=== PATIENT | female | born 1945 | race Caucasian/White ===

== ENCOUNTER → 2020-05-06 08:53 | Outpatient (BNVA) | payer MEDICARE, SELFPAY | PROVIDERS: PCP Hospitalist; Referring Provider Hospitalist; Visit Provider Hospitalist | DX: J44.9 Chronic obstructive pulmonary disease, unspecified (principal); G47.33 Obstructive sleep apnea (adult) (pediatric); R91.8 Other nonspecific abnormal finding of lung field; J70.1 Chronic and other pulmonary manifestations due to radiation; Z99.89 Dependence on other enabling machines and devices; Z79.51 Long term (current) use of inhaled steroids | CPT/HCPCS: 99212 ==

== ENCOUNTER → 2020-07-28 10:46 | Outpatient (BNVA) | payer MEDICARE, SELFPAY | PROVIDERS: PCP Hospitalist; Visit Provider Hospitalist | DX: R91.8 Other nonspecific abnormal finding of lung field (principal); J70.1 Chronic and other pulmonary manifestations due to radiation; G47.33 Obstructive sleep apnea (adult) (pediatric); J44.9 Chronic obstructive pulmonary disease, unspecified; D68.61 Antiphospholipid syndrome | CPT/HCPCS: 99212 ==

== ENCOUNTER → 2020-08-13 14:44 | Outpatient (BNVA) | payer MEDICARE, SELFPAY | PROVIDERS: PCP Hospitalist; Visit Provider Internal Medicine | DX: R07.89 Other chest pain (principal); J70.1 Chronic and other pulmonary manifestations due to radiation; J44.9 Chronic obstructive pulmonary disease, unspecified; R91.8 Other nonspecific abnormal finding of lung field; D68.61 Antiphospholipid syndrome; G47.33 Obstructive sleep apnea (adult) (pediatric); Z79.01 Long term (current) use of anticoagulants; Z79.899 Other long term (current) drug therapy; Z99.89 Dependence on other enabling machines and devices | CPT/HCPCS: 99212 ==

== ENCOUNTER → 2020-08-20 15:04 | Outpatient (BNVA) | payer MEDICARE, SELFPAY | PROVIDERS: PCP Hospitalist; Visit Provider Hospitalist | DX: R07.82 Intercostal pain (principal); J70.1 Chronic and other pulmonary manifestations due to radiation; R91.8 Other nonspecific abnormal finding of lung field; G47.33 Obstructive sleep apnea (adult) (pediatric); G44.1 Vascular headache, not elsewhere classified | CPT/HCPCS: Q3014 ==

== ENCOUNTER → 2020-08-31 09:50 | Outpatient (BNVA) | payer MEDICARE, SELFPAY | PROVIDERS: PCP Hospitalist; Visit Provider Hospitalist | DX: R07.82 Intercostal pain (principal); D68.61 Antiphospholipid syndrome; R91.8 Other nonspecific abnormal finding of lung field; G47.33 Obstructive sleep apnea (adult) (pediatric); J70.1 Chronic and other pulmonary manifestations due to radiation; J44.1 Chronic obstructive pulmonary disease with (acute) exacerbation; I31.3 Pericardial effusion (noninflammatory) | CPT/HCPCS: 99212 ==

== ENCOUNTER → 2020-09-09 09:20 | Outpatient (BNVA) | payer MEDICARE, SELFPAY | PROVIDERS: PCP Hospitalist; Visit Provider Hospitalist | DX: Z13.89 Encounter for screening for other disorder (principal) | CPT/HCPCS: 99212 ==

== ENCOUNTER 2020-09-09 10:28 | Outpatient (REF) | payer MEDICARE, SELFPAY ==
--- NOTE | 2020-09-09 11:00 | PFT_ITS ---
INDICATION: Dyspnea. SPIROMETRY: The FEV1 to FVC of 76% with an FEV1 of 1.63 L, which is 84% predicted, and an FVC of 2.13 L, which is 82% predicted. No significant response to bronchodilators noted. Maximum voluntary ventilation 82% predicted. LUNG VOLUMES: Total lung capacity 76% predicted with an expiratory reserve volume of 59% predicted. DIFFUSION CAPACITY: DLCO of 41% predicted. COMPARISONS: None available at this time. INTERPRETATION: No obstructive ventilatory defect. No significant response to bronchodilators noted and normal maximum voluntary ventilation. The patient does have a mild restrictive ventilatory defect likely secondary to underlying radiation fibrosis and lung resection. In addition to that, the patient does have a severe decrease in the diffusion capacity secondary to her underlying COPD, emphysema, pulmonary fibrosis and lung resection. Clinical correlation warranted. We will compare to previous PFT when available. MD ASHLEY Martino/MODGabriella / [id number]
== END 2020-09-09 10:29 | disposition home or self-care (01) ==
LOC: HO.RESP 10:28
PROVIDERS: PCP Hospitalist; Visit Provider Hospitalist
DX: J44.1 Chronic obstructive pulmonary disease with (acute) exacerbation (principal)
CPT/HCPCS: 94010; 94727; 94729; 99212

== ENCOUNTER → 2020-09-25 11:06 | Outpatient (BNVA) | payer MEDICARE, SELFPAY | PROVIDERS: Visit Provider Hospitalist | DX: R07.82 Intercostal pain (principal); J44.1 Chronic obstructive pulmonary disease with (acute) exacerbation; I31.3 Pericardial effusion (noninflammatory); A31.9 Mycobacterial infection, unspecified; J70.1 Chronic and other pulmonary manifestations due to radiation; D68.61 Antiphospholipid syndrome; R91.8 Other nonspecific abnormal finding of lung field; G47.33 Obstructive sleep apnea (adult) (pediatric); Z79.899 Other long term (current) drug therapy | CPT/HCPCS: 99212 ==

== ENCOUNTER → 2020-10-05 13:21 | Outpatient (BNVA) | payer MEDICARE, SELFPAY | PROVIDERS: Visit Provider Internal Medicine Cardiovascular Disease | DX: R07.82 Intercostal pain (principal); R06.00 Dyspnea, unspecified | CPT/HCPCS: 93005; 99202 ==

== ENCOUNTER → 2020-11-09 12:57 | Outpatient (BNVA) | payer MEDICARE, SELFPAY | PROVIDERS: PCP Hospitalist; Visit Provider Hospitalist | DX: J44.1 Chronic obstructive pulmonary disease with (acute) exacerbation (principal); G47.33 Obstructive sleep apnea (adult) (pediatric); R91.8 Other nonspecific abnormal finding of lung field; J70.1 Chronic and other pulmonary manifestations due to radiation; D68.61 Antiphospholipid syndrome | CPT/HCPCS: 99212 ==

== ENCOUNTER → 2020-11-26 13:15 | Outpatient (BNVA) | payer MEDICARE, SELFPAY | PROVIDERS: PCP Hospitalist; Visit Provider Internal Medicine Cardiovascular Disease | DX: R06.00 Dyspnea, unspecified (principal); I27.20 Pulmonary hypertension, unspecified; R94.39 Abnormal result of other cardiovascular function study; D68.61 Antiphospholipid syndrome | CPT/HCPCS: 99212 ==

== ENCOUNTER 2020-11-27 09:01 | Outpatient (REF) | payer MEDICARE, SELFPAY ==
--- NOTE | ~2020-11-27 | XR_ITS ---
EXAMINATION: XR CHEST CLINICAL INFORMATION: Intercostal pain COMPARISON: Previous chest x-ray most recent April [address] scans most recent June 2020 TECHNIQUE: 2 views of the chest were obtained. FINDINGS: The cardiac and mediastinal contours are stable. There are postoperative changes to the left hemithorax with shift of the central mediastinal structures to the left. There is linear scarring or subsegmental atelectasis in the left mid and lower chest. The right lung is clear. There is a a small left pleural effusion or pleural thickening that is stable. There is no right pleural effusion. There are degenerative changes of the spine. There is an old healed 10 rib fracture is seen on the lateral view that is unchanged from previous chest x-rays. No acute fracture or bone lesion is seen. XR/XR chest 2V IMPRESSION: Stable postsurgical changes to the left hemithorax. Small left pleural effusion or pleural thickening and minimal scarring or chronic subsegmental atelectasis in the left lower lung similar to previous exams.
== END 2020-11-27 09:02 | disposition home or self-care (01) ==
LOC: HO.XRAY 09:01
PROVIDERS: PCP Hospitalist; Visit Provider Hospitalist
DX: R07.82 Intercostal pain (principal); B02.29 Other postherpetic nervous system involvement; R06.00 Dyspnea, unspecified; I27.20 Pulmonary hypertension, unspecified; A31.9 Mycobacterial infection, unspecified; J70.1 Chronic and other pulmonary manifestations due to radiation; D68.61 Antiphospholipid syndrome; R91.8 Other nonspecific abnormal finding of lung field; G47.33 Obstructive sleep apnea (adult) (pediatric); J44.1 Chronic obstructive pulmonary disease with (acute) exacerbation; Z99.89 Dependence on other enabling machines and devices; Z79.899 Other long term (current) drug therapy
CPT/HCPCS: 71046; 99212

== ENCOUNTER → 2020-12-21 11:05 | Outpatient (BNVA) | payer MEDICARE, SELFPAY | PROVIDERS: PCP Hospitalist; Visit Provider Nurse Practitioner Family | DX: I27.20 Pulmonary hypertension, unspecified (principal); A31.9 Mycobacterial infection, unspecified; R07.82 Intercostal pain; D68.61 Antiphospholipid syndrome; R91.8 Other nonspecific abnormal finding of lung field; G47.33 Obstructive sleep apnea (adult) (pediatric); J44.1 Chronic obstructive pulmonary disease with (acute) exacerbation | CPT/HCPCS: 99202; 99212 ==

== ENCOUNTER → 2020-12-30 12:43 | Outpatient (BNVA) | payer MEDICARE, SELFPAY | PROVIDERS: Visit Provider Nurse Practitioner Family | DX: M79.602 Pain in left arm (principal); M79.601 Pain in right arm; R07.82 Intercostal pain; I31.3 Pericardial effusion (noninflammatory); I25.10 Atherosclerotic heart disease of native coronary artery without angina pectoris; I73.9 Peripheral vascular disease, unspecified; G47.33 Obstructive sleep apnea (adult) (pediatric); J44.9 Chronic obstructive pulmonary disease, unspecified; G90.521 Complex regional pain syndrome I of right lower limb; I27.20 Pulmonary hypertension, unspecified; I26.99 Other pulmonary embolism without acute cor pulmonale; J90 Pleural effusion, not elsewhere classified; R94.39 Abnormal result of other cardiovascular function study; Z90.2 Acquired absence of lung [part of]; Z85.118 Personal history of other malignant neoplasm of bronchus and lung; Z90.710 Acquired absence of both cervix and uterus; Z88.2 Allergy status to sulfonamides; Z91.041 Radiographic dye allergy status; Z99.89 Dependence on other enabling machines and devices; Z79.51 Long term (current) use of inhaled steroids; Z79.899 Other long term (current) drug therapy | CPT/HCPCS: 93005; 99212 ==

== ENCOUNTER → 2021-01-25 11:08 | Outpatient (BNVA) | payer MEDICARE, SELFPAY | PROVIDERS: PCP Hospitalist; Visit Provider Hospitalist | DX: I20.8 Other forms of angina pectoris (principal); J44.1 Chronic obstructive pulmonary disease with (acute) exacerbation; R06.00 Dyspnea, unspecified; I27.20 Pulmonary hypertension, unspecified; R07.89 Other chest pain; D68.61 Antiphospholipid syndrome; J70.1 Chronic and other pulmonary manifestations due to radiation; R91.8 Other nonspecific abnormal finding of lung field; G47.33 Obstructive sleep apnea (adult) (pediatric); A31.9 Mycobacterial infection, unspecified | CPT/HCPCS: 99212 ==

== ENCOUNTER → 2021-02-01 14:27 | Outpatient (BNVA) | payer MEDICARE, SELFPAY | PROVIDERS: PCP Hospitalist; Visit Provider Hospitalist | DX: J05.0 Acute obstructive laryngitis [croup] (principal); J40 Bronchitis, not specified as acute or chronic; G47.33 Obstructive sleep apnea (adult) (pediatric); J44.1 Chronic obstructive pulmonary disease with (acute) exacerbation; R91.8 Other nonspecific abnormal finding of lung field; J70.1 Chronic and other pulmonary manifestations due to radiation | CPT/HCPCS: 99212 ==

== ENCOUNTER → 2021-02-18 09:23 | Outpatient (BNVA) | payer MEDICARE, SELFPAY | PROVIDERS: Visit Provider Hospitalist | CPT/HCPCS: Q3014 ==

== ENCOUNTER → 2021-03-02 09:03 | Outpatient (BNVA) | payer MEDICARE, SELFPAY | PROVIDERS: PCP Internal Medicine; Visit Provider Hospitalist | DX: G47.33 Obstructive sleep apnea (adult) (pediatric) (principal); J44.1 Chronic obstructive pulmonary disease with (acute) exacerbation; J70.1 Chronic and other pulmonary manifestations due to radiation; J96.10 Chronic respiratory failure, unspecified whether with hypoxia or hypercapnia; R91.8 Other nonspecific abnormal finding of lung field | CPT/HCPCS: 99212 ==

== ENCOUNTER 2021-03-17 09:10 | Outpatient (REF) | payer MEDICARE, SELFPAY ==
--- NOTE | ~2021-03-17 | CT_ITS ---
EXAMINATION: CT CHEST WITHOUT CONTRAST CLINICAL INFORMATION: Lung cancer. COPD. Follow up pulmonary nodules. COMPARISON: Previous chest CT scans, most recent June 2020 and chest x-ray, most recent November 2020. TECHNIQUE: Multidetector volumetric CT imaging of the chest was done. Axial MIP volume rendering provided. Sagittal and coronal reformatted images were obtained. This CT examination was performed using dose optimization techniques as appropriate, variously including the following: *Automated exposure control *Adjustment of mA and/or kV according to patient size (this includes techniques or standardized protocols for targeted exams where dose is matched to indication/reason for exam; i.e. extremities or head) *Use of iterative reconstruction technique DLP: 106 mGy-cm FINDINGS: LUNGS: Left: There are postsurgical changes to the left hemithorax with volume loss, shift of the central mediastinal structures to the left and surgical clips in the left pulmonary hilum. There is scarring or atelectasis seen in the left pulmonary hilum and mild traction bronchiectasis. There is linear scarring or chronic subsegmental atelectasis at the left lung base that is stable. Right: There are new ground-glass attenuation peribronchial opacities in the right upper lobe, largest measuring 7 mm (axial image 86, series 7). The 3 mm right upper lobe nodule (axial image 86, series 7) is stable. The 4 mm ground-glass attenuation nodule in the right upper lobe (axial image 139, series 7) is stable. The 2 x 5 mm ground-glass attenuation right upper lobe nodule (axial image 223, series 7) is stable. The 2 mm peripheral right lower lobe nodule (axial image 340, series 7) is stable. The 3 mm peripheral semisolid right lower lobe nodule (axial image 352, series 7) is stable. The previously identified 3 mm right lower lobe nodule at the posterior lung base that was new on the June 2020 exam is no longer seen. There are clustered new peribronchial nodules seen in the right lower lobe (for example axial image 402, series 7). This probably represents airways disease. MEDIASTINUM: The heart is upper normal in size. There is a trace pericardial effusion or thickening that is stable. There is coronary artery calcification. There are small mediastinal lymph nodes that are stable. No enlarged lymph nodes are seen. PLEURA: There is left pleural thickening. There is a small left pleural effusion. This is increased in size from the most recent exam June 2020. There is no right pleural effusion. AXILLAE: No lymphadenopathy. UPPER ABDOMEN: There is a 1 cm low-attenuation lesion in the upper pole of the left kidney that probably represents a cyst and is stable. OSSEOUS STRUCTURES: There are mild degenerative changes of the spine and scoliosis. CT/CT chest wo con IMPRESSION: Stable postsurgical changes to the left lung. The 3 mm posterior basal right lower lobe nodule that was new on the most recent exam June 2020 is no longer seen. There are new peribronchial ground-glass opacities in the right upper lobe and peribronchial nodules and increased peribronchial attenuation in the right lower lobe probably related to airways disease. Otherwise right pulmonary nodules are stable. Increasing small left pleural effusion compared to June 2020 exam.
== END 2021-03-17 09:11 | disposition home or self-care (01) ==
LOC: HO.CT 09:10
PROVIDERS: PCP Internal Medicine; Visit Provider Hospitalist
DX: R91.8 Other nonspecific abnormal finding of lung field (principal)
CPT/HCPCS: 71250

== ENCOUNTER 2021-03-25 11:10 | Outpatient (REF) | payer MEDICARE, SELFPAY ==
[2021-03-25 14:18] LABS: Appearance Urine HAZY; Color Urine YELLOW; Glucose Urine UA NEG (NEG); Leukocyte Esterase Urine NEG (NEG); Nitrite Urine NEG (NEG); Specific Gravity - Urine 1.025 (1.005-1.025); Urine Blood NEG (NEG); Urine Ketones 5 MG/DL (NEG); Urine Protein NEG (NEG-TRACE)
[2021-03-25 16:03] LABS: Erythrocyte Sedimentation Rate 38 MM/HR (0-20)
[2021-03-30 01:41] LABS: IgA 110 mg/dL (70-320); IgG 759 mg/dL (600-1540); IgM 608 mg/dL (50-300)
[2021-03-30 08:11] LABS: Immunoglobulin E 2 kU/L (<OR=114)
[2021-03-30 19:36] LABS: Immunoglobulin G Subclass 1 359 mg/dL (382-929); Immunoglobulin G Subclass 2 222 mg/dL (241-700); Immunoglobulin G Subclass 3 28 mg/dL (22-178); Immunoglobulin G Subclass 4 41.7 mg/dL (4-86); Immunoglobulin G Total 732 mg/dL (600-1540)
== END 2021-03-25 11:11 | disposition home or self-care (01) ==
LOC: HO.LAB 11:10
PROVIDERS: PCP Internal Medicine; Visit Provider Hospitalist
DX: J44.1 Chronic obstructive pulmonary disease with (acute) exacerbation (principal); J96.10 Chronic respiratory failure, unspecified whether with hypoxia or hypercapnia; J70.1 Chronic and other pulmonary manifestations due to radiation; G47.33 Obstructive sleep apnea (adult) (pediatric); R91.8 Other nonspecific abnormal finding of lung field; R30.0 Dysuria; D80.1 Nonfamilial hypogammaglobulinemia; Z99.89 Dependence on other enabling machines and devices; Z01.84 Encounter for antibody response examination
CPT/HCPCS: 36415; 81003; 82784; 82785; 85652; 86769; 99212

== ENCOUNTER → 2021-04-22 10:12 | Outpatient (BNVA) | payer MEDICARE, SELFPAY | PROVIDERS: Visit Provider Internal Medicine Cardiovascular Disease | DX: I21.4 Non-ST elevation (NSTEMI) myocardial infarction (principal); R07.82 Intercostal pain; D68.61 Antiphospholipid syndrome | CPT/HCPCS: 99212 ==

== ENCOUNTER → 2021-05-07 14:34 | Outpatient (BNVA) | payer MEDICARE, SELFPAY | PROVIDERS: PCP Internal Medicine; Visit Provider Hospitalist | DX: J96.10 Chronic respiratory failure, unspecified whether with hypoxia or hypercapnia (principal); J44.1 Chronic obstructive pulmonary disease with (acute) exacerbation; G47.33 Obstructive sleep apnea (adult) (pediatric); R91.8 Other nonspecific abnormal finding of lung field; J70.1 Chronic and other pulmonary manifestations due to radiation; D80.1 Nonfamilial hypogammaglobulinemia; D68.61 Antiphospholipid syndrome | CPT/HCPCS: 99212 ==

== ENCOUNTER → 2021-05-17 09:31 | Outpatient (BNVA) | payer MEDICARE, SELFPAY | PROVIDERS: PCP Internal Medicine; Referring Provider Internal Medicine; Visit Provider Internal Medicine Cardiovascular Disease | DX: R07.82 Intercostal pain (principal); R06.00 Dyspnea, unspecified | CPT/HCPCS: 99212 ==

== ENCOUNTER → 2021-05-25 13:23 | Outpatient (BNVA) | payer MEDICARE, SELFPAY | PROVIDERS: PCP Internal Medicine; Visit Provider Hospitalist | DX: J96.11 Chronic respiratory failure with hypoxia (principal); G47.33 Obstructive sleep apnea (adult) (pediatric); J44.1 Chronic obstructive pulmonary disease with (acute) exacerbation; R91.8 Other nonspecific abnormal finding of lung field; J70.1 Chronic and other pulmonary manifestations due to radiation; D80.1 Nonfamilial hypogammaglobulinemia; D68.61 Antiphospholipid syndrome; G47.00 Insomnia, unspecified; I27.20 Pulmonary hypertension, unspecified; I26.99 Other pulmonary embolism without acute cor pulmonale; Z88.2 Allergy status to sulfonamides; Z88.8 Allergy status to other drugs, medicaments and biological substances; Z99.81 Dependence on supplemental oxygen; Z91.041 Radiographic dye allergy status; Z91.010 Allergy to peanuts; Z91.013 Allergy to seafood; Z79.01 Long term (current) use of anticoagulants | CPT/HCPCS: 99212 ==

== ENCOUNTER → 2021-06-11 13:53 | Outpatient (BNVA) | payer MEDICARE, SELFPAY | PROVIDERS: PCP Internal Medicine; Referring Provider Internal Medicine; Visit Provider Nurse Practitioner Family | DX: R00.0 Tachycardia, unspecified (principal) | CPT/HCPCS: 93005 ==

== ENCOUNTER → 2021-08-04 13:59 | Outpatient (BNVA) | payer MEDICARE, SELFPAY | PROVIDERS: PCP Internal Medicine; Referring Provider Internal Medicine; Visit Provider Internal Medicine Cardiovascular Disease | DX: R00.2 Palpitations (principal); D68.61 Antiphospholipid syndrome; I60.9 Nontraumatic subarachnoid hemorrhage, unspecified | CPT/HCPCS: 99212 ==

== ENCOUNTER → 2021-08-16 12:27 | Outpatient (REF) | payer MEDICARE, SELFPAY ==
--- NOTE | ~2021-08-16 | XR_ITS ---
EXAMINATION: XR chest 2V CLINICAL INFORMATION: Reason for Exam R07.9 - Chest pain, unspecified COMPARISON: Chest radiograph 11/27/2020, CT chest 03/17/2021 TECHNIQUE: 2 views of the chest XR/XR chest 2V FINDINGS/IMPRESSION: Post surgical changes of left lower lobectomy and volume loss. No pneumothorax. Stable small left pleural effusion and left basilar opacities. Unchanged cardiomediastinal silhouette. Asymmetric lucency of the left hemithorax may be related to patient positioning, given the appearance of the breast shadows.
== END ==
LOC: HO.CARD 12:27
PROVIDERS: Absent Provider Hospitalist; PCP Internal Medicine; Visit Provider Internal Medicine Cardiovascular Disease
DX: R07.9 Chest pain, unspecified (principal); R00.2 Palpitations
CPT/HCPCS: 71046; 93242; 99212

== ENCOUNTER 2021-08-16 13:58 | Outpatient (REF) | payer MEDICARE, SELFPAY ==
[2021-08-16 14:37] LABS: MANUAL DIFF FLAG NO
[2021-08-16 14:42] LABS: Basophils Absolute Auto 0.1 X10*3/uL (0.0-0.2); Basophils Percent Auto 0.5 % (0-2); Eosinophils Absolute Auto 0.1 X10*3/uL (0.0-0.4); Eosinophils Percent Auto 0.7 % (0-4); Hemoglobin 12.1 g/dl (12.0-16.0); Imm Gran Abs Auto 0.09 X10*3/uL (0.00-0.03); Imm Gran Pct Auto 0.9 % (0.0-0.4); Lymphocytes Absolute Auto 1.2 X10*3/uL (1.2-4.9); Lymphocytes Percent Auto 12.3 % (20-40); Mean Corpuscular HGB Conc 31.8 g/dl (31.0-35.0); Mean Corpuscular Hemoglobin 31.4 pg (27.0-33.0); Mean Corpuscular Volume 98.7 fL (80.0-98.0); Monocytes Absolute Auto 1.1 X10*3/uL (0.1-1.2); Monocytes Percent Auto 11.2 % (2-11); Neutrophils Absolute Auto 7.4 x10*3/uL (2.0-8.3); Neutrophils Percent Auto 74.4 % (45-73); Platelet Count 250 X10*3/uL (160-400); Red Blood Count 3.85 X10*6/uL (4.20-5.50); Red Cell Distribution Width 14.1 % (11.0-16.0)
[2021-08-16 14:48] LABS: D Dimer High Sensitivity 285 NG/ML
[2021-08-16 15:06] LABS: Anion Gap 11 (12-20); Blood Urea Nitrogen 16 mg/dL (9-16); Calcium 10.3 mg/dL (8.4-10.2); Carbon Dioxide 32 mmol/L (22-29); Chloride 98 mmol/L (96-108); Estimated Glomerular Filt Rate 59; Glucose Random 95 mg/dL (60-115); Potassium 4.5 mmol/L (3.3-5.1); Sodium 136 mmol/L (135-145)
[2021-08-16 15:09] LABS: Troponin-I High Sensitivity 13.9 ng/L (<3.5-17.0)
[2021-08-16 15:30] LABS: Erythrocyte Sedimentation Rate 30 MM/HR (0-20)
== END 2021-08-16 13:59 | disposition home or self-care (01) ==
LOC: HO.LAB 13:58
PROVIDERS: PCP Internal Medicine; Visit Provider Hospitalist
DX: R07.9 Chest pain, unspecified (principal)
CPT/HCPCS: 36415; 71046; 80048; 84484; 85025; 85379; 85652; 99212

== ENCOUNTER → 2021-08-18 12:49 | Outpatient (REF) | payer MEDICARE, SELFPAY ==
--- NOTE | ~2021-08-18 | NM_ITS ---
EXAMINATION: PULMONARY PERFUSION STUDY CLINICAL INFORMATION: Pain. COMPARISON: The previous lung scan dated 12/30/2019 is available for comparison. Radiographs the chest dated 08/16/2021 are also available for comparison. TECHNIQUE: Following the intravenous administration of 4.0 mCi Tc-99m MAA an 8-view perfusion study was performed using a dual detector gamma scintillation camera. No ventilation images were obtained. FINDINGS: Perfusion images: There is diffusely decreased activity in the left lung. On the 08/16/2021 chest radiographs there is evidence of volume loss and postsurgical changes in the left lung on the perfusion images are well matched to these radiographic findings. Perfusion to the right lung appears normal with no segmental or focal anatomic perfusion defects. Compared to the previous lung scan dated 12/30/2019, there is no significant change in the appearance of either lung. NM/NM pul perfusion IMPRESSION: Very low probability of pulmonary embolism. Chronic left lung the malleus are noted consistent with the chest radiograph appearance and history of prior surgery.
== END ==
LOC: HO.NUCMED 12:49
PROVIDERS: PCP Internal Medicine; Referring Provider Internal Medicine; Visit Provider Hospitalist
DX: R07.9 Chest pain, unspecified (principal)
CPT/HCPCS: 78580; A9540

== ENCOUNTER → 2021-08-31 10:49 | Outpatient (BNVA) | payer MEDICARE, SELFPAY | PROVIDERS: PCP Internal Medicine; Visit Provider Hospitalist | DX: J96.10 Chronic respiratory failure, unspecified whether with hypoxia or hypercapnia (principal); R91.8 Other nonspecific abnormal finding of lung field; J44.1 Chronic obstructive pulmonary disease with (acute) exacerbation; J70.1 Chronic and other pulmonary manifestations due to radiation; G47.33 Obstructive sleep apnea (adult) (pediatric); G47.00 Insomnia, unspecified; D80.1 Nonfamilial hypogammaglobulinemia; D68.61 Antiphospholipid syndrome; R10.9 Unspecified abdominal pain; R07.9 Chest pain, unspecified; Z23 Encounter for immunization | CPT/HCPCS: 90471; 90732; 99212 ==

== ENCOUNTER 2021-09-14 09:39 | Outpatient (REF) | payer MEDICARE, SELFPAY | END 2021-09-14 09:40 | disposition home or self-care (01) | LOC: CF 09:39 | PROVIDERS: PCP Internal Medicine; Visit Provider Hospitalist | DX: J96.10 Chronic respiratory failure, unspecified whether with hypoxia or hypercapnia (principal); G47.33 Obstructive sleep apnea (adult) (pediatric); J44.1 Chronic obstructive pulmonary disease with (acute) exacerbation; J70.1 Chronic and other pulmonary manifestations due to radiation; D80.1 Nonfamilial hypogammaglobulinemia; D68.61 Antiphospholipid syndrome; G47.00 Insomnia, unspecified; I60.9 Nontraumatic subarachnoid hemorrhage, unspecified | CPT/HCPCS: 99212 ==

== ENCOUNTER 2021-09-27 09:49 | Outpatient (REF) | payer MEDICARE, SELFPAY ==
--- NOTE | ~2021-09-27 | CT_ITS ---
EXAMINATION: CT CHEST WITHOUT CONTRAST CLINICAL INFORMATION: Chest pain COMPARISON: Previous chest x-ray March 2021 TECHNIQUE: Multidetector volumetric CT imaging of the chest was done. Axial MIP volume rendering provided. Sagittal and coronal reformatted images were obtained. This CT examination was performed using dose optimization techniques as appropriate, variously including the following: *Automated exposure control *Adjustment of mA and/or kV according to patient size (this includes techniques or standardized protocols for targeted exams where dose is matched to indication/reason for exam; i.e. extremities or head) *Use of iterative reconstruction technique DLP: 176 mGy-cm FINDINGS: LUNGS: There are stable postsurgical changes to the left hemithorax with volume loss, shift of the central mediastinal structures to the left and surgical clips in the left pulmonary hilum. There is atelectasis and focal bronchiectasis seen in the central left lung adjacent to the fissure that appears unchanged. The previously identified clustered peribronchial ground-glass attenuation nodules in the right upper lobe are no longer seen. The previously identified area of ground-glass attenuation and clustered peribronchial nodules in the right lower lobe on March 2021 exam, is no longer seen. The small pulmonary nodules are stable. Largest pulmonary nodule is a 4 mm right upper lobe nodule, axial image 99 series 5, and superior segment right lower lobe nodule, axial image 130 series 5. MEDIASTINUM: There is coronary artery calcification. The mediastinum is otherwise normal. PLEURA: There is a small left pleural effusion. This appears decreased from previous exam. There is no right pleural effusion. AXILLA: No lymphadenopathy. UPPER ABDOMEN: There are small low-attenuation lesions in the upper pole of the left kidney probably representing cysts. OSSEOUS STRUCTURES: Unremarkable. CT/CT chest wo con IMPRESSION: Stable postsurgical changes to the left hemithorax. Resolved ground-glass attenuation in the right upper and right lower lobes and clustered right lower lobe peribronchial nodules from March 2021. Small pulmonary nodules are otherwise stable. Small left pleural effusion slightly decreased from previous exam. Coronary artery calcification. Fleischner guidelines were followed.
== END 2021-09-27 09:50 | disposition home or self-care (01) ==
LOC: HO.CT 09:49
PROVIDERS: Visit Provider Hospitalist
DX: R07.9 Chest pain, unspecified (principal); R91.8 Other nonspecific abnormal finding of lung field
CPT/HCPCS: 71250

== ENCOUNTER → 2021-09-29 10:55 | Outpatient (BNVA) | payer MEDICARE, SELFPAY | PROVIDERS: PCP Internal Medicine; Visit Provider Hospitalist | DX: J44.1 Chronic obstructive pulmonary disease with (acute) exacerbation (principal); J70.1 Chronic and other pulmonary manifestations due to radiation; J96.10 Chronic respiratory failure, unspecified whether with hypoxia or hypercapnia; R91.8 Other nonspecific abnormal finding of lung field; G47.33 Obstructive sleep apnea (adult) (pediatric); G47.00 Insomnia, unspecified; D80.1 Nonfamilial hypogammaglobulinemia; D68.61 Antiphospholipid syndrome; I50.30 Unspecified diastolic (congestive) heart failure | CPT/HCPCS: 99212 ==

== ENCOUNTER → 2021-10-13 14:49 | Outpatient (BNVA) | payer MEDICARE, SELFPAY | PROVIDERS: PCP Internal Medicine; Referring Provider Internal Medicine; Visit Provider Nurse Practitioner Family | DX: R00.2 Palpitations (principal); R06.00 Dyspnea, unspecified; I25.10 Atherosclerotic heart disease of native coronary artery without angina pectoris; D68.61 Antiphospholipid syndrome | CPT/HCPCS: 93005; 99212; Q3014 ==

== ENCOUNTER → 2021-10-27 13:50 | Outpatient (BNVA) | payer MEDICARE, SELFPAY | PROVIDERS: PCP Internal Medicine; Visit Provider Internal Medicine Pulmonary Disease | DX: J45.909 Unspecified asthma, uncomplicated (principal) | CPT/HCPCS: 99212 ==

== ENCOUNTER 2021-11-17 13:02 | Outpatient (REF) | payer MEDICARE, SELFPAY ==
[2021-11-17 14:57] LABS: ABG Refer to POC result
[2021-11-17 15:01] LABS: ABG pCO2 31 mmHg (32-45); ABG pH 7.59 (7.35-7.45)
[2021-11-17 15:02] LABS: ABG Base Excess 9.3 mmol/L; ABG HCO3 30 mmol/L (22-26); ABG pO2 119 mmHg (83-108)
== END 2021-11-17 13:03 | disposition home or self-care (01) ==
LOC: HO.LAB 13:02
PROVIDERS: Absent Provider Hospitalist; PCP Internal Medicine; Referring Provider Internal Medicine; Visit Provider Internal Medicine Cardiovascular Disease
DX: J44.1 Chronic obstructive pulmonary disease with (acute) exacerbation (principal); J96.10 Chronic respiratory failure, unspecified whether with hypoxia or hypercapnia; I50.30 Unspecified diastolic (congestive) heart failure
CPT/HCPCS: 82803; 93005; 99212; Q3014

== ENCOUNTER → 2021-11-24 09:52 | Outpatient (BNVA) | payer MEDICARE, SELFPAY | PROVIDERS: PCP Internal Medicine; Visit Provider Hospitalist | DX: J96.10 Chronic respiratory failure, unspecified whether with hypoxia or hypercapnia (principal); R91.8 Other nonspecific abnormal finding of lung field; G47.33 Obstructive sleep apnea (adult) (pediatric); J44.1 Chronic obstructive pulmonary disease with (acute) exacerbation; J70.1 Chronic and other pulmonary manifestations due to radiation; D80.1 Nonfamilial hypogammaglobulinemia; D68.61 Antiphospholipid syndrome; G47.00 Insomnia, unspecified; K57.92 Diverticulitis of intestine, part unspecified, without perforation or abscess without bleeding | CPT/HCPCS: 99212 ==

== ENCOUNTER → 2021-12-22 09:59 | Outpatient (BNVA) | payer MEDICARE, SELFPAY | PROVIDERS: PCP Internal Medicine; Visit Provider Hospitalist | DX: J44.1 Chronic obstructive pulmonary disease with (acute) exacerbation (principal); R91.8 Other nonspecific abnormal finding of lung field; J96.10 Chronic respiratory failure, unspecified whether with hypoxia or hypercapnia; J70.1 Chronic and other pulmonary manifestations due to radiation; G47.33 Obstructive sleep apnea (adult) (pediatric); I50.30 Unspecified diastolic (congestive) heart failure; D80.1 Nonfamilial hypogammaglobulinemia; D68.61 Antiphospholipid syndrome; G47.00 Insomnia, unspecified; Z86.711 Personal history of pulmonary embolism; Z79.52 Long term (current) use of systemic steroids; Z79.899 Other long term (current) drug therapy; Z99.81 Dependence on supplemental oxygen | CPT/HCPCS: 99212 ==

== ENCOUNTER 2022-01-03 11:10 | Emergency (ER) | payer MEDICARE, SELFPAY ==
--- NOTE | 2022-01-03 | ECG_ITS ---
Test Reason : cp Blood Pressure : / mmHG Vent. Rate : 150 BPM Atrial Rate : 127 BPM P-R Int : 174 ms QRS Dur : 106 ms QT Int : 378 ms P-R-T Axes : -83 -02 146 degrees QTc Int : 597 ms Artifact in tracing Undetermined rhythm Due to poor quality, not suitable for interpretation No previous ECGs available Referred By: Generic ED Physician Electronically Signed By:CAROL ANN PAK
--- NOTE | ~2022-01-03 | XR_ITS ---
EXAMINATION: XR CHEST CLINICAL INFORMATION: Hemoptysis COMPARISON: 08/16/[address] chest 09/27/2021 TECHNIQUE: 2 views of the chest were obtained. FINDINGS: Since the prior chest radiograph, there has been some continued mild decrease in size of the left pleural effusion/pleural thickening. Changes of left lower lobectomy with volume loss persist. Some basilar scarring/atelectasis is seen. The right lung is clear without effusion. Heart size normal. No evidence of CHF. XR/XR chest 2V IMPRESSION: No acute intrathoracic disease. Postoperative changes as described above.
[2022-01-03 11:27] VITALS: BP 156/79; PULSE 85; RESP 18; TEMP 37.1; O2SAT 95; BMI 22.6
--- NOTE | 2022-01-03 11:36 | ECG_ITS ---
Test Reason : cp Blood Pressure : / mmHG Vent. Rate : 080 BPM Atrial Rate : 080 BPM P-R Int : 148 ms QRS Dur : 110 ms QT Int : 390 ms P-R-T Axes : 068 -50 066 degrees QTc Int : 449 ms Normal sinus rhythm Possible Left atrial enlargement Left anterior fascicular block Left ventricular hypertrophy with repolarization abnormality ( R in aVL , [place] product ) Abnormal ECG When compared with ECG of 03-JAN-2022 11:34, due to poor quality of prior EKG, cannot compare. Referred By: Orlin Gruber Electronically Signed By:CAROL ANN PAK
[2022-01-03 11:54] LABS: MANUAL DIFF FLAG NO
[2022-01-03 11:56] LABS: Basophils Absolute Auto 0.1 X10*3/uL (0.0-0.2); Basophils Percent Auto 0.5 % (0-2); Eosinophils Absolute Auto 0.2 X10*3/uL (0.0-0.4); Eosinophils Percent Auto 0.9 % (0-4); Hematocrit 38.8 % (37.0-47.0); Hemoglobin 12.7 g/dl (12.0-16.0); Imm Gran Pct Auto 1.2 % (0.0-0.4); Lymphocytes Absolute Auto 0.7 X10*3/uL (1.2-4.9); Lymphocytes Percent Auto 4.3 % (20-40); Mean Corpuscular HGB Conc 32.7 g/dl (31.0-35.0); Mean Corpuscular Hemoglobin 32.1 pg (27.0-33.0); Mean Platelet Volume 10.5 fL (9.4-12.3); Monocytes Absolute Auto 1.1 X10*3/uL (0.1-1.2); Monocytes Percent Auto 6.2 % (2-11); Neutrophils Absolute Auto 14.8 x10*3/uL (2.0-8.3); Neutrophils Percent Auto 86.9 % (45-73); Platelet Count 266 X10*3/uL (160-400); Red Blood Count 3.96 X10*6/uL (4.20-5.50); White Blood Count 17.1 X10*3/uL (4.8-10.8)
[2022-01-03 12:04] LABS: INTERNATIONAL NORM RATIO 2.4 (0.9-1.1); Prothrombin Time 28.3 SEC (9.9-13.0)
[2022-01-03 12:15] LABS: Anion Gap 15 (12-20); Blood Urea Nitrogen 18 mg/dL (9-16); Carbon Dioxide 27 mmol/L (22-29); Chloride 102 mmol/L (96-108); Creatinine Clr Calc Pharmacy 46.2; Estimated Glomerular Filt Rate > 60; Glucose Random 109 mg/dL (60-115); Potassium 4.6 mmol/L (3.3-5.1); Sodium 139 mmol/L (135-145)
== END 2022-01-03 19:12 | disposition left against medical advice (07) ==
PROVIDERS: Emergency Provider Emergency Medicine; PCP Internal Medicine
DX: R04.2 Hemoptysis (principal); R07.89 Other chest pain; Z79.01 Long term (current) use of anticoagulants; Z79.899 Other long term (current) drug therapy
CPT/HCPCS: 36415; 71046; 80048; 85025; 85610; 93005; 99281; 99283

== ENCOUNTER 2022-01-20 14:59 | Outpatient (REF) | payer MEDICARE, SELFPAY ==
[2022-01-20 15:35] LABS: MANUAL DIFF FLAG NO
[2022-01-20 16:03] LABS: D Dimer High Sensitivity 228 NG/ML
[2022-01-20 16:05] LABS: Basophils Absolute Auto 0.1 X10*3/uL (0.0-0.2); Basophils Percent Auto 0.9 % (0-2); Eosinophils Absolute Auto 0.3 X10*3/uL (0.0-0.4); Eosinophils Percent Auto 2.9 % (0-4); Hematocrit 39.7 % (37.0-47.0); Hemoglobin 12.8 g/dl (12.0-16.0); Imm Gran Abs Auto 0.11 X10*3/uL (0.00-0.03); Imm Gran Pct Auto 1.1 % (0.0-0.4); Lymphocytes Percent Auto 9.8 % (20-40); Mean Corpuscular HGB Conc 32.2 g/dl (31.0-35.0); Mean Corpuscular Hemoglobin 31.7 pg (27.0-33.0); Mean Corpuscular Volume 98.3 fL (80.0-98.0); Mean Platelet Volume 10.9 fL (9.4-12.3); Monocytes Absolute Auto 1.1 X10*3/uL (0.1-1.2); Monocytes Percent Auto 10.8 % (2-11); Neutrophils Absolute Auto 7.8 x10*3/uL (2.0-8.3); Neutrophils Percent Auto 74.5 % (45-73); Platelet Count 259 X10*3/uL (160-400); Red Blood Count 4.04 X10*6/uL (4.20-5.50); Red Cell Distribution Width 13.1 % (11.0-16.0); White Blood Count 10.4 X10*3/uL (4.8-10.8)
[2022-01-20 17:09] LABS: Erythrocyte Sedimentation Rate 32 MM/HR (0-20)
[2022-01-22 14:31] LABS: CRP High Sensitivity 4.6 mg/L
[2022-01-24 14:56] LABS: Immunoglobulin G Subclass 1 319 mg/dL (382-929); Immunoglobulin G Subclass 2 293 mg/dL (241-700); Immunoglobulin G Subclass 3 39 mg/dL (22-178); Immunoglobulin G Subclass 4 43.8 mg/dL (4-86); Immunoglobulin G Total 705 mg/dL (600-1540)
[2022-01-25 09:35] LABS: Myeloperoxidase Antibody <1.0 AI; Proteinase 3 PR3 Antibodies <1.0 AI
[2022-01-26 16:07] LABS: Anti Nuclear Antibody Pattern Nuclear, Nucleolar; Anti Nuclear Antibody Screen POSITIVE (NEGATIVE)
== END 2022-01-20 15:00 | disposition home or self-care (01) ==
LOC: HO.LAB 14:59
PROVIDERS: PCP Internal Medicine; Visit Provider Hospitalist
DX: J96.10 Chronic respiratory failure, unspecified whether with hypoxia or hypercapnia (principal); J44.1 Chronic obstructive pulmonary disease with (acute) exacerbation; J70.1 Chronic and other pulmonary manifestations due to radiation; R07.9 Chest pain, unspecified; R91.8 Other nonspecific abnormal finding of lung field; G47.33 Obstructive sleep apnea (adult) (pediatric); D80.1 Nonfamilial hypogammaglobulinemia; D68.61 Antiphospholipid syndrome; G47.00 Insomnia, unspecified; I50.30 Unspecified diastolic (congestive) heart failure; Z20.822 Contact with and (suspected) exposure to COVID-19
CPT/HCPCS: 82784; 85025; 85379; 85652; 86021; 86038; 86039; 86141; 99212; U0003; U0005

== ENCOUNTER 2022-02-02 11:02 | Outpatient (REF) | payer MEDICARE, SELFPAY ==
[2022-02-03 14:02] LABS: Complement C3 114 mg/dL (83-193)
[2022-02-04 14:31] LABS: Anti DNA DS Antibody <1 IU/mL; Antibody to SS-A Antigen <1.0 NEG AI (<1.0 NEG); Antibody to SS-B Antigen <1.0 NEG AI (<1.0 NEG); Scleroderma 70 Antibody <1.0 NEG AI (<1.0 NEG)
[2022-02-10 17:42] LABS: EJ Autoantibodies NOT DETECTED (NOT DETECTED); JO-1 Antibody <1.0 NEG AI (<1.0 NEGATIVE); MI 2 Autoantibodies NOT DETECTED (NOT DETECTED); OJ Autoantibodies NOT DETECTED (NOT DETECTED); PL 12 Autoantibodies NOT DETECTED (NOT DETECTED); PL 7 Autoantibodies NOT DETECTED (NOT DETECTED)
== END 2022-02-02 11:03 | disposition home or self-care (01) ==
LOC: HO.LAB 11:02
PROVIDERS: PCP Internal Medicine; Visit Provider Hospitalist
DX: R91.8 Other nonspecific abnormal finding of lung field (principal); J96.10 Chronic respiratory failure, unspecified whether with hypoxia or hypercapnia; G47.33 Obstructive sleep apnea (adult) (pediatric); J44.1 Chronic obstructive pulmonary disease with (acute) exacerbation; J70.1 Chronic and other pulmonary manifestations due to radiation; R80.1 Persistent proteinuria, unspecified; D68.61 Antiphospholipid syndrome; G47.00 Insomnia, unspecified; I50.30 Unspecified diastolic (congestive) heart failure; R76.8 Other specified abnormal immunological findings in serum
CPT/HCPCS: 36415; 86160; 86225; 86235; 99212

== ENCOUNTER 2022-03-16 10:22 | Outpatient (REF) | payer MEDICARE, SELFPAY ==
--- NOTE | ~2022-03-16 | XR_ITS ---
EXAMINATION: XR CHEST CLINICAL INFORMATION: Covid 19 COMPARISON: Chest x-ray 01/03/2022 TECHNIQUE: 2 views of the chest were obtained. FINDINGS: Cardiac silhouette is normal in size. Atherosclerotic disease of the aortic arch. Similar hypoinflation of the left hemithorax consistent with prior surgical changes. Unchanged pleural thickening/scarring of the left lung base with likely some mild underlying pleural fluid. There is no gross lobar consolidation identified. Mild degenerative changes of the spine. XR/XR chest 2V IMPRESSION: Stable postsurgical changes of the left hemithorax.
== END 2022-03-16 10:23 | disposition home or self-care (01) ==
LOC: HO.XRAY 10:22
PROVIDERS: PCP Internal Medicine; Visit Provider Hospitalist
DX: U07.1 COVID-19 (principal)
CPT/HCPCS: 71046; 87070; 87205

== ENCOUNTER → 2022-03-30 10:00 | Outpatient (BNVA) | payer MEDICARE, MEDICAID, SELFPAY | PROVIDERS: PCP Internal Medicine; Referring Provider Internal Medicine; Visit Provider Internal Medicine Cardiovascular Disease | DX: I50.30 Unspecified diastolic (congestive) heart failure (principal); R07.9 Chest pain, unspecified; I25.10 Atherosclerotic heart disease of native coronary artery without angina pectoris | CPT/HCPCS: 99212 ==

== ENCOUNTER 2022-04-06 09:20 | Outpatient (REF) | payer MEDICARE, MEDICAID, SELFPAY ==
--- NOTE | ~2022-04-06 | XR_ITS ---
EXAMINATION: XR CHEST CLINICAL INFORMATION: Dyspnea COMPARISON: Previous chest x-ray most recent March [address] September 2021 TECHNIQUE: 2 views of the chest were obtained. FINDINGS: There is stable postsurgical change with volume loss to the left hemithorax with shift of the central mediastinal structures to the left. The cardiac and mediastinal contours are stable. There is a small left pleural effusion and atelectasis or consolidation in the left lung adjacent to the left hilar region and at the left lung base. This appears similar to previous exams. The right lung is clear. There is no right pleural effusion. There is no pneumothorax. There are degenerative changes of the spine. There is a mild thoracolumbar scoliosis. XR/XR chest 2V IMPRESSION: Stable postsurgical change with volume loss to the left hemithorax and left pleural and parenchymal changes.
== END 2022-04-06 09:21 | disposition home or self-care (01) ==
LOC: HO.XRAY 09:20
PROVIDERS: PCP Internal Medicine; Visit Provider Hospitalist
DX: R91.8 Other nonspecific abnormal finding of lung field (principal); J96.10 Chronic respiratory failure, unspecified whether with hypoxia or hypercapnia; J70.1 Chronic and other pulmonary manifestations due to radiation; J44.1 Chronic obstructive pulmonary disease with (acute) exacerbation; G47.33 Obstructive sleep apnea (adult) (pediatric)
CPT/HCPCS: 71046; 94618; 99212

== ENCOUNTER → 2022-04-25 10:47 | Outpatient (BNVA) | payer MEDICARE, SELFPAY | PROVIDERS: PCP Internal Medicine; Visit Provider Hospitalist | DX: J44.9 Chronic obstructive pulmonary disease, unspecified (principal); R91.8 Other nonspecific abnormal finding of lung field; J96.10 Chronic respiratory failure, unspecified whether with hypoxia or hypercapnia | CPT/HCPCS: 94640; 99212 ==

== ENCOUNTER 2022-04-26 14:01 | Outpatient (REF) | payer MEDICARE, SELFPAY | END 2022-04-26 14:02 | disposition home or self-care (01) | LOC: HO.LNP 14:01 | PROVIDERS: Visit Provider Hospitalist | DX: R07.9 Chest pain, unspecified (principal) | CPT/HCPCS: 87070; 87205 ==

== ENCOUNTER → 2022-05-04 10:20 | Outpatient (BNVA) | payer MEDICARE, SELFPAY | PROVIDERS: PCP Internal Medicine; Visit Provider Hospitalist | DX: J44.1 Chronic obstructive pulmonary disease with (acute) exacerbation (principal); R91.8 Other nonspecific abnormal finding of lung field; J70.1 Chronic and other pulmonary manifestations due to radiation; J96.10 Chronic respiratory failure, unspecified whether with hypoxia or hypercapnia; D68.61 Antiphospholipid syndrome; G47.00 Insomnia, unspecified; I50.30 Unspecified diastolic (congestive) heart failure; R76.8 Other specified abnormal immunological findings in serum; J40 Bronchitis, not specified as acute or chronic | CPT/HCPCS: 99212 ==

== ENCOUNTER 2022-05-25 10:37 | Inpatient (IN) | payer MEDICARE, SELFPAY ==
[2022-05-25] VITALS (8 sets, daily range): BP systolic 95–131; BP diastolic 40–59; PULSE 65–91; RESP 16–30; TEMP 36.4–37.7; O2SAT 95–98; BMI 23.0
--- NOTE | ~2022-05-25 | CT_ITS ---
EXAMINATION: CT CHEST WITHOUT CONTRAST CLINICAL INFORMATION: Shortness of breath COMPARISON: CT of September 27, 2021 and chest x-ray of May 25, 2022 and April 06, 2022 TECHNIQUE: Multidetector volumetric CT imaging of the chest was done. Axial MIP volume rendering provided. Sagittal and coronal reformatted images were obtained. This CT examination was performed using dose optimization techniques as appropriate, variously including the following: *Automated exposure control *Adjustment of mA and/or kV according to patient size (this includes techniques or standardized protocols for targeted exams where dose is matched to indication/reason for exam; i.e. extremities or head) *Use of iterative reconstruction technique DLP: 198 mGy-cm FINDINGS: LUNGS: Central airways are patent. There is postsurgical change within the left lung loss of volume. Pleural parenchymal disease is present as well as a small partially loculated left pleural effusion. Within the right lower lobe there is a new oval density measuring approximately 2.0 x 1.6 cm in size and may represent a focus of pneumonia however mass lesion cannot be excluded. There are also multiple regions of ill-defined airspace disease in the right lower lobe inferior to this with the appearance of infectious/inflammatory process. MEDIASTINUM: Visualized thyroid gland appears unremarkable. Heart normal size. Aortic valve calcification present. Nonocclusive aortic arch calcification seen. No thoracic aortic aneurysm. Trace pericardial fluid. No mediastinal or hilar lymphadenopathy appreciated. CORONARY ARTERY CALCIFICATION: Coronary artery calcification is present. PLEURA: Postsurgical pleural-parenchymal changes seen within the left hemithorax along with a loculated small left effusion. AXILLA: No lymphadenopathy. UPPER ABDOMEN: Unremarkable. OSSEOUS STRUCTURES: No suspicious destructive bony lesions identified. Mild scoliosis convex right CT/CT chest wo IV con IMPRESSION: Stable left postsurgical change. New oval density within the right lower lobe with other regions of ill-defined airspace disease likely inflammatory in nature. Follow-up study to ensure resolution is recommended. Fleischner guidelines were followed.
--- NOTE | ~2022-05-25 | XR_ITS ---
EXAMINATION: XR CHEST CLINICAL INFORMATION: Shortness of breath. COMPARISON: 03/29/2022 chest radiographs. TECHNIQUE: Frontal view of the chest was obtained. FINDINGS: There is a persistent small left pleural effusion with superjacent hazy opacification and linear markings without significant change. Increased right basilar linear markings are seen. The upper lung moreno are clear. The heart and mediastinal structures are unremarkable. XR/XR chest 1V IMPRESSION: Small left pleural effusion with layering and probable atelectasis/infiltrates with similar appearance. Increased right basilar atelectasis/infiltrates.
[2022-05-25 11:07] LABS: MANUAL DIFF FLAG NO
[2022-05-25 11:08] LABS: Basophils Absolute Auto 0.1 X10*3/uL (0.0-0.2); Basophils Percent Auto 0.2 % (0-2); Eosinophils Percent Auto 0.1 % (0-4); Hematocrit 36.8 % (37.0-47.0); Imm Gran Abs Auto 0.37 X10*3/uL (0.00-0.03); Imm Gran Pct Auto 1.7 % (0.0-0.4); Lymphocytes Absolute Auto 0.7 X10*3/uL (1.2-4.9); Lymphocytes Percent Auto 3.2 % (20-40); Mean Corpuscular HGB Conc 32.6 g/dl (31.0-35.0); Mean Corpuscular Hemoglobin 31.9 pg (27.0-33.0); Mean Corpuscular Volume 97.9 fL (80.0-98.0); Mean Platelet Volume 10.3 fL (9.4-12.3); Monocytes Absolute Auto 1.4 X10*3/uL (0.1-1.2); Monocytes Percent Auto 6.5 % (2-11); Neutrophils Absolute Auto 19.5 x10*3/uL (2.0-8.3); Neutrophils Percent Auto 88.3 % (45-73); Platelet Count 241 X10*3/uL (160-400); Red Blood Count 3.76 X10*6/uL (4.20-5.50); Red Cell Distribution Width 13.4 % (11.0-16.0); White Blood Count 22.1 X10*3/uL (4.8-10.8)
[2022-05-25 11:23] LABS: COVID-19 Test Negative (Negative); IDNOW Serial# 16C4AD1C
[2022-05-25 11:24] LABS: IDNOW Serial# BCCEAD1C; Influenza A Negative (Negative); Influenza B2 Negative (Negative)
[2022-05-25 11:33] LABS: Anion Gap 14 (12-20); Blood Urea Nitrogen 16 mg/dL (9-16); Calcium 9.6 mg/dL (8.4-10.2); Carbon Dioxide 29 mmol/L (22-29); Chloride 93 mmol/L (96-108); Creatinine Clr Calc Pharmacy 32.5; Estimated Glomerular Filt Rate 45; Glucose Random 113 mg/dL (60-115); Sodium 132 mmol/L (135-145)
--- NOTE | 2022-05-25 11:47 | PC.NURSE ---
pt is a/o x 4 c/o sob with cough. lungs - slight exp wheezing to left lower lobe. pt is on 2l/mvia n/c at this time. heart sound regular. abd soft and non-tender, bx s + x 4 quads. pt aware of plan of care.
--- NOTE | 2022-05-25 12:06 | ED.URI ---
HPI - URI/Sore Throat General Chief Complaint: Upper Respiratory Symptoms <Marleen Loya NP - Last Filed: 05/25/22 17:23> Stated Complaint: sent from . diff breathing, coughing <Marleen Loya NP - Last Filed: 05/25/22 17:23> Time Seen by Provider: 05/25/22 11:26 <Marleen Loya NP - Last Filed: 05/25/22 17:23> Source: patient <Marleen Loya NP - Last Filed: 05/25/22 17:23> Mode of arrival: ambulatory <Marleen Loya NP - Last Filed: 05/25/22 17:23> Limitations: no limitations <Marleen Loya NP - Last Filed: 05/25/22 17:23> History of Present Illness HPI Narrative: 77 yo F with a complex PMH including CAD, COPD, KANDY with Bipap, PE on coumadin, hypogammaglobulinemia, pulmonary HTN, heart failure with preserved EF, s/p covid infection diagnosed 03/06/22, and chronic cough since covid diagnosis presents to the ED on recommendation from her Dr due to worsening cough, SOB with exertion, and weakness. She states that she has an oxygen tank at home for intermittent shortness of breath and that she has had worsening SOB x 4 days requiring increased use of home O2. She endorses a congested cough with yellow to brown sputum production. Pt reports pain on inspiration and cough at 5-6 ICS. Initially afebrile on arriving in ED, however; low grade temp of 99.8 noted on repeat. She denies any chest pain, fevers at home, chills, abdominal pain, nausea or vomiting. <Marleen Loya NP - Last Filed: 05/25/22 17:23> 77 yo F with a complex PMH including CAD, COPD, KANDY with Bipap, PE on coumadin, hypogammaglobulinemia, pulmonary HTN, heart failure with preserved EF, s/p covid infection diagnosed 03/06/22, and chronic cough since covid diagnosis presents to the ED on recommendation from her Dr due to worsening cough, SOB with exertion, and weakness. She states that she has an oxygen tank at home for intermittent shortness of breath and that she has had worsening SOB x 4 days requiring increased use of home O2. She endorses a congested cough with yellow to brown sputum production. Pt reports pain on inspiration and cough at 5-6 ICS. Initially afebrile on arriving in ED, however; low grade temp of 99.8 noted on repeat. She denies any chest pain, fevers at home, chills, abdominal pain, nausea or vomiting. <EMELIA Bai - Last Filed: 05/25/22 17:15> MD elicited complaint: cough <Marleen Loya NP - Last Filed: 05/25/22 17:23> Pertinent past history: COPD and asthma <Marleen Loya NP - Last Filed: 05/25/22 17:23> Onset (ago): day(s) <Marleen Loya NP - Last Filed: 05/25/22 17:23> Consistency: constant <Marleen Loya NP - Last Filed: 05/25/22 17:23> Severity: moderate <Marleen Loya NP - Last Filed: 05/25/22 17:23> Description of mucous: yellow and other (brown) <Marleen Loya NP - Last Filed: 05/25/22 17:23> Able to tolerate fluids by mouth: Yes <Marleen Loya NP - Last Filed: 05/25/22 17:23> Exacerbating factors: exertion, speaking and deep breaths <Marleen Loya NP - Last Filed: 05/25/22 17:23> Relieving factors: nothing <Marleen Loya NP - Last Filed: 05/25/22 17:23> Context: recent hospitalization <Marleen Loya NP - Last Filed: 05/25/22 17:23> Associated symptoms: denies other symptoms <Marleen Loya NP - Last Filed: 05/25/22 17:23> Treatments prior to arrival: antibiotics <Marleen Loya NP - Last Filed: 05/25/22 17:23> Related Data Home Medications: Home Medications Medication Instructions Recorded Confirmed warfarin 1 mg tablet 1.5 mg PO DAILY 10/28/20 11/16/22 diazepam 5 mg tablet 5 mg PO BID PRN Anxiety and Sleep 11/26/20 05/25/22 meclizine 25 mg tablet 25 mg PO DAILY PRN Dizziness 11/26/20 05/25/22 metoprolol succinate 25 mg 25 mg PO BID 09/29/21 05/25/22 tablet,extended release 24 hr levothyroxine 25 mcg tablet 25 mcg PO MOTUWETHFR@0600 11/17/21 05/25/22 furosemide 20 mg tablet 20 mg PO DAILY swelling 03/30/22 05/25/22 levocetirizine 5 mg tablet 5 mg PO BEDTIME allergies 04/25/22 05/25/22 ferrous gluconate 324 mg (38 mg 1 tab PO QAM 05/25/22 05/25/22 iron) tablet levothyroxine 25 mcg tablet 50 mcg PO SUSA@0600 05/25/22 05/25/22 (Synthroid) prednisone 10 mg tablet 10 mg PO DAILY 05/25/22 05/25/22 rosuvastatin 10 mg tablet 10 mg PO MOWEFR@2100 05/25/22 05/25/22 Previous Rx's Medication Instructions Recorded albuterol sulfate 2.5 mg/3 mL 2.5 mg (3 mL) inhalation QID 30 08/10/20 (0.083 %) solution for nebulization days #360 mL albuterol sulfate 90 mcg/actuation 2 puff PO Q6H PRN shortness of 06/14/21 aerosol inhaler breath or wheezing 90 days #3 ea montelukast 10 mg tablet 10 mg PO DAILY #90 tabs 06/24/21 trazodone 50 mg tablet 100 mg PO BEDTIME #180 tabs 06/24/21 Advair HFA 230 mcg-21 2 puff inhalation BID #36 grams 12/23/21 mcg/actuation aerosol inhaler (fluticasone propion-salmeterol) doxycycline monohydrate 100 mg 100 mg PO BID 10 days #20 tabs 05/23/22 tablet <Marleen Loya NP - Last Filed: 05/25/22 17:23> Allergies/Adverse Reactions: Allergies Allergy/AdvReac Type Severity Reaction Status Date / Time avocado [AVOCADO] Allergy Mild ITCHY Verified 05/04/22 10:38 THROAT, RASH azithromycin [AZITHROMYCIN] Allergy Mild ITCHY Verified 05/04/22 10:38 THROAT, RASH barium iodide [BARIUM IODIDE] Allergy Mild ITCHY Verified 05/04/22 10:38 THROAT, RASH barium sulfate Allergy Mild Itch Verified 05/04/22 10:38 bee pollen [BEE STINGS] Allergy Mild ITCHY Verified 05/04/22 10:38 THROAT, RASH ciprofloxacin [From CIPRO] Allergy Mild ITCHY Verified 05/04/22 10:38 THROAT, RASH clarithromycin [From BIAXIN] Allergy Mild ITCHY Verified 05/04/22 10:38 THROAT, RASH diatrizoate meglumine Allergy Mild ITCHY Verified 05/04/22 10:38 [From GASTROGRAFIN] THROAT, RASH diatrizoate sodium Allergy Mild ITCHY Verified 05/04/22 10:38 [From GASTROGRAFIN] THROAT, RASH diclofenac [From VOLTAREN] Allergy Mild ITCHY Verified 05/04/22 10:38 THROAT, RASH erythromycin base Allergy Mild ITCHY Verified 05/04/22 10:38 [ERYTHROMYCIN BASE] THROAT, RASH gentamicin [GENTAMICIN] Allergy Mild ITCHY Verified 05/04/22 10:38 THROAT, RASH Iodinated Contrast Media Allergy Mild ITCHY Verified 05/04/22 10:38 [IVP DYE] THROAT, RASH levofloxacin [From LEVAQUIN] Allergy Mild ITCHY Verified 05/04/22 10:38 THROAT, RASH metronidazole [From FLAGYL] Allergy Mild ITCHY Verified 05/04/22 10:38 THROAT, RASH moxifloxacin [From AVELOX] Allergy Mild ITCHY Verified 05/04/22 10:38 THROAT, RASH Penicillins [PENICILLINS] Allergy Mild ITCHY Verified 05/04/22 10:38 THROAT, RASH shrimp [SHRIMP] Allergy Mild ITCHY Verified 05/04/22 10:38 THROAT, RASH Sulfa (Sulfonamide Allergy Mild ITCHY Verified 05/04/22 10:38 Antibiotics) THROAT, [SULFA (SULFONAMIDE RASH ANTIBIOTICS)] vancomycin [VANCOMYCIN] Allergy Mild ITCHY Verified 05/04/22 10:38 THROAT, RASH <Marleen Loya NP - Last Filed: 05/25/22 17:23> Review of Systems Review of Systems: Yes all other systems are reviewed and are negative <Marleen Loya NP - Last Filed: 05/25/22 17:23> Constitutional: Constitutional: Reports fatigue and Reports lethargy <Marleen Loya, ACCOUNT DEVELOPMENT REPRESENTATIVE - Last Filed: 05/25/22 17:23> Eyes: Eyes: Reports no additional eye complaints and Denies change in vision <Marleenbola Loya, ACCOUNT DEVELOPMENT REPRESENTATIVE - Last Filed: 05/25/22 17:23> ENT: Reports system reviewed and no additional complaints, except as documented, Reports Normal hearing present and Reports dry mouth <Marleenbola Loya, ACCOUNT DEVELOPMENT REPRESENTATIVE - Last Filed: 05/25/22 17:23> Cardiovascular: Cardiovascular: Reports no additional cardiovascular complaints, Denies chest pain, Reports dyspnea and Reports dyspnea on exertion <Marleenbola Loya, ACCOUNT DEVELOPMENT REPRESENTATIVE - Last Filed: 05/25/22 17:23> Respiratory: Respiratory: Reports no additional respiratory complaints, Reports dyspnea and Reports dyspnea on exertion <Marleenirene Loya, ACCOUNT DEVELOPMENT REPRESENTATIVE - Last Filed: 05/25/22 17:23> Neurologic: Reports Normal hearing present <Marleenirene Loya, ACCOUNT DEVELOPMENT REPRESENTATIVE - Last Filed: 05/25/22 17:23> Endocrine: Endocrine: Reports fatigue <Marleen Loya, ACCOUNT DEVELOPMENT REPRESENTATIVE - Last Filed: 05/25/22 17:23> [facility] Past Medical History Medical History: Medical History (HFpEF) heart failure with preserved ejection fraction CLARA positive Anti-phospholipid antibody syndrome Antiphospholipid antibody syndrome Arterial insufficiency of lower extremity Blood D-dimer assay positive Chest pain Chronic respiratory failure Complex regional pain syndrome i of right lower limb COPD (chronic obstructive pulmonary disease) COVID-19 Diverticulitis Dysuria Hypogammaglobulinemia Insomnia Lung cancer Mid sternal chest pain Mycobacterial disease NSTEMI (non-ST elevated myocardial infarction) KANDY treated with BiPAP Pericardial effusion Pleural effusion Pneumonitis Post herpetic neuralgia Pulmonary emboli Pulmonary hypertension Pulmonary nodules Radiation fibrosis of lung Subarachnoid bleed Tracheobronchitis URI (upper respiratory infection) <Marleen Loya, ACCOUNT DEVELOPMENT REPRESENTATIVE - Last Filed: 05/25/22 17:23> Surgical History: Surgical History H/O: hysterectomy History of cardiac cath Hx of tonsillectomy <Marleen Loya NP - Last Filed: 05/25/22 17:23> Family History Family History: Family History Sister No problems noted. Mother Cardiovascular disease Daughter Tachycardia Other KANDY (obstructive sleep apnea) <Marleen Loya NP - Last Filed: 05/25/22 17:23> Social History Social History: Social History Household Members: None Alcohol intake: never Patient Tobacco Use Status: Never used Tobacco Smoked in Last 30 Days: No Second Hand Smoke Exposure: No Use of substances other than those prescribed or required for medical reasons: No Advance Directives: No <Marleen Loya NP - Last Filed: 05/25/22 17:23> Physical Exam Vital Signs: Vital Signs: Last Vital Signs Temp 98.6 F 05/25/22 15:53 Pulse 88 05/25/22 15:53 Resp 20 05/25/22 15:53 BP 118/49 L 05/25/22 15:53 Pulse Ox 98 05/25/22 15:53 O2 Del Method 05/25/22 15:53 O2 Flow Rate 2 05/25/22 12:12 BMI result Body Mass Index 23.0 <Marleen Loya NP - Last Filed: 05/25/22 17:23> Vital Signs: Last Vital Signs Temp 98.6 F 05/25/22 15:53 Pulse 88 05/25/22 15:53 Resp 20 05/25/22 15:53 BP 118/49 L 05/25/22 15:53 Pulse Ox 98 05/25/22 15:53 O2 Del Method 05/25/22 15:53 O2 Flow Rate 2 05/25/22 12:12 BMI result Body Mass Index 23.0 <EMELIA Bai - Last Filed: 05/25/22 17:15> Neuro: Cranial nerves: Yes Normal hearing present <Marleen Loya NP - Last Filed: 05/25/22 17:23> Medications Administered Generic Name Dose Route Start Last Admin Trade Name Freq PRN Reason Stop Dose Admin Albuterol/Ipratropium 3 ml 05/25/22 16:00 05/25/22 16:24 Albuterol/Iprat 2.5/0.5mg 3 Ml Ampul.Neb INHALE Not Given RQ4H WHILE AWAKE MATHEW Discontinued Medications Generic Name Dose Route Start Last Admin Trade Name Freq PRN Reason Stop Dose Admin Ceftriaxone Sodium 1 gm/ 50 mls @ 100 mls/hr 05/25/22 14:12 05/25/22 16:30 Sodium Chloride IV 05/25/22 14:41 100 mls/hr ONCE ONE Infusion Methylprednisolone Sodium Succinate 60 mg 05/25/22 14:12 05/25/22 16:03 Methylprednisolone Sod Succ 125 Mg/2 Ml Vial IVPUSH 05/25/22 14:13 60 mg ONCE ONE Administration <Marleen Loya NP - Last Filed: 05/25/22 17:23> Medications Administered Generic Name Dose Route Start Last Admin Trade Name Freq PRN Reason Stop Dose Admin Albuterol/Ipratropium 3 ml 05/25/22 16:00 05/25/22 16:24 Albuterol/Iprat 2.5/0.5mg 3 Ml Ampul.Neb INHALE Not Given RQ4H WHILE AWAKE MATHEW Discontinued Medications Generic Name Dose Route Start Last Admin Trade Name Freq PRN Reason Stop Dose Admin Ceftriaxone Sodium 1 gm/ 50 mls @ 100 mls/hr 05/25/22 14:12 05/25/22 16:30 Sodium Chloride IV 05/25/22 14:41 100 mls/hr ONCE ONE Infusion Methylprednisolone Sodium Succinate 60 mg 05/25/22 14:12 05/25/22 16:03 Methylprednisolone Sod Succ 125 Mg/2 Ml Vial IVPUSH 05/25/22 14:13 60 mg ONCE ONE Administration <EMELIA Bai - Last Filed: 05/25/22 17:15> MDM - URI/Sore Throat MDM Narrative Medical decision making narrative: 77 yo F with a complex PMH presents to the ED on recommendation from her PCP due to worsening congested cough with yellow/brown sputum, SOB with exertion x last 4 days, weakness, and pain on inspiration and cough. Pt initially afebrile on arriving in ED, however; low grade temp of 99.8 noted on repeat. Blood cultures and lactic acid ordered. Pt's blood work showed NA 132, BNP 232, WBC 22, and subtherapeutic INR of 1.5. Pt's chest xray showed bilateral infiltrates and left sided pleural effusion. Diagnostics consistent with bilateral pneumonia. Clinical presentation not consistent with sepsis. Spoke with hospitalist team, who agreed to admission for further evaluation and treatment. I explained my physical exam findings as well as all test results to the patient with no unanswered question. Pt verbalized understanding and agreement with admission. <Marleen Loya NP - Last Filed: 05/25/22 17:23> 77 yo F with a complex PMH presents to the ED on recommendation from her PCP due to worsening congested cough with yellow/brown sputum, SOB with exertion x last 4 days, weakness, and pain on inspiration and cough. Pt initially afebrile on arriving in ED, however; low grade temp of 99.8 noted on repeat. Blood cultures and lactic acid ordered. I explained my physical exam findings as well as all test results to the patient with no unanswered question. Diagnostics consistent with bilateral pneumonia. Clinical presentation not consistent with sepsis. Pt with bilateral pneumonia. Spoke with childcare center administrator and plan to admit pt for further evaluation and treatment. <EMELIA Bai - Last Filed: 05/25/22 17:15> Medical Records Attestation: I reviewed the patient's medical records. <Marleen Loya NP - Last Filed: 05/25/22 17:23> Lab Data Attestation: I reviewed the patient's lab results. <Marleen Loya NP - Last Filed: 05/25/22 17:23> Result diagrams: : 05/25/22 10:56 05/25/22 10:56 <Marleen Loya NP - Last Filed: 05/25/22 17:23> Labs: Lab Results 05/25/22 05/25/22 05/25/22 Range/Units 10:56 10:56 10:56 WBC 22.1 H (4.8-10.8) X10*3/uL RBC 3.76 L (4.20-5.50) X10*6/uL Hgb 12.0 (12.0-16.0) g/dl Hct 36.8 L (37.0-47.0) % MCV 97.9 (80.0-98.0) fL MCH 31.9 (27.0-33.0) pg MCHC 32.6 (31.0-35.0) g/dl RDW 13.4 (11.0-16.0) % Plt Count 241 (160-400) X10*3/uL MPV 10.3 (9.4-12.3) fL Immature Gran % (Auto) 1.7 H (0.0-0.4) % Neut % (Auto) 88.3 H (45-73) % Lymph % (Auto) 3.2 L (20-40) % [place] % (Auto) 6.5 (2-11) % Eos % (Auto) 0.1 (0-4) % Baso % (Auto) 0.2 (0-2) % Lymph # (Auto) 0.7 L (1.2-4.9) X10*3/uL [place] # (Auto) 1.4 H (0.1-1.2) X10*3/uL Eos # (Auto) 0.0 (0.0-0.4) X10*3/uL Baso # (Auto) 0.1 (0.0-0.2) X10*3/uL Abs Immat Gran (auto) 0.37 H (0.00-0.03) X10*3/uL Absolute Neuts (auto) 19.5 H (2.0-8.3) x10*3/uL Absolute Nucleated RBC 0.000 (0.0-0.012) X10*3/uL Nucleated RBC % (auto) 0.0 (0.0-0.2) /100WBC PT (10.0-13.1) SEC INR (0.9-1.1) Sodium 132 L (135-145) mmol/L Potassium 4.0 (3.3-5.1) mmol/L Chloride 93 L (96-108) mmol/L Carbon Dioxide 29 (22-29) mmol/L Anion Gap 14 (12-20) BUN 16 (9-16) mg/dL Creatinine 1.16 (0.5-1.4) mg/dL Estim Creat Clear Calc 32.5 Estimated GFR 45 Random Glucose 113 (60-115) mg/dL Lactic Acid (0.5-2.0) mmol/L Calcium 9.6 (8.4-10.2) mg/dL Total Bilirubin 1.1 H (0.0-1.0) mg/dL Direct Bilirubin 0.4 (0.0-0.5) mg/dL AST 17 (5-31) U/L ALT 16 (0-31) U/L Alkaline Phosphatase 62 (39-117) U/L Troponin I High Sens (<3.5-17.0) ng/L B-Natriuretic Peptide (<100) pg/mL Total Protein 6.2 L (6.5-8.0) g/dL Albumin 3.4 L (3.5-5.0) g/dL Respiratory Panel [place] Adenovirus (Rapid PCR) (Not Detect.) B.pert (TEM-PCR) (Not Detect.) B.parapertussis DNA PCR (Not Detect.) C. pneumoniae DNA (PCR) (Not Detect.) Coronavirus OC43 (PCR) (Not Detect.) Coronavirus HKU1 (PCR) (Not Detect.) Coronavirus 229E (PCR) (Not Detect.) COVID-19 (ELIZABETH) (Negative) COVID-19 Clin Com Coronavirus NL63 (PCR) (Not Detect.) Human Metapneumovir PCR (Not Detect.) Influenza Type A (GAYLE) Negative (Negative) Influenza A (RT-PCR) (Not Detect.) Influenza Type B (GAYLE) Negative (Negative) Influenza B (RT-PCR) (Not Detect.) Influenza A & B Note See Note M. pneumoniae (PCR) (Not Detect.) Parainfluenza 1 (PCR) (Not Detect.) Parainfluenza 2 (PCR) (Not Detect.) Parainfluenza 3 (PCR) (Not Detect.) Parainfluenza 4 (PCR) (Not Detect.) RSV (PCR) (Not Detect.) Entero/Rhino (PCR) (Not Detect.) SARS-CoV-2 RNA (RT-PCR) (Not Detect.) 05/25/22 05/25/22 05/25/22 Range/Units 10:56 10:56 10:56 WBC (4.8-10.8) X10*3/uL RBC (4.20-5.50) X10*6/uL Hgb (12.0-16.0) g/dl Hct (37.0-47.0) % MCV (80.0-98.0) fL MCH (27.0-33.0) pg MCHC (31.0-35.0) g/dl RDW (11.0-16.0) % Plt Count (160-400) X10*3/uL MPV (9.4-12.3) fL Immature Gran % (Auto) (0.0-0.4) % Neut % (Auto) (45-73) % Lymph % (Auto) (20-40) % [place] % (Auto) (2-11) % Eos % (Auto) (0-4) % Baso % (Auto) (0-2) % Lymph # (Auto) (1.2-4.9) X10*3/uL [place] # (Auto) (0.1-1.2) X10*3/uL Eos # (Auto) (0.0-0.4) X10*3/uL Baso # (Auto) (0.0-0.2) X10*3/uL Abs Immat Gran (auto) (0.00-0.03) X10*3/uL Absolute Neuts (auto) (2.0-8.3) x10*3/uL Absolute Nucleated RBC (0.0-0.012) X10*3/uL Nucleated RBC % (auto) (0.0-0.2) /100WBC PT (10.0-13.1) SEC INR (0.9-1.1) Sodium (135-145) mmol/L Potassium (3.3-5.1) mmol/L Chloride (96-108) mmol/L Carbon Dioxide (22-29) mmol/L Anion Gap (12-20) BUN (9-16) mg/dL Creatinine (0.5-1.4) mg/dL Estim Creat Clear Calc Estimated GFR Random Glucose (60-115) mg/dL Lactic Acid (0.5-2.0) mmol/L Calcium (8.4-10.2) mg/dL Total Bilirubin (0.0-1.0) mg/dL Direct Bilirubin (0.0-0.5) mg/dL AST (5-31) U/L ALT (0-31) U/L Alkaline Phosphatase (39-117) U/L Troponin I High Sens 16.6 (<3.5-17.0) ng/L B-Natriuretic Peptide 232 H (<100) pg/mL Total Protein (6.5-8.0) g/dL Albumin (3.5-5.0) g/dL Respiratory Panel [place] Adenovirus (Rapid PCR) (Not Detect.) B.pert (TEM-PCR) (Not Detect.) B.parapertussis DNA PCR (Not Detect.) C. pneumoniae DNA (PCR) (Not Detect.) Coronavirus OC43 (PCR) (Not Detect.) Coronavirus HKU1 (PCR) (Not Detect.) Coronavirus 229E (PCR) (Not Detect.) COVID-19 (ELIZABETH) Negative (Negative) COVID-19 Clin Com See Note Coronavirus NL63 (PCR) (Not Detect.) Human Metapneumovir PCR (Not Detect.) Influenza Type A (GAYLE) (Negative) Influenza A (RT-PCR) (Not Detect.) Influenza Type B (GAYLE) (Negative) Influenza B (RT-PCR) (Not Detect.) Influenza A & B Note M. pneumoniae (PCR) (Not Detect.) Parainfluenza 1 (PCR) (Not Detect.) Parainfluenza 2 (PCR) (Not Detect.) Parainfluenza 3 (PCR) (Not Detect.) Parainfluenza 4 (PCR) (Not Detect.) RSV (PCR) (Not Detect.) Entero/Rhino (PCR) (Not Detect.) SARS-CoV-2 RNA (RT-PCR) (Not Detect.) 05/25/22 05/25/22 05/25/22 Range/Units 14:30 14:30 14:31 WBC (4.8-10.8) X10*3/uL RBC (4.20-5.50) X10*6/uL Hgb (12.0-16.0) g/dl Hct (37.0-47.0) % MCV (80.0-98.0) fL MCH (27.0-33.0) pg MCHC (31.0-35.0) g/dl RDW (11.0-16.0) % Plt Count (160-400) X10*3/uL MPV (9.4-12.3) fL Immature Gran % (Auto) (0.0-0.4) % Neut % (Auto) (45-73) % Lymph % (Auto) (20-40) % [place] % (Auto) (2-11) % Eos % (Auto) (0-4) % Baso % (Auto) (0-2) % Lymph # (Auto) (1.2-4.9) X10*3/uL [place] # (Auto) (0.1-1.2) X10*3/uL Eos # (Auto) (0.0-0.4) X10*3/uL Baso # (Auto) (0.0-0.2) X10*3/uL Abs Immat Gran (auto) (0.00-0.03) X10*3/uL Absolute Neuts (auto) (2.0-8.3) x10*3/uL Absolute Nucleated RBC (0.0-0.012) X10*3/uL Nucleated RBC % (auto) (0.0-0.2) /100WBC PT 17.1 H (10.0-13.1) SEC INR 1.5 H (0.9-1.1) Sodium (135-145) mmol/L Potassium (3.3-5.1) mmol/L Chloride (96-108) mmol/L Carbon Dioxide (22-29) mmol/L Anion Gap (12-20) BUN (9-16) mg/dL Creatinine (0.5-1.4) mg/dL Estim Creat Clear Calc Estimated GFR Random Glucose (60-115) mg/dL Lactic Acid 1.1 (0.5-2.0) mmol/L Calcium (8.4-10.2) mg/dL Total Bilirubin (0.0-1.0) mg/dL Direct Bilirubin (0.0-0.5) mg/dL AST (5-31) U/L ALT (0-31) U/L Alkaline Phosphatase (39-117) U/L Troponin I High Sens (<3.5-17.0) ng/L B-Natriuretic Peptide (<100) pg/mL Total Protein (6.5-8.0) g/dL Albumin (3.5-5.0) g/dL Respiratory Panel [place] See Note Adenovirus (Rapid PCR) Not Detected (Not Detect.) B.pert (TEM-PCR) Not Detected (Not Detect.) B.parapertussis DNA PCR Not Detected (Not Detect.) C. pneumoniae DNA (PCR) Not Detected (Not Detect.) Coronavirus OC43 (PCR) Not Detected (Not Detect.) Coronavirus HKU1 (PCR) Not Detected (Not Detect.) Coronavirus 229E (PCR) Not Detected (Not Detect.) COVID-19 (EL[facility]ABETH) (Negative) COVID-19 Clin Com Coronavirus NL63 (PCR) Not Detected (Not Detect.) Human Metapneumovir PCR Not Detected (Not Detect.) Influenza Type A (GAYLE) (Negative) Influenza A (RT-PCR) Detected A (Not Detect.) Influenza Type B (GAYLE) (Negative) Influenza B (RT-PCR) Not Detected (Not Detect.) Influenza A & B Note M. pneumoniae (PCR) Not Detected (Not Detect.) Parainfluenza 1 (PCR) Not Detected (Not Detect.) Parainfluenza 2 (PCR) Not Detected (Not Detect.) Parainfluenza 3 (PCR) Not Detected (Not Detect.) Parainfluenza 4 (PCR) Not Detected (Not Detect.) RSV (PCR) Not Detected (Not Detect.) Entero/Rhino (PCR) Not Detected (Not Detect.) SARS-CoV-2 RNA (RT-PCR) Not Detected (Not Detect.) <Marleen Loya NP - Last Filed: 05/25/22 17:23> Lab Results 05/25/22 05/25/22 05/25/22 Range/Units 10:56 10:56 10:56 WBC 22.1 H (4.8-10.8) X10*3/uL RBC 3.76 L (4.20-5.50) X10*6/uL Hgb 12.0 (12.0-16.0) g/dl Hct 36.8 L (37.0-47.0) % MCV 97.9 (80.0-98.0) fL MCH 31.9 (27.0-33.0) pg MCHC 32.6 (31.0-35.0) g/dl RDW 13.4 (11.0-16.0) % Plt Count 241 (160-400) X10*3/uL MPV 10.3 (9.4-12.3) fL Immature Gran % (Auto) 1.7 H (0.0-0.4) % Neut % (Auto) 88.3 H (45-73) % Lymph % (Auto) 3.2 L (20-40) % [place] % (Auto) 6.5 (2-11) % Eos % (Auto) 0.1 (0-4) % Baso % (Auto) 0.2 (0-2) % Lymph # (Auto) 0.7 L (1.2-4.9) X10*3/uL [place] # (Auto) 1.4 H (0.1-1.2) X10*3/uL Eos # (Auto) 0.0 (0.0-0.4) X10*3/uL Baso # (Auto) 0.1 (0.0-0.2) X10*3/uL Abs Immat Gran (auto) 0.37 H (0.00-0.03) X10*3/uL Absolute Neuts (auto) 19.5 H (2.0-8.3) x10*3/uL Absolute Nucleated RBC 0.000 (0.0-0.012) X10*3/uL Nucleated RBC % (auto) 0.0 (0.0-0.2) /100WBC PT (10.0-13.1) SEC INR (0.9-1.1) Sodium 132 L (135-145) mmol/L Potassium 4.0 (3.3-5.1) mmol/L Chloride 93 L (96-108) mmol/L Carbon Dioxide 29 (22-29) mmol/L Anion Gap 14 (12-20) BUN 16 (9-16) mg/dL Creatinine 1.16 (0.5-1.4) mg/dL Estim Creat Clear Calc 32.5 Estimated GFR 45 Random Glucose 113 (60-115) mg/dL Lactic Acid (0.5-2.0) mmol/L Calcium 9.6 (8.4-10.2) mg/dL Total Bilirubin 1.1 H (0.0-1.0) mg/dL Direct Bilirubin 0.4 (0.0-0.5) mg/dL AST 17 (5-31) U/L ALT 16 (0-31) U/L Alkaline Phosphatase 62 (39-117) U/L Troponin I High Sens (<3.5-17.0) ng/L B-Natriuretic Peptide (<100) pg/mL Total Protein 6.2 L (6.5-8.0) g/dL Albumin 3.4 L (3.5-5.0) g/dL Respiratory Panel [place] Adenovirus (Rapid PCR) (Not Detect.) B.pert (TEM-PCR) (Not Detect.) B.parapertussis DNA PCR (Not Detect.) C. pneumoniae DNA (PCR) (Not Detect.) Coronavirus OC43 (PCR) (Not Detect.) Coronavirus HKU1 (PCR) (Not Detect.) Coronavirus 229E (PCR) (Not Detect.) COVID-19 (ELIZABETH) (Negative) COVID-19 Clin Com Coronavirus NL63 (PCR) (Not Detect.) Human Metapneumovir PCR (Not Detect.) Influenza Type A (GAYLE) Negative (Negative) Influenza A (RT-PCR) (Not Detect.) Influenza Type B (GAYLE) Negative (Negative) Influenza B (RT-PCR) (Not Detect.) Influenza A & B Note See Note M. pneumoniae (PCR) (Not Detect.) Parainfluenza 1 (PCR) (Not Detect.) Parainfluenza 2 (PCR) (Not Detect.) Parainfluenza 3 (PCR) (Not Detect.) Parainfluenza 4 (PCR) (Not Detect.) RSV (PCR) (Not Detect.) Entero/Rhino (PCR) (Not Detect.) SARS-CoV-2 RNA (RT-PCR) (Not Detect.) 05/25/22 05/25/22 05/25/22 Range/Units 10:56 10:56 10:56 WBC (4.8-10.8) X10*3/uL RBC (4.20-5.50) X10*6/uL Hgb (12.0-16.0) g/dl Hct (37.0-47.0) % MCV (80.0-98.0) fL MCH (27.0-33.0) pg MCHC (31.0-35.0) g/dl RDW (11.0-16.0) % Plt Count (160-400) X10*3/uL MPV (9.4-12.3) fL Immature Gran % (Auto) (0.0-0.4) % Neut % (Auto) (45-73) % Lymph % (Auto) (20-40) % [place] % (Auto) (2-11) % Eos % (Auto) (0-4) % Baso % (Auto) (0-2) % Lymph # (Auto) (1.2-4.9) X10*3/uL [place] # (Auto) (0.1-1.2) X10*3/uL Eos # (Auto) (0.0-0.4) X10*3/uL Baso # (Auto) (0.0-0.2) X10*3/uL Abs Immat Gran (auto) (0.00-0.03) X10*3/uL Absolute Neuts (auto) (2.0-8.3) x10*3/uL Absolute Nucleated RBC (0.0-0.012) X10*3/uL Nucleated RBC % (auto) (0.0-0.2) /100WBC PT (10.0-13.1) SEC INR (0.9-1.1) Sodium (135-145) mmol/L Potassium (3.3-5.1) mmol/L Chloride (96-108) mmol/L Carbon Dioxide (22-29) mmol/L Anion Gap (12-20) BUN (9-16) mg/dL Creatinine (0.5-1.4) mg/dL Estim Creat Clear Calc Estimated GFR Random Glucose (60-115) mg/dL Lactic Acid (0.5-2.0) mmol/L Calcium (8.4-10.2) mg/dL Total Bilirubin (0.0-1.0) mg/dL Direct Bilirubin (0.0-0.5) mg/dL AST (5-31) U/L ALT (0-31) U/L Alkaline Phosphatase (39-117) U/L Troponin I High Sens 16.6 (<3.5-17.0) ng/L B-Natriuretic Peptide 232 H (<100) pg/mL Total Protein (6.5-8.0) g/dL Albumin (3.5-5.0) g/dL Respiratory Panel [place] Adenovirus (Rapid PCR) (Not Detect.) B.pert (TEM-PCR) (Not Detect.) B.parapertussis DNA PCR (Not Detect.) C. pneumoniae DNA (PCR) (Not Detect.) Coronavirus OC43 (PCR) (Not Detect.) Coronavirus HKU1 (PCR) (Not Detect.) Coronavirus 229E (PCR) (Not Detect.) COVID-19 (ELIZABETH) Negative (Negative) COVID-19 Clin Com See Note Coronavirus NL63 (PCR) (Not Detect.) Human Metapneumovir PCR (Not Detect.) Influenza Type A (GAYLE) (Negative) Influenza A (RT-PCR) (Not Detect.) Influenza Type B (GAYLE) (Negative) Influenza B (RT-PCR) (Not Detect.) Influenza A & B Note M. pneumoniae (PCR) (Not Detect.) Parainfluenza 1 (PCR) (Not Detect.) Parainfluenza 2 (PCR) (Not Detect.) Parainfluenza 3 (PCR) (Not Detect.) Parainfluenza 4 (PCR) (Not Detect.) RSV (PCR) (Not Detect.) Entero/Rhino (PCR) (Not Detect.) SARS-CoV-2 RNA (RT-PCR) (Not Detect.) 05/25/22 05/25/22 05/25/22 Range/Units 14:30 14:30 14:31 WBC (4.8-10.8) X10*3/uL RBC (4.20-5.50) X10*6/uL Hgb (12.0-16.0) g/dl Hct (37.0-47.0) % MCV (80.0-98.0) fL MCH (27.0-33.0) pg MCHC (31.0-35.0) g/dl RDW (11.0-16.0) % Plt Count (160-400) X10*3/uL MPV (9.4-12.3) fL Immature Gran % (Auto) (0.0-0.4) % Neut % (Auto) (45-73) % Lymph % (Auto) (20-40) % [place] % (Auto) (2-11) % Eos % (Auto) (0-4) % Baso % (Auto) (0-2) % Lymph # (Auto) (1.2-4.9) X10*3/uL [place] # (Auto) (0.1-1.2) X10*3/uL Eos # (Auto) (0.0-0.4) X10*3/uL Baso # (Auto) (0.0-0.2) X10*3/uL Abs Immat Gran (auto) (0.00-0.03) X10*3/uL Absolute Neuts (auto) (2.0-8.3) x10*3/uL Absolute Nucleated RBC (0.0-0.012) X10*3/uL Nucleated RBC % (auto) (0.0-0.2) /100WBC PT 17.1 H (10.0-13.1) SEC INR 1.5 H (0.9-1.1) Sodium (135-145) mmol/L Potassium (3.3-5.1) mmol/L Chloride (96-108) mmol/L Carbon Dioxide (22-29) mmol/L Anion Gap (12-20) BUN (9-16) mg/dL Creatinine (0.5-1.4) mg/dL Estim Creat Clear Calc Estimated GFR Random Glucose (60-115) mg/dL Lactic Acid 1.1 (0.5-2.0) mmol/L Calcium (8.4-10.2) mg/dL Total Bilirubin (0.0-1.0) mg/dL Direct Bilirubin (0.0-0.5) mg/dL AST (5-31) U/L ALT (0-31) U/L Alkaline Phosphatase (39-117) U/L Troponin I High Sens (<3.5-17.0) ng/L B-Natriuretic Peptide (<100) pg/mL Total Protein (6.5-8.0) g/dL Albumin (3.5-5.0) g/dL Respiratory Panel [place] See Note Adenovirus (Rapid PCR) Not Detected (Not Detect.) B.pert (TEM-PCR) Not Detected (Not Detect.) B.parapertussis DNA PCR Not Detected (Not Detect.) C. pneumoniae DNA (PCR) Not Detected (Not Detect.) Coronavirus OC43 (PCR) Not Detected (Not Detect.) Coronavirus HKU1 (PCR) Not Detected (Not Detect.) Coronavirus 229E (PCR) Not Detected (Not Detect.) COVID-19 (ELIZABETH) (Negative) COVID-19 Clin Com Coronavirus NL63 (PCR) Not Detected (Not Detect.) Human Metapneumovir PCR Not Detected (Not Detect.) Influenza Type A (GAYLE) (Negative) Influenza A (RT-PCR) Detected A (Not Detect.) Influenza Type B (GAYLE) (Negative) Influenza B (RT-PCR) Not Detected (Not Detect.) Influenza A & B Note M. pneumoniae (PCR) Not Detected (Not Detect.) Parainfluenza 1 (PCR) Not Detected (Not Detect.) Parainfluenza 2 (PCR) Not Detected (Not Detect.) Parainfluenza 3 (PCR) Not Detected (Not Detect.) Parainfluenza 4 (PCR) Not Detected (Not Detect.) RSV (PCR) Not Detected (Not Detect.) Entero/Rhino (PCR) Not Detected (Not Detect.) SARS-CoV-2 RNA (RT-PCR) Not Detected (Not Detect.) <EMELIA Bai - Last Filed: 05/25/22 17:15> Imaging Data CT scan - chest: Attestation: I personally reviewed and interpreted this imaging study as follows: <Marleen Loya NP - Last Filed: 05/25/22 17:23> I personally reviewed and interpreted this imaging study as follows: <EMELIA Bai - Last Filed: 05/25/22 17:15> My impression: Bilateral infiltrates <Marleen Loya NP - Last Filed: 05/25/22 17:23> Radiologist's impression: EXAMINATION: XR CHEST CLINICAL INFORMATION: Dyspnea COMPARISON: Previous chest x-ray most recent March [address] September 2021 TECHNIQUE: 2 views of the chest were obtained. FINDINGS: There is stable postsurgical change with volume loss to the left hemithorax with shift of the central mediastinal structures to the left. The cardiac and mediastinal contours are stable. There is a small left pleural effusion and atelectasis or consolidation in the left lung adjacent to the left hilar region and at the left lung base. This appears similar to previous exams. The right lung is clear. There is no right pleural effusion. There is no pneumothorax. There are degenerative changes of the spine. There is a mild thoracolumbar scoliosis. XR/XR chest 2V IMPRESSION: Stable postsurgical change with volume loss to the left hemithorax and left pleural and parenchymal changes. Dictated By: Renee Medel MD Signed By: <Electronically signed by Renee Medel MD in [place]> 04/06/22 1020 DD/ 0951 TD/TT:? Technical Sme: CHUY <Marleen Loya NP - Last Filed: 05/25/22 17:23> Critical Care Time Critical Care Time Critical Care Time: Yes <Marleen Loya NP - Last Filed: 05/25/22 17:23> Total Critical Care Time: 30 <Marleen Loya NP - Last Filed: 05/25/22 17:23> Attestation: I performed 30 minutes of critical care time for this patient, outside of other billable procedures <Marleen Loya NP - Last Filed: 05/25/22 17:23> Discharge Plan Discharge Clinical Impression: COPD (chronic obstructive pulmonary disease), Pneumonia <Marleen Loya NP - Last Filed: 05/25/22 17:23> Patient Disposition: Admitted As Inpatient <Marleen Loya NP - Last Filed: 05/25/22 17:23>
[2022-05-25 13:04] LABS: Alanine Aminotransferase 16 U/L (0-31); Albumin Level 3.4 g/dL (3.5-5.0); Alkaline Phosphatase 62 U/L (39-117); Aspartate Amino Transferase 17 U/L (5-31); Bilirubin Direct 0.4 mg/dL (0.0-0.5); Bilirubin Total 1.1 mg/dL (0.0-1.0); Total Protein 6.2 g/dL (6.5-8.0)
[2022-05-25 13:16] LABS: B Type Natriuretic Peptide 232 pg/mL (<100)
[2022-05-25 13:54] LABS: Troponin-I High Sensitivity 16.6 ng/L (<3.5-17.0)
--- NOTE | 2022-05-25 14:18 | PHA.MEDREC ---
Pharmacy Consult ? Medication Reconciliation Pharmacy has completed the medication reconciliation. Patient confirmed all medicaitons. Patient has letter from Dr. Ronald Mills at [facility], that warfarin INR range is to stay between 1.5-2 due to antiphospholipid syndrome and increase risk of bleeding. Ingrid Gordon, PharmD
--- NOTE | 2022-05-25 14:37 | PC.NURSE ---
pt off to ct scan via stretcher.
[2022-05-25 14:48] LABS: Lactic Acid 1.1 mmol/L (0.5-2.0)
[2022-05-25 14:58] LABS: INTERNATIONAL NORM RATIO 1.5 (0.9-1.1); Prothrombin Time 17.1 SEC (10.0-13.1)
[2022-05-25] MEDS: methylPREDNISolone Sod Succ 125 MG/2 ML VIAL 60 MG IVPUSH (16:03)
--- NOTE | 2022-05-25 16:03 | P.HPHOSP_ITS ---
History of Present Illness Date of Service: 05/25/22 Attending physician on admission: Greg Ya Chief Complaint: sob, productive cough 77-year-old female with history of coronary artery disease s/p NSTEMI, HRpEF, history subarachnoid hemorrhage, insomnia, antiphospholipid antibody syndrome, hypogammaglobulinemia, COPD/overlap syndrome compliant with BiPAP and chronic hypoxic respiratory failure using 2 L supplemental O2 as needed for dyspnea, pulmonary hypertension, complex regional pain syndrome of the bilateral lower extremities, PAD, and history of non-small cell lung cancer S/p chemo radiation and left upper lobe lobectomy, and history of PE anticoagulated with Coumadin presented to the ED 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 States symptoms have been ongoing for several weeks but worsening over the last 4 days. She has been noticing increased need for supplemental O2 given oximetry ranging 88-90% on room air. She tells me she was recently admitted to [facility] on 05/15 for COPD exacerbation and H flu pneumonia was not discharged on any antibiotics. She has also noted a small amount of diarrhea, about 5 episodes that started yesterday and today. She has also had fevers up to 102.7 without rigors. No sore throat, sinus pressure, nasal congestion, nausea, vomiting, abdominal pain, urinary symptoms, palpitations, lightheadedness, or chest pressure. There is pleuritic chest pain. She has been completing prednisone taper and took 10 mg this morning. There is a leukocytosis of 22.1 without left shift. Lactic acid 1.1. Renal function baseline with creatinine 1.16, BUN 16, creatinine clearance 32.5. Sodium 132, potassium 4.0, chloride 93, CO2 29. BNP 232, baseline unclear. CXR shows small left pleural effusion with layering and probable atelectasis versus infiltrates. CT chest shows a new oval density within the right lower lobe with other regions of ill-defined airspace disease likely inflammatory in nature. Fo llow-up imaging recommended. Discharge summary from [facility] has been recommended. Patient to be admitted for acute COPD exacerbation with acute on chronic hypoxemic respiratory failure and probable right middle lobe pneumonia. Review of Systems Review of Systems: General: No fevers, malaise, unintentional weight loss. +generalized weakness HEENT: No blurred vision, diplopia. No sore throat, nasal congestion, rhinorrhea, sinus pain, ear pain Cardiovascular: +pleuritic chest pain. No chest pressure, palpitations, or leg edema Respiratory: +dyspnea on exertion, +wheezing, +productive cough GI: +diarrhea. No abdominal pain, nausea, vomiting, constipation, melena, hematochezia : No dysuria, hematuria, increased urinary frequency, decreased urinary output MSK: No myalgia, back pain Neuro: No headaches, weakness, paresthesias Skin: No rashes or lesions [facility] Medical History (HFpEF) heart failure with preserved ejection fraction CLARA positive Anti-phospholipid antibody syndrome Antiphospholipid antibody syndrome Arterial insufficiency of lower extremity Blood D-dimer assay positive Chest pain Chronic respiratory failure Complex regional pain syndrome i of right lower limb COPD (chronic obstructive pulmonary disease) COVID-19 Diverticulitis Dysuria Hypogammaglobulinemia Insomnia Lung cancer Mid sternal chest pain Mycobacterial disease NSTEMI (non-ST elevated myocardial infarction) KANDY treated with BiPAP Pericardial effusion Pleural effusion Pneumonitis Post herpetic neuralgia Pulmonary emboli Pulmonary hypertension Pulmonary nodules Radiation fibrosis of lung Subarachnoid bleed Tracheobronchitis URI (upper respiratory infection) Family History Sister No problems noted. Mother Cardiovascular disease Daughter Tachycardia Other KANDY (obstructive sleep apnea) Surgical History H/O: hysterectomy History of cardiac cath Hx of tonsillectomy Social History Household Members: None Alcohol intake: never Patient Tobacco Use Status: Never used Tobacco Smoked in Last 30 Days: No Second Hand Smoke Exposure: No Use of substances other than those prescribed or required for medical reasons: No Advance Directives: No Meds Allergies Allergy/AdvReac Type Severity Reaction Status Date / Time avocado [AVOCADO] Allergy Mild ITCHY Verified 05/04/22 10:38 THROAT, RASH azithromycin [AZITHROMYCIN] Allergy Mild ITCHY Verified 05/04/22 10:38 THROAT, RASH barium iodide [BARIUM IODIDE] Allergy Mild ITCHY Verified 05/04/22 10:38 THROAT, RASH barium sulfate Allergy Mild Itch Verified 05/04/22 10:38 bee pollen [BEE STINGS] Allergy Mild ITCHY Verified 05/04/22 10:38 THROAT, RASH ciprofloxacin [From CIPRO] Allergy Mild ITCHY Verified 05/04/22 10:38 THROAT, RASH clarithromycin [From BIAXIN] Allergy Mild ITCHY Verified 05/04/22 10:38 THROAT, RASH diatrizoate meglumine Allergy Mild ITCHY Verified 05/04/22 10:38 [From GASTROGRAFIN] THROAT, RASH diatrizoate sodium Allergy Mild ITCHY Verified 05/04/22 10:38 [From GASTROGRAFIN] THROAT, RASH diclofenac [From VOLTAREN] Allergy Mild ITCHY Verified 05/04/22 10:38 THROAT, RASH erythromycin base Allergy Mild ITCHY Verified 05/04/22 10:38 [ERYTHROMYCIN BASE] THROAT, RASH gentamicin [GENTAMICIN] Allergy Mild ITCHY Verified 05/04/22 10:38 THROAT, RASH Iodinated Contrast Media Allergy Mild ITCHY Verified 05/04/22 10:38 [IVP DYE] THROAT, RASH levofloxacin [From LEVAQUIN] Allergy Mild ITCHY Verified 05/04/22 10:38 THROAT, RASH metronidazole [From FLAGYL] Allergy Mild ITCHY Verified 05/04/22 10:38 THROAT, RASH moxifloxacin [From AVELOX] Allergy Mild ITCHY Verified 05/04/22 10:38 THROAT, RASH Penicillins [PENICILLINS] Allergy Mild ITCHY Verified 05/04/22 10:38 THROAT, RASH shrimp [SHRIMP] Allergy Mild ITCHY Verified 05/04/22 10:38 THROAT, RASH Sulfa (Sulfonamide Allergy Mild ITCHY Verified 05/04/22 10:38 Antibiotics) THROAT, [SULFA (SULFONAMIDE RASH ANTIBIOTICS)] vancomycin [VANCOMYCIN] Allergy Mild ITCHY Verified 05/04/22 10:38 THROAT, RASH Active Medications: Current Medications Acetaminophen (Acetaminophen 325 Mg Tablet) 650 mg PO Q6H PRN PRN Reason: Pain, Mild (Pain Scale 1-3) Albuterol Sulfate (Albuterol Sulfate (0.083%) 2.5 Mg/3 Ml Vial.Neb) 2.5 mg INHALE Q2H PRN PRN Reason: Shortness of Breath/Wheezing Albuterol/Ipratropium (Albuterol/Iprat 2.5/0.5mg 3 Ml Ampul.Neb) 3 ml INHALE RQ4H WHILE AWAKE [facility] Ceftriaxone Sodium 1 gm/ (Sodium Chloride) 50 mls @ 100 mls/hr IV Q24H [facility] Doxycycline Hyclate 100 mg/ (Sodium Chloride) 250 mls @ 166.67 mls/hr IV Q12H [facility] Methylprednisolone Sodium Succinate (Methylprednisolone Sod Succ 40 Mg/Ml Vial) 40 mg IVPUSH Q12H [facility] Ondansetron HCl (Ondansetron Hcl 4 Mg/2 Ml Vial) 4 mg IVPUSH Q8H PRN PRN Reason: Nausea and Vomiting Pharmacy Consult (Consult Rx Perform Med Rec) 1 each MISCELLANE ONCE PRN PRN Reason: Consult order Sodium Chloride (0.9 % Sodium Chloride Flush 3 Ml Syringe) 3 ml IVFLUSH QSHIFT [facility] Home Medications Medication Instructions Recorded Confirmed Last Taken Type warfarin 1 mg tablet 1.5 mg PO DAILY 05/06/20 05/25/22 05/24/22 History diazepam 5 mg tablet 5 mg PO BID PRN Anxiety and Sleep 11/26/20 05/25/22 Unknown History meclizine 25 mg tablet 25 mg PO DAILY PRN Dizziness 11/26/20 05/25/22 Unknown History metoprolol succinate 25 mg 25 mg PO BID 09/29/21 05/25/22 05/25/22 History tablet,extended release 24 hr levothyroxine 25 mcg tablet 25 mcg PO MOTUWETHFR@0600 11/17/21 05/25/22 05/25/22 History furosemide 20 mg tablet 20 mg PO DAILY swelling 03/30/22 05/25/22 05/25/22 History levocetirizine 5 mg tablet 5 mg PO BEDTIME allergies 04/25/22 05/25/22 05/24/22 History ferrous gluconate 324 mg (38 mg 1 tab PO QAM 05/25/22 05/25/22 05/25/22 History iron) tablet levothyroxine 25 mcg tablet 50 mcg PO SUSA@0600 05/25/22 05/25/22 05/22/22 Hi story (Synthroid) prednisone 10 mg tablet 10 mg PO DAILY 05/25/22 05/25/22 05/25/22 History rosuvastatin 10 mg tablet 10 mg PO MOWEFR@2100 05/25/22 05/25/22 05/23/22 History Physical Exam Vital Signs and Narrative: Vital Signs: Last Vital Signs Temp 98.6 F 05/25/22 15:53 Pulse 88 05/25/22 15:53 Resp 20 05/25/22 15:53 BP 118/49 L 05/25/22 15:53 Pulse Ox 98 05/25/22 15:53 O2 Del Method 05/25/22 15:53 O2 Flow Rate 2 05/25/22 12:12 BMI result Body Mass Index 23.0 Constitutional - Awake and Alert, No apparent distress Eyes - PERRLA, EOMI Cardiovascular - S1S2, RRR, No edema Respiratory - Normal lung expansion, Normal respiratory effort, No respiratory distress on 2 L supplemental O2 via nasal cannula. Bilateral coarse lung sounds with wheezing and rhonchi, diminished in the right lower lobe Gastrointestinal - NT / ND; +BS; No rebound or guarding - No CVA tenderness Extremities - no calf tenderness bilaterally, no swelling Musculoskeletal - Normal inspection, normal ROM Skin - Warm/Dry Neurological - Alert & oriented x3, CN II-XII in tact, 5/5 strength BUE and BLE Psychological - Appropriate affect Results Labs CBC and Chem 7: 05/25/22 10:56 05/25/22 10:56 Labs: Laboratory Results - last 24 hr 05/25/22 05/25/22 05/25/22 10:56 10:56 10:56 MCV 97.9 MCH 31.9 MCHC 32.6 RDW 13.4 Plt Count 241 MPV 10.3 Immature Gran % (Auto) 1.7 H Neut % (Auto) 88.3 H Lymph % (Auto) 3.2 L [place] % (Auto) 6.5 Eos % (Auto) 0.1 Baso % (Auto) 0.2 Lymph # (Auto) 0.7 L [place] # (Auto) 1.4 H Eos # (Auto) 0.0 Baso # (Auto) 0.1 Abs Immat Gran (auto) 0.37 H Absolute Neuts (auto) 19.5 H Absolute Nucleated RBC 0.000 Nucleated RBC % (auto) 0.0 PT INR Anion Gap 14 Estim Creat Clear Calc 32.5 Estimated GFR 45 Random Glucose 113 Lactic Acid Calcium 9.6 Total Bilirubin 1.1 H Direct Bilirubin 0.4 AST 17 ALT 16 Alkaline Phosphatase 62 Troponin I High Sens B-Natriuretic Peptide Total Protein 6.2 L Albumin 3.4 L COVID-19 (ELIZABETH) COVID-19 Clin Com Influenza Type A (GAYLE) Negative Influenza Type B (GAYEL) Negative Influenza A & B Note See Note 05/25/22 05/25/22 05/25/22 10:56 10:56 10:56 MCV MCH MCHC RDW Plt Count MPV Immature Gran % (Auto) Neut % (Auto) Lymph % (Auto) [place] % (Auto) Eos % (Auto) Baso % (Auto) Lymph # (Auto) [place] # (Auto) Eos # (Auto) Baso # (Auto) Abs Immat Gran (auto) Absolute Neuts (auto) Absolute Nucleated RBC Nucleated RBC % (auto) PT INR Anion Gap Estim Creat Clear Calc Estimated GFR Random Glucose Lactic Acid Calcium Total Bilirubin Direct Bilirubin AST ALT Alkaline Phosphatase Troponin I High Sens 16.6 B-Natriuretic Peptide 232 H Total Protein Albumin COVID-19 (ELIZABETH) Negative COVID-19 Clin Com See Note Influenza Type A (GAYLE) Influenza Type B (GAYLE) Influenza A & B Note 05/25/22 05/25/22 14:30 14:30 MCV MCH MCHC RDW Plt Count MPV Immature Gran % (Auto) Neut % (Auto) Lymph % (Auto) [place] % (Auto) Eos % (Auto) Baso % (Auto) Lymph # (Auto) [place] # (Auto) Eos # (Auto) Baso # (Auto) Abs Immat Gran (auto) Absolute Neuts (auto) Absolute Nucleated RBC Nucleated RBC % (auto) PT 17.1 H INR 1.5 H Anion Gap Estim Creat Clear Calc Estimated GFR Random Glucose Lactic Acid 1.1 Calcium Total Bilirubin Direct Bilirubin AST ALT Alkaline Phosphatase Troponin I High Sens B-Natriuretic Peptide Total Protein Albumin COVID-19 (ELIZABETH) COVID-19 Clin Com Influenza Type A (GAYLE) Influenza Type B (GAYLE) Influenza A & B Note Imaging Radiologist's Impressions: Impressions Chest X-Ray 05/25/22 11:23 IMPRESSION: Small left pleural effusion with layering and probable atelectasis/infiltrates with similar appearance. Increased right basilar atelectasis/infiltrates. Chest CT 05/25/22 14:49 IMPRESSION: Stable left postsurgical change. New oval density within the right lower lobe with other regions of ill-defined airspace disease likely inflammatory in nature. Follow-up study to ensure resolution is recommended. Fleischner guidelines were followed. Assessment and Plan (1) CHF exacerbation: Status: Acute (2) Right lower lobe pneumonia: Status: Acute (3) COPD exacerbation: Status: Acute (4) Acute and chronic respiratory failure with hypoxia: Status: Acute Plan 77-year-old female with history of coronary artery disease s/p NSTEMI, HRpEF, history subarachnoid hemorrhage, insomnia, antiphospholipid antibody syndrome, hypogammaglobulinemia, COPD/overlap syndrome compliant with BiPAP and chronic hypoxic respiratory failure using 2 L supplemental O2 as needed for dyspnea, pulmonary hypertension, complex regional pain syndrome of the bilateral lower extremities, PAD, and history of non-small cell lung cancer S/p chemo radiation and left upper lobe lobectomy, and history of PE anticoagulated with Coumadin admitted for acute COPD exacerbation with acute on chronic hypoxemic respiratory failure and CHF exacerbation with possible right lower lobe pneumonia. # acute on chronic hypoxemic respiratory failure-secondary to COPD exacerbation and possible right lower lobe pneumonia -continue supplemental O2 to maintain oximetry around 92-95% # right lower lobe pneumonia -CT chest with new right middle and lower lobe density -procalcitonin pending -leukocytosis likely secondary to oral steroid use rather than sepsis but infection may be contributory -IV ceftriaxone and doxycycline -continue supplemental O2 as above -respiratory panel pending # acute COPD exacerbation with chronic hypoxic respiratory failure- secondary to pneumonia versus viral URI vs CHF exacerbation -DuoNebs q.4h while awake -albuterol q.2h p.r.n. -IV Solu-Medrol -supplemental O2 as above -treat pneumonia as above # acute CHF exacerbation with baseline chronic heart failure with preserved ejection fraction -small left-sided pleural effusion on CXR -IV Lasix 20 mg b.i.d. -follow BNP -cardiac diet -strict I&O -admit to telemetry # CAD/HLD s/p NSTEMI-no anginal chest pain -continue beta-karine, statin # history pulmonary embolism -continue Coumadin -follow INR. Currently subtherapeutic at 1.5 # hypothyroidism -continue levothyroxine # non-small cell lung cancer -s/p chemo radiation in left upper lobe lobectomy -outpatient follow-up #Diarrhea -GI panel and cdiff ordered -Immodium if non infectious DVT prophylaxis-on Coumadin full code Patient requires inpatient stay of at least 2 midnights for management of COPD exacerbation with acute on chronic hypoxemic respiratory failure requiring supplemental O2 as well as IV steroids and nebulizer treatments in addition to IV diuresis for acute CHF exacerbation. Quality Stroke Does the patient have a stroke diagnosis?: No VTE Prior VTE?: No VTE Risk Level:: Medical - moderate - high VTE Device Contraindication: Treatment Not Indicated VTE Drug Contraindication: N/A - Med Ordered
[2022-05-25] MEDS: cefTRIAXone sodium 1 GM in 0.9 % Sodium Chloride 50 ML IV (16:04)
[2022-05-25 16:54] LABS: Adenovirus PCR Not Detected (Not Detect.); Bordetella parapertussis PCR Not Detected (Not Detect.); Bordetella pertussis PCR Not Detected (Not Detect.); Chlamydia pneumoniae PCR Not Detected (Not Detect.); Coronavirus 229E PCR Not Detected (Not Detect.); Coronavirus HKU1 PCR Not Detected (Not Detect.); Coronavirus NL63 PCR Not Detected (Not Detect.); Coronavirus OC43 PCR Not Detected (Not Detect.); Human metapneumovirus PCR Not Detected (Not Detect.); Influenza A PCR Detected (Not Detect.); Influenza B PCR Not Detected (Not Detect.); Mycoplasma pneumoniae PCR Not Detected (Not Detect.); Parainfluenza 1 PCR Not Detected (Not Detect.); Parainfluenza 2 PCR Not Detected (Not Detect.); Parainfluenza 3 PCR Not Detected (Not Detect.); Parainfluenza 4 PCR Not Detected (Not Detect.); RSV PCR Not Detected (Not Detect.); Rhino/Enterovirus PCR Not Detected (Not Detect.); SARS-CoV-2 PCR Not Detected (Not Detect.)
[2022-05-25] MEDS: Doxycycline Hyclate 100 MG in 0.9 % Sodium Chloride 250 ML 166.67 MG IV ×2 (18:02→19:58)
[2022-05-25] MEDS: Furosemide 20 MG/2 ML VIAL IVPUSH (18:02)
[2022-05-25] MEDS: 0.9 % Sodium Chloride Flush 3 ML SYRINGE IVFLUSH ×2 (18:03→21:25)
[2022-05-25] MEDS: Ferrous Sulfate 324 MG TABLET.DR PO (18:03)
[2022-05-25] MEDS: Albuterol/Iprat 2.5/0.5MG 3 ML AMPUL.NEB INHALE (19:02)
--- NOTE | 2022-05-25 19:54 | PC.NURSE ---
Previous paused doxycycline infusion because pt was complaining about pain at IV site. Infusion was not restarted because previous RN was unable to place new IV. Pharmacy changed the time for the antibiotic that was
[2022-05-25] MEDS: Warfarin Sodium 0.5 MG HALFTAB 1.5 MG PO (20:03)
[2022-05-25 21:09] LABS: CDiff Gene PCR NEGATIVE (Negative)
[2022-05-25] MEDS: traZODone HCL 100 MG TABLET PO (21:25)
[2022-05-25] MEDS: Metoprolol Succinate ER 25 MG TAB.ER.24H PO (21:25)
[2022-05-25] MEDS: Atorvastatin Calcium 40 MG TABLET PO (21:25)
[2022-05-25] MEDS: Montelukast Sodium 10 MG TABLET PO (22:04)
[2022-05-26] VITALS (11 sets, daily range): BP systolic 99–123; BP diastolic 50–60; PULSE 65–95; RESP 16–18; TEMP 36.2–37.1; O2SAT 94–99
[2022-05-26] MEDS: methylPREDNISolone Sod Succ 40 MG/ML VIAL IVPUSH ×2 (03:23→16:42)
[2022-05-26] MEDS: Levothyroxine Sodium 25 MCG TABLET PO (06:09)
[2022-05-26] MEDS: Doxycycline Hyclate 100 MG in 0.9 % Sodium Chloride 250 ML 166.67 MG IV ×2 (06:10→19:01)
[2022-05-26 07:14] LABS: Basophils Percent Auto 0.2 % (0-2); Hematocrit 35.6 % (37.0-47.0); Hemoglobin 11.7 g/dl (12.0-16.0); Imm Gran Abs Auto 0.22 X10*3/uL (0.00-0.03); Imm Gran Pct Auto 1.6 % (0.0-0.4); Lymphocytes Absolute Auto 0.3 X10*3/uL (1.2-4.9); Lymphocytes Percent Auto 2.4 % (20-40); MANUAL DIFF FLAG SCAN; Mean Corpuscular HGB Conc 32.9 g/dl (31.0-35.0); Mean Corpuscular Hemoglobin 31.6 pg (27.0-33.0); Mean Corpuscular Volume 96.2 fL (80.0-98.0); Monocytes Absolute Auto 0.4 X10*3/uL (0.1-1.2); Monocytes Percent Auto 3.1 % (2-11); Neutrophils Percent Auto 92.7 % (45-73); Platelet Count 241 X10*3/uL (160-400); Red Cell Distribution Width 13.2 % (11.0-16.0); SCAN SMEAR FLAG 1
[2022-05-26 07:18] LABS: INTERNATIONAL NORM RATIO 1.4 (0.9-1.1); Prothrombin Time 16.2 SEC (10.0-13.1)
[2022-05-26 07:28] LABS: Anion Gap 15 (12-20); Blood Urea Nitrogen 17 mg/dL (9-16); Calcium 9.9 mg/dL (8.4-10.2); Carbon Dioxide 28 mmol/L (22-29); Chloride 100 mmol/L (96-108); Creatinine Clr Calc Pharmacy 43.4; Estimated Glomerular Filt Rate > 60; Glucose Random 163 mg/dL (60-115); Potassium 4.3 mmol/L (3.3-5.1); Sodium 139 mmol/L (135-145)
--- NOTE | 2022-05-26 07:29 | HO.PM.IMPN ---
Subjective Subjective Date of Service: 05/26/22 Interval History: Seen in follow-up for acute on chronic respiratory failure with hypoxia, COPD exacerbation, pneumonia, CHF exacerbation Interval history: Patient resting comfortably on room air. Still has productive cough and wheezing. Reports weakness. Has tested positive for influenza A, reports vaccinated against influenza. Still having diarrhea. C diff and GI panel negative Review of Systems General: No fevers, malaise, unintentional weight loss HEENT: No blurred vision, diplopia. No sore throat, nasal congestion, rhinorrhea, sinus pain, ear pain Cardiovascular: No chest pain, palpitations, or leg edema Respiratory: + shortness of breath, +wheezing, +cough GI: +diarrhea. No abdominal pain, nausea, vomiting, constipation, melena, hematochezia MSK: No myalgia, back pain Neuro: No headaches, weakness, paresthesias Skin: No rashes or lesions Physical Exam Vital Signs: Vital Signs: Last Vital Signs Temp 97.8 F 05/26/22 03:28 Pulse 95 05/26/22 03:28 Resp 18 05/26/22 03:28 BP 99/51 L 05/26/22 03:28 Pulse Ox 94 05/26/22 03:28 O2 Del Method 05/26/22 03:28 O2 Flow Rate 2 05/25/22 12:12 BMI result Body Mass Index 23.0 Constitutional - Awake and Alert, No apparent distress Eyes - PERRLA, EOMI Cardiovascular - S1S2, RRR, No edema Respiratory - Normal lung expansion, Normal respiratory effort, No respiratory distress, Coarse lung sound bilaterally with scattered wheezes and rhonchi RML and RLL Gastrointestinal - NT / ND; +BS; No rebound or guarding Extremities - no calf tenderness bilaterally, no swelling Skin - Warm/Dry Neurological - Alert & oriented x3 Psychological - Appropriate affect Objective Data Active Medications Acetaminophen (Acetaminophen 325 Mg Tablet) 650 mg PO Q6H PRN PRN Reason: Pain, Mild (Pain Scale 1-3) Albuterol Sulfate (Albuterol Sulfate (0.083%) 2.5 Mg/3 Ml Vial.Neb) 2.5 mg INHALE Q2H PRN PRN Reason: Shortness of Breath/Wheezing Albuterol/Ipratropium (Albuterol/Iprat 2.5/0.5mg 3 Ml Ampul.Neb) 3 ml INHALE RQ4H WHILE AWAKE [facility] Last Admin: 05/25/22 19:02 Dose: 3 ml Documented By: MONA Atorvastatin Calcium (Atorvastatin Calcium 40 Mg Tablet) 40 mg PO MOWEFR@2100 [facility] Last Admin: 05/25/22 21:25 Dose: 40 mg Documented By: IFTIKHAR Diazepam (Diazepam 5 Mg Tablet) 5 mg PO BID PRN PRN Reason: Anxiety and Sleep Ferrous Sulfate (Ferrous Sulfate 324 Mg Tablet.Dr) 1 mg PO DAILY [facility] Last Admin: 05/25/22 18:03 Dose: 1 mg Documented By: ROSA MARIA Fluticasone/Vilanterol (Fluticasone/Vilanterol 200/25 Blst.W.Dev) 1 puff INHALE RDAILY [facility] Furosemide (Furosemide 20 Mg/2 Ml Vial) 20 mg IVPUSH BID@0900,1800 [facility]; Protocol Last Admin: 05/25/22 18:02 Dose: 20 mg Documented By: ROSA MARIA Ceftriaxone Sodium 1 gm/ (Sodium Chloride) 50 mls @ 100 mls/hr IV Q24H [facility] Doxycycline Hyclate 100 mg/ (Sodium Chloride) 250 mls @ 166.67 mls/hr IV Q12H [facility] Last Admin: 05/26/22 06:10 Dose: 166.67 mls/hr Documented By: IFTIKHAR Levothyroxine Sodium (Levothyroxine Sodium 25 Mcg Tablet) 25 mcg PO MOTUWETHFR@0600 [facility] Last Admin: 05/26/22 06:09 Dose: 25 mcg Documented By: IFTIKHAR Levothyroxine Sodium (Levothyroxine Sodium 50 Mcg Tablet) 50 mcg PO SUSA@0600 [facility] Loratadine (Loratadine 10 Mg Tablet) 10 mg PO BEDTIME [facility] Last Admin: 05/25/22 21:32 Dose: Not Given Documented By: IFTIKHAR Non-Admin Reason: Patient Refused Meclizine HCl (Meclizine Hcl 25 Mg Tablet) 25 mg PO DAILY PRN PRN Reason: Dizziness Methylprednisolone Sodium Succinate (Methylprednisolone Sod Succ 40 Mg/Ml Vial) 40 mg IVPUSH Q12H [facility] Last Admin: 05/26/22 03:23 Dose: 40 mg Documented By: IFTIKHAR Metoprolol Succinate (Metoprolol Succinate Er 25 Mg Tab.Er.24h) 25 mg PO BID [facility]; Protocol Last Admin: 05/25/22 21:25 Dose: 25 mg Documented By: IFTIKHAR Montelukast Sodium (Montelukast Sodium 10 Mg Tablet) 10 mg PO BEDTIME [facility] Last Admin: 05/25/22 22:04 Dose: 10 mg Documented By: IFTIKHAR Ondansetron HCl (Ondansetron Hcl 4 Mg/2 Ml Vial) 4 mg IVPUSH Q8H PRN PRN Reason: Nausea and Vomiting Pharmacy Consult (Consult Rx Perform Med Rec) 1 each MISCELLANE ONCE PRN PRN Reason: Consult order Sodium Chloride (0.9 % Sodium Chloride Flush 3 Ml Syringe) 3 ml IVFLUSH QSHIFT [facility] Last Admin: 05/25/22 21:25 Dose: 3 ml Documented By: IFTIKHAR Trazodone HCl (Trazodone Hcl 100 Mg Tablet) 100 mg PO BEDTIME [facility] Last Admin: 05/25/22 21:25 Dose: 100 mg Documented By: IFTIKHAR Warfarin Sodium (Warfarin Sodium 0.5 Mg Halftab) 1.5 mg PO DAILY@1800 [facility] Last Admin: 05/25/22 20:03 Dose: 1.5 mg Documented By: SERL Labs CBC & Chem 7: 05/26/22 06:25 05/26/22 06:25 Labs: Laboratory Results - last 24 hr 05/25/22 05/25/22 05/25/22 10:56 10:56 10:56 MCV 97.9 MCH 31.9 MCHC 32.6 RDW 13.4 Plt Count 241 MPV 10.3 Immature Gran % (Auto) 1.7 H Neut % (Auto) 88.3 H Lymph % (Auto) 3.2 L Bureau % (Auto) 6.5 Eos % (Auto) 0.1 Baso % (Auto) 0.2 Lymph # (Auto) 0.7 L Bureau # (Auto) 1.4 H Eos # (Auto) 0.0 Baso # (Auto) 0.1 Abs Immat Gran (auto) 0.37 H Absolute Neuts (auto) 19.5 H Absolute Nucleated RBC 0.000 Nucleated RBC % (auto) 0.0 PT INR Anion Gap 14 Estim Creat Clear Calc 32.5 Estimated GFR 45 Random Glucose 113 Lactic Acid Calcium 9.6 Total Bilirubin 1.1 H Direct Bilirubin 0.4 AST 17 ALT 16 Alkaline Phosphatase 62 Troponin I High Sens B-Natriuretic Peptide Total Protein 6.2 L Albumin 3.4 L Respiratory Panel [place] Adenovirus (Rapid PCR) B.pert (TEM-PCR) B.parapertussis DNA PCR C. pneumoniae DNA (PCR) C. difficile Tox B Gene Coronavirus OC43 (PCR) Coronavirus HKU1 (PCR) Coronavirus 229E (PCR) COVID-19 ([facility]) COVID-19 Clin Com Coronavirus NL63 (PCR) Human Metapneumovir PCR Influenza Type A ([facility]) Negative Influenza A (RT-PCR) Influenza Type B ([facility]YLE) Negative Influenza B (RT-PCR) Influenza A & B Note See Note M. pneumoniae (PCR) Parainfluenza 1 (PCR) Parainfluenza 2 (PCR) Parainfluenza 3 (PCR) Parainfluenza 4 (PCR) RSV (PCR) Entero/Rhino (PCR) SARS-CoV-2 RNA (RT-PCR) 05/25/22 05/25/22 05/25/22 10:56 10:56 10:56 MCV MCH MCHC RDW Plt Count MPV Immature Gran % (Auto) Neut % (Auto) Lymph % (Auto) Bureau % (Auto) Eos % (Auto) Baso % (Auto) Lymph # (Auto) Bureau # (Auto) Eos # (Auto) Baso # (Auto) Abs Immat Gran (auto) Absolute Neuts (auto) Absolute Nucleated RBC Nucleated RBC % (auto) PT INR Anion Gap Estim Creat Clear Calc Estimated GFR Random Glucose Lactic Acid Calcium Total Bilirubin Direct Bilirubin AST ALT Alkaline Phosphatase Troponin I High Sens 16.6 B-Natriuretic Peptide 232 H Total Protein Albumin Respiratory Panel [place] Adenovirus (Rapid PCR) B.pert (TEM-PCR) B.parapertussis DNA PCR C. pneumoniae DNA (PCR) C. difficile Tox B Gene Coronavirus OC43 (PCR) Coronavirus HKU1 (PCR) Coronavirus 229E (PCR) COVID-19 ([facility]) Negative COVID-19 Clin Com See Note Coronavirus NL63 (PCR) Human Metapneumovir PCR Influenza Type A ([facility]YLE) Influenza A (RT-PCR) Influenza Type B ([facility]YLE) Influenza B (RT-PCR) Influenza A & B Note M. pneumoniae (PCR) Parainfluenza 1 (PCR) Parainfluenza 2 (PCR) Parainfluenza 3 (PCR) Parainfluenza 4 (PCR) RSV (PCR) Entero/Rhino (PCR) SARS-CoV-2 RNA (RT-PCR) 05/25/22 05/25/22 05/25/22 14:30 14:30 14:31 MCV MCH MCHC RDW Plt Count MPV Immature Gran % (Auto) Neut % (Auto) Lymph % (Auto) Bureau % (Auto) Eos % (Auto) Baso % (Auto) Lymph # (Auto) Bureau # (Auto) Eos # (Auto) Baso # (Auto) Abs Immat Gran (auto) Absolute Neuts (auto) Absolute Nucleated RBC Nucleated RBC % (auto) PT 17.1 H INR 1.5 H Anion Gap Estim Creat Clear Calc Estimated GFR Random Glucose Lactic Acid 1.1 Calcium Total Bilirubin Direct Bilirubin AST ALT Alkaline Phosphatase Troponin I High Sens B-Natriuretic Peptide Total Protein Albumin Respiratory Panel [place] See Note Adenovirus (Rapid PCR) Not Detected B.pert (TEM-PCR) Not Detected B.parapertussis DNA PCR Not Detected C. pneumoniae DNA (PCR) Not Detected C. difficile Tox B Gene Coronavirus OC43 (PCR) Not Detected Coronavirus HKU1 (PCR) Not Detected Coronavirus 229E (PCR) Not Detected COVID-19 ([facility]) COVID-19 Clin Com Coronavirus NL63 (PCR) Not Detected Human Metapneumovir PCR Not Detected Influenza Type A ([facility]) Influenza A (RT-PCR) Detected A Influenza Type B ([facility]) Influenza B (RT-PCR) Not Detected Influenza A & B Note M. pneumoniae (PCR) Not Detected Parainfluenza 1 (PCR) Not Detected Parainfluenza 2 (PCR) Not Detected Parainfluenza 3 (PCR) Not Detected Parainfluenza 4 (PCR) Not Detected RSV (PCR) Not Detected Entero/Rhino (PCR) Not Detected SARS-CoV-2 RNA (RT-PCR) Not Detected 05/25/22 05/26/22 05/26/22 19:51 06:25 06:25 MCV 96.2 MCH 31.6 MCHC 32.9 RDW 13.2 Plt Count 241 MPV 11.0 Immature Gran % (Auto) Neut % (Auto) Lymph % (Auto) Bureau % (Auto) Eos % (Auto) Baso % (Auto) Lymph # (Auto) Bureau # (Auto) Eos # (Auto) Baso # (Auto) Abs Immat Gran (auto) Absolute Neuts (auto) Absolute Nucleated RBC Nucleated RBC % (auto) PT 16.2 H INR 1.4 H Anion Gap Estim Creat Clear Calc Estimated GFR Random Glucose Lactic Acid Calcium Total Bilirubin Direct Bilirubin AST ALT Alkaline Phosphatase Troponin I High Sens B-Natriuretic Peptide Total Protein Albumin Respiratory Panel [place] Adenovirus (Rapid PCR) B.pert (TEM-PCR) B.parapertussis DNA PCR C. pneumoniae DNA (PCR) C. difficile Tox B Gene NEGATIVE Coronavirus OC43 (PCR) Coronavirus HKU1 (PCR) Coronavirus 229E (PCR) COVID-19 ([facility]) COVID-19 Clin Com Coronavirus NL63 (PCR) Human Metapneumovir PCR Influenza Type A ([facility]) Influenza A (RT-PCR) Influenza Type B ([facility]YLE) Influenza B (RT-PCR) Influenza A & B Note M. pneumoniae (PCR) Parainfluenza 1 (PCR) Parainfluenza 2 (PCR) Parainfluenza 3 (PCR) Parainfluenza 4 (PCR) RSV (PCR) Entero/Rhino (PCR) SARS-CoV-2 RNA (RT-PCR) 05/26/22 06:25 MCV MCH MCHC RDW Plt Count MPV Immature Gran % (Auto) Neut % (Auto) Lymph % (Auto) Bureau % (Auto) Eos % (Auto) Baso % (Auto) Lymph # (Auto) Bureau # (Auto) Eos # (Auto) Baso # (Auto) Abs Immat Gran (auto) Absolute Neuts (auto) Absolute Nucleated RBC Nucleated RBC % (auto) PT INR Anion Gap 15 Estim Creat Clear Calc 43.4 Estimated GFR > 60 Random Glucose 163 H Lactic Acid Calcium 9.9 Total Bilirubin Direct Bilirubin AST ALT Alkaline Phosphatase Troponin I High Sens B-Natriuretic Peptide Total Protein Albumin Respiratory Panel [place] Adenovirus (Rapid PCR) B.pert (TEM-PCR) B.parapertussis DNA PCR C. pneumoniae DNA (PCR) C. difficile Tox B Gene Coronavirus OC43 (PCR) Coronavirus HKU1 (PCR) Coronavirus 229E (PCR) COVID-19 ([facility]) COVID-19 Clin Com Coronavirus NL63 (PCR) Human Metapneumovir PCR Influenza Type A ([facility]YLE) Influenza A (RT-PCR) Influenza Type B ([facility]) Influenza B (RT-PCR) Influenza A & B Note M. pneumoniae (PCR) Parainfluenza 1 (PCR) Parainfluenza 2 (PCR) Parainfluenza 3 (PCR) Parainfluenza 4 (PCR) RSV (PCR) Entero/Rhino (PCR) SARS-CoV-2 RNA (RT-PCR) Assessment and Plan (1) Pneumonia: Status: Acute (2) Acute and chronic respiratory failure with hypoxia: Status: Acute (3) COPD exacerbation: Status: Acute (4) Right lower lobe pneumonia: Status: Acute (5) CHF exacerbation: Status: Acute Plan 77-year-old female with history of coronary artery disease s/p NSTEMI, HRpEF, history subarachnoid hemorrhage, insomnia, antiphospholipid antibody syndrome, hypogammaglobulinemia, COPD/overlap syndrome compliant with BiPAP and chronic hypoxic respiratory failure using 2 L supplemental O2 as needed for dyspnea, pulmonary hypertension, complex regional pain syndrome of the bilateral lower extremities, PAD, and history of non-small cell lung cancer S/p chemo radiation and left upper lobe lobectomy, and history of PE anticoagulated with Coumadin admitted for acute COPD exacerbation with acute on chronic hypoxemic respiratory failure and CHF exacerbation with possible right lower lobe pneumonia. # acute on chronic hypoxemic respiratory failure-secondary to COPD exacerbation and possible right lower lobe pneumonia- resolved -continue supplemental O2 to maintain oximetry around 92-95% # right lower lobe pneumonia- likely strep pneumo following influenza diagnosis -CT chest with new right middle and lower lobe density -STrep pneumo and legionella pcr pending -WBC trending down -IV ceftriaxone and doxycycline -continue supplemental O2 as above -respiratory panel positive for influenza A #influenza A -droplet precautions -initiate tamiflu # acute COPD exacerbation with chronic hypoxic respiratory failure- secondary to pneumonia versus influenza -Recent admission to [facility] 05/15-02/28 for COPD exacerbation. Discharge summary reviewed -patient states she does not tolerate ipratropium. Albuterol q.4h while awake -Lungs still coarse, rhonchorous with wheezing -albuterol q.2h p.r.n. -IV Solu-Medrol -supplemental O2 as above -treat pneumonia as above # acute CHF exacerbation with baseline chronic heart failure with preserved ejection fraction -small left-sided pleural effusion on CXR -Transition to PO Lasix 20 mg daily am, which is home dose -follow BNP -cardiac diet -strict I&O -admit to telemetry # CAD/HLD s/p NSTEMI-no anginal chest pain -continue beta-karine, statin # history pulmonary embolism -continue Coumadin -follow INR.? 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[employer] d/t antiphospholipid syndrome # hypothyroidism -continue levothyroxine # non-small cell lung cancer -s/p chemo radiation in left upper lobe lobectomy -outpatient follow-up #Diarrhea -GI panel and cdiff negative -Immodium prn DVT prophylaxis-on Coumadin- goal INR 1.5-2.0 per her associate professor of biology full code Ongoing inpt stay due to COPD exacerbation and CHF exacerbation requiring IV steroids and IV diuresis titrating off supplemental O2 requiring close monitoring for cardiopulmonary decline/hypoxia Quality Stroke Does the patient have a stroke diagnosis?: No VTE Prior VTE?: No VTE Risk Level:: Medical - moderate - high VTE Device Contraindication: Treatment Not Indicated VTE Drug Contraindication: N/A - Med Ordered
[2022-05-26 07:44] LABS: SLIDE REVIEW VERIFIED
[2022-05-26] MEDS: Albuterol/Iprat 2.5/0.5MG 3 ML AMPUL.NEB INHALE (08:17)
[2022-05-26 08:50] LABS: Campylobacter Not Detected (Not Detect.); Cryptosporidium Not Detected (Not Detect.); E. coli EAEC Not Detected (Not Detect.); E. coli EPEC Not Detected (Not Detect.); E. coli ETEC Not Detected (Not Detect.); E. coli STEC Not Detected (Not Detect.); Plesiomonas shigelloides Not Detected (Not Detect.); Salmonella Not Detected (Not Detect.); Shigella sp./EIEC Not Detected (Not Detect.); Vibrio Not Detected (Not Detect.); Vibrio Cholerae Not Detected (Not Detect.); Yersinia enterocolitica Not Detected (Not Detect.)
[2022-05-26 08:51] LABS: Adenovirus F 40/41 Not Detected (Not Detect.); Astrovirus Not Detected (Not Detect.); Cyclospora cayetanensis Not Detected (Not Detect.); Entamoeba histolytica Not Detected (Not Detect.); Giardia lamblia Not Detected (Not Detect.); Norovirus GI/GII Not Detected (Not Detect.); Rotavirus A Not Detected (Not Detect.); Sapovirus Not Detected (Not Detect.)
[2022-05-26] MEDS: Furosemide 20 MG/2 ML VIAL IVPUSH ×2 (08:53→19:01)
[2022-05-26] MEDS: 0.9 % Sodium Chloride Flush 3 ML SYRINGE IVFLUSH ×3 (08:53→20:38)
[2022-05-26] MEDS: Metoprolol Succinate ER 25 MG TAB.ER.24H PO ×2 (08:54→20:36)
[2022-05-26] MEDS: Ferrous Sulfate 324 MG TABLET.DR PO (08:56)
[2022-05-26 09:33] LABS: B Type Natriuretic Peptide 220 pg/mL (<100)
--- NOTE | 2022-05-26 10:06 | MHC.CM.PN ---
PATIENT LIVES ALONE. SHE IS INDEPENDENT WITH ADLS. HAS HOME O2 WHEN NEEDED AND A BIPAP. SHE HAS A HCP AND COPY IS REQUESTED. NO VNA IN THE HOME. PATIENT FEELS SHE WILL NEED HELP WITH TRANSPORTATION. SHE HAS BEEN COVID VAX X 2 AND REPORTS BEING HOSPITALIZED X2 POST IMMUNIZATION IMM 05/26 IN CHART
[2022-05-26] MEDS: Fluticasone/Vilanterol 200/25 BLST.W.DEV 1 PUFF INHALE (11:39)
[2022-05-26] MEDS: Albuterol Sulfate (0.083%) 2.5 MG/3 ML VIAL.NEB INHALE ×3 (11:39→20:06)
--- NOTE | 2022-05-26 12:48 | PC.NURSE ---
pt refused Tamiflu. Leonor Gaytan made aware.
[2022-05-26] MEDS: cefTRIAXone sodium 1 GM in 0.9 % Sodium Chloride 50 ML IV (16:42)
[2022-05-26] MEDS: Warfarin Sodium 0.5 MG HALFTAB 1.5 MG PO (17:41)
[2022-05-26] MEDS: traZODone HCL 100 MG TABLET PO (20:36)
[2022-05-26] MEDS: Montelukast Sodium 10 MG TABLET PO (20:36)
[2022-05-26] MEDS: diazePAM 5 MG TABLET PO (21:55)
[2022-05-26] MEDS: Sodium Chloride 0.65 % Nasal 44 ML SPRBTL 1 SPRAY NOSTRIL-B (21:58)
[2022-05-27] VITALS (11 sets, daily range): BP systolic 112–135; BP diastolic 56–63; PULSE 75–96; RESP 15–20; TEMP 36–36.5; O2SAT 94–98
[2022-05-27] MEDS: methylPREDNISolone Sod Succ 40 MG/ML VIAL IVPUSH ×2 (03:27→15:47)
[2022-05-27] MEDS: Levothyroxine Sodium 25 MCG TABLET PO (06:15)
[2022-05-27] MEDS: Doxycycline Hyclate 100 MG in 0.9 % Sodium Chloride 250 ML 166.67 MG IV ×2 (06:15→18:06)
[2022-05-27] MEDS: Albuterol Sulfate (0.083%) 2.5 MG/3 ML VIAL.NEB INHALE ×4 (06:37→20:13)
[2022-05-27 06:40] LABS: Prothrombin Time 23.5 SEC (10.0-13.1)
[2022-05-27 06:50] LABS: Basophils Absolute Auto 0.1 X10*3/uL (0.0-0.2); Basophils Percent Auto 0.2 % (0-2); Hematocrit 34.5 % (37.0-47.0); Hemoglobin 11.3 g/dl (12.0-16.0); Imm Gran Abs Auto 0.33 X10*3/uL (0.00-0.03); Imm Gran Pct Auto 1.5 % (0.0-0.4); Lymphocytes Absolute Auto 0.5 X10*3/uL (1.2-4.9); Lymphocytes Percent Auto 2.3 % (20-40); MANUAL DIFF FLAG SCAN; Mean Corpuscular HGB Conc 32.8 g/dl (31.0-35.0); Mean Corpuscular Hemoglobin 31.8 pg (27.0-33.0); Mean Corpuscular Volume 97.2 fL (80.0-98.0); Mean Platelet Volume 11.4 fL (9.4-12.3); Monocytes Absolute Auto 0.8 X10*3/uL (0.1-1.2); Monocytes Percent Auto 3.7 % (2-11); Neutrophils Percent Auto 92.3 % (45-73); Platelet Count 281 X10*3/uL (160-400); Red Blood Count 3.55 X10*6/uL (4.20-5.50); Red Cell Distribution Width 13.1 % (11.0-16.0); SCAN SMEAR FLAG 1; White Blood Count 21.7 X10*3/uL (4.8-10.8)
[2022-05-27 06:58] LABS: Anion Gap 16 (12-20); Blood Urea Nitrogen 20 mg/dL (9-16); Calcium 9.5 mg/dL (8.4-10.2); Carbon Dioxide 27 mmol/L (22-29); Chloride 99 mmol/L (96-108); Creatinine Clr Calc Pharmacy 48.4; Estimated Glomerular Filt Rate > 60; Glucose Random 149 mg/dL (60-115); Potassium 3.8 mmol/L (3.3-5.1); Sodium 138 mmol/L (135-145)
[2022-05-27 07:44] LABS: SLIDE REVIEW VERIFIED
[2022-05-27] MEDS: Ferrous Sulfate 324 MG TABLET.DR PO (08:29)
[2022-05-27] MEDS: Metoprolol Succinate ER 25 MG TAB.ER.24H PO ×2 (08:29→20:27)
[2022-05-27] MEDS: Furosemide 20 MG TABLET PO ×2 (08:29→18:05)
[2022-05-27] MEDS: 0.9 % Sodium Chloride Flush 3 ML SYRINGE IVFLUSH ×3 (08:33→20:27)
[2022-05-27] MEDS: Omeprazole 40 MG CAPSULE.DR PO (11:19)
--- NOTE | 2022-05-27 11:50 | HO.PM.IMPN ---
Subjective Subjective Date of Service: 05/27/22 Interval History: cc: sob interval history:still very sob especially on ambulation Cardiovascular Cardiovascular: Reports no additional cardiovascular complaints Respiratory Respiratory: Reports no additional respiratory complaints Physical Exam Vital Signs: Vital Signs: Last Vital Signs Temp 97.2 F 05/27/22 11:47 Pulse 93 05/27/22 11:47 Resp 18 05/27/22 11:47 BP 135/63 05/27/22 11:47 Pulse Ox 97 05/27/22 11:47 O2 Del Method 05/27/22 11:47 O2 Flow Rate 2 05/25/22 12:12 BMI result Body Mass Index 23.0 General: AO X 3, no acute distress Resp: wheezing bilateral, no accessory muscles used CVS: S1,S2,RRR GI: soft, non tender, non distended Neuro: motor grossly intact, alert Psych: appropriate affect, appropriate insight Objective Data Active Medications Acetaminophen (Acetaminophen 325 Mg Tablet) 650 mg PO Q6H PRN PRN Reason: Pain, Mild (Pain Scale 1-3) Albuterol Sulfate (Albuterol Sulfate (0.083%) 2.5 Mg/3 Ml Vial.Neb) 2.5 mg INHALE Q4H [facility] Last Admin: 05/27/22 11:34 Dose: 2.5 mg Documented By: RODRIGUEZ Albuterol Sulfate (Albuterol Sulfate (0.083%) 2.5 Mg/3 Ml Vial.Neb) 2.5 mg INHALE Q2H PRN PRN Reason: Wheezing Atorvastatin Calcium (Atorvastatin Calcium 40 Mg Tablet) 40 mg PO MOWEFR@2100 [facility] Last Admin: 05/25/22 21:25 Dose: 40 mg Documented By: IFTIKHAR Diazepam (Diazepam 5 Mg Tablet) 5 mg PO BID PRN PRN Reason: Anxiety and Sleep Last Admin: 05/26/22 21:55 Dose: 5 mg Documented By: IFTIKHAR Ferrous Sulfate (Ferrous Sulfate 324 Mg Tablet.) 324 mg PO DAILY [facility] Last Admin: 05/27/22 08:29 Dose: 324 mg Documented By: ABE Furosemide (Furosemide 20 Mg Tablet) 20 mg PO BID@0900,1800 [facility]; Protocol Last Admin: 05/27/22 08:29 Dose: 20 mg Documented By: ABE Ceftriaxone Sodium 1 gm/ (Sodium Chloride) 50 mls @ 100 mls/hr IV Q24H [facility] Last Infusion: 05/26/22 17:40 Dose: 0 mls/hr Documented By: BAE Doxycycline Hyclate 100 mg/ (Sodium Chloride) 250 mls @ 166.67 mls/hr IV Q12H [facility] Last Infusion: 05/27/22 08:36 Dose: 0 mls/hr Documented By: ABE Levothyroxine Sodium (Levothyroxine Sodium 25 Mcg Tablet) 25 mcg PO MOTUWETHFR@0600 [facility] Last Admin: 05/27/22 06:15 Dose: 25 mcg Documented By: IFTIKHAR Levothyroxine Sodium (Levothyroxine Sodium 50 Mcg Tablet) 50 mcg PO SUSA@0600 [facility] Loperamide HCl (Loperamide Hcl 2 Mg Capsule) 2 mg PO Q6H PRN PRN Reason: Diarrhea Loratadine (Loratadine 10 Mg Tablet) 10 mg PO BEDTIME [facility] Last Admin: 05/26/22 21:04 Dose: Not Given Documented By: IFTIKHAR Non-Admin Reason: Patient Refused Magnesium Hydroxide (Milk Of Magnesia 30 Ml Oral.Susp) 30 ml PO DAILY PRN PRN Reason: constipation Meclizine HCl (Meclizine Hcl 25 Mg Tablet) 25 mg PO DAILY PRN PRN Reason: Dizziness Methylprednisolone Sodium Succinate (Methylprednisolone Sod Succ 40 Mg/Ml Vial) 40 mg IVPUSH Q12H [facility] Last Admin: 05/27/22 03:27 Dose: 40 mg Documented By: IFTIKHAR Metoprolol Succinate (Metoprolol Succinate Er 25 Mg Tab.Er.24h) 25 mg PO BID [facility]; Protocol Last Admin: 05/27/22 08:29 Dose: 25 mg Documented By: ABE Montelukast Sodium (Montelukast Sodium 10 Mg Tablet) 10 mg PO BEDTIME [facility] Last Admin: 05/26/22 20:36 Dose: 10 mg Documented By: IFTIKHAR Pt Own (Fluticasone/Salmeterol 230 Mcg/21mcg (Advair Hfa) 2 Puff) 2 puff INHALE RBID [facility] Last Admin: 05/27/22 11:41 Dose: 2 puff Documented By: RODRIGUEZ Omeprazole (Omeprazole 40 Mg Capsule.Dr) 40 mg PO DAILY@0630 [facility] Last Admin: 05/27/22 11:19 Dose: 40 mg Documented By: ABE Ondansetron HCl (Ondansetron Hcl 4 Mg/2 Ml Vial) 4 mg IVPUSH Q8H PRN PRN Reason: Nausea and Vomiting Oseltamivir Phosphate (Oseltamivir Phosphate 30 Mg Capsule) 30 mg PO BID [facility] Stop: 05/30/22 21:01 Last Admin: 05/27/22 08:31 Dose: Not Given Documented By: ABE Non-Admin Reason: Patient Refused Pharmacy Consult (Consult Rx Perform Med Rec) 1 each MISCELLANE ONCE PRN PRN Reason: Consult order Sodium Chloride (0.9 % Sodium Chloride Flush 3 Ml Syringe) 3 ml IVFLUSH QSHIFT [facility] Last Admin: 05/27/22 08:33 Dose: 3 ml Documented By: ABE Sodium Chloride (Sodium Chloride 0.65 % Nasal 44 Ml Sprbtl) 1 spray NOSTRIL-B Q1H PRN PRN Reason: Dry Nasal Passages Last Admin: 05/26/22 21:58 Dose: 1 spray Documented By: IFTIKHAR Trazodone HCl (Trazodone Hcl 100 Mg Tablet) 100 mg PO BEDTIME [facility] Last Admin: 05/26/22 20:36 Dose: 100 mg Documented By: IFTIKHAR Warfarin Sodium (Warfarin Sodium 0.5 Mg Halftab) 1.5 mg PO DAILY@1800 [facility] Last Admin: 05/26/22 17:41 Dose: 1.5 mg Documented By: ABE Labs CBC & Chem 7: 05/27/22 05:25 05/27/22 05:25 Labs: Laboratory Results - last 24 hr 05/27/22 05/27/22 05/27/22 05:25 05:25 05:25 MCV 97.2 MCH 31.8 MCHC 32.8 RDW 13.1 Plt Count 281 MPV 11.4 Immature Gran % (Auto) 1.5 H Neut % (Auto) 92.3 H Lymph % (Auto) 2.3 L [place] % (Auto) 3.7 Eos % (Auto) 0.0 Baso % (Auto) 0.2 Lymph # (Auto) 0.5 L [place] # (Auto) 0.8 Eos # (Auto) 0.0 Baso # (Auto) 0.1 Abs Immat Gran (auto) 0.33 H Absolute Neuts (auto) 20.0 H Absolute Nucleated RBC 0.000 Nucleated RBC % (auto) 0.0 Smear Tech's Comments VERIFIED PT 23.5 H INR 2.0 H Anion Gap 16 Estim Creat Clear Calc 48.4 Estimated GFR > 60 Random Glucose 149 H Calcium 9.5 Microbiology Microbiology Results: Microbiology 05/25/22 15:45 Blood Culture - Preliminary Blood - Venous No growth after 24 hours. 05/25/22 14:30 Blood Culture - Preliminary Blood - Venous No growth after 24 hours. Assessment and Plan (1) Pneumonia: Status: Acute (2) Acute and chronic respiratory failure with hypoxia: Status: Acute (3) COPD exacerbation: Status: Acute (4) Right lower lobe pneumonia: Status: Acute (5) CHF exacerbation: Status: Acute Plan 77-year-old female with history of coronary artery disease s/p NSTEMI, HFpEF, history subarachnoid hemorrhage, insomnia, antiphospholipid antibody syndrome, hypogammaglobulinemia, COPD/overlap syndrome compliant with BiPAP and chronic hypoxic respiratory failure using 2 L supplemental O2 as needed for dyspnea, pulmonary hypertension, complex regional pain syndrome of the bilateral lower extremities, PAD, and history of non-small cell lung cancer S/p chemo radiation and left upper lobe lobectomy, and history of PE anticoagulated with Coumadin presented with sob, found to have hypoxia, opacity on CXR and positive flu acute on chronic hypoxemic respiratory failure-secondary to COPD with acute decompensation, and flu A, and possible right lower lobe pneumonia now on room air continue steroids, bronchodilators, rocephin, doxy, not interested in tamiflu acute on chronic diastolic chf now back on po lasix CAD warfarin, statin history pulmonary embolism continue Coumadin follow INR.? 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
--- NOTE | 2022-05-27 14:21 | MHC.CM.PN ---
STILL ACUTE. NO PLAN FOR DC TODAY
[2022-05-27] MEDS: cefTRIAXone sodium 1 GM in 0.9 % Sodium Chloride 50 ML IV (15:47)
--- NOTE | 2022-05-27 17:09 | PC.NURSE ---
pt refusing to take coumadin. Dr Singh made aware.
[2022-05-27] MEDS: Montelukast Sodium 10 MG TABLET PO (20:27)
[2022-05-27] MEDS: Loratadine 10 MG TABLET PO (20:27)
[2022-05-27] MEDS: traZODone HCL 100 MG TABLET PO (20:27)
[2022-05-27] MEDS: Atorvastatin Calcium 40 MG TABLET PO (20:27)
[2022-05-27] MEDS: diazePAM 5 MG TABLET PO (23:34)
[2022-05-28] VITALS (9 sets, daily range): BP systolic 114–135; BP diastolic 57–67; PULSE 78–92; RESP 14–18; TEMP 36–36.5; O2SAT 93–98
[2022-05-28] MEDS: guaiFEN/Codeine SF 200/20/10ML 10 ML LIQUID 5 ML PO ×3 (01:56→22:38)
[2022-05-28] MEDS: methylPREDNISolone Sod Succ 40 MG/ML VIAL IVPUSH ×2 (03:22→16:50)
[2022-05-28] MEDS: Albuterol Sulfate (0.083%) 2.5 MG/3 ML VIAL.NEB INHALE ×5 (03:44→21:52)
[2022-05-28] MEDS: Levothyroxine Sodium 50 MCG TABLET PO (05:41)
[2022-05-28] MEDS: Omeprazole 40 MG CAPSULE.DR PO (05:41)
[2022-05-28] MEDS: Doxycycline Hyclate 100 MG in 0.9 % Sodium Chloride 250 ML 166.67 MG IV (05:41)
[2022-05-28 06:33] LABS: MANUAL DIFF FLAG NO
[2022-05-28 06:43] LABS: Basophils Percent Auto 0.2 % (0-2); Eosinophils Percent Auto 0.1 % (0-4); Hematocrit 32.8 % (37.0-47.0); Hemoglobin 10.9 g/dl (12.0-16.0); Imm Gran Abs Auto 0.47 X10*3/uL (0.00-0.03); Imm Gran Pct Auto 2.5 % (0.0-0.4); Lymphocytes Absolute Auto 0.3 X10*3/uL (1.2-4.9); Lymphocytes Percent Auto 1.7 % (20-40); Mean Corpuscular HGB Conc 33.2 g/dl (31.0-35.0); Mean Corpuscular Hemoglobin 32.1 pg (27.0-33.0); Mean Corpuscular Volume 96.5 fL (80.0-98.0); Mean Platelet Volume 10.9 fL (9.4-12.3); Monocytes Absolute Auto 1.1 X10*3/uL (0.1-1.2); Monocytes Percent Auto 5.6 % (2-11); Neutrophils Absolute Auto 17.1 x10*3/uL (2.0-8.3); Neutrophils Percent Auto 89.9 % (45-73); Platelet Count 290 X10*3/uL (160-400); Red Cell Distribution Width 13.2 % (11.0-16.0); White Blood Count 19.1 X10*3/uL (4.8-10.8)
[2022-05-28 06:50] LABS: Hematocrit 33.6 % (37.0-47.0); Mean Corpuscular HGB Conc 32.7 g/dl (31.0-35.0); Mean Corpuscular Hemoglobin 31.6 pg (27.0-33.0); Mean Corpuscular Volume 96.6 fL (80.0-98.0); Mean Platelet Volume 10.9 fL (9.4-12.3); Platelet Count 297 X10*3/uL (160-400); Red Blood Count 3.48 X10*6/uL (4.20-5.50); Red Cell Distribution Width 13.1 % (11.0-16.0); White Blood Count 19.1 X10*3/uL (4.8-10.8)
[2022-05-28 06:55] LABS: INTERNATIONAL NORM RATIO 2.4 (0.9-1.1); Prothrombin Time 28.2 SEC (10.0-13.1)
[2022-05-28 07:02] LABS: Anion Gap 14 (12-20); Blood Urea Nitrogen 17 mg/dL (9-16); Calcium 9.6 mg/dL (8.4-10.2); Carbon Dioxide 28 mmol/L (22-29); Chloride 99 mmol/L (96-108); Creatinine Clr Calc Pharmacy 47.1; Estimated Glomerular Filt Rate > 60; Glucose Fasting 154 mg/dL (60-99); Glucose Random 155 mg/dL (60-115); Potassium 3.7 mmol/L (3.3-5.1); Sodium 137 mmol/L (135-145)
[2022-05-28] MEDS: Metoprolol Succinate ER 25 MG TAB.ER.24H PO ×2 (08:28→20:04)
[2022-05-28] MEDS: Furosemide 20 MG TABLET PO ×2 (08:28→16:50)
[2022-05-28] MEDS: Ferrous Sulfate 324 MG TABLET.DR PO (08:28)
[2022-05-28] MEDS: 0.9 % Sodium Chloride Flush 3 ML SYRINGE IVFLUSH ×3 (08:29→20:04)
--- NOTE | 2022-05-28 08:57 | HO.PM.IMPN ---
Subjective Subjective Date of Service: 05/28/22 Physical Exam Vital Signs: Vital Signs: Last Vital Signs Temp 97.7 F 05/28/22 08:00 Pulse 90 05/28/22 08:00 Resp 18 05/28/22 08:00 BP 134/67 05/28/22 08:00 Pulse Ox 18 L 05/28/22 08:00 O2 Del Method 05/28/22 08:00 O2 Flow Rate 2 05/28/22 04:00 BMI result Body Mass Index 23.0 Objective Data Active Medications Acetaminophen (Acetaminophen 325 Mg Tablet) 650 mg PO Q6H PRN PRN Reason: Pain, Mild (Pain Scale 1-3) Albuterol Sulfate (Albuterol Sulfate (0.083%) 2.5 Mg/3 Ml Vial.Neb) 2.5 mg INHALE Q4H [facility], [facility] Last Admin: 05/28/22 07:56 Dose: 2.5 mg Documented By: ARMINDA Albuterol Sulfate (Albuterol Sulfate (0.083%) 2.5 Mg/3 Ml Vial.Neb) 2.5 mg INHALE Q2H PRN PRN Reason: Wheezing Atorvastatin Calcium (Atorvastatin Calcium 40 Mg Tablet) 40 mg PO MOWEFR@2100 [facility], [facility]1983 Last Admin: 05/27/22 20:27 Dose: 40 mg Documented By: NIXON Diazepam (Diazepam 5 Mg Tablet) 5 mg PO BID PRN PRN Reason: Anxiety and Sleep Last Admin: 05/27/22 23:34 Dose: 5 mg Documented By: NIXON Diazepam (Diazepam 5 Mg Tablet) 5 mg PO BID PRN PRN Reason: Anxiety Ferrous Sulfate (Ferrous Sulfate 324 Mg Tablet.) 324 mg PO DAILY [facility], [facility] Last Admin: 05/28/22 08:28 Dose: 324 mg Documented By: CORINNA Furosemide (Furosemide 20 Mg Tablet) 20 mg PO BID@0900,1800 [facility], [facility]; Protocol Last Admin: 05/28/22 08:28 Dose: 20 mg Documented By: CORINNA Guaifenesin/Codeine Phosphate (Guaifen/Codeine Sf 200/20/10ml 10 Ml Liquid) 5 ml PO Q6H PRN PRN Reason: cough Last Admin: 05/28/22 01:56 Dose: 5 ml Documented By: NIXON Ceftriaxone Sodium 1 gm/ (Sodium Chloride) 50 mls @ 100 mls/hr IV Q24H [facility], [facility] Last Infusion: 05/27/22 16:39 Dose: 0 mls/hr Documented By: ABE Doxycycline Hyclate 100 mg/ (Sodium Chloride) 250 mls @ 166.67 mls/hr IV Q12H [facility], [facility] Last Infusion: 05/28/22 08:16 Dose: 0 mls/hr Documented By: CORINNA Levothyroxine Sodium (Levothyroxine Sodium 25 Mcg Tablet) 25 mcg PO MOTUWETHFR@0600 [facility], [facility] Last Admin: 05/27/22 06:15 Dose: 25 mcg Documented By: AMIRARISAnita Levothyroxine Sodium (Levothyroxine Sodium 50 Mcg Tablet) 50 mcg PO SUSA@0600 [facility], [facility]1983 Last Admin: 05/28/22 05:41 Dose: 50 mcg Documented By: NIXON Loperamide HCl (Loperamide Hcl 2 Mg Capsule) 2 mg PO Q6H PRN PRN Reason: Diarrhea Loratadine (Loratadine 10 Mg Tablet) 10 mg PO BEDTIME [facility], [facility] Last Admin: 05/27/22 20:27 Dose: 10 mg Documented By: NIXON Magnesium Hydroxide (Milk Of Magnesia 30 Ml Oral.Susp) 30 ml PO DAILY PRN PRN Reason: constipation Meclizine HCl (Meclizine Hcl 25 Mg Tablet) 25 mg PO DAILY PRN PRN Reason: Dizziness Methylprednisolone Sodium Succinate (Methylprednisolone Sod Succ 40 Mg/Ml Vial) 40 mg IVPUSH Q12H [facility], [facility] Last Admin: 05/28/22 03:22 Dose: 40 mg Documented By: NIXON Metoprolol Succinate (Metoprolol Succinate Er 25 Mg Tab.Er.24h) 25 mg PO BID [facility], [facility]; Protocol Last Admin: 05/28/22 08:28 Dose: 25 mg Documented By: CORINNA Montelukast Sodium (Montelukast Sodium 10 Mg Tablet) 10 mg PO BEDTIME [facility] Last Admin: 05/27/22 20:27 Dose: 10 mg Documented By: NIXON Pt Own (Fluticasone/Salmeterol 230 Mcg/21mcg (Advair Hfa) 2 Puff) 2 puff INHALE RBID [facility], [facility]1983 Last Admin: 05/28/22 07:57 Dose: 2 puff Documented By: ARMINDA Omeprazole (Omeprazole 40 Mg Capsule.) 40 mg PO DAILY@0630 [facility], [facility] Last Admin: 05/28/22 05:41 Dose: 40 mg Documented By: NIXON Ondansetron HCl (Ondansetron Hcl 4 Mg/2 Ml Vial) 4 mg IVPUSH Q8H PRN PRN Reason: Nausea and Vomiting Oseltamivir Phosphate (Oseltamivir Phosphate 30 Mg Capsule) 30 mg PO BID [facility] Stop: 05/30/22 21:01 Last Admin: 05/28/22 08:29 Dose: Not Given Documented By: CORINNA Non-Admin Reason: Patient Refused Pharmacy Consult (Consult Rx Perform Med Rec) 1 each MISCELLANE ONCE PRN PRN Reason: Consult order Sodium Chloride (0.9 % Sodium Chloride Flush 3 Ml Syringe) 3 ml IVFLUSH QSHIFT [facility] Last Admin: 05/28/22 08:29 Dose: 3 ml Documented By: CORINNA Sodium Chloride (Sodium Chloride 0.65 % Nasal 44 Ml Sprbtl) 1 spray NOSTRIL-B Q1H PRN PRN Reason: Dry Nasal Passages Last Admin: 05/26/22 21:58 Dose: 1 spray Documented By: IFTIKHAR Trazodone HCl (Trazodone Hcl 100 Mg Tablet) 100 mg PO BEDTIME [facility] Last Admin: 05/27/22 20:27 Dose: 100 mg Documented By: NIXON Warfarin Sodium (Warfarin Sodium 0.5 Mg Halftab) 1.5 mg PO DAILY@1800 [facility] Last Admin: 05/27/22 18:09 Dose: Not Given Documented By: ABE Non-Admin Reason: Patient Refused Labs CBC & Chem 7: 05/28/22 06:13 05/28/22 06:13 Labs: Laboratory Results - last 24 hr 05/28/22 05/28/22 05/28/22 06:13 06:13 06:13 MCV 96.6 96.5 MCH 31.6 32.1 MCHC 32.7 33.2 RDW 13.1 13.2 Plt Count 297 290 MPV 10.9 10.9 Immature Gran % (Auto) 2.5 H Neut % (Auto) 89.9 H Lymph % (Auto) 1.7 L [place] % (Auto) 5.6 Eos % (Auto) 0.1 Baso % (Auto) 0.2 Lymph # (Auto) 0.3 L [place] # (Auto) 1.1 Eos # (Auto) 0.0 Baso # (Auto) 0.0 Abs Immat Gran (auto) 0.47 H Absolute Neuts (auto) 17.1 H Absolute Nucleated RBC 0.000 0.000 Nucleated RBC % (auto) 0.0 0.0 PT INR Anion Gap 14 Estim Creat Clear Calc 47.1 Estimated GFR > 60 Random Glucose 155 H Fasting Glucose 154 H Calcium 9.6 05/28/22 06:13 MCV MCH MCHC RDW Plt Count MPV Immature Gran % (Auto) Neut % (Auto) Lymph % (Auto) [place] % (Auto) Eos % (Auto) Baso % (Auto) Lymph # (Auto) [place] # (Auto) Eos # (Auto) Baso # (Auto) Abs Immat Gran (auto) Absolute Neuts (auto) Absolute Nucleated RBC Nucleated RBC % (auto) PT 28.2 H INR 2.4 H Anion Gap Estim Creat Clear Calc Estimated GFR Random Glucose Fasting Glucose Calcium Microbiology Microbiology Results: Microbiology 05/25/22 15:45 Blood Culture - Preliminary Blood - Venous No growth after 48 hours. 05/25/22 14:30 Blood Culture - Preliminary Blood - Venous No growth after 48 hours. Assessment and Plan (1) Pneumonia: Status: Acute (2) Acute and chronic respiratory failure with hypoxia: Status: Acute (3) COPD exacerbation: Status: Acute (4) Right lower lobe pneumonia: Status: Acute (5) CHF exacerbation: Status: Acute Plan 77-year-old female with history of coronary artery disease s/p NSTEMI, HFpEF, history subarachnoid hemorrhage, insomnia, antiphospholipid antibody syndrome, hypogammaglobulinemia, COPD/overlap syndrome compliant with BiPAP and chronic hypoxic respiratory failure using 2 L supplemental O2 as needed for dyspnea, pulmonary hypertension, complex regional pain syndrome of the bilateral lower extremities, PAD, and history of non-small cell lung cancer S/p chemo radiation and left upper lobe lobectomy, and history of PE anticoagulated with Coumadin presented with sob, found to have hypoxia, opacity on CXR and positive flu acute on chronic hypoxemic respiratory failure-secondary to COPD with acute decompensation, and flu A, and possible right lower lobe pneumonia now on room air continue steroids, bronchodilators, , not interested in tamiflu change Rocephin to Ceftin abd DC Doxy acute on chronic diastolic chf--compensated now back on po lasix CAD statin history pulmonary embolism, continue Coumadin follow INR.? Goal 1.4-2.0 per her wire coiner at [facility] d/t antiphospholipid syndrome hypothyroidism continue levothyroxine non-small cell lung cancer s/p chemo radiation in left upper lobe lobectomy outpatient follow-up Diarrhea GI panel and cdiff negative Immodium prn DVT prophylaxis-on Coumadin- goal INR 1.5-2.0 per her wire coiner full code reason for continued hospitalization:Persistent sob Quality Stroke Does the patient have a stroke diagnosis?: No VTE Prior VTE?: No VTE Risk Level:: Medical - moderate - high VTE Device Contraindication: Treatment Not Indicated VTE Drug Contraindication: N/A - Med Ordered
[2022-05-28] MEDS: diazePAM 5 MG TABLET PO (14:55)
[2022-05-28] MEDS: cefTRIAXone sodium 1 GM in 0.9 % Sodium Chloride 50 ML IV (16:50)
[2022-05-28] MEDS: Doxycycline Hyclate 100 MG in 0.9 % Sodium Chloride 250 ML 166.6 MG IV (17:45)
[2022-05-28] MEDS: Montelukast Sodium 10 MG TABLET PO (20:04)
[2022-05-28] MEDS: traZODone HCL 100 MG TABLET PO (20:04)
[2022-05-28] MEDS: Loratadine 10 MG TABLET PO (20:04)
[2022-05-29] VITALS (7 sets, daily range): BP systolic 117–141; BP diastolic 57–64; PULSE 79–87; RESP 12–18; TEMP 36–37.1; O2SAT 93–97
[2022-05-29] MEDS: methylPREDNISolone Sod Succ 40 MG/ML VIAL IVPUSH (03:57)
[2022-05-29] MEDS: Levothyroxine Sodium 50 MCG TABLET PO (05:42)
[2022-05-29] MEDS: Omeprazole 40 MG CAPSULE.DR PO (05:42)
[2022-05-29] MEDS: Doxycycline Hyclate 100 MG in 0.9 % Sodium Chloride 250 ML 166.67 MG IV (05:42)
[2022-05-29] MEDS: Albuterol Sulfate (0.083%) 2.5 MG/3 ML VIAL.NEB INHALE ×2 (08:13→12:14)
--- NOTE | 2022-05-29 08:25 | P.DS_ITS ---
DS: Providers Provider Date of Service: 05/29/22 Date of admission: 05/25/22 15:41 Primary care physician: Caitlyn Bowie MD DS: Diagnosis Discharge Diagnosis (1) Pneumonia: Status: Acute (2) Acute and chronic respiratory failure with hypoxia: Status: Acute (3) COPD exacerbation: Status: Acute (4) Right lower lobe pneumonia: Status: Acute (5) CHF exacerbation: Status: Acute DS: Summary Hospital Course Hospital Course: Chief Complaint: sob, productive cough 77-year-old female with history of coronary artery disease s/p NSTEMI, HRpEF, history subarachnoid hemorrhage, insomnia, antiphospholipid antibody syndrome, hypogammaglobulinemia, COPD/overlap syndrome compliant with BiPAP and chronic hypoxic respiratory failure using 2 L supplemental O2 as needed for dyspnea, pulmonary hypertension, complex regional pain syndrome of the bilateral lower extremities, PAD, and history of non-small cell lung cancer S/p chemo radiation and left upper lobe lobectomy, and history of PE anticoagulated with Coumadin presented to the ED at the recommendation of her diamond expert, 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? States symptoms have been ongoing for several weeks but worsening over the last 4 days.? She has been noticing increased need for supplemental O2 given oximetry ranging 88-90% on room air.? She tells me she was recently admitted to [facility] on 05/15 for COPD exacerbation and H flu pneumonia was not discharged on any antibiotics.? She has also noted a small amount of diarrhea, about 5 episodes that started yesterday and today.? She has also had fevers up to 102.7 without rigors.? No sore throat, sinus pressure, nasal congestion, nausea, vomiting, abdominal pain, urinary symptoms, palpitations, lightheadedness, or chest pressure.? There is pleuritic chest pain.? She has been completing prednisone taper and took 10 mg this morning.? There is a leukocytosis of 22.1 without left shift.? Lactic acid 1.1.? Renal function baseline with creatinine 1.16, BUN 16, creatinine clearance 32.5.? S odium 132, potassium 4.0, chloride 93, CO2 29.? BNP 232, baseline unclear.? CXR shows small left pleural effusion with layering and probable atelectasis versus infiltrates.? CT chest shows a new oval density within the right lower lobe with other regions of ill-defined airspace disease likely inflammatory in nature.? Follow-up imaging recommended.? Discharge summary from [facility] has been recommended.? Patient to be admitted for acute COPD exacerbation with acute on chronic hypoxemic respiratory failure and probable right middle lobe pneumonia. Hospital course: Patient was admitted and treated for acute on chronic hypoxemic respiratory failure-secondary to COPD with acute decompensation, and flu A, and possible right lower lobe pneumonia. Pneumonia was treated with IV Doxy and Ceftriaxone, WBC have been high due to steroid, she has no fever, she has some residual viral cough which will be treated with robitussin and tessalon. COPD was treated with IV steroid and bronchodilators by Neb, lungs are now clear, she has no respiratory distress. To continue use of Oxygen and inhalers at home. Influenza treated conservatively.. she declined Tamiflu. Chronic diastolic chf--compensated, continue Lasix CAD ?statin history pulmonary embolism, continue coumadin and target INR as recommended hypothyroidism continue levothyroxine non-small cell lung cancer s/p chemo radiation in left upper lobe lobectomy outpatient follow-up Diarrhea GI panel and cdiff? negative resolved. Time Spent with Patient Time attestation: Total time spent providing and/or coordinating discharge services: Discharge coordination time: Greater than 30 minutes Quality: Safe Use of Opioids Does Pt have an Active Cancer Diagnosis on the Problem List?: Yes Opioid Measure Date for [facility] Report: 04/29/22 Opioid Measure Time for [facility] Report: 08:51 Quality: Stroke Does the patient have a stroke diagnosis?: No Physical Exam Vital Signs: Vital Signs: Last Vital Signs Temp 96.8 F 05/29/22 03:35 Pulse 85 05/29/22 08:16 Resp 18 05/29/22 08:16 BP 141/61 H 05/29/22 03:35 Pulse Ox 97 05/29/22 03:35 O2 Del Method 05/29/22 03:35 O2 Flow Rate 2 05/29/22 03:35 Oxygen Flow Rate 2 05/29/22 04:00 BMI result Body Mass Index 23.0 DS: Data Data Completed and Pending Labs on day of discharge: Preliminary micro results at discharge 05/25/22 15:45 Blood Culture - Preliminary Blood - Venous No growth after 48 hours. 05/25/22 14:30 Blood Culture - Preliminary Blood - Venous No growth after 48 hours. Discharge Plan Discharge Anticipated Discharge Date/Time: 05/29/22 08:18 Patient Disposition: Home Health Service Discharge Diagnosis: Acute hypoxic respiratory failure d/t copd, and influenza Referrals: Caitlyn Bowie MD [Primary Care Provider] - 1 Week Discharge Medications: New benzonatate 100 mg capsule 100 mg PO BID PRN (Reason: cough) Qty: 14 0RF cefuroxime axetil 500 mg tablet 500 mg PO BID 2 Days Qty: 4 0RF prednisone 20 mg tablet 20 mg PO DAILY Qty: 2 0RF guaifenesin 100 mg/5 mL liquid 200 mg PO Q6H PRN (Reason: cough) Qty: 500 0RF Continued albuterol sulfate 2.5 mg /3 mL (0.083 %) solution for nebulization 2.5 mg inhalation QID 30 Days Qty: 360 11RF albuterol sulfate 90 mcg/actuation HFA aerosol inhaler 2 puff PO Q6H PRN (Reason: shortness of breath or wheezing) 90 Days Qty: 3 0RF montelukast 10 mg tablet 10 mg PO DAILY Qty: 90 3RF trazodone 50 mg tablet 100 mg PO BEDTIME Qty: 180 3RF Advair HFA 230-21 mcg/actuation HFA aerosol inhaler 2 puff inhalation BID Qty: 36 1RF doxycycline monohydrate 100 mg tablet 100 mg PO BID 10 Days Qty: 20 0RF levothyroxine [Synthroid] 25 mcg tablet 50 mcg PO SUSA@0600 ferrous gluconate 324 mg (38 mg iron) tablet 1 tab PO QAM prednisone 10 mg tablet 10 mg PO DAILY rosuvastatin 10 mg tablet 10 mg PO MOWEFR@2100 warfarin 1 mg tablet 1.5 mg PO DAILY Rx Instructions: INR RANGE 1.5-2 DUE TO ANTIPHOSPHLIPID SYNDROME diazepam 5 mg tablet 5 mg PO BID PRN (Reason: Anxiety and Sleep) meclizine 25 mg tablet 25 mg PO DAILY PRN (Reason: Dizziness) levothyroxine 25 mcg tablet 25 mcg PO MOTUWETHFR@0600 Rx Instructions: Mon-Monday 25mcg Monday and Monday 50mcg furosemide 20 mg tablet 20 mg PO DAILY metoprolol succinate 25 mg tablet extended release 24 hr 25 mg PO BID levocetirizine 5 mg tablet 5 mg PO BEDTIME Discharge Orders: Discharge Order (Routine); Ordered 05/29/22 Ordered By: River Naik Diet: Advance to usual diet Activity on Discharge: As tolerated Stand Alone Forms: Patient Portal Discharge page Care Plan Goals: Full recovery from flu and copd Health Concerns: Influenza (Flu) COPD Cough Pneumonia Plan of Treatment: Take Cefuroxime (Ceftin) antibiotic for pneumonia take prednisone 20 for 2 days Take Robitussin and Tessalon for cough Use inhalers as before Follow up with your doctor in a week Assessment: As above
--- NOTE | 2022-05-29 08:34 | P.F2F_ITS ---
Service Date Service Date: 05/29/22 Encounter Date of encounter: 05/29/22 Reasons for Services Signs and symptoms assessed: Shortness of with minimal efffor Reason for care home: medication treatment and teach disease management Homebound: Leaving the home is medically contraindicated at this time without the asist of a device and/or another person due th the listed conditions above and below. Reason homebound: weakness related to hospital stay Homebound supporting statement: Homebound due to weakness related to hospitalization, shortness of breath with minimal effort and therefore needs the assistance of another person Certification: Based on the above findings, I certify that this patient is confined to the home and needs intermittent care home care, physical therapy and/or speech therapy, or continues to need occupational therapy. The patient is under my care, and I have initiated the establishment of the plan of care. The patient will be followed by a physician who will periodically review the plan of care.
[2022-05-29] MEDS: Furosemide 20 MG TABLET PO (09:41)
[2022-05-29] MEDS: Ferrous Sulfate 324 MG TABLET.DR PO (09:42)
[2022-05-29] MEDS: Metoprolol Succinate ER 25 MG TAB.ER.24H PO (09:42)
[2022-05-29] MEDS: guaiFEN/Codeine SF 200/20/10ML 10 ML LIQUID 5 ML PO (09:42)
[2022-05-29] MEDS: 0.9 % Sodium Chloride Flush 3 ML SYRINGE IVFLUSH (09:42)
[2022-05-29 10:13] LABS: INTERNATIONAL NORM RATIO 2.3 (0.9-1.1); Prothrombin Time 27.6 SEC (10.0-13.1)
== END 2022-05-29 14:46 | disposition home health service (06) | DRG 193 ==
LOC: HO.ED 12:55 → HO.EDOVER 16:13 → HO.S3 19:33
PROVIDERS: Internal Medicine; Nurse Practitioner Family; Physician Assistant Medical; Admitting Provider Physician Assistant; Emergency Provider Emergency Medicine Emergency Medical Services; PCP Internal Medicine; Visit Provider Internal Medicine
DX: J10.08 Influenza due to other identified influenza virus with other specified pneumonia (principal); I21.9 Acute myocardial infarction, unspecified; I50.33 Acute on chronic diastolic (congestive) heart failure; D68.61 Antiphospholipid syndrome; D80.1 Nonfamilial hypogammaglobulinemia; J13 Pneumonia due to Streptococcus pneumoniae; J44.0 Chronic obstructive pulmonary disease with (acute) lower respiratory infection; J44.1 Chronic obstructive pulmonary disease with (acute) exacerbation; I11.0 Hypertensive heart disease with heart failure; E03.9 Hypothyroidism, unspecified; I25.10 Atherosclerotic heart disease of native coronary artery without angina pectoris; E78.5 Hyperlipidemia, unspecified; G47.33 Obstructive sleep apnea (adult) (pediatric); I27.20 Pulmonary hypertension, unspecified; Z92.21 Personal history of antineoplastic chemotherapy; Z92.3 Personal history of irradiation; Z86.711 Personal history of pulmonary embolism; Z85.118 Personal history of other malignant neoplasm of bronchus and lung; Z91.041 Radiographic dye allergy status; Z91.013 Allergy to seafood; Z88.0 Allergy status to penicillin; Z79.01 Long term (current) use of anticoagulants; Z79.899 Other long term (current) drug therapy
CPT/HCPCS: 36415; 71045; 71250; 80048; 80076; 83605; 83880; 84484; 85025; 85027; 85610; 87040; 87493; 87502; 87507; 87633; 87635; 94640; 94660; 99285; J0696; J1940; J2920; J2930

== ENCOUNTER 2022-06-08 11:15 | Outpatient (REF) | payer MEDICARE, SELFPAY ==
[2022-06-08 11:48] LABS: MANUAL DIFF FLAG NO
[2022-06-08 12:16] LABS: Basophils Absolute Auto 0.1 X10*3/uL (0.0-0.2); Basophils Percent Auto 0.4 % (0-2); Eosinophils Percent Auto 0.2 % (0-4); Hematocrit 35.2 % (37.0-47.0); Hemoglobin 11.3 g/dl (12.0-16.0); Imm Gran Abs Auto 0.59 X10*3/uL (0.00-0.03); Imm Gran Pct Auto 3.1 % (0.0-0.4); Lymphocytes Absolute Auto 0.7 X10*3/uL (1.2-4.9); Lymphocytes Percent Auto 3.5 % (20-40); Mean Corpuscular HGB Conc 32.1 g/dl (31.0-35.0); Mean Corpuscular Hemoglobin 31.7 pg (27.0-33.0); Mean Corpuscular Volume 98.9 fL (80.0-98.0); Mean Platelet Volume 10.8 fL (9.4-12.3); Monocytes Percent Auto 5.2 % (2-11); Neutrophils Absolute Auto 16.7 x10*3/uL (2.0-8.3); Neutrophils Percent Auto 87.6 % (45-73); Platelet Count 231 X10*3/uL (160-400); Red Blood Count 3.56 X10*6/uL (4.20-5.50); Red Cell Distribution Width 14.1 % (11.0-16.0); White Blood Count 19.1 X10*3/uL (4.8-10.8)
[2022-06-08 12:44] LABS: Anion Gap 13 (12-20); Blood Urea Nitrogen 13 mg/dL (9-16); Calcium 9.5 mg/dL (8.4-10.2); Carbon Dioxide 27 mmol/L (22-29); Chloride 99 mmol/L (96-108); Estimated Glomerular Filt Rate > 60; Glucose Random 102 mg/dL (60-115); Magnesium 2.5 mg/dL (1.6-2.6); Sodium 135 mmol/L (135-145)
== END 2022-06-08 11:16 | disposition home or self-care (01) ==
LOC: HO.LAB 11:15
PROVIDERS: PCP Internal Medicine; Visit Provider Hospitalist
DX: R91.8 Other nonspecific abnormal finding of lung field (principal); J96.10 Chronic respiratory failure, unspecified whether with hypoxia or hypercapnia; G47.33 Obstructive sleep apnea (adult) (pediatric); J70.1 Chronic and other pulmonary manifestations due to radiation; D68.61 Antiphospholipid syndrome; G47.00 Insomnia, unspecified; I50.30 Unspecified diastolic (congestive) heart failure; R76.8 Other specified abnormal immunological findings in serum; J40 Bronchitis, not specified as acute or chronic
CPT/HCPCS: 36415; 80048; 83735; 85025; 99212

== ENCOUNTER 2022-06-14 05:41 | Inpatient (IN) | payer MEDICARE, SELFPAY ==
[2022-06-14] VITALS (14 sets, daily range): BP systolic 97–184; BP diastolic 57–100; PULSE 85–116; RESP 15–28; TEMP 36.2–36.8; O2SAT 73–99; BMI 23.0
--- NOTE | ~2022-06-14 | XR_ITS ---
EXAMINATION: XR CHEST CLINICAL INFORMATION: Shortness of breath COMPARISON: CT chest 05/25/2022. Chest radiograph 05/25/2022. TECHNIQUE: Frontal view of the chest was obtained. FINDINGS: Moderate blunting of the left costophrenic sulcus is noted. Diffuse fine pulmonary reticular opacities are present along with right lung Elmer B-lines. No pneumothoraces are identified. Left base airspace opacification is present. The cardiac silhouette is normal in size. Moderate aortic calcific atherosclerosis noted. XR/XR chest 1V IMPRESSION: *Findings suspicious for moderate interstitial pulmonary edema asymmetrically prominent within the right lung. *Small left pleural effusion. *Left base atelectasis and/or consolidation.
[2022-06-14] MEDS: methylPREDNISolone Sod Succ 125 MG/2 ML VIAL IVPUSH (06:06)
[2022-06-14] MEDS: Magnesium Sulfate/H2O 2 GM/50 ML PIGGYBACK IV (06:07)
[2022-06-14 06:11] LABS: MANUAL DIFF FLAG NO
[2022-06-14] MEDS: Albuterol/Iprat 2.5/0.5MG 3 ML AMPUL.NEB INHALE ×3 (06:11→19:38)
[2022-06-14 06:21] LABS: Basophils Absolute Auto 0.1 X10*3/uL (0.0-0.2); Basophils Percent Auto 0.6 % (0-2); Eosinophils Absolute Auto 0.2 X10*3/uL (0.0-0.4); Eosinophils Percent Auto 1.4 % (0-4); Hematocrit 43.5 % (37.0-47.0); Hemoglobin 14.2 g/dl (12.0-16.0); Imm Gran Abs Auto 0.28 X10*3/uL (0.00-0.03); Imm Gran Pct Auto 2.1 % (0.0-0.4); Lymphocytes Absolute Auto 2.8 X10*3/uL (1.2-4.9); Lymphocytes Percent Auto 21.1 % (20-40); Mean Corpuscular HGB Conc 32.6 g/dl (31.0-35.0); Mean Platelet Volume 10.5 fL (9.4-12.3); Monocytes Absolute Auto 1.1 X10*3/uL (0.1-1.2); Monocytes Percent Auto 8.3 % (2-11); NRBC Pct Auto 0.2 /100WBC (0.0-0.2); Neutrophils Absolute Auto 8.9 x10*3/uL (2.0-8.3); Neutrophils Percent Auto 66.5 % (45-73); Platelet Count 265 X10*3/uL (160-400); Red Blood Count 4.44 X10*6/uL (4.20-5.50); Red Cell Distribution Width 14.6 % (11.0-16.0); White Blood Count 13.3 X10*3/uL (4.8-10.8)
[2022-06-14 06:24] LABS: Lactic Acid 2.8 mmol/L (0.5-2.0)
[2022-06-14 06:26] LABS: Alanine Aminotransferase 21 U/L (0-31); Albumin Level 3.9 g/dL (3.5-5.0); Alkaline Phosphatase 65 U/L (39-117); Anion Gap 14 (12-20); Aspartate Amino Transferase 22 U/L (5-31); Bilirubin Total 0.6 mg/dL (0.0-1.0); Blood Urea Nitrogen 25 mg/dL (9-16); Calcium 10.7 mg/dL (8.4-10.2); Carbon Dioxide 28 mmol/L (22-29); Chloride 100 mmol/L (96-108); Creatinine Clr Calc Pharmacy 42.3; Estimated Glomerular Filt Rate > 60; Glucose Random 167 mg/dL (60-115); Potassium 4.7 mmol/L (3.3-5.1); Sodium 137 mmol/L (135-145)
[2022-06-14 06:34] LABS: Troponin-I High Sensitivity 17.7 ng/L (<3.5-17.0)
[2022-06-14 06:49] LABS: Influenza A PCR NEGATIVE (Negative); Influenza B PCR NEGATIVE (Negative); Resp Syncy Virus RNA Qual PCR NEGATIVE (Negative); SARS COV2 PCR INHOUSE NEGATIVE (Negative)
--- NOTE | 2022-06-14 07:07 | ED_ITS ---
HPI - General Adult General Chief complaint: Upper Respiratory Symptoms Stated complaint: sob hx copd Time Seen by Provider: 06/14/22 05:52 Source: patient, EMS and old records reviewed Mode of arrival: EMS Limitations: no limitations History of Present Illness HPI narrative: 77-year-old female with history of CAD, CHF with preserved ejection fracture, recently was admitted to the hospital for pneumonia and acute on chronic respiratory failure with hypoxia patient also is known to have COPD use 3 L of supplemental oxygen at home, patient was sent home on doxycycline patient is allergic to most of antibiotic otherwise, patient started to have shortness of breath since last night, on 91 arrival patient was hypoxic 83% with 3 L of oxygen that was improved by non-rebreather during transportation, on arrival patient was in acute respiratory distress patient was placed on BiPAP while she is in the emergency department physical exam was consistent with CHF and COPD exacerbation with possible pneumonia. Related Data Home Medications Medication Instructions Recorded Confirmed warfarin 1 mg tablet 1.5 mg PO DAILY 05/06/20 05/25/22 diazepam 5 mg tablet 5 mg PO BID PRN Anxiety and Sleep 11/26/20 05/25/22 meclizine 25 mg tablet 25 mg PO DAILY PRN Dizziness 11/26/20 05/25/22 metoprolol succinate 25 mg 25 mg PO BID 09/29/21 05/25/22 tablet,extended release 24 hr furosemide 20 mg tablet 20 mg PO DAILY swelling 03/30/22 05/25/22 ferrous gluconate 324 mg (38 mg 1 tab PO QAM 05/25/22 05/25/22 iron) tablet levothyroxine 25 mcg tablet 50 mcg PO SUSA@0600 05/25/22 05/25/22 (Synthroid) prednisone 10 mg tablet 10 mg PO DAILY 05/25/22 05/25/22 rosuvastatin 10 mg tablet 10 mg PO MOWEFR@2100 05/25/22 05/25/22 Previous Rx's Medication Instructions Recorded albuterol sulfate 2.5 mg/3 mL 2.5 mg (3 mL) inhalation QID 30 08/10/20 (0.083 %) solution for nebulization days #360 mL albuterol sulfate 90 mcg/actuation 2 puff PO Q6H PRN shortness of 06/14/21 aerosol inhaler breath or wheezing 90 days #3 ea montelukast 10 mg tablet 10 mg PO DAILY #90 tabs 06/24/21 trazodone 50 mg tablet 100 mg PO BEDTIME #180 tabs 06/24/21 Advair HFA 230 mcg-21 2 puff inhalation BID #36 grams 12/23/21 mcg/actuation aerosol inhaler (fluticasone propion-salmeterol) doxycycline monohydrate 100 mg 100 mg PO BID 10 days #20 tabs 05/23/22 tablet benzonatate 100 mg capsule 100 mg PO BID PRN cough #14 caps 05/29/22 guaifenesin 100 mg/5 mL oral liquid 200 mg (10 mL) PO Q6H PRN cough 05/29/22 #500 mL prednisone 20 mg tablet 20 mg PO DAILY #2 tabs 05/29/22 gabapentin 100 mg capsule 100 mg PO BEDTIME 30 days #30 caps 06/08/22 levocetirizine 5 mg tablet 5 mg PO BEDTIME allergies 30 days 06/08/22 #30 tabs Allergies Allergy/AdvReac Type Severity Reaction Status Date / Time avocado [AVOCADO] Allergy Mild ITCHY Verified 06/08/22 10:22 THROAT, RASH azithromycin [AZITHROMYCIN] Allergy Mild ITCHY Verified 06/08/22 10:22 THROAT, RASH barium iodide [BARIUM IODIDE] Allergy Mild ITCHY Verified 06/08/22 10:22 THROAT, RASH barium sulfate Allergy Mild Itch Verified 06/08/22 10:22 bee pollen [BEE STINGS] Allergy Mild ITCHY Verified 06/08/22 10:22 THROAT, RASH ciprofloxacin [From CIPRO] Allergy Mild ITCHY Verified 06/08/22 10:22 THROAT, RASH clarithromycin [From BIAXIN] Allergy Mild ITCHY Verified 06/08/22 10:22 THROAT, RASH diatrizoate meglumine Allergy Mild ITCHY Verified 06/08/22 10:22 [From GASTROGRAFIN] THROAT, RASH diatrizoate sodium Allergy Mild ITCHY Verified 06/08/22 10:22 [From GASTROGRAFIN] THROAT, RASH diclofenac [From VOLTAREN] Allergy Mild ITCHY Verified 06/08/22 10:22 THROAT, RASH erythromycin base Allergy Mild ITCHY Verified 06/08/22 10:22 [ERYTHROMYCIN BASE] THROAT, RASH gentamicin [GENTAMICIN] Allergy Mild ITCHY Verified 06/08/22 10:22 THROAT, RASH Iodinated Contrast Media Allergy Mild ITCHY Verified 06/08/22 10:22 [IVP DYE] THROAT, RASH levofloxacin [From LEVAQUIN] Allergy Mild ITCHY Verified 06/08/22 10:22 THROAT, RASH metronidazole [From FLAGYL] Allergy Mild ITCHY Verified 06/08/22 10:22 THROAT, RASH moxifloxacin [From AVELOX] Allergy Mild ITCHY Verified 06/08/22 10:22 THROAT, RASH Penicillins [PENICILLINS] Allergy Mild ITCHY Verified 06/08/22 10:22 THROAT, RASH shrimp [SHRIMP] Allergy Mild ITCHY Verified 06/08/22 10:22 THROAT, RASH Sulfa (Sulfonamide Allergy Mild ITCHY Verified 06/08/22 10:22 Antibiotics) THROAT, [SULFA (SULFONAMIDE RASH ANTIBIOTICS)] vancomycin [VANCOMYCIN] Allergy Mild ITCHY Verified 06/08/22 10:22 THROAT, RASH Review of Systems Review of Systems: All other systems are reviewed and are negative Constitutional: Reports as per HPI and Reports no additional constitutional complaints Eyes: Reports as per HPI and Reports no additional eye complaints Reports system reviewed and no additional complaints, except as documented Cardiovascular: Reports as per HPI and Reports no additional cardiovascular complaints Respiratory: Reports as per HPI and Reports no additional respiratory complaints Gastrointestinal: Reports as per HPI and Reports no additional gastrointestinal complaints Genitourinary: Reports no additional female genitourinary complaints Musculoskeletal: Reports no additional musculoskeletal complaints Skin/Breast: Reports system reviewed and no additional complaints, except as docu Psychiatric: Reports no additional psychiatric complaints Endocrine: Reports no additional endocrine complaints Hematologic/Lymphatic: Reports no additional hematologic/lymphatic complaints Allergic/Immunologic: Reports no additional allergic/immunologic complaints Reports system reviewed and no additional complaints, except as documented and Reports Abnormal speech present [facility] Past Medical History Medical History (HFpEF) heart failure with preserved ejection fraction CLARA positive Anti-phospholipid antibody syndrome Antiphospholipid antibody syndrome Arterial insufficiency of lower extremity Blood D-dimer assay positive Chest pain Chronic respiratory failure Complex regional pain syndrome i of right lower limb COPD (chronic obstructive pulmonary disease) COVID-19 Diverticulitis Dyspnea Dysuria Hypogammaglobulinemia Insomnia Lung cancer Mid sternal chest pain Mycobacterial disease NSTEMI (non-ST elevated myocardial infarction) KANDY treated with BiPAP Pericardial effusion Pleural effusion Pneumonitis Post herpetic neuralgia Pulmonary emboli Pulmonary hypertension Pulmonary nodules Radiation fibrosis of lung Subarachnoid bleed Tracheobronchitis URI (upper respiratory infection) Surgical History H/O: hysterectomy History of cardiac cath Hx of tonsillectomy Family History Family History Sister No problems noted. Mother Cardiovascular disease Daughter Tachycardia Other KANDY (obstructive sleep apnea) Social History Social History Household Members: None Housing: House Do you presently have visiting nurse or other home services: No Alcohol intake: never Patient Tobacco Use Status: Never used Tobacco Smoked in Last 30 Days: No Second Hand Smoke Exposure: No Advance Directives: No service: No Current occupational status: retired Physical Exam ED Vital Signs: Vital Signs - 24 hr 06/14/22 05:44 06/14/22 06:12 06/14/22 06:13 Temperature 97.7 F Pulse Rate 116 H 104 H Respiratory Rate 20 26 H 22 H Blood Pressure 184/95 H Pulse Oximetry 73 L Oxygen Delivery Method Room Air Oxygen Flow Rate 06/14/22 06:56 06/14/22 07:29 Temperature Pulse Rate 101 H Respiratory Rate 23 H Blood Pressure 132/80 Pulse Oximetry 97 99 Oxygen Delivery Method CPAP BiPAP Oxygen Flow Rate 45 BMI result Body Mass Index 23.0 Vital signs have been reviewed as appeared to be correct. Blood pressure normal. Heart rate elevated, Respiration rate elevated. Temperature normal. Oxygen saturation normal. Appearance: Alert. Oriented X3. acute moderate respiratory distress. Head: Normal external exam. Normocephalic. Atraumatic. No Kim signs noted. No raccoon eyes noted Eyes: PERRLA. EOMI. Conjunctiva and sclera normal. Eyelids normal. ENT: TM's Normal. Pharynx normal. Uvula midline. Moist mucous membranes. No trismus noted. No drooling noted. No muffled voice noted. Neck: Normal inspection. Neck supple. FROM. No adenopathy. Thyroid Normal. No meningeal signs. No neck mass noted. CVS: Normal heart rate and rhythm. Heart sound normal. No murmurs noted. Pulses normal throughout. Respiratory: Acute moderate respiratory distress. Painless inspiration. Breath sounds normal. Expiratory wheezing with prolonged expiration, bilateral rales bilaterally up to 1/3 lung field.. Chest nontender. No accessory muscle usage noted or decreased air movement noted. Abdomen: Soft and nontender. Bowel sounds normal in all 4 quadrants. No distention noted. No organomegaly noted. No visible injury noted. Back: No CVA tenderness. Full range of motion noted. Skin: Skin warm and dry. Normal skin color. Normal skin turgor. No christy hes/lesions/lacerations noted. Extremities: No lower extremity edema. Extremities exhibit normal range of motion. Extremities nontender. Neuro: Oriented X 3. Cranial nerve exam: II-XII are grossly intact No motor deficit. No sensory deficit. Reflexes normal. Course Course Course Narrative: 77-year-old female with COPD exacerbation/pneumonia/congestive heart failure meeting criteria for severe sepsis patient require BiPAP machine in the ED, because congestive heart failure will not give the patient fluid please refer to sepsis sheet. Reevaluation(s) Reevaluation #1: Patient signed out to Dr. Penaloza at 07:00, plan as attempt to wean off BiPAP and admit. Time: 07:34 Medications Administered Generic Name Dose Route Start Last Admin Trade Name Freq PRN Reason Stop Dose Admin Magnesium Sulfate 2 gm in 50 mls @ 25 mls/hr 06/14/22 05:53 06/14/22 06:07 Magnesium Sulfate/H2o IV 06/14/22 07:52 25 mls/hr ONCE ONE Administration Discontinued Medications Generic Name Dose Route Start Last Admin Trade Name Freq PRN Reason Stop Dose Admin Albuterol/Ipratropium 3 ml 06/14/22 05:54 06/14/22 06:11 Albuterol/Iprat 2.5/0.5mg 3 Ml Ampul.Neb INHALE 06/14/22 05:55 3 ml ONCE ONE Administration Methylprednisolone Sodium Succinate 125 mg 06/14/22 05:53 06/14/22 06:06 Methylprednisolone Sod Succ 125 Mg/2 Ml Vial IVPUSH 06/14/22 05:54 125 mg ONCE ONE Administration Medical Decision Making Medical Decision Making Differential Diagnoses: Differential diagnosis Differential Diagnosis: The differential diagnosis associated with the patient?s presentation includes: CHF/COPD/pneumonia/acute on chronic respiratory failure. Consideration of admission/observation: Consideration of Admission/Observation (Hospitalist) Escalation of care admission/observation considered: Escalation of care including admission/observation considered Independent interpretation of EKG, rhythm strip, radiology study: Independent interp EKG,rhythm strip, radiology study I performed an independent interpretation of the: Plain X-Ray (Chest) My interpretation is *Findings suspicious for moderate interstitial pulmonary edema asymmetrically prominent within the right lung. *Small left pleural effusion. *Left base atelectasis and/or consolidation. ? Critical Care Time Critical Care Time Critical Care Time: Yes Total Critical Care Time: 60 Attestation: I spent 60 minutes providing critical care service to the patient, this including time spent at the bedside to evaluate the patient, reassess the patient, monitoring vital signs, review labs, and radiographic studies, counseling the patient/family, discussing the case with consultants, disposition the patient. Discharge Plan Discharge Clinical Impression: COPD (chronic obstructive pulmonary disease), CHF (congestive heart failure), Acute and chronic respiratory failure Patient Disposition: Admitted As Inpatient
--- NOTE | 2022-06-14 07:26 | PC.NURSE ---
pt is a/o x 4 no sob/vahid noted pt is speaking in full sentences. pt is on bipap at 12/6 at 45%. lungs - coarse exp wheezing all lobes. heart sounds regular. abd soft and non-tender. bs + x 4 quads. no edema noted. c/o r shoulder pain 5/10. pt is aware of plan of care. md aware.
--- NOTE | 2022-06-14 07:27 | ECG_ITS ---
Test Reason : SOB Blood Pressure : / mmHG Vent. Rate : 108 BPM Atrial Rate : 108 BPM P-R Int : 154 ms QRS Dur : 100 ms QT Int : 336 ms P-R-T Axes : 074 -60 084 degrees QTc Int : 450 ms Sinus tachycardia Left axis deviation Minimal voltage criteria for LVH, may be normal variant ( Zeke product ) Left anterior fascicular block Anterior infarct (cited on or before 14-JUN-2022) Abnormal ECG When compared to the previous EKG of Vent. rate has increased Referred By: Alfonzo López Electronically Signed By:INGRID TILLMAN MD
[2022-06-14 07:43] LABS: B Type Natriuretic Peptide 614 pg/mL (<100)
[2022-06-14] MEDS: cefTRIAXone sodium 1 GM in 0.9 % Sodium Chloride 50 ML IV ×2 (07:43→15:00)
[2022-06-14 08:10] LABS: Reflex Lactate? Lactic Acid Added
[2022-06-14] MEDS: Furosemide 20 MG/2 ML VIAL IVPUSH (08:40)
[2022-06-14 10:09] LABS: ~Lactic Acid-LAB USE ONLY 2.7 mmol/L (0.5-2.0)
[2022-06-14] MEDS: LORazepam 1 MG TABLET 2 MG PO (10:47)
[2022-06-14 11:35] LABS: Reflex Lactate? 2 Y
--- NOTE | 2022-06-14 11:39 | PHA.MEDREC ---
Pharmacy Consult ? Medication Reconciliation Pharmacy has completed the medication reconciliation. Patient had a medication list with her which matched her claim history and previous medication lists. She states her last dose of warfarin was last night (06/13/22) and she took 2 tablets.
[2022-06-14 12:06] LABS: Venous Blood Gas Refer to POC result
[2022-06-14 12:07] LABS: VBG Base Excess 4.3 mmol/L; VBG HCO3 26 mmol/L (22-26); VBG pCO2 32 mmHg; VBG pH 7.51 (7.32-7.43); VBG pO2 118 mmHg
--- NOTE | 2022-06-14 14:52 | PM.IMHP ---
History of Present Illness Date of Service: 06/14/22 Chief Complaint: dyspnea and hypoxia 77 yo F with COPD + KANDY on biPAP and home O2 [2L as needed], pulmonary HTN, antiphospholipid antibody syndrome with hx of PE/DVT on chronic warfarin [goal INR 1.5-2 rather than 2.5-3 due to platelet dysfunction per her pelt shearer at [facility]], stage IIIA lung CA s/p LULobectomy and neoadjunvant chemoradiation, radiation pulmonary fibrosis, nonobstructive CAD s/p NSTEMI, HFpEF, hypogammoglobulinemia, hypothyroidism, and recent admission here for influenza A with COPD exacerbation. She is on prednisone 5 mg/daily chronically and recently completed a course of doxycycline. She was recently seen by her employment law specialist, Dr Henry Kelly, on 06/08/22. She presented to the ED today with 1 day of shortness of breath and cough with yellow sputum. No hemoptysis. No fever. She was found to be markedly hypoxic with SaO2 of 73%. and was placed on biPAP . She recovered and is currently saturating 97% on 3L via nasal cannula. WBC count was 13.3. Initial lactate was 2.8 and is now 20. Troponin-I was 17.7. BNP was 614. CXR showed interstitial pulmonary edema, R>L, as well as L basilar consolidation. In the interim, she was given IV ceftriaxone and doxycycline, IV methylprednisolone, and an Duoneb treatment. Review of Systems Review of Systems: Yes all other systems are reviewed and are negative [facility] Medical History (HFpEF) heart failure with preserved ejection fraction CLARA positive Anti-phospholipid antibody syndrome Antiphospholipid antibody syndrome Arterial insufficiency of lower extremity Blood D-dimer assay positive Chest pain Chronic respiratory failure Complex regional pain syndrome i of right lower limb COPD (chronic obstructive pulmonary disease) COVID-19 Diverticulitis Dyspnea Dysuria Hypogammaglobulinemia Insomnia Lung cancer Mid sternal chest pain Mycobacterial disease NSTEMI (non-ST elevated myocardial infarction) KANDY treated with BiPAP Pericardial effusion Pleural effusion Pneumonitis Post herpetic neuralgia Pulmonary emboli Pulmonary hypertension Pulmonary nodules Radiation fibrosis of lung Subarachnoid bleed Tracheobronchitis URI (upper respiratory infection) Family History Sister No problems noted. Mother Cardiovascular disease Daughter Tachycardia Other KANDY (obstructive sleep apnea) Surgical History H/O: hysterectomy History of cardiac cath Hx of tonsillectomy Social History Household Members: None Housing: House Do you presently have visiting nurse or other home services: No Alcohol intake: never Patient Tobacco Use Status: Never used Tobacco Smoked in Last 30 Days: No Second Hand Smoke Exposure: No Advance Directives: No service: No Current occupational status: retired Meds Allergies Allergy/AdvReac Type Severity Reaction Status Date / Time avocado [AVOCADO] Allergy Mild ITCHY Verified 06/08/22 10:22 THROAT, RASH azithromycin [AZITHROMYCIN] Allergy Mild ITCHY Verified 06/08/22 10:22 THROAT, RASH barium iodide [BARIUM IODIDE] Allergy Mild ITCHY Verified 06/08/22 10:22 THROAT, RASH barium sulfate Allergy Mild Itch Verified 06/08/22 10:22 bee pollen [BEE STINGS] Allergy Mild ITCHY Verified 06/08/22 10:22 THROAT, RASH ciprofloxacin [From CIPRO] Allergy Mild ITCHY Verified 06/08/22 10:22 THROAT, RASH clarithromycin [From BIAXIN] Allergy Mild ITCHY Verified 06/08/22 10:22 THROAT, RASH diatrizoate meglumine Allergy Mild ITCHY Verified 06/08/22 10:22 [From GASTROGRAFIN] THROAT, RASH diatrizoate sodium Allergy Mild ITCHY Verified 06/08/22 10:22 [From GASTROGRAFIN] THROAT, RASH diclofenac [From VOLTAREN] Allergy Mild ITCHY Verified 06/08/22 10:22 THROAT, RASH erythromycin base Allergy Mild ITCHY Verified 06/08/22 10:22 [ERYTHROMYCIN BASE] THROAT, RASH gentamicin [GENTAMICIN] Allergy Mild ITCHY Verified 06/08/22 10:22 THROAT, RASH Iodinated Contrast Media Allergy Mild ITCHY Verified 06/08/22 10:22 [IVP DYE] THROAT, RASH levofloxacin [From LEVAQUIN] Allergy Mild ITCHY Verified 06/08/22 10:22 THROAT, RASH metronidazole [From FLAGYL] Allergy Mild ITCHY Verified 06/08/22 10:22 THROAT, RASH moxifloxacin [From AVELOX] Allergy Mild ITCHY Verified 06/08/22 10:22 THROAT, RASH Penicillins [PENICILLINS] Allergy Mild ITCHY Verified 06/08/22 10:22 THROAT, RASH shrimp [SHRIMP] Allergy Mild ITCHY Verified 06/08/22 10:22 THROAT, RASH Sulfa (Sulfonamide Allergy Mild ITCHY Verified 06/08/22 10:22 Antibiotics) THROAT, [SULFA (SULFONAMIDE RASH ANTIBIOTICS)] vancomycin [VANCOMYCIN] Allergy Mild ITCHY Verified 06/08/22 10:22 THROAT, RASH Active Medications: Current Medications Acetaminophen (Acetaminophen 325 Mg Tablet) 650 mg PO Q6H PRN PRN Reason: Pain, Mild (Pain Scale 1-3) Albuterol Sulfate (Albuterol Sulfate (0.083%) 2.5 Mg/3 Ml Vial.Neb) 2.5 mg INHALE Q2H PRN PRN Reason: Shortness of Breath/Wheezing Albuterol/Ipratropium (Albuterol/Iprat 2.5/0.5mg 3 Ml Ampul.Neb) 3 ml INHALE RQ4H WHILE AWAKE [facility] Atorvastatin Calcium (Atorvastatin Calcium 40 Mg Tablet) 40 mg PO MOWEFR@2100 [facility] Ferrous Sulfate (Ferrous Sulfate 324 Mg Tablet.Dr) 324 mg PO DAILY [facility] Fluticasone/Vilanterol (Fluticasone/Vilanterol 200/25 Blst.W.Dev) 1 puff INHALE DAILY [facility] Furosemide (Furosemide 20 Mg/2 Ml Vial) 20 mg IVPUSH DAILY MATHEW; Protocol Doxycycline Hyclate 100 mg/ (Sodium Chloride) 250 mls @ 166.67 mls/hr IV Q12H [facility] Ceftriaxone Sodium 1 gm/ (Sodium Chloride) 50 mls @ 100 mls/hr IV Q24H [facility] Levothyroxine Sodium (Levothyroxine Sodium 25 Mcg Tablet) 25 mcg PO MOTUWETHFR@0600 [facility] Levothyroxine Sodium (Levothyroxine Sodium 50 Mcg Tablet) 50 mcg PO SUSA@0600 [facility] Methylprednisolone Sodium Succinate (Methylprednisolone Sod Succ 40 Mg/Ml Vial) 40 mg IVPUSH Q12H [facility] Metoprolol Succinate (Metoprolol Succinate Er 25 Mg Tab.Er.24h) 25 mg PO BID MATHEW; Protocol Montelukast Sodium (Montelukast Sodium 10 Mg Tablet) 10 mg PO DAILY [facility] Ondansetron HCl (Ondansetron Hcl 4 Mg/2 Ml Vial) 4 mg IVPUSH Q8H PRN PRN Reason: Nausea and Vomiting Pharmacy Consult (Consult Rx Perform Med Rec) 1 each MISCELLANE ONCE PRN PRN Reason: Consult order Sodium Chloride (0.9 % Sodium Chloride Flush 3 Ml Syringe) 3 ml IVFLUSH QSHIFT [facility] Trazodone HCl (Trazodone Hcl 100 Mg Tablet) 100 mg PO BEDTIME [facility] Warfarin Sodium (Warfarin Sodium 1 Mg Tablet) 1 - 4 mg PO DAILY [facility] Home Medications Medication Instructions Recorded Confirmed Last Taken Type diazepam 5 mg tablet 5 mg PO BID PRN Anxiety and Sleep 11/26/20 06/14/22 06/14/22 03:00 History metoprolol succinate 25 mg 25 mg PO BID 09/29/21 06/14/22 06/13/22 History tablet,extended release 24 hr furosemide 20 mg tablet 20 mg PO DAILY swelling 03/30/22 06/14/22 06/13/22 History ferrous gluconate 324 mg (38 mg 324 mg PO QAM 05/25/22 06/14/22 06/13/22 History iron) tablet levothyroxine 25 mcg tablet 50 mcg PO SUSA@0600 05/25/22 06/14/22 06/12/22 History (Synthroid) rosuvastatin 10 mg tablet 10 mg PO MOWEFR@2100 05/25/22 06/14/22 06/13/22 History guaifenesin 100 mg/5 mL oral 200 mg PO Q4H PRN Cough 06/14/22 06/14/22 06/13/22 History liquid (Tussin) levocetirizine 5 mg tablet 5 mg PO DAILY allergies 06/14/22 06/14/22 06/13/22 History levothyroxine 25 mcg tablet 25 mcg PO MOTUWETHFR@0600 06/14/22 06/14/22 06/13/22 History (Synthroid) prednisone 5 mg tablet 5 mg PO DAILY 06/14/22 06/14/22 06/13/22 History warfarin 1 mg tablet (Jantoven) 1 - 4 tab PO DAILY 06/14/22 06/14/22 06/13/22 History Physical Exam Vital Signs and Narrative: Vital Signs: Last Vital Signs Temp 98.2 F 06/14/22 14:47 Pulse 98 06/14/22 14:47 Resp 28 H 06/14/22 14:47 BP 122/76 06/14/22 14:47 Pulse Ox 98 06/14/22 14:47 O2 Del Method 06/14/22 14:47 O2 Flow Rate 2 06/14/22 14:47 FiO2 45 06/14/22 11:07 BMI result Body Mass Index 23.0 Gen: mild respiratory distress HEENT: sclera anicteric, moist mucus membranes Neck: supple Lungs: decreased air entry L base, wet mid-field crackles R>L, tachypneic Heart: regular rate and rhythm, no murmurs, chest wall tenderness Abd: soft, non-tender, non-distended Ext: no edema Skin: warm/well-perfused Neuro: alert and oriented x3, no focal findings Psych: appropriate affect Results Labs CBC and Chem 7: 06/14/22 06:00 06/14/22 05:59 Labs: Laboratory Results - last 24 hr 06/14/22 06/14/22 06/14/22 05:59 05:59 06:00 MCV 98.0 MCH 32.0 MCHC 32.6 RDW 14.6 Plt Count 265 MPV 10.5 Immature Gran % (Auto) 2.1 H Neut % (Auto) 66.5 Lymph % (Auto) 21.1 [place] % (Auto) 8.3 Eos % (Auto) 1.4 Baso % (Auto) 0.6 Lymph # (Auto) 2.8 [place] # (Auto) 1.1 Eos # (Auto) 0.2 Baso # (Auto) 0.1 Abs Immat Gran (auto) 0.28 H Absolute Neuts (auto) 8.9 H Absolute Nucleated RBC 0.030 H Nucleated RBC % (auto) 0.2 VBG pH VBG pCO2 VBG pO2 VBG HCO3 VBG O2 Saturation VBG Base Excess Anion Gap 14 Estim Creat Clear Calc 42.3 Estimated GFR > 60 Random Glucose 167 H Lactic Acid Lactic Acid F/U @ 2Hr Lactic Acid F/U @ 4Hr Calcium 10.7 H D Total Bilirubin 0.6 AST 22 ALT 21 Alkaline Phosphatase 65 Troponin I High Sens 17.7 H B-Natriuretic Peptide Total Protein 7.0 Albumin 3.9 Influenza Type A (PCR) Influenza Type B (PCR) RSV RNA Qual (PCR) SARS-CoV-2 RNA (RT-PCR) 06/14/22 06/14/22 06/14/22 06:00 06:00 06:00 MCV MCH MCHC RDW Plt Count MPV Immature Gran % (Auto) Neut % (Auto) Lymph % (Auto) [place] % (Auto) Eos % (Auto) Baso % (Auto) Lymph # (Auto) [place] # (Auto) Eos # (Auto) Baso # (Auto) Abs Immat Gran (auto) Absolute Neuts (auto) Absolute Nucleated RBC Nucleated RBC % (auto) VBG pH VBG pCO2 VBG pO2 VBG HCO3 VBG O2 Saturation VBG Base Excess Anion Gap Estim Creat Clear Calc Estimated GFR Random Glucose Lactic Acid 2.8 H* Lactic Acid F/U @ 2Hr Lactic Acid F/U @ 4Hr Calcium Total Bilirubin AST ALT Alkaline Phosphatase Troponin I High Sens B-Natriuretic Peptide 614 H Total Protein Albumin Influenza Type A (PCR) NEGATIVE Influenza Type B (PCR) NEGATIVE RSV RNA Qual (PCR) NEGATIVE SARS-CoV-2 RNA (RT-PCR) NEGATIVE 06/14/22 06/14/22 06/14/22 09:31 11:57 12:02 MCV MCH MCHC RDW Plt Count MPV Immature Gran % (Auto) Neut % (Auto) Lymph % (Auto) [place] % (Auto) Eos % (Auto) Baso % (Auto) Lymph # (Auto) [place] # (Auto) Eos # (Auto) Baso # (Auto) Abs Immat Gran (auto) Absolute Neuts (auto) Absolute Nucleated RBC Nucleated RBC % (auto) VBG pH 7.51 H VBG pCO2 32 VBG pO2 118 VBG HCO3 26 VBG O2 Saturation 100.0 VBG Base Excess 4.3 Anion Gap Estim Creat Clear Calc Estimated GFR Random Glucose Lactic Acid Lactic Acid F/U @ 2Hr 2.7 H* Lactic Acid F/U @ 4Hr 2.0 Calcium Total Bilirubin AST ALT Alkaline Phosphatase Troponin I High Sens B-Natriuretic Peptide Total Protein Albumin Influenza Type A (PCR) Influenza Type B (PCR) RSV RNA Qual (PCR) SARS-CoV-2 RNA (RT-PCR) Imaging Radiologist's Impressions: Impressions Chest X-Ray 06/14/22 05:53 IMPRESSION: *Findings suspicious for moderate interstitial pulmonary edema asymmetrically prominent within the right lung. *Small left pleural effusion. *Left base atelectasis and/or consolidation. Assessment and Plan (1) COPD (chronic obstructive pulmonary disease): Status: Acute (2) CHF (congestive heart failure): Status: Acute (3) Acute and chronic respiratory failure: Status: Acute Plan 77 yo F with COPD + KANDY on biPAP and home O2 [2L as needed], pulmonary HTN, antiphospholipid antibody syndrome with hx of PE/DVT on chronic warfarin [goal INR 1.5-2 rather than 2.5-3 due to platelet dysfunction per her pelt shearer at [facility]], stage IIIA lung CA s/p LULobectomy and neoadjunvant chemoradiation, radiation pulmonary fibrosis, nonobstructive CAD s/p NSTEMI, HFpEF, hypogammoglobulinemia, hypothyroidism, and recent admission here for influenza A with COPD exacerbation, presenting here with dyspnea and found to have hypoxia with pulmonary interstitial edema and L basilar infiltrate. # severe sepsis due to PNA - admit to IMC, give ceftriaxone/doxycycline, trend PCT, follow BCx, check urinary antigens for pneumococcus and Legionella, MRSA swab - lactica cidosis resolved # COPD exacerbation - IV steroids, nebulized bronchodilators; continue ICS/LABA # HFpEF exacerbation - echocardiogram, IV furosemide, monitor electrolytes/I+O/BNP. continue metoprolol # [id number] hypoxic respiratory failure - supplemental O2, wean as tolerated # Tn-I indeterminate - repeat, suspect due to CHF rather than ACS # KANDY - biPAP at night # antiphospholipid antibody syndrome - warfarin, goal INR 1.5-2 as above # hypothyroidism - levothyroxine # CAD - rosuvastatin, metoprolol # VTE ppx: warfarin # code status: full I anticipate that the patient will stay at least 2 midnights as an inpatient in the hospital due to the above reasons. It is neither reasonable nor safe to care for them in a less acute setting. Quality Stroke Does the patient have a stroke diagnosis?: No VTE Prior VTE?: No VTE Risk Level:: Medical - moderate - high VTE Device Contraindication: N/A - Device Ordered VTE Drug Contraindication: N/A - Med Ordered
[2022-06-14] MEDS: methylPREDNISolone Sod Succ 40 MG/ML VIAL IVPUSH (15:00)
[2022-06-14] MEDS: Doxycycline Hyclate 100 MG in 0.9 % Sodium Chloride 250 ML 166.67 MG IV (15:01)
[2022-06-14 17:06] LABS: INTERNATIONAL NORM RATIO 1.4 (0.9-1.1); Prothrombin Time 16.7 SEC (10.0-13.1)
[2022-06-14 17:22] LABS: Troponin-I High Sensitivity 302.9 ng/L (<3.5-17.0)
[2022-06-14 17:31] LABS: Procalcitonin 0.04 ng/mL
--- NOTE | 2022-06-14 18:24 | MHC.CM.PN ---
IM[place] [facility] [place] Flu and COPD exacerbation. Lives alone. Has Bipap and nebulizer. Has O2@2L prn. Has services with [facility] for SN,PT and OT. Moderna x2. No booster. No HCP on file. HCP/daughter Loly Paul ([phone]). D/C plan: Home with existing services. Referral placed with [facility] to follow. Pt will need transport home. CM to follow for discharge planning.
--- NOTE | 2022-06-14 19:00 | P.EN_ITS ---
Event Note Date of Service: 06/14/22 Event Note: elevated troponin c/w with acute NC, starting IV heparin, ASA
--- NOTE | 2022-06-14 19:00 | PM.EVENT ---
Event Note Date of Service: 06/14/22 Event Note: elevated troponin c/w with acute [place], starting IV heparin, ASA
--- NOTE | 2022-06-14 19:07 | PC.NURSE ---
Patient being transferred to [facility] report called to [place] YOU. Patient alert and oriented x 3. Patient is on 3l nc home oxygen. Patient has 2 iv's one in each arm. Doxycycline just discontinued. MD ordered Heparin drip awaiting PTT to start heparin drip. Patient denies any pain. resting quietly.
--- NOTE | 2022-06-14 19:41 | PC.NURSE ---
this pct assumed care of pt at 1945 ,patient got moved from stretcher to bed ,vitals sign taken ,fresh pincher water given ,tissue and small trash bag and bedside commode in place ,pt call ma in reach .
--- NOTE | 2022-06-14 19:42 | PC.NURSE ---
PT refusing to start heparin until MD speaks with them. MD Denis notified.
--- NOTE | 2022-06-14 19:43 | PC.NURSE ---
Pt moved into room, hooked to tele monitor.
[2022-06-14 19:58] LABS: INTERNATIONAL NORM RATIO 1.4 (0.9-1.1); Prothrombin Time 16.4 SEC (10.0-13.1)
[2022-06-14 20:00] LABS: PTT Heparin Drip 35.5 SEC (53-77.9)
--- NOTE | 2022-06-14 20:26 | PC.NURSE ---
Pt refusing ASA, aware.
[2022-06-14] MEDS: Metoprolol Succinate ER 25 MG TAB.ER.24H PO (21:59)
[2022-06-14] MEDS: traZODone HCL 100 MG TABLET PO (21:59)
[2022-06-14] MEDS: Montelukast Sodium 10 MG TABLET PO (21:59)
[2022-06-14] MEDS: Heparin Sodium,Porcine 5,000 UNIT/ML VIAL 4700 UNIT IVPUSH (22:12)
[2022-06-14] MEDS: Heparin Sodium,Porcine/1/2NS 25,000 UNIT/250 ML IV.SOLN 8.26 UNIT IVCONT (22:14)
--- NOTE | 2022-06-14 22:29 | PC.NURSE ---
RT at bedside.
[2022-06-15] VITALS (10 sets, daily range): BP systolic 102–115; BP diastolic 53–73; PULSE 82–110; RESP 16–29; TEMP 36.1–37.1; O2SAT 95–100; BMI 23.0
--- NOTE | 2022-06-15 | ECG_ITS ---
Test Reason : nstemi Blood Pressure : / mmHG Vent. Rate : 107 BPM Atrial Rate : 107 BPM P-R Int : 164 ms QRS Dur : 094 ms QT Int : 368 ms P-R-T Axes : 064 -57 039 degrees QTc Int : 491 ms Sinus tachycardia Left axis deviation Moderate voltage criteria for LVH, may be normal variant ( R in aVL , Zeke product ) Inferior infarct (cited on or before 14-JUN-2022) Anterior infarct (cited on or before 14-JUN-2022) Abnormal ECG When compared with ECG of 14-JUN-2022 06:06, Serial changes of Anterior infarct Present Referred By: Hector Shah Electronically Signed By:INGRID TILLMAN MD
--- NOTE | 2022-06-15 00:37 | PC.NURSE ---
PT sleeping, respiration regular.
[2022-06-15] MEDS: Doxycycline Hyclate 100 MG in 0.9 % Sodium Chloride 250 ML 166.67 MG IV ×2 (01:54→14:39)
[2022-06-15] MEDS: methylPREDNISolone Sod Succ 40 MG/ML VIAL IVPUSH ×2 (01:54→14:39)
--- NOTE | 2022-06-15 02:42 | PC.NURSE ---
PT sleeping, respiration regular.
[2022-06-15 04:16] LABS: Hemoglobin 11.4 g/dl (12.0-16.0); Mean Corpuscular HGB Conc 33.5 g/dl (31.0-35.0); Mean Corpuscular Hemoglobin 32.3 pg (27.0-33.0); Mean Corpuscular Volume 96.3 fL (80.0-98.0); Mean Platelet Volume 10.4 fL (9.4-12.3); Platelet Count 197 X10*3/uL (160-400); Red Blood Count 3.53 X10*6/uL (4.20-5.50); Red Cell Distribution Width 14.8 % (11.0-16.0); White Blood Count 17.1 X10*3/uL (4.8-10.8)
[2022-06-15 04:23] LABS: INTERNATIONAL NORM RATIO 1.6 (0.9-1.1)
[2022-06-15 04:42] LABS: PTT Heparin Drip > 200.0 SEC (53-77.9)
[2022-06-15 04:43] LABS: B Type Natriuretic Peptide 1140 pg/mL (<100)
--- NOTE | 2022-06-15 04:55 | PC.NURSE ---
Lab reported critical pTT MD voss notified.
[2022-06-15 04:59] LABS: Anion Gap 14 (12-20); Blood Urea Nitrogen 18 mg/dL (9-16); Calcium 9.3 mg/dL (8.4-10.2); Carbon Dioxide 27 mmol/L (22-29); Chloride 101 mmol/L (96-108); Creatinine Clr Calc Pharmacy 51.7; Estimated Glomerular Filt Rate > 60; Glucose Random 137 mg/dL (60-115); Magnesium 2.4 mg/dL (1.6-2.6); Potassium 4.6 mmol/L (3.3-5.1); Sodium 137 mmol/L (135-145)
[2022-06-15] MEDS: Levothyroxine Sodium 25 MCG TABLET PO (05:51)
--- NOTE | 2022-06-15 05:57 | PC.NURSE ---
Pt resting no needs expressed at this time.
[2022-06-15 06:00] LABS: PTT Heparin Drip 84.3 SEC (53-77.9)
--- NOTE | 2022-06-15 06:33 | PC.NURSE ---
Pt is refusing to let this RN restart heparin drip, MD Denis notified.
--- NOTE | 2022-06-15 07:00 | CA_ITS ---
Transthoracic Echocardiogram Patient (Last, First, Middle): Jovana Malik J Gender: Female Date of : 1945 Age: 77 Procedure Date: 06/14/2022 Procedure Type: Transthoracic Echocardi[place] [facility] [place]: 160.02 cm Weight: 58.97 kg BSA: 1.61 m2 Heart Rate: bpm BP: 97 / 57 mmHg Hearing Aid Technician: CONRAD Referring MD: Hector Shah MD Symptoms: HF, BUBBLE PLEASE Study Quality: Fair ECG Rhythm: Sinus Conclusions: - Normal left ventricular cavity size. There is mildly increased left ventricular wall thickness. The left ventricular systolic function is normal. The visually estimated ejection fraction is between 55-60%. - Spectral Doppler is indicative of an impaired relaxation filling pattern. Elevated filling pressures. - The apical lateral segment is hypokinetic. - The apex and apical septum segments are akinetic. - Normal right ventricular cavity size and systolic function. - There is no evidence of interatrial shunt by color Doppler and contrast. - There is moderate tricuspid valve regurgitation. Normal right atrial pressure. Mild pulmonary hypertension is present. Findings Procedure Information Contrast agent, definity, is being given per protocol without apparent complications. Left Ventricle Normal left ventricular cavity size. There is mildly increased left ventricular wall thickness. The left ventricular systolic function is normal. The visually estimated ejection fraction is between 55-60%. There is evidence of regional wall motion abnormalities. Abnormal diastolic function is noted. Spectral Doppler is indicative of an impaired relaxation filling pattern. Elevated filling pressures. Wall Motion Rest Echo Findings The apical lateral segment is hypokinetic. The apex and apical septum segments are akinetic. Right Ventricle Normal right ventricular cavity size and systolic function. Atria The left atrium is normal in size. There is no evidence of interatrial shunt by color Doppler and contrast. The right atrium is normal in size. Aortic Valve There is a normal trileaflet aortic valve. There is mild calcification of the aortic valve. There is no aortic valve stenosis. There is no aortic valve regurgitation. Mitral Valve There is mild mitral annular calcification. There is mild mitral valve regurgitation. There is no mitral valve stenosis. Pulmonic Valve The pulmonic valve is likely normal. There is trace pulmonic valve regurgitation. Tricuspid Valve Normal tricuspid valve structure. There is moderate tricuspid valve regurgitation. Normal right atrial pressure. Mild pulmonary hypertension is present. Great Vessels All visible segments of the aorta are normal in size. The visualized portions of the pulmonary artery and branches are normal. Venous The inferior vena cava is normal in size and collapses greater than 50% with inspiration. Pericardium/Pleural There is no evidence of pericardial effusion. Prior Study Comparison No prior study available for comparison. Measurements 2D Linear Measurements IVSd: 0.96 0.6-0.9/0.6-1.0 cm LVIDd: 4.17 3.9-5.3/4.2-5.9 cm LVIDd Index: 2.59 2.4-3.2/2.2-3.1 cm/m2 LVIDs: 2.21 2.0-3.6 cm LVPWd: 0.92 0.7-1.1 cm LA Diam: 3.50 2.7-3.8/3.0-4.0 cm LAIDs Index: 2.17 1.5-2.3 cm/m2 LV Mass: 154.89 67-162/88-224 g LV Mass Index: 96.21 43-95/49-115 g/m2 LVOT Diam: 1.90 3.0+(-)1.3 cm Mitral Valve MV Pk E: 0.93 MV PK A: 0.88 MV Decel Time: 182.00 E/A: 1.00 E'Lateral: 8.38 E'Medial: 4.79 E/E' Med: 19.30 E/E' Lat: 11.00 PHT: 53.00 MVA PHT: 4.15 Decel Bre[place]itt: 5.08 Aortic Valve AoV Pk Memo: 1.12 AoV Mn Memo: 0.84 AoV VTI: 0.22 AoV Pk Grad: 5.00 Aov Mn Grad: 3.00 HARLEY Cont.VTI: 2.26 LVOT LVOT Pk Memo: 0.91 LVOT Mn Memo: 0.65 LVOT VTI: 0.18 LVOT Pk Grad: 3.00 LVOT Mn Grad: 2.00 LVOT Diam: 1.90 LVOT Area: 2.84 Diastolic Function MV Pk E: 0.93 MV Pk A: 0.88 E/A: 1.00 E'Medial: 4.79 E/E' Med: 19.30 E' Laterial: 8.38 E/E' Lat: 11.00 Right Ventricle TAPSE (mm): 23.00 TVS' Memo: 13.00 Tricuspid Valve TR Pk Memo: 3.17 TR Pk Grad: 40.00 RA Press: 3.00 RVSP: 42.00 Great Vessels Aorta Ao Asc: 2.70 2.1-3.4 cm Updated in Other Vendor System with Status of Final Luis Eduardo Cadet MD electronically signed on 06/16/2022 9:44:32 AM with status of Final
[2022-06-15 07:01] LABS: PTT Heparin Drip 33.3 SEC (53-77.9)
[2022-06-15] MEDS: Albuterol/Iprat 2.5/0.5MG 3 ML AMPUL.NEB INHALE ×2 (07:32→11:24)
--- NOTE | 2022-06-15 07:43 | PC.NURSE ---
Patient currently getting duo neb getting duoneb (scheduled). REsp even and non labored. Skin P/W/D. conversing easily. Denies CP at this time. Tele currently on--NSR. Will continue to monitor. Refusing Heparin at this time. Night MD notified and will be down to speak with patient (per night RN report)
[2022-06-15] MEDS: Ferrous Sulfate 324 MG TABLET.DR PO (07:56)
[2022-06-15] MEDS: Montelukast Sodium 10 MG TABLET PO ×2 (07:57→20:36)
[2022-06-15] MEDS: Furosemide 20 MG/2 ML VIAL IVPUSH (07:57)
[2022-06-15] MEDS: Metoprolol Succinate ER 25 MG TAB.ER.24H PO (07:57)
--- NOTE | 2022-06-15 08:01 | PC.NURSE ---
ECG done and troponin drawn/sent
[2022-06-15 08:44] LABS: Troponin-I High Sensitivity 137.6 ng/L (<3.5-17.0)
--- NOTE | 2022-06-15 10:40 | P.PNIM_ITS ---
Subjective Subjective Date of Service: 06/15/22 Interval History: started on heparin drip overnight for hs-Tn-I 18->303 has chronic chest pain that is non-exertional breathing improved; currently on 2L O2 via NC and SaO2 is 98% Review of Systems Review of Systems: Yes all other systems are reviewed and are negative Physical Exam Vital Signs: Vital Signs: Last Vital Signs Temp 98 F 06/15/22 08:00 Pulse 92 06/15/22 08:00 Resp 18 06/15/22 08:00 BP 109/73 06/15/22 08:00 Pulse Ox 100 06/15/22 08:00 O2 Del Method 06/15/22 08:00 O2 Flow Rate 2 06/15/22 06:03 FiO2 45 06/14/22 11:07 BMI result Body Mass Index 23.0 Gen: NAD HEENT: sclera anicteric, moist mucus membranes Neck: supple Lungs: decreased air entry L base Heart: regular rate and rhythm, no murmurs, chest wall tenderness Abd: soft, non-tender, non-distended Ext: no edema Skin: warm/well-perfused Neuro: alert and oriented x3, no focal findings Psych: appropriate affect Objective Data Active Medications Acetaminophen (Acetaminophen 325 Mg Tablet) 650 mg PO Q6H PRN PRN Reason: Pain, Mild (Pain Scale 1-3) Albuterol Sulfate (Albuterol Sulfate (0.083%) 2.5 Mg/3 Ml Vial.Neb) 2.5 mg INHALE Q2H PRN PRN Reason: Shortness of Breath/Wheezing Albuterol/Ipratropium (Albuterol/Iprat 2.5/0.5mg 3 Ml Ampul.Neb) 3 ml INHALE RQ4H WHILE AWAKE [facility] Last Admin: 06/15/22 07:32 Dose: 3 ml Documented By: ROLO Aspirin (Aspirin Enteric Coated 81 Mg Tablet.) 81 mg PO DAILY [facility] Last Admin: 06/15/22 07:55 Dose: Not Given Documented By: ISADORA Non-Admin Reason: Patient Refused Atorvastatin Calcium (Atorvastatin Calcium 40 Mg Tablet) 40 mg PO MOWEFR [facility] Last Admin: 06/15/22 07:56 Dose: Not Given Documented By: ISADORA Non-Admin Reason: Patient Refused Diazepam (Diazepam 5 Mg Tablet) 5 mg PO BID PRN PRN Reason: Anxiety and Sleep Ferrous Sulfate (Ferrous Sulfate 324 Mg Tablet.) 324 mg PO DAILY [facility] Last Admin: 06/15/22 07:56 Dose: 324 mg Documented By: ISADORA Fluticasone/Vilanterol (Fluticasone/Vilanterol 200/25 Blst.W.Dev) 1 puff INHALE DAILY [facility] Furosemide (Furosemide 20 Mg/2 Ml Vial) 20 mg IVPUSH DAILY [facility]; Protocol Last Admin: 06/15/22 07:57 Dose: 20 mg Documented By: ISADORA Doxycycline Hyclate 100 mg/ (Sodium Chloride) 250 mls @ 166.67 mls/hr IV Q12H [facility] Last Infusion: 06/15/22 04:29 Dose: 0 mls/hr Documented By: AWILDA Ceftriaxone Sodium 1 gm/ (Sodium Chloride) 50 mls @ 100 mls/hr IV Q24H [facility] Last Infusion: 06/14/22 20:41 Dose: 0 mls/hr Documented By: AWILDA Levothyroxine Sodium (Levothyroxine Sodium 25 Mcg Tablet) 25 mcg PO MOTUWETHFR@0600 [facility] Last Admin: 06/15/22 05:51 Dose: 25 mcg Documented By: AWILDA Levothyroxine Sodium (Levothyroxine Sodium 50 Mcg Tablet) 50 mcg PO SUSA@0600 [facility] Methylprednisolone Sodium Succinate (Methylprednisolone Sod Succ 40 Mg/Ml Vial) 40 mg IVPUSH Q12H [facility] Last Admin: 06/15/22 01:54 Dose: 40 mg Documented By: AWILDA Metoprolol Succinate (Metoprolol Succinate Er 25 Mg Tab.Er.24h) 25 mg PO BID [facility]; Protocol Last Admin: 06/15/22 07:57 Dose: 25 mg Documented By: ISADORA Montelukast Sodium (Montelukast Sodium 10 Mg Tablet) 10 mg PO DAILY [facility] Last Admin: 06/15/22 07:57 Dose: 10 mg Documented By: ISADORA Montelukast Sodium (Montelukast Sodium 10 Mg Tablet) 10 mg PO BEDTIME [facility] Last Admin: 06/14/22 21:59 Dose: 10 mg Documented By: AWILDA Ondansetron HCl (Ondansetron Hcl 4 Mg/2 Ml Vial) 4 mg IVPUSH Q8H PRN PRN Reason: Nausea and Vomiting Pharmacy Consult (Consult Rx Perform Med Rec) 1 each MISCELLANE ONCE PRN PRN Reason: Consult order Sodium Chloride (0.9 % Sodium Chloride Flush 3 Ml Syringe) 3 ml IVFLUSH QSHIFT [facility] Last Admin: 06/15/22 07:11 Dose: Not Given Documented By: RASHIDA Non-Admin Reason: See Note Trazodone HCl (Trazodone Hcl 100 Mg Tablet) 100 mg PO BEDTIME [facility] Last Admin: 06/14/22 21:59 Dose: 100 mg Documented By: ARGENTINALITJAYNA Warfarin Sodium (Warfarin Sodium 1 Mg Tablet) 1 mg PO DAILY@1800 [facility] Labs CBC & Chem 7: 06/15/22 04:11 06/15/22 04:11 Labs: Laboratory Results - last 24 hr 06/14/22 06/14/22 06/14/22 11:57 12:02 16:27 MCV MCH MCHC RDW Plt Count MPV Absolute Nucleated RBC Nucleated RBC % (auto) PT 16.7 H INR 1.4 H aPTT Heparin Protocol VBG pH 7.51 H VBG pCO2 32 VBG pO2 118 VBG HCO3 26 VBG O2 Saturation 100.0 VBG Base Excess 4.3 Anion Gap Estim Creat Clear Calc Estimated GFR Random Glucose Lactic Acid F/U @ 4Hr 2.0 Calcium Magnesium Troponin I High Sens B-Natriuretic Peptide Procalcitonin 06/14/22 06/14/22 06/14/22 16:27 16:27 19:21 MCV MCH MCHC RDW Plt Count MPV Absolute Nucleated RBC Nucleated RBC % (auto) PT 16.4 H INR 1.4 H aPTT Heparin Protocol 35.5 L VBG pH VBG pCO2 VBG pO2 VBG HCO3 VBG O2 Saturation VBG Base Excess Anion Gap Estim Creat Clear Calc Estimated GFR Random Glucose Lactic Acid F/U @ 4Hr Calcium Magnesium Troponin I High Sens 302.9 H* D B-Natriuretic Peptide Procalcitonin 0.04 06/15/22 06/15/22 06/15/22 04:10 04:11 04:11 MCV MCH MCHC RDW Plt Count MPV Absolute Nucleated RBC Nucleated RBC % (auto) PT 19.0 H INR 1.6 H aPTT Heparin Protocol > 200.0 H* D VBG pH VBG pCO2 VBG pO2 VBG HCO3 VBG O2 Saturation VBG Base Excess Anion Gap Estim Creat Clear Calc Estimated GFR Random Glucose Lactic Acid F/U @ 4Hr Calcium Magnesium Troponin I High Sens B-Natriuretic Peptide 1140 H Procalcitonin 06/15/22 06/15/22 06/15/22 04:11 04:11 05:47 MCV 96.3 MCH 32.3 MCHC 33.5 RDW 14.8 Plt Count 197 D MPV 10.4 Absolute Nucleated RBC 0.000 Nucleated RBC % (auto) 0.0 PT INR aPTT Heparin Protocol 84.3 H D VBG pH VBG pCO2 VBG pO2 VBG HCO3 VBG O2 Saturation VBG Base Excess Anion Gap 14 Estim Creat Clear Calc 51.7 Estimated GFR > 60 Random Glucose 137 H Lactic Acid F/U @ 4Hr Calcium 9.3 D Magnesium 2.4 Troponin I High Sens B-Natriuretic Peptide Procalcitonin 06/15/22 06/15/22 06:41 07:58 MCV MCH MCHC RDW Plt Count MPV Absolute Nucleated RBC Nucleated RBC % (auto) PT INR aPTT Heparin Protocol 33.3 L D VBG pH VBG pCO2 VBG pO2 VBG HCO3 VBG O2 Saturation VBG Base Excess Anion Gap Estim Creat Clear Calc Estimated GFR Random Glucose Lactic Acid F/U @ 4Hr Calcium Magnesium Troponin I High Sens 137.6 H* D B-Natriuretic Peptide Procalcitonin Microbiology Microbiology Results: Microbiology 06/14/22 06:19 Blood Culture - Preliminary Blood - Venous No growth after 24 hours. 06/14/22 06:02 Blood Culture - Preliminary Blood - Venous No growth after 24 hours. Assessment and Plan (1) COPD (chronic obstructive pulmonary disease): Status: Acute Plan hospital d#2 77 yo F with COPD + KANDY on biPAP and home O2 [2L as needed], pulmonary HTN, antiphospholipid antibody syndrome with hx of PE/DVT on chronic warfarin [goal INR 1.5-2 rather than 2.5-3 due to platelet dysfunction per her park guide [place] at [facility]], stage IIIA lung CA s/p LULobectomy and neoadjunvant chemoradiation, radiation pulmonary fibrosis, nonobstructive CAD s/p NSTEMI, HFpEF, hypogammoglobulinemia, hypothyroidism, and recent admission here for influenza A with COPD exacerbation, presenting here with dyspnea and found to have hypoxia with pulmonary interstitial edema and L basilar infiltrate. # NSTEMI # hx nonocculsive CAD - suspect demand due to hypoxia rather than ACS. pt had cardiac cath 1 yr ago showing 40-50% occlusion in mid-LAD. Cardiology consulted, heparin d/c'ed. TTE pending. continue rosuvastatin, metoprolol # severe sepsis due to PNA - ceftriaxone/doxycycline d#2, trend PCT, follow BCx, check urinary antigens for pneumococcus and Legionella, MRSA swab - lactic acidosis resolved # COPD exacerbation - IV steroids, nebulized bronchodilators; continue ICS/LABA # HFpEF exacerbation - echocardiogram, IV furosemide, monitor electrolytes/I+O/BNP.? continue metoprolol # [id number] hypoxic respiratory failure - supplemental O2, wean as tolerated # KANDY - biPAP at night # antiphospholipid antibody syndrome - warfarin, goal INR 1.5-2 as above # hypothyroidism - levothyroxine # VTE ppx: warfarin In my clinical judgment, the patient requires continued inpatient hospitalization for the following reasons: IV ABX, hyphoxia Quality Stroke Does the patient have a stroke diagnosis?: No VTE Prior VTE?: No VTE Risk Level:: Medical - moderate - high VTE Device Contraindication: N/A - Device Ordered VTE Drug Contraindication: N/A - Med Ordered
--- NOTE | 2022-06-15 11:55 | P.CONCA_ITS ---
History of Present Illness History of Present Illness Date of Service: 06/15/22 Requesting physician: Hector Shah Consult reason: troponin elevation Chief complaint: AHRF PNA CHF Narrative: I was consulted to see Jovana in cardiology consultation today for elevated cardiac biomarkers. But he is of 77-year-old female complicated past medical history with fragmented care at multiple different institutions. Patient has seen Dr. Cadet in the past and has nonobstructive coronary artery disease and diastolic heart failure. She also has significant COPD and uses oxygen when she is in distress but not on a regular basis. She sees Dr. Kelly and has been advised to use oxygen when she does over exertion. She also sees physicians at [facility] and also at [facility]. She came to the hospital because she was not able to breathe for 3 days. She says she had multiple recent hospitalizations including in early May and then mid May, early May was [facility] where she was there for 2 days and subsequently in may when she was here for 4 days treated for COPD exacerbation and then released home. She came here because she continued to have increasing shortness of breath along with chest tightness and came to the emergency room. In the emergency room she was noted to have COPD exacerbation and was noted to have elevated BNP and had rise and fall in troponins consistent with myocardial necrosis. No acute ischemic EKG changes noted. She is feeling a lot better but is very worried about overall health and need for taking medications. She has notice that her heart rate is elevated at rest when she is getting her nebulizer treatment. She denies any palpitations. Review of Systems Constitutional: Constitutional: Reports lethargy Eyes: Eyes: Reports no additional eye complaints Cardiovascular: Cardiovascular: Reports rapid heart rate, Denies leg edema, Denies lightheadedness, Denies palpitations, Reports dyspnea and Reports other (Chest tightness on presentation) Respiratory: Respiratory: Reports chest congestion, Reports cough, Reports excessive phlegm production and Reports dyspnea Gastrointestinal: Gastrointestinal: Reports no additional gastrointestinal com plaints Genitourinary: Genitourinary: Reports no additional female genitourinary complaints Musculoskeletal: Musculoskeletal: Reports no additional musculoskeletal complaints Integumentary/Breasts: Skin/Breast: Reports system reviewed and no additional complaints, except as docu Neurologic: Reports system reviewed and no additional complaints, except as documented Psychiatric: Psychiatric: Reports no additional psychiatric complaints Endocrine: Endocrine: Reports no additional endocrine complaints and Denies palpitations Hematologic/Lymphatic: Hematologic/Lymphatic: Reports no additional hematologic/lymphatic complaints [facility] Past Medical History Medical History (HFpEF) heart failure with preserved ejection fraction CLARA positive Anti-phospholipid antibody syndrome Antiphospholipid antibody syndrome Arterial insufficiency of lower extremity Blood D-dimer assay positive Chest pain Chronic respiratory failure Complex regional pain syndrome i of right lower limb COPD (chronic obstructive pulmonary disease) COVID-19 Diverticulitis Dyspnea Dysuria Hypogammaglobulinemia Insomnia Lung cancer Mid sternal chest pain Mycobacterial disease NSTEMI (non-ST elevated myocardial infarction) KANDY treated with BiPAP Pericardial effusion Pleural effusion Pneumonitis Post herpetic neuralgia Pulmonary emboli Pulmonary hypertension Pulmonary nodules Radiation fibrosis of lung Subarachnoid bleed Tracheobronchitis URI (upper respiratory infection) Family History Family History Sister No problems noted. Mother Cardiovascular disease Daughter Tachycardia Other KANDY (obstructive sleep apnea) Surgical History Surgical History H/O: hysterectomy History of cardiac cath Hx of tonsillectomy Social History Social History Household Members: None Housing: House Do you presently have visiting nurse or other home services: No Alcohol intake: never Patient Tobacco Use Status: Never used Tobacco Smoked in Last 30 Days: No Second Hand Smoke Exposure: No Advance Directives: Yes Advance Directives on File: Yes Advance Directives Date on File: 06/15/22 service: No Current occupational status: retired Meds Allergies Allergy/AdvReac Type Severity Reaction Status Date / Time avocado [AVOCADO] Allergy Mild ITCHY Verified 06/08/22 10:22 THROAT, RASH azithromycin [AZITHROMYCIN] Allergy Mild ITCHY Verified 06/08/22 10:22 THROAT, RASH barium iodide [BARIUM IODIDE] Allergy Mild ITCHY Verified 06/08/22 10:22 THROAT, RASH barium sulfate Allergy Mild Itch Verified 06/08/22 10:22 bee pollen [BEE STINGS] Allergy Mild ITCHY Verified 06/08/22 10:22 THROAT, RASH ciprofloxacin [From CIPRO] Allergy Mild ITCHY Verified 06/08/22 10:22 THROAT, RASH clarithromycin [From BIAXIN] Allergy Mild ITCHY Verified 06/08/22 10:22 THROAT, RASH diatrizoate meglumine Allergy Mild ITCHY Verified 06/08/22 10:22 [From GASTROGRAFIN] THROAT, RASH diatrizoate sodium Allergy Mild ITCHY Verified 06/08/22 10:22 [From GASTROGRAFIN] THROAT, RASH diclofenac [From VOLTAREN] Allergy Mild ITCHY Verified 06/08/22 10:22 THROAT, RASH erythromycin base Allergy Mild ITCHY Verified 06/08/22 10:22 [ERYTHROMYCIN BASE] THROAT, RASH gentamicin [GENTAMICIN] Allergy Mild ITCHY Verified 06/08/22 10:22 THROAT, RASH Iodinated Contrast Media Allergy Mild ITCHY Verified 06/08/22 10:22 [IVP DYE] THROAT, RASH levofloxacin [From LEVAQUIN] Allergy Mild ITCHY Verified 06/08/22 10:22 THROAT, RASH metronidazole [From FLAGYL] Allergy Mild ITCHY Verified 06/08/22 10:22 THROAT, RASH moxifloxacin [From AVELOX] Allergy Mild ITCHY Verified 06/08/22 10:22 THROAT, RASH Penicillins [PENICILLINS] Allergy Mild ITCHY Verified 06/08/22 10:22 THROAT, RASH shrimp [SHRIMP] Allergy Mild ITCHY Verified 06/08/22 10:22 THROAT, RASH Sulfa (Sulfonamide Allergy Mild ITCHY Verified 06/08/22 10:22 Antibiotics) THROAT, [SULFA (SULFONAMIDE RASH ANTIBIOTICS)] vancomycin [VANCOMYCIN] Allergy Mild ITCHY Verified 06/08/22 10:22 THROAT, RASH Active Medications: Current Medications Acetaminophen (Acetaminophen 325 Mg Tablet) 650 mg PO Q6H PRN PRN Reason: Pain, Mild (Pain Scale 1-3) Albuterol Sulfate (Albuterol Sulfate (0.083%) 2.5 Mg/3 Ml Vial.Neb) 2.5 mg INHALE Q2H PRN PRN Reason: Shortness of Breath/Wheezing Albuterol/Ipratropium (Albuterol/Iprat 2.5/0.5mg 3 Ml Ampul.Neb) 3 ml INHALE RQ4H WHILE AWAKE [facility] Last Admin: 06/15/22 11:24 Dose: 3 ml Aspirin (Aspirin Enteric Coated 81 Mg Tablet.) 81 mg PO DAILY [facility] Last Admin: 06/15/22 07:55 Dose: Not Given Atorvastatin Calcium (Atorvastatin Calcium 40 Mg Tablet) 40 mg PO MOWEFR [facility] Last Admin: 06/15/22 07:56 Dose: Not Given Diazepam (Diazepam 5 Mg Tablet) 5 mg PO BID PRN PRN Reason: Anxiety and Sleep Ferrous Sulfate (Ferrous Sulfate 324 Mg Tablet.Dr) 324 mg PO DAILY [facility] Last Admin: 06/15/22 07:56 Dose: 324 mg Fluticasone/Vilanterol (Fluticasone/Vilanterol 200/25 Blst.W.Dev) 1 puff INHALE DAILY [facility] Last Admin: 06/15/22 11:24 Dose: Not Given Furosemide (Furosemide 20 Mg/2 Ml Vial) 20 mg IVPUSH DAILY [facility]; Protocol Last Admin: 06/15/22 07:57 Dose: 20 mg Doxycycline Hyclate 100 mg/ (Sodium Chloride) 250 mls @ 166.67 mls/hr IV Q12H [facility] Last Infusion: 06/15/22 04:29 Dose: Infused Ceftriaxone Sodium 1 gm/ (Sodium Chloride) 50 mls @ 100 mls/hr IV Q24H [facility] Last Infusion: 06/14/22 20:41 Dose: Infused Levothyroxine Sodium (Levothyroxine Sodium 25 Mcg Tablet) 25 mcg PO MOTUWETHFR@0600 [facility] Last Admin: 06/15/22 05:51 Dose: 25 mcg Levothyroxine Sodium (Levothyroxine Sodium 50 Mcg Tablet) 50 mcg PO SUSA@0600 [facility] Methylprednisolone Sodium Succinate (Methylprednisolone Sod Succ 40 Mg/Ml Vial) 40 mg IVPUSH Q12H [facility] Last Admin: 06/15/22 01:54 Dose: 40 mg Metoprolol Succinate (Metoprolol Succinate Er 25 Mg Tab.Er.24h) 25 mg PO BID [facility]; Protocol Last Admin: 06/15/22 07:57 Dose: 25 mg Montelukast Sodium (Montelukast Sodium 10 Mg Tablet) 10 mg PO DAILY [facility] Last Admin: 06/15/22 07:57 Dose: 10 mg Montelukast Sodium (Montelukast Sodium 10 Mg Tablet) 10 mg PO BEDTIME [facility] Last Admin: 06/14/22 21:59 Dose: 10 mg Ondansetron HCl (Ondansetron Hcl 4 Mg/2 Ml Vial) 4 mg IVPUSH Q8H PRN PRN Reason: Nausea and Vomiting Pharmacy Consult (Consult Rx Perform Med Rec) 1 each MISCELLANE ONCE PRN PRN Reason: Consult order Sodium Chloride (0.9 % Sodium Chloride Flush 3 Ml Syringe) 3 ml IVFLUSH QSHIFT [facility] Last Admin: 06/15/22 07:11 Dose: Not Given Trazodone HCl (Trazodone Hcl 100 Mg Tablet) 100 mg PO BEDTIME [facility] Last Admin: 06/14/22 21:59 Dose: 100 mg Warfarin Sodium (Warfarin Sodium 2 Mg Tablet) 2 mg PO DAILY@1800 [facility] Home Medications Medication Instructions Recorded Confirmed Last Taken Type diazepam 5 mg tablet 5 mg PO BID PRN Anxiety and Sleep 11/26/20 06/14/22 06/14/22 03:00 History metoprolol succinate 25 mg 25 mg PO BID 09/29/21 06/14/22 06/13/22 History tablet,extended release 24 hr furosemide 20 mg tablet 20 mg PO DAILY swelling 03/30/22 06/14/22 06/13/22 History ferrous gluconate 324 mg (38 mg 324 mg PO QAM 05/25/22 06/14/22 06/13/22 History iron) tablet levothyroxine 25 mcg tablet 50 mcg PO SUSA@0600 05/25/22 06/14/22 06/12/22 History (Synthroid) rosuvastatin 10 mg tablet 10 mg PO MOWEFR@2100 05/25/22 06/14/22 06/13/22 History guaifenesin 100 mg/5 mL oral 200 mg PO Q4H PRN Cough 06/14/22 06/14/22 06/13/22 History liquid (Tussin) levocetirizine 5 mg tablet 5 mg PO DAILY allergies 06/14/22 06/14/22 06/13/22 History levothyroxine 25 mcg tablet 25 mcg PO MOTUWETHFR@0600 06/14/22 06/14/22 06/13/22 History (Synthroid) prednisone 5 mg tablet 5 mg PO DAILY 06/14/22 06/14/22 06/13/22 History warfarin 1 mg tablet (Jantoven) 1 - 4 tab PO DAILY 06/14/22 06/14/22 06/13/22 History Physical Exam 2 Vital Signs: Vital Signs: Last Vital Signs Temp 98.8 F 06/15/22 11:52 Pulse 94 06/15/22 11:52 Resp 20 06/15/22 11:52 BP 115/64 06/15/22 11:52 Pulse Ox 96 06/15/22 11:52 O2 Del Method 06/15/22 11:52 O2 Flow Rate 2 06/15/22 11:52 FiO2 45 06/14/22 11:07 BMI result Body Mass Index 23.0 Const: General: cooperative, comfortable, no acute distress, alert and awake Nutritional Appearance: average body habitus Orientation/consciousness: patient oriented x3 HEENT: Head: Yes normocephalic and Yes atraumatic Neck: Neck: Yes trachea midline, Yes supple and Yes no JVD Resp: Effort & Inspection: normal respiratory effort Auscultation: clear to auscultation bilaterally, no rales and no wheezes Cardio: Jugular venous distension: no JVD Palpation: normal PMI Rate: regular rate Rhythm: regular rhythm Heart sounds: S1 normal heart sound present, S2 normal heart sound present, no click, no gallops, no murmurs and no rubs GI: Auscultation: normal bowel sounds Skin: General skin exam: no rashes or lesions noted and ecchymosis Neuro: General: patient oriented x3 and no focal motor deficits Extrem: General: Yes no clubbing, cyanosis or edema Objective Labs and Meds Result diagrams: 06/15/22 04:11 06/15/22 04:11 Lab results: Laboratory Results - last 24 hr 06/14/22 06/14/22 06/14/22 11:57 12:02 16:27 WBC RBC Hgb Hct MCV MCH MCHC RDW Plt Count MPV Absolute Nucleated RBC Nucleated RBC % (auto) PT 16.7 H INR 1.4 H aPTT Heparin Protocol VBG pH 7.51 H VBG pCO2 32 VBG pO2 118 VBG HCO3 26 VBG O2 Saturation 100.0 VBG Base Excess 4.3 Sodium Potassium Chloride Carbon Dioxide Anion Gap BUN Creatinine Estim Creat Clear Calc Estimated GFR Random Glucose Lactic Acid F/U @ 4Hr 2.0 Calcium Magnesium Troponin I High Sens B-Natriuretic Peptide Procalcitonin 06/14/22 06/14/22 06/14/22 16:27 16:27 19:21 WBC RBC Hgb Hct MCV MCH MCHC RDW Plt Count MPV Absolute Nucleated RBC Nucleated RBC % (auto) PT 16.4 H INR 1.4 H aPTT Heparin Protocol 35.5 L VBG pH VBG pCO2 VBG pO2 VBG HCO3 VBG O2 Saturation VBG Base Excess Sodium Potassium Chloride Carbon Dioxide Anion Gap BUN Creatinine Estim Creat Clear Calc Estimated GFR Random Glucose Lactic Acid F/U @ 4Hr Calcium Magnesium Troponin I High Sens 302.9 H* D B-Natriuretic Peptide Procalcitonin 0.04 06/15/22 06/15/22 06/15/22 04:10 04:11 04:11 WBC RBC Hgb Hct MCV MCH MCHC RDW Plt Count MPV Absolute Nucleated RBC Nucleated RBC % (auto) PT 19.0 H INR 1.6 H aPTT Heparin Protocol > 200.0 H* D VBG pH VBG pCO2 VBG pO2 VBG HCO3 VBG O2 Saturation VBG Base Excess Sodium Potassium Chloride Carbon Dioxide Anion Gap BUN Creatinine Estim Creat Clear Calc Estimated GFR Random Glucose Lactic Acid F/U @ 4Hr Calcium Magnesium Troponin I High Sens B-Natriuretic Peptide 1140 H Procalcitonin 06/15/22 06/15/22 06/15/22 04:11 04:11 05:47 WBC 17.1 H RBC 3.53 L D Hgb 11.4 L Hct 34.0 L D MCV 96.3 MCH 32.3 MCHC 33.5 RDW 14.8 Plt Count 197 D MPV 10.4 Absolute Nucleated RBC 0.000 Nucleated RBC % (auto) 0.0 PT INR aPTT Heparin Protocol 84.3 H D VBG pH VBG pCO2 VBG pO2 VBG HCO3 VBG O2 Saturation VBG Base Excess Sodium 137 Potassium 4.6 Chloride 101 Carbon Dioxide 27 Anion Gap 14 BUN 18 H Creatinine 0.73 Estim Creat Clear Calc 51.7 Estimated GFR > 60 Random Glucose 137 H Lactic Acid F/U @ 4Hr Calcium 9.3 D Magnesium 2.4 Troponin I High Sens B-Natriuretic Peptide Procalcitonin 06/15/22 06/15/22 06:41 07:58 WBC RBC Hgb Hct MCV MCH MCHC RDW Plt Count MPV Absolute Nucleated RBC Nucleated RBC % (auto) PT INR aPTT Heparin Protocol 33.3 L D VBG pH VBG pCO2 VBG pO2 VBG HCO3 VBG O2 Saturation VBG Base Excess Sodium Potassium Chloride Carbon Dioxide Anion Gap BUN Creatinine Estim Creat Clear Calc Estimated GFR Random Glucose Lactic Acid F/U @ 4Hr Calcium Magnesium Troponin I High Sens 137.6 H* D B-Natriuretic Peptide Procalcitonin Assessment and Plan (1) Acute respiratory failure: Status: Acute Patient present with acute respiratory failure related to COPD exacerbation with secondary elevation of BNP most likely either due to RV strain due to acute cor pulmonale and/or mild decompensation of her diastolic heart failure. Her bronchospastic airway disease seems to have improved. At this point time would continue treatment for the same. Please switch to pulmonary specific bronchodilators such as Xopenex. Also switch metoprolol to verapamil 40 mg b.i.d. for heart rate control. Continue manage her COPD exacerbation. Pulmonary consult. Consider mucolytic therapy to prevent mucus plugging. Clinically does not appear to be in overt heart failure at this point time. Can switch to p.o. Lasix. Can trend a BNP to see if this has reached baseline. (2) Elevated troponin: Status: Acute Elevated troponin with rise and fall consistent with myocardial necrosis related to acute medical illness related to acute respiratory failure related to COPD exacerbation with hypoxemia and acidosis. Unlikely to be primary acute coronary syndrome. No need for IV heparin this can be discontinued. Continue usual treatment for nonobstructive CAD with aspirin high-intensity statin therapy. Continue aggressive blood pressure control. Will sign of the case at this point time. Thank you for allowing me to partake in her care Procedures Date of Service Date of Service: 06/15/22
[2022-06-15 14:04] LABS: MRSA Nasal PCR NEGATIVE (Negative); SA Nasal PCR NEGATIVE (Negative)
[2022-06-15] MEDS: guaiFENesin 200 MG/10 ML 10 ML LIQUID PO ×2 (14:39→20:18)
[2022-06-15] MEDS: cefTRIAXone sodium 1 GM in 0.9 % Sodium Chloride 50 ML IV (14:40)
[2022-06-15] MEDS: Acetylcysteine 10 % 400 MG/4 ML VIAL INHALE ×2 (14:40→19:37)
[2022-06-15] MEDS: VerapamiL HCL 40 MG TABLET PO (14:51)
[2022-06-15] MEDS: diazePAM 5 MG TABLET PO (14:51)
--- NOTE | 2022-06-15 17:08 | PM.CNPUL ---
History of Present Illness History of Present Illness Consult date: 06/15/22 Reason for consult: dyspnea, cough and hypoxemia Chief complaint: AHRF PNA CHF Narrative: This 77 years old female, is a well known patient, with multiple medical issues. For pulmonary problems she is being followed by Dr. Henry Kelly. She is a case of long-time chronic obstructive pulmonary disease, and has history of very frequent acute exacerbations, being treated with antibiotics as well as steroids. This patient has multiple comorbidities including : KANDY AND CHRONIC RESPIRATORY FAILURE WHICH IS BEING TREATED WITH BIPAP AND O2 SUPPLEMENTATION Chronic pulmonary hypertension, and T phospholipid antibody syndrome, with previous history of pulmonary embolism/DVT and is chronically on warfarin. Patient has had stage III A lung carcinoma treated with left upper lobectomy and adjuvant chemo radiation. She also has developed post radiation pulmonary fibrosis. Patient has coronary artery disease status post NSTEMI, HFpEF , HYPO GAMMA GLOBULINEMIA, HYPOTHYROIDISM, AND GENERAL EARLY CONDITION. She was seen by Dr. Kelly, and felt to be stable and was advised to continue her usual medications. She presented to the emergency room yesterday with increased shortness of breath and cough for about 1 day, but did not have any fever chills. She does have nonspecific chest discomfort , at rest . She does remain anxious and frail. Review of Systems Review of Systems: Yes all other systems are reviewed and are negative (PMFSH IS REVIEWED.) Constitutional: Constitutional: Reports body ache(s) and Reports fatigue Eyes: Eyes: Reports no additional eye complaints ENT: Reports system reviewed and no additional complaints, except as documented Cardiovascular: Cardiovascular: Reports chest pain and Reports dyspnea Respiratory: Respiratory: Reports dyspnea Endocrine: Endocrine: Reports fatigue PMFSH Past Medical History Medical History (HFpEF) heart failure with preserved ejection fraction CLARA positive Anti-phospholipid antibody syndrome Antiphospholipid antibody syndrome Arterial insufficiency of lower extremity Blood D-dimer assay positive Chest pain Chronic respiratory failure Complex regional pain syndrome i of right lower limb COPD (chronic obstructive pulmonary disease) COVID-19 Diverticulitis Dyspnea Dysuria Hypogammaglobulinemia Insomnia Lung cancer Mid sternal chest pain Mycobacterial disease NSTEMI (non-ST elevated myocardial infarction) KANDY treated with BiPAP Pericardial effusion Pleural effusion Pneumonitis Post herpetic neuralgia Pulmonary emboli Pulmonary hypertension Pulmonary nodules Radiation fibrosis of lung Subarachnoid bleed Tracheobronchitis URI (upper respiratory infection) Family History Family History Sister No problems noted. Mother Cardiovascular disease Daughter Tachycardia Other KANDY (obstructive sleep apnea) Surgical History Surgical History H/O: hysterectomy History of cardiac cath Hx of tonsillectomy Social History Social History Household Members: None Housing: House Do you presently have visiting nurse or other home services: Yes Alcohol intake: never Patient Tobacco Use Status: Never used Tobacco Second Hand Smoke Exposure: No Advance Directives Date on File: 06/15/22 service: No Current occupational status: retired Meds Allergies Allergy/AdvReac Type Severity Reaction Status Date / Time avocado [AVOCADO] Allergy Mild ITCHY Verified 06/08/22 10:22 THROAT, RASH azithromycin [AZITHROMYCIN] Allergy Mild ITCHY Verified 06/08/22 10:22 THROAT, RASH barium iodide [BARIUM IODIDE] Allergy Mild ITCHY Verified 06/08/22 10:22 THROAT, RASH barium sulfate Allergy Mild Itch Verified 06/08/22 10:22 bee pollen [BEE STINGS] Allergy Mild ITCHY Verified 06/08/22 10:22 THROAT, RASH ciprofloxacin [From CIPRO] Allergy Mild ITCHY Verified 06/08/22 10:22 THROAT, RASH clarithromycin [From BIAXIN] Allergy Mild ITCHY Verified 06/08/22 10:22 THROAT, RASH diatrizoate meglumine Allergy Mild ITCHY Verified 06/08/22 10:22 [From GASTROGRAFIN] THROAT, RASH diatrizoate sodium Allergy Mild ITCHY Verified 06/08/22 10:22 [From GASTROGRAFIN] THROAT, RASH diclofenac [From VOLTAREN] Allergy Mild ITCHY Verified 06/08/22 10:22 THROAT, RASH erythromycin base Allergy Mild ITCHY Verified 06/08/22 10:22 [ERYTHROMYCIN BASE] THROAT, RASH gentamicin [GENTAMICIN] Allergy Mild ITCHY Verified 06/08/22 10:22 THROAT, RASH Iodinated Contrast Media Allergy Mild ITCHY Verified 06/08/22 10:22 [IVP DYE] THROAT, RASH levofloxacin [From LEVAQUIN] Allergy Mild ITCHY Verified 06/08/22 10:22 THROAT, RASH metronidazole [From FLAGYL] Allergy Mild ITCHY Verified 06/08/22 10:22 THROAT, RASH moxifloxacin [From AVELOX] Allergy Mild ITCHY Verified 06/08/22 10:22 THROAT, RASH Penicillins [PENICILLINS] Allergy Mild ITCHY Verified 06/08/22 10:22 THROAT, RASH shrimp [SHRIMP] Allergy Mild ITCHY Verified 06/08/22 10:22 THROAT, RASH Sulfa (Sulfonamide Allergy Mild ITCHY Verified 06/08/22 10:22 Antibiotics) THROAT, [SULFA (SULFONAMIDE RASH ANTIBIOTICS)] vancomycin [VANCOMYCIN] Allergy Mild ITCHY Verified 06/08/22 10:22 THROAT, RASH Active Medications: Current Medications Acetaminophen (Acetaminophen 325 Mg Tablet) 650 mg PO Q6H PRN PRN Reason: Pain, Mild (Pain Scale 1-3) Acetylcysteine (Acetylcysteine 10 % 400 Mg/4 Ml Vial) 400 mg INHALE RQ6H WHILE AWAKE [facility] Last Admin: 06/15/22 14:40 Dose: 400 mg Aspirin (Aspirin Enteric Coated 81 Mg Tablet.) 81 mg PO DAILY [facility] Last Admin: 06/15/22 07:55 Dose: Not Given Atorvastatin Calcium (Atorvastatin Calcium 40 Mg Tablet) 40 mg PO MOWEFR [facility] Last Admin: 06/15/22 07:56 Dose: Not Given Diazepam (Diazepam 5 Mg Tablet) 5 mg PO BID PRN PRN Reason: Anxiety and Sleep Last Admin: 06/15/22 14:51 Dose: 5 mg Ferrous Sulfate (Ferrous Sulfate 324 Mg Tablet.) 324 mg PO DAILY [facility] Last Admin: 06/15/22 07:56 Dose: 324 mg Fluticasone/Vilanterol (Fluticasone/Vilanterol 200/25 Blst.W.Dev) 1 puff INHALE DAILY [facility] Last Admin: 06/15/22 11:24 Dose: Not Given Furosemide (Furosemide 20 Mg/2 Ml Vial) 20 mg IVPUSH DAILY [facility]; Protocol Last Admin: 06/15/22 07:57 Dose: 20 mg Guaifenesin (Guaifenesin 200 Mg/10 Ml 10 Ml Liquid) 10 ml PO Q6H [facility] Last Admin: 06/15/22 14:39 Dose: 10 ml Doxycycline Hyclate 100 mg/ (Sodium Chloride) 250 mls @ 166.67 mls/hr IV Q12H [facility] Last Infusion: 06/15/22 16:12 Dose: Infused Ceftriaxone Sodium 1 gm/ (Sodium Chloride) 50 mls @ 100 mls/hr IV Q24H [facility] Last Infusion: 06/15/22 15:18 Dose: Infused Levalbuterol HCl (Levalbuterol Hcl 1.25 Mg/0.5 Ml Vial.Neb) 1.25 mg INHALE Q2H PRN PRN Reason: shortness of breath/wheeze Levalbuterol HCl (Levalbuterol Hcl 1.25 Mg/0.5 Ml Vial.Neb) 1.25 mg INHALE RQ6H WHILE AWAKE [facility] Last Admin: 06/15/22 14:39 Dose: 1.25 mg Levothyroxine Sodium (Levothyroxine Sodium 25 Mcg Tablet) 25 mcg PO MOTUWETHFR@0600 [facility] Last Admin: 06/15/22 05:51 Dose: 25 mcg Levothyroxine Sodium (Levothyroxine Sodium 50 Mcg Tablet) 50 mcg PO SUSA@0600 [facility] Methylprednisolone Sodium Succinate (Methylprednisolone Sod Succ 40 Mg/Ml Vial) 40 mg IVPUSH Q12H [facility] Last Admin: 06/15/22 14:39 Dose: 40 mg Montelukast Sodium (Montelukast Sodium 10 Mg Tablet) 10 mg PO DAILY [facility] Last Admin: 06/15/22 07:57 Dose: 10 mg Montelukast Sodium (Montelukast Sodium 10 Mg Tablet) 10 mg PO BEDTIME [facility] Last Admin: 06/14/22 21:59 Dose: 10 mg Ondansetron HCl (Ondansetron Hcl 4 Mg/2 Ml Vial) 4 mg IVPUSH Q8H PRN PRN Reason: Nausea and Vomiting Pharmacy Consult (Consult Rx Perform Med Rec) 1 each MISCELLANE ONCE PRN PRN Reason: Consult order Sodium Chloride (0.9 % Sodium Chloride Flush 3 Ml Syringe) 3 ml IVFLUSH QSHIFT [facility] Last Admin: 06/15/22 07:11 Dose: Not Given Trazodone HCl (Trazodone Hcl 100 Mg Tablet) 100 mg PO BEDTIME [facility] Last Admin: 06/14/22 21:59 Dose: 100 mg Verapamil HCl (Verapamil Hcl 40 Mg Tablet) 40 mg PO TID [facility]; Protocol Last Admin: 06/15/22 14:51 Dose: 40 mg Warfarin Sodium (Warfarin Sodium 2 Mg Tablet) 2 mg PO DAILY@1800 [facility] Home Medications Medication Instructions Recorded Confirmed Last Taken Type diazepam 5 mg tablet 5 mg PO BID PRN Anxiety and Sleep 11/26/20 06/14/22 06/14/22 03:00 History metoprolol succinate 25 mg 25 mg PO BID 09/29/21 06/14/22 06/13/22 History tablet,extended release 24 hr furosemide 20 mg tablet 20 mg PO DAILY swelling 03/30/22 06/14/22 06/13/22 History ferrous gluconate 324 mg (38 mg 324 mg PO QAM 05/25/22 06/14/22 06/13/22 History iron) tablet levothyroxine 25 mcg tablet 50 mcg PO SUSA@0600 05/25/22 06/14/22 06/12/22 History (Synthroid) rosuvastatin 10 mg tablet 10 mg PO MOWEFR@2100 05/25/22 06/14/22 06/13/22 History guaifenesin 100 mg/5 mL oral 200 mg PO Q4H PRN Cough 06/14/22 06/14/22 06/13/22 History liquid (Tussin) levocetirizine 5 mg tablet 5 mg PO DAILY allergies 06/14/22 06/14/22 06/13/22 History levothyroxine 25 mcg tablet 25 mcg PO MOTUWETHFR@0600 06/14/22 06/14/22 06/13/22 History (Synthroid) prednisone 5 mg tablet 5 mg PO DAILY 06/14/22 06/14/22 06/13/22 History warfarin 1 mg tablet (Jantoven) 1 - 4 tab PO DAILY 06/14/22 06/14/22 06/13/22 History Physical Exam Vital Signs: Vital Signs: Last Vital Signs Temp 97 F 06/15/22 15:08 Pulse 110 H 06/15/22 15:08 Resp 16 06/15/22 15:08 BP 103/53 L 06/15/22 15:08 Pulse Ox 96 06/15/22 15:08 O2 Del Method 06/15/22 15:08 O2 Flow Rate 2 06/15/22 15:08 FiO2 45 06/14/22 11:07 BMI result Body Mass Index 23.0 Const: General: comfortable (But very weak ), no acute distress, alert, awake and tired appearing Orientation/consciousness: patient oriented x3 HEENT: Head: Yes normal to inspection General nose exam: No nasal polyps present and No nasal discharge present Face and sinus: Yes sinuses nontender Mouth: oropharynx normal Throat: Yes posterior oropharynx normal Eyes: General: appearance normal, both eyes and all related structures Neck: Neck: Yes normal visual inspection, Yes no lymphadenopathy, Yes trachea midline and Yes no JVD Thyroid: Thyroid normal Chest: Chest palpation & inspection: normal inspection of the chest, normal palpation of entire chest wall and no tenderness Resp: Other: Percussion note resonant, breath sounds are slightly distant the on both sides, No wheezes or rhonchi are heard at this time. Cardio: Palpation: normal PMI Rate: regular rate Rhythm: regular rhythm Heart sounds: no gallops and no murmurs GI: Palpation (GI): Soft to palpation, nontender, No hepatosplenomegaly present and no masses Auscultation: normal bowel sounds Back/Spine/Pelvis: Thoracic/Lumbar Spine: thoracic and lumbar spine normal to inspection and thoraco-lumbar ROM limited Skin: General skin exam: no rashes or lesions noted Neuro: General: patient oriented x3, No gait normal (Patient is confined to bed at this time) and no focal motor deficits Cranial nerves: Yes CN's II-XII intact bilaterally Extrem: General: Yes normal to inspection, Yes no clubbing, cyanosis or edema and Yes no calf tenderness Psych: Speech and movement: Normal speech and movement present Affect: Anxious affect present Results Laboratory Findings CBC and BMP: 06/15/22 04:11 06/15/22 04:11 ABG, PT/INR, D-dimer: PT/INR, D-dimer PT 19.0 SEC (10.0-13.1) H 06/15/22 04:11 INR 1.6 (0.9-1.1) H 06/15/22 04:11 Abnormal lab findings: Abnormal Labs 06/14/22 06/14/22 06/14/22 05:59 05:59 06:00 WBC 13.3 H RBC Hgb Hct Immature Gran % (Auto) 2.1 H Abs Immat Gran (auto) 0.28 H Absolute Neuts (auto) 8.9 H Absolute Nucleated RBC 0.030 H PT INR aPTT Heparin Protocol VBG pH BUN 25 H Random Glucose 167 H Lactic Acid Lactic Acid F/U @ 2Hr Calcium 10.7 H D Troponin I High Sens 17.7 H B-Natriuretic Peptide 06/14/22 06/14/22 06/14/22 06:00 06:00 09:31 WBC RBC Hgb Hct Immature Gran % (Auto) Abs Immat Gran (auto) Absolute Neuts (auto) Absolute Nucleated RBC PT INR aPTT Heparin Protocol VBG pH BUN Random Glucose Lactic Acid 2.8 H* Lactic Acid F/U @ 2Hr 2.7 H* Calcium Troponin I High Sens B-Natriuretic Peptide 614 H 06/14/22 06/14/22 06/14/22 12:02 16:27 16:27 WBC RBC Hgb Hct Immature Gran % (Auto) Abs Immat Gran (auto) Absolute Neuts (auto) Absolute Nucleated RBC PT 16.7 H INR 1.4 H aPTT Heparin Protocol VBG pH 7.51 H BUN Random Glucose Lactic Acid Lactic Acid F/U @ 2Hr Calcium Troponin I High Sens 302.9 H* D B-Natriuretic Peptide 06/14/22 06/15/22 06/15/22 19:21 04:10 04:11 WBC RBC Hgb Hct Immature Gran % (Auto) Abs Immat Gran (auto) Absolute Neuts (auto) Absolute Nucleated RBC PT 16.4 H 19.0 H INR 1.4 H 1.6 H aPTT Heparin Protocol 35.5 L VBG pH BUN Random Glucose Lactic Acid Lactic Acid F/U @ 2Hr Calcium Troponin I High Sens B-Natriuretic Peptide 1140 H 06/15/22 06/15/22 06/15/22 04:11 04:11 04:11 WBC 17.1 H RBC 3.53 L D Hgb 11.4 L Hct 34.0 L D Immature Gran % (Auto) Abs Immat Gran (auto) Absolute Neuts (auto) Absolute Nucleated RBC PT INR aPTT Heparin Protocol > 200.0 H* D VBG pH BUN 18 H Random Glucose 137 H Lactic Acid Lactic Acid F/U @ 2Hr Calcium Troponin I High Sens B-Natriuretic Peptide 06/15/22 06/15/22 06/15/22 05:47 06:41 07:58 WBC RBC Hgb Hct Immature Gran % (Auto) Abs Immat Gran (auto) Absolute Neuts (auto) Absolute Nucleated RBC PT INR aPTT Heparin Protocol 84.3 H D 33.3 L D VBG pH BUN Random Glucose Lactic Acid Lactic Acid F/U @ 2Hr Calcium Troponin I High Sens 137.6 H* D B-Natriuretic Peptide Microbiology: Microbiology 06/14/22 06:19 Blood - Venous Blood Culture - Preliminary No growth after 24 hours. 06/14/22 06:02 Blood - Venous Blood Culture - Preliminary No growth after 24 hours. Diagnostic Findings Chest x-ray: report reviewed and image reviewed Assessment and Plan (1) COPD (chronic obstructive pulmonary disease): Status: Acute (2) Acute respiratory failure: Status: Acute (3) CHF (congestive heart failure): Status: Acute (4) Pulmonary hypertension: Status: Acute (5) Antiphospholipid antibody syndrome: Status: Acute (6) Radiation fibrosis of lung: Status: Acute (7) KANDY treated with BiPAP: Status: Acute Plan This patient with multiple comorbidities including advanced chronic obstructive pulmonary disease/pulmonary hypertension, past history of pulmonary embolism/DVT, Past history of left upper lobectomy for stage IIIC at the lung, treated with chemoradiation, has some residual pulmonary fibrosis from the radiation, Currently she may have pneumonia in the right lower lobe, though these findings are also secondary to interstitial edema and post radiation fibrosis. Patient also has markedly elevated troponin -1 level, and is being treated for acute coronary syndrome probably due to cardiac stress resulting from hypoxemia. She is relatively stable at this time. Recc. Empirically treat with the antibiotics, combination of ceftriaxone and doxycycline is fine. O2 supplementation to keep O2 sat above 90% Patient should use BiPAP at night, Continue prednisone 5 mg daily, and montelukast [address]. [address] of Advair she can be treated with Breo 200-25 1 inhalation daily May use DuoNeb updraft Q 4-6 hours p.r.n. for acute distress. Thank you for asking me to see this pain. Procedures Date of Service Date of Service: 06/15/22
[2022-06-15] MEDS: Warfarin Sodium 1 MG TABLET PO (18:17)
[2022-06-15] MEDS: Warfarin Sodium 0.5 MG HALFTAB PO (18:18)
[2022-06-15] MEDS: Magnesium Hydrox/Alum Hydrox 30 ML ORAL.SUSP PO (20:37)
[2022-06-15] MEDS: traZODone HCL 100 MG TABLET PO (22:15)
[2022-06-16] VITALS (8 sets, daily range): BP systolic 102–143; BP diastolic 53–75; PULSE 87–110; RESP 16–20; TEMP 36–37; O2SAT 93–98
[2022-06-16] MEDS: Doxycycline Hyclate 100 MG in 0.9 % Sodium Chloride 250 ML 166.67 MG IV ×2 (02:24→14:56)
[2022-06-16] MEDS: methylPREDNISolone Sod Succ 40 MG/ML VIAL IVPUSH ×2 (02:26→11:51)
[2022-06-16] MEDS: 0.9 % Sodium Chloride Flush 3 ML SYRINGE IVFLUSH ×3 (02:27→22:50)
[2022-06-16] MEDS: diazePAM 5 MG TABLET PO (03:25)
[2022-06-16] MEDS: Levothyroxine Sodium 25 MCG TABLET PO (05:43)
[2022-06-16 06:22] LABS: Hematocrit 32.3 % (37.0-47.0); Hemoglobin 10.6 g/dl (12.0-16.0); Mean Corpuscular HGB Conc 32.8 g/dl (31.0-35.0); Mean Corpuscular Volume 97.6 fL (80.0-98.0); Platelet Count 203 X10*3/uL (160-400); Red Blood Count 3.31 X10*6/uL (4.20-5.50); Red Cell Distribution Width 14.9 % (11.0-16.0); White Blood Count 17.7 X10*3/uL (4.8-10.8)
[2022-06-16 06:37] LABS: Anion Gap 13 (12-20); Blood Urea Nitrogen 21 mg/dL (9-16); Calcium 9.2 mg/dL (8.4-10.2); Carbon Dioxide 26 mmol/L (22-29); Chloride 102 mmol/L (96-108); Creatinine Clr Calc Pharmacy 49.6; Estimated Glomerular Filt Rate > 60; Glucose Random 105 mg/dL (60-115); Potassium 4.4 mmol/L (3.3-5.1); Sodium 137 mmol/L (135-145)
[2022-06-16 06:40] LABS: INTERNATIONAL NORM RATIO 1.4 (0.9-1.1); Prothrombin Time 16.4 SEC (10.0-13.1)
--- NOTE | 2022-06-16 09:19 | PM.PNPUL ---
Subjective Subjective Date of Service: 06/16/22 Principal diagnosis: copd excaRBATION , ? OF pNEUMONIA Interval history: 77 YEARS OLD FEMALE SEEN THIS MORNING FOR PULMONARY FOLLOW-UP. Breathing herrera she is definitely better than yesterday, has no distress and is oxygenating well at 2 L/minute. She has no fever or chills. Main issue today is hemoptysis, she is coughing up fresh blood, but in scanty amount. Heparin drip has been stopped since yesterday. IN of or is 1.4. Objective Data Labs CBC & Chem 7: 06/16/22 05:43 06/16/22 05:43 Labs: Laboratory Results - last 24 hr 06/15/22 06/16/22 06/16/22 12:15 05:43 05:43 WBC 17.7 H RBC 3.31 L Hgb 10.6 L Hct 32.3 L MCV 97.6 MCH 32.0 MCHC 32.8 RDW 14.9 Plt Count 203 MPV 11.0 Absolute Nucleated RBC 0.000 Nucleated RBC % (auto) 0.0 PT 16.4 H INR 1.4 H Sodium Potassium Chloride Carbon Dioxide Anion Gap BUN Creatinine Estim Creat Clear Calc Estimated GFR Random Glucose Calcium Nasal Screen MRSA (PCR) NEGATIVE Nasal S. aureus Screen NEGATIVE Nasal MRSA/S.aureus Interp SEE NOTE 06/16/22 05:43 WBC RBC Hgb Hct MCV MCH MCHC RDW Plt Count MPV Absolute Nucleated RBC Nucleated RBC % (auto) PT INR Sodium 137 Potassium 4.4 Chloride 102 Carbon Dioxide 26 Anion Gap 13 BUN 21 H Creatinine 0.76 Estim Creat Clear Calc 49.6 Estimated GFR > 60 Random Glucose 105 Calcium 9.2 Nasal Screen MRSA (PCR) Nasal S. aureus Screen Nasal MRSA/S.aureus Interp Microbiology Microbiology Results: Microbiology 06/14/22 06:19 Blood - Venous Blood Culture - Preliminary No growth after 48 hours. 06/14/22 06:02 Blood - Venous Blood Culture - Preliminary No growth after 48 hours. Physical Exam Vital Signs: Vital Signs: Last Vital Signs Temp 97.2 F 06/16/22 07:48 Pulse 108 H 06/16/22 07:51 Resp 18 06/16/22 07:51 BP 143/75 H 06/16/22 07:48 Pulse Ox 93 06/16/22 07:48 O2 Del Method 12/08/22 07:48 O2 Flow Rate 2 06/16/22 07:48 FiO2 45 06/14/22 11:07 BMI result Body Mass Index 23.0 Const: General: comfortable (But very weak ), no acute distress, alert, awake and tired appearing Orientation/consciousness: patient oriented x3 HEENT: Head: Yes normal to inspection General nose exam: No nasal polyps present and No nasal discharge present Face and sinus: Yes sinuses nontender Mouth: oropharynx normal Throat: Yes posterior oropharynx normal Eyes: General: appearance normal, both eyes and all related structures Neck: Neck: Yes normal visual inspection, Yes no lymphadenopathy, Yes trachea midline and Yes no JVD Thyroid: Thyroid normal Chest: Chest palpation & inspection: normal inspection of the chest, normal palpation of entire chest wall and no tenderness Resp: Other: Percussion note resonant, breath sounds are slightly distant the on both sides, No wheezes or rhonchi are heard at this time. There are a few Creps over the right base. Cardio: Palpation: normal PMI Rate: regular rate Rhythm: regular rhythm Heart sounds: no gallops and no murmurs GI: Palpation (GI): Soft to palpation, nontender, No hepatosplenomegaly present and no masses Auscultation: normal bowel sounds Back/Spine/Pelvis: Thoracic/Lumbar Spine: thoracic and lumbar spine normal to inspection and thoraco-lumbar ROM limited Skin: General skin exam: no rashes or lesions noted Neuro: General: patient oriented x3, No gait normal (Patient is confined to bed at this time) and no focal motor deficits Cranial nerves: Yes CN's II-XII intact bilaterally Extrem: General: Yes normal to inspection, Yes no clubbing, cyanosis or edema and Yes no calf tenderness Psych: Speech and movement: Normal speech and movement present Affect: Anxious affect present Procedures Date of Service Date of Service: 06/16/22 Assessment and Plan Assessment and plan (1) COPD (chronic obstructive pulmonary disease): Status: Acute (2) (HFpEF) heart failure with preserved ejection fraction: Status: Acute (3) Anti-phospholipid antibody syndrome: Status: Acute (4) Chronic respiratory failure: Status: Acute (5) Pulmonary hypertension: Status: Acute (6) Antiphospholipid antibody syndrome: Status: Acute (7) Radiation fibrosis of lung: Problem details: C/B traction bronchiectasis and airway obstructions . Status: Acute (8) KANDY treated with BiPAP: Status: Acute (9) Hemoptysis: Status: Acute Plan Overall the patient is improved. I would recommend to continue present treatment, reduce IV Solu-Medrol to 20 mg q.12 hours. Okay to add Mucomyst, in the updraft treatments. Keep her anticoagulation on the low side.( patient does not feel comfortable in stopping the anticoagulation for a few days) hopefully her hemoptysis will subside over the next 1 or 2 days. If it continues over the weekend then she should have a bronchoscopic exam , early next week. I have discussed with Dr. Henry Kelly who is well aware of her case. Continue the current antibiotic regimen, and rest of the treatment as before. Time Spent With Patient Time: Total time spent is greater than 50% in coordination of care (as documented) at patient's floor/unit and/or counseling patient: Progress Note: Quality Stroke Does the patient have a stroke diagnosis?: No
[2022-06-16] MEDS: Ferrous Sulfate 324 MG TABLET.DR PO (09:33)
[2022-06-16] MEDS: guaiFENesin 200 MG/10 ML 10 ML LIQUID PO ×3 (09:34→20:02)
[2022-06-16] MEDS: Furosemide 20 MG/2 ML VIAL IVPUSH (09:37)
[2022-06-16] MEDS: Metoprolol Succinate ER 25 MG TAB.ER.24H PO ×2 (11:51→20:02)
[2022-06-16] MEDS: Loratadine 10 MG TABLET PO (11:51)
--- NOTE | 2022-06-16 13:27 | HO.PM.IMPN ---
Subjective Subjective Date of Service: 06/16/22 Interval History: continuing to have small amounts hemoptysis chronic chest pain no fever very anxious refuses NAC + verapamil Review of Systems Review of Systems: Yes all other systems are reviewed and are negative Physical Exam Vital Signs: Vital Signs: Last Vital Signs Temp 96.8 F 06/16/22 10:58 Pulse 101 H 06/16/22 10:58 Resp 20 06/16/22 10:58 BP 123/59 L 06/16/22 10:58 Pulse Ox 96 06/16/22 10:58 O2 Del Method 06/16/22 10:58 O2 Flow Rate 2 06/16/22 10:58 FiO2 45 06/14/22 11:07 BMI result Body Mass Index 23.0 Gen: NAD HEENT: sclera anicteric, moist mucus membranes Neck: supple Lungs: decreased air entry L base Heart: regular rate and rhythm, no murmurs, chest wall tenderness Abd: soft, non-tender, non-distended Ext: no edema Skin: warm/well-perfused Neuro: alert and oriented x3, no focal findings Psych: appropriate affect Objective Data Active Medications Acetaminophen (Acetaminophen 325 Mg Tablet) 650 mg PO Q6H PRN PRN Reason: Pain, Mild (Pain Scale 1-3) Albuterol/Ipratropium (Albuterol/Iprat 2.5/0.5mg 3 Ml Ampul.Neb) 3 ml INHALE RQ4H PRN PRN Reason: whezing Atorvastatin Calcium (Atorvastatin Calcium 40 Mg Tablet) 40 mg PO MOWEFR [facility] Last Admin: 06/15/22 07:56 Dose: Not Given Documented By: ISADORA Non-Admin Reason: Patient Refused Diazepam (Diazepam 5 Mg Tablet) 5 mg PO BID PRN PRN Reason: Anxiety and Sleep Last Admin: 06/16/22 03:25 Dose: 5 mg Documented By: ALIX Ferrous Sulfate (Ferrous Sulfate 324 Mg Tablet.) 324 mg PO DAILY [facility] Last Admin: 06/16/22 09:33 Dose: 324 mg Documented By: AUSTYN Fluticasone/Vilanterol (Fluticasone/Vilanterol 200/25 Blst.W.Dev) 1 puff INHALE DAILY [facility] Last Admin: 06/16/22 07:48 Dose: Not Given Documented By: ARMINDA Non-Admin Reason: Med Not Available Furosemide (Furosemide 20 Mg Tablet) 20 mg PO DAILY [facility]; Protocol Guaifenesin (Guaifenesin 200 Mg/10 Ml 10 Ml Liquid) 10 ml PO Q6H [facility] Last Admin: 06/16/22 09:34 Dose: 10 ml Documented By: AUSTYN Doxycycline Hyclate 100 mg/ (Sodium Chloride) 250 mls @ 166.67 mls/hr IV Q12H [facility] Last Infusion: 06/16/22 05:02 Dose: 0 mls/hr Documented By: ALIX Ceftriaxone Sodium 1 gm/ (Sodium Chloride) 50 mls @ 100 mls/hr IV Q24H [facility] Last Infusion: 06/15/22 15:18 Dose: 0 mls/hr Documented By: AUSTYN Levalbuterol HCl (Levalbuterol Hcl 1.25 Mg/0.5 Ml Vial.Neb) 1.25 mg INHALE Q2H PRN PRN Reason: shortness of breath/wheeze Levalbuterol HCl (Levalbuterol Hcl 1.25 Mg/0.5 Ml Vial.Neb) 1.25 mg INHALE RQ6H WHILE AWAKE [facility] Last Admin: 06/16/22 13:27 Dose: Not Given Documented By: ARMINDA Non-Admin Reason: pt unavail at this time Levothyroxine Sodium (Levothyroxine Sodium 25 Mcg Tablet) 25 mcg PO MOTUWETHFR@0600 [facility] Last Admin: 06/16/22 05:43 Dose: 25 mcg Documented By: ALIX Levothyroxine Sodium (Levothyroxine Sodium 50 Mcg Tablet) 50 mcg PO SUSA@0600 [facility] Loratadine (Loratadine 10 Mg Tablet) 10 mg PO DAILY [facility] Last Admin: 06/16/22 11:51 Dose: 10 mg Documented By: AUSTYN Methylprednisolone Sodium Succinate (Methylprednisolone Sod Succ 40 Mg/Ml Vial) 40 mg IVPUSH Q24H [facility] Last Admin: 06/16/22 11:51 Dose: 40 mg Documented By: AUSTYN Metoprolol Succinate (Metoprolol Succinate Er 25 Mg Tab.Er.24h) 25 mg PO BID [facility]; Protocol Last Admin: 06/16/22 11:51 Dose: 25 mg Documented By: AUSTYN Montelukast Sodium (Montelukast Sodium 10 Mg Tablet) 10 mg PO BEDTIME [facility] Last Admin: 06/15/22 20:36 Dose: 10 mg Documented By: ALIX Omeprazole (Omeprazole 20 Mg Capsule.Dr) 20 mg PO DAILY PRN PRN Reason: GERD Ondansetron HCl (Ondansetron Hcl 4 Mg/2 Ml Vial) 4 mg IVPUSH Q8H PRN PRN Reason: Nausea and Vomiting Pharmacy Consult (Consult Rx Perform Med Rec) 1 each MISCELLANE ONCE PRN PRN Reason: Consult order Sodium Chloride (0.9 % Sodium Chloride Flush 3 Ml Syringe) 3 ml IVFLUSH QSHIFT [facility] Last Admin: 06/16/22 09:34 Dose: 3 ml Documented By: AUSTYN Trazodone HCl (Trazodone Hcl 100 Mg Tablet) 100 mg PO BEDTIME [facility] Last Admin: 06/15/22 22:15 Dose: 100 mg Documented By: ALIX Warfarin Sodium (Warfarin Sodium 1 Mg Tablet) 1 mg PO DAILY@1800 [facility] Last Admin: 06/15/22 18:17 Dose: 1 mg Documented By: AUSTYN Warfarin Sodium (Warfarin Sodium 0.5 Mg Halftab) 0.5 mg PO DAILY@1800 [facility] Last Admin: 06/15/22 18:18 Dose: 0.5 mg Documented By: AUSTYN Labs CBC & Chem 7: 06/16/22 05:43 06/16/22 05:43 Labs: Laboratory Results - last 24 hr 06/15/22 06/16/22 06/16/22 12:15 05:43 05:43 MCV 97.6 MCH 32.0 MCHC 32.8 RDW 14.9 Plt Count 203 MPV 11.0 Absolute Nucleated RBC 0.000 Nucleated RBC % (auto) 0.0 PT 16.4 H INR 1.4 H Anion Gap Estim Creat Clear Calc Estimated GFR Random Glucose Calcium Nasal Screen MRSA (PCR) NEGATIVE Nasal S. aureus Screen NEGATIVE Nasal MRSA/S.aureus Interp SEE NOTE 06/16/22 05:43 MCV MCH MCHC RDW Plt Count MPV Absolute Nucleated RBC Nucleated RBC % (auto) PT INR Anion Gap 13 Estim Creat Clear Calc 49.6 Estimated GFR > 60 Random Glucose 105 Calcium 9.2 Nasal Screen MRSA (PCR) Nasal S. aureus Screen Nasal MRSA/S.aureus Interp TTE 06/15/22 - Normal left ventricular cavity size.? There is mildly increased left ventricular wall thickness.? The left ventricular systolic? function is normal.? The visually estimated ejection fraction is between 55-60%.? - Spectral Doppler is indicative of an impaired relaxation ? ? ? filling pattern.? Elevated filling pressures.? - The apical lateral segment is hypokinetic. ? - The apex and apical septum segments are akinetic.? - Normal right ventricular cavity size and systolic function.? ? - There is no evidence of interatrial shunt by color Doppler and contrast.? - There is moderate tricuspid valve regurgitation.? Normal right atrial pressure.? Mild pulmonary hypertension is present.? Microbiology Microbiology Results: Microbiology 06/14/22 06:19 Blood Culture - Preliminary Blood - Venous No growth after 48 hours. 06/14/22 06:02 Blood Culture - Preliminary Blood - Venous No growth after 48 hours. Assessment and Plan (1) COPD (chronic obstructive pulmonary disease): Status: Acute Plan hospital d#3 77 yo F with COPD + KANDY on biPAP and home O2 [2L as needed], pulmonary HTN, antiphospholipid antibody syndrome with hx of PE/DVT on chronic warfarin [goal INR 1.5-2 rather than 2.5-3 due to platelet dysfunction per her paralegal Ronald Mills at [facility]], stage IIIA lung CA s/p LULobectomy and neoadjunvant chemoradiation, radiation pulmonary fibrosis, nonobstructive CAD s/p NSTEMI, HFpEF, hypogammoglobulinemia, hypothyroidism, and recent admission here for influenza A with COPD exacerbation, presenting here with dyspnea and found to have hypoxia with pulmonary interstitial edema and L basilar infiltrate. # NSTEMI # hx nonocculsive CAD - suspect demand due to hypoxia rather than ACS but has WMAs on TTE. pt had cardiac cath 1 yr ago showing 40-50% occlusion in mid-LAD. pt at risk of rapidly progressive CAD due to APA, though. however, cannot anticoagulate given hemoptysis- discuss with Pulm + Cardiology and continue rosuvastatin, metoprolol # hemoptysis - per her stand up comedian Dr Kelly she gets bland DAH after flash pulmonary edema. monitor for now; if worsens, may need to d/c warfarin # severe sepsis due to PNA - ceftriaxone/doxycycline d#3, trend PCT, follow BCx, urinary antigens for pneumococcus and Legionella pending,MRSA swab negative - lactic acidosis resolved # COPD exacerbation - IV steroids- taper; nebulized bronchodilators; continue ICS/LABA # HFpEF exacerbation, resolved - V->PO furosemide, monitor electrolytes/I+O/BNP.? continue metoprolol # [id number] hypoxic respiratory failure - supplemental O2, wean as tolerated # KANDY - biPAP at night # antiphospholipid antibody syndrome - warfarin, goal INR 1.5-2 as above due to delicate balance between bleeding on clotting # hypothyroidism - levothyroxine # VTE ppx: warfarin In my clinical judgment, the patient requires continued inpatient hospitalization for the following reasons: IV ABX, hypoxia,NSTEMI Quality Stroke Does the patient have a stroke diagnosis?: No VTE Prior VTE?: No VTE Risk Level:: Medical - moderate - high VTE Device Contraindication: N/A - Device Ordered VTE Drug Contraindication: N/A - Med Ordered
[2022-06-16] MEDS: cefTRIAXone sodium 1 GM in 0.9 % Sodium Chloride 50 ML IV (15:00)
[2022-06-16] MEDS: Warfarin Sodium 0.5 MG HALFTAB PO (17:32)
[2022-06-16] MEDS: Warfarin Sodium 1 MG TABLET PO (17:33)
[2022-06-16] MEDS: Fluticasone/Vilanterol 200/25 BLST.W.DEV 1 PUFF INHALE (19:46)
[2022-06-16] MEDS: Montelukast Sodium 10 MG TABLET PO (20:05)
[2022-06-16] MEDS: traZODone HCL 100 MG TABLET PO (22:48)
[2022-06-17] VITALS (11 sets, daily range): BP systolic 99–118; BP diastolic 53–76; PULSE 78–108; RESP 14–18; TEMP 36.1–37.1; O2SAT 93–98
[2022-06-17] MEDS: Doxycycline Hyclate 100 MG in 0.9 % Sodium Chloride 250 ML 166.67 MG IV ×2 (02:51→13:31)
[2022-06-17] MEDS: Levothyroxine Sodium 25 MCG TABLET PO (04:25)
[2022-06-17] MEDS: guaiFENesin 200 MG/10 ML 10 ML LIQUID PO ×4 (04:25→20:13)
[2022-06-17] MEDS: diazePAM 5 MG TABLET PO (04:25)
[2022-06-17 06:40] LABS: Hematocrit 35.4 % (37.0-47.0); Hemoglobin 11.2 g/dl (12.0-16.0); Mean Corpuscular HGB Conc 31.6 g/dl (31.0-35.0); Mean Corpuscular Hemoglobin 31.9 pg (27.0-33.0); Mean Corpuscular Volume 100.9 fL (80.0-98.0); Mean Platelet Volume 10.8 fL (9.4-12.3); Platelet Count 207 X10*3/uL (160-400); Red Blood Count 3.51 X10*6/uL (4.20-5.50)
[2022-06-17 07:04] LABS: B Type Natriuretic Peptide 1053 pg/mL (<100)
[2022-06-17 07:11] LABS: INTERNATIONAL NORM RATIO 1.6 (0.9-1.1); Prothrombin Time 18.4 SEC (10.0-13.1)
[2022-06-17 07:23] LABS: Anion Gap 12 (12-20); Blood Urea Nitrogen 21 mg/dL (9-16); Calcium 9.5 mg/dL (8.4-10.2); Carbon Dioxide 30 mmol/L (22-29); Chloride 99 mmol/L (96-108); Creatinine Clr Calc Pharmacy 46.6; Estimated Glomerular Filt Rate > 60; Glucose Random 102 mg/dL (60-115); Potassium 4.3 mmol/L (3.3-5.1); Sodium 137 mmol/L (135-145)
[2022-06-17 07:38] LABS: Procalcitonin 0.03 ng/mL
[2022-06-17] MEDS: Loratadine 10 MG TABLET PO (10:09)
[2022-06-17] MEDS: Ferrous Sulfate 324 MG TABLET.DR PO (10:09)
[2022-06-17] MEDS: Furosemide 20 MG TABLET PO (10:09)
[2022-06-17] MEDS: Metoprolol Succinate ER 25 MG TAB.ER.24H PO ×2 (10:10→20:12)
[2022-06-17] MEDS: methylPREDNISolone Sod Succ 40 MG/ML VIAL IVPUSH (10:10)
[2022-06-17] MEDS: 0.9 % Sodium Chloride Flush 3 ML SYRINGE IVFLUSH ×2 (10:10→21:54)
--- NOTE | 2022-06-17 12:59 | PM.PNCARD ---
Subjective Subjective Date of Service: 06/17/22 <MAGDA Longo - Last Filed: 06/17/22 13:21> 06/17/22 <Giovanny Reynaga MD - Last Filed: 06/17/22 14:20> Principal diagnosis: COPD, NSTEMI <MAGDA Longo - Last Filed: 06/17/22 13:21> Interval history: Seen at 1030. Today she reports breathing good at times and not at other times. Still having hemoptysis and shows me pictures that she has taken. Reports chest discomfort all the time which is not new. She can feel heart palpitations when she has SVT. No dizziness, presyncope, edema. Did not sleep well last night. Sitting up in chair at present. Tells me she does not want to take Verapamil but will take her usual Metoprolol. Tele shows SR, runs of elevated rate consistent with SVT, rate average 90-100 and bursts to 140s. <MAGDA Longo - Last Filed: 06/17/22 13:21> Review of Systems Review of Systems as above <MAGDA Longo - Last Filed: 06/17/22 13:21> Yes all other systems are reviewed and are negative <MAGDA Longo - Last Filed: 06/17/22 13:21> Physical Exam Vital Signs: Last Vital Signs Temp 98.3 F 06/17/22 12:00 Pulse 89 06/17/22 12:00 Resp 16 06/17/22 12:00 BP 99/54 L 06/17/22 12:00 Pulse Ox 97 06/17/22 08:00 O2 Del Method 06/17/22 12:00 O2 Flow Rate 2 06/17/22 12:00 FiO2 45 06/14/22 11:07 BMI result Body Mass Index 23.0 <MAGDA Longo - Last Filed: 06/17/22 13:21> Const General: cooperative, healthy appearing, comfortable and no acute distress <MAGDA Longo - Last Filed: 06/17/22 13:21> Neck Neck: Yes normal visual inspection <MAGDA Longo - Last Filed: 06/17/22 13:21> Resp Other: Lung sounds diminished left base and few rales right base <Kristel Ferrer NP-C - Last Filed: 06/17/22 13:21> Effort & Inspection: normal respiratory effort <Kristel Ferrer NPC - Last Filed: 06/17/22 13:21> Auscultation: clear to auscultation bilaterally and no wheezes <Kristel Ferrer NPC - Last Filed: 06/17/22 13:21> Cardio Jugular venous distension: no JVD <[facility] Ferrer [facility] - Last Filed: 06/17/22 13:21> Rate: regular rate <Kristel Ferrer NPC - Last Filed: 06/17/22 13:21> Rhythm: regular rhythm <Kristel Ferrer [facility] - Last Filed: 06/17/22 13:21> Heart sounds: S1 normal heart sound present, S2 normal heart sound present, no gallops, no murmurs and no rubs <Kristel Ferrer NP-C - Last Filed: 06/17/22 13:21> Peripheral pulses: Peripheral pulses 2+ throughout <Kristel Ferrer [facility]-C - Last Filed: 06/17/22 13:21> GI Inspection: Yes normal to inspection <Kristel Ferrer NP-C - Last Filed: 06/17/22 13:21> Extrem General: Yes normal to inspection <Kristel Ferrer NP-C - Last Filed: 06/17/22 13:21> Psych Appearance: grossly normal <Kristel Ferrer NPC - Last Filed: 06/17/22 13:21> Mental Status: mental status grossly normal <Kristel Ferrer NP-C - Last Filed: 06/17/22 13:21> Speech and movement: Normal speech and movement present <Kristel Ferrer NPC - Last Filed: 06/17/22 13:21> Objective Labs and Meds Result diagrams: : 06/17/22 06:20 06/17/22 06:20 <Kristel Ferrer NP-C - Last Filed: 06/17/22 13:21> Lab results: Laboratory Results - last 24 hr 12/03/3106/17/22 06/17/22 06:20 06:20 06:20 WBC 16.0 H RBC 3.51 L Hgb 11.2 L Hct 35.4 L MCV 100.9 H MCH 31.9 MCHC 31.6 RDW 15.0 Plt Count 207 MPV 10.8 Absolute Nucleated RBC 0.000 Nucleated RBC % (auto) 0.0 PT 18.4 H INR 1.6 H Sodium 137 Potassium 4.3 Chloride 99 Carbon Dioxide 30 H Anion Gap 12 BUN 21 H Creatinine 0.81 Estim Creat Clear Calc 46.6 Estimated GFR > 60 Random Glucose 102 Calcium 9.5 B-Natriuretic Peptide Procalcitonin 06/17/22 06/17/22 06:20 06:20 WBC RBC Hgb Hct MCV MCH MCHC RDW Plt Count MPV Absolute Nucleated RBC Nucleated RBC % (auto) PT INR Sodium Potassium Chloride Carbon Dioxide Anion Gap BUN Creatinine Estim Creat Clear Calc Estimated GFR Random Glucose Calcium B-Natriuretic Peptide 1053 H Procalcitonin 0.03 <MAGDA Longo - Last Filed: 06/17/22 13:21> Progress Note: A&P Assessment and plan (1) COPD exacerbation: Status: Resolved <MAGDA Longo - Last Filed: 06/17/22 13:21> Assessment and Plan: Hx COPD and follows with pulmonlogy. Admit with increased sob, most consistent with COPD exacerbation. BNP is elevated at 1053 today ( 1040 yesterday) however she does not appear to have fluid overload on exam. She is wearing O2 1 liter, recieving her usual Lasix 20mg po daily and treatment for COPD as directed by pulmonogy. Breathing is comfortable at rest. She reports sob with activity. She does have hemoptysis which she says she has had in the past, but not to this degree. For possible mild CHF, along with COPD, will continue on daily Lasix. Will recheck BNP in am. If increasing then may need to diurese some. We will follow. <MAGDA Longo - Last Filed: 06/17/22 13:21> (2) NSTEMI (non-ST elevated myocardial infarction): Status: Acute <MAGDA Longo - Last Filed: 06/17/22 13:21> Assessment and Plan: Hx nonobstructive CAD. Echo showed EF 55-60%, apical lateral hypokinetic, apex and apical septum akinetic, moderate TR, mild pulmonary hypertension. Troponin elevated this admit. Could be secondary NSTEMI related to heart strain from COPD exacerbation however ischemia not entirely ruled out. She is currently on Coumadin for her anti phospholipid antibody syndrome. INR 1.6 today. She is having hemoptysis. Recommend holding Coumadin. If hemoptysis stops and INR less than 1.5 would start on heparin drip for anticoagulation. She will need a cardiac catheterization for further evaluation, once medically appropriate. Discuss this plan with her. Continue statin and metoprolol. <Kristel Ferrer, ALON-C - Last Filed: 06/17/22 13:21> Hx nonobstructive CAD. Echo showed EF 55-60%, apical lateral hypokinetic, apex and apical septum akinetic, moderate TR, mild pulmonary hypertension. Troponin elevated this admit. Could be secondary NSTEMI related to heart strain from COPD exacerbation however ischemia not entirely ruled out. She is currently on Coumadin for her anti phospholipid antibody syndrome. INR 1.6 today. She is having hemoptysis. Recommend holding Coumadin. If hemoptysis stops and INR less than 1.5 would start on heparin drip for anticoagulation. She will need a cardiac catheterization for further evaluation, once medically appropriate. Discuss this plan with her. Continue statin and metoprolol. Patient seen and examined. Case discussed with Krsitel Ferrer Patient present with acute respiratory failure with hypoxemia with elevated troponins. Echocardiogram showing wall motion abnormality in the distal LAD territory. Question progressive coronary artery disease causing her recurrent respiratory failure with pulmonary edema worse is stress-induced cardiomyopathy versus thrombotic/embolic occlusion of LAD given her clotting abnormality. Although she requires cardiac catheterization to further evaluate this. Given her hemoptysis, this needs to be postponed till hemoptysis resolves. Would consider stopping her oral anticoagulant therapy till hemoptysis stops and then restart on IV heparin to see if this she would be tolerated. Patient is very nervous about this, however discuss that heparin is readily reversible with her shorter half life than warfarin therapy. If she require stenting, this will also complicate her issue given her platelet dysfunction. Need to discuss with Hematology at [facility] regarding use of antiplatelet agent in addition to warfarin therapy if the need arises. Patient says she is very nervous and anxious and is asking for further therapy related to it. Psychiatric consult has been requested. Continue metoprolol and statin therapy. <Giovanny Reynaga MD - Last Filed: 06/17/22 14:20> (3) SVT (supraventricular tachycardia): Status: Acute <MAGDA Longo - Last Filed: 06/17/22 13:21> Assessment and Plan: Episodes of SVT seen on tele monitoring. Patient does report feeling heart palpitations at times. She is normally on metoprolol XL 25 mg b.i.d.. At present she is only receiving it once daily. Will increase her dose to b.i.d. ongoing tele monitoring. <MAGDA Longo - Last Filed: 06/17/22 13:21> Episodes of SVT seen on tele monitoring. Patient does report feeling heart palpitations at times. She is normally on metoprolol XL 25 mg b.i.d.. At present she is only receiving it once daily. Will increase her dose to b.i.d. ongoing tele monitoring. Noted SVT in the morning. Increase metoprolol to 25 mg b.i.d. and will further titrate. <Giovanny Reynaga MD - Last Filed: 06/17/22 14:20> (4) (HFpEF) heart failure with preserved ejection fraction: Status: Acute <MAGDA Longo - Last Filed: 06/17/22 13:21> (5) Hemoptysis: Status: Acute <MAGDA Longo - Last Filed: 06/17/22 13:21> (6) Elevated troponin: Status: Acute <MAGDA Longo - Last Filed: 06/17/22 13:21> Time Spent With Patient Time: Total time spent is greater than 50% in coordination of care (as documented) at patient's floor/unit and/or counseling patient: 22 <MAGDA Longo - Last Filed: 06/17/22 13:21> Progress Note: Quality Stroke Does the patient have a stroke diagnosis?: No <MAGDA Longo - Last Filed: 06/17/22 13:21> Procedures Date of Service Date of Service: 06/17/22 <MAGDA Longo - Last Filed: 06/17/22 13:21>
--- NOTE | 2022-06-17 13:06 | HO.PM.IMPN ---
Subjective Subjective Date of Service: 06/18/22 Interval History: anxious continuing to have minor hemoptysis chronic chest pain Review of Systems Review of Systems: Yes all other systems are reviewed and are negative Physical Exam Vital Signs: Vital Signs: Last Vital Signs Temp 98.3 F 06/17/22 12:00 Pulse 89 06/17/22 12:00 Resp 16 06/17/22 12:00 BP 99/54 L 06/17/22 12:00 Pulse Ox 97 06/17/22 08:00 O2 Del Method 06/17/22 12:00 O2 Flow Rate 2 06/17/22 12:00 FiO2 45 06/14/22 11:07 BMI result Body Mass Index 23.0 Gen: NAD HEENT: sclera anicteric, moist mucus membranes Neck: supple Lungs: decreased air entry L base Heart: regular rate and rhythm, no murmurs, chest wall tenderness Abd: soft, non-tender, non-distended Ext: no edema Skin: warm/well-perfused Neuro: alert and oriented x3, no focal findings Psych: appropriate affect Objective Data Active Medications Acetaminophen (Acetaminophen 325 Mg Tablet) 650 mg PO Q6H PRN PRN Reason: Pain, Mild (Pain Scale 1-3) Albuterol/Ipratropium (Albuterol/Iprat 2.5/0.5mg 3 Ml Ampul.Neb) 3 ml INHALE RQ4H PRN PRN Reason: whezing Atorvastatin Calcium (Atorvastatin Calcium 40 Mg Tablet) 40 mg PO MOWEFR MATHEW Last Admin: 06/17/22 10:14 Dose: Not Given Documented By: AUSTYN Non-Admin Reason: Patient Refused Diazepam (Diazepam 5 Mg Tablet) 5 mg PO BID PRN PRN Reason: Anxiety and Sleep Last Admin: 06/17/22 04:25 Dose: 5 mg Documented By: NYLA Ferrous Sulfate (Ferrous Sulfate 324 Mg Tablet.Dr) 324 mg PO DAILY [facility] Last Admin: 06/17/22 10:09 Dose: 324 mg Documented By: AUSTYN Fluticasone/Vilanterol (Fluticasone/Vilanterol 200/25 Blst.W.Dev) 1 puff INHALE RDAILY@1999 [facility] Furosemide (Furosemide 20 Mg Tablet) 20 mg PO DAILY [facility]; Protocol Last Admin: 06/17/22 10:09 Dose: 20 mg Documented By: AUSTYN Guaifenesin (Guaifenesin 200 Mg/10 Ml 10 Ml Liquid) 10 ml PO Q6H [facility] Last Admin: 06/17/22 10:09 Dose: 10 ml Documented By: AUSTYN Doxycycline Hyclate 100 mg/ (Sodium Chloride) 250 mls @ 166.67 mls/hr IV Q12H [facility] Last Infusion: 06/17/22 04:46 Dose: 0 mls/hr Documented By: NYLA Ceftriaxone Sodium 1 gm/ (Sodium Chloride) 50 mls @ 100 mls/hr IV Q24H [facility] Last Infusion: 06/16/22 16:06 Dose: 0 mls/hr Documented By: AUSTYN Levalbuterol HCl (Levalbuterol Hcl 1.25 Mg/0.5 Ml Vial.Neb) 1.25 mg INHALE Q2H PRN PRN Reason: shortness of breath/wheeze Last Admin: 06/16/22 16:33 Dose: 1.25 mg Documented By: ARMINDA Levalbuterol HCl (Levalbuterol Hcl 1.25 Mg/0.5 Ml Vial.Neb) 1.25 mg INHALE RQ6H WHILE AWAKE [facility] Last Admin: 06/17/22 08:09 Dose: 1.25 mg Documented By: SANTOS Levothyroxine Sodium (Levothyroxine Sodium 25 Mcg Tablet) 25 mcg PO MOTUWETHFR@0600 [facility] Last Admin: 06/17/22 04:25 Dose: 25 mcg Documented By: NYLA Levothyroxine Sodium (Levothyroxine Sodium 50 Mcg Tablet) 50 mcg PO SUSA@0600 [facility] Loratadine (Loratadine 10 Mg Tablet) 10 mg PO DAILY [facility] Last Admin: 06/17/22 10:09 Dose: 10 mg Documented By: AUSTYN Methylprednisolone Sodium Succinate (Methylprednisolone Sod Succ 40 Mg/Ml Vial) 40 mg IVPUSH Q24H [facility] Last Admin: 06/17/22 10:10 Dose: 40 mg Documented By: AUSTYN Metoprolol Succinate (Metoprolol Succinate Er 25 Mg Tab.Er.24h) 25 mg PO BID [facility]; Protocol Last Admin: 06/17/22 10:10 Dose: 25 mg Documented By: AUSTYN Montelukast Sodium (Montelukast Sodium 10 Mg Tablet) 10 mg PO BEDTIME [facility] Last Admin: 06/16/22 20:05 Dose: 10 mg Documented By: GORDO Omeprazole (Omeprazole 20 Mg Capsule.Dr) 20 mg PO DAILY PRN PRN Reason: GERD Ondansetron HCl (Ondansetron Hcl 4 Mg/2 Ml Vial) 4 mg IVPUSH Q8H PRN PRN Reason: Nausea and Vomiting Pharmacy Consult (Consult Rx Perform Med Rec) 1 each MISCELLANE ONCE PRN PRN Reason: Consult order Sodium Chloride (0.9 % Sodium Chloride Flush 3 Ml Syringe) 3 ml IVFLUSH QSHIFT [facility] Last Admin: 06/17/22 10:10 Dose: 3 ml Documented By: AUSTYN Trazodone HCl (Trazodone Hcl 100 Mg Tablet) 100 mg PO BEDTIME [facility] Last Admin: 06/16/22 22:48 Dose: 100 mg Documented By: GORDO Warfarin Sodium (Warfarin Sodium 1 Mg Tablet) 1 mg PO DAILY@1800 [facility] Last Admin: 06/16/22 17:33 Dose: 1 mg Documented By: AUSTYN Warfarin Sodium (Warfarin Sodium 0.5 Mg Halftab) 0.5 mg PO DAILY@1800 [facility] Last Admin: 06/16/22 17:32 Dose: 0.5 mg Documented By: AUSTYN Labs CBC & Chem 7: 06/18/22 06:15 06/17/22 06:20 Labs: Laboratory Results - last 24 hr 06/17/22 06/17/22 06/17/22 06:20 06:20 06:20 MCV 100.9 H MCH 31.9 MCHC 31.6 RDW 15.0 Plt Count 207 MPV 10.8 Absolute Nucleated RBC 0.000 Nucleated RBC % (auto) 0.0 PT 18.4 H INR 1.6 H Anion Gap 12 Estim Creat Clear Calc 46.6 Estimated GFR > 60 Random Glucose 102 Calcium 9.5 B-Natriuretic Peptide Procalcitonin 06/17/22 06/17/22 06:20 06:20 MCV MCH MCHC RDW Plt Count MPV Absolute Nucleated RBC Nucleated RBC % (auto) PT INR Anion Gap Estim Creat Clear Calc Estimated GFR Random Glucose Calcium B-Natriuretic Peptide 1053 H Procalcitonin 0.03 Microbiology Microbiology Results: Microbiology 06/14/22 06:19 Blood Culture - Preliminary Blood - Venous No growth after 48 hours. 06/14/22 06:02 Blood Culture - Preliminary Blood - Venous No growth after 48 hours. Assessment and Plan (1) Hemoptysis: Status: Acute Plan hospital d#4 77 yo F with COPD + KANDY on biPAP and home O2 [2L as needed], pulmonary HTN, antiphospholipid antibody syndrome with hx of PE/DVT on chronic warfarin [goal INR 1.5-2 rather than 2.5-3 due to platelet dysfunction per her gas main and line fitter Ronald Mills at [facility]], stage IIIA lung CA s/p LULobectomy and neoadjunvant chemoradiation, radiation pulmonary fibrosis, nonobstructive CAD s/p NSTEMI, HFpEF, hypogammoglobulinemia, hypothyroidism, and recent admission here for influenza A with COPD exacerbation, presenting here with dyspnea and found to have hypoxia with pulmonary interstitial edema and L basilar infiltrate. # NSTEMI # hx nonocculsive CAD - has WMAs on TTE. pt had cardiac cath 1 yr ago showing 40-50% occlusion in mid-LAD but is at risk of rapidly progressive CAD due to APA. ideally would undergo cardiac catheterization; however, cannot anticoagulate given hemoptysis- per Pulm, wait for hemoptysis to resolve over next few days # hemoptysis - per her credit control administrator Dr Kelly she gets bland DAH after flash pulmonary edema. monitor for now; if worsens, may need to d/c warfarin + get bronchoscopy # severe sepsis due to PNA - ceftriaxone/doxycycline d#10/12, BCx negative, PCT low, urinary antigens for pneumococcus and Legionella pending, MRSA swab negative - lactic acidosis resolved # COPD exacerbation - IV steroids- taper; nebulized bronchodilators; continue ICS/LABA # HFpEF exacerbation, resolved - IV->PO furosemide, monitor electrolytes/I+O/BNP.? continue metoprolol # [id number] hypoxic respiratory failure - on baseline 2L O2 via NC # KANDY - biPAP at night # antiphospholipid antibody syndrome - warfarin, goal INR 1.5-2 as above due to delicate balance between bleeding and clotting; INR 1.6 today # hypothyroidism - levothyroxine # VTE ppx: warfarin In my clinical judgment, the patient requires continued inpatient hospitalization for the following reasons: IV ABX, hypoxia, NSTEMI Quality Stroke Does the patient have a stroke diagnosis?: No VTE Prior VTE?: No VTE Risk Level:: Medical - moderate - high VTE Device Contraindication: N/A - Device Ordered VTE Drug Contraindication: N/A - Med Ordered
[2022-06-17] MEDS: cefTRIAXone sodium 1 GM in 0.9 % Sodium Chloride 50 ML IV (13:32)
--- NOTE | 2022-06-17 13:47 | MHC.CM.PN ---
Per ROUNDS discussion, Patient is spitting up blood and not yet medically cleared for dc. Home/resume services is the goal and CM will continue to follow.
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
[2022-06-17] MEDS: Warfarin Sodium 1 MG TABLET PO (18:03)
[2022-06-17] MEDS: Fluticasone/Vilanterol 200/25 BLST.W.DEV 1 PUFF INHALE (18:58)
[2022-06-17] MEDS: Montelukast Sodium 10 MG TABLET PO (20:12)
[2022-06-17] MEDS: Meclizine HCl 25 MG TABLET PO (20:13)
[2022-06-17] MEDS: traZODone HCL 100 MG TABLET PO (21:52)
[2022-06-18] VITALS (11 sets, daily range): BP systolic 97–132; BP diastolic 55–87; PULSE 78–88; RESP 16–20; TEMP 36.4–37.1; O2SAT 94–100
[2022-06-18] MEDS: Doxycycline Monohydrate 100 MG CAPSULE PO ×2 (01:02→14:06)
[2022-06-18] MEDS: guaiFENesin 200 MG/10 ML 10 ML LIQUID PO ×4 (01:02→20:10)
[2022-06-18] MEDS: Levothyroxine Sodium 50 MCG TABLET PO (04:14)
[2022-06-18] MEDS: diazePAM 5 MG TABLET PO (04:14)
[2022-06-18 06:39] LABS: Hematocrit 31.7 % (37.0-47.0); Hemoglobin 10.3 g/dl (12.0-16.0); Mean Corpuscular HGB Conc 32.5 g/dl (31.0-35.0); Mean Corpuscular Volume 98.4 fL (80.0-98.0); Mean Platelet Volume 11.1 fL (9.4-12.3); NRBC Pct Auto 0.2 /100WBC (0.0-0.2); Platelet Count 193 X10*3/uL (160-400); Red Blood Count 3.22 X10*6/uL (4.20-5.50); Red Cell Distribution Width 14.7 % (11.0-16.0); White Blood Count 12.7 X10*3/uL (4.8-10.8)
[2022-06-18 06:45] LABS: INTERNATIONAL NORM RATIO 1.7 (0.9-1.1); Prothrombin Time 19.4 SEC (10.0-13.1)
[2022-06-18] MEDS: Omeprazole 20 MG CAPSULE.DR PO (09:18)
[2022-06-18] MEDS: Furosemide 20 MG TABLET PO (09:18)
[2022-06-18] MEDS: Loratadine 10 MG TABLET PO (09:18)
[2022-06-18] MEDS: Ferrous Sulfate 324 MG TABLET.DR PO (09:18)
[2022-06-18] MEDS: Metoprolol Succinate ER 25 MG TAB.ER.24H PO (09:18)
[2022-06-18] MEDS: 0.9 % Sodium Chloride Flush 3 ML SYRINGE IVFLUSH (09:19)
--- NOTE | 2022-06-18 12:52 | PM.PNCARD ---
Subjective Subjective Date of Service: 06/18/22 Principal diagnosis: COPD, NSTEMI Interval history: Hemoptysis is improving with no radha blood as per the patient being coughed up. She does not have any chest pain or shortness of breath. She denies any palpitations. No arrhythmias noted overnight. Remains highly anxious about all her issues. She is very hesitant about cardiac catheterization Review of Systems Constitutional: Reports no additional constitutional complaints Cardiovascular: Reports no additional cardiovascular complaints Respiratory: Reports hemoptysis Gastrointestinal: Reports no additional gastrointestinal complaints Reports system reviewed and no additional complaints, except as documented Physical Exam Vital Signs: Last Vital Signs Temp 97.8 F 06/18/22 12:00 Pulse 87 06/18/22 12:00 Resp 17 06/18/22 12:00 BP 109/63 06/18/22 12:00 Pulse Ox 96 06/18/22 12:00 O2 Del Method 06/18/22 12:00 O2 Flow Rate 1 06/18/22 12:00 FiO2 45 06/14/22 11:07 BMI result Body Mass Index 23.0 Const General: cooperative, comfortable, no acute distress, alert and awake Nutritional Appearance: average body habitus Orientation/consciousness: patient oriented x3 Neck Neck: Yes trachea midline, Yes supple and Yes no JVD Resp Effort & Inspection: normal respiratory effort Auscultation: clear to auscultation bilaterally Cardio Jugular venous distension: no JVD Palpation: normal PMI Rate: regular rate Rhythm: regular rhythm Heart sounds: S1 normal heart sound present, S2 normal heart sound present, no click, no gallops, no murmurs and no rubs Neuro General: patient oriented x3 and no focal motor deficits Extrem General: Yes no clubbing, cyanosis or edema Objective Labs and Meds Result diagrams: 06/18/22 06:15 06/17/22 06:20 Lab results: Laboratory Results - last 24 hr 06/18/22 06/18/22 06:15 06:15 WBC 12.7 H RBC 3.22 L Hgb 10.3 L Hct 31.7 L MCV 98.4 H MCH 32.0 MCHC 32.5 RDW 14.7 Plt Count 193 MPV 11.1 Absolute Nucleated RBC 0.020 H Nucleated RBC % (auto) 0.2 PT 19.4 H INR 1.7 H Progress Note: A&P Assessment and plan (1) Acute respiratory failure: Status: Acute Assessment and Plan: Patient admitted with acute respiratory failure to ca which appears to be more COPD exacerbation. However the suspicion for flash pulmonary edema. Echocardiogram finding suggesting distal wall motion abnormality in LAD territory. There is likelihood of progressive coronary artery disease acute plaque rupture. However patient is extremely anxious about proceeding with undergoing cardiac catheterization due to her hematologic abnormality which is reasonable. At this point time does other differential diagnoses also which is stress-induced cardiomyopathy which could potentially give similar wall motion abnormalities. Also suggest her to undergo myocardial perfusion imaging as a middle ground to assess for myocardial ischemia and if this is abnormal will require cardiac catheterization. She wants to reach out to information management specialist at [facility] if she needs invasive procedure. Repeat limited echocardiogram Monday as stress-induced cardiomyopathy 10 to resolved with time. Continue metoprolol therapy. Continue high-intensity statin therapy. Currently on warfarin therapy. If required invasive procedure will need discontinuation warfarin therapy and switch to IV heparin. l (2) SVT (supraventricular tachycardia): Status: Acute Assessment and Plan: SVT with no recurrence on higher dose of metoprolol. Continue the same. Stress mitigation strategies to be pursued. (3) Elevated troponin: Status: Acute Assessment and Plan: Elevated troponin unclear whether this is primary or secondary at this point time. Will need further evaluation and ischemic workup. Will continue to follow with you. This new plan was discussed with patient's son in detail is as well as the hospitalist team. Time Spent With Patient Time: Total time managing care of this patient today ____ minutes. Progress Note: Quality Stroke Does the patient have a stroke diagnosis?: No Procedures Date of Service Date of Service: 06/18/22
--- NOTE | 2022-06-18 13:26 | HO.PM.IMPN ---
Subjective Subjective Date of Service: 06/18/22 Interval History: hemoptysis improving- about nickel sized, dark dyspnea improving hypoxia improving- down to 1L O2 via NC ongoing chest pain, which is chronic no leg swelling Review of Systems Review of Systems: Yes all other systems are reviewed and are negative Physical Exam Vital Signs: Vital Signs: Last Vital Signs Temp 97.8 F 06/18/22 12:00 Pulse 87 06/18/22 12:00 Resp 17 06/18/22 12:00 BP 109/63 06/18/22 12:00 Pulse Ox 96 06/18/22 12:00 O2 Del Method 06/18/22 12:00 O2 Flow Rate 1 06/18/22 12:00 FiO2 45 06/14/22 11:07 BMI result Body Mass Index 23.0 Gen: NAD HEENT: sclera anicteric, moist mucus membranes Neck: supple Lungs: decreased air entry L base Heart: regular rate and rhythm, no murmurs, chest wall tenderness Abd: soft, non-tender, non-distended Ext: no edema Skin: warm/well-perfused Neuro: alert and oriented x3, no focal findings Psych: appropriate affect Objective Data Active Medications Acetaminophen (Acetaminophen 325 Mg Tablet) 650 mg PO Q6H PRN PRN Reason: Pain, Mild (Pain Scale 1-3) Al Hydroxide/Mg Hydroxide (Magnesium Hydrox/Alum Hydrox 30 Ml Oral.Susp) 30 ml PO Q4H PRN PRN Reason: dyspepsia/heartburn Albuterol/Ipratropium (Albuterol/Iprat 2.5/0.5mg 3 Ml Ampul.Neb) 3 ml INHALE RQ4H PRN PRN Reason: whezing Atorvastatin Calcium (Atorvastatin Calcium 40 Mg Tablet) 40 mg PO MOWEFR [facility] Last Admin: 06/17/22 10:14 Dose: Not Given Documented By: AUSTYN Non-Admin Reason: Patient Refused Diazepam (Diazepam 5 Mg Tablet) 5 mg PO BID PRN PRN Reason: Anxiety and Sleep Last Admin: 06/18/22 04:14 Dose: 5 mg Documented By: SERA Doxycycline Monohydrate (Doxycycline Monohydrate 100 Mg Capsule) 100 mg PO Q12H [facility] Last Admin: 06/18/22 01:02 Dose: 100 mg Documented By: SERA Ferrous Sulfate (Ferrous Sulfate 324 Mg Tablet.) 324 mg PO DAILY [facility] Last Admin: 06/18/22 09:18 Dose: 324 mg Documented By: LEON Fluticasone/Vilanterol (Fluticasone/Vilanterol 200/25 Blst.W.Dev) 1 puff INHALE RDAILY@1999 [facility] Last Admin: 06/17/22 18:58 Dose: 1 puff Documented By: MONA Furosemide (Furosemide 20 Mg Tablet) 20 mg PO DAILY [facility]; Protocol Last Admin: 06/18/22 09:18 Dose: 20 mg Documented By: LEON Guaifenesin (Guaifenesin 200 Mg/10 Ml 10 Ml Liquid) 10 ml PO Q6H [facility] Last Admin: 06/18/22 09:18 Dose: 10 ml Documented By: LEON Ceftriaxone Sodium 1 gm/ (Sodium Chloride) 50 mls @ 100 mls/hr IV Q24H [facility] Last Infusion: 06/17/22 14:07 Dose: 0 mls/hr Documented By: AUSTYN Levalbuterol HCl (Levalbuterol Hcl 1.25 Mg/0.5 Ml Vial.Neb) 1.25 mg INHALE Q2H PRN PRN Reason: shortness of breath/wheeze Last Admin: 06/16/22 16:33 Dose: 1.25 mg Documented By: ARMINDA Levalbuterol HCl (Levalbuterol Hcl 1.25 Mg/0.5 Ml Vial.Neb) 1.25 mg INHALE RQ6H WHILE AWAKE [facility] Last Admin: 06/18/22 08:10 Dose: 1.25 mg Documented By: ROLO Levothyroxine Sodium (Levothyroxine Sodium 25 Mcg Tablet) 25 mcg PO MOTUWETHFR@0600 [facility] Last Admin: 06/17/22 04:25 Dose: 25 mcg Documented By: NYLA Levothyroxine Sodium (Levothyroxine Sodium 50 Mcg Tablet) 50 mcg PO SUSA@0600 [facility] Last Admin: 06/18/22 04:14 Dose: 50 mcg Documented By: SERA Loratadine (Loratadine 10 Mg Tablet) 10 mg PO DAILY [facility] Last Admin: 06/18/22 09:18 Dose: 10 mg Documented By: LEON Meclizine HCl (Meclizine Hcl 25 Mg Tablet) 25 mg PO Q8H PRN PRN Reason: vertigo Last Admin: 06/17/22 20:13 Dose: 25 mg Documented By: SERA Methylprednisolone Sodium Succinate (Methylprednisolone Sod Succ 40 Mg/Ml Vial) 40 mg IVPUSH Q24H [facility] Last Admin: 06/18/22 12:10 Dose: Not Given Documented By: LEON Non-Admin Reason: No Access Metoprolol Succinate (Metoprolol Succinate Er 25 Mg Tab.Er.24h) 25 mg PO BID [facility]; Protocol Last Admin: 06/18/22 09:18 Dose: 25 mg Documented By: LEON Montelukast Sodium (Montelukast Sodium 10 Mg Tablet) 10 mg PO BEDTIME [facility] Last Admin: 06/17/22 20:12 Dose: 10 mg Documented By: SERA Omeprazole (Omeprazole 20 Mg Capsule.Dr) 20 mg PO DAILY PRN PRN Reason: GERD Last Admin: 06/18/22 09:18 Dose: 20 mg Documented By: LEON Ondansetron HCl (Ondansetron Hcl 4 Mg/2 Ml Vial) 4 mg IVPUSH Q8H PRN PRN Reason: Nausea and Vomiting Pharmacy Consult (Consult Rx Perform Med Rec) 1 each MISCELLANE ONCE PRN PRN Reason: Consult order Sodium Chloride (0.9 % Sodium Chloride Flush 3 Ml Syringe) 3 ml IVFLUSH QSHIFT [facility] Last Admin: 06/18/22 09:19 Dose: 3 ml Documented By: LEON Trazodone HCl (Trazodone Hcl 100 Mg Tablet) 100 mg PO BEDTIME [facility] Last Admin: 06/17/22 21:52 Dose: 100 mg Documented By: SERA Warfarin Sodium (Warfarin Sodium 1 Mg Tablet) 1 mg PO DAILY@1800 [facility] Last Admin: 06/17/22 18:03 Dose: 1 mg Documented By: AUSTYN Warfarin Sodium (Warfarin Sodium 0.5 Mg Halftab) 0.5 mg PO DAILY@1800 [facility] Last Admin: 06/17/22 18:04 Dose: Not Given Documented By: AUSTYN Non-Admin Reason: Patient Refused Labs CBC & Chem 7: 06/18/22 06:15 06/17/22 06:20 Labs: Laboratory Results - last 24 hr 06/18/22 06/18/22 06:15 06:15 MCV 98.4 H MCH 32.0 MCHC 32.5 RDW 14.7 Plt Count 193 MPV 11.1 Absolute Nucleated RBC 0.020 H Nucleated RBC % (auto) 0.2 PT 19.4 H INR 1.7 H Assessment and Plan (1) Hemoptysis: Status: Acute Plan hospital d#5 77 yo F with COPD + KANDY on biPAP and home O2 [2L as needed], pulmonary HTN, antiphospholipid antibody syndrome with hx of PE/DVT on chronic warfarin [goal INR 1.5-2 rather than 2.5-3 due to platelet dysfunction per her concrete buster operator Ronald Mills at [facility]], stage IIIA lung CA s/p LULobectomy and neoadjunvant chemoradiation, radiation pulmonary fibrosis, nonobstructive CAD s/p NSTEMI, HFpEF, hypogammoglobulinemia, hypothyroidism, and recent admission here for influenza A with COPD exacerbation, presenting here with dyspnea and found to have hypoxia with pulmonary interstitial edema and L basilar infiltrate. # NSTEMI # hx nonocculsive CAD - has WMAs on TTE. pt had cardiac cath 1 yr ago showing 40-50% occlusion in mid-LAD; however, pt is at risk of rapidly progressive CAD due to APA. ideally would undergo cardiac catheterization; however, cannot anticoagulate given hemoptysis- per Pulm, wait for hemoptysis to resolve over next few days. per Cardiology, will perform inpatient stress test and also repeat limited TTE on 06/20 to see if WMAs resolve, which would suggest stress-induced cardiomyopathy rather than occlusive CAD. - if she ends up needing cardiac catheterization, will need to d/c warfarin and wait until INR <1.[address] heparin gtt. will also need guidance from her concrete buster operator re: antiplatelet therapy for stent. I have placed a call to Dr Mills [[phone]] and am awaiting a call back # hemoptysis - per her senior php software developer Dr Kelly she gets bland DAH after flash pulmonary edema. monitor for now; if worsens, may need to d/c warfarin + get bronchoscopy but seems to be improving at this time # severe sepsis due to PNA - ceftriaxone/doxycycline d#11/11, BCx negative, PCT low, urinary antigens for pneumococcus and Legionella pending, MRSA swab negative - lactic acidosis resolved # COPD exacerbation - change IV to PO prednisone and taper to 20 mg/d today; nebulized bronchodilators; continue ICS/LABA controller inhaler # HFpEF exacerbation, resolved - IV->PO furosemide, monitor electrolytes/I+O/BNP.? continue metoprolol # [id number] hypoxic respiratory failure - acute component resolved # KANDY - biPAP at night # antiphospholipid antibody syndrome - warfarin, goal INR 1.5-2 as above due to delicate balance between bleeding and clotting; INR 1.7 today # hypothyroidism - levothyroxine # VTE ppx: warfarin In my clinical judgment, the patient requires continued inpatient hospitalization for the following reasons: IV ABX, hypoxia, NSTEMI Time Spent With Patient Time: Total time managing care of this patient today ____ minutes. Quality Stroke Does the patient have a stroke diagnosis?: No VTE Prior VTE?: No VTE Risk Level:: Medical - moderate - high VTE Device Contraindication: N/A - Device Ordered VTE Drug Contraindication: N/A - Med Ordered
[2022-06-18] MEDS: bisacodyL 10 MG SUPP.RECT PR (14:06)
--- NOTE | 2022-06-18 17:34 | PC.NURSE ---
pt was wean off the O2 and O sat was 94% RA. at 1630, pt was ambulating and O2 sat drooped to 88%. put pt back on 1L and O2 sat 95%. notified
[2022-06-18] MEDS: Artificial Tears 15 ML DROPS 2 DROP EYE-BOTH ×2 (18:01→20:09)
--- NOTE | 2022-06-18 18:17 | PC.NURSE ---
pt has INR 1.7 on 06/18 (today). Pt spoke with her Coagulation clinic and was told if INR 1.7 or greater take Coumadin 0.5 mg, or INR 1.6 or lower take Coumadin 1 mg. MD notified. Called Pharmacist, changed the order to 0.5 mg today. Per pharmacist order has to be adjusted daily depending on INR.
[2022-06-18] MEDS: Warfarin Sodium 0.5 MG HALFTAB PO (18:24)
[2022-06-18] MEDS: Fluticasone/Vilanterol 200/25 BLST.W.DEV 1 PUFF INHALE ×3 (20:01→20:20)
[2022-06-18] MEDS: Montelukast Sodium 10 MG TABLET PO (20:11)
[2022-06-18] MEDS: Magnesium Hydrox/Alum Hydrox 30 ML ORAL.SUSP PO (20:26)
[2022-06-18] MEDS: traZODone HCL 100 MG TABLET PO (22:07)
[2022-06-19] VITALS (11 sets, daily range): BP systolic 96–125; BP diastolic 50–65; PULSE 70–100; RESP 16–19; TEMP 36.1–36.8; O2SAT 95–99
[2022-06-19] MEDS: guaiFENesin 200 MG/10 ML 10 ML LIQUID PO ×4 (02:20→19:53)
[2022-06-19] MEDS: Doxycycline Monohydrate 100 MG CAPSULE PO ×2 (02:20→13:50)
[2022-06-19 02:48] LABS: Legionella Ag Urine Not Detected (Not Detected)
[2022-06-19] MEDS: diazePAM 5 MG TABLET PO (03:04)
[2022-06-19] MEDS: Levothyroxine Sodium 50 MCG TABLET PO (06:15)
[2022-06-19 07:12] LABS: Hematocrit 33.2 % (37.0-47.0); Hemoglobin 10.7 g/dl (12.0-16.0); Mean Corpuscular HGB Conc 32.2 g/dl (31.0-35.0); Mean Corpuscular Hemoglobin 32.4 pg (27.0-33.0); Mean Corpuscular Volume 100.6 fL (80.0-98.0); Mean Platelet Volume 11.1 fL (9.4-12.3); Platelet Count 226 X10*3/uL (160-400); Red Cell Distribution Width 14.6 % (11.0-16.0); White Blood Count 10.2 X10*3/uL (4.8-10.8)
[2022-06-19 07:22] LABS: INTERNATIONAL NORM RATIO 1.5 (0.9-1.1); Prothrombin Time 17.9 SEC (10.0-13.1)
[2022-06-19 07:33] LABS: Anion Gap 14 (12-20); Blood Urea Nitrogen 23 mg/dL (9-16); Calcium 9.4 mg/dL (8.4-10.2); Carbon Dioxide 29 mmol/L (22-29); Chloride 98 mmol/L (96-108); Creatinine Clr Calc Pharmacy 47.1; Estimated Glomerular Filt Rate > 60; Glucose Random 82 mg/dL (60-115); Magnesium 2.4 mg/dL (1.6-2.6); Potassium 3.9 mmol/L (3.3-5.1); Sodium 137 mmol/L (135-145)
[2022-06-19 07:40] LABS: B Type Natriuretic Peptide 665 pg/mL (<100)
[2022-06-19] MEDS: Furosemide 20 MG TABLET PO (08:38)
[2022-06-19] MEDS: Loratadine 10 MG TABLET PO (08:39)
[2022-06-19] MEDS: Metoprolol Succinate ER 25 MG TAB.ER.24H PO ×2 (08:39→19:53)
[2022-06-19] MEDS: predniSONE 20 MG TABLET PO (08:40)
[2022-06-19] MEDS: Ferrous Sulfate 324 MG TABLET.DR PO (08:40)
[2022-06-19] MEDS: Artificial Tears 15 ML DROPS 2 DROP EYE-BOTH (08:42)
--- NOTE | 2022-06-19 10:28 | P.PNCA_ITS ---
Subjective Subjective Date of Service: 06/19/22 Principal diagnosis: COPD, NSTEMI Interval history: Patient is feeling better. Hemoptysis is improving. Some dark brown expectorant. Denies any chest pain or shortness of breath. Review of Systems Review of Systems Yes all other systems are reviewed and are negative Physical Exam Vital Signs: Last Vital Signs Temp 97.6 F 06/19/22 07:56 Pulse 86 06/19/22 08:07 Resp 18 06/19/22 08:07 BP 105/56 L 06/19/22 07:56 Pulse Ox 95 06/19/22 07:56 O2 Del Method 06/19/22 07:56 O2 Flow Rate 1 06/19/22 07:56 FiO2 45 06/14/22 11:07 BMI result Body Mass Index 23.0 Const General: cooperative, comfortable, no acute distress, alert and awake Nutritional Appearance: average body habitus Orientation/consciousness: patient oriented x3 Neck Neck: Yes trachea midline, Yes supple and Yes no JVD Resp Effort & Inspection: normal respiratory effort Auscultation: clear to auscultation bilaterally Cardio Jugular venous distension: no JVD Palpation: normal PMI Rate: regular rate Rhythm: regular rhythm Heart sounds: S1 normal heart sound present, S2 normal heart sound present, no click, no gallops, no murmurs and no rubs Neuro General: patient oriented x3 and no focal motor deficits Extrem General: Yes no clubbing, cyanosis or edema Objective Labs and Meds Result diagrams: 06/19/22 06:46 06/19/22 06:46 Lab results: Laboratory Results - last 24 hr 06/15/22 06/19/22 06/19/22 12:15 06:46 06:46 WBC 10.2 RBC 3.30 L Hgb 10.7 L Hct 33.2 L MCV 100.6 H MCH 32.4 MCHC 32.2 RDW 14.6 Plt Count 226 MPV 11.1 Absolute Nucleated RBC 0.000 Nucleated RBC % (auto) 0.0 PT 17.9 H INR 1.5 H Sodium Potassium Chloride Carbon Dioxide Anion Gap BUN Creatinine Estim Creat Clear Calc Estimated GFR Random Glucose Calcium Magnesium B-Natriuretic Peptide Ur L.pneumophila Ag Not Detected 06/19/22 06/19/22 06:46 06:46 WBC RBC Hgb Hct MCV MCH MCHC RDW Plt Count MPV Absolute Nucleated RBC Nucleated RBC % (auto) PT INR Sodium 137 Potassium 3.9 Chloride 98 Carbon Dioxide 29 Anion Gap 14 BUN 23 H Creatinine 0.80 Estim Creat Clear Calc 47.1 Estimated GFR > 60 Random Glucose 82 Calcium 9.4 Magnesium 2.4 B-Natriuretic Peptide 665 H Ur L.pneumophila Ag Progress Note: A&P Assessment and plan (1) Acute respiratory failure: Status: Acute Assessment and Plan: Acute respiratory failure which appear to be bronchospastic on admission but also evidence of heart failure. Elevated troponin. Unclear with this is primary or secondary NSTEMI and or stress-induced cardiomyopathy. Needs further evaluation with ischemic workup. Will schedule for vasodilating myocardial perfusion imaging tomorrow. Resting limited echo on Monday to assess for improvement in wall motion. If stress test is abnormal require cardiac cat heterization otherwise will continue with medical therapy. Continue warfarin therapy and high-intensity statin therapy. Continue metoprolol therapy. (2) SVT (supraventricular tachycardia): Status: Acute Assessment and Plan: SVT suppressed without any obvious recurrence. Continue metoprolol therapy. Will continue to follow with you Time Spent With Patient Time: Total time managing care of this patient today ____ minutes. Progress Note: Quality Stroke Does the patient have a stroke diagnosis?: No Procedures Date of Service Date of Service: 06/19/22
--- NOTE | 2022-06-19 12:38 | HO.PM.IMPN ---
Subjective Subjective Date of Service: 06/19/22 Interval History: Offers no acute complained of chest pain or shortness of breath, no significant hemoptysis coughed up twice with pinkish tinge sputum no fresh or old blood, no fevers no chills, no other acute issues. Finger oximetry 96% on 1 L. Review of Systems Review of Systems: Yes all other systems are reviewed and are negative Physical Exam Vital Signs: Vital Signs: Last Vital Signs Temp 98.2 F 06/19/22 11:29 Pulse 83 06/19/22 11:29 Resp 16 06/19/22 11:29 BP 109/55 L 06/19/22 11:29 Pulse Ox 97 06/19/22 11:29 O2 Del Method 06/19/22 11:29 O2 Flow Rate 1 06/19/22 11:29 FiO2 45 06/14/22 11:07 BMI result Body Mass Index 23.0 Const: Other: Gen: Awake alert x3 sitting comfortably no distress HEENT: sclera anicteric, moist mucus membranes Neck: supple Lungs: Clear to auscultation bilaterally no wheeze, no rhonchi Heart: regular rate and rhythm, no murmurs,no chest wall tenderness Abd: soft, non-tender, non-distended Ext: no edema Skin: warm/well-perfused Neuro: alert and oriented x3, no focal findings Psych: appropriate affect ? Objective Data Active Medications Acetaminophen (Acetaminophen 325 Mg Tablet) 650 mg PO Q6H PRN PRN Reason: Pain, Mild (Pain Scale 1-3) Al Hydroxide/Mg Hydroxide (Magnesium Hydrox/Alum Hydrox 30 Ml Oral.Susp) 30 ml PO Q4H PRN PRN Reason: dyspepsia/heartburn Last Admin: 06/18/22 20:26 Dose: 30 ml Documented By: ANDANT Albuterol/Ipratropium (Albuterol/Iprat 2.5/0.5mg 3 Ml Ampul.Neb) 3 ml INHALE RQ4H PRN PRN Reason: whezing Artificial Tears (Artificial Tears 15 Ml Drops) 2 drop EYE-BOTH Q4H PRN PRN Reason: dry eyes Last Admin: 06/19/22 08:42 Dose: 2 drop Documented By: DOBROB Atorvastatin Calcium (Atorvastatin Calcium 40 Mg Tablet) 40 mg PO MOWEFR [facility] Last Admin: 06/17/22 10:14 Dose: Not Given Documented By: AUSTYN Non-Admin Reason: Patient Refused Bisacodyl (Bisacodyl 10 Mg Supp.Rect) 10 mg NV DAILY [facility] Last Admin: 06/19/22 08:56 Dose: Not Given Documented By: LULI Non-Admin Reason: Patient Refused Diazepam (Diazepam 5 Mg Tablet) 5 mg PO BID PRN PRN Reason: Anxiety and Sleep Last Admin: 06/19/22 03:04 Dose: 5 mg Documented By: VINCENT Doxycycline Monohydrate (Doxycycline Monohydrate 100 Mg Capsule) 100 mg PO Q12H [facility] Stop: 06/19/22 13:00 Last Admin: 06/19/22 02:20 Dose: 100 mg Documented By: VINCENT Ferrous Sulfate (Ferrous Sulfate 324 Mg Tablet.Dr) 324 mg PO DAILY [facility] Last Admin: 06/19/22 08:40 Dose: 324 mg Documented By: LULI Fluticasone/Vilanterol (Fluticasone/Vilanterol 200/25 Blst.W.Dev) 1 puff INHALE RDAILY@1999 [facility] Last Admin: 06/18/22 20:20 Dose: 1 puff Documented By: VINCENT Furosemide (Furosemide 20 Mg Tablet) 20 mg PO DAILY [facility]; Protocol Last Admin: 06/19/22 08:38 Dose: 20 mg Documented By: LULI Guaifenesin (Guaifenesin 200 Mg/10 Ml 10 Ml Liquid) 10 ml PO Q6H [facility] Last Admin: 06/19/22 08:38 Dose: 10 ml Documented By: LULI Levalbuterol HCl (Levalbuterol Hcl 1.25 Mg/0.5 Ml Vial.Neb) 1.25 mg INHALE Q2H PRN PRN Reason: shortness of breath/wheeze Last Admin: 06/16/22 16:33 Dose: 1.25 mg Documented By: YADYL Levalbuterol HCl (Levalbuterol Hcl 1.25 Mg/0.5 Ml Vial.Neb) 1.25 mg INHALE RQ6H WHILE AWAKE [facility] Last Admin: 06/19/22 08:02 Dose: 1.25 mg Documented By: ROLO Levothyroxine Sodium (Levothyroxine Sodium 25 Mcg Tablet) 25 mcg PO MOTUWETHFR@0600 [facility] Last Admin: 06/17/22 04:25 Dose: 25 mcg Documented By: NYLA Levothyroxine Sodium (Levothyroxine Sodium 50 Mcg Tablet) 50 mcg PO SUSA@0600 [facility] Last Admin: 06/19/22 06:15 Dose: 50 mcg Documented By: VINCENT Loratadine (Loratadine 10 Mg Tablet) 10 mg PO DAILY [facility] Last Admin: 06/19/22 08:39 Dose: 10 mg Documented By: LULI Meclizine HCl (Meclizine Hcl 25 Mg Tablet) 25 mg PO Q8H PRN PRN Reason: vertigo Last Admin: 06/17/22 20:13 Dose: 25 mg Documented By: KYLIE-MARIBEL Metoprolol Succinate (Metoprolol Succinate Er 25 Mg Tab.Er.24h) 25 mg PO BID [facility]; Protocol Last Admin: 06/19/22 08:39 Dose: 25 mg Documented By: LULI Montelukast Sodium (Montelukast Sodium 10 Mg Tablet) 10 mg PO BEDTIME [facility] Last Admin: 06/18/22 20:11 Dose: 10 mg Documented By: VINCENT Omeprazole (Omeprazole 20 Mg Capsule.Dr) 20 mg PO DAILY PRN PRN Reason: GERD Last Admin: 06/18/22 09:18 Dose: 20 mg Documented By: LEON Ondansetron HCl (Ondansetron Hcl 4 Mg/2 Ml Vial) 4 mg IVPUSH Q8H PRN PRN Reason: Nausea and Vomiting Pharmacy Consult (Consult Rx Perform Med Rec) 1 each MISCELLANE ONCE PRN PRN Reason: Consult order Prednisone (Prednisone 20 Mg Tablet) 20 mg PO DAILY [facility] Last Admin: 06/19/22 08:40 Dose: 20 mg Documented By: LULI Sodium Chloride (0.9 % Sodium Chloride Flush 3 Ml Syringe) 3 ml IVFLUSH QSHIFT [facility] Last Admin: 06/19/22 08:41 Dose: Not Given Documented By: LULI Non-Admin Reason: No Access Trazodone HCl (Trazodone Hcl 100 Mg Tablet) 100 mg PO BEDTIME [facility] Last Admin: 06/18/22 22:07 Dose: 100 mg Documented By: HO.ANDERM Comments: pt refused med earlier Warfarin Sodium (Warfarin Sodium 0.5 Mg Halftab) 0.5 mg PO DAILY@1800 [facility] Last Admin: 06/18/22 18:24 Dose: 0.5 mg Documented By: LEON Labs CBC & Chem 7: 06/19/22 06:46 06/19/22 06:46 Labs: Laboratory Results - last 24 hr 06/15/22 06/19/22 06/19/22 12:15 06:46 06:46 MCV 100.6 H MCH 32.4 MCHC 32.2 RDW 14.6 Plt Count 226 MPV 11.1 Absolute Nucleated RBC 0.000 Nucleated RBC % (auto) 0.0 PT 17.9 H INR 1.5 H Anion Gap Estim Creat Clear Calc Estimated GFR Random Glucose Calcium Magnesium B-Natriuretic Peptide Ur L.pneumophila Ag Not Detected 06/19/22 06/19/22 06:46 06:46 MCV MCH MCHC RDW Plt Count MPV Absolute Nucleated RBC Nucleated RBC % (auto) PT INR Anion Gap 14 Estim Creat Clear Calc 47.1 Estimated GFR > 60 Random Glucose 82 Calcium 9.4 Magnesium 2.4 B-Natriuretic Peptide 665 H Ur L.pneumophila Ag Microbiology Microbiology Results: Microbiology 06/14/22 06:19 Blood Culture - Final Blood - Venous No growth after 5 days. 06/14/22 06:02 Blood Culture - Final Blood - Venous No growth after 5 days. Assessment and Plan (1) Hemoptysis: Status: Acute Plan hospital d#5 77 yo F with COPD + KANDY on biPAP and home O2 [2L as needed], pulmonary HTN, antiphospholipid antibody syndrome with hx of PE/DVT on chronic warfarin [goal INR 1.5-2 rather than 2.5-3 due to platelet dysfunction per her gas cutting machine operator Ronald Mills at [facility]], stage IIIA lung CA s/p LULobectomy and neoadjunvant chemoradiation, radiation pulmonary fibrosis, nonobstructive CAD s/p NSTEMI, HFpEF, hypogammoglobulinemia, hypothyroidism, and recent admission here for influenza A with COPD exacerbation, presenting here with dyspnea and found to have hypoxia with pulmonary interstitial edema and L basilar infiltrate. # NSTEMI/ hx nonocculsive CAD No recurrent chest pain or shortness of breath - has WMAs on TTE. pt had cardiac cath 1 yr ago showing 40-50% occlusion in mid-LAD ideally would undergo cardiac catheterization; however, cannot anticoagulate given hemoptysis - per Pulm, wait for hemoptysis to resolve over next few days. Seen by Cardiology he scheduled for stress test tomorrow morning and repeat limited TTE on 06/20 to see if WMAs resolve, which would suggest stress-induced cardiomyopathy rather than occlusive CAD. - if she ends up needing cardiac catheterization, will need to d/c warfarin and wait until INR <1.[address] heparin gtt. will also need guidance from her gas cutting machine operator re: antiplatelet therapy for stent. Patient primary gas cutting machine operator is Dr Mills [[phone]] , call was placed to him by Dr. Shah, will contact Dr. Mills if patient is scheduled for cardiac catheterization and stent placement Continue Lipitor, and metoprolol. # hemoptysis - per her web merchandiser Dr Kelly she gets bland DAH after flash pulmonary edema, no recurrent hemoptysis this morning, if worsens, may need to d/c warfarin + get bronchoscopy but seems to be improving at this time. # severe sepsis due to PNA - s/p ceftriaxone/doxycycline d#11/11, BCx negative, PCT low, urinary antigens for pneumococcus negative and Legionella pending, MRSA swab negative - lactic acidosis resolved # COPD exacerbation - on PO prednisone 20 mg daily, continue bronchodilators and inhalers # HFpEF exacerbation, resolved - continue PO furosemide, BNP down to 665 , appears euvolemic stable electrolytes and renal function, we this continue metoprolol # [id number] hypoxic respiratory failure - acute component resolved # KANDY - using biPAP at night # antiphospholipid antibody syndrome - warfarin, goal INR 1.5-2 as above due to delicate balance between bleeding and clotting; INR 1.5 today # hypothyroidism - levothyroxine # VTE ppx: warfarin In my clinical judgment, the patient requires continued inpatient hospitalization for the following reasons: NSTEMI, scheduled for stress test from a Time Spent With Patient Time: Total time managing care of this patient today ____ minutes. Quality Stroke Does the patient have a stroke diagnosis?: No VTE Prior VTE?: No VTE Risk Level:: Medical - moderate - high VTE Device Contraindication: N/A - Device Ordered VTE Drug Contraindication: N/A - Med Ordered
[2022-06-19] MEDS: bisacodyL 10 MG SUPP.RECT PR (14:03)
[2022-06-19] MEDS: Warfarin Sodium 1 MG TABLET PO (18:30)
[2022-06-19] MEDS: Montelukast Sodium 10 MG TABLET PO (19:56)
[2022-06-19] MEDS: Fluticasone/Vilanterol 200/25 BLST.W.DEV 1 PUFF INHALE (20:12)
[2022-06-19] MEDS: traZODone HCL 100 MG TABLET PO (22:08)
[2022-06-20] VITALS (8 sets, daily range): BP systolic 115–137; BP diastolic 57–60; PULSE 78–100; RESP 16–19; TEMP 36.1–37; O2SAT 93–99
[2022-06-20] MEDS: diazePAM 2 MG TABLET PO (03:43)
[2022-06-20] MEDS: guaiFENesin 200 MG/10 ML 10 ML LIQUID PO ×3 (03:43→14:04)
[2022-06-20] MEDS: Levothyroxine Sodium 25 MCG TABLET PO (05:27)
[2022-06-20 08:06] LABS: INTERNATIONAL NORM RATIO 1.3 (0.9-1.1); Prothrombin Time 15.2 SEC (10.0-13.1)
[2022-06-20] MEDS: Metoprolol Succinate ER 25 MG TAB.ER.24H PO (09:32)
[2022-06-20] MEDS: Atorvastatin Calcium 40 MG TABLET PO (09:32)
[2022-06-20] MEDS: Ferrous Sulfate 324 MG TABLET.DR PO (09:32)
[2022-06-20] MEDS: Furosemide 20 MG TABLET PO (09:32)
[2022-06-20] MEDS: predniSONE 20 MG TABLET PO (09:32)
[2022-06-20] MEDS: Loratadine 10 MG TABLET PO (09:33)
--- NOTE | 2022-06-20 10:30 | PM.PNPUL ---
Subjective Subjective Date of Service: 06/20/22 Principal diagnosis: COPD, NSTEMI Interval history: The patient was seen on exam. Still has some minimal degree of hemoptysis. Overall reassuring. She is continues to be on her Coumadin. Cardiology did talk to the patient about undergoing transfer to [facility] for diagnostic catheterization. I do agree with that. If the patient does not undergo further testing will probably be in the same place without knowing for sure. Therefore I do agree that the diagnostic catheterization will be important to occlude obstructive CAD again. I do believe that a right heart catheterization would also be important in view of the pulmonary hypertension noted on the echocardiogram and to further assess for pulmonary veno-occlusive disease which indeed could result in recurrent flash pulmonary edema. The patient has been on prednisone throughout the stay. She does have a contrast reaction. The fact that she has been on prednisone suggest that she has already been premedicated for the contrast a at administration. The pathology that Objective Data Labs CBC & Chem 7: 06/19/22 06:46 06/19/22 06:46 Labs: Laboratory Results - last 24 hr 06/20/22 07:18 PT 15.2 H INR 1.3 H Microbiology Microbiology Results: Microbiology 06/14/22 06:19 Blood - Venous Blood Culture - Final No growth after 5 days. 06/14/22 06:02 Blood - Venous Blood Culture - Final No growth after 5 days. Review of Systems Review of Systems Yes all other systems are reviewed and are negative (PMFSH IS REVIEWED.) Constitutional: Reports body ache(s) and Reports fatigue Eyes: Reports no additional eye complaints Reports system reviewed and no additional complaints, except as documented Cardiovascular: Reports chest pain and Reports dyspnea Respiratory: Reports dyspnea Endocrine: Reports fatigue Physical Exam Vital Signs: Vital Signs: Last Vital Signs Temp 97.7 F 06/20/22 08:00 Pulse 90 06/20/22 08:00 Resp 16 06/20/22 08:00 BP 137/60 06/20/22 08:00 Pulse Ox 93 06/20/22 08:00 O2 Del Method 06/20/22 08:00 O2 Flow Rate 2 06/20/22 08:00 FiO2 45 06/14/22 11:07 BMI result Body Mass Index 23.0 Const: General: cooperative, comfortable, no acute distress, alert and awake Nutritional Appearance: average body habitus Orientation/consciousness: patient oriented x3 Neck: Neck: Yes trachea midline, Yes supple and Yes no JVD Resp: Effort & Inspection: normal respiratory effort Auscultation: breath sounds absent Cardio: Jugular venous distension: no JVD Palpation: normal PMI Rate: regular rate Rhythm: regular rhythm Heart sounds: S1 normal heart sound present, S2 normal heart sound present, no click, no gallops, no murmurs and no rubs Neuro: General: patient oriented x3 and no focal motor deficits Extrem: General: Yes no clubbing, cyanosis or edema Procedures Date of Service Date of Service: 06/20/22 Assessment and Plan Assessment and plan (1) COPD (chronic obstructive pulmonary disease): Status: Acute (2) (HFpEF) heart failure with preserved ejection fraction: Status: Acute (3) Anti-phospholipid antibody syndrome: Status: Acute (4) Chronic respiratory failure: Status: Acute (5) Pulmonary hypertension: Status: Acute (6) Antiphospholipid antibody syndrome: Status: Acute (7) Radiation fibrosis of lung: Problem details: C/B traction bronchiectasis and airway obstructions . Status: Acute (8) KANDY treated with BiPAP: Status: Acute (9) Hemoptysis: Status: Acute (10) Elevated troponin: Problem details: NSTEMI with WMA Status: Acute Plan Continue Prednisone 20mg and continue respiratory therapy Agree with [place] [facility] [place] right and left cardiac catherization Right heart cath to assess for pulmonary veno-occlusive disease If she does have a stentable coronary lesion then would recommend she have a Hematology consultation to address her platelet dysfuction and APS Diuresis as tolerated Time Spent With Patient Time: Total time managing care of this patient today ____ minutes. Progress Note: Quality Stroke Does the patient have a stroke diagnosis?: No
--- NOTE | 2022-06-20 10:47 | PM.PNCARD ---
Subjective Subjective Date of Service: 06/20/22 Principal diagnosis: COPD, NSTEMI Interval history: Some vague chest pressure symptoms. Blood-tinged sputum. Still anxious. Has lot of questions. Review of Systems Review of Systems Yes all other systems are reviewed and are negative Constitutional: Reports as per HPI Eyes: Reports as per HPI Reports as per HPI Cardiovascular: Reports as per HPI, Denies acrocyanosis, Denies cool extremities, Denies chest pain, Denies leg edema, Denies lightheadedness, Denies palpitations and Reports dyspnea Respiratory: Reports as per HPI, Reports no additional respiratory complaints, Reports chest congestion, Reports hemoptysis and Reports dyspnea Gastrointestinal: Reports as per HPI and Reports no additional gastrointestinal complaints Genitourinary: Reports as per HPI Musculoskeletal: Reports no additional musculoskeletal complaints and Reports as per HPI Skin/Breast: Reports system reviewed and no additional complaints, except as docu Reports system reviewed and no additional complaints, except as documented and Reports as per HPI Psychiatric: Reports no additional psychiatric complaints and Reports as per HPI Endocrine: Reports no additional endocrine complaints, Reports as per HPI and Denies palpitations Hematologic/Lymphatic: Reports no additional hematologic/lymphatic complaints and Reports as per HPI Allergic/Immunologic: Reports no additional allergic/immunologic complaints and Reports as per HPI Physical Exam Vital Signs: Last Vital Signs Temp 97.7 F 06/20/22 08:00 Pulse 90 06/20/22 08:00 Resp 16 06/20/22 08:00 BP 137/60 06/20/22 08:00 Pulse Ox 93 06/20/22 08:00 O2 Del Method 06/20/22 08:00 O2 Flow Rate 2 06/20/22 08:00 FiO2 45 06/14/22 11:07 BMI result Body Mass Index 23.0 Const General: comfortable and no acute distress Orientation/consciousness: patient oriented x3 HEENT Other: Unremarkable Head: Yes normal to inspection Neck Neck: Yes normal visual inspection Chest Chest palpation & inspection: normal inspection of the chest Resp Auscultation: crackles Cardio Palpation: normal PMI Heart sounds: S1 normal heart sound present, S2 normal heart sound present, no gallops, no murmurs and no rubs GI Palpation (GI): Soft to palpation Back/Spine/Pelvis Other: unremarkable Skin General skin exam: no rashes or lesions noted Neuro General: patient oriented x3 Extrem General: Yes normal to inspection Psych Mental Status: mental status grossly normal Objective Labs and Meds Result diagrams: 06/19/22 06:46 06/19/22 06:46 Lab results: Laboratory Results - last 24 hr 06/20/22 07:18 PT 15.2 H INR 1.3 H Progress Note: A&P Assessment and plan (1) NSTEMI (non-ST elevated myocardial infarction): Status: Acute Plan Discussed with patient also discussed with Dr. Kelly. Documentation also reviewed. Acute respiratory failure, bronchospasm, congestive heart failure, elevated troponins. There is a question of primary or secondary NSTEMI versus stress-induced cardiomyopathy. Echocardiogram with LVEF 55-60%. Apical lateral hypokinesis and apical septum/apex akinesis. She was initially reluctant for cardiac catheterization but after discussion today as well as with her substation supervisor, she is agreeable. Hence we will transfer to [facility] for cardiac catheterization. With regard to question of platelet dysfunction anti phospholipid syndrome, may need Hematology input as well prior to cardiac catheterization. Time Spent With Patient Time: Total time managing care of this patient today 35 minutes. Progress Note: Quality Stroke Does the patient have a stroke diagnosis?: No Procedures Date of Service Date of Service: 06/20/22
--- NOTE | 2022-06-20 13:05 | PM.DS ---
DS: Providers Provider Date of Service: 06/20/22 Date of admission: 06/14/22 14:47 Primary care physician: Caitlyn Bowie MD Consults: 06/14/22 13:53 Consult to Pulmonology Routine Consulting Provider: Henry Kelly Reason for consultation: resp failure 06/15/22 07:44 Consult to Cardiology Routine Consulting Provider: Giovanny Reynaga Reason for consultation: NSTEMI, heparinizing 06/16/22 17:06 Consult to Care Team Routine Comment: Reason for consultation: severe anxiety Consult to Psychiatry Routine Consulting Provider: Psych Covering Reason for consultation: severe anxiety DS: Diagnosis Discharge Diagnosis (1) COPD (chronic obstructive pulmonary disease): Status: Acute (2) (HFpEF) heart failure with preserved ejection fraction: Status: Acute (3) Anti-phospholipid antibody syndrome: Status: Acute (4) Chronic respiratory failure: Status: Acute (5) Pulmonary hypertension: Status: Acute (6) Antiphospholipid antibody syndrome: Status: Acute (7) Radiation fibrosis of lung: Status: Acute (8) KANDY treated with BiPAP: Status: Acute (9) Hemoptysis: Status: Acute (10) Elevated troponin: Status: Acute DS: Summary Hospital Course Hospital Course: History of presenting illness Chief Complaint: dyspnea and hypoxia 77 yo F with COPD + KANDY on biPAP and home O2 [2L as needed], pulmonary HTN, antiphospholipid antibody syndrome with hx of PE/DVT on chronic warfarin [goal INR 1.5-2 rather than 2.5-3 due to platelet dysfunction per her sap project manager at [facility]], stage IIIA lung CA s/p LULobectomy and neoadjunvant chemoradiation, radiation pulmonary fibrosis, nonobstructive CAD s/p NSTEMI, HFpEF, hypogammoglobulinemia, hypothyroidism, and recent admission here for influenza A with COPD exacerbation.? She is on prednisone 5 mg/daily chronically and recently completed a course of doxycycline.? She was recently seen by her shopping investigator, Dr Henry Kelly, on 06/08/22.? She presented to the ED today with 1 day of shortness of breath and cough with yellow sputum.? No hemoptysis.? No fever.? She was found to be markedly hypoxic with SaO2 of 73%. and was placed on biPAP . She recovered and is currently saturating 97% on 3L via nasal cannula.? WBC count was 13.3.? Initial lactate was 2.8 and is now 20.? Troponin-I was 17.7.? BNP was 614.? CXR showed interstitial pulmonary edema, R>L, as well as L basilar consolidation.? In the interim, she was given IV ceftriaxone and doxycycline, IV methylprednisolone, and an Duoneb treatment. Hospital course 77 yo F with COPD + KANDY on biPAP and home O2 [2L as needed], pulmonary HTN, antiphospholipid antibody syndrome with hx of PE/DVT on chronic warfarin [goal INR 1.5-2 rather than 2.5-3 due to platelet dysfunction per her sap project manager Ronald Mills at [facility]], stage IIIA lung CA s/p LULobectomy and neoadjunvant chemoradiation, radiation pulmonary fibrosis, nonobstructive CAD s/p NSTEMI, HFpEF, hypogammoglobulinemia, hypothyroidism, and recent admission here for influenza A with COPD exacerbation, presenting here with dyspnea and found to have hypoxia with pulmonary interstitial edema and L basilar infiltrate. # NSTEMI/ hx nonocculsive CAD, patient denies shortness of breath continue to have mild congestion, initially treated with IV heparin that was subsequently discontinued of to few hours after cardiology recommendation Since it was felt that patient has demand ischemia due to COPD exacerbation with hypoxemia and acidosis patient was treated with aspirin and Lipitor, TTE showed oa of apical lateral segment, apical septum akinetic EF 55-60%, moderate tricuspid valve regurgitation, patient is now being discharged to [facility] for diagnostic catheterization if patient needed stent placement then will need hematology consultation With history of platelet dysfunction and antiphospholipid syndrome for choice of antiplatelet agent, at baseline on Coumadin INR 1.3 today, Coumadin is on hold that can be restarted after cardiac catheterization ? Patient primary sap project manager is Dr Mills [[phone]] from [facility], Patient has allergy to iodinated contrast but has been receiving prednisone currently on 20 mg of prednisone so already has been premedicated. # hemoptysis, minimal degree of hemoptysis persist, INR 1.3, Coumadin is on hold patient was followed closely by her primary shopping investigator Dr. Kelly he recommend both right and left-sided diagnostic catheterization to assess for pulmonary veno-occlusive disease which could result in recurrent flash pulmonary edema, patient noted to have pulmonary hypertension on the echocardiogram. . # severe sepsis due to PNA patient finished course of IV ceftriaxone and doxycycline, blood cultures are negative urinary antigen for pneumococcus is negative, MRSA swab negative lactic acidosis has resolved # COPD exacerbation resolved continue by mouth prednisone 20 mg along with bronchodilators # HFpEF exacerbation, resolved continue PO furosemide, BNP down to 665 , appears euvolemic stable electrolytes and renal function, we this continue metoprolol # [id number] hypoxic respiratory failure- acute component resolved # KANDY biPAP at night # antiphospholipid antibody syndrome- warfarin, goal INR 1.5-2 due to delicate balance between bleeding and clotting; INR 1.3 today # hypothyroidism continue levothyroxine. Time Spent with Patient Time attestation: Total time managing care of this patient today ____ minutes. Discharge coordination time: Greater than 30 minutes Quality: Safe Use of Opioids Does Pt have an Active Cancer Diagnosis on the Problem List?: No Quality: Stroke Does the patient have a stroke diagnosis?: No Physical Exam Vital Signs: Vital Signs: Last Vital Signs Temp 97.8 F 06/20/22 11:39 Pulse 87 06/20/22 11:39 Resp 16 06/20/22 11:39 BP 124/60 06/20/22 11:39 Pulse Ox 93 06/20/22 11:39 O2 Del Method 06/20/22 11:39 O2 Flow Rate 1 06/20/22 11:39 FiO2 45 06/14/22 11:07 BMI result Body Mass Index 23.0 Const: Other: Gen:? Awake alert x3 sitting comfortably no distress HEENT: sclera anicteric, moist mucus membranes Neck: supple,no jvd Lungs:? Clear to auscultation bilaterally no wheeze, no rhonchi Heart: regular rate and rhythm, no murmurs,no chest wall tenderness Abd: soft, non-tender, non-distended Ext: no edema Skin: warm/well-perfused Neuro: alert and oriented x3, no focal findings Psych: appropriate affect DS: Data Data Completed and Pending Completed studies during hospitalization [Text1]: Procedures Assistance with Respiratory Ventilation, Less than 24 Consecutive Hours, Continuous Positive Airway Pressure (05/25/22) Labs on day of discharge: Laboratory Results - last 24 hr 06/20/22 07:18 PT 15.2 H INR 1.3 H Discharge Plan Discharge Anticipated Discharge Date/Time: 06/20/22 11:56 Patient Disposition: Xfer Acute Care Hospital Discharge Diagnosis: Severe Sepsis due to pneumonia Non ST-elevation MO Anti phospholipid antibody syndrome Platelet dysfunction Hemoptysis Referrals: Caitlyn Bowie MD [Primary Care Provider] - 1 Week Discharge Medications: New levalbuterol HCl [Xopenex Concentrate] 1.25 mg/0.5 mL Solution For Nebulization 1.25 mg inhalation RQ6H WHILE AWAKE Qty: 30 0RF prednisone 20 mg Tablet 20 mg PO DAILY Qty: 5 0RF atorvastatin [Lipitor] 40 mg tablet 40 mg PO BEDTIME Qty: 30 0RF Continued montelukast 10 mg tablet 10 mg PO DAILY Qty: 90 3RF trazodone 50 mg tablet 100 mg PO BEDTIME Qty: 180 3RF Advair HFA 230-21 mcg/actuation HFA aerosol inhaler 2 puff inhalation BID Qty: 36 1RF levothyroxine [Synthroid] 25 mcg tablet 50 mcg PO SUSA@0600 ferrous gluconate 324 mg (38 mg iron) tablet 324 mg PO QAM levothyroxine [Synthroid] 25 mcg tablet 25 mcg PO MOTUWETHFR@0600 levocetirizine 5 mg tablet 5 mg PO DAILY guaifenesin [Tussin] 100 mg/5 mL Liquid 200 mg PO Q4H PRN (Reason: Cough) diazepam 5 mg tablet 5 mg PO BID PRN (Reason: Anxiety and Sleep) furosemide 20 mg tablet 20 mg PO DAILY metoprolol succinate 25 mg tablet extended release 24 hr 25 mg PO BID Discontinued rosuvastatin 10 mg tablet 10 mg PO Q OTHER DAY Qty: 45 3RF prednisone 5 mg tablet 5 mg PO DAILY warfarin [Jantoven] 1 mg tablet 1 - 4 tab PO DAILY Discharge Orders: Discharge Order (Routine); Ordered 06/20/22 Ordered By: Katiana Toure Diet: Low fat, low cholesterol Activity on Discharge: As tolerated Stand Alone Forms: Patient Portal Discharge page Care Plan Goals: Being discharged to [facility] for diagnostic right and left-sided cardiac catheterization If patient need stent placement or further surgical intervention than will require hematology consultation by Dr. Hogan with history of antiphospholipid syndrome as well as dysfunction of platelets Patient has been on prednisone for COPD that will premedicate her for allergy to contrast dye Please resume Coumadin with goal of INR 1.5-2 Health Concerns: Hemoptysis resolving Sepsis resolved Continue all medications as prescribed Plan of Treatment: Outpatient follow-up with primary care physician, supervisor transferring and boxing as well as sap project manager Assessment: As above
--- NOTE | 2022-06-20 13:19 | MHC.CM.PN ---
Per ROUNDS discussion, Patient will be dc/transferred to BS today.
== END 2022-06-20 20:00 | disposition short-term general hospital (02) | DRG 871 ==
LOC: HO.ED 07:34 → HO.EDOVER 15:01 → HO.IMC 06-15 09:08
PROVIDERS: Emergency Medicine; Internal Medicine; Student in an Organized Health Care Education/Training Program; Admitting Provider Family Medicine; Emergency Provider Emergency Medicine; PCP Internal Medicine; Visit Provider Hospitalist
DX: A41.9 Sepsis, unspecified organism (principal); I21.A1 Myocardial infarction type 2; I50.33 Acute on chronic diastolic (congestive) heart failure; J18.9 Pneumonia, unspecified organism; J96.21 Acute and chronic respiratory failure with hypoxia; J44.1 Chronic obstructive pulmonary disease with (acute) exacerbation; D68.61 Antiphospholipid syndrome; J44.0 Chronic obstructive pulmonary disease with (acute) lower respiratory infection; J70.1 Chronic and other pulmonary manifestations due to radiation; R04.2 Hemoptysis; I47.1 Supraventricular tachycardia; I51.81 Takotsubo syndrome; R65.20 Severe sepsis without septic shock; Z20.822 Contact with and (suspected) exposure to COVID-19; Z91.041 Radiographic dye allergy status; I25.10 Atherosclerotic heart disease of native coronary artery without angina pectoris; F43.10 Post-traumatic stress disorder, unspecified; F41.9 Anxiety disorder, unspecified; I07.1 Rheumatic tricuspid insufficiency; G47.33 Obstructive sleep apnea (adult) (pediatric); E03.9 Hypothyroidism, unspecified; I27.20 Pulmonary hypertension, unspecified; Z99.81 Dependence on supplemental oxygen; I25.2 Old myocardial infarction; Z86.711 Personal history of pulmonary embolism; Z86.718 Personal history of other venous thrombosis and embolism; Z92.3 Personal history of irradiation; Z90.2 Acquired absence of lung [part of]; Z85.118 Personal history of other malignant neoplasm of bronchus and lung; Z92.21 Personal history of antineoplastic chemotherapy; Z91.013 Allergy to seafood; Z88.0 Allergy status to penicillin; Z88.1 Allergy status to other antibiotic agents; Z88.2 Allergy status to sulfonamides; Z88.8 Allergy status to other drugs, medicaments and biological substances; Z79.01 Long term (current) use of anticoagulants; Z79.890 Hormone replacement therapy; Z79.899 Other long term (current) drug therapy
CPT/HCPCS: 0241U; 36415; 71045; 80048; 80053; 82803; 83605; 83735; 83880; 84145; 84484; 85025; 85027; 85610; 85730; 87040; 87449; 87640; 87641; 87899; 93005; 93306; 94640; 94660; 97162; 97530; 99285; J0696; J1940; J2920; J2930; J3475; Q9957

== ENCOUNTER → 2022-06-30 13:00 | Outpatient (BNVA) | payer MEDICARE, SELFPAY | PROVIDERS: PCP Internal Medicine; Visit Provider Hospitalist | DX: J96.10 Chronic respiratory failure, unspecified whether with hypoxia or hypercapnia (principal); I27.20 Pulmonary hypertension, unspecified; J70.1 Chronic and other pulmonary manifestations due to radiation; D68.61 Antiphospholipid syndrome; R91.8 Other nonspecific abnormal finding of lung field; R76.8 Other specified abnormal immunological findings in serum; G47.33 Obstructive sleep apnea (adult) (pediatric); I50.30 Unspecified diastolic (congestive) heart failure; G47.00 Insomnia, unspecified | CPT/HCPCS: 99212 ==

== ENCOUNTER → 2022-07-05 14:40 | Outpatient (BNVA) | payer MEDICARE, SELFPAY | PROVIDERS: PCP Internal Medicine; Visit Provider Nurse Practitioner Family | DX: I21.4 Non-ST elevation (NSTEMI) myocardial infarction (principal); I47.1 Supraventricular tachycardia; I27.20 Pulmonary hypertension, unspecified; Z79.899 Other long term (current) drug therapy; Z98.890 Other specified postprocedural states | CPT/HCPCS: 99212 ==

== ENCOUNTER → 2022-07-14 08:56 | Outpatient (BNVA) | payer MEDICARE, SELFPAY | PROVIDERS: PCP Internal Medicine; Visit Provider Hospitalist | DX: I27.20 Pulmonary hypertension, unspecified (principal); R91.8 Other nonspecific abnormal finding of lung field; J96.10 Chronic respiratory failure, unspecified whether with hypoxia or hypercapnia; G47.33 Obstructive sleep apnea (adult) (pediatric); J70.1 Chronic and other pulmonary manifestations due to radiation; D68.61 Antiphospholipid syndrome; G47.00 Insomnia, unspecified; I50.30 Unspecified diastolic (congestive) heart failure; R76.8 Other specified abnormal immunological findings in serum; Z79.52 Long term (current) use of systemic steroids; Z79.899 Other long term (current) drug therapy; Z99.81 Dependence on supplemental oxygen | CPT/HCPCS: 94618; 99212 ==

== ENCOUNTER 2022-07-20 10:29 | Outpatient (REF) | payer MEDICARE, SELFPAY ==
--- NOTE | ~2022-07-20 | XR_ITS ---
EXAMINATION: XR CHEST CLINICAL INFORMATION: R09.02 - Hypoxemia COMPARISON: Chest radiographs 06/14/2022, 05/25/2022, CT chest noncontrast 05/25/2022. TECHNIQUE: 2 views of the chest were obtained. FINDINGS: There is increasing opacity left lower zone with associated effusion. There is also new blunting right lateral costophrenic angle consistent with small effusion. There is no pneumothorax. The vascularity is normal. The heart is normal in size. XR/XR chest 2V IMPRESSION: 1. Increasing opacity left lower zone with associated effusion. 2. New small right effusion.
== END 2022-07-20 10:30 | disposition home or self-care (01) ==
LOC: HO.XRAY 10:29
PROVIDERS: PCP Internal Medicine; Visit Provider Hospitalist
DX: I27.20 Pulmonary hypertension, unspecified (principal); R91.8 Other nonspecific abnormal finding of lung field; J96.10 Chronic respiratory failure, unspecified whether with hypoxia or hypercapnia; J70.1 Chronic and other pulmonary manifestations due to radiation; D68.61 Antiphospholipid syndrome; I50.30 Unspecified diastolic (congestive) heart failure; R76.8 Other specified abnormal immunological findings in serum
CPT/HCPCS: 71046; 94618; 99212

== ENCOUNTER → 2022-07-21 14:43 | Outpatient (REF) | payer MEDICARE, SELFPAY ==
--- NOTE | 2022-07-21 14:47 | CA_ITS ---
Transthoracic Echocardiogram Patient (Last, First, Middle): Jovana Malik J Gender: Female Date of : 1945 Age: 77 Procedure Date: 07/21/2022 Procedure Type: Transthoracic Echocardiogram Location: OP Height: 160.02 cm Weight: 59.42 kg BSA: 1.62 m2 Heart Rate: 110 bpm BP: 134 / 80 mmHg Restaurant Front Manager: SB Referring MD: Luis Eduardo Cadet MD Symptoms: I51.81 - Takotsubo syndrome Study Quality: Adequate w contrast ECG Rhythm: Tachycardia Conclusions: - Normal left ventricular cavity size. There is mildly increased left ventricular wall thickness. The left ventricular systolic function is hyperdynamic. The visually estimated ejection fraction is >70%. - Elevated filling pressures. - Normal right ventricular cavity size and systolic function. - There is moderate to severe mitral valve regurgitation. - There is moderate tricuspid valve regurgitation. The right ventricular systolic pressure is 75 mmHg. Findings Procedure Information Contrast agent, definity, is being given per protocol without apparent complications. Left Ventricle Normal left ventricular cavity size. There is mildly increased left ventricular wall thickness. The left ventricular systolic function is hyperdynamic. The visually estimated ejection fraction is >70%. There is no evidence of regional wall motion abnormalities. Abnormal diastolic function is noted. Elevated filling pressures. Right Ventricle Normal right ventricular cavity size and systolic function. Atria The left atrium is normal in size. The right atrium is mildly dilated. Aortic Valve There is a normal trileaflet aortic valve. There is mild calcification of the aortic valve. There is no aortic valve stenosis. There is trace (trivial) aortic valve regurgitation. Mitral Valve There is mild anterior and posterior mitral leaflet thickening. There is mild mitral annular calcification. There is moderate to severe mitral valve regurgitation. There is no mitral valve stenosis. Pulmonic Valve Normal pulmonic valve structure and function. Tricuspid Valve Normal tricuspid valve structure. There is moderate tricuspid valve regurgitation. The right ventricular systolic pressure is 75 mmHg. Normal right atrial pressure. Severe pulmonary hypertension is present. Great Vessels All visible segments of the aorta are normal in size. The visualized portions of the pulmonary artery and branches are normal. Venous The inferior vena cava is normal in size and collapses greater than 50% with inspiration. Pericardium/Pleural There is no evidence of pericardial effusion. Prior Study Comparison Changes noted compared to prior study dated: 06/14/2022. Mod to severe MR, mod TR, severe pulm HTN, elevated filling pressures. Measurements 2D Linear Measurements IVSd: 1.10 0.6-0.9/0.6-1.0 cm LVIDd: 4.40 3.9-5.3/4.2-5.9 cm LVIDd Index: 2.72 2.4-3.2/2.2-3.1 cm/m2 LVIDs: 2.53 2.0-3.6 cm LVPWd: 0.54 0.7-1.1 cm LA Diam: 3.90 2.7-3.8/3.0-4.0 cm LAIDs Index: 2.41 1.5-2.3 cm/m2 LV Mass: 140.34 67-162/88-224 g LV Mass Index: 86.63 43-95/49-115 g/m2 LVOT Diam: 2.00 3.0+(-)1.3 cm 2D Systolic Function EF 4C: 72.70 >55% EF 2C: 61.80 >55% EF BiP: 69.10 >55% Mitral Valve MV Pk E: 1.16 MV PK A: 0.82 MV Decel Time: 150.00 E/A: 1.40 E'Lateral: 4.24 E'Medial: 4.90 E/E' Med: 23.70 E/E' Lat: 27.40 PHT: 44.00 MVA PHT: 5.00 Decel [place]: 7.74 Aortic Valve AoV Pk Memo: 1.01 AoV Pk Grad: 4.00 HARLEY: 2.68 AI Pk Memo: 3.54 AI [place]: 4.00 LVOT LVOT Pk Memo: 0.85 LVOT Mn Memo: 0.57 LVOT VTI: 0.17 LVOT Pk Grad: 3.00 LVOT Mn Grad: 2.00 LVOT Diam: 2.00 LVOT Area: 3.14 Diastolic Function MV Pk E: 1.16 MV Pk A: 0.82 E/A: 1.40 E'Medial: 4.90 E/E' Med: 23.70 E' Laterial: 4.24 E/E' Lat: 27.40 Right Ventricle TAPSE (mm): 17.80 TVS' Memo: 14.00 Tricuspid Valve TR Pk Memo: 4.24 TR Pk Grad: 72.00 RA Press: 3.00 RVSP: 75.00 Great Vessels Aorta Sinus of Valsalva: 3.20 2.0-3.5 cm Ao Asc: 3.20 2.1-3.4 cm Pulmonary Valve PV Pk Memo: 0.69 Peak PV Grad: 2.00 Updated in Other Vendor System with Status of Final Luis Eduardo Cadet MD electronically signed on 07/21/2022 8:49:52 PM with status of Final
== END ==
LOC: HO.CARD 14:43
PROVIDERS: Visit Provider Internal Medicine Cardiovascular Disease
DX: I51.81 Takotsubo syndrome (principal)
CPT/HCPCS: 93306; Q9957

== ENCOUNTER 2022-07-28 11:41 | Outpatient (REF) | payer MEDICARE, SELFPAY ==
[2022-07-28 13:21] LABS: Hematocrit 35.6 % (37.0-47.0); Hemoglobin 11.3 g/dl (12.0-16.0); Mean Corpuscular HGB Conc 31.7 g/dl (31.0-35.0); Mean Corpuscular Hemoglobin 31.5 pg (27.0-33.0); Mean Corpuscular Volume 99.2 fL (80.0-98.0); Mean Platelet Volume 10.8 fL (9.4-12.3); Platelet Count 257 X10*3/uL (160-400); Red Blood Count 3.59 X10*6/uL (4.20-5.50); White Blood Count 12.8 X10*3/uL (4.8-10.8)
[2022-07-28 13:51] LABS: Anion Gap 15 (12-20); Blood Urea Nitrogen 17 mg/dL (9-16); Calcium 9.9 mg/dL (8.4-10.2); Carbon Dioxide 31 mmol/L (22-29); Chloride 97 mmol/L (96-108); Estimated Glomerular Filt Rate > 60; Glucose Random 138 mg/dL (60-115); Potassium 3.5 mmol/L (3.3-5.1); Sodium 139 mmol/L (135-145)
[2022-08-01 11:58] LABS: NT-proBNP 1110 pg/mL
== END 2022-07-28 11:42 | disposition home or self-care (01) ==
LOC: HO.LAB 11:41
PROVIDERS: PCP Internal Medicine; Visit Provider Internal Medicine Cardiovascular Disease
DX: I50.30 Unspecified diastolic (congestive) heart failure (principal); I25.10 Atherosclerotic heart disease of native coronary artery without angina pectoris; J44.1 Chronic obstructive pulmonary disease with (acute) exacerbation; I34.0 Nonrheumatic mitral (valve) insufficiency; R07.9 Chest pain, unspecified
CPT/HCPCS: 36415; 80048; 83880; 85027; 93005; 99212

== ENCOUNTER → 2022-09-05 09:50 | Outpatient (REF) | payer MEDICARE, SELFPAY ==
--- NOTE | 2022-09-05 09:56 | CA_ITS ---
Transthoracic Echocardiogram Patient (Last, First, Middle): Jovana Malik J Gender: Female Date of : 1945 Age: 77 Procedure Date: 09/05/2022 Procedure Type: Transthoracic Echocardiogram Location: OP Height: 160.02 cm Weight: 56.25 kg BSA: 1.58 m2 Heart Rate: bpm BP: 130 / 76 mmHg Gas Producer: CONRAD Referring MD: Navdeep Camarillo MD Answerer: Giovanny Reynaga MD Symptoms: S/P MITRAL CLIP MITRAL REGURGITATION Study Quality: Fair ECG Rhythm: Sinus Conclusions: - 1. Normal LV systolic function with impaired relaxation filling pattern 2. Presence of MitraClip with mild mitral regurgitation and mitral stenosis with mean gradient of 7 mmHg 3. Moderately elevated right ventricular systolic pressure 4. Mild biatrial enlargement Findings Left Ventricle Normal left ventricular size, thickness, and systolic function. The visually estimated ejection fraction is between 60-65%. Spectral Doppler is indicative of an impaired relaxation filling pattern. Right Ventricle Mildly increased right ventricular cavity size. There is normal right ventricular systolic function. Atria The left atrium is mildly dilated. There is evidence of a small secundum atrial septal defect with left to right shunting. probably iatrogenic, from instrumentation for MitraClip. The right atrium is mildly dilated. Aortic Valve There is mild calcification of the aortic valve. There is no aortic valve stenosis. There is mild aortic valve regurgitation. Mitral Valve There is moderate anterior and posterior mitral leaflet thickening. The anterior mitral leaflet has restricted mobility and the posterior mitral leaflet has restricted mobility. There is mild mitral valve regurgitation. linear refractile density seen, consistent with MitraClip. Mean gradient across the mitral valve 7 mmHg consistent with mitral stenosis which also most likely iatrogenic from MitraClip Pulmonic Valve The pulmonic valve was not well visualized. Tricuspid Valve There is mild to moderate tricuspid valve regurgitation. Normal right atrial pressure. Moderate pulmonary hypertension is present. Great Vessels All visible segments of the aorta are normal in size. The pulmonary artery was not well visualized. Venous The inferior vena cava is normal in size and collapses greater than 50% with inspiration. Pericardium/Pleural There is no evidence of pericardial effusion. Prior Study Comparison Significant changes compared to prior study dated: 07/21/2022. RV systolic pressure have improved. Mitral regurgitation severity is mild with functioning MitraClip with associated mitral stenosis Measurements 2D Linear Measurements IVSd: 1.37 0.6-0.9/0.6-1.0 cm LVIDd: 3.73 3.9-5.3/4.2-5.9 cm LVIDd Index: 2.36 2.4-3.2/2.2-3.1 cm/m2 LVIDs: 2.32 2.0-3.6 cm LVPWd: 0.92 0.7-1.1 cm LV Mass: 173.15 67-162/88-224 g LV Mass Index: 109.59 43-95/49-115 g/m2 LVOT Diam: 2.00 3.0+(-)1.3 cm 2D Systolic Function EF 4C: 62.30 >55% EF 2C: 63.70 >55% EF BiP: 62.60 >55% Mitral Valve MV VTI: 0.54 MV Pk Memo: 1.94 MV Mn Memo: 1.34 MV Pk Grad: 15.00 MV Mn Grad: 8.00 MV Pk E: 1.56 MV PK A: 1.65 MV Decel Time: 312.00 E/A: 0.90 E'Lateral: 3.70 E'Medial: 4.35 E/E' Med: 35.90 E/E' Lat: 42.20 PHT: 96.00 MVA PHT: 2.29 MVA Continuity: 1.17 Decel [place]: 4.76 Aortic Valve AoV Pk Memo: 1.22 AoV Mn Memo: 0.90 AoV VTI: 0.29 AoV Pk Grad: 6.00 Aov Mn Grad: 4.00 HARLEY Cont.VTI: 2.21 AI Pk Memo: 3.75 AI [place]: 2.73 LVOT LVOT Pk [place]: 0.87 LVOT Mn Memo: 0.64 LVOT VTI: 0.20 LVOT Pk Grad: 3.00 LVOT Mn Grad: 2.00 LVOT Diam: 2.00 LVOT Area: 3.14 Diastolic Function MV Pk E: 1.56 MV Pk A: 1.65 E/A: 0.90 E'Medial: 4.35 E/E' Med: 35.90 E' Laterial: 3.70 E/E' Lat: 42.20 Right Ventricle TAPSE (mm): 25.60 TVS' [place]: 14.90 Tricuspid Valve TR Pk Memo: 3.48 TR Pk Grad: 48.00 RA Press: 3.00 RVSP: 51.00 Great Vessels Aorta Sinus of Valsalva: 3.38 2.0-3.[address] [place]: 2.55 1.7-3.4 cm Ao Asc: 2.70 2.1-3.4 cm Updated in Other Vendor System with Status of Final Giovanny Reynaga MD electronically signed on 09/05/2022 3:59:46 PM with status of Final
== END ==
LOC: HO.CARD 09:50
PROVIDERS: PCP Internal Medicine; Visit Provider Internal Medicine Cardiovascular Disease
DX: I34.89 Other nonrheumatic mitral valve disorders (principal)
CPT/HCPCS: 93306

== ENCOUNTER 2022-09-08 10:53 | Outpatient (REF) | payer MEDICARE, SELFPAY ==
--- NOTE | ~2022-09-08 | XR_ITS ---
EXAMINATION: XR ABDOMEN COMPLETE CLINICAL INDICATION: Unspecified abdominal pain COMPARISON: None TECHNIQUE: 2 views of the abdomen. FINDINGS: The bowel gas pattern is nonspecific. There is no free air or air-fluid levels. There is no organomegaly. There is mild levoscoliosis lumbar spine with degenerative disc changes and facet joint arthropathy L4-L5 disc levels. XR/XR abdomen min 2V IMPRESSION: Mild levoscoliosis of lumbar spine with degenerative disc changes and facet joint arthropathy at L4-L5 disc level.
== END 2022-09-08 10:54 | disposition home or self-care (01) ==
LOC: HO.XRAY 10:53
PROVIDERS: PCP Internal Medicine; Visit Provider Hospitalist
DX: J44.9 Chronic obstructive pulmonary disease, unspecified (principal); R91.8 Other nonspecific abnormal finding of lung field; J70.1 Chronic and other pulmonary manifestations due to radiation; I50.30 Unspecified diastolic (congestive) heart failure; I27.20 Pulmonary hypertension, unspecified; I34.0 Nonrheumatic mitral (valve) insufficiency; J96.10 Chronic respiratory failure, unspecified whether with hypoxia or hypercapnia; G47.33 Obstructive sleep apnea (adult) (pediatric); D68.61 Antiphospholipid syndrome; G47.00 Insomnia, unspecified; R76.8 Other specified abnormal immunological findings in serum; J45.909 Unspecified asthma, uncomplicated; R10.9 Unspecified abdominal pain; Z86.711 Personal history of pulmonary embolism; Z79.01 Long term (current) use of anticoagulants
CPT/HCPCS: 74019; 99212

== ENCOUNTER → 2022-09-14 12:19 | Outpatient (BNVA) | payer MEDICARE, SELFPAY | PROVIDERS: PCP Internal Medicine; Visit Provider Internal Medicine Cardiovascular Disease | DX: I34.0 Nonrheumatic mitral (valve) insufficiency (principal); I50.30 Unspecified diastolic (congestive) heart failure | CPT/HCPCS: 99212 ==

== ENCOUNTER → 2022-09-27 09:53 | Outpatient (REF) | payer MEDICARE, SELFPAY ==
--- NOTE | ~2022-09-27 | XR_ITS ---
EXAMINATION: XR CHEST CLINICAL INFORMATION: Chest pain COMPARISON: July 20, 2022 and June 14, 2022 TECHNIQUE: 2 views of the chest were obtained. FINDINGS: Postsurgical change seen within the left lung with shift of mediastinal structures to the left. The previously noted left pleural effusion is smaller than on prior study. No pneumothorax identified. Heart normal size. No evidence of pulmonary edema. Clip/closure device is seen within the mediastinum. XR/XR chest 2V IMPRESSION: Improved left pleural effusion with postsurgical change. No definite acute parenchymal disease identified.
--- NOTE | 2022-09-27 10:02 | ECG_ITS ---
Test Reason : COPD Blood Pressure : / mmHG Vent. Rate : 099 BPM Atrial Rate : 099 BPM P-R Int : 162 ms QRS Dur : 114 ms QT Int : 368 ms P-R-T Axes : 071 -62 088 degrees QTc Int : 472 ms Normal sinus rhythm Possible Left atrial enlargement Left anterior fascicular block Left ventricular hypertrophy with repolarization abnormality ( R in aVL , [place] product ) Abnormal ECG When compared with ECG of 15-JUN-2022 07:59, Left anterior fascicular block is now Present Criteria for Anterior infarct are no longer Present Criteria for Inferior infarct are no longer Present T wave amplitude has increased in Lateral leads Referred By: Henry Kelly Electronically Signed By:INGRID TILLMAN MD
== END ==
LOC: HO.CARD 09:53
PROVIDERS: PCP Internal Medicine; Visit Provider Hospitalist
DX: R07.9 Chest pain, unspecified (principal); J44.9 Chronic obstructive pulmonary disease, unspecified
CPT/HCPCS: 71046; 93005

== ENCOUNTER → 2022-09-30 09:39 | Outpatient (BNVA) | payer MEDICARE, SELFPAY | PROVIDERS: PCP Internal Medicine; Visit Provider Hospitalist | DX: R91.8 Other nonspecific abnormal finding of lung field (principal); I27.20 Pulmonary hypertension, unspecified; J96.10 Chronic respiratory failure, unspecified whether with hypoxia or hypercapnia; J70.1 Chronic and other pulmonary manifestations due to radiation; D68.61 Antiphospholipid syndrome; G47.00 Insomnia, unspecified; G47.33 Obstructive sleep apnea (adult) (pediatric); I34.0 Nonrheumatic mitral (valve) insufficiency; I50.30 Unspecified diastolic (congestive) heart failure; R76.8 Other specified abnormal immunological findings in serum | CPT/HCPCS: Q3014 ==

== ENCOUNTER → 2022-10-06 12:52 | Outpatient (BNVA) | payer MEDICARE, SELFPAY | PROVIDERS: PCP Internal Medicine; Referring Provider Internal Medicine; Visit Provider Nurse Practitioner Family | DX: I47.1 Supraventricular tachycardia (principal); I50.30 Unspecified diastolic (congestive) heart failure; I25.10 Atherosclerotic heart disease of native coronary artery without angina pectoris; I34.0 Nonrheumatic mitral (valve) insufficiency; R00.2 Palpitations | CPT/HCPCS: 94618; 99212 ==

== ENCOUNTER 2022-10-20 10:51 | Outpatient (REF) | payer MEDICARE, SELFPAY ==
--- NOTE | 2022-10-20 11:56 | ECG_ITS ---
Test Reason : j44.9 copd Blood Pressure : / mmHG Vent. Rate : 085 BPM Atrial Rate : 085 BPM P-R Int : 160 ms QRS Dur : 108 ms QT Int : 392 ms P-R-T Axes : 076 -59 076 degrees QTc Int : 466 ms Normal sinus rhythm Possible Left atrial enlargement Left anterior fascicular block Left ventricular hypertrophy with repolarization abnormality ( R in aVL , [place] product ) Abnormal ECG When compared with ECG of 27-SEP-2022 10:07, No significant change was found Referred By: Henry Kelly Electronically Signed By:INGRID TILLMAN MD
[2022-10-20 12:22] LABS: Venous Blood Gas Refer to POC result
[2022-10-20 12:34] LABS: VBG pH 7.42 (7.32-7.43)
[2022-10-20 12:35] LABS: VBG Base Excess 10.6 mmol/L; VBG HCO3 37 mmol/L (22-26); VBG pCO2 56 mmHg
[2022-10-20 12:36] LABS: VBG pO2 40 mmHg
[2022-10-20 12:49] LABS: Anion Gap 12 (12-20); Blood Urea Nitrogen 20 mg/dL (9-16); Calcium 10.1 mg/dL (8.4-10.2); Carbon Dioxide 33 mmol/L (22-29); Chloride 99 mmol/L (96-108); Estimated Glomerular Filt Rate > 60; Glucose Random 99 mg/dL (60-115); Potassium 4.5 mmol/L (3.3-5.1); Sodium 139 mmol/L (135-145)
== END 2022-10-20 10:52 | disposition home or self-care (01) ==
LOC: HO.LAB 10:51
PROVIDERS: PCP Internal Medicine; Visit Provider Hospitalist
DX: J44.9 Chronic obstructive pulmonary disease, unspecified (principal); I34.0 Nonrheumatic mitral (valve) insufficiency; I27.20 Pulmonary hypertension, unspecified; I50.30 Unspecified diastolic (congestive) heart failure; R91.8 Other nonspecific abnormal finding of lung field; J96.10 Chronic respiratory failure, unspecified whether with hypoxia or hypercapnia; J70.1 Chronic and other pulmonary manifestations due to radiation; R00.2 Palpitations; D68.61 Antiphospholipid syndrome; G47.33 Obstructive sleep apnea (adult) (pediatric); G47.00 Insomnia, unspecified; R76.8 Other specified abnormal immunological findings in serum
CPT/HCPCS: 36415; 80048; 82803; 93005; 99212

== ENCOUNTER 2022-11-09 13:51 | Emergency (ER) | payer MEDICARE, SELFPAY ==
--- NOTE | ~2022-11-09 | NM_ITS ---
EXAMINATION: PULMONARY PERFUSION STUDY CLINICAL INFORMATION: Pleuritic chest pain, history of DVT/PE. Pulmonary hypertension, chronic anticoagulation, lung cancer, hypoxia, chest pain. Left lower lobe lung resection 2008. COMPARISON: The previous lung scan dated 08/18/2021 is available for comparison. Radiographs of the chest dated 09/27/2022 are the most recent available for comparison. Scheduled chest radiographs on the same date as this lung scan have not yet become available. TECHNIQUE: Following the intravenous administration of 1.0 mCi Tc-99m MAA an 8-view perfusion study was performed using a dual detector gamma scintillation camera. No ventilation images were obtained. A reduced dose of Technetium 99 MAA was used because of the patient's history of pulmonary hypertension. FINDINGS: Perfusion images: No segmental perfusion defects are present. There is diffusely decreased activity and volume in the left lung. The activity in the left lung is homogeneous, however. There is very minimal heterogeneity present in the right lung, but no focal or anatomic appearing perfusion defects are present on either side. Compared to the previous study dated 08/18/2021, there has not been a significant change. The chest radiographs dated 09/27/2022 show postsurgical changes in the left lung with shift of mediastinal structures to the left and a small left pleural effusion. NM/NM pul perfusion IMPRESSION: Very low probability of pulmonary embolism.
--- NOTE | ~2022-11-09 | XR_ITS ---
EXAMINATION: XR ANKLE AND FOOT, RIGHT CLINICAL INFORMATION: Ecchymosis. COMPARISON: None available. TECHNIQUE: AP, lateral, and mortise views of the right ankle and foot. FINDINGS: Mild soft tissue swelling is seen distally in the calf. The ankle joint and mortise are intact. The tarsal bones are normally aligned. There is a mild hallux valgus deformity. Mild distal interphalangeal degenerative joint changes are seen. There is generalized osteopenia. No acute fracture. Moderate to severe atherosclerosis is noted. XR/XR foot RT min 3V IMPRESSION: 1. Mild soft tissue swelling distally in the calf without acute underlying osseous abnormality. 2. Mild hallux valgus deformity and mild distal interphalangeal osteoarthritis. 3. Moderate to severe atherosclerosis.
--- NOTE | ~2022-11-09 | US_ITS ---
EXAMINATION: US VENOUS ULTRASOUND WITH DOPPLER LOWER EXTREMITY, RIGHT CLINICAL INFORMATION: Right lower extremity pain COMPARISON: 07/25/2019 TECHNIQUE: Ultrasound of the deep veins is performed from the hip to the calf with compression sonography and color and pulse Doppler assessment. Spectral analysis with color-flow imaging is performed. FINDINGS: There is normal venous compression and respiratory variation and augmented flow. The visualized common femoral vein, superficial femoral vein, profunda femoral vein, popliteal vein, and the trifurcation region shows no evidence of deep venous thrombosis. There is no significant popliteal fossa cyst. If the patient's symptoms persist, followup ultrasound in 5 days 7 days might be of value to exclude proximal propagation from a non-visualized calf vein. US/US venous duplex LE RT IMPRESSION: No DVT demonstrated in the right lower extremity.
--- NOTE | ~2022-11-09 | XR_ITS ---
EXAMINATION: XR ANKLE AND FOOT, RIGHT CLINICAL INFORMATION: Ecchymosis. COMPARISON: None available. TECHNIQUE: AP, lateral, and mortise views of the right ankle and foot. FINDINGS: Mild soft tissue swelling is seen distally in the calf. The ankle joint and mortise are intact. The tarsal bones are normally aligned. There is a mild hallux valgus deformity. Mild distal interphalangeal degenerative joint changes are seen. There is generalized osteopenia. No acute fracture. Moderate to severe atherosclerosis is noted. XR/XR ankle RT min 3V IMPRESSION: 1. Mild soft tissue swelling distally in the calf without acute underlying osseous abnormality. 2. Mild hallux valgus deformity and mild distal interphalangeal osteoarthritis. 3. Moderate to severe atherosclerosis.
--- NOTE | ~2022-11-09 | XR_ITS ---
EXAMINATION: XR CHEST CLINICAL INFORMATION: Left chest wall and left lower rib pain COMPARISON: 09/27/2022 TECHNIQUE: 2 views of the chest were obtained. FINDINGS: Left lung base consolidation and small left pleural effusion. Unchanged cardiomediastinal silhouette. No pneumothorax. XR/XR chest 2V IMPRESSION: Left lung base consolidation and small left pleural effusion.
--- NOTE | 2022-11-09 14:02 | ED.BACK ---
HPI - Back Pain/Injury General Chief Complaint: Back Pain/Injury <EMELIA Lovett - Last Filed: 11/09/22 18:36> Stated Complaint: Back Pain <EMELIA Lovett - Last Filed: 11/09/22 18:36> Time Seen by Provider: 11/09/22 14:02 <EMELIA Lovett - Last Filed: 11/09/22 18:36> Source: patient, EMS, RN notes reviewed and old records reviewed <EMELIA Lovett Last Filed: 11/09/22 18:36> Mode of arrival: EMS <EMELIA Lovett Last Filed: 11/09/22 18:36> History of Present Illness HPI Narrative: 77 yo F with PMHx COPD, KANDY on biPAP and home O2 [2L as needed], pulmonary HTN, antiphospholipid antibody syndrome with hx of PE/DVT on chronic warfarin [goal INR 1.5-2 rather than 2.5-3 due to platelet dysfunction per 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 Reports pain worse with deep breathing and movement. Also reports chest pressure during walking test at [place] yesterday. Admits to remote history of right foot/ankle injury at grocery store last week which caused increasing swelling/bruising to RLE. Reports checked her INR today was and was 1.7 on home meter. Denies fever, chills, cough, abdominal pain, SOB, nausea/vomiting. Reports compliance with Coumadin <EMELIA Lovett - Last Filed: 11/09/22 18:36> Onset (ago): day(s) <EMELIA Lovett - Last Filed: 11/09/22 18:36> Related Data Home Medications: Home Medications Medication Instructions Recorded Confirmed levothyroxine 25 mcg tablet 50 mcg PO SUSA@0600 05/25/22 09/30/22 (Synthroid) levothyroxine 25 mcg tablet 25 mcg PO MOTUWETHFR@0600 06/14/22 09/30/22 (Synthroid) CPAP (CPAP Machine/Device) 06/30/22 09/30/22 Oxygen Home Use 06/30/22 09/30/22 nebulizers 06/30/22 09/30/22 warfarin 1 mg tablet (Jantoven) mg PO 06/30/22 09/30/22 epinephrine 0.3 mg/0.3 mL IM 07/14/22 09/30/22 injection, auto-injector rosuvastatin 10 mg tablet 20 mg PO .COMPLEX 07/28/22 09/30/22 diazepam 5 mg tablet 2.5 mg PO QID Anxiety and Sleep 09/14/22 09/30/22 guaifenesin 100 mg/5 mL oral 200 mg PO Q4H PRN Cough 10/06/22 liquid (Tussin) prednisone 5 mg tablet 10 mg PO DAILY 10/06/22 umeclidinium 62.5 mcg/actuation 1 inh inhalation DAILY 10/20/22 blister powder for inhalation (Incruse Ellipta) Previous Rx's Medication Instructions Recorded levalbuterol HCl 1.25 mg/0.5 mL 1.25 mg (0.5 mL) inhalation RQ6H 06/20/22 solution for nebulization (Xopenex WHILE AWAKE #30 ea Concentrate) trazodone 50 mg tablet 100 mg PO BEDTIME #180 tabs 06/24/22 montelukast 10 mg tablet 10 mg PO DAILY #90 tabs 06/27/22 lidocaine 5 % topical patch 1 patch topical DAILY 30 days #30 07/20/22 (Lidoderm) ea Advair HFA 230 mcg-21 2 puff inhalation BID 30 days #12 09/08/22 mcg/actuation aerosol inhaler grams (fluticasone propion-salmeterol) meclizine 25 mg tablet 25 mg PO TID PRN dizziness 14 days 09/12/22 #42 tabs furosemide 20 mg tablet (Lasix) 20 mg PO Q OTHER DAY #90 tabs 09/14/22 albuterol sulfate 2.5 mg/3 mL 2.5 mg (3 mL) inhalation Q6H PRN 09/21/22 (0.083 %) solution for nebulization shortness of breath or wheezing 30 days #180 mL metoprolol succinate 25 mg 37.5 mg PO BID 90 days #270 tabs 10/10/22 tablet,extended release 24 hr cefpodoxime 200 mg tablet 200 mg PO BID 7 days #14 tabs 11/09/22 doxycycline hyclate 100 mg tablet 100 mg PO BID 7 days #14 tabs 11/09/22 <EMELIA Lovett - Last Filed: 11/09/22 18:36> Allergies/Adverse Reactions: Allergies Allergy/AdvReac Type Severity Reaction Status Date / Time avocado [AVOCADO] Allergy Mild ITCHY Verified 10/20/22 11:00 THROAT, RASH azithromycin [AZITHROMYCIN] Allergy Mild ITCHY Verified 10/20/22 11:00 THROAT, RASH barium iodide [BARIUM IODIDE] Allergy Mild ITCHY Verified 10/20/22 11:00 THROAT, RASH barium sulfate Allergy Mild Itch Verified 10/20/22 11:00 bee pollen [BEE STINGS] Allergy Mild ITCHY Verified 10/20/22 11:00 THROAT, RASH ciprofloxacin [From CIPRO] Allergy Mild ITCHY Verified 10/20/22 11:00 THROAT, RASH clarithromycin [From BIAXIN] Allergy Mild ITCHY Verified 10/20/22 11:00 THROAT, RASH diatrizoate meglumine Allergy Mild ITCHY Verified 10/20/22 11:00 [From GASTROGRAFIN] THROAT, RASH diatrizoate sodium Allergy Mild ITCHY Verified 10/20/22 11:00 [From GASTROGRAFIN] THROAT, RASH diclofenac [From VOLTAREN] Allergy Mild ITCHY Verified 10/20/22 11:00 THROAT, RASH erythromycin base Allergy Mild ITCHY Verified 10/20/22 11:00 [ERYTHROMYCIN BASE] THROAT, RASH gentamicin [GENTAMICIN] Allergy Mild ITCHY Verified 10/20/22 11:00 THROAT, RASH Iodinated Contrast Media Allergy Mild ITCHY Verified 10/20/22 11:00 [IVP DYE] THROAT, RASH levofloxacin [From LEVAQUIN] Allergy Mild ITCHY Verified 10/20/22 11:00 THROAT, RASH metronidazole [From FLAGYL] Allergy Mild ITCHY Verified 10/20/22 11:00 THROAT, RASH moxifloxacin [From AVELOX] Allergy Mild ITCHY Verified 10/20/22 11:00 THROAT, RASH Penicillins [PENICILLINS] Allergy Mild ITCHY Verified 10/20/22 11:00 THROAT, RASH shrimp [SHRIMP] Allergy Mild ITCHY Verified 10/20/22 11:00 THROAT, RASH Sulfa (Sulfonamide Allergy Mild ITCHY Verified 10/20/22 11:00 Antibiotics) THROAT, [SULFA (SULFONAMIDE RASH ANTIBIOTICS)] vancomycin [VANCOMYCIN] Allergy Mild ITCHY Verified 10/20/22 11:00 THROAT, RASH <EMELIA Lovett - Last Filed: 11/09/22 18:36> Review of Systems Review of Systems: Constitutional: No Fever, No Chills, No Fatigue, No Malaise ENT/Mouth: No Ear Pain, No Nasal Congestion, No sore throat, No Rhinorrhea, No Swallowing Difficulty Eyes: No Eye Pain, No Swelling, No Redness, No Vision Changes Cardiovascular: +Chest Wall Pain, No SOB, No Dyspnea on Exertion, No Orthopnea, + Edema, No Palpitations Respiratory: No Cough, No Sputum, No Dyspnea Gastrointestinal: No Nausea, No Vomiting, No Diarrhea, No Constipation, No Abdominal pain Genitourinary: No irregular bleeding, No Dysuria, No Hematuria, No Urinary Incontinence/retention, No Flank Pain Musculoskeletal: + joint pain, No Myalgias, + Joint Swelling Skin: + Skin Lesions, No rash Neuro: No Weakness, No Numbness, No Paresthesias, No Loss of Consciousness, No Dizziness, No Headache <EMELIA Lovett - Last Filed: 11/09/22 18:36> Yes all other systems are reviewed and are negative <EMELIA Lovett - Last Filed: 11/09/22 18:36> Constitutional: Constitutional: Reports as per HPI <EMELIA Lovett - Last Filed: 11/09/22 18:36> FORMERLY [facility], [facility] Past Medical History Attestation statement: The following information was validated with the patient. <EMELIA Lovett - Last Filed: 11/09/22 18:36> Source: old records reviewed <EMELIA Lovett - Last Filed: 11/09/22 18:36> Medical History: Medical History (HFpEF) heart failure with preserved ejection fraction Allergic bronchitis CLARA positive Anti-phospholipid antibody syndrome Anxiety Arterial insufficiency of lower extremity Chronic anticoagulation Chronic respiratory failure Complex regional pain syndrome i of right lower limb COPD (chronic obstructive pulmonary disease) Diverticulitis Dyspnea Factor 5 Leiden mutation, heterozygous GERD (gastroesophageal reflux disease) Hemoptysis History of COVID-19 History of non-ST elevation myocardial infarction (NSTEMI) Hyperlipidemia Hypertension Hypogammaglobulinemia Hypothyroidism Hypoxia Insomnia Lung cancer KANDY treated with BiPAP Pericardial effusion Pleural effusion Pneumonitis Post herpetic neuralgia PTSD (post-traumatic stress disorder) Pulmonary emboli Pulmonary hypertension Pulmonary nodules Radiation fibrosis of lung Subarachnoid bleed Tracheobronchitis <EMELIA Lovett - Last Filed: 11/09/22 18:36> Surgical History: Surgical History History of cardiac cath History of colonoscopy History of hysterectomy History of lung surgery History of tonsillectomy S/P mitral valve clip implantation <EMELIA Lovett - Last Filed: 11/09/22 18:36> Family History Family History: Family History Sister No problems noted. Mother Cardiovascular disease Daughter Tachycardia Other KANDY (obstructive sleep apnea) <EMELIA Lovett - Last Filed: 11/09/22 18:36> Social History Social History: Social History Household Members: None Housing: House Do you presently have visiting nurse or other home services: Yes Alcohol intake: former Patient Tobacco Use Status: Never used Tobacco Smoked in Last 30 Days: No Second Hand Smoke Exposure: No Use of substances other than those prescribed or required for medical reasons: No Advance Directives: Yes Advance Directives on File: Yes Advance Directives Date on File: 06/15/22 service: No Current occupational status: retired <EMELIA Lovett - Last Filed: 11/09/22 18:36> Physical Exam Vital Signs: Vital Signs: Last Vital Signs Temp 98.9 F 11/09/22 17:59 Pulse 88 11/09/22 18:21 Resp 16 11/09/22 18:21 BP 165/89 H 11/09/22 18:21 Pulse Ox 99 11/09/22 18:21 O2 Del Method Room Air 11/09/22 18:21 BMI result Body Mass Index 23.9 <EMELIA Lovett - Last Filed: 11/09/22 18:36> Vital Signs: Last Vital Signs Temp 98.9 F 11/09/22 17:59 Pulse 88 11/09/22 18:21 Resp 16 11/09/22 18:21 BP 165/89 H 11/09/22 18:21 Pulse Ox 99 11/09/22 18:21 O2 Del Method Room Air 11/09/22 18:21 BMI result Body Mass Index 23.9 <Mick Villegas - Last Filed: 11/09/22 21:04> Const: General: cooperative, no acute distress, alert and awake <EMELIA Lovett - Last Filed: 11/09/22 18:36> Orientation/consciousness: patient oriented x3 <EMELIA Lovett - Last Filed: 11/09/22 18:36> Limitations: no limitations <EMELIA Lovett - Last Filed: 11/09/22 18:36> HEENT: Head: Yes normal to inspection and Yes atraumatic <EMELIA Lovett - Last Filed: 11/09/22 18:36> Ears: hearing grossly normal bilaterally <EMELIA Lovett - Last Filed: 11/09/22 18:36> General nose exam: Normal external nose present <EMELIA Lovett - Last Filed: 11/09/22 18:36> Face and sinus: Yes normal facial exam <EMELIA Lovett - Last Filed: 11/09/22 18:36> Eyes: General: appearance normal, both eyes and all related structures <EMELIA Lovett - Last Filed: 11/09/22 18:36> EOM: EOMs intact bilaterally <EMELIA Lovett - Last Filed: 11/09/22 18:36> Neck: Neck: Yes normal visual inspection and Yes no meningeal signs <EMELIA Lovett - Last Filed: 11/09/22 18:36> Chest: Other: + small erythema/excoriation to left upper back. + tenderness to palpation to left mid thoracic region and left anterior lateral lower ribs. No flail chest. No rash, no warmth <EMELIA Lovett - Last Filed: 11/09/22 18:36> Chest palpation & inspection: no crepitus and tenderness <Joann Pouljonat PA - Last Filed: 11/09/22 18:36> Resp: Effort & Inspection: normal respiratory effort and no respiratory distress <Joann Pouljonat, PA - Last Filed: 11/09/22 18:36> Auscultation: clear to auscultation bilaterally and no wheezes <Joann Pouljonat, PA - Last Filed: 11/09/22 18:36> Cardio: Rate: regular rate <Joann Pouljonat, PA - Last Filed: 11/09/22 18:36> Heart sounds: S1 normal heart sound present and S2 normal heart sound present <Joann Pouljonat, PA - Last Filed: 11/09/22 18:36> Peripheral pulses: Peripheral pulses 2+ throughout <Joann Pouljonat, PA - Last Filed: 11/09/22 18:36> GI: Inspection: Yes normal to inspection <Joann [place], PA - Last Filed: 11/09/22 18:36> Palpation (GI): Soft to palpation, nontender, no guarding and not rigid <Joann Pouljonat, PA - Last Filed: 11/09/22 18:36> : General: Yes no CVA tenderness <Joann Pouljonat, PA - Last Filed: 11/09/22 18:36> Back/Spine/Pelvis: Other: No midline cervical/thoracic/lumbar spinous tenderness/step-off or deformity <Joann Pouljonat, PA - Last Filed: 11/09/22 18:36> Back: no CVA tenderness <Joann Pouljonat, PA - Last Filed: 11/09/22 18:36> Skin: Rashes: no rashes <Joann [place], PA - Last Filed: 11/09/22 18:36> Wounds: no wounds <Joann Pouljonat, PA - Last Filed: 11/09/22 18:36> Neuro: General: patient oriented x3, tone normal, no meningeal signs and no focal motor deficits <Joann Pouljonat, PA - Last Filed: 11/09/22 18:36> Extrem: Other: + RLE with healing ecchymosis and edema. + diffusely tender to palpation including right calf, ankle and foot. Small hematoma noted to right lateral malleolus. No warmth LLE with diffuse tenderness (chronic per patient), no appreciable pitting edema/swelling Neurovascularly intact <EMELIA Lovett - Last Filed: 11/09/22 18:36> Course Course Course Narrative: > patient reports throat closing/rash to IV contrast. Has been premedicated in the past with success at [facility], however reports additional side effect of hemoptysis. Will cancel CTA and proceed with V/Q scan -1624--mild leukocytosis of 12.4. INR 1.8, therapeutic for patient. BUN chronically elevated -troponin 14.5 > will obtain 3 hour repeat. BNP chronically elevated -UA negative XR foot RT min 3V/XR ankle RT min 3V IMPRESSION: 1.? Mild soft tissue swelling distally in the calf without acute underlying osseous abnormality. 2.? Mild hallux valgus deformity and mild distal interphalangeal osteoarthritis. 3.? Moderate to severe atherosclerosis. 172--NM pul perfusion IMPRESSION: Very low probability of pulmonary embolism. 1756--US venous duplex LE RT IMPRESSION: No DVT demonstrated in the right lower extremity. >> patient's home dose of Coumadin ordered XR chest 2V IMPRESSION: Left lung base consolidation and small left pleural effusion. > likely cause of patient's pain. Will treat with dose of IV Rocephin/p.o. Doxy in the ED and discharged with prescription Cefpodoxime and Doxycycline due to patient's allergies -1899--ED care transfer to EMELIA Rodriguez pending repeat troponin at 18:20. Dispo per results <EMELIA Lovett - Last Filed: 11/09/22 18:36> Reevaluation(s) Reevaluation #1: Patient received in sign-out at change of shift pending repeat troponin. There is no significant change in the troponin. Patient is stable for discharge. Patient was uncomfortable or discharge. I had a lengthy conversation with her regarding her exam, results and treatment. I explained that she is hemodynamically stable, her oxygen saturation has never been compromised. She is in no respiratory distress. She is concerned about the pain she is experiencing from her pneumonia. She does not want any strong pain medications, encouraged her to take Tylenol and lidocaine patches that were prescribed. She will follow-up with her PCP. <Mick Villegas - Last Filed: 11/09/22 21:04> Time: 20:14 <Mick Villegas - Last Filed: 11/09/22 21:04> Medications Administered Discontinued Medications Generic Name Dose Route Start Last Admin Trade Name Kobi PRN Reason Stop Dose Admin Acetaminophen 650 mg 11/09/22 18:25 11/09/22 18:37 Acetaminophen 325 Mg Tablet PO 11/09/22 18:26 Not Given ONCE ONE Diazepam 2 mg 11/09/22 15:10 11/09/22 15:16 Diazepam 2 Mg Tablet PO 11/09/22 15:11 2 mg ONCE ONE Administration Doxycycline Monohydrate 100 mg 11/09/22 18:35 11/09/22 19:33 Doxycycline Monohydrate 100 Mg Capsule PO 11/09/22 18:36 100 mg ONCE ONE Administration Ceftriaxone Sodium 1 gm/ 50 mls @ 100 mls/hr 11/09/22 18:35 11/09/22 20:19 Sodium Chloride IV 11/09/22 19:04 Infused ONCE ONE Infusion Lidocaine 1 patch 11/09/22 18:25 11/09/22 18:37 Lidocaine 4 % Patch Adh..Patch TRANSDERMA 11/09/22 18:26 1 patch ONCE ONE Administration Protocol Warfarin Sodium 2.5 mg 11/09/22 18:00 11/09/22 18:37 Warfarin Sodium 2.5 Mg Tablet PO 11/09/22 18:01 2.5 mg ONCE@1800 ONE Administration <EMELIA Lovett - Last Filed: 11/09/22 18:36> Medications Administered Discontinued Medications Generic Name Dose Route Start Last Admin Trade Name Kobi PRN Reason Stop Dose Admin Acetaminophen 650 mg 11/09/22 18:25 11/09/22 18:37 Acetaminophen 325 Mg Tablet PO 11/09/22 18:26 Not Given ONCE ONE Diazepam 2 mg 11/09/22 15:10 11/09/22 15:16 Diazepam 2 Mg Tablet PO 11/09/22 15:11 2 mg ONCE ONE Administration Doxycycline Monohydrate 100 mg 11/09/22 18:35 11/09/22 19:33 Doxycycline Monohydrate 100 Mg Capsule PO 11/09/22 18:36 100 mg ONCE ONE Administration Ceftriaxone Sodium 1 gm/ 50 mls @ 100 mls/hr 11/09/22 18:35 11/09/22 20:19 Sodium Chloride IV 11/09/22 19:04 Infused ONCE ONE Infusion Lidocaine 1 patch 11/09/22 18:25 11/09/22 18:37 Lidocaine 4 % Patch Adh..Patch TRANSDERMA 11/09/22 18:26 1 patch ONCE ONE Administration Protocol Warfarin Sodium 2.5 mg 11/09/22 18:00 11/09/22 18:37 Warfarin Sodium 2.5 Mg Tablet PO 11/09/22 18:01 2.5 mg ONCE@1800 ONE Administration <Mick Villegas - Last Filed: 11/09/22 21:04> Medical Decision Making Medical Decision Making MDM Narrative: 77 yo F with PMHx COPD, KANDY on biPAP and home O2 [2L as needed], pulmonary HTN, antiphospholipid antibody syndrome with hx of PE/DVT on chronic warfarin [goal INR 1.5-2 rather than 2.5-3 due to platelet dysfunction per 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 Reports pain worse with deep breathing and movement. On exam vital signs stable, NAD, nontoxic appearing, physical exam as above with notable left thoracic and anterior lower rib tenderness, lungs CTA, abdomen soft/nontender. RLE with healing ecchymosis, edema, and calf tenderness. Concern for DVT/PE vs underlying pneumonia vs ?PTX vs atypical ACS. No evidence of cellulitis. Lower suspicion for viral syndrome or fracture or intra-abdominal pathology at this time. No evidence of zoster Plan: EKG, labs, venous duplex ultrasound, ankle/foot x-ray, CTA to rule out PE, re-evaluate Please refer to course for remaining clinical decision making, interpretation of labs/imaging results, and discussions with consultants and/or family members. <EMELIA Lovett - Last Filed: 11/09/22 18:36> Differential Diagnosis Differential Diagnoses: The differential diagnosis associated with the presentation includes <EMELIA Lovett - Last Filed: 11/09/22 18:36> As above <EMELIA Lovett - Last Filed: 11/09/22 18:36> Admission/Observation Consideration of admission/observation: Escalation of care including admission/observation considered <EMELIA Lovett - Last Filed: 11/09/22 18:36> Lab Data MDM Lab Attestation statement: I reviewed the patient's lab results. <EMELIA Lovett - Last Filed: 11/09/22 18:36> Result Diagrams: 11/09/22 15:21 11/09/22 15:20 <EMELIA Lovett - Last Filed: 11/09/22 18:36> Labs: Lab Results 11/09/22 11/09/22 11/09/22 Range/Units 14:58 15:20 15:20 WBC (4.8-10.8) X10*3/uL RBC (4.20-5.50) X10*6/uL Hgb (12.0-16.0) g/dl Hct (37.0-47.0) % MCV (80.0-98.0) fL MCH (27.0-33.0) pg MCHC (31.0-35.0) g/dl RDW (11.0-16.0) % Plt Count (160-400) X10*3/uL MPV (9.4-12.3) fL Immature Gran % (Auto) (0.0-0.4) % Neut % (Auto) (45-73) % Lymph % (Auto) (20-40) % Teller % (Auto) (2-11) % Eos % (Auto) (0-4) % Baso % (Auto) (0-2) % Lymph # (Auto) (1.2-4.9) X10*3/uL Teller # (Auto) (0.1-1.2) X10*3/uL Eos # (Auto) (0.0-0.4) X10*3/uL Baso # (Auto) (0.0-0.2) X10*3/uL Abs Immat Gran (auto) (0.00-0.03) X10*3/uL Absolute Neuts (auto) (2.0-8.3) x10*3/uL Absolute Nucleated RBC (0.0-0.012) X10*3/uL Nucleated RBC % (auto) (0.0-0.2) /100WBC PT (10.0-13.1) SEC INR (0.9-1.1) Sodium 138 (135-145) mmol/L Potassium 4.0 (3.3-5.1) mmol/L Chloride 100 (96-108) mmol/L Carbon Dioxide 33 H (22-29) mmol/L Anion Gap 9 L (12-20) BUN 24 H (9-16) mg/dL Creatinine 0.98 (0.5-1.4) mg/dL Estim Creat Clear Calc 38.5 Estimated GFR 55 Random Glucose 82 (60-115) mg/dL Lactic Acid (0.5-2.0) mmol/L Calcium 10.5 H (8.4-10.2) mg/dL Magnesium 2.4 (1.6-2.6) mg/dL Total Bilirubin 0.7 (0.0-1.0) mg/dL Direct Bilirubin 0.2 (0.0-0.5) mg/dL AST 26 (5-31) U/L ALT 21 (0-31) U/L Alkaline Phosphatase 81 (39-117) U/L Troponin I High Sens 14.5 D (<3.5-17.0) ng/L B-Natriuretic Peptide (<100) pg/mL Total Protein 7.1 (6.5-8.0) g/dL Albumin 4.1 (3.5-5.0) g/dL Lipase 20 (8-78) U/L Urine Color Yellow Urine Appearance Clear Urine pH 6.0 (5.0-9.0) Ur Specific [place] 1.015 (1.005-1.025) Urine Protein Negative (Neg-Trace) mg/dL Urine Glucose (UA) Negative (Negative) mg/dL Urine Ketones Negative (Negative) mg/dL Urine Blood Negative (Negative) Urine Nitrite Negative (Negative) Ur Leukocyte Esterase Negative (Negative) 11/09/22 11/09/22 11/09/22 Range/Units 15:20 15:21 15:21 WBC 12.4 H (4.8-10.8) X10*3/uL RBC 4.23 (4.20-5.50) X10*6/uL Hgb 13.3 (12.0-16.0) g/dl Hct 40.5 (37.0-47.0) % MCV 95.7 (80.0-98.0) fL MCH 31.4 (27.0-33.0) pg MCHC 32.8 (31.0-35.0) g/dl RDW 14.6 (11.0-16.0) % Plt Count 234 (160-400) X10*3/uL MPV 10.7 (9.4-12.3) fL Immature Gran % (Auto) 0.8 H (0.0-0.4) % Neut % (Auto) 79.8 H (45-73) % Lymph % (Auto) 8.9 L (20-40) % Teller % (Auto) 9.7 (2-11) % Eos % (Auto) 0.2 (0-4) % Baso % (Auto) 0.6 (0-2) % Lymph # (Auto) 1.1 L (1.2-4.9) X10*3/uL Teller # (Auto) 1.2 (0.1-1.2) X10*3/uL Eos # (Auto) 0.0 (0.0-0.4) X10*3/uL Baso # (Auto) 0.1 (0.0-0.2) X10*3/uL Abs Immat Gran (auto) 0.10 H (0.00-0.03) X10*3/uL Absolute Neuts (auto) 9.9 H (2.0-8.3) x10*3/uL Absolute Nucleated RBC 0.000 (0.0-0.012) X10*3/uL Nucleated RBC % (auto) 0.0 (0.0-0.2) /100WBC PT 21.4 H (10.0-13.1) SEC INR 1.8 H (0.9-1.1) Sodium (135-145) mmol/L Potassium (3.3-5.1) mmol/L Chloride (96-108) mmol/L Carbon Dioxide (22-29) mmol/L Anion Gap (12-20) BUN (9-16) mg/dL Creatinine (0.5-1.4) mg/dL Estim Creat Clear Calc Estimated GFR Random Glucose (60-115) mg/dL Lactic Acid (0.5-2.0) mmol/L Calcium (8.4-10.2) mg/dL Magnesium (1.6-2.6) mg/dL Total Bilirubin (0.0-1.0) mg/dL Direct Bilirubin (0.0-0.5) mg/dL AST (5-31) U/L ALT (0-31) U/L Alkaline Phosphatase (39-117) U/L Troponin I High Sens (<3.5-17.0) ng/L B-Natriuretic Peptide 525 H (<100) pg/mL Total Protein (6.5-8.0) g/dL Albumin (3.5-5.0) g/dL Lipase (8-78) U/L Urine Color Urine Appearance Urine pH (5.0-9.0) Ur Specific [place] (1.005-1.025) Urine Protein (Neg-Trace) mg/dL Urine Glucose (UA) (Negative) mg/dL Urine Ketones (Negative) mg/dL Urine Blood (Negative) Urine Nitrite (Negative) Ur Leukocyte Esterase (Negative) 11/09/22 11/09/22 Range/Units 18:57 19:09 WBC (4.8-10.8) X10*3/uL RBC (4.20-5.50) X10*6/uL Hgb (12.0-16.0) g/dl Hct (37.0-47.0) % MCV (80.0-98.0) fL MCH (27.0-33.0) pg MCHC (31.0-35.0) g/dl RDW (11.0-16.0) % Plt Count (160-400) X10*3/uL MPV (9.4-12.3) fL Immature Gran % (Auto) (0.0-0.4) % Neut % (Auto) (45-73) % Lymph % (Auto) (20-40) % Teller % (Auto) (2-11) % Eos % (Auto) (0-4) % Baso % (Auto) (0-2) % Lymph # (Auto) (1.2-4.9) X10*3/uL Teller # (Auto) (0.1-1.2) X10*3/uL Eos # (Auto) (0.0-0.4) X10*3/uL Baso # (Auto) (0.0-0.2) X10*3/uL Abs Immat Gran (auto) (0.00-0.03) X10*3/uL Absolute Neuts (auto) (2.0-8.3) x10*3/uL Absolute Nucleated RBC (0.0-0.012) X10*3/uL Nucleated RBC % (auto) (0.0-0.2) /100WBC PT (10.0-13.1) SEC INR (0.9-1.1) Sodium (135-145) mmol/L Potassium (3.3-5.1) mmol/L Chloride (96-108) mmol/L Carbon Dioxide (22-29) mmol/L Anion Gap (12-20) BUN (9-16) mg/dL Creatinine (0.5-1.4) mg/dL Estim Creat Clear Calc Estimated GFR Random Glucose (60-115) mg/dL Lactic Acid 1.1 (0.5-2.0) mmol/L Calcium (8.4-10.2) mg/dL Magnesium (1.6-2.6) mg/dL Total Bilirubin (0.0-1.0) mg/dL Direct Bilirubin (0.0-0.5) mg/dL AST (5-31) U/L ALT (0-31) U/L Alkaline Phosphatase (39-117) U/L Troponin I High Sens 18.5 H (<3.5-17.0) ng/L B-Natriuretic Peptide (<100) pg/mL Total Protein (6.5-8.0) g/dL Albumin (3.5-5.0) g/dL Lipase (8-78) U/L Urine Color Urine Appearance Urine pH (5.0-9.0) Ur Specific [place] (1.005-1.025) Urine Protein (Neg-Trace) mg/dL Urine Glucose (UA) (Negative) mg/dL Urine Ketones (Negative) mg/dL Urine Blood (Negative) Urine Nitrite (Negative) Ur Leukocyte Esterase (Negative) <EMELIA Lovett - Last Filed: 11/09/22 18:36> Lab Results 11/09/22 11/09/22 11/09/22 Range/Units 14:58 15:20 15:20 WBC (4.8-10.8) X10*3/uL RBC (4.20-5.50) X10*6/uL Hgb (12.0-16.0) g/dl Hct (37.0-47.0) % MCV (80.0-98.0) fL MCH (27.0-33.0) pg MCHC (31.0-35.0) g/dl RDW (11.0-16.0) % Plt Count (160-400) X10*3/uL MPV (9.4-12.3) fL Immature Gran % (Auto) (0.0-0.4) % Neut % (Auto) (45-73) % Lymph % (Auto) (20-40) % Teller % (Auto) (2-11) % Eos % (Auto) (0-4) % Baso % (Auto) (0-2) % Lymph # (Auto) (1.2-4.9) X10*3/uL Teller # (Auto) (0.1-1.2) X10*3/uL Eos # (Auto) (0.0-0.4) X10*3/uL Baso # (Auto) (0.0-0.2) X10*3/uL Abs Immat Gran (auto) (0.00-0.03) X10*3/uL Absolute Neuts (auto) (2.0-8.3) x10*3/uL Absolute Nucleated RBC (0.0-0.012) X10*3/uL Nucleated RBC % (auto) (0.0-0.2) /100WBC PT (10.0-13.1) SEC INR (0.9-1.1) Sodium 138 (135-145) mmol/L Potassium 4.0 (3.3-5.1) mmol/L Chloride 100 (96-108) mmol/L Carbon Dioxide 33 H (22-29) mmol/L Anion Gap 9 L (12-20) BUN 24 H (9-16) mg/dL Creatinine 0.98 (0.5-1.4) mg/dL Estim Creat Clear Calc 38.5 Estimated GFR 55 Random Glucose 82 (60-115) mg/dL Lactic Acid (0.5-2.0) mmol/L Calcium 10.5 H (8.4-10.2) mg/dL Magnesium 2.4 (1.6-2.6) mg/dL Total Bilirubin 0.7 (0.0-1.0) mg/dL Direct Bilirubin 0.2 (0.0-0.5) mg/dL AST 26 (5-31) U/L ALT 21 (0-31) U/L Alkaline Phosphatase 81 (39-117) U/L Troponin I High Sens 14.5 D (<3.5-17.0) ng/L B-Natriuretic Peptide (<100) pg/mL Total Protein 7.1 (6.5-8.0) g/dL Albumin 4.1 (3.5-5.0) g/dL Lipase 20 (8-78) U/L Urine Color Yellow Urine Appearance Clear Urine pH 6.0 (5.0-9.0) Ur Specific [place] 1.015 (1.005-1.025) Urine Protein Negative (Neg-Trace) mg/dL Urine Glucose (UA) Negative (Negative) mg/dL Urine Ketones Negative (Negative) mg/dL Urine Blood Negative (Negative) Urine Nitrite Negative (Negative) Ur Leukocyte Esterase Negative (Negative) 11/09/22 11/09/22 11/09/22 Range/Units 15:20 15:21 15:21 WBC 12.4 H (4.8-10.8) X10*3/uL RBC 4.23 (4.20-5.50) X10*6/uL Hgb 13.3 (12.0-16.0) g/dl Hct 40.5 (37.0-47.0) % MCV 95.7 (80.0-98.0) fL MCH 31.4 (27.0-33.0) pg MCHC 32.8 (31.0-35.0) g/dl RDW 14.6 (11.0-16.0) % Plt Count 234 (160-400) X10*3/uL MPV 10.7 (9.4-12.3) fL Immature Gran % (Auto) 0.8 H (0.0-0.4) % Neut % (Auto) 79.8 H (45-73) % Lymph % (Auto) 8.9 L (20-40) % Teller % (Auto) 9.7 (2-11) % Eos % (Auto) 0.2 (0-4) % Baso % (Auto) 0.6 (0-2) % Lymph # (Auto) 1.1 L (1.2-4.9) X10*3/uL Teller # (Auto) 1.2 (0.1-1.2) X10*3/uL Eos # (Auto) 0.0 (0.0-0.4) X10*3/uL Baso # (Auto) 0.1 (0.0-0.2) X10*3/uL Abs Immat Gran (auto) 0.10 H (0.00-0.03) X10*3/uL Absolute Neuts (auto) 9.9 H (2.0-8.3) x10*3/uL Absolute Nucleated RBC 0.000 (0.0-0.012) X10*3/uL Nucleated RBC % (auto) 0.0 (0.0-0.2) /100WBC PT 21.4 H (10.0-13.1) SEC INR 1.8 H (0.9-1.1) Sodium (135-145) mmol/L Potassium (3.3-5.1) mmol/L Chloride (96-108) mmol/L Carbon Dioxide (22-29) mmol/L Anion Gap (12-20) BUN (9-16) mg/dL Creatinine (0.5-1.4) mg/dL Estim Creat Clear Calc Estimated GFR Random Glucose (60-115) mg/dL Lactic Acid (0.5-2.0) mmol/L Calcium (8.4-10.2) mg/dL Magnesium (1.6-2.6) mg/dL Total Bilirubin (0.0-1.0) mg/dL Direct Bilirubin (0.0-0.5) mg/dL AST (5-31) U/L ALT (0-31) U/L Alkaline Phosphatase (39-117) U/L Troponin I High Sens (<3.5-17.0) ng/L B-Natriuretic Peptide 525 H (<100) pg/mL Total Protein (6.5-8.0) g/dL Albumin (3.5-5.0) g/dL Lipase (8-78) U/L Urine Color Urine Appearance Urine pH (5.0-9.0) Ur Specific [place] (1.005-1.025) Urine Protein (Neg-Trace) mg/dL Urine Glucose (UA) (Negative) mg/dL Urine Ketones (Negative) mg/dL Urine Blood (Negative) Urine Nitrite (Negative) Ur Leukocyte Esterase (Negative) 11/09/22 11/09/22 Range/Units 18:57 19:09 WBC (4.8-10.8) X10*3/uL RBC (4.20-5.50) X10*6/uL Hgb (12.0-16.0) g/dl Hct (37.0-47.0) % MCV (80.0-98.0) fL MCH (27.0-33.0) pg MCHC (31.0-35.0) g/dl RDW (11.0-16.0) % Plt Count (160-400) X10*3/uL MPV (9.4-12.3) fL Immature Gran % (Auto) (0.0-0.4) % Neut % (Auto) (45-73) % Lymph % (Auto) (20-40) % Teller % (Auto) (2-11) % Eos % (Auto) (0-4) % Baso % (Auto) (0-2) % Lymph # (Auto) (1.2-4.9) X10*3/uL Teller # (Auto) (0.1-1.2) X10*3/uL Eos # (Auto) (0.0-0.4) X10*3/uL Baso # (Auto) (0.0-0.2) X10*3/uL Abs Immat Gran (auto) (0.00-0.03) X10*3/uL Absolute Neuts (auto) (2.0-8.3) x10*3/uL Absolute Nucleated RBC (0.0-0.012) X10*3/uL Nucleated RBC % (auto) (0.0-0.2) /100WBC PT (10.0-13.1) SEC INR (0.9-1.1) Sodium (135-145) mmol/L Potassium (3.3-5.1) mmol/L Chloride (96-108) mmol/L Carbon Dioxide (22-29) mmol/L Anion Gap (12-20) BUN (9-16) mg/dL Creatinine (0.5-1.4) mg/dL Estim Creat Clear Calc Estimated GFR Random Glucose (60-115) mg/dL Lactic Acid 1.1 (0.5-2.0) mmol/L Calcium (8.4-10.2) mg/dL Magnesium (1.6-2.6) mg/dL Total Bilirubin (0.0-1.0) mg/dL Direct Bilirubin (0.0-0.5) mg/dL AST (5-31) U/L ALT (0-31) U/L Alkaline Phosphatase (39-117) U/L Troponin I High Sens 18.5 H (<3.5-17.0) ng/L B-Natriuretic Peptide (<100) pg/mL Total Protein (6.5-8.0) g/dL Albumin (3.5-5.0) g/dL Lipase (8-78) U/L Urine Color Urine Appearance Urine pH (5.0-9.0) Ur Specific [place] (1.005-1.025) Urine Protein (Neg-Trace) mg/dL Urine Glucose (UA) (Negative) mg/dL Urine Ketones (Negative) mg/dL Urine Blood (Negative) Urine Nitrite (Negative) Ur Leukocyte Esterase (Negative) <Mick Villegas - Last Filed: 11/09/22 21:04> Independent Interpretation I performed an independent interpretation of an: EKG (EKG sinus rhythm with premature supraventricular complexes at a rate of 86. QRS 124. Unchanged from previous. No STEMI) <EMELIA Lovett - Last Filed: 11/09/22 18:36> Radiology Impression Discussion of test interpretation with radiology: I have reviewed the radiologist's reading. <EMELIA Lovett - Last Filed: 11/09/22 18:36> External Record Review External record reviewed: Inpatient record, Office record, Outpatient record, Prior outpatient labs, Prior outpatient radiology, Primary care record and Outside ED record <EMELIA Lovett - Last Filed: 11/09/22 18:36> Tests considered The following testing was considered but not selected: As above <EMELIA Lovett Last Filed: 11/09/22 18:36> Discharge Plan Discharge Clinical Impression: Pneumonia, Hematoma of leg <EMELIA Lovett Last Filed: 11/09/22 18:36> Patient Disposition: Home, Self-Care <EMELIA Lovett Last Filed: 11/09/22 18:36> Instructions: Pneumonia (ED), Hematoma (ED) <EMELIA Lovett Last Filed: 11/09/22 18:36> Additional Instructions: You have a left lung base consolidation and a small pleural effusion. Cefpodoxime and doxycycline are antibiotics please take as prescribed Your ankle/foot x-ray does not show any fracture. You do have some soft tissue swelling to her right lower leg, this is consistent with a hematoma. Wear compression stocking Your blood work is reassuring Place of close follow-up with her doctor. If symptoms persist or worsen you develop fever unresolved with medications persist or worsen chest pain, shortness of breath, worsening swelling in your legs return to the ED <EMELIA Lovett Last Filed: 11/09/22 18:36> Prescriptions: New cefpodoxime 200 mg tablet 200 mg PO BID 7 Days Qty: 14 0RF Rx Instructions: must administer with a meal/food doxycycline hyclate 100 mg tablet 100 mg PO BID 7 Days Qty: 14 0RF No Action trazodone 50 mg tablet 100 mg PO BEDTIME Qty: 180 3RF montelukast 10 mg tablet 10 mg PO DAILY Qty: 90 3RF meclizine 25 mg tablet 25 mg PO TID PRN (Reason: dizziness) 14 Days Qty: 42 0RF albuterol sulfate 2.5 mg /3 mL (0.083 %) solution for nebulization 2.5 mg inhalation Q6H PRN (Reason: shortness of breath or wheezing) 30 Days Qty: 180 11RF metoprolol succinate 25 mg tablet extended release 24 hr 37.5 mg PO BID 90 Days Qty: 270 3RF levothyroxine [Synthroid] 25 mcg tablet 50 mcg PO SUSA@0600 levothyroxine [Synthroid] 25 mcg tablet 25 mcg PO MOTUWETHFR@0600 levalbuterol HCl [Xopenex Concentrate] 1.25 mg/0.5 mL Solution For Nebulization 1.25 mg inhalation RQ6H WHILE AWAKE Qty: 30 0RF guaifenesin [Tussin] 100 mg/5 mL liquid 200 mg PO Q4H PRN (Reason: Cough) diazepam 5 mg tablet 2.5 mg PO QID lidocaine [Lidoderm] 5 % adhesive patch,medicated 1 patch topical DAILY 30 Days Qty: 30 4RF Rx Instructions: leave on most painful area for up to 12 hrs warfarin [Jantoven] 1 mg tablet PO (DME) nebulizers Misc See Rx Instructions .Route Rx Instructions: As directed (DME) CPAP Machine/Device Device See Rx Instructions .Route Rx Instructions: As directed (DME) Oxygen Home Use Kit See Rx Instructions .Route Rx Instructions: As directed rosuvastatin 10 mg tablet 20 mg PO .COMPLEX Rx Instructions: 20 mg orally three times a week; Advair HFA 230-21 mcg/actuation HFA aerosol inhaler 2 puff inhalation BID 30 Days Qty: 12 12RF epinephrine 0.3 mg/0.3 mL auto-injector IM prednisone 5 mg tablet 10 mg PO DAILY furosemide [Lasix] 20 mg tablet 20 mg PO Q OTHER DAY Qty: 90 3RF Incruse Ellipta 62.5 mcg/actuation blister with device 1 inh inhalation DAILY <EMELIA Lovett - Last Filed: 11/09/22 18:36> Referrals: Caitlyn Bowie MD [Primary Care Provider] - 2 days <EMELIA Lovett - Last Filed: 11/09/22 18:36>
[2022-11-09 14:03] VITALS: BP 159/86; BP 170/80; PULSE 100; PULSE 97; RESP 16; TEMP 37.2; O2SAT 98; O2SAT 99; BMI 23.9
--- NOTE | 2022-11-09 14:15 | ECG_ITS ---
Test Reason : CP Blood Pressure : / mmHG Vent. Rate : 086 BPM Atrial Rate : 086 BPM P-R Int : 156 ms QRS Dur : 124 ms QT Int : 392 ms P-R-T Axes : 066 -56 079 degrees QTc Int : 469 ms Sinus rhythm with Premature supraventricular complexes Left anterior fascicular block Left ventricular hypertrophy with QRS widening and repolarization abnormality ( R in aVL , [place] product ) Abnormal ECG When compared with ECG of 20-OCT-2022 12:06, Premature supraventricular complexes are now Present Referred By: Joann Logan Electronically Signed By:INGRID TILLMAN MD
[2022-11-09] MEDS: diazePAM 2 MG TABLET PO (15:16)
[2022-11-09 15:27] LABS: MANUAL DIFF FLAG NO
[2022-11-09 15:31] LABS: Appearance Urine Clear; Color Urine Yellow; Glucose Urine UA Negative (Negative); Leukocyte Esterase Urine Negative (Negative); Nitrite Urine Negative (Negative); Specific Gravity - Urine 1.015 (1.005-1.025); Urine Blood Negative (Negative); Urine Ketones Negative (Negative); Urine Protein Negative (Neg-Trace)
[2022-11-09 15:31] LABS: Basophils Absolute Auto 0.1 X10*3/uL (0.0-0.2); Basophils Percent Auto 0.6 % (0-2); Eosinophils Percent Auto 0.2 % (0-4); Hematocrit 40.5 % (37.0-47.0); Hemoglobin 13.3 g/dl (12.0-16.0); Imm Gran Pct Auto 0.8 % (0.0-0.4); Lymphocytes Absolute Auto 1.1 X10*3/uL (1.2-4.9); Lymphocytes Percent Auto 8.9 % (20-40); Mean Corpuscular HGB Conc 32.8 g/dl (31.0-35.0); Mean Corpuscular Hemoglobin 31.4 pg (27.0-33.0); Mean Corpuscular Volume 95.7 fL (80.0-98.0); Mean Platelet Volume 10.7 fL (9.4-12.3); Monocytes Absolute Auto 1.2 X10*3/uL (0.1-1.2); Monocytes Percent Auto 9.7 % (2-11); Neutrophils Absolute Auto 9.9 x10*3/uL (2.0-8.3); Neutrophils Percent Auto 79.8 % (45-73); Platelet Count 234 X10*3/uL (160-400); Red Blood Count 4.23 X10*6/uL (4.20-5.50); Red Cell Distribution Width 14.6 % (11.0-16.0); White Blood Count 12.4 X10*3/uL (4.8-10.8)
[2022-11-09 15:35] LABS: INTERNATIONAL NORM RATIO 1.8 (0.9-1.1); Prothrombin Time 21.4 SEC (10.0-13.1)
[2022-11-09 16:04] LABS: B Type Natriuretic Peptide 525 pg/mL (<100); Troponin-I High Sensitivity 14.5 ng/L (<3.5-17.0)
[2022-11-09 16:11] LABS: Alanine Aminotransferase 21 U/L (0-31); Albumin Level 4.1 g/dL (3.5-5.0); Alkaline Phosphatase 81 U/L (39-117); Anion Gap 9 (12-20); Aspartate Amino Transferase 26 U/L (5-31); Bilirubin Direct 0.2 mg/dL (0.0-0.5); Bilirubin Total 0.7 mg/dL (0.0-1.0); Blood Urea Nitrogen 24 mg/dL (9-16); Calcium 10.5 mg/dL (8.4-10.2); Carbon Dioxide 33 mmol/L (22-29); Chloride 100 mmol/L (96-108); Creatinine Clr Calc Pharmacy 38.5; Estimated Glomerular Filt Rate 55; Glucose Random 82 mg/dL (60-115); Lipase 20 U/L (8-78); Magnesium 2.4 mg/dL (1.6-2.6); Sodium 138 mmol/L (135-145); Total Protein 7.1 g/dL (6.5-8.0)
[2022-11-09 17:59] VITALS: BP 144/77; PULSE 78; RESP 17; TEMP 37.2; O2SAT 98
[2022-11-09 18:21] VITALS: BP 165/89; PULSE 88; RESP 16; O2SAT 99
--- NOTE | 2022-11-09 18:26 | PC.NURSE ---
Pt ambulating to the bathroom with a steady gait, requesting pain medication. Pt tearful at this time. PA aware.
--- NOTE | 2022-11-09 18:35 | PC.NURSE ---
PA at bedside to discuss concerns.
[2022-11-09] MEDS: Lidocaine 4 % Patch ADH..PATCH 1 PATCH TRANSDERMA (18:37)
[2022-11-09] MEDS: Warfarin Sodium 2.5 MG TABLET PO (18:37)
--- NOTE | 2022-11-09 18:40 | PC.NURSE ---
Pt medicated per MAR for pain, refusing Tylenol. 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 Plan for IV ABX.
--- NOTE | 2022-11-09 19:04 | PC.NURSE ---
contract technician having a difficult time obtaining labs. Awaiting BCX prior to ABX.
[2022-11-09 19:15] LABS: Lactic Acid 1.1 mmol/L (0.5-2.0)
[2022-11-09] MEDS: cefTRIAXone sodium 1 GM in 0.9 % Sodium Chloride 50 ML IV (19:33)
[2022-11-09] MEDS: Doxycycline Monohydrate 100 MG CAPSULE PO (19:33)
[2022-11-09 19:51] LABS: Troponin-I High Sensitivity 18.5 ng/L (<3.5-17.0)
== END 2022-11-09 21:41 | disposition home or self-care (01) ==
PROVIDERS: Physician Assistant; Emergency Provider Student in an Organized Health Care Education/Training Program; PCP Internal Medicine
DX: J18.9 Pneumonia, unspecified organism (principal); S80.11XA Contusion of right lower leg, initial encounter; W18.30XA Fall on same level, unspecified, initial encounter; J90 Pleural effusion, not elsewhere classified; M79.604 Pain in right leg; I10 Essential (primary) hypertension; C34.90 Malignant neoplasm of unspecified part of unspecified bronchus or lung; Z79.01 Long term (current) use of anticoagulants; Y93.9 Activity, unspecified; Y92.512 Supermarket, store or market as the place of occurrence of the external cause; Y99.9 Unspecified external cause status
CPT/HCPCS: 36415; 71046; 73610; 73630; 78580; 80048; 80076; 81003; 83605; 83690; 83735; 83880; 84484; 85025; 85610; 87040; 93005; 93971; 96365; 99284; 99285; A9540; J0696

== ENCOUNTER → 2022-11-18 10:19 | Outpatient (BNVA) | payer MEDICARE, SELFPAY | PROVIDERS: PCP Internal Medicine; Visit Provider Nurse Practitioner Family | DX: J18.9 Pneumonia, unspecified organism (principal); R06.00 Dyspnea, unspecified; M54.9 Dorsalgia, unspecified | CPT/HCPCS: 99212 ==

== ENCOUNTER → 2022-11-21 13:53 | Outpatient (BNVA) | payer MEDICARE, SELFPAY | PROVIDERS: PCP Internal Medicine; Visit Provider Internal Medicine Cardiovascular Disease | DX: I50.30 Unspecified diastolic (congestive) heart failure (principal); I34.0 Nonrheumatic mitral (valve) insufficiency; I27.20 Pulmonary hypertension, unspecified | CPT/HCPCS: 99212 ==

== ENCOUNTER → 2022-11-23 09:46 | Outpatient (BNVA) | payer MEDICARE, SELFPAY | PROVIDERS: PCP Internal Medicine; Visit Provider Hospitalist | DX: J44.9 Chronic obstructive pulmonary disease, unspecified (principal) | CPT/HCPCS: 94640; 99211 ==

== ENCOUNTER 2022-11-24 11:38 | Outpatient (REF) | payer MEDICARE, SELFPAY | END 2022-11-24 11:39 | disposition home or self-care (01) | LOC: HO.LNP 11:38 | PROVIDERS: Visit Provider Hospitalist | DX: R05.9 Cough, unspecified (principal) | CPT/HCPCS: 87070; 87205 ==

== ENCOUNTER 2022-11-28 12:18 | Outpatient (REF) | payer MEDICARE, SELFPAY | END 2022-11-28 12:19 | disposition home or self-care (01) | LOC: HO.LAB 12:18 | PROVIDERS: PCP Internal Medicine; Visit Provider Internal Medicine Cardiovascular Disease | DX: Z13.89 Encounter for screening for other disorder (principal) ==

== ENCOUNTER 2022-11-29 13:54 | Outpatient (REF) | payer MEDICARE, SELFPAY ==
--- NOTE | ~2022-11-29 | XR_ITS ---
EXAMINATION: XR CHEST CLINICAL INFORMATION: Fluoroscopy in the COMPARISON: Previous chest x-ray most recent November 2022 TECHNIQUE: 2 views of the chest were obtained. FINDINGS: Volume loss to the left hemithorax. The cardiac silhouette is slightly enlarged. shank rander overlying the cardiac silhouette in the region of the left atrium. Hilar and mediastinal contours are unremarkable. Small left pleural effusion similar to previous exams. Subsegmental atelectasis at the left lung base also similar to previous exams. The right lung is clear. No right pleural effusion. No pneumothorax. Osteopenia and degenerative changes of the spine. XR/XR chest 2V IMPRESSION: No evidence for acute disease in the chest. Volume loss to the left hemithorax, small left pleural effusion and atelectasis at the left lung base similar to previous exams.
[2022-11-29 14:16] LABS: MANUAL DIFF FLAG NO
[2022-11-29 15:13] LABS: Basophils Absolute Auto 0.1 X10*3/uL (0.0-0.2); Basophils Percent Auto 0.6 % (0-2); Eosinophils Percent Auto 0.2 % (0-4); Hematocrit 39.6 % (37.0-47.0); Hemoglobin 12.6 g/dl (12.0-16.0); Imm Gran Abs Auto 0.17 X10*3/uL (0.00-0.03); Imm Gran Pct Auto 1.3 % (0.0-0.4); Lymphocytes Absolute Auto 0.9 X10*3/uL (1.2-4.9); Lymphocytes Percent Auto 7.1 % (20-40); Mean Corpuscular HGB Conc 31.8 g/dl (31.0-35.0); Mean Corpuscular Hemoglobin 31.8 pg (27.0-33.0); Monocytes Absolute Auto 0.7 X10*3/uL (0.1-1.2); Monocytes Percent Auto 4.9 % (2-11); Neutrophils Absolute Auto 11.3 x10*3/uL (2.0-8.3); Neutrophils Percent Auto 85.9 % (45-73); Platelet Count 289 X10*3/uL (160-400); Red Blood Count 3.96 X10*6/uL (4.20-5.50); Red Cell Distribution Width 14.6 % (11.0-16.0); White Blood Count 13.2 X10*3/uL (4.8-10.8)
[2022-11-29 15:39] LABS: B Type Natriuretic Peptide 352 pg/mL (<100)
[2022-11-29 15:42] LABS: Anion Gap 13 (12-20); Blood Urea Nitrogen 23 mg/dL (9-16); Carbon Dioxide 31 mmol/L (22-29); Chloride 98 mmol/L (96-108); Estimated Glomerular Filt Rate 58; Glucose Random 166 mg/dL (60-115); Potassium 3.6 mmol/L (3.3-5.1); Sodium 138 mmol/L (135-145)
[2022-11-29 15:48] LABS: Troponin-I High Sensitivity 14.6 ng/L (<3.5-17.0)
[2022-11-29 17:27] LABS: Erythrocyte Sedimentation Rate 31 MM/HR (0-20)
== END 2022-11-29 13:55 | disposition home or self-care (01) ==
LOC: HO.XRAY 13:54
PROVIDERS: Absent Provider Hospitalist; PCP Internal Medicine; Visit Provider Internal Medicine Cardiovascular Disease
DX: R07.81 Pleurodynia (principal); I50.30 Unspecified diastolic (congestive) heart failure
CPT/HCPCS: 36415; 71046; 80048; 83880; 84484; 85025; 85652; 87070; 87205

== ENCOUNTER → 2022-12-06 16:34 | Outpatient (REF) | payer MEDICARE, SELFPAY ==
--- NOTE | ~2022-12-06 | NM_ITS ---
EXAMINATION: NM LUNG IMAGE PERFUSION CLINICAL INFORMATION: Chest pain. Pulmonary hypertension. Lung cancer. COMPARISON: None available. TECHNIQUE: Following intravenous administration of 1 mCi of technetium 99 MAA, imaging of both lungs were obtained in multiple projections. FINDINGS: There is normal perfusion seen to entire bilateral lungs with nonsegmental peripheral defects. No segmental or subsegmental defects seen. Ventilation study was not performed. NM/NM pul perfusion IMPRESSION: No segmental or subsegmental defects seen. Findings suggestive of low likelihood for PE. .
--- NOTE | ~2022-12-06 | XR_ITS ---
EXAMINATION: XR CHEST CLINICAL INFORMATION: Pleurodynia COMPARISON: Chest 11/29/2022, 11/09/2022 TECHNIQUE: 2 views of the chest were obtained. FINDINGS: There is no significant interval change. Volume loss to the left hemithorax is again seen. The cardiac silhouette is slightly enlarged. enterprise mobility architect overlying the cardiac silhouette the region of the left atrium. Hilar and mediastinal contours are unremarkable. Small left pleural effusion similar to the prior exams. Subsegmental atelectasis at the left lung base also similar to previous exams. The right lung is clear. No right pleural effusion. No pneumothorax. Osteopenia and degenerative changes of the spine. XR/XR chest 2V IMPRESSION: No significant interval change. No evidence for acute disease in the chest. Volume loss to the left hemithorax, small left pleural effusion and atelectasis at the left lung base similar to prior exams.
== END ==
LOC: HO.NUCMED 16:34
PROVIDERS: Visit Provider Hospitalist
DX: R07.9 Chest pain, unspecified (principal); R07.81 Pleurodynia
CPT/HCPCS: 71046; 78580; A9540

== ENCOUNTER → 2022-12-08 10:50 | Outpatient (BNVA) | payer MEDICARE, SELFPAY | PROVIDERS: PCP Internal Medicine; Visit Provider Hospitalist | DX: I27.20 Pulmonary hypertension, unspecified (principal); R07.81 Pleurodynia; I34.0 Nonrheumatic mitral (valve) insufficiency; R91.8 Other nonspecific abnormal finding of lung field; J96.10 Chronic respiratory failure, unspecified whether with hypoxia or hypercapnia; G47.33 Obstructive sleep apnea (adult) (pediatric); J70.1 Chronic and other pulmonary manifestations due to radiation; D68.61 Antiphospholipid syndrome; G47.00 Insomnia, unspecified; R76.8 Other specified abnormal immunological findings in serum; Z79.899 Other long term (current) drug therapy | CPT/HCPCS: 99212 ==

== ENCOUNTER 2022-12-12 17:43 | Emergency (ER) | payer MEDICARE, SELFPAY ==
--- NOTE | ~2022-12-12 | XR_ITS ---
EXAMINATION: XR CHEST CLINICAL INFORMATION: Back pain COMPARISON: Previous chest x-ray 12/06/2021 TECHNIQUE: Frontal view of the chest was obtained. FINDINGS: The cardiac silhouette is slightly enlarged but stable. concrete inspector overlying the heart unchanged. Hilar and mediastinal contours are unremarkable. Volume loss to the left hemithorax. Pleural and parenchymal disease at the left lung base similar to previous exam. The right lung is clear. No right pleural effusion. No pneumothorax. No acute bone abnormality. XR/XR chest 1V IMPRESSION: Stable volume loss to the left hemithorax and pleural and parenchymal disease at the left lung base from previous chest x-rays.
[2022-12-12 17:49] VITALS: BP 165/95; PULSE 102; O2SAT 98
[2022-12-12 18:31] VITALS: BP 176/100; PULSE 101; RESP 14; TEMP 36.1; O2SAT 97; BMI 23.6
--- NOTE | 2022-12-12 18:54 | ED.GENADULT ---
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 3 days ago and was told that she has a muscular pain and upper back comes here again for some pain which is going on for more than a month is mostly interscapular increases on movement of the upper extremities patient does not want to take any pain medication although been prescribed pain medication by MD no significant shortness of breath no palpitation or syncope no fever no chills no cough Related Data Home Medications Medication Instructions Recorded Confirmed levothyroxine 25 mcg tablet 50 mcg PO SUSA@0600 05/25/22 11/23/22 (Synthroid) levothyroxine 25 mcg tablet 25 mcg PO MOTUWETHFR@0600 06/14/22 11/23/22 (Synthroid) CPAP (CPAP Machine/Device) 06/30/22 11/23/22 Oxygen Home Use 06/30/22 11/23/22 nebulizers 06/30/22 11/23/22 warfarin 1 mg tablet (Jantoven) mg PO 06/30/22 11/23/22 epinephrine 0.3 mg/0.3 mL IM 07/14/22 11/23/22 injection, auto-injector rosuvastatin 10 mg tablet 20 mg PO .COMPLEX 07/28/22 11/23/22 diazepam 5 mg tablet 5 mg PO BID Anxiety and Sleep 11/21/22 11/23/22 levocetirizine 5 mg tablet 5 mg PO DAILY 11/21/22 11/23/22 metoprolol succinate 25 mg 25 mg PO BID 11/21/22 11/23/22 tablet,extended release 24 hr prednisone 5 mg tablet 5 mg PO DAILY 11/21/22 11/23/22 furosemide 20 mg tablet (Lasix) See Rx Instructions .Route .COMPLEX 11/23/22 11/22/22 Previous Rx's Medication Instructions Recorded trazodone 50 mg tablet 100 mg PO BEDTIME #180 tabs 06/24/22 montelukast 10 mg tablet 10 mg PO DAILY #90 tabs 06/27/22 lidocaine 5 % topical patch 1 patch topical DAILY 30 days #30 07/20/22 (Lidoderm) ea Advair HFA 230 mcg-21 2 puff inhalation BID 30 days #12 09/08/22 mcg/actuation aerosol inhaler grams (fluticasone propion-salmeterol) meclizine 25 mg tablet 25 mg PO TID PRN dizziness 14 days 09/12/22 #42 tabs albuterol sulfate 2.5 mg/3 mL 2.5 mg (3 mL) inhalation Q6H PRN 09/21/22 (0.083 %) solution for nebulization shortness of breath or wheezing 30 days #180 mL chlorhexidine gluconate 0.12 % 15 ml buccal BID 14 days #420 mL 12/09/22 mouthwash tramadol 50 mg tablet 50 mg PO Q8-12H PRN pain #20 tabs 12/13/22 Allergies Allergy/AdvReac Type Severity Reaction Status Date / Time avocado [AVOCADO] Allergy Mild ITCHY Verified 12/08/22 11:07 THROAT, RASH azithromycin [AZITHROMYCIN] Allergy Mild ITCHY Verified 12/08/22 11:07 THROAT, RASH barium iodide [BARIUM IODIDE] Allergy Mild ITCHY Verified 12/08/22 11:07 THROAT, RASH barium sulfate Allergy Mild Itch Verified 12/08/22 11:07 bee pollen [BEE STINGS] Allergy Mild ITCHY Verified 12/08/22 11:07 THROAT, RASH ciprofloxacin [From CIPRO] Allergy Mild ITCHY Verified 12/08/22 11:07 THROAT, RASH clarithromycin [From BIAXIN] Allergy Mild ITCHY Verified 12/08/22 11:07 THROAT, RASH diatrizoate meglumine Allergy Mild ITCHY Verified 12/08/22 11:07 [From GASTROGRAFIN] THROAT, RASH diatrizoate sodium Allergy Mild ITCHY Verified 12/08/22 11:07 [From GASTROGRAFIN] THROAT, RASH diclofenac [From VOLTAREN] Allergy Mild ITCHY Verified 12/08/22 11:07 THROAT, RASH erythromycin base Allergy Mild ITCHY Verified 12/08/22 11:07 [ERYTHROMYCIN BASE] THROAT, RASH gentamicin [GENTAMICIN] Allergy Mild ITCHY Verified 12/08/22 11:07 THROAT, RASH Iodinated Contrast Media Allergy Mild ITCHY Verified 12/08/22 11:07 [IVP DYE] THROAT, RASH levofloxacin [From LEVAQUIN] Allergy Mild ITCHY Verified 12/08/22 11:07 THROAT, RASH metronidazole [From FLAGYL] Allergy Mild ITCHY Verified 12/08/22 11:07 THROAT, RASH moxifloxacin [From AVELOX] Allergy Mild ITCHY Verified 12/08/22 11:07 THROAT, RASH Penicillins [PENICILLINS] Allergy Mild ITCHY Verified 12/08/22 11:07 THROAT, RASH shrimp [SHRIMP] Allergy Mild ITCHY Verified 12/08/22 11:07 THROAT, RASH Sulfa (Sulfonamide Allergy Mild ITCHY Verified 12/08/22 11:07 Antibiotics) THROAT, [SULFA (SULFONAMIDE RASH ANTIBIOTICS)] vancomycin [VANCOMYCIN] Allergy Mild ITCHY Verified 12/08/22 11:07 THROAT, RASH Review of Systems Review of Systems: Yes all other systems are reviewed and are negative PMFSH Past Medical History Medical History (HFpEF) heart failure with preserved ejection fraction Allergic bronchitis CLARA positive Anti-phospholipid antibody syndrome Anxiety Arterial insufficiency of lower extremity Chronic anticoagulation Chronic respiratory failure Complex regional pain syndrome i of right lower limb COPD (chronic obstructive pulmonary disease) Diverticulitis Dyspnea Factor 5 Leiden mutation, heterozygous GERD (gastroesophageal reflux disease) Hemoptysis History of COVID-19 History of non-ST elevation myocardial infarction (NSTEMI) Hyperlipidemia Hypertension Hypogammaglobulinemia Hypothyroidism Hypoxia Insomnia Lung cancer KANDY treated with BiPAP Pericardial effusion Pleural effusion Pleuritic chest pain Pneumonitis Post herpetic neuralgia PTSD (post-traumatic stress disorder) Pulmonary emboli Pulmonary hypertension Pulmonary nodules Radiation fibrosis of lung Subarachnoid bleed Tracheobronchitis Surgical History History of cardiac cath History of colonoscopy History of hysterectomy History of lung surgery History of tonsillectomy S/P mitral valve clip implantation Family History Family History Sister No problems noted. Mother Cardiovascular disease Daughter Tachycardia Other KANDY (obstructive sleep apnea) Social History Social History Household Members: None Housing: House Do you presently have visiting nurse or other home services: Yes Alcohol intake: former Patient Tobacco Use Status: Never used Tobacco Smoked in Last 30 Days: No Second Hand Smoke Exposure: No Use of substances other than those prescribed or required for medical reasons: No Advance Directives: Yes Advance Directives on File: Yes Advance Directives Date on File: 06/15/22 service: No Current occupational status: retired Physical Exam ED Vital Signs: Vital Signs - 24 hr 12/12/22 18:31 12/12/22 21:49 12/12/22 23:25 Temperature 97.0 F 96.9 F Pulse Rate 101 H 85 83 Respiratory Rate 14 16 14 Blood Pressure 176/100 H 170/84 H 163/81 H Pulse Oximetry 97 97 97 Oxygen Delivery Method Room Air Room Air Room Air BMI result Body Mass Index 23.6 Appearance: Alert. Oriented X3. No acute distress. Extremely anxious Eyes: No pallor or icterus ENT: Pharynx normal. Oral Mucosa moist Neck: Normal inspection. Neck supple. CVS: Normal heart rate and rhythm. Pulses normal. Respiratory: No respiratory distress. Equal air entry bilateral, no wheezing/rales/rhonchi diffuse muscular tenderness scapular area no spinal tenderness good range of spine movement Abdomen: Soft and nontender. Bowel sounds are present, no mass palpable, no CVA tenderness Skin: Skin warm and dry. Normal skin color. Normal skin turgor. Extremities: No lower extremity edema. No calf tenderness Neuro: Oriented X 3. No motor deficit. No sensory deficit. Course Course Course Narrative: Patient complains of neck pain and upper back pain radiating to the chest, chest x-ray and cervical spine CT are ordered Patient is in no distress, labs are ordered Medical Decision Making Lab Data 12/12/22 22:02 12/12/22 22:02 Labs: Lab Results 12/12/22 12/12/22 12/12/22 Range/Units 22:02 22:02 22:02 WBC 12.9 H (4.8-10.8) X10*3/uL RBC 4.03 L (4.20-5.50) X10*6/uL Hgb 12.7 (12.0-16.0) g/dl Hct 39.3 (37.0-47.0) % MCV 97.5 (80.0-98.0) fL MCH 31.5 (27.0-33.0) pg MCHC 32.3 (31.0-35.0) g/dl RDW 14.8 (11.0-16.0) % Plt Count 232 (160-400) X10*3/uL MPV 10.4 (9.4-12.3) fL Immature Gran % (Auto) 0.9 H (0.0-0.4) % Neut % (Auto) 78.5 H (45-73) % Lymph % (Auto) 9.7 L (20-40) % [place] % (Auto) 9.9 (2-11) % Eos % (Auto) 0.5 (0-4) % Baso % (Auto) 0.5 (0-2) % Lymph # (Auto) 1.3 (1.2-4.9) X10*3/uL [place] # (Auto) 1.3 H (0.1-1.2) X10*3/uL Eos # (Auto) 0.1 (0.0-0.4) X10*3/uL Baso # (Auto) 0.1 (0.0-0.2) X10*3/uL Abs Immat Gran (auto) 0.12 H (0.00-0.03) X10*3/uL Absolute Neuts (auto) 10.1 H (2.0-8.3) x10*3/uL Absolute Nucleated RBC 0.000 (0.0-0.012) X10*3/uL Nucleated RBC % (auto) 0.0 (0.0-0.2) /100WBC PT (10.0-13.1) SEC INR (0.9-1.1) Sodium 138 (135-145) mmol/L Potassium 3.6 (3.3-5.1) mmol/L Chloride 102 (96-108) mmol/L Carbon Dioxide 26 (22-29) mmol/L Anion Gap 14 (12-20) BUN 18 H (9-16) mg/dL Creatinine 0.77 (0.5-1.4) mg/dL Estim Creat Clear Calc 49.0 Estimated GFR > 60 POC Glucose (60-115) mg/dL Random Glucose 169 H (60-115) mg/dL Calcium 10.3 H (8.4-10.2) mg/dL Troponin I High Sens 19.1 H (<3.5-17.0) ng/L 12/12/22 12/12/22 Range/Units 22:07 22:11 WBC (4.8-10.8) X10*3/uL RBC (4.20-5.50) X10*6/uL Hgb (12.0-16.0) g/dl Hct (37.0-47.0) % MCV (80.0-98.0) fL MCH (27.0-33.0) pg MCHC (31.0-35.0) g/dl RDW (11.0-16.0) % Plt Count (160-400) X10*3/uL MPV (9.4-12.3) fL Immature Gran % (Auto) (0.0-0.4) % Neut % (Auto) (45-73) % Lymph % (Auto) (20-40) % [place] % (Auto) (2-11) % Eos % (Auto) (0-4) % Baso % (Auto) (0-2) % Lymph # (Auto) (1.2-4.9) X10*3/uL [place] # (Auto) (0.1-1.2) X10*3/uL Eos # (Auto) (0.0-0.4) X10*3/uL Baso # (Auto) (0.0-0.2) X10*3/uL Abs Immat Gran (auto) (0.00-0.03) X10*3/uL Absolute Neuts (auto) (2.0-8.3) x10*3/uL Absolute Nucleated RBC (0.0-0.012) X10*3/uL Nucleated RBC % (auto) (0.0-0.2) /100WBC PT 21.0 H (10.0-13.1) SEC INR 1.8 H (0.9-1.1) Sodium (135-145) mmol/L Potassium (3.3-5.1) mmol/L Chloride (96-108) mmol/L Carbon Dioxide (22-29) mmol/L Anion Gap (12-20) BUN (9-16) mg/dL Creatinine (0.5-1.4) mg/dL Estim Creat Clear Calc Estimated GFR POC Glucose 162 H (60-115) mg/dL Random Glucose (60-115) mg/dL Calcium (8.4-10.2) mg/dL Troponin I High Sens (<3.5-17.0) ng/L Discharge Plan Discharge Clinical Impression: Fibromyalgia Patient Disposition: Home, Self-Care Instructions: Fibromyalgia (ED) Additional Instructions: Your pain is likely muscular likely fibromyalgia Take pain medication as prescribed and follow up with your PCP Prescriptions: New tramadol 50 mg tablet 50 mg PO Q8-12H PRN (Reason: pain) Qty: 20 0RF No Action trazodone 50 mg tablet 100 mg PO BEDTIME Qty: 180 3RF montelukast 10 mg tablet 10 mg PO DAILY Qty: 90 3RF meclizine 25 mg tablet 25 mg PO TID PRN (Reason: dizziness) 14 Days Qty: 42 0RF albuterol sulfate 2.5 mg /3 mL (0.083 %) solution for nebulization 2.5 mg inhalation Q6H PRN (Reason: shortness of breath or wheezing) 30 Days Qty: 180 11RF levothyroxine [Synthroid] 25 mcg tablet 50 mcg PO SUSA@0600 levothyroxine [Synthroid] 25 mcg tablet 25 mcg PO MOTUWETHFR@0600 diazepam 5 mg tablet 5 mg PO BID lidocaine [Lidoderm] 5 % adhesive patch,medicated 1 patch topical DAILY 30 Days Qty: 30 4RF Rx Instructions: leave on most painful area for up to 12 hrs warfarin [Jantoven] 1 mg tablet PO (DME) [place] [facility] [place] .Route Rx Instructions: As directed (DME) CPAP Machine/Device Device See Rx Instructions .Route Rx Instructions: As directed (DME) Oxygen Home Use Kit See Rx Instructions .Route Rx Instructions: As directed rosuvastatin 10 mg tablet 20 mg PO .COMPLEX Rx Instructions: 20 mg orally three times a week; Advair HFA 230-21 mcg/actuation HFA aerosol inhaler 2 puff inhalation BID 30 Days Qty: 12 12RF epinephrine 0.3 mg/0.3 mL auto-injector IM prednisone 5 mg tablet 5 mg PO DAILY chlorhexidine gluconate 0.12 % mouthwash 15 ml buccal BID 14 Days Qty: 420 1RF metoprolol succinate 25 mg tablet extended release 24 hr 25 mg PO BID levocetirizine 5 mg tablet 5 mg PO DAILY furosemide [Lasix] 20 mg tablet See Rx Instructions .ROUTE .COMPLEX Rx Instructions: Take 40 mg and 20 mg on alternate days.;
[2022-12-12 21:49] VITALS: BP 170/84; PULSE 85; RESP 16; TEMP 36.1; O2SAT 97
[2022-12-12 22:07] LABS: MANUAL DIFF FLAG NO
[2022-12-12 22:13] LABS: Basophils Absolute Auto 0.1 X10*3/uL (0.0-0.2); Basophils Percent Auto 0.5 % (0-2); Eosinophils Absolute Auto 0.1 X10*3/uL (0.0-0.4); Eosinophils Percent Auto 0.5 % (0-4); Hematocrit 39.3 % (37.0-47.0); Hemoglobin 12.7 g/dl (12.0-16.0); Imm Gran Abs Auto 0.12 X10*3/uL (0.00-0.03); Imm Gran Pct Auto 0.9 % (0.0-0.4); Lymphocytes Absolute Auto 1.3 X10*3/uL (1.2-4.9); Lymphocytes Percent Auto 9.7 % (20-40); Mean Corpuscular HGB Conc 32.3 g/dl (31.0-35.0); Mean Corpuscular Hemoglobin 31.5 pg (27.0-33.0); Mean Corpuscular Volume 97.5 fL (80.0-98.0); Mean Platelet Volume 10.4 fL (9.4-12.3); Monocytes Absolute Auto 1.3 X10*3/uL (0.1-1.2); Monocytes Percent Auto 9.9 % (2-11); Neutrophils Absolute Auto 10.1 x10*3/uL (2.0-8.3); Neutrophils Percent Auto 78.5 % (45-73); Platelet Count 232 X10*3/uL (160-400); Red Blood Count 4.03 X10*6/uL (4.20-5.50); Red Cell Distribution Width 14.8 % (11.0-16.0); White Blood Count 12.9 X10*3/uL (4.8-10.8)
[2022-12-12 22:16] LABS: Glucose, Whole Blood 162 mg/dL (60-115)
[2022-12-12 22:24] LABS: INTERNATIONAL NORM RATIO 1.8 (0.9-1.1)
[2022-12-12 22:30] LABS: Anion Gap 14 (12-20); Blood Urea Nitrogen 18 mg/dL (9-16); Calcium 10.3 mg/dL (8.4-10.2); Carbon Dioxide 26 mmol/L (22-29); Chloride 102 mmol/L (96-108); Estimated Glomerular Filt Rate > 60; Glucose Random 169 mg/dL (60-115); Potassium 3.6 mmol/L (3.3-5.1); Sodium 138 mmol/L (135-145)
[2022-12-12 22:37] LABS: Troponin-I High Sensitivity 19.1 ng/L (<3.5-17.0)
[2022-12-12 23:25] VITALS: BP 163/81; PULSE 83; RESP 14; O2SAT 97
== END 2022-12-13 00:20 | disposition home or self-care (01) ==
PROVIDERS: Physician Assistant Medical; Emergency Provider Internal Medicine; PCP Internal Medicine
DX: M79.7 Fibromyalgia (principal); I11.0 Hypertensive heart disease with heart failure; I50.9 Heart failure, unspecified; E78.5 Hyperlipidemia, unspecified; R06.00 Dyspnea, unspecified; J96.10 Chronic respiratory failure, unspecified whether with hypoxia or hypercapnia; Z99.81 Dependence on supplemental oxygen; Z86.711 Personal history of pulmonary embolism; Z85.118 Personal history of other malignant neoplasm of bronchus and lung; Z79.01 Long term (current) use of anticoagulants; Z79.02 Long term (current) use of antithrombotics/antiplatelets; Z79.899 Other long term (current) drug therapy
CPT/HCPCS: 36415; 71045; 80048; 82947; 84484; 85025; 85610; 99283; 99284

== ENCOUNTER → 2022-12-28 10:59 | Outpatient (REF) | payer MEDICARE, SELFPAY ==
--- NOTE | 2022-12-28 11:15 | CA_ITS ---
Transthoracic Echocardiogram Patient (Last, First, Middle): Jovana Malik J Gender: Female Date of : 1945 Age: 77 Procedure Date: 12/28/2022 Procedure Type: Transthoracic Echocardiogram Location: OP Height: 160.02 cm Weight: 58.97 kg BSA: 1.61 m2 Heart Rate: 82 bpm BP: 120 / 65 mmHg Leadership Coach: CONOR Referring MD: MARIE SEAY Symptoms: PULMONARY HTN Study Quality: Fair ECG Rhythm: Sinus Conclusions: - Normal left ventricular size and systolic function. There is mildly increased left ventricular wall thickness. The visually estimated ejection fraction is between 55-60%. - E/E prime ratio is >15, consistent with elevated filling pressures. - The left atrium is mildly dilated. There is ASD (s/p trans septal for mitraclip) with left to right shunting. The right atrium is severely dilated. - There is mild aortic valve regurgitation. Findings Left Ventricle Normal left ventricular size and systolic function. There is mildly increased left ventricular wall thickness. The visually estimated ejection fraction is between 55-60%. There is no evidence of regional wall motion abnormalities. Abnormal diastolic function is noted. Spectral Doppler is indicative of an impaired relaxation filling pattern. E/E prime ratio is >15, consistent with elevated filling pressures. Right Ventricle There is normal right ventricular systolic function. RV is mild to moderately dilated. Atria The left atrium is mildly dilated. There is ASD (s/p trans septal for mitraclip) with left to right shunting. The right atrium is severely dilated. Aortic Valve There is a normal trileaflet aortic valve. There is mild calcification of the aortic valve. There is no aortic valve stenosis. There is mild aortic valve regurgitation. Mitral Valve There is mild mitral valve regurgitation. Post mitraclip. Mean gradient across MV is 8-9 mm Hg at HR 86/min. There is mitral stenosis which is iatrogenic sec to mitraclip. Trace mitral valve regurgitation. Pulmonic Valve Normal pulmonic valve structure and function. There is no pulmonic valve regurgitation. Tricuspid Valve Normal tricuspid valve structure. There is moderate to severe tricuspid valve regurgitation. Normal right atrial pressure. Mild to moderate pulmonary hypertension is present. Great Vessels All visible segments of the aorta are normal in size. The visualized portions of the pulmonary artery and branches are normal. Venous The inferior vena cava is dilated and collapses greater than 50% with inspiration. Pericardium/Pleural There is a small circumferential pericardial effusion. There is a moderate pleural effusion. Prior Study Comparison Changes noted compared to prior study dated: 09/05/2022. Elevated filling pressures, mild to moderate RV dilation, severe RA dilation, small pericardial and moderate pleural effusion. Measurements 2D Linear Measurements IVSd: 1.03 0.6-0.9/0.6-1.0 cm LVIDd: 3.92 3.9-5.3/4.2-5.9 cm LVIDd Index: 2.43 2.4-3.2/2.2-3.1 cm/m2 LVIDs: 2.89 2.0-3.6 cm LVPWd: 0.85 0.7-1.1 cm Ao Root: 3.30 2.1-3.5 cm LA Diam: 3.40 2.7-3.8/3.0-4.0 cm LAIDs Index: 2.11 1.5-2.3 cm/m2 LV Mass: 139.75 67-162/88-224 g LV Mass Index: 86.80 43-95/49-115 g/m2 LVOT Diam: 1.90 3.0+(-)1.3 cm 2D Systolic Function EF 4C: 53.00 >55% EF 2C: 61.20 >55% EF BiP: 57.90 >55% Mitral Valve MV VTI: 0.47 MV Pk Memo: 1.73 MV Mn Memo: 1.30 MV Pk Grad: 12.00 MV Mn Grad: 8.00 MV Pk E: 1.77 MV PK A: 1.68 MV Decel Time: 378.00 E/A: 1.10 E'Lateral: 196.00 E'Medial: 3.90 E/E' Med: 45.40 E/E' Lat: 0.90 PHT: 111.00 MVA PHT: 1.98 MVA Continuity: 0.94 Decel [place]: 4.69 Aortic Valve AoV Pk Memo: 0.95 AoV Mn Memo: 0.67 AoV VTI: 0.19 AoV Pk Grad: 4.00 Aov Mn Grad: 2.00 HARLEY Cont.VTI: 2.39 AI Pk Memo: 3.83 AI [place]: 3.69 LVOT LVOT Pk Memo: 0.72 LVOT Mn Memo: 0.58 LVOT VTI: 0.16 LVOT Pk Grad: 2.00 LVOT Mn Grad: 1.00 LVOT Diam: 1.90 LVOT Area: 2.84 Diastolic Function MV Pk E: 1.77 MV Pk A: 1.68 E/A: 1.10 E'Medial: 3.90 E/E' Med: 45.40 E' Laterial: 196.00 E/E' Lat: 0.90 Right Ventricle TAPSE (mm): 24.00 TVS' Memo: 16.60 Tricuspid Valve TR Pk Memo: 3.33 TR Pk Grad: 44.00 RA Press: 3.00 RVSP: 47.00 Great Vessels Aorta Ao Root-2D: 3.30 2.0-3.7 cm Ao Asc: 2.70 2.1-3.4 cm Pulmonary Valve PV Pk Memo: 0.86 Peak PV Grad: 3.00 Updated in Other Vendor System with Status of Final Luis Eduardo Cadet MD electronically signed on 12/29/2022 9:45:52 AM with status of Final
== END ==
LOC: HO.CARD 10:59
PROVIDERS: PCP Internal Medicine; Visit Provider Internal Medicine
DX: I27.20 Pulmonary hypertension, unspecified (principal)
CPT/HCPCS: 93306

== ENCOUNTER 2022-12-29 12:34 | Outpatient (REF) | payer MEDICARE, SELFPAY ==
--- NOTE | ~2022-12-29 | XR_ITS ---
EXAMINATION: XR CHEST CLINICAL INFORMATION: Congestive heart failure COMPARISON: December 12, 2022 TECHNIQUE: 2 views of the chest were obtained. FINDINGS: There is no significant change in left lower lobe consolidation and left pleural effusion. No pneumothorax identified. Heart normal size. No evidence of pulmonary edema. Clips/closure device seen overlying the mediastinum. XR/XR chest 2V IMPRESSION: No significant change from previous study. Left base airspace disease and effusion without evidence of pulmonary edema.
== END 2022-12-29 12:35 | disposition home or self-care (01) ==
LOC: CF 12:34
PROVIDERS: PCP Internal Medicine; Visit Provider Internal Medicine Cardiovascular Disease
DX: I50.30 Unspecified diastolic (congestive) heart failure (principal); R06.02 Shortness of breath; I27.20 Pulmonary hypertension, unspecified; R00.2 Palpitations; Z79.899 Other long term (current) drug therapy; Z98.890 Other specified postprocedural states; Z95.818 Presence of other cardiac implants and grafts
CPT/HCPCS: 71046; 93005; 99212

== ENCOUNTER → 2023-01-02 10:50 | Outpatient (BNVA) | payer MEDICARE, SELFPAY | PROVIDERS: PCP Internal Medicine; Visit Provider Hospitalist | DX: I34.0 Nonrheumatic mitral (valve) insufficiency (principal); I27.20 Pulmonary hypertension, unspecified; R91.8 Other nonspecific abnormal finding of lung field; J96.10 Chronic respiratory failure, unspecified whether with hypoxia or hypercapnia; G47.33 Obstructive sleep apnea (adult) (pediatric); J70.1 Chronic and other pulmonary manifestations due to radiation; D68.61 Antiphospholipid syndrome; Q21.10 Atrial septal defect, unspecified; S22.000A Wedge compression fracture of unspecified thoracic vertebra, initial encounter for closed fracture; Z79.52 Long term (current) use of systemic steroids; Z79.899 Other long term (current) drug therapy; Z99.81 Dependence on supplemental oxygen | CPT/HCPCS: 99212 ==

== ENCOUNTER → 2023-01-05 11:30 | Outpatient (REF) | payer MEDICARE, SELFPAY | LOC: HO.CARD 11:30 | PROVIDERS: Visit Provider Internal Medicine Cardiovascular Disease | DX: R00.2 Palpitations (principal) | CPT/HCPCS: 93242 ==

== ENCOUNTER 2023-01-06 13:51 | Emergency (ER) | payer MEDICARE, SELFPAY ==
--- NOTE | ~2023-01-06 | US_ITS ---
EXAMINATION: US VENOUS ULTRASOUND WITH DOPPLER LOWER EXTREMITY, LEFT CLINICAL INFORMATION: Left lower extremity pain COMPARISON: None available. TECHNIQUE: Ultrasound of the deep veins is performed from the hip to the calf with compression sonography and color and pulse Doppler assessment. Spectral analysis with color-flow imaging is performed. FINDINGS: There is normal venous compression and respiratory variation and augmented flow. The visualized common femoral vein, superficial femoral vein, profunda femoral vein, popliteal vein, and the trifurcation region shows no evidence of deep venous thrombosis. Contralateral common femoral vein was scanned and was unremarkable. There is no significant popliteal fossa cyst. If the patient's symptoms persist, followup ultrasound in 5 days 7 days might be of value to exclude proximal propagation from a non-visualized calf vein. US/US venous duplex LE IMPRESSION: No DVT demonstrated in the left lower extremity.
--- NOTE | ~2023-01-06 | XR_ITS ---
EXAMINATION: XR HIP, LEFT CLINICAL INFORMATION: Hip pain COMPARISON: None available. TECHNIQUE: Frontal view of pelvis Two views of the left hip. FINDINGS: No acute abnormality. No fracture. No focal bone lesion. Hip joints, sacroiliac joints and symphysis pubis are normal. Mild degenerative spondylosis lower lumbar spine. Large volume of stool in the colon. No abnormally dilated bowel loop. XR/XR hip LT w PEL1V IMPRESSION: Normal pelvis and left hip.
[2023-01-06 14:19] VITALS: BP 162/75; PULSE 83; RESP 19; TEMP 37.1; O2SAT 100
[2023-01-06 15:09] VITALS: BP 162/75; PULSE 83; RESP 16; TEMP 37.1; O2SAT 98; BMI 23.0
[2023-01-06 15:19] LABS: MANUAL DIFF FLAG NO
[2023-01-06 15:31] LABS: Basophils Absolute Auto 0.1 X10*3/uL (0.0-0.2); Basophils Percent Auto 0.7 % (0-2); Eosinophils Absolute Auto 0.1 X10*3/uL (0.0-0.4); Eosinophils Percent Auto 0.7 % (0-4); Hematocrit 39.8 % (37.0-47.0); Hemoglobin 12.8 g/dl (12.0-16.0); Imm Gran Abs Auto 0.08 X10*3/uL (0.00-0.03); Imm Gran Pct Auto 0.7 % (0.0-0.4); Lymphocytes Percent Auto 8.8 % (20-40); Mean Corpuscular HGB Conc 32.2 g/dl (31.0-35.0); Mean Corpuscular Hemoglobin 32.2 pg (27.0-33.0); Mean Platelet Volume 10.9 fL (9.4-12.3); Monocytes Absolute Auto 1.1 X10*3/uL (0.1-1.2); Monocytes Percent Auto 9.7 % (2-11); Neutrophils Absolute Auto 8.7 x10*3/uL (2.0-8.3); Neutrophils Percent Auto 79.4 % (45-73); Platelet Count 260 X10*3/uL (160-400); Red Blood Count 3.98 X10*6/uL (4.20-5.50); Red Cell Distribution Width 13.9 % (11.0-16.0)
[2023-01-06 15:39] LABS: Alanine Aminotransferase 19 U/L (0-31); Albumin Level 3.9 g/dL (3.5-5.0); Alkaline Phosphatase 78 U/L (39-117); Anion Gap 13 (12-20); Aspartate Amino Transferase 24 U/L (5-31); Bilirubin Total 0.5 mg/dL (0.0-1.0); Blood Urea Nitrogen 19 mg/dL (9-16); Calcium 10.9 mg/dL (8.4-10.2); Carbon Dioxide 35 mmol/L (22-29); Chloride 97 mmol/L (96-108); Creatinine Clr Calc Pharmacy 51.7; Estimated Glomerular Filt Rate > 60; Glucose Random 118 mg/dL (60-115); Lipase 26 U/L (8-78); Magnesium 2.6 mg/dL (1.6-2.6); Potassium 3.5 mmol/L (3.3-5.1); Sodium 141 mmol/L (135-145); Total Protein 7.2 g/dL (6.5-8.0)
--- NOTE | 2023-01-06 16:24 | PC.NURSE ---
pt ambulates to bathroom with strong steady gait using no devices
--- NOTE | 2023-01-06 16:31 | ED.EXTPRO ---
HPI - Extremity Problem General Chief complaint: Extremity Injury, Lower Stated complaint: diff ambulating, L side pain Time Seen by Provider: 01/06/23 16:06 Source: patient Mode of arrival: ambulatory Limitations: no limitations History of Present Illness HPI Narrative: Patient is a 77-year-old female who presents emergency department for evaluation of atraumatic left lower extremity pain. Onset of pain was approximately 4-5 days ago. Located primarily to the left anterior hip and radiating down through the thigh. It is described as aching in nature, unrelieved by topical BenGay, she states ?I do not believe in pain medications?, so she has not taken any OTC medications for this pain. She additionally reports having left lower back pain which is chronic in nature. She denies any numbness or tingling, no saddle anesthesia, no swelling or erythema of the lower extremities. She reports a history of DVT, she is on warfarin, with goal INR 1.5-2 by her account. Reports last INR was obtained 4 days ago at [facility] which was 1.7. Currently she reports ongoing shortness of breath and difficulty breathing due to her cardiac history, she is being followed by Cardiology, she denies any worsening of these symptoms as of lately, and she is wearing O2 via nasal cannula at baseline. Related Data Home Medications Medication Instructions Recorded Confirmed levothyroxine 25 mcg tablet 50 mcg PO SUSA@0600 05/25/22 12/29/22 (Synthroid) levothyroxine 25 mcg tablet 25 mcg PO MOTUWETHFR@0600 06/14/22 12/29/22 (Synthroid) CPAP (CPAP Machine/Device) 06/30/22 12/29/22 Oxygen Home Use 06/30/22 12/29/22 nebulizers 06/30/22 12/29/22 warfarin 1 mg tablet (Jantoven) mg PO 06/30/22 12/29/22 epinephrine 0.3 mg/0.3 mL IM 07/14/22 12/29/22 injection, auto-injector rosuvastatin 10 mg tablet 20 mg PO .COMPLEX 07/28/22 12/29/22 diazepam 5 mg tablet 5 mg PO BID Anxiety and Sleep 11/21/22 12/29/22 levocetirizine 5 mg tablet 5 mg PO DAILY 11/21/22 12/29/22 metoprolol succinate 25 mg 25 mg PO BID 11/21/22 12/29/22 tablet,extended release 24 hr prednisone 5 mg tablet 5 mg PO Q OTHER DAY 01/02/23 Previous Rx's Medication Instructions Recorded trazodone 50 mg tablet 100 mg PO BEDTIME #180 tabs 06/24/22 montelukast 10 mg tablet 10 mg PO DAILY #90 tabs 06/27/22 lidocaine 5 % topical patch 1 patch topical DAILY 30 days #30 07/20/22 (Lidoderm) ea Advair HFA 230 mcg-21 2 puff inhalation BID 30 days #12 09/08/22 mcg/actuation aerosol inhaler grams (fluticasone propion-salmeterol) meclizine 25 mg tablet 25 mg PO TID PRN dizziness 14 days 09/12/22 #42 tabs albuterol sulfate 2.5 mg/3 mL 2.5 mg (3 mL) inhalation Q6H PRN 09/21/22 (0.083 %) solution for nebulization shortness of breath or wheezing 30 days #180 mL chlorhexidine gluconate 0.12 % 15 ml buccal BID 14 days #420 mL 12/09/22 mouthwash tramadol 50 mg tablet 50 mg PO Q8-12H PRN pain #20 tabs 12/13/22 furosemide 40 mg tablet 40 mg PO BID 90 days #180 tabs 12/30/22 codeine 10 mg-guaifenesin 100 mg/5 10 ml PO Q6H PRN cough 10 days 01/02/23 mL oral liquid #300 mL fluticasone propionate 50 2 spray intranasal DAILY 30 days 01/02/23 mcg/actuation nasal #15.8 mL spray,suspension Allergies Allergy/AdvReac Type Severity Reaction Status Date / Time avocado [AVOCADO] Allergy Mild ITCHY Verified 01/02/23 11:15 THROAT, RASH azithromycin [AZITHROMYCIN] Allergy Mild ITCHY Verified 01/02/23 11:15 THROAT, RASH barium iodide [BARIUM IODIDE] Allergy Mild ITCHY Verified 01/02/23 11:15 THROAT, RASH barium sulfate Allergy Mild Itch Verified 01/02/23 11:15 bee pollen [BEE STINGS] Allergy Mild ITCHY Verified 01/02/23 11:15 THROAT, RASH ciprofloxacin [From CIPRO] Allergy Mild ITCHY Verified 01/02/23 11:15 THROAT, RASH clarithromycin [From BIAXIN] Allergy Mild ITCHY Verified 01/02/23 11:15 THROAT, RASH diatrizoate meglumine Allergy Mild ITCHY Verified 01/02/23 11:15 [From GASTROGRAFIN] THROAT, RASH diatrizoate sodium Allergy Mild ITCHY Verified 01/02/23 11:15 [From GASTROGRAFIN] THROAT, RASH diclofenac [From VOLTAREN] Allergy Mild ITCHY Verified 01/02/23 11:15 THROAT, RASH erythromycin base Allergy Mild ITCHY Verified 01/02/23 11:15 [ERYTHROMYCIN BASE] THROAT, RASH gentamicin [GENTAMICIN] Allergy Mild ITCHY Verified 01/02/23 11:15 THROAT, RASH Iodinated Contrast Media Allergy Mild ITCHY Verified 01/02/23 11:15 [IVP DYE] THROAT, RASH levofloxacin [From LEVAQUIN] Allergy Mild ITCHY Verified 01/02/23 11:15 THROAT, RASH metronidazole [From FLAGYL] Allergy Mild ITCHY Verified 01/02/23 11:15 THROAT, RASH moxifloxacin [From AVELOX] Allergy Mild ITCHY Verified 01/02/23 11:15 THROAT, RASH Penicillins [PENICILLINS] Allergy Mild ITCHY Verified 01/02/23 11:15 THROAT, RASH shrimp [SHRIMP] Allergy Mild ITCHY Verified 01/02/23 11:15 THROAT, RASH Sulfa (Sulfonamide Allergy Mild ITCHY Verified 01/02/23 11:15 Antibiotics) THROAT, [SULFA (SULFONAMIDE RASH ANTIBIOTICS)] vancomycin [VANCOMYCIN] Allergy Mild ITCHY Verified 01/02/23 11:15 THROAT, RASH Review of Systems Review of Systems: Pertinent findings as noted in HPI Yes all other systems are reviewed and are negative PMFSH Past Medical History Attestation statement: The following information was validated with the patient. Source: old records reviewed Medical History (HFpEF) heart failure with preserved ejection fraction Allergic bronchitis CLARA positive Anti-phospholipid antibody syndrome Anxiety Arterial insufficiency of lower extremity ASD (atrial septal defect) Chronic anticoagulation Chronic respiratory failure Complex regional pain syndrome i of right lower limb Compression fracture of body of thoracic vertebra COPD (chronic obstructive pulmonary disease) Diverticulitis Dyspnea Factor 5 Leiden mutation, heterozygous GERD (gastroesophageal reflux disease) Hemoptysis History of COVID-19 History of non-ST elevation myocardial infarction (NSTEMI) Hyperlipidemia Hypertension Hypogammaglobulinemia Hypothyroidism Hypoxia Insomnia Lung cancer KANDY treated with BiPAP Pericardial effusion Pleural effusion Pleuritic chest pain Pneumonitis Post herpetic neuralgia PTSD (post-traumatic stress disorder) Pulmonary emboli Pulmonary hypertension Pulmonary nodules Radiation fibrosis of lung Subarachnoid bleed Tracheobronchitis Surgical History History of cardiac cath History of colonoscopy History of hysterectomy History of lung surgery History of tonsillectomy S/P mitral valve clip implantation Family History Family History Sister No problems noted. Mother Cardiovascular disease Daughter Tachycardia Other KANDY (obstructive sleep apnea) Social History Social History Household Members: None Housing: House Do you presently have visiting nurse or other home services: Yes Alcohol intake: former Patient Tobacco Use Status: Never used Tobacco Smoked in Last 30 Days: No Second Hand Smoke Exposure: No Use of substances other than those prescribed or required for medical reasons: No Advance Directives: Yes Advance Directives on File: Yes Advance Directives Date on File: 06/15/22 service: No Current occupational status: retired Physical Exam Vital Signs: Vital Signs: Last Vital Signs Temp 98.4 F 01/06/23 18:21 Pulse 79 01/06/23 18:21 Resp 16 01/06/23 18:21 BP 110/57 L 01/06/23 18:21 Pulse Ox 99 01/06/23 18:21 O2 Del Method Nasal Cannula 01/06/23 18:21 O2 Flow Rate 2 01/06/23 18:21 Oxygen Flow Rate 2 01/06/23 15:09 BMI result Body Mass Index 23.0 Appearance: Alert.?Oriented to person, place and time. No acute distress.?Normal affect. Eyes: Pupils equal, round and reactive to light.? ENT: Pharynx normal.?? Neck: Normal inspection.? Neck supple.?? CVS: Heart sounds normal. Normal heart rate and rhythm.? Pulses normal.?? Respiratory: No respiratory distress.? Lung sounds clear to auscultation bilaterally?? Abdomen: Soft and non-tender. Normoactive bowel sounds. Skin: Skin warm and dry.? Normal skin color.? Extremities: No lower extremity edema.? No calf ttp. 2+ DP/PT pulse bilaterally. Tenderness upon palpation along the left lateral hip and anterior thigh. Tenderness over the paraspinal muscles of the left lower back. Neuro: Moves all extremities spontaneously. Sensation intact bilaterally. CN II-XII intact. No focal neuro deficits. Ambulates with slow antalgic gait. Course Reevaluation(s) Reevaluation #1: CBC reveals no acute abnormality a very mild leukocytosis at 11.0 which appears consistent with her baseline, at this time do not suspect infectious etiology. CMP is overall unremarkable. INR 1.8. Urinalysis without evidence of infection. Venous ultrasound without evidence of DVT. XR of the left hip/pelvis reveals no acute fracture dislocation, there is mild spondylosis of the lumbar spine and stool within the colon. I reviewed these findings with patient. Suspect pain at this time to be most consistent with lumbar radiculopathy versus muscular in nature, she declines any medications. Advised application of Lidoderm patches which she already has at home, in addition to consistent work with physical therapy. Continued bowel regimen and high-fiber diet. Outpatient follow-up with primary care provider. Reviewed worrisome signs and symptoms that warrant re-evaluation emergency department. All questions answered. Stable for discharge. Time: 18:41 Medical Decision Making Medical Decision Making MDM Narrative: Patient is a 77-year-old female with past medical history of an STEMI, long-term anticoagulation on warfarin, lung cancer, pulmonary hypertension, CAD, takotsubo cardiomyopathy, diastolic CHF, mitral valve regurgitation, SVT, subarachnoid bleed, arterial insufficiency presenting to emergency department for evaluation of atraumatic left lower extremity pain as noted in HPI. At the time examination she is overall well-appearing, she is nontoxic and afebrile. She is speaking clear full sentences, no respiratory distress, wearing O2 via nasal cannula at baseline. Physical examination the left lower extremity is overall benign aside from tenderness upon palpation, she has full range of motion to the left hip knee and ankle. Extremities neurovascularly intact distally, at this time not consistent with acute ischemic limb. There are no rashes or lesions. Although patient is on long-term anticoagulation with warfarin, given her recent INR will obtain venous ultrasound to exclude DVT, in addition to XR of the left hip and pelvis to evaluate for degenerative changes, I suspect fracture or dislocation to be unlikely based on history and physical examination. Patient was offered pain medication while in the emergency department however she declines. Differential Diagnosis Differential Diagnoses: The differential diagnosis associated with the presentation includes (Fracture, dislocation, arthritis, gout, DVT, acute ischemic limb, neuropathy, lumbar radiculopathy, cellulitis, zoster, tendinitis) Lab Data MDM Lab Attestation statement: I reviewed the patient's lab results. 01/06/23 15:13 01/06/23 15:13 Labs: Lab Results 01/06/23 01/06/23 01/06/23 Range/Units 15:13 15:13 15:13 WBC 11.0 H (4.8-10.8) X10*3/uL RBC 3.98 L (4.20-5.50) X10*6/uL Hgb 12.8 (12.0-16.0) g/dl Hct 39.8 (37.0-47.0) % MCV 100.0 H (80.0-98.0) fL MCH 32.2 (27.0-33.0) pg MCHC 32.2 (31.0-35.0) g/dl RDW 13.9 (11.0-16.0) % Plt Count 260 (160-400) X10*3/uL MPV 10.9 (9.4-12.3) fL Immature Gran % (Auto) 0.7 H (0.0-0.4) % Neut % (Auto) 79.4 H (45-73) % Lymph % (Auto) 8.8 L (20-40) % [place] % (Auto) 9.7 (2-11) % Eos % (Auto) 0.7 (0-4) % Baso % (Auto) 0.7 (0-2) % Lymph # (Auto) 1.0 L (1.2-4.9) X10*3/uL [place] # (Auto) 1.1 (0.1-1.2) X10*3/uL Eos # (Auto) 0.1 (0.0-0.4) X10*3/uL Baso # (Auto) 0.1 (0.0-0.2) X10*3/uL Abs Immat Gran (auto) 0.08 H (0.00-0.03) X10*3/uL Absolute Neuts (auto) 8.7 H (2.0-8.3) x10*3/uL Absolute Nucleated RBC 0.000 (0.0-0.012) X10*3/uL Nucleated RBC % (auto) 0.0 (0.0-0.2) /100WBC PT 21.6 H (10.0-13.1) SEC INR 1.8 H (0.9-1.1) Sodium 141 (135-145) mmol/L Potassium 3.5 (3.3-5.1) mmol/L Chloride 97 (96-108) mmol/L Carbon Dioxide 35 H (22-29) mmol/L Anion Gap 13 (12-20) BUN 19 H (9-16) mg/dL Creatinine 0.73 (0.5-1.4) mg/dL Estim Creat Clear Calc 51.7 Estimated GFR > 60 Random Glucose 118 H (60-115) mg/dL Calcium 10.9 H (8.4-10.2) mg/dL Magnesium 2.6 (1.6-2.6) mg/dL Total Bilirubin 0.5 (0.0-1.0) mg/dL AST 24 (5-31) U/L ALT 19 (0-31) U/L Alkaline Phosphatase 78 (39-117) U/L Total Protein 7.2 (6.5-8.0) g/dL Albumin 3.9 (3.5-5.0) g/dL Lipase 26 (8-78) U/L Urine Color Urine Appearance Urine pH (5.0-9.0) Ur Specific [place] (1.005-1.025) Urine Protein (Neg-Trace) mg/dL Urine Glucose (UA) (Negative) mg/dL Urine Ketones (Negative) mg/dL Urine Blood (Negative) Urine Nitrite (Negative) Ur Leukocyte Esterase (Negative) 01/06/23 Range/Units 17:04 WBC (4.8-10.8) X10*3/uL RBC (4.20-5.50) X10*6/uL Hgb (12.0-16.0) g/dl Hct (37.0-47.0) % MCV (80.0-98.0) fL MCH (27.0-33.0) pg MCHC (31.0-35.0) g/dl RDW (11.0-16.0) % Plt Count (160-400) X10*3/uL MPV (9.4-12.3) fL Immature Gran % (Auto) (0.0-0.4) % Neut % (Auto) (45-73) % Lymph % (Auto) (20-40) % [place] % (Auto) (2-11) % Eos % (Auto) (0-4) % Baso % (Auto) (0-2) % Lymph # (Auto) (1.2-4.9) X10*3/uL [place] # (Auto) (0.1-1.2) X10*3/uL Eos # (Auto) (0.0-0.4) X10*3/uL Baso # (Auto) (0.0-0.2) X10*3/uL Abs Immat Gran (auto) (0.00-0.03) X10*3/uL Absolute Neuts (auto) (2.0-8.3) x10*3/uL Absolute Nucleated RBC (0.0-0.012) X10*3/uL Nucleated RBC % (auto) (0.0-0.2) /100WBC PT (10.0-13.1) SEC INR (0.9-1.1) Sodium (135-145) mmol/L Potassium (3.3-5.1) mmol/L Chloride (96-108) mmol/L Carbon Dioxide (22-29) mmol/L Anion Gap (12-20) BUN (9-16) mg/dL Creatinine (0.5-1.4) mg/dL Estim Creat Clear Calc Estimated GFR Random Glucose (60-115) mg/dL Calcium (8.4-10.2) mg/dL Magnesium (1.6-2.6) mg/dL Total Bilirubin (0.0-1.0) mg/dL AST (5-31) U/L ALT (0-31) U/L Alkaline Phosphatase (39-117) U/L Total Protein (6.5-8.0) g/dL Albumin (3.5-5.0) g/dL Lipase (8-78) U/L Urine Color Yellow Urine Appearance Clear Urine pH 7.0 (5.0-9.0) Ur Specific [place] <= 1.005 (1.005-1.025) Urine Protein Negative (Neg-Trace) mg/dL Urine Glucose (UA) Negative (Negative) mg/dL Urine Ketones Negative (Negative) mg/dL Urine Blood Negative (Negative) Urine Nitrite Negative (Negative) Ur Leukocyte Esterase Negative (Negative) Independent Interpretation I performed an independent interpretation of an: Plain X-Ray (I have personally interpreted XR imaging of the left hip/pelvis and agree with radiologist impression, no acute fracture dislocation) and Ultrasound Radiology Impression Discussion of test interpretation with radiology: I have reviewed the radiologist's reading. Radiologist Impression: US/US venous duplex LE LT IMPRESSION: No DVT demonstrated in the left lower extremity. XR/XR hip LT w PEL1V IMPRESSION: Normal pelvis and left hip. Discharge Plan Discharge Clinical Impression: Left lumbar radiculopathy, Hip pain, Constipation Patient Disposition: Home, Self-Care Instructions: Constipation (ED), Lumbar Radiculopathy (ED), Hip Pain (ED) Additional Instructions: As we discussed, the ultrasound does not show any blood clot in your left leg this is very reassuring. The x-ray did not show any arthritis to your left hip, there is however surrounding mood obtained is of your lumbar spine as you are already aware of, in addition to constipation. Please continue taking your constipation medications and high fiber diet. As we discussed the pain is most likely muscular verses your pain. Continue with physical therapy, apply Lidoderm patches to the areas of pain. Follow-up with your primary care provider. You may return back to emergency department any new or worsening symptoms or concerns. Prescriptions: No Action trazodone 50 mg tablet 100 mg PO BEDTIME Qty: 180 3RF montelukast 10 mg tablet 10 mg PO DAILY Qty: 90 3RF meclizine 25 mg tablet 25 mg PO TID PRN (Reason: dizziness) 14 Days Qty: 42 0RF albuterol sulfate 2.5 mg /3 mL (0.083 %) solution for nebulization 2.5 mg inhalation Q6H PRN (Reason: shortness of breath or wheezing) 30 Days Qty: 180 11RF levothyroxine [Synthroid] 25 mcg tablet 50 mcg PO SUSA@0600 levothyroxine [Synthroid] 25 mcg tablet 25 mcg PO MOTUWETHFR@0600 tramadol 50 mg tablet 50 mg PO Q8-12H PRN (Reason: pain) Qty: 20 0RF diazepam 5 mg tablet 5 mg PO BID lidocaine [Lidoderm] 5 % adhesive patch,medicated 1 patch topical DAILY 30 Days Qty: 30 4RF Rx Instructions: leave on most painful area for up to 12 hrs warfarin [Jantoven] 1 mg tablet PO (DME) nebulizers Misc See Rx Instructions .Route Rx Instructions: As directed (DME) CPAP Machine/Device Device See Rx Instructions .Route Rx Instructions: As directed (DME) Oxygen Home Use Kit See Rx Instructions .Route Rx Instructions: As directed rosuvastatin 10 mg tablet 20 mg PO .COMPLEX Rx Instructions: 20 mg orally three times a week; Advair HFA 230-21 mcg/actuation HFA aerosol inhaler 2 puff inhalation BID 30 Days Qty: 12 12RF epinephrine 0.3 mg/0.3 mL auto-injector IM prednisone 5 mg tablet 5 mg PO Q OTHER DAY chlorhexidine gluconate 0.12 % mouthwash 15 ml buccal BID 14 Days Qty: 420 1RF metoprolol succinate 25 mg tablet extended release 24 hr 25 mg PO BID levocetirizine 5 mg tablet 5 mg PO DAILY codeine-guaifenesin 10-100 mg/5 mL liquid 10 ml PO Q6H PRN (Reason: cough) 10 Days Qty: 300 0RF fluticasone propionate 50 mcg/actuation spray,suspension 2 spray intranasal DAILY 30 Days Qty: 15.8 11RF furosemide 40 mg tablet 40 mg PO BID 90 Days Qty: 180 2RF Referrals: Physician,Unknown J [Primary Care Provider] - Interventions: ED Discharge Assessment Last Done: 01/06/23 19:19 Discharge Date/Time: 01/06/23 19:19
[2023-01-06 17:03] LABS: INTERNATIONAL NORM RATIO 1.8 (0.9-1.1); Prothrombin Time 21.6 SEC (10.0-13.1)
[2023-01-06 17:07] VITALS: BP 137/66; PULSE 82; RESP 16; TEMP 36.9; O2SAT 99
[2023-01-06 17:15] LABS: Appearance Urine Clear; Color Urine Yellow; Glucose Urine UA Negative (Negative); Leukocyte Esterase Urine Negative (Negative); Nitrite Urine Negative (Negative); Specific Gravity - Urine <= 1.005 (1.005-1.025); Urine Blood Negative (Negative); Urine Ketones Negative (Negative); Urine Protein Negative (Neg-Trace)
--- NOTE | 2023-01-06 18:12 | PC.NURSE ---
Pt requested something to drink, juice given, pt head of bed elevated
[2023-01-06 18:13] VITALS: BP 125/62; PULSE 92; O2SAT 99
[2023-01-06 18:21] VITALS: BP 110/57; PULSE 79; RESP 16; TEMP 36.9; O2SAT 99
== END 2023-01-06 19:19 | disposition home or self-care (01) ==
PROVIDERS: Nurse Practitioner Family; Physician Assistant; Emergency Provider Student in an Organized Health Care Education/Training Program
DX: M54.16 Radiculopathy, lumbar region (principal); M79.605 Pain in left leg; K59.00 Constipation, unspecified; I10 Essential (primary) hypertension; E78.5 Hyperlipidemia, unspecified; D68.51 Activated protein C resistance; G89.4 Chronic pain syndrome; J96.10 Chronic respiratory failure, unspecified whether with hypoxia or hypercapnia; Z79.01 Long term (current) use of anticoagulants; Z79.02 Long term (current) use of antithrombotics/antiplatelets; Z79.899 Other long term (current) drug therapy; Z99.89 Dependence on other enabling machines and devices
CPT/HCPCS: 36415; 73502; 80053; 81003; 83690; 83735; 85025; 85610; 93971; 99284

== ENCOUNTER → 2023-01-11 11:46 | Outpatient (BNVA) | payer MEDICARE, SELFPAY | PROVIDERS: PCP Internal Medicine; Visit Provider Internal Medicine Cardiovascular Disease | DX: I27.20 Pulmonary hypertension, unspecified (principal); I50.30 Unspecified diastolic (congestive) heart failure; R00.2 Palpitations; Z98.890 Other specified postprocedural states; Z95.818 Presence of other cardiac implants and grafts | CPT/HCPCS: 93005; 99212 ==

== ENCOUNTER 2023-01-18 | Outpatient (REF) | payer MEDICARE, SELFPAY | END 2023-01-18 00:01 | disposition home or self-care (01) | LOC: CF | PROVIDERS: Visit Provider Nurse Practitioner Family | DX: J90 Pleural effusion, not elsewhere classified (principal); R05.9 Cough, unspecified; C34.90 Malignant neoplasm of unspecified part of unspecified bronchus or lung; I27.20 Pulmonary hypertension, unspecified; F41.9 Anxiety disorder, unspecified | CPT/HCPCS: 99212 ==

== ENCOUNTER 2023-01-18 13:08 | Outpatient (AMB) | payer MEDICARE, SELFPAY ==
[2023-01-18 13:14] VITALS: BP 128/64; PULSE 82; O2SAT 97; BMI 23.8
--- NOTE | 2023-01-18 13:14 | MHC.OFFVIS ---
Intake Vital Signs 01/18/23 13:14 Height 5 ft 3 in Weight 134 lb 7.712 oz BMI 23.8 BP 128/64 Blood Pressure Location Rt brachial Position Sitting Pulse 82 Pulse Source Pulse Oximeter Pulse Oximetry (%) 97 Oxygen Delivery Method Nasal Cannula Oxygen Flow Rate 2 Intake Visit Reasons: Cough productive Intake Note: Patient here today persistent cough that is non productive. O2 sat at rest without O2 was 96%. Soaker Helper Required: No Ornamental Metalwork Designer: Ornamental Metalwork Designer offered & declined Accompanied by: Self / Same As Patient Allergies avocado [AVOCADO] Allergy (Mild, Verified 01/18/23 13:22) ITCHY THROAT, RASH azithromycin [AZITHROMYCIN] Allergy (Mild, Verified 01/18/23 13:22) ITCHY THROAT, RASH barium iodide [BARIUM IODIDE] Allergy (Mild, Verified 01/18/23 13:22) ITCHY THROAT, RASH barium sulfate Allergy (Mild, Verified 01/18/23 13:22) Itch bee pollen [BEE STINGS] Allergy (Mild, Verified 01/18/23 13:22) ITCHY THROAT, RASH ciprofloxacin [From CIPRO] Allergy (Mild, Verified 01/18/23 13:22) ITCHY THROAT, RASH clarithromycin [From BIAXIN] Allergy (Mild, Verified 01/18/23 13:22) ITCHY THROAT, RASH diatrizoate meglumine [From GASTROGRAFIN] Allergy (Mild, Verified 01/18/23 13:22) ITCHY THROAT, RASH diatrizoate sodium [From GASTROGRAFIN] Allergy (Mild, Verified 01/18/23 13:22) ITCHY THROAT, RASH diclofenac [From VOLTAREN] Allergy (Mild, Verified 01/18/23 13:22) ITCHY THROAT, RASH erythromycin base [ERYTHROMYCIN BASE] Allergy (Mild, Verified 01/18/23 13:22) ITCHY THROAT, RASH gentamicin [GENTAMICIN] Allergy (Mild, Verified 01/18/23 13:22) ITCHY THROAT, RASH Iodinated Contrast Media [IVP DYE] Allergy (Mild, Verified 01/18/23 13:22) ITCHY THROAT, RASH levofloxacin [From LEVAQUIN] Allergy (Mild, Verified 01/18/23 13:22) ITCHY THROAT, RASH metronidazole [From FLAGYL] Allergy (Mild, Verified 01/18/23 13:22) ITCHY THROAT, RASH moxifloxacin [From AVELOX] Allergy (Mild, Verified 01/18/23 13:22) ITCHY THROAT, RASH Penicillins [PENICILLINS] Allergy (Mild, Verified 01/18/23 13:22) ITCHY THROAT, RASH shrimp [SHRIMP] Allergy (Mild, Verified 01/18/23 13:22) ITCHY THROAT, RASH Sulfa (Sulfonamide Antibiotics) [SULFA (SULFONAMIDE ANTIBIOTICS)] Allergy (Mild, Verified 01/18/23 13:22) ITCHY THROAT, RASH vancomycin [VANCOMYCIN] Allergy (Mild, Verified 01/18/23 13:22) ITCHY THROAT, RASH Medication List - Last Reconciled 01/18/23 by Lisa Guerrero LPN Advair HFA 230-21 mcg/actuation (fluticasone propion-salmeterol) 2 puffs inhalation BID 30 days NS albuterol sulfate 2.5 mg (3 mL) inhalation Q6H PRN 30 days chlorhexidine gluconate 0.12% 15 mL buccal BID 14 days codeine-guaifenesin 10-100 mg/5 mL 10 mL PO Q6H PRN 10 days CPAP (CPAP Machine/Device) As directed diazepam 5 mg PO BID epinephrine IM fluticasone propionate 50 mcg/actuation 2 sprays intranasal DAILY 30 days furosemide Taek 2 tablets in the morning and one tablet in afternoon orally; levocetirizine 5 mg PO DAILY levothyroxine (Synthroid) 50 mcg PO SUSA@0600 levothyroxine (Synthroid) 25 mcg PO MOTUWETHFR@0600 lidocaine 5% (Lidoderm) 1 patch topical DAILY 30 days meclizine 25 mg PO TID PRN 14 days metoprolol succinate ER 50 mg (2 x 25 mg) PO BID montelukast 10 mg PO DAILY nebulizers As directed Oxygen Home Use As directed prednisone 5 mg PO Q OTHER DAY rosuvastatin 20 mg orally three times a week; tramadol 50 mg PO Q8-12H PRN trazodone 100 mg (2 x 50 mg) PO BEDTIME warfarin (Jantoven) mg PO HPI Cough productive HPI Details Jovana is a 77 year old female followed for COPD, KANDY on BiPAP, moderate to severe pulmonary HTN (RHC performed), prior pulmonary emboli on chronic anticoagulation (goal 1.5-2, due to platelet dysfunction), antiphospholipid syndrome,? mitral regurgitation status post MitraClip, lung CA s/p chemo,radiation and YANIQUE lobectomy.?She reports an ongoing intermittent productive cough with tenacious clear to white sputum that has been present for the past few months with intermittent wheezing and dyspnea on exertion at baseline. She is currently using 2L oxygen. Recently she was seen by cardiology, who ordered a 72 hour holter monitor due to episodes of tachycardia and palpitations. She has not had a follow up to review findings. She did express concern with findings on 12/29/22 CXR revealing LLL pleural effusion, which we reviewed multiple prior CXRs, with similiar findings. She has been on lasix 40 mg BID with minimal improvement in symptoms. Today cardiology instructed to increase her lasix to 80 mg QAM and 40 mg QPM but she is reluctant to do so. She noted to have substernal chest pain this morning that lasted for 30 minute to an hour without any other associated symptoms. EKG performed. She also reports some difficulty with social support and feels her sessions with her current therapy are not very productive. [facility] Medical History (Updated 01/21/23 @ 12:39 by Michelle Nino NP) (HFpEF) heart failure with preserved ejection fraction Allergic bronchitis CLARA positive Anti-phospholipid antibody syndrome Anxiety Arterial insufficiency of lower extremity ASD (atrial septal defect) Chronic anticoagulation Chronic respiratory failure Complex regional pain syndrome i of right lower limb Compression fracture of body of thoracic vertebra COPD (chronic obstructive pulmonary disease) Diverticulitis Dyspnea Factor 5 Leiden mutation, heterozygous GERD (gastroesophageal reflux disease) Hemoptysis History of COVID-19 History of non-ST elevation myocardial infarction (NSTEMI) Hyperlipidemia Hypertension Hypogammaglobulinemia Hypothyroidism Hypoxia Insomnia Lung cancer KANDY treated with BiPAP Pericardial effusion Pleural effusion Pleuritic chest pain Pneumonitis Post herpetic neuralgia PTSD (post-traumatic stress disorder) Pulmonary emboli Pulmonary hypertension Pulmonary nodules Radiation fibrosis of lung Subarachnoid bleed Tracheobronchitis Surgical History History of cardiac cath History of colonoscopy History of hysterectomy History of lung surgery History of tonsillectomy S/P mitral valve clip implantation Family History Sister No problems noted. Mother Cardiovascular disease Daughter Tachycardia Other KANDY (obstructive sleep apnea) Social History Household Members: None Housing: House Do you presently have visiting nurse or other home services: Yes Alcohol intake: former Patient Tobacco Use Status: Never used Tobacco Second Hand Smoke Exposure: No Advance Directives Date on File: 06/15/22 service: No Current occupational status: retired Review of Systems Const Denies chills, Denies fever(s), Reports lethargy and Reports weakness ENT Reports Normal hearing present Card Reports chest pain, Denies chest pain with activity, Reports leg edema, Denies radiating jaw, neck or arm pain, Denies palpitations, Reports dyspnea and Reports dyspnea on exertion Resp Reports cough, Denies hemoptysis, Denies excessive phlegm production, Denies pain on inspiration, Reports dyspnea, Reports dyspnea on exertion and Reports wheezing Musc Details: reproducible with twisting motions Neuro Reports Normal hearing present and Reports weakness Endo Denies palpitations Aller/Immun Reports wheezing Physical Exam Vital Signs: Last Vital Signs Pulse 82 01/18/23 13:14 BP 128/64 01/18/23 13:14 Pulse Ox 97 01/18/23 13:14 Oxygen Delivery Method Nasal Cannula 01/18/23 13:14 Oxygen Flow Rate 2 01/18/23 13:14 BMI result Body Mass Index 23.8 Const General: cooperative, comfortable, no acute distress, well developed and alert Orientation/consciousness: patient oriented x3 Limitations: no limitations HEENT Head: Yes normal to inspection, Yes normocephalic and Yes atraumatic Ears: hearing grossly normal bilaterally and external ears normal Eyes General: appearance normal, both eyes and all related structures Eyelids: Yes eyelids normal Sclerae: sclerae normal EOM: EOMs intact bilaterally Neck Neck: Yes normal visual inspection and Yes no lymphadenopathy Lymphatic: no lymphadenopathy noted Chest Chest palpation & inspection: normal inspection of the chest Resp Effort & Inspection: normal respiratory effort, able to speak in complete sentences, no audible wheezes, no cough, no stridor, not tachypneic, no tripod positioning and no use of accessory muscles Auscultation: no rhonchi, no wheezes and diminished lung sounds on the left in the lower lung moreno Cardio Jugular venous distension: no JVD Rate: regular rate Rhythm: regular rhythm Skin Other: warm, dry. multiple areas of ecchymosis on bilateral arms Neuro General: patient oriented x3 Cranial nerves: Yes Normal hearing present Cognition (Neuro): normal cognition Gait exam (Neuro): Normal gait present Extrem General: Yes normal to inspection, Yes no clubbing, cyanosis or edema and Yes pedal edema (1+ pitting edema R>L) Psych Appearance: grossly normal and well kempt Speech and movement: Normal speech and movement present and Clear speech present Affect: normal affect Attitude: cooperative Thought process: Normal thought process present Thought content: Normal thought content present Insight: Good insight present (Psych) Judgement: Good judgement present (Psych) Assessment & Plan Assessment & Plan (1) Pleural effusion: Code(s): J90 - Pleural effusion, not elsewhere classified (2) Cough: Code(s): R05.9 - Cough, unspecified (3) Lung cancer: Comment: (NSCLC - Adenocarcinoma Stae IIIA 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 Will send for repeat CXR as patient concerned with findings of LLL pleural effusion and with intermittent productive cough. We briefly discussed a course of antibiotics but patient declined. Encouraged patient to consider recommendations from cardiology in regards to increasing her lasix regimen. Given her reported substernal chest pain, EKG performed. Reviewed with Dr. Tellez and no significant changes. Patient aware if she develops chest pain again to seek emergent care. Patient expressed difficulties with support regarding her extensive medical history. We discussed a referral to another therapist which she was accepting of, will send this referral. Will follow up with Dr. Kelly for her regularly scheduled appointment in February. She is aware if she needs to be seen sooner to call. Orders: Orders XR chest 2V 01/19/23 J90 - Pleural effusion, not elsewhere classified Referrals Psychiatry Referral F41.9 - Anxiety disorder, unspecified, Z78.9 - Other specified health status Medications: New omeprazole 40 mg PO DAILY 30 caps 3RF omeprazole 40 mg PO DAILY 90 caps 1RF Coding Level of Care Code Est Pt Level 4 (73024) Diagnoses Pleural effusion J90 Cough R05.9 Lung cancer C34.90 Pulmonary hypertension I27.20 Anxiety F41.9
== END 2023-01-18 14:33 | disposition home or self-care (01) ==
PROVIDERS: PCP Internal Medicine; Visit Provider Nurse Practitioner Family
DX: J90 Pleural effusion, not elsewhere classified (principal); R05.9 Cough, unspecified; C34.90 Malignant neoplasm of unspecified part of unspecified bronchus or lung; I27.20 Pulmonary hypertension, unspecified; F41.9 Anxiety disorder, unspecified
CPT/HCPCS: 99214

== ENCOUNTER 2023-01-19 14:42 | Outpatient (REF) | payer MEDICARE, SELFPAY ==
--- NOTE | ~2023-01-19 | XR_ITS ---
EXAMINATION: XR CHEST CLINICAL INFORMATION: Pleural effusion. COMPARISON: Chest radiograph 12/29/[address] scans. TECHNIQUE: 2 views of the chest were obtained. FINDINGS: Heart size is borderline. No evidence of CHF. A left pleural effusion is again seen, unchanged from prior, along with left basilar atelectasis. A mechanical device/clip/closure device is seen overlying the heart, unchanged from prior. The right lung is clear. XR/XR chest 2V IMPRESSION: Unchanged small left pleural effusion and left basilar atelectasis.
== END 2023-01-19 14:43 | disposition home or self-care (01) ==
LOC: HO.XRAY 14:42
PROVIDERS: PCP Internal Medicine; Visit Provider Nurse Practitioner Family
DX: J90 Pleural effusion, not elsewhere classified (principal)
CPT/HCPCS: 71046

== ENCOUNTER 2023-01-27 11:00 | Outpatient (REF) | payer MEDICARE, SELFPAY ==
[2023-01-27 15:36] LABS: Anion Gap 14 (12-20); Blood Urea Nitrogen 21 mg/dL (9-16); Calcium 10.7 mg/dL (8.4-10.2); Carbon Dioxide 36 mmol/L (22-29); Chloride 94 mmol/L (96-108); Estimated Glomerular Filt Rate > 60; Glucose Random 112 mg/dL (60-115); Sodium 141 mmol/L (135-145)
== END 2023-01-27 11:01 | disposition home or self-care (01) ==
LOC: HO.LAB 11:00
PROVIDERS: Absent Provider Internal Medicine; PCP Internal Medicine; Visit Provider Internal Medicine Cardiovascular Disease
DX: I25.2 Old myocardial infarction (principal); J90 Pleural effusion, not elsewhere classified; R00.2 Palpitations; R05.9 Cough, unspecified
CPT/HCPCS: 36415; 80048

== ENCOUNTER 2023-02-09 09:31 | Outpatient (REF) | payer MEDICARE, SELFPAY ==
[2023-02-09 11:40] LABS: Anion Gap 16 (12-20); Blood Urea Nitrogen 19 mg/dL (9-16); Calcium 10.5 mg/dL (8.4-10.2); Carbon Dioxide 30 mmol/L (22-29); Chloride 98 mmol/L (96-108); Estimated Glomerular Filt Rate > 60; Glucose Random 88 mg/dL (60-115); Potassium 3.3 mmol/L (3.3-5.1); Sodium 141 mmol/L (135-145)
== END 2023-02-09 09:32 | disposition home or self-care (01) ==
LOC: HO.LAB 09:31
PROVIDERS: Internal Medicine Cardiovascular Disease; PCP Internal Medicine; Visit Provider Hospitalist
DX: J05.0 Acute obstructive laryngitis [croup] (principal); I27.20 Pulmonary hypertension, unspecified; R91.8 Other nonspecific abnormal finding of lung field; J96.10 Chronic respiratory failure, unspecified whether with hypoxia or hypercapnia; J70.1 Chronic and other pulmonary manifestations due to radiation; G47.33 Obstructive sleep apnea (adult) (pediatric); E87.6 Hypokalemia; Z20.822 Contact with and (suspected) exposure to COVID-19
CPT/HCPCS: 0241U; 36415; 80048; 99212

== ENCOUNTER 2023-02-09 09:31 | Outpatient (AMB) | payer MEDICARE, SELFPAY ==
--- NOTE | 2023-02-09 09:37 | MHC.OFFVIS ---
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 Allergies avocado [AVOCADO] Allergy (Mild, Verified 02/09/23 09:41) ITCHY THROAT, RASH azithromycin [AZITHROMYCIN] Allergy (Mild, Verified 02/09/23 09:41) ITCHY THROAT, RASH barium iodide [BARIUM IODIDE] Allergy (Mild, Verified 02/09/23 09:41) ITCHY THROAT, RASH barium sulfate Allergy (Mild, Verified 02/09/23 09:41) Itch bee pollen [BEE STINGS] Allergy (Mild, Verified 02/09/23 09:41) ITCHY THROAT, RASH ciprofloxacin [From CIPRO] Allergy (Mild, Verified 02/09/23 09:41) ITCHY THROAT, RASH clarithromycin [From BIAXIN] Allergy (Mild, Verified 02/09/23 09:41) ITCHY THROAT, RASH diatrizoate meglumine [From GASTROGRAFIN] Allergy (Mild, Verified 02/09/23 09:41) ITCHY THROAT, RASH diatrizoate sodium [From GASTROGRAFIN] Allergy (Mild, Verified 02/09/23 09:41) ITCHY THROAT, RASH diclofenac [From VOLTAREN] Allergy (Mild, Verified 02/09/23 09:41) ITCHY THROAT, RASH erythromycin base [ERYTHROMYCIN BASE] Allergy (Mild, Verified 02/09/23 09:41) ITCHY THROAT, RASH gentamicin [GENTAMICIN] Allergy (Mild, Verified 02/09/23 09:41) ITCHY THROAT, RASH Iodinated Contrast Media [IVP DYE] Allergy (Mild, Verified 02/09/23 09:41) ITCHY THROAT, RASH levofloxacin [From LEVAQUIN] Allergy (Mild, Verified 02/09/23 09:41) ITCHY THROAT, RASH metronidazole [From FLAGYL] Allergy (Mild, Verified 02/09/23 09:41) ITCHY THROAT, RASH moxifloxacin [From AVELOX] Allergy (Mild, Verified 02/09/23 09:41) ITCHY THROAT, RASH Penicillins [PENICILLINS] Allergy (Mild, Verified 02/09/23 09:41) ITCHY THROAT, RASH shrimp [SHRIMP] Allergy (Mild, Verified 02/09/23 09:41) ITCHY THROAT, RASH Sulfa (Sulfonamide Antibiotics) [SULFA (SULFONAMIDE ANTIBIOTICS)] Allergy (Mild, Verified 02/09/23 09:41) ITCHY THROAT, RASH vancomycin [VANCOMYCIN] Allergy (Mild, Verified 02/09/23 09:41) ITCHY THROAT, RASH HPI HPI Comments History of Present Illness Details The patient is a 77 y/o woman with a complicated history which includes: COPD, KANDY, pulmonary HTN, history pulmonary emboli on chronic anticoagulation, lung CA Stage IIIA s/o neoadjuvant chemoradiation and Left upper lobe lobectomy. She did have a CT scan today that I personally reviewed. Has not been personally read by the radiologist. Based on my reading she has some pulmonary nodules some that are new 4 mm in the right major fissure area. Other nodules are stable. Other post operative and pulmonary fibrotic changes stable. The patient should get a CT scan in 6 months. Also to note, she did not tolerate the Incruse nor budesonide. Will consider Daliresp. She was admitted to [facility] with diverticulitis. She was placed on IV antibiotics but she left against medical advice because she did not like the antibiotic options. In the meantime she was having some issues with coughing up some blood. She is also concerned because on her visit to [facility] she did have a CT scan of the chest and she was told that she had significant scarring of her lungs in addition to lung volume loss. I have not looked at the CT scan back in reassured her that she has had this radiation fibrosis for long time and volume loss due to the scarring was present before. We did review her perfusion scan demonstrating no defects to suggest any blood clots. Interestingly in the quantitative study the patient did have 81% of the blood flow going to her right lung and 18% going to the left. This is likely due to her previous surgery and also radiation changes. 07/14/2022 the patient is here for pulmonary follow-up visit. She was approved for the sildenafil and she did start a few weeks ago. Appears to be tolerating it okay. She does complaint of dyspnea on exertion. She has been using her oxygen more. She has a monitor her weight. She continues on the torsemide. We did talk about the importance of monitoring closely her weight and taking additional diuretic if necessary. She has been concerned about the shortness of breath and hypoxia at nighttime. She stopped using her BiPAP because her oxygen was low. I did reach out to her [employer] in order to get her a adapter to use her oxygen with the BiPAP at 2 L. after she is set up with the oxygen will plan to do an overnight oximetry to make sure that she is getting enough. In the meantime regarding her pulmonary hypertension. She likely has a component of pulmonary veno-occlusive disease because of her episodes of pulmonary edema and diffuse alveolar hemorrhage. I did recommend she seek a pulmonary hypertension clinic. She has already been to [place] and also at [place] she would like to go somewhere where is not as far. Therefore she recommended [facility]. I made a referral at this time. she continues on the 10 mg of prednisone. The patient does have adrenal insufficiency and also has the antiphospholipid syndrome therefore she can continue it for now. Probably can decrease down to the lowest most effective dose when she is clinically better. She continues with respiratory therapy. She has been complaining of a cough. The patient continues to be very anxious and nervous. She does have a psychiatric evaluation coming up which I believe and will be helpful. Her family is also looking for ways for her to be at ease specially well living alone. 07/20/2022 the patient is here for a pulmonary follow-up visit. She continues to have progressive dyspnea on exertion. Moderately worse. She is having to use her oxygen all the time. She seems to be desaturating very quickly with minimal activity. Usually she can be without the oxygen most of the time. She also has noted that she has gained about 2 lb in the last few days. She continues with diuresis as prescribed. Unfortunately, she has not been using her BiPAP. She does use her oxygen. she did get the adapter for her BiPAP in order to around the oxygen. But, she did not know how to install it. She did bring it in I did teach her how to install it and did started for her. We also took for 6 minutes walk test. The patient did require 2 L continues. She has a portable conserving device in therefore she can not 9 that at 3 L pulse make sure that a pulse ox above 90%. She is okay at rest to be on room air. The patient did undergo a chest x-ray after the visit. I did reviewed. It appears that she is demonstrating some cephalization and some degree of pulmonary vascular congestion as well as worsening bilateral pleural effusions. This is all consistent with cardiogenic edema. I do believe that she does have a component of pulmonary veno-occlusive disease making it very difficult to treat her pulmonary hypertension. Again, she had gone to few pulmonary hypertension clinics in the past. But her condition was not as severe. I did recommend to send her back to [place] but the patient does not want to travel as far. Therefore, as per her request we referred her to [facility]. 09/08/2022 the patient is here for a Hospital follow-up visit. Patient had been admitted to [facility] after developing flash pulmonary edema and acute on chronic respiratory failure. On repeat echocardiogram appeared that she had severe mitral regurgitation. Likely contributing to her symptoms. Therefore the patient did require a mitral clip that was done successfully improving her symptoms. Subsequently to that she had a repeat echocardiogram demonstrating moderate pulmonary hypertension. The patient does have baseline pulmonary hypertension and had been started on sildenafil. However, then she had worsening symptoms likely the precipitating the mitral valve issue. Now the patient is to follow-up with pulmonary hypertension specialist and that to have a repeat cardiac catheterization to assess the degree of pulmonary hypertension and also to assess the degree of pulmonary veno-occlusive disease. Since the patient had the mitral clip she has not required any oxygen. She continued on the Lasix but her weight is been a lot better. Major complaint is she has been developing left-sided abdominal discomfort and cramping. She is passing a lot of gas and she is concerned about her symptoms. The patient be following up with her primary care doctor tomorrow. In meantime I did recommend that she consider laxatives to try to move her bowels. She also can have and abdominal chest x-ray to assess any other pathology. She also complains right groin pain which she had a catheterization for the MitraClip and she will be following up with her interventional cardiologists for that. We did go over all her medications and her inhalers. We also did go for brief walking oximetry in the patient did good but she did desaturate down to 91% going up 1 flight of stairs therefore based on her significant dyspnea she should continue to use the oxygen with activity specially with exercise when she is able to do so. 09/30/2022 the patient has a telehealth visit today. She has been sick. Has a worsening croupy cough. With chest congestion. Moderate severity. Yellowish phlegm. Denies any hemoptysis. The patient had increased her prednisone to daily. In addition to that appears that she has been slightly gaining weight. She is aware that if she gains couple lb in 24 hours or 3 lb in 48 hours she has to take additional diuresis. She continues use the BiPAP. She continues use the oxygen with activity. She does also have a nebulizer that she can use to help her clear her secretions. She has multiple allergies. Will have her start doxycycline for her worsening cough. She is actively coughing while on the phone and seems to be more congested than usual. 10/20/2022 the patient is here for pulmonary follow-up visit. She has multiple complaints. First she is very anxious with the departure of her daughter who moved to [place]. She is wondering about travel. Currently she is doing better from a respiratory status. Patient had a brief walking oximetry today and a 6 minute walk test last week both demonstrating no need for oxygen at this time. The patient is to using the oxygen with the BiPAP at nighttime. She understands that she can arrange that with she has lived in the [email or web address] now in order for her to have the oxygen concentrated to be set to that [facility] address. In addition to this she has been complaining of increasing palpitations and increased heart rate along with shortness of breath. She did call Cardiology and they did recommend increasing her Lasix to daily. This has done better job controlling her weight her symptoms did improve. Patient is also complaining of productive cough with white phlegm. Explained to the patient that she is going to have a component of chronic bronchitis. In regards of her pulmonary hypertension she has an appointment with specialist from [place] in the coming weeks. 12/08/2022 the patient is here for a pulmonary follow-up visit. She has multiple complaints. She still complaining of left-sided chest discomfort along worsening shortness of breath and tachycardia. Therefore she did undergo a chest x-ray and V/Q scan without any evidence of any recurrent blood clots. She continues on her Coumadin with good effect. She is trying to keep herself within the therapeutic range. When we ordered the V/Q scan she had been subtherapeutic. She continues on the prednisone 5 mg daily. Now she looks like she is going to need a tooth extraction. Therefore when I try to decrease that to 5 mg every other day. The patient can also try chlorhexidine mouthwash to try to minimize the need for antibiotics prior to the extraction. She may need clindamycin afterwards as per her dentist. In regards of the chest discomfort it appears to be reproducible appears to be more musculoskeletal. She is going to continue with massage therapy. She is not taking any pain medication because she is concerned about interaction or adverse effects. She is still concerned about her ongoing shortness of breath and tachycardia. We did review her echocardiogram after her mitral clip. Explained to her that she still had evidence of mild mitral regurg as well as now new mitral stenosis which is typical after the clip in addition to that moderate elevations in the pulmonary pressures. She did restart cardiac rehab which is reassuring. I do believe that she will benefit from teaching regarding breathing techniques to try to minimize hyperinflation and air trapping which have been to her when she starts hyperventilating therefore causing worsening dynamic inspiratory capacity. We did review again her x-ray demonstrating no acute disease. We also reviewed her last CT scan demonstrating no evidence of any concerning findings. 01/02/2023 the patient is here for pulmonary follow-up visit. Patient again has multiple complaints. She has been having hard time with breathing and also with back pain. She has had multiple evaluations in the ER approximately 4 times in the last month or so. Finally she had x-rays of her back demonstrating a compression fracture of T6 which appears to be relatively new and this is what is causing her back discomfort. The patient has been reluctant to undergo any interventions such as vertebroplasty or kyphoplasty. Therefore she is going to go ahead and have physical therapy for now and pain control. She does have a hard time taking a deep breath. Explained to her that this is part due to the vertebroplasty. In addition to that the patient has having issues with shortness of breath and tachycardia. From a respiratory status the patient seems to be doing well on the current therapy. She did have an echocardiogram doubt demonstrating a new IgG ric atrial septal defect which is from the mitral clip although was not mention during the last echo. This appears to have a [id number] shunt without dilated the right atria and elevated pulmonary pressures. The patient did have her diuretics increased and she seems to be breathing a little better. She is using her oxygen more regularly. She will have to follow up with Cardiology. In the meantime she does complaint of a cough with whitish clear sticky mucus. She also has like a lump in her throat. Moderate severity. On her examination she does have significant nasal congestion and postnasal drip some likely all related to rhinosinusitis. The patient is not using any nasal sprays. She is using allergy medication. She is using oxygen. The patient is interested in getting a portable oxygen concentrator. She is going to look into it and we can not see about providing her 1 in order for her to be able to travel to see her daughter. 02/09/2023 the patient is here for sick visit. The patient started developing worsening cough yesterday. Appeared to be more croupy cough and she could not stop coughing. She was talking to her daughter on the phone was very concerned and told her to call the on-call doctor. I did call her back. And we made an appointment to come in today. Ultimately she did take a cough still and she took something to drink and somewhat improved to cough. She denies any worsening shortness of breath. She has been using her oxygen. She has also been using the diuretics. Overall doing okay. Denies any fevers or chills. She has been exposed to sick contacts. Will go ahead and do a swab for COVID flu and RSV at this time. The patient continues to be on a small dose of prednisone. Explained to her that this is likely a viral respiratory illness resulting in tracheitis in croup. [facility] Medical History (Updated 02/09/23 @ 10:16 by Henry Kelly MD) (HFpEF) heart failure with preserved ejection fraction Allergic bronchitis CLARA positive Anti-phospholipid antibody syndrome Anxiety Arterial insufficiency of lower extremity ASD (atrial septal defect) Chronic anticoagulation Chronic respiratory failure Complex regional pain syndrome i of right lower limb Compression fracture of body of thoracic vertebra COPD (chronic obstructive pulmonary disease) Diverticulitis Dyspnea Factor 5 Leiden mutation, heterozygous GERD (gastroesophageal reflux disease) Hemoptysis History of COVID-19 History of non-ST elevation myocardial infarction (NSTEMI) Hyperlipidemia Hypertension Hypogammaglobulinemia Hypothyroidism Hypoxia Insomnia Lung cancer KANDY treated with BiPAP Pericardial effusion Pleural effusion Pleuritic chest pain Pneumonitis Post herpetic neuralgia PTSD (post-traumatic stress disorder) Pulmonary emboli Pulmonary hypertension Pulmonary nodules Radiation fibrosis of lung Subarachnoid bleed Tracheobronchitis Surgical History History of cardiac cath History of colonoscopy History of hysterectomy History of lung surgery History of tonsillectomy S/P mitral valve clip implantation Family History Sister No problems noted. Mother Cardiovascular disease Daughter Tachycardia Other KANDY (obstructive sleep apnea) Social History Household Members: None Housing: House Do you presently have visiting nurse or other home services: Yes Alcohol intake: former Patient Tobacco Use Status: Never used Tobacco Second Hand Smoke Exposure: No Advance Directives Date on File: 06/15/22 service: No Current occupational status: retired Review of Systems Const Denies weakness Eyes Denies itchy eyes ENT Denies dizziness and Reports nasal congestion Card Reports chest pain, Denies chest pain with activity, Denies syncope, Denies rapid heart rate, Denies pedal edema, Denies edema, Denies leg edema, Denies lightheadedness, Denies palpitations, Denies dyspnea, Reports dyspnea on exertion and Denies orthopnea Resp Denies chest congestion, Reports cough, Denies dyspnea and Reports dyspnea on exertion GI Reports bloating, Denies hematochezia, Denies change in stool character, Reports constipation and Reports GI cramping Reports no additional complaints Musc Denies abnormal gait, Reports back pain, Reports myalgias, Denies muscle weakness, Denies numbness, Denies radiating pain into limb and Denies tingling Skin/Breast Denies rash Neuro Denies abnormal gait, Denies dizziness, Denies syncope, Reports memory loss, Denies numbness, Denies tingling and Denies weakness Psych Reports memory loss Endo Denies palpitations Aller/Immun Denies urticaria and Denies itchy eyes Physical Exam Vital Signs: Last Vital Signs Pulse 87 02/09/23 09:38 Pulse Ox 97 02/09/23 09:38 Oxygen Delivery Method Room Air 02/09/23 09:38 BMI result Body Mass Index 23.4 Last Vital Signs Temp 97.7 F 06/20/22 08:00 Pulse 90 06/20/22 08:00 Resp 16 06/20/22 08:00 BP 137/60 06/20/22 08:00 Pulse Ox 93 06/20/22 08:00 O2 Del Method 12/12/22 08:00 O2 Flow Rate 2 06/20/22 08:00 FiO2 45 06/14/22 11:07 BMI result Body Mass Index 23.0 Const General: cooperative, comfortable, alert and awake Orientation/consciousness: patient oriented x3 HEENT Head: Yes atraumatic Eyes General: appearance normal, both eyes and all related structures Neck Neck: Yes trachea midline, Yes supple and Yes no JVD Chest Chest palpation & inspection: normal inspection of the chest Resp Effort & Inspection: normal respiratory effort and Actively coughing Quality: whooping Auscultation: no rales, no rhonchi, no wheezes and diminished lung sounds Cardio Rate: regular rate Rhythm: regular rhythm Heart sounds: S1 normal heart sound present and S2 normal heart sound present GI Auscultation: normal bowel sounds Neuro General: patient oriented x3 and no focal motor deficits Extrem General: Yes no clubbing, cyanosis or edema Results Reviewed Results Reviewed: 02/09/23 09:31 SARS-CoV2/FLU/RSV Routine Laboratory Last Values Influenza Type A (PCR) NEGATIVE (Negative) 02/09/23 09:31 Influenza Type B (PCR) NEGATIVE (Negative) 02/09/23 09:31 RSV RNA Qual (PCR) NEGATIVE (Negative) 02/09/23 09:31 SARS-CoV-2 RNA (RT-PCR) NEGATIVE (Negative) 02/09/23 09:31 Assessment & Plan Assessment & Plan (1) Croup: Code(s): J05.0 - Acute obstructive laryngitis [croup] (2) Pulmonary hypertension: Comment: severe based on RHC, moderate based on recent echo Code(s): I27.20 - Pulmonary hypertension, unspecified (3) Pulmonary nodules: Code(s): R91.8 - Other nonspecific abnormal finding of lung field (4) Chronic respiratory failure: Code(s): J96.10 - Chronic respiratory failure, unspecified whether with hypoxia or hypercapnia (5) KANDY treated with BiPAP: Code(s): G47.33 - Obstructive sleep apnea (adult) (pediatric) (6) Radiation fibrosis of lung: Comment: C/B traction bronchiectasis and airway obstructions . Code(s): J70.1 - Chronic and other pulmonary manifestations due to radiation Plan start Vantin cough syrup prednisone 2.5 mg Ambien for sleep continue Advair ASHA as needed CPT with acapella valve fluticasone Oxygen 2L/pulse with activity and sleep. Will look into a POC in order to travel duiresis as tolerated continue BIPAP at night with O2 F/U 6-8 weeks Orders: Orders SARS-CoV2/FLU/RSV 02/09/23 J05.0 - Acute obstructive laryngitis [croup] Medications: New fluticasone propionate 50 mcg/actuation 2 sprays intranasal DAILY 90 days 3 ea 3RF J31.0 - Chronic rhinitis cefpodoxime must administer with a meal/food 200 mg PO BID 14 days 28 tabs 0RF Coding Level of Care Code Est Pt Level 4 (64487) Diagnoses Croup J05.0 Pulmonary hypertension I27.20 Pulmonary nodules R91.8 Chronic respiratory failure J96.10 KANDY treated with BiPAP G47.33 Radiation fibrosis of lung J70.1 Time Spent (min) 20
[2023-02-09 09:38] VITALS: PULSE 87; O2SAT 97; BMI 23.4
[2023-02-09 11:34] LABS: Influenza A PCR NEGATIVE (Negative); Influenza B PCR NEGATIVE (Negative); Resp Syncy Virus RNA Qual PCR NEGATIVE (Negative); SARS COV2 PCR INHOUSE NEGATIVE (Negative)
== END 2023-02-09 11:02 | disposition home or self-care (01) ==
PROVIDERS: PCP Internal Medicine; Visit Provider Hospitalist
DX: J05.0 Acute obstructive laryngitis [croup] (principal); I27.20 Pulmonary hypertension, unspecified; R91.8 Other nonspecific abnormal finding of lung field; J96.10 Chronic respiratory failure, unspecified whether with hypoxia or hypercapnia; G47.33 Obstructive sleep apnea (adult) (pediatric); J70.1 Chronic and other pulmonary manifestations due to radiation
CPT/HCPCS: 99214

== ENCOUNTER 2023-02-13 14:58 | Outpatient (AMB) | payer MEDICARE, SELFPAY ==
[2023-02-13 15:02] VITALS: BP 98/59; PULSE 76; O2SAT 97; BMI 23.4
--- NOTE | 2023-02-13 15:02 | A.OFFVIS_ITS ---
Intake Vital Signs 02/13/23 15:02 Height 5 ft 3 in Weight 132 lb 4.438 oz BMI 23.4 BP 98/59 L Blood Pressure Location Rt brachial Position Sitting Pulse 76 Pulse Source Pulse Oximeter Pulse Oximetry (%) 97 Oxygen Delivery Method Room Air Intake Visit Reasons: 1 mth fu Intake Note: Patient is here for a 1 month follow up, patient would like to know results of echo done in december Allergies avocado [AVOCADO] Allergy (Mild, Verified 02/13/23 15:21) ITCHY THROAT, RASH azithromycin [AZITHROMYCIN] Allergy (Mild, Verified 02/13/23 15:21) ITCHY THROAT, RASH barium iodide [BARIUM IODIDE] Allergy (Mild, Verified 02/13/23 15:21) ITCHY THROAT, RASH barium sulfate Allergy (Mild, Verified 02/13/23 15:21) Itch bee pollen [BEE STINGS] Allergy (Mild, Verified 02/13/23 15:21) ITCHY THROAT, RASH ciprofloxacin [From CIPRO] Allergy (Mild, Verified 02/13/23 15:21) ITCHY THROAT, RASH clarithromycin [From BIAXIN] Allergy (Mild, Verified 02/13/23 15:21) ITCHY THROAT, RASH diatrizoate meglumine [From GASTROGRAFIN] Allergy (Mild, Verified 02/13/23 15:21) ITCHY THROAT, RASH diatrizoate sodium [From GASTROGRAFIN] Allergy (Mild, Verified 02/13/23 15:21) ITCHY THROAT, RASH diclofenac [From VOLTAREN] Allergy (Mild, Verified 02/13/23 15:21) ITCHY THROAT, RASH erythromycin base [ERYTHROMYCIN BASE] Allergy (Mild, Verified 02/13/23 15:21) ITCHY THROAT, RASH gentamicin [GENTAMICIN] Allergy (Mild, Verified 02/13/23 15:21) ITCHY THROAT, RASH Iodinated Contrast Media [IVP DYE] Allergy (Mild, Verified 02/13/23 15:21) ITCHY THROAT, RASH levofloxacin [From LEVAQUIN] Allergy (Mild, Verified 02/13/23 15:21) ITCHY THROAT, RASH metronidazole [From FLAGYL] Allergy (Mild, Verified 02/13/23 15:21) ITCHY THROAT, RASH moxifloxacin [From AVELOX] Allergy (Mild, Verified 02/13/23 15:21) ITCHY THROAT, RASH Penicillins [PENICILLINS] Allergy (Mild, Verified 02/13/23 15:21) ITCHY THROAT, RASH shrimp [SHRIMP] Allergy (Mild, Verified 02/13/23 15:21) ITCHY THROAT, RASH Sulfa (Sulfonamide Antibiotics) [SULFA (SULFONAMIDE ANTIBIOTICS)] Allergy (Mild, Verified 02/13/23 15:21) ITCHY THROAT, RASH vancomycin [VANCOMYCIN] Allergy (Mild, Verified 02/13/23 15:21) ITCHY THROAT, RASH Medication List - Last Reconciled 02/13/23 by Luis Eduardo Cadet MD Advair HFA 230-21 mcg/actuation (fluticasone propion-salmeterol) 2 puffs inhalation BID 30 days NS albuterol sulfate 2.5 mg (3 mL) inhalation Q6H PRN 30 days cefpodoxime 200 mg PO BID 14 days chlorhexidine gluconate 0.12% 15 mL buccal BID 14 days codeine-guaifenesin 10-100 mg/5 mL 10 mL PO Q6H PRN 10 days CPAP (CPAP Machine/Device) As directed diazepam 5 mg PO BID epinephrine IM fluticasone propionate 50 mcg/actuation 2 sprays intranasal DAILY 30 days fluticasone propionate 50 mcg/actuation 2 sprays intranasal DAILY 90 days furosemide 40 mg PO Q12H levocetirizine 5 mg PO DAILY levothyroxine (Synthroid) 50 mcg PO SUSA@0600 levothyroxine (Synthroid) 25 mcg PO MOTUWETHFR@0600 lidocaine 5% (Lidoderm) 1 patch topical DAILY 30 days meclizine 25 mg PO TID PRN 14 days metoprolol succinate ER 50 mg (2 x 25 mg) PO BID montelukast 10 mg PO DAILY nebulizers As directed omeprazole 40 mg PO DAILY Oxygen Home Use As directed potassium chloride 20 mEq PO DAILY prednisone 5 mg PO Q OTHER DAY rosuvastatin 20 mg orally three times a week; tramadol 50 mg PO Q8-12H PRN trazodone 100 mg (2 x 50 mg) PO BEDTIME warfarin (Jantoven) mg PO HPI HPI Comments History of Present Illness Details 77-year-old female complex medical issues presenting follow-up. She recently was diagnosed with severe mitral valve regurgitation was felt not to be a good surgical candidate and underwent MitraClip. She had improvement in symptoms afterwards. She has advanced lung disease due to previous lung resection as well as radiation to the lungs. She also had pulmonary embolism in the past. She has pulmonary hypertension. She is presenting now because she was becoming more short of breath and had lower extremity edema. On her own she crease her furosemide to 40 mg over the last week or so. She said her breathing did not change with that strategy. It appears early November she was in the emergency department with shortness of breath and was diagnosed with left lower lobe pneumonia. She had some sharp left-sided chest pains which were pleuritic in nature likely due to underlying pneumonia. She was given antibiotics which she has completed. She is saying that her oxygen saturations the low when she is laying down. She does not use oxygen frequently. Specifically outside her home she does not use oxygen. She has tachycardia when she is ambulating which she has noticed but does not significantly get any palpitations. She continues to get short of breath with activities. She saw a pulmonary hypertension specialist and by her description she was told that her pulmonary hypertension was mostly due to mitral regurgitation. She is following with pulmonology at [place]. 12/29/22: Was brought in for urgent follow-up. She called and was complaining of palpitations and fast heart rates as high as 120 beats per minute and was also complaining of shortness of breath. It appears she was referred for echocardiography by pulmonology and this showed that her right ventricle is [id number] dilated, right atrium was severely dilated with small pericardial effusion as before but small to moderate pleural effusion was also noted. Previous iatrogenic ASD from transseptal puncture was noted as well mitral stenosis due to mitral clip with mean gradient of 8-9 mm Hg. Previously this was 7 mm Hg. The patient was previously advised to use oxygen when she is ambulating. Apparently she was out with her friends and while walking she was not using oxygen and started feeling shortness of breath and checked her pulse and it was 120 beats per minute. She is saying when she is using oxygen she does not get similar symptoms and has not had any tachycardia while using oxygen. She has also gained few lb over the last few days. She was sent for chest x-ray which is showing left basal pleural effusion as seen on the echocardiography also. She is taking Lasix 40 mg once a day. She is on metoprolol succinate 25 mg twice a day. 01/11/23: She returns for follow-up. She had Holter monitor on her and the day she came to return it she had significant palpitations and shortness of breath while walking to the Cardiology Department. She said she was not rushing and was walking at a slow pace. She said these symptoms improved afterwards and she did not have any for the palpitations walking back to her car. She was using oxygen. She is wearing oxygen 30/01 but is saying that she feels lousy and has not felt any difference in her dyspnea or palpitations. She has been using 40 mg twice a day of Lasix. Her blood pressure control is good. Previously we did not increase her Toprol XL despite seeing some degree of mitral stenosis on her echocardiogram which is iatrogenic due to MitraClip. She has been more sedentary and is quite frail and deconditioned. She is tearful that she is unable to do any of the activities she was able to do before. 02/13/23: She returns for follow-up. She was previously on 40 mg p.o. b.i.d. Lasix. She had called our office for lower extremity edema and Lasix dose was increased to 80 mg twice a day. Subsequent to that she called or office that she is dehydrated and was advised to take 80 mg in the morning and 40 in the afternoon. She had blood workup which showed hypokalemia and she was started on potassium supplements. She continues to get fatigue and SOB. She is using oxygen when sleeping and with ambulation. Continues to get tachycardia with ambulation. [facility] Medical History (HFpEF) heart failure with preserved ejection fraction Allergic bronchitis CLARA positive Anti-phospholipid antibody syndrome Anxiety Arterial insufficiency of lower extremity ASD (atrial septal defect) Chronic anticoagulation Chronic respiratory failure Complex regional pain syndrome i of right lower limb Compression fracture of body of thoracic vertebra COPD (chronic obstructive pulmonary disease) Diverticulitis Dyspnea Factor 5 Leiden mutation, heterozygous GERD (gastroesophageal reflux disease) Hemoptysis History of COVID-19 History of non-ST elevation myocardial infarction (NSTEMI) Hyperlipidemia Hypertension Hypogammaglobulinemia Hypothyroidism Hypoxia Insomnia Lung cancer KANDY treated with BiPAP Pericardial effusion Pleural effusion Pleuritic chest pain Pneumonitis Post herpetic neuralgia PTSD (post-traumatic stress disorder) Pulmonary emboli Pulmonary hypertension Pulmonary nodules Radiation fibrosis of lung Subarachnoid bleed Tracheobronchitis Surgical History History of cardiac cath History of colonoscopy History of hysterectomy History of lung surgery History of tonsillectomy S/P mitral valve clip implantation Family History Sister No problems noted. Mother Cardiovascular disease Daughter Tachycardia Other KANDY (obstructive sleep apnea) Social History Household Members: None Housing: House Do you presently have visiting nurse or other home services: Yes Alcohol intake: former Patient Tobacco Use Status: Never used Tobacco Second Hand Smoke Exposure: No Advance Directives Date on File: 06/15/22 service: No Current occupational status: retired Review of Systems Const Denies fatigue, Denies fever(s), Denies frequent falls, Denies weight gain and Denies weight loss ENT Denies dizziness Card Denies chest pain, Denies leg edema, Denies lightheadedness, Denies dyspnea, Denies dyspnea on exertion, Denies orthopnea and Reports other (loss of consciousness) Resp Denies cough, Denies dyspnea and Denies dyspnea on exertion GI Denies hematochezia and Denies change in bowel habits Musc Denies abnormal gait, Denies muscle weakness, Denies numbness, Denies radiating pain into limb and Denies tingling Neuro Denies abnormal gait, Denies dizziness, Denies frequent falls, Denies numbness and Denies tingling Endo Denies fatigue Physical Exam Vital Signs: Last Vital Signs Pulse 76 02/13/23 15:02 BP 98/59 L 02/13/23 15:02 Pulse Ox 97 02/13/23 15:02 Oxygen Delivery Method Room Air 02/13/23 15:02 BMI result Body Mass Index 23.4 GENERAL APPEARANCE: In no distress. NECK/THYROID: no carotid bruit, no significant JVD. SKIN: no suspicious lesions, warm and dry. HEART: no murmurs, regular rate and rhythm, S1, S2 normal. LUNGS: clear to auscultation bilaterally. ABDOMEN: normal, bowel sounds present, soft, nontender, nondistended. EXTREMITIES: no clubbing, cyanosis. No significant edema. PERIPHERAL PULSES: equal. NEUROLOGIC: nonfocal, alert and oriented. Office Procedures EKG Details: Sinus rhythm 77 beats per minute, left axis deviation, right bundle-branch block, QTC 473 milliseconds. [id number], Complete Assessment & Plan Assessment & Plan (1) Hypokalemia: Code(s): E87.6 - Hypokalemia (2) Mitral valve regurgitation: Comment: (s/p mitral clip - 08/2022) Code(s): I34.0 - Nonrheumatic mitral (valve) insufficiency (3) (HFpEF) heart failure with preserved ejection fraction: Code(s): I50.30 - Unspecified diastolic (congestive) heart failure (4) Pulmonary hypertension: Comment: severe based on RHC, moderate based on recent echo Code(s): I27.20 - Pulmonary hypertension, unspecified (5) ASD (atrial septal defect): Comment: iatrogenic due to mitral clip. Appears to have a Left to right shunt with a dilated RA Code(s): Q21.10 - Atrial septal defect, unspecified Plan 77-year-old female with complex medical and cardiovascular issues. She has background of severe mitral regurgitation and she was not a surgical candidate and underwent MitraClip. She did well after that but recently has been experiencing more shortness of breath. Her shortness of breath is multifactorial as she has underlying lung disease due to previous radiation and lung resection. She follows closely with pulmonology here. She gets hypoxic when she ambulates but has been using oxygen more regularly. She continues to get some episodes of tachycardia and palpitations despite using oxygen. She is saying her breathing has not changed significantly with wearing oxygen. She has been on Lasix 40 mg p.o. b.i.d.. Her volume status looks better than before. I think we should continue with same dose of diuretics currently. For hypokalemia she is on 20 mEq KCl. c/w Toprol XL. I have explained to her that she has significant medical issues and deconditioning and fast heart rates with activity are not unusual in her case. f/u in 3 months. Thank you for allowing me to participate in the care of your patient. Please feel free to contact me if you have any questions. Coding Level of Care Code Est Pt Level 4 (15560) Diagnoses Hypokalemia E87.6 Mitral valve regurgitation I34.0 (HFpEF) heart failure with preserved ejection fraction I50.30 Pulmonary hypertension I27.20 ASD (atrial septal defect) Q21.10 CPT Codes EKG - CPT: 58788-[id number], Complete ([id number])
== END 2023-02-13 15:59 | disposition home or self-care (01) ==
PROVIDERS: PCP Internal Medicine; Referring Provider Internal Medicine; Visit Provider Internal Medicine Cardiovascular Disease
DX: E87.6 Hypokalemia (principal); I34.0 Nonrheumatic mitral (valve) insufficiency; I50.30 Unspecified diastolic (congestive) heart failure; I27.20 Pulmonary hypertension, unspecified; Q21.10 Atrial septal defect, unspecified
CPT/HCPCS: 93010; 99214

== ENCOUNTER → 2023-02-13 14:58 | Outpatient (BNVA) | payer MEDICARE, SELFPAY | PROVIDERS: PCP Internal Medicine; Referring Provider Internal Medicine; Visit Provider Internal Medicine Cardiovascular Disease | DX: I45.2 Bifascicular block (principal); I51.7 Cardiomegaly; I34.0 Nonrheumatic mitral (valve) insufficiency; I50.30 Unspecified diastolic (congestive) heart failure; I27.20 Pulmonary hypertension, unspecified; Q21.10 Atrial septal defect, unspecified; E87.6 Hypokalemia; Z99.89 Dependence on other enabling machines and devices; Z99.81 Dependence on supplemental oxygen; Z79.52 Long term (current) use of systemic steroids; Z79.899 Other long term (current) drug therapy; Z79.01 Long term (current) use of anticoagulants | CPT/HCPCS: 93005; 99212 ==

== ENCOUNTER 2023-02-23 10:31 | Outpatient (AMB) | payer MEDICARE, SELFPAY ==
--- NOTE | 2023-02-23 10:37 | A.OFFVIS_ITS ---
Intake Vital Signs 02/23/23 10:39 Height 5 ft 3 in Weight 129 lb BMI 22.8 BP 128/70 Blood Pressure Location Lt brachial Position Sitting Pulse 75 Pulse Source Pulse Oximeter Pulse Oximetry (%) 97 Oxygen Delivery Method Room Air Comment 2 Liters Oxygen([facility]) Intake Visit Reasons: Croup Surveyor'S Assistant Required: No Allergies avocado [AVOCADO] Allergy (Mild, Verified 02/23/23 10:37) ITCHY THROAT, RASH azithromycin [AZITHROMYCIN] Allergy (Mild, Verified 02/23/23 10:37) ITCHY THROAT, RASH barium iodide [BARIUM IODIDE] Allergy (Mild, Verified 02/23/23 10:37) ITCHY THROAT, RASH barium sulfate Allergy (Mild, Verified 02/23/23 10:37) Itch bee pollen [BEE STINGS] Allergy (Mild, Verified 02/23/23 10:37) ITCHY THROAT, RASH ciprofloxacin [From CIPRO] Allergy (Mild, Verified 02/23/23 10:37) ITCHY THROAT, RASH clarithromycin [From BIAXIN] Allergy (Mild, Verified 02/23/23 10:37) ITCHY THROAT, RASH diatrizoate meglumine [From GASTROGRAFIN] Allergy (Mild, Verified 02/23/23 10:37) ITCHY THROAT, RASH diatrizoate sodium [From GASTROGRAFIN] Allergy (Mild, Verified 02/23/23 10:37) ITCHY THROAT, RASH diclofenac [From VOLTAREN] Allergy (Mild, Verified 02/23/23 10:37) ITCHY THROAT, RASH erythromycin base [ERYTHROMYCIN BASE] Allergy (Mild, Verified 02/23/23 10:37) ITCHY THROAT, RASH gentamicin [GENTAMICIN] Allergy (Mild, Verified 02/23/23 10:37) ITCHY THROAT, RASH Iodinated Contrast Media [IVP DYE] Allergy (Mild, Verified 02/23/23 10:37) ITCHY THROAT, RASH levofloxacin [From LEVAQUIN] Allergy (Mild, Verified 02/23/23 10:37) ITCHY THROAT, RASH metronidazole [From FLAGYL] Allergy (Mild, Verified 02/23/23 10:37) ITCHY THROAT, RASH moxifloxacin [From AVELOX] Allergy (Mild, Verified 02/23/23 10:37) ITCHY THROAT, RASH Penicillins [PENICILLINS] Allergy (Mild, Verified 02/23/23 10:37) ITCHY THROAT, RASH shrimp [SHRIMP] Allergy (Mild, Verified 02/23/23 10:37) ITCHY THROAT, RASH Sulfa (Sulfonamide Antibiotics) [SULFA (SULFONAMIDE ANTIBIOTICS)] Allergy (Mild, Verified 02/23/23 10:37) ITCHY THROAT, RASH vancomycin [VANCOMYCIN] Allergy (Mild, Verified 02/23/23 10:37) ITCHY THROAT, RASH HPI HPI Comments History of Present Illness Details The patient is a 77 y/o woman with a complicated history which includes: COPD, KANDY, pulmonary HTN, history pulmonary emboli on chronic anticoagulation, lung CA Stage IIIA s/o neoadjuvant chemoradiation and Left upper lobe lobectomy. She did have a CT scan today that I personally reviewed. Has not been personally read by the radiologist. Based on my reading she has some pulmonary nodules some that are new 4 mm in the right major fissure area. Other nodules are stable. Other post operative and pulmonary fibrotic changes stable. The patient should get a CT scan in 6 months. Also to note, she did not tolerate the Incruse nor budesonide. Will consider Daliresp. She was admitted to [facility] with diverticulitis. She was placed on IV antibiotics but she left against medical advice because she did not like the antibiotic options. In the meantime she was having some issues with coughing up some blood. She is also concerned because on her visit to [facility] she did have a CT scan of the chest and she was told that she had significant scarring of her lungs in addition to lung volume loss. I have not looked at the CT scan back in reassured her that she has had this radiation fibrosis for long time and volume loss due to the scarring was present before. We did review her perfusion scan demonstrating no defects to suggest any blood clots. Interestingly in the quantitative study the patient did have 81% of the blood flow going to her right lung and 18% going to the left. This is likely due to her previous surgery and also radiation changes. 07/14/2022 the patient is here for pulmonary follow-up visit. She was approved for the sildenafil and she did start a few weeks ago. Appears to be tolerating it okay. She does complaint of dyspnea on exertion. She has been using her oxygen more. She has a monitor her weight. She continues on the torsemide. We did talk about the importance of monitoring closely her weight and taking additional diuretic if necessary. She has been concerned about the shortness of breath and hypoxia at nighttime. She stopped using her BiPAP because her oxygen was low. I did reach out to her [employer] in order to get her a adapter to use her oxygen with the BiPAP at 2 L. after she is set up with the oxygen will plan to do an overnight oximetry to make sure that she is getting enough. In the meantime regarding her pulmonary hypertension. She likely has a component of pulmonary veno-occlusive disease because of her episodes of pulmonary edema and diffuse alveolar hemorrhage. I did recommend she seek a pulmonary hypertension clinic. She has already been to [place] and also at [place] she would like to go somewhere where is not as far. Therefore she recommended [facility]. I made a referral at this time. she continues on the 10 mg of prednisone. The patient does have adrenal insufficiency and also has the antiphospholipid syndrome therefore she can continue it for now. Probably can decrease down to the lowest most effective dose when she is clinically better. She continues with respiratory therapy. She has been complaining of a cough. The patient continues to be very anxious and nervous. She does have a psychiatric evaluation coming up which I believe and will be helpful. Her family is also looking for ways for her to be at ease specially well living alone. 07/20/2022 the patient is here for a pulmonary follow-up visit. She continues to have progressive dyspnea on exertion. Moderately worse. She is having to use her oxygen all the time. She seems to be desaturating very quickly with minimal activity. Usually she can be without the oxygen most of the time. She also has noted that she has gained about 2 lb in the last few days. She continues with diuresis as prescribed. Unfortunately, she has not been using her BiPAP. She does use her oxygen. she did get the adapter for her BiPAP in order to around the oxygen. But, she did not know how to install it. She did bring it in I did teach her how to install it and did started for her. We also took for 6 minutes walk test. The patient did require 2 L continues. She has a portable conserving device in therefore she can not 9 that at 3 L pulse make sure that a pulse ox above 90%. She is okay at rest to be on room air. The patient did undergo a chest x-ray after the visit. I did reviewed. It appears that she is demonstrating some cephalization and some degree of pulmonary vascular congestion as well as worsening bilateral pleural effusions. This is all consistent with cardiogenic edema. I do believe that she does have a component of pulmonary veno-occlusive disease making it very difficult to treat her pulmonary hypertension. Again, she had gone to few pulmonary hypertension clinics in the past. But her condition was not as severe. I did recommend to send her back to [place] but the patient does not want to travel as far. Therefore, as per her request we referred her to [facility]. 09/08/2022 the patient is here for a Hospital follow-up visit. Patient had been admitted to [facility] after developing flash pulmonary edema and acute on chronic respiratory failure. On repeat echocardiogram appeared that she had severe mitral regurgitation. Likely contributing to her symptoms. Therefore the patient did require a mitral clip that was done successfully improving her symptoms. Subsequently to that she had a repeat echocardiogram demonstrating moderate pulmonary hypertension. The patient does have baseline pulmonary hypertension and had been started on sildenafil. However, then she had worsening symptoms likely the precipitating the mitral valve issue. Now the patient is to follow-up with pulmonary hypertension specialist and that to have a repeat cardiac catheterization to assess the degree of pulmonary hypertension and also to assess the degree of pulmonary veno-occlusive disease. Since the patient had the mitral clip she has not required any oxygen. She continued on the Lasix but her weight is been a lot better. Major complaint is she has been developing left-sided abdominal discomfort and cramping. She is passing a lot of gas and she is concerned about her symptoms. The patient be following up with her primary care doctor tomorrow. In meantime I did recommend that she consider laxatives to try to move her bowels. She also can have and abdominal chest x-ray to assess any o ther pathology. She also complains right groin pain which she had a catheterization for the MitraClip and she will be following up with her interventional cardiologists for that. We did go over all her medications and her inhalers. We also did go for brief walking oximetry in the patient did good but she did desaturate down to 91% going up 1 flight of stairs therefore based on her significant dyspnea she should continue to use the oxygen with activity specially with exercise when she is able to do so. 09/30/2022 the patient has a telehealth visit today. She has been sick. Has a worsening croupy cough. With chest congestion. Moderate severity. Yellowish phlegm. Denies any hemoptysis. The patient had increased her prednisone to daily. In addition to that appears that she has been slightly gaining weight. She is aware that if she gains couple lb in 24 hours or 3 lb in 48 hours she has to take additional diuresis. She continues use the BiPAP. She continues use the oxygen with activity. She does also have a nebulizer that she can use to help her clear her secretions. She has multiple allergies. Will have her start doxycycline for her worsening cough. She is actively coughing while on the phone and seems to be more congested than usual. 10/20/2022 the patient is here for pulmonary follow-up visit. She has multiple complaints. First she is very anxious with the departure of her daughter who moved to [place]. She is wondering about travel. Currently she is doing better from a respiratory status. Patient had a brief walking oximetry today and a 6 minute walk test last week both demonstrating no need for oxygen at this time. The patient is to using the oxygen with the BiPAP at nighttime. She understands that she can arrange that with she has lived in the [employer] now in order for her to have the oxygen concentrated to be set to that [facility] address. In addition to this she has been complaining of increasing palpitations and increased heart rate along with shortness of breath. She did call Cardiology and they did recommend increasing her Lasix to daily. This has done better job controlling her weight her symptoms did improve. Patient is also complaining of productive cough with white phlegm. Explained to the patient that she is going to have a component of chronic bronchitis. In regards of her pulmonary hypertension she has an appointment with specialist from [place] in the coming weeks. 12/08/2022 the patient is here for a pulmonary follow-up visit. She has multiple complaints. She still complaining of left-sided chest discomfort along worsening shortness of breath and tachycardia. Therefore she did undergo a chest x-ray and V/Q scan without any evidence of any recurrent blood clots. She continues on her Coumadin with good effect. She is trying to keep herself within the therapeutic range. When we ordered the V/Q scan she had been subtherapeutic. She continues on the prednisone 5 mg daily. Now she looks like she is going to need a tooth extraction. Therefore when I try to decrease that to 5 mg every other day. The patient can also try chlorhexidine mouthwash to try to minimize the need for antibiotics prior to the extraction. She may need clindamycin afterwards as per her dentist. In regards of the chest discomfort it appears to be reproducible appears to be more musculoskeletal. She is going to continue with massage therapy. She is not taking any pain medication because she is concerned about interaction or adverse effects. She is still concerned about her ongoing shortness of breath and tachycardia. We did review her echocardiogram after her mitral clip. Explained to her that she still had evidence of mild mitral regurg as well as now new mitral stenosis which is typical after the clip in addition to that moderate elevations in the pulmonary pressures. She did restart cardiac rehab which is reassuring. I do believe that she will benefit from teaching regarding breathing techniques to try to minimize hyperinflation and air trapping which have been to her when she starts hyperventilating therefore causing worsening dynamic inspiratory capacity. We did review again her x-ray demonstrating no acute disease. We also reviewed her last CT scan demonstrating no evidence of any concerning findings. 01/02/2023 the patient is here for pulmonary follow-up visit. Patient again has multiple complaints. She has been having hard time with breathing and also with back pain. She has had multiple evaluations in the ER approximately 4 times in the last month or so. Finally she had x-rays of her back demonstrating a compression fracture of T6 which appears to be relatively new and this is what is causing her back discomfort. The patient has been reluctant to undergo any interventions such as vertebroplasty or kyphoplasty. Therefore she is going to go ahead and have physical therapy for now and pain control. She does have a hard time taking a deep breath. Explained to her that this is part due to the vertebroplasty. In addition to that the patient has having issues with shortness of breath and tachycardia. From a respiratory status the patient seems to be doing well on the current therapy. She did have an echocardiogram doubt demonstrating a new IgG ric atrial septal defect which is from the mitral clip although was not mention during the last echo. This appears to have a [id number] shunt without dilated the right atria and elevated pulmonary pressures. The patient did have her diuretics increased and she seems to be breathing a little better. She is using her oxygen more regularly. She will have to follow up with Cardiology. In the meantime she does complaint of a cough with whitish clear sticky mucus. She also has like a lump in her throat. Moderate severity. On her examination she does have significant nasal congestion and postnasal drip some likely all related to rhinosinusitis. The patient is not using any nasal sprays. She is using allergy medication. She is using oxygen. The patient is interested in getting a portable oxygen concentrator. She is going to look into it and we can not see about providing her 1 in order for her to be able to travel to see her daughter. 02/09/2023 the patient is here for sick visit. The patient started developing worsening cough yesterday. Appeared to be more croupy cough and she could not stop coughing. She was talking to her daughter on the phone was very concerned and told her to call the on-call doctor. I did call her back. And we made an appointment to come in today. Ultimately she did take a cough still and she took something to drink and somewhat improved to cough. She denies any worsening shortness of breath. She has been using her oxygen. She has also been using the diuretics. Overall doing okay. Denies any fevers or chills. She has been exposed to sick contacts. Will go ahead and do a swab for COVID flu and RSV at this time. The patient continues to be on a small dose of prednisone. Explained to her that this is likely a viral respiratory illness resulting in tracheitis in croup. 02/23/2023 the patient is here for pulmonary follow-up visit. The patient continues to have ongoing symptoms of shortness of breath and heaviness. She is responding well to the current therapy. She has not had any hemoptysis. Tolerating the Coumadin. Does the question of her coming off the Coumadin because of the worsening alveolar hemorrhage. However, the patient has not had that many more episodes specially after having her cardiac procedure. Therefore I would not be concerned about continuing the Coumadin at this time. The patient is also very reluctant to stop the Coumadin and I believe that stopping the Coumadin will result in significant levels of anxiety for the patient and concerns of blood clots. The patient also will have a tooth extraction she will have Coumadin. For 3 days which is okay. She is also awaiting to follow-up with the caramel cutter machine regarding the iatrogenic atrial septal defect. The patient is having issues with like discomfort and sensitivity. I did recommend she call Pain Management regarding potential the use of compound creams to try to help alleviate some of the discomfort. Patient also is concerned about healing daytime drowsiness even after effective use of her BiPAP . I will ask for a download from the [employer] to see if he is working effectively. Also would check a venous gas to assess her CO2. I did recommend that is she still continues to have daytime drowsiness even after all the workup is completed if she continues to have persistent daytime drowsiness she can consider stimulant like new visual a good option to improve her daytime symptoms. [facility] Medical History (HFpEF) heart failure with preserved ejection fraction Allergic bronchitis CLARA positive Anti-phospholipid antibody syndrome Anxiety Arterial insufficiency of lower extremity ASD (atrial septal defect) Chronic anticoagulation Chronic respiratory failure Complex regional pain syndrome i of right lower limb Compression fracture of body of thoracic vertebra COPD (chronic obstructive pulmonary disease) Diverticulitis Dyspnea Factor 5 Leiden mutation, heterozygous GERD (gastroesophageal reflux disease) Hemoptysis History of COVID-19 History of non-ST elevation myocardial infarction (NSTEMI) Hyperlipidemia Hypertension Hypogammaglobulinemia Hypothyroidism Hypoxia Insomnia Lung cancer KANDY treated with BiPAP Pericardial effusion Pleural effusion Pleuritic chest pain Pneumonitis Post herpetic neuralgia PTSD (post-traumatic stress disorder) Pulmonary emboli Pulmonary hypertension Pulmonary nodules Radiation fibrosis of lung Subarachnoid bleed Tracheobronchitis Surgical History History of cardiac cath History of colonoscopy History of hysterectomy History of lung surgery History of tonsillectomy S/P mitral valve clip implantation Family History Sister No problems noted. Mother Cardiovascular disease Daughter Tachycardia Other KANDY (obstructive sleep apnea) Social History Household Members: None Housing: House Do you presently have visiting nurse or other home services: Yes Alcohol intake: former Patient Tobacco Use Status: Never used Tobacco Second Hand Smoke Exposure: No Advance Directives Date on File: 06/15/22 service: No Current occupational status: retired Review of Systems Const Reports daytime sleepiness, Reports fatigue and Denies weakness Eyes Denies itchy eyes ENT Denies dizziness and Reports nasal congestion Card Reports chest pain, Denies chest pain with activity, Denies syncope, Denies rapid heart rate, Denies pedal edema, Denies edema, Denies leg edema, Denies lightheadedness, Denies palpitations, Denies dyspnea, Reports dyspnea on exertion and Denies orthopnea Resp Denies chest congestion, Reports cough, Denies dyspnea and Reports dyspnea on exertion GI Reports bloating, Denies hematochezia, Denies change in stool character, Reports constipation and Reports GI cramping Reports no additional complaints Musc Denies abnormal gait, Reports back pain, Reports myalgias, Denies muscle weakness, Denies numbness, Denies radiating pain into limb and Denies tingling Skin/Breast Denies rash Neuro Denies abnormal gait, Denies dizziness, Denies syncope, Reports memory loss, Denies numbness, Denies tingling, Reports paresthesias and Denies weakness Psych Reports memory loss Endo Reports fatigue and Denies palpitations Aller/Immun Denies urticaria and Denies itchy eyes Physical Exam Vital Signs: Last Vital Signs Pulse 75 02/23/23 10:39 BP 128/70 02/23/23 10:39 Pulse Ox 97 02/23/23 10:39 Oxygen Delivery Method Room Air 02/23/23 10:39 BMI result Body Mass Index 22.8 Last Vital Signs Temp 97.7 F 06/20/22 08:00 Pulse 90 06/20/22 08:00 Resp 16 06/20/22 08:00 BP 137/60 06/20/22 08:00 Pulse Ox 93 06/20/22 08:00 O2 Del Method 06/20/22 08:00 O2 Flow Rate 2 06/20/22 08:00 FiO2 45 06/14/22 11:07 BMI result Body Mass Index 23.0 Const General: cooperative, comfortable, alert and awake Orientation/consciousness: patient oriented x3 HEENT Head: Yes atraumatic Eyes General: appearance normal, both eyes and all related structures Neck Neck: Yes trachea midline, Yes supple and Yes no JVD Chest Chest palpation & inspection: normal inspection of the chest Resp Effort & Inspection: normal respiratory effort and Actively coughing Quality: whooping Auscultation: no rales, no rhonchi, no wheezes and diminished lung sounds Cardio Rate: regular rate Rhythm: regular rhythm Heart sounds: S1 normal heart sound present and S2 normal heart sound present GI Auscultation: normal bowel sounds Skin General skin exam: purpura and scars Neuro General: patient oriented x3 and no focal motor deficits Extrem General: Yes no clubbing, cyanosis or edema Assessment & Plan Assessment & Plan (1) Pulmonary hypertension: Comment: severe based on RHC, moderate based on recent echo Code(s): I27.20 - Pulmonary hypertension, unspecified (2) Pulmonary nodules: Code(s): R91.8 - Other nonspecific abnormal finding of lung field (3) Chronic respiratory failure: Code(s): J96.10 - Chronic respiratory failure, unspecified whether with hypoxia or hypercapnia (4) KANDY treated with BiPAP: Code(s): G47.33 - Obstructive sleep apnea (adult) (pediatric) (5) Radiation fibrosis of lung: Comment: C/B traction bronchiectasis and airway obstructions . Code(s): J70.1 - Chronic and other pulmonary manifestations due to radiation Plan prednisone 2.5 mg Ambien for sleep continue Advair ASHA as needed CPT with acapella valve fluticasone Oxygen 2L/pulse with activity and sleep. Will look into a POC in order to travel duiresis as tolerated continue BIPAP at night with O2, need to review BIPAP data and venous blood gas Bloodwork today F/U 6-8 weeks Orders: Orders Basic Metabolic Panel Today J90 - Pleural effusion, not elsewhere classified, R00.2 - Palpitations, R05.9 - Cough, unspecified, R07.81 - Pleurodynia Ferritin Today J90 - Pleural effusion, not elsewhere classified, R00.2 - Palpitations, R05.9 - Cough, unspecified, R07.81 - Pleurodynia IRON PROFILE Today J90 - Pleural effusion, not elsewhere classified, R00.2 - Palpitations, R05.9 - Cough, unspecified, R07.81 - Pleurodynia Magnesium Today J90 - Pleural effusion, not elsewhere classified, R00.2 - Palpitations, R05.9 - Cough, unspecified, R07.81 - Pleurodynia TSH reflex Free T4 Today J90 - Pleural effusion, not elsewhere classified, R00.2 - Palpitations, R05.9 - Cough, unspecified, R07.81 - Pleurodynia Erythrocyte Sedimentation Rate Today J90 - Pleural effusion, not elsewhere classified, R00.2 - Palpitations, R05.9 - Cough, unspecified, R07.81 - Pleurodynia Liver Panel Today J90 - Pleural effusion, not elsewhere classified, R00.2 - Palpitations, R05.9 - Cough, unspecified, R07.81 - Pleurodynia Venous Blood Gas Today J90 - Pleural effusion, not elsewhere classified, R00.2 - Palpitations, R05.9 - Cough, unspecified, R07.81 - Pleurodynia Complete Blood Count Auto Diff Today J90 - Pleural effusion, not elsewhere classified, R00.2 - Palpitations, R05.9 - Cough, unspecified, R07.81 - Pleurodynia Coding Level of Care Code Est Pt Level 4 (11312) Diagnoses Pulmonary hypertension I27.20 Pulmonary nodules R91.8 Chronic respiratory failure J96.10 KANDY treated with BiPAP G47.33 Radiation fibrosis of lung J70.1 Time Spent (min) 20
[2023-02-23 10:39] VITALS: BP 128/70; PULSE 75; O2SAT 97; BMI 22.8
== END 2023-02-23 11:11 | disposition home or self-care (01) ==
PROVIDERS: PCP Internal Medicine; Visit Provider Hospitalist
DX: I27.20 Pulmonary hypertension, unspecified (principal); R91.8 Other nonspecific abnormal finding of lung field; J96.10 Chronic respiratory failure, unspecified whether with hypoxia or hypercapnia; G47.33 Obstructive sleep apnea (adult) (pediatric); J70.1 Chronic and other pulmonary manifestations due to radiation
CPT/HCPCS: 99214

== ENCOUNTER 2023-02-23 10:31 | Outpatient (REF) | payer MEDICARE, SELFPAY ==
[2023-02-23 11:34] LABS: MANUAL DIFF FLAG NO
[2023-02-23 11:36] LABS: Venous Blood Gas Refer to POC result
[2023-02-23 11:39] LABS: VBG pCO2 61 mmHg; VBG pH 7.38 (7.32-7.43)
[2023-02-23 11:40] LABS: VBG Base Excess 9.2 mmol/L; VBG HCO3 36 mmol/L (22-26); VBG pO2 41 mmHg
[2023-02-23 11:41] LABS: Basophils Absolute Auto 0.1 X10*3/uL (0.0-0.2); Basophils Percent Auto 0.6 % (0-2); Eosinophils Absolute Auto 0.1 X10*3/uL (0.0-0.4); Eosinophils Percent Auto 0.8 % (0-4); Hematocrit 40.6 % (37.0-47.0); Hemoglobin 13.1 g/dl (12.0-16.0); Imm Gran Abs Auto 0.08 X10*3/uL (0.00-0.03); Imm Gran Pct Auto 0.7 % (0.0-0.4); Lymphocytes Absolute Auto 0.8 X10*3/uL (1.2-4.9); Lymphocytes Percent Auto 7.8 % (20-40); Mean Corpuscular HGB Conc 32.3 g/dl (31.0-35.0); Mean Corpuscular Hemoglobin 32.2 pg (27.0-33.0); Mean Corpuscular Volume 99.8 fL (80.0-98.0); Mean Platelet Volume 10.5 fL (9.4-12.3); Monocytes Absolute Auto 1.1 X10*3/uL (0.1-1.2); Monocytes Percent Auto 10.3 % (2-11); Neutrophils Absolute Auto 8.6 x10*3/uL (2.0-8.3); Neutrophils Percent Auto 79.8 % (45-73); Platelet Count 228 X10*3/uL (160-400); Red Blood Count 4.07 X10*6/uL (4.20-5.50); Red Cell Distribution Width 13.4 % (11.0-16.0); White Blood Count 10.8 X10*3/uL (4.8-10.8)
[2023-02-23 12:12] LABS: Alanine Aminotransferase 36 U/L (0-31); Alkaline Phosphatase 79 U/L (39-117); Anion Gap 9 (12-20); Aspartate Amino Transferase 33 U/L (5-31); Bilirubin Direct 0.2 mg/dL (0.0-0.5); Bilirubin Total 0.5 mg/dL (0.0-1.0); Blood Urea Nitrogen 27 mg/dL (9-16); Calcium 10.7 mg/dL (8.4-10.2); Carbon Dioxide 35 mmol/L (22-29); Chloride 101 mmol/L (96-108); Estimated Glomerular Filt Rate > 60; Ferritin 56 ng/mL (10-250); Glucose Random 89 mg/dL (60-115); Iron 120 mcg/dL (30-160); Magnesium 2.3 mg/dL (1.6-2.6); Percent Iron Saturation 36 % (15-50); Potassium 3.6 mmol/L (3.3-5.1); Sodium 141 mmol/L (135-145); TSH reflex Free T4 2.09 uIU/mL (0.32-4.0); Total Iron Binding Capacity 329 mcg/dL (228-428); Total Protein 7.3 g/dL (6.5-8.0); Unsaturated Iron Binding 209 ug/dL
[2023-02-23 12:25] LABS: Erythrocyte Sedimentation Rate 34 MM/HR (0-20)
== END 2023-02-23 10:32 | disposition home or self-care (01) ==
LOC: HO.LAB 10:31
PROVIDERS: PCP Internal Medicine; Visit Provider Hospitalist
DX: J90 Pleural effusion, not elsewhere classified (principal); J70.1 Chronic and other pulmonary manifestations due to radiation; J96.10 Chronic respiratory failure, unspecified whether with hypoxia or hypercapnia; R91.8 Other nonspecific abnormal finding of lung field; R00.2 Palpitations; R05.9 Cough, unspecified; R07.81 Pleurodynia; I27.20 Pulmonary hypertension, unspecified; G47.33 Obstructive sleep apnea (adult) (pediatric); Z79.01 Long term (current) use of anticoagulants
CPT/HCPCS: 36415; 80048; 80076; 82728; 82803; 83540; 83735; 84443; 85025; 85652; 99212

== ENCOUNTER 2023-03-07 07:56 | Emergency (ER) | payer MEDICARE, SELFPAY ==
--- NOTE | ~2023-03-07 | XR_ITS ---
EXAMINATION: XR BILATERAL HIPS WITH AP PELVIS CLINICAL INFORMATION: Mild pain after fall COMPARISON: Left hip radiograph from 01/06/2023 TECHNIQUE: Single view of the pelvis 2 views of each hip FINDINGS: No acute visible fracture or dislocation. Mild degenerative changes of the bilateral femoral acetabular joints. Degenerative arthropathy of the lumbosacral spine. Sclerotic focus overlying the right iliac bone nonspecific though statistically representing a bone island. Joint spaces and alignment otherwise maintained. Bowel gas is unremarkable. Pelvic phleboliths are noted. XR/XR hip BI w PEL1V IMPRESSION: 1. No acute visible fracture or dislocation. 2. Mild degenerative changes of the bilateral femoral acetabular joints. 3. Degenerative arthropathy of the lumbosacral spine.
--- NOTE | ~2023-03-07 | CT_ITS ---
EXAMINATION: CT HEAD WITHOUT CONTRAST CLINICAL INFORMATION: Head pain status post fall. COMPARISON: None available. TECHNIQUE: Contiguous axial imaging was performed from the skull base to vertex without intravenous administration of contrast. Coronal and sagittal reformatted images were obtained. This CT examination was performed using dose optimization techniques as appropriate, variously including the following: *Automated exposure control *Adjustment of mA and/or kV according to patient size (this includes techniques or standardized protocols for targeted exams where dose is matched to indication/reason for exam; i.e. extremities or head) *Use of iterative reconstruction technique DLP: 560.88 mGy-cm FINDINGS: There is mild widening of the cortical sulci and associated ventriculomegaly. The lateral ventricles are symmetrical. The third and fourth ventricles are in their normal midline position. The basilar and prepontine cisterns are unremarkable. There is no acute intra or extracerebral abnormality. There is no mass effect or midline shift. Sections through the bony calvarium are unremarkable. The orbits are intact. The paranasal sinuses are clear. The mastoid air cells are clear. CT/CT head/brain wo IV con IMPRESSION: No acute intracranial pathology.
--- NOTE | ~2023-03-07 | CT_ITS ---
EXAMINATION: CT LUMBAR SPINE WITHOUT CONTRAST CLINICAL INFORMATION: Lumbar spine pain status post fall. COMPARISON: CT scan of the abdomen and pelvis dated 01/30/2020 TECHNIQUE: Multiple axial images of the lumbar spine were obtained without the administration of intravenous contrast. Coronal and sagittal reformatted images were obtained. This CT examination was performed using dose optimization techniques as appropriate, variously including the following: *Automated exposure control *Adjustment of mA and/or kV according to patient size (this includes techniques or standardized protocols for targeted exams where dose is matched to indication/reason for exam; i.e. extremities or head) *Use of iterative reconstruction technique DLP; 270.69 mGy-cm FINDINGS: Mild lumbar levoscoliosis with apex at L2. Generalized osteopenia is seen. The vertebral bodies are intact. L2-L3: Mild degenerative disc disease. Mild bilateral facet arthropathy. L3-L4: Mild degenerative disc disease with grade 1 anterolisthesis with approximately 5 mm displacement. Mild to moderate bilateral neural foraminal narrowing, right greater than left. Mild bilateral facet arthropathy. L4-L5: Moderate degenerative disc disease and mild to moderate bilateral neural foraminal narrowing. Mild bilateral facet arthropathy. L5-S1: Mild degenerative disc disease and grade 1 anterolisthesis with mild to moderate bilateral neural foraminal narrowing. Mild bilateral facet arthropathy. The spinous and transverse processes are intact. Mild bilateral sacroiliac degenerative joint changes. No significant intra-abdominal abnormality. Partially visualized mild diverticulosis in the sigmoid colon. The paravertebral soft tissues are unremarkable. CT/CT lumbar spine wo IV con IMPRESSION: Mild lumbar levoscoliosis and multilevel degenerative changes without acute abnormality.
--- NOTE | ~2023-03-07 | CT_ITS ---
EXAMINATION: CT CERVICAL SPINE WITHOUT CONTRAST CLINICAL INFORMATION: Neck pain status post fall. COMPARISON: None available. TECHNIQUE: Multiple axial images of the cervical spine were obtained without the administration of intravenous contrast. Coronal and sagittal reformatted images were obtained. This CT examination was performed using dose optimization techniques as appropriate, variously including the following: *Automated exposure control *Adjustment of mA and/or kV according to patient size (this includes techniques or standardized protocols for targeted exams where dose is matched to indication/reason for exam; i.e. extremities or head) *Use of iterative reconstruction technique DLP: 238.74 mGy-cm FINDINGS: There is generalized osteopenia. Mild degenerative disc disease is seen at C4-C5 and C5-C6. Minimal grade 1 retrolisthesis is seen at C5-C6. Moderate neural foraminal narrowing is seen on the left. The vertebral bodies are intact. The odontoid process is intact with mild articulating degenerative changes. Mild to moderate multilevel facet arthropathy is seen. The spinous and transverse processes are intact. The soft tissues are unremarkable. There is no lymphadenopathy. Mild to moderate atherosclerosis is seen in the carotid bulbs bilaterally. The thyroid gland is unremarkable. The lung apices are clear. CT/CT cervical spine wo IV con IMPRESSION: Multilevel degenerative changes without acute abnormality.
--- NOTE | 2023-03-07 07:59 | ECG_ITS ---
Test Reason : SOB Blood Pressure : / mmHG Vent. Rate : 073 BPM Atrial Rate : 073 BPM P-R Int : 154 ms QRS Dur : 136 ms QT Int : 432 ms P-R-T Axes : 043 -58 058 degrees QTc Int : 475 ms Normal sinus rhythm Right bundle branch block Left anterior fascicular block Bifascicular block Minimal voltage criteria for LVH, may be normal variant ( R in aVL ) Abnormal ECG When compared with ECG of 09-NOV-2022 14:37, Premature supraventricular complexes are no longer Present Right bundle branch block is now Present Referred By: Renee Burrell Electronically Signed By:TAMMY HENDERSON
--- NOTE | 2023-03-07 08:05 | ED.FALL ---
HPI - Fall General Chief Complaint: Fall Stated Complaint: FALL DOWN 6 STEPS LAST NOC,LEG PAIN,THIN,-CCOLL Time Seen by Provider: 03/07/23 07:59 Source: patient Mode of arrival: EMS History of Present Illness HPI Narrative: 77-year-old female with history of COPD and CHF is brought in by EMS for complaints of fall down 6 stairs last night without head strike or loss of consciousness, patient declined C-collar and was noted to ambulate well at the scene but is complaining of lower back pain as well as leg pain patient states that she fell onto her bottom and then slid down the stairs. She has recently stopped her blood thinners in preparation for a tooth extraction tomorrow but states she is not feeling well and may reschedule the tooth extraction Related Data Home Medications Medication Instructions Recorded Confirmed levothyroxine 25 mcg tablet 50 mcg PO SUSA@0600 05/25/22 02/13/23 (Synthroid) levothyroxine 25 mcg tablet 25 mcg PO MOTUWETHFR@0600 06/14/22 02/13/23 (Synthroid) CPAP (CPAP Machine/Device) 06/30/22 02/13/23 Oxygen Home Use 06/30/22 02/13/23 nebulizers 06/30/22 02/13/23 warfarin 1 mg tablet (Jantoven) mg PO 06/30/22 02/13/23 epinephrine 0.3 mg/0.3 mL IM 07/14/22 02/13/23 injection, auto-injector rosuvastatin 10 mg tablet 20 mg PO .COMPLEX 07/28/22 02/13/23 diazepam 5 mg tablet 5 mg PO BID Anxiety and Sleep 11/21/22 02/13/23 levocetirizine 5 mg tablet 5 mg PO DAILY 11/21/22 02/13/23 prednisone 5 mg tablet 5 mg PO Q OTHER DAY 01/02/23 02/13/23 Previous Rx's Medication Instructions Recorded trazodone 50 mg tablet 100 mg PO BEDTIME #180 tabs 06/24/22 montelukast 10 mg tablet 10 mg PO DAILY #90 tabs 06/27/22 lidocaine 5 % topical patch 1 patch topical DAILY 30 days #30 07/20/22 (Lidoderm) ea meclizine 25 mg tablet 25 mg PO TID PRN dizziness 14 days 09/12/22 #42 tabs albuterol sulfate 2.5 mg/3 mL 2.5 mg (3 mL) inhalation Q6H PRN 09/21/22 (0.083 %) solution for nebulization shortness of breath or wheezing 30 days #180 mL chlorhexidine gluconate 0.12 % 15 ml buccal BID 14 days #420 mL 12/09/22 mouthwash tramadol 50 mg tablet 50 mg PO Q8-12H PRN pain #20 tabs 12/13/22 codeine 10 mg-guaifenesin 100 mg/5 10 ml PO Q6H PRN cough 10 days 01/02/23 mL oral liquid #300 mL fluticasone propionate 50 2 spray intranasal DAILY 30 days 01/02/23 mcg/actuation nasal #15.8 mL spray,suspension metoprolol succinate 25 mg 50 mg PO BID #120 tabs 01/18/23 tablet,extended release 24 hr omeprazole 40 mg capsule,delayed 40 mg PO DAILY #90 caps 01/18/23 release furosemide 40 mg tablet 40 mg PO Q12H #180 tabs 01/24/23 potassium chloride 20 mEq oral 20 meq PO DAILY #50 ea 01/28/23 packet cefpodoxime 200 mg tablet 200 mg PO BID 14 days #28 tabs 02/09/23 fluticasone propionate 50 2 spray intranasal DAILY 90 days 02/09/23 mcg/actuation nasal #3 ea spray,suspension Advair HFA 230 mcg-21 2 puff inhalation BID 90 days #12 03/06/23 mcg/actuation aerosol inhaler grams (fluticasone propion-salmeterol) Allergies Allergy/AdvReac Type Severity Reaction Status Date / Time avocado [AVOCADO] Allergy Mild ITCHY Verified 02/23/23 10:37 THROAT, RASH azithromycin [AZITHROMYCIN] Allergy Mild ITCHY Verified 02/23/23 10:37 THROAT, RASH barium iodide [BARIUM IODIDE] Allergy Mild ITCHY Verified 02/23/23 10:37 THROAT, RASH barium sulfate Allergy Mild Itch Verified 02/23/23 10:37 bee pollen [BEE STINGS] Allergy Mild ITCHY Verified 02/23/23 10:37 THROAT, RASH ciprofloxacin [From CIPRO] Allergy Mild ITCHY Verified 02/23/23 10:37 THROAT, RASH clarithromycin [From BIAXIN] Allergy Mild ITCHY Verified 02/23/23 10:37 THROAT, RASH diatrizoate meglumine Allergy Mild ITCHY Verified 02/23/23 10:37 [From GASTROGRAFIN] THROAT, RASH diatrizoate sodium Allergy Mild ITCHY Verified 02/23/23 10:37 [From GASTROGRAFIN] THROAT, RASH diclofenac [From VOLTAREN] Allergy Mild ITCHY Verified 02/23/23 10:37 THROAT, RASH erythromycin base Allergy Mild ITCHY Verified 02/23/23 10:37 [ERYTHROMYCIN BASE] THROAT, RASH gentamicin [GENTAMICIN] Allergy Mild ITCHY Verified 02/23/23 10:37 THROAT, RASH Iodinated Contrast Media Allergy Mild ITCHY Verified 02/23/23 10:37 [IVP DYE] THROAT, RASH levofloxacin [From LEVAQUIN] Allergy Mild ITCHY Verified 02/23/23 10:37 THROAT, RASH metronidazole [From FLAGYL] Allergy Mild ITCHY Verified 02/23/23 10:37 THROAT, RASH moxifloxacin [From AVELOX] Allergy Mild ITCHY Verified 02/23/23 10:37 THROAT, RASH Penicillins [PENICILLINS] Allergy Mild ITCHY Verified 02/23/23 10:37 THROAT, RASH shrimp [SHRIMP] Allergy Mild ITCHY Verified 02/23/23 10:37 THROAT, RASH Sulfa (Sulfonamide Allergy Mild ITCHY Verified 02/23/23 10:37 Antibiotics) THROAT, [SULFA (SULFONAMIDE RASH ANTIBIOTICS)] vancomycin [VANCOMYCIN] Allergy Mild ITCHY Verified 02/23/23 10:37 THROAT, RASH Review of Systems Review of Systems: Pertinent positives and negatives as stated in HPI [facility] Past Medical History Source: nursing notes reviewed Medical History (HFpEF) heart failure with preserved ejection fraction Allergic bronchitis CLARA positive Anti-phospholipid antibody syndrome Anxiety Arterial insufficiency of lower extremity ASD (atrial septal defect) Chronic anticoagulation Chronic respiratory failure Complex regional pain syndrome i of right lower limb Compression fracture of body of thoracic vertebra COPD (chronic obstructive pulmonary disease) Diverticulitis Dyspnea Factor 5 Leiden mutation, heterozygous GERD (gastroesophageal reflux disease) Hemoptysis History of COVID-19 History of non-ST elevation myocardial infarction (NSTEMI) Hyperlipidemia Hypertension Hypogammaglobulinemia Hypothyroidism Hypoxia Insomnia Lung cancer KANDY treated with BiPAP Pericardial effusion Pleural effusion Pleuritic chest pain Pneumonitis Post herpetic neuralgia PTSD (post-traumatic stress disorder) Pulmonary emboli Pulmonary hypertension Pulmonary nodules Radiation fibrosis of lung Subarachnoid bleed Tracheobronchitis Surgical History History of cardiac cath History of colonoscopy History of hysterectomy History of lung surgery History of tonsillectomy S/P mitral valve clip implantation Family History Family History Sister No problems noted. Mother Cardiovascular disease Daughter Tachycardia Other KANDY (obstructive sleep apnea) Social History Social History Household Members: None Housing: House Do you presently have visiting nurse or other home services: Yes Alcohol intake: former Patient Tobacco Use Status: Never used Tobacco Second Hand Smoke Exposure: No Advance Directives: Yes Advance Directives on File: Yes Advance Directives Date on File: 06/15/22 service: No Current occupational status: retired Physical Exam Vital Signs: Vital Signs: Last Vital Signs Temp 98.5 F 03/07/23 08:10 Pulse 74 03/07/23 08:10 Resp 16 03/07/23 08:10 BP 144/64 H 03/07/23 08:10 Pulse Ox 98 03/07/23 08:10 O2 Del Method Nasal Cannula 03/07/23 08:10 Oxygen Flow Rate 2 03/07/23 08:10 BMI result Body Mass Index 22.8 VITAL SIGNS: Reviewed. GENERAL: Chronically ill, well nourished, in no acute distress. HEAD: Normocephalic/atraumatic EYES: PERRLA, EOMI EARS: Ext canals without abnormality NOSE: Nares patent bilateral OROPHARYNX: no oral lesions noted, posterior pharynx clear NECK: Supple, no adenopathy, no midline cervical spine tenderness or step-offs LUNGS: Normal breath sounds. No adventitious sounds or accessory muscle use. SpO2<98> on home oxygen; CHEST WALL: No chest wall pain to palpation, no crepitus, no deform CARDIOVASCULAR: Regular rate and rhythm without noted murmurs ABDOMEN: Soft, non-tender, non-distended with bowel sounds. PELVIS: Stable, mild bilateral tenderness BACK: No obvious step-offs and no midline vertebral tenderness. MUSCULOSKELETAL: No tenderness, deformities, or effusions noted on gross inspection. EXTREMITIES: No cyanosis, clubbing or edema, mild ecchymosis noted to bilateral knees that is chronic in nature as per patient. SKIN: Inspection of the skin reveals no rashes, ulcerations, jaundice, pallor, or petechiae. NEUROLOGIC: Alert and oriented x 3. Strength and sensation to light touch were grossly intact x 4. Medications Administered Discontinued Medications Generic Name Dose Route Start Last Admin Trade Name Kobi PRN Reason Stop Dose Admin Acetaminophen 975 mg 03/07/23 09:45 03/07/23 09:53 Acetaminophen 325 Mg Tablet PO 03/07/23 09:46 Not Given ONCE ONE Medical Decision Making Medical Decision Making MDM Narrative: This is a 77-year-old female with history and clinical presentation of being on chronic anticoagulation and sustained a mild fall onto her bottom last night without head strike or loss of consciousness, patient does have complaints of back/hip/leg pain but the leg pain is noted to extend from the hip area. DDX: Vertebral fracture, hip fracture I reviewed all investigations and hematologic indices are chronically stable without leukocytosis and a chronically stable left shift, no anemia or thrombocytopenia. Patient is coagulation studies demonstrated an INR-1.4 consistent with known chronic anticoagulation use. VBG without evidence of hypercapnia or acidosis. Chemistry indices are chronically stable without electrolyte or liver enzyme derangements, troponin is chronically detectable but not significantly elevated. There is no SAMARA. Hip/pelvis x-rays not significant for fracture or dislocation and otherwise my interpretation is in agreement with radiology's impression. CT scan of the C-spine and head are negative for evidence of intracranial hemorrhage and no evidence of cervical spine fracture or subluxation otherwise my interpretation is in agreement with radiology's impression. Urinalysis is negative for UTI or hematuria. On re-evaluation patient continues to have some mild musculoskeletal pain but has somewhat improved after the Tylenol lidocaine patch. She has remained hemodynamically stable, no hypoxia or tachypnea noted and is stable for discharge to home with instructions follow-up with primary care doctor. Differential Diagnosis Differential Diagnoses: The differential diagnosis associated with the presentation includes Please see the discussion above Admission/Observation Consideration of admission/observation: Escalation of care including admission/observation considered Please see the discussion above Lab Data [facility] Lab Attestation statement: I reviewed the patient's lab results. Please see the discussion above 03/07/23 08:33 03/07/23 08:33 Labs: Lab Results 08/03/07/23 03/07/23 Range/Units 08:33 08:33 08:33 WBC 10.2 (4.8-10.8) X10*3/uL RBC 4.32 (4.20-5.50) X10*6/uL Hgb 13.8 (12.0-16.0) g/dl Hct 42.3 (37.0-47.0) % MCV 97.9 (80.0-98.0) fL MCH 31.9 (27.0-33.0) pg MCHC 32.6 (31.0-35.0) g/dl RDW 13.1 (11.0-16.0) % Plt Count 228 (160-400) X10*3/uL MPV 10.8 (9.4-12.3) fL Immature Gran % (Auto) 0.7 H (0.0-0.4) % Neut % (Auto) 78.8 H (45-73) % Lymph % (Auto) 10.3 L (20-40) % Gilchrist % (Auto) 8.9 (2-11) % Eos % (Auto) 0.8 (0-4) % Baso % (Auto) 0.5 (0-2) % Lymph # (Auto) 1.1 L (1.2-4.9) X10*3/uL Gilchrist # (Auto) 0.9 (0.1-1.2) X10*3/uL Eos # (Auto) 0.1 (0.0-0.4) X10*3/uL Baso # (Auto) 0.1 (0.0-0.2) X10*3/uL Abs Immat Gran (auto) 0.07 H (0.00-0.03) X10*3/uL Absolute Neuts (auto) 8.1 (2.0-8.3) x10*3/uL Absolute Nucleated RBC 0.000 (0.0-0.012) X10*3/uL Nucleated RBC % (auto) 0.0 (0.0-0.2) /100WBC PT 16.6 H (11.1-13.3) SEC INR 1.4 H (0.9-1.1) VBG pH (7.32-7.43) VBG pCO2 mmHg VBG pO2 mmHg VBG HCO3 (22-26) mmol/L VBG O2 Saturation % VBG Base Excess mmol/L Sodium 141 (135-145) mmol/L Potassium 3.4 (3.3-5.1) mmol/L Chloride 99 (96-108) mmol/L Carbon Dioxide 31 H (22-29) mmol/L Anion Gap 14 (12-20) BUN 21 H (9-16) mg/dL Creatinine 0.88 (0.5-1.4) mg/dL Estim Creat Clear Calc 42.8 Estimated GFR > 60 Random Glucose 111 (60-115) mg/dL Calcium 11.1 H (8.4-10.2) mg/dL Total Bilirubin 0.7 (0.0-1.0) mg/dL AST 26 (5-31) U/L ALT 22 (0-31) U/L Alkaline Phosphatase 72 (39-117) U/L Troponin I High Sens (<3.5-17.0) ng/L Total Protein 7.5 (6.5-8.0) g/dL Albumin 4.1 (3.5-5.0) g/dL Urine Color Urine Appearance Urine pH (5.0-9.0) Ur Specific Raymond (1.005-1.025) Urine Protein (Neg-Trace) mg/dL Urine Glucose (UA) (Negative) mg/dL Urine Ketones (Negative) mg/dL Urine Blood (Negative) Urine Nitrite (Negative) Ur Leukocyte Esterase (Negative) 03/07/23 03/07/23 03/07/23 Range/Units 08:33 08:36 09:30 WBC (4.8-10.8) X10*3/uL RBC (4.20-5.50) X10*6/uL Hgb (12.0-16.0) g/dl Hct (37.0-47.0) % MCV (80.0-98.0) fL MCH (27.0-33.0) pg MCHC (31.0-35.0) g/dl RDW (11.0-16.0) % Plt Count (160-400) X10*3/uL MPV (9.4-12.3) fL Immature Gran % (Auto) (0.0-0.4) % Neut % (Auto) (45-73) % Lymph % (Auto) (20-40) % Gilchrist % (Auto) (2-11) % Eos % (Auto) (0-4) % Baso % (Auto) (0-2) % Lymph # (Auto) (1.2-4.9) X10*3/uL Gilchrist # (Auto) (0.1-1.2) X10*3/uL Eos # (Auto) (0.0-0.4) X10*3/uL Baso # (Auto) (0.0-0.2) X10*3/uL Abs Immat Gran (auto) (0.00-0.03) X10*3/uL Absolute Neuts (auto) (2.0-8.3) x10*3/uL Absolute Nucleated RBC (0.0-0.012) X10*3/uL Nucleated RBC % (auto) (0.0-0.2) /100WBC PT (11.1-13.3) SEC INR (0.9-1.1) VBG pH 7.56 H (7.32-7.43) VBG pCO2 42 mmHg VBG pO2 52 mmHg VBG HCO3 38 H (22-26) mmol/L VBG O2 Saturation 84.0 % VBG Base Excess 14.7 mmol/L Sodium (135-145) mmol/L Potassium (3.3-5.1) mmol/L Chloride (96-108) mmol/L Carbon Dioxide (22-29) mmol/L Anion Gap (12-20) BUN (9-16) mg/dL Creatinine (0.5-1.4) mg/dL Estim Creat Clear Calc Estimated GFR Random Glucose (60-115) mg/dL Calcium (8.4-10.2) mg/dL Total Bilirubin (0.0-1.0) mg/dL AST (5-31) U/L ALT (0-31) U/L Alkaline Phosphatase (39-117) U/L Troponin I High Sens 10.2 (<3.5-17.0) ng/L Total Protein (6.5-8.0) g/dL Albumin (3.5-5.0) g/dL Urine Color Yellow Urine Appearance Clear Urine pH 8.0 (5.0-9.0) Ur Specific Raymond <= 1.005 (1.005-1.025) Urine Protein Negative (Neg-Trace) mg/dL Urine Glucose (UA) Negative (Negative) mg/dL Urine Ketones Negative (Negative) mg/dL Urine Blood Negative (Negative) Urine Nitrite Negative (Negative) Ur Leukocyte Esterase Negative (Negative) Independent Interpretation I performed an independent interpretation of an: EKG Interpretation: Normal sinus rhythm, HR-73, RBBB, no STEMI, RI/QTC are within normal limits, QRS-136 Radiology Impression Radiologist Impression: Please see the discussion above External Record Review External record reviewed: Outpatient record, Prior outpatient labs and Prior outpatient radiology Chronic Conditions Patient?s care impacted by: Other COPD, CAD Discharge Plan Discharge Clinical Impression: Fall, Musculoskeletal pain Patient Disposition: Home, Self-Care Instructions: Fall Prevention for Older Adults (ED), Musculoskeletal Pain (ED) Additional Instructions: 1. I recommend [id number] Tylenol and lidocaine patches for any musculoskeletal pain. Otherwise, your workup today has been negative for any fracture, dislocations or intracranial injury. 2. Resume all home medications as prescribed. 3. Please follow-up with your primary care provider in the next 1-2 days. Return to the ER for any worsening symptoms. Prescriptions: No Action trazodone 50 mg tablet 100 mg PO BEDTIME Qty: 180 3RF montelukast 10 mg tablet 10 mg PO DAILY Qty: 90 3RF meclizine 25 mg tablet 25 mg PO TID PRN (Reason: dizziness) 14 Days Qty: 42 0RF albuterol sulfate 2.5 mg /3 mL (0.083 %) solution for nebulization 2.5 mg inhalation Q6H PRN (Reason: shortness of breath or wheezing) 30 Days Qty: 180 11RF metoprolol succinate 25 mg tablet extended release 24 hr 50 mg PO BID Qty: 120 3RF furosemide 40 mg tablet 40 mg PO Q12H Qty: 180 3RF potassium chloride 20 mEq packet 20 meq PO DAILY Qty: 50 3RF Advair HFA 230-21 mcg/actuation HFA aerosol inhaler 2 puff inhalation BID 90 Days Qty: 12 4RF levothyroxine [Synthroid] 25 mcg tablet 50 mcg PO SUSA@0600 levothyroxine [Synthroid] 25 mcg tablet 25 mcg PO MOTUWETHFR@0600 tramadol 50 mg tablet 50 mg PO Q8-12H PRN (Reason: pain) Qty: 20 0RF diazepam 5 mg tablet 5 mg PO BID lidocaine [Lidoderm] 5 % adhesive patch,medicated 1 patch topical DAILY 30 Days Qty: 30 4RF Rx Instructions: leave on most painful area for up to 12 hrs warfarin [Jantoven] 1 mg tablet PO (DME) nebulizers Misc See Rx Instructions .Route Rx Instructions: As directed (DME) CPAP Machine/Device Device See Rx Instructions .Route Rx Instructions: As directed (DME) Oxygen Home Use Kit See Rx Instructions .Route Rx Instructions: As directed rosuvastatin 10 mg tablet 20 mg PO .COMPLEX Rx Instructions: 20 mg orally three times a week; epinephrine 0.3 mg/0.3 mL auto-injector IM prednisone 5 mg tablet 5 mg PO Q OTHER DAY chlorhexidine gluconate 0.12 % mouthwash 15 ml buccal BID 14 Days Qty: 420 1RF levocetirizine 5 mg tablet 5 mg PO DAILY codeine-guaifenesin 10-100 mg/5 mL liquid 10 ml PO Q6H PRN (Reason: cough) 10 Days Qty: 300 0RF fluticasone propionate 50 mcg/actuation spray,suspension 2 spray intranasal DAILY 30 Days Qty: 15.8 11RF omeprazole 40 mg capsule,delayed release(DR/EC) 40 mg PO DAILY Qty: 90 1RF fluticasone propionate 50 mcg/actuation spray,suspension 2 spray intranasal DAILY 90 Days Qty: 3 3RF cefpodoxime 200 mg tablet 200 mg PO BID 14 Days Qty: 28 0RF Rx Instructions: must administer with a meal/food
[2023-03-07 08:10] VITALS: BP 144/64; PULSE 74; RESP 16; TEMP 36.9; O2SAT 98; BMI 22.8
[2023-03-07 08:38] LABS: MANUAL DIFF FLAG NO
[2023-03-07 08:40] LABS: Basophils Absolute Auto 0.1 X10*3/uL (0.0-0.2); Basophils Percent Auto 0.5 % (0-2); Eosinophils Absolute Auto 0.1 X10*3/uL (0.0-0.4); Eosinophils Percent Auto 0.8 % (0-4); Hematocrit 42.3 % (37.0-47.0); Hemoglobin 13.8 g/dl (12.0-16.0); Imm Gran Abs Auto 0.07 X10*3/uL (0.00-0.03); Imm Gran Pct Auto 0.7 % (0.0-0.4); Lymphocytes Absolute Auto 1.1 X10*3/uL (1.2-4.9); Lymphocytes Percent Auto 10.3 % (20-40); Mean Corpuscular HGB Conc 32.6 g/dl (31.0-35.0); Mean Corpuscular Hemoglobin 31.9 pg (27.0-33.0); Mean Corpuscular Volume 97.9 fL (80.0-98.0); Mean Platelet Volume 10.8 fL (9.4-12.3); Monocytes Absolute Auto 0.9 X10*3/uL (0.1-1.2); Monocytes Percent Auto 8.9 % (2-11); Neutrophils Absolute Auto 8.1 x10*3/uL (2.0-8.3); Neutrophils Percent Auto 78.8 % (45-73); Platelet Count 228 X10*3/uL (160-400); Red Blood Count 4.32 X10*6/uL (4.20-5.50); Red Cell Distribution Width 13.1 % (11.0-16.0); White Blood Count 10.2 X10*3/uL (4.8-10.8)
[2023-03-07 08:41] LABS: VBG Base Excess 14.7 mmol/L; VBG HCO3 38 mmol/L (22-26); VBG pCO2 42 mmHg; VBG pH 7.56 (7.32-7.43); VBG pO2 52 mmHg
[2023-03-07 08:41] LABS: Venous Blood Gas Refer to POC result
[2023-03-07 08:47] LABS: INTERNATIONAL NORM RATIO 1.4 (0.9-1.1); Prothrombin Time 16.6 SEC (11.1-13.3)
[2023-03-07 08:58] LABS: Alanine Aminotransferase 22 U/L (0-31); Albumin Level 4.1 g/dL (3.5-5.0); Alkaline Phosphatase 72 U/L (39-117); Anion Gap 14 (12-20); Aspartate Amino Transferase 26 U/L (5-31); Bilirubin Total 0.7 mg/dL (0.0-1.0); Blood Urea Nitrogen 21 mg/dL (9-16); Calcium 11.1 mg/dL (8.4-10.2); Carbon Dioxide 31 mmol/L (22-29); Chloride 99 mmol/L (96-108); Creatinine Clr Calc Pharmacy 42.8; Estimated Glomerular Filt Rate > 60; Glucose Random 111 mg/dL (60-115); Potassium 3.4 mmol/L (3.3-5.1); Sodium 141 mmol/L (135-145); Total Protein 7.5 g/dL (6.5-8.0)
[2023-03-07 09:02] LABS: Troponin-I High Sensitivity 10.2 ng/L (<3.5-17.0)
--- NOTE | 2023-03-07 09:19 | PC.NURSE ---
coming from home after fall last night, pt states she was hungry and trying to make food at around 2100. reports slipping and falling down approx 6 stairs. denies headstrike/loc. pt is on blood thinners. able to ambulate independently to the bathroom this morning. wears oxygen at 2L baseline. awaiting results from imaging at this time.
[2023-03-07 09:42] LABS: Appearance Urine Clear; Color Urine Yellow; Glucose Urine UA Negative (Negative); Leukocyte Esterase Urine Negative (Negative); Nitrite Urine Negative (Negative); Specific Gravity - Urine <= 1.005 (1.005-1.025); Urine Blood Negative (Negative); Urine Ketones Negative (Negative); Urine Protein Negative (Neg-Trace)
[2023-03-07 10:41] VITALS: BP 116/54; PULSE 67; RESP 16; TEMP 36.9; O2SAT 99
[2023-03-07] MEDS: Lidocaine 4 % Patch ADH..PATCH 1 PATCH TRANSDERMA (10:43)
== END 2023-03-07 11:24 | disposition home or self-care (01) ==
PROVIDERS: Emergency Provider Student in an Organized Health Care Education/Training Program
DX: S09.90XA Unspecified injury of head, initial encounter (principal); S39.92XA Unspecified injury of lower back, initial encounter; R51.9 Headache, unspecified; M54.2 Cervicalgia; R06.02 Shortness of breath; R94.31 Abnormal electrocardiogram [ECG] [EKG]; I45.2 Bifascicular block; M25.552 Pain in left hip; M25.551 Pain in right hip; W01.0XXA Fall on same level from slipping, tripping and stumbling without subsequent striking against object, initial encounter; Y93.9 Activity, unspecified; Y92.9 Unspecified place or not applicable; Y99.9 Unspecified external cause status; Z79.899 Other long term (current) drug therapy
CPT/HCPCS: 36415; 70450; 72125; 72131; 73521; 80053; 81003; 82803; 84484; 85025; 85610; 93005; 99284; 99285

== ENCOUNTER 2023-03-23 10:02 | Outpatient (AMB) | payer MEDICARE, SELFPAY ==
--- NOTE | 2023-03-23 10:08 | MHC.OFFVIS ---
Intake Vital Signs 03/23/23 10:10 Height 5 ft 3 in Weight 119 lb 0.794 oz BMI 21.1 BP 128/70 Blood Pressure Location Lt brachial Position Sitting Pulse 77 Pulse Source Pulse Oximeter Pulse Oximetry (%) 96 Oxygen Delivery Method Room Air Intake Visit Reasons: Cough Car Builder Required: No Allergies avocado [AVOCADO] Allergy (Mild, Verified 03/23/23 10:14) ITCHY THROAT, RASH azithromycin [AZITHROMYCIN] Allergy (Mild, Verified 03/23/23 10:14) ITCHY THROAT, RASH barium iodide [BARIUM IODIDE] Allergy (Mild, Verified 03/23/23 10:14) ITCHY THROAT, RASH barium sulfate Allergy (Mild, Verified 03/23/23 10:14) Itch bee pollen [BEE STINGS] Allergy (Mild, Verified 03/23/23 10:14) ITCHY THROAT, RASH ciprofloxacin [From CIPRO] Allergy (Mild, Verified 03/23/23 10:14) ITCHY THROAT, RASH clarithromycin [From BIAXIN] Allergy (Mild, Verified 03/23/23 10:14) ITCHY THROAT, RASH diatrizoate meglumine [From GASTROGRAFIN] Allergy (Mild, Verified 03/23/23 10:14) ITCHY THROAT, RASH diatrizoate sodium [From GASTROGRAFIN] Allergy (Mild, Verified 03/23/23 10:14) ITCHY THROAT, RASH diclofenac [From VOLTAREN] Allergy (Mild, Verified 03/23/23 10:14) ITCHY THROAT, RASH erythromycin base [ERYTHROMYCIN BASE] Allergy (Mild, Verified 03/23/23 10:14) ITCHY THROAT, RASH gentamicin [GENTAMICIN] Allergy (Mild, Verified 03/23/23 10:14) ITCHY THROAT, RASH Iodinated Contrast Media [IVP DYE] Allergy (Mild, Verified 03/23/23 10:14) ITCHY THROAT, RASH levofloxacin [From LEVAQUIN] Allergy (Mild, Verified 03/23/23 10:14) ITCHY THROAT, RASH metronidazole [From FLAGYL] Allergy (Mild, Verified 03/23/23 10:14) ITCHY THROAT, RASH moxifloxacin [From AVELOX] Allergy (Mild, Verified 03/23/23 10:14) ITCHY THROAT, RASH Penicillins [PENICILLINS] Allergy (Mild, Verified 03/23/23 10:14) ITCHY THROAT, RASH shrimp [SHRIMP] Allergy (Mild, Verified 03/23/23 10:14) ITCHY THROAT, RASH Sulfa (Sulfonamide Antibiotics) [SULFA (SULFONAMIDE ANTIBIOTICS)] Allergy (Mild, Verified 03/23/23 10:14) ITCHY THROAT, RASH vancomycin [VANCOMYCIN] Allergy (Mild, Verified 03/23/23 10:14) ITCHY THROAT, RASH HPI HPI Comments History of Present Illness Details The patient is a 77 y/o woman with a complicated history which includes: COPD, KANDY, pulmonary HTN, history pulmonary emboli on chronic anticoagulation, lung CA Stage IIIA s/o neoadjuvant chemoradiation and Left upper lobe lobectomy. She did have a CT scan today that I personally reviewed. Has not been personally read by the radiologist. Based on my reading she has some pulmonary nodules some that are new 4 mm in the right major fissure area. Other nodules are stable. Other post operative and pulmonary fibrotic changes stable. The patient should get a CT scan in 6 months. Also to note, she did not tolerate the Incruse nor budesonide. Will consider Daliresp. She was admitted to [facility] with diverticulitis. She was placed on IV antibiotics but she left against medical advice because she did not like the antibiotic options. In the meantime she was having some issues with coughing up some blood. She is also concerned because on her visit to [facility] she did have a CT scan of the chest and she was told that she had significant scarring of her lungs in addition to lung volume loss. I have not looked at the CT scan back in reassured her that she has had this radiation fibrosis for long time and volume loss due to the scarring was present before. We did review her perfusion scan demonstrating no defects to suggest any blood clots. Interestingly in the quantitative study the patient did have 81% of the blood flow going to her right lung and 18% going to the left. This is likely due to her previous surgery and also radiation changes. 07/14/2022 the patient is here for pulmonary follow-up visit. She was approved for the sildenafil and she did start a few weeks ago. Appears to be tolerating it okay. She does complaint of dyspnea on exertion. She has been using her oxygen more. She has a monitor her weight. She continues on the torsemide. We did talk about the importance of monitoring closely her weight and taking additional diuretic if necessary. She has been concerned about the shortness of breath and hypoxia at nighttime. She stopped using her BiPAP because her oxygen was low. I did reach out to her [employer] company in order to get her a adapter to use her oxygen with the BiPAP at 2 L. after she is set up with the oxygen will plan to do an overnight oximetry to make sure that she is getting enough. In the meantime regarding her pulmonary hypertension. She likely has a component of pulmonary veno-occlusive disease because of her episodes of pulmonary edema and diffuse alveolar hemorrhage. I did recommend she seek a pulmonary hypertension clinic. She has already been to [place] and also at [place] she would like to go somewhere where is not as far. Therefore she recommended [facility]. I made a referral at this time. she continues on the 10 mg of prednisone. The patient does have adrenal insufficiency and also has the antiphospholipid syndrome therefore she can continue it for now. Probably can decrease down to the lowest most effective dose when she is clinically better. She continues with respiratory therapy. She has been complaining of a cough. The patient continues to be very anxious and nervous. She does have a psychiatric evaluation coming up which I believe and will be helpful. Her family is also looking for ways for her to be at ease specially well living alone. 07/20/2022 the patient is here for a pulmonary follow-up visit. She continues to have progressive dyspnea on exertion. Moderately worse. She is having to use her oxygen all the time. She seems to be desaturating very quickly with minimal activity. Usually she can be without the oxygen most of the time. She also has noted that she has gained about 2 lb in the last few days. She continues with diuresis as prescribed. Unfortunately, she has not been using her BiPAP. She does use her oxygen. she did get the adapter for her BiPAP in order to around the oxygen. But, she did not know how to install it. She did bring it in I did teach her how to install it and did started for her. We also took for 6 minutes walk test. The patient did require 2 L continues. She has a portable conserving device in therefore she can not 9 that at 3 L pulse make sure that a pulse ox above 90%. She is okay at rest to be on room air. The patient did undergo a chest x-ray after the visit. I did reviewed. It appears that she is demonstrating some cephalization and some degree of pulmonary vascular congestion as well as worsening bilateral pleural effusions. This is all consistent with cardiogenic edema. I do believe that she does have a component of pulmonary veno-occlusive disease making it very difficult to treat her pulmonary hypertension. Again, she had gone to few pulmonary hypertension clinics in the past. But her condition was not as severe. I did recommend to send her back to [place] but the patient does not want to travel as far. Therefore, as per her request we referred her to [facility]. 09/08/2022 the patient is here for a Hospital follow-up visit. Patient had been admitted to [facility] after developing flash pulmonary edema and acute on chronic respiratory failure. On repeat echocardiogram appeared that she had severe mitral regurgitation. Likely contributing to her symptoms. Therefore the patient did require a mitral clip that was done successfully improving her symptoms. Subsequently to that she had a repeat echocardiogram demonstrating moderate pulmonary hypertension. The patient does have baseline pulmonary hypertension and had been started on sildenafil. However, then she had worsening symptoms likely the precipitating the mitral valve issue. Now the patient is to follow-up with pulmonary hypertension specialist and that to have a repeat cardiac catheterization to assess the degree of pulmonary hypertension and also to assess the degree of pulmonary veno-occlusive disease. Since the patient had the mitral clip she has not required any oxygen. She continued on the Lasix but her weight is been a lot better. Major complaint is she has been developing left-sided abdominal discomfort and cramping. She is passing a lot of gas and she is concerned about her symptoms. The patient be following up with her primary care doctor tomorrow. In meantime I did recommend that she consider laxatives to try to move her bowels. She also can have and abdominal chest x-ray to assess any other pathology. She also complains right groin pain which she had a catheterization for the MitraClip and she will be following up with her interventional cardiologists for that. We did go over all her medications and her inhalers. We also did go for brief walking oximetry in the patient did good but she did desaturate down to 91% going up 1 flight of stairs therefore based on her significant dyspnea she should continue to use the oxygen with activity specially with exercise when she is able to do so. 09/30/2022 the patient has a telehealth visit today. She has been sick. Has a worsening croupy cough. With chest congestion. Moderate severity. Yellowish phlegm. Denies any hemoptysis. The patient had increased her prednisone to daily. In addition to that appears that she has been slightly gaining weight. She is aware that if she gains couple lb in 24 hours or 3 lb in 48 hours she has to take additional diuresis. She continues use the BiPAP. She continues use the oxygen with activity. She does also have a nebulizer that she can use to help her clear her secretions. She has multiple allergies. Will have her start doxycycline for her worsening cough. She is actively coughing while on the phone and seems to be more congested than usual. 10/20/2022 the patient is here for pulmonary follow-up visit. She has multiple complaints. First she is very anxious with the departure of her daughter who moved to [place]. She is wondering about travel. Currently she is doing better from a respiratory status. Patient had a brief walking oximetry today and a 6 minute walk test last week both demonstrating no need for oxygen at this time. The patient is to using the oxygen with the BiPAP at nighttime. She understands that she can arrange that with she has lived in the [facility] now in order for her to have the oxygen concentrated to be set to that [facility] address. In addition to this she has been complaining of increasing palpitations and increased heart rate along with shortness of breath. She did call Cardiology and they did recommend increasing her Lasix to daily. This has done better job controlling her weight her symptoms did improve. Patient is also complaining of productive cough with white phlegm. Explained to the patient that she is going to have a component of chronic bronchitis. In regards of her pulmonary hypertension she has an appointment with specialist from [place] in the coming weeks. 12/08/2022 the patient is here for a pulmonary follow-up visit. She has multiple complaints. She still complaining of left-sided chest discomfort along worsening shortness of breath and tachycardia. Therefore she did undergo a chest x-ray and V/Q scan without any evidence of any recurrent blood clots. She continues on her Coumadin with good effect. She is trying to keep herself within the therapeutic range. When we ordered the V/Q scan she had been subtherapeutic. She continues on the prednisone 5 mg daily. Now she looks like she is going to need a tooth extraction. Therefore when I try to decrease that to 5 mg every other day. The patient can also try chlorhexidine mouthwash to try to minimize the need for antibiotics prior to the extraction. She may need clindamycin afterwards as per her dentist. In regards of the chest discomfort it appears to be reproducible appears to be more musculoskeletal. She is going to continue with massage therapy. She is not taking any pain medication because she is concerned about interaction or adverse effects. She is still concerned about her ongoing shortness of breath and tachycardia. We did review her echocardiogram after her mitral clip. Explained to her that she still had evidence of mild mitral regurg as well as now new mitral stenosis which is typical after the clip in addition to that moderate elevations in the pulmonary pressures. She did restart cardiac rehab which is reassuring. I do believe that she will benefit from teaching regarding breathing techniques to try to minimize hyperinflation and air trapping which have been to her when she starts hyperventilating therefore causing worsening dynamic inspiratory capacity. We did review again her x-ray demonstrating no acute disease. We also reviewed her last CT scan demonstrating no evidence of any concerning findings. 01/02/2023 the patient is here for pulmonary follow-up visit. Patient again has multiple complaints. She has been having hard time with breathing and also with back pain. She has had multiple evaluations in the ER approximately 4 times in the last month or so. Finally she had x-rays of her back demonstrating a compression fracture of T6 which appears to be relatively new and this is what is causing her back discomfort. The patient has been reluctant to undergo any interventions such as vertebroplasty or kyphoplasty. Therefore she is going to go ahead and have physical therapy for now and pain control. She does have a hard time taking a deep breath. Explained to her that this is part due to the vertebroplasty. In addition to that the patient has having issues with shortness of breath and tachycardia. From a respiratory status the patient seems to be doing well on the current therapy. She did have an echocardiogram doubt demonstrating a new IgG ric atrial septal defect which is from the mitral clip although was not mention during the last echo. This appears to have a [id number] shunt without dilated the right atria and elevated pulmonary pressures. The patient did have her diuretics increased and she seems to be breathing a little better. She is using her oxygen more regularly. She will have to follow up with Cardiology. In the meantime she does complaint of a cough with whitish clear sticky mucus. She also has like a lump in her throat. Moderate severity. On her examination she does have significant nasal congestion and postnasal drip some likely all related to rhinosinusitis. The patient is not using any nasal sprays. She is using allergy medication. She is using oxygen. The patient is interested in getting a portable oxygen concentrator. She is going to look into it and we can not see about providing her 1 in order for her to be able to travel to see her daughter. 02/09/2023 the patient is here for sick visit. The patient started developing worsening cough yesterday. Appeared to be more croupy cough and she could not stop coughing. She was talking to her daughter on the phone was very concerned and told her to call the on-call doctor. I did call her back. And we made an appointment to come in today. Ultimately she did take a cough still and she took something to drink and somewhat improved to cough. She denies any worsening shortness of breath. She has been using her oxygen. She has also been using the diuretics. Overall doing okay. Denies any fevers or chills. She has been exposed to sick contacts. Will go ahead and do a swab for COVID flu and RSV at this time. The patient continues to be on a small dose of prednisone. Explained to her that this is likely a viral respiratory illness resulting in tracheitis in [facility]. 02/23/2023 the patient is here for pulmonary follow-up visit. The patient continues to have ongoing symptoms of shortness of breath and heaviness. She is responding well to the current therapy. She has not had any hemoptysis. Tolerating the Coumadin. Does the question of her coming off the Coumadin because of the worsening alveolar hemorrhage. However, the patient has not had that many more episodes specially after having her cardiac procedure. Therefore I would not be concerned about continuing the Coumadin at this time. The patient is also very reluctant to stop the Coumadin and I believe that stopping the Coumadin will result in significant levels of anxiety for the patient and concerns of blood clots. The patient also will have a tooth extraction she will have Coumadin. For 3 days which is okay. She is also awaiting to follow-up with the escalation engineer regarding the iatrogenic atrial septal defect. The patient is having issues with like discomfort and sensitivity. I did recommend she call Pain Management regarding potential the use of compound creams to try to help alleviate some of the discomfort. Patient also is concerned about healing daytime drowsiness even after effective use of her BiPAP. I will ask for a download from the [employer] to see if he is working effectively. Also would check a venous gas to assess her CO2. I did recommend that is she still continues to have daytime drowsiness even after all the workup is completed if she continues to have persistent daytime drowsiness she can consider stimulant like new visual a good option to improve her daytime. 03/23/2023 the patient is here for a pulmonary follow-up visit. Overall the patient has been doing a little better. She continues on the diuresis. She will be following up with her escalation engineer regarding her mitral clip in the iatrogenic septal defect Causing her to have a [id number] shunt. Her last echo demonstrated moderate pulmonary hypertension. She also has been following closely with pulmonary hypertension specialist in [place]. At this point the patient just continues on diuresis. She has been using her oxygen more regularly I did advise her that she does not have to use her oxygen at rest. She should use the with activity. She also uses the BiPAP at nighttime. That has been affecting beneficial. She does use it for more than 4 hours a night. She does complaint of some raspiness increased dyspnea on exertion. [id number] severity. Her last PFTs were from 2020. Will have her repeat her PFTs at this time. Her last chest x-ray was from January 2023. No acute changes noted. More recently he also she was found to have an abnormal finding on MRI of the brain. Sent into the with the left orbital area. She is now following up with an screen tacker and will have additional imaging studies for that. The patient now has a portable oxygen concentrator. She would like to travel and see her daughter in [place] among other places. I did advise her to gets her vaccines up today before traveling via airplane. I do believe the patient is doing better from a respiratory status and should be able to travel once her vaccines are up-to-date. [facility] Medical History (Updated 03/23/23 @ 22:35 by Henry Kelly MD) COPD (chronic obstructive pulmonary disease) Compression fracture of body of thoracic vertebra ASD (atrial septal defect) Pleuritic chest pain History of COVID-19 Chronic anticoagulation Hypothyroidism GERD (gastroesophageal reflux disease) Hyperlipidemia Hypertension Factor 5 Leiden mutation, heterozygous History of non-ST elevation myocardial infarction (NSTEMI) Hypoxia Anxiety PTSD (post-traumatic stress disorder) Hemoptysis Dyspnea Tracheobronchitis CLARA positive Diverticulitis Allergic bronchitis (HFpEF) heart failure with preserved ejection fraction Subarachnoid bleed Insomnia Anti-phospholipid antibody syndrome Hypogammaglobulinemia Chronic respiratory failure Arterial insufficiency of lower extremity Complex regional pain syndrome i of right lower limb Post herpetic neuralgia Pulmonary hypertension Pericardial effusion Pulmonary emboli Pleural effusion Radiation fibrosis of lung Pneumonitis Pulmonary nodules KANDY treated with BiPAP Lung cancer Surgical History History of colonoscopy History of lung surgery History of tonsillectomy History of hysterectomy S/P mitral valve clip implantation History of cardiac cath Family History Sister No problems noted. Mother Cardiovascular disease Daughter Tachycardia Other KANDY (obstructive sleep apnea) Social History Household Members: None Housing: House Do you presently have visiting nurse or other home services: Yes Alcohol intake: former Patient Tobacco Use Status: Never used Tobacco Second Hand Smoke Exposure: No Advance Directives Date on File: 06/15/22 service: No Current occupational status: retired Review of Systems Const Reports daytime sleepiness, Reports fatigue and Denies weakness Eyes Denies itchy eyes ENT Denies dizziness and Reports nasal congestion Card Reports chest pain, Denies chest pain with activity, Denies syncope, Denies rapid heart rate, Denies pedal edema, Denies edema, Denies leg edema, Denies lightheadedness, Denies palpitations, Denies dyspnea, Reports dyspnea on exertion and Denies orthopnea Resp Denies chest congestion, Reports cough, Denies dyspnea and Reports dyspnea on exertion GI Reports bloating, Denies hematochezia, Denies change in stool character, Reports constipation and Reports GI cramping Reports no additional complaints Musc Denies abnormal gait, Reports back pain, Reports myalgias, Denies muscle weakness, Denies numbness, Denies radiating pain into limb and Denies tingling Skin/Breast Denies rash Neuro Denies abnormal gait, Denies dizziness, Denies syncope, Reports memory loss, Denies numbness, Denies tingling, Reports paresthesias and Denies weakness Psych Reports memory loss Endo Reports fatigue and Denies palpitations Aller/Immun Denies urticaria and Denies itchy eyes Physical Exam Vital Signs: Last Vital Signs Pulse 77 03/23/23 10:10 BP 128/70 03/23/23 10:10 Pulse Ox 96 03/23/23 10:10 Oxygen Delivery Method Room Air 03/23/23 10:10 BMI result Body Mass Index 21.1 Last Vital Signs Temp 97.7 F 06/20/22 08:00 Pulse 90 06/20/22 08:00 Resp 16 06/20/22 08:00 BP 137/60 06/20/22 08:00 Pulse Ox 93 06/20/22 08:00 O2 Del Method 06/20/22 08:00 O2 Flow Rate 2 06/20/22 08:00 FiO2 45 06/14/22 11:07 BMI result Body Mass Index 23.0 Const General: cooperative, comfortable, alert and awake Orientation/consciousness: patient oriented x3 HEENT Head: Yes atraumatic Eyes General: appearance normal, both eyes and all related structures Neck Neck: Yes trachea midline, Yes supple and Yes no JVD Chest Chest palpation & inspection: normal inspection of the chest Resp Effort & Inspection: normal respiratory effort and no cough Auscultation: no rales, no rhonchi, no wheezes and diminished lung sounds Cardio Rate: regular rate Rhythm: regular rhythm Heart sounds: S1 normal heart sound present and S2 normal heart sound present GI Auscultation: normal bowel sounds Skin General skin exam: purpura and scars Neuro General: patient oriented x3 and no focal motor deficits Extrem General: Yes no clubbing, cyanosis or edema Assessment & Plan Assessment & Plan (1) Pulmonary hypertension: Comment: severe based on RHC, moderate based on recent echo Code(s): I27.20 - Pulmonary hypertension, unspecified (2) Pulmonary nodules: Code(s): R91.8 - Other nonspecific abnormal finding of lung field (3) Chronic respiratory failure: Code(s): J96.10 - Chronic respiratory failure, unspecified whether with hypoxia or hypercapnia Qualifiers: Respiratory failure complication: hypoxia and hypercapnia Qualified Code(s): J96.11 - Chronic respiratory failure with hypoxia; J96.12 - Chronic respiratory failure with hypercapnia (4) KANDY treated with BiPAP: Code(s): G47.33 - Obstructive sleep apnea (adult) (pediatric) (5) Radiation fibrosis of lung: Comment: C/B traction bronchiectasis and airway obstructions . Code(s): J70.1 - Chronic and other pulmonary manifestations due to radiation (6) COPD (chronic obstructive pulmonary disease): Code(s): J44.9 - Chronic obstructive pulmonary disease, unspecified Qualifiers: COPD type: chronic bronchitis Chronic bronchitis type: simple Qualified Code(s): J41.0 - Simple chronic bronchitis Plan prednisone 2.5 mg Ambien for sleep continue Advair ASHA as needed CPT with acapella valve fluticasone F/U with interventional cardiology s/p mitral clip and iatrogenic ASD with left to right shunt Oxygen 2L/pulse with activity and sleep. 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
[2023-03-23 10:10] VITALS: BP 128/70; PULSE 77; O2SAT 96; BMI 21.1
== END 2023-03-23 10:43 | disposition home or self-care (01) ==
PROVIDERS: PCP Internal Medicine; Visit Provider Hospitalist
DX: J41.0 Simple chronic bronchitis (principal); I27.20 Pulmonary hypertension, unspecified; R91.8 Other nonspecific abnormal finding of lung field; J96.11 Chronic respiratory failure with hypoxia; J96.12 Chronic respiratory failure with hypercapnia; G47.33 Obstructive sleep apnea (adult) (pediatric); J70.1 Chronic and other pulmonary manifestations due to radiation
CPT/HCPCS: 99214

== ENCOUNTER → 2023-03-23 10:02 | Outpatient (BNVA) | payer MEDICARE, SELFPAY | PROVIDERS: PCP Internal Medicine; Visit Provider Hospitalist | DX: J41.0 Simple chronic bronchitis (principal); J70.1 Chronic and other pulmonary manifestations due to radiation; R91.8 Other nonspecific abnormal finding of lung field; I27.20 Pulmonary hypertension, unspecified; J96.11 Chronic respiratory failure with hypoxia; J96.12 Chronic respiratory failure with hypercapnia; G47.33 Obstructive sleep apnea (adult) (pediatric) | CPT/HCPCS: 99212 ==

== ENCOUNTER 2023-04-06 20:22 | Emergency (ER) | payer MEDICARE, SELFPAY ==
--- NOTE | ~2023-04-06 | US_ITS ---
EXAMINATION: US VENOUS ULTRASOUND WITH DOPPLER LOWER EXTREMITY, RIGHT CLINICAL INFORMATION: Right lower extremity edema and pain; history of deep venous thrombosis. COMPARISON: Venous ultrasound examinations of the right lower extremity dated 11/09/2022 and 07/25/2019. TECHNIQUE: Ultrasound of the deep veins is performed from the hip to the calf with compression sonography and color and pulse Doppler assessment. Spectral analysis with color-flow imaging is performed. FINDINGS: There is normal venous compression and respiratory variation and augmented flow. The visualized common femoral vein, superficial femoral vein, profunda femoral vein, popliteal vein, and the trifurcation region shows no evidence of deep venous thrombosis. There is no significant popliteal fossa cyst. If the patient's symptoms persist, followup ultrasound in 5 days 7 days might be of value to exclude proximal propagation from a non-visualized calf vein. US/US venous duplex LE RT IMPRESSION: No DVT demonstrated in the right lower extremity.
--- NOTE | ~2023-04-06 | XR_ITS ---
EXAMINATION: XR CHEST CLINICAL INFORMATION: Left lower lobe pain. COMPARISON: Chest radiograph 01/19/2023. TECHNIQUE: Frontal view of the chest was obtained. FINDINGS: Stable enlargement of the cardiomediastinal silhouette. Unchanged asymmetric elevation of the left hemidiaphragm. Stable platelike opacities and architectural distortion in the left lower lobe with similar mild blunting of the left lateral costophrenic angle. Similar degree of diffuse interstitial thickening and central vasculature prominence. No new focal airspace density. No pneumothorax. No acute osseous findings. XR/XR chest 1V IMPRESSION: No significant change compared to 01/19/2023.
[2023-04-06 20:29] VITALS: BP 143/76; PULSE 80; O2SAT 98
--- NOTE | 2023-04-06 20:51 | ECG_ITS ---
Test Reason : CHEST TIGHTNESS Blood Pressure : / mmHG Vent. Rate : 076 BPM Atrial Rate : 076 BPM P-R Int : 156 ms QRS Dur : 130 ms QT Int : 418 ms P-R-T Axes : 068 -60 056 degrees QTc Int : 470 ms Normal sinus rhythm Right bundle branch block Left anterior fascicular block Bifascicular block Minimal voltage criteria for LVH, may be normal variant ( R in aVL ) Abnormal ECG When compared with ECG of 07-MAR-2023 08:20, No significant change was found Referred By: Generic ED Physician Electronically Signed By:TAMMY HENDERSON
[2023-04-06 21:08] VITALS: BP 147/64; PULSE 83; RESP 16; TEMP 36.6; O2SAT 97; BMI 23.0
--- NOTE | 2023-04-06 21:56 | ED.CHESTPAIN ---
HPI - Chest Pain General Chief Complaint: Chest Pain Stated Complaint: upper right abd pain intermittent, per ems Time Seen by Provider: 04/06/23 21:32 Source: patient Mode of arrival: ambulatory Limitations: no limitations History of Present Illness HPI narrative: Radiology the patient comes to the emergency from home, with multiple complaints. Patient is complaining of left lower chest pain and left upper quadrant pain. Patient states she had 1 episode of diarrhea yesterday. Also patient complaining of right lower extremity pain, swelling, history of DVTs, patient on INR states she is compliant with meds. Patient states she went to see her primary care physician today and she forgot to tell her PCP the above-mentioned. Related Data Home Medications Medication Instructions Recorded Confirmed levothyroxine 25 mcg tablet 50 mcg PO SUSA@0600 05/25/22 02/13/23 (Synthroid) levothyroxine 25 mcg tablet 25 mcg PO MOTUWETHFR@0600 06/14/22 02/13/23 (Synthroid) CPAP (CPAP Machine/Device) 06/30/22 02/13/23 Oxygen Home Use 06/30/22 02/13/23 nebulizers 06/30/22 02/13/23 warfarin 1 mg tablet (Jantoven) mg PO 06/30/22 02/13/23 epinephrine 0.3 mg/0.3 mL IM 07/14/22 02/13/23 injection, auto-injector rosuvastatin 10 mg tablet 20 mg PO .COMPLEX 07/28/22 02/13/23 diazepam 5 mg tablet 5 mg PO BID Anxiety and Sleep 11/21/22 02/13/23 levocetirizine 5 mg tablet 5 mg PO DAILY 11/21/22 02/13/23 prednisone 5 mg tablet 5 mg PO Q OTHER DAY 01/02/23 02/13/23 Previous Rx's Medication Instructions Recorded trazodone 50 mg tablet 100 mg (2 x 50 mg) PO BEDTIME #180 06/24/22 tabs montelukast 10 mg tablet 10 mg PO DAILY #90 tabs 06/27/22 lidocaine 5 % topical patch 1 patch topical DAILY 30 days #30 07/20/22 (Lidoderm) ea meclizine 25 mg tablet 25 mg PO TID PRN dizziness 14 days 09/12/22 #42 tabs albuterol sulfate 2.5 mg/3 mL 2.5 mg (3 mL) inhalation Q6H PRN 09/21/22 (0.083 %) solution for nebulization shortness of breath or wheezing 30 days #180 mL chlorhexidine gluconate 0.12 % 15 ml buccal BID 14 days #420 mL 12/09/22 mouthwash tramadol 50 mg tablet 50 mg PO Q8-12H PRN pain #20 tabs 12/13/22 codeine 10 mg-guaifenesin 100 mg/5 10 ml PO Q6H PRN cough 10 days 01/02/23 mL oral liquid #300 mL fluticasone propionate 50 2 spray intranasal DAILY 30 days 01/02/23 mcg/actuation nasal #15.8 mL spray,suspension metoprolol succinate 25 mg 50 mg (2 x 25 mg) PO BID #120 tabs 01/18/23 tablet,extended release 24 hr omeprazole 40 mg capsule,delayed 40 mg PO DAILY #90 caps 01/18/23 release furosemide 40 mg tablet 40 mg PO Q12H #180 tabs 01/24/23 potassium chloride 20 mEq oral 20 meq PO DAILY #50 ea 01/28/23 packet cefpodoxime 200 mg tablet 200 mg PO BID 14 days #28 tabs 02/09/23 fluticasone propionate 50 2 spray intranasal DAILY 90 days 02/09/23 mcg/actuation nasal #3 ea spray,suspension Advair HFA 230 mcg-21 2 puff inhalation BID 90 days #36 03/07/23 mcg/actuation aerosol inhaler grams (fluticasone propion-salmeterol) Allergies Allergy/AdvReac Type Severity Reaction Status Date / Time avocado [AVOCADO] Allergy Mild ITCHY Verified 04/06/23 21:08 THROAT, RASH azithromycin [AZITHROMYCIN] Allergy Mild ITCHY Verified 04/06/23 21:08 THROAT, RASH barium iodide [BARIUM IODIDE] Allergy Mild ITCHY Verified 04/06/23 21:08 THROAT, RASH barium sulfate Allergy Mild Itch Verified 04/06/23 21:08 bee pollen [BEE STINGS] Allergy Mild ITCHY Verified 04/06/23 21:08 THROAT, RASH ciprofloxacin [From CIPRO] Allergy Mild ITCHY Verified 04/06/23 21:08 THROAT, RASH clarithromycin [From BIAXIN] Allergy Mild ITCHY Verified 04/06/23 21:08 THROAT, RASH diatrizoate meglumine Allergy Mild ITCHY Verified 04/06/23 21:08 [From GASTROGRAFIN] THROAT, RASH diatrizoate sodium Allergy Mild ITCHY Verified 04/06/23 21:08 [From GASTROGRAFIN] THROAT, RASH diclofenac [From VOLTAREN] Allergy Mild ITCHY Verified 04/06/23 21:08 THROAT, RASH erythromycin base Allergy Mild ITCHY Verified 04/06/23 21:08 [ERYTHROMYCIN BASE] THROAT, RASH gentamicin [GENTAMICIN] Allergy Mild ITCHY Verified 04/06/23 21:08 THROAT, RASH Iodinated Contrast Media Allergy Mild ITCHY Verified 04/06/23 21:08 [IVP DYE] THROAT, RASH levofloxacin [From LEVAQUIN] Allergy Mild ITCHY Verified 04/06/23 21:08 THROAT, RASH metronidazole [From FLAGYL] Allergy Mild ITCHY Verified 04/06/23 21:08 THROAT, RASH moxifloxacin [From AVELOX] Allergy Mild ITCHY Verified 04/06/23 21:08 THROAT, RASH Penicillins [PENICILLINS] Allergy Mild ITCHY Verified 04/06/23 21:08 THROAT, RASH shrimp [SHRIMP] Allergy Mild ITCHY Verified 04/06/23 21:08 THROAT, RASH Sulfa (Sulfonamide Allergy Mild ITCHY Verified 04/06/23 21:08 Antibiotics) THROAT, [SULFA (SULFONAMIDE RASH ANTIBIOTICS)] vancomycin [VANCOMYCIN] Allergy Mild ITCHY Verified 04/06/23 21:08 THROAT, RASH Review of Systems Review of Systems: Constitutional : No Weight loss, No Fever, No Chills, No Night Sweats, No Fatigue, No Malaise ENT/Mouth : No Hearing loss, No Ear Pain, No Nasal Congestion, No Sinus Pain, No Hoarseness, No sore throat, No Rhinorrhea, No Swallowing Difficulty Eyes: No Eye Pain, No Swelling, No Redness, No Foreign Body, No Discharge, No Vision Changes Cardiovascular : No Chest Pain, No SOB, No Dyspnea on Exertion, No Orthopnea, No Edema, No Palpitations Respiratory : No Cough, No Sputum, No Wheezing, No Smoke Exposure, No Dyspnea Gastrointestinal : No Nausea, No Vomiting, 1 episode of Diarrhea, No Constipation, no Melena complaining of left upper quadrant pain Genitourinary : no irregular bleeding, No Dysuria, No Urinary Frequency, No Hematuria, No Urinary Incontinence, No Urgency, No Flank Pain, No Urinary Flow Changes, No Hesitancy Musculoskeletal : Complaining of bilateral shoulder pain for 2 weeks, No Myalgias, No Joint Swelling Skin : No Skin Lesions, No rash Neuro : No Weakness, No Numbness, No Paresthesias, No Loss of Consciousness, No Dizziness, No Headache Psych : No Anxiety/Panic, No Depression, No SI/HI/AH/VH, No Social Issues, Heme/Lymph: No Bruising, No Bleeding,No Lymphadenopathy Endocrine : No Polyuria, No Polydipsia, No Temperature Intolerance FOR[facility] Past Medical History Medical History COPD (chronic obstructive pulmonary disease) Compression fracture of body of thoracic vertebra ASD (atrial septal defect) Pleuritic chest pain History of COVID-19 Chronic anticoagulation Hypothyroidism GERD (gastroesophageal reflux disease) Hyperlipidemia Hypertension Factor 5 Leiden mutation, heterozygous History of non-ST elevation myocardial infarction (NSTEMI) Hypoxia Anxiety PTSD (post-traumatic stress disorder) Hemoptysis Dyspnea Tracheobronchitis CLARA positive Diverticulitis Allergic bronchitis (HFpEF) heart failure with preserved ejection fraction Subarachnoid bleed Insomnia Anti-phospholipid antibody syndrome Hypogammaglobulinemia Chronic respiratory failure Arterial insufficiency of lower extremity Complex regional pain syndrome i of right lower limb Post herpetic neuralgia Pulmonary hypertension Pericardial effusion Pulmonary emboli Pleural effusion Radiation fibrosis of lung Pneumonitis Pulmonary nodules KANDY treated with BiPAP Lung cancer Surgical History History of colonoscopy History of lung surgery History of tonsillectomy History of hysterectomy S/P mitral valve clip implantation History of cardiac cath Family History Family History Sister No problems noted. Mother Cardiovascular disease Daughter Tachycardia Other KNADY (obstructive sleep apnea) Social History Social History Household Members: None Housing: House Do you presently have visiting nurse or other home services: Yes Alcohol intake: former Patient Tobacco Use Status: Never used Tobacco Second Hand Smoke Exposure: No Advance Directives: Yes Advance Directives on File: Yes Advance Directives Date on File: 06/15/22 service: No Current occupational status: retired Physical Exam Vital Signs: Vital Signs: Last Vital Signs Temp 97.8 F 04/06/23 21:08 Pulse 83 04/06/23 21:08 Resp 16 04/06/23 21:08 BP 147/64 H 04/06/23 21:08 Pulse Ox 97 04/06/23 21:08 O2 Del Method Nasal Cannula 04/06/23 21:08 Oxygen Flow Rate 2 04/06/23 21:08 BMI result Body Mass Index 23.0 Const: Other: Appearance: Alert. Oriented X3. No acute distress. Well-appearing Eyes: Pupils equal, round and reactive to light. ENT: Pharynx normal. Neck: Normal inspection. Neck supple. No lymph nodes noted. No crepitus CVS: Normal heart rate and rhythm. Pulses normal. Normal S1 and S2 Respiratory: No respiratory distress. Breath sounds normal. No Wheezing. No rales Abdomen: Soft and nontender. No rigidity. No distention. Skin: Skin warm and dry. Normal skin color. Normal skin turgor. Extremities: No lower extremity edema. No Lacerations. No Rash, right lower extremity does not seem swollen, patient states she has pain in the calf, patient has a large ecchymosis over the tibial aspect Neuro: Oriented X 3. No motor deficit. No sensory deficit. Moving all extremities. No slurred speech. CN 2 through 12 grossly intact Psych: calm, cooperative, normal affect Course Course Course Narrative: -all the patient's labs and imaging pending Medical Decision Making Medical Decision Making MDM Narrative: -my interpretation of labs: Patient's hematology chemistry at baseline, troponin BNP at baseline, -my interpretation of ultrasound of the right lower extremity: No obvious DVT -my interpretation of chest x-ray: A symmetric elevation of the left hemidiaphragm, possible atelectasis? -discussed the labs and imaging with the patient, patient may be discharged home Differential Diagnosis Differential Diagnoses: The differential diagnosis associated with the presentation includes (Anxiety, pneumonia, CHF) Admission/Observation Consideration of admission/observation: Escalation of care including admission/observation considered (Given the patient's initial complaints, patient was considered) Lab Data [facility] Lab Attestation statement: I reviewed the patient's lab results. 04/06/23 22:01 04/06/23 22:01 Labs: Lab Results 04/06/23 Range/Units 22:01 WBC 10.8 (4.8-10.8) X10*3/uL RBC 4.11 L (4.20-5.50) X10*6/uL Hgb 13.3 (12.0-16.0) g/dl Hct 40.8 (37.0-47.0) % MCV 99.3 H (80.0-98.0) fL MCH 32.4 (27.0-33.0) pg MCHC 32.6 (31.0-35.0) g/dl RDW 13.6 (11.0-16.0) % Plt Count 232 (160-400) X10*3/uL MPV 10.8 (9.4-12.3) fL Immature Gran % (Auto) 1.0 H (0.0-0.4) % Neut % (Auto) 72.5 (45-73) % Lymph % (Auto) 12.3 L (20-40) % [place] % (Auto) 11.8 H (2-11) % Eos % (Auto) 1.5 (0-4) % Baso % (Auto) 0.9 (0-2) % Lymph # (Auto) 1.3 (1.2-4.9) X10*3/uL [place] # (Auto) 1.3 H (0.1-1.2) X10*3/uL Eos # (Auto) 0.2 (0.0-0.4) X10*3/uL Baso # (Auto) 0.1 (0.0-0.2) X10*3/uL Abs Immat Gran (auto) 0.11 H (0.00-0.03) X10*3/uL Absolute Neuts (auto) 7.8 (2.0-8.3) x10*3/uL Absolute Nucleated RBC 0.000 (0.0-0.012) X10*3/uL Nucleated RBC % (auto) 0.0 (0.0-0.2) /100WBC PT 17.8 H (11.1-13.3) SEC INR 1.5 H (0.9-1.1) Sodium 141 (135-145) mmol/L Potassium 3.5 (3.3-5.1) mmol/L Chloride 99 (96-108) mmol/L Carbon Dioxide 28 (22-29) mmol/L Anion Gap 18 (12-20) BUN 27 H (9-16) mg/dL Creatinine 1.02 (0.5-1.4) mg/dL Estim Creat Clear Calc 36.4 Estimated GFR 52 Random Glucose 75 (60-115) mg/dL Calcium 10.9 H (8.4-10.2) mg/dL Total Bilirubin 0.4 (0.0-1.0) mg/dL Direct Bilirubin 0.2 (0.0-0.5) mg/dL AST 27 (5-31) U/L ALT 22 (0-31) U/L Alkaline Phosphatase 82 (39-117) U/L Troponin I High Sens 13.8 (<3.5-17.0) ng/L B-Natriuretic Peptide 453 H (<100) pg/mL Total Protein 7.4 (6.5-8.0) g/dL Albumin 3.9 (3.5-5.0) g/dL Lipase 28 (8-78) U/L Independent Interpretation I performed an independent interpretation of an: Plain X-Ray and Ultrasound Radiology Impression Discussion of test interpretation with radiology: I have reviewed the radiologist's reading. Radiologist Impression: FINDINGS: Stable enlargement of the cardiomediastinal silhouette. Unchanged asymmetric elevation of the left hemidiaphragm. Stable platelike opacities and architectural distortion in the left lower lobe with similar mild blunting of the left lateral costophrenic angle. Similar degree of diffuse interstitial thickening and central vasculature prominence. No new focal airspace density. No pneumothorax. No acute osseous findings. XR/XR chest 1V IMPRESSION: No significant change compared to 01/19/2023. FINDINGS: There is normal venous compression and respiratory variation and augmented flow. The visualized common femoral vein, superficial femoral vein, profunda femoral vein, popliteal vein, and the trifurcation region shows no evidence of deep venous thrombosis. There is no significant popliteal fossa cyst. If the patient's symptoms persist, followup ultrasound in 5 days 7 days might be of value to exclude proximal propagation from a non-visualized calf vein. US/US venous duplex LE RT IMPRESSION: No DVT demonstrated in the right lower extremity. Critical Care Time Critical Care Time Critical Care Time: Yes Total Critical Care Time: 60 Attestation: I have personally provided critical care time. Time includes review of lab data, radiology results, discussion with consultants, and monitoring for potential decompensation. Intervention performed as documented. Discharge Plan Discharge Clinical Impression: Leg pain, right, Abdominal pain Patient Disposition: Home, Self-Care Instructions: Abdominal Pain (ED) Additional Instructions: Please follow-up with your primary care physician tomorrow. If you have any worsening or new symptoms, please return to the emergency room or call 911 Prescriptions: No Action trazodone 50 mg tablet 100 mg PO BEDTIME Qty: 180 3RF montelukast 10 mg tablet 10 mg PO DAILY Qty: 90 3RF meclizine 25 mg tablet 25 mg PO TID PRN (Reason: dizziness) 14 Days Qty: 42 0RF albuterol sulfate 2.5 mg /3 mL (0.083 %) solution for nebulization 2.5 mg inhalation Q6H PRN (Reason: shortness of breath or wheezing) 30 Days Qty: 180 11RF metoprolol succinate 25 mg tablet extended release 24 hr 50 mg PO BID Qty: 120 3RF furosemide 40 mg tablet 40 mg PO Q12H Qty: 180 3RF potassium chloride 20 mEq packet 20 meq PO DAILY Qty: 50 3RF Advair HFA 230-21 mcg/actuation HFA aerosol inhaler 2 puff inhalation BID 90 Days Qty: 36 4RF levothyroxine [Synthroid] 25 mcg tablet 50 mcg PO SUSA@0600 levothyroxine [Synthroid] 25 mcg tablet 25 mcg PO MOTUWETHFR@0600 tramadol 50 mg tablet 50 mg PO Q8-12H PRN (Reason: pain) Qty: 20 0RF diazepam 5 mg tablet 5 mg PO BID lidocaine [Lidoderm] 5 % adhesive patch,medicated 1 patch topical DAILY 30 Days Qty: 30 4RF Rx Instructions: leave on most painful area for up to 12 hrs warfarin [Jantoven] 1 mg tablet PO (DME) nebulizers Misc See Rx Instructions .Route Rx Instructions: As directed (DME) CPAP Machine/Device Device See Rx Instructions .Route Rx Instructions: As directed (DME) Oxygen Home Use Kit See Rx Instructions .Route Rx Instructions: As directed rosuvastatin 10 mg tablet 20 mg PO .COMPLEX Rx Instructions: 20 mg orally three times a week; epinephrine 0.3 mg/0.3 mL auto-injector IM prednisone 5 mg tablet 5 mg PO Q OTHER DAY chlorhexidine gluconate 0.12 % mouthwash 15 ml buccal BID 14 Days Qty: 420 1RF levocetirizine 5 mg tablet 5 mg PO DAILY codeine-guaifenesin 10-100 mg/5 mL liquid 10 ml PO Q6H PRN (Reason: cough) 10 Days Qty: 300 0RF fluticasone propionate 50 mcg/actuation spray,suspension 2 spray intranasal DAILY 30 Days Qty: 15.8 11RF omeprazole 40 mg capsule,delayed release(DR/EC) 40 mg PO DAILY Qty: 90 1RF fluticasone propionate 50 mcg/actuation spray,suspension 2 spray intranasal DAILY 90 Days Qty: 3 3RF cefpodoxime 200 mg tablet 200 mg PO BID 14 Days Qty: 28 0RF Rx Instructions: must administer with a meal/food
[2023-04-06 22:06] LABS: MANUAL DIFF FLAG NO
[2023-04-06 22:07] LABS: Basophils Absolute Auto 0.1 X10*3/uL (0.0-0.2); Basophils Percent Auto 0.9 % (0-2); Eosinophils Absolute Auto 0.2 X10*3/uL (0.0-0.4); Eosinophils Percent Auto 1.5 % (0-4); Hematocrit 40.8 % (37.0-47.0); Hemoglobin 13.3 g/dl (12.0-16.0); Imm Gran Abs Auto 0.11 X10*3/uL (0.00-0.03); Lymphocytes Absolute Auto 1.3 X10*3/uL (1.2-4.9); Lymphocytes Percent Auto 12.3 % (20-40); Mean Corpuscular HGB Conc 32.6 g/dl (31.0-35.0); Mean Corpuscular Hemoglobin 32.4 pg (27.0-33.0); Mean Corpuscular Volume 99.3 fL (80.0-98.0); Mean Platelet Volume 10.8 fL (9.4-12.3); Monocytes Absolute Auto 1.3 X10*3/uL (0.1-1.2); Monocytes Percent Auto 11.8 % (2-11); Neutrophils Absolute Auto 7.8 x10*3/uL (2.0-8.3); Neutrophils Percent Auto 72.5 % (45-73); Platelet Count 232 X10*3/uL (160-400); Red Blood Count 4.11 X10*6/uL (4.20-5.50); Red Cell Distribution Width 13.6 % (11.0-16.0); White Blood Count 10.8 X10*3/uL (4.8-10.8)
[2023-04-06 22:20] LABS: Anion Gap 18 (12-20); Blood Urea Nitrogen 27 mg/dL (9-16); Calcium 10.9 mg/dL (8.4-10.2); Carbon Dioxide 28 mmol/L (22-29); Chloride 99 mmol/L (96-108); Creatinine Clr Calc Pharmacy 36.4; Estimated Glomerular Filt Rate 52; Glucose Random 75 mg/dL (60-115); Potassium 3.5 mmol/L (3.3-5.1); Sodium 141 mmol/L (135-145)
[2023-04-06 22:21] LABS: Alanine Aminotransferase 22 U/L (0-31); Albumin Level 3.9 g/dL (3.5-5.0); Alkaline Phosphatase 82 U/L (39-117); Aspartate Amino Transferase 27 U/L (5-31); Bilirubin Direct 0.2 mg/dL (0.0-0.5); Bilirubin Total 0.4 mg/dL (0.0-1.0); Lipase 28 U/L (8-78); Total Protein 7.4 g/dL (6.5-8.0)
[2023-04-06 22:27] LABS: B Type Natriuretic Peptide 453 pg/mL (<100)
[2023-04-06 22:28] LABS: Troponin-I High Sensitivity 13.8 ng/L (<3.5-17.0)
[2023-04-06 22:34] LABS: INTERNATIONAL NORM RATIO 1.5 (0.9-1.1); Prothrombin Time 17.8 SEC (11.1-13.3)
[2023-04-06 23:21] LABS: Appearance Urine Clear; Color Urine Yellow; Glucose Urine UA Negative (Negative); Leukocyte Esterase Urine Trace (Negative); Nitrite Urine Negative (Negative); PH 5.5 (5.0-9.0); UMIC TRIGGER UACC YES; Urine Blood Negative (Negative); Urine Ketones Negative (Negative); Urine Protein Negative (Neg-Trace)
[2023-04-06 23:23] LABS: Bacteria Urine None Seen (None Seen); Hyaline Casts Urine 0-2 /LPF (0-2); RBC Urine 0-2 /HPF (0-2); Squamous Epithelial Cell Urine 0-2 /HPF (0-2); WBC Urine 0-5 /HPF (0-5)
== END 2023-04-06 23:42 | disposition home or self-care (01) ==
PROVIDERS: Emergency Provider Emergency Medicine; PCP Internal Medicine
DX: M79.604 Pain in right leg (principal); R10.9 Unspecified abdominal pain; I10 Essential (primary) hypertension; E78.5 Hyperlipidemia, unspecified; D68.51 Activated protein C resistance; Z86.718 Personal history of other venous thrombosis and embolism; Z79.01 Long term (current) use of anticoagulants; Z79.899 Other long term (current) drug therapy
CPT/HCPCS: 36415; 71045; 80048; 80076; 81001; 83690; 83880; 84484; 85025; 85610; 93005; 93971; 99283; 99284

== ENCOUNTER 2023-04-12 | Outpatient (REF) | payer MEDICARE, SELFPAY | END 2023-04-12 00:01 | disposition home or self-care (01) | LOC: CF | PROVIDERS: Visit Provider Nurse Practitioner Family | DX: J44.9 Chronic obstructive pulmonary disease, unspecified (principal); I27.20 Pulmonary hypertension, unspecified; G47.33 Obstructive sleep apnea (adult) (pediatric); M79.89 Other specified soft tissue disorders; M54.2 Cervicalgia; M54.6 Pain in thoracic spine; Z86.711 Personal history of pulmonary embolism; Z85.118 Personal history of other malignant neoplasm of bronchus and lung; Z79.01 Long term (current) use of anticoagulants; Z92.21 Personal history of antineoplastic chemotherapy; Z92.3 Personal history of irradiation | CPT/HCPCS: 94640; 99212 ==

== ENCOUNTER 2023-04-12 14:28 | Outpatient (AMB) | payer MEDICARE, SELFPAY ==
[2023-04-12 14:39] VITALS: BP 134/78; PULSE 77; O2SAT 98; BMI 23.2
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
== END 2023-04-12 15:50 | disposition home or self-care (01) ==
LOC: HO.HPSW 14:28
PROVIDERS: PCP Internal Medicine; Visit Provider Nurse Practitioner Family
DX: C34.90 Malignant neoplasm of unspecified part of unspecified bronchus or lung (principal); I27.20 Pulmonary hypertension, unspecified; F41.9 Anxiety disorder, unspecified; Z79.01 Long term (current) use of anticoagulants; M79.89 Other specified soft tissue disorders; M54.2 Cervicalgia; M54.6 Pain in thoracic spine
CPT/HCPCS: 99212; 99214

== ENCOUNTER 2023-04-13 14:26 | Outpatient (REF) | payer MEDICARE, SELFPAY | END 2023-04-13 14:27 | disposition home or self-care (01) | LOC: HO.XRAY 14:26 | PROVIDERS: PCP Internal Medicine; Visit Provider Nurse Practitioner Family | DX: S22.000A Wedge compression fracture of unspecified thoracic vertebra, initial encounter for closed fracture (principal); M54.2 Cervicalgia | CPT/HCPCS: 72040; 72070 ==

== ENCOUNTER 2023-04-26 11:13 | Outpatient (AMB) | payer MEDICARE, SELFPAY ==
--- NOTE | 2023-04-26 11:16 | A.OFFVIS_ITS ---
Intake Vital Signs 04/26/23 11:17 Height 5 ft 3 in Weight 130 lb 1.164 oz BMI 23.0 BP 110/58 L Blood Pressure Location Lt brachial Position Sitting Pulse 72 Intake Visit Reasons: PCP requested / increased symptoms Intake Note: Follow-up per pcp for increased symptoms c/o weight gain 3lbs in 3 days and sob went to [facility] [place] 04/19 for chest pain and sob Outpatient Therapist Required: No Allergies avocado [AVOCADO] Allergy (Mild, Verified 04/06/23 21:08) ITCHY THROAT, RASH azithromycin [AZITHROMYCIN] Allergy (Mild, Verified 04/06/23 21:08) ITCHY THROAT, RASH barium iodide [BARIUM IODIDE] Allergy (Mild, Verified 04/06/23 21:08) ITCHY THROAT, RASH barium sulfate Allergy (Mild, Verified 04/06/23 21:08) Itch bee pollen [BEE STINGS] Allergy (Mild, Verified 04/06/23 21:08) ITCHY THROAT, RASH ciprofloxacin [From CIPRO] Allergy (Mild, Verified 04/06/23 21:08) ITCHY THROAT, RASH clarithromycin [From BIAXIN] Allergy (Mild, Verified 04/06/23 21:08) ITCHY THROAT, RASH diatrizoate meglumine [From GASTROGRAFIN] Allergy (Mild, Verified 04/06/23 21:08) ITCHY THROAT, RASH diatrizoate sodium [From GASTROGRAFIN] Allergy (Mild, Verified 04/06/23 21:08) ITCHY THROAT, RASH diclofenac [From VOLTAREN] Allergy (Mild, Verified 04/06/23 21:08) ITCHY THROAT, RASH erythromycin base [ERYTHROMYCIN BASE] Allergy (Mild, Verified 04/06/23 21:08) ITCHY THROAT, RASH gentamicin [GENTAMICIN] Allergy (Mild, Verified 04/06/23 21:08) ITCHY THROAT, RASH Iodinated Contrast Media [IVP DYE] Allergy (Mild, Verified 04/06/23 21:08) ITCHY THROAT, RASH levofloxacin [From LEVAQUIN] Allergy (Mild, Verified 04/06/23 21:08) ITCHY THROAT, RASH metronidazole [From FLAGYL] Allergy (Mild, Verified 04/06/23 21:08) ITCHY THROAT, RASH moxifloxacin [From AVELOX] Allergy (Mild, Verified 04/06/23 21:08) ITCHY THROAT, RASH Penicillins [PENICILLINS] Allergy (Mild, Verified 04/06/23 21:08) ITCHY THROAT, RASH shrimp [SHRIMP] Allergy (Mild, Verified 04/06/23 21:08) ITCHY THROAT, RASH Sulfa (Sulfonamide Antibiotics) [SULFA (SULFONAMIDE ANTIBIOTICS)] Allergy (Mild, Verified 04/06/23 21:08) ITCHY THROAT, RASH vancomycin [VANCOMYCIN] Allergy (Mild, Verified 04/06/23 21:08) ITCHY THROAT, RASH Medication List - Last Reconciled 04/26/23 by Luis Eduardo Cadet MD Advair HFA 230-21 mcg/actuation (fluticasone propion-salmeterol) 2 puffs inhal ation BID 90 days NS albuterol sulfate 2.5 mg (3 mL) inhalation Q6H PRN 30 days cefpodoxime 200 mg PO BID 14 days codeine-guaifenesin 10-100 mg/5 mL 10 mL PO Q6H PRN 10 days CPAP (CPAP Machine/Device) As directed diazepam 5 mg PO BID epinephrine IM fluticasone propionate 50 mcg/actuation 2 sprays intranasal DAILY 30 days furosemide 40 mg PO BID levocetirizine 5 mg PO DAILY levothyroxine (Synthroid) 50 mcg PO SUSA@0600 levothyroxine (Synthroid) 25 mcg PO MOTUWETHFR@0600 lidocaine 5% (Lidoderm) 1 patch topical DAILY 30 days meclizine 25 mg PO TID PRN 14 days metoprolol succinate ER 50 mg (2 x 25 mg) PO BID montelukast 10 mg PO DAILY nebulizers As directed omeprazole 40 mg PO DAILY Oxygen Home Use As directed potassium chloride 20 mEq PO DAILY prednisone 2.5 mg PO Q OTHER DAY rosuvastatin 20 mg orally three times a week; trazodone 100 mg (2 x 50 mg) PO BEDTIME warfarin (Jantoven) mg PO HPI HPI Comments History of Present Illness Details 78-year-old female complex medical issue s presenting follow-up. She recently was diagnosed with severe mitral valve regurgitation was felt not to be a good surgical candidate and underwent MitraClip. She had improvement in symptoms afterwards. She has advanced lung disease due to previous lung resection as well as radiation to the lungs. She also had pulmonary embolism in the past. She has pulmonary hypertension. She is presenting now because she was becoming more short of breath and had lower extremity edema. On her own she crease her furosemide to 40 mg over the last week or so. She said her breathing did not change with that strategy. It appears early November she was in the emergency department with shortness of breath and was diagnosed with left lower lobe pneumonia. She had some sharp left-sided chest pains which were pleuritic in nature likely due to underlying pneumonia. She was given antibiotics which she has completed. She is saying that her oxygen saturations the low when she is laying down. She does not use oxygen frequently. Specifically outside her home she does not use oxygen. She has tachycardia when she is ambulating which she has noticed but does not significantly get any palpitations. She continues to get short of breath with activities. She saw a pulmonary hypertension specialist and by her description she was told that her pulmonary hypertension was mostly due to mitral regurgitation. She is following with pulmonology at [facility]. 12/29/22: Was brought in for urgent foll ow-up. She called and was complaining of palpitations and fast heart rates as high as 120 beats per minute and was also complaining of shortness of breath. It appears she was referred for echocardiography by pulmonology and this showed that her right ventricle is [id number] dilated, right atrium was severely dilated with small pericardial effusion as before but small to moderate pleural effusion was also noted. Previous iatrogenic ASD from transseptal puncture was noted as well mitral stenosis due to mitral clip with mean gradient of 8-9 mm Hg. Previously this was 7 mm Hg. The patient was previously advised to use oxygen when she is ambulating. Apparently she was out with her friends and while walking she was not using oxygen and started feeling shortness of breath and checked her pulse and it was 120 beats per minute. She is saying when she is using oxygen she does not get similar symptoms and has not had any tachycardia while using oxygen. She has also gained few lb over the last few days. She was sent for chest x-ray which is showing left basal pleural effusion as seen on the echocardiography also. She is taking Lasix 40 mg once a day. She is on metoprolol succinate 25 mg twice a day. 01/11/23: She returns for follow-up. She had Holter monitor on her and the day she came to return it she had significant palpitations and shortness of breath while walking to the Cardiology Department. She said she was not rushing and was walking at a slow pace. She said these symptoms improved afterwards and she did not have any for the palpitations walking back to her car. She was using oxygen. She is wearing oxygen 30/01 but is saying that she feels lousy and has not felt any difference in her dyspnea or palpitations. She has been using 40 mg twice a day of Lasix. Her blood pressure control is good. Previously we did not increase her Toprol XL despite seeing some degree of mitral stenosis on her echocardiogram which is iatrogenic due to MitraClip. She has been more sedentary and is quite frail and deconditioned. She is tearful that she is unable to do any of the activities she was able to do before. 02/13/23: She returns for follow-up. She was previously on 40 mg p.o. b.i.d. Lasix. She had called our office for lower extremity edema and Lasix dose was increased to 80 mg twice a day. Subsequent to that she called or office that she is dehydrated and was advised to take 80 mg in the morning and 40 in the afternoon. She had blood workup which showed hypokalemia and she was started on potassium supplements. She continues to get fatigue and SOB. She is using oxygen when sleeping and with ambulation. Continues to get tachycardia with ambulation. 04/26/2023: She returns for follow-up. She called us yesterday because she gained 3 lb over 3 days. She was taking 40 mg p.o. b.i.d. Lasix. She was advised to take an extra dose of Lasix yesterday and increase the Lasix to 80 mg in the morning today. She said she checked her weight today and was back at 128 lb which was her baseline. She is saying she has been short of breath and fatigue. Also she had upper back pain which moved to her chest early April and she went to [facility] where she had a chest CTA performed which did not show any evidence of dissection or pulmonary embolism. Pulmonary arteries were noticed to be dilated consistent with her known history of pulmo nary hypertension. [facility] Medical History COPD (chronic obstructive pulmonary disease) Compression fracture of body of thoracic vertebra ASD (atrial septal defect) Pleuritic chest pain History of COVID-19 Chronic anticoagulation Hypothyroidism GERD (gastroesophageal reflux disease) Hyperlipidemia Hypertension Factor 5 Leiden mutation, heterozygous History of non-ST elevation myocardial infarction (NSTEMI) Hypoxia Anxiety PTSD (post-traumatic stress disorder) Hemoptysis Dyspnea Tracheobronchitis CLARA positive Diverticulitis Allergic bronchitis (HFpEF) heart failure with preserved ejection fraction Subarachnoid bleed Insomnia Anti-phospholipid antibody syndrome Hypogammaglobulinemia Chronic respiratory failure Arterial insufficiency of lower extremity Complex regional pain syndrome i of right lower limb Post herpetic neuralgia Pulmonary hypertension Pericardial effusion Pulmonary emboli Pleural effusion Radiation fibrosis of lung Pneumonitis Pulmonary nodules KANDY treated with BiPAP Lung cancer Surgical History History of colonoscopy History of lung surgery History of tonsillectomy History of hysterectomy S/P mitral valve clip implantation History of cardiac cath Family History Sister No problems noted. Mother Cardiovascular disease Daughter Tachycardia Other KANDY (obstructive sleep apnea) Social History (Updated 04/12/23 @ 14:47 by Lisa Guerrero LPN) Household Members: None Housing: House Do you presently have visiting nurse or other home services: Yes Alcohol intake: former Patient Tobacco Use Status: Never used Tobacco Second Hand Smoke Exposure: No Advance Directives Date on File: 06/15/22 service: No Current occupational status: retired Review of Systems Const Denies chills, Denies fatigue, Denies fever(s), Denies frequent falls, Denies weakness, Denies weight gain and Denies weight loss ENT Denies dizziness Card Denies chest pain, Denies leg edema, Denies lightheadedness, Denies pa lpitations, Denies dyspnea, Denies dyspnea on exertion, Denies orthopnea and Denies other (loss of consciousness) Resp Denies cough, Denies dyspnea and Denies dyspnea on exertion GI Denies hematochezia and Denies change in stool character Musc Denies abnormal gait, Denies muscle weakness, Denies numbness, Denies radiating pain into limb and Denies tingling Neuro Denies abnormal gait, Denies dizziness, Denies frequent falls, Denies numbness, Denies tingling and Denies weakness Endo Denies fatigue and Denies palpitations Physical Exam Vital Signs: Last Vital Signs Pulse 72 04/26/23 11:17 BP 110/58 L 04/26/23 11:17 BMI result Body Mass Index 23.0 GENERAL APPEARANCE: In no distress. NECK/THYROID: no carotid bruit, + JVD. SKIN: no suspicious lesions, warm and dry. HEART: no murmurs, regular rate and rhythm, S1, S2 normal. LUNGS: clear to auscultation bilaterally. ABDOMEN: normal, bowel sounds present, soft, nontender, nondistended. EXTREMITIES: no clubbing, cyanosis. No significant edema. PERIPHERAL PULSES: equal. NEUROLOGIC: nonfocal, alert and oriented. Assessment & Plan Assessment & Plan (1) Diastolic CHF: Code(s): I50.30 - Unspecified diastolic (congestive) heart failure Plan 78-year-old female with multiple comorbidities was presenting with 3 lb weight gain over the last 3 days. She took extra dose of Lasix yesterday and to 80 mg Lasix this morning and her weight is back to baseline. She has mild congestive heart failure currently. I have advised her to continue 40 mg p.o. b.i.d. Lasix. She will continue to check her weight daily and if she gained weight again she will take extra 40 mg dose. I have explained to her that if this is a consistent issue where she requires Lasix quite frequently then we may have to increase her morning dose of Lasix to 80 mg and continue 40 in the afternoon. She is quite sensitive to medications and her blood pressure usually is on the lower and. She also has kidney issues and gets quite concerned about dose adjustment. I am going to put in a request for basic metabolic panel which she will get in case she has to stay on 80 mg Lasix in the morning in the coming future. Follow-up with us in few months. Thank you for allowing me to participate in the care of your patient. Please feel free to contact me if you have any questions. Orders: Orders Basic Metabolic Panel Today I50.30 - Unspecified diastolic (congestive) heart failure Medications: Changed From furosemide 40 mg PO Q12H 180 tabs 3RF To furosemide 40 mg PO BID Coding Level of Care Code Est Pt Level 3 (28315) Diagnoses Diastolic CHF I50.30
[2023-04-26 11:17] VITALS: BP 110/58; PULSE 72; BMI 23.0
== END 2023-04-26 12:20 | disposition home or self-care (01) ==
PROVIDERS: PCP Internal Medicine; Visit Provider Internal Medicine Cardiovascular Disease
DX: I50.30 Unspecified diastolic (congestive) heart failure (principal)
CPT/HCPCS: 99213

== ENCOUNTER → 2023-04-26 11:13 | Outpatient (BNVA) | payer MEDICARE, SELFPAY | PROVIDERS: PCP Internal Medicine; Visit Provider Internal Medicine Cardiovascular Disease | DX: I50.30 Unspecified diastolic (congestive) heart failure (principal) | CPT/HCPCS: 99212 ==

== ENCOUNTER 2023-04-27 10:06 | Outpatient (AMB) | payer MEDICARE, SELFPAY ==
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
[2023-04-27 10:16] VITALS: BP 126/60; PULSE 87; O2SAT 99; BMI 23.0
== END 2023-04-27 10:54 | disposition home or self-care (01) ==
PROVIDERS: PCP Internal Medicine; Referring Provider Internal Medicine; Visit Provider Hospitalist
DX: C34.12 Malignant neoplasm of upper lobe, left bronchus or lung (principal); I27.20 Pulmonary hypertension, unspecified; J96.11 Chronic respiratory failure with hypoxia; J96.12 Chronic respiratory failure with hypercapnia; G47.33 Obstructive sleep apnea (adult) (pediatric); J70.1 Chronic and other pulmonary manifestations due to radiation; J41.0 Simple chronic bronchitis
CPT/HCPCS: 99215

== ENCOUNTER → 2023-04-27 10:06 | Outpatient (BNVA) | payer MEDICARE, SELFPAY | PROVIDERS: PCP Internal Medicine; Visit Provider Hospitalist | DX: J96.11 Chronic respiratory failure with hypoxia (principal); J96.12 Chronic respiratory failure with hypercapnia; J70.1 Chronic and other pulmonary manifestations due to radiation; J41.0 Simple chronic bronchitis; C34.12 Malignant neoplasm of upper lobe, left bronchus or lung; I27.20 Pulmonary hypertension, unspecified; R91.8 Other nonspecific abnormal finding of lung field; G47.33 Obstructive sleep apnea (adult) (pediatric) | CPT/HCPCS: 99212 ==

== ENCOUNTER 2023-04-28 14:34 | Outpatient (REF) | payer MEDICARE, SELFPAY ==
--- NOTE | ~2023-04-28 | US_ITS ---
EXAMINATION: US VENOUS ULTRASOUND WITH DOPPLER LOWER EXTREMITY, BILATERAL CLINICAL INFORMATION: Edema and pain, history of the venous thrombosis. COMPARISON: Right lower extremity ultrasound 04/06/2023. Left lower extremity ultrasound 01/06/2023. TECHNIQUE: Ultrasound of the deep veins is performed from the hip to the calf with compression sonography and color and pulse Doppler assessment. Spectral analysis with color-flow imaging is performed. FINDINGS: RIGHT: There is normal venous compression and respiratory variation and augmented flow. The visualized common femoral vein, superficial femoral vein, profunda femoral vein, popliteal vein, and the trifurcation region shows no evidence of deep venous thrombosis. There is no significant popliteal fossa cyst. LEFT: There is normal venous compression and respiratory variation and augmented flow. The visualized common femoral vein, superficial femoral vein, profunda femoral vein, popliteal vein, and the trifurcation region shows no evidence of deep venous thrombosis. There is no significant popliteal fossa cyst. US/US venous duplex LE BI IMPRESSION: No DVT demonstrated in the bilateral lower extremities. If the patient's symptoms persist, followup ultrasound in 5 days 7 days might be of value to exclude proximal propagation from a non-visualized calf vein.
== END 2023-04-28 14:35 | disposition home or self-care (01) ==
LOC: HO.US 14:34
PROVIDERS: PCP Internal Medicine; Visit Provider Hospitalist
DX: I82.403 Acute embolism and thrombosis of unspecified deep veins of lower extremity, bilateral (principal)
CPT/HCPCS: 93970

== ENCOUNTER 2023-05-06 19:59 | Emergency (ER) | payer MEDICARE, SELFPAY ==
--- NOTE | ~2023-05-06 | CT_ITS ---
EXAMINATION: CT HEAD WITHOUT CONTRAST CLINICAL INFORMATION: Head injury on Coumadin COMPARISON: None available. TECHNIQUE: Contiguous axial imaging was performed from the skull base to vertex without intravenous administration of contrast. This CT examination was performed using dose optimization techniques as appropriate, variously including the following: *Automated exposure control *Adjustment of mA and/or kV according to patient size (this includes techniques or standardized protocols for targeted exams where dose is matched to indication/reason for exam; i.e. extremities or head) *Use of iterative reconstruction technique DLP: 576 mGy-cm FINDINGS: There is no acute intra-axial, extra-axial bleed, masses or midline shift. There is no acute infarction evolution. There is no edema. The lateral ventricles are symmetrical in size and configuration without enlargement. The johnston to white matter differentiation is maintained. Bone windows reveal no calvarial abnormality. The paranasal sinuses and mastoid air cells are well-aerated. No scalp soft tissue abnormality seen. CT/CT head/brain wo IV con IMPRESSION: No acute intracranial process seen.
[2023-05-06 20:04] VITALS: BP 126/50; BP 141/54; PULSE 80; PULSE 89; RESP 16; TEMP 36.8; O2SAT 95; O2SAT 98; BMI 22.8
--- NOTE | 2023-05-06 20:15 | ED_ITS ---
HPI - General Adult General Chief complaint: General Medical Stated complaint: hit head while closing closet door, +thinners,-LOC Time Seen by Provider: 05/06/23 20:14 Source: patient Mode of arrival: EMS Limitations: no limitations History of Present Illness HPI narrative: Patient is on Coumadin for PE and antiphospholipid syndrome apparently was opening the closet folding door hit her forehead patient got scared , has slight swelling of the forehead no loss of consciousness no nausea no vomiting no other injuries patient behaving normally normal memory Related Data Home Medications Medication Instructions Recorded Confirmed levothyroxine 25 mcg tablet 50 mcg PO SUSA@0600 05/25/22 04/26/23 (Synthroid) levothyroxine 25 mcg tablet 25 mcg PO MOTUWETHFR@0600 06/14/22 04/26/23 (Synthroid) CPAP (CPAP Machine/Device) 06/30/22 02/13/23 Oxygen Home Use 06/30/22 02/13/23 nebulizers 06/30/22 02/13/23 warfarin 1 mg tablet (Jantoven) mg PO 06/30/22 04/26/23 epinephrine 0.3 mg/0.3 mL IM 07/14/22 04/26/23 injection, auto-injector rosuvastatin 10 mg tablet 20 mg PO .COMPLEX 07/28/22 04/26/23 diazepam 5 mg tablet 5 mg PO BID Anxiety and Sleep 11/21/22 04/26/23 levocetirizine 5 mg tablet 5 mg PO DAILY 11/21/22 04/26/23 prednisone 5 mg tablet 2.5 mg PO Q OTHER DAY 04/12/23 04/26/23 furosemide 40 mg tablet 40 mg PO BID 04/26/23 04/26/23 Previous Rx's Medication Instructions Recorded trazodone 50 mg tablet 100 mg (2 x 50 mg) PO BEDTIME #180 06/24/22 tabs montelukast 10 mg tablet 10 mg PO DAILY #90 tabs 06/27/22 lidocaine 5 % topical patch 1 patch topical DAILY 30 days #30 07/20/22 (Lidoderm) ea meclizine 25 mg tablet 25 mg PO TID PRN dizziness 14 days 09/12/22 #42 tabs albuterol sulfate 2.5 mg/3 mL 2.5 mg (3 mL) inhalation Q6H PRN 09/21/22 (0.083 %) solution for nebulization shortness of breath or wheezing 30 days #180 mL codeine 10 mg-guaifenesin 100 mg/5 10 ml PO Q6H PRN cough 10 days 01/02/23 mL oral liquid #300 mL fluticasone propionate 50 2 spray intranasal DAILY 30 days 01/02/23 mcg/actuation nasal #15.8 mL spray,suspension omeprazole 40 mg capsule,delayed 40 mg PO DAILY #90 caps 01/18/23 release potassium chloride 20 mEq oral 20 meq PO DAILY #50 ea 01/28/23 packet cefpodoxime 200 mg tablet 200 mg PO BID 14 days #28 tabs 02/09/23 Advair HFA 230 mcg-21 2 puff inhalation BID 90 days #36 03/07/23 mcg/actuation aerosol inhaler grams (fluticasone propion-salmeterol) metoprolol succinate 25 mg 50 mg (2 x 25 mg) PO BID 90 days 05/01/23 tablet,extended release 24 hr #360 tabs Allergies Allergy/AdvReac Type Severity Reaction Status Date / Time avocado [AVOCADO] Allergy Mild ITCHY Verified 05/06/23 20:09 THROAT, RASH azithromycin [AZITHROMYCIN] Allergy Mild ITCHY Verified 05/06/23 20:09 THROAT, RASH barium iodide [BARIUM IODIDE] Allergy Mild ITCHY Verified 05/06/23 20:09 THROAT, RASH barium sulfate Allergy Mild Itch Verified 05/06/23 20:09 bee pollen [BEE STINGS] Allergy Mild ITCHY Verified 05/06/23 20:09 THROAT, RASH ciprofloxacin [From CIPRO] Allergy Mild ITCHY Verified 05/06/23 20:09 THROAT, RASH clarithromycin [From BIAXIN] Allergy Mild ITCHY Verified 05/06/23 20:09 THROAT, RASH diatrizoate meglumine Allergy Mild ITCHY Verified 05/06/23 20:09 [From GASTROGRAFIN] THROAT, RASH diatrizoate sodium Allergy Mild ITCHY Verified 05/06/23 20:09 [From GASTROGRAFIN] THROAT, RASH diclofenac [From VOLTAREN] Allergy Mild ITCHY Verified 05/06/23 20:09 THROAT, RASH erythromycin base Allergy Mild ITCHY Verified 05/06/23 20:09 [ERYTHROMYCIN BASE] THROAT, RASH gentamicin [GENTAMICIN] Allergy Mild ITCHY Verified 05/06/23 20:09 THROAT, RASH Iodinated Contrast Media Allergy Mild ITCHY Verified 05/06/23 20:09 [IVP DYE] THROAT, RASH levofloxacin [From LEVAQUIN] Allergy Mild ITCHY Verified 05/06/23 20:09 THROAT, RASH metronidazole [From FLAGYL] Allergy Mild ITCHY Verified 05/06/23 20:09 THROAT, RASH moxifloxacin [From AVELOX] Allergy Mild ITCHY Verified 05/06/23 20:09 THROAT, RASH Penicillins [PENICILLINS] Allergy Mild ITCHY Verified 05/06/23 20:09 THROAT, RASH shrimp [SHRIMP] Allergy Mild ITCHY Verified 05/06/23 20:09 THROAT, RASH Sulfa (Sulfonamide Allergy Mild ITCHY Verified 05/06/23 20:09 Antibiotics) THROAT, [SULFA (SULFONAMIDE RASH ANTIBIOTICS)] vancomycin [VANCOMYCIN] Allergy Mild ITCHY Verified 05/06/23 20:09 THROAT, RASH Review of Systems Review of Systems: Yes all other systems are reviewed and are negative PMFSH Past Medical History Medical History DVT (deep venous thrombosis) COPD (chronic obstructive pulmonary disease) Compression fracture of body of thoracic vertebra ASD (atrial septal defect) Pleuritic chest pain History of COVID-19 Chronic anticoagulation Hypothyroidism GERD (gastroesophageal reflux disease) Hyperlipidemia Hypertension Factor 5 Leiden mutation, heterozygous History of non-ST elevation myocardial infarction (NSTEMI) Hypoxia Anxiety PTSD (post-traumatic stress disorder) Hemoptysis Dyspnea Tracheobronchitis CLARA positive Diverticulitis Allergic bronchitis (HFpEF) heart failure with preserved ejection fraction Subarachnoid bleed Insomnia Anti-phospholipid antibody syndrome Hypogammaglobulinemia Chronic respiratory failure Arterial insufficiency of lower extremity Complex regional pain syndrome i of right lower limb Post herpetic neuralgia Pulmonary hypertension Pericardial effusion Pulmonary emboli Pleural effusion Radiation fibrosis of lung Pneumonitis Pulmonary nodules KANDY treated with BiPAP Lung cancer Surgical History History of colonoscopy History of lung surgery History of tonsillectomy History of hysterectomy S/P mitral valve clip implantation History of cardiac cath Family History Family History Sister No problems noted. Mother Cardiovascular disease Daughter Tachycardia Other KANDY (obstructive sleep apnea) Social History Social History Household Members: None Housing: House Do you presently have visiting nurse or other home services: Yes Unable to assess alcohol history related to: Unknown Alcohol intake: former Patient Tobacco Use Status: Never used Tobacco Smoked in Last 30 Days: No Second Hand Smoke Exposure: No Use of substances other than those prescribed or required for medical reasons: No Advance Directives: Yes Advance Directives on File: Yes Advance Directives Date on File: 06/15/22 service: No Current occupational status: retired Physical Exam ED Vital Signs: Vital Signs - 24 hr 05/06/23 20:04 Temperature 98.3 F Pulse Rate 89 Respiratory Rate 16 Blood Pressure 141/54 H Pulse Oximetry 95 Oxygen Delivery Method Room Air BMI result Body Mass Index 22.8 Appearance: Alert. Oriented X3. No acute distress. Eyes: PERRLA, No Nystagmus HEENT: Pharynx normal. Oral Mucosa moist small ecchymosis on left forehead tympanic membrane intact Neck: Normal inspection. Neck supple. CVS: Normal heart rate and rhythm. Pulses normal. Respiratory: No respiratory distress. Equal air entry bilateral, no wheezing/rales/rhonchi Abdomen: Soft and nontender. Bowel sounds are present, no mass palpable, no CVA tenderness Skin: Skin warm and dry. Normal skin color. Normal skin turgor. Extremities: No lower extremity edema. No calf tenderness Neuro: Oriented X 3. No motor deficit. No sensory deficit.No cerebellar signs , cranial nerves II-XII intact Medical Decision Making Medical Decision Making MDM Narrative: Patient after minor head injury on Coumadin CT scan negative for acute patient alert oriented x3 ambulatory discharge patient home Differential Diagnosis Differential Diagnoses: The differential diagnosis associated with the presentation includes Subarachnoid bleed/subdural bleed/skull fracture Radiology Impression Discussion of test interpretation with radiology: I have reviewed the radiologist's reading. Radiologist Impression: Normal head CT Discharge Plan Discharge Clinical Impression: Minor closed head injury Patient Disposition: Home, Self-Care Instructions: Head Injury (ED) Additional Instructions: Apply ice pack take Tylenol for pain as needed Your CT scan of the head is negative for acute bleed Prescriptions: No Action trazodone 50 mg tablet 100 mg PO BEDTIME Qty: 180 3RF montelukast 10 mg tablet 10 mg PO DAILY Qty: 90 3RF meclizine 25 mg tablet 25 mg PO TID PRN (Reason: dizziness) 14 Days Qty: 42 0RF albuterol sulfate 2.5 mg /3 mL (0.083 %) solution for nebulization 2.5 mg inhalation Q6H PRN (Reason: shortness of breath or wheezing) 30 Days Qty: 180 11RF potassium chloride 20 mEq packet 20 meq PO DAILY Qty: 50 3RF Advair HFA 230-21 mcg/actuation HFA aerosol inhaler 2 puff inhalation BID 90 Days Qty: 36 4RF metoprolol succinate 25 mg tablet extended release 24 hr 50 mg PO BID 90 Days Qty: 360 3RF levothyroxine [Synthroid] 25 mcg tablet 50 mcg PO SUSA@0600 levothyroxine [Synthroid] 25 mcg tablet 25 mcg PO MOTUWETHFR@0600 diazepam 5 mg tablet 5 mg PO BID lidocaine [Lidoderm] 5 % adhesive patch,medicated 1 patch topical DAILY 30 Days Qty: 30 4RF Rx Instructions: leave on most painful area for up to 12 hrs warfarin [Jantoven] 1 mg tablet PO (DME) nebulizers [facility] [place] See Rx Instructions .Route Rx Instructions: As directed (DME) CPAP Machine/Device Device See Rx Instructions .Route Rx Instructions: As directed (DME) Oxygen Home Use Kit See Rx Instructions .Route Rx Instructions: As directed rosuvastatin 10 mg tablet 20 mg PO .COMPLEX Rx Instructions: 20 mg orally three times a week; epinephrine 0.3 mg/0.3 mL auto-injector IM prednisone 5 mg tablet 2.5 mg PO Q OTHER DAY levocetirizine 5 mg tablet 5 mg PO DAILY codeine-guaifenesin 10-100 mg/5 mL liquid 10 ml PO Q6H PRN (Reason: cough) 10 Days Qty: 300 0RF fluticasone propionate 50 mcg/actuation spray,suspension 2 spray intranasal DAILY 30 Days Qty: 15.8 11RF omeprazole 40 mg capsule,delayed release(DR/EC) 40 mg PO DAILY Qty: 90 1RF cefpodoxime 200 mg tablet 200 mg PO BID 14 Days Qty: 28 0RF Rx Instructions: must administer with a meal/food furosemide 40 mg tablet 40 mg PO BID
--- NOTE | 2023-05-06 23:11 | MHC.EDTECH ---
Call out to [facility] @2300 spoke to Shaka to book BLS transport back home ETA [id number]
== END 2023-05-06 23:28 | disposition home or self-care (01) ==
PROVIDERS: Emergency Provider Internal Medicine; PCP Internal Medicine
DX: S09.90XA Unspecified injury of head, initial encounter (principal); S00.83XA Contusion of other part of head, initial encounter; W20.8XXA Other cause of strike by thrown, projected or falling object, initial encounter; I10 Essential (primary) hypertension; E78.5 Hyperlipidemia, unspecified; Z85.118 Personal history of other malignant neoplasm of bronchus and lung; Z86.711 Personal history of pulmonary embolism; Z86.718 Personal history of other venous thrombosis and embolism; Z79.01 Long term (current) use of anticoagulants; Y93.89 Activity, other specified; Y92.019 Unspecified place in single-family (private) house as the place of occurrence of the external cause; Y99.9 Unspecified external cause status
CPT/HCPCS: 70450; 99284

== ENCOUNTER 2023-05-11 09:44 | Outpatient (AMB) | payer MEDICARE, SELFPAY ==
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
[2023-05-11 10:01] VITALS: BP 110/60; PULSE 86; O2SAT 98; BMI 22.8
== END 2023-05-11 10:45 | disposition home or self-care (01) ==
PROVIDERS: PCP Internal Medicine; Visit Provider Hospitalist
DX: C34.12 Malignant neoplasm of upper lobe, left bronchus or lung (principal); I27.20 Pulmonary hypertension, unspecified; R91.8 Other nonspecific abnormal finding of lung field; J96.11 Chronic respiratory failure with hypoxia; J96.12 Chronic respiratory failure with hypercapnia; G47.33 Obstructive sleep apnea (adult) (pediatric); J70.1 Chronic and other pulmonary manifestations due to radiation; J41.0 Simple chronic bronchitis
CPT/HCPCS: 99214

== ENCOUNTER → 2023-05-11 09:44 | Outpatient (BNVA) | payer MEDICARE, SELFPAY | PROVIDERS: PCP Internal Medicine; Visit Provider Hospitalist | DX: C34.90 Malignant neoplasm of unspecified part of unspecified bronchus or lung (principal); J96.11 Chronic respiratory failure with hypoxia; J96.12 Chronic respiratory failure with hypercapnia; J41.0 Simple chronic bronchitis; I27.20 Pulmonary hypertension, unspecified; J70.1 Chronic and other pulmonary manifestations due to radiation; R91.8 Other nonspecific abnormal finding of lung field; G47.33 Obstructive sleep apnea (adult) (pediatric); I26.99 Other pulmonary embolism without acute cor pulmonale; Z90.2 Acquired absence of lung [part of]; Z92.21 Personal history of antineoplastic chemotherapy; Z92.3 Personal history of irradiation; Z79.01 Long term (current) use of anticoagulants; Z99.81 Dependence on supplemental oxygen; Z99.89 Dependence on other enabling machines and devices | CPT/HCPCS: 99212 ==

== ENCOUNTER 2023-05-16 12:35 | Outpatient (REF) | payer MEDICARE, SELFPAY ==
--- NOTE | ~2023-05-16 | PE_ITS ---
EXAMINATION: Fluorine-18 FDG PET/CT Scan CLINICAL INDICATION: Initial treatment management. Right lung opacity. PROCEDURE: 66 minutes following the intravenous administration of 14.9 mCi of fluorine 18 FDG, images from the base of the skull to the mid thighs were obtained using a combined PET/CT scanner with CT scan based attenuation correction. No oral contrast was administered. No intravenous contrast was administered. Transverse, coronal, sagittal, and volume reconstruction projections were obtained. The patient's blood glucose as determined by a finger stick, was 105 mg/dl immediately prior to injection. Total CT exam dose-length product 513.88 mGy-cm * These CT images were obtained using dose optimization techniques as appropriate, variously including the following: Automated exposure control * Adjustment of mA and/or kV according to patient size (this includes techniques or standardized protocols for targeted exams where dose is matched to indication/reason for exam; i.e. extremities or head) * Use of iterative reconstruction technique COMPARISON: No previous PET/CT scan is available for comparison. CT scan of the chest dated 05/25/2022 is most recent relevant prior study available for comparison. FINDINGS: (Slice numbers described in this report are numbered superiorly to inferiorly with slice #1 in the head) NECK AND VISUALIZED HEAD: No foci of abnormal FDG activity are noted. The distribution of FDG activity is physiological. There is no cervical lymphadenopathy. THORAX: A right lower lobe 2.0 x 1.6 cm opacity present on the 05/25/[address] scan is no longer visualized on these nondiagnostic CT images. There is scarring or atelectasis in the lung bases bilaterally with no associated abnormal FDG activity. No suspicious pulmonary nodules are now visualized. There is a small left pleural effusion with mild FDG activity, SUVmax 3.2, slice 89/267. This is similar in size to the pleural effusion present on 05/25/2022. There is no pneumothorax. Trace pericardial fluid, predominantly left-sided is noted, and this was not present on 05/25/2022. There are no other foci of abnormal FDG activity present in the lungs. There is no mediastinal, supraclavicular or axillary lymphadenopathy. A MitraClip is in place, new since 05/25/2022. There is no abnormal FDG activity associated with this. ABDOMEN AND PELVIS: There are no foci of abnormal FDG activity in the abdomen or pelvis. There is mild FDG activity throughout the gastrointestinal tract without a suspicious focal component. There is diverticulosis without evidence of diverticulitis. The hollow viscera are otherwise unremarkable. The liver, gallbladder, spleen, adrenal glands, and pancreas are unremarkable. Hypodense cysts are present in the left kidney and these are FDG photopenic. The kidneys are otherwise unremarkable. The pelvic organs are unremarkable. There is no retroperitoneal, mesenteric, pelvic or inguinal lymphadenopathy. MUSCULOSKELETAL: There are no foci of abnormal FDG activity in the osseous structures. There are compression deformities at T4 and T5, more severely at T5 with no associated abnormal FDG activity indicating chronicity. There are degenerative changes in the spine but no suspicious sclerotic or lytic lesions are present. VASCULAR: Diffuse vascular calcifications including some coronary are noted. Reference SUVmax Levels: Mediastinal Blood Pool: 3.4, Slice 78/267 Liver: 6.4, Slice 112/267 PET/PET CT fusion skull to thigh IMPRESSION: 1. A right lower lobe opacity present on the 05/25/[address] scan is no longer definitely visualized on these nondiagnostic CT images. There are no additional suspicious nodules present in the lungs. Follow-up with diagnostic CT scan of the chest to confirm resolution of this is recommended. 2. A small left pleural effusion is present unchanged in size from 05/25/2022 and mildly FDG avid. This is nonspecific but likely inflammatory in etiology. This could also be further characterized with a diagnostic CT scan of the chest. 3. Diffuse vascular calcifications including coronary.
== END 2023-05-16 12:36 | disposition home or self-care (01) ==
LOC: HO.PET 12:35
PROVIDERS: PCP Internal Medicine; Visit Provider Hospitalist
DX: Z13.89 Encounter for screening for other disorder (principal)

== ENCOUNTER 2023-05-29 13:22 | Outpatient (AMB) | payer MEDICARE, SELFPAY ==
--- NOTE | 2023-05-29 13:24 | A.OFFVIS_ITS ---
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 Left is worse than right. She reports that she is having pain in the socket She has difficulty with ambulation and sleeping on the left side. She has occasional numbness and tingling of the feet. She has difficult going up stairs due to lack of ROM. Both of her legs are quite painful to the touch She has hematoma in the right leg that burst prior to surgery. She mentions that she has multiple vertebral fracture. Allergies avocado [AVOCADO] Allergy (Mild, Verified 06/15/23 10:45) ITCHY THROAT, RASH azithromycin [AZITHROMYCIN] Allergy (Mild, Verified 06/15/23 10:45) ITCHY THROAT, RASH barium iodide [BARIUM IODIDE] Allergy (Mild, Verified 06/15/23 10:45) ITCHY THROAT, RASH barium sulfate Allergy (Mild, Verified 06/15/23 10:45) Itch bee pollen [BEE STINGS] Allergy (Mild, Verified 06/15/23 10:45) ITCHY THROAT, RASH ciprofloxacin [From CIPRO] Allergy (Mild, Verified 06/15/23 10:45) ITCHY THROAT, RASH clarithromycin [From BIAXIN] Allergy (Mild, Verified 06/15/23 10:45) ITCHY THROAT, RASH diatrizoate meglumine [From GASTROGRAFIN] Allergy (Mild, Verified 06/15/23 10:45) ITCHY THROAT, RASH diatrizoate sodium [From GASTROGRAFIN] Allergy (Mild, Verified 06/15/23 10:45) ITCHY THROAT, RASH diclofenac [From VOLTAREN] Allergy (Mild, Verified 06/15/23 10:45) ITCHY THROAT, RASH erythromycin base [ERYTHROMYCIN BASE] Allergy (Mild, Verified 06/15/23 10:45) ITCHY THROAT, RASH gentamicin [GENTAMICIN] Allergy (Mild, Verified 06/15/23 10:45) ITCHY THROAT, RASH Iodinated Contrast Media [IVP DYE] Allergy (Mild, Verified 06/15/23 10:45) ITCHY THROAT, RASH levofloxacin [From LEVAQUIN] Allergy (Mild, Verified 06/15/23 10:45) ITCHY THROAT, RASH metronidazole [From FLAGYL] Allergy (Mild, Verified 06/15/23 10:45) ITCHY THROAT, RASH moxifloxacin [From AVELOX] Allergy (Mild, Verified 06/15/23 10:45) ITCHY THROAT, RASH Penicillins [PENICILLINS] Allergy (Mild, Verified 06/15/23 10:45) ITCHY THROAT, RASH shrimp [SHRIMP] Allergy (Mild, Verified 06/15/23 10:45) ITCHY THROAT, RASH Sulfa (Sulfonamide Antibiotics) [SULFA (SULFONAMIDE ANTIBIOTICS)] Allergy (Mild, Verified 06/15/23 10:45) ITCHY THROAT, RASH vancomycin [VANCOMYCIN] Allergy (Mild, Verified 06/15/23 10:45) ITCHY THROAT, RASH 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 She complains of pain with daily activity, worse with prolonged walking, using stairs, or lying on her left side especially. She says her pain is in the joint but is felt on the lateral aspect of her hips, she denies any groin pain. She says she has limited ROM and finds it challenging to climb stairs. She reports weakness in her legs and issues with her balance. She complains of pain throughout her whole body, and in regards to her legs she says they are painful to the touch. She reports occasional numbness in her feet at time, denies any numbness, tingling, or burning in her hips. She has a hx of a burst hematoma in her right leg in ~2019, and multiple vertebral fractures in the past. Hx of DVT, cervicalgia, COPD, CAD, CHF, and lung cancer, and she uses home oxygen. [facility] Medical History DVT (deep venous thrombosis) COPD (chronic obstructive pulmonary disease) Compression fracture of body of thoracic vertebra ASD (atrial septal defect) Pleuritic chest pain History of COVID-19 Chronic anticoagulation Hypothyroidism GERD (gastroesophageal reflux disease) Hyperlipidemia Hypertension Factor 5 Leiden mutation, heterozygous History of non-ST elevation myocardial infarction (NSTEMI) Hypoxia Anxiety PTSD (post-traumatic stress disorder) Hemoptysis Dyspnea Tracheobronchitis CLARA positive Diverticulitis Allergic bronchitis (HFpEF) heart failure with preserved ejection fraction Subarachnoid bleed Insomnia Anti-phospholipid antibody syndrome Hypogammaglobulinemia Chronic respiratory failure Arterial insufficiency of lower extremity Complex regional pain syndrome i of right lower limb Post herpetic neuralgia Pulmonary hypertension Pericardial effusion Pulmonary emboli Pleural effusion Radiation fibrosis of lung Pneumonitis Pulmonary nodules KANDY treated with BiPAP Lung cancer Surgical History History of colonoscopy History of lung surgery History of tonsillectomy History of hysterectomy S/P mitral valve clip implantation History of cardiac cath Family History Sister No problems noted. Mother Cardiovascular disease Daughter Tachycardia Other KANDY (obstructive sleep apnea) Social History Household Members: None Housing: House Do you presently have visiting nurse or other home services: Yes Unable to assess alcohol history related to: Unknown Alcohol intake: former Comment: stand by assist with ambulation Patient Tobacco Use Status: Never used Tobacco Second Hand Smoke Exposure: No Advance Directives Date on File: 06/15/22 service: No Current occupational status: retired Review of Systems Const All systems reviewed & are unremarkable except as noted in HPI and below Physical Exam Vital Signs: BMI result Body Mass Index 22.8 Const General: no acute distress, alert and awake Orientation/consciousness: patient oriented x3 HEENT Head: Yes normocephalic and Yes atraumatic Eyes EOM: EOMs intact bilaterally Resp Effort & Inspection: normal respiratory effort and able to speak in complete sentences Cardio Jugular venous distension: no JVD Skin General skin exam: turgor normal Rashes: no rashes Neuro General: patient oriented x3 Extrem Other: No pain with hip ROM Neg impingement Psych Appearance: grossly normal Affect: normal affect Attitude: cooperative Results Reviewed Results Reviewed: I personally reviewed relevant radiographs 1. No acute visible fracture or dislocation. 2. Mild degenerative changes of the bilateral femoral acetabular joints. 3. Degenerative arthropathy of the lumbosacral spine. Assessment & Plan Assessment & Plan (1) Bilateral hip pain: Code(s): M25.551 - Pain in right hip; M25.552 - Pain in left hip Plan: This is an 78 year old woman with multiple complaints, including bilateral hip pain, leg weakness, and poor gait mechanics. She has pain in the lateral aspect of her hips, which radiates down her legs, along with weakness. She denies any groin pain, numbness, or tingling in her legs. She has multiple medical comorbidities & complaints of whole body pain, with radiographically mild hip OA. No orthopedic intervention warranted. I ordered PT to work on normalizing gait mechanics and strengthening. She can follow up prn, if her symptoms persist or worsen we may consider a referral to Pain Management. (2) Complex regional pain syndrome i of right lower limb: Code(s): G90.521 - Complex regional pain syndrome I of right lower limb (3) Thoracic back pain: Code(s): M54.6 - Pain in thoracic spine (4) Musculoskeletal back pain: Code(s): M54.9 - Dorsalgia, unspecified (5) Gait disturbance: Code(s): R26.9 - Unspecified abnormalities of gait and mobility (6) Bilateral leg weakness: Code(s): R29.898 - Other symptoms and signs involving the musculoskeletal system Plan Scribed for Douglas Sherwood MD by Jcarlos Nova, medical records coder, on 05/29/23 at 2:15 PM, EST. Orders: Orders PT Evaluation and Treatment 05/29/23 R29.898 - Other symptoms and signs involving the musculoskeletal system, R26.9 - Unspecified abnormalities of gait and mobility Coding Level of Care Code New Pt Level 4 (76286) Diagnoses Bilateral hip pain M25.551; M25.552 Complex regional pain syndrome i of right lower limb G90.521 Thoracic back pain M54.6 Musculoskeletal back pain M54.9 Gait disturbance R26.9 Bilateral leg weakness R29.898
[2023-05-29 13:25] VITALS: BMI 22.8
== END 2023-05-29 14:32 | disposition home or self-care (01) ==
LOC: HO.HOS 13:22
PROVIDERS: PCP Internal Medicine; Visit Provider Orthopaedic Surgery
DX: M25.551 Pain in right hip (principal); M25.552 Pain in left hip; G90.521 Complex regional pain syndrome I of right lower limb; M54.6 Pain in thoracic spine; M54.9 Dorsalgia, unspecified; R26.9 Unspecified abnormalities of gait and mobility
CPT/HCPCS: 99204

== ENCOUNTER → 2023-05-29 13:22 | Outpatient (BNVA) | payer MEDICARE, SELFPAY | PROVIDERS: PCP Internal Medicine; Visit Provider Orthopaedic Surgery | DX: M25.551 Pain in right hip (principal); M25.552 Pain in left hip; M54.6 Pain in thoracic spine; M54.9 Dorsalgia, unspecified; G90.521 Complex regional pain syndrome I of right lower limb; R29.898 Other symptoms and signs involving the musculoskeletal system; R26.9 Unspecified abnormalities of gait and mobility | CPT/HCPCS: 99202 ==

== ENCOUNTER 2023-06-15 10:34 | Outpatient (REF) | payer MEDICARE, SELFPAY ==
--- NOTE | ~2023-06-15 | XR_ITS ---
EXAMINATION: XR CHEST CLINICAL INFORMATION: Chronic obstructive pulmonary disease. COMPARISON: 04/06/[address] chest 07/09/2020. 04/13/2023 radiographs thoracic spine. TECHNIQUE: 2 views of the chest were obtained. FINDINGS: Stable enlargement of the cardiac silhouette. There is no gross pneumothorax. Redemonstration of asymmetric elevation of the left lung base, with postsurgical/posttreatment changes, better characterized on CT scan of June 2020. Similar left mid to lower lung opacities and blunting of the left costophrenic angle. Redemonstration of similar diffuse interstitial prominence and central vascular prominence. 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 Cardiac silhouette partially obscured, but is likely still enlarged. XR/XR chest 2V IMPRESSION: Similar appearance with chronic changes as detailed above.
[2023-06-15 11:58] LABS: VBG Base Excess 15.4 mmol/L; VBG HCO3 42 mmol/L (22-26); VBG pCO2 61 mmHg; VBG pH 7.44 (7.32-7.43); VBG pO2 27 mmHg
[2023-06-15 11:59] LABS: Venous Blood Gas Refer to POC result
[2023-06-15 12:01] LABS: MANUAL DIFF FLAG NO
[2023-06-15 12:05] LABS: Basophils Absolute Auto 0.1 X10*3/uL (0.0-0.2); Basophils Percent Auto 0.5 % (0-2); Eosinophils Absolute Auto 0.1 X10*3/uL (0.0-0.4); Eosinophils Percent Auto 0.9 % (0-4); Hemoglobin 13.2 g/dl (12.0-16.0); Imm Gran Abs Auto 0.12 X10*3/uL (0.00-0.03); Lymphocytes Absolute Auto 1.1 X10*3/uL (1.2-4.9); Lymphocytes Percent Auto 8.8 % (20-40); Mean Corpuscular HGB Conc 32.2 g/dl (31.0-35.0); Mean Corpuscular Hemoglobin 32.1 pg (27.0-33.0); Mean Corpuscular Volume 99.8 fL (80.0-98.0); Mean Platelet Volume 11.4 fL (9.4-12.3); Monocytes Absolute Auto 1.1 X10*3/uL (0.1-1.2); Monocytes Percent Auto 8.7 % (2-11); Neutrophils Percent Auto 80.1 % (45-73); Platelet Count 221 X10*3/uL (160-400); Red Blood Count 4.11 X10*6/uL (4.20-5.50); Red Cell Distribution Width 13.6 % (11.0-16.0); White Blood Count 12.5 X10*3/uL (4.8-10.8)
[2023-06-15 12:27] LABS: Anion Gap 12 (12-20); Blood Urea Nitrogen 27 mg/dL (9-16); Calcium 10.7 mg/dL (8.4-10.2); Carbon Dioxide 38 mmol/L (22-29); Chloride 97 mmol/L (96-108); Estimated Glomerular Filt Rate > 60; Glucose Random 77 mg/dL (60-115); Potassium 3.3 mmol/L (3.3-5.1); Sodium 144 mmol/L (135-145)
[2023-06-15 12:34] LABS: B Type Natriuretic Peptide 448 pg/mL (<100)
[2023-06-15 12:37] LABS: Troponin-I High Sensitivity 13.8 ng/L (<3.5-17.0)
[2023-06-15 13:14] LABS: Erythrocyte Sedimentation Rate 26 MM/HR (0-20)
[2023-06-19 13:38] LABS: Immunoglobulin G Subclass 1 430 mg/dL (382-929); Immunoglobulin G Subclass 2 313 mg/dL (241-700); Immunoglobulin G Subclass 3 41 mg/dL (22-178); Immunoglobulin G Total 876 mg/dL (600-1540)
== END 2023-06-15 10:35 | disposition home or self-care (01) ==
LOC: HO.LAB 10:34
PROVIDERS: PCP Internal Medicine; Visit Provider Hospitalist
DX: C34.12 Malignant neoplasm of upper lobe, left bronchus or lung (principal); I27.20 Pulmonary hypertension, unspecified; R91.8 Other nonspecific abnormal finding of lung field; J96.11 Chronic respiratory failure with hypoxia; J96.12 Chronic respiratory failure with hypercapnia; I50.30 Unspecified diastolic (congestive) heart failure; J44.9 Chronic obstructive pulmonary disease, unspecified; R07.81 Pleurodynia
CPT/HCPCS: 36415; 71046; 80048; 82784; 82803; 83880; 84484; 85025; 85652; 87040; 99212

== ENCOUNTER 2023-06-15 10:34 | Outpatient (AMB) | payer MEDICARE, SELFPAY ==
[2023-06-15 10:41] VITALS: BP 128/60; PULSE 82; O2SAT 97; BMI 22.8
--- NOTE | 2023-06-15 10:41 | MHC.OFFVIS ---
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 Chronic obstructive pulmonary disease, unspecified XR chest 2V Today J44.9 - Chronic obstructive pulmonary disease, unspecified Medications: New doxycycline hyclate 100 mg PO BID 10 days 20 caps 0RF Coding Level of Care Code Est Pt Level 5 (98029) Diagnoses Malignant neoplasm of upper lobe of left lung C34.12 Laterality: left Lung location: upper lobe of lung Pulmonary hypertension I27.20 Pulmonary nodules R91.8 Chronic respiratory failure with hypoxia and hypercapnia J96.11; J96.12 Respiratory failure complication: hypoxia and hypercapnia KANDY treated with BiPAP G47.33 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
== END 2023-06-15 11:09 | disposition home or self-care (01) ==
PROVIDERS: PCP Internal Medicine; Visit Provider Hospitalist
DX: C34.12 Malignant neoplasm of upper lobe, left bronchus or lung (principal); I27.20 Pulmonary hypertension, unspecified; J96.11 Chronic respiratory failure with hypoxia; J96.12 Chronic respiratory failure with hypercapnia; G47.33 Obstructive sleep apnea (adult) (pediatric); J70.1 Chronic and other pulmonary manifestations due to radiation; J41.0 Simple chronic bronchitis; I50.32 Chronic diastolic (congestive) heart failure
CPT/HCPCS: 99215

== ENCOUNTER 2023-07-20 10:26 | Outpatient (AMB) | payer MEDICARE, SELFPAY ==
--- NOTE | 2023-07-20 10:30 | MHC.OFFVIS ---
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 obstructions . Code(s): J70.1 - Chronic and other pulmonary manifestations due to radiation (7) COPD (chronic obstructive pulmonary disease): Code(s): J44.9 - Chronic obstructive pulmonary disease, unspecified Qualifiers: COPD type: chronic bronchitis Chronic bronchitis type: simple Qualified Code(s): J41.0 - Simple chronic bronchitis (8) Diastolic CHF: Code(s): I50.30 - Unspecified diastolic (congestive) heart failure Qualifiers: Heart failure chronicity: chronic Qualified Code(s): I50.32 - Chronic diastolic (congestive) heart failure (9) (HFpEF) heart failure with preserved ejection fraction: Code(s): I50.30 - Unspecified diastolic (congestive) heart failure Qualifiers: Heart failure chronicity: chronic Qualified Code(s): I50.32 - Chronic diastolic (congestive) heart failure (10) Abdominal pain: Comment: h/o diverticulitis Code(s): R10.9 - Unspecified abdominal pain Qualifiers: Abdominal location: left lower quadrant Qualified Code(s): R10.32 - Left lower quadrant pain Plan Bloodwork today start vantin x 10 days, if abdominal pain worsens needs to seek medical attention prednisone 2.5 mg Ambien for sleep continue Advair ASHA as needed continue ASHA (xopenex) as needed CPT with acapella valve fluticasone Oxygen 2L/pulse with activity and sleep. POC Inogen G5 duiresis as tolerated continue BIPAP at night with O2 F/U 6-8 weeks Orders: Orders Complete Blood Count Auto Diff Today J44.9 - Chronic obstructive pulmonary disease, unspecified Basic Metabolic Panel Today J44.9 - Chronic obstructive pulmonary disease, unspecified Venous Blood Gas Today J44.9 - Chronic obstructive pulmonary disease, unspecified Medications: New cefpodoxime must administer with a meal/food 200 mg PO BID 20 tabs 0RF Changed From levocetirizine 5 mg PO DAILY To levocetirizine 5 mg PO DAILY 90 days 90 tabs 3RF Refilled trazodone 100 mg (2 x 50 mg) PO BEDTIME 180 tabs 3RF montelukast 10 mg PO DAILY 90 tabs 3RF Coding Level of Care Code Est Pt Level 5 (18509) Diagnoses Malignant neoplasm of upper lobe of left lung C34.12 Laterality: left Lung location: upper lobe of lung Pulmonary hypertension I27.20 Pulmonary nodules R91.8 Chronic respiratory failure with hypoxia and hypercapnia J96.11; J96.12 Respiratory failure complication: hypoxia and hypercapnia KANDY treated with BiPAP G47.33 Radiation fibrosis of lung 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 Chronic heart failure with preserved ejection fraction I50.32 Heart failure chronicity: chronic Left lower quadrant abdominal pain R10.32 Abdominal location: left lower quadrant Time Spent (min) 50
[2023-07-20 10:31] VITALS: BP 118/60; PULSE 88; O2SAT 97; BMI 23.2
== END 2023-07-20 11:14 | disposition home or self-care (01) ==
PROVIDERS: PCP Internal Medicine; Visit Provider Hospitalist
DX: C34.12 Malignant neoplasm of upper lobe, left bronchus or lung (principal); I27.20 Pulmonary hypertension, unspecified; J96.11 Chronic respiratory failure with hypoxia; J96.12 Chronic respiratory failure with hypercapnia; G47.33 Obstructive sleep apnea (adult) (pediatric); J70.1 Chronic and other pulmonary manifestations due to radiation; J41.0 Simple chronic bronchitis; I50.32 Chronic diastolic (congestive) heart failure; R10.32 Left lower quadrant pain
CPT/HCPCS: 99215

== ENCOUNTER 2023-07-20 10:26 | Outpatient (REF) | payer MEDICARE, SELFPAY ==
[2023-07-20 11:38] LABS: MANUAL DIFF FLAG NO
[2023-07-20 11:41] LABS: Basophils Absolute Auto 0.1 X10*3/uL (0.0-0.2); Basophils Percent Auto 0.4 % (0-2); Eosinophils Percent Auto 0.3 % (0-4); Hematocrit 38.8 % (37.0-47.0); Hemoglobin 12.5 g/dl (12.0-16.0); Imm Gran Abs Auto 0.19 X10*3/uL (0.00-0.03); Imm Gran Pct Auto 1.2 % (0.0-0.4); Lymphocytes Absolute Auto 0.8 X10*3/uL (1.2-4.9); Lymphocytes Percent Auto 4.8 % (20-40); Mean Corpuscular HGB Conc 32.2 g/dl (31.0-35.0); Mean Corpuscular Hemoglobin 32.6 pg (27.0-33.0); Mean Corpuscular Volume 101.3 fL (80.0-98.0); Monocytes Percent Auto 6.7 % (2-11); Neutrophils Absolute Auto 13.5 x10*3/uL (2.0-8.3); Neutrophils Percent Auto 86.6 % (45-73); Platelet Count 215 X10*3/uL (160-400); Red Blood Count 3.83 X10*6/uL (4.20-5.50); Red Cell Distribution Width 13.7 % (11.0-16.0); White Blood Count 15.6 X10*3/uL (4.8-10.8)
[2023-07-20 11:44] LABS: VBG pH 7.48 (7.32-7.43); Venous Blood Gas Refer to POC result
[2023-07-20 11:45] LABS: VBG HCO3 43 mmol/L (22-26); VBG pCO2 56 mmHg; VBG pO2 28 mmHg
[2023-07-20 11:56] LABS: Anion Gap 13 (12-20); Blood Urea Nitrogen 21 mg/dL (9-16); Calcium 10.6 mg/dL (8.4-10.2); Carbon Dioxide 32 mmol/L (22-29); Chloride 98 mmol/L (96-108); Estimated Glomerular Filt Rate > 60; Glucose Random 95 mg/dL (60-115); Potassium 4.3 mmol/L (3.3-5.1); Sodium 139 mmol/L (135-145)
== END 2023-07-20 10:27 | disposition home or self-care (01) ==
LOC: HO.LAB 10:26
PROVIDERS: PCP Internal Medicine; Visit Provider Hospitalist
DX: J41.0 Simple chronic bronchitis (principal); J96.11 Chronic respiratory failure with hypoxia; J70.1 Chronic and other pulmonary manifestations due to radiation; I27.20 Pulmonary hypertension, unspecified; G47.33 Obstructive sleep apnea (adult) (pediatric); C34.12 Malignant neoplasm of upper lobe, left bronchus or lung; R91.8 Other nonspecific abnormal finding of lung field; I50.32 Chronic diastolic (congestive) heart failure; R10.9 Unspecified abdominal pain; Z99.81 Dependence on supplemental oxygen; Z79.01 Long term (current) use of anticoagulants; Z86.711 Personal history of pulmonary embolism
CPT/HCPCS: 36415; 80048; 82803; 85025; 99212

== ENCOUNTER 2023-08-09 13:12 | Outpatient (AMB) | payer MEDICARE, SELFPAY ==
--- NOTE | 2023-08-09 13:15 | A.OFFVIS_ITS ---
Intake Vital Signs 08/09/23 13:17 Height 5 ft 3 in Weight 126 lb BMI 22.3 BP 116/64 Blood Pressure Location Rt brachial Position Sitting Pulse 85 Pulse Source Pulse Oximeter Pulse Oximetry (%) 95 Oxygen Delivery Method Nasal Cannula Oxygen Flow Rate 2 Intake Visit Reasons: Pneumonia left Product Engineer Required: No Chemical Research Engineer: Chemical Research Engineer offered & declined Accompanied by: Self / Same As Patient Allergies avocado [AVOCADO] Allergy (Mild, Verified 08/09/23 13:22) ITCHY THROAT, RASH azithromycin [AZITHROMYCIN] Allergy (Mild, Verified 08/09/23 13:22) ITCHY THROAT, RASH barium iodide [BARIUM IODIDE] Allergy (Mild, Verified 08/09/23 13:22) ITCHY THROAT, RASH barium sulfate Allergy (Mild, Verified 08/09/23 13:22) Itch bee pollen [BEE STINGS] Allergy (Mild, Verified 08/09/23 13:22) ITCHY THROAT, RASH ciprofloxacin [From CIPRO] Allergy (Mild, Verified 08/09/23 13:22) ITCHY THROAT, RASH clarithromycin [From BIAXIN] Allergy (Mild, Verified 07/20/23 10:30) ITCHY THROAT, RASH diatrizoate meglumine [From GASTROGRAFIN] Allergy (Mild, Verified 08/09/23 13:22) ITCHY THROAT, RASH diatrizoate sodium [From GASTROGRAFIN] Allergy (Mild, Verified 08/09/23 13:22) ITCHY THROAT, RASH diclofenac [From VOLTAREN] Allergy (Mild, Verified 08/09/23 13:22) ITCHY THROAT, RASH erythromycin base [ERYTHROMYCIN BASE] Allergy (Mild, Verified 08/09/23 13:22) ITCHY THROAT, RASH gentamicin [GENTAMICIN] Allergy (Mild, Verified 08/09/23 13:22) ITCHY THROAT, RASH Iodinated Contrast Media [IVP DYE] Allergy (Mild, Verified 08/09/23 13:22) ITCHY THROAT, RASH levofloxacin [From LEVAQUIN] Allergy (Mild, Verified 08/09/23 13:22) ITCHY THROAT, RASH metronidazole [From FLAGYL] Allergy (Mild, Verified 08/09/23 13:22) ITCHY THROAT, RASH moxifloxacin [From AVELOX] Allergy (Mild, Verified 08/09/23 13:22) ITCHY THROAT, RASH Penicillins [PENICILLINS] Allergy (Mild, Verified 08/09/23 13:22) ITCHY THROAT, RASH shrimp [SHRIMP] Allergy (Mild, Verified 08/09/23 13:22) ITCHY THROAT, RASH Sulfa (Sulfonamide Antibiotics) [SULFA (SULFONAMIDE ANTIBIOTICS)] Allergy (Mild, Verified 08/09/23 13:22) ITCHY THROAT, RASH vancomycin [VANCOMYCIN] Allergy (Mild, Verified 08/09/23 13:22) ITCHY THROAT, RASH clindamycin Adverse Reaction (Intermediate, Verified 08/09/23 13:22) Unknown Medication List - Last Reconciled 08/09/23 by Lisa Guerrero LPN Advair HFA 230-21 mcg/actuation (fluticasone propion-salmeterol) 2 puffs inhalation BID 90 days NS albuterol sulfate 2.5 mg (3 mL) inhalation Q6H PRN 30 days codeine-guaifenesin 10-100 mg/5 mL 10 mL PO Q6H PRN 10 days CPAP (CPAP Machine/Device) As directed diazepam 5 mg PO BID epinephrine IM fluticasone propionate 50 mcg/actuation 2 sprays intranasal DAILY 30 days furosemide 40 mg PO BID levalbuterol tartrate 45 mcg/actuation (Xopenex HFA) 2 puffs inhalation Q6H PRN 90 days levocetirizine 5 mg PO DAILY 90 days levothyroxine (Synthroid) 50 mcg PO SUSA@0600 levothyroxine (Synthroid) 25 mcg PO MOTUWETHFR@0600 meclizine 25 mg PO TID PRN 14 days metoprolol succinate ER 50 mg (2 x 25 mg) PO BID 90 days montelukast 10 mg PO DAILY nebulizers As directed Oxygen Home Use As directed potassium chloride 20 mEq PO DAILY prednisone 2.5 mg PO Q OTHER DAY rosuvastatin 10 mg PO Q OTHER DAY trazodone 100 mg (2 x 50 mg) PO BEDTIME triamcinolone acetonide 0.1% 1 appl topical BID-TID warfarin (Jantoven) mg PO HPI Pneumonia left HPI Details Jovana is an 78 year old female followed for COPD, KANDY on BiPAP, moderate to severe pulmonary HTN (RHC performed), prior pulmonary emboli on chronic anticoagulation (goal 1.5-2, due to platelet dysfunction), antiphospholipid syndrome, mitral regurgitation status post MitraClip, lung CA s/p chemo,radiation and YANIQUE lobectomy. She was recently seen at [facility] ED for evaluation of diverticulitis treated and CXR revealed left lower lobe consolidation versus atelectasis. She was placed on doxycycline x 7 days which she completed. She reports improvement overall however continues to report occasional wheeze and mild increase in dyspnea. We reviewed prior note from cardiology who recommended increasing her morning lasix dose however she has been reluctant to do so. Of note, she was seen by dermatology regarding BLE and discussed the possibility of CRPS. Will send referral to pain management to review treatment options. [facility] Medical History DVT (deep venous thrombosis) COPD (chronic obstructive pulmonary disease) Compression fracture of body of thoracic vertebra ASD (atrial septal defect) Pleuritic chest pain History of COVID-19 Chronic anticoagulation Hypothyroidism GERD (gastroesophageal reflux disease) Hyperlipidemia Hypertension Factor 5 Leiden mutation, heterozygous History of non-ST elevation myocardial infarction (NSTEMI) Hypoxia Anxiety PTSD (post-traumatic stress disorder) Hemoptysis Dyspnea Tracheobronchitis CLARA positive Diverticulitis Allergic bronchitis (HFpEF) heart failure with preserved ejection fraction Subarachnoid bleed Insomnia Anti-phospholipid antibody syndrome Hypogammaglobulinemia Chronic respiratory failure Arterial insufficiency of lower extremity Complex regional pain syndrome i of right lower limb Post herpetic neuralgia Pulmonary hypertension Pericardial effusion Pulmonary emboli Pleural effusion Radiation fibrosis of lung Pneumonitis Pulmonary nodules KANDY treated with BiPAP Lung cancer Surgical History History of colonoscopy History of lung surgery History of tonsillectomy History of hysterectomy S/P mitral valve clip implantation History of cardiac cath Family History Sister No problems noted. Mother Cardiovascular disease Daughter Tachycardia Other KANDY (obstructive sleep apnea) Social History (Updated 08/09/23 @ 13:29 by Lisa Guerrero LPN) Household Members: None Housing: House Do you presently have visiting nurse or other home services: Yes Unable to assess alcohol history related to: Unknown Alcohol intake: former Comment: stand by assist with ambulation Patient Tobacco Use Status: Never used Tobacco Smoked in Last 30 Days: No Second Hand Smoke Exposure: No Advance Directives Date on File: 06/15/22 service: No Current occupational status: retired Review of Systems Const Denies chills, Denies fever(s), Reports lethargy and Reports weakness ENT Reports Normal hearing present Card Denies chest pain with activity, Reports leg edema, Denies radiating jaw, neck or arm pain, Denies palpitations, Reports dyspnea and Reports dyspnea on exertion Resp Denies hemoptysis, Denies excessive phlegm production, Denies pain on inspiration, Reports dyspnea, Reports dyspnea on exertion and Reports wheezing Neuro Reports Normal hearing present and Reports weakness Endo Denies palpitations Aller/Immun Reports wheezing Physical Exam Vital Signs: Last Vital Signs Pulse 85 08/09/23 13:17 BP 116/64 08/09/23 13:17 Pulse Ox 95 08/09/23 13:17 Oxygen Delivery Method Nasal Cannula 08/09/23 13:17 Oxygen Flow Rate 2 08/09/23 13:17 BMI result Body Mass Index 22.3 Const General: cooperative, healthy appearing, comfortable, no acute distress, well developed and alert Orientation/consciousness: patient oriented x3 Limitations: no limitations HEENT Head: Yes normal to inspection, Yes normocephalic and Yes atraumatic Ears: hearing grossly normal bilaterally and external ears normal Neck Neck: Yes normal visual inspection and Yes no lymphadenopathy Lymphatic: no lymphadenopathy noted Chest Chest palpation & inspection: normal inspection of the chest Resp Effort & Inspection: normal respiratory effort, able to speak in complete sentences, no cough, no stridor, not tachypneic, no tripod positioning and no use of accessory muscles Auscultation: no rhonchi, no wheezes and diminished lung sounds Cardio Jugular venous distension: no JVD Rate: regular rate Rhythm: regular rhythm Skin Other: warm, dry Neuro General: patient oriented x3 Cranial nerves: Yes Normal hearing present Cognition (Neuro): normal cognition Gait exam (Neuro): Normal gait present Extrem Other: bilateral lower extremity edema, L>R, with erythema General: Yes normal to inspection Psych Appearance: grossly normal and well kempt Speech and movement: Normal speech and movement present and Clear speech present Affect: normal affect Attitude: cooperative Thought process: Normal thought process present Thought content: Normal thought content present Insight: Good insight present (Psych) Judgement: Good judgement present (Psych) Assessment & Plan Assessment & Plan (1) Pulmonary hypertension: Comment: severe based on RHC, moderate based on recent echo Code(s): I27.20 - Pulmonary hypertension, unspecified (2) Anxiety: Code(s): F41.9 - Anxiety disorder, unspecified (3) Right leg swelling: Code(s): M79.89 - Other specified soft tissue disorders (4) Lung cancer: Comment: (NSCLC - Adenocarcinoma Stae IIIA T2N2 - s/p LLL in 2008, chemo & XRT) Code(s): C34.90 - Malignant neoplasm of unspecified part of unspecified bronchus or lung Qualifiers: Laterality: left Lung location: upper lobe of lung Qualified Code(s): C34.12 - Malignant neoplasm of upper lobe, left bronchus or lung (5) Pulmonary nodules: Comment: growing RML nodule measuring 9mm, now resolved Code(s): R91.8 - Other nonspecific abnormal finding of lung field (6) Chronic respiratory failure: Code(s): J96.10 - Chronic respiratory failure, unspecified whether with hypoxia or hypercapnia Qualifiers: Respiratory failure complication: hypoxia and hypercapnia Qualified Code(s): J96.11 - Chronic respiratory failure with hypoxia; J96.12 - Chronic respiratory failure with hypercapnia (7) KANDY treated with BiPAP: Code(s): G47.33 - Obstructive sleep apnea (adult) (pediatric) (8) Radiation fibrosis of lung: Comment: C/B traction bronchiectasis and airway obstructions . Code(s): J70.1 - Chronic and other pulmonary manifestations due to radiation (9) COPD (chronic obstructive pulmonary disease): Code(s): J44.9 - Chronic obstructive pulmonary disease, unspecified Qualifiers: COPD type: chronic bronchitis Chronic bronchitis type: simple Qualified Code(s): J41.0 - Simple chronic bronchitis (10) Diastolic CHF: Code(s): I50.30 - Unspecified diastolic (congestive) heart failure Qualifiers: Heart failure chronicity: chronic Qualified Code(s): I50.32 - Chronic diastolic (congestive) heart failure Plan Jovana presents after recent ED evaluation and CXR which revealed pneumonia versus atelectasis. She was treated with doxyxcyline and was treated earlier in the month with vantin. She reports symptoms are moderately improved but continues with intermittent wheezing and an increase in dyspnea, however no increase in supplemental oxygen. Likely dyspnea is multifactorial, advised discussing lasix with protohistorian at upcoming appointment. Respiratory exam was unremarkable. Will send for CXR in 6-8 weeks to assess for resolution. She is aware if symptoms worsen to seek emergent care. She had questioned bleeding supplemental oxygen into BiPAP. Will send for overnight oximetry through [facility] to assess need for supplemental oxygen at night. This will be performed on 2L. We did discuss referral to pain management for likely CRPS of BLE. Patient with discoloration of skin, changes in skin texture, allodynia, hyperalgesia and edema. Vascular evaluation was reportedly unremarkable. Will enter this. Will follow up with Dr. Kelly at her regularly scheduled appointment. She is aware if she needs to be seen sooner to call. Orders: Orders XR chest 2V 08/09/23 J18.9 - Pneumonia, unspecified organism Overnight Pulse Oximetry Today G47.34 - Idiopathic sleep related nonobstructive alveolar hypoventilation Referrals Pain Management Referral G90.529 - Complex regional pain syndrome I of unspecified lower limb Coding Level of Care Code Est Pt Level 4 (35480) Diagnoses Pulmonary hypertension I27.20 Anxiety F41.9 Right leg swelling M79.89 Malignant neoplasm of upper lobe of left lung C34.12 Laterality: left Lung location: upper lobe of lung Pulmonary nodules R91.8 Chronic respiratory failure with hypoxia and hypercapnia J96.11; J96.12 Respiratory failure complication: hypoxia and hypercapnia KANDY treated with BiPAP G47.33 Radiation fibrosis of lung 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
[2023-08-09 13:17] VITALS: BP 116/64; PULSE 85; O2SAT 95; BMI 22.3
== END 2023-08-09 14:25 | disposition home or self-care (01) ==
PROVIDERS: PCP Internal Medicine; Visit Provider Nurse Practitioner Family
DX: I27.20 Pulmonary hypertension, unspecified (principal); F41.9 Anxiety disorder, unspecified; M79.89 Other specified soft tissue disorders; C34.12 Malignant neoplasm of upper lobe, left bronchus or lung; R91.8 Other nonspecific abnormal finding of lung field; J96.11 Chronic respiratory failure with hypoxia; J96.12 Chronic respiratory failure with hypercapnia; G47.33 Obstructive sleep apnea (adult) (pediatric); J70.1 Chronic and other pulmonary manifestations due to radiation; J41.0 Simple chronic bronchitis; I50.32 Chronic diastolic (congestive) heart failure
CPT/HCPCS: 99214

== ENCOUNTER → 2023-08-09 13:12 | Outpatient (BNVA) | payer MEDICARE, SELFPAY | PROVIDERS: PCP Internal Medicine; Visit Provider Nurse Practitioner Family | DX: I27.20 Pulmonary hypertension, unspecified (principal); R91.8 Other nonspecific abnormal finding of lung field; J96.11 Chronic respiratory failure with hypoxia; J96.12 Chronic respiratory failure with hypercapnia; J70.1 Chronic and other pulmonary manifestations due to radiation; J41.0 Simple chronic bronchitis; G47.33 Obstructive sleep apnea (adult) (pediatric); I50.30 Unspecified diastolic (congestive) heart failure; F41.9 Anxiety disorder, unspecified; M79.89 Other specified soft tissue disorders; Z85.118 Personal history of other malignant neoplasm of bronchus and lung; Z92.21 Personal history of antineoplastic chemotherapy; Z92.3 Personal history of irradiation | CPT/HCPCS: 99212 ==

== ENCOUNTER 2023-08-14 13:00 | Outpatient (AMB) | payer MEDICARE, SELFPAY ==
[2023-08-14 13:33] VITALS: BP 100/56; PULSE 70; BMI 23.1
--- NOTE | 2023-08-14 13:33 | A.OFFVIS_ITS ---
Intake Vital Signs 08/14/23 13:33 Height 5 ft 3 in Weight 130 lb 8.218 oz BMI 23.1 BP 100/56 L Blood Pressure Location Rt brachial Position Sitting Pulse 70 Pulse Source Pulse Oximeter Intake Visit Reasons: 4 mth fu Intake Note: pt its here for a 4 mnth f/up here in the office pt states that she its in pain everyehere in her body some shortness of breath. Infrastructure Solutions Architect Required: No Accompanied by: Self / Same As Patient Allergies avocado [AVOCADO] Allergy (Mild, Verified 08/09/23 13:22) ITCHY THROAT, RASH azithromycin [AZITHROMYCIN] Allergy (Mild, Verified 08/09/23 13:22) ITCHY THROAT, RASH barium iodide [BARIUM IODIDE] Allergy (Mild, Verified 08/09/23 13:22) ITCHY THROAT, RASH barium sulfate Allergy (Mild, Verified 08/09/23 13:22) Itch bee pollen [BEE STINGS] Allergy (Mild, Verified 08/09/23 13:22) ITCHY THROAT, RASH ciprofloxacin [From CIPRO] Allergy (Mild, Verified 08/09/23 13:22) ITCHY THROAT, RASH clarithromycin [From BIAXIN] Allergy (Mild, Verified 07/20/23 10:30) ITCHY THROAT, RASH diatrizoate meglumine [From GASTROGRAFIN] Allergy (Mild, Verified 08/09/23 13:22) ITCHY THROAT, RASH diatrizoate sodium [From GASTROGRAFIN] Allergy (Mild, Verified 08/09/23 13:22) ITCHY THROAT, RASH diclofenac [From VOLTAREN] Allergy (Mild, Verified 08/09/23 13:22) ITCHY THROAT, RASH erythromycin base [ERYTHROMYCIN BASE] Allergy (Mild, Verified 08/09/23 13:22) ITCHY THROAT, RASH gentamicin [GENTAMICIN] Allergy (Mild, Verified 08/09/23 13:22) ITCHY THROAT, RASH Iodinated Contrast Media [IVP DYE] Allergy (Mild, Verified 08/09/23 13:22) ITCHY THROAT, RASH levofloxacin [From LEVAQUIN] Allergy (Mild, Verified 08/09/23 13:22) ITCHY THROAT, RASH metronidazole [From FLAGYL] Allergy (Mild, Verified 08/09/23 13:22) ITCHY THROAT, RASH moxifloxacin [From AVELOX] Allergy (Mild, Verified 08/09/23 13:22) ITCHY THROAT, RASH Penicillins [PENICILLINS] Allergy (Mild, Verified 08/09/23 13:22) ITCHY THROAT, RASH shrimp [SHRIMP] Allergy (Mild, Verified 08/09/23 13:22) ITCHY THROAT, RASH Sulfa (Sulfonamide Antibiotics) [SULFA (SULFONAMIDE ANTIBIOTICS)] Allergy (Mild, Verified 08/09/23 13:22) ITCHY THROAT, RASH vancomycin [VANCOMYCIN] Allergy (Mild, Verified 08/09/23 13:22) ITCHY THROAT, RASH clindamycin Adverse Reaction (Intermediate, Verified 08/09/23 13:22) Unknown Medication List - Last Reconciled 08/14/23 by Luis Eduardo Cadet MD Advair HFA 230-21 mcg/actuation (fluticasone propion-salmeterol) 2 puffs inhalation BID 90 days NS albuterol sulfate 2.5 mg (3 mL) inhalation Q6H PRN 30 days CPAP (CPAP Machine/Device) As directed diazepam 5 mg PO BID epinephrine IM furosemide 40 mg PO BID levalbuterol tartrate 45 mcg/actuation (Xopenex HFA) 2 puffs inhalation Q6H PRN 90 days levocetirizine 5 mg PO DAILY 90 days levothyroxine (Synthroid) 50 mcg PO SUSA@0600 levothyroxine (Synthroid) 25 mcg PO MOTUWETHFR@0600 meclizine 25 mg PO TID PRN 14 days metoprolol succinate ER 50 mg (2 x 25 mg) PO BID 90 days montelukast 10 mg PO DAILY nebulizers As directed Oxygen Home Use As directed potassium chloride 20 mEq PO DAILY prednisone 2.5 mg PO Q OTHER DAY rosuvastatin 10 mg PO Q OTHER DAY trazodone 100 mg (2 x 50 mg) PO BEDTIME triamcinolone acetonide 0.1% 1 appl topical BID-TID warfarin (Jantoven) mg PO HPI HPI Comments History of Present Illness Details 78-year-old female complex medical issue s presenting follow-up. She recently was diagnosed with severe mitral valve regurgitation was felt not to be a good surgical candidate and underwent MitraClip. She had improvement in symptoms afterwards. She has advanced lung disease due to previous lung resection as well as radiation to the lungs. She also had pulmonary embolism in the past. She has pulmonary hypertension. She is presenting now because she was becoming more short of breath and had lower extremity edema. On her own she crease her furosemide to 40 mg over the last week or so. She said her breathing did not change with that strategy. It appears early May she was in the emergency department with shortness of breath a nd was diagnosed with left lower lobe pneumonia. She had some sharp left-sided chest pains which were pleuritic in nature likely due to underlying pneumonia. She was given antibiotics which she has completed. She is saying that her oxygen saturations the low when she is laying down. She does not use oxygen frequently. Specifically outside her home she does not use oxygen. She has tachycardia when she is ambulating which she has noticed but does not significantly get any palpitations. She continues to get short of breath with activities. She saw a pulmonary hypertension specialist and by her description she was told that her pulmonary hypertension was mostly due to mitral regurgitation. She is following with pulmonology at [place]. 12/29/22: Was brought in for urgent foll ow-up. She called and was complaining of palpitations and fast heart rates as high as 120 beats per minute and was also complaining of shortness of breath. It appears she was referred for echocardiography by pulmonology and this showed that her right ventricle is [id number] dilated, right atrium was severely dilated with small pericardial effusion as before but small to moderate pleural effusion was also noted. Previous iatrogenic ASD from transseptal puncture was noted as well mitral stenosis due to mitral clip with mean gradient of 8-9 mm Hg. Previously this was 7 mm Hg. The patient was previously advised to use oxygen when she is ambulating. Apparently she was out with her friends and while walking she was not using oxygen and started feeling shortness of breath and checked her pulse and it was 120 beats per minute. She is saying when she is using oxygen she does not get similar symptoms and has not had any tachycardia while using oxygen. She has also gained few lb over the last few days. She was sent for chest x-ray which is showing left basal pleural effusion as seen on the echocardiography also. She is taking Lasix 40 mg once a day. She is on metoprolol succinate 25 mg twice a day. 01/11/23: She returns for follow-up. She had Holter monitor on her and the day she came to return it she had significant palpitations and shortness of breath while walking to the Cardiology Department. She said she was not rushing and was walking at a slow pace. She said these symptoms improved afterwards and she did not have any for the palpitations walking back to her car. She was using oxygen. She is wearing oxygen 30/01 but is saying that she feels lousy and has not felt any difference in her dyspnea or palpitations. She has been using 40 mg twice a day of Lasix. Her blood pressure control is good. Previously we did not increase her Toprol XL despite seeing some degree of mitral stenosis on her echocardiogram which is iatrogenic due to MitraClip. She has been more sedentary and is quite frail and deconditioned. She is tearful that she is unable to do any of the activities she was able to do before. 02/13/23: She returns for follow-up. She was previously on 40 mg p.o. b.i.d. Lasix. She had called our office for lower extremity edema and Lasix dose was increased to 80 mg twice a day. Subsequent to that she called or office that she is dehydrated and was advised to take 80 mg in the morning and 40 in the afternoon. She had blood workup which showed hypokalemia and she was started on potassium supplements. She continues to get fatigue and SOB. She is using oxygen when sleeping and with ambulation. Continues to get tachycardia with ambulation. 04/26/2023: She returns for follow-up. She called us yesterday because she gained 3 lb over 3 days. She was taking 40 mg p.o. b.i.d. Lasix. She was advised to take an extra dose of Lasix yesterday and increase the Lasix to 80 mg in the morning today. She said she checked her weight today and was back at 128 lb which was her baseline. She is saying she has been short of breath and fatigue. Also she had upper back pain which moved to her chest early April and she went to [facility] where she had a chest CTA performed which did not show any evidence of dissection or pulmonary embolism. Pulmonary arteries were noticed to be dilated consistent with her known history of pulmon dulce hypertension. 08/14/2023: She returns for follow-up. S he had an episode of diverticulitis which was treated in the hospital. She said she went home and was getting some shortness of breath and wheezing and was advised to go back to the hospital and was treated for pneumonia also. She continues to have symptoms like before including chest tightness, fatigue and inability to exercise. She is on oxygen mostly at times. She complains of some edema in the lower extremity but nothing significant is noted on examination. [facility] Medical History DVT (deep venous thrombosis) COPD (chronic obstructive pulmonary disease) Compression fracture of body of thoracic vertebra ASD (atrial septal defect) Pleuritic chest pain History of COVID-19 Chronic anticoagulation Hypothyroidism GERD (gastroesophageal reflux disease) Hyperlipidemia Hypertension Factor 5 Leiden mutation, heterozygous History of non-ST elevation myocardial infarction (NSTEMI) Hypoxia Anxiety PTSD (post-traumatic stress disorder) Hemoptysis Dyspnea Tracheobronchitis CLARA positive Diverticulitis Allergic bronchitis (HFpEF) heart failure with preserved ejection fraction Subarachnoid bleed Insomnia Anti-phospholipid antibody syndrome Hypogammaglobulinemia Chronic respiratory failure Arterial insufficiency of lower extremity Complex regional pain syndrome i of right lower limb Post herpetic neuralgia Pulmonary hypertension Pericardial effusion Pulmonary emboli Pleural effusion Radiation fibrosis of lung Pneumonitis Pulmonary nodules KANDY treated with BiPAP Lung cancer Surgical History History of colonoscopy History of lung surgery History of tonsillectomy History of hysterectomy S/P mitral valve clip implantation History of cardiac cath Family History Sister No problems noted. Mother Cardiovascular disease Daughter Tachycardia Other KANDY (obstructive sleep apnea) Social History Household Members: None Housing: House Do you presently have visiting nurse or other home services: Yes Unable to assess alcohol history related to: Unknown Alcohol intake: former Comment: stand by assist with ambulation Patient Tobacco Use Status: Never used Tobacco Second Hand Smoke Exposure: No Advance Directives Date on File: 06/15/22 service: No Current occupational status: retired Review of Systems Const Denies chills, Denies fatigue, Denies fever(s), Denies frequent falls, Denies weakness, Denies weight gain and Denies weight loss ENT Denies dizziness Card Denies chest pain, Denies leg edema, Denies lightheadedness, Denies palpitations, Denies dyspnea and Denies dyspnea on exertion Resp Denies cough, Denies dyspnea and Denies dyspnea on exertion GI Denies hematochezia Musc Denies abnormal gait, Denies muscle weakness, Denies numbness, Denies radiating pain into limb and Denies tingling Neuro Denies abnormal gait, Denies dizziness, Denies frequent falls, Denies numbness, Denies tingling and Denies weakness Endo Denies fatigue and Denies palpitations Physical Exam Vital Signs: Last Vital Signs Pulse 70 08/14/23 13:33 BP 100/56 L 08/14/23 13:33 BMI result Body Mass Index 23.1 GENERAL APPEARANCE: In no distress. NECK/THYROID: no carotid bruit, no JVD. SKIN: no suspicious lesions, warm and dry. HEART: no murmurs, regular rate and rhythm, S1, S2 normal. LUNGS: clear to auscultation bilaterally. ABDOMEN: normal, bowel sounds present, soft, nontender, nondistended. EXTREMITIES: no clubbing, cyanosis. No significant edema. PERIPHERAL PULSES: equal. NEUROLOGIC: nonfocal, alert and oriented. Assessment & Plan Assessment & Plan (1) CAD (coronary artery disease): Code(s): I25.10 - Atherosclerotic heart disease of beaver coronary artery without angina pectoris (2) Diastolic CHF: Code(s): I50.30 - Unspecified diastolic (congestive) heart failure Qualifiers: Heart failure chronicity: chronic Qualified Code(s): I50.32 - Chronic diastolic (congestive) heart failure Plan 78-year-old female with complex cardiovascular and medical issues. She had mitral regurgitation and underwent MitraClip because she was not a surgical candidate. Has RV dysfunction as well as pulmonary hypertension which is due to lung disease including lung irradiation in the past. From heart failure point of view, she is stable. She is euvolemic at this point and I have advised her to continue same dose of Lasix 40 mg twice a day. She has followed up with Dr. Camarillo at [facility] who has asked her to see him as needed from me and onward. She is due to get a repeat echocardiogram at [facility]. I have explained to her that her chest tightness is chronic and despite angiography done twice no significant coronary disease is there and she hardly has a 50% mid LAD stenosis which should not give her any chest discomfort at rest. Thank you for allowing me to participate in the care of your patient. Please feel free to contact me if you have any questions. Orders: Orders Lipid Panel Today I25.10 - Atherosclerotic heart disease of beaver coronary artery without angina pectoris Medications: New metoprolol succinate ER (Toprol XL) 50 mg PO BID 120 tabs 3RF Discontinued metoprolol succinate ER Discontinued Reason: Doctor's Order 50 mg (2 x 25 mg) PO BID 360 tabs 3RF 90 days Coding Level of Care Code Est Pt Level 4 (79865) Diagnoses CAD (coronary artery disease) I25.10 Chronic diastolic congestive heart failure I50.32 Heart failure chronicity: chronic
== END 2023-08-14 14:24 | disposition home or self-care (01) ==
PROVIDERS: PCP Internal Medicine; Visit Provider Internal Medicine Cardiovascular Disease
DX: I25.10 Atherosclerotic heart disease of native coronary artery without angina pectoris (principal); I50.32 Chronic diastolic (congestive) heart failure
CPT/HCPCS: 99214

== ENCOUNTER → 2023-08-14 13:00 | Outpatient (BNVA) | payer MEDICARE, SELFPAY | PROVIDERS: PCP Internal Medicine; Visit Provider Internal Medicine Cardiovascular Disease | DX: I25.10 Atherosclerotic heart disease of native coronary artery without angina pectoris (principal); I50.32 Chronic diastolic (congestive) heart failure; Z79.899 Other long term (current) drug therapy | CPT/HCPCS: 99212 ==

== ENCOUNTER 2023-08-24 11:07 | Outpatient (AMB) | payer MEDICARE, SELFPAY ==
--- NOTE | 2023-08-24 11:09 | MHC.OFFVIS ---
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 Orientation/consciousness: patient oriented x3 HEENT Head: Yes atraumatic Eyes General: appearance normal, both eyes and all related structures Neck Neck: Yes trachea midline, Yes supple and Yes no JVD Chest Chest palpation & inspection: normal inspection of the chest Resp Effort & Inspection: normal respiratory effort, no cough and prolonged expiratory phase Auscultation: no rales, no rhonchi, no wheezes and diminished lung sounds Cardio Rate: regular rate Rhythm: regular rhythm Heart sounds: S1 normal heart sound present, S2 normal heart sound present and Abnormal heart opening sounds loud S2 GI Auscultation: normal bowel sounds Skin General skin exam: purpura and scars Neuro General: patient oriented x3 and no focal motor deficits Extrem General: Yes no clubbing, cyanosis or edema Assessment & Plan Assessment & Plan (1) Lung cancer: Comment: (NSCLC - Adenocarcinoma Stae IIIA T2N2 - s/p LLL in 2007, chemo & XRT) Code(s): C34.90 - Malignant neoplasm of unspecified part of unspecified bronchus or lung Qualifiers: Laterality: left Lung location: upper lobe of lung Qualified Code(s): C34.12 - Malignant neoplasm of upper lobe, left bronchus or lung (2) Pulmonary hypertension: Comment: severe based on RHC, moderate based on recent echo Code(s): I27.20 - Pulmonary hypertension, unspecified (3) Pulmonary nodules: Comment: growing RML nodule measuring 9mm, now resolved Code(s): R91.8 - Other nonspecific abnormal finding of lung field (4) Chronic respiratory failure: Code(s): J96.10 - Chronic respiratory failure, unspecified whether with hypoxia or hypercapnia Qualifiers: Respiratory failure complication: hypoxia and hypercapnia Qualified Code(s): J96.11 - Chronic respiratory failure with hypoxia; J96.12 - Chronic respiratory failure with hypercapnia (5) KANDY treated with BiPAP: Code(s): G47.33 - Obstructive sleep apnea (adult) (pediatric) (6) Radiation fibrosis of lung: Comment: C/B traction bronchiectasis and airway obstructions . Code(s): J70.1 - Chronic and other pulmonary manifestations due to radiation (7) COPD (chronic obstructive pulmonary disease): Code(s): J44.9 - Chronic obstructive pulmonary disease, unspecified Qualifiers: COPD type: chronic bronchitis Chronic bronchitis type: simple Qualified Code(s): J41.0 - Simple chronic bronchitis (8) Diastolic CHF: Code(s): I50.30 - Unspecified diastolic (congestive) heart failure Qualifiers: Heart failure chronicity: chronic Qualified Code(s): I50.32 - Chronic diastolic (congestive) heart failure (9) (HFpEF) heart failure with preserved ejection fraction: Code(s): I50.30 - Unspecified diastolic (congestive) heart failure Qualifiers: Heart failure chronicity: chronic Qualified Code(s): I50.32 - Chronic diastolic (congestive) heart failure (10) Abdominal pain: Comment: h/o diverticulitis Code(s): R10.9 - Unspecified abdominal pain Qualifiers: Abdominal location: left lower quadrant Qualified Code(s): R10.32 - Left lower quadrant pain (11) Dental abscess: Code(s): K04.7 - Periapical abscess without sinus Plan prednisone 2.5 mg Ambien for sleep continue Advair ASHA as needed CXR continue ASHA (xopenex) as needed CPT with acapella valve fluticasone Oxygen 2L/pulse with activity and sleep. POC Inogen G5 duiresis as tolerated continue BIPAP at night with O2. AHI elevated->adjusted BIPAP 13/9 to 15/10 2L, awaitnig overnight oximetry ECHO at [facility] F/U 6-8 weeks Orders: Orders XR chest 2V Today Medications: New doxycycline monohydrate 100 mg PO BID 14 days 28 tabs 0RF Coding Level of Care Code Est Pt Level 5 (72698) Diagnoses Malignant neoplasm of upper lobe of left lung C34.12 Laterality: left Lung location: upper lobe of lung Pulmonary hypertension I27.20 Pulmonary nodules R91.8 Chronic respiratory failure with hypoxia and hypercapnia J96.11; J96.12 Respiratory failure complication: hypoxia and hypercapnia KANDY treated with BiPAP G47.33 Radiation fibrosis of lung 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 Chronic heart failure with preserved ejection fraction I50.32 Heart failure chronicity: chronic Left lower quadrant abdominal pain R10.32 Abdominal location: left lower quadrant Dental abscess K04.7 Time Spent (min) 60
[2023-08-24 11:10] VITALS: BP 118/58; PULSE 87; O2SAT 96; BMI 23.0
== END 2023-08-24 12:02 | disposition home or self-care (01) ==
PROVIDERS: PCP Internal Medicine; Visit Provider Hospitalist
DX: C34.12 Malignant neoplasm of upper lobe, left bronchus or lung (principal); I27.20 Pulmonary hypertension, unspecified; J96.11 Chronic respiratory failure with hypoxia; J96.12 Chronic respiratory failure with hypercapnia; G47.33 Obstructive sleep apnea (adult) (pediatric); J70.1 Chronic and other pulmonary manifestations due to radiation; J41.0 Simple chronic bronchitis; I50.32 Chronic diastolic (congestive) heart failure; R10.32 Left lower quadrant pain; K04.7 Periapical abscess without sinus
CPT/HCPCS: 99215

== ENCOUNTER → 2023-08-24 11:07 | Outpatient (BNVA) | payer MEDICARE, SELFPAY | PROVIDERS: PCP Internal Medicine; Visit Provider Hospitalist | DX: C34.12 Malignant neoplasm of upper lobe, left bronchus or lung (principal); J96.12 Chronic respiratory failure with hypercapnia; I27.20 Pulmonary hypertension, unspecified; R91.8 Other nonspecific abnormal finding of lung field; G47.33 Obstructive sleep apnea (adult) (pediatric); J70.1 Chronic and other pulmonary manifestations due to radiation; J41.0 Simple chronic bronchitis; I50.32 Chronic diastolic (congestive) heart failure; K04.7 Periapical abscess without sinus | CPT/HCPCS: 99212 ==

== ENCOUNTER 2023-08-25 10:46 | Outpatient (AMB) | payer MEDICARE, SELFPAY ==
--- NOTE | 2023-08-25 11:01 | A.OFFVIS_ITS ---
Intake Vital Signs 08/25/23 11:15 Height 5 ft 3 in Weight 129 lb BMI 22.8 BP 120/60 Blood Pressure Location Rt brachial Position Sitting Pulse 83 Pulse Source Pulse Oximeter Pulse Oximetry (%) 99 Oxygen Delivery Method Nasal Cannula Oxygen Flow Rate 2 Intake Visit Reasons: Complex reg. pain synd. I of unspec. lower limb Allergies avocado [AVOCADO] Allergy (Mild, Verified 08/25/23 11:16) ITCHY THROAT, RASH azithromycin [AZITHROMYCIN] Allergy (Mild, Verified 08/25/23 11:16) ITCHY THROAT, RASH barium iodide [BARIUM IODIDE] Allergy (Mild, Verified 08/25/23 11:16) ITCHY THROAT, RASH barium sulfate Allergy (Mild, Verified 08/25/23 11:16) Itch bee pollen [BEE STINGS] Allergy (Mild, Verified 08/25/23 11:16) ITCHY THROAT, RASH ciprofloxacin [From CIPRO] Allergy (Mild, Verified 08/25/23 11:16) ITCHY THROAT, RASH clarithromycin [From BIAXIN] Allergy (Mild, Verified 08/25/23 11:16) ITCHY THROAT, RASH diatrizoate meglumine [From GASTROGRAFIN] Allergy (Mild, Verified 08/25/23 11:16) ITCHY THROAT, RASH diatrizoate sodium [From GASTROGRAFIN] Allergy (Mild, Verified 08/25/23 11:16) ITCHY THROAT, RASH diclofenac [From VOLTAREN] Allergy (Mild, Verified 08/25/23 11:16) ITCHY THROAT, RASH erythromycin base [ERYTHROMYCIN BASE] Allergy (Mild, Verified 08/25/23 11:16) ITCHY THROAT, RASH gentamicin [GENTAMICIN] Allergy (Mild, Verified 08/25/23 11:16) ITCHY THROAT, RASH Iodinated Contrast Media [IVP DYE] Allergy (Mild, Verified 08/25/23 11:16) ITCHY THROAT, RASH levofloxacin [From LEVAQUIN] Allergy (Mild, Verified 08/25/23 11:16) ITCHY THROAT, RASH metronidazole [From FLAGYL] Allergy (Mild, Verified 08/25/23 11:16) ITCHY THROAT, RASH moxifloxacin [From AVELOX] Allergy (Mild, Verified 08/25/23 11:16) ITCHY THROAT, RASH Penicillins [PENICILLINS] Allergy (Mild, Verified 08/25/23 11:16) ITCHY THROAT, RASH shrimp [SHRIMP] Allergy (Mild, Verified 08/25/23 11:16) ITCHY THROAT, RASH Sulfa (Sulfonamide Antibiotics) [SULFA (SULFONAMIDE ANTIBIOTICS)] Allergy (Mild, Verified 08/25/23 11:16) ITCHY THROAT, RASH vancomycin [VANCOMYCIN] Allergy (Mild, Verified 08/25/23 11:16) ITCHY THROAT, RASH clindamycin Adverse Reaction (Intermediate, Verified 08/25/23 11:16) Unknown HPI Complex reg. pain synd. I of unspec. lower limb HPI Details 78-year-old female who presents today to the office for an evaluation of complex regional pain syndrome. Her medical history includes COPD, KANDY, pulmonary HTN, history of pulmonary emboli on chronic anticoagulation, hypothyroidism, CHF, chronic bronchitis, vertigo, history of diverticulitis, lung CA Stage IIIA s/o neoadjuvant chemoradiation, and left upper lobe lobectomy. She has a history of a burst hematoma in her right leg in ~2019 and multiple vertebral fractures in the past. She states that her pain started about three years ago and has been progressively worsening since then. She reports bilateral hip pain (L>R). She reports pain with daily activity, especially prolonged walking, using stairs, or lying on her left side. She states that her pain is localized in the joints and on the lateral aspect of her hips. She denies any groin pain. She has had difficulty walking for about 10 minutes. She has tried physical therapy and massage therapy without benefit. She has been using Bengay to some benefit. She has tried gabapentin in the past for neuropathy with minimal benefit. She reports having pain throughout her whole body. She reports shoulder pain. She also has the tenderness to touch her legs. She reports occasional numbness in her feet. She cannot wear high heels or any shoes other than sneakers. She has tried triamcinolone steroid cream with minimal benefit. The patient was seen in the ER on 07/28/23 for left lower quadrant abdominal pain. She underwent a CT scan, which confirmed diverticulitis. She has tried cefpodoxime without any benefit. She is currently on Coumadin. [facility] Medical History DVT (deep venous thrombosis) COPD (chronic obstructive pulmonary disease) Compression fracture of body of thoracic vertebra ASD (atrial septal defect) Pleuritic chest pain History of COVID-19 Chronic anticoagulation Hypothyroidism GERD (gastroesophageal reflux disease) Hyperlipidemia Hypertension Factor 5 Leiden mutation, heterozygous History of non-ST elevation myocardial infarction (NSTEMI) Hypoxia Anxiety PTSD (post-traumatic stress disorder) Hemoptysis Dyspnea Tracheobronchitis CLARA positive Diverticulitis Allergic bronchitis (HFpEF) heart failure with preserved ejection fraction Subarachnoid bleed Insomnia Anti-phospholipid antibody syndrome Hypogammaglobulinemia Chronic respiratory failure Arterial insufficiency of lower extremity Complex regional pain syndrome i of right lower limb Post herpetic neuralgia Pulmonary hypertension Pericardial effusion Pulmonary emboli Pleural effusion Radiation fibrosis of lung Pneumonitis Pulmonary nodules KANDY treated with BiPAP Lung cancer Surgical History History of colonoscopy History of lung surgery History of tonsillectomy History of hysterectomy S/P mitral valve clip implantation History of cardiac cath Family History Sister No problems noted. Mother Cardiovascular disease Daughter Tachycardia Other KANDY (obstructive sleep apnea) Social History Household Members: None Housing: House Do you presently have visiting nurse or other home services: Yes Unable to assess alcohol history related to: Unknown Alcohol intake: former Comment: stand by assist with ambulation Patient Tobacco Use Status: Never used Tobacco Second Hand Smoke Exposure: No Advance Directives Date on File: 06/15/22 service: No Current occupational status: retired Review of Systems Const All systems reviewed & are unremarkable except as noted in HPI and below Physical Exam Vital Signs: Last Vital Signs Pulse 83 08/25/23 11:15 BP 120/60 08/25/23 11:15 Pulse Ox 99 08/25/23 11:15 Oxygen Delivery Method Nasal Cannula 08/25/23 11:15 Oxygen Flow Rate 2 08/25/23 11:15 BMI result Body Mass Index 22.8 General: Appears afebrile. Alert and oriented. Mood and affect appropriate. Follows and participates in conversation appropriately. Respiratory effort is unlabored. Able to transition from sit to stand unassisted. Ambulates with bilaterally normal heel strike and toe off. There are trophic changes of the skin on bilateral lower extremities. There is allodynia to touch. Results Reviewed Results Reviewed: No imaging is available for review. Assessment & Plan Assessment & Plan (1) CRPS (complex regional pain syndrome), lower limb: Code(s): G90.529 - Complex regional pain syndrome I of unspecified lower limb (2) Bilateral hip pain: Code(s): M25.551 - Pain in right hip; M25.552 - Pain in left hip (3) Complex medical condition: Code(s): Z78.9 - Other specified health status (4) Musculoskeletal back pain: Code(s): M54.9 - Dorsalgia, unspecified (5) Bilateral shoulder pain: Code(s): M25.511 - Pain in right shoulder; M25.512 - Pain in left shoulder Plan 78-year-old female with complicated medical history including multiple hematomas and thromboembolism episodes in setting of factor 5 Leiden deficiency now on chronic anticoagulation with Coumadin presenting with multiple pain issues including bilateral shoulder pain, upper back pain, neck and lower back pain, bilateral leg pain that started with the right leg after a hematoma evacuation, progressed into CRPS of the right lower extremity and is now progressed towards the left lower extremity. She was previously seen by my colleague and suggested trial of spinal cord stimulation but she has not interested in any kind of implantable therapy. She has also not interested in implantable peripheral nerve stimulators. We also discussed that we could undertake injections such as shoulder injections or lumbar sympathetic blocks but that would entail her stopping and starting her Coumadin and in the past she has had adverse effects related to anticoagulation. We discussed dot invasive modalities including ketamine infusions where available, TENS therapy and magnetic nerve stimulation. Patient will look into providers for these modalities and see if she can utilize them. If she decides to proceed with any of the implantable therapies for CRPS, she will get back in touch with us. Scribed for Dr. Mcdonald by Brett Frias, manager of medical, on 08/25/2023. I, Dr. Mcdonald, have personally reviewed and agree with the information entered by the scribe. Coding Level of Care Code Est Pt Level 4 (65201) Diagnoses CRPS (complex regional pain syndrome), lower limb G90.529 Bilateral hip pain M25.551; M25.552 Complex medical condition Z78.9 Musculoskeletal back pain M54.9 Bilateral shoulder pain M25.511; M25.512
[2023-08-25 11:15] VITALS: BP 120/60; PULSE 83; O2SAT 99; BMI 22.8
== END 2023-08-25 12:01 | disposition home or self-care (01) ==
PROVIDERS: PCP Internal Medicine; Referring Provider Nurse Practitioner Family; Visit Provider Internal Medicine
DX: G90.529 Complex regional pain syndrome I of unspecified lower limb (principal); M25.551 Pain in right hip; M25.552 Pain in left hip; Z78.9 Other specified health status; M54.9 Dorsalgia, unspecified; M25.511 Pain in right shoulder; M25.512 Pain in left shoulder
CPT/HCPCS: 99214

== ENCOUNTER → 2023-08-25 10:46 | Outpatient (BNVA) | payer MEDICARE, SELFPAY | PROVIDERS: PCP Internal Medicine; Referring Provider Nurse Practitioner Family; Visit Provider Internal Medicine | DX: G90.529 Complex regional pain syndrome I of unspecified lower limb (principal); M25.551 Pain in right hip; M25.552 Pain in left hip; M54.9 Dorsalgia, unspecified; M25.511 Pain in right shoulder; M25.512 Pain in left shoulder; Z78.9 Other specified health status | CPT/HCPCS: 99212 ==

== ENCOUNTER 2023-09-01 13:58 | Outpatient (AMB) | payer MEDICARE, SELFPAY ==
[2023-09-01 14:04] VITALS: BP 114/64; PULSE 88; O2SAT 97; BMI 23.2
--- NOTE | 2023-09-01 14:04 | MHC.OFFVIS ---
Intake Vital Signs 09/01/23 14:04 Height 5 ft 3 in Weight 131 lb BMI 23.2 BP 114/64 Blood Pressure Location Rt brachial Position Sitting Pulse 88 Pulse Source Pulse Oximeter Pulse Oximetry (%) 97 Oxygen Delivery Method Room Air Intake Visit Reasons: Dry cough Registered Public Surveyor Required: No It Help Desk Analyst: It Help Desk Analyst offered & declined Accompanied by: Self / Same As Patient Allergies avocado [AVOCADO] Allergy (Mild, Verified 09/01/23 14:15) ITCHY THROAT, RASH azithromycin [AZITHROMYCIN] Allergy (Mild, Verified 09/01/23 14:15) ITCHY THROAT, RASH barium iodide [BARIUM IODIDE] Allergy (Mild, Verified 09/01/23 14:15) ITCHY THROAT, RASH barium sulfate Allergy (Mild, Verified 09/01/23 14:15) Itch bee pollen [BEE STINGS] Allergy (Mild, Verified 09/01/23 14:15) ITCHY THROAT, RASH ciprofloxacin [From CIPRO] Allergy (Mild, Verified 09/01/23 14:15) ITCHY THROAT, RASH clarithromycin [From BIAXIN] Allergy (Mild, Verified 09/01/23 14:15) ITCHY THROAT, RASH diatrizoate meglumine [From GASTROGRAFIN] Allergy (Mild, Verified 09/01/23 14:15) ITCHY THROAT, RASH diatrizoate sodium [From GASTROGRAFIN] Allergy (Mild, Verified 09/01/23 14:15) ITCHY THROAT, RASH diclofenac [From VOLTAREN] Allergy (Mild, Verified 09/01/23 14:15) ITCHY THROAT, RASH erythromycin base [ERYTHROMYCIN BASE] Allergy (Mild, Verified 09/01/23 14:15) ITCHY THROAT, RASH gentamicin [GENTAMICIN] Allergy (Mild, Verified 09/01/23 14:15) ITCHY THROAT, RASH Iodinated Contrast Media [IVP DYE] Allergy (Mild, Verified 09/01/23 14:15) ITCHY THROAT, RASH levofloxacin [From LEVAQUIN] Allergy (Mild, Verified 09/01/23 14:15) ITCHY THROAT, RASH metronidazole [From FLAGYL] Allergy (Mild, Verified 09/01/23 14:15) ITCHY THROAT, RASH moxifloxacin [From AVELOX] Allergy (Mild, Verified 09/01/23 14:15) ITCHY THROAT, RASH Penicillins [PENICILLINS] Allergy (Mild, Verified 09/01/23 14:15) ITCHY THROAT, RASH shrimp [SHRIMP] Allergy (Mild, Verified 09/01/23 14:15) ITCHY THROAT, RASH Sulfa (Sulfonamide Antibiotics) [SULFA (SULFONAMIDE ANTIBIOTICS)] Allergy (Mild, Verified 09/01/23 14:15) ITCHY THROAT, RASH vancomycin [VANCOMYCIN] Allergy (Mild, Verified 09/01/23 14:15) ITCHY THROAT, RASH clindamycin Adverse Reaction (Intermediate, Verified 09/01/23 14:15) Unknown Medication List - Last Reconciled 09/01/23 by Lisa Guerrero LPN Advair HFA 230-21 mcg/actuation (fluticasone propion-salmeterol) 2 puffs inhalation BID 90 days NS albuterol sulfate 2.5 mg (3 mL) inhalation Q6H PRN 30 days CPAP (CPAP Machine/Device) As directed diazepam 5 mg PO BID doxycycline monohydrate 100 mg PO BID 14 days epinephrine IM furosemide 40 mg PO BID 90 days levocetirizine 5 mg PO DAILY 90 days levothyroxine (Synthroid) 25 mcg PO MOTUWETHFR@0600 meclizine 25 mg PO TID PRN 14 days metoprolol succinate ER (Toprol XL) 50 mg PO BID montelukast 10 mg PO DAILY nebulizers As directed Oxygen Home Use As directed potassium chloride 20 mEq PO DAILY prednisone 2.5 mg PO Q OTHER DAY rosuvastatin 10 mg PO Q OTHER DAY trazodone 100 mg (2 x 50 mg) PO BEDTIME triamcinolone acetonide 0.1% topical triamcinolone acetonide 0.1% 1 appl topical BID-TID warfarin (Jantoven) mg PO HPI Dry cough HPI Details Jovana is an 78 year old female followed for COPD, KANDY on BiPAP, moderate to severe pulmonary HTN (RHC performed in the past), prior pulmonary emboli on chronic anticoagulation (goal 1.5-2, due to platelet dysfunction), antiphospholipid syndrome, mitral regurgitation status post MitraClip, lung CA s/p chemo,radiation and YANIQUE lobectomy. She was recently evaluted by Dr. Kelly on 08/24 with a harsh cough, treated with doxycyline and sent for a CXR. Today she presents for follow up on cough. She states the cough is improving, occasionally with white foamy sputum. She denies any worsening of dyspnea or need for increased supplemental oxygen, currently using 2L. She reports very infrequent wheeze which resolves with a nebulizer treatment. She denies chest congestion, fever or chills. She reports persistent sensation of chest fullness which may be related to pulmonary hypertension, as she recently saw cardiology who feels symptom is unlikely cardiac related. Of note, she recently had an echo at [facility] on Monday, will attempt obtain report for upcoming appointment with Dr. Kelly. [facility] Medical History DVT (deep venous thrombosis) COPD (chronic obstructive pulmonary disease) Compression fracture of body of thoracic vertebra ASD (atrial septal defect) Pleuritic chest pain History of COVID-19 Chronic anticoagulation Hypothyroidism GERD (gastroesophageal reflux disease) Hyperlipidemia Hypertension Factor 5 Leiden mutation, heterozygous History of non-ST elevation myocardial infarction (NSTEMI) Hypoxia Anxiety PTSD (post-traumatic stress disorder) Hemoptysis Dyspnea Tracheobronchitis CLARA positive Diverticulitis Allergic bronchitis (HFpEF) heart failure with preserved ejection fraction Subarachnoid bleed Insomnia Anti-phospholipid antibody syndrome Hypogammaglobulinemia Chronic respiratory failure Arterial insufficiency of lower extremity Complex regional pain syndrome i of right lower limb Post herpetic neuralgia Pulmonary hypertension Pericardial effusion Pulmonary emboli Pleural effusion Radiation fibrosis of lung Pneumonitis Pulmonary nodules KANDY treated with BiPAP Lung cancer Surgical History History of colonoscopy History of lung surgery History of tonsillectomy History of hysterectomy S/P mitral valve clip implantation History of cardiac cath Family History Sister No problems noted. Mother Cardiovascular disease Daughter Tachycardia Other KANDY (obstructive sleep apnea) Social History Household Members: None Housing: House Do you presently have visiting nurse or other home services: Yes Unable to assess alcohol history related to: Unknown Alcohol intake: former Comment: stand by assist with ambulation Patient Tobacco Use Status: Never used Tobacco Second Hand Smoke Exposure: No Advance Directives Date on File: 06/15/22 service: No Current occupational status: retired Review of Systems Const Denies chills, Denies fever(s), Reports lethargy and Reports weakness ENT Reports Normal hearing present Card Denies chest pain with activity, Denies radiating jaw, neck or arm pain, Denies palpitations, Reports dyspnea and Reports dyspnea on exertion Resp Denies hemoptysis, Denies excessive phlegm production, Denies pain on inspiration, Reports dyspnea, Reports dyspnea on exertion and Reports wheezing Neuro Reports Normal hearing present and Reports weakness Endo Denies palpitations Aller/Immun Reports wheezing Physical Exam Vital Signs: Last Vital Signs Pulse 88 09/01/23 14:04 BP 114/64 09/01/23 14:04 Pulse Ox 97 09/01/23 14:04 Oxygen Delivery Method Room Air 09/01/23 14:04 BMI result Body Mass Index 23.2 Const General: cooperative, healthy appearing, comfortable, no acute distress, well developed and alert Orientation/consciousness: patient oriented x3 HEENT Head: Yes normal to inspection, Yes normocephalic and Yes atraumatic Ears: hearing grossly normal bilaterally and external ears normal Neck Neck: Yes normal visual inspection and Yes no lymphadenopathy Lymphatic: no lymphadenopathy noted Chest Chest palpation & inspection: normal inspection of the chest Resp Effort & Inspection: normal respiratory effort, able to speak in complete sentences, no cough, no stridor, not tachypneic, no tripod positioning and no use of accessory muscles Auscultation: no rhonchi, no wheezes and diminished lung sounds Cardio Jugular venous distension: no JVD Rate: regular rate Rhythm: regular rhythm Skin Other: warm, dry Neuro General: patient oriented x3 Cranial nerves: Yes Normal hearing present Cognition (Neuro): normal cognition Extrem Other: trace bilateral lower extremity edema, L>R, with erythema General: Yes normal to inspection Psych Appearance: grossly normal and well kempt Speech and movement: Normal speech and movement present and Clear speech present Affect: normal affect Attitude: cooperative Thought process: Normal thought process present Thought content: Normal thought content present Insight: Good insight present (Psych) Judgement: Good judgement present (Psych) Assessment & Plan Assessment & Plan (1) Pulmonary hypertension: Comment: severe based on RHC, moderate based on recent echo Code(s): I27.20 - Pulmonary hypertension, unspecified (2) Anxiety: Code(s): F41.9 - Anxiety disorder, unspecified (3) Lung cancer: Code(s): C34.90 - Malignant neoplasm of unspecified part of unspecified bronchus or lung Qualifiers: Laterality: left Lung location: upper lobe of lung Qualified Code(s): C34.12 - Malignant neoplasm of upper lobe, left bronchus or lung (4) Pulmonary nodules: Code(s): R91.8 - Other nonspecific abnormal finding of lung field (5) Chronic respiratory failure: Code(s): J96.10 - Chronic respiratory failure, unspecified whether with hypoxia or hypercapnia Qualifiers: Respiratory failure complication: hypoxia and hypercapnia Qualified Code(s): J96.11 - Chronic respiratory failure with hypoxia; J96.12 - Chronic respiratory failure with hypercapnia (6) KANDY treated with BiPAP: Code(s): G47.33 - Obstructive sleep apnea (adult) (pediatric) (7) Radiation fibrosis of lung: Code(s): J70.1 - Chronic and other pulmonary manifestations due to radiation (8) COPD (chronic obstructive pulmonary disease): Code(s): J44.9 - Chronic obstructive pulmonary disease, unspecified Qualifiers: COPD type: chronic bronchitis Chronic bronchitis type: simple Qualified Code(s): J41.0 - Simple chronic bronchitis (9) Diastolic CHF: Code(s): I50.30 - Unspecified diastolic (congestive) heart failure Qualifiers: Heart failure chronicity: chronic Qualified Code(s): I50.32 - Chronic diastolic (congestive) heart failure Plan Jovana presents with improvement in cough after starting Doxycyline, reviewed CXR which was unchanged from 05/01.. Advised to continue doxycycline until complete. No wheezing or rhonchi appreciated today. She also reported a sensation of chest fullness, and had previously reported this to legal secretary receptionist who felt there was no significant coronary artery disease on angiography that could account of chest discomfort. She was evaluated with recent echo, will request from [facility]. Patient is aware that any symptoms of chest pain should be evaluated in the ED. Will follow up with Dr. Kelly at her regularly scheduled appointment. She is aware if she needs to be seen sooner to call. Coding Level of Care Code Est Pt Level 4 (14771) Diagnoses Pulmonary hypertension I27.20 Anxiety F41.9 Malignant neoplasm of upper lobe of left lung C34.12 Laterality: left Lung location: upper lobe of lung Pulmonary nodules R91.8 Chronic respiratory failure with hypoxia and hypercapnia J96.11; J96.12 Respiratory failure complication: hypoxia and hypercapnia KANDY treated with BiPAP G47.33 Radiation fibrosis of lung 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
== END 2023-09-01 14:44 | disposition home or self-care (01) ==
PROVIDERS: PCP Internal Medicine; Visit Provider Nurse Practitioner Family
DX: I27.20 Pulmonary hypertension, unspecified (principal); F41.9 Anxiety disorder, unspecified; C34.12 Malignant neoplasm of upper lobe, left bronchus or lung; R91.8 Other nonspecific abnormal finding of lung field; J96.11 Chronic respiratory failure with hypoxia; J96.12 Chronic respiratory failure with hypercapnia; G47.33 Obstructive sleep apnea (adult) (pediatric); J70.1 Chronic and other pulmonary manifestations due to radiation; J41.0 Simple chronic bronchitis; I50.32 Chronic diastolic (congestive) heart failure
CPT/HCPCS: 99214

== ENCOUNTER → 2023-09-01 13:58 | Outpatient (BNVA) | payer MEDICARE, SELFPAY | PROVIDERS: PCP Internal Medicine; Visit Provider Nurse Practitioner Family | DX: I27.20 Pulmonary hypertension, unspecified (principal); R91.8 Other nonspecific abnormal finding of lung field; J96.11 Chronic respiratory failure with hypoxia; J96.12 Chronic respiratory failure with hypercapnia; J70.1 Chronic and other pulmonary manifestations due to radiation; J41.0 Simple chronic bronchitis; I50.32 Chronic diastolic (congestive) heart failure; F41.9 Anxiety disorder, unspecified; G47.33 Obstructive sleep apnea (adult) (pediatric); C34.12 Malignant neoplasm of upper lobe, left bronchus or lung | CPT/HCPCS: 99212 ==

== ENCOUNTER 2023-09-04 13:03 | Outpatient (AMB) | payer MEDICARE, SELFPAY ==
--- NOTE | 2023-09-04 13:16 | A.OFFVIS_ITS ---
Intake Vital Signs 09/04/23 13:17 09/04/23 13:24 Height 5 ft 3 in Weight 130 lb 8.218 oz BMI 23.1 23.1 BP 106/52 L Blood Pressure Location Lt brachial Position Sitting Pulse 79 Pulse Source Pulse Oximeter Intake Visit Reasons: sob/ fast heart rate Intake Note: pt its here for SOB/ pt states that she its no longer have the SOB, having pain in the shoulders. Allergies avocado [AVOCADO] Allergy (Mild, Verified 09/01/23 14:15) ITCHY THROAT, RASH azithromycin [AZITHROMYCIN] Allergy (Mild, Verified 09/01/23 14:15) ITCHY THROAT, RASH barium iodide [BARIUM IODIDE] Allergy (Mild, Verified 09/01/23 14:15) ITCHY THROAT, RASH barium sulfate Allergy (Mild, Verified 09/01/23 14:15) Itch bee pollen [BEE STINGS] Allergy (Mild, Verified 09/01/23 14:15) ITCHY THROAT, RASH ciprofloxacin [From CIPRO] Allergy (Mild, Verified 09/01/23 14:15) ITCHY THROAT, RASH clarithromycin [From BIAXIN] Allergy (Mild, Verified 09/01/23 14:15) ITCHY THROAT, RASH diatrizoate meglumine [From GASTROGRAFIN] Allergy (Mild, Verified 09/01/23 14:15) ITCHY THROAT, RASH diatrizoate sodium [From GASTROGRAFIN] Allergy (Mild, Verified 09/01/23 14:15) ITCHY THROAT, RASH diclofenac [From VOLTAREN] Allergy (Mild, Verified 09/01/23 14:15) ITCHY THROAT, RASH erythromycin base [ERYTHROMYCIN BASE] Allergy (Mild, Verified 09/01/23 14:15) ITCHY THROAT, RASH gentamicin [GENTAMICIN] Allergy (Mild, Verified 09/01/23 14:15) ITCHY THROAT, RASH Iodinated Contrast Media [IVP DYE] Allergy (Mild, Verified 09/01/23 14:15) ITCHY THROAT, RASH levofloxacin [From LEVAQUIN] Allergy (Mild, Verified 09/01/23 14:15) ITCHY THROAT, RASH metronidazole [From FLAGYL] Allergy (Mild, Verified 09/01/23 14:15) ITCHY THROAT, RASH moxifloxacin [From AVELOX] Allergy (Mild, Verified 09/01/23 14:15) ITCHY THROAT, RASH Penicillins [PENICILLINS] Allergy (Mild, Verified 09/01/23 14:15) ITCHY THROAT, RASH shrimp [SHRIMP] Allergy (Mild, Verified 09/01/23 14:15) ITCHY THROAT, RASH Sulfa (Sulfonamide Antibiotics) [SULFA (SULFONAMIDE ANTIBIOTICS)] Allergy (Mild, Verified 09/01/23 14:15) ITCHY THROAT, RASH vancomycin [VANCOMYCIN] Allergy (Mild, Verified 09/01/23 14:15) ITCHY THROAT, RASH clindamycin Adverse Reaction (Intermediate, Verified 09/01/23 14:15) Unknown [facility] Medical History DVT (deep venous thrombosis) COPD (chronic obstructive pulmonary disease) Compression fracture of body of thoracic vertebra ASD (atrial septal defect) Pleuritic chest pain History of COVID-19 Chronic anticoagulation Hypothyroidism GERD (gastroesophageal reflux disease) Hyperlipidemia Hypertension Factor 5 Leiden mutation, heterozygous History of non-ST elevation myocardial infarction (NSTEMI) Hypoxia Anxiety PTSD (post-traumatic stress disorder) Hemoptysis Dyspnea Tracheobronchitis CLARA positive Diverticulitis Allergic bronchitis (HFpEF) heart failure with preserved ejection fraction Subarachnoid bleed Insomnia Anti-phospholipid antibody syndrome Hypogammaglobulinemia Chronic respiratory failure Arterial insufficiency of lower extremity Complex regional pain syndrome i of right lower limb Post herpetic neuralgia Pulmonary hypertension Pericardial effusion Pulmonary emboli Pleural effusion Radiation fibrosis of lung Pneumonitis Pulmonary nodules KANDY treated with BiPAP Lung cancer Surgical History History of colonoscopy History of lung surgery History of tonsillectomy History of hysterectomy S/P mitral valve clip implantation History of cardiac cath Family History Sister No problems noted. Mother Cardiovascular disease Daughter Tachycardia Other KANDY (obstructive sleep apnea) Social History Household Members: None Housing: House Do you presently have visiting nurse or other home services: Yes Unable to assess alcohol history related to: Unknown Alcohol intake: former Comment: stand by assist with ambulation Patient Tobacco Use Status: Never used Tobacco Second Hand Smoke Exposure: No Advance Directives Date on File: 06/15/22 service: No Current occupational status: retired Physical Exam Vital Signs: Last Vital Signs Pulse 79 09/04/23 13:17 BP 106/52 L 09/04/23 13:17 BMI result Body Mass Index 23.1 Coding
[2023-09-04 13:17] VITALS: BP 106/52; PULSE 79; BMI 23.1
--- NOTE | 2023-09-04 13:21 | A.OFFVIS_ITS ---
Intake Vital Signs 09/04/23 13:17 09/04/23 13:24 Height 5 ft 3 in Weight 130 lb 8.218 oz BMI 23.1 23.1 BP 106/52 L Blood Pressure Location Lt brachial Position Sitting Pulse 79 Pulse Source Pulse Oximeter Intake Visit Reasons: sob/ fast heart rate Intake Note: pt its here for SOB/ pt states that she no longer its having SOB, pt states that she feels tired. Sourcing Assistant Required: No Accompanied by: Self / Same As Patient Allergies avocado [AVOCADO] Allergy (Mild, Verified 09/01/23 14:15) ITCHY THROAT, RASH azithromycin [AZITHROMYCIN] Allergy (Mild, Verified 09/01/23 14:15) ITCHY THROAT, RASH barium iodide [BARIUM IODIDE] Allergy (Mild, Verified 09/01/23 14:15) ITCHY THROAT, RASH barium sulfate Allergy (Mild, Verified 09/01/23 14:15) Itch bee pollen [BEE STINGS] Allergy (Mild, Verified 09/01/23 14:15) ITCHY THROAT, RASH ciprofloxacin [From CIPRO] Allergy (Mild, Verified 09/01/23 14:15) ITCHY THROAT, RASH clarithromycin [From BIAXIN] Allergy (Mild, Verified 09/01/23 14:15) ITCHY THROAT, RASH diatrizoate meglumine [From GASTROGRAFIN] Allergy (Mild, Verified 09/01/23 14:15) ITCHY THROAT, RASH diatrizoate sodium [From GASTROGRAFIN] Allergy (Mild, Verified 09/01/23 14:15) ITCHY THROAT, RASH diclofenac [From VOLTAREN] Allergy (Mild, Verified 09/01/23 14:15) ITCHY THROAT, RASH erythromycin base [ERYTHROMYCIN BASE] Allergy (Mild, Verified 09/01/23 14:15) ITCHY THROAT, RASH gentamicin [GENTAMICIN] Allergy (Mild, Verified 09/01/23 14:15) ITCHY THROAT, RASH Iodinated Contrast Media [IVP DYE] Allergy (Mild, Verified 09/01/23 14:15) ITCHY THROAT, RASH levofloxacin [From LEVAQUIN] Allergy (Mild, Verified 09/01/23 14:15) ITCHY THROAT, RASH metronidazole [From FLAGYL] Allergy (Mild, Verified 09/01/23 14:15) ITCHY THROAT, RASH moxifloxacin [From AVELOX] Allergy (Mild, Verified 09/01/23 14:15) ITCHY THROAT, RASH Penicillins [PENICILLINS] Allergy (Mild, Verified 09/01/23 14:15) ITCHY THROAT, RASH shrimp [SHRIMP] Allergy (Mild, Verified 09/01/23 14:15) ITCHY THROAT, RASH Sulfa (Sulfonamide Antibiotics) [SULFA (SULFONAMIDE ANTIBIOTICS)] Allergy (Mild, Verified 09/01/23 14:15) ITCHY THROAT, RASH vancomycin [VANCOMYCIN] Allergy (Mild, Verified 09/01/23 14:15) ITCHY THROAT, RASH clindamycin Adverse Reaction (Intermediate, Verified 09/01/23 14:15) Unknown Medication List - Last Reconciled 09/04/23 by Luis Eduardo Cadet MD Advair HFA 230-21 mcg/actuation (fluticasone propion-salmeterol) 2 puffs inh alation BID 90 days NS albuterol sulfate 2.5 mg (3 mL) inhalation Q6H PRN 30 days CPAP (CPAP Machine/Device) As directed diazepam 5 mg PO BID doxycycline monohydrate 100 mg PO BID 14 days epinephrine IM furosemide 40 mg PO BID 90 days levocetirizine 5 mg PO DAILY 90 days levothyroxine (Synthroid) 25 mcg PO MOTUWETHFR@0600 meclizine 25 mg PO TID PRN 14 days metoprolol succinate ER (Toprol XL) 50 mg PO BID montelukast 10 mg PO DAILY nebulizers As directed Oxygen Home Use As directed potassium chloride 20 mEq PO DAILY prednisone 2.5 mg PO Q OTHER DAY rosuvastatin 10 mg PO Q OTHER DAY trazodone 100 mg (2 x 50 mg) PO BEDTIME triamcinolone acetonide 0.1% topical triamcinolone acetonide 0.1% 1 appl topical BID-TID warfarin (Jantoven) mg PO HPI HPI Comments History of Present Illness Details 78-year-old female complex medical issue s presenting follow-up. She recently was diagnosed with severe mitral valve regurgitation was felt not to be a good surgical candidate and underwent MitraClip. She had improvement in symptoms afterwards. She has advanced lung disease due to previous lung resection as well as radiation to the lungs. She also had pulmonary embolism in the past. She has pulmonary hypertension. She is presenting now because she was becoming more short of breath and had lower extremity edema. On her own she crease her furosemide to 40 mg over the last week or so. She said her breathing did not change with that strategy. It appears early November she was in the emergency department with shortness of breath and was diagnosed with left lower lobe pneumonia. She had some sharp left-sided chest pains which were pleuritic in nature likely due to underlying pneumonia. She was given antibiotics which she has completed. She is saying that her oxygen saturations the low when she is laying down. She does not use oxygen frequently. Specifically outside her home she does not use oxygen. She has tachycardia when she is ambulating which she has noticed but does not significantly get any palpitations. She continues to get short of breath with activities. She saw a pulmonary hypertension specialist and by her description she was told that her pulmonary hypertension was mostly due to mitral regurgitation. She is following with pulmonology at [place]. 12/29/22: Was brought in for urgent foll ow-up. She called and was complaining of palpitations and fast heart rates as high as 120 beats per minute and was also complaining of shortness of breath. It appears she was referred for echocardiography by pulmonology and this showed that her right ventricle is [id number] dilated, right atrium was severely dilated with small pericardial effusion as before but small to moderate pleural effusion was also noted. Previous iatrogenic ASD from transseptal puncture was noted as well mitral stenosis due to mitral clip with mean gradient of 8-9 mm Hg. Previously this was 7 mm Hg. The patient was previously advised to use oxygen when she is ambulating. Apparently she was out with her friends and while walking she was not using oxygen and started feeling shortness of breath and checked her pulse and it was 120 beats per minute. She is saying when she is using oxygen she does not get similar symptoms and has not had any tachycardia while using oxygen. She has also gained few lb over the last few days. She was sent for chest x-ray which is showing left basal pleural effusion as seen on the echocardiography also. She is taking Lasix 40 mg once a day. She is on metoprolol succinate 25 mg twice a day. 01/11/23: She returns for follow-up. She had Holter monitor on her and the day she came to return it she had significant palpitations and shortness of breath while walking to the Cardiology Department. She said she was not rushing and was walking at a slow pace. She said these symptoms improved afterwards and she did not have any for the palpitations walking back to her car. She was using oxygen. She is wearing oxygen 30/01 but is saying that she feels lousy and has not felt any difference in her dyspnea or palpitations. She has been using 40 mg twice a day of Lasix. Her blood pressure control is good. Previously we did not increase her Toprol XL despite seeing some degree of mitral stenosis on her echocardiogram which is iatrogenic due to MitraClip. She has been more sedentary and is quite frail and deconditioned. She is tearful that she is unable to do any of the activities she was able to do before. 02/13/23: She returns for follow-up. She was previously on 40 mg p.o. b.i.d. Lasix. She had called our office for lower extremity edema and Lasix dose was increased to 80 mg twice a day. Subsequent to that she called or office that she is dehydrated and was advised to take 80 mg in the morning and 40 in the afternoon. She had blood workup which showed hypokalemia and she was started on potassium supplements. She continues to get fatigue and SOB. She is using oxygen when sleeping and with ambulation. Continues to get tachycardia with ambulation. 04/26/2023: She returns for follow-up. She called us yesterday because she gained 3 lb over 3 days. She was taking 40 mg p.o. b.i.d. Lasix. She was advised to take an extra dose of Lasix yesterday and increase the Lasix to 80 mg in the morning today. She said she checked her weight today and was back at 128 lb which was her baseline. She is saying she has been short of breath and fatigue. Also she had upper back pain which moved to her chest early April and she went to [facility] where she had a chest CTA performed which did not show any evidence of dissection or pulmonary embolism. Pulmonary arteries were noticed to be dilated consistent with her known history of pulmonary hypertension. 08/14/2023: She returns for follow-up. S he had an episode of diverticulitis which was treated in the hospital. She said she went home and was getting some shortness of breath and wheezing and was advised to go back to the hospital and was treated for pneumonia also. She continues to have symptoms like before including chest tightness, fatigue and inability to exercise. She is on oxygen mostly at times. She complains of some edema in the lower extremity but nothing significant is noted on examination. 09/04/2023: She returns for urgent follow -up. She is complaining of shortness of breath and palpitations. She said she was tachycardic and checked her heart rate and was 100 beats per minute. She has been using oxygen most of the time. Sometimes she takes it off and if the oxygen level is dropping she wears oxygen back. During activities she has been using oxygen. Continues to get off and on chest discomfort. She had an echocardiogram done at [facility] with transmitral gradient was 7 mm Hg at a heart rate of 76 beats per minute. PENDING SALE TO [facility] Medical History DVT (deep venous thrombosis) COPD (chronic obstructive pulmonary disease) Compression fracture of body of thoracic vertebra ASD (atrial septal defect) Pleuritic chest pain History of COVID-19 Chronic anticoagulation Hypothyroidism GERD (gastroesophageal reflux disease) Hyperlipidemia Hypertension Factor 5 Leiden mutation, heterozygous History of non-ST elevation myocardial infarction (NSTEMI) Hypoxia Anxiety PTSD (post-traumatic stress disorder) Hemoptysis Dyspnea Tracheobronchitis CLARA positive Diverticulitis Allergic bronchitis (HFpEF) heart failure with preserved ejection fraction Subarachnoid bleed Insomnia Anti-phospholipid antibody syndrome Hypogammaglobulinemia Chronic respiratory failure Arterial insufficiency of lower extremity Complex regional pain syndrome i of right lower limb Post herpetic neuralgia Pulmonary hypertension Pericardial effusion Pulmonary emboli Pleural effusion Radiation fibrosis of lung Pneumonitis Pulmonary nodules KANDY treated with BiPAP Lung cancer Surgical History History of colonoscopy History of lung surgery History of tonsillectomy History of hysterectomy S/P mitral valve clip implantation History of cardiac cath Family History Sister No problems noted. Mother Cardiovascular disease Daughter Tachycardia Other KANDY (obstructive sleep apnea) Social History Household Members: None Housing: House Do you presently have visiting nurse or other home services: Yes Unable to assess alcohol history related to: Unknown Alcohol intake: former Comment: stand by assist with ambulation Patient Tobacco Use Status: Never used Tobacco Second Hand Smoke Exposure: No Advance Directives Date on File: 06/15/22 service: No Current occupational status: retired Physical Exam Vital Signs: Last Vital Signs Pulse 79 09/04/23 13:17 BP 106/52 L 09/04/23 13:17 BMI result Body Mass Index 23.1 GENERAL APPEARANCE: In no distress. NECK/THYROID: no carotid bruit, no JVD. SKIN: no suspicious lesions, warm and dry. HEART: no murmurs, regular rate and rhythm, S1, S2 normal. LUNGS: clear to auscultation bilaterally. ABDOMEN: normal, bowel sounds present, soft, nontender, nondistended. EXTREMITIES: no clubbing, cyanosis. No significant edema. PERIPHERAL PULSES: equal. NEUROLOGIC: nonfocal, alert and oriented. Assessment & Plan Assessment & Plan (1) CAD (coronary artery disease): Code(s): I25.10 - Atherosclerotic heart disease of [place] coronary artery without angina pectoris (2) Diastolic CHF: Code(s): I50.30 - Unspecified diastolic (congestive) heart failure Qualifiers: Heart failure chronicity: chronic Qualified Code(s): I50.32 - Chronic diastolic (congestive) heart failure Plan 78-year-old female with complex cardiovascular and medical issues. She had mitral regurgitation and underwent MitraClip because she was not a surgical candidate. Has RV dysfunction as well as pulmonary hypertension which is due to lung disease including lung irradiation in the past. From heart failure point of view, she is stable. She is euvolemic at this point and I have advised her to continue same dose of Lasix 40 mg twice a day. She has followed up with Dr. Camarillo at [facility] who has asked her to see him as needed from here onward. She had repeat echocardiography done at [facility] which showed a transmitral gradient of 7 mm Hg at heart rate of 76 beats per minute. Mild mitral stenosis was noted. I have explained to her that her chest tightness is chronic and despite angiography done twice no significant coronary disease is there and she hardly has a 50% mid LAD stenosis which should not give her any chest discomfort at rest. She has felt palpitations but heart rate is 100 beats per minute. I explained to her that we can arrange Holter monitoring for her again but previously this was not helpful and no arrhythmia was noted. Thank you for allowing me to participate in the care of your patient. Please feel free to contact me if you have any questions. Orders: Orders Basic Metabolic Panel Today I50.32 - Chronic diastolic (congestive) heart failure Coding Level of Care Code Est Pt Level 4 (07177) Diagnoses CAD (coronary artery disease) I25.10 Chronic diastolic congestive heart failure I50.32 Heart failure chronicity: chronic
[2023-09-04 13:24] VITALS: BMI 23.1
== END 2023-09-04 13:54 | disposition home or self-care (01) ==
PROVIDERS: PCP Internal Medicine; Visit Provider Internal Medicine Cardiovascular Disease
DX: I25.10 Atherosclerotic heart disease of native coronary artery without angina pectoris (principal); I50.32 Chronic diastolic (congestive) heart failure
CPT/HCPCS: 99214

== ENCOUNTER → 2023-09-04 13:03 | Outpatient (BNVA) | payer MEDICARE, SELFPAY | PROVIDERS: PCP Internal Medicine; Visit Provider Internal Medicine Cardiovascular Disease | DX: I25.10 Atherosclerotic heart disease of native coronary artery without angina pectoris (principal); I50.32 Chronic diastolic (congestive) heart failure | CPT/HCPCS: 99212 ==

== ENCOUNTER 2023-09-14 10:46 | Outpatient (AMB) | payer MEDICARE, SELFPAY ==
[2023-09-14 10:55] VITALS: BP 118/60; PULSE 82; O2SAT 96; BMI 22.8
--- NOTE | 2023-09-14 10:55 | A.OFFVIS_ITS ---
Intake Vital Signs 09/14/23 10:55 Height 5 ft 3 in Weight 129 lb BMI 22.8 BP 118/60 Blood Pressure Location Lt brachial Position Sitting Pulse 82 Pulse Source Pulse Oximeter Pulse Oximetry (%) 96 Oxygen Delivery Method Room Air Comment 2 Liters Oxygen([employer]) Intake Visit Reasons: Dyspnea Welt Maker Required: No Allergies avocado [AVOCADO] Allergy (Mild, Verified 09/14/23 10:59) ITCHY THROAT, RASH azithromycin [AZITHROMYCIN] Allergy (Mild, Verified 09/14/23 10:59) ITCHY THROAT, RASH barium iodide [BARIUM IODIDE] Allergy (Mild, Verified 09/14/23 10:59) ITCHY THROAT, RASH barium sulfate Allergy (Mild, Verified 09/14/23 10:59) Itch bee pollen [BEE STINGS] Allergy (Mild, Verified 09/14/23 10:59) ITCHY THROAT, RASH ciprofloxacin [From CIPRO] Allergy (Mild, Verified 09/14/23 10:59) ITCHY THROAT, RASH clarithromycin [From BIAXIN] Allergy (Mild, Verified 09/14/23 10:59) ITCHY THROAT, RASH diatrizoate meglumine [From GASTROGRAFIN] Allergy (Mild, Verified 09/14/23 10:59) ITCHY THROAT, RASH diatrizoate sodium [From GASTROGRAFIN] Allergy (Mild, Verified 09/14/23 10:59) ITCHY THROAT, RASH diclofenac [From VOLTAREN] Allergy (Mild, Verified 09/14/23 10:59) ITCHY THROAT, RASH erythromycin base [ERYTHROMYCIN BASE] Allergy (Mild, Verified 09/14/23 10:59) ITCHY THROAT, RASH gentamicin [GENTAMICIN] Allergy (Mild, Verified 09/14/23 10:59) ITCHY THROAT, RASH Iodinated Contrast Media [IVP DYE] Allergy (Mild, Verified 09/14/23 10:59) ITCHY THROAT, RASH levofloxacin [From LEVAQUIN] Allergy (Mild, Verified 09/14/23 10:59) ITCHY THROAT, RASH metronidazole [From FLAGYL] Allergy (Mild, Verified 09/14/23 10:59) ITCHY THROAT, RASH moxifloxacin [From AVELOX] Allergy (Mild, Verified 09/14/23 10:59) ITCHY THROAT, RASH Penicillins [PENICILLINS] Allergy (Mild, Verified 09/14/23 10:59) ITCHY THROAT, RASH shrimp [SHRIMP] Allergy (Mild, Verified 09/14/23 10:59) ITCHY THROAT, RASH Sulfa (Sulfonamide Antibiotics) [SULFA (SULFONAMIDE ANTIBIOTICS)] Allergy (Mild, Verified 09/14/23 10:59) ITCHY THROAT, RASH vancomycin [VANCOMYCIN] Allergy (Mild, Verified 09/14/23 10:59) ITCHY THROAT, RASH clindamycin Adverse Reaction (Intermediate, Verified 09/14/23 10:59) Unknown HPI HPI Comments History of Present Illness Details The patient is a 78 y/o woman with a complicated history which includes: COPD, KANDY, pulmonary HTN, history pulmonary emboli on chronic antic oagulation, lung CA Stage IIIA s/o neoadjuvant chemoradiation and Left upper lobe lobectomy. She did have a CT scan today that I personally reviewed. Has not been personally read by the radiologist. Based on my reading she has some pulmonary nodules some that are new 4 mm in the right major fissure area. Other nodules are stable. Other post operative and pulmonary fibrotic changes stable. The patient should get a CT scan in 6 months. Also to note, she did not tolerate the Incruse nor budesonide. Will consider Daliresp. She was admitted to [facility] with diverticulitis. She was placed on IV antibiotics but she left against medical advice because she did not like the antibiotic options. In the meantime she was having some issues with coughing up some blood. She is also concerned because on her visit to [facility] she did have a CT scan of the chest and she was told that she had significant scarring of her lungs in addition to lung volume loss. I have not looked at the CT scan back in reassured her that she has had this radiation fibrosis for long time and volume loss due to the scarring was present before. We did review her perfusion scan demonstrating no defects to suggest any blood clots. Interestingly in the quantitative study the patient did have 81% of the blood flow going to her right lung and 18% going to the left. This is likely due to her previous surgery and also radiation changes. 05/11/2023 the patient is here for a pulm onary follow-up visit. The patient continues to be about the same. she did have a excellent which she banged her head and bruised her forehead. She did go to the [facility] ED where she did have a CT scan of the brain demonstrating no acute bleeding. However she continued to have symptoms of headaches and she did follow-up with her primary care doctor who ordered a 2nd CT scan done at [facility]. We did personally reviewed demonstrating chronic changes without any acute bleed. The patient is complaining also of some chest discomfort some pleuritic components. Were awaiting her CT PET to better address her ongoing symptoms in addition to the 9 mm pulmonary nodule in the right middle lobe area. She continues use her oxygen with good effect. Although she feels like she is more dependent on specially when she desaturates on room air even when sitting. Sometimes she is okay and sometimes her oxygen drops. She is wondering why. Explained to the patient that she does not have any pulmonary reserve due to her significant scarring, radiation changes obstructive lung disease and also her surgical lung resection. The patient also has a component of pulmonary hypertension that appears to have gotten worse after her mitral clip. She is on the diuretics and is responding well to that. Although she is had to use a higher dose. Her blood work is reassuring her BUN is a little elevated but creatinine continues to be within normal. She continues use her BiPAP at nighttime as well. The therapy has been affecting beneficial. At this point we are going to await the PET scan to see those results in the meantime we did talk about her respiratory medications. She is tried multiple different inhalers she does not tolerate a lot of them. Adverse she does tolerate so therefore will continue. Will provide her with a short-acting beta agonist that she can use in between and also she can use her nebulizer while at home. 06/15/2023 the patient is here for a pulm onary follow-up visit. The patient overall has been feeling fair. She had a tooth extraction that then became very swollen and she went to the ER. The patient was found to have some the when the extracted area. Overall she is feeling better from that standpoint. She had a lot of swelling of her face and also over lower extremities with some discoloration of her skin. More recently she was at the mall after performing pulmonary rehab in the mall she was carry multiple bags and then she had to do a lot a walking because the escalator was down and she started developing heaviness in the chest area, pressure sensation moderate severity. Also noticed increased shortness of breath. At which point the patient did get help from a employee from the store that helped her with her back issues to a car. The patient at this point feels better. She is concerned about the event. We did go over the different possibilities. She needs to have a rescue inhaler with her in those cases to use it for her acute bronchospasms. The patient also will undergo a chest x-ray and also blood work to further address her symptoms. Explained to her that is reassuring that she does not have any significant coronary artery disease. Also it is reassuring that she recently had a PET scan that we personally reviewed demonstrating no significant findings as far as that nodular density in the right appears to have resolved and no evidence of any underlying concerning metabolic process. The patient has a trip planned to [place]. I did encourage her to go on this trip. Once have some results I will call her with the results of her x-ray and blood work. 07/20/2023 the patient is here for a pulm onary follow-up visit. The patient overall has been doing fairly well. She just returned from a trip to [place]. She had 1 for time with her family. She continues use her oxygen with a portable oxygen concentrator while being there. She did have a cough when she was down there but since she came back the cough has improved some. She also describes symptoms of chest pain and also tachycardia which have been e xertional. She does mention that the time that it happened she was coming [place] [email or web address] and she was carrying some groceries and she took off her oxygen. And when she tried carrying the groceries she started having some left- sided chest pressure and also some tachycardia. I also did take it for walk in the office. We did walker with a portable oxygen concentrator and she became dyspneic although the pulse ox was stable and heart rate was also stable. My suspicion is that in view of her congestive heart failure and pulmonary hypertension and moderate degree of COPD she is having some demand symptoms when she exerts herself without the oxygen. Therefore explained to her that she should not take off the oxygen while exerting herself and lifting groceries or objects. The patient is wondering about her pulmonary hypertension. Explained to her that vasodilators therapy will be potentially problematic specially with her reactions in the past. The main treatment at this point will be diuresis. She is tolerating that well she will undergo blood work to further address that. We did review her PFTs that she had back last year in appears that her COPD did worsen with an FEV1 of 74% predicted which is moderate severity. The patient also underwent blood work and her venous gas demonstrated an elevated CO2 and also she had an elevated bicarb. Will go ahead and have a repeat the blood work at this time. She is also having some abdominal discomfort. I suspect that she has recurrence of her diverticulitis. I will give her Vantin which she tolerates and if the symptoms worsen she needs to either go to her primary care doctor seek medical advice. 08/24/2023 the patient is here for a pulm onary follow-up visit. She was recently hospitalized at [facility] apparently with diverticulitis and also with pneumonia. The patient had a repeat CT scan of the abdomen just yesterday. We will request the results from [facility]. In the meantime the patient continues have shortness of breath with minimal activity. She does use her oxygen with good effect. She has been evaluated further for her pulmonary hypertension. She did speak to her specialists from [place] who wants her to undergo a cardiac catheterization. She is reluctant to go to [place]. And her sink cutter here is reluctant to do it here. She in the meantime will have an echocardiogram I believe in [facility]. Based on those results additional evaluation may be warranted. The patient does have dyspnea on exertion. [place] heart Association class 3. I do believe that this is related to her underlying pulmonary hypertension along with her significant COPD and restrictive lung disease. The patient does complaint of a cough the cough tends to be croupy in nature. She likely has a component of tracheomalacia. She does have daytime drowsiness. Her [place] score is elevated 10/24. She has a hard time remembering things. I did download her BiPAP. Currently setting 13 overnight. Her AHI is actually elevated at 13. This was not the case before on the same settings that she has had multiple sleep studies. Initially I was going to put her on VPAP auto but I just went ahead and increase her pressures to 15/10 in view of her very sensitive response to change. She will let me know how these pressures are doing we can always download her machine online to make sure that her AHI is decreasing. The patient's last blood gas demonstrated component of chronic hypercarbic respiratory failure along with a metabolic alkalosis. Likely from diuresis and her renal adjustments to her hypercarbia. The patient is scheduled to undergo an overnight oximetry on her BiPAP and on 2 L of oxygen which she has been using. We will reassess and check her venous blood gas during the next visit. 09/14/2023 the patient is here for visit. The patient still has multiple complaints. She is nervous. She feels like her breathing is getting worse and she is using oxygen more often. She also complains of pleuritic discomfort on the left side of her chest. She was seen by Cardiology and they do not see any active coronary artery disease based on her to coronary artery angiograms. The patient does have indeed some pulmonary hypertension and some mitral stenosis secondary to her mitral clip. She is responding well to the diuretics. No role for vasodilators therapy. The patient did have an overnight oximetry which we reviewed. The patient does need to increase her oxygen with BiPAP. She increases from 2 L to 3 L at this time. She needs to have further education about her use the concentrator so request a [facility] since somebody to educate her on how to switch her concentrator at this time. Meantime the patient is complaining of neck pain and also numbness of her upper extremities. She is also having difficulty sleeping. Will go ahead and started on a small dose of gabapentin hopefully to help her with her neuropathic discomfort and also hopefully help her with her sleep. She is very sensitive to medications so she will start with 100 mg capsules which is very small dose and then increase it to 200 after a week if not any better. Seems that she was on Neurontin in the past and she did tolerated which is reassuring. [facility] Medical History DVT (deep venous thrombosis) COPD (chronic obstructive pulmonary disease) Compression fracture of body of thoracic vertebra ASD (atrial septal defect) Pleuritic chest pain History of COVID-19 Chronic anticoagulation Hypothyroidism GERD (gastroesophageal reflux disease) Hyperlipidemia Hypertension Factor 5 Leiden mutation, heterozygous History of non-ST elevation myocardial infarction (NSTEMI) Hypoxia Anxiety PTSD (post-traumatic stress disorder) Hemoptysis Dyspnea Tracheobronchitis CLARA positive Diverticulitis Allergic bronchitis (HFpEF) heart failure with preserved ejection fraction Subarachnoid bleed Insomnia Anti-phospholipid antibody syndrome Hypogammaglobulinemia Chronic respiratory failure Arterial insufficiency of lower extremity Complex regional pain syndrome i of right lower limb Post herpetic neuralgia Pulmonary hypertension Pericardial effusion Pulmonary emboli Pleural effusion Radiation fibrosis of lung Pneumonitis Pulmonary nodules KANDY treated with BiPAP Lung cancer Surgical History History of colonoscopy History of lung surgery History of tonsillectomy History of hysterectomy S/P mitral valve clip implantation History of cardiac cath Family History Sister No problems noted. Mother Cardiovascular disease Daughter Tachycardia Other KANDY (obstructive sleep apnea) Social History Household Members: None Housing: House Do you presently have visiting nurse or other home services: Yes Unable to assess alcohol history related to: Unknown Alcohol intake: former Comment: stand by assist with ambulation Patient Tobacco Use Status: Never used Tobacco Second Hand Smoke Exposure: No Advance Directives Date on File: 06/15/22 service: No Current occupational status: retired Review of Systems Const Denies chills, Reports fatigue, Denies fever(s), Denies frequent falls, Denies weakness, Denies weight gain and Denies weight loss ENT Denies change in voice and Denies dizziness Card Reports chest pain, Reports chest pain with activity, Reports rapid heart rate, Denies leg edema, Denies lightheadedness, Denies palpitations, Denies dyspnea, Reports dyspnea on exertion, Denies orthopnea and Denies other (loss of consciousness) Resp Reports cough, Denies dyspnea and Reports dyspnea on exertion GI Denies hematochezia and Denies change in stool character Musc Denies abnormal gait, Denies muscle weakness, Denies numbness, Denies radiating pain into limb and Denies tingling Skin/Breast Reports change in pigmentation Neuro Denies abnormal gait, Denies dizziness, Denies frequent falls, Denies numbness, Denies tingling and Denies weakness Endo Reports fatigue and Denies palpitations Physical Exam Vital Signs: Last Vital Signs Pulse 82 09/14/23 10:55 BP 118/60 09/14/23 10:55 Pulse Ox 96 09/14/23 10:55 Oxygen Delivery Method Room Air 09/14/23 10:55 BMI result Body Mass Index 22.8 Last Vital Signs Temp 97.7 F 06/20/22 08:00 Pulse 90 06/20/22 08:00 Resp 16 06/20/22 08:00 BP 137/60 06/20/22 08:00 Pulse Ox 93 06/20/22 08:00 O2 Del Method 06/20/22 08:00 O2 Flow Rate 2 06/20/22 08:00 FiO2 45 06/14/22 11:07 BMI result Body Mass Index 23.0 Const General: cooperative, comfortable, alert and awake Orientation/consciousness: patient oriented x3 HEENT Head: Yes atraumatic Eyes General: appearance normal, both eyes and all related structures Neck Neck: Yes trachea midline, Yes supple and Yes no JVD Chest Chest palpation & inspection: normal inspection of the chest Resp Effort & Inspection: normal respiratory effort, no cough and prolonged expiratory phase Auscultation: no rales, no rhonchi, no wheezes and diminished lung sounds Cardio Rate: regular rate Rhythm: regular rhythm Heart sounds: S1 normal heart sound present, S2 normal heart sound present and Abnormal heart opening sounds loud S2 GI Auscultation: normal bowel sounds Skin General skin exam: purpura and scars Neuro General: patient oriented x3 and no focal motor deficits Extrem General: Yes no clubbing, cyanosis or edema Assessment & Plan Assessment & Plan (1) Lung cancer: Code(s): C34.90 - Malignant neoplasm of unspecified part of unspecified bronchus or lung Qualifiers: Laterality: left Lung location: upper lobe of lung Qualified Code(s): C34.12 - Malignant neoplasm of upper lobe, left bronchus or lung (2) Pulmonary hypertension: Comment: severe based on RHC, moderate based on recent echo Code(s): I27.20 - Pulmonary hypertension, unspecified (3) Pulmonary nodules: Code(s): R91.8 - Other nonspecific abnormal finding of lung field (4) Chronic respiratory failure: Code(s): J96.10 - Chronic respiratory failure, unspecified whether with hypoxia or hypercapnia Qualifiers: Respiratory failure complication: hypoxia and hypercapnia Qualified Code(s): J96.11 - Chronic respiratory failure with hypoxia; J96.12 - Chronic respiratory failure with hypercapnia (5) KANDY treated with BiPAP: Code(s): G47.33 - Obstructive sleep apnea (adult) (pediatric) (6) Radiation fibrosis of lung: Code(s): J70.1 - Chronic and other pulmonary manifestations due to radiation (7) COPD (chronic obstructive pulmonary disease): Code(s): J44.9 - Chronic obstructive pulmonary disease, unspecified Qualifiers: COPD type: chronic bronchitis Chronic bronchitis type: simple Qualified Code(s): J41.0 - Simple chronic bronchitis (8) Diastolic CHF: Code(s): I50.30 - Unspecified diastolic (congestive) heart failure Qualifiers: Heart failure chronicity: chronic Qualified Code(s): I50.32 - Chronic diastolic (congestive) heart failure (9) (HFpEF) heart failure with preserved ejection fraction: Code(s): I50.30 - Unspecified diastolic (congestive) heart failure Qualifiers: Heart failure chronicity: chronic Qualified Code(s): I50.32 - Chronic diastolic (congestive) heart failure (10) Abdominal pain: Comment: h/o diverticulitis Code(s): R10.9 - Unspecified abdominal pain Qualifiers: Abdominal location: left lower quadrant Qualified Code(s): R10.32 - Left lower quadrant pain (11) Dental abscess: Code(s): K04.7 - Periapical abscess without sinus Plan prednisone 2.5 mg Ambien for sleep start Gabapentin QHS continue Advair ASHA as needed continue ASHA (xopenex) as needed CPT with acapella valve fluticasone Oxygen 2L/pulse with activity and sleep. POC Inogen G5 duiresis as tolerated continue BIPAP at night with O2. AHI elevated->adjusted BIPAP 13/9 to 15/10, will increase her oxygen 3L with BIPAP while sleeping ECHO at [facility] F/U 6-8 weeks Medications: New gabapentin 200 mg (2 x 100 mg) PO BEDTIME 30 days 60 caps 5RF Coding Level of Care Code Est Pt Level 5 (51536) Diagnoses Malignant neoplasm of upper lobe of left lung C34.12 Laterality: left Lung location: upper lobe of lung Pulmonary hypertension I27.20 Pulmonary nodules R91.8 Chronic respiratory failure with hypoxia and hypercapnia J96.11; J96.12 Respiratory failure complication: hypoxia and hypercapnia KANDY treated with BiPAP G47.33 Radiation fibrosis of lung 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 Chronic heart failure with preserved ejection fraction I50.32 Heart failure chronicity: chronic Left lower quadrant abdominal pain R10.32 Abdominal location: left lower quadrant Dental abscess K04.7 Time Spent (min) 40
== END 2023-09-14 11:33 | disposition home or self-care (01) ==
PROVIDERS: PCP Internal Medicine; Visit Provider Hospitalist
DX: C34.12 Malignant neoplasm of upper lobe, left bronchus or lung (principal); I27.20 Pulmonary hypertension, unspecified; R91.8 Other nonspecific abnormal finding of lung field; J96.11 Chronic respiratory failure with hypoxia; J96.12 Chronic respiratory failure with hypercapnia; G47.33 Obstructive sleep apnea (adult) (pediatric); J70.1 Chronic and other pulmonary manifestations due to radiation; J41.0 Simple chronic bronchitis; I50.32 Chronic diastolic (congestive) heart failure; R10.32 Left lower quadrant pain; K04.7 Periapical abscess without sinus
CPT/HCPCS: 99215

== ENCOUNTER → 2023-09-14 10:46 | Outpatient (BNVA) | payer MEDICARE, SELFPAY | PROVIDERS: PCP Internal Medicine; Visit Provider Hospitalist | DX: C34.12 Malignant neoplasm of upper lobe, left bronchus or lung (principal); R91.8 Other nonspecific abnormal finding of lung field; J96.11 Chronic respiratory failure with hypoxia; J96.12 Chronic respiratory failure with hypercapnia; J70.1 Chronic and other pulmonary manifestations due to radiation; J41.0 Simple chronic bronchitis; G47.33 Obstructive sleep apnea (adult) (pediatric); I27.20 Pulmonary hypertension, unspecified; I50.32 Chronic diastolic (congestive) heart failure | CPT/HCPCS: 99212 ==

== ENCOUNTER 2023-09-28 13:13 | Outpatient (REF) | payer MEDICARE, SELFPAY ==
--- NOTE | ~2023-09-28 | XR_ITS ---
EXAM: X-RAYS BILATERAL SHOULDERS CLINICAL INFORMATION: Pain in unspecified shoulder. TECHNIQUE: 3 views of each shoulder. COMPARISON: None. FINDINGS: RIGHT SHOULDER: The bones are diffusely demineralized. Degenerative changes on limited images of the upper thoracic spine. Mild degenerative changes in the acromioclavicular joint with joint space narrowing and hypertrophic change. Glenohumeral alignment is preserved. LEFT SHOULDER: The bones are diffusely demineralized. Mild degenerative changes in the acromioclavicular joint with joint space narrowing and hypertrophic change. Mild degenerative changes with hypertrophic change at the glenohumeral joint. Postsurgical changes with sutures and left lung opacities on very limited images of the left [id number] lung were better characterized on prior radiographs including chest radiograph of April 06, 2023. XR/XR shoulder LT min 2V IMPRESSION: Mild degenerative changes bilateral shoulders.
--- NOTE | ~2023-09-28 | XR_ITS ---
EXAM: X-RAYS BILATERAL SHOULDERS CLINICAL INFORMATION: Pain in unspecified shoulder. TECHNIQUE: 3 views of each shoulder. COMPARISON: None. FINDINGS: RIGHT SHOULDER: The bones are diffusely demineralized. Degenerative changes on limited images of the upper thoracic spine. Mild degenerative changes in the acromioclavicular joint with joint space narrowing and hypertrophic change. Glenohumeral alignment is preserved. LEFT SHOULDER: The bones are diffusely demineralized. Mild degenerative changes in the acromioclavicular joint with joint space narrowing and hypertrophic change. Mild degenerative changes with hypertrophic change at the glenohumeral joint. Postsurgical changes with sutures and left lung opacities on very limited images of the left [id number] lung were better characterized on prior radiographs including chest radiograph of April 06, 2023. XR/XR shoulder RT min 2V IMPRESSION: Mild degenerative changes bilateral shoulders.
== END 2023-09-28 13:14 | disposition home or self-care (01) ==
LOC: HO.HOSX 13:13
PROVIDERS: Visit Provider Orthopaedic Surgery
DX: M25.511 Pain in right shoulder (principal); M25.512 Pain in left shoulder; M76.31 Iliotibial band syndrome, right leg; M54.12 Radiculopathy, cervical region
CPT/HCPCS: 73030; 99212

== ENCOUNTER 2023-09-28 13:27 | Outpatient (AMB) | payer MEDICARE, SELFPAY ==
[2023-09-28 14:06] VITALS: BMI 22.8
--- NOTE | 2023-09-28 14:06 | A.OFFVIS_ITS ---
Intake Vital Signs 09/28/23 14:06 Height 5 ft 3 in Weight 129 lb BMI 22.8 Intake Visit Reasons: New Prob - B/L shoulder pain Intake Note: Jovana is an 78 year old female who presents today for a new problem visit with complaints of bilateral shoulder pain. She has been seen with Pain Mgmt and is diagnosed with CRPS. She is not interested in implantable therapies, she has also declined steroid injections as she would need to discontinue coumadin and has had adverse reactions when doing this in the past. States her right is worse than the left. Allergies avocado [AVOCADO] Allergy (Mild, Verified 09/14/23 10:59) ITCHY THROAT, RASH azithromycin [AZITHROMYCIN] Allergy (Mild, Verified 09/14/23 10:59) ITCHY THROAT, RASH barium iodide [BARIUM IODIDE] Allergy (Mild, Verified 09/14/23 10:59) ITCHY THROAT, RASH barium sulfate Allergy (Mild, Verified 09/14/23 10:59) Itch bee pollen [BEE STINGS] Allergy (Mild, Verified 09/14/23 10:59) ITCHY THROAT, RASH ciprofloxacin [From CIPRO] Allergy (Mild, Verified 09/14/23 10:59) ITCHY THROAT, RASH clarithromycin [From BIAXIN] Allergy (Mild, Verified 09/14/23 10:59) ITCHY THROAT, RASH diatrizoate meglumine [From GASTROGRAFIN] Allergy (Mild, Verified 09/14/23 10:59) ITCHY THROAT, RASH diatrizoate sodium [From GASTROGRAFIN] Allergy (Mild, Verified 09/14/23 10:59) ITCHY THROAT, RASH diclofenac [From VOLTAREN] Allergy (Mild, Verified 09/14/23 10:59) ITCHY THROAT, RASH erythromycin base [ERYTHROMYCIN BASE] Allergy (Mild, Verified 09/14/23 10:59) ITCHY THROAT, RASH gentamicin [GENTAMICIN] Allergy (Mild, Verified 09/14/23 10:59) ITCHY THROAT, RASH Iodinated Contrast Media [IVP DYE] Allergy (Mild, Verified 09/14/23 10:59) ITCHY THROAT, RASH levofloxacin [From LEVAQUIN] Allergy (Mild, Verified 09/14/23 10:59) ITCHY THROAT, RASH metronidazole [From FLAGYL] Allergy (Mild, Verified 09/14/23 10:59) ITCHY THROAT, RASH moxifloxacin [From AVELOX] Allergy (Mild, Verified 09/14/23 10:59) ITCHY THROAT, RASH Penicillins [PENICILLINS] Allergy (Mild, Verified 09/14/23 10:59) ITCHY THROAT, RASH shrimp [SHRIMP] Allergy (Mild, Verified 09/14/23 10:59) ITCHY THROAT, RASH Sulfa (Sulfonamide Antibiotics) [SULFA (SULFONAMIDE ANTIBIOTICS)] Allergy (Mild, Verified 09/14/23 10:59) ITCHY THROAT, RASH vancomycin [VANCOMYCIN] Allergy (Mild, Verified 09/14/23 10:59) ITCHY THROAT, RASH clindamycin Adverse Reaction (Intermediate, Verified 09/14/23 10:59) Unknown HPI New Prob - B/L shoulder pain HPI Details Jovana is an 78 year old female who presents today for a new problem visit with complaints of right neck, shoulder and arm pain. She describes electricity extending down her arm from her neck to her radial hand. She denies injury. She has been seen with Pain Mgmt and is diagnosed with CRPS. She is not interested in implantable therapies, she has also declined steroid injections as she would need to discontinue coumadin and has had adverse reactions when doing this in the past. [facility], [facility] Medical History DVT (deep venous thrombosis) COPD (chronic obstructive pulmonary disease) Compression fracture of body of thoracic vertebra ASD (atrial septal defect) Pleuritic chest pain History of COVID-19 Chronic anticoagulation Hypothyroidism GERD (gastroesophageal reflux disease) Hyperlipidemia Hypertension Factor 5 Leiden mutation, heterozygous History of non-ST elevation myocardial infarction (NSTEMI) Hypoxia Anxiety PTSD (post-traumatic stress disorder) Hemoptysis Dyspnea Tracheobronchitis CLARA positive Diverticulitis Allergic bronchitis (HFpEF) heart failure with preserved ejection fraction Subarachnoid bleed Insomnia Anti-phospholipid antibody syndrome Hypogammaglobulinemia Chronic respiratory failure Arterial insufficiency of lower extremity Complex regional pain syndrome i of right lower limb Post herpetic neuralgia Pulmonary hypertension Pericardial effusion Pulmonary emboli Pleural effusion Radiation fibrosis of lung Pneumonitis Pulmonary nodules KANDY treated with BiPAP Lung cancer Surgical History History of colonoscopy History of lung surgery History of tonsillectomy History of hysterectomy S/P mitral valve clip implantation History of cardiac cath Family History Sister No problems noted. Mother Cardiovascular disease Daughter Tachycardia Other KANDY (obstructive sleep apnea) Social History Household Members: None Housing: House Do you presently have visiting nurse or other home services: Yes Unable to assess alcohol history related to: Unknown Alcohol intake: former Comment: stand by assist with ambulation Patient Tobacco Use Status: Never used Tobacco Second Hand Smoke Exposure: No Advance Directives Date on File: 06/15/22 service: No Current occupational status: retired Physical Exam Vital Signs: BMI result Body Mass Index 22.8 Extrem Other: Neg impingement testing Neg Crawford's RUE motor function grossly intact with no appreciable weakness in WF/WE/Bic/Tri/Deltoid Results Reviewed Results Reviewed: I personally reviewed relevant radiographs. Shoulder radiographs unremarkable. Assessment & Plan Assessment & Plan (1) Iliotibial band syndrome affecting right lower leg: Code(s): M76.31 - Iliotibial band syndrome, right leg Plan: Ongoing lateral hip and thigh pain without radicular symptoms. PT ordered previously but not completed (2) Cervical radiculopathy: Code(s): M54.12 - Radiculopathy, cervical region Plan: Symptoms of cervical radiculopathy. PT ordered. She is opposed to injections or other invasive interventions. Orders: Orders XR shoulder RT min 2V 09/28/23 M25.519 - Pain in unspecified shoulder XR shoulder LT min 2V 09/28/23 M25.519 - Pain in unspecified shoulder PT Evaluation and Treatment 09/28/23 M54.12 - Radiculopathy, cervical region, M76.31 - Iliotibial band syndrome, right leg Coding Level of Care Code Est Pt Level 4 (67838) Diagnoses Iliotibial band syndrome affecting right lower leg M76.31 Cervical radiculopathy M54.12
== END 2023-09-28 14:56 | disposition home or self-care (01) ==
PROVIDERS: PCP Internal Medicine; Visit Provider Orthopaedic Surgery
DX: M76.31 Iliotibial band syndrome, right leg (principal); M54.12 Radiculopathy, cervical region
CPT/HCPCS: 99213

== ENCOUNTER 2023-10-12 10:34 | Outpatient (AMB) | payer MEDICARE, SELFPAY ==
[2023-10-12 10:40] VITALS: BP 128/60; PULSE 81; O2SAT 98; BMI 23.3
--- NOTE | 2023-10-12 10:40 | MHC.OFFVIS ---
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 Allergies avocado [AVOCADO] Allergy (Mild, Verified 10/12/23 10:43) ITCHY THROAT, RASH azithromycin [AZITHROMYCIN] Allergy (Mild, Verified 10/12/23 10:43) ITCHY THROAT, RASH barium iodide [BARIUM IODIDE] Allergy (Mild, Verified 10/12/23 10:43) ITCHY THROAT, RASH barium sulfate Allergy (Mild, Verified 10/12/23 10:43) Itch bee pollen [BEE STINGS] Allergy (Mild, Verified 10/12/23 10:43) ITCHY THROAT, RASH ciprofloxacin [From CIPRO] Allergy (Mild, Verified 10/12/23 10:43) ITCHY THROAT, RASH clarithromycin [From BIAXIN] Allergy (Mild, Verified 10/12/23 10:43) ITCHY THROAT, RASH diatrizoate meglumine [From GASTROGRAFIN] Allergy (Mild, Verified 10/12/23 10:43) ITCHY THROAT, RASH diatrizoate sodium [From GASTROGRAFIN] Allergy (Mild, Verified 10/12/23 10:43) ITCHY THROAT, RASH diclofenac [From VOLTAREN] Allergy (Mild, Verified 10/12/23 10:43) ITCHY THROAT, RASH erythromycin base [ERYTHROMYCIN BASE] Allergy (Mild, Verified 10/12/23 10:43) ITCHY THROAT, RASH gentamicin [GENTAMICIN] Allergy (Mild, Verified 10/12/23 10:43) ITCHY THROAT, RASH Iodinated Contrast Media [IVP DYE] Allergy (Mild, Verified 10/12/23 10:43) ITCHY THROAT, RASH levofloxacin [From LEVAQUIN] Allergy (Mild, Verified 10/12/23 10:43) ITCHY THROAT, RASH metronidazole [From FLAGYL] Allergy (Mild, Verified 10/12/23 10:43) ITCHY THROAT, RASH moxifloxacin [From AVELOX] Allergy (Mild, Verified 10/12/23 10:43) ITCHY THROAT, RASH Penicillins [PENICILLINS] Allergy (Mild, Verified 10/12/23 10:43) ITCHY THROAT, RASH shrimp [SHRIMP] Allergy (Mild, Verified 10/12/23 10:43) ITCHY THROAT, RASH Sulfa (Sulfonamide Antibiotics) [SULFA (SULFONAMIDE ANTIBIOTICS)] Allergy (Mild, Verified 10/12/23 10:43) ITCHY THROAT, RASH vancomycin [VANCOMYCIN] Allergy (Mild, Verified 10/12/23 10:43) ITCHY THROAT, RASH clindamycin Adverse Reaction (Intermediate, Verified 10/12/23 10:43) Unknown HPI HPI Comments History of Present Illness Details The patient is a 78 y/o woman with a complicated history which includes: COPD, KANDY, pulmonary HTN, history pulmonary emboli on chronic anticoagulation, lung CA Stage IIIA s/o neoadjuvant chemoradiation and Left upper lobe lobectomy. She did have a CT scan today that I personally reviewed. Has not been personally read by the radiologist. Based on my reading she has some pulmonary nodules some that are new 4 mm in the right major fissure area. Other nodules are stable. Other post operative and pulmonary fibrotic changes stable. The patient should get a CT scan in 6 months. Also to note, she did not tolerate the Incruse nor budesonide. Will consider Daliresp. She was admitted to [facility] with diverticulitis. She was placed on IV antibiotics but she left against medical advice because she did not like the antibiotic options. In the meantime she was having some issues with coughing up some blood. She is also concerned because on her visit to [facility] she did have a CT scan of the chest and she was told that she had significant scarring of her lungs in addition to lung volume loss. I have not looked at the CT scan back in reassured her that she has had this radiation fibrosis for long time and volume loss due to the scarring was present before. We did review her perfusion scan demonstrating no defects to suggest any blood clots. Interestingly in the quantitative study the patient did have 81% of the blood flow going to her right lung and 18% going to the left. This is likely due to her previous surgery and also radiation changes. 05/11/2023 the patient is here for a pulmonary follow-up visit. The patient continues to be about the same. she did have a excellent which she banged her head and bruised her forehead. She did go to the [facility] ED where she did have a CT scan of the brain demonstrating no acute bleeding. However she continued to have symptoms of headaches and she did follow-up with her primary care doctor who ordered a 2nd CT scan done at [facility]. We did personally reviewed demonstrating chronic changes without any acute bleed. The patient is complaining also of some chest discomfort some pleuritic components. Were awaiting her CT PET to better address her ongoing symptoms in addition to the 9 mm pulmonary nodule in the right middle lobe area. She continues use her oxygen with good effect. Although she feels like she is more dependent on specially when she desaturates on room air even when sitting. Sometimes she is okay and sometimes her oxygen drops. She is wondering why. Explained to the patient that she does not have any pulmonary reserve due to her significant scarring, radiation changes obstructive lung disease and also her surgical lung resection. The patient also has a component of pulmonary hypertension that appears to have gotten worse after her mitral clip. She is on the diuretics and is responding well to that. Although she is had to use a higher dose. Her blood work is reassuring her BUN is a little elevated but creatinine continues to be within normal. She continues use her BiPAP at nighttime as well. The therapy has been affecting beneficial. At this point we are going to await the PET scan to see those results in the meantime we did talk about her respiratory medications. She is tried multiple different inhalers she does not tolerate a lot of them. Adverse she does tolerate so therefore will continue. Will provide her with a short-acting beta agonist that she can use in between and also she can use her nebulizer while at home. 06/15/2023 the patient is here for a pulmonary follow-up visit. The patient overall has been feeling fair. She had a tooth extraction that then became very swollen and she went to the ER. The patient was found to have some the when the extracted area. Overall she is feeling better from that standpoint. She had a lot of swelling of her face and also over lower extremities with some discoloration of her skin. More recently she was at the mall after performing pulmonary rehab in the mall she was carry multiple bags and then she had to do a lot a walking because the escalator was down and she started developing heaviness in the chest area, pressure sensation moderate severity. Also noticed increased shortness of breath. At which point the patient did get help from a employee from the store that helped her with her back issues to a car. The patient at this point feels better. She is concerned about the event. We did go over the different possibilities. She needs to have a rescue inhaler with her in those cases to use it for her acute bronchospasms. The patient also will undergo a chest x-ray and also blood work to further address her symptoms. Explained to her that is reassuring that she does not have any significant coronary artery disease. Also it is reassuring that she recently had a PET scan that we personally reviewed demonstrating no significant findings as far as that nodular density in the right appears to have resolved and no evidence of any underlying concerning metabolic process. The patient has a trip planned to [place]. I did encourage her to go on this trip. Once have some results I will call her with the results of her x-ray and blood work. 07/20/2023 the patient is here for a pulmonary follow-up visit. The patient overall has been doing fairly well. She just returned from a trip to [place]. She had 1 for time with her family. She continues use her oxygen with a portable oxygen concentrator while being there. She did have a cough when she was down there but since she came back the cough has improved some. She also describes symptoms of chest pain and also tachycardia which have been exertional. She does mention that the time that it happened she was coming back from the [employer] and she was carrying some groceries and she took off her oxygen. And when she tried carrying the groceries she started having some left-sided chest pressure and also some tachycardia. I also did take it for walk in the office. We did walker with a portable oxygen concentrator and she became dyspneic although the pulse ox was stable and heart rate was also stable. My suspicion is that in view of her congestive heart failure and pulmonary hypertension and moderate degree of COPD she is having some demand symptoms when she exerts herself without the oxygen. Therefore explained to her that she should not take off the oxygen while exerting herself and lifting groceries or objects. The patient is wondering about her pulmonary hypertension. Explained to her that vasodilators therapy will be potentially problematic specially with her reactions in the past. The main treatment at this point will be diuresis. She is tolerating that well she will undergo blood work to further address that. We did review her PFTs that she had back last year in appears that her COPD did worsen with an FEV1 of 74% predicted which is moderate severity. The patient also underwent blood work and her venous gas demonstrated an elevated CO2 and also she had an elevated bicarb. Will go ahead and have a repeat the blood work at this time. She is also having some abdominal discomfort. I suspect that she has recurrence of her diverticulitis. I will give her Vantin which she tolerates and if the symptoms worsen she needs to either go to her primary care doctor seek medical advice. 08/24/2023 the patient is here for a pulmonary follow-up visit. She was recently hospitalized at [facility] apparently with diverticulitis and also with pneumonia. The patient had a repeat CT scan of the abdomen just yesterday. We will request the results from [place]. In the meantime the patient continues have shortness of breath with minimal activity. She does use her oxygen with good effect. She has been evaluated further for her pulmonary hypertension. She did speak to her specialists from [place] who wants her to undergo a cardiac catheterization. She is reluctant to go to [place]. 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 She in the meantime will have an echocardiogram I believe in [facility]. Based on those results additional evaluation may be warranted. The patient does have dyspnea on exertion. [place] heart Association class 3. I do believe that this is related to her underlying pulmonary hypertension along with her significant COPD and restrictive lung disease. The patient does complaint of a cough the cough tends to be croupy in nature. She likely has a component of tracheomalacia. She does have daytime drowsiness. Her [place] score is elevated 10/24. She has a hard time remembering things. I did download her BiPAP. Currently setting 13 overnight. Her AHI is actually elevated at 13. This was not the case before on the same settings that she has had multiple sleep studies. Initially I was going to put her on VPAP auto but I just went ahead and increase her pressures to 15/10 in view of her very sensitive response to change. She will let me know how these pressures are doing we can always download her machine online to make sure that her AHI is decreasing. The patient's last blood gas demonstrated component of chronic hypercarbic respiratory failure along with a metabolic alkalosis. Likely from diuresis and her renal adjustments to her hypercarbia. The patient is scheduled to undergo an overnight oximetry on her BiPAP and on 2 L of oxygen which she has been using. We will reassess and check her venous blood gas during the next visit. 09/14/2023 the patient is here for visit. The patient still has multiple complaints. She is nervous. She feels like her breathing is getting worse and she is using oxygen more often. She also complains of pleuritic discomfort on the left side of her chest. She was seen by Cardiology and they do not see any active coronary artery disease based on her to coronary artery angiograms. The patient does have indeed some pulmonary hypertension and some mitral stenosis secondary to her mitral clip. She is responding well to the diuretics. No role for vasodilators therapy. The patient did have an overnight oximetry which we reviewed. The patient does need to increase her oxygen with BiPAP. She increases from 2 L to 3 L at this time. She needs to have further education about her use the concentrator so request a [employer] since somebody to educate her on how to switch her concentrator at this time. Meantime the patient is complaining of neck pain and also numbness of her upper extremities. She is also having difficulty sleeping. Will go ahead and started on a small dose of gabapentin hopefully to help her with her neuropathic discomfort and also hopefully help her with her sleep. She is very sensitive to medications so she will start with 100 mg capsules which is very small dose and then increase it to 200 after a week if not any better. Seems that she was on Neurontin in the past and she did tolerated which is reassuring. 10/12/2023 the patient is here for a pulmonary follow-up visit. She has been complaining of right-sided chest discomfort now. Apparently she was in her car reason for something and she felt the uncomfortable pop on her right side of her chest. And now is tender to the touch hurts when she takes a deep breath in makes it difficult to breathe. She did go to an urgent care where she had an x-ray done. I do see a small hairline fracture on that right side. Therefore the patient will be uncomfortable for some time. The patient is concerned about the potential of lung collapse. Explained to her that this area does not appear to be displaced therefore some likely to be the case. However, in view of her significant symptoms in the fact that the radiology report once it was normal in the patient does have a history of cancer we should go ahead and request a CT scan to better address her pleuritic right-sided discomfort. The patient will be provided also with some pain medication although she is extremely sensitive to new medications. Therefore she can try the atenolol 3. To see this provides her with some relief because of the pain she understands that she needs to be read. I did give her a incentive spirometer so she can work on that. Her respiratory medications are the same. She is also using her BiPAP at night with the oxygen with good effect. She does complaint of additional dyspnea. [id number] severity. She is now relying on the oxygen more. She has noted that for the last 3 days she gained about 4 lb. She feels a little bit more bloated. She understands that she needs to take additional diuresis. [facility] Medical History DVT (deep venous thrombosis) COPD (chronic obstructive pulmonary disease) Compression fracture of body of thoracic vertebra ASD (atrial septal defect) Pleuritic chest pain History of COVID-19 Chronic anticoagulation Hypothyroidism GERD (gastroesophageal reflux disease) Hyperlipidemia Hypertension Factor 5 Leiden mutation, heterozygous History of non-ST elevation myocardial infarction (NSTEMI) Hypoxia Anxiety PTSD (post-traumatic stress disorder) Hemoptysis Dyspnea Tracheobronchitis CLARA positive Diverticulitis Allergic bronchitis (HFpEF) heart failure with preserved ejection fraction Subarachnoid bleed Insomnia Anti-phospholipid antibody syndrome Hypogammaglobulinemia Chronic respiratory failure Arterial insufficiency of lower extremity Complex regional pain syndrome i of right lower limb Post herpetic neuralgia Pulmonary hypertension Pericardial effusion Pulmonary emboli Pleural effusion Radiation fibrosis of lung Pneumonitis Pulmonary nodules KANDY treated with BiPAP Lung cancer Surgical History History of colonoscopy History of lung surgery History of tonsillectomy History of hysterectomy S/P mitral valve clip implantation History of cardiac cath Family History Sister No problems noted. Mother Cardiovascular disease Daughter Tachycardia Other KANDY (obstructive sleep apnea) Social History Household Members: None Housing: House Do you presently have visiting nurse or other home services: Yes Unable to assess alcohol history related to: Unknown Alcohol intake: former Comment: stand by assist with ambulation Patient Tobacco Use Status: Never used Tobacco Second Hand Smoke Exposure: No Advance Directives Date on File: 06/15/22 service: No Current occupational status: retired Review of Systems Const Denies chills, Reports daytime sleepiness, Reports fatigue, Denies fever(s), Denies frequent falls, Denies weakness, Denies weight gain and Denies weight loss ENT Denies change in voice and Denies dizziness Card Reports chest pain, Reports chest pain with activity, Reports rapid heart rate, Denies leg edema, Denies lightheadedness, Denies palpitations, Denies dyspnea, Reports dyspnea on exertion, Denies orthopnea and Denies other (loss of consciousness) Resp Reports cough, Reports pain on inspiration, Reports pain with cough, Denies dyspnea and Reports dyspnea on exertion GI Denies hematochezia and Denies change in stool character Musc Denies abnormal gait, Denies muscle weakness, Denies numbness, Denies radiating pain into limb and Denies tingling Skin/Breast Reports change in pigmentation Neuro Denies abnormal gait, Denies dizziness, Denies frequent falls, Denies numbness, Denies tingling and Denies weakness Endo Reports fatigue and Denies palpitations Physical Exam Vital Signs: Last Vital Signs Pulse 81 10/12/23 10:40 BP 128/60 10/12/23 10:40 Pulse Ox 98 10/12/23 10:40 Oxygen Delivery Method Room Air 10/12/23 10:40 BMI result Body Mass Index 23.3 Last Vital Signs Temp 97.7 F 06/20/22 08:00 Pulse 90 06/20/22 08:00 Resp 16 06/20/22 08:00 BP 137/60 06/20/22 08:00 Pulse Ox 93 06/20/22 08:00 O2 Del Method 06/20/22 08:00 O2 Flow Rate 2 06/20/22 08:00 FiO2 45 06/14/22 11:07 BMI result Body Mass Index 23.0 Const General: cooperative, comfortable, alert and awake Orientation/consciousness: patient oriented x3 HEENT Head: Yes atraumatic Eyes General: appearance normal, both eyes and all related structures Neck Neck: Yes trachea midline, Yes supple and Yes no JVD Chest Chest palpation & inspection: tenderness rib (right side) Resp Effort & Inspection: normal respiratory effort, no cough and No prolonged expiratory phase Auscultation: no rales, no rhonchi, no wheezes and diminished lung sounds Cardio Rate: regular rate Rhythm: regular rhythm Heart sounds: S1 normal heart sound present, S2 normal heart sound present and Abnormal heart opening sounds loud S2 GI Auscultation: normal bowel sounds Skin General skin exam: purpura and scars Neuro General: patient oriented x3 and no focal motor deficits Extrem General: Yes no clubbing, cyanosis or edema Assessment & Plan Assessment & Plan (1) Lung cancer: Code(s): C34.90 - Malignant neoplasm of unspecified part of unspecified bronchus or lung Qualifiers: Laterality: left Lung location: upper lobe of lung Qualified Code(s): C34.12 - Malignant neoplasm of upper lobe, left bronchus or lung (2) Pulmonary hypertension: Comment: severe based on RHC, moderate based on recent echo Code(s): I27.20 - Pulmonary hypertension, unspecified (3) Pulmonary nodules: Code(s): R91.8 - Other nonspecific abnormal finding of lung field (4) Chronic respiratory failure: Code(s): J96.10 - Chronic respiratory failure, unspecified whether with hypoxia or hypercapnia Qualifiers: Respiratory failure complication: hypoxia and hypercapnia Qualified Code(s): J96.11 - Chronic respiratory failure with hypoxia; J96.12 - Chronic respiratory failure with hypercapnia (5) KANDY treated with BiPAP: Code(s): G47.33 - Obstructive sleep apnea (adult) (pediatric) (6) Radiation fibrosis of lung: Code(s): J70.1 - Chronic and other pulmonary manifestations due to radiation (7) COPD (chronic obstructive pulmonary disease): Code(s): J44.9 - Chronic obstructive pulmonary disease, unspecified Qualifiers: COPD type: chronic bronchitis Chronic bronchitis type: simple Qualified Code(s): J41.0 - Simple chronic bronchitis (8) Diastolic CHF: Code(s): I50.30 - Unspecified diastolic (congestive) heart failure Qualifiers: Heart failure chronicity: chronic Qualified Code(s): I50.32 - Chronic diastolic (congestive) heart failure (9) (HFpEF) heart failure with preserved ejection fraction: Code(s): I50.30 - Unspecified diastolic (congestive) heart failure Qualifiers: Heart failure chronicity: chronic Qualified Code(s): I50.32 - Chronic diastolic (congestive) heart failure (10) Abdominal pain: Comment: h/o diverticulitis Code(s): R10.9 - Unspecified abdominal pain Qualifiers: Abdominal location: left lower quadrant Qualified Code(s): R10.32 - Left lower quadrant pain (11) Dental abscess: Code(s): K04.7 - Periapical abscess without sinus (12) Pleuritic chest pain: Comment: Likely rib fracture Code(s): R07.81 - Pleurodynia Plan prednisone 2.5 mg Ambien for sleep continue Advair ASHA as needed CT chest continue ASHA (xopenex) as needed CPT with acapella valve fluticasone Oxygen 2L/pulse with activity and sleep. POC Inogen G5 duiresis as tolerated continue BIPAP at night with O2. AHI elevated->adjusted BIPAP 13/9 to 15/10 2.5L Tylenol#3 PRN for pain ISS F/U 6-8 weeks Orders: Orders CT chest wo IV con Today C34.12 - Malignant neoplasm of upper lobe, left bronchus or lung, S22.39XA - Fracture of one rib, unspecified side, initial encounter for closed fracture Medications: New acetaminophen-codeine 300-15 mg 1 tab PO Q8H PRN 30 tabs 0RF pain 10 days Coding Level of Care Code Est Pt Level 5 (20226) Diagnoses Malignant neoplasm of upper lobe of left lung C34.12 Laterality: left Lung location: upper lobe of lung Pulmonary hypertension I27.20 Pulmonary nodules R91.8 Chronic respiratory failure with hypoxia and hypercapnia J96.11; J96.12 Respiratory failure complication: hypoxia and hypercapnia KANDY treated with BiPAP G47.33 Radiation fibrosis of lung 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 Chronic heart failure with preserved ejection fraction I50.32 Heart failure chronicity: chronic Left lower quadrant abdominal pain R10.32 Abdominal location: left lower quadrant Dental abscess K04.7 Pleuritic chest pain R07.81 Time Spent (min) 60
== END 2023-10-12 11:22 | disposition home or self-care (01) ==
PROVIDERS: PCP Internal Medicine; Visit Provider Hospitalist
DX: C34.12 Malignant neoplasm of upper lobe, left bronchus or lung (principal); I27.20 Pulmonary hypertension, unspecified; R91.8 Other nonspecific abnormal finding of lung field; J96.11 Chronic respiratory failure with hypoxia; J96.12 Chronic respiratory failure with hypercapnia; G47.33 Obstructive sleep apnea (adult) (pediatric); J70.1 Chronic and other pulmonary manifestations due to radiation; J41.0 Simple chronic bronchitis; I50.32 Chronic diastolic (congestive) heart failure; R10.32 Left lower quadrant pain; K04.7 Periapical abscess without sinus; R07.81 Pleurodynia
CPT/HCPCS: 99215

== ENCOUNTER → 2023-10-12 10:34 | Outpatient (BNVA) | payer MEDICARE, SELFPAY | PROVIDERS: PCP Internal Medicine; Visit Provider Hospitalist | DX: C34.12 Malignant neoplasm of upper lobe, left bronchus or lung (principal); J96.11 Chronic respiratory failure with hypoxia; J41.0 Simple chronic bronchitis; J70.1 Chronic and other pulmonary manifestations due to radiation; I27.20 Pulmonary hypertension, unspecified; I11.0 Hypertensive heart disease with heart failure; I50.32 Chronic diastolic (congestive) heart failure; G47.33 Obstructive sleep apnea (adult) (pediatric); R10.32 Left lower quadrant pain; K04.7 Periapical abscess without sinus; R07.81 Pleurodynia; R91.8 Other nonspecific abnormal finding of lung field | CPT/HCPCS: 99212 ==

== ENCOUNTER 2023-10-14 15:50 | Emergency (ER) | payer MEDICARE, SELFPAY ==
--- NOTE | ~2023-10-14 | US_ITS ---
EXAMINATION: US VENOUS ULTRASOUND WITH DOPPLER LOWER EXTREMITY, BILATERAL CLINICAL INFORMATION: Bilateral lower extremity swelling. History of deep venous thrombosis, on Coumadin. COMPARISON: Bilateral lower extremity Doppler venous ultrasound of 05/01/2023 TECHNIQUE: Ultrasound of the deep veins is performed from the hip to the calf with compression sonography and color and pulse Doppler assessment. Spectral analysis with color-flow imaging is performed. FINDINGS: RIGHT: There is normal venous compression and respiratory variation and augmented flow. The visualized common femoral vein, superficial femoral vein, profunda femoral vein, popliteal vein, posterior tibial and peroneal venous segments show no evidence of deep venous thrombosis. There is no significant popliteal fossa cyst. Small echogenic focus is noted along the posterior aspect of the popliteal vein which may represent a small calcification. LEFT: There is normal venous compression and respiratory variation and augmented flow. The visualized common femoral vein, superficial femoral vein, profunda femoral vein, popliteal vein, posterior tibial and peroneal venous segments show no evidence of deep venous thrombosis. There is no significant popliteal fossa cyst. A small echogenic focus is noted along the posterior wall of the left greater saphenous vein which may represent a small calcification. If the patient's symptoms persist, followup ultrasound in 5 days 7 days might be of value to exclude proximal propagation from a non-visualized calf vein. US/US venous duplex LE BI IMPRESSION: No DVT demonstrated in the bilateral lower extremity.
--- NOTE | ~2023-10-14 | XR_ITS ---
EXAMINATION: XR CHEST CLINICAL INFORMATION: Chest pain COMPARISON: Multiple priors with last Chest x-ray of 06/15/2023. Chest CT of images of PET/CT of 05/16/2023 TECHNIQUE: Frontal view of the chest was obtained. FINDINGS: Cardiomediastinal silhouette is stable with cardiomegaly. Note is again made of mild left lung volume loss. Small left pleural effusion is a stable finding compared to previous CT scan of 05/16/2023. No new airspace opacities are noted. No evidence of changes of overt pulmonary edema, right pleural effusion or pneumothorax. Scattered aortic calcifications. XR/XR chest 1V IMPRESSION: Cardiomegaly. Chronic small left pleural effusion. No radiographic evidence of pneumonia or changes of overt pulmonary edema.
[2023-10-14 16:04] VITALS: BP 136/80; BP 173/89; PULSE 85; PULSE 92; RESP 18; TEMP 36.7; O2SAT 99; BMI 24.8
--- NOTE | 2023-10-14 16:21 | ECG_ITS ---
Test Reason : SOB Blood Pressure : / mmHG Vent. Rate : 080 BPM Atrial Rate : 080 BPM P-R Int : 174 ms QRS Dur : 124 ms QT Int : 412 ms P-R-T Axes : 060 -58 034 degrees QTc Int : 475 ms Normal sinus rhythm Possible Left atrial enlargement Right bundle branch block Left anterior fascicular block Bifascicular block Minimal voltage criteria for LVH, may be normal variant ( R in aVL ) Possible Lateral infarct , age undetermined Cannot rule out Inferior infarct (masked by fascicular block?) , age undetermined Abnormal ECG When compared with ECG of 06-APR-2023 21:08, No significant change was found Referred By: Jessica Bermeo Electronically Signed By:INGRID TILLMAN MD
--- NOTE | 2023-10-14 16:26 | ED_ITS ---
HPI - General Adult General Chief complaint: General Medical Stated complaint: swollen legs xdays, hx of CHF, asthma, cancer Time Seen by Provider: 10/14/23 16:11 History of Present Illness HPI narrative: Patient is an 78-year-old female with a history of congestive heart failure with preserved EF history of factor 5 Leiden history of DVT in the past. Currently on Coumadin. Presents today with having bilateral increased leg swelling. Been on Lasix 40 mg twice a day. The amount he is unchanged. Patient has been compliance with medication. There is mild chest tightness that patient claims has been on an off it has been constant not changed. Patient denies any fever chills. Denies any coughing congestion upper respiratory symptoms. Denies any diaphoresis. Positive shortness of breath on exertion which is chronic. Patient's baseline is not on oxygen. Use the same amount of pillows to sleep at night. No fever no chills. Related Data Home Medications ?Medication ?Instructions ?Recorded ?Confirmed levothyroxine 25 mcg tablet 25 mcg PO MOTUWETHFR@0600 06/14/22 09/04/23 (Synthroid) CPAP (CPAP Machine/Device) 06/30/22 09/04/23 Oxygen Home Use 06/30/22 09/04/23 nebulizers 06/30/22 09/04/23 warfarin 1 mg tablet (Jantoven) mg PO 06/30/22 09/04/23 epinephrine 0.3 mg/0.3 mL IM 07/14/22 09/04/23 injection, auto-injector diazepam 5 mg tablet 5 mg PO BID Anxiety and Sleep 11/21/22 09/04/23 triamcinolone acetonide 0.1 % 1 appl topical BID-TID 05/29/23 09/04/23 topical cream prednisone 2.5 mg tablet 2.5 mg PO Q OTHER DAY 08/09/23 09/04/23 triamcinolone acetonide 0.1 % topical 08/25/23 09/04/23 topical ointment Previous Rx's ?Medication ?Instructions ?Recorded meclizine 25 mg tablet 25 mg PO TID PRN dizziness 14 days 09/12/22 #42 tabs albuterol sulfate 2.5 mg/3 mL 2.5 mg (3 mL) inhalation Q6H PRN 09/21/22 (0.083 %) solution for nebulization shortness of breath or wheezing 30 days #180 mL Advair HFA 230 mcg-21 2 puff inhalation BID 90 days #36 03/07/23 mcg/actuation aerosol inhaler grams (fluticasone propion-salmeterol) rosuvastatin 10 mg tablet 10 mg PO Q OTHER DAY #45 tabs 06/26/23 levocetirizine 5 mg tablet 5 mg PO DAILY 90 days #90 tabs 07/20/23 montelukast 10 mg tablet 10 mg PO DAILY #90 tabs 07/20/23 potassium chloride 20 mEq oral 20 meq PO DAILY #50 ea 07/20/23 packet trazodone 50 mg tablet 100 mg (2 x 50 mg) PO BEDTIME #180 07/20/23 tabs metoprolol succinate 50 mg 50 mg PO BID #120 tabs 08/14/23 tablet,extended release 24 hr (Toprol XL) gabapentin 100 mg capsule 200 mg (2 x 100 mg) PO BEDTIME 30 09/14/23 days #60 caps furosemide 40 mg tablet 40 mg PO BID 90 days #180 tabs 09/15/23 acetaminophen 300 mg-codeine 15 mg 1 tab PO Q8H PRN pain 10 days #30 10/13/23 tablet tabs Allergies Allergy/AdvReac Type Severity Reaction Status Date / Time avocado [AVOCADO] Allergy Mild ITCHY Verified 10/14/23 16:09 THROAT, RASH azithromycin [AZITHROMYCIN] Allergy Mild ITCHY Verified 10/12/23 10:43 THROAT, RASH barium iodide [BARIUM IODIDE] Allergy Mild ITCHY Verified 10/12/23 10:43 THROAT, RASH barium sulfate Allergy Mild Itch Verified 10/12/23 10:43 bee pollen [BEE STINGS] Allergy Mild ITCHY Verified 10/12/23 10:43 THROAT, RASH ciprofloxacin [From CIPRO] Allergy Mild ITCHY Verified 10/12/23 10:43 THROAT, RASH clarithromycin [From BIAXIN] Allergy Mild ITCHY Verified 10/12/23 10:43 THROAT, RASH diatrizoate meglumine Allergy Mild ITCHY Verified 10/12/23 10:43 [From GASTROGRAFIN] THROAT, RASH diatrizoate sodium Allergy Mild ITCHY Verified 10/12/23 10:43 [From GASTROGRAFIN] THROAT, RASH diclofenac [From VOLTAREN] Allergy Mild ITCHY Verified 10/12/23 10:43 THROAT, RASH erythromycin base Allergy Mild ITCHY Verified 10/12/23 10:43 [ERYTHROMYCIN BASE] THROAT, RASH gentamicin [GENTAMICIN] Allergy Mild ITCHY Verified 10/12/23 10:43 THROAT, RASH Iodinated Contrast Media Allergy Mild ITCHY Verified 10/12/23 10:43 [IVP DYE] THROAT, RASH levofloxacin [From LEVAQUIN] Allergy Mild ITCHY Verified 10/12/23 10:43 THROAT, RASH metronidazole [From FLAGYL] Allergy Mild ITCHY Verified 10/12/23 10:43 THROAT, RASH moxifloxacin [From AVELOX] Allergy Mild ITCHY Verified 10/12/23 10:43 THROAT, RASH Penicillins [PENICILLINS] Allergy Mild ITCHY Verified 10/12/23 10:43 THROAT, RASH shrimp [SHRIMP] Allergy Mild ITCHY Verified 10/12/23 10:43 THROAT, RASH Sulfa (Sulfonamide Allergy Mild ITCHY Verified 10/12/23 10:43 Antibiotics) THROAT, [SULFA (SULFONAMIDE RASH ANTIBIOTICS)] vancomycin [VANCOMYCIN] Allergy Mild ITCHY Verified 10/12/23 10:43 THROAT, RASH clindamycin AdvReac Intermediate Unknown Verified 10/12/23 10:43 Review of Systems 2 Review of Systems: No fever no chills no diaphoresis Yes all other systems are reviewed and are negative PMFSH Past Medical History Attestation statement: The following information was validated with the patient. Medical History DVT (deep venous thrombosis) COPD (chronic obstructive pulmonary disease) Compression fracture of body of thoracic vertebra ASD (atrial septal defect) Pleuritic chest pain History of COVID-19 Chronic anticoagulation Hypothyroidism GERD (gastroesophageal reflux disease) Hyperlipidemia Hypertension Factor 5 Leiden mutation, heterozygous History of non-ST elevation myocardial infarction (NSTEMI) Hypoxia Anxiety PTSD (post-traumatic stress disorder) Hemoptysis Dyspnea Tracheobronchitis CLARA positive Diverticulitis Allergic bronchitis (HFpEF) heart failure with preserved ejection fraction Subarachnoid bleed Insomnia Anti-phospholipid antibody syndrome Hypogammaglobulinemia Chronic respiratory failure Arterial insufficiency of lower extremity Complex regional pain syndrome i of right lower limb Post herpetic neuralgia Pulmonary hypertension Pericardial effusion Pulmonary emboli Pleural effusion Radiation fibrosis of lung Pneumonitis Pulmonary nodules KANDY treated with BiPAP Lung cancer Surgical History History of colonoscopy History of lung surgery History of tonsillectomy History of hysterectomy S/P mitral valve clip implantation History of cardiac cath Family History Family History Sister No problems noted. Mother Cardiovascular disease Daughter Tachycardia Other KANDY (obstructive sleep apnea) Social History Social History Household Members: None Housing: House Do you presently have visiting nurse or other home services: Yes Unable to assess alcohol history related to: Unknown Alcohol intake: former Comment: stand by assist with ambulation Patient Tobacco Use Status: Never used Tobacco Smoked in Last 30 Days: No Second Hand Smoke Exposure: No Use of substances other than those prescribed or required for medical reasons: No Advance Directives: Yes Advance Directives on File: Yes Advance Directives Date on File: 06/15/22 service: No Current occupational status: retired Physical Exam ED Vital Signs: Vital Signs - 24 hr 10/14/23 16:04 10/14/23 18:08 10/14/23 20:18 Temperature 98.0 F 98.2 F 98.5 F Pulse Rate 92 82 82 Respiratory Rate 18 16 14 Blood Pressure 173/89 H 131/69 140/80 H Pulse Oximetry 99 99 100 Oxygen Delivery Method Nasal Cannula Nasal Cannula Room Air Nasal Cannula Oxygen Flow Rate 2 10/14/23 22:42 Temperature 98.4 F Pulse Rate 87 Respiratory Rate 18 Blood Pressure 153/89 H Pulse Oximetry 99 Oxygen Delivery Method Room Air Oxygen Flow Rate BMI result Body Mass Index 24.8 Appearance: Alert. Oriented X3. No acute distress. Eyes: Pupils equal, round and reactive to light. ENT: Pharynx normal. Neck: Normal inspection. Neck supple. No lymph nodes noted. No crepitus CVS: Normal heart rate and rhythm. Pulses normal. Normal S1 and S2 Respiratory: No respiratory distress. Breath sounds normal. No Wheezing. No rales Abdomen: Soft and nontender. No rigidity. No distention. good BS x4 Skin: Skin warm and dry. Normal skin color. Normal skin turgor. Extremities: 2+ bilateral lower extremity edema. Neurovascular intact to all extremities. No Lacerations. No Rash Neuro: Oriented X 3. No motor deficit. No sensory deficit. Moving all extermities. No slurred speech Medications Administered Discontinued Medications Generic Name Dose Route Start Last Admin Trade Name Kobi PRN Reason Stop Dose Admin Diazepam 2 mg 10/14/23 23:02 10/14/23 23:07 Diazepam 2 Mg Tablet PO 10/14/23 23:03 2 mg ONCE ONE Administration Medical Decision Making Medical Decision Making [facility] Narrative: Patient is a 78 old female with a history of leg swelling complaining of slightly worsened swelling. She has a history of factor 5 Leiden. Currently is on Coumadin. Doppler of the bilateral lower extremity was done. It did not show any acute evidence of DVT. Patient's leg has no redness no signs of infection.. BNP was approximately 450 this is approximately baseline. Patient's electrolytes are unremarkable. Urine showed no signs of infection. Flu COVID RSV were all negative. Chest x-ray showed no focal infiltrate. Differential Diagnosis Differential Diagnoses: The differential diagnosis associated with the presentation includes Congestive heart failure, cellulitis, chronic leg edema, DVT Admission/Observation Consideration of admission/observation: Escalation of care including admission/observation considered Lab Data [facility] Lab Attestation statement: I reviewed the patient's lab results. 10/14/23 17:30 10/14/23 17:30 Labs: Lab Results 10/14/23 10/14/23 10/14/23 Range/Units 17:09 17:30 18:10 WBC 11.7 H (4.8-10.8) X10*3/uL RBC 3.76 L (4.20-5.50) X10*6/uL Hgb 12.4 (12.0-16.0) g/dl Hct 38.3 (37.0-47.0) % MCV 101.9 H (80.0-98.0) fL MCH 33.0 (27.0-33.0) pg MCHC 32.4 (31.0-35.0) g/dl RDW 13.9 (11.0-16.0) % Plt Count 209 (160-400) X10*3/uL MPV 10.9 (9.4-12.3) fL Immature Gran % (Auto) 1.4 H (0.0-0.4) % Neut % (Auto) 80.3 H (45-73) % Lymph % (Auto) 8.6 L (20-40) % [place] % (Auto) 8.4 (2-11) % Eos % (Auto) 0.8 (0-4) % Baso % (Auto) 0.5 (0-2) % Lymph # (Auto) 1.0 L (1.2-4.9) X10*3/uL [place] # (Auto) 1.0 (0.1-1.2) X10*3/uL Eos # (Auto) 0.1 (0.0-0.4) X10*3/uL Baso # (Auto) 0.1 (0.0-0.2) X10*3/uL Abs Immat Gran (auto) 0.16 H (0.00-0.03) X10*3/uL Absolute Neuts (auto) 9.4 H (2.0-8.3) x10*3/uL Absolute Nucleated RBC 0.000 (0.0-0.012) X10*3/uL Nucleated RBC % (auto) 0.0 (0.0-0.2) /100WBC PT 21.7 H D (11.1-13.3) SEC INR 1.8 H (0.9-1.1) Sodium 137 (135-145) mmol/L Potassium 4.1 (3.3-5.1) mmol/L Chloride 100 (96-108) mmol/L Carbon Dioxide 28 (22-29) mmol/L Anion Gap 13 (12-20) BUN 22 H (9-16) mg/dL Creatinine 0.82 (0.5-1.4) mg/dL Estim Creat Clear Calc 47.2 Estimated GFR > 60 Random Glucose 106 (60-115) mg/dL Calcium 10.0 (8.4-10.2) mg/dL Total Bilirubin 0.5 (0.0-1.0) mg/dL Direct Bilirubin 0.2 (0.0-0.5) mg/dL AST 36 H (5-31) U/L ALT 28 (0-31) U/L Alkaline Phosphatase 67 (39-117) U/L Troponin I High Sens 9.4 (<3.5-17.0) ng/L B-Natriuretic Peptide 432 H (<100) pg/mL Total Protein 7.2 (6.5-8.0) g/dL Albumin 3.7 (3.5-5.0) g/dL Urine Color Yellow Urine Appearance Clear Urine pH 8.0 (5.0-9.0) Ur Specific Paicines 1.010 (1.005-1.025) Urine Protein Negative (Neg-Trace) mg/dL Urine Glucose (UA) Negative (Negative) mg/dL Urine Ketones Negative (Negative) mg/dL Urine Blood Negative (Negative) Urine Nitrite Negative (Negative) Ur Leukocyte Esterase Negative (Negative) Urine RBC 0-2 (0-2) /HPF Urine WBC 0-5 (0-5) /HPF Ur Squamous Epith Cells 0-2 (0-2) /HPF Urine Bacteria None Seen (None Seen) Hyaline Casts 0-2 (0-2) /LPF Influenza Type A (PCR) NEGATIVE (Negative) Influenza Type B (PCR) NEGATIVE (Negative) RSV RNA Qual (PCR) NEGATIVE (Negative) SARS-CoV-2 RNA (RT-PCR) NEGATIVE (Negative) Independent Interpretation I performed an independent interpretation of an: EKG (Sinus heart rate is 80 positive right bundle branch block old) and Plain X-Ray (Chest x-ray grossly negative for acute infiltrate) Radiology Impression Discussion of test interpretation with radiology: I have reviewed the radiologist's reading. Radiologist Impression: Radiology reading of the chest x-ray and ultrasound reviewed External Record Review External record reviewed: Inpatient record Chronic Conditions Congestive heart failure preserved EF, anxiety, insomnia, factor 5 Leiden, peripheral vascular disease Discharge Plan Discharge Clinical Impression: Pedal edema Patient Disposition: Home, Self-Care Instructions: Leg Edema (ED) Prescriptions: No Action meclizine 25 mg tablet 25 mg PO TID PRN (Reason: dizziness) 14 Days Qty: 42 0RF albuterol sulfate 2.5 mg /3 mL (0.083 %) solution for nebulization 2.5 mg inhalation Q6H PRN (Reason: shortness of breath or wheezing) 30 Days Qty: 180 11RF Advair HFA 230-21 mcg/actuation HFA aerosol inhaler 2 puff inhalation BID 90 Days Qty: 36 4RF rosuvastatin 10 mg tablet 10 mg PO Q OTHER DAY Qty: 45 3RF potassium chloride 20 mEq packet 20 meq PO DAILY Qty: 50 3RF furosemide 40 mg tablet 40 mg PO BID 90 Days Qty: 180 3RF Rx Instructions: Current dose is 40mg twice a day. acetaminophen-codeine 300-15 mg tablet 1 tab PO Q8H PRN (Reason: pain) 10 Days Qty: 30 0RF levothyroxine [Synthroid] 25 mcg tablet 25 mcg PO MOTUWETHFR@0600 diazepam 5 mg tablet 5 mg PO BID warfarin [Jantoven] 1 mg tablet PO (DME) nebulizers Misc See Rx Instructions .Route Rx Instructions: As directed (DME) CPAP Machine/Device Device See Rx Instructions .Route Rx Instructions: As directed (DME) Oxygen Home Use Kit See Rx Instructions .Route Rx Instructions: As directed epinephrine 0.3 mg/0.3 mL auto-injector IM metoprolol succinate [Toprol XL] 50 mg tablet extended release 24 hr 50 mg PO BID Qty: 120 3RF prednisone 2.5 mg tablet 2.5 mg PO Q OTHER DAY triamcinolone acetonide 0.1 % cream 1 appl topical BID-TID levocetirizine 5 mg tablet 5 mg PO DAILY 90 Days Qty: 90 3RF trazodone 50 mg tablet 100 mg PO BEDTIME Qty: 180 3RF montelukast 10 mg tablet 10 mg PO DAILY Qty: 90 3RF triamcinolone acetonide 0.1 % ointment topical gabapentin 100 mg capsule 200 mg PO BEDTIME 30 Days Qty: 60 5RF Referrals: Caitlyn Bowie MD [Primary Care Provider] - Print Language: Ecuadorean
--- OUTSIDE RECORDS SUMMARY | 2023-10-14 16:26 | XMS_ITS | Continuity of Care Document ---
Author Organization [facility] Address [address] [place] [address]- Care Team Providers Care Dental Ceramist Assistant Name Role Phone Caitlyn Bowie MD Primary Care Physician [place] [facility] [place] 03/08/22 - 03/15/22 [facility] [address] [place] [address]- Encounter Diagnosis COVID(Discharge Diagnosis) - 03/08/22 Attending Physician: Tez Capellan MD Allergies, Adverse Reactions, Alerts Substance Reaction Severity Status ciprofloxacin Active gentamicin Active erythromycin Active penicillin 1 Active vancomycin Active ipratropium Active morphine Active barium sulfate Active sulfa drugs Active iodinated radiocontrast dyes Active Voltaren Active Zithromax Active Flagyl Active Novocain Active Biaxin Active Gastrografin Active Avelox Active Bee Stings Active Contrast Dye Active Mold Active Shrimp Active Avocado Active Levaquin Avocado Active 1Allergy testing doen 09/26 was negative so unlikely she is allergic to this Immunizations Given and Recorded Vaccine Date Status Refusal Reason pneumococcal 23-valent vaccine 08/31/21 Recorded pneumococcal 23-valent vaccine 03/25/16 Given pneumococcal 23-valent vaccine 05/09/11 Given influenza virus vaccine, inactivated 05/15/21 Luis rded influenza virus vaccine, inactivated 04/27/20 Luis rded influenza virus vaccine, inactivated 04/11/18 Give n influenza virus vaccine, inactivated 05/07/17 Luis rded influenza virus vaccine, inactivated 04/16/17 Give n SARS-CoV-2 (COVID-19) mRNA-1273 vaccine 09/03/20 R ecorded SARS-CoV-2 (COVID-19) mRNA-1273 vaccine 08/06/20 R ecorded Influenza Virus Vaccine (oldterm) 04/22/19 Recorde d tetanus/diphtheria/pertussis, acel(Tdap) 02/28/16 Given pneumococcal 13-valent vaccine 04/21/14 Given Medications Advair HFA 230 mcg / 21 mcg 2 puffs, Inhalation, 2 times a day Start Date: 09/06/19 Status: Ordered albuterol 0.083% inhalation solution 3 mL = 2.5 mg, Inhalation, Every 6 hours, PRN for wheezing, # 60 each, 0 Refills, Maintenance, 01/26/18 16:35:05 EDT, Solution Start Date: 01/26/18 Status: Ordered baclofen 5 mg oral tablet 1 tablet = 5 mg, By Mouth, 2 times a day, PRN as needed for muscle spasm, # 30 tablet, 0 Refills, Maintenance, 02/10/22 9:05:00 EDT, Tablet, [facility], Partial fill upon patient request if the prescription is for a schedule II opioid drKaylen. Start Date: 02/10/22 Status: Ordered cetirizine 10 mg oral tablet 1 tablet = 10 mg, By Mouth, Daily, PRN for allergy symptoms, # 10 tablet, 0 Refills, Maintenance, 11/06/21 12:45:00 EDT, Tablet, Partial fill upon patient request if the prescription is for a schedule II opioid drug. Start Date: 11/06/21 Status: Ordered docusate sodium 100 mg oral capsule 100 mg, 1, capsule, By Mouth, 2 times a day, PRN, Refills 0, Maintenance, for constipation, 07/03/21 12:28:00 EST, Partial fill upon patient request if the prescription is for a schedule II opioid drug. Start Date: 07/03/21 Status: Ordered EPINEPHrine 0.3 mg injectable solution = 0.3 mg, Intramuscular, Once, PRN Anaphylactic Reaction Start Date: 04/21/21 Status: Ordered Flonase 50 mcg/inh nasal spray 2 sprays, Nares, Both, 2 times a day, 0 Refills, Maintenance, 11/06/21 12:44:00 EDT, [place], Partialfill upon patient request if the prescription is for a schedule II opioid drug. Start Date: 11/06/21 Status: Ordered furosemide 20 mg oral tablet 1, tablet, By Mouth, Daily, PRN, # 90 tablet, Refills 2, NEEDED FOR LEG SWELLING, Route to Pharmacy Electronically, [facility], 160, cm, 12/23/21 8:08:00 EDT, Height, 59.2, kg, 11/18/21 9:04:00 EDT, Dry Weight Start Date: 12/23/21 Status: Ordered Lidocaine Viscous 2% solution 5 mL = 0.1 Gm, Topically, 3 times a day with meals, PRN for mouth sore pain, Swish and spit., # 20 mL, 0 Refills, Acute 03/08/23 13:25:00 EDT, 03/08/22 13:24:00 EDT, Solution, [facility], do not fill unless pt calls., 5 mL Topically 3 ti... Start Date: 03/08/22 Stop Date: 03/08/23 Status: Ordered meclizine 25 mg oral tablet See Instructions, PRN as needed for dizziness, can take extra 25mg for up to four per day, # 60 tablet, 4 Refills, Physician Stop, 09/30/21 13:21:00 EDT, [facility], 160, cm, 09/24/21 16:15:00 EDT, Height, 57.5, kg, 09/24/21 1:23:00 EDT... Start Date: 09/30/21 Status: Ordered omeprazole 40 mg oral enteric coated capsule 1 capsule = 40 mg, By Mouth, Daily, # 5 capsule, 0 Refills, Maintenance, 11/09/21 9:33:00 EDT, EC Capsule, [facility], Partial fill upon patient request if the prescription is for a schedule II opioid drug., 160, cm, 11/09/21 1:59:00 EDT... Start Date: 11/09/21 Status: Ordered predniSONE 5 mg oral tablet 1 tablet = 5 mg, By Mouth, Every 48 hours Start Date: 07/03/21 Status: Ordered rosuvastatin 10 mg oral tablet 1 tablet = 10 mg, By Mouth, Every Monday, Monday and Monday Start Date: 04/21/21 Status: Ordered Senna 8.6 mg oral tablet 17.2 mg, 2, tablet, By Mouth, Daily at bedtime, Refills 0, Maintenance, 01/24/22 11:56:00 EDT, Partial fill upon patient request if the prescription is for a schedule II opioid drug. Start Date: 01/24/22 Status: Ordered Singulair 10 mg oral tablet 10 mg, 1, tablet, By Mouth, Daily in PM, Dr. Kelly, # 30 tablet, Refills 0, Maintenance, 08/24/17 13:50:25 EST Start Date: 08/24/17 Status: Ordered Synthroid 0.025 mg oral tablet 1 tablet = 25 mcg, By Mouth, Daily, monday - monday and 2 tablets on monday and monday, # 90 tablet, 9 Refills, Maintenance, 07/20/17 12:24:00 EST, Tablet, No substitution. Andres necessary. Start Date: 07/20/17 Stop Date: 05/16/18 Status: Ordered tiZANidine 2 mg oral tablet 2 mg, 1, tablet, By Mouth, 3 times a day, PRN, may cause drowsiness, # 28 tablet, Refills 0, Tot. Refills 0, Maintenance, as needed for muscle spasm, 02/14/22 15:52:00 EDT, Route to Pharmacy Electronically, [facility], Partial fill upon... Start Date: 02/14/22 Stop Date: 02/28/22 Status: Ordered Toprol XL 25 mg oral tablet, extended release 25 mg, 1, tablet, By Mouth, 2 times a day, Refills 0, Maintenance, 09/24/21 11:35:00 EDT, Partial fill upon patient request if the prescription is for a schedule II opioid drug. Start Date: 09/24/21 Status: Ordered trazodone 50 mg oral tablet 2 tablet = 100 mg, By Mouth, Daily at bedtime, Dr. Kelly, 0 Refills, Maintenance, 02/14/15 9:19:23 EDT, Tablet Start Date: 02/14/15 Status: Ordered Valium 5 mg oral tablet See Instructions, PRN, Take 2.5mg to 5mg by mouth twice a day as needed for anxiety and sleep., Refills 0, Maintenance, as needed for anxiety, 09/24/21 11:33:00 EDT, Instructions Replace Required Details, Partial fill upon patient request if the presc... Start Date: 09/24/21 Status: Ordered Ventolin HFA 108 mcg/inh inhalation aerosol with adapter 2 puffs, Inhalation, Every 6 hours, PRN Wheezing/Shortness of Breath, # 18 Gm, 0 Refills, Maintenance, 01/26/18 16:34:30 EDT, Aerosol Start Date: 01/26/18 Status: Ordered warfarin 1 mg oral tablet 2 tablet = 2 mg, By Mouth, Daily, Take as directed per INR, 0 Refills, Maintenance, 09/24/21 11:37:00 EDT, Partial fill upon patient request if the prescription is for a schedule II opioid drug. Start Date: 09/24/21 Status: Ordered Problem List Condition Effective Dates Status Health Status Inform ant Situational anxiety(Confirmed) Active Antiphospholipid syndrome(Confirmed) Active Anxiety(Confirmed) Active CHF - Congestive heart failure(Confirmed) Active 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) Active Coronary artery disease(Confirmed) Active Diverticulitis(Confirmed) Active Epigastric pain(Confirmed) Active Tremor of both hands(Confirmed) Active Gastroesophageal reflux disease(Confirmed) Active MIS (generalized anxiety disorder)(Confirmed) Active Hematoma of right lower leg(Confirmed) Active Heterozygous Factor V Leiden mutation(Confirmed) Active Hyperlipidemia(Confirmed) Active HTN (hypertension)(Confirmed) Active Hypothyroidism(Confirmed) Active Respiratory failure with hypoxia(Confirmed) Active Hypoxia(Confirmed) Active Insomnia(Confirmed) Active LLQ pain(Confirmed) Active Mitral valve prolapse(Confirmed) Active Muscle ache(Confirmed) Active Obstructive sleep apnea lauryn cole with BiPAP(Confirmed) Active Occipital headache(Confirmed) Active Optic neuritis(Confirmed) 1 Active Osteoporosis(Confirmed) Active Bilateral lower extremity pain(Confirmed) Active Platelet function defect(Confirmed) Active Radiation pneumonitis(Confirmed) Active Superficial thrombophlebitis(Confirmed) 2 Active SVT (supraventricular tachycardia)(Confirmed) Active VTE (venous thromboembolism)(Confirmed) Active 1left eye 2lower extrem Diagnosis Diagnosis Type Effective Dates Health Status Clini radha Service Informant COVID Discharge Diagnosis 03/08/22 Social History Social History Type Response Smoking Status Never smoker; Tobacc o user in household: No entered on: 04/05/17 Sex Care Team Personnel Name: Caitlyn Bowie MD Address: [address] [place] [address]
--- OUTSIDE RECORDS SUMMARY | 2023-10-14 16:27 | XMS_ITS | Continuity of Care Document ---
Author Organization [facility] ter Address [address] [place] [id number]- Care Team Providers Care Manager Outreach Name Role Phone Azeb STARK, Caitlyn Thompson Primary Care Physician [phone] Encounter [facility] [place] Date(s): 05/16/22 - 05/17/[address] [address]- Discharge Disposition: A-D/C Home Attending Physician: Maureen Rawls MD Admitting Physician: Rosendo Goldberg MD Referring Physician: Not on Staff, Referring MD Allergies, Adverse Reactions, Alerts Substance Reaction Severity Status ciprofloxacin Active gentamicin Active erythromycin Active penicillin 1 Active vancomycin Active busPIRone Feeling of throat ti ghtness Headache Dizziness Active ipratropium Active morphine Active barium sulfate Active sulfa drugs Active iodinated radiocontrast dyes Active Voltaren Active Zithromax Active Flagyl Active Novocain Active Biaxin Active Gastrografin Active Levaquin Avocado Active Avelox Active Bee Stings Active Contrast Dye Active Mold Active Shrimp Active Avocado Active 1Allergy testing doen 09/26 was [...] 02/28/16 Given pneumococcal 13-valent vaccine 04/21/14 Given Not Given Vaccine Date Status Refusal Reason influenza virus vaccine, inactivated 04/14/22 Not Given Patient Refuses Medications Advair HFA 230 mcg / 21 mcg 2 puffs, Inhalation, 2 times a day Start Date: 09/06/19 Status: Ordered albuterol 0.083% inhalation solution 3 mL = 2.5 mg, Inhalation, Every 6 hours, PRN for wheezing, 0 Refills, Maintenance, 01/26/18 16:35:05 EDT, Solution Start Date: 01/26/18 Status: Ordered B-Complex SR 1 tablet, By Mouth, Daily, 0 Refills, Maintenance, 03/22/22 10:25:00 EDT, ; Start Date: 03/22/22 Status: Ordered dextromethorphan-guaifenesin 10 mg-100 mg/5 mL oral liquid 10 mL, By Mouth, Every 4 hours, PRN Cough, # 120 mL, 0 Refills, Acute 05/29/22 23:00:00 EST, 05/17/22 11:09:00 EST, Syrup, [facility], Partial fill upon patient request if the prescription is for a schedule II opioid drug., 10 mL By Mout... Start Date: 05/17/22 Stop Date: 05/29/22 Status: Ordered diazepam 5 mg oral tablet 1/2-1 tablet, By Mouth, 2 times a day, PRN, Maintenance, anxiety & sleep, 05/16/22 11:25:00 EST, ; Start Date: 05/16/22 Status: Ordered docusate sodium 100 mg oral capsule 100 mg, 1, capsule, By Mouth, 2 times a day, Refills 0, Maintenance, 07/03/21 12:28:00 EST, ; Start Date: 07/03/21 Status: Ordered elderberry oral liquid 15 mL, By Mouth, Daily, 0 Refills, Maintenance, 03/22/22 10:25:00 EDT, ; Start Date: 03/22/22 Status: Ordered EPINEPHrine 0.3 mg injectable solution = 0.3 mg, Intramuscular, Once, PRN Anaphylactic Reaction Start Date: 04/21/21 Status: Ordered ferrous gluconate 324 mg oral tablet 1 tablet = 324 mg, By Mouth, Daily, WITH BREAKFAST Start Date: 04/22/22 Status: Ordered furosemide 20 mg oral tablet 20 mg, 1, tablet, By Mouth, Daily, Refills 0, Maintenance, 04/13/22 20:02:00 EDT, ; Start Date: 04/13/22 Status: Ordered furosemide 20 mg oral tablet 20 mg, 1, tablet, By Mouth, Daily, PRN, Maintenance, leg swelling, 05/16/22 11:28:00 EST Start Date: 05/16/22 Status: Ordered levothyroxine 25 mcg (0.025 mg) oral capsule 1 capsule = 25 mcg, By Mouth, Daily, Monday through Monday, Maintenance, 05/16/22 11:23:00 EST, Capsule, ; Start Date: 05/16/22 Status: Ordered levothyroxine 50 mcg (0.05 mg) oral capsule 1 capsule = 50 mcg, By Mouth, Daily, Monday & Monday's, Maintenance, 05/16/22 11:23:00 EST, ; Start Date: 05/16/22 Status: Ordered meclizine 25 mg oral tablet [...] capsule = 40 mg, By Mouth, Daily, PRN as needed, Maintenance, 05/16/22 11:22:00 EST, EC Capsule, ; Start Date: 05/16/22 Status: Ordered predniSONE 10 mg oral tablet See Instructions, 05/14/22 30 mg by mouth for 3 days 05/17/22 20 mg daily for 3 days 05/20/22 10 mg daily for 3 days 05/23/22 5 mg every day, Maintenance, 05/16/22 11:30:00 EST, Partial fill upon patient request if the prescription is for a sche... Start Date: 05/16/22 Status: Ordered predniSONE 5 mg oral tablet 1 tablet = 5 mg, By Mouth, Daily, START 05/23/22 Start Date: 07/03/21 Status: Ordered rosuvastatin 10 mg oral tablet 1 tablet = 10 mg, By Mouth, Every Monday, Monday and Monday Start Date: 04/21/21 Status: Ordered Senna 8.6 mg oral tablet 17.2 mg, 2, tablet, By Mouth, Daily at bedtime, PRN, Refills 0, Maintenance, as needed for constipation, 01/24/22 11:56:00 EDT, ; Start Date: 01/24/22 Status: Ordered Singulair 10 mg oral tablet 10 mg, 1, tablet, By Mouth, Daily in PM, Dr. Kelly, Refills 0, Maintenance, 08/24/17 13:50:25 EST Start Date: 08/24/17 Status: Ordered Toprol XL 25 mg oral tablet, extended release 25 mg, 1, tablet, By Mouth, 2 times a day, Refills 0, Maintenance, 09/24/21 11:35:00 EDT, ; Start Date: 09/24/21 Status: Ordered Toprol XL 25 mg oral tablet, extended release 25 mg, XL Tablet, By Mouth, 05/17/22 9:00:00 EST Start Date: 05/17/22 Stop Date: 05/17/22 Status: Completed trazodone 50 mg oral tablet 2 tablet = 100 mg, By Mouth, Daily at bedtime, Dr. Kelly, 0 Refills, Maintenance, 02/14/15 9:19:23 EDT, Tablet Start Date: 02/14/15 Status: Ordered Ventolin HFA 108 mcg/inh inhalation aerosol with adapter 2 puffs, Inhalation, Every 6 hours, PRN Wheezing/Shortness of Breath, 0 Refills, Maintenance, 01/26/18 16:34:30 EDT, Aerosol Start Date: 01/26/18 Status: Ordered warfarin 1 mg oral tablet 2 tablet = 2 mg, By Mouth, Daily, (Cinda want's to test her blood today, changes with INR), 0 Refills, Maintenance, 09/24/21 11:37:00 EDT, ; Start Date: 09/24/21 Status: Ordered Xyzal 5 mg oral tablet 1 tablet = 5 mg, By Mouth, Daily in PM, allergies, # 30 tablet, 0 Refills, Maintenance, 04/22/22 15:12:00 EDT, Tablet, [facility], Partial fill upon patient request if the prescription is for a schedule II opioid drug., 1 tablet By Mouth... Start Date: 04/22/22 Status: Ordered Problem List Condition Confirmation Course Effective Dates Status H ealth Status Informant Situational anxiety Confirmed Active Antiphospholipid syndrome Confirmed Active Anxiety Confirmed Active CHF - Congestive heart failure Confirmed Active 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 Confirmed Active Coronary artery disease Confirmed Active Diverticulitis Confirmed Active Epigastric pain Confirmed Active Tremor of both hands Confirmed Active Gastroesophageal reflux disease Confirmed Active MIS (generalized anxiety disorder) Confirmed Active Hematoma of right lower leg Confirmed Active Heterozygous Factor V Leiden mutation Confirmed Active Hyperlipidemia Confirmed Active HTN (hypertension) Confirmed Active Hypothyroidism Confirmed Active Respiratory failure with hypoxia Confirmed Active Hypoxia Confirmed Active Insomnia Confirmed Active LLQ pain Confirmed Active Mitral valve prolapse Confirmed Active Muscle ache Confirmed Active Obstructive sleep apnea treated with BiPAP Confirmed Active Occipital headache Confirmed Active Optic neuritis 1 Confirmed Active Osteoporosis Confirmed Active Bilateral lower extremity pain Confirmed Active Platelet function defect Confirmed Active Radiation pneumonitis Confirmed Active Superficial thrombophlebitis 2 Confirmed Active SVT (supraventricular tachycardia) Confirmed Active VTE (venous thromboembolism) Confirmed Active 1left eye 2lower extrem Results Orders for Microbiology Reports Name Date Sputum Culture w/ Gram Smear 05/16/22 Blood Culture 05/16/22 Blood Culture #2 05/16/22 Microbiology Reports TEST:Blood Culture, Second Order STATUS:Unauthenticated BODY SITE: SOURCE:Blood COLLECTED DATE/TIME:05/16/22 3:28 AM Blood Culture, Second Order SPECIMEN DESCRIPTION : BLOOD NO SITE SPECIAL REQUESTS : NONE CULTURE : NO GROWTH AFTER 24 HOURS REPORT STATUS : PRELIMINARY REPORT TEST:Sputum Culture STATUS:Unauthenticated BODY SITE: SOURCE:EXPECT COLLECTED DATE/TIME:05/16/22 3:27 AM Sputum Culture SPECIMEN DESCRIPTION : EXPECTORATED SPUTUM SPECIAL REQUESTS : NONE GRAM STAIN : 1+ POLYMORPHONUCLEAR LEUKOCYTES 1+ SQ.EPITHELIAL CELLS 1+ GRAM POSITIVE COCCI CULTURE : 2+ HAEMOPHILUS PARAINFLUENZAE . THIS HAEMOPHILUS PARAINFLUENZAE DOES NOT PRODUCE BETA-LACTAMASE AND SHOULD BE CONSIDERED SENSITIVE TO AMPICILLIN This isolate was identified using Maldi-TOF system 4+ NORMAL DION REPORT STATUS : PRELIMINARY REPORT TEST:Blood Culture STATUS:Unauthenticated BODY SITE: SOURCE:Blood COLLECTED DATE/TIME:05/16/22 2:17 AM Blood Culture SPECIMEN DESCRIPTION : BLOOD RAC SPECIAL REQUESTS : NONE CULTURE : NO GROWTH AFTER 24 HOURS REPORT STATUS : PRELIMINARY REPORT Radiology Reports * Exam Date Time Procedure Performing Provider Status 05/16/22 1:00 AM Chest 2 Views Frontal and Lat Vega , Yang; Auth (Verified) Notes: (Chest 2 Views Frontal and Lat) Reason For Exam: Chest Pain;Other: RESULT: Chest 2 Views Frontal and Lat Chest 2 Views Frontal and Lat Hx of Present Illness: pt states she thinks she has pneumonia. Pt was seen at [facility] and had chest xray, ekg and VQ scan; Reason: Other:; Chest Pain; Clinical Question(s): Other: COMPARISON: 05/10/2022 FINDINGS: LINES AND TUBES: None. LUNGS AND PLEURA: There is persistent left basilar airspace opacity and volume loss which is most consistent with a small effusion and adjacent atelectasis versus pneumonia involving the left lower lobe. This is not significantly changed. The upper left lung is clear. The right lung is clear. No pneumothorax. HEART, MEDIASTINUM AND PAULIE: Heart is at the upper limits of normal for size. Normal mediastinal and hilar contour. BONES AND SOFT TISSUES: No acute abnormality. IMPRESSION: Persistent left basilar opacity and volume loss consistent with small effusion with adjacent compressive atelectasis versus pneumonia involving the left lower lobe. Overall no change from 05/10/2022. WSN: [id number] Ordering Physician: Mikel Martel Dictated By: Andre Damon MD Dictated Date/Time: 05/16/22 8:24 am Reviewed By: Andre Damon MD Signed By: Andre Damon MD Signed Date/Time: 05/16/22 8:24 am Transcribed By: MART Transcribed Date/Time: 05/16/22 8:23 am Vital Signs Most recent to oldest [Reference Range]: 1 2 3 Oxygen Saturation [94-100 %] 97 % (05/17/22 11:03 AM) 99 % (05/17/22 8:57 AM) 98 % (05/17/22 5:12 AM) Pulse Rate [55-90 bpm] 80 bpm (05/17/22 11:03 AM) 81 bpm (05/17/22 8:57 AM) 73 bpm (05/17/22 5:12 AM) Blood Pressure [90-138/55-84 mm Hg] 129/60mm Hg (05/17/22 11:03 AM) 136/73mm Hg (05/17/22 8:57 AM) 126/62mm Hg (05/17/22 5:12 AM) Respiratory Rate [16-30 br/min] 17 br/min (05/17/22 11:03 AM) 18 br/min (05/17/22 8:57 AM) 18 br/min (05/17/22 5:12 AM) Temperature [96.8-100.4 DegF] 98.5 DegF (05/17/22 11:03 AM) 98.5 DegF (05/17/22 8:57 AM) 98.4 DegF (05/17/22 5:12 AM) Mode of Delivery (Oxygen) Room air (05/17/22 11:03 AM) Room air (05/17/22 8:57 AM) Room air (05/17/22 5:12 AM) Blood pressure sites Arm, right (05/17/22 11:03 AM) Arm, right (05/17/22 8:57 AM) Arm, left (05/17/22 5:12 AM) Temperature Route Oral (05/17/22 11:03 AM) Oral (05/17/22 8:57 AM) Oral (05/17/22 5:12 AM) Social History Social History Type Response Smoking Status Never smoker; Tobacc o user in household: No entered on: 04/05/17 Sex Female Admission evaluation note * Billy STARK, Aicha Blackwell: PERFORM, MODIFY, MODIFY Event Display: Admission Note Authored Date: [id number] Patient: ??CINDA WATSON ? Age:??77 Years?Sex:??Female?:??1945?? Chief Complaint/Reason for Consultation was seen at [facility] in the beginning of the month for same complaint. reports continued cough History of Present Illness ?? 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 She was treated at [facility] for??COPD exacerbation??and had completed??doxycycline antibiotic??and was started??on prednisone therapy??with tapering.?? Her cough was??productive of yellow sputum??and mucus.?? She had a temperature of 101.5 ??F.?? She denied having any??nausea or vomiting.?? The patient is being admitted to the hospital for further management treatment. Review of Systems Constitutional: No fever HEENT: No visual loss, blurred vision, double vision or yellow sclera. No runny nose or sore throat. Cardiovascular: No chest pain, palpitations or pedal edema. Respiratory: No shortness of breath, cough or sputum production. Gastrointestinal: No nausea, vomiting or diarrhea. No abdominal pain.?? Neurologic: No headache, dizziness, unilateral weakness, numbness or tingling in the extremities. Objective ? Vital Signs?? Temperature: 97.5 DegF (05/16/22 09:02:00) Temperature Route: Oral (05/16/22 09:02:00) Pulse Rate: 84 bpm (05/16/22 14:08:00) Respiratory Rate: 16 br/min (05/16/22 14:08:00) Systolic Blood Pressure: 120 mm Hg (05/16/22 14:08:00) Diastolic Blood Pressure: 56 mm Hg (05/16/22 14:08:00) Blood pressure sites: Arm, left (05/16/22 14:08:00) Mean Arterial Pressure: 77 mm Hg (05/16/22 09:02:00) Pulse Pressure: 64 mm Hg (05/16/22 14:08:00) Oxygen Saturation: 96 % (05/16/22 14:08:00) Mode of Delivery (Oxygen): Room air (05/16/22 14:08:00) Early Warning Score: 2 (05/16/22 14:38:58) ? Intake/Output? 05/16 03:30 05/16 07:00 05/15 07:00 05/14 07:00 05/13 07:00 ?? 05/16 17:34 05/16 17:34 05/16 06:59 05/15 06:59 05/14 06:59 Intake ?150 ?0 ?150 ?0 ?0 Output ?0 ?0 ?0 ?0 ?0 Net Total ?150 ?0 ?150 ?0 ?0 ? Precautions No Precautions documented.? Mobility & Ambulation Level Mobility & Ambulation Level?? No qualifying data available. ? Physical Exam General: Alert Mental Status: Oriented to person, place and time. Head: Normocephalic. Neck: Supple Respiratory: Decreased breath sounds at bases. ??Wheezing.? Cardiovascular: Heart sounds normal. No thrills. Regular rate and rhythm, no murmurs, rubs or gallops. Gastrointestinal: Abdomen soft, non-tender, non-distended. Normal bowel sounds.?? Neurologic: Cranial nerves II-XII grossly intact. No focal neurological deficits. Sensation intact bilaterally. Skin: No rashes or lesions.?? Musculoskeletal: No cyanosis Assessment/Plan Diagnoses COPD exacerbation ??(J44.1) ?? 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 She was treated at [facility] for COPD exacerbation and had completed doxycycline antibiotic and was started on prednisone therapy with tapering. Her cough was productive of yellow sputum and mucus. She had a temperature of 101.5 ??F. She denied having any nausea or vo miting. The patient is being admitted to the hospital for further management treatment. ? 1.?COPD exacerbation: Patient has a history of COPD Patient presented to [facility] with precipitated the patient Patient is??receiving??DuoNebs Patient is on tapering dose of??steroids??with prednisone??tapering doses WBC is normal No leukocytosis??with left shift ? 2.?Hypertension: Blood pressures are controlled??with occasional??high readings??presenting with chest ? 3.?History of PE/DVT: Continue with??Coumadin INR??1.6 ? compliance. I councelled her about medication compliance Target INR should be between 2 and 3 Continue Coumadin We will monitor??INR??and adjust Coumadin dose ? 4.?DVT prophylaxis:??Patient is on Coumadin Diet:??Cardiac diet CODE STATUS:??Full code ? I have discussed the above plan with the patient at bedside who is in agreement. ? Discharge Planning:? Histories Allergies Allergies ?(Active and Proposed Allergies Only) busPIRone? (Severity: Unknown severity, Onset: Unknown) ?Reactions: Dizziness, Headache, Feeling of throat tightness Avocado? (Severity: Unknown severity, Onset: Unknown) ipratropium? (Severity: Unknown severity, Onset: Unknown) penicillin? (Severity: Unknown severity, Onset: Unknown) ?Comments: Allergy testing doen 09/26 was negative so unlikely she is allergic to this Shrimp? (Severity: Unknown severity, Onset: Unknown) Flagyl? (Severity: Unknown severity, Onset: Unknown) Gastrografin? (Severity: Unknown severity, Onset: Unknown) barium sulfate? (Severity: Unknown severity, Onset: Unknown) ciprofloxacin? (Severity: Unknown severity, Onset: Unknown) iodinated radiocontrast dyes? (Severity: Unknown severity, Onset: Unknown) Novocain? (Severity: Unknown severity, Onset: Unknown) morphine? (Severity: Unknown severity, Onset: Unknown) Levaquin? (Severity: Unknown severity, Onset: Unknown) ?Reactions: Avocado Zithromax? (Severity: Unknown severity, Onset: Unknown) Mold? (Severity: Unknown severity, Onset: Unknown) erythromycin? (Severity: Unknown severity, Onset: Unknown) Avelox? (Severity: Unknown severity, Onset: Unknown) Biaxin? (Severity: Unknown severity, Onset: Unknown) gentamicin? (Severity: Unknown severity, Onset: Unknown) vancomycin? (Severity: Unknown severity, Onset: Unknown) Bee Stings? (Severity: Unknown severity, Onset: Unknown) Contrast Dye? (Severity: Unknown severity, Onset: Unknown) Voltaren? (Severity: Unknown severity, Onset: Unknown) sulfa drugs? (Severity: Unknown severity, Onset: Unknown) ? Past Medical History/Problem List Active Problems??(32) Antiphospholipid syndrome Anxiety Bilateral lower extremity pain CHF - Congestive heart failure 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 Coronary artery disease Diverticulitis Epigastric pain MIS (generalized anxiety disorder) Gastroesophageal reflux disease Hematoma of right lower leg Heterozygous Factor V Leiden mutation HTN (hypertension) Hyperlipidemia Hypothyroidism Hypoxia Insomnia LLQ pain Mitral valve prolapse Muscle ache Obstructive sleep apnea treated with BiPAP Occipital headache Optic neuritis Osteoporosis Platelet function defect Radiation pneumonitis Respiratory failure with hypoxia Situational anxiety Superficial thrombophlebitis SVT (supraventricular tachycardia) Tremor of both hands VTE (venous thromboembolism) ? Past Surgical History Bronchoscopy, rigid or flexible, with or without fluoroscopic guidance; diagnostic, with or withoutcell washing (separate procedure): 2008 Thoracoscopy, surgical; with lobectomy, total or segmental - LLL: 2007 Total abdominal hysterectomy (corpus and cervix), with or without removal of tube(s), with or without removal of ovary(s);: 1976 Tonsillectomy and adenoidectomy; younger than age 12 ? Social History Alcohol Details:??Use: Never. 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 Exercise Details:??Regular exercise: No. Home/Environment Details:??Living situation: Home/Independent. ??Lives with: Alone. ??Other: Is , has adult son and daughter.. Nutrition/Health Details:??Diet: Regular. Sexual Details:??Sexually involved in last 6 months: No. ??Sexual orientation: Heterosexual. ??Gender identity: Female. ??Preferred pronoun: She/her. Substance Abuse Details:??Use: Never. Tobacco Details:??Never smoker, Tobacco user in household: No. ? Psychosocial History ? Family History Mother (): AAA - Abdominal aortic aneurysm; Cancer of lung; Cerebral arterial aneurysm; Hypothyroid Father (): Cirrhosis of liver Mat. Grandmother: Cancer of lung Mat. Grandfather: Cancer of lung Sister: Leukemia Other (Uncle, ): Leukemia ? Medications Home Medications Albuterol (Ventolin HFA 108 mcg/inh inhalation aerosol with adapter)?2?puff(s)?Inhalation?Every 6 hours?as needed?Wheezing/Shortness of Breath Albuterol (albuterol 0.083% inhalation solution)?3?Milliliter?2.5?Milligram?Inhalation?Every 6 hours?as needed?for wheezing Diazepam (diazepam 5 mg oral tablet)?1/2-1 tablet?By Mouth?2 times a day?as needed?anxiety & sleep Docusate (docusate sodium 100 mg oral capsule)?100?Milligram?1?capsule?By Mouth?2times a day elderberry (elderberry oral liquid)?15?Milliliter?By Mouth?Daily EPINEPHrine (EPINEPHrine 0.3 mg injectable solution)?0.3?Milligram?Intramuscular?Once?as needed?Anaphylactic Reaction Ferrous Gluconate (ferrous gluconate 324 mg oral tablet)?1?tab(s)?324?Milligram?By Mouth?Daily?WITH BREAKFAST Fluticasone-Salmeterol (Advair HFA 230 mcg / 21 mcg)?2?puff(s)?Inhalation?2 times a day Furosemide (furosemide 20 mg oral tablet)?20?Milligram?1?tablet?By Mouth?Daily Furosemide (furosemide 20 mg oral tablet)?20?Milligram?1?tablet?By Mouth?Daily?as needed?leg swelling Guaifenesin/Codeine (codeine-guaifenesin 10 mg-100 mg/5 mL oral syrup)?10?Milliliter?By Mouth?Every 6 hours?as needed?for cough levocetirizine (Xyzal 5 mg oral tablet)?1?tab(s)?5?Milligram?By Mouth?Daily in PM?allergies Levothyroxine (levothyroxine 25 mcg (0.025 mg) oral capsule)?1?capsule?25?Microgram?By Mouth?Daily?Monday through Monday Levothyroxine (levothyroxine 50 mcg (0.05 mg) oral capsule)?1?capsule?50?Microgram?By Mouth?Daily?Monday & Monday's Meclizine (meclizine 25 mg oral tablet)?See Instructions?as needed?as needed for dizziness?can take ??extra 25mg for up to four per day Metoprolol (Toprol XL 25 mg oral tablet, extended release)?25?Milligram?1?tablet?By Mouth?2 times a day Montelukast (Singulair 10 mg oral tablet)?10?Milligram?1?tablet?By Mouth?Daily inPM?Dr. Kelly Multivitamin (B-Complex SR)?1?tab(s)?By Mouth?Daily Omeprazole (omeprazole 40 mg oral enteric coated capsule)?1?capsule?40?Milligram?By Mouth?Daily?as needed?as needed PredniSONE (predniSONE 5 mg oral tablet)?1?tab(s)?5?Milligram?By Mouth?Daily?START 05/23/22 PredniSONE (predniSONE 10 mg oral tablet)?See Instructions?05/14/2230 mg by mouth for 3 days05/1702/2220 mg daily for 3 days0 mg daily for 3 days05/23/22 5 mg every day Rosuvastatin (rosuvastatin 10 mg oral tablet)?1?tab(s)?10?Milligram?By Mouth?Every Monday, Monday and Monday Senna (Senna 8.6 mg oral tablet)?17.2?Milligram?2?tab(s)?By Mouth?Daily at bedtime?as needed?as needed for constipation Trazodone (trazodone 50 mg oral tablet)?2?tab(s)?100?Milligram?By Mouth?Daily at bedtime?Dr. Kelly Warfarin (warfarin 1 mg oral tablet)?2?tab(s)?2?Milligram?By Mouth?Daily?(Cinda want's to test her blood today, changes with INR) ? Inpatient Medications Medications (27) Active SCHEDULED: (17) Cetirizine 5 mg / 5mL Syrup (UD) (Cetirizine Liquid) ??10 mg 10 mL, By Mouth, Daily Docusate Sodium 100 mg Capsule (docusate sodium 100 mg oral capsule) ??100 mg 1 capsule, By Mouth, 2 times a day Ferrous Sulfate 325 mg EC Tablet (ferrous sulfate 325 mg oral enteric coated tablet) ??325 mg, By Mouth, Daily Furosemide 20 mg Tablet (furosemide 20 mg oral tablet) ??20 mg, By Mouth, Daily Levothyroxine 25 mcg Tablet (levothyroxine 0.025 mg oral tablet) ??25 mcg, By Mouth, Every Monday, Monday and Monday Levothyroxine 25 mcg Tablet (levothyroxine 0.025 mg oral tablet) ??25 mcg, By Mouth, Every Metoprolol 25 mg XL Tablet (Toprol XL 25 mg oral tablet, extended release) ??25 mg, By Mouth, 2 times a day Montelukast 10 mg Tablet (Singulair 10 mg oral tablet) ??10 mg, By Mouth, Daily Multivitamin Tablet ??1 tablet, By Mouth, Daily NaCl 0.9% Flush 3ml (NaCL 0.9% Flush) ??3 mL, IV Push, Every 8 hours Pantoprazole 40 mg EC Tablet (pantoprazole 40 mg oral delayed release tablet) ??40 mg, By Mouth, Daily PredniSONE 20 mg Tablet (predniSONE 20 mg oral tablet) ??20 mg, By Mouth, Daily in AM PredniSONE 5 mg Tablet (predniSONE 5 mg oral tablet) ??10 mg, By Mouth, Daily PredniSONE 5 mg Tablet (predniSONE 5 mg oral tablet) ??5 mg, By Mouth, Daily in AM Rosuvastatin 5 mg Tablet (rosuvastatin 5 mg oral tablet) ??10 mg, By Mouth, Every Monday, Mondayand Monday Trazodone 50 mg Tablet (traZODone 50 mg oral tablet) ??100 mg, By Mouth, Daily at bedtime Warfarin 2 mg Tablet (Coumadin Tablet) ??2 mg, By Mouth, Daily CONTINUOUS: (0) PRN: (10) Acetaminophen 325 mg Tablet (Acetaminophen Tablet) ??650 mg, By Mouth, Every 4 hours Albuterol 0.083% Inhalation Solution (Albuterol 0.083% inhalation edwin) ??2.5 mg 3 mL, Inhalation, Every 6 hours Albuterol 90mcg/Inhalation Inhaler HFA (albuterol CFC free 90 mcg/inh inhalation aerosol) ??180 mcg2 puffs, Inhalation, Every 4 hours Dextromethorphan-Guaifenesin 20 mg-200 mg/10 mL Liqu UD (Robitussin DM Liquid) ??10 mL, By Mouth, Every 4 hours Diazepam 5 mg Tablet (diazepam 5 mg oral tablet) ??2.5 mg, By Mouth, 2 times a day Meclizine 12.5 mg Tablet (meclizine 12.5 mg oral tablet) ??25 mg, By Mouth, 4 times a day Melatonin 3 mg Tablet (Melatonin Tablet) ??3 mg, By Mouth, Daily at bedtime NaCl 0.9% Flush 3ml (NaCL 0.9% Flush) ??3 mL, IV Push, Every 8 hours Senna 8.6 mg / Docusate 50 mg tablet (Docusate/Senna Tablet) ??1 tablet, By Mouth, 2 times a day Senna Tablet (Senna 8.6 mg oral tablet) ??17.2 mg 2 tablet, By Mouth, Daily at bedtime ? Results Recent Labs BLOOD COUNT & DIFF WBC 9.7 k/mm3 ()?? 05/16/2022 00:29 RBC 4.05 m/mm3 (Low)?? 05/16/2022 00:29 Hgb 12.7 Gm/dL ()?? 05/16/2022 00:29 Hct 39.8 % ()?? 05/16/2022 00:29 MCV 98.3 femtoliters ()?? 05/16/2022 00:29 MCH 31.4 pg ()?? 05/16/2022 00:29 MCHC 31.9 g/dL (Low)?? 05/16/2022 00:29 Platelet Count 209 k/mm3 ()?? 05/16/2022 00:29 RDW-SD 49.3 femtoliters (High)?? 05/16/2022 00:29 MPV 11.2 femtoliters ()?? 05/16/2022 00:29 Nucleated RBC (Automated) 0.0 #/100 WBC'S ()?? 05/16/2022 00:29 Abs. NRBC 0.0 k/mm3 ()?? 05/16/2022 00:29 Abs. Neut 7.0 k/mm3 ()?? 05/16/2022 00:29 Abs. Lymph 1.1 k/mm3 ()?? 05/16/2022 00:29 Abs. [place] 1.5 k/mm3 (High)?? 05/16/2022 00:29 Abs. Eo 0.0 k/mm3 ()?? 05/16/2022 00:29 Abs. Baso 0.1 k/mm3 ()?? 05/16/2022 00:29 Neut % 71.5 % ()?? 05/16/2022 00:29 Lymph % 11.6 % (Low)?? 05/16/2022 00:29 [place] % 14.9 % (High)?? 05/16/2022 00:29 Eos % 0.1 % ()?? 05/16/2022 00:29 Baso % 0.8 % ()?? 05/16/2022 00:29 Imm Gran 1.1 % ()?? 05/16/2022 00:29 Abs. Imm Gran 0.1 k/mm3 ()?? 05/16/2022 00:29 ?? CARDIAC Troponin T Quant <0.01 ng/mL ()?? 05/16/2022 00:29 Nt-Probnp 1291 pg/mL (High)?? 05/16/2022 00:29 ?? CHEM GENERAL Sodium 136 mmol/L ()?? 05/16/2022 00:29 Potassium 3.9 mmol/L ()?? 05/16/2022 00:29 Chloride 99 mmol/L ()?? 05/16/2022 00:29 Bicarbonate Level 27 mmol/L ()?? 05/16/2022 00:29 Anion Gap 10 ()?? 05/16/2022 00:29 Glucose Level 97 mg/dL ()?? 05/16/2022 00:29 BUN 19 mg/dL ()?? 05/16/2022 00:29 Creatinine-Blood 0.8 mg/dL ()?? 05/16/2022 00:29 Estimated GFR Creatinine 75 ML/MIN/1.73 M2 ()?? 05/16/2022 00:29 Calcium 9.7 mg/dL ()?? 05/16/2022 00:29 ?? COAG INR 1.6 (High)?? 05/16/2022 02:03 Protime (PT) 16.3 seconds (High)?? 05/16/2022 02:03 ?? COUMADIN CLINIC RESULTS INR (Coumadin Clinic) 1.6 (Normal)?? 05/16/2022 00:00 ?? HEME OTHER Hold Blue Top SPECIMEN DISCARDED AFTER 4 HOURS. ()?? 05/16/2022 00:29 ?? VIROLOGY COVID-19 POC Result NEGATIVE ()?? 05/15/2022 23:48 ? Note * Maureen Rawls MD: PERFORM Event Display: Discharge/Transfer Note Hospital Authored Date: Patient: ??CINDA WATSON ? Age:??77 Years?Sex:??Female?:??1945?? Patient Information Discharge Location: [facility] Primary Care Physician: Caitlyn Bowie MD Admit Date/Time: 05/16/22 03:30 Discharge Disposition Discharge Disposition: Home: No Services Discharge Diagnosis Chronic cough (R05.3) Antiphospholipid syndrome Anxiety 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 Coronary artery disease Hypothyroidism ?? _ Discharge Medications Albuterol (Ventolin HFA 108 mcg/inh inhalation aerosol with adapter)?2?puff(s)?Inhalation?Every 6 hours?as needed?Wheezing/Shortness of Breath Albuterol (albuterol 0.083% inhalation solution)?3?Milliliter?2.5?Milligram?Inhalation?Every 6 hours?as needed?for wheezing Diazepam (diazepam 5 mg oral tablet)?1/2-1 tablet?By Mouth?2 times a day?as needed?anxiety & sleep Docusate (docusate sodium 100 mg oral capsule)?100?Milligram?1?capsule?By Mouth?2times a day elderberry (elderberry oral liquid)?15?Milliliter?By Mouth?Daily EPINEPHrine (EPINEPHrine 0.3 mg injectable solution)?0.3?Milligram?Intramuscular?Once?as needed?Anaphylactic Reaction Ferrous Gluconate (ferrous gluconate 324 mg oral tablet)?1?tab(s)?324?Milligram?By Mouth?Daily?WITH BREAKFAST Fluticasone-Salmeterol (Advair HFA 230 mcg / 21 mcg)?2?puff(s)?Inhalation?2 times a day Furosemide (furosemide 20 mg oral tablet)?20?Milligram?1?tablet?By Mouth?Daily Furosemide (furosemide 20 mg oral tablet)?20?Milligram?1?tablet?By Mouth?Daily?as needed?leg swelling Guaifenesin/Dextromethorphan (dextromethorphan-guaifenesin 10 mg-100 mg/5 mL oral liquid)?10?Milliliter?By Mouth?Every 4 hours?as needed?Cough levocetirizine (Xyzal 5 mg oral tablet)?1?tab(s)?5?Milligram?By Mouth?Daily in PM?allergies Levothyroxine (levothyroxine 25 mcg (0.025 mg) oral capsule)?1?capsule?25?Microgram?By Mouth?Daily?Monday through Monday Levothyroxine (levothyroxine 50 mcg (0.05 mg) oral capsule)?1?capsule?50?Microgram?By Mouth?Daily?Monday & Monday's Meclizine (meclizine 25 mg oral tablet)?See Instructions?as needed?as needed for dizziness?can take ??extra 25mg for up to four per day Metoprolol (Toprol XL 25 mg oral tablet, extended release)?25?Milligram?1?tablet?By Mouth?2 times a day Montelukast (Singulair 10 mg oral tablet)?10?Milligram?1?tablet?By Mouth?Daily inPM?Dr. Kelly Multivitamin (B-Complex SR)?1?tab(s)?By Mouth?Daily Omeprazole (omeprazole 40 mg oral enteric coated capsule)?1?capsule?40?Milligram?By Mouth?Daily?as needed?as needed PredniSONE (predniSONE 5 mg oral tablet)?1?tab(s)?5?Milligram?By Mouth?Daily?START 05/23/22 PredniSONE (predniSONE 10 mg oral tablet)?See Instructions?05/14/2230 mg by mouth for 3 days02/2220 mg daily for 3 days05/2210 mg daily for 3 days05/23/22 5 mg every day Rosuvastatin (rosuvastatin 10 mg oral tablet)?1?tab(s)?10?Milligram?By Mouth?Every Monday, Monday and Monday Senna (Senna 8.6 mg oral tablet)?17.2?Milligram?2?tab(s)?By Mouth?Daily at bedtime?as needed?as needed for constipation Trazodone (trazodone 50 mg oral tablet)?2?tab(s)?100?Milligram?By Mouth?Daily at bedtime?Dr. Kelly Warfarin (warfarin 1 mg oral tablet)?2?tab(s)?2?Milligram?By Mouth?Daily?(Cinda want's to test her blood today, changes with INR) ? Durable Medical Equipment Current home treatments: Other: PT/SN (04/13/22) On Admit VNA/Hospice/Home Care: [facility] [address] [facility] [id number] [phone] (04/13/22) CPAP/BiPAP Mask Type: Full (01/08/22) CPAP/BiPAP Mask Size: Medium (01/08/22) Ambulatory devices needed: None (05/17/22) ? Medications Started Guaifenesin Medications Discontinued none Doses Changed none Allergies Allergies ?(Active and Proposed Allergies Only) busPIRone? (Severity: Unknown severity, Onset: Unknown) ?Reactions: Dizziness, Headache, Feeling of throat tightness Avocado? (Severity: Unknown severity, Onset: Unknown) ipratropium? (Severity: Unknown severity, Onset: Unknown) penicillin? (Severity: Unknown severity, Onset: Unknown) ?Comments: Allergy testing greta 3/20 was negative so unlikely she is allergic to this Shrimp? (Severity: Unknown severity, Onset: Unknown) Flagyl? (Severity: Unknown severity, Onset: Unknown) Gastrografin? (Severity: Unknown severity, Onset: Unknown) barium sulfate? (Severity: Unknown severity, Onset: Unknown) ciprofloxacin? (Severity: Unknown severity, Onset: Unknown) iodinated radiocontrast dyes? (Severity: Unknown severity, Onset: Unknown) Novocain? (Severity: Unknown severity, Onset: Unknown) morphine? (Severity: Unknown severity, Onset: Unknown) Levaquin? (Severity: Unknown severity, Onset: Unknown) ?Reactions: Avocado Zithromax? (Severity: Unknown severity, Onset: Unknown) Mold? (Severity: Unknown severity, Onset: Unknown) erythromycin? (Severity: Unknown severity, Onset: Unknown) Avelox? (Severity: Unknown severity, Onset: Unknown) Biaxin? (Severity: Unknown severity, Onset: Unknown) gentamicin? (Severity: Unknown severity, Onset: Unknown) vancomycin? (Severity: Unknown severity, Onset: Unknown) Bee Stings? (Severity: Unknown severity, Onset: Unknown) Contrast Dye? (Severity: Unknown severity, Onset: Unknown) Voltaren? (Severity: Unknown severity, Onset: Unknown) sulfa drugs? (Severity: Unknown severity, Onset: Unknown) ? Future Appointments 2021 11:00 AM EST ?? With: Azeb STARK, Caitlyn Thompson Where: [facility] [address] [place] [id number]- Monday 12:45 PM EST ?? With: Where: [facility] [address] [place] [address]- Monday 1:00 PM EST ?? With: Where: [facility] [address], [address] [place] [address]- Objective Assessment and Plan Assessment:? 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 Patient has seen pulmonologistin the past many times. She was treated at [facility] for COPD exacerbation and had completed doxycycline antibiotic and was started on prednisone therapy with tapering. Her cough was productive of yellow sputum and mucus. She had a temperature of 101.5 ??F at home. She denied having any nauseaor vomiting.? 1. COPD 2: ch cough and hx of intermittent hemoptysis 3: lung cancer s/p YANIQUE resection and chemo/radiation pt admitted with worsening cough and SOB. However w/u has been -ve so far for any acute viral/bacterial infection. No leukocytosis, afebrile, CXR same as was on 05/11. on RA with good O2 sats, however extremely anxious and has multiple questions and symptoms complex. has been on tapering dose of steroids by her pulm. recently completed Abx course in outpt setting. discussed in great detail with pt that with current w/u there is no reason to suspect PNA in the absence of fever, white count or hypoxia or worsening cough. 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 cough syrup ordered. follow up with pulm after discharge ?Hypertension: ??no cp at present, BP stable.? History of PE/DVT: APL syndrome factor V Leiden: ??INR 1.6 ??? compliance. ??I counselled her about medication compliance ??Target INR should be between 2 and 3 however per pt her oncologist told her to maintain it between 1.5-2. ??Continue Coumadin ??monitor INR as directed by her primary physician. ? Vital Signs?? Temperature: 98.5 DegF (05/17/22 11:03:00) Temperature Route: Oral (05/17/22 11:03:00) Pulse Rate: 80 bpm (05/17/22 11:03:00) Respiratory Rate: 17 br/min (05/17/22 11:03:00) Systolic Blood Pressure: 129 mm Hg (05/17/22 11:03:00) Diastolic Blood Pressure: 60 mm Hg (05/17/22 11:03:00) Blood pressure sites: Arm, right (05/17/22 11:03:00) Mean Arterial Pressure: 77 mm Hg (05/17/22 00:10:00) Pulse Pressure: 69 mm Hg (05/17/22 11:03:00) Oxygen Saturation: 97 % (05/17/22 11:03:00) Mode of Delivery (Oxygen): Room air (05/17/22 11:03:00) Early Warning Score: 0 (05/17/22 12:06:20) ? . Physical Exam A&ox 3 lungs CTAB b/l, no rales or rhonchi, on RA with sats 98-100 percent abdomen soft non tender heart : rrr Pending Results Blood Culture ordered on 05/16/2022 Blood Culture #2 ordered on 05/16/2022 INR ordered on 05/16/2022 Sputum Culture w/ Gram Smear ordered on 05/16/2022 Patient Education Titles Chronic Cough with??Uncertain Cause (Adult)?? Follow-Up Appointments Added Follow Up ?Time Frame ?Comments Caitlyn Bowie Post Discharge Care Discharge ?05/17/22 12:38:00 EST Discharge Prescriptions ?ePrescribed, ??05/17/22 12:39:00 EST Home Health Face to Face ^HomeHealthFTF Results Discharge Labs BLOOD COUNT & DIFF WBC 6.7 k/mm3 ()?? 05/17/2022 08:28 RBC 3.80 m/mm3 (Low)?? 05/17/2022 08:28 Hgb 11.8 Gm/dL ()?? 05/17/2022 08:28 Hct 37.5 % ()?? 05/17/2022 08:28 MCV 98.7 femtoliters ()?? 05/17/2022 08:28 MCH 31.1 pg ()?? 05/17/2022 08:28 MCHC 31.5 g/dL (Low)?? 05/17/2022 08:28 Platelet Count 172 k/mm3 ()?? 05/17/2022 08:28 RDW-SD 50.0 femtoliters (High)?? 05/17/2022 08:28 MPV 11.6 femtoliters ()?? 05/17/2022 08:28 Nucleated RBC (Automated) 0.0 #/100 WBC'S ()?? 05/17/2022 08:28 Abs. NRBC 0.0 k/mm3 ()?? 05/17/2022 08:28 Abs. Neut 4.6 k/mm3 ()?? 05/17/2022 08:28 Abs. Lymph 0.8 k/mm3 ()?? 05/17/2022 08:28 Abs. [place] 1.2 k/mm3 (High)?? 05/17/2022 08:28 Abs. Eo 0.0 k/mm3 ()?? 05/17/2022 08:28 Abs. Baso 0.0 k/mm3 ()?? 05/17/2022 08:28 Neut % 68.9 % ()?? 05/17/2022 08:28 Lymph % 11.8 % (Low)?? 05/17/2022 08:28 [place] % 18.1 % (High)?? 05/17/2022 08:28 Eos % 0.0 % ()?? 05/17/2022 08:28 Baso % 0.3 % ()?? 05/17/2022 08:28 Imm Gran 0.9 % ()?? 05/17/2022 08:28 Abs. Imm Gran 0.1 k/mm3 ()?? 05/17/2022 08:28 ?? CARDIAC Troponin T Quant <0.01 ng/mL ()?? 05/16/2022 00:29 Nt-Probnp 1291 pg/mL (High)?? 05/16/2022 00:29 ?? CHEM GENERAL Sodium 136 mmol/L ()?? 05/17/2022 08:28 Potassium 4.1 mmol/L ()?? 05/17/2022 08:28 Chloride 98 mmol/L ()?? 05/17/2022 08:28 Bicarbonate Level 29 mmol/L ()?? 05/17/2022 08:28 Anion Gap 9 ()?? 05/17/2022 08:28 Glucose Level 97 mg/dL ()?? 05/16/2022 00:29 BUN 14 mg/dL ()?? 05/17/2022 08:28 Creatinine-Blood 0.7 mg/dL ()?? 05/17/2022 08:28 Estimated GFR Creatinine 82 ML/MIN/1.73 M2 ()?? 05/17/2022 08:28 Calcium 9.7 mg/dL ()?? 05/16/2022 00:29 ?? COAG INR 1.6 (High)?? 05/16/2022 02:03 Protime (PT) 16.3 seconds (High)?? 05/16/2022 02:03 ?? HEME OTHER Hold Blue Top SPECIMEN DISCARDED AFTER 4 HOURS. ()?? 05/16/2022 00:29 ? VIROLOGY COVID-19 PCR Specimen Source NASAL ()?? 05/16/2022 09:15 COVID-19 PCR Result NEGATIVE ()?? 05/16/2022 09:15 COVID-19 POC Result NEGATIVE ()?? 05/15/2022 23:48 ? Imaging(s) ?Chest 2 Views Frontal and Lat ?? 05/16/2022 01:00??by Andre Damon MD ?Persistent left basilar opacity and volume loss consistent with small effusion with adjacent compressive atelectasis versus pneumonia involving the left lower lobe. Overall no change from05/10/2022. ? 40??minutes spent on discharge * Maureen Rawls MD: PERFORM, SIGN, VERIFY Event Display: Patient Education Handout Authored Date: * Maureen Rawls MD: PERFORM Event Display: Patient Education Leaflets Authored Date: [id number] Chronic Cough with??Uncertain Cause (Adult) ?? [id number] Chronic Cough with??Uncertain Cause (Adult) Everyone has had a cough as part of the common cold, flu, or bronchitis. This kind of cough occurs along with an achy feeling, low-grade fever, nasal and sinus congestion, and a scratchy or sore throat. This usually gets better in 2 to 3 weeks. A cough that lasts longer than 3 weeks may be due to other causes. Your healthcare provider may refer to this as a chronic cough. If your cough does not improve over the next 2 weeks, further testing may be needed. Follow up withyour healthcare provider as advised. Cough suppressants may be recommended. Based on your exam today, the exact cause of your cough is not certain. Below are some common causes for persistent cough. Smoker's cough Smoker???s cough doesn???t go away. If you continue to smoke, it only gets worse. The cough is fromirritation in the air passages. Talk to your healthcare provider about quitting. Medicines or nicotine-replacement products, like gum or the patch, may make quitting easier. ?? Postnasal drip A cough that is worse at night may be due to postnasal drip. Excess mucus in the nose drains from the back of your nose to your throat. This triggers the cough reflex. Postnasal drip may be due to a sinus infection or allergy. Common allergens include dust, tobacco smoke (both inhaled and secondhand smoke), environmental pollutants, pollen, mold, pets, cleaning agents, room deodorizers, and chemical fumes. Ptus-yls-pbvadvi antihistamines or decongestants may be helpful for allergies. A sinus infection may require antibiotic treatment. See your healthcare provider if symptoms continue. ?? Medicines Certain prescribed medicines can cause a chronic cough in some people: ??? MARIN inhibitors for high blood pressure. These include enalapril, lisinopril, and others. ??? Beta-blockers for high blood pressure and other conditions. These include propranolol, metoprolol, andothers. Let your healthcare provider know if you are taking any of these. The chronic cough may mean your medicine needs to be changed. ?? Asthma Cough may be the only sign of mild asthma. You may have tests to find out if asthma is causing yourcough. You may also take asthma medicine on a trial basis. ?? Acid reflux (heartburn, GERD) The esophagus is the tube that carries food from the mouth to the stomach. A valve at its lower endprevents stomach acids from flowing upward. If this valve does not work properly, acid from the stomach enters the esophagus. This may cause a burning pain in the upper abdomen or lower chest, belching, or cough. Symptoms are often worse when lying flat. Avoid eating or drinking before bedtime. Tryusing extra pillows to raise your upper body, or place 4-inch blocks under the head of your bed. You may try an tvzt-qgh-iooqsta (OTC) antacid or an acid-blocking medicine such as cimetidine, or omeprazole. Stronger medicines for this condition can be prescribed by your healthcare provider. Ask your healthcare provider which OTC medicine to use. Depending on your current medicines, some OTC medicines may cause drug interactions and should be avoided. ?? Follow-up care Follow up with your healthcare provider, or as advised, if your cough doesn't improve. Further testing may be needed. Note: If an X-ray was taken, you'll be told of any new findings that may affect your care. ?? When to get medical advice Call your healthcare provider right away if any of these occur: ??? Mild wheezing or trouble breathing ??? Fever of 100.4??F (38??C) or higher, or as advised by your provider ??? Unexpected weight loss ??? Coughing up large amounts of colored sputum or blood-tinged sputum ??? Night sweats (sheets and pajamas get soaking wet) ?? Call 911 Call 911 if any of these occur: ??? Coughing up blood ??? Moderate to severe trouble breathing or wheezing ?? Last Reviewed Date: 2021 ?? [id number] [employer]. All rights reserved. This information is not intended as a substitute for professional medical care. Always follow your healthcare professional's instructions. ?? * BHSPowerscriania , DEAN S: TRANSCRIBE Marisol STARK, Andre Ambrosio: VERIFY Event Display: Result: Authored Date: [id number] Chest 2 Views Frontal and Lat Hx of Present Illness: pt states she thinks she has pneumonia. Pt was seen at [facility] and had chest xray, ekg and VQ scan; Reason: Other:; Chest Pain; Clinical Question(s): Other: COMPARISON: 05/10/2022 FINDINGS: LINES AND TUBES: None. LUNGS AND PLEURA: There is persistent left basilar airspace opacity and volume loss which is most consistent with a small effusion and adjacent atelectasis versus pneumonia involving the left lower lobe. This is not significantly changed. The upper left lung is clear. The right lung is clear. No pneumothorax. HEART, MEDIASTINUM AND PAULIE: Heart is at the upper limits of normal for size. Normal mediastinal and hilar contour. BONES AND SOFT TISSUES: No acute abnormality. IMPRESSION: Persistent left basilar opacity and volume loss consistent with small effusion with adjacent compressive atelectasis versus pneumonia involving the left lower lobe. Overall no change from 05/10/2022. WSN: [id number] Ordering Physician: Mikel Martel Dictated By: Andre Damon MD Dictated Date/Time: 05/16/22 8:24 am Reviewed By: Andre Damon MD Signed By: Andre Damon MD Signed Date/Time: 05/16/22 8:24 am Transcribed By: MART Transcribed Date/Time: 05/16/22 8:23 am Patient Care team information Care Team Personnel Name: Val Wynne Position: [facility] Onco RN Member Role: Primary Care Nurse Name: Karen Pittman RN Position: S RN Member Role: Primary Care Nurse Name: Shilpi Mattson Position: Reference Physician Member Role: Primary Care Nurse Address: Address: [address] [place] [address] [address] [place] [address]- Name: Toyin Doherty RN Position: S RN Member Role: Primary Care Nurse Name: Eben Hernandez NP Position: S Associate Professional Member Role: [employer] Provider Address: Address: [address] [place] [address]- Name: Alejandrina Turner RN Position: S RN Member Role: Primary Care Nurse Name: Zoraida Felix RN Position: S RN Member Role: Primary Care Nurse Name: Daphne Hooker RN Position: S RN Member Role: Primary Care Nurse Name: Nasima Gonzalez RN Position: [facility] RN Supv Member Role: Primary Care Nurse Name: Caitlyn Bowie MD Position: [facility] Primary Care Physician Member Role: PCP Address: Address: [address] [place] [address]- Name: Sheeba García Position: [facility] RN Member Role: Primary Care Nurse Name: Kiki Abdi RN Position: [facility] RN Member Role: Primary Care Nurse Name: Marry Reza Position: [facility] RN Member Role: Primary Care Nurse Name: Veronica Hurst [place] Position: [facility] PCO RN Member Role: [employer] Physician Name: Maddie Herrera RN Position: [facility] RN Member Role: Primary Care Nurse Name: Raegan Baptiste RN Position: [facility] RN Member Role: Primary Care Nurse Name: Svitlana Marcum RN Position: [facility] AMB Nurse Member Role: Primary Care Nurse Name: She Pool Position: [facility] RN Member Role: Primary Care Nurse Name: Kaila Latham RN Position: [facility] RN Member Role: Primary Care Nurse Name: Julio C Bahena Position: [facility] RN Member Role: Primary Care Nurse Name: Nasima Heredia RN Position: [facility] RN Member Role: Primary Care Nurse Name: Katherine Nixon PharmD Position: [facility] Associate Professional Member Role: [employer] Provider Address: Address: [address] [place] [address] - Name: Daphne Barton RN Position: [facility] RN Member Role: Primary Care Nurse Name: Katherine Long RN Position: [facility] RN Member Role: Primary Care Nurse Name: Norma Serrano RN Position: [facility] RN Member Role: Primary Care Nurse Name: Aurea Kelly RN Position: [facility] RN Member Role: Primary Care Nurse Name: Seven Kelly RN Position: [facility] RN Member Role: Primary Care Nurse Name: Fani Perez RN Position: [facility] RN Member Role: Primary Care Nurse Name: Emely Her Position: [facility] RN Member Role: Primary Care Nurse Name: Yudith Rothman RN Position: [facility] RN Member Role: Primary Care Nurse Name: Parris Zuluaga RN Position: [facility] RN Member Role: Primary Care Nurse Name: Jada GONZALEZ Attending Position: [facility] ED Medicine MD Name: Shanna King Position: [facility] ED [facility] Member Role: Patient Care Provider Name: Mayra Romo RN Position: [facility] ED RN W/OE and Tasks Member Role: Patient Care Provider Name: Eben Damico Position: [facility] ED [facility] Member Role: [employer] Tube Bender Name: Kayla Saucedo RN Position: [facility] ED RN W/OE and Tasks Member Role: Patient Care Provider Care Team Related Persons Name: MARK ZENAIDA Address: [address] [place] [address] Name: TIA RIVERS Address: home [address] [place] [id number] Name: JOHANN RETANA Address: [place] [address]
--- OUTSIDE RECORDS SUMMARY | 2023-10-14 16:27 | XMS_ITS | Continuity of Care Document ---
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 Start Date: 01/09/22 Stop Date: 01/14/22 Status: Ordered cetirizine 10 mg oral tablet [...] day, 0 Refills, Maintenance, 11/06/21 12:44:00 EDT, [place], Partialfill upon patient request if the prescription [...] Dry Weight Start Date: 12/23/21 Status: Ordered melatonin 3 mg oral tablet 2 tablet = 6 mg, By Mouth, Daily at bedtime, PRN Sleep, 0 Refills, Maintenance, 09/24/21 11:38:00 EDT, Partial fill upon patient request if the prescription is for a schedule II opioid drug. Start Date: 09/24/21 Status: Ordered omeprazole 40 mg oral enteric coated capsule 1 capsule = 40 mg, By Mouth, Daily, # 5 capsule, 0 Refills, Maintenance, 11/09/21 9:33:00 EDT, EC Capsule, [facility], Partial fill upon patient request if the prescription is for a schedule II opioid drug., 160, cm, 11/09/21 1:59:00 EDT... Start Date: 11/09/21 Status: Ordered predniSONE 5 mg oral tablet 1 tablet = 5 mg, By Mouth, Every 48 hours Start Date: 07/03/21 Status: Ordered Probiotic Formula 1 capsule, By Mouth, Daily, 0 Refills, Maintenance, 07/03/21 12:28:00 EST, Partial fill upon patient request if the prescription is for a schedule II opioid drug. Start Date: 07/03/21 Status: Ordered rosuvastatin 10 mg oral tablet 1 tablet = 10 mg, By Mouth, Every Monday, Monday and Monday Start Date: 04/21/21 Status: Ordered Singulair 10 mg oral tablet [...] Date: 07/20/17 Stop Date: 05/16/18 Status: Ordered Toprol XL 25 mg oral [...] EDT, Aerosol Start Date: 01/26/18 Status: Ordered Vitamin C 1000 mg oral tablet 1 tablet = 1,000 mg, By Mouth, Daily, # 30 tablet, 0 Refills, Maintenance, 11/18/21 10:34:00 EDT, Tablet, Partial fill upon patient request if the prescription is for a schedule II opioid drug. Start Date: 11/18/21 Status: Ordered warfarin 1 mg oral tablet [...] Diagnosis Diagnosis Type Effective Dates Health Status Clinical Service Informant 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 Discharge Diagnosis 01/13/22 Antiphospholipid syndrome Discharge Diagnosis 01/13/22 Social History Social History Type Response Smoking Status Never smoker; Tobacc o user in household: No entered on: 04/05/17 Sex
--- OUTSIDE RECORDS SUMMARY | 2023-10-14 16:27 | XMS_ITS | Continuity of Care Document ---
Author Organization [facility] Address [address] [place] [address]- Care Team Providers Care Estimator And Drafter Supervisor Name Role Phone Caitlyn Bowie MD Primary Care Physician Encounter [facility] [place] Date(s): 06/21/21 - 06/28/21 [facility] [address] [place] [address]- Attending Physician: Anish Neil MD Admitting Physician: Anish Neil MD Referring Physician: Caitlyn Bowie MD Allergies, Adverse Reactions, [...] and Recorded Vaccine Date Status Refusal Reason influenza virus vaccine, inactivated 05/15/21 Luis rded influenza virus vaccine, inactivated 04/27/20 Luis rded influenza virus vaccine, inactivated 04/11/18 Give n influenza virus vaccine, inactivated 05/07/17 Luis rded influenza virus vaccine, inactivated 04/16/17 Give n SARS-CoV-2 (COVID-19) mRNA-1273 vaccine 08/06/20 R ecorded Influenza Virus Vaccine (oldterm) 04/22/19 Recorde d pneumococcal 23-valent vaccine 03/25/16 Given pneumococcal 23-valent vaccine 05/09/11 Given tetanus/diphtheria/pertussis, acel(Tdap) 02/28/16 Given pneumococcal 13-valent vaccine 04/21/14 Given Medications Advair HFA 230 mcg / 21 mcg 2 puffs, Inhalation, 2 times a day, INHALE 2 PUFFS TWICE DAILY. Start Date: 09/06/19 Status: Ordered albuterol 0.083% inhalation solution 3 mL = 2.5 mg, Inhalation, Every 6 hours, PRN for wheezing, # 60 each, 0 Refills, Maintenance, 01/26/18 16:35:05 EDT, Solution Start Date: 01/26/18 Status: Ordered diazepam 5 mg oral tablet See Instructions, PRN, TAKE 1/2 TO 1 TAB 5 mg By Mouth Daily at bedtime, # 30 tablet, Refills 3, Tot. Refills 3, Maintenance, as needed for sleep, 02/15/21 12:03:00 EDT, Instructions Replace RequiredDetails, Do Not Route Start Date: 02/15/21 Status: Ordered EPINEPHrine 0.3 mg injectable solution INJECT 1 PEN INTO THE MUSCLE NEEDED DIRECTED Start Date: 04/21/21 Status: Ordered furosemide 20 mg oral tablet 20 mg, 1, tablet, By Mouth, Daily, PRN, # 90 tablet, Refills 2, Tot. Refills 2, Maintenance, leg swelling, 05/07/21 16:28:00 EDT, Route to Pharmacy Electronically, [facility], Partial fill upon patient request if the prescription is for... Start Date: 05/07/21 Status: Ordered INCENTIVE SPIROMETER INCENTIVE SPIROMETER, See Instructions, # 1 Unknown, Refills 0, Tot. Refills 0, Maintenance, dx: sleep apnea G 47.30 use 10 times per hour weight 65kg, 04/21/21 11:39:00 EDT, Supply Start Date: 04/21/21 Status: Ordered magnesium oxide 500 mg oral tablet 1 tablet = 500 mg, By Mouth, Daily, # 14 tablet, 0 Refills, Maintenance, 02/15/21 12:06:00 EDT, Tablet, Partial fill upon patient request if the prescription is for a schedule II opioid drug. Start Date: 02/15/21 Stop Date: 03/01/21 Status: Ordered Metoprolol Succinate ER 50 mg oral tablet, extended release See Instructions, half tablet By Mouth 2 times a day, until follow up by your PCP/cardiology, 0 Refills, Maintenance, 01/26/18 16:36:23 EDT, ER Tablet Start Date: 01/26/18 Status: Ordered nystatin topical 056490 u/gm powder 1 application, Topically, 3 times a day, # 60 Gm, 0 Refills, Acute 07/17/21 10:33:00 EST, 06/14/21 10:33:00 EST, Powder, [facility], Partial fill upon patient request if the prescription is for a schedule II opioid drug., 1 application T... Start Date: 06/14/21 Stop Date: 07/17/21 Status: Ordered omeprazole 40 mg oral enteric coated capsule 1 capsule = 40 mg, By Mouth, Daily, # 30 capsule, 0 Refills, Maintenance, 01/26/18 16:34:25 EDT, ECCapsule Start Date: 01/26/18 Status: Ordered rosuvastatin 10 mg oral tablet TAKE ONE TABLET BY MOUTH EVERY 2 DAYS Start Date: 04/21/21 Status: Ordered Singulair 10 [...] Date: 07/20/17 Stop Date: 05/16/18 Status: Ordered trazodone 50 mg oral tablet 2 tablet = 100 mg, By Mouth, Daily at bedtime, PRN Sleep, Dr. Kelly, # 30 tablet, 0 Refills, Maintenance, 02/14/15 9:19:23 EDT, Tablet Start Date: 02/14/15 Status: Ordered Ventolin HFA 108 mcg/inh inhalation aerosol with adapter 1 puffs, Inhalation, 4 times a day, PRN for wheezing, # 18 Gm, 0 Refills, Maintenance, 01/26/18 16:34:30 EDT, Aerosol Start Date: 01/26/18 Status: Ordered Vitamin D3 oral tablet 5000 IU, By Mouth, Daily, 0 Refills, Maintenance, 03/01/18 15:31:44 EDT Start Date: 03/01/18 Status: Ordered warfarin 1 mg oral tablet See Instructions, Take 3 mg daily, dosing as directed by the coumadin clinic, based on INR in 24-48hrs, # 360 tablet, 1 Refills, Maintenance, 02/24/21 16:22:00 EDT, Tablet, [facility], 134.6, cm, 02/24/21 9:04:00 EDT, Height, 65, kg,... Start Date: 02/24/21 Status: Ordered Problem List Condition Effective Dates Status Health Status Inform ant Situational anxiety(Confirmed) Active Antiphospholipid syndrome(Confirmed) Active Anxiety(Confirmed) Active CHF - Congestive heart failure(Confirmed) Active 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) Active Coronary artery disease(Confirmed) Active Diverticulitis(Confirmed) Active Gastroesophageal reflux disease(Confirmed) Active Heterozygous Factor V Leiden mutation(Confirmed) Active Hyperlipidemia(Confirmed) Active Hypothyroidism(Confirmed) Active Respiratory failure with hypoxia(Confirmed) Active Hypoxia(Confirmed) Active Insomnia(Confirmed) Active LLQ pain(Confirmed) Active Mitral valve prolapse(Confirmed) Active Obstructive sleep apnea lauryn cole with BiPAP(Confirmed) Active Optic neuritis(Confirmed) 1 Active Osteoporosis(Confirmed) Active Bilateral lower extremity pain(Confirmed) Active Platelet function defect(Confirmed) Active Radiation pneumonitis(Confirmed) Active Superficial thrombophlebitis(Confirmed) 2 Active SVT (supraventricular tachycardia)(Confirmed) Active 1left eye 2lower extrem Vital Signs Most recent to oldest [Reference Range]: 1 Height 160 cm (06/21/21 1:05 PM) Weight 56.25 kg (06/21/21 1:05 PM) Oxygen Saturation [94-100 %] 98 % (06/21/21 1:05 PM) Pulse Rate [55-90 bpm] 82 bpm (06/21/21 1:05 PM) Body Mass Index [18.5-24.99] 21.97 (06/21/21 1:05 PM) Blood Pressure [90-138/55-84 mm Hg] 110/ 50mm Hg (06/21/21 1:05 PM) Blood pressure sites Arm, left (06/21/21 1:05 PM) Weight Obtained Via Patient/family state d (06/21/21 1:05 PM) Social History Social History Type Response Smoking Status Never smoker; Tobacc o user in household: No entered on: 04/05/17 Sex
--- OUTSIDE RECORDS SUMMARY | 2023-10-14 16:27 | XMS_ITS | Continuity of Care Document ---
Author Organization [facility] Address [address] [place] [address]- Care Team Providers Care Vp Care Management Name Role Phone Azeb STARK, Caitlyn Thompson Primary Care Physician Encounter [facility] Date(s): 02/28/22 - 03/30/22 [facility] [address] [place] [address]- Allergies, Adverse Reactions, Alerts Substance Reaction Severity [...] Start Date: 01/26/18 Status: Ordered B-Complex SR By Mouth, Daily, 0 Refills, Maintenance, 03/22/22 10:25:00 EDT, Partial fill upon patient request if the prescription is for a schedule II opioid drug. Start Date: 03/22/22 Status: Ordered baclofen 5 mg oral tablet [...] opioid drug. Start Date: 07/03/21 Status: Ordered elderberry oral liquid 15 mL, 0 Refills, Maintenance, 03/22/22 10:25:00 EDT, Partial fill upon patient request if the prescription is for a schedule II opioid drug. Start Date: 03/22/22 Status: Ordered EPINEPHrine 0.3 mg injectable solution = 0.3 mg, Intramuscular, Once, PRN Anaphylactic Reaction Start Date: 04/21/21 Status: Ordered Flonase 50 mcg/inh nasal spray 2 sprays, Nares, Both, 2 times a day, 0 Refills, Maintenance, 11/06/21 12:44:00 EDT, [place], Partialfill upon patient request if the prescription is for a schedule II opioid drug. Start Date: 11/06/21 Status: Ordered furosemide 20 mg oral tablet 1, tablet, By Mouth, Daily, PRN, # 90 tablet, Refills 2, NEEDED FOR LEG SWELLING, Route to Pharmacy Electronically, [facility], 160, cm, 12/23/21 8:08:00 EDT, Height, 59.2, kg, 11/18/21 9:04:00 EDT, Dry Weight Start Date: 12/23/21 Status: Ordered Lidocaine Viscous 2% solution 5 mL = 0.1 Gm, Topically, 3 times a day with meals, PRN for mouth sore pain, Swish and spit., # 20 mL, 0 Refills, Acute 03/08/23 13:25:00 EDT, 03/08/22 13:24:00 EDT, Solution, [email or web address], do not fill unless pt [...] Refills, Maintenance, 11/09/21 9:33:00 EDT, EC Capsule, [facility], Partial fill upon patient request if the prescription is for a schedule II opioid drug., 160, cm, 11/09/21 1:59:00 EDT... Start Date: 11/09/21 Status: Ordered predniSONE 5 mg oral tablet 1 tablet = 5 mg, By Mouth, Every 48 hours Start Date: 07/03/21 Status: Ordered Probiotic Formula By Mouth, Daily, 0 Refills, Maintenance, 03/22/22 10:26:00 EDT, Partial fill upon patient request if the prescription is for a schedule II opioid drug. Start Date: 03/22/22 Status: Ordered rosuvastatin 10 mg oral tablet [...] opioid drug. Start Date: 09/24/21 Status: Ordered Zinc = 50 mg, By Mouth, Daily, 0 Refills, Maintenance, 03/22/22 10:25:00 EDT, Partial fill upon patient request if the prescription is for a schedule II opioid drug. Start Date: 03/22/22 Status: Ordered Problem List Condition Effective Dates [...] (venous thromboembolism)(Confirmed) Active 1left eye 2lower extrem Social History Social History Type Response Smoking Status Never smoker; Tobacc o user in household: No entered on: 04/05/17 Sex Care Team Personnel Name: Caitlyn Bowie MD Address: [address] [place] [address]
--- OUTSIDE RECORDS SUMMARY | 2023-10-14 16:27 | XMS_ITS | Continuity of Care Document ---
Author Organization [facility] Address [address] [address]- Care Team Providers Care Seamless Tube Drawer Name Role Phone Brennan Burnett MD Primary Care Physician [phone] Encounter [facility] Date(s): 10/28/20 - 11/27/20 [facility] [address] [place] [address] [id number] Allergies, Adverse Reactions, Alerts Substance Reaction Severity Status ciprofloxacin Active gentamicin Active erythromycin Active penicillin 1 Active vancomycin Active morphine Active barium sulfate Active sulfa [...] and Recorded Vaccine Date Status Refusal Reason Influenza Virus Vaccine (oldterm) 04/22/19 Recorde d influenza virus vaccine, inactivated 04/11/18 Give n influenza virus vaccine, inactivated 04/16/17 Give n pneumococcal 23-valent vaccine 03/25/16 Given pneumococcal 23-valent vaccine 05/09/11 Given tetanus/diphtheria/pertussis, acel(Tdap) 02/28/16 Given pneumococcal 13-valent vaccine 04/21/14 Given Medications Advair HFA 230 mcg / 21 mcg INHALE 2 PUFFS TWICE DAILY. Start Date: 09/06/19 Status: Ordered albuterol 0.083% inhalation solution 3 mL = 2.5 mg, Inhalation, Every 6 hours, PRN for wheezing, # 60 each, 0 Refills, Maintenance, 01/26/18 16:35:05 EDT, Solution Start Date: 01/26/18 Status: Ordered Dulcolax Stool Softener = 100 mg, By Mouth, 2 times a day, 0 Refills, Maintenance, 08/24/17 13:50:07 Start Date: 08/24/17 Status: Ordered EpiPen 2-Daniel = 0.3 mg, Intramuscular, Once, PRN anaphylaxis, 0 Refills, Maintenance, 03/01/18 15:32:26 EDT Start Date: 03/01/18 Status: Ordered Metoprolol Succinate ER 50 mg oral tablet, extended release 1 tablet = 50 mg, By Mouth, Daily, Dr. primo Renee at [place], # 30 tablet, 0 Refills, Maintenance, 01/26/18 16:36:23 EDT, ER Tablet Start Date: 01/26/18 Status: Ordered omeprazole 40 mg oral enteric coated capsule 1 capsule = 40 mg, By Mouth, Daily, # 30 capsule, 0 Refills, Maintenance, 01/26/18 16:34:25 EDT, ECCapsule Start Date: 01/26/18 Status: Ordered Pravastatin By Mouth, Daily, 0 Refills, Maintenance, 08/25/20 11:52:00 EST, Partial fill upon patient request if the prescription is for a schedule II opioid drug. Start Date: 08/25/20 Status: Ordered Probiotic Formula oral capsule 1 capsule, By Mouth, Daily, 0 Refills, Maintenance, 08/24/17 13:48:34 Start Date: 08/24/17 Status: Ordered Singulair 10 mg oral tablet [...] 1 mg oral tablet See Instructions, Take 1-4 tablets daily as directed by the coumadin clinic, # 360 tablet, 0 Refills, Maintenance, 06/02/20 15:08:00 EST, Tablet, [facility], 160, cm, 05/06/20 14:18:00 EDT, Height, 60.9, kg, 12/26/19 18:57:00 EDT, Dry We... Start Date: 06/02/20 Status: Ordered ZyrTEC 10 mg oral tablet 1 tablet = 10 mg, By Mouth, Daily, # 30 tablet, 0 Refills, Maintenance, 08/24/17 13:47:49, Tablet Start Date: 08/24/17 Status: Ordered Problem List Condition Effective Dates Status Health Status Inform ant Situational anxiety(Confirmed) Active Antiphospholipid syndrome(Confirmed) Active CHF - Congestive heart failure(Confirmed) Active 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) Active Gastroesophageal reflux disease(Confirmed) Active Heterozygous Factor V Leiden mutation(Confirmed) Active Hyperlipidemia(Confirmed) Active Hypothyroidism(Confirmed) Active Insomnia(Confirmed) Active Mitral valve prolapse(Confirmed) Active Optic neuritis(Confirmed) 1 Active Osteoporosis(Confirmed) Active Platelet function defect(Confirmed) Active Radiation pneumonitis(Confirmed) Active Sleep apnea, CPAP(Confirmed) Active Superficial thrombophlebitis(Confirmed) 2 Active SVT (supraventricular tachycardia)(Confirmed) Active 1left eye 2lower extrem Social History Social History Type Response Smoking Status Never smoker; Tobacc o user in household: No entered on: 04/05/17 Sex
--- OUTSIDE RECORDS SUMMARY | 2023-10-14 16:27 | XMS_ITS | Continuity of Care Document ---
Author Organization [facility] Address [address] [place] [address]- Care Team Providers Care Yard Engineer Name Role Phone Caitlyn Bowie MD Primary Care Physician Encounter [facility] Date(s): 08/11/21 - 09/10/21 [facility] [address] [place], [place] [address] Allergies, Adverse Reactions, Alerts Substance Reaction Severity [...] Not Route Start Date: 02/15/21 Status: Ordered docusate sodium 100 mg oral capsule 100 mg, 1, capsule, By Mouth, 2 times a day, PRN, # 20 capsule, Refills 0, Maintenance, for constipation, 07/03/21 12:28:00 EST, Partial fill upon patient request if the prescription is for a schedule II opioid drug. Start Date: 07/03/21 Status: Ordered doxycycline monohydrate 100 mg oral tablet 1 tablet = 100 mg, By Mouth, 2 times a day, for 10 days, take with food, # 20 tablet, 0 Refills, Acute 09/13/21 12:24:00 EST, 09/03/21 12:24:00 EST, Tablet, [facility], Partial fillupon patient request if the prescription is for a sched... Start Date: 09/03/21 Stop Date: 09/13/21 Status: Ordered elderberry oral liquid 0 Refills, Maintenance, 07/03/21 12:30:00 EST, Partial fill upon patient request if the prescription is for a schedule II opioid drug. Start Date: 07/03/21 Status: Ordered EPINEPHrine 0.3 mg injectable solution = 0.3 mg, Intramuscular, Once Start Date: 04/21/21 Status: Ordered furosemide 20 mg oral tablet 20 mg, 1, tablet, By Mouth, Daily, PRN, # 90 tablet, Refills 2, Tot. Refills 2, Maintenance, leg swelling, 05/07/21 16:28:00 EDT, Route to Pharmacy Electronically, [facility], Partial fill upon patient request if the prescription is for... Start Date: 05/07/21 Status: Ordered meclizine 25 mg oral tablet 1 tablet = 25 mg, By Mouth, 3 times a day, PRN for motion sickness, # 30 tablet, 0 Refills, Acute 09/18/21 12:09:00 EST, 08/20/21 12:08:00 EST, Tablet, [facility], Partial fill uponpatient request if the prescription is for a schedule I... Start Date: 08/20/21 Stop Date: 09/18/21 Status: Ordered metoprolol 50 mg oral tablet, extended release 50 mg, 1, tablet, By Mouth, 2 times a day, # 30 tablet, Refills 0, Maintenance, 09/01/21 11:42:00 EST, Partial fill upon patient request if the prescription is for a schedule II opioid drug. Start Date: 09/01/21 Status: Ordered omeprazole 40 mg oral enteric coated capsule 1 capsule = 40 mg, By Mouth, Daily, # 30 capsule, 0 Refills, Maintenance, 07/03/21 11:04:00 EST, ECCapsule, Partial fill upon patient request if the prescription is for a schedule II opioid drug. Start Date: 07/03/21 Status: Ordered predniSONE 5 mg oral tablet 1 tablet = 5 mg, By Mouth, Every 48 hours Start Date: 07/03/21 Status: Ordered Probiotic Formula By Mouth, Daily, 0 Refills, Maintenance, 07/03/21 [...] Aerosol Start Date: 01/26/18 Status: Ordered Vitamin B Complex with C and Iron oral capsule 1 capsule, By Mouth, Daily, # 90 capsule, 0 Refills, Maintenance, 07/03/21 12:29:00 EST, Capsule, Partial fill upon patient request if the prescription is for a schedule II opioid drug. Start Date: 07/03/21 Status: Ordered Vitamin C 1000 mg oral tablet 1 tablet = 1,000 mg, By Mouth, Daily, # 30 tablet, 0 Refills, Maintenance, 07/03/21 12:29:00 EST, Tablet, Partial fill upon patient request if the prescription is for a schedule II opioid drug. Start Date: 07/03/21 Status: Ordered Vitamin D3 oral tablet 5000 [...] 65, kg,... Start Date: 02/24/21 Status: Ordered zinc (as gluconate) 50 mg oral tablet 2 tablet = 100 mg, By Mouth, Daily, 0 Refills, Maintenance, 07/03/21 12:30:00 EST, Partial fill upon patient request if the prescription is for a schedule II opioid drug. Start Date: 07/03/21 Status: Ordered Problem List Condition Effective Dates Status Health Status Inform ant Situational anxiety(Confirmed) Active Antiphospholipid syndrome(Confirmed) Active Anxiety(Confirmed) Active CHF - Congestive heart failure(Confirmed) Active 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) Active Coronary artery disease(Confirmed) Active Diverticulitis(Confirmed) Active Epigastric pain(Confirmed) Active Gastroesophageal reflux disease(Confirmed) Active Heterozygous Factor [...]
--- OUTSIDE RECORDS SUMMARY | 2023-10-14 16:27 | XMS_ITS | Continuity of Care Document ---
Author Organization [facility] Address [address] [place] [address]- Care Team Providers Care Heavy Equipment Operating Engineer Name Role Phone Caitlyn Bowie MD Primary Care Physician Encounter [facility] R [id number] Date(s): 08/23/23 - 08/30/23 [facility] [address] [place] [address]- Encounter Diagnosis Shoulder pain(Discharge Diagnosis) - 08/23/23 Attending Physician: Tez Capellan MD Allergies, Adverse Reactions, Alerts Substance Reaction Severity Status ciprofloxacin Active gentamicin Active clindamycin throat tightening Active erythromycin Active penicillin 1 Active vancomycin [...] Status Refusal Reason influenza virus vaccine, inactivated 05/13/23 Luis rded influenza virus vaccine, inactivated 05/13/22 Luis rded influenza virus vaccine, inactivated 05/15/21 Luis rded influenza virus vaccine, inactivated 04/27/20 Luis rded influenza virus vaccine, inactivated 04/11/18 Give n influenza virus vaccine, inactivated 05/07/17 Luis rded influenza virus vaccine, inactivated 04/16/17 Give n pneumococcal 23-valent vaccine 08/31/21 Recorded pneumococcal 23-valent vaccine 03/25/16 Given pneumococcal 23-valent vaccine 05/09/11 Given SARS-CoV-2 (COVID-19) mRNA-1273 vaccine 09/03/20 R ecorded [...] EDT, ; Start Date: 03/22/22 Status: Ordered diazepam 5 mg oral tablet See Instructions, TAKE ONE-HALF TABLET BY MOUTH FOUR TIMES A DAY NEEDED FOR ANXIETY AND SLEEP, #60 tablet, Refills 5, Tot. Refills 5, Hard Stop 06/29/24 14:59:00 EST, 05/17/23 14:56:00 EST, Instructions Replace Required Details, Route to Pharmacy... Start Date: 05/17/23 Stop Date: 06/29/24 Status: Ordered diazepam 5 mg oral tablet See Instructions, PRN, 1/2 tab 4 times per day, # 30 tablet, Refills 1, Tot. Refills 1, Maintenance, anxiety & sleep, 04/05/23 15:58:00 EDT, Instructions Replace Required Details, Route to Pharmacy Electronically, [facility], Partial patrice... Start Date: 04/05/23 Status: Ordered diazepam 5 mg oral tablet See Instructions, TAKE ONE-HALF TABLET BY MOUTH FOUR TIMES A DAY NEEDED FOR ANXIETY AND SLEEP, #60 tablet, Refills 5, Tot. Refills 5, Maintenance, 06/29/24 14:59:00 EST, Instructions Replace Required Details, Route to Pharmacy Electronically, [facility]... Start Date: 06/29/24 Status: Ordered docusate sodium 100 mg oral capsule 100 mg, 1, capsule, By Mouth, 2 times a day, Refills 0, Maintenance, 07/03/21 12:28:00 EST, ; Start Date: 07/03/21 Status: Ordered doxycycline monohydrate 100 mg oral tablet See Instructions, take 1 tab with dinner tonight and one with breakfast tomorrow and then one with dinner, # 3 tablet, 0 Refills, Maintenance, 08/14/23 11:43:00 EST, Tablet, [facility], Partial fill upon patient request if the prescripti... Start Date: 08/14/23 Status: Ordered elderberry oral liquid 15 mL, By Mouth, Daily, 0 Refills, Maintenance, 03/22/22 10:25:00 EDT, ; Start Date: 03/22/22 Status: Ordered EPINEPHrine 0.3 mg injectable solution = 0.3 mg, Intramuscular, Once, PRN Anaphylactic Reaction Start Date: 04/21/21 Status: Ordered EpiPen 2-Daniel 0.3 mg injectable kit = 0.3 mg, Intramuscular, Once, may repeat if necessary, # 2 each, 0 Refills, Soft Stop, 06/29/23 17:22:00 EST, [facility], Partial fill upon patient request if the prescription is for a schedule II opioid drug., 159, cm, 06/29/23 11:09:0... Start Date: 06/29/23 Status: Ordered ferrous gluconate 324 mg oral tablet 1 tablet = 324 mg, By Mouth, Daily, WITH BREAKFAST Start Date: 04/22/22 Status: Ordered Furosemide = 40 mg, 2 times a day, 0 Refills, Maintenance, 09/14/22 14:12:00 EST, Partial fill upon patient request if the prescription is for a schedule II opioid drug. Start Date: 09/14/22 Status: Ordered levothyroxine 25 mcg (0.025 mg) oral capsule 1 capsule = 25 mcg, By Mouth, Daily, Monday through Monday, Maintenance, 05/16/22 11:23:00 EST, Capsule, ; Start Date: 05/16/22 Status: Ordered levothyroxine 50 mcg (0.05 mg) oral capsule 1 capsule = 50 mcg, By Mouth, Daily, Monday & Monday's, Maintenance, 05/16/22 11:23:00 EST, ; Start Date: 05/16/22 Status: Ordered Metoprolol Succinate ER 25 mg oral tablet, extended release 3 tablets, By Mouth, 2 times a day, TAKE ONE TABLET BY MOUTH TWICE A DAY WITH BREAKFAST AND DINNER,# 180 tablet, 0 Refills, Maintenance, 03/24/23 11:27:00 EDT, ER Tablet, Partial fill upon patient request if the prescription is for a schedule II opio... Start Date: 03/24/23 Stop Date: 04/23/23 Status: Ordered omeprazole 40 mg oral enteric coated capsule 1 capsule = 40 mg, By Mouth, Daily, PRN as needed, Maintenance, 05/16/22 11:22:00 EST, EC Capsule, ; Start Date: 05/16/22 Status: Ordered Orthotics See Instructions, # 1 each, Maintenance, Molded orthotics for bilateral feet. Diagnosis: Arthritis of feet with pain, 10/20/22 16:39:00 EDT, Supply Start Date: 10/20/22 Status: Ordered predniSONE 5 mg oral tablet = 2.5 mg, By Mouth, Every other day, 0 Refills, Maintenance, 04/20/23 8:55:00 EDT, Tablet, Partial fill upon patient request if the prescription is for a schedule II opioid drug. Start Date: 04/20/23 Status: Ordered rosuvastatin 10 mg oral tablet 1 tablet = 10 mg, By Mouth, Every Monday, Monday and Monday, Maintenance, 07/29/22 11:16:00 EST,Tablet, Partial fill upon patient request if the prescription is for a schedule II opioid drug. Start Date: 07/29/22 Status: Ordered Singulair 10 mg oral tablet 10 mg, 1, tablet, By Mouth, Daily in PM, Dr. Kelly, Refills 0, Maintenance, 08/24/17 13:50:25 EST Start Date: 08/24/17 Status: Ordered traZODone 50 mg oral tablet 100 mg, 2, tablet, By Mouth, Daily at bedtime, Dr. Kelly, # 30 tablet, Refills 0, Tot. Refills 0, Maintenance, 06/28/22 14:15:00 EST, Do Not Route, Partial fill upon patient request if the prescription is for a schedule II opioid drug. Start Date: 06/28/22 Status: Ordered Ventolin HFA 108 mcg/inh inhalation aerosol with adapter 2 puffs, Inhalation, Every 6 hours, PRN Wheezing/Shortness of Breath, 0 Refills, Maintenance, 01/26/18 16:34:30 EDT, Aerosol Start Date: 01/26/18 Status: Ordered warfarin 1 mg oral tablet See Instructions, take 2-3 tablets By Mouth Daily as directed by the anticoagulation clinic, # 180 tablet, 2 Refills, Maintenance, 07/28/23 16:38:00 EST, [facility], Partial fill upon patient request if the prescription is for a schedul... 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 Confirmed Active Thoracic compression fracture Confirmed Active Constipation Confirmed Active Coronary artery disease Confirmed Active Gastroesophageal reflux disease Confirmed Active MIS (generalized anxiety disorder) Confirmed Active Chronic heart failure with preserved ejection fraction (HFpEF) Confirmed Active Hematochezia Confirmed Active Heterozygous Factor V Leiden mutation Confirmed Active S/P mitral valve clip implantation Confirmed Active Hyperlipidemia Confirmed Active HTN (hypertension) Confirmed Active Hypothyroidism Confirmed Active Insomnia Confirmed Active Mitral valve prolapse Confirmed Active Mitral regurgitation Confirmed Active Obstructive sleep apnea treated with BiPAP Confirmed Active Occipital headache Confirmed Active Optic neuritis 1 Confirmed Active Osteoporosis Confirmed Active Platelet function defect Confirmed Active Radiation pneumonitis Confirmed Active SVT (supraventricular tachycardia) Confirmed Active Vertigo Confirmed Active 1left eye Diagnosis Diagnosis Type Effective Dates Health Status Cl inical Service Informant Shoulder pain Discharge Diagnosis 08/23/23 Social History Social History Type Response Smoking Status Never smoker; Tobacc o user in household: No entered on: 04/05/17 Sex Patient Care team information Care Team Personnel Name: Val Wynne Position: [facility] Onco RN Member Role: Primary Care Nurse Name: Karen Pittman RN Position: S RN Member Role: Primary Care Nurse Name: Shilpi Mattson Position: Reference Physician Member Role: Primary Care Nurse Address: Address: [address] [place] [address]- Name: Toyin Doherty RN Position: S RN Member Role: Primary Care Nurse Name: Eben Hernandez NP Position: S Associate Professional Member Role: Lifetime Consulting Provider Address: Address: [address] [place] [id number]- [place] Name: Alejandrina Turner RN Position: [facility] RN Member Role: Primary Care Nurse Name: Zoraida Felix RN Position: [facility] ED RN W/OE and Tasks Member Role: Primary Care Nurse Name: Jaye Harley Position: [facility] MA Director Experimental Medicine Member Role: Environmental Services Technician Name: Daphne Hooker RN Position: [facility] RN Member Role: Primary Care Nurse Name: Nasima Gonzalez RN Position: [facility] RN Supv Member Role: Primary Care Nurse Name: Caitlyn Bowie MD Position: [facility] Physician - Primary Care Member Role: PCP Address: Address: [address] [place] [address] - [place] Name: Kiki Abdi RN Position: [facility] RN Member Role: Primary Care Nurse Name: Marry Reza Position: [facility] RN Member Role: Primary Care Nurse Name: Veronica Hurst MA Position: [facility] AMB MA Member Role: Lifetime Consulting Physician Name: Maddie Herrera RN Position: [facility] AMB Nurse Member Role: Primary Care Nurse Name: Yudith Herrera RN Position: [facility] Onco RN Member Role: Primary Care Nurse Name: Raegan Baptiste RN Position: [facility] RN Member Role: Primary Care Nurse Name: She Pool Position: [facility] RN Member Role: Primary Care Nurse Name: Kaila Latham RN Position: [facility] RN Member Role: Primary Care Nurse Name: Julio C Bahena Position: [facility] RN Member Role: Primary Care Nurse Name: Nasima Heredia RN Position: [facility] RN Member Role: Primary Care Nurse Name: Katherine Nixon PharmD Position: [facility] Associate Professional Member Role: Lifetime Consulting Provider Address: Address: [address] [place] [address] - [place] Name: Daphne Barton RN Position: [facility] RN Member Role: Primary Care Nurse Name: Katherine Long RN Position: [facility] RN Member Role: Primary Care Nurse Name: Norma Serrano RN Position: [facility] RN Member Role: Primary Care Nurse Name: Seven Kelly RN Position: [facility] MADELINE RN W/OE and Tasks Member Role: Primary Care Nurse Name: Fani Perez RN Position: [facility] RN Member Role: Primary Care Nurse Name: Hattie Brewster RN Position: S RN Member Role: Primary Care Nurse Name: Kelly Hernandez RN Position: [facility] RN Member Role: Primary Care Nurse Name: Pallavi Wylie LPN Position: [facility] RN Member Role: Primary Care Nurse Name: Parris Zuluaga RN Position: [facility] RN Member Role: Primary Care Nurse Care Team Related Persons Name: MARKZENAIDA ADAIR Address: [place] [address] Name: TIA RIVERS Address: [place] [address] Name: JOHANN RETANA Address: [place] [address]
--- OUTSIDE RECORDS SUMMARY | 2023-10-14 16:27 | XMS_ITS | Continuity of Care Document ---
Author Organization [facility] Address [address] [place] [address]- Care Team Providers Care Tools Administrator Name Role Phone Peewee STARK, Sharon Primary Care Physician ( [phone] Encounter [facility] Date(s): 07/05/19 - 07/05/[address] [address]- [facility] Attending Physician: Yenny Elizalde MD Allergies, Adverse Reactions, Alerts Substance Reaction Severity Status ciprofloxacin Active gentamicin Active erythromycin Active penicillin Active vancomycin Active morphine Active barium sulfate Active sulfa drugs Active iodinated radiocontrast dyes Active Voltaren Active Zithromax Active Flagyl Active Novocain Active Biaxin Active Gastrografin Active Levaquin Avocado Active Avelox Active Bee Stings Active Contrast Dye Active Mold Active Shrimp Active Avocado Active Immunizations Given and Recorded Vaccine Date Status Refusal Reason Influenza Virus Vaccine (oldterm) 04/22/19 Recorde d influenza virus vaccine, inactivated 04/11/18 Give n influenza virus vaccine, inactivated 04/16/17 Give n pneumococcal 23-valent vaccine 03/25/16 Given pneumococcal 23-valent vaccine 05/09/11 Given tetanus/diphtheria/pertussis, acel(Tdap) 02/28/16 Given pneumococcal 13-valent vaccine 04/21/14 Given Medications albuterol 0.083% inhalation solution 3 mL = [...] By Mouth, Daily, Dr. primo Renee at [place], # 30 tablet, 0 Refills, Maintenance, 01/26/18 16:36:23 EDT, ER Tablet Start Date: 01/26/18 Status: Ordered omeprazole 40 mg oral enteric coated capsule 1 capsule = 40 mg, By Mouth, Daily, # 30 capsule, 0 Refills, Maintenance, 01/26/18 16:34:25 EDT, ECCapsule Start Date: 01/26/18 Status: Ordered Probiotic Formula oral capsule 1 [...] by the coumadin clinic, # 360 tablet, 1 Refills, Maintenance, 01/24/19 16:53:16 EDT, Tablet Start Date: 01/24/19 Status: Ordered ZyrTEC 10 mg oral tablet [...]
--- OUTSIDE RECORDS SUMMARY | 2023-10-14 16:27 | XMS_ITS | Continuity of Care Document ---
Author Organization [facility] Address [address] [address]- Care Team Providers Care Laboratory Miller Name Role Phone Sharon Vides MD Primary Care Physician Encounter [facility] Date(s): 09/30/19 - 11/06/19 [facility] [address] [address]- [facility] Attending Physician: Rosendo Humphries MD Admitting Physician: Rosendo Humphries MD Referring Physician: Sharon Vides MD Allergies, Adverse Reactions, Alerts Substance Reaction [...] EDT, Solution Start Date: 01/26/18 Status: Ordered Demeclocycline = 100 mg, By Mouth, 2 times a day, 0 Refills, Maintenance, 09/11/19 13:18:00 EST Start Date: 09/11/19 Status: Ordered Dulcolax Stool Softener = 100 [...] By Mouth, Daily, Dr. primo Renee at [place], # 30 tablet, 0 Refills, Maintenance, 01/26/18 16:36:23 EDT, ER Tablet Start Date: 01/26/18 Status: Ordered metroNIDAZOLE 500 mg oral tablet 1 tablet = 500 mg, By Mouth, Every 8 hours, may take with food to minimize abdominal discomfort, # 18 tablet, 0 Refills, Maintenance, 09/06/19 14:42:00 EST, Tablet, [facility] 3, 160, cm,09/06/19 7:35:00 EST, Height, 60.3, kg, 09/06/19 3:... Start Date: 09/06/19 Status: Ordered omeprazole 40 mg oral enteric [...] clinic, # 360 tablet, 1 Refills, Maintenance, 08/01/19 15:30:00 EST, Tablet, [facility], 160, cm, 06/12/19 14:38:00 EST, Height, 61.7, kg, 05/29/19 14:33:00 EST, Dry We... Start Date: 08/01/19 Status: Ordered ZyrTEC 10 mg oral tablet [...]
--- OUTSIDE RECORDS SUMMARY | 2023-10-14 16:27 | XMS_ITS | Continuity of Care Document ---
Author Organization [facility] Address [address] [place] [address]- Care Team Providers Care Fabric Worker Leader Name Role Phone Azeb STARK, Caitlyn Thompson Primary Care Physician [phone] Encounter [facility] Date(s): 10/21/21 - 10/28/21 [facility] [address] [place], [place] [address] Attending Physician: Donell Mcmahon MD Allergies, Adverse Reactions, Alerts Substance Reaction Severity Status ciprofloxacin Active penicillin 1 Active ipratropium Active barium sulfate Active Zithromax Active Flagyl Active gentamicin Active erythromycin Active vancomycin Active busPIRone Feeling of throat ti ghtness Headache Dizziness Active morphine Active sulfa drugs Active iodinated radiocontrast dyes Active Voltaren Active Gastrografin Active Levaquin Avocado Active Novocain Active Biaxin Active Bee Stings Active Contrast Dye Active Shrimp Active Avocado Active Avelox Active Mold Active 1Allergy testing doen 09/26 was negative [...] Solution Start Date: 01/26/18 Status: Ordered B-Complex 50 1 tablet, By Mouth, Daily, 0 Refills, Maintenance, 09/24/21 11:38:00 EDT, Partial fill upon patientrequest if the prescription is for a schedule II opioid drug. Start Date: 09/24/21 Status: Ordered docusate sodium 100 mg oral capsule 100 mg, 1, capsule, By Mouth, 2 times a day, PRN, Refills 0, Maintenance, for constipation, 07/03/21 12:28:00 EST, Partial fill upon patient request if the prescription is for a schedule II opioid drug. Start Date: 07/03/21 Status: Ordered elderberry oral liquid 15 mL, By Mouth, Daily, 0 Refills, Maintenance, 07/03/21 12:30:00 EST, Partial fill upon patient request if the prescription is for a schedule II opioid drug. Start Date: 07/03/21 Status: Ordered EPINEPHrine 0.3 mg injectable solution = 0.3 mg, Intramuscular, Once, PRN Anaphylactic Reaction Start Date: 04/21/21 Status: Ordered furosemide 20 mg oral tablet 20 mg, 1, tablet, By Mouth, Daily, PRN, # 90 tablet, Refills 2, Tot. Refills 2, Maintenance, leg swelling, 05/07/21 16:28:00 EDT, Route to Pharmacy Electronically, [facility], Partial fill upon patient request if the prescription is for... Start Date: 05/07/21 Status: Ordered melatonin 3 mg oral tablet 2 tablet = 6 mg, By Mouth, Daily at bedtime, PRN Sleep, 0 Refills, Maintenance, 09/24/21 11:38:00 EDT, Partial fill upon patient request if the prescription is for a schedule II opioid drug. Start Date: 09/24/21 Status: Ordered predniSONE 5 mg oral tablet [...] Aerosol Start Date: 01/26/18 Status: Ordered Vitamin B-12 500 mcg oral tablet 1 tablet = 500 mcg, By Mouth, Daily, 0 Refills, Maintenance, 09/24/21 11:38:00 EDT, Partial fill upon patient request if the prescription is for a schedule II opioid drug. Start Date: 09/24/21 Status: Ordered Vitamin C 1000 mg oral [...] opioid drug. Start Date: 09/24/21 Status: Ordered zinc (as gluconate) 50 mg oral tablet 1 tablet = 50 mg, By Mouth, Daily, 0 Refills, Maintenance, 07/03/21 12:30:00 EST, Partial fill uponpatient request if the prescription [...] Epigastric pain(Confirmed) Active Gastroesophageal reflux disease(Confirmed) Active Hematoma of right lower leg(Confirmed) Active [...] oldest [Reference Range]: 1 Height 160 cm (10/21/21 4:29 PM) Weight 58.3 kg (10/21/21 4:29 PM) Oxygen Saturation [94-100 %] 96 % (10/21/21 4:29 PM) Pulse Rate [55-90 bpm] 85 bpm (10/21/21 4:29 PM) Body Mass Index [18.5-24.99] 22.77 (10/21/21 4:29 PM) Blood Pressure [90-138/55-84 mm Hg] 122/ 62mm Hg (10/21/21 4:29 PM) Mode of Delivery (Oxygen) Room air (10/21/21 4:29 PM) Blood pressure sites Arm, left (10/21/21 4:29 PM) Weight Obtained Via Standing scale (10/21/21 4:29 PM) Social History Social History Type Response Smoking Status Never smoker; Tobacc o user in household: No entered on: 04/05/17 Sex
--- OUTSIDE RECORDS SUMMARY | 2023-10-14 16:27 | XMS_ITS | Continuity of Care Document ---
Author Organization [facility] Address [address] [place] [address]- Care Team Providers Care Vp Communications Name Role Phone Caitlyn Bowie MD Primary Care Physician Encounter [facility] Date(s): 06/15/21 - 07/15/21 [facility] [address] [place], [place] [address] Allergies, Adverse Reactions, Alerts Substance Reaction Severity [...] By Mouth, 2 times a day, for 14 days, filled 06/23/2021, Physician Stop 07/17/2211:33:00 EST Start Date: 07/03/21 Stop Date: 07/17/21 Status: Ordered elderberry oral liquid 0 Refills, [...] is for... Start Date: 05/07/21 Status: Ordered Metoprolol Succinate ER 25 mg oral tablet, extended release 1 tablet = 25 mg, By Mouth, 2 times a day, 0 Refills, Maintenance, 07/03/21 12:27:00 EST, Partial fill upon patient request if the prescription is for a schedule II opioid drug. Start Date: 07/03/21 Status: Ordered nystatin topical 233075 u/gm powder 1 application, Topically, 3 times [...]
--- OUTSIDE RECORDS SUMMARY | 2023-10-14 16:28 | XMS_ITS | Continuity of Care Document ---
Author Organization [facility] Address [address] [place] [address]- Care Team Providers Care Golf Course Keeper Name Role Phone Azeb STARK, Caitlyn Thompson Primary Care Physician Encounter [facility] Date(s): 02/14/22 - 03/16/22 [facility] [address] [place] [address]- Allergies, Adverse Reactions, Alerts Substance Reaction Severity [...] day, 0 Refills, Maintenance, 11/06/21 12:44:00 EDT, [place], Partialfill upon patient request if the prescription [...] 03/08/23 13:25:00 EDT, 03/08/22 13:24:00 EDT, Solution, [facility], do not fill unless pt calls., 5 mL Topically 3 ti... Start Date: 03/08/22 Stop Date: 03/08/23 Status: Ordered meclizine 25 mg oral tablet See Instructions, PRN as needed for dizziness, can take extra 25mg for up to four per day, # 60 tablet, 4 Refills, Physician Stop, 09/30/21 13:21:00 EDT, [facility], 160, cm, 09/24/21 16:15:00 EDT, Height, 57.5, kg, 09/24/21 1:23:00 EDT... Start Date: 09/30/21 Status: Ordered omeprazole 40 mg oral enteric coated capsule 1 capsule = 40 mg, By Mouth, Daily, # 5 capsule, 0 Refills, Maintenance, 11/09/21 9:33:00 EDT, EC Capsule, [facility] 3, Partial fill upon patient request if [...] Team Personnel Name: Caitlyn Bowie MD Address: [address] [place] [address]
--- OUTSIDE RECORDS SUMMARY | 2023-10-14 16:28 | XMS_ITS | Continuity of Care Document ---
Author Organization [facility] Address [address] [place] [address]- Care Team Providers Care Applications Systems Analyst Name Role Phone Sharon Vides MD Primary Care Physician ( [phone] Encounter [facility] Date(s): 01/09/20 - 02/14/20 [facility] [address] [place] [address]- [facility] Attending Physician: Rosendo Humphries MD Admitting Physician: [...] By Mouth, Daily, Dr. primo Renee at [place], # 30 tablet, 0 Refills, Maintenance, 01/26/18 16:36:23 EDT, ER Tablet Start Date: 01/26/18 Status: Ordered metroNIDAZOLE 500 mg oral tablet 1 tablet = 500 mg, By Mouth, Every 8 hours, may take with food to minimize abdominal discomfort, # 18 tablet, 0 Refills, Maintenance, 09/06/19 14:42:00 EST, Tablet, [facility] 3, 160, cm,09/06/19 7:35:00 EST, Height, 60.3, [...] clinic, # 360 tablet, 1 Refills, Maintenance, 01/09/20 13:41:00 EDT, Tablet, [facility], 160, cm, 12/26/19 18:57:00 EDT, Height, 60.9, kg, 12/26/19 18:57:00 EDT, Dry We... Start Date: 01/09/20 Status: Ordered ZyrTEC 10 mg oral tablet [...]
--- OUTSIDE RECORDS SUMMARY | 2023-10-14 16:28 | XMS_ITS | Continuity of Care Document ---
Author Organization [facility] Address [address] [place] [address]- Care Team Providers Care Business Development Sales Executive Name Role Phone Caitlyn Bowie MD Primary Care Physician [phone] Encounter [facility] Date(s): 12/20/22 - 01/19/23 [facility] [address] [place] [address]- Attending Physician: Melissa Morrison Admitting Physician: Melissa Morrison Referring Physician: Melissa Morrison Referring Physician: Toyin Cm Allergies, Adverse Reactions, Alerts Substance Reaction Severity [...] Status Refusal Reason influenza virus vaccine, inactivated 05/13/22 Luis rded [...] EDT, ; Start Date: 03/22/22 Status: Ordered codeine sulfate 30 mg oral tablet See Instructions, PRN as needed for pain, take 1/2 to 1 tablet By Mouth BID, # 10 tablet, 0 Refills, Maintenance, 12/13/22 15:37:00 EDT, Tablet, [facility], Partial fill upon patient request if the prescription is for a schedule II opioi... Start Date: 12/13/22 Status: Ordered diazepam 5 mg oral tablet See Instructions, PRN, 1/2 tab 4 times per day, # 30 tablet, Refills 1, Tot. Refills 1, Maintenance, anxiety & sleep, 11/11/22 11:56:00 EDT, Instructions Replace Required Details, Route to Pharmacy Electronically, [facility], Partial patrice... Start Date: 11/11/22 Status: Ordered docusate sodium 100 mg oral [...] Start Date: 04/22/22 Status: Ordered Furosemide = 80 mg, Daily, 0 Refills, Maintenance, 09/14/22 14:12:00 EST, Partial fill upon patient request ifthe prescription is for a schedule II opioid [...] 1 tablet = 25 mg, By Mouth, 4 times a day, PRN as needed for dizziness, for 30 days, # 120 tablet, 4 Refills, Physician Stop 02/09/23 15:50:00 EDT, 09/12/22 15:50:00 EST, [facility], 159, cm, 09/12/22 11:14:00 EST, Height, 57.1, kg, 07/11... Start Date: 09/12/22 Stop Date: 02/09/23 Status: Ordered Metoprolol Succinate ER 25 mg oral tablet, extended release TAKE ONE TABLET BY MOUTH TWICE A DAY WITH BREAKFAST AND DINNER Start Date: 08/26/22 Status: Ordered omeprazole 40 mg oral enteric coated capsule 1 capsule = 40 mg, By Mouth, Daily, PRN as needed, Maintenance, 05/16/22 11:22:00 EST, EC Capsule, ; Start Date: 05/16/22 Status: Ordered Orthotics See Instructions, # 1 each, Maintenance, Molded orthotics for bilateral feet. Diagnosis: Arthritis of feet with pain, 10/20/22 16:39:00 EDT, Supply Start Date: 10/20/22 Status: Ordered PredniSONE = 5 mg, By Mouth, Daily, 0 Refills, Maintenance, 07/29/22 11:14:00 EST, Partial fill upon patient request if the prescription is for a schedule II opioid drug. Start Date: 07/29/22 Status: Ordered ramelteon 8 mg oral tablet 1 tablet = 8 mg, By Mouth, Daily at bedtime, # 30 tablet, 0 Refills, Maintenance, 09/09/22 11:47:00EST, [facility], Partial fill upon patient request if the prescription is for a schedule II opioid drug., 160.02, cm, 09/09/22 11:02:00 E... Start Date: 09/09/22 Status: Ordered rosuvastatin 10 mg oral tablet [...] 13:50:25 EST Start Date: 08/24/17 Status: Ordered Theraworx Relief MCS topical foam See Instructions, USE ON BACK, # 1 Unknown, 0 Refills, Maintenance, 12/29/22 11:57:00 EDT, [facility], Partial fill upon patient request if the prescription is for a schedule II opioid drug., USE ON BACK, 158, cm, 12/29/22 10:56:00 EDT,... Start Date: 12/29/22 Status: Ordered traZODone 50 mg oral tablet [...] 1 mg oral tablet See Instructions, take 1-3 tablets By Mouth Daily as directed by the anticoagulation clinic, # 180 tablet, 2 Refills, Maintenance, 06/15/22 11:59:00 EST, [facility], Partial fill upon patient request if the prescription is for a schedul... Start Date: 06/15/22 Status: Ordered Problem List Condition Confirmation Course [...] Active MIS (generalized anxiety disorder) Confirmed Active Hematochezia Confirmed Active Heterozygous Factor [...] Confirmed Active Vertigo Confirmed Active 1left eye Social History Social History Type Response Smoking Status Never smoker; Tobacc o user in household: No entered on: 04/05/17 Sex Female Cardiology * Event Display: Non [facility] Cardiovascular Results Authored Date: * Event Display: Non [facility] Cardiovascular Results Authored Date: * Event Display: Non [facility] Cardiovascular Results Authored Date: EKG study * Event Display: EKG Authored Date: Laboratory * Event Display: Non [facility] Lab Results Authored Date: * Event Display: Non [facility] Lab Results Authored Date: * Event Display: Non [facility] Lab Results Authored Date: Hospital Progress note * Patti Lynch MD: SIGN Patti Lynch MD: SIGN, MODIFY Patti Lynch MD: MODIFY, MODIFY Patti Lynch MD: MODIFY, MODIFY Patti Lynch MD: MODIFY, PERFORM Patti Lynch MD: PERFORM, SIGN Patti Lynch MD: SIGN, VERIFY Patti Lynch MD: VERIFY Kiki Long: MODIFY, MODIFY Kiki Long: MODIFY, MODIFY Event Display: Progress Note Hospital Authored Date: [id number] Patient: CINDA MALIK Age: 72 years Sex: Female : 1945 Associated Diagnoses: None Author: Patti Lynch MD Interval History Overnight patient had no acute events. Patient still endorses coughing up dark blood clots, but does not exhibit any radha hemoptysis. Endorses pain over her right IV line. Review of Systems Review of Systems Constitutional: no complaints. Respiratory: nonproductive cough, pleuritic chest pain, shortness of breath, no wheezing. Cardiovascular: no peripheral edema. Gastrointestinal: constipation, no abdominal pain. HEENT: Head/Neck dizziness, Herpes labialis on the upper lip. Physical Examination Vital Signs Vitals : VITAL SIGNS SECTION 02/01/2018 8:14 EDT Temperature 98.1 DegF Temperature Route Oral Pulse Rate 76 bpm Respiratory Rate 20 br/min Systolic Blood Pressure 115 mm Hg Diastolic Blood Pressure 63 mm Hg Blood pressure sites Arm, right Mean Arterial Pressure 80 mm Hg Oxygen Saturation 99 % Mode of Delivery (Oxygen) Room air . Weight : Weight 01/27/2018 13:15 EDT Weight 60.6 kg . BMI : Body Mass Index 01/27/2018 13:15 EDT Body Mass Index 23.67 . General: NAD, resting comfortably in bed, AAOx4 CVS: RRR, S1S2, no m/r/g Resp: CTA b/l Abdomen: soft, ND, tenderness in the epigastric and umbilical region, +BS Extremities: no peripheral edema, bruising on the extremities guillermo LE, negative Jasmine's sign on the R and L Results Review General results Most recent results All : ALL RESULT SECTIONS 02/01/2018 6:36 EDT WBC 9.1 k/mm3 Hgb 11.9 Gm/dL Hct 36.1 % Platelet Count 212 k/mm3 RBC 3.73 m/mm3 L MCV 96.8 femtoliters MCH 31.9 pg MCHC 33.0 g/dL MPV 11.7 femtoliters Abs. Neut 6.6 k/mm3 Abs. Lymph 1.2 k/mm3 Abs. [place] 1.0 k/mm3 H Abs. Eo 0.1 k/mm3 Abs. Baso 0.1 k/mm3 Neut % 72.3 % Lymph % 13.5 % L [place] % 10.7 % H Eos % 1.2 % Baso % 0.9 % Nucleated RBC (Automated) 0.0 #/100 WBC'S RDW-SD 46.9 femtoliters Abs. NRBC 0.0 k/mm3 Imm Gran 1.4 % H Abs. Imm Gran 0.1 k/mm3 INR 1.1 Protime (PT) 10.9 seconds APTT 74.8 seconds H Sodium 139 mmol/L Potassium 4.3 mmol/L Chloride 102 mmol/L Bicarbonate Level 26 mmol/L Anion Gap 11 BUN 13 mg/dL Creatinine-Blood 0.7 mg/dL Estimated GFR, Non 85 ML/MIN/1.73 M2 Estimated GFR, 99 ML/MIN/1.73 M2 MICROBIOLOGY Culture/Event_id: Fungal Culture, Respiratory/[id number] Collect date: 01/27/18 13:50 Result Status: Preliminary Result Date: 02/01/18 07:34 SPECIMEN DESCRIPTION : BRONCH. WASH, LEFT LUNGL SPECIAL REQUESTS : NONE DIRECT EXAM : NO FUNGAL ELEMENTS OBSERVED CULTURE : NO FUNGI ISOLATED AFTER 5 DAYS Impression and Plan Ms. Malik is a 72 y/o female w/ PMHx of rheumatic fever, KANDY on CPAP, mitral valve prolapse, hx of adenocarcinoma of the lung s/p LLL resection and chemo/radiation with cisplatin & vinorelbine in 2008- 2009, pericardial effusion 2009, hx of factor V leiden mutation, anticardiolipin antibody, qualitative platelet disorder with easy bruisability, prior hx of DVT/PE on warfarin, pulmonary HTN and possible radiation pneumonitis who presented with one episode of radha hemoptysiss/p Bronchoscopy on 01/27. Hemoptysis s/p Bronchoscopy Hx Lung Adenocarinoma s/p LLL resection Possible Bronchitis Unlikely secondary to PE as patient had negative V/Q scan and was on anticoagulation and patient was on Warfarin with an INR of 1.5 upon admission on 01/26 Possibly due to spontaneous bleeding in the the setting of warfarin (however INR was low normal at 1.5 ) and likely friable tissue after radiation/chemo S/p bronchoscopy on 01/27: multitude of nonadherent clots in trachea, right and left bronchus that were successfully suctioned. LLL stump noted to be intact. YANIQUE bronchus with adherent clots at ostiumwith oozing upon suction attempt - not manipulated further Currently holding off on repeat bronchoscopy as an inpatient. Bronchoscopy gram stain on 01/31 shows 1+ polymorphic leukocytes and 1+ gram positive cocci but culture only showing mixed respiratory josie; will hold off on initiating new antibiotic treatment. Her Hb at presentation (01/26) was 14.0 > 11.9 today. Patient endorses on and off coughing of small clots. Will be monitoring for hemoptysis. Pulm is following, appreciate recs Plan: - Continue to monitor h/h - Monitor for hemoptysis - Continue Doxycycline, last day of treatment 02/02 to complete a 7 day course of antibiotics - Continue to follow bronchoscopy cultures (Afb, fungal, legionella) - f/u Cytology for bronchoscopy specimen - In the setting of restarting anti-coagulation, if massive bleed contact, reserve AC ansd contact IR and anesthesia for intubation/airway protection and embolization. - Guaifenesin/Codeine 15 ml Q 6 for cough. - Continue home advair and montelukast. - Pulm planning to do a repeat bronchoscopy in the outpatient setting in the next 2-3 weeks. - Possible repeat a CAT scan of the chest as an outpatient. Factor 5 Leiden Mutation Suspected DVT of B/L LE ruled out Hx of DVT/PE on warfarin-Currently held Patient endorsed R LE pain due to trauma on 01/25. Jasmine's negative on the RLE and LLE. US of the R LE was negative for DVT on01/30. US of the L LE was negative for DVT on 01/28. Patient had no episodes of hemoptysis today. Patient's current target INR is 1.5-2, currently subtherapeutic with INR 1.1 on 02/01 Patient's PTT is 74.8 on 02/01 Heme on board, recommend to continue holding warfarin; appreciate recs Patient endorses some itching over her IV line. No signs of erythema, rash or purulence noted. Plan: -Rechecking daily Hb, if acute drop < 7, transfuse 1 unit PRBc's and contact heme regarding d/cing the heparin gtt -Continue heparin gtt -Rechecking PTT at 2:00 pm on 02/01 -Continue to hold warfarin -encourage ambulation COPD Radiation pneumonitis Patient has been on prednisone at home for episodes of exacerbation Currently no evidence of exacerbation Plan: - Continue home inhalers - Continue home cetirizine and montelukast Chronic Medical Problems: HTN: continue home metoprolol Insomnia/anxiety: continue home diazepam PRN and trazodone Hypothyroidism: continue home levothyroxine DVT Prophylaxis: On Heparin gtt Diet: Regular Diet Code Status: Full Code Case discussed with Dr. Miller ? * Patti Lynch MD: PERFORM Event Display: Progress Note Hospital Authored Date: Discussed with Dr. Hogan and Dr. Jacobo in person regarding transitioning to warfarin today. Agree with resuming home dose of warfarin (which is 4 mg Max dose) today and bridging with heparin. * Nighat STARK, Julian: PERFORM Event Display: Progress Note Hospital Authored Date: Attending Attestation: I have seen and evaluated this patient. I have discussed the case and its management with the resident and agree with the findings and plan as documented in the resident???s note. Radiology * Event Display: Ultrasound Lower Extremity, Non- Authored Date: * Event Display: Ultrasound Lower Extremity, Non- Authored Date: * Event Display: CT Scan Chest, [facility]- Authored Date: * Event Display: [place] Nuclear Medicine, Non- Authored Date: * Event Display: CT Scan Chest, Non- Authored Date: * Event Display: Ultrasound Neck, Counts include 234 beds at the [facility] Authored Date: Patient Care team information Care Team Personnel Name: Val Wynne Position: [facility] [place] RN Member Role: Primary Care Nurse Name: Karne Pittman RN Position: [facility] RN Member Role: Primary Care Nurse Name: Shilpi Mattson Position: Reference Physician Member Role: Primary Care Nurse Address: Address: [address] [place] [address]- [place] Name: Toyin Doherty RN Position: [facility] RN Member Role: Primary Care Nurse Name: Eben Hernandez NP Position: [facility] Associate Professional Member Role: Lifetime Consulting Provider Address: Address: [address] [place] [address]- [place] Name: Alejandrina Turner RN Position: [facility] RN Member Role: Primary Care Nurse Name: Zoraida Felix RN Position: [facility] RN Member Role: Primary Care Nurse Name: Daphne Hooker RN Position: [facility] RN Member Role: Primary Care Nurse Name: Nasima Gonzalez RN Position: [facility] RN Loyda Member Role: Primary Care Nurse Name: Caitlyn Bowie MD Position: [facility] Physician - Primary Care Member Role: PCP Address: Address: [address] [place] [address]- [place] Name: Kiki Abdi RN Position: [facility] RN Member Role: Primary Care Nurse Name: Marry Reza Position: [facility] RN Member Role: Primary Care Nurse Name: Veronica Hurst MA Position: [facility] SALLY [place] Member Role: Lifetime Consulting Physician Name: Maddie Herrera RN Position: [facility] AMB Nurse Member Role: Primary Care Nurse Name: Raegan Baptiste RN Position: [facility] RN Member Role: Primary Care Nurse Name: Svitlana Marcum RN Position: [facility] AMB Nurse Member Role: Primary Care Nurse Name: She Pool Position: [facility] RN Member Role: Primary Care Nurse Name: Kaila Latham RN Position: [facility] RN Member Role: Primary Care Nurse Name: Julio C Bahena Position: [facility] RN Member Role: Primary Care Nurse Name: Nasima Heredia RN Position: [facility] RN Member Role: Primary Care Nurse Name: Katherine Nixon PharmD Position: [facility] Associate Professional Member Role: Lifetime Consulting Provider Address: Address: [address] [place] [address]- [place] Name: Daphne Barton RN Position: [facility] RN Member Role: Primary Care Nurse Name: Katherine Long RN Position: [facility] RN Member Role: Primary Care Nurse Name: Norma Serrano RN Position: [facility] RN Member Role: Primary Care Nurse Name: Seven Kelly RN Position: [facility] RN Member Role: Primary Care Nurse Name: Fani Perez RN Position: [facility] RN Member Role: Primary Care Nurse Name: Hattie Brewster RN Position: [facility] RN Member Role: Primary Care Nurse Name: Yudith Rothman RN Position: [facility] Onco RN Member Role: Primary Care Nurse Name: Kelly Hernandez RN Position: [facility] RN Member Role: Primary Care Nurse Name: Parris Zulugaa RN Position: [facility] RN Member Role: Primary Care Nurse Care Team Related Persons Name: MARK ZENAIDA Address: [place] [address] Name: TIA RIVERS Address: [place] [address] Name: JOHANN RETANA Address: [place] [address]
--- OUTSIDE RECORDS SUMMARY | 2023-10-14 16:29 | XMS_ITS | Continuity of Care Document ---
Author Organization [facility] Address [address] [place] [address]- Care Team Providers Care State Inspector Name Role Phone Azeb STARK, Caitlyn Thompson Primary Care Physician [phone] Encounter [facility] Date(s): 03/02/22 - 04/01/22 [facility] [address] [place], [place] [address] [[email or web address]] Allergies, Adverse Reactions, Alerts Substance Reaction Severity [...] prescription is for a schedule II opioid drMonalisa.. Start Date: 02/10/22 Status: Ordered cetirizine 10 [...] day, 0 Refills, Maintenance, 11/06/21 12:44:00 EDT, [place], Partialfill upon patient request if the prescription is for a schedule II opioid drug. Start Date: 11/06/21 Status: Ordered furosemide 20 mg oral tablet 1, tablet, By Mouth, Daily, PRN, # 90 tablet, Refills 2, NEEDED FOR LEG SWELLING, Route to Pharmacy Electronically, [facility], 160, cm, 12/23/21 8:08:00 EDT, Height, 59.2, kg, 11/18/21 9:04:00 EDT, Dry Weight Start Date: 12/23/21 Status: Ordered Lidocaine Viscous 2% solution 5 mL = 0.1 Gm, Topically, 3 times a day with meals, PRN for mouth sore pain, Swish and spit., # 20 mL, 0 Refills, Acute 03/08/23 13:25:00 EDT, 03/08/22 13:24:00 EDT, Solution, [facility], do not fill unless pt [...] Refills, Maintenance, 11/09/21 9:33:00 EDT, EC Capsule, [facility], Partial fill upon patient request if [...] Team Personnel Name: Caitlyn Bowie MD Address: [address] [place] [address]
--- OUTSIDE RECORDS SUMMARY | 2023-10-14 16:29 | XMS_ITS | Continuity of Care Document ---
Author Organization [facility] Address [address] [place] [address]- Care Team Providers Care Executive Coach Name Role Phone Caitlyn Bowie MD Primary Care Physician Encounter [facility] Date(s): 03/08/22 - 03/15/22 [facility] [address] [place] [address]- Attending Physician: Anish Neil MD Admitting Physician: Anish Neil MD Referring Physician: Caitlyn Bowie MD Allergies, Adverse Reactions, Alerts Substance Reaction Severity Status ciprofloxacin Active gentamicin Active erythromycin Active penicillin 1 Active ipratropium Active barium sulfate Active sulfa drugs Active iodinated radiocontrast dyes Active Voltaren Active Zithromax Active Flagyl Active Novocain Active Biaxin Active Gastrografin Active Levaquin Avocado Active Avelox Active Bee Stings Active Contrast Dye Active Mold Active Shrimp Active Avocado Active morphine Active vancomycin Active 1Allergy testing doen 09/26 was negative [...] prescription is for a schedule II opioid . Start Date: 02/10/22 Status: Ordered cetirizine 10 [...] day, 0 Refills, Maintenance, 11/06/21 12:44:00 EDT, [place], Partialfill upon patient request if the prescription is for a schedule II opioid drug. Start Date: 11/06/21 Status: Ordered furosemide 20 mg oral tablet 1, tablet, By Mouth, Daily, PRN, # 90 tablet, Refills 2, NEEDED FOR LEG SWELLING, Route to Pharmacy Electronically, [facility], 160, cm, 12/23/21 8:08:00 EDT, Height, 59.2, kg, 11/18/21 9:04:00 EDT, Dry Weight Start Date: 12/23/21 Status: Ordered Lidocaine Viscous 2% solution 5 mL = 0.1 Gm, Topically, 3 times a day with meals, PRN for mouth sore pain, Swish and spit., # 20 mL, 0 Refills, Acute 03/08/23 13:25:00 EDT, 03/08/22 13:24:00 EDT, Solution, [facility], do not fill unless pt [...] Refills, Maintenance, 11/09/21 9:33:00 EDT, EC Capsule, [facility], Partial fill upon patient [...] Team Personnel Name: Caitlyn Bowie MD Address: [address] [place] [address]
--- OUTSIDE RECORDS SUMMARY | 2023-10-14 16:29 | XMS_ITS | Continuity of Care Document ---
Author Organization [facility] Address [address] [place] [address]- Care Team Providers Care Cigarette Carton Sealer Name Role Phone Caitlyn Bowie MD Primary Care Physician [phone] Encounter [facility] Date(s): 12/14/22 - 01/13/23 [facility] [address] [place], [place] [address] Allergies, Adverse Reactions, Alerts Substance Reaction Severity [...] 09/03/20 R ecorded SARS-CoV-2 (COVID-19) mRNA-1273 vaccine 1/28/21 R ecorded Influenza Virus Vaccine (oldterm) 04/22/19 [...] 04/22/22 Status: Ordered Furosemide = 40 mg, Daily, 0 Refills, Maintenance, 09/14/22 14:12:00 EST, Partial fill upon patient request ifthe prescription is for a schedule II opioid drug. Start Date: 09/14/22 Status: Ordered Incruse Ellipta 62.5 mcg/inh inhalation powder 0 Refills, Maintenance, 09/14/22 14:00:00 EST, Partial fill upon patient request if [...] EST, ; Start Date: 05/16/22 Status: Ordered lidocaine 5% topical film 1 patch, Topically, Once, PRN Pain , Mild, remove patches after 12 hours, # 15 patch, 0 Refills, Soft Stop, 11/16/22 18:17:00 EDT, Patch, [facility], Partial fill upon patient request if the prescription is for a schedule II opioid drug.... Start Date: 11/16/22 Status: Ordered Lidoderm 5% film See Instructions, Topically Daily remove patches after 12 hours, # 30 patch, 0 Refills, Maintenance, 11/11/22 12:00:00 EDT, Partial fill upon patient request if the prescription is for a schedule II opioid drug. Start Date: 11/11/22 Status: Ordered meclizine 25 mg oral tablet [...] 0 Refills, Maintenance, 09/09/22 11:47:00EST, [facility], Partial fill [...] Refills, Maintenance, 12/29/22 11:57:00 EDT, [facility], Partial fill [...] household: No entered on: 04/05/17 Sex Female Patient Care team information Care Team Personnel Name: Val Wynne Position: [facility] Onco RN Member Role: Primary Care Nurse Name: Karen Pittman RN Position: [facility] RN Member Role: Primary Care Nurse Name: Shilpi Mattson Position: Reference Physician Member Role: Primary Care Nurse Address: Address: [address] [place] [address]- [place] Name: Toyin Doherty RN Position: [facility] RN Member Role: Primary Care Nurse Name: Eben Hernandez NP Position: [facility] Associate Professional Member Role: Lifetime Consulting Provider Address: Address: [address] [place] [address]- [place] Name: Alejandrina Turner RN Position: [facility] RN Member Role: Primary Care Nurse Name: Zoraida Felix RN Position: [facility] RN Member Role: Primary Care Nurse Name: Daphne Hooker RN Position: [facility] RN Member Role: Primary Care Nurse Name: Nasima Gonzalez RN Position: [facility] RN Supv Member Role: Primary Care Nurse Name: Caitlyn Bowie MD Position: [facility] Physician - Primary Care Member Role: PCP Address: Address: [address] [place] [phone]- [place] Name: Kiki Abdi RN Position: [facility] RN Member Role: Primary Care Nurse Name: Marry Reza Position: [facility] RN Member Role: Primary Care Nurse Name: Veronica Hurst MA Position: [facility] SALLY MA Member Role: Lifetime Consulting Physician Name: Maddie Herrera RN Position: [facility] AMB Nurse Member Role: Primary Care Nurse Name: Raegan Baptiste RN Position: [facility] RN Member Role: Primary Care Nurse Name: Svitlana Marcum RN Position: [facility] AMB Nurse Member Role: Primary Care Nurse Name: She Polo Position: [facility] RN Member Role: Primary Care Nurse Name: Kaila Latham RN Position: [facility] RN Member Role: Primary Care Nurse Name: Julio C Bahena Position: [facility] RN Member Role: Primary Care Nurse Name: Nasima Heredia RN Position: [facility] RN Member Role: Primary Care Nurse Name: Katherine Nixon PharmD Position: [facility] Associate Professional Member Role: Lifetime Consulting Provider Address: Address: [address] [place] [address]- [place] Name: Daphne Barton RN Position: [facility] RN Member Role: Primary Care Nurse Name: Katherine Long RN Position: [facility] RN Member Role: Primary Care Nurse Name: Norma Serrano RN Position: [facility] RN Member Role: Primary Care Nurse Name: Seven Kelly RN Position: [facility] RN Member Role: Primary Care Nurse Name: Fani Perez RN Position: [facility] RN Member Role: Primary Care Nurse Name: Hattie Brewster RN Position: [facility] RN Member Role: Primary Care Nurse Name: Yudith Rothman RN Position: [facility] Onco RN Member Role: Primary Care Nurse Name: Kelly Hernandez RN Position: [facility] RN Member Role: Primary Care Nurse Name: Parris Zuluaga RN Position: [facility] RN Member Role: Primary Care Nurse Care Team Related Persons Name: ZENAIDA FLORES Address: [place] [address] Name: TIA RIVERS Address: [place] [address] Name: JOHANN RETANA Address: [place] [address]
--- OUTSIDE RECORDS SUMMARY | 2023-10-14 16:29 | XMS_ITS | Continuity of Care Document ---
Author Organization [facility] Address [address] [place] [address]- Care Team Providers Care Medical Technologist Generalist Name Role Phone Caitlyn Bowie MD Primary Care Physician [phone] Encounter [facility] Date(s): 06/29/23 - 07/06/23 [facility] [address] [place], [place] [address] Attending Physician: Caitlyn Bowie MD Allergies, Adverse [...] clinic, # 180 tablet, 2 Refills, Maintenance, 02/23/23 8:10:00 EDT, [facility], Partial fill upon patient request if the prescription is for a schedule... Start Date: 02/23/23 Status: Ordered Problem List Condition Confirmation Course [...] Confirmed Active Vertigo Confirmed Active 1left eye Vital Signs Most recent to oldest [Reference Range]: 1 Height 159 cm (06/29/23 11:09 AM) Weight 59.9 kg (06/29/23 11:09 AM) Oxygen Saturation [94-100 %] 98 % (06/29/23 11:09 AM) Pulse Rate [55-90 bpm] 83 bpm (06/29/23 11:09 AM) Body Mass Index [18.5-24.99 kg/m2] 23.69 kg/m2 (06/29/23 11:09 AM) Blood Pressure [90-138/55-84 mm Hg] 122/ 78mm Hg (06/29/23 11:09 AM) Mode of Delivery (Oxygen) Room air (06/29/23 11:09 AM) Blood pressure sites Arm, left (06/29/23 11:09 AM) Social History Social History Type Response Smoking Status Never smoker; Tobacc o user in household: No entered on: 04/05/17 Sex Note * Yoly Newman: PERFORM, SIGN, VERIFY Event Display: Patient Education/Instruction Authored Date: [id number] [facility] *[facility] Clinical Summary Name CINDA WATSON Age 78 Years 1945 PCP Azeb STARK, Caitlyn Thompson PCP Visit Date 06/29/2023 10:55:00 Additional Instructions: Scheduled Appointments?? Future Appointments ?*[facility]Adult ?[address]??[place],??[place],??[address] ?Phone:??--?Fax:??-- ?Appt. Date:??06/30/2023?9:00 AM ?Scheduled Provider:??Fei Naqvi PHD Follow-Up Instructions ?? Diagnosis Medications: Please continue your medications until treatment is completed or stopped by your provider. Discuss any questions related to medications with your provider. Medications to Continue with No Changes These medications were not printed or sent to your pharmacy Albuterol (albuterol 0.083% inhalation solution) 3 Milliliter Inhalation every 6 hours as needed for wheezing. Next Dose: Albuterol (Ventolin HFA 108 mcg/inh inhalation aerosol with adapter) 2 puff(s) Inhalation every 6 hours as needed Wheezing/Shortness of Breath. Next Dose: Diazepam (diazepam 5 mg oral tablet) 1/2 tab 4 times per day; as needed anxiety & sleep. Refills: 1. Next Dose: Diazepam (diazepam 5 mg oral tablet) TAKE ONE-HALF TABLET BY MOUTH FOUR TIMES A DAY NEEDED FOR ANXIETY AND SLEEP. Refills: 5. Next Dose: Diazepam (diazepam 5 mg oral tablet) TAKE ONE-HALF TABLET BY MOUTH FOUR TIMES A DAY NEEDED FOR ANXIETY AND SLEEP. Refills: 5. Next Dose: Docusate (docusate sodium 100 mg oral capsule) 1 capsule Oral twice a day. Next Dose: Durable Medical Equipment (Orthotics) Molded orthotics for bilateral feet. Diagnosis: Arthritis of feet with pain. Refills: 0. Next Dose: elderberry (elderberry oral liquid) 15 Milliliter Oral Daily. Next Dose: EPINEPHrine (EPINEPHrine 0.3 mg injectable solution) 0.3 Milligram Intramuscular once as needed Anaphylactic Reaction. Next Dose: Ferrous Gluconate (ferrous gluconate 324 mg oral tablet) 1 tab(s) Oral Daily. WITH BREAKFAST. Next Dose: Fluticasone-Salmeterol (Advair HFA 230 mcg / 21 mcg) 2 puff(s) Inhalation twice a day. Next Dose: Furosemide 40 Milligram twice a day. Next Dose: Levothyroxine (levothyroxine 25 mcg (0.025 mg) oral capsule) 1 capsule Oral Daily. Monday through Monday. Next Dose: Levothyroxine (levothyroxine 50 mcg (0.05 mg) oral capsule) 1 capsule Oral Daily. Monday & Monday's. Next Dose: Metoprolol (Metoprolol Succinate ER 25 mg oral tablet, extended release) 3 tablets Oral twice a dayfor 30 Days. TAKE ONE TABLET BY MOUTH TWICE A DAY WITH BREAKFAST AND DINNER. Refills: 0. Next Dose: Montelukast (Singulair 10 mg oral tablet) 1 tab(s) Oral Daily in PM. Dr. Kelly. Next Dose: Multivitamin (B-Complex SR) 1 tab(s) Oral Daily. Next Dose: Omeprazole (omeprazole 40 mg oral enteric coated capsule) 1 capsule Oral Daily as needed. Next Dose: PredniSONE (predniSONE 5 mg oral tablet) 2.5 Milligram Oral every other day. Next Dose: Rosuvastatin (rosuvastatin 10 mg oral tablet) 1 tab(s) Oral Monday, Monday and Monday. Next Dose: Trazodone (traZODone 50 mg oral tablet) 2 tab(s) Oral Daily at Bedtime. Dr. Kelly. Refills: 0. Next Dose: Warfarin (warfarin 1 mg oral tablet) take 2-3 tablets By Mouth Daily as directed by the anticoagulation clinic. Refills: 2. Next Dose: Allergy Info:?? Avocado; Shrimp; Mold; Contrast Dye; Bee Stings; Avelox; Levaquin; Gastrografin; Biaxin; Novocain; Flagyl; Zithromax; Voltaren; iodinated radiocontrast dyes; sulfa drugs; barium sulfate; morphine; ipratropium; busPIRone; vancomycin; penicillin; erythromycin; clindamycin; gentamicin; ciprofloxacin Medications Given This Visit Future Orders ?Urine Culture? Order Date:06/29/23?- Complete on or after?06/29/23 Vital Signs Height 159 cm Weight 59.9 kg BMI 23.69 kg/m2 Blood Pressure 122 mm Hg/78 mm Hg Temperature Pulse Rate 83 bpm Respiratory Rate 02 Sat Mode of Delivery 98 %/Room air You can now view a summary of your hospital visit from the comfort of your home through a free online portal called [employer]. [employer] is a website that allows you to securely view your medical information including discharge summary, medications and follow-up visits. ??You can alsosend a secure electronic message to your doctor???s office to request appointments, renew medications or just ask a question. You can enroll at [email or web address] or register during your next office visit. Disclaimer:?? The information provided is of a general nature and is intended to be used in conjunction with the recommendations and advice of your health care practitioner. ??Every effort has been made to ensure that the information provided is accurate and complete at the time it is provided to you however, as your needs change, or, as new ??information becomes available, different or additional instructions may be required. If you have questions, please consult with your primary care provider or pharmacist, as appropriate. ??This information is not intended to serve as substitution for assessment and evaluation by a qualified health care provider. If you do not have a primary care provider, you may find a [facility] provider by calling [employer]] Link at [phone]. [facility], in keeping with [facility] guidance, no longer requires face masks for staff, patientsor visitors in most situations. Similar to time spent indoors at other locations, there is the chance that you were exposed to respiratory viruses during your time with us (such as flu or COVID-19).? If you develop symptoms concerning for a viral respiratory infection, please seek testing (and treatment if indicated) from your medical provider or home test kit. For information about the plan of care including goals and instructions for your diagnosis, please see the patient education orders section of this document. Patient Education Materials?? The content of this educational material or handout may have been modified, supplemented, or adapted from its original content and format to support your individualized medical care. Patient Care team information Care Team Personnel Name: Val Wynne Position: [facility] Onco RN Member Role: Primary Care Nurse Name: Karen Pittman RN Position: S RN Member Role: Primary Care Nurse Name: Shilpi Mattson Position: Reference Physician Member Role: Primary Care Nurse [facility]: [facility] [address] [facility] [address] [place] [address]- [place] Name: Toyin Doherty RN Position: [facility] RN Member Role: Primary Care Nurse Name: Eben Hernandez NP Position: [facility] Associate Professional Member Role: Lifetime Consulting Provider Address: Address: [address] [place] [address]- [place] Name: Alejandrina Turner RN Position: [facility] RN Member Role: Primary Care Nurse Name: Zoraida Felix RN Position: [facility] ED RN W/OE and Tasks Member Role: Primary Care Nurse Name: Daphne Hooker RN Position: [facility] RN Member Role: Primary Care Nurse Name: Nasima Gonzalez RN Position: [facility] RN Supv Member Role: Primary Care Nurse Name: Caitlyn Bowie MD Position: [facility] Physician - Primary Care Member Role: PCP Address: Address: [address] [place] [address]- [place] Name: Kiki Abdi RN Position: [facility] RN Member Role: Primary Care Nurse Name: Marry Reza Position: [facility] RN Member Role: Primary Care Nurse Name: Veronica Hurst MA Position: [facility] AMB MA Member Role: Lifetime Consulting Physician Name: Maddie Herrera RN Position: [facility] AMB Nurse Member Role: Primary Care Nurse Name: Yudith Herrera RN Position: [facility] Onco RN Member Role: Primary Care Nurse Name: Raegan Baptiste RN Position: [facility] RN Member Role: Primary Care Nurse Name: She Pool Position: [facility] RN Member Role: Primary Care Nurse Name: Kaila Latham RN Position: [facility] MADELINE RN W/OE and Tasks Member Role: Primary Care Nurse Name: Julio C Bahena Position: [facility] RN Member Role: Primary Care Nurse Name: Nasima Heredia RN Position: [facility] RN Member Role: Primary Care Nurse Name: Katherine Nixon PharmD Position: [facility] Associate Professional Member Role: Lifetime Consulting Provider Address: Address: [address] [place] [address]- Name: Daphne Barton RN Position: [facility] RN Member Role: Primary Care Nurse Name: Katherine Long RN Position: [facility] RN Member Role: Primary Care Nurse Name: Norma Serrano RN Position: [facility] RN Member Role: Primary Care Nurse Name: Seven Kelly RN Position: [facility] RN Member Role: Primary Care Nurse Name: Fani Perez RN Position: [facility] RN Member Role: Primary Care Nurse Name: Hattie Brewster RN Position: [facility] RN Member Role: Primary Care Nurse Name: Kelly Hernandez RN Position: [facility] RN Member Role: Primary Care Nurse Name: Pallavi Wylie LPN Position: [facility] RN Member Role: Primary Care Nurse Name: Parris Zuluaga RN Position: [facility] RN Member Role: Primary Care Nurse Care Team Related Persons Name: ZENAIDA FLORES Address: [place] [address] Name: TIA RIVERS Address: [place] [address] Name: JOHANN RETANA Address: [place] [address]
--- OUTSIDE RECORDS SUMMARY | 2023-10-14 16:29 | XMS_ITS | Continuity of Care Document ---
Author Organization [facility] Address [address] [place] [address]- Care Team Providers Care Peach Grower Name Role Phone Caitlyn Bowie MD Primary Care Physician [place] [facility] [place]s): 11/12/21 - 12/12/21 [facility] [address] [place] [id number] Attending Physician: Melissa Morrison Admitting Physician: Melissa [...] opioid drug. Start Date: 09/24/21 Status: Ordered cetirizine 10 mg oral tablet [...] day, 0 Refills, Maintenance, 11/06/21 12:44:00 EDT, [place], Partialfill upon patient request if the prescription is for a schedule II opioid drug. Start Date: 11/06/21 Status: Ordered furosemide 40 mg oral tablet See Instructions, take 1/2 tab daily, Refills 0, Maintenance, 11/18/21 10:35:00 EDT, Instructions Replace Required Details, Partial fill upon patient request if the prescription is for a schedule II opioid drug. Start Date: 11/18/21 Status: Ordered Iron Chews = 15 mg, By Mouth, Daily, 0 Refills, Maintenance, 11/18/21 10:34:00 EDT, Partial fill upon patient request if the prescription is for a schedule II opioid drug. Start Date: 11/18/21 Status: Ordered melatonin 3 mg oral tablet [...] Date: 07/20/17 Stop Date: 05/16/18 Status: Ordered Systane Hydration Preservative Free 1 drops, Eyes, Both, 4 times a day, 0 Refills, Maintenance, 11/06/21 12:44:00 EDT, Partial fill upon patient request if the prescription is for a schedule II opioid drug. Start Date: 11/06/21 Status: Ordered Toprol XL 25 mg oral [...] opioid drug. Start Date: 11/18/21 Status: Ordered Vitamin D3 oral tablet 5000 [...] both hands(Confirmed) Active Gastroesophageal reflux disease(Confirmed) Active Hematoma of [...]
--- OUTSIDE RECORDS SUMMARY | 2023-10-14 16:29 | XMS_ITS | Continuity of Care Document ---
Author Organization [facility] Address [address] [place] [address]- Care Team Providers Care Miner Name Role Phone Caitlyn Bowie MD Primary Care Physician [phone] Encounter [facility] Date(s): 04/22/22 - 04/29/22 [facility] [address] [place], [place] [address] Attending Physician: Caitlyn Bowie MD Allergies, Adverse Reactions, Alerts Substance Reaction Severity Status ciprofloxacin Active busPIRone Feeling of throat ti ghtness Headache Dizziness Active barium sulfate Active Voltaren Active Zithromax Active gentamicin Active erythromycin Active penicillin 1 Active vancomycin Active ipratropium Active morphine Active sulfa drugs Active iodinated radiocontrast dyes Active Gastrografin Active Levaquin Avocado Active Flagyl Active Novocain Active Biaxin Active Bee Stings Active Contrast Dye Active Avocado Active Avelox Active Mold Active Shrimp Active 1Allergy testing doen 09/26 was negative [...] opioid drug. Start Date: 03/22/22 Status: Ordered cefpodoxime 200 mg oral tablet 1 tablet = 200 mg, By Mouth, Every 12 hours, Complete a total of 14 days of antibiotics, as prescribed by your sub prior, 0 Refills, Maintenance, 04/14/22 10:18:00 EDT, Tablet, Partial fill upon patient request if the prescription is for a schedu... Start Date: 04/14/22 Stop Date: 04/28/22 Status: Ordered docusate sodium 100 mg oral [...] Ordered ferrous gluconate 324 mg oral tablet TAKE ONE TABLET BY MOUTH EVERY DAY WITH BREAKFAST Start Date: 04/22/22 Status: Ordered Flonase 50 mcg/inh nasal spray 2 sprays, Nares, Both, 2 times a day, PRN nasal congetsiton, 0 Refills, Maintenance, 11/06/21 12:44:00 EDT, [place], Partial fill upon patient request if the prescription is for a schedule II opioid drug. Start Date: 11/06/21 Status: Ordered furosemide 20 mg oral tablet 20 mg, 1, tablet, By Mouth, Daily, # 30 tablet, Refills 0, Maintenance, 04/13/22 20:02:00 EDT, Partial fill upon patient request if the prescription is for a schedule II opioid drug. Start Date: 04/13/22 Status: Ordered Lidocaine Viscous 2% solution 5 [...] Refills, Maintenance, 11/09/21 9:33:00 EDT, EC Capsule, [facility], Partial fill upon patient request if the prescription is for a schedule II opioid drug., 160, cm, 11/09/21 1:59:00 EDT... Start Date: 11/09/21 Status: Ordered predniSONE 5 mg oral tablet See Instructions, 1 tablet (5mg) By Mouth daily, until follow up with Dr. Kelly, and then likely switch to 1 tablet (5mg) every other day Start Date: 07/03/21 Status: Ordered Probiotic Formula [...] mg oral tablet See Instructions, PRN, Take 1/2 to 1 by mouth twice a day as needed for anxiety and sleep., # 30 tablet, Refills 3, Tot. Refills 3, Maintenance, as needed for anxiety, 04/22/22 15:14:00 EDT, Instructions Replace Required Details, Route to Pharmacy [place]... Start Date: 04/22/22 Status: Ordered Ventolin HFA 108 mcg/inh inhalation aerosol with adapter 2 puffs, Inhalation, Every 6 hours, PRN Wheezing/Shortness of Breath, # 18 Gm, 0 Refills, Maintenance, 01/26/18 16:34:30 EDT, Aerosol Start Date: 01/26/18 Status: Ordered warfarin 1 mg oral tablet See Instructions, Take 2 mg daily except Wednesdays . Take 3mg coumadin on Monday.s Get INR checked on 04/15 or 04/18 and then follow up with Coumadin clinic for dosea djustchayo ic, 0 Refills, Maintenance, 09/24/21 11:37:00 EDT, Partial fill u... Start Date: 09/24/21 Status: Ordered Xyzal 5 mg oral tablet 1 tablet = 5 mg, By Mouth, Daily in PM, allergies, # 30 tablet, 0 Refills, Maintenance, 04/22/22 15:12:00 EDT, Tablet, [facility], Partial fill upon patient request if the prescription is for a schedule II opioid drug., 1 tablet By Mouth... Start Date: 04/22/22 Status: Ordered Zinc = 50 mg, By Mouth, Daily, 0 Refills, Maintenance, 03/22/22 10:25:00 EDT, Partial fill upon patient request if the prescription is for a schedule II opioid drug. Start Date: 03/22/22 Status: Ordered Problem List Condition Confirmation Course [...] thromboembolism) Confirmed Active 1left eye 2lower extrem Vital Signs Most recent to oldest [Reference Range]: 1 Height 160 cm (04/22/22 2:08 PM) Weight 61.6 kg (04/22/22 2:08 PM) Oxygen Saturation [94-100 %] 96 % (04/22/22 2:08 PM) Pulse Rate [55-90 bpm] 81 bpm (04/22/22 2:08 PM) Body Mass Index [18.5-24.99 kg/m2] 24.06 kg/m2 (04/22/22 2:08 PM) Blood Pressure [90-138/55-84 mm Hg] 96/5 0mm Hg (04/22/22 2:08 PM) Temperature [96.8-100.4 DegF] 97.9 DegF (04/22/22 2:08 PM) Mode of Delivery (Oxygen) Room air (04/22/22 2:08 PM) Blood pressure sites Arm, right (04/22/22 2:08 PM) Temperature Route Temporal (04/22/22 2:08 PM) Weight Obtained Via Standing scale (04/22/22 2:08 PM) Social History Social History Type Response Smoking Status Never smoker; Tobacc o user in household: No entered on: 04/05/17 Sex Female Patient Care team information Personnel Name: Caitlyn Bowie MD Address: Address: [address] [place] [address]
--- OUTSIDE RECORDS SUMMARY | 2023-10-14 16:30 | XMS_ITS | Continuity of Care Document ---
Author Organization [facility] Address [address] [place] [address]- Care Team Providers Care Laboratory Cureman Name Role Phone Peewee STARK, Sharon Primary Care Physician Encounter [facility] [place] [place] Date(s): 11/27/19 - 03/12/20 [facility] [address] [place] [address] Discharge Disposition: A-D/C Home Attending Physician: Samira STARK(Hem/Onc), Christo Giles Admitting Physician: Samira STARK(Hem/Onc), Christo Giles Referring Physician: Shraon Vides MD Allergies, Adverse Reactions, Alerts Substance Reaction Severity Status ciprofloxacin Active gentamicin Active erythromycin Active morphine Active barium sulfate Active iodinated radiocontrast dyes Active Voltaren Active Zithromax Active Flagyl Active Novocain Active Gastrografin Active Levaquin Avocado Active Avelox Active Bee Stings Active penicillin 1 Active vancomycin Active sulfa drugs Active Biaxin Active Contrast Dye Active Mold Active Shrimp Active Avocado Active 1Allergy testing do09/26 was negative so unlikely she is allergic [...] By Mouth, Daily, Dr. primo Renee at [place], # 30 tablet, 0 Refills, Maintenance, 01/26/18 16:36:23 EDT, ER Tablet Start Date: 01/26/18 Status: Ordered metroNIDAZOLE 500 mg oral tablet 1 tablet = 500 mg, By Mouth, Every 8 hours, may take with food to minimize abdominal discomfort, # 18 tablet, 0 Refills, Maintenance, 09/06/19 14:42:00 EST, Tablet, [facility] 3, 160, cm,09/06/19 7:35:00 EST, Height, [...]
--- OUTSIDE RECORDS SUMMARY | 2023-10-14 16:30 | XMS_ITS | Continuity of Care Document ---
Author Organization [facility] Address [address] [place] [address]- Care Team Providers Care Manager [place] Name Role Phone Caitlyn Bowie MD Primary Care Physician Encounter [facility] Date(s): 02/24/21 - 03/26/21 [facility] [address] [place] [id number] Allergies, Adverse Reactions, Alerts Substance Reaction [...] and Recorded Vaccine Date Status Refusal Reason SARS-CoV-2 (COVID-19) mRNA-1273 vaccine 08/06/20 R ecorded [...] EDT, Solution Start Date: 01/26/18 Status: Ordered codeine-guaifenesin 7.5 mg-225 mg/5 mL oral liquid 2.5 mL, By Mouth, Every 6 hours, PRN for cough, # 120 mL, 0 Refills, Maintenance, 03/01/21 12:18:00EDT, Liquid, [facility], Partial fill upon patient request if the prescription isfor a schedule II opioid drug., 2.5 mL By Mouth Every 6... Start Date: 03/01/21 Status: Ordered Complete Blood Count with Differential, Basic Metabolic panel in 1-2 weeks from 03/01/2021 Complete Blood Count with Differential, Basic Metabolic panel in 1-2 weeks from 03/01/2021, See Instructions, # 1 each, Refills 0, Tot. Refills 0, Maintenance, Complete Blood Count with Differential, Basic Metabolic panel in 1-2 weeks from 03/01/2021, 0... Start Date: 03/01/21 Status: Ordered diazepam 5 mg oral tablet See Instructions, PRN, TAKE 1/2 TO 1 TAB 5 mg By Mouth Daily at bedtime, # 30 tablet, Refills 3, Tot. Refills 3, Maintenance, as needed for sleep, 02/15/21 12:03:00 EDT, Instructions Replace RequiredDetails, Do Not Route Start Date: 02/15/21 Status: Ordered Dulcolax Stool Softener = 100 mg, By Mouth, 2 times a day, 0 Refills, Maintenance, 08/24/17 13:50:07 Start Date: 08/24/17 Status: Ordered EpiPen 2-Daniel = 0.3 mg, Intramuscular, Once, PRN anaphylaxis, 0 Refills, Maintenance, 03/01/18 15:32:26 EDT Start Date: 03/01/18 Status: Ordered magnesium oxide 500 mg oral [...] 1 tablet = 50 mg, By Mouth, 2 times a day, Dr. primo Renee at [place], per pt, # 30 tablet, 0 Refills, Maintenance, 01/26/18 16:36:23 EDT, ER Tablet Start Date: 01/26/18 Status: Ordered omeprazole 40 mg oral enteric coated capsule 1 capsule = 40 mg, By Mouth, Daily, # 30 capsule, 0 Refills, Maintenance, 01/26/18 16:34:25 EDT, ECCapsule Start Date: 01/26/18 Status: Ordered pravastatin 10 mg oral tablet See Instructions, 1 tablet By Mouth THREE TIMES PER WEEK, 0 Refills, Maintenance, 02/15/21 12:01:00EDT, Tablet, Partial fill upon patient request if the prescription is for a schedule II opioid drug. Start Date: 02/15/21 Status: Ordered Singulair 10 mg oral tablet [...] Start Date: 01/26/18 Status: Ordered Vitamin C By Mouth, Daily, 500MG PO DAILY, 0 Refills, Maintenance, 02/15/21 12:09:00 EDT, Partial fill upon patient request if the prescription is for a schedule II opioid drug. Start Date: 02/15/21 Status: Ordered Vitamin D3 oral tablet 5000 IU, By Mouth, Daily, 0 Refills, Maintenance, 03/01/18 15:31:44 EDT Start Date: 03/01/18 Status: Ordered warfarin 1 mg oral tablet See Instructions, Take 1-4 tablets daily as directed by the coumadin clinic, # 360 tablet, 1 Refills, Maintenance, 02/24/21 16:22:00 EDT, Tablet, [facility], 134.6, cm, 02/24/21 9:04:00 EDT, Height, 65, kg, 02/02/21 18:56:00 EDT, Dry Weight Start Date: 02/24/21 Status: Ordered ZyrTEC 10 mg oral tablet 1 tablet = 10 mg, By Mouth, Daily, # 30 tablet, 0 Refills, Maintenance, 08/24/17 13:47:49, Tablet Start Date: 08/24/17 Status: Ordered Problem List Condition Effective Dates Status Health Status Inform ant Situational anxiety(Confirmed) Active Antiphospholipid syndrome(Confirmed) Active CHF - Congestive heart failure(Confirmed) Active 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) Active Diverticulitis(Confirmed) Active Gastroesophageal reflux disease(Confirmed) Active Heterozygous Factor V Leiden mutation(Confirmed) Active Hyperlipidemia(Confirmed) Active Hypothyroidism(Confirmed) Active Respiratory failure with hypoxia(Confirmed) Active Hypoxia(Confirmed) Active Insomnia(Confirmed) Active Mitral valve prolapse(Confirmed) Active Optic neuritis(Confirmed) 1 Active Osteoporosis(Confirmed) Active Platelet function defect(Confirmed) Active Radiation pneumonitis(Confirmed) Active Sleep apnea, CPAP(Confirmed) Active Superficial thrombophlebitis(Confirmed) 2 Active SVT (supraventricular tachycardia)(Confirmed) Active 1left eye 2lower extrem Social History Social History Type Response Smoking Status Never smoker; Tobacc o user in household: No entered on: 04/05/17 Sex
--- OUTSIDE RECORDS SUMMARY | 2023-10-14 16:30 | XMS_ITS | Continuity of Care Document ---
Author Organization [facility] Address [address] [place] [address]- Care Team Providers Care Air Conditioning Equipment Mechanic Name Role Phone Caitlyn Bowie MD Primary Care Physician Encounter [facility] Date(s): 06/15/23 - 07/15/23 [facility] [address] [place], [place] [address] Allergies, Adverse Reactions, Alerts Substance Reaction Severity Status ciprofloxacin Active gentamicin Active busPIRone Feeling of throat ti ghtness Headache Dizziness Active morphine Active barium sulfate Active Zithromax Active Flagyl Active clindamycin throat tightening Active erythromycin Active penicillin 1 Active vancomycin Active ipratropium Active sulfa drugs Active iodinated radiocontrast dyes Active Voltaren Active Biaxin Active Novocain Active Gastrografin Active Bee Stings Active Contrast Dye Active Avocado Active Levaquin Avocado Active Avelox Active Mold Active Shrimp [...] Care Team Personnel Name: Val Wynne Position: [facility] Onco RN Member Role: Primary Care Nurse Name: Karen Pittman RN Position: [facility] RN Member Role: Primary Care Nurse Name: Shilpi Mattson Position: Reference Physician Member Role: Primary Care Nurse Address: Address: [address] [place] [address] Name: Toyin Doherty RN Position: [facility] RN Member Role: Primary Care Nurse Name: Eben Hernandez NP Position: [facility] Associate Professional Member Role: Lifetime Consulting Provider Address: Address: [address] [place] [address] Name: Alejandrina Turner RN Position: [facility] RN Member Role: Primary Care Nurse Name: Zoraida Felix RN Position: [facility] ED RN W/OE and Tasks Member Role: Primary Care Nurse Name: Daphne Hooker RN Position: [facility] RN Member Role: Primary Care Nurse Name: Nasima Gonzalez RN Position: [facility] RN Supv Member Role: Primary Care Nurse Name: Caitlyn Bowie MD Position: [facility] Physician - Primary Care Member Role: PCP Address: Address: [address] [place] [address]- [place] Name: Kiki Abdi RN Position: [facility] RN Member Role: Primary Care Nurse Name: Marry Reza Position: S RN Member Role: Primary Care Nurse Name: Veronica Hurst [place] Position: [facility] AMB [place] Member Role: Lifetime Consulting Physician Name: Maddie Herrera RN Position: [facility] AMB Nurse Member Role: Primary Care Nurse Name: Yudith Herrera RN Position: [facility] Onco RN Member Role: Primary Care Nurse Name: Raegan Baptiste RN Position: [facility] RN Member Role: Primary Care Nurse Name: She Pool Position: S RN Member Role: Primary Care Nurse Name: Kaila Latham RN Position: [facility] RN Member Role: Primary Care Nurse Name: Julio C Bahena Position: S RN Member Role: Primary Care Nurse Name: Nasima Heredia RN Position: [facility] RN Member Role: Primary Care Nurse Name: Katherine Nixon PharmD Position: [facility] Associate Professional Member Role: Lifetime Consulting Provider Address: Address: [address] [place] [address]- [place] Name: Daphne Barton RN Position: [facility] RN Member Role: Primary Care Nurse Name: Katherine Long RN Position: [facility] RN Member Role: Primary Care Nurse Name: Norma Serrano RN Position: [facility] RN Member Role: Primary Care Nurse Name: Fani Perez RN Position: S RN Member Role: Primary Care Nurse Name: Hattie Brewster RN Position: [facility] RN Member Role: Primary Care Nurse Name: Kelly Hernandez RN Position: S RN Member Role: Primary Care Nurse Name: Pallavi Wylie LPN Position: [facility] RN Member Role: Primary Care Nurse Name: Parris Zuluaga RN Position: [facility] RN Member Role: Primary Care Nurse Care Team Related Persons Name: ZENAIDA FLORES Address: [place], [place] Name: TIA RIVERS Address: [place] [address] Name: JOHANN RETANA Address: [place], [place]
--- OUTSIDE RECORDS SUMMARY | 2023-10-14 16:30 | XMS_ITS | Continuity of Care Document ---
Author Organization [facility] Address [address] [place] [address]- Care Team Providers Care International Broadcast Music Librarian Name Role Phone Caitlyn Bowie MD Primary Care Physician [phone] Encounter [facility] Date(s): 08/05/22 - 09/04/22 [facility] [address] [place], [place] [address] Allergies, Adverse Reactions, Alerts Substance Reaction [...] Tot. Refills 1, Maintenance, anxiety & sleep, 08/26/22 11:26:00 EST, Instructions Replace Required Details, Route to Pharmacy Electronically, [facility], Partial patrice... Start Date: 08/26/22 Status: Ordered docusate sodium 100 mg oral [...] WITH BREAKFAST Start Date: 04/22/22 Status: Ordered levothyroxine 25 mcg (0.025 mg) [...] 1:23:00 EDT... Start Date: 09/30/21 Status: Ordered Metoprolol Succinate ER 25 mg oral tablet, extended release TAKE ONE TABLET BY MOUTH TWICE A DAY WITH BREAKFAST AND DINNER Start Date: 08/26/22 Status: Ordered omeprazole 40 mg oral enteric coated capsule 1 capsule = 40 mg, By Mouth, Daily, PRN as needed, Maintenance, 05/16/22 11:22:00 EST, EC Capsule, ; Start Date: 05/16/22 Status: Ordered PredniSONE = 5 mg, By Mouth, Daily, 0 Refills, Maintenance, 07/29/22 11:14:00 EST, Partial fill upon patient request if the prescription is for a schedule II opioid drug. 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 Confirmed Active Superficial thrombophlebitis 2 Confirmed Active SVT (supraventricular tachycardia) Confirmed Active Swelling of right lower extremity Confirmed Active VTE (venous thromboembolism) Confirmed Active 1left eye 2lower extrem Social History [...] Member Role: Primary Care Nurse Address: Address: [address] [place] [address] [address] [place] [address]- [place] Name: Toyin Doherty RN Position: [facility] RN Member Role: Primary Care Nurse Name: Eben Hernandez NP Position: [facility] Associate Professional Member Role: Lifetime Consulting Provider Address: Address: [address] [place] [address]- Name: Alejandrina Turner RN Position: [facility] RN Member Role: Primary Care Nurse Name: Zoraida Felix RN Position: [facility] RN Member Role: Primary Care Nurse Name: Daphne Hooker RN Position: [facility] RN Member Role: Primary Care Nurse Name: Nasiam Gonzalez RN Position: [facility] RN Supv Member Role: Primary Care Nurse Name: Caitlyn Bowie MD Position: [facility] Primary Care Physician Member Role: PCP Address: Address: [address] [place] [address]- Name: Sheeba García Position: [facility] RN Member Role: Primary Care Nurse Name: Kiki Abdi RN Position: [facility] RN Member Role: Primary Care Nurse Name: Marry Reza Position: [facility] RN Member Role: Primary Care Nurse Name: Veronica Hurst [place] Position: [facility] PCO RN Member Role: Lifetime Consulting Physician Name: Maddie Herrera RN Position: [facility] RN Member Role: Primary Care Nurse Name: Raegan Baptiste RN Position: [facility] RN Member Role: Primary Care Nurse Name: Svitlana Marcum RN Position: [facility] AMB Nurse Member Role: Primary Care Nurse Name: She Pool Position: [facility] RN Member Role: Primary Care Nurse Name: Kaila Latham RN Position: [facility] RN Member Role: Primary Care Nurse Name: Julio C Bahena Position: [facility] RN Member Role: Primary Care Nurse Name: Nasima Heredia RN Position: [facility] RN Member Role: Primary Care Nurse Name: Katherine Nixon PharmD Position: [facility] Associate Professional Member Role: Lifetime Consulting Provider Address: Address: [address] [place] [address]- [place] Name: Daphne Barton RN Position: [facility] RN Member Role: Primary Care Nurse Name: Katherine Long RN Position: [facility] RN Member Role: Primary Care Nurse Name: Norma Serrano RN Position: [facility] RN Member Role: Primary Care Nurse Name: Seven Kelly RN Position: [facility] RN Member Role: Primary Care Nurse Name: Fani Perez RN Position: [facility] RN Member Role: Primary Care Nurse Name: Hattie Brewster RN Position: [facility] RN Member Role: Primary Care Nurse Name: Yudith Rothman RN Position: [facility] Onco RN Member Role: Primary Care Nurse Name: Kelly Hernandez RN Position: [facility] RN Member Role: Primary Care Nurse Name: Parris Zuluaga RN Position: [facility] RN Member Role: Primary Care Nurse Care Team Related Persons Name: ZENAIDA FLORES Address: [place] [address] Name: TIA RIVERS Address: [address] [address] Name: JOHANN RETANA Address: [place] [address]
--- OUTSIDE RECORDS SUMMARY | 2023-10-14 16:30 | XMS_ITS | Continuity of Care Document ---
Author Organization [facility] Address [address] [place] [address]- Care Team Providers Care Web Marketing Analyst Name Role Phone Caitlyn Bowie MD Primary Care Physician [phone] [place] [facility] [place] 04/15/22 - 06/05/22 [facility] [address] [place] [address]- Attending Physician: Logan Stinson MD Admitting Physician: Logan Stinson MD Allergies, Adverse Reactions, Alerts Substance Reaction [...] ; Start Date: 07/03/21 Status: Ordered doxycycline hyclate 100 mg oral capsule 1 capsule = 100 mg, By Mouth, 2 times a day, for 5 days, # 10 capsule, 0 Refills, Acute 06/08/22 16:50:00 EST, 06/03/22 16:50:00 EST, Capsule, [facility], Partial fill upon patient request if the prescription is for a schedule II opioid... Start Date: 06/03/22 Stop Date: 06/08/22 Status: Ordered elderberry oral liquid 15 mL, [...] 11:28:00 EST Start Date: 05/16/22 Status: Ordered lanolin-mineral oil topical lotion See Instructions, USE TWICE DAILY, # 1 Unknown, 0 Refills, Maintenance, 05/19/22 11:45:00 EST, [facility], Partial fill upon patient request if the prescription is for a schedule IIopioid drug., USE TWICE DAILY, 161, cm, 05/19/22 11:02:... Start Date: 05/19/22 Status: Ordered levothyroxine 25 mcg (0.025 mg) [...] EDT, ; Start Date: 09/24/21 Status: Ordered trazodone 50 [...] Care Team Personnel Name: Val Wynne Position: [facility] Onco RN Member Role: Primary Care Nurse Name: Karen Pittman RN Position: S RN Member Role: Primary Care Nurse Name: Shilpi Mattson Position: Reference Physician Member Role: Primary Care Nurse Address: Address: [address] [place] [address] [address] [place] [address]- Name: Toyin Doherty RN Position: S RN Member Role: Primary Care Nurse Name: Eben Hernandez NP Position: S Associate Professional Member Role: Lifetime Consulting Provider Address: Address: [address] [place] [address]- Name: Alejandrina Turner RN Position: S RN Member Role: Primary Care Nurse Name: Zoraida Felix RN Position: [facility] RN Member Role: Primary Care Nurse Name: Daphne Hooker RN Position: [facility] RN Member Role: Primary Care Nurse Name: Nasima Gonzalez RN Position: [facility] RN Supv Member Role: Primary Care Nurse Name: Caitlyn Bowie MD Position: [facility] Primary Care Physician Member Role: PCP Address: Address: [address] [place] [address] - Name: Sheeba García Position: [facility] RN Member Role: Primary Care Nurse Name: Kiki Abdi RN Position: [facility] RN Member Role: Primary Care Nurse Name: Marry Reza Position: [facility] RN Member Role: Primary Care Nurse Name: Veronica Hurst [place] Position: [facility] PCO RN Member Role: Lifetime Consulting Physician Name: Maddie Herrera RN Position: [facility] RN Member Role: Primary Care Nurse Name: Raegan Baptiste RN Position: [facility] RN Member Role: Primary Care Nurse Name: Svitlana Marcum RN Position: [facility] AMB Nurse Member Role: Primary Care Nurse Name: She Pool Position: [facility] RN Member Role: Primary Care Nurse Name: Kaila Latham RN Position: [facility] ED RN W/OE and Tasks Member Role: Primary Care Nurse Name: Julio C Bahena Position: [facility] RN Member Role: Primary Care Nurse Name: Nasima Heredia RN Position: [facility] RN Member Role: Primary Care Nurse Name: Katherine Nixon PharmD Position: [facility] Associate Professional Member Role: Lifetime Consulting Provider Address: Address: [address] [place] [address] - Name: Daphne Barton RN Position: [facility] RN Member Role: Primary Care Nurse Name: Katherine Long RN Position: [facility] RN Member Role: Primary Care Nurse Name: Norma Serrano RN Position: [facility] RN Member Role: Primary Care Nurse Name: Aurea Kelly RN Position: [facility] RN Member Role: Primary Care Nurse Name: Seven Kelly RN Position: [facility] RN Member Role: Primary Care Nurse Name: Fani Perez RN Position: [facility] RN Member Role: Primary Care Nurse Name: Emely Her Position: [facility] RN Member Role: Primary Care Nurse Name: Yudith Rothman RN Position: S RN Member Role: Primary Care Nurse Name: Parris Zuluaga RN Position: S RN Member Role: Primary Care Nurse Care Team Related Persons Name: ZENAIDA FLORES Address: [address] [address] Name: TIA RIVERS Address: [address] [address] Name: JOHANN RETANA Address: [place] [address]
--- OUTSIDE RECORDS SUMMARY | 2023-10-14 16:30 | XMS_ITS | Continuity of Care Document ---
Author Organization [facility] Address [address] [place] [address]- Care Team Providers Care Bilingual Call Center Representative Name Role Phone Caitlyn Bowie MD Primary Care Physician Encounter [facility] Date(s): 05/07/21 - 06/06/21 [facility] [address] [place] [address]- Allergies, Adverse Reactions, Alerts Substance Reaction Severity [...]
--- OUTSIDE RECORDS SUMMARY | 2023-10-14 16:30 | XMS_ITS | Continuity of Care Document ---
Author Organization [facility] Address [address] [place] [address]- Care Team Providers Care Project Planner Name Role Phone Azeb STARK, Caitlyn Thompson Primary Care Physician [phone] Encounter [facility] Date(s): 07/22/22 - 08/21/22 [facility] [address] [place] [address]- Allergies, Adverse Reactions, Alerts Substance Reaction Severity Status ciprofloxacin Active ipratropium Active barium sulfate Active sulfa drugs Active iodinated radiocontrast dyes Active Voltaren Active gentamicin Active erythromycin Active penicillin 1 Active vancomycin Active busPIRone Feeling of throat ti ghtness Headache Dizziness Active morphine Active Novocain Active Gastrografin Active Levaquin Avocado Active Zithromax Active Flagyl Active Biaxin Active Bee Stings Active Contrast [...] Mouth, 2 times a day, PRN, # 10 tablet, Refills 0, Tot. Refills 0, Maintenance, anxiety & sleep, 08/14/22 17:00:00 EST, Print Requisition, Partial fill upon patient request if the prescription is for a schedule II opioid drug. Start Date: 08/14/22 Status: Ordered docusate sodium 100 mg oral capsule 100 mg, 1, capsule, By Mouth, 2 times a day, Refills 0, Maintenance, 07/03/21 12:28:00 EST, ; Start Date: 07/03/21 Status: Ordered elderberry oral liquid 15 mL, By Mouth, Daily, 0 Refills, Maintenance, 03/22/22 10:25:00 EDT, ; Start Date: 03/22/22 Status: Ordered Enoxaparin = 90 mg, Subcutaneous Injection, Daily, STOP ONCE INR IS 1.5, 0 Refills, Maintenance, 08/15/22 17:00:00 EST, Injection, Partial fill upon patient request if the prescription is for a schedule II opioid drug. Start Date: 08/15/22 Status: Ordered EPINEPHrine 0.3 mg injectable solution [...] 1:23:00 EDT... Start Date: 09/30/21 Status: Ordered metoprolol succinate 100 mg oral capsule, extended release 1 capsule = 100 mg, By Mouth, Daily, # 90 capsule, 0 Refills, Maintenance, 08/14/22 15:54:00 EST, ER Capsule, Partial fill upon patient request if the prescription is for a schedule II opioid drug. Start Date: 08/14/22 Status: Ordered omeprazole 40 mg oral enteric [...] Status: Ordered rosuvastatin 10 mg oral tablet 2 tablet = 20 mg, By Mouth, Every Monday, Monday and [...] Care team information Care Team Personnel Name: Lauren Wynnericia Position: [facility] Onco RN Member Role: Primary Care Nurse Name: Karen Pittman RN Position: [facility] RN Member Role: Primary Care Nurse Name: Shilpi Mattson Position: Reference Physician Member Role: Primary Care Nurse Address: Address: [address] [place] [address] [address] [place] [address]- [place] Name: Toyin Doherty RN Position: [facility] RN Member Role: Primary Care Nurse Name: Eben Hernandez NP Position: [facility] Associate Professional Member Role: Lifetime Consulting Provider Address: Address: [address] [place] [address]- Name: Alejandrina Turner RN Position: [facility] RN Member Role: Primary Care Nurse Name: Zoraida Felix RN Position: [facility] RN Member Role: Primary Care Nurse Name: Daphne Hooker RN Position: [facility] RN Member Role: Primary Care Nurse Name: Nasima Gonzalez RN Position: [facility] RN Supv Member Role: Primary Care Nurse Name: Caitlyn Bowie MD Position: [facility] Primary Care Physician Member Role: PCP Address: Address: [address] [place] [address]- Name: Sheeba García Position: [facility] RN Member Role: Primary Care Nurse Name: Kiki Abdi RN Position: [facility] RN Member Role: Primary Care Nurse Name: Marry Reza Position: [facility] RN Member Role: Primary Care Nurse Name: Veronica Hurst [place] Position: [facility] PCO RN Member Role: Lifetime Consulting Physician Name: Madide Herrera RN Position: [facility] RN Member Role: Primary Care Nurse Name: Raegan Baptiste RN Position: [facility] RN Member Role: Primary Care Nurse Name: Svitlana Marcum RN Position: [facility] SALLY Nurse Member Role: Primary Care Nurse Name: She Pool Position: [facility] RN Member Role: Primary Care Nurse Name: Kaila Latham RN Position: [facility] RN Member Role: Primary Care Nurse Name: Julio C Bahena Position: [facility] RN Member Role: Primary Care Nurse Name: Nasima Heredia RN Position: [facility] RN Member Role: Primary Care Nurse Name: Katherine Nixon PharmD Position: [facility] Associate Professional Member Role: Lifetime Consulting Provider Address: Address: [address] [place] [id number] Name: Daphne Barton RN Position: [facility] RN Member Role: Primary Care Nurse Name: Katherine Long RN Position: [facility] RN Member Role: Primary Care Nurse Name: Norma Serrano RN Position: [facility] RN Member Role: Primary Care Nurse Name: Seven Kelly RN Position: [facility] RN Member Role: Primary Care Nurse Name: Fani Perez RN Position: [facility] RN Member Role: Primary Care Nurse Name: Hattie Brewster RN Position: [facility] RN Member Role: Primary Care Nurse Name: Yudith Rothman RN Position: [facility] RN Member Role: Primary Care Nurse Name: Kelly Hernandez RN Position: [facility] RN Member Role: Primary Care Nurse Name: Parris Zuluaga RN Position: [facility] RN Member Role: Primary Care Nurse Care Team Related Persons Name: MARKZENAIDA ADAIR Address: [place] [address] Name: TIA RIVERS Address: [address] [address] Name: JOHANN RETANA Address: [place] [address]
--- OUTSIDE RECORDS SUMMARY | 2023-10-14 16:30 | XMS_ITS | Continuity of Care Document ---
Author Organization [facility] Address [address] [address]- Care Team Providers Care Administrative Support Manager Name Role Phone Brennan Burnett MD Primary Care Physician [phone] [place] [facility] [place](s): 09/18/20 - 10/18/20 [facility] [address] [place] [id number] Allergies, Adverse Reactions, Alerts Substance [...] By Mouth, Daily, Dr. primo Renee at [place], # 30 tablet, 0 Refills, Maintenance, 01/26/18 [...]
--- OUTSIDE RECORDS SUMMARY | 2023-10-14 16:30 | XMS_ITS | Continuity of Care Document ---
Author Organization [facility] Address [address] [place] [address]- Care Team Providers Care Oil Change Technician Name Role Phone Caitlyn Bowie MD Primary Care Physician [phone] [place] [facility] [place] 04[place]27[place]21 - 05/27/21 [facility] [address] [place] [address]- Attending Physician: Admtr, [id number] Admitting Physician: Admtr, Ar8 Referring Physician: Admtr, Ar8 Allergies, Adverse Reactions, Alerts Substance Reaction Severity Status ciprofloxacin Active gentamicin Active barium sulfate Active Voltaren Active Biaxin Active erythromycin Active penicillin 1 Active vancomycin Active ipratropium Active morphine Active sulfa drugs Active iodinated radiocontrast dyes Active Zithromax Active Flagyl Active Novocain Active Gastrografin Active Levaquin Avocado Active Bee Stings Active Contrast Dye Active [...]
--- OUTSIDE RECORDS SUMMARY | 2023-10-14 16:31 | XMS_ITS | Continuity of Care Document ---
Author Organization [facility] Address [address] [place] [address]- Care Team Providers Care Real Time Operator Name Role Phone Caitlyn Bowie MD Primary Care Physician [phone] Encounter [facility] Date(s): 10/05/22 - 11/04/22 [facility] [address] [place], [place] [address] Allergies, Adverse Reactions, Alerts Substance Reaction Severity Status ciprofloxacin Active barium sulfate Active iodinated radiocontrast dyes Active gentamicin Active erythromycin Active penicillin 1 Active vancomycin Active busPIRone Feeling of throat ti ghtness Headache Dizziness Active ipratropium Active morphine Active sulfa drugs Active Gastrografin Active Levaquin Avocado Active Voltaren Active Zithromax Active Flagyl Active [...] Start Date: 04/22/22 Status: Ordered Furosemide = 20 mg, Daily, 0 Refills, Maintenance, 09/14/22 14:12:00 [...] disease) from second hand smoke Confirmed Active Constipation Confirmed Active Coronary artery [...] Care Team Personnel Name: Val Wynne Position: [facility] Onco RN Member Role: Primary Care Nurse Name: Karen Pittman RN Position: S RN Member Role: Primary Care Nurse Name: Shilpi Mattson Position: Reference Physician Member Role: Primary Care Nurse Address: Address: [address] [place] [address] [address] [place] [address]- [place] Name: Toyin Doherty RN Position: [facility] RN Member Role: Primary Care Nurse Name: Eben Hernandez NP Position: [facility] Associate Professional Member Role: Lifetime Consulting Provider Address: Address: [address] [place] [address]- Name: Alejandrina Turner RN Position: [facility] RN Member Role: Primary Care Nurse Name: Zoraida Felix RN Position: [facility] RN Member Role: Primary Care Nurse Name: Daphne Hooker RN Position: [facility] RN Member Role: Primary Care Nurse Name: Nasima Gonzalez RN Position: [facility] RN Supv Member Role: Primary Care Nurse Name: Caitlyn Bowie MD Position: [facility] Primary Care Physician Member Role: PCP Address: Address: [address] [place] [address]- [place] Name: Sheeba García Position: S RN Member Role: Primary Care Nurse Name: Kiki Abdi RN Position: S RN Member Role: Primary Care Nurse Name: Marry Reza Position: S RN Member Role: Primary Care Nurse Name: Veronica Hurst [place] Position: [facility] PCO RN Member Role: Lifetime Consulting Physician Name: Maddie Herrera RN Position: [facility] RN Member Role: Primary Care Nurse Name: Raegan Baptiste RN Position: [facility] RN Member Role: Primary Care Nurse Name: Svitlana Marcum RN Position: [facility] AMB Nurse Member Role: Primary Care Nurse Name: She Pool Position: [facility] RN Member Role: Primary Care Nurse Name: Kaila Latham RN Position: [facility] ED RN W/OE and Tasks Member Role: Primary Care Nurse Name: Julio C Bahena Position: [facility] RN Member Role: Primary Care Nurse Name: Nasima Heredia RN Position: [facility] RN Member Role: Primary Care Nurse Name: Katherine Nixon PharmD Position: [facility] Associate Professional Member Role: Lifetime Consulting Provider Address: Address: [address] [place] [address] Name: Daphne Barton RN Position: [facility] RN Member Role: Primary Care Nurse Name: Katherine Long RN Position: [facility] RN Member Role: Primary Care Nurse Name: Norma Serrano RN Position: [facility] RN Member Role: Primary Care Nurse Name: Seven Kelly RN Position: [facility] RN Member Role: Primary Care Nurse Name: Fani Perez RN Position: [facility] RN Member Role: Primary Care Nurse Name: Hattie Brewster RN Position: [facility] RN Member Role: Primary Care Nurse Name: Yudith Rothman RN Position: [facility] Onco RN Member Role: Primary Care Nurse Name: Kelly Hernandez RN Position: [facility] RN Member Role: Primary Care Nurse Name: Parris Zuluaga RN Position: [facility] RN Member Role: Primary Care Nurse Care Team Related Persons Name: ZENAIDA FLORES Address: [place], [place] Name: TIA RIVERS Address: [address] [address] Name: JOHANN RETANA Address: [place] [address]
--- OUTSIDE RECORDS SUMMARY | 2023-10-14 16:31 | XMS_ITS | Continuity of Care Document ---
Author Organization [facility] Address [address] [place] [address]- Care Team Providers Care Ingot Header Name Role Phone Azeb STARK, Caitlyn Thompson Primary Care Physician [phone] [facility] Date(s): 04/01/21 - 05/01/21 [facility] [address] [place], [place] [address] [...] Vaccine Date Status Refusal Reason SARS-CoV-2 (COVID-19) mRNA-1274 vaccine 08/06/20 R ecorded Influenza Virus Vaccine [...] NEEDED DIRECTED Start Date: 04/21/21 Status: Ordered INCENTIVE SPIROMETER INCENTIVE SPIROMETER, See [...] EDT, ECCapsule Start Date: 01/26/18 Status: Ordered predniSONE 20 mg oral tablet See Instructions, take po daily, 2 tab x 4 days then, 1 tab x 4 days then half tab x 4 days then stop, # 14 tablet, 0 Refills, Acute 05/11/21 9:00:00 EDT, 04/29/21 12:01:00 EDT, Tablet, [facility], Partial fill upon patient request if t... Start Date: 04/29/21 Stop Date: 05/11/21 Status: Ordered rosuvastatin 10 mg oral tablet [...] 1 Refills, Maintenance, 02/24/21 16:22:00 EDT, Tablet, [facility], 134.6, cm, 02/24/21 [...]
--- OUTSIDE RECORDS SUMMARY | 2023-10-14 16:31 | XMS_ITS | Continuity of Care Document ---
Author Organization [facility] Address [address] [place] [address]- Care Team Providers Care Material Analyst Name Role Phone Caitlyn Bowie MD Primary Care Physician Encounter [facility] [place] Date(s): 09/28/23 - 10/05/23 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 Start Date: 09/14/22 Status: Ordered gabapentin 100 mg oral capsule 100 mg, 1, capsule, Refills 0, Maintenance, 09/28/23 14:35:00 EDT, Partial fill upon patient request if the prescription is for a schedule II opioid drug. Start Date: 09/28/23 Status: Ordered levothyroxine 25 mcg (0.025 mg) [...] EDT, Supply Start Date: 10/20/22 Status: Ordered potassium chloride 20 mEq oral powder for reconstitution DISSOLVE AND TAKE ONE PACKET BY MOUTH EVERY DAY Start Date: 09/28/23 Status: Ordered predniSONE 5 mg oral tablet [...] opioid drug. Start Date: 06/28/22 Status: Ordered Triamcinolone Once, 0 Refills, Maintenance, 09/01/23 11:53:00 EST, Partial fill upon patient request if the prescription is for a schedule II opioid drug. Start Date: 09/01/23 Status: Ordered Ventolin HFA 108 mcg/inh inhalation aerosol with adapter 2 puffs, Inhalation, Every 6 hours, PRN Wheezing/Shortness of Breath, 0 Refills, Maintenance, 01/26/18 16:34:30 EDT, Aerosol Start Date: 01/26/18 Status: Ordered Vitamin C By Mouth, Daily, 0 Refills, Maintenance, 09/01/23 11:53:00 EST, Partial fill upon patient request if the prescription is for a schedule II opioid drug. 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 Discharge Diagnosis 09/28/23 Right shoulder pain Discharge Diagnosis 09/28/23 Vital Signs Most recent to oldest [Reference Range]: 1 Height 159 cm (09/28/23 11:04 AM) Weight 59.9 kg (09/28/23 11:04 AM) Oxygen Saturation [94-100 %] 99 % (09/28/23 11:04 AM) Pulse Rate [55-90 bpm] 77 bpm (09/28/23 11:04 AM) Body Mass Index [18.5-24.99 kg/m2] 23.69 kg/m2 (09/28/23 11:04 AM) Blood Pressure [90-138/55-84 mm Hg] 132/ 78mm Hg (09/28/23 11:04 AM) Mode of Delivery (Oxygen) Room air (09/28/23 11:04 AM) Blood pressure sites Arm, left (09/28/23 11:04 AM) Social History Social History Type Response Smoking Status Never smoker; Tobacc o user in household: No entered on: 04/05/17 Sex EKG study * Event Display: ECG 12-Lead Authored Date: Please click on pdf link to open report * Event Display: ECG 12-Lead Authored Date: Ventricular Rate: 68 BPM Atrial Rate: 68 BPM P-R Interval: 140 ms QRS Duration: 122 ms Q-T Interval: 434 ms QTC Calculation(Bazett): 461 ms P [place]: 38 degrees R [place]: -54 degrees T [place]: 39 degrees Normal sinus rhythm Right bundle branch block Left axis deviation Left ventricular hypertrophy with QRS widening Abnormal ECG When compared with ECG of 08-SEP-2023 10:14, No significant change was found Confirmed by EBEN ZAMUDIO ([id number]) on 09/28/2023 2:14:17 PM Hammond: EBEN ZAMUDIO Note * Tracie Ruiz: PERFORM, SIGN, VERIFY Event Display: Patient Education/Instruction Authored Date: [facility] *No [facility] Adult [facility] Clinical Summary Name CINDA WATSON Age 78 Years 1945 PCP Caitlyn Bowie MD PCP Visit Date 09/28/2023 10:52:00 Additional Instructions: Scheduled Appointments?? Future Appointments ?*[facility]Adult ?[address]??[place],??[place],??[address] ?Phone:??--?Fax:??-- ?Appt. Date:??09/29/2023?8:00 AM ?Scheduled Provider:??Donya HAJI, Fei Follow-Up Instructions ?? Diagnosis Anemia, unspecified; Chest pain, unspecified Medications: Please continue your medications until treatment [...] as needed Wheezing/Shortness of Breath. Next Dose: Ascorbic Acid (Vitamin C) Oral Daily. Next Dose: Diazepam (diazepam 5 mg oral tablet) TAKE ONE-HALF TABLET BY MOUTH FOUR TIMES A DAY NEEDED FOR ANXIETY AND SLEEP. Refills: 5. Next Dose: Docusate (docusate sodium 100 mg oral capsule) 1 capsule Oral twice a day. Next Dose: Doxycycline (doxycycline monohydrate 100 mg oral tablet) take 1 tab with dinner tonight and one with breakfast tomorrow and then one with dinner. Refills: 0. Next Dose: Durable Medical Equipment (Orthotics) Molded orthotics for bilateral feet. Diagnosis: Arthritis of feet with pain. Refills: 0. Next Dose: elderberry (elderberry oral liquid) 15 Milliliter Oral Daily. Next Dose: EPINEPHrine (EPINEPHrine 0.3 mg injectable solution) 0.3 Milligram Intramuscular once as needed Anaphylactic Reaction. Next Dose: EPINEPHrine (EpiPen 2-Daniel 0.3 mg injectable kit) 0.3 Milligram Intramuscular once. may repeat if necessary. Refills: 0. Next Dose: Ferrous Gluconate (ferrous gluconate 324 [...] Daily in PM. Dr. Kelly. Next Dose: Omeprazole (omeprazole 40 mg oral enteric coated capsule) 1 capsule Oral Daily as needed. Next Dose: Potassium Chloride (potassium chloride 20 mEq oral powder for reconstitution) DISSOLVE AND TAKE ONEPACKET BY MOUTH EVERY DAY. Next Dose: PredniSONE (predniSONE 5 mg oral tablet) 2.5 Milligram Oral every other day. Next Dose: Rosuvastatin (rosuvastatin 10 mg oral tablet) 1 tab(s) Oral Monday, Monday and Monday. Next Dose: Trazodone (traZODone 50 mg oral tablet) 2 tab(s) Oral Daily at Bedtime. Dr. Kelly. Refills: 0. Next Dose: Triamcinolone once. Next Dose: Warfarin (warfarin 1 mg oral tablet) take 2-3 tablets By Mouth Daily as directed by the anticoagulation clinic. Refills: 2. Next Dose: No Longer Take the Following Medications Potassium Acetate Allergy Info:?? Avocado; Shrimp; Mold; Contrast Dye; Bee Stings; Avelox; Levaquin; Gastrografin; Biaxin; Novocain; Flagyl; Zithromax; Voltaren; iodinated radiocontrast dyes; sulfa drugs; barium sulfate; morphine; ipratropium; busPIRone; vancomycin; penicillin; erythromycin; clindamycin; gentamicin; ciprofloxacin Medications Given This Visit Future Orders ?No future orders Future Orders ?High??Sensitivity??Troponin T? Order Date:09/28/23?- Complete within?Iron + Iron Binding Capacity? Order Date:09/28/23?- Complete within?Ferritin? Order Date:09/28/23?- Complete within?Basic Metabolic Panel? Order Date:09/28/23?- Complete within?Magnesium Level? Order Date:09/28/23?- Complete within? Vital Signs Height 159 cm Weight 59.9 kg BMI 23.69 kg/m2 Blood Pressure 132 mm Hg/78 mm Hg Temperature Pulse Rate 77 bpm Respiratory Rate 02 Sat Mode of Delivery 99 %/Room air You can now view a summary of your hospital visit from the comfort of your home through a free online portal called Mlog. Mlog is a website that allows you to securely view your medical information including discharge summary, medications and follow-up visits. ??You can alsosend a secure electronic message to your doctor???s office to request appointments, renew medications or just ask a question. You can enroll at [email or web address] or register during your next office visit. [...] primary care provider, you may find a [facility] provider by calling [facility] Link at [phone]. [facility], in keeping with [facility] guidance, no longer requires face masks for [...] Care Team Personnel Name: Val Wynne Position: [facility] Onco RN Member Role: Primary Care Nurse Name: Karen Pittman RN Position: [facility] RN Member Role: Primary Care Nurse Name: Shilpi Mattson Position: Reference Physician Member Role: Primary Care Nurse Address: Address: [address] [place] [address]- Name: Toyin Doherty RN Position: [facility] RN Member Role: Primary Care Nurse Name: Eben Hernandez NP Position: [facility] Associate Professional Member Role: Lifetime Consulting Provider Address: Address: [address] [place] [address]- Name: Alejandrina Turner RN Position: [facility] RN Member Role: Primary Care Nurse Name: Zoraida Felix RN Position: [facility] ED RN W/OE and Tasks Member Role: Primary Care Nurse Name: Jaye Harley Position: [facility] [place] Agricultural Economics Professor Member Role: Director Broadcast Name: Daphne Hooker RN Position: [facility] RN Member Role: Primary Care Nurse Name: Caitlyn Bowie MD Position: [facility] Physician - Primary Care Member Role: PCP Address: Address: [address] [place] [id number]- [place] Name: Kiki Abdi RN Position: [facility] RN Member Role: Primary Care Nurse Name: Marry Reza Position: [facility] RN Member Role: Primary Care Nurse Name: Veronica Hurst [place] Position: [facility] SALLY [place] Member Role: Lifetime Consulting Physician Name: Maddie Herrera RN Position: [facility] SALLY Nurse Member Role: Primary Care Nurse Name: Yudith Herrera RN Position: [facility] Onco RN Member Role: Primary Care Nurse Name: Raegan Baptiste RN Position: [facility] RN Member Role: Primary Care Nurse Name: She Pool Position: [facility] RN Member Role: Primary Care Nurse Name: Kaila Latham RN Position: [facility] RN Member Role: Primary Care Nurse Name: JulioC Bahena Position: [facility] RN Member Role: Primary Care Nurse Name: Nasima Heredia RN Position: [facility] RN Member Role: Primary Care Nurse Name: Katherine Nixon PharmD Position: [facility] Associate Professional Member Role: Lifetime Consulting Provider Address: Address: [address] [place] [id number] Name: Daphne Barton RN Position: [facility] RN Member Role: Primary Care Nurse Name: Katherine Long RN Position: [facility] RN Member Role: Primary Care Nurse Name: Norma Serrano RN Position: [facility] RN Member Role: Primary Care Nurse Name: Seven Kelly RN Position: [facility] ED RN W/OE and Tasks Member Role: Primary Care Nurse Name: Fani Perez RN Position: [facility] RN Member Role: Primary Care Nurse Name: Hattie Brewster RN Position: [facility] RN Member Role: Primary Care Nurse Name: Kelly Hernandez RN Position: [facility] RN Member Role: Primary Care Nurse Name: Pallavi Wylie LPN Position: [facility] RN Member Role: Primary Care Nurse Name: Parris Zuluaga RN Position: [facility] RN Member Role: Primary Care Nurse Care Team Related Persons Name: ZENAIDA FLORES Address: [place], [place] Name: TIA RIVERS Address: [place] [address] Name: JOHANN RETANA Address: [place], [place]
--- OUTSIDE RECORDS SUMMARY | 2023-10-14 16:31 | XMS_ITS | Continuity of Care Document ---
Author Organization [facility] Address [address] [place] [address]- Care Team Providers Care Scorer Single Name Role Phone Caitlyn Bowie MD Primary Care Physician [facility]counter [facility] Date(s): 08/03/23 - 09/02/23 [facility] [address] [place] [address]- Attending Physician: Melissa Morrison Admitting Physician: Melissa Morrison Referring Physician: AdmMelissa coronado Referring Physician: Kaila Molina Allergies, Adverse Reactions, Alerts Substance Reaction Severity [...] EDT, Supply Start Date: 10/20/22 Status: Ordered Potassium Acetate 0 Refills, Maintenance, 09/01/23 11:53:00 EST, Partial fill upon patient request if the prescription is for a schedule II opioid drug. Start Date: 09/01/23 Status: Ordered predniSONE 5 mg oral tablet [...] in household: No entered on: 04/05/17 Sex Cardiology * Event Display: Non [facility] Cardiovascular Results Authored Date: * Event Display: Non [facility] Cardiovascular Results Authored Date: * Event Display: Stress Worksheet Office Visit Authored Date: Radiology * Event Display: MRI Abdomen, Non- BH Authored Date: Patient Care team information Care Team Personnel Name: Val Wynne Position: [facility] Onco RN Member Role: Primary Care Nurse Name: Karen Pittman RN Position: S RN Member Role: Primary Care Nurse Name: Shilpi Mattson Position: Reference Physician Member Role: Primary Care Nurse Address: Address: [address] [place] [phone] [place] Name: Toyin Doherty RN Position: [facility] RN Member Role: Primary Care Nurse Name: Eben Hernandez NP Position: [facility] Associate Professional Member Role: Lifetime Consulting Provider Address: Address: [address] [place] [address]- [place] Name: Alejandrina Turner RN Position: [facility] RN Member Role: Primary Care Nurse Name: Zoraida Felix RN Position: [facility] ED RN W/OE and Tasks Member Role: Primary Care Nurse Name: Jaye Harley Position: [facility] [place] User Interface Artist Member Role: Cso Name: Daphne Hooker RN Position: [facility] RN Member Role: Primary Care Nurse Name: Nasima Gonzalez RN Position: [facility] RN Supv Member Role: Primary Care Nurse Name: Caitlyn Bowie MD Position: [facility] Physician - Primary Care Member Role: PCP Address: Address: [address] [place] [address]- [place] Name: Kiki Abdi RN Position: [facility] RN Member Role: Primary Care Nurse Name: Marry Reza Position: [facility] RN Member Role: Primary Care Nurse Name: Veronica Hurst [place] Position: [facility] SALLY [place] Member Role: Lifetime Consulting Physician Name: Maddie Herrera RN Position: [facility] SALLY Nurse Member Role: Primary Care Nurse Name: Yudith Herrera RN Position: [facility] Onco RN Member Role: Primary Care Nurse Name: Raegan Baptiste RN Position: [facility] RN Member Role: Primary Care Nurse Name: She Pool Position: [facility] RN Member Role: Primary Care Nurse Name: Kaila Latham RN Position: [facility] RN Member Role: Primary Care Nurse Name: Julio C Bahena Position: [facility] RN Member Role: Primary Care Nurse Name: Nasima Heredia RN Position: [facility] RN Member Role: Primary Care Nurse Name: Katherine Nixon PharmD Position: [facility] Associate Professional Member Role: Lifetime Consulting Provider Address: Address: [address] [place] [address] Name: Daphne Barton RN Position: [facility] RN Member Role: Primary Care Nurse Name: Katherine Long RN Position: [facility] RN Member Role: Primary Care Nurse Name: Norma Serrano RN Position: [facility] RN Member Role: Primary Care Nurse Name: Seven Kelly RN Position: [facility] ED RN W/OE and Tasks Member Role: Primary Care Nurse Name: Fani Perez RN Position: [facility] RN Member Role: Primary Care Nurse Name: Hattie Brewster RN Position: [facility] RN Member Role: Primary Care Nurse Name: Kelly Hernandez RN Position: [facility] RN Member Role: Primary Care Nurse Name: Pallavi Wylie LPN Position: [facility] RN Member Role: Primary Care Nurse Name: Parris Zuluaga RN Position: [facility] RN Member Role: Primary Care Nurse Care Team Related Persons Name: ZENAIDA FLORES Address: [place], [place] Name: TIA RIVERS Address: [place] [address] Name: JOHANN RETANA Address: [place], [place]
--- OUTSIDE RECORDS SUMMARY | 2023-10-14 16:31 | XMS_ITS | Continuity of Care Document ---
Author Organization [facility] Address [address] [place] [address]- Care Team Providers Care Loan Closer Name Role Phone Caitlyn Bowie MD Primary Care Physician Encounter [facility] Date(s): 05/18/23 - 06/17/23 [facility] [address] [place], [place] [address] Allergies, Adverse Reactions, Alerts Substance Reaction Severity Status ciprofloxacin Active clindamycin throat tightening Active erythromycin Active penicillin 1 Active busPIRone Feeling of throat ti ghtness Headache Dizziness Active morphine Active barium sulfate Active sulfa drugs Active Voltaren Active gentamicin Active vancomycin Active ipratropium Active iodinated radiocontrast dyes Active Biaxin Active Zithromax Active Flagyl Active Novocain Active Gastrografin Active Bee Stings [...] Personnel Name: Val Wynne Position: [facility] Onco RN Member Role: Primary Care Nurse Name: Karen Pittman RN Position: [facility] RN Member Role: Primary Care Nurse Name: Shilpi Mattson Position: Reference Physician Member Role: Primary Care Nurse Address: Address: [address] [place] [phone]- [place] Name: Toyin Doherty RN Position: [facility] RN Member Role: Primary Care Nurse Name: Eben Hernandez NP Position: [facility] Associate Professional Member Role: Lifetime Consulting Provider Address: Address: [address] [place] [address]- [place] Name: Alejandrina Turner RN Position: [facility] RN Member Role: Primary Care Nurse Name: Zoraida Felix RN Position: [facility] ED RN W/OE and Tasks Member Role: Primary Care Nurse Name: Daphne Hooker RN Position: [facility] RN Member Role: Primary Care Nurse Name: Nasima Gonzalez RN Position: [facility] RN Supv Member Role: Primary Care Nurse Name: Caitlyn Bowie MD Position: [facility] Physician - Primary Care Member Role: PCP Address: Address: [address] [place] [address]- [place] Name: Kiki Abdi RN Position: [facility] RN Member Role: Primary Care Nurse Name: Marry Reza Position: S RN Member Role: Primary Care Nurse Name: Veronica Hurst [place] Position: [facility] SALLY JORGENSEN Member Role: Lifetime Consulting Physician Name: Yudith Ruiz RN Position: [facility] Onco RN Member Role: Primary Care Nurse Name: Maddie Herrera RN Position: [facility] AMB Nurse Member Role: Primary Care Nurse Name: Raegan Baptiste RN Position: [facility] RN Member Role: Primary Care Nurse Name: She Pool Position: [facility] RN Member Role: Primary Care Nurse Name: Kaila Latham RN Position: [facility] RN Member Role: Primary Care Nurse Name: Julio C Bahena Position: [facility] RN Member Role: Primary Care Nurse Name: Nasima Heredia RN Position: [facility] RN Member Role: Primary Care Nurse Name: Katherine Nixon PharmD Position: [facility] Associate Professional Member Role: Lifetime Consulting Provider Address: Address: [address] [place] [id number] Name: Daphne Barton RN Position: [facility] RN Member Role: Primary Care Nurse Name: Katherine Long RN Position: [facility] RN Member Role: Primary Care Nurse Name: Norma Serrano RN Position: [facility] RN Member Role: Primary Care Nurse Name: Seven Kelly RN Position: [facility] RN Member Role: Primary Care Nurse Name: Fani Perez RN Position: [facility] RN Member Role: Primary Care Nurse Name: Hattie Brewster RN Position: [facility] RN Member Role: Primary Care Nurse Name: Kelly Hernandez RN Position: [facility] RN Member Role: Primary Care Nurse Name: Pallavi Wylie LPN Position: [facility] RN Member Role: Primary Care Nurse Name: Parris Zuluaga RN Position: [facility] RN Member Role: Primary Care Nurse Care Team Related Persons Name: MARK ZENAIDA Address: [place] [address] Name: TIA RIVERS Address: [place] [address] Name: JOHANN RETANA Address: [place] [address]
--- OUTSIDE RECORDS SUMMARY | 2023-10-14 16:31 | XMS_ITS | Continuity of Care Document ---
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 Discharge Diagnosis 03/22/21 Hypothyroidism Discharge Diagnosis 03/22/21 Deep vein thrombosis Discharge Diagnosis 03/22/21 Heterozygous Factor V Leiden mutation Discharge Diagnosis 03/22/21 PE - Pulmonary embolism Discharge Diagnosis 03/22/21 Vital Signs Most recent to oldest [Reference Range]: 1 Height 134.6 cm (03/22/21 11:06 AM) Weight 58.3 kg (03/22/21 11:06 AM) Oxygen Saturation [94-100 %] 97 % (03/22/21 11:06 AM) Pulse Rate [55-90 bpm] 82 bpm (03/22/21 11:06 AM) Body Mass Index [18.5-24.99] 32.18 *>HHI* (03/22/21 11:06 AM) Blood Pressure [90-138/55-84 mm Hg] 106/ 58mm Hg (03/22/21 11:06 AM) Respiratory Rate [16-30 br/min] 18 br/mi n (03/22/21 11:06 AM) Temperature [96.8-100.4 DegF] 98.4 DegF (03/22/21 11:06 AM) Mode of Delivery (Oxygen) Room air (03/22/21 11:06 AM) Blood pressure sites Arm, left (03/22/21 11:06 AM) Temperature Route Temporal (03/22/21 11:06 AM) Weight Obtained Via Standing scale (03/22/21 11:06 AM) Social History Social History Type Response Smoking Status Never smoker; Tobacc o user in household: No entered on: 04/05/17 Sex
--- OUTSIDE RECORDS SUMMARY | 2023-10-14 16:32 | XMS_ITS | Continuity of Care Document ---
Author Organization [facility] Address [address] [place] [address]- Care Team Providers Care Utility Mechanic Name Role Phone Caitlyn Bowie MD Primary Care Physician Encounter [facility] [place] Date(s): 04/06/21 - 05/06/21 [facility] [address] [place] [address]- [place] Allergies, Adverse Reactions, Alerts Substance Reaction Severity [...] DIRECTED Start Date: 04/21/21 Status: Ordered furosemide 40 mg oral tablet See Instructions, take 1/2 tablet by mouth daily, # 180 tablet, Refills 1, Tot. Refills 1, Maintenance, 05/05/21 14:46:00 EDT, Instructions Replace Required Details, Route to Pharmacy Electronically,[facility], Partial fill upon patient... Start Date: 05/05/21 Status: Ordered INCENTIVE SPIROMETER INCENTIVE SPIROMETER, See [...]
--- OUTSIDE RECORDS SUMMARY | 2023-10-14 16:32 | XMS_ITS | Continuity of Care Document ---
Author Organization [facility] Address [address] [place] [address]- Care Team Providers Care Driver Medic Name Role Phone Caitlyn Bowie MD Primary Care Physician [phone] [place] [facility] [place] 09/09/22 - 09/16/22 [facility] [address] [place], [place] [address] Encounter Diagnosis LUQ pain(Discharge Diagnosis) - 09/09/22 Insomnia(Discharge Diagnosis) - 09/09/22 Attending Physician: Caitlyn Bowie MD Allergies, Adverse Reactions, Alerts Substance Reaction Severity Status ciprofloxacin Active busPIRone Feeling of throat ti ghtness Headache Dizziness Active ipratropium Active barium sulfate Active Voltaren Active gentamicin Active erythromycin Active penicillin 1 Active vancomycin Active morphine Active sulfa drugs Active iodinated radiocontrast dyes Active Gastrografin Active Levaquin Avocado Active Zithromax Active Flagyl Active Novocain Active Biaxin Active Avelox Active Bee Stings Active Contrast Dye Active Avocado Active Mold Active Shrimp Active 1Allergy testing [...] vaccine 05/09/11 Given SARS-CoV-2 (COVID-19) mRNA-1273 vaccine 2/25/21 R ecorded SARS-CoV-2 (COVID-19) mRNA-1273 vaccine 08/06/20 [...] Effective Dates Status H ealth Status Informant Antiphospholipid syndrome Confirmed Active CHF - Congestive heart failure [...] Dates Health Status Clini radha Service Informant LUQ pain Discharge Diagnosis 09/09/22 Insomnia Discharge Diagnosis 09/09/22 Vital Signs Most recent to oldest [Reference Range]: 1 Height 160.02 cm (09/09/22 11:02 AM) Weight 58.3 kg (09/09/22 11:02 AM) Oxygen Saturation [94-100 %] 96 % (09/09/22 11:02 AM) Pulse Rate [55-90 bpm] 87 bpm (09/09/22 11:02 AM) Body Mass Index [18.5-24.99 kg/m2] 22.77 kg/m2 (09/09/22 11:02 AM) Blood Pressure [90-138/55-84 mm Hg] 96/4 0mm Hg (09/09/22 11:02 AM) Temperature [96.8-100.4 DegF] 98.1 DegF (09/09/22 11:02 AM) Mode of Delivery (Oxygen) Room air (09/09/22 11:02 AM) Blood pressure sites Arm, left (09/09/22 11:02 AM) Temperature Route Temporal (09/09/22 11:02 AM) Weight Obtained Via Standing scale (09/09/22 11:02 AM) Social History Social History Type Response Smoking Status Never smoker; Tobacc o user in household: No entered on: 04/05/17 Sex Note * Yoly Newman: PERFORM, SIGN, VERIFY Event Display: Patient Education/Instruction Authored Date: [id number] [facility] Clinical Summary Name CINDA WATSON Age 77 Years 1945 PCP Caitlyn Bowie MD PCP Visit Date 09/09/2022 10:50:00 Additional Instructions: Scheduled Appointments?? Future Appointments ?*[facility]??Cardiology1 [address]??[place],??[place],??[address] ?Phone:??--?Fax:??-- ?Appt. Date:??09/14/2022?1:45 PM ?Scheduled Provider:??Rabia STARK, Leno ?*[facility] [address]??[place],??[place],??[address] ?Phone:??--?Fax:??-- ?Appt. Date:??09/26/2022?11:00 AM ?Scheduled Provider:??Caitlyn Bowie MD Follow-Up Instructions ?? Diagnosis Medications: Please continue your medications until treatment is completed or stopped by your provider. Discuss any questions related to medications with your provider. New Medications [facility], [address] [place], [place] [id number], [phone] Ramelteon (ramelteon 8 mg oral tablet) 1 tab(s) Oral Daily at Bedtime. Refills: 0. Next Dose: Medications to Continue with No Changes These [...] anxiety & sleep. Refills: 1. Next Dose: Docusate (docusate sodium 100 mg oral capsule) 1 capsule Oral twice a day. Next Dose: elderberry (elderberry oral liquid) 15 Milliliter Oral Daily. Next Dose: EPINEPHrine (EPINEPHrine 0.3 mg injectable solution) 0.3 Milligram Intramuscular once as needed Anaphylactic Reaction. Next Dose: Ferrous Gluconate (ferrous gluconate 324 mg oral tablet) 1 tab(s) Oral Daily. WITH BREAKFAST. Next Dose: Fluticasone-Salmeterol (Advair HFA 230 mcg / 21 mcg) 2 puff(s) Inhalation twice a day. Next Dose: Levothyroxine (levothyroxine 25 mcg (0.025 mg) oral capsule) 1 capsule Oral Daily. Monday through Monday. Next Dose: Levothyroxine (levothyroxine 50 mcg (0.05 mg) oral capsule) 1 capsule Oral Daily. Monday & Monday's. Next Dose: Meclizine (meclizine 25 mg oral tablet) can take extra 25mg for up to four per day; as needed as needed for dizziness. Refills: 4. Next Dose: Metoprolol (Metoprolol Succinate ER 25 mg oral tablet, extended release) TAKE ONE TABLET BY MOUTH TWICE A DAY WITH BREAKFAST AND DINNER. Next Dose: Montelukast (Singulair 10 mg oral tablet) 1 tab(s) Oral Daily in PM. Dr. Kelly. Next Dose: Multivitamin (B-Complex SR) 1 tab(s) Oral Daily. Next Dose: Omeprazole (omeprazole 40 mg oral enteric coated capsule) 1 capsule Oral Daily as needed. Next Dose: PredniSONE 5 Milligram Oral Daily. Next Dose: Rosuvastatin (rosuvastatin 10 mg oral tablet) 1 tab(s) Oral Monday, Monday and Monday. Next Dose: Trazodone (traZODone 50 mg oral tablet) 2 tab(s) Oral Daily at Bedtime. Dr. Kelly. Refills: 0. Next Dose: Warfarin (warfarin 1 mg oral tablet) take 1-3 tablets By Mouth Daily as directed by the anticoagulation clinic. Refills: 2. Next Dose: Allergy Info:?? Avocado; Shrimp; Mold; Contrast Dye; Bee Stings; Avelox; Levaquin; Gastrografin; Biaxin; Novocain; Flagyl; Zithromax; Voltaren; iodinated radiocontrast dyes; sulfa drugs; barium sulfate; morphine; ipratropium; busPIRone; vancomycin; penicillin; erythromycin; gentamicin; ciprofloxacin Medications Given This Visit Future Orders ?No future orders Vital Signs Height 160.02 cm Weight 58.3 kg BMI 22.77 kg/m2 Blood Pressure 96 mm Hg/40 mm Hg Temperature 98.1 DegF Pulse Rate 87 bpm Respiratory Rate 02 Sat Mode of Delivery 96 %/Room air You can now view a summary of your hospital visit from the comfort of your home through a free online portal called [employer]. [employer] is a website that allows you to securely view your medical information including discharge summary, medications and follow-up visits. ??You can alsosend a secure electronic message to your doctor???s office to request appointments, renew medications or just ask a question. You can enroll at [email or web address] or register during your next office visit. [...] primary care provider, you may find a [facility] provider by calling [facility] [employer] Link at [phone]. For information about the plan of care [...] Member Role: Primary Care Nurse Address: Address: [address] [place] [address] [address] [place] [address]- [place] Name: Toyin Doherty RN Position: [facility] RN Member Role: Primary Care Nurse Name: Eben Hernandez NP Position: [facility] Associate Professional Member Role: Lifetime Consulting Provider Address: Address: [address] [place] [address]- Name: Alejandrina Turner RN Position: [facility] RN Member Role: Primary Care Nurse Name: Zoraida Felix RN Position: [facility] RN Member Role: Primary Care Nurse Name: Daphne Hooker RN Position: [facility] RN Member Role: Primary Care Nurse Name: Nasima Gonzalez RN Position: [facility] RN Supv Member Role: Primary Care Nurse Name: Caitlyn Bowie MD Position: [facility] Primary Care Physician Member Role: PCP Address: Address: [address] [place] [address]- Name: Sheeba García Position: [facility] RN Member Role: Primary Care Nurse Name: Kiki Abdi RN Position: [facility] RN Member Role: Primary Care Nurse Name: Marry Reza Position: [facility] RN Member Role: Primary Care Nurse Name: Veronica Hurst [place] Position: [facility] PCO RN Member Role: Lifetime Consulting Physician Name: Maddie Herrera RN Position: [facility] RN Member Role: Primary Care Nurse Name: Raegan Baptiste RN Position: [facility] RN Member Role: Primary Care Nurse Name: Svitlana Marcum RN Position: [facility] AMB Nurse Member Role: Primary Care Nurse Name: She Pool Position: [facility] RN Member Role: Primary Care Nurse Name: Kaila Latham RN Position: [facility] RN Member Role: Primary Care Nurse Name: Julio C Bahena Position: [facility] RN Member Role: Primary Care Nurse Name: Nasima Heredia RN Position: [facility] RN Member Role: Primary Care Nurse Name: Katherine Nixon PharmD Position: [facility] Associate Professional Member Role: Lifetime Consulting Provider Address: Address: [address] [place] [address]- [place] Name: Daphne Barton RN Position: [facility] RN Member Role: Primary Care Nurse Name: Katherine Long RN Position: [facility] RN Member Role: Primary Care Nurse Name: Norma Serrano RN Position: [facility] RN Member Role: Primary Care Nurse Name: Seven Kelly RN Position: [facility] RN Member Role: Primary Care Nurse Name: Fani Perez RN Position: [facility] RN Member Role: Primary Care Nurse Name: Hattie Brewster RN Position: [facility] RN Member Role: Primary Care Nurse Name: Yudith Rothman RN Position: [facility] Onco RN Member Role: Primary Care Nurse Name: Kelly Hernandez RN Position: [facility] RN Member Role: Primary Care Nurse Name: Parris Zuluaga RN Position: [facility] RN Member Role: Primary Care Nurse Care Team Related Persons Name: ZENAIDA FLORES Address: [place] [address] Name: TIA RIVERS Address: [address] [address] Name: JOHANN RETANA Address: [place] [address]
--- OUTSIDE RECORDS SUMMARY | 2023-10-14 16:32 | XMS_ITS | Continuity of Care Document ---
Author Organization [facility] Address [address] [place] [address]- Care Team Providers Care Filter Changing Technician Name Role Phone Brennan Burnett MD Primary Care Physician [place] [facility] [place]20 [place] 09/25/20 [facility] [address] [place] [address]- Allergies, Adverse Reactions, Alerts Substance Reaction Severity Status ciprofloxacin Active barium sulfate Active Gastrografin Active Levaquin Avocado Active gentamicin Active erythromycin Active penicillin 1 [...] By Mouth, Daily, Dr. primo Renee at [place], # 30 tablet, 0 Refills, Maintenance, 01/26/18 [...]
--- OUTSIDE RECORDS SUMMARY | 2023-10-14 16:32 | XMS_ITS | Continuity of Care Document ---
Author Organization [facility] Address [address] [place] [address]- Care Team Providers Care Supply Chain Business Analyst Name Role Phone Caitlyn Bowie MD Primary Care Physician Encounter [facility] Date(s): 03/08/22 - 04/07/22 [facility] [address] [place], [place] [address] Allergies, Adverse Reactions, Alerts Substance Reaction Severity Status ciprofloxacin Active busPIRone Feeling of throat ti ghtness Headache Dizziness Active barium sulfate Active Voltaren Active Zithromax Active Flagyl Active gentamicin Active erythromycin Active penicillin 1 Active vancomycin Active ipratropium Active morphine Active sulfa drugs Active iodinated radiocontrast dyes Active Gastrografin Active Levaquin Avocado Active Novocain [...] Vaccine (oldterm) 04/22/19 Recorde d tetanus/diphtheria/pertussis, acel(Tdap) 8/21/16 Given pneumococcal 13-valent vaccine 04/21/14 Given Medications [...] day, 0 Refills, Maintenance, 11/06/21 12:44:00 EDT, [place], Partialfill upon patient request if the prescription is for a schedule II opioid drug. Start Date: 11/06/21 Status: Ordered furosemide 20 mg oral tablet 1, tablet, By Mouth, Daily, PRN, # 90 tablet, Refills 2, NEEDED FOR LEG SWELLING, Route to Pharmacy Electronically, [facility], 160, cm, 12/23/21 8:08:00 EDT, [...] Refills, Maintenance, 11/09/21 9:33:00 EDT, EC Capsule, [facility], Partial fill upon patient [...] Personnel Name: Caitlyn Bowie MD Address: Address: [address] [place] [address]
--- OUTSIDE RECORDS SUMMARY | 2023-10-14 16:32 | XMS_ITS | Continuity of Care Document ---
Author Organization [facility] Address [address] [address]- Care Team Providers Care Breeder Hen Service Technician Name Role Phone Caitlyn Bowie MD Primary Care Physician [phone] Encounter [facility] Date(s): 03/11/21 - 04/10/21 [facility] [address] [address] Allergies, Adverse Reactions, Alerts Substance Reaction Severity [...] Vaccine Date Status Refusal Reason SARS-CoV-2 (COVID-19) mRNA-1276 vaccine 08/06/20 R ecorded Influenza Virus Vaccine [...] Not Route Start Date: 02/15/21 Status: Ordered diazepam 5 mg oral tablet See Instructions, PRN, TAKE 1/2 TO 1 TAB twice daily as needed for anxiety/sleep, # 60 tablet, Refills 3, Tot. Refills 3, Maintenance, as needed for sleep, 04/02/21 9:54:00 EDT, Instructions Replace Required Details, Route to Pharmacy Electronically,... Start Date: 04/02/21 Status: Ordered Dulcolax Stool Softener = 100 [...] times a day, Dr. primo Renee at [place], per pt, # 30 tablet, 0 Refills, [...] LLQ pain(Confirmed) Active Mitral valve prolapse(Confirmed) Active Optic neuritis(Confirmed) [...]
--- OUTSIDE RECORDS SUMMARY | 2023-10-14 16:32 | XMS_ITS | Continuity of Care Document ---
Author Organization [facility] Address [address] [place] [address]- Care Team Providers Care Lens Mounter Name Role Phone Caitlyn Bowie MD Primary Care Physician Encounter [facility] [place] Date(s): 04/19/21 - 05/19/21 [facility] [address] [place] [address]- Attending Physician: Melissa Morrison Admitting Physician: Melissa Morrison Referring Physician: Melissa Morrison Referring Physician: Toyin Cm Allergies, Adverse Reactions, Alerts Substance Reaction Severity Status ciprofloxacin Active penicillin 1 Active barium sulfate Active Flagyl Active gentamicin Active erythromycin Active vancomycin Active ipratropium Active morphine Active sulfa drugs Active iodinated radiocontrast dyes Active Voltaren Active Zithromax Active Gastrografin Active Levaquin Avocado Active Novocain Active Biaxin Active Avelox Active [...]
--- OUTSIDE RECORDS SUMMARY | 2023-10-14 16:32 | XMS_ITS | Continuity of Care Document ---
Author Organization [facility] Address [address] [place] [address]- Care Team Providers Care Statistics Intern Name Role Phone Caitlyn Bowie MD Primary Care Physician [phone] Encounter [facility] Date(s): 03/18/21 - 04/17/21 [facility] [address] [place] [address]- Allergies, Adverse Reactions, Alerts Substance Reaction Severity [...] EDT, Solution Start Date: 01/26/18 Status: Ordered aspirin 81 mg oral delayed release tablet 81 mg, By Mouth, Daily, # 30 tablet, Refills 0, Tot. Refills 0, Maintenance, 04/16/21 16:14:00 EDT,Route to Pharmacy Electronically, [facility], Partial fill upon patient request if the prescription is for a schedule II opioid drug., 13... Start Date: 04/16/21 Stop Date: 05/16/21 Status: Ordered atorvastatin 80 mg oral tablet 1 tablet = 80 mg, By Mouth, Daily at bedtime, # 30 tablet, 0 Refills, Maintenance, 04/16/21 16:15:00 EDT, Tablet, [facility], Partial fill upon patient request if the prescription is for a schedule II opioid drug., 134.6, cm, 04/02/21 9:... Start Date: 04/16/21 Status: Ordered diazepam 5 mg oral tablet See Instructions, PRN, TAKE 1/2 TO 1 TAB 5 mg By Mouth Daily at bedtime, # 30 tablet, Refills 3, Tot. Refills 3, Maintenance, as needed for sleep, 02/15/21 12:03:00 EDT, Instructions Replace RequiredDetails, Do Not Route Start Date: 02/15/21 Status: Ordered magnesium oxide 500 mg oral [...] 9:04:00 EDT, Height, 65, kg,... Start Date: 8/18/21 Status: Ordered Problem List Condition Effective Dates [...]
--- OUTSIDE RECORDS SUMMARY | 2023-10-14 16:32 | XMS_ITS | Continuity of Care Document ---
Author Organization [facility] Address [address] [place] [address]- Care Team Providers Care Outside Sales Advertising Executive Name Role Phone Caitlyn Bowie MD Primary Care Physician [place] [facility] [place] 02[place]/23 [facility] [address] [place] [address]- Attending Physician: Anish Neil MD Admitting Physician: [...] EST, ; Start Date: 05/16/22 Status: Ordered Lidoderm 5% film Topically, Daily, 0 Refills, Maintenance, 01/25/23 11:11:00 EDT, Partial fill upon patient request if the prescription is for a schedule II opioid drug. Start Date: 01/25/23 Status: Ordered meclizine 25 mg oral tablet [...] team information Care Team Personnel Name: Val yWnne Position: [facility] Onco RN Member Role: Primary Care Nurse Name: Karen Pittman RN Position: S RN Member Role: Primary Care Nurse Name: Shilpi Mattson Position: Reference Physician Member Role: Primary Care Nurse Address: Address: [address] [place] [address] Name: Toyin Doherty RN Position: S RN Member Role: Primary Care Nurse Name: Eben Hernandez NP Position: S Associate Professional Member Role: Lifetime Consulting Provider Address: Address: [address] [place] [address]- Name: Alejandrina Turner RN Position: S RN Member Role: Primary Care Nurse Name: Zoraida Felix RN Position: S RN Member Role: Primary Care Nurse Name: Daphne Hooker RN Position: S RN Member Role: Primary Care Nurse Name: Nasima Gonzalez RN Position: [facility] RN Supv Member Role: Primary Care Nurse Name: Caitlyn Bowie MD Position: [facility] Physician - Primary Care Member Role: PCP Address: Address: [address] [place] [address]- Name: Kiki Abdi RN Position: [facility] RN Member Role: Primary Care Nurse Name: Marry Reza Position: [facility] RN Member Role: Primary Care Nurse Name: Veronica Hurst [place] Position: [facility] AMB [place] Member Role: Lifetime Consulting Physician Name: Maddie Herrera RN Position: [facility] AMB Nurse Member Role: Primary Care Nurse Name: Raegan Baptiste RN Position: [facility] RN Member Role: Primary Care Nurse Name: Svitlana Marcum RN Position: [facility] AMB Nurse Member Role: Primary Care Nurse Name: She Pool Position: [facility] RN Member Role: Primary Care Nurse Name: Kaila Latham RN Position: [facility] RN Member Role: Primary Care Nurse Name: Julio C Bahena Position: [facility] RN Member Role: Primary Care Nurse Name: Nasima Heredia RN Position: [facility] RN Member Role: Primary Care Nurse Name: Katherine Nixon PharmD Position: [facility] Associate Professional Member Role: Lifetime Consulting Provider Address: Address: [address] [place] [address]- Name: Daphne Barton RN Position: [facility] RN Member Role: Primary Care Nurse Name: Katherine Long RN Position: [facility] RN Member Role: Primary Care Nurse Name: Norma Serrano RN Position: [facility] RN Member Role: Primary Care Nurse Name: Seven Kelly RN Position: [facility] RN Member Role: Primary Care Nurse Name: Fani Perez RN Position: [facility] RN Member Role: Primary Care Nurse Name: Hattie Brewster RN Position: [facility] RN Member Role: Primary Care Nurse Name: Yudith Rothman RN Position: [facility] Onco RN Member Role: Primary Care Nurse Name: Kelly Hernandez RN Position: [facility] RN Member Role: Primary Care Nurse Name: Parris Zuluaga RN Position: [facility] RN Member Role: Primary Care Nurse Care Team Related Persons Name: ZENAIDA FLORES Address: [place] [address] Name: TIA RIVERS Address: [place] [address] Name: JOHANN RETANA Address: [place] [address]
--- OUTSIDE RECORDS SUMMARY | 2023-10-14 16:32 | XMS_ITS | Continuity of Care Document ---
Author Organization [facility] Address [address] [place] [address]- Care Team Providers Care Dice Table Operator Name Role Phone Caitlyn Bowie MD Primary Care Physician [facility] Date(s): 12/16/22 - 01/15/23 [facility] [address] [place], [place] [address] Allergies, Adverse Reactions, Alerts Substance Reaction [...] Care Team Personnel Name: Val Wynne Position: [facility] Onco RN Member Role: Primary Care Nurse Name: Karen Pittman RN Position: [facility] RN Member Role: Primary Care Nurse Name: Shilpi Mattson Position: Reference Physician Member Role: Primary Care Nurse Address: Address: [address] [place] [address]- [place] Name: Toyin Doherty RN Position: [facility] RN Member Role: Primary Care Nurse Name: Eben Hernandez NP Position: [facility] Associate Professional Member Role: Lifetime Consulting Provider Address: Address: [address] [place] [address]- [place] Name: Alejandrina Turner RN Position: [facility] RN Member Role: Primary Care Nurse Name: Zoraida Felix RN Position: [facility] RN Member Role: Primary Care Nurse Name: Daphne Hooker RN Position: [facility] RN Member Role: Primary Care Nurse Name: Nasima Gonzalez RN Position: [facility] RN Supv Member Role: Primary Care Nurse Name: Caitlyn Bowie MD Position: [facility] Physician - Primary Care Member Role: PCP Address: Address: [address] [place] [address]- [place] Name: Kiki Abdi RN Position: [facility] RN Member Role: Primary Care Nurse Name: Marry Reza Position: [facility] RN Member Role: Primary Care Nurse Name: Veronica Hurst MA Position: [facility] SALLY MA Member Role: Lifetime Consulting Physician Name: Maddie Herrera RN Position: [facility] AMB Nurse Member Role: Primary Care Nurse Name: Raegan Baptiste RN Position: [facility] RN Member Role: Primary Care Nurse Name: Svitlana Marcum RN Position: [facility] AMB Nurse Member Role: Primary Care Nurse Name: She Pool Position: [facility] RN Member Role: Primary Care Nurse Name: Kaila Latham RN Position: [facility] RN Member Role: Primary Care Nurse Name: Julio C Bahena Position: [facility] RN Member Role: Primary Care Nurse Name: Nasima Heredia RN Position: [facility] RN Member Role: Primary Care Nurse Name: Katherine Nixon PharmD Position: [facility] Associate Professional Member Role: Lifetime Consulting Provider Address: Address: [address] [facility] [place] [address]- [place] Name: Daphne Barton RN Position: [facility] RN Member Role: Primary Care Nurse Name: Katherine Long RN Position: [facility] RN Member Role: Primary Care Nurse Name: Norma Serrano RN Position: [facility] RN Member Role: Primary Care Nurse Name: Seven Kelly RN Position: [facility] RN Member Role: Primary Care Nurse Name: Fani Perez RN Position: [facility] RN Member Role: Primary Care Nurse Name: Hattie Brewster RN Position: [facility] RN Member Role: Primary Care Nurse Name: Yudith Rothman RN Position: [facility] Onco RN Member Role: Primary Care Nurse Name: Kelly Hernandez RN Position: [facility] RN Member Role: Primary Care Nurse Name: Parris Zuluaga RN Position: [facility] RN Member Role: Primary Care Nurse Care Team Related Persons Name: ZENAIDA FLORES Address: [place], [place] Name: TIA RIVERS Address: [place] [address] Name: JOHANN RETANA Address: [place], [place]
--- OUTSIDE RECORDS SUMMARY | 2023-10-14 16:33 | XMS_ITS | Continuity of Care Document ---
Author Organization [facility] Address [address] [place] [address]- Care Team Providers Care Overlock Sewing Machine Operator Name Role Phone Caitlyn Bowie MD Primary Care Physician [phone] [facility]counter [facility] Date(s): 04/19/21 - 05/19/21 [facility] [address] [place] [address]- Allergies, Adverse Reactions, Alerts Substance Reaction Severity Status ciprofloxacin Active gentamicin Active erythromycin Active penicillin 1 Active vancomycin Active ipratropium Active morphine Active barium sulfate Active sulfa drugs Active iodinated radiocontrast dyes Active Voltaren Active Zithromax Active Novocain Active Biaxin Active Gastrografin Active Levaquin Avocado Active Avelox Active Bee Stings Active Contrast Dye Active Mold Active Avocado Active Flagyl Active Shrimp Active 1Allergy testing doen 09/26 [...]
--- OUTSIDE RECORDS SUMMARY | 2023-10-14 16:33 | XMS_ITS | Continuity of Care Document ---
Author Organization [facility] Address [address] [place] [address]- Care Team Providers Care Oil Speculator Name Role Phone Caitlyn Bowie MD Primary Care Physician [facility] Date(s): 09/29/21 - 10/29/21 [facility] [address] [place] [id number] Allergies, Adverse Reactions, Alerts Substance [...]
--- OUTSIDE RECORDS SUMMARY | 2023-10-14 16:33 | XMS_ITS | Continuity of Care Document ---
Author Organization [facility] Address [address] [place] [address]- Care Team Providers Care Production Metal Sprayer Name Role Phone Caitlyn Bowie MD Primary Care Physician [facility] Date(s): 09/07/23 - 10/07/23 [facility] [address] [place], [place] [address] Allergies, Adverse Reactions, Alerts Substance Reaction Severity Status ciprofloxacin Active penicillin 1 Active vancomycin Active busPIRone Feeling of throat ti ghtness Headache Dizziness Active ipratropium Active barium sulfate Active gentamicin Active clindamycin throat tightening Active erythromycin Active morphine Active Biaxin Active sulfa drugs Active iodinated radiocontrast dyes [...] Care Team Personnel Name: Val Wynne Position: [facility] Onco RN Member Role: Primary Care Nurse Name: Karen Pittman RN Position: [facility] RN Member Role: Primary Care Nurse Name: Shilpi Mattson Position: Reference Physician Member Role: Primary Care Nurse Address: Address: [address] [place] [address]- Name: Toyin Doherty RN Position: [facility] RN Member Role: Primary Care Nurse Name: Eben Hernandez NP Position: [facility] Associate Professional Member Role: Lifetime Consulting Provider Address: Address: [address] [place] [address]- Name: Alejandrina Turner RN Position: [facility] RN Member Role: Primary Care Nurse Name: Zoraida Felix RN Position: [facility] ED RN W/OE and Tasks Member Role: Primary Care Nurse Name: Jaye Harley Position: [facility] Stack Supervisor Member Role: Railway Switch Operator Name: Daphne Hooker RN Position: [facility] RN Member Role: Primary Care Nurse Name: Caitlyn Bowie MD Position: [facility] Physician - Primary Care Member Role: PCP Address: Address: [address] [place] [address]- Name: Kiki Abdi RN Position: [facility] RN Member Role: Primary Care Nurse Name: Marry Reza Position: [facility] RN Member Role: Primary Care Nurse Name: Veronica Hurst MA Position: [facility] AMB [place] Member Role: Lifetime Consulting Physician Name: Maddie Herrera RN Position: [facility] AMB Nurse Member Role: Primary Care Nurse Name: Yudith Herrera RN Position: [facility] Onco RN Member Role: Primary Care Nurse Name: Raegan Baptiste RN Position: [facility] RN Member Role: Primary Care Nurse Name: She Pool Position: [facility] RN Member Role: Primary Care Nurse Name: Kaila Latham RN Position: [facility] RN Member Role: Primary Care Nurse Name: Julio C Bahena Position: [facility] RN Member Role: Primary Care Nurse Name: Nasima Heredia RN Position: [facility] RN Member Role: Primary Care Nurse Name: Katherine Nixon PharmD Position: [facility] Associate Professional Member Role: Lifetime Consulting Provider Address: Address: [address] [place] [address]- Name: Daphne Barton RN Position: [facility] RN Member Role: Primary Care Nurse Name: Katherine Long RN Position: [facility] RN Member Role: Primary Care Nurse Name: Norma Serrano RN Position: [facility] RN Member Role: Primary Care Nurse Name: Seven Kelly RN Position: [facility] ED RN W/OE and Tasks Member Role: Primary Care Nurse Name: Fani Perez RN Position: [facility] RN Member Role: Primary Care Nurse Name: Hattie Brewster RN Position: [facility] RN Member Role: Primary Care Nurse Name: Kelly Hernandez RN Position: [facility] RN Member Role: Primary Care Nurse Name: Pallavi Wylie LPN Position: [facility] RN Member Role: Primary Care Nurse Name: Parris Zuluaga RN Position: [facility] RN Member Role: Primary Care Nurse Care Team Related Persons Name: ZENAIDA FLORES Address: [place] [address] Name: TIA RIVERS Address: [place] [address] Name: JOHANN RETANA Address: [place] [address]
--- OUTSIDE RECORDS SUMMARY | 2023-10-14 16:33 | XMS_ITS | Continuity of Care Document ---
Author Organization [facility] Address [address] [place] [address]- Care Team Providers Care Optical Fabrication Technician Name Role Phone Caitlyn Bowie MD Primary Care Physician Encounter [facility] Date(s): 11/16/21 - 11/23/21 [facility] [address] [place] [address]- Attending Physician: Anish Neil MD Admitting Physician: Anish Neil MD Referring Physician: Caitlyn Bowie MD Allergies, Adverse Reactions, Alerts Substance Reaction Severity Status ciprofloxacin Active barium sulfate Active Voltaren Active Zithromax [...] day, 0 Refills, Maintenance, 11/06/21 12:44:00 EDT, [place], Partialfill upon patient request if the prescription is for a schedule II opioid drug. Start Date: 11/06/21 Status: Ordered furosemide 40 mg oral tablet 40 mg, 1, tablet, By Mouth, Daily, # 30 tablet, Refills 0, Maintenance, 11/18/21 10:35:00 EDT, Partial fill upon patient request if [...] Refills, Maintenance, 11/09/21 9:33:00 EDT, EC Capsule, [facility], Partial fill upon patient request if [...] oldest [Reference Range]: 1 Height 160 cm (11/16/21 7:57 AM) Weight 58.51 kg (11/16/21 7:57 AM) Oxygen Saturation [94-100 %] 98 % (11/16/21 7:57 AM) Pulse Rate [55-90 bpm] 83 bpm (11/16/21 7:57 AM) Body Mass Index [18.5-24.99] 22.86 (11/16/21 7:57 AM) Blood Pressure [90-138/55-84 mm Hg] 108/ 50mm Hg (11/16/21 7:57 AM) Mode of Delivery (Oxygen) Room air (11/16/21 7:57 AM) Blood pressure sites Arm, left (11/16/21 7:57 AM) Weight Obtained Via Patient/family state d (11/16/21 7:57 AM) Social History Social History Type Response Smoking Status Never smoker; Tobacc o user in household: No entered on: 04/05/17 Sex
--- OUTSIDE RECORDS SUMMARY | 2023-10-14 16:33 | XMS_ITS | Continuity of Care Document ---
Author Organization [facility] Address [address] [place] [address]- Care Team Providers Care Contracts Advisor Name Role Phone Caitlyn Bowie MD Primary Care Physician [phone] [facility] Date(s): 08/26/21 - 09/25/21 [facility] [address] [place], [place] [address] Allergies, Adverse Reactions, Alerts Substance [...]
--- OUTSIDE RECORDS SUMMARY | 2023-10-14 16:33 | XMS_ITS | Continuity of Care Document ---
Author Organization [facility] Address [address] [place] [address]- Care Team Providers Care Hazardous Materials Driver Name Role Phone Caitlyn Bowie MD Primary Care Physician Encounter [facility] Date(s): 03/10/21 - 04/09/21 [facility] [address] [place] [address]- Allergies, Adverse Reactions, Alerts Substance Reaction Severity [...] times a day, Dr. primo Renee at [place], per pt, # 30 tablet, 0 Refills, [...]
--- OUTSIDE RECORDS SUMMARY | 2023-10-14 16:33 | XMS_ITS | Continuity of Care Document ---
Author Organization [facility] Address [address] [place] [address]- Care Team Providers Care Commercial Lines Underwriter Name Role Phone Caitlyn Bowie MD Primary Care Physician [phone] [facility] Date(s): 08/29/22 - 09/28/22 [facility] [address] [place] [address]- [place] Allergies, Adverse Reactions, Alerts Substance Reaction [...] 8/21/16 Given pneumococcal 13-valent vaccine 04/21/14 Given Not [...] cm, 09/12/22 11:14:00 EST, Height, 57.1, kg, 2... Start Date: 09/12/22 Stop Date: 02/09/23 Status: [...] Care Team Personnel Name: Val Wynne Position: [facility] Onco RN Member Role: Primary Care Nurse Name: Karen Pittman RN Position: S RN Member Role: Primary Care Nurse Name: Shilpi Mattson Position: Reference Physician Member Role: Primary Care Nurse Address: Address: [address] [place] [address] [address] [place] [address]- [place] Name: Toyin Doherty RN Position: [facility] RN Member Role: Primary Care Nurse Name: Eben Hernandez NP Position: [facility] Associate Professional Member Role: Lifetime Consulting Provider Address: Address: [address] [place] [address]- Name: Alejandrina Turner RN Position: [facility] RN Member Role: Primary Care Nurse Name: Zoraida Felix RN Position: [facility] RN Member Role: Primary Care Nurse Name: Daphne Hooker RN Position: [facility] RN Member Role: Primary Care Nurse Name: Nasima Gonzalez RN Position: [facility] RN Supv Member Role: Primary Care Nurse Name: Caitlyn Bowie MD Position: [facility] Primary Care Physician Member Role: PCP Address: Address: [address] [place] [address]- Name: Sheeba García Position: [facility] RN Member Role: Primary Care Nurse Name: Kiki Abdi RN Position: [facility] RN Member Role: Primary Care Nurse Name: Marry Reza Position: [facility] RN Member Role: Primary Care Nurse Name: Veronica Hurst [place] Position: [facility] PCO RN Member Role: Lifetime Consulting Physician Name: Maddie Herrera RN Position: [facility] RN Member Role: Primary Care Nurse Name: Raegan Baptiste RN Position: [facility] RN Member Role: Primary Care Nurse Name: Svitlana Marcum RN Position: [facility] AMB Nurse Member Role: Primary Care Nurse Name: She Pool Position: [facility] RN Member Role: Primary Care Nurse Name: Kaila Latham RN Position: [facility] RN Member Role: Primary Care Nurse Name: Julio C Bahena Position: [facility] RN Member Role: Primary Care Nurse Name: Nasima Heredia RN Position: [facility] RN Member Role: Primary Care Nurse Name: Katherine Nixon PharmD Position: [facility] Associate Professional Member Role: Lifetime Consulting Provider Address: Address: [address] [place] [address] Name: Daphne Barton RN Position: [facility] RN Member Role: Primary Care Nurse Name: Katherine Long RN Position: [facility] RN Member Role: Primary Care Nurse Name: Norma Serrano RN Position: [facility] RN Member Role: Primary Care Nurse Name: Seven Kelly RN Position: [facility] RN Member Role: Primary Care Nurse Name: Fani Perez RN Position: [facility] RN Member Role: Primary Care Nurse Name: Hattie Brewster RN Position: [facility] RN Member Role: Primary Care Nurse Name: Yudith Rothman RN Position: [facility] Onco RN Member Role: Primary Care Nurse Name: Kelly Hernandez RN Position: [facility] RN Member Role: Primary Care Nurse Name: Parris Zuluaga RN Position: [facility] RN Member Role: Primary Care Nurse Care Team Related Persons Name: ZENAIDA FLORES Address: [place] [address] Name: TIA RIVERS Address: home [address] [place] [address] Name: JOHANN RETANA Address: [place] [address]
--- OUTSIDE RECORDS SUMMARY | 2023-10-14 16:33 | XMS_ITS | Continuity of Care Document ---
Author Organization [facility] Address [address] [place] [address]- Care Team Providers Care Mrp Controller Name Role Phone Caitlyn Bowie MD Primary Care Physician [facility] Date[facility]s): 08/24/21 - 09/23/21 [facility] [address] [place], [place] [address] Allergies, Adverse Reactions, Alerts Substance [...] Date: 07/03/21 Status: Ordered elderberry oral liquid 0 Refills, [...] is for... Start Date: 05/07/21 Status: Ordered metoprolol 50 mg oral tablet, [...]
--- OUTSIDE RECORDS SUMMARY | 2023-10-14 16:33 | XMS_ITS | Continuity of Care Document ---
Author Organization [facility] Address [address] [place] [address]- Care Team Providers Care Sewer Hand Name Role Phone Caitlyn Bowie MD Primary Care Physician Encounter [facility] Date(s): 09/22/22 - 10/22/22 [facility] [address] [place] [address]- Allergies, Adverse Reactions, Alerts Substance Reaction Severity [...] Care Team Personnel Name: Val Wynne Position: [facility] Onco RN Member Role: Primary Care Nurse Name: Karen Pittman RN Position: [facility] RN Member Role: Primary Care Nurse Name: Shilpi Mattson Position: Reference Physician Member Role: Primary Care Nurse Address: Address: [address] [place] [address] [place] [address]- [place] Name: Toyin Doherty RN Position: [facility] RN Member Role: Primary Care Nurse Name: Eben Hernandez NP Position: [facility] Associate Professional Member Role: Lifetime Consulting Provider Address: Address: [address] [place] [address]- Name: Alejandrina Turner RN Position: [facility] RN Member Role: Primary Care Nurse Name: Zoraida Felix RN Position: [facility] RN Member Role: Primary Care Nurse Name: Daphne Hooker RN Position: [facility] RN Member Role: Primary Care Nurse Name: Nasima Gonzalez RN Position: [facility] RN Supv Member Role: Primary Care Nurse Name: Caitlyn Bowie MD Position: [facility] Primary Care Physician Member Role: PCP Address: Address: [address] [place] [address]- [place] Name: Sheeba García Position: [facility] RN Member Role: Primary Care Nurse Name: Kiki Abdi RN Position: [facility] RN Member Role: Primary Care Nurse Name: Marry Reza Position: [facility] RN Member Role: Primary Care Nurse Name: Veronica Hurst [place] Position: [facility] PCO RN Member Role: Lifetime Consulting Physician Name: Maddie Herrera RN Position: [facility] RN Member Role: Primary Care Nurse Name: Raegan Baptiste RN Position: [facility] RN Member Role: Primary Care Nurse Name: Svitlana Marcum RN Position: [facility] AMB Nurse Member Role: Primary Care Nurse Name: She Pool Position: [facility] RN Member Role: Primary Care Nurse Name: Kaila Latham RN Position: [facility] RN Member Role: Primary Care Nurse Name: Julio C Bahena Position: [facility] RN Member Role: Primary Care Nurse Name: Nasima Heredia RN Position: [facility] RN Member Role: Primary Care Nurse Name: Katherine Nixon PharmD Position: [facility] Associate Professional Member Role: Lifetime Consulting Provider Address: Address: [address] [place] [address] Name: Daphne Barton RN Position: [facility] RN Member Role: Primary Care Nurse Name: Katherine Long RN Position: [facility] RN Member Role: Primary Care Nurse Name: Norma Serrano RN Position: [facility] RN Member Role: Primary Care Nurse Name: Seven Kelly RN Position: [facility] RN Member Role: Primary Care Nurse Name: Fani Perez RN Position: [facility] RN Member Role: Primary Care Nurse Name: Hattie Brewster RN Position: [facility] RN Member Role: Primary Care Nurse Name: Yudith Rothman RN Position: [facility] Onco RN Member Role: Primary Care Nurse Name: Kelly Hernandez RN Position: [facility] RN Member Role: Primary Care Nurse Name: Parris Zuluaga RN Position: [facility] RN Member Role: Primary Care Nurse Care Team Related Persons Name: ZENAIDA FLORES Address: [place], [place] Name: TIA RIVERS Address: [address] [address] Name: JOHANN RETANA Address: [place], [place]
--- OUTSIDE RECORDS SUMMARY | 2023-10-14 16:34 | XMS_ITS | Continuity of Care Document ---
Author Organization [facility] Address [address] [address]- Care Team Providers Care Food Technologist Name Role Phone Peewee STARK, Sharon Primary Care Physician ( [phone] Encounter [facility] Date(s): 01/06/20 - 02/12/20 [facility] [address] [address] [facility] Attending Physician: Not on Staff, Attending MD Allergies, Adverse Reactions, Alerts Substance Reaction [...] By Mouth, Daily, Dr. primo Renee at [place], # 30 tablet, 0 Refills, Maintenance, 01/26/18 16:36:23 EDT, ER Tablet Start Date: 01/26/18 Status: Ordered metroNIDAZOLE 500 mg oral tablet 1 tablet = 500 mg, By Mouth, Every 8 hours, may take with food to minimize abdominal discomfort, # 18 tablet, 0 Refills, Maintenance, 09/06/19 14:42:00 EST, Tablet, [facility], 160, cm,09/06/19 7:35:00 EST, Height, 60.3, [...]
--- OUTSIDE RECORDS SUMMARY | 2023-10-14 16:34 | XMS_ITS | Continuity of Care Document ---
Author Organization [facility] Address [address] [address]- Care Team Providers Care Cattle Brander Name Role Phone Brennan Burnett MD Primary Care Physician [phone] [facility]counter [facility] Date(s): 10/30/20 - 11/29/20 [facility] [address] [place] [id number] Allergies, Adverse Reactions, Alerts Substance [...] By Mouth, Daily, Dr. primo Renee at [place], # 30 tablet, 0 Refills, Maintenance, 01/26/18 [...]
--- OUTSIDE RECORDS SUMMARY | 2023-10-14 16:34 | XMS_ITS | Continuity of Care Document ---
Author Organization [facility] Address [address] [place] [address]- Care Team Providers Care Sorting Machine Attendant Name Role Phone Caitlyn Bowie MD Primary Care Physician [phone] Encounter [facility] Date(s): 06/01/21 - 07/01/21 [facility] [address] [place] [id number] Allergies, Adverse [...] EDT, Route to Pharmacy Electronically, [id number], Partial fill upon patient request [...] Start Date: 01/26/18 Status: Ordered nystatin topical [id number] u/gm powder 1 application, Topically, 3 times [...]
--- OUTSIDE RECORDS SUMMARY | 2023-10-14 16:34 | XMS_ITS | Continuity of Care Document ---
Author Organization [facility] Address [address] [place] [address]- Care Team Providers Care Staff Antisubmarine Officer Name Role Phone Caitlyn Bowie MD Primary Care Physician Encounter [facility] Date(s): 01/31/23 - 03/02/23 [facility] [address] [place], [place] [address] Allergies, Adverse Reactions, Alerts Substance Reaction Severity Status ciprofloxacin Active barium sulfate Active iodinated radiocontrast dyes Active Voltaren Active gentamicin Active erythromycin Active penicillin 1 Active vancomycin Active busPIRone Feeling of throat ti ghtness Headache Dizziness Active ipratropium Active morphine Active sulfa drugs Active Gastrografin Active Levaquin Avocado Active Zithromax [...] EDT, ; Start Date: 03/22/22 Status: Ordered baclofen 10 mg oral tablet See Instructions, PRN, 1/2 to 1 tablet twice daily for pain as needed, # 30 tablet, Refills 0, Tot.Refills 0, Maintenance, Pain , Moderate, 02/22/23 12:47:00 EDT, Instructions Replace Required Details, Route to Pharmacy Electronically, [facility] Start Date: 02/22/23 Status: Ordered diazepam 5 mg oral tablet [...] opioid drug. Start Date: 01/25/23 Status: Ordered Metoprolol Succinate ER 25 mg [...] Care Team Personnel Name: Val Wynne Position: [facility] Onco RN Member Role: Primary Care Nurse Name: Karen Pittman RN Position: [facility] RN Member Role: Primary Care Nurse Name: Shilpi Mattson Position: Reference Physician Member Role: Primary Care Nurse Address: Address: [address] [place] [address]- [place] Name: Toyin Doherty RN Position: [facility] RN Member Role: Primary Care Nurse Name: Eben Hernandez NP Position: [facility] Associate Professional Member Role: Lifetime Consulting Provider Address: Address: [address] [place] [address]- Name: Alejandrina Turner RN Position: [facility] RN Member Role: Primary Care Nurse Name: Zoraida Felix RN Position: [facility] RN Member Role: Primary Care Nurse Name: Daphne Hooker RN Position: [facility] RN Member Role: Primary Care Nurse Name: Nasima Gonzalez RN Position: [facility] RN Suprodney Member Role: Primary Care Nurse Name: Caitlyn Bowie MD Position: [facility] Physician - Primary Care Member Role: PCP Address: Address: [address] [place] [address]- [place] Name: Kiki Abdi RN Position: [facility] RN Member Role: Primary Care Nurse Name: Marry Reza Position: [facility] RN Member Role: Primary Care Nurse Name: Veronica Hurst [place] Position: [facility] AMB [place] Member Role: Lifetime Consulting Physician Name: Maddie Herrera RN Position: [facility] AMB Nurse Member Role: Primary Care Nurse Name: Raegan Baptiste RN Position: [facility] RN Member Role: Primary Care Nurse Name: She Pool Position: [facility] RN Member Role: Primary Care Nurse Name: Kaila Latham RN Position: [facility] RN Member Role: Primary Care Nurse Name: Julio C Bahena Position: [facility] RN Member Role: Primary Care Nurse Name: Nasima Heredia RN Position: [facility] RN Member Role: Primary Care Nurse Name: Katherine Nixon PharmD Position: [facility] Associate Professional Member Role: Lifetime Consulting Provider Address: Address: [address] [place] [address] Name: Daphne Barton RN Position: [facility] RN Member Role: Primary Care Nurse Name: Katherine Long RN Position: [facility] RN Member Role: Primary Care Nurse Name: Norma Serrano RN Position: [facility] RN Member Role: Primary Care Nurse Name: Seven Kelly RN Position: [facility] RN Member Role: Primary Care Nurse Name: Fani Perez RN Position: [facility] RN Member Role: Primary Care Nurse Name: Hattie Brewster RN Position: [facility] RN Member Role: Primary Care Nurse Name: Yudith Rothman RN Position: [facility] Onco RN Member Role: Primary Care Nurse Name: Kelly Hernandez RN Position: [facility] RN Member Role: Primary Care Nurse Name: Parris Zuluaga RN Position: [facility] RN Member Role: Primary Care Nurse Care Team Related Persons Name: ZENAIDA FLORES Address: [place], [place] Name: TIA RIVERS Address: [place] [address] Name: JOHANN RETANA Address: [place], [place]
--- OUTSIDE RECORDS SUMMARY | 2023-10-14 16:34 | XMS_ITS | Continuity of Care Document ---
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 Name Role Phone Caitlyn Bowie MD Primary Care Physician [phone] En[place] [facility] Date[place]s): 07/14/22 - 07/21/22 [facility] [address] [place] [address]- Encounter Diagnosis CHF - Congestive heart failure(Discharge Diagnosis) - 07/14/22 Coronary artery disease(Discharge Diagnosis) - 07/14/22 HTN (hypertension)(Discharge Diagnosis) - 07/14/22 Antiphospholipid syndrome(Discharge Diagnosis) - 07/14/22 Attending Physician: Caitlyn Bowie MD Allergies, Adverse Reactions, Alerts Substance Reaction Severity Status ciprofloxacin Active gentamicin Active busPIRone Feeling of throat ti ghtness Headache Dizziness Active morphine Active barium sulfate Active sulfa drugs Active iodinated radiocontrast dyes Active Novocain Active erythromycin Active penicillin 1 Active vancomycin Active ipratropium Active Voltaren Active Zithromax Active Flagyl Active Gastrografin Active Levaquin Avocado Active Biaxin Active Avelox Active Bee Stings [...] Physician Stop, 09/30/21 13:21:00 EDT, [facility], 160, cm, 09/24/21 16:15:00 EDT, Height, 57.5, kg, 09/24/21 1:23:00 EDT... Start Date: 09/30/21 Status: Ordered mirtazapine 7.5 mg oral tablet 1 tablet = 7.5 mg, By Mouth, Daily at bedtime, # 30 tablet, 1 Refills, Maintenance, 06/28/22 14:17:00 EST, [facility], Partial fill upon patient request if the prescription is for aschedule II opioid drug., 160, cm, 06/28/22 11:54:00 ES... Start Date: 06/28/22 Stop Date: 08/27/22 Status: Ordered omeprazole 40 mg oral enteric coated capsule 1 capsule = 40 mg, By Mouth, Daily, PRN as needed, Maintenance, 05/16/22 11:22:00 EST, [facility] Capsule, ; Start Date: 05/16/22 Status: Ordered predniSONE 10 mg oral tablet 1 tablet = 10 mg, By Mouth, Daily, Further refills through Pulmonology., # 10 tablet, 0 Refills, Maintenance, 07/08/22 16:26:00 EST, Tablet, [facility], Partial fill upon patient request if the prescription is for a schedule II opioid . Start Date: 07/08/22 Stop Date: 07/18/22 Status: Ordered rosuvastatin 10 mg oral tablet 1 tablet = 10 mg, By Mouth, Every Monday, Monday and Monday Start Date: 04/21/21 Status: Ordered sildenafil 20 mg oral tablet TAKE ONE TABLET BY MOUTH THREE TIMES A DAY - ADMINISTER DOSES AT LEAST 4 -6 HOURS APART Start Date: 07/14/22 Status: Ordered Singulair 10 mg oral tablet 10 mg, 1, tablet, By Mouth, Daily in PM, Dr. Kelly, Refills 0, Maintenance, 08/24/17 13:50:25 EST Start Date: 08/24/17 Status: Ordered Toprol XL 25 mg oral tablet, extended release 25 mg, 1, tablet, By Mouth, 2 times a day, Refills 0, Maintenance, 09/24/21 11:35:00 EDT, ; Start Date: 09/24/21 Status: Ordered traZODone 50 mg oral tablet [...] EDT, ; Start Date: 09/24/21 Status: Ordered warfarin 1 mg oral tablet See Instructions, take 1-2 tablets By Mouth Daily as directed by the anticoagulation clinic, # 180 tablet, 2 Refills, Maintenance, 06/15/22 11:59:00 EST, [facility], Partial fill upon patient request if the prescription is for a schedul... Start Date: 06/15/22 Status: Ordered Xyzal 5 mg oral tablet [...] thromboembolism) Confirmed Active 1left eye 2lower extrem Diagnosis Diagnosis Type Effective Dates Health Status Clinical Service Informant CHF - Congestive heart failure Discharge Diagnosis 07/14/22 Coronary artery disease Discharge Diagnosis 07/14/22 HTN (hypertension) Discharge Diagnosis 07/14/22 Antiphospholipid syndrome Discharge Diagnosis 07/14/22 Vital Signs Most recent to oldest [Reference Range]: 1 Height 160 cm (07/14/22 11:07 AM) Weight 60.9 kg (07/14/22 11:07 AM) Oxygen Saturation [94-100 %] 95 % (07/14/22 11:07 AM) Pulse Rate [55-90 bpm] 85 bpm (07/14/22 11:07 AM) Body Mass Index [18.5-24.99 kg/m2] 23.79 kg/m2 (07/14/22 11:07 AM) Blood Pressure [90-138/55-84 mm Hg] 100/ 50mm Hg (07/14/22 11:07 AM) Temperature [96.8-100.4 DegF] 97.4 DegF (07/14/22 11:07 AM) Mode of Delivery (Oxygen) Room air (07/14/22 11:07 AM) Blood pressure sites Arm, left (07/14/22 11:07 AM) Temperature Route Temporal (07/14/22 11:07 AM) Weight Obtained Via Standing scale (07/14/22 11:07 AM) Social History Social History Type Response Smoking Status Never smoker; Tobacc o user in household: No entered on: 04/05/17 Sex Note * Jhon Cruz: PERFORM, SIGN, VERIFY Event Display: Patient Education/Instruction Authored Date: [id number] [facility] Clinical Summary Name CINDA WATSON Age 77 Years 1945 PCP Caitlyn Bowie MD PCP Visit Date 07/14/2022 10:58:00 Additional Instructions: Scheduled Appointments?? Future Appointments ?[facility] ?[address]??[place],??[place],??[address] ?Phone:??[phone]?Fax:??-- ?Appt. Date:??07/20/2022?2:00 PM ?Scheduled Provider:??[facility] ?[facility] ?[address]??[place],??[place],??[address] ?Phone:??[phone]?Fax:??-- ?Appt. Date:??07/20/2022?2:30 PM ?Scheduled Provider:??[facility] ?[facility] ?[address],??[place],??[address] ?Phone:??--?Fax:??-- ?Appt. Date:??08/11/2022?11:00 AM ?Scheduled Provider:??Azeb STARK , Caitlyn Thompson Follow-Up Instructions ?? Diagnosis Medications: Please continue your medications until treatment is completed or stopped by your provider. Discuss any questions related to medications with your provider. Medications to Continue Taking That Have Changed These medications were not printed or sent to your pharmacy - Trazodone (traZODone 50 mg oral tablet) 2 tab(s) Oral Daily at Bedtime. Dr. Kelly. Refills: 0. Next Dose: Medications to Continue [...] Dose: Diazepam (diazepam 5 mg oral tablet) 1/2-1 tablet Oral twice a day as needed anxiety & sleep. Next Dose: Docusate (docusate sodium 100 mg [...] Inhalation twice a day. Next Dose: Furosemide (furosemide 20 mg oral tablet) 1 tab(s) Oral Daily as needed leg swelling. Next Dose: Furosemide (furosemide 20 mg oral tablet) 1 tab(s) Oral Daily. Next Dose: levocetirizine (Xyzal 5 mg oral tablet) 1 tab(s) Oral Daily in PM. allergies. Refills: 0. Next Dose: Levothyroxine (levothyroxine 25 mcg (0.025 mg) oral capsule) 1 capsule Oral Daily. Monday through Monday. Next Dose: Levothyroxine (levothyroxine 50 mcg (0.05 mg) oral capsule) 1 capsule Oral Daily. Monday & Monday's. Next Dose: Meclizine (meclizine 25 mg oral tablet) can take extra 25mg for up to four per day; as needed as needed for dizziness. Refills: 4. Next Dose: Metoprolol (Toprol XL 25 mg oral tablet, extended release) 1 tab(s) Oral twice a day. Next Dose: Mirtazapine (mirtazapine 7.5 mg oral tablet) 1 tab(s) Oral Daily at Bedtime for 30 Days. Refills: 1. Next Dose: Montelukast (Singulair 10 mg oral tablet) 1 tab(s) Oral Daily in PM. Dr. Kelly. Next Dose: Multivitamin (B-Complex SR) 1 tab(s) Oral Daily. Next Dose: Omeprazole (omeprazole 40 mg oral enteric coated capsule) 1 capsule Oral Daily as needed. Next Dose: PredniSONE (predniSONE 10 mg oral tablet) 1 tab(s) Oral Daily for 10 Days. Further refills through Pulmonology.. Refills: 0. Next Dose: Rosuvastatin (rosuvastatin 10 mg oral tablet) 1 tab(s) Oral Monday, Monday and Monday. Next Dose: Sildenafil (sildenafil 20 mg oral tablet) TAKE ONE TABLET BY MOUTH THREE TIMES A DAY - ADMINISTER DOSES AT LEAST 4 -6 HOURS APART. Next Dose: Warfarin (warfarin 1 mg oral tablet) take 1-2 tablets By Mouth Daily as directed by the anticoagulation clinic. Refills: 2. Next Dose: Warfarin (warfarin 1 mg oral tablet) 2 tab(s) Oral Daily. (Cinda want's to test her blood today, changes with INR). Next Dose: No Longer Take the Following Medications Lanolin-Mineral Oil Topical (lanolin-mineral oil topical lotion) USE TWICE DAILY. Refills: 0. Allergy Info:?? Avocado; Shrimp; Mold; Contrast Dye; Bee Stings; Avelox; Levaquin; Gastrografin; Biaxin; Novocain; Flagyl; Zithromax; Voltaren; iodinated radiocontrast dyes; sulfa drugs; barium sulfate; morphine; ipratropium; busPIRone; vancomycin; penicillin; erythromycin; gentamicin; ciprofloxacin Medications Given This Visit Future Orders ?No future orders Vital Signs Height 160 cm Weight 60.9 kg BMI 23.79 kg/m2 Blood Pressure 100 mm Hg/50 mm Hg Temperature 97.4 DegF Pulse Rate 85 bpm Respiratory Rate 02 Sat Mode of Delivery 95 %/Room air You can now view a summary of your hospital visit from the comfort of your home through a free online portal called [employer]. [employer] is a website that allows you to securely view your medical information including discharge summary, medications and follow-up visits. ??You can alsosend a secure electronic message to your doctor???s office to request appointments, renew medications or just ask a question. You can enroll at [email or web address] or register during your next office visit. [...] primary care provider, you may find a [facility] provider by calling [facility] Link at [phone]. For information about the plan of care [...] Care Team Personnel Name: Val Wynne Position: [facility] Onco RN Member Role: Primary Care Nurse Name: Karen Pittman RN Position: S RN Member Role: Primary Care Nurse Name: Shilpi Mattson Position: Reference Physician Member Role: Primary Care Nurse Address: Address: [address] [place] [address] [address] [place] [address]- Name: Toyin Doherty RN Position: [facility] RN Member Role: Primary Care Nurse Name: Eben Hernandez NP Position: [facility] Associate Professional Member Role: Lifetime Consulting Provider Address: Address: [address] [place] [address]- Name: Alejandrina Turner RN Position: [facility] RN Member Role: Primary Care Nurse Name: Zoraida Felix RN Position: [facility] RN Member Role: Primary Care Nurse Name: Daphne Hooker RN Position: [facility] RN Member Role: Primary Care Nurse Name: Nasima Gonzalez RN Position: [facility] RN Suprodney Member Role: Primary Care Nurse Name: Caitlyn Bowie MD Position: [facility] Primary Care Physician Member Role: PCP Address: Address: [address] [place] [address]- [place] Name: Sheeba García Position: S RN Member Role: Primary Care Nurse Name: Kiki Abdi RN Position: S RN Member Role: Primary Care Nurse Name: Marry Reza Position: S RN Member Role: Primary Care Nurse Name: Veronica Hurst [place] Position: [facility] RN Member Role: Lifetime Consulting Physician Name: Maddie Herrera RN Position: [facility] RN Member Role: Primary [...] Care Nurse Name: Katherine Nixon PharmD Position: [facility] Associate Professional Member Role: Lifetime Consulting Provider Address: Address: [address] [place] [address] Name: Daphne Barton RN Position: [facility] RN Member Role: Primary Care Nurse Name: Katherine Long RN Position: [facility] RN Member Role: Primary Care Nurse Name: Norma Serrano RN Position: [facility] RN Member Role: Primary Care Nurse Name: Aurea Kelly RN Position: [facility] RN Member Role: Primary Care Nurse Name: Seven Kelly RN Position: [facility] RN Member Role: Primary Care Nurse Name: Fani Perez RN Position: [facility] RN Member Role: Primary Care Nurse Name: Yudith Rothman RN Position: [facility] RN Member Role: Primary Care Nurse Name: Parris Zuluaga RN Position: [facility] RN Member Role: Primary Care Nurse Care Team Related Persons Name: ZENAIDA FLORES Address: [place], [place] Name: TIA RIVERS Address: home [address] [place] [address] Name: JOHANN RETANA Address: [place], [place]
--- OUTSIDE RECORDS SUMMARY | 2023-10-14 16:34 | XMS_ITS | Continuity of Care Document ---
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 Diagnosis) - 12/29/22 Deep vein thrombosis(Discharge Diagnosis) - 12/29/22 SVT (supraventricular tachycardia)(Discharge Diagnosis) - 12/29/22 HTN (hypertension)(Discharge Diagnosis) - 12/29/22 Thoracic compression fracture(Discharge Diagnosis) - 12/29/22 Attending Physician: Caitlyn Bowie MD Allergies, Adverse [...] EDT, ; Start Date: 03/22/22 Status: Ordered clindamycin 150 mg oral capsule 4 capsule = 600 mg, By Mouth, Daily, for 10 days, prior to dental procedure take with probiotic, # 40 capsule, 0 Refills, Acute 01/08/23 11:40:00 EDT, 12/29/22 11:40:00 EDT, Capsule, [facility], Partial fill upon patient request if the... 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 Discharge Diagnosis 12/29/22 Deep vein thrombosis Discharge Diagnosis 12/29/22 SVT (supraventricular tachycardia) Discharge Diagnosis 12/29/22 HTN (hypertension) Discharge Diagnosis 12/29/22 Thoracic compression fracture Discharge Diagnosis 12/29/22 Vital Signs Most recent to oldest [Reference Range]: 1 Height 158 cm (12/29/22 10:56 AM) Weight 60.1 kg (12/29/22 10:56 AM) Oxygen Saturation [94-100 %] 98 % (12/29/22 10:56 AM) Pulse Rate [55-90 bpm] 90 bpm (12/29/22 10:56 AM) Body Mass Index [18.5-24.99 kg/m2] 24.07 kg/m2 (12/29/22 10:56 AM) Blood Pressure [90-138/55-84 mm Hg] 110/ 54mm Hg (12/29/22 10:56 AM) Temperature [96.8-100.4 DegF] 98.2 DegF (12/29/22 10:56 AM) Mode of Delivery (Oxygen) Room air (12/29/22 10:56 AM) Blood pressure sites Arm, left (12/29/22 10:56 AM) Temperature Route Temporal (12/29/22 10:56 AM) Weight Obtained Via Standing scale (12/29/22 10:56 AM) Social History Social History Type Response Smoking Status Never smoker; Tobacc o user in household: No entered on: 04/05/17 Sex Female Patient Care team information Care Team Personnel Name: Val Wynne Position: [facility] Onco RN Member Role: Primary Care Nurse Name: Karen Pittman RN Position: S RN Member Role: Primary Care Nurse Name: Shilpi Mattson Position: Reference Physician Member Role: Primary Care Nurse Address: Address: [address] [place] [address]- [place] Name: Toyin Doherty RN Position: [facility] RN Member Role: Primary Care Nurse Name: Eben Hernandez NP Position: [facility] Associate Professional Member Role: Lifetime Consulting Provider Address: Address: [address] [place] [address]- Name: Alejandrina Turner RN Position: [facility] RN Member Role: Primary Care Nurse Name: Zoraida Felix RN Position: [facility] RN Member Role: Primary Care Nurse Name: Daphne Hooker RN Position: [facility] RN Member Role: Primary Care Nurse Name: Nasima Gonzalez RN Position: [facility] RN Supv Member Role: Primary Care Nurse Name: Caitlyn Bowie MD Position: [facility] Physician - Primary Care Member Role: PCP Address: Address: [address] [place] [address]- Name: Kiki Abdi RN Position: [facility] RN Member Role: Primary Care Nurse Name: Marry Reza Position: [facility] RN Member Role: Primary Care Nurse Name: Veronica Hurst [place] Position: [facility] SALLY [place] Member Role: Lifetime Consulting Physician Name: Maddie Herrera RN Position: [facility] AMB Nurse Member Role: Primary Care Nurse Name: Raegan Baptiste RN Position: [facility] RN Member Role: Primary Care Nurse Name: Svitlana Marcum RN Position: [facility] AMB Nurse Member Role: Primary Care Nurse Name: She Pool Position: [facility] RN Member Role: Primary Care Nurse Name: Kaila Latham RN Position: [facility] RN Member Role: Primary Care Nurse Name: Julio C Bahena Position: [facility] RN Member Role: Primary Care Nurse Name: Nasima Heredia RN Position: [facility] RN Member Role: Primary Care Nurse Name: Katherine Nixon PharmD Position: [facility] Associate Professional Member Role: Lifetime Consulting Provider Address: Address: [address] [place] [address] Name: Daphne Barton RN Position: [facility] RN Member Role: Primary Care Nurse Name: Katherine Long RN Position: [facility] RN Member Role: Primary Care Nurse Name: Norma Serrano RN Position: [facility] RN Member Role: Primary Care Nurse Name: Seven Kelly RN Position: [facility] RN Member Role: Primary Care Nurse Name: Fani Perez RN Position: [facility] RN Member Role: Primary Care Nurse Name: Hattie Brewster RN Position: [facility] RN Member Role: Primary Care Nurse Name: Yudith Rothman RN Position: [facility] Onco RN Member Role: Primary Care Nurse Name: Kelly Hernandez RN Position: [facility] RN Member Role: Primary Care Nurse Name: Parris Zuluaga RN Position: [facility] RN Member Role: Primary Care Nurse Care Team Related Persons Name: ZENAIDA FLORES Address: [place] [address] Name: TIA RIVERS Address: [place] [address] Name: JOHANN RETANA Address: [place] [address]
--- OUTSIDE RECORDS SUMMARY | 2023-10-14 16:34 | XMS_ITS | Continuity of Care Document ---
Author Organization [facility] ter Address [address] [place] [id number]- Care Team Providers Care Canal Driver Name Role Phone Caitlyn Bowie MD Primary Care Physician Encounter [facility] [place](s): 11/16/22 - 11/16/[address] [address]- Encounter Diagnosis Back pain(Final) - 11/16/22 Discharge Disposition: A-D/C Home Attending Physician: James Banda MD Admitting Physician: James Banda MD Referring Physician: Not on Staff, Referring [...] 180 tablet, 2 Refills, Maintenance, 06/15/22 11:59:00 [id number], Partial fill [...] Confirmed Active Vertigo Confirmed Active 1left eye Results Radiology Reports * Exam Date Time Procedure Performing Provider Status 11/16/22 1:53 PM US Doppler Ext Lower Venous Bilat Sheila Garcia; Auth (Verified) Notes: (US Doppler Ext Lower Venous Bilat) Reason For Exam: Pain in limb;Other: RESULT: US Doppler Ext Lower Venous Bilat US Doppler Ext Lower Venous Bilat REASON: Pain in limb; Clinical Question(s): Thrombosis Hx of Present Illness: cp x1 hour, back pain between her shoulders radiating to her shoulder bladesx1 week. was at [facility] last monday, diagnosed with pneumonia, on abx currently; COMPARISON: Right lower extremity Doppler for 1122. Left lower extremity Doppler 07/30/2022. IMAGING TECHNIQUE: Ultrasound of the veins from the groin through the calf was performed using grayscale, color, and spectral Doppler ultrasound assessing for complete compressibility and normal flowcharacteristics. FINDINGS: RIGHT LOWER EXTREMITY: Common femoral vein: Patent. No thrombosis. Femoral vein: Patent. No thrombosis. Popliteal vein: Patent. No thrombosis. Gastrocnemius veins: The visualized portions are patent without evidence of thrombosis. Peroneal veins: Not visualized. Posterior tibial veins: The visualized portions are patent without evidence of thrombosis. LEFT LOWER EXTREMITY: Common femoral vein: Patent. No thrombosis. Femoral vein: Patent. No thrombosis. Popliteal vein: Patent. No thrombosis. Gastrocnemius veins: The visualized portions are patent without evidence of thrombosis. Peroneal veins: Not visualized. Posterior tibial veins: The visualized portions are patent without evidence of thrombosis. OTHER FINDINGS: None. IMPRESSION: Bilateral peroneal veins not visualized. No evidence of deep venous thrombosis. I have personally reviewed the images and I agree with this report. WSN: [id number] Ordering Physician: Obdulia Lopez Dictated By: Augustine Cheney DO Dictated Date/Time: 11/16/22 2:00 pm Reviewed By: Andre Barrios MD Signed By: Andre Barrios MD Signed Date/Time: 11/16/22 2:05 pm Transcribed By: MART Transcribed Date/Time: 11/16/22 1:58 pm * Exam Date Time Procedure Performing Provider Status 11/16/22 2:59 AM Chest 2 Views Frontal and Lat Ramya Carty; Da (Verified) Notes: (Chest 2 Views Frontal and Lat) Reason For Exam: Chest Pain;Other: RESULT: Chest 2 Views Frontal and Lat Examination: Chest performed on 11/16/2022. History: Chest pain. Findings: Frontal and lateral views of the chest are compared to a prior study dated 06/03/2022. The cardiac and mediastinal silhouettes are within normal limits. Postsurgical change with volume loss in the left thorax is redemonstrated. There is stable left pleural thickening or effusion. The osseous and soft tissue structures are unremarkable. Impression: There is no acute cardiopulmonary disease. Stable postsurgical change. WSN: [id number] Ordering Physician: Savita Pollack Dictated By: Tracie Poe MD Dictated Date/Time: 11/16/22 8:17 am Reviewed By: Tracie Poe MD Signed By: Tracie Poe MD Signed Date/Time: 11/16/22 8:17 am Transcribed By: MART Transcribed Date/Time: 11/16/22 8:16 am Vital Signs Most recent to oldest [Reference Range]: 1 2 3 Height 160 cm (11/16/22 9:10 AM) 160 cm (11/16/22 2:23 AM) Weight 57 kg (11/16/22 9:10 AM) 57 kg (11/16/22 2:23 AM) Oxygen Saturation [94-100 %] 100 % (11/16/22 5:21 PM) 100 % (11/16/22 2:36 PM) 100 % (11/16/22 9:44 AM) Pulse Rate [55-90 bpm] 91 bpm *H* (11/16/22 5:21 PM) 82 bpm (11/16/22 2:36 PM) 80 bpm (11/16/22 9:44 AM) Blood Pressure [90-138/55-84 mm Hg] 160/84mm Hg *H* (11/16/22 5:21 PM) 152/73mm Hg *H* (11/16/22 2:36 PM) 163/74mm Hg *H* (11/16/22 9:44 AM) Respiratory Rate [16-30 br/min] 18 br/min (11/16/22 5:21 PM) 16 br/min (11/16/22 2:36 PM) 18 br/min (11/16/22 9:44 AM) Temperature [96.8-100.4 DegF] 98.4 DegF (11/16/22 5:21 PM) 98.3 DegF (11/16/22 2:36 PM) 98.1 DegF (11/16/22 9:44 AM) Mode of Delivery (Oxygen) Room air (11/16/22 5:21 PM) Room air (11/16/22 2:36 PM) Room air (11/16/22 9:44 AM) Blood pressure sites Arm, right (11/16/22 5:21 PM) Arm, right (11/16/22 2:36 PM) Arm, left (11/16/22 9:44 AM) Temperature Route Oral (11/16/22 5:21 PM) Oral (11/16/22 2:36 PM) Oral (5/10/23 9:44 AM) Social History Social History Type Response Smoking Status Never smoker; Tobacc o user in household: No entered on: 04/05/17 Sex Female EKG study * Event Display: ECG 12-Lead Authored Date: Please click on pdf link to open report * Event Display: ECG 12-Lead Authored Date: Ventricular Rate: 87 BPM Atrial Rate: 87 BPM P-R Interval: 134 ms QRS Duration: 112 ms Q-T Interval: 398 ms QTC Calculation(Bazett): 478 ms P [place]: 71 degrees R [place]: -55 degrees T [place]: 79 degrees Sinus rhythm with Premature atrial complexes Left anterior fascicular block Left ventricular hypertrophy with repolarization abnormality ( R in aVL , [place] product ) Abnormal ECG When compared with ECG of 14-SEP-2022 13:47, Premature atrial complexes are now Present Confirmed by KENYA SHARMA MD ([id number]) on 11/16/2022 3:58:57 PM [place]: KENYA SHARMA MD Note * Teresa Coy DO: PERFORM Event Display: Patient Education Leaflets Authored Date: Back Pain (Acute or Chronic) ?? [id number] Back Pain (Acute or Chronic) Back pain is one of the most common problems. The good news is that most people feel better in 1 to2 weeks, and most of the rest in 1 to 2 months. Most people can remain active. People who have pain??describe it differently???not??everyone is the same. ??? The pain can be sharp, stabbing, shooting, aching, cramping or burning. ??? Movement, standing,bending, lifting, sitting, or walking may worsen pain. ??? It can be limited to one spot or area, or it can be more generalized. ??? It can spread upwards, to the front, or go down your arms or legs (sciatica). ??? It can cause muscle spasm. Most of the time, mechanical problems with the muscles??or spine cause the pain. Mechanical problems??are usually caused by an injury to the muscles or ligaments. Illness can cause back pain, but it's usually not caused by a serious illness. Mechanical problems include:? Physical activity such as sports, exercise, work, or normal activity ??? Overexertion, lifting,pushing, pulling incorrectly or too aggressively ??? Sudden twisting, bending, or stretching from an accident, or accidental movement ??? Poor posture ??? Stretching or moving wrong, without noticingpain at the time ??? Poor coordination, lack of regular exercise (check with your doctor about this) ??? Spinal disc disease or arthritis ??? Stress Pain can also be related to , or illness such as appendicitis, bladder or kidney infections, kidney stones, and pelvic infections. Acute back pain usually gets better in??1 to 2 weeks. Back pain related to disk disease, arthritis in the spinal joints, or narrowing of the spinal canal (spinal stenosis) can become chronic and lastfor months or years. Unless you had a physical injury such as a car accident or fall, X-rays are usually not needed for the first assessment of back pain. If pain continues and does not respond to medical treatment, you may need X-rays and other tests. Home care Try this home care advice: ??? When in bed, try??to find a position of comfort. A firm mattress is best. Try lying flat on your back with pillows under your knees. You can also try lying on your side with your knees bent up toward your chest and a pillow between your knees. ??? At first, don't try to stretch out the sore spots. If there is a strain, it's not like the good soreness you get after exercising without an injury. In this case, stretching may make it worse. ??? Don't sit for long periods, as in a long car ride or during other??travel. This puts more stress on the lower back than standing or walking. ??? During the first 24 to 72 hours after an acute injury or flare up of chronic back pain, apply an ice pack to the painful area for 20 minutes and then remove it for 20 minutes. Do this over a period of 60 to 90 minutes or several times a day. This will reduce swelling and pain. Wrap the ice pack in a thintowel or plastic to protect your skin. ??? You can start with ice, then switch to heat. Heat (hot shower, hot bath, or heating pad) reduces pain and works well for muscle spasms. Heat can be applied to the painful area for 20 minutes then remove it for 20 minutes. Do this over a period of 60 to 90 minutes or several times a day. Don't sleep on a heating pad. It can lead to skin manuel or tissue damage. ??? You can alternate ice and heat therapy. Talk with your doctor about??the best treatment for your back pain. ??? Therapeutic massage can help relax the back muscles without stretching them. ??? Be aware of safe lifting methods. Don't lift anything without stretching first. Medicines Talk to your doctor before using medicine, especially if you have other medical problems or are taking other medicines. ??? You may use oqji-vdo-jvpvbbh medicine as directed on the bottle to control pain, unless another pain medicine was prescribed. Talk with your healthcare provider before using these medicines if you have chronic conditions such as diabetes, liver or kidney disease, stomach ulcers, or digestive bleeding. Also talk with your provider if you take blood thinners. ??? Be careful if you are given a prescription medicines, narcotics, or medicine for muscle spasms. They can cause drowsiness, affect your coordination, reflexes, and judgment. Don't drive or operate heavy machinery. ?? Follow-up care Follow up with your healthcare provider, or as advised.?? If X-rays were taken, you will be told of any new findings that may affect your care. ?? Call 911 Call 911 if any of the following occur: ??? Trouble breathing ??? Confusion ??? Very drowsy or trouble awakening ??? Fainting or loss of consciousness ??? Rapid or very slow heart rate ??? Loss of bowel or bladder control ?? When to seek medical advice Call your healthcare provider right away if any of these occur:? Pain gets worse or spreads toyour legs ??? Your bowel or bladder control changes ??? Fever ??? Blood in your urine ??? Weakness or numbness in one or both legs ??? Numbness in the groin or genital area ?? Last Reviewed Date: 2021 ?? 5758-2046 [employer]. All rights reserved. This information is not intended as a substitute for professional medical care. Always follow your healthcare professional's instructions. ?? * Teresa Coy DO: PERFORM Event Display: Patient Education Leaflets Authored Date: [id number] Back Care Tips ?? [id number] Back Care Tips Caring for your back These are things you can do to prevent a recurrence of acute back pain and to reduce symptoms from chronic back pain: ??? Stay at a healthy weight. If you are overweight, losing weight will help mosttypes of back pain. ??? Exercise is an important part of recovery from most types of back pain. Themuscles behind and in front of the spine support the back. This means strengthening both the back muscles and the belly (abdominal) muscles will provide better support for your spine.? Swimming and brisk walking are good overall exercises to improve your fitness level. ??? Practice safe lifting methods (see below). ??? Practice good posture when sitting, standing, and walking. Don't sit for a long time. This puts more stress on the low back than standing or walking. ??? Wear quality shoes with good arch support. Foot and ankle alignment can affect back symptoms. Don't wear high heels. ??? Therapeutic massage can help relax the back muscles without stretching them. ??? During the first 24 to 72 hours after an acute injury or flare-up of chronic back pain, put an ice pack on the painful area for 20 minutes and then remove it for 20 minutes. Do this over a period of 60 to 90 minutes, or several times a day. As a safety precaution, don't use a heating pad at bedtime. Sleeping on a heating pad can lead to skin manuel or tissue damage. ??? You can alternate using ice and heat. ?? Medicines Talk with your healthcare provider before using medicines, especially if you have other health problems or are taking other medicines. ??? You may use sbpc-auo-vvzraax medicines, such as acetaminophen, ibuprofen, or naproxen to control pain, unless your healthcare provider prescribed other pain medicine. Talk with your provider before taking any medicines if you have a long-term (chronic) condition, such as diabetes, liver or kidney disease, stomach ulcers, or digestive bleeding, or are taking blood thinners. ??? Be careful if you are given prescription pain medicines, opioids, or medicine for muscle spasm. They can cause drowsiness, and affect your coordination, reflexes, and judgment. Don' t drive or operate heavy machinery while taking these types of medicines. Take prescription pain medicine only as prescribed by your provider. ?? Lumbar stretch This simple stretch will help relax muscle spasm and keep your back more limber. If exercise makes your back pain worse, don???t do it. ??? Lie on your back with your knees bent and both feet on the ground. ??? Slowly raise your left knee to your chest as you flatten your low back against the floor. Hold for 5 seconds. ??? Relax and repeat the exercise with your right knee. ??? Do 10 of these exer cises for each leg. ?? Safe lifting method ??? Don???t bend over at the waist to lift an object off the floor.?? Instead, bend your knees and hips in a squat.? Keep your back and head upright ??? Hold the object closeto your body, directly in front of you. ??? Straighten your legs to lift the object.? Lower the object to the floor in the reverse fashion. ??? If you must slide something across the floor, push it. ?? Posture tips Sitting Sit in chairs with straight backs or low-back support. Keep your knees lower than your hips, with your feet flat on the floor. When driving, sit up straight. Adjust the seat forward so you are not leaning toward the steering wheel.??A small pillow or rolled towel behind your low back may help if you are driving long distances.?? Standing When standing for long periods, shift most of your weight to one leg at a time. Switch legs every few minutes.?? Sleeping The best way to sleep is on your side with your knees bent. Put a low pillow under your head to support your neck in a neutral spine position. Don't use thick pillows that bend your neck to one side.Put a pillow between your legs to further relax your low back. If you sleep on your back, put pillows under your knees to support your legs in a slightly flexed position. Use a firm mattress. If yourmattress sags, replace it, or use a 1/2-inch plywood board under the mattress to add support. ?? Follow-up care Follow up with your??healthcare provider as advised. If X-rays, a CT scan, or an MRI scan were taken, they may be reviewed by a radiologist. You will betold of any new findings that may affect your care. ?? Call 911 Call 911 if any of the following occur: ??? Trouble breathing ??? Confusion ??? Very drowsy ??? Fainting or loss of consciousness ??? Very fast or very slow heart rate ??? Loss of??bowel or bladder control ?? When to get medical advice Call your healthcare provider right away??if any of these occur: ??? Pain becomes worse or spreads to your arms or legs ??? Weakness or numbness in 1 or both arms or legs ??? Numbness in the groin area ?? Last Reviewed Date: 2022 ?? [id number] [employer]. All rights reserved. This information is not intended as a substitute for professional medical care. Always follow your healthcare professional's instructions. ?? Laboratory * [facility] , CIS S: TRANSCRIBE Tracie Poe MD: VERIFY Event Display: Result: Authored Date: [id number] Examination: Chest performed on 11/16/2022. History: Chest pain. Findings: Frontal and lateral views of the chest are compared to a prior study dated 06/03/2022. The cardiac and mediastinal silhouettes are within normal limits. Postsurgical change with volume loss in the left thorax is redemonstrated. There is stable left pleural thickening or effusion. The osseous and soft tissue structures are unremarkable. Impression: There is no acute cardiopulmonary disease. Stable postsurgical change. WSN: [id number] Ordering Physician: Savita Pollack Dictated By: Tracie Poe MD Dictated Date/Time: 11/16/22 8:17 am Reviewed By: Tracie Poe MD Signed By: Tracie Poe MD Signed Date/Time: 11/16/22 8:17 am Transcribed By: MART Transcribed Date/Time: 11/16/22 8:16 am US.doppler Lower extremity vein - bilateral * [facility] , CIS S: TRANSCRIBE Augustine Cheney DO: Andre Hanson MD: VERIFY Event Display: Result: Authored Date: [id number] US Doppler Ext Lower Venous Bilat REASON: Pain in limb; Clinical Question(s): Thrombosis Hx of Present Illness: cp x1 hour, back pain between her shoulders radiating to her shoulder bladesx1 week. was at [facility] last monday, diagnosed with pneumonia, on abx currently; COMPARISON: Right lower extremity Doppler for 1122. Left lower extremity Doppler 07/30/2022. IMAGING TECHNIQUE: Ultrasound of the veins from the groin through the calf was performed using grayscale, color, and spectral Doppler ultrasound assessing for complete compressibility and normal flowcharacteristics. FINDINGS: RIGHT LOWER EXTREMITY: Common femoral vein: Patent. No thrombosis. Femoral vein: Patent. No thrombosis. Popliteal vein: Patent. No thrombosis. Gastrocnemius veins: The visualized portions are patent without evidence of thrombosis. Peroneal veins: Not visualized. Posterior tibial veins: The visualized portions are patent without evidence of thrombosis. LEFT LOWER EXTREMITY: Common femoral vein: Patent. No thrombosis. Femoral vein: Patent. No thrombosis. Popliteal vein: Patent. No thrombosis. Gastrocnemius veins: The visualized portions are patent without evidence of thrombosis. Peroneal veins: Not visualized. Posterior tibial veins: The visualized portions are patent without evidence of thrombosis. OTHER FINDINGS: None. IMPRESSION: Bilateral peroneal veins not visualized. No evidence of deep venous thrombosis. I have personally reviewed the images and I agree with this report. WSN: [id number] Ordering Physician: Obdulia Lopez Dictated By: Augustine Cheney DO Dictated Date/Time: 11/16/22 2:00 pm Reviewed By: Andre Barrios MD Signed By: Andre Barrios MD Signed Date/Time: 11/16/22 2:05 pm Transcribed By: MART Transcribed Date/Time: 11/16/22 1:58 pm Patient Care team information Care Team Personnel Name: Val Wynne Position: [facility] Onco RN Member Role: Primary Care Nurse Name: Karen Pittman RN Position: S RN Member Role: Primary Care Nurse Name: Shilpi Mattson Position: Reference Physician Member Role: Primary Care Nurse Address: Address: [address] [place] [address] [address] [place], [place] [address] Name: Toyin Doherty RN Position: S RN Member Role: Primary Care Nurse Name: Eben Hernandez NP Position: [facility] Associate Professional Member Role: [employer] Provider Address: Address: [address] [place] [address]- [place] Name: Alejandrina Turner RN Position: [facility] RN Member Role: Primary Care Nurse Name: Zoraida Felix RN Position: [facility] RN Member Role: Primary Care Nurse Name: Daphne Hooker RN Position: [facility] RN Member Role: Primary Care Nurse Name: Nasima Gonzalez RN Position: [facility] RN Supv Member Role: Primary Care Nurse Name: Caitlyn Bowie MD Position: [facility] Primary Care Physician Member Role: PCP Address: Address: [address] [place] [id number]- [place] Name: Sheeba García Position: [facility] RN Member Role: Primary Care Nurse Name: Kiki Abdi RN Position: [facility] RN Member Role: Primary Care Nurse Name: Marry Reza Position: [facility] RN Member Role: Primary Care Nurse Name: Maddie Herrera RN Position: [facility] RN Member Role: Primary Care Nurse Name: Raegan Baptiste RN Position: [facility] RN Member Role: Primary Care Nurse Name: Svitlana Marcum RN Position: [facility] AMB Nurse Member Role: Primary Care Nurse Name: She Pool Position: [facility] RN Member Role: Primary Care Nurse Name: Kaila Latham RN Position: [facility] RN Member Role: Primary Care Nurse Name: Julio C Bahena Position: [facility] RN Member Role: Primary Care Nurse Name: Nasima Heredia RN Position: [facility] RN Member Role: Primary Care Nurse Name: Katherine Nixon PharmD Position: [facility] Associate Professional Member Role: [employer] Provider Address: Address: [address] [place] [address] [place] Name: Daphne Barton RN Position: [facility] RN Member Role: Primary Care Nurse Name: Katherine Long RN Position: [facility] RN Member Role: Primary Care Nurse Name: Norma Serrano RN Position: [facility] RN Member Role: Primary Care Nurse Name: Seven Kelly RN Position: [facility] RN Member Role: Primary Care Nurse Name: Fani Perez RN Position: [facility] RN Member Role: Primary Care Nurse Name: Hattie Brewster RN Position: [facility] RN Member Role: Primary Care Nurse Name: Yudith Rothman RN Position: [facility] Onco RN Member Role: Primary Care Nurse Name: Kelly Hernandez RN Position: [facility] RN Member Role: Primary Care Nurse Name: Parris Zuluaga RN Position: [facility] RN Member Role: Primary Care Nurse Name: Omar Saini Position: [facility] ED TA [facility] Member Role: Patient Care Provider Name: James Banda MD Position: [facility] ED Medicine MD Member Role: Admitting Physician Address: Address: [address] [place] [address]- [place] Name: Marina Roman RN Position: [facility] ED RN W/OE and Tasks Member Role: Patient Care Provider Name: Teresa Coy DO Position: [facility] Resident Member Role: ED Resident Address: Address: [address] [place] [address] [place] [address]- Care Team Related Persons Name: MARKZENAIDA ADAIR Address: [place] [address] Name: TIA RIVERS Address: [place] [address] Name: JOHANN RETANA Address: [place] [address]
--- OUTSIDE RECORDS SUMMARY | 2023-10-14 16:35 | XMS_ITS | Continuity of Care Document ---
Author Organization [facility] Address [address] [place] [address]- Care Team Providers Care Director Of Math Name Role Phone Sharon Vides MD Primary Care Physician Encounter [facility] [place] Date(s): 05/06/20 - 05/13/20 [facility] [address] [place] [address]- [place] Attending Physician: Joe Servin MD Admitting Physician: Joe Servin MD Referring Physician: Sharon Vides MD Allergies, Adverse Reactions, Alerts Substance Reaction Severity Status ciprofloxacin Active gentamicin Active erythromycin Active penicillin 1 Active vancomycin Active morphine Active barium sulfate Active sulfa drugs Active Voltaren Active Zithromax Active Flagyl Active Novocain Active Biaxin Active Gastrografin Active Levaquin Avocado Active Avelox Active Bee Stings Active Contrast Dye Active Mold Active Shrimp Active Avocado Active iodinated radiocontrast dyes Active 1Allergy testing doen 09/26 was negative [...] By Mouth, Daily, Dr. primo Renee at [place], # 30 tablet, 0 Refills, Maintenance, 01/26/18 [...] oldest [Reference Range]: 1 Height 160 cm (05/06/20 2:18 PM) Weight 60 kg (05/06/20 2:18 PM) Oxygen Saturation [94-100 %] 99 % (05/06/20 2:18 PM) Pulse Rate [55-90 bpm] 74 bpm (05/06/20 2:18 PM) Body Mass Index [18.5-24.99] 23.44 (05/06/20 2:18 PM) Blood Pressure [90-138/55-84 mm Hg] 129/ 67mm Hg (05/06/20 2:18 PM) Mode of Delivery (Oxygen) Room air (05/06/20 2:18 PM) Blood pressure sites Arm, left (05/06/20 2:18 PM) Weight Obtained Via Standing scale (05/06/20 2:18 PM) Social History Social History Type Response Smoking Status Never smoker; Tobacc o user in household: No entered on: 04/05/17 Sex
--- OUTSIDE RECORDS SUMMARY | 2023-10-14 16:35 | XMS_ITS | Continuity of Care Document ---
Author Organization [facility] Address [address] [place] [address]- Care Team Providers Care Sealer Operator Name Role Phone Caitlyn Bowie MD Primary Care Physician Encounter [facility] [place] Date(s): 03/15/21 - 03/16/[address] [address]- Encounter Diagnosis Diverticulitis(Final) - 03/14/21 Discharge Disposition: A-D/C Home Attending Physician: Hugo Kwan MD Admitting Physician: Morteza Matos MD Referring Physician: Not on Staff, Referring [...] EDT, Solution Start Date: 01/26/18 Status: Ordered amoxicillin-clavulanate 400 mg-57 mg/5 ml oral powder for reconstitution 11 mL, By Mouth, Every 12 hours, for 5 days, # 110 mL, 0 Refills, Acute 03/21/21 9:04:00 EDT, 03/16/21 9:04:00 EDT, REC Powder, [facility], Partial fill upon patient request if the prescription is for a schedule II opioid drug., 134.6, c... Start Date: 03/16/21 Stop Date: 03/21/21 Status: Ordered codeine-guaifenesin 7.5 mg-225 mg/5 mL [...] Date: 02/15/21 Stop Date: 03/01/21 Status: Ordered metoprolol 50 mg oral tablet, extended release 50 mg, XL Tablet, By Mouth, 03/16/21 9:00:00 EDT Start Date: 03/16/21 Stop Date: 03/16/21 Status: Completed Metoprolol Succinate ER 50 mg oral tablet, extended release 1 tablet = 50 mg, By Mouth, 2 times a day, Dr. primo Renee at [place], per pt, # 30 tablet, 0 Refills, [...] Hypothyroidism(Confirmed) Active Respiratory failure with hypoxia(Confirmed) Active Insomnia(Confirmed) Active Mitral valve prolapse(Confirmed) Active Optic neuritis(Confirmed) 1 Active Osteoporosis(Confirmed) Active Platelet function defect(Confirmed) Active Radiation pneumonitis(Confirmed) Active Sleep apnea, CPAP(Confirmed) Active Superficial thrombophlebitis(Confirmed) 2 Active SVT (supraventricular tachycardia)(Confirmed) Active 1left eye 2lower extrem Vital Signs Most recent to oldest [Reference Range]: 1 2 3 Oxygen Saturation [94-100 %] 98 % (03/16/21 7:00 AM) 98 % (03/16/21 3:41 AM) 99 % (03/15/21 7:01 PM) Pulse Rate [55-90 bpm] 79 bpm (03/16/21 8:06 AM) 79 bpm (03/16/21 7:00 AM) 88 bpm (03/16/21 3:41 AM) Blood Pressure [90-138/55-84 mm Hg] 134/57mm Hg (03/16/21 8:06 AM) 134/57mm Hg (03/16/21 7:00 AM) 160/61mm Hg *H* (03/16/21 3:41 AM) Respiratory Rate [16-30 br/min] 20 br/min (03/16/21 7:00 AM) 20 br/min (03/16/21 3:41 AM) 21 br/min (03/15/21 7:01 PM) Temperature [96.8-100.4 DegF] 98.5 DegF (03/16/21 7:00 AM) 98 DegF (03/16/21 3:41 AM) 98.3 DegF (03/15/21 7:01 PM) Mode of Delivery (Oxygen) Room air (03/16/21 7:00 AM) Room air (03/16/21 3:41 AM) Room air (03/15/21 7:01 PM) Blood pressure sites Arm, right (03/16/21 7:00 AM) Arm, right (03/16/21 3:41 AM) Arm, right (03/15/21 7:01 PM) Temperature Route Oral (03/16/21 7:00 AM) Oral (03/16/21 3:41 AM) Oral (03/15/21 7:01 PM) Social History Social History Type Response Smoking Status Never smoker; Tobacc o user in household: No entered on: 04/05/17 Sex
--- OUTSIDE RECORDS SUMMARY | 2023-10-14 16:35 | XMS_ITS | Continuity of Care Document ---
Author Organization [facility] Address [address] [place] [address]- Care Team Providers Care Factory Lay Out Engineer Name Role Phone Caitlyn Bowie MD Primary Care Physician Encounter [facility] Date(s): 12/19/22 - 01/18/23 [facility] [address] [place], [place] [address] Allergies, Adverse Reactions, Alerts Substance Reaction [...] Care Team Personnel Name: Val Wynne Position: [facility] Onco RN Member Role: Primary Care Nurse Name: Karen Pittman RN Position: [facility] RN Member Role: Primary Care Nurse Name: Shilpi Mattson Position: Reference Physician Member Role: Primary Care Nurse Address: Address: [address] [place] [address]- [place] Name: Toyin Doherty RN Position: [facility] RN Member Role: Primary Care Nurse Name: Eben Hernandez NP Position: [facility] Associate Professional Member Role: Lifetime Consulting Provider Address: Address: [address] [place] [address]- [place] Name: Alejandrina Turner RN Position: [facility] RN Member Role: Primary Care Nurse Name: Zoraida Felix RN Position: [facility] RN Member Role: Primary Care Nurse Name: Daphne Hooker RN Position: [facility] RN Member Role: Primary Care Nurse Name: Nasima Gonzalez RN Position: [facility] RN Supv Member Role: Primary Care Nurse Name: Caitlyn Bowie MD Position: [facility] Physician - Primary Care Member Role: PCP Address: Address: [address] [place] [address]- [place] Name: Kiki Abdi RN Position: [facility] RN Member Role: Primary Care Nurse Name: Marry Reza Position: [facility] RN Member Role: Primary Care Nurse Name: Veronica Hurst MA Position: [facility] SALLY MA Member Role: Lifetime Consulting Physician Name: Maddie Herrera RN Position: [facility] AMB Nurse Member Role: Primary Care Nurse Name: Raegan Baptiste RN Position: [facility] RN Member Role: Primary Care Nurse Name: Svitlana Marcum RN Position: [facility] AMB Nurse Member Role: Primary Care Nurse Name: She Pool Position: [facility] RN Member Role: Primary Care Nurse Name: Kaila Latham RN Position: [facility] RN Member Role: Primary Care Nurse Name: Julio C Bahena Position: [facility] RN Member Role: Primary Care Nurse Name: Nasima Heredia RN Position: [facility] RN Member Role: Primary Care Nurse Name: Katherine Nixon PharmD Position: [facility] Associate Professional Member Role: Lifetime Consulting Provider Address: Address: [address] [place] [address]- [place] Name: Daphne Barton RN Position: [facility] RN Member Role: Primary Care Nurse Name: Katherine Long RN Position: [facility] RN Member Role: Primary Care Nurse Name: Norma Serrano RN Position: [facility] RN Member Role: Primary Care Nurse Name: Seven Kelly RN Position: [facility] RN Member Role: Primary Care Nurse Name: Fani Perez RN Position: [facility] RN Member Role: Primary Care Nurse Name: Hattie Brewster RN Position: [facility] RN Member Role: Primary Care Nurse Name: Yudith Rothman RN Position: [facility] Onco RN Member Role: Primary Care Nurse Name: Kelly Hernandez RN Position: [facility] RN Member Role: Primary Care Nurse Name: Parris Zuluaga RN Position: [facility] RN Member Role: Primary Care Nurse Care Team Related Persons Name: ZENAIDA FLORES Address: [place] [address] Name: TIA RIVERS Address: [place] [address] Name: JOHANN RETANA Address: [place] [address]
--- OUTSIDE RECORDS SUMMARY | 2023-10-14 16:35 | XMS_ITS | Continuity of Care Document ---
Author Organization [facility] Address [address] [place] [address]- Care Team Providers Care Lining Stitcher Name Role Phone Peewee STARK, Sharon Primary Care Physician Encounter [facility] [place] Date(s): 04/06/20 - 05/06/20 [facility] [address] [place] [address]- [facility] Allergies, Adverse Reactions, Alerts Substance Reaction Severity Status ciprofloxacin Active penicillin 1 Active barium sulfate Active Gastrografin Active Levaquin Avocado Active gentamicin Active erythromycin Active vancomycin Active morphine Active sulfa drugs [...] By Mouth, Daily, Dr. primo Renee at [place], # 30 tablet, 0 Refills, Maintenance, 01/26/18 [...]
--- OUTSIDE RECORDS SUMMARY | 2023-10-14 16:35 | XMS_ITS | Continuity of Care Document ---
Author Organization [facility] Address [address] [place] [address]- Care Team Providers Care Motor Vehicle Field Representative Name Role Phone Peewee STARK, Sharon Primary Care Physician Encounter [facility] [place] Date(s): 11/27/19 - 12/27/19 [facility] [address] [place] [address]- [facility] Attending Physician: Melissa Morrison Admitting Physician: Melissa Morrison Referring Physician: Melissa Morrison Referring Physician: Toyin Cm Allergies, Adverse Reactions, Alerts Substance Reaction Severity Status ciprofloxacin Active morphine Active barium sulfate Active Voltaren Active Gastrografin Active Levaquin Avocado Active gentamicin Active erythromycin Active penicillin 1 Active vancomycin Active sulfa drugs Active iodinated radiocontrast dyes [...] By Mouth, Daily, Dr. primo Renee at [place], # 30 tablet, 0 Refills, Maintenance, 01/26/18 16:36:23 EDT, ER Tablet Start Date: 01/26/18 Status: Ordered metroNIDAZOLE 500 mg oral tablet 1 tablet = 500 mg, By Mouth, Every 8 hours, may take with food to minimize abdominal discomfort, # 18 tablet, 0 Refills, Maintenance, 09/06/19 14:42:00 EST, Tablet, [facility], 160, cm,09/06/19 7:35:00 EST, Height, 60.3, [...]
--- OUTSIDE RECORDS SUMMARY | 2023-10-14 16:35 | XMS_ITS | Continuity of Care Document ---
Author Organization [facility] Address [address] [place] [address]- Care Team Providers Care Freight Flow Sales Leader Name Role Phone Caitlyn Bowie MD Primary Care Physician [phone] [place] [facility] [place] 01[place]14/22 - 02/13/22 [facility] [address] [place] [address]- [place] Allergies, Adverse Reactions, Alerts Substance Reaction [...] day, 0 Refills, Maintenance, 11/06/21 12:44:00 EDT, [place], Partialfill upon patient request if the prescription [...] Dry Weight Start Date: 12/23/21 Status: Ordered mupirocin 2% topical ointment 1 application, Topically, 3 times a day, apply thin layer on stye, # 22 Gm, 0 Refills, Acute 03/12/22 8:54:00 EDT, 02/10/22 8:53:00 EDT, Ointment, [facility], Partial fill upon patient request if the prescription is for a schedule II opi... Start Date: 02/10/22 Stop Date: 03/12/22 Status: Ordered omeprazole 40 mg oral enteric coated capsule 1 capsule = 40 mg, By Mouth, Daily, # 5 capsule, 0 Refills, Maintenance, 11/09/21 9:33:00 EDT, EC Capsule, [facility], Partial fill upon patient request [...]
--- OUTSIDE RECORDS SUMMARY | 2023-10-14 16:35 | XMS_ITS | Continuity of Care Document ---
Author Organization [facility] Address [address] [place] [address]- Care Team Providers Care Supervisor [employer] Name Role Phone Caitlyn Bowie MD Primary Care Physician Encounter [facility] Date(s): 06/14/23 - 07/14/23 [facility] [address] [place], [place] [address] Allergies, Adverse Reactions, Alerts Substance Reaction Severity Status ciprofloxacin Active barium sulfate Active Voltaren Active gentamicin Active clindamycin throat tightening Active erythromycin Active penicillin 1 Active vancomycin Active busPIRone Feeling of throat ti ghtness Headache Dizziness Active ipratropium Active morphine Active sulfa drugs Active iodinated radiocontrast dyes Active Biaxin Active [...] Care Nurse Name: Karen Pittman RN Position: [facility] RN Member Role: Primary Care Nurse Name: Shilpi Mattson Position: Reference Physician Member Role: Primary Care Nurse Address: Address: [address] [place] [address] Name: Toyin Doherty RN Position: [facility] RN Member Role: Primary Care Nurse Name: Eben Hernandez NP Position: [facility] Associate Professional Member Role: Lifetime Consulting Provider Address: Address: [address] [place] [address] Name: Alejandrina Turner RN Position: [facility] RN Member Role: Primary Care Nurse Name: Zoraida Felix RN Position: [facility] ED RN W/OE and Tasks Member Role: Primary Care Nurse Name: Daphne Hooker RN Position: [facility] RN Member Role: Primary Care Nurse Name: Nasima Gonzalez RN Position: [facility] RN Supv Member Role: Primary Care Nurse Name: Caitlyn Bowie MD Position: [facility] Physician - Primary Care Member Role: PCP Address: Address: [address] [place] [address]- [place] Name: Kiki Abdi RN Position: [facility] RN Member Role: Primary Care Nurse Name: Marry Reza Position: S RN Member Role: Primary Care Nurse Name: Veronica Hurst MA Position: [facility] AMB MA Member Role: Lifetime Consulting Physician Name: Maddie Herrera RN Position: [facility] AMB Nurse Member Role: Primary Care Nurse Name: Yudith Herrera RN Position: [facility] Onco RN [...] Care Nurse Name: Katherine Nixon PharmD Position: [facility] Associate Professional Member Role: Lifetime Consulting Provider Address: Address: [address] [place] [address]- [place] Name: Daphne Barton RN Position: [facility] [...] Care Nurse Name: Pallavi Wylie LPN Position: [facility] RN Member Role: Primary Care Nurse Name: Parris Zuluaga RN Position: [facility] RN Member Role: Primary Care Nurse Care Team Related Persons Name: ZENAIDA FLORES Address: [place], [place] Name: TIA RIVERS Address: [place] [address] Name: JOHANN RETANA Address: [place], [place]
--- OUTSIDE RECORDS SUMMARY | 2023-10-14 16:35 | XMS_ITS | Continuity of Care Document ---
Author Organization [facility] Address [address] [address]- Care Team Providers Care Nuclear Control Room Operator Name Role Phone Peewee STARK, Sharon Primary Care Physician [place] [facility] [place]08[place]20 - 02/07/20 [facility] [address] [place] [address] [facility] Allergies, Adverse Reactions, Alerts Substance Reaction Severity [...] By Mouth, Daily, Dr. primo Renee at [place], # 30 tablet, 0 Refills, Maintenance, 01/26/18 16:36:23 EDT, ER Tablet Start Date: 01/26/18 Status: Ordered metroNIDAZOLE 500 mg oral tablet 1 tablet = 500 mg, By Mouth, Every 8 hours, may take with food to minimize abdominal discomfort, # 18 tablet, 0 Refills, Maintenance, 09/06/19 14:42:00 EST, Tablet, [facility], 160, cm,09/06/19 7:35:00 EST, Height, 60.3, [...]
--- OUTSIDE RECORDS SUMMARY | 2023-10-14 16:35 | XMS_ITS | Continuity of Care Document ---
Author Organization [facility] Address [address] [place] [address]- Care Team Providers Care Dean Of Girls Name Role Phone Caitlyn Bowie MD Primary Care Physician [facility]counter [facility] Date(s): 01/31/23 - 03/02/23 [facility] [address] [place], [place] [address] Allergies, Adverse Reactions, Alerts [...] Care Team Personnel Name: Val Wynne Position: [facility] Onco RN Member Role: Primary Care Nurse Name: Karen Pittman RN Position: [facility] RN Member Role: Primary Care Nurse Name: Shilpi Mattson Position: Reference Physician Member Role: Primary Care Nurse Address: Address: [address] [place] [address]- [place] Name: Toyin Doherty RN Position: [facility] RN Member Role: Primary Care Nurse Name: Eben Hernandez NP Position: [facility] Associate Professional Member Role: Lifetime Consulting Provider Address: Address: [address] [place] [address]- Name: Alejandrina Turner RN Position: [facility] RN Member Role: Primary Care Nurse Name: Zoraida Felix RN Position: [facility] RN Member Role: Primary Care Nurse Name: Daphne Hooker RN Position: [facility] RN Member Role: Primary Care Nurse Name: Nasima Gonzalez RN Position: [facility] RN Supv Member Role: Primary Care Nurse Name: Caitlyn Bowie MD Position: [facility] Physician - Primary Care Member Role: PCP Address: Address: [address] [place] [address]- [place] Name: Kiki Abdi RN Position: [facility] RN Member Role: Primary Care Nurse Name: Marry Reza Position: [facility] RN Member Role: Primary Care Nurse Name: Veronica Hurst [place] Position: [facility] AMB [place] Member Role: Lifetime Consulting Physician Name: Maddie Herrera RN Position: [facility] AMB Nurse Member Role: Primary Care Nurse Name: Raegan Baptiste RN Position: [facility] RN Member Role: Primary Care Nurse Name: She Pool Position: [facility] RN Member Role: Primary Care Nurse Name: Kaila Latham RN Position: [facility] RN Member Role: Primary Care Nurse Name: Julio C Bahena Position: [facility] RN Member Role: Primary Care Nurse Name: Nasima Heredia RN Position: [facility] RN Member Role: Primary Care Nurse Name: Katherine Nixon PharmD Position: [facility] Associate Professional Member Role: Lifetime Consulting Provider Address: Address: [address] [place] [address] Name: Daphne Barton RN Position: [facility] RN Member Role: Primary Care Nurse Name: Katherine Long RN Position: [facility] RN Member Role: Primary Care Nurse Name: Norma Serrano RN Position: [facility] RN Member Role: Primary Care Nurse Name: Seven Kelly RN Position: [facility] RN Member Role: Primary Care Nurse Name: Fani Perez RN Position: [facility] RN Member Role: Primary Care Nurse Name: Hattie Brewster RN Position: [facility] RN Member Role: Primary Care Nurse Name: Yudith Rothman RN Position: [facility] Onclaila RN Member Role: Primary Care Nurse Name: Kelly Hernandez RN Position: [facility] RN Member Role: Primary Care Nurse Name: Parris Zuluaga RN Position: [facility] RN Member Role: Primary Care Nurse Care Team Related Persons Name: MARK ZENAIDA Address: [place], [place] Name: TIA RIVERS Address: [place] [address] Name: JOHANN RETANA Address: [place], [place]
--- OUTSIDE RECORDS SUMMARY | 2023-10-14 16:35 | XMS_ITS | Continuity of Care Document ---
Author Organization [facility] Address [address] [place] [address]- Care Team Providers Care Scrap Wheeler Name Role Phone Caitlyn Bowie MD Primary Care Physician [facility]counter [facility] Date(s): 03/22/21 - 04/21/21 [facility] [address] [place] [address] Allergies, Adverse Reactions, Alerts Substance [...] 16:14:00 EDT,Route to Pharmacy Electronically, [facility], Partial fill upon patient request if the prescription is for a schedule II opioid drug., 13... Start Date: 04/16/21 Stop Date: 05/16/21 Status: Ordered diazepam 5 mg oral tablet See Instructions, PRN, TAKE 1/2 TO 1 TAB 5 mg By Mouth Daily at bedtime, # 30 tablet, Refills 3, Tot. Refills 3, Maintenance, as needed for sleep, 02/15/21 12:03:00 EDT, Instructions Replace RequiredDetails, Do Not Route Start Date: 02/15/21 Status: Ordered doxycycline monohydrate 100 mg oral tablet 1 tablet = 100 mg, By Mouth, 2 times a day, for 5 days, # 10 tablet, 0 Refills, Acute 04/26/21 11:37:00 EDT, 04/21/21 11:37:00 EDT, Tablet, [facility], Partial fill upon patient request if the prescription is for a schedule II opioid jessie... Start Date: 04/21/21 Stop Date: 04/26/21 Status: Ordered EPINEPHrine 0.3 mg injectable solution [...]
--- OUTSIDE RECORDS SUMMARY | 2023-10-14 16:36 | XMS_ITS | Continuity of Care Document ---
Author Organization [facility] ter Address [address] [place] [address]- Care Team Providers Care Engineer Design And Construction Name Role Phone Caitlyn Bowie MD Primary Care Physician En[place] [facility] [place] Date(s): 10/10/22 - 11/17/[address] [id number] Attending Physician: Luis Eduardo Cadet MD Admitting Physician: Luis Eduardo Cadet MD Referring Physician: Luis Eduardo Cadet MD Allergies, Adverse Reactions, Alerts Substance Reaction Severity Status ciprofloxacin Active morphine Active barium sulfate Active sulfa drugs Active gentamicin Active erythromycin Active penicillin 1 Active vancomycin Active busPIRone Feeling of throat ti ghtness Headache Dizziness Active ipratropium Active Zithromax Active Gastrografin Active Levaquin Avocado Active iodinated radiocontrast dyes Active Voltaren Active Flagyl Active Novocain Active Biaxin Active [...] Care Team Personnel Name: Val Wynne Position: [facility] Onco RN Member Role: Primary Care Nurse Name: Karen Pittman RN Position: S RN Member Role: Primary Care Nurse Name: Shilpi Mattson Position: Reference Physician Member Role: Primary Care Nurse Address: Address: [address] [place] [address] [address] [place] [address]- [place] Name: Toyin Doherty RN Position: S RN Member Role: Primary Care Nurse Name: Eben Hernandez NP Position: S Associate Professional Member Role: Lifetime Consulting Provider Address: Address: [address] [place] [address]- [place] Name: Alejandrina Turner RN Position: S RN Member Role: Primary Care Nurse Name: Zoraida Felix RN Position: [facility] RN Member Role: Primary Care Nurse Name: Daphne Hooker RN Position: [facility] RN Member Role: Primary Care Nurse Name: Nasima Gonzalez RN Position: [facility] RN Loyda Member Role: Primary Care Nurse Name: Caitlyn Bowie MD Position: [facility] Primary Care Physician Member Role: PCP Address: Address: [address] [place] [address]- Name: Sheeba García Position: [facility] RN Member Role: Primary Care Nurse Name: Kiki Abdi RN Position: [facility] RN Member Role: Primary Care Nurse Name: Marry Reza Position: [facility] RN Member Role: Primary Care Nurse Name: Maddie Herrera RN Position: [facility] RN Member Role: Primary Care Nurse Name: Raegan Baptiste RN Position: [facility] RN Member Role: Primary Care Nurse Name: Svitlana Marcum RN Position: [facility] AMB Nurse Member Role: Primary Care Nurse Name: She Pool Position: [facility] RN Member Role: Primary Care Nurse Name: Kaila Latham RN Position: [facility] RN Member Role: Primary Care Nurse Name: Julio C Bahena Position: [facility] RN Member Role: Primary Care Nurse Name: Nasima Heredia RN Position: [facility] RN Member Role: Primary Care Nurse Name: Katherine Nixon PharmD Position: [facility] Associate Professional Member Role: Lifetime Consulting Provider Address: Address: [address] [place] [address]- Name: Daphne Barton RN Position: [facility] RN Member Role: Primary Care Nurse Name: Katherine Long RN Position: [facility] RN Member Role: Primary Care Nurse Name: Norma Serrano RN Position: [facility] RN Member Role: Primary Care Nurse Name: Seven Kelly RN Position: [facility] RN Member Role: Primary Care Nurse Name: Fani Perez RN Position: [facility] RN Member Role: Primary Care Nurse Name: Hattie Brewster RN Position: [facility] RN Member Role: Primary Care Nurse Name: Yudith Rothman RN Position: [facility] Criss RN Member Role: Primary Care Nurse Name: Kelly Hernandez RN Position: [facility] RN Member Role: Primary Care Nurse Name: Parris Zuluaga RN Position: [facility] RN Member Role: Primary Care Nurse Care Team Related Persons Name: ZENAIDA FLORES Address: [place] [address] Name: TIA RIVERS Address: [place] [address] Name: JOHANN RETANA Address: [place] [address]
--- OUTSIDE RECORDS SUMMARY | 2023-10-14 16:36 | XMS_ITS | Continuity of Care Document ---
Author Organization [facility] Address [address] [place] [address]- Care Team Providers Care Drawer In Dobby Loom Name Role Phone Azeb STARK, Caitlyn Thompson Primary Care Physician [phone] Encounter [facility] Date(s): 09/12/22 - 10/12/22 [facility] [address] [place] [address]- Allergies, Adverse Reactions, Alerts Substance Reaction Severity [...] Care Team Personnel Name: Val Wynne Position: [facility] Onco RN Member Role: Primary Care Nurse Name: Karen Pittman RN Position: [facility] RN Member Role: Primary Care Nurse Name: Shilpi Mattson Position: Reference Physician Member Role: Primary Care Nurse Address: Address: [address] [place] [address] [address] [place] [address]- [place] Name: Toyin Doherty RN Position: [facility] RN Member Role: Primary Care Nurse Name: Eben Hernandez NP Position: [facility] Associate Professional Member Role: Lifetime Consulting Provider Address: Address: [address] [place] [address]- Name: Alejandrina Turner RN Position: [facility] RN Member Role: Primary Care Nurse Name: oZraida Felix RN Position: [facility] RN Member Role: Primary Care Nurse Name: Daphne Hooker RN Position: [facility] RN Member Role: Primary Care Nurse Name: Nasima Gonzalez RN Position: [facility] RN Suprodney Member Role: Primary Care Nurse Name: Caitlyn Bowie MD Position: [facility] Primary Care Physician Member Role: PCP Address: Address: [address] [place] [address]- Name: Sheeba García Position: [facility] RN Member Role: Primary Care Nurse Name: Kiki Abdi RN Position: [facility] RN Member Role: Primary Care Nurse Name: Marry Reza Position: [facility] RN Member Role: Primary Care Nurse Name: Veronica Hurst [place] Position: [facility] PCO RN Member Role: Lifetime Consulting Physician Name: Maddie Herrera RN Position: [facility] RN Member Role: Primary Care Nurse Name: Raegan Baptiste RN Position: [facility] RN Member Role: Primary Care Nurse Name: Svitlana Marcum RN Position: [facility] AMB Nurse Member Role: Primary Care Nurse Name: She Pool Position: [facility] RN Member Role: Primary Care Nurse Name: Kaila Latham RN Position: S RN Member Role: Primary Care Nurse Name: Julio C Bahena Position: [facility] RN Member Role: Primary Care Nurse Name: Nasima Heredia RN Position: [facility] RN Member Role: Primary Care Nurse Name: Katherine Nixon PharmD Position: [facility] Associate Professional Member Role: Lifetime Consulting Provider Address: Address: [address] [place] [address] Name: Daphne Barton RN Position: [facility] RN Member Role: Primary Care Nurse Name: Katherine Long RN Position: [facility] RN Member Role: Primary Care Nurse Name: Norma Serrano RN Position: [facility] RN Member Role: Primary Care Nurse Name: Seven Kelly RN Position: [facility] RN Member Role: Primary Care Nurse Name: Fani Perez RN Position: [facility] RN Member Role: Primary Care Nurse Name: Hattie Brewster RN Position: [facility] RN Member Role: Primary Care Nurse Name: Yudith Rothman RN Position: [facility] Onco RN Member Role: Primary Care Nurse Name: Kelly Hernandez RN Position: [facility] RN Member Role: Primary Care Nurse Name: Parris Zuluaga RN Position: [facility] RN Member Role: Primary Care Nurse Care Team Related Persons Name: ZENAIDA FLORES Address: [place], [place] Name: TIA RIVERS Address: [address] [address] Name: JOHANN RETANA Address: [place] [address]
--- OUTSIDE RECORDS SUMMARY | 2023-10-14 16:36 | XMS_ITS | Continuity of Care Document ---
Author Organization [facility] Address [address] [place] [address]- Care Team Providers Care Route Manager Name Role Phone Caitlyn Bowie MD Primary Care Physician [phone] [place] [facility] [place]): 03/18/21 - 03/25/21 [facility] [address] [place], [place] [address] Encounter Diagnosis Hypoxia(Discharge Diagnosis) - 03/18/21 Diverticulitis(Discharge Diagnosis) - 03/18/21 Attending Physician: Caitlyn Bowie MD Allergies, Adverse Reactions, Alerts Substance Reaction Severity Status ciprofloxacin Active gentamicin Active erythromycin Active penicillin 1 Active vancomycin Active ipratropium Active barium sulfate Active iodinated radiocontrast dyes Active Voltaren Active Zithromax Active Flagyl Active Novocain Active Biaxin Active Gastrografin Active Levaquin Avocado Active Avelox Active Bee Stings Active morphine Active sulfa drugs Active Contrast Dye Active Mold Active Avocado Active Shrimp Active 1Allergy testing doen 09/26 [...] times a day, Dr. primo Renee at [facility], per pt, # 30 tablet, 0 Refills, [...] Dates Health Status Cl inical Service Informant Hypoxia Discharge Diagnosis 03/18/21 Diverticulitis Discharge Diagnosis 03/18/21 Social History Social History Type Response Smoking Status Never smoker; Tobacc o user in household: No entered on: 04/05/17 Sex
--- OUTSIDE RECORDS SUMMARY | 2023-10-14 16:36 | XMS_ITS | Continuity of Care Document ---
Author Organization [facility] Address [address] [place] [address]- Care Team Providers Care Toll Line Mechanic Name Role Phone Caitlyn Bowie MD Primary Care Physician [phone] Encounter [facility] [place] Date(s): 12/21/22 - 01/20/23 [facility] [address] [place] [address]- Attending Physician: Melissa Morrison Admitting Physician: Melissa Morrison Referring Physician: Melissa Morrison Referring Physician: Toyin Cm Referring Physician: Merissa Williamson Allergies, Adverse Reactions, Alerts Substance Reaction Severity Status ciprofloxacin Active gentamicin Active erythromycin Active penicillin 1 Active vancomycin Active morphine Active barium sulfate Active sulfa drugs Active iodinated radiocontrast dyes Active Voltaren Active Zithromax Active Flagyl Active Novocain Active Biaxin Active Gastrografin Active Levaquin Avocado Active busPIRone Feeling of throat ti ghtness Headache Dizziness Active ipratropium Active Bee Stings Active Contrast Dye Active Mold Active Shrimp Active Avocado Active Avelox Active 1Allergy testing doen 09/26 was negative [...] 0 Refills, Maintenance, 09/09/22 11:47:00EST, [facility], Partial fill upon patient request [...] Refills, Maintenance, 12/29/22 11:57:00 EDT, [facility] #[facility], Partial fill upon patient request [...] Care Team Personnel Name: Val Wynne Position: [facility] Onco RN Member Role: Primary Care Nurse Name: Karen Pittman RN Position: S RN Member Role: Primary Care Nurse Name: Shilpi Mattson Position: Reference Physician Member Role: Primary Care Nurse Address: Address: [address] [place] [address]- Name: Toyin Doherty RN Position: S RN Member Role: Primary Care Nurse Name: Eben Hernandez NP Position: S Associate Professional Member Role: Lifetime Consulting Provider Address: Address: [address] [place] [address]- Name: Alejandrina Turner RN Position: S RN Member Role: Primary Care Nurse Name: Zoraida Felix RN Position: S RN Member Role: Primary Care Nurse Name: Daphne Hooker RN Position: [facility] RN Member Role: Primary Care Nurse Name: Nasima Gonzalez RN Position: [facility] RN Loyda Member Role: Primary Care Nurse Name: Caitlyn Bowie MD Position: [facility] Physician - Primary Care Member Role: PCP Address: Address: [address] [place] [address]- Name: Kiki Abdi RN Position: [facility] RN Member Role: Primary Care Nurse Name: Marry Reza Position: [facility] RN Member Role: Primary Care Nurse Name: Veronica Hurst MA Position: [facility] SALLY MA Member Role: Lifetime Consulting Physician Name: Maddie Herrera RN Position: [facility] AMB Nurse Member Role: Primary Care Nurse Name: Raegan Baptiste RN Position: [facility] RN Member Role: Primary Care Nurse Name: Svitlana Marcum RN Position: [facility] AMB Nurse Member Role: Primary Care Nurse Name: She Pool Position: [facility] RN Member Role: Primary Care Nurse Name: Kaila Latham RN Position: [facility] RN Member Role: Primary Care Nurse Name: Julio C Bahena Position: [facility] RN Member Role: Primary Care Nurse Name: Nasima Heredia RN Position: [facility] RN Member Role: Primary Care Nurse Name: Katherine Nixon PharmD Position: [facility] Associate Professional Member Role: Lifetime Consulting Provider Address: Address: [address] [place] [address]- Name: Daphne Barton RN Position: [facility] RN Member Role: Primary Care Nurse Name: Katherine Long RN Position: [facility] RN Member Role: Primary Care Nurse Name: Norma Serrano RN Position: [facility] RN Member Role: Primary Care Nurse Name: Seven Kelly RN Position: [facility] RN Member Role: Primary Care Nurse Name: Fani Perez RN Position: [facility] RN Member Role: Primary Care Nurse Name: Hattie Brewster RN Position: [facility] RN Member Role: Primary Care Nurse Name: Yudith Rothman RN Position: [facility] Criss RN Member Role: Primary Care Nurse Name: Kelly Hernandez RN Position: [facility] RN Member Role: Primary Care Nurse Name: Parris Zuluaga RN Position: [facility] RN Member Role: Primary Care Nurse Care Team Related Persons Name: ZENAIDA FLORES Address: [place] [address] Name: TIA RIVERS Address: [place] [address] Name: JOHANN RETANA Address: [place] [address]
--- OUTSIDE RECORDS SUMMARY | 2023-10-14 16:36 | XMS_ITS | Continuity of Care Document ---
Author Organization [facility] ter Address [address] [place] [address]- Care Team Providers Care Baker Head Name Role Phone Peewee STARK, Sharon Primary Care Physician ( [phone] [place] [facility] [place]/19/19 - 08/19/[address] [address]- [facility] Attending Physician: Kevin Yao MD Allergies, Adverse Reactions, Alerts Substance Reaction [...] By Mouth, Daily, Dr. primo Renee at [facility], # 30 tablet, 0 Refills, Maintenance, 01/26/18 [...]
--- OUTSIDE RECORDS SUMMARY | 2023-10-14 16:36 | XMS_ITS | Continuity of Care Document ---
Author Organization [facility] Address [address] [place] [address]- Care Team Providers Care Ammunition And Explosives Handler Name Role Phone Caitlyn Bowie MD Primary Care Physician [phone] Encounter [facility] Date(s): 10/03/22 - 11/02/22 [facility] [address] [place] [address]- [place] Allergies, Adverse Reactions, Alerts Substance Reaction Severity Status ciprofloxacin Active erythromycin Active penicillin 1 Active morphine Active barium sulfate Active sulfa drugs Active iodinated radiocontrast dyes Active Voltaren Active Zithromax Active Flagyl Active Novocain Active gentamicin Active vancomycin Active busPIRone Feeling of throat ti ghtness Headache Dizziness Active ipratropium Active Biaxin Active Gastrografin Active Avelox Active Bee Stings Active Contrast Dye Active Avocado Active Levaquin Avocado Active Mold Active Shrimp Active 1Allergy [...] Care Team Personnel Name: Val Wynne Position: [facility] Onco RN Member Role: Primary Care Nurse Name: Karen Pittman RN Position: S RN Member Role: Primary Care Nurse Name: Shilpi Mattson Position: Reference Physician Member Role: Primary Care Nurse Address: Address: [address] [place] [address] [address] [place] [address]- [place] Name: Toyin Doherty RN Position: S RN Member Role: Primary Care Nurse Name: Eben Hernandez NP Position: [facility] Associate Professional Member Role: Lifetime Consulting Provider Address: Address: [address] [place] [address]- Name: Alejandrina Turner RN Position: [facility] RN Member Role: Primary Care Nurse Name: Zoraida Felix RN Position: [facility] RN Member Role: Primary Care Nurse Name: Daphne Hooker RN Position: [facility] RN Member Role: Primary Care Nurse Name: Nasima Gonzalez RN Position: [facility] RN Supv Member Role: Primary Care Nurse Name: Caitlyn Bowie MD Position: [facility] Primary Care Physician Member Role: PCP Address: Address: [address] [place] [address]- Name: Sheeba García Position: S RN Member Role: Primary Care Nurse Name: Kiki Abdi RN Position: S RN Member Role: Primary Care Nurse Name: Marry Reza Position: S RN Member Role: Primary Care Nurse Name: Veronica Hurst [place] Position: [facility] PCO RN Member Role: Lifetime Consulting Physician Name: Maddie Herrera RN Position: S RN Member Role: Primary Care Nurse Name: Raegan Baptiste RN Position: S RN Member Role: Primary Care Nurse Name: Svitlana Marcum RN Position: [facility] AMB Nurse Member Role: Primary Care Nurse Name: She Pool Position: [facility] RN Member Role: Primary Care Nurse Name: Kaila Latham RN Position: [facility] ED RN W/OE and Tasks Member Role: Primary Care Nurse Name: Julio C Bahena Position: [facility] RN Member Role: Primary Care Nurse Name: Nasima Heredia RN Position: [facility] RN Member Role: Primary Care Nurse Name: Katherine Nixon PharmD Position: [facility] Associate Professional Member Role: Lifetime Consulting Provider Address: Address: [address] [place] [address] Name: Daphne Barton RN Position: [facility] RN Member Role: Primary Care Nurse Name: Katherine Long RN Position: [facility] RN Member Role: Primary Care Nurse Name: Norma Serrano RN Position: [facility] RN Member Role: Primary Care Nurse Name: Seven Kelly RN Position: [facility] RN Member Role: Primary Care Nurse Name: Fani Perez RN Position: [facility] RN Member Role: Primary Care Nurse Name: Hattie Brewster RN Position: [facility] RN Member Role: Primary Care Nurse Name: Yudith Rothman RN Position: [facility] Onco RN Member Role: Primary Care Nurse Name: Kelly Hernandez RN Position: [facility] RN Member Role: Primary Care Nurse Name: Parris Zuluaga RN Position: [facility] RN Member Role: Primary Care Nurse Care Team Related Persons Name: ZENAIDA FLORES Address: [place], [place] Name: TIA RIVERS Address: home [address] [place] [address] Name: JOHANN RETANA Address: [place], [place]
--- OUTSIDE RECORDS SUMMARY | 2023-10-14 16:36 | XMS_ITS | Continuity of Care Document ---
Author Organization [facility] Address [address] [address]- Care Team Providers Care Desk Lieutenant Name Role Phone Caitlyn Bowie MD Primary Care Physician [phone] [place] [facility] [place]16[place]21 - 04/15/21 [facility] [address] [address] Allergies, Adverse Reactions, Alerts Substance Reaction [...] Pharmacy Electronically,... Start Date: 04/02/21 Status: Ordered magnesium oxide 500 mg oral [...] times a day, Dr. primo Renee at [place], per pt, # 30 tablet, 0 Refills, [...] Dry Weight Start Date: 02/24/21 Status: Ordered Problem List [...]
--- OUTSIDE RECORDS SUMMARY | 2023-10-14 16:36 | XMS_ITS | Continuity of Care Document ---
Author Organization [facility] Address [address] [address]- Care Team Providers Care Director Of Finance Name Role Phone Brennan Burnett MD Primary Care Physician [place] [facility] [place] 11/16/20 - 12/16/20 [facility] [address] [place] [address] Allergies, Adverse Reactions, Alerts Substance Reaction [...] times a day, Dr. primo Renee at [facility], per pt, # 30 tablet, 0 Refills, [...]
--- OUTSIDE RECORDS SUMMARY | 2023-10-14 16:36 | XMS_ITS | Continuity of Care Document ---
Author Organization [facility] Address [address] [place] [address]- Care Team Providers Care Maker Up Folding Name Role Phone Caitlyn Bowie MD Primary Care Physician [phone] Encounter [facility] Date(s): 05/17/23 - 06/16/23 [facility] [address] [place], [place] [address] Attending Physician: Admtr, [id number] Admitting Physician: Admtr, [...] 23-valent vaccine 03/25/16 Given pneumococcal 23-valent vaccine 10/31/11 Given SARS-CoV-2 (COVID-19) mRNA-1273 vaccine 09/03/20 R [...] on: 04/05/17 Sex Cardiology * Event Display: Cardiology Office Note, Non-BH Authored Date: * Event Display: Cardiology Office Note, Non-BH Authored Date: * Event Display: Non BH Cardiovascular Results Authored Date: * Event Display: Non BH Cardiovascular Results Authored Date: * Event Display: Non BH Cardiovascular Results Authored Date: Laboratory * Event Display: Non BH Lab Results Authored Date: * Event Display: Non BH Lab Results Authored Date: * Event Display: Non BH Lab Results Authored Date: * Event Display: Non BH Lab Results Authored Date: Cardiology Consult note * Event Display: Consult Note Cardiology Authored Date: Radiology * Event Display: NM Nuclear Medicine, Non-BH Authored Date: * Event Display: Ultrasound Lower Extremity, Non-BH Authored Date: * Event Display: X-Ray Spine, Non- BH Authored Date: * Event Display: X-Ray Spine, Non- BH Authored Date: * Event Display: CT Scan Head, Non- BH Authored Date: * Event Display: X-Ray Abdomen, Non- BH Authored Date: * Event Display: NM Nuclear Medicine, Non- Authored Date: * Event Display: X-Ray Chest, Non- Authored Date: Patient Care team information Care Team Personnel Name: Val Wynne Position: S Onco RN Member Role: Primary Care Nurse Name: Karen Pittman RN Position: S RN Member Role: Primary Care Nurse Name: Shilpi Mattson Position: Reference Physician Member Role: Primary Care Nurse Address: Address: [address] [place] [phone]- [place] Name: Toyin Doherty RN Position: [facility] RN Member Role: Primary Care Nurse Name: Eben Hernandez NP Position: [facility] Associate Professional Member Role: Lifetime Consulting Provider Address: Address: [address] [place] [phone]- [place] Name: Alejandrina Turner RN Position: [facility] RN Member Role: Primary Care Nurse Name: Zoraida Felix RN Position: [facility] ED RN W/OE and Tasks Member Role: Primary Care Nurse Name: Daphne Hooker RN Position: [facility] RN Member Role: Primary Care Nurse Name: Nasima Gonzalez RN Position: [facility] RN Loyda Member Role: Primary Care Nurse Name: Caitlyn Bowie MD Position: [facility] Physician - Primary Care Member Role: PCP Address: Address: [address] [place] [address]- [place] Name: Kiki Abdi RN Position: [facility] RN Member Role: Primary Care Nurse Name: Marry Reza Position: S RN Member Role: Primary Care Nurse Name: Veronica Hurst MA Position: [facility] SALLY MA Member Role: Lifetime Consulting Physician Name: Yudith Ruiz RN Position: [facility] Onco RN Member Role: Primary Care Nurse Name: Maddie Herrera RN Position: [facility] AMB Nurse Member Role: Primary Care Nurse Name: Raegan Baptiste RN Position: [facility] RN Member Role: Primary Care Nurse Name: She Pool Position: S RN Member Role: Primary Care Nurse Name: Kaila Latham RN Position: [facility] RN Member Role: Primary Care Nurse Name: Julio C Bahena Position: [facility] RN Member Role: Primary Care Nurse Name: Nasima Heredia RN Position: [facility] RN Member Role: Primary Care Nurse Name: Katherine Nixon PharmD Position: [facility] Associate Professional Member Role: Lifetime Consulting Provider Address: Address: [address] [place] [address] Name: Daphne Barton RN Position: [facility] RN Member Role: Primary Care Nurse Name: Katherine Long RN Position: [facility] RN Member Role: Primary Care Nurse Name: Norma Serrano RN Position: [facility] RN Member Role: Primary Care Nurse Name: Seven Kelly RN Position: [facility] RN Member Role: Primary Care Nurse Name: Fani Perez RN Position: [facility] RN Member Role: Primary Care Nurse Name: Hattie Brewster RN Position: [facility] RN Member Role: Primary Care Nurse Name: Kelly Hernandez RN Position: [facility] RN Member Role: Primary Care Nurse Name: Pallavi Wylie LPN Position: [facility] RN Member Role: Primary Care Nurse Name: Parris Zuluaga RN Position: [facility] RN Member Role: Primary Care Nurse Care Team Related Persons Name: ZENAIDA FLORES Address: [place] [address] Name: TIA RIVERS Address: [place] [address] Name: JOHANN RETANA Address: [place] [address]
--- OUTSIDE RECORDS SUMMARY | 2023-10-14 16:37 | XMS_ITS | Continuity of Care Document ---
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(Discharge Diagnosis) - 10/07/21 CHF - Congestive heart failure(Discharge Diagnosis) - 10/07/21 Hematoma of right lower leg(Discharge Diagnosis) - 10/07/21 Antiphospholipid syndrome(Discharge Diagnosis) - 10/07/21 Attending Physician: Caitlyn Bowie MD Allergies, Adverse Reactions, Alerts Substance Reaction Severity Status ciprofloxacin Active erythromycin Active busPIRone Feeling of throat ti ghtness Headache Dizziness Active barium sulfate Active iodinated radiocontrast dyes Active Voltaren Active gentamicin Active penicillin 1 Active vancomycin Active ipratropium [...] disease) from second hand smoke Discharge Diagnosis 10/07/21 CHF - Congestive heart failure Discharge Diagnosis 10/07/21 Hematoma of right lower leg Discharge Diagnosis 10/07/21 Antiphospholipid syndrome Discharge Diagnosis 10/07/21 Vital Signs Most recent to oldest [Reference Range]: 1 Height 160 cm (10/07/21 9:32 AM) Weight 56 kg (10/07/21 9:32 AM) Oxygen Saturation [94-100 %] 96 % (10/07/21 9:32 AM) Pulse Rate [55-90 bpm] 84 bpm (10/07/21 9:32 AM) Body Mass Index [18.5-24.99] 21.88 (10/07/21 9:32 AM) Blood Pressure [90-138/55-84 mm Hg] 102/ 54mm Hg (10/07/21 9:32 AM) Respiratory Rate [16-30 br/min] 18 br/mi n (10/07/21 9:32 AM) Temperature [96.8-100.4 DegF] 99.0 DegF (10/07/21 9:32 AM) Mode of Delivery (Oxygen) Room air (10/07/21 9:32 AM) Blood pressure sites Arm, right (10/07/21 9:32 AM) Temperature Route Temporal (10/07/21 9:32 AM) Weight Obtained Via Standing scale (10/07/21 9:32 AM) Social History Social History Type Response Smoking Status Never smoker; Tobacc o user in household: No entered on: 04/05/17 Sex
--- OUTSIDE RECORDS SUMMARY | 2023-10-14 16:37 | XMS_ITS | Continuity of Care Document ---
Author Organization [facility] Address [address] [place] [address]- Care Team Providers Care Thermometer Maker Name Role Phone Caitlyn Bowie MD Primary Care Physician [facility]counter [facility] Date(s): 08/17/21 - 09/16/21 [facility] [address] [place], [place] [address] Allergies, Adverse Reactions, Alerts Substance Reaction [...]
--- OUTSIDE RECORDS SUMMARY | 2023-10-14 16:37 | XMS_ITS | Continuity of Care Document ---
Author Organization [facility] Address [address] [place] [address]- Care Team Providers Care Data Officer Name Role Phone Caitlyn Bowie MD Primary Care Physician [phone] Encounter [facility] Date(s): 08/23/23 - 09/22/23 [facility] [address] [place], [place] [address] Attending Physician: Prince, Melissa Admitting Physician: AdmtrMelissa Referring Physician: Admtr, [id number] Allergies, Adverse Reactions, Alerts Substance Reaction Severity Status ciprofloxacin Active penicillin 1 Active morphine Active barium sulfate Active sulfa drugs Active gentamicin Active clindamycin throat tightening Active erythromycin Active vancomycin Active busPIRone Feeling of throat ti ghtness Headache Dizziness Active ipratropium Active Biaxin Active iodinated radiocontrast dyes Active Voltaren Active [...] Display: Cardiology Office Note, Non-BH Authored Date: [id number] * Event Display: Cardiology Office Note, Non-BH Authored Date: [id number] * Event Display: Non BH Cardiovascular Results [...] Cardiology Authored Date: Radiology * Event Display: X-Ray Chest, Non- BH Authored Date: * Event Display: X-Ray Chest, Non- BH Authored Date: * Event Display: NM Nuclear Medicine, Non-BH Authored Date: * Event Display: Ultrasound Lower Extremity, Non-BH Authored Date: * Event Display: X-Ray Spine, Non- BH Authored Date: * Event Display: X-Ray Spine, Non- BH Authored Date: * Event Display: CT Scan Head, Non- BH Authored Date: * Event Display: X-Ray Abdomen, Non- BH Authored Date: * Event Display: NM Nuclear Medicine, Non-BH Authored Date: * Event Display: X-Ray Chest, Non- BH Authored Date: Patient Care team information Care Team Personnel Name: Val Wynne Position: [facility] Onco RN Member Role: Primary Care Nurse Name: Karen Pittman RN Position: S RN Member Role: Primary Care Nurse Name: Shilpi Mattson Position: Reference Physician Member Role: Primary Care Nurse Address: Address: [address] [place] [address]- Name: Toyin Doherty RN Position: S RN Member Role: Primary Care Nurse Name: Eben Hernandez NP Position: [facility] Associate Professional Member Role: Lifetime Consulting Provider Address: Address: [address] [place] [address]- Name: Alejandrina Turner RN Position: [facility] RN Member Role: Primary Care Nurse Name: Zoraida Felix RN Position: [facility] ED RN W/OE and Tasks Member Role: Primary Care Nurse Name: Jaye Harley Position: [facility] MA Surgical Supervisor Member Role: Prototype Model Maker Name: Daphne Hooker RN Position: [facility] RN Member Role: Primary Care Nurse Name: Caitlyn Bowie MD Position: [facility] Physician - Primary Care Member Role: PCP Address: Address: [address] [place] [address]- Name: Kiki Abdi RN Position: [facility] RN Member Role: Primary Care Nurse Name: Marry Reza Position: [facility] RN Member Role: Primary Care Nurse Name: Veronica Hurst MA Position: [facility] SALLY MA Member Role: Lifetime Consulting Physician Name: Maddie Herrera RN Position: [facility] AMB Nurse Member Role: Primary Care Nurse Name: Yudith Herrera RN Position: [facility] Onco RN Member Role: Primary Care Nurse Name: Raegan Baptiste RN Position: [facility] RN Member Role: Primary Care Nurse Name: She Pool Position: [facility] RN Member Role: Primary Care Nurse Name: Kaila Latham RN Position: [facility] RN Member Role: Primary Care Nurse Name: Julio C Bahena Position: [facility] RN Member Role: Primary Care Nurse Name: Nasima Heredia RN Position: [facility] RN Member Role: Primary Care Nurse Name: Katherine Nixon PharmD Position: [facility] Associate Professional Member Role: Lifetime Consulting Provider Address: Address: [address] [place] [address]- [place] Name: Daphne Barton RN Position: [facility] RN Member Role: Primary Care Nurse Name: Katherine Long RN Position: [facility] RN Member Role: Primary Care Nurse Name: Norma Serrano RN Position: [facility] RN Member Role: Primary Care Nurse Name: Seven Kelly RN Position: [facility] MADELINE RN W/OE and Tasks Member Role: Primary Care Nurse Name: Fani Perez RN Position: [facility] RN Member Role: Primary Care Nurse Name: Hattie Brewster RN Position: S RN Member Role: Primary Care Nurse Name: Kelly Hernandez RN Position: [facility] RN Member Role: Primary Care Nurse Name: Pallavi Wylie LPN Position: [facility] RN Member Role: Primary Care Nurse Name: Parris Zuluaga RN Position: [facility] RN Member Role: Primary Care Nurse Care Team Related Persons Name: MARK ZENAIDA Address: [place] [address] Name: TIA RIVERS Address: [place] [address] Name: JOHANN RETANA Address: [place] [address]
--- OUTSIDE RECORDS SUMMARY | 2023-10-14 16:37 | XMS_ITS | Continuity of Care Document ---
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(Discharge Diagnosis) - 02/15/21 CHF - Congestive heart failure(Discharge Diagnosis) - 02/15/21 Antiphospholipid syndrome(Discharge Diagnosis) - 02/15/21 Heterozygous Factor V Leiden mutation(Discharge Diagnosis) - 02/15/21 Hypothyroidism(Discharge Diagnosis) - 02/15/21 NSCLC - Non-small cell lung cancer - Stage IIIA T2N2 adenocarcinoma, LLL resection, chemo, XRT(Discharge Diagnosis) - 02/15/21 Sleep apnea, CPAP(Discharge Diagnosis) - 02/15/21 Attending Physician: Caitlyn Bowie MD Allergies, Adverse Reactions, Alerts Substance Reaction Severity Status ciprofloxacin Active erythromycin Active barium sulfate Active Gastrografin Active Levaquin Avocado Active gentamicin Active penicillin 1 Active vancomycin Active morphine [...] inactivated 04/16/17 Give n pneumococcal 23-valent vaccine 9/16/16 Given pneumococcal 23-valent vaccine 05/09/11 Given tetanus/diphtheria/pertussis, [...] times a day, Dr. primo Renee at [place], per pt, # 30 tablet, 0 Refills, [...] opioid drug. Start Date: 02/15/21 Status: Ordered Probiotic Formula By Mouth, Daily, 0 Refills, Maintenance, 02/15/21 12:07:00 EDT, Partial fill upon patient request if the prescription is for a schedule II opioid drug. Start Date: 02/15/21 Status: Ordered Probiotic Formula oral capsule 1 [...] disease) from second hand smoke Discharge Diagnosis 02/15/21 CHF - Congestive heart failure Discharge Diagnosis 02/15/21 Antiphospholipid syndrome Discharge Diagnosis 02/15/21 Heterozygous Factor V Leiden mutation Discharge Diagnosis 02/15/21 Hypothyroidism Discharge Diagnosis 02/15/21 NSCLC - Non-small cell lung cancer - Stage IIIA T2N2 adenocarcinoma, LLL resection, chemo, XRT Discharge Diagnosis 02/15/21 Sleep apnea, CPAP Discharge Diagnosis 02/15/21 Vital Signs Most recent to oldest [Reference Range]: 1 Height 160 cm (02/15/21 11:29 AM) Weight 60.1 kg (02/15/21 11:29 AM) Oxygen Saturation [94-100 %] 96 % (02/15/21 11: AM) Pulse Rate [55-90 bpm] 80 bpm (02/15/21 11: AM) Body Mass Index [18.5-24.99] 23.48 (02/15/21 11: AM) Blood Pressure [90-138/55-84 mm Hg] 102/ 48mm Hg (02/15/21 11: AM) Respiratory Rate [16-30 br/min] 18 br/mi n (02/15/21 11:29 AM) Temperature [96.8-100.4 DegF] 98.4 DegF (02/15/21 11:29 AM) Mode of Delivery (Oxygen) Room air (02/15/21 11:29 AM) Blood pressure sites Arm, right (02/15/21 11:29 AM) Temperature Route Temporal (02/15/21 11: AM) Weight Obtained Via Standing scale (02/15/21 11:29 AM) Social History Social History Type Response Smoking Status Never smoker; Tobacc o user in household: No entered on: 04/05/17 Sex
--- OUTSIDE RECORDS SUMMARY | 2023-10-14 16:37 | XMS_ITS | Continuity of Care Document ---
Author Organization [facility] Address [address] [place] [address]- Care Team Providers Care Press Assistant And Feeder Name Role Phone Brennan Burnett MD Primary Care Physician Encounter [facility] [place] Date(s): 04/30/20 - 08/28/20 [facility] [address] [place] [address]- Attending Physician: Cristofer Spivey MD Admitting Physician: Cristofer Spivey MD Referring Physician: Cristofer Spivey MD Allergies, Adverse Reactions, Alerts Substance Reaction Severity Status ciprofloxacin Active barium sulfate Active iodinated radiocontrast dyes Active Gastrografin Active Levaquin Avocado Active gentamicin Active erythromycin Active penicillin 1 Active vancomycin Active morphine Active sulfa drugs Active Voltaren Active Zithromax [...] By Mouth, Daily, Dr. primo Renee at [place], # 30 tablet, 0 Refills, Maintenance, 01/26/18 [...]
--- OUTSIDE RECORDS SUMMARY | 2023-10-14 16:37 | XMS_ITS | Continuity of Care Document ---
Author Organization [facility] Address [address] [place] [address]- Care Team Providers Care Sales Marketing Manager Name Role Phone Caitlyn Bowie MD Primary Care Physician [facility]counter [facility] Date(s): 05/29/23 - 06/28/23 [facility] [address] [place], [place] [address] Allergies, Adverse Reactions, Alerts Substance [...] Care Team Personnel Name: Val Wynne Position: [facility] Onco RN Member Role: Primary Care Nurse Name: Karen Pittman RN Position: [facility] RN Member Role: Primary Care Nurse Name: Shilpi Mattson Position: Reference Physician Member Role: Primary Care Nurse Address: Address: [address] [place] [address]- [place] Name: Toyin Doherty RN Position: [facility] RN Member Role: Primary Care Nurse Name: Eben Hernandez NP Position: [facility] Associate Professional Member Role: Lifetime Consulting Provider Address: Address: [address] [place] [phone]- [place] Name: Alejandrina Turner RN Position: [facility] RN Member Role: Primary Care Nurse Name: Zoraida Felix RN Position: [facility] ED RN W/OE and Tasks Member Role: Primary Care Nurse Name: Daphne Hooker RN Position: [facility] RN Member Role: Primary Care Nurse Name: Nasima Gonzalez RN Position: [facility] RN Supv Member Role: Primary Care Nurse Name: Caitlyn Bowie MD Position: [facility] Physician - Primary Care Member Role: PCP Address: Address: [address] [place] [phone]- [place] Name: Kiki Abdi RN Position: [facility] RN Member Role: Primary Care Nurse Name: Marry Reza Position: S RN Member Role: Primary Care Nurse Name: Veronica Hurst MA Position: [facility] SALLY JORGENSEN Member Role: Lifetime Consulting Physician Name: Yudith Ruiz RN Position: [facility] Onco RN Member Role: Primary Care Nurse Name: Maddie Herrera RN Position: [facility] AMB Nurse Member Role: Primary Care Nurse Name: Raegan Baptiste RN Position: [facility] RN Member Role: Primary Care Nurse Name: She Pool Position: [facility] RN Member Role: Primary Care Nurse Name: Kaila Latham RN Position: [facility] RN Member Role: Primary Care Nurse Name: Julio C Bahena Position: [facility] RN Member Role: Primary Care Nurse Name: Nasima Heredia RN Position: [facility] RN Member Role: Primary Care Nurse Name: Katherine Nixon PharmD Position: [facility] Associate Professional Member Role: Lifetime Consulting Provider Address: Address: [address] [place] [address] Name: Daphne Barton RN Position: [facility] RN Member Role: Primary Care Nurse Name: Katherine Long RN Position: [facility] RN Member Role: Primary Care Nurse Name: Norma Serrano RN Position: [facility] RN Member Role: Primary Care Nurse Name: Seven Kelly RN Position: [facility] RN Member Role: Primary Care Nurse Name: Fani Perez RN Position: [facility] RN Member Role: Primary Care Nurse Name: Hattie Brewster RN Position: [facility] RN Member Role: Primary Care Nurse Name: Kelly Hernandez RN Position: [facility] RN Member Role: Primary Care Nurse Name: Pallavi Wylie LPN Position: [facility] RN Member Role: Primary Care Nurse Name: Parris Zuluaga RN Position: [facility] RN Member Role: Primary Care Nurse Care Team Related Persons Name: MARK ZENAIDA Address: [place] [address] Name: TIA RIVERS Address: [place] [address] Name: JOHANN RETANA Address: [place] [address]
--- OUTSIDE RECORDS SUMMARY | 2023-10-14 16:37 | XMS_ITS | Continuity of Care Document ---
Author Organization [facility] Address [address] [place] [address]- Care Team Providers Care Information Clerk [employer] Name Role Phone Caitlyn Bowie MD Primary Care Physician [facility] Date[facility]): 04/05/23 - 05/05/23 [facility] [address] [place], [place] [address] Allergies, Adverse Reactions, Alerts Substance [...] Partial patrice... Start Date: 04/05/23 Status: Ordered docusate sodium 100 mg oral [...] Member Role: Primary Care Nurse Address: Address: [address] [place] [address]- Name: Toyin Doherty RN Position: S RN Member Role: Primary Care Nurse Name: Eben Hernandez NP Position: [facility] Associate Professional Member Role: Lifetime Consulting Provider Address: Address: [address] [place] [address]- Name: Alejandrina Turner RN Position: [facility] RN Member Role: Primary Care Nurse Name: Zoraida Felix RN Position: [facility] RN Member Role: Primary Care Nurse Name: Daphne Hooker RN Position: [facility] RN Member Role: Primary Care Nurse Name: Nasima Gonzalez RN Position: [facility] RN Supv Member Role: Primary Care Nurse Name: Caitlyn Bowie MD Position: [facility] Physician - Primary Care Member Role: PCP Address: Address: [address] [place] [address]- Name: Kiki Abdi RN Position: [facility] RN Member Role: Primary Care Nurse Name: Marry Reza Position: S RN Member Role: Primary Care Nurse Name: Veronica Hurst MA Position: [facility] SALLY MA Member Role: Lifetime Consulting Physician Name: Yudith Ruiz RN Position: [facility] Onco RN Member Role: Primary Care Nurse Name: Maddie Herrera RN Position: [facility] AMB Nurse Member Role: Primary Care Nurse Name: Raegan Baptiste RN Position: [facility] RN Member Role: Primary Care Nurse Name: She Pool Position: [facility] RN Member Role: Primary Care Nurse Name: Kaila Latham RN Position: [facility] RN Member Role: Primary Care Nurse Name: Julio C Bahena Position: S RN Member Role: Primary Care Nurse Name: Nasima Heredia RN Position: [facility] RN Member Role: Primary Care Nurse Name: Katherine Nixon PharmD Position: [facility] Associate Professional Member Role: Lifetime Consulting Provider Address: Address: [address] [place] [address] Name: Daphne Barton RN Position: [facility] RN Member Role: Primary Care Nurse Name: Katherine Long RN Position: [facility] RN Member Role: Primary Care Nurse Name: Norma Serrano RN Position: [facility] RN Member Role: Primary Care Nurse Name: Seven Kelly RN Position: [facility] RN Member Role: Primary Care Nurse Name: Fani Perez RN Position: [facility] RN Member Role: Primary Care Nurse Name: Hattie Brewster RN Position: [facility] RN Member Role: Primary Care Nurse Name: Kelly Hernandez RN Position: [facility] RN Member Role: Primary Care Nurse Name: Pallavi Wylie LPN Position: [facility] RN Member Role: Primary Care Nurse Name: Parris Zuluaga RN Position: [facility] RN Member Role: Primary Care Nurse Care Team Related Persons Name: ZENAIDA FLORES Address: [place], [place] Name: TIA RIVERS Address: [place] [address] Name: JOHANN RETANA Address: [place], [place]
--- OUTSIDE RECORDS SUMMARY | 2023-10-14 16:37 | XMS_ITS | Continuity of Care Document ---
Author Organization [facility] Address [address] [place] [address]- Care Team Providers Care Senior Mobile Application Developer Name Role Phone Caitlyn Bowie MD Primary Care Physician [facility] Date(s): 10/08/21 - 11/07/21 [facility] [address] [place], [place] [address] Allergies, Adverse Reactions, Alerts Substance Reaction [...] opioid drug. Start Date: 09/24/21 Status: Ordered baclofen 5 mg oral tablet See Instructions, PRN as needed for muscle spasm, 1/2 tablet By Mouth daily, # 10 tablet, 0 Refills, Maintenance, 11/02/21 15:01:00 EDT, Tablet, [facility], Partial fill upon patient request if the prescription is for a schedule II opioi... Start Date: 11/02/21 Status: Ordered cetirizine 10 mg oral tablet [...] day, 0 Refills, Maintenance, 11/06/21 12:44:00 EDT, [place], Partialfill upon patient request if the prescription [...] opioid drug. Start Date: 11/06/21 Status: Ordered Tobradex 0.1%-0.3% ointment APPLY TO THE RIGHT EYE 3 TIMES DAILY FOR 1 WEEK Start Date: 11/06/21 Status: Ordered Toprol XL [...]
--- OUTSIDE RECORDS SUMMARY | 2023-10-14 16:37 | XMS_ITS | Continuity of Care Document ---
Author Organization [facility] Address [address] [place] [address]- Care Team Providers Care Mattress Stuffer Name Role Phone Brennan Burnett MD Primary Care Physician [phone] Encounter [facility] Date(s): 09/23/20 - 10/23/20 [facility] [address] [place] [address] Allergies, Adverse Reactions, Alerts Substance Reaction Severity [...] By Mouth, Daily, Dr. primo Renee at [place], # 30 tablet, 0 Refills, Maintenance, 01/26/18 [...]
--- OUTSIDE RECORDS SUMMARY | 2023-10-14 16:37 | XMS_ITS | Continuity of Care Document ---
Author Organization [facility] Address [address] [place] [address]- Care Team Providers Care Clinical Professor Name Role Phone Caitlyn Bowie MD Primary Care Physician [facility] Date(s): 05/05/21 - 06/04/21 [facility] [address] [place], [place] [address] Allergies, Adverse Reactions, Alerts Substance Reaction Severity Status ciprofloxacin Active gentamicin Active erythromycin Active penicillin 1 Active vancomycin Active ipratropium Active morphine Active barium sulfate Active sulfa drugs Active iodinated radiocontrast dyes Active Zithromax Active Flagyl Active Novocain Active Biaxin Active Gastrografin Active Levaquin Avocado Active Voltaren Active Avelox Active Bee Stings Active Contrast [...]
--- OUTSIDE RECORDS SUMMARY | 2023-10-14 16:38 | XMS_ITS | Continuity of Care Document ---
Author Organization [facility] Address [address] [place] [address]- Care Team Providers Care Communications Scientist Name Role Phone Caitlyn Bowie MD Primary Care Physician Encounter [facility] Date(s): 03/12/21 - 04/11/21 [facility] [address] [place] [address] Allergies, Adverse Reactions, Alerts Substance [...] times a day, Dr. primo Renee at [place], per pt, # 30 tablet, 0 Refills, [...]
--- OUTSIDE RECORDS SUMMARY | 2023-10-14 16:38 | XMS_ITS | Continuity of Care Document ---
Author Organization [facility] Address [address] [place] [address]- Care Team Providers Care Fraud Investigator Name Role Phone Caitlyn Bowie MD Primary Care Physician [phone] Encounter [facility] Date(s): 10/20/22 - 01/28/23 [facility] [address] [place] [address]- Attending Physician: Anish Neil MD Admitting Physician: Anish Neil MD Allergies, Adverse Reactions, Alerts Substance Reaction [...] Care Team Personnel Name: Val Wynne Position: [facility] Onco RN Member Role: Primary Care Nurse Name: Karen Pittman RN Position: [facility] RN Member Role: Primary Care Nurse Name: Shilpi Mattson Position: Reference Physician Member Role: Primary Care Nurse Address: Address: [address] [place] [address]- Name: Toyin Doherty RN Position: [facility] RN Member Role: Primary Care Nurse Name: Eben Hernandez NP Position: [facility] Associate Professional Member Role: Lifetime Consulting Provider Address: Address: [address] [place] [address]- Name: Alejandrina Turner RN Position: S RN Member Role: Primary Care Nurse Name: Zoraida Felix RN Position: S RN Member Role: Primary Care Nurse Name: Daphne Hooker RN Position: S RN Member Role: Primary Care Nurse Name: Nasima Gonzalez RN Position: [facility] RN Supv Member Role: Primary Care Nurse Name: Caitlyn Bowie MD Position: [facility] Physician - Primary Care Member Role: PCP Address: Address: [address] [place] [address]- Name: Kiki Abdi RN Position: [facility] RN Member Role: Primary Care Nurse Name: Marry Reza Position: [facility] RN Member Role: Primary Care Nurse Name: Veronica Hurst MA Position: [facility] AMB [place] Member Role: Lifetime Consulting Physician Name: Maddie Herrera RN Position: [facility] AMB Nurse Member Role: Primary Care Nurse Name: Raegan Baptiste RN Position: [facility] RN Member Role: Primary Care Nurse Name: Svitlana Marcum RN Position: [facility] AMB Nurse Member Role: Primary Care Nurse Name: She Pool Position: [facility] RN Member Role: Primary Care Nurse Name: Kaila Latham RN Position: [facility] RN Member Role: Primary Care Nurse Name: Julio C Bahena Position: [facility] RN Member Role: Primary Care Nurse Name: Nasima Heredia RN Position: [facility] RN Member Role: Primary Care Nurse Name: Katherine Nixon PharmD Position: [facility] Associate Professional Member Role: Lifetime Consulting Provider Address: Address: [address] [place] [address]- Name: Daphne Barton RN Position: [facility] RN Member Role: Primary Care Nurse Name: Katherine Long RN Position: [facility] RN Member Role: Primary Care Nurse Name: Norma Serrano RN Position: [facility] RN Member Role: Primary Care Nurse Name: Seven Kelly RN Position: [facility] RN Member Role: Primary Care Nurse Name: Fani Perez RN Position: [facility] RN Member Role: Primary Care Nurse Name: Hattie Brewster RN Position: [facility] RN Member Role: Primary Care Nurse Name: Yudith Rothman RN Position: [facility] Onco RN Member Role: Primary Care Nurse Name: Kelly Hernandez RN Position: [facility] RN Member Role: Primary Care Nurse Name: Parris Zuluaga RN Position: [facility] RN Member Role: Primary Care Nurse Care Team Related Persons Name: ZENAIDA FLORES Address: [place] [address] Name: TIA RIVERS Address: [place] [address] Name: JOHANN RETANA Address: [place] [address]
--- OUTSIDE RECORDS SUMMARY | 2023-10-14 16:38 | XMS_ITS | Continuity of Care Document ---
Author Organization [facility] Address [address] [place] [address]- Care Team Providers Care Trucking Manager Name Role Phone Azeb STARK, Caitlyn Thompson Primary Care Physician [facility] Date(s): 01/03/22 - 02/02/22 [facility] [address] [place] [address]- Allergies, Adverse Reactions, Alerts Substance Reaction Severity [...] EDT, Solution Start Date: 01/26/18 Status: Ordered cetirizine 10 mg oral tablet [...] day, 0 Refills, Maintenance, 11/06/21 12:44:00 EDT, [place], Partialfill upon patient request if the prescription [...] Refills, Maintenance, 11/09/21 9:33:00 EDT, [facility] Capsule, [facility] 3, Partial fill upon [...]
--- OUTSIDE RECORDS SUMMARY | 2023-10-14 16:38 | XMS_ITS | Continuity of Care Document ---
Author Organization [facility] Address [address] [place] [address]- Care Team Providers Care C Developer Name Role Phone Caitlyn Bowie MD Primary Care Physician [phone] [facility] Date(s): 08/20/21 - 09/19/21 [facility] [address] [place], [place] [address] Allergies, Adverse Reactions, Alerts Substance Reaction [...]
--- OUTSIDE RECORDS SUMMARY | 2023-10-14 16:38 | XMS_ITS | Continuity of Care Document ---
Author Organization [facility] Address [address] [place] [address]- Care Team Providers Care Shovel Engineer Name Role Phone Caitlyn Bowie MD Primary Care Physician Encounter [facility] Date(s): 09/08/23 - 10/08/23 [facility] [address] [place] [address]- Attending Physician: Melissa Morrison Admitting Physician: Melissa Morrison Referring Physician: Melissa Morrison Allergies, Adverse Reactions, Alerts Substance Reaction Severity [...] Cardiovascular Results Authored Date: * Event Display: Cardiology Office Note, Non-BH Authored Date: * Event Display: Cardiology Office Note, Non-BH Authored Date: * Event Display: Non BH Cardiovascular Results Authored Date: * Event Display: Non BH Cardiovascular Results Authored Date: * Event Display: Cardiology Office Note, Non-BH Authored Date: Laboratory * Event Display: Non BH Lab Results Authored Date: * Event Display: Non BH Lab Results Authored Date: * Event Display: Non BH Lab Results Authored Date: Patient Care team information Care Team Personnel Name: Val Wynne Position: S Onco RN Member Role: Primary Care Nurse Name: Karen Pittman RN Position: [facility] RN Member Role: Primary Care Nurse Name: Shilpi Mattson Position: Reference Physician Member Role: Primary Care Nurse Address: Address: [address] [place] [address]- [place] Name: Toyin Doherty RN Position: [facility] RN Member Role: Primary Care Nurse Name: Eben Hernandez NP Position: [facility] Associate Professional Member Role: Lifetime Consulting Provider Address: Address: [address] [place] [address]- [place] Name: Alejandrina Tunrer RN Position: [facility] RN Member Role: Primary Care Nurse Name: Zoraida Felix RN Position: [facility] ED RN W/OE and Tasks Member Role: Primary Care Nurse Name: Jaye Harley Position: [facility] Extension Course Counselor Member Role: Clasp Machine Operator Name: Daphne Hooker RN Position: [facility] RN Member Role: Primary Care Nurse Name: Caitlyn Bowie MD Position: [facility] Physician - Primary Care Member Role: PCP Address: Address: [address] [place] [address]- [place] Name: Kiki Abdi RN Position: [facility] RN Member Role: Primary Care Nurse Name: Marry Reza Position: [facility] RN Member Role: Primary Care Nurse Name: Veronica Hurst MA Position: [facility] SALLY MA Member Role: Lifetime Consulting Physician Name: Maddie Herrera RN Position: [facility] AMB Nurse Member Role: Primary Care Nurse Name: Yudith Herrera RN Position: [facility] Onco RN Member Role: Primary Care Nurse Name: Raegan Baptiste RN Position: [facility] RN Member Role: Primary Care Nurse Name: She Pool Position: [facility] RN Member Role: Primary Care Nurse Name: Kaila Latham RN Position: [facility] RN Member Role: Primary Care Nurse Name: Julio C Bahena Position: [facility] RN Member Role: Primary Care Nurse Name: Nasima Heredia RN Position: [facility] RN Member Role: Primary Care Nurse Name: Katherine Nixon PharmD Position: [facility] Associate Professional Member Role: Lifetime Consulting Provider Address: Address: [address] [place] [address]- [place] Name: Daphne Barton RN Position: S RN Member Role: Primary Care Nurse Name: Katherine Long RN Position: S RN Member Role: Primary Care Nurse Name: Norma Serrano RN Position: [facility] RN Member Role: Primary Care Nurse Name: Seven Kelly RN Position: [facility] ED RN W/OE and Tasks Member Role: Primary Care Nurse Name: Fani Perez RN Position: [facility] RN Member Role: Primary Care Nurse Name: Hattie Brewster RN Position: [facility] RN Member Role: Primary Care Nurse Name: Kelly Hernandez RN Position: [facility] RN Member Role: Primary Care Nurse Name: Pallavi Wylie LPN Position: [facility] RN Member Role: Primary Care Nurse Name: Parris Zuluaga RN Position: [facility] RN Member Role: Primary Care Nurse Care Team Related Persons Name: ZENAIDA FLORES Address: [place] [address] Name: TIA RIVERS Address: [place] [address] Name: JOHANN RETANA Address: [place] [address]
--- OUTSIDE RECORDS SUMMARY | 2023-10-14 16:38 | XMS_ITS | Continuity of Care Document ---
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 Date(s): 04/19/23 - 04/20/[address] [address] Discharge Disposition: A-D/C Home Attending Physician: Ketan Wells MD Admitting Physician: George Silva MD Referring Physician: Not on Staff, Referring MD Allergies, Adverse Reactions, Alerts Substance Reaction Severity Status ciprofloxacin Active busPIRone Feeling of throat ti ghtness Headache Dizziness Active barium sulfate Active iodinated radiocontrast dyes Active Zithromax Active Flagyl Active gentamicin Active erythromycin Active penicillin 1 Active vancomycin Active ipratropium Active morphine Active sulfa drugs Active Voltaren Active Biaxin Active Gastrografin Active Levaquin Avocado Active Novocain Active Bee Stings Active Contrast Dye Active [...] [facility]... Start Date: 02/22/23 Status: Ordered cefpodoxime 200 mg oral tablet 1 tablet = 200 mg, By Mouth, Every 12 hours, for 7 days, Please disregard the previous prescriptionfor Augmentin pl, # 14 tablet, 0 Refills, Acute 04/27/23 12:15:00 EDT, 04/20/23 12:15:00 EDT, Tablet, [facility], Partial fill upon patie... Start Date: 04/20/23 Stop Date: 04/27/23 Status: Ordered diazepam 5 mg oral tablet [...] Date: 03/24/23 Stop Date: 04/23/23 Status: Ordered Metoprolol Succinate ER 50 mg oral tablet, extended release 50 mg, XL Tablet, By Mouth, 04/20/23 9:00:00 EDT Start Date: 04/20/23 Stop Date: 04/20/23 Status: Completed omeprazole 40 mg oral enteric coated capsule [...] Exam Date Time Procedure Performing Provider Status 04/19/23 9:[address] Angio Abdomen Danita Ontiveros; Donna [facility] (Verified) Notes: (CT Angio Abdomen) Reason For Exam: Renal artery dissection suspected;Other: RESULT: CT Angio Abdomen EXAMINATION: CT Angio Chest and Abdomen. INDICATION: Hx of Present Illness: chest pain and HR was 129 and so I called the ambulance; Reason:Other:; Aortic disease, nontraumatic; Clinical Question(s): Other:; Aortic Dissection; Order Comment: TECHNIQUE: Spiral CTA of the chest and Abdomen was performed after rapid IV contrast administrationwithout cardiac gating. Images are formatted in multiple planes using 2-D multiplanar and 3-D maximum intensity projection. 100 cc of Omnipaque 300 was administered intravenously. Weight-based protocol using automatic tube modulation was used to optimize exposure parameters. CTDIvol Body: 6.50 mGy, DLP Body: 347 mGy*cm. COMPARISONS: 04/13/2022. ANGIOGRAPHIC FINDINGS: No pulmonary embolism to the subsegmental level. The main pulmonary artery is dilated measuring up to 3.1 cm, which can be seen with pulmonary hypertension. No acute aortic abnormality seen on this study performed without cardiac gating. Abdominal aorta: No aortic aneurysm or dissection. Diffuse vascular calcification. Celiac axis: Patent. Superior mesenteric artery: Patent. Right renal artery: Patent. Mild atherosclerotic calcification at the origin. Left renal artery: Patent. Inferior mesenteric artery: Patent. Visualized iliac arteries: Patent. NON-ANGIOGRAPHIC FINDINGS: Armature Winder Repair View Findings, Lines and Tubes: None. Trachea and Airways: Patent without evidence of tracheal or endobronchial lesion. Lungs and Pleura: Patchy airspace opacity in the right middle lobe. Post partial left lower lobectomy. Small left pleural effusion with associated atelectasis. Mild right basilar atelectasis. No pneumothorax. Mediastinum and artemio: No mass or hematoma. No mediastinal or hilar lymphadenopathy. No esophageal abnormality. Heart: Heart is normal in size. No pericardial effusion. Chest Wall Soft Tissues: Normal. Diaphragm and upper abdomen: No significant abnormality. ABDOMEN: Liver: Normal. Biliary: Normal. No intra or extrahepatic biliary ductal dilation. The gallbladder is unremarkable. Spleen: Normal. Pancreas: Normal. Adrenals: Normal. Kidneys: Normal, with symmetric enhancement. No hydronephrosis. Left-sided renal cysts. Ureters: Normal caliber. Bones: No acute abnormality. Multilevel degenerative changes of the visualized spine. Mild anterolisthesis of L3 on L4. IMPRESSION: 1. No evidence of acute pulmonary embolism or aortic dissection. 2. The main pulmonary artery is dilated which can be seen with pulmonary hypertension. 3. Patchy airspace opacity in the right middle lobe, nonspecific, possibly reflective of scarring, infectious or an inflammatory process although other etiologies not completely excluded. 4. Small left pleural effusion with associated atelectasis. 5. Chronic findings as described above. WSN: [id number] Ordering Physician: Demetra Cast Dictated By: Kaila Patel MD Dictated Date/Time: 04/19/23 11:23 a Reviewed By: Kaila Patel MD Signed By: Kaila Patel MD Signed Date/Time: 04/19/23 11:23 am Transcribed By: MART Transcribed Date/Time: 04/19/23 10:56 am * Exam Date Time Procedure Performing Provider Status 04/19/23 9:[address] Angio Chest Danita Ontiveros; Aut h (Verified) Notes: (CT Angio Chest) Reason For Exam: Aortic disease, nontraumatic;Other: RESULT: CT Angio Chest EXAMINATION: CT Angio Chest and Abdomen. INDICATION: Hx of Present Illness: chest pain and HR was 129 and so I called the ambulance; Reason:Other:; Aortic disease, nontraumatic; Clinical Question(s): Other:; Aortic Dissection; Order Comment: TECHNIQUE: Spiral CTA of the chest and Abdomen was performed after rapid IV contrast administrationwithout cardiac gating. Images are formatted in multiple planes using 2-D multiplanar and 3-D maximum intensity projection. 100 cc of Omnipaque 300 was administered intravenously. Weight-based protocol using automatic tube modulation was used to optimize exposure parameters. CTDIvol Body: 6.50 mGy, DLP Body: 347 mGy*cm. COMPARISONS: 04/13/2022. ANGIOGRAPHIC FINDINGS: No pulmonary embolism to the subsegmental level. The main pulmonary artery is dilated measuring up to 3.1 cm, which can be seen with pulmonary hypertension. No acute aortic abnormality seen on this study performed without cardiac gating. Abdominal aorta: No aortic aneurysm or dissection. Diffuse vascular calcification. Celiac axis: Patent. Superior mesenteric artery: Patent. Right renal artery: Patent. Mild atherosclerotic calcification at the origin. Left renal artery: Patent. Inferior mesenteric artery: Patent. Visualized iliac arteries: Patent. NON-ANGIOGRAPHIC FINDINGS: Armature Winder Repair View Findings, Lines and Tubes: None. Trachea and Airways: Patent without evidence of tracheal or endobronchial lesion. Lungs and Pleura: Patchy airspace opacity in the right middle lobe. Post partial left lower lobectomy. Small left pleural effusion with associated atelectasis. Mild right basilar atelectasis. No pneumothorax. Mediastinum and artemio: No mass or hematoma. No mediastinal or hilar lymphadenopathy. No esophageal abnormality. Heart: Heart is normal in size. No pericardial effusion. Chest Wall Soft Tissues: Normal. Diaphragm and upper abdomen: No significant abnormality. ABDOMEN: Liver: Normal. Biliary: Normal. No intra or extrahepatic biliary ductal dilation. The gallbladder is unremarkable. Spleen: Normal. Pancreas: Normal. Adrenals: Normal. Kidneys: Normal, with symmetric enhancement. No hydronephrosis. Left-sided renal cysts. Ureters: Normal caliber. Bones: No acute abnormality. Multilevel degenerative changes of the visualized spine. Mild anterolisthesis of L3 on L4. IMPRESSION: 1. No evidence of acute pulmonary embolism or aortic dissection. 2. The main pulmonary artery is dilated which can be seen with pulmonary hypertension. 3. Patchy airspace opacity in the right middle lobe, nonspecific, possibly reflective of scarring, infectious or an inflammatory process although other etiologies not completely excluded. 4. Small left pleural effusion with associated atelectasis. 5. Chronic findings as described above. WSN: [id number] Ordering Physician: Demetra Cast Dictated By: Kaila Patel MD Dictated Date/Time: 04/19/23 11:23 a Reviewed By: Kaila Patel MD Signed By: Kaila Patel MD Signed Date/Time: 04/19/23 11:23 am Transcribed By: MART Transcribed Date/Time: 04/19/23 10:56 am * Exam Date Time Procedure Performing Provider Status 04/19/23 6:30 AM Chest 2 Views Frontal and Lat Soren Sanchez (Verified) Notes: (Chest 2 Views Frontal and Lat) Reason For Exam: Chest Pain;Other: RESULT: Chest 2 Views Frontal and Lat Chest 2 Views Frontal and Lat HX OF PRESENT ILLNESS: chest pain and HR was 129 and so I called the ambulance COMPARISON: 11/16/2022 FINDINGS: LINES AND TUBES: None. LUNGS AND PLEURA: Unchanged volume loss in the left hemithorax with a small left pleural effusion or pleural thickening and left basilar atelectasis. The right lung and pleural space are clear. No pneumothorax. HEART, MEDIASTINUM AND ARTEMIO: Heart is normal in size. Unchanged leftward mediastinal shift. Mitraclip in place. BONES AND SOFT TISSUES: No acute abnormality. IMPRESSION: No evidence of acute abnormality. WSN: [id number] Ordering Physician: Sergio Lam Dictated By: Andre Neumann MD Dictated Date/Time: 04/19/23 6:54 am Reviewed By: Andre Neumann MD Signed By: Andre Neumann MD Signed Date/Time: 04/19/23 6:54 am Transcribed By: MART Transcribed Date/Time: 04/19/23 6:53 am Vital Signs Most recent to oldest [Reference Range]: 1 2 3 Height 160 cm (04/20/23 10:48 AM) 160 cm (04/20/23 8:48 AM) 160 cm (04/19/23 5:57 PM) Weight 56.5 kg (04/19/23 5:57 PM) 58.6 kg (04/19/23 1:18 PM) 58.6 kg (04/19/23 1:09 PM) Oxygen Saturation [94-100 %] 100 % (04/20/23 10:48 AM) 100 % (04/20/23 8:48 AM) 100 % (04/20/23 3:23 AM) Pulse Rate [55-90 bpm] 72 bpm (04/20/23 10:48 AM) 75 bpm (04/20/23 8:48 AM) 68 bpm (04/20/23 8:10 AM) Body Mass Index [18.5-24.99 kg/m2] 22.07 kg/m2 (04/19/23 5:57 PM) Blood Pressure [90-138/55-84 mm Hg] 119/54mm Hg (04/20/23 10:48 AM) 120/61mm Hg (04/20/23 8:48 AM) 109/61mm Hg (04/20/23 8:10 AM) Respiratory Rate [16-30 br/min] 17 br/min (04/20/23 10:48 AM) 20 br/min (04/20/23 8:48 AM) 20 br/min (04/20/23 8:24 AM) Temperature [96.8-100.4 DegF] 98.7 DegF (04/20/23 10:48 AM) 98.1 DegF (04/20/23 8:48 AM) 98.3 DegF (04/20/23 3:23 AM) Liters per Minute 2 L/min (04/20/23 8:48 AM) 2 L/min (04/20/23 3:23 AM) 2 L/min (04/19/23 11:00 PM) Mode of Delivery (Oxygen) Room air (04/20/23 10:48 AM) Nasal cannula (04/20/23 8:48 AM) Nasal cannula (04/20/23 3:23 AM) Blood pressure sites Arm, left (04/20/23 10:48 AM) Arm, left (04/20/23 8:48 AM) Arm, left (04/20/23 3:23 AM) Temperature Route Oral (04/20/23 10:48 AM) Oral (04/20/23 8:48 AM) Oral (04/20/23 3:23 AM) Dry Weight 56.5 kg (04/19/23 5:57 PM) 58.6 kg (04/19/23 1:18 PM) 58.6 kg (04/19/23 1:09 PM) Weight Obtained Via Standing scale (04/19/23 4:06 AM) Dry Weight Obtained Via Standing scale (04/19/23 4:06 AM) Social History Social History Type Response Smoking Status Never smoker; Tobacc o user in household: No entered on: 04/05/17 Sex Female Admission evaluation note * Jessica MATHIS, Supa M: MODIFY, MODIFY, MODIFY, MODIFY, MODIFY, MODIFY, MODIFY, MODIFY, MODIFY, MODIFY, MODIFY, PERFORM, MODIFY, MODIFY, MODIFY, MODIFY, MODIFY, MODIFY, MODIFY, MODIFY, MODIFY, MODIFY, MODIFY, MODIFY, MODIFY, MODIFY, MODIFY, MODIFY, MODIFY, MODIFY, MODIFY, MODIFY, MODIFY, MODIFY Event Display: Admission Note Authored Date: Patient: ??CINDA WATSON ? Age:??78 Years?Sex:??Female?:??1945?? Chief Complaint/Reason for Consultation Pt coming from home with c/o palpitations. Pt woke at 0200 with CP that lasted 20 minutes, called 911. Arrives pain free but feels like heart rate is fast. Pt has history of anxiety. Refused IV for EMS. History of Present Illness 78 y/o female with PMH of f mixed (symptomatic as well as degenerative) mitral regurgitation, dyspnea on exertion, mitral valve prolapse status post mitral clip repair few months ago, antiphospholipid syndrome, COPD/KANDY???on BiPAP nightly and home O2 inhalation as needed???2 L, pulmonary hypertension, antiphospholipid antibody syndrome with history of PE/DVT???on chronic warfarin???goal of INR 1.5-2 due to history of platelet dysfunction, stage IIIa lung cancer status post left lower lobe lobectomy and neoadjuvant chemoradiation, radiation pulmonary fibrosis??on chronic prednisone, nonobstruct esmer CAD status post NSTEMI, heart failure with preserved ejection fraction, hypothyroidism, hypogammaglobulinemia, optic neuritis, osteoporosis, seizures, and vertigo presents to the ED for chest pain/ palpitations. ?? Per ED: She felt short of breath during this time and had a pulse oximeter on and stated that her heart rate was 129. She states she had a similar episode about a week ago where she woke up in the middle of the night with tearing chest pain, she did not come to the hospital then. ??She also mentions that she has been feeling increasingly dizzy and feeling off balance, has not fallen. ??She deniesassociated syncopal events.? Upon initial evaluation in the ED pt was hemodynamically stable afebrile with temperature 98.5, heart rate of 85, blood pressure of 168/78, saturating well on room air at 100%, CBC is within normal limits, INR is 2, electrolytes are within normal limits, bicarb is 33, creatinine 0.8, High sensitivity troponin is 25-25-26. ??NT proBNP is 794, chest x-ray shows No evidence of acute abnormality, CT chest/ abdomen/ pelvis with IV contrast shows 1. ??No evidence of acute pulmonary embolism or aorticdissection. 2. ??The main pulmonary artery is dilated which can be seen with pulmonary hypertension. 3. ??Patchy airspace opacity in the right middle lobe, nonspecific, possibly reflective of scarring, infectious or an inflammatory process although other etiologies not completely excluded. 4. ??Small left pleural effusion with associated atelectasis. 5. ??Chronic findings as described above. EKG showed left anterior fascicular block with right bundle branch??block.?bedside ultrasound performed which showed a right sided pericardial effusion, no evidence of tamponade. Pt was given Benadryl 25 mg due to contrast dye allergy,??and 1 mg Ativan due to anxiety. ?? Upon my initial evaluation, pt was tearful at the beginning of the conversation. Her confusion subsided and she was Aox3. Pt reported chest pain occurring at 2AM lasting for 10 minutes radiating to the back that was pressure like. No N/V. No D/L associated with the chest pain. Pt called her gallery manager and suggested to go to the ED for concern of dissection. Pt also reports that she has been D/L lately and had a fall about 3 weeks ago down the stairs without headstrike. Pt did not LOC. Pt reports that she was assessed for back pain recently and was found to have a T6 fracture. Pt reports having had an Echo recently in December which showed an EF of 55-60%. Pt denies having chest pain while in the ED. Pt was reportedly confused after receiving Benadryl however she was AOx3 upon my assessment. Review of Systems Additional review of systems information:??All other systems reviewed and otherwise negative as mentioned above. Objective Measurements?? Weight: 58.6 kg (04/19/23) Dry Weight: 58.6 kg (04/19/23) ? Vital Signs?? Temperature: 98.4 DegF (04/19/23 06:07:00) Temperature Route: Oral (04/19/23 06:07:00) Pulse Rate: 73 bpm (04/19/23 13:09:00) Respiratory Rate: 18 br/min (04/19/23 13:09:00) Systolic Blood Pressure: 125 mm Hg (04/19/23 13:18:00) Diastolic Blood Pressure: 59 mm Hg (04/19/23 13:18:00) Blood pressure sites: Arm, left (04/19/23:18:00) Mean Arterial Pressure: 81 mm Hg (04/19/23 13:18:00) Pulse Pressure: 66 mm Hg (04/19/23 13:18:00) Oxygen Saturation: 100 % (04/19/23 13:09:00) Liters per Minute: 2 L/min (04/19/23 04:06:00) Mode of Delivery (Oxygen): Room air (04/19/23 13:09:00) Early Warning Score: 0 (04/19/23 13:18:33) ? Physical Exam Constitutional: Alert, in no distress. Mental Status: Oriented to person, place and time. Head: Normocephalic. Eyes: Pupils are equal, round and reactive to light. Extraocular muscles intact. Ear, Nose and Throat: Oropharynx clear, mucous membranes moist. Ears and nose without masses, lesions or deformities. Trachea midline. Neck: Supple, Full range of motion. Respiratory: Clear to auscultation. No wheezing, rales or rhonchi. Cardiovascular: S1 S2 normal regular rate and rhythm. No murmurs, rubs or gallops. No JVD. No peripheral edema. Gastrointestinal: Abdomen soft, non-tender, non-distended. Normal bowel sounds. No pulsatile mass. No hepatosplenomegaly. Neurologic: Cranial nerves II-XII grossly intact. No focal neurological deficits. Moves all extremities spontaneously. Sensation intact bilaterally. Skin: No rashes or lesions. No petechiae or purpura.?? Musculoskeletal: No cyanosis or clubbing. No gross deformities. Normal range of motion. Back non tender on exam. Psychiatric: Normal mood and affect Assessment/Plan 78 y/o female with PMH of f mixed (symptomatic as well as degenerative) mitral regurgitation, dyspnea on exertion, mitral valve prolapse status post mitral clip repair few months ago, COPD/KANDY???on BiPAP nightly and home O2 inhalation as needed???2 L, pulmonary hypertension, antiphospholipid antibody syndrome with history of PE/DVT???on chronic warfarin???goal of INR 1.5-2 due to history of platelet dysfunction, stage IIIa lung cancer status post left lower lobe lobectomy and neoadjuvant chemoradiation, radiation pulmonary fibrosis??on chronic prednisone, nonobstructive CAD status post NSTEMI, heart failure with preserved ejection fraction, hypothyroidism, hypogammaglobulinemia, optic neurit is, osteoporosis, seizures, and vertigo presents to the ED for chest pain/ palpitations. ?? Chest Pain/ Palpitations Mitral valve prolapse status post mitral clip repair?? HFpEF last EF 55-60% in December 2022 non obstructive CAD Pt presented??10 minute episode of chest pain that radiates to the back that she described was pressure like however has not occurred here in the hospital. Pt's HR during this episode was reportedly 129. Pt has no diagnosed history of Afib. We suspect that the patient likely had an underlying arrhythmia during that episode either Afib with RVR or A flutter. Pt underwent workup for aortic dissection which was negative. HST is 25-25-26 along with EKG negative for signs acute ischemia ?? Plan - cardiac technologist - I/Os - No need for ECHO at this time - consider Cardiology consult in AM??depending on tele review - Cardiology follow up outpatient - Consider Loop recorder in the outpatient if arrhythmia non revealing on tele - Continue home Metoprolol 50mg XL BID - continue home Lasix 40mg BID ?? Antiphospholipid syndrome with history of PE/DVT???on chronic warfarin???goal of INR 1.5-2 due to history of platelet dysfunction PE ruled out on most recent CT chest with IV contrast INR is 2 goal INR is 1.5 to 2 due to platelet dysfunction ?? Plan - continue Warfarin 2mg to 3mg daily depending on INR - Daily INR ?? COPD/KANDY???on BiPAP nightly and home O2 inhalation as needed???2 L Chronic Hypoxic Respiratory on 2L Pulmonary hypertension Stage IIIa lung cancer status post left lower lobe lobectomy and neoadjuvant chemoradiation Radiation pulmonary fibrosis??on chronic prednisone Pt reports she had finished a 5 day course of prednisone 40mg which she completed yesterday Pt reports she is on Prednisone 2.5 mg every other day ?? Plan - continue Prednisone 2.5mg every other day starting tomorrow - CPAP at night - will use Breo Ellipta while inpatient - as needed Duonebs - continue Albuterol inhaler as needed ?? Chronic Medical Conditions Hypothyroidism- continue Levothyroxine 25mcg M- and 50 mcg over the weekend Anxiety- continue home Diazepam and trazodone Constipation - bowel regimen scheduled ? Quality Measures Diet: Cardiac DVT prophylaxis: Warfarin with goal INR of 1.5-2 Code Status: Full Code ? Pt seen and discussed with Attending Dr. Moreira ?? Supa Lopez,??DO PGY-2 Internal Medicine Pager [phone]/ cortext?? Histories Allergies Allergies ?(Active and Proposed Allergies [...] Unknown) ? Past Medical History/Problem List Active Problems??(26) Antiphospholipid syndrome Anxiety CHF - Congestive heart failure Constipation 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 Coronary artery disease MIS (generalized anxiety disorder) Gastroesophageal reflux disease Hematochezia Heterozygous Factor V Leiden mutation HTN (hypertension) Hyperlipidemia Hypothyroidism Insomnia Mitral regurgitation Mitral valve prolapse Obstructive sleep apnea treated with BiPAP Occipital headache Optic neuritis Osteoporosis Platelet dysfunction Platelet function defect Radiation pneumonitis SVT (supraventricular tachycardia) Thoracic compression fracture Vertigo ? Past Surgical History Bronchoscopy, rigid or [...] History Alcohol Details:??Use: Never. 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 Exercise Details:??Regular exercise: No. Home/Environment Details:??Living situation: Home/Independent. ??Lives with: Alone. ??Other: Is , has adult son and daughter.. Nutrition/Health Details:??Diet: Regular. Sexual Details:??Sexually involved in last 6 months: No. ??Sexual orientation: Heterosexual. ??Gender identity: Female. ??Preferred pronoun: She/her. Substance Abuse Details:??Use: Never. Tobacco Details:??Never smoker, Tobacco user in household: No. ? Family History Mother (): AAA - [...] 0.083% inhalation solution)?3?Milliliter?2.5?Milligram?Inhalation?Every 6 hours?as needed?for wheezing Baclofen (baclofen 10 mg oral tablet)?See Instructions?as needed?1/2 to 1 tablet twice daily for pain as needed?Pain , Moderate Diazepam (diazepam 5 mg oral tablet)?See Instructions?as needed?1/2 tab 4 times per day?anxiety & sleep Docusate (docusate sodium 100 mg oral capsule)?100?Milligram?1?capsule?By Mouth?2times a day Durable Medical Equipment (Orthotics)?See Instructions?Molded orthotics for bilateral feet.Diagnosis: Arthritis of feet with pain elderberry (elderberry oral liquid)?15?Milliliter?By Mouth?Daily elderberry?350?Milligram?By Mouth?Daily EPINEPHrine (EPINEPHrine 0.3 mg injectable solution)?0.3?Milligram?Intramuscular?Once?as needed?Anaphylactic Reaction Ferrous Gluconate (ferrous gluconate 324 mg oral tablet)?1?tab(s)?324?Milligram?By Mouth?Daily?WITH BREAKFAST Fluticasone-Salmeterol (Advair HFA 230 mcg / 21 mcg)?2?puff(s)?Inhalation?2 times a day Furosemide?40?Milligram?2 times a day Levothyroxine (levothyroxine 25 mcg (0.025 mg) oral capsule)?1?capsule?25?Microgram?By Mouth?Daily?Monday through Monday Levothyroxine (levothyroxine 50 mcg (0.05 mg) oral capsule)?1?capsule?50?Microgram?By Mouth?Daily?Monday & s Metoprolol (Metoprolol Succinate ER 25 mg oral tablet, extended release)?3 tablets?By Mouth?2 times a day?for 30?Days?TAKE ONE TABLET BY MOUTH TWICE A DAY WITH BREAKFAST AND DINNER Montelukast (Singulair 10 mg oral tablet)?10?Milligram?1?tablet?By Mouth?Daily inPM?Dr. Kelly Multivitamin (B-Complex SR)?1?tab(s)?By Mouth?Daily Omeprazole (omeprazole 40 mg oral enteric coated capsule)?1?capsule?40?Milligram?By Mouth?Daily?as needed?as needed PredniSONE?5?Milligram?By Mouth?Daily Ramelteon (ramelteon 8 mg oral tablet)?1?tab(s)?8?Milligram?By Mouth?Daily at bedtime Rosuvastatin (rosuvastatin 10 mg oral tablet)?1?tab(s)?10?Milligram?By Mouth?Every Monday, Monday and Monday Trazodone (traZODone 50 mg oral tablet)?100?Milligram?2?tablet?By Mouth?Daily at bedtime?Dr. Kelly Warfarin (warfarin 1 mg oral tablet)?See Instructions?take 2-3 ??tablets By Mouth Daily as directed by the anticoagulation clinic ? Inpatient Medications Medications (6) Active SCHEDULED: (1) NaCl 0.9% Flush 3ml (NaCL 0.9% Flush) ??3 mL, IV Push, Every 8 hours CONTINUOUS: (0) PRN: (5) Acetaminophen 325 mg Tablet (Acetaminophen Tablet) ??650 mg, By Mouth, Every 4 hours Docusate Sodium 100 mg Capsule (Docusate Sodium Capsule) ??100 mg 1 capsule, By Mouth, 2 times a day Melatonin 3 mg Tablet (Melatonin Tablet) ??3 mg, By Mouth, Daily at bedtime NaCl 0.9% Flush 3ml (NaCL 0.9% Flush) ??3 mL, IV Push, Every 8 hours Senna Tablet ??8.6 mg 1 tablet, By Mouth, 2 times a day ? Results Recent Labs BLOOD COUNT & DIFF WBC 10.3 k/mm3 ()?? 04/19/2023 04:21 RBC 4.05 m/mm3 (Low)?? 04/19/2023 04:21 Hgb 13.2 Gm/dL ()?? 04/19/2023 04:21 Hct 40.1 % ()?? 04/19/2023 04:21 MCV 99.0 femtoliters ()?? 04/19/2023 04:21 MCH 32.6 pg ()?? 04/19/2023 04:21 MCHC 32.9 g/dL (Low)?? 04/19/2023 04:21 Platelet Count 238 k/mm3 ()?? 04/19/2023 04:21 RDW-SD 49.8 femtoliters (High)?? 04/19/2023 04:21 MPV 10.8 femtoliters ()?? 04/19/2023 04:21 Nucleated RBC (Automated) 0.0 #/100 WBC'S ()?? 04/19/2023 04:21 Abs. NRBC 0.0 k/mm3 ()?? 04/19/2023 04:21 Abs. Neut 7.6 k/mm3 (High)?? 04/19/2023 04:21 Abs. Lymph 1.2 k/mm3 ()?? 04/19/2023 04:21 Abs. [place] 1.1 k/mm3 (High)?? 04/19/2023 04:21 Abs. Eo 0.1 k/mm3 ()?? 04/19/2023 04:21 Abs. Baso 0.1 k/mm3 ()?? 04/19/2023 04:21 Neut % 73.3 % ()?? 04/19/2023 04:21 Lymph % 11.7 % (Low)?? 04/19/2023 04:21 [place] % 10.3 % ()?? 04/19/2023 04:21 Eos % 1.1 % ()?? 04/19/2023 04:21 Baso % 1.0 % ()?? 04/19/2023 04:21 Imm Gran 2.6 % ()?? 04/19/2023 04:21 Abs. Imm Gran 0.3 k/mm3 ()?? 04/19/2023 04:21 ?? CARDIAC Nt-Probnp 794 pg/mL (High)?? 04/19/2023 08:07 High Sensitivity Troponin (HSTnT) 26 ng/L (High)?? 04/19/2023 08:41 ?? CHEM GENERAL Sodium 139 mmol/L ()?? 04/19/2023 04:21 Potassium 3.6 mmol/L ()?? 04/19/2023 04:21 Chloride 97 mmol/L (Low)?? 04/19/2023 04:21 Bicarbonate Level 33 mmol/L (High)?? 04/19/2023 04:21 Anion Gap 9 ()?? 04/19/2023 04:21 Glucose Level 104 mg/dL (High)?? 04/19/2023 04:21 BUN 19 mg/dL ()?? 04/19/2023 04:21 Creatinine-Blood 0.8 mg/dL ()?? 04/19/2023 04:21 Estimated GFR Creatinine 73 ML/MIN/1.73 M2 ()?? 04/19/2023 04:21 Calcium 9.7 mg/dL ()?? 04/19/2023 04:21 ?? COAG INR 2.0 (High)?? 04/19/2023 10:10 Protime (PT) 20.1 seconds (High)?? 04/19/2023 10:10 ?? COUMADIN CLINIC RESULTS INR ([facility]) 2.6 (High)?? 04/18/2023 00:00 ?? HEME OTHER Hold Lavender Top SPECIMEN DISCARDED AFTER 24 HOURS. ()?? 04/19/2023 08:41 Hold Blue Top SPECIMEN DISCARDED AFTER 4 HOURS. ()?? 04/19/2023 04:21 ? * Lillie STARK, Kulwant Howard: PERFORM Event Display: Admission Note Authored Date: Attending Attestation: I have??seen and evaluated??CINDA MOREINO, on 04/19/23. ??I have??reviewed the patient???s medical history, findings on examination, diagnosis, and treatment. I have discussed the case and its management with the resident and agree with the findings and plan as documented in the resident???s note.? Additional Clarifying information:?? Acute onset chest pain, non-exertional but did awake her from sleep.?? Could be anxiety related given her complexity of cardiac disease, also concerned for arrhythmia such as atrial fibrillation or atrial flutter.?? Discussed with patient at least monitoring mavis telemetry overnight, should follow up with cardiology outpatient if nothing is found on telemetry.?? She also mentioned she had a fall down stairs a little over a month ago, so could be having pain residual from that given description of pain location.?? CTA obtained that ruled out dissection, no evidence of bone fractures, and no other acute findings to better explain her symptoms. ?? Please use the following diagnoses: ?? Diagnoses 1. ??Chest pain ??(R07.9) 2. ??Chronic heart failure with preserved ejection fraction (HFpEF) ??(I50.32) 3. ??Chronic respiratory failure with hypoxia and hypercapnia ??(J96.11) 4. ??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 ??(J44.9) 5. ??Coronary artery disease ??(I25.10) 6. ??Atrial septal defect ??(Q21.10) 7. ??Obstructive sleep apnea treated with BiPAP ??(G47.33) 8. ??S/P mitral valve clip implantation ??(Z98.890) 9. ??Antiphospholipid syndrome ??(D68.61) 10. ??Heterozygous Factor V Leiden mutation ??(D68.51) 11. ??NSCLC - Non-small cell lung cancer - Stage IIIA T2N2 adenocarcinoma, LLL resection, chemo, XRT ??(C34.90) 12. ??Radiation pneumonitis ??(J70.0) 13. ??Mitral regurgitation ??(I34.0) 14. ??MIS (generalized anxiety disorder) ??(F41.1) 15. ??HTN (hypertension) ??(I10) ? EKG study * Event Display: ECG 12-Lead Authored Date: Please click on pdf link to open report * Event Display: ECG 12-Lead Authored Date: Ventricular Rate: 82 BPM Atrial Rate: 82 BPM P-R Interval: 152 ms QRS Duration: 126 ms Q-T Interval: 418 ms QTC Calculation(Bazett): 488 ms P [place]: 55 degrees R [place]: -57 degrees T [place]: 53 degrees Normal sinus rhythm Right bundle branch block Left anterior fascicular block Bifascicular block Minimal voltage criteria for LVH, may be normal variant ( R in aVL ) Abnormal ECG When compared with ECG of 19-DEC-2022 22:16, No significant change was found Confirmed by KENYA SHARMA MD ([id number]) on 04/19/2023 9:38:49 AM Bloomer: KENYA SHARMA MD Cardiology * Event Display: Cardiac Rhythm Strips Authored Date: Hospital Progress note * Pallavi Wylie LPN: PERFORM, SIGN, VERIFY Event Display: Progress Note Hospital Authored Date: Patient: CINDA WATSON Age: 78 years Sex: Female : 1945 Associated Diagnoses: None Author: Pallavi Wylie LPN Findings Nursing Data Narrative/Incidental Patient is A/O x 4, positive BS x 4, LCTA, on 2 liters and ambulates with a cane at times.She states that sometimes she gets dizzy. Patient stated she slipped and fell down the stairs about a month ago. Safety measures addressed and call ma within reach.. Note * Pallavi Wylie LPN: PERFORM Event Display: Discharge/Transfer Note Hospital Authored Date: [id number] Nursing Discharge Note Entered On: 04/20/2023 15:55 EDT Performed On: 04/20/2023 13:13 EDT by Pallavi Wylie LPN Nursing Discharge Note 2 Discharge Time : 04/20/2023 13:13 EDT Discharge Level of Care at Discharge : Home/Care Home/Foster Care Patient Left Unit Via : Wheelchair Patient Accompanied Off Unit with : Responsible adult DC Instructions Provided & Signed by Pt : Yes Patient Understands D/C Instructions : Yes Patient Instructions Discharge Signed : Yes Did Pt have Specialty Bed or Wound Vac : No Pallavi Wylie LPN - 04/20/2023 15:54 EDT * Russell STARK, Ketan: PERFORM Event Display: Discharge/Transfer Note Hospital Authored Date: Patient: ??CINDA WATSON ? Age:??78 Years?Sex:??Female?:??1945?? Patient Information Discharge Location: [facility] Primary Care Physician: Caitlyn Bowie MD Admit Date/Time: 04/19/23 11:42 Discharge Disposition Discharge Disposition: ?? Discharge Diagnosis Chest pain (R07.9) Antiphospholipid syndrome 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 Coronary artery disease Hypothyroidism ?? _ Discharge Medications Albuterol (Ventolin HFA 108 mcg/inh inhalation aerosol with adapter)?2?puff(s)?Inhalation?Every 6 hours?as needed?Wheezing/Shortness of Breath Albuterol (albuterol 0.083% inhalation solution)?3?Milliliter?2.5?Milligram?Inhalation?Every 6 hours?as needed?for wheezing Amoxicillin-Clavulanate (Augmentin 875 mg-125 mg oral tablet)?1?tab(s)?By Mouth?Every 12 hours?for 7?Days Baclofen (baclofen 10 mg oral tablet)?See Instructions?as needed?1/2 to 1 tablet twice daily for pain as needed?Pain , Moderate Diazepam (diazepam 5 mg oral tablet)?See Instructions?as needed?1/2 tab 4 times per day?anxiety & sleep Docusate (docusate sodium 100 mg oral capsule)?100?Milligram?1?capsule?By Mouth?2times a day Durable Medical Equipment (Orthotics)?See Instructions?Molded orthotics for bilateral feet.Diagnosis: Arthritis of feet with pain elderberry (elderberry oral liquid)?15?Milliliter?By Mouth?Daily EPINEPHrine (EPINEPHrine 0.3 mg injectable solution)?0.3?Milligram?Intramuscular?Once?as needed?Anaphylactic Reaction Ferrous Gluconate (ferrous gluconate 324 mg oral tablet)?1?tab(s)?324?Milligram?By Mouth?Daily?WITH BREAKFAST Fluticasone-Salmeterol (Advair HFA 230 mcg / 21 mcg)?2?puff(s)?Inhalation?2 times a day Furosemide?40?Milligram?2 times a day Levothyroxine (levothyroxine 25 mcg (0.025 mg) oral capsule)?1?capsule?25?Microgram?By Mouth?Daily?Monday through Monday Levothyroxine (levothyroxine 50 mcg (0.05 mg) oral capsule)?1?capsule?50?Microgram?By Mouth?Daily?Monday & Monday's Metoprolol (Metoprolol Succinate ER 25 mg oral tablet, extended release)?3 tablets?By Mouth?2 times a day?for 30?Days?TAKE ONE TABLET BY MOUTH TWICE A DAY WITH BREAKFAST AND DINNER Montelukast (Singulair 10 mg oral tablet)?10?Milligram?1?tablet?By Mouth?Daily inPM?Dr. Kelly Multivitamin (B-Complex SR)?1?tab(s)?By Mouth?Daily Omeprazole (omeprazole 40 mg oral enteric coated capsule)?1?capsule?40?Milligram?By Mouth?Daily?as needed?as needed PredniSONE (predniSONE 5 mg oral tablet)?2.5?Milligram?By Mouth?Every other day Rosuvastatin (rosuvastatin 10 mg oral tablet)?1?tab(s)?10?Milligram?By Mouth?Every Monday, Monday and Monday Trazodone (traZODone 50 mg oral tablet)?100?Milligram?2?tablet?By Mouth?Daily at bedtime?Dr. Kelly Warfarin (warfarin 1 mg oral tablet)?See Instructions?take 2-3 ??tablets By Mouth Daily as directed by the anticoagulation clinic ? Future Appointments 2022 11:00 AM EST ?? With: Azeb SATRK, Caitlyn Thompson Where: [facility] [address] [id number]- Status: Pending Objective Assessment and Plan Chest pain (R07.9):??78 y/o female with PMH of f mixed (symptomatic as well as degenerative) mitralregurgitation, dyspnea on exertion, mitral valve prolapse status post mitral clip repair few monthsago, COPD/KANDY???on BiPAP nightly and home O2 inhalation as needed???2 L, pulmonary hypertension, antiphospholipid antibody syndrome with history of PE/DVT???on chronic warfarin???goal of INR 1.5-2 due to history of platelet dysfunction, stage IIIa lung cancer status post left lower lobe lobectomy and neoadjuvant chemoradiation, radiation pulmonary fibrosis on chronic prednisone, nonobstructive CAD status post NSTEMI, heart failure with preserved ejection fraction, hypothyroidism, hypogammaglobulinemia, optic neuritis, osteoporosis, seizures, and vertigo presents to the ED for chest pain/ palpitations. Please note patient is also very anxious??and has?underlying anxiety disorder ?? Chest Pain/ Palpitations Mitral valve prolapse status post mitral clip repair HFpEF last EF 55-60% in December 2022 ??non obstructive CAD Patient??does not report any chest pain her main complaint is right submandibular??enlarged gland and right molar??tooth pain??she was supposed to go to a dentist??but she missed her appointment. ??-??Troponins??are??in the low range unremarkable patient is chest pain-free ??- Continue home Metoprolol 50mg XL BID ??- continue home Lasix 40mg BID Patient will not need any inpatient cardiac work-up can be discharged home We will give a 7 days??course of Augmentin??875 mg twice daily for the right tooth??infection??follow-up with dental surgery outpatient ?? Antiphospholipid syndrome with history of PE/DVT???on chronic warfarin???goal of INR 1.5-2 due to history of platelet dysfunction PE ruled out on most recent CT chest with IV contrast ??INR is 2 goal INR is 1.5 to 2 due to platelet dysfunction ??- continue Warfarin 2mg to 3mg daily depending on INR ? COPD/KANDY???on BiPAP nightly and home O2 inhalation as needed???2 L ??Chronic Hypoxic Respiratory on 2L ??Pulmonary hypertension Stage IIIa lung cancer status post left lower lobe lobectomy and neoadjuvant chemoradiation ??Radiation pulmonary fibrosis on chronic prednisone ??Pt reports she had finished a 5 day course of prednisone 40mg which she completed yesterday ??Pt reports she is on Prednisone 2.5 mg every other day ?? Chronic Medical Conditions ??Hypothyroidism- continue Levothyroxine 25mcg M- and 50 mcg over the weekend Anxiety- continue home Diazepam and trazodone ?? Disposition, home ?? Discharge Planning:? Vital Signs?? Temperature: 98.1 DegF (04/20/23 08:48:00) Temperature Route: Oral (04/20/23 08:48:00) Pulse Rate: 75 bpm (04/20/23 08:48:00) Respiratory Rate: 20 br/min (04/20/23 08:48:00) Systolic Blood Pressure: 120 mm Hg (04/20/23 08:48:00) Diastolic Blood Pressure: 61 mm Hg (04/20/23 08:48:00) Blood pressure sites: Arm, left (04/20/23 08:48:00) Mean Arterial Pressure: 81 mm Hg (04/20/23 08:48:00) Pulse Pressure: 59 mm Hg (04/20/23 08:48:00) Oxygen Saturation: 100 % (04/20/23 08:48:00) Liters per Minute: 2 L/min (04/20/23 08:48:00) Mode of Delivery (Oxygen): Nasal cannula (04/20/23 08:48:00) Early Warning Score: 0 (04/20/23 08:49:32) ? . Physical Exam General: [Alert, in no acute cardiopulmonary distress.] Mental Status: [Oriented to person, place and time. Normal affect.] Head: [Normocephalic.] Right submandibular lymph node is palpable, right lower tooth/caries Eyes: [Pupils are equal, round and reactive to light. Extraocular muscles intact.] Ear, Nose and Throat: [Oropharynx clear, mucous membranes moist. Respiratory: [Clear to auscultation and percussion. No wheezing, rales or rhonchi.] Cardiovascular: [Heart sounds normal. No thrills. Regular rate and rhythm, no murmurs, rubs or gallops.] Gastrointestinal: [Abdomen soft, non-tender, non-distended. Normal bowel sounds. No pulsatile mass.No hepatosplenomegaly.] Genitourinary: [No costovertebral angle tenderness.] Neurologic: [Cranial nerves II-XII grossly intact. No focal neurological deficits. Deep tendon reflexes +2 bilaterally. Flexor plantar response. Moves all extremities spontaneously. Sensation intact bilaterally.] Skin: [No rashes or lesions. No petechiae or purpura. No edema.] Musculoskeletal: [No cyanosis or clubbing. No gross deformities. Normal range of motion.] Pending Results INR ordered on 04/19/2023 Follow-Up Appointments Added Follow Up ?Time Frame ?Comments Caitlyn Smith MD?1 to 2 weeks Home Health Face to Face ^[facility] Results Discharge Labs BLOOD COUNT & DIFF WBC 9.3 k/mm3 ()?? 04/20/2023 01:25 RBC 3.66 m/mm3 (Low)?? 04/20/2023 01:25 Hgb 11.7 Gm/dL ()?? 04/20/2023 01:25 Hct 36.0 % ()?? 04/20/2023 01:25 MCV 98.4 femtoliters ()?? 04/20/2023 01:25 MCH 32.0 pg ()?? 04/20/2023 01:25 MCHC 32.5 g/dL (Low)?? 04/20/2023 01:25 Platelet Count 227 k/mm3 ()?? 04/20/2023 01:25 RDW-SD 49.5 femtoliters (High)?? 04/20/2023 01:25 MPV 10.8 femtoliters ()?? 04/20/2023 01:25 Nucleated RBC (Automated) 0.0 #/100 WBC'S ()?? 04/20/2023 01:25 Abs. NRBC 0.0 k/mm3 ()?? 04/20/2023 01:25 Abs. Neut 7.6 k/mm3 (High)?? 04/19/2023 04:21 Abs. Lymph 1.2 k/mm3 ()?? 04/19/2023 04:21 Abs. [place] 1.1 k/mm3 (High)?? 04/19/2023 04:21 Abs. Eo 0.1 k/mm3 ()?? 04/19/2023 04:21 Abs. Baso 0.1 k/mm3 ()?? 04/19/2023 04:21 Neut % 73.3 % ()?? 04/19/2023 04:21 Lymph % 11.7 % (Low)?? 04/19/2023 04:21 [place] % 10.3 % ()?? 04/19/2023 04:21 Eos % 1.1 % ()?? 04/19/2023 04:21 Baso % 1.0 % ()?? 04/19/2023 04:21 Imm Gran 2.6 % ()?? 04/19/2023 04:21 Abs. Imm Gran 0.3 k/mm3 ()?? 04/19/2023 04:21 ?? CARDIAC Nt-Probnp 794 pg/mL (High)?? 04/19/2023 08:07 High Sensitivity Troponin (HSTnT) 26 ng/L (High)?? 04/19/2023 08:41 ?? CHEM GENERAL Sodium 139 mmol/L ()?? 04/20/2023 01:28 Potassium 3.7 mmol/L ()?? 04/20/2023 01:28 Chloride 98 mmol/L ()?? 04/20/2023 01:28 Bicarbonate Level 31 mmol/L (High)?? 04/20/2023 01:28 Anion Gap 10 ()?? 04/20/2023 01:28 Glucose Level 103 mg/dL (High)?? 04/20/2023 01:28 BUN 19 mg/dL ()?? 04/20/2023 01:28 Creatinine-Blood 0.8 mg/dL ()?? 04/20/2023 01:28 Estimated GFR Creatinine 73 ML/MIN/1.73 M2 ()?? 04/20/2023 01:28 Calcium 9.8 mg/dL ()?? 04/20/2023 01:28 Phosphorus 3.3 mg/dL ()?? 04/20/2023 01:28 Magnesium 2.5 mg/dL (High)?? 04/20/2023 01:28 ?? COAG INR 1.6 (High)?? 04/20/2023 01:25 Protime (PT) 16.0 seconds (High)?? 04/20/2023 01:25 ?? HEME OTHER Hold Lavender Top SPECIMEN DISCARDED AFTER 24 HOURS. ()?? 04/19/2023 08:41 Hold Blue Top SPECIMEN DISCARDED AFTER 4 HOURS. ()?? 04/19/2023 04:21 ?? URINE OTHER Est Creatinine Clearance 46.38 mL/min ()?? 04/19/2023 18:03 ? 25minutes spent on discharge * Russell STARK, Ketan: PERFORM Event Display: Discharge/Transfer Note Hospital Authored Date: Antibiotics were switched to cefpodoxime in??200 mg every 12 as patient is allergic to Augmentin * Sheila Garcia RN: PERFORM Event Display: Patient Education/Instruction Authored Date: Inpatient Adult Discharge Instructions [address] [address] Name: CINDA WATSON : 1945 Visit: 04/19/2023 11:42:00 Current Date: 04/20/2023 11:46 Account: [id number] Inpatient Adult Discharge Instructions We would like to thank you for allowing us to assist you with your healthcare needs. The following includes patient education materials and information regarding your injury/illness. Our entire staffstrives to provide an excellent experience for our patients and their families. PLEASE ENSURE YOU FOLLOW-UP PER THE INSTRUCTIONS BELOW! ?? YOUR OPINION IS IMPORTANT TO US! Please complete the survey you may receive by mail or email. Your feedback will be used to make improvements to the healthcare experiences of our patients and their families. Surveys are administered by [employer]. ?? If further treatment with your primary care physician or another doctor is recommended, it is important for you to keep the appointment. Call your primary care physician or return to the Emergency Department immediately if your condition worsens, fails to improve, or new symptoms develop. If you need to find a doctor, you can call [facility] [email or web address] for a referral at [phone] or toll free at [phone]) or log in to [email or web address] ?? [facility], in keeping with [facility] guidance, no longer requires face masks for staff, patientsor visitors in most situations. Similiar to time spent indoors at other locations, there is the chance that you were exposed to repiratory viruses during your time with us (such as flu or COVID-19). If you develop symptoms concerning for a viral respiratory infection, please seek testing (and treatment if indicated) from your medical provider or home test kit. ?? You can view and manage your care through the patient portal or by using a health care alonso of your choosing. [employer] is a website that allows you to securely view your medical information including your hospital discharge summary, office visit summaries, medications and follow-up visits. You can also request appointments, renew medications, and request access to your medical information using a health care alonso of your choosing, or just ask a question. You can enroll at [email or web address] or register during your next office visit. You have been discharged from [facility], Patient Care Unit: D3B. If you have any questions regarding these instructions after you leave, please call us and we will be happy to assist you. [facility] Your Care Team Attending Physician Ketan Wells MD Discharging Providers Ketan Wells MD Reason for Admission Pt coming from home with c/o palpitations. Pt woke at 0200 with CP that lasted 20 minutes, called 911. Arrives pain free but feels like heart rate is fast. Pt has history of anxiety. Refused IV for EMS. Your Diagnosis Chest pain Tests Performed Below is a partial list of the tests performed during your hospitalization. You may have had other tests and procedures not included in this list. Please discuss all test results with your provider. Basic Metabolic Panel BNP CBC CBC w/ Differential High??Sensitivity??Troponin T Hold Blue Top Tube HOLD LAVENDER TUBE INR Magnesium Level Phosphorus Level Troponin T, High Sensitivity CT Angio Abdomen CT Angio Chest XR Chest 2 Views Frontal and Lat Primary Care Provider Caitlyn Bowie MD Advance Directive Health Care Proxy on File Yes - Health Care Proxy Yes - MOLST Discharge Vitals Temperature: 98.7 DegF Height: 160 cm Pulse Rate: 72 bpm Weight: 56.5 kg Respiratory Rate: 17 br/min Body Mass Index: 22.07 kg/m2 Systolic Blood Pressure: 119 mm Hg Body surface area: 1.58 Diastolic Blood Pressure:??54 mm Hg??Low ?? Oxygen Saturation: 100 % ?? Studies Pending All tests and labs ordered during this hospital stay have been completed unless listed below. Please discuss all pending results with your provider listed above in these instructions. ?? INR What to do next Instructions From Your Doctor Discharge Orders Scheduled Follow-Up Appointments 2022 11:00 AM EST ?? With: Caitlyn Bowie MD Where: [facility] [address] [place] [address]- Status: Pending You Need to Schedule the Following Appointments Follow Up with??Caitlyn Smith MD When:??Within 1 to 2 weeks Discharge Medications CINDA WATSON :1945 Visit Date:04/19/2023 Medications: Please continue your medications until treatment is completed or stopped by your provider. Medications not listed below should be discontinued. Discuss any questions related to medications with your provider. What How Much When Why Instructions Next Dose New Amoxicillin-Clavulanate (Augmentin 875 mg-125 mg oral tablet) 1 tab(s) Oral Every 12 hours Duration: 7 Days Pickup at [facility] 04/20 8pm Changed PredniSONE (predniSONE 5 mg oral tablet) 2.5 Milligram Oral Every other day 04/22 am Changed elderberry (elderberry oral liquid) 15 Milliliter Oral Daily 04/21 am Unchanged Albuterol (albuterol 0.083% inhalation solution) 3 Milliliter Inhalation Every 6 hours as needed for for wheezing as needed Unchanged Albuterol (Ventolin HFA 108 mcg/ inh inhalation aerosol with adapter) 2 puff(s) Inhalation Every 6 hours as needed for Wheezing/Shortness of Breath as needed Unchanged Baclofen (baclofen 10 mg oral tablet) See instructions 1/ 2 to 1 tablet twice daily for pain as needed, As needed for Pain , Moderate ?? resume home schedule Unchanged Diazepam (diazepam 5 mg oral tablet) See instructions 1/ 2 tab 4 times per day, As needed for anxiety & sleep ?? resume home schedule Unchanged Docusate (docusate sodium 100 mg oral capsule) 1 capsule Oral Twice a day 04/20 pm Unchanged Durable Medical Equipment (Orthotics) See instructions Molded orthotics for bilateral feet. ?? Diagnosis: Arthritis of feet with pain ?? Unchanged EPINEPHrine (EPINEPHrine 0.3 mg injectable solution) 0.3 Milligram Intramuscular Once as needed for Anaphylactic Reaction as directed Unchanged Ferrous Gluconate (ferrous gluconate 324 mg oral tablet) 1 tab(s) Oral Daily WITH BREAKFAST ?? 04/21 with breakfast Unchanged Fluticasone-Salmeterol (Advair HFA 230 mcg / 21 mcg) 2 puff(s) Inhalation Twice a day 04/20 pm Unchanged Furosemide 40 Milligram Twice a day 04/20 pm Unchanged Levothyroxine (levothyroxine 25 mcg (0.025 mg) oral capsule) 1 capsule Oral Daily Monday through Monday ?? 04/21 am Unchanged Levothyroxine (levothyroxine 50 mcg (0.05 mg) oral capsule) 1 capsule Oral Daily Monday & s ?? 04/22 am Unchanged Metoprolol (Metoprolol Succinate ER 25 mg oral tablet, extended release) 3 tablets Oral Twice a day Duration: 30 Days TAKE ONE TABLET BY MOUTH TWICE A DAY WITH BREAKFAST AND DINNER ?? 04/20 with dinner Unchanged Montelukast (Singulair 10 mg oral tablet) 1 tab(s) Oral Daily in PM Dr. Kelly ?? 04/20 pm Unchanged Multivitamin (B-Complex SR) 1 tab(s) Oral Daily 04/21 am Unchanged Omeprazole (omeprazole 40 mg oral enteric coated capsule) 1 capsule Oral Daily as needed for as needed as directed Unchanged Rosuvastatin (rosuvastatin 10 mg oral tablet) 1 tab(s) Oral Monday, Monday and Saturday 04/21 Unchanged Trazodone (traZODone 50 mg oral tablet) 2 tab(s) Oral Daily at Bedtime Dr. Kelly ?? 04/20 pm Unchanged Warfarin (warfarin 1 mg oral tablet) See instructions Embolism take 2-3 ??tablets By Mouth Daily as directed by the anticoagulation clinic ?? as directed Pharmacy Information [facility]: [address] [place], [place] [id number] [phone] ?? What How Much When Comments Stop Taking Ramelteon (ramelteon 8 mg oral tablet) 1 tab(s) Oral Daily at Bedtime Test Results Below is a partial list of the most recent Laboratory test results done prior to this discharge. You may have had other tests and procedures not included in this list. Please discuss all test resultswith your provider. Est Creatinine Clearance - 46.38 mL/min (04/19/2023) Basic Metabolic Panel (04/20/2023) ???Sodium - 139 mmol/L???Potassium - 3.7 mmol/L???Chloride - 98 mmol/L???Bicarbonate Level - 31 mmol/L???Anion Gap - 10???Glucose Level - 103 mg/dL???BUN - 19 mg/dL???Creatinine-Blood - 0.8 mg/dL???Estimated GFR Creatinine - 73 ML/MIN/1.73 M2???Calcium - 9.8 mg/dL BNP (04/19/2023) ???Nt-Probnp - 794 pg/mL CBC (04/20/2023) ???WBC - 9.3 k/mm3???RBC - 3.66 m/mm3???Hgb - 11.7 Gm/dL???Hct - 36.0 %???MCV - 98.4 femtoliters???MCH - 32.0 pg???MCHC - 32.5 g/dL???Platelet Count - 227 k/mm3???RDW-SD - 49.5 femtoliters???MPV - 10.8 femtoliters???Nucleated RBC (Automated) - 0.0 #/100 WBC'S???Abs. NRBC - 0.0 k/mm3 CBC w/ Differential (04/19/2023) ???WBC - 10.3 k/mm3???RBC - 4.05 m/mm3???Hgb - 13.2 Gm/dL???Hct - 40.1 %???MCV - 99.0 femtoliters???MCH - 32.6 pg???MCHC - 32.9 g/dL???Platelet Count - 238 k/mm3???RDW-SD - 49.8 femtoliters???MPV - 10.8 femtoliters???Nucleated RBC (Automated) - 0.0 #/100 WBC'S???Abs. NRBC - 0.0 k/mm3???Abs. Neut - 7.6 k/mm3???Abs. Lymph - 1.2 k/mm3???Abs. [place] - 1.1 k/mm3???Abs. Eo - 0.1 k/mm3???Abs. Baso - 0.1 k/mm3???Neut % - 73.3 %???Lymph % - 11.7 %???[place] % - 10.3 %???Eos % - 1.1 %???Baso % - 1.0 %???Imm Gran - 2.6 %???Abs. Imm Gran - 0.3 k/mm3 High??Sensitivity??Troponin T (04/19/2023) ???High Sensitivity Troponin (HSTnT) - 25 ng/L Hold Blue Top Tube (04/19/2023) ???Hold Blue Top - SPECIMEN DISCARDED AFTER 4 HOURS. HOLD LAVENDER TUBE (04/19/2023) ???Hold Lavender Top - SPECIMEN DISCARDED AFTER 24 HOURS. INR (04/20/2023) ???INR - 1.6???Protime (PT) - 16.0 seconds Magnesium Level (04/20/2023) ???Magnesium - 2.5 mg/dL Phosphorus Level (04/20/2023) ???Phosphorus - 3.3 mg/dL Troponin T, High Sensitivity (04/19/2023) ???High Sensitivity Troponin (HSTnT) - 26 ng/L Allergies (NKA means No Known Allergies) Avelox Avocado Bee Stings Biaxin Contrast Dye Flagyl Gastrografin Levaquin??(Avocado) Mold Novocain Shrimp Voltaren Zithromax barium sulfate busPIRone??(Feeling of throat tightness, Headache, Dizziness) ciprofloxacin erythromycin gentamicin iodinated radiocontrast dyes ipratropium morphine penicillin sulfa drugs vancomycin Problems Active Problems??(26) Antiphospholipid syndrome?? Anxiety?? CHF - Congestive heart failure?? Constipation?? 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?? Coronary artery disease?? MIS (generalized anxiety disorder)?? Gastroesophageal reflux disease?? Hematochezia?? Heterozygous Factor V Leiden mutation?? HTN (hypertension)?? Hyperlipidemia?? Hypothyroidism?? Insomnia?? Mitral regurgitation?? Mitral valve prolapse?? Obstructive sleep apnea treated with BiPAP?? Occipital headache?? Optic neuritis?? Osteoporosis?? Platelet dysfunction?? Platelet function defect?? Radiation pneumonitis?? SVT (supraventricular tachycardia)?? Thoracic compression fracture?? Vertigo?? Education Materials Below is the list of Educational Leaflet Providered with your Discharge Instructions. Valuables and Belongings I fully understand and agree that [facility] accepts no responsibility for all my personal property including clothing, toilet articles, radios, jewelry, dentures, hearing aids, rings, money, or any other property that is in my possession or is brought to me after admission. I understand certain valuables may be placed in a hospital safe for a short period of time. I understand that the hospital is not liable for loss or damage due to accident, fire, or other natural occurrence while said property is in the safe. I accept full responsibility for any personal property that I keep with me, and will not hold the hospital responsible in case of loss or disappearance. I acknowledge that i have been encouraged to send valuables and belongings home. ?? No Valuables/Belongings: No valuables/belongings present Review of Valuable and Belonging List: With patient Date for Pt to Sign Valuables/Belongings: 04/19/23 15:36:00 ?? Other Discharge Information ? Pulmonary Rehab Status?? Pulmonary Rehab Discharge Status?? Respiratory Rate: 17 br/min ? Common Emergency Awareness Tips IS IT A STROKE? Act FAST and Check for these signs: FACE Does the face look uneven? ARM Does one arm drift down? SPEECH Does their speech sound strange? TIME Call at any sign of stroke ?? Heart Attack Signs Chest discomfort: Most heart attacks involve discomfort in the center of the chest and lasts more than a few minutes, or goes away and comes back. It can feel like uncomfortable pressure, squeezing, fullness or pain. Discomfort in upper body: Symptoms can include pain or discomfort in one or both arms, back, neck, jaw or stomach. Shortness of breath: With or without discomfort. Other signs: Breaking out in a cold sweat, nausea, or lightheaded. Remember, MINUTES DO MATTER. If you experience any of these heart attack warning signs, call to get immediate medical attention! ?? Smoking can increase your chances of developing chronic health problems and can cause harmful effects to other family members in your house. If you smoke, you are strongly encouraged to quit. Please call [facility] [employer] Link at [phone] or [phone] ([phone]) or log in to [email or web address] for referrals to smoking cessation programs. ?? 889 Suicide & Crisis Lifeline is available 30/01 if you or someone you know needs to find a reason to keep living. By calling 777 you'll be connected to a skilled, trained counselor at a crisis center in your area. INPATIENT DISCHARGE INSTRUCTIONS SIGNATURE PAGE CINDA WATSON Location:[facility] Registration Date and Time:04/19/2023 11:42 EDT Primary Care Physician: Caitlyn Bowie MD, Attending Physician: Ketan Wells MD, I CINDA WATSON, have received the above patient education materials/instructions and have verbalized understanding. If ambulance or transport services are being used I further acknowledge being given a choice of service. ?? If you need to contact me, please call me at this number: . Patient/Application Tester Name: Patient/Application Tester Signature: Relationship to Patient: Witness Name/Signature: Date: * Sheila Garcia RN: PERFORM Event Display: Patient Education Leaflets Authored Date: [id number] Noncardiac Chest Pain ?? [id number] Noncardiac Chest Pain In most cases, people who come to the emergency room with chest pain don???t have a problem with their heart. Instead, the pain is caused by other conditions. It's important for the healthcare team to be sure you are not having a life-threatening cause for chest pain such as: ??? Heart attack ??? Blood clot in the lungs ??? Collapsed lung ??? Ruptured esophagus ??? Tearing of the aorta Once these major causes have been ruled out, you may have further evaluation for other causes of chest pain. These may be problems with the lungs, muscles, bones, digestive tract, nerves, or mental health. They include: ??? Inflammation around the lungs (pleurisy) ??? Collapsed lung (pneumothorax) ??? Lung inflammation (pleuritis or pneumonitis) ??? Fluid around the lung (pleural effusion) ??? Lung cancer (rare cause of chest pain) ??? Inflamed cartilage between the ribs (costochondritis) ??? Fibromyalgia ??? Rheumatoid arthritis ??? Chest wall strain ??? Reflux ??? Stomach ulcer ??? Spasms of the esophagus ??? Gall stones ??? Gallbladder inflammation ??? Panic or anxiety attacks ??? Emotional distress Your pain doesn???t seem to be coming from your heart. But sometimes the signs of a serious problemtake more time to appear. Continue to watch for the warning signs listed below. Home care Follow these guidelines when caring for yourself at home: ??? Rest today and don't do any strenuousactivity. ??? Take any prescribed medicine as directed. ?? Follow-up care Follow up with your healthcare provider as advised. ?? Call 911 Call 911 if any of these occur: ??? A change in the type of pain: if it feels different, becomes more severe, lasts longer, or begins to spread into your shoulder, arm, neck, jaw or back ??? Shortness of breath or increased pain with breathing ??? Weakness, dizziness, or fainting ??? Rapid heart beat ??? Crushing sensation in your chest ?? When to seek medical advice Call your healthcare provider right away if any of these occur: ??? Cough with dark colored sputum (phlegm) or blood ??? Fever of 100.4??F (38??C) or higher, or as directed by your healthcare provider ??? Swelling, pain or redness in one leg ?? Last Reviewed Date: 2021 ?? [employer]. All rights reserved. This information is not intended as a substitute for professional medical care. Always follow your healthcare professional's instructions. ?? Patient Care team information Care Team Personnel Name: Val Wynne Position: [facility] RN Member Role: Primary Care Nurse Name: Karen Pittman RN Position: S RN Member Role: Primary Care Nurse Name: Shilpi Mattson Position: Reference Physician Member Role: Primary Care Nurse Address: Address: [address] [address]- [place] Name: Toyin Doherty RN Position: [facility] RN Member Role: Primary Care Nurse Name: Eben Hernandez NP Position: [facility] Associate Professional Member Role: Lifetime Consulting Provider Address: Address: [address] [place] [address]- [place] Name: Alejandrina Turner RN Position: [facility] RN Member Role: Primary Care Nurse Name: Zoraida Felix RN Position: [facility] RN Member Role: Primary Care Nurse Name: Daphne Hooker RN Position: [facility] RN Member Role: Primary Care Nurse Name: Nasima Gonzalez RN Position: [facility] RN Loyda Member Role: Primary Care Nurse Name: Caitlyn Bowie MD Position: [facility] Physician - Primary Care Member Role: PCP Address: Address: [address] [place] [address]- [place] Name: Kiki Abdi RN Position: [facility] RN Member Role: Primary Care Nurse Name: Marry Reza Position: [facility] RN Member Role: Primary Care Nurse Name: Veronica Hurst MA Position: [facility] SALLY MA Member Role: Lifetime Consulting Physician Name: Yudith Ruiz RN Position: [facility] Onco RN Member Role: Primary Care Nurse Name: Maddie Herrera RN Position: [facility] AMB [...] Care Nurse Name: Katherine Nixon PharmD Position: [facility] Associate Professional Member Role: Lifetime Consulting Provider Address: Address: [address] [place] [address]- [place] Name: Daphne Barton RN [facility] Care Nurse Name: Pallavi Wylie LPN Position: [facility] RN Member Role: Primary Care Nurse Name: Parris Zuluaga RN Position: [facility] RN Member Role: Primary Care Nurse Name: Jada GONZALEZ Attending Position: [facility] ED Medicine MD Name: Demetra Johnston Position: [facility] Associate Professional Member Role: ED Physician Senior Net Software Developer Address: Address: [address] [place] [address] Name: Eliza Sykes Position: [facility] ED RN W/OE and Tasks Member Role: Patient Care Provider Name: Honey Cintron Position: [facility] ED TA [facility] Member Role: Patient Care Provider Name: Sherron Pride RN Position: [facility] ED RN W/OE and Tasks Member Role: Patient Care Provider Care Team Related Persons Name: ZENAIDA FLORES Address: [place] [address] Name: TIA RIVERS Address: [place] [address] Name: JOHANN RETANA Address: [place], [place]
--- OUTSIDE RECORDS SUMMARY | 2023-10-14 16:39 | XMS_ITS | Continuity of Care Document ---
Author Organization [facility] Address [address] [place] [address]- Care Team Providers Care Therapeutic Assistant Name Role Phone Caitlyn Bowie MD Primary Care Physician [phone] [place] [facility] [place](s): 01/12/23 - 02/11/23 [facility] [address] [place] [address]- Allergies, Adverse Reactions, Alerts Substance Reaction Severity Status ciprofloxacin Active barium sulfate Active Voltaren Active gentamicin Active erythromycin Active penicillin 1 Active vancomycin Active busPIRone Feeling of throat ti ghtness Headache Dizziness Active ipratropium Active morphine Active sulfa drugs Active iodinated radiocontrast dyes Active Gastrografin Active Levaquin Avocado Active Avelox Active Zithromax Active Flagyl Active Novocain Active Biaxin Active Bee Stings Active Contrast Dye Active Avocado Active Mold Active Shrimp Active 1Allergy testing doen 09/26 was negative so unlikely she is allergic to this Immunizations Given and Recorded Vaccine Date Status Refusal Reason influenza virus vaccine, inactivated 05/13/22 Ulis rded influenza virus vaccine, inactivated 05/15/21 Luis [...] Care Team Personnel Name: Val Wynne Position: [facility] Onco RN Member Role: Primary Care Nurse Name: Karen Pittman RN Position: [facility] RN Member Role: Primary Care Nurse Name: Shilpi Mattson Position: Reference Physician Member Role: Primary Care Nurse Address: Address: [address] [place] [address]- Name: Toyin Doherty RN Position: [facility] RN Member Role: Primary Care Nurse Name: Eben Hernandez NP Position: [facility] Associate Professional Member Role: Lifetime Consulting Provider Address: Address: [address] [place] [address]- [place] Name: Alejandrina Turner RN Position: [facility] RN Member Role: Primary Care Nurse Name: Zoraida Felix RN Position: [facility] RN Member Role: Primary Care Nurse Name: Daphne Hooker RN Position: [facility] RN Member Role: Primary Care Nurse Name: Nasima Gonzalez RN Position: [facility] RN Suprodney Member Role: Primary Care Nurse Name: Caitlyn Bowie MD Position: [facility] Physician - Primary Care Member Role: PCP Address: Address: [address] [place] [address]- [place] Name: Kiki Abdi RN Position: [facility] RN Member Role: Primary Care Nurse Name: Marry Reza Position: [facility] RN Member Role: Primary Care Nurse Name: Veronica Hurst MA Position: [facility] SALLY JORGENSEN Member Role: Lifetime Consulting Physician Name: Maddie Herrera RN Position: [facility] AMB Nurse Member Role: Primary Care Nurse Name: Raegan Baptiste RN Position: [facility] RN Member Role: Primary Care Nurse Name: Svitlana Marcum RN Position: [facility] AMB Nurse Member Role: Primary Care Nurse Name: She Pool Position: [facility] RN Member Role: Primary Care Nurse Name: Kaila Latham RN Position: [facility] RN Member Role: Primary Care Nurse Name: Julio C Bahena Position: [facility] RN Member Role: Primary Care Nurse Name: Nasima Heredia RN Position: [facility] RN Member Role: Primary Care Nurse Name: Katherine Nixon PharmD Position: [facility] Associate Professional Member Role: Lifetime Consulting Provider Address: Address: [address] [place] [address] Name: Daphne Barton RN Position: [facility] RN Member Role: Primary Care Nurse Name: Katherine Long RN Position: [facility] RN Member Role: Primary Care Nurse Name: Norma Serrano RN Position: [facility] RN Member Role: Primary Care Nurse Name: Seven Kelly RN Position: [facility] RN Member Role: Primary Care Nurse Name: Fani Perez RN Position: [facility] RN Member Role: Primary Care Nurse Name: Hattie Brewster RN Position: [facility] RN Member Role: Primary Care Nurse Name: Yudith Rothman RN Position: [facility] Onco RN Member Role: Primary Care Nurse Name: Kelly Hernandez RN Position: [facility] RN Member Role: Primary Care Nurse Name: Parris Zuluaga RN Position: [facility] RN Member Role: Primary Care Nurse Care Team Related Persons Name: ZENAIDA FLORES Address: [place] [address] Name: TIA RIVERS Address: [place] [address] Name: JOHANN RETANA Address: [place] [address]
--- OUTSIDE RECORDS SUMMARY | 2023-10-14 16:39 | XMS_ITS | Continuity of Care Document ---
Author Organization [facility] Address [address] [place] [address]- Care Team Providers Care Timers Inspector Name Role Phone Caitlyn Bowie MD Primary Care Physician [place] [facility] [place] 05/[place]/23 [facility] [address] [place] [id number] Allergies, Adverse Reactions, Alerts Substance Reaction Severity [...] Member Role: Primary Care Nurse Address: Address: [address] [place] [address]- Name: Toyin Doherty RN Position: S RN Member Role: Primary Care Nurse Name: Eben Hernandez NP Position: [facility] Associate Professional Member Role: Lifetime Consulting Provider Address: Address: [address] [place] [address]- Name: Alejandrina Turner RN Position: [facility] RN Member Role: Primary Care Nurse Name: Zoraida Felix RN Position: [facility] RN Member Role: Primary Care Nurse Name: Daphne Hooker RN Position: [facility] RN Member Role: Primary Care Nurse Name: Nasima Gonzalez RN Position: [facility] RN Supv Member Role: Primary Care Nurse Name: Caitlyn Bowie MD Position: [facility] Physician - Primary Care Member Role: PCP Address: Address: [address] [place] [address]- Name: Kiki Abdi RN Position: [facility] RN Member Role: Primary Care Nurse Name: Marry Reza Position: S RN Member Role: Primary Care Nurse Name: Veronica Hurst MA Position: [facility] SALLY MA Member Role: Lifetime Consulting Physician Name: Yudith Ruiz RN Position: [facility] Onco RN Member Role: Primary Care Nurse Name: Maddie Herrera RN Position: [facility] AMB Nurse Member Role: Primary Care Nurse Name: Raegan Baptiste RN Position: S RN Member Role: Primary Care Nurse Name: She Pool Position: [facility] RN Member Role: Primary Care Nurse Name: Kaila Latham RN Position: [facility] RN Member Role: Primary Care Nurse Name: Julio C Bahena Position: S RN Member Role: Primary Care Nurse Name: Nasima Heredia RN Position: [facility] RN Member Role: Primary Care Nurse Name: Katherine Nixon PharmD Position: [facility] Associate Professional Member Role: Lifetime Consulting Provider Address: Address: [address] [place] [address] Name: Daphne Barton RN Position: [facility] RN Member Role: Primary Care Nurse Name: Katherine Long RN Position: [facility] RN Member Role: Primary Care Nurse Name: Norma Serrano RN Position: [facility] RN Member Role: Primary Care Nurse Name: Seven Kelly RN Position: [facility] RN Member Role: Primary Care Nurse Name: Fani Perez RN Position: [facility] RN Member Role: Primary Care Nurse Name: Hattie Brewster RN Position: [facility] RN Member Role: Primary Care Nurse Name: Kelly Hernandez RN Position: [facility] RN Member Role: Primary Care Nurse Name: Pallavi Wylie LPN Position: [facility] RN Member Role: Primary Care Nurse Name: Parris Zuluaga RN Position: [facility] RN Member Role: Primary Care Nurse Care Team Related Persons Name: ZENAIDA FLORES Address: [place], [place] Name: TIA RIVERS Address: [place] [address] Name: JOHANN RETANA Address: home [place], [place]
--- OUTSIDE RECORDS SUMMARY | 2023-10-14 16:39 | XMS_ITS | Continuity of Care Document ---
Author Organization [facility] Card[facility] Address [address] [place] [address]- Care Team Providers Care Acid Leveler Name Role Phone Caitlyn Bowie MD Primary Care Physician [phone] Encounter [facility] [place] Date(s): 07/28/23 - 08/27/23 [facility] [address] [place] [address]- [place] Allergies, Adverse Reactions, Alerts Substance Reaction Severity Status ciprofloxacin Active clindamycin throat tightening Active vancomycin Active barium sulfate Active iodinated radiocontrast dyes Active gentamicin Active erythromycin Active penicillin 1 Active busPIRone Feeling of throat ti ghtness Headache Dizziness Active ipratropium Active morphine Active sulfa drugs Active Voltaren Active Zithromax Active Novocain Active Biaxin Active Flagyl Active Gastrografin Active Bee Stings Active Contrast [...] 180 tablet, 2 Refills, Maintenance, 07/28/23 16:38:00 [facility], [facility], Partial fill [...] Care Team Personnel Name: Val Wynne Position: [facility] Onco RN Member Role: Primary Care Nurse Name: Karen Pittman RN Position: [facility] RN Member Role: Primary Care Nurse Name: Shilpi Mattson Position: Reference Physician Member Role: Primary Care Nurse Address: Address: [address] [place] [address]- Name: Toyin Doherty RN Position: [facility] RN Member Role: Primary Care Nurse Name: Eben Hernandez NP Position: [facility] Associate Professional Member Role: Lifetime Consulting Provider Address: Address: [address] [place] [address]- Name: Alejandrina Turner RN Position: [facility] RN Member Role: Primary Care Nurse Name: Zoraida Felix RN Position: [facility] ED RN W/OE and Tasks Member Role: Primary Care Nurse Name: Jaye Harley Position: [facility] [place] [employer] Member Role: Shovel Logger Name: Daphne Hooker RN Position: [facility] RN Member Role: Primary Care Nurse Name: Nasima Gonzalez RN Position: [facility] RN Loyda Member Role: Primary Care Nurse Name: Caitlyn Bowie MD Position: [facility] Physician - Primary Care Member Role: PCP Address: Address: [address] [place] [address]- Name: Kiki Abdi RN Position: [facility] RN Member Role: Primary Care Nurse Name: Marry Reza Position: [facility] RN Member Role: Primary Care Nurse Name: Veronica Hurst MA Position: [facility] AMB MA Member Role: Lifetime Consulting Physician Name: Maddie Herrera RN Position: [facility] AMB Nurse Member Role: Primary Care Nurse Name: Yudith Herrera RN Position: [facility] Onco RN Member Role: Primary Care Nurse Name: Raegan Baptiste RN Position: [facility] RN Member Role: Primary Care Nurse Name: She Pool Position: [facility] RN Member Role: Primary Care Nurse Name: Kaila Latham RN Position: [facility] RN Member Role: Primary Care Nurse Name: Julio C Bahena Position: [facility] RN Member Role: Primary Care Nurse Name: Nasima Heredia RN Position: [facility] RN Member Role: Primary Care Nurse Name: Katherine Nixon PharmD Position: [facility] Associate Professional Member Role: Lifetime Consulting Provider Address: Address: [address] [place] [address]- Name: Daphne Barton RN Position: [facility] RN Member Role: Primary Care Nurse Name: Katherine Long RN Position: [facility] RN Member Role: Primary Care Nurse Name: Norma Serrano RN Position: [facility] RN Member Role: Primary Care Nurse Name: Seven Kelly RN Position: [facility] ED RN W/OE and Tasks Member Role: Primary Care Nurse Name: Fani Perez RN Position: [facility] RN Member Role: Primary Care Nurse Name: Hattie Brewster RN Position: [facility] RN Member Role: Primary Care Nurse Name: Kelly Hernandez RN Position: [facility] RN Member Role: Primary Care Nurse Name: Pallavi Wylie LPN Position: [facility] RN Member Role: Primary Care Nurse Name: Margareth YOU, Parris Position: [facility] RN Member Role: Primary Care Nurse Care Team Related Persons Name: ZENAIDA FLORES Address: [place] [address] Name: TIA RIVERS Address: [place] [address] Name: JOHANN RETANA Address: [place] [address]
--- OUTSIDE RECORDS SUMMARY | 2023-10-14 16:39 | XMS_ITS | Continuity of Care Document ---
Author Organization [facility] Address [address] [place] [address]- Care Team Providers Care Multineedle Shirrer Name Role Phone Caitlyn Bowie MD Primary Care Physician Encounter [facility] [place] Date(s): 01/19/23 - 01/26/23 [facility] [address] [place], [place] [address] Encounter Diagnosis Compression fracture of lumbar spine, non-traumatic(Discharge Diagnosis) - 01/19/23 Sacral pain(Discharge Diagnosis) - 01/19/23 Superficial thrombosis of leg(Discharge Diagnosis) - 01/19/23 Attending Physician: Irene Patel MD Referring Physician: Caitlyn Bowie MD Allergies, [...] 0 Refills, Maintenance, 09/09/22 11:47:00[facility], [facility], Partial fill upon patient request [...] Refills, Maintenance, 12/29/22 11:57:00 [facility], [facility], Partial fill upon patient request [...] 180 tablet, 2 Refills, Maintenance, 06/15/22 11:59:00 [facility], [...] Effective Dates Health Status Clinical Service Informant Compression fracture of lumbar spine, non-traumatic Discharge Diagnosis 01/19/23 Sacral pain Discharge Diagnosis 01/19/23 Superficial thrombosis of leg Discharge Diagnosis 01/19/23 Vital Signs Most recent to oldest [Reference Range]: 1 Height 158 cm (01/19/23 9:47 AM) Weight 59.5 kg (01/19/23 9:47 AM) Oxygen Saturation [94-100 %] 97 % (01/19/23 9:47 AM) Pulse Rate [55-90 bpm] 97 bpm *H* (01/19/23 9:47 AM) Body Mass Index [18.5-24.99 kg/m2] 23.83 kg/m2 (01/19/23 9:47 AM) Blood Pressure [90-138/55-84 mm Hg] 112/ 60mm Hg (01/19/23 9:47 AM) Blood pressure sites Arm, left (01/19/23 9:47 AM) Weight Obtained Via Standing scale (7/13/23 9:47 AM) Social History Social History Type Response Smoking Status Never smoker; Tobacc o user in household: No entered on: 04/05/17 Sex Female Note * Caitie Vargas: PERFORM, SIGN, VERIFY Event Display: Patient Education/Instruction Authored Date: [id number] [facility] Clinical Summary Name CINDA WATSON Age 77 Years 1945 PCP Caitlyn Bowie MD PCP Visit Date 01/19/2023 09:36:00 Patient Instructions take Tylenol 1000 mg three times a day get xray of lumbar spine and sacrum Additional Instructions: Scheduled Appointments?? Future Appointments ?*[facility],??[place],??[address] ?Phone:??--?Fax:??-- ?Appt. Date:??02/16/2023?11:40 AM ?Scheduled Provider:??Rashaad STARK, Anish Anne ?*[facility]??Cardiology1 [address]??[place],??[place],??[address] ?Phone:??--?Fax:??-- ?Appt. Date:??03/24/2023?10:25 AM ?Scheduled Provider:??Leno Camarillo MD ?*[facility]Adult??Ped ?[address]??[place],??[place],??[address] ?Phone:??--?Fax:??-- ?Appt. Date:??04/06/2023?11:00 AM ?Scheduled Provider:??Caitlyn Bowie MD Follow-Up Instructions ?? Diagnosis Collapsed vertebra, not elsewhere classified, lumbar region, initial encounter for fracture; Embolism and thrombosis of superficial veins of unspecified lower extremity; Sacrococcygeal disorders, notelsewhere classified Medications: Please continue your medications until treatment is completed or stopped by your provider. Discuss any questions related to medications with your provider. Medications to Continue Taking That Have Changed These medications were not printed or sent to your pharmacy - Furosemide 80 Milligram Daily. Next Dose: Medications to Continue with No Changes These medications were not printed or sent to your pharmacy Albuterol (albuterol 0.083% inhalation solution) 3 Milliliter Inhalation every 6 hours as needed for wheezing. Next Dose: Albuterol (Ventolin HFA 108 mcg/inh inhalation aerosol with adapter) 2 puff(s) Inhalation every 6 hours as needed Wheezing/Shortness of Breath. Next Dose: Codeine (codeine sulfate 30 mg oral tablet) take 1/2 to 1 tablet By Mouth BID; as needed as needed for pain. Refills: 0. Next Dose: Diazepam (diazepam 5 mg oral [...] Oral Daily. Monday & Monday's. Next Dose: magnesium sulfate topical (Theraworx Relief MCS topical foam) USE ON BACK. Refills: 0. Next Dose: Meclizine (meclizine 25 mg oral tablet) 1 tab(s) Oral 4 times a day as needed as needed for dizziness for 30 Days. Refills: 4. Next Dose: Metoprolol (Metoprolol Succinate [...] PredniSONE 5 Milligram Oral Daily. Next Dose: Ramelteon (ramelteon 8 mg oral tablet) 1 tab(s) Oral Daily at Bedtime. Refills: 0. Next Dose: Rosuvastatin (rosuvastatin 10 [...] Dose: No Longer Take the Following Medications umeclidinium (Incruse Ellipta 62.5 mcg/inh inhalation powder) Allergy Info:?? Avocado; Shrimp; Mold; Contrast Dye; Bee Stings; Avelox; Levaquin; Gastrografin; Biaxin; Novocain; Flagyl; Zithromax; Voltaren; iodinated radiocontrast dyes; sulfa drugs; barium sulfate; morphine; ipratropium; busPIRone; vancomycin; penicillin; erythromycin; gentamicin; ciprofloxacin Medications Given This Visit Future Orders ?Lumbar Spine 2 or 3 Views? Order Date:01/19/23?- Complete on or after?01/19/23 ?Sacroiliac Joints Min 3 Views? Order Date:01/19/23?- Complete on or after?01/19/23 Vital Signs Height 158 cm Weight 59.5 kg BMI 23.83 kg/m2 Blood Pressure 112 mm Hg/60 mm Hg Temperature Pulse Rate 97 bpm Respiratory Rate 02 Sat Mode of Delivery 97 %/ You can now view a summary of your hospital visit from the comfort of your home through a free online portal called [employer]. [employer] is a website that allows you to securely view your medical information including discharge summary, medications and follow-up visits. ??You can alsosend a secure electronic message to your doctor???s office to request appointments, renew medications or just ask a question. You can enroll at [email or web address] or register during your next office visit. [...] primary care provider, you may find a Critical Access Hospital provider by calling [facility] [email or web address] at [phone]. For information about the plan of care [...] Team Personnel Name: Val Wynne Position: [facility] Onco RN Member Role: Primary Care Nurse Name: Karen Pittman RN Position: [facility] RN Member Role: Primary Care Nurse Name: Shilpi Mattson Position: Reference Physician Member Role: Primary Care Nurse Address: Address: [address] [place] [address]- [place] Name: Toyin Doherty RN Position: [facility] RN Member Role: Primary Care Nurse Name: Eben Hernandez NP Position: [facility] Associate Professional Member Role: Lifetime Consulting Provider Address: Address: [address] [place] [address]- [place] Name: Alejandrina Turner RN Position: [facility] RN Member Role: Primary Care Nurse Name: Zoraida Felix RN Position: [facility] RN Member Role: Primary Care Nurse Name: Daphne Hooker RN Position: [facility] RN Member Role: Primary Care Nurse Name: Nasima Gonzalez RN Position: [facility] RN Suprodney Member Role: Primary Care Nurse Name: Caitlyn Bowie MD Position: [facility] Physician - Primary Care Member Role: PCP Address: Address: [address] [place] [address]- [place] Name: Kiki Abdi RN Position: [facility] RN Member Role: Primary Care Nurse Name: Marry Reza Position: [facility] RN Member Role: Primary Care Nurse Name: Veronica Hurst MA Position: [facility] SALLY MA Member Role: Lifetime Consulting Physician Name: Maddie Herrera RN Position: [facility] AMB Nurse Member Role: Primary Care Nurse Name: Raegan Baptiste RN Position: [facility] RN Member Role: Primary Care Nurse Name: Svitlana Marcum RN Position: [facility] AMB Nurse Member Role: Primary Care Nurse Name: She Pool Position: [facility] RN Member Role: Primary Care Nurse Name: Kaila Latham RN Position: [facility] MADELINE RN W/OE and Tasks Member Role: Primary Care Nurse Name: Julio C Bahena Position: [facility] RN Member Role: Primary Care Nurse Name: Nasima Heredia RN Position: [facility] RN Member Role: Primary Care Nurse Name: Katherine Nixon PharmD Position: [facility] Associate Professional Member Role: Lifetime Consulting Provider Address: Address: [address] [place] [address] Name: Daphne Barton RN Position: [facility] RN Member Role: Primary Care Nurse Name: Katherine Long RN Position: [facility] RN Member Role: Primary Care Nurse Name: Norma Serrano RN Position: [facility] RN Member Role: Primary Care Nurse Name: Seven Kelly RN Position: [facility] RN Member Role: Primary Care Nurse Name: Fani Perez RN Position: [facility] RN Member Role: Primary Care Nurse Name: Hattie Brewster RN Position: [facility] RN Member Role: Primary Care Nurse Name: Yudith Rothman RN Position: [facility] Onco RN Member Role: Primary Care Nurse Name: Kelly Hernandez RN Position: [facility] RN Member Role: Primary Care Nurse Name: Parris Zuluaga RN Position: [facility] RN Member Role: Primary Care Nurse Care Team Related Persons Name: ZENAIDA FLORES Address: [place] [address] Name: TIA RIVERS Address: [place] [address] Name: JOHANN RETANA Address: [place] [address]
--- OUTSIDE RECORDS SUMMARY | 2023-10-14 16:39 | XMS_ITS | Continuity of Care Document ---
Author Organization [facility] Address [address] [place] [address]- Care Team Providers Care Hydro Technician Name Role Phone Caityln Bowie MD Primary Care Physician [phone] Encounter [facility] Date(s): 09/07/22 - 10/07/22 [facility] [address] [place], [place] [address] Allergies, Adverse Reactions, Alerts Substance [...] Care Team Personnel Name: Val Wynne Position: [facility] Onco RN Member Role: Primary Care Nurse Name: Karen Pittman RN Position: [facility] RN Member Role: Primary Care Nurse Name: Shilpi Mattson Position: Reference Physician Member Role: Primary Care Nurse Address: Address: [address] [place] [address] [address] [place] [address]- [place] Name: Toyin Doherty RN Position: [facility] RN Member Role: Primary Care Nurse Name: Eben Hernandez NP Position: [facility] Associate Professional Member Role: Lifetime Consulting Provider Address: Address: [address] [place] [address]- Name: Alejandrina Turner RN Position: [facility] RN Member Role: Primary Care Nurse Name: Zoraida Felix RN Position: [facility] RN Member Role: Primary Care Nurse Name: Daphne Hooker RN Position: [facility] RN Member Role: Primary Care Nurse Name: Nasima Gonzalez RN Position: [facility] RN Suprodney Member Role: Primary Care Nurse Name: Caitlyn Bowie MD Position: [facility] Primary Care Physician Member Role: PCP Address: Address: [address] [place] [address]- Name: Sheeba García Position: [facility] RN Member Role: Primary Care Nurse Name: Kiki Abdi RN Position: [facility] RN Member Role: Primary Care Nurse Name: Marry Reza Position: [facility] RN Member Role: Primary Care Nurse Name: Veronica Hurst MA Position: [facility] PCO RN Member Role: Lifetime Consulting Physician Name: Maddie Herrera RN Position: [facility] RN Member Role: Primary Care Nurse Name: Raegan Baptiste RN Position: [facility] RN Member Role: Primary Care Nurse Name: Svitlana Marcum RN Position: [facility] AMB Nurse Member Role: Primary Care Nurse Name: She Pool Position: [facility] RN Member Role: Primary Care Nurse Name: Kaila Latham RN Position: [facility] RN Member Role: Primary Care Nurse Name: Julio C Bahena Position: [facility] RN Member Role: Primary Care Nurse Name: Nasima Heredia RN Position: [facility] RN Member Role: Primary Care Nurse Name: Katherine Nixon PharmD Position: [facility] Associate Professional Member Role: Lifetime Consulting Provider Address: Address: [address] [place] [address] Name: Daphne Barton RN Position: [facility] RN Member Role: Primary Care Nurse Name: Katherine Long RN Position: [facility] RN Member Role: Primary Care Nurse Name: Norma Serrano RN Position: [facility] RN Member Role: Primary Care Nurse Name: Seven Kelly RN Position: [facility] RN Member Role: Primary Care Nurse Name: Fani Perez RN Position: [facility] RN Member Role: Primary Care Nurse Name: Hattie Brewster RN Position: [facility] RN Member Role: Primary Care Nurse Name: Yudith Rothman RN Position: [facility] Onco RN Member Role: Primary Care Nurse Name: Kelly Hernandez RN Position: [facility] RN Member Role: Primary Care Nurse Name: Parris Zuluaga RN Position: [facility] RN Member Role: Primary Care Nurse Care Team Related Persons Name: ZENAIDA FLORES Address: [place], [place] Name: TIA RIVERS Address: [address] [address] Name: JOHANN RETANA Address: [place], [place]
--- OUTSIDE RECORDS SUMMARY | 2023-10-14 16:40 | XMS_ITS | Continuity of Care Document ---
Author Organization [facility] ter Address [address] [place] [id number]- Care Team Providers Care Education Assistant Name Role Phone Caitlyn Bowie MD Primary Care Physician Encounter [facility] Date(s): 06/20/22 - 06/28/22 [facility] [address] [place] [id number]- Discharge Disposition: A-D/C Home Attending Physician: Bobby Ontiveros MD Admitting Physician: Shaquille Che MD Referring Physician: Shaquille Che MD Allergies, Adverse Reactions, Alerts Substance Reaction [...] Refills, Maintenance, 06/28/22 14:17:00 EST, [facility], Partial fill upon patient request if the prescription is for aschedule II opioid drug., 160, cm, 06/28/22 11:54:00 ES... Start Date: 06/28/22 Stop Date: 08/27/22 Status: Ordered omeprazole 40 mg oral enteric coated capsule 1 capsule = 40 mg, By Mouth, Daily, PRN as needed, Maintenance, 05/16/22 11:22:00 EST, EC Capsule, ; Start Date: 05/16/22 Status: Ordered rosuvastatin 10 mg oral tablet [...] Status: Ordered traZODone 50 mg oral tablet 50 mg, 1, tablet, By Mouth, Daily at bedtime, Dr. [...] tablet = 2 mg, By Mouth, Daily, (Jovana want's to test her blood today, changes [...] Confirmed Active 1left eye 2lower extrem Results Radiology Reports * Exam Date Time Procedure Performing Provider Status 06/27/22 8:04 PM Chest Portable Tamir Ya; aD ( Verified) Notes: (Chest Portable) Reason For Exam: CHF RESULT: Chest Portable Chest Portable Reason: CHF; Clinical Question(s): CHF COMPARISON: 06/20/2022 FINDINGS: LINES AND TUBES: None. LUNGS AND PLEURA: Left base effusion improved compared to previous exam. Persistent reticular markings noted in the right lung may be chronic or possibly represent pulmonary edema. No pneumothorax. HEART, MEDIASTINUM AND PAULIE: Heart is normal in size. Normal mediastinal and hilar contour. BONES AND SOFT TISSUES: No acute abnormality. IMPRESSION: Improved left pleural effusion compared to previous examination. Persistent stable reticular markings in the right lung, nonspecific. WSN: [id number] Ordering Physician: Delmy Almanza Dictated By: Jere Shankar MD Dictated Date/Time: 06/27/22 10:06 p Reviewed By: Jere Shankar MD Signed By: Jere Shankar MD Signed Date/Time: 06/27/22 10:06 pm Transcribed By: MART Transcribed Date/Time: 06/27/22 10:03 pm * Exam Date Time Procedure Performing Provider Status 06/24/22 6:43 PM US Doppler Ext Lower Venous Bilat Yanira Sousa; Auth (Verified) Notes: (US Doppler Ext Lower Venous Bilat) Reason For Exam: Pain/Tenderness Extremities RESULT: US Doppler Ext Lower Venous Bilat US Doppler Ext Lower Venous Bilat Reason: Pain Tenderness Extremities; Clinical Question(s): Thrombosis COMPARISON: None IMAGING TECHNIQUE: Ultrasound of the veins from the groin through the calf was performed using grayscale, color, and spectral Doppler ultrasound assessing for complete compressibility and normal flowcharacteristics. FINDINGS: RIGHT LOWER EXTREMITY: Common femoral vein: Patent. No thrombosis. Femoral vein: Patent. No thrombosis. Popliteal vein: Patent. No thrombosis. Gastrocnemius veins: The visualized portions are patent without evidence of thrombosis. Peroneal veins: The visualized portions are patent without evidence of thrombosis. Posterior tibial veins: The visualized portions are patent without evidence of thrombosis. LEFT LOWER EXTREMITY: Common femoral vein: Patent. No thrombosis. Femoral vein: Patent. No thrombosis. Popliteal vein: Patent. No thrombosis. Gastrocnemius veins: The visualized portions are patent without evidence of thrombosis. Peroneal veins: The visualized portions are patent without evidence of thrombosis. Posterior tibial veins: The visualized portions are patent without evidence of thrombosis. OTHER FINDINGS: There is a calcified phlebolith or calcified valve in the right popliteal vein. IMPRESSION: No evidence of deep venous thrombosis. WSN: [id number] Ordering Physician: Robert Gamble Dictated By: Andre Damon MD Dictated Date/Time: 06/24/22 7:50 pm Reviewed By: Andre Damon MD Signed By: Andre Damon MD Signed Date/Time: 06/24/22 7:50 pm Transcribed By: MART Transcribed Date/Time: 06/24/22 7:49 pm * Exam Date Time Procedure Performing Provider Status 06/20/22 11:00 PM Chest Portable Vega , Yang; Auth (V erified) Notes: (Chest Portable) Reason For Exam: Shortness of Breath RESULT: Chest Portable Chest Portable Reason: Shortness of Breath; Clinical Question(s): Pneumonia COMPARISON: 06/03/2022 FINDINGS: LINES AND TUBES: None. LUNGS AND PLEURA: Increased density in the left lower hemithorax consistent with increasing pleural effusion with adjacent consolidation or atelectasis. Possible trace right pleural effusion without definite consolidation. HEART, MEDIASTINUM AND PAULIE: Unchanged. BONES AND SOFT TISSUES: No acute abnormality. IMPRESSION: Increasing left pleural effusion, likely moderate in size with adjacent atelectasis or consolidation. WSN: [id number] Ordering Physician: Yojana Valdes Dictated By: Juan C Blancas MD Dictated Date/Time: 06/21/22 0:01 am Reviewed By: Juan C Blancas MD Signed By: Juan C Blancas MD Signed Date/Time: 06/21/22 0:01 am Transcribed By: MART Transcribed Date/Time: 06/21/22 0:00 am Vital Signs Most recent to oldest [Reference Range]: 1 2 3 Height 160 cm (06/28/22 11:54 AM) 160 cm (06/28/22 7:42 AM) 160 cm (06/28/22 3:07 AM) Weight 59.5 kg (06/21/22 1:12 AM) 59.5 kg (06/20/22 9:49 PM) Oxygen Saturation [94-100 %] 99 % (06/28/22 11:54 AM) 94 % (06/28/22 7:42 AM) 100 % (06/28/22 4:28 AM) Pulse Rate [55-90 bpm] 77 bpm (06/28/22 11:54 AM) 72 bpm (06/28/22 7:42 AM) 86 bpm (06/28/22 3:07 AM) Body Mass Index [18.5-24.99 kg/m2] 23.24 kg/m2 (06/20/22 9:49 PM) Blood Pressure [90-138/55-84 mm Hg] 106/53mm Hg (06/28/22 11:54 AM) 90/41mm Hg (06/28/22 7:42 AM) 125/60mm Hg (06/28/22 3:07 AM) Respiratory Rate [16-30 br/min] 17 br/min (06/28/22 11:54 AM) 17 br/min (06/28/22 7:42 AM) 18 br/min (06/28/22 3:07 AM) Temperature [96.8-100.4 DegF] 98.1 DegF (06/28/22 11:54 AM) 98.5 DegF (06/28/22 7:42 AM) 98.2 DegF (06/28/22 3:07 AM) Liters per Minute 2 L/min (06/28/22 3:07 AM) 2 L/min (06/27/22 11:08 PM) 2 L/min (06/23/22 6:06 AM) Mode of Delivery (Oxygen) Room air (06/28/22 11:54 AM) Room air (06/28/22 7:42 AM) CPAP (06/28/22 3:07 AM) Blood pressure sites Arm, right (06/28/22 11:54 AM) Arm, right (06/28/22 7:42 AM) Arm, right (06/28/22 3:07 AM) Temperature Route Oral (06/28/22 11:54 AM) Oral (06/28/22 7:42 AM) Oral (06/28/22 3:07 AM) Dry Weight 59.5 kg (06/20/22 9:49 PM) Weight Obtained Via Bed scale (06/20/22 9:49 PM) Dry Weight Obtained Via Bed scale (06/20/22 9:49 PM) Social History Social History Type Response Smoking Status Never smoker; Tobacc o user in household: No entered on: 04/05/17 Sex Note * Monica Shaikh RN: PERFORM Event Display: Discharge/Transfer Note Hospital Authored Date: [id number] Nursing Discharge Note Entered On: 06/28/2022 16:46 EST Performed On: 06/28/2022 16:46 EST by Monica Shaikh RN Nursing Discharge Note 2 Discharge Time : 06/28/2022 16:39 EST Discharge Level of Care at Discharge : Homehealth/VNA Discharge VNA/Hospice/Home Care(v001) : [facility] Patient Left Unit Via : Wheelchair Patient Accompanied Off Unit with : Responsible adult DC Instructions Provided & Signed by Pt : Yes Patient Understands D/C Instructions : Yes Patient Instructions Discharge Signed : Yes Did Pt have Specialty Bed or Wound Vac : Yes Hawa YOU, Monica - 06/28/2022 16:46 EST * Savannah STARK, Robert D: PERFORM, MODIFY Event Display: Discharge/Transfer Note Hospital Authored Date: [id number] Patient: ??JOVANA WATSON ? Age:??77 Years?Sex:??Female?:??1945?? Patient Information Discharge Location: Primary Care Physician: Caitlyn Bowie MD Admit Date/Time: 06/20/22 20:47 Discharge Disposition Discharge Disposition: Home with Home Health Discharge Diagnosis Acute on chronic diastolic congestive heart failure (I50.33) Antiphospholipid antibody syndrome (D68.61) COPD exacerbation (J44.1) History of COPD (Z87.09) History of anxiety (Z86.59) History of hypertension (Z86.79) History of venous thromboembolism (Z86.718) NSTEMI (non-ST elevated myocardial infarction) (I21.4) NSTEMI, initial episode of care (I21.4) Pain in both lower legs (M79.661) Severe pulmonary hypertension (I27.20) Antiphospholipid syndrome Anxiety 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 Coronary artery disease Hypothyroidism Situational anxiety ?? _ Discharge Medications Albuterol (Ventolin HFA [...] 20 mg oral tablet)?20?Milligram?1?tablet?By Mouth?Daily?as needed?leg swelling Lanolin-Mineral Oil Topical (lanolin-mineral oil topical lotion)?See Instructions?USE TWICE DAILY levocetirizine (Xyzal 5 mg oral tablet)?1?tab(s)?5?Milligram?By Mouth?Daily [...] tablet, extended release)?25?Milligram?1?tablet?By Mouth?2 times a day Mirtazapine (mirtazapine 7.5 mg oral tablet)?1?tab(s)?7.5?Milligram?By Mouth?Daily at bedtime?for 30?Days Montelukast (Singulair 10 mg oral tablet)?10?Milligram?1?tablet?By Mouth?Daily inPM?Dr. Kelly Multivitamin (B-Complex SR)?1?tab(s)?By Mouth?Daily Omeprazole (omeprazole 40 mg oral enteric coated capsule)?1?capsule?40?Milligram?By Mouth?Daily?as needed?as needed Rosuvastatin (rosuvastatin 10 mg oral tablet)?1?tab(s)?10?Milligram?By Mouth?Every Monday, Monday and Monday Trazodone (traZODone 50 mg oral tablet)?50?Milligram?1?tablet?By Mouth?Daily at bedtime?Dr. Kelly Warfarin (warfarin 1 mg oral tablet)?2?tab(s)?2?Milligram?By Mouth?Daily?(Jovana want's to test her blood today, changes with INR) Warfarin (warfarin 1 mg oral tablet)?See Instructions?take 1-2 ??tablets By Mouth Daily as directed by the anticoagulation clinic ? Quality Measures Chest Pain, AMI Quality Measures:? Medications Started Mirtazapine Medications Discontinued none Doses Changed none Allergies Allergies ?(Active and Proposed Allergies Only) busPIRone? (Severity: Unknown severity, Onset: Unknown) ?Reactions: Dizziness, Headache, Feeling of throat tightness Avocado? (Severity: Unknown severity, Onset: Unknown) ipratropium? (Severity: Unknown severity, Onset: Unknown) penicillin? (Severity: Unknown severity, Onset: Unknown) ?Comments: Allergy testing greta 09/26 was negative so unlikely she is [...] drugs? (Severity: Unknown severity, Onset: Unknown) ? PCP Follow-Up/Heads-Up 1.?? Patient is to follow-up??with cardiology??and psychiatry??in 1 to 2 weeks of discharge. 2. ??Inpatient psychiatry was consulted and recommended starting mirtazapine however patient??wantsto research on the same before starting. ?? Future Appointments Monday 1:00 PM EST ?? With: Where: [facility] Radiology [facility] [address], [address] [place] [address] 2022 11:00 AM EST ?? With: Azeb STARK, Caitlyn Thompson Where: [facility] [address] [place] [address]- Hospital Course ??77-year-old pleasant female patient with history of COPD/KANDY???on BiPAP nightly and home O2 inhalation as needed???2 L, pulmonary hypertension, antiphospholipid antibody syndrome with history of PE/DVT???on chronic warfarin???goal of INR 1.5-2 due to history of platelet dysfunction, stage IIIa lung cancer status post left lower lobe lobectomy and neoadjuvant chemoradiation, radiation pulmonary fibrosis, nonobstructive CAD status post NSTEMI, heart failure with preserved ejection fraction, hypothyroidism, hypogammaglobulinemia, recent admission for influenza A with COPD exacerbation at [facility]-she was recently admitted at [facility] on June 14??for COPD extubation and found to have NSTEMI. ??Was transferred??in discussion with cardiology and pulmonary for further management to [facility].??Cardiac cath on 06/21:non-obstructive; 40-50% mid LAD stenosis - similar to previous cath.?? RHC with severe pulm HTN. ??Patient's presentation??consistent with Takotsubo cardiomyopathy per cath notes . ??thoracentesis deferred??as patient improving with diuresis..?Patient??did not??therapeutic INR??after starting Coumadin??and heparin bridge.?Patient is on INR monitoring machine at home??and follows up with [facility] Coumadin clinic home I spoke to in person prior to discharge.?? Patient continues to have?? anxiety??wanting to talk to all the consultantsagain??which is related to both pulmonology??and Dr. Hogan and overnight on 06/27/2022??psychiatry consult was placed recommended starting mirtazapine??however??patient??does not wish to start ituntil she does her own research on the same.?? Patient has been advised??to follow-up with primary care physician and cardiology and pulmonology and psychiatry outpatient??sooner??in 2 to 4 weeks of discharge.?? She will also have repeat echocardiogram??which is currently attempting to schedule??in [place]. ?? # NSTEMI # History of??CAD/NSTEMI???nonocclusive cath # Hyperlipidemia, history of allergy to iodinated contrast # Takasubo cardiomyopathy ?? s/p??prednisone due to history of??allergy to??iodinated contrast Echo at outside hospital showed??apical lateral hypokinesis and apical and apical septal akinesis. Cardiac cath on 06/21:non-obstructive; 40-50% mid LAD stenosis - similar to previous cath per cath report patient presentation consistent with?? Takasubo cardiomyopathy Aggressive secondary risk factor modification according to ATP III??guidelines. Continue statin -Discharged on metoprolol, she is not on aspirin??given platelet dysfunction and easy bleeding??while being on Coumadin. ? # Dyspnea # B/L Pleural effusion # Severe Pulmonary HTN -# Acute on chronic diastolic heart failure in exacerbation - she daily??and also has been advised to take additional Lasix 20??if she continues to have shortness of breath and leg swelling. -b/l pleural effusion - Home O2 evaluation done and she did not qualify for the same.?? Doing well on room air. ? # History of antiphospholipid antibody syndrome # History of VTE # History of platelet dysfunction - Patient [facility] Mills[facility]??as well as Dr. Hogan from [facility]. ??Requesting Dr. Ramírez?? notified. ?? -Patient's INR therapeutic 1.8??at discharge. ??Patient's goal 1.5-2.?? Coumadin clinic??at [facility] will continue to follow. ?? # COPD with exacerbation???resolved # Recent treatment for pneumonia???completed antibiotics # IIIa lung cancer status post left lower lobe lobectomy and neoadjuvant chemoradiation, radiation pulmonary fibrosis, Continue DuoNeb standing and as needed - stable ?? # Hemoptysis???scant volume Patient has had about 1-2 episodes of dime sized hemoptysis??daily??over last few days Continue to monitor closely ?? # Hypothyroidism Continue levothyroxine 25??Monday to Monday Continue levothyroxine 50??Monday and Monday ?? # Hypertension :? continue metoprolol 25 twice daily ?? #Anxiety Continue Valium??as needed -??Psychiatry consulted,??recommended starting mirtazapine, prescription sent to patient's pharmacy. ??Patient will decide on feeling the same after doing her own research. ?? Leukocytosis:??Patient's white count 14 K??however??chest x-ray does not show any new infiltrate, only pleural effusion which is improving compared to previous imaging.?? Also patient denies any dysuria no diarrhea, it is noted that all cell lines are concentrated??and likely secondary to Lasix andvolume removal.?? No fever ?? Sat down and spoke to patient multiple times yesterday and today??and have counseled about post discharge plan of care??and??allayed her ??anxiety.?? Aleksandra updated prior to discharge Objective Assessment and Plan ? Vital Signs?? Temperature: 98.1 DegF (06/28/22 11:54:00) Temperature Route: Oral (06/28/22 11:54:00) Pulse Rate: 77 bpm (06/28/22 11:54:00) Heart Rate Monitored: 84 bpm (06/28/22 04:28:00) Respiratory Rate: 17 br/min (06/28/22 11:54:00) Systolic Blood Pressure: 106 mm Hg (06/28/22 11:54:00) Diastolic Blood Pressure:??53 mm Hg??Low (06/28/22 11:54:00) Blood pressure sites: Arm, right (06/28/22 11:54:00) Mean Arterial Pressure: 71 mm Hg (06/28/22 11:54:00) Pulse Pressure: 53 mm Hg (06/28/22 11:54:00) Oxygen Saturation: 99 % (06/28/22 11:54:00) Liters per Minute: 2 L/min (06/28/22 03:07:00) Mode of Delivery (Oxygen): Room air (06/28/22 11:54:00) Early Warning Score: 0 (06/28/22 14:08:15) ? . Physical Exam General: Is appears comfortable in no distress HEENT: ??mucous mucous membranes appear wet, PERRLA Cardiovascular: S1-S2 heard no murmurs appreciated Respiratory: CTA without any wheezing or crackles anteriorly, GI: Abdomen nontender to palpation, no distention, no obvious hepatosplenomegaly Neuro: AOx3 plus date of , able to raise all extremities on commands Psych: Appears calm without any agitation Consultants Pulm , Cards and Psyc Pending Results Add On Lab Order ordered on 06/28/2022 Add On Lab Order ordered on 06/28/2022 CBC ordered on 06/24/2022 COVID-19 (2019 Novel Coronavirus) PCR ordered on 06/27/2022 INR ordered on 06/24/2022 PTT ordered on 06/26/2022??w Follow-Up Appointments Added Follow Up ?Time Frame ?Comments Luis Eduardo Cadet MD?1 to 2 weeks Caitlyn Bowie MD?1 to 2 weeks Patient Instructions 1. It was recommended for you to start mirtazapine for your anxiety/depression per psychiatrist.?? You have chosen to research on it and then start.?? I have sent the prescription to your [facility] pharmacy 2.?? Please follow-up with your roving technician as well as primary care physician in 1 to 2 weeks of discharge. 3.?? You will be going home on your Coumadin 2 mg dose as discussed with you and Coumadin clinic.??Continue to check your INR at home every other day for the first week and discussed with Coumadin clinic for further management ??4.?? You have been on Lasix 20 mg at home.?? If you notice that your leg swelling and your shortness of breath are worsening then you can continue to take 40 mg daily at home. 5.?? Continue to take albuterol and Advair for your COPD exacerbation. Post Discharge Care Diet: Cardiac diet Activity: Ambulate with assistance ??3 times a day ??unless otherwise specified Code Status: ?? Full Resuscitation Discharge ?06/28/22 14:22:00 EST Home Health Face to Face *Denotes mandatory moreno ?? *I certify that this patient is under my care and that I or an allowed non- physician working with me had a face to face encounter with the patient on this date:??06/28/2022 15:07 ?? *The encounter with the patient was in whole, or in part, for the following medical condition, which is the primary diagnosis(es) for home health care:??Acute on chronic diastolic congestive heart failure (I50.33) Antiphospholipid antibody syndrome (D68.61) COPD exacerbation (J44.1) History of COPD (Z87.09) History of anxiety (Z86.59) History of hypertension (Z86.79) History of venous thromboembolism (Z86.718) NSTEMI (non-ST elevated myocardial infarction) (I21.4) NSTEMI, initial episode of care (I21.4) Pain in both lower legs (M79.661) Severe pulmonary hypertension (I27.20) Antiphospholipid syndrome Anxiety 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 Coronary artery disease Hypothyroidism Situational anxiety ? *Select the indications for the discipline/s that are being arranged for this patient. Nursing (select all that apply): [_] None [X] Medication management (reconciliation, teaching)?? [_] Chronic disease management?? [_] Wound care and treatment?? [_] Home safety evaluation [_] Administer SQ/IM/IV medications?? [_] Cath care?? [_] Drain care?? [_] Trach or GT care?? Other _ Occupation Therapy (select all that apply): [_] None [_] ADL Management [X] Fall prevention training [_] Energy conservation [_] Cognitive training Other _ Physical Therapy (select all that apply): [_] None [X] Functional mobility training [_] Home exercise program to strengthen [_] Increase ROM?? [_] Falls prevention training [_] Home maintenance program for chronic disease Other _ Speech Therapy (select all that apply): [_] None [_] Swallow evaluation and training [_] Speech and language training [_] Cognitive training to process, organize, and/or recall information Other _ ? *Homebound due to (select all that apply): [_] Inability to leave home without assistance/supervision [_] Inability to ambulate without assistance [_] Pain [X] Decreased strength and endurance [_] Unsteady gait [_] Severe SOB and fatigue [_] Impaired transfers [_] Inability to negotiate stairs [_] Limited weight bearing [_] Mental status change? *Physician Signature:??Robert gamble ?? *By signing this, I certify that I have personally evaluated the patient and agree with the findings and recommendations as documented above. ? F Results Discharge Labs BLOOD BANK Blood Type A Positive ()?? 06/20/2022 21:22 Antibody Screen Negative ()?? 06/20/2022 21:22 ?? BLOOD COUNT & DIFF WBC 14.1 k/mm3 (High)?? 06/28/2022 07:00 RBC 3.55 m/mm3 (Low)?? 06/28/2022 07:00 Hgb 11.3 Gm/dL (Low)?? 06/28/2022 07:00 Hct 35.7 % ()?? 06/28/2022 07:00 MCV 100.6 femtoliters (High)?? 06/28/2022 07:00 MCH 31.8 pg ()?? 06/28/2022 07:00 MCHC 31.7 g/dL (Low)?? 06/28/2022 07:00 Platelet Count 252 k/mm3 ()?? 06/28/2022 07:00 RDW-SD 53.8 femtoliters (High)?? 06/28/2022 07:00 MPV 10.8 femtoliters ()?? 06/28/2022 07:00 Nucleated RBC (Automated) 0.0 #/100 WBC'S ()?? 06/28/2022 07:00 Abs. NRBC 0.0 k/mm3 ()?? 06/28/2022 07:00 Abs. Neut 7.4 k/mm3 (High)?? 06/21/2022 04:28 Abs. Lymph 1.7 k/mm3 ()?? 06/21/2022 04:28 Abs. [place] 1.0 k/mm3 (High)?? 06/21/2022 04:28 Abs. Eo 0.2 k/mm3 ()?? 06/21/2022 04:28 Abs. Baso 0.1 k/mm3 ()?? 06/21/2022 04:28 Neut % 68.4 % ()?? 06/21/2022 04:28 Lymph % 15.3 % ()?? 06/21/2022 04:28 [place] % 8.7 % ()?? 06/21/2022 04:28 Eos % 1.9 % ()?? 06/21/2022 04:28 Baso % 0.7 % ()?? 06/21/2022 04:28 Imm Gran 5.0 % ()?? 06/21/2022 04:28 Abs. Imm Gran 0.6 k/mm3 ()?? 06/21/2022 04:28 ?? CARDIAC High Sensitivity Troponin (HSTnT) 26 ng/L (High)?? 06/21/2022 04:28 ? CHEM GENERAL Sodium 138 mmol/L ()?? 06/26/2022 07:06 Potassium 3.9 mmol/L ()?? 06/26/2022 07:06 Chloride 100 mmol/L ()?? 06/26/2022 07:06 Bicarbonate Level 30 mmol/L (High)?? 06/26/2022 07:06 Anion Gap 8 ()?? 06/26/2022 07:06 Glucose Level 83 mg/dL ()?? 06/26/2022 07:06 Hemoglobin A1C (Monitoring) 5.8 % (High)?? 06/21/2022 01:17 BUN 12 mg/dL ()?? 06/26/2022 07:06 Creatinine-Blood 0.9 mg/dL ()?? 06/26/2022 07:06 Estimated GFR Creatinine 66 ML/MIN/1.73 M2 ()?? 06/26/2022 07:06 Calcium 9.4 mg/dL ()?? 06/26/2022 07:06 Phosphorus 2.7 mg/dL ()?? 06/25/2022 07:04 Magnesium 2.5 mg/dL (High)?? 06/25/2022 07:04 Protein, Total 5.8 Gm/dL (Low)?? 06/21/2022 04:28 Albumin 3.5 Gm/dL ()?? 06/21/2022 04:28 AG Ratio 1.5 ()?? 06/21/2022 04:28 Alkaline Phosphatase 48 units/L ()?? 06/21/2022 04:28 AST (SGOT) 13 units/L ()?? 06/21/2022 04:28 ALT (SGPT) 14 units/L ()?? 06/21/2022 04:28 Bilirubin, Total 0.7 mg/dL ()?? 06/21/2022 04:28 ?? COAG INR 1.8 (High)?? 06/28/2022 07:00 Protime (PT) 17.7 seconds (High)?? 06/28/2022 07:00 APTT 40.6 seconds (High)?? 06/28/2022 07:00 ? LIPID STUDIES Cholesterol 193 mg/dL ()?? 06/21/2022 01:17 Triglycerides 64 mg/dL ()?? 06/21/2022 01:17 HDL Cholesterol 80 mg/dL ()?? 06/21/2022 01:17 LDL Cholesterol 100 mg/dL ()?? 06/21/2022 01:17 Non HDL Cholesterol 113 mg/dL ()?? 06/21/2022 01:17 ? MISC. CHEMISTRY Procalcitonin 0.04 ng/mL ()?? 06/28/2022 07:00 Hold Gel Top SPECIMEN DISCARDED AFTER 1 WEEK ()?? 06/28/2022 07:00 ?? VIROLOGY COVID-19 PCR Specimen Source NASAL ()?? 06/27/2022 10:39 COVID-19 PCR Result NEGATIVE ()?? 06/27/2022 10:39 ? Procedures(s) ?Cardiac Wallpaper Printer Helper Report ?? 06/21/2022 16:49??by Luis Eduardo Cadet MD ?Diagnostic Summary ??77-year-old female with complex medical issues who presented with COPD ??exacerbation and hemoptysis and was noted to have mild NSTEMI. Echo showed ??apical lateral hypokinesis and apical and apical septal akinesis. She has ??h/o chronic CP at rest for years. Given RWMA she was referred for diagnostic ??cardiac cath. Her pipeline inspector requested a right heart cath. ?? Hemodynamics: ??PCWP 16 mm Hg. Prominent V-waves. ??PA 66/24 (mean 38) ??RA 4. ??DPG 8 ??PVR 5.1 ??CI 2.7 ?? Mildly elevated systemic pressures 132/52 (92) ??LVEDP 5 mm Hg. ??There is no significant gradient on pullback across the aortic valve. ?? Coronary anatomy: ??40-50% mid LAD stenosis - similar to previous cath. ?? The patient is presenting with mild NSTEMI and apical RWMA. She had COPD ??exacerbation. Presentation is consistent with Takotsubo CM. ??She has severe pulmonary hypertension. 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 There is no severe MR or MS on the ??echo but mitral valve is rheumatic appearing in some views. I think the ??gradient is due to diastolic dysfunction and prominent V waves are due to ??atrial noncompliance. ?? Diagnostic Recommendations ??Aggressive secondary risk factor modification according to ATP III ??guidelines. ??c/w coumadin for APL syndrome with target INR 1.5-2.0. ??Given qualitative platelet dysfunction and bleeding risk (recent hemoptysis) ??I would avoid using baby aspirin. ??We will repeat echo in 2 months and reassess LVEF. ??Would relay the pulm hypertension data to her pipeline inspector. ?? ACC Diagnostic Recommendations: Medical therapy and/or counseling. ? Imaging(s) ?US Doppler Ext Lower Venous Bilat ?? 06/24/2022 18:43??by Andre Damon MD ? IMPRESSION: ?? No evidence of deep venous thrombosis. ? 35 ??minutes spent on discharge * Lucien YOU, Jen: PERFORM Event Display: Patient Education/Instruction Authored Date: [id number] Inpatient Adult Discharge Instructions [address] [address] Name: JOVANA WATSON : 1945 Visit: 06/20/2022 20:47:00 Current Date: 06/28/2022 15:46 Account: [id number] Inpatient Adult Discharge Instructions We would like [...] and their families. Surveys are administered by [employer] ?? If further treatment with your primary care physician or another doctor is recommended, it is important for you to keep the appointment. Call your primary care physician or return to the Emergency Department immediately if your condition worsens, fails to improve, or new symptoms develop. If you need to find a doctor, you can call [facility] for a referral at [phone] or toll free at [phone] or log in to [email or web address].. ?? You can view and manage your care through the patient portal or by using a health care alonso of your choosing. [employer] is a website that allows you to securely view your medical information including your hospital discharge summary, office visit summaries, medications and follow-up visits. You can also request appointments, renew medications, and request access to your medical information using a health care alonso of your choosing, or just ask a question. You can enroll at [email or web address] or register during your next office visit. You have been discharged from [facility], Patient Care Unit: M6. If you have any questions regarding these instructions after you leave, please call us and we will be happy to assist you. [facility] Your Care Team Attending Physician Rama STARK, Bobby Consulting Providers Tremayne STARK, Av Discharging Providers Savannah STARK, Robert Anne Reason for Admission NSTEMI Your Diagnosis NSTEMI (non-ST elevated myocardial infarction) Pain in both lower legs NSTEMI, initial episode of care Severe pulmonary hypertension Acute on chronic diastolic congestive heart failure Antiphospholipid antibody syndrome History of venous thromboembolism History of COPD COPD exacerbation History of hypertension History of anxiety Tests Performed Below is a partial list of the tests performed during your hospitalization. You may have had other tests and procedures not included in this list. Please discuss all test results with your provider. Basic Metabolic Panel BUN Calcium Level CBC CBC w/ Differential Comprehensive Metabolic Panel COVID-19 (NOVEL CORONAVIRUS) PCR Creatinine Electrolytes Glucose Level Hemoglobin A1C (Monitoring) HOLD GEL TUBE INR Lipid Panel Magnesium Level Mg Level Phosphorus Level PROCALCITONIN, SERUM PTT Troponin T, High Sensitivity Type and Screen US Doppler Ext Lower Venous Bilat XR Chest Portable Primary Care Provider Caitlyn Bowie MD Advance Directive Health Care Proxy on File Yes - Health Care Proxy Yes - MOLST No qualifying data available. Discharge Vitals Temperature: 98.1 DegF Height: 160 cm Pulse Rate: 77 bpm Weight: 59.5 kg Respiratory Rate: 17 br/min Body Mass Index: 23.24 kg/m2 Systolic Blood Pressure: 106 mm Hg Body surface area: 1.63 Diastolic Blood Pressure:??53 mm Hg??Low ?? Oxygen Saturation: 99 % ?? Studies Pending All tests and labs ordered during this hospital stay have been completed unless listed below. Please discuss all pending results with your provider listed above in these instructions. ?? Add On Lab Order CBC COVID-19 (2019 Novel Coronavirus) PCR INR PTT What to do next Instructions From Your Doctor 1. It was recommended for you to start mirtazapine for your anxiety/depression per psychiatrist.?? You have chosen to research on it and then start.?? I have sent the prescription to your [facility] 2.?? Please follow-up with your roving technician as well as primary care physician in 1 to 2 weeks of discharge. 3.?? You will be going home on your Coumadin 2 mg dose as discussed with you and Coumadin clinic.??Continue to check your INR at home every other day for the first week and discussed with Coumadin clinic for further management ??4.?? You have been on Lasix 20 mg at home.?? If you notice that your leg swelling and your shortness of breath are worsening then you can continue to take 40 mg daily at home. 5.?? Continue to take albuterol and Advair for your COPD exacerbation. Discharge Orders Diet:??Cardiac diet Activity:??Ambulate with assistance 3 times a day unless otherwise specified Code Status:?? Full Resuscitation Scheduled Follow-Up Appointments Monday 1:00 PM EST ?? With: Where: [facility] Radiology [facility] [address], [address] [place] [address]22 11:00 AM EST ?? With: Caitlyn Bowie MD Where: [facility] [address] [place] [address]- You Need to Schedule the Following Appointments Follow Up with??Luis Eduardo Cadet MD When??Within 1 to 2 weeks Where: [address] [place] [address] [place] [address]- Follow Up with??Caitlyn Bowie MD When??Within 1 to 2 weeks Where: ?? Discharge Medications JOVANA WATSON :1945 Visit Date:06/20/2022 Medications: Please continue your medications until treatment is completed or stopped by your provider. Medications not listed below should be discontinued. Discuss any questions related to medications with your provider. What How Much When Why Instructions Next Dose New Mirtazapine (mirtazapine 7.5 mg oral tablet) 1 tab(s) Oral Daily at Bedtime Duration: 30 Days Refills: 1 Pickup at [facility] Tonight at bedtime Changed Trazodone (traZODone 50 mg oral tablet) 1 tab(s) Oral Daily at Bedtime Dr. Kelly ?? Tonight at bedtime Unchanged Albuterol (albuterol 0.083% inhalation solution) 3 Milliliter Inhalation Every 6 hours as needed for for wheezing as needed Unchanged Albuterol (Ventolin HFA 108 mcg/ inh inhalation aerosol with adapter) 2 puff(s) Inhalation Every 6 hours as needed for Wheezing/Shortness of Breath as needed Unchanged Diazepam (diazepam 5 mg oral tablet) 1/2-1 tablet Oral Twice a day as needed for anxiety & sleep as needed Unchanged Docusate (docusate sodium 100 mg oral capsule) 1 capsule Oral Twice a day Tonight at bedtime Unchanged elderberry (elderberry oral liquid) 15 Milliliter Oral Daily continue home regimen Unchanged EPINEPHrine (EPINEPHrine 0.3 mg injectable solution) 0.3 Milligram Intramuscular Once as needed for Anaphylactic Reaction as needed Unchanged Ferrous Gluconate (ferrous gluconate 324 mg oral tablet) 1 tab(s) Oral Daily WITH BREAKFAST ?? continue home regimen Unchanged Fluticasone-Salmeterol (Advair HFA 230 mcg / 21 mcg) 2 puff(s) Inhalation Twice a day Tonight at bedtime Unchanged Furosemide (furosemide 20 mg oral tablet) 1 tab(s) Oral Daily as needed for leg swelling as needed for leg swelling Unchanged Furosemide (furosemide 20 mg oral tablet) 1 tab(s) Oral Daily Tomorrow morning Unchanged Lanolin-Mineral Oil Topical (lanolin-mineral oil topical lotion) See instructions USE TWICE DAILY ?? continue home regimen Unchanged levocetirizine (Xyzal 5 mg oral tablet) 1 tab(s) Oral Daily in PM allergies ?? continue home regimen Unchanged Levothyroxine (levothyroxine 25 mcg (0.025 mg) oral capsule) 1 capsule Oral Daily Monday through Monday ?? Tomorrow morning Unchanged Levothyroxine (levothyroxine 50 mcg (0.05 mg) oral capsule) 1 capsule Oral Daily Monday & Monday's ?? Monday morning Unchanged Meclizine (meclizine 25 mg oral tablet) See instructions can take ??extra 25mg for up to four per day ?? as needed Unchanged Metoprolol (Toprol XL 25 mg oral tablet, extended release) 1 tab(s) Oral Twice a day Tonight at bedtime Unchanged Montelukast (Singulair 10 mg oral tablet) 1 tab(s) Oral Daily in PM Dr. Kelly ?? Tonight at bedtime Unchanged Multivitamin (B-Complex SR) 1 tab(s) Oral Daily continue home regimen Unchanged Omeprazole (omeprazole 40 mg oral enteric coated capsule) 1 capsule Oral Daily as needed for as needed as needed Unchanged Rosuvastatin (rosuvastatin 10 mg oral tablet) 1 tab(s) Oral Monday, Monday and Monday Tomorrow morning Unchanged Warfarin (warfarin 1 mg oral tablet) See instructions Embolism take 1-2 ??tablets By Mouth Daily as directed by the anticoagulation clinic ?? 2 mg tonight at 6 PM Unchanged Warfarin (warfarin 1 mg oral tablet) 2 tab(s) Oral Daily (Jovana want's to test her blood today, changes with INR) ?? follow Coumadin Clinic instructions Pharmacy Information [id number]: [address], [place] [id number] [phone] ?? What How Much When Comments Stop Taking PredniSONE (predniSONE 10 mg oral tablet) See instructions 30 mg by mouth for 3 days 20 mg daily for 3 days 10 mg daily for 3 days 5 mg every day ?? Stop Taking PredniSONE (predniSONE 5 mg oral tablet) 1 tab(s) Oral Daily START ?? Stop Taking Senna (Senna 8.6 mg oral tablet) 2 tab(s) Oral Daily at Bedtime as needed for as needed for constipation Test Results Below is a partial list of the most recent Laboratory test results done prior to this discharge. You may have had other tests and procedures not included in this list. Please discuss all test resultswith your provider. Basic Metabolic Panel (06/26/2022) ???Sodium - 138 mmol/L???Potassium - 3.9 mmol/L???Chloride - 100 mmol/L???Bicarbonate Level - 30 mmol/L???Anion Gap - 8???Glucose Level - 83 mg/dL???BUN - 12 mg/dL???Creatinine-Blood - 0.9 mg/dL???Estimated GFR Creatinine - 66 ML/MIN/1.73 M2???Calcium - 9.4 mg/dL BUN (06/23/2022) ???BUN - 28 mg/dL Calcium Level (06/23/2022) ???Calcium - 9.3 mg/dL CBC (06/28/2022) ???WBC - 14.1 k/mm3???RBC - 3.55 m/mm3???Hgb - 11.3 Gm/dL???Hct - 35.7 %???MCV - 100.6 femtoliters???MCH - 31.8 pg???MCHC - 31.7 g/dL???Platelet Count - 252 k/mm3???RDW-SD - 53.8 femtoliters???MPV - 10.8 femtoliters???Nucleated RBC (Automated) - 0.0 #/100 WBC'S???Abs. NRBC - 0.0 k/mm3 CBC w/ Differential (06/21/2022) ???WBC - 10.9 k/mm3???RBC - 3.38 m/mm3???Hgb - 10.7 Gm/dL???Hct - 33.9 %???MCV - 100.3 femtoliters???MCH - 31.7 pg???MCHC - 31.6 g/dL???Platelet Count - 279 k/mm3???RDW-SD - 53.1 femtoliters???MPV - 10.7 femtoliters???Nucleated RBC (Automated) - 0.0 #/100 WBC'S???Abs. NRBC - 0.0 k/mm3???Abs. Neut -7.4 k/mm3???Abs. Lymph - 1.7 k/mm3???Abs. [place] - 1.0 k/mm3???Abs. Eo - 0.2 k/mm3???Abs. Baso - 0.1 k/mm3???Neut % - 68.4 %???Lymph % - 15.3 %???[place] % - 8.7 %???Eos % - 1.9 %???Baso % - 0.7 %???Imm Gran - 5.0 %???Abs. Imm Gran - 0.6 k/mm3 Comprehensive Metabolic Panel (06/21/2022) ???Sodium - 139 mmol/L???Potassium - 4.0 mmol/L???Chloride - 99 mmol/L???Bicarbonate Level - 32 mmol/L???Anion Gap - 8???Glucose Level - 95 mg/dL???BUN - 22 mg/dL???Creatinine-Blood - 0.8 mg/dL???Estimated GFR Creatinine - 76 ML/MIN/1.73 M2???Calcium - 9.9 mg/dL???Protein, Total - 5.8 Gm/dL???Albumi n - 3.5 Gm/dL???AG Ratio - 1.5???Alkaline Phosphatase - 48 units/L???AST (SGOT) - 13 units/L???ALT (SGPT) - 14 units/L???Bilirubin, Total - 0.7 mg/dL COVID-19 (NOVEL CORONAVIRUS) PCR (06/27/2022) ???COVID-19 PCR Specimen Source - NASAL???COVID-19 PCR Result - NEGATIVE Creatinine (06/23/2022) ???Creatinine-Blood - 1.1 mg/dL???Estimated GFR Creatinine - 54 ML/MIN/1.73 M2 Electrolytes (06/23/2022) ???Sodium - 136 mmol/L???Potassium - 4.4 mmol/L???Chloride - 97 mmol/L???Bicarbonate Level - 30 mmol/L???Anion Gap - 9 Glucose Level (06/23/2022) ???Glucose Level - 88 mg/dL Hemoglobin A1C (Monitoring) (06/21/2022) ???Hemoglobin A1C (Monitoring) - 5.8 % HOLD GEL TUBE (06/28/2022) ???Hold Gel Top - SPECIMEN DISCARDED AFTER 1 WEEK INR (06/28/2022) ???INR - 1.8???Protime (PT) - 17.7 seconds Lipid Panel (06/21/2022) ???Cholesterol - 193 mg/dL???Triglycerides - 64 mg/dL???HDL Cholesterol - 80 mg/dL???LDL Cholesterol - 100 mg/dL???Non HDL Cholesterol - 113 mg/dL Magnesium Level (06/25/2022) ???Magnesium - 2.5 mg/dL Mg Level (06/23/2022) ???Magnesium - 2.3 mg/dL Phosphorus Level (06/25/2022) ???Phosphorus - 2.7 mg/dL PROCALCITONIN, SERUM (06/28/2022) ???Procalcitonin - 0.04 ng/mL PTT (06/28/2022) ???APTT - 40.6 seconds Troponin T, High Sensitivity (06/21/2022) ???High Sensitivity Troponin (HSTnT) - 26 ng/L Type and Screen (06/20/2022) ???Blood Type - A Positive???Antibody Screen - Negative Allergies (NKA means No Known Allergies) Avelox Avocado Bee Stings Biaxin Contrast Dye Flagyl Gastrografin Levaquin??(Avocado) Mold Novocain Shrimp Voltaren Zithromax barium sulfate busPIRone??(Feeling of throat tightness, Headache, Dizziness) ciprofloxacin erythromycin gentamicin iodinated radiocontrast dyes ipratropium morphine penicillin sulfa drugs vancomycin Problems Active Problems??(33) Antiphospholipid syndrome?? Anxiety?? Bilateral lower extremity pain?? CHF - Congestive heart failure?? 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?? Coronary artery disease?? Diverticulitis?? Epigastric pain?? MIS (generalized anxiety disorder)?? Gastroesophageal reflux disease?? Hematoma of right lower leg?? Heterozygous Factor V Leiden mutation?? HTN (hypertension)?? Hyperlipidemia?? Hypothyroidism?? Hypoxia?? Insomnia?? LLQ pain?? Mitral valve prolapse?? Muscle ache?? Obstructive sleep apnea treated with BiPAP?? Occipital headache?? Optic neuritis?? Osteoporosis?? Platelet function defect?? Productive cough?? Radiation pneumonitis?? Respiratory failure with hypoxia?? Situational anxiety?? Superficial thrombophlebitis?? SVT (supraventricular tachycardia)?? Tremor of both hands?? VTE (venous thromboembolism)?? Education Materials Below is the list of Educational Leaflet Providered with your Discharge Instructions. Discharge Instructions for Heart Failure?? Takotsubo Cardiomyopathy (Broken Heart Syndrome)?? Mirtazapine Oral Tablet?? Valuables and Belongings I fully understand and agree that [facility] accepts no responsibility for all my personal [...] to send valuables and belongings home. ?? Date for Pt to Sign Valuables/Belongings: 06/20/22 21:53:00 ?? Other Discharge Information ?? Wound Assessment?? Wound Assessment?? Wound Location I: Buttocks, Right Wound Type I: Other: healing herpes lesion ?? Case Management Discharge Plan?? Discharge Plan?? Discharge Agency Information?? Discharge Level of Care at Discharge: Homehealth/VNA Name of Agency #1: [facility] Discharge Rx Program: Discharge Prescription Program Service Categories #1: Occupational Therapy, Physical Therapy, Half-Way Discharge VNA/Hospice/Home Care: [facility] Comments #1: A return referral has been made to [facility] to resume nursing, PT and OT services at home. ??The agency will contact you to set up a visit. ??Their contact # is [phone]. ?? Pulmonary Rehab Status?? Pulmonary Rehab Discharge Status?? CPAP/BiPAP Mask Type: Full CPAP/BiPAP Mask Size: Medium Respiratory Rate: 17 br/min ? Cardiac Rehab Assessment?? Cardiac Rehab Inpatient Assessment?? Comments-Education: [place] EDUCATION Comments-Smoking Cessation: NA Comments-Exercise Activity: AMB MARYBETH Comments-Nutrition: PER RD Comments-Lipids: PENDING Comments-Other plan of care: PT DECLINES Common Emergency Awareness Tips IS IT A [...] are strongly encouraged to quit. Please call [facility] [employer] Link at [phone] or [phone]) or log in to [email or web address] for referrals to smoking cessation programs. ?? The National Suicide Prevention Hotline is available 30/01 if you or someone you know needs to find a reason to keep living. By calling 6-865-670-[employer] (2934) you'll be connected to a skilled, trained counselor at a crisis center in your area. INPATIENT DISCHARGE INSTRUCTIONS SIGNATURE PAGE JOVANA WATSON Location:[facility] Registration Date and Time:06/20/2022 20:47 EST Primary Care Physician: Azeb STARK, Caitlyn Thompson, I JOVANA WATSON, have received the above patient education materials/instructions and have verbalized understanding. If ambulance or transport services are being used I further acknowledge being given a choice of service. ?? If you need to contact me, please call me at this number: . 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 [address] Discharge Instructions for Heart Failure The heart is a muscle that pumps oxygen-rich blood to all parts of the body. When you have heart failure, the heart is not able to pump as well as it should. Blood and fluid may back up into the lungs. Some parts of the body don???t get enough oxygen-rich blood to work normally. These problems leadto the symptoms of heart failure. Heart failure can occur because of an injury to the heart or fromnatural processes.??You can control symptoms of heart failure with some lifestyle changes and by following your doctor's advice. Activity Ask your healthcare provider about an exercise program. Simple activities such as walking or gardening can help. Exercising most days of the week can make you feel better. Don't be discouraged if your progress is slow at first. Rest as needed. Stop activity if you get symptoms such as chest pain, lightheadedness, or shortness of breath. Find activities that you enjoy. Examples might be brisk walking, dancing, swimming, and gardening. These will help you stay active and strengthen your heart. Ask your healthcare provider about cardiac rehab. This is a program that helps you to exercise safely. ?? Diet Follow a heart healthy diet. And make sure to limit the salt (sodium) in your diet. Salt causes your body to hold water. This makes your heart work harder because there is more fluid for the heart topump. Limit your salt as directed by your healthcare provider by doing the following: ??? Limit canned, dried, packaged, and fast foods. ??? Don't add salt to your food. ??? Season foods with herbs instead of salt. ??? Watch how much liquids you drink. Drinking too much can make heart failure worse. Talk with your healthcare provider about how much you should drink each day. ??? Limit the amount of alcohol you drink. It may harm your heart. Women should have no more than 1 drink a day. Men should have no more than 2 a day. ??? Ask that your meals have no added salt when you eat out. ??? Talk with your healthcare provider before using salt substitutes. They often have potassium in them. Thismay not be good for your health. This will depend on how well your kidneys are working and what medicines you???re taking. Some people need extra potassium. Others don???t. ?? Tobacco It's important to quit if you smoke. Smoking increases your chances of having a heart attack by harming the blood vessels that provide oxygen to your heart. This makes heart failure worse. Quitting smoking is the number one thing you can do to improve your health. Enroll in a stop-smoking program to improve your chances of success. Talk with your healthcare provider??about medicines or nicotine replacement therapy. Also ask your healthcare provider about smoking cessation support groups. ?? Medicine Take your medicines exactly as prescribed. Learn the names and purpose of each of your medicines. Keep an accurate medicine list and current dosages with you at all times. Don't skip doses. If you miss a dose of your medicine, take it as soon as you remember. If you miss a dose and??it's almost time for your next dose, just wait and take your next dose at the normal time. Don't take a double dose. If you are unsure, call your doctor's office. Make sure not to mix up your medicines or forget what you've taken the same day. Refill your prescriptions before you run out of medicine. Talk with your healthcare provider if you have trouble with the cost of your medicines. ?? Weight monitoring Weigh yourself every day. A sudden weight gain can mean your heart failure is getting worse. Weigh yourself at the same time of day and in the same kind of clothes. Ideally, weigh yourself first thing in the morning after you empty your bladder, but before you eat breakfast. Your healthcare provider will show you how to track your weight. They will also tell you when you should call if you have asudden, unexpected increase in your weight. In general, your healthcare provider may ask you to report if your weight goes up by more than 2 pounds in 1 day,?? 5 pounds in 1 week, or whatever weight gain you were told by your doctor. This is asign that you are retaining more fluid than you should be. Clues to weight gain include checking your ankles for swelling, or noticing you are short of breath when you lie down. ?? Follow-up care Have a follow-up appointment as instructed. Depending on the type and severity of heart failure youhave, you may need follow-within 7 days from hospital discharge. Keep appointments for checkups andlab tests that are needed to check your medicines and condition. Recognize that your health and even survival depend on you following your provider's advice. ?? Symptoms Heart failure can cause a variety of symptoms. They include: ??? Shortness of breath ??? Trouble breathing at night, especially when you lie down ??? Swelling in the legs and feet or in the belly (abdomen) ??? Becoming easily tired ??? Irregular or rapid heartbeat ??? Weakness or lightheadedness ??? Swelling of the neck veins It's important to know what to do if symptoms get worse or if you develop signs of worsening heart failure. Keep track of how you feel each day. Report any changes to your healthcare provider. ?? When to call your healthcare provider Call your healthcare provider right away if you have any of these signs of worsening heart failure:??? Sudden weight gain. This means more than 2 pounds in 1 day or 5??pounds in 1 week, or whatever weight gain you were told to report by your doctor. ??? Trouble breathing not related to being active ??? New or increased swelling of your legs or ankles ??? Swelling or pain in your abdomen ??? Breathing trouble at night. This means waking up short of breath or needing more pillows to breathe. ???Frequent coughing that doesn't go away ??? Feeling much more tired than usual ?? Call 911 Call 911 right away if you have: ??? Severe shortness of breath, such that you can't catch your breath even while??resting ??? Severe chest pain that does not resolve with rest or nitroglycerin ??? [place], foamy mucus with cough and shortness of breath ??? An ongoing rapid or irregular heartbeat ??? Passing out or fainting ??? Stroke symptoms such as sudden numbness or weakness on one side of your face, arm, or leg or sudden confusion, trouble speaking or vision changes ?? Last Reviewed Date: 2021 ?? [employer]. All rights reserved. This information is not intended as a substitute for professional medical care. Always follow your healthcare professional's instructions. ?? * Jen Mcgraw RN: PERFORM Event Display: Patient Education Leaflets Authored Date: [id number] Takotsubo Cardiomyopathy (Broken Heart Syndrome) ?? [address]1942 Takotsubo Cardiomyopathy (Broken Heart Syndrome) Takotsubo cardiomyopathy (TCM) is a type of heart condition also known as stress-induced cardiomyopathy or broken heart syndrome. It causes sudden chest pain. The symptoms of TCM can be like those ofa heart attack. The name takotsubo comes from the appearance of the heart muscle on an echocardiogram. The main pumping chamber becomes dilated and the muscle does not move while the base becomes constricted. This shape resembles an old Guamanian octopus trap that has the same name. With TCM, blood flow to part of the heart is briefly blocked. This might happen if the coronary arteries have a temporary spasm. It might also occur if the smaller blood vessels of the heart don???t get enough blood. Although the symptoms of TCM may feel like a heart attack, the two conditions are different. During a heart attack, a major blockage in one of the coronary arteries from a blood clotor plaque buildup triggers symptoms. In TCM, the blockage is transient. TCM is not very common. It most often occurs in older women. But it can happen to men and younger women. What causes Takotsubo cardiomyopathy? Experts are still trying to understand what causes TCM. Some think it might result from a brief spasm of the coronary arteries. Others think reduced blood flow to the smaller blood vessels of the heart may trigger it. Excess release of stress hormones such as adrenaline may also play a role. Experts do know that intense emotions such as grief, fear, or sadness may trigger TCM. That???s whythe condition is sometimes called broken heart syndrome. A sudden illness may also precede it. TCM might be triggered by: ??? of a loved one ??? Domestic abuse ??? Natural disasters ??? Major financial loss ??? Asthma flare ??? Surgery ??? Chemotherapy ??? Accidental overdose of adrenaline ??? Adrenaline-producingtumor In some cases, experts can???t pinpoint a clear cause for TCM. You may have a higher risk for TCM if one of your family members had it. Having an anxiety disorderalso seems to raise a person???s risk. Traditional risk factors for a heart attack, such as smoking, don't make you more prone to TCM. ?? What are the symptoms of Takotsubo cardiomyopathy? Symptoms of TCM may seem like a heart attack. During an episode, you might have: ??? Sudden, strongchest pain (the most common symptom) ??? Shortness of breath ??? Fainting, dizziness, or lightheadedness ??? Neck or left arm pain ??? Pale appearance ??? Sudden, severe fatigue ??? Sweating ?? How is Takotsubo cardiomyopathy treated? Since TCM may mimic an acute heart attack, it may be treated like a heart attack. This may include giving aspirin, nitroglycerin, blood thinners, and even having heart procedures to look at blood flow in the heart arteries. Part of the diagnosis for symptoms may include an echocardiogram or ultrasound of your heart and a coronary angiogram to make sure you don't have a blocked coronary artery. Blood samples will be checked to evaluate the stress on your heart. You may need to stay in the ICU (intensive care unit) for at least 24 hours. Treatment might include: ??? Oxygen therapy to increase oxygen in your blood ??? IV (intravenous) fluids if your healthcare provider thinks you are dehydrated ??? Beta-karine medicines to terrazzo worker helper heart recovery ??? Angiotensin converting enzyme (MARIN) inhibitor medicines to aid heart recovery ??? Blood-thinner medicines (anticoagulants) to help prevent stroke ??? Psychological therapy to address problems such as anxietyand stress Most people fully recover from TCM in 1 to 4 weeks. But some don't, especially if they are older inage. Short-term risks of heart failure and abnormal heart rhythm can also pose danger to people with TCM, especially early on in the disease. ?? When to call 911 Call 911right away if you have sudden severe chest pain or other signs of a heart attack or TCM. Don't drive yourself to the hospital. ?? Last Reviewed Date: 2021 ?? [employer]. All rights reserved. This information is not intended as a substitute for professional medical care. Always follow your healthcare professional's instructions. ?? * Jen Mcgraw RN: PERFORM Event Display: Patient Education Leaflets Authored Date: [id number] Mirtazapine Oral Tablet ?? [id number] Mirtazapine Oral Tablet Brands: Remeron Uses This medicine is used for the following purposes: ??? depression ??? muscle aches ??? post-traumatic stress disorder ?? Instructions This medicine may be taken with or without food. It is very important that you take the medicine at about the same time every day. It will work bestif you do this. Keep the medicine at room temperature. Avoid heat and direct light. It may take several weeks for this medicine to fully work. It is important that you keep taking each dose of this medicine on time even if you are feeling well. If you forget to take a dose on time, take it as soon as you remember. If it is almost time for thenext dose, do not take the missed dose. Return to your normal dosing schedule. Do not take 2 doses of this medicine at one time. Tell your doctor and pharmacist about all your medicines. Include prescription and hubj-qoo-jcudzhgtlkcvqtbs, vitamins, and herbal medicines. Do not suddenly stop taking this medicine. Check with your doctor before stopping. ?? Cautions Tell your doctor and pharmacist if you ever had an allergic reaction to a medicine. Do not use the medication any more than instructed. This medicine may cause dizziness or fainting, especially after exercising or in hot weather. Be very careful when standing or sitting up quickly. Your ability to stay alert or to react quickly may be impaired by this medicine. Do not operate machinery or drive while on this medicine. Please check with your doctor before drinking alcohol while on this medicine. Family should check on the patient often. Call the doctor if patient becomes more depressed, has thoughts of suicide, or shows changes in behavior. Tell the doctor or pharmacist if you are , planning to be , or . Do not start or stop any other medicines without first speaking to your doctor or pharmacist. Do not share this medicine with anyone who has not been prescribed this medicine. Some patients have serious side effects from this medicine. Ask your pharmacist to show you the information from the Food and Drug Administration (FDA) and discuss it with you. ?? Side Effects The following is a list of some common side effects from this medicine. Please speak with your doctor about what you should do if you experience these or other side effects. ??? constipation ??? dizziness or drowsiness ??? dry mouth ??? weight gain Call your doctor or get medical help right away if you notice any of these more serious side effects: ??? agitated feeling or trouble sleeping ??? confusion ??? swelling of the legs, feet, and hands ??? pain in the eye ??? fainting ??? fever ??? swelling in the neck or throat ??? hallucinations (unusual thoughts, seeing or hearing things that are not real) ??? fast or irregular heart beats ??? moodchanges ??? muscle aches, spasms or abnormal movements ??? dilation of the pupils ??? shakiness ??? blurring or changes of vision A few people may have an allergic reaction to this medicine. Symptoms can include difficulty breathing, skin rash, itching, swelling, or severe dizziness. If you notice any of these symptoms, seek medical help quickly. ?? Extra Please speak with your doctor, nurse, or pharmacist if you have any questions about this medicine. ?? [email or web address] IMPORTANT NOTE: This document tells you briefly how to take your medicine, but it does not tell youall there is to know about it. Your doctor or pharmacist may give you other documents about your medicine. Please talk to them if you have any questions. Always follow their advice. There is a more complete description of this medicine available in Latvian. Scan this code on your smartphone or tablet or use the web address below. You can also ask your pharmacist for a printout. If you have any questions, please ask your pharmacist. The display and use of this drug information is subject to Terms of Use. Copyright(c) 2021 [employer]. ?? [employer]. All rights reserved. This information is not intended as a substitute for professional medical care. Always follow your healthcare professional's instructions. ?? * Event Display: Hemodynamic Procedure Report Authored Date: * Event Display: Cardiac Rhythm Strips Authored Date: Cardiac catheterization study * Event Display: Cardiac Wallpaper Printer Helper Report Authored Date: [id number] Cardiac Diagnostic Report Demographics Patient Name SHIRLEY LOO Gender Female [employer] Room Number M612 Height 62.99 inches Date of 1945 Weight 131.18 pounds Age 77 year(s) BSA 1.62 m2 Accession Number [id number] BMI 23.24 kg/m2 Referring Physician Luis Eduardo Cadet MD Date of Study 06/21/2022 Azeb Anne MD Performing Physician Luis Eduardo Cadet MD Fellow [facility] Interventional Physician Procedure Procedure Type Diagnostic procedure:Coronary Angiography, RHC, LHC ACC Diagnostic Catheterization Status:Urgent Indications Indications: NSTEMI. Current Diagnosis:NSTEMI. Clinical History Clinical Evaluation Leading to Procedure - The patient's CAD presentation was assessed as: Symptom unlikely to be ischemic. - Anti-anginal medications were prescribed during the past two weeks. The medication is: Beta Blockers. [facility] Risk Factors The patient risk factors include:treated and uncontrolled hypercholesterolemia, treated and uncontrolled hypertension, chronic lung disease, last creatinine: 0.8 mg/dl, creatinine clearance: 53.56 ml/min and dyslipidemia. Additional Clinical History:77 yo female with a history of COPD and pulmonary fibrosis secondary to chest radiation for lung CA, home O2, presented to [facility] with respiratory distress, cough with hemoptysis on June 14. Treated for COPD exacerbation and pneumonia. Echo showed new wall motion abnormalities. Diagnostic cardiac catheterization in 2020 showed mild LAD disease. PMH: Antiphospholipid syndrome on chronic warfarin, DVT/PE, lung CA s/p chemotherapy and radiation, KANDY -Bi Pap. Right and left heart catheterization requested. Procedure Data Procedure Date Date: 12/13/2022Start: 16:49End: 17:58 The procedure was explained in detail to the patient. Risks, complications and alternative treatments were reviewed. Written consent was obtained. Entry Locations - Retrograde Percutaneous access was performed through the Right Radial artery (Primary location). A 6 Fr sheath was inserted. Hemostasis was successfully obtained using Prelude Sync EZ. - Antegrade Percutaneous access was performed through the Right Femoral vein. A 4 Fr sheath was inserted. This was exchanged for a 5 Fr sheath. Hemostasis was successfully obtained using Manual Compression. Venous access obtained. Procedure Medications - Versed (Midazolam) I.V. 1 mg. - Fentanyl I.V. 50 mcg. - Benadryl I.V. 25 mg. - Lidocaine 2% S.C. Right Wrist 4 ml. - Versed (Midazolam) I.V. 1 mg. - Fentanyl I.V. 50 mcg. - Lidocaine 2% S.C. Right groin 4 ml. - Versed (Midazolam) I.V. 1 mg. - Fentanyl I.V. 50 mcg. - Nitroglycerin I.A. 200 mcg. - Heparin I.V. 2500 units. Sedation: My intra-service moderate sedation time was: from 165 to 175. Refer to procedural log for detailed chronological information. Contrast Material - Omnipaque 30 ml Diagnostic Catheters - [id number] BALLOON WEDGE PRESSURE CATHETERwas used for: Right heart catheterization. - A5F JR4 INFINITI CATHETERwas used for: Left heart catheterization. - A5F JR4 INFINITI CATHETERwas used for: Right coronary angiography. - A5F JL 3.5 DXTERITY DIAGNOSTIC CATHETERwas used for: Left coronary angiography. Fluoroscopy Time: Diagnostic: 7:34 minutes. Total: 7:34 minutes. Fluoroscopy Dose: Diagnostic: 383 mGy. Total: 383 mGy. Dose Area Product:Diagnostic: 75425 mGy/cm2. Total: 63260 mGy/cm2. Dose Area Product:Diagnostic: 3048.8 ??Gy/m2. Total: 3048.8 ??Gy/m2. Procedure Narrative We could not access the cephalic or basilic veins. We placed a 5 Fr sheath in the right CFV using micropuncture and US. We performed RHC. We accessed the RRA using a 6 Fr slender sheath. We crossed into LV and recorded LVEDP. Diagnostic angio using JR4 and JL3.5. Hemostasis with TR band and manual compression at the venous site. Angiographic Findings Cardiac Arteries and Lesion Findings LMCA: Separate ostia. LAD: Mid LAD 40-50% disease (unchanged). LCx: Mild luminal irregularities (<30%). RCA: Normal. Hemodynamics Condition: Rest O2 Consumption: Estimated: 167.51Heart Rate: 105 bpm Oxygen Saturation +--------+-----+----+ +----+ + !Location!pCO2 !pO2 !% Saturation!Hgb !O2 Content! +--------+-----+----+ +----+ + !PA ! ! !68.5 !10.5! ! +--------+-----+----+ +----+ + !AO ! ! !95.7 !10.5! ! +--------+-----+----+ +----+ + Pressures (mmHg) +-----+ + !Site !Pressure ! +-----+ + !PA !73/22 (43) ! +-----+ + !PCW ! () ! +-----+ + !PCW ! (14) ! +-----+ + !RV !49/-4 ,6 ! +-----+ + !RA !7/6 (4) ! +-----+ + !LV !156/-1 ,5 ! +-----+ + !AO !132/52 (92)! +-----+ + !LV !137/-1 ,2 ! +-----+ + Cardiac Output +------+ + +-------+ !Method!CO (l/min)!CI (l/min/m2)!SV (ml)! +------+ + +-------+ !Flo !4.31 !2.7 !40.98 ! +------+ + +-------+ Valve Gradients and Areas +------+----+----+----+-----+-----+------+ !Valve !Peak!Mean!Area!Index!Flow !Source! +------+----+----+----+-----+-----+------+ !Aortic!5 !13 !1 !0.62 !160.4!Flo ! +------+----+----+----+-----+-----+------+ !Aortic!5 !13 ! ! ! ! ! +------+----+----+----+-----+-----+------+ Vascular Resistance (dynes x sec x cm-5) +---------+-----+-----+-----+----+---------+-------+ !CO method!TSVR !SVR !TPVR !PVR !TPVR/TSVR!PVR/SVR! +---------+-----+-----+-----+----+---------+-------+ !Flo !21.41!20.41!10.03!6.74!0.47 !0.33 ! +---------+-----+-----+-----+----+---------+-------+ !Qp or Qs !21.41!20.41! ! ! ! ! +---------+-----+-----+-----+----+---------+-------+ Shunts Oxygen Values O2 Capacity 145.52 O2 Consumption 167.51 Flows (l/min) Qs 4.31 Interventional Procedure Conclusions Diagnostic Summary 77-year-old female with complex medical issues who presented with COPD exacerbation and hemoptysis and was noted to have mild NSTEMI. Echo showed apical lateral hypokinesis and apical and apical septal akinesis. She has h/o chronic CP at rest for years. Given RWMA she was referred for diagnostic cardiac cath. Her pipeline inspector requested a right heart cath. Hemodynamics: PCWP 16 mm Hg. Prominent V-waves. PA 66/24 (mean 38) RA 4. DPG 8 PVR 5.1 CI 2.7 Mildly elevated systemic pressures 132/52 (92) LVEDP 5 mm Hg. There is no significant gradient on pullback across the aortic valve. Coronary anatomy: 40-50% mid LAD stenosis - similar to previous cath. The patient is presenting with mild NSTEMI and apical RWMA. She had COPD exacerbation. Presentation is consistent with Takotsubo CM. She has severe pulmonary hypertension. 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 There is no severe MR or MS on the echo but mitral valve is rheumatic appearing in some views. I think the gradient is due to diastolic dysfunction and prominent V waves are due to atrial noncompliance. Diagnostic Recommendations Aggressive secondary risk factor modification according to ATP III guidelines. c/w coumadin for APL syndrome with target INR 1.5-2.0. Given qualitative platelet dysfunction and bleeding risk (recent hemoptysis) I would avoid using baby aspirin. We will repeat echo in 2 months and reassess LVEF. Would relay the pulm hypertension data to her pipeline inspector. ACC Diagnostic Recommendations: Medical therapy and/or counseling. Complications:None. Signatures * Event Display: Cardiac Wallpaper Printer Helper Report Authored Date: [id number] Consult note * Av Maritn MD: MODIFY Av Martin MD: MODIFYDARLYN MD, Stef Ambrosio: PERFORM Event Display: Consult Authored Date: [id number] Patient: ??JOVANA WATSON ? Age:??77 Years?Sex:??Female?:??1945?? HPI: ?? 77-year-old pleasant female patient with history of COPD/KANDY???on BiPAP nightly and home O2 inhalation as needed???2 L, pulmonary hypertension, antiphospholipid antibody syndrome with history of PE/DVT???on chronic warfarin???goal of INR 1.5-2 due to history of platelet dysfunction, stage IIIa lungcancer status post left lower lobe lobectomy and neoadjuvant chemoradiation, radiation pulmonary fibrosis, nonobstructive CAD status post NSTEMI, heart failure with preserved ejection fraction, hypothyroidism, hypogammaglobulinemia, recent admission for influenza A with COPD exacerbation at [facility]-she was recently admitted at [facility] on June 14??for COPD extubation and foundto have NSTEMI. ? Patient with heart cath with mild CAD w/o stentable lesion, had right heart cath concerning for pulmonary HTN and takotsubo.?? Pulmonary team consulted. ? ROS: ?? 14 point review of system completed and is negative except as stated above in HPI ?? Physical Exam: ?? GENERAL: Alert, in no distress. HEENT:?? PERRL, EOMI, Oropharynx clear, mucous membranes moist,??trachea midline, neck supple? LUNGS: Lungs decreased at left base, fine rales b/l HEART: regular rhyme and rate. No obvious??murmurs. ABDOMEN: Abdomen soft, non-tender, non-distended.?? NEURO: Face symmetric, moves all extremities spontaneously. Sensation intact bilaterally. SKIN: bruising in arms b/l, extensive ?? A/P: ?? Patient with pulmonary HTN - etiology unclear but likely also multifactorial - possibly 2/2 to??mitral valve disease, likely rheumatic, diastolic dysfunction and component of group 1 pulmonary HTN - pt is saturating well on room air??without respiratory distress and is being followed closely by her pipeline inspector, Dr. Kelly.?? Pt also with b/l pleural effusion with left worse than right. ?? Plan ?? -Hold heparin drip for thoracentesis in AM -Bipap at night 12/8 -IV diuresis?? -Patient will need further workup to determine etiology of pulmonary hypertension but this can be arranged as outpatient by her pipeline inspector I have reviewed recent??vital signs??and??all relevant labs, imaging and consult notes.? I have discussed this plan with my Attending, Dr. Martin ?? Stef Humphries MD Critical Care fellow ?? * Tremayne STARK, [facility]: PERFORM Event Display: Consult Authored Date: Patient seen, examined, investigative data reviewed and plan of care discussed with Dr. Humphries. I agree with DrMonalisa??Yandel's history, exam findings and plan of care as documented.??77/F non smoker with SOBsince when she was young. She follows closely with Dr. Kelly in [facility]. She had had prior stage III left lung cancer s/p resection and chemoradiation in 2008. She also has a diagnosis of pul HTN and reports having evaluation in PAH center in [place] several years ago for what was mild PH according to her. She has had repeated hospitalization for her breathing issues and typically is treated for COPD exacerbation or CHF. She had intermittent hemoptysis and also carries a diagnosis ofantiphospholipid syndrome. She has had one bout of PE in past, she is on coumadin supervisor lime and sees Dr Hogan in Hematology clinic. She was hospitalized last week in [place] and was diagnosed with NSTEMI and sent to [facility] or LHC and RHC. LHC showed mid LAD lesion, stable from before, stress induced cardiomyopathy. RHC noted severe pul HTN mean PA 38, Wedge 16, TPPG 22, PVR 5.2 CI 2.7, LVEDP 5. There was prominent V wave although no notable MR was noted. Prior echo in September this year reports mild MR, She has h/o rheumatic fever as child. The same echo did not show pul HTN or RV dilatation. CT chest in recent months have shown small bilateral pleural effusion, areas of GGO in lungs and someinterlobular septal thickening. She has feature of left hear failure on CT chest but her severe pulHTN in RHC and high transpulmonary gradient is concerning for precapillary pulmonary HTN as well. Additionally given pleural effusion, and interlobular septal thickening, PVOD is also on differential although her wedge is somewhat high and prior report of MR also makes group II PH likely. Her priorPFT do no show obstruction, for her KANDY she is on BIPAP 06/16. Recommend diuresis while inpatient and back to her home regimen of lasix when she leaves. Plan for thoracentesis in am, stop heparin gtt at 7 am. Outpatient follow up with primary pipeline inspector Dr. Kelly, anticipate likely needing repeat echo and possibly RHC again when her current left sided cardiomyopathy improves to determine her baseline PA hemodynamics. ?? CC: Henry Kelly MD [place] [facility] History and physical note * Event Display: History and Physical Hospital Authored Date: * Event Display: History and Physical Hospital Authored Date: Admission evaluation note * Keisha STARK, [facility]: MODIFY, MODIFY, PERFORM Event Display: Admission Note Authored Date: Patient: ??JOVANA WATSON ? Age:??77 Years?Sex:??Female?:??1945?? Chief Complaint/Reason for Consultation Transfer for cardiac cath from [facility] History of Present Illness 77-year-old pleasant female patient with history of COPD/KANDY???on BiPAP nightly and home O2 inhalation as needed???2 L, pulmonary hypertension, antiphospholipid antibody syndrome with history of PE/DVT???on chronic warfarin???goal of INR 1.5-2 due to history of platelet dysfunction, stage IIIa lungcancer status post left lower lobe lobectomy and neoadjuvant chemoradiation, radiation pulmonary fibrosis, nonobstructive CAD status post NSTEMI, heart failure with preserved ejection fraction, hypothyroidism, hypogammaglobulinemia, recent admission for influenza A with COPD exacerbation at [facility].?? On prednisone 5 mg daily chronically who also recently completed a course of doxycycline.?? Patient's pipeline inspector is Dr. Vamsi Kelly.?? She presented to [facility] on June 14 with acute respiratory failure and was saturating 93% on room air.?? She was treated for COPD extubation and pneumonia.?? She completed courses of antibiotics.?? Patient was diagnosed with NSTEMI and was started on heparin drip but after cardiology recommendation heparin drip was discontinued.?? Patient's INR this morning was 1.3 but Coumadin was held in anticipation of cardiac cath.?? Patient is now on 2 L nasal cannula.?? Patient had echocardiogram performed at outside facility.?? Patient has allergy to iodinated contrast.?? For past few days patient has been having scant volume he moptysis a few times a day.?? Patient's case was discussed with pipeline inspector who recommended both left and right heart cath.?? Patient had lactic acidosis which resolved, COPD exacerbation resolved.?? Patient per cardiac cath and discussion with cardiology- Dr. Velazquez.?? Patient is alert awake and oriented x4.?? Appears anxious but denies any other issues.?? Overall respiratory status improved significantly and she has very mild chest tightness.?? She is alert awake and oriented x4.?? Wants to be full code.?? Requesting hematology to be notified. ?? On arrival to [facility], noted to have temperature of 97.8, pulse rate 87, blood pressure 121/64 maintaining saturation of 100% on 2 L nasal cannula, requested patient's nurse to wean down as tolerated.?? Labs ordered. Review of Systems General ROS:??negative for chills or fever, noted fatigue, no night sweats, no unexpained weight loss or weight gain Psychological ROS:??Positive for anxiety,, no suicidal thoughts, appropriate insight into situation, mood appears appropriate for situation ENT ROS:??negative for nasal congestion, no sinus drainage, no nosebleeding, no sore throat, no dysphagia, no ear pain Hematological and Lymphatic ROS:??Easy bruising and history of VTE Endocrine ROS:??negative for polyuria/polydipsia?? Respiratory ROS:??Positive for cough and shortness of breath, no wheezing, positive for scant intermittent hemoptysis Cardiovascular ROS:??Positive for mild chest tightness,??positive for dyspnea on exertion, ??No edema, no palpitations, no history of loss of consciousness, no orthopnea, no paroxysmal nocturnal dyspnea?? Gastrointestinal ROS:??negative for reflux, no abdominal pain, no black or bloody stools- also no history of constipation, diarrhea, heartburn or hematemesis Genito-Urinary ROS:??no dysuria, no trouble voiding, or hematuria Musculoskeletal ROS:??negative for worsening ongoing back pain, no worsening or chronic neck pain, no new or worsening joint pain, no calf swelling Neurological ROS:??no symptoms of confusion, no dizziness, no gait disturbance, no impaired coordination/balance, no memory loss, no history of seizures, no history of speech problems, no tremors , no visual changes. Objective Measurements?? Height: 160 cm (06/20/22) ?? Vital Signs?? Temperature: 97.8 DegF (06/20/22:01:00) Temperature Route: Oral (06/20/22:01:00) Pulse Rate: 87 bpm (06/20/22:01:00) Respiratory Rate: 18 br/min (06/20/22:01:00) Systolic Blood Pressure: 121 mm Hg (06/20/22::00) Diastolic Blood Pressure: 64 mm Hg (06/20/22::00) Blood pressure sites: Arm, left (06/20/22::00) Mean Arterial Pressure: 83 mm Hg (06/20/22::00) Pulse Pressure: 57 mm Hg (06/20/22::00) Oxygen Saturation: 100 % (06/20/22::00) Mode of Delivery (Oxygen): Room air (06/20/22::00) Early Warning Score: 2 (06/20/22:02:23) ? Pain Scores?? No qualifying data available. ? Intake/Output? No Data Available ? Physical Exam ?? General appearance- alert, cooperative, no distress, appears stated age, oriented to time, placeand person,??anxious appearing Head- Normocephalic, without obvious abnormality, atraumatic Eyes-conjunctivae/corneas clear. PERRL, EOM's intact. Nose- Nares normal. Septum midline. Mucosa normal. No drainage or sinus tenderness. Throat-Lips, mucosa, and tongue normal. Neck- supple, symmetrical, trachea midline, no adenopathy, thyroid: not enlarged, symmetric, no tenderness/mass/nodules, no carotid bruit and no JVD Back- symmetric, no curvature. ROM normal. No CVA tenderness Lungs-??clear to auscultation bilaterally, no wheezing or accessory muscle use Chest wall- no tenderness, no skin rash or lesions or bruising, no crepitance Heart- regular rate and rhythm, S1, S2 normal, no?? click, rub or gallop Abdomen-??soft, non-tender. Bowel sounds normal. No masses,?? No organomegaly Extremities-multiple bruises noted???more prominent in upper extremities,??no cyanosis or edema, warm and well perfused. Pulses- 2+ and symmetric on dorsal pedal pulses, posterior tibial pulses, radial pulses Skin- Skin color, texture, turgor normal. No rashes or lesions Neurologic- Normal, nonfocal, no focal weakness, Assessment/Plan 77-year-old pleasant female patient with history of COPD/KANDY???on BiPAP nightly and home O2 inhalation as needed???2 L, pulmonary hypertension, antiphospholipid antibody syndrome with history of PE/DVT???on chronic warfarin???goal of INR 1.5-2 due to history of platelet dysfunction, stage IIIa lungcancer status post left lower lobe lobectomy and neoadjuvant chemoradiation, radiation pulmonary fibrosis, nonobstructive CAD status post NSTEMI, heart failure with preserved ejection fraction, hypothyroidism, hypogammaglobulinemia, recent admission for influenza A with COPD exacerbation at [facility]-she was recently admitted at [facility] on June 14??for COPD extubation and foundto have NSTEMI. ??Was transferred??in discussion with cardiology and pulmonary for further management to [facility]. ??Plan for cardiac cath in the afternoon tomorrow ?? NSTEMI History of??CAD/NSTEMI???nonocclusive cath Hyperlipidemia, history of allergy to iodinated contrast Based on cardiology recommendation???not on heparin drip.?? Coumadin held tonight for??cardiac cathin the morning.?? At request of cardiology, administering??40 mg of??prednisone tonight and in the morning??due to history of??allergy to??iodinated contrast Checking hemoglobin A1c, lipid profile Telemetry monitoring Continuous pulse ox monitoring Continue statin Trend troponin ?? History of antiphospholipid antibody syndrome History of VTE History of platelet dysfunction Patient [facility] Dr. Mills[facility]??as well as Dr. Hogan from [facility]. ??Requesting Dr. Caryn contreras to be notified. ??Will consult hematology Checking INR in the morning ?? COPD with exacerbation???resolved Recent treatment for pneumonia???completed antibiotics Continue DuoNeb standing and as needed No wheezing heard Continuous pulse ox Monitor respiratory status closely ?? Hemoptysis???scant volume Patient has had about 1-2 episodes of dime sized hemoptysis??daily??over last few days Continue to monitor closely ?? Hypothyroidism Continue levothyroxine 25??Monday to Monday Continue levothyroxine 50??Monday and Monday ?? Hypertension Continue metoprolol ER 50 ?? Anxiety Continue Valium??as needed Requesting spiritual consultation He was seen by psychiatry??at??[facility] ?? History of heart failure with preserved ejection fraction Currently euvolemic Monitor ins and out Monitor daily weights Monitor respiratory status closely ?? DVT prophylaxis???on Coumadin at baseline, will order SCD tonight ?? Diet???clear liquid at cardiology request ?? CODE STATUS???full code ?? Yojana Valdes MD [facility] Medicine Date-June 20, 2022. ??Patient seen at 10 PM ?? IMPORTANT: This document was created by voice recognition software. A conscious effort has been made to improve accuracy of the lithographic proofer apprentice. Any obvious errors or omissions should be clarified with the authorof this document. Histories Allergies Allergies ?(Active and Proposed Allergies Only) busPIRone? (Severity: Unknown severity, Onset: Unknown) ?Reactions: Dizziness, Headache, Feeling of throat tightness Avocado? (Severity: Unknown severity, Onset: Unknown) ipratropium? (Severity: Unknown severity, Onset: Unknown) penicillin? (Severity: Unknown severity, Onset: Unknown) ?Comments: Allergy testing doelmira 3/20 was negative so unlikely she is [...] Unknown) ? Past Medical History/Problem List Active Problems??(33) Antiphospholipid syndrome Anxiety Bilateral lower extremity pain [...] headache Optic neuritis Osteoporosis Platelet function defect Productive cough Radiation pneumonitis Respiratory failure with hypoxia Situational [...] History Alcohol Details:??Use: Never. 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 Exercise Details:??Regular exercise: No. Home/Environment Details:??Living situation: [...] 20 mg oral tablet)?20?Milligram?1?tablet?By Mouth?Daily?as needed?leg swelling Lanolin-Mineral Oil Topical (lanolin-mineral oil topical lotion)?See Instructions?USE TWICE DAILY levocetirizine (Xyzal 5 mg oral tablet)?1?tab(s)?5?Milligram?By Mouth?Daily [...] for 3 days05/1702/2220 mg daily for 3 days05/2210 mg daily for 3 days05/23/22 5 mg every day Rosuvastatin (rosuvastatin 10 mg oral tablet)?1?tab(s)?10?Milligram?By Mouth?Every Monday, Monday and Monday Senna (Senna 8.6 mg oral tablet)?17.2?Milligram?2?tab(s)?By Mouth?Daily at bedtime?as needed?as needed for constipation Trazodone (trazodone 50 mg oral tablet)?2?tab(s)?100?Milligram?By Mouth?Daily at bedtime?Dr. Kelly Warfarin (warfarin 1 mg oral tablet)?2?tab(s)?2?Milligram?By Mouth?Daily?(Jovana jorge's to test her blood today, changes with INR) Warfarin (warfarin 1 mg oral tablet)?See Instructions?take 1-2 ??tablets By Mouth Daily as directed by the anticoagulation clinic ? Results ? COVID-19 (2019 Novel Coronavirus) PCR?? Collected?? Source: Nasal Body Site: Nose Collected Dt/Tm: 06/20/2022 22:50 Last Updated Dt/Tm: 06/20/2022 20:47 ? EKG study * Event Display: ECG 12-Lead Authored Date: Please click on pdf link to open report * Event Display: ECG 12-Lead Authored Date: Ventricular Rate: 111 BPM Atrial Rate: 111 BPM P-R Interval: 172 ms QRS Duration: 108 ms Q-T Interval: 338 ms QTC Calculation(Bazett): 459 ms P Stevenson: 74 degrees R Stevenson: -62 degrees T Stevenson: 108 degrees Sinus tachycardia Possible Left atrial enlargement Incomplete right bundle branch block Left anterior fascicular block Left ventricular hypertrophy with repolarization abnormality Abnormal ECG When compared with ECG of 20-JUN-2022 23:41, ST now depressed in Anterior leads Confirmed by STEF FRANCO MD ([id number]) on 06/28/2022 9:21:19 AM Dexter: STEF FRANCO MD * Event Display: ECG 12-Lead Authored Date: Please click on pdf link to open report * Event Display: ECG 12-Lead Authored Date: Ventricular Rate: 105 BPM Atrial Rate: 105 BPM P-R Interval: 148 ms QRS Duration: 116 ms Q-T Interval: 372 ms QTC Calculation(Bazett): 491 ms P Stevenson: 59 degrees R Stevenson: -58 degrees T Stevenson: 104 degrees Sinus tachycardia Left anterior fascicular block Left ventricular hypertrophy with QRS widening and repolarization abnormality Abnormal ECG When compared with ECG of 15-MAY-2022 23:28, Non-specific change in ST segment in Anterior leads QT has lengthened Confirmed by NOHELIA DEAN ([id number]) on 06/21/2022 9:44:53 AM Dexter: NOHELIA DEAN [facility] Progress note * Monica Shaikh RN: SIGN, MODIFY, PERFORM, SIGN, VERIFY Event Display: Progress Note Hospital Authored Date: Patient: JOVANA WATSON Age: 77 years Sex: Female : 1945 Associated Diagnoses: None Author: Monica Shaikh RN Findings Problem Related to Alteration in Cardiac Function (new) : Alteration in Cardiac Function/new 06/27/2022 14:00 EST Alteration in Cardiac Status Related to ACS, Other: NSTEMI Goals & Outcomes, Cardiac Status Pt will resume/maintain adequate cardiac output, Pt will resume/maintain adequate hemodynamic status Cardiac Interventions Implemented Assess/monitor cardiac status, Assess/monitor neuro status, Assess/monitor respiratory status, Teach/encourage deep breath & cough exercises, Teach/encourage useof incentive spirometer BH Goals/Interventions, Cardiac Yes Cardiac, Problem Start 06/21/2022 15:02 Reviewed Plan with, Cardiac Status Patient Patient Progression, Cardiac Status Patient progressing according to plan . Alteration in Safety : Alteration in Safety/new 06/27/2022 14:00 EST Alteration in Safety Related to Other: fall risk Goals & Outcomes, Safety Pt will remain safe & injury free Interventions, Safety Provide teaching as needed BH Goals/Interventions, Safety Yes Safety, Problem Start 06/23/2022 20:17 Reviewed plan with, Safety Patient Patient Progression, Safety Pt progressing according to plan . Evaluation pt aox3-VS at baseline-LS CTA, slightly diminished bilaterally-pt reports I told the doctor already. pulDr Yandel crowe and cards Nicolás texted as pt would like a visit from both, Yandel to see pt, no response from Nicolás, not sure if someone else is covering fot him today-pt aslo with complaint of bridgeof nose hurting from CPAP mask-small area f blanchable errythema noted with pinpoint open area-antibiotic ointment applied-suggested some protection while wearing CPAP mask-pt thinking about it-pt with c/o constipation although had a BM yesterday- bisocodyl supp given, awaiting results. * Monica Shaikh RN: PERFORM Event Display: Progress Note Hospital Authored Date: [id number] around 1830, pt c/o bilateral chest tingling and heaviness, EKG and VS done-HR up to 100s-[place] [id number] Menjivar returned call and NTG ordered and given as well as night metoprolol--pt has short burst of ST in the 130s-symptoms relieved after meds-pt very anxious and shaking-attempt to calm with little effect-pt coughed up some clear sputum streaked with light colored blood-no resp distress and sats 99 % on room air, pt with occasional cough-no distress-K. Reccord notified and notified, pt would like a practitioner to come to bedside- CXR ordered-pt notified * Savannah STARK, Robert D: MODIFY, PERFORM Event Display: Progress Note Hospital Authored Date: Patient: ??JOVANA WATSON ? Age:??77 Years?Sex:??Female?:??1945?? Subjective Patient seen lens gauger. ??Denies any nausea vomiting chest pain or shortness of breath. ??She is??requesting??to see Dr. Martin and ??Samira. ??Message sent to both of them Patient currently on heparin drip with improving INR After increasing the dose of??Coumadin??yesterday.?? Discussed with patient that she is overall improving and for potential discharge tomorrow. -Discussed with pharmacy??recommended continuing 4 mg of Coumadin. Review of Systems Objective Measurements?? Height: 160 cm (06/27/22) Weight: 59.5 kg (06/21/22) Dry Weight: 59.5 kg (06/20/22) Body Mass Index: 23.24 kg/m2 (06/20/22) ? Vital Signs?? Temperature: 98.7 DegF (06/27/22 11:44:00) Temperature Route: Oral (06/27/22 11:44:00) Pulse Rate: 76 bpm (06/27/22 11:44:00) Pulse Rate, Lyin bpm (06/26/22 12:17:00) Systolic Blood Pressure, Lyin mm Hg (06/26/22 12:17:00) Diastolic Blood Pressure, Lyin mm Hg (06/26/22 12:17:00) Pulse Rate, Sittin bpm (06/26/22 12:17:00) Systolic Blood Pressure, Sittin mm Hg (06/26/22 12:17:00) Diastolic Blood Pressure, Sittin mm Hg (06/26/22 12:17:00) Pulse Rate, Standin bpm (06/26/22 12:17:00) Systolic Blood Pressure, Standin mm Hg (06/26/22 12:17:00) Diastolic Blood Pressure, Standin mm Hg (06/26/22 12:17:00) Heart Rate Monitored: 78 bpm (06/27/22 03:59:00) Respiratory Rate: 18 br/min (06/27/22 11:44:00) Systolic Blood Pressure: 102 mm Hg (06/27/22 11:44:00) Diastolic Blood Pressure:??50 mm Hg??Low (06/27/22 11:44:00) Blood pressure sites: Arm, right (06/27/22 11:44:00) Mean Arterial Pressure: 67 mm Hg (06/27/22 11:44:00) Pulse Pressure: 52 mm Hg (06/27/22 11:44:00) Oxygen Saturation: 99 % (06/27/22 11:44:00) Mode of Delivery (Oxygen): Room air (06/27/22 11:44:00) Early Warning Score: 0 (06/27/22 11:49:28) ? Precautions No Precautions documented.? Physical Exam General: Is appears comfortable in no distress HEENT: ??mucous mucous membranes appear wet, PERRLA Cardiovascular: S1-S2 heard no murmurs appreciated Respiratory: CTA without any wheezing or crackles anteriorly, GI: Abdomen nontender to palpation, no distention, no obvious hepatosplenomegaly Neuro: AOx3 plus date of , able to raise all extremities on commands Psych: Appears calm without any agitation _ Inpatient Medications Medications (23) Active SCHEDULED: (11) Albuterol 90mcg/Inhalation Inhaler HFA (albuterol CFC free 90 mcg/inh inhalation aerosol) ??180 mcg2 puffs, Inhalation, Every 4 hours Breo Ellipta 200 mcg / 25 mcg Inhaler (Breo Ellipta 200 mcg-25 mcg Inhaler) ??1 puffs, Inhalation, Daily Furosemide Inj (Lasix ??Inj) ??20 mg 2 mL, IV Push Slowly, Daily Levothyroxine 25 mcg Tablet (levothyroxine 0.025 mg oral tablet) ??25 mcg, By Mouth, Monday throughMonday Metoprolol 25 mg XL Tablet (Toprol XL 25 mg oral tablet, extended release) ??25 mg, By Mouth, 2 times a day Montelukast 10 mg Tablet (Singulair 10 mg oral tablet) ??10 mg, By Mouth, Daily at bedtime NaCl 0.9% Flush 3ml (NaCL 0.9% Flush) ??3 mL, IV Push, Every 8 hours Pantoprazole 20 mg EC Tablet (Protonix 20 mg oral delayed release tablet) ??20 mg, By Mouth, Daily Rosuvastatin 5 mg Tablet (rosuvastatin 5 mg oral tablet) ??10 mg, By Mouth, Every Monday, Mondayand Monday Trazodone 50 mg Tablet (traZODone 50 mg oral tablet) ??100 mg, By Mouth, Daily at bedtime Warfarin 2 mg Tablet (Warfarin Tablet) ??4 mg, By Mouth, Daily CONTINUOUS: (1) Heparin 25,000 units / 250 mL D5W premix 96518 units [11 units/kg/hr] + D5%W Premixed IV 250 mL (Heparin 25,000 units in 250 mL Premix 05317 units [11 units/kg/hr] + D5%W Premixed IV 250 mL) ??250 mL, IV Infusion, 6.55 mL/hr PRN: (11) Acetaminophen 325 mg Tablet (Acetaminophen Tablet) ??650 mg, By Mouth, Every 4 hours Al hydroxide/Mg hydroxide/simethicone 200 mg-200 mg-20 mg/5 mL Susp UD (Maalox Plus Liquid) ??15 mL, By Mouth, 4 times a day Albuterol 90mcg/Inhalation Inhaler HFA (albuterol CFC free 90 mcg/inh inhalation aerosol) ??90 mcg 1 puffs, Inhalation, Every 4 hours Bisacodyl 10 mg Suppository (Bisacodyl Supp) ??10 mg 1 supp, Rectally, Daily Diazepam 5 mg Tablet (diazepam 5 mg oral tablet) ??5 mg, By Mouth, 2 times a day Guaifenesin 200mg/10mL Syrup UD (Robitussin Liquid) ??200 mg 10 mL, By Mouth, Every 4 hours Heparin 5000 units/mL Inj (1 mL) (Heparin Inj) ??2,500 units 0.5 mL, IV Push, Every 6 hours Meclizine 12.5 mg Tablet (meclizine 12.5 mg [...] Recent Labs BLOOD COUNT & DIFF WBC 12.3 k/mm3 (High)?? 06/27/2022 00:06 RBC 3.03 m/mm3 (Low)?? 06/27/2022 00:06 Hgb 9.9 Gm/dL (Low)?? 06/27/2022 00:06 Hct 30.8 % (Low)?? 06/27/2022 00:06 MCV 101.7 femtoliters (High)?? 06/27/2022 00:06 MCH 32.7 pg ()?? 06/27/2022 00:06 MCHC 32.1 g/dL (Low)?? 06/27/2022 00:06 Platelet Count 238 k/mm3 ()?? 06/27/2022 00:06 RDW-SD 54.3 femtoliters (High)?? 06/27/2022 00:06 MPV 11.1 femtoliters ()?? 06/27/2022 00:06 Nucleated RBC (Automated) 0.0 #/100 WBC'S ()?? 06/27/2022 00:06 Abs. NRBC 0.0 k/mm3 ()?? 06/27/2022 00:06 ?? CHEM GENERAL Sodium 138 mmol/L ()?? 06/26/2022 07:06 Potassium 3.9 mmol/L ()?? 06/26/2022 07:06 Chloride 100 mmol/L ()?? 06/26/2022 07:06 Bicarbonate Level 30 mmol/L (High)?? 06/26/2022 07:06 Anion Gap 8 ()?? 06/26/2022 07:06 Glucose Level 83 mg/dL ()?? 06/26/2022 07:06 BUN 12 mg/dL ()?? 06/26/2022 07:06 Creatinine-Blood 0.9 mg/dL ()?? 06/26/2022 07:06 Estimated GFR Creatinine 66 ML/MIN/1.73 M2 ()?? 06/26/2022 07:06 Calcium 9.4 mg/dL ()?? 06/26/2022 07:06 ?? COAG INR 1.4 (High)?? 06/27/2022 04:51 Protime (PT) 13.8 seconds (High)?? 06/27/2022 04:51 APTT 36.6 seconds (High)?? 06/27/2022 04:51 ?? MISC. CHEMISTRY Hold Gel Top SPECIMEN DISCARDED AFTER 1 WEEK ()?? 06/27/2022 00:06 ? Abnormal Labs ?? BLOOD COUNT & DIFF ??Abs. NRBC ??0.0 k/mm3 () ??06/27/2022 00:06 ??Hct ??30.8 % (Low) ??06/27/2022 00:06 ??Hgb ??9.9 Gm/dL (Low) ??06/27/2022 00:06 ??MCHC ??32.1 g/dL (Low) ??06/27/2022 00:06 ??MCV ??101.7 femtoliters (High) ??06/27/2022 00:06 ??Nucleated RBC (Automated) ??0.0 #/100 WBC'S () ??06/27/2022 00:06 ??RBC ??3.03 m/mm3 (Low) ??06/27/2022 00:06 ??RDW-SD ??54.3 femtoliters (High) ??06/27/2022 00:06 ??WBC ??12.3 k/mm3 (High) ??06/27/2022 00:06 ? COAG ??APTT ??36.6 seconds (High) ??06/27/2022 04:51 ??INR ??1.4 (High) ??06/27/2022 04:51 ??Protime (PT) ??13.8 seconds (High) ??06/27/2022 04:51 ? MISC. CHEMISTRY ??Hold Gel Top ??SPECIMEN DISCARDED AFTER 1 WEEK () ??06/27/2022 00:06 ? Note: Critical results are displayed in red. ? (06/24/2022 18:43 EST US Doppler Ext Lower Venous Bilat) IMPRESSION:? No evidence of deep venous thrombosis. [1] ?? Increasing left pleural effusion, likely moderate in size with adjacent atelectasis or consolidation. ?? Echo 09/2011??IMPRESSION: he left ventricular size is normal. Left ventricular wall thickness is ??normal. The LV systolic function is normal . The left ventricular ejection ??fraction is 65-70 %. No obvious wall motion abnormalities seen on limited ??views. Left ventricular filling pressures are indeterminate. ?The aortic valve is trileaflet . The aortic valve appears mildly thickened. ??There is no aortic stenosis. There is mild aortic regurgitation. ??There is mild mitral annular calcification. The mitral valve opening is ??normal. There is trivial mitral regurgitation. ??The right ventricle is normal in size and function. ??The pulmonic valve appears grossly normal. ??There is a left-sided pleural effusion. ?Comparison ??Comparison is made to the study of April 12, 2021. ??There is no definite interval change. [1] centimeters ? (04/13/2022 04:[address] Angio Chest) Volume loss in the left lung status post partial left lower lobectomy Assessment/Plan ??77-year-old pleasant female patient with history of COPD/KANDY???on BiPAP nightly and home O2 inhalation as needed???2 L, pulmonary hypertension, antiphospholipid antibody syndrome with history of PE/DVT???on chronic warfarin???goal of INR 1.5-2 due to history of platelet dysfunction, stage IIIa lung cancer status post left lower lobe lobectomy and neoadjuvant chemoradiation, radiation pulmonary fibrosis, nonobstructive CAD status post NSTEMI, heart failure with preserved ejection fraction, hypothyroidism, hypogammaglobulinemia, recent admission for influenza A with COPD exacerbation at [facility]-she was recently admitted at [facility] on June 14??for COPD extubation and found to have NSTEMI. ??Was transferred??in discussion with cardiology and pulmonary for further management to [facility].??Cardiac cath on 06/21:non-obstructive; 40-50% mid LAD stenosis - similar to previous cath. Prese. C with severe pulm HTN. ??Patient's presentation??consistent with Takotsubo cardiomyopathy per cath notes ??thoracentesis deferred??as patient improving with diuresis. ??Resumed heparin??drip 06/23/2022??awaiting for therapeutic INR. ??Plan for discharge??home with services ?? # NSTEMI # History of??CAD/NSTEMI???nonocclusive cath # Hyperlipidemia, history of allergy to iodinated contrast # Takasubo cardiomyopathy ?? s/p??prednisone due to history of??allergy to??iodinated contrast Echo at outside hospital showed??apical lateral hypokinesis and apical and apical septal akinesis. Cardiac cath on 06/21:non-obstructive; 40-50% mid LAD stenosis - similar to previous cath per cath report patient presentation consistent with?? Takasubo cardiomyopathy Aggressive secondary risk factor modification according to ATP III??guidelines. Continue statin ? # Dyspnea # B/L Pleural effusion # Severe Pulmonary HTN -# Acute on chronic diastolic heart failure in exacerbation -Continue Lasix 20 mg as blood pressure tolerates -b/l pleural effusion - ambulate home o2 eval?? -Added cough suppressant and??guaifenesin??for patient's comfort ? # History of antiphospholipid antibody syndrome # History of VTE # History of platelet dysfunction - Patient [facility]. Mills[facility]??as well as Dr. Hogan from [facility]. ??Requesting Dr. Rubin guard notified. ?? -?? case was discussed with Hematology?? previously .?? Recommended INR goal??1.5-2.?? start??bridging with??heparin??with PTT goal 35-45.?? Restart Heparin 06/23/22 . ??Discussed with pharmacy and adjusted patient's??heparin drip. -Increase Coumadin to 4 mg as patient has not responded well to her home dose of 2 mg of Coumadin. ?? # COPD with exacerbation???resolved # Recent treatment for pneumonia???completed antibiotics # IIIa lung cancer status post left lower lobe lobectomy and neoadjuvant chemoradiation, radiation pulmonary fibrosis, Continue DuoNeb standing and as needed - stable ?? # Hemoptysis???scant volume Patient has had about 1-2 episodes of dime sized hemoptysis??daily??over last few days Continue to monitor closely ?? # Hypothyroidism Continue levothyroxine 25??Monday to Monday Continue levothyroxine 50??Monday and Monday ?? # Hypertension :?? 102/50 Borderline low blood pressure, continue metoprolol 25 twice daily ?? #Anxiety Continue Valium??as needed Requesting spiritual consultation He was seen by psychiatry??at??[facility] ? DVT prophylaxis???heparin drip ordered Diet???regular diet CODE STATUS???full code Disposition : Home with services when she has??which is a therapeutic INR 1.5-2, discussed with patient and nurse?? and CM Daughter updated 06/27/2022 ? Diagnoses NSTEMI (non-ST elevated myocardial infarction) ??(I21.4) Pain in both lower legs ??(M79.661) ? * Savannah STARK, Robert D: PERFORM Event Display: Progress Note Hospital Authored Date: Patient: ??JOVANA WATSON ? Age:??77 Years?Sex:??Female?:??1945?? Subjective Patient seen at bedside. ??Denies any nausea vomiting chest pain or shortness of breath. ??Appears comfortable. -reached out to ??Samira per patients Request and he said he would stop by.?? Discussed withpharmacy will increase warfarin to 4 mg??as patient's INR has not improved - Review of Systems Objective Measurements?? Height: 160 cm (06/26/22) Height: 160 cm (06/26/22) Weight: 59.5 kg (06/21/22) Dry Weight: 59.5 kg (06/20/22) Body Mass Index: 23.24 kg/m2 (06/20/22) ? Vital Signs?? Temperature: 98 DegF (06/26/22 12:17:00) Temperature Route: Oral (06/26/22 12:17:00) Pulse Rate: 78 bpm (06/26/22 12:17:00) Pulse Rate, Lyin bpm (06/26/22 12:17:00) Systolic Blood Pressure, Lyin mm Hg (06/26/22 12:17:00) Diastolic Blood Pressure, Lyin mm Hg (06/26/22 12:17:00) Pulse Rate, Sittin bpm (06/26/22 12:17:00) Systolic Blood Pressure, Sittin mm Hg (06/26/22 12:17:00) Diastolic Blood Pressure, Sittin mm Hg (06/26/22 12:17:00) Pulse Rate, Standin bpm (06/26/22 12:17:00) Systolic Blood Pressure, Standin mm Hg (06/26/22 12:17:00) Diastolic Blood Pressure, Standin mm Hg (06/26/22 12:17:00) Respiratory Rate: 18 br/min (06/26/22 12:17:00) Systolic Blood Pressure: 103 mm Hg (06/26/22 12:17:00) Diastolic Blood Pressure:??49 mm Hg??Low (06/26/22 12:17:00) Blood pressure sites: Arm, left (06/26/22 12:17:00) Mean Arterial Pressure: 67 mm Hg (06/26/22 12:17:00) Pulse Pressure: 54 mm Hg (06/26/22 12:17:00) Oxygen Saturation: 97 % (06/26/22 12:17:00) Mode of Delivery (Oxygen): Room air (06/26/22 12:17:00) Early Warning Score: 0 (06/26/22 12:17:45) ? Precautions No Precautions documented.? Physical Exam General: Is appears comfortable in no distress HEENT: ??mucous mucous membranes appear wet, PERRLA Cardiovascular: S1-S2 heard no murmurs appreciated Respiratory: CTA without any wheezing or crackles anteriorly, GI: Abdomen nontender to palpation, no distention, no obvious hepatosplenomegaly Neuro: AOx3 plus date of , able to raise all extremities on commands Psych: Appears calm without any agitation _ Inpatient Medications Medications (24) Active SCHEDULED: (12) Albuterol 90mcg/Inhalation Inhaler HFA (albuterol CFC free 90 mcg/inh inhalation aerosol) ??180 mcg2 puffs, Inhalation, Every 4 hours Breo Ellipta 200 mcg / 25 mcg Inhaler (Breo Ellipta 200 mcg-25 mcg Inhaler) ??1 puffs, Inhalation, Daily Furosemide Inj (Lasix ??Inj) ??20 mg 2 mL, IV Push Slowly, Daily Levothyroxine 25 mcg Tablet (levothyroxine 0.025 mg oral tablet) ??25 mcg, By Mouth, Monday throughMonday Levothyroxine 25 mcg Tablet (levothyroxine 0.025 mg oral tablet) ??50 mcg, By Mouth, Daily Metoprolol 25 mg XL Tablet (Toprol XL 25 mg oral tablet, extended release) ??25 mg, By Mouth, 2 times a day Montelukast 10 mg Tablet (Singulair 10 mg oral tablet) ??10 mg, By Mouth, Daily at bedtime NaCl 0.9% Flush 3ml (NaCL 0.9% Flush) ??3 mL, IV Push, Every 8 hours Pantoprazole 20 mg EC Tablet (Protonix 20 mg oral delayed release tablet) ??20 mg, By Mouth, Daily Rosuvastatin 5 mg Tablet (rosuvastatin 5 mg oral tablet) ??10 mg, By Mouth, Every Monday, Mondayand Monday Trazodone 50 mg Tablet (traZODone 50 mg oral tablet) ??100 mg, By Mouth, Daily at bedtime Warfarin (Warfarin Tablet) ??4 mg, By Mouth, Daily CONTINUOUS: (1) Heparin 25,000 units / 250 mL D5W premix 32098 units [11 units/kg/hr] + D5%W Premixed IV 250 mL (Heparin 25,000 units in 250 mL Premix 58050 units [11 units/kg/hr] + D5%W Premixed IV 250 mL) ??250 mL, IV Infusion, 6.55 mL/hr PRN: (11) Acetaminophen 325 mg Tablet (Acetaminophen Tablet) ??650 mg, By Mouth, Every 4 hours Al hydroxide/Mg hydroxide/simethicone 200 mg-200 mg-20 mg/5 mL Susp UD (Maalox Plus Liquid) ??15 mL, By Mouth, 4 times a day Albuterol 90mcg/Inhalation Inhaler HFA (albuterol CFC free 90 mcg/inh inhalation aerosol) ??90 mcg 1 puffs, Inhalation, Every 4 hours Bisacodyl 10 mg Suppository (Bisacodyl Supp) ??10 mg 1 supp, Rectally, Daily Dextromethorphan-Guaifenesin 20 mg-200 mg/10 mL Liqu UD (GuaiFENEsin /Dextromethorphan Liquid) ??10mL, By Mouth, Every 4 hours Diazepam 5 mg Tablet (diazepam 5 mg oral tablet) ??5 mg, By Mouth, 2 times a day Heparin 5000 units/mL Inj (1 mL) (Heparin Inj) ??2,500 units 0.5 mL, IV Push, Every 6 hours Meclizine 12.5 mg Tablet (meclizine 12.5 mg oral tablet) ??25 mg, By Mouth, 4 times a day Melatonin 3 mg Tablet (Melatonin Tablet) ??3 mg, By Mouth, Daily at bedtime NaCl 0.9% Flush 3ml (NaCL 0.9% Flush) ??3 mL, IV Push, Every 8 hours Senna 8.6 mg / Docusate 50 mg tablet (Docusate/Senna Tablet) ??1 tablet, By Mouth, 2 times a day ? IV Titrations (Last 24 hrs) Most Recent Infusions (Max of 3)? 06/26 10:28 ? Heparin 25,000 units in 250 mL Premix 19653 units [11 units/kg/hr] + D5%W Premixed IV 250 mL 11 units/kg/hr ? Results Recent Labs BLOOD COUNT & DIFF WBC 11.8 k/mm3 (High)?? 06/26/2022 07:06 RBC 3.27 m/mm3 (Low)?? 06/26/2022 07:06 Hgb 10.6 Gm/dL (Low)?? 06/26/2022 07:06 Hct 33.2 % (Low)?? 06/26/2022 07:06 MCV 101.5 femtoliters (High)?? 06/26/2022 07:06 MCH 32.4 pg ()?? 06/26/2022 07:06 MCHC 31.9 g/dL (Low)?? 06/26/2022 07:06 Platelet Count 246 k/mm3 ()?? 06/26/2022 07:06 RDW-SD 54.9 femtoliters (High)?? 06/26/2022 07:06 MPV 10.9 femtoliters ()?? 06/26/2022 07:06 Nucleated RBC (Automated) 0.2 #/100 WBC'S ()?? 06/26/2022 07:06 Abs. NRBC 0.0 k/mm3 ()?? 06/26/2022 07:06 ?? CHEM GENERAL Sodium 138 mmol/L ()?? 06/26/2022 07:06 Potassium 3.9 mmol/L ()?? 06/26/2022 07:06 Chloride 100 mmol/L ()?? 06/26/2022 07:06 Bicarbonate Level 30 mmol/L (High)?? 06/26/2022 07:06 Anion Gap 8 ()?? 06/26/2022 07:06 Glucose Level 83 mg/dL ()?? 06/26/2022 07:06 BUN 12 mg/dL ()?? 06/26/2022 07:06 Creatinine-Blood 0.9 mg/dL ()?? 06/26/2022 07:06 Estimated GFR Creatinine 66 ML/MIN/1.73 M2 ()?? 06/26/2022 07:06 Calcium 9.4 mg/dL ()?? 06/26/2022 07:06 Phosphorus 2.7 mg/dL ()?? 06/25/2022 07:04 Magnesium 2.5 mg/dL (High)?? 06/25/2022 07:04 ?? COAG INR 1.3 (High)?? 06/26/2022 07:06 Protime (PT) 13.4 seconds (High)?? 06/26/2022 07:06 APTT 48.3 seconds (High)?? 06/26/2022 07:06 ? Abnormal Labs ?? BLOOD COUNT & DIFF ??Abs. NRBC ??0.0 k/mm3 () ??06/26/2022 07:06 ??Hct ??33.2 % (Low) ??06/26/2022 07:06 ??Hgb ??10.6 Gm/dL (Low) ??06/26/2022 07:06 ??MCHC ??31.9 g/dL (Low) ??06/26/2022 07:06 ??MCV ??101.5 femtoliters (High) ??06/26/2022 07:06 ??Nucleated RBC (Automated) ??0.2 #/100 WBC'S () ??06/26/2022 07:06 ??RBC ??3.27 m/mm3 (Low) ??06/26/2022 07:06 ??RDW-SD ??54.9 femtoliters (High) ??06/26/2022 07:06 ??WBC ??11.8 k/mm3 (High) ??06/26/2022 07:06 ? CHEM GENERAL ??Bicarbonate Level ??30 mmol/L (High) ??06/26/2022 07:06 ??Estimated GFR Creatinine ??66 ML/MIN/1.73 M2 () ??06/26/2022 07:06 ? COAG ??APTT ??48.3 seconds (High) ??06/26/2022 07:06 ??INR ??1.3 (High) ??06/26/2022 07:06 ??Protime (PT) ??13.4 seconds (High) ??06/26/2022 07:06 ? Note: Critical results are displayed in red. ? (06/24/2022 18:43 EST US Doppler Ext Lower Venous Bilat) IMPRESSION:? No evidence of deep venous thrombosis. [1] ?? Increasing left pleural effusion, likely moderate in size with adjacent atelectasis or consolidation. ?? Echo 09/2011??IMPRESSION: he left ventricular size is normal. Left ventricular wall thickness is ??normal. The LV systolic function is normal . The left ventricular ejection ??fraction is 65-70 %. No obvious wall motion abnormalities seen on limited ??views. Left ventricular filling pressures are indeterminate. ?The aortic valve is trileaflet . The aortic valve appears mildly thickened. ??There is no aortic stenosis. There is mild aortic regurgitation. ??There is mild mitral annular calcification. The mitral valve opening is ??normal. There is trivial mitral regurgitation. ??The right ventricle is normal in size and function. ??The pulmonic valve appears grossly normal. ??There is a left-sided pleural effusion. ?Comparison ??Comparison is made to the study of April 12, 2021. ??There is no definite interval change. [1] centimeters ? (04/13/2022 04:[address] Angio Chest) Volume loss in the left lung status post partial left lower lobectomy Assessment/Plan ??77-year-old pleasant female patient with history of COPD/KANDY???on BiPAP nightly and home O2 inhalation as needed???2 L, pulmonary hypertension, antiphospholipid antibody syndrome with history of PE/DVT???on chronic warfarin???goal of INR 1.5-2 due to history of platelet dysfunction, stage IIIa lung cancer status post left lower lobe lobectomy and neoadjuvant chemoradiation, radiation pulmonary fibrosis, nonobstructive CAD status post NSTEMI, heart failure with preserved ejection fraction, hypothyroidism, hypogammaglobulinemia, recent admission for influenza A with COPD exacerbation at [facility]-she was recently admitted at [facility] on June 14??for COPD extubation and found to have NSTEMI. ??Was transferred??in discussion with cardiology and pulmonary for further management to [facility].??Cardiac cath on 06/21:non-obstructive; 40-50% mid LAD stenosis - similar to previous cath. Prese. RHC with severe pulm HTN. ??Patient's presentation??consistent with Takotsubo cardiomyopathy per cath notes ??thoracentesis deferred??as patient improving with diuresis. ??Resumed heparin??drip 06/23/2022??awaiting for therapeutic INR. ??Plan for discharge??home with services ?? # NSTEMI # History of??CAD/NSTEMI???nonocclusive cath # Hyperlipidemia, history of allergy to iodinated contrast # Takasubo cardiomyopathy ?? s/p??prednisone due to history of??allergy to??iodinated contrast Echo at outside hospital showed??apical lateral hypokinesis and apical and apical septal akinesis. Cardiac cath on 06/21:non-obstructive; 40-50% mid LAD stenosis - similar to previous cath per cath report patient presentation consistent with?? Takasubo cardiomyopathy Aggressive secondary risk factor modification according to ATP III??guidelines. Continue statin ? # Dyspnea # B/L Pleural effusion # Severe Pulmonary HTN -# Acute on chronic diastolic heart failure in exacerbation -Continue Lasix 20 mg as blood pressure tolerates -b/l pleural effusion - ambulate home o2 eval?? -Added cough suppressant and??guaifenesin??for patient's comfort ? # History of antiphospholipid antibody syndrome # History of VTE # History of platelet dysfunction - Patient [facility]. Mills[facility]as well as Dr. Hogan from [facility]. ??Requesting Dr. Rubin guard notified. ?? -?? case was discussed with Hematology?? previously .?? Recommended INR goal??1.5-2.?? start??bridging with??heparin??with PTT goal 35-45.?? Restart Heparin 06/23/22 . ??Discussed with pharmacy and adjusted patient's??heparin drip. -Increase Coumadin to 4 mg as patient has not responded well to her home dose of 2 mg of Coumadin. ?? # COPD with exacerbation???resolved # Recent treatment for pneumonia???completed antibiotics # IIIa lung cancer status post left lower lobe lobectomy and neoadjuvant chemoradiation, radiation pulmonary fibrosis, Continue DuoNeb standing and as needed - stable ?? # Hemoptysis???scant volume Patient has had about 1-2 episodes of dime sized hemoptysis??daily??over last few days Continue to monitor closely ?? # Hypothyroidism Continue levothyroxine 25??Monday to Monday Continue levothyroxine 50??Monday and Monday ?? # Hypertension : Borderline low blood pressure, continue metoprolol 25 twice daily ?? #Anxiety Continue Valium??as needed Requesting spiritual consultation He was seen by psychiatry??at[facility] ? DVT prophylaxis???heparin drip ordered Diet???regular diet CODE STATUS???full code Disposition : Home with services when she has??which is a therapeutic INR 1.5-2 ?? Diagnoses NSTEMI (non-ST elevated myocardial infarction) ??(I21.4) Pain in both lower legs ??(M79.661) ? Deprecated Cardiac rehabilitation treatment plan Progress note and attainment of goals (narrative) * Andre Hamlin: VERIFY, PERFORM, SIGN Event Display: Cardiac Rehab Note Authored Date: Patient: JOVANA WATSON Age: 77 years Sex: Female : 1945 Associated Diagnoses: None Author: Andre Hamlin Diagnosis Cardiac Rehab Diagnosis: S/P NSTEMI, Pt with many questions, wants to review all educatuion with MD. Pre-exercise Vitals Vital Signs: 90 HR, 120/60 BP Sitting, 97% RA SaO2. Vital Signs Comment: Reviewed in CIS, RN informed of Vital Sign changes. Pre-exercise Physical Examination Neurologic: alert & oriented. Cardiovascular: heart rate regular. Activity Transfers: assist x 1 . Ambulate: assist x 1 , Pt OOB to the bathroom, Pt wants to be seen by Pulmoary to access her oxygen, declined AMB . Patient Education Education: Patient alone, Post procedure guidelines. Education topic Teachback comprehension 25% Topic: Role of exercise, Home activity guidelines/limits. Reinforcement needed: Medication education, Home activity guidelines/limits. Recommendation and Plan Outpatient follow up recommended: Pt declines. Cardiac Rehab: Will sign off at this time. Recommendation comment: RN notified of plan. US.doppler Lower extremity vein - bilateral * [facility] , CIS S: TRANSCRIBE Marisol STARK, Andre Ambrosio: VERIFY Event Display: Result: Authored Date: [id number] US Doppler Ext Lower Venous Bilat Reason: Pain Tenderness Extremities; Clinical Question(s): Thrombosis COMPARISON: None IMAGING TECHNIQUE: Ultrasound of the veins from the groin through the calf was performed using grayscale, color, and spectral Doppler ultrasound assessing for complete compressibility and normal flowcharacteristics. FINDINGS: RIGHT LOWER EXTREMITY: Common femoral vein: Patent. No thrombosis. Femoral vein: Patent. No thrombosis. Popliteal vein: Patent. No thrombosis. Gastrocnemius veins: The visualized portions are patent without evidence of thrombosis. Peroneal veins: The visualized portions are patent without evidence of thrombosis. Posterior tibial veins: The visualized portions are patent without evidence of thrombosis. LEFT LOWER EXTREMITY: Common femoral vein: Patent. No thrombosis. Femoral vein: Patent. No thrombosis. Popliteal vein: Patent. No thrombosis. Gastrocnemius veins: The visualized portions are patent without evidence of thrombosis. Peroneal veins: The visualized portions are patent without evidence of thrombosis. Posterior tibial veins: The visualized portions are patent without evidence of thrombosis. OTHER FINDINGS: There is a calcified phlebolith or calcified valve in the right popliteal vein. IMPRESSION: No evidence of deep venous thrombosis. WSN: [id number] Ordering Physician: Robert Gamble Dictated By: Andre Damon MD Dictated Date/Time: 06/24/22 7:50 pm Reviewed By: Andre Damon MD Signed By: Andre Damon MD Signed Date/Time: 06/24/22 7:50 pm Transcribed By: MART Transcribed Date/Time: 06/24/22 7:49 pm Portable XR Chest Views * [facility] , CIS S: TRANSCRIBE Jere Shankar MD S: VERIFY Event Display: Result: Authored Date: Chest Portable Reason: CHF; Clinical Question(s): CHF COMPARISON: 06/20/2022 FINDINGS: LINES AND TUBES: None. LUNGS AND PLEURA: Left base effusion improved compared to previous exam. Persistent reticular markings noted in the right lung may be chronic or possibly represent pulmonary edema. No pneumothorax. HEART, MEDIASTINUM AND PAULIE: Heart is normal in size. Normal mediastinal and hilar contour. BONES AND SOFT TISSUES: No acute abnormality. IMPRESSION: Improved left pleural effusion compared to previous examination. Persistent stable reticular markings in the right lung, nonspecific. WSN: [id number] Ordering Physician: Delmy Almanza Dictated By: Jere Shankar MD Dictated Date/Time: 06/27/22 10:06 p Reviewed By: Jere Shankar MD Signed By: Jere Shankar MD Signed Date/Time: 06/27/22 10:06 pm Transcribed By: MART Transcribed Date/Time: 06/27/22 10:03 pm * [facility] , CIS S: TRANSCRIBE Juan C Blancas MD: VERIFY Event Display: Result: Authored Date: [id number] Chest Portable Reason: Shortness of Breath; Clinical Question(s): Pneumonia COMPARISON: 06/03/2022 FINDINGS: LINES AND TUBES: None. LUNGS AND PLEURA: Increased density in the left lower hemithorax consistent with increasing pleural effusion with adjacent consolidation or atelectasis. Possible trace right pleural effusion without definite consolidation. HEART, MEDIASTINUM AND PAULIE: Unchanged. BONES AND SOFT TISSUES: No acute abnormality. IMPRESSION: Increasing left pleural effusion, likely moderate in size with adjacent atelectasis or consolidation. WSN: [id number] Ordering Physician: Yojana Valdes Dictated By: Juan C Blancas MD Dictated Date/Time: 06/21/22 0:01 am Reviewed By: Juan C Blancas MD Signed By: Juan C Blancas MD Signed Date/Time: 06/21/22 0:01 am Transcribed By: MART Transcribed Date/Time: 06/21/22 0:00 am Patient Care team information Care Team Personnel Name: Val Wynne Position: [facility] Onco RN Member Role: Primary Care Nurse Name: Karen Pittman RN Position: S RN Member Role: Primary Care Nurse Name: Shilpi Mattson Position: Reference Physician Member Role: Primary Care Nurse Address: Address: [address] [place] [address] [address] [place] [address]- [place] Name: Toyin Doherty RN Position: S RN Member Role: Primary Care Nurse Name: Eben Hernandez NP Position: S Associate Professional Member Role: Lifetime Consulting Provider Address: Address: [address] [place] [address]- Name: Alejandrina Turner RN Position: [facility] RN Member Role: Primary Care Nurse Name: Zoraida Felix RN Position: [facility] RN Member Role: Primary Care Nurse Name: Daphne Hooker RN Position: [facility] RN Member Role: Primary Care Nurse Name: Nasima Gonzalez RN Position: [facility] RN Loyda Member Role: Primary Care Nurse Name: Caitlyn Bowie MD Position: [facility] Primary Care Physician Member Role: PCP Address: Address: [address] [place] [address]- Name: Sheeba García Position: [facility] RN Member Role: Primary Care Nurse Name: Kiki Abdi RN Position: [facility] RN Member Role: Primary Care Nurse Name: Marry Reza Position: [facility] RN Member Role: Primary Care Nurse Name: Veronica Hurst MA Position: [facility] PCO RN Member Role: Lifetime Consulting Physician Name: Maddie Herrera RN Position: [facility] RN Member Role: Primary Care Nurse Name: Raegan Baptiste RN Position: [facility] RN Member Role: Primary Care Nurse Name: Svitlana Marcum RN Position: [facility] AMB Nurse Member Role: Primary Care Nurse Name: She Pool Position: [facility] RN Member Role: Primary Care Nurse Name: Kaila Latham RN Position: [facility] RN Member Role: Primary Care Nurse Name: Julio C Bahena Position: [facility] RN Member Role: Primary Care Nurse Name: Nasima Heredia RN Position: [facility] RN Member Role: Primary Care Nurse Name: Katherine Nixon PharmD Position: [facility] Associate Professional Member Role: Lifetime Consulting Provider Address: Address: [address] [place] [address]- Name: Daphne Barton RN Position: [facility] RN Member Role: Primary Care Nurse Name: Katherine Long RN Position: [facility] RN Member Role: Primary Care Nurse Name: Norma Serrano RN Position: [facility] RN Member Role: Primary Care Nurse Name: Aurea Kelly RN Position: [facility] RN Member Role: Primary Care Nurse Name: Seven Kelly RN Position: [facility] RN Member Role: Primary Care Nurse Name: Fani Perez RN Position: [facility] RN Member Role: Primary Care Nurse Name: Emely Her Position: [facility] RN Member Role: Primary Care Nurse Name: Yudith Rothman RN Position: [facility] RN Member Role: Primary Care Nurse Name: Parris Zuluaga RN Position: S RN Member Role: Primary Care Nurse Care Team Related Persons Name: ZENAIDA FLORES Address: [place] [address] Name: TIA RIVERS Address: [address] [address] Name: JOHANN RETANA Address: [place] [address]
--- OUTSIDE RECORDS SUMMARY | 2023-10-14 16:40 | XMS_ITS | Continuity of Care Document ---
Author Organization [facility] Address [address] [place] [address]- Care Team Providers Care Operating Room Rn Name Role Phone Caitlyn Bowie MD Primary Care Physician Encounter [facility] Date(s): 01/13/23 - 02/19/23 [facility] [address] [place], [place] [address] Attending Physician: Ally Correa MD Allergies, Adverse Reactions, Alerts Substance Reaction Severity Status ciprofloxacin Active penicillin 1 Active barium sulfate Active sulfa drugs Active gentamicin Active erythromycin Active vancomycin Active busPIRone Feeling of throat ti ghtness Headache Dizziness Active ipratropium Active morphine Active Gastrografin Active Levaquin Avocado Active iodinated [...] Care Team Personnel Name: Val Wynne [facility] Onco RN Member Role: Primary Care Nurse Name: Karen Pittman RN [facility] RN Member Role: Primary Care Nurse Name: Shilpi Mattson Position: Reference Physician Member Role: Primary Care Nurse Address: Address: [address] [place] [address]- [place] Name: Toyin Doherty RN [facility] RN Member Role: Primary Care Nurse Name: Eben Hernandez NP Position: [facility] Associate Professional Member Role: Lifetime Consulting Provider Address: Address: [address] [place] [address]- [place] Name: Alejandrina Turner RN Position[facility] RN Member Role: Primary Care Nurse Name: Zoraida Felix RN Position[facility] RN Member Role: Primary Care Nurse Name: Daphne Hooker RN [facility] RN Member Role: Primary Care Nurse Name: Nasima Gonzalez RN Position[facility] RN Supv Member Role: Primary Care Nurse Name: Caitlyn Bowie MD Position[facility] Physician - Primary Care Member Role: PCP Address: Address: [address] [place] [address]- [place] Name: Kiki Abdi RN Position[facility] RN Member Role: Primary Care Nurse Name: Marry Reza Position[facility] RN Member Role: Primary Care Nurse Name: Veronica Hurst MA Position: [facility] SALLY JORGENSEN Member Role: Lifetime Consulting Physician Name: Maddie Herrera RN Position: [facility] AMB Nurse Member Role: Primary Care Nurse Name: Raegan Baptiste RN Position[facility] RN Member Role: Primary Care Nurse Name: Svitlana Marcum RN Position: [facility] AMB Nurse Member Role: Primary Care Nurse Name: She Pool Position: [facility] RN Member Role: Primary Care Nurse Name: Kaila Latham RN Position[facility] RN Member Role: Primary Care Nurse Name: Julio C Bahena Position: [facility] RN Member Role: Primary Care Nurse Name: Nasima Heredia RN Position[facility] RN Member Role: Primary Care Nurse Name: Katherine Nixon PharmD Position: [facility] Associate Professional Member Role: Lifetime Consulting Provider Address: Address: [address] [place] [id number] Name: Daphne Barton RN Position[facility] RN Member Role: Primary Care Nurse Name: Katherine Long RN Position[facility] RN Member Role: Primary Care Nurse Name: Norma Serrano RN Position: [facility] RN Member Role: Primary Care Nurse Name: Seven Kelly RN Position: [facility] RN Member Role: Primary Care Nurse Name: Fani Perez RN Position: [facility] RN Member Role: Primary Care Nurse Name: Hattie Brewster RN Position[facility] RN Member Role: Primary Care Nurse Name: Yudith Rothman RN Position: [facility] Onco RN Member Role: Primary Care Nurse Name: Kelly Hernandez RN Position[facility] RN Member Role: Primary Care Nurse Name: Parris Zuluaga RN Position[facility] RN Member Role: Primary Care Nurse Care Team Related Persons Name: ZENAIDA FLORES Address: [place] [address] Name: TIA RIVERS Address: [place] [address] Name: JOHANN RETANA Address: [place] [address]
--- OUTSIDE RECORDS SUMMARY | 2023-10-14 16:40 | XMS_ITS | Continuity of Care Document ---
Author Organization [facility] Address [address] [place] [address]- Care Team Providers Care Finisher Polisher Name Role Phone Caitlyn Bowie MD Primary Care Physician [phone] Encounter [facility] Date(s): 10/08/21 - 11/07/21 [facility] [address] [place], [place] [address] Allergies, Adverse Reactions, Alerts Substance [...] day, 0 Refills, Maintenance, 11/06/21 12:44:00 EDT, [place], Partialfill upon patient request if the prescription [...]
--- OUTSIDE RECORDS SUMMARY | 2023-10-14 16:40 | XMS_ITS | Continuity of Care Document ---
Author Organization [facility] Address [address] [place] [address]- Care Team Providers Care Disability Advocate Name Role Phone Caitlyn Bowie MD Primary Care Physician [facility]counter [facility] Date(s): 08/22/22 - 09/21/22 [facility] [address] [place], [place] [address] Allergies, Adverse Reactions, Alerts Substance [...] Care Team Personnel Name: Val Wynne Position: [facility] Onco RN Member Role: Primary Care Nurse Name: Karen Pittman RN Position: [facility] RN Member Role: Primary Care Nurse Name: Shilpi Mattson Position: Reference Physician Member Role: Primary Care Nurse Address: Address: [address] [place] [address] [address] [place] [address]- [place] Name: Toyin Doherty RN Position: [facility] RN Member Role: Primary Care Nurse Name: Eben Hernandez NP Position: [facility] Associate Professional Member Role: Lifetime Consulting Provider Address: Address: [address] [place] [address]- Name: Alejandrina Turner RN Position: [facility] RN Member Role: Primary Care Nurse Name: Zoraida Felix RN Position: [facility] RN Member Role: Primary Care Nurse Name: Daphne Hooker RN Position: [facility] RN Member Role: Primary Care Nurse Name: Nasima Gonzalez RN Position: [facility] RN Loyda Member Role: Primary Care Nurse Name: Caitlyn Bowie MD Position: [facility] Primary Care Physician Member Role: PCP Address: Address: [address] [place] [address]- Name: Sheeba García Position: [facility] RN Member Role: Primary Care Nurse Name: Kiki Abdi RN Position: [facility] RN Member Role: Primary Care Nurse Name: Marry Reza Position: [facility] RN Member Role: Primary Care Nurse Name: Veronica Hurst [place] Position: [facility] PCO RN Member Role: Lifetime Consulting Physician Name: Maddie Herrera RN Position: [facility] RN Member Role: Primary Care Nurse Name: Raegan Baptiste RN Position: [facility] RN Member Role: Primary Care Nurse Name: Svitlana Marcum RN Position: [facility] AMB Nurse Member Role: Primary Care Nurse Name: She Pool Position: [facility] RN Member Role: Primary Care Nurse Name: Kaila Latham RN Position: [facility] RN Member Role: Primary Care Nurse Name: Julio C Bahena Position: [facility] RN Member Role: Primary Care Nurse Name: Nasima Heredia RN Position: [facility] RN Member Role: Primary Care Nurse Name: Katherine Nixon PharmD Position: [facility] Associate Professional Member Role: Lifetime Consulting Provider Address: Address: [address] [place] [address] Name: Daphne Barton RN Position: [facility] RN Member Role: Primary Care Nurse Name: Katherine Long RN Position: [facility] RN Member Role: Primary Care Nurse Name: Norma Serrano RN Position: [facility] RN Member Role: Primary Care Nurse Name: Seven Kelly RN Position: [facility] RN Member Role: Primary Care Nurse Name: Fani Perez RN Position: [facility] RN Member Role: Primary Care Nurse Name: Hattie Brewster RN Position: [facility] RN Member Role: Primary Care Nurse Name: Yudith Rothman RN Position: [facility] Onco RN Member Role: Primary Care Nurse Name: Kelly Hernandez RN Position: [facility] RN Member Role: Primary Care Nurse Name: Parris Zuluaga RN Position: [facility] RN Member Role: Primary Care Nurse Care Team Related Persons Name: ZENAIDA FLORES Address: [place], [place] Name: TIA RIVERS Address: home [address] [place] [address] Name: JOHANN RETANA Address: [place], [place]
--- OUTSIDE RECORDS SUMMARY | 2023-10-14 16:40 | XMS_ITS | Continuity of Care Document ---
Author Organization [facility] Address [address] [place] [address]- Care Team Providers Care Industrial Tractor Driver Name Role Phone Caitlyn Bowie MD Primary Care Physician [place] [facility] [place] 04/26/21 - 05/26/21 [facility] [address] [place] [address]- Allergies, Adverse Reactions, Alerts Substance Reaction Severity [...]
--- OUTSIDE RECORDS SUMMARY | 2023-10-14 16:40 | XMS_ITS | Continuity of Care Document ---
Author Organization [facility] Address [address] [place] [address]- Care Team Providers Care Labor Economics Teacher Name Role Phone Brennan Burntet MD Primary Care Physician [place] [facility] [place] 09/14/20 - 10/14/20 [facility] [address] [place] [address]- Allergies, Adverse Reactions, Alerts Substance Reaction Severity [...] By Mouth, Daily, Dr. primo Renee at [facility], # 30 tablet, 0 Refills, Maintenance, 01/26/18 [...] Kelly, # 30 tablet, 0 Refills, Maintenance, 08/08/15 9:19:23 EDT, Tablet Start Date: 02/14/15 Status: [...]
--- OUTSIDE RECORDS SUMMARY | 2023-10-14 16:40 | XMS_ITS | Continuity of Care Document ---
Author Organization [facility] Address [address] [place] [address]- Care Team Providers Care Regional Sales Manager Name Role Phone Azeb STARK, Caitlyn Thompson Primary Care Physician [place] [facility] [place] 11/16/21 - 12/16/21 [facility] [address] [place] [address]- Attending Physician: Melissa Morrison Admitting Physician: Melissa Morrison Referring Physician: Melissa Morrison Referring Physician: Kaila Molina Allergies, Adverse Reactions, [...] day, 0 Refills, Maintenance, 11/06/21 12:44:00 EDT, [place], Partialfill upon patient request if the prescription [...] Refills, Maintenance, 11/09/21 9:33:00 EDT, EC Capsule, [facility], Partial fill upon patient request [...]
--- OUTSIDE RECORDS SUMMARY | 2023-10-14 16:40 | XMS_ITS | Continuity of Care Document ---
Author Organization [facility] Address [address] [place] [address]- Care Team Providers Care Research Professor Of Biostatistics Name Role Phone Brennan Burnett MD Primary Care Physician [phone] Encounter [facility] Date(s): 03/06/20 - 06/24/[address] [address] Attending Physician: Brennan Burnett MD Admitting Physician: Brennan Burnett MD Referring Physician: Brennan Burnett MD Allergies, Adverse Reactions, Alerts Substance Reaction Severity Status ciprofloxacin Active barium sulfate Active Voltaren Active Gastrografin [...] By Mouth, Daily, Dr. primo Renee at [facility], # 30 tablet, 0 Refills, Maintenance, 01/26/18 [...]
--- OUTSIDE RECORDS SUMMARY | 2023-10-14 16:40 | XMS_ITS | Continuity of Care Document ---
Author Organization [facility] Address [address] [place] [address]- Care Team Providers Care Water Truck Driver Name Role Phone Caitlyn Bowie MD Primary Care Physician [facility]counter [facility] Date(s): 11/30/22 - 12/30/22 [facility] [address] [place], [place] [address] Allergies, Adverse Reactions, Alerts Substance Reaction Severity Status ciprofloxacin Active gentamicin Active erythromycin Active penicillin 1 Active ipratropium Active morphine Active barium sulfate Active iodinated radiocontrast dyes Active Voltaren Active Zithromax Active Novocain Active Biaxin Active Gastrografin Active Levaquin Avocado Active Avelox Active vancomycin Active busPIRone Feeling of throat ti ghtness Headache Dizziness Active sulfa drugs Active Flagyl Active Bee Stings Active Contrast Dye Active [...] Member Role: Primary Care Nurse Address: Address: [address] [place] [address]- Name: Toyin Doherty RN Position: [facility] RN Member Role: Primary Care Nurse Name: Eben Hernandez NP Position: [facility] Associate Professional Member Role: Lifetime Consulting Provider Address: Address: [address] [place] [address]- Name: Alejandrina Turner RN Position: [facility] RN Member Role: Primary Care Nurse Name: Zoraida Felxi RN Position: [facility] RN Member Role: Primary Care Nurse Name: Daphne Hooker RN Position: [facility] RN Member Role: Primary Care Nurse Name: Nasima Gonzalez RN Position: [facility] RN Suprodney Member Role: Primary Care Nurse Name: Caitlyn Bowie MD Position: [facility] Physician - Primary Care Member Role: PCP Address: Address: [address] [place] [address]- [place] Name: Kiki Abdi RN Position: [facility] RN Member Role: Primary Care Nurse Name: Marry Reza Position: [facility] RN Member Role: Primary Care Nurse Name: Veronica Hurst [place] Position: [facility] [place] Member Role: Lifetime Consulting Physician Name: Maddie Herrera RN Position: [facility] AMB Nurse Member Role: Primary Care Nurse Name: Raegan Baptiste RN Position: [facility] RN Member Role: Primary Care Nurse Name: Svitlana Marcum RN Position: [facility] AMB Nurse Member Role: Primary Care Nurse [...] Care Nurse Name: Katherine Nixon PharmD Position: [facility] Associate Professional Member Role: Lifetime Consulting Provider Address: Address: [address] [place] [address] Name: Daphne Barton RN [facility] [...] Care Nurse Name: Yudith Rothman RN Position: [facility] Onco RN Member Role: Primary Care Nurse Name: Kelly Hernandez RN Position: [facility] RN Member Role: Primary Care Nurse Name: Parris Zuluaga RN Position: [facility] RN Member Role: Primary Care Nurse Care Team Related Persons Name: ZENAIDA FLORES Address: [place], [place] Name: TIA RIVERS Address: [place] [address] Name: JOHANN RETANA Address: home [place], [place]
--- OUTSIDE RECORDS SUMMARY | 2023-10-14 16:41 | XMS_ITS | Continuity of Care Document ---
Author Organization [facility] Address [address] [place] [address]- Care Team Providers Care Health Teacher Name Role Phone Caitlyn Bowie MD Primary Care Physician Encounter [facility] Date(s): 10/22/21 - 10/29/21 [facility] [address] [place] [address]- Attending Physician: Anish Neil MD Admitting Physician: [...] oldest [Reference Range]: 1 Height 160 cm (10/22/21 3:20 PM) Weight 58.3 kg (10/22/21 3:20 PM) Oxygen Saturation [94-100 %] 98 % (10/22/21 3:20 PM) Pulse Rate [55-90 bpm] 79 bpm (10/22/21 3:20 PM) Body Mass Index [18.5-24.99] 22.77 (10/22/21 3:20 PM) Blood Pressure [90-138/55-84 mm Hg] 130/ 62mm Hg (10/22/21 3:20 PM) Mode of Delivery (Oxygen) Room air (10/22/21 3:20 PM) Blood pressure sites Arm, left (10/22/21 3:20 PM) Weight Obtained Via Patient/family state d (10/22/21 3:20 PM) Social History Social History Type Response Smoking Status Never smoker; Tobacc o user in household: No entered on: 04/05/17 Sex
--- OUTSIDE RECORDS SUMMARY | 2023-10-14 16:41 | XMS_ITS | Continuity of Care Document ---
Author Organization [facility] Address [address] [place] [address]- Care Team Providers Care Chip Tuner Name Role Phone Caitlyn Bowie MD Primary Care Physician [phone] Encounter [facility] Date(s): 05/19/22 - 05/26/22 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(Discharge Diagnosis) - 05/19/22 Productive cough(Discharge Diagnosis) - 05/19/22 Attending Physician: Caitlyn Bowie MD Allergies, Adverse [...] disease) from second hand smoke Discharge Diagnosis 05/19/22 Productive cough Discharge Diagnosis 05/19/22 Vital Signs Most recent to oldest [Reference Range]: 1 2 Height 161 cm (05/19/22 1:14 PM) 161 cm (05/19/22 11:02 AM) Weight 60.3 kg (05/19/22 11:02 AM) Oxygen Saturation [94-100 %] 96 % (05/19/22 11:02 AM) Pulse Rate [55-90 bpm] 75 bpm (05/19/22 11:02 AM) Body Mass Index [18.5-24.99 kg/m2] 23.26 kg/m2 (05/19/22 11:02 AM) Blood Pressure [90-138/55-84 mm Hg] 98/6 0mm Hg (05/19/22 1:14 PM) 92/46mm Hg (05/19/22 11:02 AM) Respiratory Rate [16-30 br/min] 16 br/mi n (05/19/22 11:02 AM) Temperature [96.8-100.4 DegF] 96.9 DegF (05/19/22 11:02 AM) Mode of Delivery (Oxygen) Room air (05/19/22 11:02 AM) Blood pressure sites Arm, left (05/19/22 11:02 AM) Temperature Route Temporal (05/19/22 11:02 AM) Weight Obtained Via Standing scale (05/19/22 11:02 AM) Social History Social History Type Response Smoking Status Never smoker; Tobacc o user in household: No entered on: 04/05/17 Sex Note * Yoly Newman: PERFORM, SIGN, VERIFY Event Display: Patient Education/Instruction Authored Date: [id number] [facility] *[facility] Clinical Summary Name CINDA WATSON Age 77 Years 1945 PCP Azeb STARK, Caitlyn Thompson PCP Visit Date 05/19/2022 10:49:00 Patient Instructions HAEMOPHILUS PARAINFLUENZAE- POSITIVE ON SPUTUM CULTURE Additional Instructions: Scheduled Appointments?? Future Appointments ?[facility] ?[address]??[place],??[place],??[address] ?Phone:??[phone]?Fax:??-- ?Appt. Date:??05/20/2022?12:45 PM ?Scheduled Provider:??[facility] US Rm 1 ?*[facility] ?[address]??[place],??[place],??[address] ?Phone:??--?Fax:??-- ?Appt. Date:??06/24/2022?11:00 AM ?Scheduled Provider:??Caitlyn Bowie MD ?[facility] ?[address]??[place],??[place],??[address] ?Phone:??[phone]?Fax:??-- ?Appt. Date:??07/08/2022?1:00 PM ?Scheduled Provider:??[facility] 3D Mammo Rm 2 Follow-Up Instructions ?? Diagnosis Medications: Please continue your medications until treatment is completed or stopped by your provider. Discuss any questions related to medications with your provider. New Medications [facility], [address] [place], [place] [id number], [phone] Lanolin-Mineral Oil Topical (lanolin-mineral oil topical lotion) USE TWICE DAILY. Refills: 0. Next Dose: Medications to Continue [...] tablet) 1 tab(s) Oral Daily. Next Dose: Guaifenesin/Dextromethorphan (dextromethorphan-guaifenesin 10 mg-100 mg/5 mL oral liquid) 10 Milliliter Oral every 4 hours as needed Cough. Refills: 0. Next Dose: levocetirizine (Xyzal 5 mg oral [...] tab(s) Oral twice a day. Next Dose: Montelukast (Singulair 10 mg oral tablet) 1 tab(s) Oral Daily in PM. Dr. Kelly. Next Dose: Multivitamin (B-Complex SR) 1 tab(s) Oral Daily. Next Dose: Omeprazole (omeprazole 40 mg oral enteric coated capsule) 1 capsule Oral Daily as needed. Next Dose: PredniSONE (predniSONE 10 mg oral tablet) 05/14/22 30 mg by mouth for 3 days 05/17/22 20 mg daily for 3 days 05/20/22 10 mg daily for 3 days 05/23/22 5 mg every day. Next Dose: PredniSONE (predniSONE 5 mg oral tablet) 1 tab(s) Oral Daily. START 05/23/22. Next Dose: Rosuvastatin (rosuvastatin 10 mg oral tablet) 1 tab(s) Oral Monday, Monday and Monday. Next Dose: Senna (Senna 8.6 mg oral tablet) 2 tab(s) Oral Daily at Bedtime as needed as needed for constipation. Next Dose: Trazodone (trazodone 50 mg oral tablet) 2 tab(s) Oral Daily at Bedtime. Dr. Kelly. Next Dose: Warfarin (warfarin 1 mg oral tablet) 2 tab(s) Oral Daily. (Cinda want's to test her blood today, changes with INR). Next Dose: Allergy Info:?? Avocado; Shrimp; Mold; Contrast Dye; Bee Stings; Avelox; Levaquin; Gastrografin; Biaxin; Novocain; Flagyl; Zithromax; Voltaren; iodinated radiocontrast dyes; sulfa drugs; barium sulfate; morphine; ipratropium; busPIRone; vancomycin; penicillin; erythromycin; gentamicin; ciprofloxacin Medications Given This Visit Future Orders ?No future orders Vital Signs Height 161 cm Weight 60.3 kg BMI 23.26 kg/m2 Blood Pressure 92 mm Hg/46 mm Hg Temperature 96.9 DegF Pulse Rate 75 bpm Respiratory Rate 16 br/min 02 Sat Mode of Delivery 96 %/Room air You can now view a summary of your hospital visit from the comfort of your home through a free online portal called Mor[employer]sl. Mor.sl is a website that allows you to securely view your medical information including discharge summary, medications and follow-up visits. ??You can alsosend a secure electronic message to your doctor???s office to request appointments, renew medications or just ask a question. You can enroll at [email or web address] or register during your next office visit. [...] primary care provider, you may find a [facility] provider by calling [facility] [employer] [facility] at [phone]. For information about the plan of care [...] Care Team Personnel Name: Val Wynne Position: [facility] Onco RN Member Role: Primary Care Nurse Name: Karen Pittman RN Position: [facility] RN Member Role: Primary Care Nurse Name: Shilpi Mattson Position: Reference Physician Member Role: Primary Care Nurse Address: Address: [address] [place] [address] [address] [place], [place] [address] Name: Toyin Doherty RN Position: [facility] RN Member Role: Primary Care Nurse Name: Eben Hernandez NP Position: [facility] Associate Professional Member Role: Lifetime Consulting Provider Address: Address: [address] [place] [address]- Name: Alejandrina Turner RN Position: S RN Member Role: Primary Care Nurse Name: Zoraida Felix RN Position: S RN Member Role: Primary Care Nurse Name: Daphne Hooker RN Position: [facility] RN Member Role: Primary Care Nurse Name: Nasima Gonzalez RN Position: [facility] RN Supv Member Role: Primary Care Nurse Name: Caitlyn Bowie MD Position: [facility] Primary Care Physician Member Role: PCP Address: Address: [address] [place] [address]- Name: Sheeba García Position: [facility] RN Member Role: Primary Care Nurse Name: Kiki Abdi RN Position: [facility] RN Member Role: Primary Care Nurse Name: Marry Reza Position: [facility] RN Member Role: Primary Care Nurse Name: Veronica Hurst [place] Position: [facility] PCO RN Member Role: Lifetime Consulting Physician Name: Maddie Herrera RN Position: [facility] RN Member Role: Primary Care Nurse Name: Raegan Baptiste RN Position: [facility] RN Member Role: Primary Care Nurse Name: Svitlana Marcum RN Position: [facility] AMB Nurse Member Role: Primary Care Nurse Name: She Pool Position: [facility] RN Member Role: Primary Care Nurse Name: Kaila Latham RN Position: [facility] RN Member Role: Primary Care Nurse Name: Julio C Bahena Position: [facility] RN Member Role: Primary Care Nurse Name: Nasima Heredia RN Position: [facility] RN Member Role: Primary Care Nurse Name: Katherine Nixon PharmD Position: [facility] Associate Professional Member Role: Lifetime Consulting Provider Address: Address: [address] [place] [id number] Name: Daphne Barton RN Position: [facility] RN Member Role: Primary Care Nurse Name: Katherine Long RN Position: [facility] RN Member Role: Primary Care Nurse Name: Norma Serrano RN Position: [facility] RN Member Role: Primary Care Nurse Name: Aurea Kelly RN Position: [facility] RN Member Role: Primary Care Nurse Name: Seven Kelly RN Position: [facility] RN Member Role: Primary Care Nurse Name: Fani Perez RN Position: [facility] RN Member Role: Primary Care Nurse Name: Emely Her Position: [facility] RN Member Role: Primary Care Nurse Name: Yudith Rothman RN Position: [facility] RN Member Role: Primary Care Nurse Name: Parris Zuluaga RN Position: [facility] RN Member Role: Primary Care Nurse Care Team Related Persons Name: ZENAIDA FLORES Address: home [address] [address] Name: TIA RIVERS Address: home [address] [place] [address] Name: JOHANN RETANA Address: [place] [address]
--- OUTSIDE RECORDS SUMMARY | 2023-10-14 16:41 | XMS_ITS | Continuity of Care Document ---
Author Organization [facility] Address [address] [place] [address]- Care Team Providers Care Engraver Machine Name Role Phone Caitlyn Bowie MD Primary Care Physician [phone] [facility]counter [facility] Date(s): 10/11/21 - 11/10/21 [facility] [address] [place], [place] [address] Allergies, Adverse Reactions, Alerts Substance Reaction Severity Status ciprofloxacin Active barium sulfate Active iodinated radiocontrast dyes Active Voltaren Active Flagyl Active gentamicin Active erythromycin Active penicillin 1 Active vancomycin Active busPIRone Feeling of throat ti ghtness Headache Dizziness Active ipratropium Active morphine Active sulfa drugs Active Zithromax Active Gastrografin Active Levaquin Avocado [...] day, 0 Refills, Maintenance, 11/06/21 12:44:00 EDT, [place], Partialfill upon patient request if the prescription [...] Refills, Maintenance, 11/09/21 9:33:00 EDT, EC Capsule, [facility], Partial fill upon patient request [...]
--- OUTSIDE RECORDS SUMMARY | 2023-10-14 16:41 | XMS_ITS | Continuity of Care Document ---
Author Organization [facility] Address [address] [place] [address]- Care Team Providers Care Director Business Development Name Role Phone Caitlyn Bowie MD Primary Care Physician Encounter [facility] Date(s): 09/01/21 - 09/08/21 [facility] [address] [place] [address]- Encounter Diagnosis Epigastric pain(Discharge Diagnosis) - 09/01/21 CHF - Congestive heart failure(Discharge Diagnosis) - 09/01/21 LLQ pain(Discharge Diagnosis) - 09/01/21 Attending Physician: Caitlyn Bowie MD Allergies, Adverse Reactions, Alerts Substance Reaction Severity Status ciprofloxacin Active busPIRone Feeling of throat ti ghtness Headache Dizziness Active ipratropium Active morphine Active barium sulfate Active iodinated radiocontrast dyes Active Voltaren Active Zithromax Active gentamicin Active erythromycin Active penicillin 1 Active vancomycin Active sulfa drugs Active Gastrografin Active Levaquin Avocado Active Flagyl [...] CHF - Congestive heart failure Discharge Diagnosis 09/01/21 Epigastric pain Discharge Diagnosis 09/01/21 LLQ pain Discharge Diagnosis 09/01/21 Vital Signs Most recent to oldest [Reference Range]: 1 Height 160 cm (09/01/21 11:03 AM) Weight 57.9 kg (09/01/21 11:03 AM) Oxygen Saturation [94-100 %] 95 % (09/01/21 11:03 AM) Pulse Rate [55-90 bpm] 76 bpm (09/01/21 11:03 AM) Body Mass Index [18.5-24.99] 22.62 (09/01/21 11:03 AM) Blood Pressure [90-138/55-84 mm Hg] 98/5 8mm Hg (09/01/21 11:03 AM) Temperature [96.8-100.4 DegF] 97.8 DegF (09/01/21 11:03 AM) Mode of Delivery (Oxygen) Room air (09/01/21 11:03 AM) Blood pressure sites Arm, left (09/01/21 11:03 AM) Temperature Route Temporal (09/01/21 11:03 AM) Social History Social History Type Response Smoking Status Never smoker; Tobacc o user in household: No entered on: 04/05/17 Sex
--- OUTSIDE RECORDS SUMMARY | 2023-10-14 16:41 | XMS_ITS | Continuity of Care Document ---
Author Organization [facility] Address [address] [place] [address]- Care Team Providers Care Sealing Machine Operator Name Role Phone Peewee STARK, Sharon Primary Care Physician Encounter [facility] Date(s): 09/05/19 - 09/06/[address] [address]- [facility] Encounter Diagnosis Diverticulitis(Final) - 09/06/19 Discharge Disposition: A-D/C Home Attending Physician: Cici Lemons MD Admitting Physician: Abdon Che MD Referring Physician: Not on Staff, Referring [...] EDT, Solution Start Date: 01/26/18 Status: Ordered cefixime 400 mg oral tablet = 400 mg, By Mouth, Every 24 hours, for 6 days, # 6 tablet, 0 Refills, Acute 09/12/19 14:42:00 EST,09/06/19 14:42:00 EST, Tablet, [facility], 160, cm, 09/06/19 7:35:00 EST, Height, 60.3, kg, 09/06/19 3:23:00 EST, Dry Weight Start Date: 09/06/19 Stop Date: 09/12/19 Status: Ordered Dulcolax Stool Softener = 100 [...] By Mouth, Daily, Dr. primo Renee at [place], # 30 tablet, 0 Refills, Maintenance, 01/26/18 16:36:23 EDT, ER Tablet Start Date: 01/26/18 Status: Ordered metroNIDAZOLE 500 mg oral tablet 1 tablet = 500 mg, By Mouth, Every 8 hours, may take with food to minimize abdominal discomfort, # 18 tablet, 0 Refills, Maintenance, 09/06/19 14:42:00 EST, Tablet, [facility], 160, cm,09/06/19 7:35:00 EST, [...] (supraventricular tachycardia)(Confirmed) Active 1left eye 2lower extrem Results Radiology Reports * Exam Date Time Procedure Performing Provider Status 09/06/19 8:04 AM Chest 2 Views Frontal and Lat Lucía Montalvo; Da (Verified) Notes: (Chest 2 Views Frontal and Lat) Reason For Exam: Hemoptysis RESULT: Chest 2 Views Frontal and Lat Chest 2 Views Frontal and Lat INDICATION/CLINICAL QUESTION: Hemoptysis. Questioning pneumonia. 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 COMPARISON: CXR 12/28/2018. CT of abdomen 09/05/2019. FINDINGS: LINES AND TUBES: None. LUNGS AND PLEURA: Unchanged volume loss in the left lung and fibrotic changes. Small left pleural effusion, consistent with findings in a CT scan of the abdomen and pelvis dated 09/05/2019. HEART, MEDIASTINUM AND PAULIE: Heart is normal in size. Normal mediastinal and hilar contour. BONES AND SOFT TISSUES: No acute abnormality. IMPRESSION: Stable left lower lung atelectasis/fibrosis with small left pleural effusion. I have personally reviewed the images and I agree with this report. WSN: [id number] Dictated By: Rc Shelby MD Dictated Date/Time: 09/06/19 9:51 am Reviewed By: Vamsi Galloway MD Signed By: Vamsi Galloway MD Signed Date/Time: 09/06/19 9:56 am Transcribed By: MART Transcribed Date/Time: 09/06/19 9:16 am Vital Signs Most recent to oldest [Reference Range]: 1 2 3 Height 160 cm (09/06/19 7:35 AM) 160 cm (09/06/19 3:00 AM) Weight 60.3 kg (09/06/19 3:00 AM) 61.6 kg (09/06/19 1:17 AM) 61.6 kg (09/05/19 10:26 PM) Oxygen Saturation [94-100 %] 99 % (09/06/19 7:35 AM) 96 % (09/06/19 3:00 AM) 98 % (09/06/19 1:17 AM) Pulse Rate [55-90 bpm] 75 bpm (09/06/19 8:38 AM) 79 bpm (09/06/19 7:35 AM) 84 bpm (09/06/19 3:00 AM) Body Mass Index [18.5-24.99] 23.55 (09/06/19 3:00 AM) Blood Pressure [90-138/55-84 mm Hg] 115/53mm Hg (09/06/19 8:38 AM) 119/57mm Hg (09/06/19 7:35 AM) 138/67mm Hg (09/06/19 3:00 AM) Respiratory Rate [16-30 br/min] 18 br/min (09/06/19 7:35 AM) 18 br/min (09/06/19 3:00 AM) 14 br/min *L* (09/06/19 1:17 AM) Temperature [96.8-100.4 DegF] 98.5 DegF (09/06/19 7:35 AM) 97.8 DegF (09/06/19 3:00 AM) 98.8 DegF (09/05/19 6:19 PM) Liters per Minute 0 L/min (09/05/19 6:19 PM) Mode of Delivery (Oxygen) Room air (09/06/19 7:35 AM) Room air (09/06/19 3:00 AM) Room air (09/06/19 1:17 AM) Blood pressure sites Arm, right (09/06/19 7:35 AM) Arm, right (09/06/19 3:00 AM) Arm, left (09/06/19 1:17 AM) Temperature Route Oral (09/06/19 7:35 AM) Oral (09/06/19 3:00 AM) Oral (09/05/19 6:19 PM) Dry Weight 60.3 kg (09/06/19 3:00 AM) 61.6 kg (09/06/19 1:17 AM) 61.6 kg (09/05/19 10:26 PM) Weight Obtained Via Standing scale (09/06/19 3:00 AM) Standing scale (09/05/19 6:19 PM) Dry Weight Obtained Via Standing scale (09/05/19 6:19 PM) Sensory deficits None (09/06/19 3:00 AM) Mobility assistance Independent (09/06/19 3:00 AM) Social History Social History Type Response Smoking Status Never smoker; Tobacc o user in household: No entered on: 04/05/17 Sex Female
--- OUTSIDE RECORDS SUMMARY | 2023-10-14 16:41 | XMS_ITS | Continuity of Care Document ---
Author Organization [facility] Address [address] [place] [address]- Care Team Providers Care Easement Man Name Role Phone Brennan Burnett MD Primary Care Physician Encounter [facility] Date(s): 09/23/20 - 10/23/20 [facility] [address] [place] [address] Allergies, Adverse Reactions, Alerts Substance [...] By Mouth, Daily, Dr. primo Renee at [place], # 30 tablet, 0 Refills, Maintenance, 01/26/18 [...]
--- OUTSIDE RECORDS SUMMARY | 2023-10-14 16:41 | XMS_ITS | Continuity of Care Document ---
Author Organization [facility] Address [address] [place] [address]- Care Team Providers Care Creative Resource Manager Name Role Phone Caitlyn Bowie MD Primary Care Physician Encounter [facility] Date(s): 07/05/21 - 08/04/21 [facility] [address] [place], [place] [address] Allergies, Adverse Reactions, Alerts Substance [...] opioid drug. Start Date: 07/03/21 Status: Ordered omeprazole 40 mg oral enteric [...]
--- OUTSIDE RECORDS SUMMARY | 2023-10-14 16:41 | XMS_ITS | Continuity of Care Document ---
Author Organization [facility] Address [address] [place] [address]- Care Team Providers Care Accredited Farm Manager Name Role Phone Caitlyn Bowie MD Primary Care Phys[id number] Date([facility] 04/19/21 - 07/13/21 [facility] [address] [place] [address]- Discharge Disposition: A-D/C Home Attending Physician: Samira STARK(Hem/Onc), Christo Giles Admitting Physician: Samira STARK(Hem/Onc)Christo Referring Physician: Caitlyn Bowie MD Allergies, Adverse [...] Start Date: 07/03/21 Status: Ordered nystatin topical [id number] u/gm powder 1 application, Topically, 3 times [...] oldest [Reference Range]: 1 Height 160 cm (05/13/21 10:28 AM) Weight 58.9 kg (05/13/21 10:28 AM) Oxygen Saturation [94-100 %] 97 % (05/13/21 10:28 AM) Pulse Rate [55-90 bpm] 91 bpm *H* (05/13/21 10:28 AM) Body Mass Index [18.5-24.99] 23.01 (05/13/21 10:28 AM) Blood Pressure [90-138/55-84 mm Hg] 143/ 70mm Hg *H* (05/13/21 10:28 AM) Temperature [96.8-100.4 DegF] 97.9 DegF (05/13/21 10:28 AM) Blood pressure sites Arm, right (05/13/21 10:28 AM) Temperature Route Temporal (05/13/21 10:28 AM) Dry Weight 58.9 kg (05/13/21 10:28 AM) Weight Obtained Via Standing scale (05/13/21 10:28 AM) Dry Weight Obtained Via Standing scale (05/13/21 10:28 AM) Social History Social History Type Response Smoking Status Never smoker; Tobacc o user in household: No entered on: 04/05/17 Sex
--- OUTSIDE RECORDS SUMMARY | 2023-10-14 16:41 | XMS_ITS | Continuity of Care Document ---
Author Organization [facility] Address [address] [place] [address]- Care Team Providers Care Hand Rigger Name Role Phone Azeb STARK, Caitlyn Thompson Primary Care Physician Encounter [facility] Date(s): 04/01/21 - 05/01/21 [facility] [address] [place] [address]- Allergies, Adverse Reactions, Alerts Substance Reaction Severity [...] 1 Refills, Maintenance, 02/24/21 16:22:00 EDT, Tablet, [facility], 134.6, cm, 02/24/21 [...]
--- OUTSIDE RECORDS SUMMARY | 2023-10-14 16:41 | XMS_ITS | Continuity of Care Document ---
Author Organization [facility] Address [address] [place] [address]- Care Team Providers Care Bathroom Tiling Professional Name Role Phone Caitlyn Bowie MD Primary Care Physician Encounter [facility] Date(s): 08/07/23 - 09/06/23 [facility] [address] [place], [place] [address] Allergies, Adverse Reactions, Alerts Substance Reaction [...] 2 times a day, Refills 0, Maintenance, 12/25/21 12:28:00 EST, ; Start Date: 07/03/21 Status: [...] Name: Karen Pittman RN Position: [facility] RN Member Role: Primary Care Nurse Name: Shilpi Mattson Position: Reference Physician Member Role: Primary Care Nurse Address: Address: [address] [place] [address]- [place] Name: Toyin Doherty RN Position: [facility] RN Member Role: Primary Care Nurse Name: Eben Hernandez NP Position: [facility] Associate Professional Member Role: Lifetime Consulting Provider Address: Address: [address] [place] [address]- [place] Name: Alejandrina Turner RN Position: [facility] RN Member Role: Primary Care Nurse Name: Zoraida Felix RN Position: [facility] ED RN W/OE and Tasks Member Role: Primary Care Nurse Name: Jaye Harley Position: [facility] MA Utility Pipe Layer Member Role: Waste Specialist Name: Daphne Hooker RN Position: [facility] RN Member Role: Primary Care Nurse Name: Nasima Gonzalez RN Position: [facility] RN Supv Member Role: Primary Care Nurse Name: Caitlyn Bowie MD Position: [facility] Physician - Primary Care Member Role: PCP Address: Address: [address] [address]- [place] Name: Kiki Abdi RN Position: [facility] RN Member Role: Primary Care Nurse Name: Marry Reza Position: [facility] RN Member Role: Primary Care Nurse Name: Veronica Hurst MA Position: [facility] AMB [place] Member Role: Lifetime Consulting Physician Name: Maddie Herrera RN Position: [facility] AMB Nurse Member Role: Primary Care Nurse Name: Yudith Herrera RN Position: [facility] Onco RN Member Role: Primary Care Nurse Name: Raegan Baptiste RN Position: [facility] RN Member Role: Primary Care Nurse Name: She Pool Position: [facility] RN Member Role: Primary Care Nurse Name: Kaila Latham RN Position: [facility] RN Member Role: Primary Care Nurse Name: Julio C Bahena Position: [facility] RN Member Role: Primary Care Nurse Name: Nasima Heredia RN Position: [facility] RN Member Role: Primary Care Nurse Name: Katherine Nixon PharmD Position: [facility] Associate Professional Member Role: Lifetime Consulting Provider Address: Address: [address] [facility] [place] [address]- Name: Daphne Barton RN Position: S RN Member Role: Primary Care Nurse Name: Katherine Long RN Position: [facility] RN Member Role: Primary Care Nurse Name: Norma Serrano RN Position: S RN Member Role: Primary Care Nurse Name: Seven Kelly RN Position: [facility] ED RN W/OE and Tasks Member Role: Primary Care Nurse Name: Fani Perez RN Position: [facility] RN Member Role: Primary Care Nurse Name: Hattie Brewster RN Position: [facility] RN Member Role: Primary Care Nurse Name: Kelly Hernandez RN Position: [facility] RN Member Role: Primary Care Nurse Name: Pallavi Wylie LPN Position: [facility] RN Member Role: Primary Care Nurse Name: Parris Zuluaga RN Position: [facility] RN Member Role: Primary Care Nurse Care Team Related Persons Name: MARKZENAIDA ADAIR Address: [place] [address] Name: TIA RIVERS Address: [place] [address] Name: JOHANN RETANA Address: [place] [address]
--- OUTSIDE RECORDS SUMMARY | 2023-10-14 16:41 | XMS_ITS | Continuity of Care Document ---
Author Organization [facility] Address [address] [place] [address]- Care Team Providers Care Blood Bank Assistant Name Role Phone Peewee STARK, Sharon Primary Care Physician Encounter [facility] Date(s): 06/17/19 - 06/17/19 [facility] [address] [place] [address]- [facility] Discharge Disposition: A-D/C Home Attending Physician: Cristofer Spivey MD Admitting Physician: [...] By Mouth, Daily, Dr. primo Renee at [place], # 30 tablet, 0 Refills, Maintenance, 01/26/18 [...]
--- OUTSIDE RECORDS SUMMARY | 2023-10-14 16:42 | XMS_ITS | Continuity of Care Document ---
Author Organization [facility] Address [address] [place] [address]- Care Team Providers Care Assembler Convertible Top Name Role Phone Caitlyn Bowie MD Primary Care Physician Encounter [facility] Date(s): 04/19/22 - 05/19/22 [facility] [address] [place], [place] [address] Allergies, Adverse Reactions, Alerts Substance Reaction Severity Status ciprofloxacin Active ipratropium Active barium sulfate Active Zithromax Active gentamicin Active erythromycin Active penicillin 1 Active vancomycin Active busPIRone Feeling of throat ti ghtness Headache Dizziness Active morphine Active sulfa drugs Active iodinated radiocontrast dyes Active Voltaren Active Gastrografin Active Levaquin Avocado Active Flagyl [...] Care Team Personnel Name: Val Wynne Position: [facility] Onco RN Member Role: Primary Care Nurse Name: Karen Pittman RN Position: S RN Member Role: Primary Care Nurse Name: Shilpi Mattson Position: Reference Physician Member Role: Primary Care Nurse Address: Address: [address] [place] [address] [address] [place] [address]- Name: Toyin Doherty RN Position: S RN Member Role: Primary Care Nurse Name: Eben Hernandez NP Position: [facility] Associate Professional Member Role: Lifetime Consulting Provider Address: Address: [address] [place] [address]- [place] Name: Alejandrina Turner RN Position: [facility] RN Member Role: Primary Care Nurse Name: Zoraida Felix RN Position: [facility] RN Member Role: Primary Care Nurse Name: Daphne Hooker RN Position: [facility] RN Member Role: Primary Care Nurse Name: Nasima Gonzalez RN Position: [facility] RN Supv Member Role: Primary Care Nurse Name: Caitlyn Bowie MD Position: [facility] Primary Care Physician Member Role: PCP Address: Address: [address] [place] [address]- Name: Sheeba García Position: [facility] RN Member Role: Primary Care Nurse Name: Kiki Abdi RN Position: [facility] RN Member Role: Primary Care Nurse Name: Marry Reza Position: [facility] RN Member Role: Primary Care Nurse Name: Veronica Hurst [place] Position: [facility] PCO RN Member Role: Lifetime Consulting Physician Name: Maddie Herrera RN Position: [facility] RN Member Role: Primary Care Nurse Name: Raegan Baptiste RN Position: [facility] RN Member Role: Primary Care Nurse Name: Svitlana Marcum RN Position: [facility] AMB Nurse Member Role: Primary Care Nurse Name: She Pool Position: [facility] RN Member Role: Primary Care Nurse Name: Kaila Latham RN Position: [facility] RN Member Role: Primary Care Nurse Name: Julio C Bahena Position: [facility] RN Member Role: Primary Care Nurse Name: Nasima Heredia RN Position: [facility] RN Member Role: Primary Care Nurse Name: Katherine Nixon PharmD Position: [facility] Associate Professional Member Role: Lifetime Consulting Provider Address: Address: [address] [place] [address]- Name: Daphne Barton RN Position: [facility] RN Member Role: Primary Care Nurse Name: Katherine Long RN Position: [facility] RN Member Role: Primary Care Nurse Name: Norma Serrano RN Position: [facility] RN Member Role: Primary Care Nurse Name: Aurea Kelly RN Position: [facility] RN Member Role: Primary Care Nurse Name: Seven Kelly RN Position: [facility] RN Member Role: Primary Care Nurse Name: Fani Perez RN Position: [facility] RN Member Role: Primary Care Nurse Name: Emely Her Position: S RN Member Role: Primary Care Nurse Name: Yudith Rothman RN Position: S RN Member Role: Primary Care Nurse Name: Parris Zuluaga RN Position: S RN Member Role: Primary Care Nurse Care Team Related Persons Name: ZENAIDA FLORES Address: home [address] [place] [address] Name: TIA RIVERS Address: home [address] [place] [address] Name: JOHANN RETANA Address: [place] [address]
--- OUTSIDE RECORDS SUMMARY | 2023-10-14 16:42 | XMS_ITS | Continuity of Care Document ---
Author Organization [facility] Address [address] [place] [address]- Care Team Providers Care Hvac Residential Service Technician Name Role Phone Caityln Bowie MD Primary Care Physician Encounter [facility] Date(s): 01/06/23 - 02/05/23 [facility] [address] [place] [address]- Allergies, Adverse Reactions, Alerts Substance Reaction Severity [...] 0 Refills, Maintenance, 09/09/22 11:47:00EST, [facility], Partial fill upon patient request [...] Care Team Personnel Name: Val Wynne Position: [facility] Onco RN Member Role: Primary Care Nurse Name: Karen Pittman RN Position: [facility] RN Member Role: Primary Care Nurse Name: Shilpi Mattson Position: Reference Physician Member Role: Primary Care Nurse Address: Address: [address] [place] [address] Name: Toyin Doherty RN Position: [facility] RN Member Role: Primary Care Nurse Name: Eben Hernandez NP Position: [facility] Associate Professional Member Role: Lifetime Consulting Provider Address: Address: [address] [place] [address]- Name: Alejandrina Turner RN Position: [facility] RN Member Role: Primary Care Nurse Name: Zoraida Felix RN Position: [facility] RN Member Role: Primary Care Nurse Name: Daphne Hooker RN Position: [facility] RN Member Role: Primary Care Nurse Name: Nasima Gonzalez RN Position: [facility] RN Supv Member Role: Primary Care Nurse Name: Caitlyn Bowie MD Position: [facility] Physician - Primary Care Member Role: PCP Address: Address: [address], [place] [address]- Name: Kiki Abdi RN Position: [facility] RN Member Role: Primary Care Nurse Name: Marry Reza Position: [facility] RN Member Role: Primary Care Nurse Name: Veronica Hurst MA Position: [facility] S[place] Member Role: Lifetime Consulting Physician Name: Maddie Herrera RN Position: [facility] AMB Nurse Member Role: Primary Care Nurse Name: Raegan Baptiste RN Position: [facility] RN Member Role: Primary Care Nurse Name: Svitlana Marcum RN Position: [facility] AMB Nurse Member Role: Primary Care Nurse Name: She Pool Position: [facility] RN Member Role: Primary Care Nurse Name: Kaila Latham RN Position: [facility] RN Member Role: Primary Care Nurse Name: Julio C Bahena Position: [facility] RN Member Role: Primary Care Nurse Name: Nasima Heredia RN Position: [facility] RN Member Role: Primary Care Nurse Name: Katherine Nixon PharmD Position: [facility] Associate Professional Member Role: Lifetime Consulting Provider Address: Address: [address] [place] [address]- Name: Daphne Barton RN Position: [facility] RN Member Role: Primary Care Nurse Name: Katherine Logn RN Position: [facility] RN Member Role: Primary Care Nurse Name: Norma Serrano RN Position: [facility] RN Member Role: Primary Care Nurse Name: Seven Kelly RN Position: [facility] RN Member Role: Primary Care Nurse Name: Fani Perez RN Position: [facility] RN Member Role: Primary Care Nurse Name: Hattie Brewster RN Position: [facility] RN Member Role: Primary Care Nurse Name: Yudith Rothman RN Position: [facility] Onclaila RN Member Role: Primary Care Nurse Name: Kelly Hernandez RN Position: [facility] RN Member Role: Primary Care Nurse Name: Parris Zuluaga RN Position: [facility] RN Member Role: Primary Care Nurse Care Team Related Persons Name: ZENAIDA FLORES Address: [place], [place] Name: TIA RIVERS Address: [place] [address] Name: JOHANN RETANA Address: [place], [place]
--- OUTSIDE RECORDS SUMMARY | 2023-10-14 16:42 | XMS_ITS | Continuity of Care Document ---
Author Organization [facility] Address [address] [place] [address]- Care Team Providers Care Community Living Specialist Name Role Phone Caitlyn Bowie MD Primary Care Physician [phone] Encounter [facility] Date(s): 06/29/23 - 07/29/23 [facility] [address] [place], [place] [address] Allergies, Adverse Reactions, Alerts Substance [...] Care Team Personnel Name: Val Wynne Position: [facility] Onco RN Member Role: Primary Care Nurse Name: Karen Pittman RN Position: [facility] RN Member Role: Primary Care Nurse Name: Shilpi Mattson Position: Reference Physician Member Role: Primary Care Nurse Address: Address: [address] [place] [address] Name: Toyin Doherty RN Position: [facility] RN Member Role: Primary Care Nurse Name: Eben Hernandez NP Position: [facility] Associate Professional Member Role: Lifetime Consulting Provider Address: Address: [address] [place] [address] Name: Alejandrina Turner RN Position: [facility] RN Member Role: Primary Care Nurse Name: Zoraida Felix RN Position: [facility] ED RN W/OE and Tasks Member Role: Primary Care Nurse Name: Daphne Hooker RN Position: [facility] RN Member Role: Primary Care Nurse Name: Nasima Gonzalez RN Position: [facility] RN Supv Member Role: Primary Care Nurse Name: Caitlyn Bowie MD Position: [facility] Physician - Primary Care Member Role: PCP Address: Address: [address] [place] [address]- Name: Kiki Abdi RN Position: [facility] RN Member Role: Primary Care Nurse Name: Marry Reza Position: S RN Member Role: Primary Care Nurse Name: Veronica Hurst MA Position: [facility] SALLY MA Member Role: Lifetime Consulting Physician Name: Maddie Herrera RN Position: [facility] AMB Nurse Member Role: Primary Care Nurse Name: Yudith Herrera RN Position: [facility] Onco RN Member Role: Primary Care Nurse Name: Raegan Baptiste RN Position: [facility] RN Member Role: Primary Care Nurse Name: She Pool Position: S RN Member Role: Primary Care Nurse Name: Kaila Latham RN Position: [facility] RN Member Role: Primary Care Nurse Name: Julio C Bahena Position: S RN Member Role: Primary Care Nurse Name: Nasima Heredia RN Position: [facility] RN Member Role: Primary Care Nurse Name: Katherine Nixon PharmD Position: [facility] Associate Professional Member Role: Lifetime Consulting Provider Address: Address: [address] [place] [address]- Name: Daphne Barton RN Position: [facility] RN Member Role: Primary Care Nurse Name: Katherine Long RN Position: [facility] RN Member Role: Primary Care Nurse Name: Norma Serrano RN Position: [facility] RN Member Role: Primary Care Nurse Name: aFni Perez RN Position: S RN Member Role: Primary Care Nurse Name: Hattie Brewster RN Position: [facility] RN Member Role: Primary Care Nurse Name: Kelly Hernandez RN Position: [facility] RN Member Role: Primary Care Nurse Name: Pallavi Wylie LPN Position: [facility] RN Member Role: Primary Care Nurse Name: Parris Zuluaga RN Position: [facility] RN Member Role: Primary Care Nurse Care Team Related Persons Name: ZENAIDA FLORES Address: [place], [place] Name: TIA RIVERS Address: [place] [address] Name: JOHANN RETANA Address: [place], [place]
--- OUTSIDE RECORDS SUMMARY | 2023-10-14 16:42 | XMS_ITS | Continuity of Care Document ---
Author Organization [facility] Address [address] [place] [address]- Care Team Providers Care Structural Iron Worker Name Role Phone Caitlyn Bowie MD Primary Care Physician Encounter [facility] Date(s): 05/17/23 - 05/24/23 [facility] [address] [place], [place] 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(Discharge Diagnosis) - 05/17/23 Coronary artery disease(Discharge Diagnosis) - 05/17/23 HTN (hypertension)(Discharge Diagnosis) - 05/17/23 Antiphospholipid syndrome(Discharge Diagnosis) - 05/17/23 Anxiety(Discharge Diagnosis) - 05/17/23 Attending Physician: Caitlyn Bowie MD Allergies, Adverse Reactions, Alerts Substance Reaction Severity Status ciprofloxacin Active clindamycin throat tightening Active vancomycin Active busPIRone Feeling of throat ti ghtness Headache Dizziness Active barium sulfate Active sulfa drugs Active iodinated radiocontrast dyes Active Voltaren Active gentamicin Active erythromycin Active penicillin 1 Active ipratropium Active morphine Active Zithromax Active Novocain Active Biaxin Active Gastrografin Active Levaquin Avocado Active Avelox Active Bee Stings Active Contrast Dye Active Avocado Active Flagyl Active Mold Active Shrimp Active 1Allergy testing [...] CHF - Congestive heart failure Discharge Diagnosis 05/17/23 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 Discharge Diagnosis 05/17/23 Coronary artery disease Discharge Diagnosis 05/17/23 HTN (hypertension) Discharge Diagnosis 05/17/23 Antiphospholipid syndrome Discharge Diagnosis 05/17/23 Anxiety Discharge Diagnosis 05/17/23 Vital Signs Most recent to oldest [Reference Range]: 1 Height 160 cm (05/17/23 2:04 PM) Weight 60.2 kg (05/17/23 2:04 PM) Oxygen Saturation [94-100 %] 97 % (05/17/23 2:04 PM) Pulse Rate [55-90 bpm] 87 bpm (05/17/23 2:04 PM) Body Mass Index [18.5-24.99 kg/m2] 23.52 kg/m2 (05/17/23 2:04 PM) Blood Pressure [90-138/55-84 mm Hg] 114/ 62mm Hg (05/17/23 2:04 PM) Temperature [96.8-100.4 DegF] 98.0 DegF (05/17/23 2:04 PM) Mode of Delivery (Oxygen) Room air (05/17/23 2:04 PM) Blood pressure sites Arm, right (05/17/23 2:04 PM) Temperature Route Temporal (05/17/23 2:04 PM) Weight Obtained Via Standing scale (05/17/23 2:04 PM) Social History Social History Type Response Smoking Status Never smoker; Tobacc o user in household: No entered on: 04/05/17 Sex Female Note * Lou Escobar: PERFORM, SIGN, VERIFY Event Display: Patient Education/Instruction Authored Date: [id number] [facility] Clinical Summary Name CINDA WATSON Age 78 Years 1945 PCP Caitlyn Bowie MD PCP Visit Date 05/17/2023 13:51:00 Additional Instructions: Scheduled Appointments?? Future Appointments ?*No??[facility] [address]??[place],??[place],??[address] ?Phone:??--?Fax:??-- ?Appt. Date:??06/29/2023?11:00 AM ?Scheduled Provider:??Caitlyn Bowie MD Follow-Up Instructions ?? Diagnosis Medications: Please continue your medications until treatment is completed or stopped by your provider. Discuss any questions related to medications with your provider. Medications to Continue Taking That Have Changed These medications were not printed or sent to your pharmacy - Diazepam (diazepam 5 mg oral tablet) TAKE ONE-HALF TABLET BY MOUTH FOUR TIMES A DAY NEEDED FORANXIETY AND SLEEP. Refills: 5. Next Dose: - Diazepam (diazepam 5 mg oral tablet) 1/2 tab 4 times per day; as needed anxiety & sleep. Refills: 1. Next Dose: Medications to Continue with No Changes These medications were not printed or sent to your pharmacy Albuterol (albuterol 0.083% inhalation solution) 3 Milliliter Inhalation every 6 hours as needed for wheezing. Next Dose: Albuterol (Ventolin HFA 108 mcg/inh inhalation aerosol with adapter) 2 puff(s) Inhalation every 6 hours as needed Wheezing/Shortness of Breath. Next Dose: Docusate (docusate sodium 100 mg [...] Dose: No Longer Take the Following Medications Baclofen (baclofen 10 mg oral tablet) 1/2 to 1 tablet twice daily for pain as needed; as needed Pain , Moderate. Refills: 0. Allergy Info:?? Avocado; Shrimp; Mold; Contrast Dye; Bee Stings; Avelox; Levaquin; Gastrografin; Biaxin; Novocain; Flagyl; Zithromax; Voltaren; iodinated radiocontrast dyes; sulfa drugs; barium sulfate; morphine; ipratropium; busPIRone; vancomycin; penicillin; erythromycin; clindamycin; gentamicin; ciprofloxacin Medications Given This Visit Future Orders ?No future orders Vital Signs Height 160 cm Weight 60.2 kg BMI 23.52 kg/m2 Blood Pressure 114 mm Hg/62 mm Hg Temperature 98.0 DegF Pulse Rate 87 bpm Respiratory Rate 02 Sat Mode of Delivery 97 %/Room air You can now view a summary of your hospital visit from the comfort of your home through a free online portal called [email or web address] is a website that allows you to securely view your medical information including discharge summary, medications and follow-up visits. ??You can alsosend a secure electronic message to your doctor???s office to request appointments, renew medications or just ask a question. You can enroll at [email or web address] or register during your next office visit. [...] primary care provider, you may find a [facility] provider by calling [facility] [facility] at [phone]. [facility], in keeping with [facility] guidance, no longer requires face masks [...] Care Team Personnel Name: Val Wynne Position: [facility] Onco RN Member Role: Primary Care Nurse Name: Karen Pittman RN Position: [facility] RN Member Role: Primary Care Nurse Name: Shilpi Mattson Position: Reference Physician Member Role: Primary Care Nurse Address: Address: [address] [place] [address]- [place] Name: Toyin Doherty RN Position: [facility] RN Member Role: Primary Care Nurse Name: Eben Hernandez NP Position: [facility] Associate Professional Member Role: Lifetime Consulting Provider Address: Address: [address] [place] [address]- [place] Name: Alejandrina Turner RN Position: [facility] RN Member Role: Primary Care Nurse Name: Zoraida Felix RN Position: [facility] ED RN W/OE and Tasks Member Role: Primary Care Nurse Name: Daphne Hooker RN Position: [facility] RN Member Role: Primary Care Nurse Name: Nasima Gonzalez RN Position: [facility] RN Supv Member Role: Primary Care Nurse Name: Caitlyn Bowie MD Position: [facility] Physician - Primary Care Member Role: PCP Address: Address: [address] [place] [address]- [place] Name: Kiki Abdi RN Position: [facility] RN Member Role: Primary Care Nurse Name: Marry Reza Position: [facility] RN Member Role: Primary Care Nurse Name: Veronica Hurst MA Position: [facility] SALLY MA Member Role: Lifetime Consulting Physician Name: Yudith Ruiz RN Position: [facility] Onco RN Member Role: Primary Care Nurse Name: Maddie Herrera RN Position: [facility] AMB Nurse Member Role: Primary Care Nurse Name: Raegan Baptiste RN Position: [facility] RN Member Role: Primary Care Nurse Name: She Pool Position: [facility] RN Member Role: Primary Care Nurse Name: Kaila Latham RN Position: [facility] RN Member Role: Primary Care Nurse Name: Julio C Bahena Position: [facility] RN Member Role: Primary Care Nurse Name: Nasima Heredia RN Position: [facility] ED RN W/OE and Tasks Member Role: Primary Care Nurse Name: Katherine Nixon PharmD Position: [facility] Associate Professional Member Role: Lifetime Consulting Provider Address: Address: [address] [place] [address] Name: Daphne Barton RN Position: [facility] RN Member Role: Primary Care Nurse Name: Katherine Long RN Position: [facility] RN Member Role: Primary Care Nurse Name: Norma Serrano RN Position: [facility] RN Member Role: Primary Care Nurse Name: Seven Kelly RN Position: [facility] RN Member Role: Primary Care Nurse Name: Fani Perez RN Position: [facility] RN Member Role: Primary Care Nurse Name: Hattie Brewster RN Position: [facility] RN Member Role: Primary Care Nurse Name: Kelly Hernandez RN Position: [facility] RN Member Role: Primary Care Nurse Name: Pallavi Wylie LPN Position: [facility] RN Member Role: Primary Care Nurse Name: Parris Zuluaga RN Position: [facility] RN Member Role: Primary Care Nurse Care Team Related Persons Name: ZENAIDA FLORES Address: [place], [place] Name: TIA RIVERS Address: [place] [address] Name: JOHANN RETANA Address: [place], [place]
--- OUTSIDE RECORDS SUMMARY | 2023-10-14 16:42 | XMS_ITS | Continuity of Care Document ---
Author Organization [facility] Address [address] [facility], [address] Floor, [address] [place] [address]- Care Team Providers Care Side Gluer Name Role Phone Caitlyn Bowie MD Primary Care Physician [facility]counter [facility] Date(s): 05/25/23 - 06/24/23 [facility] [address], [address] Floor, [address] [place] [address] Allergies, Adverse Reactions, Alerts Substance [...] Name: Karen Pittman RN Position: [facility] RN Member Role: Primary Care Nurse Name: Shilpi Mattson Position: Reference Physician Member Role: Primary Care Nurse Address: Address: [address] [place] [address]- Name: Toyin Doherty RN Position: [facility] RN Member Role: Primary Care Nurse Name: Eben Hernandez NP Position: [facility] Associate Professional Member Role: Lifetime Consulting Provider Address: Address: [address] [place] [address]- [place] Name: Alejandrina Turner RN Position: [facility] [...] Primary Care Member Role: PCP Address: Address: [address] [place] [address]- [place] Name: Kiki Abdi RN Position: S RN Member Role: Primary Care Nurse Name: Marry Reza Position: S RN Member Role: Primary Care Nurse Name: Veronica Hurst MA Position: [facility] SALLY MA Member Role: Lifetime Consulting Physician [...] Role: Lifetime Consulting Provider Address: Address: [address] [place] [address] Name: Daphne Barton RN [facility] [...] Team Related Persons Name: ZENAIDA FLORES Address: [place] [address] Name: TIA RIVERS Address: [place] [address] Name: JOHANN RETANA Address: [place], [place]
--- OUTSIDE RECORDS SUMMARY | 2023-10-14 16:42 | XMS_ITS | Continuity of Care Document ---
Author Organization [facility] Address [address] [place] [address]- Care Team Providers Care Client Engagement Manager Name Role Phone Brennan Burnett MD Primary Care Physician Encounter [facility] Date(s): 07/28/20 - 11/01/[address] [facility] [address] [place] [address]- Attending Physician: Joe Servin MD Admitting Physician: Joe Servin MD Allergies, Adverse Reactions, Alerts Substance Reaction Severity Status ciprofloxacin Active gentamicin Active erythromycin Active penicillin 1 Active vancomycin Active morphine Active barium sulfate Active Voltaren Active Flagyl Active Novocain Active Biaxin Active Gastrografin Active Levaquin Avocado Active Bee Stings Active sulfa drugs Active iodinated radiocontrast dyes Active Zithromax Active Avelox Active Contrast Dye Active Mold Active Shrimp [...] By Mouth, Daily, Dr. primo Renee at [place], # 30 tablet, 0 Refills, Maintenance, 01/26/18 [...]
--- OUTSIDE RECORDS SUMMARY | 2023-10-14 16:42 | XMS_ITS | Continuity of Care Document ---
Author Organization [facility] Address [address] [place] [address]- Care Team Providers Care Dish Room Worker Name Role Phone Brennan Burnett MD Primary Care Physician [place] [facility] [place] 01[place]08[place]21 - 02/07/21 [facility] [address] [place] [address]- Allergies, Adverse Reactions, Alerts Substance Reaction Severity [...] times a day, Dr. primo Renee at [place], per pt, # 30 tablet, 0 Refills, [...]
--- OUTSIDE RECORDS SUMMARY | 2023-10-14 16:43 | XMS_ITS | Continuity of Care Document ---
Author Organization [facility] Address [address] [place] [address]- Care Team Providers Care Acupuncture Physician Name Role Phone Caitlyn Bowie MD Primary Care Physician [place] [facility] 02/16/23 - 03/18/23 [facility] [address] [place], [place] [address] Attending Physician: Melissa Morrison Admitting Physician: [...] Luis rded influenza virus vaccine, inactivated 05/15/21 Ulis rded influenza virus vaccine, inactivated 04/27/20 Luis [...] Sex Female Cardiology * Event Display: Non Cardiovascular Results Authored Date: * Event Display: Non Cardiovascular Results Authored Date: * Event Display: Stress Worksheet Office Visit Authored Date: Radiology * Event Display: MRI Abdomen, Non- Authored Date: Patient Care team information Care Team Personnel Name: Val Wynne Position: [facility] Onco RN Member Role: Primary Care Nurse Name: Karen Pittman RN Position: [facility] RN Member Role: Primary Care Nurse Name: Shilpi Mattson Position: Reference Physician Member Role: Primary Care Nurse Address: Address: [address] [place] [address]- Name: Toyin Doherty RN Position: S RN Member Role: Primary Care Nurse Name: Eben Hernandez NP Position: [facility] Associate Professional Member Role: Lifetime Consulting Provider Address: Address: [address] [place] [address]- Name: Alejandrina Turner RN Position: [facility] RN Member Role: Primary Care Nurse Name: Zoraida Felix RN Position: [facility] RN Member Role: Primary Care Nurse Name: Daphne Hooker RN Position: [facility] RN Member Role: Primary Care Nurse Name: Nasima Gonzalez RN Position: [facility] RN Supv Member Role: Primary Care Nurse Name: Caitlyn Bowie MD Position: [facility] Physician - Primary Care Member Role: PCP Address: Address: [address] [place] [address]- [place] Name: Kiki Abdi RN Position: [facility] RN Member Role: Primary Care Nurse Name: Marry Reza Position: [facility] RN Member Role: Primary Care Nurse Name: Veronica Hurst MA Position: [facility] SALLY MA Member Role: Lifetime Consulting Physician Name: Maddie Herrera RN Position: [facility] AMB Nurse Member Role: Primary Care Nurse Name: Raegan Baptiste RN Position: [facility] RN Member Role: Primary Care Nurse Name: She Pool Position: [facility] RN Member Role: Primary Care Nurse Name: Kaila Latham RN Position: [facility] RN Member Role: Primary Care Nurse Name: Julio C Bahena Position: [facility] RN Member Role: Primary Care Nurse Name: Nasima Heredia RN Position: [facility] RN Member Role: Primary Care Nurse Name: Katherine Nixon PharmD Position: [facility] Associate Professional Member Role: Lifetime Consulting Provider Address: Address: [address] [place] [address]- Name: Daphne Barton RN Position: [facility] RN Member Role: Primary Care Nurse Name: Katherine Long RN Position: [facility] RN Member Role: Primary Care Nurse Name: Norma Serrano RN Position: [facility] RN Member Role: Primary Care Nurse Name: Seven Kelly RN Position: [facility] RN Member Role: Primary Care Nurse Name: Fani Perez RN Position: [facility] RN Member Role: Primary Care Nurse Name: Hattie Brewster RN Position: [facility] RN Member Role: Primary Care Nurse Name: Yudith Rothman RN Position: [facility] Criss RN Member Role: Primary Care Nurse Name: Kelly Hernandez RN Position: [facility] RN Member Role: Primary Care Nurse Name: Parris Zuluaga RN Position: [facility] RN Member Role: Primary Care Nurse Care Team Related Persons Name: MARK ZENAIDA Address: [place] [address] Name: TIA RIVERS Address: [place] [address] Name: JOHANN RETANA Address: [place] [address]
--- OUTSIDE RECORDS SUMMARY | 2023-10-14 16:43 | XMS_ITS | Continuity of Care Document ---
Author Organization [facility] Address [address] [place] [address]- Care Team Providers Care Bobbin Doffer Name Role Phone Peewee STARK, Sharon Primary Care Physician [facility]counter [facility] Date(s): 07/01/19 - 07/01/[address] [address]- [facility] Attending Physician: Yenny Elizalde MD Allergies, Adverse [...] By Mouth, Daily, Dr. primo Renee at [place], # 30 tablet, 0 Refills, Maintenance, 01/26/18 [...]
--- OUTSIDE RECORDS SUMMARY | 2023-10-14 16:43 | XMS_ITS | Continuity of Care Document ---
Author Organization [facility] Address [address] [place] [address]- Care Team Providers Care Gauger Chief Name Role Phone Caitlyn Bowie MD Primary Care Physician [place] [facility] [place]21 - 05/30/21 [facility] [address] [place] [address]- Allergies, Adverse Reactions, Alerts Substance Reaction Severity [...]
--- OUTSIDE RECORDS SUMMARY | 2023-10-14 16:43 | XMS_ITS | Continuity of Care Document ---
Author Organization [facility] ter Address [address] [place] [address]- Care Team Providers Care Bag Bleacher Name Role Phone Caitlyn Bowie MD Primary Care Physician Encounter [facility] Date(s): 10/18/22 - 06/21/[address] [address]- Encounter Diagnosis Nonrheumatic mitral valve disorder, unspecified(Final) - Discharge Disposition: A-D/C Home Attending Physician: Luis Eduardo Cadet MD Admitting Physician: Luis Eduardo Cadet MD Referring Physician: Luis Eduardo Cadet MD Allergies, Adverse Reactions, Alerts Substance Reaction Severity Status ciprofloxacin Active clindamycin throat tightening Active busPIRone Feeling of throat ti ghtness Headache Dizziness Active morphine Active barium sulfate Active iodinated radiocontrast dyes Active gentamicin Active erythromycin Active penicillin 1 Active vancomycin Active ipratropium Active sulfa drugs Active Biaxin Active Voltaren Active Zithromax Active Flagyl Active [...] No entered on: 04/05/17 Sex Note * Pack Mookie STARK R: SIGN Pack Mookie STARK R: SIGN, MODIFY Pack Mookie STARK R: MODIFY, SIGN, VERIFY Event Display: Cardiac Rehab Note Authored Date: Patient: CINDA MALIK Age: 78 years Sex: Female : 1945 Associated Diagnoses: None Author: Joe Seals Initial Assessment Diagnosis: NSTEMI/Mitral Clip EF: >70% Date of Event: 08-10-22 HPI: 78 y/o female with Hx of old NSTEMI, mitral regurgitation, and mitral clip returning to phase 2 program Other Medical Conditions/Comorbidities/Surgeries: advanced lung disease/COPD with prior lung resection, lung cancer, 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 Cadet PCP: Dr. Azeb Monterroso Rec Complete: Y Med Compliant: Y Beta Michelle: Y - metoprolol Allergies: avelox, avocado, barium sulfate, bee stings, biaxin, bispirone, ciprofloxacin, clindamycin, contrast dye, erythromycin, flagyl, gastrografin, gentamicin, iodinated radiocontrast dyes, ipratropium, levaquin, mold, morphine, novocain, penicillin, shrimp, sulfa drugs, vancomycin, voltaren, zithromax Sternal Click: no Incisions C/D/I: n/a Pain: 0/10 Fall in Past 6 Months? yes Physical Limitations: hx of multiple thoracic vertebrae fractures - causes limited mobility , deconditioned Cardiac Rhythm: NSR with IVCD Lung Sounds: did not assess Edema : 0 Diabetes: N Risk Stratification: High Non-Adherence Score: 2 Advanced Directive: Y DNR: N MOLST: N In CIS: Y Adv Dir Form Given: N Other/Notes: followed by body trimmer upholsterer at [facility] and in [place]. Patient has alreadycompleted 10 sessions of cardiac rehab. Plan: 1. Plan Exercise Patient has been enrolled into our medically supervised exercise program and attend classes 2x/wk. Their exercise prescription will be individualized for their current fitness level and will be progressive to assist in reaching their exercise goal such as improved strength and endurance. They will be encouraged to start an exercise program at home to include walking 3-5 days/wk for at least 30 mins as tolerated. We discussed intermittent exercise until she is feeling stronger. Patient reports she has not exercised in months since she was originally discharged from our program. 2. Plan HLD/HTN We will reinforce medication compliance and provide education on cardiac risk factors. Patient willbe encouraged to meet with our Registered Dietitian. 3. Plan Behavioral Health Patient reports very high stress and anxiety and has little support since her daughter moved 7 months ago. She has worked with behavioral health in the past but does not currently work with a counselor or therapist. We discussed a behavioral health consult here at [facility] and patient was receptiveto this idea. Consult will be sent and patient will call central intake to schedule an appt. Initial Exercise Prescription: Frequency: 2x/week Intensity (Initial MET Level/RPE): 1.84 METs/RPE 3 Types of Exercise: recumbent bike, nustep, laps Time of Exercise: 30 minutes Resistance Training: n/a Progression: 40% Increase from 3rd session MET level We look forward to working with Cinda Malik. Please contact us at [phone] if you have any questions or concerns. Thank you Time spent with patient: 128 minutes Report sent to all consultants: Luis Eduardo Cadet MD. Report sent to all consultants: Caitlyn Bowie MD. * Franck STARK, Mookie R: PERFORM Event Display: Cardiac Rehab Note Authored Date: I have reviewed the patient's history, physical exam, and medications and agree with the treatment plan and exercise prescription as outlined in cardiac rehabilitation staff members note. * Event Display: Cardiac Rehab Individual Treatment Plan Authored Date: * Joe Seals: PERFORM, SIGN, VERIFY Event Display: Cardiac Rehab Note Authored Date: Patient: CINDA MALIK Age: 77 years Sex: Female : 1945 Associated Diagnoses: None Author: Joe Seals Patient called today and stated she will not be returning to cardiac rehab. She states she has beenseen by doctor and reports her pain is due to a back fracture. We will d/c her from our program at this point. Patient Care team information Care Team Personnel Name: Val Wynne Position: [facility] Onco RN Member Role: Primary Care Nurse Name: Karen Pittman RN Position: [facility] RN Member Role: Primary Care Nurse Name: Shilpi Mattson Position: Reference Physician Member Role: Primary Care Nurse Address: Address: [address] [place] [address]- Name: Toyin Doherty RN Position: [facility] RN Member Role: Primary Care Nurse Name: Eben Hernandez NP Position: [facility] Associate Professional Member Role: Lifetime Consulting Provider Address: Address: [address] [place] [address]- Name: Alejandrina Turner RN [facility] [...] Care Member Role: PCP Address: Address: [address] [place] [address]- Name: Kiki Abdi RN [facility] [...] Role: Lifetime Consulting Provider Address: Address: [address] [place] [address]- Name: Daphne Barton RN Position[facility] [...] Team Related Persons Name: ZENAIDA FLORES Address: [place] [address] Name: TIA RIVERS Address: [place] [address] Name: JOHANN RETANA Address: [place] [address]
--- OUTSIDE RECORDS SUMMARY | 2023-10-14 16:43 | XMS_ITS | Continuity of Care Document ---
Author Organization [facility] Address [address] [place] [address]- Care Team Providers Care Taxonomist Name Role Phone Caitlyn Bowie MD Primary Care Physician Encounter [facility] Date(s): 10/18/21 - 11/17/21 [facility] [address] [place] [address]- Allergies, Adverse Reactions, Alerts Substance Reaction Severity [...] day, 0 Refills, Maintenance, 11/06/21 12:44:00 EDT, [place], Partialfill upon patient request if the prescription [...] Refills, Maintenance, 11/09/21 9:33:00 EDT, EC Capsule, [facility], Partial fill upon patient request [...]
--- OUTSIDE RECORDS SUMMARY | 2023-10-14 16:43 | XMS_ITS | Continuity of Care Document ---
Author Organization [facility] Address [address] [place] [address]- Care Team Providers Care Coal Hauler Operator Name Role Phone Caitlyn Bowie MD Primary Care Physician [facility]counter [facility] Date(s): 08/23/22 - 09/22/22 [facility] [address] [place], [place] [address] Allergies, Adverse Reactions, Alerts [...] Role: Primary Care Nurse Address: Address: [address] [place] [address] [address] [place] [address]- [place] Name: Toyin Doherty RN Position: [facility] RN Member Role: Primary Care Nurse Name: Eben Hernandez NP Position: [facility] Associate Professional Member Role: Lifetime Consulting Provider Address: Address: [address] [place] [address]- Name: Alejandrina Turner RN Position: [facility] RN Member Role: Primary Care Nurse Name: Zoraida Felix RN Position: [facility] RN Member Role: Primary Care Nurse Name: Daphne Hooker RN Position: [facility] RN Member Role: Primary Care Nurse Name: Nasima Gonzalez RN Position: [facility] RN Suprodney Member Role: Primary Care Nurse Name: Caitlyn Bowie MD Position: [facility] Primary Care Physician Member Role: PCP Address: Address: [address] [place] [address]- Name: Sheeba García Position: [facility] RN Member Role: Primary Care Nurse Name: Kiki Abdi RN Position: [facility] RN Member Role: Primary Care Nurse Name: Marry Reza Position: [facility] RN Member Role: Primary Care Nurse Name: Veronica Hurst [place] Position: [facility] PCO RN Member Role: Lifetime Consulting Physician Name: Maddie Herrera RN Position: [facility] RN Member Role: Primary Care Nurse Name: Raegan Baptiste RN Position: [facility] RN Member Role: Primary Care Nurse Name: Svitlana Mracum RN Position: [facility] AMB Nurse [...] Care Nurse Name: Katherine Nixon PharmD Position: [facility] Associate Professional Member Role: Lifetime Consulting Provider Address: Address: [address] [place] [address] Name: Daphne Barton RN [facility] [...] Care Nurse Name: Yudith Rothman RN Position: [facility] Onco RN Member Role: Primary Care Nurse Name: Kelly Hernandez RN Position: [facility] RN Member Role: Primary Care Nurse Name: Parris Zuluaga RN Position: [facility] RN Member Role: Primary Care Nurse Care Team Related Persons Name: ZENAIDA FLORES Address: [place], [place] Name: TIA RIVERS Address: home [address] [place] [address] Name: JOHANN RETANA Address: [place], [place]
--- OUTSIDE RECORDS SUMMARY | 2023-10-14 16:43 | XMS_ITS | Continuity of Care Document ---
Author Organization [facility] Address [address] [place] [address]- Care Team Providers Care Rug Hooker Name Role Phone Caitlyn Bowie MD Primary Care Physician [phone] Encounter [facility] Date(s): 01/03/23 - 02/02/23 [facility] [address] [place], [place] [address] Allergies, Adverse Reactions, Alerts Substance Reaction Severity Status ciprofloxacin Active barium sulfate Active sulfa drugs Active gentamicin Active erythromycin Active penicillin 1 Active vancomycin Active busPIRone Feeling of throat ti ghtness Headache Dizziness Active ipratropium Active morphine Active Novocain Active Gastrografin Active Levaquin Avocado Active iodinated radiocontrast dyes Active Voltaren Active Zithromax Active Flagyl Active Biaxin Active [...] Care Nurse Name: Karen Pittman RN Position: [facility] RN Member Role: Primary Care Nurse Name: Shilpi Mattson Position: Reference Physician Member Role: Primary Care Nurse Address: Address: [address] [place] [address] Name: Toyin Doherty RN Position: [facility] RN Member Role: Primary Care Nurse Name: Eben Hernandez NP Position: [facility] Associate Professional Member Role: Lifetime Consulting Provider Address: Address: [address] [place] [address] Name: Alejandrina Turner RN Position: [facility] RN Member Role: Primary Care Nurse Name: Zoraida Felix RN Position: [facility] RN Member Role: Primary Care Nurse Name: Daphne Hooker RN Position: [facility] RN Member Role: Primary Care Nurse Name: Nasima Gonzalez RN Position: [facility] RN Supv Member Role: Primary Care Nurse Name: Caitlyn Bowie MD Position: [facility] Physician - Primary Care Member Role: PCP Address: Address: [address] [place] [address]- Name: Kiki Abdi RN Position: [facility] RN Member Role: Primary Care Nurse Name: Marry Reza Position: [facility] RN Member Role: Primary Care Nurse Name: Veronica Hurst [place] Position: [facility] [place] Member Role: Lifetime Consulting Physician Name: Maddie Herrera RN Position: [facility] AMB [...] Member Role: Lifetime Consulting Provider Address: Address: [address] [place] [address]- Name: Daphne Barton RN Position: [facility] [...] Rothman RN Position: [facility] Onco RN Member Role: Primary Care Nurse Name: Kelly Hernandez RN Position: [facility] RN Member Role: Primary Care Nurse Name: Parris Zuluaga RN Position: [facility] RN Member Role: Primary Care Nurse Care Team Related Persons Name: ZENAIDA FLORES Address: [place], [place] Name: TIA RIVERS Address: [place] [address] Name: JOHANN RETANA Address: [place], [place]
--- OUTSIDE RECORDS SUMMARY | 2023-10-14 16:43 | XMS_ITS | Continuity of Care Document ---
Author Organization [facility] Address [address] [place] [address]- Care Team Providers Care Vinyl Hanger Name Role Phone Caitlyn Bowie MD Primary Care Physician Encounter [facility] Date(s): 09/24/21 - 10/24/21 [facility] [address] [place] [address]- [place] Allergies, Adverse Reactions, Alerts Substance Reaction [...]
--- OUTSIDE RECORDS SUMMARY | 2023-10-14 16:44 | XMS_ITS | Continuity of Care Document ---
Author Organization [facility] Address [address] [place] [address]- Care Team Providers Care Mixer Operator Hot Metal Name Role Phone Caitlyn Bowie MD Primary Care Physician Encounter [facility] Date(s): 08/02/23 - 09/01/23 [facility] [address] [place], [place] [address] Allergies, Adverse Reactions, Alerts Substance Reaction Severity Status ciprofloxacin Active gentamicin Active clindamycin throat tightening Active erythromycin Active penicillin 1 Active busPIRone Feeling of throat ti ghtness Headache Dizziness Active ipratropium Active barium sulfate Active sulfa drugs Active iodinated radiocontrast dyes Active Zithromax Active Flagyl Active Novocain Active Biaxin Active Gastrografin Active Levaquin Avocado Active Avelox Active Bee Stings Active Contrast Dye Active Mold Active Shrimp Active Avocado Active Voltaren Active vancomycin Active morphine Active 1Allergy testing doen 09/26 was negative [...] RN Member Role: Primary Care Nurse Name: Zain YOU, Karen Bella Position: [facility] RN Member Role: Primary Care Nurse Name: Romarioclaudy Shilpi Yoni Position: Reference Physician Member Role: Primary Care Nurse Address: Address: [address] [place] [address]- [place] Name: Toyin Doherty RN Position: [facility] RN Member Role: Primary Care Nurse Name: Eben Hernandez NP Position: [facility] Associate Professional Member Role: Lifetime Consulting Provider Address: Address: [address] [place] [address]- [place] Name: Alejandrina Turner RN Position: [facility] RN Member Role: Primary Care Nurse Name: Zoraida Felix RN Position: [facility] ED RN W/OE and Tasks Member Role: Primary Care Nurse Name: Jaye Harley Position: [facility] [place] Glass Blowing Instructor Member Role: Form Tamping Machine Operator Name: Daphne Hooker RN Position: [facility] RN Member Role: Primary Care Nurse Name: Nasima Gonzalez RN Position: [facility] RN Supv Member Role: Primary Care Nurse Name: Caitlyn Bowie MD Position: [facility] Physician - Primary Care Member Role: PCP Address: Address: [address], [place] [address]- [place] Name: Kiki Abdi RN Position: [facility] RN Member Role: Primary Care Nurse Name: Marry Reza Position: [facility] RN Member Role: Primary Care Nurse Name: Veronica Hurst [place] Position: [facility] AMB [place] Member Role: Lifetime Consulting Physician Name: Maddie Herrera RN Position: [facility] AMB Nurse Member Role: Primary Care Nurse Name: Yudith Herrera RN Position: [facility] Onco RN [...] Care Nurse Name: Katherine Nixon PharmD Position: [facility] Associate Professional Member Role: Lifetime Consulting Provider Address: Address: [address] [facility] [place] [address]- Name: Daphne Barton RN Position: S RN Member Role: Primary Care Nurse Name: Katherine Long RN Position: S RN Member Role: Primary Care Nurse Name: Norma Serrano RN Position: S RN Member Role: Primary Care Nurse Name: Seven Kelly RN Position: [facility] ED RN W/OE and Tasks Member Role: Primary Care Nurse Name: Fani Perez RN Position: [facility] RN Member Role: Primary Care Nurse Name: Hattie Brewster RN Position: [facility] RN Member Role: Primary Care Nurse Name: Kelly Hernandez RN Position: [facility] RN Member Role: Primary Care Nurse Name: Pallavi Wylie LPN Position: [facility] RN Member Role: Primary Care Nurse Name: Parris Zuluaga RN Position: [facility] RN Member Role: Primary Care Nurse Care Team Related Persons Name: ZENAIDA FLORES Address: [place] [address] Name: TIA RIVERS Address: [place] [address] Name: JOHANN RETANA Address: [place] [address]
--- OUTSIDE RECORDS SUMMARY | 2023-10-14 16:44 | XMS_ITS | Continuity of Care Document ---
Author Organization [facility] ter Address [address] [place] [address]- Care Team Providers Care Locomotive Electrician Name Role Phone Peewee STARK, Sharon Primary Care Physician Encounter [facility] Date(s): 12/26/19 - 12/26/[address] [address]- [facility] Discharge Disposition: A-D/C Home Attending Physician: Rock Russell MD Admitting Physician: Rock Russell MD Referring Physician: Not on Staff, Referring [...] By Mouth, Daily, Dr. primo Renee at [place], # 30 tablet, 0 Refills, Maintenance, 01/26/18 16:36:23 EDT, ER Tablet Start Date: 01/26/18 Status: Ordered metroNIDAZOLE 500 mg oral tablet 1 tablet = 500 mg, By Mouth, Every 8 hours, may take with food to minimize abdominal discomfort, # 18 tablet, 0 Refills, Maintenance, 09/06/19 14:42:00 EST, Tablet, [facility] 3, 160, cm,09/06/19 7:35:00 EST, Height, [...] Exam Date Time Procedure Performing Provider Status 12/26/19 6:21 PM Chest 2 Views Frontal and Lat Anita Benson ondolores; Auth (Verified) Notes: (Chest 2 Views Frontal and Lat) Reason For Exam: Shortness of Breath RESULT: Chest 2 Views Frontal and Lat Chest 2 Views Frontal and Lat Reason: Shortness of Breath; Clinical Question(s): Pneumonia; COMPARISON: 09/06/2019 FINDINGS: LINES AND TUBES: None. LUNGS AND PLEURA: Interstitial prominence with Elmer B lines. Left pleural effusion is small. HEART, MEDIASTINUM AND PAULIE: Unchanged cardiomediastinal silhouette. BONES AND SOFT TISSUES: No acute abnormality. IMPRESSION: Suspected interstitial pulmonary edema and left pleural effusion. Left lung base consolidation cannot be excluded. WSN: [id number] Ordering Physician: Richar Ramirez MD Dictated By: Juan C Blancas MD Dictated Date/Time: 12/26/19 6:25 pm Reviewed By: Juan C Blancas MD Signed By: Juan C Blancas MD Signed Date/Time: 12/26/19 6:25 pm Transcribed By: MART Transcribed Date/Time: 12/26/19 6:23 pm Vital Signs Most recent to oldest [Reference Range]: 1 2 Height 160 cm (12/26/19 6:57 PM) 160 cm (12/26/19 4:47 PM) Weight 60.9 kg (12/26/19 6:57 PM) 60.9 kg (12/26/19 4:47 PM) Oxygen Saturation [94-100 %] 95 % (12/26/19 6:57 PM) 98 % (12/26/19 4:47 PM) Pulse Rate [55-90 bpm] 80 bpm (12/26/19 6:57 PM) 89 bpm (12/26/19 4:47 PM) Body Mass Index [18.5-24.99] 23.79 (12/26/19 6:57 PM) 23.79 (12/26/19 4:47 PM) Blood Pressure [90-138/55-84 mm Hg] 124/ 85mm Hg (12/26/19 6:57 PM) 151/85mm Hg *H* (12/26/19 4:47 PM) Respiratory Rate [16-30 br/min] 18 br/mi n (12/26/19 6:57 PM) 18 br/min (12/26/19 4:47 PM) Temperature [96.8-100.4 DegF] 97.8 DegF (12/26/19 7:52 PM) 98.6 DegF (12/26/19 4:47 PM) Mode of Delivery (Oxygen) Room air (12/26/19 6:57 PM) Room air (12/26/19 4:47 PM) Blood pressure sites Arm, right (12/26/19 4:47 PM) Temperature Route Oral (12/26/19 7:52 PM) Oral (12/26/19 4:47 PM) Dry Weight 60.9 kg (12/26/19 6:57 PM) 60.9 kg (12/26/19 4:47 PM) Weight Obtained Via Standing scale (12/26/19 4:47 PM) Dry Weight Obtained Via Standing scale (12/26/19 4:47 PM) Social History Social History Type Response Smoking Status Never smoker; Tobacc o user in household: No entered on: 04/05/17 Sex
--- OUTSIDE RECORDS SUMMARY | 2023-10-14 16:44 | XMS_ITS | Continuity of Care Document ---
Author Organization [facility] Address [address] [place] [address]- Care Team Providers Care Bottom Steep Tender Name Role Phone Peewee STARK, Sharon Primary Care Physician ( [phone] [place] [facility] [place] 06/12/19 - 06/22/19 [facility] [address] [place] [address]- [facility] Attending Physician: Melissa Morrison Admitting Physician: AdmMelissa coronado Referring Physician: AdmtrMelissa Allergies, Adverse Reactions, Alerts Substance Reaction Severity [...] By Mouth, Daily, Dr. primo Renee at [place], # 30 tablet, 0 Refills, Maintenance, 01/26/18 [...]
--- OUTSIDE RECORDS SUMMARY | 2023-10-14 16:44 | XMS_ITS | Continuity of Care Document ---
Author Organization [facility] Address [address] [place] [address]- Care Team Providers Care Shuttle Van Driver Name Role Phone Caitlyn Bowie MD Primary Care Physician Encounter [facility] Date(s): 07/12/21 - 08/11/21 [facility] [address] [place] [address] Allergies, Adverse Reactions, Alerts Substance [...] tetanus/diphtheria/pertussis, acel(Tdap) 02/28/16 Given pneumococcal 13-valent vaccine 10/13/14 Given Medications Advair HFA 230 mcg / [...]
--- OUTSIDE RECORDS SUMMARY | 2023-10-14 16:44 | XMS_ITS | Continuity of Care Document ---
Author Organization [facility] Address [address] [place] [address]- Care Team Providers Care Loading Machine Adjuster Name Role Phone Caitlyn Bowie MD Primary Care Physician Encounter [facility] Date(s): 06/03/22 - 06/10/22 [facility] [address] [place] [address]- Encounter Diagnosis Pneumonia(Discharge Diagnosis) - 06/03/22 Shingles rash(Discharge Diagnosis) - 06/03/22 Attending Physician: Kay SHIRT LINE OPERATOR, Rachel Allergies, Adverse Reactions, Alerts Substance Reaction Severity [...] Refusal Reason influenza virus vaccine, inactivated 05/13/22 Lusi rded influenza virus vaccine, inactivated 05/15/21 Luis [...] 0 Refills, Maintenance, 05/19/22 11:45:00 EST, [facility], Partial fill upon patient request [...] Physician Stop, 09/30/21 13:21:00 EDT, [facility], 160, cm, 09/24/21 16:15:00 EDT, [...] Dates Health Status Cl inical Service Informant Pneumonia Discharge Diagnosis 06/03/22 Shingles rash Discharge Diagnosis 06/03/22 Vital Signs Most recent to oldest [Reference Range]: 1 Height 161 cm (06/03/22 11:02 AM) Weight 61.0 kg (06/03/22 11:02 AM) Oxygen Saturation [94-100 %] 97 % (06/03/22 11:02 AM) Pulse Rate [55-90 bpm] 77 bpm (06/03/22 11:02 AM) Body Mass Index [18.5-24.99 kg/m2] 23.53 kg/m2 (06/03/22 11:02 AM) Blood Pressure [90-138/55-84 mm Hg] 100/ 58mm Hg (06/03/22 11:02 AM) Respiratory Rate [16-30 br/min] 14 br/mi n *L* (06/03/22 11:02 AM) Mode of Delivery (Oxygen) Room air (06/03/22 11:02 AM) Blood pressure sites Arm, left (06/03/22 11:02 AM) Weight Obtained Via Standing scale (06/03/22 11:02 AM) Social History Social History Type Response Smoking Status Never smoker; Tobacc o user in household: No entered on: 04/05/17 Sex Note * Tracie Ruiz: PERFORM, SIGN, VERIFY Event Display: Patient Education/Instruction Authored Date: [id number] [facility] *[facility] Clinical Summary Name CINDA WATSON Age 77 Years 1945 PCP [id number] Date 06/03/2022 10:53:00 Additional Instructions: Scheduled Appointments?? Future Appointments ?*No??[facility] ?[address]??[place],??[place],??[address] ?Phone:??--?Fax:??-- ?Appt. Date:??06/24/2022?11:00 AM ?Scheduled Provider:??Caitlyn Bowie MD ?[facility] ?[address]??[place],??[place],??[address] ?Phone:??[phone]?Fax:??-- ?Appt. Date:??07/08/2022?1:00 PM ?Scheduled Provider:??[facility] 3D Mammo [...] tablet) 1 tab(s) Oral Daily. Next Dose: Lanolin-Mineral Oil Topical (lanolin-mineral oil topical lotion) USE TWICE DAILY. Refills: 0. Next Dose: levocetirizine (Xyzal 5 [...] ciprofloxacin Medications Given This Visit Future Orders ?Chest 2 Views Frontal and Lat? Order Date:06/03/22?- Complete on or after?06/03/22 Vital Signs Height 161 cm Weight 61.0 kg BMI 23.53 kg/m2 Blood Pressure 100 mm Hg/58 mm Hg Temperature Pulse Rate 77 bpm Respiratory Rate 14 br/min 02 Sat Mode of Delivery 97 %/Room air You can now view a summary of your hospital visit from the comfort of your home through a free online portal called [email or web address]. [email or web address] is a website that allows you to securely view your medical information including discharge summary, medications and follow-up visits. ??You can alsosend a secure electronic message to your doctor???s office to request appointments, renew medications or just ask a question. You can enroll at [email or web address] or register during your next [...] care provider, you may find a [facility] provider by calling [facility] at [phone]. For information about the plan of care [...] Team Personnel Name: Val Wynne Position: [facility] Onco RN Member Role: Primary Care Nurse Name: Karen Pittman RN Position: S RN Member Role: Primary Care Nurse Name: Shilpi Mattson Position: Reference Physician Member Role: Primary Care Nurse Address: Address: [address] [place] [address] [address] [place] [address]- Name: Toyin Doherty RN Position: S RN Member Role: Primary Care Nurse Name: Eben Hernandez NP Position: S Associate Professional Member Role: Lifetime Consulting Provider Address: Address: [address] [place] [address]- Name: Alejandrina Turner RN Position: [facility] RN Member Role: Primary Care Nurse Name: Zoraida Felix RN Position: [facility] RN Member Role: Primary Care Nurse Name: Daphne Hooker RN Position: [facility] RN Member Role: Primary Care Nurse Name: Nasima Gonzalez RN Position: [facility] RN Supv Member Role: Primary Care Nurse Name: Caitlyn Bowie MD Position: [facility] Primary Care Physician Member Role: PCP Address: Address: [address] [place] [address]- Name: Sheeba García Position: [facility] RN Member Role: Primary Care Nurse Name: Kiki Abdi RN Position: [facility] RN Member Role: Primary Care Nurse Name: Marry Reza Position: [facility] RN Member Role: Primary Care Nurse Name: Veronica Hurst [place] Position: [facility] PCO RN Member Role: Lifetime Consulting Physician Name: Maddie Herrera RN Position: [facility] RN Member Role: Primary Care Nurse Name: Raegan Baptiste RN Position: [facility] RN Member Role: Primary Care Nurse Name: Svitlana Marcum RN Position: [facility] AMB Nurse Member Role: Primary Care Nurse Name: She Pool Position: [facility] RN Member Role: Primary Care Nurse Name: Kaila Latham RN Position: [facility] ED RN W/OE and Tasks Member Role: Primary Care Nurse Name: Julio C Bhaena Position: [facility] RN Member Role: Primary Care Nurse Name: Nasima Heredia RN Position: [facility] RN Member Role: Primary Care Nurse Name: Katherine Nixon PharmD Position: [facility] Associate Professional Member Role: Lifetime Consulting Provider Address: Address: [address] [place] [address]- Name: Daphne Barton RN Position: [facility] RN Member Role: Primary Care Nurse Name: Katherine Long RN Position: [facility] RN Member Role: Primary Care Nurse Name: Norma Serrano RN Position: [facility] RN Member Role: Primary Care Nurse Name: Aurea Kelly RN Position: [facility] RN Member Role: Primary Care Nurse Name: Seven Kelly RN Position: [facility] RN Member Role: Primary Care Nurse Name: Fani Perez RN Position: [facility] RN Member Role: Primary Care Nurse Name: Emely Her Position: [facility] RN Member Role: Primary Care Nurse Name: Yudith Rothman RN Position: S RN Member Role: Primary Care Nurse Name: Parris Zuluaga RN Position: S RN Member Role: Primary Care Nurse Care Team Related Persons Name: ZENAIDA FLORES Address: [address] [place] [address] Name: TIA RIVERS Address: home [address] [place] [address] Name: JOHANN RETANA Address: [place] [address]
--- OUTSIDE RECORDS SUMMARY | 2023-10-14 16:44 | XMS_ITS | Continuity of Care Document ---
Author Organization [facility] Address [address] [place] [address]- Care Team Providers Care Kiln Placer Name Role Phone Caitlyn Bowie MD Primary Care Physician [phone] Encounter [facility] Date(s): 09/14/21 - 10/14/21 [facility] [address] [place], [place] [address] Allergies, Adverse Reactions, Alerts Substance Reaction Severity Status ciprofloxacin Active erythromycin Active barium sulfate Active iodinated radiocontrast dyes Active Zithromax Active Flagyl Active gentamicin Active penicillin 1 Active vancomycin Active busPIRone Feeling of throat ti ghtness Headache Dizziness Active ipratropium Active morphine Active sulfa drugs Active Voltaren Active Gastrografin Active Levaquin Avocado [...]
--- OUTSIDE RECORDS SUMMARY | 2023-10-14 16:44 | XMS_ITS | Continuity of Care Document ---
Author Organization [facility] Address [address] [place] [address]- Care Team Providers Care Software Manager Name Role Phone Caitlyn Bowie MD Primary Care Physician Encounter [facility] Date(s): 07/01/21 - 07/31/21 [facility] [address] [place] [address]- [place] Allergies, Adverse Reactions, Alerts Substance Reaction [...]
--- OUTSIDE RECORDS SUMMARY | 2023-10-14 16:44 | XMS_ITS | Continuity of Care Document ---
Author Organization [facility] Address [address] [place] [address]- Care Team Providers Care Radio Time Salesperson Name Role Phone Cailtyn Bowie MD Primary Care Physician [facility]counter [facility] Date(s): 05/03/23 - 06/02/23 [facility] [address] [place], [place] [address] Allergies, Adverse Reactions, Alerts [...] Member Role: Primary Care Nurse Address: Address: [address] [place] [address]- [place] Name: Toyin Doherty RN Position: [facility] RN Member Role: Primary Care Nurse Name: Eben Hernandez NP Position: [facility] Associate Professional Member Role: Lifetime Consulting Provider Address: Address: [address] [place] [address]- [place] Name: Alejandrina Turner RN Position: [facility] [...] Primary Care Member Role: PCP Address: Address: [address] [place] [address]- [place] Name: Kiki Abdi RN Position: [facility] RN Member Role: Primary Care Nurse Name: Maryr Reza Position: S RN Member Role: Primary [...] Care Nurse Name: Katherine Nixon PharmD Position: [facility] Associate Professional Member Role: Lifetime Consulting Provider Address: Address: [address] [place] [address] Name: Daphne Barton RN Position: [facility] [...] Team Related Persons Name: MARKZENAIDA ADAIR Address: [place] [address] Name: TIA RIVERS Address: [place] [address] Name: JOHANN RETANA Address: [place] [address]
--- OUTSIDE RECORDS SUMMARY | 2023-10-14 16:44 | XMS_ITS | Continuity of Care Document ---
Author Organization [facility] Address [address] [place] [address]- Care Team Providers Care Chief Compliance Officer Name Role Phone Caitlyn Bowie MD Primary Care Physician [phone] Encounter [facility] Date(s): 07/28/21 - 08/27/21 [facility] [address] [place] [address] Allergies, Adverse Reactions, Alerts Substance [...] vaccine, inactivated 04/16/17 Give n SARS-CoV-2 (COVID-19) mRNA-1278 vaccine 08/06/20 R ecorded Influenza Virus Vaccine [...] Date: 08/20/21 Stop Date: 09/18/21 Status: Ordered Metoprolol Succinate ER 25 mg [...]
--- OUTSIDE RECORDS SUMMARY | 2023-10-14 16:45 | XMS_ITS | Continuity of Care Document ---
Author Organization [facility] Address [address] [place] [address]- Care Team Providers Care Retirement Administrator Name Role Phone Caitlyn Bowie MD Primary Care Physician [facility]counter [facility] Date(s): 03/24/23 - 04/23/23 [facility] [address] [place] [address]- Attending Physician: Melissa Morrison Admitting Physician: AdmtrMelissa Referring Physician: Admtr, Ar8 [...] Role: Primary Care Nurse Address: Address: [address] [place] [address]- [place] Name: Toyin Doherty RN Position: S RN Member Role: Primary Care Nurse Name: Eben Hernandez NP Position: S Associate Professional Member Role: Lifetime Consulting Provider Address: Address: [address] [place] [address]- [place] Name: Alejandrina Turner RN Position: S RN Member Role: Primary Care Nurse Name: Zoraida Felix RN Position: [facility] RN Member Role: Primary Care Nurse Name: Daphne Hooker RN Position: [facility] RN Member Role: Primary Care Nurse Name: Nasima Gonzalez RN Position: [facility] RN Loyda Member Role: Primary Care Nurse Name: Caitlyn Bowie MD Position: [facility] Physician - Primary Care Member Role: PCP Address: Address: [address] [place] [address]- Name: Kiki Abdi RN Position: [facility] RN Member Role: Primary Care Nurse Name: Marry Reza Position: [facility] RN Member Role: Primary Care Nurse Name: Veronica Hurst MA Position: [facility] AMB [place] Member Role: Lifetime Consulting Physician Name: Yudith Ruiz RN Position: [facility] Onco RN Member Role: Primary Care Nurse Name: Maddie Herrera RN Position: [facility] AMB Nurse Member Role: Primary Care Nurse Name: Raegan Baptiste RN Position: [facility] RN Member Role: Primary Care Nurse Name: She Pool Position: [facility] RN Member Role: Primary Care Nurse Name: Kaila Latham RN Position: [facility] RN Member Role: Primary Care Nurse Name: Julio C Bahena Position: [facility] RN Member Role: Primary Care Nurse Name: Nasima Heredia RN Position: [facility] RN Member Role: Primary Care Nurse Name: Katherine Nixon PharmD Position: [facility] Associate Professional Member Role: Lifetime Consulting Provider Address: Address: [address] [place] [address]- Name: Daphne Barton RN Position: [facility] RN Member Role: Primary Care Nurse Name: Katherine Long RN Position: [facility] RN Member Role: Primary Care Nurse Name: Norma Serrano RN Position: [facility] RN Member Role: Primary Care Nurse Name: Seven Kelly RN Position: [facility] RN Member Role: Primary Care Nurse Name: Fani Perez RN Position: [facility] RN Member Role: Primary Care Nurse Name: Hattie Brewster RN Position: [facility] RN Member Role: Primary Care Nurse Name: Kelly Hernandez RN Position: [facility] RN Member Role: Primary Care Nurse Name: Pallavi Wylie LPN Position: [facility] RN Member Role: Primary Care Nurse Name: Parris Zuluaga RN Position: S RN Member Role: Primary Care Nurse Care Team Related Persons Name: ZENAIDA FLORES Address: [place] [address] Name: TIA RIVERS Address: [place] [address] Name: JOHANN RETANA Address: [place] [address]
--- OUTSIDE RECORDS SUMMARY | 2023-10-14 16:45 | XMS_ITS | Continuity of Care Document ---
Author Organization [facility] Address [address] [place] [address]- Care Team Providers Care Doctor Of Optometry Name Role Phone Caitlyn Bowie MD Primary Care Physician Encounter [facility] Date(s): 04/10/21 - 04/16/[address] [address]- Encounter Diagnosis Diverticulitis(Final) - 04/10/21 Discharge Disposition: A-D/C Home Attending Physician: Christian STARK, [facility] Admitting Physician: Mika STARK, Nannette Referring Physician: Not on Staff, Referring MD [...] 16:14:00 EDT,Route to Pharmacy Electronically, [facility], Partial fill upon patient request if the prescription is for a schedule II opioid drug., 13... Start Date: 04/16/21 Stop Date: 05/16/21 Status: Ordered atorvastatin 80 mg oral tablet 1 tablet = 80 mg, By Mouth, Daily at bedtime, # 30 tablet, 0 Refills, Maintenance, 04/16/21 16:15:00 EDT, Tablet, [facility], Partial fill upon patient request [...] 02/15/21 Stop Date: 03/01/21 Status: Ordered metoprolol 25 mg oral tablet 25 mg, Tablet, By Mouth, Hold for: SBP<110, HR<70, 04/16/21 9:00:00 EDT Start Date: 04/16/21 Stop Date: 04/16/21 Status: Completed Metoprolol Succinate ER 50 mg [...] tachycardia)(Confirmed) Active 1left eye 2lower extrem Results Orders for Microbiology Reports Name Date Sputum Culture w/ Gram Smear 04/13/21 Microbiology Reports TEST:Sputum Culture STATUS:Auth (Verified) BODY SITE: SOURCE:EXPECT COLLECTED DATE/TIME:04/13/21 11:50 PM Sputum Culture SPECIMEN DESCRIPTION : EXPECTORATED SPUTUM SPECIAL REQUESTS : NONE GRAM STAIN : 1+ SQ.EPITHELIAL CELLS 1+ GRAM POSITIVE COCCI CULTURE : 3+ NORMAL DION REPORT STATUS : FINAL 04/16/2021 Radiology Reports * Exam Date Time Procedure Performing Provider Status 04/10/21 11:51 PM Chest Portable Maryse Aldridge; Auth ( Verified) Notes: (Chest Portable) Reason For Exam: low saturation 80s;Other: RESULT: Chest Portable Chest Portable Reason: Other:; low saturation 80s; Clinical Question(s): Pneumonia; Fluid overload, atelectasis COMPARISON: 04/10/2021. Earlier studies reviewed. FINDINGS: LINES AND TUBES: None. LUNGS AND PLEURA: New moderate central alveolar opacity/edema and increasing moderate peripheral interstitial edema seen throughout the right lung. No significant change seen on the left, with volume loss, hyperlucency in the upper lung, and consolidation/pleural effusion at the left base. No pneumothorax. HEART, MEDIASTINUM AND PAULIE: Heart is normal in size. Slightly prominent transverse diameter of the upper intrathoracic trachea,unchanged. Normal upper mediastinal and hilar contour. BONES AND SOFT TISSUES: No acute abnormality. IMPRESSION: Worsening CHF asymmetrically evident in the right lung. Unchanged left lung volume loss in left base consolidation/atelectasis with pleural effusion. WSN: [id number] Ordering Physician: Angela Pacheco Dictated By: Andre Rojas MD Dictated Date/Time: 04/11/21 9:01 am Reviewed By: Andre Rojas MD Signed By: Andre Rojas MD Signed Date/Time: 04/11/21 9:01 am Transcribed By: MART Transcribed Date/Time: 04/11/21 8:58 am * Exam Date Time Procedure Performing Provider Status 04/10/21 6:42 PM Chest 2 Views Frontal and Lat Risa Gamez; Auth (Verified) Notes: (Chest 2 Views Frontal and Lat) Reason For Exam: Shortness of Breath RESULT: Chest 2 Views Frontal and Lat Chest 2 Views Frontal and Lat Hx of Present Illness: Patient noticed dark colored stool this morning. Denies pain. Patient is anticoagulated w warfarin. Denies N V SOB Fever.; Reason: Shortness of Breath; Clinical Question(s): CHF COMPARISON: 02/28/2021 FINDINGS: LINES AND TUBES: None. LUNGS AND PLEURA: Moderate left pleural effusion has increased in size since the prior study. Adjacent consolidation or atelectasis. Increasing reticular densities bilaterally with Elmer B lines. HEART, MEDIASTINUM AND PAULIE: Similar to the prior study. BONES AND SOFT TISSUES: No acute abnormality. IMPRESSION: Increasing left pleural effusion with adjacent consolidation or atelectasis. Suspected mild pulmonary edema. WSN: [id number] Ordering Physician: Anna Jimenez Dictated By: Juan C Blancas MD Dictated Date/Time: 04/10/21 6:47 pm Reviewed By: Juan C Blancas MD Signed By: Juan C Blancas MD Signed Date/Time: 04/10/21 6:47 pm Transcribed By: MART Transcribed Date/Time: 04/10/21 6:44 pm Vital Signs Most recent to oldest [Reference Range]: 1 2 3 Weight 59.6 kg (04/14/21 12:27 PM) 59 kg (04/13/21 10:25 AM) 65 kg (04/11/21 11:00 PM) Oxygen Saturation [94-100 %] 99 % (04/16/21 3:00 PM) 98 % (04/16/21 11:31 AM) 97 % (04/16/21 7:01 AM) Pulse Rate [55-90 bpm] 65 bpm (04/16/21 3:00 PM) 65 bpm (04/16/21 11:31 AM) 64 bpm (04/16/21 9:58 AM) Blood Pressure [90-138/55-84 mm Hg] 104/54mm Hg (04/16/21 3:00 PM) 114/50mm Hg (04/16/21 11:31 AM) 120/47mm Hg (04/16/21 9:58 AM) Respiratory Rate [16-30 br/min] 20 br/min (04/16/21 3:00 PM) 20 br/min (04/16/21 11:31 AM) 20 br/min (04/16/21 7:01 AM) Temperature [96.8-100.4 DegF] 97.1 DegF (04/16/21 3:00 PM) 97.6 DegF (04/16/21 11:31 AM) 97 DegF (04/16/21 7:01 AM) Liters per Minute 2 L/min (04/16/21 4:58 AM) 0 L/min (04/15/21 11:00 AM) 0 L/min (04/15/21 8:45 AM) Mode of Delivery (Oxygen) Room air (04/16/21 3:00 PM) Room air (04/16/21 11:31 AM) Room air (04/16/21 7:01 AM) Blood pressure sites Arm, right (04/16/21 3:00 PM) Arm, right (04/16/21 11:31 AM) Arm, right (04/16/21 7:01 AM) Temperature Route Temporal (04/16/21 3:00 PM) Temporal (04/16/21 11:31 AM) Temporal (04/16/21 7:01 AM) Dry Weight 65 kg (04/11/21 11:00 PM) Weight Obtained Via Bed scale (04/14/21 12:27 PM) Bed scale (04/13/21 10:25 AM) Bed scale (04/11/21 11:00 PM) Dry Weight Obtained Via Bed scale (04/11/21 11:00 PM) Social History Social History Type Response Smoking Status Never smoker; Tobacc o user in household: No entered on: 04/05/17 Sex
--- OUTSIDE RECORDS SUMMARY | 2023-10-14 16:45 | XMS_ITS | Continuity of Care Document ---
Author Organization [facility] Address [address] [address]- Care Team Providers Care Nursing Techn Name Role Phone Caitlyn Bowie MD Primary Care Physician [phone] Encounter [facility] Date(s): 05/17/21 - 06/16/21 [facility] [address] [address] Allergies, Adverse [...] EDT, Solution Start Date: 01/26/18 Status: Ordered busPIRone 5 mg oral tablet See Instructions, 1/2 to 1 tablet by mouth daily, # 30 tablet, Refills 3, Tot. Refills 3, Maintenance, 06/14/21 10:40:00 EST, Instructions Replace Required Details, Route to Pharmacy Electronically, [facility], Partial fill upon patient... Start Date: 06/14/21 Status: Ordered diazepam 5 mg oral tablet [...] NEEDED DIRECTED Start Date: 04/21/21 Status: Ordered ferrous gluconate 240 mg oral tablet 1 tablet = 240 mg, By Mouth, Daily, 0 Refills, Maintenance, 06/14/21 10:26:00 EST, Partial fill upon patient request if the prescription is for a schedule II opioid drug. Start Date: 06/14/21 Status: Ordered furosemide 20 mg oral tablet [...] Start Date: 01/26/18 Status: Ordered nystatin topical 474684 u/gm powder 1 application, Topically, 3 times [...]
--- OUTSIDE RECORDS SUMMARY | 2023-10-14 16:45 | XMS_ITS | Continuity of Care Document ---
Author Organization [facility] ter Address [address] [place] [address]- Care Team Providers Care Feed Inspection Supervisor Name Role Phone Caitlyn Bowie MD Primary Care Physician [place] [facility] [place] - 05/30/[address] [id number] Discharge Disposition: A-D/C Home Attending Physician: Luis Eduardo Cadet MD Admitting Physician: Luis Eduardo Cadet MD Referring Physician: Luis Eduardo Cadet MD Allergies, Adverse Reactions, Alerts Substance Reaction Severity Status ciprofloxacin Active gentamicin Active clindamycin throat tightening Active penicillin 1 Active busPIRone Feeling of throat ti ghtness Headache Dizziness Active barium sulfate Active sulfa drugs Active Voltaren Active erythromycin Active vancomycin Active ipratropium Active morphine Active iodinated radiocontrast dyes Active Biaxin Active [...] Care Nurse Name: Karen Pittman RN Position: [facility] RN Member Role: Primary Care Nurse Name: Shilpi Mattson Position: Reference Physician Member Role: Primary Care Nurse Address: Address: [address] [place] [address]- [place] Name: Toyin Doherty RN Position: [facility] RN Member Role: Primary Care Nurse Name: Eben Hernandez NP Position: [facility] Associate Professional Member Role: Lifetime Consulting Provider Address: Address: [address] [place] [address]- Name: Alejandrina Turner RN Position: [facility] RN Member Role: Primary Care Nurse Name: Zoraida Felix RN Position: [facility] ED RN W/OE and Tasks Member Role: Primary Care Nurse Name: Daphne Hooker RN Position: [facility] RN Member Role: Primary Care Nurse Name: Nasima Gonzalez RN Position: [facility] RN Supv Member Role: Primary Care Nurse Name: Caitlyn Bowie MD Position: [facility] Physician - Primary Care Member Role: PCP Address: Address: [address] [place] [address]- [place] Name: Kiki Abdi RN Position: [facility] RN Member Role: Primary Care Nurse Name: Marry Reza Position: [facility] RN Member Role: Primary Care Nurse Name: Veronica Hurst MA Position: [facility] AMB MA Member Role: Lifetime Consulting Physician Name: Yudith Ruiz RN Position: [facility] Onco RN Member Role: Primary Care Nurse Name: Maddie Herrera RN Position: [facility] AMB Nurse Member Role: Primary Care Nurse Name: Raegan Baptiste RN Position: [facility] RN Member Role: Primary Care Nurse Name: She Pool Position: [facility] RN Member Role: Primary Care Nurse Name: Kaila Latham RN Position: [facility] RN Member Role: Primary Care Nurse Name: Julio C Bahena Position: [facility] RN Member Role: Primary Care Nurse Name: Nasima Heredia RN Position: [facility] RN Member Role: Primary Care Nurse Name: Katherine Nixon PharmD Position: [facility] Associate Professional Member Role: Lifetime Consulting Provider Address: Address: [address] [place] [id number] Name: Daphne Barton RN Position: [facility] Care Nurse Name: Pallavi Wylie LPN Position: [facility] RN Member Role: Primary Care Nurse Name: Parris Zuluaga RN Position: [facility] RN Member Role: Primary Care Nurse Care Team Related Persons Name: ZENAIDA FLORES Address: [place] [address] Name: TIA RIVERS Address: [place] [address] Name: JOHANN RETANA Address: [place], [place]
--- OUTSIDE RECORDS SUMMARY | 2023-10-14 16:45 | XMS_ITS | Continuity of Care Document ---
Author Organization [facility] Address [address] [place] [address]- Care Team Providers Care Copyright Manager Name Role Phone Caitlyn Bowie MD Primary Care Physician [facility] Date(s): 11/26/21 - 12/26/21 [facility] [address] [place] [id number] Allergies, Adverse Reactions, Alerts Substance [...] opioid drug. Start Date: 11/06/21 Status: Ordered diazepam 5 mg oral tablet See Instructions, TAKE 1/2 TO 1 TABLET BY MOUTH TWO TIMES A DAY NEEDED FOR ANXIETY / SLEEP, # 30tablet, Refills 3, Tot. Refills 3, Maintenance, 12/20/21 12:15:00 EDT, Instructions Replace Required Details, Route to Pharmacy Electronically, STOP &... Start Date: 12/20/21 Status: Ordered docusate sodium 100 mg oral [...] day, 0 Refills, Maintenance, 11/06/21 12:44:00 EDT, [place], Partialfill upon patient request if the prescription [...] Dry Weight Start Date: 12/23/21 Status: Ordered Iron Chews = 15 mg, [...] Refills, Maintenance, 11/09/21 9:33:00 EDT, EC Capsule, [facility], Partial fill upon patient request if [...]
--- OUTSIDE RECORDS SUMMARY | 2023-10-14 16:45 | XMS_ITS | Continuity of Care Document ---
Author Organization [facility] Address [address] [address]- Care Team Providers Care Lump Receiver Name Role Phone Azeb STARK, Caitlyn Thompson Primary Care Physician [phone] Encounter [facility] Date(s): 02/08/21 - 03/10/21 [facility] [address] [id number] Allergies, Adverse Reactions, Alerts [...] Vaccine Date Status Refusal Reason SARS-CoV-2 (COVID-19) mRNA-1270 vaccine 08/06/20 R ecorded Influenza Virus Vaccine [...] EDT, Solution Start Date: 01/26/18 Status: Ordered benzocaine 15 mg mucous membrane lozenge 1 lozenge = 15 mg, By Mouth, Every 3 hours, PRN Other, for 14 days, Sore Throat, # 25 lozenge, 0 Refills, Acute 03/15/21 12:16:00 EDT, 03/01/21 12:16:00 EDT, Lozenge, [facility], Partial fill upon patient request if the prescription is f... Start Date: 03/01/21 Stop Date: 03/15/21 Status: Ordered codeine-guaifenesin 7.5 mg-225 mg/5 mL [...] times a day, Dr. primo Renee at [place], per pt, # 30 tablet, 0 Refills, [...] opioid drug. Start Date: 02/15/21 Status: Ordered predniSONE 10 mg oral tablet See Instructions, 40 mg (4 tablet) by mouth x 1 day (03/02/2021), followed by 20 mg (2 tablet) by mouth x 2 days (03/03 and 03/04), followed by 10 mg (1 tablet) by mouth x 2 days (03/05 and 03/06), followed by 5 mg (0.5 tablet) by mouth x 2 days (03/07 and... Start Date: 03/01/21 Status: Ordered Singulair 10 mg oral tablet [...]
--- OUTSIDE RECORDS SUMMARY | 2023-10-14 16:45 | XMS_ITS | Continuity of Care Document ---
Author Organization [facility] Address [address] [place] [address]- Care Team Providers Care Salesperson Meats Name Role Phone Caitlyn Bowie MD Primary Care Physician Encounter [facility] [place] Date(s): 04/21/23 - 06/10/23 [facility] [address] [place], [place] [address] Attending Physician: Caitlyn Bowie MD Allergies, Adverse Reactions, Alerts Substance Reaction Severity Status ciprofloxacin Active gentamicin Active clindamycin throat tightening Active busPIRone Feeling of throat ti ghtness Headache Dizziness Active barium sulfate Active sulfa drugs Active Voltaren Active Zithromax Active Flagyl Active erythromycin Active penicillin 1 Active vancomycin Active ipratropium Active morphine Active iodinated radiocontrast dyes Active Biaxin Active Novocain Active Gastrografin Active Avelox Active Bee Stings [...] Care Team Personnel Name: Val Wynne Position: [facility] Onco RN Member Role: Primary Care Nurse Name: Karen Pittman RN Position: [facility] RN Member Role: Primary Care Nurse Name: Shilpi Mattson Position: Reference Physician Member Role: Primary Care Nurse Address: Address: [address] [place] [address]- Name: Toyin Doherty RN Position: [facility] RN Member Role: Primary Care Nurse Name: Eben Hernandez NP Position: [facility] Associate Professional Member Role: Lifetime Consulting Provider Address: Address: [address] [place] [address]- Name: Alejandrina Turner RN Position: [facility] RN Member Role: Primary Care Nurse Name: Zoraida Felix RN Position: [facility] ED RN W/OE and Tasks Member Role: Primary Care Nurse Name: Daphne Hooker RN Position: [facility] RN Member Role: Primary Care Nurse Name: Nasima Gonzalez RN Position: [facility] RN Supv Member Role: Primary Care Nurse Name: Caitlyn Bowie MD Position: [facility] Physician - Primary Care Member Role: PCP Address: Address: [address] [place] [address]- Name: Kiki Abdi RN Position: [facility] RN Member Role: Primary Care Nurse Name: Marry Reza Position: [facility] RN Member Role: Primary Care Nurse Name: Veronica Hurst MA Position: [facility] SALLY MA Member Role: Lifetime Consulting Physician Name: Sara YOU, Yudith White Position: [facility] Onco RN Member Role: Primary Care Nurse Name: Maddie Herrera RN Position: [facility] AMB Nurse Member Role: Primary Care Nurse Name: Raegan Baptiste RN Position: [facility] RN Member Role: Primary Care Nurse Name: She Pool Position: [facility] RN Member Role: Primary Care Nurse Name: Kaila Latham RN Position: [facility] RN Member Role: Primary Care Nurse Name: Julio C Bahena Position: [facility] RN Member Role: Primary Care Nurse Name: Nasima Heredia RN Position: [facility] ED RN W/OE and Tasks Member Role: Primary Care Nurse Name: Katherine Nixon PharmD Position: [facility] Associate Professional Member Role: Lifetime Consulting Provider Address: Address: [address] [place] [id number] Name: Daphne Barton RN Position: [facility] RN Member Role: Primary Care Nurse Name: Katherine Long RN Position: [facility] RN Member Role: Primary Care Nurse Name: Norma Serrano RN Position: [facility] RN Member Role: Primary Care Nurse Name: Seven Kelly RN Position: [facility] RN Member Role: Primary Care Nurse Name: Fani Perez RN Position: [facility] RN Member Role: Primary Care Nurse Name: Hattie Brewster RN Position: [facility] RN Member Role: Primary Care Nurse Name: Kelly Hernandez RN Position: [facility] RN Member Role: Primary Care Nurse Name: Pallavi Wylie LPN Position: [facility] RN Member Role: Primary Care Nurse Name: Parris Zuluaga RN Position: [facility] RN Member Role: Primary Care Nurse Care Team Related Persons Name: ZENAIDA FLORES Address: [place], [place] Name: TIA RIVERS Address: [place] [address] Name: JOHANN RETANA Address: [place], [place]
--- OUTSIDE RECORDS SUMMARY | 2023-10-14 16:45 | XMS_ITS | Continuity of Care Document ---
Author Organization [facility] Address [address] [place] [address]- Care Team Providers Care Director Global Sales Name Role Phone Caitlyn Bowie MD Primary Care Physician Encounter [facility] [place] Date(s): 04/29/21 - 05/29/21 [facility] [address] [place] [address]- [place] Allergies, Adverse Reactions, Alerts Substance Reaction [...]
--- OUTSIDE RECORDS SUMMARY | 2023-10-14 16:45 | XMS_ITS | Continuity of Care Document ---
Author Organization [facility] ter Address [address] [place] [address]- Care Team Providers Care Wood Room Supervisor Name Role Phone Caitlyn Bowie MD Primary Care Physician [phone] [facility]counter [facility] Date(s): 09/23/21 - 09/24/[address] [address] Discharge Disposition: A-D/C Home Attending Physician: Eben Grigsby DO Admitting Physician: Abdon Che MD Referring Physician: [...] opioid drug. Start Date: 09/24/21 Status: Ordered metoprolol 50 mg oral tablet, extended release 50 mg, XL Tablet, By Mouth, 09/24/21 9:00:00 EDT Start Date: 09/24/21 Stop Date: 09/24/21 Status: Completed predniSONE 5 mg oral tablet 1 tablet [...] Exam Date Time Procedure Performing Provider Status 09/23/21 9:08 PM Chest Portable Basilio Burkett; Da (Ve rified) Notes: (Chest Portable) Reason For Exam: Shortness of Breath RESULT: Chest Portable Chest Portable EXAMINATION: Hypoxia. Patient wears 2L NC sometimes, placed on 2L NC, hypoxia resolved on 3L, pink frothy sputum. Orthopnea. History of non-small cell lung cancer diagnosed 2008, status post left lower lobectomy and chemoradiation. History of mitral and tricuspid regurgitation. COMPARISON: 07/03/2021 FINDINGS: LINES AND TUBES: None. LUNGS AND PLEURA: Grossly unchanged right upper lung haziness corresponding to patchy groundglass opacities and interlobular septal thickening in right upper lobe and superior segment of right lower lobe on prior CT. Unchanged chronic left-sided volume loss post-left lower lobectomy. Unchanged small left pleural effusion with mild left lower lung scarring/postsurgical change. No pneumothorax. HEART, MEDIASTINUM AND PAULIE: Mild prominence of the cardiac silhouette. Aorta is calcified. BONES AND SOFT TISSUES: No acute abnormality. IMPRESSION: Grossly unchanged right upper lung opacities corresponding to patchy groundglass opacities and intralobular septal thickening on prior CT and may represent a chronic infectious or inflammatory processes, although given history of mitral regurgitation, this may also represent related asymmetric pulmonary edema. Unchanged small left pleural effusion. I have personally reviewed the images and I agree with this report. WSN: [id number] Ordering Physician: Demetra Cast Dictated By: Jimmy Simons DO Dictated Date/Time: 09/23/21 9:24 pm Reviewed By: Juan C Blancas MD Signed By: Juan C Blancas MD Signed Date/Time: 09/23/21 9:29 pm Transcribed By: MART Transcribed Date/Time: 09/23/21 9:21 pm Vital Signs Most recent to oldest [Reference Range]: 1 2 3 Height 160 cm (09/24/21 4:15 PM) 160 cm (09/24/21 7:52 AM) 160 cm (09/24/21:23 AM) Weight 57.5 kg (09/24/21:23 AM) Oxygen Saturation [94-100 %] 97 % (09/24/21 4:15 PM) 96 % (09/24/21 7:52 AM) 98 % (09/24/21:23 AM) Pulse Rate [55-90 bpm] 82 bpm (09/24/21 4:15 PM) 75 bpm (09/24/21 9:00 AM) 75 bpm (09/24/21 7:52 AM) Body Mass Index [18.5-24.99] 22.46 (09/24/21 1:23 AM) Blood Pressure [90-138/55-84 mm Hg] 114/51mm Hg (09/24/21 4:15 PM) 124/61mm Hg (09/24/21 9:00 AM) 124/61mm Hg (09/24/21 7:52 AM) Respiratory Rate [16-30 br/min] 19 br/min (09/24/21 4:15 PM) 20 br/min (09/24/21 7:52 AM) 18 br/min (09/24/21:23 AM) Temperature [96.8-100.4 DegF] 97.7 DegF (09/24/21 4:15 PM) 98.2 DegF (09/24/21 7:52 AM) 98.5 DegF (09/24/21:23 AM) Liters per Minute 2 L/min (09/24/21 4:15 PM) 2 L/min (09/24/21 1:23 AM) 1.5 L/min (09/24/21 12:31 AM) Mode of Delivery (Oxygen) Nasal cannula (09/24/21 4:15 PM) Room air (09/24/21 7:52 AM) Nasal cannula (09/24/21 1:23 AM) Blood pressure sites Arm, right (09/24/21 4:15 PM) Arm, left (09/24/21 7:52 AM) Arm, left (09/24/21 1:23 AM) Temperature Route Oral (09/24/21 4:15 PM) Oral (09/24/21 7:52 AM) Oral (09/24/21 1:23 AM) Dry Weight 57.5 kg (09/24/21 1:23 AM) Weight Obtained Via Bed scale (09/24/21 1:23 AM) Dry Weight Obtained Via Bed scale (09/24/21 1:23 AM) Social History Social History Type Response Smoking Status Never smoker; Tobacc o user in household: No entered on: 04/05/17 Sex
--- OUTSIDE RECORDS SUMMARY | 2023-10-14 16:45 | XMS_ITS | Continuity of Care Document ---
Author Organization [facility] Address [address] [place] [address]- Care Team Providers Care Die Repairer Forging Name Role Phone Caitlyn Bwoie MD Primary Care Physician [phone] Encounter [facility] [place] Date(s): 02/10/22 - 02/17/22 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 Start Date: 02/10/22 Status: Ordered cetirizine 10 [...] By Mouth, 2 times a day, for 7 days, # 14 tablet, 0 Refills, Acute 02/21/22 15:34:00 EDT, 02/14/22 15:34:00 EDT, Tablet, [facility], Partial fill upon patient request if the prescription is for a schedule II opioid jessie... Start Date: 02/14/22 Stop Date: 02/21/22 Status: Ordered EPINEPHrine 0.3 mg injectable solution = 0.3 mg, Intramuscular, Once, PRN Anaphylactic Reaction Start Date: 04/21/21 Status: Ordered Flonase 50 mcg/inh nasal spray 2 sprays, Nares, Both, 2 times a day, 0 Refills, Maintenance, 11/06/21 12:44:00 EDT, [place], Partialfill upon patient request if the prescription [...] Refills, Maintenance, 11/09/21 9:33:00 EDT, EC Capsule, [facility], Partial fill upon patient [...] disease) from second hand smoke Discharge Diagnosis 02/10/22 Muscle ache Discharge Diagnosis 02/10/22 Vital Signs Most recent to oldest [Reference Range]: 1 Height 160 cm (02/10/22 8:18 AM) Weight 59 kg (02/10/22 8:18 AM) Oxygen Saturation [94-100 %] 95 % (02/10/22 8:18 AM) Pulse Rate [55-90 bpm] 74 bpm (02/10/22 8:18 AM) Body Mass Index [18.5-24.99] 23.05 (02/10/22 8:18 AM) Blood Pressure [90-138/55-84 mm Hg] 92/5 0mm Hg (02/10/22 8:18 AM) Respiratory Rate [16-30 br/min] 18 br/mi n (02/10/22 8:18 AM) Temperature [96.8-100.4 DegF] 97.3 DegF (02/10/22 8:18 AM) Mode of Delivery (Oxygen) Room air (02/10/22 8:18 AM) Blood pressure sites Arm, left (02/10/22 8:18 AM) Temperature Route Temporal (02/10/22 8:18 AM) Weight Obtained Via Standing scale (02/10/22 8:18 AM) Social History Social History Type Response Smoking Status Never smoker; Tobacc o user in household: No entered on: 04/05/17 Sex
--- OUTSIDE RECORDS SUMMARY | 2023-10-14 16:45 | XMS_ITS | Continuity of Care Document ---
Author Organization [facility] Address [address] [place] [address]- Care Team Providers Care Dividend Deposit Entry Clerk Name Role Phone Caitlyn Bowie MD Primary Care Physician [facility] Date(s): 04/30/21 - 05/30/[facility] [address] [place] [id number] [...]
--- OUTSIDE RECORDS SUMMARY | 2023-10-14 16:46 | XMS_ITS | Continuity of Care Document ---
Author Organization [facility] Address [address] [place] [address]- Care Team Providers Care Regulator Tester Name Role Phone Caitlyn Bowie MD Primary Care Physician [facility]counter [facility] Date(s): 12/20/22 - 01/19/23 [facility] [address] [place], [place] [address] Allergies, Adverse Reactions, Alerts Substance Reaction Severity Status ciprofloxacin Active gentamicin Active ipratropium Active barium sulfate Active Zithromax Active Flagyl Active erythromycin Active penicillin 1 Active vancomycin Active busPIRone Feeling of throat ti ghtness Headache Dizziness Active morphine Active sulfa drugs Active iodinated radiocontrast dyes Active Voltaren Active Gastrografin Active Levaquin Avocado Active Avelox Active Bee Stings Active Contrast Dye Active Mold Active Avocado Active Novocain Active Biaxin Active Shrimp Active 1Allergy testing doen 09/26 [...] Maintenance, 12/13/22 15:37:00 EDT, Tablet, [facility], Partial fill upon patient request [...] Care Team Personnel Name: Val Wynne Position: [facility] Onco RN Member Role: Primary Care Nurse Name: Karen Pittman RN Position: S RN Member Role: Primary Care Nurse Name: Shilpi Mattson Position: Reference Physician Member Role: Primary Care Nurse Address: Address: [address] [place] [address]- Name: Toyin Doherty RN Position: S RN Member Role: Primary Care Nurse Name: Eben Hernandez NP Position: S Associate Professional Member Role: Lifetime Consulting Provider Address: Address: [address] [place] [address]- Name: Alejanrdina Turner RN Position: S RN Member Role: Primary Care Nurse Name: Zoraida Felix RN Position: S RN Member Role: Primary Care Nurse Name: Daphne Hooker RN Position: S RN Member Role: Primary Care Nurse Name: Nasima Gonzalez RN Position: [facility] RN Supv Member Role: Primary Care Nurse Name: Caitlyn Bowie MD Position: [facility] Physician - Primary Care Member Role: PCP Address: Address: [address] [place] [address]- Name: Kiki Abdi RN Position: [facility] RN Member Role: Primary Care Nurse Name: Marry Reza Position: [facility] RN Member Role: Primary Care Nurse Name: Veronica Hurst MA Position: [facility] AMB MA Member Role: Lifetime Consulting Physician Name: Maddie Herrera RN Position: [facility] AMB Nurse Member Role: Primary Care Nurse Name: Raegan Baptiste RN Position: [facility] RN Member Role: Primary Care Nurse Name: Svitlana Marcum RN Position: [facility] AMB Nurse Member Role: Primary Care Nurse Name: She Pool Position: [facility] RN Member Role: Primary Care Nurse Name: Kaila Latham RN Position: [facility] RN Member Role: Primary Care Nurse Name: Julio C Bahena Position: [facility] RN Member Role: Primary Care Nurse Name: Nasima Heredia RN Position: [facility] RN Member Role: Primary Care Nurse Name: Katherine Nixon PharmD Position: [facility] Associate Professional Member Role: Lifetime Consulting Provider Address: Address: [address] [place] [address]- Name: Daphne Barton RN Position: [facility] RN Member Role: Primary Care Nurse Name: Katherine Long RN Position: [facility] RN Member Role: Primary Care Nurse Name: Norma Serrano RN Position: [facility] RN Member Role: Primary Care Nurse Name: Seven Kelly RN Position: [facility] RN Member Role: Primary Care Nurse Name: Fani Perez RN Position: [facility] RN Member Role: Primary Care Nurse Name: Hattie Brewster RN Position: [facility] RN Member Role: Primary Care Nurse Name: Yudith Rothman RN Position: [facility] Onco RN Member Role: Primary Care Nurse Name: Kelly Hernandez RN Position: [facility] RN Member Role: Primary Care Nurse Name: Parris Zuluaga RN Position: [facility] RN Member Role: Primary Care Nurse Care Team Related Persons Name: ZENAIDA FLORES Address: [place] [address] Name: TIA RIVERS Address: [place] [address] Name: JOHANN RETANA Address: [place] [address]
--- OUTSIDE RECORDS SUMMARY | 2023-10-14 16:46 | XMS_ITS | Continuity of Care Document ---
Author Organization [facility] Address [address] [place] [address]- Care Team Providers Care Retoucher Photoengraving Name Role Phone Caitlyn Bowie MD Primary Care Physician [phone] [place] [facility] [place] 03/01/22 - 03/08/22 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 Discharge Diagnosis 03/01/22 Vital Signs Most recent to oldest [Reference Range]: 1 Height 160 cm (03/01/22 10:29 AM) Weight 60.3 kg (03/01/22 10:29 AM) Oxygen Saturation [94-100 %] 97 % (03/01/22 10:29 AM) Pulse Rate [55-90 bpm] 85 bpm (03/01/22 10:29 AM) Body Mass Index [18.5-24.99] 23.55 (03/01/22 10:29 AM) Blood Pressure [90-138/55-84 mm Hg] 116/ 60mm Hg (03/01/22 10:29 AM) Mode of Delivery (Oxygen) Room air (03/01/22 10:29 AM) Blood pressure sites Arm, left (03/01/22 10:29 AM) Weight Obtained Via Standing scale (03/01/22 10:29 AM) Social History Social History Type Response Smoking Status Never smoker; Tobacc o user in household: No entered on: 04/05/17 Sex Care Team Personnel Name: Caitlyn Bowie MD Address: [address] [place] [address]
--- OUTSIDE RECORDS SUMMARY | 2023-10-14 16:46 | XMS_ITS | Continuity of Care Document ---
Author Organization [facility] Address [address] [place] [address]- Care Team Providers Care Brokerage Purchase And Sale Clerk Name Role Phone Caitlyn Bowie MD Primary Care Physician [facility] Date[facility]): 10[facility]21 - 11/10/21 [facility] [address] [place], [place] [address] Allergies, Adverse Reactions, Alerts Substance [...] day, 0 Refills, Maintenance, 11/06/21 12:44:00 EDT, [place], Partialfill upon patient request if the prescription [...] Refills, Maintenance, 11/09/21 9:33:00 EDT, EC Capsule, [facility], Partial fill upon patient request [...]
--- OUTSIDE RECORDS SUMMARY | 2023-10-14 16:46 | XMS_ITS | Continuity of Care Document ---
Author Organization [facility] Address [address] [place] [address]- Care Team Providers Care Cleaning Crew Member Name Role Phone Brennan Burnett MD Primary Care Physician [place] [facility] [place] - 09/24/20 [facility] [address] [place] [address]- Attending Physician: Melissa Morrison Admitting Physician: AdmtrMelissa [...] By Mouth, Daily, Dr. primo Renee at [place], # 30 tablet, 0 Refills, Maintenance, 01/26/18 [...]
--- OUTSIDE RECORDS SUMMARY | 2023-10-14 16:46 | XMS_ITS | Continuity of Care Document ---
Author Organization [facility] Address [address] [place] [address]- Care Team Providers Care Marketing Programs Manager Name Role Phone Peewee STARK, Sharon Primary Care Physician Encounter [facility] [place] Date(s): 08/19/19 - 08/19/[address] [address]- [facility] Attending Physician: Shawn [facility], Danita Rivera Allergies, Adverse Reactions, Alerts Substance Reaction Severity [...] By Mouth, Daily, Dr. primo Renee at [place], # 30 tablet, 0 Refills, Maintenance, 01/26/18 [...]
--- OUTSIDE RECORDS SUMMARY | 2023-10-14 16:46 | XMS_ITS | Continuity of Care Document ---
Author Organization [facility] Address [address] [place] [address]- Care Team Providers Care Laboratory Analyst Name Role Phone Caitlyn Bowie MD Primary Care Physician [phone] [place] [facility] [place] 05/13/22 - 06/12/22 [facility] [address] [place] [address]- [place] Allergies, Adverse Reactions, Alerts Substance Reaction [...] 0 Refills, Maintenance, 05/19/22 11:45:00 EST, [facility], Partial fill upon patient request [...] Physician Stop, 09/30/21 13:21:00 EDT, [facility], 160, cm, 09/24/21 16:15:00 EDT, [...] Team Personnel Name: Val Wynne Position: [facility] Onco RN Member Role: Primary Care Nurse Name: Karen Pittman RN Position: [facility] RN Member Role: Primary Care Nurse Name: Shilpi Mattson Position: Reference Physician Member Role: Primary Care Nurse Address: Address: [address] [place] [address] [address] [place] [address]- Name: Toyin Doherty RN Position: [facility] RN Member Role: Primary Care Nurse Name: Eben Hernandez NP Position: [facility] Associate Professional Member Role: Lifetime Consulting Provider Address: Address: [address] [place] [address]- Name: Alejandrina Turner RN Position: [facility] RN Member Role: Primary Care Nurse Name: Zoraida Felix RN Position: [facility] RN Member Role: Primary Care Nurse Name: Daphne Hokoer RN Position: [facility] RN Member Role: Primary Care Nurse Name: Nasima Gonzalez RN Position: [facility] RN Loyda Member Role: Primary Care Nurse Name: Caitlyn Bowie MD Position: [facility] Primary Care Physician Member Role: PCP Address: Address: [address] [place] [address]- [place] Name: Sheeba García Position: [facility] RN Member Role: Primary Care Nurse Name: Kiki Abdi RN Position: [facility] RN Member Role: Primary Care Nurse Name: Marry Reza Position: [facility] RN Member Role: Primary Care Nurse Name: Veronica Hurst [place] Position: [facility] PCO RN Member Role: Lifetime Consulting Physician Name: Maddie Herrera RN Position: [facility] RN Member Role: Primary Care Nurse Name: Raegan Baptiste RN Position: [facility] RN Member Role: Primary Care Nurse Name: Svitlana Marcum RN Position: [facility] AMB Nurse Member Role: Primary Care Nurse Name: She Pool Position: [facility] RN Member Role: Primary Care Nurse Name: Kaila Latham RN Position: [facility] ED RN W/OE and Tasks Member Role: Primary Care Nurse Name: Julio C Bahena Position: [facility] RN Member Role: Primary Care Nurse Name: Nasima Heredia RN Position: [facility] RN Member Role: Primary Care Nurse Name: Katherine Nixon PharmD Position: [facility] Associate Professional Member Role: Lifetime Consulting Provider Address: Address: [address] [place] [id number] Name: Daphne Barton RN Position: [facility] RN Member Role: Primary Care Nurse Name: Katherine Long RN Position: [facility] RN Member Role: Primary Care Nurse Name: Norma Serrano RN Position: [facility] RN Member Role: Primary Care Nurse Name: Aurea Kelly RN Position: [facility] RN Member Role: Primary Care Nurse Name: Seven Kelly RN Position: [facility] RN Member Role: Primary Care Nurse Name: Fani Perez RN Position: [facility] RN Member Role: Primary Care Nurse Name: Emely Her Position: [facility] RN Member Role: Primary Care Nurse Name: Yudith Rothman RN Position: [facility] RN Member Role: Primary Care Nurse Name: Parris Zuluaga RN Position: [facility] RN Member Role: Primary Care Nurse Care Team Related Persons Name: ZENAIDA FLORES Address: home [address] [place], [place] Name: TIA RIVERS Address: home [address] [place] [address] Name: JOHANN RETANA Address: home [place], [place]
--- OUTSIDE RECORDS SUMMARY | 2023-10-14 16:46 | XMS_ITS | Continuity of Care Document ---
Author Organization [facility] Address [address] [place] [address]- Care Team Providers Care Hr Recruiter Name Role Phone Caitlyn Bowie MD Primary Care Physician [phone] [facility]s): 01/20[facility]23 - 02/19/23 [facility] [address] [place], [place] [address] Allergies, Adverse Reactions, Alerts Substance [...] Member Role: Primary Care Nurse Address: Address: [address] [place] [address]- Name: Toyin Doherty RN Position: [facility] RN Member Role: Primary Care Nurse Name: Eben Hernandez NP Position: [facility] Associate Professional Member Role: Lifetime Consulting Provider Address: Address: [address] [place] [address]- [place] Name: Alejandrina Turner RN [facility]: [facility] Bowie MD Position: [facility] Physician - Primary Care Member Role: PCP Address: Address: [address] [place] [address]- [place] Name: Kiki Abdi RN Position: [facility] RN Member Role: Primary Care Nurse Name: Marry Reza Position: [facility] RN Member Role: Primary Care Nurse Name: Veronica Hurst [place] Position: [facility] SALLY JORGENSEN Member Role: Lifetime Consulting Physician Name: Maddie Herrera RN Position: [facility] AMB Nurse Member Role: Primary Care Nurse Name: Raegan Baptiste RN Position: [facility] RN Member Role: Primary Care Nurse Name: Svitlana Marcum RN Position: [facility] AMB Nurse Member Role: Primary Care Nurse [...] Care Nurse Name: Katherine Nixon PharmD Position: [facility] Associate Professional Member Role: Lifetime Consulting Provider Address: Address: [address] [place] [address] Name: Daphne Barton RN Position: [facility] [...] Team Related Persons Name: ZENAIDA FLORES Address: [place] [address] Name: TIA RIVERS Address: [place] [address] Name: JOHANN RETANA Address: [place] [address]
--- OUTSIDE RECORDS SUMMARY | 2023-10-14 16:46 | XMS_ITS | Continuity of Care Document ---
Author Organization [facility] Address [address] [address]- Care Team Providers Care Bilingual Trainer Name Role Phone Caitlyn Bowie MD Primary Care Physician [facility] Date(s): 03/11/21 - 04/10/21 [facility] [address] [address] Allergies, Adverse Reactions, Alerts Substance Reaction [...] times a day, Dr. primo Renee at [place], per pt, # 30 tablet, 0 Refills, [...]
--- OUTSIDE RECORDS SUMMARY | 2023-10-14 16:47 | XMS_ITS | Continuity of Care Document ---
Author Organization [facility] Address [address] [address]- Care Team Providers Care Pharmaceutical Representative Name Role Phone Caitlyn Bowie MD Primary Care Physician [facility]counter [facility] Date(s): 02/19/21 - 03/21/21 [facility] [address] [address] Allergies, Adverse Reactions, Alerts [...] times a day, Dr. primo Renee at [place], per pt, # 30 tablet, 0 Refills, [...]
--- OUTSIDE RECORDS SUMMARY | 2023-10-14 16:47 | XMS_ITS | Continuity of Care Document ---
Author Organization [facility] Address [address] [address]- Care Team Providers Care Power Plant Superintendent Name Role Phone Caitlyn Bowie MD Primary Care Physician [facility] Date(s): 11/24/21 - 12/24/21 [facility] [address] [address] Allergies, Adverse Reactions, Alerts Substance [...] day, 0 Refills, Maintenance, 11/06/21 12:44:00 EDT, [place], Partialfill upon patient request if the prescription [...] Refills, Maintenance, 11/09/21 9:33:00 EDT, EC Capsule, [facility], Partial fill upon patient [...]
--- OUTSIDE RECORDS SUMMARY | 2023-10-14 16:47 | XMS_ITS | Continuity of Care Document ---
Author Organization [facility] Address [address] [place] [address]- Care Team Providers Care Knitting Machine Operator Helper Name Role Phone Caitlyn Bowie MD Primary Care Physician [phone] [place] [facility] [place]): [place] 07/15/21 [facility] [address] [place] [address]- Encounter Diagnosis Subarachnoid bleed(Discharge Diagnosis) - 07/08/21 Attending Physician: Kay [facility] EXTENSION SPECIALIST, Rachel Allergies, Adverse Reactions, Alerts Substance Reaction [...] Start Date: 07/03/21 Status: Ordered nystatin topical 408337 u/gm powder 1 application, Topically, 3 times [...] Effective Dates Health Status Clinical Service Informant Subarachnoid bleed Discharge Diagnosis 07/08/21 Vital Signs Most recent to oldest [Reference Range]: 1 Height 160 cm (07/08/21 1:00 PM) Weight 56.7 kg (07/08/21 1:00 PM) Oxygen Saturation [94-100 %] 97 % (07/08/21 1:00 PM) Pulse Rate [55-90 bpm] 86 bpm (07/08/21 1:00 PM) Body Mass Index [18.5-24.99] 22.15 (07/08/21 1:00 PM) Blood Pressure [90-138/55-84 mm Hg] 106/ 56mm Hg (07/08/21 1:00 PM) Temperature [96.8-100.4 DegF] 98.6 DegF (07/08/21 1:00 PM) Blood pressure sites Arm, left (07/08/21 1:00 PM) Temperature Route Temporal (07/08/21 1:00 PM) Weight Obtained Via Standing scale (07/08/21 1:00 PM) Social History Social History Type Response Smoking Status Never smoker; Tobacc o user in household: No entered on: 04/05/17 Sex
--- OUTSIDE RECORDS SUMMARY | 2023-10-14 16:47 | XMS_ITS | Continuity of Care Document ---
Author Organization [facility] Address [address] [place] [address]- Care Team Providers Care Lead Quality Technician Name Role Phone Caitlyn Bowie MD Primary Care Physician [facility]s): 03/17/21 - 04/16/21 [facility] [address] [place], [place] [address] Allergies, Adverse Reactions, Alerts Substance Reaction [...]
--- OUTSIDE RECORDS SUMMARY | 2023-10-14 16:47 | XMS_ITS | Continuity of Care Document ---
Author Organization [facility] Address [address] [place] [address]- Care Team Providers Care Sort Worker Name Role Phone Caitlyn Bowie MD Primary Care Physician [facility] Date(s): 10/04/21 - 11/03/21 [facility] [address] [place], [place] [address] Allergies, Adverse Reactions, Alerts Substance Reaction Severity Status ciprofloxacin Active gentamicin Active penicillin 1 Active barium sulfate Active iodinated radiocontrast dyes Active Zithromax Active erythromycin Active vancomycin Active busPIRone Feeling [...] II opioi... Start Date: 11/02/21 Status: Ordered docusate sodium 100 mg oral [...]
--- OUTSIDE RECORDS SUMMARY | 2023-10-14 16:47 | XMS_ITS | Continuity of Care Document ---
Author Organization [facility] Address [address] [place] [address]- Care Team Providers Care Director Of Product Design Name Role Phone Caitlyn Bowie MD Primary Care Physician [facility] Date(s): 09/30/22 - 10/30/22 [facility] [address] [place], [place] [address] Allergies, Adverse Reactions, Alerts Substance Reaction Severity Status ciprofloxacin Active gentamicin Active erythromycin Active penicillin 1 Active busPIRone Feeling of throat ti ghtness Headache Dizziness Active morphine Active barium sulfate Active Voltaren Active Zithromax Active Flagyl Active vancomycin Active ipratropium Active sulfa drugs Active iodinated radiocontrast dyes Active Biaxin Active Gastrografin Active Levaquin Avocado Active Novocain Active Bee Stings Active Contrast Dye Active Avocado Active Shrimp Active Avelox Active Mold Active 1Allergy testing [...] Role: Primary Care Nurse Address: Address: [address] [place] [address] [address] [place] [address]- [place] Name: Toyin Doherty RN Position: [facility] RN Member Role: Primary Care Nurse Name: Eben Hernandez NP Position: [facility] Associate Professional Member Role: Lifetime Consulting Provider Address: Address: [address] [place] [address]- Name: Alejandrina Turner RN [facility]: [facility] Bowie MD Position: [facility] Primary Care Physician Member Role: PCP Address: Address: [address] [place] [address]- [place] Name: Sheeba García Position: S RN Member Role: Primary Care Nurse Name: Kiki Abdi RN Position: S RN Member Role: Primary Care Nurse Name: Marry Reza Position: S RN Member Role: Primary Care Nurse Name: Veronica Hurst [place] Position: [facility] PCO RN Member Role: Lifetime Consulting Physician Name: Maddie Herrera RN Position: [facility] RN [...] Nurse Name: Katherine Nixon PharmD Position: [facility] Associate Professional Member Role: Lifetime Consulting Provider Address: Address: [address] [place] [address] Name: Daphne Barton RN Position: [facility] [...] Team Related Persons Name: ZENAIDA FLORES Address: [place], [place] Name: TIA RIVERS Address: home [address] [place] [address] Name: JOHANN RETANA Address: home [place], [place]
--- OUTSIDE RECORDS SUMMARY | 2023-10-14 16:47 | XMS_ITS | Continuity of Care Document ---
Author Organization [facility] Address [address] [place] [address]- Care Team Providers Care Edge Inker Name Role Phone Caitlyn Bowie MD Primary Care Physician [facility]s): 09/27/22 - 10/27/22 [facility] [address] [place], [place] [address] Allergies, Adverse Reactions, Alerts Substance Reaction [...] Name: Val Wynne Position: [facility] Onco RN Member Role: Primary Care Nurse Name: Karen Pittman RN Position: S RN Member Role: Primary Care Nurse Name: Shilpi Mattson Position: Reference Physician Member Role: Primary Care Nurse Address: Address: [address] [place] [address] [address] [place] [address]- [place] Name: Toyin Doherty RN Position: [facility] RN Member Role: Primary Care Nurse Name: Eben Hernandez NP Position: [facility] Associate Professional Member Role: Lifetime Consulting Provider Address: Address: [address] [place] [address]- Name: Alejandrina Turner RN Position: [facility] RN Member Role: Primary Care Nurse Name: Zoraida Felix RN Position: [facility] RN Member Role: Primary Care Nurse Name: Daphne Hooker RN Position: [facility] RN Member Role: Primary Care Nurse Name: Nasima Gonzalez RN Position: [facility] RN Supv Member Role: Primary Care Nurse Name: Caitlyn Bowie MD Position: [facility] Primary Care Physician Member Role: PCP Address: Address: [address] [place] [address] [place] Name: Sheeba García Position: S RN Member Role: Primary Care Nurse Name: Kiki Abdi RN Position: S RN Member Role: Primary Care Nurse Name: Marry Reza Position: S RN Member Role: Primary Care Nurse Name: Veronica Hurst [place] Position: [facility] PCO RN Member Role: Lifetime Consulting Physician Name: Maddie Herrera RN Position: [facility] RN Member Role: Primary Care Nurse Name: Raegan Baptiste RN Position: [facility] RN Member Role: Primary Care Nurse Name: Svitlana Marcum RN Position: [facility] AMB Nurse Member Role: Primary Care Nurse Name: She Pool Position: [facility] RN Member Role: Primary Care Nurse Name: Kaila Latham RN Position: [facility] RN Member Role: Primary Care Nurse Name: Julio C Bahena Position: [facility] RN Member Role: Primary Care Nurse Name: Nasima Heredia RN Position: [facility] RN Member Role: Primary Care Nurse Name: Katherine Nixon PharmD Position: [facility] Associate Professional Member Role: Lifetime Consulting Provider Address: Address: [address] [place] [address] Name: Daphne Barton RN Position: [facility] RN Member Role: Primary Care Nurse Name: Katherine Long RN Position: [facility] RN Member Role: Primary Care Nurse Name: Norma Serrano RN Position: [facility] RN Member Role: Primary Care Nurse Name: Seven Kelly RN Position: [facility] RN Member Role: Primary Care Nurse Name: Fani Perez RN Position: [facility] RN Member Role: Primary Care Nurse Name: Hattie Brewster RN Position: [facility] RN Member Role: Primary Care Nurse Name: Yudith Rothman RN Position: [facility] Onco RN Member Role: Primary Care Nurse Name: Kelly Hernandez RN Position: [facility] RN Member Role: Primary Care Nurse Name: Parris Zuluaga RN Position: [facility] RN Member Role: Primary Care Nurse Care Team Related Persons Name: ZENAIDA FLORES Address: [place], [place] Name: TIA RIVERS Address: home [address] [place] [address] Name: JOHANN RETANA Address: home [place], [place]
--- OUTSIDE RECORDS SUMMARY | 2023-10-14 16:47 | XMS_ITS | Continuity of Care Document ---
Author Organization [facility] Address [address] [place] [address]- Care Team Providers Care Post Doc Fellowship Name Role Phone Caitlyn Bowie MD Primary Care Physician [phone] [facility]counter [facility] Date(s): 08/29/22 - 09/28/22 [facility] [address] [place], [place] [address] Allergies, Adverse Reactions, Alerts Substance [...] Care Team Personnel Name: Val Wynne Position: [facility] Onco RN Member Role: Primary Care Nurse Name: Karen Pittman RN Position: [facility] RN Member Role: Primary Care Nurse Name: Shilpi Mattson Position: Reference Physician Member Role: Primary Care Nurse Address: Address: [address] [place] [address] [address] [place] [address]- Name: Toyin Doherty RN Position: [facility] RN Member Role: Primary Care Nurse Name: Eben Hernandez NP Position: [facility] Associate Professional Member Role: Lifetime Consulting Provider Address: Address: [address] [place] [address]- Name: Alejandrina Turner RN Position: [facility] RN Member Role: Primary Care Nurse Name: Zoraida Felix RN Position: [facility] RN Member Role: Primary Care Nurse Name: Daphne Hooker RN Position: [facility] RN Member Role: Primary Care Nurse Name: Nasima Gonzalez RN Position: [facility] RN Suprodney Member Role: Primary Care Nurse Name: Caitlyn Bowie MD Position: [facility] Primary Care Physician Member Role: PCP Address: Address: [address] [place] [address]- Name: Sheeba García Position: [facility] RN Member Role: Primary Care Nurse Name: Kiki Abdi RN Position: [facility] RN Member Role: Primary Care Nurse Name: Marry Reza Position: [facility] RN Member Role: Primary Care Nurse Name: Veronica Hurst MA Position: [facility] PCO RN Member Role: Lifetime Consulting Physician Name: Maddie Herrera RN Position: [facility] RN Member Role: Primary Care Nurse Name: Raegan Baptiste RN Position: [facility] RN Member Role: Primary Care Nurse Name: Svitlana Marcum RN Position: [facility] AMB Nurse Member Role: Primary Care Nurse Name: She Pool Position: [facility] RN Member Role: Primary Care Nurse Name: Kaila Latham RN Position: [facility] RN Member Role: Primary Care Nurse Name: Julio C Bahean Position: [facility] RN Member Role: Primary Care Nurse Name: Nasima Heredia RN Position: [facility] RN Member Role: Primary Care Nurse Name: Katherine Nixon PharmD Position: [facility] Associate Professional Member Role: Lifetime Consulting Provider Address: Address: [address] [place] [address] Name: Daphne Barton RN Position: [facility] RN Member Role: Primary Care Nurse Name: Katherine Long RN Position: [facility] RN Member Role: Primary Care Nurse Name: Norma Serrano RN Position: [facility] RN Member Role: Primary Care Nurse Name: Seven Kelly RN Position: [facility] RN Member Role: Primary Care Nurse Name: Fani Perez RN Position: [facility] RN Member Role: Primary Care Nurse Name: Hattie Brewster RN Position: [facility] RN Member Role: Primary Care Nurse Name: Yudith Rothmna RN Position: [facility] Onco RN Member Role: Primary Care Nurse Name: Kelly Hernandez RN Position: [facility] RN Member Role: Primary Care Nurse Name: Parris Zuluaga RN Position: [facility] RN Member Role: Primary Care Nurse Care Team Related Persons Name: ZENAIDA FLORES Address: [place], [place] Name: TIA RIVERS Address: home [address] [place] [address] Name: JOHANN RETANA Address: [place], [place]
--- OUTSIDE RECORDS SUMMARY | 2023-10-14 16:47 | XMS_ITS | Continuity of Care Document ---
Author Organization [facility] Address [address] [place] [address]- Care Team Providers Care Seed Buyer Name Role Phone Caitlyn Bowie MD Primary Care Physician [phone] [facility] Date(s): 12/23/21 - 12/30/21 [facility] [address] [place], [place] [address] Attending Physician: Ronaldo Castillo MD Allergies, Adverse Reactions, Alerts Substance Reaction [...] day, 0 Refills, Maintenance, 11/06/21 12:44:00 EDT, [place], Partialfill upon patient request if the prescription [...] Refills, Maintenance, 11/09/21 9:33:00 EDT, EC Capsule, [facility], Partial fill upon patient [...] oldest [Reference Range]: 1 Height 160 cm (12/23/21 8:08 AM) Weight 58.6 kg (12/23/21 8:08 AM) Oxygen Saturation [94-100 %] 99 % (12/23/21 8:08 AM) Pulse Rate [55-90 bpm] 73 bpm (12/23/21 8:08 AM) Body Mass Index [18.5-24.99] 22.89 (12/23/21 8:08 AM) Blood Pressure [90-138/55-84 mm Hg] 138/ 82mm Hg (12/23/21 8:08 AM) Mode of Delivery (Oxygen) Room air (12/23/21 8:08 AM) Blood pressure sites Arm, left (12/23/21 8:08 AM) Social History Social History Type Response Smoking Status Never smoker; Tobacc o user in household: No entered on: 04/05/17 Sex
--- OUTSIDE RECORDS SUMMARY | 2023-10-14 16:48 | XMS_ITS | Continuity of Care Document ---
Author Organization [facility] Address [address] [place] [address]- Care Team Providers Care Certified Medical Asst Name Role Phone Caitlyn Bowie MD Primary Care Physician [phone] [facility] Date(s): 03/15/23 - 04/14/23 [facility] [address] [place], [place] [address] Allergies, Adverse Reactions, Alerts Substance Reaction Severity Status ciprofloxacin Active busPIRone Feeling of throat ti ghtness Headache Dizziness Active barium sulfate Active sulfa drugs Active gentamicin Active erythromycin Active penicillin 1 Active vancomycin Active ipratropium Active morphine Active iodinated radiocontrast dyes Active Voltaren Active Biaxin Active Gastrografin Active Levaquin Avocado Active Zithromax Active Flagyl Active Novocain Active Bee Stings Active Contrast [...] ; Start Date: 07/03/21 Status: Ordered elderberry = 350 mg, By Mouth, Daily, 0 Refills, Maintenance, 03/24/23 10:40:00 EDT, Partial fill upon patientrequest if the prescription is for a schedule II opioid drug. Start Date: 03/24/23 Status: Ordered elderberry oral liquid 15 mL, [...] Care Team Personnel Name: Val Wynne Position: [facility] Onco RN Member Role: Primary Care Nurse Name: Karen Pittman RN Position: [facility] RN Member Role: Primary Care Nurse Name: Shilpi Mattson Position: Reference Physician Member Role: Primary Care Nurse Address: Address: [address] [place] [address]- Name: Toyin Doherty RN Position: [facility] RN Member Role: Primary Care Nurse Name: Eben Hernandez NP Position: [facility] Associate Professional Member Role: Lifetime Consulting Provider Address: Address: [address] [place] [address]- Name: Alejandrina Turner RN Position: [facility] RN Member Role: Primary Care Nurse Name: Zoraida Felix RN Position: [facility] RN Member Role: Primary Care Nurse Name: Daphne Hooker RN Position: [facility] RN Member Role: Primary Care Nurse Name: Nasima Gonzalez RN Position: [facility] RN Loyda Member Role: Primary Care Nurse Name: Caitlyn Bowie MD Position: [facility] Physician - Primary Care Member Role: PCP Address: Address: [address] [place] [address]- Name: Kiki Abdi RN Position: [facility] RN Member Role: Primary Care Nurse Name: Marry Reza Position: S RN Member Role: Primary Care Nurse Name: Veronica Hurst [place] Position: [facility] SALLY JORGENSEN Member Role: Lifetime Consulting Physician Name: Maddie Herrera RN Position: [facility] AMB Nurse Member Role: Primary Care Nurse Name: Raegan Baptiste RN Position: [facility] RN Member Role: Primary Care Nurse Name: She Pool Position: [facility] RN Member Role: Primary Care Nurse Name: Kaila Latham RN Position: [facility] RN Member Role: Primary Care Nurse Name: Julio C Bahena Position: [facility] RN Member Role: Primary Care Nurse Name: Nasima Heredia RN Position: [facility] RN Member Role: Primary Care Nurse Name: Katherine Nixon PharmD Position: [facility] Associate Professional Member Role: Lifetime Consulting Provider Address: Address: [address] [place] [address] Name: Daphne Barton RN Position: [facility] RN Member Role: Primary Care Nurse Name: Katherine Long RN Position: [facility] RN Member Role: Primary Care Nurse Name: Norma Serrano RN Position: [facility] RN Member Role: Primary Care Nurse Name: Seven Kelly RN Position: [facility] RN Member Role: Primary Care Nurse Name: Fani Perez RN Position: [facility] RN Member Role: Primary Care Nurse Name: Hattie Brewster RN Position: [facility] RN Member Role: Primary Care Nurse Name: Yudith Rothman RN Position: [facility] Onco RN Member Role: Primary Care Nurse Name: Kelly Hernandez RN Position: [facility] RN Member Role: Primary Care Nurse Name: Parris Zuluaga RN Position: [facility] RN Member Role: Primary Care Nurse Care Team Related Persons Name: ZENAIDA FLORES Address: [place] [address] Name: TIA RIVERS Address: [place] [address] Name: JOHANN RETANA Address: [place] [address]
--- OUTSIDE RECORDS SUMMARY | 2023-10-14 16:48 | XMS_ITS | Continuity of Care Document ---
Author Organization [facility] Address [address] [place] [address]- Care Team Providers Care Dietary Aide Name Role Phone Caitlyn Bowie MD Primary Care Physician Encounter [facility] Date(s): 03/05/22 - 03/06/[address] [address]- Discharge Disposition: A-D/C Walkout Attending Physician: Not on Staff, Attending MD Admitting Physician: Not on Staff, Admitting MD Referring Physician: Not on Staff, Referring MD Allergies, Adverse Reactions, Alerts Substance Reaction Severity Status ciprofloxacin Active gentamicin Active erythromycin Active penicillin 1 Active vancomycin Active ipratropium Active morphine Active barium sulfate Active sulfa drugs Active Voltaren Active Zithromax Active Flagyl Active Novocain Active Biaxin Active Gastrografin Active Levaquin Avocado Active iodinated radiocontrast dyes Active Avelox Active Bee Stings Active Contrast [...] day, 0 Refills, Maintenance, 11/06/21 12:44:00 EDT, [place], Partialfill upon patient request if the prescription [...] Maintenance, 11/09/21 9:33:00 EDT, EC Capsule, [facility], Partial fill upon [...] (venous thromboembolism)(Confirmed) Active 1left eye 2lower extrem Results Radiology Reports * Exam Date Time Procedure Performing Provider Status 03/06/22 3:11 AM Chest 2 Views Frontal and Lat Yang Vega; Auth (Verified) Notes: (Chest 2 Views Frontal and Lat) Reason For Exam: Chest Pain;Other: RESULT: Chest 2 Views Frontal and Lat Chest 2 Views Frontal and Lat Hx of Present Illness: pt complains of chest pain and cough; Reason: Other:; Chest Pain; Clinical Question(s): Other: / Other: COMPARISON: 01/08/2022 FINDINGS: LINES AND TUBES: None. LUNGS AND PLEURA: Persistent volume loss in the left hemithorax. Right lung is clear. Small left pleural effusion, similar to prior. Left basilar atelectasis. No pneumothorax. HEART, MEDIASTINUM AND PAULIE: Unchanged. BONES AND SOFT TISSUES: No acute abnormality. IMPRESSION: Small left pleural effusion and underlying atelectasis is similar to the prior study. WSN: [id number] Ordering Physician: Michelle Teran Dictated By: Andre Neumann MD Dictated Date/Time: 03/06/22 7:55 am Reviewed By: Andre Neumann MD Signed By: Andre Neumann MD Signed Date/Time: 03/06/22 7:55 am Transcribed By: CSAaron Transcribed Date/Time: 03/06/22 7:54 am Vital Signs Most recent to oldest [Reference Range]: 1 2 3 Oxygen Saturation [94-100 %] 98 % (03/06/22 9:32 AM) 99 % (03/06/22 7:15 AM) 99 % (03/06/22 4:19 AM) Pulse Rate [55-90 bpm] 74 bpm (03/06/22 9:32 AM) 77 bpm (03/06/22 7:15 AM) 83 bpm (03/06/22 4:19 AM) Blood Pressure [90-138/55-84 mm Hg] 135/74mm Hg (03/06/22 9:32 AM) 146/70mm Hg *H* (03/06/22 7:15 AM) 127/67mm Hg (03/06/22 4:19 AM) Respiratory Rate [16-30 br/min] 18 br/min (03/06/22 9:32 AM) 16 br/min (03/06/22 7:15 AM) 18 br/min (03/06/22 4:19 AM) Temperature [96.8-100.4 DegF] 99.1 DegF (03/06/22 9:32 AM) 99.0 DegF (03/06/22 7:15 AM) 100.2 DegF (03/06/22 12:06 AM) Mode of Delivery (Oxygen) Room air (03/06/22 9:32 AM) Room air (03/06/22 7:15 AM) Room air (03/06/22 4:19 AM) Blood pressure sites Arm, right (03/06/22 9:32 AM) Arm, left (03/06/22 12:06 AM) Temperature Route Oral (03/06/22 9:32 AM) Oral (03/06/22 7:15 AM) Oral (03/06/22 12:06 AM) Social History Social History Type Response Smoking Status Never smoker; Tobacc o user in household: No entered on: 04/05/17 Sex Note * BHSPowerscribe , CIS S: TRANSCRIBE Andre Neumann MD: VERIFY Event Display: Result: Authored Date: [id number] Chest 2 Views Frontal and Lat Hx of Present Illness: pt complains of chest pain and cough; Reason: Other:; Chest Pain; Clinical Question(s): Other: / Other: COMPARISON: 01/08/2022 FINDINGS: LINES AND TUBES: None. LUNGS AND PLEURA: Persistent volume loss in the left hemithorax. Right lung is clear. Small left pleural effusion, similar to prior. Left basilar atelectasis. No pneumothorax. HEART, MEDIASTINUM AND PAULIE: Unchanged. BONES AND SOFT TISSUES: No acute abnormality. IMPRESSION: Small left pleural effusion and underlying atelectasis is similar to the prior study. WSN: [id number] Ordering Physician: Michelle Terna Dictated By: Andre Neumann MD Dictated Date/Time: 03/06/22 7:55 am Reviewed By: Andre Neumann MD Signed By: Andre Neumann MD Signed Date/Time: 03/06/22 7:55 am Transcribed By: MART Transcribed Date/Time: 03/06/22 7:54 am Care Team Personnel Name: Caitlyn Bowie MD Address: [address] [place] [address]
--- OUTSIDE RECORDS SUMMARY | 2023-10-14 16:48 | XMS_ITS | Continuity of Care Document ---
Author Organization [facility] Address [address] [place] [address]- Care Team Providers Care Rug Dyer Helper Name Role Phone Caitlyn Bowie MD Primary Care Physician [place] [facility] [place] 07/26/23 - 08/26/23 [facility] [address] [place] [address]- Attending Physician: Not on Staff, Attending MD [...] Care Team Personnel Name: Val Wynne Position: [facility] Onco RN Member Role: Primary Care Nurse Name: Karen Pittman RN Position: [facility] RN Member Role: Primary Care Nurse Name: Shilpi Mattson Position: Reference Physician Member Role: Primary Care Nurse Address: Address: [address] [place] [address]- [place] Name: Toyin Doherty RN Position: S RN Member Role: Primary Care Nurse Name: Eben Hernandez NP Position: [facility] Associate Professional Member Role: Lifetime Consulting Provider Address: Address: [address] [place] [address]- Name: Alejandrina Turner RN Position: [facility] RN Member Role: Primary Care Nurse Name: Zoraida Felix RN Position: [facility] ED RN W/OE and Tasks Member Role: Primary Care Nurse Name: Jaye Harley Position: [facility] Automotive Worker Foreman Member Role: Contact Agent Name: Daphne Hooker RN Position: [facility] RN Member Role: Primary Care Nurse Name: Nasima Gonzalez RN Position: [facility] RN Supv Member Role: Primary Care Nurse Name: Caitlyn Bowie MD Position: [facility] Physician - Primary Care Member Role: PCP Address: Address: [address] [place] [address]- Name: Kiki Abdi RN Position: [facility] RN Member Role: Primary Care Nurse Name: Marry Reza Position: [facility] RN Member Role: Primary Care Nurse Name: Veronica Hurst MA Position: [facility] AMB [place] Member Role: Lifetime Consulting Physician Name: Maddie Herrera RN Position: [facility] AMB Nurse Member Role: Primary Care Nurse Name: Yudith Herrera RN Position: [facility] Onco RN Member Role: Primary Care Nurse Name: Raegan Baptiste RN Position: [facility] RN Member Role: Primary Care Nurse Name: She Pool Position: [facility] RN Member Role: Primary Care Nurse Name: Kaila Latham RN Position: [facility] RN Member Role: Primary Care Nurse Name: Julio C Bahena Position: [facility] RN Member Role: Primary Care Nurse Name: Nasima Heredia RN Position: [facility] RN Member Role: Primary Care Nurse Name: Katherine Nixon PharmD Position: [facility] Associate Professional Member Role: Lifetime Consulting Provider Address: Address: [address] [place] [address] - Name: Daphne Barton RN Position: [facility] RN Member Role: Primary Care Nurse Name: Katherine Long RN Position: [facility] RN Member Role: Primary Care Nurse Name: Norma Serrano RN Position: [facility] RN Member Role: Primary Care Nurse Name: Seven Kelly RN Position: [facility] MADELINE RN W/OE and Tasks Member Role: Primary Care Nurse Name: Fani Perez RN Position: [facility] RN Member Role: Primary Care Nurse Name: Hattie Brewster RN Position: [facility] RN Member Role: Primary Care Nurse Name: Kelly Hernandez RN Position: [facility] RN Member Role: Primary Care Nurse Name: Pallavi Wylie LPN Position: S RN Member Role: Primary Care Nurse Name: Parris Zuluaga RN Position: S RN Member Role: Primary Care Nurse Care Team Related Persons Name: ZENAIDA FLORES Address: [place] [address] Name: TIA RIVERS Address: [place] [address] Name: JOHANN RETANA Address: [place] [address]
--- OUTSIDE RECORDS SUMMARY | 2023-10-14 16:48 | XMS_ITS | Continuity of Care Document ---
Author Organization [facility] Address [address] [place] [address]- Care Team Providers Care Voicer Name Role Phone Caitlyn Bowie MD Primary Care Physician [phone] [facility] Date[facility]s): 08/02/21 - 09/01/21 [facility] [address] [place], [place] [address] Allergies, Adverse Reactions, Alerts [...]
--- OUTSIDE RECORDS SUMMARY | 2023-10-14 16:48 | XMS_ITS | Continuity of Care Document ---
Author Organization [facility] Address [address] [place] [address]- Care Team Providers Care Store Grocery Merchandiser Name Role Phone Caitlyn Bowie MD Primary Care Physician [facility] Date(s): 08/24/22 - 09/23/22 [facility] [address] [place] [address]- [place] Allergies, Adverse Reactions, Alerts Substance Reaction [...] Care Team Personnel Name: Val Wynne Position: [facility] Onco RN Member Role: Primary Care Nurse Name: Karen Pittman RN Position: [facility] RN Member Role: Primary Care Nurse Name: Shilpi Mattson Position: Reference Physician Member Role: Primary Care Nurse Address: Address: [address] [place] [address] [address] [place] [address]- [place] Name: Toyin Doherty RN Position: [facility] RN Member Role: Primary Care Nurse Name: Eben Hernandez NP Position: [facility] Associate Professional Member Role: Lifetime Consulting Provider Address: Address: [address] [place] [address]- Name: Alejandrina Turner RN Position: [facility] RN Member Role: Primary Care Nurse Name: Zoraida Felix RN Position: [facility] RN Member Role: Primary Care Nurse Name: Daphne Hooker RN Position: [facility] RN Member Role: Primary Care Nurse Name: Nasima Gonzalez RN Position: [facility] RN Supv Member Role: Primary Care Nurse Name: Caitlyn Bowie MD Position: [facility] Primary Care Physician Member Role: PCP Address: Address: [address] [place] [address]- Name: Sheeba García Position: [facility] RN Member Role: Primary Care Nurse Name: Kiki Abdi RN Position: [facility] RN Member Role: Primary Care Nurse Name: Marry Reza Position: [facility] RN Member Role: Primary Care Nurse Name: Veronica Hurst [place] Position: [facility] PCO RN Member Role: Lifetime Consulting Physician Name: Maddie Herrera RN Position: [facility] RN Member Role: Primary Care Nurse Name: Raegan Baptiste RN Position: [facility] RN Member Role: Primary Care Nurse Name: Svitlana Marcum RN Position: [facility] AMB Nurse Member Role: Primary Care Nurse Name: She Pool Position: [facility] RN Member Role: Primary Care Nurse Name: Kaila Latham RN Position: [facility] RN Member Role: Primary Care Nurse Name: Julio C Bahena Position: [facility] RN Member Role: Primary Care Nurse Name: Nasima Heredia RN Position: [facility] RN Member Role: Primary Care Nurse Name: Katherine Nixon PharmD Position: [facility] Associate Professional Member Role: Lifetime Consulting Provider Address: Address: [address] [place] [address] Name: Daphne Barton RN Position: [facility] RN Member Role: Primary Care Nurse Name: Katherine Long RN Position: [facility] RN Member Role: Primary Care Nurse Name: Norma Serrano RN Position: [facility] RN Member Role: Primary Care Nurse Name: Seven Kelly RN Position: [facility] RN Member Role: Primary Care Nurse Name: Fani Perez RN Position: [facility] RN Member Role: Primary Care Nurse Name: Hattie Brewster RN Position: [facility] RN Member Role: Primary Care Nurse Name: Yudith Rothman RN Position: [facility] Onco RN Member Role: Primary Care Nurse Name: Kelly Hernandez RN Position: [facility] RN Member Role: Primary Care Nurse Name: Parris Zuluaga RN Position: [facility] RN Member Role: Primary Care Nurse Care Team Related Persons Name: ZENAIDA FLORES Address: [place] [address] Name: TIA RIVERS Address: home [address] [place] [address] Name: JOHANN RETANA Address: [place] [address]
--- OUTSIDE RECORDS SUMMARY | 2023-10-14 16:48 | XMS_ITS | Continuity of Care Document ---
Author Organization [facility] Address [address] [place] [address]- Care Team Providers Care Clip Riveter Name Role Phone Caitlyn Bowie MD Primary Care Physician [phone] Encounter [facility] Date(s): 10/13/22 - 11/12/22 [facility] [address], [place] [address] Attending Physician: Melissa Morrison Admitting Physician: AdmtrMelissa [...] Date: 05/16/22 Status: Ordered Lidoderm 5% film See Instructions, [...] Care Nurse Name: Karen Pittman RN Position: [facility] RN Member Role: Primary Care Nurse Name: Shilpi Mattson Position: Reference Physician Member Role: Primary Care Nurse Address: Address: [address] [place] [address] [address] [place] [address]- Name: Toyin Doherty RN Position: [facility] RN Member Role: Primary Care Nurse Name: Eben Hernandez NP Position: [facility] Associate Professional Member Role: Lifetime Consulting Provider Address: Address: [address] [place] [address]- Name: Alejandrina Turner RN [facility] Physician Member Role: PCP Address: Address: [address] [place] [address]- Name: Diya YEH Sheeba Position: [facility] RN Member Role: Primary Care Nurse Name: Kiki Abdi RN Position: [facility] RN Member Role: Primary Care Nurse Name: Marry Reza Position: [facility] RN Member Role: Primary Care Nurse Name: Maddie Herrera RN [facility] Care Nurse Name: Katherine Nixon PharmD Position: [facility] Associate Professional Member Role: Lifetime Consulting Provider Address: Address: [address] [place] [address] - Name: Daphne Barton RN Position: [facility] [...] Team Related Persons Name: ZENAIDA FLORES Address: [place], [place] Name: TIA RIVERS Address: [address] [address] Name: JOHANN RETANA Address: [place], [place]
--- OUTSIDE RECORDS SUMMARY | 2023-10-14 16:49 | XMS_ITS | Continuity of Care Document ---
Author Organization [facility] Address [address] [place] [address]- Care Team Providers Care Rigging Up Man Name Role Phone Brennan Burnett MD Primary Care Physician [phone] Encounter [facility] Date(s): 07/24/20 - 08/23/20 [facility] [address] [place] [address]- Allergies, Adverse Reactions, Alerts Substance Reaction Severity [...] By Mouth, Daily, Dr. primo Renee at [facility], # 30 tablet, 0 Refills, Maintenance, 01/26/18 [...]
--- OUTSIDE RECORDS SUMMARY | 2023-10-14 16:49 | XMS_ITS | Continuity of Care Document ---
Author Organization [facility] Address [address] [place] [address]- Care Team Providers Care Concrete Stone Fabricator Name Role Phone Peewee STARK, Sharon Primary Care Physician Encounter [facility] Date(s): 02/20/20 - 03/21/20 [facility] [address] [place] [address]- [facility] Allergies, Adverse Reactions, Alerts Substance Reaction Severity [...] By Mouth, Daily, Dr. primo Renee at [facility], # 30 tablet, 0 Refills, Maintenance, 01/26/18 16:36:23 EDT, ER Tablet Start Date: 01/26/18 Status: Ordered metroNIDAZOLE 500 mg oral tablet 1 tablet = 500 mg, By Mouth, Every 8 hours, may take with food to minimize abdominal discomfort, # 18 tablet, 0 Refills, Maintenance, 09/06/19 14:42:00 EST, Tablet, [facility], 160, cm,09/06/19 7:35:00 EST, [...]
--- OUTSIDE RECORDS SUMMARY | 2023-10-14 16:49 | XMS_ITS | Continuity of Care Document ---
Author Organization [facility] ter Address [address] [place] [address]- Care Team Providers Care Die Repair Machinist Name Role Phone Caitlyn Bowie MD Primary Care Physician [phone] Encounter [facility] Date(s): 04/07/22 - 07/22/[address] [address]- Encounter Diagnosis Non-ST elevation (NSTEMI) myocardial infarction(Final) - Discharge Disposition: A-D/C Home Attending Physician: Rabia STARK, Ashequl Admitting Physician: Rabia STARK, Ashequl Referring Physician: Rabia STARK, Ashequl Allergies, Adverse Reactions, Alerts Substance Reaction Severity [...] Physician Stop, 09/30/21 13:21:00 EDT, [facility], 160, cm, 09/24/21 16:15:00 EDT, Height, 57.5, kg, 09/24/21 1:23:00 EDT... Start Date: 09/30/21 Status: Ordered mirtazapine 7.5 mg oral tablet 1 tablet = 7.5 mg, By Mouth, Daily at bedtime, # 30 tablet, 1 Refills, Maintenance, 06/28/22 14:17:00 EST, [facility], Partial fill upon patient request [...] in household: No entered on: 04/05/17 Sex Deprecated Cardiac rehabilitation treatment plan Progress note and attainment of goals (narrative) * Gertrude Castle RN: PERFORM, SIGN, VERIFY Event Display: Cardiac Rehab Note Authored Date: [id number] Patient: CINDA WATSON Age: 77 years Sex: Female : 1945 Associated Diagnoses: None Author: Gertrude Castle RN Spoke with pt on telephone. She has not been to cardiac rehab since 05/18/22. Pt had recent hospitaladmission and is still getting VNA, PT, OT at home for at least another 3 weeks. Advised DC from program for now and pt can call to schedule a new orientation once able to. Note * Event Display: Cardiac Rehab Telemetry Report Authored Date: * Event Display: Cardiac Rehab Telemetry Report Authored Date: Patient Care team information Care Team Personnel Name: Val Wynne Position: [facility] Onco RN Member Role: Primary Care Nurse Name: Karen Pittman RN Position: S RN Member Role: Primary Care Nurse Name: Shilpi Mattson Position: Reference Physician Member Role: Primary Care Nurse Address: Address: [address] [place] [address] [address] [place] [address]- [place] Name: Toyin Doherty RN Position: [facility] RN Member Role: Primary Care Nurse Name: Eben Hernandez NP Position: [facility] Associate Professional Member Role: Lifetime Consulting Provider Address: Address: [address] [place] [address]- Name: Alejandrina Turner RN Position: [facility] RN Member Role: Primary Care Nurse Name: Zoraida Felix RN Position: [facility] RN Member Role: Primary Care Nurse Name: Daphne Hooker RN Position: [facility] RN Member Role: Primary Care Nurse Name: Nasima Gonzalez RN Position: [facility] RN Supv Member Role: Primary Care Nurse Name: Caitlyn Bowie MD Position: [facility] Primary Care Physician Member Role: PCP Address: Address: [address] [place] [address]- Name: Sheeba García Position: [facility] RN Member Role: Primary Care Nurse Name: Kiki Abdi RN Position: [facility] RN Member Role: Primary Care Nurse Name: Marry Reza Position: [facility] RN Member Role: Primary Care Nurse Name: Veronica Hurst [place] Position: [facility] PCO RN Member Role: Lifetime Consulting Physician Name: Maddie Herrera RN Position: [facility] RN Member Role: Primary Care Nurse Name: Raegan Baptiste RN Position: [facility] RN Member Role: Primary Care Nurse Name: Svitlana Marcum RN Position: [facility] AMB Nurse [...] Care Nurse Name: Katherine Nixon PharmD Position: [facility] Associate Professional Member Role: Lifetime Consulting Provider Address: Address: [address] [place] [address] Name: aDphne Barton RN Position: [facility] RN Member Role: Primary Care Nurse Name: Katherine Long RN Position: [facility] RN Member Role: Primary Care Nurse Name: Norma Serrano RN Position: [facility] RN Member Role: Primary Care Nurse Name: Aurea Kelly RN Position: [facility] RN Member Role: Primary Care Nurse Name: Seven Kelly RN Position: [facility] RN Member Role: Primary Care Nurse Name: Fani Perez RN Position: [facility] RN Member Role: Primary Care Nurse Name: Yudith Rothman RN Position: [facility] RN Member Role: Primary Care Nurse Name: Parris Zuluaga RN Position: [facility] RN Member Role: Primary Care Nurse Care Team Related Persons Name: ZENAIDA FLORES Address: [place] [address] Name: TIA RIVERS Address: home [address] [place] [address] Name: JOHANN RETANA Address: [place] [address]
--- OUTSIDE RECORDS SUMMARY | 2023-10-14 16:49 | XMS_ITS | Continuity of Care Document ---
Author Organization [facility] Address [address] [place] [address]- Care Team Providers Care Service Car Driver Name Role Phone Caitlyn Bowie MD Primary Care Physician [facility]counter [facility] Date(s): 05/10/23 - 06/09/23 [facility] [address] [place], [place] [address] Allergies, Adverse Reactions, Alerts Substance Reaction Severity Status ciprofloxacin Active gentamicin Active clindamycin throat tightening Active vancomycin Active busPIRone Feeling of throat ti ghtness Headache Dizziness Active barium sulfate Active sulfa drugs Active Voltaren Active Zithromax Active Flagyl Active erythromycin Active penicillin 1 Active ipratropium Active morphine Active iodinated radiocontrast dyes Active Biaxin Active Novocain Active Gastrografin Active Bee Stings Active Contrast Dye Active Mold Active Avocado Active Levaquin Avocado Active Avelox Active Shrimp Active 1Allergy testing doen 09/26 [...] Nurse Name: Karen Pittman RN Position: [facility] RN Member Role: Primary Care Nurse Name: Shilpi Mattson Position: Reference Physician Member Role: Primary Care Nurse Address: Address: [address] [place] [address]- [place] Name: Toyin Doherty RN Position: [facility] RN Member Role: Primary Care Nurse Name: Eben Hernandez NP Position: [facility] Associate Professional Member Role: Lifetime Consulting Provider Address: Address: [address] [place] [address]- [place] Name: Alejandrina Turner RN Position: [facility] RN Member Role: Primary Care Nurse Name: Zoraida Felix RN Position: [facility] ED RN W/OE and Tasks Member Role: Primary Care Nurse Name: Daphne Hooker RN Position: [facility] RN Member Role: Primary Care Nurse Name: Nasima Gonzalez RN Position: [facility] RN Supv Member Role: Primary Care Nurse Name: Caitlyn Bowie MD Position: [facility] Physician - Primary Care Member Role: PCP Address: Address: [address] [place] [address]- [place] Name: Kiki Abdi RN Position: [facility] RN Member Role: Primary Care Nurse Name: Marry Reza Position: S RN Member Role: Primary Care Nurse Name: Veronica Hurst [place] Position: [facility] SALLY JORGENSEN Member Role: Lifetime Consulting Physician Name: Yudith Ruiz RN Position: [facility] Onco RN Member Role: Primary Care Nurse Name: Maddie Herrera RN [facility]: [facility] Heredia RN Position: [facility] ED RN W/OE and Tasks Member Role: Primary Care Nurse Name: Katherine Nixon PharmD Position: [facility] Associate Professional Member Role: Lifetime Consulting Provider Address: Address: [address] [place] [address] Name: Daphne Barton RN [facility] Care Nurse Name: Pallavi Wylie LPN Position: [facility] RN Member Role: Primary Care Nurse Name: Parris Zuluaga RN Position: [facility] RN Member Role: Primary Care Nurse Care Team Related Persons Name: ZENAIDA FLORES Address: [place] [address] Name: TIA RIVERS Address: [place] [address] Name: JOHANN RETANA Address: [place] [address]
--- OUTSIDE RECORDS SUMMARY | 2023-10-14 16:49 | XMS_ITS | Continuity of Care Document ---
Author Organization [facility] Address [address] [place] [address]- Care Team Providers Care Filler Shredder Name Role Phone Azeb STARK, Caitlyn Thompson Primary Care Physician [facility]counter [facility] Date(s): 02/11/22 - 03/13/22 [facility] [address] [place] [address]- Allergies, Adverse Reactions, Alerts Substance Reaction Severity [...] Give n influenza virus vaccine, inactivated 05/07/17 Ulis rded influenza virus vaccine, inactivated 04/16/17 Give [...] day, 0 Refills, Maintenance, 11/06/21 12:44:00 EDT, [place], Partialfill upon patient request if the prescription [...] 03/08/23 13:25:00 EDT, 03/08/22 13:24:00 EDT, Solution, [facility], do not fill unless pt calls., 5 mL Topically 3 ti... Start Date: 03/08/22 Stop Date: 03/08/23 Status: Ordered meclizine 25 mg oral tablet See Instructions, PRN as needed for dizziness, can take extra 25mg for up to four per day, # 60 tablet, 4 Refills, Physician Stop, 09/30/21 13:21:00 EDT, [facility], 160, cm, 09/24/21 16:15:00 EDT, Height, 57.5, kg, 09/24/21 1:23:00 EDT... Start Date: 09/30/21 Status: Ordered omeprazole 40 mg oral enteric coated capsule 1 capsule = 40 mg, By Mouth, Daily, # 5 capsule, 0 Refills, Maintenance, 11/09/21 9:33:00 EDT, EC Capsule, [facility] [place] [facility], Partial fill upon patient request if [...] Team Personnel Name: Caitlyn Bowie MD Address: [address] [place] [address]
--- OUTSIDE RECORDS SUMMARY | 2023-10-14 16:49 | XMS_ITS | Continuity of Care Document ---
Author Organization [facility] Address [address] [place] [address]- Care Team Providers Care Front Elevator Operator Name Role Phone Caitlyn Bowie MD Primary Care Physician Encounter [facility] Date(s): 09/09/22 - 10/09/22 [facility] [address] [place], [place] [address] Allergies, Adverse Reactions, Alerts Substance [...] Care Team Personnel Name: Val Wynne Position: [facility] Onco RN Member Role: Primary Care Nurse Name: Karen Pittman RN Position: [facility] RN Member Role: Primary Care Nurse Name: Shilpi Mattson Position: Reference Physician Member Role: Primary Care Nurse Address: Address: [address] [place] [address] [address] [place] [address]- [place] Name: Toyin Doherty RN Position: [facility] RN Member Role: Primary Care Nurse Name: Eben Hernandez NP Position: [facility] Associate Professional Member Role: Lifetime Consulting Provider Address: Address: [address] [place] [address]- Name: Alejandrina Turner RN Position: [facility] RN Member Role: Primary Care Nurse Name: Zoraida Felix RN Position: [facility] RN Member Role: Primary Care Nurse Name: Daphne Hooker RN Position: [facility] RN Member Role: Primary Care Nurse Name: Nasima Gonzalez RN Position: [facility] RN Suprodney Member Role: Primary Care Nurse Name: Caitlyn Bowie MD Position: [facility] Primary Care Physician Member Role: PCP Address: Address: [address] [place] [address]- Name: Sheeba García Position: [facility] RN Member Role: Primary Care Nurse Name: Kiki Abdi RN Position: [facility] RN Member Role: Primary Care Nurse Name: Marry Reza Position: [facility] RN Member Role: Primary Care Nurse Name: Veronica Hurst [place] Position: [facility] PCO RN Member Role: Lifetime Consulting Physician Name: Maddie Herrera RN Position: [facility] RN Member Role: Primary Care Nurse Name: Raegan Baptiste RN Position: [facility] RN Member Role: Primary Care Nurse Name: Svitlana Marcum RN Position: [facility] AMB Nurse Member Role: Primary Care Nurse Name: She Pool Position: [facility] RN Member Role: Primary Care Nurse Name: Kaila [place] RN Position: [facility] RN Member Role: Primary Care Nurse Name: Julio C Bahena Position: [facility] RN Member Role: Primary Care Nurse Name: Nasima Heredia RN Position: [facility] RN Member Role: Primary Care Nurse Name: Katherine Nixon PharmD Position: [facility] Associate Professional Member Role: Lifetime Consulting Provider Address: Address: [address] [place] [address] Name: Daphne Barton RN Position: [facility] RN Member Role: Primary Care Nurse Name: Katherine Long RN Position: [facility] RN Member Role: Primary Care Nurse Name: Norma Serrano RN Position: [facility] RN Member Role: Primary Care Nurse Name: Seven Kelly RN Position: [facility] RN Member Role: Primary Care Nurse Name: Fani Perez RN Position: [facility] RN Member Role: Primary Care Nurse Name: Hattie [place] RN Position: [facility] RN Member Role: Primary Care Nurse Name: Yudith Rothman RN Position: [facility] Onco RN Member Role: Primary Care Nurse Name: Kelly Hernandez RN Position: [facility] RN Member Role: Primary Care Nurse Name: Parris Zuluaga RN Position: [facility] RN Member Role: Primary Care Nurse Care Team Related Persons Name: ZENAIDA FLORES Address: [place], [place] Name: TIA RIVERS Address: [address] [address] Name: JOHANN RETANA Address: [place], [place]
--- OUTSIDE RECORDS SUMMARY | 2023-10-14 16:49 | XMS_ITS | Continuity of Care Document ---
Author Organization [facility] ter Address [address] [place] [address]- Care Team Providers Care Automotive Customer Experience Advisor Name Role Phone Peewee STARK, Sharon Primary Care Physician Encounter [facility] Date(s): 08/21/19 - 08/21/[address] [address]- [facility] Attending Physician: Shawn [facility], Danita Rivera [...] By Mouth, Daily, Dr. primo Renee at [facility], # 30 tablet, 0 Refills, Maintenance, 01/26/18 [...]
--- OUTSIDE RECORDS SUMMARY | 2023-10-14 16:50 | XMS_ITS | Continuity of Care Document ---
Author Organization [facility] Address [address] [place] [address]- Care Team Providers Care Insulation Estimator Name Role Phone Azeb STARK, Caitlyn Thompson Primary Care Physician [phone] Encounter [facility] Date(s): 04/02/21 - 05/02/21 [facility] [address] [place] [address]- Attending Physician: Melissa Morrison Admitting Physician: Melissa [...]
--- OUTSIDE RECORDS SUMMARY | 2023-10-14 16:50 | XMS_ITS | Continuity of Care Document ---
Author Organization [facility] Address [address] [place] [address]- Care Team Providers Care Older Worker Specialist Name Role Phone Caitlyn Bowie MD Primary Care Physician Encounter [facility] Date(s): 02/18/21 - 03/20/21 [facility] [address] [place] [address]- Attending Physician: Melissa Morrison Admitting Physician: Melissa [...] 9:04:00 EDT, 03/16/21 9:04:00 EDT, REC Pow[place], [facility], Partial fill upon patient request [...] times a day, Dr. primo Renee at [facility], per pt, # 30 tablet, 0 Refills, [...]
--- OUTSIDE RECORDS SUMMARY | 2023-10-14 16:50 | XMS_ITS | Continuity of Care Document ---
Author Organization [facility] Address [address] [address]- Care Team Providers Care Foot Worker Name Role Phone Caitlyn Bowie MD Primary Care Physician [facility]counter [facility] Date(s): 03/18/21 - 04/17/21 [facility] [address] [address]- Allergies, Adverse Reactions, Alerts Substance Reaction Severity [...]
--- OUTSIDE RECORDS SUMMARY | 2023-10-14 16:50 | XMS_ITS | Continuity of Care Document ---
Author Organization [facility] Address [address] [place] [address]- Care Team Providers Care Janitorial Manager Name Role Phone Caitlyn Bowie MD Primary Care Physician [facility]22 - 07/10/22 [facility] [address] [place], [place] [address] Allergies, [...] 0 Refills, Maintenance, 05/19/22 11:45:00 EST, [id number], Partial fill upon patient request [...] Care Team Personnel Name: Val Wynne Position: [facility] Onco RN Member Role: Primary Care Nurse Name: Karen Pittman RN Position: S RN Member Role: Primary Care Nurse Name: Shilpi Mattson Position: Reference Physician Member Role: Primary Care Nurse Address: Address: [address] [place] [address] [address] [place] [address]- Name: Toyin Doherty RN Position: S RN Member Role: Primary Care Nurse Name: Eben Hernandez NP Position: [facility] Associate Professional Member Role: Lifetime Consulting Provider Address: Address: [address] [place] [address]- [place] Name: Alejandrina Turner RN Position: [facility] RN Member Role: Primary Care Nurse Name: Zoraida Felix RN Position: [facility] RN Member Role: Primary Care Nurse Name: Daphne Hooker RN Position: [facility] RN Member Role: Primary Care Nurse Name: Nasima Gonzalez RN Position: [facility] RN Supv Member Role: Primary Care Nurse Name: Caitlyn Bowie MD Position: [facility] Primary Care Physician Member Role: PCP Address: Address: [address] [place] [address]- Name: Sheeba García Position: [facility] RN Member Role: Primary Care Nurse Name: Kiki Abdi RN Position: [facility] RN Member Role: Primary Care Nurse Name: Marry Reza Position: [facility] RN Member Role: Primary Care Nurse Name: Veronica Hurst MA Position: [facility] PCO RN Member Role: Lifetime Consulting Physician Name: Maddie Herrera RN Position: [facility] RN Member Role: Primary Care Nurse Name: Raegan Baptiste RN Position: [facility] RN Member Role: Primary Care Nurse Name: Svitlana Marcum RN Position: [facility] AMB Nurse Member Role: Primary Care Nurse Name: She Pool Position: [facility] RN Member Role: Primary Care Nurse Name: Kaila Latham RN Position: [facility] RN Member Role: Primary Care Nurse Name: Julio C Bahena Position: [facility] RN Member Role: Primary Care Nurse Name: Nasima Heredia RN Position: [facility] RN Member Role: Primary Care Nurse Name: Katherine Nixon PharmD Position: [facility] Associate Professional Member Role: Lifetime Consulting Provider Address: Address: [address] [place] [address]- Name: Daphne Barton RN Position: [facility] RN Member Role: Primary Care Nurse Name: Katherine Long RN Position: [facility] RN Member Role: Primary Care Nurse Name: Norma Serrano RN Position: [facility] RN Member Role: Primary Care Nurse Name: Aurea Kelly RN Position: [facility] RN Member Role: Primary Care Nurse Name: Seven Kelly RN Position: [facility] RN Member Role: Primary Care Nurse Name: Fani Perez RN Position: [facility] RN Member Role: Primary Care Nurse Name: Emely Her Position: S RN Member Role: Primary Care Nurse Name: Yudith Rothman RN Position: S RN Member Role: Primary Care Nurse Name: Parris Zuluaga RN Position: S RN Member Role: Primary Care Nurse Care Team Related Persons Name: ZENAIDA FLORES Address: [place] [address] Name: TIA RIVERS Address: [address] [address] Name: JOHANN RETANA Address: [place] [address]
--- OUTSIDE RECORDS SUMMARY | 2023-10-14 16:50 | XMS_ITS | Continuity of Care Document ---
Author Organization [facility] Address [address] [place] [address]- Care Team Providers Care Punch Molder Name Role Phone Azeb STARK, Caitlyn Thompson Primary Care Physician [facility] Date[facility]s): 02/14/22 - 03/16/22 [facility] [address] [place] [address]- Allergies, Adverse Reactions, Alerts Substance Reaction Severity Status ciprofloxacin Active barium sulfate Active Voltaren Active Zithromax Active Flagyl Active gentamicin Active erythromycin Active penicillin 1 Active vancomycin Active ipratropium Active morphine Active sulfa drugs Active iodinated radiocontrast dyes Active Novocain Active Gastrografin Active Levaquin Avocado Active Biaxin Active Bee Stings Active Contrast [...] day, 0 Refills, Maintenance, 11/06/21 12:44:00 EDT, [place], Partialfill upon patient request if the prescription [...] 03/08/23 13:25:00 EDT, 03/08/22 13:24:00 EDT, Solution, [facility], do not fill unless pt calls., 5 mL Topically 3 ti... Start Date: 03/08/22 Stop Date: 03/08/23 Status: Ordered meclizine 25 mg oral tablet See Instructions, PRN as needed for dizziness, can take extra 25mg for up to four per day, # 60 tablet, 4 Refills, Physician Stop, 09/30/21 13:21:00 EDT, [facility], 160, cm, 09/24/21 16:15:00 EDT, Height, 57.5, kg, 09/24/21 1:23:00 EDT... Start Date: 09/30/21 Status: Ordered omeprazole 40 mg oral enteric coated capsule 1 capsule = 40 mg, By Mouth, Daily, # 5 capsule, 0 Refills, Maintenance, 11/09/21 9:33:00 EDT, EC Capsule, [facility], Partial fill upon patient [...] Team Personnel Name: Caitlyn Bowie MD Address: [address] [place] [address]
--- OUTSIDE RECORDS SUMMARY | 2023-10-14 16:50 | XMS_ITS | Continuity of Care Document ---
Author Organization [facility] Address [address] [place] [address]- Care Team Providers Care Hat Finisher Name Role Phone Caitlyn Bowie MD Primary Care Physician [facility] Date[facility]s): 12/16/22 - 01/15/23 [facility] [address] [place], [place] [address] Allergies, Adverse Reactions, Alerts Substance Reaction Severity [...] Care Team Personnel Name: Val Wynne Position: [facility] Onco RN Member Role: Primary Care Nurse Name: Karen Pittman RN Position: [facility] RN Member Role: Primary Care Nurse Name: Shilpi Mattson Position: Reference Physician Member Role: Primary Care Nurse Address: Address: [address] [place] [address]- [place] Name: Toyin Doherty RN Position: [facility] RN Member Role: Primary Care Nurse Name: Eben Hernandez NP Position: [facility] Associate Professional Member Role: Lifetime Consulting Provider Address: Address: [address] [place] [address]- [place] Name: Alejandrina Turner RN Position: [facility] RN Member Role: Primary Care Nurse Name: Zoraida Felix RN Position: [facility] RN Member Role: Primary Care Nurse Name: Daphne Hooker RN Position: [facility] RN Member Role: Primary Care Nurse Name: Nasima Gonzalez RN Position: [facility] RN Supv Member Role: Primary Care Nurse Name: Caitlyn Bowie MD Position: [facility] Physician - Primary Care Member Role: PCP Address: Address: [address] [place] [address]- [place] Name: Kiki Abdi RN Position: [facility] RN Member Role: Primary Care Nurse Name: Marry Reza Position: [facility] RN Member Role: Primary Care Nurse Name: Veronica Hurst MA Position: [facility] S[place] Member Role: Lifetime Consulting Physician Name: Maddie Herrera RN Position: [facility] AMB Nurse Member Role: Primary Care Nurse Name: Raegan Baptiste RN Position: [facility] RN Member Role: Primary Care Nurse Name: Svitlana Marcum RN Position: [facility] AMB Nurse Member Role: Primary Care Nurse Name: She Pool Position: [facility] RN Member Role: Primary Care Nurse Name: Kaila Latham RN Position: [facility] RN Member Role: Primary Care Nurse Name: Julio C Bahena Position: [facility] RN Member Role: Primary Care Nurse Name: Naisma Heredia RN Position: [facility] RN Member Role: Primary Care Nurse Name: Katherine Nixon PharmD Position: [facility] Associate Professional Member Role: Lifetime Consulting Provider Address: Address: [address] [facility] [place] [address]- [place] Name: Daphne Barton RN Position: [facility] RN Member Role: Primary Care Nurse Name: Katherine Long RN Position: [facility] RN Member Role: Primary Care Nurse Name: Norma Serrano RN Position: [facility] RN Member Role: Primary Care Nurse Name: Seven Kelly RN Position: [facility] RN Member Role: Primary Care Nurse Name: Fani Perez RN Position: [facility] RN Member Role: Primary Care Nurse Name: Hattie Brewster RN Position: [facility] RN Member Role: Primary Care Nurse Name: Yudith Rothman RN Position: [facility] Onco RN Member Role: Primary Care Nurse Name: Kelly Hernandez RN Position: [facility] RN Member Role: Primary Care Nurse Name: Parris Zuluaga RN Position: [facility] RN Member Role: Primary Care Nurse Care Team Related Persons Name: ZENAIDA FLORES Address: [place], [place] Name: TIA RIVERS Address: [place] [address] Name: JOHANN RETANA Address: [place], [place]
--- OUTSIDE RECORDS SUMMARY | 2023-10-14 16:50 | XMS_ITS | Continuity of Care Document ---
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(Discharge Diagnosis) - 07/19/21 Heterozygous Factor V Leiden mutation(Discharge Diagnosis) - 07/19/21 Occipital headache(Discharge Diagnosis) - 07/19/21 Anxiety(Discharge Diagnosis) - 07/19/21 Attending Physician: Caitlyn Bowie MD Allergies, Adverse [...] disease) from second hand smoke Discharge Diagnosis 07/19/21 Heterozygous Factor V Leiden mutation Discharge Diagnosis 07/19/21 Occipital headache Discharge Diagnosis 07/19/21 Anxiety Discharge Diagnosis 07/19/21 Vital Signs Most recent to oldest [Reference Range]: 1 Height 160 cm (07/19/21 8:52 AM) Weight 58 kg (07/19/21 8:52 AM) Oxygen Saturation [94-100 %] 98 % (07/19/21 8:52 AM) Pulse Rate [55-90 bpm] 80 bpm (07/19/21 8:52 AM) Body Mass Index [18.5-24.99] 22.66 (07/19/21 8:52 AM) Blood Pressure [90-138/55-84 mm Hg] 110/ 54mm Hg (07/19/21 8:52 AM) Temperature [96.8-100.4 DegF] 97.8 DegF (07/19/21 8:52 AM) Mode of Delivery (Oxygen) Room air (07/19/21 8:52 AM) Blood pressure sites Arm, left (07/19/21 8:52 AM) Temperature Route Temporal (07/19/21 8:52 AM) Weight Obtained Via Standing scale (07/19/21 8:52 AM) Social History Social History Type Response Smoking Status Never smoker; Tobacc o user in household: No entered on: 04/05/17 Sex
--- OUTSIDE RECORDS SUMMARY | 2023-10-14 16:50 | XMS_ITS | Continuity of Care Document ---
Author Organization [facility] Address [address] [place] [address]- Care Team Providers Care Special Education Resource Room Teacher Name Role Phone Caitlyn Bowie MD Primary Care Physician [place] [facility] [place] 07/14/22 - 09/10/22 [facility] [address] [place], [place] [address] Attending Physician: Caitlyn Bowie MD Allergies, Adverse [...] Active Hypoxia Confirmed Active Insomnia Confirmed Active Insomnia Confirmed Active LLQ pain Confirmed Active LUQ pain Confirmed Active Mitral valve prolapse Confirmed [...] Personnel Name: Val Wynne Position: [facility] Onco RN Member Role: Primary Care Nurse Name: Karen Pittman RN Position: S RN Member Role: Primary Care Nurse Name: Shilpi Mattson Position: Reference Physician Member Role: Primary Care Nurse Address: Address: [address] [place] [address] [address] [place] [address]- [place] Name: Toyin Doherty RN Position: [facility] RN Member Role: Primary Care Nurse Name: Eben Hernandez NP Position: [facility] Associate Professional Member Role: Lifetime Consulting Provider Address: Address: [address] [place] [address]- Name: Alejandrina Turner RN Position: [facility] RN Member Role: Primary Care Nurse Name: Zoraida Felix RN Position: [facility] RN Member Role: Primary Care Nurse Name: Daphne Hooker RN Position: [facility] RN Member Role: Primary Care Nurse Name: Nasima Gonzalez RN Position: [facility] RN Supv Member Role: Primary Care Nurse Name: Caitlyn Bowie MD Position: [facility] Primary Care Physician Member Role: PCP Address: Address: [address] [place] [address]- Name: Sheeba García Position: [facility] RN Member Role: Primary Care Nurse Name: Kiki Abdi RN Position: [facility] RN Member Role: Primary Care Nurse Name: Marry Reza Position: [facility] RN Member Role: Primary Care Nurse Name: Veronica Hurst [place] Position: [facility] PCO RN Member Role: Lifetime Consulting Physician Name: Maddie Herrera RN Position: [facility] RN Member Role: Primary Care Nurse Name: Raegan Baptiste RN Position: [facility] RN Member Role: Primary Care Nurse Name: Svitlana Marcum RN Position: [facility] AMB Nurse Member Role: Primary Care Nurse Name: She Pool Position: [facility] RN Member Role: Primary Care Nurse Name: Kaila Latham RN Position: [facility] RN Member Role: Primary Care Nurse Name: Julio C Bahena Position: [facility] RN Member Role: Primary Care Nurse Name: Nasima Heredia RN Position: [facility] RN Member Role: Primary Care Nurse Name: Katherine Nixon PharmD Position: [facility] Associate Professional Member Role: Lifetime Consulting Provider Address: Address: [address] [place] [id number] Name: Daphne Barton RN Position: [facility] RN Member Role: Primary Care Nurse Name: Katherine Long RN Position: [facility] RN Member Role: Primary Care Nurse Name: Norma Serrano RN Position: [facility] RN Member Role: Primary Care Nurse Name: Seven Kelly RN Position: [facility] RN Member Role: Primary Care Nurse Name: Fani Perez RN Position: [facility] RN Member Role: Primary Care Nurse Name: Hattie Brewster RN Position: [facility] RN Member Role: Primary Care Nurse Name: Yudith Rothman RN Position: [facility] Onco RN Member Role: Primary Care Nurse Name: Kelly Hernandez RN Position: [facility] RN Member Role: Primary Care Nurse Name: Parris Zuluaga RN Position: [facility] RN Member Role: Primary Care Nurse Care Team Related Persons Name: ZENAIDA FLORES Address: [place] [address] Name: TIA RIVERS Address: [address] [address] Name: JOHANN RETANA Address: [place] [address]
--- OUTSIDE RECORDS SUMMARY | 2023-10-14 16:50 | XMS_ITS | Continuity of Care Document ---
Author Organization [facility] Address [address] [place] [address]- Care Team Providers Care Activated Sludge Attendant Name Role Phone Caitlyn Bowie MD Primary Care Physician [place] [facility] Date(s): 04/21/21 - 04/28/21 [facility] [address] [place] [address]- Encounter Diagnosis CHF - Congestive heart failure(Discharge Diagnosis) - 04/21/21 Hypoxia(Discharge Diagnosis) - 04/21/21 Obstructive sleep apnea treated with BiPAP(Discharge Diagnosis) - 04/21/21 Heterozygous Factor V Leiden mutation(Discharge Diagnosis) - 04/21/21 Attending Physician: Caitlyn Bowie MD Allergies, Adverse Reactions, Alerts Substance Reaction Severity Status ciprofloxacin Active barium sulfate Active Zithromax Active Novocain Active gentamicin Active erythromycin Active penicillin 1 Active vancomycin Active ipratropium Active morphine Active sulfa drugs Active iodinated radiocontrast dyes Active Voltaren Active Flagyl Active Gastrografin Active Levaquin Avocado [...] CHF - Congestive heart failure Discharge Diagnosis 04/21/21 Hypoxia Discharge Diagnosis 04/21/21 Obstructive sleep apnea treated with BiPAP Discharge Diagnosis 04/21/21 Heterozygous Factor V Leiden mutation Discharge Diagnosis 04/21/21 Vital Signs Most recent to oldest [Reference Range]: 1 Height 134.6 cm (04/21/21 11:08 AM) Weight 59 kg (04/21/21 11:08 AM) Oxygen Saturation [94-100 %] 94 % (04/21/21 11:08 AM) Pulse Rate [55-90 bpm] 82 bpm (04/21/21 11:08 AM) Body Mass Index [18.5-24.99] 32.57 *>HHI* (04/21/21 11:08 AM) Blood Pressure [90-138/55-84 mm Hg] 106/ 52mm Hg (04/21/21 11:08 AM) Respiratory Rate [16-30 br/min] 18 br/mi n (04/21/21 11:08 AM) Temperature [96.8-100.4 DegF] 98.0 DegF (04/21/21 11:08 AM) Mode of Delivery (Oxygen) Room air (04/21/21 11:08 AM) Blood pressure sites Arm, left (04/21/21 11:08 AM) Temperature Route Temporal (04/21/21 11:08 AM) Weight Obtained Via Standing scale (04/21/21 11:08 AM) Social History Social History Type Response Smoking Status Never smoker; Tobacc o user in household: No entered on: 04/05/17 Sex
--- OUTSIDE RECORDS SUMMARY | 2023-10-14 16:51 | XMS_ITS | Continuity of Care Document ---
Author Organization [facility] Address [address] [place] [address]- Care Team Providers Care Product Development Engineer Name Role Phone Peewee STARK, Sharon Primary Care Physician [place] [facility] [place] 12/26/19 - 01/25/20 [facility] [address] [place] [address]- [facility] Attending Physician: Admcliff, Melissa Admitting Physician: Admtr, Melissa Referring Physician: Admtr, Ar8 Allergies, Adverse Reactions, [...] By Mouth, Daily, Dr. primo Renee at [place], # 30 tablet, 0 Refills, Maintenance, 01/26/18 16:36:23 EDT, ER Tablet Start Date: 01/26/18 Status: Ordered metroNIDAZOLE 500 mg oral tablet 1 tablet = 500 mg, By Mouth, Every 8 hours, may take with food to minimize abdominal discomfort, # 18 tablet, 0 Refills, Maintenance, 09/06/19 14:42:00 EST, Tablet, [facility], 160, cm,09/06/19 7:35:00 EST, Height, 60.3, [...]
--- OUTSIDE RECORDS SUMMARY | 2023-10-14 16:51 | XMS_ITS | Continuity of Care Document ---
Author Organization [facility] Address [address] [address]- Care Team Providers Care Ship Surveyor Name Role Phone Peewee STARK, Sharon Primary Care Physician Encounter [facility] Date(s): 06/17/19 - 06/17/19 [facility] [address] [address]- [facility] Discharge Disposition: A-D/C Home Attending Physician: Rosendo Humphries MD Admitting Physician: [...] By Mouth, Daily, Dr. primo Renee at [place], # 30 tablet, 0 Refills, Maintenance, 01/26/18 [...]
--- OUTSIDE RECORDS SUMMARY | 2023-10-14 16:51 | XMS_ITS | Continuity of Care Document ---
Author Organization [facility] Address [address] [place] [address]- Care Team Providers Care National Sales Manager Name Role Phone Caitlyn Bowie MD Primary Care Physician Encounter [facility] AC[facility] R [id number] Date(s): 09/26/22 - 10/03/22 [facility] [address] [place], [place] 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 Discharge Diagnosis 09/26/22 HTN (hypertension) Discharge Diagnosis 09/26/22 Anxiety Discharge Diagnosis 09/26/22 Vital Signs Most recent to oldest [Reference Range]: 1 Height 159 cm (09/26/22 11:14 AM) Weight 58.8 kg (09/26/22 11:14 AM) Oxygen Saturation [94-100 %] 96 % (09/26/22 11:14 AM) Pulse Rate [55-90 bpm] 84 bpm (09/26/22 11:14 AM) Body Mass Index [18.5-24.99 kg/m2] 23.26 kg/m2 (09/26/22 11:14 AM) Blood Pressure [90-138/55-84 mm Hg] 114/ 50mm Hg (09/26/22 11:14 AM) Temperature [96.8-100.4 DegF] 98.5 DegF (09/26/22 11:14 AM) Mode of Delivery (Oxygen) Room air (09/26/22 11:14 AM) Blood pressure sites Arm, left (09/26/22 11:14 AM) Temperature Route Temporal (09/26/22 11:14 AM) Weight Obtained Via Standing scale (09/26/22 11:14 AM) Social History Social History Type Response Smoking Status Never smoker; Tobacc o user in household: No entered on: 04/05/17 Sex Note * Kiki Kelly: PERFORM, SIGN, VERIFY Event Display: Patient Education/Instruction Authored Date: [facility] *No Edge Adult Ped Clinical Summary Name CINDA WATSON Age 77 Years 1945 PCP Caitlyn Bowei MD PCP [facility]# [id number] Visit Date 09/26/2022 10:49:00 Additional Instructions: Scheduled Appointments?? Future Appointments ?No Future Appointments Scheduled Follow-Up Instructions ?? Diagnosis Medications: Please continue [...] Inhalation twice a day. Next Dose: Furosemide 20 Milligram Daily. Next Dose: Levothyroxine (levothyroxine 25 mcg (0.025 [...] Bedtime. Dr. Kelly. Refills: 0. Next Dose: umeclidinium (Incruse Ellipta 62.5 mcg/inh inhalation powder) Next Dose: Warfarin (warfarin 1 mg oral [...] Orders ?No future orders Vital Signs Height 159 cm Weight 58.8 kg BMI 23.26 kg/m2 Blood Pressure 114 mm Hg/50 mm Hg Temperature 98.5 DegF Pulse Rate 84 bpm Respiratory Rate 02 Sat Mode of Delivery 96 %/Room air You can now view a summary of your hospital visit from the comfort of your home through a free online portal called [employer]. [employer] is a website that allows you to securely view your medical information including discharge summary, medications and follow-up visits. ??You can alsosend a secure electronic message to your doctor???s office to request appointments, renew medications or just ask a question. You can enroll at [email or web address] or register during your next office [...] primary care provider, you may find a [facility] provider by calling [facility] Link at [phone]. For information about the plan of care [...] Wynne Position: [facility] Onco RN Member Role: Primary Care Nurse Name: Karen Pittman RN Position: [facility] RN Member Role: Primary Care Nurse Name: Shilpi Mattson Position: Reference Physician Member Role: Primary Care Nurse Address: Address: [address] [place] [address] [address] [place] [address]- Name: Toyin Doherty RN Position: [facility] RN Member Role: Primary Care Nurse Name: Eben Hernandez NP Position: [facility] Associate Professional Member Role: Lifetime Consulting Provider Address: Address: [address] [place] [address]- Name: Alejandrina Turner RN Position: [facility] RN Member Role: Primary Care Nurse Name: Zoraida Felix RN Position: [facility] RN Member Role: Primary Care Nurse Name: Daphne Hooker RN Position: [facility] RN Member Role: Primary Care Nurse Name: Nasima Gonzalez RN Position: [facility] RN Suprodney Member Role: Primary Care Nurse Name: Caitlyn Bowie MD Position: [facility] Primary Care Physician Member Role: PCP Address: Address: [address] [place] [address]- Name: Sheeba García Position: [facility] RN Member Role: Primary Care Nurse Name: Kiki Abdi RN Position: [facility] RN Member Role: Primary Care Nurse Name: Marry Reza Position: [facility] RN Member Role: Primary Care Nurse Name: Veronica Hurst MA Position: [facility] PCO RN Member Role: Lifetime Consulting Physician Name: Maddie Herrera RN Position: [facility] RN Member Role: Primary Care Nurse Name: Raegan Baptiste RN Position: [facility] RN Member Role: Primary Care Nurse Name: Svitlana Marcum RN Position: [facility] AMB Nurse Member Role: Primary Care Nurse Name: She Pool Position: [facility] RN Member Role: Primary Care Nurse Name: Kaila Ltaham RN Position: [facility] RN Member Role: Primary Care Nurse Name: Julio C Bahena Position: [facility] RN Member Role: Primary Care Nurse Name: Nasima Heredia RN Position: [facility] RN Member Role: Primary Care Nurse Name: Katherine Nixon PharmD Position: [facility] Associate Professional Member Role: Lifetime Consulting Provider Address: Address: [address] [place] [address] Name: Daphne Barton RN Position: [facility] RN Member Role: Primary Care Nurse Name: Katherine Long RN Position: [facility] RN Member Role: Primary Care Nurse Name: Norma Serrano RN Position: [facility] RN Member Role: Primary Care Nurse Name: Seven Kelly RN Position: [facility] RN Member Role: Primary Care Nurse Name: Fani Perez RN Position: [facility] RN Member Role: Primary Care Nurse Name: Hattie Brewster RN Position: [facility] RN Member Role: Primary Care Nurse Name: Yudith Rothman RN Position: [facility] Onco RN Member Role: Primary Care Nurse Name: Kelly Hernandez RN Position: [facility] RN Member Role: Primary Care Nurse Name: Parris Zuluaga RN Position: [facility] RN Member Role: Primary Care Nurse Care Team Related Persons Name: ZENAIDA FLORES Address: [place], [place] Name: TIA RIVERS Address: home [address] [place] [id number] Name: JOHANN RETANA Address: [place] [address]
--- OUTSIDE RECORDS SUMMARY | 2023-10-14 16:51 | XMS_ITS | Continuity of Care Document ---
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(Discharge Diagnosis) - 11/11/22 Antiphospholipid syndrome(Discharge Diagnosis) - 11/11/22 Anxiety(Discharge Diagnosis) - 11/11/22 HTN (hypertension)(Discharge Diagnosis) - 11/11/22 Attending Physician: Caitlyn Bowie MD Allergies, Adverse Reactions, Alerts Substance Reaction Severity Status ciprofloxacin Active morphine Active barium sulfate Active sulfa drugs Active iodinated radiocontrast dyes Active Voltaren Active Zithromax Active Flagyl Active gentamicin Active erythromycin Active penicillin 1 Active vancomycin Active busPIRone Feeling of throat ti ghtness Headache Dizziness Active ipratropium Active Gastrografin Active Levaquin Avocado Active Novocain [...] CHF - Congestive heart failure Discharge Diagnosis 11/11/22 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 Discharge Diagnosis 11/11/22 Antiphospholipid syndrome Discharge Diagnosis 11/11/22 Anxiety Discharge Diagnosis 11/11/22 HTN (hypertension) Discharge Diagnosis 11/11/22 Vital Signs Most recent to oldest [Reference Range]: 1 Height 159 cm (11/11/22 11:25 AM) Weight 58.6 kg (11/11/22 11:25 AM) Oxygen Saturation [94-100 %] 96 % (11/11/22 11:25 AM) Pulse Rate [55-90 bpm] 84 bpm (11/11/22 11:25 AM) Body Mass Index [18.5-24.99 kg/m2] 23.18 kg/m2 (11/11/22 11:25 AM) Blood Pressure [90-138/55-84 mm Hg] 118/ 72mm Hg (11/11/22 11:25 AM) Mode of Delivery (Oxygen) Room air (11/11/22 11:25 AM) Blood pressure sites Arm, left (11/11/22 11:25 AM) Social History Social History Type Response Smoking Status Never smoker; Tobacc o user in household: No entered on: 04/05/17 Sex Female Note * Becky Álvarez: PERFORM, SIGN, VERIFY Event Display: Patient Education/Instruction Authored Date: [id number] [facility] *No Edge Adult Ped Clinical Summary Name CINDA WATSON Age 77 Years 1945 PCP Caitlyn Bowie MD PCP Visit Date 11/11/2022 11:13:00 Additional Instructions: Scheduled Appointments?? Future Appointments ?*[facility] ?Phone:??--?Fax:??-- ?Appt. Date:??12/21/2022?2:00 PM ?Scheduled Provider:??[facility] Room ?*[facility]??[place],??[place],??[address] ?Phone:??--?Fax:??-- ?Appt. Date:??12/29/2022?10:00 AM ?Scheduled Provider:??Rashaad STARK, Anish Anne ?*No??Edge??Adult??Ped ?[address]??[place],??[place],??[address] ?Phone:??--?Fax:??-- ?Appt. Date:??12/29/2022?11:00 AM ?Scheduled Provider:??Caitlyn Bowie MD Follow-Up Instructions ?? Diagnosis Medications: Please continue your medications until treatment is completed or stopped by your provider. Discuss any questions related to medications with your provider. New Medications [id number], [address] [place], [place] [id number], [phone] Diazepam (diazepam 5 mg oral tablet) 1/2 tab 4 times per day; as needed anxiety & sleep. Refills: 1. Next Dose: These medications were not printed or sent to your pharmacy Lidocaine Topical (Lidoderm 5% film) Topically Daily remove patches after 12 hours. Refills: 0. Next Dose: Medications to Continue [...] orders Vital Signs Height 159 cm Weight 58.6 kg BMI 23.18 kg/m2 Blood Pressure 118 mm Hg/72 mm Hg Temperature Pulse Rate 84 bpm Respiratory Rate 02 Sat Mode of Delivery 96 %/Room air You can now view a summary of your hospital visit from the comfort of your home through a free online portal called [employer]. [employer] is a website that allows you to securely view your medical information including discharge summary, medications and follow-up visits. ??You can alsosend a secure electronic message to your doctor???s office to request appointments, renew medications or just ask a question. You can enroll at [email or web address] or register during your next office [...] primary care provider, you may find a [facility] provider by calling [facility] [employer] at [phone]. For information about the plan of care [...] Member Role: Primary Care Nurse Address: Address: [address] [place] [address]- [place] Name: Toyin Doherty RN Position: [facility] RN Member Role: Primary Care Nurse Name: Eben Hernandez NP Position: [facility] Associate Professional Member Role: Lifetime Consulting Provider Address: Address: [address] [place] [address]- Name: Alejandrina Turner RN Position: [facility] RN Member Role: Primary Care Nurse Name: Zoraida Felix RN Position: [facility] RN Member Role: Primary Care Nurse Name: Daphne Hooker RN Position: [facility] RN Member Role: Primary Care Nurse Name: Nasima Gonzalez RN Position: [facility] RN Supv Member Role: Primary Care Nurse Name: Caitlyn Bowie MD Position: [facility] Primary Care Physician Member Role: PCP Address: Address: [address] [place] [address]- Name: Sheeba García Position: [facility] RN Member Role: Primary Care Nurse Name: Kiki Abdi RN Position: [facility] RN Member Role: Primary Care Nurse Name: Marry Reza Position: [facility] RN Member Role: Primary Care Nurse Name: Maddie Herrera RN Position: [facility] RN Member Role: Primary Care Nurse Name: Raegan Baptiste RN Position: [facility] RN Member Role: Primary Care Nurse Name: Svitlana Marcum RN Position: [facility] AMB Nurse Member Role: Primary Care Nurse Name: She Pool Position: [facility] RN Member Role: Primary Care Nurse Name: Kaila Latham RN Position: [facility] RN Member Role: Primary Care Nurse Name: Julio C Bahena Position: [facility] RN Member Role: Primary Care Nurse Name: Nasima Heredia RN Position: [facility] RN Member Role: Primary Care Nurse Name: Katherine Nixon PharmD Position: [facility] Associate Professional Member Role: Lifetime Consulting Provider Address: Address: [address] [place] [address]- [place] Name: Daphne Barton RN Position: [facility] RN Member Role: Primary Care Nurse Name: Katherine Long RN Position: [facility] RN Member Role: Primary Care Nurse Name: Norma Serrano RN Position: [facility] RN Member Role: Primary Care Nurse Name: Seven Kelly RN Position: [facility] RN Member Role: Primary Care Nurse Name: Fani Perez RN Position: [facility] RN Member Role: Primary Care Nurse Name: Hattie Brewster RN Position: [facility] RN Member Role: Primary Care Nurse Name: Yudith Rothman RN Position: [facility] Onco RN Member Role: Primary Care Nurse Name: Kelly Hernandez RN Position: [facility] RN Member Role: Primary Care Nurse Name: Parris Zuluaga RN Position: [facility] RN Member Role: Primary Care Nurse Care Team Related Persons Name: ZENAIDA FLORES Address: [place] [address] Name: TIA RIVERS Address: [place] [address] Name: JOHANN RETANA Address: [place] [address]
--- OUTSIDE RECORDS SUMMARY | 2023-10-14 16:51 | XMS_ITS | Continuity of Care Document ---
Author Organization [facility] ter Address [address] [place] [address]- Care Team Providers Care Aviation Boatswain'S Mate Name Role Phone Caitlyn Bowie MD Primary Care Physician Encounter [facility] Date(s): 04/07/22 - 05/11/[address] [address]- Attending Physician: Rabia STARK, Ashequl Admitting Physician: [...] days of antibiotics, as prescribed by your primary health care nurse, 0 Refills, Maintenance, 04/14/22 10:18:00 EDT, Tablet, [...] congetsiton, 0 Refills, Maintenance, 11/06/21 12:44:00 EDT, [place], Partial fill upon patient request if the [...] EDT, 03/08/22 13:24:00 EDT, Solution, [facility], do not fill unless pt [...] Refills, Maintenance, 11/09/21 9:33:00 EDT, EC Capsule, [facility], Partial fill upon patient request [...] a schedule II opioid drug. Start Date: 3/18/22 Status: Ordered trazodone 50 mg oral tablet [...] Personnel Name: Caitlyn Bowie MD Address: Address: [address] [place] [address]
--- OUTSIDE RECORDS SUMMARY | 2023-10-14 16:51 | XMS_ITS | Continuity of Care Document ---
Author Organization [facility] Address [address] [place] [address]- Care Team Providers Care Hydraulic Rockbreaker Operator Name Role Phone Caitlyn Bowie MD Primary Care Physician Encounter [facility] Date(s): 07/23/21 - 08/22/21 [facility] [address] [place] [address]- [place] Allergies, Adverse Reactions, Alerts Substance Reaction [...]
--- OUTSIDE RECORDS SUMMARY | 2023-10-14 16:51 | XMS_ITS | Continuity of Care Document ---
Author Organization [facility] Address [address] [place] [address]- Care Team Providers Care Cast Shell Grinder Name Role Phone Caitlyn Bowie MD Primary Care Physician Encounter [facility] Date(s): 05/31/21 - 06/30/21 [facility] [address] [place], [place] [address] Allergies, Adverse Reactions, Alerts [...] EDT, Route to Pharmacy Electronically, [facility], Partial fill upon patient request [...] Start Date: 01/26/18 Status: Ordered nystatin topical [id number] u/gm powder 1 application, Topically, 3 times [...]
--- OUTSIDE RECORDS SUMMARY | 2023-10-14 16:51 | XMS_ITS | Continuity of Care Document ---
Author Organization [facility] Address [address] [place] [address]- Care Team Providers Care Geriatric Personal Care Aide Name Role Phone Caitlyn Bowie MD Primary Care Physician [phone] Encounter [facility] Date(s): 08/18/23 - 09/17/23 [facility] [address] [place], [place] [address] Allergies, Adverse Reactions, Alerts Substance Reaction Severity Status ciprofloxacin Active busPIRone Feeling of throat ti ghtness Headache Dizziness Active morphine Active barium sulfate Active gentamicin Active clindamycin throat tightening Active erythromycin Active penicillin 1 Active vancomycin Active ipratropium Active Biaxin Active sulfa drugs Active iodinated radiocontrast dyes Active Voltaren Active Zithromax Active Flagyl Active Novocain Active Gastrografin Active Avelox Active Bee Stings Active Contrast Dye Active Mold Active Avocado Active Levaquin Avocado Active Shrimp Active 1Allergy testing doen [...] Care Nurse Address: Address: [address] [place] [address]- [place] Name: Toyin Doherty RN Position: [facility] RN Member Role: Primary Care Nurse Name: Eben Hernandez NP Position: [facility] Associate Professional Member Role: Lifetime Consulting Provider Address: Address: [address] [place] [address]- [place] Name: Alejandrina Turner RN Position: [facility] RN Member Role: Primary Care Nurse Name: Zoraida Felix RN Position: [facility] ED RN W/OE and Tasks Member Role: Primary Care Nurse Name: Jaye Harley Position: [facility] [place] Airport Shuttle Driver Member Role: Ditch Repairer Name: Daphne Hooker RN Position: [facility] RN Member Role: Primary Care Nurse Name: Caitlyn Bowie MD Position: [facility] Physician - Primary Care Member Role: PCP Address: Address: [address] [place] [address]- [place] Name: Kiki Abdi RN Position: [facility] RN Member Role: Primary Care Nurse Name: Marry Reza Position: [facility] RN Member Role: Primary Care Nurse Name: Veronica Hurst [place] Position: [facility] SALLY [place] Member Role: Lifetime Consulting Physician Name: Maddie Herrera RN Position: [facility] AMB Nurse Member Role: Primary Care Nurse Name: Yudith Herrera RN Position: [facility] Onco RN Member Role: Primary Care Nurse Name: Raegan Baptiste RN Position: [facility] RN Member Role: Primary Care Nurse Name: She Pool Position: [facility] RN Member Role: Primary Care Nurse Name: Kaila Latham RN Position: [facility] RN Member Role: Primary Care Nurse Name: Julio C Bahena Position: [facility] RN Member Role: Primary Care Nurse Name: Nasima Heredia RN Position: [facility] RN Member Role: Primary Care Nurse Name: Katherine Nixon PharmD Position: [facility] Associate Professional Member Role: Lifetime Consulting Provider Address: Address: [address] [place] [address]- [place] Name: Daphne Barton RN Position: [facility] RN Member Role: Primary Care Nurse Name: Katherine Long RN Position: [facility] RN Member Role: Primary Care Nurse Name: Norma Serrano RN Position: [facility] RN Member Role: Primary Care Nurse Name: Seven Kelly RN Position: [facility] ED RN W/OE and Tasks Member Role: Primary Care Nurse Name: Fani Perez RN Position: [facility] RN Member Role: Primary Care Nurse Name: Hattie Brewster RN Position: [facility] RN Member Role: Primary Care Nurse Name: Kelly Hernandez RN Position: [facility] RN Member Role: Primary Care Nurse Name: Pallavi Wylie LPN Position: [facility] RN Member Role: Primary Care Nurse Name: Parris Zuluaga RN Position: [facility] RN Member Role: Primary Care Nurse Care Team Related Persons Name: ZENAIDA FLORES Address: [place] [address] Name: TIA RIVERS Address: [place] [address] Name: JOHANN RETANA Address: [place] [address]
--- OUTSIDE RECORDS SUMMARY | 2023-10-14 16:51 | XMS_ITS | Continuity of Care Document ---
Author Organization [facility] ter Address [address] [place] [address]- Care Team Providers Care Hardboard Press Operator Name Role Phone Brennan Burnett MD Primary Care Physician Encounter [facility] [place] Date(s): 09/15/20 - 09/18/[address] [address]- Encounter Diagnosis Dyspnea(Final) - 09/15/20 Pleural effusion, left(Final) - 09/15/20 Elevated d-dimer(Final) - 09/15/20 Pericardial effusion(Final) - 09/15/20 Leg edema(Discharge Diagnosis) - 09/15/20 Discharge Disposition: A-D/C Home Attending Physician: Daylin STARK, Kalyani Payne Admitting Physician: Gera Hebert MD Referring Physician: Not on Staff, Referring [...] By Mouth, Daily, Dr. primo Renee at [place], # 30 tablet, 0 Refills, Maintenance, 01/26/18 [...] Stop Date: 05/16/18 Status: Ordered Toprol XL 50 mg oral tablet, extended release 50 mg, XL Tablet, By Mouth, 09/18/20 9:00:00 EST Start Date: 09/18/20 Stop Date: 09/18/20 Status: Completed trazodone 50 mg oral tablet [...] Dates Health Status Clini radha Service Informant Leg edema Discharge Diagnosis 09/15/20 Results Radiology Reports * Exam Date Time Procedure Performing Provider Status 09/15/20 9:50 PM Chest 2 Views Frontal and Lat Wandy Leo; Auth (Verified) Notes: (Chest 2 Views Frontal and Lat) Reason For Exam: Shortness of Breath RESULT: Chest 2 Views Frontal and Lat Chest 2 Views Frontal and Lat Hx of Present Illness: : SOB, CP, feet and legs are swollen hx of PE and had echo done last wk and shows ? pericardial effusion; Reason: Shortness of Breath; Clinical Question(s): CHF COMPARISON: 01/26/2020 FINDINGS: LINES AND TUBES: None. LUNGS AND PLEURA: Right lung is clear. Chronic left pleural effusion/pleural thickening with linear scarring in the left midlung and left lower lung. No pneumothorax. HEART, MEDIASTINUM AND PAULIE: Heart is normal in size. Normal upper mediastinal and hilar contour. BONES AND SOFT TISSUES: No acute abnormality. IMPRESSION: No acute abnormality. WSN: [id number] Ordering Physician: Cameron Ordonez Dictated By: Franklin Vazquez DO Dictated Date/Time: 09/15/20 9:55 pm Reviewed By: Franklin Vazquez DO Signed By: Franklin Vazquez DO Signed Date/Time: 09/15/20 9:55 pm Transcribed By: MART Transcribed Date/Time: 09/15/20 9:54 pm Vital Signs Most recent to oldest [Reference Range]: 1 2 3 Weight 59.5 kg (09/17/20 3:13 AM) 60.1 kg (09/16/20 5:22 AM) 60.1 kg (09/16/20 4:12 AM) Oxygen Saturation [94-100 %] 97 % (09/18/20 7:34 AM) 95 % (09/18/20 4:14 AM) 97 % (09/18/20 12:02 AM) Pulse Rate [55-90 bpm] 84 bpm (09/18/20 8:39 AM) 84 bpm (09/18/20 7:34 AM) 78 bpm (09/18/20 4:14 AM) Blood Pressure [90-138/55-84 mm Hg] 118/53mm Hg (09/18/20 8:39 AM) 118/53mm Hg (09/18/20 7:34 AM) 104/48mm Hg (09/18/20 4:14 AM) Respiratory Rate [16-30 br/min] 18 br/min (09/18/20 7:34 AM) 18 br/min (09/18/20 4:14 AM) 18 br/min (09/18/20 12:02 AM) Temperature [96.8-100.4 DegF] 98.2 DegF (09/18/20 7:34 AM) 98.3 DegF (09/18/20 4:14 AM) 98.6 DegF (09/18/20 12:02 AM) Mode of Delivery (Oxygen) Room air (09/18/20 7:34 AM) Room air (09/18/20 4:14 AM) Room air (09/18/20 12:02 AM) Blood pressure sites Arm, left (09/18/20 7:34 AM) Arm, right (09/18/20 12:02 AM) Arm, right (09/17/20 7:01 PM) Temperature Route Oral (09/18/20 7:34 AM) Oral (09/18/20 4:14 AM) Oral (09/18/20 12:02 AM) Dry Weight 60.9 kg (09/16/20 4:12 AM) Weight Obtained Via Bed scale (09/17/20 3:13 AM) Bed scale (09/16/20 5:22 AM) Bed scale (09/16/20 4:12 AM) Social History Social History Type Response Smoking Status Never smoker; Tobacc o user in household: No entered on: 04/05/17 Sex
--- OUTSIDE RECORDS SUMMARY | 2023-10-14 16:52 | XMS_ITS | Continuity of Care Document ---
Author Organization [facility] Address [address] [place] [address]- Care Team Providers Care Dinkey Skinner Name Role Phone Caitlyn Bowie MD Primary Care Physician [place] [facility] [place](s): 04/12/22 - 05/12/22 [facility] [address] [place] [address]- [place] Allergies, Adverse Reactions, Alerts Substance Reaction [...] days of antibiotics, as prescribed by your corporate coordinator, 0 Refills, Maintenance, 04/14/22 10:18:00 EDT, Tablet, [...] congetsiton, 0 Refills, Maintenance, 11/06/21 12:44:00 EDT, [place], Partial fill upon patient request if the [...] Refills, Maintenance, 11/09/21 9:33:00 EDT, EC Capsule, [facility], Partial fill upon patient [...] Personnel Name: Caitlyn Bowie MD Address: Address: [address] [place] [address]
--- OUTSIDE RECORDS SUMMARY | 2023-10-14 16:52 | XMS_ITS | Continuity of Care Document ---
Author Organization [facility] ter Address [address] [place] [address]- Care Team Providers Care Imaging Tech Name Role Phone Caitlyn Bowie MD Primary Care Physician Encounter [facility] [place] Date(s): 10/18/22 - 01/12/[address] [address] Encounter Diagnosis Nonrheumatic mitral valve disorder, unspecified(Final) [...] entered on: 04/05/17 Sex Female Note * Joe Seals: PERFORM, SIGN, VERIFY Event Display: Cardiac Rehab Note Authored Date: Patient: CINDA WATSON Age: 77 years Sex: Female : 1945 Associated Diagnoses: None Author: Joe Seals Patient called today and stated she will not be returning to cardiac rehab. She states she has beenseen by doctor and reports her pain is due to a back fracture. We will d/c her from our program at this point. * Event Display: Cardiac Rehab Telemetry Report [...] Member Role: Primary Care Nurse Address: Address: [address] [place] [address]- [place] Name: Toyin Doherty RN Position: S RN Member Role: Primary Care Nurse Name: Eben Hernandez NP Position: [facility] Associate Professional Member Role: Lifetime Consulting Provider Address: Address: [address] [place] [address]- [place] Name: Alejandrina Turner RN Position: [facility] RN Member Role: Primary Care Nurse Name: Zoraida Felix RN Position: [facility] RN Member Role: Primary Care Nurse Name: Daphne Hooker RN Position: S RN Member Role: Primary Care Nurse Name: Nasima Gonzalez RN Position: [facility] RN Loyda Member Role: Primary Care Nurse Name: Caitlyn Bowie MD Position: [facility] Physician - Primary Care Member Role: PCP Address: Address: [address] [place] [address]- [place] Name: Kiki Abdi RN Position: S RN Member Role: Primary Care Nurse Name: Marry Reza Position: [facility] RN Member Role: Primary Care Nurse Name: Veronica Hurst MA Position: [facility] AMB [place] Member Role: Lifetime Consulting Physician Name: Maddie Herrera RN Position: [facility] AMB Nurse Member Role: Primary Care Nurse Name: Raegan Baptiste RN Position: [facility] RN Member Role: Primary Care Nurse Name: Svitlana Marcum RN Position: [facility] AMB Nurse [...] Care Nurse Name: Katherine Nixon PharmD Position: [facility] Associate Professional Member Role: Lifetime Consulting Provider Address: Address: [address] [place] [address] Name: Daphne Barton RN Position: [facility] [...] Team Related Persons Name: ZENAIDA FLORES Address: [place], [place] Name: TIA RIVERS Address: [place] [address] Name: JOHANN RETANA Address: [place], [place]
--- OUTSIDE RECORDS SUMMARY | 2023-10-14 16:52 | XMS_ITS | Continuity of Care Document ---
Author Organization [facility] Address [address] [place] [address]- Care Team Providers Care Paper Folder Name Role Phone Caitlyn Bowie MD Primary Care Physician Encounter [facility] [place] Date(s): 08/31/22 - 09/30/22 [facility] [address] [place], [place] [address] Allergies, Adverse Reactions, Alerts [...] Team Personnel Name: Val Wynne Position: [facility] Onco RN Member Role: Primary Care Nurse Name: Karen Pittman RN Position: [facility] RN Member Role: Primary Care Nurse Name: Shilpi Mattson Position: Reference Physician Member Role: Primary Care Nurse Address: Address: [address] [place] [address] [address] [place] [address]- [place] Name: Toyin Doherty RN Position: [facility] RN Member Role: Primary Care Nurse Name: Eben Hernandez NP Position: [facility] Associate Professional Member Role: Lifetime Consulting Provider Address: Address: [address] [place] [address]- Name: Alejandrina Turner RN Position: [facility] RN Member Role: Primary Care Nurse Name: Zoraida Felix RN Position: [facility] RN Member Role: Primary Care Nurse Name: Daphne Hooker RN Position: [facility] RN Member Role: Primary Care Nurse Name: Nasima Gonzalez RN Position: [facility] RN Suprodney Member Role: Primary Care Nurse Name: Caitlyn Bowie MD Position: [facility] Primary Care Physician Member Role: PCP Address: Address: [address] [place] [address]- Name: Sheeba García Position: [facility] RN Member Role: Primary Care Nurse Name: Kiki Abdi RN Position: [facility] RN Member Role: Primary Care Nurse Name: Marry Reza Position: [facility] RN Member Role: Primary Care Nurse Name: Veronica Hurst [place] Position: [facility] PCO RN Member Role: Lifetime Consulting Physician Name: Maddie Herrera RN Position: [facility] RN Member Role: Primary Care Nurse Name: Raegan Baptiste RN Position: [facility] RN Member Role: Primary Care Nurse Name: Svitlana Marcum RN Position: [facility] AMB Nurse Member Role: Primary Care Nurse Name: She Pool Position: [facility] RN Member Role: Primary Care Nurse Name: Kaila Latham RN Position: [facility] RN Member Role: Primary Care Nurse Name: Julio C Bahena Position: [facility] RN Member Role: Primary Care Nurse Name: Nasima Heredia RN Position: [facility] RN Member Role: Primary Care Nurse Name: Katherine Nixon PharmD Position: [facility] Associate Professional Member Role: Lifetime Consulting Provider Address: Address: [address] [place] [address] Name: Daphne Barton RN Position: [facility] RN Member Role: Primary Care Nurse Name: Katherine Long RN Position: [facility] RN Member Role: Primary Care Nurse Name: Norma Serrano RN Position: [facility] RN Member Role: Primary Care Nurse Name: Seven Kelly RN Position: [facility] RN Member Role: Primary Care Nurse Name: Fani Perez RN Position: [facility] RN Member Role: Primary Care Nurse Name: Hattie Brewster RN Position: [facility] RN Member Role: Primary Care Nurse Name: Yudith Rothman RN Position: [facility] Onco RN Member Role: Primary Care Nurse Name: Kelly Hernandez RN Position: [facility] RN Member Role: Primary Care Nurse Name: Parris Zuluaga RN Position: [facility] RN Member Role: Primary Care Nurse Care Team Related Persons Name: ZENAIDA FLORES Address: [place], [place] Name: TIA RIVERS Address: [address] [address] Name: JOHANN RETANA Address: [place], [place]
--- OUTSIDE RECORDS SUMMARY | 2023-10-14 16:52 | XMS_ITS | Continuity of Care Document ---
Author Organization [facility] Address [address] [place] [address]- Care Team Providers Care Diagnostic Technician Name Role Phone Caitlyn Bowie MD Primary Care Physician [phone] Encounter [facility] [place] Date(s): 02/16/23 - 02/23/23 [facility] [address] [place], [place] [address] Attending Physician: Anish Neil MD Admitting Physician: Anish Neil MD Referring Physician: Caitlyn Bowie MD Allergies, Adverse Reactions, Alerts Substance Reaction Severity Status ciprofloxacin Active penicillin 1 Active busPIRone Feeling of throat ti ghtness Headache Dizziness Active ipratropium Active barium sulfate Active sulfa drugs Active gentamicin Active erythromycin Active vancomycin Active morphine Active Gastrografin Active Levaquin Avocado [...] entered on: 04/05/17 Sex Female Note * Osito Abdi: PERFORM, SIGN, VERIFY Event Display: Patient Education/Instruction Authored Date: [id number] [facility] *[facility] [address] Clinical Summary Name CINDA WATSON Age 77 Years 1945 PCP Caitlyn Bowie MD PCP Visit Date 02/16/2023 06:34:00 Additional Instructions: Scheduled Appointments?? Future Appointments ?*[facility] [address]??[place],??[place],??[address] ?Phone:??--?Fax:??-- ?Appt. Date:??03/24/2023?10:25 AM ?Scheduled Provider:??Rabia STARK, Leno ?*[facility] ?[address]??[place],??[place],??[address] ?Phone:??--?Fax:??-- ?Appt. Date:??04/06/2023?11:00 AM ?Scheduled Provider:??Caitlyn Bowie MD Follow-Up Instructions ?? With: Address: When: Rashaad STARK, Anish Anne , only if needed Diagnosis Medications: Please continue your medications until [...] Oral Daily. Monday & Monday's. Next Dose: Lidocaine Topical (Lidoderm 5% film) Topically Daily. Next Dose: magnesium sulfate topical (Theraworx Relief MCS topical foam) USE ON BACK. Refills: 0. Next Dose: Metoprolol (Metoprolol Succinate ER 25 [...] Orders ?No future orders Vital Signs Height Weight BMI Blood Pressure / Temperature Pulse Rate Respiratory Rate 02 Sat Mode of Delivery / You can now view a summary of your hospital visit from the comfort of your home through a free online portal called [employer]. [employer] is a website that allows you to securely view your medical information including discharge summary, medications and follow-up visits. ??You can alsosend a secure electronic message to your doctor???s office to request appointments, renew medications or just ask a question. You can enroll at [email or web address] or register during your next office [...] primary care provider, you may find a [facility] provider by calling [facility] [place] at [phone]. For information about the plan of care [...] Role: Primary Care Nurse Address: Address: [address] [place] [address]- Name: Toyin Doherty RN Position: S RN Member Role: Primary Care Nurse Name: Eben Hernandez NP Position: [facility] Associate Professional Member Role: Lifetime Consulting Provider Address: Address: [address] [place] [address]- Name: Alejandrina Turner RN Position: S RN Member Role: Primary Care Nurse Name: Zoraida Felix RN Position: S RN Member Role: Primary Care Nurse Name: Daphne Hooker RN Position: [facility] RN Member Role: Primary Care Nurse Name: Nasima Gonzalez RN Position: [facility] RN Supv Member Role: Primary Care Nurse Name: Caitlyn Bowie MD Position: [facility] Physician - Primary Care Member Role: PCP Address: Address: [address] [place] [address]- Name: Kiki Abdi RN Position: [facility] RN Member Role: Primary Care Nurse Name: Marry Reza Position: [facility] RN Member Role: Primary Care Nurse Name: Veronica Hurst [place] Position: [facility] AMB [place] Member Role: Lifetime Consulting Physician [...] Kaila Latham RN Position: [facility] RN Member Role: Primary Care Nurse Name: Julio C Bahena Position: [facility] RN Member Role: Primary Care Nurse Name: Nasima Heredia RN Position: [facility] RN Member Role: Primary Care Nurse Name: Katherine Nixon PharmD Position: [facility] Associate Professional Member Role: Lifetime Consulting Provider Address: Address: [address] [place] [address]- Name: Daphne Barton RN Position: [facility] RN Member Role: Primary Care Nurse Name: Katherine Long RN Position: [facility] RN Member Role: Primary Care Nurse Name: Norma Serrano RN Position: [facility] RN Member Role: Primary Care Nurse Name: Seven Kelly RN Position: [facility] RN Member Role: Primary Care Nurse Name: Fani Perze RN Position: [facility] RN Member Role: Primary Care Nurse Name: Hattie Brewster RN Position: [facility] RN Member Role: Primary Care Nurse Name: Yudith Rothman RN Position: [facility] Criss RN Member Role: Primary Care Nurse Name: Kelly Hernandez RN Position: [facility] RN Member Role: Primary Care Nurse Name: Parris Zuluaga RN Position: [facility] RN Member Role: Primary Care Nurse Care Team Related Persons Name: ZENAIDA FLORES Address: [place] [address] Name: TIA RIVERS Address: [place] [address] Name: JOHANN RETANA Address: [place] [address]
--- OUTSIDE RECORDS SUMMARY | 2023-10-14 16:52 | XMS_ITS | Continuity of Care Document ---
Author Organization [facility] Address [address] [place] [address]- Care Team Providers Care Agriculture Extension Specialist Name Role Phone Caitlyn Bowie MD Primary Care Physician Encounter 03/03/21 - 06/15/21 [facility] [address] [place] [address]- Discharge Disposition: CLIENT NO LONGER REQUIRES SKILLED CARE Allergies, Adverse Reactions, Alerts Substance Reaction Severity [...] Start Date: 01/26/18 Status: Ordered nystatin topical [id number] u/gm powder 1 application, Topically, 3 times [...]
--- OUTSIDE RECORDS SUMMARY | 2023-10-14 16:52 | XMS_ITS | Continuity of Care Document ---
Author Organization [facility] Address [address] [place] [address]- Care Team Providers Care Barn Manager Name Role Phone Caitlyn Bowie MD Primary Care Physician [place] [facility] [place]07[place]22 - 04/14/22 [facility] [address] [place], [place] [address] Encounter Diagnosis Rib pain on left side(Discharge Diagnosis) - 04/07/22 Right leg pain(Discharge Diagnosis) - 04/07/22 Shortness of breath(Discharge Diagnosis) - 04/07/22 Attending Physician: Kay FLOW MANAGER, Rachel Allergies, Adverse Reactions, Alerts Substance Reaction [...] days of antibiotics, as prescribed by your immigration patrol inspector, 0 Refills, Maintenance, 04/14/22 10:18:00 EDT, [place], Partial fill upon patient request if the prescription is for a schedu... Start Date: 04/14/22 Stop Date: 04/28/22 Status: Ordered cetirizine 10 mg oral tablet [...] congetsiton, 0 Refills, Maintenance, 11/06/21 12:44:00 EDT, [place], Partial fill upon patient request if the [...] Refills, Maintenance, 11/09/21 9:33:00 EDT, EC Capsule, [facility], Partial fill upon patient [...] follow up with Coumadin clinic for dosea djemma ic, 0 Refills, Maintenance, 09/24/21 11:37:00 EDT, Partial fill u... Start Date: 09/24/21 Status: Ordered Zinc = [...] Dates Health Status Cl inical Service Informant Rib pain on left side Discharge Diagnosis 04/07/22 Right leg pain Discharge Diagnosis 04/07/22 Shortness of breath Discharge Diagnosis 04/07/22 Vital Signs Most recent to oldest [Reference Range]: 1 Height 160 cm (04/07/22 3:57 PM) Weight 59.5 kg (04/07/22 3:57 PM) Oxygen Saturation [94-100 %] 99 % (04/07/22 3:57 PM) Pulse Rate [55-90 bpm] 76 bpm (04/07/22 3:57 PM) Body Mass Index [18.5-24.99 kg/m2] 23.24 kg/m2 (04/07/22 3:57 PM) Blood Pressure [90-138/55-84 mm Hg] 127/ 75mm Hg (04/07/22 3:57 PM) Mode of Delivery (Oxygen) Room air (04/07/22 3:57 PM) Blood pressure sites Arm, left (04/07/22 3:57 PM) Weight Obtained Via Standing scale (04/07/22 3:57 PM) Social History Social History Type Response Smoking Status Never smoker; Tobacc o user in household: No entered on: 04/05/17 Sex Female Patient Care team information Personnel Name: Caitlyn Bowie MD Address: Address: [address] [place] [address]
--- OUTSIDE RECORDS SUMMARY | 2023-10-14 16:53 | XMS_ITS | Continuity of Care Document ---
Author Organization [facility] Address [address] [place] [address]- Care Team Providers Care Aquarist Name Role Phone Brennan Burnett MD Primary Care Physician [phone] [place] [facility] [place](s): 09/23/20 - 10/23/20 [facility] [address] [place] [address] Allergies, Adverse Reactions, Alerts Substance [...] By Mouth, Daily, Dr. primo Renee at [place], # 30 tablet, 0 Refills, Maintenance, 01/26/18 [...]
--- OUTSIDE RECORDS SUMMARY | 2023-10-14 16:53 | XMS_ITS | Continuity of Care Document ---
Author Organization [facility] Address [address] [place] [address]- Care Team Providers Care Canteen Attendant Name Role Phone Azeb STARK, Caitlyn Thompson Primary Care Physician Encounter [facility] Date(s): 12/20/21 - 01/19/22 [facility] [address] [place] [address]- Allergies, Adverse Reactions, Alerts Substance Reaction Severity [...] day, 0 Refills, Maintenance, 11/06/21 12:44:00 EDT, [place], Partialfill upon patient request if the prescription [...] Refills, Maintenance, 11/09/21 9:33:00 EDT, EC Capsule, [facility], Partial fill upon patient request [...]
--- OUTSIDE RECORDS SUMMARY | 2023-10-14 16:53 | XMS_ITS | Continuity of Care Document ---
Author Organization [facility] Address [address] [place] [address]- Care Team Providers Care Scrap Hoist Operator Name Role Phone Caitlyn Bowie MD Primary Care Physician [phone] Encounter [facility] Date(s): 10/06/21 - 10/13/21 [facility] [address] [place] [address]- Encounter Diagnosis Lymph nodes enlarged(Discharge Diagnosis) - 10/06/21 Attending Physician: Not on Staff, Attending MD Allergies, Adverse Reactions, Alerts Substance Reaction Severity Status ciprofloxacin Active erythromycin Active ipratropium Active barium sulfate Active Zithromax Active Flagyl Active gentamicin Active penicillin 1 Active vancomycin Active busPIRone Feeling of throat ti ghtness Headache Dizziness Active morphine Active sulfa drugs Active iodinated radiocontrast dyes Active Voltaren Active Gastrografin Active Levaquin Avocado Active Novocain Active Biaxin Active Bee Stings Active Contrast Dye Active Mold Active Avocado Active Avelox Active Shrimp Active 1Allergy [...] Dates Health Status Cl inical Service Informant Lymph nodes enlarged Discharge Diagnosis 10/06/21 Social History Social History Type Response Smoking Status Never smoker; Tobacc o user in household: No entered on: 04/05/17 Sex
--- OUTSIDE RECORDS SUMMARY | 2023-10-14 16:53 | XMS_ITS | Continuity of Care Document ---
Author Organization [facility] Address [address] [place] [address]- Care Team Providers Care Metallographer Name Role Phone Caitlyn Bowie MD Primary Care Physician [phone] [facility]counter [facility] Date[facility]s): 07/31/23 - 08/30/23 [facility] [address] [place], [place] [address] Allergies, Adverse Reactions, Alerts Substance [...] Care Team Personnel Name: Val Wynne Position: [facility] Onco RN Member Role: Primary Care Nurse Name: Karen Pittman RN Position: S RN Member Role: Primary Care Nurse Name: Shilpi Mattson Position: Reference Physician Member Role: Primary Care Nurse Address: Address: [address] [place] [address]- Name: Toyin Doherty RN Position: S RN Member Role: Primary Care Nurse Name: Eben Hernandez NP Position: [facility] Associate Professional Member Role: Lifetime Consulting Provider Address: Address: [address] [place] [address]- Name: Alejandrina Turner RN Position: S RN Member Role: Primary Care Nurse Name: Zoraida Felix RN Position: [facility] ED RN W/OE and Tasks Member Role: Primary Care Nurse Name: Jaye Harley Position: [facility] MA Water Valve Mechanic Member Role: Nurse Navigator Name: Daphne Hooker RN Position: [facility] RN Member Role: Primary Care Nurse Name: Nasima Gonzalez RN Position: [facility] RN Supv Member Role: Primary Care Nurse Name: Caitlyn Bowie MD Position: [facility] Physician - Primary Care Member Role: PCP Address: Address: [address] [place] [address] - Name: Kiki Abdi RN Position: [facility] RN Member Role: Primary Care Nurse Name: Marry eRza Position: [facility] RN Member Role: Primary Care Nurse Name: Veronica Hurst MA Position: [facility] SALLY MA Member Role: Lifetime Consulting Physician Name: Maddie Herrera RN Position: [facility] AMB Nurse Member Role: Primary Care Nurse Name: Yudith Herrera RN Position: [facility] Onco RN Member Role: Primary Care Nurse Name: Raegan Baptiste RN Position: [facility] RN Member Role: Primary Care Nurse Name: She Pool Position: [facility] RN Member Role: Primary Care Nurse Name: Kaila Latham RN Position: [facility] RN Member Role: Primary Care Nurse Name: Julio C Bahena Position: [facility] RN Member Role: Primary Care Nurse Name: Nasima Heredia RN Position: [facility] RN Member Role: Primary Care Nurse Name: Katherine Nixon PharmD Position: [facility] Associate Professional Member Role: Lifetime Consulting Provider Address: Address: [address] [place] [address] - Name: Daphne Barton RN Position: [facility] RN Member Role: Primary Care Nurse Name: Katherine Long RN Position: [facility] RN Member Role: Primary Care Nurse Name: Norma Serrano RN Position: [facility] RN Member Role: Primary Care Nurse Name: Seven Kelly RN Position: [facility] ED RN W/OE and Tasks Member Role: Primary Care Nurse Name: Fani Perez RN Position: [facility] RN Member Role: Primary Care Nurse Name: Hattie Brewster RN Position: [facility] RN Member Role: Primary Care Nurse Name: Kelly Hernandez RN Position: [facility] RN Member Role: Primary Care Nurse Name: Pallavi Wylie LPN Position: S RN Member Role: Primary Care Nurse Name: Parris Zuluaga RN Position: S RN Member Role: Primary Care Nurse Care Team Related Persons Name: ZENAIDA FLORES Address: [place] [address] Name: TIA RIVERS Address: [place] [address] Name: JOHANN RETANA Address: [place] [address]
--- OUTSIDE RECORDS SUMMARY | 2023-10-14 16:53 | XMS_ITS | Continuity of Care Document ---
Author Organization [facility] Address [address] [place] [address]- Care Team Providers Care Integration Software Developer Name Role Phone Caitlyn Bowie MD Primary Care Physician [facility] Date(s): 03/24/21 - 04/23/21 [facility] [address] [id number] Allergies, Adverse Reactions, Alerts Substance [...] 16:14:00 EDT,Route to Pharmacy Electronically, [id number], Partial fill upon patient request [...]
--- OUTSIDE RECORDS SUMMARY | 2023-10-14 16:53 | XMS_ITS | Continuity of Care Document ---
Author Organization [facility] Address [address] [place] [address]- Care Team Providers Care Route Agent Name Role Phone Caitlyn Bowie MD Primary Care Physician [phone] [facility] Date(s): 08/02/21 - 08/09/21 [facility] [address] [place], [place] [address] Attending Physician: Ally Correa MD Referring Physician: [...] vaccine, inactivated 04/16/17 Give n SARS-CoV-2 (COVID-19) mRNA-1277 vaccine 08/06/20 R ecorded Influenza Virus Vaccine [...]
--- OUTSIDE RECORDS SUMMARY | 2023-10-14 16:53 | XMS_ITS | Continuity of Care Document ---
Author Organization [facility] Address [address] [place] [address]- Care Team Providers Care Landscape Account Manager Name Role Phone Caitlyn Bowie MD Primary Care Physician Encounter [facility] Date(s): 08/26/22 - 09/02/22 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(Discharge Diagnosis) - 08/26/22 MIS (generalized anxiety disorder)(Discharge Diagnosis) - 08/26/22 Mitral regurgitation(Discharge Diagnosis) - 08/26/22 Swelling of right lower extremity(Discharge Diagnosis) - 08/26/22 Attending Physician: Caitlyn Bowie MD Allergies, Adverse Reactions, Alerts Substance Reaction Severity Status ciprofloxacin Active penicillin 1 Active vancomycin Active morphine Active barium sulfate Active iodinated radiocontrast dyes Active Voltaren Active gentamicin Active erythromycin Active busPIRone Feeling of throat ti ghtness Headache Dizziness Active ipratropium Active sulfa drugs Active Biaxin Active Gastrografin Active Levaquin Avocado [...] CHF - Congestive heart failure Discharge Diagnosis 08/26/22 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 Discharge Diagnosis 08/26/22 MIS (generalized anxiety disorder) Discharge Diagnosis 08/26/22 Mitral regurgitation Discharge Diagnosis 08/26/22 Swelling of right lower extremity Discharge Diagnosis 08/26/22 Vital Signs Most recent to oldest [Reference Range]: 1 Height 160.02 cm (08/26/22 10:57 AM) Weight 59.1 kg (08/26/22 10:57 AM) Oxygen Saturation [94-100 %] 97 % (08/26/22 10:57 AM) Pulse Rate [55-90 bpm] 86 bpm (08/26/22 10:57 AM) Body Mass Index [18.5-24.99 kg/m2] 23.08 kg/m2 (08/26/22 10:57 AM) Blood Pressure [90-138/55-84 mm Hg] 110/ 50mm Hg (08/26/22 10:57 AM) Temperature [96.8-100.4 DegF] 97.8 DegF (08/26/22 10:57 AM) Mode of Delivery (Oxygen) Room air (08/26/22 10:57 AM) Blood pressure sites Arm, right (08/26/22 10:57 AM) Temperature Route Temporal (08/26/22 10:57 AM) Weight Obtained Via Standing scale (08/26/22 10:57 AM) Social History Social History Type Response Smoking Status Never smoker; Tobacc o user in household: No entered on: 04/05/17 Sex Note * Jhon Cruz: PERFORM, SIGN, VERIFY Event Display: Patient Education/Instruction Authored Date: [id number] [facility] Clinical Summary Name CINDA WATSON Age 77 Years 1945 PCP Caitlyn Bowie MD PCP Visit Date 08/26/2022 10:53:00 Additional Instructions: Scheduled Appointments?? Future Appointments ?*[facility]??[facility]iology1 [address]??[place],??[place],??[address] ?Phone:??--?Fax:??-- ?Appt. Date:??09/14/2022?1:45 PM ?Scheduled Provider:??Leno Camarillo MD ?*[facility] ?[address]??[place],??[place],??[address] ?Phone:??--?Fax:??-- ?Appt. Date:??09/26/2022?11:00 AM ?Scheduled Provider:??Caitlyn Bowie MD Follow-Up Instructions ?? Diagnosis Medications: Please continue your medications until treatment is completed or stopped by your provider. Discuss any questions related to medications with your provider. New Medications [facility], [address] [place], [place] [id number], [phone] Diazepam (diazepam 5 mg oral tablet) 1/2 tab 4 times per day; as needed anxiety & sleep. Refills: 1. Next Dose: Medications to Continue Taking That Have Changed These medications were not printed or sent to your pharmacy - Metoprolol (Metoprolol Succinate ER 25 mg oral tablet, extended release) TAKE ONE TABLET BY MOUTHTWICE A DAY WITH BREAKFAST AND DINNER. Next Dose: - Rosuvastatin (rosuvastatin 10 mg oral tablet) 1 tab(s) Oral Monday, Monday and Monday. Next Dose: Medications to Continue with No [...] needed for dizziness. Refills: 4. Next Dose: Montelukast (Singulair 10 mg oral tablet) 1 tab(s) Oral Daily in PM. Dr. Kelly. Next Dose: Multivitamin (B-Complex SR) 1 tab(s) Oral Daily. Next Dose: Omeprazole (omeprazole 40 mg oral enteric coated capsule) 1 capsule Oral Daily as needed. Next Dose: PredniSONE 5 Milligram Oral Daily. Next Dose: Trazodone (traZODone 50 mg oral tablet) 2 tab(s) Oral Daily at Bedtime. Dr. Kelly. Refills: 0. Next Dose: Warfarin (warfarin 1 mg oral tablet) take 1-3 tablets By Mouth Daily as directed by the anticoagulation clinic. Refills: 2. Next Dose: No Longer Take the Following Medications Enoxaparin 90 Milligram Subcutaneous Injection Daily. STOP ONCE INR IS 1.5. Allergy Info:?? Avocado; Shrimp; Mold; Contrast Dye; Bee Stings; Avelox; Levaquin; Gastrografin; Biaxin; Novocain; Flagyl; Zithromax; Voltaren; iodinated radiocontrast dyes; sulfa drugs; barium sulfate; morphine; ipratropium; busPIRone; vancomycin; penicillin; erythromycin; gentamicin; ciprofloxacin Medications Given This Visit Future Orders ?Comprehensive Metabolic Panel? Order Date:08/26/22?- Complete on or after?08/26/22 ?CBC w/ Differential? Order Date:08/26/22?- Complete on or after?08/26/22 ?US Doppler Ext Lower Venous Right? Order Date:08/26/22?- Complete on or after?08/26/22 ?B Type Natriuretic Peptide? Order Date:08/26/22?- Complete on or after?08/26/22 Vital Signs Height 160.02 cm Weight 59.1 kg BMI 23.08 kg/m2 Blood Pressure 110 mm Hg/50 mm Hg Temperature 97.8 DegF Pulse Rate 86 bpm Respiratory Rate 02 Sat Mode of Delivery 97 %/Room air You can now view a summary of your hospital visit from the comfort of your home through a free online portal called [employer]. [employer] is a website that allows you to securely view your medical information including discharge summary, medications and follow-up visits. ??You can alsosend a secure electronic message to your doctor???s office to request appointments, renew medications or just ask a question. You can enroll at [email or web address] or register during your next office visit. [...] a [facility] provider by calling [facility] Operative [employer] Link at [phone]. For information about the plan of care [...] Team Personnel Name: Val Wynne Position: [facility] Onco RN Member Role: Primary Care Nurse Name: Karen Pittman RN Position: S RN Member Role: Primary Care Nurse Name: Shilpi Mattson Position: Reference Physician Member Role: Primary Care Nurse Address: Address: [address] [place] [address] [address] [place] [address]- Name: Toyin Doherty RN Position: [facility] RN Member Role: Primary Care Nurse Name: Eben Hernandez NP Position: [facility] Associate Professional Member Role: Lifetime Consulting Provider Address: Address: [address] [place] [address]- Name: Alejandrina Turner RN Position: [facility] RN Member Role: Primary Care Nurse Name: Zoraida Felix RN Position: [facility] RN Member Role: Primary Care Nurse Name: Daphne Hooker RN Position: [facility] RN Member Role: Primary Care Nurse Name: Nasima Gonzalez RN Position: [facility] RN Supv Member Role: Primary Care Nurse Name: Caitlyn Bowie MD Position: [facility] Primary Care Physician Member Role: PCP Address: Address: [address] [place] [address]- Name: Sheeba García Position: [facility] RN Member Role: Primary Care Nurse Name: Kiki Abdi RN Position: [facility] RN Member Role: Primary Care Nurse Name: Marry Reza Position: [facility] RN Member Role: Primary Care Nurse Name: Veronica Hurst [place] Position: [facility] PCO RN Member Role: Lifetime Consulting Physician Name: Maddie Herrera RN Position: [facility] RN Member Role: Primary Care Nurse Name: Raegan Baptiste RN Position: [facility] RN Member Role: Primary Care Nurse Name: Svitlana Marcum RN Position: [facility] AMB Nurse Member Role: Primary Care Nurse Name: She Pool Position: [facility] RN Member Role: Primary Care Nurse Name: Kaila Latham RN Position: [facility] RN Member Role: Primary Care Nurse Name: Julio C Bahena Position: [facility] RN Member Role: Primary Care Nurse Name: Nasima Heredia RN Position: [facility] RN Member Role: Primary Care Nurse Name: Katherine Nixon PharmD Position: [facility] Associate Professional Member Role: Lifetime Consulting Provider Address: Address: [address] [place] [id number] Name: Daphne Barton RN Position: [facility] RN Member Role: Primary Care Nurse Name: Katherine Long RN Position: [facility] RN Member Role: Primary Care Nurse Name: Norma Serrano RN Position: [facility] RN Member Role: Primary Care Nurse Name: Seven Kelly RN Position: [facility] RN Member Role: Primary Care Nurse Name: Fani Perez RN Position: [facility] RN Member Role: Primary Care Nurse Name: Hattie Brewster RN Position: [facility] RN Member Role: Primary Care Nurse Name: Yudith Rothman RN Position: [facility] Onco RN Member Role: Primary Care Nurse Name: Kelly Hernandez RN Position: [facility] RN Member Role: Primary Care Nurse Name: Parris Zuluaga RN Position: [facility] RN Member Role: Primary Care Nurse Care Team Related Persons Name: MARK ZENAIDA Address: [place], [place] Name: TIA RIVERS Address: [address] [address] Name: JOHANN RETANA Address: [place] [address]
--- OUTSIDE RECORDS SUMMARY | 2023-10-14 16:53 | XMS_ITS | Continuity of Care Document ---
Author Organization [facility] Address [address] [place] [address]- Care Team Providers Care Rail Layer Name Role Phone Brennan Burnett MD Primary Care Physician En[facility] Date(s): 05/02/20 - 09/03/20 [facility] [address] [place] [address]- Attending Physician: [facility], Caitlyn Whaley Admitting Physician: [facility], Caitlyn Whaley Referring Physician: Peewee STARK, Sharon Allergies, Adverse Reactions, Alerts Substance Reaction Severity Status ciprofloxacin Active morphine Active barium sulfate Active Voltaren Active Gastrografin Active Levaquin Avocado Active gentamicin Active erythromycin Active penicillin 1 Active vancomycin Active sulfa drugs Active iodinated radiocontrast dyes Active Zithromax Active Flagyl Active Novocain Active Biaxin Active Bee Stings Active Contrast Dye Active Avocado Active Avelox Active Mold Active Shrimp Active 1Allergy testing do09/26 was negative so [...] By Mouth, Daily, Dr. primo Renee at [place], # 30 tablet, 0 Refills, Maintenance, 01/26/18 [...]
--- OUTSIDE RECORDS SUMMARY | 2023-10-14 16:53 | XMS_ITS | Continuity of Care Document ---
Author Organization [facility] Address [address] [place] [address]- Care Team Providers Care Hand Sewer Shoes Name Role Phone Peewee STARK, Sharon Primary Care Physician Encounter [facility] Date(s): 08/19/19 - 08/26/19 [facility] [address] [place] [address]- [facility] Attending Physician: Cristina Magallon NP Admitting Physician: Cristina Magallon NP Referring Physician: Cristofer Spivey MD Allergies, Adverse [...] By Mouth, Daily, Dr. primo Renee at [place], # 30 tablet, 0 Refills, Maintenance, 01/26/18 [...] oldest [Reference Range]: 1 Height 160 cm (08/19/19 9:00 AM) Weight 58.97 kg (08/19/19 9:00 AM) Pulse Rate [55-90 bpm] 76 bpm (08/19/19 9:00 AM) Body Mass Index [18.5-24.99] 23.04 (08/19/19 9:00 AM) Blood Pressure [90-138/55-84 mm Hg] 110/ 60mm Hg (08/19/19 9:00 AM) Blood pressure sites Arm, left (08/19/19 9:00 AM) Weight Obtained Via Patient/family state d (08/19/19 9:00 AM) Social History Social History Type Response Smoking Status Never smoker; Tobacc o user in household: No entered on: 04/05/17 Sex Female
--- OUTSIDE RECORDS SUMMARY | 2023-10-14 16:53 | XMS_ITS | Continuity of Care Document ---
Author Organization [facility] Address [address] [place] [address]- Care Team Providers Care Lockstitch Sleeve Maker Name Role Phone Caitlyn Bowie MD Primary Care Physician [facility] Date(s): 04/15/22 - 05/20/22 [facility] [address] [place], [place] [address] Attending Physician: Kay HIGH PRESSURE KETTLE OPERATOR, Rachel Allergies, Adverse Reactions, Alerts Substance [...] Care Team Personnel Name: Val Wynne Position: [facility] Onco RN Member Role: Primary Care Nurse Name: Karen Pittman RN Position: S RN Member Role: Primary Care Nurse Name: Shilpi Mattson Position: Reference Physician Member Role: Primary Care Nurse Address: Address: [address] [place] [address] [address] [place], [place] [address] Name: Toyin Doherty RN Position: S RN Member Role: Primary Care Nurse Name: Eben Hernandez NP Position: [facility] Associate Professional Member Role: Lifetime Consulting Provider Address: Address: [address] [place] [address] Name: Alejandrina Turner RN Position: [facility] RN Member Role: Primary Care Nurse Name: Zoraida Felix RN Position: [facility] RN Member Role: Primary Care Nurse Name: Daphne Hooker RN Position: [facility] RN Member Role: Primary Care Nurse Name: Nasima Gonzalez RN Position: [facility] RN Supv Member Role: Primary Care Nurse Name: Caitlyn Bowie MD Position: [facility] Primary Care Physician Member Role: PCP Address: Address: [address] [place] [address]- Name: Sheeba García Position: [facility] RN Member Role: Primary Care Nurse Name: Kiki Abdi RN Position: [facility] RN Member Role: Primary Care Nurse Name: Marry Reza Position: [facility] RN Member Role: Primary Care Nurse Name: Veronica Hurst [place] Position: [facility] PCO RN Member Role: Lifetime Consulting Physician Name: Maddie Herrera RN Position: [facility] RN Member Role: Primary Care Nurse Name: Raegan Baptiste RN Position: [facility] RN Member Role: Primary Care Nurse Name: Svitlana Marcum RN Position: [facility] AMB Nurse Member Role: Primary Care Nurse Name: She Pool Position: [facility] RN Member Role: Primary Care Nurse Name: Kaila Latham RN Position: [facility] RN Member Role: Primary Care Nurse Name: Julio C Bahena Position: [facility] RN Member Role: Primary Care Nurse Name: Nasima Heredia RN Position: [facility] RN Member Role: Primary Care Nurse Name: Katherine Nixon PharmD Position: [facility] Associate Professional Member Role: Lifetime Consulting Provider Address: Address: [address] [place] [address]- Name: Daphne Barton RN Position: [facility] RN Member Role: Primary Care Nurse Name: Katherine Long RN Position: [facility] RN Member Role: Primary Care Nurse Name: Norma Serrano RN Position: [facility] RN Member Role: Primary Care Nurse Name: Aurea Kelly RN Position: [facility] RN Member Role: Primary Care Nurse Name: Seven Kelly RN Position: [facility] RN Member Role: Primary Care Nurse Name: Fani Perez RN Position: [facility] RN Member Role: Primary Care Nurse Name: Emely Her Position: S RN Member Role: Primary Care Nurse Name: Yudith Rothman RN Position: [facility] RN Member Role: Primary Care Nurse Name: Parris Zuluaga RN Position: [facility] RN Member Role: Primary Care Nurse Care Team Related Persons Name: ZENAIDA FLORES Address: home [address] [place] [address] Name: TIA RIVERS Address: home [address] [place] [address] Name: JOHANN RETANA Address: [place] [address]
--- OUTSIDE RECORDS SUMMARY | 2023-10-14 16:54 | XMS_ITS | Continuity of Care Document ---
Author Organization [facility] Address [address] [place] [address]- Care Team Providers Care Beef Splitter Name Role Phone Brennan Burnett MD Primary Care Physician [phone] [place] [facility] [place] 11/02/20 - 12/02/20 [facility] [address] [place] [address]- Attending Physician: Melissa Morrison Admitting Physician: Melissa Morrison Referring Physician: Melissa Morrison Referring Physician: Kaila Molina Allergies, Adverse Reactions, Alerts Substance Reaction Severity Status ciprofloxacin Active gentamicin Active erythromycin Active morphine Active barium sulfate Active sulfa drugs Active iodinated radiocontrast dyes Active Voltaren Active Flagyl Active Novocain Active Biaxin Active Gastrografin Active Avelox Active Bee Stings Active Contrast Dye Active Mold Active penicillin 1 Active vancomycin Active Zithromax Active Levaquin Avocado Active Avocado Active Shrimp Active 1Allergy testing [...] By Mouth, Daily, Dr. primo Renee at [place], # 30 tablet, 0 Refills, Maintenance, 01/26/18 [...]
--- OUTSIDE RECORDS SUMMARY | 2023-10-14 16:54 | XMS_ITS | Continuity of Care Document ---
Author Organization [facility] Address [address] [place] [address]- Care Team Providers Care Independent Driver Name Role Phone Caitlyn Bowie MD Primary Care Physician [phone] [facility]counter [facility] Date(s): 06/17/21 - 07/17/21 [facility] [address] [place], [place] [address] Allergies, [...]
--- OUTSIDE RECORDS SUMMARY | 2023-10-14 16:54 | XMS_ITS | Continuity of Care Document ---
Author Organization [facility] Address [address] [address]- Care Team Providers Care Plaster Applicator Name Role Phone Peewee STARK, Sharon Primary Care Physician Encounter [facility] Date(s): 10/09/19 - 11/10/19 [facility] [address] [address]- [facility] Attending Physician: Not on Staff, Attending MD [...] By Mouth, Daily, Dr. primo Renee at [place], # 30 tablet, 0 Refills, Maintenance, 01/26/18 16:36:23 EDT, ER Tablet Start Date: 01/26/18 Status: Ordered metroNIDAZOLE 500 mg oral tablet 1 tablet = 500 mg, By Mouth, Every 8 hours, may take with food to minimize abdominal discomfort, # 18 tablet, 0 Refills, Maintenance, 09/06/19 14:42:00 EST, Tablet, [facility], 160, cm,09/06/19 7:35:00 EST, Height, [...]
--- OUTSIDE RECORDS SUMMARY | 2023-10-14 16:54 | XMS_ITS | Continuity of Care Document ---
Author Organization [facility] Address [address] [place] [address]- Care Team Providers Care Engine Watchman Name Role Phone Caitlyn Bowie MD Primary Care Physician [phone] Encounter [facility] Date(s): 01/25/23 - 02/01/23 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(Discharge Diagnosis) - 01/25/23 HTN (hypertension)(Discharge Diagnosis) - 01/25/23 Attending Physician: Caitlyn Bowie MD Allergies, Adverse [...] 0 Refills, Maintenance, 09/09/22 11:47:00EST, [facility], Partial fill upon patient request [...] 180 tablet, 2 Refills, Maintenance, 06/15/22 11:59:00 [facility], [facility], Partial fill [...] CHF - Congestive heart failure Discharge Diagnosis 01/25/23 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 Discharge Diagnosis 01/25/23 HTN (hypertension) Discharge Diagnosis 01/25/23 Vital Signs Most recent to oldest [Reference Range]: 1 Height 158 cm (01/25/23 10:52 AM) Weight 59.6 kg (01/25/23 10:52 AM) Oxygen Saturation [94-100 %] 97 % (01/25/23 10:52 AM) Pulse Rate [55-90 bpm] 79 bpm (01/25/23 10:52 AM) Body Mass Index [18.5-24.99 kg/m2] 23.87 kg/m2 (01/25/23 10:52 AM) Blood Pressure [90-138/55-84 mm Hg] 103/ 60mm Hg (01/25/23 10:52 AM) Temperature [96.8-100.4 DegF] 98.4 DegF (01/25/23 10:52 AM) Mode of Delivery (Oxygen) Room air (01/25/23 10:52 AM) Blood pressure sites Arm, left (01/25/23 10:52 AM) Temperature Route Temporal (01/25/23 10:52 AM) Weight Obtained Via Standing scale (01/25/23 10:52 AM) Social History Social History Type Response Smoking Status Never smoker; Tobacc o user in household: No entered on: 04/05/17 Sex Female Note * Yolande Lauren: PERFORM, SIGN, VERIFY Event Display: Patient Education/Instruction Authored Date: [id number] [facility] Clinical Summary Name CINDA WATSON Age 77 Years 1945 PCP Caitlyn Bowie MD PCP Visit Date 01/25/2023 10:40:00 Additional Instructions: Scheduled Appointments?? Future Appointments ?*[facility],??[place],??[address] ?Phone:??--?Fax:??-- ?Appt. Date:??02/16/2023?11:40 AM ?Scheduled Provider:??Anish Neil MD ?*[facility]??Cardiology1 [address]??[place],??[place],??[address] ?Phone:??--?Fax:??-- ?Appt. Date:??03/24/2023?10:25 AM ?Scheduled Provider:??Leno Camarillo MD ?*[facility] ?[address]??[place],??[place],??[address] ?Phone:??--?Fax:??-- ?Appt. Date:??04/06/2023?11:00 AM ?Scheduled Provider:??Caitlyn Bowie MD Follow-Up Instructions ?? Diagnosis Medications: Please continue your medications until treatment is completed or stopped by your provider. Discuss any questions related to medications with your provider. Medications to Continue Taking That Have Changed These medications were not printed or sent to your pharmacy - Furosemide 40 Milligram twice a day. Next Dose: Medications to Continue with No [...] Dose: No Longer Take the Following Medications Codeine (codeine sulfate 30 mg oral tablet) take 1/2 to 1 tablet By Mouth BID; as needed as needed for pain. Refills: 0. Allergy Info:?? Avocado; Shrimp; Mold; Contrast Dye; Bee Stings; Avelox; Levaquin; Gastrografin; Biaxin; Novocain; Flagyl; Zithromax; Voltaren; iodinated radiocontrast dyes; sulfa drugs; barium sulfate; morphine; ipratropium; busPIRone; vancomycin; penicillin; erythromycin; gentamicin; ciprofloxacin Medications Given This Visit Future Orders ?Basic Metabolic Panel? Order Date:01/25/23?- Complete on or after?01/25/23 Vital Signs Height 158 cm Weight 59.6 kg BMI 23.87 kg/m2 Blood Pressure 103 mm Hg/60 mm Hg Temperature 98.4 DegF Pulse Rate 79 bpm Respiratory Rate 02 Sat Mode of Delivery 97 %/Room air You can now view a summary of your hospital visit from the comfort of your home through a free online portal called [employer]. [employer] is a website that allows you to securely view your medical information including discharge summary, medications and follow-up visits. ??You can alsosend a secure electronic message to your doctor???s office to request appointments, renew medications or just ask a question. You can enroll at [email or web address] or register during your next [...] primary care provider, you may find a [facility] provider by calling [facility] Secret Link at [phone]. For information about the plan of care [...] Role: Primary Care Nurse Address: Address: [address] [address]- [place] Name: Toyin Doherty RN Position: [facility] RN Member Role: Primary Care Nurse Name: Eben Hernandez NP Position: [facility] Associate Professional Member Role: Lifetime Consulting Provider Address: Address: [address] [place] [address]- [place] Name: Alejandrina Turner RN Position: [facility] RN Member Role: Primary Care Nurse Name: Zoraida Felix RN Position: [facility] RN Member Role: Primary Care Nurse Name: Daphne Hooker RN Position: [facility] RN Member Role: Primary Care Nurse Name: Nasima Gonzalez RN Position: [facility] RN Supv Member Role: Primary Care Nurse Name: Caitlyn Bowie MD Position: [facility] Physician - Primary Care Member Role: PCP Address: Address: [address] [place] [address]- [place] Name: Kiki Abdi RN Position: [facility] RN Member Role: Primary Care Nurse Name: Marry Reza Position: [facility] RN Member Role: Primary Care Nurse Name: Veronica Hurst MA Position: [facility] AMB MA Member Role: Lifetime Consulting Physician Name: Maddie Herrera RN Position: [facility] AMB Nurse Member Role: Primary Care Nurse Name: Raegan Baptiste RN Position: [facility] RN Member Role: Primary Care Nurse Name: Svitlana Marcum RN Position: [facility] AMB Nurse Member Role: Primary Care Nurse Name: She Pool Position: [facility] RN Member Role: Primary Care Nurse Name: Kaila Latham RN Position: [facility] RN Member Role: Primary Care Nurse Name: Julio C Bahena Position: [facility] RN Member Role: Primary Care Nurse Name: Nasima Heredia RN Position: [facility] RN Member Role: Primary Care Nurse Name: Katherine Nixon PharmD Position: [facility] Associate Professional Member Role: Lifetime Consulting Provider Address: Address: [address] [place] [address]- Name: Daphne Barton RN [facility] [...] Care Nurse Name: Yudith Rothman RN Position: [facility] Onco RN Member Role: Primary Care Nurse Name: Kelly Hernandez RN Position: [facility] RN Member Role: Primary Care Nurse Name: Parris Zuluaga RN Position: [facility] RN Member Role: Primary Care Nurse Care Team Related Persons Name: ZENAIDA FLORES Address: [place] [address] Name: TIA RIVERS Address: [place] [address] Name: JOHANN RETANA Address: [place] [address]
--- OUTSIDE RECORDS SUMMARY | 2023-10-14 16:54 | XMS_ITS | Continuity of Care Document ---
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(Discharge Diagnosis) - 05/13/22 CHF - Congestive heart failure(Discharge Diagnosis) - 05/13/22 Attending Physician: Caitlyn Bowie MD Allergies, Adverse Reactions, Alerts Substance Reaction Severity Status ciprofloxacin Active busPIRone Feeling of throat ti ghtness Headache Dizziness Active barium sulfate Active iodinated radiocontrast dyes Active Zithromax Active gentamicin Active erythromycin Active penicillin 1 Active vancomycin Active ipratropium Active morphine Active sulfa drugs Active Voltaren Active Flagyl Active Gastrografin Active Levaquin Avocado Active Novocain [...] disease) from second hand smoke Discharge Diagnosis 05/13/22 CHF - Congestive heart failure Discharge Diagnosis 05/13/22 Social History Social History Type Response Smoking Status Never smoker; Tobacc o user in household: No entered on: 04/05/17 Sex Patient Care team information Care Team Personnel Name: Val Wynne Position: [facility] Onco RN Member Role: Primary Care Nurse Name: Karen Pittman RN Position: S RN Member Role: Primary Care Nurse Name: Shilpi Mattsoncasie Position: Reference Physician Member Role: Primary Care Nurse Address: Address: [address] [facility] [address] [place] [address]- [place] Name: Toyin Doherty RN Position: [facility] RN Member Role: Primary Care Nurse Name: Eben Hernandez NP Position: [facility] Associate Professional Member Role: Lifetime Consulting Provider Address: Address: [address] [place] [address]- Name: Alejandrina Turner RN Position: [facility] RN Member Role: Primary Care Nurse Name: Zoraida Felix RN Position: [facility] RN Member Role: Primary Care Nurse Name: Daphne Hooker RN Position: [facility] RN Member Role: Primary Care Nurse Name: Nasima Gonzalez RN Position: [facility] RN Loyda Member Role: Primary Care Nurse Name: Caitlyn Bowie MD Position: [facility] Primary Care Physician Member Role: PCP Address: Address: [address] [place] [address]- [place] Name: Sheeba García Position: [facility] RN Member Role: Primary Care Nurse Name: Kiki Abdi RN Position: [facility] RN Member Role: Primary Care Nurse Name: Marry Reza Position: [facility] RN Member Role: Primary Care Nurse Name: Veronica Hurst [place] Position: [facility] PCO RN Member Role: Lifetime Consulting Physician Name: Maddie Herrera RN Position: [facility] RN Member Role: Primary Care Nurse Name: Raegan Baptiste RN Position: [facility] RN Member Role: Primary Care Nurse Name: Svitlana Marcum RN Position: [facility] AMB Nurse Member Role: Primary Care Nurse Name: She Pool Position: [facility] RN Member Role: Primary Care Nurse Name: Kaila Latham RN Position: [facility] RN Member Role: Primary Care Nurse Name: Julio C Bahena Position: [facility] RN Member Role: Primary Care Nurse Name: Nasima Heredia RN Position: [facility] RN Member Role: Primary Care Nurse Name: Katherine Nixon PharmD Position: [facility] Associate Professional Member Role: Lifetime Consulting Provider Address: Address: [address] [place] [address]- [place] Name: Daphne Barton RN Position: [facility] RN Member Role: Primary Care Nurse Name: Katherine Long RN Position: [facility] RN Member Role: Primary Care Nurse Name: Norma Serrano RN Position: [facility] RN Member Role: Primary Care Nurse Name: Aurea Kelly RN Position: [facility] RN Member Role: Primary Care Nurse Name: Seven Kelly RN Position: [facility] RN Member Role: Primary Care Nurse Name: Fani Perez RN Position: [facility] RN Member Role: Primary Care Nurse Name: Emely Her Position: [facility] RN Member Role: Primary Care Nurse Name: Yudith Rothman RN Position: [facility] RN Member Role: Primary Care Nurse Name: Parris Zuluaga RN Position: [facility] RN Member Role: Primary Care Nurse Care Team Related Persons Name: MARK ZENAIDA Address: [address] [place] [address] Name: TIA RIVERS Address: home [address] [place] [address] Name: JOHANN RETANA Address: [place] [address]
--- OUTSIDE RECORDS SUMMARY | 2023-10-14 16:54 | XMS_ITS | Continuity of Care Document ---
Author Organization [facility] Address [address] [place] [address]- Care Team Providers Care Museum Preparator Name Role Phone Caitlyn Bowie MD Primary Care Physician Encounter [facility] Date(s): 11/12/21 - 01/18/22 [facility] [address] [place] [address]- Discharge Disposition: A-D/C Home Attending Physician: Samira [...] 04/16/17 Give n SARS-CoV-2 (COVID-19) mRNA-1273 vaccine 2/25/21 R ecorded [...] day, 0 Refills, Maintenance, 11/06/21 12:44:00 EDT, [place], Partialfill upon patient request if the prescription [...] 11/09/21 9:33:00 EDT, EC Capsule, [facility], Partial fill upon patient [...] (venous thromboembolism)(Confirmed) Active 1left eye 2lower extrem Vital Signs Most recent to oldest [Reference Range]: 1 Height 160 cm (11/18/21 9:04 AM) Weight 59.2 kg (11/18/21 9:04 AM) Pulse Rate [55-90 bpm] 83 bpm (11/18/21 9:04 AM) Body Mass Index [18.5-24.99] 23.13 (11/18/21 9:04 AM) Blood Pressure [90-138/55-84 mm Hg] 117/ 53mm Hg (11/18/21 9:04 AM) Temperature [96.8-100.4 DegF] 96.3 DegF *L* (11/18/21 9:04 AM) Blood pressure sites Arm, right (11/18/21 9:04 AM) Temperature Route Temporal (11/18/21 9:04 AM) Dry Weight 59.2 kg (11/18/21 9:04 AM) Weight Obtained Via Standing scale (11/18/21 9:04 AM) Dry Weight Obtained Via Standing scale (11/18/21 9:04 AM) Social History Social History Type Response Smoking Status Never smoker; Tobacc o user in household: No entered on: 04/05/17 Sex
--- OUTSIDE RECORDS SUMMARY | 2023-10-14 16:54 | XMS_ITS | Continuity of Care Document ---
Author Organization [facility] Address [address] [place] [address]- Care Team Providers Care Heel Shaper Name Role Phone Caitlyn Bowie MD Primary Care Physician Encounter [facility] Date(s): 11/15/22 - 12/15/22 [facility] [address] [place], [place] [address] Allergies, Adverse Reactions, Alerts Substance Reaction [...] Role: Primary Care Nurse Address: Address: [address] [place] [address]- Name: Toyin Doherty RN Position: S RN Member Role: Primary Care Nurse Name: Eben Hernandez NP Position: [facility] Associate Professional Member Role: Lifetime Consulting Provider Address: Address: [address] [place] [address]- Name: Alejandrina Turner RN Position: [facility] RN Member Role: Primary Care Nurse Name: Zoraida Felix RN Position: [facility] RN Member Role: Primary Care Nurse Name: Daphne Hooker RN Position: [facility] RN Member Role: Primary Care Nurse Name: Nasima Gonzalez RN Position: [facility] RN Supv Member Role: Primary Care Nurse Name: Caitlyn Bowie MD Position: [facility] Physician - Primary Care Member Role: PCP Address: Address: [address] [place] [address]- [place] Name: Kiki Abdi RN Position: [facility] RN Member Role: Primary Care Nurse Name: Marry Reza Position: [facility] RN Member Role: Primary Care Nurse Name: Veronica Hurst MA Position: [facility] SALLY MA Member Role: Lifetime Consulting Physician Name: Maddie Herrera RN Position: [facility] AMB Nurse Member Role: Primary Care Nurse Name: Raegan Baptiste RN Position: [facility] RN Member Role: Primary Care Nurse Name: Svitlana Marcum RN Position: [facility] AMB Nurse Member Role: Primary Care Nurse Name: She Pool Position: [facility] RN Member Role: Primary Care Nurse Name: Kaila Latham RN Position: [facility] RN Member Role: Primary Care Nurse Name: Julio C Bahena Position: [facility] RN Member Role: Primary Care Nurse Name: Nasima Heredia RN Position: [facility] RN Member Role: Primary Care Nurse Name: Katherine Nixon PharmD Position: [facility] Associate Professional Member Role: Lifetime Consulting Provider Address: Address: [address] [place] [address]- [place] Name: Daphne Barton RN Position: [facility] RN Member Role: Primary Care Nurse Name: Katherine Long RN Position: [facility] RN Member Role: Primary Care Nurse Name: Norma Serrano RN Position: [facility] RN Member Role: Primary Care Nurse Name: Seven Kelly RN Position: [facility] RN Member Role: Primary Care Nurse Name: Fani Perez RN Position: [facility] RN Member Role: Primary Care Nurse Name: Hattie Brewster RN Position: [facility] RN Member Role: Primary Care Nurse Name: Yudith Rothman RN Position: [facility] Onco RN Member Role: Primary Care Nurse Name: Kelly Hernandez RN Position: [facility] RN Member Role: Primary Care Nurse Name: Parris Zuluaga RN Position: [facility] RN Member Role: Primary Care Nurse Care Team Related Persons Name: ZENAIDA FLORES Address: [place] [address] Name: TIA RIVERS Address: [place] [address] Name: JOHANN RETANA Address: [place] [address]
--- OUTSIDE RECORDS SUMMARY | 2023-10-14 16:54 | XMS_ITS | Continuity of Care Document ---
Author Organization [facility] ter Address [address] [place] [address]- Care Team Providers Care Extract Puller Name Role Phone Azeb STARK, Caitlyn Thompson Primary Care Physician [phone] [place] [facility] - 02/08/[address] [address]- Encounter Diagnosis Acute hypoxemic respiratory failure(Final) - 02/02/21 COPD exacerbation(Final) - 02/02/21 Pneumonia(Final) - 02/02/21 Discharge Disposition: A-D/C Home Attending Physician: Ricardo STARK, George Howard Admitting Physician: Ean Gonzales MD Referring Physician: Not on Staff, Referring MD Allergies, Adverse Reactions, Alerts Substance Reaction Severity Status ciprofloxacin Active barium sulfate Active sulfa drugs Active iodinated radiocontrast dyes Active Gastrografin Active Levaquin Avocado Active Avelox Active gentamicin Active erythromycin Active penicillin 1 Active vancomycin Active morphine Active Voltaren Active Zithromax Active Flagyl Active [...] Solution Start Date: 01/26/18 Status: Ordered codeine-guaifenesin 10 mg-100 mg/5 mL oral syrup 10 mL, By Mouth, Every 4 hours, PRN Cough, for 3 days, # 120 mL, 0 Refills, Acute 02/11/21 8:24:00 EDT, 02/08/21 8:24:00 EDT, Syrup, [facility], Partial fill upon patient request if theprescription is for a schedule II opioid drug., 10... Start Date: 02/08/21 Stop Date: 02/11/21 Status: Ordered doxycycline monohydrate 100 mg oral capsule 1 capsule = 100 mg, By Mouth, Every 12 hours, for 2 days, # 4 capsule, 0 Refills, Acute 02/10/21 8:23:00 EDT, 02/08/21 8:23:00 EDT, Capsule, [facility], Partial fill upon patient request if the prescription is for a schedule II opioid . Start Date: 02/08/21 Stop Date: 02/10/21 Status: Ordered Dulcolax Stool Softener = 100 mg, By Mouth, 2 times a day, 0 Refills, Maintenance, 08/24/17 13:50:07 Start Date: 08/24/17 Status: Ordered EpiPen 2-Daniel = 0.3 mg, Intramuscular, Once, PRN anaphylaxis, 0 Refills, Maintenance, 03/01/18 15:32:26 EDT Start Date: 03/01/18 Status: Ordered metoprolol 25 mg oral tablet, extended release 50 mg, XL Tablet, By Mouth, 02/08/21 9:00:00 EDT Start Date: 02/08/21 Stop Date: 02/08/21 Status: Completed Metoprolol Succinate ER 50 mg oral tablet, extended release 1 tablet = 50 mg, By Mouth, 2 times a day, Dr. primo Renee at [place], per pt, # 30 tablet, 0 Refills, [...] Name Date Sputum Culture w/ Gram Smear 02/03/21 Blood Culture 02/03/21 Blood Culture #2 02/03/21 Microbiology Reports TEST:Sputum Culture STATUS:Auth (Verified) BODY SITE: SOURCE:EXPECT COLLECTED DATE/TIME:02/03/21 11:35 AM Sputum Culture SPECIMEN DESCRIPTION : EXPECTORATED SPUTUM SPECIAL REQUESTS : NONE GRAM STAIN : 4+ POLYMORPHONUCLEAR LEUKOCYTES 1+ SQ.EPITHELIAL CELLS 3+ GRAM POSITIVE COCCI 2+ GRAM NEGATIVE RODS CULTURE : 4+ NORMAL DION REPORT STATUS : FINAL 02/05/2021 TEST:Blood Culture, Second Order STATUS:Auth (Verified) BODY SITE: SOURCE:Blood COLLECTED DATE/TIME:02/03/21 8:25 AM Blood Culture, Second Order SPECIMEN DESCRIPTION : BLOOD RAC SPECIAL REQUESTS : NONE CULTURE : NO GROWTH 5 DAYS. REPORT STATUS : FINAL 02/08/2021 TEST:Blood Culture STATUS:Auth (Verified) BODY SITE: SOURCE:Blood COLLECTED DATE/TIME:02/03/21 8:10 AM Blood Culture SPECIMEN DESCRIPTION : BLOOD LF HAND SPECIAL REQUESTS : NONE CULTURE : NO GROWTH 5 DAYS. REPORT STATUS : FINAL 02/08/2021 Radiology Reports * Exam Date Time Procedure Performing Provider Status 02/03/21 2:34 PM Chest Portable Nanci Cheney; Au th (Verified) Notes: (Chest Portable) Reason For Exam: Cough RESULT: Chest Portable Chest Portable performed upright at 1:31 PM Reason: Cough; Clinical Question(s): Pneumonia COMPARISON: Multiple prior chest x-rays, the most recent of which is dated 02/02/[address] from earlier today. FINDINGS: LINES AND TUBES: None. LUNGS AND PLEURA: No significant interval change in multifocal areas of groundglass density in the right lung. Increasing retrocardiac left basilar density as well as mild hazy opacity in the left upper lung. Unchanged small left pleural effusion. No pneumothorax. HEART, MEDIASTINUM AND PAULIE: Heart is normal in size. Aorta is mildly calcified. BONES AND SOFT TISSUES: No acute abnormality. IMPRESSION: Multifocal areas of groundglass density as well as increasing retrocardiac left basilar opacity which may reflect multifocal pneumonia or atelectasis. Small left pleural effusion is unchanged. WSN: [id number] Ordering Physician: Viky Castro Dictated By: Rekha Warren MD Dictated Date/Time: 02/03/21 3:44 pm Reviewed By: Rekha Warren MD Signed By: Rekha Warren MD Signed Date/Time: 02/03/21 3:44 pm Transcribed By: MART Transcribed Date/Time: 02/03/21 3:39 pm * Exam Date Time Procedure Performing Provider Status 02/02/21 1:56 AM Chest Portable Richar Myles; Auth (Verified) Notes: (Chest Portable) Reason For Exam: Shortness of Breath RESULT: Chest Portable Chest Portable Reason: Shortness of Breath; Clinical Question(s): Pneumonia COMPARISON: 09/30/2020 FINDINGS: Left pleural-parenchymal disease is stable. Increased interstitial and alveolar markings centrally throughout the right lung. Findings most pronounced in the right lower lobe Nodular densities project over the right third anterior rib IMPRESSION: Stable chronic left pleural-parenchymal disease. Central interstitial and alveolar markings in the right lung most pronounced in the right lower lobe. Findings are consistent with pneumonia. Nodular densities also project over the right third anterior rib. These could also be infectious but neoplasm is not excluded. Follow-up to resolution is recommended. Discussed with Dr. Inman at the time of dictation. Patient is being admitted WSN: [id number] Ordering Physician: Maninder Sullivan Dictated By: Vamsi Cuello MD Dictated Date/Time: 02/02/21 8:27 am Reviewed By: Vamsi Cuello MD Signed By: Vamsi Cuello MD Signed Date/Time: 02/02/21 8:27 am Transcribed By: MART Transcribed Date/Time: 02/02/21 8:19 am Vital Signs Most recent to oldest [Reference Range]: 1 2 3 Height 160 cm (02/02/21 5:46 PM) Weight 65 kg (02/02/21 5:46 PM) Oxygen Saturation [94-100 %] 97 % (02/08/21 11:00 AM) 98 % (02/08/21 8:00 AM) 97 % (02/07/21 11:19 PM) Pulse Rate [55-90 bpm] 76 bpm (02/08/21 11:00 AM) 78 bpm (02/08/21 9:35 AM) 76 bpm (02/08/21 8:00 AM) Body Mass Index [18.5-24.99] 25.39 *H* (02/02/21 5:46 PM) Blood Pressure [90-138/55-84 mm Hg] 139/74mm Hg *H* (02/08/21 11:00 AM) 137/68mm Hg (02/08/21 9:35 AM) 137/68mm Hg (02/08/21 8:00 AM) Respiratory Rate [16-30 br/min] 18 br/min (02/08/21 11:00 AM) 18 br/min (02/08/21 8:00 AM) 18 br/min (02/07/21 11:19 PM) Temperature [96.8-100.4 DegF] 98.3 DegF (02/08/21 11:00 AM) 98.1 DegF (02/08/21 8:00 AM) 97.4 DegF (02/07/21 11:19 PM) Liters per Minute 1.5 L/min (02/07/21 7:00 AM) 1.5 L/min (02/06/21 10:00 PM) 1.5 L/min (02/06/21 7:00 PM) Mode of Delivery (Oxygen) Room air (02/08/21 11:00 AM) Room air (02/08/21 8:00 AM) CPAP (02/07/21 11:19 PM) Blood pressure sites Arm, right (02/08/21 11:00 AM) Arm, right (02/08/21 8:00 AM) Arm, right (02/07/21 11:19 PM) Temperature Route Oral (02/08/21 11:00 AM) Oral (02/08/21 8:00 AM) Axillary (02/07/21 11:19 PM) Dry Weight 65 kg (02/02/21 5:46 PM) Social History Social History Type Response Smoking Status Never smoker; Tobacc o user in household: No entered on: 04/05/17 Sex
--- OUTSIDE RECORDS SUMMARY | 2023-10-14 16:54 | XMS_ITS | Continuity of Care Document ---
Author Organization [facility] ter Address [address] [place] [address]- Care Team Providers Care Nurseryperson Name Role Phone Peewee STARK, Sharon Primary Care Physician [facility] Date(s): 07/17/19 - 07/24/[address] [address]- [facility] Attending Physician: Yenny Elizalde MD [...] By Mouth, Daily, Dr. primo Renee at [place], # 30 tablet, 0 Refills, Maintenance, 01/26/18 [...] tachycardia)(Confirmed) Active 1left eye 2lower extrem Results Microbiology Reports TEST:Urine Culture STATUS:Auth (Verified) BODY SITE: SOURCE:CLEAN COLLECTED DATE/TIME:07/17/19 10:52 AM Urine Culture SPECIMEN DESCRIPTION : CLEAN CATCH (URINE) SPECIAL REQUESTS : NONE CULTURE : NO GROWTH REPORT STATUS : FINAL 07/18/2019 Social History Social History Type Response Smoking Status Never smoker; Tobacc o user in household: No entered on: 04/05/17 Sex Female
--- OUTSIDE RECORDS SUMMARY | 2023-10-14 16:55 | XMS_ITS | Continuity of Care Document ---
Author Organization [facility] ter Address [address] [place] [address]- Care Team Providers Care Purchasing And Claims Supervisor Name Role Phone Caitlyn Bowie MD Primary Care Physician [place] [facility] [place](s): 04/14/22 - 04/14/[address] [address] Discharge Disposition: A-D/C Home Attending Physician: Maurice Walker MD Admitting Physician: Yojana Valdes MD Referring Physician: Not on Staff, Referring [...] days of antibiotics, as prescribed by your disability benefits specialist, 0 Refills, Maintenance, 04/14/22 10:18:00 EDT, Tablet, [...] congetsiton, 0 Refills, Maintenance, 11/06/21 12:44:00 EDT, [place], Partial fill upon patient request if the [...] Refills, Maintenance, 11/09/21 9:33:00 EDT, EC Capsule, [facility], Partial fill upon patient [...] release 25 mg, XL Tablet, By Mouth, 04/14/22 9:00:00 EDT Start Date: 04/14/22 Stop Date: 04/14/22 Status: Completed Toprol XL 25 mg oral tablet, extended [...] then follow up with Coumadin clinic for [facility], 0 Refills, Maintenance, 09/24/21 11:37:00 EDT, [...] Exam Date Time Procedure Performing Provider Status 04/12/22 7:24 PM Chest 2 Views Frontal and Lat Darian Vang; Auth (Verified) Notes: (Chest 2 Views Frontal and Lat) Reason For Exam: Angina RESULT: Chest 2 Views Frontal and Lat Chest 2 Views Frontal and Lat Hx of Present Illness: cp x2 days at cardiac rehab. pt reported pain in chest, neck, shoulders arms. pt reports off on sob. dizziness.; Reason: Angina; Clinical Question(s): CHF COMPARISON: [facility], most recent dated 03/06/2022 FINDINGS: LINES AND TUBES: None. LUNGS AND PLEURA: Persistent small to moderate left pleural effusion with linear fibrotic changes in the left mid lung, similar appearance to the prior study, with probable associated atelectasis. No new focal pulmonary opacities seen. No right pleural effusion. No pneumothorax. HEART, MEDIASTINUM AND PAULIE: Stable BONES AND SOFT TISSUES: No acute abnormality. Atherosclerotic calcifications of the thoracic and visualized abdominal aorta. IMPRESSION: No significant interval change in toczz-pe-dugucweb left pleural effusion and probable associated atelectasis and scarring in the left midlung. WSN: [id number] Ordering Physician: Hunter Pierce Dictated By: Sameera Paniagua MD Dictated Date/Time: 04/12/22 7:34 pm Reviewed By: Sameera Paniagua MD Signed By: Sameera Paniagua MD Signed Date/Time: 04/12/22 7:34 pm Transcribed By: MART Transcribed Date/Time: 04/12/22 7:32 pm Vital Signs Most recent to oldest [Reference Range]: 1 2 3 Height 160 cm (04/14/22 7:42 AM) 160 cm (04/14/22 5:02 AM) 160 cm (04/14/22 12:02 AM) Weight 60 kg (04/13/22 10:25 AM) Oxygen Saturation [94-100 %] 97 % (04/14/22 7:42 AM) 97 % (04/14/22 5:02 AM) 96 % (04/14/22 12:02 AM) Pulse Rate [55-90 bpm] 73 bpm (04/14/22 7:46 AM) 75 bpm (04/14/22 7:42 AM) 79 bpm (04/14/22 5:02 AM) Body Mass Index [18.5-24.99 kg/m2] 23.44 kg/m2 (04/13/22 10:25 AM) Blood Pressure [90-138/55-84 mm Hg] 123/59mm Hg (04/14/22 7:46 AM) 123/59mm Hg (04/14/22 7:42 AM) 105/55mm Hg (04/14/22 5:02 AM) Respiratory Rate [16-30 br/min] 18 br/min (04/14/22 7:42 AM) 18 br/min (04/14/22:02 AM) 18 br/min (04/14/22 12:02 AM) Temperature [96.8-100.4 DegF] 98.4 DegF (04/14/22 7:42 AM) 98.4 DegF (04/14/22 5:02 AM) 98.1 DegF (04/14/22 12:02 AM) Liters per Minute 3 L/min (04/13/22 6:21 AM) Mode of Delivery (Oxygen) Room air (04/14/22 7:42 AM) Room air (04/14/22 5:02 AM) Room air (04/14/22 12:02 AM) Blood pressure sites Arm, left (04/14/22 5:02 AM) Arm, right (04/14/22 12:02 AM) Arm, right (04/13/22 8:52 PM) Temperature Route Oral (04/14/22 7:42 AM) Oral (04/14/22 5:02 AM) Oral (04/14/22 12:02 AM) Dry Weight 60 kg (04/13/22 10:25 AM) Social History Social History Type Response Smoking Status Never smoker; Tobacc o user in household: No entered on: 04/05/17 Sex Female Note * BHSPowerscribe , CIS S: TRANSCRIBE Sameera Paniagua MD: VERIFY Event Display: Result: Authored Date: Chest 2 Views Frontal and Lat Hx of Present Illness: cp x2 days at cardiac rehab. pt reported pain in chest, neck, shoulders arms. pt reports off on sob. dizziness.; Reason: Angina; Clinical Question(s): CHF COMPARISON: [facility], most recent dated 03/06/2022 FINDINGS: LINES AND TUBES: None. LUNGS AND PLEURA: Persistent small to moderate left pleural effusion with linear fibrotic changes in the left mid lung, similar appearance to the prior study, with probable associated atelectasis. No new focal pulmonary opacities seen. No right pleural effusion. No pneumothorax. HEART, MEDIASTINUM AND PAULIE: Stable BONES AND SOFT TISSUES: No acute abnormality. Atherosclerotic calcifications of the thoracic and visualized abdominal aorta. IMPRESSION: No significant interval change in allxj-ch-obrauiih left pleural effusion and probable associated atelectasis and scarring in the left midlung. WSN: [id number] Ordering Physician: Hunter Pierce Dictated By: Sameera Paniagua MD Dictated Date/Time: 04/12/22 7:34 pm Reviewed By: Sameera Paniagua MD Signed By: Sameera Paniagua MD Signed Date/Time: 04/12/22 7:34 pm Transcribed By: MART Transcribed Date/Time: 04/12/22 7:32 pm Patient Care team information Personnel Name: Caitlyn Bowie MD Address: Address: [address] [place] [address]
--- OUTSIDE RECORDS SUMMARY | 2023-10-14 16:55 | XMS_ITS | Continuity of Care Document ---
Author Organization [facility] Address [address] [place] [address]- Care Team Providers Care Precision Lens Grinder Apprentice Name Role Phone Brennan Burnett MD Primary Care Physician [facility] Date(s): 05/29/20 - 06/28/20 [facility] [address] [place] [id number] Referring Physician: Merissa Williamson Allergies, Adverse Reactions, [...] By Mouth, Daily, Dr. primo Renee at [place], # 30 tablet, 0 Refills, Maintenance, 01/26/18 [...]
--- OUTSIDE RECORDS SUMMARY | 2023-10-14 16:55 | XMS_ITS | Continuity of Care Document ---
Author Organization [facility] ter Address [address] [place] [address]- Care Team Providers Care Cold Strip Feeder Name Role Phone Caitlyn Bowie MD Primary Care Physician [phone] Encounter [facility] Date(s): 10/05/21 - 10/05/[address] [address]- Discharge Disposition: A-D/C Home Attending Physician: Mikel Martel DO Admitting Physician: Mikel Martel DO Referring Physician: Not on Staff, Referring MD [...] Range]: 1 2 3 Height 160 cm (10/05/21 7:57 AM) 160 cm (10/05/21 7:57 AM) Weight 56 kg (10/05/21 7:57 AM) 56 kg (10/05/21 7:57 AM) Oxygen Saturation [94-100 %] 94 % (10/05/21 12:06 PM) 100 % (10/05/21 10:02 AM) 100 % (10/05/21 7:57 AM) Pulse Rate [55-90 bpm] 84 bpm (10/05/21 12:06 PM) 76 bpm (10/05/21 10:02 AM) 86 bpm (10/05/21 7:57 AM) Body Mass Index [18.5-24.99] 21.88 (10/05/21 7:57 AM) Blood Pressure [90-138/55-84 mm Hg] 146/78mm Hg *H* (10/05/21 12:06 PM) 165/75mm Hg *H* (10/05/21 10:02 AM) 145/72mm Hg *H* (10/05/21 7:57 AM) Respiratory Rate [16-30 br/min] 18 br/min (10/05/21 12:06 PM) 18 br/min (10/05/21 10:02 AM) 16 br/min (10/05/21 7:57 AM) Temperature [96.8-100.4 DegF] 99.0 DegF (10/05/21 7:57 AM) Mode of Delivery (Oxygen) Room air (10/05/21 12:06 PM) Room air (10/05/21 10:02 AM) Room air (10/05/21 7:57 AM) Blood pressure sites Arm, left (10/05/21 12:06 PM) Arm, left (10/05/21 10:02 AM) Arm, left (10/05/21 7:57 AM) Temperature Route Oral (10/05/21 7:57 AM) Weight Obtained Via Patient/family state d (10/05/21 7:57 AM) Social History Social History Type Response Smoking Status Never smoker; Tobacc o user in household: No entered on: 04/05/17 Sex
--- OUTSIDE RECORDS SUMMARY | 2023-10-14 16:55 | XMS_ITS | Continuity of Care Document ---
Author Organization [facility] Address [address] [place] [address]- Care Team Providers Care Cardiopulmonary Technologist Name Role Phone Caitlyn Bowie MD Primary Care Physician Encounter [facility] R [id number] Date(s): 08/14/23 - 08/21/23 [facility] [address] [place], [place] [address] Encounter Diagnosis CHF - Congestive heart failure(Discharge Diagnosis) - 08/14/23 HTN (hypertension)(Discharge Diagnosis) - 08/14/23 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(Discharge Diagnosis) - 08/14/23 Attending Physician: Caitlyn Bowie MD Allergies, Adverse [...] CHF - Congestive heart failure Discharge Diagnosis 08/14/23 HTN (hypertension) Discharge Diagnosis 08/14/23 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 Discharge Diagnosis 08/14/23 Vital Signs Most recent to oldest [Reference Range]: 1 Height 159 cm (08/14/23 10:58 AM) Weight 59.0 kg (08/14/23 10:58 AM) Oxygen Saturation [94-100 %] 98 % (08/14/23 10:58 AM) Pulse Rate [55-90 bpm] 65 bpm (08/14/23 10:58 AM) Body Mass Index [18.5-24.99 kg/m2] 23.34 kg/m2 (08/14/23 10:58 AM) Blood Pressure [90-138/55-84 mm Hg] 122/ 68mm Hg (08/14/23 10:58 AM) Mode of Delivery (Oxygen) Room air (08/14/23 10:58 AM) Blood pressure sites Arm, left (08/14/23 10:58 AM) Social History Social History Type Response Smoking Status Never smoker; Tobacc o user in household: No entered on: 04/05/17 Sex Patient Care team information Care Team Personnel Name: Val Wynne Position: [facility] Onco RN Member Role: Primary Care Nurse Name: Zain YOU, Karen Bella Position: [facility] RN Member Role: Primary Care Nurse Name: Shilpi Mattson Position: Reference Physician Member Role: Primary Care Nurse Address: Address: [address] [place] [address]- Name: Toyin Doherty RN Position: [facility] RN Member Role: Primary Care Nurse Name: Eben Hernandez NP Position: [facility] Associate Professional Member Role: Lifetime Consulting Provider Address: Address: [address] [place] [address]- [place] Name: Alejandrina Turner RN Position: [facility] RN Member Role: Primary Care Nurse Name: Zoraida Felix RN Position: [facility] ED RN W/OE and Tasks Member Role: Primary Care Nurse Name: Jaye Harley Position: [facility] [place] Chief Maintenance Supervisor Member Role: Pulp Maker Name: Daphne Hooker RN Position: [facility] RN Member Role: Primary Care Nurse Name: Nasima Gonzalez RN Position: [facility] RN Supv Member Role: Primary Care Nurse Name: Caitlyn Bowie MD Position: [facility] Physician - Primary Care Member Role: PCP Address: Address: [address] [place] [address]- [place] Name: Kiki Abdi RN Position: [facility] RN Member Role: Primary Care Nurse Name: Marry Reza Position: [facility] RN Member Role: Primary Care Nurse Name: Veronica Hurst MA Position: [facility] SALLY [place] Member Role: Lifetime Consulting Physician Name: Maddie Herrera RN Position: [facility] AMB Nurse Member Role: Primary Care Nurse Name: Yudith Herrera RN Position: [facility] Onco RN Member Role: Primary Care Nurse Name: Raegan Baptiste RN Position: S RN Member Role: Primary Care Nurse Name: She Pool Position: S RN Member Role: Primary Care Nurse Name: Kaila Latham RN Position: [facility] ED RN W/OE and Tasks Member Role: Primary Care Nurse Name: Julio C Bahena Position: S RN Member Role: Primary Care Nurse Name: Nasima Heredia RN Position: [facility] RN Member Role: Primary Care Nurse Name: Katherine Nixon PharmD Position: [facility] Associate Professional Member Role: Lifetime Consulting Provider Address: Address: [address] [place] [id number] Name: Daphne Barton RN Position: [facility] RN Member Role: Primary Care Nurse Name: Katherine Long RN Position: [facility] RN Member Role: Primary Care Nurse Name: Norma Serrano RN Position: [facility] RN Member Role: Primary Care Nurse Name: Seven Kelly RN Position: [facility] ED RN W/OE and Tasks Member Role: Primary Care Nurse Name: Fani Perez RN Position: [facility] RN Member Role: Primary Care Nurse Name: Hattie Brewster RN Position: [facility] RN Member Role: Primary Care Nurse Name: Kelly Hernandez RN Position: [facility] RN Member Role: Primary Care Nurse Name: Pallavi Wylie LPN Position: [facility] RN Member Role: Primary Care Nurse Name: Parris Zuluaga RN Position: [facility] RN Member Role: Primary Care Nurse Care Team Related Persons Name: ZENAIDA FLORES Address: [place] [address] Name: TIA RIVERS Address: [place] [address] Name: JOHANN RETANA Address: [place] [address]
--- OUTSIDE RECORDS SUMMARY | 2023-10-14 16:55 | XMS_ITS | Continuity of Care Document ---
Author Organization [facility] Address [address] [place] [address]- Care Team Providers Care Contract Associate Manager Name Role Phone Azeb STARK, Caitlyn Thompson Primary Care Physician [facility]): 12[facility]21 - 01/21/22 [facility] [address] [place], [place] [address] Allergies, Adverse [...] day, 0 Refills, Maintenance, 11/06/21 12:44:00 EDT, [place], Partialfill upon patient request if the prescription [...] Refills, Maintenance, 11/09/21 9:33:00 EDT, EC Capsule, [facility], Partial fill upon patient [...]
--- OUTSIDE RECORDS SUMMARY | 2023-10-14 16:55 | XMS_ITS | Continuity of Care Document ---
Author Organization [facility] Address [address] [place] [address]- Care Team Providers Care Geothermal Plant Manager Name Role Phone Caitlyn Bowie MD Primary Care Physician [facility] Date(s): 03/01/21 - 03/31/21 [facility] [address] [place], [place] [address] Allergies, Adverse Reactions, Alerts [...] times a day, Dr. primo Renee at [place], per pt, # 30 tablet, 0 Refills, [...]
--- OUTSIDE RECORDS SUMMARY | 2023-10-14 16:55 | XMS_ITS | Continuity of Care Document ---
Author Organization [facility] Address [address] [place] [address]- Care Team Providers Care Baller Tender Name Role Phone Caitlyn Bowie MD Primary Care Physician [phone] Encounter [facility] Date(s): 01/29/21 - 03/17/21 [facility] [address] [place], [place] [address] Attending Physician: Caitlyn Bowie MD Allergies, Adverse Reactions, Alerts Substance Reaction Severity Status ciprofloxacin Active gentamicin Active ipratropium Active barium sulfate Active iodinated radiocontrast dyes Active Voltaren Active Novocain Active Biaxin Active erythromycin Active penicillin 1 Active vancomycin Active morphine Active sulfa drugs Active Zithromax Active Flagyl Active Gastrografin Active Levaquin Avocado Active Bee Stings Active Contrast Dye Active Avocado Active Avelox Active Mold Active Shrimp Active 1Allergy testing doen 09/26 was negative so unlikely she is allergic to this Immunizations Given and Recorded Vaccine Date Status Refusal Reason SARS-CoV-2 (COVID-19) mRNA-1275 vaccine 08/06/20 R ecorded Influenza Virus Vaccine [...] 9:04:00 EDT, 03/16/21 9:04:00 EDT, REC Powder, [facility], Partial fill upon patient [...] times a day, Dr. primo Renee at [place], per pt, # 30 tablet, 0 Refills, [...]
--- OUTSIDE RECORDS SUMMARY | 2023-10-14 16:55 | XMS_ITS | Continuity of Care Document ---
Author Organization [facility] Address [address] [place] [address]- Care Team Providers Care Block Paver Name Role Phone Caitlyn Bowie MD Primary Care Physician [place] [facility] [place] Date(s): 06/14/21 - 06/21/21 [facility] [address] [place], [place] [address] Attending Physician: Caitlyn Bowie MD Allergies, Adverse Reactions, Alerts Substance Reaction Severity Status ciprofloxacin Active barium sulfate Active Zithromax Active Flagyl Active gentamicin Active erythromycin Active penicillin 1 Active vancomycin Active ipratropium Active morphine Active sulfa drugs Active iodinated radiocontrast dyes Active Voltaren Active Gastrografin Active Levaquin Avocado Active Avelox Active Bee Stings Active Contrast Dye Active Avocado Active Novocain Active Biaxin Active Mold Active Shrimp Active 1Allergy testing [...] Start Date: 01/26/18 Status: Ordered nystatin topical 671959 u/gm powder 1 application, Topically, 3 times [...] oldest [Reference Range]: 1 Height 160 cm (06/14/21 9:41 AM) Weight 58.4 kg (06/14/21 9:41 AM) Oxygen Saturation [94-100 %] 98 % (06/14/21 9:41 AM) Pulse Rate [55-90 bpm] 76 bpm (06/14/21 9:41 AM) Body Mass Index [18.5-24.99] 22.81 (06/14/21 9:41 AM) Blood Pressure [90-138/55-84 mm Hg] 116/ 60mm Hg (06/14/21 9:41 AM) Respiratory Rate [16-30 br/min] 16 br/mi n (06/14/21 9:41 AM) Temperature [96.8-100.4 DegF] 97.6 DegF (06/14/21 9:41 AM) Mode of Delivery (Oxygen) Room air (06/14/21 9:41 AM) Blood pressure sites Arm, left (06/14/21 9:41 AM) Temperature Route Temporal (06/14/21 9:41 AM) Weight Obtained Via Standing scale (06/14/21 9:41 AM) Social History Social History Type Response Smoking Status Never smoker; Tobacc o user in household: No entered on: 04/05/17 Sex
--- OUTSIDE RECORDS SUMMARY | 2023-10-14 16:55 | XMS_ITS | Continuity of Care Document ---
Author Organization [facility] Address [address] [place] [address]- Care Team Providers Care Director Of Patient Care Name Role Phone Sharon Vides MD Primary Care Physician [place] [facility] Date(s): 04/06/20 - 05/06/20 [facility] [address] [place] [address]- [facility] Allergies, Adverse Reactions, Alerts Substance Reaction [...] By Mouth, Daily, Dr. primo Renee at [place], # 30 tablet, 0 Refills, Maintenance, 01/26/18 [...]
--- OUTSIDE RECORDS SUMMARY | 2023-10-14 16:55 | XMS_ITS | Continuity of Care Document ---
Author Organization [facility] Address [address] [place] [address]- Care Team Providers Care Shot Core Drill Operator Helper Name Role Phone Caitlyn Bowie MD Primary Care Physician [phone] Encounter [facility] [place] Date(s): 04/06/23 - 04/13/23 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 Discharge Diagnosis 04/06/23 HTN (hypertension) Discharge Diagnosis 04/06/23 MIS (generalized anxiety disorder) Discharge Diagnosis 04/06/23 Antiphospholipid syndrome Discharge Diagnosis 04/06/23 Vital Signs Most recent to oldest [Reference Range]: 1 Height 158 cm (04/06/23 11:09 AM) Weight 60.5 kg (04/06/23 11:09 AM) Oxygen Saturation [94-100 %] 97 % (04/06/23 11:09 AM) Pulse Rate [55-90 bpm] 77 bpm (04/06/23 11:09 AM) Body Mass Index [18.5-24.99 kg/m2] 24.23 kg/m2 (04/06/23 11:09 AM) Blood Pressure [90-138/55-84 mm Hg] 112/ 61mm Hg (04/06/23 11:09 AM) Temperature [96.8-100.4 DegF] 98.1 DegF (04/06/23 11:09 AM) Mode of Delivery (Oxygen) Room air (04/06/23 11:09 AM) Blood pressure sites Arm, left (04/06/23 11:09 AM) Temperature Route Temporal (04/06/23 11:09 AM) Weight Obtained Via Standing scale (04/06/23 11:09 AM) Social History Social History Type Response Smoking Status Never smoker; Tobacc o user in household: No entered on: 04/05/17 Sex Female Note * [place]: PERFORM, SIGN, VERIFY Event Display: Patient Education/Instruction Authored Date: [id number] [facility] *No [facility] Clinical Summary Name CINAD WATSON Age 78 Years 1945 PCP Caitlyn Bowie MD PCP Visit Date 04/06/2023 11:02:00 Additional Instructions: Scheduled Appointments?? Future Appointments ?*No??[facility] [address],??[place],??[address] ?Phone:??--?Fax:??-- ?Appt. Date:??06/29/2023?11:00 AM ?Scheduled Provider:??Caitlyn Bowie [...] as needed Wheezing/Shortness of Breath. Next Dose: Baclofen (baclofen 10 mg oral tablet) 1/2 to 1 tablet twice daily for pain as needed; as needed Pain , Moderate. Refills: 0. Next Dose: Diazepam (diazepam 5 mg oral tablet) 1/2 tab 4 times per day; as needed anxiety & sleep. Refills: 1. Next Dose: Docusate (docusate sodium 100 mg oral capsule) 1 capsule Oral twice a day. Next Dose: Durable Medical Equipment (Orthotics) Molded orthotics for bilateral feet. Diagnosis: Arthritis of feet with pain. Refills: 0. Next Dose: elderberry 350 Milligram Oral Daily. Next Dose: elderberry (elderberry oral liquid) 15 [...] Orders ?No future orders Vital Signs Height 158 cm Weight 60.5 kg BMI 24.23 kg/m2 Blood Pressure 112 mm Hg/61 mm Hg Temperature 98.1 DegF Pulse Rate 77 bpm Respiratory Rate 02 Sat Mode of Delivery 97 %/Room air You can now view a summary of your hospital visit from the comfort of your home through a free online portal called [address] [address]. [address] [address] is a website that allows you to securely view your medical information including discharge summary, medications and follow-up visits. ??You can alsosend a secure electronic message to your doctor???s office to request appointments, renew medications or just ask a question. You can enroll at [email or web address] or register during your next office [...] primary care provider, you may find a [facility] provider by calling [facility] at [phone]. [facility], in keeping with [facility] guidance, no longer requires face masks [...] Care Nurse Name: Karen Pittman RN Position: [facility] RN Member Role: Primary Care Nurse Name: Shilpi Mattson Position: Reference Physician Member Role: Primary Care Nurse Address: Address: [address] [place] [address]- Name: Toyin Doherty RN Position: [facility] RN Member Role: Primary Care Nurse Name: Eben Hernandez NP Position: [facility] Associate Professional Member Role: Lifetime Consulting Provider Address: Address: [address] [place] [address]- [place] Name: Alejandrina Turner RN Position: [facility] RN Member Role: Primary Care Nurse Name: Zoraida Felix RN Position: S RN Member Role: Primary Care Nurse Name: Daphne Hooker RN Position: S RN Member Role: Primary Care Nurse Name: Nasima Gonzalez RN Position: [facility] RN Suprodney Member Role: Primary Care Nurse Name: Caitlyn Bowie MD Position: [facility] Physician - Primary Care Member Role: PCP Address: Address: [address] [place] [address]- [place] Name: Kiki Abdi RN Position: S RN Member Role: Primary Care Nurse Name: Marry Reza Position: S RN Member Role: Primary Care Nurse Name: Veronica Hurst [place] Position: [facility] SALLY [place] Member Role: Lifetime Consulting Physician Name: Maddie Herrera RN Position: [facility] SALLY Nurse Member Role: Primary Care [...] Care Nurse Name: Katherine Nixon PharmD Position: [facility] Associate Professional Member Role: Lifetime Consulting Provider Address: Address: [address] [place] [address] Name: Daphne Barton RN Position: [facility] [...] Care Nurse Name: Hattie Brewster RN Position: [facility] RN Member Role: Primary Care Nurse Name: Yudith Rothman RN Position: [facility] Onco RN Member Role: Primary Care Nurse Name: Kelly Hernandez RN Position: [facility] RN Member Role: Primary Care Nurse Name: Parris Zuluaga RN Position: [facility] RN Member Role: Primary Care Nurse Care Team Related Persons Name: ZENAIDA FLORES Address: [place] [address] Name: TIA RIVERS Address: [place] [address] Name: JOHANN RETANA Address: [place], [place]
--- OUTSIDE RECORDS SUMMARY | 2023-10-14 16:55 | XMS_ITS | Continuity of Care Document ---
Author Organization [facility] Address [address] [address]- Care Team Providers Care Melter Supervisor Electric Arc Furnace Name Role Phone Caitlyn Bowie MD Primary Care Physician [facility]counter [facility] Date(s): 10/25/21 - 11/24/21 [facility] [address] [address] Allergies, Adverse Reactions, [...] day, 0 Refills, Maintenance, 11/06/21 12:44:00 EDT, [place], Partialfill upon patient request if the prescription [...] Maintenance, 11/09/21 9:33:00 EDT, EC Capsule, [facility], Partial fill upon patient request [...]
--- OUTSIDE RECORDS SUMMARY | 2023-10-14 16:55 | XMS_ITS | Continuity of Care Document ---
Author Organization [facility] Address [address] [place] [address]- Care Team Providers Care Ballast Regulator Operator Name Role Phone Caitlyn Bowie MD Primary Care Physician [phone] Encounter [facility] [place] Date(s): 04/24/21 - 04/29/[address] [address]- Encounter Diagnosis Pleural effusion(Final) - 04/24/21 History of lung cancer(Final) - 04/24/21 Factor V Leiden(Final) - 04/24/21 Antiphospholipid syndrome(Final) - 04/24/21 Factor V Leiden(Final) - 04/24/21 Antiphospholipid syndrome(Final) - 04/24/21 Pleural effusion(Final) - 04/24/21 History of lung cancer(Final) - 04/24/21 Discharge Disposition: A-D/C Home Attending Physician: Christian STARK, Jianpricila Admitting Physician: Brian Blake MD Referring Physician: Not on Staff, Referring MD Allergies, Adverse Reactions, Alerts Substance Reaction Severity Status ciprofloxacin Active vancomycin Active ipratropium Active barium sulfate Active Zithromax Active Novocain Active Biaxin Active gentamicin Active erythromycin Active penicillin 1 Active morphine Active sulfa drugs Active iodinated radiocontrast dyes Active Voltaren Active Flagyl Active Gastrografin Active Levaquin Avocado Active Avelox [...] oral tablet 25 mg, Tablet, By Mouth, 04/29/21 9:00:00 EDT Start Date: 04/29/21 Stop Date: 04/29/21 Status: Completed Metoprolol Succinate ER 50 mg [...] Results Orders for Microbiology Reports Name Date Blood Culture 04/24/21 Blood Culture #2 04/24/21 Microbiology Reports TEST:Blood Culture, Second Order STATUS:Auth (Verified) BODY SITE: SOURCE:Blood COLLECTED DATE/TIME:04/24/21 5:20 AM Blood Culture, Second Order SPECIMEN DESCRIPTION : BLOOD NOSITE SPECIAL REQUESTS : NONE CULTURE : NO GROWTH 5 DAYS. REPORT STATUS : FINAL 04/29/2021 TEST:Blood Culture STATUS:Auth (Verified) BODY SITE: SOURCE:Blood COLLECTED DATE/TIME:04/24/21 5:15 AM Blood Culture SPECIMEN DESCRIPTION : BLOOD NOSITE SPECIAL REQUESTS : NONE CULTURE : NO GROWTH 5 DAYS. REPORT STATUS : FINAL 04/29/2021 Vital Signs Most recent to oldest [Reference Range]: 1 2 3 Height 160 cm (04/29/21 3:06 AM) 160 cm (04/28/21 10:37 PM) 160 cm (04/28/21 3:52 PM) Weight 61.6 kg (04/24/21 10:03 AM) Oxygen Saturation [94-100 %] 97 % (04/29/21 11:35 AM) 96 % (04/29/21 8:15 AM) 95 % (04/29/21 3:06 AM) Pulse Rate [55-90 bpm] 92 bpm *H* (04/29/21 11:35 AM) 92 bpm *H* (04/29/21 8:27 AM) 92 bpm *H* (04/29/21 8:15 AM) Body Mass Index [18.5-24.99] 24.06 (04/24/21 10:03 AM) Blood Pressure [90-138/55-84 mm Hg] 102/64mm Hg (04/29/21 11:35 AM) 130/62mm Hg (04/29/21 8:27 AM) 130/62mm Hg (04/29/21 8:15 AM) Respiratory Rate [16-30 br/min] 18 br/min (04/29/21 11:35 AM) 18 br/min (04/29/21 8:15 AM) 18 br/min (04/29/21 3:06 AM) Temperature [96.8-100.4 DegF] 97.7 DegF (04/29/21 11:35 AM) 98.5 DegF (04/29/21 8:15 AM) 97.7 DegF (04/29/21 3:06 AM) Liters per Minute 3 L/min (04/26/21 3:37 AM) 3 L/min (04/25/21 11:51 PM) 3 L/min (04/25/21 7:46 PM) Mode of Delivery (Oxygen) Room air (04/29/21 11:35 AM) Room air (04/29/21 8:15 AM) Room air (04/29/21 3:06 AM) Blood pressure sites Arm, left (04/29/21 11:35 AM) Arm, left (04/29/21 8:15 AM) Arm, left (04/29/21 3:06 AM) Temperature Route Oral (04/29/21 11:35 AM) Oral (04/29/21 8:15 AM) Oral (04/29/21 3:06 AM) Dry Weight 61.6 kg (04/24/21 10:03 AM) Weight Obtained Via Bed scale (04/24/21 10:03 AM) Dry Weight Obtained Via Bed scale (04/24/21 10:03 AM) Social History Social History Type Response Smoking Status Never smoker; Tobacc o user in household: No entered on: 04/05/17 Sex
--- OUTSIDE RECORDS SUMMARY | 2023-10-14 16:55 | XMS_ITS | Continuity of Care Document ---
Author Organization [facility] Address [address] [place] [address]- Care Team Providers Care Rolled Glass Crosscutter Name Role Phone Azeb STARK, Caitlyn Thompson Primary Care Physician [facility]counter [facility] Date(s): 11/08/21 - 12/08/21 [facility] [address] [place] [address]- Allergies, Adverse Reactions, Alerts Substance Reaction Severity [...] day, 0 Refills, Maintenance, 11/06/21 12:44:00 EDT, [place], Partialfill upon patient request if the prescription [...] EDT, EC Capsule, [facility], Partial fill upon patient request if [...]
--- OUTSIDE RECORDS SUMMARY | 2023-10-14 16:55 | XMS_ITS | Continuity of Care Document ---
Author Organization [facility] Address [address] [place] [address]- Care Team Providers Care Fly Finisher Name Role Phone Caitlyn Bowie MD Primary Care Physician Encounter [facility] [place] Date(s): 08/25/21 - 09/24/21 [facility] [address] [place] [address]- Attending Physician: Melissa Morrison Admitting Physician: Melissa [...]
--- OUTSIDE RECORDS SUMMARY | 2023-10-14 16:56 | XMS_ITS | Continuity of Care Document ---
Author Organization [facility] Address [address] [place] [address]- Care Team Providers Care Testing Tech Name Role Phone Caitlyn Bowie MD Primary Care Physician [phone] Encounter [facility] Date(s): 12/13/22 - 01/12/23 [facility] [address] [place], [place] [address] Allergies, Adverse Reactions, Alerts Substance Reaction Severity Status ciprofloxacin Active gentamicin Active penicillin 1 Active morphine Active barium sulfate Active Voltaren Active erythromycin Active vancomycin Active busPIRone Feeling of throat ti ghtness Headache Dizziness Active ipratropium Active sulfa drugs Active iodinated [...] Care Nurse Address: Address: [address] [place] [address]- [place] Name: Toyin Doherty RN Position: [facility] RN Member Role: Primary Care Nurse Name: Eben Hernandez NP Position: [facility] Associate Professional Member Role: Lifetime Consulting Provider Address: Address: [address] [place] [address]- [place] Name: Alejandrina Turner RN Position: [facility] RN Member Role: Primary Care Nurse Name: Zoarida Felix RN Position: [facility] RN Member Role: Primary Care Nurse Name: Daphne Hooker RN Position: [facility] RN Member Role: Primary Care Nurse Name: Nasima Gonzalez RN Position: [facility] RN Supv Member Role: Primary Care Nurse Name: Caitlyn Bowie MD Position: [facility] Physician - Primary Care Member Role: PCP Address: Address: [address] [place] [address]- [place] Name: Kiki Abdi RN Position: [facility] RN Member Role: Primary Care Nurse Name: Marry Reza Position: [facility] RN Member Role: Primary Care Nurse Name: Veronica Hurst [place] Position: [facility] SALLY [place] Member Role: [...] Provider Address: Address: [address] [facility] [place] [address]- [place] Name: Daphne Barton RN Position: [facility] [...] Team Related Persons Name: ZENAIDA FLORES Address: [place], [place] Name: TIA RIVERS Address: [place] [address] Name: JOHANN RETANA Address: [place], [place]
--- OUTSIDE RECORDS SUMMARY | 2023-10-14 16:56 | XMS_ITS | Continuity of Care Document ---
Author Organization [facility] Address [address] [address]- Care Team Providers Care Galley Hand Name Role Phone Caitlyn Bowie MD Primary Care Physician Encounter [facility] Date(s): 01/21/21 - 02/20/21 [facility] [address] [address] Allergies, Adverse Reactions, Alerts Substance [...] times a day, Dr. primo Renee at [place], per pt, # 30 tablet, 0 Refills, [...]
--- OUTSIDE RECORDS SUMMARY | 2023-10-14 16:56 | XMS_ITS | Continuity of Care Document ---
Author Organization [facility] Address [address] [place] [address]- Care Team Providers Care Fruit Shipper Name Role Phone Caitlyn Bowie MD Primary Care Physician [facility]counter [facility] Date(s): 01/06/23 - 02/05/23 [facility] [address] [place], [place] [address] Allergies, Adverse Reactions, Alerts Substance Reaction Severity Status ciprofloxacin Active gentamicin Active barium sulfate Active Voltaren Active erythromycin Active penicillin 1 Active vancomycin Active busPIRone Feeling of throat ti ghtness Headache Dizziness Active ipratropium Active morphine Active sulfa drugs Active iodinated radiocontrast dyes Active Flagyl Active Gastrografin Active Levaquin Avocado Active Zithromax Active Novocain Active Biaxin Active Bee Stings [...] Care Team Personnel Name: Val Wynne Position: [facility] Onco RN Member Role: Primary Care Nurse Name: Karen Pittman RN Position: [facility] RN Member Role: Primary Care Nurse Name: Shilpi Mattson Position: Reference Physician Member Role: Primary Care Nurse Address: Address: [address] [place] [address] Name: Toyin Doherty RN Position: [facility] RN Member Role: Primary Care Nurse Name: Eben Hernandez NP Position: [facility] Associate Professional Member Role: Lifetime Consulting Provider Address: Address: [address] [place] [address]- Name: Alejandrina Turner RN Position: [facility] RN Member Role: Primary Care Nurse Name: Zoraida Felix RN Position: S RN Member Role: Primary Care Nurse Name: Daphne Hooker RN Position: [facility] RN Member Role: Primary Care Nurse Name: Nasima Gonzalez RN Position: [facility] RN Supv Member Role: Primary Care Nurse Name: Caitlyn Bowie MD Position: [facility] Physician - Primary Care Member Role: PCP Address: Address: [address] [place] [address]- Name: Kiki Abdi RN Position: [facility] RN Member Role: Primary Care Nurse Name: Marry Reza Position: [facility] RN Member Role: Primary Care Nurse Name: Veronica Hurst [place] Position: [facility] SALLY [place] Member Role: Lifetime Consulting Physician Name: Maddie Herrera RN Position: [facility] AMB Nurse Member Role: Primary Care Nurse Name: Raegan Baptiste RN Position: [facility] RN Member Role: Primary Care Nurse Name: Svitlana Marcum RN Position: [facility] AMB Nurse Member Role: Primary Care Nurse Name: She Pool Position: [facility] RN Member Role: Primary Care Nurse Name: Kaila Latham RN Position: [facility] RN Member Role: Primary Care Nurse Name: Julio C Bahena Position: [facility] RN Member Role: Primary Care Nurse Name: Nasima Heredia RN Position: [facility] RN Member Role: Primary Care Nurse Name: Katherine Nixon PharmD Position: [facility] Associate Professional Member Role: Lifetime Consulting Provider Address: Address: [address] [place] [address]- Name: Daphne Barton RN Position: [facility] RN Member Role: Primary Care Nurse Name: Katherine Long RN Position: [facility] RN Member Role: Primary Care Nurse Name: Norma Serrano RN Position: [facility] RN Member Role: Primary Care Nurse Name: Seven Kelly RN Position: [facility] RN Member Role: Primary Care Nurse Name: Fani Perez RN Position: [facility] RN Member Role: Primary Care Nurse Name: Hattie Brewster RN Position: [facility] RN Member Role: Primary Care Nurse Name: Yudith Rothman RN Position: [facility] Onco RN Member Role: Primary Care Nurse Name: Kelly Hernandez RN Position: [facility] RN Member Role: Primary Care Nurse Name: Parris Zuluaga RN Position: [facility] RN Member Role: Primary Care Nurse Care Team Related Persons Name: ZENAIDA FLORES Address: [place], [place] Name: TIA RIVERS Address: [place] [address] Name: JOHANN RETANA Address: [place], [place]
--- OUTSIDE RECORDS SUMMARY | 2023-10-14 16:56 | XMS_ITS | Continuity of Care Document ---
Author Organization [facility] ter Address [address] [place] [address]- Care Team Providers Care Gyroscopic Instrument Mechanic Name Role Phone Caitlyn Bowie MD Primary Care Physician [phone] [place] [facility] [place] - 07/04/[address] [address] Discharge Disposition: A-D/C Home Attending Physician: Jose Rafael Zimmerman MD Admitting Physician: Jose Rafael Zimmerman MD Referring Physician: Not on Staff, Referring [...] for... Start Date: 05/07/21 Status: Ordered metoprolol 25 mg oral tablet, extended release 25 mg, XL Tablet, By Mouth, 07/04/21 9:00:00 EST Start Date: 07/04/21 Stop Date: 07/04/21 Status: Completed Metoprolol Succinate ER 25 mg oral tablet, extended release 1 tablet = 25 mg, By Mouth, 2 times a day, 0 Refills, Maintenance, 07/03/21 12:27:00 EST, Partial fill upon patient request if the prescription is for a schedule II opioid drug. Start Date: 07/03/21 Status: Ordered nystatin topical 422226 u/gm powder 1 application, Topically, 3 times [...] Exam Date Time Procedure Performing Provider Status 07/03/21 3:13 AM Chest Portable Richar Myles; Aut h (Verified) Notes: (Chest Portable) Reason For Exam: Cough RESULT: Chest Portable Chest Portable Hx of Present Illness: pt stating she had increased work of breathing this AM and became hypoxic. Needed to use PRN home 02 to maintain sat; Reason: Cough; Clinical Question(s): Other: COMPARISON: None. FINDINGS: LINES AND TUBES: None. LUNGS AND PLEURA: Again demonstrated hyperexpanded lungs compatible with COPD. There are hazy opacities in the right lung predominantly at the upper to mid lung field. Again demonstrated is decreased left lung volume. There are linear opacities at the mid to lower left lung field. There is blunting of the left costophrenic angle compatible with a pleural effusion, less prominent compared to the prior exam. No pneumothorax. HEART, MEDIASTINUM AND PAULIE: Heart is normal in size. Normal upper mediastinal and hilar contour. BONES AND SOFT TISSUES: No acute abnormality. IMPRESSION: 1. Hazy right lung opacity most prominent in the upper to mid lung moreno. Differential considerations include pulmonary edema versus an infectious or inflammatory etiology. 2. Persistent linear opacities in the lower left lung compatible with scarring versus atelectatic change. In addition there is blunting of the left costophrenic angle which may represent a small pleural effusion. WSN: [id number] Ordering Physician: Landen Cee Dictated By: Mackenzie Stratton MD Dictated Date/Time: 07/03/21 8:58 am Reviewed By: Mackenzie Stratton MD Signed By: Mackenzie Stratton MD Signed Date/Time: 07/03/21 8:58 am Transcribed By: MART Transcribed Date/Time: 07/03/21 8:55 am Vital Signs Most recent to oldest [Reference Range]: 1 2 3 Height 160 cm (07/04/21 7:39 AM) 160 cm (07/04/21 5:28 AM) 160 cm (07/03/21 10:39 PM) Weight 57.4 kg (07/03/21 11:47 AM) Oxygen Saturation [94-100 %] 100 % (07/04/21 7:39 AM) 99 % (07/04/21 5:28 AM) 96 % (07/03/21 10:39 PM) Pulse Rate [55-90 bpm] 79 bpm (07/04/21 8:23 AM) 79 bpm (07/04/21 7:39 AM) 67 bpm (07/04/21 5:28 AM) Body Mass Index [18.5-24.99] 22.42 (07/03/21 11:47 AM) Blood Pressure [90-138/55-84 mm Hg] 120/63mm Hg (07/04/21 8:23 AM) 120/63mm Hg (07/04/21 7:39 AM) 109/49mm Hg (07/04/21 5:28 AM) Respiratory Rate [16-30 br/min] 18 br/min (07/04/21 7:39 AM) 22 br/min (07/04/21 5:28 AM) 21 br/min (07/03/21 10:39 PM) Temperature [96.8-100.4 DegF] 98.1 DegF (07/04/21 7:39 AM) 98.7 DegF (07/04/21 5:28 AM) 97.8 DegF (07/03/21 10:39 PM) Liters per Minute 2 L/min (07/03/21 2:05 AM) Mode of Delivery (Oxygen) Room air (07/04/21 7:39 AM) Room air (07/04/21 5:28 AM) Room air (07/03/21 10:39 PM) Blood pressure sites Arm, right (07/04/21 7:39 AM) Arm, right (07/04/21 5:28 AM) Arm, right (07/03/21 10:39 PM) Temperature Route Oral (07/04/21 7:39 AM) Oral (07/04/21 5:28 AM) Oral (07/03/21 10:39 PM) Dry Weight 57.4 kg (07/03/21 11:47 AM) Social History Social History Type Response Smoking Status Never smoker; Tobacc o user in household: No entered on: 04/05/17 Sex
--- OUTSIDE RECORDS SUMMARY | 2023-10-14 16:56 | XMS_ITS | Continuity of Care Document ---
Author Organization [facility] Address [address] [place] [address]- Care Team Providers Care Boston Cutter Name Role Phone Caitlyn Bowie MD Primary Care Physician Encounter [facility] [place] Date(s): 07/18/22 - 12/03/22 [facility] [address] [place] [address] Discharge Disposition: A-D/C Home Attending Physician: Samira STARK(Hem/Onc), Christo Giles Admitting Physician: Samira STARK(Hem/Onc), Christo Giles Referring Physician: Caitlyn Bowie MD Allergies, Adverse Reactions, Alerts Substance Reaction Severity Status ciprofloxacin Active morphine Active barium sulfate Active sulfa drugs Active gentamicin Active erythromycin Active penicillin 1 Active vancomycin Active busPIRone Feeling of throat ti ghtness Headache Dizziness Active ipratropium Active Voltaren Active Gastrografin Active Levaquin Avocado Active iodinated radiocontrast dyes Active Zithromax Active [...] oldest [Reference Range]: 1 Height 159 cm (10/03/22 10:57 AM) Weight 59.1 kg (10/03/22 10:57 AM) Oxygen Saturation [94-100 %] 98 % (10/03/22 10:57 AM) Pulse Rate [55-90 bpm] 95 bpm *H* (10/03/22 10:57 AM) Body Mass Index [18.5-24.99 kg/m2] 23.38 kg/m2 (10/03/22 10:57 AM) Blood Pressure [90-138/55-84 mm Hg] 136/ 71mm Hg (10/03/22 10:57 AM) Temperature [96.8-100.4 DegF] 98.4 DegF (10/03/22 10:57 AM) Blood pressure sites Arm, left (10/03/22 10:57 AM) Temperature Route Temporal (10/03/22 10:57 AM) Dry Weight 59.1 kg (10/03/22 10:57 AM) Weight Obtained Via Standing scale (10/03/22 10:57 AM) Dry Weight Obtained Via Standing scale (10/03/22 10:57 AM) Social History Social History Type [...] Member Role: Primary Care Nurse Address: Address: [address] [place] [address]- Name: Toyin Doherty RN Position: [facility] RN Member Role: Primary Care Nurse Name: Eben Hernandez NP Position: [facility] Associate Professional Member Role: Lifetime Consulting Provider Address: Address: [address] [place] [address]- Name: Alejandrina Turner RN [facility] [...] Primary Care Member Role: PCP Address: Address: [address] [place] [address]- Name: Kiki Abdi RN Position: [facility] RN Member Role: Primary Care Nurse Name: Marry Reza Position: [facility] RN Member Role: Primary Care Nurse Name: Veronica Hurst [place] Position: [facility] JAY Office Staff Member Role: Lifetime Consulting Physician Name: Maddie [...] Care Nurse Name: Katherine Nixon PharmD Position: [facility] Associate Professional Member Role: Lifetime Consulting Provider Address: Address: [address] [place] [address] Name: Daphne Barton RN Position: [facility] [...] Related Persons Name: ZENAIDA FLORES Address: [place], [place] Name: TIA RIVERS Address: [place] [address] Name: JOHANN RETANA Address: home [place], [place]
--- OUTSIDE RECORDS SUMMARY | 2023-10-14 16:56 | XMS_ITS | Continuity of Care Document ---
Author Organization [facility] Address [address] [place] [address]- Care Team Providers Care Strip Cutter Name Role Phone Caitlyn Bowie MD Primary Care Physician Encounter [facility] Date(s): 04/14/22 - 05/14/22 [facility] [address] [place], [place] [address] Allergies, Adverse Reactions, Alerts Substance Reaction Severity Status ciprofloxacin Active gentamicin Active busPIRone Feeling of throat ti ghtness Headache Dizziness Active ipratropium Active morphine Active barium sulfate Active sulfa drugs Active Zithromax Active Flagyl Active erythromycin Active penicillin 1 Active vancomycin Active iodinated radiocontrast dyes Active Voltaren Active [...] days of antibiotics, as prescribed by your conciliation court judge, 0 Refills, Maintenance, 04/14/22 10:18:00 EDT, Tablet, [...] congetsiton, 0 Refills, Maintenance, 11/06/21 12:44:00 EDT, [place], Partial fill upon patient request if the [...] Refills, Maintenance, 11/09/21 9:33:00 EDT, EC Capsule, [facility], Partial fill upon patient request [...] Personnel Name: Caitlyn Bowie MD Address: Address: [address] [place] [id number]
--- OUTSIDE RECORDS SUMMARY | 2023-10-14 16:56 | XMS_ITS | Continuity of Care Document ---
Author Organization [facility] Address [address] [place] [address]- Care Team Providers Care Supervisor Maintenance Name Role Phone Caitlyn Bowie MD Primary Care Physician [place] [facility] [place] 06/11/21 - 07/11/21 [facility] [address] [place] [address]- [place] Allergies, Adverse Reactions, Alerts Substance Reaction [...] Start Date: 07/03/21 Status: Ordered nystatin topical 847509 u/gm powder 1 application, Topically, 3 times [...]
--- OUTSIDE RECORDS SUMMARY | 2023-10-14 16:57 | XMS_ITS | Continuity of Care Document ---
Author Organization [facility] Address [address] [place] [address]- Care Team Providers Care Physics Instructor Name Role Phone Azeb STARK, Caitlny Thompson Primary Care Physician [phone] [place] [facility] [place]): 05/27/21 - 09/24/21 [facility] [address] [place], [place] [address] Attending Physician: Tawana [facility], Caitlyn Whaley Admitting Physician: Tawana [facility], Caitlyn Whaley Referring Physician: T[facility]ana [facility], Caitlyn Whaley Allergies, Adverse Reactions, Alerts Substance Reaction Severity [...]
--- OUTSIDE RECORDS SUMMARY | 2023-10-14 16:57 | XMS_ITS | Continuity of Care Document ---
Author Organization [facility] Address [address] [place] [address]- Care Team Providers Care Health Outreach Worker Name Role Phone Peewee STARK, Sharon Primary Care Physician [place] [facility] [place] 02/20/20 - 03/28/20 [facility] [address] [place] [address]- [facility] Attending Physician: Not on Staff, [...] By Mouth, Daily, Dr. primo Renee at [place], # 30 tablet, 0 Refills, Maintenance, 01/26/18 16:36:23 EDT, ER Tablet Start Date: 01/26/18 Status: Ordered metroNIDAZOLE 500 mg oral tablet 1 tablet = 500 mg, By Mouth, Every 8 hours, may take with food to minimize abdominal discomfort, # 18 tablet, 0 Refills, Maintenance, 09/06/19 14:42:00 EST, Tablet, [facility], 160, cm,09/06/19 7:35:00 EST, [...]
--- OUTSIDE RECORDS SUMMARY | 2023-10-14 16:57 | XMS_ITS | Continuity of Care Document ---
Author Organization [facility] Address [address] [place] [address]- Care Team Providers Care Pasteurizer Helper Name Role Phone Caitlyn Bowie MD Primary Care Physician Encounter [facility] [place] Date(s): 01/25/21 - 02/24/21 [facility] [address] [place] [address]- Allergies, Adverse Reactions, Alerts Substance Reaction Severity [...] times a day, Dr. primo Renee at [place], per pt, # 30 tablet, 0 Refills, [...]
--- OUTSIDE RECORDS SUMMARY | 2023-10-14 16:57 | XMS_ITS | Continuity of Care Document ---
Author Organization [facility] Address [address] [place] [address]- Care Team Providers Care Cpas Name Role Phone Caitlyn Bowie MD Primary Care Physician [phone] Encounter [facility] [place] Date(s): 01/29/21 - 03/17/21 [facility] [address] [place], [place] [address] Attending Physician: Caitlyn Bowie MD [...] Vaccine Date Status Refusal Reason SARS-CoV-2 (COVID-19) mRNA-1271 vaccine 08/06/20 R ecorded Influenza Virus Vaccine [...] 9:04:00 EDT, 03/16/21 9:04:00 EDT, REC Powder, [facility], Partial fill upon patient [...] times a day, Dr. primo Renee at [place], per pt, # 30 tablet, 0 Refills, [...]
--- OUTSIDE RECORDS SUMMARY | 2023-10-14 16:57 | XMS_ITS | Continuity of Care Document ---
Author Organization [facility] Address [address] [place] [address]- Care Team Providers Care Weaver Hand Name Role Phone Caitlyn Bowie MD Primary Care Physician [place] [facility] [place] 04[place]27[place]22 - 05/27/22 [facility] [address] [place] [address]- [place] Allergies, Adverse Reactions, Alerts Substance Reaction [...] predniSONE 10 mg oral tablet See Instructions, 11/5/22 30 mg by mouth for 3 days [...] Care Team Personnel Name: Val Wynne Position: [facility] Onco RN Member Role: Primary Care Nurse Name: Karen Pittman RN Position: [facility] RN Member Role: Primary Care Nurse Name: Sihlpi Mattson Position: Reference Physician Member Role: Primary Care Nurse Address: Address: [address] [place] [address] [address] [place] [address]- Name: Toyin Doherty RN Position: S RN Member Role: Primary Care Nurse Name: Eben Hernandez NP Position: [facility] Associate Professional Member Role: Lifetime Consulting Provider Address: Address: [address] [place] [address]- Name: Alejandrina Turner RN Position: [facility] RN Member Role: Primary Care Nurse Name: Zoraida Felix RN Position: [facility] RN Member Role: Primary Care Nurse Name: Daphne Hooker RN Position: [facility] RN Member Role: Primary Care Nurse Name: Nasima Gonzalez RN Position: [facility] RN Loyda Member Role: Primary Care Nurse Name: Caitlyn Bowie MD Position: [facility] Primary Care Physician Member Role: PCP Address: Address: [address] [place] [address]- Name: Sheeba García Position: [facility] RN Member Role: Primary Care Nurse Name: Kiki Abdi RN Position: [facility] RN Member Role: Primary Care Nurse Name: Marry eRza Position: [facility] RN Member Role: Primary Care Nurse Name: Veronica Hurst [place] Position: [facility] PCO RN Member Role: Lifetime Consulting Physician Name: Maddie Herrera RN Position: [facility] RN Member Role: Primary Care Nurse Name: Raegan Baptiste RN Position: [facility] RN Member Role: Primary Care Nurse Name: Svitlana Marcum RN Position: [facility] AMB Nurse Member Role: Primary Care Nurse Name: She Pool Position: [facility] RN Member Role: Primary Care Nurse Name: Kaila Latham RN Position: [facility] RN Member Role: Primary Care Nurse Name: Julio C Bahena Position: [facility] RN Member Role: Primary Care Nurse Name: Nasima Heredia RN Position: [facility] RN Member Role: Primary Care Nurse Name: Katherine Nixon PharmD Position: [facility] Associate Professional Member Role: Lifetime Consulting Provider Address: Address: [address] [place] [address]- Name: Daphne Barton RN Position: [facility] RN Member Role: Primary Care Nurse Name: Katherine Long RN Position: [facility] RN Member Role: Primary Care Nurse Name: Norma Serrano RN Position: [facility] RN Member Role: Primary Care Nurse Name: Aurea Kelly RN Position: [facility] RN Member Role: Primary Care Nurse Name: Seven Kelly RN Position: [facility] RN Member Role: Primary Care Nurse Name: Fani Perez RN Position: [facility] RN Member Role: Primary Care Nurse Name: Emely Her Position: [facility] RN Member Role: Primary Care Nurse Name: Yudith Rothman RN Position: S RN Member Role: Primary Care Nurse Name: Parris Zuluaga RN Position: S RN Member Role: Primary Care Nurse Care Team Related Persons Name: ZENAIDA FLORES Address: home [address] [place] [address] Name: TIA RIVERS Address: home [address] [place] [address] Name: JOHANN RETANA Address: [place] [address]
--- OUTSIDE RECORDS SUMMARY | 2023-10-14 16:57 | XMS_ITS | Continuity of Care Document ---
Author Organization [facility] ter Address [address] [place] [address]- Care Team Providers Care Counter Pocket Trimmer Name Role Phone Caitlyn Bowie MD Primary Care Physician [place] [facility] [place] 08/08/22 - 09/06/[address] [address] Attending Physician: Rabia STARK, Ashequl Referring Physician: Rabia [...] Role: Primary Care Nurse Address: Address: [address] [place] [address]- [place] Name: Toyin Doherty RN Position: [facility] RN Member Role: Primary Care Nurse Name: Eben Hernandez NP Position: [facility] Associate Professional Member Role: Lifetime Consulting Provider Address: Address: [address] [place] [address]- [place] Name: Alejandrina Turner RN Position: [facility] RN Member Role: Primary Care Nurse Name: Zoraida Felix RN Position: [facility] RN Member Role: Primary Care Nurse Name: Daphne Hooker RN Position: [facility] RN Member Role: Primary Care Nurse Name: Nasima Gonzalez RN Position: [facility] RN Supv Member Role: Primary Care Nurse Name: Caitlyn Bowie MD Position: [facility] Primary Care Physician Member Role: PCP Address: Address: [address] [place] [address]- [place] Name: Sheeba García Position: [facility] RN Member Role: Primary Care Nurse Name: Kiki Abdi RN Position: [facility] RN Member Role: Primary Care Nurse Name: Marry Reza Position: [facility] RN Member Role: Primary Care Nurse Name: Veronica Hurst [place] Position: [facility] PCO RN Member Role: Lifetime Consulting Physician Name: Maddie Herrera RN Position: [facility] RN Member Role: Primary Care Nurse Name: Raegan Baptiste RN Position: [facility] RN Member Role: Primary Care Nurse Name: Svitlana Marcum RN Position: [facility] AMB Nurse Member Role: Primary Care Nurse Name: She Pool Position: [facility] RN Member Role: Primary Care Nurse Name: Kaila Latham RN Position: [facility] RN Member Role: Primary Care Nurse Name: Julio C Bahena Position: [facility] RN Member Role: Primary Care Nurse Name: Nasima Heredia RN Position: [facility] RN Member Role: Primary Care Nurse Name: Katherine Nixon PharmD Position: [facility] Associate Professional Member Role: Lifetime Consulting Provider Address: Address: [address] [place] [address]- [place] Name: Daphne Barton RN Position: [facility] RN Member Role: Primary Care Nurse Name: Katherine Long RN Position: [facility] RN Member Role: Primary Care Nurse Name: Norma Serrano RN Position: [facility] RN Member Role: Primary Care Nurse Name: Seven Kelly RN Position: [facility] RN Member Role: Primary Care Nurse Name: Fani Perez RN Position: [facility] RN Member Role: Primary Care Nurse Name: Hattie Brewster RN Position: [facility] RN Member Role: Primary Care Nurse Name: Yudith Rothman RN Position: [facility] Onco RN Member Role: Primary Care Nurse Name: Kelly Hernandez RN Position: [facility] RN Member Role: Primary Care Nurse Name: Parris Zuluaga RN Position: [facility] RN Member Role: Primary Care Nurse Care Team Related Persons Name: ZENAIDA FLORES Address: [place] [address] Name: TIA RIVERS Address: [address] [address] Name: JOHANN RETANA Address: [place] [address]
--- OUTSIDE RECORDS SUMMARY | 2023-10-14 16:57 | XMS_ITS | Continuity of Care Document ---
Author Organization [facility] Address [address] [place] [address]- Care Team Providers Care Water/Wastewater Project Manager Name Role Phone Caitlyn Bowie MD Primary Care Physician [place] [facility] [place] Date(s): 03/08/21 - 05/27/21 [facility] [address] [place] [id number] Attending Physician: Mick Newsome MD Admitting Physician: Mick Newsome MD Allergies, Adverse Reactions, Alerts Substance Reaction [...] Vaccine Date Status Refusal Reason SARS-CoV-2 (COVID-19) mRNA-1279 vaccine 08/06/20 R ecorded Influenza Virus Vaccine [...]
--- OUTSIDE RECORDS SUMMARY | 2023-10-14 16:57 | XMS_ITS | Continuity of Care Document ---
Author Organization [facility] Address [address] [place] [address]- Care Team Providers Care Packing Machine Can Feeder Name Role Phone Caitlyn Bowie MD Primary Care Physician [phone] Encounter [facility] Date(s): 11/16/22 - 12/16/22 [facility] [address] [place], [place] [address] Allergies, Adverse Reactions, Alerts Substance [...] Role: Primary Care Nurse Address: Address: [address] [place] [address]- Name: Toyin Doherty RN Position: S RN Member Role: Primary Care Nurse Name: Eben Hernandez NP Position: [facility] Associate Professional Member Role: Lifetime Consulting Provider Address: Address: [address] [place] [address]- Name: Alejandrina Turner RN Position: [facility] RN Member Role: Primary Care Nurse Name: Zoraida Felix RN Position: [facility] RN Member Role: Primary Care Nurse Name: Daphne Hooker RN Position: [facility] RN Member Role: Primary Care Nurse Name: Nasima Gonzalez RN Position: [facility] RN Supv Member Role: Primary Care Nurse Name: Caitlyn Bowie MD Position: [facility] Physician - Primary Care Member Role: PCP Address: Address: [address] [place] [address]- [place] Name: Kiki Abdi RN Position: [facility] RN Member Role: Primary Care Nurse Name: Marry Reza Position: [facility] RN Member Role: Primary Care Nurse Name: Veronica Hurst [place] Position: [facility] S[place] Member Role: Lifetime Consulting Physician Name: Maddie Herrera RN Position: [facility] AMB [...] Care Nurse Name: Katherine Nixon PharmD Position: [facility] Associate Professional Member Role: Lifetime Consulting Provider Address: Address: [address] [place] [address]- [place] Name: Daphne Barton RN [facility]: [facility] [...] Team Related Persons Name: ZENAIDA FLORES Address: [place] [address] Name: TIA RIVERS Address: [place] [address] Name: JOHANN RETANA Address: [place] [address]
--- OUTSIDE RECORDS SUMMARY | 2023-10-14 16:57 | XMS_ITS | Continuity of Care Document ---
Author Organization [facility] Address [address] [place] [address]- Care Team Providers Care Junction Maker Name Role Phone Caitlyn Bowie MD Primary Care Physician [facility]10/22 - 06/09/22 [facility] [address] [place], [place] [address] Allergies, Adverse Reactions, Alerts [...] 0 Refills, Maintenance, 05/19/22 11:45:00 EST, [facility], Partial fill upon patient request [...] Role: Primary Care Nurse Address: Address: [address] [place] [address] [address] [place] [address]- [place] Name: Toyin Doherty RN Position: [facility] RN Member Role: Primary Care Nurse Name: Eben Hernandez NP Position: [facility] Associate Professional Member Role: Lifetime Consulting Provider Address: Address: [address] [place] [address]- Name: Alejandrina Turner RN [facility] Care Physician Member Role: PCP Address: Address: [address] [place] [address]- [place] Name: Sheeba García Position: [facility] RN Member [...] Latham RN Position: [facility] ED RN W/OE and Tasks Member Role: Primary Care Nurse Name: Julio C Bahena Position: [facility] RN Member Role: Primary Care Nurse Name: Nasima Heredia RN Position: [facility] RN Member Role: Primary Care Nurse Name: Katherine Nixon PharmD Position: [facility] Associate Professional Member Role: Lifetime Consulting Provider Address: Address: [address] [place] [address]- Name: Daphne [place] RN Position: [facility] RN Member Role: Primary Care Nurse Name: Katherine Long RN Position: [facility] RN Member Role: Primary Care Nurse Name: Norma Serrano RN Position: [facility] RN Member Role: Primary Care Nurse Name: Aurea Kelly RN Position: [facility] RN Member Role: Primary Care Nurse Name: Seven Kelly RN Position: [facility] RN Member Role: Primary Care Nurse Name: Fani Perez RN Position: [facility] RN Member Role: Primary Care Nurse Name: Emely Her Position: [facility] RN Member Role: Primary Care Nurse Name: Yudith Rothman RN Position: [facility] RN Member Role: Primary Care Nurse Name: Parris Zuluaga RN Position: [facility] RN Member Role: Primary Care Nurse Care Team Related Persons Name: ZENAIDA FLORES Address: home [address] [place] [address] Name: TIA RIVERS Address: home [address] [place] [address] Name: JOHANN RETANA Address: [place] [address]
--- OUTSIDE RECORDS SUMMARY | 2023-10-14 16:57 | XMS_ITS | Continuity of Care Document ---
Author Organization [facility] ter Address [address] [place] [address]- Care Team Providers Care Director Of Curriculum Name Role Phone Peewee STARK, Sharon Primary Care Physician [place] [facility] [place](s[place] 08/29/19 - 08/29/[address] [address]- [facility] Attending Physician: Not on Staff, Attending [...] By Mouth, Daily, Dr. primo Renee at [place], # 30 tablet, 0 Refills, Maintenance, 01/26/18 [...]
--- OUTSIDE RECORDS SUMMARY | 2023-10-14 16:58 | XMS_ITS | Continuity of Care Document ---
Author Organization [facility] ter Address [address] [place] [address]- Care Team Providers Care Post Commander Name Role Phone Brennan Burnett MD Primary Care Physician Encounter [facility] Date(s): 09/30/20 - 09/30/[address] [address]- Encounter Diagnosis COPD exacerbation(Final) - 09/30/20 Discharge Disposition: A-D/C Home Attending Physician: Tremaine Hopper DO Admitting Physician: Tremaine Hopper DO Referring Physician: Not on Staff, Referring [...] Exam Date Time Procedure Performing Provider Status 09/30/20 3:54 PM Chest 2 Views Frontal and Lat Vera , Risa; Auth (Verified) Notes: (Chest 2 Views Frontal and Lat) Reason For Exam: Chest Pain;Other: RESULT: Chest 2 Views Frontal and Lat Chest 2 Views Frontal and Lat INDICATION: Exertional dyspnea, bilateral lower extremity edema, chest pain for one month COMPARISON: CT chest 09/16/2020; chest x-ray 01/26/2020 FINDINGS: LINES AND TUBES: None. LUNGS AND PLEURA: Right lung is clear. No right pleural effusion. Unchanged small left pleural effusion with compressive atelectasis. Left midlung linear atelectasis. No pneumothorax. HEART, MEDIASTINUM AND PAULIE: Heart is normal in size. Normal upper mediastinal and hilar contour. BONES AND SOFT TISSUES: No acute abnormality. Abdominal aortic calcifications. IMPRESSION: Unchanged small left pleural effusion. I have personally reviewed the images and I agree with this report. WSN: [id number] Ordering Physician: Vamsi Brown Dictated By: Jimmy Simons DO Dictated Date/Time: 09/30/20 4:00 pm Reviewed By: Andre Damon MD Signed By: Andre Damon MD Signed Date/Time: 09/30/20 4:05 pm Transcribed By: MART Transcribed Date/Time: 09/30/20 3:59 pm Vital Signs Most recent to oldest [Reference Range]: 1 2 3 Weight 60 kg (09/30/20 9:35 PM) 60 kg (09/30/20 8:07 PM) 60 kg (09/30/20 3:05 PM) Oxygen Saturation [94-100 %] 98 % (09/30/20 9:35 PM) 99 % (09/30/20 8:07 PM) 100 % (09/30/20 5:28 PM) Pulse Rate [55-90 bpm] 81 bpm (09/30/20 9:35 PM) 88 bpm (09/30/20 8:07 PM) 91 bpm *H* (09/30/20 5:28 PM) Blood Pressure [90-138/55-84 mm Hg] 133/81mm Hg (09/30/20 9:35 PM) 132/61mm Hg (09/30/20 8:07 PM) 156/92mm Hg *H* (09/30/20 5:28 PM) Respiratory Rate [16-30 br/min] 16 br/min (09/30/20 9:35 PM) 16 br/min (09/30/20 8:07 PM) 16 br/min (09/30/20 5:28 PM) Temperature [96.8-100.4 DegF] 99.1 DegF (09/30/20 3:05 PM) Mode of Delivery (Oxygen) Room air (09/30/20 9:35 PM) Room air (09/30/20 8:07 PM) Room air (09/30/20 5:28 PM) Blood pressure sites Arm, left (09/30/20 9:35 PM) Arm, left (09/30/20 8:07 PM) Temperature Route Oral (09/30/20 3:05 PM) Dry Weight 60 kg (09/30/20 9:35 PM) 60 kg (09/30/20 8:07 PM) 60 kg (09/30/20 3:05 PM) Social History Social History Type Response Smoking Status Never smoker; Tobacc o user in household: No entered on: 04/05/17 Sex
--- OUTSIDE RECORDS SUMMARY | 2023-10-14 16:58 | XMS_ITS | Continuity of Care Document ---
Author Organization [facility] Address [address] [place] [address]- Care Team Providers Care Dock Pumper Name Role Phone Caitlyn Bowie MD Primary Care Physician [facility](s): 11/17/22 - 12/17/22 [facility] [address] [place], [place] [address] Allergies, Adverse [...] Care Team Personnel Name: Val Wynne Position: [facility] Onco RN Member Role: Primary Care Nurse Name: Karen Pittman RN Position: S RN Member Role: Primary Care Nurse Name: Shilpi Mattson Position: Reference Physician Member Role: Primary Care Nurse Address: Address: [address] [place] [address]- Name: Toyin Doherty RN Position: S RN Member Role: Primary Care Nurse Name: Eben Hernandez NP Position: [facility] Associate Professional Member Role: Lifetime Consulting Provider Address: Address: [address] [place] [address]- Name: Alejandrina Turner RN Position: [facility] RN Member Role: Primary Care Nurse Name: Zoraida Felix RN Position: [facility] RN Member Role: Primary Care Nurse Name: Daphne Hooker RN Position: [facility] RN Member Role: Primary Care Nurse Name: Nasima Gonzalez RN Position: [facility] RN Supv Member Role: Primary Care Nurse Name: Caitlyn Bowie MD Position: [facility] Physician - Primary Care Member Role: PCP Address: Address: [address] [place] [address]- [place] Name: Kiki Abdi RN Position: [facility] RN Member Role: Primary Care Nurse Name: Marry Reza Position: [facility] RN Member Role: Primary Care Nurse Name: Veronica Hurst MA Position: [facility] SALLY MA Member Role: Lifetime Consulting Physician Name: Maddie Herrera RN Position: [facility] AMB Nurse Member Role: Primary Care Nurse Name: Raegan Baptiste RN Position: [facility] RN Member Role: Primary Care Nurse Name: Svitlana Marcum RN Position: [facility] AMB Nurse Member Role: Primary Care Nurse Name: She Pool Position: [facility] RN Member Role: Primary Care Nurse Name: Kaila Latham RN Position: [facility] RN Member Role: Primary Care Nurse Name: Julio C Bahena Position: [facility] RN Member Role: Primary Care Nurse Name: Nasima Heredia RN Position: [facility] RN Member Role: Primary Care Nurse Name: Katherine Nixon PharmD Position: [facility] Associate Professional Member Role: Lifetime Consulting Provider Address: Address: [address] [place] [address]- [place] Name: Daphne [place] RN Position: [facility] RN Member Role: Primary Care Nurse Name: Katherine Long RN Position: [facility] RN Member Role: Primary Care Nurse Name: Norma Serrano RN Position: [facility] RN Member Role: Primary Care Nurse Name: Seven Kelly RN Position: [facility] RN Member Role: Primary Care Nurse Name: Fani Perez RN Position: [facility] RN Member Role: Primary Care Nurse Name: Hattie Brewster RN Position: [facility] RN Member Role: Primary Care Nurse Name: Yudith Rothman RN Position: [facility] Onco RN Member Role: Primary Care Nurse Name: Kelly Hernandez RN Position: [facility] RN Member Role: Primary Care Nurse Name: Parris Zuluaga RN Position: [facility] RN Member Role: Primary Care Nurse Care Team Related Persons Name: ZENAIDA FLORES Address: [place] [address] Name: TIA RIVERS Address: [place] [address] Name: JOHANN RETANA Address: [place] [address]
--- OUTSIDE RECORDS SUMMARY | 2023-10-14 16:58 | XMS_ITS | Continuity of Care Document ---
Author Organization [facility] Address [address] [place] [address]- Care Team Providers Care Tow Car Driver Name Role Phone Azeb STARK, Caitlyn Thompson Primary Care Physician [facility](s): 09/13/22 - 10/13/22 [facility] [address] [place] [address]- Allergies, Adverse Reactions, Alerts Substance Reaction Severity [...] Member Role: Primary Care Nurse Address: Address: [address] [place] [address] [address] [place] [address]- [place] Name: Toyin Doherty RN Position: [facility] RN Member Role: Primary Care Nurse Name: Eben Hernandez NP Position: [facility] Associate Professional Member Role: Lifetime Consulting Provider Address: Address: [address] [place] [address]- Name: Alejandrina Turner RN [facility] [...] Care Physician Member Role: PCP Address: Address: [address] [place] [address]- Name: Sheeba García Position: [facility] [...] Role: Lifetime Consulting Provider Address: Address: [address] [place] [address] Name: Daphne [place] RN Position: [facility] [...] Related Persons Name: ZENAIDA FLORES Address: [place], [place] Name: TIA RIVERS Address: [address] [address] Name: JOHANN RETANA Address: [place] [address]
--- OUTSIDE RECORDS SUMMARY | 2023-10-14 16:58 | XMS_ITS | Continuity of Care Document ---
Author Organization [facility] Address [address] [place] [address]- Care Team Providers Care Wood Veneer Taper Name Role Phone Azeb STARK, Caitlyn Thompson Primary Care Physician [facility] Date(s): 02/14/22 - 03/16/22 [facility] [address] [place] [address]- Allergies, Adverse Reactions, Alerts Substance Reaction Severity [...] day, 0 Refills, Maintenance, 11/06/21 12:44:00 EDT, [place], Partialfill upon patient request if the prescription [...] 03/08/23 13:25:00 EDT, 03/08/22 13:24:00 EDT, Solution, [facility], do not fill unless pt calls., 5 mL Topically 3 ti... Start Date: 03/08/22 Stop Date: 03/08/23 Status: Ordered meclizine 25 mg oral tablet See Instructions, PRN as needed for dizziness, can take extra 25mg for up to four per day, # 60 tablet, 4 Refills, Physician Stop, 09/30/21 13:21:00 EDT, [facility], 160, cm, 09/24/21 16:15:00 EDT, Height, 57.5, kg, 09/24/21 1:23:00 EDT... Start Date: 09/30/21 Status: Ordered omeprazole 40 mg oral enteric coated capsule 1 capsule = 40 mg, By Mouth, Daily, # 5 capsule, 0 Refills, Maintenance, 11/09/21 9:33:00 EDT, EC Capsule, [facility], Partial fill upon patient request [...] Team Personnel Name: Caitlyn Bowie MD Address: [address] [place] [address]
--- OUTSIDE RECORDS SUMMARY | 2023-10-14 16:58 | XMS_ITS | Continuity of Care Document ---
Author Organization [facility] Address [address] [place] [address]- Care Team Providers Care Log Snaker Name Role Phone Brennan Burnett MD Primary Care Physician Encounter [facility] Date(s): 09/28/20 - 10/28/20 [facility] [address] [place] [address] Allergies, Adverse Reactions, Alerts Substance Reaction Severity [...] By Mouth, Daily, Dr. primo Renee at [place], # 30 tablet, 0 Refills, Maintenance, 01/26/18 [...]
--- OUTSIDE RECORDS SUMMARY | 2023-10-14 16:58 | XMS_ITS | Continuity of Care Document ---
Author Organization [facility] Address [address] [place] [address]- Care Team Providers Care Mail Handler Equipment Operator Name Role Phone Caitlyn Bowie MD Primary Care Physician [phone] [facility] Date(s): 05/09/23 - 06/08/23 [facility] [address] [place], [place] [address] Allergies, Adverse Reactions, Alerts Substance Reaction Severity Status ciprofloxacin Active clindamycin throat tightening Active vancomycin Active busPIRone Feeling of throat ti ghtness Headache Dizziness Active barium sulfate Active iodinated radiocontrast dyes Active Voltaren Active Zithromax Active Flagyl Active gentamicin Active erythromycin Active penicillin 1 Active ipratropium Active morphine Active sulfa drugs Active Biaxin Active Novocain Active Gastrografin Active [...] Care Nurse Name: Karen Pittman RN Position: [facility] RN Member Role: Primary Care Nurse Name: Shilpi Mattson Position: Reference Physician Member Role: Primary Care Nurse Address: Address: [address] [place] [address]- [place] Name: Toyin Doherty RN Position: [facility] RN Member Role: Primary Care Nurse Name: Eben Hernandez NP Position: [facility] Associate Professional Member Role: Lifetime Consulting Provider Address: Address: [address] [place] [address]- [place] Name: Alejandrina Turner RN Position: [facility] RN Member Role: Primary Care Nurse Name: Zoraida Felix RN Position: [facility] ED RN W/OE and Tasks Member Role: Primary Care Nurse Name: Daphne Hooker RN Position: [facility] RN Member Role: Primary Care Nurse Name: Nasima Gonzalez RN Position: [facility] RN Supv Member Role: Primary Care Nurse Name: Caitlyn Bowie MD Position: [facility] Physician - Primary Care Member Role: PCP Address: Address: [address] [place] [address]- [place] Name: Kiki Abdi RN Position: [facility] RN Member Role: Primary Care Nurse Name: Marry Reza Position: S RN Member Role: Primary Care Nurse Name: Veronica Hurst [place] Position: [facility] SALLY JORGENSEN Member Role: Lifetime Consulting Physician Name: Yudith Ruiz RN Position: [facility] Onco RN Member Role: Primary Care Nurse Name: Maddie Herrera RN Position: [facility] AMB Nurse Member Role: Primary Care Nurse Name: Raegan Baptiste RN Position: [facility] RN Member Role: Primary Care Nurse Name: She Pool Position: [facility] RN Member Role: Primary Care Nurse Name: aKila Latham RN Position: [facility] RN Member Role: Primary Care Nurse Name: Julio C Bahena Position: [facility] RN Member Role: Primary Care Nurse Name: Nasima Heredia RN Position: [facility] ED RN W/OE and Tasks Member Role: Primary Care Nurse Name: Katherine Nixon PharmD Position: [facility] Associate Professional Member Role: Lifetime Consulting Provider Address: Address: [address] [place] [address] Name: Daphne [place] RN Position: [facility] RN Member Role: Primary Care Nurse Name: Katherine Long RN Position: [facility] RN Member Role: Primary Care Nurse Name: Norma Serrano RN Position: [facility] RN Member Role: Primary Care Nurse Name: Seven Kelly RN Position: [facility] RN Member Role: Primary Care Nurse Name: Fani Perez RN Position: [facility] RN Member Role: Primary Care Nurse Name: Hattie Brewster RN Position: [facility] RN Member Role: Primary Care Nurse Name: Kelly Hernandez RN Position: [facility] RN Member Role: Primary Care Nurse Name: Pallavi Wylie LPN Position: [facility] RN Member Role: Primary Care Nurse Name: Parris Zuluaga RN Position: [facility] RN Member Role: Primary Care Nurse Care Team Related Persons Name: ZENAIDA FLORES Address: [place] [address] Name: TIA RIVERS Address: [place] [address] Name: JOHANN RETANA Address: [place] [address]
--- OUTSIDE RECORDS SUMMARY | 2023-10-14 16:58 | XMS_ITS | Continuity of Care Document ---
Author Organization [facility] Address [address] [place] [address]- Care Team Providers Care Sweetbread Trimmer Name Role Phone Caitlyn Bowie MD Primary Care Physician Encounter [facility] Date(s): 01/29/21 - 02/28/21 [facility] [address] [place], [place] [address] Allergies, Adverse Reactions, [...] times a day, Dr. primo Renee at [place], per pt, # 30 tablet, 0 Refills, [...]
--- OUTSIDE RECORDS SUMMARY | 2023-10-14 16:58 | XMS_ITS | Continuity of Care Document ---
Author Organization [facility] Address [address] [place] [address]- Care Team Providers Care Soccer Referee Name Role Phone Azeb STARK, Caitlyn Thompson Primary Care Physician [facility](s): 12/23/21 - 01/22/22 [facility] [address] [place] [address]- Allergies, Adverse Reactions, Alerts Substance Reaction Severity [...] day, 0 Refills, Maintenance, 11/06/21 12:44:00 EDT, [place], Partialfill upon patient request if the prescription [...] Refills, Maintenance, 11/09/21 9:33:00 EDT, EC Capsule, [facility], Partial fill upon [...]
--- OUTSIDE RECORDS SUMMARY | 2023-10-14 16:59 | XMS_ITS | Continuity of Care Document ---
Author Organization [facility] Address [address] [address]- Care Team Providers Care Patrol Mother Name Role Phone Brennan Burnett MD Primary Care Physician [facility] Date(s): 06/29/20 - 07/29/20 [facility] [address] [place] [address] Referring Physician: Marla Monteiro Allergies, Adverse Reactions, Alerts Substance Reaction Severity [...] By Mouth, Daily, Dr. primo Renee at [place], # 30 tablet, 0 Refills, Maintenance, 01/26/18 [...]
--- OUTSIDE RECORDS SUMMARY | 2023-10-14 16:59 | XMS_ITS | Continuity of Care Document ---
Author Organization [facility] Address [address] [place] [address]- Care Team Providers Care C D Area Supervisor Name Role Phone Caitlyn Bowie MD Primary Care Physician [facility] Date(s): 04/11/22 - 05/11/22 [facility] [address] [place] [address]- Allergies, Adverse Reactions, Alerts Substance Reaction Severity [...] days of antibiotics, as prescribed by your doll eye setter, 0 Refills, Maintenance, 04/14/22 10:18:00 EDT, Tablet, [...] congetsiton, 0 Refills, Maintenance, 11/06/21 12:44:00 EDT, [place], Partial fill upon patient request if the [...] Refills, Maintenance, 11/09/21 9:33:00 EDT, EC Capsule, [facility], Partial fill upon patient [...] Personnel Name: Caitlyn Bowie MD Address: Address: [address] [place] [address]
--- OUTSIDE RECORDS SUMMARY | 2023-10-14 16:59 | XMS_ITS | Continuity of Care Document ---
Author Organization [facility] Address [address] [place] [address]- Care Team Providers Care Shoe Associate Name Role Phone Brennan Burnett MD Primary Care Physician [phone] Encounter [facility] Date(s): 10/19/20 - 11/18/20 [facility] [address] [place] [address]- Allergies, Adverse Reactions, Alerts Substance Reaction Severity [...] By Mouth, Daily, Dr. primo Renee at [place], # 30 tablet, 0 Refills, Maintenance, 01/26/18 [...]
--- OUTSIDE RECORDS SUMMARY | 2023-10-14 16:59 | XMS_ITS | Continuity of Care Document ---
Author Organization [facility] Address [address] [place] [address]- Care Team Providers Care Form Setter Supervisor Name Role Phone Caitlyn Bowie MD Primary Care Physician Encounter [facility] Date(s): 02/03/21 - 03/05/21 [facility] [address] [place] [address]- Allergies, Adverse Reactions, Alerts Substance Reaction Severity [...] times a day, Dr. primo Renee at [place], per pt, # 30 tablet, 0 Refills, [...]
--- OUTSIDE RECORDS SUMMARY | 2023-10-14 16:59 | XMS_ITS | Continuity of Care Document ---
Author Organization [facility] Address [address] [place] [address]- Care Team Providers Care Coal Deliverer Name Role Phone Caitlyn Bowie MD Primary Care Physician [facility] Date(s): 09/27/21 - 10/27/21 [facility] [address] [place], [place] [address] Allergies, Adverse Reactions, [...]
--- OUTSIDE RECORDS SUMMARY | 2023-10-14 16:59 | XMS_ITS | Continuity of Care Document ---
Author Organization [facility] Address [address] [place] [address]- Care Team Providers Care Shift Boss Name Role Phone Caitlyn Bowie MD Primary Care Physician [phone] [facility]counter [facility] Date(s): 02/22/21 - 03/24/21 [facility] [address] [address] Allergies, Adverse Reactions, Alerts Substance [...] times a day, Dr. primo Renee at [place], per pt, # 30 tablet, 0 Refills, [...]
--- OUTSIDE RECORDS SUMMARY | 2023-10-14 16:59 | XMS_ITS | Continuity of Care Document ---
Author Organization [facility] Address [address] [place] [address]- Care Team Providers Care Senior Administrative Support Name Role Phone Azeb STARK, Caitlyn Thompson Primary Care Physician [phone] Encounter [facility] Date(s): 12/22/21 - 01/21/22 [facility] [address] [place] [address]- Allergies, Adverse Reactions, Alerts Substance Reaction Severity [...] day, 0 Refills, Maintenance, 11/06/21 12:44:00 EDT, [place], Partialfill upon patient request if the prescription [...] Maintenance, 11/09/21 9:33:00 EDT, EC Capsule, [facility], Partial fill upon patient request [...]
--- OUTSIDE RECORDS SUMMARY | 2023-10-14 16:59 | XMS_ITS | Continuity of Care Document ---
Author Organization [facility] Address [address] [place] [address]- Care Team Providers Care Molding Machine Tender Name Role Phone Sharon Vides MD Primary Care Physician ( [phone] Encounter [facility] Date(s): 06/12/19 - 06/19/19 [facility] [address] [place] [address]- [facility] Attending Physician: Cristofer Spivey MD Admitting Physician: Cristofer Spivey MD Referring Physician: Sharon Vides MD Allergies, [...] By Mouth, Daily, Dr. primo Renee at [place], # 30 tablet, 0 Refills, Maintenance, 01/26/18 [...] oldest [Reference Range]: 1 Height 160 cm (06/12/19 2:38 PM) Weight 59.87 kg (06/12/19 2:38 PM) Body Mass Index [18.5-24.99] 23.39 (06/12/19 2:38 PM) Blood Pressure [90-138/55-84 mm Hg] 126/ 66mm Hg (06/12/19 2:38 PM) Blood pressure sites Arm, right (06/12/19 2:38 PM) Weight Obtained Via Patient/family state d (06/12/19 2:38 PM) Social History Social History Type Response Smoking Status Never smoker; Tobacc o user in household: No entered on: 04/05/17 Sex Female
--- OUTSIDE RECORDS SUMMARY | 2023-10-14 16:59 | XMS_ITS | Continuity of Care Document ---
Author Organization [facility] Address [address] [place] [address]- Care Team Providers Care Bad Credit Collector Name Role Phone Caitlyn Bowie MD Primary Care Physician [phone] [place] [facility] Date(s): 10/08/21 - 12/09/21 [facility] [address] [place] [address]- Attending Physician: Anish Neil MD Admitting Physician: [...] day, 0 Refills, Maintenance, 11/06/21 12:44:00 EDT, [place], Partialfill upon patient request if the prescription [...] Refills, Maintenance, 11/09/21 9:33:00 EDT, EC Capsule, [facility], Partial fill upon patient request if [...]
--- OUTSIDE RECORDS SUMMARY | 2023-10-14 16:59 | XMS_ITS | Continuity of Care Document ---
Author Organization [facility] Address [address] [place] [address]- Care Team Providers Care Table Assembler Metal Name Role Phone Sharon Vides MD Primary Care Physician ( [phone] Encounter [facility] Date(s): 06/26/19 - 07/03/19 [facility] [address] [place] [address] Attending Physician: Cristofer Spivey MD Admitting Physician: [...] By Mouth, Daily, Dr. primo Renee at [place], # 30 tablet, 0 Refills, Maintenance, 01/26/18 [...]
--- OUTSIDE RECORDS SUMMARY | 2023-10-14 16:59 | XMS_ITS | Continuity of Care Document ---
Author Organization [facility] Address [address] [place] [address]- Care Team Providers Care Fourchette Sewer Name Role Phone Azeb STARK, Caitlyn Thompson Primary Care Physician Encounter [facility] Date(s): 12/29/21 - 01/28/22 [facility] [address] [place], [place] [address] Allergies, Adverse Reactions, Alerts Substance [...] day, 0 Refills, Maintenance, 11/06/21 12:44:00 EDT, [place], Partialfill upon patient request if the prescription [...] Refills, Maintenance, 11/09/21 9:33:00 EDT, EC Capsule, [facility], Partial fill upon patient [...]
--- OUTSIDE RECORDS SUMMARY | 2023-10-14 16:59 | XMS_ITS | Continuity of Care Document ---
Author Organization [facility] Address [address] [place] [address] lidia, [address] [place] [address]- Care Team Providers Care Biodiesel Product Manager Name Role Phone Caitlyn Bowie MD Primary Care Physician [phone] Encounter [facility] Date(s): 07/12/21 - 08/11/21 [facility] [address] [place] [address] Drive, [address] [place], [place] [address] Allergies, Adverse Reactions, Alerts Substance Reaction Severity Status ciprofloxacin Active penicillin 1 Active barium sulfate Active iodinated radiocontrast dyes Active Voltaren Active Zithromax Active Flagyl Active gentamicin Active erythromycin Active vancomycin Active busPIRone Feeling of throat ti ghtness Headache Dizziness Active ipratropium Active morphine Active sulfa drugs Active Gastrografin Active Levaquin Avocado Active Avelox Active Novocain Active Biaxin Active Bee Stings [...] vaccine, inactivated 04/16/17 Give n SARS-CoV-2 (COVID-19) mRNA-1276 vaccine 08/06/20 R ecorded [...]
--- OUTSIDE RECORDS SUMMARY | 2023-10-14 16:59 | XMS_ITS | Continuity of Care Document ---
Author Organization [facility] Address [address] [place] [address]- Care Team Providers Care Marine Diver Name Role Phone Caitlyn Bowie MD Primary Care Physician [phone] Encounter [facility] Date(s): 02/02/21 - 03/20/21 [facility] [address] [place] [address]- Attending Physician: Anish Neil MD Admitting Physician: Anish Neil MD Referring Physician: Brennan Burnett MD Allergies, [...] 9:04:00 EDT, 03/16/21 9:04:00 EDT, REC Powder, [facility], Partial fill upon patient request [...] times a day, Dr. primo Renee at [place], per pt, # 30 tablet, 0 Refills, [...]
--- OUTSIDE RECORDS SUMMARY | 2023-10-14 16:59 | XMS_ITS | Continuity of Care Document ---
Author Organization [facility] Address [address] [place] [address]- Care Team Providers Care Street Cleaning Equipment Operator Name Role Phone zAeb STARK, Caitlyn Thompson Primary Care Physician Encounter [facility] Date(s): 07/18/22 - 08/17/22 [facility] [address] [place] [address]- Allergies, Adverse Reactions, Alerts Substance Reaction Severity Status ciprofloxacin Active barium sulfate Active iodinated radiocontrast dyes Active Voltaren Active Zithromax Active gentamicin Active erythromycin Active penicillin 1 Active vancomycin Active busPIRone Feeling of throat ti ghtness Headache Dizziness Active ipratropium Active morphine Active sulfa drugs Active Novocain Active Gastrografin Active Levaquin Avocado Active Flagyl Active Biaxin Active Avelox Active Bee Stings Active Contrast Dye Active Shrimp Active Avocado Active Mold Active 1Allergy testing doen 09/26 [...] Care Team Personnel Name: Lauren Wynnericia Position: [facility] Onco RN Member Role: Primary Care Nurse Name: Karen Pittman RN Position: [facility] RN Member Role: Primary Care Nurse Name: Shilpi Mattson Position: Reference Physician Member Role: Primary Care Nurse Address: Address: [address] [place] [address] [address] [place] [address]- [place] Name: Toyin Doherty RN Position: [facility] RN Member Role: Primary Care Nurse Name: Eben Hernandez NP Position: [facility] Associate Professional Member Role: Lifetime Consulting Provider Address: Address: [address] [place] [address]- Name: Alejandrina Turner RN Position: [facility] RN Member Role: Primary Care Nurse Name: Zoraida Felix RN Position: [facility] RN Member Role: Primary Care Nurse Name: Daphne Hooker RN Position: [facility] RN Member Role: Primary Care Nurse Name: Nasima Gonzalez RN Position: [facility] RN Supv Member Role: Primary Care Nurse Name: Caitlyn Bowie MD Position: [facility] Primary Care Physician Member Role: PCP Address: Address: [address] [place] [address]- Name: Sheeba García Position: [facility] RN Member Role: Primary Care Nurse Name: Kiki Abdi RN Position: [facility] RN Member Role: Primary Care Nurse Name: Marry Reza Position: [facility] RN Member Role: Primary Care Nurse Name: Veronica Hurst [place] Position: [facility] PCO RN Member Role: Lifetime Consulting Physician Name: Maddie Herrera RN Position: [facility] RN Member Role: Primary Care Nurse Name: Raegan Baptiste RN Position: [facility] RN Member Role: Primary Care Nurse Name: Svitlana Marcum RN Position: [facility] AMB Nurse Member Role: Primary Care Nurse Name: She Pool Position: [facility] RN Member Role: Primary Care Nurse Name: Kaila Latham RN Position: [facility] MADELINE RN W/OE and Tasks Member Role: Primary Care Nurse Name: Jluio C Bahena Position: [facility] RN Member Role: Primary Care Nurse Name: Nasima Heredia RN Position: [facility] RN Member Role: Primary Care Nurse Name: Katherine Nixon PharmD Position: [facility] Associate Professional Member Role: Lifetime Consulting Provider Address: Address: [address] [place] [address] Name: Daphne Barton RN Position: [facility] RN Member Role: Primary Care Nurse Name: Katherine Long RN Position: [facility] RN Member Role: Primary Care Nurse Name: Norma Serrano RN Position: [facility] RN Member Role: Primary Care Nurse Name: Seven Kelly RN Position: [facility] RN Member Role: Primary Care Nurse Name: Fani Perez RN Position: [facility] RN Member Role: Primary Care Nurse Name: Hattie Brewster RN Position: [facility] RN Member Role: Primary Care Nurse Name: Yudith Rothman RN Position: [facility] RN Member Role: Primary Care Nurse Name: Kelly Hernandez RN Position: [facility] RN Member Role: Primary Care Nurse Name: Parris Zuluaga RN Position: [facility] RN Member Role: Primary Care Nurse Care Team Related Persons Name: MARKZENAIDA ADAIR Address: [place], [place] Name: TIA RIVERS Address: home [address] [place] [address] Name: JOHANN RETANA Address: [place], [place]
--- OUTSIDE RECORDS SUMMARY | 2023-10-14 17:00 | XMS_ITS | Continuity of Care Document ---
Author Organization [facility] Address [address] [address]- Care Team Providers Care Application Chemist Name Role Phone Sharon Vides MD Primary Care Physician [place] [facility] [place]s): 09/02/19 - 10/06/19 [facility] [address] [address] [facility] Attending Physician: Rosendo Humphries MD Admitting [...] By Mouth, Daily, Dr. primo Renee at [place], # 30 tablet, 0 Refills, Maintenance, 01/26/18 16:36:23 EDT, ER Tablet Start Date: 01/26/18 Status: Ordered metroNIDAZOLE 500 mg oral tablet 1 tablet = 500 mg, By Mouth, Every 8 hours, may take with food to minimize abdominal discomfort, # 18 tablet, 0 Refills, Maintenance, 09/06/19 14:42:00 EST, Tablet, [facility], 160, cm,09/06/19 7:35:00 EST, Height, 60.3, [...]
--- OUTSIDE RECORDS SUMMARY | 2023-10-14 17:00 | XMS_ITS | Continuity of Care Document ---
Author Organization [facility] Address [address] [place] [address]- Care Team Providers Care Painter And Decorator Apprentice Name Role Phone Caitlyn Bowie MD Primary Care Physician [phone] Encounter [facility] Date(s): 11/10/21 - 12/26/21 [facility] [address] [place], [place] [address] Attending Physician: Caitlyn Bowie MD Allergies, [...] day, 0 Refills, Maintenance, 11/06/21 12:44:00 EDT, [place], Partialfill upon patient request if the prescription [...] Refills, Maintenance, 11/09/21 9:33:00 EDT, EC Capsule, [facility], Partial fill upon [...]
--- OUTSIDE RECORDS SUMMARY | 2023-10-14 17:00 | XMS_ITS | Continuity of Care Document ---
Author Organization [facility] Address [address] [place] [address]- Care Team Providers Care Poultry Hatchery Man Name Role Phone Caitlyn Bowie MD Primary Care Physician [phone] Encounter [facility] Date(s): 09/14/22 - 10/14/22 [facility] [address] [place] [address]- [place] Allergies, Adverse Reactions, Alerts Substance Reaction [...] 15:50:00 EDT, 09/12/22 15:50:00 EST, [facility], 159, cm, 09/12/22 11:14:00 EST, [...] Care Team Personnel Name: Val Wynne Position: [facility] Onco RN Member Role: Primary Care Nurse Name: Karen Pittman RN Position: S RN Member Role: Primary Care Nurse Name: Shilpi Mattson Position: Reference Physician Member Role: Primary Care Nurse Address: Address: [address] [place] [address] [address] [place] [address]- [place] Name: Toyin Doherty RN Position: [facility] RN Member Role: Primary Care Nurse Name: Eben Hernandez NP Position: [facility] Associate Professional Member Role: Lifetime Consulting Provider Address: Address: [address] [place] [address]- Name: Alejandrina Turner RN Position: [facility] RN Member Role: Primary Care Nurse Name: Zoraida Felix RN Position: [facility] RN Member Role: Primary Care Nurse Name: Daphne Hooker RN Position: [facility] RN Member Role: Primary Care Nurse Name: Nasima Gonzalez RN Position: [facility] RN Supv Member Role: Primary Care Nurse Name: Caitlyn Bowie MD Position: [facility] Primary Care Physician Member Role: PCP Address: Address: [address] [place] [address]- Name: Sheeba García Position: [facility] RN Member Role: Primary Care Nurse Name: Kiki Abdi RN Position: [facility] RN Member Role: Primary Care Nurse Name: Marry Reza Position: [facility] RN Member Role: Primary Care Nurse Name: Veronica Hurst [place] Position: [facility] PCO RN Member Role: Lifetime Consulting Physician Name: Maddie Herrera RN Position: [facility] RN Member Role: Primary Care Nurse Name: Raegan Baptiste RN Position: [facility] RN Member Role: Primary Care Nurse Name: Svitlana Marcum RN Position: [facility] AMB Nurse Member Role: Primary Care Nurse Name: She Pool Position: [facility] RN Member Role: Primary Care Nurse Name: Kaila Latham RN Position: [facility] RN Member Role: Primary Care Nurse Name: Julio C Bahena Position: [facility] RN Member Role: Primary Care Nurse Name: Nasima Heredia RN Position: [facility] RN Member Role: Primary Care Nurse Name: Katherine Nixon PharmD Position: [facility] Associate Professional Member Role: Lifetime Consulting Provider Address: Address: [address] [place] [address] Name: Daphne Barton RN Position: [facility] RN Member Role: Primary Care Nurse Name: Katherine Long RN Position: [facility] RN Member Role: Primary Care Nurse Name: Norma Serrano RN Position: [facility] RN Member Role: Primary Care Nurse Name: Seven Kelly RN Position: [facility] RN Member Role: Primary Care Nurse Name: Fani Perez RN Position: [facility] RN Member Role: Primary Care Nurse Name: Hattie Brewster RN Position: [facility] RN Member Role: Primary Care Nurse Name: Yudith Rothman RN Position: [facility] Onco RN Member Role: Primary Care Nurse Name: Kelly Hernandez RN Position: [facility] RN Member Role: Primary Care Nurse Name: Parris Zuluaga RN Position: [facility] RN Member Role: Primary Care Nurse Care Team Related Persons Name: ZENAIDA FLORES Address: [place], [place] Name: TIA RIVERS Address: home [address] [place] [address] Name: JOHANN RETANA Address: [place], [place]
--- OUTSIDE RECORDS SUMMARY | 2023-10-14 17:00 | XMS_ITS | Continuity of Care Document ---
Author Organization [facility] Address [address] [place] [address]- Care Team Providers Care Staff Cytotechnologist Name Role Phone Peewee STARK, Sharon Primary Care Physician ( [phone] [place] [facility] [place]/29/19 - 08/29/[address] [address]- [facility] Attending Physician: Shawn [facility], Danita Rivera Allergies, [...] By Mouth, Daily, Dr. primo Renee at [place], # 30 tablet, 0 Refills, Maintenance, 01/26/18 [...]
--- OUTSIDE RECORDS SUMMARY | 2023-10-14 17:00 | XMS_ITS | Continuity of Care Document ---
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(Discharge Diagnosis) - 05/05/21 Coronary artery disease(Discharge Diagnosis) - 05/05/21 Anxiety(Discharge Diagnosis) - 05/05/21 Attending Physician: Caitlyn Bowie MD Allergies, Adverse Reactions, Alerts Substance Reaction Severity Status ciprofloxacin Active gentamicin Active penicillin 1 Active barium sulfate Active Biaxin Active erythromycin Active vancomycin Active ipratropium Active [...] Clinical Service Informant Antiphospholipid syndrome Discharge Diagnosis 05/05/21 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 Discharge Diagnosis 05/05/21 Coronary artery disease Discharge Diagnosis 05/05/21 Anxiety Discharge Diagnosis 05/05/21 Vital Signs Most recent to oldest [Reference Range]: 1 Height 160 cm (05/05/21 1:46 PM) Weight 58.2 kg (05/05/21 1:46 PM) Oxygen Saturation [94-100 %] 96 % (05/05/21 1:46 PM) Pulse Rate [55-90 bpm] 82 bpm (05/05/21 1:46 PM) Body Mass Index [18.5-24.99] 22.73 (05/05/21 1:46 PM) Blood Pressure [90-138/55-84 mm Hg] 112/ 58mm Hg (05/05/21 1:46 PM) Respiratory Rate [16-30 br/min] 18 br/mi n (05/05/21 1:46 PM) Temperature [96.8-100.4 DegF] 98.2 DegF (05/05/21 1:46 PM) Liters per Minute 2 L/min (05/05/21 1:46 PM) Mode of Delivery (Oxygen) Nasal cannula (05/05/21 1:46 PM) Blood pressure sites Arm, left (05/05/21 1:46 PM) Temperature Route Temporal (05/05/21 1:46 PM) Weight Obtained Via Standing scale (05/05/21 1:46 PM) Social History Social History Type Response Smoking Status Never smoker; Tobacc o user in household: No entered on: 04/05/17 Sex
--- OUTSIDE RECORDS SUMMARY | 2023-10-14 17:00 | XMS_ITS | Continuity of Care Document ---
Author Organization [facility] Address [address] [address]- Care Team Providers Care Information Writer Name Role Phone Peewee STARK, Sharon Primary Care Physician Encounter [facility] [place] Date(s): 03/09/20 - 04/08/20 [facility] [address] [address]- [facility] Attending Physician: Melissa Morrison Admitting Physician: AdmtrMelissa Referring Physician: Admtr, Ar8 Allergies, Adverse Reactions, Alerts Substance Reaction Severity Status ciprofloxacin Active penicillin 1 Active barium sulfate Active Zithromax Active Novocain Active Gastrografin Active Levaquin Avocado Active gentamicin Active erythromycin Active vancomycin Active morphine Active sulfa drugs Active iodinated radiocontrast dyes Active Voltaren Active Flagyl Active Biaxin Active Bee Stings [...] By Mouth, Daily, Dr. primo Renee at [place], # 30 tablet, 0 Refills, Maintenance, 01/26/18 16:36:23 EDT, ER Tablet Start Date: 01/26/18 Status: Ordered metroNIDAZOLE 500 mg oral tablet 1 tablet = 500 mg, By Mouth, Every 8 hours, may take with food to minimize abdominal discomfort, # 18 tablet, 0 Refills, Maintenance, 09/06/19 14:42:00 EST, Tablet, [facility] 3, 160, cm,09/06/19 7:35:00 EST, Height, [...]
--- OUTSIDE RECORDS SUMMARY | 2023-10-14 17:00 | XMS_ITS | Continuity of Care Document ---
Author Organization [facility] ter Address [address] [place] [address]- Care Team Providers Care Food Equipment Service Technician Name Role Phone Caitlyn Bowie MD Primary Care Physician [phone] Encounter [facility] Date(s): 01/27/22 - 05/23/[address] [address]- Encounter Diagnosis Chronic obstructive pulmonary disease, unspecified(Final) - Discharge Disposition: A-D/C Home Attending Physician: Ron Laboy MD Admitting Physician: Ron Laboy MD Referring Physician: Henry Kelly MD Allergies, Adverse Reactions, Alerts Substance Reaction [...] Member Role: Primary Care Nurse Address: Address: [address] [place] [address] [address] [place], [place] [address] Name: Toyin Doherty RN Position: [facility] RN Member Role: Primary Care Nurse Name: Eben Hernandez NP Position: [facility] Associate Professional Member Role: Lifetime Consulting Provider Address: Address: [address] [place] [address]- Name: Alejandrina Turner RN Position: [facility] RN Member Role: Primary Care Nurse Name: Zoraida Felix RN Position: [facility] RN Member Role: Primary Care Nurse Name: Daphne Hooker RN Position: [facility] RN Member Role: Primary Care Nurse Name: Nasima Gonzalez RN Position: [facility] RN Supv Member Role: Primary Care Nurse Name: Caitlyn Bowie MD Position: [facility] Primary Care Physician Member Role: PCP Address: Address: [address] [place] [address]- Name: Sheeba García Position: [facility] RN Member Role: Primary Care Nurse Name: Kiki Abdi RN Position: [facility] RN Member Role: Primary Care Nurse Name: Marry Reza Position: [facility] RN Member Role: Primary Care Nurse Name: Veronica Hurst MA Position: [facility] PCO RN Member Role: Lifetime Consulting Physician Name: Maddie Herrera RN Position: [facility] RN Member Role: Primary Care Nurse Name: Raegan Baptiste RN Position: [facility] RN Member Role: Primary Care Nurse Name: Svitlana Marcum RN Position: [facility] AMB Nurse Member Role: Primary Care Nurse Name: She Pool Position: [facility] RN Member Role: Primary Care Nurse Name: Kaila Latham RN Position: [facility] RN Member Role: Primary Care Nurse Name: Julio C Bahena Position: [facility] RN Member Role: Primary Care Nurse Name: Nasima Heredia RN Position: [facility] RN Member Role: Primary Care Nurse Name: Katherine Nixon PharmD Position: [facility] Associate Professional Member Role: Lifetime Consulting Provider Address: Address: [address] [place] [address]- Name: Daphne Barton RN Position: [facility] RN Member Role: Primary Care Nurse Name: Katherine Long RN Position: [facility] RN Member Role: Primary Care Nurse Name: Norma Serrano RN Position: [facility] RN Member Role: Primary Care Nurse Name: Aurea Kelly RN Position: [facility] RN Member Role: Primary Care Nurse Name: Seven Kelly RN Position: S RN Member Role: Primary Care Nurse Name: Fani Perez RN Position: [facility] RN Member Role: Primary Care Nurse Name: Emely Her Position: [facility] RN Member Role: Primary Care Nurse Name: Yudith Rothman RN Position: [facility] RN Member Role: Primary Care Nurse Name: Parris Zuluaga RN Position: [facility] RN Member Role: Primary Care Nurse Care Team Related Persons Name: MARK ZENAIDA Address: [address] [place] [address] Name: TIA RIVERS Address: home [address] [place] [address] Name: JOHANN RETANA Address: [place] [address]
--- OUTSIDE RECORDS SUMMARY | 2023-10-14 17:00 | XMS_ITS | Continuity of Care Document ---
Author Organization [facility] Address [address] [place] [address]- Care Team Providers Care Maintenance And Operations Supervisor Name Role Phone Caitlyn Bowie MD Primary Care Physician [facility] Date[facility]s): 09/06/21 - 10/06/21 [facility] [address] [place], [place] [address] Allergies, Adverse Reactions, Alerts Substance Reaction [...]
--- OUTSIDE RECORDS SUMMARY | 2023-10-14 17:00 | XMS_ITS | Continuity of Care Document ---
Author Organization [facility] Address [address] [place] [address]- Care Team Providers Care Tipple Supervisor Name Role Phone Azeb STARK, Caitlyn Thompson Primary Care Physician [facility] Date(s): 11/01/21 - 12/01/21 [facility] [address] [place], [place] [address] [...] day, 0 Refills, Maintenance, 11/06/21 12:44:00 EDT, [place], Partialfill upon patient request if the prescription [...] Refills, Maintenance, 11/09/21 9:33:00 EDT, EC Capsule, [facility], Partial fill upon patient request [...]
--- OUTSIDE RECORDS SUMMARY | 2023-10-14 17:00 | XMS_ITS | Continuity of Care Document ---
Author Organization [facility] ter Address [address] [place] [address]- Care Team Providers Care Take Off Worker Name Role Phone Caitlyn Bowie MD Primary Care Physician Encounter [facility] Date(s): 04/08/22 - 05/14/[address] [address] Attending Physician: Ron Laboy MD Admitting Physician: [...] days of antibiotics, as prescribed by your diversified crops farmer, 0 Refills, Maintenance, 04/14/22 10:18:00 EDT, Tablet, [...] congetsiton, 0 Refills, Maintenance, 11/06/21 12:44:00 EDT, [place], Partial fill upon patient request if the [...] EDT, 03/08/22 13:24:00 EDT, [id number], do not fill unless pt [...] 11/09/21 9:33:00 EDT, EC Capsule, [facility], Partial fill upon patient request [...] mg, By Mouth, Daily at bedtime, Dr. Klely, 0 Refills, Maintenance, 02/14/15 9:19:23 EDT, Tablet [...] follow up with Coumadin clinic for dosea anamika ic, 0 Refills, Maintenance, 09/24/21 11:37:00 EDT, [...] Personnel Name: Caitlyn Bowie MD Address: Address: [address] [place] [address]
--- OUTSIDE RECORDS SUMMARY | 2023-10-14 17:01 | XMS_ITS | Continuity of Care Document ---
Author Organization [facility] Address [address] [place] [address]- Care Team Providers Care Drafter Commercial Name Role Phone Caitlyn Bowie MD Primary Care Physician Encounter [facility] Date(s): 09/13/23 - 10/13/23 [facility] [address] [place] [address]- [place] Allergies, Adverse Reactions, Alerts Substance Reaction Severity Status ciprofloxacin Active clindamycin throat tightening Active erythromycin Active penicillin 1 Active vancomycin Active busPIRone Feeling of throat ti ghtness Headache Dizziness Active ipratropium Active morphine Active barium sulfate Active iodinated radiocontrast dyes Active gentamicin Active sulfa drugs Active Voltaren Active Zithromax Active Biaxin Active Flagyl Active Novocain Active Gastrografin Active [...] Care Team Personnel Name: Val Wynne Position: [facility] Onco RN Member Role: Primary Care Nurse Name: Karen Pittman RN Position: [facility] RN Member Role: Primary Care Nurse Name: Shilpi Mattson Position: Reference Physician Member Role: Primary Care Nurse Address: Address: [address] [place] [address]- Name: Toyin Doherty RN Position: [facility] RN Member Role: Primary Care Nurse Name: Eben Hernandez NP Position: [facility] Associate Professional Member Role: Lifetime Consulting Provider Address: Address: [address] [place] [address]- Name: Alejandrina Turner RN Position: [facility] RN Member Role: Primary Care Nurse Name: Zoraida Felix RN Position: [facility] ED RN W/OE and Tasks Member Role: Primary Care Nurse Name: Jaye Harley Position: [facility] MA Cooker Process Cheese Member Role: Document Analyst Name: Daphen Hooker RN Position: [facility] RN Member Role: Primary Care Nurse Name: Caitlyn Bowie MD Position: [facility] Physician - Primary Care Member Role: PCP Address: Address: [address] [place] [address]- Name: Kiki Abdi RN Position: [facility] RN Member Role: Primary Care Nurse Name: Marry Reza Position: [facility] RN Member Role: Primary Care Nurse Name: Veronica Hurst MA Position: [facility] AMB MA Member Role: Lifetime Consulting Physician Name: Maddie Herrera RN Position: [facility] AMB Nurse Member Role: Primary Care Nurse Name: Yudith Herrera RN Position: [facility] Onco [...] Heredia RN Position: [facility] ED RN W/OE and Tasks Member Role: Primary Care Nurse Name: Katherine Nixon PharmD Position: [facility] Associate Professional Member Role: Lifetime Consulting Provider Address: Address: [address] [place] [address]- Name: Daphne Barton RN Position: [facility] RN Member Role: Primary Care Nurse Name: Katherine Long RN Position: [facility] RN Member Role: Primary Care Nurse Name: Norma Serrano RN Position: [facility] RN Member Role: Primary Care Nurse Name: Seven Kelly RN Position: [facility] ED RN W/OE and Tasks Member Role: Primary Care Nurse Name: Fani Perez RN Position: [facility] RN Member Role: Primary Care Nurse Name: Hattie Brewster RN Position: [facility] RN Member Role: Primary Care Nurse Name: Kelly Hernandez RN Position: [facility] RN Member Role: Primary Care Nurse Name: Pallavi Wylie LPN Position: [facility] RN Member Role: Primary Care Nurse Name: Parris Zuluaga RN Position: [facility] RN Member Role: Primary Care Nurse Care Team Related Persons Name: MARKZENAIDA ADAIR Address: [place] [address] Name: TIA RIVERS Address: [place] [address] Name: JOHANN RETANA Address: [place] [address]
--- OUTSIDE RECORDS SUMMARY | 2023-10-14 17:01 | XMS_ITS | Continuity of Care Document ---
Author Organization [facility] Address [address] [place] [address]- Care Team Providers Care Instruments Sales Representative Name Role Phone Caitlyn Bowie MD Primary Care Physician [phone] [facility] Date(s): 10/08/21 - 11/07/21 [facility] [address] [place], [place] [address] Allergies, Adverse Reactions, Alerts Substance Reaction Severity [...] day, 0 Refills, Maintenance, 11/06/21 12:44:00 EDT, [place], Partialfill upon patient request if the prescription [...]
--- OUTSIDE RECORDS SUMMARY | 2023-10-14 17:01 | XMS_ITS | Continuity of Care Document ---
Author Organization [facility] Address [address] [place] [address]- Care Team Providers Care Molder Wax Ball Name Role Phone Caitlyn Bowie MD Primary Care Physician [facility]counter [facility] Date(s): 03/09/23 - 03/16/23 [facility] [address] [place], [place] [address] Attending Physician: Donell Mcmahon MD Allergies, Adverse [...] oldest [Reference Range]: 1 Height 158 cm (03/09/23 3:18 PM) Weight 59 kg (03/09/23 3:18 PM) Oxygen Saturation [94-100 %] 98 % (03/09/23 3:18 PM) Pulse Rate [55-90 bpm] 82 bpm (03/09/23 3:18 PM) Body Mass Index [18.5-24.99 kg/m2] 23.63 kg/m2 (03/09/23 3:18 PM) Blood Pressure [90-138/55-84 mm Hg] 108/ 61mm Hg (03/09/23 3:18 PM) Liters per Minute 2 L/min (03/09/23 3:18 PM) Mode of Delivery (Oxygen) Nasal cannula (03/09/23 3:18 PM) Blood pressure sites Arm, left (03/09/23 3:18 PM) Weight Obtained Via Standing scale (03/09/23 3:18 PM) Social History Social History Type Response [...] Role: Primary Care Nurse Address: Address: [address] [place] [address] Name: Toyin Doherty RN Position: [facility] RN Member Role: Primary Care Nurse Name: Eben Hernandez NP Position: [facility] Associate Professional Member Role: Lifetime Consulting Provider Address: Address: [address] [place] [address]- [place] Name: Alejandrina Turner RN Position: [facility] RN Member Role: Primary Care Nurse Name: Zoraida Felix RN Position: [facility] RN Member Role: Primary Care Nurse Name: Daphne Hooker RN Position: [facility] RN Member Role: Primary Care Nurse Name: Nasima Gonzalez RN Position: [facility] RN Supv Member Role: Primary Care Nurse Name: Caitlyn Bowie MD Position: [facility] Physician - Primary Care Member Role: PCP Address: Address: [address] [place] [address]- [place] Name: Kiki Abdi RN Position: [facility] RN Member Role: Primary Care Nurse Name: Marry Reaz Position: [facility] RN Member Role: Primary Care Nurse Name: Veronica Hurst MA Position: [facility] SALLY MA Member Role: Lifetime Consulting Physician Name: Maddie Herrera RN Position: [facility] AMB Nurse Member Role: Primary Care Nurse Name: Raegan Baptiste RN Position: [facility] RN Member Role: Primary Care Nurse Name: She Pool Position: [facility] RN Member Role: Primary Care Nurse Name: Kaila Latham RN Position: [facility] RN Member Role: Primary Care Nurse Name: Julio C Bahena Position: [facility] RN Member Role: Primary Care Nurse Name: Nasima Heredia RN Position: [facility] RN Member Role: Primary Care Nurse Name: Katherine Nixon PharmD Position: [facility] Associate Professional Member Role: Lifetime Consulting Provider Address: Address: [address] [place] [address]- [place] Name: Daphne Barton RN Position: [facility] RN Member Role: Primary Care Nurse Name: Katherine Long RN Position: [facility] RN Member Role: Primary Care Nurse Name: Norma Serrano RN Position: [facility] RN Member Role: Primary Care Nurse Name: Seven Kelly RN Position: [facility] RN Member Role: Primary Care Nurse Name: Fani Perez RN Position: [facility] RN Member Role: Primary Care Nurse Name: Hattie Brewster RN Position: [facility] RN Member Role: Primary Care Nurse Name: Yudith Rothman RN Position: [facility] Onco RN Member Role: Primary Care Nurse Name: Kelly Hernandez RN Position: [facility] RN Member Role: Primary Care Nurse Name: Parris Zuluaga RN Position: [facility] RN Member Role: Primary Care Nurse Care Team Related Persons Name: ZENAIDA FLORES Address: [place] [address] Name: TIA RIVERS Address: [place] [address] Name: JOHANN RETANA Address: [place] [address]
--- OUTSIDE RECORDS SUMMARY | 2023-10-14 17:01 | XMS_ITS | Continuity of Care Document ---
Author Organization [facility] Address [address] [place] [address]- Care Team Providers Care Bacteriologist Industrial Name Role Phone Caitlyn Bowie MD Primary Care Physician [phone] Encounter [facility] Date(s): 08/28/23 - 09/27/23 [facility] [address] [place] [address] Attending Physician: Melissa Morrison Admitting Physician: [...] Progress note * Patti Lynch MD: SIGN Cris STARK, Patti: SIGN, MODIFY Patti Lynch MD: MODIFY, MODIFY Patti Lynch MD: MODIFY, MODIFY Cris STARK, Patti: MODIFY, PERFORM Patti Lynch MD: PERFORM, SIGN Cris STARK, Patti: SIGN, VERIFY Patti Lynch MD: VERIFY Kiki Long: MODIFY, MODIFY Kiki Long: MODIFY, MODIFY Event Display: Progress Note Hospital Authored Date: Patient: CINDA MALIK Age: 72 years Sex: [...] 6.6 k/mm3 Abs. Lymph 1.2 k/mm3 Abs. [place] 1.0 k/mm3 H Abs. Eo 0.1 k/mm3 Abs. Baso 0.1 k/mm3 Neut % 72.3 % Lymph % 13.5 % L [place] % 10.7 % H Eos % 1.2 [...] 99 ML/MIN/1.73 M2 MICROBIOLOGY Culture/Event_id: Fungal Culture, Respiratory/[id number] Collect date: 01/27/18 13:50 Result Status: Preliminary [...] Event Display: Progress Note Hospital Authored Date: [id number] Hogan and Dr. Jacobo [...] Extremity, Non-BH Authored Date: * Event Display: Ultrasound Lower Extremity, Non-BH Authored Date: * Event Display: CT Scan Chest, Non- Authored Date: * Event Display: [place] Nuclear Medicine, Non- Authored Date: * Event Display: CT Scan Chest, Non- Authored Date: * Event Display: Ultrasound Neck, Non- Authored Date: Patient Care team information Care Team Personnel Name: Sherrell , Val Position: [facility] Onco RN Member Role: Primary Care Nurse Name: Karen Pittman RN Position: S RN Member Role: Primary Care Nurse Name: Shilpi Mattson Position: Reference Physician Member Role: Primary Care Nurse Address: Address: [address] [place] [address]- [place] Name: Toyin Doherty RN Position: [facility] RN Member Role: Primary Care Nurse Name: Eben Hernandez NP Position: [facility] Associate Professional Member Role: Lifetime Consulting Provider Address: Address: [address] [place] [address]- [place] Name: Alejandrina Turner RN Position: [facility] RN Member Role: Primary Care Nurse Name: Zoraida Felix RN Position: [facility] ED RN W/OE and Tasks Member Role: Primary Care Nurse Name: Jaye Harley Position: [facility] MA Hasher Operator Member Role: Utility Lineman Name: Daphne Hooker RN Position: [facility] RN Member Role: Primary Care Nurse Name: Caitlyn Bowie MD Position: [facility] Physician - Primary Care Member Role: PCP Address: Address: [address] [place] [address]- [place] Name: Kiki Abdi RN [facility] [...] Role: Lifetime Consulting Provider Address: Address: [address] [place] [address] Name: Daphne Barton RN [facility] Care Nurse Name: Pallavi Wylie LPN Position: [facility] RN Member Role: Primary Care Nurse Name: Parris Zuluaga RN Position: [facility] RN Member Role: Primary Care Nurse Care Team Related Persons Name: ZENAIDA FLORES Address: [place] [address] Name: TIA RIVERS Address: [place] [address] Name: JOHANN RETANA Address: [place] [address]
--- OUTSIDE RECORDS SUMMARY | 2023-10-14 17:01 | XMS_ITS | Continuity of Care Document ---
Author Organization [facility] Address [address] [place] [address]- Care Team Providers Care Director Of Trauma Name Role Phone Brennan Burnett MD Primary Care Physician [phone] [place] [facility] Date(s): 11/02/20 - 11/09/[address] [facility] [address] [place] [address]- Attending Physician: Brennan Burnett MD Admitting Physician: Brennan Burnett MD Allergies, Adverse Reactions, [...] By Mouth, Daily, Dr. primo Renee at [place], # 30 tablet, 0 Refills, Maintenance, 01/26/18 [...] oldest [Reference Range]: 1 Height 160 cm (11/02/20 1:52 PM) Weight 60 kg (11/02/20 1:52 PM) Oxygen Saturation [94-100 %] 97 % (11/02/20 1:52 PM) Pulse Rate [55-90 bpm] 81 bpm (11/02/20 1:52 PM) Body Mass Index [18.5-24.99] 23.44 (11/02/20 1:52 PM) Blood Pressure [90-138/55-84 mm Hg] 110/ 52mm Hg (11/02/20 1:52 PM) Blood pressure sites Arm, left (11/02/20 1:52 PM) Weight Obtained Via Patient/family state d (11/02/20 1:52 PM) Social History Social History Type Response Smoking Status Never smoker; Tobacc o user in household: No entered on: 04/05/17 Sex
--- OUTSIDE RECORDS SUMMARY | 2023-10-14 17:01 | XMS_ITS | Continuity of Care Document ---
Author Organization [facility] Address [address] [place] [address]- Care Team Providers Care Brush Washer Name Role Phone Caitlyn Bowie MD Primary Care Physician [facility] Date[facility]s): 10/06/21 - 11/05/21 [facility] [address] [place], [place] [address] Allergies, Adverse Reactions, Alerts Substance [...]
--- OUTSIDE RECORDS SUMMARY | 2023-10-14 17:01 | XMS_ITS | Continuity of Care Document ---
Author Organization [facility] Address [address] [place] [address]- Care Team Providers Care Neurological Surgery Teacher Name Role Phone Caitlyn Bowie MD Primary Care Physician [facility] Date(s): 07/06/21 - 08/05/21 [facility] [address] [place], [place] [address] Allergies, Adverse Reactions, Alerts Substance [...]
--- OUTSIDE RECORDS SUMMARY | 2023-10-14 17:01 | XMS_ITS | Continuity of Care Document ---
Author Organization [facility] Address [address] [place] [address]- Care Team Providers Care Artificial Stone Setter Name Role Phone Caitlyn Bowie MD Primary Care Physician [facility]counter [facility] Date(s): 05/10/21 - 06/09/21 [facility] [address] [place] [address] Allergies, Adverse Reactions, Alerts Substance Reaction Severity Status ciprofloxacin Active barium sulfate Active Flagyl Active gentamicin [...]
--- OUTSIDE RECORDS SUMMARY | 2023-10-14 17:01 | XMS_ITS | Continuity of Care Document ---
Author Organization [facility] ter Address [address] [place] [address]- Care Team Providers Care Job Coach Name Role Phone Caitlyn Bowie MD Primary Care Physician Encounter [facility] Date(s): 09/12/22 - 09/12/[address] [address]- Encounter Diagnosis Dizziness(Final) - 09/12/22 Discharge Disposition: A-D/C Home Attending Physician: Quentin Shen MD Admitting Physician: Quentin Shen MD Referring Physician: Not on Staff, Referring [...] Date: 09/12/22 Stop Date: 02/09/23 Status: Ordered metoprolol 25 mg oral tablet, extended release 25 mg, Tablet, By Mouth, Once, STAT, 09/12/22 11:11:00 EST, Stop date 09/12/22 11:11:00 EST Start Date: 09/12/22 Stop Date: 09/12/22 Status: Completed Metoprolol Succinate ER 25 mg [...] Exam Date Time Procedure Performing Provider Status 09/12/22 7:11 AM Chest Portable Sheila Castle; Auth ( Verified) Notes: (Chest Portable) Reason For Exam: Shortness of Breath RESULT: Chest Portable Chest Portable Hx of Present Illness: dizziness, vertigo; Reason: Shortness of Breath; Clinical Question(s): CHF COMPARISON: 08/03/2022 FINDINGS: LINES AND TUBES: None. LUNGS AND PLEURA: Clear lungs. Normal pulmonary vascularity. There is a moderate volume left pleural effusion, similar to prior exam with mild atelectasis, slightly improved. There is trace right pleural fluid. No pneumothorax. HEART, MEDIASTINUM AND PAULIE: Heart is normal in size. Aortic arch atherosclerosis. BONES AND SOFT TISSUES: No acute abnormality. IMPRESSION: No significant change in the moderate volume left pleural effusion. Improved adjacent atelectasis. No pulmonary parenchymal opacities to suggest interstitial edema. WSN: [id number] Ordering Physician: Vamsi Huang Dictated By: Darlin Bourgeois MD Dictated Date/Time: 09/12/22 8:14 am Reviewed By: Darlin Bourgeois MD Signed By: Darlin Bourgeois MD Signed Date/Time: 09/12/22 8:14 am Transcribed By: MART Transcribed Date/Time: 09/12/22 8:13 am Vital Signs Most recent to oldest [Reference Range]: 1 2 3 Height 159 cm (09/12/22 11:14 AM) 159 cm (09/12/22 10:45 AM) 159 cm (09/12/22 8:00 AM) Oxygen Saturation [94-100 %] 99 % (09/12/22 12:06 PM) 100 % (09/12/22 11:14 AM) 100 % (09/12/22 10:45 AM) Pulse Rate [55-90 bpm] 81 bpm (09/12/22 12:06 PM) 92 bpm *H* (09/12/22 11:14 AM) 84 bpm (09/12/22 10:45 AM) Blood Pressure [90-138/55-84 mm Hg] 140/67mm Hg *H* (09/12/22 12:06 PM) 153/81mm Hg *H* (09/12/22 11:14 AM) 100/71mm Hg (09/12/22 10:45 AM) Respiratory Rate [16-30 br/min] 18 br/min (09/12/22 12:06 PM) 18 br/min (09/12/22 11:14 AM) 18 br/min (09/12/22 10:45 AM) Temperature [96.8-100.4 DegF] 98.8 DegF (09/12/22 8:00 AM) 99.5 DegF (09/12/22 5:35 AM) Mode of Delivery (Oxygen) Room air (09/12/22 12:06 PM) Room air (09/12/22 11:14 AM) Room air (09/12/22 10:45 AM) Blood pressure sites Arm, right (09/12/22 12:06 PM) Arm, right (09/12/22 11:14 AM) Arm, right (09/12/22 10:45 AM) Temperature Route Oral (09/12/22 8:00 AM) Oral (09/12/22 5:35 AM) Social History Social History Type Response Smoking Status Never smoker; Tobacc o user in household: No entered on: 04/05/17 Sex EKG study * Event Display: ECG 12-Lead Authored Date: Please click on pdf link to open report * Event Display: ECG 12-Lead Authored Date: Ventricular Rate: 83 BPM Atrial Rate: 83 BPM P-R Interval: 164 ms QRS Duration: 112 ms Q-T Interval: 388 ms QTC Calculation(Bazett): 455 ms P Centre: 68 degrees R Centre: -55 degrees T Centre: 74 degrees Normal sinus rhythm Left anterior fascicular block Left ventricular hypertrophy with repolarization abnormality ( R in aVL , [place] product ) Abnormal ECG When compared with ECG of 11-AUG-2022 08:39, No significant change was found Confirmed by MELISSA CHAVARRIA ([id number]) on 09/12/2022 8:11:00 AM [place]: MELISSA CHAVARRIA Note * Norma Dixon MD: PERFORM, SIGN, VERIFY Event Display: Patient Education Handout Authored Date: * Norma Dixon MD: PERFORM Event Display: Patient Education Leaflets Authored Date: Bronchitis, No Antibiotics (Adult) ?? [id number] Bronchitis, No Antibiotics (Adult) Bronchitis is inflammation and swelling of the air passages (bronchial tubes) in your lungs. This is often caused by an infection. Your bronchitis was caused by a virus.??Symptoms include a dry, hacking cough that is worse at night. The cough may bring up yellow-green mucus. You may also feel shortof breath or wheeze. Other symptoms may include tiredness, chest discomfort, fever, and chills. This illness can be spread to other people in the first few days. It is spread through the air by coughing and sneezing. It is also spread by direct contact. This means touching the sick person and then touching your own eyes, nose, or mouth. Bronchitis that is caused by a virus is often not treated with antibiotic medicine. Instead, medicines may be given to help relieve symptoms. Symptoms can last up to 2 weeks. The cough may last much longer. Home care Follow these guidelines when caring for yourself at home: ??? If your symptoms are severe, rest at home for the first 2 to 3 days. When you go back to your daily tasks, don't let yourself get too tired. ??? Do not smoke. Stay away from secondhand smoke. ??? You may use wzfo-ngx-slvbgmz medicine to control fever or pain. Or use another pain medicine as prescribed.??If you have chronic liver or kidney disease or have ever had a stomach ulcer or bleeding in your stomach or intestines, talk with your healthcare provider before using these medicines. Also talk to your provider if you are taking medicine to prevent blood clots. Aspirin should never be taken by anyone under age 18 who has a virus or fever. It may cause severe liver or brain damage. ??? Your body needs a lot of fluids now. Drink 6 to 8 glasses of fluids per day. This includes water, soft drinks, sports drinks, juices, tea, or soup. Extra fluids will help loosen mucus in your nose and lungs. ??? Your appetite may be low. A light diet is fine. ??? Tacl-jdy-rxaqmup cough, cold, and sore-throat medicines will not shorten the rach gth of the illness. But they may help to reduce your symptoms. Don't use decongestants if you have high blood pressure. ?? Follow-up care Follow up with your healthcare provider, or as advised. If you had an X-ray or ECG (electrocardiogram), a specialist will review it. You will be told of any results that may affect your care. Ask your healthcare provider about the pneumococcal vaccines and a yearly flu shot. There are 2 kinds of pneumococcal vaccines. You may need both. You???re at higher risk of lung infection if any of these apply to you: ??? You are age 65 or older ??? You have a chronic lung disease ??? You have condition that affects your immune system ??? You smoke ?? When to get medical care Call your healthcare provider right away if you have any of these: ??? Fever of 100.4??F (38??C) orhigher ??? Coughing up more mucus ??? Facial pain or ear pain ??? Mild weakness, drowsiness, headache, or a stiff neck ?? Call 911 Call 911 if any of these occur: ??? Coughing up blood ??? Weakness, drowsiness, headache, or stiff neck that get worse ??? Trouble breathing, wheezing, or pain with breathing ??? Lips or skin looks blue, purple, or johnston in color ??? Feeling of doom ?? Last Reviewed Date: 2021 ?? [id number] [employer]. All rights reserved. This information is not intended as a substitute for professional medical care. Always follow your healthcare professional's instructions. ?? * Destiny STARK, Norma Carrillo: PERFORM Event Display: Patient Education Leaflets Authored Date: [id number] Subconjunctival Hemorrhage ?? [id number] Subconjunctival Hemorrhage A subconjunctival hemorrhage is a result of a broken blood vessel on the white part of the eye. It is usually painless. It may be caused by coughing, sneezing, or vomiting. An injury to the eye can cause this condition, too. It can also be a sign of high blood pressure (hypertension) or a bleeding disorder. This eye problem can look scary. But the presence of the blood is usually not serious. It will be reabsorbed without treatment within a few days to a few weeks. Home care You may continue your usual activities. ?? Follow-up care Follow up with your healthcare provider, or as advised. ?? When to seek medical advice Call your healthcare provider or seek medical care right away if any of these occur: ??? Pain in the eye ??? Change in vision ??? The blood does not go away within 3 weeks ??? Increasing redness or swelling of the eye ??? Severe headache or dizziness ??? Signs of bruising or bleeding from other parts of your body ?? Last Reviewed Date: 2022 ?? [id number] [employer]. All rights reserved. This information is not intended as a substitute for professional medical care. Always follow your healthcare professional's instructions. ?? Portable XR Chest Views * BHSPowerscribe , CIS S: TRANSCRIBE Darlin Bourgeois MD: VERIFY Event Display: Result: Authored Date: [id number] Chest Portable Hx of Present Illness: dizziness, vertigo; Reason: Shortness of Breath; Clinical Question(s): CHF COMPARISON: 08/03/2022 FINDINGS: LINES AND TUBES: None. LUNGS AND PLEURA: Clear lungs. Normal pulmonary vascularity. There is a moderate volume left pleural effusion, similar to prior exam with mild atelectasis, slightly improved. There is trace right pleural fluid. No pneumothorax. HEART, MEDIASTINUM AND PAULIE: Heart is normal in size. Aortic arch atherosclerosis. BONES AND SOFT TISSUES: No acute abnormality. IMPRESSION: No significant change in the moderate volume left pleural effusion. Improved adjacent atelectasis. No pulmonary parenchymal opacities to suggest interstitial edema. WSN: [id number] Ordering Physician: Vamsi Huang Dictated By: Darlin Bourgeois MD Dictated Date/Time: 09/12/22 8:14 am Reviewed By: aDrlin Bourgeois MD Signed By: Darlin Bourgeois MD Signed Date/Time: 09/12/22 8:14 am Transcribed By: MART Transcribed Date/Time: 09/12/22 8:13 am Patient Care team information Care Team Personnel Name: SherrellLauren tafoyaVal Position: [facility] Onco RN Member Role: Primary Care Nurse Name: Karen Pittman RN Position: S RN Member Role: Primary Care Nurse Name: Shilpi Mattson Position: Reference Physician Member Role: Primary Care Nurse Address: Address: [address] [place] [address] [address] [place] [address]- [place] Name: Toyin Doherty RN Position: [facility] RN Member Role: Primary Care Nurse Name: Eben Hernandez NP Position: [facility] Associate Professional Member Role: Lifetime Consulting Provider Address: Address: [address] [place] [address]- Name: Alejandrina Turner RN Position: [facility] RN Member Role: Primary Care Nurse Name: Zoraida Felix RN Position: [facility] RN Member Role: Primary Care Nurse Name: Daphne Hooker RN Position: [facility] RN Member Role: Primary Care Nurse Name: Nasima Gonzalez RN Position: [facility] RN Supv Member Role: Primary Care Nurse Name: Caitlyn Bowie MD Position: [facility] Primary Care Physician Member Role: PCP Address: Address: [address] [place] [address]- Name: Sheeba García [facility] Marcum RN Position: [facility] SALLY Nurse Member Role: Primary Care [...] Role: Lifetime Consulting Provider Address: Address: [address] [place] [address] - Name: Daphne Barton RN [facility]: [facility] Nurse Name: Hattie Brewster RN Position: [facility] RN Member Role: Primary Care Nurse Name: Yudith Rothman RN Position: [facility] Onco RN Member Role: Primary Care Nurse Name: Kelly Hernandez RN Position: [facility] RN Member Role: Primary Care Nurse Name: Parris Zuluaga RN Position: [facility] RN Member Role: Primary Care Nurse Name: Avi Rivera Position: [facility] ED TA [facility] Member Role: Dermatology Nurse Practitioner Name: Norma Dixon MD Position: [facility] Resident Member Role: ED Resident Address: Address: [address] [place] [address]- Name: Quentin Shen MD Position: [facility] ED Medicine MD Member Role: Admitting Physician Address: Address: [address] [place] [address] - Name: Olivia Pinto RN Position: [facility] ED RN W/OE and Tasks Member Role: Patient Care Provider Care Team Related Persons Name: ZENAIDA FLORES Address: [place], [place] Name: TIA RIVERS Address: [address] [address] Name: JOHANN RETANA Address: [place], [place]
--- OUTSIDE RECORDS SUMMARY | 2023-10-14 17:02 | XMS_ITS | Continuity of Care Document ---
Author Organization [facility] Address [address] [place] [address]- Care Team Providers Care Awake Overnight Monitor Name Role Phone Caitlyn Bowie MD Primary Care Physician [facility] Date[facility]): 04/25/22 - 05/25/22 [facility] [address] [place], [place] [address] Allergies, Adverse Reactions, Alerts Substance [...] Care Team Personnel Name: Val Wynne Position: [facility] Onco RN Member Role: Primary Care Nurse Name: Karen Pittman RN Position: S RN Member Role: Primary Care Nurse Name: Shilpi Mattson Position: Reference Physician Member Role: Primary Care Nurse Address: Address: [address] [place] [address] [address] [place] [address]- Name: Toyin Doherty RN Position: S RN Member Role: Primary Care Nurse Name: Eben Hernandez NP Position: [facility] Associate Professional Member Role: Lifetime Consulting Provider Address: Address: [address] [place] [address]- [place] Name: Alejandrina Turner RN Position: [facility] RN Member Role: Primary Care Nurse Name: Zoraida Felix RN Position: [facility] RN Member Role: Primary Care Nurse Name: Daphne Hooker RN Position: [facility] RN Member Role: Primary Care Nurse Name: Nasima Gonzalez RN Position: [facility] RN Supv Member Role: Primary Care Nurse Name: Caitlyn Bowie MD Position: [facility] Primary Care Physician Member Role: PCP Address: Address: [address] [place] [address]- Name: Sheeba García Position: [facility] RN Member Role: Primary Care Nurse Name: Kiki Abdi RN Position: [facility] RN Member Role: Primary Care Nurse Name: Marry Reza Position: [facility] RN Member Role: Primary Care Nurse Name: Veronica Hurst [place] Position: [facility] PCO RN Member Role: Lifetime Consulting Physician Name: Maddie Herrera RN Position: [facility] RN Member Role: Primary Care Nurse Name: Raegan Baptiste RN Position: [facility] RN Member Role: Primary Care Nurse Name: Svitlana Marcum RN Position: [facility] AMB Nurse Member Role: Primary Care Nurse Name: She Pool Position: [facility] RN Member Role: Primary Care Nurse Name: Kaila Latham RN Position: [facility] RN Member Role: Primary Care Nurse Name: Julio C Bahena Position: [facility] RN Member Role: Primary Care Nurse Name: Nasima Heredia RN Position: [facility] RN Member Role: Primary Care Nurse Name: Katherine Nixon PharmD Position: [facility] Associate Professional Member Role: Lifetime Consulting Provider Address: Address: [address] [place] [address]- Name: Daphne Barton RN Position: [facility] RN Member Role: Primary Care Nurse Name: Katherine Long RN Position: [facility] RN Member Role: Primary Care Nurse Name: Norma Serrano RN Position: [facility] RN Member Role: Primary Care Nurse Name: Aurea Kelly RN Position: [facility] RN Member Role: Primary Care Nurse Name: Seven Kelly RN Position: [facility] RN Member Role: Primary Care Nurse Name: Fani Perez RN Position: [facility] RN Member Role: Primary Care Nurse Name: Emely Her Position: S RN Member Role: Primary Care Nurse Name: Yudith Rothman RN Position: S RN Member Role: Primary Care Nurse Name: Parris Zuluaga RN Position: S RN Member Role: Primary Care Nurse Care Team Related Persons Name: ZENAIDA FLORES Address: [address] [place] [address] Name: TIA RIVERS Address: home [address] [place] [address] Name: JOHANN RETANA Address: [place] [address]
--- OUTSIDE RECORDS SUMMARY | 2023-10-14 17:02 | XMS_ITS | Continuity of Care Document ---
Author Organization [facility] Address [address] [place] [address]- Care Team Providers Care Skiver Welt End Name Role Phone Caitlyn Bowie MD Primary Care Physician [facility]s): 11/23/21 - 12/23/21 [facility] [address] [place], [place] [address] Allergies, Adverse Reactions, Alerts Substance [...] day, 0 Refills, Maintenance, 11/06/21 12:44:00 EDT, [place], Partialfill upon patient request if the prescription [...] 11/09/21 9:33:00 EDT, EC Capsule, [facility], Partial fill upon patient request [...]
--- OUTSIDE RECORDS SUMMARY | 2023-10-14 17:02 | XMS_ITS | Continuity of Care Document ---
Author Organization [facility] Address [address] [place] [address]- Care Team Providers Care Edger Liner Name Role Phone Caitlyn Bowie MD Primary Care Physician [phone] [facility]s): 01/25/23 - 02/24/23 [facility] [address] [place], [place] [address] Attending Physician: Admcliff, Melissa Admitting Physician: Admtr, [id number] Referring Physician: Admtr, Ar8 Allergies, Adverse Reactions, [...] [birth year]17 Sex Female Cardiology * Event Display: Cardiology Office Note, Non- Authored Date: * Event Display: Cardiology Office Note, Non- Authored Date: * Event Display: Non BH [...] Authored Date: Radiology * Event Display: X-Ray Abdomen, Non- Authored Date: * Event Display: [place] Nuclear Medicine, Non- Authored Date: * Event Display: X-Ray Chest, Non- Authored Date: Patient Care team information Care Team Personnel Name: Val Wynne Position: [facility] Onco RN Member Role: Primary Care Nurse Name: Karen Pittman RN Position: [facility] RN Member Role: Primary Care Nurse Name: Shilpi Mattson Position: Reference Physician Member Role: Primary Care Nurse Address: Address: [address] [address]- [place] Name: Toyin Doherty RN Position: [facility] RN Member Role: Primary Care Nurse Name: Eben Hernandez NP Position: [facility] Associate Professional Member Role: Lifetime Consulting Provider Address: Address: [address] [place] [address]- [place] Name: Alejandrina Turner RN Position: [facility] RN Member Role: Primary Care Nurse Name: Zoraida Felix RN Position: [facility] RN Member Role: Primary Care Nurse Name: Daphne Hooker RN Position: [facility] RN Member Role: Primary Care Nurse Name: Nasima Gonzalez RN Position: [facility] RN Supv Member Role: Primary Care Nurse Name: Caitlyn Bowie MD Position: [facility] Physician - Primary Care Member Role: PCP Address: Address: [address] [place] [address]- [place] Name: Kiki Abdi RN Position: [facility] RN Member Role: Primary Care Nurse Name: Marry Reza Position: [facility] RN Member Role: Primary Care Nurse Name: Veronica Hurst [place] Position: [facility] SALLY [place] Member Role: Lifetime Consulting Physician Name: Maddie Herrera RN Position: [facility] AMB Nurse Member Role: Primary Care Nurse Name: Raegan Baptiste RN Position: [facility] RN Member Role: Primary Care Nurse Name: She Pool Position: [facility] RN Member Role: Primary Care Nurse Name: Kaila Lathma RN Position: [facility] RN Member Role: Primary Care Nurse Name: Julio C Bahena Position: [facility] RN Member Role: Primary Care Nurse Name: Nasima Heredia RN Position: [facility] RN Member Role: Primary Care Nurse Name: Katherine Nixon PharmD Position: [facility] Associate Professional Member Role: Lifetime Consulting Provider Address: Address: [address] [place] [address]- [place] Name: Daphne Barton RN Position: [facility] RN Member Role: Primary Care Nurse Name: Katherine Long RN Position: [facility] RN Member Role: Primary Care Nurse Name: Norma Serrano RN Position: [facility] RN Member Role: Primary Care Nurse Name: Seven Kelly RN Position: [facility] RN Member Role: Primary Care Nurse Name: Fani Perez RN Position: [facility] RN Member Role: Primary Care Nurse Name: Hattie Brewster RN Position: [facility] RN Member Role: Primary Care Nurse Name: Yudith Rothman RN Position: [facility] Onco RN Member Role: Primary Care Nurse Name: Kelly Hernandez RN Position: [facility] RN Member Role: Primary Care Nurse Name: Parris Zuluaga RN Position: [facility] RN Member Role: Primary Care Nurse Care Team Related Persons Name: ZENAIDA FLORES Address: [place] [address] Name: TIA RIVERS Address: [place] [address] Name: JOHANN RETANA Address: [place] [address]
--- OUTSIDE RECORDS SUMMARY | 2023-10-14 17:02 | XMS_ITS | Continuity of Care Document ---
Author Organization [facility] Address [address] [place] [address]- Care Team Providers Care Interventional Cardiologist Name Role Phone Azeb STARK, Caitlyn Thompson Primary Care Physician [facility]s): 01/28/22 - 02/27/22 [facility] [address] [place], [place] [address] Allergies, Adverse Reactions, Alerts Substance [...] day, 0 Refills, Maintenance, 11/06/21 12:44:00 EDT, [place], Partialfill upon patient request if the prescription is for a schedule II opioid drug. Start Date: 11/06/21 Status: Ordered furosemide 20 mg oral tablet 1, tablet, By Mouth, Daily, PRN, # 90 tablet, Refills 2, NEEDED FOR LEG SWELLING, Route to Pharmacy Electronically, [facility], 160, cm, 12/23/21 8:08:00 EDT, Height, 59.2, kg, 11/18/21 9:04:00 EDT, Dry Weight Start Date: 12/23/21 Status: Ordered mupirocin 2% topical ointment 1 application, Topically, 3 times a day, apply thin layer on stye, # 22 Gm, 0 Refills, Acute 03/12/22 8:54:00 EDT, 02/10/22 8:53:00 EDT, Ointment, [facility], Partial fill upon patient request if the prescription is for a schedule II opi... Start Date: 02/10/22 Stop Date: 03/12/22 Status: Ordered omeprazole 40 mg oral enteric coated capsule 1 capsule = 40 mg, By Mouth, Daily, # 5 capsule, 0 Refills, Maintenance, 11/09/21 9:33:00 EDT, EC Capsule, [facility], Partial fill upon patient [...]
--- OUTSIDE RECORDS SUMMARY | 2023-10-14 17:02 | XMS_ITS | Continuity of Care Document ---
Author Organization [facility] Address [address] [place] [address]- Care Team Providers Care Flexo Operator Name Role Phone Peewee STARK, Sharon Primary Care Physician ( [phone] Encounter [facility] [place] Date(s): 04/08/20 - 04/15/20 [facility] [address] [place] [address]- [place] Attending Physician: Joe Servin MD Admitting Physician: Joe Servin MD Referring Physician: Cristofer Spivey MD Allergies, [...] By Mouth, Daily, Dr. primo Renee at [place], # 30 tablet, 0 Refills, Maintenance, 01/26/18 16:36:23 EDT, ER Tablet Start Date: 01/26/18 Status: Ordered metroNIDAZOLE 500 mg oral tablet 1 tablet = 500 mg, By Mouth, Every 8 hours, may take with food to minimize abdominal discomfort, # 18 tablet, 0 Refills, Maintenance, 09/06/19 14:42:00 EST, Tablet, [facility], 160, cm,09/06/19 7:35:00 EST, Height, [...] oldest [Reference Range]: 1 Height 160 cm (04/08/20 11:24 AM) Weight 61.5 kg (04/08/20 11:24 AM) Oxygen Saturation [94-100 %] 99 % (04/08/20 11:24 AM) Pulse Rate [55-90 bpm] 80 bpm (04/08/20 11:24 AM) Body Mass Index [18.5-24.99] 24.02 (04/08/20 11:24 AM) Blood Pressure [90-138/55-84 mm Hg] 125/ 52mm Hg (04/08/20 11:24 AM) Blood pressure sites Arm, left (04/08/20 11:24 AM) Weight Obtained Via Standing scale (04/08/20 11:24 AM) Social History Social History Type Response Smoking Status Never smoker; Tobacc o user in household: No entered on: 04/05/17 Sex
--- OUTSIDE RECORDS SUMMARY | 2023-10-14 17:02 | XMS_ITS | Continuity of Care Document ---
Author Organization [facility] Address [address] [place] [address]- Care Team Providers Care Lumber Kiln Operator Name Role Phone Caitlyn Bowie MD Primary Care Physician [facility] Date(s): 04/06/22 - 05/06/22 [facility] [address] [place] [address]- [place] Allergies, Adverse Reactions, Alerts Substance Reaction [...] days of antibiotics, as prescribed by your strategic business development, 0 Refills, Maintenance, 04/14/22 10:18:00 EDT, Tablet, [...] congetsiton, 0 Refills, Maintenance, 11/06/21 12:44:00 EDT, [facility], Partial fill upon patient request if the [...] 9:33:00 EDT, EC Capsule, [facility] 3, Partial fill upon patient [...] Female Patient Care team information Personnel Name: Azeb STARK, Caitlyn Thompson Address: Address: [address] [place] [id number]
--- OUTSIDE RECORDS SUMMARY | 2023-10-14 17:02 | XMS_ITS | Continuity of Care Document ---
Author Organization [facility] Address [address] [place] [address]- Care Team Providers Care Entry Level Staff Accountant Name Role Phone Caitlyn Bowie MD Primary Care Physician [phone] [place] [facility] [place](s): 03/08/22 - 04/07/22 [facility] [address] [place] [address]- Attending Physician: Melissa Morrison Admitting Physician: Melissa [...] day, 0 Refills, Maintenance, 11/06/21 12:44:00 EDT, [place], Partialfill upon patient request if the prescription is for a schedule II opioid drug. Start Date: 11/06/21 Status: Ordered furosemide 20 mg oral tablet 1, tablet, By Mouth, Daily, PRN, # 90 tablet, Refills 2, NEEDED FOR LEG SWELLING, Route to Pharmacy Electronically, [facility], 160, cm, 12/23/21 8:08:00 EDT, Height, 59.2, kg, 11/18/21 9:04:00 EDT, Dry Weight Start Date: 12/23/21 Status: Ordered Lidocaine Viscous 2% solution 5 mL = 0.1 Gm, Topically, 3 times a day with meals, PRN for mouth sore pain, Swish and spit., # 20 mL, 0 Refills, Acute 03/08/23 13:25:00 EDT, 03/08/22 13:24:00 EDT, Solution, [facility], do not fill unless pt [...] 11/09/21 9:33:00 EDT, EC Capsule, [facility] 3, Partial fill [...] Name: Azeb STARK, Caitlyn Thompson Address: Address: [address] [place] [address]
--- OUTSIDE RECORDS SUMMARY | 2023-10-14 17:03 | XMS_ITS | Continuity of Care Document ---
Author Organization [facility][1] Adult and Pedi Address [address] [place] [address]- Care Team Providers Care Licensed Occupational Therapy Assistant Name Role Phone Caitlyn Bowie MD Primary Care Physician [phone] [facility]counter [facility] Date(s): 06/23/22 - 07/23/22 [facility] Adult [facility] [address] [place], [place] [address] Allergies, Adverse Reactions, Alerts Substance Reaction Severity Status ciprofloxacin Active erythromycin Active barium sulfate Active iodinated radiocontrast dyes Active Zithromax Active gentamicin Active penicillin 1 Active vancomycin [...] a schedule II opioid dr... Start Date: 07/08/22 Stop Date: 07/18/22 Status: [...] Member Role: Primary Care Nurse Address: Address: [address] [place] [address] [address] [place] [address]- Name: Toyin Doherty RN Position: S RN Member Role: Primary Care Nurse Name: Eben Hernandez NP Position: [facility] Associate Professional Member Role: Lifetime Consulting Provider Address: Address: [address] [place] [address] Name: Alejandrina Turner RN Position: S RN [...] Physician Member Role: PCP Address: Address: [address] [place] [address]- Name: Sheeba García Position: [facility] [...] Care Nurse Name: Katherine Nixon PharmD Position: [facility] Associate Professional Member Role: Lifetime Consulting Provider Address: Address: [address] [place] [address]- Name: Daphne Barton RN Position: [facility] RN Member Role: Primary Care Nurse Name: Katherine Long RN Position: [facility] RN Member Role: Primary Care Nurse Name: Norma Serrano RN Position: [facility] RN Member Role: Primary Care Nurse Name: Aurea Kelly RN Position: [facility] RN Member Role: Primary Care Nurse Name: Seven Kelly RN Position: [facility] RN Member Role: Primary Care Nurse Name: Fani Perez RN Position: [facility] RN Member Role: Primary Care Nurse Name: Yudith Rothman RN Position: [facility] RN Member Role: Primary Care Nurse Name: Parris Zuluaga RN Position: [facility] RN Member Role: Primary Care Nurse Care Team Related Persons Name: ZENAIDA FLORES Address: [place] [address] Name: TIA RIVERS Address: [address] [address] Name: JOHANN RETANA Address: [place] [address]
--- OUTSIDE RECORDS SUMMARY | 2023-10-14 17:03 | XMS_ITS | Continuity of Care Document ---
Author Organization [facility] Adult [facility] Ped[facility] Address [address] [place] [address]- Care Team Providers Care Sole Layer Hand Name Role Phone Caitlyn Bowie MD Primary Care Physician [facility] Date(s): 09/07/22 - 10/07/22 [facility] [address] [place], [place] [address] Allergies, Adverse Reactions, Alerts [...] Care Team Personnel Name: Val Wynne Position: [facility] Onco RN Member Role: Primary Care Nurse Name: Karen Pittman RN Position: [facility] RN Member Role: Primary Care Nurse Name: Shilpi Mattson Position: Reference Physician Member Role: Primary Care Nurse Address: Address: [address] [place] [address] [address] [place] [address]- [place] Name: Toyin Doherty RN Position: [facility] RN Member Role: Primary Care Nurse Name: Eben Hernandez NP Position: [facility] Associate Professional Member Role: Lifetime Consulting Provider Address: Address: [address] [place] [address]- Name: Alejandrina Turner RN Position: [facility] RN Member Role: Primary Care Nurse Name: Zoraida Felix RN Position: [facility] RN Member Role: Primary Care Nurse Name: Daphne Hooker RN Position: [facility] RN Member Role: Primary Care Nurse Name: Nasima Gonzalez RN Position: [facility] RN Suprodney Member Role: Primary Care Nurse Name: Caitlyn Bowie MD Position: [facility] Primary Care Physician Member Role: PCP Address: Address: [address] [place] [address]- Name: Sheeba García Position: [facility] RN Member Role: Primary Care Nurse Name: Kiki Abdi RN Position: [facility] RN Member Role: Primary Care Nurse Name: Marry Reza Position: [facility] RN Member Role: Primary Care Nurse Name: Veronica Hurst [place] Position: [facility] PCO RN Member Role: Lifetime Consulting Physician Name: Maddie Herrera RN Position: [facility] RN Member Role: Primary Care Nurse Name: Raegan Baptiste RN Position: [facility] RN Member Role: Primary Care Nurse Name: Svitlana Marcum RN Position: [facility] AMB Nurse Member Role: Primary Care Nurse Name: She Pool Position: [facility] RN Member Role: Primary Care Nurse Name: Kaila Latham RN Position: [facility] RN Member Role: Primary Care Nurse Name: Julio C Bahena Position: [facility] RN Member Role: Primary Care Nurse Name: Nasima Heredia RN Position: [facility] RN Member Role: Primary Care Nurse Name: Katherine Nixon PharmD Position: [facility] Associate Professional Member Role: Lifetime Consulting Provider Address: Address: [address] [place] [address] Name: Daphne Barton RN Position: [facility] RN Member Role: Primary Care Nurse Name: Katherine Long RN Position: [facility] RN Member Role: Primary Care Nurse Name: Norma Serrano RN Position: [facility] RN Member Role: Primary Care Nurse Name: Seven Kelly RN Position: [facility] RN Member Role: Primary Care Nurse Name: Fani Perez RN Position: [facility] RN Member Role: Primary Care Nurse Name: Hattie Brewster RN Position: [facility] RN Member Role: Primary Care Nurse Name: Yudith Rothman RN Position: [facility] Onco RN Member Role: Primary Care Nurse Name: Kelly Hernandez RN Position: [facility] RN Member Role: Primary Care Nurse Name: Parris Zuluaga RN Position: [facility] RN Member Role: Primary Care Nurse Care Team Related Persons Name: ZENAIDA FLORES Address: [place], [place] Name: TIA RIVERS Address: [address] [address] Name: JOHANN RETANA Address: [place], [place]
--- OUTSIDE RECORDS SUMMARY | 2023-10-14 17:03 | XMS_ITS | Continuity of Care Document ---
Author Organization [facility] Address [address] [place] [address]- Care Team Providers Care Safety Relief Valve Technician Name Role Phone Peewee STARK, Sharon Primary Care Physician Encounter [facility] [place] Date(s): 12/26/19 - 01/25/20 [facility] [address] [place] [address]- [facility] Attending Physician: Not on Staff, Attending MD [...] By Mouth, Daily, Dr. primo Renee at [place], # 30 tablet, 0 Refills, Maintenance, 01/26/18 16:36:23 EDT, ER Tablet Start Date: 01/26/18 Status: Ordered metroNIDAZOLE 500 mg oral tablet 1 tablet = 500 mg, By Mouth, Every 8 hours, may take with food to minimize abdominal discomfort, # 18 tablet, 0 Refills, Maintenance, 09/06/19 14:42:00 EST, Tablet, [facility], 160, cm,09/06/19 7:35:00 [...]
--- OUTSIDE RECORDS SUMMARY | 2023-10-14 17:03 | XMS_ITS | Continuity of Care Document ---
Author Organization [facility] rv[facility] Address [address] [place] [address]- Care Team Providers Care Physician Office Secretary Name Role Phone Caitlyn Bowie MD Primary Care Physician [phone] Encounter [facility] Date(s): 10/08/21 - 10/15/21 [facility] [address] [place] [address]- Attending Physician: Anish Neil MD Admitting Physician: [...] oldest [Reference Range]: 1 Height 160 cm (10/08/21 9:00 AM) Weight 55.34 kg (10/08/21 9:00 AM) Oxygen Saturation [94-100 %] 98 % (10/08/21 9:00 AM) Pulse Rate [55-90 bpm] 88 bpm (10/08/21 9:00 AM) Body Mass Index [18.5-24.99] 21.62 (10/08/21 9:00 AM) Blood Pressure [90-138/55-84 mm Hg] 130/ 60mm Hg (10/08/21 9:00 AM) Mode of Delivery (Oxygen) Room air (10/08/21 9:00 AM) Blood pressure sites Arm, left (10/08/21 9:00 AM) Weight Obtained Via Patient/family state d (10/08/21 9:00 AM) Social History Social History Type Response Smoking Status Never smoker; Tobacc o user in household: No entered on: 04/05/17 Sex
--- OUTSIDE RECORDS SUMMARY | 2023-10-14 17:03 | XMS_ITS | Continuity of Care Document ---
Author Organization [facility] Address [address] [address]- Care Team Providers Care Excavating Machine Operator Name Role Phone Caitlyn Bowie MD Primary Care Physician [phone] [facility]counter [facility] Date(s): 11/09/21 - 12/09/21 [facility] [address] [address] Allergies, Adverse Reactions, Alerts Substance Reaction Severity Status ciprofloxacin Active gentamicin Active erythromycin Active penicillin 1 Active vancomycin Active ipratropium Active morphine Active barium sulfate Active iodinated radiocontrast dyes Active Voltaren Active Zithromax Active Flagyl Active Novocain Active Biaxin Active Gastrografin Active Levaquin Avocado Active Avelox Active Contrast Dye Active Mold Active Shrimp Active Avocado Active Bee Stings Active sulfa drugs Active 1Allergy testing doen 09/26 was negative [...] 08/06/20 R ecorded Influenza Virus Vaccine (oldterm) 10/14/19 Recorde d tetanus/diphtheria/pertussis, acel(Tdap) 02/28/16 Given pneumococcal [...] day, 0 Refills, Maintenance, 11/06/21 12:44:00 EDT, [place], Partialfill upon patient request if the prescription [...] Refills, Maintenance, 11/09/21 9:33:00 EDT, EC Capsule, [facility] 3, Partial fill upon patient [...]
--- OUTSIDE RECORDS SUMMARY | 2023-10-14 17:03 | XMS_ITS | Continuity of Care Document ---
Author Organization [facility] rv[facility] Address [address] [place] [address]- Care Team Providers Care Family Nurse Name Role Phone Peewee STARK, Sharon Primary Care Physician En[place] [facility] Date(s): 06/28/19 - 07/08/19 [facility] [address] [place] [address]- [facility] Attending Physician: Melissa Morrison Admitting Physician: Melissa [...] By Mouth, Daily, Dr. primo Renee at [place], # 30 tablet, 0 Refills, Maintenance, 01/26/18 [...]
--- OUTSIDE RECORDS SUMMARY | 2023-10-14 17:03 | XMS_ITS | Continuity of Care Document ---
Author Organization [facility] Address [address] [place] [address]- Care Team Providers Care Customs Brokerage Manager Name Role Phone Brennan Burnett MD Primary Care Physician En[place] [facility] [place] Date(s): 09/18/20 - 10/18/20 [facility] [address] [place] [address]- Attending Physician: Melissa Morrison Admitting Physician: Melissa Morrison Referring Physician: Melissa Morrison Referring Physician: Toyin Cm Allergies, Adverse Reactions, Alerts Substance Reaction Severity Status ciprofloxacin Active penicillin 1 Active morphine Active barium sulfate Active Voltaren Active Gastrografin Active Levaquin Avocado Active gentamicin Active erythromycin Active vancomycin Active sulfa drugs Active iodinated [...] By Mouth, Daily, Dr. primo Renee at [place], # 30 tablet, 0 Refills, Maintenance, 01/26/18 [...]
--- OUTSIDE RECORDS SUMMARY | 2023-10-14 17:03 | XMS_ITS | Continuity of Care Document ---
Author Organization [facility] Address [address] [place] [address]- Care Team Providers Care Bulk Coolers Installer Name Role Phone Caitlyn Bowie MD Primary Care Physician [facility] Date(s): 02/20/23 - 03/22/23 [facility] [address] [place], [place] [address] Allergies, Adverse Reactions, Alerts Substance Reaction Severity Status ciprofloxacin Active barium sulfate Active sulfa drugs Active gentamicin Active erythromycin Active penicillin 1 Active vancomycin Active busPIRone Feeling of throat ti ghtness Headache Dizziness Active ipratropium Active morphine Active iodinated radiocontrast dyes Active Gastrografin Active Levaquin Avocado Active Voltaren [...] Care Team Personnel Name: Val Wynne Position: [facility] Onco RN Member Role: Primary Care Nurse Name: Karen Pittman RN Position: [facility] RN Member Role: Primary Care Nurse Name: Shilpi Mattson Position: Reference Physician Member Role: Primary Care Nurse Address: Address: [address] [place] [address]- [place] Name: Toyin Doherty RN Position: [facility] RN Member Role: Primary Care Nurse Name: bEen Hernandez NP Position: [facility] Associate Professional Member Role: Lifetime Consulting Provider Address: Address: [address] [place] [address]- Name: Alejandrina Turner RN Position: [facility] RN Member Role: Primary Care Nurse Name: Zoraida Felix RN Position: [facility] RN Member Role: Primary Care Nurse Name: Daphne Hooker RN Position: [facility] RN Member Role: Primary Care Nurse Name: Nasima Gonzalez RN Position: [facility] RN Suprodney Member Role: Primary Care Nurse Name: Caitlyn Bowie MD Position: [facility] Physician - Primary Care Member Role: PCP Address: Address: [address] [place] [address]- [place] Name: Kiki Abdi RN Position: [facility] RN Member Role: Primary Care Nurse Name: Marry Reza Position: [facility] RN Member Role: Primary Care Nurse Name: Veronica Hurst [place] Position: [facility] AMB [place] Member Role: Lifetime Consulting Physician Name: Maddie Herrera RN Position: [facility] AMB Nurse Member Role: Primary Care Nurse Name: Raeagn aBptiste RN Position: [facility] RN Member Role: Primary Care Nurse Name: She Pool Position: [facility] RN Member Role: Primary Care Nurse Name: Kaila Latham RN Position: [facility] RN Member Role: Primary Care Nurse Name: Julio C Bahena Position: [facility] RN Member Role: Primary Care Nurse Name: Nasima Heredia RN Position: [facility] RN Member Role: Primary Care Nurse Name: Katherine Nixon PharmD Position: [facility] Associate Professional Member Role: Lifetime Consulting Provider Address: Address: [address] [place] [address] Name: Daphne Barton RN Position: [facility] RN Member Role: Primary Care Nurse Name: Katherine Long RN Position: [facility] RN Member Role: Primary Care Nurse Name: Norma Serrano RN Position: [facility] RN Member Role: Primary Care Nurse Name: Seven Kelly RN Position: [facility] RN Member Role: Primary Care Nurse Name: Fani Perez RN Position: [facility] RN Member Role: Primary Care Nurse Name: Hattie Brewster RN Position: [facility] RN Member Role: Primary Care Nurse Name: Yudith Rothman RN Position: [facility] Onco RN Member Role: Primary Care Nurse Name: Kelly Hernandez RN Position: [facility] RN Member Role: Primary Care Nurse Name: Parris Zuluaga RN Position: [facility] RN Member Role: Primary Care Nurse Care Team Related Persons Name: ZENAIDA FLORES Address: [place], [place] Name: TIA RIVERS Address: [place] [address] Name: JOHANN RETANA Address: [place], [place]
--- OUTSIDE RECORDS SUMMARY | 2023-10-14 17:03 | XMS_ITS | Continuity of Care Document ---
Author Organization [facility] Address [address] [place] [address]- Care Team Providers Care Nylon Operator Name Role Phone Caitlyn Bowie MD Primary Care Physician [phone] [facility]counter [facility] Date(s): 07/13/21 - 08/12/21 [facility] [address] [place] [id number] Allergies, Adverse Reactions, Alerts Substance Reaction Severity [...]
--- OUTSIDE RECORDS SUMMARY | 2023-10-14 17:03 | XMS_ITS | Continuity of Care Document ---
Author Organization [facility] Address [address] [place] [address]- Care Team Providers Care Refrigeration Houseman Name Role Phone Caitlyn Bowie MD Primary Care Physician [place] [facility] [place] 07[place]24/22 [facility] [address] [place], [place] [address] Attending Physician: Caitlyn Bowie MD Allergies, Adverse [...] Care Team Personnel Name: Val Wynne Position: [facility] Onco RN Member Role: Primary Care Nurse Name: Karen Pittman RN Position: [facility] RN Member Role: Primary Care Nurse Name: Shilpi Mattson Position: Reference Physician Member Role: Primary Care Nurse Address: Address: [address] [place] [address] [address] [place] [address]- Name: Toyin Doherty RN Position: [facility] RN Member Role: Primary Care Nurse Name: Eben Hernandez NP Position: [facility] Associate Professional Member Role: Lifetime Consulting Provider Address: Address: [address] [place] [address]- Name: Alejandrina Turner RN Position: [facility] RN Member Role: Primary Care Nurse Name: Zoraida Felix RN Position: [facility] RN Member Role: Primary Care Nurse Name: Daphne Hooker RN Position: [facility] RN Member Role: Primary Care Nurse Name: Nasima Gonzalez RN Position: [facility] RN Supv Member Role: Primary Care Nurse Name: Caitlyn Bowie MD Position: [facility] Primary Care Physician Member Role: PCP Address: Address: [address] [place] [address]- Name: Sheeba García Position: [facility] RN Member Role: Primary Care Nurse Name: Kiki Abdi RN Position: [facility] RN Member Role: Primary Care Nurse Name: Marry Reza Position: [facility] RN Member Role: Primary Care Nurse Name: Veronica Hurst MA Position: [facility] PCO RN Member Role: Lifetime Consulting Physician Name: Maddie Herrera RN Position: [facility] RN Member Role: Primary Care Nurse Name: Raegan Baptiste RN Position: [facility] RN Member Role: Primary Care Nurse Name: Svitlana Marcum RN Position: [facility] AMB Nurse Member Role: Primary Care Nurse Name: She Pool Position: [facility] RN Member Role: Primary Care Nurse Name: Kaila Latham RN Position: [facility] RN Member Role: Primary Care Nurse Name: Julio C Bahena Position: [facility] RN Member Role: Primary Care Nurse Name: Nasima Heredia RN Position: [facility] RN Member Role: Primary Care Nurse Name: Katherine Nixon PharmD Position: [facility] Associate Professional Member Role: Lifetime Consulting Provider Address: Address: [address] [place] [id number]- Name: Daphne Barton RN Position: [facility] RN Member Role: Primary Care Nurse Name: Katherine Long RN Position: [facility] RN Member Role: Primary Care Nurse Name: Norma Serrano RN Position: [facility] RN Member Role: Primary Care Nurse Name: Aurea Kelly RN Position: [facility] RN Member Role: Primary Care Nurse Name: Seven Kelly RN Position: [facility] RN Member Role: Primary Care Nurse Name: Fani Perez RN Position: [facility] RN Member Role: Primary Care Nurse Name: Yudith Rothman RN Position: [facility] RN Member Role: Primary Care Nurse Name: Parris Zuluaga RN Position: [facility] RN Member Role: Primary Care Nurse Care Team Related Persons Name: ZENAIDA FLORES Address: [place] [address] Name: TIA RIVERS Address: home [address] [place] [address] Name: JOHANN RETANA Address: [place] [address]
--- OUTSIDE RECORDS SUMMARY | 2023-10-14 17:04 | XMS_ITS | Continuity of Care Document ---
Author Organization [facility] Address [address] [place] [address]- Care Team Providers Care Utility Bill Collector Name Role Phone Caitlyn Bowie MD Primary Care Physician Encounter [facility] Date(s): 06/04/21 - 07/04/21 [facility] [address] [place], [place] [address] Allergies, Adverse Reactions, Alerts Substance Reaction Severity Status ciprofloxacin Active busPIRone Feeling of throat ti ghtness Headache Dizziness Active barium sulfate Active Zithromax Active Flagyl [...] Start Date: 07/03/21 Status: Ordered nystatin topical 912521 u/gm powder 1 application, Topically, 3 times [...]
--- OUTSIDE RECORDS SUMMARY | 2023-10-14 17:04 | XMS_ITS | Continuity of Care Document ---
Author Organization [facility] Address [address] [place] [address]- Care Team Providers Care Broadcast Designer Name Role Phone Caitlyn Bowie MD Primary Care Physician [phone] Encounter [facility] Date(s): 03/16/23 - 04/15/23 [facility] [address] [place], [place] [address] Allergies, Adverse Reactions, Alerts Substance Reaction Severity Status ciprofloxacin Active barium sulfate Active sulfa drugs Active gentamicin Active erythromycin Active penicillin 1 Active vancomycin Active busPIRone Feeling of throat ti ghtness Headache Dizziness Active ipratropium Active morphine Active iodinated radiocontrast dyes Active Voltaren Active Zithromax Active Novocain Active Gastrografin Active Levaquin Avocado Active Flagyl Active Biaxin Active Bee Stings [...] Wynne Position: [facility] Onco RN Member Role: Primary Care Nurse Name: Karen Pittman RN Position: [facility] RN Member Role: Primary Care Nurse Name: Shilpi Mattson Position: Reference Physician Member Role: Primary Care Nurse Address: Address: [address] [place] [address]- Name: Toyin Doherty RN Position: [facility] RN Member Role: Primary Care Nurse Name: Eben Hernandez NP Position: [facility] Associate Professional Member Role: Lifetime Consulting Provider Address: Address: [address] [place] [address]- Name: Alejandrina Turner RN Position: [facility] RN Member Role: Primary Care Nurse Name: Zoraida Felix RN Position: [facility] RN Member Role: Primary Care Nurse Name: Daphne Hooker RN Position: [facility] RN Member Role: Primary Care Nurse Name: Nasima Gonzalez RN Position: [facility] RN Loyda Member Role: Primary Care Nurse Name: Caitlyn Bowie MD Position: [facility] Physician - Primary Care Member Role: PCP Address: Address: [address] [place] [address]- Name: Kiki Abdi RN Position: [facility] RN Member Role: Primary Care Nurse Name: Marry Reza Position: S RN Member Role: Primary Care Nurse Name: Veronica Hurst MA Position: [facility] SALLY JORGENSEN Member Role: Lifetime Consulting Physician Name: Maddie Herrera RN Position: [facility] AMB Nurse Member Role: Primary Care Nurse Name: Raegan Baptiste RN Position: [facility] RN Member Role: Primary Care Nurse Name: She Pool Position: [facility] RN Member Role: Primary Care Nurse Name: Kaila Latham RN Position: [facility] RN Member Role: Primary Care Nurse Name: Julio C Bahena Position: [facility] RN Member Role: Primary Care Nurse Name: Nasima Heredia RN Position: [facility] RN Member Role: Primary Care Nurse Name: Katherine Nixon PharmD Position: [facility] Associate Professional Member Role: Lifetime Consulting Provider Address: Address: [address] [place] [address] Name: Daphne Barton RN Position: [facility] RN Member Role: Primary Care Nurse Name: Katherine Long RN Position: [facility] RN Member Role: Primary Care Nurse Name: Norma Serrano RN Position: [facility] RN Member Role: Primary Care Nurse Name: Seven Kelly RN Position: [facility] RN Member Role: Primary Care Nurse Name: Fani Perez RN Position: [facility] RN Member Role: Primary Care Nurse Name: Hattie Brewster RN Position: [facility] RN Member Role: Primary Care Nurse Name: Yudith Rothman RN Position: [facility] Onco RN Member Role: Primary Care Nurse Name: Kelly Hernandez RN Position: [facility] RN Member Role: Primary Care Nurse Name: Parris Zuluaga RN Position: [facility] RN Member Role: Primary Care Nurse Care Team Related Persons Name: ZENAIDA FLORES Address: [place] [address] Name: TIA RIVERS Address: [place] [address] Name: JOHANN RETANA Address: [place] [address]
--- OUTSIDE RECORDS SUMMARY | 2023-10-14 17:04 | XMS_ITS | Continuity of Care Document ---
Author Organization [facility] Address [address] [place] [address]- Care Team Providers Care Rework Operator Name Role Phone Caitlyn Bowie MD Primary Care Physician [phone] Encounter [facility] Date(s): 07/13/21 - 08/12/21 [facility] [address] [place], [place] [address] Allergies, Adverse Reactions, Alerts Substance Reaction Severity Status ciprofloxacin Active penicillin 1 Active busPIRone Feeling of throat ti ghtness Headache Dizziness Active barium sulfate Active sulfa drugs Active iodinated radiocontrast dyes Active Voltaren Active gentamicin Active erythromycin Active vancomycin Active ipratropium Active morphine Active Zithromax Active Gastrografin Active Levaquin Avocado Active Flagyl [...]
--- OUTSIDE RECORDS SUMMARY | 2023-10-14 17:04 | XMS_ITS | Continuity of Care Document ---
Author Organization [facility] Address [address] [place] [address]- Care Team Providers Care Gauge Controller Name Role Phone Caitlyn Bowie MD Primary Care Physician [phone] Encounter [facility] Date(s): 05/05/21 - 06/04/21 [facility] [address] [place], [place] [address] Attending Physician: Melissa Morrison Admitting Physician: AdmtrMelissa [...]
--- OUTSIDE RECORDS SUMMARY | 2023-10-14 17:04 | XMS_ITS | Continuity of Care Document ---
Author Organization [facility] Address [address] [place] [address]- Care Team Providers Care Lodging Manager Name Role Phone Caitlyn Bowie MD Primary Care Physician Encounter [facility] [place] Date(s): 01/29/21 - 02/28/21 [facility] [address] [place], [place] [address] Allergies, Adverse Reactions, Alerts [...] Vaccine Date Status Refusal Reason SARS-CoV-2 (COVID-19) mRNA-1278 vaccine 08/06/20 R ecorded [...] times a day, Dr. primo Renee at [place], per pt, # 30 tablet, 0 Refills, [...]
--- OUTSIDE RECORDS SUMMARY | 2023-10-14 17:04 | XMS_ITS | Continuity of Care Document ---
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 [address] [place] [id number] Encounter Diagnosis Acute hypoxemic respiratory failure(Final) - 07/29/22 COPD (chronic obstructive pulmonary disease)(Final) - 07/29/22 Congestive heart failure(Final) - 07/29/22 Severe mitral regurgitation(Discharge Diagnosis) - 08/04/22 Discharge Disposition: A-D/C Home Attending Physician: Bobby Ontiveros MD Admitting Physician: Dionne Medel MD Referring Physician: Not on Staff, Referring [...] EDT... Start Date: 09/30/21 Status: Ordered metoprolol 25 mg oral tablet 25 mg, Tablet, By Mouth, Hold for: holding parameters heart rate less than 55, systo, 08/14/22 12:00:00 EST Start Date: 08/14/22 Stop Date: 08/14/22 Status: Completed metoprolol succinate 100 mg oral capsule, extended [...] Effective Dates Health Status Clinical Service Informant Severe mitral regurgitation Discharge Diagnosis 08/04/22 Results Orders for Microbiology Reports Name Date Blood Culture (BLOOD CULTURE) 07/29/22 Microbiology Reports TEST:Blood Culture STATUS:Auth (Verified) BODY SITE: SOURCE:Blood COLLECTED DATE/TIME:07/29/22 6:55 AM Blood Culture SPECIMEN DESCRIPTION : BLOOD NOSITE SPECIAL REQUESTS : NONE CULTURE : NO GROWTH 5 DAYS. REPORT STATUS : FINAL 08/03/2022 Radiology Reports * Exam Date Time Procedure Performing Provider Status 08/12/22 11:16 AM Foot Min 3 Views Right Shiloh Baires na; Auth (Verified) Notes: (Foot Min 3 Views Right) Reason For Exam: Pain RESULT: Foot Min 3 Views Right Foot Min 3 Views Right, 3 views Reason: Pain; Clinical Question(s): Fracture. COMPARISON: Right foot radiographs dated 02/12/2018 and 12/31/2015. FINDINGS: No acute displaced fracture or dislocation. The bones are osteopenic. There is hallux valgus with mild degenerative change of the first metatarsal phalangeal joint. Joint space narrowing is seen of several of the interphalangeal joints as well as the tarsometatarsal joints. No focal soft tissue swelling. There are extensive vascular calcifications. IMPRESSION: Osteopenia with no acute displaced fracture. WSN: [id number] Ordering Physician: Henry Agarwal Dictated By: Rekha Warren MD Dictated Date/Time: 08/12/22 12:08 p Reviewed By: Rekha Warren MD Signed By: Rekha Warren MD Signed Date/Time: 08/12/22 12:08 pm Transcribed By: MART Transcribed Date/Time: 08/12/22 12:01 pm * Exam Date Time Procedure Performing Provider Status 08/11/22 2:55 PM US Extremity Non-Vas cular Right Limited Adia Nielson (Verified) Notes: (US Extremity Non-Vascular Right Limited) Reason For Exam: R leg swelling;Palpable Mass RESULT: US Extremity Non-Vascular Right Limited US Extremity Non-Vascular Right Limited Reason: Palpable Mass developed today; R leg swelling; Clinical Question(s): Other:; hematoma. The patient is on heparin. COMPARISON: None. FINDINGS: High-resolution, linear array imaging of the superficial soft tissues of the medial aspect of the right lower leg was performed in the area of the patient's new-onset palpable lump. At the site of a lump along the medial aspect of the right calf, there is a 1.5 x 0.8 x 1.2 cm complex hypoechoic nonvascular mass suggestive of a hematoma. No other sonographic abnormality is apparent. IMPRESSION: 1.5 x 0.8 x 1.2 cm hematoma along the medial aspect of the right lower leg at the site of a palpable lump. WSN: [id number] Ordering Physician: Henry Agarwal Dictated By: Vamsi Galloway MD Dictated Date/Time: 08/11/22 3:24 pm Reviewed By: Vamsi Galloway MD Signed By: Vamsi Galloway MD Signed Date/Time: 08/11/22 3:24 pm Transcribed By: MART Transcribed Date/Time: 08/11/22 3:20 pm * Exam Date Time Procedure Performing Provider Status 08/03/22 7:32 AM Chest Portable Indy Maria; Da (Verified) Notes: (Chest Portable) Reason For Exam: CHF RESULT: Chest Portable Chest Portable performed upright at 5:54 AM Reason: CHF; Clinical Question(s): CHF COMPARISON: Multiple prior chest x-rays, the most recent of which is dated 07/29/2022. FINDINGS: LINES AND TUBES: None. LUNGS AND PLEURA: Small to moderate left pleural effusion, decreased as compared to the prior examination. Partial improved aeration of the left midlung. The right lung is clear with no evidence of right pleural effusion. No pneumothorax. HEART, MEDIASTINUM AND PAULIE: Heart is normal in size. The patient is rotated to the left. No definite change in mediastinal contours. Calcification is seen in the aortic arch. BONES AND SOFT TISSUES: No acute abnormality. IMPRESSION: Decreasing left pleural effusion with improving aeration of the left midlung. WSN: [id number] Ordering Physician: Estiven Adames Dictated By: Rekha Warren MD Dictated Date/Time: 08/03/22 10:59 a Reviewed By: Rekha Warren MD Signed By: Rekha Warren MD Signed Date/Time: 08/03/22 10:59 am Transcribed By: MART Transcribed Date/Time: 08/03/22 10:58 am * Exam Date Time Procedure Performing Provider Status 07/30/22 1:39 PM US Doppler Ext Lower Venous Left Na Grider; Auth (Verified) Notes: (US Doppler Ext Lower Venous Left) Reason For Exam: check for DVT;Pain/Tenderness Extremities RESULT: US Doppler Ext Lower Venous Left US Doppler Ext Lower Venous Left Reason: Pain Tenderness Extremities; check for DVT; Clinical Question(s): Thrombus COMPARISON: None IMAGING TECHNIQUE: Ultrasound of the veins from the groin through the calf was performed using grayscale, color, and spectral Doppler ultrasound assessing for complete compressibility and normal flowcharacteristics. FINDINGS: Common femoral vein: Patent. No thrombosis. Femoral vein: Patent. No thrombosis. Popliteal vein: Patent. No thrombosis. Gastrocnemius veins: The visualized portions are patent without evidence of thrombosis. Peroneal veins: The visualized portions are patent without evidence of thrombosis. Posterior tibial veins: The visualized portions are patent without evidence of thrombosis. Contralateral common femoral vein: Patent. No thrombosis. OTHER FINDINGS: IMPRESSION: No evidence of deep venous thrombosis. WSN: [id number] Ordering Physician: Robert Nuñez Dictated By: Brianna Lawton MD Dictated Date/Time: 07/30/22 1:59 pm Reviewed By: Brianna Lawton MD Signed By: Brianna Lawton MD Signed Date/Time: 07/30/22 1:59 pm Transcribed By: MART Transcribed Date/Time: 07/30/22 1:58 pm * Exam Date Time Procedure Performing Provider Status 07/29/22 7:09 AM Chest Portable Ludy Ellison; Auth (Verified) Notes: (Chest Portable) Reason For Exam: Shortness of Breath RESULT: Chest Portable Chest Portable HX OF PRESENT ILLNESS: SOB. pt woke up to use the restroom, became SOB. on 2-3L nc at home. pt states HR was elevated and 02 dropped to 90%; Reason: Shortness of Breath; Clinical Question(s): CHF / CHF COMPARISON: 06/27/2022 FINDINGS: LINES AND TUBES: None. LUNGS AND PLEURA: Diffusely increased reticular interstitial markings with Elmer B-lines at the right lung base. Hazy groundglass opacity throughout the right lung. Moderate left pleural effusion with adjacent atelectasis. Trace right pleural effusion. No pneumothorax. HEART, MEDIASTINUM AND PAULIE: Cardiac silhouette is obscured by the left pleural effusion.. BONES AND SOFT TISSUES: No acute abnormality. IMPRESSION: Findings are likely due to moderate pulmonary edema with left larger than right pleural effusions. Viral or other atypical pneumonia is also possible. WSN: [id number] Ordering Physician: Vamsi Holman Dictated By: Andre Neumann MD Dictated Date/Time: 07/29/22 7:32 am Reviewed By: Andre Neumann MD Signed By: Andre Neumann MD Signed Date/Time: 07/29/22 7:32 am Transcribed By: MART Transcribed Date/Time: 07/29/22 7:30 am Vital Signs Most recent to oldest [Reference Range]: 1 2 3 Height 160.02 cm (08/14/22 2:05 PM) 160.02 cm (08/14/22 7:41 AM) 160.02 cm (08/13/22 2:34 PM) Weight 51.7 kg (08/14/22 10:16 AM) 51.7 kg (08/14/22 5:29 AM) 56.4 kg (08/13/22 5:17 AM) Oxygen Saturation [94-100 %] 99 % (08/14/22 2:05 PM) 99 % (08/14/22 7:41 AM) 100 % (08/14/22 2:00 AM) Pulse Rate [55-90 bpm] 88 bpm (08/14/22 2:05 PM) 89 bpm (08/14/22 12:58 PM) 68 bpm (08/14/22 7:41 AM) Body Mass Index [18.5-24.99 kg/m2] 22.46 kg/m2 (08/11/22 3:03 AM) 21.95 kg/m2 (08/07/22 2:59 AM) 21.75 kg/m2 (08/05/22 8:37 AM) Blood Pressure [90-138/55-84 mm Hg] 112/57mm Hg (08/14/22 2:05 PM) 112/63mm Hg (08/14/22 12:58 PM) 107/52mm Hg (08/14/22 7:41 AM) Respiratory Rate [16-30 br/min] 18 br/min (08/14/22 2:05 PM) 18 br/min (08/14/22 7:41 AM) 18 br/min (08/14/22 2:00 AM) Temperature [96.8-100.4 DegF] 97.2 DegF (08/14/22 2:05 PM) 97.3 DegF (08/14/22 7:41 AM) 97.2 DegF (08/14/22 2:00 AM) Liters per Minute 2 L/min (08/11/22 3:03 AM) 2 L/min (08/10/22 7:54 PM) 2 L/min (08/10/22 4:02 PM) Mode of Delivery (Oxygen) Room air (08/14/22 2:05 PM) Room air (08/14/22 7:41 AM) Room air (08/14/22 2:00 AM) Blood pressure sites Arm, right (08/14/22 2:05 PM) Arm, right (08/14/22 7:41 AM) Arm, left (08/14/22 2:00 AM) Temperature Route Temporal (08/14/22 2:05 PM) Temporal (08/14/22 7:41 AM) Temporal (08/14/22 2:00 AM) Dry Weight 57.1 kg (07/30/22 6:19 PM) 60 kg (07/30/22 5:15 AM) 60 kg (07/29/22 7:32 PM) Weight Obtained Via Bed scale (08/13/22 5:17 AM) Bed scale (08/12/22 5:30 AM) Bed scale (08/11/22 11:12 PM) Dry Weight Obtained Via Patient/family s tated (07/29/22 4:59 AM) Social History Social History Type Response Smoking Status Never smoker; Tobacc o user in household: No entered on: 04/05/17 Sex Note * Mami Vicente RN: PERFORM Event Display: Discharge/Transfer Note Hospital Authored Date: [id number] Nursing Discharge Note Entered On: 08/14/2022 18:25 EST Performed On: 08/14/2022 18:25 EST by Mami Vicente RN Nursing Discharge Note 2 Discharge Time : 08/14/2022 18:00 EST Discharge Level of Care at Discharge : Inpatient Rehab Facility/Unit Discharge Nursing Homes/Rehab Facilities : [facility] Patient Left Unit Via : Ambulance Patient Accompanied Off Unit with : Ambulance/Chair Van Personnel Handover Given to Transport Personnel : Yes DC Instructions Provided & Signed by Pt : Yes Patient Understands D/C Instructions : Yes Verbalized Understanding of D/C Plan By : Patient Patient Instructions Discharge Signed : Yes Did Pt have Specialty Bed or Wound Vac : No Mami Vicente RN - 08/14/2022 18:25 EST * Bobby Ontiveros MD: PERFORM Event Display: Discharge/Transfer Note Hospital Authored Date: [id number] Patient: ??CINDA WATSON ? Age:??77 Years?Sex:??Female?:??1945?? Patient Information Discharge Location: M7 Primary Care Physician: Caitlyn Bowie MD Admit Date/Time: 07/29/22 10:12 Discharge Disposition Discharge Disposition: [facility] Facility/Rehab Discharge Diagnosis Congestive heart failure (I50.9) Severe mitral regurgitation (I34.0) Acute hypoxemic respiratory failure (J96.01) COPD (chronic obstructive pulmonary disease) (J44.9) Embolism (I74.9) Hypokalemia (E87.6) Left leg pain (M79.605) Antiphospholipid syndrome Anxiety COPD (chronic obstructive pulmonary [...] a day elderberry (elderberry oral liquid)?15?Milliliter?By Mouth?Daily Enoxaparin?90?Milligram?Subcutaneous Injection?Daily?STOP ONCE INR IS 1.5 EPINEPHrine (EPINEPHrine 0.3 mg injectable solution)?0.3?Milligram?Intramuscular?Once?as needed?Anaphylactic Reaction Ferrous Gluconate (ferrous gluconate 324 mg oral tablet)?1?tab(s)?324?Milligram?By Mouth?Daily?WITH BREAKFAST Fluticasone-Salmeterol (Advair HFA 230 mcg / 21 mcg)?2?puff(s)?Inhalation?2 times a day Levothyroxine (levothyroxine 25 mcg (0.025 mg) oral capsule)?1?capsule?25?Microgram?By Mouth?Daily?Bay through Monday Levothyroxine (levothyroxine 50 mcg (0.05 mg) oral capsule)?1?capsule?50?Microgram?By Mouth?Daily?Monday & Monday's Meclizine (meclizine 25 mg oral tablet)?See Instructions?as needed?as needed for dizziness?can take ??extra 25mg for up to four per day Metoprolol (metoprolol succinate 100 mg oral capsule, extended release)?1?capsule?100?Milligram?By Mouth?Daily Montelukast (Singulair 10 mg oral tablet)?10?Milligram?1?tablet?By Mouth?Daily inPM?Dr. Kelly Multivitamin (B-Complex SR)?1?tab(s)?By Mouth?Daily Omeprazole (omeprazole 40 mg oral enteric coated capsule)?1?capsule?40?Milligram?By Mouth?Daily?as needed?as needed PredniSONE?5?Milligram?By Mouth?Daily Rosuvastatin (rosuvastatin 10 mg oral tablet)?2?tab(s)?20?Milligram?By Mouth?Every Monday, Monday and Monday Trazodone (traZODone 50 mg oral tablet)?100?Milligram?2?tablet?By Mouth?Daily at bedtime?Dr. Kelly Warfarin (warfarin 1 mg oral tablet)?See Instructions?take 1-3 ??tablets By Mouth Daily as directed by the anticoagulation clinic ? Allergies Allergies ?(Active and Proposed Allergies Only) [...] Unknown severity, Onset: Unknown) ? Future Appointments Monday 1:45 PM EST ?? With: Rabia STARK, [facility] [address] [place] [address]- Hospital Course 77-year-old pleasant female patient with history of [...] influenza A with COPD exacerbation at [facility] followed by admission at [facility] where she underwent left heart cath that showed concern for Takotsubo cardiomyopathy and severely pulmonary hypertension per cath notes who presents again and found to have possible pneumonia and volume overload/CHF exacerbation. She is managed with IV diuresis. She evaluated by cardiac surgery and felt to be extremely high risk for surgical mitral valverepair, was evaluated by cardiology for??mitral clip repair. Due to prior difficulty with passing ESME scope GI??eval done and EGD done. On 08/10: MV clipping??performed by??Dr. Camarillo. Pateint toleratedthe procedure well.?? Patient is feeling clinically much better. ??She is saturating well on room air??at rest and on exertion.?PT recommended rehab.?[facility]??and feels ready for discharge.?? INR now 1.3.??Discussed with Hematology curbside.Warfarin and lovenox bridge. Lovenox 1.5mg/kg (i.e 90mg) given at 5pm. CHECK INR TOMORROW AM AT REHAB. IF INR IS??<1.5 GIVE LOVENOX AT 5PM??DAILY; SOPT LOVENOX IF INR IS >1.5.?? Check INR everyday??until??it is 1.5 then??every 2 or 3 days??until??warfarin dose??adjusted. Follow-up with cardiology,??neurology,??PCP closely on discharge. ? Assessment and plan while in the hospital ?? Acute on chronic diastolic CHF exacerbation Severe mitral regurgitation Moderate to severe tricuspid regurgitation Takotsubo cardiomyopathy Severe pulmonary HTN( on 2L continuously at home with 3L on activity per patient) Chronic hypoxic respiratory failure Metabolic alkalosis History of CAD/NSTEMI???nonocclusive cath on 06/21 Hyperlipidemia, history of allergy to iodinated contrast ?? > ??Cardiac cath on 06/21:non-obstructive; 40-50% mid LAD stenosis - similar to previous cath > ??Patient diagnosed with Takotsubo cardiomyopathy but the per cath notes from previous admission and plan is to have patient to f/u with her mill stenciler Dr. Kelly for further management, such as RHC and vasodilator reactivity testing. > ??she was referred to Dr. Kerwin Krishnamurthy for further discussion > ??Patient stated that her sildenafil was stopped by her bottling attendant so at the moment she is not taking any sildenafil. > ??presents with worsening SOB on exertion and found to have moderate pulmonary edema left side> right side. > ??Echo done which showed moderate-severe mitral regurgitation, PAP 65mmHG. > ??08/01 >>??prior provider??discussed with patient bottling attendant Luis Eduardo Barahona ( [place]) about her worsening MR. No sildenafil in view of hypotension and valvular regurgitation. Dr. Cadet requested to have [facility] cardiology evaluation for possible ESME , for better evaluation of her MR. ??[facility] cardiology on board and recommend to increase lasix to 40 mg IVP BID on 08/01/22. 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 The mitral regurgitation varied from mild to markedly severe without change in BP (although following administration of phenylephrine). ??Moderate to severe tricuspid regurgitation ??Preserved by ventricular systolic function ??Severe aortic atherosclerosis . > ??CTS on board and recommendations are appreciated. CTS team has been discussing with patient and family regarding MR intervention. CTS team suggest ABG and hematology consult.? > Patient had tele communication with Dr. Kerwin Menjivar ( [facility] mill stenciler) on 08/02/22,??prior provider??was there in the room and plan of care was discussed . Dr. Menjivar recommends continue diuresis and mitral valve intervention. Dr. Menjivar ( Direct cell phone : [phone]) can be reachedfor further discussion if needed. > ??08/03>> Hematology consulted to assist in management of her ALPS INR goal and to evaluate for prothrombotic risk of prosthetic valve for MVR in future. > 08/10: MV clipping??performed by??Dr. Camarillo, mild??groin??site bleeding??in PACU which resolved??prior to transfer Plan: -Holding further Lasix??since 08/08. Cardiology eval done and no need for diuresis currently. -Continue statin and metoprolol,??uptitrated as per Cardiology on??08/11 -She is not on aspirin given platelet dysfunction and easy bleeding while being on Coumadin. -Monitor O2 saturation??->now on room air. No desaturation and O298 after ambulation. -Maintain on AC,??see below ?? Concern for dysphagia/difficulty passing ESME probe Mild esophageal stricture Mild hiatal hernia No significant dysphagia symptoms but patient did report globus sensation on occasion, reportedly had difficulty passing ESME probe. Cardioology would like a barium esophagram performed before attempting valve repair because of reported difficulty with ESME, which was ordered. However, she has a significant history of multiple allergies including barium contrast allergy, discussed with Radiology who recommended to involve GI; GI was consulted and they have agreed to perform EGD to further evaluate,??which has been done??revealing no significant findings on 08/05??and she was cleared for??ESME next week. -No specific intervention required from GI standpoint -If further bleeding??we will reconsult GI and consider??lower??endoscopy as well ?? Pneumonia:??Possible pneumonia on imaging, came in with elevated white count ( ? steroid induced aspatient is also on steroid for COPD exacerbation ) Procalcitonin : 0.09 suggestive of viral origin. Patient prefers to get antibiotics for her pneumonia and has completed 5 days ( 07/29-08/02) ?? -Continue to monitor clinically, hold further empiric antibiotics for now -Monitor VS, fever curve ?? History of antiphospholipid antibody syndrome History of VTE History of platelet dysfunction > ??Patient follows with Tramaine Agosto from [place] , as well as Dr. Hgoan from [facility]. > ?Patient's goal 1.5-2. Patient takes around 1-3 mg of Coumadin daily which has been resumed, follows up with [facility] Coumadin clinic. > Hematology consulted to assist in management of her ALPS INR goal and to evaluate for prothrombotic risk of prosthetic valve for MVR in future. > 08/10:??Started back??on??heparin drip and warfarin postprocedure. Warfarin started 3 mg. INR now 1.3.?? Discussed with Hematology curbside. Warfarin and lovenox bridge. Lovenox 1.5mg/kg (i.e 90mg) given at 5pm. CHECK INR TOMORROW AM AT REHAB. IF INR IS??<1.5 GIVE LOVENOX AT 5PM??DAILY; SOPT LOVENOX IF INR IS >1.5 ?? Right leg hematoma Noted??postop, she denies any??trauma, confirmed with ultrasound Patient??is monitored??on a heparin drip and??no worsening of hematoma for the past 3 days. -Wild wrap,??cold compress as needed, Lidoderm patches ?? Right foot pain Pain is ongoing throughout hospitalization and??limits her ambulation somewhat, patient has been??treated frequently??with steroids, she denies any??trauma to the foot but is at risk for osteoporoticfracture Xray: Osteopenia with no acute displaced fracture. pain management ?? COPD with exacerbation:??improving - no wheezing noted and will taper down now on her home dose 5mg PO daily ??- albuterol 4 times per day, stating allergic to ipratropium. ??-??advair? IIIa lung cancer status post left lower lobe lobectomy and neoadjuvant chemoradiation, radiation pulmonary fibrosis Chronic/stable ?? Hypothyroidism ??-Continue levothyroxine as ordered above ?? Hypertension :??continue metoprolol 25 twice daily ?? Anxiety > Psychiatry was consulted during previous admission and recommended starting mirtazapine which patient reports that she has not started and wants to follow- up outpatient psychiatry before making a decision; discussed again 08/06 and no interest in starting antidepressants at present; patient continues to request increased doses of??Valium, which I would not start??as??she will not have someoneto prescribe them upon discharge > ??Patient seen by psychiatry 08/06, they??do not recommend increasing her Valium and instead??recommended as needed trazodone to be added to her??usual??trazodone, also recommend to??consider mirtazapine which patient is refusing at this time; she was given some??brief CBT??instruction from psyc hiatry ?? -Continue??home??dose??Valium??as needed -Patient encouraged to do CBT interventions as she was??instructed by psychiatry and to follow-up with outpatient provider??once stabilized -Appreciate??Psychiatry input,??patient was given some??techniques??to help with her anxiety -Consider??addition of mirtazapine, continues to refuse, can address as outpatient -Continue home dose trazodone and added on??as needed trazodone twice daily for??anxiety per Psychiatry recs ?? Deconditioning Patient has been in hospital for quite some time now??and is frail to begin with -PT eval requested??and anticipation of discharge in the next couple days Objective Vital Signs?? Temperature: 97.2 DegF (08/14/22 14:05:00) Temperature Route: Temporal (08/14/22 14:05:00) Pulse Rate: 88 bpm (08/14/22 14:05:00) Respiratory Rate: 18 br/min (08/14/22 14:05:00) Systolic Blood Pressure: 112 mm Hg (08/14/22 14:05:00) Diastolic Blood Pressure: 57 mm Hg (08/14/22 14:05:00) Blood pressure sites: Arm, right (08/14/22 14:05:00) Mean Arterial Pressure: 75 mm Hg (08/14/22 14:05:00) Pulse Pressure: 55 mm Hg (08/14/22 14:05:00) Oxygen Saturation: 99 % (08/14/22 14:05:00) Mode of Delivery (Oxygen): Room air (08/14/22 14:05:00) Early Warning Score: 2 (08/14/22 14:05:51) ? . Physical Exam ??Constitutional: Alert, in no acute distress. ?Head EENT: PERRL.??NCAT.?Neck: Supple. No obvious LAD. ?Respiratory: CTAB. No use of accessory muscles. ?Cardiovascular: S1S2 present. No obvious JVD. ?Gastrointestinal: Abdomen soft, non-tender, non-distended. Bowel sounds present. ?Genitourinary: No CVA tenderness. Genital exam deferred. ?Extremities: No lower extremity pitting??edema. No cyanosis or clubbing. ??Right leg??swelling on gricelda-medial calf??appears to be hematoma, conformed with??ultrasound R forefoot??TTP without obvious point tenderness ?Neurologic: Alert, generally appropriate. Speech normal. No gross focal neurological deficits. Surgical Procedures Gastroscopy (EGD) with Biopsy 08/05/2022 09:29 Pending Results Add On Lab Order ordered on 07/30/2022 Add On Lab Order ordered on 08/09/2022 CBC ordered on 08/05/2022 Hold Gel Top Tube ordered on 07/29/2022 INR ordered on 08/10/2022 PTT ordered on 08/15/2022 RBCs for Surgery ordered on 08/09/2022 Patient Education Titles COPD and Heart Disease?? Chronic Lung Disease:??Controlling Stress?? Heart Failure: Making Changes to Your Diet?? Heart Failure: Tracking Your Weight?? Discharge Instructions for Heart Failure?? Surgery MitraClip Discharge Instruction?? Follow-Up Appointments Added Follow Up ?Time Frame ?Comments Rabia STARK, Leno?4 to 5 weeks?Office will be in contact for follow up ECHO?09/05/2022 10:00 [place] [place]?09/14/2022 13:45 [facility] Diet: Cardiac diet Activity: Ambulate with assistance ??3 times a day ??unless otherwise specified Code Status: ?? Full Resuscitation Prognosis: Fair Home Health Face to Face ^HomeHealthFTF Results Discharge Labs BLOOD BANK Blood Type A Positive ()?? 08/09/2022 00:19 Antibody Screen Negative ()?? 08/09/2022 00:19 RBC Unit ID [id number] ()?? 08/07/2022 14:09 RBC Available RE ()?? 08/07/2022 14:09 ?? BLOOD COUNT & DIFF WBC 10.2 k/mm3 ()?? 08/14/2022 07:10 RBC 3.13 m/mm3 (Low)?? 08/14/2022 07:10 Hgb 10.0 Gm/dL (Low)?? 08/14/2022 07:10 Hct 31.0 % (Low)?? 08/14/2022 07:10 MCV 99.0 femtoliters ()?? 08/14/2022 07:10 MCH 31.9 pg ()?? 08/14/2022 07:10 MCHC 32.3 g/dL (Low)?? 08/14/2022 07:10 Platelet Count 223 k/mm3 ()?? 08/14/2022 07:10 RDW-SD 50.9 femtoliters (High)?? 08/14/2022 07:10 MPV 11.4 femtoliters ()?? 08/14/2022 07:10 Nucleated RBC (Automated) 0.0 #/100 WBC'S ()?? 08/14/2022 07:10 Abs. NRBC 0.0 k/mm3 ()?? 08/14/2022 07:10 Abs. Neut 14.9 k/mm3 (High)?? 07/29/2022 06:55 Abs. Lymph 2.2 k/mm3 ()?? 07/29/2022 06:55 Abs. [place] 1.0 k/mm3 (High)?? 07/29/2022 06:55 Abs. Eo 0.1 k/mm3 ()?? 07/29/2022 06:55 Abs. Baso 0.1 k/mm3 ()?? 07/29/2022 06:55 Neut % 80.7 % (High)?? 07/29/2022 06:55 Lymph % 11.7 % (Low)?? 07/29/2022 06:55 [place] % 5.2 % ()?? 07/29/2022 06:55 Eos % 0.6 % ()?? 07/29/2022 06:55 Baso % 0.6 % ()?? 07/29/2022 06:55 Imm Gran 1.2 % ()?? 07/29/2022 06:55 Abs. Imm Gran 0.2 k/mm3 ()?? 07/29/2022 06:55 ?? BLOOD GAS pH 7.50 (High)?? 08/08/2022 10:30 pCO2 41 mm Hg ()?? 08/08/2022 10:30 pO2 126 mm Hg (High)?? 08/08/2022 10:30 Bicarbonate, Estimated 32 mmol/L (High)?? 08/08/2022 10:30 Specimen Type - Blood Gas ARTERIAL ()?? 08/08/2022 10:30 Percent O2 (FIO2) 24 ()?? 08/08/2022 10:30 ?? CARDIAC Nt-Probnp 421 pg/mL ()?? 08/09/2022 07:23 High Sensitivity Troponin (HSTnT) 35 ng/L (High)?? 07/30/2022 09:34 ?? CHEM GENERAL Sodium 139 mmol/L ()?? 08/12/2022 07:08 Potassium 3.9 mmol/L ()?? 08/12/2022 07:08 Chloride 98 mmol/L ()?? 08/12/2022 07:08 Bicarbonate Level 30 mmol/L (High)?? 08/12/2022 07:08 Anion Gap 11 ()?? 08/12/2022 07:08 Glucose Level 93 mg/dL ()?? 08/12/2022 07:08 Glucose, POC 102 mg/dL (High)?? 08/10/2022 04:24 BUN 12 mg/dL ()?? 08/12/2022 07:08 Creatinine-Blood 0.8 mg/dL ()?? 08/12/2022 07:08 Estimated GFR Creatinine 74 ML/MIN/1.73 M2 ()?? 08/12/2022 07:08 Calcium 10.0 mg/dL ()?? 08/12/2022 07:08 Calcium, Ionized pH Corrected 1.32 mmol/L ()?? 07/29/2022 06:55 Phosphorus 2.4 mg/dL (Low)?? 08/04/2022 05:43 Magnesium 2.4 mg/dL (High)?? 08/12/2022 07:08 ?? COAG INR 1.3 (High)?? 08/14/2022 07:10 Protime (PT) 13.2 seconds (High)?? 08/14/2022 07:10 APTT 62.1 seconds (High)?? 08/13/2022 07:15 ? HEME OTHER Hold Lavender Top SPECIMEN DISCARDED AFTER 24 HOURS. ()?? 07/29/2022 20:27 Hold Blue Top SPECIMEN DISCARDED AFTER 4 HOURS. ()?? 07/29/2022 06:55 ?? MISC. CHEMISTRY Procalcitonin 0.02 ng/mL ()?? 08/06/2022 05:14 Hold Gel Top SPECIMEN DISCARDED AFTER 1 WEEK ()?? 08/13/2022 07:15 ?? VIROLOGY Adenovirus by PCR NEGATIVE ()?? 08/07/2022 04:43 Coronavirus 229E by PCR (not COVID-19) NEGATIVE ()?? 08/07/2022 04:43 Coronavirus HKU1 by PCR (not COVID-19) NEGATIVE ()?? 08/07/2022 04:43 Coronavirus NL63 by PCR (not COVID-19) NEGATIVE ()?? 08/07/2022 04:43 Coronavirus OC43 by PCR (not COVID-19) NEGATIVE ()?? 08/07/2022 04:43 Human Metapneumovirus by PCR NEGATIVE ()?? 08/07/2022 04:43 Rhinovirus/Enterovirus by PCR NEGATIVE ()?? 08/07/2022 04:43 Influenza A by PCR NEGATIVE ()?? 08/07/2022 04:43 Influenza B by PCR NEGATIVE ()?? 08/07/2022 04:43 Parainfluenza 1 by PCR NEGATIVE ()?? 08/07/2022 04:43 Parainfluenza 2 by PCR NEGATIVE ()?? 08/07/2022 04:43 Parainfluenza 3 by PCR NEGATIVE ()?? 08/07/2022 04:43 Parainfluenza 4 by PCR NEGATIVE ()?? 08/07/2022 04:43 RSV by PCR NEGATIVE ()?? 08/07/2022 04:43 Bordetella Pertussis by PCR NEGATIVE ()?? 08/07/2022 04:43 Chlamydophila Pneumoniae by PCR NEGATIVE ()?? 08/07/2022 04:43 Mycoplasma Pneumoniae by PCR NEGATIVE ()?? 08/07/2022 04:43 COVID-19 by RT-PCR NEGATIVE ()?? 08/14/2022 12:20 COVID-19 PCR Specimen Source NASAL ()?? 08/11/2022 13:30 COVID-19 PCR Result NEGATIVE ()?? 08/11/2022 13:30 COVID-19 (SARS-CoV-2) by PCR NEGATIVE ()?? 08/07/2022 04:43 Bordetella Parapertussis by PCR NEGATIVE ()?? 08/07/2022 04:43 ? Procedures(s) ?Cardiac Cath Procedure ?? 08/10/2022 08:09??by Rabia STARK, [facility] ? 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 She was admitted to hospital again on August 06 with acute heart failure. She was noted to have normal left ventricular systolic function by echo. Transthoracic echo showed severe MR. This is significantly worse compared to before. She also had undergone ESME which showed thickened mitral valve leaflets and cords. Evidence of rheumatic mitral valve disease but also restricted P2 and overriding of the same causing severe mitral regurgitation towards the medial aspect of A2/P2. Mitral valve area was just less than 4 cm2. She was seen by cardiac surgery and was felt to be extremely high risk for surgical mitral valve repair or replacement. Therefore she was scheduled for MitraClip procedure using general anesthesia and ESME guidance. ?? Procedure Data ?? Procedure Date Date: 08/10/2022Start: 08:09End: 10:32 ?? The procedure was explained in detail to the patient. Risks, complications and alternative treatments were reviewed. Written consent was obtained. ?? Entry Locations ?- Retrograde Percutaneous access was performed through the Left Femoral ?artery. A 4 Fr sheath was inserted. This was exchanged for a 6 Fr sheath. ?Hemostasis was successfully obtained using Perclose ProGlide. ?? - Antegrade Percutaneous access was performed through the Right Femoral ?vein. A 4 Fr sheath was inserted. This was exchanged for a 5 Fr sheath. ?The sheath was exchanged again for a 8 Fr sheath. Hemostasis was ?successfully obtained using Perclose ProGlide. ?? - Antegrade Percutaneous access was performed through the Left Femoral vein. ?A 4 Fr sheath was inserted. This was exchanged for a 5 Fr sheath. ?Hemostasis was successfully obtained using Sheath sutured in place. ?? Venous access obtained. ?? Procedure Medications ?- Lidocaine 2% S.C. Left groin 10 ml. ?? - Lidocaine 2% S.C. Right groin 10 ml. ?? Sedation: A separate physician or qualified healthcare provider administered the sedation services. Refer to separate documentation in patient's record. ?? Contrast Material ?- Omnipaque 5 ml ?? - Omnipaque 5 ml ?? Diagnostic Catheters ?- [id number] DxTERITY DIAGNOSTIC CATHETERwas used for: selective ?angiography. ?? - [id number] MPA DxTERITY DIAGNOSTIC CATHETERwas used for: selective ?angiography. ?? Fluoroscopy Time: PCI: 17:12 minutes. Total: 17:12 minutes. ?? Fluoroscopy Dose: PCI: 190 mGy. Total: 190 mGy. ?? Dose Area Product:PCI: 15353 mGy/cm2. Total: 58543 mGy/cm2. ?? Dose Area Product:PCI: 2783.8 ??Gy/m2. Total: 2783.8 ??Gy/m2. ?? Procedure Narrative ?? Patient was taken to cardiac Brass Finisher and was prepped and draped using ??sterile precautions. ??Using ultrasonic and fluoroscopic guidance left common femoral arterial ??access was obtained and a 6 Bermudian short sheath was inserted. ??Using similar technique right common femoral venous access was obtained and ??a 7 Bermudian sheath was inserted. ??We also got access of left common femoral artery and a 5 Bermudian sheath was ??inserted. ??General anesthesia was administered. Endotracheal intubation was performed. ??ESME probe was inserted by Dr. Wolf. ??2 Perclose devices were used to preclosed right common femoral venous access ??site. ??7 Bermudian sheath was reinserted. ??We then exchanged for 8.5 Bermudian Derby transseptal sheath which was ??delivered over guidewire to superior vena cava. ??The sheath was dropped to fossa ovalis. We oriented the puncture site in the ??inferoposterior segment of the fossa. ??Height from this area to mitral valve coaptation site was just less than 4 ??cm. ??Using radiofrequency wire we performed transseptal puncture and the catheter ??with dilator were advanced to left atrium. Mean LA pressure was 8 mmHg with ??a V wave of 12-15 mmHg. ??Additional heparin bolus was given. During the procedure ACT was maintained ??above 300 seconds. ??The dilator was taken out. ??We then exchanged for a Amplatz Super Stiff guidewire over 5 Bermudian ??multipurpose catheter. ??The wire and catheters were already in place in the left superior pulmonary ??vein. Once the guidewire was in the transseptal sheath was pulled out. Right ??common femoral venous access site was dilated using 16 Bermudian and then 20 ??Bermudian dilator. ??24 Bermudian MitraClip steerable guide was then advanced using fluoroscopic ??guidance over a stiff guidewire. ??Interatrial septum was easily crossed with a dilator and guiding sheath. The ??dilator and wire were then taken out. ??We decided to use XT MitraClip which was prepped using standard technique ??and advanced over the guiding sheath in left atrium. ??Using ESME and fluoroscopy guidance the clip was placed right above the ??mitral valve. It was somewhat difficult because of relatively low height. ??Was the clip was respiratory placed about the mitral leaflet across the ??valve and advanced the clip in LV. ??We oriented appropriately and then grasped medial aspect of . The clip ??was tightened and MR was significantly reduced. By ESME mean gradient was ??unchanged at 3 mmHg. ??Pulmonary venous flow was reversed. ??MR severity was mild and at best moderate by color Doppler. We were quite ??satisfied with the result and the clip was released. ??Mean LA pressure was measured which was unchanged. However V wave was ??decreased to 10 mmHg. ??Mean RA pressure was measured after withdrawing the steerable guide and RA. ??It was 1 to 2 mmHg. ??We pulled the guiding sheath out and Perclose sutures were tightened for ??satisfactory hemostasis. ??Left common femoral arterial access site was also closed using a 6 Bermudian ??Perclose device. ??Venous sheath was sutured in place to be pulled later. ??General anesthesia was reversed. She was extubated in the lab and was ??neurologically unchanged. Hemodynamically she was stable. ?? She tolerated the procedure well. ??Total contrast used: None. ??Immediate complications: None ?? Hemodynamics ?? Condition: Rest ?? O2 Consumption: Estimated: 164.15Heart Rate: 83 bpm ?? Pressures (mmHg) +-----+ + !Site !Pressure ! +-----+ + !AO !130/44 (81)! +-----+ + !LA !8/11 (6) ! +-----+ + !LA !16 (8) ! +-----+ + !RA !4/ (1) ! +-----+ + ?? Shunts ?? Oxygen Values ?? O2 Capacity 155.04 O2 Consumption 164.15 ?? Conclusions ?? Interventional Summary ?? Preprocedural diagnosis: ??1. Severe mitral regurgitation, due to possible rheumatic/degenerative ??mitral valve disease, involvement of A2/P2 in medial aspect. ??2. Acute decompensated CHF with preserved LV function. NYHA class IV ??3. Moderate mostly precapillary pulmonary hypertension. PA 66/24 (38) mmHg. ??4. History of COPD, obstructive sleep apnea, on BiPAP and oxygen at home and ??pulmonary fibrosis. ??5. Mild to moderate coronary disease ??6. Antiphospholipid antibody, history of PE/DVT ??7. History of stage IIIa lung cancer, status post left lower lobectomy, ??neoadjuvant chemoradiation ??8. Very high risk for surgical mitral valve repair or replacement by STS ??criteria. ?? Procedures: ??1. Trans septal puncture using Bulb RF wire. ??2. Left and right heart catheterization and hemodynamics. ??3. Transcatheter mitral valve repair using a single XT Mitralclip via right ??common femoral venous access ??4. Transesophageal echocardiography before, during and after mitral clip ??placement ??5. Precose closure of right common femoral venous and left common femoral ??arterial access sites. ?? Procedural findings: ??1. Thickened mitral valve leaflets, restricted and mildly prolapsed P2 ??segment of posterior leaflet with severe mitral regurgitation. Mitral valve ??area 3.9 cm2. Mean mitral valve gradient 3 mmHg by ESME. Pulmonary venous ??doppler flow showed systolic flow blunting and mild reversal. ??2. Relatively normal left atrial pressure with mean of 8 mmHg and a V wave ??of up to 15 mmHg. ??3. After successful MitraClip repair, mild to moderate mitral regurgitation ??was noted. Mean mitral valve gradient 3 mmHg. Pulmonary venous doppler flow ??normalized after MitraClip placement. ??4. Post MitraClip left atrial mean pressure 8 mmHg with a V wave of 10 mmHg. ??Mean RA pressure 2-3 mmHg. ?? liquor gallery operator: ??Leno [place] MD ?? Transesophageal veneer clipper helper: ??Stef Wolf MD. ?? Anesthesia: General ?? Interventional Recommendations ?? 1. Close monitoring in telemetry unit. ??2. Resume warfarin this evening if groin sites are stable. ??3. Continue medications including metoprolol XL 25 mg twice a day. ??4. Transthoracic echocardiogram in a.m. ??5. Follow-up with me in a month in valve clinic. ??6. Follow-up with Dr. Ware, primary bottling attendant as scheduled. ?? ACC Diagnostic Recommendations: Other cardiac therapy without CABG or PC ?GG EGD ?? 08/05/2022 08:30 ? Imaging(s) ?Echocardiogram - Complete ?? 08/11/2022 09:46??by Elizabeth Bryson MD ?Summary ??The left ventricular size is normal. The left ventricular wall thickness is ??mildly increased. Vigorous LV function. The left ventricular ejection ??fraction is >70 %. There are no definite regional wall motion abnormalities. ??Unable to assess diastolic function . ??The left atrium is poorly visualized. ??The left atrium is dilated. ??There is an atrial septal defect. ??Trileaflet aortic valve. There is no aortic stenosis. There is mild aortic ??regurgitation. ??s/p mitral clip. The mitral valve appears thickened. There is mild mitral ??regurgitation. The mitral valve mean gradient is 8 mmHg at 95bpm. There is ??mild mitral stenosis. ??The right ventricle is dilated. ??Right ventricular systolic function appears preserved. ??The tricuspid valve is grossly normal. There is moderate tricuspid valve ??regurgitation. ??The pulmonary artery systolic pressure estimation is 50-55 mmHg. ??There is mild pulmonary hypertension. ??There is a small pericardial effusion posteriorly . ?? Comparison ??Comparison is made to the study of July 31, 2022. Mitral clip is in ??place, degree of MR has decreased. Degree of TR has decreased, there is an ??ASD, PASP is mildly lower. There is a small posterior pericardial effusion. ?Echocardiogram - Complete ?? 07/31/2022 08:43??by Kyler Olson MD ?Summary ??Normal left ventricular size and function with EF 55-60%. No focal wall ??motion abnormalities. ??Normal right ventricular size and function. ??The left atrium is mildly dilated. ??There is mild aortic regurgitation. ??There is severe mitral regurgitation with a posteriorly directed jet (peak ??MV E wave velocity 1.5 m/s, systolic pulmonary vein flow reversal, ERO 0.47 ??cm2, RV 61 ml) ??There is mild to moderate mitral stenosis (mean gradient 6 mmHg at HR 94 ??bpm) ??There is moderate to severe tricuspid valve regurgitation. ??Moderate-severe pulmonary hypertension with PA systolic pressure 65 mmHg, ??mean PA pressure 34 mmHg, PVR 2.4 (assuming RA pressure of 3 mmHg). ??There is a significant left sided pleural effusion. ?? Comparison ??Comparison is made to the study of July, August, September 24, 2021. ??The severity of mitral and tricuspid regurgitation has significantly ??increased. ??Pulmonary hypertension is now evident. ?Trans-esophageal Echocardiogram ?? 08/10/2022 07:55??by Stef Wolf MD ?Summary ??Trans-septal puncture was performed under x-plane guidance. Catheter and ??Mitraclip were introduced across the atrial septal and steered down to the ??mitral valve clear of atrial structures under 2D and 3D guidance. Mitraclip ??NT was positioned for deployment using x-plane and 3D enface imaging. Mitral ??leaflet insertion into Mitraclip was confirmed, and Mitraclip was deployed. ?? Impressions ??Successful mitral valve [id number] repair with reduction of mitral ??regurgitation from severe to mild, with normalization in pulmonary venous ??slow and no increase in mitral valve gradient. ?? Comparison ??Comparison is made to the external study of August 02, 2022. ??Improved mitral regurgitation since previous study. ?Trans-esophageal Echocardiogram ?? 08/02/2022 09:37??by Stef Wolf MD ?Summary ??The left ventricular size is normal. The LV systolic function is normal . ?? The aortic valve is trileaflet . The aortic valve appears mildly calcified. ??Real time (live) 3D imaging reveals thickened aortic valve leaflets with ??normal function. There is no aortic stenosis. There is trace aortic ??regurgitation. ?? The mitral valve appears rheumatic . The mitral valve appears mildly to ??moderately thickened. There is moderate apical tethering of the anterior ??leaflet of the mitral valve. There is severe apical tethering of the ??posterior leaflet of the mitral valve. The chordal structure is thickened ??and calcified. Mitral regurgitation varied from moderate at the beginning of ??case, then became mild associated with some mild hypotension, then ??unequivocally severe after phenylephrine was administered to support blood ??pressure, with corresponding changes in 2D color, 3D color findings, as well ??as spectral pulsed and continuous wave Doppler. Real time (live) 3D imaging ??reveals thickened leaflets with mildly restricted opening and a small color ??jet at the medial commissure; when regurgitation became severe there was a ??visible gap at the medial commissure and a wide color jet that expanded ??toward A2-P2 as well. ?? The right ventricle is normal in size. Right ventricular systolic function ??appears preserved. ?? Impressions ??Very difficult ESME intubation - if considering repeat ESME she should have CI ??evaluation and/or barium swallow pre-procedure ?? Rheumatic mitral valve disease with dynamic mitral regurgitation originating ??from the medial commissure ?? Comparison ??No prior study available for comparison. ?Foot Min 3 Views Right ?? 08/12/2022 11:16??by Rekha Warren MD ?Osteopenia with no acute displaced fracture. ? 32??minutes spent on discharge * Shilpi Koo RN: PERFORM, SIGN, VERIFY Event Display: Case Management Discharge Plan Authored Date: [id number] Patient: CINDA WATSON Age: 77 years Sex: Female : 1945 Associated Diagnoses: None Author: Shilpi Koo RN Discharge Plan Case Management Discharge Plan : Case Management Discharge Plan Data 08/14/2022 13:52 EST Discharge Level of Care at Discharge Inpatient Rehab Facility/Unit Discharge Nursing Homes/Rehab Facilities [facility] Discharge Transportation Arranged [facility] [address] [place] [address] Discharge Arranged Transport Date/Time 08/14/2022 16:00 Mode of Transportation Arranged Ambulance Agency [facility]1 Intake Service Categories #1 Occupational Therapy, Physical Therapy, Mcfp Service Comments #1 You are being discharged to rehab at [facility]. Name of Person Notified of Transfer Pt. and daughter Tia [phone] * Shilpi Koo RN: PERFORM, SIGN, VERIFY Event Display: Case Management Discharge Plan Authored Date: [id number] Patient: CINDA WATSON Age: 77 years Sex: Female : 1945 Associated Diagnoses: None Author: Shilpi Koo RN Discharge Plan Case Management Discharge Plan : Case Management Discharge Plan Data 08/14/2022 13:52 EST Discharge Level of Care at Discharge Inpatient Rehab Facility/Unit Discharge Nursing Homes/Rehab Facilities [facility] Discharge Transportation Arranged [facility] [address] [place] [address] Discharge Arranged Transport Date/Time 08/14/2022 16:00 Mode of Transportation Arranged Ambulance Agency [facility]1 Intake Service Categories #1 Occupational Therapy, Physical Therapy, Mcfp Service Comments #1 You are being discharged to rehab at [facility]. Name of Person Notified of Transfer Pt. and daughter Tia [phone] * Kelly Hernandez RN: PERFORM, MODIFY Event Display: Patient Education/Instruction Authored Date: [id number] Inpatient Adult Discharge Instructions [address] [address] Name: CINDA WATSON : 1945 Visit: 07/29/2022 10:12:00 Current Date: 08/14/2022 16:47 Account: [id number] Inpatient Adult Discharge Instructions We would like [...] and their families. Surveys are administered by [employer] ?? If further treatment with your primary care physician or another doctor is recommended, it is important for you to keep the appointment. Call your primary care physician or return to the Emergency Department immediately if your condition worsens, fails to improve, or new symptoms develop. If you need to find a doctor, you can call [facility] for a referral at [phone] or toll free at [phone] or log in to [email or web address].. ?? You can view and manage your care through the patient portal or by using a health care alonso of your choosing. [employer] is a website that allows you to securely view your medical information including your hospital discharge summary, office visit summaries, medications and follow-up visits. You can also request appointments, renew medications, and request access to your medical information using a health care alonso of your choosing, or just ask a question. You can enroll at [email or web address] or register during your next office visit. You have been discharged from [facility], Patient Care Unit: M7. If you have any questions regarding these instructions after you leave, please call us and we will be happy to assist you. [facility] Your Care Team Attending Physician Rama STARK, Bobby Consulting Providers Dragan STARK, Alfredo Thompson; Nataliia STARK, Carli; Camille STARK, Sherron N; Mark STARK, Gisel Howard; Naheed Moy; Nava Wasserman MD, Zacarias Jenkins; Maryann STARK, Stef Quiroz; Bobby Ontiveros MD Discharging Providers Rama STARK, Bobby Reason for Admission SOB Your Diagnosis Acute hypoxemic respiratory failure Congestive heart failure COPD (chronic obstructive pulmonary disease) Embolism Hypokalemia Left leg pain Severe mitral regurgitation Tests Performed Below is a partial list of the tests performed during your hospitalization. You may have had other tests and procedures not included in this list. Please discuss all test results with your provider. ABG APTT?-- Results Pending -- Basic Metabolic Panel BNP BUN Calcium Ionized CBC CBC w/ Differential COVID-19 (2019 Novel Coronavirus) PCR COVID-19 (NOVEL CORONAVIRUS), PCR Creatinine Electrolytes GLUCOSE POC H + H High??Sensitivity??Troponin T HOLD BLUE TUBE HOLD GEL TUBE HOLD LAVENDER TUBE INR Magnesium Level Phosphorus Level ProBNP PROBNP Procalcitonin Level Respiratory Pathogen PCR with COVID-19 Troponin T, High Sensitivity Type and Screen Foot Min 3 Views Right Portable Chest US Extremity Non-Vascular Right Limited Venous Doppler Ext Lower Left (US) XR Chest Portable ? You will be contacted within 72 hours with your results. Primary Care Provider Caitlyn Bowie MD Advance Directive Health Care Proxy on File Yes - Health Care Proxy Yes - [facility] Discharge Vitals Temperature: 97.2 DegF Height: 160.02 cm Pulse Rate: 88 bpm Weight: 51.7 kg Respiratory Rate: 18 br/min Body Mass Index: 22.46 kg/m2 Systolic Blood Pressure: 112 mm Hg Body surface area: 1.6 Diastolic Blood Pressure: 57 mm Hg ?? Oxygen Saturation: 99 % ?? Studies Pending All tests and labs ordered during this hospital stay have been completed unless listed below. Please discuss all pending results with your provider listed above in these instructions. ?? Add On Lab Order CBC Hold Gel Top Tube (HOLD GEL TUBE) INR PTT (APTT) RBCs for Surgery What to do next Instructions From Your Doctor Discharge Orders Diet:??Cardiac diet Activity:??Ambulate with assistance 3 times a day unless otherwise specified Code Status:?? Full Resuscitation Prognosis:??Fair Scheduled Follow-Up Appointments Monday 1:45 PM EST ?? With: Leno Camarillo MD Where: [facility] [address] [place] [address]- You Need to Schedule the Following Appointments Follow Up with??Leno Camarillo When??09/14/2022 01:45 PM EST Where: [address] [place] [address] [address] [place] [address]- Business (1) Follow Up with??ECHO When??09/05/2022 10:00 AM EST Where: [address] [place] [address] 1st [place] [address]- [phone] Follow Up with??Leno Camarillo MD When??Within 4 to 5 weeks Why: Office will be in contact for follow up Where: Follow Up with??Caitlyn Bowie When??In 0 days Discharge Medications CINDA WATSON :1945 Visit Date:07/29/2022 Medications: Please continue your medications until treatment is completed or stopped by your provider. Medications not listed below should be discontinued. Discuss any questions related to medications with your provider. What How Much When Why Instructions Next Dose New Enoxaparin 90 Milligram Subcutaneous Injection Daily STOP ONCE INR IS 1.5 ?? Take tomorrow morning Changed Metoprolol (metoprolol succinate 100 mg oral capsule, extended release) 1 capsule Oral Daily Take tomorrow morning Changed Warfarin (warfarin 1 mg oral tablet) See instructions Embolism take 1-3 ??tablets By Mouth Daily as directed by the anticoagulation clinic ?? Resume home schedule Unchanged Albuterol (albuterol 0.083% inhalation solution) 3 Milliliter Inhalation Every 6 hours as needed for for wheezing Take as needed; may take tonight at bedtime Unchanged Albuterol (Ventolin HFA 108 mcg/ inh inhalation aerosol with adapter) 2 puff(s) Inhalation Every 6 hours as needed for Wheezing/Shortness of Breath Take as needed; may take tonight at bedtime Unchanged Diazepam (diazepam 5 mg oral tablet) 1/2-1 tablet Oral Twice a day as needed for anxiety & sleep Take as needed; may take tonight at bedtime Unchanged Docusate (docusate sodium 100 mg oral capsule) 1 capsule Oral Twice a day Take tonight at bedtime Unchanged elderberry (elderberry oral liquid) 15 Milliliter Oral Daily Take tomorrow morning Unchanged EPINEPHrine (EPINEPHrine 0.3 mg injectable solution) 0.3 Milligram Intramuscular Once as needed for Anaphylactic Reaction Resume home schedule Unchanged Ferrous Gluconate (ferrous gluconate 324 mg oral tablet) 1 tab(s) Oral Daily WITH BREAKFAST ?? Take tomorrow morning Unchanged Fluticasone-Salmeterol (Advair HFA 230 mcg / 21 mcg) 2 puff(s) Inhalation Twice a day Take tonight at bedtime Unchanged Levothyroxine (levothyroxine 25 mcg (0.025 mg) oral capsule) 1 capsule Oral Daily Monday through Monday ?? Resume home schedule Unchanged Levothyroxine (levothyroxine 50 mcg (0.05 mg) oral capsule) 1 capsule Oral Daily Monday & Monday's ?? Resume home schedule Unchanged Meclizine (meclizine 25 mg oral tablet) See instructions can take ??extra 25mg for up to four per day ?? Resume home schedule Unchanged Montelukast (Singulair 10 mg oral tablet) 1 tab(s) Oral Daily in PM Dr. Kelly ?? Take tonight at bedtime Unchanged Multivitamin (B-Complex SR) 1 tab(s) Oral Daily Take tomorrow morning Unchanged Omeprazole (omeprazole 40 mg oral enteric coated capsule) 1 capsule Oral Daily as needed for as needed Take daily as needed Unchanged PredniSONE 5 Milligram Oral Daily Take tomorrow morning Unchanged Rosuvastatin (rosuvastatin 10 mg oral tablet) 2 tab(s) Oral Monday, Monday and Monday Resume home schedule Unchanged Trazodone (traZODone 50 mg oral tablet) 2 tab(s) Oral Daily at Bedtime Dr. Kelly ?? Take tonight at bedtime ?? What How Much When Comments Stop Taking Clindamycin Topical (clindamycin topical 2% cream) 1 alonso Vaginally Daily at Bedtime Stop Taking Furosemide (furosemide 20 mg oral tablet) 2 tab(s) Oral Daily Test Results Below is a partial list of the most recent Laboratory test results done prior to this discharge. You may have had other tests and procedures not included in this list. Please discuss all test resultswith your provider. RBC Available - RE (08/07/2022) RBC Unit ID - [id number] (08/07/2022) ABG (08/08/2022) ???pH - 7.50???pCO2 - 41 mm Hg???pO2 - 126 mm Hg???Bicarbonate, Estimated - 32 mmol/L???Specimen Type - Blood Gas - ARTERIAL???Percent O2 (FIO2) - 24 Basic Metabolic Panel (08/12/2022) ???Sodium - 139 mmol/L???Potassium - 3.9 mmol/L???Chloride - 98 mmol/L???Bicarbonate Level - 30 mmol/L???Anion Gap - 11???Glucose Level - 93 mg/dL???BUN - 12 mg/dL???Creatinine-Blood - 0.8 mg/dL???Estimated GFR Creatinine - 74 ML/MIN/1.73 M2???Calcium - 10.0 mg/dL BNP (08/06/2022) ???Nt-Probnp - 532 pg/mL BUN (08/04/2022) ???BUN - 40 mg/dL Calcium Ionized (07/29/2022) ???Calcium, Ionized pH Corrected - 1.32 mmol/L CBC (08/14/2022) ???WBC - 10.2 k/mm3???RBC - 3.13 m/mm3???Hgb - 10.0 Gm/dL???Hct - 31.0 %???MCV - 99.0 femtoliters???MCH - 31.9 pg???MCHC - 32.3 g/dL???Platelet Count - 223 k/mm3???RDW-SD - 50.9 femtoliters???MPV - 11.4 femtoliters???Nucleated RBC (Automated) - 0.0 #/100 WBC'S???Abs. NRBC - 0.0 k/mm3 CBC w/ Differential (07/29/2022) ???WBC - 18.5 k/mm3???RBC - 3.97 m/mm3???Hgb - 12.5 Gm/dL???Hct - 39.7 %???MCV - 100.0 femtoliters???MCH - 31.5 pg???MCHC - 31.5 g/dL???Platelet Count - 289 k/mm3???RDW-SD - 50.5 femtoliters???MPV - 11.4 femtoliters???Nucleated RBC (Automated) - 0.0 #/100 WBC'S???Abs. NRBC - 0.0 k/mm3???Abs. Neut -14.9 k/mm3???Abs. Lymph - 2.2 k/mm3???Abs. [place] - 1.0 k/mm3???Abs. Eo - 0.1 k/mm3???Abs. Baso - 0.1k/mm3???Neut % - 80.7 %???Lymph % - 11.7 %???Fayette % - 5.2 %???Eos % - 0.6 %???Baso % - 0.6 %???Imm Gran - 1.2 %???Abs. Imm Gran - 0.2 k/mm3 COVID-19 (2019 Novel Coronavirus) PCR (08/11/2022) ???COVID-19 PCR Specimen Source - NASAL???COVID-19 PCR Result - NEGATIVE COVID-19 (NOVEL CORONAVIRUS), PCR (08/14/2022) ???COVID-19 by RT-PCR - NEGATIVE Creatinine (08/04/2022) ???Creatinine-Blood - 0.9 mg/dL???Estimated GFR Creatinine - 69 ML/MIN/1.73 M2 Electrolytes (08/04/2022) ???Sodium - 136 mmol/L???Potassium - 3.2 mmol/L???Chloride - 91 mmol/L???Bicarbonate Level - 34 mmol/L???Anion Gap - 11 GLUCOSE POC (08/10/2022) ???Glucose, POC - 102 mg/dL H + H (08/07/2022) ???Hgb - 12.7 Gm/dL???Hct - 40.2 % High??Sensitivity??Troponin T (07/29/2022) ???High Sensitivity Troponin (HSTnT) - HEMOLYZED HOLD BLUE TUBE (07/29/2022) ???Hold Blue Top - SPECIMEN DISCARDED AFTER 4 HOURS. HOLD GEL TUBE (08/13/2022) ???Hold Gel Top - SPECIMEN DISCARDED AFTER 1 WEEK HOLD LAVENDER TUBE (07/29/2022) ???Hold Lavender Top - SPECIMEN DISCARDED AFTER 24 HOURS. INR (08/14/2022) ???INR - 1.3???Protime (PT) - 13.2 seconds Magnesium Level (08/12/2022) ???Magnesium - 2.4 mg/dL Phosphorus Level (08/04/2022) ???Phosphorus - 2.4 mg/dL ProBNP (07/29/2022) ???Nt-Probnp - 1239 pg/mL PROBNP (08/09/2022) ???Nt-Probnp - 421 pg/mL Procalcitonin Level (08/06/2022) ???Procalcitonin - 0.02 ng/mL Respiratory Pathogen PCR with COVID-19 (08/07/2022) ???Adenovirus by PCR - NEGATIVE???Coronavirus 229E by PCR (not COVID-19) - NEGATIVE???Coronavirus HKU1 by PCR (not COVID-19) - NEGATIVE???Coronavirus NL63 by PCR (not COVID-19) - NEGATIVE???Coronavirus OC43 by PCR (not COVID-19) - NEGATIVE???Human Metapneumovirus by PCR - NEGATIVE???Rhinovirus/Enterovirus by PCR - NEGATIVE???Influenza A by PCR - NEGATIVE???Influenza B by PCR - NEGATIVE???Parainfluenza 1 by PCR - NEGATIVE???Parainfluenza 2 by PCR - NEGATIVE???Parainfluenza 3 by PCR - NEGATIVE???Parainfluenza 4 by PCR - NEGATIVE???RSV by PCR - NEGATIVE???Bordetella Pertussis by PCR - NEGATIVE??? Chlamydophila Pneumoniae by PCR - NEGATIVE???Mycoplasma Pneumoniae by PCR - NEGATIVE???COVID-19 (SARS-CoV-2) by PCR - NEGATIVE???Bordetella Parapertussis by PCR - NEGATIVE Troponin T, High Sensitivity (07/30/2022) ???High Sensitivity Troponin (HSTnT) - 35 ng/L Type and Screen (08/09/2022) ???Blood Type - A Positive???Antibody Screen - [...] Educational Leaflet Providered with your Discharge Instructions. COPD: Coping with Fatigue?? COPD Flare-Up?? Heart Failure: Getting the Care You Need?? Heart Failure Zones?? Heart Failure: After Your Hospital Stay?? Heart Failure Discharge Instructions for Heart Failure?? Heart Failure?? COPD and Heart Disease?? Chronic Lung Disease:??Controlling Stress?? Heart Failure: Making Changes to Your Diet?? Heart Failure: Tracking Your Weight?? Discharge Instructions for Heart Failure?? Surgery MitraClip Discharge Instruction?? Valuables and Belongings I fully understand and agree that [facility] accepts no responsibility for all my [...] to send valuables and belongings home. ?? Review of Valuable and Belonging List: With patient Date for Pt to Sign Valuables/Belongings: 08/05/22 08:37:00 ?? Valuables & Belongings ?? Clothes Electronic devices Jewelry Monetary Items Personal devices Miscellaneous Medications (Valuables) Valuables at Bedside ? Glasses ? Valuables Sent Home ? Valuables Sent to Security ? Other Discharge Information ? Case Management Discharge Plan?? Discharge Plan?? Discharge Agency Information?? Discharge Level of Care at Discharge: Inpatient Rehab Facility/Unit Agency Loose Hand Packer #1: Intake Discharge Transportation Arranged: [facility] Yasmin Shipley [facility] [id number] [phone] Service Categories #1: Occupational Therapy, Physical Therapy, Mcfp Mode of Transportation Arranged: Ambulance Service Comments #1: You are being discharged to rehab at [facility] Discharge Arranged Transport Date/Time: 08/14/22 17:30:00 Name of Person Notified of Transfer: Pt. and daughter Tia Discharge Nursing Homes/Rehab Facilities: [facility] ? Pulmonary Rehab Status?? Pulmonary Rehab Discharge Status?? CPAP/BiPAP Mask Type: Full CPAP/BiPAP Mask Size: Other: pts own mask Respiratory Rate: 18 br/min ? Common Emergency Awareness Tips IS [...] are strongly encouraged to quit. Please call [facility] at [phone] or [phone] ([phone]) or log in to [email or web address] for referrals to smoking cessation programs. ?? The National Suicide Prevention Hotline is available 30/01 if you or someone you know needs to find a reason to keep living. By calling 3-069-498-Fubles (7215) you'll be connected to a skilled, trained counselor at a crisis center in your area. INPATIENT DISCHARGE INSTRUCTIONS SIGNATURE PAGE CINDA WATSON Location:[facility] Registration Date and Time:07/29/2022 10:12 [facility] Primary Care Physician: Caitlyn Bowie MD, CINDA ARCE, have received the above patient education materials/instructions and have verbalized understanding. If ambulance or transport services are being used I further acknowledge being given a choice of service. ?? If you need to contact me, please call me at this number: . Patient/Youth Agent Name: Patient/Youth Agent Signature: Relationship to Patient: Witness Name/Signature: Date: * Kelly eHrnandez RN: PERFORM Event Display: Patient Education Leaflets Authored Date: [id number] Enoxaparin Injectable Solution ?? [id number] Enoxaparin Injectable Solution Brands: Lovenox Uses This medicine is used for the following purposes: ??? heart attack ??? prevent blood clots ??? blood clot ?? Instructions This medicine is used by injecting it into the skin. Please ask your doctor, nurse or pharmacist for the correct places on your body where this medicine can be injected. Do not mix this medicine with other solutions. Always inspect the medicine before using. The liquid should be clear or light yellow. Check the medicine before each use. If the liquid medicine has any particles in it, appears discolored, or if the vial appears damaged, do not use it. Keep medicine at room temperature. Protect from light. Never use any medicine that has . Ask your doctor, nurse or pharmacist to show you how to use this medicine correctly. Change the location of the injection each time. Choose a location at least 1 inch from the last injection. Drug interactions can change how medicines work or increase risk for side effects. Tell your healthcare providers about all medicines taken. Include prescription and [id number] medicines, vitamins, and herbal medicines. Speak with your doctor or pharmacist before starting or stopping any medicine. Talk to your doctor before taking other medicines, including aspirins and ibuprofen containing products. Speak to your doctor about which medicines are safe to use while you are on this medicine. It is very important that you follow your doctor's instructions for all blood tests. ?? Cautions This medicine may cause serious bleeding from the stomach or bowels. Stop this medicine and call your doctor immediately if you see any signs of bleeding. Bleeding can cause pain in the stomach, vomiting up liquid that looks like coffee grounds, and red or dark tarry stools. There is an increased risk of bleeding while on this medicine, please tell your doctor or nurse if you notice any excessive bleeding or bruising. Do not use the medication any more than instructed. Tell the doctor or pharmacist if you are , planning to be , or . Ask your pharmacist how to properly throw away used needles or syringes. Do not share this medicine with anyone who has not been prescribed this medicine. ?? Side Effects The following is a list of some common side effects from this medicine. Please speak with your doctor about what you should do if you experience these or other side effects. ??? changes in the number of cells in the blood ??? unusual bruising or discoloration on skin ??? swelling of the legs, feet, and hands ??? fever ??? pain, redness, swelling near injection ??? nausea??? red, burning, or itchy skin Call your doctor or get medical help right away if you notice any of these more serious side effects: ??? increased risk of bleeding ??? confusion ??? nosebleeds ??? bloody or dark, tarry stools A few people may have an allergic reaction to this medicine. Symptoms can include difficulty breathing, skin rash, itching, swelling, or severe dizziness. If you notice any of these symptoms, seek medical help quickly. ?? Extra Please speak with your doctor, nurse, or pharmacist if you have any questions about this medicine. ?? [email or web address] IMPORTANT NOTE: This document tells you briefly how to take your medicine, but it does not tell youall there is to know about it. Your doctor or pharmacist may give you other documents about your medicine. Please talk to them if you have any questions. Always follow their advice. There is a more complete description of this medicine available in Samoan. Scan this code on your smartphone or tablet or use the web address below. You can also ask your pharmacist for a printout. If you have any questions, please ask your pharmacist. The display and use of this drug information is subject to Terms of Use. Copyright(c) 2021 [employer]. ?? The [employer]. All rights reserved. This information is not intended as a substitute for professional medical care. Always follow your healthcare professional's instructions. ?? * Kelly Hernandez RN: PERFORM Event Display: Patient Education Leaflets Authored Date: [id number] COPD: Coping with Fatigue ?? [address] COPD: Coping with Fatigue It's common to feel tired when you have COPD. During physical activity, your energy level may be low. This is known as fatigue. How does COPD cause fatigue? COPD (chronic obstructive pulmonary disease) is a health problem that keeps your lungs from workingas they should. The lungs??? job is to get oxygen to the body. Oxygen is an important gas your bodyneeds to work correctly. The air you breathe in contains oxygen. Inside the lungs, air moves through tubes called airways. In healthy airways, air moves in and out easily. With COPD, lungs and airways are damaged. When the lungs are damaged it, takes more work to get air into the lungs. Poor air flow means the body can???t get the oxygen it needs. You may also have higher levels of carbon dioxide. Carbon dioxide is a waste product of breathing. COPD also causes inflammation in the lungs. These things can also lead to fatigue. With COPD, lung damage is usually from breathing in irritants over a long period of time. The main irritant that causes COPD is cigarette smoke. Other irritants are pollution, dust, fumes, and chemicals. ?? Treatment for fatigue Except for a lung transplant COPD has no cure. But certain treatments can help symptoms such as fatigue. These treatments include: ??? Bronchodilators. These medicines help open the airways to help you breathe easier. ??? Combination medicines. These include a bronchodilator and a steroid. Bronchodilators help make breathing easier by opening the airways. Steroids help ease inflammation in the lungs ??? Antibiotics. A respiratory infection can make COPD symptoms worse. Antibiotics are medicines that help treat infections. ??? Pulmonary rehab (rehabilitation). This program teaches ways to ease COPD symptoms. It includes tips on exercising, correct posture, how to conserve energy, and healthy eating to improve breathing. ??? Oxygen therapy. When the level of oxygen in your blood is too low, your healthcare provider may prescribe oxygen. Oxygen can help you feel better and be more active. You may use the extra oxygen all the time. Or you may need it only during some activities such as exercise. Use it as your provideradvises. ??? Surgery. You may need surgery for severe symptoms when other treatments have not helped. Surgery removes the most damaged parts of the lungs. Your healthcare provider will work with you to decide on the best treatment plan for you. ?? Self-care tips for coping with fatigue There are things you can do to manage your fatigue and have more energy: ??? Balance activity and rest. This can help you from getting overtired. Stop and rest before you feel worn out. If an activity takes a lot of energy, break it into parts. For instance, fold the laundry. Then have a rest before putting it away. ??? Save your energy. The way you use your body duringa task can help you have more energy. Do activities slowly. Rushing through activities uses more energy. It can also increase shortness of breath. Sit to dress and to do other daily tasks such as brushing your teeth. Use a cart with wheels to move food, laundry and other items around your house. Keep the things you use often at waist level so you can get them easily. Do things that are most important to you when you have the most energy. Ask family and friends for help with challenging tasks. ??? Eat well. When you???re tired, you may not be eating as well as you should. Poor nutrition can make symptoms worse. It can also raise your risk for infections. Try resting before eating. Eat smaller meals throughout the day. Ask your healthcare provider if you should take vitamins or supplements.??? Stay at a healthy weight. Being underweight can limit your energy. Being overweight can make shortness of breath worse. Work with your healthcare provider to find out the best weight for you. ???Don???t be afraid to exercise. Exercise may make you short of breath. But exercise can strengthen breathing muscles. It can also give you more energy. Walking is a good way to get oxygen moving through the body. Ask your healthcare provider about safe exercises for you. ??? Do breathing exercises. Learn how to do belly breathing and pursed-lip breathing. Do these exercises while you are working. They can help you breathe better. Taking slow, deep breaths at any time can give you more of the oxygen you need. Here are more ways to reduce symptoms caused by COPD: ??? Stop smoking. Cigarette smoking is the main cause of COPD. Stopping smoking is the most important step you can take to treat COPD. If you need help stopping smoking, talk with your healthcare provider. ??? Stay away from secondhand smoke andother irritants. Try to stay away from smoke, chemicals, fumes, and dust. Don???t let anyone smoke in your home or around you. Stay indoors on days that have high air pollution. ??? Prevent lung infections. Get the vaccines your provider advises. Having COPD raises your risk for flu and pneumonia. This can make your symptoms worse. Ask your healthcare provider about the flu and pneumonia vaccines. Take steps to prevent colds and other lung infections. Stay away from crowds during cold and flu season. Also stay away from people who are sick. ??? Practice correct handwashing. Wash your hands often with soap and clean, running water for at least 20 seconds. Use hand co chairman with at least 60%alcohol when you can???t wash your hands. ?? When to call your healthcare provider Call your healthcare provider right away if you have any of these problems: ??? Fever of 100.4??F (38??C) or higher, or as directed by your healthcare provider ??? Symptoms that don???t get better, or get worse ??? New symptoms ?? Last Reviewed Date: 2021 ?? [employer]. All rights reserved. This information is not intended as a substitute for professional medical care. Always follow your healthcare professional's instructions. ?? * Kelly Hernandez RN: PERFORM Event Display: Patient Education Leaflets Authored Date: [id number] COPD Flare-Up ?? [id number] COPD Flare-Up You have had a flare-up of your COPD. COPD (chronic obstructive pulmonary disease) is a common lung disease. It causes your airways to get irritated and narrower. This makes it harder for you to breathe. Emphysema and chronic bronchitis are both types of COPD. This is a long-term (chronic) condition. This means you always have it. Sometimes it gets worse. When this happens, it's called a flare-up. Symptoms of COPD People with COPD may have symptoms most of the time. In a flare-up, your symptoms get worse. These symptoms may mean you are having a flare-up: ??? Shortness of breath, shallow or rapid breathing, orwheezing that gets worse ??? Lung infection ??? Cough that gets worse ??? More mucus (or sputum), thicker mucus, or mucus of a different color ??? Tiredness, less energy, or trouble doing your normalactivities ??? Fever ??? Chest tightness ??? Your symptoms don???t get better even when you use your normal medicines, inhalers, and nebulizer ??? Trouble talking ??? You feel confused ?? Causes of flare-ups Unfortunately, a flare-up can happen even if you did everything right, and even if you followed your healthcare provider???s instructions. Some causes of flare- ups are: ??? Cold weather ??? Smoking or secondhand smoke ??? Use of e- cigarettes or vaping products ??? Colds, the flu, or respiratory infections ??? Air pollution ??? Sudden change in the weather ??? Dust, vapors, gases, irritating chemicals, or strong fumes ??? Not taking your medicines as prescribed ??? Indoor pollution such as burning wood, smoke from home cooking, or heating fuels ?? Home care Here are some things you can do at home to treat a flare-up: ??? Keep calm and try not to panic. This makes it harder to breathe, and keeps you from doing the right things. ??? Don???t smoke or be around others who are smoking. If you smoke, quit. Smoking is the main cause of COPD. Quitting will help you be able to better manage your COPD. Don't use e-cigarettes or vaping products either. Ask your healthcare provider about ways to help you quit smoking. ??? Before drinking extra fluids during flare-ups to loosen the mucus, always talk with your healthcare provider first. ??? Eat a healthy, balanced diet. This is important to staying as healthy as possible. So is trying to stay at your ideal weight. Being overweight or underweight can affect your health. Make sure you have a lot of fruits and vegetables every day. And also eat balanced portions of whole grains, lean meats and fish, and low-fat dairy products. ??? Use your inhalers and nebulizer, if you have one, as you have been told to. When using a metered dose inhaler or nebulizer, it's very important to use the proper techniques.If you have any questions about how to use your device, contact your healthcare provider or refer to the user manual. ??? If you were given antibiotics, take them until they are used up or your provider tells you to stop. It???s important to finish the antibiotics even though you feel better. This will make sure the infection has cleared. ??? If you were given a steroid, finish it even if you feel better. ??? Learn the names of your medicines, as well as how and when to use them. Talk with yourprovider about other conditions you have and their treatment and how it may affect your COPD. ??? Oxygen may be prescribed if tests show that your blood contains too little oxygen. Ask your provider about long-term oxygen therapy. ??? Coping tips for shortness of breath include: o Exercise. Try to be as active as possible. This will improve energy levels and strengthen your muscles so you can do more. o Breathing methods. Ask your healthcare provider or nurse to show you how to do pursed-lip breathing. o Balance rest and activity. Each day, try to balance rest periods with activity. For example, you might start the day with getting dressed and eating breakfast. Then you can relax and read the paper. After that, take a brief walk. And then sit with your feet up for a while. o Pulmonary rehab (rehabilitation). Community-based and home-based programs work as well as hospital-based programs as long as they are as often and as intense. Standard home-based pulmonary rehab programs help shortness of breath in people with COPD. Supervised, traditional pulmonary rehab remains the best optionfor people with COPD. These programs help with managing your disease and also help with breathing methods, exercise, support, and counseling. To find one, ask your provider or call your local hospital. Also talk with your healthcare provider about which rehab or self- management program is best for you. ?? Preventing a flare-up Flare-ups happen. But the best way to treat one is to prevent it before it starts. Here are some pointers: ??? Don???t smoke or be around others who are smoking. Avoid using e-cigarettes due to theirharmful side effects. ??? Take your medicines as discussed with your healthcare provider. ??? Talk with your provider about getting a flu shot every year. Also find out if you need a pneumonia shot. ??? If there is a weather advisory warning to stay indoors, try to stay inside when possible. ??? Try to eat healthy, exercise, and get plenty of sleep. ??? Try to stay away from things that normally set you off. These include dust, chemical fumes, hairsprays, or strong perfumes. ?? Follow-up care Follow up with your healthcare provider as advised. If a culture was done, you will be told if your treatment needs to be changed. You can call as directed??for the results. If X-rays were done, you will be told of any new findings that may affect your care. During each appointment, talk with your healthcare provider about your ability to: ??? [place] in yournormal environment ??? Correctly use inhaler (or your medicine delivery systems) ??? [place] with other conditions you have and their treatments and how they may affect your COPD ?? Call 911 Call 911 if any of these occur: ??? Wheezing or shortness of breath does not get better with treatment ??? Chest pain or chest tightness ??? Feeling lightheaded or dizzy ??? You have trouble breathing ??? You feel confused or it???s hard to wake you up ??? You faint or lose consciousness ??? You have a rapid heart rate ??? You have new pain in your chest, arm, shoulder, neck, or upper back ?? When to seek medical advice Call your healthcare provider right away??if??any of these occur: ??? Fever of 100.4??F??(38??C) orhigher, or as directed by your healthcare provider ??? Coughing up lots of dark-colored or bloody mucus (sputum) ??? You don't start to get better within 24 hours or new symptoms develop ??? Swellingof your ankles gets worse ??? Weakness ?? Last Reviewed Date: 2021 ?? [id number] The [employer]. All rights reserved. This information is not intended as a substitute for professional medical care. Always follow your healthcare professional's instructions. ?? * Event Display: Cardiac Rhythm Strips Authored Date: * Event Display: Hemodynamic Procedure Report Authored Date: * Event Display: Cardiac Rhythm Strips Authored Date: * BHSPowerscribe , CIS S: TRANSCRIBE Vamsi Galloway MD: VERIFY Event Display: Result: Authored Date: US Extremity Non-Vascular Right Limited Reason: Palpable Mass developed today; R leg swelling; Clinical Question(s): Other:; hematoma. The patient is on heparin. COMPARISON: None. FINDINGS: High-resolution, linear array imaging of the superficial soft tissues of the medial aspect of the right lower leg was performed in the area of the patient's new-onset palpable lump. At the site of a lump along the medial aspect of the right calf, there is a 1.5 x 0.8 x 1.2 cm complex hypoechoic nonvascular mass suggestive of a hematoma. No other sonographic abnormality is apparent. IMPRESSION: 1.5 x 0.8 x 1.2 cm hematoma along the medial aspect of the right lower leg at the site of a palpable lump. WSN: [id number] Ordering Physician: Henry Agarwal Dictated By: Vamsi Galloway MD Dictated Date/Time: 08/11/22 3:24 pm Reviewed By: Vamsi Galloway MD Signed By: Vamsi Galloway MD Signed Date/Time: 08/11/22 3:24 pm Transcribed By: MART Transcribed Date/Time: 08/11/22 3:20 pm * Criss Saravia: PERFORM, SIGN, VERIFY Event Display: Patient Education Handout Authored Date: [id number] * Event Display: Provider Clarification Note Please click on pdf link to open report * Olga , DEAN S: TRANSCRIBE Brianna Lawton MD: VERIFY Event Display: Result: Authored Date: [id number] US Doppler Ext Lower Venous Left Reason: Pain Tenderness Extremities; check for DVT; Clinical Question(s): Thrombus COMPARISON: None IMAGING TECHNIQUE: Ultrasound of the veins from the groin through the calf was performed using grayscale, color, and spectral Doppler ultrasound assessing for complete compressibility and normal flowcharacteristics. FINDINGS: Common femoral vein: Patent. No thrombosis. Femoral vein: Patent. No thrombosis. Popliteal vein: Patent. No thrombosis. Gastrocnemius veins: The visualized portions are patent without evidence of thrombosis. Peroneal veins: The visualized portions are patent without evidence of thrombosis. Posterior tibial veins: The visualized portions are patent without evidence of thrombosis. Contralateral common femoral vein: Patent. No thrombosis. OTHER FINDINGS: IMPRESSION: No evidence of deep venous thrombosis. WSN: [id number] Ordering Physician: Robert Nuñez Dictated By: Brianna Lawton MD Dictated Date/Time: 07/30/22 1:59 pm Reviewed By: Brianna Lawton MD Signed By: Brianna Lawton MD Signed Date/Time: 07/30/22 1:59 pm Transcribed By: MART Transcribed Date/Time: 07/30/22 1:58 pm Endoscopy study * Event Display: GG EGD Please click on pdf link to open report Consult note * Art Stock DO: MODIFY, PERFORM, MODIFY Event Display: Consult Authored Date: Patient: ??CINDA WATSON ? Age:??77 Years?Sex:??Female?:??1945?? 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 Pulmonary is consulted in regards to preoperative risk stratification in preparation for mitraclip procedure due to recurrent episodes of NSTEMI, pulmonary edema in setting of mitral regurgitation. ?? Her pulmonary history is well known, she is followed by Dr. Kelly.?? She was recently admitted in early??ber and underwent R and L heart cath.?? She had some evidence of pre- and post-capillary pulmonary hypertension. And her mill stenciler recently started her on sildenafil, which she used for approximately one week. There was some concern that sildenafil had predisposed her to pulmonary edema.?? Other than that, there have been no changes to her pulmonary regimen which includes advair and incruze??ellipta, Nocturnal BiPAP, and??supplemental oxygen.? Recently, her BiPAP has been alerting her that she has been having a higher residual AHI.?? I interrogated her BiPAP. IT is set to 13/9.?? Her residual AHI for the past month has averaged 10 events/hour, 5 of which are obstructive, 5 of which are central. Per Dr. Kelly's office note, she loops 2L O2 into her BiPAP at night. ?? In terms of her respiratory status, she is short of breath with exertion.?? She does not have much cough or sputum production. Most of her symptoms are dyspnea. No PND or orthopnea. No wheezing. ?? Never smoker, no occupational hazards No recent travel outside of country Tested negative for tuberculosis before Review of Systems Constitutional:??No weight loss, fever, chills, weakness or fatigue. Allergy/Immune: Denies any??Eczema or hives Eyes:??No visual loss, blurred vision, double vision or yellow sclera ENT:??No hearing loss, sneezing, congestion, runny nose or sore throat. Respiratory:??+ SOB, dyspnea on exertion, no wheezing Cardiovascular:??No chest pain, chest pressure or chest discomfort. No palpitations or pedal edema. Gastrointestinal:??No anorexia, nausea, vomiting or diarrhea. No abdominal pain or blood in stool. Genitourinary:??No burning micturition. No urinary frequency or incontinence. Neurologic:??No headache, dizziness, syncope, unilateral weakness, ataxia, numbness or tingling in the extremities. No change in bowel or bladder control. Musculoskeletal:??No muscle pain, back pain, joint pain or stiffness. Hematologic/Lymphatics:??No bleeding or bruising. No painful lymph nodes. Skin:??No rash or itching. Endocrine:??No reports of sweating. No cold or heat intolerance. No polyuria or polydipsia. Psychiatric:??No depression or anxiety. Objective Measurements?? Height: 160.02 cm (08/07/22) Weight: 56.2 kg (08/07/22) Dry Weight: 57.1 kg (07/30/22) Body Mass Index: 21.95 kg/m2 (08/07/22) ? Vital Signs?? Temperature: 98.4 DegF (08/07/22 07:29:00) Temperature Route: Oral (08/07/22 07:29:00) Pulse Rate: 72 bpm (08/07/22 11:23:00) Respiratory Rate: 19 br/min (08/07/22 11:15:00) Systolic Blood Pressure: 121 mm Hg (08/07/22 11:23:00) Diastolic Blood Pressure: 66 mm Hg (08/07/22 11:23:00) Blood pressure sites: Arm, right (08/07/22 07:29:00) Mean Arterial Pressure: 83 mm Hg (08/07/22 07:29:00) Pulse Pressure: 51 mm Hg (08/07/22 07:29:00) Oxygen Saturation: 99 % (08/07/22 07:29:00) Liters per Minute: 2 L/min (08/07/22 07:29:00) Mode of Delivery (Oxygen): Nasal cannula (08/07/22 07:29:00) FiO2: 28 % (08/07/22 11:15:00) Early Warning Score: 4 (08/07/22 11:24:04) ? Pain Scores?? No qualifying data available. ?? Ventilator Settings?? FiO2: 28 % (11:15) ? Intake/Output? 07/29 10:12 08/07 07:00 08/06 07:00 08/05 07:00 08/04 07:00 ?? 08/07 11:53 08/07 11:53 08/07 06:59 08/06 06:59 08/05 06:59 Intake ? 8201.1 ?0 ? 2925.1 ?0 ? 1080 Output ?84881 ?200 ? 1950 ?550 ? 1400 Net Total ?-2798.9 ? -200 ?975.1 ? -550 ? -320 ? Urine Count ?5 ?0 ?0 ?0 ?0 ? Physical Exam Constitutional: Alert, in no distress. Mental Status: Oriented to person, place and time. Head: Normocephalic. Eyes: Pupils are equal, round and reactive to light. Extraocular muscles intact. Ear, Nose and Throat: Oropharynx clear, mucous membranes moist. Respiratory: Clear to auscultation. No wheezing, rales or rhonchi. Cardiovascular: S1 S2 regular. No murmurs, rubs or gallops. Gastrointestinal: Abdomen soft, non-tender, non-distended. Neurologic: Cranial nerves II-XII grossly intact. No focal neurological deficits. Skin: No rashes or lesions. No petechiae or purpura.?? Musculoskeletal: No cyanosis or clubbing. No gross deformities. Normal range of motion. Psychiatric: Normal mood and affect Assessment/Plan Mitral regurgitation Chronic hypoxic respiratory failure COPD KANDY Severe pulmonary hypertension DVT/PE on warfarin Antiphospholipid syndrome Lung cancer stage IIIA s/p neoadjuvant chemoradiation and LLL Lobectomy Hx of radiation fibrosis ?? By ARISCAT Score, at the very least she is moderate risk for pulmonary complications for upcoming mitraclip procedure Would continue her on triple inhaler therapy, supplemental O2 as necessary for O2 sat goal 90-92% PAP therapy at nighttime and in the immediate postoperative period ?? In regards to her chronic pulmonary issues, she can continue to follow up as an outpatient for COPD/KANDY Her BiPAP settings appear inadequate, with residual AHI averaging 10 events/hour over the past month This does not appear to be related to mask leak This can be addressed as an outpatient, if needed, can increase the EPAP gradually while maintaining a pressure support of 4 If elect to make changes, would assess for residual AHI daily by machine interrogation Can also consider removing the ramp time to eliminate the chance that apneas or hypopneas occur while machine is ramping up to target settings ?? Her pulmonary hypertension is likely multifactorial Was started on sildenafil as outpatient due to concern for precapillary pulm HTN But group 2, 3, 4, pulmonary hypertension are all likely contributing as well (L heart disease, COPD/KANDY, chronic vasocclusive disease in setting of antiphospholipid syndrome) Would continue outpatient follow up ?? Case will be discussed with the pulmonary attending ?? Art Stock DO PGY-4 Pulmonary and Critical Care Medicine Fellow ? Histories Allergies Allergies ?(Active and Proposed Allergies [...] History Alcohol Details:??Use: Never. 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 Exercise Details:??Regular exercise: No. Home/Environment Details:??Living situation: [...] 0.083% inhalation solution)?3?Milliliter?2.5?Milligram?Inhalation?Every 6 hours?as needed?for wheezing Clindamycin Topical (clindamycin topical 2% cream)?1?alonso?Vaginally?Daily at bedtime Diazepam (diazepam 5 mg oral tablet)?1/2-1 tablet?By Mouth?2 times a day?as needed?anxiety & sleep Docusate (docusate sodium 100 mg oral capsule)?100?Milligram?1?capsule?By Mouth?2times a day elderberry (elderberry oral liquid)?15?Milliliter?By Mouth?Daily EPINEPHrine (EPINEPHrine 0.3 mg injectable solution)?0.3?Milligram?Intramuscular?Once?as needed?Anaphylactic Reaction Ferrous Gluconate (ferrous gluconate 324 mg oral tablet)?1?tab(s)?324?Milligram?By Mouth?Daily?WITH BREAKFAST Fluticasone-Salmeterol (Advair HFA 230 mcg / 21 mcg)?2?puff(s)?Inhalation?2 times a day Furosemide (furosemide 20 mg oral tablet)?40?Milligram?2?tablet?By Mouth?Daily Levothyroxine (levothyroxine 25 mcg (0.025 mg) oral [...] coated capsule)?1?capsule?40?Milligram?By Mouth?Daily?as needed?as needed PredniSONE?5?Milligram?By Mouth?Daily Rosuvastatin (rosuvastatin 10 mg oral tablet)?2?tab(s)?20?Milligram?By Mouth?Every Monday, Monday and Monday Trazodone (traZODone 50 mg oral tablet)?100?Milligram?2?tablet?By Mouth?Daily at bedtime?Dr. Kelly Warfarin (warfarin 1 mg oral tablet)?See Instructions?take 1-2 ??tablets By Mouth Daily as directed by the anticoagulation clinic ? Results Recent Labs BLOOD COUNT & DIFF WBC 11.2 k/mm3 (High)?? 08/07/2022 02:13 RBC 3.46 m/mm3 (Low)?? 08/07/2022 02:13 Hgb 10.8 Gm/dL (Low)?? 08/07/2022 02:13 Hct 33.9 % (Low)?? 08/07/2022 02:13 MCV 98.0 femtoliters ()?? 08/07/2022 02:13 MCH 31.2 pg ()?? 08/07/2022 02:13 MCHC 31.9 g/dL (Low)?? 08/07/2022 02:13 Platelet Count 299 k/mm3 ()?? 08/07/2022 02:13 RDW-SD 48.1 femtoliters (High)?? 08/07/2022 02:13 MPV 11.4 femtoliters ()?? 08/07/2022 02:13 Nucleated RBC (Automated) 0.0 #/100 WBC'S ()?? 08/07/2022 02:13 Abs. NRBC 0.0 k/mm3 ()?? 08/07/2022 02:13 ?? BLOOD GAS pH 7.54 (High)?? 08/07/2022 11:08 pCO2 42 mm Hg ()?? 08/07/2022 11:08 pO2 140 mm Hg (High)?? 08/07/2022 11:08 Bicarbonate, Estimated 35 mmol/L (High)?? 08/07/2022 11:08 Specimen Type - Blood Gas ARTERIAL ()?? 08/07/2022 11:08 Percent O2 (FIO2) 28 ()?? 08/07/2022 11:08 ?? CARDIAC Nt-Probnp 532 pg/mL (High)?? 08/06/2022 05:14 ?? CHEM GENERAL Sodium 135 mmol/L ()?? 08/07/2022 02:13 Potassium 3.8 mmol/L ()?? 08/07/2022 02:13 Chloride 93 mmol/L (Low)?? 08/07/2022 02:13 Bicarbonate Level 35 mmol/L (High)?? 08/07/2022 02:13 Anion Gap 7 ()?? 08/07/2022 02:13 Glucose Level 108 mg/dL (High)?? 08/07/2022 02:13 BUN 29 mg/dL (High)?? 08/07/2022 02:13 Creatinine-Blood 0.8 mg/dL ()?? 08/07/2022 02:13 Estimated GFR Creatinine 73 ML/MIN/1.73 M2 ()?? 08/07/2022 02:13 Calcium 10.0 mg/dL ()?? 08/07/2022 02:13 Magnesium 2.6 mg/dL (High)?? 08/07/2022 02:13 ?? COAG APTT 57.5 seconds (High)?? 08/07/2022 04:53 ?? MISC. CHEMISTRY Procalcitonin 0.02 ng/mL ()?? 08/06/2022 05:14 ?? VIROLOGY Adenovirus by PCR NEGATIVE ()?? 08/07/2022 04:43 Coronavirus 229E by PCR (not COVID-19) NEGATIVE ()?? 08/07/2022 04:43 Coronavirus HKU1 by PCR (not COVID-19) NEGATIVE ()?? 08/07/2022 04:43 Coronavirus NL63 by PCR (not COVID-19) NEGATIVE ()?? 08/07/2022 04:43 Coronavirus OC43 by PCR (not COVID-19) NEGATIVE ()?? 08/07/2022 04:43 Human Metapneumovirus by PCR NEGATIVE ()?? 08/07/2022 04:43 Rhinovirus/Enterovirus by PCR NEGATIVE ()?? 08/07/2022 04:43 Influenza A by PCR NEGATIVE ()?? 08/07/2022 04:43 Influenza B by PCR NEGATIVE ()?? 08/07/2022 04:43 Parainfluenza 1 by PCR NEGATIVE ()?? 08/07/2022 04:43 Parainfluenza 2 by PCR NEGATIVE ()?? 08/07/2022 04:43 Parainfluenza 3 by PCR NEGATIVE ()?? 08/07/2022 04:43 Parainfluenza 4 by PCR NEGATIVE ()?? 08/07/2022 04:43 RSV by PCR NEGATIVE ()?? 08/07/2022 04:43 Bordetella Pertussis by PCR NEGATIVE ()?? 08/07/2022 04:43 Chlamydophila Pneumoniae by PCR NEGATIVE ()?? 08/07/2022 04:43 Mycoplasma Pneumoniae by PCR NEGATIVE ()?? 08/07/2022 04:43 COVID-19 (SARS-CoV-2) by PCR NEGATIVE ()?? 08/07/2022 04:43 Bordetella Parapertussis by PCR NEGATIVE ()?? 08/07/2022 04:43 ? Admission evaluation note * [facility] STARK, Maureen: PERFORM Event Display: Admission Note Authored Date: Patient: ??CINDA WATSON ? Age:??77 Years?Sex:??Female?:??1945?? Chief Complaint/Reason for Consultation SOB History of Present Illness Pt with extensive medical history of COPD/KANDY???on BiPAP nightly and home O2 inhalation as needed???2 L, pulmonary hypertension, antiphospholipid antibody syndrome with history of PE/DVT???on chronicwarfarin???goal of INR 1.5-2 due to history of platelet dysfunction, stage IIIa lung cancer status post left lower lobe lobectomy and neoadjuvant chemoradiation, radiation pulmonary fibrosis, nonobstructive CAD status post NSTEMI, heart failure with preserved ejection fraction, hypothyroidism, hypogammaglobulinemia, multiple hospital admission sin the past 1 year due to breathing issues, on ch 5 mg prednisone presented to hospital due to sudden onset of SOB and palpitations. ?? Pt states that she woke up last night to go to bathroom and took off?? her bipap??and then walked to kitchen to get water where she felt extremely SOB and felt that she could not breath. She also had palpitations. She then called 911 and was brought to ed where she was found to be desaturating into 60ies. She was placed on bipap immediately with good response and she also received Abx and Lasix in ed given cxr findings. ?? Review of Systems Constitutional:??No fever, chills, +ve weakness or fatigue. HEENT:?no blurred vision, yellow sclera. sore throat. Skin:??No rash or itching. Cardiovascular:??No chest pain, chest pressure or chest discomfort. No palpitations or pedal edema. Respiratory:??SOB, mild cough, Gastrointestinal:??No anorexia, nausea, vomiting or diarrhea. No abdominal pain or blood in stool. Genitourinary:??No burning micturition. No urinary frequency or incontinence. Neurologic:??No headache, dizziness, syncope. ??No change in bowel or bladder control. Hematologic:??No bleeding or bruising. ?? Objective Vital Signs?? Temperature: 98.3 DegF (07/29/22 04:59:00) Temperature Route: Oral (07/29/22 04:59:00) Pulse Rate: 90 bpm (07/29/22 12:39:00) Heart Rate Monitored:??94 bpm??High (07/29/22 07:54:00) Respiratory Rate: 22 br/min (07/29/22 12:39:00) Systolic Blood Pressure: 123 mm Hg (07/29/22 12:39:00) Diastolic Blood Pressure: 55 mm Hg (07/29/22 12:39:00) Blood pressure sites: Arm, left (07/29/22 07:54:00) Mean Arterial Pressure: 78 mm Hg (07/29/22 12:39:00) Pulse Pressure: 68 mm Hg (07/29/22 12:39:00) Oxygen Saturation: 97 % (07/29/22 12:39:00) Liters per Minute: 2 L/min (07/29/22 12:39:00) Mode of Delivery (Oxygen): Nasal cannula (07/29/22 12:39:00) FiO2: 40 % (07/29/22 07:54:00) Early Warning Score: 5 (07/29/22 12:40:13) ? Physical Exam General:??Alert, in no acute cardiopulmonary distress. Mental Status:??Oriented to person, place and time. appears anxious HEENT:??Atraumatic, DANIELLE, no pallor or jaundice, moist mucus membranes. Respiratory:??Clear to auscultation. No wheezing, rales or rhonchi. on 2 L nc Cardiovascular:??sinus tach, no M/R Gastrointestinal:??Abdomen soft, non-tender, non-distended. Normal bowel sounds. Genitourinary:??No costovertebral angle tenderness. Neurologic:??Cranial nerves II-XII grossly intact. No focal neurological deficits.?? Moves all extremities spontaneously. Sensation intact bilaterally. Skin:??No rashes or lesions.?? Musculoskeletal:??No cyanosis or clubbing. No gross deformities. Normal range of motion. ?? Assessment/Plan Assessment:??Pt with extensive medical hx presented with acute hypoxic resp failure in the setting of PNA and pulm edema.? Acute hypoxic resp failure resolved CAP pulm edema Acute on ch HFpEF COPD exacerbation severe pulm HTN Multiple recent hosp admission with similar presentation, on 2 L nc at baseline and CPAP at night time. have appnt with phtn clinic in [place] in aug. currently seeing Dr Kelly at [facility]. needed BiPAP in ed due to desaturation to 60ies, received IV Lasix and Abx in ed. CXR ~ pulm edema and atypical PNA, afebrile leukocytosis with left shift started on ceftriaxone and doxycycline DuoNeb nu and prn follow up on resp pathogen panel. prednisone 40 mg daily for now taper to her home dose 5 mg daily Lasix 20 mg iv bid, however once pt is euvolemic switch her back to her home dose of Lasix. ? History of antiphospholipid antibody syndrome ??History of VTE ??History of platelet dysfunction ??Patient follows with Dr. Mills??as well as Dr. Hogan from [facility].? on Coumadin goal INR 1.5-2? Hypothyroidism ??Continue levothyroxine 25 Monday to Monday ??Continue levothyroxine 50 Monday and Monday ?? Hypertension ??Continue metoprolol ER 50 ?? Anxiety ??Continue Valium as needed PT consult ?? DVT prophylaxis???on Coumadin at baseline, INR 2 ?? Diet???cardiac diet ?? CODE STATUS???full code ?? OMN: IV Abx and IV diuresis ?? Histories Allergies Allergies ?(Active and Proposed Allergies [...] History Alcohol Details:??Use: Never. 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 Exercise Details:??Regular exercise: No. Home/Environment Details:??Living situation: [...] Leukemia Other (Uncle, ): Leukemia ? Medications Inpatient Medications Medications (20) Active SCHEDULED: (12) Ceftriaxone 1 Gm Inj (Ceftriaxone Inj) ??1 Gm, IVPB, Every 24 hours Furosemide Inj (Lasix ??Inj) ??20 mg 2 mL, IV Push Slowly, 2 times a day Levothyroxine 25 mcg Tablet (levothyroxine 0.025 mg oral tablet) ??25 mcg, By Mouth, Every Monday, Monday and Monday Levothyroxine 25 mcg Tablet (levothyroxine 0.025 mg oral tablet) ??50 mcg, By Mouth, Every Mondayand Monday Levothyroxine 25 mcg Tablet (levothyroxine 0.025 mg oral tablet) ??25 mcg, By Mouth, Every Monday and Metoprolol 25 mg XL Tablet (Toprol XL 25 mg oral tablet, extended release) ??25 mg, By Mouth, 2 times a day Montelukast 10 mg Tablet (Singulair 10 mg oral tablet) ??10 mg, By Mouth, Daily at supper NaCl 0.9% Flush 3ml (NaCL 0.9% Flush) ??3 mL, IV Push, Every 8 hours PredniSONE 20 mg Tablet (predniSONE 20 mg oral tablet) ??40 mg, By Mouth, Daily Rosuvastatin 20 mg Tablet (rosuvastatin 20 mg oral tablet) ??20 mg, By Mouth, Every Monday, Monday and Monday Trazodone 50 mg Tablet (traZODone 50 mg oral tablet) ??100 mg, By Mouth, Daily at bedtime Warfarin 1 mg Tablet (Warfarin Tablet) ??1 mg, By Mouth, Daily at supper CONTINUOUS: (0) PRN: (8) Acetaminophen 325 mg Tablet (Acetaminophen Tablet) ??650 mg, By Mouth, Every 4 hours Dextromethorphan-Guaifenesin 20 mg-200 mg/10 mL Liqu UD (Robitussin DM Liquid) ??10 mL, By Mouth, Every 4 hours Diazepam 5 mg Tablet (diazepam 5 mg oral tablet) ??2.5 mg, By Mouth, 2 times a day Melatonin 3 mg Tablet (Melatonin Tablet) ??3 mg, By Mouth, Daily at bedtime NaCl 0.9% Flush 3ml (NaCL 0.9% Flush) ??3 mL, IV Push, Every 8 hours Polyethylene Glycol 17 Gm Powder (MiraLax Powder) ??17 Gm 1 pack/packet, By Mouth, Daily Senna 8.6 mg / Docusate 50 mg tablet (Docusate/Senna Tablet) ??1 tablet, By Mouth, 2 times a day Simethicone 80 mg Chewable Tablet (Simethicone Tablet) ??80 mg, Chew, 3 times a day ? Results Recent Labs BLOOD COUNT & DIFF WBC 18.5 k/mm3 (High)?? 07/29/2022 06:55 RBC 3.97 m/mm3 (Low)?? 07/29/2022 06:55 Hgb 12.5 Gm/dL ()?? 07/29/2022 06:55 Hct 39.7 % ()?? 07/29/2022 06:55 MCV 100.0 femtoliters ()?? 07/29/2022 06:55 MCH 31.5 pg ()?? 07/29/2022 06:55 MCHC 31.5 g/dL (Low)?? 07/29/2022 06:55 Platelet Count 289 k/mm3 ()?? 07/29/2022 06:55 RDW-SD 50.5 femtoliters (High)?? 07/29/2022 06:55 MPV 11.4 femtoliters ()?? 07/29/2022 06:55 Nucleated RBC (Automated) 0.0 #/100 WBC'S ()?? 07/29/2022 06:55 Abs. NRBC 0.0 k/mm3 ()?? 07/29/2022 06:55 Abs. Neut 14.9 k/mm3 (High)?? 07/29/2022 06:55 Abs. Lymph 2.2 k/mm3 ()?? 07/29/2022 06:55 Abs. [place] 1.0 k/mm3 (High)?? 07/29/2022 06:55 Abs. Eo 0.1 k/mm3 ()?? 07/29/2022 06:55 Abs. Baso 0.1 k/mm3 ()?? 07/29/2022 06:55 Neut % 80.7 % (High)?? 07/29/2022 06:55 Lymph % 11.7 % (Low)?? 07/29/2022 06:55 [place] % 5.2 % ()?? 07/29/2022 06:55 Eos % 0.6 % ()?? 07/29/2022 06:55 Baso % 0.6 % ()?? 07/29/2022 06:55 Imm Gran 1.2 % ()?? 07/29/2022 06:55 Abs. Imm Gran 0.2 k/mm3 ()?? 07/29/2022 06:55 ?? CARDIAC Nt-Probnp 1239 pg/mL (High)?? 07/29/2022 06:55 High Sensitivity Troponin (HSTnT) 54 ng/L (Critical)?? 07/29/2022 09:58 ?? CHEM GENERAL Sodium 137 mmol/L ()?? 07/29/2022 06:55 Potassium 3.4 mmol/L (Low)?? 07/29/2022 06:55 Chloride 93 mmol/L (Low)?? 07/29/2022 06:55 Bicarbonate Level 31 mmol/L (High)?? 07/29/2022 06:55 Anion Gap 13 ()?? 07/29/2022 06:55 Glucose Level 189 mg/dL (High)?? 07/29/2022 06:55 BUN 18 mg/dL ()?? 07/29/2022 06:55 Creatinine-Blood 0.8 mg/dL ()?? 07/29/2022 06:55 Estimated GFR Creatinine 75 ML/MIN/1.73 M2 ()?? 07/29/2022 06:55 Calcium 10.3 mg/dL ()?? 07/29/2022 06:55 Calcium, Ionized pH Corrected 1.32 mmol/L ()?? 07/29/2022 06:55 ?? HEME OTHER Hold Blue Top SPECIMEN DISCARDED AFTER 4 HOURS. ()?? 07/29/2022 06:55 ?? VIROLOGY COVID-19 by RT-PCR NEGATIVE ()?? 07/29/2022 08:07 ? EKG study * Event Display: EKG Authored Date: * Event Display: ECG 12-Lead Authored Date: Please click on pdf link to open report * Event Display: ECG 12-Lead Authored Date: Ventricular Rate: 81 BPM Atrial Rate: 81 BPM P-R Interval: 168 ms QRS Duration: 118 ms Q-T Interval: 410 ms QTC Calculation(Bazett): 476 ms P [place]: 75 degrees R [place]: -63 degrees T [place]: 81 degrees Normal sinus rhythm Left anterior fascicular block Left ventricular hypertrophy with QRS widening and repolarization abnormality ( R in aVL , [place] product ) Abnormal ECG When compared with ECG of 09-AUG-2022 10:08, MANUAL COMPARISON REQUIRED, DATA IS UNCONFIRMED Confirmed by KENYA SHARMA MD ([id number]) on 08/10/2022 12:01:45 PM [place]: KENYA SHARMA MD * Event Display: ECG 12-Lead Authored Date: Please click on pdf link to open report * Event Display: ECG 12-Lead Authored Date: Ventricular Rate: 80 BPM Atrial Rate: 80 BPM P-R Interval: 146 ms QRS Duration: 120 ms Q-T Interval: 408 ms QTC Calculation(Bazett): 470 ms P [place]: 65 degrees R [place]: -55 degrees T [place]: 73 degrees Normal sinus rhythm Left anterior fascicular block Left ventricular hypertrophy with QRS widening and repolarization abnormality ( R in aVL , [place] product , [place]hilt-Cho ) Abnormal ECG When compared with ECG of 03-AUG-2022 13:29, Premature atrial complexes are no longer Present Borderline criteria for Lateral infarct are no longer Present Confirmed by JOSSELYN GUTIERREZ MD ([id number]) on 08/09/2022 6:48:23 AM [place]: JOSSLEYN GUTIERREZ MD * Event Display: ECG 12-Lead Authored Date: [id number] Please click on pdf link to open report * Event Display: ECG 12-Lead Authored Date: [id number] Ventricular Rate: 82 BPM Atrial Rate: 82 BPM P-R Interval: 140 ms QRS Duration: 112 ms Q-T Interval: 410 ms QTC Calculation(Bazett): 479 ms P [place]: 59 degrees R [place]: -57 degrees T [place]: 65 degrees Sinus rhythm with Premature atrial complexes Left anterior fascicular block Left ventricular hypertrophy with repolarization abnormality Possible Lateral infarct , age undetermined Abnormal ECG When compared with ECG of 29-JUL-2022 06:47, Premature atrial complexes are now Present Borderline criteria for Lateral infarct are now Present Confirmed by KENYA SHARMA MD ([id number]) on 08/03/2022 3:51:07 PM [place]: KENYA SHARMA MD Heart * Event Display: Echocardiogram - Complete Authored Date: [id number] Transthoracic Echocardiography Report (TTE) Patient Demographics Patient Name CINDA WATSON Date of Study 08/11/2022 Corporate Gender Female Facility Race Ethnicity Date of 1945 Height: 62.99 inches Age 77 year(s) Weight: 154.34 pounds Accession Number [id number] BSA: 1.73 m2 Room Number M610 BMI: 27.35 kg/m2 Referring Physician Donna Cooper Interpreting Elizabeth Bryson MD PA-C Physician Director Of Sales Philipp Blanton [facility] Indications Mitral regurgitation. Clinical History SOB COPD CHF SEVERE MR, S/P MV CLIP DONE 08/10. Study Data Type of Study TTE procedure:Echo Complete-Doppler, Colorflow, M-Mode. Study Date08/11/2022 Start Time: 09:46 AM Study Location: [facility] Adult Echo Study Status: Bedside Patient Status: Routine Technical Quality: Adequate Blood Pressure:115/41 mmHg EKG: Normal sinus rhythm HR: 89 bpm Allergies - Contrast. - Cipro. - Erythromycin. - Levaquin. - Morphine. - Penicillins. - Sulfa drugs. - Vancomycin. - Other allergy:(avelox, biaxin, bactrim, flagyl, gastrografin, gentamycin, novocain, voltaren, zithromax). 2D Measurements LV Diastolic Dimension: 3.3 cm LV Systolic Dimension: 1.5 cm LV Septum Diastolic: 1.1 cm LV PW Diastolic: 1.1 cm AO Root Dimension: 3 cm LA Dimension: 3.2 cm LA ESV (BP):42.5 ml LVOT Stroke Volume: 69.71 ml LA ESV Index: 25 ml/m2 Stroke Volume Index40.29 ml/m2 LVOT: 2 cm Cardiac Index:3.58 l/min/m2 Ascending Aorta:3 cm Doppler Measurements AV Peak Velocity: 148 cm/s MV Peak E-Wave: 111 cm/s AV Peak Gradient: 8.76 mmHg MV Peak A-Wave: 138 cm/s AV Mean Gradient: 5 mmHg MV E/A Ratio: 0.8 AV VTI:29.1 cm MV P1/2t: 56 msec LVOT Peak Velocity: 122 cm/s MV Mean Gradient: 8 mmHg LVOT VTI22.2 cm MV Area (continuity): 1.39 cm2 AV Area (Continuity):2.4 cm2 MV Deceleration Time: 190 msec AV P1/2t: 269 msec MV Area (PHT): 3.93 cm2 TR Velocity:347 cm/s TR Gradient:48.16 mmHg PV Peak Velocity: 117 cm/s PV Peak Gradient: 5.48 mmHg E' Septal Velocity: 2.94 cm/s E' Lateral Velocity: 2.61 cm/s E/Med E':37.7551 E/Lat E':42.74988 Cardiac Anatomy Left Ventricle/Interventricular Septum The left ventricular size is normal. The left ventricular wall thickness is mildly increased. Vigorous LV function. The left ventricular ejection fraction is >70 %. There are no definite regional wall motion abnormalities. Unable to assess diastolic function . Left Atrium/Interatrial Septum The left atrium is poorly visualized. The left atrium is dilated. There is an atrial septal defect. Aortic Valve Trileaflet aortic valve. There is no aortic stenosis. There is mild aortic regurgitation. Mitral Valve s/p mitral clip. The mitral valve appears thickened. There is mild mitral regurgitation. The mitral valve mean gradient is 8 mmHg at 95bpm. There is mild mitral stenosis. Aorta The ascending aorta and aortic root are normal in size. Right Ventricle The right ventricle is dilated. Right ventricular systolic function appears preserved. Right Atrium The right atrium is dilated. Pulmonic Valve The pulmonic valve is normal in structure and function. There is trace pulmonic regurgitation. Tricuspid Valve The tricuspid valve is grossly normal. There is moderate tricuspid valve regurgitation. Pumonary Artery The pulmonary artery systolic pressure estimation is 50-55 mmHg. There is mild pulmonary hypertension. Venous Structures The inferior vena cava size is normal with normal inspiratory collapse. Pericardium/Extracardiac There is a small pericardial effusion posteriorly . Summary The left ventricular size is normal. The left ventricular wall thickness is mildly increased. Vigorous LV function. The left ventricular ejection fraction is >70 %. There are no definite regional wall motion abnormalities. Unable to assess diastolic function . The left atrium is poorly visualized. The left atrium is dilated. There is an atrial septal defect. Trileaflet aortic valve. There is no aortic stenosis. There is mild aortic regurgitation. s/p mitral clip. The mitral valve appears thickened. There is mild mitral regurgitation. The mitral valve mean gradient is 8 mmHg at 95bpm. There is mild mitral stenosis. The right ventricle is dilated. Right ventricular systolic function appears preserved. The tricuspid valve is grossly normal. There is moderate tricuspid valve regurgitation. The pulmonary artery systolic pressure estimation is 50-55 mmHg. There is mild pulmonary hypertension. There is a small pericardial effusion posteriorly . Comparison Comparison is made to the study of July 31, 2022. Mitral clip is in place, degree of MR has decreased. Degree of TR has decreased, there is an ASD, PASP is mildly lower. There is a small posterior pericardial effusion. Signature * Event Display: Echocardiogram - Complete Authored Date: [id number] * Event Display: Echocardiogram - Complete Authored Date: [id number] Transthoracic Echocardiography Report (TTE) Patient Demographics Patient Name CINDA WATSON Date of Study 07/31/2022 Corporate Gender Female Facility Race Ethnicity Date of 1945 Height: 62.99 inches Age 77 year(s) Weight: 154.34 pounds Accession Number [id number] BSA: 1.73 m2 Room Number M610 BMI: 27.35 kg/m2 Referring Physician Savannah Jones Interpreting Tami Anne MD Physician Director Of Sales Guillermina Nolan RCS Indications Heart failure. Clinical History COPD. KANDY/BiPAP/home O2 2L Pulmonary hypertension. hx: Pulmonary embolus/DVT Lung CA/ s/p lower lobe lobectomy and neoadjuvant chemoradiation Radiation pulmonary fibrosis Nonobstructive Coronary artery disease. NSTEMI Heart FAilure GERD Hypercholesterolemia. Dyslipidemia. Hypertension. Study Data Type of Study TTE procedure:Echo Complete-Doppler, Colorflow, M-Mode. Study Date07/31/2022 Start Time: 08:43 AM Study Location: [facility] [place] Adult Echo Study Status: Bedside Patient Status: Routine Technical Quality: Technically difficult due to body habitus. Blood Pressure:128/66 mmHg EKG: Sinus with ectopy HR: 97 bpm Allergies - Contrast. - Cipro. - Erythromycin. - Levaquin. - Morphine. - Penicillins. - Sulfa drugs. - Vancomycin. - Other allergy:(avelox, biaxin, bactrim, flagyl, gastrografin, gentamycin, novocain, voltaren, zithromax). 2D Measurements LV Diastolic Dimension: 3.8 cm LV Systolic Dimension: 2.3 cm LV Septum Diastolic: 1 cm LV PW Diastolic: 0.8 cm AO Root Dimension: 2.9 cm LA Dimension: 3.9 cm LA ESV (BP):61.8 ml LVOT Stroke Volume: 31.74 ml LA ESV Index: 36 ml/m2 Stroke Volume Index18.35 ml/m2 LVOT: 1.9 cm Cardiac Index:1.78 l/min/m2 Ascending Aorta:2.6 cm Doppler Measurements AV Peak Velocity: 118 cm/s MV Peak E-Wave: 151 cm/s AV Peak Gradient: 5.57 mmHg MV Peak A-Wave: 100 cm/s MV E/A Ratio: 1.51 LVOT Peak Velocity: 78.9 cm/s MV P1/2t: 50 msec LVOT VTI11.2 cm MV Mean Gradient: 5 mmHg MV Area (continuity): 0.98 cm2 AV P1/2t: 209 msec MV Deceleration Time: 171 msec TR Velocity:376 cm/s MV Area (PHT): 4.4 cm2 TR Gradient:56.55 mmHg PV Peak Velocity: 65.6 cm/s E' Septal Velocity: 5.98 cm/s PV Peak Gradient: 1.72 mmHg E' Lateral Velocity: 5.98 cm/s E/Med E':25.90309 E/Lat E':25.56486 Cardiac Anatomy Left Ventricle/Interventricular Septum Left ventricular wall thickness is normal. Normal left ventricular size and function with EF 55-60%. No focal wall motion abnormalities. Unable to assess diastolic function due to mitral stenosis and regurgitation. Left Atrium/Interatrial Septum The left atrium is mildly dilated. Aortic Valve The aortic valve is trileaflet. No aortic stenosis. There is mild aortic regurgitation. Mitral Valve There is mild thickening of the anterior leaflet. No prolapse. There is severe mitral regurgitation. There is mild to moderate mitral stenosis (mean gradient 6 mmHg at HR 94 bpm) Mild posterior mitral annular calcification. Aorta The ascending aorta and aortic root are normal in size (indexed for sex and BSA). Right Ventricle Normal right ventricular size and function. Right Atrium The right atrium is normal in size. Pulmonic Valve The pulmonic valve was not well visualized. Trace pulmonic regurgitation. No pulmonic stenosis. Tricuspid Valve The tricuspid valve is grossly normal. There is moderate to severe tricuspid valve regurgitation. Pumonary Artery Moderate-severe pulmonary hypertension with PA systolic pressure 65 mmHg, mean PA pressure 34 mmHg, PVR 2.4 (assuming RA pressure of 3 mmHg). Venous Structures Normal IVC size and respiratory collapse. Pericardium/Extracardiac There is a significant left sided pleural effusion. Summary Normal left ventricular size and function with EF 55-60%. No focal wall motion abnormalities. Normal right ventricular size and function. The left atrium is mildly dilated. There is mild aortic regurgitation. There is severe mitral regurgitation with a posteriorly directed jet (peak MV E wave velocity 1.5 m/s, systolic pulmonary vein flow reversal, ERO 0.47 cm2, RV 61 ml) There is mild to moderate mitral stenosis (mean gradient 6 mmHg at HR 94 bpm) There is moderate to severe tricuspid valve regurgitation. Moderate-severe pulmonary hypertension with PA systolic pressure 65 mmHg, mean PA pressure 34 mmHg, PVR 2.4 (assuming RA pressure of 3 mmHg). There is a significant left sided pleural effusion. Comparison Comparison is made to the study of July,, September 24, 2021. The severity of mitral and tricuspid regurgitation has significantly increased. Pulmonary hypertension is now evident. Signature * Event Display: Echocardiogram - Complete Authored Date: [id number] US Heart Transesophageal * Event Display: Trans-esophageal Echocardiogram Authored Date: [id number] Transesophageal Echocardiography Report (ESME) Patient Demographics Patient Name CINDA WATSON Date of Study 08/10/2022 Corporate Gender Female Facility Race Ethnicity Date of 1945 Height: 62.99 inches Age 77 year(s) Weight: 154.34 pounds Accession Number [id number] BSA: 1.73 m2 Room Number M610 BMI: 27.35 kg/m2 Referring Physician Not on Staff Interpreting Stef Wolf MD Referring MD Physician Charlotte KAPOOR Director Of Sales Shruti Walker [facility] Indications Mitral valve disease, non-rheumatic. Study Data Type of Study ESME procedure:ESME with Doppler and Colorflow, 3D Rendering with post processing. Procedure Information:The procedure, including risks and benefits, was explained to the patient and informed consent was obtained. Time out was performed pre-procedure. The transesophageal probe was inserted by the attending bottling attendant. There were no complications. 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 - Cipro. - Erythromycin. - Levaquin. - Morphine. - Penicillins. - Sulfa drugs. - Vancomycin. - Other allergy:(avelox, biaxin, bactrim, flagyl, gastrografin, gentamycin, novocain, voltaren, zithromax). 2D Measurements AO Root Dimension: 3.13 cm Doppler Measurements MV Mean Gradient: 3 mmHg Cardiac Anatomy Left Ventricle/Interventricular Septum The left ventricular size is normal. The LV systolic function is normal . Left Atrium/Interatrial Septum There is a atrial septal defect post procedure. Aortic Valve The aortic valve is trileaflet . The aortic valve appears mildly calcified. There is no aortic stenosis. There is mild aortic regurgitation. Real time (live) 3D imaging reveals normal aortic valve leaflet structure and function. Mitral Valve The mitral valve appears rheumatic . The mitral valve appears mildly to moderately thickened. There is moderate apical tethering of the anterior leaflet of the mitral valve. There is severe apical tethering of the posterior leaflet of the mitral valve. The chordal structure is thickened and calcified. The mitral valve mean gradient is 3 mmHg pre and post procedure. There is severe mitral regurgitation pre-procedure. There is mild mitral regurgitation post procedure. Real time (live) 3D imaging reveals mitral valve clip well positioned with double orifice mitral valve. The lateral orifice measures 1.71 cm2 by 3D-guided 2D planimetry (post-processing). The medial orifice measures 0.54 cm2 by 3D-guided 2D planimetry (post-processing). Aorta The aortic root is normal in size. Right Ventricle The right ventricle is dilated. Right ventricular systolic function appears preserved. Right Atrium The right atrium is dilated. Pulmonic Valve The pulmonic valve appears grossly normal. Tricuspid Valve The tricuspid valve appears mildly thickened. There is moderate to severe tricuspid valve regurgitation pre-procedure. There is mild to moderate tricuspid valve regurgitation post procedure. Venous Structures There is systolic flow reversal of pulmonary venous flow pre-procedure. There is normal pulmonary venous flow post procedure. Summary Trans-septal puncture was performed under x-plane guidance. Catheter and Mitraclip were introduced across the atrial septal and steered down to the mitral valve clear of atrial structures under 2D and 3D guidance. Mitraclip NT was positioned for deployment using x-plane and 3D enface imaging. Mitral leaflet insertion into Mitraclip was confirmed, and Mitraclip was deployed. Impressions Successful mitral valve [id number] repair with reduction of mitral regurgitation from severe to mild, with normalization in pulmonary venous slow and no increase in mitral valve gradient. Comparison Comparison is made to the external study of August 02, 2022. Improved mitral regurgitation since previous study. Signature * Event Display: Trans-esophageal Echocardiogram Authored Date: [id number] * Event Display: Trans-esophageal Echocardiogram Authored Date: [id number] Transesophageal Echocardiography Report (ESME) Patient Demographics Patient Name CINDA WATSON Date of Study 08/02/2022 Corporate Gender Female Facility Race Ethnicity Date of 1945 Height: 62.99 inches Age 77 year(s) Weight: 154.34 pounds Accession Number [id number] BSA: 1.73 m2 Room Number M610 BMI: 27.35 kg/m2 Referring Physician Sandeep Petit MD Interpreting Stef Wolf MD Physician Director Of Sales Indications Mitral regurgitation. Study Data Type of Study ESME procedure:ESME with Doppler and Colorflow, 3D Rendering with post processing. Procedure Information:The procedure, including risks and benefits, was explained to the patient and informed consent was obtained. Time out was performed pre-procedure. The transesophageal probe was inserted by the anesthesiologist after multiple failed attempts by the bottling attendant. There were no complications. Heart sounds regular, positive murmur . Breath sounds clear throughout all lobes . Study Date08/02/2022 Start Time: 09:37 AM Study Location: [facility] ESME Study Status: OR Patient Status: Routine Technical Quality: Adequate Blood Pressure:156/67 mmHg EKG: Normal sinus rhythm HR: 79 bpm ESME Performed By: Stef Wolf MD Type of Anesthesia: Anesthesia administered by anesthesiologist. Allergies - Contrast. - Cipro. - Erythromycin. - Levaquin. - Morphine. - Penicillins. - Sulfa drugs. - Vancomycin. - Other allergy:(avelox, biaxin, bactrim, flagyl, gastrografin, gentamycin, novocain, voltaren, zithromax). 2D Measurements LV Diastolic Dimension: 4.69 cm AO Root Dimension: 3.13 cm Ascending Aorta:2.99 cm Cardiac Anatomy Left Ventricle/Interventricular Septum The left ventricular size is normal. The LV systolic function is normal . Left Atrium/Interatrial Septum The left atrial appendage is small . There is no thrombus in the left atrial appendage. The interatrial septum appears intact. Aortic Valve The aortic valve is trileaflet . The aortic valve appears mildly calcified. Real time (live) 3D imaging reveals thickened aortic valve leaflets with normal function. There is no aortic stenosis. There is trace aortic regurgitation. Mitral Valve The mitral valve appears rheumatic . The mitral valve appears mildly to moderately thickened. There is moderate apical tethering of the anterior leaflet of the mitral valve. There is severe apical tethering of the posterior leaflet of the mitral valve. The chordal structure is thickened and calcified. Mitral regurgitation varied from moderate at the beginning of case, then became mild associated with some mild hypotension, then unequivocally severe after phenylephrine was administered to support blood pressure, with corresponding changes in 2D color, 3D color findings, as well as spectral pulsed and continuous wave Doppler. Real time (live) 3D imaging reveals thickened leaflets with mildly restricted opening and a small color jet at the medial commissure; when regurgitation became severe there was a visible gap at the medial commissure and a wide color jet that expanded toward A2-P2 as well. The mitral valve area by 3D-guided planimetry (post processing) is 3.84 cm2. Aorta The ascending aorta and aortic root are normal in size. Right Ventricle The right ventricle is normal in size. Right ventricular systolic function appears preserved. Pulmonic Valve The pulmonic valve appears grossly normal. There is mild pulmonic regurgitation. Tricuspid Valve The tricuspid valve appears mildly thickened. There is moderate to severe tricuspid valve regurgitation. Pumonary Artery The pulmonary artery appears grossly normal. Venous Structures The left upper pulmonary vein demonstrates systolic flow reversal . The right upper pulmonary vein demonstrates late systolic flow reversal . Pericardium/Extracardiac There is no significant pericardial effusion. Summary The left ventricular size is normal. The LV systolic function is normal . The aortic valve is trileaflet . The aortic valve appears mildly calcified. Real time (live) 3D imaging reveals thickened aortic valve leaflets with normal function. There is no aortic stenosis. There is trace aortic regurgitation. The mitral valve appears rheumatic . The mitral valve appears mildly to moderately thickened. There is moderate apical tethering of the anterior leaflet of the mitral valve. There is severe apical tethering of the posterior leaflet of the mitral valve. The chordal structure is thickened and calcified. Mitral regurgitation varied from moderate at the beginning of case, then became mild associated with some mild hypotension, then unequivocally severe after phenylephrine was administered to support blood pressure, with corresponding changes in 2D color, 3D color findings, as well as spectral pulsed and continuous wave Doppler. Real time (live) 3D imaging reveals thickened leaflets with mildly restricted opening and a small color jet at the medial commissure; when regurgitation became severe there was a visible gap at the medial commissure and a wide color jet that expanded toward A2-P2 as well. The right ventricle is normal in size. Right ventricular systolic function appears preserved. 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 Signature * Event Display: Trans-esophageal Echocardiogram Authored Date: * Event Display: Trans-esophageal Echocardiogram Authored Date: Hospital Progress note * Mami Vicente RN: PERFORM, SIGN, VERIFY Event Display: Progress Note Hospital Authored Date: [id number] Patient: CINDA WATSON Age: 77 years Sex: Female : 1945 Associated Diagnoses: None Author: Mami Vicente RN Findings Problem Related to Alteration in Cardiac Function (new) : Alteration in Cardiac Function/new 08/14/2022 10:00 EST Alteration in Cardiac Status Related to ACS Goals & Outcomes, Cardiac Status Pt will resume/maintain adequate cardiac output, Pt will resume/maintain adequate hemodynamic status, Pt will resume/maintain adequate respiratory function, Pt will resume/maintain intact neuro function, Pt will maintain adequate GI/ function appropriate for pt, Pt will maintain adequate nutrition status, Pt/caregiver will state understanding of diagnosis, Pt/caregiver will state strategies to reduce risk factors, Resolved problem, Goals/Outcomes met Cardiac Interventions Implemented Assess/monitor cardiac status, Assess/monitor neuro status, Assess/monitor respiratory status, Assess for tolerance of IV infusions; verify rate & dose, Call/Report variances in ECG to provider, Document & Monitor O2 Sats; Administer O2 as ordered, Ensure adequate caloric intake, If no bowel movement in 3 days activate bowel regime, Monitor & document daily weight, Monitor anticoagulation values, Monitor ECG w/administration of antiarrhythmics (CO 13.420), Obtain 12 Lead ECG and CXR as ordered, Prep pt for treatments & procedures, Teach/encourage deep breath & cough exercises, Teach/encourage use of incentive spirometer, Team conversation regarding appropriate level of care, Turn & reposition Q2 hours per activity restrictions, Assess for chest pain, document characteristics, Bed Rest during periods of chest discomfort, Document interventions & what relieved chest pain, Monitor for anxiety, shortness of breath, diaphoresis,Monitor VS with each episode of chest pain BH Goals/Interventions, Cardiac Yes Cardiac, Problem Start 08/06/2022 13:40 Reviewed Plan with, Cardiac Status Patient Patient Progression, Cardiac Status Patient progressing according to plan . Nursing Data Vital Signs : VITAL SIGNS SECTION 08/14/2022 14:05 EST Early Warning Score 2.00 08/14/2022 14:05 EST Temperature 97.2 DegF Temperature Route Temporal Pulse Rate 88 bpm Respiratory Rate 18 br/min Systolic Blood Pressure 112 mm Hg Diastolic Blood Pressure 57 mm Hg Blood pressure sites Arm, right Mean Arterial Pressure 75 mm Hg Pulse Pressure 55 mm Hg Oxygen Saturation 99 % Mode of Delivery (Oxygen) Room air . Evaluation Alert and oriented times three, on heparin drip as ordered, Md to discharge patient to rehab, covidswab completed, will be bridged with Lovenox and warfarin per Md, gave Valium for anxiety times twotoday, up with walker and assist, right groin Band-Aid intact, right wild wrap intact noted placed for Hematoma, rhythm sinus, will continue to monitor needs.. Discharge Information Functional Assessment Personal hygiene: self. Feeding ability: self. Standing ability: with assist. Mobility assistance: ambulate, assist of 1. Chair transfer: with assist. Wheelchair: self. Elimination: last bowel movement 08/13/2022 14:24:00. Pain Assessment Level on transfer: 0. Psycho-Social Assessment Affect/behavior: cooperative. Mental status: alert. Orientation: person, place, time. * Kelly Hernandez RN: SIGN, PERFORM, VERIFY Event Display: Progress Note Hospital Authored Date: [id number] Patient: CINDA WATSON Age: 77 years Sex: Female : 1945 Associated Diagnoses: None Author: Kelly Hernandez RN Findings Problem Related to Alteration in Cardiac Function (new) : Alteration in Cardiac Function/new 08/13/2022 8:00 EST Alteration in Cardiac Status Related to ACS Goals & Outcomes, Cardiac Status Pt will resume/maintain adequate cardiac output, Pt will resume/maintain adequate hemodynamic status, Pt will resume/maintain adequate respiratory function, Pt will resume/maintain intact neuro function, Pt will maintain adequate GI/ function appropriate for pt, Pt will maintain adequate nutrition status, Pt/caregiver will state understanding of diagnosis, Pt/caregiver will state strategies to reduce risk factors, Resolved problem, Goals/Outcomes met Cardiac Interventions Implemented Assess/monitor cardiac status, Assess/monitor neuro status, Assess/monitor respiratory status, Assess for tolerance of IV infusions; verify rate & dose, Call/Report variances in ECG to provider, Document & Monitor O2 Sats; Administer O2 as ordered, Ensure adequate caloric intake, If no bowel movement in 3 days activate bowel regime BH Goals/Interventions, Cardiac Yes Cardiac, Problem Start 08/06/2022 13:40 Reviewed Plan with, Cardiac Status Patient Patient Progression, Cardiac Status Patient progressing according to plan . Nursing Data Cardiac Data. : Cardiac Data. 08/13/2022 8:26 EST Skin Temperature Upper Extremities Warm, Dry Skin Temperature Lower Extremities Warm, Dry Heart Sounds S1, S2 Cardiac Rhythm Normal sinus rhythm Capillary Refill < 3 seconds Edema, Left Pretibial None Edema, Right Pretibial None Ankle, left None Ankle, right None Pedal, left None Pedal, right None gambling monitor Yes Cardiovascular WNL except 08/13/2022 7:15 EST Hgb 10.5 Gm/dL L Hct 32.9 % L APTT 62.1 seconds H . Gastrointestinal Data. : Gastrointestinal Data. 08/13/2022 8:26 EST Abdomen Soft, Non-tender Bowel Sounds LUQ Present Bowel Sounds RUQ Present Bowel Sounds LLQ Present Bowel Sounds RLQ Present Last Bowel Movement 08/09/2022 GI WNL except . Vital Signs : VITAL SIGNS SECTION 08/13/2022 14:34 EST Temperature 97.0 DegF Temperature Route Temporal Pulse Rate 88 bpm Respiratory Rate 17 br/min Systolic Blood Pressure 97 mm Hg Diastolic Blood Pressure 52 mm Hg L Blood pressure sites Arm, right Mean Arterial Pressure 67 mm Hg Pulse Pressure 45 mm Hg Oxygen Saturation 96 % Mode of Delivery (Oxygen) Room air 08/13/2022 7:55 EST Temperature 96.9 DegF Temperature Route Temporal Pulse Rate 77 bpm Respiratory Rate 18 br/min Systolic Blood Pressure 95 mm Hg Diastolic Blood Pressure 53 mm Hg L Blood pressure sites Arm, right Mean Arterial Pressure 67 mm Hg Pulse Pressure 42 mm Hg Oxygen Saturation 98 % Mode of Delivery (Oxygen) Room air . Narrative/Incidental a&o x3. NSR on tele. ambulating with a stand by assist and walker in the room. heparin drip is running at 16units/kg/hour with most recent ptt being therapeutic at 62.1; next ptt is due tomorrow morning. INR was 1.2 this morning. pt is undergoing a heparin to Coumadin bridge. pt had bowel movement this afternoon. see cis for full biophysical assessment.. Discharge Information Pulmonary Rehab Discharge : Pulmonary Rehab Discharge Status 08/13/2022 1:21 EST CPAP/BiPAP Mask Type Full CPAP/BiPAP Mask Size Other: Pt own mask 08/12/2022 22:58 EST CPAP/BiPAP Mask Type Full CPAP/BiPAP Mask Size Other: Pt own mask 08/08/2022 0:13 EST CPAP/BiPAP Mask Size Other: patient own mask Rehabilitation Discharge : Rehab Discharge Index 08/12/2022 9:17 EST Comments on treatment indicated 77 y/o F with multiple recent admissions for CHF,pneumonia and hypoxia, found with sever mitral regurg and now s/p transcatheter mitral valve repairwith Mitralclip. PT to see for therex, bed mobility, transfers, balance and gait trng. Walker: distance 20-50 Distance pt will ambulate 75 ft with ww Full chart review completed Yes Hospital course Hospital course Other findings Pt having some difficulty with mobility due to Right lower leg and foot pain. Pt required Min A for sit to stand transfer and cues for technique. Pt ambulated only a short distance with walker. PT to follow and pt will benefit from short term rehab. Plan of care PT Gait training, Transfer training, Therapeutic exercise, Functional Activities, Balance training * Bobby Ontiveros MD: PERFORM Event Display: Progress Note Hospital Authored Date: [id number] Patient: ??CINDA WATSON ? Age:??77 Years?Sex:??Female?:??1945?? Subjective Patient is seen and examined at bedside;??overnight events reviewed. In better spirits today. Has generalized weakness. Hematoma in the leg is stable. PT recommended rehab. On heparin drip; ?? Review of Systems A full review of systems was completed and is otherwise negative except as mentioned above. Objective Measurements?? Height: 160.02 cm (08/13/22) Weight: 56.4 kg (08/13/22) Dry Weight: 57.1 kg (07/30/22) Body Mass Index: 22.46 kg/m2 (08/11/22) ? Vital Signs?? Temperature: 97 DegF (08/13/22 14:34:00) Temperature Route: Temporal (08/13/22 14:34:00) Pulse Rate: 88 bpm (08/13/22 14:34:00) Heart Rate Monitored: 81 bpm (08/12/22 22:58:00) Respiratory Rate: 17 br/min (08/13/22 14:34:00) Systolic Blood Pressure: 97 mm Hg (08/13/22 14:34:00) Diastolic Blood Pressure:??52 mm Hg??Low (08/13/22 14:34:00) Blood pressure sites: Arm, right (08/13/22 14:34:00) Mean Arterial Pressure: 67 mm Hg (08/13/22 14:34:00) Pulse Pressure: 45 mm Hg (08/13/22 14:34:00) Oxygen Saturation: 96 % (08/13/22 14:34:00) Mode of Delivery (Oxygen): Room air (08/13/22 14:34:00) FiO2: 21 % (08/13/22 01:21:00) Early Warning Score: 3 (08/13/22 14:35:19) ? Physical Exam ??Constitutional: Alert, in no acute distress. ?Head EENT: PERRL.??NCAT.?Neck: Supple. No obvious LAD. ?Respiratory: CTAB. No use of accessory muscles. ?Cardiovascular: S1S2 present. No obvious JVD. ?Gastrointestinal: Abdomen soft, non-tender, non-distended. Bowel sounds present. ?Genitourinary: No CVA tenderness. Genital exam deferred. ?Extremities: No lower extremity pitting??edema. No cyanosis or clubbing. ??Right leg??swelling on gricelda-medial calf??appears to be hematoma, conformed with??ultrasound R forefoot??TTP without obvious point tenderness ?Neurologic: Alert, generally appropriate. Speech normal. No gross focal neurological deficits. _ Inpatient Medications Medications (28) Active SCHEDULED: (17) Albuterol 0.083% Inhalation Solution (Albuterol 0.083% inhalation edwin) ??2.5 mg 3 mL, BAND Nebulizer, 4 times a day Breo Ellipta 200 mcg / 25 mcg Inhaler (Breo Ellipta 200 mcg-25 mcg Inhaler) ??1 puffs, Inhalation, Daily Guaifenesin 200mg/10mL Syrup UD (GuaiFENEsin Liquid) ??200 mg 10 mL, By Mouth, 3 times a day Levothyroxine 25 mcg Tablet (levothyroxine 0.025 mg oral tablet) ??25 mcg, By Mouth, Every Monday, Monday and Monday Levothyroxine 25 mcg Tablet (levothyroxine 0.025 mg oral tablet) ??50 mcg, By Mouth, Every Mondayand Monday Levothyroxine 25 mcg Tablet (levothyroxine 0.025 mg oral tablet) ??25 mcg, By Mouth, Every Monday and Lidocaine 5% Topical Patch (Lidocaine 5% Patch) ??1 each, Topically, Daily Metoprolol 25 mg XL Tablet (Toprol XL 25 mg oral tablet, extended release) ??50 mg, By Mouth, 2 times a day Montelukast 10 mg Tablet (Singulair 10 mg oral tablet) ??10 mg, By Mouth, Daily at supper NaCl 0.9% Flush 3ml (NaCL 0.9% Flush) ??3 mL, IV Push, Every 8 hours PredniSONE 5 mg Tablet (predniSONE 5 mg oral tablet) ??5 mg, By Mouth, Daily Remove Patch (Remove Lidocaine Patch) ??1 each, Topically, Daily at bedtime Rosuvastatin 20 mg Tablet (rosuvastatin 20 mg oral tablet) ??20 mg, By Mouth, Every Monday, Monday and Monday Senna 8.6 mg / Docusate 50 mg tablet (Docusate/Senna Tablet) ??1 tablet, By Mouth, 2 times a day Trazodone 50 mg Tablet (traZODone 50 mg oral tablet) ??100 mg, By Mouth, Daily at bedtime Trazodone 50 mg Tablet (traZODone 50 mg oral tablet) ??25 mg, By Mouth, Every 12 hours Warfarin 3 mg Tablet (Warfarin Tablet) ??3 mg, By Mouth, Daily CONTINUOUS: (1) Heparin 25,000 units / 250 mL D5W premix 56049 units [16 units/kg/hr] + D5%W Premixed IV 250 mL (Heparin 25,000 units in 250 mL Premix 09393 units [16 units/kg/hr] + D5%W Premixed IV 250 mL) ??250 mL, IV Infusion, 9.14 mL/hr PRN: (10) Acetaminophen 325 mg Tablet (Acetaminophen Tablet) ??650 mg, By Mouth, Every 4 hours Al hydroxide/Mg hydroxide/simethicone 200 mg-200 mg-20 mg/5 mL Susp UD (Maalox Plus Liquid) ??15 mL, By Mouth, 3 times a day Benzonatate 100 mg Capsule (Tessalon Perles) ??100 mg, By Mouth, 3 times a day Bisacodyl 10 mg Suppository (Dulcolax Supp) ??10 mg 1 supp, Rectally, Daily Bisacodyl 10 mg Suppository (Bisacodyl Supp) ??10 mg 1 supp, Rectally, Once Diazepam 5 mg Tablet (diazepam 5 mg oral tablet) ??2.5 mg, By Mouth, 3 times a day Melatonin 3 mg Tablet (Melatonin Tablet) ??3 mg, By Mouth, Daily at bedtime NaCl 0.9% Flush 3ml (NaCL 0.9% Flush) ??3 mL, IV Push, Every 8 hours Polyvinyl Alcohol 1.4% Opthalmic Solution/Artificial Tears (Artificial Tears 1.4%) ??2 drops, Eyes,Both, Every 4 hours Simethicone 80 mg Chewable Tablet (Simethicone Tablet) ??80 mg, Chew, 3 times a day ? 72 Hour Antibiotic History Stopped Antibiotics Stop Date/Time Last Administered First Administered ceFAZolin??1 Gm, IV Push, Every 8 hours 08/11/2022 12:01 08/11/2022 05:14 08/10/2022 20:48 ? Results Recent Labs BLOOD COUNT & DIFF WBC 13.2 k/mm3 (High)?? 08/13/2022 07:15 RBC 3.30 m/mm3 (Low)?? 08/13/2022 07:15 Hgb 10.5 Gm/dL (Low)?? 08/13/2022 07:15 Hct 32.9 % (Low)?? 08/13/2022 07:15 MCV 99.7 femtoliters ()?? 08/13/2022 07:15 MCH 31.8 pg ()?? 08/13/2022 07:15 MCHC 31.9 g/dL (Low)?? 08/13/2022 07:15 Platelet Count 226 k/mm3 ()?? 08/13/2022 07:15 RDW-SD 50.2 femtoliters (High)?? 08/13/2022 07:15 MPV 11.6 femtoliters ()?? 08/13/2022 07:15 Nucleated RBC (Automated) 0.0 #/100 WBC'S ()?? 08/13/2022 07:15 Abs. NRBC 0.0 k/mm3 ()?? 08/13/2022 07:15 ?? CHEM GENERAL Sodium 139 mmol/L ()?? 08/12/2022 07:08 Potassium 3.9 mmol/L ()?? 08/12/2022 07:08 Chloride 98 mmol/L ()?? 08/12/2022 07:08 Bicarbonate Level 30 mmol/L (High)?? 08/12/2022 07:08 Anion Gap 11 ()?? 08/12/2022 07:08 Glucose Level 93 mg/dL ()?? 08/12/2022 07:08 BUN 12 mg/dL ()?? 08/12/2022 07:08 Creatinine-Blood 0.8 mg/dL ()?? 08/12/2022 07:08 Estimated GFR Creatinine 74 ML/MIN/1.73 M2 ()?? 08/12/2022 07:08 Calcium 10.0 mg/dL ()?? 08/12/2022 07:08 Magnesium 2.4 mg/dL (High)?? 08/12/2022 07:08 ?? COAG INR 1.2 (High)?? 08/13/2022 07:15 Protime (PT) 12.4 seconds (High)?? 08/13/2022 07:15 APTT 62.1 seconds (High)?? 08/13/2022 07:15 ?? MISC. CHEMISTRY Hold Gel Top SPECIMEN DISCARDED AFTER 1 WEEK ()?? 08/13/2022 07:15 ? Assessment/Plan 77-year-old pleasant female patient with history [...] influenza A with COPD exacerbation at [facility] followed by admission at [facility] where she underwent left heart cath that showed concern for Takotsubo cardiomyopathy and severely pulmonary hypertension per cath notes who presents again and found to have possible pneumonia and volume overload/CHF exacerbation. ?? Acute on chronic diastolic CHF exacerbation Severe mitral regurgitation Moderate to severe tricuspid regurgitation Takotsubo cardiomyopathy Severe pulmonary HTN( on 2L continuously at home with 3L on activity per patient) Chronic hypoxic respiratory failure Metabolic alkalosis History of CAD/NSTEMI???nonocclusive cath on 06/21 Hyperlipidemia, history of allergy to iodinated contrast ?? > ??Cardiac cath on 06/21:non-obstructive; 40-50% mid LAD stenosis - similar to previous cath > ??Patient diagnosed with Takotsubo cardiomyopathy but the per cath notes from previous admission and plan is to have patient to f/u with her mill stenciler Dr. Kelly for further management, such as RHC and vasodilator reactivity testing. > ??she was referred to Dr. Kerwin Krishnamurthy for further discussion > ??Patient stated that her sildenafil was stopped by her bottling attendant so at the moment she is not taking any sildenafil. > ??presents with worsening SOB on exertion and found to have moderate pulmonary edema left side> right side. > ??Echo done which showed moderate-severe mitral regurgitation, PAP 65mmHG. > ??08/01 >>??prior provider??discussed with patient bottling attendant Luis Eduardo Barahona ( [place]) about her worsening MR. No sildenafil in view of hypotension and valvular regurgitation. Dr. Cadet requested to have [facility] cardiology evaluation for possible ESME , for better evaluation of her MR. ??[facility] cardiology on board and recommend to increase lasix to 40 mg IVP BID on 08/01/22. 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 The mitral regurgitation varied from mild to markedly severe without change in BP (although following administration of phenylephrine). ??Moderate to severe tricuspid regurgitation ??Preserved by ventricular systolic function ??Severe aortic atherosclerosis . > ??CTS on board and recommendations are appreciated. CTS team has been discussing with patient and family regarding MR intervention. CTS team suggest ABG and hematology consult.? > Patient had tele communication with Dr. Kerwin Menjivar ( [facility] mill stenciler) on 08/02/22,??prior provider??was there in the room and plan of care was discussed . Dr. Menjivar recommends continue diuresis and mitral valve intervention. Dr. Menjivar ( Direct cell phone : [phone]) can be reachedfor further discussion if needed. > ??08/03>> Hematology consulted to assist in management of her ALPS INR goal and to evaluate for prothrombotic risk of prosthetic valve for MVR in future. > 08/10: MV clipping??performed by??Dr. Camarillo, mild??groin??site bleeding??in PACU which resolved??prior to transfer ?Doing well postprocedure,??mild??to moderate pleuritic chest pain,??very small??pericardial effusion on echo Plan: -Holding further Lasix??since 08/08, will consider re-introduction of oral Lasix over the next day or 2??based on volume status??and blood work -Continue statin and metoprolol,??uptitrated as per Cardiology on??2 -She is not on aspirin given platelet dysfunction and easy bleeding while being on Coumadin. -Monitor O2 saturation??->now on room air. -Patient likely??currently requires less than her prior home baseline??of oxygen, she should be seen by Pulm RN prior to discharge??to have her??needs assessed -Maintain on AC,??see below ?? Concern for dysphagia/difficulty passing ESME probe Mild esophageal stricture Mild hiatal hernia > 08/04-08/05: No significant dysphagia symptoms but patient did report globus sensation on occasion, reportedly had difficulty passing ESME probe. Cardioology would like a barium esophagram performed before attempting valve repair because of reported difficulty with ESME, which was ordered. However, she has a significant history of multiple allergies including barium contrast allergy, discussed with Radiology who recommended to involve GI; GI was consulted and they have agreed to perform EGD tofurther evaluate,??which has been done??revealing no significant findings on 08/05??and she was cleared for??ESME next week. > 08/07:??Patient reported with a smear of fresh blood on her stool 08/07??she flushed it away??before could be examined, H&H checked and was stable ?? -No specific intervention required from GI standpoint -If further bleeding??we will reconsult GI and consider??lower??endoscopy as well ?? Pneumonia:??Possible pneumonia on imaging, came in with elevated white count ( ? steroid induced aspatient is also on steroid for COPD exacerbation ) Procalcitonin : 0.09 suggestive of viral origin. Patient prefers to get antibiotics for her pneumonia and has completed 5 days ( 07/29-08/02) ?? -Continue to monitor clinically, hold further empiric antibiotics for now -Monitor VS, fever curve ?? History of antiphospholipid antibody syndrome History of VTE History of platelet dysfunction > ??Patient follows with Tramaine Agosto from [place] , as well as Dr. Hogan from [facility]. > ?Patient's goal 1.5-2. Patient takes around 1-3 mg of Coumadin daily which has been resumed, follows up with [facility] Coumadin clinic. > Hematology consulted to assist in management of her ALPS INR goal and to evaluate for prothrombotic risk of prosthetic valve for MVR in future. > 08/05: Stop warfarin and started on heparin drip (while on warfarin INR goal should be 1.5 to 2and hematology has recommended a heparin drip without bolus and a minimum PTT target of 1.5 times upper limit of normal) - discussed with pharmacy, will do modified drip order with tighter target range and no bolus to meet Hematology criteria > 08/10:??Started back??on??heparin drip and warfarin postprocedure ?? -Maintain on AC - (while on warfarin INR goal should be 1.5 to 2 and hematology has recommended a heparin drip without bolus and a PTT target of 1.5 times upper limit of normal)? Right leg hematoma Noted??postop, she denies any??trauma, confirmed with ultrasound -Wild wrap, warm compress as needed, Lidoderm patches ?? Right foot pain Pain is ongoing throughout hospitalization and??limits her ambulation somewhat, patient has been??treated frequently??with steroids, she denies any??trauma to the foot but is at risk for osteoporoticfracture Xray: Osteopenia with no acute displaced fracture. pain management ?? COPD with exacerbation:??improving - no wheezing noted and will taper down 10 mg every 3 days till her home dose 5mg PO daily; next taper planned on 08/07 ??- albuterol 4 times per day, stating allergic to ipratropium. ??- substitute advair with breo ellipta while in house. ? IIIa lung cancer status post left lower lobe lobectomy and neoadjuvant chemoradiation, radiation pulmonary fibrosis Chronic/stable ?? Hypothyroidism ??-Continue levothyroxine as ordered above ?? Hypertension :??continue metoprolol 25 twice daily ?? Anxiety > Psychiatry was consulted during previous admission and recommended starting mirtazapine which patient reports that she has not started and wants to follow- up outpatient psychiatry before making a decision; discussed again 08/06 and no interest in starting antidepressants at present; patient continues to request increased doses of??Valium, which I would not start??as??she will not have someoneto prescribe them upon discharge > ??Patient seen by psychiatry 08/06, they??do not recommend increasing her Valium and instead??recommended as needed trazodone to be added to her??usual??trazodone, also recommend to??consider mirtazapine which patient is refusing at this time; she was given some??brief CBT??instruction from psyc hiatry ?? -Continue??home??dose??Valium??as needed -Patient encouraged to do CBT interventions as she was??instructed by psychiatry and to follow-up with outpatient provider??once stabilized -Appreciate??Psychiatry input,??patient was given some??techniques??to help with her anxiety -Consider??addition of mirtazapine, continues to refuse, can address as outpatient -Continue home dose trazodone and added on??as needed trazodone twice daily for??anxiety per Psychiatry recs ?? Deconditioning Patient has been in hospital for quite some time now??and is frail to begin with -PT eval requested??and anticipation of discharge in the next couple days ?? OMN: Bridging with heparin and warfarin until INR is 1.5, medication adjustment ?? Discharge Planning:?? PT eval : rehab ? Portable XR Chest Views * BHSPowerscribe , CIS S: TRANSCRIBE Rekha Warren MD: VERIFY Event Display: Result: Authored Date: [id number] Chest Portable performed upright at 5:54 AM Reason: CHF; Clinical Question(s): CHF COMPARISON: Multiple prior chest x-rays, the most recent of which is dated 07/29/2022. FINDINGS: LINES AND TUBES: None. LUNGS AND PLEURA: Small to moderate left pleural effusion, decreased as compared to the prior examination. Partial improved aeration of the left midlung. The right lung is clear with no evidence of right pleural effusion. No pneumothorax. HEART, MEDIASTINUM AND PAULIE: Heart is normal in size. The patient is rotated to the left. No definite change in mediastinal contours. Calcification is seen in the aortic arch. BONES AND SOFT TISSUES: No acute abnormality. IMPRESSION: Decreasing left pleural effusion with improving aeration of the left midlung. WSN: [id number] Ordering Physician: Estiven Adames Dictated By: Rekha Warren MD Dictated Date/Time: 08/03/22 10:59 a Reviewed By: Rekha Warren MD Signed By: Rekha Warren MD Signed Date/Time: 08/03/22 10:59 am Transcribed By: MART Transcribed Date/Time: 08/03/22 10:58 am * DEAN Espinoza S: Andre Flores MD: VERIFY Event Display: Result: Authored Date: [id number] Chest Portable HX OF PRESENT ILLNESS: SOB. pt woke up to use the restroom, became SOB. on 2-3L nc at home. pt states HR was elevated and 02 dropped to 90%; Reason: Shortness of Breath; Clinical Question(s): CHF / CHF COMPARISON: 06/27/2022 FINDINGS: LINES AND TUBES: None. LUNGS AND PLEURA: Diffusely increased reticular interstitial markings with Elmer B-lines at the right lung base. Hazy groundglass opacity throughout the right lung. Moderate left pleural effusion with adjacent atelectasis. Trace right pleural effusion. No pneumothorax. HEART, MEDIASTINUM AND PAULIE: Cardiac silhouette is obscured by the left pleural effusion.. BONES AND SOFT TISSUES: No acute abnormality. IMPRESSION: Findings are likely due to moderate pulmonary edema with left larger than right pleural effusions. Viral or other atypical pneumonia is also possible. WSN: [id number] Ordering Physician: Vamsi Holman Dictated By: Andre Neumann MD Dictated Date/Time: 07/29/22 7:32 am Reviewed By: Andre Neumann MD Signed By: Andre Neumann MD Signed Date/Time: 07/29/22 7:32 am Transcribed By: MART Transcribed Date/Time: 07/29/22 7:30 am XR Foot - right GE 3 Views * DEAN Espinoza S: Rekha Delgado MD: VERIFY Event Display: Result: Authored Date: [id number] Foot Min 3 Views Right, 3 views Reason: Pain; Clinical Question(s): Fracture. COMPARISON: Right foot radiographs dated 02/12/2018 and 12/31/2015. FINDINGS: No acute displaced fracture or dislocation. The bones are osteopenic. There is hallux valgus with mild degenerative change of the first metatarsal phalangeal joint. Joint space narrowing is seen of several of the interphalangeal joints as well as the tarsometatarsal joints. No focal soft tissue swelling. There are extensive vascular calcifications. IMPRESSION: Osteopenia with no acute displaced fracture. WSN: [id number] Ordering Physician: Henry Agarwal Dictated By: Rekha Warren MD Dictated Date/Time: 08/12/22 12:08 p Reviewed By: Rekha Warren MD Signed By: Rekha Warren MD Signed Date/Time: 08/12/22 12:08 pm Transcribed By: MART Transcribed Date/Time: 08/12/22 12:01 pm Patient Care team information Care Team Personnel Name: Val Wynne Position: [facility] Onco RN Member Role: Primary Care Nurse Name: Kaern Pittman RN Position: S RN Member Role: Primary Care Nurse Name: Shilpi Mattson Position: Reference Physician Member Role: Primary Care Nurse Address: Address: [address] [place] [address] [address] [place] [address]- Name: Toyin Doherty RN Position: [facility] RN Member Role: Primary Care Nurse Name: Eben Hernandez NP Position: [facility] Associate Professional Member Role: Lifetime Consulting Provider Address: Address: [address] [place] [address]- Name: Alejandrina Turner RN Position: [facility] RN Member Role: Primary Care Nurse Name: Zoraida Felix RN Position: [facility] RN Member Role: Primary Care Nurse Name: Daphne Hooker RN Position: [facility] RN Member Role: Primary Care Nurse Name: Nasima Gonzalez RN Position: [facility] RN Supv Member Role: Primary Care Nurse Name: Caitlyn Bowie MD Position: [facility] Primary Care Physician Member Role: PCP Address: Address: [address] [place] [address]- Name: Sheeba García Position: S RN Member [...] Role: Lifetime Consulting Provider Address: Address: [address] [place] [address] Name: Daphne Barton RN Position: [facility] [...] Care Nurse Name: Hattie Brewster RN Position: [facility] RN Member Role: Primary Care Nurse Name: Yudith Rothman RN Position: [facility] RN Member Role: Primary Care Nurse Name: Kelly Hernandez RN Position: [facility] RN Member Role: Primary Care Nurse Name: Parris Zuluaga RN Position: [facility] RN Member Role: Primary Care Nurse Name: Jada GONZALEZ Attending Position: [facility] ED Medicine MD Name: Dominique Cohen Position: [facility] ED OA Charge Member Role: ED Associate Name: Kacie Poole Position: [facility] ED RN W/OE and Tasks Member Role: Patient Care Provider Care Team Related Persons Name: ZENAIDA FLORES Address: [place], [place] Name: TIA RIVERS Address: home [address] [place] [address] Name: JOHANN RETANA Address: [place], [place]
--- OUTSIDE RECORDS SUMMARY | 2023-10-14 17:04 | XMS_ITS | Continuity of Care Document ---
Author Organization [facility] Address [address] [address]- Care Team Providers Care Pre K Special Education Teacher Name Role Phone Caitlyn Bowie MD Primary Care Physician [facility] - 07/[facility]/21 [facility] [address] [place] [address] [...] vaccine, inactivated 04/16/17 Give n SARS-CoV-2 (COVID-19) mRNA-1271 vaccine 08/06/20 R ecorded [...]
--- OUTSIDE RECORDS SUMMARY | 2023-10-14 17:04 | XMS_ITS | Continuity of Care Document ---
Author Organization [facility] Address [address] [place] [address]- Care Team Providers Care Oil Derrick Operator Name Role Phone Caitlyn Bowie MD Primary Care Physician [phone] [facility]s): 07/27/21 - 08/26/21 [facility] [address] [place], [place] [address] Allergies, Adverse Reactions, Alerts [...]
--- OUTSIDE RECORDS SUMMARY | 2023-10-14 17:04 | XMS_ITS | Continuity of Care Document ---
Author Organization [facility] ter Address [address] [place] [address]- Care Team Providers Care It Investment/Portfolio Manager Name Role Phone Brennan Burnett MD Primary Care Physician [phone] [facility]s): 09/17/20 - 10/17/[address] [address] Attending Physician: Not on Staff, Attending MD [...] By Mouth, Daily, Dr. primo Renee at [place], # 30 tablet, 0 Refills, Maintenance, 01/26/18 [...]
--- OUTSIDE RECORDS SUMMARY | 2023-10-14 17:05 | XMS_ITS | Continuity of Care Document ---
Author Organization [facility] Address [address] [place] [address]- Care Team Providers Care Afloat Cryptologic Manager Name Role Phone Caitlyn Bowie MD Primary Care Physician [phone] [place] [facility] Date(s): 08/03/23 - 08/10/23 [facility] [address] [place] [address]- Attending Physician: Tawana CH[facility], Caitlyn Whaley Admitting Physician: Tawana CHI, Caitlyn Whaley Referring Physician: Caitlyn Bowie MD Allergies, Adverse Reactions, Alerts Substance Reaction Severity Status ciprofloxacin Active vancomycin Active busPIRone Feeling of throat ti ghtness Headache Dizziness Active barium sulfate Active iodinated radiocontrast dyes Active gentamicin Active clindamycin throat tightening Active erythromycin Active penicillin 1 Active ipratropium Active morphine Active sulfa drugs Active Biaxin Active Voltaren [...] oldest [Reference Range]: 1 Height 159 cm (08/03/23 3:05 PM) Weight 58.0 kg (08/03/23 3:05 PM) Oxygen Saturation [94-100 %] 97 % (08/03/23 3:05 PM) Pulse Rate [55-90 bpm] 88 bpm (08/03/23 3:05 PM) Body Mass Index [18.5-24.99 kg/m2] 22.94 kg/m2 (08/03/23 3:05 PM) Blood Pressure [90-138/55-84 mm Hg] 110/ 70mm Hg (08/03/23 3:05 PM) Mode of Delivery (Oxygen) Room air (08/03/23 3:05 PM) Blood pressure sites Arm, right (08/03/23 3:05 PM) Weight Obtained Via Patient/family state d (08/03/23 3:05 PM) Social History Social History Type Response Smoking Status Never smoker; Tobacc o user in household: No entered on: 04/05/17 Sex Note * Afsaneh Rodriguez: PERFORM, SIGN, VERIFY Event Display: Patient Education/Instruction Authored Date: [id number] [facility] *[facility] [address] Clinical Summary Name CINDA WATSON Age 78 Years 1945 PCP Caitlyn Bowie MD PCP Visit Date 08/03/2023 14:50:00 Additional Instructions: Scheduled Appointments?? Future Appointments ?*[facility]ult ?[address]??[place],??[place],??[address] ?Phone:??--?Fax:??-- ?Appt. Date:??08/11/2023?10:00 AM ?Scheduled Provider:??Donya HAJI, Fei ?*[facility] ?[address]??[place],??[place],??[address] ?Phone:??--?Fax:??-- ?Appt. Date:??08/14/2023?11:00 AM ?Scheduled Provider:??Caitlyn Bowie MD ?[facility] ?[address],??[place],??[address] ?Phone:??[phone]?Fax:??-- ?Appt. Date:??08/18/2023?1:45 PM ?Scheduled Provider:??[facility] 3D Mammo Rm 2 ?*[facility] ?[address]??[place],??[place],??[address] ?Phone:??--?Fax:??-- ?Appt. Date:??09/28/2023?11:00 AM ?Scheduled Provider:??Azeb STARK , Caitlyn Thompson Follow-Up Instructions ?? With: Address: When: Tawana CHI, Caitlyn Whaley Comments: PRN Diagnosis Medications: Please continue your medications until [...] orders Vital Signs Height 159 cm Weight 58.0 kg BMI 22.94 kg/m2 Blood Pressure 110 mm Hg/70 mm Hg Temperature Pulse Rate 88 bpm Respiratory Rate 02 Sat Mode of Delivery 97 %/Room air You can now view a summary of your hospital visit from the comfort of your home through a free online portal called [employer]. [employer] is a website that allows you to securely view your medical information including discharge summary, medications and follow-up visits. ??You can alsosend a secure electronic message to your doctor???s office to request appointments, renew medications or just ask a question. You can enroll at [email or web address] or register during your next office visit. [...] provider, you may find a [facility] provider by calling [facility] [employer] Link at [phone]. [facility], in keeping with [facility] guidance, no longer requires face [...] Care Team Personnel Name: Lauren Wynnericia Position: [facility] Onco RN Member Role: Primary Care Nurse Name: Karen Pittman RN Position: S RN Member Role: Primary Care Nurse Name: Shilpi Mattson Position: Reference Physician Member Role: Primary Care Nurse Address: Address: [address] [place] [address]- [place] Name: Toyin Doherty RN Position: [facility] RN Member Role: Primary Care Nurse Name: Eben Hernandez NP Position: [facility] Associate Professional Member Role: Lifetime Consulting Provider Address: Address: [address] [place] [address]- [place] Name: Alejandrina Turner RN Position: [facility] RN Member Role: Primary Care Nurse Name: Zoraida Felix RN Position: [facility] ED RN W/OE and Tasks Member Role: Primary Care Nurse Name: Jaye Harley Position: [facility] [place] Senior Information Security Analyst Member Role: Sewing Machine Tester Name: Daphne Hooker RN Position: [facility] RN Member Role: Primary Care Nurse Name: Nasima Gonzalez RN Position: [facility] RN Supv Member Role: Primary Care Nurse Name: Caitlyn Bowie MD Position: [facility] Physician - Primary Care Member Role: PCP Address: Address: [address] [place] [address]- [place] Name: Kiki Abdi RN Position: [facility] RN Member Role: Primary Care Nurse Name: Marry Reza Position: S RN Member Role: Primary Care Nurse Name: Veronica Hurst [place] Position: [facility] SALLY [place] Member Role: Lifetime Consulting Physician Name: Maddie Herrera RN Position: [facility] SALLY Nurse Member Role: Primary Care Nurse Name: Yudith Herrera RN Position: [facility] Onco RN Member Role: Primary Care Nurse Name: Raegan Baptiste RN Position: [facility] RN Member Role: Primary Care Nurse Name: She Pool Position: [facility] RN Member Role: Primary Care Nurse Name: Kaila Latham RN Position: S RN Member Role: Primary Care Nurse Name: Jluio C Bahena Position: [facility] RN Member Role: Primary Care Nurse Name: Nasima Heredia RN Position: [facility] RN Member Role: Primary Care Nurse Name: Katherine Nixon PharmD Position: [facility] Associate Professional Member Role: Lifetime Consulting Provider Address: Address: [address] [place] [address] Name: Daphne Barton RN Position: [facility] RN Member Role: Primary Care Nurse Name: Katherine Long RN Position: [facility] RN Member Role: Primary Care Nurse Name: Norma Serrano RN Position: [facility] RN Member Role: Primary Care Nurse Name: Fani Perez RN Position: [facility] RN Member Role: Primary Care Nurse Name: Hattie Brewster RN Position: [facility] RN Member Role: Primary Care Nurse Name: Kelly Hernandez RN Position: [facility] RN Member Role: Primary Care Nurse Name: Pallavi Wylie LPN Position: [facility] RN Member Role: Primary Care Nurse Name: Parris Zuluaga RN Position: [facility] RN Member Role: Primary Care Nurse Care Team Related Persons Name: ZENAIDA FLORES Address: [place], [place] Name: TIA RIVERS Address: [place] [address] Name: JOHANN RETANA Address: [place], [place]
--- OUTSIDE RECORDS SUMMARY | 2023-10-14 17:05 | XMS_ITS | Continuity of Care Document ---
Author Organization [facility] Address [address] [place] [address]- Care Team Providers Care Substation Operator Conversion Name Role Phone Caitlyn Bowie MD Primary Care Physician [facility] 12[facility]12[facility]22 - 01/11/23 [facility] [address] [place], [place] [address] Allergies, Adverse Reactions, Alerts [...] Care Nurse Address: Address: [address] [place] [address]- [place] Name: Toyin Doherty RN Position: [facility] RN Member Role: Primary Care Nurse Name: Eben Hernandez NP Position: [facility] Associate Professional Member Role: Lifetime Consulting Provider Address: Address: [address] [place] [address]- [place] Name: Alejandrina Turner RN Position: [facility] [...] Primary Care Member Role: PCP Address: Address: [address] [place] [address]- [place] Name: Kiki Abdi RN Position: [facility] [...] Care Nurse Name: Katherine Nixon PharmD Position: [facility] Associate Professional Member Role: Lifetime Consulting Provider Address: Address: [address] [facility] [place] [address]- [place] Name: Daphne Barton RN Position: [facility] [...] Team Related Persons Name: ZENAIDA FLORES Address: [place], [place] Name: TIA RIVERS Address: [place] [address] Name: JOHANN RETANA Address: [place], [place]
--- OUTSIDE RECORDS SUMMARY | 2023-10-14 17:05 | XMS_ITS | Continuity of Care Document ---
Author Organization [facility] Address [address] [address]- Care Team Providers Care Machine Hoop Maker Helper Name Role Phone Brennan uBrnett MD Primary Care Physician [facility]s): 11/12/20 - 12/12/20 [facility] [address] [place] [address] Allergies, Adverse Reactions, Alerts [...] times a day, Dr. primo Renee at [place], per pt, # 30 tablet, 0 Refills, [...]
--- OUTSIDE RECORDS SUMMARY | 2023-10-14 17:05 | XMS_ITS | Continuity of Care Document ---
Author Organization [facility] ter Address [address] [place] [address]- Care Team Providers Care Nurse Clinical Name Role Phone Caitlyn Bowie MD Primary Care Physician Encounter [facility] Date(s): 07/06/21 - 07/06/[address] [address]- Encounter Diagnosis Subarachnoid bleed(Final) - 07/06/21 Discharge Disposition: A-D/C Home Attending Physician: Leonor العلي MD Admitting Physician: Leonor العلي MD Referring Physician: Not on Staff, Referring MD Allergies, Adverse Reactions, Alerts Substance Reaction Severity Status ciprofloxacin Active vancomycin Active busPIRone Feeling of throat ti ghtness Headache Dizziness Active barium sulfate Active Zithromax Active Flagyl Active gentamicin Active erythromycin Active penicillin 1 Active ipratropium Active morphine Active sulfa drugs Active iodinated radiocontrast dyes Active Voltaren Active Novocain Active Gastrografin Active Levaquin Avocado [...] Start Date: 07/03/21 Status: Ordered nystatin topical [id number] u/gm powder 1 application, Topically, 3 times [...] 3 Oxygen Saturation [94-100 %] 98 % (07/06/21 9:30 PM) 99 % (07/06/21 8:00 PM) 99 % (07/06/21 5:15 PM) Pulse Rate [55-90 bpm] 85 bpm (07/06/21 9:30 PM) 86 bpm (07/06/21 8:00 PM) 84 bpm (07/06/21 5:15 PM) Blood Pressure [90-138/55-84 mm Hg] 125/72mm Hg (07/06/21 9:30 PM) 155/71mm Hg *H* (07/06/21 8:00 PM) 114/60mm Hg (07/06/21 5:15 PM) Respiratory Rate [16-30 br/min] 19 br/min (07/06/21 9:30 PM) 18 br/min (07/06/21 8:00 PM) 16 br/min (07/06/21 5:15 PM) Temperature [96.8-100.4 DegF] 98.7 DegF (07/06/21 8:00 PM) 98.9 DegF (07/06/21 5:15 PM) Mode of Delivery (Oxygen) Room air (07/06/21 9:30 PM) Room air (07/06/21 8:00 PM) Room air (07/06/21 5:15 PM) Blood pressure sites Arm, right (07/06/21 9:30 PM) Arm, left (07/06/21 5:15 PM) Temperature Route Oral (07/06/21 8:00 PM) Oral (07/06/21 5:15 PM) Social History Social History Type Response Smoking Status Never smoker; Tobacc o user in household: No entered on: 04/05/17 Sex
--- OUTSIDE RECORDS SUMMARY | 2023-10-14 17:05 | XMS_ITS | Continuity of Care Document ---
Author Organization [facility] Address [address] [place] [address]- Care Team Providers Care Academy Director Name Role Phone Azeb STARK, Caitlyn Thompson Primary Care Physician [phone] [facility](s): 01/11/22 - 01/18/22 [facility] [address] [place] [address]- Attending Physician: Ally Correa MD Allergies, Adverse Reactions, Alerts Substance Reaction Severity Status ciprofloxacin Active gentamicin Active erythromycin Active penicillin 1 Active vancomycin Active ipratropium Active morphine Active barium sulfate Active sulfa drugs Active iodinated radiocontrast dyes Active Voltaren Active Flagyl Active Novocain Active Biaxin Active Gastrografin Active Levaquin Avocado Active Zithromax Active Avelox Active Bee Stings Active Contrast [...] day, 0 Refills, Maintenance, 11/06/21 12:44:00 EDT, [place], Partialfill upon patient request if the prescription [...] Refills, Maintenance, 11/09/21 9:33:00 EDT, EC Capsule, [facility], Partial fill upon patient [...] Range]: 1 2 3 Height 160 cm (01/11/22 3:12 PM) 160 cm (01/11/22 3:12 PM) 160 cm (01/11/22 1:55 PM) Weight 59.4 kg (01/11/22 1:55 PM) Oxygen Saturation [94-100 %] 95 % (01/11/22 3:12 PM) 96 % (01/11/22 3:12 PM) 95 % (01/11/22 1:55 PM) Pulse Rate [55-90 bpm] 82 bpm (01/11/22 1:55 PM) Body Mass Index [18.5-24.99] 23.2 (01/11/22 1:55 PM) Blood Pressure [90-138/55-84 mm Hg] 112/58mm Hg (01/11/22 1:55 PM) Mode of Delivery (Oxygen) Nasal cannula (01/11/22 3:12 PM) Room air (01/11/22 3:12 PM) Blood pressure sites Arm, left (01/11/22 1:55 PM) Weight Obtained Via Standing scale (01/11/22 1:55 PM) Social History Social History Type Response Smoking Status Never smoker; Tobacc o user in household: No entered on: 04/05/17 Sex
--- OUTSIDE RECORDS SUMMARY | 2023-10-14 17:05 | XMS_ITS | Continuity of Care Document ---
Author Organization [facility] Address [address] [place] [address]- Care Team Providers Care Imaging Manager Name Role Phone Caitlyn Bowie MD Primary Care Physician [phone] [facility]s): 07/28/21 - 08/27/21 [facility] [address] [place], [place] [address] Allergies, Adverse Reactions, Alerts Substance Reaction [...]
--- OUTSIDE RECORDS SUMMARY | 2023-10-14 17:05 | XMS_ITS | Continuity of Care Document ---
Author Organization [facility] Address [address] [place] [address]- Care Team Providers Care Ship'S Electronic Warfare Officer Name Role Phone Caitlyn Bowie MD Primary Care Physician [phone] [facility]counter [facility] Date(s): 09/06/21 - 10/06/21 [facility] [address] [place], [place] [address] Allergies, Adverse Reactions, Alerts Substance Reaction Severity Status ciprofloxacin Active morphine Active barium sulfate Active iodinated radiocontrast dyes Active Zithromax Active gentamicin Active erythromycin Active penicillin 1 Active vancomycin Active busPIRone Feeling of throat ti ghtness Headache Dizziness Active ipratropium Active sulfa drugs Active Voltaren Active Gastrografin [...]
--- OUTSIDE RECORDS SUMMARY | 2023-10-14 17:05 | XMS_ITS | Continuity of Care Document ---
Author Organization [facility] Address [address] [place] [address]- Care Team Providers Care Rf Design Engineer Name Role Phone Peewee STARK, Sharon Primary Care Physician ( [phone] [place] [facility] [place] 01/09/20 - 02/08/20 [facility] [address] [place] [address] [facility] Allergies, Adverse Reactions, Alerts Substance Reaction Severity [...] By Mouth, Daily, Dr. primo Renee at [place], # 30 tablet, 0 Refills, Maintenance, 01/26/18 16:36:23 EDT, ER Tablet Start Date: 01/26/18 Status: Ordered metroNIDAZOLE 500 mg oral tablet 1 tablet = 500 mg, By Mouth, Every 8 hours, may take with food to minimize abdominal discomfort, # 18 tablet, 0 Refills, Maintenance, 09/06/19 14:42:00 EST, Tablet, [facility], 160, cm,09/06/19 7:35:00 EST, [...]
--- OUTSIDE RECORDS SUMMARY | 2023-10-14 17:05 | XMS_ITS | Continuity of Care Document ---
Author Organization [facility] ter Address [address] [place] [address]- Care Team Providers Care Medical Care Administrator Name Role Phone Caitlyn Bowie MD Primary Care Physician [place] [facility] [place]s): 04/07/22 - 05/14/[address] [address] Attending Physician: Henry Kelly MD Admitting Physician: Henry Kelly MD Referring Physician: Henry Kelly MD Allergies, Adverse Reactions, Alerts Substance Reaction Severity Status ciprofloxacin Active busPIRone Feeling of throat ti ghtness Headache Dizziness Active ipratropium Active barium sulfate Active iodinated [...] days of antibiotics, as prescribed by your spot checker, 0 Refills, Maintenance, 04/14/22 10:18:00 EDT, Tablet, [...] congetsiton, 0 Refills, Maintenance, 11/06/21 12:44:00 EDT, [place], Partial fill upon patient request if the [...] EDT, 03/08/22 13:24:00 EDT, [facility], do not fill unless pt [...] Refills, Maintenance, 11/09/21 9:33:00 EDT, EC Capsule, [facility], Partial fill upon patient request [...] Personnel Name: Caitlyn Bowie MD Address: Address: [address] [place] [address]
--- OUTSIDE RECORDS SUMMARY | 2023-10-14 17:05 | XMS_ITS | Continuity of Care Document ---
Author Organization [facility] Address [address] [place] [address]- Care Team Providers Care Economic Forecaster Name Role Phone Brennan Burnett MD Primary Care Physician [place] [facility] - 09/01/20 [facility] [address] [place] [address]- Attending Physician: Cristofer Spivey MD Admitting Physician: [...] Active Bee Stings Active Contrast Dye Active gentamicin Active vancomycin Active Mold Active Shrimp Active Avocado Active [...] By Mouth, Daily, Dr. primo Renee at [place], # 30 tablet, 0 Refills, Maintenance, 01/26/18 [...]
--- OUTSIDE RECORDS SUMMARY | 2023-10-14 17:05 | XMS_ITS | Continuity of Care Document ---
Author Organization [facility] Address [address] [place] [address]- Care Team Providers Care Registered Radiologic Technologist Name Role Phone Brennan Burnett MD Primary Care Physician [phone] Encounter [facility] Date(s): 09/18/20 - 02/02/21 [facility] [address] [place] [address] Discharge Disposition: A-D/C Home Attending Physician: Samira STARK(Hem/Onc), Christo Giles Admitting Physician: Samira STARK(Hem/Onc), Christo Giles Referring Physician: Brennan Burnett MD Allergies, Adverse [...] times a day, Dr. primo Renee at [place], per pt, # 30 tablet, 0 Refills, [...] oldest [Reference Range]: 1 Height 160 cm (12/03/20 2:29 PM) Weight 59.4 kg (12/03/20 2:29 PM) Pulse Rate [55-90 bpm] 77 bpm (12/03/20 2:29 PM) Body Mass Index [18.5-24.99] 23.2 (12/03/20 2:29 PM) Blood Pressure [90-138/55-84 mm Hg] 106/ 54mm Hg (12/03/20 2:29 PM) Temperature [96.8-100.4 DegF] 97.9 DegF (12/03/20 2:29 PM) Blood pressure sites Arm, left (12/03/20 2:29 PM) Temperature Route Temporal (12/03/20 2:29 PM) Dry Weight 59.4 kg (12/03/20 2:29 PM) Weight Obtained Via Standing scale (12/03/20 2:29 PM) Dry Weight Obtained Via Standing scale (12/03/20 2:29 PM) Social History Social History Type Response Smoking Status Never smoker; Tobacc o user in household: No entered on: 04/05/17 Sex
--- OUTSIDE RECORDS SUMMARY | 2023-10-14 17:05 | XMS_ITS | Continuity of Care Document ---
Author Organization [facility] Address [address] [place] [address]- Care Team Providers Care Motor Electrician Name Role Phone Caitlyn Bowie MD Primary Care Physician [facility]counter [facility] Date(s): 05/06/22 - 06/05/22 [facility] [address] [place] [address]- Attending Physician: Melissa Morrison Admitting Physician: AdmtrMelissa [...] Physician Stop, 09/30/21 13:21:00 EDT, [facility], 160, cm, 09/24/21 16:15:00 EDT, [...] No entered on: 04/05/17 Sex Note * Event Display: Non BH Lab Results [...] Display: Cardiology Office Note, Non- Authored Date: Patient Care team information Care Team Personnel Name: Sherrell Val Position: [facility] Onco RN Member Role: Primary Care Nurse Name: Karen Pittman RN Position: [facility] RN Member Role: Primary Care Nurse Name: Shilpi Mattson Position: Reference Physician Member Role: Primary Care Nurse Address: Address: [address] [place] [address] [address] [place] [address]- [place] Name: Toyin Doherty RN Position: [facility] RN Member Role: Primary Care Nurse Name: Eben Hernandez NP Position: [facility] Associate Professional Member Role: Lifetime Consulting Provider Address: Address: [address] [place] [address]- Name: Alejandrina Turner RN Position: [facility] Physician Member Role: PCP Address: Address: [address] [place] [address]- Name: Sheeba García Position: [facility] RN Member Role: Primary Care Nurse Name: Kiki Abdi RN Position: [facility] Latham RN Position: [facility] MADELINE RN W/OE and Tasks Member Role: Primary Care Nurse Name: Julio C Bahena Position: [facility] RN Member Role: Primary Care Nurse Name: Nasima Heredia RN Position: [facility] RN Member Role: Primary Care Nurse Name: Katherine Nixon PharmD Position: [facility] Associate Professional Member Role: Lifetime Consulting Provider Address: Address: [address] [place] [id number] Name: Daphne Barton RN Position: [facility] RN Member Role: Primary Care Nurse Name: Katherine Long RN Position: [facility] RN Member Role: Primary Care Nurse Name: Norma Serrano RN Position: [facility] RN Member Role: Primary Care Nurse Name: Aurea Kelly RN Position: [facility] RN Member Role: Primary Care Nurse Name: Seven Kelly RN Position: [facility] RN Member Role: Primary Care Nurse Name: Fani Perez RN Position: [facility] RN Member Role: Primary Care Nurse Name: Emely Her Position: [facility] RN Member Role: Primary Care Nurse Name: Yudith Rothman RN Position: [facility] RN Member Role: Primary Care Nurse Name: Parris Zuluaga RN Position: [facility] RN Member Role: Primary Care Nurse Care Team Related Persons Name: ZENAIDA FLORES Address: home [address] [place] [address] Name: TIA RIVERS Address: [address] [place] [address] Name: JOHANN RETANA Address: [place], [place]
--- OUTSIDE RECORDS SUMMARY | 2023-10-14 17:06 | XMS_ITS | Continuity of Care Document ---
Author Organization [facility] Address [address] [place] [address]- Care Team Providers Care Building Inspection Engineer Name Role Phone Caitlyn Bowie MD Primary Care Physician [facility]counter [facility] Date(s): 03/01/21 - 03/31/21 [facility] [address] [address] Allergies, Adverse Reactions, Alerts Substance [...] times a day, Dr. primo Renee at [place], per pt, # 30 tablet, 0 Refills, [...]
--- OUTSIDE RECORDS SUMMARY | 2023-10-14 17:06 | XMS_ITS | Continuity of Care Document ---
Author Organization [facility] Address [address] [place] [address]- Care Team Providers Care Digital Media Designer Name Role Phone Caitlyn Bowie MD Primary Care Physician Encounter [facility] Date(s): 02/05/22 - 06/05/22 [facility] [address] [place] [address]- Attending Physician: Rabia STARK, Ashequl Admitting Physician: Rabia STARK, Ashequl Referring Physician: Caitlyn Bowie MD Allergies, Adverse [...] Care Team Personnel Name: Val Wynne Position: [facility] Onco RN Member Role: Primary Care Nurse Name: Karen Pittman RN Position: [facility] RN Member Role: Primary Care Nurse Name: Shilpi Mattson Position: Reference Physician Member Role: Primary Care Nurse Address: Address: [address] [place] [address] [address] [place] [address]- Name: Toyin Doherty RN Position: S RN Member Role: Primary Care Nurse Name: Eben Hernandez NP Position: S Associate Professional Member Role: Lifetime Consulting Provider Address: Address: [address] [place] [address]- Name: Alejandrina Turner RN Position: [facility] RN Member Role: Primary Care Nurse Name: Zoraida Felix RN Position: [facility] RN Member Role: Primary Care Nurse Name: Daphne Hooker RN Position: [facility] RN Member Role: Primary Care Nurse Name: Nasima Gonzalez RN Position: [facility] RN Supv Member Role: Primary Care Nurse Name: Caitlyn Bowie MD Position: [facility] Primary Care Physician Member Role: PCP Address: Address: [address] [place] [address]- Name: Sheeba García Position: [facility] RN Member Role: Primary Care Nurse Name: Kiki Abdi RN Position: [facility] RN Member Role: Primary Care Nurse Name: Marry Reza Position: [facility] RN Member Role: Primary Care Nurse Name: Veronica Hurst [place] Position: [facility] PCO RN Member Role: Lifetime Consulting Physician Name: Maddie Herrera RN Position: [facility] RN Member Role: Primary Care Nurse Name: Raegan Baptiste RN Position: [facility] RN Member Role: Primary Care Nurse Name: Svitlana Marcum RN Position: [facility] AMB Nurse Member Role: Primary Care Nurse Name: She Pool Position: [facility] RN Member Role: Primary Care Nurse Name: Kaila Latham RN Position: [facility] MADELINE RN W/OE and Tasks Member Role: Primary Care Nurse Name: Julio C Bahena Position: [facility] RN Member Role: Primary Care Nurse Name: Nasima Heredia RN Position: [facility] RN Member Role: Primary Care Nurse Name: Katherine Nixon PharmD Position: [facility] Associate Professional Member Role: Lifetime Consulting Provider Address: Address: [address] [place] [address]- Name: Daphne Barton RN Position: [facility] RN Member Role: Primary Care Nurse Name: Katherine Long RN Position: [facility] RN Member Role: Primary Care Nurse Name: Norma Serrano RN Position: [facility] RN Member Role: Primary Care Nurse Name: Aurea Kelly RN Position: [facility] RN Member Role: Primary Care Nurse Name: Seven Kelly RN Position: [facility] RN Member Role: Primary Care Nurse Name: Fani Perez RN Position: [facility] RN Member Role: Primary Care Nurse Name: Emely Her Position: S RN Member Role: Primary Care Nurse Name: Yudith Rothman RN Position: S RN Member Role: Primary Care Nurse Name: Parris Zuluaga RN Position: S RN Member Role: Primary Care Nurse Care Team Related Persons Name: ZENAIDA FLORES Address: [address] [address] Name: TIA RIVERS Address: home [address] [place] [address] Name: JOHANN RETANA Address: [place] [address]
--- OUTSIDE RECORDS SUMMARY | 2023-10-14 17:06 | XMS_ITS | Continuity of Care Document ---
Author Organization [facility] Address [address] [place] [address]- Care Team Providers Care Bread Supervisor Name Role Phone Azeb STARK, Caitlyn Thompson Primary Care Physician [facility]counter [facility] Date(s): 02/04/22 - 03/06/22 [facility] [address] [place] [address]- Allergies, Adverse Reactions, Alerts Substance Reaction Severity [...] day, 0 Refills, Maintenance, 11/06/21 12:44:00 EDT, [facility], Partialfill upon patient request if the prescription [...] EDT, 02/10/22 8:53:00 EDT, Ointment, [facility], Partial fill upon patient request if the prescription is for a schedule II opi... Start Date: 02/10/22 Stop Date: 03/12/22 Status: Ordered omeprazole 40 mg oral enteric coated capsule 1 capsule = 40 mg, By Mouth, Daily, # 5 capsule, 0 Refills, Maintenance, 11/09/21 9:33:00 EDT, EC Capsule, [facility], Partial fill upon patient request [...] Team Personnel Name: Caitlyn Bowie MD Address: [address] [place] [address]
--- OUTSIDE RECORDS SUMMARY | 2023-10-14 17:06 | XMS_ITS | Continuity of Care Document ---
Author Organization [facility] Address [address] [place] [address]- Care Team Providers Care Instructional Facilitator Name Role Phone Caitlyn Bowie MD Primary Care Physician [place] [facility] 11[place]24/21 - 12/01/21 [facility] [address] [place] [address]- Encounter Diagnosis Diverticulitis(Discharge Diagnosis) - 11/24/21 Tremor of both hands(Discharge Diagnosis) - 11/24/21 Attending Physician: Caitlyn Bowie MD Allergies, Adverse [...] day, 0 Refills, Maintenance, 11/06/21 12:44:00 EDT, [place], Partialfill upon patient request if the prescription [...] Refills, Maintenance, 11/09/21 9:33:00 EDT, EC Capsule, [facility], Partial fill upon patient [...] Effective Dates Health Status Clinical Service Informant Diverticulitis Discharge Diagnosis 11/24/21 Tremor of both hands Discharge Diagnosis 11/24/21 Vital Signs Most recent to oldest [Reference Range]: 1 Height 160 cm (11/24/21 2:10 PM) Weight 58.0 kg (11/24/21 2:10 PM) Oxygen Saturation [94-100 %] 95 % (11/24/21 2:10 PM) Pulse Rate [55-90 bpm] 80 bpm (11/24/21 2:10 PM) Body Mass Index [18.5-24.99] 22.66 (11/24/21 2:10 PM) Blood Pressure [90-138/55-84 mm Hg] 98/5 8mm Hg (11/24/21 2:10 PM) Mode of Delivery (Oxygen) Room air (11/24/21 2:10 PM) Blood pressure sites Arm, left (11/24/21 2:10 PM) Social History Social History Type Response Smoking Status Never smoker; Tobacc o user in household: No entered on: 04/05/17 Sex
--- OUTSIDE RECORDS SUMMARY | 2023-10-14 17:06 | XMS_ITS | Continuity of Care Document ---
Author Organization [facility] Address [address] [place] [address]- Care Team Providers Care Vegetable Preparer Name Role Phone Caitlyn Bowie MD Primary Care Physician [phone] Encounter [facility] Date(s): 01/14/21 - 02/13/21 [facility] [address] [place] [address]- Allergies, Adverse Reactions, Alerts Substance Reaction Severity [...] times a day, Dr. primo Renee at [place], per pt, # 30 tablet, 0 Refills, [...]
--- OUTSIDE RECORDS SUMMARY | 2023-10-14 17:06 | XMS_ITS | Continuity of Care Document ---
Author Organization [facility] Address [address] [address]- Care Team Providers Care Hypercil Core Transformer Assembler Name Role Phone Brennan Burnett MD Primary Care Physician [place] [facility] [place]/17/20 - 09/16/20 [facility] [address] [place] [id number] Allergies, Adverse Reactions, Alerts [...] By Mouth, Daily, Dr. primo Renee at [place], # 30 tablet, 0 Refills, Maintenance, 01/26/18 [...]
--- OUTSIDE RECORDS SUMMARY | 2023-10-14 17:06 | XMS_ITS | Continuity of Care Document ---
Author Organization [facility] Address [address] [facility] [place] [address]- Care Team Providers Care Gold Layer Name Role Phone Peewee STARK, Sharon Primary Care Physician Encounter 03/20/20 - 04/22/20 [facility] [address], [facility] [address] [place] [address]- [phone] Attending Physician: Akosua Baer Admitting Physician: Akosua Baer Referring Physician: Akosua Baer Allergies, Adverse Reactions, Alerts Substance Reaction Severity [...] By Mouth, Daily, Dr. primo Renee at [place], # 30 tablet, 0 Refills, Maintenance, 01/26/18 16:36:23 EDT, ER Tablet Start Date: 01/26/18 Status: Ordered metroNIDAZOLE 500 mg oral tablet 1 tablet = 500 mg, By Mouth, Every 8 hours, may take with food to minimize abdominal discomfort, # 18 tablet, 0 Refills, Maintenance, 09/06/19 14:42:00 EST, Tablet, [facility], 160, cm,09/06/19 7:35:00 EST, Height, [...]
--- OUTSIDE RECORDS SUMMARY | 2023-10-14 17:06 | XMS_ITS | Continuity of Care Document ---
Author Organization [facility] Address [address] [place] [address]- Care Team Providers Care Manager Economic Name Role Phone Caitlyn Bowie MD Primary Care Physician [facility]counter [facility] Date(s): 02/22/21 - 03/24/21 [facility] [address] [place] [address] Allergies, Adverse [...] times a day, Dr. primo Renee at [place], per pt, # 30 tablet, 0 Refills, [...]
--- OUTSIDE RECORDS SUMMARY | 2023-10-14 17:06 | XMS_ITS | Continuity of Care Document ---
Author Organization [facility] Address [address] [place] [address]- Care Team Providers Care Bindery Machine Operator Name Role Phone Caitlyn Bowie MD Primary Care Physician Encounter [facility] Date(s): 04/02/21 - 04/09/21 [facility] [address] [place] [address]- Encounter Diagnosis LLQ pain(Discharge Diagnosis) - 04/02/21 Bilateral lower extremity pain(Discharge Diagnosis) - 04/02/21 Attending Physician: Caitlyn Bowie MD Allergies, Adverse [...] times a day, Dr. primo Renee at [place], per pt, # 30 tablet, 0 Refills, [...] Dates Health Status Cl inical Service Informant LLQ pain Discharge Diagnosis 04/02/21 Bilateral lower extremity pain Discharge Diagnosis 04/02/21 Vital Signs Most recent to oldest [Reference Range]: 1 Height 134.6 cm (04/02/21 9:23 AM) Weight 58.7 kg (04/02/21 9:23 AM) Oxygen Saturation [94-100 %] 97 % (04/02/21 9:23 AM) Pulse Rate [55-90 bpm] 78 bpm (04/02/21 9:23 AM) Body Mass Index [18.5-24.99] 32.4 *>HHI* (04/02/21 9:23 AM) Blood Pressure [90-138/55-84 mm Hg] 106/ 50mm Hg (04/02/21 9:23 AM) Respiratory Rate [16-30 br/min] 20 br/mi n (04/02/21 9:23 AM) Temperature [96.8-100.4 DegF] 98.4 DegF (04/02/21 9:23 AM) Mode of Delivery (Oxygen) Room air (04/02/21 9:23 AM) Blood pressure sites Arm, right (04/02/21 9:23 AM) Temperature Route Temporal (04/02/21 9:23 AM) Weight Obtained Via Standing scale (04/02/21 9:23 AM) Social History Social History Type Response Smoking Status Never smoker; Tobacc o user in household: No entered on: 04/05/17 Sex
--- OUTSIDE RECORDS SUMMARY | 2023-10-14 17:06 | XMS_ITS | Continuity of Care Document ---
Author Organization [facility] Address [address] [place] [address]- Care Team Providers Care Sanding Machine Buffer Name Role Phone Caitlyn Bowie MD Primary Care Physician Encounter [facility] [place] Date(s): 06/23/22 - 08/13/22 [facility] [address] [place], [place] [address] Attending Physician: Caitlyn Bowie MD [...] ; Start Date: 03/22/22 Status: Ordered clindamycin topical 2% cream 1 application, Vaginally, Daily at bedtime, # 40 Gm, 0 Refills, Maintenance, 07/29/22 11:19:00 EST,[place], Partial fill upon patient request if the prescription is for a schedule II opioid drug. Start Date: 07/29/22 Status: Ordered diazepam 5 mg oral tablet [...] Status: Ordered furosemide 20 mg oral tablet 40 mg, 2, tablet, By Mouth, Daily, Refills 0, Maintenance, 04/13/22 20:02:00 EDT, ; Start Date: 04/13/22 Status: Ordered levothyroxine 25 mcg (0.025 mg) [...] Care Team Personnel Name: Lauren Wynnericia Position: [facility] Onco RN Member Role: Primary Care Nurse Name: Karen Pittman RN Position: [facility] RN Member Role: Primary Care Nurse Name: Shilpi Mattson Position: Reference Physician Member Role: Primary Care Nurse Address: Address: [address] [place] [address] [address] [place] [address]- [place] Name: Toyin Doherty RN Position: [facility] RN Member Role: Primary Care Nurse Name: Eben Hernandez NP Position: [facility] Associate Professional Member Role: Lifetime Consulting Provider Address: Address: [address] [place] [address]- Name: Alejandrina Turner RN Position: [facility] RN Member Role: Primary Care Nurse Name: Zoraida Felix RN Position: [facility] RN Member Role: Primary Care Nurse Name: Daphne Hooker RN Position: [facility] RN Member Role: Primary Care Nurse Name: Nasima Gonzalez RN Position: [facility] RN Supv Member Role: Primary Care Nurse Name: Caitlyn Bowie MD Position: [facility] Primary Care Physician Member Role: PCP Address: Address: [address] [place] [address]- Name: Sheeba García Position: [facility] RN Member Role: Primary Care Nurse Name: Kiki Abdi RN Position: [facility] RN Member Role: Primary Care Nurse Name: Marry Reza Position: [facility] RN Member Role: Primary Care Nurse Name: Veronica Hurst [place] Position: [facility] PCO RN Member Role: Lifetime Consulting Physician Name: Maddie Herrera RN Position: [facility] RN Member Role: Primary Care Nurse Name: Raegan Baptiste RN Position: [facility] RN Member Role: Primary Care Nurse Name: Svitlana Marcum RN Position: [facility] SALLY Nurse Member Role: Primary Care Nurse Name: She Pool Position: [facility] RN Member Role: Primary Care Nurse Name: Kaila Latham RN Position: [facility] RN Member Role: Primary Care Nurse Name: Julio C Bahena Position: [facility] RN Member Role: Primary Care Nurse Name: Nasima Heredia RN Position: [facility] RN Member Role: Primary Care Nurse Name: Katherine Nixon PharmD Position: [facility] Associate Professional Member Role: Lifetime Consulting Provider Address: Address: [address] [place] [address] Name: Daphne Barton RN Position: [facility] RN Member Role: Primary Care Nurse Name: Katherine Long RN Position: [facility] RN Member Role: Primary Care Nurse Name: Norma Serrano RN Position: [facility] RN Member Role: Primary Care Nurse Name: Seven Kelly RN Position: [facility] RN Member Role: Primary Care Nurse Name: Fani Perez RN Position: [facility] RN Member Role: Primary Care Nurse Name: Hattie Brewster RN Position: [facility] RN Member Role: Primary Care Nurse Name: Yudith Rothman RN Position: [facility] RN Member Role: Primary Care Nurse Name: Kelly Hernandez RN Position: [facility] RN Member Role: Primary Care Nurse Name: Parris Zuluaga RN Position: [facility] RN Member Role: Primary Care Nurse Care Team Related Persons Name: MARKZENAIDA ADAIR Address: [place] [address] Name: TIA RIVERS Address: [address] [address] Name: JOHANN RETANA Address: [place] [address]
--- OUTSIDE RECORDS SUMMARY | 2023-10-14 17:06 | XMS_ITS | Continuity of Care Document ---
Author Organization [facility] Address [address] [place] [address]- Care Team Providers Care Boat Hop Name Role Phone Caitlyn Bowie MD Primary Care Physician Encounter [facility] Date(s): 11/11/21 - 12/17/[address] [address] Attending Physician: Ron Laboy MD Admitting Physician: Ron Laboy MD Referring Physician: Caitlyn Bowie MD Allergies, [...] day, 0 Refills, Maintenance, 11/06/21 12:44:00 EDT, [place], Partialfill upon patient request if the prescription [...] Refills, Maintenance, 11/09/21 9:33:00 EDT, EC Capsule, [facility], Partial fill upon patient request if [...]
--- OUTSIDE RECORDS SUMMARY | 2023-10-14 17:06 | XMS_ITS | Continuity of Care Document ---
Author Organization [facility] Address [address] [place] [address]- Care Team Providers Care Fertilizer Mixer Name Role Phone Azeb STARK, Caitlyn Thompson Primary Care Physician [facility]counter [facility] Date(s): 10/29/21 - 12/01/21 [facility] [address] [place], [place] [address] Attending Physician: Kay WOODWORKING CRAFTSMAN, Rachel Allergies, Adverse Reactions, Alerts Substance Reaction [...] day, 0 Refills, Maintenance, 11/06/21 12:44:00 EDT, [place], Partialfill upon patient request if the [...] Refills, Maintenance, 11/09/21 9:33:00 EDT, EC Capsule, [facility], Partial fill upon patient request if [...]
--- OUTSIDE RECORDS SUMMARY | 2023-10-14 17:07 | XMS_ITS | Continuity of Care Document ---
Author Organization [facility] Address [address] [place] [address]- Care Team Providers Care Graphics Manager Name Role Phone Caitlyn Bowie MD Primary Care Physician [place] [facility] Date(s): 07/18/22 - 08/17/22 [facility] [address] [place] [address]- Attending Physician: Melissa Morrison Admitting Physician: Melissa [...] Lab Results Authored Date: * Event Display: Ultrasound Lower Extremity, Non-BH Authored Date: * Event Display: Ultrasound Lower Extremity, Non-BH Authored Date: * Event Display: Non BH Cardiovascular Results Authored Date: * Event Display: CT Scan Chest, Non- BH Authored Date: * Event Display: NM Nuclear Medicine, Non-BH Authored Date: * Event Display: CT Scan Chest, Non- BH Authored Date: * Event Display: Non BH Cardiovascular Results Authored Date: * Event Display: Non BH Cardiovascular Results Authored Date: * Event Display: Ultrasound Neck, Non-BH Authored Date: EKG study * Event Display: EKG Authored Date: Hospital Progress note * Patti [...] 6.6 k/mm3 Abs. Lymph 1.2 k/mm3 Abs. [place] 1.0 k/mm3 H Abs. Eo 0.1 k/mm3 Abs. Baso 0.1 k/mm3 Neut % 72.3 % Lymph % 13.5 % L [place] % 10.7 % H Eos % 1.2 [...] 99 ML/MIN/1.73 M2 MICROBIOLOGY Culture/Event_id: Fungal Culture, Respiratory/[id number] Collect date: 01/27/18 13:50 Result Status: Preliminary [...] plan as documented in the resident???s note. Patient Care team information Care Team Personnel Name: Val Wynne Position: [facility] Onco RN Member Role: Primary Care Nurse Name: Karen Pittman RN Position: [facility] RN Member Role: Primary Care Nurse Name: Shilpi Mattson Position: Reference Physician Member Role: Primary Care Nurse Address: Address: [address] [place] [address] [address] [place] [address]- [place] Name: Toyin Doherty RN Position: [facility] RN Member Role: Primary Care Nurse Name: Eben Hernandez NP Position: [facility] Associate Professional Member Role: Lifetime Consulting Provider Address: Address: [address] [place] [address]- [place] Name: Alejandrina Turner RN Position: [facility] RN Member Role: Primary Care Nurse Name: Zoraida Felix RN Position: [facility] RN Member Role: Primary Care Nurse Name: Daphne Hooker RN Position: [facility] RN Member Role: Primary Care Nurse Name: Nasima Gonzalez RN Position: [facility] RN Suprodney Member Role: Primary Care Nurse Name: Caitlyn Bowie MD Position: [facility] Primary Care Physician Member Role: PCP Address: Address: [address] [place] [address]- [place] Name: Sheeba García Position: S RN [...] Latham RN Position: [facility] ED RN W/OE and Tasks Member Role: Primary Care Nurse Name: Julio C Bahena Position: [facility] RN Member Role: Primary Care Nurse Name: Nasima Heredia RN Position: [facility] RN Member Role: Primary Care Nurse Name: Katherine Nixon PharmD Position: [facility] Associate Professional Member Role: Lifetime Consulting Provider Address: Address: [address] [place] [id number] Name: Daphne Barton RN [facility] Care Nurse Name: Hattie Brewster RN Position: [facility] RN Member Role: Primary Care Nurse Name: Yudith Rothman RN Position: [facility] RN Member Role: Primary Care Nurse Name: Kelly Hernandez RN Position: [facility] RN Member Role: Primary Care Nurse Name: Parris Zuluaga RN Position: [facility] RN Member Role: Primary Care Nurse Care Team Related Persons Name: ZENAIDA FLORES Address: [place], [place] Name: TIA RIVERS Address: home [address] [place] [address] Name: JOHANN RETANA Address: [place], [place]
--- OUTSIDE RECORDS SUMMARY | 2023-10-14 17:07 | XMS_ITS | Continuity of Care Document ---
Author Organization [facility] Address [address] [place] [address]- Care Team Providers Care Group Controller Name Role Phone Caitlyn Bowie MD Primary Care Physician [phone] Encounter [facility] [place] [facility] Date(s): 11/02/21 - 11/09/21 [facility] [address] [place], [place] [address] Encounter Diagnosis CHF - Congestive heart failure(Discharge Diagnosis) - 11/02/21 Muscle ache(Discharge Diagnosis) - 11/02/21 Attending Physician: Caitlyn Bowie MD Allergies, Adverse Reactions, Alerts Substance Reaction Severity Status ciprofloxacin Active gentamicin Active busPIRone Feeling of throat ti ghtness Headache Dizziness Active morphine Active barium sulfate Active iodinated radiocontrast dyes Active Voltaren Active Novocain Active Biaxin Active erythromycin Active penicillin 1 Active vancomycin Active ipratropium Active sulfa drugs Active Zithromax Active Flagyl Active Gastrografin Active Bee Stings [...] day, 0 Refills, Maintenance, 11/06/21 12:44:00 EDT, [place], Partialfill upon patient request if the prescription [...] Refills, Maintenance, 11/09/21 9:33:00 EDT, EC Capsule, [facility], Partial fill upon patient request if the prescription is for a schedule II opioid drug., 160, cm, 11/09/21 1:59:00 EDT... Start Date: 11/09/21 Status: Ordered predniSONE 20 mg oral tablet 2 tablet = 40 mg, By Mouth, Daily, # 2 tablet, 0 Refills, Acute 11/10/21 10:00:00 EDT, 11/09/21 9:33:00 EDT, Tablet, [facility], Partial fill upon patient request if the prescription isfor a schedule II opioid drug., 160, cm, 11/09/21 1... Start Date: 11/09/21 Stop Date: 11/10/21 Status: Ordered predniSONE 5 mg oral tablet [...] CHF - Congestive heart failure Discharge Diagnosis 11/02/21 Muscle ache Discharge Diagnosis 11/02/21 Vital Signs Most recent to oldest [Reference Range]: 1 Height 160 cm (11/02/21 2:21 PM) Weight 59 kg (11/02/21 2:21 PM) Oxygen Saturation [94-100 %] 97 % (11/02/21 2:21 PM) Pulse Rate [55-90 bpm] 64 bpm (11/02/21 2:21 PM) Body Mass Index [18.5-24.99] 23.05 (11/02/21 2:21 PM) Blood Pressure [90-138/55-84 mm Hg] 112/ 56mm Hg (11/02/21 2:21 PM) Respiratory Rate [16-30 br/min] 16 br/mi n (11/02/21 2:21 PM) Temperature [96.8-100.4 DegF] 98.0 DegF (11/02/21 2:21 PM) Mode of Delivery (Oxygen) Room air (11/02/21 2:21 PM) Blood pressure sites Arm, left (11/02/21 2:21 PM) Temperature Route Temporal (11/02/21 2:21 PM) Weight Obtained Via Standing scale (11/02/21 2:21 PM) Social History Social History Type Response Smoking Status Never smoker; Tobacc o user in household: No entered on: 04/05/17 Sex
--- OUTSIDE RECORDS SUMMARY | 2023-10-14 17:07 | XMS_ITS | Continuity of Care Document ---
Author Organization [facility] Address [address] [address]- Care Team Providers Care Fireproof Door Maker Name Role Phone Sharon Vides MD Primary Care Physician En[place] [facility] Date(s): 08/26/19 - 09/28/19 [facility] [address] [address]- [facility] Attending Physician: Rosendo Humphries MD Admitting Physician: [...] By Mouth, Daily, Dr. primo Renee at [place], # 30 tablet, 0 Refills, Maintenance, 01/26/18 16:36:23 EDT, ER Tablet Start Date: 01/26/18 Status: Ordered metroNIDAZOLE 500 mg oral tablet 1 tablet = 500 mg, By Mouth, Every 8 hours, may take with food to minimize abdominal discomfort, # 18 tablet, 0 Refills, Maintenance, 09/06/19 14:42:00 EST, Tablet, [facility], 160, cm,09/06/19 7:35:00 EST, Height, 60.3, [...]
--- OUTSIDE RECORDS SUMMARY | 2023-10-14 17:07 | XMS_ITS | Continuity of Care Document ---
Author Organization [facility] Address [address] [place] [address]- Care Team Providers Care Cutlet Maker Pork Name Role Phone Caitlyn Bowie MD Primary Care Physician [phone] 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(Discharge Diagnosis) - 01/24/22 Coronary artery disease(Discharge Diagnosis) - 01/24/22 Attending Physician: Caitlyn Bowie MD Allergies, Adverse [...] day, 0 Refills, Maintenance, 11/06/21 12:44:00 EDT, [place], Partialfill upon patient request if the prescription [...] 9:33:00 EDT, EC Capsule, [facility], Partial fill upon patient [...] Clinical Service Informant Antiphospholipid syndrome Discharge Diagnosis 01/24/22 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 Discharge Diagnosis 01/24/22 Coronary artery disease Discharge Diagnosis 01/24/22 Vital Signs Most recent to oldest [Reference Range]: 1 Height 160 cm (01/24/22 11:29 AM) Weight 59.3 kg (01/24/22 11:29 AM) Oxygen Saturation [94-100 %] 96 % (01/24/22 11:29 AM) Pulse Rate [55-90 bpm] 70 bpm (01/24/22 11:29 AM) Body Mass Index [18.5-24.99] 23.16 (01/24/22 11:29 AM) Blood Pressure [90-138/55-84 mm Hg] 104/ 50mm Hg (01/24/22 11:29 AM) Respiratory Rate [16-30 br/min] 16 br/mi n (01/24/22 11:29 AM) Temperature [96.8-100.4 DegF] 97.5 DegF (01/24/22 11:29 AM) Blood pressure sites Arm, left (01/24/22 11:29 AM) Temperature Route Temporal (01/24/22 11:29 AM) Weight Obtained Via Standing scale (01/24/22 11:29 AM) Social History Social History Type Response Smoking Status Never smoker; Tobacc o user in household: No entered on: 04/05/17 Sex
--- OUTSIDE RECORDS SUMMARY | 2023-10-14 17:07 | XMS_ITS | Continuity of Care Document ---
Author Organization [facility] Address [address] [place] [address]- Care Team Providers Care Escrow Clerk Name Role Phone Caitlyn Bowie MD Primary Care Physician [facility] [id number] Date(s): 07/14/21 - 07/21/21 [facility] [address] [place] [address]- Encounter Diagnosis Dizziness(Discharge Diagnosis) - 07/14/21 Lower extremity pain(Discharge Diagnosis) - 07/14/21 Anxiety(Discharge Diagnosis) - 07/14/21 Rib pain on left side(Discharge Diagnosis) - 07/14/21 Clicking neck(Discharge Diagnosis) - 07/14/21 Headache(Discharge Diagnosis) - 07/14/21 Attending Physician: Kay EXHIBIT CLEANER, Rachel Allergies, Adverse Reactions, Alerts Substance Reaction [...] 04/16/17 Give n SARS-CoV-2 (COVID-19) mRNA-1273 vaccine 1/28/21 R ecorded [...] Dates Health Status Cl inical Service Informant Dizziness Discharge Diagnosis 07/14/21 Lower extremity pain Discharge Diagnosis 07/14/21 Anxiety Discharge Diagnosis 07/14/21 Rib pain on left side Discharge Diagnosis 07/14/21 Clicking neck Discharge Diagnosis 07/14/21 Headache Discharge Diagnosis 07/14/21 Vital Signs Most recent to oldest [Reference Range]: 1 Height 160 cm (07/14/21 4:00 PM) Weight 57.2 kg (07/14/21 4:00 PM) Oxygen Saturation [94-100 %] 99 % (07/14/21 4:00 PM) Pulse Rate [55-90 bpm] 86 bpm (07/14/21 4:00 PM) Body Mass Index [18.5-24.99] 22.34 (07/14/21 4:00 PM) Blood Pressure [90-138/55-84 mm Hg] 118/ 57mm Hg (07/14/21 4:00 PM) Temperature [96.8-100.4 DegF] 97.9 DegF (07/14/21 4:00 PM) Temperature Route Temporal (07/14/21 4:00 PM) Social History Social History Type Response Smoking Status Never smoker; Tobacc o user in household: No entered on: 04/05/17 Sex
--- OUTSIDE RECORDS SUMMARY | 2023-10-14 17:07 | XMS_ITS | Continuity of Care Document ---
Author Organization [facility] Address [address] [place] [address]- Care Team Providers Care Shrimp Header Name Role Phone Caitlyn Bowie MD Primary Care Physician Encounter [facility] [place] Date(s): 11/06/21 - 11/09/[address] [address]- Encounter Diagnosis COPD exacerbation(Final) - 11/08/21 Discharge Disposition: A-D/C Home Attending Physician: Tami Santos MD Admitting Physician: Reginaldo Torres MD Referring Physician: Not on Staff, Referring [...] day, 0 Refills, Maintenance, 11/06/21 12:44:00 EDT, [place], Partialfill upon patient request if the prescription [...] drug. Start Date: 09/24/21 Status: Ordered metoprolol 25 mg oral tablet 25 mg, Tablet, By Mouth, Hold for: SBP<90 HR<65 MAP <65, 11/08/21 21:00:00 EDT Start Date: 11/08/21 Stop Date: 11/08/21 Status: Completed omeprazole 40 mg oral enteric coated capsule 1 capsule = 40 mg, By Mouth, Daily, # 5 capsule, 0 Refills, Maintenance, 11/09/21 9:33:00 EDT, EC Capsule, [facility], Partial fill upon patient request if the prescription is for a schedule II opioid drug., 160, cm, 11/09/21 1:59:00 EDT... Start Date: 11/09/21 Status: Ordered predniSONE 20 mg oral tablet 2 tablet = 40 mg, By Mouth, Daily, # 2 tablet, 0 Refills, Acute 11/10/21 10:00:00 EDT, 11/09/21 9:33:00 EDT, Tablet, [facility], Partial fill upon patient [...] for Microbiology Reports Name Date Blood Culture 11/06/21 Blood Culture #2 11/06/21 Microbiology Reports TEST:Blood Culture STATUS:Unauthenticated BODY SITE: SOURCE:Blood COLLECTED DATE/TIME:11/06/21 4:50 AM Blood Culture SPECIMEN DESCRIPTION : BLOOD LEFT HAND SPECIAL REQUESTS : NONE CULTURE : NO GROWTH 3 DAYS REPORT STATUS : PRELIMINARY REPORT TEST:Blood Culture, Second Order STATUS:Unauthenticated BODY SITE: SOURCE:Blood COLLECTED DATE/TIME:11/06/21 4:50 AM Blood Culture, Second Order SPECIMEN DESCRIPTION : BLOOD RIGHT HAND SPECIAL REQUESTS : NONE CULTURE : NO GROWTH 3 DAYS REPORT STATUS : PRELIMINARY REPORT Radiology Reports * Exam Date Time Procedure Performing Provider Status 11/06/21 5:10 AM Chest 2 Views Frontal and Lat Precious Lynch; Auth (Verified) Notes: (Chest 2 Views Frontal and Lat) Reason For Exam: Shortness of Breath, Fever;Other: RESULT: Chest 2 Views Frontal and Lat PA and lateral chest dated November 06, 2021. Comparison films are from September 23, 2021. HISTORY: Shortness of breath. FINDINGS: The cardiac silhouette is increased in size and unchanged. Mural calcifications are present in the aorta and Airways. Some very minimal interstitial thickening is present bilaterally. Thereis evidence of pleural effusions left greater than right. Airspace infiltrates in the right upper lobe have resolved. Degenerative changes are noted in the spine. IMPRESSION: Interval clearance of airspace infiltrates on the right. Mild interstitial edema. Small left pleural effusion with questionable associated atelectasis or pneumonia. Minimal right effusion. Examination [id number]. Thank you for allowing me to participate in the care of this patient. WSN: [id number] Ordering Physician: Zaire Faustin Dictated By: Orlin Elena MD Dictated Date/Time: 11/06/21 9:34 am Reviewed By: Orlin Elena MD Signed By: Orlin Elena MD Signed Date/Time: 11/06/21 9:34 am Transcribed By: MART Transcribed Date/Time: 11/06/21 9:34 am Vital Signs Most recent to oldest [Reference Range]: 1 2 3 Height 160 cm (11/09/21 10:51 AM) 160 cm (11/09/21 1:59 AM) 160 cm (11/08/21 10:45 PM) Weight 57.5 kg (11/08/21 6:23 AM) 57.5 kg (11/07/21 12:13 AM) Oxygen Saturation [94-100 %] 100 % (11/09/21 10:51 AM) 97 % (11/09/21 1:59 AM) 97 % (11/08/21 8:03 PM) Pulse Rate [55-90 bpm] 93 bpm *H* (11/09/21 10:51 AM) 80 bpm (11/09/21 1:59 AM) 90 bpm (11/08/21 10:47 PM) Body Mass Index [18.5-24.99] 22.46 (11/07/21 12:13 AM) Blood Pressure [90-138/55-84 mm Hg] 122/54mm Hg (11/09/21 10:51 AM) 129/61mm Hg (11/08/21 10:45 PM) 111/44mm Hg (11/08/21 8:03 PM) Respiratory Rate [16-30 br/min] 17 br/min (11/09/21 10:51 AM) 18 br/min (11/09/21 1:59 AM) 18 br/min (11/08/21 8:03 PM) Temperature [96.8-100.4 DegF] 98.0 DegF (11/09/21 10:51 AM) 98.6 DegF (11/09/21 1:59 AM) 98.6 DegF (11/08/21 8:03 PM) Liters per Minute 2 L/min (11/08/21 8:03 PM) 2 L/min (11/08/21 6:20 PM) 2 L/min (11/08/21 11:47 AM) Mode of Delivery (Oxygen) Room air (11/09/21 10:51 AM) CPAP (11/09/21 1:59 AM) Simple face mask (11/08/21 8:03 PM) Blood pressure sites Arm, right (11/09/21 10:51 AM) Arm, right (11/08/21 10:45 PM) Arm, right (11/08/21 8:03 PM) Temperature Route Oral (11/09/21 10:51 AM) Axillary (11/09/21 1:59 AM) Oral (11/08/21 8:03 PM) Dry Weight 57.5 kg (11/07/21 12:13 AM) Social History Social History Type Response Smoking Status Never smoker; Tobacc o user in household: No entered on: 04/05/17 Sex
--- OUTSIDE RECORDS SUMMARY | 2023-10-14 17:07 | XMS_ITS | Continuity of Care Document ---
Author Organization [facility] Address [address] [place] [address]- Care Team Providers Care Men'S Designer Name Role Phone Peewee STARK, Sharon Primary Care Physician ( [phone] Encounter [facility] [place] Date(s): 12/05/19 - 01/04/20 [facility] [address] [place] [address]- [facility] Attending Physician: Melissa Morrison [...] By Mouth, Daily, Dr. primo Renee at [place], # 30 tablet, 0 Refills, Maintenance, 01/26/18 16:36:23 EDT, ER Tablet Start Date: 01/26/18 Status: Ordered metroNIDAZOLE 500 mg oral tablet 1 tablet = 500 mg, By Mouth, Every 8 hours, may take with food to minimize abdominal discomfort, # 18 tablet, 0 Refills, Maintenance, 09/06/19 14:42:00 EST, Tablet, [facility], 160, cm,09/06/19 7:35:00 EST, Height, 60.3, [...]
--- OUTSIDE RECORDS SUMMARY | 2023-10-14 17:07 | XMS_ITS | Continuity of Care Document ---
Author Organization [facility] Address [address] [address]- Care Team Providers Care Blanket Cutting Machine Operator Name Role Phone Caitlyn Bowie MD Primary Care Physician Encounter [facility] Date(s): 06/14/21 - 07/14/21 [facility] [address] [place] [id number] Allergies, Adverse Reactions, Alerts Substance [...] Start Date: 07/03/21 Status: Ordered nystatin topical 420698 u/gm powder 1 application, Topically, 3 times [...]
--- OUTSIDE RECORDS SUMMARY | 2023-10-14 17:07 | XMS_ITS | Continuity of Care Document ---
Author Organization [facility] Address [address] [place] [address]- Care Team Providers Care Customer Advisor Name Role Phone Caitlyn Bowie MD Primary Care Physician [place] [facility] [place] 01/20/21 - 02/19/21 [facility] [address] [place] [address]- Allergies, Adverse Reactions, Alerts Substance Reaction Severity [...] a day, Dr. primo Renee at [place], per pt, # 30 tablet, 0 Refills, [...]
--- OUTSIDE RECORDS SUMMARY | 2023-10-14 17:07 | XMS_ITS | Continuity of Care Document ---
Author Organization [facility] Address [address] [place] [address]- Care Team Providers Care Transition Assistant Name Role Phone Caitlyn Bowie MD Primary Care Physician Encounter [facility] Date(s): 12/20/22 - 04/22/23 [facility] [address] [place] [address] Discharge Disposition: A-D/C Home Attending [...] oldest [Reference Range]: 1 Height 158 cm (12/23/22 10:29 AM) Weight 60.1 kg (12/23/22 10:29 AM) Oxygen Saturation [94-100 %] 96 % (12/23/22 10:29 AM) Pulse Rate [55-90 bpm] 79 bpm (12/23/22 10:29 AM) Body Mass Index [18.5-24.99 kg/m2] 24.07 kg/m2 (12/23/22 10:29 AM) Blood Pressure [90-138/55-84 mm Hg] 118/ 66mm Hg (12/23/22 10:29 AM) Temperature [96.8-100.4 DegF] 97.7 DegF (12/23/22 10:29 AM) Mode of Delivery (Oxygen) Room air (12/23/22 10:29 AM) Blood pressure sites Arm, right (12/23/22 10:29 AM) Temperature Route Oral (12/23/22 10:29 AM) Weight Obtained Via Standing scale (12/23/22 10:29 AM) Social History Social History Type [...] Role: Primary Care Nurse Address: Address: [address] [place] [address] [address] [place] [address]- [place] Name: Toyin Doherty RN Position: [facility] RN Member Role: Primary Care Nurse Name: Eben Hernandez NP Position: [facility] Associate Professional Member Role: Lifetime Consulting Provider Address: Address: [address] [place] [address]- [place] Name: Alejandrina Turner RN Position: [facility] RN Member Role: Primary Care Nurse Name: Zoraida Felix RN Position: [facility] RN Member Role: Primary Care Nurse Name: Daphne Hooker RN Position: [facility] RN Member Role: Primary Care Nurse Name: Nasima Gonzalez RN Position: [facility] RN Supv Member Role: Primary Care Nurse Name: Caitlyn Bowie MD Position: [facility] Physician - Primary Care Member Role: PCP Address: Address: [address] [place] [address]- [place] Name: Kiki Abdi RN Position: [facility] RN Member Role: Primary Care Nurse Name: Marry Reza Position: [facility] RN Member Role: Primary Care Nurse Name: Veronica Hurst MA Position: [facility] SALLY MA Member Role: Lifetime Consulting Physician Name: Yudith Ruiz RN Position: [facility] Onco RN Member Role: Primary Care Nurse Name: Maddie Herrera RN Position: [facility] AMB Nurse Member Role: Primary Care Nurse Name: Raegan Baptiste RN Position: [facility] RN Member Role: Primary Care Nurse Name: She Pool Position: [facility] RN Member Role: Primary Care Nurse Name: Kaila Latham RN Position: [facility] RN Member Role: Primary Care Nurse Name: Julio C Bahena Position: [facility] RN Member Role: Primary Care Nurse Name: Nasima Heredia RN Position: [facility] RN Member Role: Primary Care Nurse Name: Katherine Nixon PharmD Position: [facility] Associate Professional Member Role: Lifetime Consulting Provider Address: Address: [address] [place] [address]- [place] Name: Daphne Barton RN Position: [facility] RN Member Role: Primary Care Nurse Name: Katherine Long RN Position: [facility] RN Member Role: Primary Care Nurse Name: Norma Serrano RN Position: [facility] RN Member Role: Primary Care Nurse Name: Seven Kelly RN Position: [facility] RN Member Role: Primary Care Nurse Name: Fani Perez RN Position: [facility] RN Member Role: Primary Care Nurse Name: Hattie Brewster RN Position: [facility] RN Member Role: Primary Care Nurse Name: Kelly Hernandez RN Position: [facility] RN Member Role: Primary Care Nurse Name: Pallavi Wylie LPN Position: [facility] RN Member Role: Primary Care Nurse Name: Parris Zuluaga RN Position: [facility] RN Member Role: Primary Care Nurse Name: Samira STARK(Hem/Onc)Christo Position: [facility] Physician - Oncology Med Service: Hematology & Oncology Member Role: Admitting Physician Address: Address: [address] [place] [address] for Cancer Care [facility] [place] [address]- [place] Care Team Related Persons Name: MARKZENAIDA ADAIR Address: [place] [address] Name: TIA RIVERS Address: [place] [address] Name: JOHANN RETANA Address: [place] [address]
--- OUTSIDE RECORDS SUMMARY | 2023-10-14 17:07 | XMS_ITS | Continuity of Care Document ---
Author Organization [facility] Address [address] [place] [address]- Care Team Providers Care Fire Extinguisher Installer Name Role Phone Caitlyn Bowie MD Primary Care Physician [phone] Encounter [facility] Date(s): 07/08/21 - 08/21/21 [facility] [address] [place], [place] [address] Attending Physician: Kay MARKETING SYSTEMS ANALYST, Rachel Allergies, Adverse Reactions, Alerts Substance Reaction [...] vaccine, inactivated 04/16/17 Give n SARS-CoV-2 (COVID-19) mRNA-1272 vaccine 08/06/20 R ecorded Influenza Virus Vaccine [...]
--- OUTSIDE RECORDS SUMMARY | 2023-10-14 17:07 | XMS_ITS | Continuity of Care Document ---
Author Organization [facility] ter Address [address] [place] [address]- Care Team Providers Care Dry Wall Installer Name Role Phone Caitlyn Bowie MD Primary Care Physician [phone] Encounter [facility] Date(s): 12/11/21 - 01/16/[address] [address] Attending Physician: Caitlyn Bowie MD Admitting Physician: Caitlyn Bowie MD Referring Physician: Caitlyn Bowie MD Allergies, Adverse Reactions, Alerts Substance Reaction Severity Status ciprofloxacin Active erythromycin Active penicillin 1 Active barium sulfate Active iodinated radiocontrast dyes Active gentamicin Active vancomycin Active ipratropium Active morphine Active sulfa drugs Active Novocain Active Gastrografin Active Levaquin Avocado Active Voltaren [...] day, 0 Refills, Maintenance, 11/06/21 12:44:00 EDT, [place], Partialfill upon patient request if the prescription [...] Refills, Maintenance, 11/09/21 9:33:00 EDT, EC Capsule, [facility] 3, Partial fill upon patient request [...]
--- OUTSIDE RECORDS SUMMARY | 2023-10-14 17:07 | XMS_ITS | Continuity of Care Document ---
Author Organization [facility] ter Address [address] [place] [address]- Care Team Providers Care Stepdown Nurse Name Role Phone Azeb STARK, Caitlyn Thompson Primary Care Physician [phone] Encounter [facility] Date(s): 02/24/21 - 03/01/[address] [address]- Discharge Disposition: A-D/C Home Attending Physician: Estefani Lopes MD Admitting Physician: Ean Gonzales MD Referring Physician: Not on Staff, Referring MD Allergies, Adverse Reactions, Alerts Substance Reaction Severity Status ciprofloxacin Active gentamicin Active erythromycin Active penicillin 1 Active vancomycin Active barium sulfate Active sulfa drugs Active iodinated radiocontrast dyes Active Voltaren Active Biaxin Active Gastrografin Active Levaquin Avocado Active Bee Stings Active Contrast Dye Active Mold Active morphine Active Zithromax Active Flagyl Active Novocain Active Avelox Active Avocado Active Shrimp Active 1Allergy testing [...] release 50 mg, XL Tablet, By Mouth, 03/01/21 7:00:00 EDT Start Date: 03/01/21 Stop Date: 03/01/21 Status: Completed Metoprolol Succinate ER 50 mg oral tablet, extended release 1 tablet = 50 mg, By Mouth, 2 times a day, Dr. primo Renee at [place], per pt, # 30 tablet, 0 Refills, [...] Name Date Sputum Culture w/ Gram Smear 02/24/21 Blood Culture 02/24/21 Blood Culture #2 02/24/21 Microbiology Reports TEST:Sputum Culture STATUS:Auth (Verified) BODY SITE: SOURCE:EXPECT COLLECTED DATE/TIME:02/24/21 6:20 PM Sputum Culture SPECIMEN DESCRIPTION : EXPECTORATED SPUTUM SPECIAL REQUESTS : NONE GRAM STAIN : 2+ WHITE BLOOD CELLS 1+ SQ.EPITHELIAL CELLS 1+ GRAM POSITIVE COCCI CULTURE : 2+ NORMAL DION REPORT STATUS : FINAL 02/27/2021 TEST:Blood Culture STATUS:Auth (Verified) BODY SITE: SOURCE:Blood COLLECTED DATE/TIME:02/24/21 3:15 AM Blood Culture SPECIMEN DESCRIPTION : BLOOD L AC SPECIAL REQUESTS : NONE CULTURE : NO GROWTH 5 DAYS. REPORT STATUS : FINAL 03/01/2021 TEST:Blood Culture, Second Order STATUS:Auth (Verified) BODY SITE: SOURCE:Blood COLLECTED DATE/TIME:02/24/21 3:15 AM Blood Culture, Second Order SPECIMEN DESCRIPTION : BLOOD R HAND SPECIAL REQUESTS : NONE CULTURE : NO GROWTH 5 DAYS. REPORT STATUS : FINAL 03/01/2021 Radiology Reports * Exam Date Time Procedure Performing Provider Status 02/28/21 9:14 AM Chest 2 Views Frontal and Lat Sheila Castle; Auth (Verified) Notes: (Chest 2 Views Frontal and Lat) Reason For Exam: Cough;Cough RESULT: Chest 2 Views Frontal and Lat Chest 2 Views Frontal and Lat Reason: Cough; Clinical Question(s): Pulmonary Edema COMPARISON: 02/25/2021 and 02/24/2021. FINDINGS: LINES AND TUBES: None. LUNGS AND PLEURA: Again demonstrated is a moderate-sized left pleural effusion with compressive atelectasis. Underlying airspace disease cannot be excluded. There is no evidence of a pneumothorax. HEART, MEDIASTINUM AND PAULIE: Heart is normal in size. Normal upper mediastinal and hilar contour. BONES AND SOFT TISSUES: No acute abnormality. IMPRESSION: Stable abnormal chest radiograph. WSN: [id number] Ordering Physician: Remi Tavera Dictated By: Mackenzie Stratton MD Dictated Date/Time: 02/28/21 9:35 am Reviewed By: Mackenzie Stratton MD Signed By: Mackenzie Stratton MD Signed Date/Time: 02/28/21 9:35 am Transcribed By: MART Transcribed Date/Time: 02/28/21 9:31 am * Exam Date Time Procedure Performing Provider Status 02/25/21 6:14 PM Chest 2 Views Frontal and Lat Katherine Her; Da (Verified) Notes: (Chest 2 Views Frontal and Lat) Reason For Exam: CHF RESULT: Chest 2 Views Frontal and Lat Chest 2 Views Frontal and Lat Reason: CHF; Clinical Question(s): Follow-Up Abnormal Exam; Order Comment: Spoke to RN, xray cant be done right now, call back later after 1600 02 25 2021 15:23:06 EDT COMPARISON: 02/24/2021 FINDINGS: LINES AND TUBES: None. LUNGS AND PLEURA: Linear density left lung similar previous examination. Right lung opacity has largely resolved. Persistent left pleural effusion. No pneumothorax. HEART, MEDIASTINUM AND PAULIE: Heart is normal in size. Normal upper mediastinal and hilar contour. BONES AND SOFT TISSUES: No acute abnormality. IMPRESSION: Significant interval improvement in the right lung opacification likely representing improved pulmonary edema. Persistent left pleural effusion. WSN: [id number] Ordering Physician: Lanre Licea Dictated By: Jere Shankar MD Dictated Date/Time: 02/25/21 6:19 pm Reviewed By: Jere Shankar MD Signed By: Jere Shankar MD Signed Date/Time: 02/25/21 6:19 pm Transcribed By: MART Transcribed Date/Time: 02/25/21 6:17 pm * Exam Date Time Procedure Performing Provider Status 02/24/21 3:44 AM Chest Portable Kirill Luciano ( Verified) Notes: (Chest Portable) Reason For Exam: Chest Pain;Other: RESULT: Chest Portable Chest Portable Hx of Present Illness: shortness of breath and chest pain that started 3 hours ago. pt was d c'd from hospital one week ago for pneumonia.; Reason: Other:; Chest Pain; Clinical Question(s): CHF COMPARISON: 02/03/2021. FINDINGS: LINES AND TUBES: None. LUNGS AND PLEURA: No significant interval change is noted in multifocal areas of groundglass density in the right lung. Persistent increased density in the left lung base consistent with focal atelectasis and/or infiltrates with a small left pleural effusion unchanged. Small left pleural effusion persists. No pneumothorax. HEART, MEDIASTINUM AND PAULIE: Heart is normal in size. Normal upper mediastinal and hilar contour. BONES AND SOFT TISSUES: Mild degenerative changes at the shoulders bilaterally. IMPRESSION: Continued groundglass opacities in the right upper lobe and right lower lobe of the lungs. Persistent retrocardiac density with a small left pleural effusion unchanged. Clinical diagnosis of parainflunza pneumonia. WSN: [id number] Ordering Physician: Joe Mckeon Dictated By: Emanuel Donato MD, V Dictated Date/Time: 02/24/21 9:03 am Reviewed By: Emanuel Donato MD, V Signed By: Emanuel Donato MD, V Signed Date/Time: 02/24/21 9:03 am Transcribed By: MART Transcribed Date/Time: 02/24/21 8:59 am Vital Signs Most recent to oldest [Reference Range]: 1 2 3 Height 134.6 cm (02/28/21 8:32 PM) 134.6 cm (02/27/21 6:07 PM) 134.6 cm (02/26/21 4:00 PM) Weight 65.2 kg (02/25/21 6:23 AM) 64.8 kg (02/24/21 9:00 AM) Oxygen Saturation [94-100 %] 99 % (03/01/21 9:00 AM) 96 % (02/28/21 8:32 PM) 98 % (02/28/21 3:00 PM) Pulse Rate [55-90 bpm] 79 bpm (03/01/21 9:37 AM) 83 bpm (03/01/21 9:00 AM) 103 bpm *H* (02/28/21 8:32 PM) Blood Pressure [90-138/55-84 mm Hg] 140/59mm Hg *H* (03/01/21 9:37 AM) 133/70mm Hg (03/01/21 9:00 AM) 117/85mm Hg (02/28/21 8:32 PM) Respiratory Rate [16-30 br/min] 18 br/min (03/01/21 9:00 AM) 18 br/min (02/28/21 8:32 PM) 20 br/min (02/28/21 3:00 PM) Temperature [96.8-100.4 DegF] 97.9 DegF (03/01/21 9:00 AM) 98.6 DegF (02/28/21 8:32 PM) 99.1 DegF (02/28/21 3:00 PM) Liters per Minute 3 L/min (02/25/21 12:00 AM) 3 L/min (02/24/21 10:00 PM) 4 L/min (02/24/21 9:47 PM) Mode of Delivery (Oxygen) Room air (03/01/21 9:00 AM) Room air (02/28/21 8:00 PM) Room air (02/28/21 3:00 PM) Blood pressure sites Arm, left (03/01/21 9:00 AM) Arm, left (02/28/21 8:32 PM) Arm, left (02/28/21 3:00 PM) Temperature Route Temporal (03/01/21 9:00 AM) Oral (02/28/21 8:32 PM) Oral (02/28/21 3:00 PM) Weight Obtained Via Bed scale (02/25/21 6:23 AM) Social History Social History Type Response Smoking Status Never smoker; Tobacc o user in household: No entered on: 04/05/17 Sex
--- OUTSIDE RECORDS SUMMARY | 2023-10-14 17:08 | XMS_ITS | Continuity of Care Document ---
Author Organization [facility] ter Address [address] [place] [address]- Care Team Providers Care Help Desk Analyst Name Role Phone Caitlyn Bowie MD Primary Care Physician [phone] [place] [facility] Date(s): 04/18/22 - 05/27/[address] [address] Attending Physician: Rachel Villanueva NP Admitting Physician: Kay [facility], Rachel Referring Physician: Kay [facility], Rachel Allergies, Adverse Reactions, Alerts Substance Reaction Severity Status ciprofloxacin Active erythromycin Active busPIRone Feeling of throat ti ghtness Headache Dizziness Active ipratropium Active morphine Active barium sulfate Active Zithromax Active Flagyl Active Novocain Active gentamicin Active penicillin 1 Active vancomycin Active sulfa drugs Active iodinated radiocontrast dyes Active Voltaren Active Biaxin Active Gastrografin Active Bee Stings Active Contrast [...] Member Role: Primary Care Nurse Address: Address: [address] [place] [address] [address] [place], [place] [address] Name: Toyin Doherty RN Position: S RN Member Role: Primary Care Nurse Name: Eben Hernandez NP Position: [facility] Associate Professional Member Role: Lifetime Consulting Provider Address: Address: [address] [place] [address]- Name: Alejandrina Turner RN [facility]: [facility] Care Physician Member Role: PCP Address: Address: [address] [place] [address]- Name: Sheeba García Position: [facility] RN Member Role: Primary Care Nurse Name: Kiki Abdi RN Position: [facility] RN Member Role: Primary Care Nurse Name: Marry Reza Position: [facility] RN Member Role: Primary Care Nurse Name: Veronica Hurst MA Position: [facility] PCO RN Member Role: Lifetime Consulting Physician Name: Maddie Herrera RN Position: [facility] RN [...] Role: Lifetime Consulting Provider Address: Address: [address] [place] [address]- Name: Daphne Barton RN Position: [facility] RN Member Role: Primary Care Nurse Name: Katherine Long RN Position: [facility] RN Member Role: Primary Care Nurse Name: Norma Serrano RN Position: [facility] RN Member Role: Primary Care Nurse Name: Aurea Kelly RN Position: [facility] [...] Persons Name: ZENAIDA FLORES Address: [address] [place] [address] Name: TIA RIVERS Address: home [address] [place] [id number] Name: JOHANN RETANA Address: [place] [address]
--- OUTSIDE RECORDS SUMMARY | 2023-10-14 17:08 | XMS_ITS | Continuity of Care Document ---
Author Organization [facility] Address [address] [place] [address]- Care Team Providers Care Pharmacy Technologist Name Role Phone Caitlyn Bowie MD Primary Care Physician Encounter [facility] Date(s): 03/01/23 - 03/31/23 [facility] [address] [place], [place] [address] Allergies, Adverse Reactions, Alerts [...] Karen Pittman RN Position: [facility] RN Member Role: Primary Care Nurse Name: Shilpi Mattson Position: Reference Physician Member Role: Primary Care Nurse Address: Address: [address] [place] [address]- Name: Toyin Doherty RN Position: [facility] RN Member Role: Primary Care Nurse Name: Eben Hernandez NP Position: [facility] Associate Professional Member Role: Lifetime Consulting Provider Address: Address: [address] [place] [address]- Name: Alejandrina Turner RN Position: [facility] RN Member Role: Primary Care Nurse Name: Zoraida Felix RN Position: [facility] RN Member Role: Primary Care Nurse Name: Daphne Hooker RN Position: [facility] RN Member Role: Primary Care Nurse Name: Nasima Gonzalez RN Position: [facility] RN Loyda Member Role: Primary Care Nurse Name: Caitlyn Bowie MD Position: [facility] Physician - Primary Care Member Role: PCP Address: Address: [address] [place] [address]- Name: Kiki Abdi RN Position: [facility] RN Member Role: Primary Care Nurse Name: Marry Reza Position: S RN Member Role: Primary Care Nurse Name: Veronica Hurst MA Position: [facility] SALLY JORGENSEN Member Role: Lifetime Consulting Physician [...] Care Nurse Name: Katherine Nixon PharmD Position: [facility] Associate Professional Member Role: Lifetime Consulting Provider Address: Address: [address] [place] [address] Name: Daphne Barton RN [facility] [...] Rothman RN Position: [facility] Onco RN Member Role: Primary Care Nurse Name: Kelly Hernandez RN Position: [facility] RN Member Role: Primary Care Nurse Name: Parris Zuluaga RN Position: [facility] RN Member Role: Primary Care Nurse Care Team Related Persons Name: ZENAIDA FLORES Address: [place] [address] Name: TIA RIVERS Address: [place] [address] Name: JOHANN RETANA Address: [place] [address]
--- OUTSIDE RECORDS SUMMARY | 2023-10-14 17:08 | XMS_ITS | Continuity of Care Document ---
Author Organization [facility] ter Address [address] [place] [address]- Care Team Providers Care Rasper Machine Operator Name Role Phone Peewee STARK, Sharon Primary Care Physician Encounter [facility] Date(s): 07/23/19 - 07/30/[address] [address]- [facility] Attending Physician: Tonio STARK, Yenny Quiroz Allergies, Adverse Reactions, Alerts Substance Reaction Severity [...] By Mouth, Daily, Dr. primo Renee at [place], # 30 tablet, 0 Refills, Maintenance, 01/26/18 [...]
--- OUTSIDE RECORDS SUMMARY | 2023-10-14 17:08 | XMS_ITS | Continuity of Care Document ---
Author Organization [facility] Address [address] [place] [address]- Care Team Providers Care Medical Transcriptionist Name Role Phone Azeb STARK, Caitlyn Thompson Primary Care Physician [phone] Encounter [facility] [id number] Date(s): 09/22/21 - 09/29/21 [facility] [address] [place], [place] [address] Attending Physician: Donell Mcmahon MD Allergies, [...] Ordered meclizine 25 mg oral tablet 1 tablet, By Mouth, 3 times a day, PRN NEEDED FOR MOTION SICKNESS, # 30 tablet, 4 Refills, [facility], 160, cm, 09/24/21 16:15:00 EDT, Height, 57.5, kg, 09/24/21 1:23:00 EDT, DryWeight Start Date: 09/29/21 Status: Ordered melatonin 3 mg oral tablet [...] oldest [Reference Range]: 1 Height 160 cm (09/22/21 11:24 AM) Weight 57.2 kg (09/22/21 11:24 AM) Oxygen Saturation [94-100 %] 98 % (09/22/21 11:24 AM) Pulse Rate [55-90 bpm] 83 bpm (09/22/21 11:24 AM) Body Mass Index [18.5-24.99] 22.34 (09/22/21 11:24 AM) Blood Pressure [90-138/55-84 mm Hg] 126/ 60mm Hg (09/22/21 11:24 AM) Mode of Delivery (Oxygen) Room air (09/22/21 11:24 AM) Blood pressure sites Arm, left (09/22/21 11:24 AM) Social History Social History Type Response Smoking Status Never smoker; Tobacc o user in household: No entered on: 04/05/17 Sex
--- OUTSIDE RECORDS SUMMARY | 2023-10-14 17:08 | XMS_ITS | Continuity of Care Document ---
Author Organization [facility] Address [address] [place] [address]- Care Team Providers Care Coronary Care Unit Nurse Name Role Phone Azeb STARK, Caitlyn Thompson Primary Care Physician [facility]counter [facility] Date(s): 11/05/21 - 12/05/21 [facility] [address] [place], [place] [address] Allergies, Adverse Reactions, [...] day, 0 Refills, Maintenance, 11/06/21 12:44:00 EDT, [place], Partialfill upon patient request if the prescription [...] Refills, Maintenance, 11/09/21 9:33:00 EDT, EC Capsule, [facility] 3, Partial fill upon patient request if [...]
--- OUTSIDE RECORDS SUMMARY | 2023-10-14 17:08 | XMS_ITS | Continuity of Care Document ---
Author Organization [facility] Address [address] [place] [address]- Care Team Providers Care Clinical Resource Nurse Name Role Phone Caitlyn Bowie MD Primary Care Physician [phone] Encounter [facility] [place] Date(s): 09/07/22 - 10/07/22 [facility] [address] [place] [address]- [place] Allergies, Adverse Reactions, Alerts Substance Reaction [...] 15:50:00 EDT, 09/12/22 15:50:00 EST, [facility], 159, cm, 09/12/22 11:14:00 EST, [...] Role: Primary Care Nurse Address: Address: [address] [place] [address] [address] [place] [address]- [place] Name: oTyin Doherty RN Position: [facility] RN Member Role: Primary Care Nurse Name: Eben Hernandez NP Position: [facility] Associate Professional Member Role: Lifetime Consulting Provider Address: Address: [address] [place] [address]- Name: Alejandrina Turner RN Position: [facility] RN Member Role: Primary Care Nurse Name: Zoraida Felix RN Position: [facility] RN Member Role: Primary Care Nurse Name: Daphne Hooker RN Position: [facility] RN Member Role: Primary Care Nurse Name: Nasima Gonzalez RN Position: [facility] RN Supv Member Role: Primary Care Nurse Name: Caitlyn Bowie MD Position: [facility] Primary Care Physician Member Role: PCP Address: Address: [address] [place] [address]- Name: Sheeba García Position: [facility] RN Member Role: Primary Care Nurse Name: Kiki Abdi RN Position: [facility] RN Member Role: Primary Care Nurse Name: Marry Reza Position: [facility] RN Member Role: Primary Care Nurse Name: Veronica Hurst MA Position: [facility] PCO RN Member Role: Lifetime Consulting Physician Name: Maddie Herrera RN Position: [facility] RN Member Role: Primary Care Nurse Name: Raegan Baptiste RN Position: [facility] RN Member Role: Primary Care Nurse Name: Svitlana Marcum RN Position: [facility] AMB Nurse [...] Care Nurse Name: Katherine Nixon PharmD Position: [facility] Associate Professional Member Role: Lifetime Consulting Provider Address: Address: [address] [place] [address] Name: Daphne Barton RN Position: [facility] RN Member Role: Primary Care Nurse Name: Katherine Long RN Position: [facility] RN Member Role: Primary Care Nurse Name: Norma Serrano RN Position: [facility] RN Member Role: Primary Care Nurse Name: Seven Kelly RN Position: [facility] RN Member Role: Primary Care Nurse Name: Fani Perez RN Position: [facility] RN Member Role: Primary Care Nurse Name: Hattie Brewster RN Position: [facility] RN Member Role: Primary Care Nurse Name: Yudith Rothman RN Position: [facility] Onco RN Member Role: Primary Care Nurse Name: Kelly Hernandez RN Position: [facility] RN Member Role: Primary Care Nurse Name: Parris Zuluaga RN Position: [facility] RN Member Role: Primary Care Nurse Care Team Related Persons Name: ZENAIDA FLORES Address: [place] [address] Name: TIA RIVERS Address: [address] [address] Name: JOHANN RETANA Address: [place] [address]
--- OUTSIDE RECORDS SUMMARY | 2023-10-14 17:08 | XMS_ITS | Continuity of Care Document ---
Author Organization [facility] Address [address] [place] [address]- Care Team Providers Care Kiln Burner Helper Name Role Phone Sharon Vides MD Primary Care Physician [place] [facility] [place]17[place] - 07/29/19 [facility] [address] [place] [address]- [facility] Discharge Disposition: A-D/C Home Attending Physician: Samira STARK(Hem/Onc), Christo Giles Admitting Physician: Samira STARK(Hem/Onc), Christo Giles Referring Physician: Sharon Vides MD Allergies, Adverse [...] By Mouth, Daily, Dr. primo Renee at [facility], # 30 tablet, 0 Refills, Maintenance, 01/26/18 [...] [Reference Range]: 1 2 Height 160 cm (05/29/19 2:33 PM) 160 cm (04/22/19 10:58 AM) Weight 61.7 kg (05/29/19 2:33 PM) 60.1 kg (04/22/19 10:58 AM) Pulse Rate [55-90 bpm] 80 bpm (05/29/19 2:33 PM) 84 bpm (04/22/19 10:58 AM) Body Mass Index [18.5-24.99] 24.1 (05/29/19 2:33 PM) 23.48 (04/22/19 10:58 AM) Blood Pressure [90-138/55-84 mm Hg] 113/ 63mm Hg (05/29/19 2:33 PM) 119/59mm Hg (04/22/19 10:58 AM) Temperature [96.8-100.4 DegF] 97.8 DegF (05/29/19 2:33 PM) 98.6 DegF (04/22/19 10:58 AM) Blood pressure sites Arm, left (05/29/19 2:33 PM) Arm, left (04/22/19 10:58 AM) Temperature Route Temporal (05/29/19 2:33 PM) Temporal (04/22/19 10:58 AM) Dry Weight 61.7 kg (05/29/19 2:33 PM) 60.1 kg (04/22/19 10:58 AM) Weight Obtained Via Standing scale (05/29/19 2:33 PM) Standing scale (04/22/19 10:58 AM) Dry Weight Obtained Via Standing scale (05/29/19 2:33 PM) Standing scale (04/22/19 10:58 AM) Social History Social History Type Response Smoking Status Never smoker; Tobacc o user in household: No entered on: 04/05/17 Sex Female
--- OUTSIDE RECORDS SUMMARY | 2023-10-14 17:08 | XMS_ITS | Continuity of Care Document ---
Author Organization [facility] Address [address] [place] [address]- Care Team Providers Care Groover Operator Name Role Phone Caitlyn Bowie MD Primary Care Physician Encounter [facility] [place] Date(s): 05/13/22 - 06/22/[address] [address] Attending Physician: Not on Staff, Attending MD Referring Physician: Not on Staff, Referring [...] 0 Refills, Maintenance, 05/19/22 11:45:00 EST, [facility], Partial fill upon patient request [...] Physician Stop, 09/30/21 13:21:00 EDT, [facility], 160, cm, 09/24/21 16:15:00 EDT, [...] Care Team Personnel Name: Val Wynne Position: [facility] Onco RN Member Role: Primary Care Nurse Name: Karen Pittman RN Position: [facility] RN Member Role: Primary Care Nurse Name: Shilpi Mattson Position: Reference Physician Member Role: Primary Care Nurse Address: Address: [address] [place] [address] [address] [place] [address]- [place] Name: Toyin Doherty RN Position: [facility] RN Member Role: Primary Care Nurse Name: Eben Hernandez NP Position: [facility] Associate Professional Member Role: Lifetime Consulting Provider Address: Address: [address] [place] [address]- [place] Name: Alejandrina Turner RN Position: [facility] RN Member Role: Primary Care Nurse Name: Zoraida Felix RN Position: [facility] RN Member Role: Primary Care Nurse Name: Daphne Hooker RN Position: [facility] RN Member Role: Primary Care Nurse Name: Nasima Gonzalez RN Position: [facility] RN Supv Member Role: Primary Care Nurse Name: Caitlyn Bowie MD Position: [facility] Primary Care Physician Member Role: PCP Address: Address: [address] [place] [address]- [place] Name: Sheeba García Position: [facility] RN Member Role: Primary Care Nurse Name: Kiki Abdi RN Position: [facility] RN Member Role: Primary Care Nurse Name: Marry Reza Position: S RN Member Role: Primary Care Nurse Name: Veronica Hurst MA Position: [facility] PCO RN Member Role: Lifetime Consulting Physician Name: Maddie Herrera RN Position: [facility] RN Member Role: Primary Care Nurse Name: Raegan Baptiste RN Position: [facility] RN Member Role: Primary Care Nurse Name: Svitlana Marcum RN Position: [facility] AMB Nurse Member Role: Primary Care Nurse Name: She Pool Position: [facility] RN Member Role: Primary Care Nurse Name: Kaila Latham RN Position: [facility] RN Member Role: Primary Care Nurse Name: Julio C Bahena Position: [facility] RN Member Role: Primary Care Nurse Name: Nasima Heredia RN Position: [facility] RN Member Role: Primary Care Nurse Name: Katherine Nixon PharmD Position: [facility] Associate Professional Member Role: Lifetime Consulting Provider Address: Address: [address] [place] [id number] Name: Daphne Barton RN Position: [facility] RN Member Role: Primary Care Nurse Name: Katherine Long RN Position: [facility] RN Member Role: Primary Care Nurse Name: Norma Serrano RN Position: [facility] RN Member Role: Primary Care Nurse Name: Aurea Kelly RN Position: [facility] RN Member Role: Primary Care Nurse Name: Seven Kelly RN Position: [facility] RN Member Role: Primary Care Nurse Name: Fani Perez RN Position: [facility] RN Member Role: Primary Care Nurse Name: Emely Her Position: [facility] RN Member Role: Primary Care Nurse Name: Yudith Rothman RN Position: [facility] RN Member Role: Primary Care Nurse Name: Parris Zuluaga RN Position: [facility] RN Member Role: Primary Care Nurse Care Team Related Persons Name: ZENIADA FLORES Address: [place] [address] Name: TIA RIVERS Address: home [address] [place] [address] Name: JOHANN RETANA Address: home [place], [place]
--- OUTSIDE RECORDS SUMMARY | 2023-10-14 17:09 | XMS_ITS | Continuity of Care Document ---
Author Organization [facility] Address [address] [place] [address]- Care Team Providers Care Director Of Entertainment Name Role Phone Caitlyn Bowie MD Primary Care Physician Encounter [facility] Date(s): 01/11/23 - 02/10/23 [facility] [address] [place], [place] [address] Allergies, Adverse Reactions, Alerts Substance Reaction Severity Status ciprofloxacin Active erythromycin Active penicillin 1 Active vancomycin Active barium sulfate Active sulfa drugs Active iodinated radiocontrast dyes Active gentamicin Active busPIRone Feeling of throat ti ghtness Headache Dizziness Active ipratropium Active morphine Active Gastrografin Active Levaquin Avocado Active Avelox Active Voltaren Active Zithromax Active Flagyl Active [...] Care Nurse Name: Karen Pittman RN Position: [facility] RN Member Role: Primary Care Nurse Name: Shilpi Mattson Position: Reference Physician Member Role: Primary Care Nurse Address: Address: [address] [place] [address]- Name: Toyin Doherty RN Position: [facility] RN Member Role: Primary Care Nurse Name: Eben Hernandez NP Position: [facility] Associate Professional Member Role: Lifetime Consulting Provider Address: Address: [address] [place] [address]- [place] Name: Alejandrina Turner RN Position: [facility] RN Member Role: Primary Care Nurse Name: Zoraida Felix RN Position: [facility] RN Member Role: Primary Care Nurse Name: Daphne Hooker RN Position: [facility] RN Member Role: Primary Care Nurse Name: Nasima Gonzalez RN Position: [facility] RN Suprodney Member Role: Primary Care Nurse Name: Caitlyn Bowie MD Position: [facility] Physician - Primary Care Member Role: PCP Address: Address: [address] [place] [address]- [place] Name: Kiki Abdi RN Position: [facility] RN Member Role: Primary Care Nurse Name: Marry Reza Position: [facility] RN Member Role: Primary Care Nurse Name: Veronica Hurst [place] Position: [facility] SALLY JORGENSEN Member Role: Lifetime Consulting Physician Name: Maddie Herrera RN Position: [facility] AMB Nurse Member Role: Primary Care Nurse Name: Raegan Baptiste RN Position: [facility] RN Member Role: Primary Care Nurse Name: Svitlana Marcum RN Position: [facility] AMB Nurse Member Role: Primary Care Nurse Name: She Pool Position: [facility] RN Member Role: Primary Care Nurse Name: Kaila Latham RN Position: [facility] RN Member Role: Primary Care Nurse Name: Julio C Bahena Position: [facility] RN Member Role: Primary Care Nurse Name: Nasima Heredia RN Position: [facility] RN Member Role: Primary Care Nurse Name: Katherine Nixon PharmD Position: [facility] Associate Professional Member Role: Lifetime Consulting Provider Address: Address: [address] [place] [address] Name: Daphne Barton RN Position[facility] [...] Related Persons Name: ZENAIDA FLORES Address: [place] [address] Name: TIA RIVERS Address: [place] [address] Name: JOHANN RETANA Address: [place] [address]
--- OUTSIDE RECORDS SUMMARY | 2023-10-14 17:09 | XMS_ITS | Continuity of Care Document ---
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 Name Role Phone Caitlyn Bowie MD Primary Care Physician [phone] Encounter [facility] Date(s): 06/22/23 - 06/29/23 [facility] [address] [place], [place] [address] Attending Physician: Hermila Osorio NP Allergies, Adverse Reactions, Alerts Substance Reaction Severity Status ciprofloxacin Active clindamycin throat tightening Active penicillin 1 Active vancomycin Active barium sulfate Active sulfa drugs Active iodinated radiocontrast dyes Active gentamicin Active erythromycin Active busPIRone Feeling of throat ti ghtness Headache Dizziness Active ipratropium Active morphine Active Voltaren Active Biaxin Active Gastrografin Active [...] oldest [Reference Range]: 1 Height 159 cm (06/22/23 10:55 AM) Oxygen Saturation [94-100 %] 99 % (06/22/23 10:55 AM) Pulse Rate [55-90 bpm] 72 bpm (06/22/23 10:55 AM) Blood Pressure [90-138/55-84 mm Hg] 124/ 77mm Hg (06/22/23 10:55 AM) Liters per Minute 2 L/min (06/22/23 10:55 AM) Mode of Delivery (Oxygen) Nasal cannula (06/22/23 10:55 AM) Blood pressure sites Arm, left (06/22/23 10:55 AM) Social History Social History Type Response Smoking Status Never smoker; Tobacc o user in household: No entered on: 04/05/17 Sex Note * Becky Álvarez: PERFORM, SIGN, VERIFY Event Display: Patient Education/Instruction Authored Date: [id number] [employer] *[facility] Clinical Summary Name CINDA WATSON Age 78 Years 1945 PCP Azeb STARK, Caitlyn Thompson PCP Visit Date 06/22/2023 10:26:00 Additional Instructions: Scheduled Appointments?? Future Appointments ?*No??[facility]ult[facility]Ped ?[address]??[place],??[place],??[address] ?Phone:??--?Fax:??-- ?Appt. Date:??06/29/2023?11:00 AM ?Scheduled Provider:??Azeb STARK , Caitlyn Thompson ?*[facility]Adult ?[address]??[place],??[place],??[address] ?Phone:??--?Fax:??-- ?Appt. Date:??06/30/2023?9:00 AM ?Scheduled Provider:??Donya HAJI, Fei Follow-Up Instructions ?? Diagnosis Medications: Please continue [...] orders Vital Signs Height 159 cm Weight BMI Blood Pressure 124 mm Hg/77 mm Hg Temperature Pulse Rate 72 bpm Respiratory Rate 02 Sat Mode of Delivery 99 %/Nasal cannula You can now view a summary of your hospital visit from the comfort of your home through a free online portal called [employer]. [employer] is a website that allows you to securely view your medical information including discharge summary, medications and follow-up visits. ??You can alsosend a secure electronic message to your doctor???s office to request appointments, renew medications or just ask a question. You can enroll at [email or web address] or register during your next office visit. [...] [facility] provider by calling [facility] [employer] [facility] at [phone]. [facility], in keeping with [facility] guidance, no longer requires face masks for [...] Role: Primary Care Nurse Address: Address: [address] [place] [address]- [place] Name: Toyin Doherty RN Position: S RN Member Role: Primary Care Nurse Name: Eben Hernandez NP Position: [facility] Associate Professional Member Role: Lifetime Consulting Provider Address: Address: [address] [place] [address]- [place] Name: Alejandrina Turner RN Position: [facility] RN Member Role: Primary Care Nurse Name: Zoraida Felix RN Position: [facility] ED RN W/OE and Tasks Member Role: Primary Care Nurse Name: Daphne Hooker RN Position: [facility] RN Member Role: Primary Care Nurse Name: Nasima Gonzalez RN Position: [facility] RN Supv Member Role: Primary Care Nurse Name: Caitlyn Bowie MD Position: [facility] Physician - Primary Care Member Role: PCP Address: Address: [address] [place] [address]- [place] Name: Kiki Abdi RN Position: [facility] RN Member Role: Primary Care Nurse Name: Marry Reza Position: S RN Member Role: Primary Care Nurse Name: Veronica Hurst [place] Position: [facility] SALLY JORGENSEN Member Role: Lifetime Consulting Physician Name: Yudith Ruiz RN Position: [facility] Onco RN Member Role: Primary Care Nurse Name: Maddie Herrera RN Position: [facility] AMB Nurse Member Role: Primary Care Nurse Name: Raegan Bpatiste RN Position: S RN Member Role: Primary Care Nurse Name: She Pool Position: [facility] RN Member Role: Primary Care Nurse Name: Kaila Latham RN Position: [facility] ED RN W/OE and Tasks Member Role: Primary Care Nurse Name: Julio C Bahena Position: [facility] RN Member Role: Primary Care Nurse Name: Nasima Heredia RN Position: S RN Member Role: Primary Care Nurse Name: Katherine Nixon PharmD Position: [facility] Associate Professional Member Role: Lifetime Consulting Provider Address: Address: [address] [place] [address] Name: Daphne Barton RN [facility] [...] Care Nurse Name: Pallavi Wylie LPN Position: [facility] RN Member Role: Primary Care Nurse Name: Parris Zuluaga RN Position: [facility] RN Member Role: Primary Care Nurse Care Team Related Persons Name: ZENAIDA FLORES Address: [place] [address] Name: TIA RIVERS Address: [place] [address] Name: JOHANN RETANA Address: home [place], [place]
--- OUTSIDE RECORDS SUMMARY | 2023-10-14 17:09 | XMS_ITS | Continuity of Care Document ---
Author Organization [facility] Address [address] [place] [address]- Care Team Providers Care Pulp Mixer Name Role Phone Caitlyn Bowie MD Primary Care Physician [phone] Encounter [facility] Date(s): 06/20/23 - 07/20/23 [facility] [address] [place], [place] [address] Allergies, Adverse Reactions, Alerts Substance [...] Care Team Personnel Name: Val Wynne Position: [facility] Onco RN Member Role: Primary Care Nurse Name: Karen Pittman RN Position: [facility] RN Member Role: Primary Care Nurse Name: Shilpi Mattson Position: Reference Physician Member Role: Primary Care Nurse Address: Address: [address] [place] [address] Name: Toyin Doherty RN Position: [facility] RN Member Role: Primary Care Nurse Name: Eben Hernandez NP Position: [facility] Associate Professional Member Role: Lifetime Consulting Provider Address: Address: [address] [place] [address] Name: Alejandrina Turner RN Position: [facility] RN Member Role: Primary Care Nurse Name: Zoraida Felix RN Position: [facility] ED RN W/OE and Tasks Member Role: Primary Care Nurse Name: Daphne Hooker RN Position: [facility] RN Member Role: Primary Care Nurse Name: Nasima Gonzalez RN Position: [facility] RN Supv Member Role: Primary Care Nurse Name: Caitlyn Bowie MD Position: [facility] Physician - Primary Care Member Role: PCP Address: Address: [address] [place] [address]- Name: Kiki Abdi RN Position: [facility] RN Member Role: Primary Care Nurse Name: Marry Reza Position: S RN Member Role: Primary Care Nurse Name: Veronica Hurst MA Position: [facility] SALLY MA Member Role: Lifetime Consulting Physician Name: Maddie Herrera RN Position: [facility] AMB Nurse Member Role: Primary Care Nurse Name: Yudith Herrera RN Position: [facility] Onco RN Member Role: Primary Care Nurse Name: Raegan Baptiste RN Position: [facility] RN Member Role: Primary Care Nurse Name: She Pool Position: S RN Member Role: Primary Care Nurse Name: Kaila Latham RN Position: [facility] RN Member Role: Primary Care Nurse Name: Julio C Bahena Position: S RN Member Role: Primary Care Nurse Name: Naisma Heredia RN Position: [facility] RN Member Role: Primary Care Nurse Name: Katherine Nixon PharmD Position: [facility] Associate Professional Member Role: Lifetime Consulting Provider Address: Address: [address] [place] [address]- Name: Daphne Barton RN Position: [facility] RN Member Role: Primary Care Nurse Name: Katherine Long RN Position: [facility] RN Member Role: Primary Care Nurse Name: Norma Serrano RN Position: [facility] RN Member Role: Primary Care Nurse Name: Fani Perez RN Position: S RN Member Role: Primary Care Nurse Name: Hattie Brewster RN Position: [facility] RN Member Role: Primary Care Nurse Name: Kelly Hernandez RN Position: [facility] RN Member Role: Primary Care Nurse Name: Pallavi Wylie LPN Position: [facility] RN Member Role: Primary Care Nurse Name: Parris Zuluaga RN Position: [facility] RN Member Role: Primary Care Nurse Care Team Related Persons Name: ZENAIDA FLORES Address: [place], [place] Name: TIA RIVERS Address: [place] [address] Name: JOHANN RETANA Address: [place], [place]
[2023-10-14 17:37] LABS: MANUAL DIFF FLAG NO
[2023-10-14 17:39] LABS: Basophils Absolute Auto 0.1 X10*3/uL (0.0-0.2); Basophils Percent Auto 0.5 % (0-2); Eosinophils Absolute Auto 0.1 X10*3/uL (0.0-0.4); Eosinophils Percent Auto 0.8 % (0-4); Hematocrit 38.3 % (37.0-47.0); Hemoglobin 12.4 g/dl (12.0-16.0); Imm Gran Abs Auto 0.16 X10*3/uL (0.00-0.03); Imm Gran Pct Auto 1.4 % (0.0-0.4); Lymphocytes Percent Auto 8.6 % (20-40); Mean Corpuscular HGB Conc 32.4 g/dl (31.0-35.0); Mean Corpuscular Volume 101.9 fL (80.0-98.0); Mean Platelet Volume 10.9 fL (9.4-12.3); Monocytes Percent Auto 8.4 % (2-11); Neutrophils Absolute Auto 9.4 x10*3/uL (2.0-8.3); Neutrophils Percent Auto 80.3 % (45-73); Platelet Count 209 X10*3/uL (160-400); Red Blood Count 3.76 X10*6/uL (4.20-5.50); Red Cell Distribution Width 13.9 % (11.0-16.0); White Blood Count 11.7 X10*3/uL (4.8-10.8)
[2023-10-14 17:48] LABS: INTERNATIONAL NORM RATIO 1.8 (0.9-1.1); Prothrombin Time 21.7 SEC (11.1-13.3)
[2023-10-14 17:52] LABS: Influenza A PCR NEGATIVE (Negative); Influenza B PCR NEGATIVE (Negative); Resp Syncy Virus RNA Qual PCR NEGATIVE (Negative); SARS COV2 PCR INHOUSE NEGATIVE (Negative)
[2023-10-14 18:03] LABS: Troponin-I High Sensitivity 9.4 ng/L (<3.5-17.0)
[2023-10-14 18:06] LABS: Alanine Aminotransferase 28 U/L (0-31); Albumin Level 3.7 g/dL (3.5-5.0); Alkaline Phosphatase 67 U/L (39-117); Anion Gap 13 (12-20); Aspartate Amino Transferase 36 U/L (5-31); Bilirubin Direct 0.2 mg/dL (0.0-0.5); Bilirubin Total 0.5 mg/dL (0.0-1.0); Blood Urea Nitrogen 22 mg/dL (9-16); Carbon Dioxide 28 mmol/L (22-29); Chloride 100 mmol/L (96-108); Creatinine Clr Calc Pharmacy 47.2; Estimated Glomerular Filt Rate > 60; Glucose Random 106 mg/dL (60-115); Potassium 4.1 mmol/L (3.3-5.1); Sodium 137 mmol/L (135-145); Total Protein 7.2 g/dL (6.5-8.0)
[2023-10-14 18:08] VITALS: BP 131/69; PULSE 82; RESP 16; TEMP 36.8; O2SAT 99
[2023-10-14 18:21] LABS: B Type Natriuretic Peptide 432 pg/mL (<100)
[2023-10-14 18:35] LABS: Appearance Urine Clear; Color Urine Yellow; Glucose Urine UA Negative (Negative); Leukocyte Esterase Urine Negative (Negative); Nitrite Urine Negative (Negative); Urine Blood Negative (Negative); Urine Ketones Negative (Negative); Urine Protein Negative (Neg-Trace)
[2023-10-14 18:36] LABS: Bacteria Urine None Seen (None Seen); Hyaline Casts Urine 0-2 /LPF (0-2); RBC Urine 0-2 /HPF (0-2); Squamous Epithelial Cell Urine 0-2 /HPF (0-2); WBC Urine 0-5 /HPF (0-5)
[2023-10-14 20:18] VITALS: BP 140/80; PULSE 82; RESP 14; TEMP 36.9; O2SAT 100
[2023-10-14 22:42] VITALS: BP 153/89; PULSE 87; RESP 18; TEMP 36.9; O2SAT 99
[2023-10-14] MEDS: diazePAM 2 MG TABLET PO (23:07)
[2023-10-15 00:27] VITALS: BP 151/86; PULSE 89; RESP 16; TEMP 36.8; O2SAT 98
== END 2023-10-15 00:28 | disposition home or self-care (01) ==
PROVIDERS: Emergency Provider Emergency Medicine Emergency Medical Services; PCP Internal Medicine
DX: R60.0 Localized edema (principal); R07.89 Other chest pain; R05.9 Cough, unspecified; R06.02 Shortness of breath; Z79.899 Other long term (current) drug therapy; Z79.01 Long term (current) use of anticoagulants; Z03.818 Encounter for observation for suspected exposure to other biological agents ruled out
CPT/HCPCS: 0241U; 36415; 71045; 80048; 80076; 81001; 83880; 84484; 85025; 85610; 93005; 93970; 99284

== ENCOUNTER → 2023-10-14 16:21 | Outpatient (BNV) | payer MEDICARE, SELFPAY | PROVIDERS: Emergency Provider Emergency Medicine Emergency Medical Services; PCP Internal Medicine; Visit Provider Internal Medicine Cardiovascular Disease | DX: I45.10 Unspecified right bundle-branch block (principal); I44.4 Left anterior fascicular block; I45.2 Bifascicular block | CPT/HCPCS: 93010 ==

== ENCOUNTER 2023-10-17 14:20 | Outpatient (AMB) | payer MEDICARE, SELFPAY ==
[2023-10-17 14:32] VITALS: BP 116/60; PULSE 78; BMI 23.8
--- NOTE | 2023-10-17 14:32 | MHC.OFFVIS ---
Intake Vital Signs 10/17/23 14:32 Height 5 ft 2 in Weight 130 lb 1.164 oz BMI 23.8 BP 116/60 Blood Pressure Location Lt brachial Position Sitting Pulse 78 Intake Visit Reasons: fu edema/ [facility] ed Intake Note: FOLLOW UP PT FEELS TIRED AND SOB Allergies avocado [AVOCADO] Allergy (Mild, Verified 10/14/23 16:09) ITCHY THROAT, RASH azithromycin [AZITHROMYCIN] Allergy (Mild, Verified 10/12/23 10:43) ITCHY THROAT, RASH barium iodide [BARIUM IODIDE] Allergy (Mild, Verified 10/12/23 10:43) ITCHY THROAT, RASH barium sulfate Allergy (Mild, Verified 10/12/23 10:43) Itch bee pollen [BEE STINGS] Allergy (Mild, Verified 10/12/23 10:43) ITCHY THROAT, RASH ciprofloxacin [From CIPRO] Allergy (Mild, Verified 10/12/23 10:43) ITCHY THROAT, RASH clarithromycin [From BIAXIN] Allergy (Mild, Verified 10/12/23 10:43) ITCHY THROAT, RASH diatrizoate meglumine [From GASTROGRAFIN] Allergy (Mild, Verified 10/12/23 10:43) ITCHY THROAT, RASH diatrizoate sodium [From GASTROGRAFIN] Allergy (Mild, Verified 10/12/23 10:43) ITCHY THROAT, RASH diclofenac [From VOLTAREN] Allergy (Mild, Verified 10/12/23 10:43) ITCHY THROAT, RASH erythromycin base [ERYTHROMYCIN BASE] Allergy (Mild, Verified 10/12/23 10:43) ITCHY THROAT, RASH gentamicin [GENTAMICIN] Allergy (Mild, Verified 10/12/23 10:43) ITCHY THROAT, RASH Iodinated Contrast Media [IVP DYE] Allergy (Mild, Verified 10/12/23 10:43) ITCHY THROAT, RASH levofloxacin [From LEVAQUIN] Allergy (Mild, Verified 10/12/23 10:43) ITCHY THROAT, RASH metronidazole [From FLAGYL] Allergy (Mild, Verified 10/12/23 10:43) ITCHY THROAT, RASH moxifloxacin [From AVELOX] Allergy (Mild, Verified 10/12/23 10:43) ITCHY THROAT, RASH Penicillins [PENICILLINS] Allergy (Mild, Verified 10/12/23 10:43) ITCHY THROAT, RASH shrimp [SHRIMP] Allergy (Mild, Verified 10/12/23 10:43) ITCHY THROAT, RASH Sulfa (Sulfonamide Antibiotics) [SULFA (SULFONAMIDE ANTIBIOTICS)] Allergy (Mild, Verified 10/12/23 10:43) ITCHY THROAT, RASH vancomycin [VANCOMYCIN] Allergy (Mild, Verified 10/12/23 10:43) ITCHY THROAT, RASH clindamycin Adverse Reaction (Intermediate, Verified 10/12/23 10:43) Unknown Medication List - Last Reconciled 10/17/23 by Luis Eduardo Cadet MD acetaminophen-codeine 300-15 mg 1 tab PO Q8H PRN 10 days Advair HFA 230-21 mcg/actuation (fluticasone propion-salmeterol) 2 puffs inhalation BID 90 days NS albuterol sulfate 2.5 mg (3 mL) inhalation Q6H PRN 30 days CPAP (CPAP Machine/Device) As directed diazepam 5 mg PO BID epinephrine IM furosemide 40 mg PO BID 90 days levocetirizine 5 mg PO DAILY 90 days levothyroxine (Synthroid) 25 mcg PO MOTUWETHFR@0600 meclizine 25 mg PO TID PRN 14 days metoprolol succinate ER (Toprol XL) 50 mg PO BID montelukast 10 mg PO DAILY nebulizers As directed Oxygen Home Use As directed potassium chloride 20 mEq PO DAILY prednisone 2.5 mg PO Q OTHER DAY rosuvastatin 10 mg PO Q OTHER DAY trazodone 100 mg (2 x 50 mg) PO BEDTIME triamcinolone acetonide 0.1% topical triamcinolone acetonide 0.1% 1 appl topical BID-TID warfarin (Jantoven) mg PO HPI HPI Comments History of Present Illness Details 78-year-old female complex medical issues presenting follow-up. She recently was diagnosed with severe mitral valve regurgitation was felt not to be a good surgical candidate and underwent MitraClip. She had improvement in symptoms afterwards. She has advanced lung disease due to previous lung resection as well as radiation to the lungs. She also had pulmonary embolism in the past. She has pulmonary hypertension. She is presenting now because she was becoming more short of breath and had lower extremity edema. On her own she crease her furosemide to 40 mg over the last week or so. She said her breathing did not change with that strategy. It appears early November she was in the emergency department with shortness of breath and was diagnosed with left lower lobe pneumonia. She had some sharp left-sided chest pains which were pleuritic in nature likely due to underlying pneumonia. She was given antibiotics which she has completed. She is saying that her oxygen saturations the low when she is laying down. She does not use oxygen frequently. Specifically outside her home she does not use oxygen. She has tachycardia when she is ambulating which she has noticed but does not significantly get any palpitations. She continues to get short of breath with activities. She saw a pulmonary hypertension specialist and by her description she was told that her pulmonary hypertension was mostly due to mitral regurgitation. She is following with pulmonology at [place]. 12/29/22: Was brought in for urgent follow-up. She called and was complaining of palpitations and fast heart rates as high as 120 beats per minute and was also complaining of shortness of breath. It appears she was referred for echocardiography by pulmonology and this showed that her right ventricle is [id number] dilated, right atrium was severely dilated with small pericardial effusion as before but small to moderate pleural effusion was also noted. Previous iatrogenic ASD from transseptal puncture was noted as well mitral stenosis due to mitral clip with mean gradient of 8-9 mm Hg. Previously this was 7 mm Hg. The patient was previously advised to use oxygen when she is ambulating. Apparently she was out with her friends and while walking she was not using oxygen and started feeling shortness of breath and checked her pulse and it was 120 beats per minute. She is saying when she is using oxygen she does not get similar symptoms and has not had any tachycardia while using oxygen. She has also gained few lb over the last few days. She was sent for chest x-ray which is showing left basal pleural effusion as seen on the echocardiography also. She is taking Lasix 40 mg once a day. She is on metoprolol succinate 25 mg twice a day. 01/11/23: She returns for follow-up. She had Holter monitor on her and the day she came to return it she had significant palpitations and shortness of breath while walking to the Cardiology Department. She said she was not rushing and was walking at a slow pace. She said these symptoms improved afterwards and she did not have any for the palpitations walking back to her car. She was using oxygen. She is wearing oxygen 30/01 but is saying that she feels lousy and has not felt any difference in her dyspnea or palpitations. She has been using 40 mg twice a day of Lasix. Her blood pressure control is good. Previously we did not increase her Toprol XL despite seeing some degree of mitral stenosis on her echocardiogram which is iatrogenic due to MitraClip. She has been more sedentary and is quite frail and deconditioned. She is tearful that she is unable to do any of the activities she was able to do before. 02/13/23: She returns for follow-up. She was previously on 40 mg p.o. b.i.d. Lasix. She had called our office for lower extremity edema and Lasix dose was increased to 80 mg twice a day. Subsequent to that she called or office that she is dehydrated and was advised to take 80 mg in the morning and 40 in the afternoon. She had blood workup which showed hypokalemia and she was started on potassium supplements. She continues to get fatigue and SOB. She is using oxygen when sleeping and with ambulation. Continues to get tachycardia with ambulation. 04/26/2023: She returns for follow-up. She called us yesterday because she gained 3 lb over 3 days. She was taking 40 mg p.o. b.i.d. Lasix. She was advised to take an extra dose of Lasix yesterday and increase the Lasix to 80 mg in the morning today. She said she checked her weight today and was back at 128 lb which was her baseline. She is saying she has been short of breath and fatigue. Also she had upper back pain which moved to her chest early April and she went to [facility] where she had a chest CTA performed which did not show any evidence of dissection or pulmonary embolism. Pulmonary arteries were noticed to be dilated consistent with her known history of pulmonary hypertension. 08/14/2023: She returns for follow-up. She had an episode of diverticulitis which was treated in the hospital. She said she went home and was getting some shortness of breath and wheezing and was advised to go back to the hospital and was treated for pneumonia also. She continues to have symptoms like before including chest tightness, fatigue and inability to exercise. She is on oxygen mostly at times. She complains of some edema in the lower extremity but nothing significant is noted on examination. 09/04/2023: She returns for urgent follow-up. She is complaining of shortness of breath and palpitations. She said she was tachycardic and checked her heart rate and was 100 beats per minute. She has been using oxygen most of the time. Sometimes she takes it off and if the oxygen level is dropping she wears oxygen back. During activities she has been using oxygen. Continues to get off and on chest discomfort. She had an echocardiogram done at [facility] with transmitral gradient was 7 mm Hg at a heart rate of 76 beats per minute. 10/17/23: She is here for follow-up after recent ER visit. Apparently was getting lower extremity edema and went to the emergency department where she was told that she may have congestive heart failure. No significant changes in medications were made. Her BNP was at the same level that it has been previously. She called our office and was concerned and we decided to bring her for office visit. She is saying that she was short of breath and had lower extremity edema and went to the emergency department and apparently after testing no changes in medications were made. She clearly has some peripheral edema. She also is complaining of some shortness of breath with activities. [facility]LY [facility] Medical History DVT (deep venous thrombosis) COPD (chronic obstructive pulmonary disease) Compression fracture of body of thoracic vertebra ASD (atrial septal defect) Pleuritic chest pain History of COVID-19 Chronic anticoagulation Hypothyroidism GERD (gastroesophageal reflux disease) Hyperlipidemia Hypertension Factor 5 Leiden mutation, heterozygous History of non-ST elevation myocardial infarction (NSTEMI) Hypoxia Anxiety PTSD (post-traumatic stress disorder) Hemoptysis Dyspnea Tracheobronchitis CLARA positive Diverticulitis Allergic bronchitis (HFpEF) heart failure with preserved ejection fraction Subarachnoid bleed Insomnia Anti-phospholipid antibody syndrome Hypogammaglobulinemia Chronic respiratory failure Arterial insufficiency of lower extremity Complex regional pain syndrome i of right lower limb Post herpetic neuralgia Pulmonary hypertension Pericardial effusion Pulmonary emboli Pleural effusion Radiation fibrosis of lung Pneumonitis Pulmonary nodules KANDY treated with BiPAP Lung cancer Surgical History History of colonoscopy History of lung surgery History of tonsillectomy History of hysterectomy S/P mitral valve clip implantation History of cardiac cath Family History Sister No problems noted. Mother Cardiovascular disease Daughter Tachycardia Other KANDY (obstructive sleep apnea) Social History Household Members: None Housing: House Do you presently have visiting nurse or other home services: Yes Unable to assess alcohol history related to: Unknown Alcohol intake: former Comment: stand by assist with ambulation Patient Tobacco Use Status: Never used Tobacco Second Hand Smoke Exposure: No Advance Directives Date on File: 06/15/22 service: No Current occupational status: retired Review of Systems Const Denies weakness ENT Denies dizziness Card Denies chest pain, Denies chest pain with activity, Denies syncope, Denies rapid heart rate, Denies pedal edema, Denies edema, Denies leg edema, Denies lightheadedness, Denies palpitations, Reports dyspnea, Denies dyspnea on exertion and Denies orthopnea Resp Denies cough, Reports dyspnea and Denies dyspnea on exertion GI Denies hematochezia and Denies change in stool character Musc Denies abnormal gait, Denies muscle cramps, Denies muscle weakness, Denies numbness, Denies radiating pain into limb and Denies tingling Neuro Denies abnormal gait, Denies dizziness, Denies syncope, Denies numbness, Denies tingling and Denies weakness Endo Denies palpitations Physical Exam Vital Signs: Last Vital Signs Pulse 78 10/17/23 14:32 BP 116/60 10/17/23 14:32 BMI result Body Mass Index 23.8 GENERAL APPEARANCE: In no distress. NECK/THYROID: no carotid bruit, + JVD. SKIN: no suspicious lesions, warm and dry. HEART: no murmurs, regular rate and rhythm, S1, S2 normal. LUNGS: clear to auscultation bilaterally. ABDOMEN: normal, bowel sounds present, soft, nontender, nondistended. EXTREMITIES: no clubbing, cyanosis. + edema. PERIPHERAL PULSES: equal. NEUROLOGIC: nonfocal, alert and oriented. Assessment & Plan Assessment & Plan (1) (HFpEF) heart failure with preserved ejection fraction: Code(s): I50.30 - Unspecified diastolic (congestive) heart failure Qualifiers: Heart failure chronicity: chronic Qualified Code(s): I50.32 - Chronic diastolic (congestive) heart failure Plan 78-year-old female who is here for follow-up. She is multiple comorbidities and complex issues. Recent ER visit for oxygen edema and shortness of breath. No medication changes were made. Clinically she appears to be volume overloaded with JVD and peripheral edema. I have advised her to increase the Lasix to 80 mg in the morning and 40 in the afternoon. We will repeat blood workup in few weeks. We will check echocardiogram to reassess RV function and PA pressures given signs of right heart failure. Follow-up with us in 6 weeks. Thank you for allowing me to participate in the care of your patient. Please feel free to contact me if you have any questions. Orders: Orders Basic Metabolic Panel Today I50.32 - Chronic diastolic (congestive) heart failure CA echo transthoracic complete Today I50.32 - Chronic diastolic (congestive) heart failure B Type Natriuretic Peptide Today I50.32 - Chronic diastolic (congestive) heart failure Medications: Changed From furosemide Current dose is 40mg twice a day. 40 mg PO BID 90 days 180 tabs 3RF To furosemide 40 mg orally Two tablets in the morning 1 tablet in the afternoon 90 days 180 tabs 3RF Coding Level of Care Code Est Pt Level 5 (47743) Diagnoses Chronic heart failure with preserved ejection fraction I50.32 Heart failure chronicity: chronic
== END 2023-10-17 15:11 | disposition home or self-care (01) ==
PROVIDERS: PCP Internal Medicine; Visit Provider Internal Medicine Cardiovascular Disease
DX: I50.32 Chronic diastolic (congestive) heart failure (principal); Z09 Encounter for follow-up examination after completed treatment for conditions other than malignant neoplasm
CPT/HCPCS: 99214

== ENCOUNTER → 2023-10-17 14:20 | Outpatient (BNVA) | payer MEDICARE, SELFPAY | PROVIDERS: PCP Internal Medicine; Visit Provider Internal Medicine Cardiovascular Disease | DX: I50.32 Chronic diastolic (congestive) heart failure (principal) | CPT/HCPCS: 99212 ==

== ENCOUNTER 2023-10-31 11:13 | Outpatient (REF) | payer MEDICARE, SELFPAY ==
--- NOTE | ~2023-10-31 | XR_ITS ---
EXAMINATION: XR CHEST CLINICAL INFORMATION: Tachycardia COMPARISON: None available. TECHNIQUE: 2 views of the chest were obtained. FINDINGS: Stable prominent cardiac silhouette, small pleural effusion and left hemithorax volume loss. Metallic device overlying the left heart border has appearance of Mitraclip, correlate with history. No vascular congestion or consolidations. XR/XR chest 2V IMPRESSION: Unchanged prominent cardiac silhouette, small pleural effusion and other the findings. No acute cardiopulmonary disease recognized.
--- NOTE | 2023-10-31 11:28 | ECG_ITS ---
Test Reason : copd Blood Pressure : / mmHG Vent. Rate : 088 BPM Atrial Rate : 088 BPM P-R Int : 168 ms QRS Dur : 134 ms QT Int : 408 ms P-R-T Axes : 078 -60 072 degrees QTc Int : 493 ms Normal sinus rhythm Possible Left atrial enlargement Right bundle branch block Left anterior fascicular block Bifascicular block Abnormal ECG When compared with ECG of 14-OCT-2023 16:55, Borderline criteria for Lateral infarct are no longer Present No significant change was found Referred By: Henry Kelly Electronically Signed By:INGRID TILLMAN MD
[2023-10-31 11:46] LABS: MANUAL DIFF FLAG NO
[2023-10-31 12:02] LABS: VBG Base Excess 14.6 mmol/L; VBG HCO3 41 mmol/L (22-26); VBG pCO2 58 mmHg; VBG pH 7.45 (7.32-7.43); VBG pO2 44 mmHg
[2023-10-31 12:03] LABS: Venous Blood Gas Refer to POC result
[2023-10-31 12:47] LABS: Basophils Absolute Auto 0.1 X10*3/uL (0.0-0.2); Basophils Percent Auto 0.6 % (0-2); Eosinophils Absolute Auto 0.1 X10*3/uL (0.0-0.4); Eosinophils Percent Auto 1.4 % (0-4); Hematocrit 39.5 % (37.0-47.0); Hemoglobin 12.8 g/dl (12.0-16.0); Imm Gran Abs Auto 0.12 X10*3/uL (0.00-0.03); Imm Gran Pct Auto 1.3 % (0.0-0.4); Lymphocytes Absolute Auto 1.3 X10*3/uL (1.2-4.9); Lymphocytes Percent Auto 13.9 % (20-40); Mean Corpuscular HGB Conc 32.4 g/dl (31.0-35.0); Mean Corpuscular Hemoglobin 32.6 pg (27.0-33.0); Mean Corpuscular Volume 100.5 fL (80.0-98.0); Mean Platelet Volume 11.1 fL (9.4-12.3); Monocytes Absolute Auto 1.1 X10*3/uL (0.1-1.2); Monocytes Percent Auto 11.6 % (2-11); Neutrophils Absolute Auto 6.7 x10*3/uL (2.0-8.3); Neutrophils Percent Auto 71.2 % (45-73); Platelet Count 240 X10*3/uL (160-400); Red Blood Count 3.93 X10*6/uL (4.20-5.50); Red Cell Distribution Width 13.3 % (11.0-16.0); White Blood Count 9.3 X10*3/uL (4.8-10.8)
[2023-10-31 13:01] LABS: Anion Gap 12 (12-20); Blood Urea Nitrogen 21 mg/dL (9-16); Calcium 10.6 mg/dL (8.4-10.2); Carbon Dioxide 35 mmol/L (22-29); Chloride 97 mmol/L (96-108); Estimated Glomerular Filt Rate > 60; Glucose Random 79 mg/dL (60-115); Potassium 3.1 mmol/L (3.3-5.1); Sodium 141 mmol/L (135-145)
[2023-10-31 13:07] LABS: Troponin-I High Sensitivity 10.2 ng/L (<3.5-17.0)
[2023-10-31 13:11] LABS: D Dimer High Sensitivity 415 NG/ML
[2023-10-31 13:29] LABS: Erythrocyte Sedimentation Rate 44 MM/HR (0-20)
== END 2023-10-31 11:14 | disposition home or self-care (01) ==
LOC: HO.XRAY 11:13
PROVIDERS: PCP Internal Medicine; Visit Provider Hospitalist
DX: J44.9 Chronic obstructive pulmonary disease, unspecified (principal); R00.0 Tachycardia, unspecified; R09.02 Hypoxemia
CPT/HCPCS: 36415; 71046; 80048; 82803; 84484; 85025; 85379; 85652; 93005

== ENCOUNTER → 2023-10-31 11:28 | Outpatient (BNV) | payer MEDICARE, SELFPAY | PROVIDERS: PCP Internal Medicine; Visit Provider Internal Medicine Cardiovascular Disease | DX: I45.2 Bifascicular block (principal) | CPT/HCPCS: 93010 ==

== ENCOUNTER → 2023-11-06 12:53 | Outpatient (REF) | payer MEDICARE, SELFPAY ==
--- NOTE | 2023-11-06 12:55 | CA_ITS ---
Transthoracic Echocardiogram Patient (Last, First, Middle): Jovana Malik J Gender: Female Date of : 1945 Age: 78 Procedure Date: 11/06/2023 Procedure Type: Transthoracic Echocardiogram Location: OP Height: 157.48 cm Weight: 58.51 kg BSA: 1.59 m2 Heart Rate: bpm BP: 117 / 60 mmHg Line Helper: Referring MD: Luis Eduardo Cadet MD Gym Instructor: Luis Eduardo Cadet MD Symptoms: I50.32 - Chronic diastolic (congestive) heart failure Study Quality: Good ECG Rhythm: Sinus Conclusions: - Normal left ventricular size and systolic function. There is mildly increased left ventricular wall thickness. The visually estimated ejection fraction is between 60-65%. - Elevated filling pressures. - Mildly increased right ventricular cavity size. There is normal right ventricular systolic function. - The left atrium is severely dilated. - s/p mitraclip procedure. - Mean gradient across the mitral valve 8 mm Hg at 88 beats/min. - Mild to moderate pulmonary hypertension is present. - There is a small pericardial effusion. There are no definitive echocardiographic findings of tamponade physiology. Findings Left Ventricle Normal left ventricular size and systolic function. There is mildly increased left ventricular wall thickness. The visually estimated ejection fraction is between 60-65%. There is no evidence of regional wall motion abnormalities. Abnormal diastolic function is noted. Spectral Doppler is indicative of an impaired relaxation filling pattern. Elevated filling pressures. Right Ventricle Mildly increased right ventricular cavity size. There is normal right ventricular systolic function. Atria The left atrium is severely dilated. Aortic Valve There is a normal trileaflet aortic valve. There is mild thickening of the aortic valve. There is no aortic valve stenosis. There is mild aortic valve regurgitation. Mitral Valve There is moderate mitral annular calcification. There is trace mitral valve regurgitation. s/p mitraclip procedure. Mean gradient across the mitral valve 8 mm Hg at 88 beats/min. Pulmonic Valve The pulmonic valve is normal. There is trace pulmonic valve regurgitation. Tricuspid Valve Normal tricuspid valve structure. There is moderate tricuspid valve regurgitation. Normal right atrial pressure. Mild to moderate pulmonary hypertension is present. Great Vessels All visible segments of the aorta are normal in size. Venous The inferior vena cava is normal in size and collapses greater than 50% with inspiration. Pericardium/Pleural There is a small pericardial effusion. There are no definitive echocardiographic findings of tamponade physiology. Prior Study Comparison No significant change compared to prior study dated: 12/28/2022. Measurements 2D Linear Measurements IVSd: 1.13 0.6-0.9/0.6-1.0 cm LVIDd: 3.74 3.9-5.3/4.2-5.9 cm LVIDd Index: 2.35 2.4-3.2/2.2-3.1 cm/m2 LVIDs: 1.83 2.0-3.6 cm LVPWd: 1.07 0.7-1.1 cm Ao Root: 3.30 2.1-3.5 cm LA Diam: 4.80 2.7-3.8/3.0-4.0 cm LAIDs Index: 3.02 1.5-2.3 cm/m2 LV Mass: 163.56 67-162/88-224 g LV Mass Index: 102.87 43-95/49-115 g/m2 LVOT Diam: 2.10 3.0+(-)1.3 cm 2D Systolic Function EF 4C: 59.30 >55% EF 2C: 66.30 >55% EF BiP: 62.60 >55% Mitral Valve MV VTI: 0.53 MV Pk Memo: 1.94 MV Mn Memo: 1.30 MV Pk Grad: 15.00 MV Mn Grad: 8.00 MV Pk E: 1.55 MV PK A: 1.54 MV Decel Time: 210.00 E/A: 1.00 E'Lateral: 3.59 E'Medial: 5.11 E/E' Med: 30.30 E/E' Lat: 43.20 PHT: 61.00 MVA PHT: 3.61 MVA Continuity: 1.38 Decel [place]: 7.39 Aortic Valve AoV Pk Memo: 1.15 AoV Mn Memo: 0.82 AoV VTI: 0.29 AoV Pk Grad: 5.00 Aov Mn Grad: 3.00 HARLEY Cont.VTI: 2.52 LVOT LVOT Pk Memo: 0.95 LVOT Mn Memo: 0.68 LVOT VTI: 0.21 LVOT Pk Grad: 4.00 LVOT Mn Grad: 2.00 LVOT Diam: 2.10 LVOT Area: 3.46 Diastolic Function MV Pk E: 1.55 MV Pk A: 1.54 E/A: 1.00 E'Medial: 5.11 E/E' Med: 30.30 E' Laterial: 3.59 E/E' Lat: 43.20 Right Ventricle TAPSE (mm): 30.00 Tricuspid Valve TR Pk Memo: 3.38 TR Pk Grad: 46.00 RA Press: 3.00 RVSP: 49.00 Great Vessels Aorta Ao Root-2D: 3.30 2.0-3.7 cm Ao Asc: 2.70 2.1-3.4 cm Pulmonary Valve PV Pk Memo: 0.96 Peak PV Grad: 4.00 Updated in Other Vendor System with Status of Final Luis Eduardo Cadet MD electronically signed on 11/08/2023 12:39:15 PM with status of Final
== END ==
LOC: HO.CARD 12:53
PROVIDERS: PCP Internal Medicine; Visit Provider Internal Medicine Cardiovascular Disease
DX: I50.32 Chronic diastolic (congestive) heart failure (principal)
CPT/HCPCS: 93306

== ENCOUNTER → 2023-11-06 12:55 | Outpatient (BNV) | payer MEDICARE, SELFPAY | PROVIDERS: PCP Internal Medicine; Visit Provider Internal Medicine Cardiovascular Disease | DX: I34.81 Nonrheumatic mitral (valve) annulus calcification (principal); Z95.818 Presence of other cardiac implants and grafts; I35.1 Nonrheumatic aortic (valve) insufficiency; I50.32 Chronic diastolic (congestive) heart failure | CPT/HCPCS: 93306 ==

== ENCOUNTER 2023-11-09 09:57 | Outpatient (AMB) | payer MEDICARE, SELFPAY ==
[2023-11-09 10:00] VITALS: BP 128/70; PULSE 85; O2SAT 99; BMI 23.8
--- NOTE | 2023-11-09 10:00 | A.OFFVIS_ITS ---
Vital Signs 11/09/23 10:00 Height 5 ft 2 in Weight 130 lb 1.164 oz BMI 23.8 BP 128/70 Blood Pressure Location Lt brachial Position Sitting Pulse 85 Pulse Source Pulse Oximeter Pulse Oximetry (%) 99 Oxygen Delivery Method Room Air Comment 2 Liters Oxygen(Inogen One) Intake Visit Reasons: Dyspnea Prosthetic Aide Required: No Allergies avocado [AVOCADO] Allergy (Mild, Verified 11/09/23 10:03) ITCHY THROAT, RASH azithromycin [AZITHROMYCIN] Allergy (Mild, Verified 11/09/23 10:03) ITCHY THROAT, RASH barium iodide [BARIUM IODIDE] Allergy (Mild, Verified 11/09/23 10:03) ITCHY THROAT, RASH barium sulfate Allergy (Mild, Verified 11/09/23 10:03) Itch bee pollen [BEE STINGS] Allergy (Mild, Verified 11/09/23 10:03) ITCHY THROAT, RASH ciprofloxacin [From CIPRO] Allergy (Mild, Verified 11/09/23 10:03) ITCHY THROAT, RASH clarithromycin [From BIAXIN] Allergy (Mild, Verified 11/09/23 10:03) ITCHY THROAT, RASH diatrizoate meglumine [From GASTROGRAFIN] Allergy (Mild, Verified 11/09/23 10:03) ITCHY THROAT, RASH diatrizoate sodium [From GASTROGRAFIN] Allergy (Mild, Verified 11/09/23 10:03) ITCHY THROAT, RASH diclofenac [From VOLTAREN] Allergy (Mild, Verified 11/09/23 10:03) ITCHY THROAT, RASH erythromycin base [ERYTHROMYCIN BASE] Allergy (Mild, Verified 11/09/23 10:03) ITCHY THROAT, RASH gentamicin [GENTAMICIN] Allergy (Mild, Verified 11/09/23 10:03) ITCHY THROAT, RASH Iodinated Contrast Media [IVP DYE] Allergy (Mild, Verified 11/09/23 10:03) ITCHY THROAT, RASH levofloxacin [From LEVAQUIN] Allergy (Mild, Verified 11/09/23 10:03) ITCHY THROAT, RASH metronidazole [From FLAGYL] Allergy (Mild, Verified 11/09/23 10:03) ITCHY THROAT, RASH moxifloxacin [From AVELOX] Allergy (Mild, Verified 11/09/23 10:03) ITCHY THROAT, RASH Penicillins [PENICILLINS] Allergy (Mild, Verified 11/09/23 10:03) ITCHY THROAT, RASH shrimp [SHRIMP] Allergy (Mild, Verified 11/09/23 10:03) ITCHY THROAT, RASH Sulfa (Sulfonamide Antibiotics) [SULFA (SULFONAMIDE ANTIBIOTICS)] Allergy (Mild, Verified 11/09/23 10:03) ITCHY THROAT, RASH vancomycin [VANCOMYCIN] Allergy (Mild, Verified 11/09/23 10:03) ITCHY THROAT, RASH clindamycin Adverse Reaction (Intermediate, Verified 11/09/23 10:03) Unknown HPI Comments Details: The patient is a 78 y/o woman with a complicated history which includes: COPD, KANDY, pulmonary HTN, history pulmonary emboli on chronic anticoagulation, lung CA Stage IIIA s/o neoadjuvant chemoradiation and Left upper lobe lobectomy. She did have a CT scan today that I personally reviewed. Has not been personally read by the radiologist. Based on my reading she has some pulmonary nodules some that are new 4 mm in the right major fissure area. Other nodules are stable. Other post operative and pulmonary fibrotic changes stable. The patient should get a CT scan in 6 months. Also to note, she did not tolerate the Incruse nor budesonide. Will consider Daliresp. She was admitted to [facility] with diverticulitis. She was placed on IV antibiotics but she left against medical advice because she did not like the antibiotic options. In the meantime she was having some issues with coughing up some blood. She is also concerned because on her visit to [facility] she did have a CT scan of the chest and she was told that she had significant scarring of her lungs in addition to lung volume loss. I have not looked at the CT scan back in reassured her that she has had this radiation fibrosis for long time and volume loss due to the scarring was present before. We did review her perfusion scan demonstrating no defects to suggest any blood clots. Interestingly in the quantitative study the patient did have 81% of the blood flow going to her right lung and 18% going to the left. This is likely due to her previous surgery and also radiation changes. 07/20/2023 the patient is here for a pulmonary follow-up visit. The patient overall has been doing fairly well. She just returned from a trip to [place]. She had 1 for time with her family. She continues use her oxygen with a portable oxygen concentrator while being there. She did have a cough when she was down there but since she came back the cough has improved some. She also describes symptoms of chest pain and also tachycardia which have been exertional. She does mention that the time that it happened she was coming back from the supermarket and she was carrying some groceries and she took off her oxygen. And when she tried carrying the groceries she started having some left-sided chest pressure and also some tachycardia. I also did take it for walk in the office. We did walker with a portable oxygen concentrator and she became dyspneic although the pulse ox was stable and heart rate was also stable. My suspicion is that in view of her congestive heart failure and pulmonary hypertension and moderate degree of COPD she is having some demand symptoms when she exerts herself without the oxygen. Therefore explained to her that she should not take off the oxygen while exerting herself and lifting groceries or objects. The patient is wondering about her pulmonary hypertension. Explained to her that vasodilators therapy will be potentially problematic specially with her reactions in the past. The main treatment at this point will be diuresis. She is tolerating that well she will undergo blood work to further address that. We did review her PFTs that she had back last year in appears that her COPD did worsen with an FEV1 of 74% predicted which is moderate severity. The patient also underwent blood work and her venous gas demonstrated an elevated CO2 and also she had an elevated bicarb. Will go ahead and have a repeat the blood work at this time. She is also having some abdominal discomfort. I suspect that she has recurrence of her diverticulitis. I will give her Vantin which she tolerates and if the symptoms worsen she needs to either go to her primary care doctor seek medical advice. 08/24/2023 the patient is here for a pulmonary follow-up visit. She was recently hospitalized at [facility] apparently with diverticulitis and also with pneumonia. The patient had a repeat CT scan of the abdomen just yesterday. We will request the results from [facility]. In the meantime the patient continues have shortness of breath with minimal activity. She does use her oxygen with good effect. She has been evaluated further for her pulmonary hypertension. She did speak to her specialists from [facility] who wants her to undergo a cardiac catheterization. She is reluctant to go to [facility]. And her canal equipment mechanic here is reluctant to do it here. She in the meantime will have an echocardiogram I believe in . Based on those results additional evaluation may be warranted. The patient does have dyspnea on exertion. [place] heart Association class 3. I do believe that this is related to her underlying pulmonary hypertension along with her significant COPD and restrictive lung disease. The patient does complaint of a cough the cough tends to be croupy in nature. She likely has a component of tracheomalacia. She does have daytime drowsiness. Her [place] score is elevated 10/24. She has a hard time remembering things. I did download her BiPAP. Currently setting 13 overnight. Her AHI is actually elevated at 13. This was not the case before on the same settings that she has had multiple sleep studies. Initially I was going to put her on VPAP auto but I just went ahead and increase her pressures to 15/10 in view of her very sensitive response to change. She will let me know how these pressures are doing we can always download her machine online to make sure that her AHI is decreasing. The patient's last blood gas demonstrated component of chronic hypercarbic respiratory failure along with a metabolic alkalosis. Likely from diuresis and her renal adjustments to her hypercarbia. The patient is scheduled to undergo an overnight oximetry on her BiPAP and on 2 L of oxygen which she has been using. We will reassess and check her venous blood gas during the next visit. 09/14/2023 the patient is here for visit. The patient still has multiple complaints. She is nervous. She feels like her breathing is getting worse and she is using oxygen more often. She also complains of pleuritic discomfort on the left side of her chest. She was seen by Cardiology and they do not see any active coronary artery disease based on her to coronary artery angiograms. The patient does have indeed some pulmonary hypertension and some mitral stenosis secondary to her mitral clip. She is responding well to the diuretics. No role for vasodilators therapy. The patient did have an overnight oximetry which we reviewed. The patient does need to increase her oxygen with BiPAP. She increases from 2 L to 3 L at this time. She needs to have further education about her use the concentrator so request a [employer] since somebody to educate her on how to switch her concentrator at this time. Meantime the patient is complaining of neck pain and also numbness of her upper extremities. She is al so having difficulty sleeping. Will go ahead and started on a small dose of gabapentin hopefully to help her with her neuropathic discomfort and also hopefully help her with her sleep. She is very sensitive to medications so she will start with 100 mg capsules which is very small dose and then increase it to 200 after a week if not any better. Seems that she was on Neurontin in the past and she did tolerated which is reassuring. 10/12/2023 the patient is here for a pulmonary follow-up visit. She has been complaining of right-sided chest discomfort now. Apparently she was in her car reason for something and she felt the uncomfortable pop on her right side of her chest. And now is tender to the touch hurts when she takes a deep breath in makes it difficult to breathe. She did go to an urgent care where she had an x- ray done. I do see a small hairline fracture on that right side. Therefore the patient will be uncomfortable for some time. The patient is concerned about the potential of lung collapse. Explained to her that this area does not appear to be displaced therefore some likely to be the case. However, in view of her significant symptoms in the fact that the radiology report once it was normal in the patient does have a history of cancer we should go ahead and request a CT scan to better address her pleuritic right-sided discomfort. The patient will be provided also with some pain medication although she is extremely sensitive to new medications. Therefore she can try the atenolol 3. To see this provides her with some relief because of the pain she understands that she needs to be read. I did give her a incentive spirometer so she can work on that. Her respiratory medications are the same. She is also using her BiPAP at night with the oxygen with good effect. She does complaint of additional dyspnea. [id number] severity. She is now relying on the oxygen more. She has noted that for the last 3 days she gained about 4 lb. She feels a little bit more bloated. She understands that she needs to take additional diuresis. 11/09/2023 the patient is here for a pulmonary follow-up visit. During the last visit the patient was having chest discomfort dizziness. We did check a D-dimer that was significantly elevated. The patient did go to [facility] which she did have a CTA. The patient did not have any evidence of any blood clots. I did personally review the CTA demonstrating stable postoperative changes and fibrotic changes. No significant new nodules noted. Again no thromboembolic disease. The patient was discharged. She has been doing okay she has been using her oxygen. She continued on the diuretics. She has episodes of palpitations with heart rate she states goes up to 150 beats per minute. During those episodes she does drop her saturations down to the 80s. Usually the symptoms subside after several minutes. The patient in the meantime has been complaining of lower extremity pain especially behind her knee on her left lower extremity. We did again recheck his D-dimer continues to be elevated so therefore will do lower extremity Dopplers. The patient is on Coumadin and her last INR was documented to be 1.5 which is her therapeutic window specially since she has platelet dysfunction. She continues respiratory therapy. She did have an episode of palpitations when using the nebulizer so I did recommend she can only use half a treatment if she really needs it. Otherwise she should try to refrain from its specially if she has had more cardiac instability and irritability. We also checked her electrolytes because of that as well. Her potassium was 3.1. She had not taken today's dose of potassium so therefore I did emphasize importance of taking her potassium oral supplementation to minimize cardiac arrhythmias. [facility] Medical History (Updated 11/09/23 @ 10:30 by Henry Kelly MD) Leg pain Anemia Tachycardia DVT (deep venous thrombosis) COPD (chronic obstructive pulmonary disease) Compression fracture of body of thoracic vertebra ASD (atrial septal defect) Pleuritic chest pain History of COVID-19 Chronic anticoagulation Hypothyroidism GERD (gastroesophageal reflux disease) Hyperlipidemia Hypertension Factor 5 Leiden mutation, heterozygous History of non-ST elevation myocardial infarction (NSTEMI) Hypoxia Anxiety PTSD (post-traumatic stress disorder) Hemoptysis Dyspnea Tracheobronchitis CLARA positive Diverticulitis Allergic bronchitis (HFpEF) heart failure with preserved ejection fraction Subarachnoid bleed Insomnia Anti-phospholipid antibody syndrome Hypogammaglobulinemia Chronic respiratory failure Arterial insufficiency of lower extremity Complex regional pain syndrome i of right lower limb Post herpetic neuralgia Pulmonary hypertension Pericardial effusion Pulmonary emboli Pleural effusion Radiation fibrosis of lung Pneumonitis Pulmonary nodules KANDY treated with BiPAP Lung cancer Surgical History History of colonoscopy History of lung surgery History of tonsillectomy History of hysterectomy S/P mitral valve clip implantation History of cardiac cath Family History Sister No problems noted. Mother Cardiovascular disease Daughter Tachycardia Other KANDY (obstructive sleep apnea) Social History Household Members: None Housing: House Do you presently have visiting nurse or other home services: Yes Unable to assess alcohol history related to: Unknown Alcohol intake: former Comment: stand by assist with ambulation Patient Tobacco Use Status: Never used Tobacco Second Hand Smoke Exposure: No Advance Directives Date on File: 06/15/22 service: No Current occupational status: retired Review of Systems Const Denies chills, Reports daytime sleepiness, Reports fatigue, Denies fever(s), Denies frequent falls, Denies weakness, Denies weight gain and Denies weight loss ENT Denies change in voice and Denies dizziness Card Reports chest pain, Reports chest pain with activity, Reports rapid heart rate, Denies leg edema, Denies lightheadedness, Denies palpitations, Denies dyspnea, Reports dyspnea on exertion, Denies orthopnea and Denies other (loss of consciousness) Resp Reports cough, Reports pain on inspiration, Reports pain with cough, Denies dyspnea and Reports dyspnea on exertion GI Denies hematochezia and Denies change in stool character Musc Denies abnormal gait, Denies muscle weakness, Denies numbness, Denies radiating pain into limb and Denies tingling Skin/Breast Reports change in pigmentation Neuro Denies abnormal gait, Denies dizziness, Denies frequent falls, Denies numbness, Denies tingling and Denies weakness Endo Reports fatigue and Denies palpitations Physical Exam Vital Signs: Last Vital Signs Pulse 85 11/09/23 10:00 BP 128/70 11/09/23 10:00 Pulse Ox 99 11/09/23 10:00 Oxygen Delivery Method Room Air 11/09/23 10:00 BMI result Body Mass Index 23.8 Last Vital Signs Temp 97.7 F 06/20/22 08:00 Pulse 90 06/20/22 08:00 Resp 16 06/20/22 08:00 BP 137/60 06/20/22 08:00 Pulse Ox 93 06/20/22 08:00 O2 Del Method 06/20/22 08:00 O2 Flow Rate 2 06/20/22 08:00 FiO2 45 06/14/22 11:07 BMI result Body Mass Index 23.0 Const General: cooperative, comfortable, alert and awake Orientation/consciousness: patient oriented x3 HEENT Head: Yes atraumatic Eyes General: appearance normal, both eyes and all related structures Neck Neck: Yes trachea midline, Yes supple and Yes no JVD Chest Chest palpation & inspection: tenderness rib (right side) Resp Effort & Inspection: normal respiratory effort, no cough and No prolonged expiratory phase Auscultation: no rales, no rhonchi, no wheezes and diminished lung sounds Cardio Rate: regular rate Rhythm: regular rhythm Heart sounds: S1 normal heart sound present, S2 normal heart sound present and Abnormal heart opening sounds loud S2 GI Auscultation: normal bowel sounds Skin General skin exam: purpura and scars Neuro General: patient oriented x3 and no focal motor deficits Extrem General: Yes no clubbing, cyanosis or edema Assessment & Plan Assessment & Plan (1) Lung cancer: Code(s): C34.90 - Malignant neoplasm of unspecified part of unspecified bronchus or lung Category: Medical Qualifiers: Laterality: left Lung location: upper lobe of lung Qualified Code(s): C34.12 - Malignant neoplasm of upper lobe, left bronchus or lung (2) Pulmonary hypertension: Comment: severe based on RHC, moderate based on recent echo Code(s): I27.20 - Pulmonary hypertension, unspecified Category: Medical (3) Pulmonary nodules: Code(s): R91.8 - Other nonspecific abnormal finding of lung field Category: Medical (4) Chronic respiratory failure: Code(s): J96.10 - Chronic respiratory failure, unspecified whether with hypoxia or hypercapnia Category: Medical Qualifiers: Respiratory failure complication: hypoxia and hypercapnia Qualified Code(s): J96.11 - Chronic respiratory failure with hypoxia; J96.12 - Chronic respiratory failure with hypercapnia (5) KANDY treated with BiPAP: Code(s): G47.33 - Obstructive sleep apnea (adult) (pediatric) Category: Medical (6) Radiation fibrosis of lung: Code(s): J70.1 - Chronic and other pulmonary manifestations due to radiation Category: Medical (7) COPD (chronic obstructive pulmonary disease): Code(s): J44.9 - Chronic obstructive pulmonary disease, unspecified Category: Medical Qualifiers: COPD type: chronic bronchitis Chronic bronchitis type: simple Qualified Code(s): J41.0 - Simple chronic bronchitis (8) Diastolic CHF: Code(s): I50.30 - Unspecified diastolic (congestive) heart failure Category: Medical Qualifiers: Heart failure chronicity: chronic Qualified Code(s): I50.32 - Chronic diastolic (congestive) heart failure (9) (HFpEF) heart failure with preserved ejection fraction: Code(s): I50.30 - Unspecified diastolic (congestive) heart failure Category: Medical Qualifiers: Heart failure chronicity: chronic Qualified Code(s): I50.32 - Chronic diastolic (congestive) heart failure (10) Tachycardia: Code(s): R00.0 - Tachycardia, unspecified Category: Medical Plan prednisone 2.5 mg Ambien for sleep continue Advair ASHA as needed CT chest continue ASHA (xopenex) as needed CPT with acapella valve fluticasone Oxygen 2L/pulse with activity and sleep. POC Inogen G5 duiresis as tolerated continue BIPAP at night with O2. AHI elevated->adjusted BIPAP 13/9 to 15/10 2.5L LE dopplers bloodwok F/U 6-8 weeks Orders: Orders Complete Blood Count Auto Diff Today D64.9 - Anemia, unspecified, M79.606 - Pain in leg, unspecified, R00.0 - Tachycardia, unspecified Vitamin D 25-OH (D2 and D3) Today D64.9 - Anemia, unspecified, M79.606 - Pain in leg, unspecified, R00.0 - Tachycardia, unspecified Vitamin B12 and Folate Today D64.9 - Anemia, unspecified, M79.606 - Pain in leg, unspecified, R00.0 - Tachycardia, unspecified D Dimer High Sensitivity Today D64.9 - Anemia, unspecified, M79.606 - Pain in leg, unspecified, R00.0 - Tachycardia, unspecified Ferritin Today D64.9 - Anemia, unspecified, M79.606 - Pain in leg, unspecified, R00.0 - Tachycardia, unspecified Liver Panel Today D64.9 - Anemia, unspecified, M79.606 - Pain in leg, unspecified, R00.0 - Tachycardia, unspecified Basic Metabolic Panel Today D64.9 - Anemia, unspecified, M79.606 - Pain in leg, unspecified, R00.0 - Tachycardia, unspecified Coding Level of Care Code Est Pt Level 5 (62949) Diagnoses Malignant neoplasm of upper lobe of left lung C34.12 Laterality: left Lung location: upper lobe of lung Pulmonary hypertension I27.20 Pulmonary nodules R91.8 Chronic respiratory failure with hypoxia and hypercapnia J96.11; J96.12 Respiratory failure complication: hypoxia and hypercapnia KANDY treated with BiPAP G47.33 Radiation fibrosis of lung 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 Chronic heart failure with preserved ejection fraction I50.32 Heart failure chronicity: chronic Tachycardia R00.0 Time Spent (min) 40
== END 2023-11-09 10:37 | disposition home or self-care (01) ==
PROVIDERS: PCP Internal Medicine; Visit Provider Hospitalist
DX: C34.12 Malignant neoplasm of upper lobe, left bronchus or lung (principal); I27.20 Pulmonary hypertension, unspecified; J96.11 Chronic respiratory failure with hypoxia; J96.12 Chronic respiratory failure with hypercapnia; G47.33 Obstructive sleep apnea (adult) (pediatric); J70.1 Chronic and other pulmonary manifestations due to radiation; J41.0 Simple chronic bronchitis; I50.32 Chronic diastolic (congestive) heart failure; R00.0 Tachycardia, unspecified
CPT/HCPCS: 99215

== ENCOUNTER 2023-11-09 09:57 | Outpatient (REF) | payer MEDICARE, SELFPAY ==
[2023-11-09 11:22] LABS: MANUAL DIFF FLAG NO
[2023-11-09 12:01] LABS: Basophils Absolute Auto 0.1 X10*3/uL (0.0-0.2); Basophils Percent Auto 0.5 % (0-2); Eosinophils Absolute Auto 0.1 X10*3/uL (0.0-0.4); Eosinophils Percent Auto 0.3 % (0-4); Hematocrit 37.4 % (37.0-47.0); Hemoglobin 12.2 g/dl (12.0-16.0); Imm Gran Abs Auto 0.16 X10*3/uL (0.00-0.03); Imm Gran Pct Auto 1.1 % (0.0-0.4); Lymphocytes Absolute Auto 0.8 X10*3/uL (1.2-4.9); Lymphocytes Percent Auto 5.4 % (20-40); Mean Corpuscular HGB Conc 32.6 g/dl (31.0-35.0); Mean Corpuscular Hemoglobin 32.9 pg (27.0-33.0); Mean Corpuscular Volume 100.8 fL (80.0-98.0); Mean Platelet Volume 11.3 fL (9.4-12.3); Monocytes Percent Auto 6.6 % (2-11); Neutrophils Absolute Auto 12.3 x10*3/uL (2.0-8.3); Neutrophils Percent Auto 86.1 % (45-73); Platelet Count 234 X10*3/uL (160-400); Red Blood Count 3.71 X10*6/uL (4.20-5.50); Red Cell Distribution Width 13.5 % (11.0-16.0); White Blood Count 14.3 X10*3/uL (4.8-10.8)
[2023-11-09 12:12] LABS: D Dimer High Sensitivity 365 NG/ML
[2023-11-09 12:50] LABS: Alanine Aminotransferase 30 U/L (0-31); Alkaline Phosphatase 58 U/L (39-117); Anion Gap 14 (12-20); Aspartate Amino Transferase 33 U/L (5-31); Bilirubin Direct 0.2 mg/dL (0.0-0.5); Bilirubin Total 0.4 mg/dL (0.0-1.0); Blood Urea Nitrogen 30 mg/dL (9-16); Calcium 10.8 mg/dL (8.4-10.2); Carbon Dioxide 35 mmol/L (22-29); Chloride 96 mmol/L (96-108); Estimated Glomerular Filt Rate > 60; Ferritin 80 ng/mL (10-250); Glucose Random 90 mg/dL (60-115); Potassium 3.1 mmol/L (3.3-5.1); Sodium 142 mmol/L (135-145); Total Protein 7.2 g/dL (6.5-8.0)
[2023-11-09 14:10] LABS: Folate 14.2 ng/mL (> or = 4.0); Vitamin B12 769 pg/mL (200-900)
[2023-11-13 14:47] LABS: Vitamin D 25-OH, D2 <4 ng/mL; Vitamin D 25-OH, D3 30 ng/mL; Vitamin D 25-OH, Total 30 ng/mL (30-100)
== END 2023-11-09 09:58 | disposition home or self-care (01) ==
LOC: HO.LAB 09:57
PROVIDERS: PCP Internal Medicine; Visit Provider Hospitalist
DX: J44.9 Chronic obstructive pulmonary disease, unspecified (principal); I50.30 Unspecified diastolic (congestive) heart failure; R00.0 Tachycardia, unspecified; D64.9 Anemia, unspecified; M79.606 Pain in leg, unspecified; C34.12 Malignant neoplasm of upper lobe, left bronchus or lung; I27.20 Pulmonary hypertension, unspecified; R91.8 Other nonspecific abnormal finding of lung field; J96.11 Chronic respiratory failure with hypoxia; J96.12 Chronic respiratory failure with hypercapnia; G47.33 Obstructive sleep apnea (adult) (pediatric); J70.1 Chronic and other pulmonary manifestations due to radiation; I50.32 Chronic diastolic (congestive) heart failure
CPT/HCPCS: 36415; 80048; 80076; 82306; 82607; 82728; 82746; 85025; 85379; 99212

== ENCOUNTER 2023-11-17 13:49 | Outpatient (REF) | payer MEDICARE, SELFPAY ==
--- NOTE | ~2023-11-17 | US_ITS ---
EXAMINATION: US VENOUS ULTRASOUND WITH DOPPLER LOWER EXTREMITY, BILATERAL CLINICAL INFORMATION: Lower extremity DVT ultrasound 10/14/2023 COMPARISON: None available. TECHNIQUE: Ultrasound of the deep veins is performed from the hip to the calf with compression sonography and color and pulse Doppler assessment. Spectral analysis with color-flow imaging is performed. FINDINGS: RIGHT: There is normal venous compression and respiratory variation and augmented flow. The visualized common femoral vein, superficial femoral vein, profunda femoral vein, popliteal vein, and the trifurcation region shows no evidence of deep venous thrombosis. There is no significant popliteal fossa cyst. LEFT: There is normal venous compression and respiratory variation and augmented flow. The visualized common femoral vein, superficial femoral vein, profunda femoral vein, popliteal vein, and the trifurcation region shows no evidence of deep venous thrombosis. There is no significant popliteal fossa cyst. US/US venous duplex LE BI IMPRESSION: No DVT demonstrated in the bilateral lower extremity.
== END 2023-11-17 13:50 | disposition home or self-care (01) ==
LOC: HO.US 13:49
PROVIDERS: PCP Internal Medicine; Visit Provider Hospitalist
DX: M79.662 Pain in left lower leg (principal); M79.661 Pain in right lower leg; R79.89 Other specified abnormal findings of blood chemistry; R60.9 Edema, unspecified
CPT/HCPCS: 93970

== ENCOUNTER 2023-11-20 11:28 | Outpatient (AMB) | payer MEDICARE, SELFPAY ==
[2023-11-20 11:36] VITALS: BP 120/54; PULSE 82; BMI 24.4
--- NOTE | 2023-11-20 11:36 | MHC.OFFVIS ---
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 Experiences Required: No Accompanied by: Self / Same As Patient Allergies avocado [AVOCADO] Allergy (Mild, Verified 11/09/23 10:03) ITCHY THROAT, RASH azithromycin [AZITHROMYCIN] Allergy (Mild, Verified 11/09/23 10:03) ITCHY THROAT, RASH barium iodide [BARIUM IODIDE] Allergy (Mild, Verified 11/09/23 10:03) ITCHY THROAT, RASH barium sulfate Allergy (Mild, Verified 11/09/23 10:03) Itch bee pollen [BEE STINGS] Allergy (Mild, Verified 11/09/23 10:03) ITCHY THROAT, RASH ciprofloxacin [From CIPRO] Allergy (Mild, Verified 11/09/23 10:03) ITCHY THROAT, RASH clarithromycin [From BIAXIN] Allergy (Mild, Verified 11/09/23 10:03) ITCHY THROAT, RASH diatrizoate meglumine [From GASTROGRAFIN] Allergy (Mild, Verified 11/09/23 10:03) ITCHY THROAT, RASH diatrizoate sodium [From GASTROGRAFIN] Allergy (Mild, Verified 11/09/23 10:03) ITCHY THROAT, RASH diclofenac [From VOLTAREN] Allergy (Mild, Verified 11/09/23 10:03) ITCHY THROAT, RASH erythromycin base [ERYTHROMYCIN BASE] Allergy (Mild, Verified 11/09/23 10:03) ITCHY THROAT, RASH gentamicin [GENTAMICIN] Allergy (Mild, Verified 11/09/23 10:03) ITCHY THROAT, RASH Iodinated Contrast Media [IVP DYE] Allergy (Mild, Verified 11/09/23 10:03) ITCHY THROAT, RASH levofloxacin [From LEVAQUIN] Allergy (Mild, Verified 11/09/23 10:03) ITCHY THROAT, RASH metronidazole [From FLAGYL] Allergy (Mild, Verified 11/09/23 10:03) ITCHY THROAT, RASH moxifloxacin [From AVELOX] Allergy (Mild, Verified 11/09/23 10:03) ITCHY THROAT, RASH Penicillins [PENICILLINS] Allergy (Mild, Verified 11/09/23 10:03) ITCHY THROAT, RASH shrimp [SHRIMP] Allergy (Mild, Verified 11/09/23 10:03) ITCHY THROAT, RASH Sulfa (Sulfonamide Antibiotics) [SULFA (SULFONAMIDE ANTIBIOTICS)] Allergy (Mild, Verified 11/09/23 10:03) ITCHY THROAT, RASH vancomycin [VANCOMYCIN] Allergy (Mild, Verified 11/09/23 10:03) ITCHY THROAT, RASH clindamycin Adverse Reaction (Intermediate, Verified 11/09/23 10:03) Unknown Medication List - Last Reconciled 11/20/23 by Luis Eduardo Cadet MD acetaminophen-codeine 300-15 mg 1 tab PO Q8H PRN 10 days Advair HFA 230-21 mcg/actuation (fluticasone propion-salmeterol) 2 puffs inhalation BID 90 days NS albuterol sulfate 2.5 mg (3 mL) inhalation Q6H PRN 30 days cefpodoxime 200 mg PO BID 14 days codeine-guaifenesin 10-100 mg/5 mL 5 mL PO Q6H PRN 10 days CPAP (CPAP Machine/Device) As directed diazepam 5 mg PO BID epinephrine IM furosemide 40 mg orally Two tablets in the morning 1 tablet in the afternoon 90 days levocetirizine 5 mg PO DAILY 90 days levothyroxine (Synthroid) 25 mcg PO MOTUWETHFR@0600 meclizine 25 mg PO TID PRN 14 days metoprolol succinate ER (Toprol XL) 50 mg PO BID montelukast 10 mg PO DAILY nebulizers As directed Oxygen Home Use As directed potassium chloride 20 mEq PO DAILY prednisone 2.5 mg PO Q OTHER DAY rosuvastatin 10 mg PO Q OTHER DAY trazodone 100 mg (2 x 50 mg) PO BEDTIME triamcinolone acetonide 0.1% topical triamcinolone acetonide 0.1% 1 appl topical BID-TID warfarin (Jantoven) mg PO HPI Comments Details: 78-year-old female complex medical issues presenting follow-up. She recently was diagnosed with severe mitral valve regurgitation was felt not to be a good surgical candidate and underwent MitraClip. She had improvement in symptoms afterwards. She has advanced lung disease due to previous lung resection as well as radiation to the lungs. She also had pulmonary embolism in the past. She has pulmonary hypertension. She is presenting now because she was becoming more short of breath and had lower extremity edema. On her own she crease her furosemide to 40 mg over the last week or so. She said her breathing did not change with that strategy. It appears early November she was in the emergency department with shortness of breath and was diagnosed with left lower lobe pneumonia. She had some sharp left-sided chest pains which were pleuritic in nature likely due to underlying pneumonia. She was given antibiotics which she has completed. She is saying that her oxygen saturations the low when she is laying down. She does not use oxygen frequently. Specifically outside her home she does not use oxygen. She has tachycardia when she is ambulating which she has noticed but does not significantly get any palpitations. She continues to get short of breath with activities. She saw a pulmonary hypertension specialist and by her description she was told that her pulmonary hypertension was mostly due to mitral regurgitation. She is following with pulmonology at [place]. 12/29/22: Was brought in for urgent follow-up. She called and was complaining of palpitations and fast heart rates as high as 120 beats per minute and was also complaining of shortness of breath. It appears she was referred for echocardiography by pulmonology and this showed that her right ventricle is [id number] dilated, right atrium was severely dilated with small pericardial effusion as before but small to moderate pleural effusion was also noted. Previous iatrogenic ASD from transseptal puncture was noted as well mitral stenosis due to mitral clip with mean gradient of 8-9 mm Hg. Previously this was 7 mm Hg. The patient was previously advised to use oxygen when she is ambulating. Apparently she was out with her friends and while walking she was not using oxygen and started feeling shortness of breath and checked her pulse and it was 120 beats per minute. She is saying when she is using oxygen she does not get similar symptoms and has not had any tachycardia while using oxygen. She has also gained few lb over the last few days. She was sent for chest x-ray which is showing left basal pleural effusion as seen on the echocardiography also. She is taking Lasix 40 mg once a day. She is on metoprolol succinate 25 mg twice a day. 01/11/23: She returns for follow-up. She had Holter monitor on her and the day she came to return it she had significant palpitations and shortness of breath while walking to the Cardiology Department. She said she was not rushing and was walking at a slow pace. She said these symptoms improved afterwards and she did not have any for the palpitations walking back to her car. She was using oxygen. She is wearing oxygen 30/01 but is saying that she feels lousy and has not felt any difference in her dyspnea or palpitations. She has been using 40 mg twice a day of Lasix. Her blood pressure control is good. Previously we did not increase her Toprol XL despite seeing some degree of mitral stenosis on her echocardiogram which is iatrogenic due to MitraClip. She has been more sedentary and is quite frail and deconditioned. She is tearful that she is unable to do any of the activities she was able to do before. 02/13/23: She returns for follow-up. She was previously on 40 mg p.o. b.i.d. Lasix. She had called our office for lower extremity edema and Lasix dose was increased to 80 mg twice a day. Subsequent to that she called or office that she is dehydrated and was advised to take 80 mg in the morning and 40 in the afternoon. She had blood workup which showed hypokalemia and she was started on potassium supplements. She continues to get fatigue and SOB. She is using oxygen when sleeping and with ambulation. Continues to get tachycardia with ambulation. 04/26/2023: She returns for follow-up. She called us yesterday because she gained 3 lb over 3 days. She was taking 40 mg p.o. b.i.d. Lasix. She was advised to take an extra dose of Lasix yesterday and increase the Lasix to 80 mg in the morning today. She said she checked her weight today and was back at 128 lb which was her baseline. She is saying she has been short of breath and fatigue. Also she had upper back pain which moved to her chest early April and she went to [facility] where she had a chest CTA performed which did not show any evidence of dissection or pulmonary embolism. Pulmonary arteries were noticed to be dilated consistent with her known history of pulmonary hypertension. 08/14/2023: She returns for follow-up. She had an episode of diverticulitis which was treated in the hospital. She said she went home and was getting some shortness of breath and wheezing and was advised to go back to the hospital and was treated for pneumonia also. She continues to have symptoms like before including chest tightness, fatigue and inability to exercise. She is on oxygen mostly at times. She complains of some edema in the lower extremity but nothing significant is noted on examination. 09/04/2023: She returns for urgent follow-up. She is complaining of shortness of breath and palpitations. She said she was tachycardic and checked her heart rate and was 100 beats per minute. She has been using oxygen most of the time. Sometimes she takes it off and if the oxygen level is dropping she wears oxygen back. During activities she has been using oxygen. Continues to get off and on chest discomfort. She had an echocardiogram done at [facility] with transmitral gradient was 7 mm Hg at a heart rate of 76 beats per minute. 10/17/23: She is here for follow-up after recent ER visit. Apparently was getting lower extremity edema and went to the emergency department where she was told that she may have congestive heart failure. No significant changes in medications were made. Her BNP was at the same level that it has been previously. She called our office and was concerned and we decided to bring her for office visit. She is saying that she was short of breath and had lower extremity edema and went to the emergency department and apparently after testing no changes in medications were made. She clearly has some peripheral edema. She also is complaining of some shortness of breath with activities. 11/20/23: She is here for follow-up. She had repeat echocardiography performed which is showing normal LV function 60-65 % without any wall motion abnormalities with elevated filling pressures, normal right ventricular systolic function with mild RV dilation, mitral clip with 8 mm pressure gradient across the mitral valve at heart rate of 88 beats per minute. [id number] pulmonary hypertension. She is complaining of fatigue and gets tired very easily. She has not been exercising and has slowed down significantly. With Lasix her volume status appears to be better but she is still complaining of off and on lower extremity edema. She is concerned about her kidneys. I have reassured her that she looks euvolemic. Also discussed with her the ECHO findings which are quite reassuring currently. [facility] Medical History (Updated 11/09/23 @ 10:30 by Henry Kelly MD) Leg pain Anemia Tachycardia DVT (deep venous thrombosis) COPD (chronic obstructive pulmonary disease) Compression fracture of body of thoracic vertebra ASD (atrial septal defect) Pleuritic chest pain History of COVID-19 Chronic anticoagulation Hypothyroidism GERD (gastroesophageal reflux disease) Hyperlipidemia Hypertension Factor 5 Leiden mutation, heterozygous History of non-ST elevation myocardial infarction (NSTEMI) Hypoxia Anxiety PTSD (post-traumatic stress disorder) Hemoptysis Dyspnea Tracheobronchitis CLARA positive Diverticulitis Allergic bronchitis (HFpEF) heart failure with preserved ejection fraction Subarachnoid bleed Insomnia Anti-phospholipid antibody syndrome Hypogammaglobulinemia Chronic respiratory failure Arterial insufficiency of lower extremity Complex regional pain syndrome i of right lower limb Post herpetic neuralgia Pulmonary hypertension Pericardial effusion Pulmonary emboli Pleural effusion Radiation fibrosis of lung Pneumonitis Pulmonary nodules KANDY treated with BiPAP Lung cancer Surgical History History of colonoscopy History of lung surgery History of tonsillectomy History of hysterectomy S/P mitral valve clip implantation History of cardiac cath Family History Sister No problems noted. Mother Cardiovascular disease Daughter Tachycardia Other KANDY (obstructive sleep apnea) Social History Household Members: None Housing: House Do you presently have visiting nurse or other home services: Yes Unable to assess alcohol history related to: Unknown Alcohol intake: former Comment: stand by assist with ambulation Patient Tobacco Use Status: Never used Tobacco Second Hand Smoke Exposure: No Advance Directives Date on File: 06/15/22 service: No Current occupational status: retired Review of Systems Const Denies chills, Denies fatigue, Denies fever(s), Denies frequent falls, Denies weakness, Denies weight gain and Denies weight loss ENT Denies dizziness Card Denies chest pain, Denies leg edema, Denies lightheadedness, Denies palpitations, Denies dyspnea and Denies dyspnea on exertion Resp Denies cough, Denies dyspnea and Denies dyspnea on exertion GI Denies hematochezia Musc Denies abnormal gait, Denies muscle weakness, Denies numbness, Denies radiating pain into limb and Denies tingling Neuro Denies abnormal gait, Denies dizziness, Denies frequent falls, Denies numbness, Denies tingling and Denies weakness Endo Denies fatigue and Denies palpitations Physical Exam Vital Signs: Last Vital Signs Pulse 82 11/20/23 11:36 BP 120/54 L 11/20/23 11:36 BMI result Body Mass Index 24.4 GENERAL APPEARANCE: In no distress. NECK/THYROID: no carotid bruit, no JVD. SKIN: no suspicious lesions, warm and dry. HEART: no murmurs, regular rate and rhythm, S1, S2 normal. LUNGS: clear to auscultation bilaterally. ABDOMEN: normal, bowel sounds present, soft, nontender, nondistended. EXTREMITIES: no clubbing, cyanosis. No edema. PERIPHERAL PULSES: equal. NEUROLOGIC: nonfocal, alert and oriented. Assessment & Plan Assessment & Plan (1) (HFpEF) heart failure with preserved ejection fraction: Code(s): I50.30 - Unspecified diastolic (congestive) heart failure Category: Medical Qualifiers: Heart failure chronicity: chronic Qualified Code(s): I50.32 - Chronic diastolic (congestive) heart failure Plan 78-year-old female who is here for follow-up. She is multiple comorbidities and complex issues. On last visit she was noticed to be in congestive heart failure and Lasix dose was increased to 80 mg in the morning and 40 in the afternoon. With that strategy her overall volume status appears to be better. She has off and on lower extremity edema but nothing consistent currently. Echocardiography has shown normal LV function with elevated filling pressures due to diastolic dysfunction. RV looks mildly dilated compared to [id number] dilation previously. RV function is normal. Similar gradient across the mitral valve status post mitral clip. Doing well. I have advised her that she should continue oxygen because probably that played a big role in her RV recovery. Thank you for allowing me to participate in the care of your patient. Please feel free to contact me if you have any questions. Coding Level of Care Code Est Pt Level 5 (52116) Diagnoses Chronic heart failure with preserved ejection fraction I50.32 Heart failure chronicity: chronic
== END 2023-11-20 12:32 | disposition home or self-care (01) ==
PROVIDERS: PCP Internal Medicine; Visit Provider Internal Medicine Cardiovascular Disease
DX: I50.32 Chronic diastolic (congestive) heart failure (principal); Z95.4 Presence of other heart-valve replacement
CPT/HCPCS: 99214

== ENCOUNTER → 2023-11-20 11:28 | Outpatient (BNVA) | payer MEDICARE, SELFPAY | PROVIDERS: PCP Internal Medicine; Visit Provider Internal Medicine Cardiovascular Disease | DX: I50.32 Chronic diastolic (congestive) heart failure (principal) | CPT/HCPCS: 99212 ==

== ENCOUNTER 2023-12-15 09:16 | Outpatient (REF) | payer MEDICARE, SELFPAY ==
[2023-12-15 11:40] LABS: Venous Blood Gas Refer to POC result
[2023-12-15 11:41] LABS: VBG Base Excess 16.4 mmol/L; VBG HCO3 43 mmol/L (22-26); VBG pCO2 59 mmHg; VBG pH 7.47 (7.32-7.43); VBG pO2 19 mmHg
[2023-12-15 11:54] LABS: Anion Gap 12 (12-20); Blood Urea Nitrogen 25 mg/dL (9-16); Calcium 10.3 mg/dL (8.4-10.2); Carbon Dioxide 36 mmol/L (22-29); Chloride 97 mmol/L (96-108); Estimated Glomerular Filt Rate > 60; Glucose Random 86 mg/dL (60-115); Sodium 142 mmol/L (135-145)
== END 2023-12-15 09:17 | disposition home or self-care (01) ==
LOC: HO.LAB 09:16
PROVIDERS: PCP Internal Medicine; Visit Provider Hospitalist
DX: J41.0 Simple chronic bronchitis (principal); J96.10 Chronic respiratory failure, unspecified whether with hypoxia or hypercapnia; J70.1 Chronic and other pulmonary manifestations due to radiation; J96.12 Chronic respiratory failure with hypercapnia; J96.11 Chronic respiratory failure with hypoxia; G47.33 Obstructive sleep apnea (adult) (pediatric); C34.90 Malignant neoplasm of unspecified part of unspecified bronchus or lung; C34.12 Malignant neoplasm of upper lobe, left bronchus or lung; I27.20 Pulmonary hypertension, unspecified; R91.8 Other nonspecific abnormal finding of lung field; I50.32 Chronic diastolic (congestive) heart failure; R00.0 Tachycardia, unspecified; Z86.711 Personal history of pulmonary embolism
CPT/HCPCS: 36415; 80048; 82803; 99212

== ENCOUNTER 2023-12-15 09:16 | Outpatient (AMB) | payer MEDICARE, SELFPAY ==
[2023-12-15 09:20] VITALS: BP 134/60; PULSE 82; O2SAT 98; BMI 23.8
--- NOTE | 2023-12-15 09:20 | A.OFFVIS_ITS ---
Vital Signs 12/15/23 09:20 Height 5 ft 2 in Weight 130 lb BMI 23.8 BP 134/60 Blood Pressure Location Rt brachial Position Sitting Pulse 82 Pulse Source Pulse Oximeter Pulse Oximetry (%) 98 Oxygen Delivery Method Room Air Comment 2 Liters Oxygen([facility]) Intake Visit Reasons: dyspnea [employer] Operator Required: No Allergies avocado [AVOCADO] Allergy (Mild, Verified 12/16/23 22:07) ITCHY THROAT, RASH azithromycin [AZITHROMYCIN] Allergy (Mild, Verified 12/16/23 22:07) ITCHY THROAT, RASH barium iodide [BARIUM IODIDE] Allergy (Mild, Verified 12/16/23 22:07) ITCHY THROAT, RASH barium sulfate Allergy (Mild, Verified 12/16/23 22:07) Itch bee pollen [BEE STINGS] Allergy (Mild, Verified 12/16/23 22:07) ITCHY THROAT, RASH ciprofloxacin [From CIPRO] Allergy (Mild, Verified 12/16/23 22:07) ITCHY THROAT, RASH clarithromycin [From BIAXIN] Allergy (Mild, Verified 12/16/23 22:07) ITCHY THROAT, RASH diatrizoate meglumine [From GASTROGRAFIN] Allergy (Mild, Verified 12/16/23 22:07) ITCHY THROAT, RASH diatrizoate sodium [From GASTROGRAFIN] Allergy (Mild, Verified 12/16/23 22:07) ITCHY THROAT, RASH diclofenac [From VOLTAREN] Allergy (Mild, Verified 12/16/23 22:07) ITCHY THROAT, RASH erythromycin base [ERYTHROMYCIN BASE] Allergy (Mild, Verified 12/16/23 22:07) ITCHY THROAT, RASH gentamicin [GENTAMICIN] Allergy (Mild, Verified 12/16/23 22:07) ITCHY THROAT, RASH Iodinated Contrast Media [IVP DYE] Allergy (Mild, Verified 12/16/23 22:07) ITCHY THROAT, RASH levofloxacin [From LEVAQUIN] Allergy (Mild, Verified 12/16/23 22:07) ITCHY THROAT, RASH metronidazole [From FLAGYL] Allergy (Mild, Verified 12/16/23 22:07) ITCHY THROAT, RASH moxifloxacin [From AVELOX] Allergy (Mild, Verified 12/16/23 22:07) ITCHY THROAT, RASH Penicillins [PENICILLINS] Allergy (Mild, Verified 12/16/23 22:07) ITCHY THROAT, RASH shrimp [SHRIMP] Allergy (Mild, Verified 12/16/23 22:07) ITCHY THROAT, RASH Sulfa (Sulfonamide Antibiotics) [SULFA (SULFONAMIDE ANTIBIOTICS)] Allergy (Mild, Verified 12/16/23 22:07) ITCHY THROAT, RASH vancomycin [VANCOMYCIN] Allergy (Mild, Verified 12/16/23 22:07) ITCHY THROAT, RASH clindamycin Adverse Reaction (Intermediate, Verified 12/16/23 22:07) Unknown HPI Comments Details: The patient is a 78 y/o woman with a complicated history which includes: COPD, KNADY, pulmonary HTN, history pulmonary emboli on chronic anticoagulation, lung CA Stage IIIA s/o neoadjuvant chemoradiation and Left upper lobe lobectomy. She did have a CT scan today that I personally reviewed. Has not been personally read by the radiologist. Based on my reading she has some pulmonary nodules some that are new 4 mm in the right major fissure area. Other nodules are stable. O ther post operative and pulmonary fibrotic changes stable. The patient should get a CT scan in 6 months. Also to note, she did not tolerate the Incruse nor budesonide. Will consider Daliresp. She was admitted to [facility] with diverticulitis. She was placed on IV antibiotics but she left against medical advice because she did not like the antibiotic options. In the meantime she was having some issues with coughing up some blood. She is also concerned because on her visit to [facility] [place] she did have a CT scan of the chest and she was told that she had significant scarring of her lungs in addition to lung volume loss. I have not looked at the CT scan back in reassured her that she has had this radiation fibrosis for long time and volume loss due to the scarring was present before. We did review her perfusion scan demonstrating no defects to suggest any blood clots. Interestingly in the quantitative study the patient did have 81% of the blood flow going to her right lung and 18% going to the left. This is likely due to her previous surgery and also radiation changes. 07/20/2023 the patient is here for a pulmonary follow-up visit. The patient overall has been doing fairly well. She just returned from a trip to [place]. She had 1 for time with her family. She continues use her oxygen with a portable oxygen concentrator while being there. She did have a cough when she was down there but since she came back the cough has improved some. She also describes symptoms of chest pain and also tachycardia which have been exertional. She does mention that the time that it happened she was coming back from the supermarket and she was carrying some groceries and she took off her oxygen. And when she tried carrying the groceries she started having some left- sided chest pressure and also some tachycardia. I also did take it for walk in the office. We did walker with a portable oxygen concentrator and she became dyspneic although the pulse ox was stable and heart rate was also stable. My suspicion is that in view of her congestive heart failure and pulmonary hypertension and moderate degree of COPD she is having some demand symptoms when she exerts herself without the oxygen. Therefore explained to her that she should not take off the oxygen while exerting herself and lifting groceries or objects. The patient is wondering about her pulmonary hypertension. Explained to her that vasodilators therapy will be potentially problematic specially with her reactions in the past. The main treatment at this point will be diuresis. She is tolerating that well she will undergo blood work to further address that. We did review her PFTs that she had back last year in appears that her COPD did worsen with an FEV1 of 74% predicted which is moderate severity. The patient also underwent blood work and her venous gas demonstrated an elevated CO2 and also she had an elevated bicarb. Will go ahead and have a repeat the blood work at this time. She is also having some abdominal discomfort. I suspect that she has recurrence of her diverticulitis. I will give her Vantin which she tolerates and if the symptoms worsen she needs to either go to her primary care doctor seek medical advice. 08/24/2023 the patient is here for a pulmonary follow-up visit. She was recently hospitalized at [facility] apparently with diverticulitis and also with pneumonia. The patient had a repeat CT scan of the abdomen just yesterday. We will request the results from [place]. In the meantime the patient continues have shortness of breath with minimal activity. She does use her oxygen with good effect. She has been evaluated further for her pulmonary hypertension. She did speak to her specialists from [facility] who wants her to undergo a cardiac catheterization. She is reluctant to go to [facility]. 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 She in the meantime will have an echocardiogram I believe in [facility]. Based on those results additional evaluation may be warranted. The patient does have dyspnea on exertion. [place] heart Association class 3. I do believe that this is related to her underlying pulmonary hypertension along with her significant COPD and restrictive lung disease. The patient does complaint of a cough the cough tends to be croupy in nature. She likely has a component of tracheomalacia. She does have daytime drowsiness. Her [place] score is elevated 10/24. She has a hard time remembering things. I did download her BiPAP. Currently setting 13 overnight. Her AHI is actually elevated at 13. This was not the case before on the same settings that she has had multiple sleep studies. Initially I was going to put her on VPAP auto but I just went ahead and increase her pressures to 15/10 in view of her very sensitive response to change. She will let me know how these pressures are doing we can always download her machine online to make sure that her AHI is decreasing. The patient's last blood gas demonstrated component of chronic hypercarbic respiratory failure along with a metabolic alkalosis. Likely from diuresis and her renal adjustments to her hypercarbia. The patient is scheduled to undergo an overnight oximetry on her BiPAP and on 2 L of oxygen which she has been using. We will reassess and check her venous blood gas during the next visit. 09/14/2023 the patient is here for visit. The patient still has multiple complaints. She is nervous. She feels like her breathing is getting worse and she is using oxygen more often. She also complains of pleuritic discomfort on the left side of her chest. She was seen by Cardiology and they do not see any active coronary artery disease based on her to coronary artery angiograms. The patient does have indeed some pulmonary hypertension and some mitral stenosis secondary to her mitral clip. She is responding well to the diuretics. No role for vasodilators therapy. The patient did have an overnight oximetry which we reviewed. The patient does need to increase her oxygen with BiPAP. She increases from 2 L to 3 L at this time. She needs to have further education about her use the concentrator so request a [facility] since somebody to educate her on how to switch her concentrator at this time. Meantime the patient is complaining of neck pain and also numbness of her upper extremities. She is also having difficulty sleeping. Will go ahead and started on a small dose of gabapentin hopefully to help her with her neuropathic discomfort and also hopefully help her with her sleep. She is very sensitive to medications so she will start with 100 mg capsules which is very small dose and then increase it to 200 after a week if not any better. Seems that she was on Neurontin in the past and she did tolerated which is reassuring. 10/12/2023 the patient is here for a pulmonary follow-up visit. She has been complaining of right-sided chest discomfort now. Apparently she was in her car reason for something and she felt the uncomfortable pop on her right side of her chest. And now is tender to the touch hurts when she takes a deep breath in makes it difficult to breathe. She did go to an urgent care where she had an x- ray done. I do see a small hairline fracture on that right side. Therefore the patient will be uncomfortable for some time. The patient is concerned about the potential of lung collapse. Explained to her that this area does not appear to be displaced therefore some likely to be the case. However, in view of her significant symptoms in the fact that the radiology report once it was normal in the patient does have a history of cancer we should go ahead and request a CT scan to better address her pleuritic right-sided discomfort. The patient will be provided also with some pain medication although she is extremely sensitive to new medications. Therefore she can try the atenolol 3. To see this provides her with some relief because of the pain she understands that she needs to be read. I did give her a incentive spirometer so she can work on that. Her respiratory medications are the same. She is also using her BiPAP at night with the oxygen with good effect. She does complaint of additional dyspnea. [id number] severity. She is now relying on the oxygen more. She has noted that for the last 3 days she gained about 4 lb. She feels a little bit more bloated. She understands that she needs to take additional diuresis. 11/09/2023 the patient is here for a pulmonary follow-up visit. During the last visit the patient was having chest discomfort dizziness. We did check a D-dimer that was significantly elevated. The patient did go to [facility] which she did have a CTA. The patient did not have any evidence of any blood clots. I did personally review the CTA demonstrating stable postoperative changes and fibrotic changes. No significant new nodules noted. Again no thromboembolic disease. The patient was discharged. She has been doing okay she has been using her oxygen. She continued on the diuretics. She has episodes of palpitations with heart rate she states goes up to 150 beats per minute. During those episodes she does drop her saturations down to the 80s. Usually the symptoms subside after several minutes. The patient in the meantime has been complaining of lower extremity pain especially behind her knee on her left lower extremity. We did again recheck his D-dimer continues to be elevated so therefore will do lower extremity Dopplers. The patient is on Coumadin and her last INR was documented to be 1.5 which is her therapeutic window specially since she has platelet dysfunction. She continues respiratory therapy. She did have an episode of palpitations when using the nebulizer so I did recommend she can only use half a treatment if she really needs it. Otherwise she should try to refrain from its specially if she has had more cardiac instability and irritability. We also checked her electrolytes because of that as well. Her potassium was 3.1. She had not taken today's dose of potassium so therefore I did emphasize importance of taking her potassium oral supplementation to minimize cardiac arrhythmias. 12/15/2023 the patient is here for pulmonary follow-up visit. Still having difficulties with her lower extremity edema. I did reassure her that her weight has been stable in that is more important. She has already a dose of diuretics. The patient has been having some bruising primarily because of the compression stockings. This is typical specially with her anticoagulation and platelet dysfunction. The patient also has a cough chest congestion. She has chronic lung disease and COPD with chronic bronchitis explained to her that she will always make mucus. She responds well to the oxygen she is using more regularly with good response. The patient has been using her BiPAP. BiPAP therapy has been affecting beneficial although her AHI now is elevated up to 15. She is having some central apneas. I did check a blood gas in her pCO2 is 59 mm Hg. At this point she is feeling BiPAP. The patient has hypercarbic respiratory failure due to her COPD. This carries a poor prognosis and high risk for hospitalizations. Therefore we are going to switch over to a noninvasive ventilator, astral. This provide her with better gas exchange improved prognosis and decrease hospitalizations. I did talk to the [employer] that supplies with the BiPAP to switch over to the astral at this time. [facility], [facility] Medical History (Updated 12/17/23 @ 01:04 by Louie Ly MD) Leg pain Anemia Tachycardia DVT (deep venous thrombosis) COPD (chronic obstructive pulmonary disease) Compression fracture of body of thoracic vertebra ASD (atrial septal defect) Pleuritic chest pain History of COVID-19 Chronic anticoagulation Hypothyroidism GERD (gastroesophageal reflux disease) Hyperlipidemia Hypertension Factor 5 Leiden mutation, heterozygous History of non-ST elevation myocardial infarction (NSTEMI) Hypoxia Anxiety PTSD (post-traumatic stress disorder) Hemoptysis Dyspnea Tracheobronchitis CLARA positive Diverticulitis Allergic bronchitis (HFpEF) heart failure with preserved ejection fraction Subarachnoid bleed Insomnia Anti-phospholipid antibody syndrome Hypogammaglobulinemia Chronic respiratory failure Arterial insufficiency of lower extremity Complex regional pain syndrome i of right lower limb Post herpetic neuralgia Pulmonary hypertension Pericardial effusion Pulmonary emboli Pleural effusion Radiation fibrosis of lung Pneumonitis Pulmonary nodules KANDY treated with BiPAP Lung cancer Surgical History History of colonoscopy History of lung surgery History of tonsillectomy History of hysterectomy S/P mitral valve clip implantation History of cardiac cath Family History Sister No problems noted. Mother Cardiovascular disease Daughter Tachycardia Other KANDY (obstructive sleep apnea) Social History Household Members: None Housing: House Do you presently have visiting nurse or other home services: Yes Unable to assess alcohol history related to: Unknown Alcohol intake: former Comment: stand by assist with ambulation Patient Tobacco Use Status: Never used Tobacco Smoked in Last 30 Days: No Second Hand Smoke Exposure: No Use of substances other than those prescribed or required for medical reasons: No Advance Directives: Yes Advance Directives on File: Yes Advance Directives Date on File: 06/15/22 service: No Current occupational status: retired Review of Systems Const Denies chills, Reports daytime sleepiness, Reports fatigue, Denies fever(s), Denies frequent falls, Denies weakness, Denies weight gain and Denies weight loss ENT Denies change in voice and Denies dizziness Card Reports chest pain, Reports chest pain with activity, Reports rapid heart rate, Denies leg edema, Denies lightheadedness, Denies palpitations, Denies dyspnea, Reports dyspnea on exertion, Denies orthopnea and Denies other (loss of consciousness) Resp Reports cough, Reports pain on inspiration, Reports pain with cough, Denies dyspnea and Reports dyspnea on exertion GI Denies hematochezia and Denies change in stool character Musc Denies abnormal gait, Denies muscle weakness, Denies numbness, Denies radiating pain into limb and Denies tingling Skin/Breast Reports change in pigmentation Neuro Denies abnormal gait, Denies dizziness, Denies frequent falls, Denies numbness, Denies tingling and Denies weakness Endo Reports fatigue and Denies palpitations Physical Exam Vital Signs: Last Vital Signs Pulse 82 12/15/23 09:20 BP 134/60 12/15/23 09:20 Pulse Ox 98 12/15/23 09:20 Oxygen Delivery Method Room Air 12/15/23 09:20 BMI result Body Mass Index 23.8 Last Vital Signs Temp 97.7 F 06/20/22 08:00 Pulse 90 06/20/22 08:00 Resp 16 06/20/22 08:00 BP 137/60 06/20/22 08:00 Pulse Ox 93 06/20/22 08:00 O2 Del Method 06/20/22 08:00 O2 Flow Rate 2 06/20/22 08:00 FiO2 45 06/14/22 11:07 BMI result Body Mass Index 23.0 Const General: cooperative, comfortable, alert and awake Orientation/consciousness: patient oriented x3 HEENT Head: Yes atraumatic Eyes General: appearance normal, both eyes and all related structures Neck Neck: Yes trachea midline, Yes supple and Yes no JVD Chest Chest palpation & inspection: tenderness rib (right side) Resp Effort & Inspection: normal respiratory effort, no cough and No prolonged expiratory phase Auscultation: no rales, no rhonchi, no wheezes and diminished lung sounds Cardio Rate: regular rate Rhythm: regular rhythm Heart sounds: S1 normal heart sound present, S2 normal heart sound present and Abnormal heart opening sounds loud S2 GI Auscultation: normal bowel sounds Skin General skin exam: purpura and scars Neuro General: patient oriented x3 and no focal motor deficits Extrem General: Yes no clubbing, cyanosis or edema Results Reviewed Results Reviewed: RUN: 12/17/232056 PAGE 1 [facility] [address] [place] [id number] Television Antenna Installer: Alfredo Knight M.D. Specimen Inquiry Name: Jovana Malik Age/Sex: 78/F : 1945 Unit#: [id number] Attend Dr: Henry Kelly MD Re12/15/23 Status: DEP [facility] Disch: SPEC : [id number] JULIANA: 12/15/23 STATUS: COMP REQ : [id number] RECD: 12/15/[address]: Henry Kelly MD COMP: 12/15/23 ENTERED: 12/15/[address]: Caitlyn Bowie MD ORDERED: VBGS - POC Test Result Flag Reference VBG pH 7.47 H 7.32-7.43 VBG pCO2 59 mmHg VBG pO2 19 mmHg VBG BE 16.4 mmol/L VBG HCO3- 43 H 22-26 mmol/L VBG O2 % Sat 34.0 % END OF REPORT Assessment & Plan Assessment & Plan (1) Lung cancer: Code(s): C34.90 - Malignant neoplasm of unspecified part of unspecified bronchus or lung Category: Medical Qualifiers: Laterality: left Lung location: upper lobe of lung Qualified Code(s): C34.12 - Malignant neoplasm of upper lobe, left bronchus or lung (2) Pulmonary hypertension: Comment: severe based on RHC, moderate based on recent echo Code(s): I27.20 - Pulmonary hypertension, unspecified Category: Medical (3) Pulmonary nodules: Code(s): R91.8 - Other nonspecific abnormal finding of lung field Category: Medical (4) Chronic respiratory failure: Code(s): J96.10 - Chronic respiratory failure, unspecified whether with hypoxia or hypercapnia Category: Medical Qualifiers: Respiratory failure complication: hypoxia and hypercapnia Qualified Code(s): J96.11 - Chronic respiratory failure with hypoxia; J96.12 - Chronic respiratory failure with hypercapnia (5) KANDY treated with BiPAP: Code(s): G47.33 - Obstructive sleep apnea (adult) (pediatric) Category: Medical (6) Radiation fibrosis of lung: Code(s): J70.1 - Chronic and other pulmonary manifestations due to radiation Category: Medical (7) COPD (chronic obstructive pulmonary disease): Code(s): J44.9 - Chronic obstructive pulmonary disease, unspecified Category: Medical Qualifiers: COPD type: chronic bronchitis Chronic bronchitis type: simple Qualified Code(s): J41.0 - Simple chronic bronchitis (8) Diastolic CHF: Code(s): I50.30 - Unspecified diastolic (congestive) heart failure Category: Medical Qualifiers: Heart failure chronicity: chronic Qualified Code(s): I50.32 - Chronic diastolic (congestive) heart failure (9) (HFpEF) heart failure with preserved ejection fraction: Code(s): I50.30 - Unspecified diastolic (congestive) heart failure Category: Medical Qualifiers: Heart failure chronicity: chronic Qualified Code(s): I50.32 - Chronic diastolic (congestive) heart failure (10) Tachycardia: Code(s): R00.0 - Tachycardia, unspecified Category: Medical Plan prednisone 2.5 mg Ambien for sleep continue Advair ASHA as needed continue ASHA (xopenex) as needed CPT with acapella valve fluticasone Oxygen 2L/pulse with activity and sleep. POC Inogen G5 duiresis as tolerated Failed BIPAP at night with O2. AHI elevated and elevated PCO2. The patient has chronic hypercarbic respiratory failure due to her COPD. She carries apoor prognosis and hig risk for hospitalizations. The patient needs to start a non invasive ventilator to improve her gas exchange along with improving her prognosis and decrease her need for hospitalizations. We will request an Astral from her [employer]. bloodwok F/U 6-8 weeks Orders: Orders Basic Metabolic Panel 12/15/23 J41.0 - Simple chronic bronchitis Venous Blood Gas 12/15/23 J41.0 - Simple chronic bronchitis Coding Level of Care Code Est Pt Level 5 (38089) Diagnoses Malignant neoplasm of upper lobe of left lung C34.12 Laterality: left Lung location: upper lobe of lung Pulmonary hypertension I27.20 Pulmonary nodules R91.8 Chronic respiratory failure with hypoxia and hypercapnia J96.11; J96.12 Respiratory failure complication: hypoxia and hypercapnia KANDY treated with BiPAP G47.33 Radiation fibrosis of lung 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 Chronic heart failure with preserved ejection fraction I50.32 Heart failure chronicity: chronic Tachycardia R00.0 Time Spent (min) 45
== END 2023-12-15 09:52 | disposition home or self-care (01) ==
PROVIDERS: PCP Internal Medicine; Visit Provider Hospitalist
DX: C34.12 Malignant neoplasm of upper lobe, left bronchus or lung (principal); I27.20 Pulmonary hypertension, unspecified; R91.8 Other nonspecific abnormal finding of lung field; J96.11 Chronic respiratory failure with hypoxia; J96.12 Chronic respiratory failure with hypercapnia; G47.33 Obstructive sleep apnea (adult) (pediatric); J70.1 Chronic and other pulmonary manifestations due to radiation; J41.0 Simple chronic bronchitis; I50.32 Chronic diastolic (congestive) heart failure; R00.0 Tachycardia, unspecified
CPT/HCPCS: 99215

== ENCOUNTER 2023-12-16 21:50 | Emergency (ER) | payer MEDICARE, SELFPAY ==
[2023-12-16 22:00] VITALS: BP 155/71; PULSE 88; RESP 20; TEMP 37; O2SAT 98; BMI 23.0
--- OUTSIDE RECORDS SUMMARY | 2023-12-16 23:05 | XMS_ITS | Continuity of Care Document ---
Author Organization [facility] Address [address] [place] [address]- Care Team Providers Care Home Appraiser Name Role Phone Caitlyn Bowie MD Primary Care Physician Encounter [facility] [id number] Date(s): 10/16/23 - 11/15/23 [facility] [address] [place], [place] [address] Allergies, Adverse Reactions, Alerts [...] Care Team Personnel Name: Val Wynne Position: [facility] Onco RN Member Role: Primary Care Nurse Name: Shilpi Mattson Position: Reference Physician Member Role: Primary Care Nurse Address: Address: [address] [place] [address]- [place] Name: Toyin Doherty RN Position: [facility] RN Member Role: Primary Care Nurse Name: Eben Hernandez NP Position: [facility] Associate Professional Member Role: Lifetime Consulting Provider Address: Address: [address] [place] [address]- Name: Alejandrina Turner RN Position: [facility] RN Member Role: Primary Care Nurse Name: Zoraida Felix RN Position: [facility] ED RN W/OE and Tasks Member Role: Primary Care Nurse Name: Jaye Harley Position: [facility] [place] Applications Administrator Member Role: Consultant Technology Name: Daphne Hooker RN Position: [facility] RN Member Role: Primary Care Nurse Name: Caitlyn Bowie MD Position: [facility] Physician - Primary Care Member Role: PCP Address: Address: [address] [place] [address]- [place] Name: Kiki Abdi RN Position: [facility] RN Member Role: Primary Care Nurse Name: Marry Reza Position: [facility] RN Member Role: Primary Care Nurse Name: Veronica Hurst MA Position: [facility] JAY Office Staff Member Role: Lifetime Consulting Physician Name: Maddie Herrera RN Position: [facility] AMB Nurse Member Role: Primary Care Nurse Name: Yudith Herrera RN Position: [facility] Onco RN Member Role: Primary Care Nurse Name: Raegan Baptiste RN Position: [facility] RN Member Role: Primary Care Nurse Name: She Pool Position: [facility] RN Member Role: Primary Care Nurse Name: Kaila Latham RN Position: [facility] RN Member Role: Primary Care Nurse Name: Julio C Bahena Position: [facility] RN Member Role: Primary Care Nurse Name: Nasima Heredia RN Position: [facility] RN Member Role: Primary Care Nurse Name: Katherine Nixon PharmD Position: [facility] Associate Professional Member Role: Lifetime Consulting Provider Address: Address: [address] [place] [address] Name: Daphne Barton RN Position: [facility] RN Member Role: Primary Care Nurse Name: Katherine Long RN Position: [facility] RN Member Role: Primary Care Nurse Name: Norma Serrano RN Position: [facility] RN Member Role: Primary Care Nurse Name: Seven Kelly RN Position: [facility] ED RN W/OE and Tasks Member Role: Primary Care Nurse Name: Fani Perez RN Position: [facility] RN Member Role: Primary Care Nurse Name: Hattie Brewster RN Position: [facility] RN Member Role: Primary Care Nurse Name: Kelly Hernandez RN Position: [facility] RN Member Role: Primary Care Nurse Name: Pallavi Wylie LPN Position: [facility] RN Member Role: Primary Care Nurse Name: Parris Zuluaga RN Position: [facility] RN Member Role: Primary Care Nurse Care Team Related Persons Name: ZENAIDA FLORES Address: [place] [address] Name: TIA RIVERS Address: [place] [address] Name: JOHANN RETANA Address: [place], [place]
--- OUTSIDE RECORDS SUMMARY | 2023-12-16 23:06 | XMS_ITS | Continuity of Care Document ---
Author Organization [facility] Address [address] [place] [address]- Care Team Providers Care Charge Weigher Name Role Phone Brennan Burnett MD Primary Care Physician [facility]counter [facility] Date(s): 06/02/20 - 07/02/20 [facility] [address] [place] [address] Allergies, Adverse Reactions, Alerts [...] By Mouth, Daily, Dr. primo Renee at [facility], # 30 tablet, 0 Refills, Maintenance, 01/26/18 [...]
--- OUTSIDE RECORDS SUMMARY | 2023-12-16 23:07 | XMS_ITS | Continuity of Care Document ---
Author Organization [facility] Address [address] [place] [address]- Care Team Providers Care Support Services Rep Name Role Phone Caitlyn Bowie MD Primary Care Physician [facility]counter [facility] Date(s): 05/30/23 - 10/06/[address] [address] Discharge Disposition: A-D/C Home Attending Physician: Luis [...] 180 tablet, 2 Refills, Maintenance, 07/28/23 16:38:[address] [facility], [facility], [...] on: 04/05/17 Sex Note * Event Display: Cardiac Rehab Telemetry [...] Member Role: Primary Care Nurse Address: Address: [address] [place] [address]- Name: Toyin Doherty RN Position: S RN Member Role: Primary Care Nurse Name: Eben Hernandez NP Position: [facility] Associate Professional Member Role: Lifetime Consulting Provider Address: Address: [address] [place] [address]- [place] Name: Alejandrina Turner RN Position: [facility] RN Member Role: Primary Care Nurse Name: Zoraida Felix RN Position: [facility] ED RN W/OE and Tasks Member Role: Primary Care Nurse Name: Jaye Harley Position: [facility] Patient Care Manager Member Role: Remotely Piloted Vehicle Controller Name: Daphne Hooker RN Position: [facility] RN Member Role: Primary Care Nurse Name: Caitlyn Bowie MD Position: [facility] Physician - Primary Care Member Role: PCP Address: Address: [address] [place] [address]- Name: Kiki Abdi RN Position: [facility] RN Member Role: Primary Care Nurse Name: Marry Reza Position: [facility] RN Member Role: Primary Care Nurse Name: Veronica Hurst MA Position: [facility] SALLY MA Member Role: Lifetime Consulting Physician Name: Maddie Herrera RN Position: [facility] AMB Nurse Member Role: Primary Care Nurse Name: Yudith Herrera RN Position: [facility] Onco RN Member [...] Care Nurse Name: Katherine Nixon PharmD Position: [facility] Associate Professional Member Role: Lifetime Consulting Provider Address: Address: [address] [place] [address]- [place] Name: Daphne Barton RN Position: [facility] RN Member Role: Primary Care Nurse Name: Katherine Long RN Position: [facility] RN Member Role: Primary Care Nurse Name: Norma Serrano RN Position: [facility] RN Member Role: Primary Care Nurse Name: Seven Kelly RN Position: [facility] MADELINE RN W/OE and Tasks Member Role: Primary Care Nurse Name: Fani Perez RN Position: [facility] RN Member Role: Primary Care Nurse Name: Hattie Brewster RN Position: S RN Member Role: Primary Care Nurse Name: Kelly Hernandez RN Position: [facility] RN Member Role: Primary Care Nurse Name: Pallavi Wylie LPN Position: [facility] RN Member Role: Primary Care Nurse Name: Parris Zuluaga RN Position: [facility] RN Member Role: Primary Care Nurse Care Team Related Persons Name: MARK ZENAIDA Address: [place] [address] Name: TIA RIVERS Address: [place] [address] Name: JOHANN RETANA Address: [place] [address]
--- OUTSIDE RECORDS SUMMARY | 2023-12-16 23:07 | XMS_ITS | Continuity of Care Document ---
Author Organization [facility] Address [address] [place] [address]- Care Team Providers Care Licensed Acupuncturist Name Role Phone Caitlyn Bowie MD Primary Care Physician Encounter [facility] Date(s): 11/14/23 - 12/14/23 [facility] [address] [place] [address]- [place] Allergies, Adverse Reactions, Alerts Substance Reaction Severity Status ciprofloxacin Active erythromycin Active penicillin 1 Active vancomycin Active ipratropium Active barium sulfate Active sulfa drugs Active gentamicin Active clindamycin throat tightening Active busPIRone Feeling of throat ti ghtness Headache Dizziness Active morphine Active iodinated radiocontrast dyes Active Novocain Active Biaxin Active Voltaren Active Zithromax Active [...] Role: Primary Care Nurse Address: Address: [address] [place] [address]- Name: Toyin Doherty RN Position[facility] RN Member Role: Primary Care Nurse Name: Eben Hernandez NP Position: [facility] Associate Professional Member Role: Lifetime Consulting Provider Address: Address: [address] [place] [address]- Name: Alejandrina Turner RN Position: [facility] RN Member Role: Primary Care Nurse Name: Zoraida Felix RN Position: [facility] ED RN W/OE and Tasks Member Role: Primary Care Nurse Name: Jaye Harley Position: [facility] [place] Advertising Material Distributor Member Role: Computer Forensics Technician Name: Daphne Hooker RN Position: [facility] RN Member Role: Primary Care Nurse Name: Caitlyn Bowie MD Position: [facility] Physician - Primary Care Member Role: PCP Address: Address: [address] [place] [address]- Name: Kiki Abdi RN Position: [facility] RN Member Role: Primary Care Nurse Name: Marry Reza Position: [facility] RN Member Role: Primary Care Nurse Name: Veronica Hurst [place] Position: [facility] JAY Office Staff Member Role: Lifetime Consulting Physician Name: Maddie Herrera RN Position: [facility] AMB Nurse Member Role: Primary Care Nurse Name: Javier RNYudith Position: [facility] Onco RN Member Role: [...] Care Nurse Name: Katherine Nixon PharmD Position: [facility] Associate Professional Member Role: Lifetime Consulting Provider Address: Address: [address] [place] [address] Name: Daphne Barton RN Position[facility] RN Member Role: Primary Care Nurse Name: Katherine Long RN Position: [facility] RN Member Role: Primary Care Nurse Name: Norma Serrano RN Position: [facility] RN Member Role: Primary Care Nurse Name: Seven Kelly RN Position: [facility] ED RN W/OE and Tasks Member Role: Primary Care Nurse Name: Fani Perez RN Position: [facility] RN Member Role: Primary Care Nurse Name: Hattie Brewster RN Position: [facility] RN Member Role: Primary Care Nurse Name: Kelly Hernandez RN Position: [facility] RN Member Role: Primary Care Nurse Name: Pallavi Wylie LPN Position: [facility] RN Member Role: Primary Care Nurse Name: Parris Zuluaga RN Position: [facility] RN Member Role: Primary Care Nurse Care Team Related Persons Name: ZENAIDA FLORES Address: [place], [place] Name: TIA RIVERS Address: [place] [address] Name: JOHANN RETANA Address: [place], [place]
--- OUTSIDE RECORDS SUMMARY | 2023-12-16 23:13 | XMS_ITS | Continuity of Care Document ---
Author Organization [facility] Address [address] [place] [address]- Care Team Providers Care Security Incident Handler Name Role Phone Caitlyn Bowie MD Primary Care Physician [facility]counter [facility] Date(s): 10/07/23 - 11/06/23 [facility] [address] [place] [address]- Attending Physician: Admtr, [id number] Admitting Physician: Admtr, [...] 2 times a day, for 5 days, take with food, # 10 tablet, 0 Refills, Acute 11/07/23 11:34:00 EDT, 11/02/23 11:34:00 EDT, Tablet, [facility], Partial fill upon patient request if the prescription is for a schedu... Start Date: 11/02/23 Stop Date: 11/07/23 Status: Ordered diazepam 5 mg oral tablet [...] Role: Primary Care Nurse Address: Address: [address] [place] [address]- Name: Toyin Doherty RN Position: S RN Member Role: Primary Care Nurse Name: Eben Hernandez NP Position: [facility] Associate Professional Member Role: Lifetime Consulting Provider Address: Address: [address] [place] [address]- Name: Alejandrina Turner RN Position: S RN Member Role: Primary Care Nurse Name: Zoraida Felix RN Position: [facility] ED RN W/OE and Tasks Member Role: Primary Care Nurse Name: Jaye Harley Position: [facility] [place] Manager Solution Member Role: Chief Solution Architect Name: Daphne Hooker RN Position: [facility] RN Member Role: Primary Care Nurse Name: Caitlyn Bowie MD Position: [facility] Physician - Primary Care Member Role: PCP Address: Address: [address] [place] [address]- Name: Kiki Abdi RN Position: [facility] RN Member Role: Primary Care Nurse Name: Marry Reza Position: [facility] RN Member Role: Primary Care Nurse Name: Veronica Hurst MA Position: [facility] SALLY MA Member Role: Lifetime Consulting Physician Name: Maddie Herrera RN Position: [facility] AMB Nurse Member Role: Primary Care Nurse Name: Yudith Herrera RN Position: [facility] Onco RN Member Role: [...] Care Nurse Name: Katherine Nixon PharmD Position: [facility] Associate Professional Member Role: Lifetime Consulting Provider Address: Address: [address] [place] [address]- Name: Daphne Barton RN Position: [facility] RN Member Role: Primary Care Nurse Name: Katherine Long RN Position: [facility] RN Member Role: Primary Care Nurse Name: Norma Serrano RN Position: [facility] RN Member Role: Primary Care Nurse Name: Seven Kelly RN Position: [facility] ED RN W/OE and Tasks Member Role: Primary Care Nurse Name: Fani Perez RN Position: [facility] RN Member Role: Primary Care Nurse Name: Hattie Brewster RN Position: [facility] RN Member Role: Primary Care Nurse Name: Kelly Hernandez RN Position: [facility] RN Member Role: Primary Care Nurse Name: Pallavi Wylie LPN Position: [facility] RN Member Role: Primary Care Nurse Name: Parris Zuluaga RN Position: [facility] RN Member Role: Primary Care Nurse Care Team Related Persons Name: ZENAIDA FLORES Address: [place] [address] Name: TIA RIVERS Address: [place] [address] Name: JOHANN RETANA Address: [place] [address]
--- OUTSIDE RECORDS SUMMARY | 2023-12-16 23:14 | XMS_ITS | Continuity of Care Document ---
Author Organization [facility] Address [address] [place] [address]- Care Team Providers Care Wharf Tally Clerk Name Role Phone Caitlyn Bowie MD Primary Care Physician Encounter [facility] Date(s): 09/18/23 - 10/18/23 [facility] [address] [place], [place] [address] Allergies, Adverse Reactions, Alerts Substance Reaction Severity Status ciprofloxacin Active clindamycin throat tightening Active penicillin 1 Active busPIRone Feeling of throat ti ghtness Headache Dizziness Active barium sulfate Active sulfa drugs Active gentamicin Active erythromycin Active vancomycin Active ipratropium Active morphine Active Voltaren Active Biaxin Active iodinated radiocontrast dyes Active Zithromax Active [...] Care Team Personnel Name: Val Wynne Position: [facility] Onco RN Member Role: Primary Care Nurse Name: Karen Pittman RN Position: [facility] RN Member Role: Primary Care Nurse Name: Shilpi Mattson Position: Reference Physician Member Role: Primary Care Nurse Address: Address: [address] [place] [id number] Name: Toyin Doherty RN Position: [facility] RN Member Role: Primary Care Nurse Name: Eben Hernandez NP Position: [facility] Associate Professional Member Role: Lifetime Consulting Provider Address: Address: [address] [place] [address]- Name: Alejandrina Turner RN Position: [facility] RN Member Role: Primary Care Nurse Name: Zoraida Felix RN Position: [facility] ED RN W/OE and Tasks Member Role: Primary Care Nurse Name: Jaye Harley Position: [facility] Manager Wealth Management Member Role: Substation Operator Chief Name: Daphne Hooker RN Position: [facility] RN Member Role: Primary Care Nurse Name: Caitlyn Bwoie MD Position: [facility] Physician - Primary Care Member Role: PCP Address: Address: [address] [place] [address]- Name: Kiki Abdi RN Position: [facility] RN Member Role: Primary Care Nurse Name: Marry Reza Position: [facility] RN Member Role: Primary Care Nurse Name: Veronica Hurst MA Position: [facility] AMB [place] Member Role: Lifetime Consulting Physician Name: Maddie Herrera RN Position: [facility] AMB Nurse Member Role: Primary Care Nurse Name: Yudith Herrera RN Position: [facility] Onco RN Member Role: Primary Care Nurse Name: Raegan Baptiste RN Position: [facility] RN Member Role: Primary Care Nurse Name: She Pool Position: [facility] RN Member Role: Primary Care Nurse Name: Kaila Latham RN Position: [facility] RN Member Role: Primary Care Nurse Name: Julio C Bahena Position: [facility] RN Member Role: Primary Care Nurse Name: Nasima Heredia RN Position: [facility] RN Member Role: Primary Care Nurse Name: Katherine Nixon PharmD Position: [facility] Associate Professional Member Role: Lifetime Consulting Provider Address: Address: [address] [place] [address]- Name: Daphne Barton RN Position: [facility] RN Member Role: Primary Care Nurse Name: Katherine Long RN Position: [facility] RN Member Role: Primary Care Nurse Name: Norma Serrano RN Position: [facility] RN Member Role: Primary Care Nurse Name: Seven Kelly RN Position: [facility] ED RN W/OE and Tasks Member Role: Primary Care Nurse Name: Fani Perez RN Position: [facility] RN Member Role: Primary Care Nurse Name: Hattie Brewster RN Position: [facility] RN Member Role: Primary Care Nurse Name: Kelly Hernandez RN Position: [facility] RN Member Role: Primary Care Nurse Name: Pallavi Wylie LPN Position: [facility] RN Member Role: Primary Care Nurse Name: Parris Zuluaga RN Position: [facility] RN Member Role: Primary Care Nurse Care Team Related Persons Name: ZENAIDA FLORES Address: [place] [address] Name: TIA RIVERS Address: [place] [address] Name: JOHANN RETANA Address: [place] [address]
--- OUTSIDE RECORDS SUMMARY | 2023-12-16 23:14 | XMS_ITS | Continuity of Care Document ---
Author Organization [facility] Address [address] [place] [address]- Care Team Providers Care Hoop Maker Helper Machine Name Role Phone Caitlyn Bowie MD Primary Care Physician Encounter [facility] Date(s): 09/29/23 - 10/29/23 [facility] [address] [place], [place] [address] Allergies, Adverse Reactions, Alerts Substance [...] Member Role: Primary Care Nurse Address: Address: [address] [place] [address]- Name: Toyin Doherty RN Position: [facility] RN Member Role: Primary Care Nurse Name: Eben Hernandez NP Position: [facility] Associate Professional Member Role: Lifetime Consulting Provider Address: Address: [address] [place] [address]- Name: Alejandrina Turner RN Position: [facility] RN Member Role: Primary Care Nurse Name: Zoraida Felix RN Position: [facility] ED RN W/OE and Tasks Member Role: Primary Care Nurse Name: Jaye Harley Position: [facility] Manager Hydraulic Member Role: Public Health Nurse Name: Daphne Hooker RN Position: [facility] RN Member Role: Primary Care Nurse Name: Caitlyn Bowie MD Position: [facility] Physician - Primary Care Member Role: PCP Address: Address: [address] [place] [address]- Name: Kiki Abdi RN Position: [facility] RN Member Role: Primary Care Nurse Name: Marry Reza Position: [facility] RN Member Role: Primary Care Nurse Name: Veronica Hurst [place] Position: [facility] AMB MA Member Role: Lifetime Consulting Physician Name: Maddie Herrera RN Position: [facility] AMB Nurse Member Role: Primary Care Nurse Name: Yudith Herrera RN Position: [facility] Onco RN [...] Care Nurse Name: Katherine Nixon PharmD Position: [facility] Associate Professional Member Role: Lifetime Consulting Provider Address: Address: [address] [place] [address]- Name: Daphne Barton RN Position: [facility] RN Member Role: Primary Care Nurse Name: Katherine Long RN Position: [facility] RN Member Role: Primary Care Nurse Name: Norma Serrano RN Position: [facility] RN Member Role: Primary Care Nurse Name: Seven Kelly RN Position: [facility] ED RN [...] Team Related Persons Name: ZENAIDA FLORES Address: [place] [address] Name: TIA RIVERS Address: [place] [address] Name: JOHANN RETANA Address: [place] [address]
--- OUTSIDE RECORDS SUMMARY | 2023-12-16 23:17 | XMS_ITS | Continuity of Care Document ---
Author Organization [facility] Address [address] [place] [address]- Care Team Providers Care Admissions Counselor Name Role Phone Caitlyn Bowie MD Primary Care Physician [phone] Encounter [facility] Date(s): 09/26/23 - 10/26/23 [facility] [address] [place], [place] [address] Allergies, Adverse Reactions, Alerts Substance [...] Care Nurse Name: Karen Pittman RN Position: [facility] RN Member Role: Primary Care Nurse Name: Shilpi Mattson Position: Reference Physician Member Role: Primary Care Nurse Address: Address: [address] [place] [address] Name: Toyin Doherty RN Position: [facility] RN Member Role: Primary Care Nurse Name: Eben Hernandez NP Position: [facility] Associate Professional Member Role: Lifetime Consulting Provider Address: Address: [address] [place] [address]- Name: Alejandrina Turner RN Position: [facility] RN Member Role: Primary Care Nurse Name: Zoraida Felix RN Position: [facility] ED RN W/OE and Tasks Member Role: Primary Care Nurse Name: Jaye Harley Position: [facility] Poultry Husbandry Worker Member Role: Director Of Audiology Name: Daphne Hooker RN Position: [facility] RN Member Role: Primary Care Nurse Name: Caitlyn Bowie MD Position: [facility] Physician - Primary Care Member Role: PCP Address: Address: [address] [place] [address]- Name: Kiki Abdi RN Position: [facility] RN Member Role: Primary Care Nurse Name: Marry Reza Position: [facility] RN Member Role: Primary Care Nurse Name: Veronica Hurst MA Position: [facility] AMB [place] Member Role: Lifetime Consulting [...] Role: Lifetime Consulting Provider Address: Address: [address] [place] [address]- Name: Daphne Barton RN [facility] Team Related Persons Name: ZENAIDA FLORES Address: [place] [address] Name: TIA RIVERS Address: [place] [address] Name: JOHANN RETANA Address: [place] [address]
--- OUTSIDE RECORDS SUMMARY | 2023-12-16 23:18 | XMS_ITS | Continuity of Care Document ---
Author Organization [facility] Address [address] [place] [address]- Care Team Providers Care Senior Business Manager Name Role Phone Caitlyn Bowie MD Primary Care Physician Encounter [facility] Date(s): 10/06/23 - 11/05/23 [facility] [address] [place], [place] [address] Allergies, Adverse Reactions, Alerts [...] 180 tablet, 2 Refills, Maintenance, 07/28/23 16:38:00 [facility], [facility], Partial fill [...] Care Team Personnel Name: Val Wynne Position: [facility] Onco RN Member Role: Primary Care Nurse Name: Karen Pittman RN Position: [facility] RN Member Role: Primary Care Nurse Name: Shilpi Mattson Position: Reference Physician Member Role: Primary Care Nurse Address: Address: [address] [place] [address]- Name: Toyin Doherty RN Position: S RN Member Role: Primary Care Nurse Name: Eben Hernandez NP Position: [facility] Associate Professional Member Role: Lifetime Consulting Provider Address: Address: [address] [place] [address]- Name: Alejandrina Turner RN Position: S RN Member Role: Primary Care Nurse Name: Zoraida Felix RN Position: [facility] ED RN W/OE and Tasks Member Role: Primary Care Nurse Name: Jaye Harley Position: [facility] [place] Hot Mill Operator Member Role: Orthopedic Dentist Name: Daphne Hooker RN Position: [facility] RN Member Role: Primary Care Nurse Name: Caitlyn Bowie MD Position: [facility] Physician - Primary Care Member Role: PCP Address: Address: [address] [place] [address]- Name: Kiki Abdi RN Position: [facility] RN Member Role: Primary Care Nurse Name: Marry Reza Position: [facility] RN Member Role: Primary Care Nurse Name: Veronica Hurst MA Position: [facility] SALLY MA Member Role: Lifetime Consulting Physician Name: Maddie Herrera RN Position: [facility] AMB Nurse Member Role: Primary Care Nurse Name: Yudith Herrera RN Position: [facility] Onco RN Member Role: Primary Care Nurse Name: Raegan Baptiste RN Position: [facility] RN Member Role: Primary Care Nurse Name: She Pool Position: [facility] RN Member Role: Primary Care Nurse Name: Kaila Latham RN Position: [facility] RN Member Role: Primary Care Nurse Name: Julio C Bahena Position: [facility] RN Member Role: Primary Care Nurse Name: Nasima Heredia RN Position: [facility] RN Member Role: Primary Care Nurse Name: Katherine Nixon PharmD Position: [facility] Associate Professional Member Role: Lifetime Consulting Provider Address: Address: [address] [place] [address]- Name: Daphne Barton RN Position: [facility] RN Member Role: Primary Care Nurse Name: Katherine Long RN Position: [facility] RN Member Role: Primary Care Nurse Name: Norma Serrano RN Position: [facility] RN Member Role: Primary Care Nurse Name: Seven Kelly RN Position: [facility] ED RN W/OE and Tasks Member Role: Primary Care Nurse Name: Fani Perez RN Position: [facility] RN Member Role: Primary Care Nurse Name: Hattie Brewster RN Position: [facility] RN Member Role: Primary Care Nurse Name: Kelly Hernandez RN Position: [facility] RN Member Role: Primary Care Nurse Name: Pallavi Wylie LPN Position: [facility] RN Member Role: Primary Care Nurse Name: Parris Zuluaga RN Position: [facility] RN Member Role: Primary Care Nurse Care Team Related Persons Name: ZENAIDA FLORSE Address: [place] [address] Name: TIA RIVERS Address: [place] [address] Name: JOHANN RETANA Address: [place] [address]
--- OUTSIDE RECORDS SUMMARY | 2023-12-16 23:18 | XMS_ITS | Continuity of Care Document ---
Author Organization [facility] Address [address] [place] [address]- Care Team Providers Care Veterans' Coordinator Name Role Phone Caitlyn Bowie MD Primary Care Physician [phone] Encounter [facility] Date(s): 09/20/23 - 10/20/23 [facility] [address] [place], [place] [address] Allergies, Adverse Reactions, Alerts Substance Reaction Severity Status ciprofloxacin Active busPIRone Feeling of throat ti ghtness Headache Dizziness Active barium sulfate Active sulfa drugs Active gentamicin Active clindamycin throat tightening Active erythromycin Active penicillin 1 Active vancomycin Active ipratropium Active morphine Active Biaxin Active iodinated radiocontrast dyes Active [...] Member Role: Primary Care Nurse Address: Address: [address] [place] [address] Name: Toyin Doherty [facility] RN Member Role: Primary Care Nurse Name: Eben Hernandez NP Position: [facility] Associate Professional Member Role: Lifetime Consulting Provider Address: Address: [address] [place] [address]- Name: Alejandrina Turner RN Position[facility] RN Member Role: Primary Care Nurse Name: Zoraida Felix RN Position: [facility] ED RN W/OE and Tasks Member Role: Primary Care Nurse Name: Jaye Harley Position: [facility] Administrative Office Manager Member Role: Hazard Waste Handler Name: Daphne Hooker RN [facility] RN Member Role: Primary Care Nurse Name: Caitlyn Bowie MD Position: [facility] Physician - Primary Care Member Role: PCP Address: Address: [address] [place] [address]- Name: Kiki Abdi RN Position: [facility] RN Member Role: Primary Care Nurse Name: Marry Reza Position: [facility] RN Member Role: Primary Care Nurse Name: Veronica Hurst MA Position: [facility] AMB [place] Member Role: Lifetime Consulting Physician Name: Maddie Herrera RN Position: [facility] AMB Nurse Member Role: Primary Care Nurse Name: Yudith Herrera RN Position: [facility] Onco RN Member [...] Role: Lifetime Consulting Provider Address: Address: [address] [place] [address]- Name: Daphne Barton RN Position: [facility] [...] Team Related Persons Name: ZENAIDA FLORES Address: [place] [address] Name: TIA RIVERS Address: [place] [address] Name: JOHANN RETANA Address: [place] [address]
--- OUTSIDE RECORDS SUMMARY | 2023-12-16 23:22 | XMS_ITS | Continuity of Care Document ---
Author Organization [facility] Address [address] [place] [address]- Care Team Providers Care Corn Chip Maker Name Role Phone Caitlyn Bowie MD Primary Care Physician Encounter [facility] Date(s): 10/20/23 - 11/19/23 [facility] [address] [place], [place] [address] Allergies, Adverse Reactions, Alerts Substance Reaction Severity Status ciprofloxacin Active clindamycin throat tightening Active penicillin 1 Active barium sulfate Active iodinated radiocontrast dyes Active gentamicin Active erythromycin Active vancomycin Active busPIRone Feeling of throat ti ghtness Headache Dizziness Active ipratropium Active morphine Active sulfa drugs Active Voltaren Active Flagyl Active Biaxin Active Zithromax Active Novocain Active Gastrografin Active Avelox Active [...] Care Team Personnel Name: Val Wynne Position: [facility] Onco RN Member Role: Primary Care Nurse Name: Shilpi Mattson Position: Reference Physician Member Role: Primary Care Nurse Address: Address: [address] [place] [address]- [place] Name: Toyin Doherty RN Position: [facility] RN Member Role: Primary Care Nurse Name: Eben Hernandez NP Position: [facility] Associate Professional Member Role: Lifetime Consulting Provider Address: Address: [address] [place] [address]- Name: Alejandrina Turner RN Position: [facility] RN Member Role: Primary Care Nurse Name: Zoraida Felix RN Position: [facility] ED RN W/OE and Tasks Member Role: Primary Care Nurse Name: Jaye Harley Position: [facility] [place] Managed Care Nurse Member Role: Sales Exhibitor Name: Daphne Hooker RN Position: [facility] RN Member Role: Primary Care Nurse Name: Caitlyn Bowie MD Position: [facility] Physician - Primary Care Member Role: PCP Address: Address: [address] [place] [address]- [place] Name: Kiki Abdi RN Position: [facility] RN Member Role: Primary Care Nurse Name: Marry Reza Position: [facility] RN Member Role: Primary Care Nurse Name: Veronica Hurst MA Position: [facility] Office Staff Member Role: Lifetime Consulting Physician Name: Maddie Herrera RN Position: [facility] AMB Nurse Member Role: Primary Care Nurse Name: Yudith Herrera RN Position: [facility] Onco RN Member Role: Primary Care Nurse Name: Raegan Baptiste RN Position: [facility] RN Member Role: Primary Care Nurse Name: She Pool Position: [facility] RN Member Role: Primary Care Nurse Name: Kaila Latham RN Position: [facility] RN Member Role: Primary Care Nurse Name: Julio C Bahena Position: [facility] RN Member Role: Primary Care Nurse Name: Nasima Heredia RN Position: [facility] RN Member Role: Primary Care Nurse Name: Katherine Nixon PharmD Position: [facility] Associate Professional Member Role: Lifetime Consulting Provider Address: Address: [address] [place] [address] Name: Daphne Barton RN Position: [facility] RN Member Role: Primary Care Nurse Name: Katherine Long RN Position: [facility] RN Member Role: Primary Care Nurse Name: Norma Serrano RN Position: [facility] RN Member Role: Primary Care Nurse Name: Seven Kelly RN Position: [facility] ED RN W/OE and Tasks Member Role: Primary Care Nurse Name: Fani Perez RN Position: [facility] RN Member Role: Primary Care Nurse Name: Hattie Brewster RN Position: [facility] RN Member Role: Primary Care Nurse Name: Kelly Hernandez RN Position: [facility] RN Member Role: Primary Care Nurse Name: Pallavi Wylie LPN Position: [facility] RN Member Role: Primary Care Nurse Name: Parris Zuluaga RN Position: [facility] RN Member Role: Primary Care Nurse Care Team Related Persons Name: ZENAIDA FLORES Address: [place] [address] Name: TIA RIVERS Address: [place] [address] Name: JOHANN RETANA Address: [place], [place]
--- OUTSIDE RECORDS SUMMARY | 2023-12-16 23:23 | XMS_ITS | Continuity of Care Document ---
Author Organization [facility] ter Address [address] [place] [address]- Care Team Providers Care Travel Administrator Name Role Phone Caitlyn Bowie MD Primary Care Physician [phone] Encounter [facility] Date(s): 10/31/23 - 11/01/[address] [address]- Discharge Disposition: A-D/C Home Attending Physician: Evita Daigle DO Admitting Physician: Evita Daigle DO Referring Physician: Not on Staff, Referring [...] 180 tablet, 2 Refills, Maintenance, 07/28/23 16:38:00 [facility], [facility], [...] Exam Date Time Procedure Performing Provider Status 11/01/23 5:42 AM US Doppler Ext Lower Venous Bilat Donell Chao; Da (Verified) Notes: (US Doppler Ext Lower Venous Bilat) Reason For Exam: Pain in limb;Other: RESULT: US Doppler Ext Lower Venous Bilat US Doppler Ext Lower Venous Bilat HX OF PRESENT ILLNESS: pt c o L lung pain SOB x 1 week, pain free now, reports intermittent pain. RBundle branch block.; Reason: Pain in limb; Clinical Question(s): Thrombosis COMPARISON: None IMAGING TECHNIQUE: [...] evidence of thrombosis. OTHER FINDINGS: None. IMPRESSION: No evidence of deep venous thrombosis. I have personally reviewed the images and I agree with this report. WSN: [id number] Ordering Physician: Evita Daigle Dictated By: Ale Kaminski MD Dictated Date/Time: 11/01/23 7:34 am Reviewed By: Darlin Bourgeois MD Signed By: Darlin Bourgeois MD Signed Date/Time: 11/01/23 7:39 am Transcribed By: MART Transcribed Date/Time: 11/01/23 6:09 am * Exam Date Time Procedure Performing Provider Status 10/31/23 10:[address] Angio Chest Tressa Royal; Auth ( Verified) Notes: (CT Angio Chest) Reason For Exam: PE suspected, Intermediate prob, positive D-dimer,;Other: RESULT: CT Angio Chest CT Angio Chest INDICATION: Hx of Present Illness: pt c o L lung pain SOB x 1 week, pain free now, reports intermittent pain. R Bundle branch block.; Reason: Other:; PE suspected, Intermediate prob, positive D-dimer,; Clinical Question(s): Pulmonary Embolism; Order Comment: TECHNIQUE: Spiral CTA of the chest was performed after rapid IV contrast administration without cardiac gating, triggered by an CELESTINA on the main pulmonary artery. Images are formatted in multiple planes using 2-D multiplanar and 3-D maximum intensity projection. 75 cc of Omnipaque 300 was administered intravenously. Weight-based protocol using automatic tube modulation was used to optimize exposure parameters. CTDIvol Body: 7.60 mGy, DLP Body: 327 mGy*cm. COMPARISONS: 04/19/2023. ANGIOGRAPHIC FINDINGS: No pulmonary embolism to the subsegmental level. Mildly dilated similar to prior study. No acute aortic abnormality seen on this study performed without cardiac gating. NON-ANGIOGRAPHIC FINDINGS: Slot Machine Key Person View Findings, Lines and Tubes: None. Trachea and Airways: Patent without evidence of tracheal or endobronchial lesion. Lungs and Pleura: Previously reported right middle lobe consolidation has resolved.. There is minimal chronic atelectasis at both lung bases. Post partial left lower lobectomy. Small left pleural effusion with associated atelectasis similar to prior. No pneumothorax. Mediastinum and artemio: No mass or hematoma. No mediastinal or hilar lymphadenopathy. No esophageal abnormality. Normal thyroid. Heart: Mild cardiomegaly. No pericardial effusion. Mild coronary artery calcification. Chest Wall Soft Tissues: Normal. Diaphragm and upper abdomen: No significant abnormality. Bones: No acute abnormality. Moderate to severe disc space narrowing in the mid thoracic spine resulting in kyphosis, unchanged IMPRESSION: No evidence of pulmonary embolism. Status post partial left lower lobectomy with small chronic left pleural effusion and adjacent lower lobe atelectasis is essentially identical to 04/19/2023. WSN: [id number] Ordering Physician: Dante Suh Dictated By: Andre Damon MD Dictated Date/Time: 10/31/23 11:06 p Reviewed By: Andre Damon MD Signed By: Andre Damon MD Signed Date/Time: 10/31/23 11:06 pm Transcribed By: MART Transcribed Date/Time: 10/31/23 10:57 pm Vital Signs Most recent to oldest [Reference Range]: 1 2 3 Height 158 cm (11/01/23 3:06 AM) 158 cm (10/31/23 8:58 PM) Weight 59 kg (11/01/23 3:06 AM) 59 kg (10/31/23 8:58 PM) Oxygen Saturation [94-100 %] 100 % (11/01/23 6:45 AM) 100 % (11/01/23 4:48 AM) 100 % (11/01/23 3:06 AM) Pulse Rate [55-90 bpm] 80 bpm (11/01/23 6:45 AM) 77 bpm (11/01/23 4:48 AM) 90 bpm (11/01/23 3:06 AM) Body Mass Index [18.5-24.99 kg/m2] 23.63 kg/m2 (11/01/23 3:06 AM) Blood Pressure [90-138/55-84 mm Hg] 125/81mm Hg (11/01/23 6:45 AM) 101/60mm Hg (11/01/23 4:48 AM) 132/94mm Hg (11/01/23 3:06 AM) Respiratory Rate [16-30 br/min] 19 br/min (11/01/23 6:45 AM) 18 br/min (11/01/23 4:48 AM) 24 br/min (11/01/23 3:06 AM) Temperature [96.8-100.4 DegF] 98.0 DegF (11/01/23 6:45 AM) 97.7 DegF (11/01/23 3:06 AM) 98.7 DegF (10/31/23 8:58 PM) Liters per Minute 2 L/min (11/01/23 6:45 AM) 2 L/min (11/01/23 4:48 AM) 2 L/min (11/01/23 3:06 AM) Mode of Delivery (Oxygen) Nasal cannula (11/01/23 6:45 AM) Nasal cannula (11/01/23 4:48 AM) Nasal cannula (11/01/23 3:06 AM) Blood pressure sites Arm, left (11/01/23 4:48 AM) Arm, left (11/01/23 3:06 AM) Arm, right (10/31/23 8:58 PM) Temperature Route Oral (11/01/23 3:06 AM) Oral (10/31/23 8:58 PM) Dry Weight 59 kg (11/01/23 3:06 AM) 59 kg (10/31/23 8:58 PM) Social History Social History Type Response Smoking Status Never smoker; Tobacc o user in household: No entered on: 04/05/17 Sex EKG study * Event Display: ECG 12-Lead Authored Date: Please click on pdf link to open report * Event Display: ECG 12-Lead Authored Date: Ventricular Rate: 91 BPM Atrial Rate: 91 BPM P-R Interval: 174 ms QRS Duration: 132 ms Q-T Interval: 400 ms QTC Calculation(Bazett): 492 ms P [place]: 74 degrees R [place]: -55 degrees T [place]: 62 degrees Normal sinus rhythm Right bundle branch block Left anterior fascicular block Bifascicular block Minimal voltage criteria for LVH, may be normal variant ( R in aVL ) Abnormal ECG When compared with ECG of 28-SEP-2023 11:58, No significant change was found Confirmed by KENYA SHARMA MD ([id number]) on 11/01/2023 8:10:02 AM [place]: KENYA SHARMA MD Note * Evita Daigle DO: PERFORM, SIGN, VERIFY Event Display: Patient Education Handout Authored Date: * Evita Daigle DO: PERFORM Event Display: Patient Education Leaflets Authored Date: [id number] Bronchitis, No Antibiotics (Adult) ?? [id number] Bronchitis, No Antibiotics (Adult) Bronchitis is inflammation [...] from secondhand smoke. ??? You may use jamy-ajh-zxhofwt medicine to control fever or pain. Or [...] low. A light diet is fine. ??? Iogt-uzn-sbnutlt cough, cold, and sore-throat medicines will not [...] doom ?? Last Reviewed Date: 2021 ?? 1022-1640 [employer]. All rights reserved. This information is not [...] Nurse Address: Address: [address] [place] [address]- [place] Name: Toyin Doherty RN Position: [facility] RN Member Role: Primary Care Nurse Name: Eben Hernandez NP Position: [facility] Associate Professional Member Role: Lifetime Consulting Provider Address: Address: [address] [place] [address]- [place] Name: Alejandrina Turner RN Position: [facility] RN Member Role: Primary Care Nurse Name: Zoraida Felix RN Position: [facility] ED RN W/OE and Tasks Member Role: Primary Care Nurse Name: Jaye Harley Position: [facility] [place] Livestock Laborer Member Role: Broadcast Operations Technician Name: Daphne Hooker RN Position: [facility] RN Member Role: Primary Care Nurse Name: Caitlyn Bowie MD Position: [facility] Physician - Primary Care Member Role: PCP Address: Address: [address] [place] [address]- [place] Name: Kiki Abdi RN Position: [facility] RN Member Role: Primary Care Nurse Name: Marry Reza Position: [facility] RN Member Role: Primary Care Nurse Name: Veronica Hurst MA Position: [facility] SALLY [place] Member Role: Lifetime Consulting Physician Name: Maddie Herrera RN Position: [facility] AMB Nurse Member Role: Primary Care Nurse Name: Yudith Herrera RN Position: [facility] Onco RN Member Role: Primary Care Nurse Name: Raegan Baptiste RN Position: [facility] RN Member Role: Primary Care Nurse Name: She Pool Position: [facility] RN Member Role: Primary Care Nurse Name: Kaila Latham RN Position: [facility] RN Member Role: Primary Care Nurse Name: Julio C Bahena Position: [facility] RN Member Role: Primary Care Nurse Name: Nasima Heredia RN Position: [facility] RN Member Role: Primary Care Nurse Name: Katherine Nixon PharmD Position: [facility] Associate Professional Member Role: Lifetime Consulting Provider Address: Address: [address] [facility] [place], [place] - [place] Name: Daphne Barton RN Position: [facility] RN Member Role: Primary Care Nurse Name: Katherine Long RN Position: [facility] RN Member Role: Primary Care Nurse Name: Norma Serrano RN Position: [facility] RN Member Role: Primary Care Nurse Name: Seven Kelly RN Position: [facility] ED RN W/OE and Tasks Member Role: Primary Care Nurse Name: Fani Perez RN Position: [facility] RN Member Role: Primary Care Nurse Name: Hattie Brewster RN Position: [facility] RN Member Role: Primary Care Nurse Name: Kelly Hernandez RN Position: [facility] RN Member Role: Primary Care Nurse Name: Pallavi Wylie LPN Position: [facility] RN Member Role: Primary Care Nurse Name: Parris Zuluaga RN Position: [facility] RN Member Role: Primary Care Nurse Care Team Related Persons Name: ZENAIDA FLORES Address: [place] [address] Name: TIA RIVERS Address: [place] [address] Name: JOHANN RETANA Address: [place] [address]
--- OUTSIDE RECORDS SUMMARY | 2023-12-16 23:24 | XMS_ITS | Continuity of Care Document ---
Author Organization [facility] Address [address] [place] [address]- Care Team Providers Care Supervisor Fabrication Name Role Phone Caitlyn Bowie MD Primary Care Physician [phone] Encounter [facility] Date(s): 10/07/23 - 10/14/23 [facility] [address] [place] [address]- Encounter Diagnosis Rib pain on right side(Discharge Diagnosis) - 10/07/23 Attending Physician: Arleth Romero MD Referring Physician: Caitlyn Bowie MD Allergies, [...] 180 tablet, 2 Refills, Maintenance, 07/28/23 16:38:00 [facility] [...] Diagnosis Diagnosis Type Effective Dates Health Status inical Service Informant Rib pain on right side Discharge Diagnosis 10/07/23 Vital Signs Most recent to oldest [Reference Range]: 1 Height 159 cm (10/07/23 8:51 AM) Oxygen Saturation [94-100 %] 100 % (10/07/23 8:51 AM) Pulse Rate [55-90 bpm] 74 bpm (10/07/23 8:51 AM) Blood Pressure [90-138/55-84 mm Hg] 122/ 76mm Hg (10/07/23 8:51 AM) Temperature [96.8-100.4 DegF] 97.0 DegF (10/07/23 8:51 AM) Mode of Delivery (Oxygen) Room air (10/07/23 8:51 AM) Blood pressure sites Arm, right (10/07/23 8:51 AM) Temperature Route Temporal (10/07/23 8:51 AM) Social History Social History Type Response Smoking Status Never smoker; Tobacc o user in household: No entered on: 04/05/17 Sex Note * Pranav Carey: PERFORM, SIGN, VERIFY Event Display: Patient Education/Instruction Authored Date: [id number] [facility] *[facility] Clinical Summary Name CINDA WATSON Age 78 Years 1945 PCP Caitlyn Bowie MD [facility] [place] [id number] Visit Date 10/07/2023 08:25:00 Additional Instructions: Scheduled Appointments?? Future Appointments ?*[facility] ?[address]??[place],??[place],??[address] ?Phone:??[phone]?Fax:??-- ?Appt. Date:??10/17/2023?10:00 AM ?Scheduled Provider:??Donya HAJI, Fei ?*[facility] ?[address]??[place],??[place],??[address] ?Phone:??--?Fax:??-- ?Appt. Date:??12/28/2023?11:00 AM ?Scheduled Provider:??Caitlyn Bowie MD Follow-Up Instructions [...] 40 Milligram twice a day. Next Dose: Gabapentin (gabapentin 100 mg oral capsule) 1 capsule. Next Dose: Levothyroxine (levothyroxine 25 mcg (0.025 [...] Future Orders ?No future orders Future Orders ?No future orders Vital Signs Height 159 cm Weight BMI Blood Pressure 122 mm Hg/76 mm Hg Temperature 97.0 DegF Pulse Rate 74 bpm Respiratory Rate 02 Sat Mode of Delivery 100 %/Room air You can now view a summary of your hospital visit from the comfort of your home through a free online portal called [employer]. [employer] is a website that allows you to securely view your medical information including discharge summary, medications and follow-up visits. ??You can alsosend a secure electronic message to your doctor???s office to request appointments, renew medications or just ask a question. You can enroll at [email or web address] or register during your next [...] primary care provider, you may find a [facility] provider by calling [facility] at [phone]. [facility], in keeping with [facility] guidance, no longer requires face masks [...] Personnel Name: Val Wynne Position: [facility] Onco RN Member Role: Primary Care Nurse Name: Karen Pittman RN Position: S RN Member Role: Primary Care Nurse Name: Shilpi Mattson Position: Reference Physician Member Role: Primary Care Nurse Address: Address: [address] [address]- [place] Name: Toyin Doherty RN Position: S RN Member Role: Primary Care Nurse Name: Eben Hernandez NP Position: S Associate Professional Member Role: Lifetime Consulting Provider Address: Address: [address] [place] [address]- [place] Name: Alejandrina Turner RN Position: [facility] RN Member Role: Primary Care Nurse Name: Zoraida Felix RN Position: [facility] ED RN W/OE and Tasks Member Role: Primary Care Nurse Name: Jaye Harley Position: [facility] MA Fur Polisher Member Role: Notereader Name: Daphne Hooker RN Position: [facility] RN Member Role: Primary Care Nurse Name: Caitlyn Bowie MD Position: [facility] Physician - Primary Care Member Role: PCP Address: Address: [address] [place] [address] - Name: Kiki Abdi RN Position: [facility] RN Member Role: Primary Care Nurse Name: Marry Reza Position: [facility] RN Member Role: Primary Care Nurse Name: Veronica Hurst MA Position: [facility] SALLY MA Member Role: Lifetime Consulting Physician Name: Maddie Herrera RN Position: [facility] AMB Nurse Member Role: Primary Care Nurse Name: Yudith Herrera RN Position: [facility] Onco RN Member Role: Primary Care Nurse Name: Raegan Baptiste RN Position: [facility] RN Member Role: Primary Care Nurse Name: She Pool Position: [facility] RN Member Role: Primary Care Nurse Name: Kaila Latham RN Position: [facility] RN Member Role: Primary Care Nurse Name: Julio C Bahena Position: [facility] RN Member Role: Primary Care Nurse Name: Nasima Heredia RN Position: [facility] ED RN W/OE and Tasks Member Role: Primary Care Nurse Name: Katherine Nixon PharmD Position: [facility] Associate Professional Member Role: Lifetime Consulting Provider Address: Address: [address] [place] [address] - Name: Daphne Barton RN Position: [facility] RN Member Role: Primary Care Nurse Name: Katherine Long RN Position: [facility] RN Member Role: Primary Care Nurse Name: Norma Serrano RN Position: [facility] RN Member Role: Primary Care Nurse Name: Seven Kelly RN Position: [facility] ED RN W/OE and Tasks Member Role: Primary Care Nurse Name: Fani Perez RN Position: [facility] RN Member Role: Primary Care Nurse Name: Hattie Brewster RN Position: [facility] RN Member Role: Primary Care Nurse Name: Kelly Hernandez RN Position: S RN Member Role: Primary Care Nurse Name: Pallavi Wylie LPN Position: S RN Member Role: Primary Care Nurse Name: Parris Zuluaga RN Position: S RN Member Role: Primary Care Nurse Care Team Related Persons Name: ZENAIDA FLORES Address: [place] [address] Name: TIA RIVERS Address: [place] [address] Name: JOHANN RETANA Address: [place] [address]
--- OUTSIDE RECORDS SUMMARY | 2023-12-16 23:26 | XMS_ITS | Continuity of Care Document ---
Author Organization [facility] Address [address] [place] [address]- Care Team Providers Care Marker Shipments Name Role Phone Caitlyn Bowie MD Primary Care Physician Encounter [facility] Date(s): 11/02/23 - 12/02/23 [facility] [address] [place], [place] [address] Attending Physician: Melissa Morrison Admitting Physician: Admtr, Ar8 Referring Physician: Admtr, Ar8 Allergies, Adverse Reactions, Alerts Substance Reaction Severity Status ciprofloxacin Active clindamycin throat tightening Active barium sulfate Active sulfa drugs Active gentamicin Active erythromycin Active penicillin 1 Active vancomycin Active busPIRone Feeling of throat ti ghtness Headache Dizziness Active ipratropium Active morphine Active Biaxin Active [...] Results Authored Date: Laboratory * Event Display: Laboratory Result Scanned Authored Date: * Event Display: Non BH Lab Results Authored Date: * Event Display: Non BH Lab Results Authored Date: Radiology * Event Display: X-Ray [...] Display: NM Nuclear Medicine, Non-BH Authored Date: CT Head * Event Display: CT Scan Head Authored Date: US Lower extremity * Event Display: Ultrasound Lower Extremity Authored Date: Patient Care team information Care Team Personnel Name: Val yWnne Position: [facility] Onco RN Member Role: Primary Care Nurse Name: Shilpi Mattson Position: Reference Physician Member Role: Primary Care Nurse Address: Address: [address] [place] [address]- [place] Name: Toyin Doherty RN Position: [facility] RN Member Role: Primary Care Nurse Name: Eben Hernandez NP Position: [facility] Associate Professional Member Role: Lifetime Consulting Provider Address: Address: [address] [place] [address]- [place] Name: Alejandrina Turner RN Position: [facility] RN Member Role: Primary Care Nurse Name: Zoraida Felix RN Position: [facility] ED RN W/OE and Tasks Member Role: Primary Care Nurse Name: Jaye Harley Position: [facility] [place] Waxing Machine Operator Member Role: Twist Tester Name: Daphne Hooker RN Position: [facility] RN Member Role: Primary Care Nurse Name: Caitlyn Bowie MD Position: [facility] Physician - Primary Care Member Role: PCP Address: Address: [address] [place] [address]- [place] Name: Kiki Abdi RN Position: S RN Member Role: Primary Care Nurse Name: Marry Reza Position: [facility] RN Member Role: Primary Care Nurse Name: Aris JORGENSEN Veronica Position: [facility] JAY Office Staff Member Role: Lifetime Consulting Physician Name: Maddie Herrera RN Position: [facility] AMB Nurse Member Role: Primary Care Nurse Name: Yudith Herrera RN Position: [facility] Onco RN Member Role: Primary Care Nurse Name: Raegan Baptiste RN Position: [facility] RN Member Role: Primary Care Nurse Name: She Pool Position: [facility] RN Member Role: Primary Care Nurse Name: Kaila Latham RN Position: [facility] RN Member Role: Primary Care Nurse Name: Julio C Bahena Position: [facility] RN Member Role: Primary Care Nurse Name: Nasima Heredia RN Position: [facility] RN Member Role: Primary Care Nurse Name: Katherine Nixon PharmD Position: [facility] Associate Professional Member Role: Lifetime Consulting Provider Address: Address: [address] [place] [address] Name: Daphne Barton RN Position: [facility] RN Member Role: Primary Care Nurse Name: Katherine Long RN Position: [facility] RN Member Role: Primary Care Nurse Name: Norma Serrano RN Position: [facility] RN Member Role: Primary Care Nurse Name: Seven Kelly RN Position: [facility] ED RN W/WILLIAN and Tasks Member Role: Primary Care Nurse Name: Fani Perez RN Position: [facility] RN Member Role: Primary Care Nurse Name: Hattie Brewster RN Position: [facility] RN Member Role: Primary Care Nurse Name: Kelly Hernandez RN Position: [facility] RN Member Role: Primary Care Nurse Name: Pallavi Wylie LPN Position: [facility] RN Member Role: Primary Care Nurse Name: Parris Zuluaga RN Position: [facility] RN Member Role: Primary Care Nurse Care Team Related Persons Name: ZENAIDA FLORES Address: [place], [place] Name: TIA RIVERS Address: [place] [address] Name: JOHANN RETANA Address: [place], [place]
--- OUTSIDE RECORDS SUMMARY | 2023-12-16 23:29 | XMS_ITS | Continuity of Care Document ---
Author Organization [facility] Address [address] [place] [address]- Care Team Providers Care Assembler Installer Structures Name Role Phone Caitlyn Bowie MD Primary Care Physician Encounter [facility] Date(s): 10/15/21 - 11/14/21 [facility] [address] [place], [place] [address] Allergies, [...] day, 0 Refills, Maintenance, 11/06/21 12:44:00 EDT, [place], Partialfill upon patient request if the prescription [...] Refills, Maintenance, 11/09/21 9:33:00 EDT, EC Capsule, [facility], Partial fill upon [...]
--- OUTSIDE RECORDS SUMMARY | 2023-12-16 23:29 | XMS_ITS | Continuity of Care Document ---
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(Discharge Diagnosis) - 11/02/23 Chronic heart failure with preserved ejection fraction (HFpEF)(Discharge Diagnosis) - 11/02/23 Muscle ache(Discharge Diagnosis) - 11/02/23 Attending Physician: Caitlyn Bowie MD Allergies, Adverse [...] Effective Dates Health Status Clinical Service Informant HTN (hypertension) Discharge Diagnosis 11/02/23 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 Discharge Diagnosis 11/02/23 Chronic heart failure with preserved ejection fraction (HFpEF) Discharge Diagnosis 11/02/23 Muscle ache Discharge Diagnosis 11/02/23 Vital Signs Most recent to oldest [Reference Range]: 1 Height 158 cm (11/02/23 11:15 AM) Weight 59.9 kg (11/02/23 11:15 AM) Oxygen Saturation [94-100 %] 99 % (11/02/23 11:15 AM) Pulse Rate [55-90 bpm] 78 bpm (11/02/23 11:15 AM) Body Mass Index [18.5-24.99 kg/m2] 23.99 kg/m2 (11/02/23 11:15 AM) Blood Pressure [90-138/55-84 mm Hg] 132/ 78mm Hg (11/02/23 11:15 AM) Mode of Delivery (Oxygen) Room air (11/02/23 11:15 AM) Blood pressure sites Arm, left (11/02/23 11:15 AM) Social History Social History Type Response Smoking Status Never smoker; Tobacc o user in household: No entered on: 04/05/17 Sex Patient Care team information Care Team Personnel Name: Val Wynne Position: [facility] Onco RN Member Role: Primary Care Nurse Name: Shilpi Mattson Position: Reference Physician Member Role: Primary Care Nurse Address: Address: [address] [address]- [place] Name: Toyin Doherty RN Position: [facility] RN Member Role: Primary Care Nurse Name: Eben Hernandez NP Position: [facility] Associate Professional Member Role: Lifetime Consulting Provider Address: Address: [address] [place] [address]- [place] Name: Alejandrina Turner RN Position: [facility] RN Member Role: Primary Care Nurse Name: Zoraida Felix RN Position: [facility] ED RN W/OE and Tasks Member Role: Primary Care Nurse Name: Jaye Harley Position: [facility] [place] Plate Take Out Worker Member Role: Electrical Engineering Intern Name: Daphne Hooker RN Position: [facility] RN Member Role: Primary Care Nurse Name: Caitlyn Bowie MD Position: [facility] Physician - Primary Care Member Role: PCP Address: Address: [address] [place] [address]- [place] Name: Kiki Abdi RN Position: [facility] RN Member Role: Primary Care Nurse Name: Marry Reza Position: S RN Member Role: Primary Care Nurse Name: Veronica Hurst [place] Position: [facility] SALLY MA Member Role: Lifetime Consulting Physician Name: Maddie Herrera RN Position: [facility] AMB Nurse Member Role: Primary Care Nurse Name: Yudith Herrera RN Position: [facility] Onco RN [...] Care Nurse Name: Katherine Nixon PharmD Position: [facility] Associate Professional Member Role: Lifetime Consulting Provider Address: Address: [address] [place] [address]- Name: Daphne Barton RN Position: [facility] RN Member Role: Primary Care Nurse Name: Katherine Long RN Position: [facility] RN Member Role: Primary Care Nurse Name: Norma Serrano RN Position: [facility] RN Member Role: Primary Care Nurse Name: Seven Kelly RN Position: [facility] ED RN W/OE and Tasks Member Role: Primary Care Nurse Name: Fani Perez RN Position: [facility] RN Member Role: Primary Care Nurse Name: Hattie Brewster RN Position: [facility] RN Member Role: Primary Care Nurse Name: Kelly Hernandez RN Position: [facility] RN Member Role: Primary Care Nurse Name: Pallavi Wylie LPN Position: [facility] RN Member Role: Primary Care Nurse Name: Parris Zuluaga RN Position: [facility] RN Member Role: Primary Care Nurse Care Team Related Persons Name: ZENAIDA FLORES Address: [place] [address] Name: TIA RIVERS Address: [place] [address] Name: JOHANN RETANA Address: [place] [address]
--- OUTSIDE RECORDS SUMMARY | 2023-12-16 23:29 | XMS_ITS | Continuity of Care Document ---
Author Organization [facility] Address [address] [place] [address]- Care Team Providers Care Associate Technician Name Role Phone Caitlyn Bowie MD Primary Care Physician [phone] Encounter [facility] Date(s): 11/03/23 - 12/03/23 [facility] [address] [place], [place] [address] Allergies, Adverse Reactions, Alerts Substance [...] Care Team Personnel Name: Val Wynne Position: [facility] Onco RN Member Role: Primary Care Nurse Name: Shilpi Mattson Position: Reference Physician Member Role: Primary Care Nurse Address: Address: [address] [place] [address]- [place] Name: Toyin Doherty RN Position: [facility] RN Member Role: Primary Care Nurse Name: Eben Hernandez NP Position: [facility] Associate Professional Member Role: Lifetime Consulting Provider Address: Address: [address] [place] [address]- Name: Alejandrina Turner RN Position: [facility] RN Member Role: Primary Care Nurse Name: Zoraida Felix RN Position: [facility] ED RN W/OE and Tasks Member Role: Primary Care Nurse Name: Jaye Harley Position: [facility] [place] Fourdrinier Operator Member Role: Formal Waiter/Waitress Name: Daphne Hooker RN Position: [facility] RN Member Role: Primary Care Nurse Name: Caitlyn Bowie MD Position: [facility] Physician - Primary Care Member Role: PCP Address: Address: [address] [place] [address]- [place] Name: Kiki Abdi RN Position: [facility] RN Member Role: Primary Care Nurse Name: Marry Reza Position: [facility] RN Member Role: Primary Care Nurse Name: Veronica Hurst [place] Position: [facility] JAY Office Staff Member Role: Lifetime Consulting Physician Name: Maddie Herrera RN Position: [facility] AMB Nurse Member Role: Primary Care Nurse Name: Yudith Herrera RN Position: [facility] Onco RN Member Role: Primary Care Nurse Name: Raegan Baptiste RN Position: [facility] RN Member Role: Primary Care Nurse Name: She Pool Position: [facility] RN Member Role: Primary Care Nurse Name: Kaila Latham RN Position: [facility] RN Member Role: Primary Care Nurse Name: Julio C Bahena Position: [facility] RN Member Role: Primary Care Nurse Name: Nasima Heredia RN Position: [facility] RN Member Role: Primary Care Nurse Name: Katherine Nixon PharmD Position: [facility] Associate Professional Member Role: Lifetime Consulting Provider Address: Address: [address] [place] [address] Name: Daphne Barton RN Position: [facility] RN Member Role: Primary Care Nurse Name: Katherine Long RN Position: [facility] RN Member Role: Primary Care Nurse Name: Norma Serrano RN Position: [facility] RN Member Role: Primary Care Nurse Name: Seven Kelly RN Position: [facility] ED RN W/OE and Tasks Member Role: Primary Care Nurse Name: Fani Perez RN Position: [facility] RN Member Role: Primary Care Nurse Name: Hattie Brewster RN Position: [facility] RN Member Role: Primary Care Nurse Name: Kelly Hernandez RN Position: [facility] RN Member Role: Primary Care Nurse Name: Pallavi Wylie LPN Position: [facility] RN Member Role: Primary Care Nurse Name: Parris Zuluaga RN Position: [facility] RN Member Role: Primary Care Nurse Care Team Related Persons Name: ZENAIDA FLORSE Address: [place] [address] Name: TIA RIVERS Address: [place] [address] Name: JOHANN RETANA Address: [place], [place]
--- OUTSIDE RECORDS SUMMARY | 2023-12-16 23:32 | XMS_ITS | Continuity of Care Document ---
Author Organization [facility] Address [address] [place] [address]- Care Team Providers Care Wood Turning Lathe Operator Name Role Phone Caitlyn Bowie MD Primary Care Physician [phone] Encounter [facility] Date(s): 04/05/21 - 05/05/21 [facility] [address] [address] Allergies, Adverse [...] valve prolapse(Confirmed) Active Obstructive sleep apnea lauryn ocle with BiPAP(Confirmed) Active Optic neuritis(Confirmed) 1 Active Osteoporosis(Confirmed) Active Bilateral lower extremity pain(Confirmed) Active 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
--- OUTSIDE RECORDS SUMMARY | 2023-12-16 23:32 | XMS_ITS | Continuity of Care Document ---
Author Organization [facility] Address [address] [place] [address]- Care Team Providers Care Parachute Panel Joiner Name Role Phone Caitlyn Bowie MD Primary Care Physician [phone] Encounter [facility] Date(s): 10/16/23 - 11/15/23 [facility] [address] [place], [place] [address] Allergies, Adverse Reactions, Alerts Substance [...] Role: Primary Care Nurse Address: Address: [address] [place] [address]- [place] Name: Toyin Doherty RN Position: [facility] RN Member Role: Primary Care Nurse Name: Eben Hernandez NP Position: [facility] Associate Professional Member Role: Lifetime Consulting Provider Address: Address: [address] [place] [address]- Name: Alejandrina Turner RN Position: [facility] RN Member Role: Primary Care Nurse Name: Zoraida Felix RN Position: [facility] ED RN W/OE and Tasks Member Role: Primary Care Nurse Name: Jaye Harley Position: [facility] [place] Bulldogger Member Role: Efficiency Manager Name: Daphne Hooker RN Position: [facility] RN Member Role: Primary Care Nurse Name: Caitlyn Bowie MD Position: [facility] Physician - Primary Care Member Role: PCP Address: Address: [address] [place] [address]- [place] Name: Kiki Abdi RN Position: [facility] RN Member Role: Primary Care Nurse Name: Marry Reza Position: [facility] RN Member Role: Primary Care Nurse Name: eVronica Hurst [place] Position: [facility] JAY Office Staff Member Role: Lifetime Consulting Physician Name: Maddie Herrera RN Position: [facility] AMB Nurse Member Role: Primary Care Nurse Name: Yudith Herrera RN Position: [facility] Onco RN Member Role: Primary Care Nurse Name: Ragean Baptiste RN Position: [facility] RN [...] Role: Lifetime Consulting Provider Address: Address: [address] [place] [address] Name: Daphne Barton RN Position: [facility] [...] Related Persons Name: ZENAIDA FLORES Address: [place] [address] Name: TIA RIVERS Address: [place] [address] Name: JOHANN RETANA Address: [place], [place]
--- OUTSIDE RECORDS SUMMARY | 2023-12-16 23:35 | XMS_ITS | Continuity of Care Document ---
Author Organization [facility] Address [address] [place] [address]- Care Team Providers Care Supervisor Nutritional Yeast Name Role Phone Caitlyn Bowie MD Primary Care Physician Encounter [facility] Date(s): 11/02/23 - 12/02/23 [facility] [address] [place], [place] [address] Allergies, Adverse Reactions, Alerts Substance [...] Role: Primary Care Nurse Address: Address: [address] [place] [address]- [place] Name: Toyin Doherty RN Position: [facility] RN Member Role: Primary Care Nurse Name: Eben Hernandez NP Position: [facility] Associate Professional Member Role: Lifetime Consulting Provider Address: Address: [address] [place] [address]- Name: Alejandrina Turner RN Position: [facility] RN Member Role: Primary Care Nurse Name: Zoraida Felix RN Position: [facility] ED RN W/OE and Tasks Member Role: Primary Care Nurse Name: Jaye Harley Position: [facility] [place] Administrative Services Coordinator Member Role: Branch Office Administrator Name: Daphne Hooker RN Position: [facility] RN Member Role: Primary Care Nurse Name: Caitlyn Bowie MD Position: [facility] Physician - Primary Care Member Role: PCP Address: Address: [address] [place] [address]- [place] Name: Kiki Abdi RN Position: [facility] RN Member Role: Primary Care Nurse Name: Marry Reza Position: [facility] RN Member Role: Primary Care Nurse Name: Veronica Hurst MA Position: [facility] JAY Office Staff Member Role: Lifetime Consulting Physician Name: Maddie Herrera RN Position: [facility] AMB Nurse Member Role: Primary Care Nurse Name: Yudith Herrera RN Position: [facility] Onco RN [...] Care Nurse Name: Nasima Heredia RN Position: [facility] RN Member Role: Primary Care Nurse Name: Katherine Nixon PharmD Position: [facility] Associate Professional Member Role: Lifetime Consulting Provider Address: Address: [address] [place] [address] Name: Daphne Barton RN Position: [facility] RN Member Role: Primary Care Nurse Name: Katherine Long RN Position: [facility] RN Member Role: Primary Care Nurse Name: Norma Serrano RN Position: [facility] RN Member Role: Primary Care Nurse Name: Seven Kelly RN Position: [facility] ED RN W/OE and Tasks Member Role: Primary Care Nurse Name: Fani Perez RN Position: [facility] RN Member Role: Primary Care Nurse Name: Hattie Brewster RN Position: [facility] RN Member Role: Primary Care Nurse Name: Kelly Hernandez RN Position: [facility] RN Member Role: Primary Care Nurse Name: Pallavi Wylie LPN Position: [facility] RN Member Role: Primary Care Nurse Name: Parris Zuluaga RN Position: [facility] RN Member Role: Primary Care Nurse Care Team Related Persons Name: ZENAIDA FLORES Address: [place] [address] Name: TIA RIVERS Address: [place] [address] Name: JOHANN RETANA Address: [place], [place]
--- OUTSIDE RECORDS SUMMARY | 2023-12-16 23:38 | XMS_ITS | Continuity of Care Document ---
Author Organization [facility] Address [address] [place] [address]- Care Team Providers Care Farm Agent Name Role Phone Caitlyn Bowie MD Primary Care Physician Encounter [facility] Date(s): 10/13/23 - 11/12/23 [facility] [address] [place], [place] [address] Allergies, Adverse Reactions, Alerts Substance Reaction Severity Status ciprofloxacin Active clindamycin throat tightening Active penicillin 1 Active busPIRone Feeling of throat ti ghtness Headache Dizziness Active ipratropium Active barium sulfate Active iodinated radiocontrast dyes Active gentamicin Active erythromycin Active vancomycin Active morphine Active sulfa drugs Active Biaxin [...] Care Team Personnel Name: Val Wynne Position: [facility] Onco RN Member Role: Primary Care Nurse Name: Shilpi Mattson Position: Reference Physician Member Role: Primary Care Nurse Address: Address: [address] [place] [address]- [place] Name: Toyin Doherty RN Position: [facility] RN Member Role: Primary Care Nurse Name: Eben Hernandez NP Position: [facility] Associate Professional Member Role: Lifetime Consulting Provider Address: Address: [address] [place] [address]- Name: Alejandrina Turner RN Position: [facility] RN Member Role: Primary Care Nurse Name: Zoraida Felix RN Position: [facility] ED RN W/OE and Tasks Member Role: Primary Care Nurse Name: Jaye Harley Position: [facility] MA Display Department Manager Member Role: Peeler Operator Name: Daphne Hooker RN Position: [facility] RN Member Role: Primary Care Nurse Name: Caitlyn Bowei MD Position: [facility] Physician - Primary Care Member Role: PCP Address: Address: [address] [place] [address]- [place] Name: Kiki Abdi RN Position: [facility] RN Member Role: Primary Care Nurse Name: Marry Reza Position: [facility] RN Member Role: Primary Care Nurse Name: Veronica Hurst MA Position: [facility] AMB [place] Member Role: Lifetime Consulting Physician Name: Maddie Herrera RN Position: [facility] AMB Nurse Member Role: Primary Care Nurse Name: Yudith Herrera RN Position: [facility] Onco RN Member Role: Primary Care Nurse Name: Raegan Baptiste RN Position: [facility] RN Member Role: Primary Care Nurse Name: She Pool Position: [facility] RN Member Role: Primary Care Nurse Name: Kiala Latham RN Position: [facility] RN Member Role: Primary Care Nurse Name: Julio C Bahena Position: [facility] RN Member Role: Primary Care Nurse Name: Nasima Heredia RN Position: [facility] RN Member Role: Primary Care Nurse Name: Katherine Nixon PharmD Position: [facility] Associate Professional Member Role: Lifetime Consulting Provider Address: Address: [address] [place] [address] Name: Daphne Barton RN Position: [facility] RN Member Role: Primary Care Nurse Name: Katherine Long RN Position: [facility] RN Member Role: Primary Care Nurse Name: Norma Serrano RN Position: [facility] RN Member Role: Primary Care Nurse Name: Seven Kelly RN Position: [facility] ED RN W/OE and Tasks Member Role: Primary Care Nurse Name: Fani Perez RN Position: [facility] RN Member Role: Primary Care Nurse Name: Hattie Brewster RN Position: [facility] RN Member Role: Primary Care Nurse Name: Kelly Hernandez RN Position: [facility] RN Member Role: Primary Care Nurse Name: Pallavi Wylie LPN Position: [facility] RN Member Role: Primary Care Nurse Name: Parris Zuluaga RN Position: [facility] RN Member Role: Primary Care Nurse Care Team Related Persons Name: ZENAIDA FLORES Address: [place] [address] Name: TIA RIVERS Address: [place] [address] Name: JOHANN RETANA Address: [place], [place]
--- OUTSIDE RECORDS SUMMARY | 2023-12-16 23:38 | XMS_ITS | Continuity of Care Document ---
Author Organization [facility] Address [address] [place] [address]- Care Team Providers Care Tank Processor Name Role Phone Caitlyn Bowie MD Primary Care Physician [phone] Encounter [facility] Date(s): 12/19/22 - 12/20/[address] [address]- Discharge Disposition: A-D/C Walkout Attending Physician: Not [...] 15:50:00 EDT, 09/12/22 15:50:00 EST, [facility], 159, cm, 09/12/22 11:14:00 EST, [...] 0 Refills, Maintenance, 09/09/22 11:47:00EST, [facility], Partial fill upon patient request [...] Range]: 1 2 3 Height 158 cm (12/19/22 3:47 PM) 158 cm (12/19/22 3:39 PM) Oxygen Saturation [94-100 %] 99 % (12/20/22 1:12 AM) 96 % (12/19/22 10:26 PM) 97 % (12/19/22 8:38 PM) Pulse Rate [55-90 bpm] 88 bpm (12/20/22 1:12 AM) 87 bpm (12/19/22 10:26 PM) 91 bpm *H* (12/19/22 8:38 PM) Blood Pressure [90-138/55-84 mm Hg] 161/85mm Hg *H* (12/20/22 1:12 AM) 149/75mm Hg *H* (12/19/22 10:26 PM) 125/60mm Hg (12/19/22 8:38 PM) Respiratory Rate [16-30 br/min] 16 br/min (12/19/22 3:39 PM) Temperature [96.8-100.4 DegF] 97.7 DegF (12/20/22 1:12 AM) 98.1 DegF (12/19/22 10:26 PM) 98.1 DegF (12/19/22 8:38 PM) Mode of Delivery (Oxygen) Room air (12/20/22 1:12 AM) Room air (12/19/22 10:26 PM) Room air (12/19/22 8:38 PM) Blood pressure sites Arm, left (12/20/22 1:12 AM) Arm, left (12/19/22 10:26 PM) Arm, left (12/19/22 8:38 PM) Temperature Route Oral (12/20/22 1:12 AM) Oral (12/19/22 10:26 PM) Oral (12/19/22 8:38 PM) Dry Weight 59 kg (12/19/22 3:47 PM) 59 kg (12/19/22 3:39 PM) Dry Weight Obtained Via Patient lift strong ging scale (12/19/22 3:39 PM) Social History Social History Type Response Smoking Status Never smoker; Tobacc o user in household: No entered on: 04/05/17 Sex Female EKG study * Event Display: EKG Authored Date: [id number] Patient Care team information Care Team Personnel Name: Val Wynne Position: [facility] RN Member Role: Primary Care Nurse Name: Karen Pittman RN Position: S RN Member Role: Primary Care Nurse Name: Shilpi Mattson Position: Reference Physician Member Role: Primary Care Nurse Address: Address: [address] [place] [address] Name: Toyin Doherty RN Position: S RN Member Role: Primary Care Nurse Name: Eben Hernandez NP Position: [facility] Associate Professional Member Role: Lifetime Consulting Provider Address: Address: [address] [place] [address]- Name: Alejandrina Turner RN [facility] Caitlyn Bowie MD Position: [facility] Physician - Primary Care Member Role: PCP Address: Address: [address] [place] [address] - Name: Kiki Abdi RN Position: [facility] RN Member Role: Primary Care Nurse Name: Marry Reza Position: [facility] RN Member Role: Primary Care Nurse Name: Veronica Hurst MA Position: [facility] SALLY [place] Member Role: Lifetime Consulting Physician Name: Maddie Herrera RN Position: [facility] AMB Nurse Member Role: Primary Care Nurse Name: Raegan Baptiste RN Position: [facility] RN Member Role: Primary Care Nurse Name: Svitlana Marcum RN Position: [facility] AMB Nurse Member Role: Primary Care Nurse Name: She Pool Position: [facility] RN Member Role: Primary Care Nurse Name: Kaila Latham RN Position: [facility] ED RN W/OE and Tasks Member Role: Primary Care Nurse Name: Julio C Bahena Position: [facility] RN Member Role: Primary Care Nurse Name: Nasima Heredia RN Position: [facility] RN Member Role: Primary Care Nurse Name: Katherine Nixon PharmD Position: [facility] Associate Professional Member Role: Lifetime Consulting Provider Address: Address: [address] [place], [place] - Name: Daphne Barton RN [facility] [...] Team Related Persons Name: MARKZENAIDA ADAIR Address: [place] [address] Name: TIA RIVERS Address: [place] [address] Name: JOHANN RETANA Address: [place] [address]
--- OUTSIDE RECORDS SUMMARY | 2023-12-16 23:41 | XMS_ITS | Continuity of Care Document ---
Author Organization [facility] Address [address] [place] [address]- Care Team Providers Care Client Services Account Manager Name Role Phone Peewee STARK, Sharon Primary Care Physician Encounter [facility] Date(s): 03/31/20 - 04/30/20 [facility] [address] [place] [address]- [facility] Allergies, Adverse Reactions, Alerts Substance Reaction Severity [...] By Mouth, Daily, Dr. primo Renee at [facility], # 30 tablet, 0 Refills, Maintenance, 01/26/18 16:36:23 EDT, ER Tablet Start Date: 01/26/18 Status: Ordered metroNIDAZOLE 500 mg oral tablet 1 tablet = 500 mg, By Mouth, Every 8 hours, may take with food to minimize abdominal discomfort, # 18 tablet, 0 Refills, Maintenance, 09/06/19 14:42:00 EST, Tablet, [facility], 160, cm,09/06/19 7:35:00 EST, [...]
--- OUTSIDE RECORDS SUMMARY | 2023-12-16 23:42 | XMS_ITS | Patient Health Record ---
Author Organization [facility] Address [address] [place] [phone] Care Team Providers Care Rn Clinical Appeals Name Role Phone AzebShruti esquivelberly Primary Care Provider Cristian Fountain Unavailable [phone] ALLERGIES Allergen (clinical drug ingredient) Drug/Non Drug Allergy documented on EMR Reaction Allergy Type Onset Date Status gentamicin gentomycin (uncoded) Unknown Allergy Active Penicillin Unknown Drug Allergy Active voltarin (uncoded) Unknown Allergy A ctive erythromycin Erythromycin Unknown Drug Allergy A ctive azithromycin zithromycin (uncoded) Unknown Allergy Active Substance with sulfonamide structure and antibacterial mechanism of action (substance) Sulfa Antibiotics Unknown Drug Allergy Active ivp dye (uncoded) Unknown Allergy Ac tive Bee Sting Unknown Allergy Active barium sulfate Barium Sulfate Unknown Drug Allergy Active shrimp allergenic extract Shrimp (Diagnostic) Unknown Drug Allergy Active Voltaren Unknown Drug Allergy Active Levaquin Unknown Drug Allergy Active Gastrografin Unknown Drug Allergy Acti ve metronidazole Flagyl Unknown Drug Allergy Act esmer ciprofloxacin Cipro Unknown Drug Allergy Act esmer clarithromycin Biaxin Unknown Drug Allergy Ac tive moxifloxacin Avelox Unknown Drug Allergy Acti ve ipitromium bromide (uncoded) Unknown Allergy Active some muscle relaxers (uncoded) Unknown Allergy Active Avocado Avocado Unknown Allergy Active novacain (uncoded) Unknown Allergy A ctive vancomycin Vancomycin Unknown Drug Allergy Activ e REASON FOR REFERRAL No Information MEDICATIONS Medication SIG (Take, Route, Frequency, Duration) Notes Start Date End Date Status Tussin Active Zinc 50 MG 1 tablet Orally Once a day for 30 day(s) Active Vitamin B 12 100 MCG as directed Orally Active Vitamin D-3 125 MCG (5000 UT) as directed Orally Active Elderberry 500 MG as directed Orally Active Stool Softener 100 MG 1 capsule as neede d Orally Once a day for 30 day(s) Active Probiotic - as directed Orally Active ZyrTEC Allergy 10 MG 1 tablet Orally Onc e a day for 30 day(s) Active Vitamin C 500 MG as directed Orally Active Singulair 10 MG 1 tablet Orally Once a day for 30 day(s) Active Montelukast Sodium 10 MG 1 tablet Orally Once a day for 30 day(s) Active Metoprolol Succinate ER 25 MG 1 tablet Orally Once a day for 30 day(s) Active Magnesium 300 MG 1 capsule with a addis l Orally Once a day for 30 day(s) Active Coumadin 1 MG 1 tablet Orally Once a day for 30 day(s) Active traZODone HCl 100 MG 1 tablet at bedtime Orally Once a day for 30 day(s) Active Azelastine HCl 137 MCG/SPRAY 1 puff in each nostril Nasally Twice a day for 30 day(s) Active Valium 5 MG 1 tablet as needed O rally Once a day Active Albuterol Sulfate (2.5 MG/3ML) 0.083% 3 ml as needed Inhalation every 6 hrs Active Synthroid 25 MCG 1 tablet in the morn ing on an empty stomach Orally Once a day for 30 day(s) Active Advair HFA 230-21 MCG/ACT 2 puffs Inhala tion Twice a day Active Furosemide 20 MG 1 tablet Orally Once a day for 30 day(s) Active Meclizine HCl 25 MG 1 tablet as needed O rally Once a day for 30 day(s) Active Omeprazole 40 MG 1 capsule 30 minutes before morning meal Orally Once a day for 30 day(s) Active IMMUNIZATIONS Vaccine Route Administration Date Status Comme nts Influenza Unknown 04/27/2021 Administered SOCIAL HISTORY Tobacco Use: Social History Observation Description Date Details (start date - stop date) Never Smoker NA - NA Sex Assigned At : Social History Observation Description Sex Assigned At Unknown Tobacco Use/Smoking Question Answer Notes Patient is a nonsmoker Alcohol Screen Question Answer Notes Did you have a drink containing alcohol in the p ast year? No Points 0 Interpretation Negative PROBLEMS Problem Type ICD Code Onset Dates Problem Status W/U Status Risk SNOMED Code Notes Problem Irritable bowel syndrome with constipation (K58.9) Active confirmed Irritable bowel syndrome characterized by constipation (955623642) Problem Diverticulitis (K57.92) Active confirmed Diverticulitis (694985418) Problem GERD (gastroesophageal reflux disease) (K21.9) Active confirmed Gastroesophagea l reflux disease (268078259) PLAN OF TREATMENT No Information Insurance Providers Payer Name Payer Address Payer Phone Subscriber Number Group Number Insured Name Patient Relationship to Insured Coverage Start Date Coverage End Date MEDICARE OF [place] [address] [place] [address] [id number] SHIRLEY CINDA Self - patient is the insured [employer] ATT[employer] CLAIMS [address] [place] [address] [phone] [id number] DANIEL WATSONE Self - patient is the insured MEDICAL (GENERAL) HISTORY Medical History History ICD Code RI-04/2021-sees Dr. Cadet--describes a negative cardiac cath Lung cancer 2008-LL[facility] Nonsmall cell-surge ry as below COPD-sees Dr. Kelly--has Bipap--uses oxygen prn HAYDER infection Pulmonary hypertension Sigmoid Diverticulitis since approximately 2019-hospitalized 03/2021, outpatient antibiotics in 04/2021, 08/2021, and 11/2021 Has had colonoscopies---negative for micah yps--sees Dr. Gomes Peripheral vascular disease Denies DM,renal disease Describes a small bleed in the brain i n 2020--no surgery IBS-constipation--uses laxatives prn--se es Dr. 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 Hogan at [facility] GERD-has had EGD's with Dr. Gomes Pneumomias Hypothyroidism Surgical History Surgery Date(Month/Year) Tonsils and adenoids [facility] Lung cancer[facility]
--- NOTE | 2023-12-16 23:47 | ED_ITS ---
HPI - Wound/Laceration General Chief Complaint: Wound/Laceration Stated Complaint: arm laceration on thinners Time Seen by Provider: 12/16/23 23:45 Source: patient Mode of arrival: ambulatory Limitations: no limitations History of Present Illness ED Provider: Dr. Louie Ly HPI narrative: 78-year-old female with multiple medical problems on warfarin who presents emergency department for evaluation of skin tear to her left elbow area which continues to bleed. The patient states that she was in a hurry and she accidentally bumped her left elbow against a door jam. She sustained a skin tear that was bleeding. She went to an urgent care clinic and they Steri-Strips of the wound. She states that she is continuing to bleed and she has concerned that the wound may be infected therefore she came to the emergency department for evaluation. Related Data Home Medications ?Medication ?Instructions ?Recorded ?Confirmed levothyroxine 25 mcg tablet 25 mcg PO MOTUWETHFR@0600 06/14/22 11/20/23 (Synthroid) CPAP (CPAP Machine/Device) 06/30/22 11/20/23 Oxygen Home Use 06/30/22 11/20/23 nebulizers 06/30/22 11/20/23 warfarin 1 mg tablet (Jantoven) mg PO 06/30/22 11/20/23 epinephrine 0.3 mg/0.3 mL IM 07/14/22 11/20/23 injection, auto-injector diazepam 5 mg tablet 5 mg PO BID Anxiety and Sleep 11/21/22 11/20/23 triamcinolone acetonide 0.1 % 1 appl topical BID-TID 05/29/23 11/20/23 topical cream prednisone 2.5 mg tablet 2.5 mg PO Q OTHER DAY 08/09/23 11/20/23 triamcinolone acetonide 0.1 % topical 08/25/23 11/20/23 topical ointment furosemide 40 mg tablet 80 mg PO BID 11/28/23 Previous Rx's ?Medication ?Instructions ?Recorded meclizine 25 mg tablet 25 mg PO TID PRN dizziness 14 days 09/12/22 #42 tabs albuterol sulfate 2.5 mg/3 mL 2.5 mg (3 mL) inhalation Q6H PRN 09/21/22 (0.083 %) solution for nebulization shortness of breath or wheezing 30 days #180 mL Advair HFA 230 mcg-21 2 puff inhalation BID 90 days #36 03/07/23 mcg/actuation aerosol inhaler grams (fluticasone propion-salmeterol) rosuvastatin 10 mg tablet 10 mg PO Q OTHER DAY #45 tabs 06/26/23 levocetirizine 5 mg tablet 5 mg PO DAILY 90 days #90 tabs 07/20/23 montelukast 10 mg tablet 10 mg PO DAILY #90 tabs 07/20/23 potassium chloride 20 mEq oral 20 meq PO DAILY #50 ea 07/20/23 packet trazodone 50 mg tablet 100 mg (2 x 50 mg) PO BEDTIME #180 07/20/23 tabs metoprolol succinate 50 mg 50 mg PO BID #120 tabs 08/14/23 tablet,extended release 24 hr (Toprol XL) acetaminophen 300 mg-codeine 15 mg 1 tab PO Q8H PRN pain 10 days #30 10/13/23 tablet tabs cefpodoxime 200 mg tablet 200 mg PO BID 14 days #28 tabs 11/02/23 codeine 10 mg-guaifenesin 100 mg/5 5 ml PO Q6H PRN cough 10 days #150 11/14/23 mL oral liquid mL Allergies Allergy/AdvReac Type Severity Reaction Status Date / Time avocado [AVOCADO] Allergy Mild ITCHY Verified 12/16/23 22:07 THROAT, RASH azithromycin [AZITHROMYCIN] Allergy Mild ITCHY Verified 12/16/23 22:07 THROAT, RASH barium iodide [BARIUM IODIDE] Allergy Mild ITCHY Verified 12/16/23 22:07 THROAT, RASH barium sulfate Allergy Mild Itch Verified 12/16/23 22:07 bee pollen [BEE STINGS] Allergy Mild ITCHY Verified 12/16/23 22:07 THROAT, RASH ciprofloxacin [From CIPRO] Allergy Mild ITCHY Verified 12/16/23 22:07 THROAT, RASH clarithromycin [From BIAXIN] Allergy Mild ITCHY Verified 12/16/23 22:07 THROAT, RASH diatrizoate meglumine Allergy Mild ITCHY Verified 12/16/23 22:07 [From GASTROGRAFIN] THROAT, RASH diatrizoate sodium Allergy Mild ITCHY Verified 12/16/23 22:07 [From GASTROGRAFIN] THROAT, RASH diclofenac [From VOLTAREN] Allergy Mild ITCHY Verified 12/16/23 22:07 THROAT, RASH erythromycin base Allergy Mild ITCHY Verified 12/16/23 22:07 [ERYTHROMYCIN BASE] THROAT, RASH gentamicin [GENTAMICIN] Allergy Mild ITCHY Verified 12/16/23 22:07 THROAT, RASH Iodinated Contrast Media Allergy Mild ITCHY Verified 12/16/23 22:07 [IVP DYE] THROAT, RASH levofloxacin [From LEVAQUIN] Allergy Mild ITCHY Verified 12/16/23 22:07 THROAT, RASH metronidazole [From FLAGYL] Allergy Mild ITCHY Verified 12/16/23 22:07 THROAT, RASH moxifloxacin [From AVELOX] Allergy Mild ITCHY Verified 12/16/23 22:07 THROAT, RASH Penicillins [PENICILLINS] Allergy Mild ITCHY Verified 12/16/23 22:07 THROAT, RASH shrimp [SHRIMP] Allergy Mild ITCHY Verified 12/16/23 22:07 THROAT, RASH Sulfa (Sulfonamide Allergy Mild ITCHY Verified 12/16/23 22:07 Antibiotics) THROAT, [SULFA (SULFONAMIDE RASH ANTIBIOTICS)] vancomycin [VANCOMYCIN] Allergy Mild ITCHY Verified 12/16/23 22:07 THROAT, RASH clindamycin AdvReac Intermediate Unknown Verified 12/16/23 22:07 Review of Systems Review of Systems: Yes all other systems are reviewed and are negative PMFSH Past Medical History Medical History (Updated 12/17/23 @ 01:04 by Louie Ly MD) Leg pain Anemia Tachycardia DVT (deep venous thrombosis) COPD (chronic obstructive pulmonary disease) Compression fracture of body of thoracic vertebra ASD (atrial septal defect) Pleuritic chest pain History of COVID-19 Chronic anticoagulation Hypothyroidism GERD (gastroesophageal reflux disease) Hyperlipidemia Hypertension Factor 5 Leiden mutation, heterozygous History of non-ST elevation myocardial infarction (NSTEMI) Hypoxia Anxiety PTSD (post-traumatic stress disorder) Hemoptysis Dyspnea Tracheobronchitis CLARA positive Diverticulitis Allergic bronchitis (HFpEF) heart failure with preserved ejection fraction Subarachnoid bleed Insomnia Anti-phospholipid antibody syndrome Hypogammaglobulinemia Chronic respiratory failure Arterial insufficiency of lower extremity Complex regional pain syndrome i of right lower limb Post herpetic neuralgia Pulmonary hypertension Pericardial effusion Pulmonary emboli Pleural effusion Radiation fibrosis of lung Pneumonitis Pulmonary nodules KANDY treated with BiPAP Lung cancer Surgical History History of colonoscopy History of lung surgery History of tonsillectomy History of hysterectomy S/P mitral valve clip implantation History of cardiac cath Family History Family History Sister No problems noted. Mother Cardiovascular disease Daughter Tachycardia Other KANDY (obstructive sleep apnea) Social History Social History Household Members: None Housing: House Do you presently have visiting nurse or other home services: Yes Unable to assess alcohol history related to: Unknown Alcohol intake: former Comment: stand by assist with ambulation Patient Tobacco Use Status: Never used Tobacco Second Hand Smoke Exposure: No Advance Directives: Yes Advance Directives on File: Yes Advance Directives Date on File: 06/15/22 service: No Current occupational status: retired Physical Exam Vital Signs: Vital Signs: Last Vital Signs Temp 98.6 F 12/16/23 22:00 Pulse 88 12/16/23 22:00 Resp 20 12/16/23 22:00 BP 155/71 H 12/16/23 22:00 Pulse Ox 98 12/16/23 22:00 O2 Del Method Nasal Cannula 12/16/23 22:00 Oxygen Flow Rate 2 12/16/23 22:00 BMI result Body Mass Index 23.0 Vital signs revealed an elevated blood pressure of 155/71 elevated respiratory rate of 20. Exam: General: Awake, alert in no distress Extremities: Patient has a 2.0 cm C-shaped skin tear to her left lateral elbow area which was steri-stripped. There is a small hematoma underneath the Steri- Strips area and the patient is using blood around the Steri-Strips. Patient has no significant tenderness with palpation of her elbow and has full range of motion of her upper extremity. There has no significant erythema or increased warmth around the laceration. Psych: Pleasant, cooperative Medical Decision Making Medical Decision Making MDM Narrative: 78-year-old female with multiple medical problems on warfarin who presents emergency department for a left upper extremity skin tear which continues to bleed despite being Steri-Strips at an urgent care clinic earlier in the day. Vital signs revealed an elevated blood pressure and elevated respiratory rate. The patient's left upper extremity evaluation is consistent with a skin tear with an underlying hematoma, patient is using blood around the Steri-Strips. No evidence for infection. Differential diagnosis: ?Includes but is not limited to skin tear, hematoma, cellulitis, bleeding secondary to warfarin treatment Course: I remove the Steri-Strips. The skin tear was then closed with skin glue. A nonstick dressing was applied over the skin glue, 4 4 x 4 gauze pads were placed over the nonstick dressing and a pressure dressing was created using an Bang wrap. Patient was advised to keep the Bang wrap on for 24 hours. She was given printed and verbal instructions on skin glue. She was discharged home. Chronic Conditions Patient?s care impacted by: Other (Warfarin therapy for Leiden factor 5 deficiency) Procedures Laceration Left lateral elbow 2.0 cm skin tear: Site: upper extremity Side (If applicable): left Size (cm): 2.0 Description: flap Depth: simple, single layer Size (cm): other (Skin adhesive) Discharge Plan Discharge Clinical Impression: Skin tear of elbow without complication, Hematoma, Requires lifelong warfarin therapy Patient Disposition: Home, Self-Care Instructions: Skin Adhesive Care (ED) Additional Instructions: You have a superficial skin tear that is not infected. You do have a small hematoma underneath the skin tear but this is secondary to continued bleeding due to warfarin/Coumadin therapy. Your skin tear was repaired with skin adhesive glue. Do not apply any ointments or any creams to the skin glue since this will cause the skin glue to dissolve. The skin glue will dissolve over 3-7 days and hopefully by then the skin will be healing underneath the glue. A pressure dressing using nonstick gauze, gauze and an Bang wrap was applied over the wound to help stop the bleeding. Leave this external dressing on for 24 hours then you can remove it. Follow-up with your doctor in 2 days. Please return to the emergency department if your symptoms get worse or if you develop any symptoms that are concerning to you. Prescriptions: No Action meclizine 25 mg tablet 25 mg PO TID PRN (Reason: dizziness) 14 Days Qty: 42 0RF albuterol sulfate 2.5 mg /3 mL (0.083 %) solution for nebulization 2.5 mg inhalation Q6H PRN (Reason: shortness of breath or wheezing) 30 Days Qty: 180 11RF Advair HFA 230-21 mcg/actuation HFA aerosol inhaler 2 puff inhalation BID 90 Days Qty: 36 4RF rosuvastatin 10 mg tablet 10 mg PO Q OTHER DAY Qty: 45 3RF potassium chloride 20 mEq packet 20 meq PO DAILY Qty: 50 3RF acetaminophen-codeine 300-15 mg tablet 1 tab PO Q8H PRN (Reason: pain) 10 Days Qty: 30 0RF cefpodoxime 200 mg tablet 200 mg PO BID 14 Days Qty: 28 0RF Rx Instructions: must administer with a meal/food codeine-guaifenesin 10-100 mg/5 mL liquid 5 ml PO Q6H PRN (Reason: cough) 10 Days Qty: 150 0RF furosemide 40 mg tablet 80 mg PO BID levothyroxine [Synthroid] 25 mcg tablet 25 mcg PO MOTUWETHFR@0600 diazepam 5 mg tablet 5 mg PO BID warfarin [Jantoven] 1 mg tablet PO (DME) nebulizers Misc See Rx Instructions .Route Rx Instructions: As directed (DME) CPAP Machine/Device Device See Rx Instructions .Route Rx Instructions: As directed (DME) Oxygen Home Use Kit See Rx Instructions .Route Rx Instructions: As directed epinephrine 0.3 mg/0.3 mL auto-injector IM metoprolol succinate [Toprol XL] 50 mg tablet extended release 24 hr 50 mg PO BID Qty: 120 3RF prednisone 2.5 mg tablet 2.5 mg PO Q OTHER DAY triamcinolone acetonide 0.1 % cream 1 appl topical BID-TID levocetirizine 5 mg tablet 5 mg PO DAILY 90 Days Qty: 90 3RF trazodone 50 mg tablet 100 mg PO BEDTIME Qty: 180 3RF montelukast 10 mg tablet 10 mg PO DAILY Qty: 90 3RF triamcinolone acetonide 0.1 % ointment topical Print Language: Turkmen
--- NOTE | 2023-12-17 01:01 | MHC.EDTECH ---
Per MD request non-adhesive bandage placed on wound and 4 4x4's placed on top as padding then arm and wound wrapped with wild bandage. pt tolerated well
[2023-12-17 01:32] VITALS: BP 142/68; PULSE 76; RESP 20; TEMP 36.7; O2SAT 98
== END 2023-12-17 01:33 | disposition home or self-care (01) ==
PROVIDERS: Emergency Provider Emergency Medicine Emergency Medical Services; PCP Internal Medicine
DX: S51.012A Laceration without foreign body of left elbow, initial encounter (principal); S50.02XA Contusion of left elbow, initial encounter; W22.01XA Walked into wall, initial encounter; Y93.89 Activity, other specified; Y92.9 Unspecified place or not applicable; Y99.9 Unspecified external cause status
CPT/HCPCS: 12001; 99283; 99284

== ENCOUNTER 2023-12-22 09:45 | Emergency (ER) | payer MEDICARE, SELFPAY ==
[2023-12-22 10:20] VITALS: BP 137/76; PULSE 75; RESP 16; TEMP 36.2; O2SAT 98; BMI 23.3
--- NOTE | 2023-12-22 11:12 | ED_ITS ---
HPI - Wound/Laceration General Chief Complaint: Wound/Laceration Stated Complaint: Rectal Bleed Time Seen by Provider: 12/22/23 11:14 Source: patient Mode of arrival: ambulatory Limitations: no limitations History of Present Illness HPI narrative: Patient is an 78-year-old female who presents emergency department for evaluation. She states that she was seen in the emergency department 6 days ago, after sustaining a laceration to her left lateral elbow, skin adhesive was placed. She reports that when she got out of the shower today she noticed a small blood the glue along the border that is starting to lift. She expresses concern for the bleeding as she is anticoagulated with warfarin, reports her INR today was 1.8 which is within therapeutic range for her. She denies any subsequent trauma or injury to the left arm. Denies any additional sources of bleeding Related Data Home Medications ?Medication ?Instructions ?Recorded ?Confirmed levothyroxine 25 mcg tablet 25 mcg PO MOTUWETHFR@0600 06/14/22 11/20/23 (Synthroid) CPAP (CPAP Machine/Device) 06/30/22 11/20/23 Oxygen Home Use 06/30/22 11/20/23 nebulizers 06/30/22 11/20/23 warfarin 1 mg tablet (Jantoven) mg PO 06/30/22 11/20/23 epinephrine 0.3 mg/0.3 mL IM 07/14/22 11/20/23 injection, auto-injector diazepam 5 mg tablet 5 mg PO BID Anxiety and Sleep 11/21/22 11/20/23 triamcinolone acetonide 0.1 % 1 appl topical BID-TID 05/29/23 11/20/23 topical cream prednisone 2.5 mg tablet 2.5 mg PO Q OTHER DAY 08/09/23 11/20/23 triamcinolone acetonide 0.1 % topical 08/25/23 11/20/23 topical ointment furosemide 40 mg tablet 80 mg PO BID 11/28/23 Previous Rx's ?Medication ?Instructions ?Recorded meclizine 25 mg tablet 25 mg PO TID PRN dizziness 14 days 09/12/22 #42 tabs albuterol sulfate 2.5 mg/3 mL 2.5 mg (3 mL) inhalation Q6H PRN 09/21/22 (0.083 %) solution for nebulization shortness of breath or wheezing 30 days #180 mL Advair HFA 230 mcg-21 2 puff inhalation BID 90 days #36 03/07/23 mcg/actuation aerosol inhaler grams (fluticasone propion-salmeterol) rosuvastatin 10 mg tablet 10 mg PO Q OTHER DAY #45 tabs 06/26/23 levocetirizine 5 mg tablet 5 mg PO DAILY 90 days #90 tabs 07/20/23 montelukast 10 mg tablet 10 mg PO DAILY #90 tabs 07/20/23 potassium chloride 20 mEq oral 20 meq PO DAILY #50 ea 07/20/23 packet trazodone 50 mg tablet 100 mg (2 x 50 mg) PO BEDTIME #180 07/20/23 tabs metoprolol succinate 50 mg 50 mg PO BID #120 tabs 08/14/23 tablet,extended release 24 hr (Toprol XL) acetaminophen 300 mg-codeine 15 mg 1 tab PO Q8H PRN pain 10 days #30 10/13/23 tablet tabs cefpodoxime 200 mg tablet 200 mg PO BID 14 days #28 tabs 11/02/23 codeine 10 mg-guaifenesin 100 mg/5 5 ml PO Q6H PRN cough 10 days #150 11/14/23 mL oral liquid mL Allergies Allergy/AdvReac Type Severity Reaction Status Date / Time avocado [AVOCADO] Allergy Mild ITCHY Verified 12/22/23 10:25 THROAT, RASH azithromycin [AZITHROMYCIN] Allergy Mild ITCHY Verified 12/22/23 10:25 THROAT, RASH barium iodide [BARIUM IODIDE] Allergy Mild ITCHY Verified 12/22/23 10:25 THROAT, RASH barium sulfate Allergy Mild Itch Verified 12/22/23 10:25 bee pollen [BEE STINGS] Allergy Mild ITCHY Verified 12/22/23 10:25 THROAT, RASH ciprofloxacin [From CIPRO] Allergy Mild ITCHY Verified 12/22/23 10:25 THROAT, RASH clarithromycin [From BIAXIN] Allergy Mild ITCHY Verified 12/22/23 10:25 THROAT, RASH diatrizoate meglumine Allergy Mild ITCHY Verified 12/22/23 10:25 [From GASTROGRAFIN] THROAT, RASH diatrizoate sodium Allergy Mild ITCHY Verified 12/22/23 10:25 [From GASTROGRAFIN] THROAT, RASH diclofenac [From VOLTAREN] Allergy Mild ITCHY Verified 12/22/23 10:25 THROAT, RASH erythromycin base Allergy Mild ITCHY Verified 12/22/23 10:25 [ERYTHROMYCIN BASE] THROAT, RASH gentamicin [GENTAMICIN] Allergy Mild ITCHY Verified 12/22/23 10:25 THROAT, RASH Iodinated Contrast Media Allergy Mild ITCHY Verified 12/22/23 10:25 [IVP DYE] THROAT, RASH levofloxacin [From LEVAQUIN] Allergy Mild ITCHY Verified 12/22/23 10:25 THROAT, RASH metronidazole [From FLAGYL] Allergy Mild ITCHY Verified 12/22/23 10:25 THROAT, RASH moxifloxacin [From AVELOX] Allergy Mild ITCHY Verified 12/22/23 10:25 THROAT, RASH Penicillins [PENICILLINS] Allergy Mild ITCHY Verified 12/22/23 10:25 THROAT, RASH shrimp [SHRIMP] Allergy Mild ITCHY Verified 12/22/23 10:25 THROAT, RASH Sulfa (Sulfonamide Allergy Mild ITCHY Verified 12/22/23 10:25 Antibiotics) THROAT, [SULFA (SULFONAMIDE RASH ANTIBIOTICS)] vancomycin [VANCOMYCIN] Allergy Mild ITCHY Verified 12/22/23 10:25 THROAT, RASH clindamycin AdvReac Intermediate Unknown Verified 12/22/23 10:25 Review of Systems Review of Systems: Yes all other systems are reviewed and are negative PMFSH Past Medical History Attestation statement: The following information was validated with the patient. Source: old records reviewed Medical History Leg pain Anemia Tachycardia DVT (deep venous thrombosis) COPD (chronic obstructive pulmonary disease) Compression fracture of body of thoracic vertebra ASD (atrial septal defect) Pleuritic chest pain History of COVID-19 Chronic anticoagulation Hypothyroidism GERD (gastroesophageal reflux disease) Hyperlipidemia Hypertension Factor 5 Leiden mutation, heterozygous History of non-ST elevation myocardial infarction (NSTEMI) Hypoxia Anxiety PTSD (post-traumatic stress disorder) Hemoptysis Dyspnea Tracheobronchitis CLARA positive Diverticulitis Allergic bronchitis (HFpEF) heart failure with preserved ejection fraction Subarachnoid bleed Insomnia Anti-phospholipid antibody syndrome Hypogammaglobulinemia Chronic respiratory failure Arterial insufficiency of lower extremity Complex regional pain syndrome i of right lower limb Post herpetic neuralgia Pulmonary hypertension Pericardial effusion Pulmonary emboli Pleural effusion Radiation fibrosis of lung Pneumonitis Pulmonary nodules KANDY treated with BiPAP Lung cancer Surgical History History of colonoscopy History of lung surgery History of tonsillectomy History of hysterectomy S/P mitral valve clip implantation History of cardiac cath Family History Family History Sister No problems noted. Mother Cardiovascular disease Daughter Tachycardia Other KANDY (obstructive sleep apnea) Social History Social History Household Members: None Housing: House Do you presently have visiting nurse or other home services: Yes Unable to assess alcohol history related to: Unknown Alcohol intake: former Comment: stand by assist with ambulation Patient Tobacco Use Status: Never used Tobacco Second Hand Smoke Exposure: No Advance Directives: Yes Advance Directives on File: Yes Advance Directives Date on File: 06/15/22 service: No Current occupational status: retired Physical Exam Vital Signs: Vital Signs: Last Vital Signs Temp 97.2 F 12/22/23 11:23 Pulse 75 12/22/23 11:23 Resp 16 12/22/23 11:23 BP 137/76 12/22/23 11:23 Pulse Ox 98 12/22/23 11:23 O2 Del Method Nasal Cannula 12/22/23 11:23 Oxygen Flow Rate 2 12/22/23 10:20 BMI result Body Mass Index 23.3 Appearance: Alert.?Oriented to person, place and time. No acute distress.?N ormal affect. Eyes: Pupils equal, round and reactive to light.? ENT: Pharynx normal.?? Neck: Normal inspection.? Neck supple.?? CVS: Heart sounds normal. Normal heart rate and rhythm.? Pulses normal.?? Respiratory: No respiratory distress.? Lung sounds clear to auscultation bilaterally?? Abdomen: Soft and non-tender. Normoactive bowel sounds. Skin: Skin warm and dry.? Normal skin color.? ? Extremities: No lower extremity edema.? No calf ttp. Left lateral elbow with skin adhesive intact, edges are up lifting, no active bleeding. ? Neuro: Moves all extremities spontaneously. Sensation intact bilaterally. Ambulates with normal steady gait. Medical Decision Making Medical Decision Making MDM Narrative: Patient is an 78-year-old female who presents to the emergency department for re-evaluation of laceration to the left elbow as per HPI. No active bleeding, reassurance was provided, findings consistent with normal healing and skin adhesive progression, advised against self removal of the adhesive until it falls off on its own. No surrounding erythema, or signs to be concern for cellulitis/infection. Outpatient INR within therapeutic range. Stable for discharge home outpatient follow-up with primary care provider Differential Diagnosis Differential Diagnoses: The differential diagnosis associated with the presentation includes (See narrative above) External Record Review External record reviewed: Prior outpatient labs Chronic Conditions Patient?s care impacted by: Other (Long-term anticoagulation secondary to DVT) Discharge Plan Discharge Clinical Impression: Laceration of forearm Qualifiers: Encounter type: subsequent encounter Laterality: left Qualified Code(s): S51.812D - Laceration without foreign body of left forearm, subsequent encounter Patient Disposition: Home, Self-Care Instructions: Laceration (ED) Additional Instructions: As discussed, the skin glue will fall off on its own when it is ready. Do not peel it off or pick at it prematurely. Continue to exercise caution with the arm to prevent injury or tearing. Follow-up with your primary care doctor Prescriptions: No Action meclizine 25 mg tablet 25 mg PO TID PRN (Reason: dizziness) 14 Days Qty: 42 0RF albuterol sulfate 2.5 mg /3 mL (0.083 %) solution for nebulization 2.5 mg inhalation Q6H PRN (Reason: shortness of breath or wheezing) 30 Days Qty: 180 11RF Advair HFA 230-21 mcg/actuation HFA aerosol inhaler 2 puff inhalation BID 90 Days Qty: 36 4RF rosuvastatin 10 mg tablet 10 mg PO Q OTHER DAY Qty: 45 3RF potassium chloride 20 mEq packet 20 meq PO DAILY Qty: 50 3RF acetaminophen-codeine 300-15 mg tablet 1 tab PO Q8H PRN (Reason: pain) 10 Days Qty: 30 0RF cefpodoxime 200 mg tablet 200 mg PO BID 14 Days Qty: 28 0RF Rx Instructions: must administer with a meal/food codeine-guaifenesin 10-100 mg/5 mL liquid 5 ml PO Q6H PRN (Reason: cough) 10 Days Qty: 150 0RF furosemide 40 mg tablet 80 mg PO BID levothyroxine [Synthroid] 25 mcg tablet 25 mcg PO MOTUWETHFR@0600 diazepam 5 mg tablet 5 mg PO BID warfarin [Jantoven] 1 mg tablet PO (DME) nebulizers Misc See Rx Instructions .Route Rx Instructions: As directed (DME) CPAP Machine/Device Device See Rx Instructions .Route Rx Instructions: As directed (DME) Oxygen Home Use Kit See Rx Instructions .Route Rx Instructions: As directed epinephrine 0.3 mg/0.3 mL auto-injector IM metoprolol succinate [Toprol XL] 50 mg tablet extended release 24 hr 50 mg PO BID Qty: 120 3RF prednisone 2.5 mg tablet 2.5 mg PO Q OTHER DAY triamcinolone acetonide 0.1 % cream 1 appl topical BID-TID levocetirizine 5 mg tablet 5 mg PO DAILY 90 Days Qty: 90 3RF trazodone 50 mg tablet 100 mg PO BEDTIME Qty: 180 3RF montelukast 10 mg tablet 10 mg PO DAILY Qty: 90 3RF triamcinolone acetonide 0.1 % ointment topical Referrals: Caitlyn Bowie MD [Primary Care Provider] - Interventions: ED Discharge Assessment Last Done: 12/22/23 11:23 Discharge Date/Time: 12/22/23 11:24 Print Language: Macedonian
[2023-12-22 11:23] VITALS: BP 137/76; PULSE 75; RESP 16; TEMP 36.2; O2SAT 98
--- OUTSIDE RECORDS SUMMARY | 2023-12-22 11:58 | XMS_ITS | Patient Health Record ---
Author Organization [facility] Address [address] [place] [id number] Care Team Providers Care Mri Manager Name Role Phone AzebShruti esquivelberly Primary Care Provider Cristian Fountain Unavailable [phone] ALLERGIES Allergen (clinical drug ingredient) Drug/Non Drug [...] confirmed Irritable bowel syndrome characterized by constipation (968975282) Problem Diverticulitis (K57.92) Active confirmed Diverticulitis (343283828) Problem GERD (gastroesophageal reflux disease) (K21.9) Active confirmed Gastroesophagea l reflux disease (696655396) PLAN OF TREATMENT No Information Insurance Providers Payer Name Payer Address Payer Phone Subscriber Number Group Number Insured Name Patient Relationship to Insured Coverage Start Date Coverage End Date MEDICARE OF [place] [address] [place] [address] [phone] [id number] SHIRLEY CINDA Self - patient is the insured [employer] CLAIMS [address] [place] [phone] [id number] DANIEL WATSONE Self - patient is the insured MEDICAL (GENERAL) HISTORY Medical History History ICD Code KS-04/2021-sees Dr. 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 [place] [facility] [place]has had EGD's with Dr. Gomes Pneumomias Hypothyroidism Surgical History Surgery Date(Month/Year) Tonsils and adenoids [facility] Lung cancer-[facility], Chemo 2008
== END 2023-12-22 11:24 | disposition home or self-care (01) ==
LOC: HO.ED 11:14
PROVIDERS: Emergency Provider Emergency Medicine; PCP Internal Medicine
DX: S51.812A Laceration without foreign body of left forearm, initial encounter (principal); W26.9XXA Contact with unspecified sharp object(s), initial encounter; Y93.9 Activity, unspecified; Y92.000 Kitchen of unspecified non-institutional (private) residence as the place of occurrence of the external cause; Y99.8 Other external cause status; Z79.899 Other long term (current) drug therapy
CPT/HCPCS: 99282

== ENCOUNTER 2023-12-26 10:00 | Outpatient (AMB) | payer MEDICARE, SELFPAY ==
[2023-12-26 10:09] VITALS: BP 136/60; PULSE 77; O2SAT 99; BMI 23.0
--- NOTE | 2023-12-26 10:09 | MHC.OFFVIS ---
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 Allergies avocado [AVOCADO] Allergy (Mild, Verified 12/26/23 10:12) ITCHY THROAT, RASH azithromycin [AZITHROMYCIN] Allergy (Mild, Verified 12/26/23 10:12) ITCHY THROAT, RASH barium iodide [BARIUM IODIDE] Allergy (Mild, Verified 12/26/23 10:12) ITCHY THROAT, RASH barium sulfate Allergy (Mild, Verified 12/26/23 10:12) Itch bee pollen [BEE STINGS] Allergy (Mild, Verified 12/26/23 10:12) ITCHY THROAT, RASH ciprofloxacin [From CIPRO] Allergy (Mild, Verified 12/26/23 10:12) ITCHY THROAT, RASH clarithromycin [From BIAXIN] Allergy (Mild, Verified 12/26/23 10:12) ITCHY THROAT, RASH diatrizoate meglumine [From GASTROGRAFIN] Allergy (Mild, Verified 12/26/23 10:12) ITCHY THROAT, RASH diatrizoate sodium [From GASTROGRAFIN] Allergy (Mild, Verified 12/26/23 10:12) ITCHY THROAT, RASH diclofenac [From VOLTAREN] Allergy (Mild, Verified 12/26/23 10:12) ITCHY THROAT, RASH erythromycin base [ERYTHROMYCIN BASE] Allergy (Mild, Verified 12/26/23 10:12) ITCHY THROAT, RASH gentamicin [GENTAMICIN] Allergy (Mild, Verified 12/26/23 10:12) ITCHY THROAT, RASH Iodinated Contrast Media [IVP DYE] Allergy (Mild, Verified 12/26/23 10:12) ITCHY THROAT, RASH levofloxacin [From LEVAQUIN] Allergy (Mild, Verified 12/26/23 10:12) ITCHY THROAT, RASH metronidazole [From FLAGYL] Allergy (Mild, Verified 12/26/23 10:12) ITCHY THROAT, RASH moxifloxacin [From AVELOX] Allergy (Mild, Verified 12/26/23 10:12) ITCHY THROAT, RASH Penicillins [PENICILLINS] Allergy (Mild, Verified 12/26/23 10:12) ITCHY THROAT, RASH shrimp [SHRIMP] Allergy (Mild, Verified 12/26/23 10:12) ITCHY THROAT, RASH Sulfa (Sulfonamide Antibiotics) [SULFA (SULFONAMIDE ANTIBIOTICS)] Allergy (Mild, Verified 12/26/23 10:12) ITCHY THROAT, RASH vancomycin [VANCOMYCIN] Allergy (Mild, Verified 12/26/23 10:12) ITCHY THROAT, RASH clindamycin Adverse Reaction (Intermediate, Verified 12/26/23 10:12) Unknown HPI Comments Details: The patient is a 78 y/o woman with a complicated history which includes: COPD, KANDY, pulmonary HTN, history pulmonary emboli on chronic anticoagulation, lung CA Stage IIIA s/o neoadjuvant chemoradiation and Left upper lobe lobectomy. She did have a CT scan today that I personally reviewed. Has not been personally read by the radiologist. Based on my reading she has some pulmonary nodules some that are new 4 mm in the right major fissure area. Other nodules are stable. Other post operative and pulmonary fibrotic changes stable. The patient should get a CT scan in 6 months. Also to note, she did not tolerate the Incruse nor budesonide. Will consider Daliresp. She was admitted to [facility] with diverticulitis. She was placed on IV antibiotics but she left against medical advice because she did not like the antibiotic options. In the meantime she was having some issues with coughing up some blood. She is also concerned because on her visit to [facility] she did have a CT scan of the chest and she was told that she had significant scarring of her lungs in addition to lung volume loss. I have not looked at the CT scan back in reassured her that she has had this radiation fibrosis for long time and volume loss due to the scarring was present before. We did review her perfusion scan demonstrating no defects to suggest any blood clots. Interestingly in the quantitative study the patient did have 81% of the blood flow going to her right lung and 18% going to the left. This is likely due to her previous surgery and also radiation changes. 07/20/2023 the patient is here for a pulmonary follow-up visit. The patient overall has been doing fairly well. She just returned from a trip to [place]. She had 1 for time with her family. She continues use her oxygen with a portable oxygen concentrator while being there. She did have a cough when she was down there but since she came back the cough has improved some. She also describes symptoms of chest pain and also tachycardia which have been exertional. She does mention that the time that it happened she was coming back from the supermarket and she was carrying some groceries and she took off her oxygen. And when she tried carrying the groceries she started having some left-sided chest pressure and also some tachycardia. I also did take it for walk in the office. We did walker with a portable oxygen concentrator and she became dyspneic although the pulse ox was stable and heart rate was also stable. My suspicion is that in view of her congestive heart failure and pulmonary hypertension and moderate degree of COPD she is having some demand symptoms when she exerts herself without the oxygen. Therefore explained to her that she should not take off the oxygen while exerting herself and lifting groceries or objects. The patient is wondering about her pulmonary hypertension. Explained to her that vasodilators therapy will be potentially problematic specially with her reactions in the past. The main treatment at this point will be diuresis. She is tolerating that well she will undergo blood work to further address that. We did review her PFTs that she had back last year in appears that her COPD did worsen with an FEV1 of 74% predicted which is moderate severity. The patient also underwent blood work and her venous gas demonstrated an elevated CO2 and also she had an elevated bicarb. Will go ahead and have a repeat the blood work at this time. She is also having some abdominal discomfort. I suspect that she has recurrence of her diverticulitis. I will give her Vantin which she tolerates and if the symptoms worsen she needs to either go to her primary care doctor seek medical advice. 08/24/2023 the patient is here for a pulmonary follow-up visit. She was recently hospitalized at [facility] apparently with diverticulitis and also with pneumonia. The patient had a repeat CT scan of the abdomen just yesterday. We will request the results from [place]. In the meantime the patient continues have shortness of breath with minimal activity. She does use her oxygen with good effect. She has been evaluated further for her pulmonary hypertension. She did speak to her specialists from [place] who wants her to undergo a cardiac catheterization. She is reluctant to go to [place]. And her insole cementer here is reluctant to do it here. She in the meantime will have an echocardiogram I believe in [facility]. Based on those results additional evaluation may be warranted. The patient does have dyspnea on exertion. Bent heart Association class 3. I do believe that this is related to her underlying pulmonary hypertension along with her significant COPD and restrictive lung disease. The patient does complaint of a cough the cough tends to be croupy in nature. She likely has a component of tracheomalacia. She does have daytime drowsiness. Her [place] score is elevated 10/24. She has a hard time remembering things. I did download her BiPAP. Currently setting 13 overnight. Her AHI is actually elevated at 13. This was not the case before on the same settings that she has had multiple sleep studies. Initially I was going to put her on VPAP auto but I just went ahead and increase her pressures to 15/10 in view of her very sensitive response to change. She will let me know how these pressures are doing we can always download her machine online to make sure that her AHI is decreasing. The patient's last blood gas demonstrated component of chronic hypercarbic respiratory failure along with a metabolic alkalosis. Likely from diuresis and her renal adjustments to her hypercarbia. The patient is scheduled to undergo an overnight oximetry on her BiPAP and on 2 L of oxygen which she has been using. We will reassess and check her venous blood gas during the next visit. 09/14/2023 the patient is here for visit. The patient still has multiple complaints. She is nervous. She feels like her breathing is getting worse and she is using oxygen more often. She also complains of pleuritic discomfort on the left side of her chest. She was seen by Cardiology and they do not see any active coronary artery disease based on her to coronary artery angiograms. The patient does have indeed some pulmonary hypertension and some mitral stenosis secondary to her mitral clip. She is responding well to the diuretics. No role for vasodilators therapy. The patient did have an overnight oximetry which we reviewed. The patient does need to increase her oxygen with BiPAP. She increases from 2 L to 3 L at this time. She needs to have further education about her use the concentrator so request a [employer] since somebody to educate her on how to switch her concentrator at this time. Meantime the patient is complaining of neck pain and also numbness of her upper extremities. She is also having difficulty sleeping. Will go ahead and started on a small dose of gabapentin hopefully to help her with her neuropathic discomfort and also hopefully help her with her sleep. She is very sensitive to medications so she will start with 100 mg capsules which is very small dose and then increase it to 200 after a week if not any better. Seems that she was on Neurontin in the past and she did tolerated which is reassuring. 10/12/2023 the patient is here for a pulmonary follow-up visit. She has been complaining of right-sided chest discomfort now. Apparently she was in her car reason for something and she felt the uncomfortable pop on her right side of her chest. And now is tender to the touch hurts when she takes a deep breath in makes it difficult to breathe. She did go to an urgent care where she had an x-ray done. I do see a small hairline fracture on that right side. Therefore the patient will be uncomfortable for some time. The patient is concerned about the potential of lung collapse. Explained to her that this area does not appear to be displaced therefore some likely to be the case. However, in view of her significant symptoms in the fact that the radiology report once it was normal in the patient does have a history of cancer we should go ahead and request a CT scan to better address her pleuritic right-sided discomfort. The patient will be provided also with some pain medication although she is extremely sensitive to new medications. Therefore she can try the atenolol 3. To see this provides her with some relief because of the pain she understands that she needs to be read. I did give her a incentive spirometer so she can work on that. Her respiratory medications are the same. She is also using her BiPAP at night with the oxygen with good effect. She does complaint of additional dyspnea. [id number] severity. She is now relying on the oxygen more. She has noted that for the last 3 days she gained about 4 lb. She feels a little bit more bloated. She understands that she needs to take additional diuresis. 11/09/2023 the patient is here for a pulmonary follow-up visit. During the last visit the patient was having chest discomfort dizziness. We did check a D-dimer that was significantly elevated. The patient did go to [facility] which she did have a CTA. The patient did not have any evidence of any blood clots. I did personally review the CTA demonstrating stable postoperative changes and fibrotic changes. No significant new nodules noted. Again no thromboembolic disease. The patient was discharged. She has been doing okay she has been using her oxygen. She continued on the diuretics. She has episodes of palpitations with heart rate she states goes up to 150 beats per minute. During those episodes she does drop her saturations down to the 80s. Usually the symptoms subside after several minutes. The patient in the meantime has been complaining of lower extremity pain especially behind her knee on her left lower extremity. We did again recheck his D-dimer continues to be elevated so therefore will do lower extremity Dopplers. The patient is on Coumadin and her last INR was documented to be 1.5 which is her therapeutic window specially since she has platelet dysfunction. She continues respiratory therapy. She did have an episode of palpitations when using the nebulizer so I did recommend she can only use half a treatment if she really needs it. Otherwise she should try to refrain from its specially if she has had more cardiac instability and irritability. We also checked her electrolytes because of that as well. Her potassium was 3.1. She had not taken today's dose of potassium so therefore I did emphasize importance of taking her potassium oral supplementation to minimize cardiac arrhythmias. 12/15/2023 the patient is here for pulmonary follow-up visit. Still having difficulties with her lower extremity edema. I did reassure her that her weight has been stable in that is more important. She has already a dose of diuretics. The patient has been having some bruising primarily because of the compression stockings. This is typical specially with her anticoagulation and platelet dysfunction. The patient also has a cough chest congestion. She has chronic lung disease and COPD with chronic bronchitis explained to her that she will always make mucus. She responds well to the oxygen she is using more regularly with good response. The patient has been using her BiPAP. BiPAP therapy has been affecting beneficial although her AHI now is elevated up to 15. She is having some central apneas. I did check a blood gas in her pCO2 is 59 mm Hg. At this point she is feeling BiPAP. The patient has hypercarbic respiratory failure due to her COPD. This carries a poor prognosis and high risk for hospitalizations. Therefore we are going to switch over to a noninvasive ventilator, astral. This provide her with better gas exchange improved prognosis and decrease hospitalizations. I did talk to the [employer] that supplies with the BiPAP to switch over to the astral at this time. 12/26/2023 the patient is here for sick visit. Since her last visit she did have a blood gas demonstrating an elevated CO2 of 59 mm Hg. The patient has hypercarbic respiratory failure due to her COPD. In addition to that she does have significant sleep apnea. She has been on BiPAP and she has had multiple sleep studies demonstrating the BiPAP settings are appropriate for her. Although, the last downloaded demonstrated that her AHI significantly increased up to about 15 events per hour. Some component of central apneas noted suggesting a complex sleep apnea picture. Therefore, based on the fact that she has hypercarbic respiratory failure we did set up with an astral. She has tried over the weekend she states that she developed significant chest pain shortness of breath she can not tolerate it. She does want keep using it. She went back to him BiPAP. In view of her worsening AHI will go ahead and refer her to a sleep specialist in addition to that will request an in-lab titration study to see if we can adequately titrate her on a BiPAP or IVAP. In the meantime she does continue with her ongoing shortness of breath cough mucus plugging. She does have some wheezing on examination. She needs to make sure to use her inhalers and she can also use her nebulizer as needed. She is already on prednisone 2.5 mg twice a day were not going to increase this at this time. She does have poor sleep quality. She is also having issues with a times being tearful and somewhat depressed. Also affecting her sleep-wake cycle. She is currently on trazodone with partial improvement. She is trying to get off the benzodiazepines because she has concerned the CO2 retention. I believe this is reasonable. [facility] Medical History (Updated 12/26/23 @ 10:27 by Henry Kelly MD) Complex sleep apnea syndrome Chronic hypercapnic respiratory failure Leg pain Anemia Tachycardia DVT (deep venous thrombosis) COPD (chronic obstructive pulmonary disease) Compression fracture of body of thoracic vertebra ASD (atrial septal defect) Pleuritic chest pain History of COVID-19 Chronic anticoagulation Hypothyroidism GERD (gastroesophageal reflux disease) Hyperlipidemia Hypertension Factor 5 Leiden mutation, heterozygous History of non-ST elevation myocardial infarction (NSTEMI) Hypoxia Anxiety PTSD (post-traumatic stress disorder) Hemoptysis Dyspnea Tracheobronchitis CLARA positive Diverticulitis Allergic bronchitis (HFpEF) heart failure with preserved ejection fraction Subarachnoid bleed Insomnia Anti-phospholipid antibody syndrome Hypogammaglobulinemia Chronic respiratory failure Arterial insufficiency of lower extremity Complex regional pain syndrome i of right lower limb Post herpetic neuralgia Pulmonary hypertension Pericardial effusion Pulmonary emboli Pleural effusion Radiation fibrosis of lung Pneumonitis Pulmonary nodules KANDY treated with BiPAP Lung cancer Surgical History History of colonoscopy History of lung surgery History of tonsillectomy History of hysterectomy S/P mitral valve clip implantation History of cardiac cath Family History Sister No problems noted. Mother Cardiovascular disease Daughter Tachycardia Other KANDY (obstructive sleep apnea) Social History Household Members: None Housing: House Do you presently have visiting nurse or other home services: Yes Unable to assess alcohol history related to: Unknown Alcohol intake: former Comment: stand by assist with ambulation Patient Tobacco Use Status: Never used Tobacco Second Hand Smoke Exposure: No Advance Directives Date on File: 06/15/22 service: No Current occupational status: retired Review of Systems Const Denies chills, Reports daytime sleepiness, Reports fatigue, Denies fever(s), Denies frequent falls, Denies weakness, Denies weight gain and Denies weight loss Eyes Reports change in vision ENT Denies change in voice and Denies dizziness Card Reports chest pain, Reports chest pain with activity, Reports rapid heart rate, Denies leg edema, Denies lightheadedness, Denies palpitations, Denies dyspnea, Reports dyspnea on exertion, Denies orthopnea and Denies other (loss of consciousness) Resp Reports cough, Reports pain on inspiration, Reports pain with cough, Denies dyspnea and Reports dyspnea on exertion GI Denies hematochezia and Denies change in stool character Musc Denies abnormal gait, Denies muscle weakness, Denies numbness, Denies radiating pain into limb and Denies tingling Skin/Breast Reports change in pigmentation Neuro Denies abnormal gait, Denies dizziness, Denies frequent falls, Denies numbness, Denies tingling and Denies weakness Psych Reports depression Endo Reports fatigue and Denies palpitations Physical Exam Vital Signs: Last Vital Signs Pulse 77 12/26/23 10:09 BP 136/60 12/26/23 10:09 Pulse Ox 99 12/26/23 10:09 Oxygen Delivery Method Room Air 12/26/23 10:09 BMI result Body Mass Index 23.0 Last Vital Signs Temp 97.7 F 06/20/22 08:00 Pulse 90 06/20/22 08:00 Resp 16 06/20/22 08:00 BP 137/60 06/20/22 08:00 Pulse Ox 93 06/20/22 08:00 O2 Del Method 06/20/22 08:00 O2 Flow Rate 2 06/20/22 08:00 FiO2 45 06/14/22 11:07 BMI result Body Mass Index 23.0 Const General: cooperative, comfortable, alert and awake Orientation/consciousness: patient oriented x3 HEENT Head: Yes atraumatic Eyes General: appearance normal, both eyes and all related structures Neck Neck: Yes trachea midline, Yes supple and Yes no JVD Chest Chest palpation & inspection: tenderness rib (right side) Resp Effort & Inspection: normal respiratory effort, no cough and No prolonged expiratory phase Auscultation: no rales, no rhonchi, wheezes and diminished lung sounds Cardio Rate: regular rate Rhythm: regular rhythm Heart sounds: S1 normal heart sound present, S2 normal heart sound present and Abnormal heart opening sounds loud S2 GI Auscultation: normal bowel sounds Skin General skin exam: purpura and scars Neuro General: patient oriented x3 and no focal motor deficits Extrem General: Yes no clubbing, cyanosis or edema Assessment & Plan Assessment & Plan (1) Chronic hypercapnic respiratory failure: Code(s): J96.12 - Chronic respiratory failure with hypercapnia Category: Medical (2) Complex sleep apnea syndrome: Code(s): G47.31 - Primary central sleep apnea Category: Medical (3) Lung cancer: Code(s): C34.90 - Malignant neoplasm of unspecified part of unspecified bronchus or lung Category: Medical Qualifiers: Laterality: left Lung location: upper lobe of lung Qualified Code(s): C34.12 - Malignant neoplasm of upper lobe, left bronchus or lung (4) Pulmonary hypertension: Comment: severe based on RHC, moderate based on recent echo Code(s): I27.20 - Pulmonary hypertension, unspecified Category: Medical (5) Pulmonary nodules: Code(s): R91.8 - Other nonspecific abnormal finding of lung field Category: Medical (6) Chronic respiratory failure: Code(s): J96.10 - Chronic respiratory failure, unspecified whether with hypoxia or hypercapnia Category: Medical Qualifiers: Respiratory failure complication: hypoxia and hypercapnia Qualified Code(s): J96.11 - Chronic respiratory failure with hypoxia; J96.12 - Chronic respiratory failure with hypercapnia (7) KANDY treated with BiPAP: Code(s): G47.33 - Obstructive sleep apnea (adult) (pediatric) Category: Medical (8) Radiation fibrosis of lung: Code(s): J70.1 - Chronic and other pulmonary manifestations due to radiation Category: Medical (9) COPD (chronic obstructive pulmonary disease): Code(s): J44.9 - Chronic obstructive pulmonary disease, unspecified Category: Medical Qualifiers: COPD type: chronic bronchitis Chronic bronchitis type: simple Qualified Code(s): J41.0 - Simple chronic bronchitis (10) Diastolic CHF: Code(s): I50.30 - Unspecified diastolic (congestive) heart failure Category: Medical Qualifiers: Heart failure chronicity: chronic Qualified Code(s): I50.32 - Chronic diastolic (congestive) heart failure (11) (HFpEF) heart failure with preserved ejection fraction: Code(s): I50.30 - Unspecified diastolic (congestive) heart failure Category: Medical Qualifiers: Heart failure chronicity: chronic Qualified Code(s): I50.32 - Chronic diastolic (congestive) heart failure Plan prednisone 2.5 mg QOD Ambien for sleep continue Advair ASHA as needed continue ASHA (xopenex) as needed CPT with acapella valve fluticasone Oxygen 2L/pulse with activity and sleep. POC Inogen G5 duiresis as tolerated Not tolerating AVAP, does not want to try to adjust the settings. AHI >16 with now significant central apneas and elevated PCO2. will decrease BIPAP 25/03 to 16/. Sleep referral and in lab [place] [facility] [place] bloodwok F/U 6-8 weeks Orders: Orders RT PSG in-lab sleep titration Today G47.31 - Primary central sleep apnea, J96.12 - Chronic respiratory failure with hypercapnia Referrals Sleep Medicine Referral G47.31 - Primary central sleep apnea, J96.12 - Chronic respiratory failure with hypercapnia Coding Level of Care Code Est Pt Level 5 (10200) Diagnoses Chronic hypercapnic respiratory failure J96.12 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 Malignant neoplasm of upper lobe of left lung C34.12 Laterality: left Lung location: upper lobe of lung Pulmonary hypertension I27.20 Pulmonary nodules R91.8 Chronic respiratory failure with hypoxia and hypercapnia J96.11; J96.12 Respiratory failure complication: hypoxia and hypercapnia KANDY treated with BiPAP G47.33 Radiation fibrosis of lung 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 Chronic heart failure with preserved ejection fraction I50.32 Heart failure chronicity: chronic Time Spent (min) 60
== END 2023-12-26 10:47 | disposition home or self-care (01) ==
PROVIDERS: PCP Internal Medicine; Visit Provider Hospitalist
DX: J96.12 Chronic respiratory failure with hypercapnia (principal); G47.31 Primary central sleep apnea; C34.12 Malignant neoplasm of upper lobe, left bronchus or lung; I27.20 Pulmonary hypertension, unspecified; R91.8 Other nonspecific abnormal finding of lung field; J96.11 Chronic respiratory failure with hypoxia; G47.33 Obstructive sleep apnea (adult) (pediatric); J70.1 Chronic and other pulmonary manifestations due to radiation; J41.0 Simple chronic bronchitis; I50.32 Chronic diastolic (congestive) heart failure
CPT/HCPCS: 99215; G2212

== ENCOUNTER → 2023-12-26 10:00 | Outpatient (BNVA) | payer MEDICARE, SELFPAY | PROVIDERS: PCP Internal Medicine; Visit Provider Hospitalist | DX: J41.0 Simple chronic bronchitis (principal); J96.11 Chronic respiratory failure with hypoxia; J96.12 Chronic respiratory failure with hypercapnia; C34.12 Malignant neoplasm of upper lobe, left bronchus or lung; J70.1 Chronic and other pulmonary manifestations due to radiation; R91.8 Other nonspecific abnormal finding of lung field; I27.20 Pulmonary hypertension, unspecified; I50.32 Chronic diastolic (congestive) heart failure; G47.31 Primary central sleep apnea; G47.33 Obstructive sleep apnea (adult) (pediatric) | CPT/HCPCS: 99212 ==

== ENCOUNTER 2024-01-02 10:32 | Outpatient (REF) | payer MEDICARE, SELFPAY ==
[2024-01-02 11:01] LABS: MANUAL DIFF FLAG NO
[2024-01-02 11:05] LABS: Basophils Absolute Auto 0.1 X10*3/uL (0.0-0.2); Basophils Percent Auto 0.5 % (0-2); Eosinophils Absolute Auto 0.1 X10*3/uL (0.0-0.4); Eosinophils Percent Auto 0.4 % (0-4); Hematocrit 39.9 % (37.0-47.0); Hemoglobin 13.1 g/dl (12.0-16.0); Imm Gran Abs Auto 0.11 X10*3/uL (0.00-0.03); Imm Gran Pct Auto 0.8 % (0.0-0.4); Lymphocytes Absolute Auto 0.9 X10*3/uL (1.2-4.9); Lymphocytes Percent Auto 6.3 % (20-40); Mean Corpuscular HGB Conc 32.8 g/dl (31.0-35.0); Mean Corpuscular Volume 100.5 fL (80.0-98.0); Mean Platelet Volume 11.3 fL (9.4-12.3); Monocytes Absolute Auto 0.8 X10*3/uL (0.1-1.2); Monocytes Percent Auto 5.4 % (2-11); Neutrophils Absolute Auto 12.6 x10*3/uL (2.0-8.3); Neutrophils Percent Auto 86.6 % (45-73); Platelet Count 218 X10*3/uL (160-400); Red Blood Count 3.97 X10*6/uL (4.20-5.50); Red Cell Distribution Width 13.4 % (11.0-16.0); White Blood Count 14.6 X10*3/uL (4.8-10.8)
[2024-01-02 11:28] LABS: Alanine Aminotransferase 24 U/L (0-31); Albumin Level 3.9 g/dL (3.5-5.0); Alkaline Phosphatase 64 U/L (39-117); Anion Gap 15 (12-20); Aspartate Amino Transferase 29 U/L (5-31); Bilirubin Total 0.5 mg/dL (0.0-1.0); Blood Urea Nitrogen 26 mg/dL (9-16); Carbon Dioxide 33 mmol/L (22-29); Chloride 98 mmol/L (96-108); Estimated Glomerular Filt Rate > 60; Glucose Random 115 mg/dL (60-115); Iron 98 mcg/dL (30-160); Percent Iron Saturation 31 % (15-50); Potassium 3.6 mmol/L (3.3-5.1); Sodium 142 mmol/L (135-145); Total Iron Binding Capacity 314 mcg/dL (228-428); Total Protein 7.2 g/dL (6.5-8.0); Unsaturated Iron Binding 216 ug/dL
[2024-01-02 11:51] LABS: Ferritin 68 ng/mL (10-250)
[2024-01-02 12:05] LABS: Folate 12.5 ng/mL (> or = 4.0); Vitamin B12 753 pg/mL (200-900)
[2024-01-02 12:44] LABS: D Dimer High Sensitivity 392 NG/ML
[2024-01-04 12:33] LABS: Kappa Light Chain, Free Serum 27.8 mg/L (3.3-19.4); Kappa/Lambda Lt Ch Free Ratio 1.28 (0.26-1.65); Lambda Light Chain, Free Serum 21.7 mg/L (5.7-26.3)
[2024-01-07 14:49] LABS: Vitamin B1 17 nmol/L (8-30)
[2024-01-07 22:34] LABS: Vitamin K1 278 pg/mL (130-1500)
[2024-01-09 08:59] LABS: Vitamin C 0.6 mg/dL (0.3-2.7)
== END 2024-01-02 10:33 | disposition home or self-care (01) ==
LOC: HO.LAB 10:32
PROVIDERS: Absent Provider Internal Medicine; PCP Internal Medicine; Visit Provider Internal Medicine
DX: Z13.89 Encounter for screening for other disorder (principal)
CPT/HCPCS: 36415; 80053; 82180; 82607; 82728; 82746; 83521; 83540; 84425; 84443; 84597; 85025; 85379

== ENCOUNTER 2024-01-04 18:38 | Inpatient (IN) | payer MEDICARE, SELFPAY ==
--- NOTE | ~2024-01-04 | XR_ITS ---
EXAMINATION: XR CHEST CLINICAL INFORMATION: Cough COMPARISON: Previous chest x-ray most recent October 2023 TECHNIQUE: Frontal view of the chest was obtained. FINDINGS: The cardiac and mediastinal contours are stable. Lucinda clip projects over the heart. There are postsurgical changes and volume loss to the left hemithorax. There are pleural and parenchymal changes at the left lung base similar to right or exams. The right lung is clear. No right pleural effusion. No pneumothorax. Degenerative changes of the spine. XR/XR chest 1V IMPRESSION: Postsurgical changes to the left hemithorax and pleural and parenchymal changes at the left lung base similar to previous exams.
[2024-01-04 18:51] VITALS: BP 151/70; BP 170/108; PULSE 105; PULSE 99; RESP 16; TEMP 36.6; O2SAT 96; O2SAT 97; BMI 24.3
--- NOTE | 2024-01-04 19:39 | ED_ITS ---
HPI - General Adult General Chief complaint: General Medical Stated complaint: LARGE R LEG HEMATOMA, +THINNERS Time Seen by Provider: 01/04/24 19:39 History of Present Illness ED Provider: Kelsey THOMAS narrative: The patient is an 78-year-old woman with a history of Leiden factor 5 and the antiphospholipid syndrome who has also had DVTs and PEs. The patient says that this afternoon at around 5PM she was at a grocery store when she accidentally struck her lower lagos against a shopping cart. She says she was able to walk after the injury but that it hurt to walk. She went home and noticed that she had already developed a fairly large bruise over the lagos. Over the next few hours the bruise spread dramatically mostly over the lateral portion of the right lower leg. She developed a lot of discomfort and ultimately called an ambulance and was brought to the hospital. She has no numbness or tingling in the feet. She is able to move the leg but it is painful. Related Data Home Medications ?Medication ?Instructions ?Recorded ?Confirmed levothyroxine 25 mcg tablet 25 mcg PO MOTUWETHFR@0600 06/14/22 11/20/23 (Synthroid) CPAP (CPAP Machine/Device) 06/30/22 11/20/23 Oxygen Home Use 06/30/22 11/20/23 nebulizers 06/30/22 11/20/23 warfarin 1 mg tablet (Jantoven) mg PO 06/30/22 11/20/23 epinephrine 0.3 mg/0.3 mL IM 07/14/22 11/20/23 injection, auto-injector diazepam 5 mg tablet 5 mg PO BID Anxiety and Sleep 11/21/22 11/20/23 triamcinolone acetonide 0.1 % 1 appl topical BID-TID 05/29/23 11/20/23 topical cream prednisone 2.5 mg tablet 2.5 mg PO Q OTHER DAY 08/09/23 11/20/23 triamcinolone acetonide 0.1 % topical 08/25/23 11/20/23 topical ointment furosemide 40 mg tablet 80 mg PO BID 11/28/23 Previous Rx's ?Medication ?Instructions ?Recorded meclizine 25 mg tablet 25 mg PO TID PRN dizziness 14 days 09/12/22 #42 tabs albuterol sulfate 2.5 mg/3 mL 2.5 mg (3 mL) inhalation Q6H PRN 09/21/22 (0.083 %) solution for nebulization shortness of breath or wheezing 30 days #180 mL Advair HFA 230 mcg-21 2 puff inhalation BID 90 days #36 03/07/23 mcg/actuation aerosol inhaler grams (fluticasone propion-salmeterol) rosuvastatin 10 mg tablet 10 mg PO Q OTHER DAY #45 tabs 06/26/23 levocetirizine 5 mg tablet 5 mg PO DAILY 90 days #90 tabs 07/20/23 montelukast 10 mg tablet 10 mg PO DAILY #90 tabs 07/20/23 potassium chloride 20 mEq oral 20 meq PO DAILY #50 ea 07/20/23 packet trazodone 50 mg tablet 100 mg (2 x 50 mg) PO BEDTIME #180 07/20/23 tabs metoprolol succinate 50 mg 50 mg PO BID #120 tabs 08/14/23 tablet,extended release 24 hr (Toprol XL) acetaminophen 300 mg-codeine 15 mg 1 tab PO Q8H PRN pain 10 days #30 10/13/23 tablet tabs cefpodoxime 200 mg tablet 200 mg PO BID 14 days #28 tabs 11/02/23 codeine 10 mg-guaifenesin 100 mg/5 5 ml PO Q6H PRN cough 10 days #150 11/14/23 mL oral liquid mL chlorhexidine gluconate 0.12 % 15 ml buccal BID 14 days #420 mL 01/02/24 mouthwash Allergies Allergy/AdvReac Type Severity Reaction Status Date / Time avocado [AVOCADO] Allergy Mild ITCHY Verified 01/04/24 18:53 THROAT, RASH azithromycin [AZITHROMYCIN] Allergy Mild ITCHY Verified 01/04/24 18:53 THROAT, RASH barium iodide [BARIUM IODIDE] Allergy Mild ITCHY Verified 01/04/24 18:53 THROAT, RASH barium sulfate Allergy Mild Itch Verified 01/04/24 18:53 bee pollen [BEE STINGS] Allergy Mild ITCHY Verified 01/04/24 18:53 THROAT, RASH ciprofloxacin [From CIPRO] Allergy Mild ITCHY Verified 01/04/24 18:53 THROAT, RASH clarithromycin [From BIAXIN] Allergy Mild ITCHY Verified 01/04/24 18:53 THROAT, RASH diatrizoate meglumine Allergy Mild ITCHY Verified 01/04/24 18:53 [From GASTROGRAFIN] THROAT, RASH diatrizoate sodium Allergy Mild ITCHY Verified 01/04/24 18:53 [From GASTROGRAFIN] THROAT, RASH diclofenac [From VOLTAREN] Allergy Mild ITCHY Verified 01/04/24 18:53 THROAT, RASH erythromycin base Allergy Mild ITCHY Verified 01/04/24 18:53 [ERYTHROMYCIN BASE] THROAT, RASH gentamicin [GENTAMICIN] Allergy Mild ITCHY Verified 01/04/24 18:53 THROAT, RASH Iodinated Contrast Media Allergy Mild ITCHY Verified 01/04/24 18:53 [IVP DYE] THROAT, RASH levofloxacin [From LEVAQUIN] Allergy Mild ITCHY Verified 01/04/24 18:53 THROAT, RASH metronidazole [From FLAGYL] Allergy Mild ITCHY Verified 01/04/24 18:53 THROAT, RASH moxifloxacin [From AVELOX] Allergy Mild ITCHY Verified 01/04/24 18:53 THROAT, RASH Penicillins [PENICILLINS] Allergy Mild ITCHY Verified 01/04/24 18:53 THROAT, RASH shrimp [SHRIMP] Allergy Mild ITCHY Verified 01/04/24 18:53 THROAT, RASH Sulfa (Sulfonamide Allergy Mild ITCHY Verified 01/04/24 18:53 Antibiotics) THROAT, [SULFA (SULFONAMIDE RASH ANTIBIOTICS)] vancomycin [VANCOMYCIN] Allergy Mild ITCHY Verified 01/04/24 18:53 THROAT, RASH clindamycin AdvReac Intermediate Unknown Verified 01/04/24 18:53 Review of Systems 2 Review of Systems: Yes all other systems are reviewed and are negative PMFSH Past Medical History Medical History (Updated 01/04/24 @ 22:08 by Sandip Cole MD) Complex sleep apnea syndrome Chronic hypercapnic respiratory failure Leg pain Anemia Tachycardia DVT (deep venous thrombosis) COPD (chronic obstructive pulmonary disease) Compression fracture of body of thoracic vertebra ASD (atrial septal defect) Pleuritic chest pain History of COVID-19 Chronic anticoagulation Hypothyroidism GERD (gastroesophageal reflux disease) Hyperlipidemia Hypertension Factor 5 Leiden mutation, heterozygous History of non-ST elevation myocardial infarction (NSTEMI) Hypoxia Anxiety PTSD (post-traumatic stress disorder) Hemoptysis Dyspnea Tracheobronchitis CLARA positive Diverticulitis Allergic bronchitis (HFpEF) heart failure with preserved ejection fraction Subarachnoid bleed Insomnia Anti-phospholipid antibody syndrome Hypogammaglobulinemia Chronic respiratory failure Arterial insufficiency of lower extremity Complex regional pain syndrome i of right lower limb Post herpetic neuralgia Pulmonary hypertension Pericardial effusion Pulmonary emboli Pleural effusion Radiation fibrosis of lung Pneumonitis Pulmonary nodules KANDY treated with BiPAP Lung cancer Surgical History History of colonoscopy History of lung surgery History of tonsillectomy History of hysterectomy S/P mitral valve clip implantation History of cardiac cath Family History Family History Sister No problems noted. Mother Cardiovascular disease Daughter Tachycardia Other KANDY (obstructive sleep apnea) Social History Social History Household Members: None Housing: House Do you presently have visiting nurse or other home services: Yes Unable to assess alcohol history related to: Unknown Alcohol intake: former Comment: stand by assist with ambulation Patient Tobacco Use Status: Never used Tobacco Second Hand Smoke Exposure: No Advance Directives: Yes Advance Directives on File: Yes Advance Directives Date on File: 06/15/22 service: No Current occupational status: retired Physical Exam ED Vital Signs: Vital Signs - 24 hr 01/04/24 18:51 01/04/24 20:24 Temperature 97.9 F 98.7 F Pulse Rate 99 82 Respiratory Rate 16 16 Blood Pressure 151/70 H 147/76 H Pulse Oximetry 97 99 Oxygen Delivery Method Nasal Cannula Room Air BMI result Body Mass Index 24.3 Const Other: The patient is a thin 78-year-old woman. She appears somewhat chronically ill. She has a dramatic amount of bruising to her right lower leg. She does not appear in overt discomfort HENMT Other: Face is symmetrical. Mucous membranes moist Eyes Other: Pupils are round equal, conjunctivae clear Neck Other: No JVD Resp Other: Possibly some minimal wheezes bilaterally but no significant adventitious sounds. No increased work of breathing. Cardio Other: The patient has a regular rate and rhythm with no murmur. GI Other: The abdomen is soft and nontender Skin Other: The patient has skin is remarkable for a great deal of ecchymosis to the right lower leg which is mostly on the lateral aspect of the right lower leg. There is also some ballooning out of the skin consistent with a blistering phenomenon. The skin is intact Neuro Other: The patient is awake and alert with a normal mental status. Cranial nerves are intact. She has intact sensation in the right foot. She can move the right leg. She is able to flex and extend the right knee somewhat. He is able to plantar flex and dorsiflex the ankle somewhat. She can wiggle all of her toes. Extrem Other: The patient has a great deal of bruising and ecchymosis to the right lower leg this is mostly on the lateral aspect of the leg. There is ballooning out of the skin on the lateral aspect consistent with what I think is a blistering phenomenon from underlying bruising. I do not think she has clear compartmental tenderness. She has some discomfort with passive dorsiflexion of the ankle but it does not seem severe. Medical Decision Making Medical Decision Making MDM Narrative: The patient is an 78-year-old woman on warfarin because of a history of factor 5 Leiden, the antiphospholipid syndrome, and history of DVT and PE. She had what seems to be a relatively trivial injury when she struck the anterior aspect of her lower lagos at a grocery store. She has subsequently developed dramatic bruising the leg. She has a good dorsalis pedis pulse. She seems neurologically intact in the foot. She seems to have developed a great deal of bruising from this relatively low impact injury but I do not think this is a kind of injury that would really put someone at risk for compartment syndrome. She seems relatively comfortable when she has not moving the leg. We elevated the leg and applied ice packs. I consulted with vascular surgery who recommends ongoing elevation and ice as well as Bang wrap. We will not be reversing her anticoagulation tonight. Her INR is 1.8. The patient was very anxious about what was going to happen with her. She is having a somewhat similar episode a few years ago when she was hospitalized at [facility]. She says that she had a ruptured hematoma at that time that had to go to the OR and that she had necrotic tissue. I explained that I felt that initial management in his case clearly seem operative and that initial conservative management seemed reasonable as I had discussed with the vascular surgeon Dr. Ratliff. At the patient's request I contacted [facility] to see if there was any chance she could be transferred there. [facility] was closed transfers. The patient ultimately seemed resigned to staying here. I have wrapped the leg with an Bang wrap. I have placed a large ice bag over the patient's leg. She requested something for anxiety. She typically takes diazepam. She was given 2 mg of diazepam. Lab Data 01/04/24 19:50 01/04/24 19:50 Labs: Lab Results 01/04/24 Range/Units 19:50 WBC 11.2 H (4.8-10.8) X10*3/uL RBC 3.45 L (4.20-5.50) X10*6/uL Hgb 11.5 L (12.0-16.0) g/dl Hct 34.2 L (37.0-47.0) % MCV 99.1 H (80.0-98.0) fL MCH 33.3 H (27.0-33.0) pg MCHC 33.6 (31.0-35.0) g/dl RDW 13.5 (11.0-16.0) % Plt Count 201 (160-400) X10*3/uL MPV 11.0 (9.4-12.3) fL Immature Gran % (Auto) 0.8 H (0.0-0.4) % Neut % (Auto) 79.5 H (45-73) % Lymph % (Auto) 9.6 L (20-40) % Traverse % (Auto) 8.6 (2-11) % Eos % (Auto) 0.8 (0-4) % Baso % (Auto) 0.7 (0-2) % Lymph # (Auto) 1.1 L (1.2-4.9) X10*3/uL Traverse # (Auto) 1.0 (0.1-1.2) X10*3/uL Eos # (Auto) 0.1 (0.0-0.4) X10*3/uL Baso # (Auto) 0.1 (0.0-0.2) X10*3/uL Abs Immat Gran (auto) 0.09 H (0.00-0.03) X10*3/uL Absolute Neuts (auto) 8.9 H (2.0-8.3) x10*3/uL Absolute Nucleated RBC 0.000 (0.0-0.012) X10*3/uL Nucleated RBC % (auto) 0.0 (0.0-0.2) /100WBC PT 22.0 H (11.1-13.3) SEC INR 1.8 H (0.9-1.1) Sodium 138 (135-145) mmol/L Potassium 3.8 (3.3-5.1) mmol/L Chloride 100 (96-108) mmol/L Carbon Dioxide 29 (22-29) mmol/L Anion Gap 13 (12-20) BUN 33 H (9-16) mg/dL Creatinine 0.81 (0.5-1.4) mg/dL Estim Creat Clear Calc 45.8 Estimated GFR > 60 Random Glucose 147 H (60-115) mg/dL Calcium 10.4 H (8.4-10.2) mg/dL Total Bilirubin 0.5 (0.0-1.0) mg/dL Direct Bilirubin 0.2 (0.0-0.5) mg/dL AST 30 (5-31) U/L ALT 25 (0-31) U/L Alkaline Phosphatase 64 (39-117) U/L Total Protein 6.6 (6.5-8.0) g/dL Albumin 3.6 (3.5-5.0) g/dL Blood Type A Positive Antibody Screen NEGATIVE Discharge Plan Discharge Clinical Impression: Hematoma of right lower leg, Warfarin anticoagulation Patient Disposition: Admitted As Inpatient
[2024-01-04 19:56] LABS: MANUAL DIFF FLAG NO
[2024-01-04 19:58] LABS: Basophils Absolute Auto 0.1 X10*3/uL (0.0-0.2); Basophils Percent Auto 0.7 % (0-2); Eosinophils Absolute Auto 0.1 X10*3/uL (0.0-0.4); Eosinophils Percent Auto 0.8 % (0-4); Hematocrit 34.2 % (37.0-47.0); Hemoglobin 11.5 g/dl (12.0-16.0); Imm Gran Abs Auto 0.09 X10*3/uL (0.00-0.03); Imm Gran Pct Auto 0.8 % (0.0-0.4); Lymphocytes Absolute Auto 1.1 X10*3/uL (1.2-4.9); Lymphocytes Percent Auto 9.6 % (20-40); Mean Corpuscular HGB Conc 33.6 g/dl (31.0-35.0); Mean Corpuscular Hemoglobin 33.3 pg (27.0-33.0); Mean Corpuscular Volume 99.1 fL (80.0-98.0); Monocytes Percent Auto 8.6 % (2-11); Neutrophils Absolute Auto 8.9 x10*3/uL (2.0-8.3); Neutrophils Percent Auto 79.5 % (45-73); Platelet Count 201 X10*3/uL (160-400); Red Blood Count 3.45 X10*6/uL (4.20-5.50); Red Cell Distribution Width 13.5 % (11.0-16.0); White Blood Count 11.2 X10*3/uL (4.8-10.8)
--- OUTSIDE RECORDS SUMMARY | 2024-01-04 20:17 | XMS_ITS | Continuity of Care Document ---
Author Organization [facility] Address [address] [place] [address]- Care Team Providers Care Job Boss Name Role Phone Azeb STARK, Caitlyn Thompson Primary Care Physician [phone] Encounter [facility] R [id number] Date(s): 12/19/23 - 12/26/23 [facility] [address] [place] [address]- Encounter Diagnosis Forearm laceration(Discharge Diagnosis) - 12/19/23 Glued skin wound(Discharge Diagnosis) - 12/19/23 CHF - Congestive heart failure(Discharge Diagnosis) - 12/19/23 Metallic taste(Discharge Diagnosis) - 12/19/23 Attending Physician: Jennifer STARK, [place] Allergies, Adverse Reactions, Alerts Substance Reaction Severity [...] Electronically, STOP... Start Date: 06/29/24 Status: Ordered diazepam 5 mg oral tablet See Instructions, TAKE ONE-HALF TABLET BY MOUTH FOUR TIMES A DAY NEEDED FOR ANXIETY AND SLEEP, #30 tablet, Refills 3, Tot. Refills 3, Maintenance, 12/20/23 11:07:00 EDT, Instructions Replace Required Details, Route to Pharmacy Electronically, STOP... Start Date: 12/20/23 Stop Date: 01/03/26 Status: Ordered docusate sodium 100 mg oral [...] Maintenance, 01/26/18 16:34:30 EDT, Aerosol Start Date: 7/20/18 Status: Ordered Vitamin C By Mouth, Daily, [...] Effective Dates Health Status Clinical Service Informant Forearm laceration Discharge Diagnosis 12/19/23 Glued skin wound Discharge Diagnosis 12/19/23 CHF - Congestive heart failure Discharge Diagnosis 12/19/23 Metallic taste Discharge Diagnosis 12/19/23 Vital Signs Most recent to oldest [Reference Range]: 1 Height 158 cm (12/19/23 11:49 AM) Weight 60.0 kg (12/19/23 11:49 AM) Oxygen Saturation [94-100 %] 98 % (12/19/23 11:49 AM) Pulse Rate [55-90 bpm] 77 bpm (12/19/23 11:49 AM) Body Mass Index [18.5-24.99 kg/m2] 24.03 kg/m2 (12/19/23 11:49 AM) Blood Pressure [90-138/55-84 mm Hg] 107/ 66mm Hg (12/19/23 11:49 AM) Temperature [96.8-100.4 DegF] 98.2 DegF (12/19/23 11:49 AM) Liters per Minute 2 L/min (12/19/23 11:49 AM) Mode of Delivery (Oxygen) Nasal cannula (12/19/23 11:49 AM) Blood pressure sites Arm, left (12/19/23 11:49 AM) Dry Weight 60.0 kg (12/19/23 11:49 AM) Weight Obtained Via Standing scale (12/19/23 11:49 AM) Dry Weight Obtained Via Standing scale (12/19/23 11:49 AM) Social History Social History Type Response Smoking Status Never smoker; Tobacc o user in household: No entered on: 04/05/17 Sex Note * Yolande Lauren: PERFORM Event Display: Patient Education/Instruction Authored Date: Ambulatory Adult Visit Summary [facility] [address] [place] [address] Name: CINDA WATSON : 1945?? Visit: 12/19/2023 11:32?? Ambulatory Visit Instructions ?? Your Care Team Primary Care Provider Caitlyn Bowie MD? This Visit Provider Jennifer STARK, [place] Your Diagnosis Forearm laceration Glued skin wound CHF - Congestive heart failure Metallic taste Vitals Signs Temperature: 98.2 DegF Height: 158 cm Pulse Rate: 77 bpm Weight: 60 kg Systolic Blood Pressure: 107 mm Hg Body Mass Index: 24.03 kg/m2 Diastolic Blood Pressure: 66 mm Hg Body surface area: 1.62 Oxygen Saturation: 98 % ?? What to do next Instructions From Your Provider How do I care for a wound treated with skin glue? Skin glue is a special medical glue used to close wounds. It can be used on its own or with stitches or adhesive tape. It forms a protective waterproof covering over your wound. ?? When is skin glue used? Skin glue is usually used for cuts or wounds that: ?? are small or minor are up to 5cm long have straight edges that can be easily pulled together Skin glue is often used to close wounds on: ?? the face or head some parts of the arms and legs the trunk of the body (torso) Skin glue isn't suitable for wounds over joints, like your knees, groin or hands. ?? How long does skin glue stay on? Skin glue is applied as a liquid or paste to the edges of the wound. ?? It takes only a few minutes to set. ?? The glue usually forms a scab that peels or falls off in 5 to 10 days. ?? The scar should take about 6 months to fade. ?? How to care for a wound closed with skin glue Your doctor or nurse will give you advice about caring for a wound closed with skin glue. ?? Skin glue is waterproof, but general advice is to: ?? avoid touching the glue for 24 hours try to keep the wound dry for the first 5 days have showers rather than baths, to avoid soaking the wound use a shower cap if the wound is on the head pat the wound dry if it gets wet ??? do not rub it If the wound is on your head, you should be able to wash your hair after 5 days. ?? Things to avoid during the first 5 days: ?? don't stick a plaster on the skin glue don't put creams or lotions on the glue don't wear clothing that could rub against the glue don't pick at the glued area don't brush hair around the glued area When to get help Most wounds closed with skin glue heal normally. ?? You should seek medical attention if: ?? your wound splits open or starts to bleed you think your wound may be infected You might have an infection if: ?? the wound becomes more red or swollen the pain or soreness in your wound gets worse pus or blood leaks from your wound you have a high temperature, or you feel hot and shivery Scheduled Follow-Up Appointments 2023 11:00 AM EDT ?? With: Azeb STARK, Caitlyn Thompson Where: [facility] [address] [place] [address]- Status: Pending 2023 8:00 AM EDT ?? With: Donya HAJI, [place] Where: [facility] [address] [place] [address]- Status: Pending Follow-Up Appointments Follow Up with??[facility] When:??Only if needed Why: As needed or if symptoms persist Medications The list below reflects the information in our records and provided by you today along with any changes made during this visit. Please continue your medications until treatment is completed or stopped by your provider. If this is different from the information you have or there are other questions,please contact the prescribing provider. What How Much When Why Instructions Unchanged Albuterol (albuterol 0.083% inhalation solution) 3 Milliliter Inhalation Every 6 hours as needed for for wheezing Unchanged Albuterol (Ventolin HFA 108 mcg/ inh inhalation aerosol with adapter) 2 puff(s) Inhalation Every 6 hours as needed for Wheezing/Shortness of Breath Unchanged Ascorbic Acid (Vitamin C) Oral Daily Unchanged Diazepam (diazepam 5 mg oral tablet) See instructions TAKE ONE-HALF TABLET BY MOUTH FOUR TIMES A DAY NEEDED FOR ANXIETY AND SLEEP ?? Unchanged Docusate (docusate sodium 100 mg oral capsule) 1 capsule Oral Twice a day Unchanged Durable Medical Equipment (Orthotics) See instructions Molded orthotics for bilateral feet. ?? Diagnosis: Arthritis of feet with pain ?? Unchanged elderberry (elderberry oral liquid) 15 Milliliter Oral Daily Unchanged EPINEPHrine (EPINEPHrine 0.3 mg injectable solution) 0.3 Milligram Intramuscular Once as needed for Anaphylactic Reaction Unchanged EPINEPHrine (EpiPen 2-Daniel 0.3 mg injectable kit) 0.3 Milligram Intramuscular Once may repeat if necessary ?? Unchanged Ferrous Gluconate (ferrous gluconate 324 mg oral tablet) 1 tab(s) Oral Daily WITH BREAKFAST ?? Unchanged Fluticasone-Salmeterol (Advair HFA 230 mcg / 21 mcg) 2 puff(s) Inhalation Twice a day Unchanged Furosemide 40 Milligram Twice a day Unchanged Gabapentin (gabapentin 100 mg oral capsule) 1 capsule Unchanged Levothyroxine (levothyroxine 25 mcg (0.025 mg) oral capsule) 1 capsule Oral Daily Monday through Monday ?? Unchanged Levothyroxine (levothyroxine 50 mcg (0.05 mg) oral capsule) 1 capsule Oral Daily Monday & Monday's ?? Unchanged Metoprolol (Metoprolol Succinate ER 25 mg oral tablet, extended release) 3 tablets Oral Twice a day Duration: 30 Days TAKE ONE TABLET BY MOUTH TWICE A DAY WITH BREAKFAST AND DINNER ?? Unchanged Montelukast (Singulair 10 mg oral tablet) 1 tab(s) Oral Daily in PM Dr. Kelly ?? Unchanged Omeprazole (omeprazole 40 mg oral enteric coated capsule) 1 capsule Oral Daily as needed for as needed Unchanged Potassium Chloride (potassium chloride 20 mEq oral powder for reconstitution) DISSOLVE AND TAKE ONE PACKET BY MOUTH EVERY DAY ?? Unchanged PredniSONE (predniSONE 5 mg oral tablet) 2.5 Milligram Oral Every other day Unchanged Rosuvastatin (rosuvastatin 10 mg oral tablet) 1 tab(s) Oral Monday, Monday and Monday Unchanged Trazodone (traZODone 50 mg oral tablet) 2 tab(s) Oral Daily at Bedtime Dr. Kelly ?? Unchanged Triamcinolone Once Unchanged Warfarin (warfarin 1 mg oral tablet) See instructions Embolism take 2-3 ??tablets By Mouth Daily as directed by the anticoagulation clinic ?? Medications and Immunizations Administered Medications Given During Visit No medications given during this visit.?? Allergies (NKA means No Known Allergies) Avelox Avocado Bee Stings Biaxin Contrast Dye Flagyl Gastrografin Levaquin??(Avocado) Mold Novocain Shrimp Voltaren Zithromax barium sulfate busPIRone??(Feeling of throat tightness, Headache, Dizziness) ciprofloxacin clindamycin??(throat tightening) erythromycin gentamicin iodinated radiocontrast dyes ipratropium morphine penicillin sulfa drugs vancomycin Common Emergency Awareness Tips IS IT A [...] are strongly encouraged to quit. Please call [facility] [employer] Link at [phone] or [phone] ([phone]) or log in to [email or web address] for referrals to smoking cessation programs. ?? The National Suicide Prevention Hotline is available 30/01 if you or someone you know needs to find a reason to keep living. By calling 6-716-506-Capsule.fm (3549) you'll be connected to a skilled, trained counselor at a crisis center in your area. [facility] [employer] Portal You can view and manage your care through the patient portal or by using a health care alonso of your choosing. [employer] is a website that allows you to securely view your medical information including your hospital discharge summary, office visit summaries, medications and follow-up visits. You can also request appointments, renew medications, and request access to your medical information using a health care alonso of your choosing, or just ask a question. You can enroll at [email or web address] or register during your next office visit. [facility], in keeping with [facility] guidance, no longer requires face masks [...] medical provider or home test kit. ?? Disclaimer: The information provided is of a general nature and is intended to be used in conjunction with the recommendations and advice of your health care practitioner. Every effort has been made to ensure that the information provided is accurate and complete at the time it is provided to you however, as your needs change, or, as new information becomes available, different or additional instructions may be required. ?? If you have questions, please consult with your primary care provider or pharmacist, as appropriate. This information is not intended to serve as substitution for assessment and evaluation by a qualified health care provider. If you do not have a primary care provider, you may find a [facility] provider by calling [facility] Link at [phone]. Patient Care team information Care Team Personnel Name: Val Wynne Position: [facility] Onco RN Member Role: Primary Care Nurse Name: Shilpi Mattson Position: Reference Physician Member Role: Primary Care Nurse Address: Address: [address] [address]- [place] Name: Toyin Doherty RN Position: [facility] RN Member Role: Primary Care Nurse Name: Eben Hernandez NP Position: [facility] Associate Professional Member Role: Lifetime Consulting Provider Address: Address: [address] [place] [address]- [place] Name: Alejandrina Turner RN Position: [facility] RN Member Role: Primary Care Nurse Name: Zoraida Felix RN Position: [facility] ED RN W/OE and Tasks Member Role: Primary Care Nurse Name: Jaye Harley Position: [facility] [place] Blueprint Processor Member Role: Industrial Engineering Technician Name: Daphne Hooker RN Position: [facility] RN Member Role: Primary Care Nurse Name: Caitlyn Bowie MD Position: [facility] Physician - Primary Care Member Role: PCP Address: Address: [address] [place] [address]- [place] Name: Kiki Abdi RN Position: [facility] RN Member Role: Primary Care Nurse Name: Marry Reza Position: [facility] RN Member Role: Primary Care Nurse Name: Veronica Hurst [place] Position: [facility] JAY Office Staff Member Role: Lifetime Consulting Physician Name: Maddie Herrera RN Position: [facility] AMB Nurse Member Role: Primary Care Nurse Name: Yudith Herrera RN Position: [facility] Onco RN Member Role: Primary Care Nurse Name: Raegan Baptiste RN Position: [facility] RN Member Role: Primary Care Nurse Name: She Pool RN Position: [facility] RN Member Role: Primary Care Nurse Name: Kaila Latham RN Position: [facility] RN Member Role: Primary Care Nurse Name: Julio C Bahena RN Position: [facility] RN Member Role: Primary Care Nurse Name: Nasima Heredia RN Position: [facility] RN Member Role: Primary Care Nurse Name: Katherine Nixon PharmD Position: [facility] Associate Professional Member Role: Lifetime Consulting Provider Address: Address: [address] [place] [address]- Name: Daphne Barton RN Position: [facility] RN Member Role: Primary Care Nurse Name: Katherine Long RN Position: [facility] RN Member Role: Primary Care Nurse Name: Norma Serrano RN Position: [facility] RN Member Role: Primary Care Nurse Name: Seven Kelly RN Position: [facility] ED RN W/OE and Tasks Member Role: Primary Care Nurse Name: Fani Perez RN Position: [facility] RN Member Role: Primary Care Nurse Name: Hattie Brewster RN Position: [facility] RN Member Role: Primary Care Nurse Name: Kelly Hernandez RN Position: [facility] RN Member Role: Primary Care Nurse Name: Pallavi Wylie LPN Position: [facility] RN Member Role: Primary Care Nurse Name: Parris Zuluaga RN Position: [facility] RN Member Role: Primary Care Nurse Care Team Related Persons Name: ZENAIDA FLORES Address: [place] [address] Name: TIA RIVERS Address: [place] [address] Name: JOHANN RETANA Address: [place] [address]
[2024-01-04 20:19] LABS: Alanine Aminotransferase 25 U/L (0-31); Albumin Level 3.6 g/dL (3.5-5.0); Alkaline Phosphatase 64 U/L (39-117); Anion Gap 13 (12-20); Aspartate Amino Transferase 30 U/L (5-31); Bilirubin Direct 0.2 mg/dL (0.0-0.5); Bilirubin Total 0.5 mg/dL (0.0-1.0); Blood Urea Nitrogen 33 mg/dL (9-16); Calcium 10.4 mg/dL (8.4-10.2); Carbon Dioxide 29 mmol/L (22-29); Chloride 100 mmol/L (96-108); Creatinine Clr Calc Pharmacy 45.8; Estimated Glomerular Filt Rate > 60; Glucose Random 147 mg/dL (60-115); Potassium 3.8 mmol/L (3.3-5.1); Sodium 138 mmol/L (135-145); Total Protein 6.6 g/dL (6.5-8.0)
[2024-01-04 20:24] VITALS: BP 147/76; PULSE 82; RESP 16; TEMP 37.1; O2SAT 99
[2024-01-04 20:24] LABS: INTERNATIONAL NORM RATIO 1.8 (0.9-1.1)
--- OUTSIDE RECORDS SUMMARY | 2024-01-04 20:35 | XMS_ITS | Continuity of Care Document ---
Author Organization [facility] Address [address] [place] [address]- Care Team Providers Care Recreational Aide Name Role Phone Caitlyn Bowie MD Primary Care Physician [phone] Encounter [facility] Date(s): 08/28/23 - 12/22/23 [facility] [address] [place] [address] Discharge Disposition: A-D/C Home Attending Physician: [...] oldest [Reference Range]: 1 Height 159 cm (09/01/23 10:16 AM) Weight 59.4 kg (09/01/23 10:16 AM) Oxygen Saturation [94-100 %] 95 % (09/01/23 10:16 AM) Pulse Rate [55-90 bpm] 92 bpm *H* (09/01/23 10:16 AM) Body Mass Index [18.5-24.99 kg/m2] 23.5 kg/m2 (09/01/23 10:16 AM) Blood Pressure [90-138/55-84 mm Hg] 149/ 69mm Hg *H* (09/01/23 10:16 AM) Temperature [96.8-100.4 DegF] 97.8 DegF (09/01/23 10:16 AM) Mode of Delivery (Oxygen) Room air (09/01/23 10:16 AM) Blood pressure sites Arm, right (09/01/23 10:16 AM) Temperature Route Oral (09/01/23 10:16 AM) Dry Weight 59.4 kg (09/01/23 10:16 AM) Weight Obtained Via Standing scale (09/01/23 10:16 AM) Dry Weight Obtained Via Standing scale (09/01/23 10:16 AM) Social History Social History Type Response Smoking Status Never smoker; Tobacc o user in household: No entered on: 04/05/17 Sex Patient Care team information Care Team Personnel Name: Val Wynne Position: [facility] Onco RN Member Role: Primary Care Nurse Name: Shilpi Mattson Position: Reference Physician Member Role: Primary Care Nurse Address: Address: [address] [place] [address]- Name: Toyin Doherty RN Position: [facility] RN Member Role: Primary Care Nurse Name: Eben Hernandez NP Position: [facility] Associate Professional Member Role: Lifetime Consulting Provider Address: Address: [address] [place] [address]- Name: Alejandrina Turner RN Position: [facility] RN Member Role: Primary Care Nurse Name: Zoraida Felix RN Position: [facility] ED RN W/OE and Tasks Member Role: Primary Care Nurse Name: Jaye Harley Position: [facility] [place] Window Decorator Member Role: Stumper Feller Name: Daphne Hooker RN Position: [facility] RN Member Role: Primary Care Nurse Name: Caitlyn Bowie MD Position: [facility] Physician - Primary Care Member Role: PCP Address: Address: [address] [place] [address]- Name: Kiki Abdi RN Position: [facility] RN Member Role: Primary Care Nurse Name: Marry Reza Position: [facility] RN Member Role: Primary Care Nurse Name: Veronica Hurst [place] Position: [facility] JAY Office Staff Member Role: Lifetime Consulting Physician Name: Maddie Herrera RN Position: [facility] AMB Nurse Member Role: Primary Care Nurse Name: Yudith Herrera RN Position: [facility] Onco RN Member Role: Primary Care Nurse Name: Raegan Baptiste RN Position: [facility] RN Member Role: Primary Care Nurse Name: She Pool RN Position: [facility] RN Member Role: Primary Care Nurse Name: Kaila Latham RN Position: [facility] RN Member Role: Primary Care Nurse Name: Julio C Bahena RN Position: [facility] RN Member Role: Primary Care Nurse Name: Nasima Heredia RN Position: [facility] RN Member Role: Primary Care Nurse Name: Katherine Nixon PharmD Position: [facility] Associate Professional Member Role: Lifetime Consulting Provider Address: Address: [address] [place] [address]- Name: Daphne Barton RN Position: [facility] RN Member Role: Primary Care Nurse Name: Katherine Long RN Position: [facility] RN Member Role: Primary Care Nurse Name: Norma Serrano RN Position: [facility] RN Member Role: Primary Care Nurse Name: Seven Kelly RN Position: [facility] ED RN W/OE and Tasks Member Role: Primary Care Nurse Name: Fani Perez RN Position: [facility] RN Member Role: Primary Care Nurse Name: Hattie Brewster RN Position: [facility] RN Member Role: Primary Care Nurse Name: Kelly Hernandez RN Position: [facility] RN Member Role: Primary Care Nurse Name: Pallavi Wylie LPN Position: [facility] RN Member Role: Primary Care Nurse Name: Parris Zuluaga RN Position: [facility] RN Member Role: Primary Care Nurse Name: Samira STARK(Hem/Onc)Christo Position: [facility] Physician - Oncology Med Service: Hematology & Oncology Member Role: Admitting Physician Address: Address: [address] [place] [address] [facility] [place] [address]- Care Team Related Persons Name: MARK ZENAIDA Address: [place] [address] Name: TIA RIVERS Address: [place] [address] Name: JOHANN RETANA Address: [place], [place]
--- OUTSIDE RECORDS SUMMARY | 2024-01-04 20:42 | XMS_ITS | Continuity of Care Document ---
Author Organization [facility] Address [address] [place] [address]- Care Team Providers Care Accounts Payable Associate Name Role Phone Caitlyn Bowie MD Primary Care Physician [phone] [place] [facility] Date(s): 11/23/23 - 12/23/23 [facility] [address] [place], [place] [address] Allergies, Adverse Reactions, Alerts Substance Reaction Severity Status ciprofloxacin Active clindamycin throat tightening Active erythromycin Active penicillin 1 Active busPIRone Feeling of throat ti ghtness Headache Dizziness Active barium sulfate Active sulfa drugs Active gentamicin Active vancomycin Active ipratropium Active morphine Active iodinated radiocontrast dyes Active Biaxin Active Voltaren Active Zithromax Active [...] Care Team Personnel Name: Val Wynne Position: [facility] Onco RN Member Role: Primary Care Nurse Name: Shilpi Mattson Position: Reference Physician Member Role: Primary Care Nurse Address: Address: [address] [place] [address] Name: Toyin Doherty RN Position: [facility] RN Member Role: Primary Care Nurse Name: Eben Hernandez NP Position: [facility] Associate Professional Member Role: Lifetime Consulting Provider Address: Address: [address] [place] [address]- Name: Alejandrina Turner RN Position: [facility] RN Member Role: Primary Care Nurse Name: Zoraida Felix RN Position: [facility] ED RN W/OE and Tasks Member Role: Primary Care Nurse Name: Jaye Harley Position: [facility] [place] Real Estate Attorney Member Role: Container Washer Name: Daphne Hooker RN Position: [facility] RN Member Role: Primary Care Nurse Name: Caityln Bowie MD Position: [facility] Physician - Primary Care Member Role: PCP Address: Address: [address] [place] [address]- Name: Kiki Abdi RN Position: [facility] RN Member Role: Primary Care Nurse Name: Marry Reza Position: [facility] RN Member Role: Primary Care Nurse Name: Veronica Hurst [place] Position: [facility] JAY Office Staff Member Role: Lifetime Consulting Physician Name: Maddie Herrera RN Position: [facility] AMB Nurse Member Role: Primary Care Nurse Name: Yudith Herrera RN Position: [facility] Onco RN Member Role: Primary Care Nurse Name: Raegan Baptiste RN Position: [facility] RN Member Role: Primary Care Nurse Name: She Pool RN Position: [facility] RN Member Role: Primary Care Nurse Name: Kaila Latham RN Position: [facility] RN Member Role: Primary Care Nurse Name: Julio C Bahena RN Position: [facility] RN Member Role: Primary Care Nurse Name: Nasima Heredia RN Position: [facility] RN Member Role: Primary Care Nurse Name: Katherine Nixon PharmD Position: [facility] Associate Professional Member Role: Lifetime Consulting Provider Address: Address: [address] [place] [address]- Name: Daphne Barton RN Position: [facility] RN Member Role: Primary Care Nurse Name: Katherine Long RN Position: [facility] RN Member Role: Primary Care Nurse Name: Norma Serrano RN Position: [facility] RN Member Role: Primary Care Nurse Name: Seven Kelly RN Position: [facility] ED RN W/OE and Tasks Member Role: Primary Care Nurse Name: Fani Perez RN Position: [facility] RN Member Role: Primary Care Nurse Name: Hattie Brewster RN Position: [facility] RN Member Role: Primary Care Nurse Name: Kelly Hernandez RN Position: [facility] RN Member Role: Primary Care Nurse Name: Pallavi Wylie LPN Position: [facility] RN Member Role: Primary Care Nurse Name: Parris Zuluaga RN Position: [facility] RN Member Role: Primary Care Nurse Care Team Related Persons Name: ZENAIDA FLORES Address: [place] [address] Name: TIA RIVERS Address: [place] [address] Name: JOHANN RETANA Address: [place] [address]
--- OUTSIDE RECORDS SUMMARY | 2024-01-04 20:43 | XMS_ITS | Patient Health Record ---
Author Organization [facility] Address [address] [place] [id number] Care Team Providers Care Change Booth Attendant Name Role Phone AzebShruti esquivelberly Primary Care Provider Cristian Fountain Unavailable [phone] ALLERGIES Allergen (clinical drug ingredient) Drug/Non Drug [...] confirmed Irritable bowel syndrome characterized by constipation (526155031) Problem Diverticulitis (K57.92) Active confirmed Diverticulitis (854333695) Problem GERD (gastroesophageal reflux disease) (K21.9) Active confirmed Gastroesophagea l reflux disease (247387731) PLAN OF TREATMENT No Information Insurance Providers Payer Name Payer Address Payer Phone Subscriber Number Group Number Insured Name Patient Relationship to Insured Coverage Start Date Coverage End Date MEDICARE OF [place] [address] [place] [address] [id number] SHIRLEY CINDA Self - patient is the insured [employer] ATT[employer] CLAIMS [address] [place] [address] [id number] DANIEL WATSONE Self - patient is the insured MEDICAL (GENERAL) HISTORY Medical History History ICD Code MD-04/2021-sees Dr. 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 Hogan at [facility]-has had EGD's with Dr. Gomes Pneumomias Hypothyroidism Surgical History Surgery Date(Month/Year) Tonsils and adenoids BOLA Lung cancer-Left lower lobectomy at [facility] [place], XRT, Chemo 2008
--- NOTE | 2024-01-04 22:44 | PM.IMHP ---
History of Present Illness Date of Service: 01/04/24 Attending physician on admission: Terrence Darden Chief Complaint: Right leg bruising and swelling Pt is an 78-year-old female with a complex PMH significant for CAD s/p NSTEMI, HFpEF, hx of subarachnoid hemorrhage, COPD, pulmonary hypertension, chronic hypercarbic respiratory failure on 2L supplemental home O2 prn, KANDY on BiPAP at night, hx of non-small cell lung cancer s/p chemo, radiation, and left upper lobe lobectomy, antiphospholipid antibody syndrome, hx of DVT/PE on Coumadin, and anxiety who presents to the ED for evaluation of right lower extremity pain, bruising, and swelling. Patient reports that she was at the grocery store earlier this evening when she accidentally hit her right lagos on the back of the shopping cart. Area immediately swelled to around the size of a golf ball, but patient was able to walk to her car and travel home though had some discomfort with walking. At home patient noted area of bruising and swelling dramatically increased over the next few hours, particularly on the lateral and superior aspect of her lagos. Patient also experienced increasing ?burning hot? pain across her entire leg. Eventually called EMS to bring her to the hospital for further evaluation. Patient denies numbness or tingling in her right lower extremity. Denies any other acute medical concerns or complaints. Of note, patient reports had a similar episode 5 years prior where she suddenly developed right lower extremity pain not associated with any trauma. Presented to [facility] ED where her lagos was wrapped and she was discharged home. Reports then fainted when she got home and came back [facility] ED where she was admitted to the hospital. States when bandage was removed had large hematoma on her right lower extremity which then ?burst? when she was getting prepped for surgical intervention. In the ED pt was hypertensive to 151/70, vitals otherwise stable. Labs were significant for H&H of 11.5/30.2 and INR 1.8, otherwise grossly unremarkable and baseline for patient. Chronically elevated leukocytosis of 11.2. No significant electrolyte abnormalities. Renal and hepatic function WNL. ED clinician contacted vascular surgery who suggested elevation, ice packs, Bang wraps, and holding Coumadin. Patient initially anxious about not being at a trauma center, though [facility] was contacted and not open for such transfers. Pt was treated with Valium. Pt will be admitted to the hospital for treatment and further evaluation of large right lower leg hematoma. Review of Systems Review of Systems: Right lower leg swelling, bruising, pain Denies numbness or tingling in extremities Patient otherwise has no acute medical complaints [facility] Medical History Complex sleep apnea syndrome Chronic hypercapnic respiratory failure Leg pain Anemia Tachycardia DVT (deep venous thrombosis) COPD (chronic obstructive pulmonary disease) Compression fracture of body of thoracic vertebra ASD (atrial septal defect) Pleuritic chest pain History of COVID-19 Chronic anticoagulation Hypothyroidism GERD (gastroesophageal reflux disease) Hyperlipidemia Hypertension Factor 5 Leiden mutation, heterozygous History of non-ST elevation myocardial infarction (NSTEMI) Hypoxia Anxiety PTSD (post-traumatic stress disorder) Hemoptysis Dyspnea Tracheobronchitis CLARA positive Diverticulitis Allergic bronchitis (HFpEF) heart failure with preserved ejection fraction Subarachnoid bleed Insomnia Anti-phospholipid antibody syndrome Hypogammaglobulinemia Chronic respiratory failure Arterial insufficiency of lower extremity Complex regional pain syndrome i of right lower limb Post herpetic neuralgia Pulmonary hypertension Pericardial effusion Pulmonary emboli Pleural effusion Radiation fibrosis of lung Pneumonitis Pulmonary nodules KANDY treated with BiPAP Lung cancer Family History Sister No problems noted. Mother Cardiovascular disease Daughter Tachycardia Other KANDY (obstructive sleep apnea) Surgical History History of colonoscopy History of lung surgery History of tonsillectomy History of hysterectomy S/P mitral valve clip implantation History of cardiac cath Social History Household Members: None Housing: House Do you presently have visiting nurse or other home services: Yes Unable to assess alcohol history related to: Unknown Alcohol intake: former Comment: stand by assist with ambulation Patient Tobacco Use Status: Never used Tobacco Smoked in Last 30 Days: No Second Hand Smoke Exposure: No Use of substances other than those prescribed or required for medical reasons: No Advance Directives: Yes Advance Directives on File: Yes Advance Directives Date on File: 06/15/22 Nutrition Risks: Surgical patient >75years service: No Current occupational status: retired Meds Allergies Allergy/AdvReac Type Severity Reaction Status Date / Time avocado [AVOCADO] Allergy Mild ITCHY Verified 01/04/24 18:53 THROAT, RASH azithromycin [AZITHROMYCIN] Allergy Mild ITCHY Verified 01/04/24 18:53 THROAT, RASH barium iodide [BARIUM IODIDE] Allergy Mild ITCHY Verified 01/04/24 18:53 THROAT, RASH barium sulfate Allergy Mild Itch Verified 01/04/24 18:53 bee pollen [BEE STINGS] Allergy Mild ITCHY Verified 01/04/24 18:53 THROAT, RASH ciprofloxacin [From CIPRO] Allergy Mild ITCHY Verified 01/04/24 18:53 THROAT, RASH clarithromycin [From BIAXIN] Allergy Mild ITCHY Verified 01/04/24 18:53 THROAT, RASH diatrizoate meglumine Allergy Mild ITCHY Verified 01/04/24 18:53 [From GASTROGRAFIN] THROAT, RASH diatrizoate sodium Allergy Mild ITCHY Verified 01/04/24 18:53 [From GASTROGRAFIN] THROAT, RASH diclofenac [From VOLTAREN] Allergy Mild ITCHY Verified 01/04/24 18:53 THROAT, RASH erythromycin base Allergy Mild ITCHY Verified 01/04/24 18:53 [ERYTHROMYCIN BASE] THROAT, RASH gentamicin [GENTAMICIN] Allergy Mild ITCHY Verified 01/04/24 18:53 THROAT, RASH Iodinated Contrast Media Allergy Mild ITCHY Verified 01/04/24 18:53 [IVP DYE] THROAT, RASH levofloxacin [From LEVAQUIN] Allergy Mild ITCHY Verified 01/04/24 18:53 THROAT, RASH metronidazole [From FLAGYL] Allergy Mild ITCHY Verified 01/04/24 18:53 THROAT, RASH moxifloxacin [From AVELOX] Allergy Mild ITCHY Verified 01/04/24 18:53 THROAT, RASH Penicillins [PENICILLINS] Allergy Mild ITCHY Verified 01/04/24 18:53 THROAT, RASH shrimp [SHRIMP] Allergy Mild ITCHY Verified 01/04/24 18:53 THROAT, RASH Sulfa (Sulfonamide Allergy Mild ITCHY Verified 01/04/24 18:53 Antibiotics) THROAT, [SULFA (SULFONAMIDE RASH ANTIBIOTICS)] vancomycin [VANCOMYCIN] Allergy Mild ITCHY Verified 01/04/24 18:53 THROAT, RASH clindamycin AdvReac Intermediate Unknown Verified 01/04/24 18:53 Active Medications: Current Medications Acetaminophen (Acetaminophen 325 Mg Tablet) 650 mg PO Q6H PRN PRN Reason: Pain, Mild (Pain Scale 1-3), fever or headache Calcium Carbonate (Calcium Carbonate 750 Mg Tab.Chew) 750 mg PO Q4H PRN PRN Reason: Heartburn Melatonin (Melatonin 3 Mg Tablet) 6 mg PO BEDTIME PRN PRN Reason: Insomnia Ondansetron HCl (Ondansetron Hcl 4 Mg/2 Ml Vial) 4 mg IVPUSH Q8H PRN PRN Reason: Nausea and Vomiting Oxycodone HCl (Oxycodone Hcl Immed Release 5 Mg Tablet) 5 mg PO Q6H PRN PRN Reason: Pain, Moderate(Pain Scale 4-6) Polyethylene Glycol (Polyethylene Glycol 3350 17 Gm Powd.Pack) 17 gm PO DAILY PRN PRN Reason: Constipation Sodium Chloride (0.9 % Sodium Chloride Flush 3 Ml Syringe) [facility]ations ?Medication ?Instructions ?Recorded ?Confirmed ?Last Taken ?Type levothyroxine 25 mcg tablet 25 mcg PO MOTUWETHFR@0600 06/14/22 11/20/23 06/13/22 History (Synthroid) CPAP (CPAP Machine/Device) 06/30/22 11/20/23 Unknown History Oxygen Home Use 06/30/22 11/20/23 Unknown History nebulizers 06/30/22 11/20/23 Unknown History warfarin 1 mg tablet (Jantoven) mg PO 06/30/22 11/20/23 Unknown History epinephrine 0.3 mg/0.3 mL IM 07/14/22 11/20/23 Unknown History injection, auto-injector diazepam 5 mg tablet 5 mg PO BID Anxiety and Sleep 11/21/22 11/20/23 Unknown History triamcinolone acetonide 0.1 % 1 appl topical BID-TID 05/29/23 11/20/23 Unknown History topical cream prednisone 2.5 mg tablet 2.5 mg PO Q OTHER DAY 08/09/23 11/20/23 Unknown History triamcinolone acetonide 0.1 % topical 08/25/23 11/20/23 Unknown History topical ointment furosemide 40 mg tablet 80 mg PO BID 11/28/23 Unknown History Physical Exam Vital Signs and Narrative: Vital Signs: Last Vital Signs Temp 98.7 F 01/04/24 20:24 Pulse 82 01/04/24 20:24 Resp 16 06/27/24 20:24 BP 147/76 H 01/04/24 20:24 Pulse Ox 99 01/04/24 20:24 O2 Del Method Room Air 01/04/24 20:24 Oxygen Flow Rate 2 01/04/24 18:51 BMI result Body Mass Index 24.3 General: AOx3, no acute distress Resp: CTA bilaterally CVS: S1, S2, RRR GI: +BS, NT, no distention Skin: Warm, dry Neuro: Cranial nerves II-XII grossly intact bilaterally. Motor grossly intact bilaterally Extremities: Significant swelling and ecchymosis on right lower leg especially on lateral aspect. As pictured below. Sensation to light touch intact on lower extremities bilaterally. Pedal pulses intact. Patient able to dorsiflex and plantar flex right foot and wiggle toes. Psych: Anxious Results Labs 01/04/24 19:50 01/04/24 19:50 Labs: Laboratory Results - last 24 hr 01/04/24 19:50 MCV 99.1 H MCH 33.3 H MCHC 33.6 RDW 13.5 Plt Count 201 MPV 11.0 Immature Gran % (Auto) 0.8 H Neut % (Auto) 79.5 H Lymph % (Auto) 9.6 L Hamlin % (Auto) 8.6 Eos % (Auto) 0.8 Baso % (Auto) 0.7 Lymph # (Auto) 1.1 L Hamlin # (Auto) 1.0 Eos # (Auto) 0.1 Baso # (Auto) 0.1 Abs Immat Gran (auto) 0.09 H Absolute Neuts (auto) 8.9 H Absolute Nucleated RBC 0.000 Nucleated RBC % (auto) 0.0 PT 22.0 H INR 1.8 H Anion Gap 13 Estim Creat Clear Calc 45.8 Estimated GFR > 60 Random Glucose 147 H Calcium 10.4 H Total Bilirubin 0.5 Direct Bilirubin 0.2 AST 30 ALT 25 Alkaline Phosphatase 64 Total Protein 6.6 Albumin 3.6 Blood Type A Positive Antibody Screen NEGATIVE Assessment and Plan (1) Hematoma of right lower leg: Status: Acute Plan Pt is an 78-year-old female with a complex PMH significant for CAD s/p NSTEMI, HFpEF, hx of subarachnoid hemorrhage, COPD, pulmonary hypertension, chronic hypercarbic respiratory failure on 2L supplemental home O2 prn, KANDY on BiPAP at night, hx of non-small cell lung cancer s/p chemo, radiation, and left upper lobe lobectomy, antiphospholipid antibody syndrome, hx of DVT/PE on Coumadin, and anxiety who presents to the ED for evaluation of right lower extremity pain, bruising, and swelling. Pt will be admitted to the hospital for treatment and further evaluation of large right lower leg hematoma. 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 Valentin DVT Prophylaxis: Pneumatic compression therapy on left leg d/t hematoma on right leg Given the severity of the pt's condition and risk for bleeding, pt will require a hospitalization of at least two nights for treatment of?right lower extremity hematoma with initial conservative treatment and specialist consultation for possible surgical intervention. Quality Stroke Does the patient have a stroke diagnosis?: No VTE Prior VTE?: No VTE Risk Level:: Medical - moderate - high VTE Device Contraindication: N/A - Device Ordered VTE Drug Contraindication: Treatment Not Indicated
[2024-01-05] VITALS (7 sets, daily range): BP systolic 115–150; BP diastolic 55–67; PULSE 68–85; RESP 16–18; TEMP 35.8–36.9; O2SAT 97–100; BMI 24.7
[2024-01-05] MEDS: diazePAM 2 MG TABLET PO ×2 (00:17→05:46)
[2024-01-05] MEDS: Albuterol/Iprat 2.5/0.5MG 3 ML AMPUL.NEB INHALE (00:39)
--- NOTE | 2024-01-05 02:23 | PC.RT ---
Pt refused Bipap
[2024-01-05] MEDS: Acetaminophen 325 MG TABLET 650 MG PO (02:25)
[2024-01-05] MEDS: 0.9 % Sodium Chloride Flush 3 ML SYRINGE IVFLUSH ×4 (02:29→21:52)
--- NOTE | 2024-01-05 04:00 | PC.NURSE ---
palpable pulses to right foot - patient didn't want RN to touch foot
[2024-01-05] MEDS: guaiFENesin 200 MG/10 ML 10 ML LIQUID PO (04:34)
--- NOTE | 2024-01-05 04:48 | PC.NURSE ---
pt admitted to unit via stretcher from the ED. Patient pleasant but particular upon arrival. 2L n/c. patient transferred to inpatient bed without difficulty. admission assessment completed - see admission assessment. pt c/o of pain to RLE but refused oxycodone, states, I don't take medications, look at my allergy list. refused tylenol stated she cannot swallow them that they are too large. RT to room to set up BiPap for sleep as patient stated she cannot sleep without it, patient refused BiPap r/t mask discomfort. purewick in place, patient states she cannot walk but ambulated independently prior to incident. PT c/o barking cough, Robitussin ordered by Dr. Homero Darden. RN called into room, patient crying stating that they are scared and want a camera in the room so that someone is watching to make sure they are alive all the time. Patient requesting trazodone (home medication) MD aware at this time. Patient extremely anxious and inquiring about all the lights in the room and devices on the wall for the O2 and suction canister. Pt reassured that they are safe and placed call ma within reach. patient demonstrated that they know how to use the call ma. bed alarm on.
--- NOTE | 2024-01-05 05:37 | PC.NURSE ---
pt anxious, requesting camera in room so that someone can watch her to make sure she is okay at all times. VMT notified, unable to set up camera as there are no more screens available. RN will relay this in report to next shift.
[2024-01-05 06:33] LABS: Hematocrit 32.1 % (37.0-47.0); Mean Corpuscular HGB Conc 34.3 g/dl (31.0-35.0); Mean Corpuscular Volume 99.1 fL (80.0-98.0); Mean Platelet Volume 11.3 fL (9.4-12.3); Platelet Count 187 X10*3/uL (160-400); Red Blood Count 3.24 X10*6/uL (4.20-5.50); Red Cell Distribution Width 13.5 % (11.0-16.0); White Blood Count 11.2 X10*3/uL (4.8-10.8)
[2024-01-05] MEDS: oxyCODONE HCl Immed Release 5 MG TABLET PO ×4 (08:37→23:07)
[2024-01-05] MEDS: Morphine Sulfate 2 MG/ML CARTRIDGE IVPUSH (09:31)
--- NOTE | 2024-01-05 09:57 | PM.CNGS ---
History of Present Illness Consult details Consult date: 01/05/24 Reason for consult: other (hematoma) Narrative: Very pleasant presents for evaluation regarding right leg hematoma. She reports that she was in a grocery store where she was hit by shopping cart. Of note she has been anticoagulated for prior history of DVT and PE. At the time of presentation her INR was 1.8. She does report a prior episode of this nearly 5 years ago where she was treated at [facility]. In addition she has a history of antiphospholipid antibody syndrome. Review of Systems Review of Systems: Yes all other systems are reviewed and are negative Constitutional: Constitutional: Reports no additional constitutional complaints ENT: Reports Normal hearing present Cardiovascular: Cardiovascular: Denies chest pain, Denies chest pain at rest, Denies chest pain with activity and Denies pedal edema Respiratory: Respiratory: Denies cough Gastrointestinal: Gastrointestinal: Denies abdominal pain Musculoskeletal: Musculoskeletal: Denies abnormal gait, Denies muscle cramps and Denies radiating pain into limb Integumentary/Breasts: Skin/Breast: Denies skin ulcer and Denies wounds Neurologic: Reports Normal hearing present and Denies abnormal gait Psychiatric: Psychiatric: Reports no additional psychiatric complaints [facility] Past Medical History Medical History Complex sleep apnea syndrome Chronic hypercapnic respiratory failure Leg pain Anemia Tachycardia DVT (deep venous thrombosis) COPD (chronic obstructive pulmonary disease) Compression fracture of body of thoracic vertebra ASD (atrial septal defect) Pleuritic chest pain History of COVID-19 Chronic anticoagulation Hypothyroidism GERD (gastroesophageal reflux disease) Hyperlipidemia Hypertension Factor 5 Leiden mutation, heterozygous History of non-ST elevation myocardial infarction (NSTEMI) Hypoxia Anxiety PTSD (post-traumatic stress disorder) Hemoptysis Dyspnea Tracheobronchitis CLARA positive Diverticulitis Allergic bronchitis (HFpEF) heart failure with preserved ejection fraction Subarachnoid bleed Insomnia Anti-phospholipid antibody syndrome Hypogammaglobulinemia Chronic respiratory failure Arterial insufficiency of lower extremity Complex regional pain syndrome i of right lower limb Post herpetic neuralgia Pulmonary hypertension Pericardial effusion Pulmonary emboli Pleural effusion Radiation fibrosis of lung Pneumonitis Pulmonary nodules KANDY treated with BiPAP Lung cancer Family History Family History Sister No problems noted. Mother Cardiovascular disease Daughter Tachycardia Other KANDY (obstructive sleep apnea) Surgical History Surgical History History of colonoscopy History of lung surgery History of tonsillectomy History of hysterectomy S/P mitral valve clip implantation History of cardiac cath Social History Social History Household Members: None Housing: House Do you presently have visiting nurse or other home services: No Unable to assess alcohol history related to: Unknown Alcohol intake: former Comment: stand by assist with ambulation Patient Tobacco Use Status: Never used Tobacco Smoked in Last 30 Days: No Second Hand Smoke Exposure: No Use of substances other than those prescribed or required for medical reasons: No Currently Displaying Signs/Symptoms of Drug Intoxication Withdrawal: No Have you been hit, kicked, punched, or otherwise hurt by someone within the past year? If so, by whom?: No Do you feel safe in your current relationship?: No Current Relationship Is there a partner from a previous relationship who is making you feel unsafe now?: No Are you made to feel afraid or neglected: No Advance Directives: Yes Advance Directives on File: Yes Advance Directives Date on File: 06/15/22 Do you have a plan to hurt others: No Plan Recently lost weight without trying: No How much weight loss: Not applicable Eating poorly because of decreased appetite: No Nutrition screen score: 0 Nutrition Risks: Surgical patient >75years Patient : No : No Poor oral hygiene: No service: No Current occupational status: retired Meds Allergies Allergy/AdvReac Type Severity Reaction Status Date / Time avocado [AVOCADO] Allergy Mild ITCHY Verified 01/04/24 18:53 THROAT, RASH azithromycin [AZITHROMYCIN] Allergy Mild ITCHY Verified 01/04/24 18:53 THROAT, RASH barium iodide [BARIUM IODIDE] Allergy Mild ITCHY Verified 01/04/24 18:53 THROAT, RASH barium sulfate Allergy Mild Itch Verified 01/04/24 18:53 bee pollen [BEE STINGS] Allergy Mild ITCHY Verified 01/04/24 18:53 THROAT, RASH ciprofloxacin [From CIPRO] Allergy Mild ITCHY Verified 01/04/24 18:53 THROAT, RASH clarithromycin [From BIAXIN] Allergy Mild ITCHY Verified 01/04/24 18:53 THROAT, RASH diatrizoate meglumine Allergy Mild ITCHY Verified 01/04/24 18:53 [From GASTROGRAFIN] THROAT, RASH diatrizoate sodium Allergy Mild ITCHY Verified 01/04/24 18:53 [From GASTROGRAFIN] THROAT, RASH diclofenac [From VOLTAREN] Allergy Mild ITCHY Verified 01/04/24 18:53 THROAT, RASH erythromycin base Allergy Mild ITCHY Verified 01/04/24 18:53 [ERYTHROMYCIN BASE] THROAT, RASH gentamicin [GENTAMICIN] Allergy Mild ITCHY Verified 01/04/24 18:53 THROAT, RASH Iodinated Contrast Media Allergy Mild ITCHY Verified 01/04/24 18:53 [IVP DYE] THROAT, RASH levofloxacin [From LEVAQUIN] Allergy Mild ITCHY Verified 01/04/24 18:53 THROAT, RASH metronidazole [From FLAGYL] Allergy Mild ITCHY Verified 01/04/24 18:53 THROAT, RASH moxifloxacin [From AVELOX] Allergy Mild ITCHY Verified 01/04/24 18:53 THROAT, RASH Penicillins [PENICILLINS] Allergy Mild ITCHY Verified 01/04/24 18:53 THROAT, RASH shrimp [SHRIMP] Allergy Mild ITCHY Verified 01/04/24 18:53 THROAT, RASH Sulfa (Sulfonamide Allergy Mild ITCHY Verified 01/04/24 18:53 Antibiotics) THROAT, [SULFA (SULFONAMIDE RASH ANTIBIOTICS)] vancomycin [VANCOMYCIN] Allergy Mild ITCHY Verified 01/04/24 18:53 THROAT, RASH clindamycin AdvReac Intermediate Unknown Verified 01/04/24 18:53 Active Medications: Current Medications Acetaminophen (Acetaminophen 325 Mg Tablet) 650 mg PO Q6H PRN PRN Reason: Pain, Mild (Pain Scale 1-3), fever or headache Last Admin: 01/05/24 02:25 Dose: 650 mg Calcium Carbonate (Calcium Carbonate 750 Mg Tab.Chew) 750 mg PO Q4H PRN PRN Reason: Heartburn Guaifenesin (Guaifenesin 200 Mg/10 Ml 10 Ml Liquid) 10 ml PO Q4H PRN PRN Reason: Cough Last Admin: 01/05/24 04:34 Dose: 10 ml Melatonin (Melatonin 3 Mg Tablet) 6 mg PO BEDTIME PRN PRN Reason: Insomnia Ondansetron HCl (Ondansetron Hcl 4 Mg/2 Ml Vial) 4 mg IVPUSH Q8H PRN PRN Reason: Nausea and Vomiting Oxycodone HCl (Oxycodone Hcl Immed Release 5 Mg Tablet) 5 mg PO Q6H PRN PRN Reason: Pain, Moderate(Pain Scale 4-6) Last Admin: 01/05/24 08:37 Dose: 5 mg Polyethylene Glycol (Polyethylene Glycol 3350 17 Gm Powd.Pack) 17 gm PO DAILY PRN PRN Reason: Constipation Sodium Chloride (0.9 % Sodium Chloride Flush 3 Ml Syringe) 3 ml IVFLUSH QSHIFT MATHEW Last Admin: 01/05/24 08:03 Dose: 3 ml Home Medications ?Medication ?Instructions ?Recorded ?Confirmed ?Last Taken ?Type levothyroxine 25 mcg tablet 25 mcg PO MOTUWETHFR@0600 06/14/22 11/20/23 06/13/22 History (Synthroid) CPAP (CPAP Machine/Device) 06/30/22 11/20/23 Unknown History Oxygen Home Use 06/30/22 11/20/23 Unknown History nebulizers 06/30/22 11/20/23 Unknown History epinephrine 0.3 mg/0.3 mL IM 07/14/22 11/20/23 Unknown History injection, auto-injector triamcinolone acetonide 0.1 % 1 appl topical BID-TID 05/29/23 11/20/23 Unknown History topical cream prednisone 2.5 mg tablet 2.5 mg PO Q OTHER DAY 08/09/23 11/20/23 Unknown History brimonidine 0.2 % eye drops 1 drp BID 01/05/24 Unknown History diazepam 5 mg tablet 2.5 mg PO QID PRN anxiety 01/05/24 Unknown History furosemide 40 mg tablet 40 mg PO BID 01/05/24 Unknown History hydroquinone 4 % topical cream appl topical BEDTIME 01/05/24 Unknown History latanoprost 0.005 % eye drops 1 drp BEDTIME 01/05/24 Unknown History nystatin 100,000 unit/gram topical 1 appl topical TID 01/05/24 Unknown History powder warfarin 1 mg tablet (Jultoven) PO 01/05/24 Unknown History Physical Exam Vital Signs: Vital Signs: Last Vital Signs Temp 98.1 F 01/05/24 07:06 Pulse 68 01/05/24 07:06 Resp 18 01/05/24 07:06 BP 135/65 01/05/24 07:06 Pulse Ox 99 01/05/24 07:06 O2 Del Method Nasal Cannula 01/05/24 07:06 O2 Flow Rate 2 01/05/24 07:06 Oxygen Flow Rate 2 01/04/24 18:51 BMI result Body Mass Index 24.7 Const: General: cooperative, healthy appearing and comfortable Orientation/consciousness: oriented to person, oriented to place and oriented to time HEENT: Head: Yes normal to inspection Neck: Neck: Yes normal visual inspection Carotids: no bruits Chest: Chest palpation & inspection: normal inspection of the chest Resp: Effort & Inspection: normal respiratory effort and able to speak in complete sentences Auscultation: clear to auscultation bilaterally, no crackles, no rales, no rhonchi and no wheezes Cardio: Rate: regular rate Rhythm: regular rhythm Heart sounds: S1 normal heart sound present and S2 normal heart sound present Bruits: no carotid bruits Peripheral pulses: Peripheral pulses 2+ throughout GI: Inspection: Yes normal to inspection Skin: Other: Large right leg hematoma - lateral aspect opened. Nearly 20 cm opening had to be created. Xeroform and dressing was applied over the top of this. Wounds: no wounds Hair: normal Neuro: General: oriented to person, oriented to place and oriented to time Cranial nerves: Yes CN's II-XII intact bilaterally and Yes Normal hearing present Cognition (Neuro): normal cognition Motor exam (neuro): 5/5 motor strength present throughout Extrem: Other: Patient had motor and sensation intact of the foot. Had a nice triphasic signal. General: No clubbing, No cyanosis and No edema Psych: Appearance: grossly normal Mental Status: mental status grossly normal Speech and movement: Normal speech and movement present Results Labs 01/05/24 05:45 01/04/24 19:50 Labs: Abnormal lab results 01/04/24 01/05/24 Range/Units 19:50 05:45 WBC 11.2 H 11.2 H (4.8-10.8) X10*3/uL RBC 3.45 L 3.24 L (4.20-5.50) X10*6/uL Hgb 11.5 L 11.0 L (12.0-16.0) g/dl Hct 34.2 L 32.1 L (37.0-47.0) % MCV 99.1 H 99.1 H (80.0-98.0) fL MCH 33.3 H 34.0 H (27.0-33.0) pg Immature Gran % (Auto) 0.8 H (0.0-0.4) % Neut % (Auto) 79.5 H (45-73) % Lymph % (Auto) 9.6 L (20-40) % Lymph # (Auto) 1.1 L (1.2-4.9) X10*3/uL Abs Immat Gran (auto) 0.09 H (0.00-0.03) X10*3/uL Absolute Neuts (auto) 8.9 H (2.0-8.3) x10*3/uL PT 22.0 H (11.1-13.3) SEC INR 1.8 H (0.9-1.1) BUN 33 H (9-16) mg/dL Random Glucose 147 H (60-115) mg/dL Calcium 10.4 H (8.4-10.2) mg/dL Short CBC 01/04/24 01/05/24 Range/Units 19:50 05:45 WBC 11.2 H 11.2 H (4.8-10.8) X10*3/uL Hgb 11.5 L 11.0 L (12.0-16.0) g/dl Hct 34.2 L 32.1 L (37.0-47.0) % Plt Count 201 187 (160-400) X10*3/uL BMP 01/04/24 19:50 Sodium 138 Potassium 3.8 Chloride 100 Carbon Dioxide 29 BUN 33 H Creatinine 0.81 Calcium 10.4 H Liver Function 01/04/24 Range/Units 19:50 Total Bilirubin 0.5 (0.0-1.0) mg/dL Direct Bilirubin 0.2 (0.0-0.5) mg/dL AST 30 (5-31) U/L ALT 25 (0-31) U/L Alkaline Phosphatase 64 (39-117) U/L Albumin 3.6 (3.5-5.0) g/dL All other labs normal. Assessment and Plan (1) Hematoma of right lower leg: Status: Acute Plan In short patient has large right leg hematoma. At the current time leg is viable and non threatened. There is no evidence of compartment syndrome either. Motor and sensation of the leg is intact. It is a superficial hematoma which will slowly need to be evacuated. Pressure was released. Will continue with local dressings. Will hold Coumadin for now and does not need to be reversed. We will continue to monitor this patient with you. Thank you for allowing us to assist in her care. If there are any questions or concerns please do not hesitate to contact us. Procedures Date of Service Date of Service: 01/05/24
--- NOTE | 2024-01-05 11:12 | MHC.CM.PN ---
Addendum entered by Akosua Pastor 01/05/24 11:17: Pt reports she castañeda not want to return to [facility] Original Note: This telegraphic typewriter repairer met w/ patient re: CM assessment. Patient A&O x3, able to answer questions appropriately. Reports living at home alone. Some family support. [employer] services. Oxygen & Bipap via [facility]. HCP copy @ home. IMM 01/04. DCP pending further eval. May need PT Eval to determine best next site of care. Pt open to AIR/STR/Home. Preference to [facility] or [facility]. This telegraphic typewriter repairer did set expectation w/ pt that [facility] can be difficult to receive bed offer- she understood. CM will continue to follow for d/c planning needs.
--- NOTE | 2024-01-05 11:42 | PHA.MEDREC ---
Pharmacy Consult ? Medication Reconciliation Pharmacy has completed the medication reconciliation. Spoke to patient to confirm med list. Patient states she is no longer taking Brimonidine 1 drp in left eye bid, Latanoprost 1 drp in left eye at bedtime, Hydroquinione cream at bedtime, and Triamcinolone Acctonide 0.1% bid-tid. Patient sates Furosamide is 80 mg daily and 40 mg daily at noon. Synthroid she takes 25 mg on days Mon-Mon and 50 mg on , Prednisone 2.5 is every other day, and Rosuvastatin she takes 10 mg 3x a week Mon, Mon, and Mon. Patient says she takes Warfarin 2.5 mg daily depending on her lab work, however she did took 3 mg on monday.
--- NOTE | 2024-01-05 12:45 | P.PNIM_ITS ---
Subjective Subjective Date of Service: 01/05/24 Interval History: seen and evaluated this morning anxious about her hematoma and bleeding had bedside intervention to evacuate the hematoma by dr Ratliff no other events now Review of Systems Review of Systems: Yes all other systems are reviewed and are negative Physical Exam 2 Vital Signs: Vital Signs: Last Vital Signs Temp 98.1 F 01/05/24 07:06 Pulse 68 01/05/24 07:06 Resp 18 01/05/24 07:06 BP 135/65 01/05/24 07:06 Pulse Ox 99 01/05/24 07:06 O2 Del Method Nasal Cannula 01/05/24 07:06 O2 Flow Rate 2 01/05/24 07:06 Oxygen Flow Rate 2 01/04/24 18:51 BMI result Body Mass Index 24.7 Const: Other: Constitutional : Awake, interactive, anxious Neck : Normal inspection, Supple Cardiovascular : RRR, no JVP, no lower extremity edema Respiratory : good bilateral air entry, no crackles, wheezes or rhonchi Gastrointestinal: soft, lax, Normal bowel sounds, Non tender Skin : Warm, Dry, multiple bruises mainly lower extremities Neurological : Alert & oriented x3, No focal deficit Objective Data Active Medications Acetaminophen (Acetaminophen 325 Mg Tablet) 650 mg PO Q6H PRN PRN Reason: Pain, Mild (Pain Scale 1-3), fever or headache Last Admin: 01/05/24 02:25 Dose: 650 mg Documented By: CONNIE Calcium Carbonate (Calcium Carbonate 750 Mg Tab.Chew) 750 mg PO Q4H PRN PRN Reason: Heartburn Clonazepam (Clonazepam 0.125 Mg Tab.Rapdis) 0.25 mg PO Q8H PRN PRN Reason: anxiety/restlessness Guaifenesin (Guaifenesin 200 Mg/10 Ml 10 Ml Liquid) 10 ml PO Q4H PRN PRN Reason: Cough Last Admin: 01/05/24 04:34 Dose: 10 ml Documented By: CONNIE Melatonin (Melatonin 3 Mg Tablet) 6 mg PO BEDTIME PRN PRN Reason: Insomnia Morphine Sulfate (Morphine Sulfate 2 Mg/Ml Cartridge) 2 mg IVPUSH Q4H PRN; Protocol PRN Reason: Pain, Severe (Pain Scale 7-10) Ondansetron HCl (Ondansetron Hcl 4 Mg/2 Ml Vial) 4 mg IVPUSH Q8H PRN PRN Reason: Nausea and Vomiting Oxycodone HCl (Oxycodone Hcl Immed Release 5 Mg Tablet) 5 mg PO Q6H PRN PRN Reason: Pain, Moderate(Pain Scale 4-6) Last Admin: 01/05/24 08:37 Dose: 5 mg Documented By: CHATA Polyethylene Glycol (Polyethylene Glycol 3350 17 Gm Powd.Pack) 17 gm PO DAILY PRN PRN Reason: Constipation Sodium Chloride (0.9 % Sodium Chloride Flush 3 Ml Syringe) 3 ml IVFLUSH QSHIFT [facility] Last Admin: 01/05/24 08:03 Dose: 3 ml Documented By: CHATA Labs 01/05/24 05:45 01/04/24 19:50 Labs: Laboratory Results - last 24 hr 01/04/24 01/05/24 19:50 05:45 MCV 99.1 H 99.1 H MCH 33.3 H 34.0 H MCHC 33.6 34.3 RDW 13.5 13.5 Plt Count 201 187 MPV 11.0 11.3 Immature Gran % (Auto) 0.8 H Neut % (Auto) 79.5 H Lymph % (Auto) 9.6 L [place] % (Auto) 8.6 Eos % (Auto) 0.8 Baso % (Auto) 0.7 Lymph # (Auto) 1.1 L [place] # (Auto) 1.0 Eos # (Auto) 0.1 Baso # (Auto) 0.1 Abs Immat Gran (auto) 0.09 H Absolute Neuts (auto) 8.9 H Absolute Nucleated RBC 0.000 0.000 Nucleated RBC % (auto) 0.0 0.0 PT 22.0 H INR 1.8 H Anion Gap 13 Estim Creat Clear Calc 45.8 Estimated GFR > 60 Random Glucose 147 H Calcium 10.4 H Total Bilirubin 0.5 Direct Bilirubin 0.2 AST 30 ALT 25 Alkaline Phosphatase 64 Total Protein 6.6 Albumin 3.6 Blood Type A Positive Antibody Screen NEGATIVE Assessment and Plan (1) Warfarin anticoagulation: Status: Acute Plan Pt is an 78-year-old female with a complex PMH significant for CAD s/p NSTEMI, HFpEF, hx of subarachnoid hemorrhage, COPD, pulmonary hypertension, chronic hypercarbic respiratory failure on 2L supplemental home O2 prn, KANDY on BiPAP at night, hx of non-small cell lung cancer s/p chemo, radiation, and left upper lobe lobectomy, antiphospholipid antibody syndrome, hx of DVT/PE on Coumadin, and anxiety who presents to the ED for evaluation of right lower extremity pain, bruising, and swelling. Pt will be admitted to the hospital for treatment and further evaluation of large right lower leg hematoma. Right lower leg hematoma evacuated by dr Ratliff local care, pressure for compression Hold Coumadin Vascular surgery following Follow H&H Hx of DVT/PE Hold Coumadin Goal of INR 1.4-2.0 per her car wiper at [facility] d/t antiphospholipid syndrome To restart when tolerated COPD Not in acute exacerbation Continue home inhalers, supplemental O2 prn HFpEF Not in acute exacerbation Continue home diuretics, metoprolol CAD Continue metoprolol, statin KANDY BiPAP at night Hypothyroidism Levothyroxine Anxiety Continue Valium Full Code DVT Prophylaxis: Pneumatic compression therapy on left leg d/t hematoma on right leg Given the severity of the pt's condition and risk for bleeding, pt will require a hospitalization of overnight for treatment of?right lower extremity hematoma pending post intervention follow up and monitoring blood levels Quality Stroke Does the patient have a stroke diagnosis?: No VTE Prior VTE?: No VTE Risk Level:: Medical - moderate - high VTE Device Contraindication: N/A - Device Ordered VTE Drug Contraindication: Treatment Not Indicated
[2024-01-05] MEDS: Nystatin Powder 15 GM BOTTLE 1 APPL TOPICAL ×2 (17:38→21:28)
[2024-01-05] MEDS: Doxycycline Monohydrate 100 MG CAPSULE PO (19:37)
[2024-01-05] MEDS: traZODone HCL 100 MG TABLET PO (21:16)
[2024-01-05] MEDS: Metoprolol Succinate ER 50 MG TAB.ER.24H PO (21:16)
[2024-01-05] MEDS: Chlorhexidine Gluc Oral Rinse 15 ML MOUTHWASH BUCCAL (21:17)
[2024-01-06] VITALS (10 sets, daily range): BP systolic 96–132; BP diastolic 53–71; PULSE 72–79; RESP 14–18; TEMP 36.6–37.1; O2SAT 98–100
[2024-01-06 06:27] LABS: Hematocrit 31.6 % (37.0-47.0); Hemoglobin 10.2 g/dl (12.0-16.0); Mean Corpuscular HGB Conc 32.3 g/dl (31.0-35.0); Mean Corpuscular Hemoglobin 32.8 pg (27.0-33.0); Mean Corpuscular Volume 101.6 fL (80.0-98.0); Mean Platelet Volume 11.3 fL (9.4-12.3); Platelet Count 193 X10*3/uL (160-400); Red Blood Count 3.11 X10*6/uL (4.20-5.50); Red Cell Distribution Width 13.8 % (11.0-16.0); White Blood Count 9.8 X10*3/uL (4.8-10.8)
[2024-01-06] MEDS: Levothyroxine Sodium 50 MCG TABLET PO (06:39)
[2024-01-06] MEDS: Doxycycline Monohydrate 100 MG CAPSULE PO ×2 (06:39→19:49)
[2024-01-06 06:40] LABS: Anion Gap 12 (12-20); Blood Urea Nitrogen 21 mg/dL (9-16); Calcium 10.1 mg/dL (8.4-10.2); Carbon Dioxide 30 mmol/L (22-29); Chloride 101 mmol/L (96-108); Creatinine Clr Calc Pharmacy 51.4; Estimated Glomerular Filt Rate > 60; Glucose Random 113 mg/dL (60-115); Sodium 139 mmol/L (135-145)
[2024-01-06] MEDS: oxyCODONE HCl Immed Release 5 MG TABLET PO ×2 (06:42→20:05)
[2024-01-06] MEDS: Furosemide 40 MG TABLET 80 MG PO (08:25)
[2024-01-06] MEDS: Metoprolol Succinate ER 50 MG TAB.ER.24H PO ×2 (08:25→21:02)
[2024-01-06] MEDS: Chlorhexidine Gluc Oral Rinse 15 ML MOUTHWASH BUCCAL ×2 (08:26→21:01)
[2024-01-06] MEDS: Nystatin Powder 15 GM BOTTLE 1 APPL TOPICAL ×2 (08:26→21:01)
[2024-01-06] MEDS: Potassium Chloride Packet 20 MEQ PACKET PO (08:26)
[2024-01-06] MEDS: 0.9 % Sodium Chloride Flush 3 ML SYRINGE IVFLUSH ×3 (08:26→21:08)
--- NOTE | 2024-01-06 11:47 | P.PNIM_ITS ---
Subjective Subjective Date of Service: 01/06/24 Interval History: seen and evaluated this morning less anxious this morning Hematoma evacuated by dr Ratliff no other events now Review of Systems Review of Systems: Yes all other systems are reviewed and are negative Physical Exam 2 Vital Signs: Vital Signs: Last Vital Signs Temp 97.9 F 01/06/24 07:20 Pulse 75 01/06/24 08:25 Resp 14 01/06/24 07:20 BP 109/71 01/06/24 09:51 Pulse Ox 99 01/06/24 07:20 O2 Del Method Room Air 01/06/24 07:20 O2 Flow Rate 1 01/05/24 19:27 Oxygen Flow Rate 2 01/04/24 18:51 BMI result Body Mass Index 24.7 Const: Other: Constitutional : Awake, interactive, anxious Neck : Normal inspection, Supple Cardiovascular : RRR, no JVP, no lower extremity edema Respiratory : good bilateral air entry, no crackles, wheezes or rhonchi Gastrointestinal: soft, lax, Normal bowel sounds, Non tender Skin : Warm, Dry, multiple bruises mainly lower extremities , hematoma evacuated and area covered with dressing. Neurological : Alert & oriented x3, No focal deficit Objective Data Active Medications Acetaminophen (Acetaminophen 325 Mg Tablet) 650 mg PO Q6H PRN PRN Reason: Pain, Mild (Pain Scale 1-3), fever or headache Last Admin: 01/05/24 02:25 Dose: 650 mg Documented By: CONNIE Albuterol Sulfate (Albuterol Sulfate (0.083%) 2.5 Mg/3 Ml Vial.Neb) 2.5 mg INHALE Q6H PRN PRN Reason: shortness of breath or wheezing Atorvastatin Calcium (Atorvastatin Calcium 40 Mg Tablet) 40 mg PO MOWEFR [facility] Last Admin: 01/05/24 13:59 Dose: Not Given Documented By: CHATA Non-Admin Reason: Patient Refused Benzonatate (Benzonatate 100 Mg Capsule) 100 mg PO TID PRN PRN Reason: Cough Calcium Carbonate (Calcium Carbonate 750 Mg Tab.Chew) 750 mg PO Q4H PRN PRN Reason: Heartburn Chlorhexidine Gluconate (Chlorhexidine Gluc Oral Rinse 15 Ml Mouthwash) 15 ml BUCCAL BID [facility] Last Admin: 01/06/24 08:26 Dose: 15 ml Documented By: HO.COTEMA Diazepam (Diazepam 5 Mg Tablet) 5 mg PO QID PRN PRN Reason: anxiety Doxycycline Monohydrate (Doxycycline Monohydrate 100 Mg Capsule) 100 mg PO Q12H [facility] Last Admin: 01/06/24 06:39 Dose: 100 mg Documented By: MARY ALICE Epinephrine (Epinephrine 1 Mg/Ml Vial) 0.3 mg IM ONCE PRN PRN Reason: Anaphylaxis Fluticasone/Vilanterol (Fluticasone/Vilanterol 200/25 Blst.W.Dev) 1 puff INHALE RDAILY [facility] Last Admin: 01/06/24 08:50 Dose: Not Given Documented By: ISABEL Non-Admin Reason: Patient Refused Furosemide (Furosemide 40 Mg Tablet) 40 mg PO DAILY@1200 [facility]; Protocol Last Admin: 01/05/24 13:33 Dose: Not Given Documented By: CHATA Non-Admin Reason: Patient Refused Furosemide (Furosemide 40 Mg Tablet) 80 mg PO DAILY [facility]; Protocol Last Admin: 01/06/24 08:25 Dose: 80 mg Documented By: ISABEL Guaifenesin (Guaifenesin 200 Mg/10 Ml 10 Ml Liquid) 10 ml PO Q4H PRN PRN Reason: Cough Last Admin: 01/05/24 04:34 Dose: 10 ml Documented By: CONNIE Guaifenesin (Guaifenesin La 600 Mg Tab.Er.12h) 600 mg PO BID [facility] Levothyroxine Sodium (Levothyroxine Sodium 50 Mcg Tablet) 50 mcg PO SuSa@0600 [facility] Last Admin: 01/06/24 06:39 Dose: 50 mcg Documented By: MARY ALICE Levothyroxine Sodium (Levothyroxine Sodium 25 Mcg Tablet) 25 mcg PO MOTUWETHFR@0600 [facility] Meclizine HCl (Meclizine Hcl 25 Mg Tablet) 25 mg PO TID PRN PRN Reason: dizziness Melatonin (Melatonin 3 Mg Tablet) 6 mg PO BEDTIME PRN PRN Reason: Insomnia Metoprolol Succinate (Metoprolol Succinate Er 50 Mg Tab.Er.24h) 50 mg PO BID [facility]; Protocol Last Admin: 01/06/24 08:25 Dose: 50 mg Documented By: ISABEL Montelukast Sodium (Montelukast Sodium 10 Mg Tablet) 10 mg PO DAILY [facility] Last Admin: 01/06/24 08:26 Dose: Not Given Documented By: ISABEL Non-Admin Reason: Patient Refused Nystatin (Nystatin Powder 15 Gm Bottle) 1 appl TOPICAL TID [facility]; Protocol Last Admin: 01/06/24 08:26 Dose: 1 appl Documented By: ISABEL Ondansetron HCl (Ondansetron Hcl 4 Mg/2 Ml Vial) 4 mg IVPUSH Q8H PRN PRN Reason: Nausea and Vomiting Oxycodone HCl (Oxycodone Hcl Immed Release 5 Mg Tablet) 5 mg PO Q3H PRN PRN Reason: Pain, Moderate(Pain Scale 4-6) Last Admin: 01/06/24 06:42 Dose: 5 mg Documented By: MARY ALICE Polyethylene Glycol (Polyethylene Glycol 3350 17 Gm Powd.Pack) 17 gm PO DAILY PRN PRN Reason: Constipation Potassium Chloride (Potassium Chloride Packet 20 Meq Packet) 20 meq PO DAILY [facility] Last Admin: 01/06/24 08:26 Dose: 20 meq Documented By: JASSEMA Prednisone (Prednisone 2.5 Mg Tablet) 2.5 mg PO Q48H [facility] Sodium Chloride (0.9 % Sodium Chloride Flush 3 Ml Syringe) 3 ml IVFLUSH QSHIFT [facility] Last Admin: 01/06/24 08:26 Dose: 3 ml Documented By: JASSEMA Trazodone HCl (Trazodone Hcl 100 Mg Tablet) 100 mg PO BEDTIME [facility] Last Admin: 01/05/24 21:16 Dose: 100 mg Documented By: MARY ALICE Labs 01/06/24 05:52 01/06/24 05:52 Labs: Laboratory Results - last 24 hr 01/06/24 05:52 MCV 101.6 H MCH 32.8 MCHC 32.3 RDW 13.8 Plt Count 193 MPV 11.3 Absolute Nucleated RBC 0.000 Nucleated RBC % (auto) 0.0 Hold Blue Top SEE NOTE Anion Gap 12 Estim Creat Clear Calc 51.4 Estimated GFR > 60 Random Glucose 113 Calcium 10.1 Assessment and Plan (1) Warfarin anticoagulation: Status: Acute (2) Hematoma of right lower leg: Status: Acute (3) Complex sleep apnea syndrome: Status: Acute Plan Pt is an 78-year-old female with a complex PMH significant for CAD s/p NSTEMI, HFpEF, hx of subarachnoid hemorrhage, COPD, pulmonary hypertension, chronic hypercarbic respiratory failure on 2L supplemental home O2 prn, KANDY on BiPAP at night, hx of non-small cell lung cancer s/p chemo, radiation, and left upper lobe lobectomy, antiphospholipid antibody syndrome, hx of DVT/PE on Coumadin, and anxiety who presents to the ED for evaluation of right lower extremity pain, bruising, and swelling. Pt will be admitted to the hospital for treatment and further evaluation of large right lower leg hematoma. Right lower leg hematoma local care, pressure for compression Hold Coumadin Vascular surgery did evacuate the hematoma but might still need to re-do it next week Follow H&H Hx of DVT/PE Hold Coumadin Goal of INR 1.4-2.0 per her licensed surveyor at [facility] d/t antiphospholipid syndrome To restart when ok by Vascular Cough CXR negative for any acute findings Mucinex COPD Not in acute exacerbation Continue home inhalers, supplemental O2 prn HFpEF Not in acute exacerbation Continue home diuretics, metoprolol CAD Continue metoprolol, statin KANDY BiPAP at night Hypothyroidism Levothyroxine Anxiety Continue Valium Full Code DVT Prophylaxis: Lovenox SC Given the severity of the pt's condition and risk for bleeding, pt will require a hospitalization of overnight for treatment of?right lower extremity hematoma pending post intervention follow up Quality Stroke Does the patient have a stroke diagnosis?: No VTE Prior VTE?: No VTE Risk Level:: Medical - moderate - high VTE Device Contraindication: N/A - Device Ordered VTE Drug Contraindication: Treatment Not Indicated
[2024-01-06] MEDS: predniSONE 2.5 MG TABLET PO (12:06)
[2024-01-06] MEDS: guaiFENesin 200 MG/10 ML 10 ML LIQUID PO (12:18)
[2024-01-06] MEDS: Furosemide 40 MG TABLET PO (13:14)
[2024-01-06] MEDS: Enoxaparin Sodium 40 MG/0.4 ML SYRINGE SUBCUT (13:16)
[2024-01-06] MEDS: Calcium Carbonate 750 MG TAB.CHEW PO ×2 (13:32→22:28)
--- NOTE | 2024-01-06 18:30 | PC.NURSE ---
Pt. requesting to change her diet from low sodiuam, stated she haven't eat because she doesn't like. MD notified and will look into it.
[2024-01-06] MEDS: guaiFENesin LA 600 MG TAB.ER.12H PO (21:01)
[2024-01-06] MEDS: traZODone HCL 100 MG TABLET PO (21:01)
[2024-01-07] VITALS (8 sets, daily range): BP systolic 94–128; BP diastolic 54–60; PULSE 68–88; RESP 14–18; TEMP 36–36.4; O2SAT 94–98
[2024-01-07] MEDS: diazePAM 5 MG TABLET PO (01:29)
[2024-01-07] MEDS: Levothyroxine Sodium 50 MCG TABLET PO (06:32)
[2024-01-07] MEDS: Doxycycline Monohydrate 100 MG CAPSULE PO ×2 (06:33→18:28)
[2024-01-07 06:52] LABS: Hematocrit 27.3 % (37.0-47.0); Hemoglobin 9.1 g/dl (12.0-16.0); Mean Corpuscular HGB Conc 33.3 g/dl (31.0-35.0); Mean Corpuscular Hemoglobin 33.5 pg (27.0-33.0); Mean Corpuscular Volume 100.4 fL (80.0-98.0); Mean Platelet Volume 11.8 fL (9.4-12.3); Platelet Count 179 X10*3/uL (160-400); Red Blood Count 2.72 X10*6/uL (4.20-5.50); Red Cell Distribution Width 13.5 % (11.0-16.0); White Blood Count 9.5 X10*3/uL (4.8-10.8)
[2024-01-07 06:54] LABS: INTERNATIONAL NORM RATIO 1.4 (0.9-1.1)
[2024-01-07] MEDS: Chlorhexidine Gluc Oral Rinse 15 ML MOUTHWASH BUCCAL ×2 (08:15→20:30)
[2024-01-07] MEDS: Montelukast Sodium 10 MG TABLET PO (08:15)
[2024-01-07] MEDS: Potassium Chloride Packet 20 MEQ PACKET PO (08:17)
[2024-01-07] MEDS: 0.9 % Sodium Chloride Flush 3 ML SYRINGE IVFLUSH ×3 (08:18→21:57)
[2024-01-07] MEDS: Nystatin Powder 15 GM BOTTLE 1 APPL TOPICAL ×2 (08:20→20:32)
[2024-01-07] MEDS: Ferrous Sulfate 324 MG TABLET.DR PO ×2 (08:26→16:26)
[2024-01-07] MEDS: Loratadine 10 MG TABLET PO (11:32)
[2024-01-07] MEDS: oxyCODONE HCl Immed Release 5 MG TABLET PO ×2 (12:20→21:55)
--- NOTE | 2024-01-07 12:25 | PC.NURSE ---
Md Singh made aware via tiger text at 07:41 pts BP 102/55 and HR 79, holding scheduled Metoprolol and Lasix. made aware at 11:25 Pt BP 94/55 and HR 83, holding scheduled Lasix. Pt requesting to come off of low sodium diet, notified no new orders.
--- NOTE | 2024-01-07 12:52 | P.PNIM_ITS ---
Subjective Subjective Date of Service: 01/07/24 Interval History: seen and evaluated this morning less anxious Hematoma area covered with dressing with no oozing or bleeding Hb dropped down to 9 no other events now Review of Systems Review of Systems: Yes all other systems are reviewed and are negative Physical Exam 2 Vital Signs: Vital Signs: Last Vital Signs Temp 96.9 F 01/07/24 07:37 Pulse 83 01/07/24 11:24 Resp 14 01/07/24 07:37 BP 94/55 L 01/07/24 11:34 Pulse Ox 98 01/07/24 11:27 O2 Del Method Room Air 01/07/24 11:27 O2 Flow Rate 2 01/06/24 20:00 Oxygen Flow Rate 2 01/04/24 18:51 BMI result Body Mass Index 24.7 Const: Other: Constitutional : Awake, interactive, anxious Neck : Normal inspection, Supple Cardiovascular : RRR, no JVP, no lower extremity edema Respiratory : good bilateral air entry, no crackles, wheezes or rhonchi Gastrointestinal: soft, lax, Normal bowel sounds, Non tender Skin : Warm, Dry, multiple bruises mainly lower extremities , hematoma evacuated and area covered with dressing. Neurological : Alert & oriented x3, No focal deficit Objective Data Active Medications Acetaminophen (Acetaminophen 325 Mg Tablet) 650 mg PO Q6H PRN PRN Reason: Pain, Mild (Pain Scale 1-3), fever or headache Last Admin: 01/05/24 02:25 Dose: 650 mg Documented By: CONNIE Albuterol Sulfate (Albuterol Sulfate (0.083%) 2.5 Mg/3 Ml Vial.Neb) 2.5 mg INHALE Q6H PRN PRN Reason: shortness of breath or wheezing Atorvastatin Calcium (Atorvastatin Calcium 40 Mg Tablet) 40 mg PO MOWEFR [facility] Last Admin: 01/05/24 13:59 Dose: Not Given Documented By: CHATA Non-Admin Reason: Patient Refused Benzonatate (Benzonatate 100 Mg Capsule) 100 mg PO TID PRN PRN Reason: Cough Calcium Carbonate (Calcium Carbonate 750 Mg Tab.Chew) 750 mg PO Q4H PRN PRN Reason: Heartburn Last Admin: 01/06/24 22:28 Dose: 750 mg Documented By: MARY ALICE Chlorhexidine Gluconate (Chlorhexidine Gluc Oral Rinse 15 Ml Mouthwash) 15 ml BUCCAL BID [facility] Last Admin: 01/07/24 08:15 Dose: 15 ml Documented By: AUDIE Diazepam (Diazepam 5 Mg Tablet) 5 mg PO QID PRN PRN Reason: anxiety Last Admin: 01/07/24 01:29 Dose: 5 mg Documented By: MARY ALICE Doxycycline Monohydrate (Doxycycline Monohydrate 100 Mg Capsule) 100 mg PO Q12H [facility] Last Admin: 01/07/24 06:33 Dose: 100 mg Documented By: MARY ALICE Enoxaparin Sodium (Enoxaparin Sodium 40 Mg/0.4 Ml Syringe) 40 mg SUBCUT Q24H [facility] Last Admin: 01/06/24 13:16 Dose: 40 mg Documented By: ISABEL Epinephrine (Epinephrine 1 Mg/Ml Vial) 0.3 mg IM ONCE PRN PRN Reason: Anaphylaxis Ferrous Sulfate (Ferrous Sulfate 324 Mg Tablet.) 324 mg PO BIDWM [facility] Last Admin: 01/07/24 08:26 Dose: 324 mg Documented By: AUDIE Fluticasone/Vilanterol (Fluticasone/Vilanterol 200/25 Blst.W.Dev) 1 puff INHALE RDAILY [facility] Last Admin: 01/07/24 08:14 Dose: Not Given Documented By: NATHAN Non-Admin Reason: Patient Refused Furosemide (Furosemide 40 Mg Tablet) 40 mg PO DAILY@1200 [facility]; Protocol Last Admin: 01/07/24 11:34 Dose: Not Given Documented By: AUDIE Non-Admin Reason: held for BP of 94/55 Furosemide (Furosemide 40 Mg Tablet) 80 mg PO DAILY [facility]; Protocol Last Admin: 01/07/24 08:23 Dose: Not Given Documented By: AUDIE Non-Admin Reason: Hold per MD low BP Guaifenesin (Guaifenesin 200 Mg/10 Ml 10 Ml Liquid) 10 ml PO Q4H PRN PRN Reason: Cough Last Admin: 01/06/24 12:18 Dose: 10 ml Documented By: ISABEL Lactic Acid (Ammonium Lactate 12 % Lotion 226 Gm Bottle) 1 appl TOPICAL BID PRN; Protocol PRN Reason: Dry Skin Levothyroxine Sodium (Levothyroxine Sodium 50 Mcg Tablet) 50 mcg PO SuSa@0600 [facility] Last Admin: 01/07/24 06:32 Dose: 50 mcg Documented By: MARY ALICE Levothyroxine Sodium (Levothyroxine Sodium 25 Mcg Tablet) 25 mcg PO MOTUWETHFR@0600 [facility] Loratadine (Loratadine 10 Mg Tablet) 10 mg PO DAILY PRN PRN Reason: Allergic Symptoms Last Admin: 01/07/24 11:32 Dose: 10 mg Documented By: AUDIE Meclizine HCl (Meclizine Hcl 25 Mg Tablet) 25 mg PO TID PRN PRN Reason: dizziness Melatonin (Melatonin 3 Mg Tablet) 6 mg PO BEDTIME PRN PRN Reason: Insomnia Metoprolol Succinate (Metoprolol Succinate Er 50 Mg Tab.Er.24h) 50 mg PO BID [facility]; Protocol Last Admin: 01/07/24 08:24 Dose: Not Given Documented By: AUDIE Non-Admin Reason: low BP held per Montelukast Sodium (Montelukast Sodium 10 Mg Tablet) 10 mg PO DAILY [facility] Last Admin: 01/07/24 08:15 Dose: 10 mg Documented By: AUDIE Nystatin (Nystatin Powder 15 Gm Bottle) 1 appl TOPICAL TID [facility]; Protocol Last Admin: 01/07/24 08:20 Dose: 1 appl Documented By: AUDIE Ondansetron HCl (Ondansetron Hcl 4 Mg/2 Ml Vial) 4 mg IVPUSH Q8H PRN PRN Reason: Nausea and Vomiting Oxycodone HCl (Oxycodone Hcl Immed Release 5 Mg Tablet) 5 mg PO Q3H PRN PRN Reason: Pain, Moderate(Pain Scale 4-6) Last Admin: 01/07/24 12:20 Dose: 5 mg Documented By: AUDIE Polyethylene Glycol (Polyethylene Glycol 3350 17 Gm Powd.Pack) 17 gm PO DAILY PRN PRN Reason: Constipation Potassium Chloride (Potassium Chloride Packet 20 Meq Packet) 20 meq PO DAILY [facility] Last Admin: 01/07/24 08:17 Dose: 20 meq Documented By: AUDIE Prednisone (Prednisone 2.5 Mg Tablet) 2.5 mg PO Q48H [facility] Last Admin: 01/06/24 12:06 Dose: 2.5 mg Documented By: COTEMA Sodium Chloride (0.9 % Sodium Chloride Flush 3 Ml Syringe) 3 ml IVFLUSH QSHIFT [facility] Last Admin: 01/07/24 08:18 Dose: 3 ml Documented By: AUDIE Trazodone HCl (Trazodone Hcl 100 Mg Tablet) 100 mg PO BEDTIME [facility] Last Admin: 01/06/24 21:01 Dose: 100 mg Documented By: MARY ALICE Labs 01/07/24 05:28 01/06/24 05:52 Labs: Laboratory Results - last 24 hr 01/07/24 05:28 MCV 100.4 H MCH 33.5 H MCHC 33.3 RDW 13.5 Plt Count 179 MPV 11.8 Absolute Nucleated RBC 0.000 Nucleated RBC % (auto) 0.0 PT 17.0 H D INR 1.4 H Assessment and Plan (1) Hematoma of right lower leg: Status: Acute (2) Warfarin anticoagulation: Status: Acute (3) Chronic hypercapnic respiratory failure: Status: Acute Plan Pt is an 78-year-old female with a complex PMH significant for CAD s/p NSTEMI, HFpEF, hx of subarachnoid hemorrhage, COPD, pulmonary hypertension, chronic hypercarbic respiratory failure on 2L supplemental home O2 prn, KANDY on BiPAP at night, hx of non-small cell lung cancer s/p chemo, radiation, and left upper lobe lobectomy, antiphospholipid antibody syndrome, hx of DVT/PE on Coumadin, and anxiety who presents to the ED for evaluation of right lower extremity pain, bruising, and swelling. Pt will be admitted to the hospital for treatment and further evaluation of large right lower leg hematoma. Acute on chronic blood loss anemia Hb dropped to 9 from baseline around 11 monitor H&H transfuse if falls below 8 Right lower leg hematoma local care, pressure for compression Hold Coumadin Vascular surgery did evacuate the hematoma but might still need to re-do it next week Follow H&H Hx of DVT/PE Hold Coumadin Goal of INR 1.4-2.0 per her excellence specialist at [facility] d/t antiphospholipid syndrome To restart when ok by Vascular Cough CXR negative for any acute findings Mucinex COPD Not in acute exacerbation Continue home inhalers, supplemental O2 prn HFpEF Not in acute exacerbation Continue home diuretics, metoprolol CAD Continue metoprolol, statin KANDY BiPAP at night Hypothyroidism Levothyroxine Anxiety Continue Valium Full Code DVT Prophylaxis: Lovenox SC for now Given the severity of the pt's condition and risk for bleeding, pt will require a hospitalization of overnight for treatment of?right lower extremity hematoma pending post intervention follow up Quality Stroke Does the patient have a stroke diagnosis?: No VTE Prior VTE?: No VTE Risk Level:: Medical - moderate - high VTE Device Contraindication: N/A - Device Ordered VTE Drug Contraindication: Treatment Not Indicated
[2024-01-07] MEDS: Enoxaparin Sodium 40 MG/0.4 ML SYRINGE SUBCUT (13:11)
[2024-01-07] MEDS: guaiFENesin 200 MG/10 ML 10 ML LIQUID PO (16:26)
--- NOTE | 2024-01-07 17:57 | PC.NURSE ---
Clarification made with MD Singh regarding pts activity level and restrictions. Pt reported MD telling her she was not allowed to walk . MD Stated via tiger text, she can walk as tolerated but short distance only in room until vascular give her the ok . Pt made aware. Pt able to tolerate ambulating to bathroom with 1A and walker or bedside commode depending on pain level. MD also made aware pt insistent on wearing 2L of oxygen at all times, pt saturating 98% on room air. Pt making demands not to have certain staff members caring for her. All safety measures in please.
[2024-01-07] MEDS: Metoprolol Succinate ER 50 MG TAB.ER.24H PO (20:30)
[2024-01-07] MEDS: Ammonium Lactate 12 % Lotion 226 GM BOTTLE 1 APPL TOPICAL (20:32)
[2024-01-07] MEDS: traZODone HCL 100 MG TABLET PO (21:55)
[2024-01-08 01:48] VITALS: BP 100/50; PULSE 99; RESP 18; TEMP 36.1; O2SAT 99
[2024-01-08] MEDS: diazePAM 5 MG TABLET PO (02:21)
[2024-01-08 06:15] LABS: Hematocrit 27.6 % (37.0-47.0); Mean Corpuscular HGB Conc 32.6 g/dl (31.0-35.0); Mean Corpuscular Hemoglobin 33.1 pg (27.0-33.0); Mean Corpuscular Volume 101.5 fL (80.0-98.0); Mean Platelet Volume 11.5 fL (9.4-12.3); Platelet Count 186 X10*3/uL (160-400); Red Blood Count 2.72 X10*6/uL (4.20-5.50); Red Cell Distribution Width 13.3 % (11.0-16.0); White Blood Count 10.2 X10*3/uL (4.8-10.8)
[2024-01-08] MEDS: Levothyroxine Sodium 25 MCG TABLET PO (06:20)
[2024-01-08] MEDS: Doxycycline Monohydrate 100 MG CAPSULE PO ×2 (06:20→18:01)
[2024-01-08 06:28] LABS: Anion Gap 10 (12-20); Blood Urea Nitrogen 18 mg/dL (9-16); Calcium 10.4 mg/dL (8.4-10.2); Carbon Dioxide 30 mmol/L (22-29); Chloride 100 mmol/L (96-108); Creatinine Clr Calc Pharmacy 49.6; Estimated Glomerular Filt Rate > 60; Glucose Random 110 mg/dL (60-115); Potassium 3.8 mmol/L (3.3-5.1); Sodium 136 mmol/L (135-145)
[2024-01-08] MEDS: oxyCODONE HCl Immed Release 5 MG TABLET PO ×4 (06:39→22:52)
--- NOTE | 2024-01-08 07:16 | PC.NURSE ---
around 1 am pt went to br. when she came back to bed vs was taken she was anxious , stated also she was dizzy bp 180/80 assistant therapy aide stated she will come back to recheck and she reported to RN . WHEN BP WAS RECHECKED IT WAS 100/50 PT RESTING N BED. oxygen in high 96-97% no report of sob . pt received Valium and was noted comfortable resting in bed.
[2024-01-08 08:00] VITALS: BP 131/88; PULSE 81; RESP 18; TEMP 36.7; O2SAT 98
[2024-01-08] MEDS: Chlorhexidine Gluc Oral Rinse 15 ML MOUTHWASH BUCCAL ×2 (08:45→20:32)
[2024-01-08] MEDS: Potassium Chloride Packet 20 MEQ PACKET PO (08:45)
[2024-01-08] MEDS: Ferrous Sulfate 324 MG TABLET.DR PO ×2 (08:45→16:25)
[2024-01-08] MEDS: Montelukast Sodium 10 MG TABLET PO (08:45)
[2024-01-08] MEDS: Metoprolol Succinate ER 50 MG TAB.ER.24H PO (08:45)
[2024-01-08] MEDS: 0.9 % Sodium Chloride Flush 3 ML SYRINGE IVFLUSH ×3 (08:45→20:38)
[2024-01-08] MEDS: Furosemide 40 MG TABLET 80 MG PO (08:49)
[2024-01-08] MEDS: Nystatin Powder 15 GM BOTTLE 1 APPL TOPICAL ×3 (08:50→20:36)
--- NOTE | 2024-01-08 10:56 | HO.PM.IMPN ---
Subjective Subjective Date of Service: 01/08/24 Interval History: Seen and evaluated this morning less anxious Hematoma area covered with dressing with no oozing or bleeding Hb dropped down to 9 no other events now Review of Systems Review of Systems: Yes all other systems are reviewed and are negative Physical Exam Vital Signs: Vital Signs: Last Vital Signs Temp 98.1 F 01/08/24 08:00 Pulse 81 01/08/24 08:00 Resp 18 01/08/24 08:00 BP 131/88 01/08/24 08:00 Pulse Ox 98 01/08/24 08:00 O2 Del Method Room Air 01/08/24 08:00 O2 Flow Rate 2 01/06/24 20:00 Oxygen Flow Rate 2 01/04/24 18:51 BMI result Body Mass Index 24.7 Const: Other: Constitutional : Awake, interactive, anxious Neck : Normal inspection, Supple Cardiovascular : RRR, no JVP, no lower extremity edema Respiratory : good bilateral air entry, no crackles, wheezes or rhonchi Gastrointestinal: soft, lax, Normal bowel sounds, Non tender Skin : Warm, Dry, multiple bruises mainly lower extremities , hematoma evacuated and area covered with dressing. Neurological : Alert & oriented x3, No focal deficit Objective Data Active Medications Acetaminophen (Acetaminophen 325 Mg Tablet) 650 mg PO Q6H PRN PRN Reason: Pain, Mild (Pain Scale 1-3), fever or headache Last Admin: 01/05/24 02:25 Dose: 650 mg Documented By: CONNIE Albuterol Sulfate (Albuterol Sulfate (0.083%) 2.5 Mg/3 Ml Vial.Neb) 2.5 mg INHALE Q6H PRN PRN Reason: shortness of breath or wheezing Atorvastatin Calcium (Atorvastatin Calcium 40 Mg Tablet) 40 mg PO MOWEFR MATHEW Last Admin: 01/05/24 13:59 Dose: Not Given Documented By: CHATA Non-Admin Reason: Patient Refused Benzonatate (Benzonatate 100 Mg Capsule) 100 mg PO TID PRN PRN Reason: Cough Calcium Carbonate (Calcium Carbonate 750 Mg Tab.Chew) 750 mg PO Q4H PRN PRN Reason: Heartburn Last Admin: 01/06/24 22:28 Dose: 750 mg Documented By: MARY ALICE Chlorhexidine Gluconate (Chlorhexidine Gluc Oral Rinse 15 Ml Mouthwash) 15 ml BUCCAL BID [facility] Last Admin: 01/08/24 08:45 Dose: 15 ml Documented By: HARVINDER Diazepam (Diazepam 5 Mg Tablet) 5 mg PO QID PRN PRN Reason: anxiety Last Admin: 01/08/24 02:21 Dose: 5 mg Documented By: MANINDER Doxycycline Monohydrate (Doxycycline Monohydrate 100 Mg Capsule) 100 mg PO Q12H [facility] Last Admin: 01/08/24 06:20 Dose: 100 mg Documented By: MANINDER Enoxaparin Sodium (Enoxaparin Sodium 40 Mg/0.4 Ml Syringe) 40 mg SUBCUT Q24H [facility] Last Admin: 01/07/24 13:11 Dose: 40 mg Documented By: AUDIE Epinephrine (Epinephrine 1 Mg/Ml Vial) 0.3 mg IM ONCE PRN PRN Reason: Anaphylaxis Ferrous Sulfate (Ferrous Sulfate 324 Mg Tablet.Dr) 324 mg PO BIDWM [facility] Last Admin: 01/08/24 08:45 Dose: 324 mg Documented By: HARVINDER Fluticasone/Vilanterol (Fluticasone/Vilanterol 200/25 Blst.W.Dev) 1 puff INHALE RDAILY [facility] Last Admin: 01/08/24 08:04 Dose: Not Given Documented By: MARILEE Non-Admin Reason: Patient Refused Furosemide (Furosemide 40 Mg Tablet) 40 mg PO DAILY@1200 [facility]; Protocol Last Admin: 01/08/24 08:45 Dose: 40 mg Documented By: HARVINDER Furosemide (Furosemide 40 Mg Tablet) 80 mg PO DAILY [facility]; Protocol Last Admin: 01/08/24 08:49 Dose: 80 mg Documented By: HARVINDER Guaifenesin (Guaifenesin 200 Mg/10 Ml 10 Ml Liquid) 10 ml PO Q4H PRN PRN Reason: Cough Last Admin: 01/07/24 16:26 Dose: 10 ml Documented By: AUDIE Lactic Acid (Ammonium Lactate 12 % Lotion 226 Gm Bottle) 1 appl TOPICAL BID PRN; Protocol PRN Reason: Dry Skin Last Admin: 01/07/24 20:32 Dose: 1 appl Documented By: MANINDER Levothyroxine Sodium (Levothyroxine Sodium 50 Mcg Tablet) 50 mcg PO SuSa@0600 [facility] Last Admin: 01/07/24 06:32 Dose: 50 mcg Documented By: MARY ALICE Levothyroxine Sodium (Levothyroxine Sodium 25 Mcg Tablet) 25 mcg PO MOTUWETHFR@0600 [facility] Last Admin: 01/08/24 06:20 Dose: 25 mcg Documented By: MANINDER Loratadine (Loratadine 10 Mg Tablet) 10 mg PO DAILY PRN PRN Reason: Allergic Symptoms Last Admin: 01/07/24 11:32 Dose: 10 mg Documented By: AUDIE Meclizine HCl (Meclizine Hcl 25 Mg Tablet) 25 mg PO TID PRN PRN Reason: dizziness Melatonin (Melatonin 3 Mg Tablet) 6 mg PO BEDTIME PRN PRN Reason: Insomnia Metoprolol Succinate (Metoprolol Succinate Er 50 Mg Tab.Er.24h) 50 mg PO BID [facility]; Protocol Last Admin: 01/08/24 08:45 Dose: 50 mg Documented By: HARVINDER Montelukast Sodium (Montelukast Sodium 10 Mg Tablet) 10 mg PO DAILY [facility] Last Admin: 01/08/24 08:45 Dose: 10 mg Documented By: HARVINDER Nystatin (Nystatin Powder 15 Gm Bottle) 1 appl TOPICAL TID [facility]; Protocol Last Admin: 01/08/24 08:50 Dose: 1 appl Documented By: HARVINDER Ondansetron HCl (Ondansetron Hcl 4 Mg/2 Ml Vial) 4 mg IVPUSH Q8H PRN PRN Reason: Nausea and Vomiting Oxycodone HCl (Oxycodone Hcl Immed Release 5 Mg Tablet) 5 mg PO Q3H PRN PRN Reason: Pain, Moderate(Pain Scale 4-6) Last Admin: 01/08/24 06:39 Dose: 5 mg Documented By: MANINDER Polyethylene Glycol (Polyethylene Glycol 3350 17 Gm Powd.Pack) 17 gm PO DAILY PRN PRN Reason: Constipation Potassium Chloride (Potassium Chloride Packet 20 Meq Packet) 20 meq PO DAILY [facility] Last Admin: 01/08/24 08:45 Dose: 20 meq Documented By: HARVINDER Prednisone (Prednisone 2.5 Mg Tablet) 2.5 mg PO Q48H [facility] Last Admin: 01/06/24 12:06 Dose: 2.5 mg Documented By: COTEMA Sodium Chloride (0.9 % Sodium Chloride Flush 3 Ml Syringe) 3 ml IVFLUSH QSHIFT [facility] Last Admin: 01/08/24 08:45 Dose: 3 ml Documented By: HARVINDER Trazodone HCl (Trazodone Hcl 100 Mg Tablet) 100 mg PO BEDTIME [facility] Last Admin: 01/07/24 21:55 Dose: 100 mg Documented By: MANINDER Warfarin Sodium (Warfarin Sodium 2.5 Mg Tablet) 2.5 mg PO DAILY [facility] Labs 01/08/24 05:48 01/08/24 05:48 Labs: Laboratory Results - last 24 hr 01/08/24 05:48 MCV 101.5 H MCH 33.1 H MCHC 32.6 RDW 13.3 Plt Count 186 MPV 11.5 Absolute Nucleated RBC 0.000 Nucleated RBC % (auto) 0.0 Anion Gap 10 L Estim Creat Clear Calc 49.6 Estimated GFR > 60 Random Glucose 110 Calcium 10.4 H Assessment and Plan (1) Warfarin anticoagulation: Status: Acute (2) Hematoma of right lower leg: Status: Acute (3) Complex sleep apnea syndrome: Status: Acute (4) Chronic hypercapnic respiratory failure: Status: Acute Plan Pt is an 78-year-old female with a complex PMH significant for CAD s/p NSTEMI, HFpEF, hx of subarachnoid hemorrhage, COPD, pulmonary hypertension, chronic hypercarbic respiratory failure on 2L supplemental home O2 prn, KANDY on BiPAP at night, hx of non-small cell lung cancer s/p chemo, radiation, and left upper lobe lobectomy, antiphospholipid antibody syndrome, hx of DVT/PE on Coumadin, and anxiety who presents to the ED for evaluation of right lower extremity pain, bruising, and swelling. Pt will be admitted to the hospital for treatment and further evaluation of large right lower leg hematoma. 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 [employer] d/t antiphospholipid syndrome restart Warfarin Cough CXR negative for any acute findings Mucinex COPD Not in acute exacerbation Continue home inhalers, supplemental O2 prn HFpEF Not in acute exacerbation Continue home diuretics, metoprolol CAD Continue metoprolol, statin KANDY BiPAP at night Hypothyroidism Levothyroxine Anxiety Continue Valium Full Code DVT Prophylaxis: Lovenox SC + Warfarin Given the severity of the pt's condition and risk for bleeding, pt will require a hospitalization of overnight for treatment of?right lower extremity hematoma pending surgical follow up, wound care , restarting warfarin and placement Quality Stroke Does the patient have a stroke diagnosis?: No VTE Prior VTE?: No VTE Risk Level:: Medical - moderate - high VTE Device Contraindication: N/A - Device Ordered VTE Drug Contraindication: Treatment Not Indicated
--- NOTE | 2024-01-08 11:10 | P.PNVS_ITS ---
Subjective Subjective Date of Service: 01/08/24 Patient reports: no new complaints and still having pain Interval history: 78-year-old female presents for follow-up regarding right lower extremity hematoma. Continues to be a source of pain and discomfort for her. She does have the leg elevated on 3 pillows at the time of my exam. She reports motor and sensation was intact. She has been up out of bed to use a bedside commode. Physical Exam 2 Vital Signs: Vital Signs: Last Vital Signs Temp 98.1 F 01/08/24 08:00 Pulse 81 01/08/24 08:00 Resp 18 01/08/24 08:00 BP 131/88 01/08/24 08:00 Pulse Ox 98 01/08/24 08:00 O2 Del Method Room Air 01/08/24 08:00 O2 Flow Rate 2 01/06/24 20:00 Oxygen Flow Rate 2 01/04/24 18:51 BMI result Body Mass Index 24.7 Const: General: cooperative, healthy appearing and comfortable O rientation/consciousness: oriented to person, oriented to place and oriented to time HEENT: Head: Yes normal to inspection Neck: Neck: Yes normal visual inspection Carotids: no bruits Chest: Chest palpation & inspection: normal inspection of the chest Resp: Effort & Inspection: normal respiratory effort and able to speak in complete sentences Auscultation: clear to auscultation bilaterally, no crackles, no rales, no rhonchi and no wheezes Cardio: Rate: regular rate Rhythm: regular rhythm Heart sounds: S1 normal heart sound present and S2 normal heart sound present Bruits: no carotid bruits Peripheral pulses: Peripheral pulses 2+ throughout GI: Inspection: Yes normal to inspection Skin: Other: Right leg hematoma - no pressure noted. Tissue underlying hematoma appears to be stable. Wounds: no wounds Hair: normal Neuro: General: oriented to person, oriented to place and oriented to time Cranial nerves: Yes CN's II-XII intact bilaterally and Yes Normal hearing present Cognition (Neuro): normal cognition Motor exam (neuro): 5/5 motor strength present throughout Extrem: Other: venous exam: No significant superficial varicosities or spider telangiectasias, minimal edema General: No clubbing, No cyanosis and No edema Psych: Appearance: grossly normal Mental Status: mental status grossly normal Speech and movement: Normal speech and movement present Progress Note: A&P Assessment and plan (1) Hematoma of right lower leg: Status: Acute Assessment and Plan: In short patient has right lower extremity hematoma. It appears to be have stabilized. She will be restarted on anticoagulation. Physical therapy as tolerated. We will start with Silvadene dressings. Upon discharge as an outpatient she can [facility]. She can see us in approximately 2 weeks upon discharge. Time Spent With Patient Time: Total time managing care of this patient today ____ minutes. Procedures Date of Service Date of Service: 01/08/24 Quality Stroke Does the patient have a stroke diagnosis?: No VTE Prior VTE?: No VTE Risk Level:: Medical - moderate - high VTE Device Contraindication: N/A - Device Ordered VTE Drug Contraindication: Treatment Not Indicated
[2024-01-08 11:58] LABS: INTERNATIONAL NORM RATIO 1.3 (0.9-1.1); Prothrombin Time 15.2 SEC (11.1-13.3)
--- NOTE | 2024-01-08 12:50 | MHC.CM.PN ---
Addendum entered by Briana Walker RN 01/08/24 15:37: Patient accepted bed @ [facility]. CM will continue to follow. Original Note: Per MD rounds patient not medically cleared for dc. PT recommending STR. [facility] preference [facility]. However, they are unable to offer a bed. List of facilities provided to patient. Other preferences include [facility] and [facility]. Referrals sent via [facility]. CM will continue to follow.
--- NOTE | 2024-01-08 13:46 | HO.WOUND ---
Wound Consult: Initial 78yr old?female admitted to [facility] on 01/04/24 - See progress notes and H&P for detailed history.? Wound consult placed for Right Leg wound.? Chart review reveals Dr. Ratliff is following patient and made topical recommendations for Silvadene dressings and follow up outpt wound clinic and with him 2 weeks. Will defer topical recommendations to Dr. Ratliff at this time, Dr. Singh notifed via TT.
[2024-01-08 14:25] VITALS: BP 102/50
[2024-01-08] MEDS: predniSONE 2.5 MG TABLET PO (14:30)
[2024-01-08 15:30] VITALS: BP 107/53; PULSE 83; RESP 20; TEMP 36.6; O2SAT 100
[2024-01-08] MEDS: Warfarin Sodium 2.5 MG TABLET PO (18:01)
[2024-01-08 19:56] VITALS: BP 102/57; PULSE 82; RESP 18; TEMP 36.5; O2SAT 93
[2024-01-08 20:32] VITALS: BP 102/57; PULSE 82
[2024-01-08] MEDS: Atorvastatin Calcium 40 MG TABLET PO (20:32)
[2024-01-08] MEDS: traZODone HCL 100 MG TABLET PO (22:45)
--- NOTE | 2024-01-09 00:53 | PC.NURSE ---
On 01/07 at 2031, pt's BP was 102/57 and HR was 82. [place] text to Dr. Denis regarding 2100 [address] Denis said to hold med. Will continue to monitor.
[2024-01-09 03:43] VITALS: BP 110/52; PULSE 72; RESP 16; TEMP 36; O2SAT 98
[2024-01-09] MEDS: Levothyroxine Sodium 25 MCG TABLET PO (06:07)
[2024-01-09] MEDS: Doxycycline Monohydrate 100 MG CAPSULE PO (06:07)
[2024-01-09 06:24] LABS: Hematocrit 29.5 % (37.0-47.0); Hemoglobin 9.7 g/dl (12.0-16.0); Mean Corpuscular HGB Conc 32.9 g/dl (31.0-35.0); Mean Corpuscular Hemoglobin 33.4 pg (27.0-33.0); Mean Corpuscular Volume 101.7 fL (80.0-98.0); Mean Platelet Volume 11.3 fL (9.4-12.3); Platelet Count 231 X10*3/uL (160-400); Red Cell Distribution Width 13.4 % (11.0-16.0); White Blood Count 11.6 X10*3/uL (4.8-10.8)
[2024-01-09 06:31] LABS: INTERNATIONAL NORM RATIO 1.1 (0.9-1.1); Prothrombin Time 13.7 SEC (11.1-13.3)
[2024-01-09 07:47] VITALS: BP 122/57; PULSE 87; RESP 17; TEMP 36.2; O2SAT 100
[2024-01-09] MEDS: Montelukast Sodium 10 MG TABLET PO (08:23)
[2024-01-09] MEDS: 0.9 % Sodium Chloride Flush 3 ML SYRINGE IVFLUSH (08:23)
[2024-01-09] MEDS: Metoprolol Succinate ER 50 MG TAB.ER.24H PO (08:23)
[2024-01-09] MEDS: Potassium Chloride Packet 20 MEQ PACKET PO (08:23)
[2024-01-09] MEDS: Ferrous Sulfate 324 MG TABLET.DR PO (08:23)
[2024-01-09] MEDS: Chlorhexidine Gluc Oral Rinse 15 ML MOUTHWASH BUCCAL (08:23)
[2024-01-09] MEDS: Furosemide 40 MG TABLET 80 MG PO (08:24)
[2024-01-09] MEDS: Enoxaparin Sodium 40 MG/0.4 ML SYRINGE SUBCUT (08:27)
[2024-01-09] MEDS: Nystatin Powder 15 GM BOTTLE 1 APPL TOPICAL (08:30)
--- NOTE | 2024-01-09 09:12 | HO.VASCPN ---
Subjective Subjective Date of Service: 01/09/24 Patient reports: no new complaints, feels better and pain is less Interval history: Patient seen and examined. No significant events overnight. Reports that the leg does feel somewhat better today. Did work with physical therapy yesterday. Unfortunately we were unable to start Silvadene cream due to her sulfa allergy. Physical Exam Vital Signs: Vital Signs: Last Vital Signs Temp 97.1 F 01/09/24 07:47 Pulse 87 01/09/24 07:47 Resp 17 01/09/24 07:47 BP 122/57 L 01/09/24 07:47 Pulse Ox 100 01/09/24 07:47 O2 Del Method Nasal Cannula 01/09/24 07:47 O2 Flow Rate 2 01/09/24 07:47 Oxygen Flow Rate 2 01/04/24 18:51 BMI result Body Mass Index 24.7 Const: General: cooperative, healthy appearing and no acute distress Orientation/consciousness: oriented to person, oriented to place and oriented to time HEENT: Head: Yes normal to inspection Neck: Carotids: no bruits Chest: Chest palpation & inspection: normal inspection of the chest Resp: Effort & Inspection: normal respiratory effort and able to speak in complete sentences Auscultation: clear to auscultation bilaterally Cardio: Rate: regular rate Heart sounds: S1 normal heart sound present and S2 normal heart sound present GI: Inspection: Yes normal to inspection Skin: Other: Right leg dressing clean dry intact General skin exam: no rashes or lesions noted Wounds: no wounds Neuro: General: oriented to person, oriented to place, oriented to time and CN's II-XI intact bilaterally Extrem: General: Yes normal to inspection, Yes full ROM and Yes no clubbing, cyanosis or edema Psych: Appearance: grossly normal and well kempt Speech and movement: Normal speech and movement present Affect: normal affect Progress Note: A&P Assessment and plan (1) Hematoma of right lower leg: Status: Acute Assessment and Plan: In short patient appears to have a stable right lower extremity hematoma. Pressure has been released. We will be starting collagenase to try to improve this area somewhat. Would recommend physical therapy as tolerated and have her ambulating. Once therapeutic stable from my perspective for discharge. Would set up follow-up with [facility]. She can see us upon discharge as well. Thank you for allowing us to participate in her care. Time Spent With Patient Time: Total time managing care of this patient today ____ minutes. Procedures Date of Service Date of Service: 01/09/24 Quality Stroke Does the patient have a stroke diagnosis?: No VTE Prior VTE?: No VTE Risk Level:: Medical - moderate - high VTE Device Contraindication: N/A - Device Ordered VTE Drug Contraindication: Treatment Not Indicated
[2024-01-09 12:20] VITALS: BP 139/60; PULSE 91; RESP 18; TEMP 36.3; O2SAT 96
[2024-01-09] MEDS: Furosemide 40 MG TABLET PO (12:26)
[2024-01-09] MEDS: Collagenase Clostridium Hist. 30 GM TUBE 1 APPL TOPICAL (12:26)
[2024-01-09] MEDS: oxyCODONE HCl Immed Release 5 MG TABLET PO (12:29)
--- NOTE | 2024-01-09 12:45 | PM.DS ---
DS: Providers Provider Date of Service: 01/09/24 Date of admission: 01/04/24 22:24 Primary care physician: Caitlyn Bowie MD Consults: 01/04/24 22:39 Consult to Vascular Surgery Routine Consulting Provider[place] [facility] Reason for consultation: Large right leg hematoma 01/05/24 05:29 Consult to Psychiatry Routine Consulting Provider: Psych Covering Reason for consultation: Anxiety Has provider been notified: No 01/08/24 11:05 Consult to Wound Care Routine Reason for consultation: Large hematoma post evacuation DS: Diagnosis Discharge Diagnosis (1) Hematoma of right lower leg: Status: Resolved (2) Warfarin anticoagulation: Status: Inactive (3) Complex sleep apnea syndrome: Status: Inactive (4) Chronic hypercapnic respiratory failure: Status: Inactive (5) MARTIN (iron deficiency anemia): Status: Acute DS: Summary Hospital Course Hospital Course: Admission note HPI Pt is an 78-year-old female with a complex PMH significant for CAD s/p NSTEMI, HFpEF, hx of subarachnoid hemorrhage, COPD, pulmonary hypertension, chronic hypercarbic respiratory failure on 2L supplemental home O2 prn, KANDY on BiPAP at night, hx of non-small cell lung cancer s/p chemo, radiation, and left upper lobe lobectomy, antiphospholipid antibody syndrome, hx of DVT/PE on Coumadin, and anxiety who presents to the ED for evaluation of right lower extremity pain, bruising, and swelling. Patient reports that she was at the grocery store earlier this evening when she accidentally hit her right lagos on the back of the shopping cart. Area immediately swelled to around the size of a golf ball, but patient was able to walk to her car and travel home though had some discomfort with walking. At home patient noted area of bruising and swelling dramatically increased over the next few hours, particularly on the lateral and superior aspect of her lagos. Patient also experienced increasing ?burning hot? pain across her entire leg. Eventually called EMS to bring her to the hospital for further evaluation. Patient denies numbness or tingling in her right lower extremity. Denies any other acute medical concerns or complaints. Of note, patient reports had a similar episode 5 years prior where she suddenly developed right lower extremity pain not associated with any trauma. Presented to [facility] ED where her lagos was wrapped and she was discharged home. Reports then fainted when she got home and came back [facility] ED where she was admitted to the hospital. States when bandage was removed had large hematoma on her right lower extremity which then ?burst? when she was getting prepped for surgical intervention. In the ED pt was hypertensive to 151/70, vitals otherwise stable. Labs were significant for H&H of 11.5/30.2 and INR 1.8, otherwise grossly unremarkable and baseline for patient. Chronically elevated leukocytosis of 11.2. No significant electrolyte abnormalities. Renal and hepatic function WNL. ED clinician contacted vascular surgery who suggested elevation, ice packs, Bang wraps, and holding Coumadin. Patient initially anxious about not being at a trauma center, though [facility] [place] contacted and not open for such transfers. Pt was treated with Valium. Pt will be admitted to the hospital for treatment and further evaluation of large right lower leg hematoma. Hospital course # Right lower leg hematoma with Acute on chronic blood loss anemia as a result of trauma that was evaluated by vascular surgeon dr Ratliff who did bedside evacuation of the hematoma and followed her during the hospital stay. Warfarin was held as local care, pressure for compression applied with no further bleeding during hospital stay. Hb dropped to 9 from baseline around 11 and she was started on Iron supplement. Vascular recommended restarting Warfarin which was bridged with Lovenox as INR dropped to 1.1. To follow with dr Ratliff and wound clinic as outpatient. Doxycycline started as prophylaxis. Wound care recommendation by Vascular: apply collagenase to open area of right lower extremity, cover with 4 x 4 ABD pad and Kerlix wrap. To be changed daily. # Hx of DVT/PE Had to Hold Coumadin with INR dropping to 1.1 on the day of discharge. Bridging with Lovenox for Hx of DVT\PE and Goal of INR 1.4-2.0 per her uncrater at [facility] d/t antiphospholipid syndrome restarted Warfarin 4 mg day of discharge. To continue home dose of 2.5 and check INR daily until INR =/> 1.4. # Chronic hypoxic respiratory failure, COPD, CXR negative for any acute findings, Continue home inhalers, supplemental O2 prn # HFpEF, CAD, Continue home diuretics, metoprolol, statin # KANDY, BiPAP at night Discharge plan Continue bridging Lovenox with Warfarin Follow INR daily, stop Lovenox when INR = or >1.4 Doxycycline prophylaxis for 5 more days Oxycodone for pain Use laxatives to avoid constipation Time Attestation Discharge Coordination Time (in mins): 36 Quality: Safe Use of Opioids Does Pt have an Active Cancer Diagnosis on the Problem List?: No Quality: Stroke Does the patient have a stroke diagnosis?: No Physical Exam Vital Signs: Vital Signs: Last Vital Signs Temp 97.3 F 01/09/24 12:20 Pulse 91 01/09/24 12:20 Resp 18 01/09/24 12:20 BP 139/60 01/09/24 12:20 Pulse Ox 96 01/09/24 12:20 O2 Del Method Room Air 01/09/24 12:20 O2 Flow Rate 2 01/09/24 07:47 Oxygen Flow Rate 2 01/04/24 18:51 BMI result Body Mass Index 24.7 Const: Other: Constitutional : Awake, interactive, anxious Neck : Normal inspection, Supple Cardiovascular : RRR, no JVP, no lower extremity edema Respiratory : good bilateral air entry, no crackles, wheezes or rhonchi, on O2 supplement Gastrointestinal: soft, lax, Normal bowel sounds, Non tender Skin : Warm, Dry, multiple bruises mainly lower extremities , dark discoloration of the skin around the hematoma area covered with dressing with no oozing or bleeding. Neurological : Alert & oriented x3, No focal deficit DS: Data Data Completed and Pending Completed studies during hospitalization [Text1]: Procedures Assistance with Respiratory Ventilation, Less than 24 Consecutive Hours, Continuous Positive Airway Pressure (06/14/22) Labs on day of discharge: Laboratory Results - last 24 hr 01/09/24 05:44 WBC 11.6 H RBC 2.90 L Hgb 9.7 L Hct 29.5 L MCV 101.7 H MCH 33.4 H MCHC 32.9 RDW 13.4 Plt Count 231 MPV 11.3 Absolute Nucleated RBC 0.000 Nucleated RBC % (auto) 0.0 PT 13.7 H INR 1.1 Imaging Chest x-ray: Radiologist's impression: ITS Impressions Chest X-Ray 01/05/24 11:10 IMPRESSION: Postsurgical changes to the left hemithorax and pleural and parenchymal changes at the left lung base similar to previous exams. Discharge Plan Discharge Anticipated Discharge Date/Time: 01/09/24 12:38 Patient Disposition: [facility] Discharge Diagnosis: Hematoma Warfarin therapy Physical deconditioning Referrals: [facility] [Outside] - 1 Week Caitlyn Bowie MD [Primary Care Provider] - 1 Week Discharge Medications: New doxycycline monohydrate 100 mg Capsule 100 mg PO Q12H Qty: 10 0RF enoxaparin 40 mg/0.4 mL Syringe 40 mg subcut Q24H 3 Days Qty: 1.2 0RF oxycodone 5 mg Tablet 5 mg PO Q4-6H PRN (Reason: Pain, Moderate(Pain Scale 4-6)) Qty: 20 0RF Rx Instructions: Partial Fill upon patient request. ferrous sulfate 324 mg (65 mg iron) Tablet,Delayed Release (Dr/Ec) 324 mg PO DAILY Qty: 90 0RF Continued meclizine 25 mg tablet 25 mg PO TID PRN (Reason: dizziness) 14 Days Qty: 42 0RF albuterol sulfate 2.5 mg /3 mL (0.083 %) solution for nebulization 2.5 mg inhalation Q6H PRN (Reason: shortness of breath or wheezing) 30 Days Qty: 180 11RF Advair HFA 230-21 mcg/actuation HFA aerosol inhaler 2 puff inhalation BID 90 Days Qty: 36 4RF potassium chloride 20 mEq packet 20 meq PO DAILY Qty: 50 3RF chlorhexidine gluconate 0.12 % mouthwash 15 ml buccal BID 14 Days Qty: 420 1RF levothyroxine [Synthroid] 25 mcg tablet 25 mcg PO MOTUWETHFR@0600 furosemide 40 mg tablet 80 mg PO DAILY nystatin 100,000 unit/gram powder 1 appl topical TID diazepam 5 mg tablet 2.5 - 5 mg PO QID PRN (Reason: anxiety) furosemide 40 mg Tablet 40 mg PO DAILY@1200 warfarin [Jantoven] 2.5 mg Tablet 2.5 mg PO DAILY levothyroxine [Synthroid] 25 mcg Tablet 50 mcg PO SUSA rosuvastatin 10 mg tablet 10 mg PO MOWEFR (DME) nebulizers Mis See Rx Instructions .Route Rx Instructions: As directed (DME) CPAP Machine/Device Device See Rx Instructions .Route Rx Instructions: As directed (DME) Oxygen Home Use Kit See Rx Instructions .Route Rx Instructions: As directed epinephrine 0.3 mg/0.3 mL auto-injector 0.3 mg IM USEASDIRECTD PRN (Reason: Allergic Reaction) metoprolol succinate [Toprol XL] 50 mg tablet extended release 24 hr 50 mg PO BID Qty: 120 3RF prednisone 2.5 mg tablet 2.5 mg PO Q48H levocetirizine 5 mg tablet 5 mg PO DAILY 90 Days Qty: 90 3RF trazodone 50 mg tablet 100 mg PO BEDTIME Qty: 180 3RF montelukast 10 mg tablet 10 mg PO DAILY Qty: 90 3RF Discharge Orders: Discharge Order (Routine); Ordered 01/09/24 Ordered By: Apryl Singh Diet: Low salt diet Activity on Discharge: As tolerated Stand Alone Forms: Patient Portal Discharge page Print Language: Vietnamese Activity Restrictions/Additional Instructions: Wound care upon discharge: xeroform, 4x4 and Kerlix wrap to be changed daily. Please at [facility] follow[facility] Care Plan Goals: Continue bridging Lovenox with Warfarin Follow INR daily, stop Lovenox when INR = or >1.4 Doxycycline prophylaxis for 5 more days Oxycodone for pain Use laxatives to avoid constipation Health Concerns: Read below Plan of Treatment: Read below Assessment: Read below Discharge Date/Time: 01/09/24 14:20
[2024-01-09] MEDS: diazePAM 5 MG TABLET PO (13:23)
[2024-01-09] MEDS: Warfarin Sodium 4 MG TABLET PO (13:23)
--- NOTE | 2024-01-09 13:46 | MHC.CM.PN ---
IMM 01/09/24 Patient is discharged to [facility] at 2pm today for STR. BLS will transport at 2pm today.
== END 2024-01-09 14:20 | disposition skilled nursing facility (03) | DRG 605 ==
LOC: HO.ED 22:08 → HO.EDOVER 22:44 → HO.S3 23:34
PROVIDERS: Admitting Provider Student in an Organized Health Care Education/Training Program; Emergency Provider Emergency Medicine; PCP Internal Medicine; Visit Provider Student in an Organized Health Care Education/Training Program
DX: S80.11XA Contusion of right lower leg, initial encounter (principal); D80.1 Nonfamilial hypogammaglobulinemia; D68.51 Activated protein C resistance; I50.32 Chronic diastolic (congestive) heart failure; D62 Acute posthemorrhagic anemia; J96.12 Chronic respiratory failure with hypercapnia; W22.8XXA Striking against or struck by other objects, initial encounter; I25.10 Atherosclerotic heart disease of native coronary artery without angina pectoris; F41.9 Anxiety disorder, unspecified; J44.9 Chronic obstructive pulmonary disease, unspecified; E03.9 Hypothyroidism, unspecified; G47.33 Obstructive sleep apnea (adult) (pediatric); Z86.718 Personal history of other venous thrombosis and embolism; Z86.711 Personal history of pulmonary embolism; Z90.2 Acquired absence of lung [part of]; Z79.01 Long term (current) use of anticoagulants; Z79.52 Long term (current) use of systemic steroids; Z79.890 Hormone replacement therapy; Z79.899 Other long term (current) drug therapy
CPT/HCPCS: 36415; 71045; 80048; 80053; 80076; 82180; 82607; 82728; 82746; 83521; 83540; 84425; 84443; 84597; 85025; 85027; 85379; 85610; 86850; 86900; 86901; 94640; 97110; 97161; 99285; J1650; J2270

== ENCOUNTER → 2024-01-04 22:24 | Outpatient (BNV) | payer MEDICARE, SELFPAY | PROVIDERS: Admitting Provider Student in an Organized Health Care Education/Training Program; Emergency Provider Emergency Medicine; PCP Internal Medicine; Visit Provider Surgery Vascular Surgery | DX: S80.11XA Contusion of right lower leg, initial encounter (principal) | CPT/HCPCS: 99222; 99232 ==

== ENCOUNTER → 2024-01-04 22:24 | Outpatient (BNV) | payer MEDICARE, SELFPAY | PROVIDERS: Admitting Provider Student in an Organized Health Care Education/Training Program; Emergency Provider Emergency Medicine; PCP Internal Medicine; Visit Provider Student in an Organized Health Care Education/Training Program | DX: S80.11XA Contusion of right lower leg, initial encounter (principal); Z79.01 Long term (current) use of anticoagulants; G47.31 Primary central sleep apnea | CPT/HCPCS: 99223; 99232; 99239 ==

== ENCOUNTER 2024-01-10 12:25 | Outpatient (REF) | payer MEDICARE, SELFPAY ==
[2024-01-10 12:28] LABS: MANUAL DIFF FLAG NO
[2024-01-10 12:46] LABS: Basophils Absolute Auto 0.1 X10*3/uL (0.0-0.2); Basophils Percent Auto 0.6 % (0-2); Eosinophils Absolute Auto 0.1 X10*3/uL (0.0-0.4); Eosinophils Percent Auto 0.7 % (0-4); Hematocrit 30.2 % (37.0-47.0); Hemoglobin 9.9 g/dl (12.0-16.0); Imm Gran Abs Auto 0.18 X10*3/uL (0.00-0.03); Imm Gran Pct Auto 1.3 % (0.0-0.4); Lymphocytes Absolute Auto 0.7 X10*3/uL (1.2-4.9); Lymphocytes Percent Auto 5.5 % (20-40); Mean Corpuscular HGB Conc 32.8 g/dl (31.0-35.0); Mean Corpuscular Hemoglobin 33.1 pg (27.0-33.0); Mean Platelet Volume 11.5 fL (9.4-12.3); Monocytes Absolute Auto 1.2 X10*3/uL (0.1-1.2); Monocytes Percent Auto 8.7 % (2-11); Neutrophils Absolute Auto 11.1 x10*3/uL (2.0-8.3); Neutrophils Percent Auto 83.2 % (45-73); Platelet Count 249 X10*3/uL (160-400); Red Blood Count 2.99 X10*6/uL (4.20-5.50); Red Cell Distribution Width 13.8 % (11.0-16.0); White Blood Count 13.4 X10*3/uL (4.8-10.8)
[2024-01-10 12:51] LABS: INTERNATIONAL NORM RATIO 1.3 (0.9-1.1); Prothrombin Time 15.9 SEC (11.1-13.3)
[2024-01-10 12:59] LABS: Alanine Aminotransferase 19 U/L (0-31); Albumin Level 3.6 g/dL (3.5-5.0); Alkaline Phosphatase 60 U/L (39-117); Anion Gap 12 (12-20); Aspartate Amino Transferase 25 U/L (5-31); Bilirubin Total 0.6 mg/dL (0.0-1.0); Blood Urea Nitrogen 21 mg/dL (9-16); Calcium 11.1 mg/dL (8.4-10.2); Carbon Dioxide 32 mmol/L (22-29); Chloride 97 mmol/L (96-108); Estimated Glomerular Filt Rate > 60; Glucose Random 90 mg/dL (60-115); Sodium 138 mmol/L (135-145); Total Protein 6.6 g/dL (6.5-8.0)
== END 2024-01-10 12:26 | disposition home or self-care (01) ==
LOC: HO.MMNH1L 12:25
PROVIDERS: Visit Provider Hospitalist
DX: M62.59 Muscle wasting and atrophy, not elsewhere classified, multiple sites (principal); S80.12XD Contusion of left lower leg, subsequent encounter
CPT/HCPCS: 36415; 80053; 85025; 85610

== ENCOUNTER 2024-01-12 10:17 | Outpatient (REF) | payer MEDICARE, SELFPAY ==
[2024-01-12 10:40] LABS: Prothrombin Time 24.1 SEC (11.1-13.3)
[2024-01-12 11:12] LABS: Potassium 4.5 mmol/L (3.3-5.1)
== END 2024-01-12 10:18 | disposition home or self-care (01) ==
LOC: HO.LNP 10:17
PROVIDERS: Visit Provider Hospitalist
DX: Z13.89 Encounter for screening for other disorder (principal)
CPT/HCPCS: 84132; 85610

== ENCOUNTER 2024-01-12 17:05 | Emergency (ER) | payer MEDICARE, SELFPAY ==
--- NOTE | 2024-01-12 | ECG_ITS ---
Test Reason : CHEST PAIN Blood Pressure : / mmHG Vent. Rate : 080 BPM Atrial Rate : 080 BPM P-R Int : 154 ms QRS Dur : 140 ms QT Int : 432 ms P-R-T Axes : 057 -61 066 degrees QTc Int : 498 ms Normal sinus rhythm Right bundle branch block Left anterior fascicular block Bifascicular block Abnormal ECG When compared with ECG of 31-OCT-2023 11:31, No significant change was found Referred By: Generic ED Physician Electronically Signed By:CAROL ANN PAK
--- NOTE | ~2024-01-12 | XR_ITS ---
EXAMINATION: PORTABLE CHEST 1 VIEW CLINICAL INFORMATION: cp. COMPARISON: 12/28/2023. TECHNIQUE: Portable frontal view of the chest was obtained. FINDINGS: Lungs well-expanded. There is persistent blunting left costophrenic angle consistent with a small left pleural effusion with associated left basilar consolidation/atelectasis. This is not significantly changed from the prior study. No overt edema or pneumothorax at this time. Mild loss of volume in the left hemithorax with mild shift of mediastinal structures to the left making evaluation of the cardiac silhouette difficult. No acute bony abnormality XR/XR chest 1V IMPRESSION: Small left effusion with associated left basilar consolidation/atelectasis similar to the 01/05/2024 study. No overt edema.
[2024-01-12 17:24] VITALS: BP 120/55; PULSE 78; RESP 19; TEMP 37.4; O2SAT 95; BMI 23.0
--- NOTE | 2024-01-12 17:59 | ED.CHESTPAIN ---
HPI - Chest Pain General Chief Complaint: Chest Pain Stated Complaint: from SNF cc chest pain, recent discharge for leg Time Seen by Provider: 01/12/24 17:44 Source: patient and EMS Mode of arrival: EMS Limitations: no limitations History of Present Illness ED Provider: Og Berger PA-C HPI narrative: 78 y/o female with PMHx COPD, KANDY on biPAP and home O2, pulmonary HTN, antiphospholipid antibody syndrome with hx of PE/DVT on chronic warfarin [goal INR 1.5-2 rather than 2.5-3 due to platelet dysfunction per her vp director of finance at [facility]], stage IIIA lung CA s/p LULobectomy and neoadjunvant chemoradiation, radiation pulmonary fibrosis, nonobstructive CAD s/p NSTEMI, HFpEF, hypogammoglobulinemia, hypothyroidism who presents to the ER via EMS from [facility] for evaluation of 01/16 upper chest pain, bilateral shoulder pain (R>L) that started at 8-9am today when she was laying down. She reports the pain has been constant but waxes and wanes. It is located in her bilateral upper chest and radiates up into her neck R>L. She reports the pain is acute on chronic. She has been getting oxycodone at [facility] for her leg and shoulde rpain. No associated SOB, diaphoresis or nausea. She has a recent admission here 01/03-01/08 for RLE hematoma s/p bedside evacuation by Dr. Ratliff. she had her Coumadin held due to worsening hematoma. She was eventually discharged with a Lovenox bridge to Coumadin with a goal of 1.4-2.0 per her vp director of finance. Her INR during admission was as low as 1.1. MD complaint: chest pain Onset (ago): hour(s) Timing of current episode: constant Prior episodes: No Onset: during rest Pain location: left chest and right chest Pain radiation: neck Severity: moderate Pain scale (0-10): 7 Quality: aching and sharp Context: history of DVT/PE Associated symptoms: palpitations Treatment prior to arrival: oxygen Risk Factors Pulmonary embolism risk factors: clotting disorder, history of deep vein thrombosis and history of pulmonary embolism Related Data Home Medications ?Medication ?Instructions ?Recorded ?Confirmed levothyroxine 25 mcg tablet 25 mcg PO MOTUWETHFR@0600 06/14/22 01/05/24 (Synthroid) CPAP (CPAP Machine/Device) 06/30/22 11/20/23 Oxygen Home Use 06/30/22 11/20/23 nebulizers 06/30/22 11/20/23 epinephrine 0.3 mg/0.3 mL 0.3 mg IM USEASDIRECTD PRN 07/14/22 01/05/24 injection, auto-injector Allergic Reaction prednisone 2.5 mg tablet 2.5 mg PO Q48H 08/09/23 01/05/24 diazepam 5 mg tablet 2.5 - 5 mg PO QID PRN anxiety 01/05/24 01/05/24 furosemide 40 mg tablet 40 mg PO DAILY@1200 01/05/24 01/05/24 furosemide 40 mg tablet 80 mg PO DAILY 01/05/24 01/05/24 levothyroxine 25 mcg tablet 50 mcg PO SUSA 01/05/24 01/05/24 (Synthroid) nystatin 100,000 unit/gram topical 1 appl topical TID 01/05/24 01/05/24 powder rosuvastatin 10 mg tablet 10 mg PO MOWEFR 01/05/24 01/05/24 warfarin 2.5 mg tablet (Jantoven) 2.5 mg PO DAILY 01/05/24 01/05/24 Previous Rx's ?Medication ?Instructions ?Recorded meclizine 25 mg tablet 25 mg PO TID PRN dizziness 14 days 09/12/22 #42 tabs albuterol sulfate 2.5 mg/3 mL 2.5 mg (3 mL) inhalation Q6H PRN 09/21/22 (0.083 %) solution for nebulization shortness of breath or wheezing 30 days #180 mL Advair HFA 230 mcg-21 2 puff inhalation BID 90 days #36 03/07/23 mcg/actuation aerosol inhaler grams (fluticasone propion-salmeterol) levocetirizine 5 mg tablet 5 mg PO DAILY 90 days #90 tabs 07/20/23 montelukast 10 mg tablet 10 mg PO DAILY #90 tabs 07/20/23 potassium chloride 20 mEq oral 20 meq PO DAILY #50 ea 07/20/23 packet trazodone 50 mg tablet 100 mg (2 x 50 mg) PO BEDTIME #180 07/20/23 tabs metoprolol succinate 50 mg 50 mg PO BID #120 tabs 08/14/23 tablet,extended release 24 hr (Toprol XL) chlorhexidine gluconate 0.12 % 15 ml buccal BID 14 days #420 mL 01/02/24 mouthwash doxycycline monohydrate 100 mg 100 mg PO Q12H #10 caps 01/09/24 capsule enoxaparin 40 mg/0.4 mL 40 mg (0.4 mL) subcut Q24H 3 days 01/09/24 subcutaneous syringe #1.2 mL ferrous sulfate 324 mg (65 mg 324 mg PO DAILY #90 tabs 01/09/24 iron) tablet,delayed release oxycodone 5 mg tablet 5 mg PO Q4-6H PRN Pain, 01/09/24 Moderate(Pain Scale 4-6) #20 tabs Allergies Allergy/AdvReac Type Severity Reaction Status Date / Time morphine Allergy Severe Itching Verified 01/12/24 17:40 avocado [AVOCADO] Allergy Mild ITCHY Verified 01/12/24 17:40 THROAT, RASH azithromycin [AZITHROMYCIN] Allergy Mild ITCHY Verified 01/12/24 17:40 THROAT, RASH barium iodide [BARIUM IODIDE] Allergy Mild ITCHY Verified 01/12/24 17:40 THROAT, RASH barium sulfate Allergy Mild Itch Verified 01/12/24 17:40 bee pollen [BEE STINGS] Allergy Mild ITCHY Verified 01/12/24 17:40 THROAT, RASH ciprofloxacin [From CIPRO] Allergy Mild ITCHY Verified 01/12/24 17:40 THROAT, RASH clarithromycin [From BIAXIN] Allergy Mild ITCHY Verified 01/12/24 17:40 THROAT, RASH diatrizoate meglumine Allergy Mild ITCHY Verified 01/12/24 17:40 [From GASTROGRAFIN] THROAT, RASH diatrizoate sodium Allergy Mild ITCHY Verified 01/12/24 17:40 [From GASTROGRAFIN] THROAT, RASH diclofenac [From VOLTAREN] Allergy Mild ITCHY Verified 01/12/24 17:40 THROAT, RASH erythromycin base Allergy Mild ITCHY Verified 01/12/24 17:40 [ERYTHROMYCIN BASE] THROAT, RASH gentamicin [GENTAMICIN] Allergy Mild ITCHY Verified 01/12/24 17:40 THROAT, RASH Iodinated Contrast Media Allergy Mild ITCHY Verified 01/12/24 17:40 [IVP DYE] THROAT, RASH levofloxacin [From LEVAQUIN] Allergy Mild ITCHY Verified 01/12/24 17:40 THROAT, RASH metronidazole [From FLAGYL] Allergy Mild ITCHY Verified 01/12/24 17:40 THROAT, RASH moxifloxacin [From AVELOX] Allergy Mild ITCHY Verified 01/12/24 17:40 THROAT, RASH Penicillins [PENICILLINS] Allergy Mild ITCHY Verified 01/12/24 17:40 THROAT, RASH shrimp [SHRIMP] Allergy Mild ITCHY Verified 01/12/24 17:40 THROAT, RASH Sulfa (Sulfonamide Allergy Mild ITCHY Verified 01/12/24 17:40 Antibiotics) THROAT, [SULFA (SULFONAMIDE RASH ANTIBIOTICS)] vancomycin [VANCOMYCIN] Allergy Mild ITCHY Verified 01/12/24 17:40 THROAT, RASH clindamycin AdvReac Intermediate Unknown Verified 01/12/24 17:40 Review of Systems Review of Systems: Yes all other systems are reviewed and are negative PMFSH Past Medical History Medical History Complex sleep apnea syndrome Chronic hypercapnic respiratory failure Leg pain Anemia Tachycardia DVT (deep venous thrombosis) COPD (chronic obstructive pulmonary disease) Compression fracture of body of thoracic vertebra ASD (atrial septal defect) Pleuritic chest pain History of COVID-19 Chronic anticoagulation Hypothyroidism GERD (gastroesophageal reflux disease) Hyperlipidemia Hypertension Factor 5 Leiden mutation, heterozygous History of non-ST elevation myocardial infarction (NSTEMI) Hypoxia Anxiety PTSD (post-traumatic stress disorder) Hemoptysis Dyspnea Tracheobronchitis CLARA positive Diverticulitis Allergic bronchitis (HFpEF) heart failure with preserved ejection fraction Subarachnoid bleed Insomnia Anti-phospholipid antibody syndrome Hypogammaglobulinemia Chronic respiratory failure Arterial insufficiency of lower extremity Complex regional pain syndrome i of right lower limb Post herpetic neuralgia Pulmonary hypertension Pericardial effusion Pulmonary emboli Pleural effusion Radiation fibrosis of lung Pneumonitis Pulmonary nodules KANDY treated with BiPAP Lung cancer Surgical History History of colonoscopy History of lung surgery History of tonsillectomy History of hysterectomy S/P mitral valve clip implantation History of cardiac cath Family History Family History Sister No problems noted. Mother Cardiovascular disease Daughter Tachycardia Other KANDY (obstructive sleep apnea) Social History Social History Household Members: None Housing: House Do you presently have visiting nurse or other home services: No Unable to assess alcohol history related to: Unknown Alcohol intake: former Comment: stand by assist with ambulation Patient Tobacco Use Status: Never used Tobacco Smoked in Last 30 Days: No Second Hand Smoke Exposure: No Use of substances other than those prescribed or required for medical reasons: No Advance Directives: Yes Advance Directives on File: Yes Advance Directives Date on File: 06/15/22 service: No Current occupational status: retired Physical Exam Vital Signs: Vital Signs: Last Vital Signs Temp 98.5 F 01/13/24 00:01 Pulse 75 01/13/24 00:01 Resp 16 01/13/24 00:01 BP 120/49 L 01/13/24 00:01 Pulse Ox 100 01/13/24 00:01 O2 Del Method Room Air 01/13/24 00:01 O2 Flow Rate 2 01/12/24 19:12 Oxygen Flow Rate 2 01/12/24 17:24 BMI result Body Mass Index 23.0 Const: General: cooperative, healthy appearing and no acute distress Nutritional Appearance: well nourished Orientation/consciousness: oriented to person, oriented to place and oriented to time Chest: Chest palpation & inspection: normal inspection of the chest Resp: Effort & Inspection: normal respiratory effort and able to speak in complete sentences Cardio: Jugular venous distension: no JVD Rate: regular rate Rhythm: regular rhythm GI: Inspection: Yes normal to inspection Auscultation: normal bowel sounds Neuro: General: oriented to person, oriented to place and oriented to time Cognition (Neuro): normal cognition Extrem: Other: RLE wrapped with dressing Psych: Appearance: grossly normal Mental Status: mental status grossly normal Speech and movement: Normal speech and movement present Affect: normal affect Attitude: cooperative Thought process: Normal thought process present Thought content: Normal thought content present Insight: Good insight present (Psych) Judgement: Good judgement present (Psych) Medications Administered Discontinued Medications Generic Name Dose Route Start Last Admin Trade Name Freq PRN Reason Stop Dose Admin Doxycycline Monohydrate 100 mg 01/12/24 20:34 01/12/24 21:05 Doxycycline Monohydrate 100 Mg Capsule PO 01/12/24 20:35 100 mg ONCE ONE Administration Oxycodone HCl 5 mg 01/12/24 20:34 01/12/24 21:05 Oxycodone Hcl Immed Release 5 Mg Tablet PO 01/12/24 20:35 5 mg ONCE ONE Administration Warfarin Sodium 1.5 mg 01/12/24 20:45 01/12/24 21:38 Warfarin Sodium 0.5 Mg Halftab PO 01/12/24 20:46 1.5 mg ONCE@1800 ONE Administration Medical Decision Making Medical Decision Making [facility] Narrative: 78 y/o female with PMHx COPD, KANDY on biPAP and home O2, pulmonary HTN, antiphospholipid antibody syndrome with hx of PE/DVT on chronic warfarin [goal INR 1.5-2 rather than 2.5-3 due to platelet dysfunction per her vp director of finance at [facility]], stage IIIA lung CA s/p LULobectomy and neoadjunvant chemoradiation, radiation pulmonary fibrosis, nonobstructive CAD s/p NSTEMI, HFpEF, hypogammoglobulinemia, hypothyroidism who presents to the ER via EMS from [facility] for evaluation of 10 upper chest pain, bilateral shoulder pain (R>L) that started at 8-9am today when she was laying down. Patient's primary complaint is pain in the right shoulder which seems to be acute on chronic. Her EKG today does not show any new ischemic changes which is reassuring. She certainly has risk for PE as she was recently off of her Coumadin. Lab work today showed stable anemia, mild, chronic leukocytosis. Her INR is therapeutic today at 2.0. Considered CT scan of her chest to assess for possible pulmonary embolism however management would not change if this was positive. She is currently anticoagulated and therapeutic. He is hemodynamically stable. Initial troponin was 13, repeat troponin flat at 15. Doubt ACS. She felt better after a dose of oxycodone. At this time low clinical suspicion for acute cardiac chest pain. Her workup was reassuring. Comfortable with discharge back to [facility] for ongoing therapy, ppx abx, wound care for her leg. return precautions discussed. stable for d/c. Differential Diagnosis Differential Diagnoses: The differential diagnosis associated with the presentation includes Recurrent pulmonary embolism, ACS, costochondritis, anxiety, shoulder arthritis, Admission/Observation Consideration of admission/observation: Escalation of care including admission/observation considered Lab Data [facility] Lab Attestation statement: I reviewed the patient's lab results. 01/12/24 18:16 01/12/24 18:16 Labs: Lab Results 01/12/24 01/12/24 Range/Units 18:16 21:10 WBC 13.6 H (4.8-10.8) X10*3/uL RBC 2.93 L (4.20-5.50) X10*6/uL Hgb 9.8 L (12.0-16.0) g/dl Hct 29.3 L (37.0-47.0) % MCV 100.0 H (80.0-98.0) fL MCH 33.4 H (27.0-33.0) pg MCHC 33.4 (31.0-35.0) g/dl RDW 13.6 (11.0-16.0) % Plt Count 222 (160-400) X10*3/uL MPV 11.2 (9.4-12.3) fL Immature Gran % (Auto) 1.3 H (0.0-0.4) % Neut % (Auto) 79.9 H (45-73) % Lymph % (Auto) 7.5 L (20-40) % Arroyo % (Auto) 10.5 (2-11) % Eos % (Auto) 0.4 (0-4) % Baso % (Auto) 0.4 (0-2) % Lymph # (Auto) 1.0 L (1.2-4.9) X10*3/uL [place]royo # (Auto) 1.4 H (0.1-1.2) X10*3/uL Eos # (Auto) 0.1 (0.0-0.4) X10*3/uL Baso # (Auto) 0.1 (0.0-0.2) X10*3/uL Abs Immat Gran (auto) 0.18 H (0.00-0.03) X10*3/uL Absolute Neuts (auto) 10.8 H (2.0-8.3) x10*3/uL Absolute Nucleated RBC 0.020 H (0.0-0.012) X10*3/uL Nucleated RBC % (auto) 0.1 (0.0-0.2) /100WBC Smear Tech's Comments VERIFIED PT 24.7 H (11.1-13.3) SEC INR 2.0 H (0.9-1.1) APTT 47.5 H (26.0-36.8) SEC Sodium 137 (135-145) mmol/L Potassium 3.8 (3.3-5.1) mmol/L Chloride 96 (96-108) mmol/L Carbon Dioxide 30 H (22-29) mmol/L Anion Gap 15 (12-20) BUN 21 H (9-16) mg/dL Creatinine 0.84 (0.5-1.4) mg/dL Estim Creat Clear Calc 44.1 Estimated GFR > 60 Random Glucose 112 (60-115) mg/dL Calcium 10.1 D (8.4-10.2) mg/dL Total Bilirubin 0.6 (0.0-1.0) mg/dL AST 27 (5-31) U/L ALT 17 (0-31) U/L Alkaline Phosphatase 57 (39-117) U/L Troponin I High Sens 13.2 16.5 (<3.5-17.0) ng/L Total Protein 6.8 (6.5-8.0) g/dL Albumin 3.6 (3.5-5.0) g/dL Independent Interpretation I performed an independent interpretation of an: EKG and Plain X-Ray Interpretation: EKG w/ NSR, HR 80 bpm, bifasicular block, no change from prior cxr without acute infiltrate, left costophrenic angle blunted Radiology Impression Discussion of test interpretation with radiology: I have reviewed the radiologist's reading. Radiologist Impression: EXAMINATION: PORTABLE CHEST 1 VIEW CLINICAL INFORMATION: cp. COMPARISON: 12/28/2023. TECHNIQUE: Portable frontal view of the chest was obtained. FINDINGS: Lungs well-expanded. There is persistent blunting left costophrenic angle consistent with a small left pleural effusion with associated left basilar consolidation/atelectasis. This is not significantly changed from the prior study. No overt edema or pneumothorax at this time. Mild loss of volume in the left hemithorax with mild shift of mediastinal structures to the left making evaluation of the cardiac silhouette difficult. No acute bony abnormality XR/XR chest 1V IMPRESSION: Small left effusion with associated left basilar consolidation/atelectasis similar to the 01/05/2024 study. No overt edema. Independent Historian Clinical information obtained from an independent historian. History obtained from or confirmed by: EMS External Record Review External record reviewed: Inpatient record, Office record, Outpatient record, Prior outpatient labs and Prior outpatient radiology Prescription Management I considered prescription management with: Pain Medication Chronic Conditions Patient?s care impacted by: Other (COPD, antiphospholipid syndrome, PE, DVT) Scores Heart Score History: -0- slightly suspicious ECG: -0- normal Age: -2- > or = 65 Risk factory: -1- 1 or 2 risk factors Troponin: -0- < or = normal limit Score: 3 Risk: 1.7% Critical Care Time Critical Care Time Critical Care Time: No Discharge Plan Discharge Clinical Impression: Atypical chest pain, Chronic pain in right shoulder Patient Disposition: er [facility] Transfer Details: Elian Whaley Instructions: Chest Pain (ED), Shoulder Pain (ED) Additional Instructions: Your EKG today was unchanged from prior. Your cardiac enzyme was reassuring. Your symptoms seem to be more chronic in nature and less likely to be indicative of acute cardiac event. Recommend continuing your Coumadin at home, with close monitoring of your INR. Follow-up with your providers and wound care. If you develop new or worsening symptoms call 911 or come back to the ER for further evaluation. Prescriptions: No Action meclizine 25 mg tablet 25 mg PO TID PRN (Reason: dizziness) 14 Days Qty: 42 0RF albuterol sulfate 2.5 mg /3 mL (0.083 %) solution for nebulization 2.5 mg inhalation Q6H PRN (Reason: shortness of breath or wheezing) 30 Days Qty: 180 11RF Advair HFA 230-21 mcg/actuation HFA aerosol inhaler 2 puff inhalation BID 90 Days Qty: 36 4RF potassium chloride 20 mEq packet 20 meq PO DAILY Qty: 50 3RF chlorhexidine gluconate 0.12 % mouthwash 15 ml buccal BID 14 Days Qty: 420 1RF levothyroxine [Synthroid] 25 mcg tablet 25 mcg PO MOTUWETHFR@0600 furosemide 40 mg tablet 80 mg PO DAILY nystatin 100,000 unit/gram powder 1 appl topical TID diazepam 5 mg tablet 2.5 - 5 mg PO QID PRN (Reason: anxiety) furosemide 40 mg Tablet 40 mg PO DAILY@1200 warfarin [Jantoven] 2.5 mg Tablet 2.5 mg PO DAILY levothyroxine [Synthroid] 25 mcg Tablet 50 mcg PO SUSA rosuvastatin 10 mg tablet 10 mg PO MOWEFR doxycycline monohydrate 100 mg Capsule 100 mg PO Q12H Qty: 10 0RF enoxaparin 40 mg/0.4 mL Syringe 40 mg subcut Q24H 3 Days Qty: 1.2 0RF oxycodone 5 mg Tablet 5 mg PO Q4-6H PRN (Reason: Pain, Moderate(Pain Scale 4-6)) Qty: 20 0RF Rx Instructions: Partial Fill upon patient request. ferrous sulfate 324 mg (65 mg iron) Tablet,Delayed Release (Dr/Ec) 324 mg PO DAILY Qty: 90 0RF (DME) nebulizers Misc See Rx Instructions .Route Rx Instructions: As directed (DME) CPAP Machine/Device Device See Rx Instructions .Route Rx Instructions: As directed (DME) Oxygen Home Use Kit See Rx Instructions .Route Rx Instructions: As directed epinephrine 0.3 mg/0.3 mL auto-injector 0.3 mg IM USEASDIRECTD PRN (Reason: Allergic Reaction) metoprolol succinate [Toprol XL] 50 mg tablet extended release 24 hr 50 mg PO BID Qty: 120 3RF prednisone 2.5 mg tablet 2.5 mg PO Q48H levocetirizine 5 mg tablet 5 mg PO DAILY 90 Days Qty: 90 3RF trazodone 50 mg tablet 100 mg PO BEDTIME Qty: 180 3RF montelukast 10 mg tablet 10 mg PO DAILY Qty: 90 3RF Interventions: ED Discharge Assessment Last Done: 01/13/24 00:01 Discharge Date/Time: 01/13/24 00:02 Print Language: Telugu
[2024-01-12 18:23] LABS: Basophils Absolute Auto 0.1 X10*3/uL (0.0-0.2); Basophils Percent Auto 0.4 % (0-2); Eosinophils Absolute Auto 0.1 X10*3/uL (0.0-0.4); Eosinophils Percent Auto 0.4 % (0-4); Hematocrit 29.3 % (37.0-47.0); Hemoglobin 9.8 g/dl (12.0-16.0); Imm Gran Abs Auto 0.18 X10*3/uL (0.00-0.03); Imm Gran Pct Auto 1.3 % (0.0-0.4); Lymphocytes Percent Auto 7.5 % (20-40); MANUAL DIFF FLAG SCAN; Mean Corpuscular HGB Conc 33.4 g/dl (31.0-35.0); Mean Corpuscular Hemoglobin 33.4 pg (27.0-33.0); Mean Platelet Volume 11.2 fL (9.4-12.3); Monocytes Absolute Auto 1.4 X10*3/uL (0.1-1.2); Monocytes Percent Auto 10.5 % (2-11); NRBC Pct Auto 0.1 /100WBC (0.0-0.2); Neutrophils Absolute Auto 10.8 x10*3/uL (2.0-8.3); Neutrophils Percent Auto 79.9 % (45-73); PLT CLUMP 1; Red Blood Count 2.93 X10*6/uL (4.20-5.50); Red Cell Distribution Width 13.6 % (11.0-16.0); SCAN SMEAR FLAG 1
[2024-01-12 18:29] LABS: Prothrombin Time 24.7 SEC (11.1-13.3)
[2024-01-12 18:31] LABS: Partial Thromboplastin Time 47.5 SEC (26.0-36.8)
[2024-01-12 18:48] LABS: Platelet Count 222 X10*3/uL (160-400); White Blood Count 13.6 X10*3/uL (4.8-10.8)
[2024-01-12 18:49] LABS: SLIDE REVIEW VERIFIED
--- OUTSIDE RECORDS SUMMARY | 2024-01-12 18:50 | XMS_ITS | Continuity of Care Document ---
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(Discharge Diagnosis) - 12/28/23 Chronic respiratory failure(Discharge Diagnosis) - 12/28/23 Antiphospholipid syndrome(Discharge Diagnosis) - 12/28/23 Bilateral lower extremity pain(Discharge Diagnosis) - 12/28/23 Attending Physician: Caitlyn Bowie MD Allergies, Adverse [...] Active Mold Active Shrimp Active Avocado Active busPIRone Feeling of throat ti ghtness Headache Dizziness Active 1Allergy testing doen 09/26 was negative [...] Date: 12/20/23 Stop Date: 01/03/26 Status: Ordered diphenhydrAMINE 25 mg oral capsule 2 capsule = 50 mg, By Mouth, Once, TAKE 2 HOURS PRIOR TO SCAN, # 2 capsule, 0 Refills, Soft Stop, 12/28/23 11:37:00 EDT, Capsule, [facility], Partial fill upon patient request if the prescription is for a schedule II opioid drug., 158, c... Start Date: 12/28/23 Status: Ordered docusate sodium 100 mg oral [...] BREAKFAST Start Date: 04/22/22 Status: Ordered Furosemide See Instructions, 80mg qam, 40mg afternoon, 0 Refills, Maintenance, 09/14/22 14:12:00 EST, Partial [...] EST, ; Start Date: 05/16/22 Status: Ordered Medrol 32 mg oral tablet See Instructions, take one tablet 12 hours before scan then take another dose 2 hours before scan, # 2 tablet, 0 Refills, Acute 01/29/24 11:32:00 EDT, 12/28/23 11:32:00 EDT, [facility], Partial fill upon patient request if the prescripti... Start Date: 12/28/23 Stop Date: 01/29/24 Status: Ordered Metoprolol Succinate ER 25 mg oral tablet, extended release 3 tablets, By Mouth, 2 times a day, TAKE ONE TABLET BY MOUTH TWICE A DAY WITH BREAKFAST AND DINNER,# 180 tablet, 0 Refills, Maintenance, 03/24/23 11:27:00 EDT, ER Tablet, Partial fill upon patient request if the prescription is for a schedule II opio... Start Date: 03/24/23 Stop Date: 04/23/23 Status: Ordered nystatin topical 325504 u/gm powder 1 application, Topically, 3 times a day, # 60 Gm, 11 Refills, Maintenance, 12/29/23 15:51:00 EDT, Powder, [facility], Partial fill upon patient request if the prescription is for a schedule II opioid drug., 1 application Topically 3 time... 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 Discharge Diagnosis 12/28/23 Chronic respiratory failure Discharge Diagnosis 12/28/23 Antiphospholipid syndrome Discharge Diagnosis 12/28/23 Bilateral lower extremity pain Discharge Diagnosis 12/28/23 Vital Signs Most recent to oldest [Reference Range]: 1 Height 158 cm (12/28/23 11:04 AM) Weight 59.8 kg (12/28/23 11:04 AM) Oxygen Saturation [94-100 %] 96 % (12/28/23 11:04 AM) Pulse Rate [55-90 bpm] 82 bpm (12/28/23 11:04 AM) Body Mass Index [18.5-24.99 kg/m2] 23.95 kg/m2 (12/28/23 11:04 AM) Blood Pressure [90-138/55-84 mm Hg] 122/ 64mm Hg (12/28/23 11:04 AM) Liters per Minute 2 L/min (12/28/23 11:04 AM) Mode of Delivery (Oxygen) Nasal cannula (12/28/23 11:04 AM) Blood pressure sites Arm, left (12/28/23 11:04 AM) Social History Social History Type Response Smoking Status Never smoker; Tobacc o user in household: No entered on: 04/05/17 Sex Note * Becky Álvarez: PERFORM Event Display: Patient Education/Instruction Authored Date: Ambulatory Adult Visit Summary [facility] [address] [place] [address] Name: CINDA MOREINO : 1945?? Visit: 12/28/2023 10:48?? Ambulatory Visit Instructions ?? Your Care Team Primary Care Provider Caitlyn Bowie MD? This Visit Provider Caitlyn Bowie MD Your Diagnosis Fatigue Easy bruising CHF (congestive heart failure) Vitals Signs Pulse Rate: 82 bpm Height: 158 cm Systolic Blood Pressure: 122 mm Hg Weight: 59.8 kg Diastolic Blood Pressure: 64 mm Hg Body Mass Index: 23.95 kg/m2 Oxygen Saturation: 96 % Body surface area: 1.62 What to do next Scheduled Follow-Up Appointments 2023 8:00 AM EDT ?? With: Donya PHD, Fei Where: [facility] [address] [place] [address]- Status: Pending Follow-Up Appointments Follow Up with??Caitlyn Bowie MD When:??03/28/2024 11:03 AM EDT Where: [address] [address]- Follow Up with??Rosetta Whitten MD Where: [address] [facility] [place] [address]- Future Orders Thiamine Level (Vitamin B1 Level) - Routine, Once, 12/28/23 11:43:00 EDT, Order for Today, [facility],Blood?? Vitamin C Level - Routine, Once, 12/28/23 11:43:00 EDT, Order for Today, [facility], Blood?? Basic Metabolic Panel - Routine, Once, 12/28/23 11:44:00 EDT, Order for Today, [facility], Blood?? Medications The list below reflects the information in our records and provided by you today along with any changes made during this visit. Please continue your medications until treatment is completed or stopped by your provider. If this is different from the information you have or there are other questions,please contact the prescribing provider. What How Much When Why Instructions New DiphenhydrAMINE (diphenhydrAMINE 25 mg oral capsule) 2 capsule Oral Once TAKE 2 HOURS PRIOR TO SCAN ?? Pickup at [facility] New MethylPREDNISolone (Medrol 32 mg oral tablet) See instructions take one tablet 12 hours before scan then take another dose 2 hours before scan ?? Pickup at [facility] Changed Furosemide See instructions 80mg qam, 40mg afternoon ?? Unchanged Albuterol (albuterol 0.083% inhalation solution) 3 [...] NEEDED FOR ANXIETY AND SLEEP ?? Unchanged Diazepam (diazepam 5 mg oral tablet) [...] 2 puff(s) Inhalation Twice a day Unchanged Gabapentin (gabapentin 100 [...] as directed by the anticoagulation clinic ?? Pharmacy Information [facility]: [address], [place] [id number] [phone] Test Performed Below is a partial list of the tests performed during your Visit. You may have had other tests and procedures not included in this list. Please discuss all test results with your provider. Basic Metabolic Panel?-- Results Pending -- Vitamin B1 Level?-- Results Pending -- Vitamin C Level?-- Results Pending -- You will be contacted within 72 hours with your results. Medications and Immunizations Administered Medications Given During [...] call [facility] [employer] Link at [phone] or [phone] ([phone]) or log in to [email or web address] for referrals to smoking cessation programs. ?? The National Suicide Prevention Hotline is available 30/01 if you or someone you know needs to find a reason to keep living. By calling 4-638-421-TSAT Group (4013) you'll be connected to a skilled, trained counselor at a crisis center in your area. [facility] [employer] Portal You can view and manage your care through the patient portal or by using a health care alonso of your choosing. [employer] is a website that allows you to securely view your medical information including your hospital discharge summary, office visit summaries, medications and follow-up visits. You can also request appointments, renew medications, and request access to your medical information using a health care alonso of your choosing, or just ask a question. You can enroll at [email or web address] or register during your next office visit. [facility], in keeping with [facility] guidance, no longer requires face masks [...] primary care provider, you may find a [facility] provider by calling [facility] Link at [phone]. Patient Care team information Care Team Personnel Name: Val Wynne Position: [facility] Onco RN Member Role: Primary Care Nurse Name: Shilpi Mattson Position: Reference Physician Member Role: Primary Care Nurse Address: Address: [address] [place] [address]- Name: Toyin Doherty RN Position: [facility] RN Member Role: Primary Care Nurse Name: Eben Henrandez NP Position: [facility] Associate Professional Member Role: Lifetime Consulting Provider Address: Address: [address] [place] [address]- Name: Alejandrina Turner RN Position: [facility] RN Member Role: Primary Care Nurse Name: Zoraida Felix RN Position: [facility] ED RN W/OE and Tasks Member Role: Primary Care Nurse Name: Jaye Harley Position: [facility] Dressmaking Teacher Member Role: Bell Neck Hammerer Name: Daphne Hooker RN Position: [facility] RN Member Role: Primary Care Nurse Name: Caitlyn Bowie MD Position: [facility] Physician - Primary Care Member Role: PCP Address: Address: [address] [place] [address]- Name: Kiki Abdi RN Position: [facility] RN Member Role: Primary Care Nurse Name: Marry Reza Position: [facility] RN Member Role: Primary Care Nurse Name: Veronica Hurst [place] Position: [facility] JAY Office Staff Member Role: Lifetime Consulting Physician Name: Maddie Herrera RN Position: [facility] AMB Nurse Member Role: Primary Care Nurse Name: Yudith Herrera RN Position: [facility] Onco RN Member Role: Primary Care Nurse Name: Raegan Baptiste RN Position: [facility] RN Member Role: Primary Care Nurse Name: She Pool RN Position: [facility] RN Member Role: Primary Care Nurse Name: Kaila Latham RN Position: [facility] RN Member Role: Primary Care Nurse Name: Julio C Bahena RN Position: [facility] RN Member Role: Primary Care Nurse Name: Nasima Heredia RN Position: [facility] RN Member Role: Primary Care Nurse Name: Daphne Barton RN Position: [facility] RN Member Role: Primary Care Nurse Name: Katherine Long RN Position: [facility] RN Member Role: Primary Care Nurse Name: Norma Serrano RN Position: [facility] RN Member Role: Primary Care Nurse Name: Seven Kelly RN Position: [facility] ED RN W/OE and Tasks Member Role: Primary Care Nurse Name: Fani Perez RN Position: [facility] RN Member Role: Primary Care Nurse Name: Hattie Brewster RN Position: [facility] RN Member Role: Primary Care Nurse Name: Kelly Hernandez RN Position: [facility] RN Member Role: Primary Care Nurse Name: Pallavi Wylie LPN Position: [facility] RN Member Role: Primary Care Nurse Name: Parris Zuluaga RN Position: [facility] RN Member Role: Primary Care Nurse Care Team Related Persons Name: MARK ZENAIDA Address: [place], [place] Name: TIA RIVERS Address: [place] [address] Name: JOHANN RETANA Address: [place] [address]
[2024-01-12 18:55] LABS: Troponin-I High Sensitivity 13.2 ng/L (<3.5-17.0)
[2024-01-12 18:56] LABS: Alanine Aminotransferase 17 U/L (0-31); Albumin Level 3.6 g/dL (3.5-5.0); Alkaline Phosphatase 57 U/L (39-117); Anion Gap 15 (12-20); Aspartate Amino Transferase 27 U/L (5-31); Bilirubin Total 0.6 mg/dL (0.0-1.0); Blood Urea Nitrogen 21 mg/dL (9-16); Calcium 10.1 mg/dL (8.4-10.2); Carbon Dioxide 30 mmol/L (22-29); Chloride 96 mmol/L (96-108); Creatinine Clr Calc Pharmacy 44.1; Estimated Glomerular Filt Rate > 60; Glucose Random 112 mg/dL (60-115); Potassium 3.8 mmol/L (3.3-5.1); Sodium 137 mmol/L (135-145); Total Protein 6.8 g/dL (6.5-8.0)
--- OUTSIDE RECORDS SUMMARY | 2024-01-12 19:06 | XMS_ITS | Continuity of Care Document ---
Author Organization [facility] Address [address] [place] [address]- Care Team Providers Care Transportation Coordinator Name Role Phone Caitlyn Bowie MD Primary Care Physician Encounter [facility] Date(s): 12/08/23 - 01/07/24 [facility] [address] [place], [place] [address] Referring Physician: Marilyn Guzmán Allergies, Adverse Reactions, Alerts Substance Reaction Severity [...] Stop Date: 04/23/23 Status: Ordered nystatin topical 615555 u/gm powder 1 application, Topically, 3 times [...] Care Team Personnel Name: Val Wynne Position: [facility] Onco RN Member Role: Primary Care Nurse Name: Shilpi Mattson Position: Reference Physician Member Role: Primary Care Nurse Address: Address: [address] [place] [address]- [place] Name: oTyin Doherty RN Position: [facility] RN Member Role: Primary Care Nurse Name: Eben Hernandez NP Position: [facility] Associate Professional Member Role: Lifetime Consulting Provider Address: Address: [address] [place] [address]- Name: Alejandrina Turner RN Position: [facility] RN Member Role: Primary Care Nurse Name: Zoraida Felix RN Position: [facility] ED RN W/OE and Tasks Member Role: Primary Care Nurse Name: Jaye Harley Position: [facility] Cross Tie Tram Loader Member Role: Squeegee Operator Name: Daphne Hooker RN Position: [facility] RN Member Role: Primary Care Nurse Name: Caitlyn Bowie MD Position: [facility] Physician - Primary Care Member Role: PCP Address: Address: [address] [place] [address]- Name: Kiki Abdi RN Position: [facility] RN Member Role: Primary Care Nurse Name: Marry Reza Position: [facility] RN Member Role: Primary Care Nurse Name: Veronica Hurst [place] Position: [facility] JAY Office Staff Member Role: Lifetime Consulting Physician Name: Maddie Herrera RN Position: [facility] AMB Nurse Member Role: Primary Care Nurse Name: Yudith Herrera RN Position: [facility] Onco RN Member Role: Primary Care Nurse Name: Raegan Baptiste RN Position: [facility] RN Member Role: Primary Care Nurse Name: She Pool RN Position: [facility] RN Member Role: Primary Care Nurse Name: Kaila Latham RN Position: [facility] RN Member Role: Primary Care Nurse Name: Julio C Bahena RN Position: [facility] RN Member Role: Primary Care Nurse Name: Nasima Heredia RN Position: [facility] RN Member Role: Primary Care Nurse Name: Daphne Barton RN Position: [facility] RN Member Role: Primary Care Nurse Name: Katherine Long RN Position: [facility] RN Member Role: Primary Care Nurse Name: Norma Serrano RN Position: [facility] RN Member Role: Primary Care Nurse Name: Seven Kelly RN Position: [facility] ED RN W/OE and Tasks Member Role: Primary Care Nurse Name: Fani Perez RN Position: [facility] RN Member Role: Primary Care Nurse Name: Hattie Brewster RN Position: [facility] RN Member Role: Primary Care Nurse Name: Kelly Hernandez RN Position: [facility] RN Member Role: Primary Care Nurse Name: Pallavi Wylie LPN Position: [facility] RN Member Role: Primary Care Nurse Name: Parris Zuluaga RN Position: [facility] RN Member Role: Primary Care Nurse Care Team Related Persons Name: ZENAIDA FLORES Address: [place] [address] Name: TIA RIVERS Address: [place] [address] Name: JOHANN RETANA Address: [place] [address]
[2024-01-12 19:12] VITALS: BP 100/43; PULSE 76; RESP 18; TEMP 37.2; O2SAT 100
--- NOTE | 2024-01-12 19:15 | PC.NURSE ---
this rn assumed care of pt, pt resting in stretcher, a&ox4, respirations even and unlabored. pt denies chest pain at this time. pt normal sinus on tele 75-76bpm. pt on 2L nasal cannula baseline sating 100%.
--- OUTSIDE RECORDS SUMMARY | 2024-01-12 19:29 | XMS_ITS | Patient Health Record ---
Author Organization [facility] Address [address] [place] [id number] Care Team Providers Care Apartment Maintenance Technician Name Role Phone AzebShruti esquivelberly Primary Care Provider Cristian Fountain Unavailable [phone] ALLERGIES Allergen (clinical drug ingredient) Drug/Non Drug [...] confirmed Irritable bowel syndrome characterized by constipation (684377034) Problem Diverticulitis (K57.92) Active confirmed Diverticulitis (614675112) Problem GERD (gastroesophageal reflux disease) (K21.9) Active confirmed Gastroesophagea l reflux disease (326090768) PLAN OF TREATMENT No Information Insurance Providers Payer Name Payer Address Payer Phone Subscriber Number Group Number Insured Name Patient Relationship to Insured Coverage Start Date Coverage End Date MEDICARE OF [place] [address] [place] [address] [phone] [id number] SHIRLEY CINDA Self - patient is the insured [employer] ATTN CLAIMS [address] [place] [phone] [id number] DANIEL WATSONE Self - patient is the insured MEDICAL (GENERAL) HISTORY Medical History History ICD Code AR-04/2021-sees Dr. 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 Hogan at [facility] GERD-has had EGD's with Dr. Gomes Pneumomias Hypothyroidism Surgical History Surgery Date(Month/Year) Tonsils and adenoids [facility] Lung cancer-[facility], [facility], Chemo 2008
[2024-01-12] MEDS: oxyCODONE HCl Immed Release 5 MG TABLET PO (21:05)
[2024-01-12] MEDS: Doxycycline Monohydrate 100 MG CAPSULE PO (21:05)
--- NOTE | 2024-01-12 21:09 | PC.NURSE ---
pharmacy to bring up warfarin at this time.
[2024-01-12 21:36] LABS: Troponin-I High Sensitivity 16.5 ng/L (<3.5-17.0)
[2024-01-12] MEDS: Warfarin Sodium 0.5 MG HALFTAB 1.5 MG PO (21:38)
--- NOTE | 2024-01-12 21:49 | PC.NURSE ---
pt medicated per mar, tolerated well with water.
[2024-01-12 23:57] VITALS: BP 120/49; PULSE 75; RESP 16; TEMP 36.9; O2SAT 100
[2024-01-13 00:01] VITALS: BP 120/49; PULSE 75; RESP 16; TEMP 36.9; O2SAT 100
--- NOTE | 2024-01-13 00:01 | PC.NURSE ---
report given to Jovana YOU at [facility].
== END 2024-01-13 00:02 | disposition skilled nursing facility (03) ==
PROVIDERS: Physician Assistant; Emergency Provider Emergency Medicine; PCP Hospitalist
DX: R07.89 Other chest pain (principal); M25.511 Pain in right shoulder; J44.9 Chronic obstructive pulmonary disease, unspecified; Z86.718 Personal history of other venous thrombosis and embolism; Z79.01 Long term (current) use of anticoagulants; Z99.81 Dependence on supplemental oxygen; Z79.02 Long term (current) use of antithrombotics/antiplatelets; Z79.899 Other long term (current) drug therapy
CPT/HCPCS: 36415; 71045; 80053; 84484; 85025; 85610; 85730; 93005; 99285

== ENCOUNTER → 2024-01-12 17:28 | Outpatient (BNV) | payer MEDICARE, SELFPAY | PROVIDERS: Emergency Provider Emergency Medicine; PCP Hospitalist; Visit Provider Internal Medicine | DX: R94.31 Abnormal electrocardiogram [ECG] [EKG] (principal) | CPT/HCPCS: 93010 ==

== ENCOUNTER 2024-01-14 00:44 | Inpatient (IN) | payer MEDICARE, SELFPAY ==
[2024-01-14] VITALS (9 sets, daily range): BP systolic 106–134; BP diastolic 43–96; PULSE 78–97; RESP 15–20; TEMP 36–37.1; O2SAT 96–100; BMI 25.1; BMI 26.1
--- NOTE | ~2024-01-14 | NM_ITS ---
PULMONARY PERFUSION ONLY STUDY: CLINICAL INDICATION: Chest pain. History of left upper lobar lung lobectomy (lung cancer). History of PE. Elevated d-dimer. History of DVT. PROCEDURE: Following the intravenous administration of 1.0 millicuries technetium 99m MAA, images of the chest were obtained in multiple projections using a gamma scintiphotographic camera. COMPARISON: Chest radiograph done on 01/16/2024 and perfusion only lung scan done on 12/06/2022. PERFUSION IMAGES: Asymmetric low lung volume is present within the left hemithorax consistent with history of prior left upper lobar lung lobectomy. Heterogeneous decreased perfusion is noted at the left lung base corresponding to the site of pleuroparenchymal opacity seen on the corresponding chest radiograph done on 01/16/2024. Overall appearance is similar to that of the prior study dated 12/06/2022. NM/NM pul perfusion IMPRESSION: Based on perfusion only modified PIOPED 2 criteria, nondiagnostic for pulmonary thromboembolism.
--- NOTE | ~2024-01-14 | XR_ITS ---
EXAMINATION: XR CHEST 5:12 PM CLINICAL INFORMATION: Chest pain COMPARISON: 01/12/2024 at 6:39 PM TECHNIQUE: AP portable view of the chest was obtained. FINDINGS: The right lung is clear. Small to moderate probably loculated left pleural fluid or thickening and left base atelectasis are stable. The cardiomediastinal silhouette is not well assessed. Volume loss in the left hemithorax is again evident. XR/XR chest 1V IMPRESSION: No significant change since 01/12/2024.
--- NOTE | 2024-01-14 01:51 | MHC.EDTECH ---
Pt stated she took a laxative before bed and needed help to the commode. This tech assisted Pt, who did not have a bowel movement, only urinated. Pt cleaned and assisted back into bed. Pt requested a purewick due to frequently urinating due to taking furosemide, per Pt. This tech did that for Pt. Call ma within reach.
--- NOTE | 2024-01-14 06:42 | ED_ITS ---
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 Patient was initially seen on 01/03 after having a large hematoma to her right lower leg after hitting it on a grocery cart. Dr. Ratliff saw patient and ultimately performed a hematoma evacuation. Patient states that she was awoke by the [facility] staff was told that her leg is cellulitic and needs to be re-evaluated at the hospital. She states that she has not had increased pain or any fevers. She has had no new injury to the leg. No chest pain, shortness breath, abdominal pain, nausea, vomiting or diarrhea. She is currently on doxycycline, which he has been taking without any missed dosages. No other complaints or concerns at this time. MD complaint: leg injury Onset (ago): week(s) Type of Injury: blunt Place: street/outdoors Severity: moderate Relieving factors: immobilization and rest Exacerbating factors: palpation Context: direct blow Other symptoms: none Related Data Home Medications ?Medication ?Instructions ?Recorded ?Confirmed levothyroxine 25 mcg tablet 25 mcg PO MOTUWETHFR@0600 06/14/22 01/14/24 (Synthroid) CPAP (CPAP Machine/Device) 06/30/22 11/20/23 Oxygen Home Use 06/30/22 11/20/23 nebulizers 06/30/22 11/20/23 epinephrine 0.3 mg/0.3 mL 0.3 mg IM USEASDIRECTD PRN 07/14/22 01/14/24 injection, auto-injector Allergic Reaction prednisone 2.5 mg tablet 2.5 mg PO Q48H 08/09/23 01/14/24 diazepam 5 mg tablet 5 mg PO Q8H PRN Anxiety 01/05/24 01/14/24 furosemide 40 mg tablet 40 mg PO DAILY@1200 01/05/24 01/14/24 furosemide 40 mg tablet 80 mg PO DAILY 01/05/24 01/14/24 levothyroxine 25 mcg tablet 50 mcg PO SUSA@0600 01/05/24 01/14/24 (Synthroid) nystatin 100,000 unit/gram topical 1 appl topical BID 01/05/24 01/14/24 powder rosuvastatin 10 mg tablet 10 mg PO MOWEFR 01/05/24 01/14/24 warfarin 2.5 mg tablet (Jantoven) 2.5 mg PO DAILY@1800 01/05/24 01/14/24 collagenase clostridium histo. 250 1 appl topical DAILY 01/14/24 01/14/24 unit/gram topical ointment (Santyl) collagenase clostridium histo. 250 1 appl topical DAILY PRN soiled/no 01/14/24 01/14/24 unit/gram topical ointment (Santyl) longer intact docusate sodium 100 mg capsule 100 mg PO DAILY 01/14/24 01/14/24 ferrous sulfate 325 mg (65 mg 325 mg PO DAILY 01/14/24 01/14/24 iron) tablet meclizine 25 mg tablet 25 mg PO Q8H PRN dizziness 01/14/24 01/14/24 methyl salicylate 15 %-menthol 10 1 appl topical DAILY PRN Pain 01/14/24 01/14/24 % topical cream (Muscle Rub) oxycodone 5 mg tablet 5 mg PO Q4H PRN Pain 01/14/24 01/14/24 Previous Rx's ?Medication ?Instructions ?Recorded albuterol sulfate 2.5 mg/3 mL 2.5 mg (3 mL) inhalation Q6H PRN 09/21/22 (0.083 %) solution for nebulization shortness of breath or wheezing 30 days #180 mL Advair HFA 230 mcg-21 2 puff inhalation BID 90 days #36 03/07/23 mcg/actuation aerosol inhaler grams (fluticasone propion-salmeterol) levocetirizine 5 mg tablet 5 mg PO DAILY 90 days #90 tabs 07/20/23 montelukast 10 mg tablet 10 mg PO DAILY #90 tabs 07/20/23 potassium chloride 20 mEq oral 20 meq PO DAILY #50 ea 07/20/23 packet trazodone 50 mg tablet 100 mg (2 x 50 mg) PO BEDTIME #180 07/20/23 tabs metoprolol succinate 50 mg 50 mg PO BID #120 tabs 08/14/23 tablet,extended release 24 hr (Toprol XL) chlorhexidine gluconate 0.12 % 15 ml buccal BID 14 days #420 mL 01/02/24 mouthwash doxycycline monohydrate 100 mg 100 mg PO Q12H #10 caps 01/09/24 capsule Allergies Allergy/AdvReac Type Severity Reaction Status Date / Time morphine Allergy Severe Itching Verified 01/14/24 01:18 avocado [AVOCADO] Allergy Mild ITCHY Verified 01/14/24 01:18 THROAT, RASH azithromycin [AZITHROMYCIN] Allergy Mild ITCHY Verified 01/14/24 01:18 THROAT, RASH barium iodide [BARIUM IODIDE] Allergy Mild ITCHY Verified 01/14/24 01:18 THROAT, RASH barium sulfate Allergy Mild Itch Verified 01/14/24 01:18 bee pollen [BEE STINGS] Allergy Mild ITCHY Verified 01/14/24 01:18 THROAT, RASH ciprofloxacin [From CIPRO] Allergy Mild ITCHY Verified 01/14/24 01:18 THROAT, RASH clarithromycin [From BIAXIN] Allergy Mild ITCHY Verified 01/14/24 01:18 THROAT, RASH diatrizoate meglumine Allergy Mild ITCHY Verified 01/14/24 01:18 [From GASTROGRAFIN] THROAT, RASH diatrizoate sodium Allergy Mild ITCHY Verified 01/14/24 01:18 [From GASTROGRAFIN] THROAT, RASH diclofenac [From VOLTAREN] Allergy Mild ITCHY Verified 01/14/24 01:18 THROAT, RASH erythromycin base Allergy Mild ITCHY Verified 01/14/24 01:18 [ERYTHROMYCIN BASE] THROAT, RASH gentamicin [GENTAMICIN] Allergy Mild ITCHY Verified 01/14/24 01:18 THROAT, RASH Iodinated Contrast Media Allergy Mild ITCHY Verified 01/14/24 01:18 [IVP DYE] THROAT, RASH levofloxacin [From LEVAQUIN] Allergy Mild ITCHY Verified 01/14/24 01:18 THROAT, RASH metronidazole [From FLAGYL] Allergy Mild ITCHY Verified 01/14/24 01:18 THROAT, RASH moxifloxacin [From AVELOX] Allergy Mild ITCHY Verified 01/14/24 01:18 THROAT, RASH Penicillins [PENICILLINS] Allergy Mild ITCHY Verified 01/14/24 01:18 THROAT, RASH shrimp [SHRIMP] Allergy Mild ITCHY Verified 01/14/24 01:18 THROAT, RASH Sulfa (Sulfonamide Allergy Mild ITCHY Verified 01/14/24 01:18 Antibiotics) THROAT, [SULFA (SULFONAMIDE RASH ANTIBIOTICS)] vancomycin [VANCOMYCIN] Allergy Mild ITCHY Verified 01/14/24 01:18 THROAT, RASH clindamycin AdvReac Intermediate Unknown Verified 01/14/24 01:18 Review of Systems 2 Review of Systems: Yes all other systems are reviewed and are negative Constitutional: Constitutional: Reports as per [facility] Past Medical History Attestation statement: The following information was validated with the patient. Medical History Warfarin anticoagulation Complex sleep apnea syndrome Chronic hypercapnic respiratory failure Leg pain Anemia Tachycardia DVT (deep venous thrombosis) COPD (chronic obstructive pulmonary disease) Compression fracture of body of thoracic vertebra ASD (atrial septal defect) Pleuritic chest pain History of COVID-19 Chronic anticoagulation Hypothyroidism GERD (gastroesophageal reflux disease) Hyperlipidemia Hypertension Factor 5 Leiden mutation, heterozygous History of non-ST elevation myocardial infarction (NSTEMI) Hypoxia Anxiety PTSD (post-traumatic stress disorder) Hemoptysis Dyspnea Tracheobronchitis CLARA positive Diverticulitis Allergic bronchitis (HFpEF) heart failure with preserved ejection fraction Subarachnoid bleed Insomnia Anti-phospholipid antibody syndrome Hypogammaglobulinemia Chronic respiratory failure Arterial insufficiency of lower extremity Complex regional pain syndrome i of right lower limb Post herpetic neuralgia Pulmonary hypertension Pericardial effusion Pulmonary emboli Pleural effusion Radiation fibrosis of lung Pneumonitis Pulmonary nodules KANDY treated with BiPAP Lung cancer Surgical History History of colonoscopy History of lung surgery History of tonsillectomy History of hysterectomy S/P mitral valve clip implantation History of cardiac cath Family History Family History Sister No problems noted. Mother Cardiovascular disease Daughter Tachycardia Other KANDY (obstructive sleep apnea) Social History Social History Household Members: None Housing: House Do you presently have visiting nurse or other home services: No Unable to assess alcohol history related to: Unknown Alcohol intake: former Comment: stand by assist with ambulation Patient Tobacco Use Status: Never used Tobacco Second Hand Smoke Exposure: No Advance Directives Date on File: 06/15/22 service: No Current occupational status: retired Physical Exam 2 Vital Signs: Vital Signs: Last Vital Signs Temp 98.3 F 01/14/24 15:50 Pulse 79 01/14/24 15:50 Resp 15 01/14/24 15:50 BP 111/45 L 01/14/24 15:50 Pulse Ox 98 01/14/24 15:50 O2 Del Method Nasal Cannula 01/14/24 15:50 O2 Flow Rate 2 01/14/24 15:50 Oxygen Flow Rate 2 01/14/24 01:16 BMI result Body Mass Index 25.1 Const: General: cooperative, comfortable and no acute distress O rientation/consciousness: patient oriented x3 Limitations: no limitations HEENT: Head: Yes normal to inspection, Yes normocephalic and Yes atraumatic Ears: hearing grossly normal bilaterally General nose exam: Normal external nose present Face and sinus: Yes normal facial exam Mouth: Normal oral and palatal mucosa present, oropharynx normal and moist mucous membranes Throat: Yes posterior oropharynx normal Eyes: General: appearance normal, both eyes and all related structures E yelids: Yes eyelids normal Conjunctivae: conjunctivae normal Sclerae: s clerae normal Pupils: Equal, round and reactive pupils present EOM: EOMs intact bilaterally Neck: Neck: Yes normal visual inspection, Yes full ROM and Yes no lymphadenopathy Lymphatic: no lymphadenopathy noted Chest: Chest palpation & inspection: normal inspection of the chest Resp: Effort & Inspection: normal respiratory effort and able to speak in complete sentences Auscultation: clear to auscultation bilaterally, no crackles, no rales, no rhonchi and no wheezes Cardio: Rate: regular rate Rhythm: regular rhythm Heart sounds: S1 normal heart sound present and S2 normal heart sound present GI: Inspection: Yes normal to inspection Skin: General skin exam: no rashes or lesions noted Trauma: no lacerations or abrasions Wounds: no wounds Neuro: General: patient oriented x3 and moves all extremities Cranial nerves: Yes Equal, round and reactive pupils present Extrem: Other: Right lower leg, lateral aspect there is a large 25cm x 8cm open wound, with black necrotic skin and moderate hematoma noted, mild erythema and warmth to the lower extremity, mild tenderness palpation, DP pulse felt. Able to plantar and dorsiflex the right ankle without difficulty. General: Yes normal to inspection Right upper extremity: normal to inspection Left upper extremity: normal to inspection Left lower extremity: normal to inspection Course Reevaluation(s) Reevaluation #1: Discussed case with Dr. Szymanski, who will see her in the ER for debridement and anticipate on transfer back to [facility]. Time: 07:19 Reevaluation #2: Labs returned, patient has slight leukocytosis at 11, macrocytic anemia with an H&H of 10/30.2. Chemistry revealing a potassium of 3.1, chloride 35, carbon dioxide 33, BUN 22, calcium 10.4. She appears comfortable. Given hypokalemia, will order 1 time dose of potassium chloride. Time: 08:32 Reevaluation #3: Dr. Mar had seen patient at bedside and performed, recommending hospital admission through medicine for cellulitis, and wound care management. Transfer of care initiated to the hospitalist team Time: 09:50 Medications Administered Generic Name Dose Route Start Last Admin Trade Name Freq PRN Reason Stop Dose Admin Doxycycline Hyclate 100 mg/ 250 mls @ 166.67 mls/hr 01/14/24 12:00 01/14/24 13:47 Sodium Chloride IV 166.67 mls/hr Q12H MATHEW Administration Prednisone 2.5 mg 01/14/24 12:45 01/14/24 14:59 Prednisone 2.5 Mg Tablet PO 2.5 mg Q48H MATHEW Administration Discontinued Medications Generic Name Dose Route Start Last Admin Trade Name Freq PRN Reason Stop Dose Admin Oxycodone HCl 5 mg 01/14/24 09:12 01/14/24 09:20 Oxycodone Hcl Immed Release 5 Mg Tablet PO 01/14/24 09:13 5 mg ONCE ONE Administration Potassium Chloride 40 meq 01/14/24 11:00 01/14/24 11:10 Potassium Chloride Er 20 Meq Tab.Er.Prt PO 01/14/24 11:01 40 meq ONCE ONE Administration Medical Decision Making Medical Decision Making [facility] Narrative: 78 y/o female with PMHx COPD, KANDY on biPAP and home O2, pulmonary HTN, antiphospholipid antibody syndrome with hx of PE/DVT on chronic warfarin [goal INR 1.5-2 rather than 2.5-3 due to platelet dysfunction 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 On arrival, vital signs within normal limits. She is nontoxic appearing, and she is afebrile. She is large right lower extremity bruising, with large wound, with mild erythema and warmth surrounding the wound. Patient was evaluated by my attending, Dr. Jung, he recommends basic labs into consult Dr. Szymanski for possible debridement. Plan: Labs, Surgery consult Differential Diagnosis Differential Diagnoses: The differential diagnosis associated with the presentation includes Cellulitis, wound dehiscence, hematoma, compartment syndrome Admission/Observation Consideration of admission/observation: Escalation of care including admission/observation considered Patient requiring hospital admission secondary to wound, cellulitis Consult Healthcare Provider Management of the patient was discussed with: Hospitalist and Vat Overhauler Dr. Heena Szymanski - surgery Lab Data [facility] Lab Attestation statement: I reviewed the patient's lab results. Slight leukocytosis at 11, with left shift, slight hypokalemia 3.1, total protein, 6.4, albumin 3.3. 01/14/24 07:53 01/14/24 07:54 Labs: Lab Results 01/14/24 01/14/24 Range/Units 07:53 07:54 WBC 11.0 H (4.8-10.8) X10*3/uL RBC 3.02 L (4.20-5.50) X10*6/uL Hgb 10.0 L (12.0-16.0) g/dl Hct 30.2 L (37.0-47.0) % MCV 100.0 H (80.0-98.0) fL MCH 33.1 H (27.0-33.0) pg MCHC 33.1 (31.0-35.0) g/dl RDW 13.5 (11.0-16.0) % Plt Count 279 D (160-400) X10*3/uL MPV 10.8 (9.4-12.3) fL Immature Gran % (Auto) 1.3 H (0.0-0.4) % Neut % (Auto) 73.4 H (45-73) % Lymph % (Auto) 9.7 L (20-40) % Liberty % (Auto) 13.1 H (2-11) % Eos % (Auto) 1.8 (0-4) % Baso % (Auto) 0.7 (0-2) % Lymph # (Auto) 1.1 L (1.2-4.9) X10*3/uL Liberty # (Auto) 1.4 H (0.1-1.2) X10*3/uL Eos # (Auto) 0.2 (0.0-0.4) X10*3/uL Baso # (Auto) 0.1 (0.0-0.2) X10*3/uL Abs Immat Gran (auto) 0.14 H (0.00-0.03) X10*3/uL Absolute Neuts (auto) 8.1 (2.0-8.3) x10*3/uL Absolute Nucleated RBC 0.000 (0.0-0.012) X10*3/uL Nucleated RBC % (auto) 0.0 (0.0-0.2) /100WBC PT 25.9 H (11.1-13.3) SEC INR 2.1 H (0.9-1.1) APTT 44.3 H (26.0-36.8) SEC Sodium 137 (135-145) mmol/L Potassium 3.1 L (3.3-5.1) mmol/L Chloride 95 L (96-108) mmol/L Carbon Dioxide 33 H (22-29) mmol/L Anion Gap 12 (12-20) BUN 22 H (9-16) mg/dL Creatinine 0.78 (0.5-1.4) mg/dL Estim Creat Clear Calc 49.9 Estimated GFR > 60 Random Glucose 97 (60-115) mg/dL Calcium 10.4 H (8.4-10.2) mg/dL Total Bilirubin 0.7 (0.0-1.0) mg/dL Direct Bilirubin 0.3 (0.0-0.5) mg/dL AST 18 (5-31) U/L ALT 14 (0-31) U/L Alkaline Phosphatase 57 (39-117) U/L Total Protein 6.4 L (6.5-8.0) g/dL Albumin 3.3 L (3.5-5.0) g/dL Radiology Impression Discussion of test interpretation with radiology: I have reviewed the radiologist's reading. External Record Review External record reviewed: Inpatient record, Office record, Outpatient record, Prior outpatient labs, Prior outpatient radiology, Primary care record and Outside ED record Discharge Plan Discharge Clinical Impression: Hematoma, Cellulitis of leg, right Leg wound, right Qualifiers: Encounter type: subsequent encounter Qualified Code(s): S81.801D - Unspecified open wound, right lower leg, subsequent encounter Patient Disposition: Admitted As Inpatient Interventions: Admission Worksheet (ED) Last Done: 01/14/24 15:03 Discharge Date/Time: 01/14/24 17:04
[2024-01-14 07:59] LABS: MANUAL DIFF FLAG NO
[2024-01-14 08:07] LABS: INTERNATIONAL NORM RATIO 2.1 (0.9-1.1); Prothrombin Time 25.9 SEC (11.1-13.3)
[2024-01-14 08:09] LABS: Partial Thromboplastin Time 44.3 SEC (26.0-36.8)
[2024-01-14 08:10] LABS: Basophils Absolute Auto 0.1 X10*3/uL (0.0-0.2); Basophils Percent Auto 0.7 % (0-2); Eosinophils Absolute Auto 0.2 X10*3/uL (0.0-0.4); Eosinophils Percent Auto 1.8 % (0-4); Hematocrit 30.2 % (37.0-47.0); Imm Gran Abs Auto 0.14 X10*3/uL (0.00-0.03); Imm Gran Pct Auto 1.3 % (0.0-0.4); Lymphocytes Absolute Auto 1.1 X10*3/uL (1.2-4.9); Lymphocytes Percent Auto 9.7 % (20-40); Mean Corpuscular HGB Conc 33.1 g/dl (31.0-35.0); Mean Corpuscular Hemoglobin 33.1 pg (27.0-33.0); Mean Platelet Volume 10.8 fL (9.4-12.3); Monocytes Absolute Auto 1.4 X10*3/uL (0.1-1.2); Monocytes Percent Auto 13.1 % (2-11); Neutrophils Absolute Auto 8.1 x10*3/uL (2.0-8.3); Neutrophils Percent Auto 73.4 % (45-73); Platelet Count 279 X10*3/uL (160-400); Red Blood Count 3.02 X10*6/uL (4.20-5.50); Red Cell Distribution Width 13.5 % (11.0-16.0)
[2024-01-14 08:13] LABS: Alanine Aminotransferase 14 U/L (0-31); Albumin Level 3.3 g/dL (3.5-5.0); Alkaline Phosphatase 57 U/L (39-117); Anion Gap 12 (12-20); Aspartate Amino Transferase 18 U/L (5-31); Bilirubin Direct 0.3 mg/dL (0.0-0.5); Bilirubin Total 0.7 mg/dL (0.0-1.0); Blood Urea Nitrogen 22 mg/dL (9-16); Calcium 10.4 mg/dL (8.4-10.2); Carbon Dioxide 33 mmol/L (22-29); Chloride 95 mmol/L (96-108); Creatinine Clr Calc Pharmacy 49.9; Estimated Glomerular Filt Rate > 60; Glucose Random 97 mg/dL (60-115); Potassium 3.1 mmol/L (3.3-5.1); Sodium 137 mmol/L (135-145); Total Protein 6.4 g/dL (6.5-8.0)
[2024-01-14] MEDS: oxyCODONE HCl Immed Release 5 MG TABLET PO ×2 (09:20→18:44)
[2024-01-14] MEDS: Potassium Chloride ER 20 MEQ TAB.ER.PRT 40 MEQ PO (11:10)
--- NOTE | 2024-01-14 12:01 | P.HPHOSP_ITS ---
History of Present Illness Date of Service: 01/14/24 Chief Complaint: rle erythema 78F PMH CAD s/p NSTEMI, HFpEF, hx of subarachnoid hemorrhage, chronic hypoxic and hypercapneic respiratory failure due to COPD, pulmonary hypertension, on 2L supplemental home O2 prn, KANDY on BiPAP at night, hx of non-small cell lung cancer s/p chemo, radiation, and left upper lobe lobectomy, antiphospholipid antibody syndrome, hx of DVT/PE on Coumadin, and anxiety. She was recently discharged from [facility] after hospitalization from 01/04/24 to 01/09/24 for traumatic hematoma of the right lower extremity underwent evacuation by vascular surgery given prophylactic doxycycline, restarted on Coumadin, discharged to halfway facility. On day prior to presentation patient started to notice worsening erythema at wound site was concerned about infection so was transferred to ED in ED was seen by General surgery performed bedside debridement. Patient denies any fevers or chills or increased pain to site. Review of Systems 2 Review of Systems: Yes all other systems are reviewed and are negative [facility] Medical History Warfarin anticoagulation Complex sleep apnea syndrome Chronic hypercapnic respiratory failure Leg pain Anemia Tachycardia DVT (deep venous thrombosis) COPD (chronic obstructive pulmonary disease) Compression fracture of body of thoracic vertebra ASD (atrial septal defect) Pleuritic chest pain History of COVID-19 Chronic anticoagulation Hypothyroidism GERD (gastroesophageal reflux disease) Hyperlipidemia Hypertension Factor 5 Leiden mutation, heterozygous History of non-ST elevation myocardial infarction (NSTEMI) Hypoxia Anxiety PTSD (post-traumatic stress disorder) Hemoptysis Dyspnea Tracheobronchitis CLARA positive Diverticulitis Allergic bronchitis (HFpEF) heart failure with preserved ejection fraction Subarachnoid bleed Insomnia Anti-phospholipid antibody syndrome Hypogammaglobulinemia Chronic respiratory failure Arterial insufficiency of lower extremity Complex regional pain syndrome i of right lower limb Post herpetic neuralgia Pulmonary hypertension Pericardial effusion Pulmonary emboli Pleural effusion Radiation fibrosis of lung Pneumonitis Pulmonary nodules KANDY treated with BiPAP Lung cancer Family History Sister No problems noted. Mother Cardiovascular disease Daughter Tachycardia Other KANDY (obstructive sleep apnea) Surgical History History of colonoscopy History of lung surgery History of tonsillectomy History of hysterectomy S/P mitral valve clip implantation History of cardiac cath Social History Household Members: None Housing: House Do you presently have visiting nurse or other home services: No Unable to assess alcohol history related to: Unknown Alcohol intake: former Comment: stand by assist with ambulation Patient Tobacco Use Status: Never used Tobacco Smoked in Last 30 Days: No Second Hand Smoke Exposure: No Advance Directives: Yes Advance Directives on File: Yes Advance Directives Date on File: 06/15/22 service: No Current occupational status: retired Meds Allergies Allergy/AdvReac Type Severity Reaction Status Date / Time morphine Allergy Severe Itching Verified 01/14/24 01:18 avocado [AVOCADO] Allergy Mild ITCHY Verified 01/14/24 01:18 THROAT, RASH azithromycin [AZITHROMYCIN] Allergy Mild ITCHY Verified 01/14/24 01:18 THROAT, RASH barium iodide [BARIUM IODIDE] Allergy Mild ITCHY Verified 01/14/24 01:18 THROAT, RASH barium sulfate Allergy Mild Itch Verified 01/14/24 01:18 bee pollen [BEE STINGS] Allergy Mild ITCHY Verified 01/14/24 01:18 THROAT, RASH ciprofloxacin [From CIPRO] Allergy Mild ITCHY Verified 01/14/24 01:18 THROAT, RASH clarithromycin [From BIAXIN] Allergy Mild ITCHY Verified 01/14/24 01:18 THROAT, RASH diatrizoate meglumine Allergy Mild ITCHY Verified 01/14/24 01:18 [From GASTROGRAFIN] THROAT, RASH diatrizoate sodium Allergy Mild ITCHY Verified 01/14/24 01:18 [From GASTROGRAFIN] THROAT, RASH diclofenac [From VOLTAREN] Allergy Mild ITCHY Verified 01/14/24 01:18 THROAT, RASH erythromycin base Allergy Mild ITCHY Verified 01/14/24 01:18 [ERYTHROMYCIN BASE] THROAT, RASH gentamicin [GENTAMICIN] Allergy Mild ITCHY Verified 01/14/24 01:18 THROAT, RASH Iodinated Contrast Media Allergy Mild ITCHY Verified 01/14/24 01:18 [IVP DYE] THROAT, RASH levofloxacin [From LEVAQUIN] Allergy Mild ITCHY Verified 01/14/24 01:18 THROAT, RASH metronidazole [From FLAGYL] Allergy Mild ITCHY Verified 01/14/24 01:18 THROAT, RASH moxifloxacin [From AVELOX] Allergy Mild ITCHY Verified 01/14/24 01:18 THROAT, RASH Penicillins [PENICILLINS] Allergy Mild ITCHY Verified 01/14/24 01:18 THROAT, RASH shrimp [SHRIMP] Allergy Mild ITCHY Verified 01/14/24 01:18 THROAT, RASH Sulfa (Sulfonamide Allergy Mild ITCHY Verified 01/14/24 01:18 Antibiotics) THROAT, [SULFA (SULFONAMIDE RASH ANTIBIOTICS)] vancomycin [VANCOMYCIN] Allergy Mild ITCHY Verified 01/14/24 01:18 THROAT, RASH clindamycin AdvReac Intermediate Unknown Verified 01/14/24 01:18 Home Medications ?Medication ?Instructions ?Recorded ?Confirmed ?Last Taken ?Type levothyroxine 25 mcg tablet 25 mcg PO MOTUWETHFR@0600 06/14/22 01/14/24 01/04/24 History (Synthroid) CPAP (CPAP Machine/Device) 06/30/22 11/20/23 Unknown History Oxygen Home Use 06/30/22 11/20/23 Unknown History nebulizers 06/30/22 11/20/23 Unknown History epinephrine 0.3 mg/0.3 mL 0.3 mg IM USEASDIRECTD PRN 07/14/22 01/14/24 Unknown History injection, auto-injector Allergic Reaction prednisone 2.5 mg tablet 2.5 mg PO Q48H 08/09/23 01/14/24 01/04/24 History diazepam 5 mg tablet 5 mg PO Q8H PRN Anxiety 01/05/24 01/14/24 Unknown History furosemide 40 mg tablet 40 mg PO DAILY@1200 01/05/24 01/14/24 01/04/24 History furosemide 40 mg tablet 80 mg PO DAILY 01/05/24 01/14/24 01/04/24 History levothyroxine 25 mcg tablet 50 mcg PO SUSA@0600 01/05/24 01/14/24 01/04/24 History (Synthroid) nystatin 100,000 unit/gram topical 1 appl topical BID 01/05/24 01/14/24 01/04/24 History powder rosuvastatin 10 mg tablet 10 mg PO MOWEFR 01/05/24 01/14/24 01/04/24 History warfarin 2.5 mg tablet (Jantoven) 2.5 mg PO DAILY@1800 01/05/24 01/14/2401/12/24 History collagenase clostridium histo. 250 1 appl topical DAILY 01/14/24 01/14/24 Unknown History unit/gram topical ointment (Santyl) collagenase clostridium histo. 250 1 appl topical DAILY PRN soiled/no 01/14/24 01/14/24 Unknown History unit/gram topical ointment (Santyl) longer intact docusate sodium 100 mg capsule 100 mg PO DAILY 01/14/24 01/14/24 Unknown History ferrous sulfate 325 mg (65 mg 325 mg PO DAILY 01/14/24 01/14/24 Unknown History iron) tablet meclizine 25 mg tablet 25 mg PO Q8H PRN dizziness 01/14/24 01/14/24 Unknown History methyl salicylate 15 %-menthol 10 1 appl topical DAILY PRN Pain 01/14/24 01/14/24 Unknown History % topical cream (Muscle Rub) oxycodone 5 mg tablet 5 mg PO Q4H PRN Pain 01/14/24 01/14/24 Unknown History Physical Exam 2 Vital Signs and Narrative: Vital Signs: Last Vital Signs Temp 97.4 F 01/14/24 08:49 Pulse 78 01/14/24 10:41 Resp 18 01/14/24 10:41 BP 106/50 L 01/14/24 10:41 Pulse Ox 96 01/14/24 08:49 O2 Del Method Nasal Cannula 01/14/24 08:49 O2 Flow Rate 2 01/14/24 08:49 Oxygen Flow Rate 2 01/14/24 01:16 BMI result Body Mass Index 25.1 RLE wound bandaged (see pic for ED note) Results Labs 01/14/24 07:53 01/14/24 07:54 Labs: Laboratory Results - last 24 hr 01/14/24 01/14/24 07:53 07:54 MCV 100.0 H MCH 33.1 H MCHC 33.1 RDW 13.5 Plt Count 279 D MPV 10.8 Immature Gran % (Auto) 1.3 H Neut % (Auto) 73.4 H Lymph % (Auto) 9.7 L Sharp % (Auto) 13.1 H Eos % (Auto) 1.8 Baso % (Auto) 0.7 Lymph # (Auto) 1.1 L Sharp # (Auto) 1.4 H Eos # (Auto) 0.2 Baso # (Auto) 0.1 Abs Immat Gran (auto) 0.14 H Absolute Neuts (auto) 8.1 Absolute Nucleated RBC 0.000 Nucleated RBC % (auto) 0.0 PT 25.9 H INR 2.1 H APTT 44.3 H Anion Gap 12 Estim Creat Clear Calc 49.9 Estimated GFR > 60 Random Glucose 97 Calcium 10.4 H Total Bilirubin 0.7 Direct Bilirubin 0.3 AST 18 ALT 14 Alkaline Phosphatase 57 Total Protein 6.4 L Albumin 3.3 L Assessment and Plan (1) Cellulitis of leg, right: Status: Acute Plan 78F PMH CAD s/p NSTEMI, HFpEF, hx of subarachnoid hemorrhage, chronic hypoxic and hypercapneic respiratory failure due to COPD, pulmonary hypertension, on 2L supplemental home O2 prn, KANDY on BiPAP at night, hx of non-small cell lung cancer s/p chemo, radiation, and left upper lobe lobectomy, antiphospholipid antibody syndrome, hx of DVT/PE on Coumadin, and anxiety presented with erythema right lower extremity wound Right lower extremity wound site cellulitis General surgery performed debridement bedside, continued follow IV doxycycline History of DVT/PE due to antiphospholipid syndrome Continue Coumadin, monitor INR Chronic hypoxic and hypercapnic respiratory failure due to COPD and pulmonary hypertension Stable on 2 L Chronic diastolic CHF Continue Lasix Appears euvolemic Coronary artery disease Continue Coumadin and statin KANDY BiPAP at night Hypothyroid Continue levothyroxine Anxiety Continue diazepam Full code Patient with wound site cellulitis requiring IV antibiotics and close monitoring for at least 2 midnights as patient is high risk for progression to sepsis due to advanced age and multiple comorbidities Quality Stroke Does the patient have a stroke diagnosis?: No VTE Prior VTE?: Yes VTE Risk Level:: Medical - moderate - high VTE Device Contraindication: Treatment Not Indicated VTE Drug Contraindication: N/A - Med Ordered
--- NOTE | 2024-01-14 12:28 | PHA.MEDREC ---
Pharmacy Consult ? Medication Reconciliation Pharmacy has completed the medication reconciliation. used list from [facility]. Per staff at [facility], patient received warfarin and doxycycline yesterday.
[2024-01-14] MEDS: Doxycycline Hyclate 100 MG in 0.9 % Sodium Chloride 250 ML 166.67 MG IV ×2 (13:47→23:59)
[2024-01-14] MEDS: predniSONE 2.5 MG TABLET PO (14:59)
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
[2024-01-14] MEDS: Warfarin Sodium 2 MG TABLET PO (19:46)
[2024-01-14] MEDS: Metoprolol Succinate ER 50 MG TAB.ER.24H PO (19:46)
[2024-01-14] MEDS: Chlorhexidine Gluc Oral Rinse 15 ML MOUTHWASH BUCCAL (19:48)
[2024-01-14] MEDS: traZODone HCL 100 MG TABLET PO (22:48)
[2024-01-14] MEDS: 0.9 % Sodium Chloride Flush 3 ML SYRINGE IVFLUSH (23:55)
[2024-01-15 03:33] VITALS: BP 97/57; PULSE 74; RESP 16; TEMP 36.7; O2SAT 98
--- NOTE | 2024-01-15 05:10 | PC.NURSE ---
Patient is c/o dry eyes and states she uses systane eye drops, not ordered.
[2024-01-15] MEDS: oxyCODONE HCl Immed Release 5 MG TABLET PO ×4 (05:18→18:24)
[2024-01-15] MEDS: Levothyroxine Sodium 25 MCG TABLET PO (05:18)
[2024-01-15 05:21] VITALS: BP 131/61; PULSE 91
[2024-01-15 06:19] LABS: Hematocrit 26.9 % (37.0-47.0); Hemoglobin 8.8 g/dl (12.0-16.0); Mean Corpuscular HGB Conc 32.7 g/dl (31.0-35.0); Mean Corpuscular Hemoglobin 33.5 pg (27.0-33.0); Mean Corpuscular Volume 102.3 fL (80.0-98.0); Platelet Count 267 X10*3/uL (160-400); Red Blood Count 2.63 X10*6/uL (4.20-5.50); Red Cell Distribution Width 13.4 % (11.0-16.0); White Blood Count 9.2 X10*3/uL (4.8-10.8)
[2024-01-15 06:30] LABS: INTERNATIONAL NORM RATIO 2.3 (0.9-1.1); Prothrombin Time 28.2 SEC (11.1-13.3)
[2024-01-15 06:49] LABS: Anion Gap 9 (12-20); Blood Urea Nitrogen 18 mg/dL (9-16); Calcium 10.1 mg/dL (8.4-10.2); Carbon Dioxide 34 mmol/L (22-29); Chloride 98 mmol/L (96-108); Creatinine Clr Calc Pharmacy 52.9; Estimated Glomerular Filt Rate > 60; Glucose Fasting 87 mg/dL (60-99); Potassium 3.8 mmol/L (3.3-5.1); Sodium 137 mmol/L (135-145)
[2024-01-15 07:17] VITALS: BP 98/50; PULSE 81; RESP 16; TEMP 36.7; O2SAT 98
--- NOTE | 2024-01-15 08:08 | P.PNGS_ITS ---
Subjective Subjective Date of Service: 01/15/24 Interval history: Describes pain on the debridement site Otherwise no events reported Physical Exam 2 Vital Signs: Vital Signs: Last Vital Signs Temp 98.0 F 01/15/24 07:17 Pulse 81 01/15/24 07:17 Resp 16 01/15/24 07:17 BP 98/50 L 01/15/24 07:17 Pulse Ox 98 01/15/24 07:17 O2 Del Method Nasal Cannula 01/15/24 07:17 O2 Flow Rate 2 01/15/24 07:17 Oxygen Flow Rate 2 01/14/24 01:16 BMI result Body Mass Index 26.1 Const: General: comfortable and no acute distress Resp: Effort & Inspection: normal respiratory effort Extrem: Other: Open debrided wound, right leg, with patchy areas of current lots, cellulitis appears to be resolved, no gangrene Objective Data Active Medications Acetaminophen (Acetaminophen 325 Mg Tablet) 650 mg PO Q6H PRN PRN Reason: Pain, Mild (Pain Scale 1-3), fever or headache Albuterol Sulfate (Albuterol Sulfate (0.083%) 2.5 Mg/3 Ml Vial.Neb) 2.5 mg INHALE Q6H PRN PRN Reason: shortness of breath or wheezing Atorvastatin Calcium (Atorvastatin Calcium 40 Mg Tablet) 40 mg PO MoWeFr@2100 [facility] Calcium Carbonate (Calcium Carbonate 750 Mg Tab.Chew) 750 mg PO Q4H PRN PRN Reason: Heartburn Chlorhexidine Gluconate (Chlorhexidine Gluc Oral Rinse 15 Ml Mouthwash) 15 ml BUCCAL BID [facility] Last Admin: 01/14/24 19:48 Dose: 15 ml Documented By: CYNDY Diazepam (Diazepam 5 Mg Tablet) 5 mg PO Q8H PRN PRN Reason: Anxiety Docusate Sodium (Docusate Sodium 100 Mg Capsule) 100 mg PO DAILY [facility] Ferrous Sulfate (Ferrous Sulfate 324 Mg Tablet.Dr) 324 mg PO DAILY [facility] Fluticasone/Vilanterol (Fluticasone/Vilanterol 200/25 Blst.W.Dev) 1 puff INHALE RDAILY [facility] Furosemide (Furosemide 40 Mg Tablet) 40 mg PO DAILY@1200 MATHEW; Protocol Furosemide (Furosemide 40 Mg Tablet) 80 mg PO DAILY [facility]; Protocol Doxycycline Hyclate 100 mg/ (Sodium Chloride) 250 mls @ 166.67 mls/hr IV Q12H [facility] Last Infusion: 01/15/24 01:19 Dose: Infused Documented By: MÓNICA Levothyroxine Sodium (Levothyroxine Sodium 25 Mcg Tablet) 25 mcg PO MOTUWETHFR@0600 [facility] Last Admin: 01/15/24 05:18 Dose: 25 mcg Documented By: MÓNICA Levothyroxine Sodium (Levothyroxine Sodium 50 Mcg Tablet) 50 mcg PO SUSA@0600 [facility] Loratadine (Loratadine 10 Mg Tablet) 10 mg PO DAILY [facility] Magnesium Hydroxide (Milk Of Magnesia 30 Ml Oral.Susp) 30 ml PO DAILY PRN PRN Reason: Constipation Meclizine HCl (Meclizine Hcl 25 Mg Tablet) 25 mg PO Q8H PRN PRN Reason: dizziness Melatonin (Melatonin 3 Mg Tablet) 6 mg PO BEDTIME PRN PRN Reason: Insomnia Metoprolol Succinate (Metoprolol Succinate Er 50 Mg Tab.Er.24h) 50 mg PO BID [facility]; Protocol Last Admin: 01/14/24 19:46 Dose: 50 mg Documented By: CYNDY Montelukast Sodium (Montelukast Sodium 10 Mg Tablet) 10 mg PO DAILY [facility] Nystatin (Nystatin Powder 15 Gm Bottle) 1 appl TOPICAL BID [facility]; Protocol Last Admin: 01/14/24 19:49 Dose: Not Given Documented By: CYNDY Non-Admin Reason: Patient Refused Oxycodone HCl (Oxycodone Hcl Immed Release 5 Mg Tablet) 5 mg PO Q4H PRN PRN Reason: mrate pain Last Admin: 01/15/24 05:18 Dose: 5 mg Documented By: MÓNICA Potassium Chloride (Potassium Chloride Packet 20 Meq Packet) 20 meq PO DAILY [facility] Prednisone (Prednisone 2.5 Mg Tablet) 2.5 mg PO Q48H [facility] Last Admin: 01/14/24 14:59 Dose: 2.5 mg Documented By: DEJA Sodium Chloride (0.9 % Sodium Chloride Flush 3 Ml Syringe) 3 ml IVFLUSH QSHIFT [facility] Last Admin: 01/14/24 23:55 Dose: 3 ml Documented By: MÓNICA Trazodone HCl (Trazodone Hcl 100 Mg Tablet) 100 mg PO BEDTIME [facility] Last Admin: 01/14/24 22:48 Dose: 100 mg Documented By: HO.TARANO Warfarin Sodium (Warfarin Sodium 2.5 Mg Tablet) 2.5 mg PO DAILY@1800 [facility] Last Admin: 01/14/24 18:37 Dose: Not Given Documented By: BEV Non-Admin Reason: Patient Refused Labs 01/15/24 05:01 01/15/24 05:01 Labs: Laboratory Results - last 24 hr 01/14/24 01/14/24 01/15/24 07:53 07:54 05:01 MCV 100.0 H 102.3 H MCH 33.1 H 33.5 H MCHC 33.1 32.7 RDW 13.5 13.4 Plt Count 279 D 267 MPV 10.8 11.0 Immature Gran % (Auto) 1.3 H Neut % (Auto) 73.4 H Lymph % (Auto) 9.7 L [place] % (Auto) 13.1 H Eos % (Auto) 1.8 Baso % (Auto) 0.7 Lymph # (Auto) 1.1 L [place] # (Auto) 1.4 H Eos # (Auto) 0.2 Baso # (Auto) 0.1 Abs Immat Gran (auto) 0.14 H Absolute Neuts (auto) 8.1 Absolute Nucleated RBC 0.000 0.000 Nucleated RBC % (auto) 0.0 0.0 PT 25.9 H 28.2 H INR 2.1 H 2.3 H APTT 44.3 H Anion Gap 12 9 L Estim Creat Clear Calc 49.9 52.9 Estimated GFR > 60 > 60 Random Glucose 97 Fasting Glucose 87 Calcium 10.4 H 10.1 Total Bilirubin 0.7 Direct Bilirubin 0.3 AST 18 ALT 14 Alkaline Phosphatase 57 Total Protein 6.4 L Albumin 3.3 L Procedures Date of Service Date of Service: 01/15/24 Progress Note: A&P Assessment and plan (1) Open wound: Status: Acute Assessment and Plan: She had debridement of an open wound on the right leg previous large hematoma I have changed her dressings - fresh wet-to-dry dressings applied Cellulitis seems resolved Continue daily wound care with wet-to-dry dressings Pain management Follow up with wound clinic She also states he does not want to return to [facility] Time Spent With Patient Time: Total time managing care of this patient today ____ minutes. Quality Stroke Does the patient have a stroke diagnosis?: No VTE Prior VTE?: Yes VTE Risk Level:: Medical - moderate - high VTE Device Contraindication: Treatment Not Indicated VTE Drug Contraindication: N/A - Med Ordered
--- NOTE | 2024-01-15 08:47 | HO.PM.IMPN ---
Subjective Subjective Date of Service: 01/15/24 Interval History: rle pain Physical Exam Vital Signs: Vital Signs: Last Vital Signs Temp 98.0 F 01/15/24 07:17 Pulse 81 01/15/24 07:17 Resp 16 01/15/24 07:17 BP 98/50 L 01/15/24 07:17 Pulse Ox 98 01/15/24 07:17 O2 Del Method Nasal Cannula 01/15/24 07:17 O2 Flow Rate 2 01/15/24 07:17 Oxygen Flow Rate 2 01/14/24 01:16 BMI result Body Mass Index 26.1 Const: General: comfortable and no acute distress Resp: Effort & Inspection: normal respiratory effort Extrem: Other: Open debrided wound, right leg, with patchy areas of current lots, cellulitis appears to be resolved, no gangrene Objective Data Active Medications Acetaminophen (Acetaminophen 325 Mg Tablet) 650 mg PO Q6H PRN PRN Reason: Pain, Mild (Pain Scale 1-3), fever or headache Acyclovir (Acyclovir 5 % Oint 15 Gm Tube) 1 gm TOPICAL 5XD [facility] Albuterol Sulfate (Albuterol Sulfate (0.083%) 2.5 Mg/3 Ml Vial.Neb) 2.5 mg INHALE Q6H PRN PRN Reason: shortness of breath or wheezing Artificial Tears (Artificial Tears 15 Ml Drops) 2 drop EYE-BOTH Q4H PRN PRN Reason: Dry Eyes Atorvastatin Calcium (Atorvastatin Calcium 40 Mg Tablet) 40 mg PO MoWeFr@2100 [facility] Calcium Carbonate (Calcium Carbonate 750 Mg Tab.Chew) 750 mg PO Q4H PRN PRN Reason: Heartburn Chlorhexidine Gluconate (Chlorhexidine Gluc Oral Rinse 15 Ml Mouthwash) 15 ml BUCCAL BID [facility] Last Admin: 01/14/24 19:48 Dose: 15 ml Documented By: CYNDY Diazepam (Diazepam 5 Mg Tablet) 5 mg PO Q8H PRN PRN Reason: Anxiety Docusate Sodium (Docusate Sodium 100 Mg Capsule) 100 mg PO DAILY [facility] Ferrous Sulfate (Ferrous Sulfate 324 Mg Tablet.Dr) 324 mg PO DAILY [facility] Fluticasone/Vilanterol (Fluticasone/Vilanterol 200/25 Blst.W.Dev) 1 puff INHALE RDAILY [facility] Furosemide (Furosemide 40 Mg Tablet) 40 mg PO DAILY@1200 [facility]; Protocol Furosemide (Furosemide 40 Mg Tablet) 80 mg PO DAILY [facility]; Protocol Doxycycline Hyclate 100 mg/ (Sodium Chloride) 250 mls @ 166.67 mls/hr IV Q12H [facility] Last Infusion: 01/15/24 01:19 Dose: Infused Documented By: MÓNICA Levothyroxine Sodium (Levothyroxine Sodium 25 Mcg Tablet) 25 mcg PO MOTUWETHFR@0600 [facility] Last Admin: 01/15/24 05:18 Dose: 25 mcg Documented By: MÓNICA Levothyroxine Sodium (Levothyroxine Sodium 50 Mcg Tablet) 50 mcg PO SUSA@0600 [facility] Lidocaine HCl (Lidocaine 4 % Cream Kit) 1 appl TOPICAL ONCE PRN; Protocol PRN Reason: right shoulder pain Loratadine (Loratadine 10 Mg Tablet) 10 mg PO DAILY [facility] Magnesium Hydroxide (Milk Of Magnesia 30 Ml Oral.Susp) 30 ml PO DAILY PRN PRN Reason: Constipation Meclizine HCl (Meclizine Hcl 25 Mg Tablet) 25 mg PO Q8H PRN PRN Reason: dizziness Melatonin (Melatonin 3 Mg Tablet) 6 mg PO BEDTIME PRN PRN Reason: Insomnia Metoprolol Succinate (Metoprolol Succinate Er 50 Mg Tab.Er.24h) 50 mg PO BID [facility]; Protocol Last Admin: 01/14/24 19:46 Dose: 50 mg Documented By: CYNDY Montelukast Sodium (Montelukast Sodium 10 Mg Tablet) 10 mg PO DAILY [facility] Nystatin (Nystatin Powder 15 Gm Bottle) 1 appl TOPICAL BID [facility]; Protocol Last Admin: 01/14/24 19:49 Dose: Not Given Documented By: CYNDY Non-Admin Reason: Patient Refused Oxycodone HCl (Oxycodone Hcl Immed Release 5 Mg Tablet) 5 mg PO Q4H PRN PRN Reason: mrate pain Last Admin: 01/15/24 05:18 Dose: 5 mg Documented By: MÓNICA Potassium Chloride (Potassium Chloride Packet 20 Meq Packet) 20 meq PO DAILY [facility] Prednisone (Prednisone 2.5 Mg Tablet) 2.5 mg PO Q48H [facility] Last Admin: 01/14/24 14:59 Dose: 2.5 mg Documented By: GAZZIDIANE Sodium Chloride (0.9 % Sodium Chloride Flush 3 Ml Syringe) 3 ml IVFLUSH [facility]SHICHI [facility] Last Admin: 01/14/24 23:55 Dose: 3 ml Documented By: MÓNICA Trazodone HCl (Trazodone Hcl 100 Mg Tablet) 100 mg PO BEDTIME [facility] Last Admin: 01/14/24 22:48 Dose: 100 mg Documented By: CYNDY Warfarin Sodium (Warfarin Sodium 2.5 Mg Tablet) 2.5 mg PO DAILY@1800 [facility] Last Admin: 01/14/24 18:37 Dose: Not Given Documented By: BEV Non-Admin Reason: Patient Refused Labs 01/15/24 05:01 01/15/24 05:01 Labs: Laboratory Results - last 24 hr 01/15/24 05:01 MCV 102.3 H MCH 33.5 H MCHC 32.7 RDW 13.4 Plt Count 267 MPV 11.0 Absolute Nucleated RBC 0.000 Nucleated RBC % (auto) 0.0 PT 28.2 H INR 2.3 H Anion Gap 9 L Estim Creat Clear Calc 52.9 Estimated GFR > 60 Fasting Glucose 87 Calcium 10.1 Assessment and Plan (1) Hematoma of right lower leg: Status: Resolved (2) Chronic hypercapnic respiratory failure: Status: Inactive Plan 78F PMH CAD s/p NSTEMI, HFpEF, hx of subarachnoid hemorrhage, chronic hypoxic and hypercapneic respiratory failure due to COPD, pulmonary hypertension, on 2L supplemental home O2 prn, KANDY on BiPAP at night, hx of non-small cell lung cancer s/p chemo, radiation, and left upper lobe lobectomy, antiphospholipid antibody syndrome, hx of DVT/PE on Coumadin, and anxiety presented with erythema right lower extremity wound Right lower extremity wound site cellulitis General surgery performed debridement bedside 01/14/24, continue daily dressing changes IV doxycycline - cellulitis mostly resolved at this point History of DVT/PE due to antiphospholipid syndrome Continue Coumadin, monitor INR - goal 1.5 - 2 due to bleeding diathesis, suspected platelet dysfunction Chronic hypoxic and hypercapnic respiratory failure due to COPD and pulmonary hypertension Stable on 2 L Chronic diastolic CHF Continue Lasix Appears euvolemic Coronary artery disease Continue Coumadin and statin KANDY BiPAP at night Hypothyroid Continue levothyroxine Anxiety Continue diazepam Full code reason for continued hospitalization:daily dressing changes Quality Stroke Does the patient have a stroke diagnosis?: No VTE Prior VTE?: Yes VTE Risk Level:: Medical - moderate - high VTE Device Contraindication: Treatment Not Indicated VTE Drug Contraindication: N/A - Med Ordered
[2024-01-15] MEDS: Docusate Sodium 100 MG CAPSULE PO (09:25)
[2024-01-15] MEDS: Loratadine 10 MG TABLET PO (09:25)
[2024-01-15] MEDS: diazePAM 5 MG TABLET PO (09:25)
[2024-01-15] MEDS: Ferrous Sulfate 324 MG TABLET.DR PO (09:25)
[2024-01-15] MEDS: Montelukast Sodium 10 MG TABLET PO (09:26)
[2024-01-15] MEDS: Metoprolol Succinate ER 50 MG TAB.ER.24H PO ×2 (09:27→19:47)
[2024-01-15] MEDS: Potassium Chloride Packet 20 MEQ PACKET PO (09:28)
[2024-01-15] MEDS: Furosemide 40 MG TABLET 80 MG PO (09:29)
[2024-01-15] MEDS: Chlorhexidine Gluc Oral Rinse 15 ML MOUTHWASH BUCCAL ×2 (09:30→19:47)
--- NOTE | 2024-01-15 09:33 | P.CDIM_ITS ---
PROVIDER RESPONSE TEXT: To clarify, the appropriate diagnosis supported by the clinical indicators: Hypokalemia: acute QUERY TEXT: PHYSICIAN'S DOCUMENTATION REQUEST Date of Query: 01/15/2024 09:18 AM EDT Patient Name: Jovana Malik Admit Date: 01/14/2024 Dear Jhonny Dobbs, A review of the medical record indicates additional documentation may be needed. Please review below and update the documentation accordingly. Clinical Indicators: LABS: potassium 3.1 L 3.8 Klor-Con Based on the above, is there a diagnosis that correlates with these lab findings: Hypokalemia resolved, possible, probable, suspected Labs indicate a diagnosis of (please specify) Other (explain) Clinically unable to determine (explain) Thank you, Suellen Campos, CCS, CDIS Use of terms such as suspected, likely, concern for, or probable (associated with a specific diagnosi s that is being evaluated, monitored, or treated as if it exists) are acceptable and can be coded in the inpatient se tting, when documented at the time of discharge. Please use your independent medical judgment in providing your response. THIS QUERY IS PART OF THE PERMANENT MEDICAL RECORD
[2024-01-15] MEDS: Artificial Tears 15 ML DROPS 2 DROP EYE-BOTH (09:40)
--- NOTE | 2024-01-15 10:21 | MHC.CLN ---
Addendum entered by Hilaria Lauren RD 01/15/24 11:48: PATIENT DOES NOT WANT LOW SODIUM DIET. DIET CHANGED TO REGULAR WITH ENSURE TID. Original Note: NUTRITION DIET CHANGED TO 2 GRAM SODIUM. PATIENT TAKES LASIX 2 X DAILY. PER MD ENSURE TID. SUPPLEMENT PROVIDES 1050 KCALS, 60 G PROTEIN. RLE WOUND PRESENT, NOT PRESSURE RELATED. RD TO MONITOR WEEKLY.
--- NOTE | 2024-01-15 10:26 | HO.WOUND ---
Wound Consult: Initial 78yr old?female admitted to [facility] on 01/14/24 - See progress notes and H&P for detailed history.? Wound consult placed for Right Leg s/p Hematoma Evacuation site.? Patient agreeable to assessment and photo documentation.? Patient refused wound assessment today as Dr. Abdi was recently in and changed her dressing. See his note for details. He reapplied wet to dry dressing and recommends to continue with wet to moist saline dressing followed by Bang dressing. Patient reported she is looking to talk to case mgt about not returning to [facility]. Case mgt aware per direct care nurse. The wound was not assessed today however will attempt to assess tomorrow.
[2024-01-15] MEDS: Furosemide 40 MG TABLET PO (11:31)
[2024-01-15] MEDS: 0.9 % Sodium Chloride Flush 3 ML SYRINGE IVFLUSH ×3 (11:32→23:14)
[2024-01-15] MEDS: Doxycycline Hyclate 100 MG in 0.9 % Sodium Chloride 250 ML 166.67 MG IV ×2 (11:32→23:12)
[2024-01-15] MEDS: Lidocaine 4 % Cream KIT 1 APPL TOPICAL (13:05)
[2024-01-15] MEDS: Acyclovir 5 % Oint 15 GM TUBE TOPICAL ×2 (13:31→19:47)
[2024-01-15] MEDS: Nystatin Powder 15 GM BOTTLE 1 APPL TOPICAL ×2 (13:32→19:47)
[2024-01-15 15:16] VITALS: BP 117/58; PULSE 80; RESP 18; TEMP 36.9; O2SAT 99
--- NOTE | 2024-01-15 16:12 | MHC.CM.PN ---
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
[2024-01-15 19:37] VITALS: BP 114/53; PULSE 84; RESP 18; TEMP 36.6; O2SAT 98
[2024-01-15] MEDS: Atorvastatin Calcium 40 MG TABLET PO (19:47)
[2024-01-15] MEDS: traZODone HCL 100 MG TABLET PO (22:13)
[2024-01-16] VITALS (9 sets, daily range): BP systolic 112–125; BP diastolic 55–61; PULSE 76–83; RESP 18–22; TEMP 36.3–36.7; O2SAT 93–99
--- NOTE | 2024-01-16 | ECG_ITS ---
Test Reason : chest pain Blood Pressure : / mmHG Vent. Rate : 079 BPM Atrial Rate : 079 BPM P-R Int : 164 ms QRS Dur : 134 ms QT Int : 408 ms P-R-T Axes : 062 -59 062 degrees QTc Int : 467 ms Normal sinus rhythm Left axis deviation Non-specific intra-ventricular conduction block Minimal voltage criteria for LVH, may be normal variant ( [place] product ) Abnormal ECG When compared with ECG of 12-JAN-2024 17:28, No significant change was found Referred By: Jhonny Dobbs Electronically Signed By:Luis Eduardo Cadet
[2024-01-16] MEDS: oxyCODONE HCl Immed Release 5 MG TABLET PO ×4 (00:07→23:36)
[2024-01-16] MEDS: Levothyroxine Sodium 25 MCG TABLET PO (06:01)
[2024-01-16] MEDS: Acyclovir 5 % Oint 15 GM TUBE TOPICAL ×3 (06:01→17:23)
[2024-01-16 06:31] LABS: Hematocrit 25.8 % (37.0-47.0); Hemoglobin 8.6 g/dl (12.0-16.0); Mean Corpuscular HGB Conc 33.3 g/dl (31.0-35.0); Mean Corpuscular Hemoglobin 33.6 pg (27.0-33.0); Mean Corpuscular Volume 100.8 fL (80.0-98.0); Mean Platelet Volume 10.8 fL (9.4-12.3); NRBC Pct Auto 0.2 /100WBC (0.0-0.2); Platelet Count 259 X10*3/uL (160-400); Red Blood Count 2.56 X10*6/uL (4.20-5.50); Red Cell Distribution Width 13.2 % (11.0-16.0); White Blood Count 10.5 X10*3/uL (4.8-10.8)
[2024-01-16 06:56] LABS: Anion Gap 8 (12-20); Blood Urea Nitrogen 20 mg/dL (9-16); Calcium 9.8 mg/dL (8.4-10.2); Carbon Dioxide 33 mmol/L (22-29); Chloride 98 mmol/L (96-108); Creatinine Clr Calc Pharmacy 53.6; Estimated Glomerular Filt Rate > 60; Glucose Fasting 93 mg/dL (60-99); Potassium 3.3 mmol/L (3.3-5.1); Sodium 136 mmol/L (135-145)
[2024-01-16 07:00] LABS: INTERNATIONAL NORM RATIO 1.9 (0.9-1.1); Prothrombin Time 22.9 SEC (11.1-13.3)
[2024-01-16] MEDS: Docusate Sodium 100 MG CAPSULE PO (08:56)
[2024-01-16] MEDS: Furosemide 40 MG TABLET 80 MG PO (08:56)
[2024-01-16] MEDS: Loratadine 10 MG TABLET PO (08:56)
[2024-01-16] MEDS: Metoprolol Succinate ER 50 MG TAB.ER.24H PO ×2 (08:57→21:06)
[2024-01-16] MEDS: Montelukast Sodium 10 MG TABLET PO (08:58)
[2024-01-16] MEDS: Ferrous Sulfate 324 MG TABLET.DR PO (08:58)
[2024-01-16] MEDS: Doxycycline Monohydrate 100 MG CAPSULE PO ×2 (08:58→21:06)
[2024-01-16] MEDS: Potassium Chloride Packet 20 MEQ PACKET PO (08:58)
[2024-01-16] MEDS: 0.9 % Sodium Chloride Flush 3 ML SYRINGE IVFLUSH ×3 (09:01→22:21)
[2024-01-16] MEDS: Nystatin Powder 15 GM BOTTLE 1 APPL TOPICAL (09:02)
[2024-01-16] MEDS: Chlorhexidine Gluc Oral Rinse 15 ML MOUTHWASH BUCCAL ×2 (09:03→21:06)
--- NOTE | 2024-01-16 10:42 | P.DS_ITS ---
DS: Providers Provider Date of Service: 01/16/24 Date of admission: 01/14/24 12:00 Primary care physician: Caitlyn Bowie MD Consults: 01/14/24 11:59 Consult to General Surgery Routine Consulting Provider: [facility] General Surgeons Reason for consultation: infected rle wound 01/15/24 00:11 Consult to Wound Care Routine Reason for consultation: right leg wound Has provider been notified: Yes DS: Diagnosis Discharge Diagnosis (1) Hematoma of right lower leg: Status: Resolved (2) Chronic hypercapnic respiratory failure: Status: Inactive DS: Summary Hospital Course Hospital Course: from initial hpi: 78F PMH CAD s/p NSTEMI, HFpEF, hx of subarachnoid hemorrhage, chronic hypoxic and hypercapneic respiratory failure due to COPD, pulmonary hypertension, on 2L supplemental home O2 prn, KANDY on BiPAP at night, hx of non-small cell lung cancer s/p chemo, radiation, and left upper lobe lobectomy, antiphospholipid antibody syndrome, hx of DVT/PE on Coumadin, and anxiety. She was recently discharged from [facility] after hospitalization from 01/04/24 to 01/09/24 for traumatic hematoma of the right lower extremity underwent evacuation by vascular surgery given prophylactic doxycycline, restarted on Coumadin, discharged to intermediate facility. On day prior to presentation patient started to notice worsening erythema at wound site was concerned about infection so was transferred to ED in ED was seen by General surgery performed bedside debridement. Patient denies any fevers or chills or increased pain to site. hospital course: Patient was admitted for right lower extremity wound site cellulitis. She was seen by General surgery who performed debridement at bedside and recommended continued daily dressings. She was treated with IV doxycycline and cellulitis mostly resolved she will continue 5 more days of p.o. doxycycline. For history of DVT/PE due to antiphospholipid syndrome complicated by bleeding diathesis with possible platelet dysfunction was continued on Coumadin with a goal of INR 1.5-2. For chronic hypoxic and hypercapnic respiratory failure due to COPD and pulmonary hypertension she was stable on 2 L. For chronic diastolic CHF she was continued on Lasix and appeared euvolemic. Coronary artery disease she was continued on Coumadin statin. For KANDY she was on BiPAP at night. For hypothyroidism she was continued on Synthroid. For anxiety she was continued on diazepam. Patient is feeling better will be discharged back to intermediate facility. Time Attestation Discharge Coordination Time (in mins): 32 Quality: Safe Use of Opioids Does Pt have an Active Cancer Diagnosis on the Problem List?: No Quality: Stroke Does the patient have a stroke diagnosis?: No Physical Exam Vital Signs: Vital Signs: Last Vital Signs Temp 97.5 F 01/16/24 07:44 Pulse 82 01/16/24 08:57 Resp 22 H 01/16/24 07:44 BP 125/61 01/16/24 08:56 Pulse Ox 99 01/16/24 07:44 O2 Del Method Nasal Cannula 01/16/24 07:44 O2 Flow Rate 2 01/16/24 07:44 Oxygen Flow Rate 2 01/14/24 01:16 BMI result Body Mass Index 26.1 Const: General: comfortable and no acute distress Resp: Effort & Inspection: normal respiratory effort Extrem: Other: Open debrided wound, right leg, with patchy areas of current lots, cellulitis appears to be resolved, no gangrene DS: Data Data Completed and Pending Completed studies during hospitalization [Text1]: Procedures Assistance with Respiratory Ventilation, Less than 24 Consecutive Hours, Continuous Positive Airway Pressure (01/04/24) Excision of Right Lower Leg Skin, External Approach (01/04/24) Labs on day of discharge: Laboratory Results - last 24 hr 01/16/24 05:34 WBC 10.5 RBC 2.56 L Hgb 8.6 L Hct 25.8 L MCV 100.8 H MCH 33.6 H MCHC 33.3 RDW 13.2 Plt Count 259 MPV 10.8 Absolute Nucleated RBC 0.020 H Nucleated RBC % (auto) 0.2 PT 22.9 H INR 1.9 H Sodium 136 Potassium 3.3 Chloride 98 Carbon Dioxide 33 H Anion Gap 8 L BUN 20 H Creatinine 0.74 Estim Creat Clear Calc 53.6 Estimated GFR > 60 Fasting Glucose 93 Calcium 9.8 Discharge Plan Discharge Anticipated Discharge Date/Time: 01/16/24 10:39 Patient Disposition: Xfer SNF Discharge Diagnosis: cellulitis Referrals: Caitlyn Bowie MD [Primary Care Provider] - 1 Week Discharge Medications: Continued albuterol sulfate 2.5 mg /3 mL (0.083 %) solution for nebulization 2.5 mg inhalation Q6H PRN (Reason: shortness of breath or wheezing) 30 Days Qty: 180 11RF Advair HFA 230-21 mcg/actuation HFA aerosol inhaler 2 puff inhalation BID 90 Days Qty: 36 4RF potassium chloride 20 mEq packet 20 meq PO DAILY Qty: 50 3RF chlorhexidine gluconate 0.12 % mouthwash 15 ml buccal BID 14 Days Qty: 420 1RF levothyroxine [Synthroid] 25 mcg tablet 25 mcg PO MOTUWETHFR@0600 furosemide 40 mg tablet 80 mg PO DAILY nystatin 100,000 unit/gram powder 1 appl topical BID diazepam 5 mg tablet 5 mg PO Q8H PRN (Reason: Anxiety) furosemide 40 mg Tablet 40 mg PO DAILY@1200 warfarin [Jantoven] 2.5 mg Tablet 2.5 mg PO DAILY@1800 levothyroxine [Synthroid] 25 mcg Tablet 50 mcg PO SUSA@0600 rosuvastatin 10 mg tablet 10 mg PO MOWEFR doxycycline monohydrate 100 mg Capsule 100 mg PO Q12H Qty: 10 0RF Rx Instructions: End date: 01/[address] [place] ferrous sulfate 325 mg (65 mg iron) Tablet 325 mg PO DAILY docusate sodium 100 mg Capsule 100 mg PO DAILY Muscle Rub 15-10 % Cream 1 appl TOPICAL DAILY PRN (Reason: Pain) Rx Instructions: shoulder or painful area meclizine 25 mg tablet 25 mg PO Q8H PRN (Reason: dizziness) oxycodone 5 mg tablet 5 mg PO Q4H PRN (Reason: Pain) Rx Instructions: Partial Fill upon patient request. (DME) nebulizers Misc See Rx Instructions .Route Rx Instructions: As directed (DME) CPAP Machine/Device Device See Rx Instructions .Route Rx Instructions: As directed (DME) Oxygen Home Use Kit See Rx Instructions .Route Rx Instructions: As directed epinephrine 0.3 mg/0.3 mL auto-injector 0.3 mg IM USEASDIRECTD PRN (Reason: Allergic Reaction) metoprolol succinate [Toprol XL] 50 mg tablet extended release 24 hr 50 mg PO BID Qty: 120 3RF prednisone 2.5 mg tablet 2.5 mg PO Q48H levocetirizine 5 mg tablet 5 mg PO DAILY 90 Days Qty: 90 3RF trazodone 50 mg tablet 100 mg PO BEDTIME Qty: 180 3RF montelukast 10 mg tablet 10 mg PO DAILY Qty: 90 3RF Discontinued Santyl 250 unit/gram Ointment 1 appl TOPICAL DAILY PRN (Reason: soiled/no longer intact) Santyl 250 unit/gram Ointment 1 appl TOPICAL DAILY Discharge Orders: Discharge Order (Routine); Ordered 01/16/24 Ordered By: Jhonny Dobbs Diet: Advance to usual diet Activity on Discharge: As tolerated Stand Alone Forms: Patient Portal Discharge page Print Language: Indonesian Care Plan Goals: recovery Health Concerns: cellulitis, wound Plan of Treatment: 5 more days po doxy, daily dressing change:wet to dry dressing with saline gauze on right leg wounds. change daily and then wrap leg lightly with wild bandage. can premedicate with po pain meds. follow up with wound care physical therapy Assessment: see above
--- NOTE | 2024-01-16 10:44 | P.PNIM_ITS ---
Subjective Subjective Date of Service: 01/16/24 Interval History: rle pain Physical Exam 2 Vital Signs: Vital Signs: Last Vital Signs Temp 97.5 F 01/16/24 07:44 Pulse 82 01/16/24 08:57 Resp 22 H 01/16/24 07:44 BP 125/61 01/16/24 08:56 Pulse Ox 99 01/16/24 07:44 O2 Del Method Nasal Cannula 01/16/24 07:44 O2 Flow Rate 2 01/16/24 07:44 Oxygen Flow Rate 2 01/14/24 01:16 BMI result Body Mass Index 26.1 Const: General: comfortable and no acute distress Resp: Effort & Inspection: normal respiratory effort Extrem: Other: Open debrided wound, right leg, with patchy areas of current lots, cellulitis appears to be resolved, no gangrene Objective Data Active Medications Acetaminophen (Acetaminophen 325 Mg Tablet) 650 mg PO Q6H PRN PRN Reason: Pain, Mild (Pain Scale 1-3), fever or headache Acyclovir (Acyclovir 5 % Oint 15 Gm Tube) 1 gm TOPICAL 5XD [facility] Last Admin: 01/16/24 09:03 Dose: 1 gm Documented By: ALEK Al Hydroxide/Mg Hydroxide (Magnesium Hydrox/Alum Hydrox 30 Ml Oral.Susp) 30 ml PO Q4H PRN PRN Reason: GI Upset Albuterol Sulfate (Albuterol Sulfate (0.083%) 2.5 Mg/3 Ml Vial.Neb) 2.5 mg INHALE Q6H PRN PRN Reason: shortness of breath or wheezing Artificial Tears (Artificial Tears 15 Ml Drops) 2 drop EYE-BOTH Q4H PRN PRN Reason: Dry Eyes Last Admin: 01/15/24 09:40 Dose: 2 drop Documented By: CHRISSIE Atorvastatin Calcium (Atorvastatin Calcium 40 Mg Tablet) 40 mg PO MoWeFr@2100 [facility] Last Admin: 01/15/24 19:47 Dose: 40 mg Documented By: KATIANA Calcium Carbonate (Calcium Carbonate 750 Mg Tab.Chew) 750 mg PO Q4H PRN PRN Reason: Heartburn Chlorhexidine Gluconate (Chlorhexidine Gluc Oral Rinse 15 Ml Mouthwash) 15 ml BUCCAL BID [facility] Last Admin: 01/16/24 09:03 Dose: 15 ml Documented By: ALEK Diazepam (Diazepam 5 Mg Tablet) 5 mg PO Q8H PRN PRN Reason: Anxiety Last Admin: 01/15/24 09:25 Dose: 5 mg Documented By: CHRISSIE Docusate Sodium (Docusate Sodium 100 Mg Capsule) 100 mg PO DAILY [facility] Last Admin: 01/16/24 08:56 Dose: 100 mg Documented By: ALEK Doxycycline Monohydrate (Doxycycline Monohydrate 100 Mg Capsule) 100 mg PO BID [facility] Last Admin: 01/16/24 08:58 Dose: 100 mg Documented By: ALEK Ferrous Sulfate (Ferrous Sulfate 324 Mg Tablet.Dr) 324 mg PO DAILY [facility] Last Admin: 01/16/24 08:58 Dose: 324 mg Documented By: ALEK Furosemide (Furosemide 40 Mg Tablet) 40 mg PO DAILY@1200 [facility]; Protocol Last Admin: 01/15/24 11:31 Dose: 40 mg Documented By: CHRISSIE Furosemide (Furosemide 40 Mg Tablet) 80 mg PO DAILY [facility]; Protocol Last Admin: 01/16/24 08:56 Dose: 80 mg Documented By: ALEK Levothyroxine Sodium (Levothyroxine Sodium 25 Mcg Tablet) 25 mcg PO MOTUWETHFR@0600 [facility] Last Admin: 01/16/24 06:01 Dose: 25 mcg Documented By: NELSONQC Levothyroxine Sodium (Levothyroxine Sodium 50 Mcg Tablet) 50 mcg PO SUSA@0600 [facility] Lidocaine HCl (Lidocaine 4 % Cream Kit) 1 appl TOPICAL ONCE PRN; Protocol PRN Reason: right shoulder pain Last Admin: 01/15/24 13:05 Dose: 1 appl Documented By: CHRISSIE Loratadine (Loratadine 10 Mg Tablet) 10 mg PO DAILY [facility] Last Admin: 01/16/24 08:56 Dose: 10 mg Documented By: ALEK Magnesium Hydroxide (Milk Of Magnesia 30 Ml Oral.Susp) 30 ml PO DAILY PRN PRN Reason: Constipation Meclizine HCl (Meclizine Hcl 25 Mg Tablet) 25 mg PO Q8H PRN PRN Reason: dizziness Melatonin (Melatonin 3 Mg Tablet) 6 mg PO BEDTIME PRN PRN Reason: Insomnia Metoprolol Succinate (Metoprolol Succinate Er 50 Mg Tab.Er.24h) 50 mg PO BID [facility]; Protocol Last Admin: 01/16/24 08:57 Dose: 50 mg Documented By: HO.LARHO Montelukast Sodium (Montelukast Sodium 10 Mg Tablet) 10 mg PO DAILY [facility] Last Admin: 01/16/24 08:58 Dose: 10 mg Documented By: ALEK Patient Own Medication ( Advair Hfa 230mcg/21 Mcg) 2 puff INHALE RBID [facility] Last Admin: 01/15/24 23:15 Dose: Not Given Documented By: KATIANA Non-Admin Reason: Patient Refused Nystatin (Nystatin Powder 15 Gm Bottle) 1 appl TOPICAL BID [facility]; Protocol Last Admin: 01/16/24 09:02 Dose: 1 appl Documented By: ALEK Ondansetron HCl (Ondansetron Hcl 4 Mg/2 Ml Vial) 4 mg IVPUSH Q4H PRN PRN Reason: Nausea and Vomiting Oxycodone HCl (Oxycodone Hcl Immed Release 5 Mg Tablet) 5 mg PO Q4H PRN PRN Reason: mrate pain Last Admin: 01/16/24 06:00 Dose: 5 mg Documented By: KATIANA Potassium Chloride (Potassium Chloride Packet 20 Meq Packet) 20 meq PO DAILY [facility] Last Admin: 01/16/24 08:58 Dose: 20 meq Documented By: ALEK Prednisone (Prednisone 2.5 Mg Tablet) 2.5 mg PO Q48H [facility] Last Admin: 01/14/24 14:59 Dose: 2.5 mg Documented By: DEJA Sodium Chloride (0.9 % Sodium Chloride Flush 3 Ml Syringe) 3 ml IVFLUSH QSHIFT [facility] Last Admin: 01/16/24 09:01 Dose: 3 ml Documented By: ALEK Trazodone HCl (Trazodone Hcl 100 Mg Tablet) 100 mg PO BEDTIME [facility] Last Admin: 01/15/24 22:13 Dose: 100 mg Documented By: KATIANA Warfarin Sodium (Warfarin Sodium 1 Mg Tablet) 1 mg PO DAILY@1800 [facility] Labs 01/16/24 05:34 01/16/24 05:34 Labs: Laboratory Results - last 24 hr 01/16/24 05:34 MCV 100.8 H MCH 33.6 H MCHC 33.3 RDW 13.2 Plt Count 259 MPV 10.8 Absolute Nucleated RBC 0.020 H Nucleated RBC % (auto) 0.2 PT 22.9 H INR 1.9 H Anion Gap 8 L Estim Creat Clear Calc 53.6 Estimated GFR > 60 Fasting Glucose 93 Calcium 9.8 Assessment and Plan (1) Hematoma of right lower leg: Status: Resolved (2) Chronic hypercapnic respiratory failure: Status: Inactive Plan 78F PMH CAD s/p NSTEMI, HFpEF, hx of subarachnoid hemorrhage, chronic hypoxic and hypercapneic respiratory failure due to COPD, pulmonary hypertension, on 2L supplemental home O2 prn, KANDY on BiPAP at night, hx of non-small cell lung cancer s/p chemo, radiation, and left upper lobe lobectomy, antiphospholipid antibody syndrome, hx of DVT/PE on Coumadin, and anxiety presented with erythema right lower extremity wound Right lower extremity wound site cellulitis General surgery performed debridement bedside 01/14/24, continue daily dressing changes IV doxycycline -> changed to po- cellulitis mostly resolved at this point History of DVT/PE due to antiphospholipid syndrome Continue Coumadin, monitor INR - goal 1.5 - 2 due to bleeding diathesis, suspected platelet dysfunction Chronic hypoxic and hypercapnic respiratory failure due to COPD and pulmonary hypertension Stable on 2 L Chronic diastolic CHF Continue Lasix Appears euvolemic Coronary artery disease Continue Coumadin and statin KANDY BiPAP at night Hypothyroid Continue levothyroxine Anxiety Continue diazepam Full code reason for continued hospitalization:awaiting placement Quality Stroke Does the patient have a stroke diagnosis?: No VTE Prior VTE?: Yes VTE Risk Level:: Medical - moderate - high VTE Device Contraindication: Treatment Not Indicated VTE Drug Contraindication: N/A - Med Ordered
[2024-01-16] MEDS: predniSONE 2.5 MG TABLET PO (11:37)
--- NOTE | 2024-01-16 11:47 | HO.WOUND ---
Wound Consult: Initial 78yr old? female admitted to [facility] [place] on 01/14/24 - See progress notes and H&P for detailed history.? Wound consult placed for Right Lateral Leg Hematoma site.? Patient agreeable to assessment and photo documentation.? Chart review revelas Dr. Abdi has been following patient- TT with him today and looking for recommendations at this time - he feels wound bed not yet ready for wound vac at this time. Patient should follow up with outpt wound clinic at time of d/c. Right Lateral Leg Etiology: ??S/P Hematoma Evacuation and follow up debridements Measurements: 17cm x 9cm x 0.3cm Wound Bed: full thickness tissue exposed - overall clean no slough noted - there are scattered areas of hematoma remaining Drainage / Odor: serosanginous Edges: ? irregular and rolled Rema wound: Hyperpigmentation, erythema, swelling and warmth noted Pain: patient reports significant pain Goals of Treatment: ? Suspect wound bed is ready for Negative Pressure Wound Therapy - deferred to Dr. Abdi he feels not ready - given improved appearance of wound bed I recommend continuing with moist gauze dressing changes - with the addition of Wound gel to donate moisture and will hopefully lead to less pain and trauma during dressing changes. TT to Dr. Abdi aware. Recommendations: 1. Turn and Reposition every 2 hours and as needed for patient comfort.? Use pillows or wedges to support off loading positions. 2. Off Load all bony prominences with use of pillows and heel boots if needed.? Apply Preventative foams where needed. ? 3. Monitor for incontinence and moisture control, use barrier creams when needed for prevention and treatment. 4. Provide adequate and supplemental nutrition.? 5. Order low air loss mattress. 6. When applicable maintain blood glucose levels per Providers order. 7. Right Lateral Leg - Elevate on pillows. Cleanse and irrigate with NS, pat dry. Apply skin prep to periwound. Cover wound bed with NS moist gauze and hydrogel impregnated into wound bed. Cover with Dry gauze, ABD pads and gauze wrap. Followed with MARIN wrap. Change every other day. Recommend follow up out patient Wound Clinic at [address] [place] [id number] and to call for an appointment at time of discharge. [phone].? Re-consult wound care Nurse for wound deterioration or wound changes.
[2024-01-16] MEDS: diazePAM 5 MG TABLET PO (13:02)
[2024-01-16] MEDS: Furosemide 40 MG TABLET PO (13:03)
--- NOTE | 2024-01-16 13:36 | MHC.CM.PN ---
DP: PT WILL DC TO [facility] 01/16 AT 10:30 AM VIA [facility]. /RN UPDATED. PT IS AGREEABLE TO THE PLAN. CENTER REQUESTS HOME C-PAP MACHINE BE SENT.
[2024-01-16 17:52] LABS: Troponin-I High Sensitivity 12.2 ng/L (<3.5-17.0)
--- NOTE | 2024-01-16 22:22 | PC.NURSE ---
Addendum entered by Parris Maddox RN 01/16/24 22:31: Provider Homero made aware. Original Note: This RN assumed care of patient at 1900. Pt reporting 8/10 chest pain going through to her back, pt states I am having a PE. Pt is AOx3, Lungs sounds slightly diminished, no wheezing heard, No SOB noted, Respirations even and unlabored. Pt wanted to trial run taking oxygen off, SpO2 reached 94-96% RA, then dropped again, NC 2L ciaran.
[2024-01-16] MEDS: traZODone HCL 100 MG TABLET PO (23:37)
[2024-01-17 03:16] VITALS: BP 137/66; PULSE 83; RESP 18; TEMP 36.1; O2SAT 98
--- NOTE | 2024-01-17 04:20 | PC.NURSE ---
Pt awoke requesting doctor, for he Chest pain. Provider Homero at bedside reassuring pt.
--- NOTE | 2024-01-17 04:30 | PM.EVENT ---
Event Note Date of Service: 01/17/24 Event Note: 4:20 AM - Contacted to notify Mrs. Malik wanted to speak with the doctor. She has been experiencing left-sided chest pain and feels that she has a PE. Her warfarin is currently on hold as her last INR is at goal (1.9, goal 1.5-2.0 due to bleeding diathesis). Patient told me that she has had some events hemoptysis recently (she showed me a picture of it). I provided reassurance telling her that her INR is at goal, her O2 sats are normal on room air and there is not tachycardia. CXR was obtained yesterday to assess for any acute abnormality such as pneumothorax, pleural effusions or pneumonia. She was informed that we cannot obtain a pulmonary CTA to assess for PE as she is allergic to IV contrast. As she has developed some hemoptysis and will obtain pulmonology consult (she also requested this and asked if Dr. Kelly, her mucking machine operator, could see her). For now, we will keep monitoring her INR daily and watch for further events of bleeding. Time Spent With Patient Time: Total time managing care of this patient today ____ minutes.
[2024-01-17] MEDS: oxyCODONE HCl Immed Release 5 MG TABLET PO ×3 (04:53→17:00)
[2024-01-17] MEDS: diazePAM 5 MG TABLET PO ×2 (05:44→13:21)
[2024-01-17] MEDS: Levothyroxine Sodium 25 MCG TABLET PO (05:59)
[2024-01-17 06:51] LABS: INTERNATIONAL NORM RATIO 1.5 (0.9-1.1); Prothrombin Time 18.3 SEC (11.1-13.3)
[2024-01-17 06:53] LABS: D Dimer High Sensitivity 584 NG/ML
[2024-01-17 07:31] VITALS: BP 111/56; PULSE 78; RESP 18; TEMP 36.3; O2SAT 95
[2024-01-17 08:33] LABS: Hematocrit 28.6 % (37.0-47.0); Hemoglobin 9.5 g/dl (12.0-16.0); Mean Corpuscular HGB Conc 33.2 g/dl (31.0-35.0); Mean Corpuscular Hemoglobin 33.3 pg (27.0-33.0); Mean Corpuscular Volume 100.4 fL (80.0-98.0); Mean Platelet Volume 10.6 fL (9.4-12.3); NRBC Pct Auto 0.2 /100WBC (0.0-0.2); Platelet Count 284 X10*3/uL (160-400); Red Blood Count 2.85 X10*6/uL (4.20-5.50); Red Cell Distribution Width 13.1 % (11.0-16.0); White Blood Count 11.8 X10*3/uL (4.8-10.8)
[2024-01-17] MEDS: Chlorhexidine Gluc Oral Rinse 15 ML MOUTHWASH BUCCAL (08:45)
[2024-01-17] MEDS: Potassium Chloride Packet 20 MEQ PACKET PO (08:45)
[2024-01-17] MEDS: Metoprolol Succinate ER 50 MG TAB.ER.24H PO (08:45)
[2024-01-17] MEDS: Loratadine 10 MG TABLET PO (08:45)
[2024-01-17] MEDS: Ferrous Sulfate 324 MG TABLET.DR PO (08:46)
[2024-01-17] MEDS: Docusate Sodium 100 MG CAPSULE PO (08:46)
[2024-01-17] MEDS: Doxycycline Monohydrate 100 MG CAPSULE PO (08:46)
[2024-01-17] MEDS: Montelukast Sodium 10 MG TABLET PO (08:46)
[2024-01-17] MEDS: Furosemide 40 MG TABLET 80 MG PO (08:46)
[2024-01-17] MEDS: 0.9 % Sodium Chloride Flush 3 ML SYRINGE IVFLUSH (08:48)
--- NOTE | 2024-01-17 08:53 | P.CONPL_ITS ---
History of Present Illness History of Present Illness Consult date: 01/17/24 Chief complaint: Minor hemoptysis Narrative: 78-year-old lady with under re artery disease the failure, remote history of subarachnoid hemorrhage,: Hypoxic and Acute respiratory failure to. The pending history lung CT since status post left upper lobectomy and chemo/XRT nephrostomy labia syndrome, prior history of PE anticoagulated with Coumadin hospitalized on 01/14/2024 with possible surgical site cellulitis after recent discharge to intermediate facility for prior visit for leg hematoma drainage. Patient observed on telemetry juan and was noted to have an episode of minor hemoptysis on 01/16/2024 with no recurrence. Her Coumadin was stopped and her INR today is 1.5. No further recurrence of hemoptysis. Patient does complain of left-sided chest pain ongoing for 2-3 days and is concerned for possible pulmonary embolism. Of note, she does have allergy to IV contrast dye. Review of Systems 2 Constitutional: Constitutional: Denies daytime sleepiness, Denies excessive sweating, Denies fatigue, Denies fever(s), Denies lethargy, Denies malaise, Denies night sweats, Denies snoring and Denies weight loss Eyes: Eyes: Denies blurry vision and Denies itchy eyes ENT: Denies nasal congestion, Denies post nasal drip, Denies sinus pain, Denies sinus pressure and Denies other ( Thrush) Cardiovascular: Cardiovascular: Reports chest pain, Denies pedal edema, Denies dyspnea, Denies orthopnea and Denies paroxysmal nocturnal dyspnea Respiratory: Respiratory: Denies cough, Reports hemoptysis, Denies excessive phlegm production, Denies dyspnea, Denies snoring and Denies wheezing Gastrointestinal: Gastrointestinal: Denies abdominal pain and Denies heartburn Musculoskeletal: Musculoskeletal: Denies myalgias, Denies arthralgias and Denies joint swelling Integumentary/Breasts: Skin/Breast: Denies rash Neurologic: Denies memory loss and Denies seizure-like activity Psychiatric: Psychiatric: Denies abnormal sleep pattern, Denies anxiety and Denies memory loss Endocrine: Endocrine: Denies excessive sweating, Denies fatigue and Denies heat intolerance Hematologic/Lymphatic: Hematologic/Lymphatic: Denies easy bruising Allergic/Immunologic: Allergic/Immunologic: Denies itchy eyes, Denies seasonal rhinorrhea and Denies wheezing PMFSH Past Medical History Medical History (Updated 01/17/24 @ 08:57 by Leeroy Tellez MD) Open wound Warfarin anticoagulation Complex sleep apnea syndrome Chronic hypercapnic respiratory failure Leg pain Anemia Tachycardia DVT (deep venous thrombosis) COPD (chronic obstructive pulmonary disease) Compression fracture of body of thoracic vertebra ASD (atrial septal defect) Pleuritic chest pain History of COVID-19 Chronic anticoagulation Hypothyroidism GERD (gastroesophageal reflux disease) Hyperlipidemia Hypertension Factor 5 Leiden mutation, heterozygous History of non-ST elevation myocardial infarction (NSTEMI) Hypoxia Anxiety PTSD (post-traumatic stress disorder) Hemoptysis Dyspnea Tracheobronchitis CLARA positive Diverticulitis Allergic bronchitis (HFpEF) heart failure with preserved ejection fraction Subarachnoid bleed Insomnia Anti-phospholipid antibody syndrome Hypogammaglobulinemia Chronic respiratory failure Arterial insufficiency of lower extremity Complex regional pain syndrome i of right lower limb Post herpetic neuralgia Pulmonary hypertension Pericardial effusion Pulmonary emboli Pleural effusion Radiation fibrosis of lung Pneumonitis Pulmonary nodules KANDY treated with BiPAP Lung cancer Family History Family History Sister No problems noted. Mother Cardiovascular disease Daughter Tachycardia Other KANDY (obstructive sleep apnea) Surgical History Surgical History (Updated 01/17/24 @ 00:02 by Anabella Raza) History of colonoscopy History of lung surgery History of tonsillectomy History of hysterectomy S/P mitral valve clip implantation History of cardiac cath Social History Social History Household Members: None Housing: Jail Do you presently have visiting nurse or other home services: No Unable to assess alcohol history related to: Unknown Alcohol intake: former Comment: stand by assist with ambulation Patient Tobacco Use Status: Never used Tobacco Second Hand Smoke Exposure: No Advance Directives Date on File: 06/15/22 service: No Current occupational status: retired Meds Allergies Allergy/AdvReac Type Severity Reaction Status Date / Time morphine Allergy Severe Itching Verified 01/14/24 01:18 avocado [AVOCADO] Allergy Mild ITCHY Verified 01/14/24 01:18 THROAT, RASH azithromycin [AZITHROMYCIN] Allergy Mild ITCHY Verified 01/14/24 01:18 THROAT, RASH barium iodide [BARIUM IODIDE] Allergy Mild ITCHY Verified 01/14/24 01:18 THROAT, RASH barium sulfate Allergy Mild Itch Verified 01/14/24 01:18 bee pollen [BEE STINGS] Allergy Mild ITCHY Verified 01/14/24 01:18 THROAT, RASH ciprofloxacin [From CIPRO] Allergy Mild ITCHY Verified 01/14/24 01:18 THROAT, RASH clarithromycin [From BIAXIN] Allergy Mild ITCHY Verified 01/14/24 01:18 THROAT, RASH diatrizoate meglumine Allergy Mild ITCHY Verified 01/14/24 01:18 [From GASTROGRAFIN] THROAT, RASH diatrizoate sodium Allergy Mild ITCHY Verified 01/14/24 01:18 [From GASTROGRAFIN] THROAT, RASH diclofenac [From VOLTAREN] Allergy Mild ITCHY Verified 01/14/24 01:18 THROAT, RASH erythromycin base Allergy Mild ITCHY Verified 01/14/24 01:18 [ERYTHROMYCIN BASE] THROAT, RASH gentamicin [GENTAMICIN] Allergy Mild ITCHY Verified 01/14/24 01:18 THROAT, RASH Iodinated Contrast Media Allergy Mild ITCHY Verified 01/14/24 01:18 [IVP DYE] THROAT, RASH levofloxacin [From LEVAQUIN] Allergy Mild ITCHY Verified 01/14/24 01:18 THROAT, RASH metronidazole [From FLAGYL] Allergy Mild ITCHY Verified 01/14/24 01:18 THROAT, RASH moxifloxacin [From AVELOX] Allergy Mild ITCHY Verified 01/14/24 01:18 THROAT, RASH Penicillins [PENICILLINS] Allergy Mild ITCHY Verified 01/14/24 01:18 THROAT, RASH shrimp [SHRIMP] Allergy Mild ITCHY Verified 01/14/24 01:18 THROAT, RASH Sulfa (Sulfonamide Allergy Mild ITCHY Verified 01/14/24 01:18 Antibiotics) THROAT, [SULFA (SULFONAMIDE RASH ANTIBIOTICS)] vancomycin [VANCOMYCIN] Allergy Mild ITCHY Verified 01/14/24 01:18 THROAT, RASH clindamycin AdvReac Intermediate Unknown Verified 01/14/24 01:18 Active Medications: Current Medications Acetaminophen (Acetaminophen 325 Mg Tablet) 650 mg PO Q6H PRN PRN Reason: Pain, Mild (Pain Scale 1-3), fever or headache Acyclovir (Acyclovir 5 % Oint 15 Gm Tube) 1 gm TOPICAL 5XD MATHEW Last Admin: 01/17/24 05:59 Dose: Not Given Al Hydroxide/Mg Hydroxide (Magnesium Hydrox/Alum Hydrox 30 Ml Oral.Susp) 30 ml PO Q4H PRN PRN Reason: GI Upset Albuterol Sulfate (Albuterol Sulfate (0.083%) 2.5 Mg/3 Ml Vial.Neb) 2.5 mg INHALE Q6H PRN PRN Reason: shortness of breath or wheezing Artificial Tears (Artificial Tears 15 Ml Drops) 2 drop EYE-BOTH Q4H PRN PRN Reason: Dry Eyes Last Admin: 01/15/24 09:40 Dose: 2 drop Atorvastatin Calcium (Atorvastatin Calcium 40 Mg Tablet) 40 mg PO MoWeFr@2100 [facility] Last Admin: 01/15/24 19:47 Dose: 40 mg Calcium Carbonate (Calcium Carbonate 750 Mg Tab.Chew) 750 mg PO Q4H PRN PRN Reason: Heartburn Chlorhexidine Gluconate (Chlorhexidine Gluc Oral Rinse 15 Ml Mouthwash) 15 ml BUCCAL BID [facility] Last Admin: 01/17/24 08:45 Dose: 15 ml Diazepam (Diazepam 5 Mg Tablet) 5 mg PO Q8H PRN PRN Reason: Anxiety Last Admin: 01/17/24 05:44 Dose: 5 mg Docusate Sodium (Docusate Sodium 100 Mg Capsule) 100 mg PO DAILY [facility] Last Admin: 01/17/24 08:46 Dose: 100 mg Doxycycline Monohydrate (Doxycycline Monohydrate 100 Mg Capsule) 100 mg PO BID [facility] Last Admin: 01/17/24 08:46 Dose: 100 mg Ferrous Sulfate (Ferrous Sulfate 324 Mg Tablet.Dr) 324 mg PO DAILY [facility] Last Admin: 01/17/24 08:46 Dose: 324 mg Furosemide (Furosemide 40 Mg Tablet) 40 mg PO DAILY@1200 MATHEW; Protocol Last Admin: 01/16/24 13:03 Dose: 40 mg Furosemide (Furosemide 40 Mg Tablet) 80 mg PO DAILY [facility]; Protocol Last Admin: 01/17/24 08:46 Dose: 80 mg Levothyroxine Sodium (Levothyroxine Sodium 25 Mcg Tablet) 25 mcg PO MOTUWETHFR@0600 [facility] Last Admin: 01/17/24 05:59 Dose: 25 mcg Levothyroxine Sodium (Levothyroxine Sodium 50 Mcg Tablet) 50 mcg PO SUSA@0600 [facility] Lidocaine HCl (Lidocaine 4 % Cream Kit) 1 appl TOPICAL ONCE PRN; Protocol PRN Reason: right shoulder pain Last Admin: 01/15/24 13:05 Dose: 1 appl Loratadine (Loratadine 10 Mg Tablet) 10 mg PO DAILY [facility] Last Admin: 01/17/24 08:45 Dose: 10 mg Magnesium Hydroxide (Milk Of Magnesia 30 Ml Oral.Susp) 30 ml PO DAILY PRN PRN Reason: Constipation Meclizine HCl (Meclizine Hcl 25 Mg Tablet) 25 mg PO Q8H PRN PRN Reason: dizziness Melatonin (Melatonin 3 Mg Tablet) 6 mg PO BEDTIME PRN PRN Reason: Insomnia Metoprolol Succinate (Metoprolol Succinate Er 50 Mg Tab.Er.24h) 50 mg PO BID [facility]; Protocol Last Admin: 01/17/24 08:45 Dose: 50 mg Montelukast Sodium (Montelukast Sodium 10 Mg Tablet) 10 mg PO DAILY [facility] Last Admin: 01/17/24 08:46 Dose: 10 mg Patient Own Medication ( Advair Hfa 230mcg/21 Mcg) 2 puff INHALE RBID [facility] Last Admin: 01/16/24 20:21 Dose: 2 puff Nystatin (Nystatin Powder 15 Gm Bottle) 1 appl TOPICAL BID [facility]; Protocol Last Admin: 01/16/24 21:45 Dose: Not Given Ondansetron HCl (Ondansetron Hcl 4 Mg/2 Ml Vial) 4 mg IVPUSH Q4H PRN PRN Reason: Nausea and Vomiting Oxycodone HCl (Oxycodone Hcl Immed Release 5 Mg Tablet) 5 mg PO Q4H PRN PRN Reason: mrate pain Last Admin: 01/17/24 04:53 Dose: 5 mg Potassium Chloride (Potassium Chloride Packet 20 Meq Packet) 20 meq PO DAILY [facility] Last Admin: 01/17/24 08:45 Dose: 20 meq Prednisone (Prednisone 2.5 Mg Tablet) 2.5 mg PO Q48H [facility] Last Admin: 01/16/24 11:37 Dose: 2.5 mg Sodium Chloride (0.9 % Sodium Chloride Flush 3 Ml Syringe) 3 ml IVFLUSH QSHIFT [facility] Last Admin: 01/17/24 08:48 Dose: 3 ml Trazodone HCl (Trazodone Hcl 100 Mg Tablet) 100 mg PO BEDTIME [facility] Last Admin: 01/16/24 23:37 Dose: 100 mg Warfarin Sodium (Warfarin Sodium 2 Mg Tablet) 2 mg PO DAILY@1800 [facility] Home Medications ?Medication ?Instructions ?Recorded ?Confirmed ?Last Taken ?Type levothyroxine 25 mcg tablet 25 mcg PO MOTUWETHFR@0600 06/14/22 01/14/24 01/04/24 History (Synthroid) CPAP (CPAP Machine/Device) 06/30/22 11/20/23 Unknown History Oxygen Home Use 06/30/22 11/20/23 Unknown History nebulizers 06/30/22 11/20/23 Unknown History epinephrine 0.3 mg/0.3 mL 0.3 mg IM USEASDIRECTD PRN 07/14/22 01/14/24 Unknown History injection, auto-injector Allergic Reaction prednisone 2.5 mg tablet 2.5 mg PO Q48H 08/09/23 01/14/24 01/04/24 History diazepam 5 mg tablet 5 mg PO Q8H PRN Anxiety 01/05/24 01/14/24 Unknown History furosemide 40 mg tablet 40 mg PO DAILY@1200 01/05/24 01/14/24 01/04/24 History furosemide 40 mg tablet 80 mg PO DAILY 01/05/24 01/14/24 01/04/24 History levothyroxine 25 mcg tablet 50 mcg PO SUSA@0600 01/05/24 01/14/24 01/04/24 History (Synthroid) nystatin 100,000 unit/gram topical 1 appl topical BID 01/05/24 01/14/24 01/04/24 History powder rosuvastatin 10 mg tablet 10 mg PO MOWEFR 01/05/24 01/14/24 01/04/24 History warfarin 2.5 mg tablet (Jantoven) 2.5 mg PO DAILY@1800 01/05/24 01/14/24 01/13/24 History docusate sodium 100 mg capsule 100 mg PO DAILY 01/14/24 01/14/24 Unknown History ferrous sulfate 325 mg (65 mg 325 mg PO DAILY 01/14/24 01/14/24 Unknown History iron) tablet meclizine 25 mg tablet 25 mg PO Q8H PRN dizziness 01/14/24 01/14/24 Unknown History methyl salicylate 15 %-menthol 10 1 appl topical DAILY PRN Pain 01/14/24 01/14/24 Unknown History % topical cream (Muscle Rub) oxycodone 5 mg tablet 5 mg PO Q4H PRN Pain 01/14/24 01/14/24 Unknown History Physical Exam 2 Vital Signs: Vital Signs: Last Vital Signs Temp 97.3 F 01/17/24 07:31 Pulse 78 01/17/24 07:31 Resp 18 01/17/24 07:31 BP 111/56 L 01/17/24 07:31 Pulse Ox 95 01/17/24 07:31 O2 Del Method Room Air 01/17/24 07:31 O2 Flow Rate 4 01/16/24 20:00 Oxygen Flow Rate 2 01/14/24 01:16 BMI result Body Mass Index 26.1 Const: General: no acute distress and alert Nutritional Appearance: not obese Orientation/consciousness: Other orientation findings ( oriented) HEENT: Head: Yes atraumatic Eyes: General: appearance normal, both eyes and all related structures S clerae: sclerae normal EOM: EOMs intact bilaterally Neck: Neck: Yes supple Lymphatic: no lymphadenopathy noted Resp: Effort & Inspection: normal respiratory effort and no use of accessory muscles Auscultation: clear to auscultation bilaterally Cardio: Rate: regular rate Rhythm: regular rhythm Heart sounds: no gallops, no murmurs and no rubs Skin: General skin exam: other ( warm) Extrem: General: No clubbing, No cyanosis and No edema Results Laboratory Findings 01/17/24 07:56 01/16/24 05:34 ABG, PT/INR, D-dimer: PT/INR, D-dimer PT 18.3 SEC (11.1-13.3) H D 01/17/24 05:40 INR 1.5 (0.9-1.1) H 01/17/24 05:40 Abnormal lab findings: Abnormal Labs 01/14/24 01/14/24 01/15/24 07:53 07:54 05:01 WBC 11.0 H RBC 3.02 L 2.63 L Hgb 10.0 L 8.8 L Hct 30.2 L 26.9 L MCV 100.0 H 102.3 H MCH 33.1 H 33.5 H Immature Gran % (Auto) 1.3 H Neut % (Auto) 73.4 H Lymph % (Auto) 9.7 L [place] % (Auto) 13.1 H Lymph # (Auto) 1.1 L [place] # (Auto) 1.4 H Abs Immat Gran (auto) 0.14 H Absolute Nucleated RBC PT 25.9 H 28.2 H INR 2.1 H 2.3 H APTT 44.3 H Potassium 3.1 L Chloride 95 L Carbon Dioxide 33 H 34 H Anion Gap 9 L BUN 22 H 18 H Calcium 10.4 H Total Protein 6.4 L Albumin 3.3 L 01/16/24 01/17/24 01/17/24 05:34 05:40 07:56 WBC 11.8 H RBC 2.56 L 2.85 L Hgb 8.6 L 9.5 L Hct 25.8 L 28.6 L MCV 100.8 H 100.4 H MCH 33.6 H 33.3 H Immature Gran % (Auto) Neut % (Auto) Lymph % (Auto) [place] % (Auto) Lymph # (Auto) [place] # (Auto) Abs Immat Gran (auto) Absolute Nucleated RBC 0.020 H 0.020 H PT 22.9 H 18.3 H D INR 1.9 H 1.5 H APTT Potassium Chloride Carbon Dioxide 33 H Anion Gap 8 L BUN 20 H Calcium Total Protein Albumin Assessment and Plan (1) Cough with hemoptysis: Status: Acute (2) COPD (chronic obstructive pulmonary disease): Qualifiers: COPD type: chronic bronchitis Chronic bronchitis type: simple Q ualified Code(s): J41.0 - Simple chronic bronchitis Status: Acute Plan Impression: 78-year-old lady with complicated past medical history including antiphospholipid syndrome, prior PE/DVT anticoagulated with Coumadin, underlying advanced COPD recently hospitalized with like hematoma now with a self-limited episode of minor hemoptysis with no recurrence. Recommendations: Unable to obtain CTA secondary to allergy to IV dye. Consider V/Q scan to rule out pulmonary embolism/alleviate patient's concern. Consider restarting anticoagulation. Procedures Date of Service Date of Service: 01/17/24
[2024-01-17] MEDS: Nystatin Powder 15 GM BOTTLE 1 APPL TOPICAL (12:08)
[2024-01-17] MEDS: Acyclovir 5 % Oint 15 GM TUBE TOPICAL (12:09)
--- NOTE | 2024-01-17 12:11 | MHC.CM.PN ---
Addendum entered by Akosua Ochoa 01/17/24 14:27: DP: PT HAS BEEN MEDICALLY CLEARED FOR DC TO STR AT [facility]. CENTER UPDATED. BLS TRANSPORT BOOKED FOR 4:30 PM [facility]IA [facility]. PT IS AGREEABLE TO PLAN. Original Note: PT'S DC HAS BEEN POSTPONED. PT SEEN BY PULMONOLOGY WHO HAS ORDERED A V/Q SCAN TO R/O PE. [facility] AND BLS TRANSPORT RESCHEDULED FOR 4:30 PM. RN AWARE.
[2024-01-17] MEDS: Furosemide 40 MG TABLET PO (12:23)
--- NOTE | 2024-01-17 14:07 | PM.DS ---
DS: Providers Provider Date of Service: 01/17/24 Date of admission: 01/14/24 12:00 Primary care physician: Caitlyn Bowie MD Consults: 01/14/24 11:59 Consult to General Surgery Routine Consulting Provider: [facility] Reason for consultation: infected rle wound 01/15/24 00:11 Consult to Wound Care Routine Reason for consultation: right leg wound Has provider been notified: Yes 01/17/24 06:30 Consult to Pulmonology Routine Consulting Provider: [facility] Reason for consultation: Hemoptysis Has provider been notified: No DS: Diagnosis Discharge Diagnosis (1) Cough with hemoptysis: Status: Acute (2) COPD (chronic obstructive pulmonary disease): Status: Acute (3) Open wound: Status: Acute (4) Leg wound, right: Status: Acute (5) Complex medical condition: Status: Acute DS: Summary Hospital Course Hospital Course: from initial hpi: 78F PMH CAD s/p NSTEMI, HFpEF, hx of subarachnoid hemorrhage, chronic hypoxic and hypercapneic respiratory failure due to COPD, pulmonary hypertension, on 2L supplemental home O2 prn, KANDY on BiPAP at night, hx of non-small cell lung cancer s/p chemo, radiation, and left upper lobe lobectomy, antiphospholipid antibody syndrome, hx of DVT/PE on Coumadin, and anxiety. She was recently discharged from [facility] after hospitalization from 01/04/24 to 01/09/24 for traumatic hematoma of the right lower extremity underwent evacuation by vascular surgery given prophylactic doxycycline, restarted on Coumadin, discharged to care home facility. On day prior to presentation patient started to notice worsening erythema at wound site was concerned about infection so was transferred to ED in ED was seen by General surgery performed bedside debridement. Patient denies any fevers or chills or increased pain to site. hospital course: Patient was admitted for right lower extremity wound site cellulitis. She was seen by General surgery who performed debridement at bedside and recommended continued daily dressings. She was treated with IV doxycycline and cellulitis mostly resolved she will continue 5 more days of p.o. doxycycline. and follow up with wound clinic. For history of DVT/PE due to antiphospholipid syndrome complicated by bleeding diathesis with possible platelet dysfunction was continued on Coumadin with a goal of INR 1.5-2. For chronic hypoxic and hypercapnic respiratory failure due to COPD and pulmonary hypertension she was stable on 2 L. For chronic diastolic CHF she was continued on Lasix and appeared euvolemic. Coronary artery disease she was continued on Coumadin statin. For KANDY she was on BiPAP at night. For hypothyroidism she was continued on Synthroid. For anxiety she was continued on diazepam. Patient is feeling better will be discharged back to care home facility. She was evaluated by insurance claims supervisor for reported hemoptysis. a V\Q scan was done showing negative result. She is on Warfarin with INR supratherapeutic at 2.5 that trended down to 1.5 as it was held and restarted. To continue with home dose of 2.5mg daily and recheck INR Monday. Time Attestation Discharge Coordination Time (in mins): 38 Quality: Safe Use of Opioids Does Pt have an Active Cancer Diagnosis on the Problem List?: No Quality: Stroke Does the patient have a stroke diagnosis?: No Physical Exam Vital Signs: Vital Signs: Last Vital Signs Temp 97.3 F 01/17/24 07:31 Pulse 78 01/17/24 07:31 Resp 18 01/17/24 07:31 BP 111/56 L 01/17/24 07:31 Pulse Ox 95 01/17/24 07:31 O2 Del Method Room Air 01/17/24 07:31 O2 Flow Rate 4 01/16/24 20:00 Oxygen Flow Rate 2 01/14/24 01:16 BMI result Body Mass Index 26.1 Const: Other: Constitutional : Awake, interactive, not in distress Neck : Normal inspection, Supple Cardiovascular : RRR, no JVP, no lower extremity edema Respiratory : good bilateral air entry, no crackles, wheezes or rhonchi Gastrointestinal: soft, lax, Normal bowel sounds, Non tender Skin : Warm, Dry, open RLE wound with granulation tissue and resolving surrounding erythema. Neurological : Alert & oriented x3, No focal deficit DS: Data Data Completed and Pending Completed studies during hospitalization [Text1]: Procedures Assistance with Respiratory Ventilation, Less than 24 Consecutive Hours, Continuous Positive Airway Pressure (01/04/24) Excision of Right Lower Leg Skin, External Approach (01/04/24) Labs on day of discharge: Laboratory Results - last 24 hr 01/16/24 01/17/24 01/17/24 17:13 05:40 05:40 WBC RBC Hgb Hct MCV MCH MCHC RDW Plt Count MPV Absolute Nucleated RBC Nucleated RBC % (auto) PT 18.3 H D INR 1.5 H D-Dimer High Sensitivty 584 Cancelled Hold Blue Top SEE NOTE Troponin I High Sens 12.2 01/17/24 07:56 WBC 11.8 H RBC 2.85 L Hgb 9.5 L Hct 28.6 L MCV 100.4 H MCH 33.3 H MCHC 33.2 RDW 13.1 Plt Count 284 MPV 10.6 Absolute Nucleated RBC 0.020 H Nucleated RBC % (auto) 0.2 PT INR D-Dimer High Sensitivty Hold Blue Top SEE NOTE Troponin I High Sens Imaging Chest x-ray: Radiologist's impression: ITS Impressions Chest X-Ray 01/16/24 17:24 IMPRESSION: No significant change since 01/12/2024. Pulmonary Perfusion Imaging 01/17/24 12:05 IMPRESSION: Based on perfusion only modified PIOPED 2 criteria, nondiagnostic for pulmonary thromboembolism. Discharge Plan Discharge Anticipated Discharge Date/Time: 01/16/24 10:39 Patient Disposition: er [facility] Discharge Diagnosis: cellulitis Referrals: Caitlyn Bowie MD [Primary Care Provider] - 1 Week Discharge Medications: Continued albuterol sulfate 2.5 mg /3 mL (0.083 %) solution for nebulization 2.5 mg inhalation Q6H PRN (Reason: shortness of breath or wheezing) 30 Days Qty: 180 11RF Advair HFA 230-21 mcg/actuation HFA aerosol inhaler 2 puff inhalation BID 90 Days Qty: 36 4RF potassium chloride 20 mEq packet 20 meq PO DAILY Qty: 50 3RF chlorhexidine gluconate 0.12 % mouthwash 15 ml buccal BID 14 Days Qty: 420 1RF levothyroxine [Synthroid] 25 mcg tablet 25 mcg PO MOTUWETHFR@0600 furosemide 40 mg tablet 80 mg PO DAILY nystatin 100,000 unit/gram powder 1 appl topical BID diazepam 5 mg tablet 5 mg PO Q8H PRN (Reason: Anxiety) furosemide 40 mg Tablet 40 mg PO DAILY@1200 warfarin [Jantoven] 2.5 mg Tablet 2.5 mg PO DAILY@1800 levothyroxine [Synthroid] 25 mcg Tablet 50 mcg PO SUSA@0600 rosuvastatin 10 mg tablet 10 mg PO MOWEFR doxycycline monohydrate 100 mg Capsule 100 mg PO Q12H Qty: 10 0RF Rx Instructions: End date: 01/[address] [place] ferrous sulfate 325 mg (65 mg iron) Tablet 325 mg PO DAILY docusate sodium 100 mg Capsule 100 mg PO DAILY Muscle Rub 15-10 % Cream 1 appl TOPICAL DAILY PRN (Reason: Pain) Rx Instructions: shoulder or painful area meclizine 25 mg tablet 25 mg PO Q8H PRN (Reason: dizziness) (DME) nebulizers Misc See Rx Instructions .Route Rx Instructions: As directed (DME) CPAP Machine/Device Device See Rx Instructions .Route Rx Instructions: As directed (DME) Oxygen Home Use Kit See Rx Instructions .Route Rx Instructions: As directed epinephrine 0.3 mg/0.3 mL auto-injector 0.3 mg IM USEASDIRECTD PRN (Reason: Allergic Reaction) metoprolol succinate [Toprol XL] 50 mg tablet extended release 24 hr 50 mg PO BID Qty: 120 3RF prednisone 2.5 mg tablet 2.5 mg PO Q48H levocetirizine 5 mg tablet 5 mg PO DAILY 90 Days Qty: 90 3RF trazodone 50 mg tablet 100 mg PO BEDTIME Qty: 180 3RF montelukast 10 mg tablet 10 mg PO DAILY Qty: 90 3RF Changed oxycodone 5 mg tablet 5 mg PO Q4H PRN (Reason: Pain) Qty: 20 0RF Rx Instructions: Partial Fill upon patient request. Discontinued Santyl 250 unit/gram Ointment 1 appl TOPICAL DAILY PRN (Reason: soiled/no longer intact) Santyl 250 unit/gram Ointment 1 appl TOPICAL DAILY Discharge Orders: Discharge Order (Routine); Ordered 01/17/24 Ordered By: Apryl Singh Diet: Advance to usual diet Activity on Discharge: As tolerated Stand Alone Forms: Patient Portal Discharge page Print Language: [place] Care Plan Goals: recovery Health Concerns: cellulitis, wound Plan of Treatment: 5 more days po doxy, daily dressing change:wet to dry dressing with saline gauze on right leg wounds. change daily and then wrap leg lightly with wild bandage. can premedicate with po pain meds. follow up with wound care physical therapy Assessment: see above
[2024-01-17] MEDS: Warfarin Sodium 2.5 MG TABLET PO (14:37)
[2024-01-17 15:21] VITALS: BP 124/58; PULSE 84; RESP 18; TEMP 36.8; O2SAT 98
== END 2024-01-17 18:49 | disposition skilled nursing facility (03) | DRG 603 ==
LOC: HO.ED 10:58 → HO.EDOVER 12:10 → HO.S3 14:21
PROVIDERS: Physician Assistant Medical; Admitting Provider Internal Medicine; Emergency Provider Emergency Medicine; PCP Internal Medicine; Visit Provider Student in an Organized Health Care Education/Training Program
DX: L03.115 Cellulitis of right lower limb (principal); D68.51 Activated protein C resistance; J96.11 Chronic respiratory failure with hypoxia; J96.12 Chronic respiratory failure with hypercapnia; I96 Gangrene, not elsewhere classified; I50.32 Chronic diastolic (congestive) heart failure; R04.2 Hemoptysis; I25.10 Atherosclerotic heart disease of native coronary artery without angina pectoris; G47.33 Obstructive sleep apnea (adult) (pediatric); I27.20 Pulmonary hypertension, unspecified; E03.9 Hypothyroidism, unspecified; F43.10 Post-traumatic stress disorder, unspecified; J44.9 Chronic obstructive pulmonary disease, unspecified; F41.9 Anxiety disorder, unspecified; E87.6 Hypokalemia; S80.11XS Contusion of right lower leg, sequela; W22.8XXS Striking against or struck by other objects, sequela; Z86.718 Personal history of other venous thrombosis and embolism; Z86.711 Personal history of pulmonary embolism; Z99.81 Dependence on supplemental oxygen; Z91.041 Radiographic dye allergy status; Z90.2 Acquired absence of lung [part of]; Z79.01 Long term (current) use of anticoagulants; Z79.52 Long term (current) use of systemic steroids; Z79.890 Hormone replacement therapy; Z79.899 Other long term (current) drug therapy
CPT/HCPCS: 36415; 71045; 78580; 80048; 80053; 80076; 84132; 84484; 85025; 85027; 85379; 85610; 85730; 93005; 94640; 97162; 99285; A9540

== ENCOUNTER 2024-01-14 12:00 | Outpatient (BNV) | payer MEDICARE, SELFPAY | END 2024-01-16 17:31 | PROVIDERS: Admitting Provider Internal Medicine; Emergency Provider Emergency Medicine; PCP Internal Medicine; Visit Provider Internal Medicine Cardiovascular Disease | DX: R94.31 Abnormal electrocardiogram [ECG] [EKG] (principal) | CPT/HCPCS: 93010 ==

== ENCOUNTER → 2024-01-14 12:00 | Outpatient (BNV) | payer MEDICARE, SELFPAY | PROVIDERS: Admitting Provider Internal Medicine; Emergency Provider Emergency Medicine; PCP Internal Medicine; Visit Provider Surgery | DX: T14.8XXA Other injury of unspecified body region, initial encounter (principal) | CPT/HCPCS: 10140; 99024; 99222 ==

== ENCOUNTER → 2024-01-14 12:00 | Outpatient (BNV) | payer MEDICARE, SELFPAY | PROVIDERS: Admitting Provider Internal Medicine; Emergency Provider Emergency Medicine; PCP Internal Medicine; Visit Provider Internal Medicine Pulmonary Disease | DX: R04.2 Hemoptysis (principal); J41.0 Simple chronic bronchitis | CPT/HCPCS: 99222 ==

== ENCOUNTER → 2024-01-14 12:00 | Outpatient (BNV) | payer MEDICARE, SELFPAY | PROVIDERS: Admitting Provider Internal Medicine; Emergency Provider Emergency Medicine; PCP Internal Medicine; Visit Provider Internal Medicine | DX: R04.2 Hemoptysis (principal); J41.0 Simple chronic bronchitis; T14.8XXA Other injury of unspecified body region, initial encounter; S81.801D Unspecified open wound, right lower leg, subsequent encounter; Z78.9 Other specified health status | CPT/HCPCS: 99223; 99232; 99239; 99499 ==

== ENCOUNTER 2024-01-25 10:59 | Outpatient (AMB) | payer MEDICARE, SELFPAY ==
[2024-01-25 11:00] VITALS: BP 102/58; PULSE 79; O2SAT 99
--- NOTE | 2024-01-25 11:00 | A.OFFVIS_ITS ---
Vital Signs 01/25/24 11:00 BP 102/58 L Blood Pressure Location Rt brachial Pulse 79 Pulse Source Doppler Pulse Oximetry (%) 99 Oxygen Delivery Method Nasal Cannula Oxygen Flow Rate 2 Intake Visit Reasons: Dyspnea Allergies morphine Allergy (Severe, Verified 01/14/24 01:18) Itching avocado [AVOCADO] Allergy (Mild, Verified 01/14/24 01:18) ITCHY THROAT, RASH azithromycin [AZITHROMYCIN] Allergy (Mild, Verified 01/14/24 01:18) ITCHY THROAT, RASH barium iodide [BARIUM IODIDE] Allergy (Mild, Verified 01/14/24 01:18) ITCHY THROAT, RASH barium sulfate Allergy (Mild, Verified 01/14/24 01:18) Itch bee pollen [BEE STINGS] Allergy (Mild, Verified 01/14/24 01:18) ITCHY THROAT, RASH ciprofloxacin [From CIPRO] Allergy (Mild, Verified 01/14/24 01:18) ITCHY THROAT, RASH clarithromycin [From BIAXIN] Allergy (Mild, Verified 01/14/24 01:18) ITCHY THROAT, RASH diatrizoate meglumine [From GASTROGRAFIN] Allergy (Mild, Verified 01/14/24 01:18) ITCHY THROAT, RASH diatrizoate sodium [From GASTROGRAFIN] Allergy (Mild, Verified 01/14/24 01:18) ITCHY THROAT, RASH diclofenac [From VOLTAREN] Allergy (Mild, Verified 01/14/24 01:18) ITCHY THROAT, RASH erythromycin base [ERYTHROMYCIN BASE] Allergy (Mild, Verified 01/14/24 01:18) ITCHY THROAT, RASH gentamicin [GENTAMICIN] Allergy (Mild, Verified 01/14/24 01:18) ITCHY THROAT, RASH Iodinated Contrast Media [IVP DYE] Allergy (Mild, Verified 01/14/24 01:18) ITCHY THROAT, RASH levofloxacin [From LEVAQUIN] Allergy (Mild, Verified 01/14/24 01:18) ITCHY THROAT, RASH metronidazole [From FLAGYL] Allergy (Mild, Verified 01/14/24 01:18) ITCHY THROAT, RASH moxifloxacin [From AVELOX] Allergy (Mild, Verified 01/14/24 01:18) ITCHY THROAT, RASH Penicillins [PENICILLINS] Allergy (Mild, Verified 01/14/24 01:18) ITCHY THROAT, RASH shrimp [SHRIMP] Allergy (Mild, Verified 01/14/24 01:18) ITCHY THROAT, RASH Sulfa (Sulfonamide Antibiotics) [SULFA (SULFONAMIDE ANTIBIOTICS)] Allergy (Mild, Verified 01/14/24 01:18) ITCHY THROAT, RASH vancomycin [VANCOMYCIN] Allergy (Mild, Verified 01/14/24 01:18) ITCHY THROAT, RASH clindamycin Adverse Reaction (Intermediate, Verified 01/14/24 01:18) Unknown HPI Comments Details: The patient is a 78 y/o woman with a complicated history which includes: COPD, KANDY, pulmonary HTN, history pulmonary emboli on chronic anticoagulation, lung CA Stage IIIA s/o neoadjuvant chemoradiation and Left upper lobe lobectomy. She did have a CT scan today that I personally reviewed. Has not been personally read by the radiologist. Based on my reading she has some pulmonary nodules some that are new 4 mm in the right major fissure area. Other nodules are stable. Other post operative and pulmonary fibrotic changes stable. The patient should get a CT scan in 6 months. Also to note, she did not tolerate the Incruse nor budesonide. Will consider Daliresp. She was admitted to [facility] with diverticulitis. She was placed on IV antibiotics but she left against medical advice because she did not like the antibiotic options. In the meantime she was having some issues with coughing up some blood. She is also concerned because on her visit to [facility] she did have a CT scan of the chest and she was told that she had significant scarring of her lungs in addition to lung volume loss. I have not looked at the CT scan back in reassured her that she has had this radiation fibrosis for long time and volume loss due to the scarring was present before. We did review her perfusion scan demonstrating no defects to suggest any blood clots. Interestingly in the quantitative study the patient did have 81% of the blood flow going to her right lung and 18% going to the left. This is likely due to her previous surgery and also radiation changes. 07/20/2023 the patient is here for a pulmonary follow-up visit. The patient doyle shine has been doing fairly well. She just returned from a trip to [place]. She had 1 for time with her family. She continues use her oxygen with a portable oxygen concentrator while being there. She did have a cough when she was down there but since she came back the cough has improved some. She also describes symptoms of chest pain and also tachycardia which have been exertional. She does mention that the time that it happened she was coming back from the supermarket and she was carrying some groceries and she took off her oxygen. And when she tried carrying the groceries she started having some left-sided chest pressure and also some tachycardia. I also did take it for walk in the office. We did walker with a portable oxygen concentrator and she became dyspneic although the pulse ox was stable and heart rate was also stable. My suspicion is that in view of her congestive heart failure and pulmonary hypertension and moderate degree of COPD she is having some demand symptoms when she exerts herself without the oxygen. Therefore explained to her that she should not take off the oxygen while exerting herself and lifting groceries or objects. The patient is wondering about her pulmonary hypertension. Explained to her that vasodilators therapy will be potentially problematic specially with her reactions in the past. The main treatment at this point will be diuresis. She is tolerating that well she will undergo blood work to further address that. We did review her PFTs that she had back last year in appears that her COPD did worsen with an FEV1 of 74% predicted which is moderate severity. The patient also underwent blood work and her venous gas demonstrated an elevated CO2 and also she had an elevated bicarb. Will go ahead and have a repeat the blood work at this time. She is also having some abdominal discomfort. I suspect that she has recurrence of her diverticulitis. I will give her Vantin which she tolerates and if the symptoms worsen she needs to either go to her primary care doctor seek medical advice. 08/24/2023 the patient is here for a pulmonary follow-up visit. She was recently hospitalized at [facility] apparently with diverticulitis and also with pneumonia. The patient had a repeat CT scan of the abdomen just yesterday. We will request the results from [place]. In the meantime the patient continues have shortness of breath with minimal activity. She does use her oxygen with good effect. She has been evaluated further for her pulmonary hypertension. She did speak to her specialists from [place] who wants her to undergo a cardiac catheterization. She is reluctant to go to [place]. And her refining still operator here is reluctant to do it here. She in the meantime will have an echocardiogram I believe in [facility]. Based on those results additional evaluation may be warranted. The patient does have dyspnea on exertion. [place] [employer] class 3. I do believe that this is related to her underlying pulmonary hypertension along with her significant COPD and restrictive lung disease. The patient does complaint of a cough the cough tends to be croupy in nature. She likely has a component of tracheomalacia. She does have daytime drowsiness. Her [place] score is elevated 10/24. She has a hard time remembering things. I did download her BiPAP. Currently setting 13 overnight. Her AHI is actually elevated at 13. This was not the case before on the same settings that she has had multiple sleep studies. Initially I was going to put her on VPAP auto but I just went ahead and increase her pressures to 15/10 in view of her very sensitive response to change. She will let me know how these pressures are doing we can always download her machine online to make sure that her AHI is decreasing. The patient's last blood gas demonstrated component of chronic hypercarbic respiratory failure along with a metabolic alkalosis. Likely from diuresis and her renal adjustments to her hypercarbia. The patient is scheduled to undergo an overnight oximetry on her BiPAP and on 2 L of oxygen which she has been using. We will reassess and check her venous blood gas during the next visit. 09/14/2023 the patient is here for visit. The patient still has multiple complaints. She is nervous. She feels like her breathing is getting worse and she is using oxygen more often. She also complains of pleuritic discomfort on the left side of her chest. She was seen by Cardiology and they do not see any active coronary artery disease based on her to coronary artery angiograms. The patient does have indeed some pulmonary hypertension and some mitral stenosis secondary to her mitral clip. She is responding well to the diuretics. No role for vasodilators therapy. The patient did have an overnight oximetry which we reviewed. The patient does need to increase her oxygen with BiPAP. She increases from 2 L to 3 L at this time. She needs to have further education about her use the concentrator so request a [employer] since somebody to educate her on how to switch her concentrator at this time. Meantime the patient is complaining of neck pain and also numbness of her upper extremities. She is also having difficulty sleeping. Will go ahead and started on a small dose of gabapentin hopefully to help her with her neuropathic discomfort and also hopefully help her with her sleep. She is very sensitive to medications so she will start with 100 mg capsules which is very small dose and then increase it to 200 after a week if not any better. Seems that she was on Neurontin in the past and she did tolerated which is reassuring. 10/12/2023 the patient is here for a pulmonary follow-up visit. She has been complaining of right-sided chest discomfort now. Apparently she was in her car reason for something and she felt the uncomfortable pop on her right side of her chest. And now is tender to the touch hurts when she takes a deep breath in makes it difficult to breathe. She did go to an urgent care where she had an x- ray done. I do see a small hairline fracture on that right side. Therefore the patient will be uncomfortable for some time. The patient is concerned about the potential of lung collapse. Explained to her that this area does not appear to be displaced therefore some likely to be the case. However, in view of her significant symptoms in the fact that the radiology report once it was normal in the patient does have a history of cancer we should go ahead and request a CT scan to better address her pleuritic right-sided discomfort. The patient will be provided also with some pain medication although she is extremely sensitive to new medications. Therefore she can try the atenolol 3. To see this provides her with some relief because of the pain she understands that she needs to be read. I did give her a incentive spirometer so she can work on that. Her respiratory medications are the same. She is also using her BiPAP at night with the oxygen with good effect. She does complaint of additional dyspnea. [id number] severity. She is now relying on the oxygen more. She has noted that for the last 3 days she gained about 4 lb. She feels a little bit more bloated. She understands that she needs to take additional diuresis. 11/09/2023 the patient is here for a pulmonary follow-up visit. During the last visit the patient was having chest discomfort dizziness. We did check a D-dimer that was significantly elevated. The patient did go to [facility] which she did have a CTA. The patient did not have any evidence of any blood clots. I did personally review the CTA demonstrating stable postoperative changes and fibrotic changes. No significant new nodules noted. Again no thromboembolic disease. The patient was discharged. She has been doing okay she has been using her oxygen. She continued on the diuretics. She has episodes of palpitations with heart rate she states goes up to 150 beats per minute. During those episodes she does drop her saturations down to the 80s. Usually the symptoms subside after several minutes. The patient in the meantime has been complaining of lower extremity pain especially behind her knee on her left lower extremity. We did again recheck his D-dimer continues to be elevated so therefore will do lower extremity Dopplers. The patient is on Coumadin and her last INR was documented to be 1.5 which is her therapeutic window specially since she has platelet dysfunction. She continues respiratory therapy. She did have an episode of palpitations when using the nebulizer so I did recommend she can only use half a treatment if she really needs it. Otherwise she should try to refrain from its specially if she has had more cardiac instability and irritability. We also checked her electrolytes because of that as well. Her potassium was 3.1. She had not taken today's dose of potassium so therefore I did emphasize importance of taking her potassium oral supplementation to minimize cardiac arrhythmias. 12/15/2023 the patient is here for pulmonary follow-up visit. Still having difficulties with her lower extremity edema. I did reassure her that her weight has been stable in that is more important. She has already a dose of diuretics. The patient has been having some bruising primarily because of the compression stockings. This is typical specially with her anticoagulation and platelet dysfunction. The patient also has a cough chest congestion. She has chronic lung disease and COPD with chronic bronchitis explained to her that she will always make mucus. She responds well to the oxygen she is using more regularly with good response. The patient has been using her BiPAP. BiPAP therapy has been affecting beneficial although her AHI now is elevated up to 15. She is having some central apneas. I did check a blood gas in her pCO2 is 59 mm Hg. At this point she is feeling BiPAP. The patient has hypercarbic respiratory failure due to her COPD. This carries a poor prognosis and high risk for hospitalizations. Therefore we are going to switch over to a noninvasive ventilator, astral. This provide her with better gas exchange improved prognosis and decrease hospitalizations. I did talk to the [employer] that supplies with the BiPAP to switch over to the astral at this time. 12/26/2023 the patient is here for sick visit. Since her last visit she did have a blood gas demonstrating an elevated CO2 of 59 mm Hg. The patient has hypercarbic respiratory failure due to her COPD. In addition to that she does have significant sleep apnea. She has been on BiPAP and she has had multiple sleep studies demonstrating the BiPAP settings are appropriate for her. Although, the last downloaded demonstrated that her AHI significantly increased up to about 15 events per hour. Some component of central apneas noted suggesting a complex sleep apnea picture. Therefore, based on the fact that she has hypercarbic respiratory failure we did set up with an astral. She has tried over the weekend she states that she developed significant chest pain shortness of breath she can not tolerate it. She does want keep using it. She went back to him BiPAP. In view of her worsening AHI will go ahead and refer her to a sleep specialist in addition to that will request an in-lab titration study to see if we can adequately titrate her on a BiPAP or IVAP. In the meantime she does continue with her ongoing shortness of breath cough mucus plugging. She does have some wheezing on examination. She needs to make sure to use her inhalers and she can also use her nebulizer as needed. She is already on prednisone 2.5 mg twice a day were not going to increase this at this time. She does have poor sleep quality. She is also having issues with a times being tearful and somewhat depressed. Also affecting her sleep-wake cycle. She is currently on trazodone with partial improvement. She is trying to get off the benzodiazepines because she has concerned the CO2 retention. I believe this is reasonable. 01/26/2024 the patient is here for a pulmonary follow-up visit. She was recently hospital for a injury to her lower extremity. Apparently she was her by a shopping cart were hit her leg and caused her to have a significant hematoma. It did requiring debridement at the bedside. She went to a rehab and then she came back and now she has had a different rehab. Now getting wound care. In the meantime she still having difficulties with breathing. She has been using her oxygen at 2 L. when she does not use her oxygen she tends to go to tachyarrhythmias so therefore did recommend she continue using her oxygen all times. The patient also has been using the BiPAP. She did not tolerate the AVAP. I did download the BiPAP and her AHI continues to be elevated still. Therefore increased her EPAP from 8-10. Now she has a settings of BiPAP of 16/10. She will call next week to let me know how she is doing a can download the machine is if we can increase it further. Will slowly increase it to get to the effective therapeutic pressures. She has other complaints including dry mouth nausea likely from her new medications specially pain medications and she did complete antibiotics for her extremity wound. She continues on Coumadin. While in the hospital she did have a V/Q scan which was indeterminate but no evidence of any PE that could be appreciated. She continues with respiratory therapy with good effect. Will follow-up the patient hopefully in 3-4 weeks and hopefully she is home by then. [facility] Medical History (Updated 01/18/24 @ 00:02 by Background Daemon) Open wound Warfarin anticoagulation Complex sleep apnea syndrome Chronic hypercapnic respiratory failure Leg pain Anemia Tachycardia DVT (deep venous thrombosis) COPD (chronic obstructive pulmonary disease) Compression fracture of body of thoracic vertebra ASD (atrial septal defect) Pleuritic chest pain History of COVID-19 Chronic anticoagulation Hypothyroidism GERD (gastroesophageal reflux disease) Hyperlipidemia Hypertension Factor 5 Leiden mutation, heterozygous History of non-ST elevation myocardial infarction (NSTEMI) Hypoxia Anxiety PTSD (post-traumatic stress disorder) Hemoptysis Dyspnea Tracheobronchitis CLARA positive Diverticulitis Allergic bronchitis (HFpEF) heart failure with preserved ejection fraction Subarachnoid bleed Insomnia Anti-phospholipid antibody syndrome Hypogammaglobulinemia Chronic respiratory failure Arterial insufficiency of lower extremity Complex regional pain syndrome i of right lower limb Post herpetic neuralgia Pulmonary hypertension Pericardial effusion Pulmonary emboli Pleural effusion Radiation fibrosis of lung Pneumonitis Pulmonary nodules KANDY treated with BiPAP Lung cancer Surgical History (Updated 01/18/24 @ 00:02 by Background Daemon) History of colonoscopy History of lung surgery History of tonsillectomy History of hysterectomy S/P mitral valve clip implantation History of cardiac cath Family History Sister No problems noted. Mother Cardiovascular disease Daughter Tachycardia Other KANDY (obstructive sleep apnea) Social History Household Members: None Housing: Care Home Do you presently have visiting nurse or other home services: No Unable to assess alcohol history related to: Unknown Alcohol intake: former Comment: stand by assist with ambulation Patient Tobacco Use Status: Never used Tobacco Second Hand Smoke Exposure: No Advance Directives Date on File: 06/15/22 service: No Current occupational status: retired Review of Systems Const Denies chills, Reports daytime sleepiness, Reports fatigue, Denies fever(s), Denies frequent falls, Denies weakness, Denies weight gain and Denies weight loss Eyes Reports change in vision ENT Denies change in voice and Denies dizziness Card Reports chest pain, Reports chest pain with activity, Reports rapid heart rate, Denies leg edema, Denies lightheadedness, Denies palpitations, Denies dyspnea, Reports dyspnea on exertion, Denies orthopnea and Denies other (loss of consciousness) Resp Reports cough, Denies pain on inspiration, Denies pain with cough, Denies dyspnea and Reports dyspnea on exertion GI Denies hematochezia and Denies change in stool character Musc Denies abnormal gait, Denies muscle weakness, Denies numbness, Denies radiating pain into limb and Denies tingling Skin/Breast Reports change in pigmentation and Reports unusual bruising Neuro Denies abnormal gait, Denies dizziness, Denies frequent falls, Denies numbness, Denies tingling and Denies weakness Psych Reports depression Endo Reports fatigue and Denies palpitations Physical Exam Vital Signs: Last Vital Signs Pulse 79 01/25/24 11:00 BP 102/58 L 01/25/24 11:00 Pulse Ox 99 01/25/24 11:00 Oxygen Delivery Method Nasal Cannula 01/25/24 11:00 Oxygen Flow Rate 2 01/25/24 11:00 Last Vital Signs Temp 97.7 F 06/20/22 08:00 Pulse 90 06/20/22 08:00 Resp 16 06/20/22 08:00 BP 137/60 06/20/22 08:00 Pulse Ox 93 06/20/22 08:00 O2 Del Method 06/20/22 08:00 O2 Flow Rate 2 06/20/22 08:00 FiO2 45 06/14/22 11:07 BMI result Body Mass Index 23.0 Const General: cooperative, comfortable, alert and awake Orientation/consciousness: patient oriented x3 HEENT Head: Yes atraumatic Eyes General: appearance normal, both eyes and all related structures Neck Neck: Yes trachea midline, Yes supple and Yes no JVD Chest Chest palpation & inspection: tenderness rib (right side) Resp Effort & Inspection: normal respiratory effort, no cough and No prolonged expiratory phase Auscultation: no rales, no rhonchi, wheezes and diminished lung sounds Cardio Rate: regular rate Rhythm: regular rhythm Heart sounds: S1 normal heart sound present, S2 normal heart sound present and Abnormal heart opening sounds loud S2 GI Auscultation: normal bowel sounds Skin General skin exam: purpura and scars Neuro General: patient oriented x3 and no focal motor deficits Extrem General: Yes no clubbing, cyanosis or edema Assessment & Plan Assessment & Plan (1) Chronic hypercapnic respiratory failure: Code(s): J96.12 - Chronic respiratory failure with hypercapnia Category: Medical (2) Complex sleep apnea syndrome: Code(s): G47.31 - Primary central sleep apnea Category: Medical (3) Lung cancer: Code(s): C34.90 - Malignant neoplasm of unspecified part of unspecified bronchus or lung Category: Medical Qualifiers: Laterality: left Lung location: upper lobe of lung Qualified Code(s): C34.12 - Malignant neoplasm of upper lobe, left bronchus or lung (4) Pulmonary hypertension: Comment: severe based on RHC, moderate based on recent echo Code(s): I27.20 - Pulmonary hypertension, unspecified Category: Medical (5) Pulmonary nodules: Code(s): R91.8 - Other nonspecific abnormal finding of lung field Category: Medical (6) Chronic respiratory failure: Code(s): J96.10 - Chronic respiratory failure, unspecified whether with hypoxia or hypercapnia Category: Medical Qualifiers: Respiratory failure complication: hypoxia and hypercapnia Qualified Code(s): J96.11 - Chronic respiratory failure with hypoxia; J96.12 - Chronic respiratory failure with hypercapnia (7) KANDY treated with BiPAP: Code(s): G47.33 - Obstructive sleep apnea (adult) (pediatric) Category: Medical (8) Radiation fibrosis of lung: Code(s): J70.1 - Chronic and other pulmonary manifestations due to radiation Category: Medical (9) COPD (chronic obstructive pulmonary disease): Code(s): J44.9 - Chronic obstructive pulmonary disease, unspecified Category: Medical Qualifiers: COPD type: chronic bronchitis Chronic bronchitis type: simple Qualified Code(s): J41.0 - Simple chronic bronchitis (10) Diastolic CHF: Code(s): I50.30 - Unspecified diastolic (congestive) heart failure Category: Medical Qualifiers: Heart failure chronicity: chronic Qualified Code(s): I50.32 - Chronic diastolic (congestive) heart failure (11) (HFpEF) heart failure with preserved ejection fraction: Code(s): I50.30 - Unspecified diastolic (congestive) heart failure Category: Medical Qualifiers: Heart failure chronicity: chronic Qualified Code(s): I50.32 - Chronic diastolic (congestive) heart failure Plan prednisone 2.5 mg QOD Ambien for sleep continue Advair ASHA as needed continue ASHA (xopenex) as needed CPT with acapella valve fluticasone Oxygen 2L/pulse with activity and sleep. POC Inogen G5 duiresis as tolerated Not tolerating AVAP, does not want to try to adjust the settings. AHI >16 with now significant central apneas and elevated PCO2. will decrease BIPAP 16/9 to 16/8 to 16/10. will call next week to review wound care F/U 3-4 weeks Coding Level of Care Code Est Pt Level 5 (22682) Diagnoses Chronic hypercapnic respiratory failure J96.12 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 Malignant neoplasm of upper lobe of left lung C34.12 Laterality: left Lung location: upper lobe of lung Pulmonary hypertension I27.20 Pulmonary nodules R91.8 Chronic respiratory failure with hypoxia and hypercapnia J96.11; J96.12 Respiratory failure complication: hypoxia and hypercapnia KANDY treated with BiPAP G47.33 Radiation fibrosis of lung 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 Chronic heart failure with preserved ejection fraction I50.32 Heart failure chronicity: chronic Time Spent (min) 40
== END 2024-01-25 11:35 | disposition home or self-care (01) ==
PROVIDERS: PCP Internal Medicine; Visit Provider Hospitalist
DX: J96.12 Chronic respiratory failure with hypercapnia (principal); G47.31 Primary central sleep apnea; C34.12 Malignant neoplasm of upper lobe, left bronchus or lung; I27.20 Pulmonary hypertension, unspecified; R91.8 Other nonspecific abnormal finding of lung field; J96.11 Chronic respiratory failure with hypoxia; G47.33 Obstructive sleep apnea (adult) (pediatric); J70.1 Chronic and other pulmonary manifestations due to radiation; J41.0 Simple chronic bronchitis; I50.32 Chronic diastolic (congestive) heart failure
CPT/HCPCS: 99215

== ENCOUNTER → 2024-01-25 10:59 | Outpatient (BNVA) | payer MEDICARE, SELFPAY | PROVIDERS: PCP Internal Medicine; Visit Provider Hospitalist | DX: J96.12 Chronic respiratory failure with hypercapnia (principal); G47.31 Primary central sleep apnea; J44.9 Chronic obstructive pulmonary disease, unspecified; C34.12 Malignant neoplasm of upper lobe, left bronchus or lung; I27.20 Pulmonary hypertension, unspecified; R91.8 Other nonspecific abnormal finding of lung field; J96.11 Chronic respiratory failure with hypoxia; G47.33 Obstructive sleep apnea (adult) (pediatric); J70.1 Chronic and other pulmonary manifestations due to radiation; J41.0 Simple chronic bronchitis; Z86.711 Personal history of pulmonary embolism; Z79.01 Long term (current) use of anticoagulants; Z99.81 Dependence on supplemental oxygen; I50.32 Chronic diastolic (congestive) heart failure | CPT/HCPCS: 99212 ==

== ENCOUNTER 2024-02-01 12:09 | Inpatient (IN) | payer MEDICARE, SELFPAY ==
--- NOTE | ~2024-02-01 | CT_ITS ---
EXAMINATION: CT ABDOMEN AND PELVIS WITHOUT CONTRAST CLINICAL INFORMATION: Abdominal pain and black stools. COMPARISON: 08/23/2023 TECHNIQUE: Multidetector volumetric imaging was performed from the superior aspect of the liver through the pubic symphysis. Sagittal and coronal reformatted images were obtained on the technologist's workstation. This CT examination was performed using dose optimization techniques as appropriate, variously including the following: *Automated exposure control *Adjustment of mA and/or kV according to patient size (this includes techniques or standardized protocols for targeted exams where dose is matched to indication/reason for exam; i.e. extremities or head) *Use of iterative reconstruction technique DLP: 409 mGy-cm FINDINGS: LUNG BASES: A trace pericardial effusion and small loculated left pleural effusion are unchanged compared to 08/23/2023. Streak artifact is produced by a mitral valve clip. HEPATOBILIARY: Liver has normal size, shape, and attenuation. Gallbladder has a normal appearance. No dilated bile ducts. PANCREAS: No edema, pancreatic ductal dilatation or mass. SPLEEN: Normal. ADRENAL GLANDS: Normal. KIDNEYS AND URETERS: Kidneys are normal in size. No evidence of a solid renal mass. A few simple cysts of the left kidney. No renal imaging follow-up is recommended for simple cysts. Mild bilateral hydroureteronephrosis. No urinary tract calculi. BLADDER: Urinary bladder is well distended. Its possible that the mild bilateral hydroureteronephrosis is from increased hydrostatic pressure in the setting of a full bladder. BOWEL AND PERITONEUM: No dilated bowel loops. There is edematous wall thickening of a segment of the sigmoid colon and this is predominantly focused around an inflamed diverticulum. No evidence of bowel perforation or abscess. There is edema/stranding of the perisigmoid fat. The lower pelvic inflammatory changes might partially interfere with ureteral peristalsis. There appears to be a prominent 2.4 cm diverticulum of the distal sigmoid but no wall thickening of this diverticulum. ABDOMINAL WALL: Unremarkable. VASCULATURE: Atherosclerosis of the abdominal aorta without aneurysm. LYMPH NODES: No pathologic sized lymph nodes in the abdomen or pelvis. No inguinal lymphadenopathy. PELVIC VISCERA: Status post hysterectomy. No adnexal mass. MUSCULOSKELETAL: Bones are diffusely osteopenic. Facet osteoarthritis of lumbar spine is worst at the L5-S1 level. Vacuum disc degenerative change at L4-5. There is grade 1 anterolisthesis at L3-L4 and L5-S1. CT/CT abdomen pelvis wo IV con IMPRESSION: * Acute diverticulitis of the sigmoid colon. * Mild bilateral hydroureteronephrosis is noted but uncertain whether this is merely due to increased hydrostatic pressure in the setting of a full urinary bladder or perhaps decreased ureteral peristalsis from inflammatory changes in the lower pelvis. * A trace pericardial effusion and small loculated left pleural effusion are unchanged compared to 08/23/2023.
[2024-02-01 12:17] VITALS: BP 129/60; BP 137/53; PULSE 80; PULSE 83; RESP 16; TEMP 37.1; O2SAT 100; O2SAT 98; BMI 22.8
--- NOTE | 2024-02-01 12:35 | ED.GENADULT ---
HPI - General Adult General Chief complaint: Abdominal Pain Stated complaint: ABD PAIN X4 DAYS FROM SNF PER EMS Time Seen by Provider: 02/01/24 12:24 Source: patient, EMS and old records reviewed Mode of arrival: EMS Limitations: no limitations History of Present Illness ED Provider: DR. López HPI narrative: 78-year-old female PMH CAD s/p NSTEMI, HFpEF SAH, chronic hypoxia, hypercapnic respiratory failure due to COPD, pulmonary hypertension, use to L of supplemental oxygen, KANDY on BiPAP at night, non-small cell carcinoma of the lung s/p chemo and radiation with left upper lobectomy. Patient is on Coumadin daily for antiphospholipid antibody syndrome and history of DVT and PE. Patient recently was discharged from [facility] [place] for traumatic hematoma of right lower extremity went to a rehab. Patient was sent to the emergency department for further evaluation of abdominal pain over the past 4 days, patient had 1st constipation was given laxative then patient started to have a black diarrhea. No CP, no SOB. Related Data Home Medications ?Medication ?Instructions ?Recorded ?Confirmed levothyroxine 25 mcg tablet 25 mcg PO MOTUWETHFR@0600 06/14/22 01/14/24 (Synthroid) CPAP (CPAP Machine/Device) 06/30/22 11/20/23 Oxygen Home Use 06/30/22 11/20/23 nebulizers 06/30/22 11/20/23 epinephrine 0.3 mg/0.3 mL 0.3 mg IM USEASDIRECTD PRN 07/14/22 01/14/24 injection, auto-injector Allergic Reaction prednisone 2.5 mg tablet 2.5 mg PO Q48H 08/09/23 01/14/24 diazepam 5 mg tablet 5 mg PO Q8H PRN Anxiety 01/05/24 01/14/24 furosemide 40 mg tablet 40 mg PO DAILY@1200 01/05/24 01/14/24 furosemide 40 mg tablet 80 mg PO DAILY 01/05/24 01/14/24 levothyroxine 25 mcg tablet 50 mcg PO SUSA@0600 01/05/24 01/14/24 (Synthroid) nystatin 100,000 unit/gram topical 1 appl topical BID 01/05/24 01/14/24 powder rosuvastatin 10 mg tablet 10 mg PO MOWEFR 01/05/24 01/14/24 warfarin 2.5 mg tablet (Jantoven) 2.5 mg PO DAILY@1800 01/05/24 01/14/24 docusate sodium 100 mg capsule 100 mg PO DAILY 01/14/24 01/14/24 ferrous sulfate 325 mg (65 mg 325 mg PO DAILY 01/14/24 01/14/24 iron) tablet meclizine 25 mg tablet 25 mg PO Q8H PRN dizziness 01/14/24 01/14/24 methyl salicylate 15 %-menthol 10 1 appl topical DAILY PRN Pain 01/14/24 01/14/24 % topical cream (Muscle Rub) Previous Rx's ?Medication ?Instructions ?Recorded albuterol sulfate 2.5 mg/3 mL 2.5 mg (3 mL) inhalation Q6H PRN 09/21/22 (0.083 %) solution for nebulization shortness of breath or wheezing 30 days #180 mL Advair HFA 230 mcg-21 2 puff inhalation BID 90 days #36 03/07/23 mcg/actuation aerosol inhaler grams (fluticasone propion-salmeterol) levocetirizine 5 mg tablet 5 mg PO DAILY 90 days #90 tabs 07/20/23 montelukast 10 mg tablet 10 mg PO DAILY #90 tabs 07/20/23 potassium chloride 20 mEq oral 20 meq PO DAILY #50 ea 07/20/23 packet trazodone 50 mg tablet 100 mg (2 x 50 mg) PO BEDTIME #180 07/20/23 tabs metoprolol succinate 50 mg 50 mg PO BID #120 tabs 08/14/23 tablet,extended release 24 hr (Toprol XL) chlorhexidine gluconate 0.12 % 15 ml buccal BID 14 days #420 mL 01/02/24 mouthwash doxycycline monohydrate 100 mg 100 mg PO Q12H #10 caps 01/09/24 capsule oxycodone 5 mg tablet 5 mg PO Q4H PRN Pain #20 tabs 01/17/24 Allergies Allergy/AdvReac Type Severity Reaction Status Date / Time morphine Allergy Severe Itching Verified 02/01/24 12:19 avocado [AVOCADO] Allergy Mild ITCHY Verified 02/01/24 12:19 THROAT, RASH azithromycin [AZITHROMYCIN] Allergy Mild ITCHY Verified 02/01/24 12:19 THROAT, RASH barium iodide [BARIUM IODIDE] Allergy Mild ITCHY Verified 02/01/24 12:19 THROAT, RASH barium sulfate Allergy Mild Itch Verified 02/01/24 12:19 bee pollen [BEE STINGS] Allergy Mild ITCHY Verified 02/01/24 12:19 THROAT, RASH ciprofloxacin [From CIPRO] Allergy Mild ITCHY Verified 02/01/24 12:19 THROAT, RASH clarithromycin [From BIAXIN] Allergy Mild ITCHY Verified 02/01/24 12:19 THROAT, RASH diatrizoate meglumine Allergy Mild ITCHY Verified 02/01/24 12:19 [From GASTROGRAFIN] THROAT, RASH diatrizoate sodium Allergy Mild ITCHY Verified 02/01/24 12:19 [From GASTROGRAFIN] THROAT, RASH diclofenac [From VOLTAREN] Allergy Mild ITCHY Verified 02/01/24 12:19 THROAT, RASH erythromycin base Allergy Mild ITCHY Verified 02/01/24 12:19 [ERYTHROMYCIN BASE] THROAT, RASH gentamicin [GENTAMICIN] Allergy Mild ITCHY Verified 02/01/24 12:19 THROAT, RASH Iodinated Contrast Media Allergy Mild ITCHY Verified 02/01/24 12:19 [IVP DYE] THROAT, RASH levofloxacin [From LEVAQUIN] Allergy Mild ITCHY Verified 02/01/24 12:19 THROAT, RASH metronidazole [From FLAGYL] Allergy Mild ITCHY Verified 02/01/24 12:19 THROAT, RASH moxifloxacin [From AVELOX] Allergy Mild ITCHY Verified 02/01/24 12:19 THROAT, RASH Penicillins [PENICILLINS] Allergy Mild ITCHY Verified 02/01/24 12:19 THROAT, RASH shrimp [SHRIMP] Allergy Mild ITCHY Verified 02/01/24 12:19 THROAT, RASH Sulfa (Sulfonamide Allergy Mild ITCHY Verified 02/01/24 12:19 Antibiotics) THROAT, [SULFA (SULFONAMIDE RASH ANTIBIOTICS)] vancomycin [VANCOMYCIN] Allergy Mild ITCHY Verified 02/01/24 12:19 THROAT, RASH clindamycin AdvReac Intermediate Unknown Verified 02/01/24 12:19 Review of Systems Review of Systems: All other systems are reviewed and are negative Constitutional: Reports as per HPI and Reports no additional constitutional complaints Eyes: Reports as per HPI and Reports no additional eye complaints Reports system reviewed and no additional complaints, except as documented Cardiovascular: Reports as per HPI and Reports no additional cardiovascular complaints Respiratory: Reports as per HPI and Reports no additional respiratory complaints Gastrointestinal: Reports as per HPI and Reports no additional gastrointestinal complaints Genitourinary: Reports no additional female genitourinary complaints Musculoskeletal: Reports no additional musculoskeletal complaints Skin/Breast: Reports system reviewed and no additional complaints, except as docu Psychiatric: Reports no additional psychiatric complaints Endocrine: Reports no additional endocrine complaints Hematologic/Lymphatic: Reports no additional hematologic/lymphatic complaints Allergic/Immunologic: Reports no additional allergic/immunologic complaints Reports system reviewed and no additional complaints, except as documented and Reports Abnormal speech present [facility] Past Medical History Medical History Open wound Warfarin anticoagulation Complex sleep apnea syndrome Chronic hypercapnic respiratory failure Leg pain Anemia Tachycardia DVT (deep venous thrombosis) COPD (chronic obstructive pulmonary disease) Compression fracture of body of thoracic vertebra ASD (atrial septal defect) Pleuritic chest pain History of COVID-19 Chronic anticoagulation Hypothyroidism GERD (gastroesophageal reflux disease) Hyperlipidemia Hypertension Factor 5 Leiden mutation, heterozygous History of non-ST elevation myocardial infarction (NSTEMI) Hypoxia Anxiety PTSD (post-traumatic stress disorder) Hemoptysis Dyspnea Tracheobronchitis CLARA positive Diverticulitis Allergic bronchitis (HFpEF) heart failure with preserved ejection fraction Subarachnoid bleed Insomnia Anti-phospholipid antibody syndrome Hypogammaglobulinemia Chronic respiratory failure Arterial insufficiency of lower extremity Complex regional pain syndrome i of right lower limb Post herpetic neuralgia Pulmonary hypertension Pericardial effusion Pulmonary emboli Pleural effusion Radiation fibrosis of lung Pneumonitis Pulmonary nodules KANDY treated with BiPAP Lung cancer Surgical History History of colonoscopy History of lung surgery History of tonsillectomy History of hysterectomy S/P mitral valve clip implantation History of cardiac cath Family History Family History Sister No problems noted. Mother Cardiovascular disease Daughter Tachycardia Other KANDY (obstructive sleep apnea) Social History Social History Household Members: None Housing: Skilled Nursing Do you presently have visiting nurse or other home services: No Unable to assess alcohol history related to: Unknown Alcohol intake: former Comment: stand by assist with ambulation Patient Tobacco Use Status: Never used Tobacco Smoked in Last 30 Days: No Second Hand Smoke Exposure: No Use of substances other than those prescribed or required for medical reasons: No Advance Directives: Yes Advance Directives on File: Yes Advance Directives Date on File: 06/15/22 Do you have a plan to hurt others: No Plan service: No Current occupational status: retired Physical Exam ED Vital Signs: Vital Signs - 24 hr 02/01/24 12:17 02/01/24 14:00 Temperature 98.8 F 98.8 F Pulse Rate 83 87 Respiratory Rate 16 19 Blood Pressure 137/53 L 116/40 L Pulse Oximetry 100 100 Oxygen Delivery Method Nasal Cannula Nasal Cannula Oxygen Flow Rate 2 BMI result Body Mass Index 22.8 Vital signs have been reviewed and appear to be correct. Blood pressure elevated. Heart rate normal. Respiratory rate normal. Temperature normal. Oxygen saturation normal. Appearance: Alert. Oriented X3. No acute distress. Head: Normal external exam. Normocephalic. Atraumatic. No Kim signs noted. No raccoon eyes noted Eyes: PERRLA. EOMI. Conjunctiva and sclera normal. Eyelids normal. ENT: TM's Normal. Pharynx normal. Uvula midline. Moist mucous membranes. No trismus noted. No drooling noted. No muffled voice noted. Neck: Normal inspection. Neck supple. FROM. No adenopathy. Thyroid Normal. No meningeal signs. No neck mass noted. CVS: Normal heart rate and rhythm. Heart sound normal. No murmurs noted. Pulses normal throughout. Respiratory: No respiratory distress. Painless inspiration. Breath sounds normal. No wheezes/rales/rhonchi noted. Chest nontender. No accessory muscle usage noted or decreased air movement noted. Abdomen: Diffuse abdominal tenderness, no rebound tenderness, guarding. Bowel sounds normal in all 4 quadrants. No distention noted. No organomegaly noted. No visible injury noted. Rectal exam: No hemorrhoids, black stool in the vault. Back: No CVA tenderness. Full range of motion noted. Skin: Skin warm and dry. Normal skin color. Normal skin turgor. No rashes/lesions/lacerations noted. Extremities: No lower extremity edema. Extremities exhibit normal range of motion. Extremities nontender. Neuro: Oriented X 3. Cranial nerve exam: II-XII are grossly intact No motor deficit. No sensory deficit. Reflexes normal. Course Reevaluation(s) Reevaluation #1: CT is consistent with acute diverticulitis will start the patient on ceftriaxone (patient is alfonso allergic to most of antibiotic). On Coumadin INR is 2.3 VSS, hemodynamically stable, black stool and exam which could be secondary to Mylanta was given to the patient for constipation will admit the patient and monitor the patient with no revision of the anticoagulation. Time: 15:33 Medications Administered Discontinued Medications Generic Name Dose Route Start Last Admin Trade Name Freq PRN Reason Stop Dose Admin Potassium Chloride 10 meq in 100 mls @ 100 mls/hr 02/01/24 13:51 02/01/24 14:36 Potassium Chloride/H20 IV 02/01/24 14:50 100 mls/hr ONCE ONE Administration Potassium Chloride 40 meq 02/01/24 13:51 02/01/24 14:18 Potassium Chloride Packet 20 Meq Packet PO 02/01/24 13:52 40 meq ONCE ONE Administration Medical Decision Making Differential Diagnosis Differential Diagnoses: The differential diagnosis associated with the presentation includes (Colitis, diverticulitis, electrolyte derangement, severe anemia, pancreatitis, coagulopathy, UTI.) Admission/Observation Consideration of admission/observation: Escalation of care including admission/observation considered Consult Healthcare Provider Management of the patient was discussed with: Hospitalist (Dr. Murphy) Lab Data MDM Lab Attestation statement: I reviewed the patient's lab results. 02/01/24 12:54 02/01/24 12:54 Labs: Lab Results 02/01/24 02/01/24 Range/Units 12:49 12:54 WBC 24.5 H (4.8-10.8) X10*3/uL RBC 3.22 L (4.20-5.50) X10*6/uL Hgb 10.6 L (12.0-16.0) g/dl Hct 31.9 L (37.0-47.0) % MCV 99.1 H (80.0-98.0) fL MCH 32.9 (27.0-33.0) pg MCHC 33.2 (31.0-35.0) g/dl RDW 13.2 (11.0-16.0) % Plt Count 355 (160-400) X10*3/uL MPV 10.6 (9.4-12.3) fL Immature Gran % (Auto) 1.3 H (0.0-0.4) % Neut % (Auto) 87.0 H (45-73) % Lymph % (Auto) 4.3 L (20-40) % [place] % (Auto) 7.0 (2-11) % Eos % (Auto) 0.1 (0-4) % Baso % (Auto) 0.3 (0-2) % Lymph # (Auto) 1.1 L (1.2-4.9) X10*3/uL [place] # (Auto) 1.7 H (0.1-1.2) X10*3/uL Eos # (Auto) 0.0 (0.0-0.4) X10*3/uL Baso # (Auto) 0.1 (0.0-0.2) X10*3/uL Abs Immat Gran (auto) 0.31 H (0.00-0.03) X10*3/uL Absolute Neuts (auto) 21.3 H (2.0-8.3) x10*3/uL Absolute Nucleated RBC 0.000 (0.0-0.012) X10*3/uL Nucleated RBC % (auto) 0.0 (0.0-0.2) /100WBC Smear Tech's Comments VERIFIED PT 27.5 H D (11.1-13.3) SEC INR 2.3 H (0.9-1.1) APTT 41.3 H (26.0-36.8) SEC Sodium 134 L (135-145) mmol/L Potassium 3.1 L (3.3-5.1) mmol/L Chloride 89 L (96-108) mmol/L Carbon Dioxide 33 H (22-29) mmol/L Anion Gap 15 (12-20) BUN 17 H (9-16) mg/dL Creatinine 0.86 (0.5-1.4) mg/dL Estim Creat Clear Calc 43.1 Estimated GFR > 60 Random Glucose 113 (60-115) mg/dL Calcium 10.5 H D (8.4-10.2) mg/dL Total Bilirubin 0.6 (0.0-1.0) mg/dL Direct Bilirubin 0.3 (0.0-0.5) mg/dL AST 19 (5-31) U/L ALT 11 (0-31) U/L Alkaline Phosphatase 58 (39-117) U/L Troponin I High Sens 14.9 (<3.5-17.0) ng/L Total Protein 6.3 L (6.5-8.0) g/dL Albumin 3.3 L (3.5-5.0) g/dL Lipase 27 (8-78) U/L Urine Color Yellow Urine Appearance Clear Urine pH 7.5 (5.0-9.0) Ur Specific Joy 1.010 (1.005-1.025) Urine Protein Negative (Neg-Trace) mg/dL Urine Glucose (UA) Negative (Negative) mg/dL Urine Ketones Negative (Negative) mg/dL Urine Blood Negative (Negative) Urine Nitrite Negative (Negative) Ur Leukocyte Esterase Trace H (Negative) Urine RBC 0-2 (0-2) /HPF Urine WBC 0-5 (0-5) /HPF Ur Squamous Epith Cells 0-2 (0-2) /HPF Urine Bacteria None Seen (None Seen) Hyaline Casts 0-2 (0-2) /LPF Stool Occult Blood POSITIVE (NEGATIVE) Independent Interpretation I performed an independent interpretation of an: CT Scan (Abdomen pelvis:* Acute diverticulitis of the sigmoid colon. * Mild bilateral hydroureteronephrosis is noted but uncertain whether this is merely due to increased hydrostatic pressure in the setting of a full urinary bladder or perhaps decreased ureteral peristalsis from inflammatory changes in the) Radiology Impression Discussion of test interpretation with radiology: I have reviewed the radiologist's reading. Discharge Plan Discharge Clinical Impression: Diverticulitis, Melena, Acute hypokalemia Patient Disposition: Admitted As Inpatient Print Language: [place]guill[place]
[2024-02-01 13:07] LABS: Basophils Absolute Auto 0.1 X10*3/uL (0.0-0.2); Basophils Percent Auto 0.3 % (0-2); Eosinophils Percent Auto 0.1 % (0-4); Hematocrit 31.9 % (37.0-47.0); Hemoglobin 10.6 g/dl (12.0-16.0); Imm Gran Abs Auto 0.31 X10*3/uL (0.00-0.03); Imm Gran Pct Auto 1.3 % (0.0-0.4); Lymphocytes Absolute Auto 1.1 X10*3/uL (1.2-4.9); Lymphocytes Percent Auto 4.3 % (20-40); MANUAL DIFF FLAG SCAN; Mean Corpuscular HGB Conc 33.2 g/dl (31.0-35.0); Mean Corpuscular Hemoglobin 32.9 pg (27.0-33.0); Mean Corpuscular Volume 99.1 fL (80.0-98.0); Mean Platelet Volume 10.6 fL (9.4-12.3); Monocytes Absolute Auto 1.7 X10*3/uL (0.1-1.2); Neutrophils Absolute Auto 21.3 x10*3/uL (2.0-8.3); Platelet Count 355 X10*3/uL (160-400); Red Blood Count 3.22 X10*6/uL (4.20-5.50); Red Cell Distribution Width 13.2 % (11.0-16.0); SCAN SMEAR FLAG 1; White Blood Count 24.5 X10*3/uL (4.8-10.8)
[2024-02-01 13:09] LABS: Appearance Urine Clear; Color Urine Yellow; Glucose Urine UA Negative (Negative); Leukocyte Esterase Urine Trace (Negative); Nitrite Urine Negative (Negative); OBS Int Ctl Valid YES; OBS1 POSITIVE (NEGATIVE); PH 7.5 (5.0-9.0); UMIC TRIGGER UACC YES; Urine Blood Negative (Negative); Urine Ketones Negative (Negative); Urine Protein Negative (Neg-Trace)
[2024-02-01 13:15] LABS: INTERNATIONAL NORM RATIO 2.3 (0.9-1.1); Prothrombin Time 27.5 SEC (11.1-13.3)
[2024-02-01 13:18] LABS: Partial Thromboplastin Time 41.3 SEC (26.0-36.8)
[2024-02-01 13:19] LABS: Bacteria Urine None Seen (None Seen); Hyaline Casts Urine 0-2 /LPF (0-2); RBC Urine 0-2 /HPF (0-2); Squamous Epithelial Cell Urine 0-2 /HPF (0-2); WBC Urine 0-5 /HPF (0-5)
[2024-02-01 13:29] LABS: Troponin-I High Sensitivity 14.9 ng/L (<3.5-17.0)
[2024-02-01 13:34] LABS: SLIDE REVIEW VERIFIED
[2024-02-01 13:35] LABS: Alanine Aminotransferase 11 U/L (0-31); Albumin Level 3.3 g/dL (3.5-5.0); Alkaline Phosphatase 58 U/L (39-117); Anion Gap 15 (12-20); Aspartate Amino Transferase 19 U/L (5-31); Bilirubin Direct 0.3 mg/dL (0.0-0.5); Bilirubin Total 0.6 mg/dL (0.0-1.0); Blood Urea Nitrogen 17 mg/dL (9-16); Calcium 10.5 mg/dL (8.4-10.2); Carbon Dioxide 33 mmol/L (22-29); Chloride 89 mmol/L (96-108); Creatinine Clr Calc Pharmacy 43.1; Estimated Glomerular Filt Rate > 60; Glucose Random 113 mg/dL (60-115); Lipase 27 U/L (8-78); Potassium 3.1 mmol/L (3.3-5.1); Sodium 134 mmol/L (135-145); Total Protein 6.3 g/dL (6.5-8.0)
[2024-02-01 14:00] VITALS: BP 116/40; PULSE 87; RESP 19; TEMP 37.1; O2SAT 100
[2024-02-01] MEDS: Potassium Chloride Packet 20 MEQ PACKET 40 MEQ PO (14:18)
[2024-02-01] MEDS: Potassium Chloride/H20 10 MEQ/100 ML PIGGYBACK 100 MEQ IV (14:36)
[2024-02-01 16:00] VITALS: BP 109/42; PULSE 85; RESP 18; TEMP 36.8; O2SAT 100
[2024-02-01] MEDS: cefTRIAXone sodium 1 GM in 0.9 % Sodium Chloride 50 ML IV (16:09)
--- NOTE | 2024-02-01 16:37 | P.HPHOSP_ITS ---
History of Present Illness Date of Service: 02/01/24 Chief Complaint: Abdominal pain, melena An 78 years old lady with PMH of CAD s/p NSTEMI, HFpEF, hx of SAH, chronic hypoxic and hypercapneic respiratory failure due to COPD, Pul HTN on 2L home O2 , KANDY on BiPAP at night, hx of non-small cell lung cancer s/p chemo, radiation, and left upper lobe lobectomy, antiphospholipid antibody syndrome, hx of DVT/PE on Coumadin, and anxiety who presents to the hospital with Abd pain and Melena. The patient was at SNF post recent hospitalization for traumatic hematoma RLE and cellulitis. She started to report abd pain mainly in LLQ for 3-4 days now. had constipation and when she took laxative she started to pass black stool. No fever, chills, chest pain, palpitations, SOB, nausea, vomiting, diarrhea or urinary symptoms but reports decreased appetite. CT scan of Abd showing Acute diverticulitis of Sigmoid colon. Started on IV fluids and admitted for further treatment. Review of Systems 2 Review of Systems: No fever, chills but reports generalized weakness No chest pain, palpitation No shortness of breath or coughing Left lower quaderent abdominal pain, with mild nausea but no vomiting No urinary symptoms RLE wound covered in dressing PMFSH Medical History Open wound Warfarin anticoagulation Complex sleep apnea syndrome Chronic hypercapnic respiratory failure Leg pain Anemia Tachycardia DVT (deep venous thrombosis) COPD (chronic obstructive pulmonary disease) Compression fracture of body of thoracic vertebra ASD (atrial septal defect) Pleuritic chest pain History of COVID-19 Chronic anticoagulation Hypothyroidism GERD (gastroesophageal reflux disease) Hyperlipidemia Hypertension Factor 5 Leiden mutation, heterozygous History of non-ST elevation myocardial infarction (NSTEMI) Hypoxia Anxiety PTSD (post-traumatic stress disorder) Hemoptysis Dyspnea Tracheobronchitis CLARA positive Diverticulitis Allergic bronchitis (HFpEF) heart failure with preserved ejection fraction Subarachnoid bleed Insomnia Anti-phospholipid antibody syndrome Hypogammaglobulinemia Chronic respiratory failure Arterial insufficiency of lower extremity Complex regional pain syndrome i of right lower limb Post herpetic neuralgia Pulmonary hypertension Pericardial effusion Pulmonary emboli Pleural effusion Radiation fibrosis of lung Pneumonitis Pulmonary nodules KANDY treated with BiPAP Lung cancer Family History Sister No problems noted. Mother Cardiovascular disease Daughter Tachycardia Other KANDY (obstructive sleep apnea) Surgical History History of colonoscopy History of lung surgery History of tonsillectomy History of hysterectomy S/P mitral valve clip implantation History of cardiac cath Social History Household Members: None Housing: Residential Do you presently have visiting nurse or other home services: No Unable to assess alcohol history related to: Unknown Alcohol intake: former Comment: stand by assist with ambulation Patient Tobacco Use Status: Never used Tobacco Smoked in Last 30 Days: No Second Hand Smoke Exposure: No Use of substances other than those prescribed or required for medical reasons: No Advance Directives: Yes Advance Directives on File: Yes Advance Directives Date on File: 06/15/22 Do you have a plan to hurt others: No Plan service: No Current occupational status: retired Meds Allergies Allergy/AdvReac Type Severity Reaction Status Date / Time morphine Allergy Severe Itching Verified 02/01/24 12:19 avocado [AVOCADO] Allergy Mild ITCHY Verified 02/01/24 12:19 THROAT, RASH azithromycin [AZITHROMYCIN] Allergy Mild ITCHY Verified 02/01/24 12:19 THROAT, RASH barium iodide [BARIUM IODIDE] Allergy Mild ITCHY Verified 02/01/24 12:19 THROAT, RASH barium sulfate Allergy Mild Itch Verified 02/01/24 12:19 bee pollen [BEE STINGS] Allergy Mild ITCHY Verified 02/01/24 12:19 THROAT, RASH ciprofloxacin [From CIPRO] Allergy Mild ITCHY Verified 02/01/24 12:19 THROAT, RASH clarithromycin [From BIAXIN] Allergy Mild ITCHY Verified 02/01/24 12:19 THROAT, RASH diatrizoate meglumine Allergy Mild ITCHY Verified 02/01/24 12:19 [From GASTROGRAFIN] THROAT, RASH diatrizoate sodium Allergy Mild ITCHY Verified 02/01/24 12:19 [From GASTROGRAFIN] THROAT, RASH diclofenac [From VOLTAREN] Allergy Mild ITCHY Verified 02/01/24 12:19 THROAT, RASH erythromycin base Allergy Mild ITCHY Verified 02/01/24 12:19 [ERYTHROMYCIN BASE] THROAT, RASH gentamicin [GENTAMICIN] Allergy Mild ITCHY Verified 02/01/24 12:19 THROAT, RASH Iodinated Contrast Media Allergy Mild ITCHY Verified 02/01/24 12:19 [IVP DYE] THROAT, RASH levofloxacin [From LEVAQUIN] Allergy Mild ITCHY Verified 02/01/24 12:19 THROAT, RASH metronidazole [From FLAGYL] Allergy Mild ITCHY Verified 02/01/24 12:19 THROAT, RASH moxifloxacin [From AVELOX] Allergy Mild ITCHY Verified 02/01/24 12:19 THROAT, RASH Penicillins [PENICILLINS] Allergy Mild ITCHY Verified 02/01/24 12:19 THROAT, RASH shrimp [SHRIMP] Allergy Mild ITCHY Verified 02/01/24 12:19 THROAT, RASH Sulfa (Sulfonamide Allergy Mild ITCHY Verified 02/01/24 12:19 Antibiotics) THROAT, [SULFA (SULFONAMIDE RASH ANTIBIOTICS)] vancomycin [VANCOMYCIN] Allergy Mild ITCHY Verified 02/01/24 12:19 THROAT, RASH clindamycin AdvReac Intermediate Unknown Verified 02/01/24 12:19 Home Medications ?Medication ?Instructions ?Recorded ?Confirmed ?Last Taken ?Type levothyroxine 25 mcg tablet 25 mcg PO MOTUWETHFR@0600 06/14/22 01/14/24 01/04/24 History (Synthroid) CPAP (CPAP Machine/Device) 06/30/22 11/20/23 Unknown History Oxygen Home Use 06/30/22 11/20/23 Unknown History nebulizers 06/30/22 11/20/23 Unknown History epinephrine 0.3 mg/0.3 mL 0.3 mg IM USEASDIRECTD PRN 07/14/22 01/14/24 Unknown History injection, auto-injector Allergic Reaction prednisone 2.5 mg tablet 2.5 mg PO Q48H 08/09/23 01/14/24 01/04/24 History diazepam 5 mg tablet 5 mg PO Q8H PRN Anxiety 01/05/24 01/14/24 Unknown History furosemide 40 mg tablet 40 mg PO DAILY@1200 01/05/24 01/14/24 01/04/24 History furosemide 40 mg tablet 80 mg PO DAILY 01/05/24 01/14/24 01/04/24 History levothyroxine 25 mcg tablet 50 mcg PO SUSA@0600 01/05/24 01/14/24 01/04/24 History (Synthroid) nystatin 100,000 unit/gram topical 1 appl topical BID 01/05/24 01/14/24 01/04/24 History powder rosuvastatin 10 mg tablet 10 mg PO MOWEFR 01/05/24 01/14/24 01/04/24 History warfarin 2.5 mg tablet (Jantoven) 2.5 mg PO DAILY@1800 01/05/24 01/14/24 01/13/24 History docusate sodium 100 mg capsule 100 mg PO DAILY 01/14/24 01/14/24 Unknown History ferrous sulfate 325 mg (65 mg 325 mg PO DAILY 01/14/24 01/14/24 Unknown History iron) tablet meclizine 25 mg tablet 25 mg PO Q8H PRN dizziness 01/14/24 01/14/24 Unknown History methyl salicylate 15 %-menthol 10 1 appl topical DAILY PRN Pain 01/14/24 01/14/24 Unknown History % topical cream (Muscle Rub) Physical Exam 2 Vital Signs and Narrative: Vital Signs: Last Vital Signs Temp 98.3 F 02/01/24 16:00 Pulse 85 02/01/24 16:00 Resp 18 02/01/24 16:00 BP 109/42 L 02/01/24 16:00 Pulse Ox 100 02/01/24 16:00 O2 Del Method Nasal Cannula 02/01/24 16:00 O2 Flow Rate 2 02/01/24 16:00 Oxygen Flow Rate 2 02/01/24 12:17 BMI result Body Mass Index 22.8 Const: Other: Constitutional : Awake, interactive, not in distress Neck : Normal inspection, Supple Cardiovascular : RRR, no JVP, no lower extremity edema Respiratory : good bilateral air entry, no crackles, wheezes or rhonchi Gastrointestinal: soft, lax, Normal bowel sounds, LLQ mild tenderness, no guarding or surgical signs Skin : Warm, Dry, open RLE wound with granulation tissue and resolved surrounding erythema covered in dressing Neurological : Alert & oriented x3, No focal deficit Results Labs 02/01/24 12:54 02/01/24 12:54 Labs: Laboratory Results - last 24 hr 02/01/24 02/01/24 02/01/24 12:49 12:54 15:46 MCV 99.1 H MCH 32.9 MCHC 33.2 RDW 13.2 Plt Count 355 MPV 10.6 Immature Gran % (Auto) 1.3 H Neut % (Auto) 87.0 H Lymph % (Auto) 4.3 L [place] % (Auto) 7.0 Eos % (Auto) 0.1 Baso % (Auto) 0.3 Lymph # (Auto) 1.1 L [place] # (Auto) 1.7 H Eos # (Auto) 0.0 Baso # (Auto) 0.1 Abs Immat Gran (auto) 0.31 H Absolute Neuts (auto) 21.3 H Absolute Nucleated RBC 0.000 Nucleated RBC % (auto) 0.0 Smear Tech's Comments VERIFIED PT 27.5 H D INR 2.3 H APTT 41.3 H Anion Gap 15 Estim Creat Clear Calc 43.1 Estimated GFR > 60 Random Glucose 113 Lactic Acid 1.0 Calcium 10.5 H D Total Bilirubin 0.6 Direct Bilirubin 0.3 AST 19 ALT 11 Alkaline Phosphatase 58 Troponin I High Sens 14.9 Total Protein 6.3 L Albumin 3.3 L Lipase 27 Urine Color Yellow Urine Appearance Clear Urine pH 7.5 Ur Specific [place] 1.010 Urine Protein Negative Urine Glucose (UA) Negative Urine Ketones Negative Urine Blood Negative Urine Nitrite Negative Ur Leukocyte Esterase Trace H Urine RBC 0-2 Urine WBC 0-5 Ur Squamous Epith Cells 0-2 Urine Bacteria None Seen Hyaline Casts 0-2 Stool Occult Blood POSITIVE Imaging Radiologist's Impressions: Impressions Abdomen/Pelvis CT 02/01/24 13:59 IMPRESSION: * Acute diverticulitis of the sigmoid colon. * Mild bilateral hydroureteronephrosis is noted but uncertain whether this is merely due to increased hydrostatic pressure in the setting of a full urinary bladder or perhaps decreased ureteral peristalsis from inflammatory changes in the lower pelvis. * A trace pericardial effusion and small loculated left pleural effusion are unchanged compared to 08/23/2023. Assessment and Plan (1) Acute hypokalemia: Status: Acute (2) Diverticulitis: Status: Acute (3) Melena: Status: Acute Plan An 78 years old lady with PMH of CAD s/p NSTEMI, HFpEF, hx of SAH, chronic hypoxic and hypercapneic respiratory failure due to COPD, Pul HTN on 2L home O2 , KANDY on BiPAP at night, hx of non-small cell lung cancer s/p chemo, radiation, and left upper lobe lobectomy, antiphospholipid antibody syndrome, hx of DVT/PE on Coumadin, and anxiety who presents to the hospital with Abd pain and Melena. Acute sigmoid diverticulitis Not septic CT scan as reported Pending cultures given her multiple allergic reactions will start with Ceftriaxone for now Right lower extremity wound Cellulitis resolved continue daily dressing changes Wound care Acute hypokalemia replacement given, follow BMP Hypercalcemia likely 2/2 dehydration recheck after hydration with IVF History of DVT/PE due to antiphospholipid syndrome INR 2.3, monitor INR - goal 1.5 - 2 due to melena will hold it today INR daily Chronic hypoxic and hypercapnic respiratory failure due to COPD and pulmonary hypertension Stable on 2 L Chronic diastolic CHF Continue Lasix Appears euvolemic Coronary artery disease Continue Coumadin and statin KANDY BiPAP at night Hypothyroid Continue levothyroxine Anxiety Continue diazepam Pending medications reconciliation DVT PPx Warfarin The patient will need 2 overnight hospital stay for treatment of Diverticulitis, Hypokalemia pending final cultures and Full code Quality Stroke Does the patient have a stroke diagnosis?: No VTE Prior VTE?: Yes VTE Risk Level:: Medical - moderate - high VTE Device Contraindication: Treatment Not Indicated VTE Drug Contraindication: N/A - Med Ordered
--- OUTSIDE RECORDS SUMMARY | 2024-02-01 16:54 | XMS_ITS | Continuity of Care Document ---
Author Organization [facility] Address [address] [place] [address]- Care Team Providers Care Acid Regenerator Name Role Phone Caitlyn Bowie MD Primary Care Physician Encounter [facility] Date(s): 12/26/23 - 01/25/24 [facility] [address] [place], [place] [address] Allergies, [...] Stop Date: 04/23/23 Status: Ordered nystatin topical [id number] u/gm powder 1 application, Topically, 3 times [...] Role: Primary Care Nurse Address: Address: [address] [place] [address]- [place] Name: Toyin Doherty RN Position: [facility] RN Member Role: Primary Care Nurse Name: Eben Hernandez NP Position: [facility] Associate Professional Member Role: Lifetime Consulting Provider Address: Address: [address] [place] [address]- Name: Alejandrina Turner RN Position: [facility] RN Member Role: Primary Care Nurse Name: Zoraida Felix RN Position: [facility] ED RN W/OE and Tasks Member Role: Primary Care Nurse Name: Jaye Harley Position: [facility] [place] Applier Member Role: Ledge Man Name: Daphne Hooker RN Position: [facility] RN Member Role: Primary Care Nurse Name: Caitlyn Bowie MD Position: [facility] Physician - Primary Care Member Role: PCP Address: Address: [address] [place] [address]- [place] Name: Kiki Abdi RN Position: [facility] RN Member Role: Primary Care Nurse Name: Marry Reza Position: [facility] RN Member Role: Primary Care Nurse Name: Veronica Hurst [place] Position: [facility] JAY Office Staff Member Role: Lifetime Consulting Physician Name: Maddie Herrera RN Position: [facility] AMB Nurse Member Role: Primary Care Nurse Name: Yudith Herrera RN Position: [facility] Onco RN Member Role: Primary Care Nurse Name: Raegan Baptiste RN Position: [facility] RN Member Role: Primary Care Nurse Name: She Pool RN Position: [facility] RN Member Role: Primary Care Nurse Name: Kaila Latham RN Position: [facility] RN Member Role: Primary Care Nurse Name: Julio C Bahena RN Position: [facility] RN Member Role: Primary Care Nurse Name: Nasima Heredia RN Position: [facility] RN Member Role: Primary Care Nurse Name: Daphne Barton RN Position: [facility] RN Member Role: Primary Care Nurse Name: Katherine Long RN Position: [facility] RN Member Role: Primary Care Nurse Name: Norma Serrano RN Position: [facility] RN Member Role: Primary Care Nurse Name: Seven Kelly RN Position: [facility] ED RN W/OE and Tasks Member Role: Primary Care Nurse Name: Fani Perez RN Position: [facility] RN Member Role: Primary Care Nurse Name: Hattie Brewster RN Position: [facility] RN Member Role: Primary Care Nurse Name: Kelly Hernandez RN Position: [facility] RN Member Role: Primary Care Nurse Name: Pallavi Wylie LPN Position: [facility] RN Member Role: Primary Care Nurse Name: Parris Zuluaga RN Position: [facility] RN Member Role: Primary Care Nurse Care Team Related Persons Name: MARK ZENAIDA Address: [place], [place] Name: TIA RIVERS Address: [place] [address] Name: JOHANN RETANA Address: [place] [address]
--- OUTSIDE RECORDS SUMMARY | 2024-02-01 16:54 | XMS_ITS | Continuity of Care Document ---
Author Organization [facility] Address [address] [place] [address]- Care Team Providers Care Oil Field Roustabout Name Role Phone Caitlyn Bowie MD Primary Care Physician [phone] Encounter [facility] Date(s): 12/29/23 - 01/28/24 [facility] [address] [place], [place] [address] Allergies, Adverse Reactions, [...] Stop Date: 04/23/23 Status: Ordered nystatin topical [id number] u/gm powder 1 application, Topically, 3 times [...] Care Team Personnel Name: Val Wynne Position: [facility] Onco RN Member Role: Primary Care Nurse Name: Shilpi Mattson Position: Reference Physician Member Role: Primary Care Nurse Address: Address: [address] [place] [address]- [place] Name: Toyin Doherty RN Position: [facility] RN Member Role: Primary Care Nurse Name: Eben Hernandez NP Position: [facility] Associate Professional Member Role: Lifetime Consulting Provider Address: Address: [address] [place] [address]- Name: Alejandrina Turner RN Position: [facility] RN Member Role: Primary Care Nurse Name: Zoraida Felix RN Position: [facility] ED RN W/OE and Tasks Member Role: Primary Care Nurse Name: Jaye Harley Position[facility] Vehicle Refinisher Member Role: Eye Physician Name: Daphne Hooker RN Position: [facility] RN Member Role: Primary Care Nurse Name: Caitlyn Bowie MD Position: [facility] Physician - Primary Care Member Role: PCP Address: Address: [address] [place] [address]- Name: Kiki Abdi RN Position: [facility] RN Member Role: Primary Care Nurse Name: Marry Reza Position: [facility] RN Member Role: Primary Care Nurse Name: Veronica Hurst [place] Position: [facility] JAY Office Staff Member Role: Lifetime Consulting Physician Name: Maddie Herrera RN Position: [facility] AMB Nurse Member Role: Primary Care Nurse Name: Yudith Herrera RN Position: [facility] Onco RN Member Role: Primary Care Nurse Name: Raegan Baptiste RN Position: [facility] RN Member Role: Primary Care Nurse Name: She Pool RN Position: [facility] RN Member Role: Primary Care Nurse Name: Kaila Latham RN Position: [facility] RN Member Role: Primary Care Nurse Name: Julio C Bahena RN Position: [facility] RN Member Role: Primary Care Nurse Name: Nasima Heredia RN Position: [facility] RN Member Role: Primary Care Nurse Name: Daphne Barton RN Position: [facility] RN Member Role: Primary Care Nurse Name: Katherine Long RN Position: [facility] RN Member Role: Primary Care Nurse Name: Norma Serrano RN Position: [facility] RN Member Role: Primary Care Nurse Name: Seven Kelly RN Position: [facility] ED RN W/OE and Tasks Member Role: Primary Care Nurse Name: Fani Perez RN Position: [facility] RN Member Role: Primary Care Nurse Name: Hattie Brewster RN Position: [facility] RN Member Role: Primary Care Nurse Name: Kelly Hernandez RN Position: [facility] RN Member Role: Primary Care Nurse Name: Pallavi Wylie LPN Position: [facility] RN Member Role: Primary Care Nurse Name: Parris Zuluaga RN Position: [facility] RN Member Role: Primary Care Nurse Care Team Related Persons Name: ZENAIDA FLORES Address: [place] [address] Name: TIA RIVERS Address: [place] [address] Name: JOHANN RETANA Address: [place] [address]
--- OUTSIDE RECORDS SUMMARY | 2024-02-01 16:57 | XMS_ITS | Continuity of Care Document ---
Author Organization [facility] Address [address] [place] [address]- Care Team Providers Care Shag Truck Driver Name Role Phone Caitlyn Bowie MD Primary Care Physician [phone] Encounter [facility] Date(s): 12/18/23 - 01/17/24 [facility] [address] [place], [place] [address] Allergies, Adverse Reactions, Alerts Substance [...] Stop Date: 04/23/23 Status: Ordered nystatin topical [id number] u/gm powder 1 application, Topically, 3 times [...] Role: Primary Care Nurse Address: Address: [address] [place] [address]- [place] Name: Toyin Doherty RN Position: [facility] RN Member Role: Primary Care Nurse Name: Eben Hernandez NP Position: [facility] Associate Professional Member Role: Lifetime Consulting Provider Address: Address: [address] [place] [address]- Name: Alejandrina Turner RN Position: [facility] RN Member Role: Primary Care Nurse Name: Zoraida Felix RN Position: [facility] ED RN W/OE and Tasks Member Role: Primary Care Nurse Name: Jaye Harley Position: [facility] Adjuster Electrical Contacts Member Role: Test Tech Name: Daphne Hooker RN Position: [facility] RN Member Role: Primary Care Nurse Name: Caitlyn Bowie MD Position: [facility] Physician - Primary Care Member Role: PCP Address: Address: [address] [place] [address]- [place] Name: Kiki Abdi RN Position: [facility] RN Member Role: Primary Care Nurse Name: Marry Reza Position: [facility] RN Member Role: Primary Care Nurse Name: Veronica Hurst [place] Position: [facility] JAY Office Staff Member Role: Lifetime Consulting Physician Name: Maddie Herrera RN Position: [facility] AMB Nurse Member Role: Primary Care Nurse Name: Yudith Herrera RN Position: [facility] Onco RN Member Role: Primary Care Nurse Name: Raegan Baptiste RN Position: [facility] RN Member Role: Primary Care Nurse Name: She Pool RN Position: [facility] RN Member Role: Primary Care Nurse Name: Kaila Latham RN Position: [facility] RN Member Role: Primary Care Nurse Name: Julio C Bahena RN Position: [facility] RN Member Role: Primary Care Nurse Name: Nasima Heredia RN Position: [facility] RN Member Role: Primary Care Nurse Name: Daphne Barton RN Position: [facility] [...] Team Related Persons Name: MARK ZENAIDA Address: [place], [place] Name: TIA RIVERS Address: [place] [address] Name: JOHANN RETANA Address: [place] [address]
--- OUTSIDE RECORDS SUMMARY | 2024-02-01 17:12 | XMS_ITS | Continuity of Care Document ---
Author Organization [facility] Address [address] [place] [address]- Care Team Providers Care Gynaecological Oncologist Name Role Phone Caitlyn Bowie MD Primary Care Physician [phone] Encounter [facility] Date(s): 12/18/23 - 01/17/24 [facility] [address] [place], [place] [address] Allergies, Adverse Reactions, Alerts Substance Reaction Severity Status ciprofloxacin Active penicillin 1 Active barium sulfate Active gentamicin Active clindamycin [...] Stop Date: 04/23/23 Status: Ordered nystatin topical 140778 u/gm powder 1 application, Topically, 3 times [...] team information Care Team Personnel Name: SherrellLauren alfaroricia Position: [facility] Onco RN Member Role: Primary Care Nurse Name: Shilpi Mattson Position: Reference Physician Member Role: Primary Care Nurse Address: Address: [address] [place] [address]- [place] Name: Toyin Doherty RN Position: [facility] RN Member Role: Primary Care Nurse Name: Eben Hernandez NP Position: [facility] Associate Professional Member Role: Lifetime Consulting Provider Address: Address: [address] [place] [address]- Name: Alejandrina Turner RN Position: [facility] RN Member Role: Primary Care Nurse Name: Zoraida Felix RN Position: [facility] ED RN W/OE and Tasks Member Role: Primary Care Nurse Name: Jaye Harley Position: [facility] Monitor And Storage Bin Tender Member Role: School Vocational Educator Name: Daphne Hooker RN Position: [facility] RN Member Role: Primary Care Nurse Name: Caitlyn Bowie MD Position: [facility] Physician - Primary Care Member Role: PCP Address: Address: [address] [place] [address]- [place] Name: Kiki Abdi RN Position: [facility] RN Member Role: Primary Care Nurse Name: Marry Reza Position: [facility] RN Member Role: Primary Care Nurse Name: Veronica Hurst [place] Position: [facility] JAY Office Staff Member Role: Lifetime Consulting Physician Name: Maddie Herrera RN Position: [facility] AMB Nurse Member Role: Primary Care Nurse Name: Yudith Herrera RN Position: [facility] Onco RN Member Role: Primary Care Nurse Name: Raegan Baptiste RN Position: [facility] RN Member Role: Primary Care Nurse Name: She Pool RN Position: [facility] RN Member Role: Primary Care Nurse Name: Kaila Latham RN Position: [facility] RN Member Role: Primary Care Nurse Name: Julio C Bahena RN Position: [facility] RN Member Role: Primary Care Nurse Name: Nasima Heredia RN Position: [facility] RN Member [...] Name: Hattie Brewster RN Position: [facility] RN Member Role: Primary Care Nurse Name: Kelly Hernandez RN Position: [facility] RN Member Role: Primary Care Nurse Name: Pallavi Wylie LPN Position: [facility] RN Member Role: Primary Care Nurse Name: Parris Zuluaga RN Position: [facility] RN Member Role: Primary Care Nurse Care Team Related Persons Name: MARK ZENAIDA Address: [place], [place] Name: TIA RIVERS Address: [place] [address] Name: JOHANN RETANA Address: [place] [address]
--- OUTSIDE RECORDS SUMMARY | 2024-02-01 17:28 | XMS_ITS | Patient Health Record ---
Author Organization [facility] Address [address] [place] [id number] Care Team Providers Care Insurance Defense Attorney Name Role Phone Shruti Bowieberly Primary Care Provider Cristian Fountain Unavailable [phone] ALLERGIES Allergen (clinical drug ingredient) Drug/Non Drug Allergy documented on EMR Reaction Allergy Type Onset Date Status vancomycin Vancomycin Unknown Drug Allergy Activ e novacain (uncoded) Unknown Allergy A ctive Penicillin Unknown Drug Allergy Active gentamicin gentomycin (uncoded) Unknown Allergy Active voltarin (uncoded) Unknown Allergy A [...] ciprofloxacin Cipro Unknown Drug Allergy Act esmer Biaxin Unknown Drug Allergy Active moxifloxacin Avelox Unknown Drug Allergy Acti ve ipitromium bromide (uncoded) Unknown Allergy Active Avocado Avocado Unknown Allergy Active some muscle relaxers (uncoded) Unknown Allergy Active REASON FOR REFERRAL No Information MEDICATIONS Medication [...] confirmed Irritable bowel syndrome characterized by constipation (406692349) Problem Diverticulitis (K57.92) Active confirmed Diverticulitis (618940300) Problem GERD (gastroesophageal reflux disease) (K21.9) Active confirmed Gastroesophagea l reflux disease (039017265) PLAN OF TREATMENT No Information Insurance Providers Payer Name Payer Address Payer Phone Subscriber Number Group Number Insured Name Patient Relationship to Insured Coverage Start Date Coverage End Date MEDICARE OF [place] [address] [place] [address] [id number] SHIRLEY CINDA Self - patient is the insured [employer] ATT[employer] CLAIMS [address] [place] [phone] [id number] DANIEL WATSONE Self - patient is the insured MEDICAL (GENERAL) HISTORY Medical History History ICD Code TX-04/2021-sees Dr. Cadet--describes a negative cardiac cath Lung [...] a nd Antiphospholipid antibody--has had DVT's and PE's---Bleacher Lard at [place] and Dr. Hogan at [facility]-has had EGD's with Dr. Gomes Pneumomias Hypothyroidism Surgical History Surgery Date(Month/Year) Tonsils and adenoids BOLA Lung cancer[facility] Chemo 2008
--- NOTE | 2024-02-01 17:40 | PHA.MEDREC ---
Addendum entered by Radu Shetty RPh 02/01/24 18:01: Reviewed by [facility] Original Note: Pharmacy Consult ? Medication Reconciliation Pharmacy has completed the medication reconciliation. Confirmed medications with list provided by [facility]. Also confirmed Warfarin dosing with patient and patient confirmed she doses it depending on how her INR levels are (Range 1.5-2) she did 1.5mg last night 01/30
[2024-02-01] MEDS: Lactated Ringers 1,000 ML 80 ML IVCONT (17:47)
[2024-02-01 18:21] VITALS: BP 128/58; PULSE 89; RESP 16; TEMP 37; O2SAT 100
--- NOTE | 2024-02-01 18:21 | PC.NURSE ---
this RN received report from AVELINO Mendoza in main ED at this time. pt transported to overflow unit at this time a&ox4. vss and up to date. pt presents to the ED from SNF w/ gradual generalized abd pain/constipation/black tarry stool after taking laxative. pt currently rating pain in abd an 02/16. nonradiating. denies fever/chills/n/v. pt currently on 2L via NC which is her baseline d/t hx of pulmonary HTN/CHF/COPD. walker baseline for ambulation. LR running @ 80mls/hr via 20gIV in the left AC - patent/intact. pt currently seems to be in no apparent distress. no sob/wob noted. respirations even/unlabored. pt currently waiting for bed assignment at this time. bed alarm turned on for safety precautions. plan of care ongoing. call ma placed within reach.
--- NOTE | 2024-02-01 18:25 | MHC.EDTECH ---
Patient inc therefore patient abdoul changed and switched to inpat bed
[2024-02-01 19:32] VITALS: BP 113/55; PULSE 89; RESP 16; TEMP 36.7; O2SAT 100
--- NOTE | 2024-02-01 19:55 | PC.NURSE ---
Patient states that she is very cold and I don't want to get pneumonia . Pt has been given 7 warm blankets with minimal relief of feeling warmer. Pt requested to be moved back to the main ED from Overflow ED due to cold room temperature. I spoke with the tank charger who agreed to move the patient from Overflow ED 2 to ED 15 for comfort. Patient is otherwise pleasant, calm, cooperative. LR continues to infuse at rate of 80 ml/hour as ordered. Oxygen flowing via nasal cannula at 2LPM. RN to RN report given to Francisco YOU at 20:05 over the phone. Preparing to move to ED Bed 15.
[2024-02-01 20:49] VITALS: PULSE 77
[2024-02-01] MEDS: Metoprolol Succinate ER 50 MG TAB.ER.24H PO (20:49)
[2024-02-01] MEDS: traZODone HCL 100 MG TABLET PO (20:50)
--- NOTE | 2024-02-01 22:19 | PC.NURSE ---
pt reports 8/10 pain of abd/RLE however refusing medications/interventions at this time. pt reports she feels comfortable enough and will try to sleep. pt given 2100 meds tolerated po. nad. warm blanket given. call ma within reach.
[2024-02-02] VITALS (10 sets, daily range): BP systolic 99–121; BP diastolic 50–63; PULSE 73–86; RESP 16–18; TEMP 36–37.1; O2SAT 97–100
--- NOTE | 2024-02-02 00:31 | PC.RT ---
Pt refused BIPAP
[2024-02-02] MEDS: diazePAM 5 MG TABLET PO ×2 (03:29→14:26)
[2024-02-02] MEDS: Lactated Ringers 1,000 ML 80 ML IVCONT (05:29)
[2024-02-02 06:06] LABS: MANUAL DIFF FLAG NO
[2024-02-02 06:15] LABS: Basophils Absolute Auto 0.1 X10*3/uL (0.0-0.2); Basophils Percent Auto 0.4 % (0-2); Eosinophils Absolute Auto 0.1 X10*3/uL (0.0-0.4); Eosinophils Percent Auto 0.5 % (0-4); Hemoglobin 8.4 g/dl (12.0-16.0); Imm Gran Abs Auto 0.26 X10*3/uL (0.00-0.03); Imm Gran Pct Auto 1.7 % (0.0-0.4); Lymphocytes Percent Auto 6.1 % (20-40); Mean Corpuscular HGB Conc 32.3 g/dl (31.0-35.0); Mean Corpuscular Hemoglobin 32.3 pg (27.0-33.0); Mean Platelet Volume 10.9 fL (9.4-12.3); Monocytes Absolute Auto 1.4 X10*3/uL (0.1-1.2); Monocytes Percent Auto 9.2 % (2-11); Neutrophils Absolute Auto 12.8 x10*3/uL (2.0-8.3); Neutrophils Percent Auto 82.1 % (45-73); Platelet Count 286 X10*3/uL (160-400); Red Cell Distribution Width 13.3 % (11.0-16.0); White Blood Count 15.6 X10*3/uL (4.8-10.8)
[2024-02-02 06:22] LABS: Anion Gap 11 (12-20); Blood Urea Nitrogen 11 mg/dL (9-16); Calcium 9.8 mg/dL (8.4-10.2); Carbon Dioxide 33 mmol/L (22-29); Chloride 95 mmol/L (96-108); Creatinine Clr Calc Pharmacy 47.5; Estimated Glomerular Filt Rate > 60; Glucose Random 89 mg/dL (60-115); Potassium 3.3 mmol/L (3.3-5.1); Sodium 136 mmol/L (135-145)
[2024-02-02] MEDS: Levothyroxine Sodium 25 MCG TABLET PO (06:37)
--- NOTE | 2024-02-02 06:40 | PC.NURSE ---
Patient arrived on floor at 0630, states she had abdominal pain from inability to void. States she felt she had to urinate in the ED, and that they placed a purewick and she voided a small amt, per pt. but did not feel bladder emptied. Bladder scanned at 0640 for 333mL
[2024-02-02 09:05] LABS: INTERNATIONAL NORM RATIO 2.1 (0.9-1.1); Prothrombin Time 25.4 SEC (11.1-13.3)
[2024-02-02] MEDS: Chlorhexidine Gluc Oral Rinse 15 ML MOUTHWASH BUCCAL ×2 (09:32→20:18)
[2024-02-02] MEDS: Potassium Chloride Packet 20 MEQ PACKET PO (09:33)
[2024-02-02] MEDS: Fluticasone Propionate Nasal 16 GM SPRAY 2 SPRAY NOSTRIL-B (09:36)
[2024-02-02] MEDS: Montelukast Sodium 10 MG TABLET PO (09:36)
[2024-02-02] MEDS: Docusate Sodium 100 MG CAPSULE PO (09:36)
[2024-02-02] MEDS: Ferrous Sulfate 324 MG TABLET.DR PO (09:36)
[2024-02-02] MEDS: predniSONE 2.5 MG TABLET PO (09:36)
[2024-02-02] MEDS: 0.9 % Sodium Chloride Flush 3 ML SYRINGE IVFLUSH ×3 (09:37→21:34)
[2024-02-02] MEDS: Atorvastatin Calcium 40 MG TABLET PO (09:42)
[2024-02-02] MEDS: Furosemide 40 MG TABLET 80 MG PO (11:16)
[2024-02-02] MEDS: Metoprolol Succinate ER 50 MG TAB.ER.24H PO ×2 (11:16→20:17)
--- NOTE | 2024-02-02 11:50 | MHC.CM.PN ---
Addendum entered by Briana Walker RN 02/02/24 14:04: Patient prefers [facility]. Original Note: IMM delivered. Patient comes to [facility] from [facility]. However resides in a home alone. Has a TUB ATTENDANT 2 days/wk for a total of 6.5 hours. Is on 2L O2 and BiPAP at night. [employer] is supplier. Reports she does not use any AD's at baseline. PCP Caitlyn WALLACE/KEIRA on file and verified. DP: PT rec STR. Patient does not wish to return to [facility]. Has been to [facility] and would not return there. Prefers [facility], but understands they may not offer a bed. List of local SNF's provided. Awaiting preferences. CM will continue to follow.
[2024-02-02] MEDS: Fluticasone/Vilanterol 200/25 BLST.W.DEV 1 PUFF INHALE (11:54)
--- NOTE | 2024-02-02 11:55 | P.PNIM_ITS ---
Subjective Subjective Date of Service: 02/02/24 Interval History: seen and evaluated this morning feels better overall no bleeding or fever no other overnight events Review of Systems Review of Systems: Yes all other systems are reviewed and are negative Physical Exam 2 Vital Signs: Vital Signs: Last Vital Signs Temp 98.7 F 02/02/24 11:26 Pulse 76 02/02/24 11:26 Resp 17 02/02/24 11:26 BP 121/60 02/02/24 11:26 Pulse Ox 100 02/02/24 11:26 O2 Del Method Nasal Cannula 02/02/24 11:26 O2 Flow Rate 2 02/02/24 11:26 Oxygen Flow Rate 2 02/01/24 12:17 BMI result Body Mass Index 22.8 Const: Other: Constitutional : Awake, interactive, not in distress Neck : Normal inspection, Supple Cardiovascular : RRR, no JVP, no lower extremity edema Respiratory : good bilateral air entry, no crackles, wheezes or rhonchi Gastrointestinal: soft, lax, Normal bowel sounds, LLQ mild tenderness, no guarding or surgical signs Skin : Warm, Dry, open RLE wound looks good, no signs of infection, resolved surrounding erythema, covered in dressing Neurological : Alert & oriented x3, No focal deficit Objective Data Active Medications Acetaminophen (Acetaminophen 325 Mg Tablet) 650 mg PO Q6H PRN PRN Reason: Pain, Mild (Pain Scale 1-3), fever or headache Al Hydroxide/Mg Hydroxide (Magnesium Hydrox/Alum Hydrox 30 Ml Oral.Susp) 30 ml PO Q4H PRN PRN Reason: Heartburn Albuterol Sulfate (Albuterol Sulfate (0.083%) 2.5 Mg/3 Ml Vial.Neb) 2.5 mg INHALE Q4H PRN PRN Reason: Shortness of Breath/Wheezing Atorvastatin Calcium (Atorvastatin Calcium 40 Mg Tablet) 40 mg PO MOWEFR [facility] Last Admin: 02/02/24 09:42 Dose: 40 mg Documented By: AFTAB Bisacodyl (Bisacodyl 10 Mg Supp.Rect) 10 mg RI DAILY PRN PRN Reason: No BM x3 days MoM not effective Calcium Carbonate (Calcium Carbonate 750 Mg Tab.Chew) 750 mg PO Q4H PRN PRN Reason: Heartburn Chlorhexidine Gluconate (Chlorhexidine Gluc Oral Rinse 15 Ml Mouthwash) 15 ml BUCCAL BID [facility] Last Admin: 02/02/24 09:32 Dose: 15 ml Documented By: AFTAB Diazepam (Diazepam 5 Mg Tablet) 5 mg PO TID PRN PRN Reason: anxiety/restlessness Last Admin: 02/02/24 03:29 Dose: 5 mg Documented By: NAHOMI Docusate Sodium (Docusate Sodium 100 Mg Capsule) 100 mg PO DAILY [facility] Last Admin: 02/02/24 09:36 Dose: 100 mg Documented By: AFTAB Ferrous Sulfate (Ferrous Sulfate 324 Mg Tablet.Dr) 324 mg PO DAILY [facility] Last Admin: 02/02/24 09:36 Dose: 324 mg Documented By: AFTAB Fluticasone Propionate (Fluticasone Propionate Nasal 16 Gm [place]) 2 spray NOSTRIL-B DAILY [facility] Last Admin: 02/02/24 09:36 Dose: 2 spray Documented By: AFTAB Fluticasone/Vilanterol (Fluticasone/Vilanterol 200/25 Blst.W.Dev) 1 puff INHALE RDAILY [facility] Furosemide (Furosemide 40 Mg Tablet) 80 mg PO DAILY [facility]; Protocol Last Admin: 02/02/24 11:16 Dose: 80 mg Documented By: AFTAB Guaifenesin (Guaifenesin 200 Mg/10 Ml 10 Ml Liquid) 400 ml PO TID PRN PRN Reason: Cough Hydromorphone HCl (Hydromorphone Hcl 1 Mg/Ml Syringe) 0.25 mg IVPUSH Q4H PRN; Protocol PRN Reason: Pain, Severe (Pain Scale 7-10) Ceftriaxone Sodium 1 gm/ (Sodium Chloride) 50 mls @ 100 mls/hr IV Q24H [facility] Levothyroxine Sodium (Levothyroxine Sodium 50 Mcg Tablet) 50 mcg PO SuSa@0600 [facility] Levothyroxine Sodium (Levothyroxine Sodium 25 Mcg Tablet) 25 mcg PO MoTuWeThFr@0600 [facility] Last Admin: 02/02/24 06:37 Dose: 25 mcg Documented By: MÓNICA Magnesium Hydroxide (Milk Of Magnesia 30 Ml Oral.Susp) 30 ml PO DAILY PRN PRN Reason: Constipation Magnesium Hydroxide (Milk Of Magnesia 30 Ml Oral.Susp) 30 ml PO DAILY PRN PRN Reason: Constipation, No BM in 3 days Melatonin (Melatonin 3 Mg Tablet) 6 mg PO BEDTIME PRN PRN Reason: Insomnia Metoprolol Succinate (Metoprolol Succinate Er 50 Mg Tab.Er.24h) 50 mg PO BID [facility]; Protocol Last Admin: 02/02/24 11:16 Dose: 50 mg Documented By: AFTAB Metoprolol Succinate (Metoprolol Succinate Er 50 Mg Tab.Er.24h) 50 mg PO BID [facility]; Protocol Last Admin: 02/02/24 11:20 Dose: Not Given Documented By: AFTAB Non-Admin Reason: pt states metoprolol dose is 50mg Montelukast Sodium (Montelukast Sodium 10 Mg Tablet) 10 mg PO DAILY [facility] Last Admin: 02/02/24 09:36 Dose: 10 mg Documented By: AFTAB Ondansetron HCl (Ondansetron Hcl 4 Mg/2 Ml Vial) 4 mg IVPUSH Q8H PRN PRN Reason: Nausea and Vomiting Oxycodone HCl (Oxycodone Hcl Immed Release 5 Mg Tablet) 5 mg PO Q6H PRN PRN Reason: Pain, Moderate(Pain Scale 4-6) Potassium Chloride (Potassium Chloride Packet 20 Meq Packet) 20 meq PO DAILY [facility] Last Admin: 02/02/24 09:33 Dose: 20 meq Documented By: AFTAB Prednisone (Prednisone 2.5 Mg Tablet) 2.5 mg PO Q48H [facility] Last Admin: 02/02/24 09:36 Dose: 2.5 mg Documented By: AFTAB Sodium Biphosphate/Sodium Phosphate (Sodium Phosphate,Butts-Dibasic 133 Ml Enema) 133 ml RI DAILY PRN PRN Reason: Constipation Sodium Chloride (0.9 % Sodium Chloride Flush 3 Ml Syringe) 3 ml IVFLUSH QSHIFT [facility] Last Admin: 02/02/24 09:37 Dose: 3 ml Documented By: AFTAB Trazodone HCl (Trazodone Hcl 100 Mg Tablet) 100 mg PO BEDTIME [facility] Last Admin: 02/01/24 20:50 Dose: 100 mg Documented By: TENISHA Warfarin Sodium (Warfarin Sodium 0.5 Mg Halftab) 0.5 mg PO DAILY@1800 [facility] Labs 02/02/24 05:30 02/02/24 05:30 Labs: Laboratory Results - last 24 hr 02/01/24 02/01/24 02/01/24 12:49 12:54 15:46 MCV 99.1 H MCH 32.9 MCHC 33.2 RDW 13.2 Plt Count 355 MPV 10.6 Immature Gran % (Auto) 1.3 H Neut % (Auto) 87.0 H Lymph % (Auto) 4.3 L Butts % (Auto) 7.0 Eos % (Auto) 0.1 Baso % (Auto) 0.3 Lymph # (Auto) 1.1 L Butts # (Auto) 1.7 H Eos # (Auto) 0.0 Baso # (Auto) 0.1 Abs Immat Gran (auto) 0.31 H Absolute Neuts (auto) 21.3 H Absolute Nucleated RBC 0.000 Nucleated RBC % (auto) 0.0 Smear Tech's Comments VERIFIED PT 27.5 H D INR 2.3 H APTT 41.3 H Anion Gap 15 Estim Creat Clear Calc 43.1 Estimated GFR > 60 Random Glucose 113 Lactic Acid 1.0 Calcium 10.5 H D Total Bilirubin 0.6 Direct Bilirubin 0.3 AST 19 ALT 11 Alkaline Phosphatase 58 Troponin I High Sens 14.9 Total Protein 6.3 L Albumin 3.3 L Lipase 27 Urine Color Yellow Urine Appearance Clear Urine pH 7.5 Ur Specific [place] 1.010 Urine Protein Negative Urine Glucose (UA) Negative Urine Ketones Negative Urine Blood Negative Urine Nitrite Negative Ur Leukocyte Esterase Trace H Urine RBC 0-2 Urine WBC 0-5 Ur Squamous Epith Cells 0-2 Urine Bacteria None Seen Hyaline Casts 0-2 Stool Occult Blood POSITIVE 02/02/24 02/02/24 05:30 08:39 MCV 100.0 H MCH 32.3 MCHC 32.3 RDW 13.3 Plt Count 286 MPV 10.9 Immature Gran % (Auto) 1.7 H Neut % (Auto) 82.1 H Lymph % (Auto) 6.1 L Butts % (Auto) 9.2 Eos % (Auto) 0.5 Baso % (Auto) 0.4 Lymph # (Auto) 1.0 L Butts # (Auto) 1.4 H Eos # (Auto) 0.1 Baso # (Auto) 0.1 Abs Immat Gran (auto) 0.26 H Absolute Neuts (auto) 12.8 H Absolute Nucleated RBC 0.000 Nucleated RBC % (auto) 0.0 Smear Tech's Comments PT 25.4 H INR 2.1 H APTT Anion Gap 11 L Estim Creat Clear Calc 47.5 Estimated GFR > 60 Random Glucose 89 Lactic Acid Calcium 9.8 D Total Bilirubin Direct Bilirubin AST ALT Alkaline Phosphatase Troponin I High Sens Total Protein Albumin Lipase Urine Color Urine Appearance Urine pH Ur Specific [place] Urine Protein Urine Glucose (UA) Urine Ketones Urine Blood Urine Nitrite Ur Leukocyte Esterase Urine RBC Urine WBC Ur Squamous Epith Cells Urine Bacteria Hyaline Casts Stool Occult Blood Microbiology Microbiology Results: Microbiology 02/01/24 15:49 Blood Culture - Preliminary Blood - Venous Assessment and Plan (1) Acute hypokalemia: Status: Acute (2) Diverticulitis: Status: Acute Plan An 78 years old lady with PMH of CAD s/p NSTEMI, HFpEF, hx of SAH, chronic hypoxic and hypercapneic respiratory failure due to COPD, Pul HTN on 2L home O2 , KANDY on BiPAP at night, hx of non-small cell lung cancer s/p chemo, radiation, and left upper lobe lobectomy, antiphospholipid antibody syndrome, hx of DVT/PE on Coumadin, and anxiety who presents to the hospital with Abd pain and Melena. Acute sigmoid diverticulitis Not septic CT scan as reported Pending cultures given her multiple allergic reactions will continue with Ceftriaxone only for now Right lower extremity wound Cellulitis resolved continue daily dressing changes Wound care Acute hypokalemia resolved, follow BMP acute Hypercalcemia likely 2/2 dehydration resolved with IVF. Acute on chronic anemia no clear blood loss, likely dilutional with IVF usage monitor for bleeding and follow CBC get GI eval if bleeding History of DVT/PE due to antiphospholipid syndrome INR 2.1, monitor INR - goal 1.5 - 2 due to melena will give 0.5mg today INR daily Chronic hypoxic and hypercapnic respiratory failure due to COPD and pulmonary hypertension Stable on 2 L Chronic diastolic CHF Continue Lasix Appears euvolemic Coronary artery disease Continue Coumadin and statin KANDY BiPAP at night Hypothyroid Continue levothyroxine Anxiety Continue diazepam DVT PPx Warfarin The patient will need overnight hospital stay for treatment of Diverticulitis, Hypokalemia pending final cultures and Full code Quality Stroke Does the patient have a stroke diagnosis?: No VTE Prior VTE?: Yes VTE Risk Level:: Medical - moderate - high VTE Device Contraindication: Treatment Not Indicated VTE Drug Contraindication: N/A - Med Ordered
[2024-02-02] MEDS: cefTRIAXone sodium 1 GM in 0.9 % Sodium Chloride 50 ML IV (14:27)
--- NOTE | 2024-02-02 17:21 | PC.NURSE ---
Wet to Dry dressing completed, pt tolerated well. Granulation tissue, no odor, mod SS drainage, tamie wound slightly macerated. No s/s infection.
--- NOTE | 2024-02-02 19:51 | PC.NURSE ---
Assumed care of this pt at approx 1530. Pt alert and oriented x4, She perseverated upon needing a dressing change to her leg and rang persistently despite being told the doctor was being contacted for orders. Once orderes in the charge coordinator changed the dressing. Pt then c/o the dressing not being right Pt aware wound consult is pending for further orders. Coumadin brought to patient and discussed INR, note/plan. Pt refused coumadin, Pt showed an email she states is from her supervisor major appliance assembly stating that he would like to trial her off coumadin for a few weeks. Pt states concern for her GI bleed and that her INR was too high at 2.1 with goal of 1.5-2. MD Valentin made aware of pt's fully informed decision. plan of care progressing.
[2024-02-02] MEDS: traZODone HCL 100 MG TABLET PO (20:18)
[2024-02-03] VITALS (7 sets, daily range): BP systolic 105–136; BP diastolic 58–66; PULSE 74–91; RESP 16–18; TEMP 36–36.7; O2SAT 99–100
[2024-02-03] MEDS: Levothyroxine Sodium 50 MCG TABLET PO (05:11)
[2024-02-03] MEDS: Calcium Carbonate 750 MG TAB.CHEW PO (05:16)
[2024-02-03 06:43] LABS: Hematocrit 27.1 % (37.0-47.0); Hemoglobin 8.8 g/dl (12.0-16.0); Mean Corpuscular HGB Conc 32.5 g/dl (31.0-35.0); Mean Corpuscular Hemoglobin 32.1 pg (27.0-33.0); Mean Corpuscular Volume 98.9 fL (80.0-98.0); Platelet Count 282 X10*3/uL (160-400); Red Blood Count 2.74 X10*6/uL (4.20-5.50); Red Cell Distribution Width 13.1 % (11.0-16.0); White Blood Count 11.9 X10*3/uL (4.8-10.8)
[2024-02-03 06:59] LABS: Prothrombin Time 24.7 SEC (11.1-13.3)
[2024-02-03 07:20] LABS: Anion Gap 9 (12-20); Blood Urea Nitrogen 10 mg/dL (9-16); Calcium 9.8 mg/dL (8.4-10.2); Carbon Dioxide 34 mmol/L (22-29); Chloride 95 mmol/L (96-108); Creatinine Clr Calc Pharmacy 51.5; Estimated Glomerular Filt Rate > 60; Glucose Random 103 mg/dL (60-115); Potassium 2.6 mmol/L (3.3-5.1); Sodium 135 mmol/L (135-145)
[2024-02-03] MEDS: Fluticasone/Vilanterol 200/25 BLST.W.DEV 1 PUFF INHALE (08:18)
[2024-02-03] MEDS: Docusate Sodium 100 MG CAPSULE PO (09:02)
[2024-02-03] MEDS: Metoprolol Succinate ER 50 MG TAB.ER.24H PO ×2 (09:02→21:47)
[2024-02-03] MEDS: Furosemide 40 MG TABLET 80 MG PO (09:02)
[2024-02-03] MEDS: Fluticasone Propionate Nasal 16 GM SPRAY 2 SPRAY NOSTRIL-B ×2 (09:03→21:50)
[2024-02-03] MEDS: Potassium Chloride Packet 20 MEQ PACKET 40 MEQ PO ×3 (09:03→13:48)
[2024-02-03] MEDS: Montelukast Sodium 10 MG TABLET PO (09:03)
[2024-02-03] MEDS: Ferrous Sulfate 324 MG TABLET.DR PO (09:03)
[2024-02-03] MEDS: Chlorhexidine Gluc Oral Rinse 15 ML MOUTHWASH BUCCAL ×2 (09:03→21:49)
[2024-02-03] MEDS: 0.9 % Sodium Chloride Flush 3 ML SYRINGE IVFLUSH ×3 (09:04→21:53)
[2024-02-03] MEDS: Potassium Chloride/H20 10 MEQ/100 ML PIGGYBACK 100 MEQ IV ×2 (09:04→10:27)
[2024-02-03] MEDS: Simethicone 80 MG TAB.CHEW PO ×2 (12:52→18:06)
--- NOTE | 2024-02-03 13:15 | HO.PM.IMPN ---
Subjective Subjective Date of Service: 02/03/24 Interval History: seen and evaluated K of 2.6 this monring no bleeding or fever no other overnight events Review of Systems Review of Systems: Yes all other systems are reviewed and are negative Physical Exam Vital Signs: Vital Signs: Last Vital Signs Temp 98.1 F 02/03/24 07:42 Pulse 82 02/03/24 09:02 Resp 18 02/03/24 08:20 BP 120/58 L 02/03/24 09:02 Pulse Ox 100 02/03/24 07:42 O2 Del Method Nasal Cannula 02/03/24 07:42 O2 Flow Rate 2 02/03/24 07:42 Oxygen Flow Rate 2 02/01/24 12:17 BMI result Body Mass Index 22.8 Const: Other: Constitutional : Awake, interactive, not in distress Neck : Normal inspection, Supple Cardiovascular : RRR, no JVP, no lower extremity edema Respiratory : good bilateral air entry, no crackles, wheezes or rhonchi Gastrointestinal: soft, lax, Normal bowel sounds, LLQ mild tenderness, no guarding or surgical signs Skin : Warm, Dry, open RLE wound looks good, no signs of infection, no erythema, covered in dressing Neurological : Alert & oriented x3, No focal deficit Objective Data Active Medications Acetaminophen (Acetaminophen 325 Mg Tablet) 650 mg PO Q6H PRN PRN Reason: Pain, Mild (Pain Scale 1-3), fever or headache Al Hydroxide/Mg Hydroxide (Magnesium Hydrox/Alum Hydrox 30 Ml Oral.Susp) 30 ml PO Q4H PRN PRN Reason: Heartburn Albuterol Sulfate (Albuterol Sulfate (0.083%) 2.5 Mg/3 Ml Vial.Neb) 2.5 mg INHALE Q4H PRN PRN Reason: Shortness of Breath/Wheezing Atorvastatin Calcium (Atorvastatin Calcium 40 Mg Tablet) 40 mg PO MOWEFR [facility] Last Admin: 02/02/24 09:42 Dose: 40 mg Documented By: AFTAB Bisacodyl (Bisacodyl 10 Mg Supp.Rect) 10 mg GA DAILY PRN PRN Reason: No BM x3 days MoM not effective Calcium Carbonate (Calcium Carbonate 750 Mg Tab.Chew) 750 mg PO Q4H PRN PRN Reason: Heartburn Last Admin: 02/03/24 05:16 Dose: 750 mg Documented By: MARY ALICE Chlorhexidine Gluconate (Chlorhexidine Gluc Oral Rinse 15 Ml Mouthwash) 15 ml BUCCAL BID [facility] Last Admin: 02/03/24 09:03 Dose: 15 ml Documented By: AUDIE Diazepam (Diazepam 5 Mg Tablet) 5 mg PO TID PRN PRN Reason: anxiety/restlessness Last Admin: 02/02/24 14:26 Dose: 5 mg Documented By: AFTAB Docusate Sodium (Docusate Sodium 100 Mg Capsule) 100 mg PO DAILY [facility] Last Admin: 02/03/24 09:02 Dose: 100 mg Documented By: AUDIE Ferrous Sulfate (Ferrous Sulfate 324 Mg Tablet.Dr) 324 mg PO DAILY [facility] Last Admin: 02/03/24 09:03 Dose: 324 mg Documented By: AUDIE Fluticasone Propionate (Fluticasone Propionate Nasal 16 Gm [place]) 2 spray NOSTRIL-B BID [facility] Fluticasone/Vilanterol (Fluticasone/Vilanterol 200/25 Blst.W.Dev) 1 puff INHALE RDAILY [facility] Last Admin: 02/03/24 08:18 Dose: 1 puff Documented By: YOLY Furosemide (Furosemide 40 Mg Tablet) 80 mg PO DAILY [facility]; Protocol Last Admin: 02/03/24 09:02 Dose: 80 mg Documented By: AUDIE Guaifenesin (Guaifenesin 200 Mg/10 Ml 10 Ml Liquid) 10 ml PO TID [facility] Hydromorphone HCl (Hydromorphone Hcl 1 Mg/Ml Syringe) 0.25 mg IVPUSH Q4H PRN; Protocol PRN Reason: Pain, Severe (Pain Scale 7-10) Ceftriaxone Sodium 1 gm/ (Sodium Chloride) 50 mls @ 100 mls/hr IV Q24H [facility] Last Infusion: 02/02/24 15:00 Dose: Infused Documented By: CANELO Levothyroxine Sodium (Levothyroxine Sodium 50 Mcg Tablet) 50 mcg PO SuSa@0600 [facility] Last Admin: 02/03/24 05:11 Dose: 50 mcg Documented By: MARY ALICE Levothyroxine Sodium (Levothyroxine Sodium 25 Mcg Tablet) 25 mcg PO MoTuWeThFr@0600 [facility] Last Admin: 02/02/24 06:37 Dose: 25 mcg Documented By: MÓNICA Magnesium Hydroxide (Milk Of Magnesia 30 Ml Oral.Susp) 30 ml PO DAILY PRN PRN Reason: Constipation Magnesium Hydroxide (Milk Of Magnesia 30 Ml Oral.Susp) 30 ml PO DAILY PRN PRN Reason: Constipation, No BM in 3 days Melatonin (Melatonin 3 Mg Tablet) 6 mg PO BEDTIME PRN PRN Reason: Insomnia Metoprolol Succinate (Metoprolol Succinate Er 50 Mg Tab.Er.24h) 50 mg PO BID [facility]; Protocol Last Admin: 02/03/24 09:02 Dose: 50 mg Documented By: AUDIE Montelukast Sodium (Montelukast Sodium 10 Mg Tablet) 10 mg PO DAILY [facility] Last Admin: 02/03/24 09:03 Dose: 10 mg Documented By: AUDIE Ondansetron HCl (Ondansetron Hcl 4 Mg/2 Ml Vial) 4 mg IVPUSH Q8H PRN PRN Reason: Nausea and Vomiting Oxycodone HCl (Oxycodone Hcl Immed Release 5 Mg Tablet) 5 mg PO Q6H PRN PRN Reason: Pain, Moderate(Pain Scale 4-6) Potassium Chloride (Potassium Chloride Packet 20 Meq Packet) 20 meq PO DAILY [facility] Prednisone (Prednisone 2.5 Mg Tablet) 2.5 mg PO Q48H [facility] Last Admin: 02/02/24 09:36 Dose: 2.5 mg Documented By: AFTAB Simethicone (Simethicone 80 Mg Tab.Chew) 80 mg PO QIDWMHS [facility] Last Admin: 02/03/24 12:52 Dose: 80 mg Documented By: AUDIE Sodium Biphosphate/Sodium Phosphate (Sodium Phosphate,[place]-Dibasic 133 Ml Enema) 133 ml GA DAILY PRN PRN Reason: Constipation Sodium Chloride (0.9 % Sodium Chloride Flush 3 Ml Syringe) 3 ml IVFLUSH QSHIFT [facility] Last Admin: 02/03/24 09:04 Dose: 3 ml Documented By: AUDIE Trazodone HCl (Trazodone Hcl 100 Mg Tablet) 100 mg PO BEDTIME [facility] Last Admin: 02/02/24 20:18 Dose: 100 mg Documented By: NYLA Warfarin Sodium (Warfarin Sodium 0.5 Mg Halftab) 0.5 mg PO DAILY@1800 [facility] Last Admin: 07/26/24 18:32 Dose: Not Given Documented By: CANELO Non-Admin Reason: Patient Refused Labs 02/03/24 06:12 02/03/24 06:12 Labs: Laboratory Results - last 24 hr 02/03/24 06:12 MCV 98.9 H MCH 32.1 MCHC 32.5 RDW 13.1 Plt Count 282 MPV 11.0 Absolute Nucleated RBC 0.000 Nucleated RBC % (auto) 0.0 PT 24.7 H INR 2.0 H Anion Gap 9 L Estim Creat Clear Calc 51.5 Estimated GFR > 60 Random Glucose 103 Calcium 9.8 Microbiology Microbiology Results: Microbiology 02/01/24 15:49 Blood Culture - Preliminary Blood - Venous No growth after 24 hours. 02/01/24 16:04 Blood Culture - Preliminary Blood - Venous No growth after 24 hours. Assessment and Plan (1) Acute hypokalemia: Status: Acute (2) Diverticulitis: Status: Acute Plan An 78 years old lady with PMH of CAD s/p NSTEMI, HFpEF, hx of SAH, chronic hypoxic and hypercapneic respiratory failure due to COPD, Pul HTN on 2L home O2 , KANDY on BiPAP at night, hx of non-small cell lung cancer s/p chemo, radiation, and left upper lobe lobectomy, antiphospholipid antibody syndrome, hx of DVT/PE on Coumadin, and anxiety who presents to the hospital with Abd pain and Melena. Acute sigmoid diverticulitis Not BM since admission CT scan as reported IVF Dcd Advance diet Pending final cultures given her multiple allergic reactions will continue with Ceftriaxone only for now Right lower extremity wound improving well, continue daily dressing changes Acute hypokalemia given PO and IV replacmeent, follow BMP acute Hypercalcemia likely 2/2 dehydration resolved with IVF. Acute on chronic anemia no clear blood loss, likely dilutional with IVF usage monitor for bleeding and follow CBC get GI eval if bleeding History of DVT/PE due to antiphospholipid syndrome INR 2, monitor INR - goal 1.5 - 2 due to melena will give 0.5mg today INR daily Chronic hypoxic and hypercapnic respiratory failure due to COPD and pulmonary hypertension Stable on 2 L Chronic diastolic CHF Continue Lasix Appears euvolemic Coronary artery disease Continue Coumadin and statin KANDY BiPAP at night Hypothyroid Continue levothyroxine Anxiety Continue diazepam DVT PPx Warfarin The patient will need overnight hospital stay for treatment of Diverticulitis, Hypokalemia pending final cultures and Potassium level correction Quality Stroke Does the patient have a stroke diagnosis?: No VTE Prior VTE?: Yes VTE Risk Level:: Medical - moderate - high VTE Device Contraindication: Treatment Not Indicated VTE Drug Contraindication: N/A - Med Ordered
[2024-02-03 13:36] LABS: Anion Gap 13 (12-20); Blood Urea Nitrogen 9 mg/dL (9-16); Calcium 9.9 mg/dL (8.4-10.2); Carbon Dioxide 28 mmol/L (22-29); Chloride 99 mmol/L (96-108); Creatinine Clr Calc Pharmacy 50.2; Estimated Glomerular Filt Rate > 60; Glucose Random 115 mg/dL (60-115); Potassium 4.3 mmol/L (3.3-5.1); Sodium 136 mmol/L (135-145)
[2024-02-03] MEDS: guaiFENesin 200 MG/10 ML 10 ML LIQUID PO ×2 (13:47→21:49)
[2024-02-03] MEDS: cefTRIAXone sodium 1 GM in 0.9 % Sodium Chloride 50 ML IV (16:03)
[2024-02-03] MEDS: Warfarin Sodium 0.5 MG HALFTAB PO (18:06)
[2024-02-03] MEDS: traZODone HCL 100 MG TABLET PO (21:48)
[2024-02-04] MEDS: diazePAM 5 MG TABLET PO (02:06)
[2024-02-04 04:00] VITALS: BP 117/54; PULSE 72; RESP 16; TEMP 36; O2SAT 99
[2024-02-04] MEDS: Levothyroxine Sodium 50 MCG TABLET PO (06:33)
[2024-02-04 06:41] LABS: INTERNATIONAL NORM RATIO 1.8 (0.9-1.1); Prothrombin Time 21.9 SEC (11.1-13.3)
[2024-02-04 06:52] LABS: Anion Gap 12 (12-20); Blood Urea Nitrogen 8 mg/dL (9-16); Calcium 9.8 mg/dL (8.4-10.2); Carbon Dioxide 27 mmol/L (22-29); Chloride 99 mmol/L (96-108); Creatinine Clr Calc Pharmacy 48.8; Estimated Glomerular Filt Rate > 60; Glucose Random 90 mg/dL (60-115); Potassium 3.6 mmol/L (3.3-5.1); Sodium 134 mmol/L (135-145)
[2024-02-04 07:21] VITALS: BP 105/53; PULSE 79; RESP 20; TEMP 36.2; O2SAT 99
--- NOTE | 2024-02-04 07:36 | PC.NURSE ---
MD Singh made aware pt refusing wet to dry dressings on right lower leg. Pt requesting xeroform and gauze wrap dressing change instead, MD breaux. Wound care consult pending, pt aware.
[2024-02-04] MEDS: Fluticasone/Vilanterol 200/25 BLST.W.DEV 1 PUFF INHALE (08:20)
[2024-02-04 08:21] VITALS: PULSE 79; RESP 20; O2SAT 99
[2024-02-04 08:44] VITALS: BP 131/66
[2024-02-04] MEDS: Metoprolol Succinate ER 50 MG TAB.ER.24H PO (08:44)
[2024-02-04] MEDS: predniSONE 2.5 MG TABLET PO (08:44)
[2024-02-04] MEDS: Simethicone 80 MG TAB.CHEW PO ×2 (08:44→12:06)
[2024-02-04] MEDS: Furosemide 40 MG TABLET 80 MG PO (08:44)
[2024-02-04] MEDS: Potassium Chloride Packet 20 MEQ PACKET 40 MEQ PO (08:44)
[2024-02-04] MEDS: guaiFENesin 200 MG/10 ML 10 ML LIQUID PO (08:45)
[2024-02-04] MEDS: Montelukast Sodium 10 MG TABLET PO (08:45)
[2024-02-04] MEDS: 0.9 % Sodium Chloride Flush 3 ML SYRINGE IVFLUSH (08:45)
[2024-02-04] MEDS: Chlorhexidine Gluc Oral Rinse 15 ML MOUTHWASH BUCCAL (08:45)
[2024-02-04] MEDS: Docusate Sodium 100 MG CAPSULE PO (08:45)
[2024-02-04] MEDS: Ferrous Sulfate 324 MG TABLET.DR PO (08:45)
[2024-02-04] MEDS: Fluticasone Propionate Nasal 16 GM SPRAY 2 SPRAY NOSTRIL-B (10:54)
--- NOTE | 2024-02-04 11:35 | MHC.CM.PN ---
pts daughter notified of dc today to [facility]
--- NOTE | 2024-02-04 11:46 | PM.DS ---
DS: Providers Provider Date of Service: 02/04/24 Date of admission: 02/01/24 16:30 Primary care physician: Caitlyn Bowie MD Consults: 02/01/24 16:48 Consult to Wound Care Routine Reason for consultation: RLE wound for eval and rec. DS: Diagnosis Discharge Diagnosis (1) Acute hypokalemia: Status: Acute (2) Diverticulitis: Status: Acute (3) Melena: Status: Acute (4) Open wound: Status: Acute (5) Leg wound, right: Status: Acute DS: Summary Hospital Course Hospital Course: Admission note HPI An 78 years old lady with PMH of CAD s/p NSTEMI, HFpEF, hx of SAH, chronic hypoxic and hypercapneic respiratory failure due to COPD, Pul HTN on 2L home O2 , KANDY on BiPAP at night, hx of non-small cell lung cancer s/p chemo, radiation, and left upper lobe lobectomy, antiphospholipid antibody syndrome, hx of DVT/PE on Coumadin, and anxiety who presents to the hospital with Abd pain and Melena. The patient was at [facility]F post recent hospitalization for traumatic hematoma RLE and cellulitis. She started to report abd pain mainly in LLQ for 3-4 days now. had constipation and when she took laxative she started to pass black stool. No fever, chills, chest pain, palpitations, SOB, nausea, vomiting, diarrhea or urinary symptoms but reports decreased appetite. CT scan of Abd showing Acute diverticulitis of Sigmoid colon. Started on IV fluids and admitted for further treatment. Hospital course - Acute sigmoid diverticulitis As seen on CT scan as reported below. Treated with IV antibiotics of Ceftriaxone only given mild diverticulitis and multiple medications allergy with good response as diarrhea resolved and abdominal pain improved with no reported nausea or vomiting and good tolerance of diet that was advanced gradually. Final blood cultures remained negative. Switched to PO Ceftin upon discharge. To finish total of 7 days of antibiotics. - Right lower extremity wound, improving well, continue daily dressing changes. To follow with dr Ratliff as outpatient. - Acute hypokalemia resolved after PO and IV replacmeent. Increase home dose Potassium to 40 meq daily. follow BMP as outpatient - Acute Hypercalcemia. likely 2/2 dehydration. resolved with IVF. - Acute on chronic anemia. no clear blood loss, likely dilutional with IVF usage. improved to 8.8. - History of DVT/PE due to antiphospholipid syndrome. INR 1.8. monitor INR - goal 1.5 - 2. restart home dose of 1.5 mg daily. - Chronic hypoxic and hypercapnic respiratory failure due to COPD and pulmonary hypertension. Stable on 2 L - Chronic diastolic CHF. Continue Lasix as prescribed. consider lowering it to 80 mg daily only if remains euvolemic - Coronary artery disease. Continue Coumadin and statin - KANDY. BiPAP at night Discharge plan Increase KCL supplement to 40 meq daily Continue Ceftin for 4 more days Diazepam as needed for anxiety Increase physical activities as tolerated Continue wound care with silver alginate and wet-dry dressing daily Time Attestation Discharge Coordination Time (in mins): 37 Quality: Safe Use of Opioids Does Pt have an Active Cancer Diagnosis on the Problem List?: No Quality: Stroke Does the patient have a stroke diagnosis?: No Physical Exam Vital Signs: Vital Signs: Last Vital Signs Temp 97.2 F 02/04/24 07:21 Pulse 79 02/04/24 08:21 Resp 20 02/04/24 08:21 BP 131/66 02/04/24 08:44 Pulse Ox 99 02/04/24 07:21 O2 Del Method Nasal Cannula 02/04/24 07:21 O2 Flow Rate 2 02/04/24 07:21 Oxygen Flow Rate 2 02/01/24 12:17 BMI result Body Mass Index 22.8 Const: Other: Constitutional : Awake, interactive, not in distress Neck : Normal inspection, Supple Cardiovascular : RRR, no JVP, no lower extremity edema Respiratory : good bilateral air entry, no crackles, wheezes or rhonchi Gastrointestinal: soft, lax, Normal bowel sounds, LLQ mild tenderness, no guarding or surgical signs Skin : Warm, Dry, open RLE wound looks good, no signs of infection, no erythema, covered in dressing Neurological : Alert & oriented x3, No focal deficit DS: Data Data Completed and Pending Completed studies during hospitalization [Text1]: Procedures Assistance with Respiratory Ventilation, Less than 24 Consecutive Hours, Continuous Positive Airway Pressure (01/04/24) Excision of Right Lower Leg Skin, External Approach (01/04/24) Extirpation of Matter from Right Lower Leg Skin, External Approach (01/14/24) Labs on day of discharge: Laboratory Results - last 24 hr 02/03/24 02/04/24 12:29 06:06 Hold Purple Top SEE NOTE PT 21.9 H INR 1.8 H Sodium 136 134 L Potassium 4.3 D 3.6 Chloride 99 99 Carbon Dioxide 28 27 Anion Gap 13 12 BUN 9 8 L Creatinine 0.74 0.76 Estim Creat Clear Calc 50.2 48.8 Estimated GFR > 60 > 60 Random Glucose 115 90 Calcium 9.9 9.8 Preliminary micro results at discharge 02/01/24 15:49 Blood Culture - Preliminary Blood - Venous No growth after 48 hours. 02/01/24 16:04 Blood Culture - Preliminary Blood - Venous No growth after [address] scan - abdomen: Radiologist's impression: ITS Impressions Abdomen/Pelvis CT 02/01/24 13:59 IMPRESSION: * Acute diverticulitis of the sigmoid colon. * Mild bilateral hydroureteronephrosis is noted but uncertain whether this is merely due to increased hydrostatic pressure in the setting of a full urinary bladder or perhaps decreased ureteral peristalsis from inflammatory changes in the lower pelvis. * A trace pericardial effusion and small loculated left pleural effusion are unchanged compared to 08/23/2023. Discharge Plan Discharge Anticipated Discharge Date/Time: 02/04/24 11:36 Patient Disposition: [facility] Discharge Diagnosis: Acute diverticulitis [facility]errals: [facility] [Other] - 1 Week Caitlyn Bowie MD [Primary Care Provider] - 1 Week Discharge Medications: New simethicone [Gas Relief (simethicone)] 80 mg Tablet,Chewable 80 mg PO QIDWMHS Qty: 20 0RF cefuroxime axetil 500 mg tablet 500 mg PO BID Qty: 8 0RF diazepam 5 mg tablet 5 mg PO BID PRN (Reason: anxiety) Qty: 14 0RF Continued Advair HFA 230-21 mcg/actuation HFA aerosol inhaler 2 puff inhalation BID 90 Days Qty: 36 4RF chlorhexidine gluconate 0.12 % mouthwash 15 ml buccal BID 14 Days Qty: 420 1RF levothyroxine [Synthroid] 25 mcg tablet 25 mcg PO MOTUWETHFR@0600 furosemide 40 mg tablet 80 mg PO DAILY furosemide 40 mg Tablet 40 mg PO DAILY@1200 warfarin [Jantoven] 2.5 mg Tablet 1.5 mg PO DAILY@1800 Patient Comments: Dose ranges based on INR goal of 1.5-2. levothyroxine [Synthroid] 25 mcg Tablet 50 mcg PO SUSA@0600 rosuvastatin 10 mg tablet 10 mg PO MOWEFR ferrous sulfate 325 mg (65 mg iron) Tablet 325 mg PO DAILY docusate sodium 100 mg Capsule 100 mg PO DAILY acetaminophen 325 mg Tablet 650 mg PO Q6H PRN (Reason: Pain/Fever) biotin 1 mg Tablet 3 mg PO DAILY magnesium hydroxide [Milk of Magnesia] 400 mg/5 mL Suspension 30 ml PO NEEDED PRN (Reason: Constipation, No BM in 3 days ) bisacodyl 10 mg Suppository 10 mg PA DAILY PRN (Reason: No BM x3 days MoM not effective) Enema 19-7 gram/118 mL Enema 118 ml PA NEEDED PRN (Reason: No result from MoM and Bisacodyl Supp) ondansetron 4 mg Tablet,Disintegrating 4 mg PO Q4H PRN (Reason: Nausea/Vomiting) fluticasone propionate 50 mcg/actuation spray,suspension 2 spray intranasal DAILY guaifenesin 400 mg Tablet 400 mg PO TID (DME) nebulizers [facility] [place] See Rx Instructions .Route Rx Instructions: As directed (DME) CPAP Machine/Device Device See Rx Instructions .Route Rx Instructions: As directed (DME) Oxygen Home Use Kit See Rx Instructions .Route Rx Instructions: As directed epinephrine 0.3 mg/0.3 mL auto-injector 0.3 mg IM USEASDIRECTD PRN (Reason: Allergic Reaction) metoprolol succinate [Toprol XL] 50 mg tablet extended release 24 hr 50 mg PO BID Qty: 120 3RF prednisone 2.5 mg tablet 2.5 mg PO Q48H Rx Instructions: On odd days levocetirizine 5 mg tablet 5 mg PO DAILY 90 Days Qty: 90 3RF trazodone 50 mg tablet 100 mg PO BEDTIME Qty: 180 3RF montelukast 10 mg tablet 10 mg PO DAILY Qty: 90 3RF Changed potassium chloride 20 mEq packet 40 meq PO DAILY Qty: 60 0RF oxycodone 5 mg tablet 5 mg PO Q8H PRN (Reason: pain (scale score 7-10)) Qty: 10 0RF Rx Instructions: Partial Fill upon patient request. Discontinued potassium chloride 20 mEq/15 mL Liquid 20 meq PO DAILY Discharge Orders: Discharge Order (Routine); Ordered 02/04/24 Ordered By: Apryl Singh Diet: Advance to usual diet Activity on Discharge: As tolerated Stand Alone Forms: Patient Portal Discharge page Print Language: Luxembourgish Other Ambulatory Orders: Basic Metabolic Panel (Routine) Timeframe: 5 Days Facility: [facility] - Location: Laboratory Ordered By: Apryl Singh Care Plan Goals: You were treated for Diverticulitis and low potassium level. Treated with IV fluids, antibiotics and potassium replacement with good result. Increase KCL supplement to 40 meq daily Continue Ceftin for 4 more days Diazepam as needed for anxiety Increase physical activities as tolerated Continue wound care Health Concerns: Read below Plan of Treatment: Read below Assessment: Read below
[2024-02-04] MEDS: cefuroxime axetiL 500 MG TABLET PO (12:06)
== END 2024-02-04 13:53 | disposition skilled nursing facility (03) | DRG 378 ==
LOC: HO.ED 15:32 → HO.EDOVER 16:45 → HO.S3 02-02 05:30
PROVIDERS: Admitting Provider Student in an Organized Health Care Education/Training Program; Emergency Provider Emergency Medicine; PCP Internal Medicine; Visit Provider Student in an Organized Health Care Education/Training Program
DX: K57.33 Diverticulitis of large intestine without perforation or abscess with bleeding (principal); D68.61 Antiphospholipid syndrome; J96.12 Chronic respiratory failure with hypercapnia; J96.11 Chronic respiratory failure with hypoxia; E87.6 Hypokalemia; F41.9 Anxiety disorder, unspecified; D64.9 Anemia, unspecified; G47.33 Obstructive sleep apnea (adult) (pediatric); E03.9 Hypothyroidism, unspecified; E83.52 Hypercalcemia; I27.20 Pulmonary hypertension, unspecified; E86.0 Dehydration; I25.10 Atherosclerotic heart disease of native coronary artery without angina pectoris; Z86.711 Personal history of pulmonary embolism; Z85.118 Personal history of other malignant neoplasm of bronchus and lung; Z86.718 Personal history of other venous thrombosis and embolism; Z90.2 Acquired absence of lung [part of]; Z79.01 Long term (current) use of anticoagulants; Z79.51 Long term (current) use of inhaled steroids; Z79.890 Hormone replacement therapy; Z79.899 Other long term (current) drug therapy
CPT/HCPCS: 36415; 74176; 80048; 80076; 81001; 82272; 83605; 83690; 84484; 85025; 85027; 85610; 85730; 87040; 97161; 99285; J0696; J3480; J7120

== ENCOUNTER → 2024-02-01 16:30 | Outpatient (BNV) | payer MEDICARE, SELFPAY | PROVIDERS: Admitting Provider Student in an Organized Health Care Education/Training Program; Emergency Provider Emergency Medicine; PCP Internal Medicine; Visit Provider Student in an Organized Health Care Education/Training Program | DX: E87.6 Hypokalemia (principal); K57.92 Diverticulitis of intestine, part unspecified, without perforation or abscess without bleeding; K92.1 Melena; T14.8XXA Other injury of unspecified body region, initial encounter; S81.801D Unspecified open wound, right lower leg, subsequent encounter | CPT/HCPCS: 99223; 99232; 99239 ==

== ENCOUNTER 2024-02-15 09:46 | Outpatient (AMB) | payer MEDICARE, SELFPAY ==
--- NOTE | 2024-02-15 10:13 | A.OFFVIS_ITS ---
Vital Signs 02/15/24 10:14 Height 5 ft 3 in Weight 128 lb 15.527 oz BMI 22.8 BP 116/69 Blood Pressure Location Lt brachial Position Sitting Pulse 84 Pulse Source Doppler Pulse Oximetry (%) 100 Oxygen Delivery Method Nasal Cannula Oxygen Flow Rate 2 Intake Visit Reasons: Dyspnea Allergies morphine Allergy (Severe, Verified 02/01/24 12:19) Itching avocado [AVOCADO] Allergy (Mild, Verified 02/01/24 12:19) ITCHY THROAT, RASH azithromycin [AZITHROMYCIN] Allergy (Mild, Verified 02/01/24 12:19) ITCHY THROAT, RASH barium iodide [BARIUM IODIDE] Allergy (Mild, Verified 02/01/24 12:19) ITCHY THROAT, RASH barium sulfate Allergy (Mild, Verified 02/01/24 12:19) Itch bee pollen [BEE STINGS] Allergy (Mild, Verified 02/01/24 12:19) ITCHY THROAT, RASH ciprofloxacin [From CIPRO] Allergy (Mild, Verified 02/01/24 12:19) ITCHY THROAT, RASH clarithromycin [From BIAXIN] Allergy (Mild, Verified 02/01/24 12:19) ITCHY THROAT, RASH diatrizoate meglumine [From GASTROGRAFIN] Allergy (Mild, Verified 02/01/24 12:19) ITCHY THROAT, RASH diatrizoate sodium [From GASTROGRAFIN] Allergy (Mild, Verified 02/01/24 12:19) ITCHY THROAT, RASH diclofenac [From VOLTAREN] Allergy (Mild, Verified 02/01/24 12:19) ITCHY THROAT, RASH erythromycin base [ERYTHROMYCIN BASE] Allergy (Mild, Verified 02/01/24 12:19) ITCHY THROAT, RASH gentamicin [GENTAMICIN] Allergy (Mild, Verified 02/01/24 12:19) ITCHY THROAT, RASH Iodinated Contrast Media [IVP DYE] Allergy (Mild, Verified 02/01/24 12:19) ITCHY THROAT, RASH levofloxacin [From LEVAQUIN] Allergy (Mild, Verified 02/01/24 12:19) ITCHY THROAT, RASH metronidazole [From FLAGYL] Allergy (Mild, Verified 02/01/24 12:19) ITCHY THROAT, RASH moxifloxacin [From AVELOX] Allergy (Mild, Verified 02/01/24 12:19) ITCHY THROAT, RASH Penicillins [PENICILLINS] Allergy (Mild, Verified 02/01/24 12:19) ITCHY THROAT, RASH shrimp [SHRIMP] Allergy (Mild, Verified 02/01/24 12:19) ITCHY THROAT, RASH Sulfa (Sulfonamide Antibiotics) [SULFA (SULFONAMIDE ANTIBIOTICS)] Allergy (Mild, Verified 02/01/24 12:19) ITCHY THROAT, RASH vancomycin [VANCOMYCIN] Allergy (Mild, Verified 02/01/24 12:19) ITCHY THROAT, RASH clindamycin Adverse Reaction (Intermediate, Verified 02/01/24 12:19) Unknown HPI Comments Details: The patient is a 78 y/o woman with a complicated history which includes: COPD, KANDY, pulmonary HTN, history pulmonary emboli on chronic anticoagulation, lung CA Stage IIIA s/o neoadjuvant chemoradiation and Left upper lobe lobectomy. She did have a CT scan today that I personally reviewed. Has not been personally read by the radiologist. Based on my reading she has some pulmonary nodules some that are new 4 mm in the right major fissure area. Other nodules are stable. Other post operative and pulmonary fibrotic changes stable. The patient should get a CT scan in 6 months. Also to note, she did not tolerate the Incruse nor budesonide. Will consider Daliresp. She was admitted to [facility] with diverticulitis. She was placed on IV antibiotics but she left against medical advice because she did not like the antibiotic options. In the meantime she was having some issues with coughing up some blood. She is also concerned because on her visit to [facility] she did have a CT scan of the chest and she was told that she had significant scarring of her lungs in addition to lung volume loss. I have not looked at the CT scan back in reassured her that she has had this radiation fibrosis for long time and volume loss due to the scarring was present before. We did review her perfusion scan demonstrating no defects to suggest any blood clots. Interestingly in the quantitative study the patient did have 81% of the blood flow going to her right lung and 18% going to the left. This is likely due to her previous surgery and also radiation changes. 07/20/2023 the patient is here for a pulmonary follow-up visit. The patient overall has been doing fairly well. She just returned from a trip to [place]. She had 1 for time with her family. She continues use her oxygen with a portable oxygen concentrator while being there. She did have a cough when she was down there but since she came back the cough has improved some. She also describes symptoms of chest pain and also tachycardia which have been exertional. She does mention that the time that it happened she was coming back from the supermarket and she was carrying some groceries and she took off her oxygen. And when she tried carrying the groceries she started having some left- sided chest pressure and also some tachycardia. I also did take it for walk in the office. We did walker with a portable oxygen concentrator and she became dyspneic although the pulse ox was stable and heart rate was also stable. My suspicion is that in view of her congestive heart failure and pulmonary hypertension and moderate degree of COPD she is having some demand symptoms when she exerts herself without the oxygen. Therefore explained to her that she should not take off the oxygen while exerting herself and lifting groceries or objects. The patient is wondering about her pulmonary hypertension. Explained to her that vasodilators therapy will be potentially problematic specially with her reactions in the past. The main treatment at this point will be diuresis. She is tolerating that well she will undergo blood work to further address that. We did review her PFTs that she had back last year in appears that her COPD did worsen with an FEV1 of 74% predicted which is moderate severity. The patient also underwent blood work and her venous gas demonstrated an elevated CO2 and also she had an elevated bicarb. Will go ahead and have a repeat the blood work at this time. She is also having some abdominal discomfort. I suspect that she has recurrence of her diverticulitis. I will give her Vantin which she tolerates and if the symptoms worsen she needs to either go to her primary care doctor seek medical advice. 08/24/2023 the patient is here for a pulmonary follow-up visit. She was recently hospitalized at [facility] apparently with diverticulitis and also with pneumonia. The patient had a repeat CT scan of the abdomen just yesterday. We will request the results from [place]. In the meantime the patient continues have shortness of breath with minimal activity. She does use her oxygen with good effect. She has been evaluated further for her pulmonary hypertension. She did speak to her specialists from [place] who wants her to undergo a cardiac catheterization. She is reluctant to go to [place]. And her spiritual minister here is reluctant to do it here. She in the meantime will have an echocardiogram I believe in [facility]. Based on those results additional evaluation may be warranted. The patient does have dyspnea on exertion. [place] heart Association class 3. I do believe that this is related to her underlying pulmonary hypertension along with her significant COPD and restrictive lung disease. The patient does complaint of a cough the cough tends to be croupy in nature. She likely has a component of tracheomalacia. S he does have daytime drowsiness. Her [place] score is elevated 10/24. She has a hard time remembering things. I did download her BiPAP. Currently setting 13 overnight. Her AHI is actually elevated at 13. This was not the case before on the same settings that she has had multiple sleep studies. Initially I was going to put her on VPAP auto but I just went ahead and increase her pressures to 15/10 in view of her very sensitive response to change. She will let me know how these pressures are doing we can always download her machine online to make sure that her AHI is decreasing. The patient's last blood gas demonstrated component of chronic hypercarbic respiratory failure along with a metabolic alkalosis. Likely from diuresis and her renal adjustments to her hypercarbia. The patient is scheduled to undergo an overnight oximetry on her BiPAP and on 2 L of oxygen which she has been using. We will reassess and check her venous blood gas during the next visit. 09/14/2023 the patient is here for visit. The patient still has multiple complaints. She is nervous. She feels like her breathing is getting worse and she is using oxygen more often. She also complains of pleuritic discomfort on the left side of her chest. She was seen by Cardiology and they do not see any active coronary artery disease based on her to coronary artery angiograms. The patient does have indeed some pulmonary hypertension and some mitral stenosis secondary to her mitral clip. She is responding well to the diuretics. No role for vasodilators therapy. The patient did have an overnight oximetry which we reviewed. The patient does need to increase her oxygen with BiPAP. She increases from 2 L to 3 L at this time. She needs to have further education about her use the concentrator so request a [employer] since somebody to educate her on how to switch her concentrator at this time. Meantime the patient is complaining of neck pain and also numbness of her upper extremities. She is also having difficulty sleeping. Will go ahead and started on a small dose of gabapentin hopefully to help her with her neuropathic discomfort and also hopefully help her with her sleep. She is very sensitive to medications so she will start with 100 mg capsules which is very small dose and then increase it to 200 after a week if not any better. Seems that she was on Neurontin in the past and she did tolerated which is reassuring. 10/12/2023 the patient is here for a pulmonary follow-up visit. She has been complaining of right-sided chest discomfort now. Apparently she was in her car reason for something and she felt the uncomfortable pop on her right side of her chest. And now is tender to the touch hurts when she takes a deep breath in makes it difficult to breathe. She did go to an urgent care where she had an x- ray done. I do see a small hairline fracture on that right side. Therefore the patient will be uncomfortable for some time. The patient is concerned about the potential of lung collapse. Explained to her that this area does not appear to be displaced therefore some likely to be the case. However, in view of her significant symptoms in the fact that the radiology report once it was normal in the patient does have a history of cancer we should go ahead and request a CT scan to better address her pleuritic right-sided discomfort. The patient will be provided also with some pain medication although she is extremely sensitive to new medications. Therefore she can try the atenolol 3. To see this provides her with some relief because of the pain she understands that she needs to be read. I did give her a incentive spirometer so she can work on that. Her respiratory medications are the same. She is also using her BiPAP at night with the oxygen with good effect. She does complaint of additional dyspnea. [id number] severity. She is now relying on the oxygen more. She has noted that for the last 3 days she gained about 4 lb. She feels a little bit more bloated. She understands that she needs to take additional diuresis. 11/09/2023 the patient is here for a pulmonary follow-up visit. During the last visit the patient was having chest discomfort dizziness. We did check a D-dimer that was significantly elevated. The patient did go to [facility] which she did have a CTA. The patient did not have any evidence of any blood clots. I did personally review the CTA demonstrating stable postoperative changes and fibrotic changes. No significant new nodules noted. Again no thromboembolic disease. The patient was discharged. She has been doing okay she has been using her oxygen. She continued on the diuretics. She has episodes of palpitations with heart rate she states goes up to 150 beats per minute. During those episodes she does drop her saturations down to the 80s. Usually the symptoms subside after several minutes. The patient in the meantime has been complaining of lower extremity pain especially behind her knee on her left lower extremity. We did again recheck his D-dimer continues to be elevated so therefore will do lower extremity Dopplers. The patient is on Coumadin and her last INR was documented to be 1.5 which is her therapeutic window specially since she has platelet dysfunction. She continues respiratory therapy. She did have an episode of palpitations when using the nebulizer so I did recommend she can only use half a treatment if she really needs it. Otherwise she should try to refrain from its specially if she has had more cardiac instability and irritability. We also checked her electrolytes because of that as well. Her potassium was 3.1. She had not taken today's dose of potassium so therefore I did emphasize importance of taking her potassium oral supplementation to min imize cardiac arrhythmias. 12/15/2023 the patient is here for pulmonary follow-up visit. Still having difficulties with her lower extremity edema. I did reassure her that her weight has been stable in that is more important. She has already a dose of diuretics. The patient has been having some bruising primarily because of the compression stockings. This is typical specially with her anticoagulation and platelet dysfunction. The patient also has a cough chest congestion. She has chronic lung disease and COPD with chronic bronchitis explained to her that she will always make mucus. She responds well to the oxygen she is using more regularly with good response. The patient has been using her BiPAP. BiPAP therapy has been affecting beneficial although her AHI now is elevated up to 15. She is having some central apneas. I did check a blood gas in her pCO2 is 59 mm Hg. At this point she is feeling BiPAP. The patient has hypercarbic respiratory failure due to her COPD. This carries a poor prognosis and high risk for hospitalizations. Therefore we are going to switch over to a noninvasive ventilator, astral. This provide her with better gas exchange improved prognosis and decrease hospitalizations. I did talk to the [employer] that supplies with the BiPAP to switch over to the astral at this time. 12/26/2023 the patient is here for sick visit. Since her last visit she did have a blood gas demonstrating an elevated CO2 of 59 mm Hg. The patient has hypercarbic respiratory failure due to her COPD. In addition to that she does have significant sleep apnea. She has been on BiPAP and she has had multiple sleep studies demonstrating the BiPAP settings are appropriate for her. Although, the last downloaded demonstrated that her AHI significantly increased up to about 15 events per hour. Some component of central apneas noted suggesting a complex sleep apnea picture. Therefore, based on the fact that she has hypercarbic respiratory failure we did set up with an astral. She has tried over the weekend she states that she developed significant chest pain shortness of breath she can not tolerate it. She does want keep using it. She went back to him BiPAP. In view of her worsening AHI will go ahead and refer her to a sleep specialist in addition to that will request an in-lab titration study to see if we can adequately titrate her on a BiPAP or IVAP. In the meantime she does continue with her ongoing shortness of breath cough mucus plugging. She does have some wheezing on examination. She needs to make sure to use her inhalers and she can also use her nebulizer as needed. She is already on prednisone 2.5 mg twice a day were not going to increase this at this time. She does have poor sleep quality. She is also having issues with a time s being tearful and somewhat depressed. Also affecting her sleep-wake cycle. She is currently on trazodone with partial improvement. She is trying to get off the benzodiazepines because she has concerned the CO2 retention. I believe this is reasonable. 01/26/2024 the patient is here for a pulmonary follow-up visit. She was recently hospital for a injury to her lower extremity. Apparently she was her by a shopping cart were hit her leg and caused her to have a significant hematoma. It did requiring debridement at the bedside. She went to a rehab and then she came back and now she has had a different rehab. Now getting wound care. In the meantime she still having difficulties with breathing. She has been using her oxygen at 2 L. when she does not use her oxygen she tends to go to tachyarrhythmias so therefore did recommend she continue using her oxygen all times. The patient also has been using the BiPAP. She did not tolerate the AVAP. I did download the BiPAP and her AHI continues to be elevated still. Therefore increased her EPAP from 8-10. Now she has a settings of BiPAP of 16/10. She will call next week to let me know how she is doing a can download the machine is if we can increase it further. Will slowly increase it to get to the effective therapeutic pressures. She has other complaints including dry mouth nausea likely from her new medications specially pain medications and she did complete antibiotics for her extremity wound. She continues on Coumadin. While in the hospital she did have a V/Q scan which was indeterminate but no evidence of any PE that could be appreciated. She continues with respiratory therapy with good effect. Will follow-up the patient hopefully in 3-4 weeks and hopefully she is home by then. 02/15/2024 the patient is here for pulmonary follow-up visit. She is still the rehabilitation. She is recovering from the right lower extremity wound. She is having more pain and swelling. She needs to be evaluated for the wound. We did call vascular surgery and they recommended that she follow-up with wound care. Looks like wound care already saw her in the hospital. Will try to facilitate her care so therefore put a referral in to make sure that she gets seen as well as possible in view of the significant mood that she has. From a respiratory status the patient is doing okay. She is using her oxygen with good effect. The patient also has been using the BiPAP at nighttime. The BiPAP therapy continues to be affecting beneficial. She does complaint of chest pain and pressure. Is substernal in nature. Seems to be ongoing. No pleuritic component. Will have her get a chest x-ray to make sure. But since she is still at rehab she can have 1 done while she is there. In the meantime we did do an EKG demonstrating the conduction abnormalities. Appear to be stable. She does have increasing anxiety. I did recommend she can take Anxiolytic medicine during the day and also as needed. [facility] Medical History Open wound Warfarin anticoagulation Complex sleep apnea syndrome Chronic hypercapnic respiratory failure Leg pain Anemia Tachycardia DVT (deep venous thrombosis) COPD (chronic obstructive pulmonary disease) Compression fracture of body of thoracic vertebra ASD (atrial septal defect) Pleuritic chest pain History of COVID-19 Chronic anticoagulation Hypothyroidism GERD (gastroesophageal reflux disease) Hyperlipidemia Hypertension Factor 5 Leiden mutation, heterozygous History of non-ST elevation myocardial infarction (NSTEMI) Hypoxia Anxiety PTSD (post-traumatic stress disorder) Hemoptysis Dyspnea Tracheobronchitis CLARA positive Diverticulitis Allergic bronchitis (HFpEF) heart failure with preserved ejection fraction Subarachnoid bleed Insomnia Anti-phospholipid antibody syndrome Hypogammaglobulinemia Chronic respiratory failure Arterial insufficiency of lower extremity Complex regional pain syndrome i of right lower limb Post herpetic neuralgia Pulmonary hypertension Pericardial effusion Pulmonary emboli Pleural effusion Radiation fibrosis of lung Pneumonitis Pulmonary nodules KANDY treated with BiPAP Lung cancer Surgical History History of colonoscopy History of lung surgery History of tonsillectomy History of hysterectomy S/P mitral valve clip implantation History of cardiac cath Family History Sister No problems noted. Mother Cardiovascular disease Daughter Tachycardia Other KANDY (obstructive sleep apnea) Social History Household Members: Other Housing: Senior Living Do you presently have visiting nurse or other home services: Yes (at home had [employer] that came to visit her) Unable to assess alcohol history related to: Unknown Alcohol intake: former Comment: stand by assist with ambulation Patient Tobacco Use Status: Never used Tobacco Second Hand Smoke Exposure: No Advance Directives Date on File: 06/15/22 service: No Current occupational status: retired Review of Systems Const Denies chills, Reports daytime sleepiness, Reports fatigue, Denies fever(s), Denies frequent falls, Denies weakness, Denies weight gain and Denies weight loss Eyes Reports change in vision ENT Denies change in voice and Denies dizziness Card Reports chest pain, Denies leg edema, Denies lightheadedness, Denies palpitations, Denies dyspnea, Reports dyspnea on exertion, Denies orthopnea and Denies other (loss of consciousness) Resp Reports cough, Denies pain on inspiration, Denies pain with cough, Denies dyspnea and Reports dyspnea on exertion GI Denies hematochezia and Denies change in stool character Musc Reports as per HPI, Reports abnormal gait and Reports muscle weakness Skin/Breast Reports change in pigmentation, Reports skin swelling and Reports unusual bruising Neuro Reports abnormal gait, Denies dizziness, Denies frequent falls and Denies weakness Psych Reports depression Endo Reports fatigue and Denies palpitations Physical Exam Vital Signs: Last Vital Signs Pulse 84 02/15/24 10:14 BP 116/69 02/15/24 10:14 Pulse Ox 100 02/15/24 10:14 Oxygen Delivery Method Nasal Cannula 02/15/24 10:14 Oxygen Flow Rate 2 02/15/24 10:14 BMI result Body Mass Index 22.8 Last Vital Signs Temp 97.7 F 06/20/22 08:00 Pulse 90 06/20/22 08:00 Resp 16 06/20/22 08:00 BP 137/60 06/20/22 08:00 Pulse Ox 93 06/20/22 08:00 O2 Del Method 06/20/22 08:00 O2 Flow Rate 2 06/20/22 08:00 FiO2 45 06/14/22 11:07 BMI result Body Mass Index 23.0 Const General: cooperative, comfortable, alert and awake Orientation/consciousness: patient oriented x3 HEENT Head: Yes atraumatic Eyes General: appearance normal, both eyes and all related structures Neck Neck: Yes trachea midline, Yes supple and Yes no JVD Chest Chest palpation & inspection: tenderness rib (right side) Resp Effort & Inspection: normal respiratory effort, no cough and No prolonged expiratory phase Auscultation: no rales, no rhonchi, wheezes and diminished lung sounds Cardio Rate: regular rate Rhythm: regular rhythm Heart sounds: S1 normal heart sound present, S2 normal heart sound present and Abnormal heart opening sounds loud S2 GI Auscultation: normal bowel sounds Skin General skin exam: purpura and scars Neuro General: patient oriented x3 and no focal motor deficits Extrem Right lower extremity: edema Office Procedures EKG Details: EKG done in the office, results to Dr. Kelly. results scanned to her chart. [id number], Complete Assessment & Plan Assessment & Plan (1) Leg wound, right: Code(s): S81.801A - Unspecified open wound, right lower leg, initial encounter Category: Medical Qualifiers: Encounter type: subsequent encounter Qualified Code(s): S81.801D - Unspecified open wound, right lower leg, subsequent encounter (2) Chronic hypercapnic respiratory failure: Code(s): J96.12 - Chronic respiratory failure with hypercapnia Category: Medical (3) Complex sleep apnea syndrome: Code(s): G47.31 - Primary central sleep apnea Category: Medical (4) Pulmonary hypertension: Comment: severe based on RHC, moderate based on recent echo Code(s): I27.20 - Pulmonary hypertension, unspecified Category: Medical (5) Pulmonary nodules: Code(s): R91.8 - Other nonspecific abnormal finding of lung field Category: Medical (6) Chronic respiratory failure: Code(s): J96.10 - Chronic respiratory failure, unspecified whether with hypoxia or hypercapnia Category: Medical Qualifiers: Respiratory failure complication: hypoxia and hypercapnia Qualified Code(s): J96.11 - Chronic respiratory failure with hypoxia; J96.12 - Chronic respiratory failure with hypercapnia (7) KANDY treated with BiPAP: Code(s): G47.33 - Obstructive sleep apnea (adult) (pediatric) Category: Medical (8) Radiation fibrosis of lung: Code(s): J70.1 - Chronic and other pulmonary manifestations due to radiation Category: Medical (9) COPD (chronic obstructive pulmonary disease): Code(s): J44.9 - Chronic obstructive pulmonary disease, unspecified Category: Medical Qualifiers: COPD type: chronic bronchitis Chronic bronchitis type: simple Qualified Code(s): J41.0 - Simple chronic bronchitis (10) Diastolic CHF: Code(s): I50.30 - Unspecified diastolic (congestive) heart failure Category: Medical Qualifiers: Heart failure chronicity: chronic Qualified Code(s): I50.32 - Chronic diastolic (congestive) heart failure (11) (HFpEF) heart failure with preserved ejection fraction: Code(s): I50.30 - Unspecified diastolic (congestive) heart failure Category: Medical Qualifiers: Heart failure chronicity: chronic Qualified Code(s): I50.32 - Chronic diastolic (congestive) heart failure Plan prednisone 2.5 mg QOD Ambien for sleep continue Advair ASHA as needed continue ASHA (xopenex) as needed CPT with acapella valve fluticasone Oxygen 2L/pulse with activity and sleep. POC Inogen G5 duiresis as tolerated BIPAP 25/03 to 22/02 to 16/10 wound care f/u CXR while at [facility] EKG with conduction abnormalities F/U 6-8 weeks Orders: Orders AMB EKG-In Office Today R07.9 - Chest pain, unspecified Referrals Wound Care Referral S81.801D - Unspecified open wound, right lower leg, subsequent encounter, T14.8XXA - Other injury of unspecified body region, initial encounter Coding Level of Care Code Est Pt Level 5 (78683) Complex EM visit Add On G2211 Diagnoses Leg wound, right S81.801D Encounter type: subsequent encounter Chronic hypercapnic respiratory failure J96.12 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 Pulmonary hypertension I27.20 Pulmonary nodules R91.8 Chronic respiratory failure with hypoxia and hypercapnia J96.11; J96.12 Respiratory failure complication: hypoxia and hypercapnia KANDY treated with BiPAP G47.33 Radiation fibrosis of lung 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 Chronic heart failure with preserved ejection fraction I50.32 Heart failure chronicity: chronic CPT Codes EKG - CPT: 02063-[id number], Complete ([id number]) Time Spent (min) 40
[2024-02-15 10:14] VITALS: BP 116/69; PULSE 84; O2SAT 100; BMI 22.8
== END 2024-02-15 10:59 | disposition home or self-care (01) ==
PROVIDERS: PCP Internal Medicine; Visit Provider Hospitalist
DX: J96.12 Chronic respiratory failure with hypercapnia (principal); G47.31 Primary central sleep apnea; I27.20 Pulmonary hypertension, unspecified; S81.801D Unspecified open wound, right lower leg, subsequent encounter; R91.8 Other nonspecific abnormal finding of lung field; J96.11 Chronic respiratory failure with hypoxia; G47.33 Obstructive sleep apnea (adult) (pediatric); J70.1 Chronic and other pulmonary manifestations due to radiation; J41.0 Simple chronic bronchitis; I50.32 Chronic diastolic (congestive) heart failure
CPT/HCPCS: 93010; 99215; G2211

== ENCOUNTER → 2024-02-15 09:46 | Outpatient (BNVA) | payer MEDICARE, SELFPAY | PROVIDERS: PCP Internal Medicine; Visit Provider Hospitalist | DX: J96.12 Chronic respiratory failure with hypercapnia (principal); J96.11 Chronic respiratory failure with hypoxia; R91.8 Other nonspecific abnormal finding of lung field; G47.31 Primary central sleep apnea; I27.20 Pulmonary hypertension, unspecified; S81.801D Unspecified open wound, right lower leg, subsequent encounter | CPT/HCPCS: 93005; 99212 ==

== ENCOUNTER 2024-03-04 14:53 | Outpatient (REF) | payer MEDICARE, SELFPAY ==
[2024-03-04 16:11] LABS: Potassium 3.7 mmol/L (3.3-5.1)
[2024-03-04 16:22] LABS: B Type Natriuretic Peptide 738 pg/mL (<100)
== END 2024-03-04 14:54 | disposition home or self-care (01) ==
LOC: HO.LAB 14:53
PROVIDERS: PCP Internal Medicine; Visit Provider Internal Medicine Cardiovascular Disease
DX: I50.32 Chronic diastolic (congestive) heart failure (principal); I25.10 Atherosclerotic heart disease of native coronary artery without angina pectoris
CPT/HCPCS: 36415; 83880; 84132

== ENCOUNTER 2024-03-06 14:55 | Outpatient (AMB) | payer MEDICARE, SELFPAY ==
[2024-03-06 15:18] VITALS: BP 110/62; PULSE 79; BMI 23.3
--- NOTE | 2024-03-06 15:18 | MHC.OFFVIS ---
Vital Signs 03/06/24 15:18 Height 5 ft 3 in Weight 131 lb 6.328 oz BMI 23.3 BP 110/62 Blood Pressure Location Lt brachial Position Sitting Pulse 79 Pulse Source Pulse Oximeter Intake Visit Reasons: f/up Intake Note: f/up Preform Plate Maker Required: No Accompanied by: Self / Same As Patient Allergies morphine Allergy (Severe, Verified 02/01/24 12:19) Itching avocado [AVOCADO] Allergy (Mild, Verified 02/01/24 12:19) ITCHY THROAT, RASH azithromycin [AZITHROMYCIN] Allergy (Mild, Verified 02/01/24 12:19) ITCHY THROAT, RASH barium iodide [BARIUM IODIDE] Allergy (Mild, Verified 02/01/24 12:19) ITCHY THROAT, RASH barium sulfate Allergy (Mild, Verified 02/01/24 12:19) Itch bee pollen [BEE STINGS] Allergy (Mild, Verified 02/01/24 12:19) ITCHY THROAT, RASH ciprofloxacin [From CIPRO] Allergy (Mild, Verified 02/01/24 12:19) ITCHY THROAT, RASH clarithromycin [From BIAXIN] Allergy (Mild, Verified 02/01/24 12:19) ITCHY THROAT, RASH diatrizoate meglumine [From GASTROGRAFIN] Allergy (Mild, Verified 02/01/24 12:19) ITCHY THROAT, RASH diatrizoate sodium [From GASTROGRAFIN] Allergy (Mild, Verified 02/01/24 12:19) ITCHY THROAT, RASH diclofenac [From VOLTAREN] Allergy (Mild, Verified 02/01/24 12:19) ITCHY THROAT, RASH erythromycin base [ERYTHROMYCIN BASE] Allergy (Mild, Verified 02/01/24 12:19) ITCHY THROAT, RASH gentamicin [GENTAMICIN] Allergy (Mild, Verified 02/01/24 12:19) ITCHY THROAT, RASH Iodinated Contrast Media [IVP DYE] Allergy (Mild, Verified 02/01/24 12:19) ITCHY THROAT, RASH levofloxacin [From LEVAQUIN] Allergy (Mild, Verified 02/01/24 12:19) ITCHY THROAT, RASH metronidazole [From FLAGYL] Allergy (Mild, Verified 02/01/24 12:19) ITCHY THROAT, RASH moxifloxacin [From AVELOX] Allergy (Mild, Verified 02/01/24 12:19) ITCHY THROAT, RASH Penicillins [PENICILLINS] Allergy (Mild, Verified 02/01/24 12:19) ITCHY THROAT, RASH shrimp [SHRIMP] Allergy (Mild, Verified 02/01/24 12:19) ITCHY THROAT, RASH Sulfa (Sulfonamide Antibiotics) [SULFA (SULFONAMIDE ANTIBIOTICS)] Allergy (Mild, Verified 02/01/24 12:19) ITCHY THROAT, RASH vancomycin [VANCOMYCIN] Allergy (Mild, Verified 02/01/24 12:19) ITCHY THROAT, RASH clindamycin Adverse Reaction (Intermediate, Verified 02/01/24 12:19) Unknown Medication List - Last Reconciled 03/06/24 by Luis Eduardo Cadet MD acetaminophen 650 mg PO Q6H PRN Advair HFA 230-21 mcg/actuation (fluticasone propion-salmeterol) 2 puffs inhalation BID 90 days NS biotin 3 mg PO DAILY bisacodyl 10 mg [place] DAILY PRN cefuroxime axetil 500 mg PO BID chlorhexidine gluconate 0.12% 15 mL buccal BID 14 days CPAP (CPAP Machine/Device) As directed diazepam 5 mg PO BID PRN docusate sodium 100 mg PO DAILY epinephrine 0.3 mg IM USEASDIRECTD PRN ferrous sulfate 325 mg PO DAILY fluticasone propionate 50 mcg/actuation 2 sprays intranasal DAILY furosemide 80 mg PO BID guaifenesin 400 mg PO TID levocetirizine 5 mg PO DAILY 90 days levothyroxine (Synthroid) 25 mcg PO MOTUWETHFR@0600 levothyroxine (Synthroid) 50 mcg PO SUSA@0600 magnesium hydroxide (Milk of Magnesia) 30 mL PO NEEDED PRN metoprolol succinate ER (Toprol XL) 50 mg PO BID montelukast 10 mg PO DAILY nebulizers As directed ondansetron 4 mg PO Q4H PRN oxycodone 5 mg PO Q8H PRN Oxygen Home Use As directed potassium chloride 40 mEq PO DAILY prednisone 2.5 mg PO Q48H rosuvastatin 10 mg PO MOWEFR simethicone (Gas Relief (simethicone)) 80 mg PO QIDWMHS sodium phosphates 19-7 gram/118 mL (Enema) 118 mL [place] NEEDED PRN trazodone 100 mg (2 x 50 mg) PO BEDTIME warfarin (Jantoven) 1.5 mg PO DAILY@1800 HPI Comments Details: 78-year-old female complex medical issues presenting follow-up. She recently was diagnosed with severe mitral valve regurgitation was felt not to be a good surgical candidate and underwent MitraClip. She had improvement in symptoms afterwards. She has advanced lung disease due to previous lung resection as well as radiation to the lungs. She also had pulmonary embolism in the past. She has pulmonary hypertension. She is presenting now because she was becoming more short of breath and had lower extremity edema. On her own she crease her furosemide to 40 mg over the last week or so. She said her breathing did not change with that strategy. It appears early November she was in the emergency department with shortness of breath and was diagnosed with left lower lobe pneumonia. She had some sharp left-sided chest pains which were pleuritic in nature likely due to underlying pneumonia. She was given antibiotics which she has completed. She is saying that her oxygen saturations the low when she is laying down. She does not use oxygen frequently. Specifically outside her home she does not use oxygen. She has tachycardia when she is ambulating which she has noticed but does not significantly get any palpitations. She continues to get short of breath with activities. She saw a pulmonary hypertension specialist and by her description she was told that her pulmonary hypertension was mostly due to mitral regurgitation. She is following with pulmonology at [place]. 12/29/22: Was brought in for urgent follow-up. She called and was complaining of palpitations and fast heart rates as high as 120 beats per minute and was also complaining of shortness of breath. It appears she was referred for echocardiography by pulmonology and this showed that her right ventricle is [id number] dilated, right atrium was severely dilated with small pericardial effusion as before but small to moderate pleural effusion was also noted. Previous iatrogenic ASD from transseptal puncture was noted as well mitral stenosis due to mitral clip with mean gradient of 8-9 mm Hg. Previously this was 7 mm Hg. The patient was previously advised to use oxygen when she is ambulating. Apparently she was out with her friends and while walking she was not using oxygen and started feeling shortness of breath and checked her pulse and it was 120 beats per minute. She is saying when she is using oxygen she does not get similar symptoms and has not had any tachycardia while using oxygen. She has also gained few lb over the last few days. She was sent for chest x-ray which is showing left basal pleural effusion as seen on the echocardiography also. She is taking Lasix 40 mg once a day. She is on metoprolol succinate 25 mg twice a day. 01/11/23: She returns for follow-up. She had Holter monitor on her and the day she came to return it she had significant palpitations and shortness of breath while walking to the Cardiology Department. She said she was not rushing and was walking at a slow pace. She said these symptoms improved afterwards and she did not have any for the palpitations walking back to her car. She was using oxygen. She is wearing oxygen 30/01 but is saying that she feels lousy and has not felt any difference in her dyspnea or palpitations. She has been using 40 mg twice a day of Lasix. Her blood pressure control is good. Previously we did not increase her Toprol XL despite seeing some degree of mitral stenosis on her echocardiogram which is iatrogenic due to MitraClip. She has been more sedentary and is quite frail and deconditioned. She is tearful that she is unable to do any of the activities she was able to do before. 02/13/23: She returns for follow-up. She was previously on 40 mg p.o. b.i.d. Lasix. She had called our office for lower extremity edema and Lasix dose was increased to 80 mg twice a day. Subsequent to that she called or office that she is dehydrated and was advised to take 80 mg in the morning and 40 in the afternoon. She had blood workup which showed hypokalemia and she was started on potassium supplements. She continues to get fatigue and SOB. She is using oxygen when sleeping and with ambulation. Continues to get tachycardia with ambulation. 04/26/2023: She returns for follow-up. She called us yesterday because she gained 3 lb over 3 days. She was taking 40 mg p.o. b.i.d. Lasix. She was advised to take an extra dose of Lasix yesterday and increase the Lasix to 80 mg in the morning today. She said she checked her weight today and was back at 128 lb which was her baseline. She is saying she has been short of breath and fatigue. Also she had upper back pain which moved to her chest early April and she went to [facility] where she had a chest CTA performed which did not show any evidence of dissection or pulmonary embolism. Pulmonary arteries were noticed to be dilated consistent with her known history of pulmonary hypertension. 08/14/2023: She returns for follow-up. She had an episode of diverticulitis which was treated in the hospital. She said she went home and was getting some shortness of breath and wheezing and was advised to go back to the hospital and was treated for pneumonia also. She continues to have symptoms like before including chest tightness, fatigue and inability to exercise. She is on oxygen mostly at times. She complains of some edema in the lower extremity but nothing significant is noted on examination. 09/04/2023: She returns for urgent follow-up. She is complaining of shortness of breath and palpitations. She said she was tachycardic and checked her heart rate and was 100 beats per minute. She has been using oxygen most of the time. Sometimes she takes it off and if the oxygen level is dropping she wears oxygen back. During activities she has been using oxygen. Continues to get off and on chest discomfort. She had an echocardiogram done at [facility] with transmitral gradient was 7 mm Hg at a heart rate of 76 beats per minute. 10/17/23: She is here for follow-up after recent ER visit. Apparently was getting lower extremity edema and went to the emergency department where she was told that she may have congestive heart failure. No significant changes in medications were made. Her BNP was at the same level that it has been previously. She called our office and was concerned and we decided to bring her for office visit. She is saying that she was short of breath and had lower extremity edema and went to the emergency department and apparently after testing no changes in medications were made. She clearly has some peripheral edema. She also is complaining of some shortness of breath with activities. 11/20/23: She is here for follow-up. She had repeat echocardiography performed which is showing normal LV function 60-65 % without any wall motion abnormalities with elevated filling pressures, normal right ventricular systolic function with mild RV dilation, mitral clip with 8 mm pressure gradient across the mitral valve at heart rate of 88 beats per minute. [id number] pulmonary hypertension. She is complaining of fatigue and gets tired very easily. She has not been exercising and has slowed down significantly. With Lasix her volume status appears to be better but she is still complaining of off and on lower extremity edema. She is concerned about her kidneys. I have reassured her that she looks euvolemic. Also discussed with her the ECHO findings which are quite reassuring currently. 03/06/2024: She is here for follow-up. She had multiple issues since she last saw us in November. She had pneumonia followed by diverticulitis as well as a hematoma on the right lagos which was drained by surgeon. She was getting more short of breath and apparently had a chest x-ray performed which showed pleural effusions. Her Lasix dose was increased to 80 mg twice a day. She started the higher dose today. She was previously taking 80 mg and 40 mg in the morning and afternoon. Denying any other complaints. [facility], LAT[facility] Medical History Open wound Warfarin anticoagulation Complex sleep apnea syndrome Chronic hypercapnic respiratory failure Leg pain Anemia Tachycardia DVT (deep venous thrombosis) COPD (chronic obstructive pulmonary disease) Compression fracture of body of thoracic vertebra ASD (atrial septal defect) Pleuritic chest pain History of COVID-19 Chronic anticoagulation Hypothyroidism GERD (gastroesophageal reflux disease) Hyperlipidemia Hypertension Factor 5 Leiden mutation, heterozygous History of non-ST elevation myocardial infarction (NSTEMI) Hypoxia Anxiety PTSD (post-traumatic stress disorder) Hemoptysis Dyspnea Tracheobronchitis CLARA positive Diverticulitis Allergic bronchitis (HFpEF) heart failure with preserved ejection fraction Subarachnoid bleed Insomnia Anti-phospholipid antibody syndrome Hypogammaglobulinemia Chronic respiratory failure Arterial insufficiency of lower extremity Complex regional pain syndrome i of right lower limb Post herpetic neuralgia Pulmonary hypertension Pericardial effusion Pulmonary emboli Pleural effusion Radiation fibrosis of lung Pneumonitis Pulmonary nodules KANDY treated with BiPAP Lung cancer Surgical History History of colonoscopy History of lung surgery History of tonsillectomy History of hysterectomy S/P mitral valve clip implantation History of cardiac cath Family History Sister No problems noted. Mother Cardiovascular disease Daughter Tachycardia Other KANDY (obstructive sleep apnea) Social History Household Members: Other Housing: Intermediate Do you presently have visiting nurse or other home services: Yes (at home had [employer] that came to visit her) Unable to assess alcohol history related to: Unknown Alcohol intake: former Comment: stand by assist with ambulation Patient Tobacco Use Status: Never used Tobacco Second Hand Smoke Exposure: No Advance Directives Date on File: 06/15/22 service: No Current occupational status: retired Review of Systems Const Denies chills, Denies fatigue, Denies fever(s), Denies frequent falls, Denies weakness, Denies weight gain and Denies weight loss ENT Denies dizziness Card Denies chest pain, Denies leg edema, Denies lightheadedness, Denies palpitations, Denies dyspnea and Denies dyspnea on exertion Resp Denies cough, Denies dyspnea and Denies dyspnea on exertion GI Denies hematochezia Musc Denies abnormal gait, Denies muscle weakness, Denies numbness, Denies radiating pain into limb and Denies tingling Neuro Denies abnormal gait, Denies dizziness, Denies frequent falls, Denies numbness, Denies tingling and Denies weakness Endo Denies fatigue and Denies palpitations Physical Exam Vital Signs: Last Vital Signs Pulse 79 03/06/24 15:18 BP 110/62 03/06/24 15:18 BMI result Body Mass Index 23.3 GENERAL APPEARANCE: In no distress. NECK/THYROID: no carotid bruit, mild JVD. SKIN: no suspicious lesions, warm and dry. HEART: no murmurs, regular rate and rhythm, S1, S2 normal. LUNGS: clear to auscultation bilaterally. Diminished breath sounds left base. ABDOMEN: normal, bowel sounds present, soft, nontender, nondistended. EXTREMITIES: no clubbing, cyanosis. No edema. PERIPHERAL PULSES: equal. NEUROLOGIC: nonfocal, alert and oriented. Assessment & Plan Assessment & Plan (1) (HFpEF) heart failure with preserved ejection fraction: Code(s): I50.30 - Unspecified diastolic (congestive) heart failure Category: Medical Qualifiers: Heart failure chronicity: chronic Qualified Code(s): I50.32 - Chronic diastolic (congestive) heart failure Plan 78-year-old female who is here for follow-up. She has multiple comorbidities and complex issues. She recently had PNA and diverticulitis. Recent BNP quite elevated and CXR showing effusion. Clinically overloaded. I have advised her to continue Lasix 80 mg BID. She will see us back in 2 weeks. Will repeat labs before next visit. Thank you for allowing me to participate in the care of your patient. Please feel free to contact me if you have any questions. Orders: Orders Basic Metabolic Panel Today I50.32 - Chronic diastolic (congestive) heart failure Complete Blood Count no Diff Today I50.32 - Chronic diastolic (congestive) heart failure B Type Natriuretic Peptide Today I50.32 - Chronic diastolic (congestive) heart failure Coding Level of Care Code Est Pt Level 4 (37008) Diagnoses Chronic heart failure with preserved ejection fraction I50.32 Heart failure chronicity: chronic
== END 2024-03-06 15:53 | disposition home or self-care (01) ==
PROVIDERS: PCP Internal Medicine; Visit Provider Internal Medicine Cardiovascular Disease
DX: I50.32 Chronic diastolic (congestive) heart failure (principal)
CPT/HCPCS: 99214

== ENCOUNTER → 2024-03-06 14:55 | Outpatient (BNVA) | payer MEDICARE, SELFPAY | PROVIDERS: PCP Internal Medicine; Visit Provider Internal Medicine Cardiovascular Disease | DX: I50.32 Chronic diastolic (congestive) heart failure (principal) | CPT/HCPCS: 99212 ==

== ENCOUNTER 2024-03-18 13:07 | Outpatient (REF) | payer MEDICARE, SELFPAY ==
[2024-03-18 13:54] LABS: Hematocrit 34.1 % (37.0-47.0); Hemoglobin 10.9 g/dl (12.0-16.0); Mean Corpuscular Hemoglobin 31.9 pg (27.0-33.0); Mean Corpuscular Volume 99.7 fL (80.0-98.0); Mean Platelet Volume 10.6 fL (9.4-12.3); Platelet Count 270 X10*3/uL (160-400); Red Blood Count 3.42 X10*6/uL (4.20-5.50); Red Cell Distribution Width 13.5 % (11.0-16.0); White Blood Count 15.5 X10*3/uL (4.8-10.8)
[2024-03-18 14:18] LABS: B Type Natriuretic Peptide 547 pg/mL (<100)
[2024-03-18 14:31] LABS: Anion Gap 14 (12-20); Blood Urea Nitrogen 27 mg/dL (9-16); Carbon Dioxide 34 mmol/L (22-29); Chloride 97 mmol/L (96-108); Estimated Glomerular Filt Rate > 60; Glucose Random 110 mg/dL (60-115); Potassium 3.6 mmol/L (3.3-5.1); Sodium 141 mmol/L (135-145)
== END 2024-03-18 13:08 | disposition home or self-care (01) ==
LOC: HO.LAB 13:07
PROVIDERS: Absent Provider Internal Medicine; PCP Internal Medicine; Visit Provider Internal Medicine Cardiovascular Disease
DX: I50.32 Chronic diastolic (congestive) heart failure (principal); R53.83 Other fatigue; R61 Generalized hyperhidrosis
CPT/HCPCS: 36415; 80048; 83880; 85027; 87040

== ENCOUNTER 2024-03-21 11:03 | Outpatient (AMB) | payer MEDICARE, SELFPAY ==
--- NOTE | 2024-03-21 11:07 | A.OFFVIS_ITS ---
Vital Signs 03/21/24 11:09 Height 5 ft 3 in Weight 127 lb BMI 22.5 BP 110/60 Blood Pressure Location Lt brachial Position Sitting Pulse 80 Pulse Source Pulse Oximeter Pulse Oximetry (%) 98 Oxygen Delivery Method Room Air Comment 2 Liters Oxygen(Inogen One) Intake Visit Reasons: Dyspnea Allergies morphine Allergy (Severe, Verified 03/21/24 11:08) Itching avocado [AVOCADO] Allergy (Mild, Verified 03/21/24 11:08) ITCHY THROAT, RASH azithromycin [AZITHROMYCIN] Allergy (Mild, Verified 03/21/24 11:08) ITCHY THROAT, RASH barium iodide [BARIUM IODIDE] Allergy (Mild, Verified 03/21/24 11:08) ITCHY THROAT, RASH barium sulfate Allergy (Mild, Verified 03/21/24 11:08) Itch bee pollen [BEE STINGS] Allergy (Mild, Verified 03/21/24 11:08) ITCHY THROAT, RASH ciprofloxacin [From CIPRO] Allergy (Mild, Verified 03/21/24 11:08) ITCHY THROAT, RASH clarithromycin [From BIAXIN] Allergy (Mild, Verified 03/21/24 11:08) ITCHY THROAT, RASH diatrizoate meglumine [From GASTROGRAFIN] Allergy (Mild, Verified 03/21/24 11:08) ITCHY THROAT, RASH diatrizoate sodium [From GASTROGRAFIN] Allergy (Mild, Verified 03/21/24 11:08) ITCHY THROAT, RASH diclofenac [From VOLTAREN] Allergy (Mild, Verified 03/21/24 11:08) ITCHY THROAT, RASH erythromycin base [ERYTHROMYCIN BASE] Allergy (Mild, Verified 03/21/24 11:08) ITCHY THROAT, RASH gentamicin [GENTAMICIN] Allergy (Mild, Verified 03/21/24 11:08) ITCHY THROAT, RASH Iodinated Contrast Media [IVP DYE] Allergy (Mild, Verified 03/21/24 11:08) ITCHY THROAT, RASH levofloxacin [From LEVAQUIN] Allergy (Mild, Verified 03/21/24 11:08) ITCHY THROAT, RASH metronidazole [From FLAGYL] Allergy (Mild, Verified 03/21/24 11:08) ITCHY THROAT, RASH moxifloxacin [From AVELOX] Allergy (Mild, Verified 03/21/24 11:08) ITCHY THROAT, RASH Penicillins [PENICILLINS] Allergy (Mild, Verified 03/21/24 11:08) ITCHY THROAT, RASH shrimp [SHRIMP] Allergy (Mild, Verified 03/21/24 11:08) ITCHY THROAT, RASH Sulfa (Sulfonamide Antibiotics) [SULFA (SULFONAMIDE ANTIBIOTICS)] Allergy (Mild, Verified 03/21/24 11:08) ITCHY THROAT, RASH vancomycin [VANCOMYCIN] Allergy (Mild, Verified 03/21/24 11:08) ITCHY THROAT, RASH clindamycin Adverse Reaction (Intermediate, Verified 03/21/24 11:08) Unknown HPI Comments Details: The patient is a 78 y/o woman with a complicated history which includes: COPD, KANDY, pulmonary HTN, history pulmonary emboli on chronic anticoagulation, lung CA Stage IIIA s/o neoadjuvant chemoradiation and Left upper lobe lobectomy. She did have a CT scan today that I personally reviewed. Has not been personally read by the radiologist. Based on my reading she has some pulmonary nodules some that are new 4 mm in the right major fissure area. Other nodules are stable. Other post operative and pulmonary fibrotic changes stable. The patient should get a CT scan in 6 months. Also to note, she did not tolerate the Incruse nor budesonide. Will consider Daliresp. She was admitted to [facility] with diverticulitis. She was placed on IV antibiotics but she left against medical advice because she did not like the antibiotic options. In the meantime she was having some issues with coughing up some blood. She is also concerned because on her visit to [facility] she did have a CT scan of the chest and she was told that she had significant scarring of her lungs in addition to lung volume loss. I have not looked at the CT scan back in reassured her that she has had this radiation fibrosis for long time and volume loss due to the scarring was p resent before. We did review her perfusion scan demonstrating no defects to suggest any blood clots. Interestingly in the quantitative study the patient did have 81% of the blood flow going to her right lung and 18% going to the left. This is likely due to her previous surgery and also radiation changes. 11/09/2023 the patient is here for a pulmonary follow-up visit. During the last visit the patient was having chest discomfort dizziness. We did check a D-dimer that was significantly elevated. The patient did go to [facility] which she did have a CTA. The patient did not have any evidence of any blood clots. I did personally review the CTA demonstrating stable postoperative changes and fibrotic changes. No significant new nodules noted. Again no thromboembolic disease. The patient was discharged. She has been doing okay she has been using her oxygen. She continued on the diuretics. She has episodes of palpitations with heart rate she states goes up to 150 beats per minute. During those episodes she does drop her saturations down to the 80s. Usually the symptoms subside after several minutes. The patient in the meantime has been complaining of lower extremity pain especially behind her knee on her left lower extremity. We did again recheck his D-dimer continues to be elevated so therefore will do lower extremity Dopplers. The patient is on Coumadin and her last INR was documented to be 1.5 which is her therapeutic window specially since she has platelet dysfunction. She continues respiratory therapy. She did have an episode of palpitations when using the nebulizer so I did recommend she can only use half a treatment if she really needs it. Otherwise she should try to refrain from its specially if she has had more cardiac instability and ir ritability. We also checked her electrolytes because of that as well. Her potassium was 3.1. She had not taken today's dose of potassium so therefore I did emphasize importance of taking her potassium oral supplementation to minimize cardiac arrhythmias. 12/15/2023 the patient is here for pulmonary follow-up visit. Still having difficulties with her lower extremity edema. I did reassure her that her weight has been stable in that is more important. She has already a dose of diuretics. The patient has been having some bruising primarily because of the compression stockings. This is typical specially with her anticoagulation and platelet dysfunction. The patient also has a cough chest congestion. She has chronic lung disease and COPD with chronic bronchitis explained to her that she will always make mucus. She responds well to the oxygen she is using more regularly with good response. The patient has been using her BiPAP. BiPAP therapy has been affecting beneficial although her AHI now is elevated up to 15. She is having some central apneas. I did check a blood gas in her pCO2 is 59 mm Hg. At this point she is feeling BiPAP. The patient has hypercarbic respiratory failure due to her COPD. This carries a poor prognosis and high risk for hospitalizations. Therefore we are going to switch over to a noninvasive ventilator, astral. This provide her with better gas exchange improved prognosis and decrease hospitalizations. I did talk to the [employer] that supplies with the BiPAP to switch over to the astral at this time. 12/26/2023 the patient is here for sick visit. Since her last visit she did have a blood gas demonstrating an elevated CO2 of 59 mm Hg. The patient has hypercarbic respiratory failure due to her COPD. In addition to that she does have significant sleep apnea. She has been on BiPAP and she has had multiple sleep studies demonstrating the BiPAP settings are appropriate for her. Although, the last downloaded demonstrated that her AHI significantly increased up to about 15 events per hour. Some component of central apneas noted suggesting a complex sleep apnea picture. Therefore, based on the fact that she has hypercarbic respiratory failure we did set up with an astral. She has tried over the weekend she states that she developed significant chest pain shortness of breath she can not tolerate it. She does want keep using it. She went back to him BiPAP. In view of her worsening AHI will go ahead and refer her to a sleep specialist in addition to that will request an in-lab titration study to see if we can adequately titrate her on a BiPAP or IVAP. In the meantime she does continue with her ongoing shortness of breath cough mucus plugging. She does have some wheezing on examination. She needs to make sure to use her inhalers and she can also use her nebulizer as needed. She is already on prednisone 2.5 mg twice a day were not going to increase this at this time. She does have poor sleep quality. She is also having issues with a times being tearful and somewhat depressed. Also affecting her sleep-wake cycle. She is currently on trazodone with partial improvement. She is trying to get off the benzodiazepines because she has concerned the CO2 retention. I believe this is reasonable. 01/26/2024 the patient is here for a pulmonary follow-up visit. She was recently hospital for a injury to her lower extremity. Apparently she was her by a shopping cart were hit her leg and caused her to have a significant hematoma. It did requiring debridement at the bedside. She went to a rehab and then she came back and now she has had a different rehab. Now getting wound care. In the meantime she still having difficulties with breathing. She has been using her oxygen at 2 L. when she does not use her oxygen she tends to go to tachyarrhythmias so therefore did recommend she continue using her oxygen all times. The patient also has been using the BiPAP. She did not tolerate the AVAP. I did download the BiPAP and her AHI continues to be elevated still. Therefore increased her EPAP from 8-10. Now she has a settings of BiPAP of 16/10. She will call next week to let me know how she is doing a can download the machine is if we can increase it further. Will slowly increase it to get to the effective therapeutic pressures. She has other complaints including dry mouth nausea likely from her new medications specially pain medications and she did complete antibiotics for her extremity wound. She continues on Coumadin. While in the hospital she did have a V/Q scan which was indeterminate but no evidence of any PE that could be appreciated. She continues with respiratory therapy with good effect. Will follow-up the patient hopefully in 3-4 weeks and hopefully she is home by then. 02/15/2024 the patient is here for pulmonary follow-up visit. She is still the rehabilitation. She is recovering from the right lower extremity wound. She is having more pain and swelling. She needs to be evaluated for the wound. We did call vascular surgery and they recommended that she follow-up with wound care. Looks like wound care already saw her in the hospital. Will try to facil itate her care so therefore put a referral in to make sure that she gets seen as well as possible in view of the significant mood that she has. From a respiratory status the patient is doing okay. She is using her oxygen with good effect. The patient also has been using the BiPAP at nighttime. The BiPAP therapy continues to be affecting beneficial. She does complaint of chest pain and pressure. Is substernal in nature. Seems to be ongoing. No pleuritic component. Will have her get a chest x-ray to make sure. But since she is still at rehab she can have 1 done while she is there. In the meantime we did do an EKG demonstrating the conduction abnormalities. Appear to be stable. She does have increasing anxiety. I did recommend she can take Anxiolytic medicine during the day and also as needed. 03/21/2024 the patient is here for pulmonary follow-up visit. She has multiple complaints. She is entirely seems any physicians. She is still dealing with the wound getting plenty of wound care 4. Still getting debrided. In addition to that she has had a productive cough. The phlegm is now clear but thick difficult to expectorate. Sometimes feel like it is dripping for nasal passages down like a postnasal drip. The patient is currently on cefpodoxime. She is finishing a course. We did try to get sputum in the office but she was not able to do so. I did give her a cup in order for her to be doing her own time. We will be able to look for both Gram stain culture and also AFB. The patient also had a chest x-ray which I personally reviewed and also compared to her previous x-rays. It appears that she has worsening left-sided pleural effusion. Hard to know that is long as very affected on that side there is any active disease otherwise. She has not had a CT scan since October. In view of the worsening chest x-ray in the ongoing symptoms will go ahead and request a CT scan time. The patient also could try some Mucomyst. I will send some to the pharmacy to see if we can get it. She understands that is hard to get. When she gets she can use it twice a day for CPT to see if this helps clear the secretions that gets that within her airways. In addition to that the patient has been using the BiPAP. The BiPAP therapy has been affecting beneficial. She does use it for more than 4 hours a night. However, she does have a component of hypercarbia and she would do better with the noninvasive ventilator. Currently she is set up for sleep study at [facility] coming up. Hopefully they can do a split study and try titrate her figure out what her best form of therapy it is. At some point though if she continues on the BiPAP will need to replace it because his older than 5 years. [facility] Medical History (Updated 03/21/24 @ 11:28 by Henry Kelly MD) COPD (chronic obstructive pulmonary disease) Open wound Warfarin anticoagulation Complex sleep apnea syndrome Chronic hypercapnic respiratory failure Leg pain Anemia Tachycardia DVT (deep venous thrombosis) Compression fracture of body of thoracic vertebra ASD (atrial septal defect) Pleuritic chest pain History of COVID-19 Chronic anticoagulation Hypothyroidism GERD (gastroesophageal reflux disease) Hyperlipidemia Hypertension Factor 5 Leiden mutation, heterozygous History of non-ST elevation myocardial infarction (NSTEMI) Hypoxia Anxiety PTSD (post-traumatic stress disorder) Hemoptysis Dyspnea Tracheobronchitis CLARA positive Diverticulitis Allergic bronchitis (HFpEF) heart failure with preserved ejection fraction Subarachnoid bleed Insomnia Anti-phospholipid antibody syndrome Hypogammaglobulinemia Chronic respiratory failure Arterial insufficiency of lower extremity Complex regional pain syndrome i of right lower limb Post herpetic neuralgia Pulmonary hypertension Pericardial effusion Pulmonary emboli Pleural effusion Radiation fibrosis of lung Pneumonitis Pulmonary nodules KANDY treated with BiPAP Lung cancer Surgical History History of colonoscopy History of lung surgery History of tonsillectomy History of hysterectomy S/P mitral valve clip implantation History of cardiac cath Family History Sister No problems noted. Mother Cardiovascular disease Daughter Tachycardia Other KANDY (obstructive sleep apnea) Social History Household Members: Other Housing: [facility] Do you presently have visiting nurse or other home services: Yes (at home had [employer] that came to visit her) Unable to assess alcohol history related to: Unknown Alcohol intake: former Comment: stand by assist with ambulation Patient Tobacco Use Status: Never used Tobacco Second Hand Smoke Exposure: No Advance Directives Date on File: 06/15/22 service: No Current occupational status: retired Review of Systems Const Denies chills, Reports daytime sleepiness, Reports fatigue, Denies fever(s), Denies frequent falls, Denies weakness, Denies weight gain and Denies weight loss Eyes Reports change in vision ENT Denies change in voice and Denies dizziness Card Reports chest pain, Denies leg edema, Denies lightheadedness, Denies palpitations, Denies dyspnea, Reports dyspnea on exertion, Denies orthopnea and Denies other (loss of consciousness) Resp Reports cough, Denies pain on inspiration, Denies pain with cough, Denies dyspnea and Reports dyspnea on exertion GI Denies hematochezia and Denies change in stool character Musc Reports as per HPI, Reports abnormal gait and Reports muscle weakness Skin/Breast Reports change in pigmentation, Reports skin swelling and Reports unusual bruising Neuro Reports abnormal gait, Denies dizziness, Denies frequent falls and Denies weakness Psych Reports depression Endo Reports fatigue and Denies palpitations Physical Exam Vital Signs: Last Vital Signs Pulse 80 03/21/24 11:09 BP 110/60 03/21/24 11:09 Pulse Ox 98 03/21/24 11:09 Oxygen Delivery Method Room Air 03/21/24 11:09 BMI result Body Mass Index 22.5 Last Vital Signs Temp 97.7 F 06/20/22 08:00 Pulse 90 06/20/22 08:00 Resp 16 06/20/22 08:00 BP 137/60 06/20/22 08:00 Pulse Ox 93 06/20/22 08:00 O2 Del Method 06/20/22 08:00 O2 Flow Rate 2 06/20/22 08:00 FiO2 45 06/14/22 11:07 BMI result Body Mass Index 23.0 Const General: cooperative, comfortable, alert and awake Orientation/consciousness: patient oriented x3 HEENT Head: Yes atraumatic Eyes General: appearance normal, both eyes and all related structures Neck Neck: Yes trachea midline, Yes supple and Yes no JVD Chest Chest palpation & inspection: tenderness rib (right side) Resp Effort & Inspection: normal respiratory effort, no cough and No prolonged expiratory phase Auscultation: no rales, no rhonchi, wheezes and diminished lung sounds Cardio Rate: regular rate Rhythm: regular rhythm Heart sounds: S1 normal heart sound present, S2 normal heart sound present and Abnormal heart opening sounds loud S2 GI Auscultation: normal bowel sounds Skin General skin exam: purpura and scars Neuro General: patient oriented x3 and no focal motor deficits Extrem Right lower extremity: edema Office Procedures Nebulizer Treatment Nebulizer Treatment [id number] RX initial, or Nebulizer Subsequent Treatment Office Meds sodium chloride 3 % for nebulization Performing Provider: Henry Kelly MD Performing Location: [facility] Administered by: Norma Newman LPN on 03/21/24 12:03 Dose Route Admin Location Dispensed Lot Number Expiration Date [facility] [employer] 3 mL inhalation 3 mL [id number] 04/08/25 [id number] [employer] Assessment & Plan Assessment & Plan (1) Chronic hypercapnic respiratory failure: Code(s): J96.12 - Chronic respiratory failure with hypercapnia Category: Medical (2) Complex sleep apnea syndrome: Code(s): G47.31 - Primary central sleep apnea Category: Medical (3) Pulmonary hypertension: Comment: severe based on RHC, moderate based on recent echo Code(s): I27.20 - Pulmonary hypertension, unspecified Category: Medical (4) Pulmonary nodules: Code(s): R91.8 - Other nonspecific abnormal finding of lung field Category: Medical (5) Chronic respiratory failure: Code(s): J96.10 - Chronic respiratory failure, unspecified whether with hypoxia or hypercapnia Category: Medical Qualifiers: Qualified Code(s): J96.11 - Chronic respiratory failure with hypoxia; J9 6.12 - Chronic respiratory failure with hypercapnia (6) KANDY treated with BiPAP: Code(s): G47.33 - Obstructive sleep apnea (adult) (pediatric) Category: Medical (7) Radiation fibrosis of lung: Code(s): J70.1 - Chronic and other pulmonary manifestations due to radiation Category: Medical (8) COPD (chronic obstructive pulmonary disease): Code(s): J44.9 - Chronic obstructive pulmonary disease, unspecified Category: Medical Qualifiers: COPD type: chronic bronchitis Chronic bronchitis type: simple Qualified Code(s): J41.0 - Simple chronic bronchitis (9) Diastolic CHF: Code(s): I50.30 - Unspecified diastolic (congestive) heart failure Category: Medical Qualifiers: Heart failure chronicity: chronic Qualified Code(s): I50.32 - Chronic diastolic (congestive) heart failure (10) (HFpEF) heart failure with preserved ejection fraction: Code(s): I50.30 - Unspecified diastolic (congestive) heart failure Category: Medical Qualifiers: Heart failure chronicity: chronic Qualified Code(s): I50.32 - Chronic diastolic (congestive) heart failure (11) Lung cancer: Code(s): C34.90 - Malignant neoplasm of unspecified part of unspecified bronchus or lung Category: Medical Qualifiers: Laterality: left Lung location: upper lobe of lung Qualified Code(s): C34.12 - Malignant neoplasm of upper lobe, left bronchus or lung (12) Pleural effusion: Code(s): J90 - Pleural effusion, not elsewhere classified Category: Medical Plan prednisone 2.5 mg QOD Ambien for sleep continue Advair ASHA as needed continue ASHA (xopenex) as needed start mucomyst via neb BID CPT with acapella valve fluticasone Oxygen 2L/pulse with activity and sleep. POC Inogen G5 sputum cx and AFB duiresis as tolerated BIPAP 16 to 22/02 to 24/04 Awaiting sleep study at [facility] wound care f/u CT chest F/U 6-8 weeks Orders: Orders Sputum Cult + Gram stain Today J41.0 - Simple chronic bronchitis Acid-fast Culture + Smear Today J41.0 - Simple chronic bronchitis AMB Nebulizer Treatment Today J41.0 - Simple chronic bronchitis CT chest wo IV con Today C34.12 - Malignant neoplasm of upper lobe, left br onchus or lung, J18.9 - Pneumonia, unspecified organism, J90 - Pleural effusion, not elsewhere classified, R91.8 - Other nonspecific abnormal finding of lung field Medications: New acetylcysteine 2 mL inhalation BID 120 mL 5RF 30 days J41.0 - Simple chronic bronchitis Coding Level of Care Code Est Pt Level 5 (27610) Complex EM visit Add On G2211 Diagnoses Chronic hypercapnic respiratory failure J96.12 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 Pulmonary hypertension I27.20 Pulmonary nodules R91.8 Chronic respiratory failure with hypoxia and hypercapnia J96.11; J96.12 KANDY treated with BiPAP G47.33 Radiation fibrosis of lung 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 Chronic heart failure with preserved ejection fraction I50.32 Heart failure chronicity: chronic Malignant neoplasm of upper lobe of left lung C34.12 Laterality: left Lung location: upper lobe of lung Pleural effusion J90 CPT Codes Nebulizer Treatment - Nebulizer Treatment, initial or subsequent: [id number] Nebulizer/MDI RX initial, or Nebulizer Subsequent Treatment ([id number]) Time Spent (min) 60
[2024-03-21 11:09] VITALS: BP 110/60; PULSE 80; O2SAT 98; BMI 22.5
== END 2024-03-21 12:02 | disposition home or self-care (01) ==
PROVIDERS: PCP Internal Medicine; Visit Provider Hospitalist
DX: J96.12 Chronic respiratory failure with hypercapnia (principal); G47.31 Primary central sleep apnea; I27.20 Pulmonary hypertension, unspecified; J41.0 Simple chronic bronchitis; J96.11 Chronic respiratory failure with hypoxia; J70.1 Chronic and other pulmonary manifestations due to radiation; I50.32 Chronic diastolic (congestive) heart failure; C34.12 Malignant neoplasm of upper lobe, left bronchus or lung; J90 Pleural effusion, not elsewhere classified
CPT/HCPCS: 99215; G2211

== ENCOUNTER → 2024-03-21 11:03 | Outpatient (BNVA) | payer MEDICARE, SELFPAY | PROVIDERS: PCP Internal Medicine; Visit Provider Hospitalist | DX: I27.20 Pulmonary hypertension, unspecified (principal); J96.11 Chronic respiratory failure with hypoxia; J96.12 Chronic respiratory failure with hypercapnia; J70.1 Chronic and other pulmonary manifestations due to radiation; R91.8 Other nonspecific abnormal finding of lung field; G47.31 Primary central sleep apnea; J41.0 Simple chronic bronchitis; I11.0 Hypertensive heart disease with heart failure; I50.32 Chronic diastolic (congestive) heart failure; J90 Pleural effusion, not elsewhere classified; C34.90 Malignant neoplasm of unspecified part of unspecified bronchus or lung | CPT/HCPCS: 94640; 99212 ==

== ENCOUNTER 2024-03-22 14:27 | Outpatient (REF) | payer MEDICARE, SELFPAY | END 2024-03-22 14:28 | disposition home or self-care (01) | LOC: HO.LNP 14:27 | PROVIDERS: Visit Provider Hospitalist | DX: J41.0 Simple chronic bronchitis (principal) | CPT/HCPCS: 87070; 87116; 87205; 87206 ==

== ENCOUNTER 2024-03-25 14:59 | Outpatient (AMB) | payer MEDICARE, SELFPAY ==
--- NOTE | 2024-03-25 15:01 | MHC.OFFVIS ---
Vital Signs 03/25/24 15:02 Height 5 ft 3 in Weight 129 lb 10.109 oz BMI 23.0 BP 112/60 Blood Pressure Location Lt brachial Position Sitting Pulse 73 Pulse Source Pulse Oximeter Intake Visit Reasons: 4 mnth f/up Intake Note: 4 mth f/up Lath Tier Required: No Accompanied by: Self / Same As Patient Allergies morphine Allergy (Severe, Verified 03/21/24 11:08) Itching avocado [AVOCADO] Allergy (Mild, Verified 03/21/24 11:08) ITCHY THROAT, RASH azithromycin [AZITHROMYCIN] Allergy (Mild, Verified 03/21/24 11:08) ITCHY THROAT, RASH barium iodide [BARIUM IODIDE] Allergy (Mild, Verified 03/21/24 11:08) ITCHY THROAT, RASH barium sulfate Allergy (Mild, Verified 03/21/24 11:08) Itch bee pollen [BEE STINGS] Allergy (Mild, Verified 03/21/24 11:08) ITCHY THROAT, RASH ciprofloxacin [From CIPRO] Allergy (Mild, Verified 03/21/24 11:08) ITCHY THROAT, RASH clarithromycin [From BIAXIN] Allergy (Mild, Verified 03/21/24 11:08) ITCHY THROAT, RASH diatrizoate meglumine [From GASTROGRAFIN] Allergy (Mild, Verified 03/21/24 11:08) ITCHY THROAT, RASH diatrizoate sodium [From GASTROGRAFIN] Allergy (Mild, Verified 03/21/24 11:08) ITCHY THROAT, RASH diclofenac [From VOLTAREN] Allergy (Mild, Verified 03/21/24 11:08) ITCHY THROAT, RASH erythromycin base [ERYTHROMYCIN BASE] Allergy (Mild, Verified 03/21/24 11:08) ITCHY THROAT, RASH gentamicin [GENTAMICIN] Allergy (Mild, Verified 03/21/24 11:08) ITCHY THROAT, RASH Iodinated Contrast Media [IVP DYE] Allergy (Mild, Verified 03/21/24 11:08) ITCHY THROAT, RASH levofloxacin [From LEVAQUIN] Allergy (Mild, Verified 03/21/24 11:08) ITCHY THROAT, RASH metronidazole [From FLAGYL] Allergy (Mild, Verified 03/21/24 11:08) ITCHY THROAT, RASH moxifloxacin [From AVELOX] Allergy (Mild, Verified 03/21/24 11:08) ITCHY THROAT, RASH Penicillins [PENICILLINS] Allergy (Mild, Verified 03/21/24 11:08) ITCHY THROAT, RASH shrimp [SHRIMP] Allergy (Mild, Verified 03/21/24 11:08) ITCHY THROAT, RASH Sulfa (Sulfonamide Antibiotics) [SULFA (SULFONAMIDE ANTIBIOTICS)] Allergy (Mild, Verified 03/21/24 11:08) ITCHY THROAT, RASH vancomycin [VANCOMYCIN] Allergy (Mild, Verified 03/21/24 11:08) ITCHY THROAT, RASH clindamycin Adverse Reaction (Intermediate, Verified 03/21/24 11:08) Unknown Medication List - Last Reconciled 03/25/24 by Luis Eduardo Cadet MD acetaminophen 650 mg PO Q6H PRN acetylcysteine 2 mL inhalation BID 30 days Advair HFA 230-21 mcg/actuation (fluticasone propion-salmeterol) 2 puffs inhalation BID 90 days NS biotin 3 mg PO DAILY bisacodyl 10 mg UT DAILY PRN cefuroxime axetil 500 mg PO BID chlorhexidine gluconate 0.12% 15 mL buccal BID 14 days codeine-guaifenesin 10-100 mg/5 mL 10 mL PO Q4-6H PRN CPAP (CPAP Machine/Device) As directed diazepam 5 mg PO BID PRN docusate sodium 100 mg PO DAILY epinephrine 0.3 mg IM USEASDIRECTD PRN ferrous sulfate 325 mg PO DAILY fluticasone propionate 50 mcg/actuation 2 sprays intranasal DAILY furosemide 80 mg PO BID guaifenesin 400 mg PO TID levocetirizine 5 mg PO DAILY 90 days levothyroxine (Synthroid) 25 mcg PO MOTUWETHFR@0600 levothyroxine (Synthroid) 50 mcg PO SUSA@0600 magnesium hydroxide (Milk of Magnesia) 30 mL PO NEEDED PRN metoprolol succinate ER (Toprol XL) 50 mg PO BID montelukast 10 mg PO DAILY nebulizers As directed ondansetron 4 mg PO Q4H PRN oxycodone 5 mg PO Q8H PRN Oxygen Home Use As directed potassium chloride 40 mEq PO DAILY prednisone 2.5 mg PO DAILY 90 days rosuvastatin 10 mg PO MOWEFR simethicone (Gas Relief (simethicone)) 80 mg PO QIDWMHS sodium phosphates 19-7 gram/118 mL (Enema) 118 mL UT NEEDED PRN trazodone 100 mg (2 x 50 mg) PO BEDTIME warfarin (Jantoven) 1.5 mg PO DAILY@1800 HPI Comments Details: 78-year-old female complex medical issues presenting follow-up. She recently was diagnosed with severe mitral valve regurgitation was felt not to be a good surgical candidate and underwent MitraClip. She had improvement in symptoms afterwards. She has advanced lung disease due to previous lung resection as well as radiation to the lungs. She also had pulmonary embolism in the past. She has pulmonary hypertension. She is presenting now because she was becoming more short of breath and had lower extremity edema. On her own she crease her furosemide to 40 mg over the last week or so. She said her breathing did not change with that strategy. It appears early November she was in the emergency department with shortness of breath and was diagnosed with left lower lobe pneumonia. She had some sharp left-sided chest pains which were pleuritic in nature likely due to underlying pneumonia. She was given antibiotics which she has completed. She is saying that her oxygen saturations the low when she is laying down. She does not use oxygen frequently. Specifically outside her home she does not use oxygen. She has tachycardia when she is ambulating which she has noticed but does not significantly get any palpitations. She continues to get short of breath with activities. She saw a pulmonary hypertension specialist and by her description she was told that her pulmonary hypertension was mostly due to mitral regurgitation. She is following with pulmonology at [place]. 12/29/22: Was brought in for urgent follow-up. She called and was complaining of palpitations and fast heart rates as high as 120 beats per minute and was also complaining of shortness of breath. It appears she was referred for echocardiography by pulmonology and this showed that her right ventricle is [id number] dilated, right atrium was severely dilated with small pericardial effusion as before but small to moderate pleural effusion was also noted. Previous iatrogenic ASD from transseptal puncture was noted as well mitral stenosis due to mitral clip with mean gradient of 8-9 mm Hg. Previously this was 7 mm Hg. The patient was previously advised to use oxygen when she is ambulating. Apparently she was out with her friends and while walking she was not using oxygen and started feeling shortness of breath and checked her pulse and it was 120 beats per minute. She is saying when she is using oxygen she does not get similar symptoms and has not had any tachycardia while using oxygen. She has also gained few lb over the last few days. She was sent for chest x-ray which is showing left basal pleural effusion as seen on the echocardiography also. She is taking Lasix 40 mg once a day. She is on metoprolol succinate 25 mg twice a day. 01/11/23: She returns for follow-up. She had Holter monitor on her and the day she came to return it she had significant palpitations and shortness of breath while walking to the Cardiology Department. She said she was not rushing and was walking at a slow pace. She said these symptoms improved afterwards and she did not have any for the palpitations walking back to her car. She was using oxygen. She is wearing oxygen 30/01 but is saying that she feels lousy and has not felt any difference in her dyspnea or palpitations. She has been using 40 mg twice a day of Lasix. Her blood pressure control is good. Previously we did not increase her Toprol XL despite seeing some degree of mitral stenosis on her echocardiogram which is iatrogenic due to MitraClip. She has been more sedentary and is quite frail and deconditioned. She is tearful that she is unable to do any of the activities she was able to do before. 02/13/23: She returns for follow-up. She was previously on 40 mg p.o. b.i.d. Lasix. She had called our office for lower extremity edema and Lasix dose was increased to 80 mg twice a day. Subsequent to that she called or office that she is dehydrated and was advised to take 80 mg in the morning and 40 in the afternoon. She had blood workup which showed hypokalemia and she was started on potassium supplements. She continues to get fatigue and SOB. She is using oxygen when sleeping and with ambulation. Continues to get tachycardia with ambulation. 04/26/2023: She returns for follow-up. She called us yesterday because she gained 3 lb over 3 days. She was taking 40 mg p.o. b.i.d. Lasix. She was advised to take an extra dose of Lasix yesterday and increase the Lasix to 80 mg in the morning today. She said she checked her weight today and was back at 128 lb which was her baseline. She is saying she has been short of breath and fatigue. Also she had upper back pain which moved to her chest early April and she went to [facility] where she had a chest CTA performed which did not show any evidence of dissection or pulmonary embolism. Pulmonary arteries were noticed to be dilated consistent with her known history of pulmonary hypertension. 08/14/2023: She returns for follow-up. She had an episode of diverticulitis which was treated in the hospital. She said she went home and was getting some shortness of breath and wheezing and was advised to go back to the hospital and was treated for pneumonia also. She continues to have symptoms like before including chest tightness, fatigue and inability to exercise. She is on oxygen mostly at times. She complains of some edema in the lower extremity but nothing significant is noted on examination. 09/04/2023: She returns for urgent follow-up. She is complaining of shortness of breath and palpitations. She said she was tachycardic and checked her heart rate and was 100 beats per minute. She has been using oxygen most of the time. Sometimes she takes it off and if the oxygen level is dropping she wears oxygen back. During activities she has been using oxygen. Continues to get off and on chest discomfort. She had an echocardiogram done at [facility] with transmitral gradient was 7 mm Hg at a heart rate of 76 beats per minute. 10/17/23: She is here for follow-up after recent ER visit. Apparently was getting lower extremity edema and went to the emergency department where she was told that she may have congestive heart failure. No significant changes in medications were made. Her BNP was at the same level that it has been previously. She called our office and was concerned and we decided to bring her for office visit. She is saying that she was short of breath and had lower extremity edema and went to the emergency department and apparently after testing no changes in medications were made. She clearly has some peripheral edema. She also is complaining of some shortness of breath with activities. 11/20/23: She is here for follow-up. She had repeat echocardiography performed which is showing normal LV function 60-65 % without any wall motion abnormalities with elevated filling pressures, normal right ventricular systolic function with mild RV dilation, mitral clip with 8 mm pressure gradient across the mitral valve at heart rate of 88 beats per minute. [id number] pulmonary hypertension. She is complaining of fatigue and gets tired very easily. She has not been exercising and has slowed down significantly. With Lasix her volume status appears to be better but she is still complaining of off and on lower extremity edema. She is concerned about her kidneys. I have reassured her that she looks euvolemic. Also discussed with her the ECHO findings which are quite reassuring currently. 03/06/2024: She is here for follow-up. She had multiple issues since she last saw us in November. She had pneumonia followed by diverticulitis as well as a hematoma on the right lagos which was drained by surgeon. She was getting more short of breath and apparently had a chest x-ray performed which showed pleural effusions. Her Lasix dose was increased to 80 mg twice a day. She started the higher dose today. She was previously taking 80 mg and 40 mg in the morning and afternoon. Denying any other complaints. 03/25/2024: She returns for follow-up. She was recently seen for congestive heart failure episode. Her Lasix dose was increased to 80 mg twice a day. She had subsequent blood workup which showed stable kidney function. BNP improved. Clinically she has improved somewhat but continues to have some shortness of breath. She is using oxygen more frequently and appears to be calmer than before and has no obvious shortness of breath. She has been coughing and will be discussing this more with pulmonology. [facility] Medical History (Updated 03/21/24 @ 11:28 by Henry Kelly MD) COPD (chronic obstructive pulmonary disease) Open wound Warfarin anticoagulation Complex sleep apnea syndrome Chronic hypercapnic respiratory failure Leg pain Anemia Tachycardia DVT (deep venous thrombosis) Compression fracture of body of thoracic vertebra ASD (atrial septal defect) Pleuritic chest pain History of COVID-19 Chronic anticoagulation Hypothyroidism GERD (gastroesophageal reflux disease) Hyperlipidemia Hypertension Factor 5 Leiden mutation, heterozygous History of non-ST elevation myocardial infarction (NSTEMI) Hypoxia Anxiety PTSD (post-traumatic stress disorder) Hemoptysis Dyspnea Tracheobronchitis CLARA positive Diverticulitis Allergic bronchitis (HFpEF) heart failure with preserved ejection fraction Subarachnoid bleed Insomnia Anti-phospholipid antibody syndrome Hypogammaglobulinemia Chronic respiratory failure Arterial insufficiency of lower extremity Complex regional pain syndrome i of right lower limb Post herpetic neuralgia Pulmonary hypertension Pericardial effusion Pulmonary emboli Pleural effusion Radiation fibrosis of lung Pneumonitis Pulmonary nodules KANDY treated with BiPAP Lung cancer Surgical History History of colonoscopy History of lung surgery History of tonsillectomy History of hysterectomy S/P mitral valve clip implantation History of cardiac cath Family History Sister No problems noted. Mother Cardiovascular disease Daughter Tachycardia Other KANDY (obstructive sleep apnea) Social History Household Members: Other Housing: Assisted Do you presently have visiting nurse or other home services: Yes (at home had [employer] that came to visit her) Unable to assess alcohol history related to: Unknown Alcohol intake: former Comment: stand by assist with ambulation Patient Tobacco Use Status: Never used Tobacco Second Hand Smoke Exposure: No Advance Directives Date on File: 06/15/22 service: No Current occupational status: retired Review of Systems Const Denies chills, Denies fatigue, Denies fever(s), Denies frequent falls, Denies weakness, Denies weight gain and Denies weight loss ENT Denies dizziness Card Denies chest pain, Denies leg edema, Denies lightheadedness, Denies palpitations, Denies dyspnea and Denies dyspnea on exertion Resp Denies cough, Denies dyspnea and Denies dyspnea on exertion GI Denies hematochezia Musc Denies abnormal gait, Denies muscle weakness, Denies numbness, Denies radiating pain into limb and Denies tingling Neuro Denies abnormal gait, Denies dizziness, Denies frequent falls, Denies numbness, Denies tingling and Denies weakness Endo Denies fatigue and Denies palpitations Physical Exam Vital Signs: Last Vital Signs Pulse 73 03/25/24 15:02 BP 112/60 03/25/24 15:02 BMI result Body Mass Index 23.0 GENERAL APPEARANCE: In no distress. NECK/THYROID: no carotid bruit, no JVD. SKIN: no suspicious lesions, warm and dry. HEART: no murmurs, regular rate and rhythm, S1, S2 normal. LUNGS: clear to auscultation bilaterally. ABDOMEN: normal, bowel sounds present, soft, nontender, nondistended. EXTREMITIES: no clubbing, cyanosis. No edema. PERIPHERAL PULSES: equal. NEUROLOGIC: nonfocal, alert and oriented. Assessment & Plan Assessment & Plan (1) Diastolic CHF: Code(s): I50.30 - Unspecified diastolic (congestive) heart failure Category: Medical Qualifiers: Heart failure chronicity: chronic Qualified Code(s): I50.32 - Chronic diastolic (congestive) heart failure Plan Pleasant 78-year-old female with complex medical issues who is here for follow-up. Recent pneumonia and diverticulitis and subsequent episode of congestive heart failure. Lasix was increased to 80 mg twice a day and she has done well with that approach. She is on some supplemental potassium and her potassium levels are borderline. I am starting her on spironolactone 25 mg daily. I have advised her to stop the potassium supplements in couple of days. I think this will help regulate her volume status and will also stabilize the potassium. Spironolactone is shown to decrease rehospitalization for diastolic heart failure. Overall she appears to be stable and improved compared to before. I have reassured her. We will repeat blood workup in couple of weeks but she is taking spironolactone. Thank you for allowing me to participate in the care of your patient. Please feel free to contact me if you have any questions. Orders: Orders Basic Metabolic Panel Today I50.32 - Chronic diastolic (congestive) heart failure Medications: New spironolactone 25 mg PO DAILY 90 tabs 3RF I50.32 - Chronic diastolic (congestive) heart failure Coding Level of Care Code Est Pt Level 4 (07568) Diagnoses Chronic diastolic congestive heart failure I50.32 Heart failure chronicity: chronic
[2024-03-25 15:02] VITALS: BP 112/60; PULSE 73; BMI 23.0
== END 2024-03-25 15:41 | disposition home or self-care (01) ==
PROVIDERS: PCP Internal Medicine; Visit Provider Internal Medicine Cardiovascular Disease
DX: I50.32 Chronic diastolic (congestive) heart failure (principal)
CPT/HCPCS: 99214

== ENCOUNTER → 2024-03-25 14:59 | Outpatient (BNVA) | payer MEDICARE, SELFPAY | PROVIDERS: PCP Internal Medicine; Visit Provider Internal Medicine Cardiovascular Disease | DX: I50.32 Chronic diastolic (congestive) heart failure (principal); Z79.899 Other long term (current) drug therapy | CPT/HCPCS: 99212 ==

== ENCOUNTER 2024-04-11 14:15 | Emergency (ER) | payer MEDICARE, SELFPAY ==
--- NOTE | ~2024-04-11 | US_ITS ---
EXAMINATION: US TRIPLEX LOWER EXTREMITY, LEFT CLINICAL INFORMATION: Calf pain COMPARISON: DVT ultrasound November 17, 2023 TECHNIQUE: Color-flow triplex imaging with spectral analysis and compression Doppler were performed on the left lower extremity. FINDINGS: Respiratory variation, normal compression and augmented flow are noted throughout the left lower extremity. The visualized common femoral vein, superficial femoral vein, profunda femoral vein, popliteal vein and midcalf peroneal and posterior tibial venous segments show no evidence of deep venous thrombosis. Possible small volume wall adherent chronic thrombus in the popliteal vein. There is no Levy's cyst. US/US venous duplex LE IMPRESSION: No evidence of acute deep venous thrombosis involving the left lower extremity. Electronically signed by: Rosendo Schreiber MD 04/11/2024 04:45 PM EDT
[2024-04-11 15:02] VITALS: BP 135/60; PULSE 76; RESP 16; TEMP 36; O2SAT 100; BMI 22.3
--- NOTE | 2024-04-11 15:04 | ED.EXTPRO ---
HPI - Extremity Problem General Chief complaint: Extremity Injury, Lower Stated complaint: pain l calf Time Seen by Provider: 04/11/24 17:03 Source: patient Mode of arrival: ambulatory Limitations: no limitations History of Present Illness ED Provider: Og Berger PA-C HPI Narrative: 79-year-old female with a history of COPD on home oxygen, anemia, history of PE on Coumadin, HFpEF, CAD s/p NSTEMI, pulmonary HTN, KANDY on BiPAP who presents to the ER for evaluation of left calf pain that started today. No significant swelling. No trauma. She wears compression stockings at baseline. She reports the pain is in the lower calf and is tender to touch. She has been compliant with her Coumadin and her last INR is 1.9. She reports her goal is 1.5-2 given bleeding issues in the past. She was sent here for lower extremity Doppler by her PCP as they were unable to get her added onto an outpatient study. MD Complaint: extremity pain Onset (ago): day(s) (1) Pain Consistency: constant Location: left and lower extremity Severity scale (1-10): 4 Quality: aching Radiation: none Relieving factors: rest Exacerbating factors: weight bearing, walking and palpation Associated symptoms: denies other symptoms Related Data Home Medications ?Medication ?Instructions ?Recorded ?Confirmed levothyroxine 25 mcg tablet 25 mcg PO MOTUWETHFR@0600 06/14/22 03/25/24 (Synthroid) CPAP (CPAP Machine/Device) 06/30/22 03/25/24 Oxygen Home Use 06/30/22 03/25/24 nebulizers 06/30/22 03/25/24 epinephrine 0.3 mg/0.3 mL 0.3 mg IM USEASDIRECTD PRN 07/14/22 03/25/24 injection, auto-injector Allergic Reaction levothyroxine 25 mcg tablet 50 mcg PO SUSA@0600 01/05/24 03/25/24 (Synthroid) rosuvastatin 10 mg tablet 10 mg PO MOWEFR 01/05/24 03/25/24 warfarin 2.5 mg tablet (Jantoven) 1.5 mg PO DAILY@1800 01/05/24 03/25/24 docusate sodium 100 mg capsule 100 mg PO DAILY 01/14/24 03/25/24 ferrous sulfate 325 mg (65 mg 325 mg PO DAILY 01/14/24 03/25/24 iron) tablet acetaminophen 325 mg tablet 650 mg PO Q6H PRN Pain/Fever 02/01/24 03/25/24 biotin 1 mg tablet 3 mg PO DAILY 02/01/24 03/25/24 bisacodyl 10 mg rectal suppository 10 mg TN DAILY PRN No BM x3 days 02/01/24 03/25/24 MoM not effective fluticasone propionate 50 2 spray intranasal DAILY 02/01/24 03/25/24 mcg/actuation nasal spray,suspension guaifenesin 400 mg tablet 400 mg PO TID 02/01/24 03/25/24 magnesium hydroxide 400 mg/5 mL 30 ml PO NEEDED PRN 02/01/24 03/25/24 oral suspension (Milk of Magnesia) Constipation, No BM in 3 days ondansetron 4 mg disintegrating 4 mg PO Q4H PRN Nausea/Vomiting 02/01/24 03/25/24 tablet sodium phosphates 19 gram-7 118 ml TN NEEDED PRN No result 02/01/24 03/25/24 gram/118 mL enema (Enema) from MoM and Bisacodyl Supp furosemide 40 mg tablet 80 mg PO BID 03/06/24 03/25/24 Previous Rx's ?Medication ?Instructions ?Recorded levocetirizine 5 mg tablet 5 mg PO DAILY 90 days #90 tabs 07/20/23 montelukast 10 mg tablet 10 mg PO DAILY #90 tabs 07/20/23 trazodone 50 mg tablet 100 mg (2 x 50 mg) PO BEDTIME #180 07/20/23 tabs chlorhexidine gluconate 0.12 % 15 ml buccal BID 14 days #420 mL 01/02/24 mouthwash cefuroxime axetil 500 mg tablet 500 mg PO BID #8 tabs 02/04/24 diazepam 5 mg tablet 5 mg PO BID PRN anxiety #14 tabs 02/04/24 oxycodone 5 mg tablet 5 mg PO Q8H PRN pain (scale score 02/04/24 7-10) #10 tabs simethicone 80 mg chewable tablet 80 mg PO QIDWMHS #20 tabs 02/04/24 (Gas Relief (simethicone)) metoprolol succinate 50 mg 50 mg PO BID #120 tabs 03/07/24 tablet,extended release 24 hr (Toprol XL) Advair HFA 230 mcg-21 2 puff inhalation BID 90 days #36 03/13/24 mcg/actuation aerosol inhaler grams (fluticasone propion-salmeterol) prednisone 2.5 mg tablet 2.5 mg PO DAILY 90 days #90 tabs 03/13/24 acetylcysteine 100 mg/mL (10 %) 2 ml inhalation BID 30 days #120 mL 03/21/24 solution codeine 10 mg-guaifenesin 100 mg/5 10 ml PO Q4-6H PRN cough #473 mL 03/23/24 mL oral liquid spironolactone 25 mg tablet 25 mg PO DAILY #90 tabs 03/25/24 albuterol sulfate 90 mcg/actuation 2 inh inhalation Q6H PRN shortness 04/01/24 aerosol inhaler of breath or wheezing 90 days #3 ea levalbuterol tartrate 45 2 puff inhalation Q6H PRN 04/01/24 mcg/actuation aerosol inhaler shortness of breath or wheezing 90 (Xopenex HFA) days #45 grams Allergies Allergy/AdvReac Type Severity Reaction Status Date / Time morphine Allergy Severe Itching Verified 04/11/24 15:03 avocado [AVOCADO] Allergy Mild ITCHY Verified 04/11/24 15:03 THROAT, RASH azithromycin [AZITHROMYCIN] Allergy Mild ITCHY Verified 04/11/24 15:03 THROAT, RASH barium iodide [BARIUM IODIDE] Allergy Mild ITCHY Verified 04/11/24 15:03 THROAT, RASH barium sulfate Allergy Mild Itch Verified 04/11/24 15:03 bee pollen [BEE STINGS] Allergy Mild ITCHY Verified 04/11/24 15:03 THROAT, RASH ciprofloxacin [From CIPRO] Allergy Mild ITCHY Verified 04/11/24 15:03 THROAT, RASH clarithromycin [From BIAXIN] Allergy Mild ITCHY Verified 04/11/24 15:03 THROAT, RASH diatrizoate meglumine Allergy Mild ITCHY Verified 04/11/24 15:03 [From GASTROGRAFIN] THROAT, RASH diatrizoate sodium Allergy Mild ITCHY Verified 04/11/24 15:03 [From GASTROGRAFIN] THROAT, RASH diclofenac [From VOLTAREN] Allergy Mild ITCHY Verified 04/11/24 15:03 THROAT, RASH erythromycin base Allergy Mild ITCHY Verified 04/11/24 15:03 [ERYTHROMYCIN BASE] THROAT, RASH gentamicin [GENTAMICIN] Allergy Mild ITCHY Verified 04/11/24 15:03 THROAT, RASH Iodinated Contrast Media Allergy Mild ITCHY Verified 04/11/24 15:03 [IVP DYE] THROAT, RASH levofloxacin [From LEVAQUIN] Allergy Mild ITCHY Verified 04/11/24 15:03 THROAT, RASH metronidazole [From FLAGYL] Allergy Mild ITCHY Verified 04/11/24 15:03 THROAT, RASH moxifloxacin [From AVELOX] Allergy Mild ITCHY Verified 04/11/24 15:03 THROAT, RASH Penicillins [PENICILLINS] Allergy Mild ITCHY Verified 04/11/24 15:03 THROAT, RASH shrimp [SHRIMP] Allergy Mild ITCHY Verified 04/11/24 15:03 THROAT, RASH Sulfa (Sulfonamide Allergy Mild ITCHY Verified 04/11/24 15:03 Antibiotics) THROAT, [SULFA (SULFONAMIDE RASH ANTIBIOTICS)] vancomycin [VANCOMYCIN] Allergy Mild ITCHY Verified 04/11/24 15:03 THROAT, RASH clindamycin AdvReac Intermediate Unknown Verified 04/11/24 15:03 Review of Systems Review of Systems: Yes all other systems are reviewed and are negative PMFSH Past Medical History Medical History (Updated 04/11/24 @ 17:02 by EMELIA Wei) COPD (chronic obstructive pulmonary disease) Open wound Warfarin anticoagulation Complex sleep apnea syndrome Chronic hypercapnic respiratory failure Leg pain Anemia Tachycardia DVT (deep venous thrombosis) Compression fracture of body of thoracic vertebra ASD (atrial septal defect) Pleuritic chest pain History of COVID-19 Chronic anticoagulation Hypothyroidism GERD (gastroesophageal reflux disease) Hyperlipidemia Hypertension Factor 5 Leiden mutation, heterozygous History of non-ST elevation myocardial infarction (NSTEMI) Hypoxia Anxiety PTSD (post-traumatic stress disorder) Hemoptysis Dyspnea Tracheobronchitis CLARA positive Diverticulitis Allergic bronchitis (HFpEF) heart failure with preserved ejection fraction Subarachnoid bleed Insomnia Anti-phospholipid antibody syndrome Hypogammaglobulinemia Chronic respiratory failure Arterial insufficiency of lower extremity Complex regional pain syndrome i of right lower limb Post herpetic neuralgia Pulmonary hypertension Pericardial effusion Pulmonary emboli Pleural effusion Radiation fibrosis of lung Pneumonitis Pulmonary nodules KANDY treated with BiPAP Lung cancer Surgical History History of colonoscopy History of lung surgery History of tonsillectomy History of hysterectomy S/P mitral valve clip implantation History of cardiac cath Family History Family History Sister No problems noted. Mother Cardiovascular disease Daughter Tachycardia Other KANDY (obstructive sleep apnea) Social History Social History Household Members: Other Housing: Jail Do you presently have visiting nurse or other home services: Yes (at home had [employer] SET UP OPERATOR that came to visit her) Unable to assess alcohol history related to: Unknown Alcohol intake: former Comment: stand by assist with ambulation Patient Tobacco Use Status: Never used Tobacco Second Hand Smoke Exposure: No Advance Directives: Yes Advance Directives on File: Yes Advance Directives Date on File: 06/15/22 Do you have a plan to hurt others: No Plan service: No Current occupational status: retired Physical Exam Vital Signs: Vital Signs: Last Vital Signs Temp 96.8 F 04/11/24 17:50 Pulse 76 04/11/24 17:50 Resp 16 04/11/24 17:50 BP 135/60 04/11/24 17:50 Pulse Ox 100 04/11/24 17:50 O2 Del Method Room Air 04/11/24 17:50 BMI result Body Mass Index 22.3 Appearance: Alert. Oriented X3. No acute distress. HEENT: normal inspection CVS: Normal heart rate and rhythm. Pulses normal. Respiratory: No respiratory distress. Wearing her home O2, speaking in complete sentences. Skin: Skin warm and dry. Normal skin color. Normal skin turgor. No rashes. Extremities: Mild hyperpigmentation of the left lower leg with some scattered ecchymosis, no swelling. Soft tissue tenderness of the posterior, distal calf. No crepitus, induration. No pitting edema. Neuro: Oriented X 3. Grossly normal, nonfocal Course Course Course Narrative: This is a Rapid Medical Examination (RME) performed by Og Berger PA-C in triage. Full HPI, ROS, assessment and treatment plan per primary provider in the Main ED. 79 yo female with history of PE on Coumadin (INR goal 1.5-2.0 due to hx bleeding) who presents to the ER for evaluation of 7/10 left calf pain. no trauma or injury. last INR 1.9. sent in to r/o DVT. no swelling or redness on exam. Plan: LE doppler Medical Decision Making Medical Decision Making MDM Narrative: 79-year-old female with a history of COPD on home oxygen, anemia, history of PE on Coumadin, HFpEF, CAD s/p NSTEMI, pulmonary HTN, KANDY on BiPAP who presents to the ER for evaluation of left calf pain that started today. No significant swelling, erythema of the calf. She has tenderness of the distal posterior calf. Neurovascularly intact distally. No shortness of breath beyond her baseline, no chest pain. Lower extremity Doppler today does not show any evidence of DVT. She has had multiple DVT studies in the last year. Stable for discharge home with continuing Coumadin, treatment for musculoskeletal pain with supportive care. Outpatient follow-up recommended. Differential Diagnosis Differential Diagnoses: The differential diagnosis associated with the presentation includes DVT, PVD, claudication, muscle strain or spasm Independent Interpretation I performed an independent interpretation of an: Ultrasound Interpretation: No appreciated DVT Radiology Impression Discussion of test interpretation with radiology: I have reviewed the radiologist's reading. Radiologist Impression: US/US venous duplex LE LT IMPRESSION: No evidence of acute deep venous thrombosis involving the left lower extremity. External Record Review External record reviewed: Outpatient record, Prior outpatient labs and Prior outpatient radiology Prescription Management I considered prescription management with: Pain Medication Chronic Conditions Patient?s care impacted by: Other (PE, COPD) Critical Care Time Critical Care Time Critical Care Time: No Discharge Plan Discharge Clinical Impression: Pain of left calf Patient Disposition: Home, Self-Care Instructions: Leg Pain (ED) Additional Instructions: Your ultrasound today was negative for DVT. Recommend Tylenol as needed for pain. You can use ice or heat to the area as needed. Gently stretch the area in the event that is muscular. Follow-up with your primary care doctor. If you develop new or worsening symptoms call 911 or come back to the ER for further evaluation. Prescriptions: No Action chlorhexidine gluconate 0.12 % mouthwash 15 ml buccal BID 14 Days Qty: 420 1RF metoprolol succinate [Toprol XL] 50 mg tablet extended release 24 hr 50 mg PO BID Qty: 120 3RF Advair HFA 230-21 mcg/actuation HFA aerosol inhaler 2 puff inhalation BID 90 Days Qty: 36 4RF prednisone 2.5 mg tablet 2.5 mg PO DAILY 90 Days Qty: 90 3RF Rx Instructions: On odd days codeine-guaifenesin 10-100 mg/5 mL liquid 10 ml PO Q4-6H PRN (Reason: cough) Qty: 473 0RF levalbuterol tartrate [Xopenex HFA] 45 mcg/actuation HFA aerosol inhaler 2 puff inhalation Q6H PRN (Reason: shortness of breath or wheezing) 90 Days Qty: 45 3RF albuterol sulfate 90 mcg/actuation HFA aerosol inhaler 2 inh inhalation Q6H PRN (Reason: shortness of breath or wheezing) 90 Days Qty: 3 3RF levothyroxine [Synthroid] 25 mcg tablet 25 mcg PO MOTUWETHFR@0600 warfarin [Jantoven] 2.5 mg Tablet 1.5 mg PO DAILY@1800 Patient Comments: Dose ranges based on INR goal of 1.5-2. levothyroxine [Synthroid] 25 mcg Tablet 50 mcg PO SUSA@0600 rosuvastatin 10 mg tablet 10 mg PO MOWEFR ferrous sulfate 325 mg (65 mg iron) Tablet 325 mg PO DAILY docusate sodium 100 mg Capsule 100 mg PO DAILY acetaminophen 325 mg Tablet 650 mg PO Q6H PRN (Reason: Pain/Fever) biotin 1 mg Tablet 3 mg PO DAILY magnesium hydroxide [Milk of Magnesia] 400 mg/5 mL Suspension 30 ml PO NEEDED PRN (Reason: Constipation, No BM in 3 days ) bisacodyl 10 mg Suppository 10 mg TN DAILY PRN (Reason: No BM x3 days MoM not effective) Enema 19-7 gram/118 mL Enema 118 ml TN NEEDED PRN (Reason: No result from MoM and Bisacodyl Supp) ondansetron 4 mg Tablet,Disintegrating 4 mg PO Q4H PRN (Reason: Nausea/Vomiting) fluticasone propionate 50 mcg/actuation spray,suspension 2 spray intranasal DAILY guaifenesin 400 mg Tablet 400 mg PO TID simethicone [Gas Relief (simethicone)] 80 mg Tablet,Chewable 80 mg PO QIDWMHS Qty: 20 0RF cefuroxime axetil 500 mg tablet 500 mg PO BID Qty: 8 0RF oxycodone 5 mg tablet 5 mg PO Q8H PRN (Reason: pain (scale score 7-10)) Qty: 10 0RF Rx Instructions: Partial Fill upon patient request. diazepam 5 mg tablet 5 mg PO BID PRN (Reason: anxiety) Qty: 14 0RF (DME) nebulizers Misc See Rx Instructions .Route Rx Instructions: As directed (DME) CPAP Machine/Device Device See Rx Instructions .Route Rx Instructions: As directed (DME) Oxygen Home Use Kit See Rx Instructions .Route Rx Instructions: As directed epinephrine 0.3 mg/0.3 mL auto-injector 0.3 mg IM USEASDIRECTD PRN (Reason: Allergic Reaction) acetylcysteine 100 mg/mL (10 %) solution 2 ml inhalation BID 30 Days Qty: 120 5RF furosemide 40 mg tablet 80 mg PO BID levocetirizine 5 mg tablet 5 mg PO DAILY 90 Days Qty: 90 3RF trazodone 50 mg tablet 100 mg PO BEDTIME Qty: 180 3RF montelukast 10 mg tablet 10 mg PO DAILY Qty: 90 3RF spironolactone 25 mg tablet 25 mg PO DAILY Qty: 90 3RF Interventions: ED Discharge Assessment Last Done: 04/11/24 17:50 Discharge Date/Time: 04/11/24 17:51 Print Language: Georgian
[2024-04-11 17:46] VITALS: BP 135/60; PULSE 76; RESP 16; TEMP 36; O2SAT 100
[2024-04-11 17:50] VITALS: BP 135/60; PULSE 76; RESP 16; TEMP 36; O2SAT 100
== END 2024-04-11 17:51 | disposition home or self-care (01) ==
PROVIDERS: Emergency Provider Emergency Medicine
DX: M79.662 Pain in left lower leg (principal); R60.0 Localized edema; Z79.899 Other long term (current) drug therapy
CPT/HCPCS: 93971; 99282; 99284

== ENCOUNTER 2024-04-23 08:21 | Outpatient (REF) | payer MEDICARE, SELFPAY ==
[2024-04-23 09:36] LABS: Cholesterol 166 mg/dL (<200); HDL Cholesterol 62 mg/dL (>40); LDL Cholesterol Calculated 92 mg/dL (<100); Triglycerides 62 mg/dL (<150)
[2024-04-23 09:45] LABS: Alanine Aminotransferase 18 U/L (0-31); Alkaline Phosphatase 70 U/L (39-117); Anion Gap 10 (12-20); Aspartate Amino Transferase 23 U/L (5-31); Bilirubin Total 0.5 mg/dL (0.0-1.0); Blood Urea Nitrogen 22 mg/dL (9-16); Calcium 10.9 mg/dL (8.4-10.2); Carbon Dioxide 37 mmol/L (22-29); Chloride 97 mmol/L (96-108); Estimated Glomerular Filt Rate > 60; Glucose Random 99 mg/dL (60-115); Potassium 3.2 mmol/L (3.3-5.1); Sodium 141 mmol/L (135-145)
[2024-04-23 10:03] LABS: Vitamin D 25-OH Total 23.6 ng/mL (>30)
== END 2024-04-23 08:22 | disposition home or self-care (01) ==
LOC: HO.LAB 08:21
PROVIDERS: Absent Provider Internal Medicine Cardiovascular Disease; PCP Internal Medicine; Referring Provider Hospitalist; Visit Provider Internal Medicine Endocrinology, Diabetes & Metabolism
DX: E03.9 Hypothyroidism, unspecified (principal); E27.40 Unspecified adrenocortical insufficiency; E21.3 Hyperparathyroidism, unspecified; I25.10 Atherosclerotic heart disease of native coronary artery without angina pectoris
CPT/HCPCS: 36415; 80053; 80061; 82306; 82533; 84443

== ENCOUNTER 2024-05-09 09:32 | Outpatient (REF) | payer MEDICARE, SELFPAY ==
[2024-05-09 10:56] LABS: MANUAL DIFF FLAG NO
[2024-05-09 11:16] LABS: Basophils Absolute Auto 0.1 X10*3/uL (0.0-0.2); Basophils Percent Auto 0.9 % (0-2); Eosinophils Absolute Auto 0.1 X10*3/uL (0.0-0.4); Eosinophils Percent Auto 1.1 % (0-4); Hematocrit 37.2 % (37.0-47.0); Hemoglobin 11.9 g/dl (12.0-16.0); Imm Gran Abs Auto 0.06 X10*3/uL (0.00-0.03); Imm Gran Pct Auto 0.7 % (0.0-0.4); Lymphocytes Absolute Auto 0.8 X10*3/uL (1.2-4.9); Lymphocytes Percent Auto 8.7 % (20-40); Mean Corpuscular Hemoglobin 31.9 pg (27.0-33.0); Mean Corpuscular Volume 99.7 fL (80.0-98.0); Mean Platelet Volume 10.9 fL (9.4-12.3); Monocytes Absolute Auto 0.9 X10*3/uL (0.1-1.2); Neutrophils Percent Auto 78.6 % (45-73); Platelet Count 228 X10*3/uL (160-400); Red Blood Count 3.73 X10*6/uL (4.20-5.50); Red Cell Distribution Width 14.3 % (11.0-16.0); White Blood Count 8.9 X10*3/uL (4.8-10.8)
[2024-05-09 11:26] LABS: D Dimer High Sensitivity 344 NG/ML
[2024-05-09 11:58] LABS: Erythrocyte Sedimentation Rate 45 MM/HR (0-20)
[2024-05-09 11:59] LABS: Alanine Aminotransferase 23 U/L (0-31); Albumin Level 3.9 g/dL (3.5-5.0); Alkaline Phosphatase 74 U/L (39-117); Anion Gap 9 (12-20); Aspartate Amino Transferase 32 U/L (5-31); Bilirubin Direct 0.2 mg/dL (0.0-0.5); Bilirubin Total 0.5 mg/dL (0.0-1.0); Blood Urea Nitrogen 28 mg/dL (9-16); Calcium 11.1 mg/dL (8.4-10.2); Carbon Dioxide 36 mmol/L (22-29); Chloride 99 mmol/L (96-108); Estimated Glomerular Filt Rate 56; Glucose Random 124 mg/dL (60-115); Phosphorus 2.2 mg/dL (2.7-4.5); Potassium 4.3 mmol/L (3.3-5.1); Sodium 140 mmol/L (135-145); Total Protein 7.2 g/dL (6.5-8.0)
[2024-05-09 12:31] LABS: Folate 10.3 ng/mL (> or = 4.0); Vitamin B12 662 pg/mL (200-900)
== END 2024-05-09 09:33 | disposition home or self-care (01) ==
LOC: HO.LAB 09:32
PROVIDERS: Nurse Practitioner Family; PCP Internal Medicine; Visit Provider Hospitalist
DX: J41.0 Simple chronic bronchitis (principal); I25.10 Atherosclerotic heart disease of native coronary artery without angina pectoris; J96.12 Chronic respiratory failure with hypercapnia; J96.11 Chronic respiratory failure with hypoxia; G47.31 Primary central sleep apnea; Z99.89 Dependence on other enabling machines and devices; I27.20 Pulmonary hypertension, unspecified; R91.8 Other nonspecific abnormal finding of lung field; J70.1 Chronic and other pulmonary manifestations due to radiation; I50.32 Chronic diastolic (congestive) heart failure; C34.12 Malignant neoplasm of upper lobe, left bronchus or lung; J90 Pleural effusion, not elsewhere classified; Z99.81 Dependence on supplemental oxygen
CPT/HCPCS: 36415; 80048; 80076; 82607; 82746; 84100; 85025; 85379; 85652; 99212

== ENCOUNTER 2024-05-09 09:32 | Outpatient (AMB) | payer MEDICARE, SELFPAY ==
--- NOTE | 2024-05-09 09:36 | A.OFFVIS_ITS ---
Vital Signs 05/09/24 09:37 Weight 129 lb BP 116/52 L Blood Pressure Location Rt brachial Position Sitting Pulse 97 Pulse Source Pulse Oximeter Pulse Oximetry (%) 99 Oxygen Delivery Method Nasal Cannula Oxygen Flow Rate 2 Intake Visit Reasons: Dyspnea Allergies morphine Allergy (Severe, Verified 05/09/24 09:43) Itching avocado [AVOCADO] Allergy (Mild, Verified 05/09/24 09:43) ITCHY THROAT, RASH azithromycin [AZITHROMYCIN] Allergy (Mild, Verified 05/09/24 09:43) ITCHY THROAT, RASH barium iodide [BARIUM IODIDE] Allergy (Mild, Verified 05/09/24 09:43) ITCHY THROAT, RASH barium sulfate Allergy (Mild, Verified 05/09/24 09:43) Itch bee pollen [BEE STINGS] Allergy (Mild, Verified 05/09/24 09:43) ITCHY THROAT, RASH ciprofloxacin [From CIPRO] Allergy (Mild, Verified 05/09/24 09:43) ITCHY THROAT, RASH clarithromycin [From BIAXIN] Allergy (Mild, Verified 05/09/24 09:43) ITCHY THROAT, RASH diatrizoate meglumine [From GASTROGRAFIN] Allergy (Mild, Verified 05/09/24 09:43) ITCHY THROAT, RASH diatrizoate sodium [From GASTROGRAFIN] Allergy (Mild, Verified 05/09/24 09:43) ITCHY THROAT, RASH diclofenac [From VOLTAREN] Allergy (Mild, Verified 05/09/24 09:43) ITCHY THROAT, RASH erythromycin base [ERYTHROMYCIN BASE] Allergy (Mild, Verified 05/09/24 09:43) ITCHY THROAT, RASH gentamicin [GENTAMICIN] Allergy (Mild, Verified 05/09/24 09:43) ITCHY THROAT, RASH Iodinated Contrast Media [IVP DYE] Allergy (Mild, Verified 05/09/24 09:43) ITCHY THROAT, RASH levofloxacin [From LEVAQUIN] Allergy (Mild, Verified 05/09/24 09:43) ITCHY THROAT, RASH metronidazole [From FLAGYL] Allergy (Mild, Verified 05/09/24 09:43) ITCHY THROAT, RASH moxifloxacin [From AVELOX] Allergy (Mild, Verified 05/09/24 09:43) ITCHY THROAT, RASH Penicillins [PENICILLINS] Allergy (Mild, Verified 05/09/24 09:43) ITCHY THROAT, RASH shrimp [SHRIMP] Allergy (Mild, Verified 05/09/24 09:43) ITCHY THROAT, RASH Sulfa (Sulfonamide Antibiotics) [SULFA (SULFONAMIDE ANTIBIOTICS)] Allergy (Mild, Verified 05/09/24 09:43) ITCHY THROAT, RASH vancomycin [VANCOMYCIN] Allergy (Mild, Verified 05/09/24 09:43) ITCHY THROAT, RASH clindamycin Adverse Reaction (Intermediate, Verified 05/09/24 09:43) Unknown Medication List - Last Reconciled 05/09/24 by Norma Newman LPN acetaminophen 650 mg PO Q6H PRN acetylcysteine 2 mL inhalation BID 30 days Advair HFA 230-21 mcg/actuation (fluticasone propion-salmeterol) 2 puffs inhalation BID 90 days NS albuterol sulfate 90 mcg/actuation 2 inhalations inhalation Q6H PRN 90 days biotin 3 mg PO DAILY bisacodyl 10 mg LA DAILY PRN cefuroxime axetil 500 mg PO BID chlorhexidine gluconate 0.12% 15 mL buccal BID 14 days codeine-guaifenesin 10-100 mg/5 mL 10 mL PO Q4-6H PRN CPAP (CPAP Machine/Device) As directed diazepam 5 mg PO BID PRN docusate sodium 100 mg PO DAILY epinephrine 0.3 mg IM USEASDIRECTD PRN ferrous sulfate 325 mg PO DAILY fluticasone propionate 50 mcg/actuation 2 sprays intranasal DAILY furosemide 80 mg (2 x 40 mg) PO BID guaifenesin 400 mg PO TID levalbuterol tartrate 45 mcg/actuation (Xopenex HFA) 2 puffs inhalation Q6H PRN 90 days levocetirizine 5 mg PO DAILY 90 days levothyroxine (Synthroid) 25 mcg PO MOTUWETHFR@0600 levothyroxine (Synthroid) 50 mcg PO SUSA@0600 magnesium hydroxide (Milk of Magnesia) 30 mL PO NEEDED PRN metoprolol succinate ER (Toprol XL) 50 mg PO BID montelukast 10 mg PO DAILY nebulizers As directed ondansetron 4 mg PO Q4H PRN oxycodone 5 mg PO Q8H PRN Oxygen Home Use As directed potassium chloride 40 mEq PO DAILY prednisone 2.5 mg PO DAILY 90 days rosuvastatin 10 mg PO MOWEFR simethicone (Gas Relief (simethicone)) 80 mg PO QIDWMHS sodium phosphates 19-7 gram/118 mL (Enema) 118 mL LA NEEDED PRN trazodone 100 mg (2 x 50 mg) PO BEDTIME warfarin (Jantoven) 1.5 mg PO DAILY@1800 HPI Comments Details: The patient is a 79 y/o woman with a complicated history which includes: COPD, KANDY, pulmonary HTN, history pulmonary emboli on chronic anticoagulation, lung CA Stage IIIA s/o neoadjuvant chemoradiation and Left upper lobe lobectomy. She did have a CT scan today that I personally reviewed. Has not been personally read by the radiologist. Based on my reading she has some pulmonary nodules some that are new 4 mm in the right major fissure area. Other nodules are stable. Other post operative and pulmonary fibrotic changes stable. The patient should get a CT scan in 6 months. Also to note, she did not tolerate the Incruse nor budesonide. Will consider Daliresp. She was admitted to [facility] with diverticulitis. She was placed on IV antibiotics but she left against medical advice because she did not like the antibiotic options. In the meantime she was having some issues with coughing up some blood. She is also concerned because on her visit to [facility] she did have a CT scan of the chest and she was told that she had significant scarring of her lungs in addition to lung volume loss. I have not looked at the CT scan back in reassured her that she has had this radiation fibrosis for long time and volume loss due to the scarring was present before. We did review her perfusion scan demonstrating no defects to suggest any blood clots. Interestingly in the quantitative study the patient did have 81% of the blood flow going to her right lung and 18% going to the left. This is likely due to her previous surgery and also radiation changes. 11/09/2023 the patient is here for a pulmonary follow-up visit. During the last visit the patient was having chest discomfort dizziness. We did check a D-dimer that was significantly elevated. The patient did go to [facility] which she did have a CTA. The patient did not have any evidence of any blood clots. I did personally review the CTA demonstrating stable postoperative changes and fibrotic changes. No significant new nodules noted. Again no thromboembolic disease. The patient was discharged. She has been doing okay she has been using her oxygen. She continued on the diuretics. She has episodes of palpitations with heart rate she states goes up to 150 beats per m inute. During those episodes she does drop her saturations down to the 80s. Usually the symptoms subside after several minutes. The patient in the meantime has been complaining of lower extremity pain especially behind her knee on her left lower extremity. We did again recheck his D-dimer continues to be elevated so therefore will do lower extremity Dopplers. The patient is on Coumadin and her last INR was documented to be 1.5 which is her therapeutic window specially since she has platelet dysfunction. She continues respiratory therapy. She did have an episode of palpitations when using the nebulizer so I did recommend she can only use half a treatment if she really needs it. Otherwise she should try to refrain from its specially if she has had more cardiac instability and irritability. We also checked her electrolytes because of that as well. Her potassium was 3.1. She had not taken today's dose of potassium so therefore I did emphasize importance of taking her potassium oral supplementation to minimize cardiac arrhythmias. 12/15/2023 the patient is here for pulmonary follow-up visit. Still having difficulties with her lower extremity edema. I did reassure her that her weight has been stable in that is more important. She has already a dose of diuretics. The patient has been having some bruising primarily because of the compression stockings. This is typical specially with her anticoagulation and platelet dysfunction. The patient also has a cough chest congestion. She has chronic lung disease and COPD with chronic bronchitis explained to her that she will always make mucus. She responds well to the oxygen she is using more regularly with good response. The patient has been using her BiPAP. BiPAP therapy has been affecting beneficial although her AHI now is elevated up to 15. She is having some central apneas. I did check a blood gas in her pCO2 is 59 mm Hg. At this point she is feeling BiPAP. The patient has hypercarbic respiratory failure due to her COPD. This carries a poor prognosis and high risk for hospitalizations. Therefore we are going to switch over to a noninvasive ventilator, astral. This provide her with better gas exchange improved prognosis and decrease hospitalizations. I did talk to the [employer] that supplies with the BiPAP to switch over to the astral at this time. 12/26/2023 the patient is here for sick visit. Since her last visit she did have a blood gas demonstrating an elevated CO2 of 59 mm Hg. The patient has hypercarbic respiratory failure due to her COPD. In addition to that she does have significant sleep apnea. She has been on BiPAP and she has had multiple sleep studies demonstrating the BiPAP settings are appropriate for her. Although, the last downloaded demonstrated that her AHI significantly increased up to about 15 events per hour. Some component of central apneas noted suggesting a complex sleep apnea picture. Therefore, based on the fact that she has hypercarbic respiratory failure we did set up with an astral. She has tried over the weekend she states that she developed significant chest pain shortness of breath she can not tolerate it. She does want keep using it. She went back to him BiPAP. In view of her worsening AHI will go ahead and refer her to a sleep specialist in addition to that will request an in-lab titration study to see if we can adequately titrate her on a BiPAP or IVAP. In the meantime she does continue with her ongoing shortness of breath cough mucus plugging. She does have some wheezing on examination. She needs to make sure to use her inhalers and she can also use her nebulizer as needed. She is already on prednisone 2.5 mg twice a day were not going to increase this at this time. She does have poor sleep quality. She is also having issues with a times being tearful and somewhat depressed. Also affecting her sleep-wake cycle. She is currently on trazodone with partial improvement. She is trying to get off the benzodiazepines because she has concerned the CO2 retention. I believe this is reasonable. 01/26/2024 the patient is here for a pulmonary follow-up visit. She was recently hospital for a injury to her lower extremity. Apparently she was her by a shopping cart were hit her leg and caused her to have a significant hematoma. It did requiring debridement at the bedside. She went to a rehab and then she came back and now she has had a different rehab. Now getting wound care. In the meantime she still having difficulties with breathing. She has been using her oxygen at 2 L. when she does not use her oxygen she tends to go to tachyarrhythmias so therefore did recommend she continue using her oxygen all times. The patient also has been using the BiPAP. She did not tolerate the AVAP. I did download the BiPAP and her AHI continues to be elevated still. Therefore increased her EPAP from 8-10. Now she has a settings of BiPAP of 16/10. She will call next week to let me know how she is doing a can download the machine is if we can increase it further. Will slowly increase it to get to the effective therapeutic pressures. She has other complaints including dry mouth nausea likely from her new medications specially pain medications and she did complete antibiotics for her extremity wound. She continues on Coumadin. While in the hospital she did have a V/Q scan which was indeterminate but no evidence of any PE that could be appreciated. She continues with respiratory therapy with good effect. Will follow-up the patient hopefully in 3-4 weeks and hopefully she is home by then. 02/15/2024 the patient is here for pulmonary follow-up visit. She is still the rehabilitation. She is recovering from the right lower extremity wound. She is having more pain and swelling. She needs to be evaluated for the wound. We did call vascular surgery and they recommended that she follow-up with wound care. Looks like wound care already saw her in the hospital. Will try to facilitate her care so therefore put a referral in to make sure that she gets seen as well as possible in view of the significant mood that she has. From a respiratory status the patient is doing okay. She is using her oxygen with good effect. The patient also has been using the BiPAP at nighttime. The BiPAP therapy continues to be affecting beneficial. She does complaint of chest pain and pressure. Is substernal in nature. Seems to be ongoing. No pleuritic component. Will have her get a chest x-ray to make sure. But since she is still at rehab she can have 1 done while she is there. In the meantime we did do an EKG demonstrating the conduction abnormalities. Appear to be stable. She does have increasing anxiety. I did recommend she can take Anxiolytic medicine during the day and also as needed. 03/21/2024 the patient is here for pulmonary follow-up visit. She has multiple complaints. She is entirely seems any physicians. She is still dealing with the wound getting plenty of wound care 4. Still getting debrided. In addition to that she has had a productive cough. The phlegm is now clear but thick difficult to expectorate. Sometimes feel like it is dripping for nasal passages down like a postnasal drip. The patient is currently on cefpodoxime. She is finishing a course. We did try to get sputum in the office but she was not able to do so. I did give her a cup in order for her to be doing her own time. We will be able to look for both Gram stain culture and also AFB. The patient also had a chest x-ray which I personally reviewed and also compared to her previous x-rays. It appears that she has worsening left-sided pleural effusion. Hard to know that is long as very affected on that side there is any active disease otherwise. She has not had a CT scan since October. In view of the worsening chest x-ray in the ongoing symptoms will go ahead and request a CT scan time. The patient also could try some Mucomyst. I will send some to the pharmacy to s jong if we can get it. She understands that is hard to get. When she gets she can use it twice a day for CPT to see if this helps clear the secretions that gets that within her airways. In addition to that the patient has been using the BiPAP. The BiPAP therapy has been affecting beneficial. She does use it for more than 4 hours a night. However, she does have a component of hypercarbia and she would do better with the noninvasive ventilator. Currently she is set up for sleep study at [facility] coming up. Hopefully they can do a split study and try titrate her figure out what her best form of therapy it is. At some point though if she continues on the BiPAP will need to replace it because his older than 5 years. 05/09/2024 the patient is here for a pulmonary follow-up visit. Overall she is doing well from a respiratory status. She recently did have a CT scan of the chest that at [facility]. I did personally reviewed. Appears to be stable. She does have the chronic effusion in the parenchymal disease. This is all stable. She does have a small compression fracture though. Has significant osteopenia. She did have blood work with her targeting acquisition officer recently. Her antiphospholipid antibodies and anticardiolipin antibodies continue antiphospholipid antibody elevated. Her homocystine that was also elevated. She is going to start folic acid. She is concerned because her D-dimer was significantly elevated. Although she did have trauma to the legs. She had lower extremity Dopplers which were negative for any clots which is reassuring. Previous he Q scans have been reassuring. Will go ahead and repeat her blood test to see make sure that the D-dimer is coming down. If the D-dimer continues to be elevated then will do additional testing for potential occult clots. She continues on the Coumadin with a goal level 1.5-2. I do believe that she should stay on it based on the fact that she has significant symptoms and coming off the medicine may result in more security of the results specially since the Coumadin has been working for her chronic thromboembolic disease. From the wound standpoint the patient is doing better from the wound healing on her right lower extremity although she recently had another the trauma to the left. She is also dealing with a boil or a growth on the perineal area. She is going to be seeing bookkeeping manager for that. [facility] Medical History (Updated 04/12/24 @ 00:00 by Anabella Raza) COPD (chronic obstructive pulmonary disease) Open wound Warfarin anticoagulation Complex sleep apnea syndrome Chronic hypercapnic respiratory failure Leg pain Anemia Tachycardia DVT (deep venous thrombosis) Compression fracture of body of thoracic vertebra ASD (atrial septal defect) Pleuritic chest pain History of COVID-19 Chronic anticoagulation Hypothyroidism GERD (gastroesophageal reflux disease) Hyperlipidemia Hypertension Factor 5 Leiden mutation, heterozygous History of non-ST elevation myocardial infarction (NSTEMI) Hypoxia Anxiety PTSD (post-traumatic stress disorder) Hemoptysis Dyspnea Tracheobronchitis CLARA positive Diverticulitis Allergic bronchitis (HFpEF) heart failure with preserved ejection fraction Subarachnoid bleed Insomnia Anti-phospholipid antibody syndrome Hypogammaglobulinemia Chronic respiratory failure Arterial insufficiency of lower extremity Complex regional pain syndrome i of right lower limb Post herpetic neuralgia Pulmonary hypertension Pericardial effusion Pulmonary emboli Pleural effusion Radiation fibrosis of lung Pneumonitis Pulmonary nodules KANDY treated with BiPAP Lung cancer Surgical History History of colonoscopy History of lung surgery History of tonsillectomy History of hysterectomy S/P mitral valve clip implantation History of cardiac cath Family History Sister No problems noted. Mother Cardiovascular disease Daughter Tachycardia Other KANDY (obstructive sleep apnea) Social History Household Members: Other Housing: Snf Do you presently have visiting nurse or other home services: Yes (at home had WIRE COINER that came to visit her) Unable to assess alcohol history related to: Unknown Alcohol intake: former Comment: stand by assist with ambulation Patient Tobacco Use Status: Never used Tobacco Second Hand Smoke Exposure: No Advance Directives Date on File: 06/15/22 service: No Current occupational status: retired Review of Systems Const Denies chills, Reports daytime sleepiness, Denies fever(s), Denies frequent falls, Denies weakness, Denies weight gain and Denies weight loss Eyes Denies change in vision ENT Denies change in voice and Denies dizziness Card Denies chest pain, Denies leg edema, Denies lightheadedness, Denies palpitations, Denies dyspnea, Reports dyspnea on exertion, Denies orthopnea and Denies other (loss of consciousness) Resp Reports cough, Denies pain on inspiration, Denies pain with cough, Denies dyspnea and Reports dyspnea on exertion GI Denies hematochezia and Denies change in stool character Musc Reports as per HPI and Reports muscle weakness Skin/Breast Reports change in pigmentation, Reports skin swelling and Reports unusual bruising Neuro Denies dizziness, Denies frequent falls and Denies weakness Psych Reports depression Endo Denies palpitations Physical Exam Vital Signs: Last Vital Signs Pulse 97 05/09/24 09:37 BP 116/52 L 05/09/24 09:37 Pulse Ox 99 05/09/24 09:37 Oxygen Delivery Method Nasal Cannula 05/09/24 09:37 Oxygen Flow Rate 2 05/09/24 09:37 Last Vital Signs Temp 97.7 F 06/20/22 08:00 Pulse 90 06/20/22 08:00 Resp 16 06/20/22 08:00 BP 137/60 06/20/22 08:00 Pulse Ox 93 06/20/22 08:00 O2 Del Method 06/20/22 08:00 O2 Flow Rate 2 06/20/22 08:00 FiO2 45 06/14/22 11:07 BMI result Body Mass Index 23.0 Const General: cooperative, comfortable, alert and awake Orientation/consciousness: patient oriented x3 HEENT Head: Yes atraumatic Eyes General: appearance normal, both eyes and all related structures Neck Neck: Yes trachea midline, Yes supple and Yes no JVD Chest Chest palpation & inspection: tenderness rib (right side) Resp Effort & Inspection: normal respiratory effort, no cough and No prolonged expiratory phase Auscultation: no rales, no rhonchi, wheezes and diminished lung sounds Cardio Rate: regular rate Rhythm: regular rhythm Heart sounds: S1 normal heart sound present, S2 normal heart sound present and Abnormal heart opening sounds loud S2 GI Auscultation: normal bowel sounds Skin General skin exam: purpura and scars Neuro General: patient oriented x3 and no focal motor deficits Extrem Right lower extremity: edema Assessment & Plan Assessment & Plan (1) Chronic hypercapnic respiratory failure: Code(s): J96.12 - Chronic respiratory failure with hypercapnia Category: Medical (2) Complex sleep apnea syndrome: Code(s): G47.31 - Primary central sleep apnea Category: Medical (3) Pulmonary hypertension: Comment: severe based on RHC, moderate based on recent echo Code(s): I27.20 - Pulmonary hypertension, unspecified Category: Medical (4) Pulmonary nodules: Code(s): R91.8 - Other nonspecific abnormal finding of lung field Category: Medical (5) Chronic respiratory failure: Code(s): J96.10 - Chronic respiratory failure, unspecified whether with hypoxia or hypercapnia Category: Medical Qualifiers: Respiratory failure complication: hypoxia and hypercapnia Qualified Code(s): J96.11 - Chronic respiratory failure with hypoxia; J96.12 - Chronic respiratory failure with hypercapnia (6) KANDY treated with BiPAP: Code(s): G47.33 - Obstructive sleep apnea (adult) (pediatric) Category: Medical (7) Radiation fibrosis of lung: Code(s): J70.1 - Chronic and other pulmonary manifestations due to radiation Category: Medical (8) COPD (chronic obstructive pulmonary disease): Code(s): J44.9 - Chronic obstructive pulmonary disease, unspecified Category: Medical Qualifiers: COPD type: chronic bronchitis Chronic bronchitis type: simple Qualified Code(s): J41.0 - Simple chronic bronchitis (9) Diastolic CHF: Code(s): I50.30 - Unspecified diastolic (congestive) heart failure Category: Medical Qualifiers: Heart failure chronicity: chronic Qualified Code(s): I50.32 - Chronic diastolic (congestive) heart failure (10) (HFpEF) heart failure with preserved ejection fraction: Code(s): I50.30 - Unspecified diastolic (congestive) heart failure Category: Medical Qualifiers: Heart failure chronicity: chronic Qualified Code(s): I50.32 - Chronic diastolic (congestive) heart failure (11) Lung cancer: Code(s): C34.90 - Malignant neoplasm of unspecified part of unspecified bronchus or lung Category: Medical Qualifiers: Laterality: left Lung location: upper lobe of lung Qualified Code(s): C34.12 - Malignant neoplasm of upper lobe, left bronchus or lung (12) Pleural effusion: Code(s): J90 - Pleural effusion, not elsewhere classified Category: Medical Plan prednisone 2.5 mg QOD Ambien for sleep continue Advair ASHA as needed continue ASHA (xopenex) as needed ?mucomyst via neb BID CPT with acapella valve fluticasone Oxygen 2L/pulse with activity and sleep. POC Inogen G5 duiresis as tolerated bloodwork today BIPAP 16/ to 16/8 to 16 wound care f/u, better CT chest stable 03/2024 at [facility] [place] F/U 6-8 weeks Orders: Orders Phosphorus Today J41.0 - Simple chronic bronchitis Vitamin B12 and Folate Today J41.0 - Simple chronic bronchitis Coding Level of Care Code Est Pt Level 4 (04647) Complex EM visit Add On G2211 Diagnoses Chronic hypercapnic respiratory failure J96.12 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 Pulmonary hypertension I27.20 Pulmonary nodules R91.8 Chronic respiratory failure with hypoxia and hypercapnia J96.11; J96.12 Respiratory failure complication: hypoxia and hypercapnia KANDY treated with BiPAP G47.33 Radiation fibrosis of lung 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 Chronic heart failure with preserved ejection fraction I50.32 Heart failure chronicity: chronic Malignant neoplasm of upper lobe of left lung C34.12 Laterality: left Lung location: upper lobe of lung Pleural effusion J90 Time Spent (min) 20
[2024-05-09 09:37] VITALS: BP 116/52; PULSE 97; O2SAT 99
== END 2024-05-09 10:20 | disposition home or self-care (01) ==
LOC: HO.HPS 09:33
PROVIDERS: PCP Internal Medicine; Visit Provider Hospitalist
DX: J96.12 Chronic respiratory failure with hypercapnia (principal); G47.31 Primary central sleep apnea; I27.20 Pulmonary hypertension, unspecified; R91.8 Other nonspecific abnormal finding of lung field; J96.11 Chronic respiratory failure with hypoxia; G47.33 Obstructive sleep apnea (adult) (pediatric); J70.1 Chronic and other pulmonary manifestations due to radiation; J41.0 Simple chronic bronchitis; I50.32 Chronic diastolic (congestive) heart failure; C34.12 Malignant neoplasm of upper lobe, left bronchus or lung; J90 Pleural effusion, not elsewhere classified
CPT/HCPCS: 99214; G2211

== ENCOUNTER 2024-05-15 15:45 | Outpatient (RCR) | payer MEDICARE, SELFPAY | END 2024-05-31 13:34 | disposition home or self-care (01) | LOC: HO.WCC 15:45 | PROVIDERS: PCP Internal Medicine; Visit Provider Surgery | DX: I87.311 Chronic venous hypertension (idiopathic) with ulcer of right lower extremity (principal); L97.812 Non-pressure chronic ulcer of other part of right lower leg with fat layer exposed; Z79.52 Long term (current) use of systemic steroids; Z79.01 Long term (current) use of anticoagulants; Z79.899 Other long term (current) drug therapy | CPT/HCPCS: 11042; 11045; 99212 ==

== ENCOUNTER 2024-05-29 15:39 | Outpatient (REF) | payer MEDICARE, SELFPAY ==
--- NOTE | ~2024-05-29 | XR_ITS ---
EXAMINATION: XR CHEST CLINICAL INFORMATION: I50.32 - Chronic diastolic (congestive) heart failure COMPARISON: January 16, 2024. TECHNIQUE: PA view of the chest was obtained. FINDINGS: There has been no significant radiographic change compared with January 16, 2024. Surgical clips project over the left hilar region. A metallic clip projects over the mid mediastinum as well. Shift of the mediastinum toward the left suggests volume loss on the left. A linear density at the left midlung suggests fibrotic streak and/or atelectasis. Left basilar hazy density suggests pleural fluid, pleural thickening, atelectasis, infiltrate, and/or mass. Right basilar linear densities suggest fibrotic streaks and/or atelectasis. The right lung otherwise appears grossly clear. The cardiac silhouette is suboptimally evaluated. Aorta is atherosclerotic. Mild degenerative changes of the spine. XR/XR chest 1V IMPRESSION: Findings as above. Electronically signed by: Eben Mueller MD 05/29/2024 04:58 PM [facility]MEL
[2024-05-29 17:04] LABS: Anion Gap 11 (12-20); Blood Urea Nitrogen 21 mg/dL (9-16); Calcium 11.2 mg/dL (8.4-10.2); Carbon Dioxide 35 mmol/L (22-29); Chloride 97 mmol/L (96-108); Estimated Glomerular Filt Rate > 60; Glucose Random 99 mg/dL (60-115); Potassium 3.8 mmol/L (3.3-5.1); Sodium 139 mmol/L (135-145)
== END 2024-05-29 15:40 | disposition home or self-care (01) ==
LOC: HO.XRAY 15:39
PROVIDERS: Absent Provider Hospitalist; PCP Internal Medicine; Visit Provider Internal Medicine Cardiovascular Disease
DX: I50.32 Chronic diastolic (congestive) heart failure (principal)
CPT/HCPCS: 36415; 71045; 80048

== ENCOUNTER 2024-06-24 14:08 | Outpatient (AMB) | payer MEDICARE, SELFPAY ==
[2024-06-24 14:24] VITALS: BP 100/60; PULSE 79; BMI 22.6
--- NOTE | 2024-06-24 14:24 | MHC.OFFVIS ---
Vital Signs 06/24/24 14:24 Height 5 ft 3 in Weight 127 lb 13.89 oz BMI 22.6 BP 100/60 Blood Pressure Location Lt brachial Position Sitting Pulse 79 Pulse Source Pulse Oximeter Intake Visit Reasons: 3 mth f/up Intake Note: 3 mth f/up/ tooth extraction 07/17 [employer] Required: No Accompanied by: Self / Same As Patient Allergies morphine Allergy (Severe, Verified 05/09/24 09:43) Itching avocado [AVOCADO] Allergy (Mild, Verified 05/09/24 09:43) ITCHY THROAT, RASH azithromycin [AZITHROMYCIN] Allergy (Mild, Verified 05/09/24 09:43) ITCHY THROAT, RASH barium iodide [BARIUM IODIDE] Allergy (Mild, Verified 05/09/24 09:43) ITCHY THROAT, RASH barium sulfate Allergy (Mild, Verified 05/09/24 09:43) Itch bee pollen [BEE STINGS] Allergy (Mild, Verified 05/09/24 09:43) ITCHY THROAT, RASH ciprofloxacin [From CIPRO] Allergy (Mild, Verified 05/09/24 09:43) ITCHY THROAT, RASH clarithromycin [From BIAXIN] Allergy (Mild, Verified 05/09/24 09:43) ITCHY THROAT, RASH diatrizoate meglumine [From GASTROGRAFIN] Allergy (Mild, Verified 05/09/24 09:43) ITCHY THROAT, RASH diatrizoate sodium [From GASTROGRAFIN] Allergy (Mild, Verified 05/09/24 09:43) ITCHY THROAT, RASH diclofenac [From VOLTAREN] Allergy (Mild, Verified 05/09/24 09:43) ITCHY THROAT, RASH erythromycin base [ERYTHROMYCIN BASE] Allergy (Mild, Verified 05/09/24 09:43) ITCHY THROAT, RASH gentamicin [GENTAMICIN] Allergy (Mild, Verified 05/09/24 09:43) ITCHY THROAT, RASH Iodinated Contrast Media [IVP DYE] Allergy (Mild, Verified 05/09/24 09:43) ITCHY THROAT, RASH levofloxacin [From LEVAQUIN] Allergy (Mild, Verified 05/09/24 09:43) ITCHY THROAT, RASH metronidazole [From FLAGYL] Allergy (Mild, Verified 05/09/24 09:43) ITCHY THROAT, RASH moxifloxacin [From AVELOX] Allergy (Mild, Verified 05/09/24 09:43) ITCHY THROAT, RASH Penicillins [PENICILLINS] Allergy (Mild, Verified 05/09/24 09:43) ITCHY THROAT, RASH shrimp [SHRIMP] Allergy (Mild, Verified 05/09/24 09:43) ITCHY THROAT, RASH Sulfa (Sulfonamide Antibiotics) [SULFA (SULFONAMIDE ANTIBIOTICS)] Allergy (Mild, Verified 05/09/24 09:43) ITCHY THROAT, RASH vancomycin [VANCOMYCIN] Allergy (Mild, Verified 05/09/24 09:43) ITCHY THROAT, RASH clindamycin Adverse Reaction (Intermediate, Verified 05/09/24 09:43) Unknown Medication List - Last Reconciled 06/24/24 by Luis Eduardo Cadet MD acetaminophen 650 mg PO Q6H PRN acetylcysteine 2 mL inhalation BID 30 days Advair HFA 230-21 mcg/actuation (fluticasone propion-salmeterol) 2 puffs inhalation BID 90 days NS albuterol sulfate 90 mcg/actuation 2 inhalations inhalation Q6H PRN 90 days biotin 3 mg PO DAILY bisacodyl 10 mg VA DAILY PRN cefuroxime axetil 500 mg PO BID chlorhexidine gluconate 0.12% 15 mL buccal BID 14 days codeine-guaifenesin 10-100 mg/5 mL 10 mL PO Q4-6H PRN CPAP (CPAP Machine/Device) As directed diazepam 5 mg PO BID PRN docusate sodium 100 mg PO DAILY epinephrine 0.3 mg IM USEASDIRECTD PRN ferrous sulfate 325 mg PO DAILY fluticasone propionate 50 mcg/actuation 2 sprays intranasal DAILY furosemide 80 mg (2 x 40 mg) PO BID guaifenesin 400 mg PO TID levalbuterol tartrate 45 mcg/actuation (Xopenex HFA) 2 puffs inhalation Q6H PRN 90 days levocetirizine 5 mg PO DAILY 90 days levothyroxine (Synthroid) 25 mcg PO MOTUWETHFR@0600 levothyroxine (Synthroid) 50 mcg PO SUSA@0600 magnesium hydroxide (Milk of Magnesia) 30 mL PO NEEDED PRN metoprolol succinate ER (Toprol XL) 50 mg PO BID montelukast 10 mg PO DAILY nebulizers As directed ondansetron 4 mg PO Q4H PRN oxycodone 5 mg PO Q8H PRN Oxygen Home Use As directed potassium chloride 40 mEq PO DAILY prednisone 2.5 mg PO DAILY 90 days rosuvastatin 10 mg PO MOWEFR simethicone (Gas Relief (simethicone)) 80 mg PO QIDWMHS sod phos di, mono-K phos mono 250 mg (S-Qlip-Ptmxflu) 1 tab PO BID 1 day sodium phosphates 19-7 gram/118 mL (Enema) 118 mL VA NEEDED PRN trazodone 100 mg (2 x 50 mg) PO BEDTIME warfarin (Jantoven) 1.5 mg PO DAILY@1800 HPI Comments Details: 79-year-old female complex medical issues presenting follow-up. She recently was diagnosed with severe mitral valve regurgitation was felt not to be a good surgical candidate and underwent MitraClip. She had improvement in symptoms afterwards. She has advanced lung disease due to previous lung resection as well as radiation to the lungs. She also had pulmonary embolism in the past. She has pulmonary hypertension. She is presenting now because she was becoming more short of breath and had lower extremity edema. On her own she crease her furosemide to 40 mg over the last week or so. She said her breathing did not change with that strategy. It appears early November she was in the emergency department with shortness of breath and was diagnosed with left lower lobe pneumonia. She had some sharp left-sided chest pains which were pleuritic in nature likely due to underlying pneumonia. She was given antibiotics which she has completed. She is saying that her oxygen saturations the low when she is laying down. She does not use oxygen frequently. Specifically outside her home she does not use oxygen. She has tachycardia when she is ambulating which she has noticed but does not significantly get any palpitations. She continues to get short of breath with activities. She saw a pulmonary hypertension specialist and by her description she was told that her pulmonary hypertension was mostly due to mitral regurgitation. She is following with pulmonology at [place]. 12/29/22: Was brought in for urgent follow-up. She called and was complaining of palpitations and fast heart rates as high as 120 beats per minute and was also complaining of shortness of breath. It appears she was referred for echocardiography by pulmonology and this showed that her right ventricle is [id number] dilated, right atrium was severely dilated with small pericardial effusion as before but small to moderate pleural effusion was also noted. Previous iatrogenic ASD from transseptal puncture was noted as well mitral stenosis due to mitral clip with mean gradient of 8-9 mm Hg. Previously this was 7 mm Hg. The patient was previously advised to use oxygen when she is ambulating. Apparently she was out with her friends and while walking she was not using oxygen and started feeling shortness of breath and checked her pulse and it was 120 beats per minute. She is saying when she is using oxygen she does not get similar symptoms and has not had any tachycardia while using oxygen. She has also gained few lb over the last few days. She was sent for chest x-ray which is showing left basal pleural effusion as seen on the echocardiography also. She is taking Lasix 40 mg once a day. She is on metoprolol succinate 25 mg twice a day. 01/11/23: She returns for follow-up. She had Holter monitor on her and the day she came to return it she had significant palpitations and shortness of breath while walking to the Cardiology Department. She said she was not rushing and was walking at a slow pace. She said these symptoms improved afterwards and she did not have any for the palpitations walking back to her car. She was using oxygen. She is wearing oxygen 30/01 but is saying that she feels lousy and has not felt any difference in her dyspnea or palpitations. She has been using 40 mg twice a day of Lasix. Her blood pressure control is good. Previously we did not increase her Toprol XL despite seeing some degree of mitral stenosis on her echocardiogram which is iatrogenic due to MitraClip. She has been more sedentary and is quite frail and deconditioned. She is tearful that she is unable to do any of the activities she was able to do before. 02/13/23: She returns for follow-up. She was previously on 40 mg p.o. b.i.d. Lasix. She had called our office for lower extremity edema and Lasix dose was increased to 80 mg twice a day. Subsequent to that she called or office that she is dehydrated and was advised to take 80 mg in the morning and 40 in the afternoon. She had blood workup which showed hypokalemia and she was started on potassium supplements. She continues to get fatigue and SOB. She is using oxygen when sleeping and with ambulation. Continues to get tachycardia with ambulation. 04/26/2023: She returns for follow-up. She called us yesterday because she gained 3 lb over 3 days. She was taking 40 mg p.o. b.i.d. Lasix. She was advised to take an extra dose of Lasix yesterday and increase the Lasix to 80 mg in the morning today. She said she checked her weight today and was back at 128 lb which was her baseline. She is saying she has been short of breath and fatigue. Also she had upper back pain which moved to her chest early April and she went to [facility] where she had a chest CTA performed which did not show any evidence of dissection or pulmonary embolism. Pulmonary arteries were noticed to be dilated consistent with her known history of pulmonary hypertension. 08/14/2023: She returns for follow-up. She had an episode of diverticulitis which was treated in the hospital. She said she went home and was getting some shortness of breath and wheezing and was advised to go back to the hospital and was treated for pneumonia also. She continues to have symptoms like before including chest tightness, fatigue and inability to exercise. She is on oxygen mostly at times. She complains of some edema in the lower extremity but nothing significant is noted on examination. 09/04/2023: She returns for urgent follow-up. She is complaining of shortness of breath and palpitations. She said she was tachycardic and checked her heart rate and was 100 beats per minute. She has been using oxygen most of the time. Sometimes she takes it off and if the oxygen level is dropping she wears oxygen back. During activities she has been using oxygen. Continues to get off and on chest discomfort. She had an echocardiogram done at [facility] with transmitral gradient was 7 mm Hg at a heart rate of 76 beats per minute. 10/17/23: She is here for follow-up after recent ER visit. Apparently was getting lower extremity edema and went to the emergency department where she was told that she may have congestive heart failure. No significant changes in medications were made. Her BNP was at the same level that it has been previously. She called our office and was concerned and we decided to bring her for office visit. She is saying that she was short of breath and had lower extremity edema and went to the emergency department and apparently after testing no changes in medications were made. She clearly has some peripheral edema. She also is complaining of some shortness of breath with activities. 11/20/23: She is here for follow-up. She had repeat echocardiography performed which is showing normal LV function 60-65 % without any wall motion abnormalities with elevated filling pressures, normal right ventricular systolic function with mild RV dilation, mitral clip with 8 mm pressure gradient across the mitral valve at heart rate of 88 beats per minute. [id number] pulmonary hypertension. She is complaining of fatigue and gets tired very easily. She has not been exercising and has slowed down significantly. With Lasix her volume status appears to be better but she is still complaining of off and on lower extremity edema. She is concerned about her kidneys. I have reassured her that she looks euvolemic. Also discussed with her the ECHO findings which are quite reassuring currently. 03/06/2024: She is here for follow-up. She had multiple issues since she last saw us in November. She had pneumonia followed by diverticulitis as well as a hematoma on the right lagos which was drained by surgeon. She was getting more short of breath and apparently had a chest x-ray performed which showed pleural effusions. Her Lasix dose was increased to 80 mg twice a day. She started the higher dose today. She was previously taking 80 mg and 40 mg in the morning and afternoon. Denying any other complaints. 03/25/2024: She returns for follow-up. She was recently seen for congestive heart failure episode. Her Lasix dose was increased to 80 mg twice a day. She had subsequent blood workup which showed stable kidney function. BNP improved. Clinically she has improved somewhat but continues to have some shortness of breath. She is using oxygen more frequently and appears to be calmer than before and has no obvious shortness of breath. She has been coughing and will be discussing this more with pulmonology. 06/24/2024: She is here for follow-up. She is denying any chest pains. She is saying her breathing is stable. She is using supplemental oxygen. She is using BiPAP at night for few hours but apparently was noticed to be snoring while wearing BiPAP and is in the process of getting repeat sleep study. No significant complaints on follow-up. [facility] Medical History (Updated 04/12/24 @ 00:00 by Background Daemon) COPD (chronic obstructive pulmonary disease) Open wound Warfarin anticoagulation Complex sleep apnea syndrome Chronic hypercapnic respiratory failure Leg pain Anemia Tachycardia DVT (deep venous thrombosis) Compression fracture of body of thoracic vertebra ASD (atrial septal defect) Pleuritic chest pain History of COVID-19 Chronic anticoagulation Hypothyroidism GERD (gastroesophageal reflux disease) Hyperlipidemia Hypertension Factor 5 Leiden mutation, heterozygous History of non-ST elevation myocardial infarction (NSTEMI) Hypoxia Anxiety PTSD (post-traumatic stress disorder) Hemoptysis Dyspnea Tracheobronchitis CLARA positive Diverticulitis Allergic bronchitis (HFpEF) heart failure with preserved ejection fraction Subarachnoid bleed Insomnia Anti-phospholipid antibody syndrome Hypogammaglobulinemia Chronic respiratory failure Arterial insufficiency of lower extremity Complex regional pain syndrome i of right lower limb Post herpetic neuralgia Pulmonary hypertension Pericardial effusion Pulmonary emboli Pleural effusion Radiation fibrosis of lung Pneumonitis Pulmonary nodules KANDY treated with BiPAP Lung cancer Surgical History History of colonoscopy History of lung surgery History of tonsillectomy History of hysterectomy S/P mitral valve clip implantation History of cardiac cath Family History Sister No problems noted. Mother Cardiovascular disease Daughter Tachycardia Other KANDY (obstructive sleep apnea) Social History Household Members: Other Housing: Jail Do you presently have visiting nurse or other home services: Yes (at home had PROFESSIONAL ORGANIZER that came to visit her) Unable to assess alcohol history related to: Unknown Alcohol intake: former Comment: stand by assist with ambulation Patient Tobacco Use Status: Never used Tobacco Second Hand Smoke Exposure: No Advance Directives Date on File: 06/15/22 service: No Current occupational status: retired Review of Systems Const Denies chills, Denies fatigue, Denies fever(s), Denies frequent falls, Denies weakness, Denies weight gain and Denies weight loss ENT Denies dizziness Card Denies chest pain, Denies leg edema, Denies lightheadedness, Denies palpitations, Denies dyspnea and Denies dyspnea on exertion Resp Denies cough, Denies dyspnea and Denies dyspnea on exertion GI Denies hematochezia Musc Denies abnormal gait, Denies muscle weakness, Denies numbness, Denies radiating pain into limb and Denies tingling Neuro Denies abnormal gait, Denies dizziness, Denies frequent falls, Denies numbness, Denies tingling and Denies weakness Endo Denies fatigue and Denies palpitations Physical Exam Vital Signs: Last Vital Signs Pulse 79 06/24/24 14:24 BP 100/60 06/24/24 14:24 BMI result Body Mass Index 22.6 GENERAL APPEARANCE: In no distress. NECK/THYROID: no carotid bruit, no JVD. SKIN: no suspicious lesions, warm and dry. HEART: no murmurs, regular rate and rhythm, S1, S2 normal. LUNGS: clear to auscultation bilaterally. ABDOMEN: normal, bowel sounds present, soft, nontender, nondistended. EXTREMITIES: no clubbing, cyanosis. No edema. PERIPHERAL PULSES: equal. NEUROLOGIC: nonfocal, alert and oriented. Assessment & Plan Assessment & Plan (1) Diastolic CHF: Code(s): I50.30 - Unspecified diastolic (congestive) heart failure Category: Medical Qualifiers: Heart failure chronicity: chronic Qualified Code(s): I50.32 - Chronic diastolic (congestive) heart failure Plan Pleasant 79-year-old female with complex medical issues who is here for follow-up. She has chronic diastolic heart failure. She also has pulmonary hypertension. Lasix was increased to 80 mg twice a day and she has done well with that approach. Continue same dose for now. Clinically stable at this stage. Same medicines for now. She is getting repeat sleep study. Thank you for allowing me to participate in the care of your patient. Please feel free to contact me if you have any questions. Coding Level of Care Code Est Pt Level 4 (80889) Diagnoses Chronic diastolic congestive heart failure I50.32 Heart failure chronicity: chronic
== END 2024-06-24 14:58 | disposition home or self-care (01) ==
PROVIDERS: PCP Internal Medicine; Visit Provider Internal Medicine Cardiovascular Disease
DX: I50.32 Chronic diastolic (congestive) heart failure (principal)
CPT/HCPCS: 99214

== ENCOUNTER → 2024-06-24 14:08 | Outpatient (BNVA) | payer MEDICARE, SELFPAY | PROVIDERS: PCP Internal Medicine; Visit Provider Internal Medicine Cardiovascular Disease | DX: I27.20 Pulmonary hypertension, unspecified (principal); I50.30 Unspecified diastolic (congestive) heart failure; Z99.81 Dependence on supplemental oxygen; Z99.89 Dependence on other enabling machines and devices | CPT/HCPCS: 99212 ==

== ENCOUNTER 2024-08-08 10:55 | Outpatient (REF) | payer MEDICARE, SELFPAY ==
[2024-08-08 12:24] LABS: MANUAL DIFF FLAG NO
[2024-08-08 12:30] LABS: Basophils Absolute Auto 0.1 X10*3/uL (0.0-0.2); Basophils Percent Auto 0.4 % (0-2); Eosinophils Absolute Auto 0.1 X10*3/uL (0.0-0.4); Eosinophils Percent Auto 0.5 % (0-4); Hematocrit 36.9 % (37.0-47.0); Imm Gran Abs Auto 0.11 X10*3/uL (0.00-0.03); Imm Gran Pct Auto 0.7 % (0.0-0.4); Lymphocytes Percent Auto 6.1 % (20-40); Mean Corpuscular HGB Conc 32.5 g/dl (31.0-35.0); Mean Corpuscular Hemoglobin 32.7 pg (27.0-33.0); Mean Corpuscular Volume 100.5 fL (80.0-98.0); Mean Platelet Volume 10.8 fL (9.4-12.3); Monocytes Absolute Auto 1.1 X10*3/uL (0.1-1.2); Monocytes Percent Auto 6.9 % (2-11); Neutrophils Absolute Auto 13.5 x10*3/uL (2.0-8.3); Neutrophils Percent Auto 85.4 % (45-73); Platelet Count 223 X10*3/uL (160-400); Red Blood Count 3.67 X10*6/uL (4.20-5.50); Red Cell Distribution Width 14.5 % (11.0-16.0); White Blood Count 15.8 X10*3/uL (4.8-10.8)
[2024-08-08 12:38] LABS: VBG Base Excess 11.7 mmol/L; VBG HCO3 37 mmol/L (22-26); VBG pCO2 54 mmHg; VBG pH 7.44 (7.32-7.43); VBG pO2 41 mmHg
[2024-08-08 12:39] LABS: Venous Blood Gas Refer to POC result
[2024-08-08 12:44] LABS: Alanine Aminotransferase 38 U/L (0-31); Alkaline Phosphatase 74 U/L (39-117); Anion Gap 10 (12-20); Aspartate Amino Transferase 37 U/L (5-31); Bilirubin Direct 0.2 mg/dL (0.0-0.5); Bilirubin Total 0.4 mg/dL (0.0-1.0); Blood Urea Nitrogen 27 mg/dL (9-16); Calcium 10.5 mg/dL (8.4-10.2); Carbon Dioxide 32 mmol/L (22-29); Chloride 100 mmol/L (96-108); Estimated Glomerular Filt Rate > 60; Glucose Random 105 mg/dL (60-115); Potassium 4.3 mmol/L (3.3-5.1); Sodium 138 mmol/L (135-145); Total Protein 7.6 g/dL (6.5-8.0)
[2024-08-08 13:10] LABS: Appearance Urine Clear; Color Urine Yellow; Glucose Urine UA Negative (Negative); Leukocyte Esterase Urine Negative (Negative); Nitrite Urine Negative (Negative); Urine Blood Negative (Negative); Urine Ketones Negative (Negative); Urine Protein Negative (Neg-Trace)
[2024-08-08 13:11] LABS: Erythrocyte Sedimentation Rate 51 MM/HR (0-20)
--- OUTSIDE RECORDS SUMMARY | 2024-08-08 15:49 | XMS_ITS | Encounter Summary ---
Author Organization [facility] Address [address] [place] [address] Care Team Providers Care Hot Blaster Name Role Phone Victorino Martin MD Primary Care Provider Sharon Odonnell Primary Care Provider Brennan Castro MD Primary Care Provider Unavailab Hayden Montes MD Unavailable [phone] Pallavi Flood NP Unavailable +1- [phone] Caitlyn Bowie MD Primary Care Provider Johnathon shaver Encounter Details Date Type Department Care Team Description 06/21/2018 Orders Only Pulmonology - [address] [place] [address] Henry Kelly MD Social History [...] on filedocumented in this encounter Care Teams Hot Blaster Relationship Specialty Start Date End Date Victorino Martin MD PCP - General Internal Medicine 12/21/17 08/01/18 Sharon Vides PCP - General Internal Medicine 08/02/18 05/26/20 Brennan Burnett MD PCP - General Internal Medicine 05/27/20 12/07/21 Caitlyn Bowie MD [address] [place] [address] PCP - General Internal Medicine 12/08/21 Hayden Shah MD [address] [place], [place] [address] Specialist Cardiovascular Disease 09/01/20 Pallavi Flood NP [address] [place] [address] Cardiology 09/01/20 documented as of this encounter
--- OUTSIDE RECORDS SUMMARY | 2024-08-08 15:49 | XMS_ITS | Encounter Summary ---
Author Organization [facility] and [facility] Address [address] [place] [address] Care Team Providers Care Thread Inspector Name Role Phone Caitlyn Bowie MD Primary Care Provider +1- [phone] Encounter Details Date Type Department Care Team (Late st Contact Info) Description 05/14/2020 Documentation Hematology Program at [address] [address] Taya Nuno RN Social History Tobacco Use [...] 1:00 PM EDT Telemedicine Cancer Center at [address] [place] [address] Ronald Mills MD [address] [place] [address] documented as of this encounter Visit Diagnoses Not on filedocumented in this encounter Additional Health Concerns Infection Onset Date Last Indicated Resolved Time COVID-19 03/05/2022 03/05/2022 03/15/2022 7:18 PM EDT Assessment Noted Time PHQ-9 Depression Total Score: 2 11/07/19 19 2:06 PM EDT documented as of this encounter Care Teams Thread Inspector Relationship Specialty Start Date End Date Caitlyn Bowie MD 3400 [facility] Max 1 [place] [address] PCP - General Internal Medicine 05/06/21 Henry Kelly MD Pulmonary Department 175 [facility], [address] [place] [address] Physician Pulmonary Disease 09/06/17 06/22/20 documented as of this encounter
--- OUTSIDE RECORDS SUMMARY | 2024-08-08 15:49 | XMS_ITS | Encounter Summary ---
Author Organization [facility] Address [address] [place] [address] Care Team Providers Care Peer Tutor Name Role Phone Caitlyn Bowie MD Primary Care Provider +1- [phone] Encounter Details Date Type Department Care Team (Late st Contact Info) Description 07/08/2020 Scanned Document [facility] Health Information Management [address] [place] [address] External, Provider Social History Tobacco Use Types [...] [facility] 240 [facility] [address] [place], [place] [address] Ronald Mills MD [address] [place] [address] [address] [place] [address] documented as of this encounter [...] documented as of this encounter Care Teams Peer Tutor Relationship Specialty Start Date End Date Caitlyn Bowie MD [address] [address] PCP - General Internal Medicine 05/06/21 documented as of this encounter
--- OUTSIDE RECORDS SUMMARY | 2024-08-08 15:49 | XMS_ITS | Encounter Summary ---
Author Organization [facility] Address [address] [place] [address] Care Team Providers Care System Programmer Name Role Phone Victorino Martin MD Primary Care Provider UnavailSharon Kimbrough Primary Care Provider Unava ilable Brennan Burnett MD Primary Care Provider Unavailab Hayden Montes MD Unavailable [phone] Pallavi Flood NP Unavailable [phone]- [phone] Caitlyn Bowie MD Primary Care Provider Unava ilable Reason for Visit * Reason Onset Date Comments Call From Md Office 06/27/2018 Encounter Details Date Type Department Care Team Description 06/27/2018 Telephone Pulmonology - [address] [place] [address] Henry Kelly MD Call From [...] Szymanski calling to speak to Dr. Kelly [phone] documented in this encounter Plan of Treatment Not on file documented as of this encounter Visit Diagnoses Not on filedocumented in this encounter Care Teams System Programmer Relationship Specialty Start Date End Date Victorino Martin MD PCP - General Internal Medicine 12/21/17 08/01/18 Sharon Vides PCP - General Internal Medicine 08/02/18 05/26/20 Brennan Burnett MD PCP - General Internal Medicine 05/27/20 12/07/21 Caitlyn Bowie MD [address] [place] [address] PCP - General Internal Medicine 12/08/21 Hayden Shah MD [address] [place], [place] [address] Specialist Cardiovascular Disease 09/01/20 Pallavi Flood NP [address] [place], [place] [address] Cardiology 09/01/20 documented as of this encounter
--- OUTSIDE RECORDS SUMMARY | 2024-08-08 15:49 | XMS_ITS | Encounter Summary ---
Author Organization [facility] and [facility] Address [address] [place] [address] Care Team Providers Care Rag Baler Name Role Phone Caitlyn Bowie MD Primary Care Provider +1- [phone] Encounter Details Date Type Department Care Team (Late st Contact Info) Description 05/19/2020 Scanned Document Cancer Center at [address] [address] External, Provider Social History Tobacco Use Types [...] at [facility] 240 [facility] Building [address] [place], [place] [phone] Ronald Mills MD [address] [place] [address] [address] [place] [address] documented as of this encounter [...] documented as of this encounter Care Teams Rag Baler Relationship Specialty Start Date End Date Caitlyn Bowie MD 3400 [facility] 1 [place] [address] PCP - General Internal Medicine 05/06/21 Henry Kelly MD Pulmonary Department 175 [facility], [address] [place] [address] Physician Pulmonary Disease 09/06/17 06/22/20 documented as of this encounter
--- OUTSIDE RECORDS SUMMARY | 2024-08-08 15:49 | XMS_ITS | Encounter Summary ---
Author Organization [facility] Address [address] [place] [address] Care Team Providers Care Edge Gluer Name Role Phone Brennan Burnett MD Primary Care Provider [phone] Reason for Visit * Reason Onset Date [...] (Late st Contact Info) Description 08/08/2024 Telephone [facility] Speech Therapy [address] [address] Daphne Alarcon, QUALITY CONTROL LAB TECHNICIAN Memory Loss (Returned pt call from 08/07 [...] PM EST Office Visit Gastroenterology - 299 [facility] 299 [facility] 419 [place] [address] Saima Amor NP 299 [facility] 419 [place] [address] 08/27/2024 3:00 PM EST Office Visit [facility] 175 [facility] 150 [place] [address] Ayanna Jaffe MD 175 [facility] 150 [place] [address] documented as of this encounter Goals Goal Patient Goal Type Associated Problems Recent Progress Patient-Stated? Author ST [facility] General No Daphne Alarcon, QUALITY CONTROL LAB TECHNICIAN Note: Pt will improve cognitive linguistic function to participate and communicate in iADLs mod I ST STGs General No Daphne Alarcon, QUALITY CONTROL LAB TECHNICIAN Note: Pt will participate with development of [...] on filedocumented in this encounter Care Teams Edge Gluer Relationship Specialty Start Date End Date Brennan Burnett MD [address] [place] [address] PCP - General 05/06/24 documented as of this encounter
--- OUTSIDE RECORDS SUMMARY | 2024-08-08 15:49 | XMS_ITS | Encounter Summary ---
Author Organization [facility] and [facility] Address [address] [place] [address] Care Team Providers Care Dairy Specialist Name Role Phone Caitlyn Bowie MD Primary Care Provider +1- [phone] Encounter Details Date Type Department Care Team (Late st Contact Info) Description 02/02/2017 Scanned Document [facility] Health Information Management [address] [place] [address] External, Provider Social History Tobacco Use Types [...] Center at [facility] [address] [facility] [address] [place], [place] [id number] Ronald Mills MD 240 [facility] A1 [place] [address] documented as of this encounter Visit Diagnoses Not on filedocumented in this encounter Additional Health Concerns Infection Onset Date Last Indicated Resolved Time COVID-19 03/05/2022 03/05/2022 03/15/2022 7:18 PM EDT documented as of this encounter Care Teams Dairy Specialist Relationship Specialty Start Date End Date Caitlyn Bowie MD 3400 [facility] 1 [place] [address] PCP - General Internal Medicine 05/06/21 Henry Kelly MD Pulmonary Department 175 [facility], [address] [place] [address] Physician Pulmonary Disease 09/06/17 06/22/20 documented as of this encounter
--- OUTSIDE RECORDS SUMMARY | 2024-08-08 15:49 | XMS_ITS | Encounter Summary ---
Author Organization [facility] Address [address] [place] [address] Care Team Providers Care Physician Scribe Name Role Phone Caitlyn Bowie MD Primary Care Provider +1- [phone] Encounter Details Date Type Department Care Team (Late st Contact Info) Description 02/20/2017 Scanned Document [facility] Health Information Management [address] [place] [address] External, Provider Social History Tobacco Use Types [...] Cancer Center at [facility] 240 [facility] [address] [place], [place] [id number] Ronald Mills MD 240 [facility] Max [address] [place] [address] documented as of this encounter [...] documented as of this encounter Care Teams Physician Scribe Relationship Specialty Start Date End Date Caitlyn Bowie MD [address] [facility] 1 [place] [address] PCP - General Internal Medicine 05/06/21 Henry Kelly MD Pulmonary Department 175 [facility], [address] [place] [address] Physician Pulmonary Disease 09/06/17 06/22/20 documented as of this encounter
--- OUTSIDE RECORDS SUMMARY | 2024-08-08 15:50 | XMS_ITS | Encounter Summary ---
Author Organization [facility] and [facility] Address [address] [place] [address] Care Team Providers Care Lumber Sales Supervisor Name Role Phone Caitlyn Bowie MD Primary Care Provider +1- [phone] Encounter Details Date Type Department Care Team (Late st Contact Info) Description 08/16/2012 Abstract [facility] Health Information Management [address] [place] [address] [place], Primary Care [address] [place] [address] Social History Tobacco Use Types Packs/Day Years [...] 1:00 PM EDT Telemedicine Cancer Center at [address] [place], [place] [phone] Ronald Mills MD 240 [facility] [address] [place] [address] documented as of this encounter Visit Diagnoses Not on filedocumented in this encounter Additional Health Concerns Infection Onset Date Last Indicated Resolved Time COVID-19 03/05/2022 03/05/2022 03/15/2022 7:18 PM EDT documented as of this encounter Care Teams Lumber Sales Supervisor Relationship Specialty Start Date End Date Caitlyn Bowie MD 3400 [facility] 1 [place] [address] PCP - General Internal Medicine 05/06/21 Henry Kelly MD Pulmonary Department [address] [place] [address], [address] [place] [address] Physician Pulmonary Disease 09/06/17 06/22/20 documented as of this encounter
--- OUTSIDE RECORDS SUMMARY | 2024-08-08 15:50 | XMS_ITS | Encounter Summary ---
Author Organization [facility] and [facility] Address [address] [place] [address] Care Team Providers Care Slate Mixer Name Role Phone Caitlyn Bowie MD Primary Care Provider +1- [phone] Encounter Details Date Type Department Care Team (Late st Contact Info) Description 07/26/2012 Abstract [facility] Health Information Management [address] [place] [address] [place], Primary Care [address] [place] [address] Social History Tobacco Use Types Packs/Day Years [...] 1:00 PM EDT Telemedicine Cancer Center at [address] [place], [place] [address] Ronald Mills MD [address] [place] [address] documented as of this encounter Visit Diagnoses Not on filedocumented in this encounter Additional Health Concerns Infection Onset Date Last Indicated Resolved Time COVID-19 03/05/2022 03/05/2022 03/15/2022 7:18 PM EDT documented as of this encounter Care Teams Slate Mixer Relationship Specialty Start Date End Date Caitlyn Bowie MD 3400 [facility] 1 [place] [address] PCP - General Internal Medicine 05/06/21 Henry Kelly MD Pulmonary Department 175 [facility], [address] [place] [address] Physician Pulmonary Disease 09/06/17 06/22/20 documented as of this encounter
--- OUTSIDE RECORDS SUMMARY | 2024-08-08 15:50 | XMS_ITS | Encounter Summary ---
Author Organization [facility] Address [address] [place] [address] Care Team Providers Care Sewing Machine Attachment Tester Name Role Phone Caitlyn Bowie MD Primary Care Provider +1- [phone] Encounter Details Date Type Department Care Team (Late st Contact Info) Description 09/17/2020 Scanned Document [facility] Health Information Management [address] [place] [address] External, Provider Social History Tobacco Use Types [...] Cancer Center at [facility] 240 [facility] Building [address] [place], [place] [phone] Ronald Mills MD [address] [place] [address] [address] [place] [address] documented as of this encounter Procedures [...] documented as of this encounter Care Teams Sewing Machine Attachment Tester Relationship Specialty Start Date End Date Caitlyn Bowie MD [address] [address] PCP - General Internal Medicine 05/06/21 documented as of this encounter
--- OUTSIDE RECORDS SUMMARY | 2024-08-08 15:50 | XMS_ITS | Encounter Summary ---
Author Organization [facility] Address [address] [place] [address] Care Team Providers Care Management Consulting Name Role Phone Caitlyn Bowie MD Primary Care Provider +1- [phone] Encounter Details Date Type Department Care Team (Late st Contact Info) Description 01/22/2020 Scanned Document [facility] 800 [place] [address] Kerwin Menjivar MD 260 [facility] 3 [place] [address] Social History Tobacco Use Types [...] 1:00 PM EDT Telemedicine Cancer Center at [address] [place] [address] Ronald Mills MD 240 [facility] Max [address]1 [place] [address] documented as of this encounter Visit Diagnoses Not on filedocumented in this encounter Additional Health Concerns Infection Onset Date Last Indicated Resolved Time COVID-19 03/05/2022 03/05/2022 03/15/2022 7:18 PM EDT Assessment Noted Time PHQ-9 Depression Total Score: 2 11/07/19 19 2:06 PM EDT documented as of this encounter Care Teams Management Consulting Relationship Specialty Start Date End Date Caitlyn Bowie MD [address] [address] PCP - General Internal Medicine 05/06/21 Henry Kelly MD Pulmonary Department [address] [place] [address], [address] [place] [address] Physician Pulmonary Disease 09/06/17 06/22/20 documented as of this encounter
--- OUTSIDE RECORDS SUMMARY | 2024-08-08 15:50 | XMS_ITS | Encounter Summary ---
Author Organization [facility] and [facility] Address [address] [place] [address] Care Team Providers Care Chemical Packager Name Role Phone Caitlyn Bowie MD Primary Care Provider +1- [phone] Encounter Details Date Type Department Care Team (Late st Contact Info) Description 04/27/2017 Scanned Document [facility] Health Information Management [address] [place] [address] External, Provider Social History Tobacco Use Types [...] Center at [facility] 240 [facility] Building [address] [place], [place] [phone] Ronald Mills MD 240 [facility] A1 [place] [address] documented as of this encounter Visit Diagnoses Not on filedocumented in this encounter Additional Health Concerns Infection Onset Date Last Indicated Resolved Time COVID-19 03/05/2022 03/05/2022 03/15/2022 7:18 PM EDT documented as of this encounter Care Teams Chemical Packager Relationship Specialty Start Date End Date Caitlyn Bowie MD 3400 [facility] 1 [place] [address] PCP - General Internal Medicine 05/06/21 Henry Kelly MD Pulmonary Department 175 [facility], [address] [place] [address] Physician Pulmonary Disease 09/06/17 06/22/20 documented as of this encounter
--- OUTSIDE RECORDS SUMMARY | 2024-08-08 15:50 | XMS_ITS | Clinical Summary ---
Author Organization [facility] Address [address] [place] [address] Care Team Providers Care Art Glass Designer Name Role Phone Brennan Burnett MD Primary Care Provider [phone] Allergies Active Allergy Reactions Criticality Noted Date [...] age to complete this topic Care Teams Art Glass Designer Relationship Specialty Start Date End Date Brennan Burnett MD [address] [place] [address] PCP - General Internal Medicine 07/06/20
--- OUTSIDE RECORDS SUMMARY | 2024-08-08 15:50 | XMS_ITS | Encounter Summary ---
Author Organization [facility] and [facility] Address [address] [place] [place] [address] Care Team Providers Care Hat Forming Machine Operator Name Role Phone Caitlyn Bowie MD Primary Care Provider +1- [phone] Encounter Details Date Type Department Care Team (Late st Contact Info) Description 12/16/2016 Scanned Document [facility] Health Information Management [address] [place] [address] External, Provider Social History Tobacco Use Types [...] [facility] at [facility] 240 [facility] Building [address] [place], [place] [address] Ronald Mills MD 240 [facility] A1 [place] [address] documented as of this encounter Visit Diagnoses Not on filedocumented in this encounter Additional Health Concerns Infection Onset Date Last Indicated Resolved Time COVID-19 03/05/2022 03/05/2022 03/15/2022 7:18 PM EDT documented as of this encounter Care Teams Hat Forming Machine Operator Relationship Specialty Start Date End Date Caitlyn Bowie MD 3400 [facility] 1 [place] [address] PCP - General Internal Medicine 05/06/21 Henry Kelly MD Pulmonary Department 175 [facility], [address] [place] [address] Physician Pulmonary Disease 09/06/17 06/22/20 documented as of this encounter
--- OUTSIDE RECORDS SUMMARY | 2024-08-08 15:50 | XMS_ITS | Encounter Summary ---
Author Organization [facility] and [facility] Address [address] [place] [address] Care Team Providers Care Clinical Trial Assistant Name Role Phone Caitlyn Bowie MD Primary Care Provider +1- [phone] Encounter Details Date Type Department Care Team (Late st Contact Info) Description 06/27/2019 Scanned Document Onco-Oncology Program at [address] [place] [address] Norma Renee MD [address] [place] [address] 2 [place] [address] Social History Tobacco Use Types [...] 1:00 PM EDT Telemedicine Cancer Center at [address] [place], [place] [phone] Ronald Mills MD 240 [facility] A1 [place] [address] documented as of this encounter Visit Diagnoses Not on filedocumented in this encounter Additional Health Concerns Infection Onset Date Last Indicated Resolved Time COVID-19 03/05/2022 03/05/2022 03/15/2022 7:18 PM EDT Assessment Noted Time PHQ-9 Depression Total Score: 2 11/07/19 19 2:06 PM EDT documented as of this encounter Care Teams Clinical Trial Assistant Relationship Specialty Start Date End Date Caitlyn Bowie MD 3400 [facility] 1 [place] [address] PCP - General Internal Medicine 05/06/21 Henry Kelly MD Pulmonary Department 175 [facility], [address] [place] [address] Physician Pulmonary Disease 09/06/17 06/22/20 documented as of this encounter
--- OUTSIDE RECORDS SUMMARY | 2024-08-08 15:50 | XMS_ITS | Encounter Summary ---
Author Organization [facility] Address 20 [place] [address] Care Team Providers Care Motor Equipment Captain Name Role Phone Caitlyn Bowie MD Primary Care Provider [phone]- [phone] Encounter Details Date Type Department Care Team (Late st Contact Info) Description 01/28/2013 Scanned Document Thoracic Oncology Program at [address] [address] Solo Henry MD [address] [place] [address] Social History Tobacco Use Types Packs/Day [...] at [facility] 240 [facility] [address] [place], [place] [address] Ronald Mills MD 240 [facility] Max [address]1 [place] [address] documented as of this encounter Visit Diagnoses Not on filedocumented in this encounter Additional Health Concerns Infection Onset Date Last Indicated Resolved Time COVID-19 03/05/2022 03/05/2022 03/15/2022 7:18 PM EDT documented as of this encounter Care Teams Motor Equipment Captain Relationship Specialty Start Date End Date Caitlyn Bowie MD 3400 [facility] Max 1 [place] [address] PCP - General Internal Medicine 05/06/21 Henry Kelly MD Pulmonary Department 175 [facility], [address] [place] [address] Physician Pulmonary Disease 09/06/17 06/22/20 documented as of this encounter
--- OUTSIDE RECORDS SUMMARY | 2024-08-08 15:50 | XMS_ITS | Encounter Summary ---
Author Organization [facility] and [facility] Address [address] [place] [address] Care Team Providers Care Manager Dairy Name Role Phone Caitlyn Bowie MD Primary Care Provider +1- [phone] Encounter Details Date Type Department Care Team (Late st Contact Info) Description 12/03/2019 Scanned Document [facility] Health Information Management [address] [place] [address] External, Provider Social History Tobacco Use Types [...] Cancer Center at [facility] 240 [facility] [address] [place] [address] Ronald Mills MD [address] [place] [address] [address]1 [place] [address] documented as of this encounter Visit Diagnoses Not on filedocumented in this encounter Additional Health Concerns Infection Onset Date Last Indicated Resolved Time COVID-19 03/05/2022 03/05/2022 03/15/2022 7:18 PM EDT Assessment Noted Time PHQ-9 Depression Total Score: 2 11/07/19 19 2:06 PM EDT documented as of this encounter Care Teams Manager Dairy Relationship Specialty Start Date End Date Caitlyn Bowie MD 3400 [facility] 1 [place] [address] PCP - General Internal Medicine 05/06/21 Henry Kelly MD Pulmonary Department 175 [facility], [address] [place] [address] Physician Pulmonary Disease 09/06/17 06/22/20 documented as of this encounter
--- OUTSIDE RECORDS SUMMARY | 2024-08-08 15:50 | XMS_ITS | Encounter Summary ---
Author Organization [facility] and [facility] Address 20 [place] [address] Care Team Providers Care Metal Riveting Machine Operator Name Role Phone Caitlyn Bowie MD Primary Care Provider +1- [phone] Encounter Details Date Type Department Care Team (Late st Contact Info) Description 04/26/2017 Scanned Document Cardiovascular Medicine at [address] [place] [address] Norma Renee MD [address] [place] [phone] Social History Tobacco Use Types Packs/Day Years [...] PM EDT Telemedicine Cancer Center at [address] [place], [place] [phone] Ronald Mills MD [address] [place] [address] [address]1 [place] [address] documented as of this encounter Visit Diagnoses Not on filedocumented in this encounter Additional Health Concerns Infection Onset Date Last Indicated Resolved Time COVID-19 03/05/2022 03/05/2022 03/15/2022 7:18 PM EDT documented as of this encounter Care Teams Metal Riveting Machine Operator Relationship Specialty Start Date End Date Caitlyn Bowie MD 3400 [facility] 1 [place] [address] PCP - General Internal Medicine 05/06/21 Henry Kelly MD Pulmonary Department 175 [facility], [address] [place] [address] Physician Pulmonary Disease 09/06/17 06/22/20 documented as of this encounter
--- OUTSIDE RECORDS SUMMARY | 2024-08-08 15:50 | XMS_ITS | Encounter Summary ---
Author Organization [facility] Address [address] [place] [address] Care Team Providers Care Dinkey Engine Operator Name Role Phone Victorino Martin MD Primary Care Provider Sharon Odonnell Primary Care Provider Brennan Castro MD Primary Care Provider Unavailab Hayden Montes MD Unavailable [phone] Pallavi Flood NP Unavailable [phone]- [phone] Caitlyn Bowie MD Primary Care Provider Johnathon shaver Encounter Details Date Type Department Care Team Description 07/31/2018 Orders Only Pulmonology - [address] [place] [address] Henry Kelly MD Social History [...] on filedocumented in this encounter Care Teams Dinkey Engine Operator Relationship Specialty Start Date End Date Victorino Martin MD PCP - General Internal Medicine 12/21/17 08/01/18 Sharon Vides PCP - General Internal Medicine 08/02/18 05/26/20 Brennan Burnett MD PCP - General Internal Medicine 05/27/20 12/07/21 Caitlyn Bowie MD [address] [place] [address] PCP - General Internal Medicine 12/08/21 Hayden Shah MD [address] [place], [place] [phone] Specialist Cardiovascular Disease 09/01/20 Pallavi Flood NP [address] [place] [address] Cardiology 09/01/20 documented as of this encounter
--- OUTSIDE RECORDS SUMMARY | 2024-08-08 15:50 | XMS_ITS | Encounter Summary ---
Author Organization [facility] Address [address] [place] [address] Care Team Providers Care Dealer Support Technician Name Role Phone Caitlyn Bowie MD Primary Care Provider +1- [phone] Encounter Details Date Type Department Care Team (Late st Contact Info) Description 06/27/2019 Scanned Document Onco-Oncology Program at [address] [place] [address] Norma Renee MD [address] [place] [address] 2 [place] [address] Social History Tobacco Use Types [...] 1:00 PM EDT Telemedicine Cancer Center at [address] [place], [place] [phone] Ronald Mills MD 240 [facility] A1 [place] [address] documented as of this encounter Visit Diagnoses Not on filedocumented in this encounter Additional Health Concerns Infection Onset Date Last Indicated Resolved Time COVID-19 03/05/2022 03/05/2022 03/15/2022 7:18 PM EDT Assessment Noted Time PHQ-9 Depression Total Score: 2 11/07/19 19 2:06 PM EDT documented as of this encounter Care Teams Dealer Support Technician Relationship Specialty Start Date End Date Caitlyn Bowie MD 3400 [facility] 1 [place] [address] PCP - General Internal Medicine 05/06/21 Henry Kelly MD Pulmonary Department 175 [facility], [address] [place] [address] Physician Pulmonary Disease 09/06/17 06/22/20 documented as of this encounter
--- OUTSIDE RECORDS SUMMARY | 2024-08-08 15:50 | XMS_ITS | Encounter Summary ---
Author Organization [facility] and [facility] Address [address] [place] [address] Care Team Providers Care Zigzag Appliquer Name Role Phone Caitlyn Bowie MD Primary Care Provider +1- [phone] Encounter Details Date Type Department Care Team (Late st Contact Info) Description 11/26/2019 Scanned Document Cancer Center at [address] [address] External, Provider Social History Tobacco Use Types [...] [facility] at [facility] 240 [facility] Building [address] [place], [place] [phone] Ronald Mills MD [address] [place] [address] [address] [place] [address] documented as of this encounter [...] documented as of this encounter Care Teams Zigzag Appliquer Relationship Specialty Start Date End Date Caitlyn Bowie MD 3400 [facility] 1 [place] [address] PCP - General Internal Medicine 05/06/21 Henry Kelly MD Pulmonary Department 175 [facility], [address] [place] [address] Physician Pulmonary Disease 09/06/17 06/22/20 documented as of this encounter
--- OUTSIDE RECORDS SUMMARY | 2024-08-08 15:50 | XMS_ITS | Encounter Summary ---
Author Organization [facility] and [facility] Address [address] [place] [address] Care Team Providers Care Inspector Bicycle Name Role Phone Caitlyn Bowie MD Primary Care Provider +1- [phone] Encounter Details Date Type Department Care Team (Late st Contact Info) Description 09/15/2020 Scanned Document [facility] Health Information Management [address] [place] [address] External, Provider Social History Tobacco Use Types [...] [facility] 240 [facility] Building [address] [place], [place] [phone] Ronald Mills MD [address] [place] [address] [address] [place] [address] documented as of this encounter Procedures [...] documented as of this encounter Care Teams Inspector Bicycle Relationship Specialty Start Date End Date Caitlyn Bowie MD [address] [address] PCP - General Internal Medicine 05/06/21 documented as of this encounter
--- OUTSIDE RECORDS SUMMARY | 2024-08-08 15:50 | XMS_ITS | Encounter Summary ---
Author Organization [facility] Address [address] [place] [address] Care Team Providers Care Independent Beauty Consultant Name Role Phone Cristofer Hope MD Primary Care Provider Victorino Read MD Primary Care Provider UnavailSharon Kimbrough Primary Care Provider Unava Brennan Zheng MD Primary Care Provider Unavailab Hayden Montes MD Unavailable [phone] Pallavi Flood NP Unavailable [phone]- [phone] Caitlyn Bowie MD Primary Care Provider Unaailyn shaver Encounter Details Date Type Department Care Team Description 08/07/2017 [facility] Medical Records [address] [place] [address] Abstract, Provider Social History Tobacco Use Types [...] on filedocumented in this encounter Care Teams Independent Beauty Consultant Relationship Specialty Start Date End Date Cristofer Hope MD PCP - General Internal Medicine 05/16/17 12/20/17 Victorino Martin MD PCP - General Internal Medicine 12/21/17 08/01/18 Sharon Vides PCP - General Internal Medicine 08/02/18 05/26/20 Brennan Burnett MD PCP - General Internal Medicine 05/27/20 12/07/21 Caitlyn Bowie MD [address] [place] [address] PCP - General Internal Medicine 12/08/21 Hayden Shah MD [address] [place] [address] Specialist Cardiovascular Disease 09/01/20 Pallavi Flood NP [address] [place] [address] Cardiology 09/01/20 documented as of this encounter
--- OUTSIDE RECORDS SUMMARY | 2024-08-08 15:50 | XMS_ITS | Encounter Summary ---
Author Organization [facility] and [facility] Address [address] [place] [address] Care Team Providers Care Pepper Picker Name Role Phone Caitlyn Bowie MD Primary Care Provider +1- [phone] Encounter Details Date Type Department Care Team (Late st Contact Info) Description 09/15/2020 Scanned Document Cancer Center at [address] [address] External, Provider Social History Tobacco Use Types [...] at [facility] 240 [facility] [address] [place], [place] [phone] Ronald Mills MD [address] [place] [address] [address] [place] [address] documented as of this encounter [...] documented as of this encounter Care Teams Pepper Picker Relationship Specialty Start Date End Date Caitlyn Bowie MD [address] [address] PCP - General Internal Medicine 05/06/21 documented as of this encounter
--- OUTSIDE RECORDS SUMMARY | 2024-08-08 15:50 | XMS_ITS | Encounter Summary ---
Author Organization [facility] and [facility] Address [address] [place] [address] Care Team Providers Care General Machine Operator Name Role Phone Caitlyn Bowie MD Primary Care Provider +1- [phone] Encounter Details Date Type Department Care Team (Late st Contact Info) Description 06/27/2019 Scanned Document Onco-Oncology Program at [address] [place] [address] Norma Renee MD [address] [place] [address] 2 [place] [address] Social History Tobacco Use Types [...] 1:00 PM EDT Telemedicine Cancer Center at [address] [place], [place] [phone] Ronald Mills MD 240 [facility] A1 [place] [address] documented as of this encounter Visit Diagnoses Not on filedocumented in this encounter Additional Health Concerns Infection Onset Date Last Indicated Resolved Time COVID-19 03/05/2022 03/05/2022 03/15/2022 7:18 PM EDT Assessment Noted Time PHQ-9 Depression Total Score: 2 11/07/19 19 2:06 PM EDT documented as of this encounter Care Teams General Machine Operator Relationship Specialty Start Date End Date Caitlyn Bowie MD 3400 [facility] 1 [place] [address] PCP - General Internal Medicine 05/06/21 Henry Kelly MD Pulmonary Department 175 [facility], [address] [place] [address] Physician Pulmonary Disease 09/06/17 06/22/20 documented as of this encounter
--- OUTSIDE RECORDS SUMMARY | 2024-08-08 15:50 | XMS_ITS | Encounter Summary ---
Author Organization [facility] and [facility] Address [address] [place] [address] Care Team Providers Care Monitoring Engineer Name Role Phone Caitlyn Bowie MD Primary Care Provider +1- [phone] Encounter Details Date Type Department Care Team (Late st Contact Info) Description 12/16/2016 Scanned Document [facility] Health Information Management [address] [place] [address] External, Provider Social History Tobacco Use Types [...] Center at [facility] 240 [facility] Building [address] [place], [place] [address] Ronald Mills MD 240 [facility] Max [address] [place] [address] documented as of this encounter [...] documented as of this encounter Care Teams Monitoring Engineer Relationship Specialty Start Date End Date Caitlyn Bowie MD 3400 [facility] 1 [place] [address] PCP - General Internal Medicine 05/06/21 Henry Kelly MD Pulmonary Department 175 [facility], [address] [place] [address] Physician Pulmonary Disease 09/06/17 06/22/20 documented as of this encounter
--- OUTSIDE RECORDS SUMMARY | 2024-08-08 15:50 | XMS_ITS | Encounter Summary ---
Author Organization [facility] and [facility] Address [address] [place] [address] Care Team Providers Care Solar Panel Technician Name Role Phone Caitlyn Bowie MD Primary Care Provider +1- [phone] Encounter Details Date Type Department Care Team (Late st Contact Info) Description 12/19/2016 Scanned Document [facility] Health Information Management [address] [place] [address] External, Provider Social History Tobacco Use Types [...] [facility] 240 [facility] Building [address] [place], [place] [address] Ronald Mills MD 240 [facility] Max [address]1 [place] [address] documented as of this encounter [...] documented as of this encounter Care Teams Solar Panel Technician Relationship Specialty Start Date End Date Caitlyn Bowie MD [facility]0 [facility] 1 [place] [address] PCP - General Internal Medicine 05/06/21 Henry Kelly MD Pulmonary Department 175 [facility], [address] [place] [address] Physician Pulmonary Disease 09/06/17 06/22/20 documented as of this encounter
--- OUTSIDE RECORDS SUMMARY | 2024-08-08 15:50 | XMS_ITS | Encounter Summary ---
Author Organization [facility] and [facility] Address [address] [place] [address] Care Team Providers Care Assistant Boys Track Coach Name Role Phone Caitlyn Bowie MD Primary Care Provider +1- [phone] Encounter Details Date Type Department Care Team (Late st Contact Info) Description 12/16/2016 Scanned Document [facility] Health Information Management [address] [place] [address] External, Provider Social History Tobacco Use Types [...] Cancer Center at [facility] 240 [facility] Building [address] [place], [place] [address] Ronald Mills MD 240 [facility] A1 [place] [address] documented as of this encounter [...] as of this encounter Care Teams Assistant Boys Track Coach Relationship Specialty Start Date End Date Caitlyn Bowie MD [facility] 1 [place] [address] PCP - General Internal Medicine 05/06/21 Henry Kelly MD Pulmonary Department 175 [facility], [address] [place] [address] Physician Pulmonary Disease 09/06/17 06/22/20 documented as of this encounter
--- OUTSIDE RECORDS SUMMARY | 2024-08-08 15:50 | XMS_ITS | Encounter Summary ---
Author Organization [facility] Address [address] [place] [address] Care Team Providers Care Software Program Manager Name Role Phone Caitlyn Bowie MD Primary Care Provider +1- [phone] Encounter Details Date Type Department Care Team (Late st Contact Info) Description 12/16/2016 Scanned Document [facility] Health Information Management [address] [place] [address] External, Provider Social History Tobacco Use Types [...] [facility] 240 [facility] Building [address] [place], [place] [address] Ronald Mills MD 240 [facility] Max [address]1 [place] [address] documented as of this encounter [...] documented as of this encounter Care Teams Software Program Manager Relationship Specialty Start Date End Date Caitlyn Bowie MD 3400 [facility] 1 [place] [address] PCP - General Internal Medicine 05/06/21 Henry Kelly MD Pulmonary Department 175 [facility], [address] [place] [address] Physician Pulmonary Disease 09/06/17 06/22/20 documented as of this encounter
--- OUTSIDE RECORDS SUMMARY | 2024-08-08 15:50 | XMS_ITS | Encounter Summary ---
Author Organization [facility] and [facility] Address [address] [place] [address] Care Team Providers Care Application Lead Name Role Phone Caitlyn Bowie MD Primary Care Provider +1- [phone] Encounter Details Date Type Department Care Team (Late st Contact Info) Description 09/18/2020 Scanned Document [facility] Health Information Management [address] [place] [address] External, Provider Social History Tobacco Use Types [...] [facility] 240 [facility] Building [address] [place], [place] [phone] Ronald Mills MD [address] [place] [address] [address]1 [place] [address] documented as of this encounter [...] as of this encounter Care Teams Application Lead Relationship Specialty Start Date End Date Caitlyn Bowie MD [address] [address] PCP - General Internal Medicine 05/06/21 documented as of this encounter
--- OUTSIDE RECORDS SUMMARY | 2024-08-08 15:50 | XMS_ITS | Encounter Summary ---
Author Organization [facility] Address [address] [place] [address] Care Team Providers Care Regional Project Manager Name Role Phone Caitlyn Bowie MD Primary Care Provider +1- [phone] Encounter Details Date Type Department Care Team (Late st Contact Info) Description 09/15/2020 Scanned Document INTERFACE DEFAULT [address] [place] [address] System, Provider Not In Social History Tobacco [...] Telemedicine Cancer Center at [facility] 240 [facility] Building [address] [place] [address] Ronald Mills MD [address] [place] [address] [address]1 [place] [address] documented as of this encounter Visit Diagnoses Not on filedocumented in this encounter Additional Health Concerns Infection Onset Date Last Indicated Resolved Time COVID-19 03/05/2022 03/05/2022 03/15/2022 7:18 PM EDT Assessment Noted Time PHQ-9 Depression Total Score: 2 11/07/19 19 2:06 PM EDT documented as of this encounter Care Teams Regional Project Manager Relationship Specialty Start Date End Date Caitlyn Bowie MD [address] [address] PCP - General Internal Medicine 05/06/21 documented as of this encounter
--- OUTSIDE RECORDS SUMMARY | 2024-08-08 15:50 | XMS_ITS | Encounter Summary ---
Author Organization [facility] Address [address] [place] [address] Care Team Providers Care Power Engineer Name Role Phone Caitlyn Bowie MD Primary Care Provider +1- [phone] Encounter Details Date Type Department Care Team (Late st Contact Info) Description 09/16/2020 Scanned Document [facility] Health Information Management [address] [place] [address] External, Provider Social History Tobacco Use Types [...] [facility] at [facility] 240 [facility] Building [address] [place], [place] [phone] Ronald Mills MD [address] [place] [address] [address]1 [place] [address] documented as of this encounter Procedures Procedure [...] documented as of this encounter Care Teams Power Engineer Relationship Specialty Start Date End Date Caitlyn Bowie MD [address] [address] PCP - General Internal Medicine 05/06/21 documented as of this encounter
--- OUTSIDE RECORDS SUMMARY | 2024-08-08 15:50 | XMS_ITS | Encounter Summary ---
Author Organization [facility] Address [address] [place] [address] Care Team Providers Care Tap Out Operator Name Role Phone Caitlyn Bowie MD Primary Care Provider +1- [phone] Encounter Details Date Type Department Care Team (Late st Contact Info) Description 08/29/2019 Scanned Document Cancer Center at [address] [address] External, Provider Social History Tobacco Use Types [...] at [facility] 240 [facility] Building [address] [place], [place] [address] Ronald Mills MD [address] [place] [address] [address]1 [place] [address] documented as of this encounter [...] End Date Caitlyn Bowie MD 3400 [facility] 1 [place] [address] PCP - General Internal Medicine 05/06/21 Henry Kelly MD Pulmonary Department 175 [facility], [address] [place] [address] Physician Pulmonary Disease 09/06/17 06/22/20 documented as of this encounter
--- OUTSIDE RECORDS SUMMARY | 2024-08-08 15:50 | XMS_ITS | Encounter Summary ---
Author Organization [facility] and [facility] Address [address] [place] [address] Care Team Providers Care Post Manager Name Role Phone Caitlyn Bowie MD Primary Care Provider +1- [phone] Encounter Details Date Type Department Care Team (Late st Contact Info) Description 09/07/2020 Scanned Document Cardiovascular Medicine at [address] [place] [phone] Norma Renee MD [address] [place] [phone] Social History Tobacco Use Types Packs/Day Years [...] PM EDT Telemedicine Cancer Center at [address] [place] [address] Ronald Mills MD [address] [place] [address] [address]1 [place] [address] documented as of this encounter Visit Diagnoses Not on filedocumented in this encounter Additional Health Concerns Infection Onset Date Last Indicated Resolved Time COVID-19 03/05/2022 03/05/2022 03/15/2022 7:18 PM EDT Assessment Noted Time PHQ-9 Depression Total Score: 2 11/07/19 19 2:06 PM EDT documented as of this encounter Care Teams Post Manager Relationship Specialty Start Date End Date Caitlyn Bowie MD [address] [address] PCP - General Internal Medicine 05/06/21 documented as of this encounter
--- OUTSIDE RECORDS SUMMARY | 2024-08-08 15:50 | XMS_ITS | Encounter Summary ---
Author Organization [facility] and [facility] Address [address] [place] [address] Care Team Providers Care Welt Sewer Name Role Phone Caitlyn Bowie MD Primary Care Provider +1- [phone] Encounter Details Date Type Department Care Team (Late Contact Info) Description 09/09/2020 Scanned Document [facility] Health Information Management [address] [place] [address] External, Provider Social History Tobacco Use Types [...] Cancer Center at [facility] 240 [facility] Building [address] [place], [place] [phone] Ronald Mills MD [address] [place] [address] [address]1 [place] [address] documented as of this encounter [...] documented as of this encounter Care Teams Welt Sewer Relationship Specialty Start Date End Date Caitlyn Bowie MD [address] [address] PCP - General Internal Medicine 05/06/21 documented as of this encounter
--- OUTSIDE RECORDS SUMMARY | 2024-08-08 15:50 | XMS_ITS | Encounter Summary ---
Author Organization [facility] Address [address] [place] [address] Care Team Providers Care Strategic Communications Specialist Name Role Phone Victorino Martin MD Primary Care Provider UnavailSharon Kimbrough Primary Care Provider Unava ilable Brennan Burnett MD Primary Care Provider Unavailab Hayden Montes MD Unavailable [phone] Pallavi Flood NP Unavailable +1- [phone] Caitlyn Bowie MD Primary Care Provider Unava ilable Reason for Visit * Reason Onset Date Comments Orders Call 07/30/2018 ultrasound Encounter Details Date Type Department Care Team Description 07/30/2018 Telephone Pulmonology - [address] [place] [address] Henry Kelly MD Orders Call (ultrasound) Social History Tobacco Use Types Packs/Day Years [...] Encounter - Nasima Sr M.A. - 07/30/2018 3:54 PM EST Faxed order to [place]. * Telephone Encounter - Paola Collier - 07/30/2018 2:04 PM EST Sydnee with ultrasound indicated they have a patient at their location to get an ultrasound of arm and they have no order. Please fax order to [phone]. documented in this encounter Plan of Treatment Not on file documented as of this encounter Visit Diagnoses Not on filedocumented in this encounter Care Teams Strategic Communications Specialist Relationship Specialty Start Date End Date Victorino Martin MD PCP - General Internal Medicine 12/21/17 08/01/18 Sharon Vides PCP - General Internal Medicine 08/02/18 05/26/20 Brennan Burnett MD PCP - General Internal Medicine 05/27/20 12/07/21 Caitlyn Bowie MD [address] [place] [address] PCP - General Internal Medicine 12/08/21 Hayden Shah MD [address] [place] [address] Specialist Cardiovascular Disease 09/01/20 Pallavi Flood NP [address] [place] [address] Cardiology 09/01/20 documented as of this encounter
--- OUTSIDE RECORDS SUMMARY | 2024-08-08 15:50 | XMS_ITS | Encounter Summary ---
Author Organization [facility] Address [address] [place] [address] Care Team Providers Care Director Toxicology Name Role Phone Caitlyn Bowie MD Primary Care Provider +1- [phone] Encounter Details Date Type Department Care Team (Late st Contact Info) Description 07/01/2019 Scanned Document Onco-Oncology Program at [address] [place] [address] Norma Renee MD [address] [place] [address] 2 [place] [phone] Social History Tobacco Use Types Packs/Day Years [...] 1:00 PM EDT Telemedicine Cancer Center at [address] [place], [place] [phone] Ronald Mills MD 240 [facility] A1 [place] [address] documented as of this encounter Visit Diagnoses Not on filedocumented in this encounter Additional Health Concerns Infection Onset Date Last Indicated Resolved Time COVID-19 03/05/2022 03/05/2022 03/15/2022 7:18 PM EDT Assessment Noted Time PHQ-9 Depression Total Score: 2 11/07/19 19 2:06 PM EDT documented as of this encounter Care Teams Director Toxicology Relationship Specialty Start Date End Date Caitlyn Bowie MD 3400 [facility] 1 [place] [address] PCP - General Internal Medicine 05/06/21 Henry Kelly MD Pulmonary Department 175 [facility], [address] [place] [address] Physician Pulmonary Disease 09/06/17 06/22/20 documented as of this encounter
--- OUTSIDE RECORDS SUMMARY | 2024-08-08 15:50 | XMS_ITS | Encounter Summary ---
Author Organization [facility] and [facility] Address [address] [place] [address] Care Team Providers Care Windows Migration Technician Name Role Phone Caitlyn Bowie MD Primary Care Provider +1- [phone] Encounter Details Date Type Department Care Team (Late st Contact Info) Description 09/16/2020 Scanned Document [facility] Health Information Management [address] [place] [address] External, Provider Social History Tobacco Use Types [...] Center at [facility] 240 [facility] Building [address] [place], [place] [address] Ronald Mills MD [address] [place] [address] [address]1 [place] [address] documented as of this encounter [...] documented as of this encounter Care Teams Windows Migration Technician Relationship Specialty Start Date End Date Caitlyn Bowie MD [address] [address] PCP - General Internal Medicine 05/06/21 documented as of this encounter
--- OUTSIDE RECORDS SUMMARY | 2024-08-08 15:50 | XMS_ITS | Encounter Summary ---
Author Organization [facility] Address [address] [place] [address] Care Team Providers Care Photographer Still Name Role Phone Caitlyn Bowie MD Primary Care Provider +1- [phone] Encounter Details Date Type Department Care Team (Late st Contact Info) Description 04/18/2013 Documentation Hematology Program at [address] [address] Isis Ragland RN Social History Tobacco Use [...] at [facility] 240 [facility] Building [address] [place], [place] [phone] Ronald Mills MD 240 [facility] A1 [place] [address] documented as of this encounter Visit Diagnoses Not on filedocumented in this encounter Additional Health Concerns Infection Onset Date Last Indicated Resolved Time COVID-19 03/05/2022 03/05/2022 03/15/2022 7:18 PM EDT documented as of this encounter Care Teams Photographer Still Relationship Specialty Start Date End Date Caitlyn Bowie MD 3400 [facility] 1 [place] [address] PCP - General Internal Medicine 05/06/21 Henry Kelly MD Pulmonary Department 175 [facility], [address] [place] [address] Physician Pulmonary Disease 09/06/17 06/22/20 documented as of this encounter
--- OUTSIDE RECORDS SUMMARY | 2024-08-08 15:50 | XMS_ITS | Encounter Summary ---
Author Organization [facility] Address [address] [place] [address] Care Team Providers Care Emt I/99 Name Role Phone Victorino Martin MD Primary Care Provider UnavailSharon Kimbrough Primary Care Provider Unava ilable Brennan Burnett MD Primary Care Provider Unavailab Hayden Montes MD Unavailable [phone] Pallavi Flood NP Unavailable +1- [phone] Caitlyn Bowie MD Primary Care Provider Unava shenaable Reason for Visit * Reason Onset Date Comments hospital follow up 07/30/2018 Encounter Details Date Type Department Care Team Description 07/30/2018 Telephone Pulmonology - [address] [place] [address] Henry Kelly MD hospital follow [...] 1:10 PM EST Patient was admitted into [facility] with a d/c of Monday. The patient was admitted for Pnemonia and she has a blood clot in the left arm vein which is very painful. She would like to be seen today, is there any way you can fit her in today. Please call the patient at [phone]. documented in this encounter Plan of Treatment Not on file documented as of this encounter Visit Diagnoses Not on filedocumented in this encounter Care Teams Emt I/99 Relationship Specialty Start Date End Date Victorino Martin MD PCP - General Internal Medicine 12/21/17 08/01/18 Sharon Vides PCP - General Internal Medicine 08/02/18 05/26/20 Brennan Burnett MD PCP - General Internal Medicine 05/27/20 12/07/21 Caitlyn Bowie MD [address] [place] [address] PCP - General Internal Medicine 12/08/21 Hayden Shah MD [address] [place] [phone] Specialist Cardiovascular Disease 09/01/20 Pallavi lFood NP [address] [place] [address] Cardiology 09/01/20 documented as of this encounter
--- OUTSIDE RECORDS SUMMARY | 2024-08-08 15:50 | XMS_ITS | Encounter Summary ---
Author Organization [facility] Address [address] [place] [address] Care Team Providers Care V/Stol Landing Signal Officer Name Role Phone Caitlyn Bowie MD Primary Care Provider +1- [phone] Encounter Details Date Type Department Care Team (Late st Contact Info) Description 12/16/2016 Scanned Document [facility] Health Information Management [address] [place] [address] External, Provider Social History Tobacco Use Types [...] Center at [facility] 240 [facility] Building [address] [place], [place] [phone] Ronald Mills MD 240 [facility] Max [address] [place] [address] documented as of this encounter [...] documented as of this encounter Care Teams V/Stol Landing Signal Officer Relationship Specialty Start Date End Date Caitlyn Bowie MD 3400 [facility] 1 [place] [address] PCP - General Internal Medicine 05/06/21 Henry Kelly MD Pulmonary Department 175 [facility], [address] [place] [address] Physician Pulmonary Disease 09/06/17 06/22/20 documented as of this encounter
--- OUTSIDE RECORDS SUMMARY | 2024-08-08 15:50 | XMS_ITS | Encounter Summary ---
Author Organization [facility] Address [address] [place] [address] Care Team Providers Care Ward Helper Name Role Phone Caitlyn Bowie MD Primary Care Provider +1- [phone] Encounter Details Date Type Department Care Team (Late st Contact Info) Description 08/29/2019 Scanned Document Cancer Center at [address] [address] External, Provider Social History Tobacco Use Types [...] – [facility] [address] [facility] [address] [place], [place] [id number] Ronald Mills MD [address] [place] [address] [address] [place] [address] documented as of this encounter [...] documented as of this encounter Care Teams Ward Helper Relationship Specialty Start Date End Date Caitlyn Bowie MD [address] [facility] 1 [place] [address] PCP - General Internal Medicine 05/06/21 Henry Kelly MD Pulmonary Department 175 [facility], [address] [place] [address] Physician Pulmonary Disease 09/06/17 06/22/20 documented as of this encounter
--- OUTSIDE RECORDS SUMMARY | 2024-08-08 15:50 | XMS_ITS | Encounter Summary ---
Author Organization [facility] Address [address] [place] [address] Care Team Providers Care Hvac Service Manager Name Role Phone Victorino Martin MD Primary Care Provider Sharon Odonnell Primary Care Provider Brennan Castro MD Primary Care Provider Unavailab Hayden Montes MD Unavailable [phone] Pallavi Flood NP Unavailable [phone]- [phone] Caitlyn Bowie MD Primary Care Provider Johnathon shaver Encounter Details Date Type Department Care Team Description 07/12/2018 Orders Only Pulmonology - [address] [place] [address] Henry Kelly MD Social History [...] on filedocumented in this encounter Care Teams Hvac Service Manager Relationship Specialty Start Date End Date Victorino Martin MD PCP - General Internal Medicine 12/21/17 08/01/18 Sharon Vides PCP - General Internal Medicine 08/02/18 05/26/20 Brennan Burnett MD PCP - General Internal Medicine 05/27/20 12/07/21 Caitlyn Bowie MD [address] [place] [address] PCP - General Internal Medicine 12/08/21 Hayden Shah MD [address] [place], [place] [phone] Specialist Cardiovascular Disease 09/01/20 Pallavi Flood NP [address] [place] [address] Cardiology 09/01/20 documented as of this encounter
--- OUTSIDE RECORDS SUMMARY | 2024-08-08 15:50 | XMS_ITS | Encounter Summary ---
Author Organization [facility] and [facility] Address [address] [place] [address] Care Team Providers Care Ic Design Engineer Name Role Phone Caitlyn Bowie MD Primary Care Provider [phone]- [phone] Encounter Details Date Type Department Care Team (Latest Contact Info) Description 04/15/2013 Transcribed Orders [facility] [address] [place] [address] Tian Atwood MD [address] [facility] 102 [place] [address] Unspecified hypothyroidism (Primary Dx) Social [...] Center at [facility] 240 [facility] [address] [place] [address] Ronald Mills MD 240 [facility] A1 [place] [address] documented as of this encounter Results * Copper, serum total (YH) (04/15/2013 4:31 PM EDT) Copper, Serum Total SEE BELOW [facility] Comment: Test ?Result ? Flag ??Unit ?RefValue Copper, S ? 1.35 ? mcg/mL ??0.75-1.45 04/15/2013 4:31 PM EDT us Tian Atwood MD LAB BLOOD ORDERABLES Final R esult Performing Organization Address City/State/[facility] Co de Phone Number [facility] [address] [place] [address] documented in this encounter Visit Diagnoses Diagnosis Unspecified hypothyroidism- Primary documented in this encounter Additional Health Concerns Infection Onset Date Last Indicated Resolved Time COVID-19 03/05/2022 03/05/2022 03/15/2022 7:18 PM EDT documented as of this encounter Care Teams Ic Design Engineer Relationship Specialty Start Date End Date Caitlyn Bowie MD 3400 [facility] 1 [place] [address] PCP - General Internal Medicine 05/06/21 Henry Kelly MD Pulmonary Department 175 [facility], [address] [place] [address] Physician Pulmonary Disease 09/06/17 06/22/20 documented as of this encounter
--- OUTSIDE RECORDS SUMMARY | 2024-08-08 15:50 | XMS_ITS | Encounter Summary ---
Author Organization [facility] Address [address] [place] [address] Care Team Providers Care Crisis Manager Name Role Phone Victorino Martin MD Primary Care Provider Sharon Odonnell Primary Care Provider Brennan Castro MD Primary Care Provider UnavailHayden Fernandez MD Unavailable [phone] Pallavi Flood NP Unavailable [phone]- [phone] Caitlyn Bowie MD Primary Care Provider Johnathon shaver Encounter Details Date Type Department Care Team Description 07/23/2018 [facility] Internal Medicine [address], [address] [place] [address] Henry Kelly MD Social History Tobacco Use [...] on filedocumented in this encounter Care Teams Crisis Manager Relationship Specialty Start Date End Date Victorino Martin MD PCP - General Internal Medicine 12/21/17 08/01/18 Sharon Vides PCP - General Internal Medicine 08/02/18 05/26/20 Brennan Burnett MD PCP - General Internal Medicine 05/27/20 12/07/21 Caitlyn Bowie MD [address] [place] [address] PCP - General Internal Medicine 12/08/21 Hayden Shah MD [address] [place] [address] Specialist Cardiovascular Disease 09/01/20 Pallavi Flood NP [address] [place] [address] Cardiology 09/01/20 documented as of this encounter
--- OUTSIDE RECORDS SUMMARY | 2024-08-08 15:50 | XMS_ITS | Encounter Summary ---
Author Organization [facility] Address [address] [place] [address] Care Team Providers Care Regulatory Affairs Director Name Role Phone Caitlyn Bowie MD Primary Care Provider +1- [phone] Encounter Details Date Type Department Care Team (Late st Contact Info) Description 01/28/2013 Scanned Document Thoracic Oncology Program at [address] [address] Solo Henry MD [address] [place] [address] Social History Tobacco Use Types Packs/Day [...] Telemedicine Cancer Center at [facility] 240 [facility] Building [address] [place], [place] [address] Ronald Mills MD 240 [facility] Max [address] [place] [address] documented as of this encounter Visit Diagnoses Not on filedocumented in this encounter Additional Health Concerns Infection Onset Date Last Indicated Resolved Time COVID-19 03/05/2022 03/05/2022 03/15/2022 7:18 PM EDT documented as of this encounter Care Teams Regulatory Affairs Director Relationship Specialty Start Date End Date Caitlyn Bowie MD 3400 [facility] Max 1 [place] [address] PCP - General Internal Medicine 05/06/21 Henry Kelly MD Pulmonary Department 175 [facility], [address] [place] [address] Physician Pulmonary Disease 09/06/17 06/22/20 documented as of this encounter
--- OUTSIDE RECORDS SUMMARY | 2024-08-08 15:50 | XMS_ITS | Encounter Summary ---
Author Organization [facility] and [facility] Address [address] [place] [address] Care Team Providers Care Strategic Solutions Consultant Name Role Phone Caitlyn Bowie MD Primary Care Provider +1- [phone] Encounter Details Date Type Department Care Team (Late st Contact Info) Description 07/12/2019 Scanned Document Onco-Oncology Program at [address] [place] [address] Norma Renee MD [address] [place] [address] 2 [place] [address] Social History Tobacco Use Types [...] PM EDT Telemedicine Cancer Center at [address] [place], [place] [address] Ronald Mills MD 240 [facility] A1 [place] [address] documented as of this encounter Visit Diagnoses Not on filedocumented in this encounter Additional Health Concerns Infection Onset Date Last Indicated Resolved Time COVID-19 03/05/2022 03/05/2022 03/15/2022 7:18 PM EDT Assessment Noted Time PHQ-9 Depression Total Score: 2 11/07/19 19 2:06 PM EDT documented as of this encounter Care Teams Strategic Solutions Consultant Relationship Specialty Start Date End Date Caitlyn Bowie MD 3400 [facility] 1 [place] [address] PCP - General Internal Medicine 05/06/21 Henry Kelly MD Pulmonary Department 175 [facility], [address] [place] [address] Physician Pulmonary Disease 09/06/17 06/22/20 documented as of this encounter
--- OUTSIDE RECORDS SUMMARY | 2024-08-08 15:50 | XMS_ITS | Encounter Summary ---
Author Organization [facility] Address [address] [place] [address] Care Team Providers Care Wrapping Clerk Name Role Phone Victorino Martin MD Primary Care Provider UnavailSharon Kimbrough Primary Care Provider Unava ilable Brennan Burnett MD Primary Care Provider Unavailab Hayden Montes MD Unavailable [phone] Pallavi Flood NP Unavailable [phone]- [phone] Caitlyn Bowie MD Primary Care Provider Unava chhaya Reason for Visit * Reason Comments E-prescribe Rx Request Encounter Details Date Type Department Care Team Description 07/01/2018 Refill Pulmonology [address] [place] [address] Henry Kelly MD E-prescribe Rx [...] * Telephone Encounter - Daija Dale - 07/02/2018 7:32 AM EST Patient would like script to be: E-PRESCRIBED/FAXED TO PHARMACY WHEN WAS THE PATIENT'S LAST APPOINTMENT WITH THE PRESCRIBING PROVIDER? 06/22/2018 Does patient have an upcoming appointment? Yes 09/03/2018 (THE MEDICATION REQUESTED IS ON THE MED LIST ABOVE) All of the medications requested were on the CURRENT MEDS list Did you check the Pharmacy information above?: YES Patient wants: 30 -day supply Is this a mail order prescription request ? NO Patients current insurance carrier is: [place] / [place] / Product Type: MEDICARE [id number] documented in this encounter Plan of Treatment Not on file documented as of this encounter Visit Diagnoses Not on filedocumented in this encounter Care Teams Wrapping Clerk Relationship Specialty Start Date End Date Victorino Martin MD PCP - General Internal Medicine 12/21/17 08/01/18 Sharon Vides PCP - General Internal Medicine 08/02/18 05/26/20 Brennan Burnett MD PCP - General Internal Medicine 05/27/20 12/07/21 Caitlyn Bowie MD [address] [place] [address] PCP - General Internal Medicine 12/08/21 Hayden Shah MD [address] [place] [address] Specialist Cardiovascular Disease 09/01/20 [place], Pallavi Day, BASKET BRAIDER [address] [place] [address] Cardiology 09/01/20 documented as of this encounter
--- OUTSIDE RECORDS SUMMARY | 2024-08-08 15:50 | XMS_ITS | Encounter Summary ---
Author Organization [facility] and [facility] Address [address] [place] [address] Care Team Providers Care Balance Wheel Motion Inspector Name Role Phone Caitlyn Bowie MD Primary Care Provider +1- [phone] Encounter Details Date Type Department Care Team (Late st Contact Info) Description 12/16/2016 Scanned Document [facility] Health Information Management [address] [place] [address] External, Provider Social History Tobacco Use Types [...] Healthcare Services – [facility] 240 [facility] Building [address] [place], [place] [phone] Ronald Mills MD 240 [facility] Max [address] [place] [address] documented as of this encounter [...] documented as of this encounter Care Teams Balance Wheel Motion Inspector Relationship Specialty Start Date End Date Caitlyn Bowie MD [address] [address] PCP - General Internal Medicine 05/06/21 Henry Kelly MD Pulmonary Department 175 [facility], [address] [place] [address] Physician Pulmonary Disease 09/06/17 06/22/20 documented as of this encounter
--- OUTSIDE RECORDS SUMMARY | 2024-08-08 15:50 | XMS_ITS | Encounter Summary ---
Author Organization [facility] and [facility] Address [address] [place] [address] Care Team Providers Care Addiction Nurse Name Role Phone Caitlyn Bowie MD Primary Care Provider +1- [phone] Encounter Details Date Type Department Care Team (Late st Contact Info) Description 06/21/2012 Abstract Head & Neck Cancers Program at [address] [address] Mikel Lloyd MD [address] [place] [phone] (Fax) Social History Tobacco Use Types Packs/Day [...] Center at [facility] 240 [facility] Building [address] [place] [address] Ronald Mills MD 240 [facility] Max [address] [place] [address] documented as of this encounter Visit Diagnoses Not on filedocumented in this encounter Additional Health Concerns Infection Onset Date Last Indicated Resolved Time COVID-19 03/05/2022 03/05/2022 03/15/2022 7:18 PM EDT documented as of this encounter Care Teams Addiction Nurse Relationship Specialty Start Date End Date Caitlyn Bowie MD 3400 [facility] 1 [place] [address] PCP - General Internal Medicine 05/06/21 Henry Kelly MD Pulmonary Department [address] [place] [address], [address] [place] [address] Physician Pulmonary Disease 09/06/17 06/22/20 documented as of this encounter
--- OUTSIDE RECORDS SUMMARY | 2024-08-08 15:50 | XMS_ITS | Encounter Summary ---
Author Organization [facility] and [facility] Address [address] [place] [address] Care Team Providers Care U.[place]. Senator Name Role Phone Caitlyn Bowie MD Primary Care Provider +1- [phone] Encounter Details Date Type Department Care Team (Late st Contact Info) Description 11/29/2019 Scanned Document [facility] Health Information Management [address] [place] [address] External, Provider Social History Tobacco Use Types [...] at [facility] 240 [facility] Building [address] [place], [place] [phone] Ronald Mills MD [address] [place] [address] [address] [place] [address] documented as of this encounter [...] documented as of this encounter Care Teams U.[place]. Senator Relationship Specialty Start Date End Date Caitlyn Bowie MD 3400 [facility] 1 [place] [address] PCP - General Internal Medicine 05/06/21 Henry Kelly MD Pulmonary Department 175 [facility], [address] [place] [address] Physician Pulmonary Disease 09/06/17 06/22/20 documented as of this encounter
--- OUTSIDE RECORDS SUMMARY | 2024-08-08 15:50 | XMS_ITS | Encounter Summary ---
Author Organization [facility] and [facility] Address [address] [place] [address] Care Team Providers Care College Scouting Coordinator Name Role Phone Caitlyn Bowie MD Primary Care Provider +1- [phone] Encounter Details Date Type Department Care Team (Late st Contact Info) Description 12/16/2016 Scanned Document [facility] Health Information Management [address] [place] [address] External, Provider Social History Tobacco Use Types [...] Center at [facility] 240 [facility] Building [address] [place], [place] [address] Ronald Mills MD 240 [facility] Max [address] [place] [address] documented as of this encounter [...] documented as of this encounter Care Teams College Scouting Coordinator Relationship Specialty Start Date End Date Caitlyn Bowie MD 3400 [facility] 1 [place] [address] PCP - General Internal Medicine 05/06/21 Henry Kelly MD Pulmonary Department 175 [facility], [address] [place] [address] Physician Pulmonary Disease 09/06/17 06/22/20 documented as of this encounter
--- OUTSIDE RECORDS SUMMARY | 2024-08-08 15:51 | XMS_ITS | Encounter Summary ---
Author Organization [facility] Address [address] [place] [address] Care Team Providers Care Liner Man Name Role Phone Victorino Martin MD Primary Care Provider UnavailSharon Kimbrough Primary Care Provider Unava ilable Brennan Burnett MD Primary Care Provider Unavailab Hayden Montes MD Unavailable [phone] Pallavi Flood NP Unavailable [phone]- [phone] Caitlyn Bowie MD Primary Care Provider Unava chhaya Reason for Visit * Reason Comments E-prescribe Rx Request Encounter Details Date Type Department Care Team Description 04/26/2018 Refill Pulmonology [address] [place] [address] Henry Kelly MD E-prescribe Rx [...] NO Patients current insurance carrier is: Payor: MEDICARE-[employer] / Plan[place] / Product Type: MEDICARE [id number] documented in this encounter Plan of Treatment Not on file documented as of this encounter Visit Diagnoses Not on filedocumented in this encounter Care Teams Liner Man Relationship Specialty Start Date End Date Victorino Martin MD PCP - General Internal Medicine 12/21/17 08/01/18 Sharon Vides PCP - General Internal Medicine 08/02/18 05/26/20 Brennan Burnett MD PCP - General Internal Medicine 05/27/20 12/07/21 Caitlyn Bowie MD [address] [place] [address] PCP - General Internal Medicine 12/08/21 Hayden Shah MD [address] [place] [id number] Specialist Cardiovascular Disease 09/01/20 Pallavi Flood NP [address] [place] [address] Cardiology 09/01/20 documented as of this encounter
--- OUTSIDE RECORDS SUMMARY | 2024-08-08 15:51 | XMS_ITS | Encounter Summary ---
Author Organization [facility] Address [address] [place] [address] Care Team Providers Care Technical Planner Name Role Phone Caitlyn Bowie MD Primary Care Provider +1- [phone] Encounter Details Date Type Department Care Team (Late st Contact Info) Description 03/01/2017 Scanned Document Onco-Oncology Program at [address] [place] [address] Norma Renee MD [address] [place] [address] 2 [place] [phone] Social History Tobacco Use Types Packs/Day Years [...] 1:00 PM EDT Telemedicine Cancer Center at [address] [place] [address] Ronald Mills MD 240 [facility] A1 [place] [address] documented as of this encounter Visit Diagnoses Not on filedocumented in this encounter Additional Health Concerns Infection Onset Date Last Indicated Resolved Time COVID-19 03/05/2022 03/05/2022 03/15/2022 7:18 PM EDT documented as of this encounter Care Teams Technical Planner Relationship Specialty Start Date End Date Caitlyn Bowie MD 3400 [facility] Max 1 [place] [address] PCP - General Internal Medicine 05/06/21 Henry Kelly MD Pulmonary Department 175 [facility], [address] [place] [address] Physician Pulmonary Disease 09/06/17 06/22/20 documented as of this encounter
--- OUTSIDE RECORDS SUMMARY | 2024-08-08 15:51 | XMS_ITS | Encounter Summary ---
Author Organization [facility] and [facility] Address [address] [place] [address] Care Team Providers Care Medicaid Specialist Name Role Phone Caitlyn Bowie MD Primary Care Provider +1- [phone] Encounter Details Date Type Department Care Team (Late st Contact Info) Description 03/11/2021 Scanned Document INTERFACE DEFAULT [address] [place] [address] System, Provider Not In Social History Tobacco [...] [facility] 240 [facility] Building [address] [place], [place] [address] Ronald Mills MD [address] [place] [address] [address] [place] [address] documented as of this encounter [...] documented as of this encounter Care Teams Medicaid Specialist Relationship Specialty Start Date End Date Caitlyn Bowie MD [facility] [address] [address] PCP - General Internal Medicine 05/06/21 documented as of this encounter
--- OUTSIDE RECORDS SUMMARY | 2024-08-08 15:51 | XMS_ITS | Encounter Summary ---
Author Organization [facility] Address [address] [place] [address] Care Team Providers Care Tool Room Attendant Name Role Phone Victorino Martin MD Primary Care Provider Sharon Odonnell Primary Care Provider Brennan Castro MD Primary Care Provider Unavailab Hayden Montes MD Unavailable [phone] Pallavi Flood NP Unavailable [phone]- [phone] Caitlyn Bowie MD Primary Care Provider Johnathon shaver Encounter Details Date Type Department Care Team Description 02/06/2018 Telephone Pulmonology - [address] [place] [address] Henry Kelly MD Social History [...] on filedocumented in this encounter Care Teams Tool Room Attendant Relationship Specialty Start Date End Date Victorino Martin MD PCP - General Internal Medicine 12/21/17 08/01/18 Sharon Vides PCP - General Internal Medicine 08/02/18 05/26/20 Brennan Burnett MD PCP - General Internal Medicine 05/27/20 12/07/21 Caitlyn Bowie MD [address] [place] [address] PCP - General Internal Medicine 12/08/21 Hayden Shah MD [address] [place] [address] Specialist Cardiovascular Disease 09/01/20 Pallavi Flood NP [address] [place] [address] Cardiology 09/01/20 documented as of this encounter
--- OUTSIDE RECORDS SUMMARY | 2024-08-08 15:51 | XMS_ITS | Encounter Summary ---
Author Organization [facility] Address [address] [place] [address] Care Team Providers Care Conveyor Operator Name Role Phone Victorino Martin MD Primary Care Provider Sharon Odonnell Primary Care Provider Brennan Castro MD Primary Care Provider UnavailHayden Fernandez MD Unavailable [phone] Pallavi Flood NP Unavailable [phone]- [phone] Caitlyn Bowie MD Primary Care Provider Johnathon shaver Encounter Details Date Type Department Care Team Description 01/22/2018 Derrick Hand Report Medical Records [address] [place] [address] Abstract, Provider Social History Tobacco Use Types [...] on filedocumented in this encounter Care Teams Conveyor Operator Relationship Specialty Start Date End Date Victorino Martin MD PCP - General Internal Medicine 12/21/17 08/01/18 Sharon Vides PCP - General Internal Medicine 08/02/18 05/26/20 Brennan Burnett MD PCP - General Internal Medicine 05/27/20 12/07/21 Caitlyn Bowie MD [address] [place] [address] PCP - General Internal Medicine 12/08/21 Hayden Shah MD [address] [place] [phone] Specialist Cardiovascular Disease 09/01/20 Pallavi Flood NP [address] [place], [place] [id number] Cardiology 09/01/20 documented as of this encounter
--- OUTSIDE RECORDS SUMMARY | 2024-08-08 15:51 | XMS_ITS | Encounter Summary ---
Author Organization [facility] and [facility] Address [address] [place] [address] Care Team Providers Care Saturator Name Role Phone Caitlyn Bowie MD Primary Care Provider +1- [phone] Encounter Details Date Type Department Care Team (Late st Contact Info) Description 04/11/2021 Scanned Document INTERFACE DEFAULT [address] [place] [address] System, Provider Not In Social History Tobacco [...] Cancer Center at [facility] 240 [facility] Building [address] [place], [place] [address] Ronald Mills MD [address] [place] [address] [address] [place] [address] documented as of this encounter [...] documented as of this encounter Care Teams Saturator Relationship Specialty Start Date End Date Caitlyn Bowie MD [address] [address] PCP - General Internal Medicine 05/06/21 documented as of this encounter
--- OUTSIDE RECORDS SUMMARY | 2024-08-08 15:51 | XMS_ITS | Encounter Summary ---
Author Organization [facility] and [facility] Address [address] [place] [address] Care Team Providers Care Boat Canvas Maker And Installer Name Role Phone Caitlyn Bowie MD Primary Care Provider +1- [phone] Encounter Details Date Type Department Care Team (Late st Contact Info) Description 04/11/2021 Scanned Document [facility] Health Information Management [address] [place] [address] External, Provider Social History Tobacco Use Types [...] Telemedicine Cancer Center at [facility] [address] [facility] Building [address] [place], [place] [address] Ronald Mills MD [address] [place] [address] [address] [place] [address] documented as of this encounter Visit Diagnoses Not on filedocumented in this encounter Additional Health Concerns Infection Onset Date Last Indicated Resolved Time COVID-19 03/05/2022 03/05/2022 03/15/2022 7:18 PM EDT Assessment Noted Time PHQ-9 Depression Total Score: 2 11/07/19 19 2:06 PM EDT documented as of this encounter Care Teams Boat Canvas Maker And Installer Relationship Specialty Start Date End Date Caitlyn Bowie MD [address] [address] PCP - General Internal Medicine 05/06/21 documented as of this encounter
--- OUTSIDE RECORDS SUMMARY | 2024-08-08 15:51 | XMS_ITS | Encounter Summary ---
Author Organization [facility] and [facility] Address [address] [place] [address] Care Team Providers Care Planer Stone Name Role Phone Caitlyn Bowie MD Primary Care Provider +1- [phone] Encounter Details Date Type Department Care Team (Late st Contact Info) Description 03/24/2021 Scanned Document INTERFACE DEFAULT [address] [place] [address] System, Provider Not In Social History Tobacco [...] Cancer Center at [facility] [address] [facility] [address] [place] [address] Ronald Mills MD [address] [place] [address] [address] [place] [address] documented as of this encounter Visit Diagnoses Not on filedocumented in this encounter Additional Health Concerns Infection Onset Date Last Indicated Resolved Time COVID-19 03/05/2022 03/05/2022 03/15/2022 7:18 PM EDT Assessment Noted Time PHQ-9 Depression Total Score: 2 11/07/19 19 2:06 PM EDT documented as of this encounter Care Teams Planer Stone Relationship Specialty Start Date End Date Caitlyn Bowie MD [address] [address] PCP - General Internal Medicine 05/06/21 documented as of this encounter
--- OUTSIDE RECORDS SUMMARY | 2024-08-08 15:51 | XMS_ITS | Encounter Summary ---
Author Organization [facility] and [facility] Address [address] [place] [address] Care Team Providers Care Pickle Sorter Name Role Phone Caitlyn Bowie MD Primary Care Provider +1- [phone] Encounter Details Date Type Department Care Team (Late st Contact Info) Description 03/15/2021 Scanned Document INTERFACE DEFAULT [address] [place] [address] System, Provider Not In Social History Tobacco [...] at [facility] 240 [facility] Building [address] [place], [place] [address] Ronald Mills MD [address] [place] [address] [address] [place] [address] documented as of this encounter [...] documented as of this encounter Care Teams Pickle Sorter Relationship Specialty Start Date End Date Caitlyn Bowie MD [facility] [address] [address] PCP - General Internal Medicine 05/06/21 documented as of this encounter
--- OUTSIDE RECORDS SUMMARY | 2024-08-08 15:51 | XMS_ITS | Encounter Summary ---
Author Organization [facility] and [facility] Address [address] [place] [place] [address] Care Team Providers Care Spar Cap Beveler Name Role Phone Caitlyn Bowie MD Primary Care Provider +1- [phone] Encounter Details Date Type Department Care Team (Late st Contact Info) Description 08/21/2017 Scanned Document [facility] Health Information Management [address] [place] [address] External, Provider Social History Tobacco Use Types [...] at [facility] 240 [facility] Building [address] [place], [place] [address] Ronald Mills MD 240 [facility] [address] [place] [address] documented as of this encounter [...] documented as of this encounter Care Teams Spar Cap Beveler Relationship Specialty Start Date End Date Caitlyn Bowie MD 3400 [facility] 1 [place] [address] PCP - General Internal Medicine 05/06/21 Henry Kelly MD Pulmonary Department 175 [facility], [address] [place] [address] Physician Pulmonary Disease 09/06/17 06/22/20 documented as of this encounter
--- OUTSIDE RECORDS SUMMARY | 2024-08-08 15:51 | XMS_ITS | Encounter Summary ---
Author Organization [facility] and [facility] Address [address] [place] [address] Care Team Providers Care Drawing Tracer Name Role Phone Caitlyn Bowie MD Primary Care Provider +1- [phone] Encounter Details Date Type Department Care Team (Late st Contact Info) Description 04/21/2021 Scanned Document INTERFACE DEFAULT [address] [place] [address] System, Provider Not In Social History Tobacco [...] Telemedicine Cancer Center at [facility] 240 [facility] Building [address] [place], [place] [address] Ronald Mills MD [address] [place] [address] [address] [place] [address] documented as of this encounter [...] documented as of this encounter Care Teams Drawing Tracer Relationship Specialty Start Date End Date Caitlyn Bowie MD [facility] [address] [address] PCP - General Internal Medicine 05/06/21 documented as of this encounter
--- OUTSIDE RECORDS SUMMARY | 2024-08-08 15:51 | XMS_ITS | Encounter Summary ---
Author Organization [facility] and [facility] Address [address] [place] [address] Care Team Providers Care Second Vp Hr Assessment Name Role Phone Caitlyn Bowie MD Primary Care Provider +1- [phone] Encounter Details Date Type Department Care Team (Late st Contact Info) Description 04/26/2017 Scanned Document Cardiovascular Medicine at [address] [place] [address] System, Provider Not In Social History Tobacco [...] Center at [facility] 240 [facility] Building [address] [place], [place] [address] Ronald Mills MD 240 [facility] A1 [place] [address] documented as of this encounter [...] documented as of this encounter Care Teams Second Vp Hr Assessment Relationship Specialty Start Date End Date Caitlyn Bowie MD 3400 [facility] Max 1 [place] [address] PCP - General Internal Medicine 05/06/21 Henry Kelly MD Pulmonary Department 175 [facility] [place] [address] Physician Pulmonary Disease 09/06/17 06/22/20 documented as of this encounter
--- OUTSIDE RECORDS SUMMARY | 2024-08-08 15:51 | XMS_ITS | Encounter Summary ---
Author Organization [facility] and [facility] Address [address] [place] [address] Care Team Providers Care Naphtha Washing System Operator Name Role Phone Caitlyn Bowie MD Primary Care Provider +1- [phone] Encounter Details Date Type Department Care Team (Late st Contact Info) Description 04/10/2021 Scanned Document INTERFACE DEFAULT [address] [place] [address] System, Provider Not In Social History Tobacco [...] at [facility] 240 [facility] Building [address] [place] [address] Ronald Mills MD [address] [place] [address] [address] [place] [address] documented as of this encounter [...] documented as of this encounter Care Teams Naphtha Washing System Operator Relationship Specialty Start Date End Date Caitlyn Bowie MD [address] [address] PCP - General Internal Medicine 05/06/21 documented as of this encounter
--- OUTSIDE RECORDS SUMMARY | 2024-08-08 15:51 | XMS_ITS | Encounter Summary ---
Author Organization [facility] Address [address] [place] [address] Care Team Providers Care Sports Nutritionist Name Role Phone Sharon Vides Primary Care Provider Unava ilable Brennan Burnett MD Primary Care Provider Unavailab Hayden Montes MD Unavailable [phone] Pallavi Flood NP Unavailable +1- [phone] Caitlyn Bowie MD Primary Care Provider Unava ilable Reason for Visit * Reason Onset Date Comments other 12/13/2019 Encounter Details Date Type Department Care Team Description 12/13/2019 Telephone General Surgery [address] [address] Norma Mendoza MD [address] [place] [phone] other Social History Tobacco Use Types Packs/Day [...] Miscellaneous Notes * Telephone Encounter - Maryse Yo - 12/13/2019 10:19 AM EDT Pt called back- hasnt heard from anyone- talked to Criss/Maia Anne and put pt in with [facility]-- opening [id number]-- pt said very painful- possibly infected and cant wait till Tues to see Norma-- Is worried it will pop-- So this is all set * Telephone Encounter - Ed Hamlin - 12/13/2019 8:38 AM EDT Patient called in stating that a year ago she had an procedure done on a Hematoma. Patient states ayear later she's in excruciating pain and has also noticed a lump that seems to be filled with pus.Hematoma is located on the RT calf. documented in this encounter Plan of Treatment Not on file documented as of this encounter Visit Diagnoses Not on filedocumented in this encounter Care Teams Sports Nutritionist Relationship Specialty Start Date End Date Sharon Vides PCP - General Internal Medicine 08/02/18 05/26/20 Brennan Burnett MD PCP - General Internal Medicine 05/27/20 12/07/21 Caitlyn Bowie MD [address] [place] [address] PCP - General Internal Medicine 12/08/21 Hayden Shah MD [address] [place] [address] Specialist Cardiovascular Disease 09/01/20 Pallavi Flood NP [address] [place] [address] Cardiology 09/01/20 documented as of this encounter
--- OUTSIDE RECORDS SUMMARY | 2024-08-08 15:51 | XMS_ITS | Encounter Summary ---
Author Organization [facility] Address [address] [place] [address] Care Team Providers Care Final Assembly Inspector Name Role Phone Victorino Martin MD Primary Care Provider UnavailSharon Kimbrough Primary Care Provider Unava ilable Brennan Burnett MD Primary Care Provider Unavailab Hayden Montes MD Unavailable [phone] Pallavi Flood NP Unavailable +1- [phone] Caitlyn Bowie MD Primary Care Provider Unava chhaya Reason for Visit * Reason Onset Date Comments Faxed Refill 02/05/2018 Encounter Details Date Type Department Care Team Description 02/05/2018 Telephone Pulmonology - [address] [place] [address] Henry Kelly MD Faxed Refill Social History Tobacco Use Types Packs/Day Years [...] * Telephone Encounter - Megan Kae - 02/05/2018 11:55 AM EDT Patient would like script to be: E-PRESCRIBED/FAXED TO PHARMACY WHEN WAS THE PATIENT'S LAST APPOINTMENT WITH THE PRESCRIBING PROVIDER? 01/12/18 Does patient have an upcoming appointment? Yes (THE MEDICATION REQUESTED IS ON THE MED LIST ABOVE) All of the medications requested were on the CURRENT MEDS list Did you check the Pharmacy information above?: YES Patient wants: 90 -day supply Is this a mail order prescription request ? No Patients current insurance carrier is: Payor: MEDICARE-[employer] / Plan: MEDICARE[employer] / Product Type: MEDICARE [id number] documented in this encounter Plan of Treatment Not on file documented as of this encounter Visit Diagnoses Diagnosis Mixed simple and mucopurulent chronic bronchitis (HCC) Other chronic bronchitis documented in this encounter Care Teams Final Assembly Inspector Relationship Specialty Start Date End Date Victorino Martin MD PCP - General Internal Medicine 12/21/17 08/01/18 Sharon Vides PCP - General Internal Medicine 08/02/18 05/26/20 Brennan Burnett MD PCP - General Internal Medicine 05/27/20 12/07/21 Caitlyn Bowie MD [address] [place] [address] PCP - General Internal Medicine 12/08/21 Hayden Shah MD [address] [place] [address] Specialist Cardiovascular Disease 09/01/20 Pallavi Flood, ALON [address] [place] [address] Cardiology 09/01/20 documented as of this encounter
--- OUTSIDE RECORDS SUMMARY | 2024-08-08 15:51 | XMS_ITS | Encounter Summary ---
Author Organization [facility] Address [address] [place] [address] Care Team Providers Care Hris Administrator Name Role Phone Victorino Martin MD Primary Care Provider Sharon Odonnell Primary Care Provider Brennan Castro MD Primary Care Provider UnavailHayden Fernandez MD Unavailable [phone] Pallavi Flood NP Unavailable [phone]- [phone] Caitlyn Bowie MD Primary Care Provider Johnathon shaver Encounter Details Date Type Department Care Team Description 03/01/2018 Food Processing Plant Manager Report Medical Records [address] [place] [address] Renetta Lugo Np Social History Tobacco Use [...] on filedocumented in this encounter Care Teams Hris Administrator Relationship Specialty Start Date End Date Victorino Martin MD PCP - General Internal Medicine 12/21/17 08/01/18 Sharon Vides PCP - General Internal Medicine 08/02/18 05/26/20 Brennan Burnett MD PCP - General Internal Medicine 05/27/20 12/07/21 Caitlyn Bowie MD [address] [place] [address] PCP - General Internal Medicine 12/08/21 Hayden Shah MD [address] [place], [place] [address] Specialist Cardiovascular Disease 09/01/20 Pallavi Flood NP [address] [place] [id number] Cardiology 09/01/20 documented as of this encounter
--- OUTSIDE RECORDS SUMMARY | 2024-08-08 15:51 | XMS_ITS | Encounter Summary ---
Author Organization [facility] and [facility] Address [address] [place] [address] Care Team Providers Care Typewriter Tester Name Role Phone Caitlyn Bowie MD Primary Care Provider +1- [phone] Encounter Details Date Type Department Care Team (Late st Contact Info) Description 08/09/2017 Scanned Document Cardiovascular Medicine at [address] [place] [address] System, Provider Not In Social History Tobacco [...] Cancer Center at [facility] 240 [facility] [address] [place] [address] Ronald Mills MD [address] [facility] [address] [place] [address] documented as of this encounter [...] documented as of this encounter Care Teams Typewriter Tester Relationship Specialty Start Date End Date Caitlyn Bowie MD 3400 [facility] Max 1 [place] [address] PCP - General Internal Medicine 05/06/21 Henry Kelly MD Pulmonary Department 175 [facility], [address] [place] [address] Physician Pulmonary Disease 09/06/17 06/22/20 documented as of this encounter
--- OUTSIDE RECORDS SUMMARY | 2024-08-08 15:51 | XMS_ITS | Encounter Summary ---
Author Organization [facility] and [facility] Address [address] [place] [address] Care Team Providers Care Speeder Machine Operator Name Role Phone Caitlyn Bowie MD Primary Care Provider +1- [phone] Encounter Details Date Type Department Care Team (Late st Contact Info) Description 04/16/2021 Scanned Document INTERFACE DEFAULT [address] [place] [address] System, Provider Not In Social History Tobacco [...] Cancer Center at [facility] 240 [facility] [address] [place] [address] Ronald Mills MD [address] [place] [address] [address] [place] [address] documented as of this encounter [...] documented as of this encounter Care Teams Speeder Machine Operator Relationship Specialty Start Date End Date Caitlyn Bowie MD [facility] [address] [address] PCP - General Internal Medicine 05/06/21 documented as of this encounter
--- OUTSIDE RECORDS SUMMARY | 2024-08-08 15:51 | XMS_ITS | Encounter Summary ---
Author Organization [facility] and [facility] Address [address] [place] [address] Care Team Providers Care Entry Level Management Name Role Phone Caitlyn Bowie MD Primary Care Provider +1- [phone] Encounter Details Date Type Department Care Team (Late st Contact Info) Description 03/23/2021 Scanned Document INTERFACE DEFAULT [address] [place] [address] System, Provider Not In Social History Tobacco [...] [facility] 240 [facility] Building [address] [place] [address] Ronald Mills MD [address] [place] [address] [address] [place] [address] documented as of this encounter [...] documented as of this encounter Care Teams Entry Level Management Relationship Specialty Start Date End Date Caitlyn Bowie MD [address] [address] PCP - General Internal Medicine 05/06/21 documented as of this encounter
--- OUTSIDE RECORDS SUMMARY | 2024-08-08 15:51 | XMS_ITS | Encounter Summary ---
Author Organization [facility] Address [address] [place] [address] Care Team Providers Care Plant Senior Manager Name Role Phone Cristofer [place] MD Primary Care Provider Victorino Read MD Primary Care Provider UnavailSharon Kimbrough Primary Care Provider Unava ilBrennan Newman MD Primary Care Provider Unavailab Hayden Montes MD Unavailable [phone] Pallavi Flood NP Unavailable [phone]- [phone] Caitlyn Bowie MD Primary Care Provider Unava chhaya Encounter Details Date Type Department Care Team Description 06/12/2017 Transfer Records Medical Records [address] [place] [address] Abstract, Provider Social History Tobacco Use Types [...] on filedocumented in this encounter Care Teams Plant Senior Manager Relationship Specialty Start Date End Date Cristofer [place] MD PCP - General Internal Medicine 05/16/17 12/20/17 Victorino Martin MD PCP - General Internal Medicine 12/21/17 08/01/18 Sharon Vides PCP - General Internal Medicine 08/02/18 05/26/20 Brennan Burnett MD PCP - General Internal Medicine 05/27/20 12/07/21 Caitlyn Bowie MD [address] [place] [address] PCP - General Internal Medicine 12/08/21 Hayden Shah MD [address] [place], [place] [phone] Specialist Cardiovascular Disease 09/01/20 Pallavi Flood NP [address] [place], [place] [phone] Cardiology 09/01/20 documented as of this encounter
--- OUTSIDE RECORDS SUMMARY | 2024-08-08 15:51 | XMS_ITS | Encounter Summary ---
Author Organization [facility] and [facility] Address [address] [place] [address] Care Team Providers Care Developmental Mathematics Instructor Name Role Phone Caitlyn Bowie MD Primary Care Provider +1- [phone] Encounter Details Date Type Department Care Team (Late st Contact Info) Description 04/12/2021 Scanned Document INTERFACE DEFAULT [address] [place] [address] System, Provider Not In Social History Tobacco [...] [facility] 240 [facility] Building [address] [place], [place] [address] Ronald Mills MD [address] [place] [address] [address] [place] [address] documented as of this encounter [...] documented as of this encounter Care Teams Developmental Mathematics Instructor Relationship Specialty Start Date End Date Caitlyn Bowie MD [address] [address] PCP - General Internal Medicine 05/06/21 documented as of this encounter
--- OUTSIDE RECORDS SUMMARY | 2024-08-08 15:51 | XMS_ITS | Encounter Summary ---
Author Organization [facility] and [facility] Address [address] [place] [address] Care Team Providers Care Ornament Stapler Name Role Phone Caitlyn Bowie MD Primary Care Provider +1- [phone] Encounter Details Date Type Department Care Team (Late st Contact Info) Description 04/13/2021 Scanned Document INTERFACE DEFAULT [address] [place] [address] System, Provider Not In Social History Tobacco [...] at [facility] 240 [facility] Building [address] [place], [place] [address] Ronald Mills MD [address] [place] [address] [address] [place] [address] documented as of this encounter [...] documented as of this encounter Care Teams Ornament Stapler Relationship Specialty Start Date End Date Caitlyn Bowie MD [address] [address] PCP - General Internal Medicine 05/06/21 documented as of this encounter
--- OUTSIDE RECORDS SUMMARY | 2024-08-08 15:51 | XMS_ITS | Encounter Summary ---
Author Organization [facility] Address [address] [place] [address] Care Team Providers Care Retail Maintenance Technician Name Role Phone Cristofer [place] MD Primary Care Provider Victorino Read MD Primary Care Provider UnavailSharon Kimbrough Primary Care Provider Unava ilBrennan Newman MD Primary Care Provider Unavailab Hayden Montes MD Unavailable [phone] Pallavi Flood NP Unavailable [phone]- [phone] Caitlyn Bowie MD Primary Care Provider Unava chhaya Encounter Details Date Type Department Care Team Description 06/15/2017 Transfer Records Medical Records 4 [place] [address] Abstract, Provider Social History Tobacco Use Types [...] on filedocumented in this encounter Care Teams Retail Maintenance Technician Relationship Specialty Start Date End Date Cristofer [place] MD PCP - General Internal Medicine 05/16/17 12/20/17 Victorino Martin MD PCP - General Internal Medicine 12/21/17 08/01/18 Sharon Vides PCP - General Internal Medicine 08/02/18 05/26/20 Brennan Burnett MD PCP - General Internal Medicine 05/27/20 12/07/21 Caitlyn Bowie MD [address] [place] [address] PCP - General Internal Medicine 12/08/21 Hayden Shah MD [address] [place], [place] [address] Specialist Cardiovascular Disease 09/01/20 Pallavi Flood NP [address] [place], [place] [address] Cardiology 09/01/20 documented as of this encounter
--- OUTSIDE RECORDS SUMMARY | 2024-08-08 15:51 | XMS_ITS | Encounter Summary ---
Author Organization [facility] and [facility] Address [address] [place] [address] Care Team Providers Care Argon Tester Name Role Phone Caitlyn Bowie MD Primary Care Provider +1- [phone] Encounter Details Date Type Department Care Team (Late st Contact Info) Description 04/22/2021 Scanned Document INTERFACE DEFAULT [address] [place] [address] System, Provider Not In Social History Tobacco [...] Center at [facility] 240 [facility] Building [address] [place], [place] [address] Ronald Mills MD [address] [place] [address] [address] [place] [address] documented as of this encounter [...] documented as of this encounter Care Teams Argon Tester Relationship Specialty Start Date End Date Caitlyn Bowie MD [facility] [address] [address] PCP - General Internal Medicine 05/06/21 documented as of this encounter
--- OUTSIDE RECORDS SUMMARY | 2024-08-08 15:51 | XMS_ITS | Encounter Summary ---
Author Organization [facility] and [facility] Address [address] [place] [address] Care Team Providers Care Hydrotel Operator Name Role Phone Caitlyn Bowie MD Primary Care Provider [phone]- [phone] Encounter Details Date Type Department Care Team (Late st Contact Info) Description 03/22/2021 Scanned Document INTERFACE DEFAULT [address] [place] [address] System, Provider Not In Social History Tobacco [...] [facility] [address] [facility] [address] [place] [address] Ronald Mills MD [address] [place] [address] [address] [place] [address] documented as of this encounter Visit Diagnoses Not on filedocumented in this encounter Additional Health Concerns Infection Onset Date Last Indicated Resolved Time COVID-19 03/05/2022 03/05/2022 03/15/2022 7:18 PM EDT Assessment Noted Time PHQ-9 Depression Total Score: 2 11/07/19 19 2:06 PM EDT documented as of this encounter Care Teams Hydrotel Operator Relationship Specialty Start Date End Date Caitlyn Bowie MD [address] [address] PCP - General Internal Medicine 05/06/21 documented as of this encounter
--- OUTSIDE RECORDS SUMMARY | 2024-08-08 15:51 | XMS_ITS | Encounter Summary ---
Author Organization [facility] Address [address] [place] [address] Care Team Providers Care Outbound Sales Professional Name Role Phone Caitlyn Bowie MD Primary Care Provider +1- [phone] Encounter Details Date Type Department Care Team (Late st Contact Info) Description 02/21/2017 Scanned Document [facility] Health Information Management [address] [place] [address] External, Provider Social History Tobacco Use Types [...] at [facility] 240 [facility] [address] [place], [place] [id number] Ronald Mills MD 240 [facility] [address] [place] [address] documented as of this encounter [...] documented as of this encounter Care Teams Outbound Sales Professional Relationship Specialty Start Date End Date Caitlyn Bowie MD [address] [facility] [address] [place] [address] PCP - General Internal Medicine 05/06/21 Henry Kelly MD Pulmonary Department 175 [facility] [place] [address] Physician Pulmonary Disease 09/06/17 06/22/20 documented as of this encounter
--- OUTSIDE RECORDS SUMMARY | 2024-08-08 15:51 | XMS_ITS | Encounter Summary ---
Author Organization [facility] Address [address] [place] [address] Care Team Providers Care Director Of Employer Services Name Role Phone Caitlyn Bowie MD Primary Care Provider +1- [phone] Encounter Details Date Type Department Care Team (Late st Contact Info) Description 03/14/2021 Scanned Document INTERFACE DEFAULT [address] [place] [address] System, Provider Not In Social History Tobacco [...] [facility] [address] [facility] [address] [place], [place] [phone] Ronald Mills MD [address] [place] [address] [address] [place] [address] documented as of this encounter [...] of this encounter Care Teams Director Of Employer Services Relationship Specialty Start Date End Date Caitlyn Bowie MD [address] [address] PCP - General Internal Medicine 05/06/21 documented as of this encounter
--- OUTSIDE RECORDS SUMMARY | 2024-08-08 15:51 | XMS_ITS | Encounter Summary ---
Author Organization [facility] Address [address] [place] [address] Care Team Providers Care Butter Fat Tester Name Role Phone Victorino Martin MD Primary Care Provider UnavailSharon Kimbrough Primary Care Provider Unava ilable Brennan Burnett MD Primary Care Provider Unavailab Hayden Montes MD Unavailable [phone] Pallavi Flood NP Unavailable [phone] Caitlyn Bowie MD Primary Care Provider Unava chhaya Reason for Visit * Reason Onset Date Comments Medical Records 05/10/2018 Encounter Details Date Type Department Care Team Description 05/10/2018 Telephone Pulmonology - [address] [place] [address] Henry Kelly MD Medical Records [...] the one that she had done at [facility] was not in the records, nor was the information about all the times that she had pnuemonia. She wants to make sure thatyou meant to give her two copies of the same procedure. documented in this encounter Plan of Treatment Not on file documented as of this encounter Visit Diagnoses Not on filedocumented in this encounter Care Teams Butter Fat Tester Relationship Specialty Start Date End Date Victorino Martin MD PCP - General Internal Medicine 12/21/17 08/01/18 Sharon Vides PCP - General Internal Medicine 08/02/18 05/26/20 Brennan Burnett MD PCP - General Internal Medicine 05/27/20 12/07/21 Caitlyn Bowie MD [address] [place] [address] PCP - General Internal Medicine 12/08/21 Hayden Shah MD [address] [place] [address] Specialist Cardiovascular Disease 09/01/20 Pallavi Flood NP [address] [place] [address] Cardiology 09/01/20 documented as of this encounter
--- OUTSIDE RECORDS SUMMARY | 2024-08-08 15:51 | XMS_ITS | Encounter Summary ---
Author Organization [facility] Address [address] [place] [address] Care Team Providers Care Party Planner Name Role Phone Caitlyn Bowie MD Primary Care Provider +1- [phone] Encounter Details Date Type Department Care Team (Late st Contact Info) Description 04/02/2021 Scanned Document INTERFACE DEFAULT [address] [place] [address] System, Provider Not In Social History Tobacco [...] [facility] [address] [facility] [address] [place] [address] Ronald Mills MD [address] [place] [address] [address] [place] [address] documented as of this encounter [...] documented as of this encounter Care Teams Party Planner Relationship Specialty Start Date End Date Caitlyn Bowie MD [address] [address] PCP - General Internal Medicine 05/06/21 documented as of this encounter
--- OUTSIDE RECORDS SUMMARY | 2024-08-08 15:51 | XMS_ITS | Encounter Summary ---
Author Organization [facility] Address [address] [place] [address] Care Team Providers Care Muskrat Trapper Name Role Phone Victorino Martin MD Primary Care Provider Sharon Odonnell Primary Care Provider Brennan Castro MD Primary Care Provider UnavailHayden Fernandez MD Unavailable Pallavi Flood NP Unavailable [phone] Caitlyn Bowie MD Primary Care Provider Johnathon shaver Encounter Details Date Type Department Care Team Description 01/26/2018 [facility] Medical Records [address] [place] [address] Renetta Lugo Np Social History Tobacco Use [...] on filedocumented in this encounter Care Teams Muskrat Trapper Relationship Specialty Start Date End Date Victorino Martin MD PCP - General Internal Medicine 12/21/17 08/01/18 Sharon Vides PCP - General Internal Medicine 08/02/18 05/26/20 Brennan Burnett MD PCP - General Internal Medicine 05/27/20 12/07/21 Caitlyn Bowie MD [address] [place] [address] PCP - General Internal Medicine 12/08/21 Hayden Shah MD [address] [place] [address] Specialist Cardiovascular Disease 09/01/20 Pallavi Flood NP [address] [place] [phone] Cardiology 09/01/20 documented as of this encounter
--- OUTSIDE RECORDS SUMMARY | 2024-08-08 15:51 | XMS_ITS | Encounter Summary ---
Author Organization [facility] Address [address] [place] [address] Care Team Providers Care Founder And Chief Technical Officer Name Role Phone Sharon Vides Primary Care Provider Unava ilable Brennan Burnett MD Primary Care Provider Unavailab Hayden Montes MD Unavailable [phone] Pallavi Flood NP Unavailable [phone]- [phone] Caitlyn Bowie MD Primary Care Provider Unava ilable Reason for Visit * Reason Onset Date Comments Ankle Pain 07/05/2019 le, foot pain Encounter Details Date Type Department Care Team Description 07/05/2019 Telephone General Surgery [address] [place] [address] Norma Mendoza MD [address] [place] [address] Ankle Pain (le, foot pain) Social History Tobacco Use Types Packs/Day Years [...] encounter Miscellaneous Notes * Telephone Encounter - Ed Hamlin - 07/05/2019 3:55 PM EST Patient called in stating that she had a procedure done on January 09 2019 (lower extremity hematoma)and is complaining of pain in the leg,ankle and foot and its getting worse day by day. documented in this encounter Plan of Treatment Not on file documented as of this encounter Visit Diagnoses Not on filedocumented in this encounter Care Teams Founder And Chief Technical Officer Relationship Specialty Start Date End Date Sharon Vides PCP - General Internal Medicine 08/02/18 05/26/20 rBennan Burnett MD PCP - General Internal Medicine 05/27/20 12/07/21 Caitlyn Bowie MD [address] [place] [address] PCP - General Internal Medicine 12/08/21 Hayden Shah MD [address] [place] [address] Specialist Cardiovascular Disease 09/01/20 Pallavi Flood NP [address] [place] [address] Cardiology 09/01/20 documented as of this encounter
--- OUTSIDE RECORDS SUMMARY | 2024-08-08 15:51 | XMS_ITS | Clinical Summary ---
Author Organization [facility] Address [address] [place] [address] Phone Care Team Providers Care Lens Cleaner Name Role Phone ApolinarBrennan mcdonald Donna STARK Primary Care Provider [phone] Allergies Active Allergy Reactions Criticality Noted Date [...] 20 mg as needed by her previous deep tissue massage therapist which she has taken sporadically. I have asked her to take this daily to see if this improves her symptoms and she has a follow-up appointment with Dr. Shah on September 16 which she will keep. We also had a long conversation regarding the fact that she is seeing 3 different deep tissue massage therapist for the same problems. We informed her [...] continues to see Dr. Avalos or her deep tissue massage therapist at [facility]. She verbalized understanding of this and [...] Type Department Care Team Description 08/08/[address] [facility] Speech Therapy [address] [phone] Daphne Alarcon, RRTS Memory Loss (Returned pt call from 08/07 about recent missed visit. Pt is not interested in in person f/u right now due to cold weather and other medical issues. She will f/u with medical team if she wants to address cognitive status in future) 07/04/2024 Telephone Gastroenterology - 299 [facility] [address] [phone] Tim Gomes MD 07/01/2024 Telephone Gastroenterology - [address] [phone] Tim Gomes MD 06/20/2024 9:[address] [facility] Speech Therapy [address] [address] Daphne Alarcon, RRTS Cognitive communication disorder (Primary Dx); White matter lesion of central nervous system; Unsp symptoms and signs w cognitive functions and awareness; Gait abnormality 06/20/20[address] [facility] Speech Therapy [address] [address] 06/15/2024 11:51 AM EST - 06/15/2024 4:05 PM EST Emergency [facility] Emergency [address] [place] [phone] Jovana Cruz MD Pain (Primary Dx); Leg pain, posterior, left Discharge Disposition: Home or Self Care 05/22/2024 11:00 AM EST Consult [address] [place] [address] Ayanna Jaffe MD White matter [...] PROCEDURE: HISTORICAL TONSILLECTOMY OTHER SURGICAL HISTORY PROCEDURE: AL RMVL LUNG XCP TOT PNEUMONECTOMY SLEEVE LOBECTOMY; [...] pathology report UPPER GASTROINTESTINAL ENDOSCOPY 05/03/2015 PROCEDURE: AL UPPER GI ENDOSCOPY PERFORMED Medical History Medical History Date Comments Akathisia 04/15/2013 DX:Akathisia Anxiety 12/07/2016 DX:Anxiety Bronchiectasis ([facility] 08/08/2017 DX:Bron chiectasis ([facility]) Cataract 08/26/2014 DX:Cataract Chronic obstructive pulmonar y disease (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) 04/04/2017 DX:Congestive heart failure (HCC) History of [...] Mx LLL resection, Chemo, RT, Cisplatin, Vinorelbine [id number] 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 DX:Antiphospholipid [...] Office Visit Gastroenterology - [address] [facility] [address] [place] [phone] Saima Amor, INDUSTRIAL HYGENIST [address] [facility] [address] [place] [address] 08/27/2024 3:00 PM EST Office Visit [facility] [address] [place] [address] Ayanna Jaffe MD [address] [place] [address] Health Maintenance Due Date Last [...] Author [facility] General No Daphne Alarcon, RRTS Note: Pt will improve cognitive linguistic function to participate and communicate in iADLs mod I ST [facility] General No Daphne Alarcon, RRTS Note: Pt will participate with development of [...] PM EST) WBC 13.2(H) 4.8 - 10.8 K/[facility] LAB HEMETOLOGY METHOD 06/15/2024 1:39 PM [facility] RBC 3.70(L) 3.80 - 4.80 M/mcL LAB HEMETOLOGY METHOD 06/15/2024 1:39 PM [facility] Hemoglobin 12.0 11.5 - 16.0 g/dL LAB HEMETOLOGY METHOD 06/15/2024 1:39 PM [facility] Hematocrit 37.5 35.0 - 47.0 % LAB HEMETOLOGY METHOD 06/15/2024 1:39 PM [facility] MCV 100.3(H) 79.0 - 98.0 FL LAB HEMETOLOGY METHOD 06/15/2024 1:39 PM [facility] MCH 32.1(H) 27.0 - 32.0 pcg LAB HEMETOLOGY METHOD 06/15/2024 1:39 PM [facility] MCHC 32.0 32.0 - 37.0 g/dL LAB HEMETOLOGY METHOD 06/15/2024 1:39 PM [facility] RDW 14.3 11.0 - 15.0 % LAB HEMETOLOGY METHOD 06/15/2024 1:39 PM [facility] Platelets 201 130 - 400 K/mcL LAB HEMETOLOGY METHOD 06/15/2024 1:39 PM [facility] MPV 11.1(H) 7.0 - 11.0 FL LAB HEMETOLOGY METHOD 06/15/2024 1:39 PM [facility] NRBC 0.0 <1.0 % LAB HEMETOLOGY METHOD 06/15/2024 1:39 PM [facility] NRBC Absolute 0.00 <0.10 K/mcL LAB HEMETOLOGY METHOD 06/15/2024 1:39 PM [facility] Neutrophils Relative 85.5 % LAB HEMETOLOGY METHOD 06/15/2024 1:39 PM [facility] Lymphocytes Relative 4.8 % LAB HEMETOLOGY METHOD 06/15/2024 1:39 PM [facility] Monocytes Relative 7.4 % LAB HEMETOLOGY METHOD 06/15/2024 1:39 PM [facility] Eosinophils Relative 1.1 % LAB HEMETOLOGY METHOD 06/15/2024 1:39 PM [facility] Basophils Relative 0.4 % LAB HEMETOLOGY METHOD 06/15/2024 1:39 PM [facility] Immature Granulocytes Relative 0.8 % LAB HEMETOLOGY METHOD 06/15/2024 1:39 PM [facility] Neutrophils Absolute 11.28(H) 1.50 - 7.00 K/mcL LAB HEMETOLOGY METHOD 06/15/2024 1:39 PM [facility] Lymphocytes Absolute 0.63(L) 1.00 - 5.00 K/mcL LAB HEMETOLOGY METHOD 06/15/2024 1:39 PM [facility] Monocytes Absolute 0.98 0.20 - 1.00 K/mcL LAB HEMETOLOGY METHOD 06/15/2024 1:39 PM [facility] Eosinophils Absolute 0.14 0.00 - 0.50 K/mcL LAB HEMETOLOGY METHOD 06/15/2024 1:39 PM [facility] Basophils Absolute 0.05 0.00 - 0.20 K/mcL LAB HEMETOLOGY METHOD 06/15/2024 1:39 PM [facility] Immature Granulocytes Absolute 0.11(H) 0.00 - 0.03 K/mcL LAB HEMETOLOGY METHOD 06/15/2024 1:39 PM [facility] Blood Venous blood specimen / Unknown Venipuncture / Unknown 06/15/2024 1:26 PM EST 06/15/2024 1:31 PM EST Jovana Cruz MD LAB BLOOD ORDERABLES [facility] [address] [place] [address], [place] [phone] * (ABNORMAL) Protime-INR (06/15/2024 1:26 PM EST) Pathologist [facility] Protime 22.9(H) 10.6 - 13.9 sec LAB COAGULATION METHOD 06/15/2024 1:43 PM EST [facility] INR 1.8 LAB COAGULATION METHOD 06/15/2024 1:43 PM EST [facility] Blood Venous blood specimen / Unknown Venipuncture / Unknown 06/15/2024 1:26 PM EST 06/15/2024 1:31 PM EST Jovana Cruz MD LAB BLOOD ORDERABLES Performing Organization Address City/[facility]/ZIP Co de Phone Number [facility] [address] [place] [address], [place] [phone] * (ABNORMAL) Comprehensive metabolic panel (06/15/2024 1:26 PM EST) [facility] Sodium 140 133 - 145 mmol/L LAB CHEMISTRY METHOD 06/15/2024 2:10 PM [facility] Potassium 4.7 3.5 - 5.5 mmol/L LAB CHEMISTRY METHOD 06/15/2024 2:10 PM [facility] Chloride 102 96 - 110 mmol/L LAB CHEMISTRY METHOD 06/15/2024 2:10 PM [facility] CO2 34(H) 21 - 32 mmol/L LAB CHEMISTRY METHOD 06/15/2024 2:10 PM [facility] Anion Gap 4 3 - 11 LAB CHEMISTRY METHOD 06/15/2024 2:10 PM [facility] Glucose 95 70 - 100 mg/dL LAB CHEMISTRY METHOD 06/15/2024 2:10 PM [facility] BUN 29(H) 5 - 25 mg/dL LAB CHEMISTRY METHOD 06/15/2024 2:10 PM [facility] Creatinine 0.95 0.50 - 1.10 mg/dL LAB CHEMISTRY METHOD 06/15/2024 2:10 PM [facility] eGFR 60 >=60 mL/min/1. 73m2 LAB CHEMISTRY METHOD 06/15/2024 2:10 PM [facility] Comment:Calculation based on the??Chronic Kidney Disease Epidemiology Collaboration (CKD-EPI) equation refit??without adjustment for race. BUN/Creatinine Ratio 30.5 LAB CHEMISTRY METHOD 06/15/2024 2:10 PM [facility] Calcium 10.1 8.5 - 10.5 mg/dL LAB CHEMISTRY METHOD 06/15/2024 2:10 PM [facility] AST (SGOT) 35 10 - 42 unit/L LAB CHEMISTRY METHOD 06/15/2024 2:10 PM [facility] ALT (SGPT) 39 10 - 60 unit/L LAB CHEMISTRY METHOD 06/15/2024 2:10 PM [facility] Alkaline Phosphatase 83 42 - 121 unit/L LAB CHEMISTRY METHOD 06/15/2024 2:10 PM [facility] Total Protein 6.4 6.0 - 8.0 g/dL LAB CHEMISTRY METHOD 06/15/2024 2:10 PM [facility] Albumin 3.3 3.2 - 5.0 g/dL LAB CHEMISTRY METHOD 06/15/2024 2:10 PM [facility] Total Bilirubin 0.4 0.0 - 1.4 mg/dL LAB CHEMISTRY METHOD 06/15/2024 2:10 PM [facility] Blood Venous blood specimen / Unknown Venipuncture / Unknown 06/15/2024 1:26 PM EST 06/15/2024 1:32 PM EST Jovana Cruz MD [facility]OD [facility] [address] [place] [address], * Vascular US Duplex Lower Extremity Venous Left (06/15/2024 12:24 PM EST) Anatomical Region Laterality Modality Vascular, Abdomen Ultrasound 06/15/2024 12:2 0 PM EST Impressions 06/15/2024 12:20 PM EST Impression: No evidence of deep vein thrombosis in the left femoral-popliteal venous segment. [id number] -------- FINAL REPORT -------- Dictated By: Fawn Levin Dictated Date: 06/15/2024 12:20 ET Assigned Physician: Fawn Levin Reviewed and Electronically Signed By: Fawn Levin Signed Date: 06/15/2024 12:20 ET Workstation ID: [id number] Transcribed By: Self Edit Transcribed Date: 06/15/2024 [...] vein thrombosis in the leftfemoral-popliteal venous segment. [id number] -------- FINAL REPORT -------- Dictated By: Fawn Levin Dictated Date: 06/15/2024 12:20 ET Assigned Physician: Fawn Levin Reviewed and Electronically Signed By: Fawn Levin Signed Date: 06/15/2024 12:20 ET Workstation ID: [id number] Transcribed By: Self Edit Transcribed Date: 06/15/2024 12:20 ET Henry Carrillo DO CV VASCULAR PROCEDUR ES from Last 3 Months Advance Directives Documents on File Type Date Recorded Patient Cilnical Scientist Expl anation Health Care Decision (hx) 10/18/2013 [...] (hx) 10/04/2013 AD LACEY DIRECTIVE Care Teams Lens Cleaner Relationship Specialty Start Date End Date Brennan Burnett MD [address] [place] [address] PCP - General 05/06/24
--- OUTSIDE RECORDS SUMMARY | 2024-08-08 15:51 | XMS_ITS | Encounter Summary ---
Author Organization [facility] Address [address] [place] [address] Care Team Providers Care Managed Care Provider Name Role Phone Sharon Vides Primary Care Provider Brennan Castro MD Primary Care Provider Unavailab Hayden Montes MD Unavailable [phone] Pallavi Flood NP Unavailable [phone] Caitlyn Bowie MD Primary Care Provider Johnathon shaver Encounter Details Date Type Department Care Team Description 05/07/2019 [facility] Medical Records [address] [place] [id number] Abstract, Provider Social History Tobacco Use Types [...] on filedocumented in this encounter Care Teams Managed Care Provider Relationship Specialty Start Date End Date Sharon Vides PCP - General Internal Medicine 08/02/18 05/26/20 Brennan Burnett MD PCP - General Internal Medicine 05/27/20 12/07/21 Caitlyn Bowie MD [address] [place] [address] PCP - General Internal Medicine 12/08/21 Hayden Shah MD [address] [place] [address] Specialist Cardiovascular Disease 09/01/20 Pallavi Flood NP [address] [place] [address] Cardiology 09/01/20 documented as of this encounter
--- OUTSIDE RECORDS SUMMARY | 2024-08-08 15:51 | XMS_ITS | Encounter Summary ---
Author Organization [facility] Address [address] [place] [address] Care Team Providers Care Sports Umpire Name Role Phone Caitlyn Bowie MD Primary Care Provider [phone]- [phone] Encounter Details Date Type Department Care Team (Late st Contact Info) Description 06/07/2017 Scanned Document [facility] Health Information Management [address] [place] [address] External, Provider Social History Tobacco Use Types [...] [facility] [address] [facility] Building [address] [place], [place] [id number] Ronald Mills MD 240 [facility] [address] [place] [address] documented as of this encounter [...] documented as of this encounter Care Teams Sports Umpire Relationship Specialty Start Date End Date Caitlyn Bowie MD [address] [facility] 1 [place] [address] PCP - General Internal Medicine 05/06/21 Henry Kelly MD Pulmonary Department 175 [facility] [place] [address] Physician Pulmonary Disease 09/06/17 06/22/20 documented as of this encounter
--- OUTSIDE RECORDS SUMMARY | 2024-08-08 15:51 | XMS_ITS | Encounter Summary ---
Author Organization [facility] and [facility] Address [address] [place] [address] Care Team Providers Care Early Breastfeeding Care Specialist Name Role Phone Caitlyn Bowie MD Primary Care Provider +1- [phone] Encounter Details Date Type Department Care Team (Late st Contact Info) Description 03/16/2021 Scanned Document INTERFACE DEFAULT [address] [place] [address] System, Provider Not In Social History Tobacco [...] [facility] [address] [facility] [address] [place] [address] Ronald Mills MD [address] [place] [address] [address] [place] [address] documented as of this encounter Visit Diagnoses Not on filedocumented in this encounter Additional Health Concerns Infection Onset Date Last Indicated Resolved Time COVID-19 03/05/2022 03/05/2022 03/15/2022 7:18 PM EDT Assessment Noted Time PHQ-9 Depression Total Score: 2 11/07/19 19 2:06 PM EDT documented as of this encounter Care Teams Early Breastfeeding Care Specialist Relationship Specialty Start Date End Date Caitlyn Bowie MD [address] [address] PCP - General Internal Medicine 05/06/21 documented as of this encounter
--- OUTSIDE RECORDS SUMMARY | 2024-08-08 15:51 | XMS_ITS | Clinical Summary ---
Author Organization [address] Address [address] [place] [address] Phone Care Team Providers Care First Aid Nurse Name Role Phone Caitlyn Bowie MD Primary Care Provider +1- [phone] Allergies Active Allergy Reactions Criticality Noted Date [...] 10/17/2014 Visual changes, back pain, weakness Diatrizoate Shilho-Diatrizoat Sod Swelling High 09/23/2015 Throat tightness Gentamicin [...] Team Description 07/15/2024 Telephone Hematology Program at [facility] [address] [place] [address] Ronald Mills MD Triage 05/08/2024 Documentation Cancer Center at [address] [place] [address] Taya Nuno RN from Last 3 Months [...] Center at [facility] 240 [facility] Building [address] [place], [place] [address] Ronald Mills MD [address] [place] [address] Health Maintenance Due Date Last Done Comments [...] - 144 mmol/L 04/05/2022 1:43 PM EDT [facility] Potassium 4.7 3.3 - 5.3 mmol/L 04/05/2022 1:43 PM EDT [facility] Chloride 100 98 - 107 mmol/L 04/05/2022 1:43 PM EDT [facility] CO2 30 20 - 30 mmol/L 04/05/2022 1:43 PM EDT [facility] Anion Gap 8 7 - 17 04/05/2022 1:43 PM EDT [facility] Glucose 115(H) 70 - 100 mg/dL 04/05/2022 1:43 PM EDT [facility] BUN 16 8 - 23 mg/dL 04/05/2022 1:43 PM EDT [facility] Creatinine 0.89 0.40 - 1.30 mg/dL 04/05/2022 1:43 PM [facility] DEPARTMENT LABORATORY MEDICINE [facility] Calcium 10.5(H) 8.8 - 10.2 mg/dL 04/05/2022 1:43 PM [facility] BUN/Creatinine Ratio 18.0 8.0 - 23.0 03/11 1:43 PM T [facility] Total Protein 7.0 6.6 - 8.7 g/dL 04/05/2022 1:43 PM [facility] DEPARTMENT LABORATORY MEDICINE [facility] Albumin 4.2 3.6 - 4.9 g/dL 04/05/2022 1:43 PM [facility] DEPARTMENT LABORATORY MEDICINE [facility] Total Bilirubin 0.6 <=1.2 mg/dL 04/05/2022 1:43 PM [facility] DEPARTMENT OF LABORATORY MEDICINE [facility] Alkaline Phosphatase 58 9 - 122 U/L 04/05/2022 1:43 PM [facility] DEPARTMENT LABORATORY MEDICINE [facility] Alanine Aminotransferase (ALT) 19 10 - 35 U/L 04/05/2022 1:43 PM [facility] DEPARTMENT LABORATORY MEDICINE [facility] Comment:Calcium dobesilate c an cause artificially low ALT results at therapeutic concentrations Aspartate Aminotransferase (AST) 26 10 - 35 U/L 04/05/2022 1:43 PM [facility] DEPARTMENT OF LABORATORY MEDICINE [facility] Globulin 2.8 2.3 - 3.5 g/dL 04/05/2022 1:43 PM [facility] DEPARTMENT LABORATORY MEDICINE [facility] A/G Ratio 1.5 1.0 - 2.2 04/05/2022 1:43 PM [facility] DEPARTMENT LABORATORY MEDICINE [facility] AST/ALT Ratio 1.4 See Comment 04/05/2022 1:43 PM [facility] DEPARTMENT OF LABORATORY MEDICINE [facility] Comment: Adult with mild elevations of transaminases (< 5 times upper limit of normal): AST/ALT > 2 suggests alcoholic liver injury AST/ALT < 1 suggests non-alcoholic fatty liver disease (NAFLD) [place] (healthy): AST/ALT can be > 3 on day 0 AST/ALT < 2 by day 5 The thresholds provided focus on the most common etiologies of elevated serum transaminase levels and the associated alteration of AST:ALT ratios; they are not intended to exclude other feasible and clinically appropriate possibilities eGFR (Creatinine) >60 >=60 mL/min/1.7 3m2 04/05/2022 1:43 PM EDT [facility] Comment:Estimated glomerular filtration rate (eGFR) was [...] MD LAB BLOOD ORDERABLES Final Resul t [facility] [address] [place] [address] * Bone Density Result Scan (05/10/2017) us Historical Provider IMG SCAN REPORTS Final Resul t * (ABNORMAL) Lipid panel (03/18/2016 2:55 PM EDT) Cholesterol 229(H) 115 - 199 mg/dL 03/18/2016 8:11 PM EDT [facility] HDL 83 >=40 mg/dL 03/18/2016 8:11 PM EDT [facility] Triglycerides 71 30 - 150 mg/dL 03/18/2016 8:11 PM EDT [facility] Chol/HDL Ratio 2.8 <=5 03/18/2016 8:11 PM EDT [facility] Comment:Cholesterol/HDL rati o cannot be calculated. LDL Calculated 132 See Comment mg/dL 03/18/2016 8:11 PM EDT [facility] Comment: <100: Optimal 100-129: Near optimal/above optimal 130-159: Borderline high risk 160-189: High risk ??>=190: Very high risk Blood specimen (specimen) Venipuncture / Unknown 03/18/2016 2:55 PM EDT 03/18/2016 3:17 PM EDT Narrative [facility] - 03/18/2016 8:11 PM EDT $18.27 us Sangeeta Garces MD LAB BLOOD ORDERABLES Fin al Result Performing Organization Address City/State/[facility] Co de Phone Number [facility] [address] [place] [address] * MAMMOGRAPHY REPORT (04/25/2013 6:47 AM EDT) 04/25/2013 6:47 AM EDT us Provider Not In System IMG SCAN REPORTS Final Re sult from Last 3 Months or Most Recently Relevant to Health Maintenance Insurance MEDICARE [facility] MEDICARE [facility] MEDICARE [facility] MEDICARE MEDICARE [facility] Advance Directives * Full ACLS (Latest Code Status on File) Date Activated Date Inactivated Comments 12/15/2018 7:13 PM 12/16/2018 6:09 PM * Full Interventions Date Activated Date Inactivated Comments 03/18/2016 6:34 PM 03/19/2016 6:40 PM Care Teams First Aid Nurse Relationship Specialty Start Date End Date Caitlyn Bowie MD [facility] [address] [address] PCP - General Internal Medicine 05/06/21
--- OUTSIDE RECORDS SUMMARY | 2024-08-08 15:51 | XMS_ITS | Encounter Summary ---
Author Organization [facility] Address [address] [place] [address] Care Team Providers Care Toe Pounder Name Role Phone Victorino Martin MD Primary Care Provider Sharon Odonnell Primary Care Provider Brennan Castro MD Primary Care Provider UnavailHayden Fernandez MD Unavailable [phone] Pallavi Flood NP Unavailable [phone]- [phone] Caitlyn Bowie MD Primary Care Provider Johnathon shaver Encounter Details Date Type Department Care Team Description 02/07/2018 Cloth Laminating Supervisor Report Medical Records [address] [place] [address] Victorino Martin MD Social History Tobacco Use [...] on filedocumented in this encounter Care Teams Toe Pounder Relationship Specialty Start Date End Date Victorino Martin MD PCP - General Internal Medicine 12/21/17 08/01/18 Sharon Vides PCP - General Internal Medicine 08/02/18 05/26/20 Brennan Burnett MD PCP - General Internal Medicine 05/27/20 12/07/21 Caitlyn Bowie MD [address] [place] [address] PCP - General Internal Medicine 12/08/21 Hayden Shah MD [address] [place] [phone] Specialist Cardiovascular Disease 09/01/20 Pallavi Flood NP [address] [place] [phone] Cardiology 09/01/20 documented as of this encounter
--- OUTSIDE RECORDS SUMMARY | 2024-08-08 15:51 | XMS_ITS | Encounter Summary ---
Author Organization [facility] Address [address] [place] [address] Care Team Providers Care Reel Tender Name Role Phone Cristofer Hope MD Primary Care Provider Victorino Read MD Primary Care Provider UnavailSharon Kimbrough Primary Care Provider Unava ilBrennan Newman MD Primary Care Provider Unavailab Hayden Montes MD Unavailable [phone] Pallavi Flood NP Unavailable [phone]- [phone] Caitlyn Bowie MD Primary Care Provider Unava ilable Encounter Details Date Type Department Care Team Description 10/24/2017 Pt. Non Urgent Medical Question Pulmonology - [address] [place] [address] Leslie Caro NP Allergic rhinitis, unspecified chronicity, unspecified seasonality, unspecified trigger (Primary Dx) Social History Tobacco Use Types [...] as of this encounter Progress Notes * Sheila Devries M.A. - 10/24/2017 9:01 AM EDTFrom: Jovana Malik To: Leslie Caro NP Sent: 10/24/2017 7:53 AM EDT Subject: Qnasal Hi Leslie I saw you yesterday and you prescribed Qnasal. My insurance does not cover that drug and itis over $200.00 I am not able to afford that drug. Is there something else you can suggest either prescription or over the counter that would agree with me. Thank you, Jovana chaveso.b. 1945 telephone [phone] documented in this encounter Plan of Treatment Not on file documented as of this encounter Visit Diagnoses Diagnosis Allergic rhinitis, unspecified chronicity, unspecified seasonality, unspecified trigger- Primary documented in this encounter Care Teams Reel Tender Relationship Specialty Start Date End Date Cristofer Hope MD PCP - General Internal Medicine 05/16/17 12/20/17 Victorino Martin MD PCP - General Internal Medicine 12/21/17 08/01/18 Sharon Vides PCP - General Internal Medicine 08/02/18 05/26/20 Brennan Burnett MD PCP - General Internal Medicine 05/27/20 12/07/21 Caitlyn Bowie MD [address] [place] [address] PCP - General Internal Medicine 12/08/21 Hayden Shah MD [address] [place] [address] Specialist Cardiovascular Disease 09/01/20 Pallavi Flood NP [address] [place] [address] Cardiology 09/01/20 documented as of this encounter
--- OUTSIDE RECORDS SUMMARY | 2024-08-08 15:51 | XMS_ITS | Encounter Summary ---
Author Organization [facility] Address [address] [place] [address] Care Team Providers Care Associate Professor Of Theology Name Role Phone Sharon Vides Primary Care Provider Brennan Castro MD Primary Care Provider Unavailab Hayden Montes MD Unavailable [phone] Pallavi Flood NP Unavailable [phone] Caitlyn Bowie MD Primary Care Provider Johntahon shaver Encounter Details Date Type Department Care Team Description 07/15/2019 Release of Information Medical Records [address] [place] [address] Abstract, Provider Social History Tobacco Use Types [...] on filedocumented in this encounter Care Teams Associate Professor Of Theology Relationship Specialty Start Date End Date Sharon Vides PCP - General Internal Medicine 08/02/18 05/26/20 Brennan Burnett MD PCP - General Internal Medicine 05/27/20 12/07/21 Caitlyn Bowie MD [address] [place] [address] PCP - General Internal Medicine 12/08/21 Hayden Shah MD [address] [place] [address] Specialist Cardiovascular Disease 09/01/20 Pallavi Flood NP [address] [place] [address] Cardiology 09/01/20 documented as of this encounter
--- OUTSIDE RECORDS SUMMARY | 2024-08-08 15:52 | XMS_ITS | Encounter Summary ---
Author Organization [facility] Address [address] [place] [address] Care Team Providers Care Advance Agent Name Role Phone Caitlyn Bowie MD Primary Care Provider [phone]- [phone] Encounter Details Date Type Department Care Team (Late st Contact Info) Description 01/26/2018 Scanned Document [facility] Health Information Management [address] [place] [address] External, Provider Social History Tobacco Use Types [...] [facility] [address] [facility] [address] [place], [place] [phone] Ronald Mills MD [address] [facility] [address] [place] [address] documented as of this encounter [...] documented as of this encounter Care Teams Advance Agent Relationship Specialty Start Date End Date Caitlyn Bowie MD [address] [facility] 1 [place] [address] PCP - General Internal Medicine 05/06/21 Henry Kelly MD Pulmonary Department [address] [facility], [address] [place] [address] Physician Pulmonary Disease 09/06/17 06/22/20 documented as of this encounter
--- OUTSIDE RECORDS SUMMARY | 2024-08-08 15:52 | XMS_ITS | Encounter Summary ---
Author Organization [facility] and [facility] Address [address] [place] [address] Care Team Providers Care Ink Blender Name Role Phone Caitlyn Bowie MD Primary Care Provider [phone]- [phone] Encounter Details Date Type Department Care Team (Late Contact Info) Description 02/03/2021 Scanned Document [facility] Information Management [address] [place] [address] External, Provider Social History Tobacco Use Types [...] [facility] [address] [facility] Building [address] [place], [place] [id number] Ronald Mills MD [address] [place] [address] [address] [place] [address] documented as of this encounter [...] documented as of this encounter Care Teams Ink Blender Relationship Specialty Start Date End Date Caitlyn Bowie MD [address] [address] PCP - General Internal Medicine 05/06/21 documented as of this encounter
--- OUTSIDE RECORDS SUMMARY | 2024-08-08 15:52 | XMS_ITS | Encounter Summary ---
Author Organization [facility] Address [address] [place] [address] Care Team Providers Care Wire Puller Name Role Phone Brennan Burnett MD Primary Care Provider Unavailab Hayden Montes MD Unavailable [phone] Pallavi Flood NP Unavailable [phone] Caityln Bowie MD Primary Care Provider Unava ilable Encounter Details Date Type Department Care Team Description 08/17/2020 [facility] Medical Records [address] [place] [phone] [place] [address] Social History Tobacco Use Types Packs/Day Years [...] on filedocumented in this encounter Care Teams Wire Puller Relationship Specialty Start Date End Date Brennan Burnett MD PCP - General Internal Medicine 05/27/20 12/07/21 Caitlyn Bowie MD [address] [place] [address] PCP - General Internal Medicine 12/08/21 Hayden Shah MD [address] [place] [address] Specialist Cardiovascular Disease 09/01/20 Pallavi Flood NP [address] [place] [address] Cardiology 09/01/20 documented as of this encounter
--- OUTSIDE RECORDS SUMMARY | 2024-08-08 15:52 | XMS_ITS | Encounter Summary ---
Author Organization [facility] and [facility] Address [address] [place] [address] Care Team Providers Care Foundation Engineer Name Role Phone Caitlyn Bowie MD Primary Care Provider [phone]- [phone] Encounter Details Date Type Department Care Team (Late st Contact Info) Description 08/23/2017 Scanned Document [facility] Health Information Management [address] [place] [address] External, Provider Social History Tobacco Use Types [...] Center at [facility] 240 [facility] [address] [place], [place] [phone] Ronald Mills MD [address] [place] [address] [address] [place] [address] documented as of this encounter [...] documented as of this encounter Care Teams Foundation Engineer Relationship Specialty Start Date End Date Caitlyn Bowie MD [address] [facility] 1 [place] [address] PCP - General Internal Medicine 05/06/21 Henry Kelly MD Pulmonary Department [address] [facility], [address] [place] [address] Physician Pulmonary Disease 09/06/17 06/22/20 documented as of this encounter
--- OUTSIDE RECORDS SUMMARY | 2024-08-08 15:52 | XMS_ITS | Encounter Summary ---
Author Organization [facility] Address [address] [place] [address] Care Team Providers Care Disposal Worker Name Role Phone Caitlyn Bowie MD Primary Care Provider +1- [phone] Encounter Details Date Type Department Care Team (Late st Contact Info) Description 02/28/2021 Scanned Document INTERFACE DEFAULT [address] [place] [address] System, Provider Not In Social History Tobacco [...] at [facility] [address] [facility] [address] [place] [address] Ronald Mills MD [address] [place] [address] [address] [place] [address] documented as of this encounter Procedures [...] documented as of this encounter Care Teams Disposal Worker Relationship Specialty Start Date End Date Caitlyn oBwie MD [address] [address] PCP - General Internal Medicine 05/06/21 documented as of this encounter
--- OUTSIDE RECORDS SUMMARY | 2024-08-08 15:52 | XMS_ITS | Encounter Summary ---
Author Organization [facility] Address [address] [place] [address] Care Team Providers Care Pet Food Deboner Name Role Phone Caitlyn Bowie MD Primary Care Provider [phone]- [phone] Encounter Details Date Type Department Care Team (Late st Contact Info) Description 02/02/2021 Scanned Document INTERFACE DEFAULT [address] [place] [address] System, Provider Not In Social History Tobacco [...] [facility] 240 [facility] [address] [place] [address] Ronald Mills MD [address] [place] [address] [address] [place] [address] documented as of this encounter [...] documented as of this encounter Care Teams Pet Food Deboner Relationship Specialty Start Date End Date Caitlyn Bowie MD [facility] [address] [address] PCP - General Internal Medicine 05/06/21 documented as of this encounter
--- OUTSIDE RECORDS SUMMARY | 2024-08-08 15:52 | XMS_ITS | Encounter Summary ---
Author Organization [facility] and [facility] Address [address] [place] [address] Care Team Providers Care Mobile Designer Name Role Phone Caitlyn Bowie MD Primary Care Provider +1- [phone] Reason for Visit * Reason Comments Other Encounter Details Date Type Department Care Team (Late st Contact Info) Description 01/12/2021 Telephone [facility] at [address] - [address] [id number] Ronald Mills MD [address] [place] [phone] Other Social History Tobacco Use Types [...] AM EDT Lab orders were faxed to [facility] @ [phone]. Patient notified by phone. * Telephone Encounter - Kathleen Nasima - 01/12/2021 8:46 AM EDT Pt called looking to speak with Kirstin RE: lab orders sent to lab [facility] lab Looking to have labs sent there A.S.A.P at some point today She is scheduled with Dr. Mills on January 28 documented in this encounter Plan of Treatment Upcoming Encounters Date Type Department Care Team (Late st Contact Info) Description 10/31/2024 1:00 PM EDT Telemedicine [facility] 240 [facility] Building [address] [place], [place] [phone] Ronald Mills MD 240 [facility] [address] [place] [address] documented as of this encounter Visit Diagnoses Not on filedocumented in this encounter Additional Health Concerns Infection Onset Date Last Indicated Resolved Time COVID-19 03/05/2022 03/05/2022 03/15/2022 7:18 PM EDT Assessment Noted Time PHQ-9 Depression Total Score: 2 11/07/19 19 2:06 PM EDT documented as of this encounter Care Teams Mobile Designer Relationship Specialty Start Date End Date Caitlyn Bowie MD [address] [address] PCP - General Internal Medicine 05/06/21 documented as of this encounter
--- OUTSIDE RECORDS SUMMARY | 2024-08-08 15:52 | XMS_ITS | Encounter Summary ---
Author Organization [facility] Address [address] [place] [address] Care Team Providers Care Associate Sales Manager Name Role Phone Brennan Burnett MD Primary Care Provider Unavailab Hayden Montes MD Unavailable [phone] Pallavi Flood NP Unavailable [phone]- [phone] Caitlyn Bowie MD Primary Care Provider Unava ilable Encounter Details Date Type Department Care Team Description 08/18/2020 [facility] Medical Records [address] [place] [address] Brennan Burnett MD Social History Tobacco Use [...] filedocumented in this encounter Care Teams Associate Sales Manager Relationship Specialty Start Date End Date Brennan Burnett MD PCP - General Internal Medicine 05/27/20 12/07/21 Caitlyn Bowie MD [address] [place] [address] PCP - General Internal Medicine 12/08/21 Hayden Shah MD [address] [place] [address] Specialist Cardiovascular Disease 09/01/20 Pallavi Flood NP [address] [place] [address] Cardiology 09/01/20 documented as of this encounter
--- OUTSIDE RECORDS SUMMARY | 2024-08-08 15:52 | XMS_ITS | Encounter Summary ---
Author Organization [facility] and [facility] Address [address] [place] [address] Care Team Providers Care Speaker Mounter Name Role Phone Caitlyn Bowie MD Primary Care Provider +1- [phone] Encounter Details Date Type Department Care Team (Late st Contact Info) Description 04/28/2015 Scanned Document [facility] Health Information Management [address] [place] [address] External, Provider Social History Tobacco Use Types [...] [facility] at [facility] 240 [facility] [address] [place], [place] [id number] Ronald Mills MD 240 [facility] A1 [place] [address] documented as of this encounter Visit Diagnoses Not on filedocumented in this encounter Additional Health Concerns Infection Onset Date Last Indicated Resolved Time COVID-19 03/05/2022 03/05/2022 03/15/2022 7:18 PM EDT documented as of this encounter Care Teams Speaker Mounter Relationship Specialty Start Date End Date Caitlyn Bowie MD 3400 [facility] 1 [place] [address] PCP - General Internal Medicine 05/06/21 Henry Kelly MD Pulmonary Department 175 [facility], [address] [place] [address] Physician Pulmonary Disease 09/06/17 06/22/20 documented as of this encounter
--- OUTSIDE RECORDS SUMMARY | 2024-08-08 15:52 | XMS_ITS | Encounter Summary ---
Author Organization [facility] and [facility] Address [address] [place] [address] Care Team Providers Care Motor Home Electrical Foreman Name Role Phone Caitlyn Bowie MD Primary Care Provider +1- [phone] Encounter Details Date Type Department Care Team (Late st Contact Info) Description 01/13/2021 Scanned Document Cancer [facility] at [address] [address] Ronald Mills MD [address] [address] Social History Tobacco Use Types [...] at [facility] 240 [facility] Building [address] [place] [address] Ronald Mills MD [address] [address] documented as of this encounter [...] as of this encounter Care Teams Motor Home Electrical Foreman Relationship Specialty Start Date End Date Caitlyn Bowie MD [address] [address] PCP - General Internal Medicine 05/06/21 documented as of this encounter
--- OUTSIDE RECORDS SUMMARY | 2024-08-08 15:52 | XMS_ITS | Encounter Summary ---
Author Organization [facility] and [facility] Address [address] [place] [address] Care Team Providers Care Surface Supervisor Name Role Phone Caitlyn Bowie MD Primary Care Provider +1- [phone] Encounter Details Date Type Department Care Team (Late st Contact Info) Description 04/28/2015 Scanned Document [facility] Health Information Management [address] [place] [address] External, Provider Social History Tobacco Use Types [...] Telemedicine [facility] at [facility] 240 [facility] Building [address] [place], [place] [phone] Ronald Mills MD 240 [facility] Max [address] [place] [address] documented as of this encounter Procedures Procedure Name Priority Date/Time Associated Diagnosis Comments LAB SCAN Routine 04/28/2015 documented in this encounter Results * Lab Scan (04/28/2015) Blood specimen (specimen) us Provider External LAB BLOOD ORDERABLES Edited Re sult - Final [facility] documented in this encounter Visit Diagnoses Not on filedocumented in this encounter Additional Health Concerns Infection Onset Date Last Indicated Resolved Time COVID-19 03/05/2022 03/05/2022 03/15/2022 7:18 PM EDT documented as of this encounter Care Teams Surface Supervisor Relationship Specialty Start Date End Date Caitlyn Bowie MD 3400 [facility] 1 [place] [address] PCP - General Internal Medicine 05/06/21 Henry Kelly MD Pulmonary Department 175 [facility], [address] [place] [address] Physician Pulmonary Disease 09/06/17 06/22/20 documented as of this encounter
--- OUTSIDE RECORDS SUMMARY | 2024-08-08 15:52 | XMS_ITS | Encounter Summary ---
Author Organization [facility] and [facility] Address [address] [place] [address] Care Team Providers Care President Finance Company Name Role Phone Caitlyn Bowie MD Primary Care Provider +1- [phone] Encounter Details Date Type Department Care Team (Late st Contact Info) Description 09/18/2020 Scanned Document INTERFACE DEFAULT [address] [place] [address] System, Provider Not In Social History Tobacco [...] [facility] 240 [facility] [address] [place] [address] Ronald Mills MD [address] [place] [address] [address] [place] [address] documented as of this encounter Visit Diagnoses Not on filedocumented in this encounter Additional Health Concerns Infection Onset Date Last Indicated Resolved Time COVID-19 03/05/2022 03/05/2022 03/15/2022 7:18 PM EDT Assessment Noted Time PHQ-9 Depression Total Score: 2 11/07/19 19 2:06 PM EDT documented as of this encounter Care Teams President Finance Company Relationship Specialty Start Date End Date Caitlyn Bowie MD [address] [address] PCP - General Internal Medicine 05/06/21 documented as of this encounter
--- OUTSIDE RECORDS SUMMARY | 2024-08-08 15:52 | XMS_ITS | Encounter Summary ---
Author Organization [facility] and [facility] Address [address] [place] [address] Care Team Providers Care Pmo Consultant Name Role Phone Caitlyn Bowie MD Primary Care Provider +1- [phone] Encounter Details Date Type Department Care Team (Late st Contact Info) Description 07/31/2015 Scanned Document [facility] Health Information Management [address] [place] [address] External, Provider Social History Tobacco Use Types [...] Cancer Center at [facility] 240 [facility] Building [address] [place], [place] [id number] Rnoald Mills MD 240 [facility] Max [address] [place] [address] documented as of this encounter Procedures Procedure Name Priority Date/Time Associated Diagnosis Comments NUC MED/PET RESULT SCAN Routine 07/31/2015 documented in this encounter Results * Nuc Med/PET Result Scan (07/31/2015) us Provider External IMG SCAN REPORTS Edited Result - Final [facility] [place], [place] documented in this encounter Visit Diagnoses Not on filedocumented in this encounter Additional Health Concerns Infection Onset Date Last Indicated Resolved Time COVID-19 03/05/2022 03/05/2022 03/15/2022 7:18 PM EDT documented as of this encounter Care Teams Pmo Consultant Relationship Specialty Start Date End Date Caitlyn Bowie MD 3400 [facility] Max 1 [place] [address] PCP - General Internal Medicine 05/06/21 Henry Kelly MD Pulmonary Department 175 [facility], [address] [place] [address] Physician Pulmonary Disease 09/06/17 06/22/20 documented as of this encounter
--- OUTSIDE RECORDS SUMMARY | 2024-08-08 15:52 | XMS_ITS | Encounter Summary ---
Author Organization [facility] Address [address] [place] [address] Care Team Providers Care Paper Pattern Folder Name Role Phone Caitlyn Bowie MD Primary Care Provider +1- [phone] Encounter Details Date Type Department Care Team (Late st Contact Info) Description 05/01/2015 Scanned Document [facility] Health Information Management [address] [place] [address] External, Provider Social History Tobacco Use Types [...] [facility] 240 [facility] Building [address] [place], [place] [phone] Ronald Mills MD 240 [facility] Max [address] [place] [address] documented as of this encounter [...] as of this encounter Care Teams Paper Pattern Folder Relationship Specialty Start Date End Date Caitlyn Bowie MD 3400 [facility] Max 1 [place] [address] PCP - General Internal Medicine 05/06/21 Henry Kelly MD Pulmonary Department 175 [facility], [address] [place] [address] Physician Pulmonary Disease 09/06/17 06/22/20 documented as of this encounter
--- OUTSIDE RECORDS SUMMARY | 2024-08-08 15:52 | XMS_ITS | Encounter Summary ---
Author Organization [facility] Address [address] [place] [address] Care Team Providers Care Digital Research Analyst Name Role Phone Brennan Burnett MD Primary Care Provider Unavailab Hayden Montes MD Unavailable Pallavi Flood NP Unavailable +1- [phone] Caitlyn Bowie MD Primary Care Provider Unava ilable Encounter Details Date Type Department Care Team Description 09/15/2020 [facility] Medical Records [address] [place] [address] Social History Tobacco Use Types Packs/Day Years [...] Name Priority Date/Time Associated Diagnosis Comments OUTSIDE CT Routine 09/16/2020 OUTSIDE LAB Routine 09/15/2020 documented in this encounter Results * OUTSIDE CT (09/16/2020) Provider Abstract RADIOLOGY * OUTSIDE LAB (09/15/2020) Provider Abstract LAB documented in this encounter Visit Diagnoses Not on filedocumented in this encounter Care Teams Digital Research Analyst Relationship Specialty Start Date End Date Brennan Burnett MD PCP - General Internal Medicine 05/27/20 12/07/21 Caitlyn Bowie MD [address] [place] [address] PCP - General Internal Medicine 12/08/21 Hayden Shah MD [address] [place] [address] Specialist Cardiovascular Disease 09/01/20 Pallavi Flood NP [address] [place] [address] Cardiology 09/01/20 documented as of this encounter
--- OUTSIDE RECORDS SUMMARY | 2024-08-08 15:52 | XMS_ITS | Encounter Summary ---
Author Organization [facility] Address [address] [place] [address] Care Team Providers Care Washcloth Folder Name Role Phone Brennan Burnett MD Primary Care Provider Unavailab Hayden Montes MD Unavailable [phone] Pallavi Flood NP Unavailable [phone]- [phone] Caitlyn Bowie MD Primary Care Provider Unava ilable Encounter Details Date Type Department Care Team Description 09/30/2020 [facility] Medical Records [address] [place] [address] Social History Tobacco Use Types Packs/Day Years [...] Name Priority Date/Time Associated Diagnosis Comments OUTSIDE EKG Routine 09/30/2020 OUTSIDE PLAIN FILM Routine 09/30/2020 OUTSIDE LAB Routine 09/30/2020 documented in this encounter Results * OUTSIDE PLAIN FILM (09/30/2020) Provider Abstract RADIOLOGY * OUTSIDE LAB (09/30/2020) Provider Abstract LAB * OUTSIDE EKG (09/30/2020) Provider Abstract CARDIOLOGY documented in this encounter Visit Diagnoses Not on filedocumented in this encounter Care Teams Washcloth Folder Relationship Specialty Start Date End Date Brennan Burnett MD PCP - General Internal Medicine 05/27/20 12/07/21 Caitlyn Bowie MD [address] [place] [address] PCP - General Internal Medicine 12/08/21 Hayden Shah MD [address] [place] [address] Specialist Cardiovascular Disease 09/01/20 Pallavi Flood NP [address] [place] [address] Cardiology 09/01/20 documented as of this encounter
--- OUTSIDE RECORDS SUMMARY | 2024-08-08 15:52 | XMS_ITS | Encounter Summary ---
Author Organization [facility] Address [address] [place] [address] Care Team Providers Care Compound Coating Machine Offbearer Name Role Phone Caitlyn Bowie MD Primary Care Provider +1- [phone] Encounter Details Date Type Department Care Team (Late st Contact Info) Description 05/14/[address] [facility] Health Information Management [address] [place] [address] External, Provider Social History Tobacco Use Types [...] [facility] 240 [facility] Building [address] [place], [place] [phone] Ronald Mills MD 240 [facility] A1 [place] [address] documented as of this encounter Visit Diagnoses Not on filedocumented in this encounter Additional Health Concerns Infection Onset Date Last Indicated Resolved Time COVID-19 03/05/2022 03/05/2022 03/15/2022 7:18 PM EDT documented as of this encounter Care Teams Compound Coating Machine Offbearer Relationship Specialty Start Date End Date Caitlyn Bowie MD 3400 [facility] 1 [place] [address] PCP - General Internal Medicine 05/06/21 Henry Kelyl MD Pulmonary Department 175 [facility], [address] [place] [address] Physician Pulmonary Disease 09/06/17 06/22/20 documented as of this encounter
--- OUTSIDE RECORDS SUMMARY | 2024-08-08 15:52 | XMS_ITS | Encounter Summary ---
Author Organization [facility] and [facility] Address [address] [place] [address] Care Team Providers Care Hasher Operator Name Role Phone Caitlyn Bowie MD Primary Care Provider +1- [phone] Encounter Details Date Type Department Care Team (Late st Contact Info) Description 01/13/2021 Scanned Document Cancer Center at [address] [address] External, Provider Social History Tobacco Use Types [...] [facility] [place] [facility] 240 [facility] [address] [place], [place] [phone] Ronald Mills MD [address] [place] [address] [address] [place] [address] documented as of this encounter [...] documented as of this encounter Care Teams Hasher Operator Relationship Specialty Start Date End Date Caitlyn Bowie MD [address] [address] PCP - General Internal Medicine 05/06/21 documented as of this encounter
--- OUTSIDE RECORDS SUMMARY | 2024-08-08 15:52 | XMS_ITS | Encounter Summary ---
Author Organization [facility] Address [address] [place] [address] Care Team Providers Care Inspector Glass Or Mirror Name Role Phone Sharon Vides Primary Care Provider Brennan Castro MD Primary Care Provider Unavailab Hayden Montes MD Unavailable [phone] Pallavi Flood NP Unavailable [phone]- [phone] Caitlyn Bowie MD Primary Care Provider Johnathon shaver Encounter Details Date Type Department Care Team Description 11/26/2018 Pt. Non Urgent Medic al Question Pulmonology - [place] 175 [facility] [address] [place] [address] Henry Kelly MD Social History [...] on filedocumented in this encounter Care Teams Inspector Glass Or Mirror Relationship Specialty Start Date End Date Sharon Vides PCP - General Internal Medicine 08/02/18 05/26/20 Brennan Burnett MD PCP - General Internal Medicine 05/27/20 12/07/21 Caitlyn Bowie MD [address] [place] [address] PCP - General Internal Medicine 12/08/21 Hayden Shah MD [address] [place] [address] Specialist Cardiovascular Disease 09/01/20 Pallavi Flood NP [address] [place] [address] Cardiology 09/01/20 documented as of this encounter
--- OUTSIDE RECORDS SUMMARY | 2024-08-08 15:52 | XMS_ITS | Encounter Summary ---
Author Organization [facility] and [facility] Address [address] [place] [address] Care Team Providers Care Sole Splitter Name Role Phone Caitlyn Bowie MD Primary Care Provider +1- [phone] Encounter Details Date Type Department Care Team ([facility] st Contact Info) Description 08/26/2014 Documentation [facility] [address] [place] [address] Shilpi Ibarra [address] [place] [address] Social History Tobacco Use Types Packs/Day Years [...] from the original note were not included. [facility] Progress Note This is a 69 y.o. female who was provided services by [facility]. Service Provided By:: Shilpi Ibarra Patient Status: return Length of Appointment: 60 minutes documented in this encounter Plan of Treatment Upcoming Encounters Date Type Department Care Team ([facility] st Contact Info) Description 10/31/2024 1:00 PM EDT Telemedicine [facility] at [facility] 240 [facility] [address] [place] [address] Ronald Mills MD 240 [facility] Max [address] [place] [address] documented as of this encounter Visit Diagnoses Not on filedocumented in this encounter Additional Health Concerns Infection Onset Date Last Indicated Resolved Time COVID-19 03/05/2022 03/05/2022 03/15/2022 7:18 PM EDT documented as of this encounter Care Teams Sole Splitter Relationship Specialty Start Date End Date Caitlyn Bowie MD 3400 [facility] 1 [place] [address] PCP - General Internal Medicine 05/06/21 Henry Kelly MD Pulmonary Department 175 [facility], [address] [place] [address] Physician Pulmonary Disease 09/06/17 06/22/20 documented as of this encounter
--- OUTSIDE RECORDS SUMMARY | 2024-08-08 15:52 | XMS_ITS | Encounter Summary ---
Author Organization [facility] Address [address] [place] [address] Care Team Providers Care Retail Account Specialist Name Role Phone Brennan Burnett MD Primary Care Provider Unavailab Hayden Montes MD Unavailable [phone] Pallavi Flood NP Unavailable [phone]- [phone] Caitlyn Bowie MD Primary Care Provider Unava ilable Encounter Details Date Type Department Care Team Description 09/25/2020 Flight Mechanic Report Medical Records [address] [place] [address] Henry Kelly MD Social History Tobacco Use [...] filedocumented in this encounter Care Teams Retail Account Specialist Relationship Specialty Start Date End Date Brennan Burnett MD PCP - General Internal Medicine 05/27/20 12/07/21 [address]lyn [address] [place] [address] PCP - General Internal Medicine 12/08/21 Hayden Shah MD [address] [place] [address] Specialist Cardiovascular Disease 09/01/20 Pallavi Flood NP [address] [place] [address] Cardiology 09/01/20 documented as of this encounter
--- OUTSIDE RECORDS SUMMARY | 2024-08-08 15:52 | XMS_ITS | Encounter Summary ---
Author Organization [facility] and [facility] Address [address] [place] [address] Care Team Providers Care Supervisor Commercial Fish Hatchery Name Role Phone Caitlyn Bowie MD Primary Care Provider +1- [phone] Encounter Details Date Type Department Care Team (Late st Contact Info) Description 01/26/2018 Scanned Document [facility] Health Information Management [address] [place] [address] External, Provider Social History Tobacco Use Types [...] Telemedicine [facility] at [facility] 240 [facility] Building [address] [place], [place] [phone] Ronald Mills MD 240 [facility] [address]1 [place] [address] documented as of this encounter Visit Diagnoses Not on filedocumented in this encounter Additional Health Concerns Infection Onset Date Last Indicated Resolved Time COVID-19 03/05/2022 03/05/2022 03/15/2022 7:18 PM EDT documented as of this encounter Care Teams Supervisor Commercial Fish Hatchery Relationship Specialty Start Date End Date Caitlyn Bowie MD 3400 [facility] 1 [place] [address] PCP - General Internal Medicine 05/06/21 Henry Kelly MD Pulmonary Department 175 [facility], [address] [place] [address] Physician Pulmonary Disease 09/06/17 06/22/20 documented as of this encounter
--- OUTSIDE RECORDS SUMMARY | 2024-08-08 15:52 | XMS_ITS | Encounter Summary ---
Author Organization [facility] and [facility] Address [address] [place] [address] Care Team Providers Care Avionics Supervisor Name Role Phone Caitlyn Bowie MD Primary Care Provider +1- [phone] Encounter Details Date Type Department Care Team (Late st Contact Info) Description 02/03/2021 Scanned Document INTERFACE DEFAULT [address] [place] [address] System, Provider Not In Social History Tobacco [...] [facility] 240 [facility] Building [address] [place], [place] [phone] Ronald Mills MD [address] [place] [address] [address] [place] [address] documented as of this encounter [...] documented as of this encounter Care Teams Avionics Supervisor Relationship Specialty Start Date End Date Caitlyn Bowie MD [address] [address] PCP - General Internal Medicine 05/06/21 documented as of this encounter
--- OUTSIDE RECORDS SUMMARY | 2024-08-08 15:52 | XMS_ITS | Encounter Summary ---
Author Organization [facility] Address [address] [place] [address] Care Team Providers Care Wheel Of Fortune Dealer Name Role Phone Caitlyn Bowie MD Primary Care Provider +1- [phone] Encounter Details Date Type Department Care Team (Late st Contact Info) Description 09/01/2017 Scanned Document [facility] Health Information Management [address] [place] [address] External, Provider Social History Tobacco Use Types [...] [facility] at [facility] 240 [facility] Building [address] [place], [place] [phone] Ronald Mills MD 240 [facility] [address]1 [place] [address] documented as of this encounter [...] documented as of this encounter Care Teams Wheel Of Fortune Dealer Relationship Specialty Start Date End Date Caitlyn Bowie MD [facility] 1 [place] [address] PCP - General Internal Medicine 05/06/21 Henry Kelly MD Pulmonary Department 175 [facility], [address] [place] [address] Physician Pulmonary Disease 09/06/17 06/22/20 documented as of this encounter
--- OUTSIDE RECORDS SUMMARY | 2024-08-08 15:52 | XMS_ITS | Encounter Summary ---
Author Organization [facility] Address [address] [place] [address] Care Team Providers Care Ad Clerk Name Role Phone Brennan Burnett MD Primary Care Provider Unavailab Hayden Montes MD Unavailable [phone] Pallavi Flood NP Unavailable [phone]- [phone] Caitlyn Bowie MD Primary Care Provider Unava ilable Encounter Details Date Type Department Care Team Description 06/02/2020 Census Clerk Report Medical Records [address] [place] [address] Abstract, Provider Social History Tobacco Use Types [...] on filedocumented in this encounter Care Teams Ad Clerk Relationship Specialty Start Date End Date Brennan Burnett MD PCP - General Internal Medicine 05/27/20 12/07/21 Caitlyn Bowie MD [address] [place] [address] PCP - General Internal Medicine 12/08/21 Hayden Shah MD [address] [place] [address] Specialist Cardiovascular Disease 09/01/20 Pallavi Flood NP [address] [place] [phone] Cardiology 09/01/20 documented as of this encounter
--- OUTSIDE RECORDS SUMMARY | 2024-08-08 15:52 | XMS_ITS | Encounter Summary ---
Author Organization [facility] and [facility] Address [address] [place] [address] Care Team Providers Care Horse Stud Worker Name Role Phone Caitlyn Bowie MD Primary Care Provider +1- [phone] Encounter Details Date Type Department Care Team (Late st Contact Info) Description 03/01/2021 Scanned Document INTERFACE DEFAULT [address] [place] [address] System, Provider Not In Social History Tobacco [...] [facility] [address] [facility] [address] [place] [address] Ronald Mills MD [address] [place] [address] [address] [place] [address] documented as of this encounter Visit Diagnoses Not on filedocumented in this encounter Additional Health Concerns Infection Onset Date Last Indicated Resolved Time COVID-19 03/05/2022 03/05/2022 03/15/2022 7:18 PM EDT Assessment Noted Time PHQ-9 Depression Total Score: 2 11/07/19 19 2:06 PM EDT documented as of this encounter Care Teams Horse Stud Worker Relationship Specialty Start Date End Date Caitlyn Bowie MD [address] [address] PCP - General Internal Medicine 05/06/21 documented as of this encounter
--- OUTSIDE RECORDS SUMMARY | 2024-08-08 15:52 | XMS_ITS | Encounter Summary ---
Author Organization [facility] and [facility] Address [address] [place] [address] Care Team Providers Care Customer Program Specialist Name Role Phone Caitlyn Bowie MD Primary Care Provider +1- [phone] Encounter Details Date Type Department Care Team (Late st Contact Info) Description 02/08/2021 Scanned Document INTERFACE DEFAULT [address] [place] [address] System, Provider Not In Social History Tobacco [...] at [facility] 240 [facility] Building [address] [place] [address] Ronald Mills MD [address] [place] [address] [address] [place] [address] documented as of this encounter Visit Diagnoses Not on filedocumented in this encounter Additional Health Concerns Infection Onset Date Last Indicated Resolved Time COVID-19 03/05/2022 03/05/2022 03/15/2022 7:18 PM EDT Assessment Noted Time PHQ-9 Depression Total Score: 2 11/07/19 19 2:06 PM EDT documented as of this encounter Care Teams Customer Program Specialist Relationship Specialty Start Date End Date Caitlyn Bowie MD [address] [address] PCP - General Internal Medicine 05/06/21 documented as of this encounter
--- OUTSIDE RECORDS SUMMARY | 2024-08-08 15:52 | XMS_ITS | Encounter Summary ---
Author Organization [facility] Address [address] [place] [address] Care Team Providers Care Control Panel Assembler Name Role Phone Sharon Vides Primary Care Provider Brennan Castro MD Primary Care Provider Unavailab Hayden Montes MD Unavailable [phone] Pallavi Flood NP Unavailable +1- [phone] Caitlyn Bowie MD Primary Care Provider Johnathon shaver Encounter Details Date Type Department Care Team Description 11/20/2018 Pt. Non Urgent Medic al Question Pulmonology - [place] 175 [facility] [address] [place] [address] Henry Kelly MD Social History [...] you ever get the pft result from [facility] (Dr. Menjivar)? If so did you request a new Bipap from [employer]? I hope you and your family had a good vacation. Fond regards, Jovana Malik documented in this encounter Plan of Treatment Not on file documented as of this encounter Visit Diagnoses Not on filedocumented in this encounter Care Teams Control Panel Assembler Relationship Specialty Start Date End Date Sharon Vides PCP - General Internal Medicine 08/02/18 05/26/20 Brennan Burnett MD PCP - General Internal Medicine 05/27/20 12/07/21 Caitlyn Bowie MD [address] [place] [address] PCP - General Internal Medicine 12/08/21 Hayden Shah MD [address] [place] [address] Specialist Cardiovascular Disease 09/01/20 Pallavi Flood NP [address] [place] [address] Cardiology 09/01/20 documented as of this encounter
--- OUTSIDE RECORDS SUMMARY | 2024-08-08 15:52 | XMS_ITS | Encounter Summary ---
Author Organization [facility] and [facility] Address [address] [place] [address] Care Team Providers Care Translator Interpreter Name Role Phone Caitlyn Bowie MD Primary Care Provider +1- [phone] Encounter Details Date Type Department Care Team (Late st Contact Info) Description 02/25/2021 Scanned Document INTERFACE DEFAULT [address] [place] [address] System, Provider Not In Social History Tobacco [...] [facility] 240 [facility] Building [address] [place] [address] Ronald Mills MD [address] [place] [address] [address] [place] [address] documented as of this encounter [...] documented as of this encounter Care Teams Translator Interpreter Relationship Specialty Start Date End Date Caitlyn Bowie MD [address] [address] PCP - General Internal Medicine 05/06/21 documented as of this encounter
--- OUTSIDE RECORDS SUMMARY | 2024-08-08 15:52 | XMS_ITS | Encounter Summary ---
Author Organization [facility] Address [address] [place] [address] Care Team Providers Care Chief Meter Reader Name Role Phone Brennan Burnett MD Primary Care Provider Unavailab Hayden Montes MD Unavailable [phone] Pallavi Flood NP Unavailable [phone] Caitlyn Bowie MD Primary Care Provider Unava ilable Encounter Details Date Type Department Care Team Description 09/28/2020 SCAN Medical Records [address] [place] [address] Abstract, Provider Social History Tobacco Use Types [...] filedocumented in this encounter Care Teams Chief Meter Reader Relationship Specialty Start Date End Date Brennan Burnett MD PCP - General Internal Medicine 05/27/20 12/07/21 Caitlyn Bowie MD [address] [place] [address] PCP - General Internal Medicine 12/08/21 Hayden Shah MD [address] [place] [address] Specialist Cardiovascular Disease 09/01/20 Pallavi Flood NP [address] [place] [address] Cardiology 09/01/20 documented as of this encounter
--- OUTSIDE RECORDS SUMMARY | 2024-08-08 15:52 | XMS_ITS | Encounter Summary ---
Author Organization [facility] and [facility] Address [address] [place] [address] Care Team Providers Care Grommet Worker Name Role Phone Caitlyn Bowie MD Primary Care Provider +1- [phone] Encounter Details Date Type Department Care Team (Late st Contact Info) Description 11/09/2014 Scanned Document [facility] Health Information Management [address] [place] [address] External, Provider Social History Tobacco Use Types [...] Center at [facility] 240 [facility] Building [address] [place] [address], [place] [id number] Ronald Mills MD [address] [facility] [address] [place] [address] documented as of this encounter Visit Diagnoses Not on filedocumented in this encounter Additional Health Concerns Infection Onset Date Last Indicated Resolved Time COVID-19 03/05/2022 03/05/2022 03/15/2022 7:18 PM EDT documented as of this encounter Care Teams Grommet Worker Relationship Specialty Start Date End Date Caitlyn Bowie MD 3400 [facility] 1 [place] [address] PCP - General Internal Medicine 05/06/21 Henry Kelly MD Pulmonary Department 175 [facility], [address] [place] [address] Physician Pulmonary Disease 09/06/17 06/22/20 documented as of this encounter
--- OUTSIDE RECORDS SUMMARY | 2024-08-08 15:52 | XMS_ITS | Encounter Summary ---
Author Organization [facility] and [facility] Address [address] [place] [address] Care Team Providers Care Human Resources File Clerk Name Role Phone Caitlyn Bowie MD Primary Care Provider +1- [phone] Encounter Details Date Type Department Care Team (Late st Contact Info) Description 10/07/2013 Scanned Document Thoracic Oncology Program at [address] [address] Suzy Kong MD [address] [place] [address] Social History Tobacco Use Types Packs/Day [...] – [facility] 240 [facility] Building [address] [place], [place] [phone] Ronald Mills MD 240 [facility] A[address] [place] [address] documented as of this encounter Visit Diagnoses Not on filedocumented in this encounter Additional Health Concerns Infection Onset Date Last Indicated Resolved Time COVID-19 03/05/2022 03/05/2022 03/15/2022 7:18 PM EDT documented as of this encounter Care Teams Human Resources File Clerk Relationship Specialty Start Date End Date Caitlyn Bowie MD 3400 [facility] [address] [place] [address] PCP - General Internal Medicine 05/06/21 Henry Kelly MD Pulmonary Department 175 [facility], [address] [place] [address] Physician Pulmonary Disease 09/06/17 06/22/20 documented as of this encounter
--- OUTSIDE RECORDS SUMMARY | 2024-08-08 15:52 | XMS_ITS | Encounter Summary ---
Author Organization [facility] and [facility] Address [address] [place] [address] Care Team Providers Care Line Dancer Name Role Phone Caitlyn Bowie MD Primary Care Provider +1- [phone] Encounter Details Date Type Department Care Team (Late st Contact Info) Description 11/29/2017 Scanned Document [facility] Health Information Management [address] [place] [address] External, Provider Social History Tobacco Use Types [...] at [facility] 240 [facility] Building [address] [place], [place] [id number] Ronald Mills MD 240 [facility] [address] [place] [address] documented as of this encounter [...] documented as of this encounter Care Teams Line Dancer Relationship Specialty Start Date End Date Caitlyn Bowie MD 3400 [facility] 1 [place] [address] PCP - General Internal Medicine 05/06/21 Henry Kelly MD Pulmonary Department 175 [facility], [address] [place] [address] Physician Pulmonary Disease 09/06/17 06/22/20 documented as of this encounter
--- OUTSIDE RECORDS SUMMARY | 2024-08-08 15:52 | XMS_ITS | Encounter Summary ---
Author Organization [facility] Address [address] [place] [address] Care Team Providers Care Production Designer Name Role Phone Brennan Burnett MD Primary Care Provider Unavailab Hayden Montes MD Unavailable [phone] Pallavi Flood NP Unavailable [phone]- [phone] Caitlyn Bowie MD Primary Care Provider Unava ilable Encounter Details Date Type Department Care Team Description 09/15/2020 SCAN Medical Records [address] [place] [address] Abstract, Provider Social History Tobacco Use Types [...] Name Priority Date/Time Associated Diagnosis Comments OUTSIDE LAB Routine 09/15/2020 documented in this encounter Results * OUTSIDE LAB (09/15/2020) Provider Abstract LAB documented in this encounter Visit Diagnoses Not on filedocumented in this encounter Care Teams Production Designer Relationship Specialty Start Date End Date Brennan Burnett MD PCP - General Internal Medicine 05/27/20 12/07/21 Caitlyn Bowie MD [address] [place] [address] PCP - General Internal Medicine 12/08/21 Hayden Shah MD [address] [place] [address] Specialist Cardiovascular Disease 09/01/20 Pallavi Flood NP [address] [place] [address] Cardiology 09/01/20 documented as of this encounter
--- OUTSIDE RECORDS SUMMARY | 2024-08-08 15:52 | XMS_ITS | Encounter Summary ---
Author Organization [facility] and [facility] Address [address] [place] [address] Care Team Providers Care Customer Counter Representative Name Role Phone Caitlyn Bowie MD Primary Care Provider +1- [phone] Encounter Details Date Type Department Care Team (Late st Contact Info) Description 02/11/2021 Scanned Document INTERFACE DEFAULT [address] [place] [address] System, Provider Not In Social History Tobacco [...] [facility] 240 [facility] Building [address] [place] [address] Ronald Mills MD [address] [place] [address] [address] [place] [address] documented as of this [...] as of this encounter Care Teams Customer Counter Representative Relationship Specialty Start Date End Date Caitlyn Bowie MD [address] [address] PCP - General Internal Medicine 05/06/21 documented as of this encounter
--- OUTSIDE RECORDS SUMMARY | 2024-08-08 15:52 | XMS_ITS | Encounter Summary ---
Author Organization [facility] Address [address] [place] [address] Care Team Providers Care Executive Sous Chef Name Role Phone Caitlyn Bowie MD Primary Care Provider +1- [phone] Encounter Details Date Type Department Care Team (Late st Contact Info) Description 12/21/2020 Scanned Document INTERFACE DEFAULT [address] [place] [address] System, Provider Not In Social History Tobacco [...] at [facility] 240 [facility] Building [address] [place] [address] Ronald Mills MD [address] [place] [address] [address] [place] [address] documented as of this encounter Visit Diagnoses Not on filedocumented in this encounter Additional Health Concerns Infection Onset Date Last Indicated Resolved Time COVID-19 03/05/2022 03/05/2022 03/15/2022 7:18 PM EDT Assessment Noted Time PHQ-9 Depression Total Score: 2 11/07/19 19 2:06 PM EDT documented as of this encounter Care Teams Executive Sous Chef Relationship Specialty Start Date End Date Caitlyn Bowie MD [address] [address] PCP - General Internal Medicine 05/06/21 documented as of this encounter
--- OUTSIDE RECORDS SUMMARY | 2024-08-08 15:52 | XMS_ITS | Encounter Summary ---
[facility] Organization [facility] Address [address] [place] [address] Care Team Providers Care English Tutor Name Role Phone Brennan Burnett MD Primary Care Provider Unavailab Hayden Montes MD Unavailable [phone] Pallavi Flood NP Unavailable [phone]- [phone] Caitlyn Bowie MD Primary Care Provider Unava ilable Encounter Details Date Type Department Care Team Description 08/25/2020 Attic Blower Report Medical Records [address] [place] [address] Abstract, Provider Social History Tobacco Use Types [...] Associated Diagnosis Comments OUTSIDE VASCULAR STUDY Routine 08/21/2020 OUTSIDE VASCULAR STUDY Routine 08/21/2020 OUTSIDE LAB Routine 08/21/2020 documented in this encounter Results * OUTSIDE LAB (08/21/2020) Provider Default LAB * OUTSIDE VASCULAR STUDY (08/21/2020) Provider Default CARDIOLOGY * OUTSIDE VASCULAR STUDY (08/21/2020) Provider Default CARDIOLOGY documented in this encounter Visit Diagnoses Not on filedocumented in this encounter Care Teams English Tutor Relationship Specialty Start Date End Date Brennan Burnett MD PCP - General Internal Medicine 05/27/20 12/07/21 Caitlyn Bowie MD [address] [place] [address] PCP - General Internal Medicine 12/08/21 Hayden Shah MD [address] [place] [address] Specialist Cardiovascular Disease 09/01/20 Pallavi Flood NP [address] [place] [address] Cardiology 09/01/20 documented as of this encounter
--- OUTSIDE RECORDS SUMMARY | 2024-08-08 15:52 | XMS_ITS | Encounter Summary ---
Author Organization [facility] and [facility] Address [address] [place] [address] Care Team Providers Care Energy Economist Name Role Phone Caitlyn Bowie MD Primary Care Provider +1- [phone] Encounter Details Date Type Department Care Team (Late st Contact Info) Description 01/27/2021 Scanned Document Cancer Center at [address] [address] External, Provider Social History Tobacco Use Types [...] [facility] 240 [facility] Building [address] [place], [place] [address] Ronald Mills MD [address] [place] [address] [address] [place] [address] documented as of this encounter [...] documented as of this encounter Care Teams Energy Economist Relationship Specialty Start Date End Date Caitlyn Bowie MD [address] [address] PCP - General Internal Medicine 05/06/21 documented as of this encounter
--- OUTSIDE RECORDS SUMMARY | 2024-08-08 15:52 | XMS_ITS | Encounter Summary ---
Author Organization [facility] and [facility] Address [address] [place] [address] Care Team Providers Care Dry Room Operator Name Role Phone Caitlyn Bowie MD Primary Care Provider +1- [phone] Encounter Details Date Type Department Care Team (Late st Contact Info) Description 02/02/2021 Scanned Document [facility] Health Information Management [address] [place] [address] External, Provider Social History Tobacco Use Types [...] [facility] Center at [facility] 240 [facility] Building [address] [place], [place] [address] Ronald Mills MD [address] [place] [address] [address] [place] [address] documented as of this encounter Visit Diagnoses Not on filedocumented in this encounter Additional Health Concerns Infection Onset Date Last Indicated Resolved Time COVID-19 03/05/2022 03/05/2022 03/15/2022 7:18 PM EDT Assessment Noted Time PHQ-9 Depression Total Score: 2 11/07/19 19 2:06 PM EDT documented as of this encounter Care Teams Dry Room Operator Relationship Specialty Start Date End Date Caitlyn Bowie MD [address] [address] PCP - General Internal Medicine 05/06/21 documented as of this encounter
--- OUTSIDE RECORDS SUMMARY | 2024-08-08 15:52 | XMS_ITS | Encounter Summary ---
Author Organization [facility] and [facility] Address [address] [place] [address] Care Team Providers Care Oceanic Sciences Professor Name Role Phone Caitlyn Bowie MD Primary Care Provider +1- [phone] Encounter Details Date Type Department Care Team (Late st Contact Info) Description 03/08/2021 Scanned Document INTERFACE DEFAULT [address] [place] [address] System, Provider Not In Social History Tobacco [...] [facility] 240 [facility] Building [address] [place] [address] Ronald Mills MD [address] [place] [address] [address] [place] [address] documented as of this encounter [...] documented as of this encounter Care Teams Oceanic Sciences Professor Relationship Specialty Start Date End Date Caitlyn Bowie MD [facility] [address] [address] PCP - General Internal Medicine 05/06/21 documented as of this encounter
--- OUTSIDE RECORDS SUMMARY | 2024-08-08 15:52 | XMS_ITS | Encounter Summary ---
Author Organization [facility] and [facility] Address [address] [place] [address] Care Team Providers Care Gunite Nozzle Operator Name Role Phone Caitlyn Bowie MD Primary Care Provider +1- [phone] Encounter Details Date Type Department Care Team (Late st Contact Info) Description 02/15/2021 Scanned Document INTERFACE DEFAULT [address] [place] [address] System, Provider Not In Social History Tobacco [...] at [facility] 240 [facility] Building [address] [place] [address] Ronald Mills MD [address] [place] [address] [address] [place] [address] documented as of this encounter Visit Diagnoses Not on filedocumented in this encounter Additional Health Concerns Infection Onset Date Last Indicated Resolved Time COVID-19 03/05/2022 03/05/2022 03/15/2022 7:18 PM EDT Assessment Noted Time PHQ-9 Depression Total Score: 2 11/07/19 19 2:06 PM EDT documented as of this encounter Care Teams Gunite Nozzle Operator Relationship Specialty Start Date End Date Caitlyn Bowie MD [address] [address] PCP - General Internal Medicine 05/06/21 documented as of this encounter
--- OUTSIDE RECORDS SUMMARY | 2024-08-08 15:52 | XMS_ITS | Encounter Summary ---
Author Organization [facility] and [facility] Address [address] [place] [address] Care Team Providers Care Crop Supervisor Name Role Phone Caitlyn Bowie MD Primary Care Provider +1- [phone] Encounter Details Date Type Department Care Team (Late st Contact Info) Description 11/09/2020 Scanned Document INTERFACE DEFAULT [address] [place] [address] System, Provider Not In Social History Tobacco [...] [facility] 240 [facility] Building [address] [place] [address] Ronald Mills MD [address] [place] [address] [address] [place] [address] documented as of this encounter Visit Diagnoses Not on filedocumented in this encounter Additional Health Concerns Infection Onset Date Last Indicated Resolved Time COVID-19 03/05/2022 03/05/2022 03/15/2022 7:18 PM EDT Assessment Noted Time PHQ-9 Depression Total Score: 2 11/07/19 19 2:06 PM EDT documented as of this encounter Care Teams Crop Supervisor Relationship Specialty Start Date End Date Caitlyn Bowie MD [address] [address] PCP - General Internal Medicine 05/06/21 documented as of this encounter
--- OUTSIDE RECORDS SUMMARY | 2024-08-08 15:52 | XMS_ITS | Encounter Summary ---
Author Organization [facility] and [facility] Address [address] [place] [address] Care Team Providers Care Water Filterer Helper Name Role Phone Caitlyn Bowie MD Primary Care Provider +1- [phone] Encounter Details Date Type Department Care Team (Late st Contact Info) Description 06/25/2015 Scanned Document [facility] Health Information Management [address] [place] [address] External, Provider Social History Tobacco Use Types [...] [facility] 240 [facility] Building [address] [place], [place] [address] Ronald Mills MD 240 [facility] A[address] [place] [address] documented as of this encounter Visit Diagnoses Not on filedocumented in this encounter Additional Health Concerns Infection Onset Date Last Indicated Resolved Time COVID-19 03/05/2022 03/05/2022 03/15/2022 7:18 PM EDT documented as of this encounter Care Teams Water Filterer Helper Relationship Specialty Start Date End Date Caitlyn Bowie MD 3400 [facility] 1 [place] [address] PCP - General Internal Medicine 05/06/21 Henry Kelly MD Pulmonary Department 175 [facility], [address] [place] [address] Physician Pulmonary Disease 09/06/17 06/22/20 documented as of this encounter
--- OUTSIDE RECORDS SUMMARY | 2024-08-08 15:52 | XMS_ITS | Encounter Summary ---
Author Organization [facility] and [facility] Address [address] [place] [address] Care Team Providers Care Robotics Specialist Name Role Phone Caitlyn Bowie MD Primary Care Provider +1- [phone] Encounter Details Date Type Department Care Team (Late st Contact Info) Description 02/24/2021 Scanned Document INTERFACE DEFAULT [address] [place] [address] System, Provider Not In Social History Tobacco [...] [facility] [address] [facility] [address] [place] [address] Ronald Mills MD [address] [place] [address] [address] [place] [address] documented as of this encounter [...] documented as of this encounter Care Teams Robotics Specialist Relationship Specialty Start Date End Date Caitlyn Bowie MD [address] [address] PCP - General Internal Medicine 05/06/21 documented as of this encounter
--- OUTSIDE RECORDS SUMMARY | 2024-08-08 15:52 | XMS_ITS | Continuity of Care Document ---
Author Organization [facility] Address [address] [place] [address] [address] [place] [address] Phone Care Team Providers Care Yarn Preparation Supervisor Name Role Phone Musa Hughes M.D. Unavailable [...] Encounter [facility], [address] [place] [address], [id number], tel:[phone] [facility] [place] No Information Saul Vigil. [address] [place] [address], [address] [place] [address] , . tel: [phone] Exam Level V [facility], [address] [place] [address], [id number], tel:[phone] [facility] [place] Visual Field Defect UnspOptic NeuritisLow Tension GlaucomaHeadacheH emangioma, Unspecified SiteMultiple SclerosisPhotopsi aDiplopiaConverge nce InsufficiencyDry Eye Syndrome Huy Foster. [address] [place] [address], [address] [place] [address] , . tel: [phone] Referring Provider: MD Mariama Persaud, [address] [place] [address] [place], [id number]. tel:[phone] New Pt. Level V [facility] Renea Carrillo, [address] [place] [address], [id number], tel:[phone] [facility] [place] - (chief complaint) - (chief complaint) - (chief complaint) - (chief complaint) - (chief complaint) - (chief complaint) Optic NeuritisHeadacheV isual Field Defect UnspLow Tension GlaucomaLow Tension GlaucomaOptic NeuritisSeizure DisorderVisual Field Defect UnspHemangioma, Unspecified SiteConvergence InsufficiencyCoag defect von Willebrand dis 1 Huy Foster. [address] [place] [address], [id number] , . tel: [phone] Referring Provider: MD Mariama Persaud, [address] [place] [address] [place], [id number]. tel:[phone] Family History Family Member Type Diagnosis Age At Onset Sister Problem (finding) Leukemia Mother Problem (finding) Cancer, lung Payers Payer name Insurance type Covered libertarian ID Authoriza tion(s) Medicare Primary [place] [id number] BCBS NATIONAL PLAN [id number] Social History Type Description Quantity Date Captured [...]
--- OUTSIDE RECORDS SUMMARY | 2024-08-08 15:52 | XMS_ITS | Encounter Summary ---
Author Organization [facility] and [facility] Address [address] [place] [address] Care Team Providers Care Product Support Analyst Name Role Phone Caitlyn Bowie MD Primary Care Provider +1- [phone] Encounter Details Date Type Department Care Team (Late st Contact Info) Description 01/07/2014 Documentation [facility] [address] [place] [address] Shilpi Ibarra [address] [place] [address] Social History Tobacco Use Types Packs/Day Years [...] from the original note were not included. [facility] Progress Note This is a 70 [...] at [facility] [address] [facility] [address] [place], [place] [address] Ronald Mills MD [address] [place] [address] documented as of this encounter Visit Diagnoses Not on filedocumented in this encounter Additional Health Concerns Infection Onset Date Last Indicated Resolved Time COVID-19 03/05/2022 03/05/2022 03/15/2022 7:18 PM EDT documented as of this encounter Care Teams Product Support Analyst Relationship Specialty Start Date End Date Caitlyn Bowie MD [address] [place] [address] PCP - General Internal Medicine 05/06/21 Henry Kelly MD Pulmonary Department 175 [facility], [address] [place] [address] Physician Pulmonary Disease 09/06/17 06/22/20 documented as of this encounter
--- OUTSIDE RECORDS SUMMARY | 2024-08-08 15:52 | XMS_ITS | Encounter Summary ---
Author Organization [facility] and [facility] Address [address] [place] [address] Care Team Providers Care Chair Lift Operator Name Role Phone Caitlyn Bowie MD Primary Care Provider +1- [phone] Encounter Details Date Type Department Care Team (Late st Contact Info) Description 02/07/2021 Scanned Document INTERFACE DEFAULT [address] [place] [address] System, Provider Not In Social History Tobacco [...] [facility] [address] [facility] Building [address] [place] [address] Ronald Mills MD [address] [place] [address] [address] [place] [address] documented as of this encounter [...] documented as of this encounter Care Teams Chair Lift Operator Relationship Specialty Start Date End Date Caitlyn Bowie MD [address] [address] PCP - General Internal Medicine 05/06/21 documented as of this encounter
--- OUTSIDE RECORDS SUMMARY | 2024-08-08 15:53 | XMS_ITS | Encounter Summary ---
Author Organization [facility] Address [address] [place] [address] Care Team Providers Care Legal Support Manager Name Role Phone Sharon Vides Primary Care Provider Brennan Castro MD Primary Care Provider Unavailab Hayden Montes MD Unavailable [phone] Pallavi Flood NP Unavailable [phone]- [phone] Caitlyn Bowie MD Primary Care Provider Johnathon shaver Encounter Details Date Type Department Care Team Description 12/28/2018 Telephone Pulmonology - [address] [place] [address] Henry Kelly MD Social History [...] Telephone Encounter - Henry Kelly MD - 12/28/2018 1:28 PM EDT Pt needs a stat VQ scan for r/o PE, left sided chest pain documented in this encounter Plan of Treatment Not on file documented as of this encounter Visit Diagnoses Not on filedocumented in this encounter Care Teams Legal Support Manager Relationship Specialty Start Date End Date Sharon Vides PCP - General Internal Medicine 08/02/18 05/26/20 Brennan Burnett MD PCP - General Internal Medicine 05/27/20 12/07/21 Caitlyn Bowie MD [address] [place] [address] PCP - General Internal Medicine 12/08/21 Hayden Shah MD [address] [place] [address] Specialist Cardiovascular Disease 09/01/20 Pallavi Flood NP [address] [place] [address] Cardiology 09/01/20 documented as of this encounter
--- OUTSIDE RECORDS SUMMARY | 2024-08-08 15:53 | XMS_ITS | Encounter Summary ---
Author Organization [facility] Address [address] [place] [address] Care Team Providers Care Munitions Factory Worker Name Role Phone Sharon Vides Primary Care Provider Brennan Castro MD Primary Care Provider Unavailab Hayden Montes MD Unavailable [phone] Pallavi Flood NP Unavailable [phone] Caitlyn Bowie MD Primary Care Provider Johnathon shaver Encounter Details Date Type Department Care Team Description 12/28/2018 Orders Only Medical Records [address] [place] [address] Abstract, Provider Aspiration pneumonia, unspecified aspiration pneumonia [...] (HCC) documented in this encounter Care Teams Munitions Factory Worker Relationship Specialty Start Date End Date Sharon Vides PCP - General Internal Medicine 08/02/18 05/26/20 Brennan Burnett MD PCP - General Internal Medicine 05/27/20 12/07/21 Caitlyn Bowie MD [address] [place] [address] PCP - General Internal Medicine 12/08/21 Hayden Shah MD [address] [place] [address] Specialist Cardiovascular Disease 09/01/20 [address] NP [address] [place] [address] Cardiology 09/01/20 documented as of this encounter
--- OUTSIDE RECORDS SUMMARY | 2024-08-08 15:53 | XMS_ITS | Encounter Summary ---
Author Organization [facility] and [facility] Address [address] [place] [address] Care Team Providers Care Crusher Name Role Phone Caitlyn Bowie MD Primary Care Provider +1- [phone] Encounter Details Date Type Department Care Team (Late st Contact Info) Description 02/02/2018 Scanned Document REPLACED BY [facility] Health Information Management [address] [place] [address] External, Provider Social History Tobacco Use Types [...] at [facility] [address] [facility] [address] [place], [place] [id number] Ronald Mills MD [address] [facility] [address] [place] [address] documented as of this encounter Visit Diagnoses Not on filedocumented in this encounter Additional Health Concerns Infection Onset Date Last Indicated Resolved Time COVID-19 03/05/2022 03/05/2022 03/15/2022 7:18 PM EDT documented as of this encounter Care Teams Crusher Relationship Specialty Start Date End Date Caitlyn Bowie MD [address] [facility] 1 [place] [address] PCP - General Internal Medicine 05/06/21 Henry Kelly MD Pulmonary Department 175 [facility], [address] [place] [address] Physician Pulmonary Disease 09/06/17 06/22/20 documented as of this encounter
--- OUTSIDE RECORDS SUMMARY | 2024-08-08 15:53 | XMS_ITS | Encounter Summary ---
Author Organization [facility] Address [address] [place] [address] Care Team Providers Care Lawn Sprinkler Servicer Name Role Phone Sharon Vides Primary Care Provider Brennan Castro MD Primary Care Provider Unavailab Hayden Montes MD Unavailable [phone] Pallavi Flood NP Unavailable [phone] Caitlyn Bowie MD Primary Care Provider Johnathon shaver Encounter Details Date Type Department Care Team Description 10/03/2018 Pt. Non Urgent Medic al Question Pulmonology - [place] [address] [facility] [address] [place] [address] Henry Kelly MD Social History [...] Dr Menjivar's office had scheduled it in [place] earlier in the day of my appointment [...] on filedocumented in this encounter Care Teams Lawn Sprinkler Servicer Relationship Specialty Start Date End Date Sharon Vides PCP - General Internal Medicine 08/02/18 05/26/20 Brennan Burnett MD PCP - General Internal Medicine 05/27/20 12/07/21 Caitlyn Bowie MD [address] [place] [address] PCP - General Internal Medicine 12/08/21 Hayden Shah MD [address] [place] [address] Specialist Cardiovascular Disease 09/01/20 Pallavi Flood NP [address] [place] [address] Cardiology 09/01/20 documented as of this encounter
--- OUTSIDE RECORDS SUMMARY | 2024-08-08 15:53 | XMS_ITS | Encounter Summary ---
Author Organization [facility] and [facility] Address [address] [place] [address] Care Team Providers Care Dish Machine Operator Name Role Phone Caitlyn Bowie MD Primary Care Provider [phone]- [phone] Encounter Details Date Type Department Care Team (Late st Contact Info) Description 01/27/2018 Scanned Document [facility] Health Information Management [address] [place] [address] External, Provider Social History Tobacco Use Types [...] [facility] [address] [facility] [address] [place], [place] [id number] Ronald Mills MD [address] [facility] [address] [place] [address] documented as of this encounter Visit Diagnoses Not on filedocumented in this encounter Additional Health Concerns Infection Onset Date Last Indicated Resolved Time COVID-19 03/05/2022 03/05/2022 03/15/2022 7:18 PM EDT documented as of this encounter Care Teams Dish Machine Operator Relationship Specialty Start Date End Date Caitlyn Bowie MD 34[address] [facility] 1 [place] [address] PCP - General Internal Medicine 05/06/21 Henry Kelly MD Pulmonary Department 175 [facility], [address] [place] [address] Physician Pulmonary Disease 09/06/17 06/22/20 documented as of this encounter
--- OUTSIDE RECORDS SUMMARY | 2024-08-08 15:53 | XMS_ITS | Encounter Summary ---
Author Organization [facility] and [facility] Address [address] [place] [address] Care Team Providers Care Operator Helper Name Role Phone Caitlyn Bowie MD Primary Care Provider [phone]- [phone] Encounter Details Date Type Department Care Team (Late st Contact Info) Description 03/11/2015 Scanned Document [facility] Health Information Management [address] [place] [address] External, Provider Social History Tobacco Use Types [...] [facility] [address] [facility] Building [address] [place], [place] [id number] Ronald Mills MD 240 [facility] [address] [place] [address] documented as of this encounter Procedures Procedure Name Priority Date/Time Associated Diagnosis Comments LAB SCAN Routine 03/11/2015 documented in this encounter Results * Lab Scan (03/11/2015) Blood specimen (specimen) us Provider External LAB BLOOD ORDERABLES Edited Re sult - Final [facility] documented in this encounter Visit Diagnoses Not on filedocumented in this encounter Additional Health Concerns Infection Onset Date Last Indicated Resolved Time COVID-19 03/05/2022 03/05/2022 03/15/2022 7:18 PM EDT documented as of this encounter Care Teams Operator Helper Relationship Specialty Start Date End Date Caitlyn Bowie MD 3400 [facility] 1 [place] [address] PCP - General Internal Medicine 05/06/21 Henry Kelly MD Pulmonary Department [address] [facility], [address] [place] [address] Physician Pulmonary Disease 09/06/17 06/22/20 documented as of this encounter
--- OUTSIDE RECORDS SUMMARY | 2024-08-08 15:53 | XMS_ITS | Encounter Summary ---
Author Organization [facility] Address [address] [place] [address] Care Team Providers Care Wheel Polisher Name Role Phone Sharon Vides Primary Care Provider Brennan Castro MD Primary Care Provider Unavailab Hayden Montes MD Unavailable [phone] Pallavi Folod NP Unavailable [phone] Caitlyn Bowie MD Primary Care Provider Johnathon shaver Encounter Details Date Type Department Care Team Description 08/28/2018 Calibration Tester Report Medical Records [address] [place] [address] Abstract, Provider Social History Tobacco Use Types [...] on filedocumented in this encounter Care Teams Wheel Polisher Relationship Specialty Start Date End Date Sharon Vides PCP - General Internal Medicine 08/02/18 05/26/20 Brennan Burnett MD PCP - General Internal Medicine 05/27/20 12/07/21 Caitlyn Bowie MD [address] [place] [address] PCP - General Internal Medicine 12/08/21 Hayden Shah MD [address] [place] [address] Specialist Cardiovascular Disease 09/01/20 Pallavi Flood NP [address] [place] [address] Cardiology 09/01/20 documented as of this encounter
--- OUTSIDE RECORDS SUMMARY | 2024-08-08 15:53 | XMS_ITS | Encounter Summary ---
Author Organization [facility] and [facility] Address [address] [place] [address] Care Team Providers Care Gravure Printing Machinist Name Role Phone Caitlyn Bowie MD Primary Care Provider [phone]- [phone] Encounter Details Date Type Department Care Team (Late st Contact Info) Description 01/26/2018 Scanned Document [facility] Health Information Management [address] [place] [address] External, Provider Social History Tobacco Use Types [...] [facility] [address] [facility] Building [address] [place] [address] Ronald Mills MD [address] [facility] [address] [place] [address] documented as of this encounter Procedures [...] documented as of this encounter Care Teams Gravure Printing Machinist Relationship Specialty Start Date End Date Caitlyn Bowie MD 3400 [facility] 1 [place] [address] PCP - General Internal Medicine 05/06/21 Henry Kelly MD Pulmonary Department 175 [facility], [address] [place] [address] Physician Pulmonary Disease 09/06/17 06/22/20 documented as of this encounter
--- OUTSIDE RECORDS SUMMARY | 2024-08-08 15:53 | XMS_ITS | Encounter Summary ---
Author Organization [facility] Address [address] [place] [address] Care Team Providers Care Form Tamping Machine Operator Name Role Phone Caitlyn Bowie MD Primary Care Provider +1- [phone] Encounter Details Date Type Department Care Team (Late st Contact Info) Description 01/28/2018 Scanned Document [facility] Health Information Management [address] [place] [address] External, Provider Social History Tobacco Use Types [...] [facility] Building [address] [place], [place] [address] Ronald Mills MD 240 [facility] [address] [place] [address] documented as of this encounter Visit Diagnoses Not on filedocumented in this encounter Additional Health Concerns Infection Onset Date Last Indicated Resolved Time COVID-19 03/05/2022 03/05/2022 03/15/2022 7:18 PM EDT documented as of this encounter Care Teams Form Tamping Machine Operator Relationship Specialty Start Date End Date Caitlyn Bowie MD 3400 [facility] 1 [place] [address] PCP - General Internal Medicine 05/06/21 Henry Kelly MD Pulmonary Department 175 [facility], [address] [place] [address] Physician Pulmonary Disease 09/06/17 06/22/20 documented as of this encounter
--- OUTSIDE RECORDS SUMMARY | 2024-08-08 15:53 | XMS_ITS | Encounter Summary ---
Author Organization [facility] Address [address] [place] [address] Care Team Providers Care Faculty Support Coordinator Name Role Phone Sharon Vides Primary Care Provider Brennan Castro MD Primary Care Provider Unavailab Hayden Montes MD Unavailable Pallavi Flood NP Unavailable +1- [phone] Caitlyn Bowie MD Primary Care Provider Johnathon shaver Encounter Details Date Type Department Care Team Description 02/07/2019 [facility] Medical Records [address] [place] [address] Landen Aaron DO Social History Tobacco Use [...] on filedocumented in this encounter Care Teams Faculty Support Coordinator Relationship Specialty Start Date End Date Sharon Vides PCP - General Internal Medicine 08/02/18 05/26/20 Brennan Burnett MD PCP - General Internal Medicine 05/27/20 12/07/21 Caitlyn Bowie MD [address] [place] [address] PCP - General Internal Medicine 12/08/21 Hayden Shah MD [address] [place], [place] [address] Specialist Cardiovascular Disease 09/01/20 Pallavi Flood NP [address] [place], [place] [address] Cardiology 09/01/20 documented as of this encounter
--- OUTSIDE RECORDS SUMMARY | 2024-08-08 15:53 | XMS_ITS | Encounter Summary ---
Author Organization [facility] Address [address] [place] [address] Care Team Providers Care Metallurgist Helper Name Role Phone Sharon Vides Primary Care Provider Unava ilable Brennan Burnett MD Primary Care Provider Unavailab Hayden Montes MD Unavailable [phone] Pallavi Flood NP Unavailable [phone]- [phone] Caitlyn Bowie MD Primary Care Provider Unava ilable Reason for Visit * Reason Onset Date Comments hospital follow up 12/17/2018 records Encounter Details Date Type Department Care Team Description 12/17/2018 Telephone Pulmonology [facility] 175 [facility] [address] [place] [address] Henry Kelly MD hospital follow up (records) Social History Tobacco Use Types Packs/Day Years [...] Telephone Encounter - Nasima Sr M.A. - 12/17/2018 4:26 PM EDT Notes are in your review folder. * Telephone Encounter - Holly Noriega M.A. - 12/17/2018 2:35 PM EDT I requested the d/c summary...she has an appointment already tomorrow.. Do you want to just make that the hospital d/c appointment instead of making a new one? Its already 15 minutes... * Telephone Encounter - Kelly Gallo M.A. - 12/17/2018 1:48 PM EDT Medical Records: [phone] Ron (patient services) [phone] * Telephone Encounter - Kelly Gallo M.A. - 12/17/2018 1:46 PM EDT Hospital follow up appointment needed Hospital patient was treated at: [facility] Was this only an ER visit or was the patient admitted to the hospital? Admitted Date of visit if ER visit only: N/A If patient was admitted what was the date of discharge? 12/16/18 Reason/diagnosis for visit or stay: low O2 levels When was the patient told to follow up? JUD Was visit or stay related to an injury? NO If yes, what was the date of injury (DOI)? N/A If yes, was the injury due to N/A documented in this encounter Plan of Treatment Not on file documented as of this encounter Visit Diagnoses Not on filedocumented in this encounter Care Teams Metallurgist Helper Relationship Specialty Start Date End Date Sharon Vides PCP - General Internal Medicine 08/02/18 05/26/20 Brennan Burnett MD PCP - General Internal Medicine 05/27/20 12/07/21 Caitlyn Bowie MD [address] [place] [address] PCP - General Internal Medicine 12/08/21 Hayden Shah MD [address] [place], [place] [address] Specialist Cardiovascular Disease 09/01/20 Pallavi Flood NP [address] [place] [address] Cardiology 09/01/20 documented as of this encounter
--- OUTSIDE RECORDS SUMMARY | 2024-08-08 15:53 | XMS_ITS | Encounter Summary ---
Author Organization [facility] Address [address] [place] [address] Care Team Providers Care Pinion Staker Name Role Phone Caitlyn Bowie MD Primary Care Provider +1- [phone] Encounter Details Date Type Department Care Team (Late st Contact Info) Description 01/30/2018 Scanned Document [facility] Health Information Management [address] [place] [address] External, Provider Social History Tobacco Use Types [...] [facility] at [facility] 240 [facility] [address] [place] [address] Ronald Mills MD 240 [facility] A1 [place] [address] documented as of this encounter [...] documented as of this encounter Care Teams Pinion Staker Relationship Specialty Start Date End Date Caitlyn Bowie MD [facility] 1 [place] [address] PCP - General Internal Medicine 05/06/21 Henry Kelly MD Pulmonary Department 175 [facility], [address] [place] [address] Physician Pulmonary Disease 09/06/17 06/22/20 documented as of this encounter
--- OUTSIDE RECORDS SUMMARY | 2024-08-08 15:53 | XMS_ITS | Encounter Summary ---
Author Organization [facility] Address [address] [place] [address] Care Team Providers Care Signwriter Name Role Phone Sharon Vides Primary Care Provider Unava ilable Brennan Burnett MD Primary Care Provider Unavailab Hayden Montes MD Unavailable [phone] Pallavi Flood NP Unavailable [phone]- [phone] Caitlyn Bowie MD Primary Care Provider Unava ilable Reason for Visit * Reason Onset Date Comments Pulmonary Problem 09/21/2018 IVA REFERRA L NEEDS PFTS Encounter Details Date Type Department Care Team Description 09/21/2018 Telephone Pulmonology - [address] [place] [address] Henry Kelly MD Pulmonary Problem (IVA REFERRAL NEEDS PFTS) Social History Tobacco Use [...] , OP notes and labs faxed to [facility]. * Telephone Encounter - Nasima Sr M.A. - 10/02/2018 11:57 AM EDT I called patient back and she has been scheduled with [facility] for [facility] PFT. * Telephone Encounter [...] her to a Dr Kerwin Menjivar in [place]. Please advise. * Telephone Encounter - Paloma Kelly - 09/21/2018 8:53 AM EDT Symptoms patient is presenting: crackling on her lung If pain or injury related was it due to an accident at work or from a motor vehicle accident? NO If yes, gather [employer] insurance information Date of accident/Injury: How long has patient had these symptoms?: 2 days PCP: Sharon Vides MD [place] / [place] / Product Type: MEDICARE [id number] documented in this encounter Plan of Treatment Not on file documented as of this encounter Visit Diagnoses Not on filedocumented in this encounter Care Teams Signwriter Relationship Specialty Start Date End Date Sharon Vides PCP - General Internal Medicine 08/02/18 05/26/20 Brennan Burnett MD PCP - General Internal Medicine 05/27/20 12/07/21 Caitlyn Bowie MD [address] [place] [address] PCP - General Internal Medicine 12/08/21 Hayden Shah MD [address] [place] [address] Specialist Cardiovascular Disease 09/01/20 Pallavi Flood NP [address] [place] [address] Cardiology 09/01/20 documented as of this encounter
--- OUTSIDE RECORDS SUMMARY | 2024-08-08 15:53 | XMS_ITS | Encounter Summary ---
Author Organization [facility] and [facility] Address [address] [place] [address] Care Team Providers Care Science Editor Name Role Phone Caitlyn Bowie MD Primary Care Provider +1- [phone] Encounter Details Date Type Department Care Team (Late st Contact Info) Description 02/01/2018 Scanned Document [facility] Health Information Management [address] [place] [address] External, Provider Social History Tobacco Use Types [...] [facility] [address] [facility] [address] [place], [place] [id number] Ronald Mills MD 240 [facility] [address]1 [place] [address] documented as of this encounter [...] documented as of this encounter Care Teams Science Editor Relationship Specialty Start Date End Date Caitlyn Bowie MD 3400 [facility] 1 [place] [address] PCP - General Internal Medicine 05/06/21 Henry Kelly MD Pulmonary Department 175 [facility], [address] [place] [address] Physician Pulmonary Disease 09/06/17 06/22/20 documented as of this encounter
--- OUTSIDE RECORDS SUMMARY | 2024-08-08 15:53 | XMS_ITS | Encounter Summary ---
Author Organization [facility] and [facility] Address [address] [place] [address] Care Team Providers Care Diagrammer And Seamer Name Role Phone Caitlyn Bowie MD Primary Care Provider +1- [phone] Encounter Details Date Type Department Care Team (Late st Contact Info) Description 02/19/2015 Scanned Document [facility] Health Information Management [address] [place] [address] External, Provider Social History Tobacco Use Types [...] [facility] [address] [facility] [address] [place], [place] [phone] Ronald Mills MD [address] [facility] [address] [place] [address] documented as of this encounter Procedures Procedure Name Priority Date/Time Associated Diagnosis Comments LAB SCAN Routine 02/19/2015 documented in this encounter Results * Lab Scan (02/19/2015) Blood specimen (specimen) us Provider External LAB BLOOD ORDERABLES Final Res ult [facility] documented in this encounter Visit Diagnoses Not on filedocumented in this encounter Additional Health Concerns Infection Onset Date Last Indicated Resolved Time COVID-19 03/05/2022 03/05/2022 03/15/2022 7:18 PM EDT documented as of this encounter Care Teams Diagrammer And Seamer Relationship Specialty Start Date End Date Caitlyn Bowie MD 3400 [facility] 1 [place] [address] PCP - General Internal Medicine 05/06/21 Henry Kelly MD Pulmonary Department 175 [facility], [address] [place] [address] Physician Pulmonary Disease 09/06/17 06/22/20 documented as of this encounter
--- OUTSIDE RECORDS SUMMARY | 2024-08-08 15:53 | XMS_ITS | Encounter Summary ---
Author Organization [facility] Address [address] [place] [address] Care Team Providers Care Acid Adjuster Name Role Phone Caitlyn Bowie MD Primary Care Provider +1- [phone] Encounter Details Date Type Department Care Team (Late st Contact Info) Description 01/27/2018 Scanned Document [facility] Health Information Management [address] [place] [address] External, Provider Social History Tobacco Use Types [...] [facility] [address] [facility] [address] [place] [address] Ronald Mills MD 240 [facility] A1 [place] [address] documented as of this encounter [...] documented as of this encounter Care Teams Acid Adjuster Relationship Specialty Start Date End Date Caitlyn Bowie MD 3400 [facility] 1 [place] [address] PCP - General Internal Medicine 05/06/21 Henry Kelly MD Pulmonary Department 175 [facility], [address] [place] [address] Physician Pulmonary Disease 09/06/17 06/22/20 documented as of this encounter
--- OUTSIDE RECORDS SUMMARY | 2024-08-08 15:53 | XMS_ITS | Encounter Summary ---
Author Organization [facility] and [facility] Address [address] [place] [address] Care Team Providers Care Sanitary Napkin Machine Tender Name Role Phone Caitlyn Bowie MD Primary Care Provider +1- [phone] Encounter Details Date Type Department Care Team (Late st Contact Info) Description 03/26/2015 Scanned Document Cardiovascular Medicine at [address] [place] [address] Norma Renee MD [address] [place] [phone] Social History Tobacco Use Types Packs/Day Years [...] 1:00 PM EDT Telemedicine Cancer Center at [address] [place], [place] [phone] Ronald Mills MD [address] [place] [address] [address] [place] [address] documented as of this encounter Visit Diagnoses Not on filedocumented in this encounter Additional Health Concerns Infection Onset Date Last Indicated Resolved Time COVID-19 03/05/2022 03/05/2022 03/15/2022 7:18 PM EDT documented as of this encounter Care Teams Sanitary Napkin Machine Tender Relationship Specialty Start Date End Date Caitlyn Bowie MD 3400 [facility] 1 [place] [address] PCP - General Internal Medicine 05/06/21 Henry Kelly MD Pulmonary Department 175 [facility], [address] [place] [address] Physician Pulmonary Disease 09/06/17 06/22/20 documented as of this encounter
--- OUTSIDE RECORDS SUMMARY | 2024-08-08 15:53 | XMS_ITS | Encounter Summary ---
Author Organization [facility] and [facility] Address [address] [place] [address] Care Team Providers Care Transformation Consultant Name Role Phone Caitlyn Bowie MD Primary Care Provider +1- [phone] Encounter Details Date Type Department Care Team (Late st Contact Info) Description 02/02/2018 Scanned Document [facility] Health Information Management [address] [place] [address] External, Provider Social History Tobacco Use Types [...] [facility] 240 [facility] Building [address] [place], [place] [phone] Ronald Mills MD 240 [facility] [address] [place] [address] documented as of this encounter [...] documented as of this encounter Care Teams Transformation Consultant Relationship Specialty Start Date End Date Caitlyn Bowie MD 3400 [facility] 1 [place] [address] PCP - General Internal Medicine 05/06/21 Henry Kelly MD Pulmonary Department 175 [facility], [address] [place] [address] Physician Pulmonary Disease 09/06/17 06/22/20 documented as of this encounter
--- OUTSIDE RECORDS SUMMARY | 2024-08-08 15:53 | XMS_ITS | Encounter Summary ---
Author Organization [facility] Address [address] [place] [address] Care Team Providers Care Binder And Box Builder Name Role Phone Sharon Vides Primary Care Provider Brennan Castro MD Primary Care Provider Unavailab Hayden Montes MD Unavailable [phone] Pallavi Flood NP Unavailable +1- [phone] Caitlyn Bowie MD Primary Care Provider Johnathon shaver Encounter Details Date Type Department Care Team Description 09/05/2018 Night Triage Doc Medical Records [address] [place] [address] Abstract, Provider Social History Tobacco Use Types [...] on filedocumented in this encounter Care Teams Binder And Box Builder Relationship Specialty Start Date End Date Sharon Vides PCP - General Internal Medicine 08/02/18 05/26/20 Brennan Burnett MD PCP - General Internal Medicine 05/27/20 12/07/21 Caitlyn Bowie MD [address] [place] [address] PCP - General Internal Medicine 12/08/21 Hayden Shah MD [address] [place] [address] Specialist Cardiovascular Disease 09/01/20 Pallavi Flood NP [address] [place] [address] Cardiology 09/01/20 documented as of this encounter
--- OUTSIDE RECORDS SUMMARY | 2024-08-08 15:53 | XMS_ITS | Encounter Summary ---
Author Organization [facility] Address [address] [place] [address] Care Team Providers Care Law Clerk Name Role Phone Caitlyn Bowie MD Primary Care Provider +1- [phone] Encounter Details Date Type Department Care Team (Late st Contact Info) Description 01/28/2018 Scanned Document [facility] Health Information Management [address] [place] [address] External, Provider Social History Tobacco Use Types [...] [facility] 240 [facility] [address] [place], [place] [phone] Ronald Mills MD 240 [facility] A1 [place] [address] documented as of this encounter Procedures [...] documented as of this encounter Care Teams Law Clerk Relationship Specialty Start Date End Date Caitlyn Bowie MD [facility] 1 [place] [address] PCP - General Internal Medicine 05/06/21 Henry Kelly MD Pulmonary Department 175 [facility], [address] [place] [address] Physician Pulmonary Disease 09/06/17 06/22/20 documented as of this encounter
--- OUTSIDE RECORDS SUMMARY | 2024-08-08 15:53 | XMS_ITS | Encounter Summary ---
Author Organization [facility] Address [address] [place] [address] Care Team Providers Care Mold Cooler Name Role Phone Caitlyn Bowie MD Primary Care Provider +1- [phone] Reason for Visit * Reason Onset Date Comments Triage 07/15/2024 Encounter Details Date Type Department Care Team (Late st Contact Info) Description 07/15/2024 Telephone [facility] [address] [address] Ronald Mills MD [address] [place] [address] Triage Social History Tobacco Use Types [...] coumadin (managed locally as she lives in [place]). I asked if she contacted her coumadin [...] [facility] 240 [facility] [address] [place], [place] [address] Ronald Mills MD 240 [facility] Max [address] [place] [address] documented as of this encounter Visit Diagnoses Not on filedocumented in this encounter Additional Health Concerns Assessment Noted Time PHQ-9 Depression Total Score: 2 11/07/19 19 2:06 PM EDT documented as of this encounter Care Teams Mold Cooler Relationship Specialty Start Date End Date Caitlyn Bowie MD [address] [address] PCP - General Internal Medicine 05/06/21 documented as of this encounter
--- OUTSIDE RECORDS SUMMARY | 2024-08-08 15:53 | XMS_ITS | Encounter Summary ---
Author Organization [facility] Address [address] [place] [address] Care Team Providers Care Soda Fountain Operator Name Role Phone Caitlyn Bowie MD Primary Care Provider +1- [phone] Encounter Details Date Type Department Care Team (Late st Contact Info) Description 11/07/2014 Scanned Document [facility] Health Information Management [address] [place] [address] External, Provider Social History Tobacco Use Types [...] [facility] 240 [facility] Building [address] [place], [place] [phone] Ronald Mills MD 240 [facility] A1 [place] [address] documented as of this encounter Visit Diagnoses Not on filedocumented in this encounter Additional Health Concerns Infection Onset Date Last Indicated Resolved Time COVID-19 03/05/2022 03/05/2022 03/15/2022 7:18 PM EDT documented as of this encounter Care Teams Soda Fountain Operator Relationship Specialty Start Date End Date Caitlyn Bowie MD 3400 [facility] 1 [place] [address] PCP - General Internal Medicine 05/06/21 Henry Kelly MD Pulmonary Department 175 [facility], [address] [place] [address] Physician Pulmonary Disease 09/06/17 06/22/20 documented as of this encounter
--- OUTSIDE RECORDS SUMMARY | 2024-08-08 15:53 | XMS_ITS | Encounter Summary ---
Author Organization [facility] Address [address] [place] [address] Care Team Providers Care Supervisor Finish End Name Role Phone Sharon Vides Primary Care Provider Unava ilable Brennan Burnett MD Primary Care Provider Unavailab Hayden Montes MD Unavailable [phone] Pallavi Flood NP Unavailable [phone]- [phone] Caitlyn Bowie MD Primary Care Provider Unava ilable Reason for Visit * Reason Onset Date Comments TEST RESULTS 12/07/2018 XRAY OF LUNGS Encounter Details Date Type Department Care Team Description 12/07/2018 Telephone Pulmonology - [place] 175 [facility] [address] [place] [address] Andre Benites PA-C 299 [facility] [address] [place] [phone] TEST RESULTS (XRAY OF LUNGS) Social History [...] her know * Telephone Encounter - Clau Ibarra M.A. - 12/10/2018 3:[address] Adrian. Did you try calling the pt with x-ray results? * Telephone Encounter - Val Luciano - 12/07/2018 4:28 PM EDT Patient calling into the office showing a missed call from our number Please contact patient at number listed under contact information regarding results * Telephone Encounter - Kayla Dior - 12/07/2018 3:43 PM EDT Inform patient: [...] on filedocumented in this encounter Care Teams Supervisor Finish End Relationship Specialty Start Date End Date Sharon Vides PCP - General Internal Medicine 08/02/18 05/26/20 Brennan Burnett MD PCP - General Internal Medicine 05/27/20 12/07/21 Caitlyn Bowie MD [address] [place] [address] PCP - General Internal Medicine 12/08/21 Hayden Shah MD [address] [place] [address] Specialist Cardiovascular Disease 09/01/20 Pallavi Flood NP [address] [place] [address] Cardiology 09/01/20 documented as of this encounter
--- OUTSIDE RECORDS SUMMARY | 2024-08-08 15:53 | XMS_ITS | Encounter Summary ---
Author Organization [facility] Address [address] [place] [address] Care Team Providers Care Field Laboratory Operator Name Role Phone Sharon Vides Primary Care Provider Brennan Castro MD Primary Care Provider Unavailab Hayden Montes MD Unavailable Pallavi Flood NP Unavailable +1- [phone] Caitlyn Bowie MD Primary Care Provider Johnathon shaver Encounter Details Date Type Department Care Team Description 03/13/2019 Release of Information Medical Records [address] [place] [id number] Abstract, Provider Social History Tobacco Use Types [...] on filedocumented in this encounter Care Teams Field Laboratory Operator Relationship Specialty Start Date End Date Sharon Vides PCP - General Internal Medicine 08/02/18 05/26/20 Brennan Burnett MD PCP - General Internal Medicine 05/27/20 12/07/21 Caitlyn Bowie MD [address] [place] [address] PCP - General Internal Medicine 12/08/21 Hayden Shah MD [address] [place] [address] Specialist Cardiovascular Disease 09/01/20 Pallavi Flood NP [address] [place] [address] Cardiology 09/01/20 documented as of this encounter
--- OUTSIDE RECORDS SUMMARY | 2024-08-08 15:53 | XMS_ITS | Encounter Summary ---
Author Organization [facility] Address [address] [place] [address] Care Team Providers Care Operations Technician Name Role Phone Caitlyn Bowie MD Primary Care Provider +1- [phone] Encounter Details Date Type Department Care Team (Late st Contact Info) Description 01/26/2018 Scanned Document [facility] Health Information Management [address] [place] [address] External, Provider Social History Tobacco Use Types [...] at [facility] 240 [facility] [address] [place] [address] Ronald Mills MD 240 [facility] A1 [place] [address] documented as of this encounter [...] documented as of this encounter Care Teams Operations Technician Relationship Specialty Start Date End Date Caitlyn Bowie MD 3400 [facility] 1 [place] [address] PCP - General Internal Medicine 05/06/21 Henry Kelly MD Pulmonary Department [address] [place] [address], [address] [place] [address] Physician Pulmonary Disease 09/06/17 06/22/20 documented as of this encounter
--- OUTSIDE RECORDS SUMMARY | 2024-08-08 15:53 | XMS_ITS | Encounter Summary ---
Author Organization [facility] and [facility] Address [address] [place] [address] Care Team Providers Care Teacher Instrumental Name Role Phone Caitlyn Bowie MD Primary Care Provider +1- [phone] Encounter Details Date Type Department Care Team (Late st Contact Info) Description 03/13/2015 Scanned Document [facility] Health Information Management [address] [place] [address] External, Provider Social History Tobacco Use Types [...] [facility] 240 [facility] Building [address] [place], [place] [phone] Ronald Mills MD 240 [facility] Max [address] [place] [address] documented as of this encounter Procedures Procedure Name Priority Date/Time Associated Diagnosis Comments LAB SCAN Routine 02/16/2015 LAB SCAN Routine 02/16/2015 documented in this encounter Results * Lab Scan (02/16/2015) Blood specimen (specimen) us Provider External LAB BLOOD ORDERABLES Final Res ult Performing Organization Address [facility]/ZIP Co de Phone Number [facility] * Lab Scan (02/16/2015) Blood specimen (specimen) Provider External LAB BLOOD ORDERABLES Final Res ult Performing Organization Address [facility] Co de Phone Number [facility] documented in this encounter Visit Diagnoses Not on filedocumented in this encounter Additional Health Concerns Infection Onset Date Last Indicated Resolved Time COVID-19 03/05/2022 03/05/2022 03/15/2022 7:18 PM EDT documented as of this encounter Care Teams Teacher Instrumental Relationship Specialty Start Date End Date Caitlyn Bowie MD 3400 [facility] 1 [place] [address] PCP - General Internal Medicine 05/06/21 Henry Kelly MD Pulmonary Department 175 [facility], [address] [place] [address] Physician Pulmonary Disease 09/06/17 06/22/20 documented as of this encounter
--- OUTSIDE RECORDS SUMMARY | 2024-08-08 15:53 | XMS_ITS | Encounter Summary ---
Author Organization [facility] and [facility] Address [address] [place] [address] Care Team Providers Care District Traffic Chief Name Role Phone Caitlyn Bowie MD Primary Care Provider +1- [phone] Encounter Details Date Type Department Care Team (Late st Contact Info) Description 01/26/2018 Scanned Document [facility] Health Information Management [address] [place] [address] External, Provider Social History Tobacco Use Types [...] [facility] 240 [facility] Building [address] [place], [place] [phone] Ronald Mills MD 240 [facility] A1 [place] [address] documented as of this encounter [...] documented as of this encounter Care Teams District Traffic Chief Relationship Specialty Start Date End Date Caitlyn Bowie MD 3400 [facility] 1 [place] [address] PCP - General Internal Medicine 05/06/21 Henry Kelly MD Pulmonary Department 175 [facility], [address] [place] [address] Physician Pulmonary Disease 09/06/17 06/22/20 documented as of this encounter
--- OUTSIDE RECORDS SUMMARY | 2024-08-08 15:54 | XMS_ITS | Encounter Summary ---
Author Organization [facility] Address [address] [place] [address] Care Team Providers Care Complaints Coordinator Name Role Phone Caitlyn Bowie MD Primary Care Provider +1- [phone] Reason for Visit * Reason Comments Triage Encounter Details Date Type Department Care Team (Late st Contact Info) Description 10/18/2021 Telephone [facility] at [address] - [address] [phone] Ronald Mills MD [address] [place] [phone] Triage Social History Tobacco Use Types [...] Telemedicine [facility] at [facility] 240 [facility] Building [address] [place], [place] [address] Ronald Mills MD 240 [facility] [address] [place] [address] documented as of this encounter Visit Diagnoses Not on filedocumented in this encounter Additional Health Concerns Infection Onset Date Last Indicated Resolved Time COVID-19 03/05/2022 03/05/2022 03/15/2022 7:18 PM EDT Assessment Noted Time PHQ-9 Depression Total Score: 2 11/07/19 19 2:06 PM EDT documented as of this encounter Care Teams Complaints Coordinator Relationship Specialty Start Date End Date Caitlyn Bowie MD [address] [address] PCP - General Internal Medicine 05/06/21 documented as of this encounter
--- OUTSIDE RECORDS SUMMARY | 2024-08-08 15:54 | XMS_ITS | Encounter Summary ---
Author Organization [facility] and [facility] Address [address] [place] [address] Care Team Providers Care Reproductive Healthcare Assistant Name Role Phone Caitlyn Bowie MD Primary Care Provider +1- [phone] Encounter Details Date Type Department Care Team (Late st Contact Info) Description 12/28/2021 Scanned Document INTERFACE DEFAULT [address] [place] [address] System, Provider Not In Social History Tobacco [...] [facility] 240 [facility] Building [address] [place] [address] Ronald Mills MD [address] [place] [address] [address] [place] [address] documented as of this encounter Visit Diagnoses Not on filedocumented in this encounter Additional Health Concerns Infection Onset Date Last Indicated Resolved Time COVID-19 03/05/2022 03/05/2022 03/15/2022 7:18 PM EDT Assessment Noted Time PHQ-9 Depression Total Score: 2 11/07/19 19 2:06 PM EDT documented as of this encounter Care Teams Reproductive Healthcare Assistant Relationship Specialty Start Date End Date Caitlyn Bowie MD [address] [address] PCP - General Internal Medicine 05/06/21 documented as of this encounter
--- OUTSIDE RECORDS SUMMARY | 2024-08-08 15:54 | XMS_ITS | Encounter Summary ---
Author Organization [facility] Address 20 [place] [address] Care Team Providers Care Confidential Investigator Name Role Phone Caitlyn Bowie MD Primary Care Provider +1- [phone] Encounter Details Date Type Department Care Team (Late st Contact Info) Description 11/19/2021 Scanned Document Cardiovascular Medicine at [address] 2nd [place] [address] Norma Renee MD [address] [place] [phone] Social History Tobacco Use Types Packs/Day [...] 1:00 PM EDT Telemedicine Cancer Center at [address] [place] [address] Ronald Mills MD 240 [facility] A1 [place] [address] documented as of this encounter Visit Diagnoses Not on filedocumented in this encounter Additional Health Concerns Infection Onset Date Last Indicated Resolved Time COVID-19 03/05/2022 03/05/2022 03/15/2022 7:18 PM EDT Assessment Noted Time PHQ-9 Depression Total Score: 2 11/07/19 19 2:06 PM EDT documented as of this encounter Care Teams Confidential Investigator Relationship Specialty Start Date End Date Caitlyn Bowie MD [address] [address] PCP - General Internal Medicine 05/06/21 documented as of this encounter
--- OUTSIDE RECORDS SUMMARY | 2024-08-08 15:54 | XMS_ITS | Encounter Summary ---
Author Organization [facility] Address [address] [place] [address] Care Team Providers Care Snow Plow Tractor Operator Name Role Phone Caitlyn Bowie MD Primary Care Provider +1- [phone] Reason for Visit * Reason Comments Advice Only Encounter Details Date Type Department Care Team ([facility] st Contact Info) Description 06/01/2021 Telephone [facility] at [address] [phone] Ronald Mills MD [address] [place] [address] Advice Only Social History Tobacco Use [...] added that she's called before and sent [employer] messages but hasn't received a reply,[phone]. documented in this encounter Plan of Treatment Upcoming Encounters Date Type Department Care Team (Late st Contact Info) Description 10/31/2024 1:00 PM EDT Telemedicine Cancer Center at [facility] 240 [facility] Building [address] [place], [place] [phone] Ronald Mills MD 240 [facility] [address] [place] [phone] documented as of this encounter Visit Diagnoses Not on filedocumented in this encounter Additional Health Concerns Infection Onset Date Last Indicated Resolved Time COVID-19 03/05/2022 03/05/2022 03/15/2022 7:18 PM EDT Assessment Noted Time PHQ-9 Depression Total Score: 2 11/07/19 19 2:06 PM EDT documented as of this encounter Care Teams Snow Plow Tractor Operator Relationship Specialty Start Date End Date Caitlyn Bowie MD 3400 [facility] 1 [place] [address] PCP - General Internal Medicine 05/06/21 documented as of this encounter
--- OUTSIDE RECORDS SUMMARY | 2024-08-08 15:54 | XMS_ITS | Encounter Summary ---
Author Organization [facility] Address [address] [place] [address] Care Team Providers Care Aircraft Mechanic Electrical And Radio Name Role Phone Caitlyn Bowie MD Primary Care Provider +1- [phone] Encounter Details Date Type Department Care Team (Late st Contact Info) Description 04/18/2018 Scanned Document [facility] Health Information Management [address] [place] [address] External, Provider Social History Tobacco Use Types [...] at [facility] 240 [facility] Building [address] [place], [place] [phone] Ronald Mills MD 240 [facility] A1 [place] [address] documented as of this encounter [...] documented as of this encounter Care Teams Aircraft Mechanic Electrical And Radio Relationship Specialty Start Date End Date Caitlyn Bowie MD [address] [facility] 1 [place] [address] PCP - General Internal Medicine 05/06/21 Henry Kelly MD Pulmonary Department 175 [facility], [address] [place] [address] Physician Pulmonary Disease 09/06/17 06/22/20 documented as of this encounter
--- OUTSIDE RECORDS SUMMARY | 2024-08-08 15:54 | XMS_ITS | Encounter Summary ---
Author Organization [facility] Address [address] [place] [address] Care Team Providers Care Medical Record Clerk Name Role Phone Caitlyn Bowie MD Primary Care Provider +1- [phone] Encounter Details Date Type Department Care Team (Late st Contact Info) Description 07/26/2018 Scanned Document [facility] Health Information Management [address] [place] [phone] External, Provider Social History Tobacco Use Types [...] [facility] Center at [facility] 240 [facility] Building [address] [place], [place] [phone] Ronald Mills MD 240 [facility] A1 [place] [address] documented as of this encounter [...] as of this encounter Care Teams Medical Record Clerk Relationship Specialty Start Date End Date Caitlyn Bowie MD 3400 [facility] 1 [place] [address] PCP - General Internal Medicine 05/06/21 Henry Kelly MD Pulmonary Department 175 [facility], [address] [place] [address] Physician Pulmonary Disease 09/06/17 06/22/20 documented as of this encounter
--- OUTSIDE RECORDS SUMMARY | 2024-08-08 15:54 | XMS_ITS | Encounter Summary ---
Author Organization [facility] and [facility] Address [address] [place] [address] Care Team Providers Care Top Precipitator Operator Name Role Phone Caitlyn Bowie MD Primary Care Provider +1- [phone] Reason for Visit * Reason Comments FYI Encounter Details Date Type Department Care Team (Late st Contact Info) Description 05/24/2021 Telephone [facility] at [facility] at [address] [place] [address] 2nd [place], [place] [phone] Solo Henry MD [address] [place] [phone] FYI Social History Tobacco Use Types [...] Cancer Center at [facility] 240 [facility] Building [address] [place] [address] Ronald Mills MD 240 [facility] Max [address] [place] [address] documented as of this encounter Visit Diagnoses Not on filedocumented in this encounter Additional Health Concerns Infection Onset Date Last Indicated Resolved Time COVID-19 03/05/2022 03/05/2022 03/15/2022 7:18 PM EDT Assessment Noted Time PHQ-9 Depression Total Score: 2 11/07/19 19 2:06 PM EDT documented as of this encounter Care Teams Top Precipitator Operator Relationship Specialty Start Date End Date Caitlyn Bowie MD 3400 [facility] 1 [place] [address] PCP - General Internal Medicine 05/06/21 documented as of this encounter
--- OUTSIDE RECORDS SUMMARY | 2024-08-08 15:54 | XMS_ITS | Encounter Summary ---
Author Organization [facility] and [facility] Address [address] [place] [address] Care Team Providers Care Premium Representative Name Role Phone Caitlyn Bowie MD Primary Care Provider +1- [phone] Encounter Details Date Type Department Care Team (Late st Contact Info) Description 04/25/2021 Scanned Document INTERFACE DEFAULT [address] [place] [address] System, Provider Not In Social History Tobacco [...] [facility] 240 [facility] Building [address] [place], [place] [address] Ronald Mills MD [address] [place] [address] [address] [place] [address] documented as of this encounter [...] documented as of this encounter Care Teams Premium Representative Relationship Specialty Start Date End Date Caitlyn Bowie MD [address] [address] PCP - General Internal Medicine 05/06/21 documented as of this encounter
--- OUTSIDE RECORDS SUMMARY | 2024-08-08 15:54 | XMS_ITS | Encounter Summary ---
Author Organization [facility] and [facility] Address [address] [place] [address] Care Team Providers Care Tower Equipment Installer Name Role Phone Caitlyn Bowie MD Primary Care Provider +1- [phone] Encounter Details Date Type Department Care Team (Late st Contact Info) Description 08/07/2018 Scanned Document [facility] Health Information Management [address] [place] [phone] External, Provider Social History Tobacco Use Types [...] [facility] 240 [facility] Building [address] [place], [place] [phone] Ronald Mills MD 240 [facility] A1 [place] [address] documented as of this encounter Visit Diagnoses Not on filedocumented in this encounter Additional Health Concerns Infection Onset Date Last Indicated Resolved Time COVID-19 03/05/2022 03/05/2022 03/15/2022 7:18 PM EDT documented as of this encounter Care Teams Tower Equipment Installer Relationship Specialty Start Date End Date Caitlyn Bowie MD 3400 [facility] 1 [place] [address] PCP - General Internal Medicine 05/06/21 Henry Kelly MD Pulmonary Department 175 [facility], [address] [place] [address] Physician Pulmonary Disease 09/06/17 06/22/20 documented as of this encounter
--- OUTSIDE RECORDS SUMMARY | 2024-08-08 15:54 | XMS_ITS | Encounter Summary ---
Author Organization [facility] and [facility] Address [address] [place] [address] Care Team Providers Care Assistant Casino Shift Manager Name Role Phone Caitlyn Bowie MD Primary Care Provider +1- [phone] Encounter Details Date Type Department Care Team (Late st Contact Info) Description 04/28/2021 Scanned Document INTERFACE DEFAULT [address] [place] [address] System, Provider Not In Social History Tobacco [...] at [facility] 240 [facility] Building [address] [place], [place] [phone] Ronald Mills MD [address] [place] [address] [address] [place] [address] documented as of this encounter Procedures Procedure Name Priority Date/Time Associated Diagnosis Comments CARDIAC CATHETERIZATION 04/28/20 12:00 AM EDT documented in this encounter Results * CARDIAC CATHETERIZATION (04/28/2021 12:00 AM EDT) Anatomical Region Laterality Modality Chest Other 04/28/2021 us Provider Not In System CV CARDIAC CATH ORDERABLE S Edited Result - Final documented in this encounter Visit Diagnoses Not on filedocumented in this encounter Additional Health Concerns Infection Onset Date Last Indicated Resolved Time COVID-19 03/05/2022 03/05/2022 03/15/2022 7:18 PM EDT Assessment Noted Time PHQ-9 Depression Total Score: 2 11/07/19 19 2:06 PM EDT documented as of this encounter Care Teams Assistant Casino Shift Manager Relationship Specialty Start Date End Date Caitlyn Bowie MD [address] [address] PCP - General Internal Medicine 05/06/21 documented as of this encounter
--- OUTSIDE RECORDS SUMMARY | 2024-08-08 15:54 | XMS_ITS | Encounter Summary ---
Author Organization [facility] Address [address] [place] [address] Care Team Providers Care Academy Director Name Role Phone Caitlyn Bowie MD Primary Care Provider +1- [phone] Encounter Details Date Type Department Care Team (Late st Contact Info) Description 09/09/2021 Scanned Document INTERFACE DEFAULT [address] [place] [address] System, Provider Not In Social History Tobacco [...] – [facility] 240 [facility] Building [address] [place] [address] Ronald Mills MD [address] [place] [address] [address] [place] [address] documented as of this encounter Visit Diagnoses Not on filedocumented in this encounter Additional Health Concerns Infection Onset Date Last Indicated Resolved Time COVID-19 03/05/2022 03/05/2022 03/15/2022 7:18 PM EDT Assessment Noted Time PHQ-9 Depression Total Score: 2 11/07/19 19 2:06 PM EDT documented as of this encounter Care Teams Academy Director Relationship Specialty Start Date End Date Caitlyn Bowie MD [address] [address] PCP - General Internal Medicine 05/06/21 documented as of this encounter
--- OUTSIDE RECORDS SUMMARY | 2024-08-08 15:54 | XMS_ITS | Encounter Summary ---
Author Organization [facility] and [facility] Address [address] [place] [address] Care Team Providers Care Drying Machine Operator Package Yarns Name Role Phone Caitlyn Bowie MD Primary Care Provider +1- [phone] Encounter Details Date Type Department Care Team (Late st Contact Info) Description 06/07/2021 Scanned Document Onco-Oncology Program at [address] [place] [address] Norma Renee MD [address] [place] [address] 2 [place] [address] Social History Tobacco Use Types [...] 1:00 PM EDT Telemedicine Cancer Center at [address] [place], [place] [phone] Ronald Mills MD 240 [facility] A1 [place] [address] documented as of this encounter Visit Diagnoses Not on filedocumented in this encounter Additional Health Concerns Infection Onset Date Last Indicated Resolved Time COVID-19 03/05/2022 03/05/2022 03/15/2022 7:18 PM EDT Assessment Noted Time PHQ-9 Depression Total Score: 2 11/07/19 19 2:06 PM EDT documented as of this encounter Care Teams Drying Machine Operator Package Yarns Relationship Specialty Start Date End Date Caitlyn Bowie MD [address] [address] PCP - General Internal Medicine 05/06/21 documented as of this encounter
--- OUTSIDE RECORDS SUMMARY | 2024-08-08 15:54 | XMS_ITS | Encounter Summary ---
Author Organization [facility] Address [address] [place] [address] Care Team Providers Care Painter Barrel Name Role Phone Caitlyn Bowie MD Primary Care Provider +1- [phone] Encounter Details Date Type Department Care Team (Late st Contact Info) Description 12/04/2014 Scanned Document COUNTS INCLUDE 234 BEDS AT [facility] Health Information Management [address] [place] [address] External, Provider Social History Tobacco Use Types [...] [facility] 240 [facility] Building [address] [place], [place] [phone] Ronald Mills MD 240 [facility] Max [address] [place] [address] documented as of this encounter Procedures Procedure Name Priority Date/Time Associated Diagnosis Comments LAB SCAN Routine 12/04/2014 documented in this encounter Results * Lab Scan (12/04/2014) Blood specimen (specimen) us Provider External LAB BLOOD ORDERABLES Final Res ult [facility] documented in this encounter Visit Diagnoses Not on filedocumented in this encounter Additional Health Concerns Infection Onset Date Last Indicated Resolved Time COVID-19 03/05/2022 03/05/2022 03/15/2022 7:18 PM EDT documented as of this encounter Care Teams Painter Barrel Relationship Specialty Start Date End Date Caitlyn Bowie MD 3400 [facility] 1 [place] [address] PCP - General Internal Medicine 05/06/21 Henry Kelly MD Pulmonary Department 175 [facility], [address] [place] [address] Physician Pulmonary Disease 09/06/17 06/22/20 documented as of this encounter
--- OUTSIDE RECORDS SUMMARY | 2024-08-08 15:54 | XMS_ITS | Encounter Summary ---
Author Organization [facility] and [facility] Address [address] [place] [address] Care Team Providers Care Industrial Engineer Name Role Phone Caitlyn Bowie MD Primary Care Provider +1- [phone] Encounter Details Date Type Department Care Team (Late st Contact Info) Description 10/29/2021 Scanned Document [facility] Health Information Management [address] [place] [address] External, Provider Social History Tobacco Use Types [...] at [facility] 240 [facility] Building [address] [place], [place] [phone] Ronald Mills MD [address] [place] [address] [address]1 [place] [address] documented as of this encounter [...] as of this encounter Care Teams Industrial Engineer Relationship Specialty Start Date End Date Caitlyn Bowie MD [address] [address] PCP - General Internal Medicine 05/06/21 documented as of this encounter
--- OUTSIDE RECORDS SUMMARY | 2024-08-08 15:54 | XMS_ITS | Encounter Summary ---
Author Organization [facility] and [facility] Address [address] [place] [address] Care Team Providers Care Hat Lacer Name Role Phone Caitlyn Bowie MD Primary Care Provider +1- [phone] Encounter Details Date Type Department Care Team (Late st Contact Info) Description 05/05/2021 Scanned Document INTERFACE DEFAULT [address] [place] [address] System, Provider Not In Social History Tobacco [...] at [facility] 240 [facility] Building [address] [place] [address] Ronald Mills MD [address] [place] [address] [address]1 [place] [address] documented as of this encounter Visit Diagnoses Not on filedocumented in this encounter Additional Health Concerns Infection Onset Date Last Indicated Resolved Time COVID-19 03/05/2022 03/05/2022 03/15/2022 7:18 PM EDT Assessment Noted Time PHQ-9 Depression Total Score: 2 11/07/19 19 2:06 PM EDT documented as of this encounter Care Teams Hat Lacer Relationship Specialty Start Date End Date Caitlyn Bowie MD [address] [address] PCP - General Internal Medicine 05/06/21 documented as of this encounter
--- OUTSIDE RECORDS SUMMARY | 2024-08-08 15:54 | XMS_ITS | Clinical Summary ---
Author Organization [facility] Address [address] [place] [address] Care Team Providers Care Conference Center Manager Name Role Phone Caitlyn Bowie MD Primary Care Provider +1- [phone] Allergies Active Allergy Reactions Criticality Noted Date [...] Breath High 05/09/2008 Bronchospasm or Wheezing Ipratropium [place] Unknown/Patient and Family Unable to Define Medium [...] 1 capsule by mouth daily. Active B Vpgzkgm-O-Ohjmj Acid (STRESS 500 B-COMPLEX PO) Take 1 [...] age to complete this topic Care Teams Conference Center Manager Relationship Specialty Start Date End Date Catilyn Bowie MD [facility]0 [place] [address] PCP - General Internal Medicine 03/20/23
--- OUTSIDE RECORDS SUMMARY | 2024-08-08 15:54 | XMS_ITS | Encounter Summary ---
Author Organization [facility] and [facility] Address [address] [place] [address] Care Team Providers Care Dolphin Trainer Name Role Phone Caitlyn Bowie MD Primary Care Provider +1- [phone] Encounter Details Date Type Department Care Team (Late st Contact Info) Description 09/07/2021 Scanned Document INTERFACE DEFAULT [address] [place] [address] System, Provider Not In Social History Tobacco [...] [facility] at [facility] 240 [facility] Building [address] [place], [place] [address] Ronald Mills MD [address] [place] [address] [address] [place] [address] documented as of this encounter Procedures [...] documented as of this encounter Care Teams Dolphin Trainer Relationship Specialty Start Date End Date Caitlyn Bowie MD [address] [address] PCP - General Internal Medicine 05/06/21 documented as of this encounter
--- OUTSIDE RECORDS SUMMARY | 2024-08-08 15:54 | XMS_ITS | Encounter Summary ---
Author Organization [facility] Address [address] [place] [address] Care Team Providers Care Retail Banking Manager Name Role Phone Caitlyn Bowie MD Primary Care Provider +1- [phone] Encounter Details Date Type Department Care Team (Late st Contact Info) Description 06/07/2021 Scanned Document Cancer Center at [address] [address] External, Provider Social History Tobacco Use Types [...] – [facility] 240 [facility] Building [address] [place], [place] [phone] Ronald Mills MD [address] [place] [address] [address] [place] [address] documented as of this encounter Visit Diagnoses Not on filedocumented in this encounter Additional Health Concerns Infection Onset Date Last Indicated Resolved Time COVID-19 03/05/2022 03/05/2022 03/15/2022 7:18 PM EDT Assessment Noted Time PHQ-9 Depression Total Score: 2 11/07/19 19 2:06 PM EDT documented as of this encounter Care Teams Retail Banking Manager Relationship Specialty Start Date End Date Caitlyn Bowie MD [address] [address] PCP - General Internal Medicine 05/06/21 documented as of this encounter
--- OUTSIDE RECORDS SUMMARY | 2024-08-08 15:54 | XMS_ITS | Encounter Summary ---
Author Organization [facility] and [facility] Address 20 [place] [address] Care Team Providers Care Roofer Vinyl Coating Name Role Phone Caitlyn Bowie MD Primary Care Provider +1- [phone] Encounter Details Date Type Department Care Team (Late st Contact Info) Description 04/03/2018 Scanned Document [facility] [address] [place] [address] Provider, historical . Social History Tobacco Use [...] Cancer Center at [facility] 240 [facility] Building [address] [place], [place] [phone] Ronald Mills MD 240 [facility] Max [address] [place] [address] documented as of this encounter [...] documented as of this encounter Care Teams Roofer Vinyl Coating Relationship Specialty Start Date End Date Caitlyn Bowie MD 3400 [facility] 1 [place] [address] PCP - General Internal Medicine 05/06/21 Henry Kelly MD Pulmonary Department 175 [facility], [address] [place] [address] Physician Pulmonary Disease 09/06/17 06/22/20 documented as of this encounter
--- OUTSIDE RECORDS SUMMARY | 2024-08-08 15:54 | XMS_ITS | Encounter Summary ---
Author Organization [facility] Address [address] [place] [address] Care Team Providers Care Cathead Worker Name Role Phone Caitlyn Bowie MD Primary Care Provider +1- [phone] Encounter Details Date Type Department Care Team (Late st Contact Info) Description 04/16/2018 Scanned Document [facility] Health Information Management [address] [place] [address] External, Provider Social History Tobacco Use Types [...] [facility] 240 [facility] [address] [place], [place] [id number] Ronald Mills MD 240 [facility] [address]1 [place] [address] documented as of this encounter Visit Diagnoses Not on filedocumented in this encounter Additional Health Concerns Infection Onset Date Last Indicated Resolved Time COVID-19 03/05/2022 03/05/2022 03/15/2022 7:18 PM EDT documented as of this encounter Care Teams Cathead Worker Relationship Specialty Start Date End Date Caitlyn Bowie MD 3400 [facility] 1 [place] [address] PCP - General Internal Medicine 05/06/21 Henry Kelly MD Pulmonary Department 175 [facility], [address] [place] [address] Physician Pulmonary Disease 09/06/17 06/22/20 documented as of this encounter
--- OUTSIDE RECORDS SUMMARY | 2024-08-08 15:54 | XMS_ITS | Encounter Summary ---
Author Organization [facility] Address [address] [place] [address] Care Team Providers Care Ticket Counter Name Role Phone Caitlyn Bowie MD Primary Care Provider +1- [phone] Encounter Details Date Type Department Care Team (Late st Contact Info) Description 10/08/2021 Scanned Document INTERFACE DEFAULT [address] [place] [address] System, Provider Not In Social History Tobacco [...] [facility] 240 [facility] [address] [place], [place] [address] Ronald Mills MD [address] [place] [address] [address] [place] [address] documented as of this encounter [...] documented as of this encounter Care Teams Ticket Counter Relationship Specialty Start Date End Date Caitlyn Bowie MD [address] [address] PCP - General Internal Medicine 05/06/21 documented as of this encounter
--- OUTSIDE RECORDS SUMMARY | 2024-08-08 15:54 | XMS_ITS | Encounter Summary ---
Author Organization [facility] and [facility] Address [address] [place] [address] Care Team Providers Care Electric Brain Wave Equipment Mechanic Name Role Phone Caitlyn Bowie MD Primary Care Provider +1- [phone] Encounter Details Date Type Department Care Team (Late st Contact Info) Description 04/26/2021 Scanned Document INTERFACE DEFAULT [address] [place] [address] System, Provider Not In Social History Tobacco [...] at [facility] 240 [facility] [address] [place] [address] Ronald Mills MD [address] [place] [address] [address] [place] [address] documented as of this encounter [...] documented as of this encounter Care Teams Electric Brain Wave Equipment Mechanic Relationship Specialty Start Date End Date Caitlyn Bowie MD [address] [address] PCP - General Internal Medicine 05/06/21 documented as of this encounter
--- OUTSIDE RECORDS SUMMARY | 2024-08-08 15:54 | XMS_ITS | Encounter Summary ---
Author Organization [facility] Address [address] [place] [address] Care Team Providers Care Traffic Analysis Technician Name Role Phone Caitlyn Bowie MD Primary Care Provider +1- [phone] Encounter Details Date Type Department Care Team (Late st Contact Info) Description 03/14/2018 Scanned Document [facility] Health Information Management [address] [place] [address] External, Provider Social History Tobacco Use Types [...] [facility] 240 [facility] Building [address] [place], [place] [address] Ronald Mills MD [address] [place] [address] [address] [place] [address] documented as of this encounter [...] documented as of this encounter Care Teams Traffic Analysis Technician Relationship Specialty Start Date End Date Caitlyn Bowie MD 3400 [facility] 1 [place] [address] PCP - General Internal Medicine 05/06/21 Henry Kelly MD Pulmonary Department 175 [facility], [address] [place] [address] Physician Pulmonary Disease 09/06/17 06/22/20 documented as of this encounter
--- OUTSIDE RECORDS SUMMARY | 2024-08-08 15:54 | XMS_ITS | Encounter Summary ---
Author Organization [facility] Address [address] [place] [address] Care Team Providers Care Nougat Cutter Machine Name Role Phone Caitlyn Bowie MD Primary Care Provider +1- [phone] Encounter Details Date Type Department Care Team (Late st Contact Info) Description 11/18/2021 Scanned Document INTERFACE DEFAULT [address] [place] [address] System, Provider Not In Social History Tobacco [...] [facility] 240 [facility] Building [address] [place] [address] Ronald Mills MD [address] [place] [address] [address] [place] [address] documented as of this encounter Visit Diagnoses Not on filedocumented in this encounter Additional Health Concerns Infection Onset Date Last Indicated Resolved Time COVID-19 03/05/2022 03/05/2022 03/15/2022 7:18 PM EDT Assessment Noted Time PHQ-9 Depression Total Score: 2 11/07/19 19 2:06 PM EDT documented as of this encounter Care Teams Nougat Cutter Machine Relationship Specialty Start Date End Date Caitlyn Bowie MD [address] [address] PCP - General Internal Medicine 05/06/21 documented as of this encounter
--- OUTSIDE RECORDS SUMMARY | 2024-08-08 15:54 | XMS_ITS | Encounter Summary ---
Author Organization [facility] Address [address] [place] [address] Care Team Providers Care Gear Shaper Set Up Operator Name Role Phone Caitlyn Bowie MD Primary Care Provider +1- [phone] Encounter Details Date Type Department Care Team (Late st Contact Info) Description 09/24/2021 Scanned Document INTERFACE DEFAULT [address] [place] [address] System, Provider Not In Social History Tobacco [...] [facility] 240 [facility] Building [address] [place] [address] Ronald Mills MD [address] [place] [address] [address] [place] [address] documented as of this encounter [...] documented as of this encounter Care Teams Gear Shaper Set Up Operator Relationship Specialty Start Date End Date Caitlyn Bowie MD [facility] [address] [address] PCP - General Internal Medicine 05/06/21 documented as of this encounter
--- OUTSIDE RECORDS SUMMARY | 2024-08-08 15:54 | XMS_ITS | Encounter Summary ---
Author Organization [facility] Address [address] [place] [address] Care Team Providers Care Telemarketing Manager Name Role Phone Caitlyn Bowie MD Primary Care Provider +1- [phone] Encounter Details Date Type Department Care Team (Late st Contact Info) Description 07/28/2018 Scanned Document [facility] Health Information Management [address] [place] [address] External, Provider Social History Tobacco Use Types [...] at [facility] 240 [facility] Building [address] [place], [place] [address] Ronald Mills MD [address] [facility] A1 [place] [address] documented as of this encounter [...] documented as of this encounter Care Teams Telemarketing Manager Relationship Specialty Start Date End Date Caitlyn Bowie MD [facility]0 [facility] 1 [place] [address] PCP - General Internal Medicine 05/06/21 Henry Kelly MD Pulmonary Department 175 [facility], [address] [place] [address] Physician Pulmonary Disease 09/06/17 06/22/20 documented as of this encounter
--- OUTSIDE RECORDS SUMMARY | 2024-08-08 15:54 | XMS_ITS | Encounter Summary ---
Author Organization [facility] Address [address] [place] [address] Care Team Providers Care Aircraft Fuselage Framer Name Role Phone Caitlyn Bowie MD Primary Care Provider +1- [phone] Encounter Details Date Type Department Care Team (Late st Contact Info) Description 09/23/2021 Scanned Document INTERFACE DEFAULT [address] [place] [address] System, Provider Not In Social History Tobacco [...] [facility] 240 [facility] Building [address] [place], [place] [address] Ronald Mills MD [address] [place] [address] [address] [place] [address] documented as of this encounter [...] as of this encounter Care Teams Aircraft Fuselage Framer Relationship Specialty Start Date End Date Caitlyn Bowie MD [address] [address] PCP - General Internal Medicine 05/06/21 documented as of this encounter
--- OUTSIDE RECORDS SUMMARY | 2024-08-08 15:54 | XMS_ITS | Encounter Summary ---
Author Organization [facility] Address [address] [place] [address] Care Team Providers Care Restrictive Preparation Operator Name Role Phone Caitlyn Bowie MD Primary Care Provider +1- [phone] Encounter Details Date Type Department Care Team (Late st Contact Info) Description 06/08/2021 Scanned Document INTERFACE DEFAULT [address] [place] [address] System, Provider Not In Social History Tobacco [...] at [facility] 240 [facility] Building [address] [place], [place] [address] Ronald Mills MD [address] [place] [address] [address] [place] [address] documented as of this encounter [...] documented as of this encounter Care Teams Restrictive Preparation Operator Relationship Specialty Start Date End Date Caitlyn Bowie MD [address] [place] [address] PCP - General Internal Medicine 05/06/21 documented as of this encounter
--- OUTSIDE RECORDS SUMMARY | 2024-08-08 15:54 | XMS_ITS | Encounter Summary ---
Author Organization [facility] and [facility] Address [address] [place] [address] Care Team Providers Care Deputy City Clerk Name Role Phone Caitlyn Bowie MD Primary Care Provider +1- [phone] Encounter Details Date Type Department Care Team (Late st Contact Info) Description 04/29/2021 Scanned Document INTERFACE DEFAULT [address] [place] [address] System, Provider Not In Social History Tobacco [...] [facility] 240 [facility] [address] [place] [address] Ronald Mills MD [address] [place] [address] [address] [place] [address] documented as of this encounter [...] documented as of this encounter Care Teams Deputy City Clerk Relationship Specialty Start Date End Date Caitlyn Bowie MD [address] [address] PCP - General Internal Medicine 05/06/21 documented as of this encounter
--- OUTSIDE RECORDS SUMMARY | 2024-08-08 15:54 | XMS_ITS | Encounter Summary ---
Author Organization [facility] Address [address] [place] [address] Care Team Providers Care Solution Coordinator Name Role Phone Caitlyn Bowie MD Primary Care Provider +1- [phone] Encounter Details Date Type Department Care Team (Late st Contact Info) Description 04/24/2021 Scanned Document INTERFACE DEFAULT [address] [place] [address] System, Provider Not In Social History Tobacco [...] [facility] 240 [facility] Building [address] [place], [place] [address] Ronald Mills MD [address] [place] [address] [address] [place] [address] documented as of this [...] documented as of this encounter Care Teams Solution Coordinator Relationship Specialty Start Date End Date Caitlyn Bowie MD [address] [address] PCP - General Internal Medicine 05/06/21 documented as of this encounter
--- OUTSIDE RECORDS SUMMARY | 2024-08-08 15:54 | XMS_ITS | Encounter Summary ---
Author Organization [facility] Address [address] [place] [address] Care Team Providers Care Go Cart Mechanic Name Role Phone Caitlyn Bowie MD Primary Care Provider +1- [phone] Reason for Visit * Reason Comments Advice Only mass Encounter Details Date Type Department Care Team (Late st Contact Info) Description 09/06/2021 Telephone [facility] at [address] [address] Ronald Mills MD [address] [place] [address] Advice Only (mass) Social History Tobacco [...] [facility] 240 [facility] Building [address] [place], [place] [address] Ronald Mills MD 240 [facility] Max [address] [place] [address] documented as of this encounter Visit Diagnoses Not on filedocumented in this encounter Additional Health Concerns Infection Onset Date Last Indicated Resolved Time COVID-19 03/05/2022 03/05/2022 03/15/2022 7:18 PM EDT Assessment Noted Time PHQ-9 Depression Total Score: 2 11/07/19 19 2:06 PM EDT documented as of this encounter Care Teams Go Cart Mechanic Relationship Specialty Start Date End Date Caitlyn Bowie MD [address] [address] PCP - General Internal Medicine 05/06/21 documented as of this encounter
--- OUTSIDE RECORDS SUMMARY | 2024-08-08 15:54 | XMS_ITS | Encounter Summary ---
Author Organization [facility] and [facility] Address [address] [place] [address] Care Team Providers Care Area Forester Name Role Phone Caitlyn Bowie MD Primary Care Provider +1- [phone] Encounter Details Date Type Department Care Team (Late st Contact Info) Description 05/17/2021 Scanned Document Cancer Center at [address] [address] External, Provider Social History Tobacco Use Types [...] [facility] 240 [facility] Building [address] [place], [place] [address] Ronald Mills MD [address] [place] [address] [address]1 [place] [address] documented as of this encounter [...] documented as of this encounter Care Teams Area Forester Relationship Specialty Start Date End Date Caitlyn Bowie MD [address] [address] PCP - General Internal Medicine 05/06/21 documented as of this encounter
--- OUTSIDE RECORDS SUMMARY | 2024-08-08 15:54 | XMS_ITS | Encounter Summary ---
Author Organization [facility] Address [address] [place] [address] Care Team Providers Care Edge Cutting Machine Operator Name Role Phone Caitlyn Bowie MD Primary Care Provider +1- [phone] Encounter Details Date Type Department Care Team (Late st Contact Info) Description 04/27/2021 Scanned Document INTERFACE DEFAULT [address] [place] [address] System, Provider Not In Social History Tobacco [...] [facility] 240 [facility] Building [address] [place] [address] Ronald Mills MD [address] [place] [address] [address] [place] [address] documented as of this encounter [...] documented as of this encounter Care Teams Edge Cutting Machine Operator Relationship Specialty Start Date End Date Caitlyn Bowie MD [address] [address] PCP - General Internal Medicine 05/06/21 documented as of this encounter
--- OUTSIDE RECORDS SUMMARY | 2024-08-08 15:54 | XMS_ITS | Encounter Summary ---
Author Organization [facility] Address [address] [place] [address] Care Team Providers Care Monument Stonecutter Name Role Phone Caitlyn Bowie MD Primary Care Provider +1- [phone] Encounter Details Date Type Department Care Team (Late st Contact Info) Description 09/10/2021 Scanned Document Cardiovascular Medicine at [address] [place] [address] Norma Renee MD [address] [place] [phone] Social History Tobacco Use Types Packs/Day Years [...] 1:00 PM EDT Telemedicine Cancer Center at [address] [place] [address] Ronald Mills MD [address] [place] [address] [address] [place] [address] documented as of this encounter Visit Diagnoses Not on filedocumented in this encounter Additional Health Concerns Infection Onset Date Last Indicated Resolved Time COVID-19 03/05/2022 03/05/2022 03/15/2022 7:18 PM EDT Assessment Noted Time PHQ-9 Depression Total Score: 2 11/07/19 19 2:06 PM EDT documented as of this encounter Care Teams Monument Stonecutter Relationship Specialty Start Date End Date Caitlyn Bowie MD [address] [address] PCP - General Internal Medicine 05/06/21 documented as of this encounter
--- OUTSIDE RECORDS SUMMARY | 2024-08-08 15:54 | XMS_ITS | Encounter Summary ---
Author Organization [facility] Address [address] [place] [address] Care Team Providers Care Person Investigator Name Role Phone Caitlyn Bowie MD Primary Care Provider +1- [phone] Encounter Details Date Type Department Care Team (Late st Contact Info) Description 05/27/2021 Telephone [facility] at [address] [address] Ronald Mills MD [address] [place] [address] Social History Tobacco Use Types Packs/Day [...] [facility] 240 [facility] [address] [place], [place] [address] Ronald Mills MD 240 [facility] Max [address] [place] [address] documented as of this encounter Visit Diagnoses Not on filedocumented in this encounter Additional Health Concerns Infection Onset Date Last Indicated Resolved Time COVID-19 03/05/2022 03/05/2022 03/15/2022 7:18 PM EDT Assessment Noted Time PHQ-9 Depression Total Score: 2 11/07/19 19 2:06 PM EDT documented as of this encounter Care Teams Person Investigator Relationship Specialty Start Date End Date Caitlyn Bowie MD [address] [address] PCP - General Internal Medicine 05/06/21 documented as of this encounter
--- OUTSIDE RECORDS SUMMARY | 2024-08-08 15:54 | XMS_ITS | Encounter Summary ---
Author Organization [facility] Address [address] [place] [address] Care Team Providers Care Director Advanced Name Role Phone Caitlyn Boiwe MD Primary Care Provider +1- [phone] Encounter Details Date Type Department Care Team (Late st Contact Info) Description 11/18/2021 Scanned Document [facility] Health Information Management [address] [place] [address] External, Provider Social History Tobacco Use Types [...] [facility] 240 [facility] Building [address] [place], [place] [address] Ronald Mills MD [address] [place] [address] [address]1 [place] [address] documented as of this encounter Visit Diagnoses Not on filedocumented in this encounter Additional Health Concerns Infection Onset Date Last Indicated Resolved Time COVID-19 03/05/2022 03/05/2022 03/15/2022 7:18 PM EDT Assessment Noted Time PHQ-9 Depression Total Score: 2 11/07/19 19 2:06 PM EDT documented as of this encounter Care Teams Director Advanced Relationship Specialty Start Date End Date Caitlyn Bowie MD [address] [address] PCP - General Internal Medicine 05/06/21 documented as of this encounter
--- OUTSIDE RECORDS SUMMARY | 2024-08-08 15:54 | XMS_ITS | Encounter Summary ---
Author Organization [facility] Address [address] [place] [address] Care Team Providers Care Inspection Clerk Name Role Phone Caitlyn Bowie MD Primary Care Provider +1- [phone] Encounter Details Date Type Department Care Team (Late st Contact Info) Description 07/30/2018 Scanned Document [facility] Health Information Management [address] [place] [address] External, Provider Social History Tobacco Use Types [...] [facility] 240 [facility] Building [address] [place], [place] [address] Ronald Mills MD 240 [facility] A1 [place] [address] documented as of this encounter [...] documented as of this encounter Care Teams Inspection Clerk Relationship Specialty Start Date End Date Caitlyn Bowie MD [facility] 1 [place] [address] PCP - General Internal Medicine 05/06/21 Henry Kelly MD Pulmonary Department 175 [facility], [address] [place] [address] Physician Pulmonary Disease 09/06/17 06/22/20 documented as of this encounter
--- OUTSIDE RECORDS SUMMARY | 2024-08-08 15:54 | XMS_ITS | Encounter Summary ---
Author Organization [facility] [place] Address [address] [place] [address] Care Team Providers Care Employee Health Rn Name Role Phone Caitlyn Bowie MD Primary Care Provider +1- [phone] Encounter Details Date Type Department Care Team (Late st Contact Info) Description 06/07/2021 Scanned Document [facility] Program at [address] [place] [address] Norma Renee MD [address] [place] [address] 2 [place] [address] Social History Tobacco Use Types [...] PM EDT Telemedicine Cancer Center at [address] [place] [address] Ronald Mills MD 240 [facility] [address] [place] [address] documented as of this encounter Visit Diagnoses Not on filedocumented in this encounter Additional Health Concerns Infection Onset Date Last Indicated Resolved Time COVID-19 03/05/2022 03/05/2022 03/15/2022 7:18 PM EDT Assessment Noted Time PHQ-9 Depression Total Score: 2 11/07/19 19 2:06 PM EDT documented as of this encounter Care Teams Employee Health Rn Relationship Specialty Start Date End Date Caitlyn Bowie MD [address] [address] PCP - General Internal Medicine 05/06/21 documented as of this encounter
--- OUTSIDE RECORDS SUMMARY | 2024-08-08 15:54 | XMS_ITS | Encounter Summary ---
Author Organization [facility] and [facility] Address [address] [place] [address] Care Team Providers Care Director Phone Name Role Phone Caitlyn Bowie MD Primary Care Provider +1- [phone] Encounter Details Date Type Department Care Team (Late st Contact Info) Description 10/15/2018 Scanned Document [facility] Health Information Management [address] [place] [address] External, Provider Social History Tobacco Use Types [...] [facility] 240 [facility] Building [address] [place], [place] [address] Ronald Mills MD 240 [facility] A1 [place] [address] documented as of this encounter Visit Diagnoses Not on filedocumented in this encounter Additional Health Concerns Infection Onset Date Last Indicated Resolved Time COVID-19 03/05/2022 03/05/2022 03/15/2022 7:18 PM EDT documented as of this encounter Care Teams Director Phone Relationship Specialty Start Date End Date Caitlyn Bowie MD [address]00 [facility] 1 [place] [address] PCP - General Internal Medicine 05/06/21 Henry Kelly MD Pulmonary Department 175 [facility], [address] [place] [address] Physician Pulmonary Disease 09/06/17 06/22/20 documented as of this encounter
--- OUTSIDE RECORDS SUMMARY | 2024-08-08 15:54 | XMS_ITS | Encounter Summary ---
Author Organization [facility] and [facility] Address [address] [place] [address] Care Team Providers Care Resin Filterer Name Role Phone Caitlyn Bowie MD Primary Care Provider +1- [phone] Encounter Details Date Type Department Care Team (Late st Contact Info) Description 06/26/2018 Scanned Document [facility] Health Information Management [address] [place] [address] External, Provider Social History Tobacco Use Types [...] [facility] at [facility] [address] [facility] [address] [place], [place] [id number] Ronald Mills MD 240 [facility] [address]1 [place] [address] documented as of this encounter Visit Diagnoses Not on filedocumented in this encounter Additional Health Concerns Infection Onset Date Last Indicated Resolved Time COVID-19 03/05/2022 03/05/2022 03/15/2022 7:18 PM EDT documented as of this encounter Care Teams Resin Filterer Relationship Specialty Start Date End Date Caitlyn Bowie MD [address] [facility] 1 [place] [address] PCP - General Internal Medicine 05/06/21 Henry Kelly MD Pulmonary Department 175 [facility], [address] [place] [address] Physician Pulmonary Disease 09/06/17 06/22/20 documented as of this encounter
--- OUTSIDE RECORDS SUMMARY | 2024-08-08 15:55 | XMS_ITS | Encounter Summary ---
Author Organization [facility] and [facility] Address [address] [place] [address] Care Team Providers Care Vice President Of Compliance Name Role Phone Caitlyn Bowie MD Primary Care Provider +1- [phone] Encounter Details Date Type Department Care Team (Late st Contact Info) Description 12/23/2022 Scanned Document INTERFACE DEFAULT [address] [place] [address] System, Provider Not In Social History Tobacco [...] Center at [facility] 240 [facility] [address] [place] [address] Ronald Mills MD [address] [place] [address] [address] [place] [address] documented as of this encounter Visit Diagnoses Not on filedocumented in this encounter Additional Health Concerns Assessment Noted Time PHQ-9 Depression Total Score: 2 11/07/19 19 2:06 PM EDT documented as of this encounter Care Teams Vice President Of Compliance Relationship Specialty Start Date End Date Caitlyn Bowie MD [address] [address] PCP - General Internal Medicine 05/06/21 documented as of this encounter
--- OUTSIDE RECORDS SUMMARY | 2024-08-08 15:55 | XMS_ITS | Encounter Summary ---
Author Organization [facility] and [facility] Address [address] [place] [address] Care Team Providers Care Grocery Store Clerk Name Role Phone Caitlyn Bowie MD Primary Care Provider +1- [phone] Encounter Details Date Type Department Care Team (Late st Contact Info) Description 09/01/2023 Scanned Document INTERFACE DEFAULT [address] [place] [address] System, Provider Not In Social History Tobacco [...] at [facility] 240 [facility] Building [address] [place] [address] Ronald Mills MD [address] [place] [address] [address] [place] [address] documented as of this encounter Visit Diagnoses Not on filedocumented in this encounter Additional Health Concerns Assessment Noted Time PHQ-9 Depression Total Score: 2 11/07/19 19 2:06 PM EDT documented as of this encounter Care Teams Grocery Store Clerk Relationship Specialty Start Date End Date Caitlyn Bowie MD [address] [address] PCP - General Internal Medicine 05/06/21 documented as of this encounter
--- OUTSIDE RECORDS SUMMARY | 2024-08-08 15:55 | XMS_ITS | Encounter Summary ---
Author Organization [facility] and [facility] Address [address] [place] [address] Care Team Providers Care Director Of Enterprise Strategy Name Role Phone Caitlyn Bowie MD Primary Care Provider +1- [phone] Encounter Details Date Type Department Care Team (Late st Contact Info) Description 06/08/2022 Scanned Document INTERFACE DEFAULT [address] [place] [address] System, Provider Not In Social History Tobacco [...] [facility] 240 [facility] Building [address] [place], [place] [phone] Ronald Mills MD [address] [place] [address] [address] [place] [address] documented as of this encounter Procedures Procedure Name Priority Date/Time Associated Diagnosis Comments LAB SCAN 06/08/2022 12:00 AM EST documented in this encounter Results * LAB SCAN (06/08/2022 12:00 AM EST) 06/08/2022 us Provider Not In System LAB BLOOD ORDERABLES Carimna l Result documented in this encounter Visit Diagnoses Not on filedocumented in this encounter Additional Health Concerns Assessment Noted Time PHQ-9 Depression Total Score: 2 11/07/19 19 2:06 PM EDT documented as of this encounter Care Teams Director Of Enterprise Strategy Relationship Specialty Start Date End Date Caitlyn Bowie MD [address] [address] PCP - General Internal Medicine 05/06/21 documented as of this encounter
--- OUTSIDE RECORDS SUMMARY | 2024-08-08 15:55 | XMS_ITS | Encounter Summary ---
Author Organization [facility] and [facility] Address [address] [place] [address] Care Team Providers Care Shrub Planter Name Role Phone Caitlyn Bowie MD Primary Care Provider +1- [phone] Encounter Details Date Type Department Care Team (Late st Contact Info) Description 06/24/2022 Scanned Document INTERFACE DEFAULT [address] [place] [address] System, Provider Not In Social History Tobacco [...] [facility] 240 [facility] Building [address] [place], [place] [phone] Ronald Mills MD [address] [place] [address] [address] [place] [address] documented as of this encounter [...] documented as of this encounter Care Teams Shrub Planter Relationship Specialty Start Date End Date Caitlyn Bowie MD [address] [address] PCP - General Internal Medicine 05/06/21 documented as of this encounter
--- OUTSIDE RECORDS SUMMARY | 2024-08-08 15:55 | XMS_ITS | Encounter Summary ---
Author Organization [facility] and [facility] Address [address] [place] [address] Care Team Providers Care Youth Court Judge Name Role Phone Caitlyn Bowie MD Primary Care Provider +1- [phone] Encounter Details Date Type Department Care Team (Late st Contact Info) Description 10/24/2022 Scanned Document INTERFACE DEFAULT [address] [place] [address] System, Provider Not In Social History Tobacco [...] [facility] at [facility] 240 [facility] Building [address] [place], [place] [address] Ronald Mills MD [address] [place] [address] [address] [place] [address] documented as of this encounter [...] documented as of this encounter Care Teams Youth Court Judge Relationship Specialty Start Date End Date Caitlyn Bowie MD [facility] [address] [address] PCP - General Internal Medicine 05/06/21 documented as of this encounter
--- OUTSIDE RECORDS SUMMARY | 2024-08-08 15:55 | XMS_ITS | Encounter Summary ---
Author Organization [facility] Address [address] [place] [address] Care Team Providers Care Piggery Worker Name Role Phone Caitlyn Bowie MD Primary Care Provider +1- [phone] Encounter Details Date Type Department Care Team (Late st Contact Info) Description 04/19/2023 Scanned Document INTERFACE DEFAULT [address] [place] [address] System, Provider Not In Social History Tobacco [...] [facility] 240 [facility] Building [address] [place], [place] [address] Ronald Mills MD [address] [place] [address] [address] [place] [address] documented as of this encounter [...] documented as of this encounter Care Teams Piggery Worker Relationship Specialty Start Date End Date Caitlyn Bowie MD [address] [address] PCP - General Internal Medicine 05/06/21 documented as of this encounter
--- OUTSIDE RECORDS SUMMARY | 2024-08-08 15:55 | XMS_ITS | Encounter Summary ---
Author Organization [facility] and [facility] Address [address] [place] [address] Care Team Providers Care Supply Analyst Name Role Phone Caitlny Bowie MD Primary Care Provider +1- [phone] Encounter Details Date Type Department Care Team (Late st Contact Info) Description 04/20/2023 Scanned Document INTERFACE DEFAULT [address] [place] [address] System, Provider Not In Social History Tobacco [...] at [facility] 240 [facility] Building [address] [place], [place] [address] Ronald Mills MD [address] [place] [address] [address] [place] [address] documented as of this encounter [...] as of this encounter Care Teams Supply Analyst Relationship Specialty Start Date End Date Caitlyn Bowie MD [address] [place] [address] [address] PCP - General Internal Medicine 05/06/21 documented as of this encounter
--- OUTSIDE RECORDS SUMMARY | 2024-08-08 15:55 | XMS_ITS | Encounter Summary ---
Author Organization [facility] and [facility] Address [address] [place] [address] Care Team Providers Care Crate Builder Name Role Phone Caitlyn Bowie MD Primary Care Provider +1- [phone] Encounter Details Date Type Department Care Team (Late st Contact Info) Description 05/17/2023 Scanned Document INTERFACE DEFAULT [address] [place] [address] System, Provider Not In Social History Tobacco [...] [facility] 240 [facility] Building [address] [place], [place] [address] Ronald Mills MD [address] [place] [address] [address] [place] [address] documented as of this encounter [...] documented as of this encounter Care Teams Crate Builder Relationship Specialty Start Date End Date Caitlyn Bowie MD [address] [address] PCP - General Internal Medicine 05/06/21 documented as of this encounter
--- OUTSIDE RECORDS SUMMARY | 2024-08-08 15:55 | XMS_ITS | Encounter Summary ---
Author Organization [facility] and [facility] Address [address] [place] [address] Care Team Providers Care Carpet Weaver Name Role Phone Caitlyn Bowie MD Primary Care Provider +1- [phone] Encounter Details Date Type Department Care Team (Late st Contact Info) Description 07/06/2021 Scanned Document INTERFACE DEFAULT [address] [place] [address] System, Provider Not In Social History Tobacco [...] [facility] 240 [facility] Building [address] [place] [address] Ronald Mills MD [address] [place] [address] [address]1 [place] [address] documented as of this encounter Visit Diagnoses Not on filedocumented in this encounter Additional Health Concerns Infection Onset Date Last Indicated Resolved Time COVID-19 03/05/2022 03/05/2022 03/15/2022 7:18 PM EDT Assessment Noted Time PHQ-9 Depression Total Score: 2 11/07/19 19 2:06 PM EDT documented as of this encounter Care Teams Carpet Weaver Relationship Specialty Start Date End Date Caitlyn Bowie MD [address] [address] PCP - General Internal Medicine 05/06/21 documented as of this encounter
--- OUTSIDE RECORDS SUMMARY | 2024-08-08 15:55 | XMS_ITS | Encounter Summary ---
Author Organization [facility] and [facility] Address [address] [place] [address] Care Team Providers Care Emergency Veterinarian Name Role Phone Caitlyn Bowie MD Primary Care Provider +1- [phone] Encounter Details Date Type Department Care Team (Late st Contact Info) Description 01/02/2024 Scanned Document INTERFACE DEFAULT [address] [place] [address] System, Provider Not In Social History Tobacco [...] at [facility] 240 [facility] Building [address] [place], [place] [address] Ronald Mills MD [address] [place] [address] [address] [place] [address] documented as of this encounter [...] documented as of this encounter Care Teams Emergency Veterinarian Relationship Specialty Start Date End Date Caitlyn Bowie MD [address] [address] PCP - General Internal Medicine 05/06/21 documented as of this encounter
--- OUTSIDE RECORDS SUMMARY | 2024-08-08 15:55 | XMS_ITS | Encounter Summary ---
Author Organization [facility] and [facility] Address [address] [place] [address] Care Team Providers Care Corporate Ethics Officer Name Role Phone Caitlyn Bowie MD Primary Care Provider +1- [phone] Encounter Details Date Type Department Care Team (Late st Contact Info) Description 09/02/2021 Scanned Document INTERFACE DEFAULT [address] [place] [address] System, Provider Not In Social History Tobacco [...] [facility] 240 [facility] Building [address] [place], [place] [address] Ronald Mills MD [address] [place] [address] [address] [place] [address] documented as of this encounter [...] documented as of this encounter Care Teams Corporate Ethics Officer Relationship Specialty Start Date End Date Caitlyn Bowie MD [address] [address] PCP - General Internal Medicine 05/06/21 documented as of this encounter
--- OUTSIDE RECORDS SUMMARY | 2024-08-08 15:55 | XMS_ITS | Encounter Summary ---
Author Organization [facility] and [facility] Address [address] [place] [address] Care Team Providers Care Ground Instructor Basic Name Role Phone Caitlyn Bowie MD Primary Care Provider +1- [phone] Encounter Details Date Type Department Care Team (Late st Contact Info) Description 07/28/2022 Scanned Document Onco-Oncology Program at [address] [place] [address] Norma Renee MD [address] [place] [address] 2 [place] [address] Social History Tobacco Use Types [...] 1:00 PM EDT Telemedicine Cancer Center at [address] [place], [place] [address] Ronald Mills MD 240 [facility] A[address] [place] [address] documented as of this encounter Visit Diagnoses Not on filedocumented in this encounter Additional Health Concerns Assessment Noted Time PHQ-9 Depression Total Score: 2 11/07/19 19 2:06 PM EDT documented as of this encounter Care Teams Ground Instructor Basic Relationship Specialty Start Date End Date Caitlyn Bowie MD [address] [address] PCP - General Internal Medicine 05/06/21 documented as of this encounter
--- OUTSIDE RECORDS SUMMARY | 2024-08-08 15:55 | XMS_ITS | Encounter Summary ---
Author Organization [facility] and [facility] Address [address] [place] [address] Care Team Providers Care Research Recruiter Name Role Phone Caitlyn Bowie MD Primary Care Provider +1- [phone] Encounter Details Date Type Department Care Team (Late st Contact Info) Description 06/23/2022 Scanned Document INTERFACE DEFAULT [address] [place] [address] System, Provider Not In Social History Tobacco [...] [facility] 240 [facility] Building [address] [place] [address] Ronald Mills MD [address] [place] [address] [address]1 [place] [address] documented as of this encounter Visit Diagnoses Not on filedocumented in this encounter Additional Health Concerns Assessment Noted Time PHQ-9 Depression Total Score: 2 11/07/19 19 2:06 PM EDT documented as of this encounter Care Teams Research Recruiter Relationship Specialty Start Date End Date Caitlyn Bowie MD [address] [address] PCP - General Internal Medicine 05/06/21 documented as of this encounter
--- OUTSIDE RECORDS SUMMARY | 2024-08-08 15:55 | XMS_ITS | Encounter Summary ---
Author Organization [facility] and [facility] Address [address] [place] [address] Care Team Providers Care Lead Shipper Name Role Phone Caitlyn Bowie MD Primary Care Provider +1- [phone] Encounter Details Date Type Department Care Team (Late st Contact Info) Description 04/13/2023 Scanned Document INTERFACE DEFAULT [address] [place] [address] System, Provider Not In Social History Tobacco [...] at [facility] 240 [facility] Building [address] [place] [address] Ronald Mills MD [address] [place] [address] [address] [place] [address] documented as of this encounter [...] documented as of this encounter Care Teams Lead Shipper Relationship Specialty Start Date End Date Caitlyn Bowie MD [address] [address] PCP - General Internal Medicine 05/06/21 documented as of this encounter
--- OUTSIDE RECORDS SUMMARY | 2024-08-08 15:55 | XMS_ITS | Encounter Summary ---
Author Organization [facility] and [facility] Address [address] [place] [address] Care Team Providers Care Automotive Painter Name Role Phone Caitlyn Bowie MD Primary Care Provider +1- [phone] Encounter Details Date Type Department Care Team (Late st Contact Info) Description 05/16/2023 Scanned Document INTERFACE DEFAULT [address] [place] [address] System, Provider Not In Social History Tobacco [...] Center at [facility] 240 [facility] Building [address] [place], [place] [address] Ronald Mills MD [address] [place] [address] [address] [place] [address] documented as of this encounter [...] documented as of this encounter Care Teams Automotive Painter Relationship Specialty Start Date End Date Caitlyn Bowie MD [address] [address] PCP - General Internal Medicine 05/06/21 documented as of this encounter
--- OUTSIDE RECORDS SUMMARY | 2024-08-08 15:55 | XMS_ITS | Encounter Summary ---
Author Organization [facility] and [facility] Address 20 [place] [address] Care Team Providers Care Casing Cleaner Name Role Phone Caitlyn Bowie MD Primary Care Provider +1- [phone] Encounter Details Date Type Department Care Team (Late Contact Info) Description 01/31/2023 Abstract [facility] 35 [facility] [place] [address] Shilpi Romero, RN Social History Tobacco Use [...] at [facility] 240 [facility] Building [address] [place], [place] [address] Ronald Mills MD 240 [facility] Max [address] [place] [address] documented as of this encounter Visit Diagnoses Not on filedocumented in this encounter Additional Health Concerns Assessment Noted Time PHQ-9 Depression Total Score: 2 11/07/19 19 2:06 PM EDT documented as of this encounter Care Teams Casing Cleaner Relationship Specialty Start Date End Date Caitlyn Bowie MD [address] [address] PCP - General Internal Medicine 05/06/21 documented as of this encounter
--- OUTSIDE RECORDS SUMMARY | 2024-08-08 15:55 | XMS_ITS | Encounter Summary ---
Author Organization [facility] and [facility] Address [address] [place] [address] Care Team Providers Care Crankshaft Straightener Name Role Phone Caitlyn Bowie MD Primary Care Provider +1- [phone] Encounter Details Date Type Department Care Team (Late st Contact Info) Description 08/23/2022 Abstract Cardiovascular Medicine at [address] [place] [address] Norma Renee MD [address] [place] [phone] Social History Tobacco Use Types Packs/Day Years [...] 1:00 PM EDT Telemedicine Cancer Center at [address] [place] [address] Ronald Mills MD [address] [place] [address] [address] [place] [address] documented as of this encounter Visit Diagnoses Not on filedocumented in this encounter Additional Health Concerns Assessment Noted Time PHQ-9 Depression Total Score: 2 11/07/19 19 2:06 PM EDT documented as of this encounter Care Teams Crankshaft Straightener Relationship Specialty Start Date End Date Caitlyn Bowie MD [address] [address] PCP - General Internal Medicine 05/06/21 documented as of this encounter
--- OUTSIDE RECORDS SUMMARY | 2024-08-08 15:55 | XMS_ITS | Encounter Summary ---
Author Organization [facility] and [facility] Address [address] [place] [address] Care Team Providers Care Wet Roller Name Role Phone Caitlyn Bowie MD Primary Care Provider +1- [phone] Encounter Details Date Type Department Care Team (Late st Contact Info) Description 06/20/2022 Scanned Document INTERFACE DEFAULT [address] [place] [address] System, Provider Not In Social History Tobacco [...] at [facility] 240 [facility] Building [address] [place], [place] [address] Ronald Mills MD [address] [place] [address] [address] [place] [address] documented as of this encounter [...] documented as of this encounter Care Teams Wet Roller Relationship Specialty Start Date End Date Caitlyn Bowie MD [facility] [address] [address] PCP - General Internal Medicine 05/06/21 documented as of this encounter
--- OUTSIDE RECORDS SUMMARY | 2024-08-08 15:55 | XMS_ITS | Encounter Summary ---
Author Organization [facility] Address [address] [place] [address] Care Team Providers Care Deputy Probation Officer Name Role Phone Caitlyn Bowie MD Primary Care Provider +1- [phone] Encounter Details Date Type Department Care Team (Late st Contact Info) Description 07/22/2021 Scanned Document INTERFACE DEFAULT [address] [place] [address] System, Provider Not In Social History Tobacco [...] 240 [facility] Building [address] [place], [place] [address] Ronald Mills MD [address] [place] [address] [address] [place] [address] documented as of this encounter Procedures [...] as of this encounter Care Teams Deputy Probation Officer Relationship Specialty Start Date End Date Caitlyn Bowie MD [address] [address] PCP - General Internal Medicine 05/06/21 documented as of this encounter
--- OUTSIDE RECORDS SUMMARY | 2024-08-08 15:55 | XMS_ITS | Encounter Summary ---
Author Organization [facility] and [facility] Address [address] [place] [address] Care Team Providers Care Sustainability Coach Name Role Phone Caitlyn Bowie MD Primary Care Provider +1- [phone] Encounter Details Date Type Department Care Team (Late st Contact Info) Description 06/28/2022 Scanned Document INTERFACE DEFAULT [address] [place] [address] System, Provider Not In Social History Tobacco [...] Center at [facility] 240 [facility] Building [address] [place], [place] [address] Ronald Mills MD [address] [place] [address] [address]1 [place] [address] documented as of this encounter [...] End Date Caitlyn Bowie MD [address] [address] PCP - General Internal Medicine 05/06/21 documented as of this encounter
--- OUTSIDE RECORDS SUMMARY | 2024-08-08 15:55 | XMS_ITS | Encounter Summary ---
Author Organization [facility] and [facility] Address [address] [place] [address] Care Team Providers Care Clinical Nursing Director Name Role Phone Caitlyn Bowie MD Primary Care Provider +1- [phone] Reason for Visit * Reason Comments Triage extream dry skin Encounter Details Date Type Department Care Team ([facility] st Contact Info) Description 05/12/2023 Telephone Medical Dermatology at [address] [address] Augustine Vargas MD [address] [place] [phone] Triage (extream dry skin) Social History [...] to her by Dr. Vargas at the [facility]. Requested that she send pictures which will [...] know if there's something the can prescribe. [phone] documented in this encounter Plan of Treatment Upcoming Encounters Date Type Department Care Team (Late st Contact Info) Description 10/31/2024 1:00 PM EDT Telemedicine Cancer Center at [facility] [address] [facility] Building [address] [place], [place] [address] Ronald Mills MD [address] [place] [address] [address] [place] [address] documented as of this encounter Visit Diagnoses Not on filedocumented in this encounter Additional Health Concerns Assessment Noted Time PHQ-9 Depression Total Score: 2 11/07/19 19 2:06 PM EDT documented as of this encounter Care Teams Clinical Nursing Director Relationship Specialty Start Date End Date Caitlyn Bowie MD [address] [address] PCP - General Internal Medicine 05/06/21 documented as of this encounter
--- OUTSIDE RECORDS SUMMARY | 2024-08-08 15:55 | XMS_ITS | Encounter Summary ---
Author Organization [facility] Address [address] [place] [address] Care Team Providers Care Judicial Registrar Name Role Phone Pcp, No Primary Care Provider Brennan Mario MD Primary Care Provider [phone] Caitlyn Bowie MD Primary Care Provider +1- [phone] Encounter Details Date Type Department Care Team (Late st Contact Info) Description 01/04/2022 Scanned Document [facility] Neurology Ophthalmology [address] [address] Yary Whitten DO [address] [place] [address] Social History Tobacco Use Types Packs/Day [...] on filedocumented in this encounter Care Teams Judicial Registrar Relationship Specialty Start Date End Date Pcp, No PCP - General General Medicine 10/04/21 07/18/22 Brennan Burnett MD [address] [place] [address] PCP - General 07/19/22 03/19/23 Caitlyn Bowie MD [address] [place] [address] PCP - General Internal Medicine 03/20/23 documented as of this encounter
--- OUTSIDE RECORDS SUMMARY | 2024-08-08 15:55 | XMS_ITS | Encounter Summary ---
Author Organization [facility] Address [address] [place] [address] Care Team Providers Care Vocational Nurse Lvn Name Role Phone Caitlyn Bowie MD Primary Care Provider +1- [phone] Encounter Details Date Type Department Care Team (Late st Contact Info) Description 07/07/2021 Scanned Document INTERFACE DEFAULT [address] [place] [address] System, Provider Not In Social History Tobacco [...] [facility] 240 [facility] Building [address] [place] [address] Ronald Mills MD [address] [place] [address] [address] [place] [address] documented as of this encounter Visit Diagnoses Not on filedocumented in this encounter Additional Health Concerns Infection Onset Date Last Indicated Resolved Time COVID-19 03/05/2022 03/05/2022 03/15/2022 7:18 PM EDT Assessment Noted Time PHQ-9 Depression Total Score: 2 11/07/19 19 2:06 PM EDT documented as of this encounter Care Teams Vocational Nurse Lvn Relationship Specialty Start Date End Date Caitlyn Bowie MD [address] [address] PCP - General Internal Medicine 05/06/21 documented as of this encounter
--- OUTSIDE RECORDS SUMMARY | 2024-08-08 15:55 | XMS_ITS ---
Author Organization [facility] Address [address] [facility] [address] [place] [address] Care Team Providers Care Fleet Mechanic Name Role Phone EVELIN RAMSAY Primary Care Provider Yenny Hou Unavailable [phone] Allergies Allergen (clinical drug ingredient) Drug/Non Drug [...] Active Results Component Value Reference Range Notes Urinalysis Reviewed date:07/09/2024 11:03:01 AM Interpretation: Performing Lab: Notes/Report: NITRITE NEG PH 6.0 PROTEIN TR S.G 1.015 WBC NEG GLUCOSE NEG KETONES NEG UROBILINOGEN NEG BILIRUBIN NEG BLOOD NEG REASON FOR VISIT FOUL SMELLING VAGINAL DISCHARGE Medications Medication SIG (Take, Route, Frequency, Duration) Notes Start Date End Date Status traZODone HCl 50MG 1 ORAL at bedtime fo r -3 [facility] 06/10/2014 Active Azelastine HCl 0.15 % TWO SPRAYS INTO EA CH NOSTRIL TWO TIMES A DAY Nasal for 25 Active coumadin 1 tab Oral scaled Ac tive ZyrTEC Allergy 10MG 1 ORAL daily for -3 06/10/2014 Active Valium 5MG 1 tablet as needed O RAL at bedtime, 1/2 tab prn during the day [facility] 06/10/2014 Active Advair HFA 230-21MCG/ACT 2 Inhalation tw ice daily for -3 06/10/2014 Active EpiPen Active Meclizine HCl 25 MG 1 tablet as needed Orally [facility] 06/10/2014 Active Rosuvastatin Calcium 05/03/2024 Active predniSONE 2.5 MG Oral for 30 Active Singulair 10 MG 1 tablet Orally Once a day Active Metoprolol Succinate ER 50 MG 1 tablet Orally Once a day Active Synthroid 25MCG 1 ORAL daily for -3 [facility] 06/10/2014 Active Albuterol Sulfate (2.5 MG/3ML)0.083% Inhalation 4 x a day prn 06/10/2014 Active Furosemide 20 MG TAKE ONE TABLET BY MOUTH EVERY DAY NEEDED FOR LEG SWELLING Oral for 90 Active Cefpodoxime Proxetil 200 MG 1 tablet with food Orally every 12 hrs for 14 day(s) 05/13/2024 Not-Taking Vitamin C 500 MG as directed Orally Active Potassium Active Estradiol 10 MCG 1 tablet Vaginal Two times a Week for 90 days 07/09/2024 Active Clindamycin Phosphate 2 % 1 application at bedtime Vaginal EVERY NIGHT for 7 days 07/09/2024 Active Social History Tobacco Use: Social History [...] Notes Tobacco use: Nonsmoker Vital Signs Temperature 98.0 degrees Fahrenheit 07/09/20 24 Blood pressure systolic 112 mm Hg 07/09/20 24 Blood pressure diastolic 86 mm Hg 024 Height 63 in 07/09/2024 Weight 126 lbs 07/09/2024 BMI 22.32 kg/m2 07/09/2024 Encounters Encounter Location Date Provider Diagnosis Total [address] [place] [address] 07/09/2024 Yenny Lovettva Urgency of urination R39.15 ; Acute vaginitis N76.0 and Postmenopausal atrophic vaginitis N95.2 Assessments Encounter Date Diagnosis (ICD Code) Assessment Notes Treatment Notes Treatment Clinical Notes Section Notes 07/09/2024 Urgency of urination (ICD-10 - R39.15) 07/09/2024 Acute vaginitis (ICD-10 - N76.0) DISCUSSED [...] TX. RECURRENT NATURE OF BV WAS EMPHASIZED. 07/09/2024 Postmenopausal atrophic vaginitis (ICD-10 - N95.2) DISCUSSED VAGINAL ATROPHY INCREASING HER RISK OF BV RECURRENCE. RECOMMENDED SHE USE INTRAVAGINAL ESTROGEN AND SHE AGREED. RX AND INSTRUCTIONS FOR ESTRADIOL TABS 10 MG WERE GIVEN. Plan Of Treatment Medication Medication Name Sig Start Date Stop Date Notes Estradiol 10 MCG 1 tablet Vaginal Two times a Week for 90 days 07/09/2024 Clindamycin Phosphate 2 % 1 application at bedtime Vaginal EVERY NIGHT for 7 days 07/09/2024 Treatment Notes Assessment Notes Acute vaginitis DISCUSSED FINDINGS, DX AND TX OPTIONS. PAT [...] TX. RECURRENT NATURE OF BV WAS EMPHASIZED. Postmenopausal atrophic vaginitis DISCUSSED VAGINAL ATROPHY INCREASING HER RISK OF BV RECURRENCE. RECOMMENDED SHE USE INTRAVAGINAL ESTROGEN AND SHE AGREED. RX AND INSTRUCTIONS FOR ESTRADIOL TABS 10 MG WERE GIVEN. Next Appt Details Follow Up: prn, Reason: Progress Notes * TONIE WATSONOB:1945 (79 yo F)Acc No.[id number]:07/09/2024 PROGRESS NOTES Patient:?SHIRLEY CINDA Appointment Provider:?Yenny doan M.D. :1945???Age:79 Y???Sex:Female D ate:07/09/2024 Address:[address] [place] [address], [facility] Pcp:EVELIN RAMSAY Subjective: * Chief Complaints: * ???FOUL SMELLING VAGINAL DIS CHARGE * HPI: ???New/Follow-up Patient Consult:?PAT C/O SEVERELY FOUL SMELLING VAGINAL DISCHARGE OF A FEW DAYS DURATION.? SHE IS NOT ON HRT AND IS NOT USING ANY INTRAVAGINAL ESTROGENS.? SHE IS NOT SEXUALLY ACTIVE.? SHE IS HERE FOR EVALUATION AND MX. S/P TAHBSO AT AGE 31 FOR ENDOMETRIOSIS AND FIBROIDS. * ROS:?general:?no?chest pain.?no?palpitations.?no?headache.?no?cough.?no?shortness of breath.?no?fever.?no?unexplained weight loss.?no?nausea/vomiting.?no?change in bowel movements.?no blood in stool.?genitourinary complaints?yes,?FISHY ODORED DISCHARGE.?no?skin complaints.? * Medical History:? * Goods Layer History:?/ Para?2/2.?Sexual activity?not currently sexually active.?Last Pap [...] as needed Orally , Notes to Pharmacist: KhadratraZODone HCl 50MG 1 ORAL at bedtime , Notes to Pharmacist: KhadraValium 5MG 1 tablet as needed ORAL at bedtime, 1/2 tab prn during the day , Notes to Pharmacist: KhadraZyrTEC Allergy 10MG 1 ORAL daily coumadin 1 tab Oral scaled Azelastine HCl 0.15 % Solution TWO SPRAYS INTO EACH NOSTRIL TWO TIMES A DAY Nasal Vitamin C 500 MG Capsule as directed Orally Taking Potassium Taking Albuterol Sulfate (2.5 MG/3ML)0.083% Inhalation 4 x a day prn Taking Synthroid 25MCG 1 ORAL daily , Notes to Pharmacist: Nely Metoprolol Succinate ER 50 MG Tablet Extended [...] ORAL at bedtime , Notes to Pharmacist: Mario Olivera Valium 5MG 1 tablet as needed ORAL at bedtime, 1/2 tab prn during the day , Notes to Pharmacist: Nely ZyrTEC Allergy 10MG 1 ORAL daily Taking coumadin 1 tab Oral scaled Taking Azelastine HCl 0.15 % Solution TWO SPRAYS INTO EACH NOSTRIL TWO TIMES A DAY Nasal Taking Vitamin C 500 MG Capsule as directed Orally Not- TakingCefpodoxime Proxetil 200 MG Tablet 1 tablet with [...] in, Wt: 126 l bs, BMI:22.32Index, BP: 112/86 mm Hg, Temp: 98.0 F. * Examination: ???RACING MANAGER exam: ?EXTERNAL GENITALIA:?Normal female. No lesions, erythema or discharge.?VAGINA:?atrophic changes, erythematous with yellow white discharge, pH>4.5, +whiff test.?CERVIX:?surgically absent.?UTERUS:?absent.?ADNEXA:?surgically absent.? Assessment: * Assessment: 1.?Urgency of urination - R3 9.15???2.?Acute vaginitis - N76.0???3.?Postmenopausal atrophic vaginitis - N95.2??? Plan: * Treatment: ? Value Reference Range ?NITRITE NEG * ?PH 6.0 * ?PROTEIN TR * ?S.G 1.015 * ?WBC NEG * ?GLUCOSE NEG * ?KETONES NEG * ?UROBILINOGEN NEG * ?BILIRUBIN NEG * ?BLOOD NEG 2.?Acute vaginitis? Start Clindamycin Phosphate Cream, 2 %, 1 application at bedtime, Vaginal, EVERY NIGHT, 7 days, 40 Gram, Refills 2.?? Notes: DISCUSSED FINDINGS, DX AND TX OPTIONS. DOYLE IS ALLERGIC TO A LOT OF MEDICATIONS INCLUDING METRONIDAZOLE. SHE WILL APPLY A SMALL AMOUNT OF CLINDAMYCIN CREAM ON HER INNER ARM FOR A FEW DAYS TO MAKE SURE SHEIS NOT ALLERGIC TO THIS. RX AND DETAILED INSTRUCTIONS FOR CLINDAMYCIN WERE GIVEN. SHE UNDERSTANDS AND ACCEPTS BENEFITS AND RISKS OF THIS TX. RECURRENT NATURE OF BV WAS EMPHASIZED.??3.?Postmenopausal atrophic vaginitis? Start Estradiol Tablet, 10 MCG, 1 tablet, Vaginal, Two times a Week, 90 days, 24 Tablet, Refills 3. ? Notes: DISCUSSED VAGINAL ATROPHY INCREASING HER RISK OF BV RECURRENCE. RECOMMENDED SHE USE INTRAVAGINAL ESTROGEN AND SHE AGREED. RX AND INSTRUCTIONS FOR ESTRADIOL TABS 10 MG WERE GIVEN.?? * Procedure Codes:? * Follow Up:?prn * Images: Billing Information: * Visit Code:? * Procedure Codes:? * Sign off status: Completed true * Appointment Provider:?Yenny Elizalde M.D. Date:?07/09/2024 Generated for Arely paige/Sebastian/Zacheryitting on:?08/08/2024 02:47 PM EST History and Physical Notes * HPI (History of Present Illness) Category Sub-Category Detail Notes Category Not es New/Follow-up Patient Consult PAT C/O SEVERELY FOUL SMELLING VAGINAL DISCHARGE OF A FEW DAYS DURATION. SHE IS NOT ON HRT AND IS NOT USING ANY INTRAVAGINAL ESTROGENS. SHE IS NOT SEXUALLY ACTIVE. SHE IS HERE FOR EVALUATION AND MX. S/P TAHBSO AT AGE 31 FOR ENDOMETRIOSIS AND FIBROIDS. Examination Category Sub-Category Detail Notes Category Not es RACING MANAGER exam CERVIX: surgically absent VAGINA: atrophic changes, er ythematous with yellow white discharge, pH>4.5, +whiff test EXTERNAL GENITALIA: Normal female. No le sions, erythema or discharge UTERUS: absent ADNEXA: surgically absent
--- OUTSIDE RECORDS SUMMARY | 2024-08-08 15:55 | XMS_ITS | Encounter Summary ---
Author Organization [facility] Address [address] [place] [address] Care Team Providers Care Ad Setter Name Role Phone Caitlyn Bowie MD Primary Care Provider +1- [phone] Encounter Details Date Type Department Care Team (Late st Contact Info) Description 07/08/2022 Scanned Document Cardiovascular Medicine at [address] [place] [phone] Norma Renee MD [address] [place] [phone] Social History Tobacco Use Types Packs/Day Years [...] PM EDT Telemedicine Cancer Center at [address] [place] [address] Ronald Mills MD [address] [place] [address] [address] [place] [address] documented as of this encounter Visit Diagnoses Not on filedocumented in this encounter Additional Health Concerns Assessment Noted Time PHQ-9 Depression Total Score: 2 11/07/19 19 2:06 PM EDT documented as of this encounter Care Teams Ad Setter Relationship Specialty Start Date End Date Caitlyn Bowie MD [address] [address] PCP - General Internal Medicine 05/06/21 documented as of this encounter
--- OUTSIDE RECORDS SUMMARY | 2024-08-08 15:55 | XMS_ITS | Encounter Summary ---
Author Organization [facility] and [facility] Address [address] [place] [address] Care Team Providers Care Supervisor Research Shop Name Role Phone Caitlyn Bowie MD Primary Care Provider +1- [phone] Encounter Details Date Type Department Care Team (Late st Contact Info) Description 06/21/2022 Scanned Document INTERFACE DEFAULT [address] [place] [address] System, Provider Not In Social History Tobacco [...] Center at [facility] [address] [facility] Building [address] [place], [place] [phone] Ronald Mills MD [address] [place] [address] [address] [place] [address] documented as of this encounter [...] as of this encounter Care Teams Supervisor Research Shop Relationship Specialty Start Date End Date Caitlyn Bowie MD [address] [address] PCP - General Internal Medicine 05/06/21 documented as of this encounter
--- OUTSIDE RECORDS SUMMARY | 2024-08-08 15:55 | XMS_ITS | Encounter Summary ---
Author Organization [facility] and [facility] Address [address] [place] [address] Care Team Providers Care High Man Name Role Phone Caitlyn Bowie MD Primary Care Provider +1- [phone] Encounter Details Date Type Department Care Team (Late st Contact Info) Description 06/27/2022 Scanned Document INTERFACE DEFAULT [address] [place] [address] System, Provider Not In Social History Tobacco [...] [facility] [address] [facility] Building [address] [place], [place] [phone] Ronald Mills MD [address] [place] [address] [address] [place] [address] documented as of this encounter [...] documented as of this encounter Care Teams High Man Relationship Specialty Start Date End Date Caitlyn Bowie MD [facility] [address] [address] PCP - General Internal Medicine 05/06/21 documented as of this encounter
--- OUTSIDE RECORDS SUMMARY | 2024-08-08 15:56 | XMS_ITS | Encounter Summary ---
Author Organization [facility] Address [address] [place] [address] Care Team Providers Care Senior Controls Engineer Name Role Phone Caitlyn Bowie MD Primary Care Provider +1- [phone] Encounter Details Date Type Department Care Team (Late st Contact Info) Description 01/08/2022 Scanned Document INTERFACE DEFAULT [address] [place] [address] System, Provider Not In Social History Tobacco [...] [facility] at [facility] [address] [facility] Building [address] [place], [place] [phone] Ronald Mills MD [address] [place] [address] [address] [place] [address] documented as of this encounter [...] as of this encounter Care Teams Senior Controls Engineer Relationship Specialty Start Date End Date Caitlyn Bowie MD [address] [address] PCP - General Internal Medicine 05/06/21 documented as of this encounter
--- OUTSIDE RECORDS SUMMARY | 2024-08-08 15:56 | XMS_ITS | Encounter Summary ---
Author Organization [facility] Address [address] [place] [address] Care Team Providers Care Inseam Trimmer Name Role Phone Caitlyn Bowie MD Primary Care Provider +1- [phone] Encounter Details Date Type Department Care Team (Late st Contact Info) Description 04/22/2019 Scanned Document [facility] Health Information Management [address] [place] [address] External, Provider Social History Tobacco Use Types [...] [facility] [address] [facility] [address] [place] [address] Ronald Mills MD [address] [place] [address] [address] [place] [address] documented as of this encounter Visit Diagnoses Not on filedocumented in this encounter Additional Health Concerns Infection Onset Date Last Indicated Resolved Time COVID-19 03/05/2022 03/05/2022 03/15/2022 7:18 PM EDT Assessment Noted Time PHQ-9 Depression Total Score: 2 11/07/19 19 2:06 PM EDT documented as of this encounter Care Teams Inseam Trimmer Relationship Specialty Start Date End Date Caitlyn Bowie MD 3400 [facility] 1 [place] [address] PCP - General Internal Medicine 05/06/21 Henry Kelly MD Pulmonary Department [address] [facility] [place] [address] Physician Pulmonary Disease 09/06/17 06/22/20 documented as of this encounter
--- OUTSIDE RECORDS SUMMARY | 2024-08-08 15:56 | XMS_ITS | Encounter Summary ---
Author Organization [facility] and [facility] Address [address] [place] [address] Care Team Providers Care Knitting Machine Operator Name Role Phone Caitlyn Bowie MD Primary Care Provider +1- [phone] Encounter Details Date Type Department Care Team (Late st Contact Info) Description 12/16/2015 Scanned Document [facility] Health Information Management [address] [place] [phone] External, Provider Social History Tobacco Use Types [...] at [facility] [address] [facility] Building [address] [place], [place] [phone] Ronald Mills MD 240 [facility] [address] [place] [address] documented as of this encounter Procedures Procedure Name Priority Date/Time Associated Diagnosis Comments US RESULT SCAN Routine 12/16/2015 documented in this encounter Results * US Result Scan (12/16/2015) us Provider External IMG SCAN REPORTS Edited Result - Final [facility] [place], [place], [facility] documented in this encounter Visit Diagnoses Not on filedocumented in this encounter Additional Health Concerns Infection Onset Date Last Indicated Resolved Time COVID-19 03/05/2022 03/05/2022 03/15/2022 7:18 PM EDT documented as of this encounter Care Teams Knitting Machine Operator Relationship Specialty Start Date End Date Caitlyn Bowie MD 3400 [facility] Max 1 [place] [address] PCP - General Internal Medicine 05/06/21 Henry Kelly MD Pulmonary Department 175 [facility] [place] [address] Physician Pulmonary Disease 09/06/17 06/22/20 documented as of this encounter
--- OUTSIDE RECORDS SUMMARY | 2024-08-08 15:56 | XMS_ITS | Encounter Summary ---
Author Organization [facility] Address [address] [place] [address] Care Team Providers Care Sample Display Preparer Name Role Phone Caitlyn Bowie MD Primary Care Provider +1- [phone] Encounter Details Date Type Department Care Team (Late st Contact Info) Description 11/04/2015 Scanned Document [facility] Health Information Management [address] [place] [address] External, Provider Social History Tobacco Use Types [...] [facility] 240 [facility] Building [address] [place], [place] [phone] Ronald Mlils MD 240 [facility] [address] [place] [address] documented as of this encounter Procedures Procedure Name Priority Date/Time Associated Diagnosis Comments NUC MED/PET RESULT SCAN Routine 11/04/2015 documented in this encounter Results * Nuc Med/PET Result Scan (11/04/2015) us Provider External IMG SCAN REPORTS Edited Result - Final [facility] [place], [place], [facility] documented in this encounter Visit Diagnoses Not on filedocumented in this encounter Additional Health Concerns Infection Onset Date Last Indicated Resolved Time COVID-19 03/05/2022 03/05/2022 03/15/2022 7:18 PM EDT documented as of this encounter Care Teams Sample Display Preparer Relationship Specialty Start Date End Date Caitlyn Bowie MD 3400 [facility] Max 1 [place] [address] PCP - General Internal Medicine 05/06/21 Henry Kelly MD Pulmonary Department 175 [facility] [place] [address] Physician Pulmonary Disease 09/06/17 06/22/20 documented as of this encounter
--- OUTSIDE RECORDS SUMMARY | 2024-08-08 15:56 | XMS_ITS | Encounter Summary ---
Author Organization [facility] Address [address] [place] [address] Care Team Providers Care Air Traffic Control Operator Name Role Phone Caitlyn Bowie MD Primary Care Provider +1- [phone] Encounter Details Date Type Department Care Team (Late st Contact Info) Description 03/02/2022 Scanned Document [facility] Health Information Management [address] [place] [address] External, Provider Social History Tobacco Use Types [...] at [facility] 240 [facility] Building [address] [place], [place] [phone] Ronald Mills MD [address] [place] [address] [address] [place] [address] documented as of this encounter Visit Diagnoses Not on filedocumented in this encounter Additional Health Concerns Infection Onset Date Last Indicated Resolved Time COVID-19 03/05/2022 03/05/2022 03/15/2022 7:18 PM EDT Assessment Noted Time PHQ-9 Depression Total Score: 2 11/07/19 19 2:06 PM EDT documented as of this encounter Care Teams Air Traffic Control Operator Relationship Specialty Start Date End Date Caitlyn Bowie MD [address] [address] PCP - General Internal Medicine 05/06/21 documented as of this encounter
--- OUTSIDE RECORDS SUMMARY | 2024-08-08 15:56 | XMS_ITS | Encounter Summary ---
Author Organization [facility] and [facility] Address [address] [place] [address] Care Team Providers Care Check Scaler Name Role Phone Caitlyn Bowie MD Primary Care Provider +1- [phone] Encounter Details Date Type Department Care Team (Late st Contact Info) Description 01/13/2019 Scanned Document [facility] Health Information Management [address] [place] [address] External, Provider Social History Tobacco Use Types [...] [facility] [address] [facility] [address] [place] [address] Ronald Mills MD [address] [place] [address] [address] [place] [address] documented as of this encounter [...] documented as of this encounter Care Teams Check Scaler Relationship Specialty Start Date End Date Caitlyn Bowie MD 3400 [facility] 1 [place] [address] PCP - General Internal Medicine 05/06/21 Henry Kelly MD Pulmonary Department 175 [facility], [address] [place] [address] Physician Pulmonary Disease 09/06/17 06/22/20 documented as of this encounter
--- OUTSIDE RECORDS SUMMARY | 2024-08-08 15:56 | XMS_ITS | Encounter Summary ---
Author Organization [facility] and [facility] Address [address] [place] [address] Care Team Providers Care Superintendent Construction Name Role Phone Caitlyn Bowie MD Primary Care Provider +1- [phone] Encounter Details Date Type Department Care Team (Late st Contact Info) Description 01/02/2019 Scanned Document [facility] Health Information Management [address] [place] [address] External, Provider Social History Tobacco Use Types [...] [facility] 240 [facility] [address] [place] [address] Ronald Mills MD [address] [place] [address] [address] [place] [address] documented as of this encounter [...] as of this encounter Care Teams Superintendent Construction Relationship Specialty Start Date End Date Caitlyn Bowie MD 3400 [facility] 1 [place] [address] PCP - General Internal Medicine 05/06/21 Henry Kelly MD Pulmonary Department 175 [facility], [address] [place] [address] Physician Pulmonary Disease 09/06/17 06/22/20 documented as of this encounter
--- OUTSIDE RECORDS SUMMARY | 2024-08-08 15:56 | XMS_ITS | Encounter Summary ---
Author Organization [facility] and [facility] Address [address] [place] [address] Care Team Providers Care Liquor Runner Name Role Phone Caitlyn Bowie MD Primary Care Provider +1- [phone] Encounter Details Date Type Department Care Team (Late st Contact Info) Description 11/03/2015 Scanned Document [facility] Health Information Management [address] [place] [address] External, Provider Social History Tobacco Use Types [...] at [facility] 240 [facility] [address] [place], [place] [phone] Ronald Mills MD 240 [facility] [address] [place] [address] documented as of this encounter Procedures Procedure Name Priority Date/Time Associated Diagnosis Comments US RESULT SCAN Routine 11/03/2015 documented in this encounter Results * US Result Scan (11/03/2015) us Provider External IMG SCAN REPORTS Edited Result - Final [facility] [place], [place], [facility] documented in this encounter Visit Diagnoses Not on filedocumented in this encounter Additional Health Concerns Infection Onset Date Last Indicated Resolved Time COVID-19 03/05/2022 03/05/2022 03/15/2022 7:18 PM EDT documented as of this encounter Care Teams Liquor Runner Relationship Specialty Start Date End Date Caitlyn Bowie MD 3400 [facility] [address] 1 [place] [address] PCP - General Internal Medicine 05/06/21 Henry Kelly MD Pulmonary Department 175 [facility], [address] [place] [address] Physician Pulmonary Disease 09/06/17 06/22/20 documented as of this encounter
--- OUTSIDE RECORDS SUMMARY | 2024-08-08 15:56 | XMS_ITS | Encounter Summary ---
Author Organization [facility] Address [address] [place] [address] Care Team Providers Care Cloud Administrator Name Role Phone Caitlyn Bowie MD Primary Care Provider +1- [phone] Encounter Details Date Type Department Care Team (Late st Contact Info) Description 03/20/2023 Scanned Document [facility] Radiology [address] [place] [address] Caitlyn Bowie MD [address] [place] [address] Social History Tobacco Use Types Packs/Day Years [...] on filedocumented in this encounter Care Teams Cloud Administrator Relationship Specialty Start Date End Date Caitlyn Bowie MD [address]00 [place] [address] PCP - General Internal Medicine 03/20/23 documented as of this encounter
--- OUTSIDE RECORDS SUMMARY | 2024-08-08 15:56 | XMS_ITS | Encounter Summary ---
Author Organization [facility] Address [address] [place] [address] Care Team Providers Care Check Out Clerk Name Role Phone Caitlyn Bowie MD Primary Care Provider +1- [phone] Encounter Details Date Type Department Care Team (Late st Contact Info) Description 09/09/2015 Scanned Document [facility] Health Information Management [address] [place] [address] External, Provider Social History Tobacco Use Types [...] at [facility] 240 [facility] [address] [place], [place] [id number] Ronald Mills MD 240 [facility] [address] [place] [address] documented as of this encounter Procedures Procedure Name Priority Date/Time Associated Diagnosis Comments LAB SCAN Routine 09/09/2015 documented in this encounter Results * Lab Scan (09/09/2015) Blood specimen (specimen) us Provider External LAB BLOOD ORDERABLES Final Res ult [facility] documented in this encounter Visit Diagnoses Not on filedocumented in this encounter Additional Health Concerns Infection Onset Date Last Indicated Resolved Time COVID-19 03/05/2022 03/05/2022 03/15/2022 7:18 PM EDT documented as of this encounter Care Teams Check Out Clerk Relationship Specialty Start Date End Date Caitlyn Bowie MD 3400 [facility] 1 [place] [address] PCP - General Internal Medicine 05/06/21 Henry Kelly MD Pulmonary Department 175 [facility], [address] [place] [address] Physician Pulmonary Disease 09/06/17 06/22/20 documented as of this encounter
--- OUTSIDE RECORDS SUMMARY | 2024-08-08 15:56 | XMS_ITS | Encounter Summary ---
Author Organization [facility] and [facility] Address [address] [place] [address] Care Team Providers Care Associate Of Science In Nursing Name Role Phone Caitlyn Bowie MD Primary Care Provider +1- [phone] Encounter Details Date Type Department Care Team (Late Contact Info) Description 04/12/2022 Scanned Document [facility] Health Information Management [address] [place] [address] External, Provider Social History Tobacco Use Types [...] [facility] 240 [facility] Building [address] [place], [place] [id number] Ronald Mills MD [address] [place] [address] [address] [place] [address] documented as of this encounter [...] documented as of this encounter Care Teams Associate Of Science In Nursing Relationship Specialty Start Date End Date Caitlyn Bowie MD [address] [address] PCP - General Internal Medicine 05/06/21 documented as of this encounter
--- OUTSIDE RECORDS SUMMARY | 2024-08-08 15:56 | XMS_ITS | Encounter Summary ---
Author Organization [facility] and [facility] Address [address] [place] [address] Care Team Providers Care Music Copyist Name Role Phone Caitlyn Bowie MD Primary Care Provider +1- [phone] Encounter Details Date Type Department Care Team (Late st Contact Info) Description 04/18/2022 Scanned Document INTERFACE DEFAULT [address] [place] [address] System, Provider Not In Social History Tobacco [...] [facility] 240 [facility] [address] [place] [address] Ronald Mills MD [address] [place] [address] [address] [place] [address] documented as of this encounter Visit Diagnoses Not on filedocumented in this encounter Additional Health Concerns Assessment Noted Time PHQ-9 Depression Total Score: 2 11/07/19 19 2:06 PM EDT documented as of this encounter Care Teams Music Copyist Relationship Specialty Start Date End Date Caitlyn Bowie MD [address] [address] PCP - General Internal Medicine 05/06/21 documented as of this encounter
--- OUTSIDE RECORDS SUMMARY | 2024-08-08 15:56 | XMS_ITS | Encounter Summary ---
Author Organization [facility] and [facility] Address [address] [place] [address] Care Team Providers Care Business Support Liaison Name Role Phone Caitlyn Bowie MD Primary Care Provider +1- [phone] Encounter Details Date Type Department Care Team (Late st Contact Info) Description 12/01/2015 Scanned Document [facility] Health Information Management [address] [place] [address] External, Provider Social History Tobacco Use Types [...] [facility] 240 [facility] Building [address] [place], [place] [phone] Ronald Mills MD 240 [facility] [address] [place] [address] documented as of this encounter Procedures Procedure Name Priority Date/Time Associated Diagnosis Comments CT RESULT SCAN Routine 12/01/2015 documented in this encounter Results * CT Result Scan (12/01/2015) us Provider External IMG SCAN REPORTS Edited Result - Final [facility] [place], [place], [facility] documented in this encounter Visit Diagnoses Not on filedocumented in this encounter Additional Health Concerns Infection Onset Date Last Indicated Resolved Time COVID-19 03/05/2022 03/05/2022 03/15/2022 7:18 PM EDT documented as of this encounter Care Teams Business Support Liaison Relationship Specialty Start Date End Date Caitlyn Bowie MD 3400 [facility] Max 1 [place] [address] PCP - General Internal Medicine 05/06/21 Henry Kelly MD Pulmonary Department 175 [facility], [address] [place] [address] Physician Pulmonary Disease 09/06/17 06/22/20 documented as of this encounter
--- OUTSIDE RECORDS SUMMARY | 2024-08-08 15:56 | XMS_ITS | Encounter Summary ---
Author Organization [facility] and [facility] Address [address] [place] [address] Care Team Providers Care Geophysical Operator Name Role Phone Caitlyn Bowie MD Primary Care Provider +1- [phone] Encounter Details Date Type Department Care Team (Late st Contact Info) Description 12/03/2015 Scanned Document [facility] Health Information Management [address] [place] [address] External, Provider Social History Tobacco Use Types [...] [facility] 240 [facility] Building [address] [place], [place] [phone] Ronald Mills MD 240 [facility] Max [address] [place] [address] documented as of this encounter Procedures Procedure Name Priority Date/Time Associated Diagnosis Comments LAB SCAN Routine 12/03/2015 documented in this encounter Results * Lab Scan (12/03/2015) Blood specimen (specimen) us Provider External LAB BLOOD ORDERABLES Edited Re sult - Final [facility] documented in this encounter Visit Diagnoses Not on filedocumented in this encounter Additional Health Concerns Infection Onset Date Last Indicated Resolved Time COVID-19 03/05/2022 03/05/2022 03/15/2022 7:18 PM EDT documented as of this encounter Care Teams Geophysical Operator Relationship Specialty Start Date End Date Caitlyn Bowie MD 3400 [facility] 1 [place] [address] PCP - General Internal Medicine 05/06/21 Henry Kelly MD Pulmonary Department 175 [facility], [address] [place] [address] Physician Pulmonary Disease 09/06/17 06/22/20 documented as of this encounter
--- OUTSIDE RECORDS SUMMARY | 2024-08-08 15:56 | XMS_ITS | Encounter Summary ---
Author Organization [facility] and [facility] Address [address] [place] [address] Care Team Providers Care Crew Leader/Control Room Operator Name Role Phone Caitlyn Bowie MD Primary Care Provider +1- [phone] Encounter Details Date Type Department Care Team (Late st Contact Info) Description 12/29/2021 Telephone [facility] at [address] - [address] [address] Ronald Mills MD [address] [place] [address] Social History Tobacco Use Types Packs/Day [...] not sure where the blood's coming from. [phone] documented in this encounter Plan of Treatment Upcoming Encounters Date Type Department Care Team (Late st Contact Info) Description 10/31/2024 1:00 PM EDT Telemedicine [facility] 240 [facility] Building [address] [place] [address] Ronald Mills MD 240 [facility] A[address] [place] [address] documented as of this encounter Visit Diagnoses Not on filedocumented in this encounter Additional Health Concerns Infection Onset Date Last Indicated Resolved Time COVID-19 03/05/2022 03/05/2022 03/15/2022 7:18 PM EDT Assessment Noted Time PHQ-9 Depression Total Score: 2 11/07/19 19 2:06 PM EDT documented as of this encounter Care Teams Crew Leader/Control Room Operator Relationship Specialty Start Date End Date Caitlyn Bowie MD [address] [address] PCP - General Internal Medicine 05/06/21 documented as of this encounter
--- OUTSIDE RECORDS SUMMARY | 2024-08-08 15:56 | XMS_ITS | Encounter Summary ---
Author Organization [facility] and [facility] Address [address] [place] [address] Care Team Providers Care Dukey Rider Name Role Phone Caitlyn Bowie MD Primary Care Provider +1- [phone] Encounter Details Date Type Department Care Team (Late st Contact Info) Description 04/19/2022 Scanned Document INTERFACE DEFAULT [address] [place] [address] System, Provider Not In Social History Tobacco [...] [facility] 240 [facility] Building [address] [place] [address] Ronald Mills MD [address] [place] [address] [address] [place] [address] documented as of this encounter Procedures [...] documented as of this encounter Care Teams Dukey Rider Relationship Specialty Start Date End Date Caitlyn Bowie MD [address] [address] PCP - General Internal Medicine 05/06/21 documented as of this encounter
--- OUTSIDE RECORDS SUMMARY | 2024-08-08 15:56 | XMS_ITS | Encounter Summary ---
Author Organization [facility] Address [address] [place] [address] Care Team Providers Care Pad Extraction Tender Name Role Phone Pcp, No Primary Care Provider Brennan Mario MD Primary Care Provider [phone] Caitlyn Bowie MD Primary Care Provider +1- [phone] Encounter Details Date Type Department Care Team (Late st Contact Info) Description 01/04/2022 Scanned Document [facility] Neurology Ophthalmology [address] [address] Yary Whitten DO [address] [place] [address] Social History Tobacco Use Types Packs/Day [...] on filedocumented in this encounter Care Teams Pad Extraction Tender Relationship Specialty Start Date End Date Pcp, No PCP - General General Medicine 10/04/21 07/18/22 Brennan Burnett MD [address] [place] [address] PCP - General 07/19/22 03/19/23 Caitlyn Bowie MD [address] [place] [address] PCP - General Internal Medicine 03/20/23 documented as of this encounter
--- OUTSIDE RECORDS SUMMARY | 2024-08-08 15:56 | XMS_ITS | Encounter Summary ---
Author Organization [facility] and [facility] Address [address] [place] [address] Care Team Providers Care Paleontological Helper Name Role Phone Caitlyn Bowie MD Primary Care Provider +1- [phone] Encounter Details Date Type Department Care Team (Late st Contact Info) Description 04/14/2022 Scanned Document INTERFACE DEFAULT [address] [place] [address] System, Provider Not In Social History Tobacco [...] [facility] 240 [facility] Building [address] [place] [address] Ronald Mills MD [address] [place] [address] [address] [place] [address] documented as of this encounter Visit Diagnoses Not on filedocumented in this encounter Additional Health Concerns Assessment Noted Time PHQ-9 Depression Total Score: 2 11/07/19 19 2:06 PM EDT documented as of this encounter Care Teams Paleontological Helper Relationship Specialty Start Date End Date Caitlyn Bowie MD [address] [address] PCP - General Internal Medicine 05/06/21 documented as of this encounter
--- OUTSIDE RECORDS SUMMARY | 2024-08-08 15:56 | XMS_ITS | Encounter Summary ---
Author Organization [facility] and [facility] Address [address] [place] [address] Care Team Providers Care Chief Yeoman Name Role Phone Caitlyn Bowie MD Primary Care Provider +1- [phone] Encounter Details Date Type Department Care Team (Late st Contact Info) Description 09/24/2015 Scanned Document Dig[facility] at 40 [facility] 40 [facility] [address] [place] [address] Kevin Espinoza MD [address] [place] [address] Social History Tobacco Use Types Packs/Day [...] 1:00 PM EDT Telemedicine Cancer Center at [address] [place], [place] [address] Ronald Mills MD [address] [place] [address] [address] [place] [address] documented as of this encounter Visit Diagnoses Not on filedocumented in this encounter Additional Health Concerns Infection Onset Date Last Indicated Resolved Time COVID-19 03/05/2022 03/05/2022 03/15/2022 7:18 PM EDT documented as of this encounter Care Teams Chief Yeoman Relationship Specialty Start Date End Date Caitlyn Bowie MD 3400 [facility] 1 [place] [address] PCP - General Internal Medicine 05/06/21 Henry Kelly MD Pulmonary Department 175 [facility], [address] [place] [address] Physician Pulmonary Disease 09/06/17 06/22/20 documented as of this encounter
--- OUTSIDE RECORDS SUMMARY | 2024-08-08 15:56 | XMS_ITS | Encounter Summary ---
Author Organization [facility] and [facility] Address [address] [place] [address] Care Team Providers Care Human Resources Executive Assistant Name Role Phone Caitlyn Bowie MD Primary Care Provider +1- [phone] Encounter Details Date Type Department Care Team (Late st Contact Info) Description 01/09/2019 Scanned Document [facility] Health Information Management [address] [place] [address] External, Provider Social History Tobacco Use Types [...] [facility] 240 [facility] Building [address] [place] [address] Ronald Mills MD [address] [place] [address] [address] [place] [address] documented as of this encounter [...] of this encounter Care Teams Human Resources Executive Assistant Relationship Specialty Start Date End Date Caitlyn Bowie MD 3400 [facility] 1 [place] [address] PCP - General Internal Medicine 05/06/21 Henry Kelly MD Pulmonary Department 175 [facility], [address] [place] [address] Physician Pulmonary Disease 09/06/17 06/22/20 documented as of this encounter
--- OUTSIDE RECORDS SUMMARY | 2024-08-08 15:56 | XMS_ITS | Encounter Summary ---
Author Organization [facility] and [facility] Address [address] [place] [address] Care Team Providers Care Freight Conductor Name Role Phone Caitlyn Bowie MD Primary Care Provider +1- [phone] Encounter Details Date Type Department Care Team (Late st Contact Info) Description 05/04/2022 Scanned Document INTERFACE DEFAULT [address] [place] [address] System, Provider Not In Social History Tobacco [...] [facility] 240 [facility] Building [address] [place] [address] Ronald Mills MD [address] [place] [address] [address] [place] [address] documented as of this encounter Visit Diagnoses Not on filedocumented in this encounter Additional Health Concerns Assessment Noted Time PHQ-9 Depression Total Score: 2 11/07/19 19 2:06 PM EDT documented as of this encounter Care Teams Freight Conductor Relationship Specialty Start Date End Date Caitlyn Bowie MD [address] [address] PCP - General Internal Medicine 05/06/21 documented as of this encounter
--- OUTSIDE RECORDS SUMMARY | 2024-08-08 15:56 | XMS_ITS | Encounter Summary ---
Author Organization [facility] and [facility] Address [address] [place] [address] Care Team Providers Care Pension Agent Name Role Phone Caitlyn Bowie MD Primary Care Provider +1- [phone] Encounter Details Date Type Department Care Team (Late st Contact Info) Description 04/22/2022 Scanned Document INTERFACE DEFAULT [address] [place] [address] System, Provider Not In Social History Tobacco [...] [facility] 240 [facility] Building [address] [place], [place] [phone] Ronald Mills MD [address] [place] [address] [address] [place] [address] documented as of this encounter [...] documented as of this encounter Care Teams Pension Agent Relationship Specialty Start Date End Date Caitlyn Bowie MD [address] [address] PCP - General Internal Medicine 05/06/21 documented as of this encounter
--- OUTSIDE RECORDS SUMMARY | 2024-08-08 15:56 | XMS_ITS | Encounter Summary ---
Author Organization [facility] and [facility] Address [address] [place] [address] Care Team Providers Care Natural Resources Professor Name Role Phone Caitlyn Bowie MD Primary Care Provider +1- [phone] Encounter Details Date Type Department Care Team (Latest Contact Info) Description 12/25/2015 Transcribed Orders [facility] Draw Station [address] [facility] [place] [address] Osmel Briscoe MD Other abnormality of red [...] 1:00 PM EDT Telemedicine Cancer Center at [address] [place], [place] [phone] Ronald Mills MD [address] [place] [address] [address] [place] [address] documented as of this encounter Results * Free kappa lambda with ratio, serum ( GH Q YH) (12/25/2015 10:09 AM EDT) Ig [place] Free Light Chain 1.84 0.33 - 1.94 mg/dL [facility] Ig Lambda Free Light Chain 1.96 0.57 - 2.63 mg/dL [facility] [place]/Lambda FLC Ratio 0.94 0.26 - 1.65 [facility] Blood specimen (specimen) 12/25/2015 10:09 AM EDT Result [facility] Osmel Briscoe MD LAB BLOOD ORDERABLES Final R esult Performing Organization Address [facility] Co de Phone Number [facility] [address] [place] [address] * Immunofixation, serum ( L Q YH) (12/25/2015 10:09 AM EDT) [facility] Immunofixation Electrophoresis Gel See below See Interp. [facility] Comment: INTERPRETATION: Normal immunofixation electrophoresis. No evidence of a serum monoclonal component. SIGNED BY:Keyur KAYE MD ON 12/29/2015 14:56:04 INTERPRETATION REVIEW : I have reviewed these results and agree with this interpretation. Blood specimen (specimen) 12/25/2015 10:09 AM EDT Osmel Briscoe MD LAB BLOOD ORDERABLES Final R esult Performing Organization Address [facility] Co de Phone Number [facility] [address] [place] [phone] * (ABNORMAL) Protein electrophoresis, serum ( GH L YH) (12/25/2015 10:09 AM EDT) Albumin Electrophoresis 3.45(L) 3.50 - 4.70 g/dL [facility] Ttgmo-2-Nxrdikga 0.16 0.10 - 0.30 g/dL [facility] Bisik-8-Oebecxek 0.81 0.60 - 1.00 g/dL [facility] Beta Globulin 0.86 0.70 - 1.20 g/dL [facility] Gamma Globulin 0.92 0.70 - 1.50 g/dL [facility] SPEP Interpretation See below See Interp. [facility] Comment: INTERPRETATION: No discrete abnormal [...] ORDERABLES Final R esult Performing Organization Address [facility] Co de Phone Number [facility] [address] [place] [address] * Reticulocytes (GH L Q YH) (12/25/2015 10:09 AM EDT) Reticulocyte Count 2.1 0.6 - 2.7 % [facility] Blood specimen (specimen) 12/25/2015 10:09 AM EDT Osmel Briscoe MD LAB BLOOD ORDERABLES Final R esult Performing Organization Address [facility] Co de Phone Number [facility] [address] [place] [address] * (ABNORMAL) Sedimentation rate (ESR) (12/25/2015 10:09 AM EDT) Sed Rate 27(H) 0 - 20 mm/hr [facility] Blood specimen (specimen) 12/25/2015 10:09 AM EDT us Osmel Briscoe MD LAB BLOOD ORDERABLES Final R esult Performing Organization Address [facility] Co de Phone Number [facility] [address] [place] [address] * Ferritin (12/25/2015 10:09 AM EDT) Ferritin 68 9 - 120 ng/mL [facility] Blood specimen (specimen) 12/25/2015 10:09 AM EDT Osmel Briscoe MD LAB BLOOD ORDERABLES Final R esult Performing Organization Address [facility] Co de Phone Number [facility] [address] [place] [address] * Iron and TIBC (12/25/2015 10:09 AM EDT) Iron 110 50 - 170 ug/dL [facility] TIBC 290 250 - 450 ug/dL [facility] Iron Saturation 38 15 - 50 [facility] Blood specimen (specimen) 12/25/2015 10:09 AM EDT Osmel Briscoe MD LAB BLOOD ORDERABLES Final R esult Performing Organization Address [facility] Co de Phone Number [facility] [address] [place] [address] * Vitamin D 25 hydroxy (BH L YH) (12/25/2015 10:09 AM EDT) Vit D, 25-Hydroxy 43 20 - 50 ng/mL [facility] Comment: A serum 25(OH) vitamin [...] ORDERABLES Final R esult Performing Organization Address City/[facility]/ZIP Co de Phone Number [facility] [address] [place] [address] * TSH (BH L YH) (12/25/2015 10:09 AM EDT) TSH cancelled 0.3 - 4.2 uU/mL [facility] TSH 1.62 0.3 - 4.2 uU/mL [facility] Comment:This test is a third generation TSH assay. Blood specimen (specimen) 12/25/2015 10:09 AM EDT Osmel Briscoe MD LAB BLOOD ORDERABLES Final R esult Performing Organization Address City/[facility] Co de Phone Number [facility] [address] [place] [address] * (ABNORMAL) CBC and differential (12/25/2015 10:09 AM EDT) Pathologist [facility] CBC with Differential See Below [facility] WBC 9.9 4.0 - 10.0 x 1000/uL [facility] RBC 4.0 3.8 - 5.2 M/uL [facility] Hemoglobin 13.4 12.0 - 16.0 g/dL [facility] Hematocrit 41.0 37.0 - 47.0 % [facility] MCV 101(H) 78 - 94 fL [facility] MCH 33.2(H) 27.0 - 33.0 pg [facility] MCHC 32.8(L) 33.0 - 37.0 g/dL [facility] RDW 12.5 10.8 - 14.5 % [facility] Platelets 265 150 - 350 x 1000/uL [facility] MPV 7.2 6.0 - 10.0 fL [facility] Neutrophils 82(H) 38 - 71 % [facility] Lymphocytes 7(L) 14 - 46 % [facility] Monocytes 10 2 - 15 % [facility] Eosinophils 1 0 - 5 % [facility] Basophils 0 0 - 2 % [facility] ANC (Abs Neutrophil Count) 8.1 1.0 - 9.0 x 1000/uL [facility] Absolute Lymphocyte Count 0.7 0.6 - 4.6 x 1000/uL [facility] Blood specimen (specimen) ARM NEC / Unknown 12/25/2015 10:09 AM EDT us Osmel Briscoe MD LAB BLOOD ORDERABLES Final R esult [facility] [address] [place] [address] documented in this encounter Visit Diagnoses Diagnosis [...] documented as of this encounter Care Teams Natural Resources Professor Relationship Specialty Start Date End Date Caitlyn Bowie MD [address] [address] PCP - General Internal Medicine 05/06/21 Henry Kelly MD Pulmonary Department 175 [facility], [address] [place] [address] Physician Pulmonary Disease 09/06/17 06/22/20 documented as of this encounter
--- OUTSIDE RECORDS SUMMARY | 2024-08-08 15:56 | XMS_ITS | Encounter Summary ---
Author Organization [facility] and [facility] Address [address] [place] [address] Care Team Providers Care Die Turner Name Role Phone Caitlyn Bowie MD Primary Care Provider +1- [phone] Encounter Details Date Type Department Care Team (Late st Contact Info) Description 09/09/2015 Scanned Document [facility] Health Information Management [address] [place] [address] External, Provider Social History Tobacco Use Types [...] [facility] [address] [facility] [address] [place], [place] [address] Ronald Mills MD [address] [facility] [address] [place] [address] documented as of this encounter Procedures Procedure Name Priority Date/Time Associated Diagnosis Comments LAB SCAN Routine 09/09/2015 documented in this encounter Results * Lab Scan (09/09/2015) Blood specimen (specimen) us Provider External LAB BLOOD ORDERABLES Final Res ult Performing Organization Address City/State/[facility] Co de Phone Number [facility] documented in this encounter Visit Diagnoses Not on filedocumented in this encounter Additional Health Concerns Infection Onset Date Last Indicated Resolved Time COVID-19 03/05/2022 03/05/2022 03/15/2022 7:18 PM EDT documented as of this encounter Care Teams Die Turner Relationship Specialty Start Date End Date Caitlyn Bowie MD [address] [facility] 1 [place] [address] PCP - General Internal Medicine 05/06/21 Henry Kelly MD Pulmonary Department 175 [facility], [address] [place] [address] Physician Pulmonary Disease 09/06/17 06/22/20 documented as of this encounter
--- OUTSIDE RECORDS SUMMARY | 2024-08-08 15:56 | XMS_ITS | Encounter Summary ---
Author Organization [facility] and [facility] Address [address] [place] [address] Care Team Providers Care Operations Support Representative Name Role Phone Caitlyn Bowie MD Primary Care Provider +1- [phone] Encounter Details Date Type Department Care Team (Late st Contact Info) Description 05/02/2022 Scanned Document INTERFACE DEFAULT [address] [place] [address] System, Provider Not In Social History Tobacco [...] [facility] [address] [facility] [address] [place] [address] Ronald Mills MD [address] [place] [address] [address] [place] [address] documented as of this encounter [...] as of this encounter Care Teams Operations Support Representative Relationship Specialty Start Date End Date Caitlyn Bowie MD [address] [address] PCP - General Internal Medicine 05/06/21 documented as of this encounter
--- OUTSIDE RECORDS SUMMARY | 2024-08-08 15:56 | XMS_ITS | Encounter Summary ---
Author Organization [facility] and [facility] Address [address] [place] [address] Care Team Providers Care Steel Construction Worker Name Role Phone Caitlyn Bowie MD Primary Care Provider +1- [phone] Encounter Details Date Type Department Care Team (Late st Contact Info) Description 04/12/2022 Scanned Document INTERFACE DEFAULT [address] [place] [address] System, Provider Not In Social History Tobacco [...] [facility] [address] [facility] [address] [place] [address] Ronald Mills MD [address] [place] [address] [address] [place] [address] documented as of this encounter [...] documented as of this encounter Care Teams Steel Construction Worker Relationship Specialty Start Date End Date Caitlyn Bowie MD [address] [address] PCP - General Internal Medicine 05/06/21 documented as of this encounter
--- OUTSIDE RECORDS SUMMARY | 2024-08-08 15:56 | XMS_ITS | Encounter Summary ---
Author Organization [facility] and [facility] Address [address] [place] [address] Care Team Providers Care Salon Coordinator Name Role Phone Caitlyn Bowie MD Primary Care Provider +1- [phone] Encounter Details Date Type Department Care Team (Late st Contact Info) Description 04/25/2022 Scanned Document INTERFACE DEFAULT [address] [place] [address] System, Provider Not In Social History Tobacco [...] [facility] 240 [facility] [address] [place] [address] Ronald Mills MD [address] [place] [address] [address] [place] [address] documented as of this encounter Visit Diagnoses Not on filedocumented in this encounter Additional Health Concerns Assessment Noted Time PHQ-9 Depression Total Score: 2 11/07/19 19 2:06 PM EDT documented as of this encounter Care Teams Salon Coordinator Relationship Specialty Start Date End Date Caitlyn Bowie MD [address] [address] PCP - General Internal Medicine 05/06/21 documented as of this encounter
--- OUTSIDE RECORDS SUMMARY | 2024-08-08 15:56 | XMS_ITS | Encounter Summary ---
Author Organization [facility] and [facility] Address [address] [place] [address] Care Team Providers Care Compounding Assistant Name Role Phone Caitlyn Bowie MD Primary Care Provider +1- [phone] Encounter Details Date Type Department Care Team (Late st Contact Info) Description 04/11/2019 Scanned Document [facility] Health Information Management [address] [place] [address] External, Provider Social History Tobacco Use Types [...] Telemedicine Cancer Center at [facility] [address] [facility] [address] [place] [address] Ronald Mills MD [address] [place] [address] [address] [place] [address] documented as of this encounter [...] documented as of this encounter Care Teams Compounding Assistant Relationship Specialty Start Date End Date Caitlyn Bowie MD 3400 [facility] 1 [place] [address] PCP - General Internal Medicine 05/06/21 Henry Kelly MD Pulmonary Department 175 [facility], [address] [place] [address] Physician Pulmonary Disease 09/06/17 06/22/20 documented as of this encounter
--- OUTSIDE RECORDS SUMMARY | 2024-08-08 15:56 | XMS_ITS | Encounter Summary ---
Author Organization [facility] Address [address] [place] [address] Care Team Providers Care Information Systems Audit Manager Name Role Phone Caitlyn Bowie MD Primary Care Provider +1- [phone] Reason for Visit * Reason Comments Results Encounter Details Date Type Department Care Team (Late st Contact Info) Description 03/15/2022 Telephone [facility] at [address] [address] Ronald Mills MD [address] [place] [address] Results Social History Tobacco Use Types [...] [facility] [place] 240 [facility] Building [address] [place], [place] [phone] Ronald Mills MD 240 [facility] [address] [place] [phone] documented as of this encounter Visit Diagnoses Not on filedocumented in this encounter Additional Health Concerns Infection Onset Date Last Indicated Resolved Time COVID-19 03/05/2022 03/05/2022 03/15/2022 7:18 PM EDT Assessment Noted Time PHQ-9 Depression Total Score: 2 11/07/19 19 2:06 PM EDT documented as of this encounter Care Teams Information Systems Audit Manager Relationship Specialty Start Date End Date Caitlyn Bowie MD [address] [address] PCP - General Internal Medicine 05/06/21 documented as of this encounter
--- OUTSIDE RECORDS SUMMARY | 2024-08-08 15:56 | XMS_ITS | Encounter Summary ---
Author Organization [facility] and [facility] Address [address] [place] [address] Care Team Providers Care Mouse Breeder Name Role Phone Caitlyn Bowie MD Primary Care Provider +1- [phone] Encounter Details Date Type Department Care Team (Late st Contact Info) Description 09/09/2015 Scanned Document [facility] Health Information Management [address] [place] [address] External, Provider Social History Tobacco Use Types [...] [facility] 240 [facility] Building [address] [place], [place] [phone] Ronald Mills MD 240 [facility] [address] [place] [address] documented as of this encounter Procedures Procedure Name Priority Date/Time Associated Diagnosis Comments LAB SCAN Routine 09/09/2015 documented in this encounter Results * Lab Scan (09/09/2015) Blood specimen (specimen) us Provider External LAB BLOOD ORDERABLES Final Res ult [facility] documented in this encounter Visit Diagnoses Not on filedocumented in this encounter Additional Health Concerns Infection Onset Date Last Indicated Resolved Time COVID-19 03/05/2022 03/05/2022 03/15/2022 7:18 PM EDT documented as of this encounter Care Teams Mouse Breeder Relationship Specialty Start Date End Date Caitlyn Bowie MD 3400 [facility] 1 [place] [address] PCP - General Internal Medicine 05/06/21 Henry Kelly MD Pulmonary Department 175 [facility], [address] [place] [address] Physician Pulmonary Disease 09/06/17 06/22/20 documented as of this encounter
--- OUTSIDE RECORDS SUMMARY | 2024-08-08 15:56 | XMS_ITS | Encounter Summary ---
Author Organization [facility] and [facility] Address [address] [place] [address] Care Team Providers Care Metal Numerical Tool Programmer Name Role Phone Caitlyn Bowie MD Primary Care Provider +1- [phone] Encounter Details Date Type Department Care Team (Late st Contact Info) Description 05/10/2022 Scanned Document Cardiovascular Medicine at [address] [place] [phone] Norma Renee MD [address] [place] [phone] Social History Tobacco Use Types Packs/Day Years [...] PM EDT Telemedicine Cancer Center at [address] [place] [address] Ronald Mills MD [address] [place] [address] [address] [place] [address] documented as of this encounter Visit Diagnoses Not on filedocumented in this encounter Additional Health Concerns Assessment Noted Time PHQ-9 Depression Total Score: 2 11/07/19 19 2:06 PM EDT documented as of this encounter Care Teams Metal Numerical Tool Programmer Relationship Specialty Start Date End Date Caitlyn Bowie MD [address] [address] PCP - General Internal Medicine 05/06/21 documented as of this encounter
--- OUTSIDE RECORDS SUMMARY | 2024-08-08 15:56 | XMS_ITS | Encounter Summary ---
Author Organization [facility] and [facility] Address [address] [place] [address] Care Team Providers Care Hospice Aide Name Role Phone Caitlyn Bowie MD Primary Care Provider +1- [phone] Encounter Details Date Type Department Care Team (Late st Contact Info) Description 03/12/2019 Scanned Document [facility] Health Information Management [address] [place] [address] External, Provider Social History Tobacco Use Types [...] [facility] 240 [facility] [address] [place] [address] Ronald Mills MD [address] [place] [address] [address] [place] [address] documented as of this encounter [...] documented as of this encounter Care Teams Hospice Aide Relationship Specialty Start Date End Date Caitlyn Bowie MD 3400 [facility] 1 [place] [address] PCP - General Internal Medicine 05/06/21 Henry Kelly MD Pulmonary Department 175 [facility], [address] [place] [address] Physician Pulmonary Disease 09/06/17 06/22/20 documented as of this encounter
--- OUTSIDE RECORDS SUMMARY | 2024-08-08 15:56 | XMS_ITS | Encounter Summary ---
Author Organization [facility] and [facility] Address [address] [place] [address] Care Team Providers Care Express Manager Name Role Phone Caitlyn Bowie MD Primary Care Provider +1- [phone] Encounter Details Date Type Department Care Team (Late st Contact Info) Description 01/26/2019 Scanned Document [facility] Health Information Management [address] [place] [address] External, Provider Social History Tobacco Use Types [...] [facility] Center at [facility] 240 [facility] [address] [place] [address] Ronald Mills MD [address] [place] [address] [address] [place] [address] documented as of this encounter [...] documented as of this encounter Care Teams Express Manager Relationship Specialty Start Date End Date Caitlyn Bowie MD 3400 [facility] 1 [place] [address] PCP - General Internal Medicine 05/06/21 Henry Kelly MD Pulmonary Department 175 [facility], [address] [place] [address] Physician Pulmonary Disease 09/06/17 06/22/20 documented as of this encounter
--- OUTSIDE RECORDS SUMMARY | 2024-08-08 15:56 | XMS_ITS | Encounter Summary ---
Author Organization [facility] and [facility] Address [address] [place] [address] Care Team Providers Care Credit Rating Inspector Name Role Phone Caitlyn Bowie MD Primary Care Provider +1- [phone] Encounter Details Date Type Department Care Team (Late st Contact Info) Description 02/06/2019 Scanned Document [facility] Health Information Management [address] [place] [phone] External, Provider Social History Tobacco Use Types [...] [facility] 240 [facility] [address] [place] [address] Ronald Mills MD [address] [place] [address] [address] [place] [address] documented as of this encounter [...] documented as of this encounter Care Teams Credit Rating Inspector Relationship Specialty Start Date End Date Caitlyn Bowie MD 3400 [facility] 1 [place] [address] PCP - General Internal Medicine 05/06/21 Henry Kelly MD Pulmonary Department 175 [facility], [address] [place] [address] Physician Pulmonary Disease 09/06/17 06/22/20 documented as of this encounter
--- OUTSIDE RECORDS SUMMARY | 2024-08-08 15:56 | XMS_ITS | Encounter Summary ---
Author Organization [facility] and [facility] Address [address] [place] [address] Care Team Providers Care Ice Crusher Name Role Phone Caitlyn Bowie MD Primary Care Provider +1- [phone] Encounter Details Date Type Department Care Team (Late st Contact Info) Description 12/06/2018 Scanned Document [facility] Health Information Management [address] [place] [address] External, Provider Social History Tobacco Use Types [...] [facility] 240 [facility] Building [address] [place], [place] [phone] Ronald Mills MD 240 [facility] [address] [place] [address] documented as of this encounter [...] documented as of this encounter Care Teams Ice Crusher Relationship Specialty Start Date End Date Caitlyn Bowie MD 3400 [facility] 1 [place] [address] PCP - General Internal Medicine 05/06/21 Henry Kelly MD Pulmonary Department 175 [facility], [address] [place] [address] Physician Pulmonary Disease 09/06/17 06/22/20 documented as of this encounter
--- OUTSIDE RECORDS SUMMARY | 2024-08-08 15:56 | XMS_ITS | Encounter Summary ---
Author Organization [facility] Address [address] [place] [address] Care Team Providers Care Machine Maintenance Technician Name Role Phone Caitlyn Bowie MD Primary Care Provider +1- [phone] Encounter Details Date Type Department Care Team (Late st Contact Info) Description 01/17/2019 Scanned Document [facility] Health Information Management [address] [place] [address] External, Provider Social History Tobacco Use Types [...] [facility] 240 [facility] Building [address] [place] [address] Ronald Mills MD [address] [place] [address] [address] [place] [address] documented as of this encounter [...] documented as of this encounter Care Teams Machine Maintenance Technician Relationship Specialty Start Date End Date Caitlyn Bowie MD 3400 [facility] 1 [place] [address] PCP - General Internal Medicine 05/06/21 Henry Kelly MD Pulmonary Department 175 [facility], [address] [place] [address] Physician Pulmonary Disease 09/06/17 06/22/20 documented as of this encounter
--- OUTSIDE RECORDS SUMMARY | 2024-08-08 15:56 | XMS_ITS | Encounter Summary ---
Author Organization [facility] Address [address] [place] [address] Care Team Providers Care Carton Stenciler Name Role Phone Caitlyn Bowie MD Primary Care Provider +1- [phone] Encounter Details Date Type Department Care Team (Late st Contact Info) Description 01/08/2019 Scanned Document [facility] Health Information Management [address] [place] [address] External, Provider Social History Tobacco Use Types [...] [facility] 240 [facility] Building [address] [place] [address] Ronald Mills MD [address] [place] [address] [address] [place] [address] documented as of this encounter [...] as of this encounter Care Teams Carton Stenciler Relationship Specialty Start Date End Date Caitlyn Bowie MD 3400 [facility] 1 [place] [address] PCP - General Internal Medicine 05/06/21 Henry Kelly MD Pulmonary Department 175 [facility], [address] [place] [address] Physician Pulmonary Disease 09/06/17 06/22/20 documented as of this encounter
--- OUTSIDE RECORDS SUMMARY | 2024-08-08 15:56 | XMS_ITS | Encounter Summary ---
Author Organization [facility] Address [address] [place] [address] Care Team Providers Care Peeler Operator Name Role Phone Caitlyn Bowie MD Primary Care Provider +1- [phone] Encounter Details Date Type Department Care Team (Late st Contact Info) Description 04/16/2022 Scanned Document INTERFACE DEFAULT [address] [place] [address] System, Provider Not In Social History Tobacco [...] [facility] 240 [facility] Building [address] [place], [place] [phone] Ronald Mills MD [address] [place] [address] [address] [place] [address] documented as of this encounter [...] documented as of this encounter Care Teams Peeler Operator Relationship Specialty Start Date End Date Caitlyn Bowie MD [address] [address] PCP - General Internal Medicine 05/06/21 documented as of this encounter
--- OUTSIDE RECORDS SUMMARY | 2024-08-08 15:56 | XMS_ITS | Encounter Summary ---
Author Organization [facility] and [facility] Address [address] [place] [address] Care Team Providers Care Library Customer Service Clerk Name Role Phone Caitlyn Bowie MD Primary Care Provider +1- [phone] Encounter Details Date Type Department Care Team (Late st Contact Info) Description 02/08/2016 Scanned Document [facility] Health Information Management [address] [place] [address] External, Provider Social History Tobacco Use Types [...] [facility] 240 [facility] Building [address] [place], [place] [phone] Ronald Mills MD 240 [facility] [address] [place] [address] documented as of this encounter Visit Diagnoses Not on filedocumented in this encounter Additional Health Concerns Infection Onset Date Last Indicated Resolved Time COVID-19 03/05/2022 03/05/2022 03/15/2022 7:18 PM EDT documented as of this encounter Care Teams Library Customer Service Clerk Relationship Specialty Start Date End Date Caitlyn Bowie MD 3400 [facility] 1 [place] [address] PCP - General Internal Medicine 05/06/21 Henry Kelly MD Pulmonary Department 175 [facility], [address] [place] [address] Physician Pulmonary Disease 09/06/17 06/22/20 documented as of this encounter
--- OUTSIDE RECORDS SUMMARY | 2024-08-08 15:56 | XMS_ITS | Encounter Summary ---
Author Organization [facility] and [facility] Address [address] [place] [address] Care Team Providers Care Hydroelectric Operator Name Role Phone Caitlyn Bowie MD Primary Care Provider +1- [phone] Encounter Details Date Type Department Care Team (Late st Contact Info) Description 04/28/2022 Scanned Document INTERFACE DEFAULT [address] [place] [address] System, Provider Not In Social History Tobacco [...] [facility] 240 [facility] Building [address] [place], [place] [address] Ronald Mills MD [address] [place] [address] [address] [place] [address] documented as of [...] documented as of this encounter Care Teams Hydroelectric Operator Relationship Specialty Start Date End Date Caitlyn Bowie MD [facility] [address] [address] PCP - General Internal Medicine 05/06/21 documented as of this encounter
--- OUTSIDE RECORDS SUMMARY | 2024-08-08 15:56 | XMS_ITS | Encounter Summary ---
Author Organization [facility] and [facility] Address [address] [place] [address] Care Team Providers Care Head Start Assistant Teacher Name Role Phone Caitlyn Bowie MD Primary Care Provider +1- [phone] Encounter Details Date Type Department Care Team (Late st Contact Info) Description 09/28/2015 Scanned Document [facility] Health Information Management [address] [place] [address] External, Provider Social History Tobacco Use Types [...] [facility] 240 [facility] Building [address] [place], [place] [address] Ronald Mills MD 240 [facility] Max [address] [place] [address] documented as of this encounter Procedures Procedure Name Priority Date/Time Associated Diagnosis Comments LAB SCAN Routine 09/09/2015 documented in this encounter Results * Lab Scan (09/09/2015) Blood specimen (specimen) us Provider External LAB BLOOD ORDERABLES Final Res ult [facility] documented in this encounter Visit Diagnoses Not on filedocumented in this encounter Additional Health Concerns Infection Onset Date Last Indicated Resolved Time COVID-19 03/05/2022 03/05/2022 03/15/2022 7:18 PM EDT documented as of this encounter Care Teams Head Start Assistant Teacher Relationship Specialty Start Date End Date Caitlyn Bowie MD 3400 [facility] 1 [place] [address] PCP - General Internal Medicine 05/06/21 Henry Kelly MD Pulmonary Department 175 [facility], [address] [place] [address] Physician Pulmonary Disease 09/06/17 06/22/20 documented as of this encounter
--- OUTSIDE RECORDS SUMMARY | 2024-08-08 15:56 | XMS_ITS | Encounter Summary ---
Author Organization [facility] and [facility] Address [address] [place] [address] Care Team Providers Care Drill Runner Name Role Phone Caitlyn Bowie MD Primary Care Provider +1- [phone] Encounter Details Date Type Department Care Team (Late st Contact Info) Description 10/23/2018 Scanned Document [facility] Health Information Management [address] [place] [address] External, Provider Social History Tobacco Use Types [...] [facility] [place] [facility] 240 [facility] Building [address] [place], [place] [address] Ronald Mills MD 240 [facility] [address]1 [place] [address] documented as of this encounter Visit Diagnoses Not on filedocumented in this encounter Additional Health Concerns Infection Onset Date Last Indicated Resolved Time COVID-19 03/05/2022 03/05/2022 03/15/2022 7:18 PM EDT documented as of this encounter Care Teams Drill Runner Relationship Specialty Start Date End Date Caitlyn Bowie MD 3400 [facility] 1 [place] [address] PCP - General Internal Medicine 05/06/21 Henry Kelly MD Pulmonary Department 175 [facility], [address] [place] [address] Physician Pulmonary Disease 09/06/17 06/22/20 documented as of this encounter
--- OUTSIDE RECORDS SUMMARY | 2024-08-08 15:56 | XMS_ITS | Encounter Summary ---
Author Organization [facility] and [facility] Address [address] [place] [address] Care Team Providers Care Rig Mechanic Name Role Phone Caitlyn Bowie MD Primary Care Provider +1- [phone] Encounter Details Date Type Department Care Team (Late st Contact Info) Description 12/31/2015 Scanned Document [facility] [address] [place] [address] External, Provider Social History Tobacco Use Types [...] [facility] 240 [facility] Building [address] [place], [place] [address] Ronald Mills MD [address] [place] [address] [address] [place] [address] documented as of this encounter Procedures Procedure Name Priority Date/Time Associated Diagnosis Comments LAB SCAN Routine 12/31/2015 documented in this encounter Results * Lab Scan (12/31/2015) Blood specimen (specimen) us Provider External LAB BLOOD ORDERABLES Final Res ult Performing Organization Address City/State/[facility] Co de Phone Number [facility] documented in this encounter Visit Diagnoses Not on filedocumented in this encounter Additional Health Concerns Infection Onset Date Last Indicated Resolved Time COVID-19 03/05/2022 03/05/2022 03/15/2022 7:18 PM EDT documented as of this encounter Care Teams Rig Mechanic Relationship Specialty Start Date End Date Caitlyn Bowie MD 3400 [facility] 1 [place] [address] PCP - General Internal Medicine 05/06/21 Henry Kelly MD Pulmonary Department 175 [facility], [address] [place] [address] Physician Pulmonary Disease 09/06/17 06/22/20 documented as of this encounter
--- OUTSIDE RECORDS SUMMARY | 2024-08-08 15:56 | XMS_ITS | Encounter Summary ---
Author Organization [facility] Address [address] [place] [address] Care Team Providers Care Remote Control Assembler Name Role Phone Caitlyn Bowie MD Primary Care Provider +1- [phone] Encounter Details Date Type Department Care Team (Late st Contact Info) Description 01/28/2019 Scanned Document Cardiovascular Medicine at [address] [place] [address] Cristian Arreguin MBBS [address] [place] [address] Social History Tobacco Use Types [...] 1:00 PM EDT Telemedicine [facility] at [address] [place] [address] Ronald Mills MD [address] [place] [address] [address] [place] [address] documented as of this encounter Visit Diagnoses Not on filedocumented in this encounter Additional Health Concerns Infection Onset Date Last Indicated Resolved Time COVID-19 03/05/2022 03/05/2022 03/15/2022 7:18 PM EDT Assessment Noted Time PHQ-9 Depression Total Score: 2 11/07/19 19 2:06 PM EDT documented as of this encounter Care Teams Remote Control Assembler Relationship Specialty Start Date End Date Caitlyn Bowie MD 3400 [facility] 1 [place] [address] PCP - General Internal Medicine 05/06/21 Henry Kelly MD Pulmonary Department [address] [place] [address], [address] [place] [address] Physician Pulmonary Disease 09/06/17 06/22/20 documented as of this encounter
--- OUTSIDE RECORDS SUMMARY | 2024-08-08 15:56 | XMS_ITS | Encounter Summary ---
Author Organization [facility] and [facility] Address [address] [place] [address] Care Team Providers Care General Operations Agent Name Role Phone Caitlyn Bowie MD Primary Care Provider +1- [phone] Encounter Details Date Type Department Care Team (Late st Contact Info) Description 08/28/2015 Scanned Document [facility] Health Information Management [address] [place] [phone] External, Provider Social History Tobacco Use Types [...] [facility] 240 [facility] Building [address] [place], [place] [phone] Ronald Mills MD 240 [facility] A1 [place] [address] documented as of this encounter Visit Diagnoses Not on filedocumented in this encounter Additional Health Concerns Infection Onset Date Last Indicated Resolved Time COVID-19 03/05/2022 03/05/2022 03/15/2022 7:18 PM EDT documented as of this encounter Care Teams General Operations Agent Relationship Specialty Start Date End Date Caitlyn Bowie MD 3400 [facility] 1 [place] [address] PCP - General Internal Medicine 05/06/21 Henry Kelly MD Pulmonary Department 175 [facility], [address] [place] [address] Physician Pulmonary Disease 09/06/17 06/22/20 documented as of this encounter
--- OUTSIDE RECORDS SUMMARY | 2024-08-08 15:56 | XMS_ITS | Encounter Summary ---
Author Organization [facility] Address [address] [place] [address] Care Team Providers Care Sampler Tester Name Role Phone Caitlyn Bowie MD Primary Care Provider +1- [phone] Encounter Details Date Type Department Care Team (Late st Contact Info) Description 04/13/2022 Scanned Document INTERFACE DEFAULT [address] [place] [address] System, Provider Not In Social History Tobacco [...] [facility] Building [address] [place], [place] [address] Ronald Mills MD [address] [place] [address] [address] [place] [address] documented as of this encounter [...] documented as of this encounter Care Teams Sampler Tester Relationship Specialty Start Date End Date Caitlyn Bowie MD [address] [address] PCP - General Internal Medicine 05/06/21 documented as of this encounter
--- OUTSIDE RECORDS SUMMARY | 2024-08-08 15:56 | XMS_ITS | Encounter Summary ---
Author Organization [facility] Address [address] [place] [address] Care Team Providers Care Gang Bore Operator Name Role Phone Caitlyn Bowie MD Primary Care Provider +1- [phone] Encounter Details Date Type Department Care Team (Late st Contact Info) Description 01/28/2019 Scanned Document [facility] Health Information Management [address] [place] [address] External, Provider Social History Tobacco Use Types [...] [facility] 240 [facility] Building [address] [place] [address] Ronald Mills MD [address] [place] [address] [address] [place] [address] documented as of this encounter Visit Diagnoses Not on filedocumented in this encounter Additional Health Concerns Infection Onset Date Last Indicated Resolved Time COVID-19 03/05/2022 03/05/2022 03/15/2022 7:18 PM EDT Assessment Noted Time PHQ-9 Depression Total Score: 2 11/07/19 19 2:06 PM EDT documented as of this encounter Care Teams Gang Bore Operator Relationship Specialty Start Date End Date Caitlyn Bowie MD 3400 [facility] 1 [place] [address] PCP - General Internal Medicine 05/06/21 Henry Kelly MD Pulmonary Department 175 [facility], [address] [place] [address] Physician Pulmonary Disease 09/06/17 06/22/20 documented as of this encounter
--- OUTSIDE RECORDS SUMMARY | 2024-08-08 15:56 | XMS_ITS | Encounter Summary ---
Author Organization [facility] Address [address] [place] [address] Care Team Providers Care Research Coordinator Name Role Phone Caitlyn Bowie MD Primary Care Provider +1- [phone] Encounter Details Date Type Department Care Team (Late st Contact Info) Description 12/04/2018 Scanned Document [facility] Health Information Management [address] [place] [address] External, Provider Social History Tobacco Use Types [...] [facility] 240 [facility] Building [address] [place], [place] [address] Ronald Mills MD 240 [facility] A1 [place] [address] documented as of this encounter Visit Diagnoses Not on filedocumented in this encounter Additional Health Concerns Infection Onset Date Last Indicated Resolved Time COVID-19 03/05/2022 03/05/2022 03/15/2022 7:18 PM EDT Assessment Noted Time PHQ-9 Depression Total Score: 2 11/07/19 19 2:06 PM EDT documented as of this encounter Care Teams Research Coordinator Relationship Specialty Start Date End Date Caitlyn Bowie MD 3400 [facility] Max 1 [place] [address] PCP - General Internal Medicine 05/06/21 Henry Kelly MD Pulmonary Department 175 [facility], [address] [place] [address] Physician Pulmonary Disease 09/06/17 06/22/20 documented as of this encounter
--- OUTSIDE RECORDS SUMMARY | 2024-08-08 15:56 | XMS_ITS | Encounter Summary ---
Author Organization [facility] Address [address] [place] [address] Care Team Providers Care Geospatial Scientist Name Role Phone Caitlny Bowie MD Primary Care Provider +1- [phone] Encounter Details Date Type Department Care Team (Late st Contact Info) Description 01/30/2019 Scanned Document [facility] Health Information Management [address] [place] [address] External, Provider Social History Tobacco Use Types [...] [facility] 240 [facility] Building [address] [place] [address] Ronald Mills MD [address] [place] [address] [address] [place] [address] documented as of this encounter [...] documented as of this encounter Care Teams Geospatial Scientist Relationship Specialty Start Date End Date Caitlyn Bowie MD 3400 [facility] 1 [place] [address] PCP - General Internal Medicine 05/06/21 Henry Kelly MD Pulmonary Department 175 [facility], [address] [place] [address] Physician Pulmonary Disease 09/06/17 06/22/20 documented as of this encounter
--- OUTSIDE RECORDS SUMMARY | 2024-08-08 15:57 | XMS_ITS | Encounter Summary ---
Author Organization [facility] Address [address] [place] [address] Care Team Providers Care Restrictive Preparation Operator Name Role Phone Caitlyn Bowie MD Primary Care Provider +1- [phone] Encounter Details Date Type Department Care Team (Late st Contact Info) Description 04/23/2024 Scanned Document INTERFACE DEFAULT [address] [place] [address] System, Provider Not In Social History Tobacco [...] [facility] 240 [facility] Building [address] [place], [place] [address] Ronald Mills MD [address] [place] [address] [address] [place] [address] documented as of this encounter [...] End Date Caitlyn Bowie MD [address] [address] PCP - General Internal Medicine 05/06/21 documented as of this encounter
--- OUTSIDE RECORDS SUMMARY | 2024-08-08 15:57 | XMS_ITS | Encounter Summary ---
Author Organization [facility] Address [address] [place] [address] Care Team Providers Care Insurance Defense Attorney Name Role Phone Caitlyn Bowie MD Primary Care Provider +1- [phone] Encounter Details Date Type Department Care Team (Late st Contact Info) Description 04/08/2024 Scanned Document INTERFACE DEFAULT [address] [place] [address] System, Provider Not In Social History Tobacco [...] [facility] 240 [facility] Building [address] [place], [place] [address] Ronald Mills MD [address] [place] [address] [address] [place] [address] documented as of this encounter [...] documented as of this encounter Care Teams Insurance Defense Attorney Relationship Specialty Start Date End Date Caitlyn Bowie MD [address] [address] PCP - General Internal Medicine 05/06/21 documented as of this encounter
--- OUTSIDE RECORDS SUMMARY | 2024-08-08 15:57 | XMS_ITS | Encounter Summary ---
Author Organization [facility] Address [address] [place] [address] Care Team Providers Care Etl Data Architect Name Role Phone Caitlyn Bowie MD Primary Care Provider +1- [phone] Encounter Details Date Type Department Care Team (Late st Contact Info) Description 12/16/2016 Scanned Document [facility] Health Information Management [address] [place] [address] External, Provider Social History Tobacco Use Types [...] [facility]icine [facility] 240 [facility] Building [address] [place], [place] [phone] Ronald Mills MD 240 [facility] Max [address] [place] [address] documented as of this encounter [...] documented as of this encounter Care Teams Etl Data Architect Relationship Specialty Start Date End Date Caitlyn Bowie MD 3400 [facility] 1 [place] [address] PCP - General Internal Medicine 05/06/21 Henry Kelly MD Pulmonary Department 175 [facility], [address] [place] [address] Physician Pulmonary Disease 09/06/17 06/22/20 documented as of this encounter
--- OUTSIDE RECORDS SUMMARY | 2024-08-08 15:57 | XMS_ITS | Encounter Summary ---
Author Organization [facility] and [facility] Address [address] [place] [address] Care Team Providers Care Litigation Associate Name Role Phone Caitlyn Bowie MD Primary Care Provider +1- [phone] Encounter Details Date Type Department Care Team (Late st Contact Info) Description 12/14/2016 Scanned Document [facility] Health Information Management [address] [place] [address] External, Provider Social History Tobacco Use Types [...] [facility] 240 [facility] Building [address] [place], [place] [address] Ronald Mills MD 240 [facility] [address] [place] [address] documented as of this encounter [...] documented as of this encounter Care Teams Litigation Associate Relationship Specialty Start Date End Date Caitlyn Bowie MD 3400 [facility] 1 [place] [address] PCP - General Internal Medicine 05/06/21 Henry Kelly MD Pulmonary Department 175 [facility], [address] [place] [address] Physician Pulmonary Disease 09/06/17 06/22/20 documented as of this encounter
--- OUTSIDE RECORDS SUMMARY | 2024-08-08 15:57 | XMS_ITS | Encounter Summary ---
Author Organization [facility] and [facility] Address [address] [place] [address] Care Team Providers Care Freight Conductor Name Role Phone Caitlyn Bowie MD Primary Care Provider +1- [phone] Encounter Details Date Type Department Care Team (Late st Contact Info) Description 06/17/2016 Scanned Document [facility] Health Information Management [address] [place] [address] External, Provider Social History Tobacco Use Types [...] at [facility] 240 [facility] [address] [place], [place] [phone] Ronald Mills MD 240 [facility] A1 [place] [address] documented as of this encounter Visit Diagnoses Not on filedocumented in this encounter Additional Health Concerns Infection Onset Date Last Indicated Resolved Time COVID-19 03/05/2022 03/05/2022 03/15/2022 7:18 PM EDT documented as of this encounter Care Teams Freight Conductor Relationship Specialty Start Date End Date Caitlyn Bowie MD 3400 [facility] 1 [place] [address] PCP - General Internal Medicine 05/06/21 Henry Kelly MD Pulmonary Department 175 [facility], [address] [place] [address] Physician Pulmonary Disease 09/06/17 06/22/20 documented as of this encounter
--- OUTSIDE RECORDS SUMMARY | 2024-08-08 15:57 | XMS_ITS | Encounter Summary ---
Author Organization [facility] and [facility] Address [address] [place] [address] Care Team Providers Care Chemical Technician Name Role Phone Caitlyn Bowie MD Primary Care Provider +1- [phone] Encounter Details Date Type Department Care Team (Late st Contact Info) Description 12/27/[address] [facility] Health Information Management [address] [place] [address] External, Provider Social History Tobacco Use Types [...] at [facility] [address] [facility] [address] [place] [address] Ronald Mills MD [address] [place] [address] [address] [place] [address] documented as of this encounter [...] as of this encounter Care Teams Chemical Technician Relationship Specialty Start Date End Date Caitlyn Bowie MD 3400 [facility] 1 [place] [address] PCP - General Internal Medicine 05/06/21 Henry Kelly MD Pulmonary Department 175 [facility], [address] [place] [address] Physician Pulmonary Disease 09/06/17 06/22/20 documented as of this encounter
--- OUTSIDE RECORDS SUMMARY | 2024-08-08 15:57 | XMS_ITS | Encounter Summary ---
Author Organization [facility] and [facility] Address [address] [place] [address] Care Team Providers Care Painting And Coating Worker Name Role Phone Caitlyn Bowie MD Primary Care Provider +1- [phone] Encounter Details Date Type Department Care Team (Late st Contact Info) Description 06/17/2016 Scanned Document [facility] Health Information Management [address] [place] [address] External, Provider Social History Tobacco Use Types [...] at [facility] 240 [facility] [address] [place], [place] [phone] Ronald Mills MD 240 [facility] [address]1 [place] [address] documented as of this encounter Visit Diagnoses Not on filedocumented in this encounter Additional Health Concerns Infection Onset Date Last Indicated Resolved Time COVID-19 03/05/2022 03/05/2022 03/15/2022 7:18 PM EDT documented as of this encounter Care Teams Painting And Coating Worker Relationship Specialty Start Date End Date Caitlyn Bowie MD 3400 [facility] 1 [place] [address] PCP - General Internal Medicine 05/06/21 Henry Kelly MD Pulmonary Department 175 [facility], [address] [place] [address] Physician Pulmonary Disease 09/06/17 06/22/20 documented as of this encounter
--- OUTSIDE RECORDS SUMMARY | 2024-08-08 15:57 | XMS_ITS | Clinical Summary ---
Author Organization Counts include 234 beds at the [facility] Address [address] [place] [address] Care Team Providers Care Hydraulic Punch Press Operator Name Role Phone Caitlyn Bowie Primary Care Provider [phone] Allergies Active Allergy Reactions Criticality Noted Date [...] Throat tightness Throat tightness Throat tightness Ipratropium [place] Unknown Medium 12/18/2021 Isosorbide Mononitrate 11/23/2020 Other [...] topic Insurance MEDICARE PART A & B [facility] Care Teams Hydraulic Punch Press Operator Relationship Specialty Start Date End Date Caitlyn Bowie [address] [place] [address] PCP - General Internal Medicine 07/18/22
--- OUTSIDE RECORDS SUMMARY | 2024-08-08 15:57 | XMS_ITS | Encounter Summary ---
Author Organization [facility] and [facility] Address [address] [place] [address] Care Team Providers Care Rough And Trueing Machine Operator Name Role Phone Caitlyn Bowie MD Primary Care Provider +1- [phone] Encounter Details Date Type Department Care Team (Late st Contact Info) Description 07/27/2016 Scanned Document Thoracic Oncology Program at [address] [address] Suzy Kong MD [address] [place] [phone] Social History Tobacco Use Types Packs/Day [...] PM EDT Telemedicine Cancer Center at [address] [place], [place] [phone] Ronald Mills MD 240 [facility] Max [address]1 [place] [address] documented as of this encounter Visit Diagnoses Not on filedocumented in this encounter Additional Health Concerns Infection Onset Date Last Indicated Resolved Time COVID-19 03/05/2022 03/05/2022 03/15/2022 7:18 PM EDT documented as of this encounter Care Teams Rough And Trueing Machine Operator Relationship Specialty Start Date End Date Caitlyn Bowie MD 3400 [facility] Max 1 [place] [address] PCP - General Internal Medicine 05/06/21 Henry Kelly MD Pulmonary Department 175 [facility], [address] [place] [address] Physician Pulmonary Disease 09/06/17 06/22/20 documented as of this encounter
--- OUTSIDE RECORDS SUMMARY | 2024-08-08 15:57 | XMS_ITS | Encounter Summary ---
Author Organization [facility] and [facility] Address [address] [place] [address] Care Team Providers Care Methods Specialist Name Role Phone Caitlyn Boiwe MD Primary Care Provider +1- [phone] Encounter Details Date Type Department Care Team (Late st Contact Info) Description 06/17/2016 Scanned Document [facility] Health Information Management [address] [place] [address] External, Provider Social History Tobacco Use Types [...] Center at [facility] 240 [facility] Building [address] [place], [place] [phone] Ronald Mills MD 240 [facility] Max [address] [place] [address] documented as of this encounter Procedures Procedure Name Priority Date/Time Associated Diagnosis Comments XRAY RESULT SCAN Routine 06/17/2016 documented in this encounter Results * Xray Result Scan (06/17/2016) us Provider External IMG SCAN REPORTS Final Result [facility] [place], [place], [facility] documented in this encounter Visit Diagnoses Not on filedocumented in this encounter Additional Health Concerns Infection Onset Date Last Indicated Resolved Time COVID-19 03/05/2022 03/05/2022 03/15/2022 7:18 PM EDT documented as of this encounter Care Teams Methods Specialist Relationship Specialty Start Date End Date Caitlyn Bowie MD 3400 [facility] 1 [place] [address] PCP - General Internal Medicine 05/06/21 Henry Kelly MD Pulmonary Department [address] [place] [address], [address] [place] [address] Physician Pulmonary Disease 09/06/17 06/22/20 documented as of this encounter
--- OUTSIDE RECORDS SUMMARY | 2024-08-08 15:57 | XMS_ITS | Encounter Summary ---
Author Organization [facility] and [facility] Address [address] [place] [address] Care Team Providers Care Director Health Name Role Phone Caitlyn Bowie MD Primary Care Provider +1- [phone] Encounter Details Date Type Department Care Team (Late st Contact Info) Description 04/04/2016 Scanned Document [facility] Health Information Management [address] [place] [address] External, Provider Social History Tobacco Use Types [...] at [facility] 240 [facility] Building [address] [place], [place] [phone] Ronald Mills MD 240 [facility] Max [address] [place] [address] documented as of this encounter Procedures Procedure Name Priority Date/Time Associated Diagnosis Comments LAB SCAN Routine 04/04/2016 documented in this encounter Results * Lab Scan (04/04/2016) Blood specimen (specimen) us Provider External LAB BLOOD ORDERABLES Final Res ult [facility] documented in this encounter Visit Diagnoses Not on filedocumented in this encounter Additional Health Concerns Infection Onset Date Last Indicated Resolved Time COVID-19 03/05/2022 03/05/2022 03/15/2022 7:18 PM EDT documented as of this encounter Care Teams Director Health Relationship Specialty Start Date End Date Caitlyn Bowie MD 3400 [facility] 1 [place] [address] PCP - General Internal Medicine 05/06/21 Henry Kelly MD Pulmonary Department 175 [facility], [address] [place] [address] Physician Pulmonary Disease 09/06/17 06/22/20 documented as of this encounter
--- OUTSIDE RECORDS SUMMARY | 2024-08-08 15:57 | XMS_ITS | Encounter Summary ---
Author Organization [facility] and [facility] Address [address] [place] [address] Care Team Providers Care Linoleum Installer Name Role Phone Caitlyn Bowie MD Primary Care Provider +1- [phone] Encounter Details Date Type Department Care Team (Late st Contact Info) Description 04/19/2024 Scanned Document INTERFACE DEFAULT [address] [place] [address] System, Provider Not In Social History Tobacco [...] Center at [facility] 240 [facility] Building [address] [place], [place] [phone] Ronald Mills MD [address] [place] [address] [address] [place] [address] documented as of this encounter [...] documented as of this encounter Care Teams Linoleum Installer Relationship Specialty Start Date End Date Caitlyn Bowie MD [address] [address] PCP - General Internal Medicine 05/06/21 documented as of this encounter
--- OUTSIDE RECORDS SUMMARY | 2024-08-08 15:57 | XMS_ITS | Encounter Summary ---
Author Organization [facility] and [facility] Address [address] [place] [address] Care Team Providers Care Chronic Disease Manager Name Role Phone Caitlyn Bowie MD Primary Care Provider +1- [phone] Encounter Details Date Type Department Care Team (Late st Contact Info) Description 07/27/2016 Scanned Document Thoracic Oncology Program at [address] [address] Suzy Kong MD [address] [place] [phone] Social History Tobacco Use Types Packs/Day [...] 1:00 PM EDT Telemedicine Cancer Center at [address] [place], [place] [phone] Ronald Mills MD 240 [facility] Max [address] [place] [address] documented as of this encounter Visit Diagnoses Not on filedocumented in this encounter Additional Health Concerns Infection Onset Date Last Indicated Resolved Time COVID-19 03/05/2022 03/05/2022 03/15/2022 7:18 PM EDT documented as of this encounter Care Teams Chronic Disease Manager Relationship Specialty Start Date End Date Caitlyn Bowie MD 3400 [facility] Max 1 [place] [address] PCP - General Internal Medicine 05/06/21 Henry Kelly MD Pulmonary Department 175 [facility], [address] [place] [address] Physician Pulmonary Disease 09/06/17 06/22/20 documented as of this encounter
--- OUTSIDE RECORDS SUMMARY | 2024-08-08 15:57 | XMS_ITS | Encounter Summary ---
Author Organization [facility] Address [address] [place] [address] Care Team Providers Care Senior Mortgage Loan Processor Name Role Phone Cristofer Hope MD Primary Care Provider Victorino Read MD Primary Care Provider UnavailSharon Kimbrough Primary Care Provider Unava ilBrennan Newman MD Primary Care Provider Unavailab Hayden Montes MD Unavailable [phone] Pallavi Flood NP Unavailable +[phone]- [phone] Caitlyn Bowie MD Primary Care Provider Unaailyn shaver Encounter Details Date Type Department Care Team Description 05/18/2017 Release of Information Medical Records [address] [place] [address] Abstract, Provider Social History Tobacco Use Types [...] on filedocumented in this encounter Care Teams Senior Mortgage Loan Processor Relationship Specialty Start Date End Date Cristofer Hope MD PCP - General Internal Medicine 05/16/17 12/20/17 Victorino Martin MD PCP - General Internal Medicine 12/21/17 08/01/18 Sharon Vides PCP - General Internal Medicine 08/02/18 05/26/20 Brennan Burnett MD PCP - General Internal Medicine 05/27/20 12/07/21 Caitlyn Bowie MD [address] [place] [address] PCP - General Internal Medicine 12/08/21 Hayden Shah MD [address] [place] [address] Specialist Cardiovascular Disease 09/01/20 Pallavi Flood NP [address] [place] [address] Cardiology 09/01/20 documented as of this encounter
--- OUTSIDE RECORDS SUMMARY | 2024-08-08 15:57 | XMS_ITS | Encounter Summary ---
Author Organization [facility] Address [address] [place] [address] Care Team Providers Care Flag Decorator Name Role Phone Caitlyn Bowie MD Primary Care Provider +1- [phone] Encounter Details Date Type Department Care Team (Late st Contact Info) Description 12/28/2018 Scanned Document [facility] Health Information Management [address] [place] [address] External, Provider Social History Tobacco Use Types [...] [facility] 240 [facility] Building [address] [place] [address] Ronald Mills MD [address] [place] [address] [address] [place] [address] documented as of this encounter [...] documented as of this encounter Care Teams Flag Decorator Relationship Specialty Start Date End Date Caitlyn Bowie MD 3400 [facility] Max 1 [place] [address] PCP - General Internal Medicine 05/06/21 Henry Kelly MD Pulmonary Department 175 [facility], [address] [place] [address] Physician Pulmonary Disease 09/06/17 06/22/20 documented as of this encounter
--- OUTSIDE RECORDS SUMMARY | 2024-08-08 15:57 | XMS_ITS | Encounter Summary ---
Author Organization [facility] and [facility] Address [address] [place] [address] Care Team Providers Care Pelt Shearer Name Role Phone Caitlyn Bowie MD Primary Care Provider +1- [phone] Encounter Details Date Type Department Care Team (Late st Contact Info) Description 12/16/2016 Scanned Document [facility] Health Information Management [address] [place] [address] External, Provider Social History Tobacco Use Types [...] [facility] 240 [facility] Building [address] [place], [place] [phone] Ronald Mills MD 240 [facility] Max [address]1 [place] [address] documented as of this encounter [...] documented as of this encounter Care Teams Pelt Shearer Relationship Specialty Start Date End Date Caitlyn Bowie MD 3400 [facility] 1 [place] [address] PCP - General Internal Medicine 05/06/21 Henry Kelly MD Pulmonary Department 175 [facility], [address] [place] [address] Physician Pulmonary Disease 09/06/17 06/22/20 documented as of this encounter
--- OUTSIDE RECORDS SUMMARY | 2024-08-08 15:57 | XMS_ITS | Encounter Summary ---
Author Organization [facility] and [facility] Address [address] [place] [address] Care Team Providers Care Butane Compressor Operator Name Role Phone Caitlyn Bowie MD Primary Care Provider +1- [phone] Encounter Details Date Type Department Care Team (Late st Contact Info) Description 07/27/2016 Scanned Document Thoracic Oncology Program at [address] [address] Suzy Kong MD [address] [place] [phone] Social History Tobacco Use Types Packs/Day [...] 1:00 PM EDT Telemedicine Cancer Center at [address] [place], [place] [phone] Ronald Mills MD 240 [facility] Max [address] [place] [address] documented as of this encounter Visit Diagnoses Not on filedocumented in this encounter Additional Health Concerns Infection Onset Date Last Indicated Resolved Time COVID-19 03/05/2022 03/05/2022 03/15/2022 7:18 PM EDT documented as of this encounter Care Teams Butane Compressor Operator Relationship Specialty Start Date End Date Caitlyn Bowie MD 3400 [facility] Max 1 [place] [address] PCP - General Internal Medicine 05/06/21 Henry Kelly MD Pulmonary Department 175 [facility], [address] [place] [address] Physician Pulmonary Disease 09/06/17 06/22/20 documented as of this encounter
--- OUTSIDE RECORDS SUMMARY | 2024-08-08 15:57 | XMS_ITS | Encounter Summary ---
Author Organization [facility] Address [address] [place] [address] Care Team Providers Care Oracle Ebs Developer Name Role Phone Caitlyn Bowie MD Primary Care Provider +1- [phone] Encounter Details Date Type Department Care Team (Late st Contact Info) Description 07/08/2016 Scanned Document [facility] Health Information Management [address] [place] [address] External, Provider Social History Tobacco Use Types [...] Cancer Center at [facility] 240 [facility] Building [address] [place], [place] [phone] Ronald Mills MD 240 [facility] Max [address]1 [place] [address] documented as of this encounter Procedures Procedure Name Priority Date/Time Associated Diagnosis Comments LAB SCAN Routine 07/08/2016 documented in this encounter Results * Lab Scan (07/08/2016) Blood specimen (specimen) us Provider External LAB BLOOD ORDERABLES Final Res ult [facility] documented in this encounter Visit Diagnoses Not on filedocumented in this encounter Additional Health Concerns Infection Onset Date Last Indicated Resolved Time COVID-19 03/05/2022 03/05/2022 03/15/2022 7:18 PM EDT documented as of this encounter Care Teams Oracle Ebs Developer Relationship Specialty Start Date End Date Caitlyn Bowie MD 3400 [facility] 1 [place] [address] PCP - General Internal Medicine 05/06/21 Henry Kelly MD Pulmonary Department 175 [facility], [address] [place] [address] Physician Pulmonary Disease 09/06/17 06/22/20 documented as of this encounter
--- OUTSIDE RECORDS SUMMARY | 2024-08-08 15:57 | XMS_ITS | Encounter Summary ---
Author Organization [facility] Address [address] [place] [address] Care Team Providers Care [facility] Pricing Consultant Name Role Phone Cristofer Hope MD Primary Care Provider Victorino Read MD Primary Care Provider UnavailSharon Kimbrough Primary Care Provider Unava ilBrennan Newman MD Primary Care Provider Unavailab Hayden Montes MD Unavailable [phone] Pallavi Flood NP Unavailable [phone] Caitlyn Bowie MD Primary Care Provider Unava chhaya Encounter Details Date Type Department Care Team Description 05/19/2017 Transfer Records Medical Records [address] [place] [address] Abstract, Provider Social History Tobacco Use Types [...] on filedocumented in this encounter Care Teams Healthcare Network Pricing Consultant Relationship Specialty Start Date End Date Cristofer Hope MD PCP - General Internal Medicine 05/16/17 12/20/17 Victorino Martin MD PCP - General Internal Medicine 12/21/17 08/01/18 Sharon Vides PCP - General Internal Medicine 08/02/18 05/26/20 Brennan Burnett MD PCP - General Internal Medicine 05/27/20 12/07/21 Caitlyn Bowie MD [address] [place] [address] PCP - General Internal Medicine 12/08/21 Hayden Shah MD [address] [place], [place] [phone] Specialist Cardiovascular Disease 09/01/20 Pallavi Flood NP [address] [place], [place] [address] Cardiology 09/01/20 documented as of this encounter
--- OUTSIDE RECORDS SUMMARY | 2024-08-08 15:57 | XMS_ITS | Encounter Summary ---
Author Organization [facility] and [facility] Address [address] [place] [address] Care Team Providers Care Board Attendant Name Role Phone Caitlyn Bowie MD Primary Care Provider +1- [phone] Encounter Details Date Type Department Care Team (Late st Contact Info) Description 10/10/2016 Scanned Document [facility] Health Information Management [address] [place] [address] External, Provider Social History Tobacco Use Types [...] at [facility] 240 [facility] Building [address] [place], [place] [phone] Ronald Mills MD 240 [facility] A1 [place] [address] documented as of this encounter Visit Diagnoses Not on filedocumented in this encounter Additional Health Concerns Infection Onset Date Last Indicated Resolved Time COVID-19 03/05/2022 03/05/2022 03/15/2022 7:18 PM EDT documented as of this encounter Care Teams Board Attendant Relationship Specialty Start Date End Date Caitlyn Bowie MD 3400 [facility] 1 [place] [address] PCP - General Internal Medicine 05/06/21 Henry Kelly MD Pulmonary Department 175 [facility], [address] [place] [address] Physician Pulmonary Disease 09/06/17 06/22/20 documented as of this encounter
--- OUTSIDE RECORDS SUMMARY | 2024-08-08 15:57 | XMS_ITS | Encounter Summary ---
Author Organization [facility] Address [address] [place] [address] Care Team Providers Care Barrel Reamer Name Role Phone Caitlyn Bowie MD Primary Care Provider [phone]- [phone] Reason for Referral * Imaging (Routine) - Closed Specialty Diagnoses / Procedures Referred By Contac t Referred To Contact Procedures NM Lung Ventilation Perfusion ([facility]) External, Provider Referral ID Status Reason Start Date Expiration Date Visits Re quested Visits Authorized [id number] Closed 08/22/2016 08/22/2017 4 4 Encounter Details Date Type Department Care Team (Late st Contact Info) Description 08/22/2016 Scanned Document Thoracic Oncology Program at [address] [address] External, Provider Social History Tobacco Use Types [...] 1:00 PM EDT [facility] at [address] [place] [address] Ronald Mills MD [address] [place] [address] [address] [place] [id number] documented as of this encounter Procedures Procedure Name Priority Date/Time Associated Diagnosis Comments XRAY RESULT SCAN Routine 07/27/2016 CT RESULT SCAN Routine 07/27/2016 CT RESULT SCAN Routine 07/27/2016 CARDIAC EKG RESULT SCAN Routine 07/27/2016 LAB SCAN Routine 07/27/2016 NM LUNG VENTILATION PERFUSIO N ([facility]) Routine 07/27/2016 documented in this encounter Results * Xray Result Scan (07/27/2016) us Provider External IMG SCAN REPORTS Final Result Performing Organization Address [facility] Co de Phone Number [facility] * CT Result Scan (07/27/2016) us Provider External IMG SCAN REPORTS Final Result Performing Organization Address [facility] Co de Phone Number [facility] * Cardiac EKG Result Scan (07/27/2016) us Provider External CV CARDIAC REPORT (CVR) Final Result Performing Organization Address [facility] Co de Phone Number [facility] * CT Result Scan (07/27/2016) us Provider External IMG SCAN REPORTS Final Result Performing Organization Address [facility] Co de Phone Number [facility] * Lab Scan (07/27/2016) Blood specimen (specimen) us Provider External LAB BLOOD ORDERABLES Final Res ult Performing Organization Address [facility] Co de Phone Number [facility] * NM Lung Ventilation Perfusion ([facility]) (07/27/2016) Anatomical Region Laterality Modality Chest, Lung Nuclear Medicine us Provider External IMG NM ORDERABLES Final Result documented in this encounter Visit Diagnoses Not on filedocumented in this encounter Additional Health Concerns Infection Onset Date Last Indicated Resolved Time COVID-19 03/05/2022 03/05/2022 03/15/2022 7:18 PM EDT documented as of this encounter Care Teams Barrel Reamer Relationship Specialty Start Date End Date Caitlyn Bowie MD [address] [facility] [address] [place] [address] PCP - General Internal Medicine 05/06/21 Henry Kelly MD Pulmonary Department [address] [facility] [place] [address] Physician Pulmonary Disease 09/06/17 06/22/20 documented as of this encounter
--- OUTSIDE RECORDS SUMMARY | 2024-08-08 15:57 | XMS_ITS | Encounter Summary ---
Author Organization [facility] Address [address] [place] [id number] Care Team Providers Care Swimming Pool Maintenance Supervisor Name Role Phone Caitlyn Bowie MD Primary Care Provider [phone]- [phone] Encounter Details Date Type Department Care Team (Late st Contact Info) Description 12/14/2016 Scanned Document [facility] Information Management [address] [place] [id number] External, Provider Social History Tobacco Use Types [...] [facility] [address] [facility] [address] [place], [place] [id number] Ronald Mills MD [address] [facility] [address] [place] [address] documented as of this encounter Visit Diagnoses Not on filedocumented in this encounter Additional Health Concerns Infection Onset Date Last Indicated Resolved Time COVID-19 03/05/2022 03/05/2022 03/15/2022 7:18 PM EDT documented as of this encounter Care Teams Swimming Pool Maintenance Supervisor Relationship Specialty Start Date End Date Caitlyn Bowie MD [address] [facility] [address] [place] [address] PCP - General Internal Medicine 05/06/21 Henry Kelly MD Pulmonary Department [address] [facility] [place] [address] Physician Pulmonary Disease 09/06/17 06/22/20 documented as of this encounter
== END 2024-08-08 10:56 | disposition home or self-care (01) ==
LOC: HO.LAB 10:55
PROVIDERS: Internal Medicine Cardiovascular Disease; PCP Internal Medicine; Visit Provider Hospitalist
DX: J41.0 Simple chronic bronchitis (principal); R30.0 Dysuria; J96.11 Chronic respiratory failure with hypoxia; J96.12 Chronic respiratory failure with hypercapnia; G47.31 Primary central sleep apnea; I27.20 Pulmonary hypertension, unspecified; R91.8 Other nonspecific abnormal finding of lung field; G47.33 Obstructive sleep apnea (adult) (pediatric); J70.1 Chronic and other pulmonary manifestations due to radiation; I50.32 Chronic diastolic (congestive) heart failure; C34.12 Malignant neoplasm of upper lobe, left bronchus or lung; J90 Pleural effusion, not elsewhere classified
CPT/HCPCS: 36415; 80048; 80076; 81003; 82803; 85025; 85652; 99212

== ENCOUNTER 2024-08-08 10:55 | Outpatient (AMB) | payer MEDICARE, SELFPAY ==
[2024-08-08 10:58] VITALS: BP 110/56; PULSE 85; O2SAT 98; BMI 22.8
--- NOTE | 2024-08-08 10:58 | A.OFFVIS_ITS ---
Vital Signs 08/08/24 10:58 Height 5 ft 3 in Weight 128 lb 15.527 oz BMI 22.8 BP 110/56 L Blood Pressure Location Rt brachial Position Sitting Pulse 85 Pulse Source Pulse Oximeter Pulse Oximetry (%) 98 Oxygen Delivery Method Nasal Cannula Oxygen Flow Rate 2 Intake Visit Reasons: Dyspnea Allergies morphine Allergy (Severe, Verified 08/08/24 11:04) Itching avocado [AVOCADO] Allergy (Mild, Verified 08/08/24 11:04) ITCHY THROAT, RASH azithromycin [AZITHROMYCIN] Allergy (Mild, Verified 08/08/24 11:04) ITCHY THROAT, RASH barium iodide [BARIUM IODIDE] Allergy (Mild, Verified 08/08/24 11:04) ITCHY THROAT, RASH barium sulfate Allergy (Mild, Verified 08/08/24 11:04) Itch bee pollen [BEE STINGS] Allergy (Mild, Verified 08/08/24 11:04) ITCHY THROAT, RASH ciprofloxacin [From CIPRO] Allergy (Mild, Verified 08/08/24 11:04) ITCHY THROAT, RASH clarithromycin [From BIAXIN] Allergy (Mild, Verified 08/08/24 11:04) ITCHY THROAT, RASH diatrizoate meglumine [From GASTROGRAFIN] Allergy (Mild, Verified 08/08/24 11:04) ITCHY THROAT, RASH diatrizoate sodium [From GASTROGRAFIN] Allergy (Mild, Verified 08/08/24 11:04) ITCHY THROAT, RASH diclofenac [From VOLTAREN] Allergy (Mild, Verified 08/08/24 11:04) ITCHY THROAT, RASH erythromycin base [ERYTHROMYCIN BASE] Allergy (Mild, Verified 08/08/24 11:04) ITCHY THROAT, RASH gentamicin [GENTAMICIN] Allergy (Mild, Verified 08/08/24 11:04) ITCHY THROAT, RASH Iodinated Contrast Media [IVP DYE] Allergy (Mild, Verified 08/08/24 11:04) ITCHY THROAT, RASH levofloxacin [From LEVAQUIN] Allergy (Mild, Verified 08/08/24 11:04) ITCHY THROAT, RASH metronidazole [From FLAGYL] Allergy (Mild, Verified 08/08/24 11:04) ITCHY THROAT, RASH moxifloxacin [From AVELOX] Allergy (Mild, Verified 08/08/24 11:04) ITCHY THROAT, RASH Penicillins [PENICILLINS] Allergy (Mild, Verified 08/08/24 11:04) ITCHY THROAT, RASH shrimp [SHRIMP] Allergy (Mild, Verified 08/08/24 11:04) ITCHY THROAT, RASH Sulfa (Sulfonamide Antibiotics) [SULFA (SULFONAMIDE ANTIBIOTICS)] Allergy (Mild, Verified 08/08/24 11:04) ITCHY THROAT, RASH vancomycin [VANCOMYCIN] Allergy (Mild, Verified 08/08/24 11:04) ITCHY THROAT, RASH clindamycin Adverse Reaction (Intermediate, Verified 08/08/24 11:04) Unknown HPI Comments Details: The patient is a 79 y/o woman with a complicated history which includes: COPD, KANDY, pulmonary HTN, history pulmonary emboli on chronic anticoagulation, lung CA Stage IIIA s/o neoadjuvant chemoradiation and Left upper lobe lobectomy. She did have a CT scan today that I personally reviewed. Has not been personally read by the radiologist. Based on my reading she has some pulmonary nodules some that are new 4 mm in the right major fissure area. Other nodules are stable. Other post operative and pulmonary fibrotic changes stable. The patient should get a CT scan in 6 months. Also to note, she did not tolerate the Incruse nor budesonide. Will consider Daliresp. She was admitted to [facility] with diverticulitis. She was placed on IV antibiotics but she left against medical advice because she did not like the antibiotic options. In the meantime she was having some issues with coughing up some blood. She is also concerned because on her visit to [facility] she did have a CT scan of the chest and she was told that she had significant scarring of her lungs in addition to lung volume loss. I have not looked at the CT scan back in reassured her that she has had this radiation fibrosis for long time and volume loss due to the scarring was p resent before. We did review her perfusion scan demonstrating no defects to suggest any blood clots. Interestingly in the quantitative study the patient did have 81% of the blood flow going to her right lung and 18% going to the left. This is likely due to her previous surgery and also radiation changes. 11/09/2023 the patient is here for a pulmonary follow-up visit. During the last visit the patient was having chest discomfort dizziness. We did check a D-dimer that was significantly elevated. The patient did go to [facility] which she did have a CTA. The patient did not have any evidence of any blood clots. I did personally review the CTA demonstrating stable postoperative changes and fibrotic changes. No significant new nodules noted. Again no thromboembolic disease. The patient was discharged. She has been doing okay she has been using her oxygen. She continued on the diuretics. She has episodes of palpitations with heart rate she states goes up to 150 beats per minute. During those episodes she does drop her saturations down to the 80s. Usually the symptoms subside after several minutes. The patient in the meantime has been complaining of lower extremity pain especially behind her knee on her left lower extremity. We did again recheck his D-dimer continues to be elevated so therefore will do lower extremity Dopplers. The patient is on Coumadin and her last INR was documented to be 1.5 which is her therapeutic window specially since she has platelet dysfunction. She continues respiratory therapy. She did have an episode of palpitations when using the nebulizer so I did recommend she can only use half a treatment if she really needs it. Otherwise she should try to refrain from its specially if she has had more cardiac instability and ir ritability. We also checked her electrolytes because of that as well. Her potassium was 3.1. She had not taken today's dose of potassium so therefore I did emphasize importance of taking her potassium oral supplementation to minimize cardiac arrhythmias. 12/15/2023 the patient is here for pulmonary follow-up visit. Still having difficulties with her lower extremity edema. I did reassure her that her weight has been stable in that is more important. She has already a dose of diuretics. The patient has been having some bruising primarily because of the compression stockings. This is typical specially with her anticoagulation and platelet dysfunction. The patient also has a cough chest congestion. She has chronic lung disease and COPD with chronic bronchitis explained to her that she will always make mucus. She responds well to the oxygen she is using more regularly with good response. The patient has been using her BiPAP. BiPAP therapy has been affecting beneficial although her AHI now is elevated up to 15. She is having some central apneas. I did check a blood gas in her pCO2 is 59 mm Hg. At this point she is feeling BiPAP. The patient has hypercarbic respiratory failure due to her COPD. This carries a poor prognosis and high risk for hospitalizations. Therefore we are going to switch over to a noninvasive ventilator, astral. This provide her with better gas exchange improved prognosis and decrease hospitalizations. I did talk to the [employer] that supplies with the BiPAP to switch over to the astral at this time. 12/26/2023 the patient is here for sick visit. Since her last visit she did have a blood gas demonstrating an elevated CO2 of 59 mm Hg. The patient has hypercarbic respiratory failure due to her COPD. In addition to that she does have significant sleep apnea. She has been on BiPAP and she has had multiple sleep studies demonstrating the BiPAP settings are appropriate for her. Although, the last downloaded demonstrated that her AHI significantly increased up to about 15 events per hour. Some component of central apneas noted suggesting a complex sleep apnea picture. Therefore, based on the fact that she has hypercarbic respiratory failure we did set up with an astral. She has tried over the weekend she states that she developed significant chest pain shortness of breath she can not tolerate it. She does want keep using it. She went back to him BiPAP. In view of her worsening AHI will go ahead and refer her to a sleep specialist in addition to that will request an in-lab titration study to see if we can adequately titrate her on a BiPAP or IVAP. In the meantime she does continue with her ongoing shortness of breath cough mucus plugging. She does have some wheezing on examination. She needs to make sure to use her inhalers and she can also use her nebulizer as needed. She is already on prednisone 2.5 mg twice a day were not going to increase this at this time. She does have poor sleep quality. She is also having issues with a times being tearful and somewhat depressed. Also affecting her sleep-wake cycle. She is currently on trazodone with partial improvement. She is trying to get off the benzodiazepines because she has concerned the CO2 retention. I believe this is reasonable. 01/26/2024 the patient is here for a pulmonary follow-up visit. She was recently hospital for a injury to her lower extremity. Apparently she was her by a shopping cart were hit her leg and caused her to have a significant hematoma. It did requiring debridement at the bedside. She went to a rehab and then she came back and now she has had a different rehab. Now getting wound care. In the meantime she still having difficulties with breathing. She has been using her oxygen at 2 L. when she does not use her oxygen she tends to go to tachyarrhythmias so therefore did recommend she continue using her oxygen all times. The patient also has been using the BiPAP. She did not tolerate the AVAP. I did download the BiPAP and her AHI continues to be elevated still. Therefore increased her EPAP from 8-10. Now she has a settings of BiPAP of 16/10. She will call next week to let me know how she is doing a can download the machine is if we can increase it further. Will slowly increase it to get to the effective therapeutic pressures. She has other complaints including dry mouth nausea likely from her new medications specially pain medications and she did complete antibiotics for her extremity wound. She continues on Coumadin. While in the hospital she did have a V/Q scan which was indeterminate but no evidence of any PE that could be appreciated. She continues with respiratory therapy with good effect. Will follow-up the patient hopefully in 3-4 weeks and hopefully she is home by then. 02/15/2024 the patient is here for pulmonary follow-up visit. She is still the rehabilitation. She is recovering from the right lower extremity wound. She is having more pain and swelling. She needs to be evaluated for the wound. We did call vascular surgery and they recommended that she follow-up with wound care. Looks like wound care already saw her in the hospital. Will try to facil itate her care so therefore put a referral in to make sure that she gets seen as well as possible in view of the significant mood that she has. From a respiratory status the patient is doing okay. She is using her oxygen with good effect. The patient also has been using the BiPAP at nighttime. The BiPAP therapy continues to be affecting beneficial. She does complaint of chest pain and pressure. Is substernal in nature. Seems to be ongoing. No pleuritic component. Will have her get a chest x-ray to make sure. But since she is still at rehab she can have 1 done while she is there. In the meantime we did do an EKG demonstrating the conduction abnormalities. Appear to be stable. She does have increasing anxiety. I did recommend she can take Anxiolytic medicine during the day and also as needed. 03/21/2024 the patient is here for pulmonary follow-up visit. She has multiple complaints. She is entirely seems any physicians. She is still dealing with the wound getting plenty of wound care 4. Still getting debrided. In addition to that she has had a productive cough. The phlegm is now clear but thick difficult to expectorate. Sometimes feel like it is dripping for nasal passages down like a postnasal drip. The patient is currently on cefpodoxime. She is finishing a course. We did try to get sputum in the office but she was not able to do so. I did give her a cup in order for her to be doing her own time. We will be able to look for both Gram stain culture and also AFB. The patient also had a chest x-ray which I personally reviewed and also compared to her previous x-rays. It appears that she has worsening left-sided pleural effusion. Hard to know that is long as very affected on that side there is any active disease otherwise. She has not had a CT scan since October. In view of the worsening chest x-ray in the ongoing symptoms will go ahead and request a CT scan time. The patient also could try some Mucomyst. I will send some to the pharmacy to see if we can get it. She understands that is hard to get. When she gets she can use it twice a day for CPT to see if this helps clear the secretions that gets that within her airways. In addition to that the patient has been using the BiPAP. The BiPAP therapy has been affecting beneficial. She does use it for more than 4 hours a night. However, she does have a component of hypercarbia and she would do better with the noninvasive ventilator. Currently she is set up for sleep study at [facility] coming up. Hopefully they can do a split study and try titrate her figure out what her best form of therapy it is. At some point though if she continues on the BiPAP will need to replace it because his older than 5 years. 05/09/2024 the patient is here for a pulmonary follow-up visit. Overall she is doing well from a respiratory status. She recently did have a CT scan of the chest that at [facility]. I did personally reviewed. Appears to be stable. She does have the chronic effusion in the parenchymal disease. This is all stable. She does have a small compression fracture though. Has significant osteopenia. She did have blood work with her research greenhouse supervisor recently. Her antiphospholipid antibodies and anticardiolipin antibodies continue antiphospholipid antibody elevated. Her homocystine that was also elevated. She is going to start folic acid. She is concerned because her D-dimer was significantly elevated. Although she did have trauma to the legs. She had lower extremity Dopplers which were negative for any clots which is reassuring. Previous he Q scans have been reassuring. Will go ahead and repeat her blood test to see make sure that the D-dimer is coming down. If the D-dimer continues to be elevated then will do additional testing for potential occult clots. She continues on the Coumadin with a goal level 1.5-2. I do believe that she should stay on it based on the fact that she has significant symptoms and coming off the medicine may result in more security of the results specially since the Coumadin has been working for her chronic thromboembolic disease. From the wound standpoint the patient is doing better from the wound healing on her right lower extremity although she recently had another the trauma to the left. She is also dealing with a boil or a growth on the perineal area. She is going to be seeing window unit air conditioning mechanic for that. 08/08/2024 the patient is here for a pulmonary follow-up visit. Overall she is doing okay. She does have issues with her balance and also issues with dysuria. The patient has been also having issues with her oxygen that was at nighttime. She has been noticing worsening hypoxia. She has been using her BiPAP 16/10. She does use it with her oxygen. The patient did have a download recently and her AHI is up to 10 cm. She also had a blood gas demonstrating elevations in her CO2. Therefore, will go ahead and increase her BiPAP settings from 16-10 to 18/12. This BiPAP is about 6 years old now. The patient likely needs a replacement. Will go ahead and refer her to sleep in [place] in order for her to undergo a split study in order to get her a new PAP therapy. During the titration study component will be helpful to see if she is better off with AVAPS versus BiPAP. We did try her underlying AVAP but she could not tolerate it. She followed she did not have enough teaching. Therefore, will go ahead and increase the pressures of her BiPAP monitor her AHI and recheck a venous gas while we wait for her to see a certified sleep specialist in [place]. In the meantime she continues with her diuresis. Will go ahead and check a blood work. The patient also had a CT scan of the chest back in 03/29/2024 demonstrating no acute disease just a chronic changes. Will plan to talk about any additional imaging during her next visit. She will continue with current respiratory regimen for now. [facility] Medical History (Updated 04/12/24 @ 00:00 by Anabella Raza) COPD (chronic obstructive pulmonary disease) Open wound Warfarin anticoagulation Complex sleep apnea syndrome Chronic hypercapnic respiratory failure Leg pain Anemia Tachycardia DVT (deep venous thrombosis) Compression fracture of body of thoracic vertebra ASD (atrial septal defect) Pleuritic chest pain History of COVID-19 Chronic anticoagulation Hypothyroidism GERD (gastroesophageal reflux disease) Hyperlipidemia Hypertension Factor 5 Leiden mutation, heterozygous History of non-ST elevation myocardial infarction (NSTEMI) Hypoxia Anxiety PTSD (post-traumatic stress disorder) Hemoptysis Dyspnea Tracheobronchitis CLARA positive Diverticulitis Allergic bronchitis (HFpEF) heart failure with preserved ejection fraction Subarachnoid bleed Insomnia Anti-phospholipid antibody syndrome Hypogammaglobulinemia Chronic respiratory failure Arterial insufficiency of lower extremity Complex regional pain syndrome i of right lower limb Post herpetic neuralgia Pulmonary hypertension Pericardial effusion Pulmonary emboli Pleural effusion Radiation fibrosis of lung Pneumonitis Pulmonary nodules KANDY treated with BiPAP Lung cancer Surgical History History of colonoscopy History of lung surgery History of tonsillectomy History of hysterectomy S/P mitral valve clip implantation History of cardiac cath Family History Sister No problems noted. Mother Cardiovascular disease Daughter Tachycardia Other KANDY (obstructive sleep apnea) Social History Household Members: Other Housing: Prison Do you presently have visiting nurse or other home services: Yes (at home had ALIGNING INSPECTOR that came to visit her) Unable to assess alcohol history related to: Unknown Alcohol intake: former Comment: stand by assist with ambulation Patient Tobacco Use Status: Never used Tobacco Second Hand Smoke Exposure: No Advance Directives Date on File: 06/15/22 service: No Current occupational status: retired Review of Systems Const Denies chills, Reports daytime sleepiness, Denies fever(s), Denies frequent falls, Denies weakness, Denies weight gain and Denies weight loss Eyes Denies change in vision ENT Denies change in voice and Denies dizziness Card Denies chest pain, Denies leg edema, Denies lightheadedness, Denies palpitations, Denies dyspnea, Reports dyspnea on exertion, Denies orthopnea and Denies other (loss of consciousness) Resp Reports cough, Denies pain on inspiration, Denies pain with cough, Denies dyspnea and Reports dyspnea on exertion GI Denies hematochezia and Denies change in stool character Musc Reports as per HPI and Reports muscle weakness Skin/Breast Reports change in pigmentation, Reports skin swelling and Reports unusual bruising Neuro Denies dizziness, Denies frequent falls and Denies weakness Psych Reports depression Endo Denies palpitations Physical Exam Vital Signs: Last Vital Signs Pulse 85 08/08/24 10:58 BP 110/56 L 08/08/24 10:58 Pulse Ox 98 08/08/24 10:58 Oxygen Delivery Method Nasal Cannula 08/08/24 10:58 Oxygen Flow Rate 2 08/08/24 10:58 BMI result Body Mass Index 22.8 Last Vital Signs Temp 97.7 F 06/20/22 08:00 Pulse 90 06/20/22 08:00 Resp 16 06/20/22 08:00 BP 137/60 06/20/22 08:00 Pulse Ox 93 06/20/22 08:00 O2 Del Method 06/20/22 08:00 O2 Flow Rate 2 06/20/22 08:00 FiO2 45 06/14/22 11:07 BMI result Body Mass Index 23.0 Const General: cooperative, comfortable, alert and awake Orientation/consciousness: patient oriented x3 HEENT Head: Yes atraumatic Eyes General: appearance normal, both eyes and all related structures Neck Neck: Yes trachea midline, Yes supple and Yes no JVD Chest Chest palpation & inspection: tenderness rib (right side) Resp Effort & Inspection: normal respiratory effort, no cough and No prolonged expiratory phase Auscultation: no rales, no rhonchi, no wheezes and diminished lung sounds Cardio Rate: regular rate Rhythm: regular rhythm Heart sounds: S1 normal heart sound present and S2 normal heart sound present GI Auscultation: normal bowel sounds Skin General skin exam: purpura and scars Neuro General: patient oriented x3 and no focal motor deficits Extrem Right lower extremity: edema Assessment & Plan Assessment & Plan (1) COPD (chronic obstructive pulmonary disease): Code(s): J44.9 - Chronic obstructive pulmonary disease, unspecified Category: Medical Qualifiers: COPD type: chronic bronchitis Chronic bronchitis type: simple Qualified Code(s): J41.0 - Simple chronic bronchitis (2) Dysuria: Code(s): R30.0 - Dysuria Category: Medical (3) Chronic hypercapnic respiratory failure: Code(s): J96.12 - Chronic respiratory failure with hypercapnia Category: Medical (4) Complex sleep apnea syndrome: Code(s): G47.31 - Primary central sleep apnea Category: Medical (5) Pulmonary hypertension: Comment: severe based on RHC, moderate based on recent echo Code(s): I27.20 - Pulmonary hypertension, unspecified Category: Medical (6) Pulmonary nodules: Code(s): R91.8 - Other nonspecific abnormal finding of lung field Category: Medical (7) Chronic respiratory failure: Code(s): J96.10 - Chronic respiratory failure, unspecified whether with hypoxia or hypercapnia Category: Medical Qualifiers: Respiratory failure complication: hypoxia and hypercapnia Qualified Code(s): J96.11 - Chronic respiratory failure with hypoxia; J96.12 - Chronic respiratory failure with hypercapnia (8) KANDY treated with BiPAP: Code(s): G47.33 - Obstructive sleep apnea (adult) (pediatric) Category: Medical (9) Radiation fibrosis of lung: Code(s): J70.1 - Chronic and other pulmonary manifestations due to radiation Category: Medical (10) Diastolic CHF: Code(s): I50.30 - Unspecified diastolic (congestive) heart failure Category: Medical Qualifiers: Heart failure chronicity: chronic Qualified Code(s): I50.32 - Chronic diastolic (congestive) heart failure (11) (HFpEF) heart failure with preserved ejection fraction: Code(s): I50.30 - Unspecified diastolic (congestive) heart failure Category: Medical Qualifiers: Heart failure chronicity: chronic Qualified Code(s): I50.32 - Chronic diastolic (congestive) heart failure (12) Lung cancer: Code(s): C34.90 - Malignant neoplasm of unspecified part of unspecified bronchus or lung Category: Medical Qualifiers: Laterality: left Lung location: upper lobe of lung Qualified Code(s): C34.12 - Malignant neoplasm of upper lobe, left bronchus or lung (13) Pleural effusion: Code(s): J90 - Pleural effusion, not elsewhere classified Category: Medical Plan prednisone 2.5 mg QOD Ambien for sleep continue Advair ASHA as needed continue ASHA (xopenex) as needed refer to Sleep specialist (CT) CPT with acapella valve fluticasone Oxygen 2L/pulse with activity and sleep. POC Inogen G5 duiresis as tolerated BIPAP 16/9 to 16/8 to 16/10->(AHI 10) increased to 18/12. Will request a BIPAP/ivap titration study. She would like to have her study in [place] where she had a good experience in the past. We will look into ordering a replacement PAP therapy after she has completed her titration study. CT chest stable 03/2024 at [facility] [place] bloodwork, blood gas F/U 3 months Orders: Orders Complete Blood Count Auto Diff Today J41.0 - Simple chronic bronchitis, R30.0 - Dysuria Erythrocyte Sedimentation Rate Today J41.0 - Simple chronic bronchitis, R30.0 - Dysuria Basic Metabolic Panel Today J41.0 - Simple chronic bronchitis, R30.0 - Dysuria Liver Panel Today J41.0 - Simple chronic bronchitis, R30.0 - Dysuria Venous Blood Gas Today J41.0 - Simple chronic bronchitis, R30.0 - Dysuria UA CC w/rflx Micro + Cult Today J41.0 - Simple chronic bronchitis, R30.0 - Dysuria Coding Level of Care Code Est Pt Level 5 (63973) Complex EM visit Add On G2211 Diagnoses Simple chronic bronchitis J41.0 COPD type: chronic bronchitis Chronic bronchitis type: simple Dysuria R30.0 Chronic hypercapnic respiratory failure J96.12 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
--- OUTSIDE RECORDS SUMMARY | 2024-08-08 14:42 | XMS_ITS | Encounter Summary ---
Author Organization [facility] Address [address] [place] [address] Care Team Providers Care Customer Solutions Coordinator Name Role Phone Caitlyn Bowie MD Primary Care Provider +1- [phone] Encounter Details Date Type Department Care Team (Late st Contact Info) Description 07/08/2020 Scanned Document [facility] Health Information Management [address] [place] [address] External, Provider Social History Tobacco Use Types Packs/Day Years Used Date Smoking Tobacco: Never Smokeless Tobacco: Never Comments:2nd hand smoking Alcohol Use Standard Drinks/Week Comments No 0 (1 standard drink = 0.6 oz pur e alcohol) PHQ-2 Answer Date Recorded PHQ-2 Score 2 12/13/2018 Comments No Sex and Gender Information Value Date Recorded Sex Assigned at Not on file Legal Sex Female 7:29 AM EST Gender Identity Not on file Sexual Orientation Not on file documented as of this encounter Plan of Treatment Upcoming Encounters Date Type Department Care Team (Late st Contact Info) Description 10/31/2024 1:00 PM EDT Telemedicine Cancer Center at [facility] 240 [facility] [address] [place], [place] [phone] Ronald Mills MD [address] [place] [address] [address] [place] [address] documented as of this encounter Procedures Procedure Name Priority Date/Time Associated Diagnosis Comments CT RESULT SCAN Routine 07/08/2020 documented in this encounter Results * CT Result Scan (07/08/2020) us Provider External IMG SCAN REPORTS Final Result documented in this encounter Visit Diagnoses Not on filedocumented in this encounter Additional Health Concerns Infection Onset Date Last Indicated Resolved Time COVID-19 03/05/2022 03/05/2022 03/15/2022 7:18 PM EDT Assessment Noted Time PHQ-9 Depression Total Score: 2 11/07/19 19 2:06 PM EDT documented as of this encounter Care Teams Customer Solutions Coordinator Relationship Specialty Start Date End Date Caitlyn Bowie MD [address] [address] PCP - General Internal Medicine 05/06/21 documented as of this encounter
--- OUTSIDE RECORDS SUMMARY | 2024-08-08 14:42 | XMS_ITS | Encounter Summary ---
Author Organization [facility] Address [address] [place] [address] Care Team Providers Care Church Musician Name Role Phone Caitlyn Bowie MD Primary Care Provider +1- [phone] Encounter Details Date Type Department Care Team (Late st Contact Info) Description 02/20/2017 Scanned Document [facility] Health Information Management [address] [place] [address] External, Provider Social History Tobacco Use Types Packs/Day Years Used Date Smoking Tobacco: Never Smokeless Tobacco: Never Alcohol Use Standard Drinks/Week Comments No 0 (1 standard drink = 0.6 oz pur e alcohol) Comments No Sex and Gender Information Value Date Recorded Sex Assigned at Not on file Legal Sex Female 7:29 AM EST Gender Identity Not on file Sexual Orientation Not on file documented as of this encounter Plan of Treatment Upcoming Encounters Date Type Department Care Team (Late st Contact Info) Description 10/31/2024 1:00 PM EDT Telemedicine [facility] at [facility] 240 [facility] [address] [place], [place] [phone] Ronald Mills MD 240 [facility] [address] [place] [address] documented as of this encounter Procedures Procedure Name Priority Date/Time Associated Diagnosis Comments US RESULT SCAN Routine 02/20/2017 documented in this encounter Results * US Result Scan (02/20/2017) us Provider External IMG SCAN REPORTS Final Result documented in this encounter Visit Diagnoses Not on filedocumented in this encounter Additional Health Concerns Infection Onset Date Last Indicated Resolved Time COVID-19 03/05/2022 03/05/2022 03/15/2022 7:18 PM EDT documented as of this encounter Care Teams Church Musician Relationship Specialty Start Date End Date Caitlyn Bowie MD 34[address] [facility] [address] [place] [address] PCP - General Internal Medicine 05/06/21 Henry Kelly MD Pulmonary Department 175 [facility], [address] [place] [address] Physician Pulmonary Disease 09/06/17 06/22/20 documented as of this encounter
--- OUTSIDE RECORDS SUMMARY | 2024-08-08 14:42 | XMS_ITS | Encounter Summary ---
Author Organization [facility] Address [address] [place] [address] Care Team Providers Care Supply Chain Intern Name Role Phone Caitlyn Bowie MD Primary Care Provider +1- [phone] Encounter Details Date Type Department Care Team (Late st Contact Info) Description 01/28/2013 Scanned Document Thoracic Oncology Program at [address] [address] Solo Henry MD [address] [place] [address] Social History Tobacco Use Types Packs/Day Years Used Date Smoking Tobacco: Never Alcohol Use Standard Drinks/Week Comments Not Asked 0 (1 standard drink = 0.6 oz pur e alcohol) Comments Unknown Sex and Gender Information Value Date Recorded Sex Assigned at Not on file Legal Sex Female 7:29 AM EST Gender Identity Not on file Sexual Orientation Not on file documented as of this encounter Plan of Treatment Upcoming Encounters Date Type Department Care Team (Late st Contact Info) Description 10/31/2024 1:00 PM EDT Telemedicine Cancer Center at [facility] 240 [facility] [address] [place], [place] [address] Ronald Mills MD 240 [facility] [address] [place] [address] documented as of this encounter Visit Diagnoses Not on filedocumented in this encounter Additional Health Concerns Infection Onset Date Last Indicated Resolved Time COVID-19 03/05/2022 03/05/2022 03/15/2022 7:18 PM EDT documented as of this encounter Care Teams Supply Chain Intern Relationship Specialty Start Date End Date Caitlyn Bowie MD 34[address] [facility] [address] [place] [address] PCP - General Internal Medicine 05/06/21 Henry Kelly MD Pulmonary Department 175 [facility], [address] [place] [address] Physician Pulmonary Disease 09/06/17 06/22/20 documented as of this encounter
--- OUTSIDE RECORDS SUMMARY | 2024-08-08 14:42 | XMS_ITS | Encounter Summary ---
Author Organization [facility] Address [address] [place] [address] Care Team Providers Care Java Lead Architect Name Role Phone Caitlyn Bowie MD Primary Care Provider +1- [phone] Encounter Details Date Type Department Care Team (Late st Contact Info) Description 09/17/2020 Scanned Document [facility] Health Information Management [address] [place] [address] External, Provider Social History Tobacco Use Types [...] 1:00 PM EDT Telemedicine Cancer Center at [facility] 240 [facility] Building [address] [place], [place] [phone] Ronald Mills MD [address] [place] [address] [address] [place] [address] documented as of this encounter Procedures Procedure Name Priority Date/Time Associated Diagnosis Comments US RESULT SCAN Routine 09/17/2020 CARDIAC ECHO RESULT SCAN Routine 09/17/2020 documented in this encounter Results * Cardiac Echo Result Scan (09/17/2020) us Provider External CV CARDIAC REPORT (CVR) Final Result * US Result Scan (09/17/2020) us Provider External IMG SCAN REPORTS Final Result documented in this encounter Visit Diagnoses Not on filedocumented in this encounter Additional Health Concerns Infection Onset Date Last Indicated Resolved Time COVID-19 03/05/2022 03/05/2022 03/15/2022 7:18 PM EDT Assessment Noted Time PHQ-9 Depression Total Score: 2 11/07/19 19 2:06 PM EDT documented as of this encounter Care Teams Java Lead Architect Relationship Specialty Start Date End Date Caitlyn Bowie MD [address] [address] PCP - General Internal Medicine 05/06/21 documented as of this encounter
--- OUTSIDE RECORDS SUMMARY | 2024-08-08 14:42 | XMS_ITS | Encounter Summary ---
Author Organization [facility] Address [address] [place] [address] Care Team Providers Care Account Resolution Expert Name Role Phone Caitlyn Bowie MD Primary Care Provider +1- [phone] Encounter Details Date Type Department Care Team (Latest Contact Info) Description 04/15/2013 Transcribed Orders [facility] [address] [place] [address] Tian Atwood MD [address] [place] [facility] [address] [place] [address] Unspecified hypothyroidism (Primary Dx) Social History Tobacco Use Types Packs/Day Years [...] 1:00 PM EDT Telemedicine Cancer Center at [facility] 240 [facility] [address] [place] [address] Ronald Mills MD 240 [facility] [address] [place] [address] documented as of this encounter Results * Copper, serum total (YH) (04/15/2013 4:31 PM EDT) Copper, Serum Total SEE BELOW [facility] Comment: Test ?Result ? Flag ??Unit ?RefValue Copper, S ? 1.35 ? mcg/mL ??0.75-1.45 04/15/2013 4:31 PM EDT us Tian Atwood MD LAB BLOOD ORDERABLES Final R esult Performing Organization Address City/State/[facility] Co de Phone Number [facility] [address] [place] [address] documented in this encounter Visit Diagnoses Diagnosis Unspecified hypothyroidism- Primary documented in this encounter Additional Health Concerns Infection Onset Date Last Indicated Resolved Time COVID-19 03/05/2022 03/05/2022 03/15/2022 7:18 PM EDT documented as of this encounter Care Teams Account Resolution Expert Relationship Specialty Start Date End Date Caitlyn Bowie MD [address] [place] [facility] 1 [place] [address] PCP - General Internal Medicine 05/06/21 Henry Kelly MD Pulmonary Department 175 [facility], [address] [place] [address] Physician Pulmonary Disease 09/06/17 06/22/20 documented as of this encounter
--- OUTSIDE RECORDS SUMMARY | 2024-08-08 14:42 | XMS_ITS | Encounter Summary ---
Author Organization [facility] Address [address] [place] [address] Care Team Providers Care Line Manager Name Role Phone Victorino Martin MD Primary Care Provider UnavailSharon Kimbrough Primary Care Provider Unava ilable Brennan Burnett MD Primary Care Provider Unavailab Hayden Montes MD Unavailable [phone] Pallavi Flood NP Unavailable [phone]- [phone] Caitlyn Bowie MD Primary Care Provider Unava ilable Reason for Visit * Reason Onset Date Comments TEST RESULTS 06/14/2018 Call From Lab 06/14/2018 Encounter Details Date Type Department Care Team Description 06/14/2018 Telephone Pulmonology - [place] [address] [facility] [address] [place] [address] Andre Benites PA-C [address] [facility] [address] [place] [address] TEST RESULTS; Call From Lab Social History Tobacco Use Types Packs/Day Years Used Date Smoking Tobacco: Never Smokeless Tobacco: Never Alcohol Use Standard Drinks/Week Comments No 0 (1 standard drink = 0.6 oz pur e alcohol) Physical Activity Answer Date Recorded On average, how many days pe r week do you engage in moderate to strenuous exercise (like walking fast, running, jogging, dancing, swimming, biking, or other activities that cause a light or heavy sweat)? 0 days 09/01/2020 On average, how many minutes do you engage in exercise at this level? 0 min 09/01/2020 Sex Assigned at Date Recorded Not on file documented as of this encounter Miscellaneous Notes * Telephone Encounter - Ace Patel - 06/14/2018 2:01 PM EST Shruti is calling to let us know that the sputum dropped off by patient is not a good sample it is mostly saliva. A new sample needs to be ordered and gotten. documented in this encounter Plan of Treatment Not on file documented as of this encounter Visit Diagnoses Not on filedocumented in this encounter Care Teams Line Manager Relationship Specialty Start Date End Date Victorino Martin MD PCP - General Internal Medicine 12/21/17 08/01/18 Sharon Vides PCP - General Internal Medicine 08/02/18 05/26/20 Brennan Burnett MD PCP - General Internal Medicine 05/27/20 12/07/21 Caitlyn Bowie MD [address] [place] [address] PCP - General Internal Medicine 12/08/21 Hayden Shah MD [address] [place] [address] Specialist Cardiovascular Disease 09/01/20 Pallavi Flood NP [address] [place] [address] Cardiology 09/01/20 documented as of this encounter
--- OUTSIDE RECORDS SUMMARY | 2024-08-08 14:42 | XMS_ITS | Encounter Summary ---
Author Organization [facility] Address [address] [place] [address] Care Team Providers Care Mortician Helper Name Role Phone Caitlyn Bowie MD Primary Care Provider +1- [phone] Encounter Details Date Type Department Care Team (Late st Contact Info) Description 08/29/2019 Scanned Document Cancer Center at [address] [address] External, Provider Social History Tobacco Use Types [...] Center at [facility] 240 [facility] [address] [place], [place] [address] Ronald Mills MD [address] [place] [address] [address] [place] [address] documented as of this encounter Procedures Procedure Name Priority Date/Time Associated Diagnosis Comments LAB SCAN Routine 08/29/2019 documented in this encounter Results * Lab Scan (08/29/2019) us Provider External LAB BLOOD ORDERABLES Final Res ult documented in this encounter Visit Diagnoses Not on filedocumented in this encounter Additional Health Concerns Infection Onset Date Last Indicated Resolved Time COVID-19 03/05/2022 03/05/2022 03/15/2022 7:18 PM EDT Assessment Noted Time PHQ-9 Depression Total Score: 2 11/07/19 19 2:06 PM EDT documented as of this encounter Care Teams Mortician Helper Relationship Specialty Start Date End Date Caitlyn Bowie MD 3400 [facility] 1 [place] [address] PCP - General Internal Medicine 05/06/21 Henry Kelly MD Pulmonary Department 175 [facility], [address] [place] [address] Physician Pulmonary Disease 09/06/17 06/22/20 documented as of this encounter
--- OUTSIDE RECORDS SUMMARY | 2024-08-08 14:42 | XMS_ITS | Encounter Summary ---
Author Organization [facility] Address [address] [place] [address] Care Team Providers Care Career Technology Teacher Name Role Phone Caitlyn Bowie MD Primary Care Provider +1- [phone] Encounter Details Date Type Department Care Team (Late st Contact Info) Description 05/14/2020 Documentation Hematology Program at [address] [address] Taya Nuno RN Social History Tobacco Use Types Packs/Day Years [...] 1:00 PM EDT Telemedicine Cancer Center at [address] [place] [address] Ronald Mills MD [address] [place] [address] documented as of this encounter Visit Diagnoses Not on filedocumented in this encounter Additional Health Concerns Infection Onset Date Last Indicated Resolved Time COVID-19 03/05/2022 03/05/2022 03/15/2022 7:18 PM EDT Assessment Noted Time PHQ-9 Depression Total Score: 2 11/07/19 19 2:06 PM EDT documented as of this encounter Care Teams Career Technology Teacher Relationship Specialty Start Date End Date Caitlyn Bowie MD 34[address] [facility] [address] [place] [address] PCP - General Internal Medicine 05/06/21 Henry Kelly MD Pulmonary Department 175 [facility], [address] [place] [address] Physician Pulmonary Disease 09/06/17 06/22/20 documented as of this encounter
--- OUTSIDE RECORDS SUMMARY | 2024-08-08 14:42 | XMS_ITS | Encounter Summary ---
Author Organization [facility] Address [address] [place] [address] Care Team Providers Care Last Repairer Helper Name Role Phone Caitlyn Bowie MD Primary Care Provider +1- [phone] Encounter Details Date Type Department Care Team (Late st Contact Info) Description 09/15/2020 Scanned Document [facility] Health Information Management [address] [place] [address] External, Provider Social History Tobacco Use Types [...] 1:00 PM EDT Telemedicine Cancer Center at [facility] 240 [facility] Building [address] [place], [place] [address] Ronald Mills MD [address] [place] [address] [address] [place] [address] documented as of this encounter Procedures Procedure Name Priority Date/Time Associated Diagnosis Comments XRAY RESULT SCAN Routine 09/15/2020 CARDIAC EKG RESULT SCAN Routine 09/15/2020 documented in this encounter Results * Cardiac EKG Result Scan (09/15/2020) us Provider External CV CARDIAC REPORT (CVR) Final Result * Xray Result Scan (09/15/2020) us Provider External IMG SCAN REPORTS Final Result documented in this encounter Visit Diagnoses Not on filedocumented in this encounter Additional Health Concerns Infection Onset Date Last Indicated Resolved Time COVID-19 03/05/2022 03/05/2022 03/15/2022 7:18 PM EDT Assessment Noted Time PHQ-9 Depression Total Score: 2 11/07/19 19 2:06 PM EDT documented as of this encounter Care Teams Last Repairer Helper Relationship Specialty Start Date End Date Caitlyn Bowie MD [address] [address] PCP - General Internal Medicine 05/06/21 documented as of this encounter
--- OUTSIDE RECORDS SUMMARY | 2024-08-08 14:42 | XMS_ITS | Encounter Summary ---
Author Organization [facility] Address [address] [place] [address] Care Team Providers Care Rn Physician Office Name Role Phone Caitlyn Bowie MD Primary Care Provider +1- [phone] Encounter Details Date Type Department Care Team (Late st Contact Info) Description 12/16/2016 Scanned Document [facility] Health Information Management [address] [place] [address] External, Provider Social History Tobacco Use Types [...] 1:00 PM EDT Telemedicine Cancer Center at [facility] 240 [facility] [address] [place], [place] [phone] Ronald Mills MD 240 [facility] [address] [place] [address] documented as of this encounter Procedures Procedure Name Priority Date/Time Associated Diagnosis Comments US RESULT SCAN Routine 12/16/2016 documented in this encounter Results * US Result Scan (12/16/2016) us Provider External IMG SCAN REPORTS Edited Result - Final documented in this encounter Visit Diagnoses Not on filedocumented in this encounter Additional Health Concerns Infection Onset Date Last Indicated Resolved Time COVID-19 03/05/2022 03/05/2022 03/15/2022 7:18 PM EDT documented as of this encounter Care Teams Rn Physician Office Relationship Specialty Start Date End Date Caitlyn Bowie MD 3400 [facility] 1 [place] [address] PCP - General Internal Medicine 05/06/21 Henry Kelly MD Pulmonary Department 175 [facility], [address] [place] [address] Physician Pulmonary Disease 09/06/17 06/22/20 documented as of this encounter
--- OUTSIDE RECORDS SUMMARY | 2024-08-08 14:42 | XMS_ITS | Encounter Summary ---
Author Organization [facility] Address [address] [place] [address] Care Team Providers Care Services Clerk Name Role Phone Victorino Martin MD Primary Care Provider UnavailSharon Kimbrough Primary Care Provider Unava ilable Brennan Burnett MD Primary Care Provider Unavailab Hayden Montes MD Unavailable [phone] Pallavi Flood NP Unavailable [phone]- [phone] Caitlyn Bowie MD Primary Care Provider Unava shenaable Reason for Visit * Reason Onset Date Comments hospital follow up 07/30/2018 Encounter Details Date Type Department Care Team Description 07/30/2018 Telephone Pulmonology - [address] [place] [address] Henry Kelly MD hospital follow up Social History Tobacco Use Types Packs/Day Years [...] encounter Miscellaneous Notes * Telephone Encounter - Nasima Sr M.A. - 08/01/2018 9:[address] Kelly, Can yo get the d/c paperwork for me? Patient is coming in tomorrow. Thank you. * Telephone Encounter - Nasima Sr M.A. - 07/30/2018 3:55 PM EST ..Please advise. * Telephone Encounter - Val Felix - 07/30/2018 1:10 PM EST Patient was admitted into [facility] with a d/c of Monday. The patient was admitted for Pnemonia and she has a blood clot in the left arm vein which is very painful. She would like to be seen today, is there any way you can fit her in today. Please call the patient at [phone]. documented in this encounter Plan of Treatment Not on file documented as of this encounter Visit Diagnoses Not on filedocumented in this encounter Care Teams Services Clerk Relationship Specialty Start Date End Date Victorino Martin MD PCP - General Internal Medicine 12/21/17 08/01/18 Sharon Vides PCP - General Internal Medicine 08/02/18 05/26/20 Brennan Burnett MD PCP - General Internal Medicine 05/27/20 12/07/21 Caitlyn Bowie MD [address] [place] [address] PCP - General Internal Medicine 12/08/21 Hayden Shah MD [address] [place] [id number] Specialist Cardiovascular Disease 09/01/20 Pallavi Flood NP [address] [place] [address] Cardiology 09/01/20 documented as of this encounter
--- OUTSIDE RECORDS SUMMARY | 2024-08-08 14:42 | XMS_ITS | Encounter Summary ---
Author Organization [facility] Address [address] [place] [address] Care Team Providers Care Data Conversion Analyst Name Role Phone Caitlyn Bowie MD Primary Care Provider +1- [phone] Encounter Details Date Type Department Care Team (Late st Contact Info) Description 09/15/2020 Scanned Document Cancer Center at [address] [address] External, Provider Social History Tobacco Use Types [...] 1:00 PM EDT Telemedicine Cancer Center at [facility] [address] [facility] [address] [place], [place] [address] Ronald Mills MD [address] [place] [address] [address] [place] [address] documented as of this encounter Procedures Procedure Name Priority Date/Time Associated Diagnosis Comments LAB SCAN Routine 09/15/2020 documented in this encounter Results * Lab Scan (09/15/2020) us Provider External LAB BLOOD ORDERABLES Final Res ult documented in this encounter Visit Diagnoses Not on filedocumented in this encounter Additional Health Concerns Infection Onset Date Last Indicated Resolved Time COVID-19 03/05/2022 03/05/2022 03/15/2022 7:18 PM EDT Assessment Noted Time PHQ-9 Depression Total Score: 2 11/07/19 19 2:06 PM EDT documented as of this encounter Care Teams Data Conversion Analyst Relationship Specialty Start Date End Date Caitlyn Bowie MD [address] [address] PCP - General Internal Medicine 05/06/21 documented as of this encounter
--- OUTSIDE RECORDS SUMMARY | 2024-08-08 14:42 | XMS_ITS | Encounter Summary ---
Author Organization [facility] and [facility] Address [address] [place] [address] Care Team Providers Care Network Professional Name Role Phone Caitlyn Bowie MD Primary Care Provider +1- [phone] Encounter Details Date Type Department Care Team (Late Contact Info) Description 09/09/2020 Scanned Document [facility] Health Information Management [address] [place] [address] External, Provider Social History Tobacco Use Types [...] 1:00 PM EDT Telemedicine [facility] 240 [facility] [address] [place], [place] [phone] Ronald Mills MD [address] [place] [address] [address] [place] [address] documented as of this encounter Procedures Procedure Name Priority Date/Time Associated Diagnosis Comments PFT SCAN Routine 09/09/2020 documented in this encounter Results * PFT Scan (09/09/2020) us Provider External PFT ORDERABLES Final Result documented in this encounter Visit Diagnoses Not on filedocumented in this encounter Additional Health Concerns Infection Onset Date Last Indicated Resolved Time COVID-19 03/05/2022 03/05/2022 03/15/2022 7:18 PM EDT Assessment Noted Time PHQ-9 Depression Total Score: 2 11/07/19 19 2:06 PM EDT documented as of this encounter Care Teams Network Professional Relationship Specialty Start Date End Date Caitlyn Bowie MD [address] [address] PCP - General Internal Medicine 05/06/21 documented as of this encounter
--- OUTSIDE RECORDS SUMMARY | 2024-08-08 14:42 | XMS_ITS | Encounter Summary ---
Author Organization [facility] and [facility] Address [address] [place] [address] Care Team Providers Care Receiving Checker Name Role Phone Caitlyn Bowie MD Primary Care Provider +1- [phone] Encounter Details Date Type Department Care Team (Late st Contact Info) Description 09/15/2020 Scanned Document INTERFACE DEFAULT [address] [place] [address] System, Provider Not In Social History Tobacco Use Types Packs/Day Years [...] 1:00 PM EDT Telemedicine [facility] 240 [facility] [address] [place] [address] Ronald Mills MD [address] [place] [address] [address] [place] [address] documented as of this encounter Visit Diagnoses Not on filedocumented in this encounter Additional Health Concerns Infection Onset Date Last Indicated Resolved Time COVID-19 03/05/2022 03/05/2022 03/15/2022 7:18 PM EDT Assessment Noted Time PHQ-9 Depression Total Score: 2 11/07/19 19 2:06 PM EDT documented as of this encounter Care Teams Receiving Checker Relationship Specialty Start Date End Date Caitlyn Bowie MD [address] [address] PCP - General Internal Medicine 05/06/21 documented as of this encounter
--- OUTSIDE RECORDS SUMMARY | 2024-08-08 14:42 | XMS_ITS | Encounter Summary ---
Author Organization [facility] and [facility] Address [address] [place] [address] Care Team Providers Care Resident Medical Officer Name Role Phone Caitlyn Bowie MD Primary Care Provider +1- [phone] Encounter Details Date Type Department Care Team (Late st Contact Info) Description 02/02/2017 Scanned Document [facility] Health Information Management [address] [place] [address] External, Provider Social History Tobacco Use Types [...] at [facility] 240 [facility] Building [address] [place], [place] [phone] Ronald Mills MD 240 [facility] [address] [place] [address] documented as of this encounter Visit Diagnoses Not on filedocumented in this encounter Additional Health Concerns Infection Onset Date Last Indicated Resolved Time COVID-19 03/05/2022 03/05/2022 03/15/2022 7:18 PM EDT documented as of this encounter Care Teams Resident Medical Officer Relationship Specialty Start Date End Date Caitlyn Bowie MD 3400 [facility] 1 [place] [address] PCP - General Internal Medicine 05/06/21 Henry Kelly MD Pulmonary Department 175 [facility], [address] [place] [address] Physician Pulmonary Disease 09/06/17 06/22/20 documented as of this encounter
--- OUTSIDE RECORDS SUMMARY | 2024-08-08 14:42 | XMS_ITS | Encounter Summary ---
Author Organization [facility] Address [address] [place] [address] Care Team Providers Care Bag Valver Name Role Phone Victorino Martin MD Primary Care Provider Sharon Odonnell Primary Care Provider Brennan Castro MD Primary Care Provider Unavailab Hayden Montes MD Unavailable [phone] Pallavi Flood NP Unavailable [phone]- [phone] Caitlyn Bowie MD Primary Care Provider Johnathon shaver Encounter Details Date Type Department Care Team Description 07/06/2018 Pt. Non Urgent Medic al Question Pulmonology - [address] [place] [address] Herny Kelly MD Social History Tobacco Use Types Packs/Day Years [...] on file documented as of this encounter Progress Notes * Maryse Iqbal M.A. - 07/06/2018 1:00 PM ESTFrom: Jovana Malik To: Henry Kelly MD Sent: 07/06/2018 7:59 AM EST Subject: hospital visit Good morning Dr. Kelly, Well here we go again. I went to the hospital at 2 a.m. on July 04 with incredible chest pain it woke me up. Went to [facility] they kept me there overnight did blood work, chest xray and ultrasound of legs all proved negative. they then stated that I have constrachronditis I think they are wrongbecause the pain is gone today (07/06/2018). Is it possible for costachronditis to only hang aroundfor a day or two? I am worried about all the xrays to my chest. can you look at the xray and let me know what you think. Thank you, Jovana Malik documented in this encounter Plan of Treatment Not on file documented as of this encounter Visit Diagnoses Not on filedocumented in this encounter Care Teams Bag Valver Relationship Specialty Start Date End Date Victorino Martin MD PCP - General Internal Medicine 12/21/17 08/01/18 Sharon Vides PCP - General Internal Medicine 08/02/18 05/26/20 Brennan Burnett MD PCP - General Internal Medicine 05/27/20 12/07/21 Caitlyn Bowie MD [address] [place] [address] PCP - General Internal Medicine 12/08/21 Hayden Shah MD [address] [place] [address] Specialist Cardiovascular Disease 09/01/20 Pallavi Flood NP [address] [place] [address] Cardiology 09/01/20 documented as of this encounter
--- OUTSIDE RECORDS SUMMARY | 2024-08-08 14:42 | XMS_ITS | Encounter Summary ---
Author Organization [facility] and [facility] Address [address] [place] [phone] Care Team Providers Care Battery Parts Assembler Name Role Phone Caitlyn Bowie MD Primary Care Provider +1- [phone] Encounter Details Date Type Department Care Team (Late st Contact Info) Description 09/16/2020 Scanned Document [facility] Health Information Management [address] [place] [address] External, Provider Social History Tobacco Use Types [...] 1:00 PM EDT Telemedicine [facility] Center at [facility] 240 [facility] Building [address] [place], [place] [phone] Ronald Mills MD [address] [place] [address] [address] [place] [phone] documented as of this encounter Procedures Procedure Name Priority Date/Time Associated Diagnosis Comments CT RESULT SCAN Routine 09/16/2020 documented in this encounter Results * CT Result Scan (09/16/2020) us Provider External IMG SCAN REPORTS Final Result documented in this encounter Visit Diagnoses Not on filedocumented in this encounter Additional Health Concerns Infection Onset Date Last Indicated Resolved Time COVID-19 03/05/2022 03/05/2022 03/15/2022 7:18 PM EDT Assessment Noted Time PHQ-9 Depression Total Score: 2 11/07/19 19 2:06 PM EDT documented as of this encounter Care Teams Battery Parts Assembler Relationship Specialty Start Date End Date Caitlyn Bowie MD [address] [address] PCP - General Internal Medicine 05/06/21 documented as of this encounter
--- OUTSIDE RECORDS SUMMARY | 2024-08-08 14:42 | XMS_ITS | Encounter Summary ---
Author Organization [facility] and [facility] Address [address] [place] [address] Care Team Providers Care Garment Patternmaker Name Role Phone Caitlyn Bowie MD Primary Care Provider +1- [phone] Encounter Details Date Type Department Care Team (Late st Contact Info) Description 09/07/2020 Scanned Document Cardiovascular Medicine at [address] [place] [phone] Norma Renee MD [address] [place] [phone] Social History Tobacco Use Types Packs/Day Years [...] 1:00 PM EDT Telemedicine Cancer Center at [address] [place] [address] Ronald Mills MD [address] [place] [address] [address] [place] [address] documented as of this encounter Visit Diagnoses Not on filedocumented in this encounter Additional Health Concerns Infection Onset Date Last Indicated Resolved Time COVID-19 03/05/2022 03/05/2022 03/15/2022 7:18 PM EDT Assessment Noted Time PHQ-9 Depression Total Score: 2 11/07/19 19 2:06 PM EDT documented as of this encounter Care Teams Garment Patternmaker Relationship Specialty Start Date End Date Caitlyn Bowie MD [address] [address] PCP - General Internal Medicine 05/06/21 documented as of this encounter
--- OUTSIDE RECORDS SUMMARY | 2024-08-08 14:42 | XMS_ITS | Encounter Summary ---
Author Organization [facility] and [facility] Address [address] [place] [address] Care Team Providers Care Wiring Technician Name Role Phone Caitlyn Bowie MD Primary Care Provider +1- [phone] Encounter Details Date Type Department Care Team (Late st Contact Info) Description 08/29/2019 Scanned Document Cancer Center at [address] [address] External, Provider Social History Tobacco Use Types [...] 1:00 PM EDT Telemedicine Cancer Center at [facility] 240 [facility] Building [address] [place], [place] [phone] Ronald Mills MD [address] [place] [address] [address] [place] [address] documented as of this encounter [...] documented as of this encounter Care Teams Wiring Technician Relationship Specialty Start Date End Date Caitlyn Bowie MD 3400 [facility] 1 [place] [address] PCP - General Internal Medicine 05/06/21 Henry Kelly MD Pulmonary Department 175 [facility], [address] [place] [address] Physician Pulmonary Disease 09/06/17 06/22/20 documented as of this encounter
--- OUTSIDE RECORDS SUMMARY | 2024-08-08 14:42 | XMS_ITS | Clinical Summary ---
Author Organization [facility] Address [address] [place] [address] Care Team Providers Care Sand Conditioner Machine Name Role Phone Brennan Burnett MD Primary Care Provider Allergies Active Allergy Reactions Criticality Noted Date Comments Avocado High 04/15/2013 Other reaction(s): Resp Distress Azithromycin 03/05/2013 Barium Iodid Other (See Comments) High 01/19/2016 Other reaction(s): Throat Closes Barium-Containing Compounds 09/16/2016 Bee Pollen 04/15/2013 Other reaction(s): Resp Distress Allergic to bee stings Ciprofloxacin Medium 08/26/2014 Patient reported that she couldn't walk Patient reported that she couldn't walk Clarithromycin Other (See Comments) High 11/07/2012 Diatrizoate Swelling High 09/23/2015 Throat tightness Diclofenac Anaphylaxis,Other (See Comments) High 11/07/2012 Elemental Sulfur Hives,Itching,Rash Low 05/09/2008 Erythromycin Anaphylaxis,Other (See Comments) High 11/07/2012 Gentamicin Hives,Rash High 05/09/2008 Levofloxacin Nausea And Vomiting Medium 02/18/2013 painful tight joints Metronidazole High 10/17/2014 Other reaction(s): Resp Distress Visual changes, back pain, weakness Molds & Smuts Other (See Comments) High 04/15/2013 Morphine Nausea And Vomiting,Other (See Comments) Medium 09/26/2014 Flushed, almost passed out Moxifloxacin Anaphylaxis,Hives,I tching,Rash,Other (See Comments),Shortness Of Breath,Swelling High 05/09/2008 Other reaction(s): Rash Other Other (See Comments) 05/09/2008 muscles relaxers Some muscle relaxers Penicillins Anaphylaxis,Hives,I tching,Rash,Other (See Comments),Shortness Of Breath High 05/09/2008 Procaine Other (See Comments) 01/19/2016 Shrimp Other (See Comments),Itching Medium 12/16/2018 Sulfa Antibiotics Anaphylaxis,Other (See Comments) High 11/07/2012 Vancomycin Anaphylaxis,Rash,Ot her (See Comments),Shortness Of Breath High 11/07/2012 Medications Medication Sig Dispensed Refills Start Date End Date Status albuterol (PROVENTIL HFA;VENTOLIN HFA) 108 (90 Base) MCG/ACT inhaler Inhale 2 puffs into the lungs every 4 (four) hours as needed. 0 Active albuterol (PROVENTIL HFA;VENTOLIN HFA) 108 (90 Base) MCG/ACT inhaler Inhale 2 puffs into the lungs. 0 06/25/2018 Active azelastine (ASTEPRO) 0.15 % nasal spray TWO SPRAYS INTO EACH NOSTRIL TWO TIMES A DAY 0 05/07/2020 Active cefpodoxime (VANTIN) 100 MG/5ML suspension TAKE 2 TEASPOONFULS (10ML) BY MOUTH EVERY 12 HOURS. 0 04/14/2020 Active cetirizine (ZyrTEC) 10 MG tablet Take 10 mg by mouth. 0 Ac tive Cholecalciferol (D-5000) 125 MCG (5000 UT) TABS Take 1 tablet by mouth. 0 Active clindamycin (CLEOCIN) 150 MG capsule TAKE 4 CAPSULES BY MOUTH 1 HOUR BEFORE APPOINTMENT 0 07/14/2020 Active cyanocobalamin (VITAMIN B12) 1000 MCG/ML injection Inject 1,000 mcg into the muscle. 0 Active docusate sodium (COLACE) 100 MG capsule Take 200 mg by mouth. 0 Act esmer doxycycline (VIBRA-TABS) 100 MG tablet Take 1 tablet by mouth. 0 Active Elderberry 575 MG/5ML SYRP Take by mouth. 0 Active EPINEPHrine (EpiPen 2-Daniel) 0.3 MG/0.3ML SOAJ 0.3 mg. 0 09/16/2015 Active Ferrous Sulfate (IRON) 325 (65 Fe) MG TABS Take by mouth. 0 Active fluticasone (FLONASE) 50 MCG/ACT nasal spray 1 spray. 0 Activ e fluticasone (Flovent HFA) 110 MCG/ACT inhaler Inhale 220 mcg into the lungs. 0 12/18/2018 Active ADVAIR HFA 230-21 MCG/ACT inhaler INHALE 2 PUFFS TWO TIMES A DAY 0 07/06/2020 Active furosemide (LASIX) 20 MG tablet Take 20 mg by mouth daily as needed. 0 08/07/2017 Active SYNTHROID 25 MCG tablet TAKE 1 TABLET BY MOUTH 5 DAYS A WEEK AND TAKE 2 TABLETS 2 DAYS A WEEK ONCE A DAY 0 07/04/2020 Active Lifitegrast 5 % SOLN Apply to eye. 0 Active Magnesium Oxide, Antacid, 500 MG CAPS Take 500 mg by mouth. 0 Act esmer meclizine (ANTIVERT) 25 MG tablet Take 25 mg by mouth. 0 Acti ve metoprolol succinate (TOPROL-XL) 24 hr tablet 50 mg TAKE ONE TABLET BY MOUTH EVERY DAY 0 07/05/2020 Active montelukast (SINGULAIR) 10 MG tablet TAKE ONE TABLET BY MOUTH EVERY DAY 0 07/06/2020 Active omeprazole (PriLOSEC) 40 MG capsule Take 40 mg by mouth daily. 0 07/06/2020 Active predniSONE (DELTASONE) tablet 10 mg Take 10 mg by mouth. 0 Acti ve Saccharomyces boulardii (PROBIOTIC) 250 MG CAPS Take by mouth. 0 Active torsemide (DEMADEX) 10 MG tablet Take 10 mg by mouth. 0 06/27/2017 Ac tive traZODone (DESYREL) 50 MG tablet Take 100 mg by mouth every night at bedtime. 0 07/07/2020 Active JANTOVEN 1 MG tablet TAKE 1 TO 4 TABLETS BY MOUTH EVERY DAY DIRECTED BY THE COUMADIN CLINIC 0 06/03/2020 Active warfarin (COUMADIN) 3 MG tablet Take 3 mg by mouth. 0 Acti ve Active Problems Problem Noted Date Diagnosed Date Arthritis of carpometacarpal (CMC) joint of left thumb 07/31/2020 Family History Medical History Relation Name Comments Cancer Mother Diabetes Mother Hypertension Mother Cancer Sister Clotting disorder Sister Relation Name Status Comments Mother Sister Social History Tobacco Use Types Packs/Day Years Used Date Smoking Tobacco: Never Smokeless Tobacco: Never Alcohol Use Standard Drinks/Week Comments No 0 (1 standard drink = 0.6 oz pur e alcohol) Sex and Gender Information Value Date Recorded Sex Assigned at Not on file Gender Identity Not on file Sexual Orientation Not on file Last Filed Vital Signs Vital Sign Reading Time Taken Comments Blood Pressure - - Pulse - - Temperature - - Respiratory Rate - - Oxygen Saturation - - Inhaled Oxygen Concentration - - Weight 59 kg (130 lb) 07/31/2020 11:32 AM EST Height 160 cm (5' 3 ) 07/31/2020 11:32 AM EST Body Mass Index 23.03 07/31/2020 11:32 AM EST Plan of Treatment Health Maintenance Due Date Last Done Comments COVID-19 Vaccine (#1) 1943 Depression Screening 1955 Preventative Health Evaluation 1961 Shingrix-Zoster Vaccine (1 of 2) 1993 Fall Risk Assessment 2008 Osteoporosis Screening (DEXA Scan) 2008 Pneumococcal Vaccine (2 of 2 - PCV) 09/16/2016 09/17/2015 RSV Adult > 60+ Yrs or Pregn ant (1 - 1-dose 75+ series) 2018 Influenza Vaccine (#1) 2024 04/27/2020 DTap / Tdap / Td (2 - Td or Tdap) 02/16/2026 016 Hepatitis B Vaccines Aged Out No long er eligible based on patient's age to complete this topic RSV Ped < 20 months Aged Out No longe r eligible based on patient's age to complete this topic Care Teams Sand Conditioner Machine Relationship Specialty Start Date End Date Brennan Burnett MD [address] [place] [address] PCP - General Internal Medicine 07/06/20
--- OUTSIDE RECORDS SUMMARY | 2024-08-08 14:42 | XMS_ITS | Encounter Summary ---
Author Organization [facility] Address [address] [place] [address] Care Team Providers Care Alarm Operator Name Role Phone Victorino Martin MD Primary Care Provider Sharon Odonnell Primary Care Provider Brennan Castro MD Primary Care Provider Unavailab Hayden Montes MD Unavailable [phone] Pallavi Flood NP Unavailable [phone]- [phone] Caitlyn Bowie MD Primary Care Provider Johnathon shaver Encounter Details Date Type Department Care Team Description 07/04/2018 Refill Pulmonology - [address] [place] [address] Henry Kelly MD Social History Tobacco Use Types [...] encounter Miscellaneous Notes * Telephone Encounter - Maryse Iqbal M.A. - 07/04/2018 2:28 PM ESTFrom: Jovana Malik To: Henry Kelly MD Sent: 07/04/2018 2:12 PM EST Subject: Medication Renewal Request Original authorizing provider: MD Jovana Martino would like a refill of the following medications: omeprazole (PRILOSEC) 40 MG capsule [Henry Kelly MD] Preferred pharmacy: [id number] Comment: documented in this encounter Plan of Treatment Not on file documented as of this encounter Visit Diagnoses Not on filedocumented in this encounter Care Teams Alarm Operator Relationship Specialty Start Date End Date Victorino Martin MD PCP - General Internal Medicine 12/21/17 08/01/18 Sharon Vides PCP - General Internal Medicine 08/02/18 05/26/20 Brennan Burnett MD PCP - General Internal Medicine 05/27/20 12/07/21 Caitlyn Bowie MD [address] [place] [address] PCP - General Internal Medicine 12/08/21 Hayden Shah MD [address] [place] [address] Specialist Cardiovascular Disease 09/01/20 Pallavi Flood NP [address] [place] [address] Cardiology 09/01/20 documented as of this encounter
--- OUTSIDE RECORDS SUMMARY | 2024-08-08 14:42 | XMS_ITS | Encounter Summary ---
Author Organization [facility] Address [address] [place] [address] Care Team Providers Care Scrap Iron Loader Name Role Phone Victorino Martin MD Primary Care Provider Sharon Odonnell Primary Care Provider Brennan Castro MD Primary Care Provider Unavailab Hayden Montes MD Unavailable [phone] Pallavi Flood NP Unavailable [phone]- [phone] Caitlyn Bowie MD Primary Care Provider Johnathon shaver Encounter Details Date Type Department Care Team Description 06/21/2018 Orders Only Pulmonology - [address] [place] [address] Henry Kelly MD Social History [...] as of this encounter Plan of Treatment Not on file documented as of this encounter Visit Diagnoses Not on filedocumented in this encounter Care Teams Scrap Iron Loader Relationship Specialty Start Date End Date Victorino Martin MD PCP - General Internal Medicine 12/21/17 08/01/18 Sharon Vides PCP - General Internal Medicine 08/02/18 05/26/20 Brennan Burnett MD PCP - General Internal Medicine 05/27/20 12/07/21 Caitlyn Bowie MD [address] [place] [address] PCP - General Internal Medicine 12/08/21 Hayden Shah MD [address] [place], [place] [phone] Specialist Cardiovascular Disease 09/01/20 Pallavi Flood NP [address] [place] [address] Cardiology 09/01/20 documented as of this encounter
--- OUTSIDE RECORDS SUMMARY | 2024-08-08 14:42 | XMS_ITS | Encounter Summary ---
Author Organization [facility] Address [address] [place] [address] Care Team Providers Care Spike Machine Operator Name Role Phone Caitlyn Bowie MD Primary Care Provider +1- [phone] Encounter Details Date Type Department Care Team (Late st Contact Info) Description 12/16/2016 Scanned Document [facility] Health Information Management [address] [place] [address] External, Provider Social History Tobacco Use Types [...] [facility] at [facility] 240 [facility] Building [address] [place], [place] [phone] Ronald Mills MD [address] [facility] [address] [place] [address] documented as of this encounter Procedures Procedure Name Priority Date/Time Associated Diagnosis Comments LAB SCAN Routine 12/16/2016 documented in this encounter Results * Lab Scan (12/16/2016) Blood specimen (specimen) us Provider External LAB BLOOD ORDERABLES Edited Re sult - Final documented in this encounter Visit Diagnoses Not on filedocumented in this encounter Additional Health Concerns Infection Onset Date Last Indicated Resolved Time COVID-19 03/05/2022 03/05/2022 03/15/2022 7:18 PM EDT documented as of this encounter Care Teams Spike Machine Operator Relationship Specialty Start Date End Date Caitlyn Bowie MD 3400 [facility] 1 [place] [address] PCP - General Internal Medicine 05/06/21 Henry Kelly MD Pulmonary Department 175 [facility], [address] [place] [address] Physician Pulmonary Disease 09/06/17 06/22/20 documented as of this encounter
--- OUTSIDE RECORDS SUMMARY | 2024-08-08 14:42 | XMS_ITS | Encounter Summary ---
Author Organization [facility] Address [address] [place] [address] Care Team Providers Care Fermenter Wine Name Role Phone Caitlyn Bowie MD Primary Care Provider +1- [phone] Encounter Details Date Type Department Care Team (Late st Contact Info) Description 12/19/2016 Scanned Document [facility] Health Information Management [address] [place] [address] External, Provider Social History Tobacco Use Types [...] 1:00 PM EDT Telemedicine Cancer Center at [facility] 240 [facility] Building [address] [place], [place] [phone] Ronald Mills MD 240 [facility] [address] [place] [address] documented as of this encounter Procedures Procedure Name Priority Date/Time Associated Diagnosis Comments CARDIAC ECHO RESULT SCAN Routine 12/19/2016 documented in this encounter Results * Cardiac Echo Result Scan (12/19/2016) us Provider External CV CARDIAC REPORT (CVR) Edited Result - Final documented in this encounter Visit Diagnoses Not on filedocumented in this encounter Additional Health Concerns Infection Onset Date Last Indicated Resolved Time COVID-19 03/05/2022 03/05/2022 03/15/2022 7:18 PM EDT documented as of this encounter Care Teams Fermenter Wine Relationship Specialty Start Date End Date Caitlyn Bowie MD [facility] 1 [place] [address] PCP - General Internal Medicine 05/06/21 Henry Kelly MD Pulmonary Department 175 [facility], [address] [place] [address] Physician Pulmonary Disease 09/06/17 06/22/20 documented as of this encounter
--- OUTSIDE RECORDS SUMMARY | 2024-08-08 14:42 | XMS_ITS | Encounter Summary ---
Author Organization [facility] Address [address] [place] [address] Care Team Providers Care Graphic Pre Press Trades Worker Name Role Phone Brennan Burnett MD Primary Care Provider [phone] Reason for Visit * Reason Onset Date Comments Memory Loss 08/08/2024 Returned pt call from 08/07 about recent missed visit. Pt is not interested in in person f/u right now due to cold weather and other medical issues. She will f/u with medical team if she wants to address cognitive status in future Encounter Details Date Type Department Care Team (Late st Contact Info) Description 08/08/2024 Telephone [facility] Speech Therapy [address] [address] Daphne Alarcon, DIRECTOR OF RECRUITMENT Memory Loss (Returned pt call from 08/07 about recent missed visit. Pt is not interested in in person f/u right now due to cold weather and other medical issues. She will f/u with medical team if she wants to address cognitive status in future) Social History Tobacco Use Types Packs/Day Years Used Date Smoking Tobacco: Never Smokeless Tobacco: Never Alcohol Use Standard Drinks/Week Comments No 0 (1 standard drink = 0.6 oz pur e alcohol) Sex and Gender Information Value Date Recorded Sex Assigned at Female 06/15/2024 3:38 PM EST Gender Identity Female 06/15/2024 3:38 PM EST Sexual Orientation Straight 06/15/2024 3: 38 PM EST Job Start Date Occupation Industry Not on file Not on file Not on file documented as of this encounter Functional Status Functional Status Response Date of Assess ment Are you deaf or do you have serious difficulty h earing? No 06/15/2024 Are you blind or do you have serious difficulty seeing, even when wearing glasses? No 06/15/2024 Do you have serious difficul ty walking or climbing stairs? No 06/15/2024 Do you have serious difficulty dressing or bathi ng? No 06/15/2024 Because of a physical, menta l, or emotional condition, do you have serious difficulty doing errands alone such as visiting the doctor? No 06/15/2024 Cognitive Status Response Date of Assessm ent Because of a physical, menta l, or emotional condition, do you have serious difficulty concentrating, remembering, or making decisions? (5 years old or older) No 06/15/2024 documented as of this encounter Plan of Treatment Upcoming Encounters Date Type Department Care Team (Late st Contact Info) Description 08/23/2024 1:20 PM EST Office Visit Gastroenterology - 299 [facility] 299 [facility] [address] [place] [address] Saima Amor NP 299 [facility] 419 [place] [address] 08/27/2024 3:00 PM EST Office Visit [facility] 175 [facility] 150 [place] [phone] Ayanna Jaffe MD 175 [facility] 150 [place] [phone] documented as of this encounter Goals Goal Patient Goal Type Associated Problems Recent Progress Patient-Stated? Author [facility] General No Daphne Alarcon, DIRECTOR OF RECRUITMENT Note: Pt will improve cognitive linguistic function to participate and communicate in iADLs mod I ST [facility] General No Daphne Alarcon, DIRECTOR OF RECRUITMENT Note: Pt will participate with development of personalized HEP to perform 4-5xs/wk with min assist for modifications Pt will participate in ongoing training of internal/external memory strategies and ID pertinent techniques to use in daily life independently Pt will complete auditory and visual working memory/mental flexibility tasks of 2-3 components with min cues to be 80%ac Pt will complete visual selective, alternating and divided attention tasks with min assist to be 80% documented as of this encounter Visit Diagnoses Not on filedocumented in this encounter Care Teams Graphic Pre Press Trades Worker Relationship Specialty Start Date End Date Brennan Burnett MD [address] [place] [place] [address] PCP - General 05/06/24 documented as of this encounter
--- OUTSIDE RECORDS SUMMARY | 2024-08-08 14:42 | XMS_ITS | Encounter Summary ---
Author Organization [facility] Address [address] [place] [address] Care Team Providers Care Home Office Claim Specialist Name Role Phone Victorino Martin MD Primary Care Provider UnavailSharon Kimbrough Primary Care Provider Unava ilable Brennan Burnett MD Primary Care Provider Unavailab Hayden Montes MD Unavailable [phone] Pallavi Flood NP Unavailable [phone] Caitlyn Bowie MD Primary Care Provider Unava ilable Reason for Visit * Reason Onset Date Comments Call From Md Office 06/27/2018 Encounter Details Date Type Department Care Team Description 06/27/2018 Telephone Pulmonology - [address] [place] [address] Henry Kelly MD Call From Md Office Social History Tobacco Use Types Packs/Day Years [...] encounter Miscellaneous Notes * Telephone Encounter - Daija Dale - 06/27/2018 10:38 AM EST Jerod Szymanski calling to speak to Dr. Kelly [phone] documented in this encounter Plan of Treatment Not on file documented as of this encounter Visit Diagnoses Not on filedocumented in this encounter Care Teams Home Office Claim Specialist Relationship Specialty Start Date End Date Victorino Martin MD PCP - General Internal Medicine 12/21/17 08/01/18 Sharon Vides PCP - General Internal Medicine 08/02/18 05/26/20 Brennan Burnett MD PCP - General Internal Medicine 05/27/20 12/07/21 Caitlyn Bowie MD [address] [place] [address] PCP - General Internal Medicine 12/08/21 Hayden Shah MD [address] [place], [place] [phone] Specialist Cardiovascular Disease 09/01/20 Pallavi Flood NP [address] [place], [place] [phone] Cardiology 09/01/20 documented as of this encounter
--- OUTSIDE RECORDS SUMMARY | 2024-08-08 14:42 | XMS_ITS | Encounter Summary ---
Author Organization [facility] Address [address] [place] [address] Care Team Providers Care Account Engineer Name Role Phone Caitlyn Bowie MD Primary Care Provider [phone]- [phone] Encounter Details Date Type Department Care Team (Late st Contact Info) Description 04/18/2013 Documentation Hematology Program at [address] [address] Isis Ragland RN Social History Tobacco Use Types Packs/Day [...] 1:00 PM EDT Telemedicine Cancer Center at [facility] 240 [facility] Building [address] [place], [place] [phone] Ronald Mills MD 240 [facility] [address] [place] [address] documented as of this encounter Visit Diagnoses Not on filedocumented in this encounter Additional Health Concerns Infection Onset Date Last Indicated Resolved Time COVID-19 03/05/2022 03/05/2022 03/15/2022 7:18 PM EDT documented as of this encounter Care Teams Account Engineer Relationship Specialty Start Date End Date Caitlyn Bowie MD 3400 [facility] 1 [place] [address] PCP - General Internal Medicine 05/06/21 Henry Kelly MD Pulmonary Department 175 [facility], [address] [place] [address] Physician Pulmonary Disease 09/06/17 06/22/20 documented as of this encounter
--- OUTSIDE RECORDS SUMMARY | 2024-08-08 14:42 | XMS_ITS | Patient Health Record ---
Author Organization [facility] Address [address] [place] [address] Care Team Providers Care Seat Cover Maker Name Role Phone Shruti Bowieberly Primary Care Provider Cristian Fountain Unavailable [phone] ALLERGIES Allergen (clinical drug ingredient) Drug/Non Drug Allergy documented on EMR Reaction Allergy Type Onset Date Status vancomycin Vancomycin Unknown Drug Allergy Activ e novacain (uncoded) Unknown Allergy A ctive Penicillin Unknown Drug Allergy Active gentamicin gentomycin (uncoded) Unknown Allergy Active voltarin (uncoded) Unknown Allergy A ctive erythromycin Erythromycin Unknown Drug Allergy A ctive zithromycin (uncoded) Unknown Allergy Active Substance with [...] confirmed Irritable bowel syndrome characterized by constipation (465444081) Problem Diverticulitis (K57.92) Active confirmed Diverticulitis (023061520) Problem GERD (gastroesophageal reflux disease) (K21.9) Active confirmed Gastroesophagea l reflux disease (157576791) PLAN OF TREATMENT No Information Insurance Providers Payer Name Payer Address Payer Phone Subscriber Number Group Number Insured Name Patient Relationship to Insured Coverage Start Date Coverage End Date MEDICARE OF [place] [address] [place] [address] [id number] SHIRLEY CINDA Self - patient is the insured [employer] ATTN CLAIMS [address] [place] [address] [id number] DANIEL WATSONE Self - patient is the insured MEDICAL (GENERAL) HISTORY Medical History History ICD Code PR-04/2021-sees Dr. 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 Gomes Pneumomias Hypothyroidism Surgical History Surgery Date(Month/Year) Tonsils and adenoids BOLA Lung cancer-[facility], [facility], Chemo 2008
--- OUTSIDE RECORDS SUMMARY | 2024-08-08 14:42 | XMS_ITS | Encounter Summary ---
Author Organization [facility] Address [address] [place] [address] Care Team Providers Care Manager Of Corporate Communications Name Role Phone Caitlyn Bowie MD Primary Care Provider [phone]- [phone] Encounter Details Date Type Department Care Team (Late st Contact Info) Description 12/16/2016 Scanned Document [facility] Health Information Management [address] [place] [address] External, Provider Social History Tobacco Use Types [...] EDT Telemedicine Cancer [facility] at [facility] 240 [facility] Building [address] [place], [place] [phone] Ronald Mills MD 240 [facility] [address] [place] [address] documented as of this encounter Visit Diagnoses Not on filedocumented in this encounter Additional Health Concerns Infection Onset Date Last Indicated Resolved Time COVID-19 03/05/2022 03/05/2022 03/15/2022 7:18 PM EDT documented as of this encounter Care Teams Manager Of Corporate Communications Relationship Specialty Start Date End Date Caitlyn Bowie MD 3400 [facility] 1 [place] [address] PCP - General Internal Medicine 05/06/21 Henry Kelly MD Pulmonary Department 175 [facility], [address] [place] [address] Physician Pulmonary Disease 09/06/17 06/22/20 documented as of this encounter
--- OUTSIDE RECORDS SUMMARY | 2024-08-08 14:42 | XMS_ITS | Encounter Summary ---
Author Organization [facility] Address [address] [place] [address] Care Team Providers Care Director Retail Brand Development Name Role Phone Caitlyn Bowie MD Primary Care Provider [phone]- [phone] Encounter Details Date Type Department Care Team (Late st Contact Info) Description 12/16/2016 Scanned Document [facility] Health Information Management [address] [place] [address] External, Provider Social History Tobacco Use Types [...] Cancer Center at [facility] 240 [facility] Building [address] [place], [place] [phone] Ronald Mills MD 240 [facility] [address] [place] [address] documented as of this encounter Procedures Procedure Name Priority Date/Time Associated Diagnosis Comments CARDIAC EKG RESULT SCAN Routine 12/16/2016 documented in this encounter Results * Cardiac EKG Result Scan (12/16/2016) us Provider External CV CARDIAC REPORT (CVR) Edited Result - Final documented in this encounter Visit Diagnoses Not on filedocumented in this encounter Additional Health Concerns Infection Onset Date Last Indicated Resolved Time COVID-19 03/05/2022 03/05/2022 03/15/2022 7:18 PM EDT documented as of this encounter Care Teams Director Retail Brand Development Relationship Specialty Start Date End Date Caitlyn Bowie MD 3400 [facility] 1 [place] [address] PCP - General Internal Medicine 05/06/21 Henry Kelly MD Pulmonary Department 175 [facility], [address] [place] [address] Physician Pulmonary Disease 09/06/17 06/22/20 documented as of this encounter
--- OUTSIDE RECORDS SUMMARY | 2024-08-08 14:42 | XMS_ITS | Encounter Summary ---
Author Organization [facility] Address [address] [place] [address] Care Team Providers Care Recording Studio Setup Worker Name Role Phone Caitlyn Bowie MD Primary Care Provider +1- [phone] Encounter Details Date Type Department Care Team (Late st Contact Info) Description 02/20/2017 Scanned Document [facility] Health Information Management [address] [place] [address] External, Provider Social History Tobacco Use Types [...] [facility] at [facility] 240 [facility] Building [address] [place], [place] [phone] Ronald Mills MD 240 [facility] [address] [place] [address] documented as of this encounter Procedures Procedure Name Priority Date/Time Associated Diagnosis Comments XRAY RESULT SCAN Routine 02/20/2017 documented in this encounter Results * Xray Result Scan (02/20/2017) us Provider External IMG SCAN REPORTS Final Result documented in this encounter Visit Diagnoses Not on filedocumented in this encounter Additional Health Concerns Infection Onset Date Last Indicated Resolved Time COVID-19 03/05/2022 03/05/2022 03/15/2022 7:18 PM EDT documented as of this encounter Care Teams Recording Studio Setup Worker Relationship Specialty Start Date End Date Caitlyn Bowie MD 3400 [facility] 1 [place] [address] PCP - General Internal Medicine 05/06/21 Henry Kelly MD Pulmonary Department 175 [facility], [address] [place] [address] Physician Pulmonary Disease 09/06/17 06/22/20 documented as of this encounter
--- OUTSIDE RECORDS SUMMARY | 2024-08-08 14:42 | XMS_ITS | Encounter Summary ---
Author Organization [facility] Address [address] [place] [address] Care Team Providers Care Vice President Of Instruction Name Role Phone Caitlyn Bowie MD Primary Care Provider +1- [phone] Encounter Details Date Type Department Care Team (Late st Contact Info) Description 11/26/2019 Scanned Document Cancer Center at [address] [address] External, Provider Social History Tobacco Use Types [...] 1:00 PM EDT Telemedicine Cancer Center at [facility] 240 [facility] Building [address] [place], [place] [phone] Ronald Mills MD [address] [place] [address] [address] [place] [address] documented as of this encounter Procedures Procedure Name Priority Date/Time Associated Diagnosis Comments LAB SCAN Routine 11/26/2019 documented in this encounter Results * Lab Scan (11/26/2019) us Provider External LAB BLOOD ORDERABLES Final Res ult documented in this encounter Visit Diagnoses Not on filedocumented in this encounter Additional Health Concerns Infection Onset Date Last Indicated Resolved Time COVID-19 03/05/2022 03/05/2022 03/15/2022 7:18 PM EDT Assessment Noted Time PHQ-9 Depression Total Score: 2 11/07/19 19 2:06 PM EDT documented as of this encounter Care Teams Vice President Of Instruction Relationship Specialty Start Date End Date Caitlyn Bowie MD 3400 [facility] 1 [place] [address] PCP - General Internal Medicine 05/06/21 Henry Kelly MD Pulmonary Department 175 [facility], [address] [place] [address] Physician Pulmonary Disease 09/06/17 06/22/20 documented as of this encounter
--- OUTSIDE RECORDS SUMMARY | 2024-08-08 14:42 | XMS_ITS | Encounter Summary ---
Author Organization [facility] Address [address] [place] [address] Care Team Providers Care Gasket Notcher Name Role Phone Caitlyn Bowie MD Primary Care Provider +1- [phone] Encounter Details Date Type Department Care Team (Late st Contact Info) Description 05/19/2020 Scanned Document Cancer Center at [address] [address] External, Provider Social History Tobacco Use Types [...] 1:00 PM EDT Telemedicine Cancer Center at [facility] 240 [facility] Building [address] [place], [place] [phone] Ronald Mills MD [address] [place] [address] [address] [place] [address] documented as of this encounter Procedures Procedure Name Priority Date/Time Associated Diagnosis Comments LAB SCAN Routine 05/19/2020 documented in this encounter Results * Lab Scan (05/19/2020) us Provider External LAB BLOOD ORDERABLES Final Res ult documented in this encounter Visit Diagnoses Not on filedocumented in this encounter Additional Health Concerns Infection Onset Date Last Indicated Resolved Time COVID-19 03/05/2022 03/05/2022 03/15/2022 7:18 PM EDT Assessment Noted Time PHQ-9 Depression Total Score: 2 11/07/19 19 2:06 PM EDT documented as of this encounter Care Teams Gasket Notcher Relationship Specialty Start Date End Date Caitlyn Bowie MD 3400 [facility] 1 [place] [address] PCP - General Internal Medicine 05/06/21 Henry Kelly MD Pulmonary Department 175 [facility], [address] [place] [address] Physician Pulmonary Disease 09/06/17 06/22/20 documented as of this encounter
--- OUTSIDE RECORDS SUMMARY | 2024-08-08 14:42 | XMS_ITS | Encounter Summary ---
Author Organization [facility] Address [address] [place] [address] Care Team Providers Care Shop Welder Name Role Phone Caitlyn Bowie MD Primary Care Provider +1- [phone] Encounter Details Date Type Department Care Team (Late st Contact Info) Description 09/18/2020 Scanned Document [facility] Health Information Management [address] [place] [address] External, Provider Social History Tobacco Use Types [...] PM EDT Telemedicine [facility] at [facility] 240 [facility] Building [address] [place], [place] [address] Ronald Mills MD [address] [place] [address] [address] [place] [address] documented as of this encounter Procedures Procedure Name Priority Date/Time Associated Diagnosis Comments LAB SCAN Routine 09/18/2020 documented in this encounter Results * Lab Scan (09/18/2020) us Provider External LAB BLOOD ORDERABLES Final Res ult documented in this encounter Visit Diagnoses Not on filedocumented in this encounter Additional Health Concerns Infection Onset Date Last Indicated Resolved Time COVID-19 03/05/2022 03/05/2022 03/15/2022 7:18 PM EDT Assessment Noted Time PHQ-9 Depression Total Score: 2 11/07/19 19 2:06 PM EDT documented as of this encounter Care Teams Shop Welder Relationship Specialty Start Date End Date Caitlyn Bowie MD [address] [address] PCP - General Internal Medicine 05/06/21 documented as of this encounter
--- OUTSIDE RECORDS SUMMARY | 2024-08-08 14:42 | XMS_ITS | Encounter Summary ---
Author Organization [facility] Address [address] [place] [address] Care Team Providers Care Staff Appraiser Name Role Phone Caitlyn Bowie MD Primary Care Provider +1- [phone] Encounter Details Date Type Department Care Team (Late st Contact Info) Description 12/03/2019 Scanned Document [facility] Health Information Management [address] [place] [address] External, Provider Social History Tobacco Use Types [...] 1:00 PM EDT Telemedicine Cancer Center at [facility] 240 [facility] Building [address] [place] [address] Ronald Mills MD [address] [place] [address] [address] [place] [address] documented as of this encounter Visit Diagnoses Not on filedocumented in this encounter Additional Health Concerns Infection Onset Date Last Indicated Resolved Time COVID-19 03/05/2022 03/05/2022 03/15/2022 7:18 PM EDT Assessment Noted Time PHQ-9 Depression Total Score: 2 11/07/19 19 2:06 PM EDT documented as of this encounter Care Teams Staff Appraiser Relationship Specialty Start Date End Date Caitlyn Bowie MD 3400 [facility] 1 [place] [address] PCP - General Internal Medicine 05/06/21 Henry Kelly MD Pulmonary Department 175 [facility], [address] [place] [address] Physician Pulmonary Disease 09/06/17 06/22/20 documented as of this encounter
--- OUTSIDE RECORDS SUMMARY | 2024-08-08 14:42 | XMS_ITS | Encounter Summary ---
Author Organization [facility] Address [address] [place] [address] Care Team Providers Care Billet Heater Name Role Phone Caitlyn Bowie MD Primary Care Provider +1- [phone] Encounter Details Date Type Department Care Team (Late st Contact Info) Description 01/28/2013 Scanned Document Thoracic Oncology Program at [address] [address] Solo Henry MD [address] [place] [address] Social History Tobacco Use Types Packs/Day [...] 1:00 PM EDT Telemedicine Cancer Center at [facility] 240 [facility] Building [address] [place], [place] [address] Ronald Mills MD 240 [facility] [address] [place] [address] documented as of this encounter Visit Diagnoses Not on filedocumented in this encounter Additional Health Concerns Infection Onset Date Last Indicated Resolved Time COVID-19 03/05/2022 03/05/2022 03/15/2022 7:18 PM EDT documented as of this encounter Care Teams Billet Heater Relationship Specialty Start Date End Date Caitlyn Bowie MD 3400 [facility] Max 1 [place] [address] PCP - General Internal Medicine 05/06/21 Henry Kelly MD Pulmonary Department 175 [facility], [address] [place] [address] Physician Pulmonary Disease 09/06/17 06/22/20 documented as of this encounter
--- OUTSIDE RECORDS SUMMARY | 2024-08-08 14:42 | XMS_ITS | Encounter Summary ---
Author Organization [facility] Address [address] [place] [address] Care Team Providers Care Director Of Consulting Services Name Role Phone Caitlyn Bowie MD Primary Care Provider +1- [phone] Encounter Details Date Type Department Care Team (Late st Contact Info) Description 12/16/2016 Scanned Document [facility] Health Information Management [address] [place] [address] External, Provider Social History Tobacco Use Types [...] 1:00 PM EDT Telemedicine Cancer Center at [facility] 240 [facility] Building [address] [place], [place] [phone] Ronald Mills MD 240 [facility] [address] [place] [address] documented as of this encounter Procedures Procedure Name Priority Date/Time Associated Diagnosis Comments CARDIAC MISC.?? RESULT SCAN Routine 12/16/2016 documented in this encounter Results * Cardiac Misc.?? Result Scan (12/16/2016) us Provider External CV CARDIAC REPORT (CVR) Edited Result - Final documented in this encounter Visit Diagnoses Not on filedocumented in this encounter Additional Health Concerns Infection Onset Date Last Indicated Resolved Time COVID-19 03/05/2022 03/05/2022 03/15/2022 7:1 8 PM EDT documented as of this encounter Care Teams Director Of Consulting Services Relationship Specialty Start Date End Date Caitlyn Bowie MD [address] [address] PCP - General Internal Medicine 05/06/21 Henry Kelly MD Pulmonary Department 175 [facility], [address] [place] [address] Physician Pulmonary Disease 09/06/17 06/22/20 documented as of this encounter
--- OUTSIDE RECORDS SUMMARY | 2024-08-08 14:42 | XMS_ITS | Encounter Summary ---
Author Organization [facility] and [facility] Address [address] [place] [phone] Care Team Providers Care Executive Producer Name Role Phone Caitlyn Bowie MD Primary Care Provider +1- [phone] Encounter Details Date Type Department Care Team (Late st Contact Info) Description 12/16/2016 Scanned Document [facility] Health Information Management [address] [place] [phone] External, Provider Social History Tobacco Use Types [...] Center at [facility] [address] [facility] Building [address] [place], [place] [phone] Ronald Mills MD [address] [facility] A1 [place] [address] documented as of this encounter Procedures Procedure Name Priority Date/Time Associated Diagnosis Comments PATHOLOGY/CYTOLOGY SCAN Routine 12/16/2016 documented in this encounter Results * Pathology/Cytology Scan (12/16/2016) us Provider External PATHOLOGY/CYTOLOGY ORDERABLES Edited Result - Final documented in this encounter Visit Diagnoses Not on filedocumented in this encounter Additional Health Concerns Infection Onset Date Last Indicated Resolved Time COVID-19 03/05/2022 03/05/2022 03/15/2022 7:18 PM EDT documented as of this encounter Care Teams Executive Producer Relationship Specialty Start Date End Date Caitlyn Bowie MD [facility] 1 [place] [address] PCP - General Internal Medicine 05/06/21 Henry Kelly MD Pulmonary Department 175 [facility], [address] [place] [address] Physician Pulmonary Disease 09/06/17 06/22/20 documented as of this encounter
--- OUTSIDE RECORDS SUMMARY | 2024-08-08 14:42 | XMS_ITS | Encounter Summary ---
Author Organization [facility] Address [address] [place] [address] Care Team Providers Care Equipment Validation Engineer Name Role Phone Cailtyn Bowie MD Primary Care Provider +1- [phone] Encounter Details Date Type Department Care Team (Late st Contact Info) Description 11/29/2019 Scanned Document [facility] Health Information Management [address] [place] [phone] External, Provider Social History Tobacco Use Types [...] [facility] at [facility] [address] [facility] Building [address] [place], [place] [phone] Ronald Mills MD [address] [place] [address] [address] [place] [address] documented as of this encounter Procedures Procedure Name Priority Date/Time Associated Diagnosis Comments LAB SCAN Routine 11/29/2019 documented in this encounter Results * Lab Scan (11/29/2019) us Provider External LAB BLOOD ORDERABLES Final Res ult documented in this encounter Visit Diagnoses Not on filedocumented in this encounter Additional Health Concerns Infection Onset Date Last Indicated Resolved Time COVID-19 03/05/2022 03/05/2022 03/15/2022 7:18 PM EDT Assessment Noted Time PHQ-9 Depression Total Score: 2 11/07/19 19 2:06 PM EDT documented as of this encounter Care Teams Equipment Validation Engineer Relationship Specialty Start Date End Date Caitlyn Bowie MD 3400 [facility] 1 [place] [address] PCP - General Internal Medicine 05/06/21 Henry Kelly MD Pulmonary Department 175 [facility], [address] [place] [address] Physician Pulmonary Disease 09/06/17 06/22/20 documented as of this encounter
--- OUTSIDE RECORDS SUMMARY | 2024-08-08 14:42 | XMS_ITS | Encounter Summary ---
Author Organization [facility] and [facility] Address [address] [place] [address] Care Team Providers Care Aoc Operations Intelligence Officer Name Role Phone Caitlyn Bowie MD Primary Care Provider +1- [phone] Encounter Details Date Type Department Care Team (Late st Contact Info) Description 01/22/2020 Scanned Document Lab for [facility] [address] [place] [address] Kerwin Menjivar MD 260 [facility] 3 [place] [address] Social History Tobacco Use Types Packs/Day Years [...] 1:00 PM EDT Telemedicine Cancer Center at [address] [place] [address] Ronald Mills MD 240 [facility] [address] [place] [address] documented as of this encounter Visit Diagnoses Not on filedocumented in this encounter Additional Health Concerns Infection Onset Date Last Indicated Resolved Time COVID-19 03/05/2022 03/05/2022 03/15/2022 7:18 PM EDT Assessment Noted Time PHQ-9 Depression Total Score: 2 11/07/19 19 2:06 PM EDT documented as of this encounter Care Teams Aoc Operations Intelligence Officer Relationship Specialty Start Date End Date Caitlyn Bowie MD [address] [address] PCP - General Internal Medicine 05/06/21 Henry Kelly MD Pulmonary Department [address] [place] [address], [address] [place] [address] Physician Pulmonary Disease 09/06/17 06/22/20 documented as of this encounter
--- OUTSIDE RECORDS SUMMARY | 2024-08-08 14:42 | XMS_ITS | Encounter Summary ---
Author Organization [facility] and [facility] Address [address] [place] [phone] Care Team Providers Care Drier Operator Name Role Phone Caitlyn Bowie MD Primary Care Provider +1- [phone] Encounter Details Date Type Department Care Team (Late st Contact Info) Description 09/16/2020 Scanned Document [facility] Health Information Management [address] [place] [phone] External, Provider Social History Tobacco Use Types [...] [facility] at [facility] 240 [facility] Building [address] [place], [place] [phone] Ronald Mills MD [address] [place] [address] [address] [place] [address] documented as of this encounter Procedures Procedure Name Priority Date/Time Associated Diagnosis Comments NUC MED/PET RESULT SCAN Routine 09/16/2020 documented in this encounter Results * Nuc Med/PET Result Scan (09/16/2020) us Provider External IMG SCAN REPORTS Final Result documented in this encounter Visit Diagnoses Not on filedocumented in this encounter Additional Health Concerns Infection Onset Date Last Indicated Resolved Time COVID-19 03/05/2022 03/05/2022 03/15/2022 7:18 PM EDT Assessment Noted Time PHQ-9 Depression Total Score: 2 11/07/19 19 2:06 PM EDT documented as of this encounter Care Teams Drier Operator Relationship Specialty Start Date End Date Caitlyn Bowie MD [address] [address] PCP - General Internal Medicine 05/06/21 documented as of this encounter
--- OUTSIDE RECORDS SUMMARY | 2024-08-08 14:42 | XMS_ITS | Encounter Summary ---
Author Organization [facility] and [facility] Address [address] [place] [address] Care Team Providers Care Trading Floor Operator Name Role Phone Caitlyn Bowie MD Primary Care Provider +1- [phone] Encounter Details Date Type Department Care Team (Late st Contact Info) Description 12/16/2016 Scanned Document [facility] Health Information Management [address] [place] [phone] External, Provider Social History Tobacco Use Types [...] at [facility] 240 [facility] Building [address] [place], [place] [phone] Ronald Mills MD 240 [facility] [address] [place] [address] documented as of this encounter Procedures Procedure Name Priority Date/Time Associated Diagnosis Comments LAB SCAN Routine 12/16/2016 documented in this encounter Results * Lab Scan (12/16/2016) Blood specimen (specimen) us Provider External LAB BLOOD ORDERABLES Final Res ult documented in this encounter Visit Diagnoses Not on filedocumented in this encounter Additional Health Concerns Infection Onset Date Last Indicated Resolved Time COVID-19 03/05/2022 03/05/2022 03/15/2022 7:1 8 PM EDT documented as of this encounter Care Teams Trading Floor Operator Relationship Specialty Start Date End Date Caitlyn Bowie MD 3400 [facility] 1 [place] [address] PCP - General Internal Medicine 05/06/21 Henry Kelly MD Pulmonary Department 175 [facility], [address] [place] [address] Physician Pulmonary Disease 09/06/17 06/22/20 documented as of this encounter
--- OUTSIDE RECORDS SUMMARY | 2024-08-08 14:43 | XMS_ITS | Encounter Summary ---
Author Organization [facility] and [facility] Address [address] [place] [address] Care Team Providers Care Rack Cleaner Name Role Phone Caitlyn Bowie MD Primary Care Provider +1- [phone] Encounter Details Date Type Department Care Team (Late st Contact Info) Description 03/01/2017 Scanned Document Onco-Oncology Program at [address] [place] [address] Norma Renee MD [address] [place] [address] 2 [place] [phone] Social History Tobacco Use Types Packs/Day Years [...] 1:00 PM EDT Telemedicine Cancer Center at [address] [place] [address] Ronald Mills MD 240 [facility] A1 [place] [address] documented as of this encounter Visit Diagnoses Not on filedocumented in this encounter Additional Health Concerns Infection Onset Date Last Indicated Resolved Time COVID-19 03/05/2022 03/05/2022 03/15/2022 7:18 PM EDT documented as of this encounter Care Teams Rack Cleaner Relationship Specialty Start Date End Date Caitlyn Bowie MD 3400 [facility] [address] 1 [place] [address] PCP - General Internal Medicine 05/06/21 Henry Kelly MD Pulmonary Department 175 [facility], [address] [place] [address] Physician Pulmonary Disease 09/06/17 06/22/20 documented as of this encounter
--- OUTSIDE RECORDS SUMMARY | 2024-08-08 14:43 | XMS_ITS | Encounter Summary ---
Author Organization [facility] and [facility] Address [address] [place] [address] Care Team Providers Care Caustic Liquor Maker Name Role Phone Caitlyn Bowie MD Primary Care Provider +1- [phone] Encounter Details Date Type Department Care Team (Late st Contact Info) Description 07/01/2019 Scanned Document Onco-Oncology Program at [address] [place] [address] Nomra Renee MD [address] [place] [address] 2 [place] [phone] Social History Tobacco Use Types Packs/Day Years [...] 1:00 PM EDT Telemedicine Cancer Center at [address] [place], [place] [phone] Ronald Mills MD 240 [facility] A1 [place] [address] documented as of this encounter Visit Diagnoses Not on filedocumented in this encounter Additional Health Concerns Infection Onset Date Last Indicated Resolved Time COVID-19 03/05/2022 03/05/2022 03/15/2022 7:18 PM EDT Assessment Noted Time PHQ-9 Depression Total Score: 2 11/07/19 19 2:06 PM EDT documented as of this encounter Care Teams Caustic Liquor Maker Relationship Specialty Start Date End Date Caitlyn Bowie MD 3400 [facility] 1 [address] PCP - General Internal Medicine 05/06/21 Henry Kelly MD Pulmonary Department 175 [facility], [address] [address] Physician Pulmonary Disease 09/06/17 06/22/20 documented as of this encounter
--- OUTSIDE RECORDS SUMMARY | 2024-08-08 14:43 | XMS_ITS | Encounter Summary ---
Author Organization [facility] Address [address] [place] [address] Care Team Providers Care Ceramist Name Role Phone Cristofer Hope MD Primary Care Provider Maria GuadalupevaVictorino Negrete MD Primary Care Provider Unavaila Sharon Rios Primary Care Provider Unava ilable Brennan Burnett MD Primary Care Provider Unavailab Hayden Montes MD Unavailable [phone] Pallavi Flood NP Unavailable [phone]- [phone] Caitlyn Bowie MD Primary Care Provider Unava ilable Reason for Visit * Reason Onset Date Comments Medication 10/26/2017 Encounter Details Date Type Department Care Team Description 10/26/2017 Telephone Pulmonology - [address] [place] [address] Leslie Caro NP Medication Social History Tobacco Use Types Packs/Day Years Used Date Smoking Tobacco: Never Physical Activity Answer Date Recorded On average, [...] encounter Miscellaneous Notes * Telephone Encounter - Megan Kae - 10/26/2017 9:40 AM EDT Pharmacist Mat from [facility] said that they are not carrying Ephinephrine 0.3mg/0.30ml in the brand her insurance pays for he said to call [phone] [facility] [id number] ifTfareed can expatiated this documented in this encounter Plan of Treatment Not on file documented as of this encounter Visit Diagnoses Not on filedocumented in this encounter Care Teams Ceramist Relationship Specialty Start Date End Date Cristofer Hope MD PCP - General Internal Medicine 05/16/17 12/20/17 Victorino Martin MD PCP - General Internal Medicine 12/21/17 08/01/18 Sharon Vides PCP - General Internal Medicine 08/02/18 05/26/20 Brennan Burnett MD PCP - General Internal Medicine 05/27/20 12/07/21 Caitlyn Bowie MD [address] [place] [address] PCP - General Internal Medicine 12/08/21 Hayden Shah MD [address] [place] [address] Specialist Cardiovascular Disease 09/01/20 Pallavi Flood NP [address] [place] [address] Cardiology 09/01/20 documented as of this encounter
--- OUTSIDE RECORDS SUMMARY | 2024-08-08 14:43 | XMS_ITS | Patient Health Record ---
Author Organization [facility] Address [address] [facility] [address] [place] [address] Care Team Providers Care Security Nurse Name Role Phone EVELIN RAMSAY Primary Care Provider Yenny Hou Unavailable [phone] Allergies Allergen (clinical drug ingredient) Drug/Non Drug Allergy documented on EMR Reaction Allergy Type Onset Date Status IVP DYE (uncoded) Shock Allergy Ac tive MUSCLE RELAXERS (uncoded) Shock Allergy Active moxifloxacin Avelox Shock Drug Allergy Acti ve BIAXIN Shock Drug Allergy Active ciprofloxacin Cipro Unknown Drug Allergy Act esmer erythromycin ERYTHROMYCIN Shock Drug Allergy A ctive metronidazole Flagyl Unknown Drug Allergy Act esmer Gastrografin Unknown Drug Allergy Acti ve gentamicin GENTAMICIN SULFATE Shock Drug Allergy Active LEVAQUIN MALAISE Drug Allergy Active Novocain Increased Heart Rate Drug Allergy Active vancomycin VANCOMYCIN HCL Shock Drug Allergy A ctive VOLTAREN Shock Drug Allergy Active azithromycin ZITHROMAX Shock Drug Allergy Acti ve avanafil Avanafil Shock Drug Allergy Active Penicillin Shock Drug Allergy Active Substance with sulfonamide structure and antibacterial mechanism of action (substance) Sulfa Antibiotics Skin Rash Drug Allergy Active Results Component Value Reference Range Notes PDF Report Reviewed date:05/04/2024 11:35:04 PM Interpretation: Performing Lab:[facility], [address] [facility], Phone - [phone], Director - Arely Notes/Report: Urine Culture, Routine-[id number] Reviewed date:05/04/2024 11:35:22 PM Interpretation: Performing Lab:[facility], [address] [facility], [place], Phone - [phone], Director - Arely Notes/Report: Urine Culture, Routine Final report Result 1 Culture shows less than 10,000 colony forming units of bacteria per milliliter of urine. This colony count is not generally considered to be clinically significant. Urinalysis, Complete-[id number] Reviewed date:05/04/2024 11:35:42 PM Interpretation: Performing Lab:[facility], [address], [place], Phone - [phone], Director - Arely Notes/Report: Specific [place] 1.009 1.005-1.030 pH 6.5 5.0-7.5 Urine-Color Yellow Yellow Appearance Clear Clear WBC Esterase Negative Negative Protein Negative Negative/Trace Glucose Negative Negative Ketones Negative Negative Occult Blood Negative Negative Bilirubin Negative Negative Urobilinogen,Semi-Qn 0.2 0.2-1.0 mg/dL Nitrite, Urine Negative Negative Microscopic Examination Micr oscopic follows if indicated. Microscopic Examination See below: Micr oscopic was indicated and was performed. WBC None seen 0 - 5 /hpf RBC None seen 0 - 2 /hpf Epithelial Cells (non renal) None seen 0 - 10 /hpf Casts None seen None seen /lpf Bacteria None seen None seen/Few Urinalysis Reviewed date:05/03/2024 04:40:26 PM Interpretation: Performing Lab: Notes/Report: NITRITE Neg PH 6.0 PROTEIN Neg S.G 1.010 WBC Neg GLUCOSE Neg KETONES Neg UROBILINOGEN Neg BILIRUBIN Neg BLOOD Neg Urinalysis Reviewed date:07/09/2024 11:03:01 AM Interpretation: Performing Lab: Notes/Report: NITRITE NEG PH 6.0 PROTEIN TR S.G 1.015 WBC NEG GLUCOSE NEG KETONES NEG UROBILINOGEN NEG BILIRUBIN NEG BLOOD NEG Reason For Referral No Information Medications Medication SIG (Take, Route, Frequency, Duration) Notes Start Date End Date Status Advair HFA 230-21G/ACT 2 Inhalation tw ice daily for -3 06/10/2014 Active Estradiol 10 MCG 1 tablet Vaginal Two times a Week for 90 days 07/09/2024 Active EpiPen Active Clindamycin Phosphate 2 % 1 application at bedtime Vaginal EVERY NIGHT for 7 days 07/09/2024 Active Rosuvastatin Calcium 05/03/2024 Active predniSONE 2.5 MG Oral for 30 Active Cefpodoxime Proxetil 200 MG 1 tablet with food Orally every 12 hrs for 14 day(s) 05/13/2024 Not-Taking Metoprolol Succinate ER 50 MG 1 tablet Orally Once a day Active coumadin 1 tab Oral scaled Ac tive Synthroid 25MCG 1 ORAL daily for -3 [facility] 06/10/2014 Active ZyrTEC Allergy 10MG 1 ORAL daily for -3 06/10/2014 Active Furosemide 20 MG TAKE ONE TABLET BY MOUTH EVERY DAY NEEDED FOR LEG SWELLING Oral for 90 Active Vitamin C 500 MG as directed Orally Active Singulair 10 MG 1 tablet Orally Once a day Active Azelastine HCl 0.15 % TWO SPRAYS INTO EA CH NOSTRIL TWO TIMES A DAY Nasal for 25 Active Potassium Active traZODone HCl 50MG 1 ORAL at bedtime fo r -3 [facility] 06/10/2014 Active Meclizine HCl 25 MG 1 tablet as needed Orally [facility] 06/10/2014 Active Albuterol Sulfate (2.5 MG/3ML)0.083% Inhalation 4 x a day prn 06/10/2014 Active Valium 5MG 1 tablet as needed O RAL at bedtime, 1/2 tab prn during the day [facility] 06/10/2014 Active Social History Tobacco Use: Social History Observation Description Date Details (start date - stop date) Never Smoker NA - NA Sexual History Question Answer Notes Had sex in the past 12 months (vaginal, oral, or anal)? No AUDIT-C (Standard) Question Answer Notes Did you have a drink containing alcohol in the p ast year? 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 SEXUAL ACTIVITY: not sexually active .CE: Smoking: Never a smoker .CE: ALCOHOL: none ILLICIT DRUGS: no, h/o ativan dependency Problems Problem Type SNOMED Code ICD Code Onset Dates Problem Status W/U Status Risk Notes Problem Postmenopausal atrophic vaginitis (15187791) Postmenopausal atrophic vaginitis (N95.2) Active confirmed Problem Age-related osteoporosis (964581786) Age-related osteoporosis without current pathological fracture (M81.0) Active confirmed Problem Urgent desire to urinate (73358843) Urgency of urination (R39.15) Active confirmed Problem 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 Problem Chronic systolic heart failure (229677713) Chronic systolic (congestive) heart failure (I50.22) Active confirmed Problem Chronic obstructive pulmonary disease (99098476) Chronic obstructive pulmonary disease, unspecified (J44.9) Active confirmed Problem Functional urinary incontinence (579512198) Functional 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) Active confirmed Problem Personal history of primary malignant neoplasm of bronchus (212827204) 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) Active confirmed Vital Signs Temperature 97.7 degrees Fahrenheit 07/18/2024 Blood pressure diastolic 62 mm Hg 07/18/2024 Height 63 in 07/18/2024 Blood pressure systolic 102 mm Hg 07/18/2024 Weight 126 lbs 07/18/2024 BMI 22.32 kg/m2 07/18/2024 Encounters Encounter Location Date Provider Diagnosis [facility] [address] [address] 05/03/2024 Yenny Elizalde Urgency of urination R39.15 and Abscess of vulva N76.[address] [address] 05/10/2024 Yenny Elizalde Abscess of vulva N76 .[address] [address] 05/17/2024 Yenny Elizalde Abscess of vulva N76 .[address] [address] 07/09/2024 Yenny Elizalde Urgency of urination R39.15 ; Acute vaginitis N76.0 and Postmenopausal atrophic vaginitis N95.[address] [address] 07/18/2024 Yennydorothy Lovettva Encounter for screening mammogram for malignant neoplasm of breast Z12.31 and Mastodynia N64.[address] [address] 05/10/2024 Yenny Elizalde [facility] [address] [address] 05/13/2024 Yenny Elizalde [facility] [address] [place] [address] 06/11/2024 Yenny Roweueva Assessments Encounter Date Diagnosis (ICD Code) Assessment Notes Treatment Notes Treatment Clinical Notes Section Notes 05/03/2024 Urgency of urination (ICD-10 - R39.15) OFFICIAL UA AND URINE C/S 05/10/2024 Abscess of vulva (ICD-10 - N76.4) CLEANED AREA WIT YPDROGEN PEROXIDE AND TRIED TO GET MUCH EXUDATE OUT POSSIBLE. CONTINUE ANTIBIOTICS. WILL REFER TO INFECTIOUS DISEASE SECTION FOR ANTIBIOTIC COVERAGE. DETAILED INSTRUCTIONS ON HOW TO CLEAN AND DRESS WOUND WERE GIVEN. 05/17/2024 Abscess of vulva (ICD-10 - N76.4) REASSURED PAT THAT THE ABSCESS HAS RESOLVED. D/C ANTIBIOTICS. LOOSE COTTON UNDERWEAR. CALL IMMEDIATELY IF SHE HAS OTHER LESIONS IN THE FUTURE. 07/09/2024 Urgency of urination (ICD-10 - R39.15) 07/18/2024 Encounter for screening mammogram for malignant neoplasm of breast (ICD-10 - Z12.31) REGULAR MAMMOGRAMS AND SBE'S WERE RECOMMENDED. 07/09/2024 Acute vaginitis (ICD-10 - N76.0) DISCUSSED FINDINGS, DX AND TX OPTIONS. PAT IS ALLERGIC TO A LOT OF MEDICATIONS INCLUDING METRONIDAZOLE. SHE WILL APPLY A SMALL AMOUNT OF CLINDAMYCIN CREAM ON HER INNER ARM FOR A FEW DAYS TO MAKE SURE SHE IS NOT ALLERGIC TO THIS. RX AND DETAILED INSTRUCTIONS FOR CLINDAMYCIN WERE GIVEN. SHE UNDERSTANDS AND ACCEPTS BENEFITS AND RISKS OF THIS TX. RECURRENT NATURE OF BV WAS EMPHASIZED. 07/18/2024 Mastodynia (ICD-10 - N64.4) REASSURED PAT THAT BREAST EXAM TODAY WAS ENTIRELY NORMAL. SHE HAS LARGE PENDULOUS BREASTS AND SHE MAY NOT BE WEARING A WELL SUPPORTIVE BRA. ADVISED HER TO GET FITTED WITH GOOD PAIRS OF BRAS. WEAR A LOOSE BRA TO BED. IBUPROFEN OR ACETAMINOPHEN PRN. 05/03/2024 Abscess of vulva (ICD-10 - N76.4) DISCUSSED FINDINGS, DX AND TX OPTIONS WITH THE PAT. SHE IS ALLERGIC TO MOST ANTIBIOTICS AND HAS OTHER MEDICAL ISSUES. [facility] CALLED [facility] AND DISCUSSED THIS PAT. THEY AGREED TO SEE HER AND MANAGE HER CASE. 07/09/2024 Postmenopausal atrophic vaginitis (ICD-10 - N95.2) DISCUSSED VAGINAL ATROPHY INCREASING HER RISK OF BV RECURRENCE. RECOMMENDED SHE USE INTRAVAGINAL ESTROGEN AND SHE AGREED. RX AND INSTRUCTIONS FOR ESTRADIOL TABS 10 MG WERE GIVEN. Plan Of Treatment Pending Test Test Name Order Date Urinalysis 07/01/2019 COMPLETE URINALYSIS 12/16/2019 URINE CULTURE 10/08/2018 URINE CULTURE 12/16/2019 MM Digital Mammo Screening 07/18/2024 Insurance Providers Payer Name Payer Address Payer Phone Subscriber Number Group Number Insured Name Patient Relationship to Insured Coverage Start Date Coverage End Date MEDICARE [address] VEDA NIEVES [id number] CINDA WATSON Self - patient is the insured [employer] [address] [place] [address] [phone] [id number] CINDA WATSON Self - patient is the insured Medical (General) History Medical History History ICD Code Other asthma J45.998 Cardiac murmur, unspecified R01.1 Epilepsy, unspecified, intractable, with out status epilepticus G40.919 Right Breast Fibroid Lung Cancer 2008 Postmenopausal atrophic vaginitis N95.2 Age-related osteoporosis without current pathological fracture M81.0 Functional urinary incontinence R39.81 Cutaneous abscess of buttock L02.31 Hereditary deficiency of other clotting factors D68.2 Age-related osteoporosis without current pathological fracture M81.0 Cutaneous abscess of buttock L02.31 Sebaceous cyst L72.3 Pelvic Pain R10.2 Urgency of urination R39.15 Frequency of micturition R35.0 Essential (primary) hypertension I10 Chronic systolic (congestive) heart fail ure I50.22 Chronic obstructive pulmonary disease, u nspecified J44.9 Abscess of vulva N76.4 Surgical History Surgery Date(Month/Year) Hysterectomy 1977 Tonsillectomy/Adendoidectomy Colonoscopy Right Breast Fibroid Removed Left Lower Lung Lobectomy, Lung Cancer 2 009 [facility]cise Hematoma, Adrenal Issues Hospitalization History Reason Date(Month/Year) See Surgical Hx Pneumonia, Hematosis, Blood Clots Respiratory Failure 2 Vaginal Deliveries DVT at 33
--- OUTSIDE RECORDS SUMMARY | 2024-08-08 14:43 | XMS_ITS | Encounter Summary ---
Author Organization [facility] Address [address] [place] [address] Care Team Providers Care Jelly Maker Name Role Phone Caitlyn Bowie MD Primary Care Provider +1- [phone] Encounter Details Date Type Department Care Team (Late st Contact Info) Description 04/27/2017 Scanned Document [facility] Health Information Management [address] [place] [address] External, Provider Social History Tobacco Use Types [...] 1:00 PM EDT Telemedicine Cancer Center at [facility] [address] [facility] [address] [place], [place] [id number] Ronald Mills MD [address] [facility] [address] [place] [address] documented as of this encounter Visit Diagnoses Not on filedocumented in this encounter Additional Health Concerns Infection Onset Date Last Indicated Resolved Time COVID-19 03/05/2022 03/05/2022 03/15/2022 7:18 PM EDT documented as of this encounter Care Teams Jelly Maker Relationship Specialty Start Date End Date Caitlyn Bowie MD [address] [facility] 1 [place] [address] PCP - General Internal Medicine 05/06/21 Henry Kelly MD Pulmonary Department [address] [facility] [place] [address] Physician Pulmonary Disease 09/06/17 06/22/20 documented as of this encounter
--- OUTSIDE RECORDS SUMMARY | 2024-08-08 14:43 | XMS_ITS | Encounter Summary ---
Author Organization [facility] and [facility] Address [address] [place] [address] Care Team Providers Care Cocoa Powder Mixer Operator Name Role Phone Caitlyn Bowie MD Primary Care Provider +1- [phone] Encounter Details Date Type Department Care Team (Late st Contact Info) Description 04/26/2017 Scanned Document Cardiovascular Medicine at [address] [place] [address] Norma Renee MD [address] [place] [phone] Social History Tobacco Use Types Packs/Day Years [...] PM EDT Telemedicine Cancer Center at [address] [place], [place] [id number] Ronald Mills MD [address] [place] [address] [address] [place] [address] documented as of this encounter Visit Diagnoses Not on filedocumented in this encounter Additional Health Concerns Infection Onset Date Last Indicated Resolved Time COVID-19 03/05/2022 03/05/2022 03/15/2022 7:18 PM EDT documented as of this encounter Care Teams Cocoa Powder Mixer Operator Relationship Specialty Start Date End Date Caitlyn Bowie MD [address] [facility] 1 [place] [address] PCP - General Internal Medicine 05/06/21 Henry Kelly MD Pulmonary Department [address] [facility], [address] [place] [address] Physician Pulmonary Disease 09/06/17 06/22/20 documented as of this encounter
--- OUTSIDE RECORDS SUMMARY | 2024-08-08 14:43 | XMS_ITS | Encounter Summary ---
Author Organization [facility] Address [address] [place] [address] Care Team Providers Care Grievance And Appeals Specialist Name Role Phone Victorino Martin MD Primary Care Provider Sharon Odonnell Primary Care Provider Brennan Castro MD Primary Care Provider Unavailab Hayden Montes MD Unavailable Pallavi Flood NP Unavailable +1- [phone] Caitlyn Bowie MD Primary Care Provider Johnathon shaver Encounter Details Date Type Department Care Team Description 02/06/2018 Telephone Pulmonology - [address] [place] [address] Henry Kelly MD Social History [...] Miscellaneous Notes * Telephone Encounter - Megan Anne'Yoliezeke - 02/06/2018 10:45 AM EDT Opened in error documented in this encounter Plan of Treatment Not on file documented as of this encounter Visit Diagnoses Not on filedocumented in this encounter Care Teams Grievance And Appeals Specialist Relationship Specialty Start Date End Date Victorino Martin MD PCP - General Internal Medicine 12/21/17 08/01/18 Sharon Vides PCP - General Internal Medicine 08/02/18 05/26/20 Brennan Burnett MD PCP - General Internal Medicine 05/27/20 12/07/21 Caitlyn Bowie MD [address] [place] [address] PCP - General Internal Medicine 12/08/21 Hayden Shah MD [address] [place] [address] Specialist Cardiovascular Disease 09/01/20 Pallavi Flood NP [address] [place] [address] Cardiology 09/01/20 documented as of this encounter
--- OUTSIDE RECORDS SUMMARY | 2024-08-08 14:43 | XMS_ITS | Encounter Summary ---
Author Organization [facility] and [facility] Address [address] [place] [address] Care Team Providers Care Mutuel Teller Name Role Phone Caitlyn Bowie MD Primary Care Provider +1- [phone] Encounter Details Date Type Department Care Team (Late st Contact Info) Description 04/26/2017 Scanned Document Cardiovascular Medicine at [address] [place] [address] System, Provider Not In Social History Tobacco [...] at [facility] [address] [facility] [address] [place], [place] [id number] Ronald Mills MD [address] [facility] [address] [place] [address] documented as of this encounter Procedures Procedure Name Priority Date/Time Associated Diagnosis Comments CARDIAC ECHO RESULT SCAN Routine 04/13/2017 EKG Routine 02/20/2017 documented in this encounter Results * Cardiac Echo Result Scan (04/13/2017) us Roshan Ríos MD CV CARDIAC REPORT (CVR) Final Result * EKG (02/20/2017) us Provider Not In System ECG ORDERABLES Final Res ult documented in this encounter Visit Diagnoses Not on filedocumented in this encounter Additional Health Concerns Infection Onset Date Last Indicated Resolved Time COVID-19 03/05/2022 03/05/2022 03/15/2022 7:18 PM EDT documented as of this encounter Care Teams Mutuel Teller Relationship Specialty Start Date End Date Caitlyn Bowie MD [address] [facility] [address] [place] [address] PCP - General Internal Medicine 05/06/21 Henry Kelly MD Pulmonary Department [address] [facility] [place] [address] Physician Pulmonary Disease 09/06/17 06/22/20 documented as of this encounter
--- OUTSIDE RECORDS SUMMARY | 2024-08-08 14:43 | XMS_ITS | Encounter Summary ---
Author Organization [facility] Address [address] [place] [address] Care Team Providers Care Chronic Specialist Name Role Phone Caitlyn Bowie MD Primary Care Provider +1- [phone] Encounter Details Date Type Department Care Team (Late st Contact Info) Description 07/26/2012 Abstract [facility] Health Information Management [address] [place] [address] [place], Primary Care [address] [place] [address] Social History Tobacco Use Types Packs/Day Years Used Date Smoking Tobacco: Never Assessed Comments Unknown Sex and Gender Information Value Date Recorded Sex Assigned at Not on file Legal Sex Female 7:29 AM EST Gender Identity Not on file Sexual Orientation Not on file documented as of this encounter Last Filed Vital Signs Vital Sign Reading Time Taken Comments Blood Pressure - - Pulse - - Temperature - - Respiratory Rate - - Oxygen Saturation - - Inhaled Oxygen Concentration - - Weight 71.2 kg (156 lb 15.5 oz) 012 12:01 AM EST Height 160.5 cm (5' 3.19 ) 05/10/2011 1 2:01 AM EDT Body Mass Index 27.64 05/10/2011 12:01 AM EDT documented in this encounter Plan of Treatment Upcoming Encounters Date Type Department Care Team (Late st Contact Info) Description 10/31/2024 1:00 PM EDT Telemedicine Cancer Center at [address] [place], [place] [id number] Ronald Mills MD [address] [place] [address] documented as of this encounter Visit Diagnoses Not on filedocumented in this encounter Additional Health Concerns Infection Onset Date Last Indicated Resolved Time COVID-19 03/05/2022 03/05/2022 03/15/2022 7:18 PM EDT documented as of this encounter Care Teams Chronic Specialist Relationship Specialty Start Date End Date Caitlyn Bowie MD [address] [facility] 1 [place] [address] PCP - General Internal Medicine 05/06/21 Henry Kelly MD Pulmonary Department [address] [facility], [address] [place] [address] Physician Pulmonary Disease 09/06/17 06/22/20 documented as of this encounter
--- OUTSIDE RECORDS SUMMARY | 2024-08-08 14:43 | XMS_ITS | Encounter Summary ---
Author Organization [facility] and [facility] Address [address] [place] [address] Care Team Providers Care Coffee Bar Attendant Name Role Phone Caitlyn Bowie MD Primary Care Provider +1- [phone] Encounter Details Date Type Department Care Team (Late st Contact Info) Description 02/21/2017 Scanned Document [facility] Health Information Management [address] [place] [address] External, Provider Social History Tobacco Use Types [...] Cancer Center at [facility] [address] [facility] [address] [place], [place] [id number] Ronald Mills MD [address] [facility] [address] [place] [address] documented as of this encounter Procedures Procedure Name Priority Date/Time Associated Diagnosis Comments CT RESULT SCAN Routine 02/21/2017 documented in this encounter Results * CT Result Scan (02/21/2017) us Provider External IMG SCAN REPORTS Final Result documented in this encounter Visit Diagnoses Not on filedocumented in this encounter Additional Health Concerns Infection Onset Date Last Indicated Resolved Time COVID-19 03/05/2022 03/05/2022 03/15/2022 7:18 PM EDT documented as of this encounter Care Teams Coffee Bar Attendant Relationship Specialty Start Date End Date Caitlyn Bowie MD [address] [facility] [address] [place] [address] PCP - General Internal Medicine 05/06/21 Henry Kelly MD Pulmonary Department [address] [facility], [address] [place] [address] Physician Pulmonary Disease 09/06/17 06/22/20 documented as of this encounter
--- OUTSIDE RECORDS SUMMARY | 2024-08-08 14:43 | XMS_ITS | Clinical Summary ---
Author Organization [address] Address [address] [place] [address] Phone Care Team Providers Care Distribution Center Manager Name Role Phone Caitlyn Bowie MD Primary Care Provider [phone]- [phone] Allergies Active Allergy Reactions Criticality Noted Date Comments Amlodipine Other (See Comments) Medium 11/23/2020 flushing Avocado (Laurus Persea) Resp Distress High 3 Barium Iodide Throat Closes High 01/19/2016 Bee Pollen Resp Distress 04/15/2013 Allergic to bee stings Ciprofloxacin Medium 08/26/2014 Patient reported that she couldn't walk Clarithromycin Shortness Of Breath,Rash High 11/07/2012 Diclofenac Shortness Of Breath,Rash High 11/07/2012 Erythromycin Shortness Of Breath,Rash High 11/07/2012 Metronidazole Hcl Resp Distress High 10/17/2014 Visual changes, back pain, weakness Diatrizoate Shiloh-Diatrizoat Sod Swelling High 09/23/2015 Throat tightness Gentamicin Shortness Of Breath,Rash High 11/07/2012 Iodinated Contrast Media Shortness Of Breath,Rash High 11/07/2012 Isosorbide Mononitrate Headache 11/23/2020 Levofloxacin Other (See Comments) Medium 06/25/2013 painful tight joints Mold Extracts Resp Distress High 04/15/2013 Morphine Other (See Comments) Medium 09/26/2014 Flushed, almost passed out Moxifloxacin Shortness Of Breath,Rash High 11/07/2012 Procaine Unknown 01/19/2016 Other Mental Status Change 04/15/2013 Some muscle relaxers Penicillins Shortness Of Breath,Rash High 11/07/2012 Shrimp Itching,Cough Medium 12/16/2018 Sulfa (Sulfonamide Antibiotics) Shortness Of Breath,Rash High 11/07/2012 Vancomycin 01/19/2016 Vancomycin Analogues Shortness Of Breath,Rash High 11/07/2012 Diclofenac Sodium Unknown 09/26/2014 Medications fluticasone-salmete rol (ADVAIR HFA) 230-21 mcg/actuation inhaler Inhale 2 puffs into the lungs 2 (two) times daily. Active meclizine (ANTIVERT) 25 MG tablet Take 1 tablet (25 mg total) by mouth 3 (three) times daily as needed. Active SYNTHROID 25 mcg tablet Take 1 tablet by mouth 5 days a week and 2 tablets 2 days a week 01/09/20 13 Active montelukast (SINGULAIR) 10 mg tablet Take 1 tablet (10 mg total) by mouth nightly. Active cetirizine (ZYRTEC) 10 MG tabletIndications:a llergic rhinitis Take 1 tablet (10 mg total) by mouth daily. Active diazepam (VALIUM) 5 MG tablet Take 1 tablet (5 mg total) by mouth nightly as needed for anxiety. Active iron polysaccharides (NIFEREX) 150 mg iron capsule Take 150 mg by mouth 2 (two) times daily. Active EPIPEN 2-KORI 0.3 mg/0.3 mL (1:1,000) AtIn 0.3 mg once as needed. 09/16/19 16 Active traZODone (DESYREL) 50 MG tablet take 1 to 2 tablets by mouth at bedtime 6 01/06/20 16 Active magnesium oxide 500 mg Cap Take 500 mg by mouth daily. Active docusate sodium (COLACE) 100 MG capsule Take 2 capsules (200 mg total) by mouth 2 (two) times daily. Active ASCORBATE CALCIUM (VITAMIN C ORAL) Take 1,000 mg by mouth daily On occasion. Active albuterol (PROVENTIL, VENTOLIN) 2.5 mg /3 mL (0.083 %) nebulizer solution Inhale 1 vial into the lungs every 4 (four) hours as needed.. Active albuterol (PROVENTIL HFA) 90 mcg/actuation HFA inhaler Inhale 2 puffs into the lungs every 4 (four) hours as needed. Active clindamycin (CLEOCIN) 150 MG capsule TAKE FOUR CAPSULES BY MOUTH ONE HOUR PRIOR TO APPOINTMENT 1 06/14/20 17 Active furosemide (LASIX) 20 MG tablet Take 1 tablet (20 mg total) by mouth daily as needed.. 30 tablet 5 08/07/19 18 Active Additional Information Patient taking differently: 40 mgOral DAILY PRN, Reported on 11/01/2022 omeprazole (PRILOSEC) 40 MG capsule Take 1 capsule (40 mg total) by mouth daily. 12/22/19 18 Active cholecalciferol, vitamin D3, 125 mcg (5,000 unit) tablet Take 1 tablet (5,000 Units total) by mouth daily. Active Bacillus coagulans (PROBIOTIC, B. COAGULANS, ORAL) Take 1 capsule by mouth daily Active warfarin (COUMADIN) 3 MG tablet Take 3 mg by mouth Daily @1800 Monday, Monday, and 2mg on Monday, Monday, Monday Active warfarin (COUMADIN) 2 MG tablet Take 1 tablet (2 mg total) by mouth Daily @1800. Monday, Monday, Monday and 3mg on Monday, Monday, Active fluticasone propionate (FLONASE) 50 mcg/actuation nasal spray Use 1 spray in each nostril daily. Active ELDERBERRY FRUIT ORAL Take by mouth. Activ e guaifenesin (TUSSIN ORAL) Take by mouth. Activ e azelastine HCl (AZELASTINE NASL) by Nasal route. Active vitamin B complex (B COMPLEX ORAL) Take by mouth. Active cyanocobalamin 1,000 mcg/mL injection vial Inject 1 mL (1,000 mcg total) into the muscle every 30 (thirty) days. Dose uncertain Active rosuvastatin (CRESTOR) 10 mg tablet Take 1 tablet (10 mg total) by mouth Every Monday, Monday, and Monday. 40 tablet 3 05/14/20 21 Active CYANOCOBALAMIN, VITAMIN B-12, ORAL Take by mouth. Active iron polysaccharides (NIFEREX) 150 mg iron capsule Take 1 capsule (150 mg total) by mouth daily. 30 capsule 3 08/05/19 22 Active metoprolol succinate XL (TOPROL-XL) 25 mg 24 hr tabletIndications:A trial ectopy,Palpitations ,Nonobstructive atherosclerosis of coronary artery,Cardiac microvascular disease Take 1 tablet (25 mg total) by mouth 2 (two) times daily with breakfast and dinner. Take with or immediately following a meal. 180 tablet 3 09/02/19 22 Active ferrous gluconate (FERGON) 324 mg (38 mg iron) tabletIndications:B leeding Take 1 tablet (324 mg total) by mouth daily with breakfast. 90 tablet 2 03/02/20 22 Active MULTIVITAMIN ORAL Take by mouth. Active predniSONE (DELTASONE) 5 mg tablet Take 0.5 tablets (2.5 mg total) by mouth every other day. Take with food. Active tacrolimus (PROTOPIC) 0.1 % ointmentIndications :Ecchymoses, spontaneous,EIC (epidermal inclusion cyst),Dermatitis,So lar purpura (HC Code) (HC CODE) (HC Code),Seborrheic keratoses,Itch Apply topically 2 (two) times daily. 100 g 3 03/02/20 23 Active triamcinolone (KENALOG) 0.1 % ointment Apply topically 2 (two) times daily. 454 g 5 08/03/19 24 Active augmented betamethasone dipropionate (DIPROLENE-AF) 0.05 % creamIndications:Ec zema, unspecified type Apply topically 2 (two) times daily. To both legs 100 g 6 09/13/19 24 Active folic acid (FOLVITE) 1 mg tablet Take 1 tablet (1 mg total) by mouth daily. 100 tablet 3 05/01/20 24 Active Active Problems Problem Noted Date Diagnosed Date ERRONEOUS ENCOUNTER--DISREGARD 09/10/2020 Nonobstructive atherosclerosis of coronary arter y 07/31/2020 Moderate mitral regurgitation 05/13/2019 Chronic insomnia 11/21/2016 Hemoptysis 09/04/2016 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 Pneumonia due to organism 01/19/2016 Overview (04/11/2016): Updated for 04/09 IMO Load Cardiac microvascular disease 12/12/2015 Elevated liver enzymes 09/23/2015 Palpitations 09/18/2015 Hyperlipidemia 09/18/2015 Cataract 08/26/2014 Optic neuropathy 08/26/2014 Glaucoma suspect 08/26/2014 Chalazion of right lower eyelid 08/26/2014 Other dyspnea and respiratory abnormality 2013 Anticoagulated on Coumadin 07/12/2013 Lung cancer 06/17/2013 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 Akathisia 04/15/2013 Pulmonary embolism 03/18/2013 Deep vein thrombosis (DVT) (HC Code) (HC CODE) 0 03/18/2013 Bleeding 03/18/2013 Factor V Leiden 03/18/2013 Dyspnea on exertion KANDY on CPAP Exposed to tobacco smoke by family members smoki ng indoors Bronchiectasis COPD (chronic obstructive pulmonary disease) Mildly restrictive lung disease Resolved Problems Problem Noted Date Diagnosed Date Resolved Date KANDY (obstructive sleep apnea) 11/21/2016 01/22/2018 Carotid stenosis, asymptomatic, right 09/18/2015 06/10/2016 Encounters Date Type Department Care Team Description 07/15/2024 Telephone Hematology Program at [facility] [address] [place] [address] Ronald Mills MD Triage 05/08/2024 Documentation Cancer Center at [address] [place] [address] Taya Nuno RN from Last 3 Months Immunizations Name Administration Dates Next Due Influenza, quad, adjuvanted, 0.5mL, preservative free 04/27/2020 Family History Medical History Relation Name Comments Liver cancer Maternal Aunt 1 Clotting disorder Maternal Aunt 2 materna l aunts with clots Bladder cancer Maternal Aunt 3 Blindness Maternal Aunt 3 right eye bl indness Cancer Maternal Cousin basal Lung cancer Maternal Grandfather Blood Disorder Maternal Grandmother OB he morrhage, in childbirth Lung cancer Maternal Uncle Blood Disorder Mother OB hemorrhage Lung cancer Mother Leukemia Sister myeloproliferat esmer disorder transformed to AML, Relation Name Status Comments Maternal Aunt 1 Maternal Aunt 2 Maternal Aunt 3 Maternal Cousin Maternal Grandfather Maternal Grandmother Maternal Uncle Mother Sister Social History Tobacco Use Types [...] Sign Reading Time Taken Comments Blood Pressure 119/70 11/01/2022 2:04 PM EDT Pulse 89 11/01/2022 2:04 PM EDT Temperature 36.7 ??C (98 ??F) 11/01/2022 2:04 PM EDT Respiratory Rate 16 11/01/2022 2:04 PM EDT Oxygen Saturation 97% 11/01/2022 2:04 PM EDT Inhaled Oxygen Concentration - - Weight 59 kg (130 lb) 11/01/2022 2:04 PM EDT Height 160.5 cm (5' 3.19 ) 11/06/2020 10:23 AM E DT Body Mass Index 22.89 11/06/2020 10:23 AM EDT Plan of Treatment Upcoming Encounters Date Type Department Care Team (Late st Contact Info) Description 10/31/2024 1:00 PM EDT Telemedicine Cancer Center at [facility] [address] [facility] [address] [place], [place] [address] Ronald Mills MD [address] [place] [id number] Health Maintenance Due Date Last Done Comments HIV screening 1958 Shingles vaccine (Shingrix) (1 of 2 - Shingrix (RZV) 2 Dose Standard Series) 1993 RSV Discussion (1 - 1-dose 75+ series) 2018 Lipid disorder screening 03/18/2021 03/18/2016 Covid-19 vaccine series ( season) 2024 09/03/2020, 08/06/2020 Diabetes screening 04/05/2025 04/05/2022, 0 09/28/2021, 12/16/2018, Additional history exists Tetanus adult (Td q 10,TDAP once) 02/27/2026 02/28/2016, 02/17/2016 Breast cancer screening Discontinued 04/25/2013 Osteoporosis screening (bone density) Completed 05/10/2017 Pneumo Vaccine 65+ Completed 08/31/2021, 0 03/25/2016, 09/17/2015, Additional history exists Influenza vaccine Completed 06/12/2024, , 05/13/2022, Additional history exists Cervical cancer screening Discontinued Meningococcal Vaccine Aged Out No chavez carmen eligible based on patient's age to complete this topic Procedures Procedure Name Priority Date/Time Associated Diagnosis Comments COMPREHENSIVE METABOLIC PANEL Routine 04/05/2022 1:13 PM EDT Antiphospholipid antibody syndrome (HC Code) (HC CODE) (HC Code) Abnormal finding of blood chemistry, unspecified Paresthesias Restless legs VTE (venous thromboembolism) Factor V Leiden (HC Code) (HC CODE) (HC Code) Anemia, unspecified type BONE DENSITY RESULT SCAN Routine 05/10/2017 LIPID PANEL Add-On 03/18/2016 2:55 PM EDT MAMMOGRAPHY RESULT SCAN 04/25/2013 6:47 AM EDT from Last 3 Months or Most Recently Relevant to Health Maintenance Results * (ABNORMAL) Comprehensive metabolic panel (04/05/2022 1:13 PM EDT) Sodium 138 136 - 144 mmol/L 04/05/2022 1:43 PM EDT [facility] DEPARTMENT OF LABORATORY MEDICINE [facility] Potassium 4.7 3.3 - 5.3 mmol/L 04/05/2022 1:43 PM EDT [facility] OF [facility]ORY MEDICINE [facility] Chloride 100 98 - 107 mmol/L 04/05/2022 1:43 PM EDT [facility] OF LABORATORY MEDICINE [facility] CO2 30 20 - 30 mmol/L 04/05/2022 1:43 PM EDT [facility] OF [facility]ORATORY MEDICINE [facility] Anion Gap 8 7 - 17 04/05/2022 1:43 PM EDT [facility] OF [facility]ATORY MEDICINE [facility] Glucose 115(H) 70 - 100 mg/dL 04/05/2022 1:43 PM EDT [facility] OF [facility]ATORY MEDICINE [facility] BUN 16 8 - 23 mg/dL 04/05/2022 1:43 PM EDT [facility] OF LABORATORY MEDICINE [facility] Creatinine 0.89 0.40 - 1.30 mg/dL 04/05/2022 1:43 PM [facility] DEPARTMENT LABORATORY MEDICINE [facility] Calcium 10.5(H) 8.8 - 10.2 mg/dL 04/05/2022 1:43 PM [facility] BUN/Creatinine Ratio 18.0 8.0 - 23.0 03/11 1:43 PM T [facility] Total Protein 7.0 6.6 - 8.7 g/dL 04/05/2022 1:43 PM [facility] DEPART[facility] Albumin 4.2 3.6 - 4.9 g/dL 04/05/2022 1:43 PM [facility] DEPART[facility] Total Bilirubin 0.6 <=1.2 mg/dL 04/05/2022 1:43 PM [facility] DEPARTMENT OF LABORATORY MEDICINE [facility] Alkaline Phosphatase 58 9 - 122 U/L 04/05/2022 1:43 PM [facility] Alanine Aminotransferase (ALT) 19 10 - 35 U/L 04/05/2022 1:43 PM [facility] DEPARTMENT LABORATORY MEDICINE [facility] Comment:Calcium dobesilate c an cause artificially low ALT results at therapeutic concentrations Aspartate Aminotransferase (AST) 26 10 - 35 U/L 04/05/2022 1:43 PM [facility] DEPARTMENT OF LABORATORY MEDICINE [facility] Globulin 2.8 2.3 - 3.5 g/dL 04/05/2022 1:43 PM [facility] DEPART[facility] A/G Ratio 1.5 1.0 - 2.2 04/05/2022 1:43 PM [facility] DEPART[facility] AST/ALT Ratio 1.4 See Comment 04/05/2022 1:43 PM [facility] DEPARTMENT OF LABORATORY MEDICINE [facility] Comment: Adult with mild elevations of transaminases (< 5 times upper limit of normal): AST/ALT > 2 suggests alcoholic liver injury AST/ALT < 1 suggests non-alcoholic fatty liver disease (NAFLD) [place] (healthy): AST/ALT can be > 3 on day 0 AST/ALT < 2 by day 5 The thresholds provided focus on the most common etiologies of elevated serum transaminase levels and the associated alteration of AST:ALT ratios; they are not intended to exclude other feasible and clinically appropriate possibilities eGFR (Creatinine) >60 >=60 mL/min/1.7 3m2 04/05/2022 1:43 PM EDT [facility] MEDIC[facility] Comment:Estimated glomerular filtration rate (eGFR) was calculated using the improved CKD-EPI Creatinine (2020) equation. The eGFR provides a rough estimate of kidney function within 30% variability. Values under 60 mL/min/1.73 m2 may indicate CKD if noted for more than 3 months. The eGFR is only valid if creatinine is at steady state. Blood Venipuncture / Unknown 04/05/2022 1:13 PM EDT 04/05/2022 1:14 PM EDT Ronald Mills MD LAB BLOOD ORDERABLES Final Resul t [facility] DEPART[facility] OF LABORATORY MEDICINE [facility] [address] [place] [address] * Bone Density Result Scan (05/10/2017) us Historical Provider IMG SCAN REPORTS Final Resul t * (ABNORMAL) Lipid panel (03/18/2016 2:55 PM EDT) Cholesterol 229(H) 115 - 199 mg/dL 03/18/2016 8:11 PM EDT [facility] HDL 83 >=40 mg/dL 03/18/2016 8:11 PM EDT [facility] Triglycerides 71 30 - 150 mg/dL 03/18/2016 8:11 PM EDT [facility] Chol/HDL Ratio 2.8 <=5 03/18/2016 8:11 PM EDT [facility] Comment:Cholesterol/HDL rati o cannot be calculated. LDL Calculated 132 See Comment mg/dL 03/18/2016 8:11 PM EDT [facility] Comment: <100: Optimal 100-129: Near optimal/above optimal 130-159: Borderline high risk 160-189: High risk ??>=190: Very high risk Blood specimen (specimen) Venipuncture / Unknown 03/18/2016 2:55 PM EDT 03/18/2016 3:17 PM EDT Narrative [facility] - 03/18/2016 8:11 PM EDT $18.27 us Sangeeta Garces MD LAB BLOOD ORDERABLES Fin al Result Performing Organization Address City/State/[facility] Co de Phone Number [facility] [address] [place] [address] * MAMMOGRAPHY REPORT (04/25/2013 6:47 AM EDT) 04/25/2013 6:47 AM EDT us Provider Not In System IMG SCAN REPORTS Final Re sult from Last 3 Months or Most Recently Relevant to Health Maintenance Insurance MEDICARE [facility] MEDICARE [facility] MEDICARE [facility] MEDICARE MEDICARE [facility] Advance Directives * Full ACLS (Latest Code Status on File) Date Activated Date Inactivated Comments 12/15/2018 7:13 PM 12/16/2018 6:09 PM * Full Interventions Date Activated Date Inactivated Comments 03/18/2016 6:34 PM 03/19/2016 6:40 PM Care Teams Distribution Center Manager Relationship Specialty Start Date End Date Caitlyn Bowie MD [facility] [address] PCP - General Internal Medicine 05/06/21
--- OUTSIDE RECORDS SUMMARY | 2024-08-08 14:43 | XMS_ITS | Encounter Summary ---
Author Organization [facility] and [facility] Address [address] [place] [address] Care Team Providers Care Piling Setter Name Role Phone Caitlyn Bowie MD Primary Care Provider +1- [phone] Encounter Details Date Type Department Care Team (Late st Contact Info) Description 08/16/2012 Abstract [facility] Health Information Management [address] [place] [id number] [place], Primary Care [address] [place] [id number] Social History Tobacco Use Types Packs/Day Years [...] - Inhaled Oxygen Concentration - - Weight 70.4 kg (155 lb 3.3 oz) 07/27/2012 12:01 AM EST Height - - Body Mass Index 27.33 05/10/2011 12:01 AM EDT documented in this encounter Plan of Treatment Upcoming Encounters Date Type Department Care Team (Late st Contact Info) Description 10/31/2024 1:00 PM EDT Telemedicine Cancer Center at [address] [place], [place] [id number] Ronald Mills MD [address] [facility] [address] [place] [address] documented as of this encounter Visit Diagnoses Not on filedocumented in this encounter Additional Health Concerns Infection Onset Date Last Indicated Resolved Time COVID-19 03/05/2022 03/05/2022 03/15/2022 7:18 PM EDT documented as of this encounter Care Teams Piling Setter Relationship Specialty Start Date End Date Caitlyn Bowie MD [address] [facility] 1 [place] [address] PCP - General Internal Medicine 05/06/21 Henry Kelly MD Pulmonary Department [address] [place] [address], [address] [place] [address] Physician Pulmonary Disease 09/06/17 06/22/20 documented as of this encounter
--- OUTSIDE RECORDS SUMMARY | 2024-08-08 14:43 | XMS_ITS | Encounter Summary ---
Author Organization [facility] and [facility] Address [address] [place] [address] Care Team Providers Care Gym Teacher Name Role Phone Caitlyn Bowie MD Primary Care Provider [phone]- [phone] Encounter Details Date Type Department Care Team (Late st Contact Info) Description 06/27/2019 Scanned Document Onco-Oncology Program at [address] [place] [address] Norma Renee MD [address] [place] [address] 2 [place] [address] Social History Tobacco Use Types Packs/Day Years [...] 1:00 PM EDT Telemedicine Cancer Center at [address] [place], [place] [id number] Ronald Mills MD [address] [facility] [address] [place] [address] documented as of this encounter Visit Diagnoses Not on filedocumented in this encounter Additional Health Concerns Infection Onset Date Last Indicated Resolved Time COVID-19 03/05/2022 03/05/2022 03/15/2022 7:18 PM EDT Assessment Noted Time PHQ-9 Depression Total Score: 2 11/07/19 19 2:06 PM EDT documented as of this encounter Care Teams Gym Teacher Relationship Specialty Start Date End Date Caitlyn Bowie MD [address] [facility] 1 [place] [address] PCP - General Internal Medicine 05/06/21 Henry Kelly MD Pulmonary Department [address] [facility], [address] [place] [address] Physician Pulmonary Disease 09/06/17 06/22/20 documented as of this encounter
--- OUTSIDE RECORDS SUMMARY | 2024-08-08 14:43 | XMS_ITS | Encounter Summary ---
Author Organization [facility] and [facility] Address [address] [place] [address] Care Team Providers Care Administrative Appeals Tribunal Member Name Role Phone Caitlyn Bowie MD Primary Care Provider +1- [phone] Encounter Details Date Type Department Care Team (Late st Contact Info) Description 07/12/2019 Scanned Document Onco-Oncology Program at [address] [place] [address] Norma Renee MD [address] [place] [address] 2 [place] [address] Social History Tobacco Use Types [...] 1:00 PM EDT Telemedicine Cancer Center at [address] [place], [place] [id number] Ronald Mills MD [address] [facility] [address] [place] [address] documented as of this encounter Visit Diagnoses Not on filedocumented in this encounter Additional Health Concerns Infection Onset Date Last Indicated Resolved Time COVID-19 03/05/2022 03/05/2022 03/15/2022 7:18 PM EDT Assessment Noted Time PHQ-9 Depression Total Score: 2 11/07/19 19 2:06 PM EDT documented as of this encounter Care Teams Administrative Appeals Tribunal Member Relationship Specialty Start Date End Date Caitlyn Bowie MD [address] [facility] 1 [place] [address] PCP - General Internal Medicine 05/06/21 Henry Kelly MD Pulmonary Department [address] [facility], [address] [place] [address] Physician Pulmonary Disease 09/06/17 06/22/20 documented as of this encounter
--- OUTSIDE RECORDS SUMMARY | 2024-08-08 14:43 | XMS_ITS | Encounter Summary ---
Author Organization [facility] Address [address] [place] [address] Care Team Providers Care Electron Beam Welding Machine Operator Name Role Phone Cristofer Hope MD Primary Care Provider Victorino Read MD Primary Care Provider UnavailSharon Kimbrough Primary Care Provider Unava ilBrennan Newman MD Primary Care Provider Unavailab Hayden Montes MD Unavailable [phone] Pallavi Flood NP Unavailable [phone] Caitlyn Bowie MD Primary Care Provider Unava chhaya Encounter Details Date Type Department Care Team Description 06/21/2017 Release of Information Medical Records [address] [place] [id number] Abstract, Provider Social History Tobacco Use Types Packs/Day [...] on filedocumented in this encounter Care Teams Electron Beam Welding Machine Operator Relationship Specialty Start Date End Date Cristofer Hope MD PCP - General Internal Medicine 05/16/17 12/20/17 Victorino Martin MD PCP - General Internal Medicine 12/21/17 08/01/18 Sharon Vides PCP - General Internal Medicine 08/02/18 05/26/20 Brennan Burnett MD PCP - General Internal Medicine 05/27/20 12/07/21 Caitlyn Bowie MD [address] [place] [address] PCP - General Internal Medicine 12/08/21 Hayden Shah MD [address] [place] [address] Specialist Cardiovascular Disease 09/01/20 Pallavi Flood NP [address] [place] [address] Cardiology 09/01/20 documented as of this encounter
--- OUTSIDE RECORDS SUMMARY | 2024-08-08 14:43 | XMS_ITS | Encounter Summary ---
Author Organization [facility] Address [address] [place] [address] Care Team Providers Care Chief Compressor Station Engineer Name Role Phone Cristofer Hope MD Primary Care Provider Victorino Read MD Primary Care Provider UnavailSharon Kimbrough Primary Care Provider Unava ilBrennan Newman MD Primary Care Provider Unavailab Hayden Montes MD Unavailable [phone] Pallavi Flood NP Unavailable [phone]- [phone] Caitlyn Bowie MD Primary Care Provider Unava chhaya Encounter Details Date Type Department Care Team Description 06/15/2017 Transfer Records Medical Records [address] [place] [address] Abstract, Provider Social History Tobacco Use Types [...] on filedocumented in this encounter Care Teams Chief Compressor Station Engineer Relationship Specialty Start Date End Date Cristofer Hope MD PCP - General Internal Medicine 05/16/17 12/20/17 Victorino Martin MD PCP - General Internal Medicine 12/21/17 08/01/18 Sharon Vides PCP - General Internal Medicine 08/02/18 05/26/20 Brennan Burnett MD PCP - General Internal Medicine 05/27/20 12/07/21 Caitlyn Bowie MD [address] [place] [address] PCP - General Internal Medicine 12/08/21 Hayden Shah MD [address] [place], [place] [phone] Specialist Cardiovascular Disease 09/01/20 Pallavi Flood NP [address] [place], [place] [phone] Cardiology 09/01/20 documented as of this encounter
--- OUTSIDE RECORDS SUMMARY | 2024-08-08 14:43 | XMS_ITS | Encounter Summary ---
Author Organization [facility] Address [address] [place] [address] Care Team Providers Care Library Clerk Name Role Phone Victorino Martin MD Primary Care Provider Sharon Odonnell Primary Care Provider Brennan Castro MD Primary Care Provider UnavailHayden Fernandez MD Unavailable [phone] Pallavi Flood NP Unavailable [phone] Caitlyn Bowie MD Primary Care Provider Johnathon shaver Encounter Details Date Type Department Care Team Description 02/07/2018 Ship Officer Report Medical Records [address] [place] [address] Victorino Martin MD Social History Tobacco Use Types Packs/Day [...] on filedocumented in this encounter Care Teams Library Clerk Relationship Specialty Start Date End Date Victorino Martin MD PCP - General Internal Medicine 12/21/17 08/01/18 Sharon Vides PCP - General Internal Medicine 08/02/18 05/26/20 Brennan Burnett MD PCP - General Internal Medicine 05/27/20 12/07/21 Caitlyn Bowie MD [address] [place] [address] PCP - General Internal Medicine 12/08/21 Hayden Shah MD [address] [place] [address] [phone] Specialist Cardiovascular Disease 09/01/20 Pallavi Flood NP [address] [place] [address] [id number] Cardiology 09/01/20 documented as of this encounter
--- OUTSIDE RECORDS SUMMARY | 2024-08-08 14:43 | XMS_ITS | Encounter Summary ---
Author Organization [facility] and [facility] Address [address] [place] [address] Care Team Providers Care Permit Review Assistant Name Role Phone Caitlyn Bowie MD Primary Care Provider [phone]- [phone] Encounter Details Date Type Department Care Team (Late st Contact Info) Description 06/21/2012 Abstract Head & Neck Cancers Program at [address] [id number] Mikel Lloyd MD [address] [place] [phone] (Fax) Social History Tobacco Use Types Packs/Day Years [...] [facility] [address] [facility] [address] [place] [address] Ronald Mills MD [address] [facility] [address] [place] [address] documented as of this encounter Visit Diagnoses Not on filedocumented in this encounter Additional Health Concerns Infection Onset Date Last Indicated Resolved Time COVID-19 03/05/2022 03/05/2022 03/15/2022 7:18 PM EDT documented as of this encounter Care Teams Permit Review Assistant Relationship Specialty Start Date End Date Caitlyn Bowie MD [address] [facility] 1 [place] [address] PCP - General Internal Medicine 05/06/21 Henry Kelly MD Pulmonary Department [address] [place] [address], [address] [place] [address] Physician Pulmonary Disease 09/06/17 06/22/20 documented as of this encounter
--- OUTSIDE RECORDS SUMMARY | 2024-08-08 14:43 | XMS_ITS | Encounter Summary ---
Author Organization [facility] Address [address] [place] [address] Care Team Providers Care Gleason Operator Name Role Phone Victorino Martin MD Primary Care Provider Sharon Odonnell Primary Care Provider Brennan Castro MD Primary Care Provider UnavailHayden Fernandez MD Unavailable [phone] Pallavi Flood NP Unavailable [phone] Caitlyn Bowie MD Primary Care Provider Johnathon shaver Encounter Details Date Type Department Care Team Description 03/01/2018 Working Foreman Report Medical Records [address] [place] [address] Renetta Lugo Np Social History Tobacco Use Types Packs/Day Years [...] on filedocumented in this encounter Care Teams Gleason Operator Relationship Specialty Start Date End Date Victorino Martin MD PCP - General Internal Medicine 12/21/17 08/01/18 Sharon Vides PCP - General Internal Medicine 08/02/18 05/26/20 Brennan Burnett MD PCP - General Internal Medicine 05/27/20 12/07/21 Caitlyn Bowie MD [address] [place] [address] PCP - General Internal Medicine 12/08/21 Hayden Shah MD [address] [place], [place] [phone] Specialist Cardiovascular Disease 09/01/20 Pallavi Flood NP [address] [place] [address] [phone] Cardiology 09/01/20 documented as of this encounter
--- OUTSIDE RECORDS SUMMARY | 2024-08-08 14:43 | XMS_ITS | Encounter Summary ---
Author Organization [facility] and [facility] Address [address] [place] [address] Care Team Providers Care Coal Chute Worker Name Role Phone Caitlyn Bowie MD Primary Care Provider [phone]- [phone] Encounter Details Date Type Department Care Team (Late st Contact Info) Description 06/27/2019 Scanned Document Onco-Oncology Program at [address] [place] [address] Norma Renee MD [address] [place] [address] 2 [place] [address] Social History Tobacco Use Types [...] 1:00 PM EDT Telemedicine Cancer Center at [address] [place], [place] [phone] Ronald Mills MD 240 [facility] [address]1 [place] [address] documented as of this encounter Visit Diagnoses Not on filedocumented in this encounter Additional Health Concerns Infection Onset Date Last Indicated Resolved Time COVID-19 03/05/2022 03/05/2022 03/15/2022 7:18 PM EDT Assessment Noted Time PHQ-9 Depression Total Score: 2 11/07/19 19 2:06 PM EDT documented as of this encounter Care Teams Coal Chute Worker Relationship Specialty Start Date End Date Caitlyn Bowie MD 3400 [facility] 1 [place] [address] PCP - General Internal Medicine 05/06/21 Henry Kelly MD Pulmonary Department 175 [facility], [address] [place] [address] Physician Pulmonary Disease 09/06/17 06/22/20 documented as of this encounter
--- OUTSIDE RECORDS SUMMARY | 2024-08-08 14:43 | XMS_ITS | Encounter Summary ---
Author Organization [facility] Address [address] [place] [address] Care Team Providers Care College Football Coach Name Role Phone Victorino Martin MD Primary Care Provider Sharon Odonnell Primary Care Provider Brennan Castro MD Primary Care Provider UnavailHayden Fernandez MD Unavailable [phone] Pallavi Flood NP Unavailable [phone] Caitlyn Bowie MD Primary Care Provider Johnathon shaver Encounter Details Date Type Department Care Team Description 02/02/2018 [facility] Medical Records [address] [place] [address] Abstract, Provider Social History Tobacco Use Types [...] on filedocumented in this encounter Care Teams College Football Coach Relationship Specialty Start Date End Date Victorino Martin MD PCP - General Internal Medicine 12/21/17 08/01/18 Sharon Vides PCP - General Internal Medicine 08/02/18 05/26/20 Brennan Burnett MD PCP - General Internal Medicine 05/27/20 12/07/21 Caitlyn Bowie MD [address] [place] [address] PCP - General Internal Medicine 12/08/21 Hayden Shah MD [address] [place] [address] [phone] Specialist Cardiovascular Disease 09/01/20 Pallavi Flood NP [address] [place] [address] [phone] Cardiology 09/01/20 documented as of this encounter
--- OUTSIDE RECORDS SUMMARY | 2024-08-08 14:43 | XMS_ITS | Encounter Summary ---
Author Organization [facility] and [facility] Address [address] [place] [address] Care Team Providers Care Wide Load Escort Name Role Phone Caitlyn Bowie MD Primary Care Provider [phone]- [phone] Encounter Details Date Type Department Care Team (Late st Contact Info) Description 06/27/2019 Scanned Document Onco-Oncology Program at [address] [place] [address] Norma Renee MD [address] [place] [address] 2 [place] [address] Social History Tobacco Use Types [...] 1:00 PM EDT Telemedicine Cancer Center at [address] [place], [place] [phone] Ronald Mills MD 240 [facility] A1 [place] [address] documented as of this encounter Visit Diagnoses Not on filedocumented in this encounter Additional Health Concerns Infection Onset Date Last Indicated Resolved Time COVID-19 03/05/2022 03/05/2022 03/15/2022 7:18 PM EDT Assessment Noted Time PHQ-9 Depression Total Score: 2 11/07/19 19 2:06 PM EDT documented as of this encounter Care Teams Wide Load Escort Relationship Specialty Start Date End Date Caitlyn Bowie MD [address] [facility] 1 [place] [address] PCP - General Internal Medicine 05/06/21 Henry Kelly MD Pulmonary Department 175 [facility], [address] [place] [address] Physician Pulmonary Disease 09/06/17 06/22/20 documented as of this encounter
--- OUTSIDE RECORDS SUMMARY | 2024-08-08 14:44 | XMS_ITS ---
Author Name [facility] Organization Unknown History of Medication Use Medication Directions Dispensed Refills Start Date End Date Stat warfarin (COUMADIN) 1 MG tablet 1 tablet active fluticasone propion-salmeteroL (ADVAIR HFA) 230-21 mcg/actuation inhaler Advair HFA 230 mcg-21 mcg/actuation aerosol inhaler INHALE 2 PUFFS TWICE DAILY. 07/06/2020 active furosemide (LASIX) 20 mg tablet furosemide 20 mg tablet TAKE ONE TABLET BY MOUTH EVERY DAY NEEDED FOR LEG SWELLING 08/07/2017 active levothyroxine (SYNTHROID, LEVOTHROID) 100 MCG tablet 02/04/2016 active warfarin (COUMADIN) 2 mg tablet Take 2 mg by mouth. activ e traZODone (DESYREL) 50 mg tablet trazodone 50 mg tablet TAKE TWO TABLETS BY MOUTH AT BEDTIME 01/06/2016 active EPINEPHrine 0.3 mg/0.3 mL IJ auto-injection Inject as directed See Admin Instructions. active docusate sodium (COLACE) 100 mg capsule Take 200 mg by mouth in the morning and 200 mg in the evening. active meclizine (ANTIVERT) 6.25 MG tablet 02/04/2016 active montelukast (SINGULAIR) 10 mg tablet montelukast 10 mg tablet TAKE ONE TABLET BY MOUTH EVERY DAY 02/04/2016 active Probiotic Product (PROBIOTIC BLEND PO) Take 1 capsule by mouth daily. active albuterol 2.5 mg /3 mL (0.083 %) nebulizer solution Inhale 1 vial every 4 (four) hours as needed. 10/09/2018 active cefPODOXime (VANTIN) 200 mg tablet TAKE 1 TABLET BY MOUTH TWICE DAILY FOR 7 DAYS. TAKE WITH MEAL/FOOD. 11/09/2022 active metoprolol succinate XL (Toprol XL) 50 mg 24 hr tablet Take 50 mg by mouth. 07/05/2020 active rosuvastatin (CRESTOR) 10 mg tablet rosuvastatin 10 mg tablet TAKE 1 TABLET BY MOUTH EVERY 2 DAYS. 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
--- OUTSIDE RECORDS SUMMARY | 2024-08-08 14:44 | XMS_ITS | Encounter Summary ---
Author Organization [facility] Address [address] [place] [address] Care Team Providers Care Vaccinator Name Role Phone Caitlyn Bowie MD Primary Care Provider [phone]- [phone] Encounter Details Date Type Department Care Team (Late st Contact Info) Description 08/09/2017 Scanned Document Cardiovascular Medicine at [address] [place] [address] System, Provider Not In Social History Tobacco [...] 1:00 PM EDT Telemedicine Cancer Center at [facility] 240 [facility] [address] [place] [address] Ronald Mills MD 240 [facility] [address] [place] [address] documented as of this encounter Procedures Procedure Name Priority Date/Time Associated Diagnosis Comments LAB SCAN Routine 07/27/2017 documented in this encounter Results * Lab Scan (07/27/2017) Blood specimen (specimen) us Provider Not In System LAB BLOOD ORDERABLES Carmina l Result documented in this encounter Visit Diagnoses Not on filedocumented in this encounter Additional Health Concerns Infection Onset Date Last Indicated Resolved Time COVID-19 03/05/2022 03/05/2022 03/15/2022 7:18 PM EDT documented as of this encounter Care Teams Vaccinator Relationship Specialty Start Date End Date Caitlyn Bowie MD 34[address] [facility] Max 1 [place] [address] PCP - General Internal Medicine 05/06/21 Henry Kelly MD Pulmonary Department 175 [facility], [address] [place] [address] Physician Pulmonary Disease 09/06/17 06/22/20 documented as of this encounter
--- OUTSIDE RECORDS SUMMARY | 2024-08-08 14:44 | XMS_ITS | Encounter Summary ---
Author Organization [facility] Address [address] [place] [address] Care Team Providers Care Professor Of Art History Name Role Phone Caitlyn Bowie MD Primary Care Provider +1- [phone] Encounter Details Date Type Department Care Team (Late st Contact Info) Description 03/01/2021 Scanned Document INTERFACE DEFAULT [address] [place] [address] System, Provider Not In Social History Tobacco [...] [facility] 240 [facility] Building [address] [place] [address] Ronald Mills MD [address] [place] [address] [address] [place] [address] documented as of this encounter Visit Diagnoses Not on filedocumented in this encounter Additional Health Concerns Infection Onset Date Last Indicated Resolved Time COVID-19 03/05/2022 03/05/2022 03/15/2022 7:18 PM EDT Assessment Noted Time PHQ-9 Depression Total Score: 2 11/07/19 19 2:06 PM EDT documented as of this encounter Care Teams Professor Of Art History Relationship Specialty Start Date End Date Caitlyn Bowie MD [address] [address] PCP - General Internal Medicine 05/06/21 documented as of this encounter
--- OUTSIDE RECORDS SUMMARY | 2024-08-08 14:44 | XMS_ITS | Encounter Summary ---
Author Organization [facility] Address [address] [place] [address] Care Team Providers Care Silver Spray Worker Name Role Phone Brennan Burnett MD Primary Care Provider Unavailab Hayden Montes MD Unavailable [phone] Pallavi Flood NP Unavailable [phone] Caitlyn Bowie MD Primary Care Provider Unava ilable Encounter Details Date Type Department Care Team Description 08/17/2020 [facility] Medical Records [address] [place] [phone] [place] [address] Social History Tobacco Use Types Packs/Day Years [...] on file documented as of this encounter Procedures Procedure Name Priority Date/Time Associated Diagnosis Comments OUTSIDE VASCULAR STUDY Routine 08/17/2020 OUTSIDE EKG Routine 08/17/2020 OUTSIDE PLAIN FILM Routine 08/17/2020 OUTSIDE LAB Routine 08/17/2020 OUTSIDE LAB Routine 08/17/2020 documented in this encounter Results * OUTSIDE PLAIN FILM (08/17/2020) Provider Default RADIOLOGY * OUTSIDE LAB (08/17/2020) Provider Default LAB * OUTSIDE LAB (08/17/2020) Provider Default LAB * OUTSIDE VASCULAR STUDY (08/17/2020) Provider Default CARDIOLOGY * OUTSIDE EKG (08/17/2020) Provider Default CARDIOLOGY documented in this encounter Visit Diagnoses Not on filedocumented in this encounter Care Teams Silver Spray Worker Relationship Specialty Start Date End Date Brennan Brunett MD PCP - General Internal Medicine 05/27/20 12/07/21 Caitlyn Bowie MD [address] [place] [address] PCP - General Internal Medicine 12/08/21 Hayden Shah MD [address] [place] [address] Specialist Cardiovascular Disease 09/01/20 Pallavi Flood NP [address] [place] [address] Cardiology 09/01/20 documented as of this encounter
--- OUTSIDE RECORDS SUMMARY | 2024-08-08 14:44 | XMS_ITS | Encounter Summary ---
Author Organization [facility] Address [address] [place] [address] Care Team Providers Care Skirt Trimmer Name Role Phone Caitlyn Bowie MD Primary Care Provider +1- [phone] Encounter Details Date Type Department Care Team (Late st Contact Info) Description 03/08/2021 Scanned Document INTERFACE DEFAULT [address] [place] [address] System, Provider Not In Social History Tobacco [...] [facility] at [facility] 240 [facility] [address] [place] [address] Ronald Mills MD [address] [place] [address] [address] [place] [address] documented as of this encounter Procedures Procedure Name Priority Date/Time Associated Diagnosis Comments LAB SCAN 03/08/2021 12:00 AM EDT LAB SCAN 03/08/2021 12:00 AM EDT documented in this encounter Results * LAB SCAN (03/08/2021 12:00 AM EDT) 03/08/2021 us Provider Not In System LAB BLOOD ORDERABLES Carmina l Result * LAB SCAN (03/08/2021 12:00 AM EDT) 03/08/2021 us Provider Not In System LAB BLOOD ORDERABLES Carmina l Result documented in this encounter Visit Diagnoses Not on filedocumented in this encounter Additional Health Concerns Infection Onset Date Last Indicated Resolved Time COVID-19 03/05/2022 03/05/2022 03/15/2022 7:18 PM EDT Assessment Noted Time PHQ-9 Depression Total Score: 2 11/07/19 19 2:06 PM EDT documented as of this encounter Care Teams Skirt Trimmer Relationship Specialty Start Date End Date Caitlyn Bowie MD [facility] [address] [address] PCP - General Internal Medicine 05/06/21 documented as of this encounter
--- OUTSIDE RECORDS SUMMARY | 2024-08-08 14:44 | XMS_ITS | Encounter Summary ---
Author Organization [facility] Address [address] [place] [address] Care Team Providers Care Director Women Name Role Phone Caitlyn Bowie MD Primary Care Provider +1- [phone] Encounter Details Date Type Department Care Team (Late st Contact Info) Description 02/28/2021 Scanned Document INTERFACE DEFAULT [address] [place] [address] System, Provider Not In Social History Tobacco [...] [facility] 240 [facility] [address] [place] [address] Ronald Mills MD [address] [place] [address] [address] [place] [address] documented as of this encounter Procedures Procedure Name Priority Date/Time Associated Diagnosis Comments XRAY RESULT SCAN 02/28/2021 12:00 AM EDT documented in this encounter Results * XRAY RESULT SCAN (02/28/2021 12:00 AM EDT) 02/28/2021 us Provider Not In System IMG SCAN REPORTS Final Re sult documented in this encounter Visit Diagnoses Not on filedocumented in this encounter Additional Health Concerns Infection Onset Date Last Indicated Resolved Time COVID-19 03/05/2022 03/05/2022 03/15/2022 7:18 PM EDT Assessment Noted Time PHQ-9 Depression Total Score: 2 11/07/19 19 2:06 PM EDT documented as of this encounter Care Teams Director Women Relationship Specialty Start Date End Date Caitlyn Bowie MD [address] [address] PCP - General Internal Medicine 05/06/21 documented as of this encounter
--- OUTSIDE RECORDS SUMMARY | 2024-08-08 14:44 | XMS_ITS | Encounter Summary ---
Author Organization [facility] Address [address] [place] [address] Care Team Providers Care Trim Carpenter Name Role Phone Caitlyn Bowie MD Primary Care Provider +1- [phone] Encounter Details Date Type Department Care Team (Late st Contact Info) Description 04/02/2021 Scanned Document INTERFACE DEFAULT [address] [place] [address] System, Provider Not In Social History Tobacco [...] [facility] 240 [facility] [address] [place] [address] Ronald Mills MD [address] [place] [address] [address] [place] [address] documented as of this encounter Procedures Procedure Name Priority Date/Time Associated Diagnosis Comments US RESULT SCAN 04/02/2021 12:00 AM EDT US RESULT SCAN 04/02/2021 12:00 AM EDT documented in this encounter Results * US RESULT SCAN (04/02/2021 12:00 AM EDT) 04/02/2021 us Provider Not In System IMG SCAN REPORTS Final Re sult * US RESULT SCAN (04/02/2021 12:00 AM EDT) 04/02/2021 us Provider Not In System IMG SCAN REPORTS Final Re sult documented in this encounter Visit Diagnoses Not on filedocumented in this encounter Additional Health Concerns Infection Onset Date Last Indicated Resolved Time COVID-19 03/05/2022 03/05/2022 03/15/2022 7:18 PM EDT Assessment Noted Time PHQ-9 Depression Total Score: 2 11/07/19 19 2:06 PM EDT documented as of this encounter Care Teams Trim Carpenter Relationship Specialty Start Date End Date Caitlyn Bowie MD [address] [address] PCP - General Internal Medicine 05/06/21 documented as of this encounter
--- OUTSIDE RECORDS SUMMARY | 2024-08-08 14:44 | XMS_ITS | Encounter Summary ---
Author Organization [facility] Address [address] [place] [address] Care Team Providers Care Margin Trimmer Name Role Phone Brennan Burnett MD Primary Care Provider Unavailab Hayden Montes MD Unavailable [phone] Pallavi Flood NP Unavailable [phone] Caitlyn Bowie MD Primary Care Provider Unava ilable Encounter Details Date Type Department Care Team Description 09/28/2020 SCAN Medical Records [address] [place] [address] Abstract, Provider Social History Tobacco Use Types [...] Assigned at Date Recorded Not on file COVID-19 Exposure Response Date Recorded In the last month, have you been in contact with someone who was confirmed or suspected to have Coronavirus / COVID-19? No / Unsure 09/21/2020 8:24 AM EDT documented as of this encounter Plan of Treatment Not on file documented as of this encounter Visit Diagnoses Not on filedocumented in this encounter Care Teams Margin Trimmer Relationship Specialty Start Date End Date Brennan Burnett MD PCP - General Internal Medicine 05/27/20 12/07/21 Caitlyn Bowie MD [address] [place] [address] PCP - General Internal Medicine 12/08/21 Hayden Shah MD [address] [place] [address] Specialist Cardiovascular Disease 09/01/20 Pallavi Flood NP [address] [place] [address] Cardiology 09/01/20 documented as of this encounter
--- OUTSIDE RECORDS SUMMARY | 2024-08-08 14:44 | XMS_ITS | Encounter Summary ---
Author Organization [facility] and [facility] Address [address] [place] [address] Care Team Providers Care Foam Caster Name Role Phone Caitlyn Bowie MD Primary Care Provider +1- [phone] Encounter Details Date Type Department Care Team (Late st Contact Info) Description 02/24/2021 Scanned Document INTERFACE DEFAULT [address] [place] [address] System, Provider Not In Social History Tobacco [...] [facility] [address] [facility] [address] [place] [address] Ronald Mills MD [address] [place] [address] [address] [place] [address] documented as of this encounter Procedures Procedure Name Priority Date/Time Associated Diagnosis Comments XRAY RESULT SCAN 02/24/2021 12:00 AM EDT CARDIAC EKG RESULT SCAN 02/24/2021 12:00 AM EDT LAB SCAN 02/24/2021 12:00 AM EDT documented in this encounter Results * CARDIAC EKG RESULT SCAN (02/24/2021 12:00 AM EDT) 02/24/2021 us Provider Not In System CV CARDIAC REPORT (CVR) F inal Result * XRAY RESULT SCAN (02/24/2021 12:00 AM EDT) 02/24/2021 us Provider Not In System IMG SCAN REPORTS Final Re sult * LAB SCAN (02/24/2021 12:00 AM EDT) 02/24/2021 us Provider Not In System LAB BLOOD ORDERABLES Carmina l Result documented in this encounter Visit Diagnoses Not on filedocumented in this encounter Additional Health Concerns Infection Onset Date Last Indicated Resolved Time COVID-19 03/05/2022 03/05/2022 03/15/2022 7:18 PM EDT Assessment Noted Time PHQ-9 Depression Total Score: 2 11/07/19 19 2:06 PM EDT documented as of this encounter Care Teams Foam Caster Relationship Specialty Start Date End Date Caitlyn Bowie MD [address] [address] PCP - General Internal Medicine 05/06/21 documented as of this encounter
--- OUTSIDE RECORDS SUMMARY | 2024-08-08 14:44 | XMS_ITS | Encounter Summary ---
Author Organization [facility] and [facility] Address [address] [place] [address] Care Team Providers Care Vfx Artist Name Role Phone Caitlyn Bowie MD Primary Care Provider +1- [phone] Encounter Details Date Type Department Care Team (Late st Contact Info) Description 04/21/2021 Scanned Document INTERFACE DEFAULT [address] [place] [address] System, Provider Not In Social History Tobacco [...] [facility] at [facility] [address] [facility] Building [address] [place], [place] [id number] Ronald Mills MD [address] [place] [address] [address] [place] [address] documented as of this encounter Procedures Procedure Name Priority Date/Time Associated Diagnosis Comments LAB SCAN 04/21/2021 12:00 AM EDT LAB SCAN 04/21/2021 12:00 AM EDT documented in this encounter Results * LAB SCAN (04/21/2021 12:00 AM EDT) 04/21/2021 us Provider Not In System LAB BLOOD ORDERABLES Carmina l Result * LAB SCAN (04/21/2021 12:00 AM EDT) 04/21/2021 us Provider Not In System LAB BLOOD ORDERABLES Carmina l Result documented in this encounter Visit Diagnoses Not on filedocumented in this encounter Additional Health Concerns Infection Onset Date Last Indicated Resolved Time COVID-19 03/05/2022 03/05/2022 03/15/2022 7:18 PM EDT Assessment Noted Time PHQ-9 Depression Total Score: 2 11/07/19 19 2:06 PM EDT documented as of this encounter Care Teams Vfx Artist Relationship Specialty Start Date End Date Caitlyn Bowie MD [facility] [address] [address] PCP - General Internal Medicine 05/06/21 documented as of this encounter
--- OUTSIDE RECORDS SUMMARY | 2024-08-08 14:44 | XMS_ITS | Encounter Summary ---
Author Organization [facility] Address [address] [place] [address] Care Team Providers Care Department Store Manager Name Role Phone Sharon Vides Primary Care Provider Brennan Castro MD Primary Care Provider Unavailab Hayden Montes MD Unavailable [phone] Pallavi Flood NP Unavailable [phone]- [phone] Caitlyn Bowie MD Primary Care Provider Jhonathon shaver Encounter Details Date Type Department Care Team Description 05/07/2019 [facility] Medical Records [address] [place] [address] Abstract, Provider Social History Tobacco Use Types [...] on filedocumented in this encounter Care Teams Department Store Manager Relationship Specialty Start Date End Date Sharon Vides PCP - General Internal Medicine 08/02/18 05/26/20 Brennan Burnett MD PCP - General Internal Medicine 05/27/20 12/07/21 Caitlyn Bowie MD [address] [place] [address] PCP - General Internal Medicine 12/08/21 Hayden Shah MD [address] [place] [address] Specialist Cardiovascular Disease 09/01/20 Pallavi Flood NP [address] [place] [address] Cardiology 09/01/20 documented as of this encounter
--- OUTSIDE RECORDS SUMMARY | 2024-08-08 14:44 | XMS_ITS | Encounter Summary ---
Author Organization [facility] and [facility] Address [address] [place] [address] Care Team Providers Care Quickbooks Bookkeeper Name Role Phone Caitlyn Bowie MD Primary Care Provider +1- [phone] Encounter Details Date Type Department Care Team (Late st Contact Info) Description 08/21/2017 Scanned Document [facility] Health Information Management [address] [place] [address] External, Provider Social History Tobacco Use Types [...] 1:00 PM EDT Telemedicine [facility] at [facility] [address] [facility] [address] [place], [place] [phone] Ronald Mills MD [address] [facility] [address] [place] [address] documented as of this encounter Procedures Procedure Name Priority Date/Time Associated Diagnosis Comments LAB SCAN Routine 08/21/2017 documented in this encounter Results * Lab Scan (08/21/2017) Blood specimen (specimen) us Provider External LAB BLOOD ORDERABLES Final Res ult documented in this encounter Visit Diagnoses Not on filedocumented in this encounter Additional Health Concerns Infection Onset Date Last Indicated Resolved Time COVID-19 03/05/2022 03/05/2022 03/15/2022 7:18 PM EDT documented as of this encounter Care Teams Quickbooks Bookkeeper Relationship Specialty Start Date End Date Caitlyn Bowie MD [address] [facility] 1 [place] [address] PCP - General Internal Medicine 05/06/21 Henry Kelly MD Pulmonary Department [address] [facility] [place] [address] Physician Pulmonary Disease 09/06/17 06/22/20 documented as of this encounter
--- OUTSIDE RECORDS SUMMARY | 2024-08-08 14:44 | XMS_ITS | Encounter Summary ---
Author Organization [facility] Address [address] [place] [address] Care Team Providers Care Clinical Quality Analyst Name Role Phone Victorino Martin MD Primary Care Provider UnavailSharon Kimbrough Primary Care Provider Unava ilable Brennan Burnett MD Primary Care Provider Unavailab Hayden Montes MD Unavailable [phone] Pallavi Flood NP Unavailable [phone]- [phone] Caitlyn Bowie MD Primary Care Provider Unava chhaya Reason for Visit * Reason Comments E-prescribe Rx Request Encounter Details Date Type Department Care Team Description 04/26/2018 Refill Pulmonology [address] [place] [address] Henry Kelly MD E-prescribe Rx Request Social History Tobacco Use Types Packs/Day Years [...] * Telephone Encounter - Ace Patel - 04/26/2018 3:48 PM EDT Patient would like script to be: E-PRESCRIBED/FAXED TO PHARMACY WHEN WAS THE PATIENT'S LAST APPOINTMENT WITH THE PRESCRIBING PROVIDER? 04/24/18 Does patient have an upcoming appointment? Yes 06/22/18 (THE MEDICATION REQUESTED IS ON THE MED LIST ABOVE) All of the medications requested were on the CURRENT MEDS list Did you check the Pharmacy information above?: YES Patient wants: 90 -day supply Is this a mail order prescription request ? NO Patients current insurance carrier is: Payor: MEDICARE-[employer] / Plan[place] / Product Type: MEDICARE [id number] documented in this encounter Plan of Treatment Not on file documented as of this encounter Visit Diagnoses Not on filedocumented in this encounter Care Teams Clinical Quality Analyst Relationship Specialty Start Date End Date Victorino Martin MD PCP - General Internal Medicine 12/21/17 08/01/18 Sharon Vides PCP - General Internal Medicine 08/02/18 05/26/20 Brennan Burnett MD PCP - General Internal Medicine 05/27/20 12/07/21 Caitlyn Bow[address] MD [address] [place] [address] PCP - General Internal Medicine 12/08/21 Hayden Shah MD [address] [place] [id number] Specialist Cardiovascular Disease 09/01/20 Pallavi Flood NP [address] [place] [address] Cardiology 09/01/20 documented as of this encounter
--- OUTSIDE RECORDS SUMMARY | 2024-08-08 14:44 | XMS_ITS | Encounter Summary ---
Author Organization [facility] and [facility] Address [address] [place] [address] Care Team Providers Care Embossing Press Operator Name Role Phone Caitlyn Bowie MD Primary Care Provider [phone]- [phone] Encounter Details Date Type Department Care Team (Late st Contact Info) Description 03/14/2021 Scanned Document INTERFACE DEFAULT [address] [place] [address] System, Provider Not In Social History Tobacco [...] 1:00 PM EDT Telemedicine [facility] [address] [facility] Building [address] [place], [place] [phone] Ronald Mills MD [address] [place] [address] [address] [place] [address] documented as of this encounter Procedures Procedure Name Priority Date/Time Associated Diagnosis Comments CT RESULT SCAN 03/14/2021 12:00 AM EDT LAB SCAN 03/14/2021 12:00 AM EDT documented in this encounter Results * CT RESULT SCAN (03/14/2021 12:00 AM EDT) 03/14/2021 us Provider Not In System IMG SCAN REPORTS Edited R esult - Final * LAB SCAN (03/14/2021 12:00 AM EDT) 03/14/2021 us Provider Not In System LAB BLOOD ORDERABLES Carmina l Result documented in this encounter Visit Diagnoses Not on filedocumented in this encounter Additional Health Concerns Infection Onset Date Last Indicated Resolved Time COVID-19 03/05/2022 03/05/2022 03/15/2022 7:18 PM EDT Assessment Noted Time PHQ-9 Depression Total Score: 2 11/07/19 19 2:06 PM EDT documented as of this encounter Care Teams Embossing Press Operator Relationship Specialty Start Date End Date Caitlyn Bowie MD [address] [address] PCP - General Internal Medicine 05/06/21 documented as of this encounter
--- OUTSIDE RECORDS SUMMARY | 2024-08-08 14:44 | XMS_ITS | Encounter Summary ---
Author Organization [facility] and [facility] Address [address] [place] [address] Care Team Providers Care Application Developer Name Role Phone Caitlyn Bowie MD Primary Care Provider +1- [phone] Encounter Details Date Type Department Care Team (Late st Contact Info) Description 03/24/2021 Scanned Document INTERFACE DEFAULT [address] [place] [address] System, Provider Not In Social History Tobacco [...] [facility] [address] [facility] [address] [place] [address] Ronald Mills MD [address] [place] [address] [address] [place] [address] documented as of this encounter Visit Diagnoses Not on filedocumented in this encounter Additional Health Concerns Infection Onset Date Last Indicated Resolved Time COVID-19 03/05/2022 03/05/2022 03/15/2022 7:18 PM EDT Assessment Noted Time PHQ-9 Depression Total Score: 2 11/07/19 19 2:06 PM EDT documented as of this encounter Care Teams Application Developer Relationship Specialty Start Date End Date Caitlyn Bowie MD [address] [address] PCP - General Internal Medicine 05/06/21 documented as of this encounter
--- OUTSIDE RECORDS SUMMARY | 2024-08-08 14:44 | XMS_ITS | Encounter Summary ---
Author Organization [facility] and [facility] Address [address] [place] [address] Care Team Providers Care Experimental Rocket Sled Mechanic Name Role Phone Caitlyn Bowie MD Primary Care Provider [phone]- [phone] Encounter Details Date Type Department Care Team (Late st Contact Info) Description 02/25/2021 Scanned Document INTERFACE DEFAULT [address] [place] [address] System, Provider Not In Social History Tobacco [...] [facility] [address] [facility] [address] [place] [address] Ronald Mills MD [address] [place] [address] [address] [place] [address] documented as of this encounter Procedures Procedure Name Priority Date/Time Associated Diagnosis Comments XRAY RESULT SCAN 02/25/2021 12:00 AM EDT CARDIAC NUCLEAR MEDICINE RESULT SCAN 02/25/2021 12:00 AM EDT CARDIAC ECHO RESULT SCAN 02/25/2021 12:00 AM EDT documented in this encounter Results * CARDIAC ECHO RESULT SCAN (02/25/2021 12:00 AM EDT) 02/25/2021 us Provider Not In System CV CARDIAC REPORT (CVR) F inal Result * XRAY RESULT SCAN (02/25/2021 12:00 AM EDT) 02/25/2021 us Provider Not In System IMG SCAN REPORTS Final Re sult * CARDIAC NUCLEAR MEDICINE RESULT SCAN (02/25/2021 12:00 AM EDT) 02/25/2021 us Provider Not In System CV CARDIAC REPORT (CVR) F inal Result documented in this encounter Visit Diagnoses Not on filedocumented in this encounter Additional Health Concerns Infection Onset Date Last Indicated Resolved Time COVID-19 03/05/2022 03/05/2022 03/15/2022 7:18 PM EDT Assessment Noted Time PHQ-9 Depression Total Score: 2 11/07/19 19 2:06 PM EDT documented as of this encounter Care Teams Experimental Rocket Sled Mechanic Relationship Specialty Start Date End Date Caitlyn Bowie MD [address] [address] PCP - General Internal Medicine 05/06/21 documented as of this encounter
--- OUTSIDE RECORDS SUMMARY | 2024-08-08 14:44 | XMS_ITS | Encounter Summary ---
Author Organization [facility] and [facility] Address [address] [place] [address] Care Team Providers Care Risk Reduction Counselor Name Role Phone Caitlyn Bowie MD Primary Care Provider +1- [phone] Encounter Details Date Type Department Care Team (Late st Contact Info) Description 09/01/2017 Scanned Document [facility] Health Information Management [address] [place] [address] External, Provider Social History Tobacco Use Types [...] Encounters Date Type Department Care Team (Late Contact Info) Description 10/31/2024 1:00 PM EDT Telemedicine [facility] [address] [facility] [address] [place], [place] [id number] Ronald Mills MD [address] [facility] A1 [place] [address] documented as of this encounter Procedures Procedure Name Priority Date/Time Associated Diagnosis Comments XRAY RESULT SCAN Routine 09/01/2017 documented in this encounter Results * Xray Result Scan (09/01/2017) us Provider External IMG SCAN REPORTS Final Result documented in this encounter Visit Diagnoses Not on filedocumented in this encounter Additional Health Concerns Infection Onset Date Last Indicated Resolved Time COVID-19 03/05/2022 03/05/2022 03/15/2022 7:18 PM EDT documented as of this encounter Care Teams Risk Reduction Counselor Relationship Specialty Start Date End Date Caitlyn Bowie MD [facility] 1 [place] [address] PCP - General Internal Medicine 05/06/21 Henry Kelly MD Pulmonary Department [address] [facility] [place] [address] Physician Pulmonary Disease 09/06/17 06/22/20 documented as of this encounter
--- OUTSIDE RECORDS SUMMARY | 2024-08-08 14:44 | XMS_ITS | Encounter Summary ---
Author Organization [facility] and [facility] Address [address] [place] [address] Care Team Providers Care Fleet Manager Name Role Phone Caitlyn Bowie MD Primary Care Provider +1- [phone] Encounter Details Date Type Department Care Team (Late st Contact Info) Description 04/12/2021 Scanned Document INTERFACE DEFAULT [address] [place] [address] System, Provider Not In Social History Tobacco [...] [facility] [address] [facility] [address] [place], [place] [address] Ronald Mills MD [address] [place] [address] [address] [place] [address] documented as of this encounter Procedures Procedure Name Priority Date/Time Associated Diagnosis Comments CARDIAC ECHO RESULT SCAN 04/12/2021 12:00 AM EDT documented in this encounter Results * CARDIAC ECHO RESULT SCAN (04/12/2021 12:00 AM EDT) 04/12/2021 us Provider Not In System CV CARDIAC REPORT (CVR) E dited Result - Final documented in this encounter Visit Diagnoses Not on filedocumented in this encounter Additional Health Concerns Infection Onset Date Last Indicated Resolved Time COVID-19 03/05/2022 03/05/2022 03/15/2022 7:18 PM EDT Assessment Noted Time PHQ-9 Depression Total Score: 2 11/07/19 19 2:06 PM EDT documented as of this encounter Care Teams Fleet Manager Relationship Specialty Start Date End Date Caitlyn Bowie MD [address] [address] PCP - General Internal Medicine 05/06/21 documented as of this encounter
--- OUTSIDE RECORDS SUMMARY | 2024-08-08 14:44 | XMS_ITS | Encounter Summary ---
Author Organization [facility] and [facility] Address [address] [place] [address] Care Team Providers Care Luster Applicator Name Role Phone Caitlyn Bowie MD Primary Care Provider +1- [phone] Encounter Details Date Type Department Care Team (Late st Contact Info) Description 03/22/2021 Scanned Document INTERFACE DEFAULT [address] [place] [address] System, Provider Not In Social History Tobacco [...] [facility] [address] [facility] [address] [place] [address] Ronald Mills MD [address] [place] [address] [address] [place] [address] documented as of this encounter Visit Diagnoses Not on filedocumented in this encounter Additional Health Concerns Infection Onset Date Last Indicated Resolved Time COVID-19 03/05/2022 03/05/2022 03/15/2022 7:18 PM EDT Assessment Noted Time PHQ-9 Depression Total Score: 2 11/07/19 19 2:06 PM EDT documented as of this encounter Care Teams Luster Applicator Relationship Specialty Start Date End Date Caitlyn Bowie MD [address] [address] PCP - General Internal Medicine 05/06/21 documented as of this encounter
--- OUTSIDE RECORDS SUMMARY | 2024-08-08 14:44 | XMS_ITS | Encounter Summary ---
Author Organization [facility] Address [address] [place] [address] Care Team Providers Care Poultry Barn Manager Name Role Phone Caitlyn oBwie MD Primary Care Provider +1- [phone] Encounter Details Date Type Department Care Team (Late st Contact Info) Description 03/15/2021 Scanned Document INTERFACE DEFAULT [address] [place] [address] System, Provider Not In Social History Tobacco [...] [facility] Center at [facility] [address] [facility] Building [address] [place], [place] [address] Ronald Mills MD [address] [place] [address] [address] [place] [address] documented as of this encounter Procedures Procedure Name Priority Date/Time Associated Diagnosis Comments LAB SCAN 03/15/2021 12:00 AM EDT LAB SCAN 03/15/2021 12:00 AM EDT documented in this encounter Results * LAB SCAN (03/15/2021 12:00 AM EDT) 03/15/2021 us Provider Not In System LAB BLOOD ORDERABLES Carmina l Result * LAB SCAN (03/15/2021 12:00 AM EDT) 03/15/2021 us Provider Not In System LAB BLOOD ORDERABLES Carmina l Result documented in this encounter Visit Diagnoses Not on filedocumented in this encounter Additional Health Concerns Infection Onset Date Last Indicated Resolved Time COVID-19 03/05/2022 03/05/2022 03/15/2022 7:18 PM EDT Assessment Noted Time PHQ-9 Depression Total Score: 2 11/07/19 19 2:06 PM EDT documented as of this encounter Care Teams Poultry Barn Manager Relationship Specialty Start Date End Date Caitlyn Bowie MD [facility] [address] [address] PCP - General Internal Medicine 05/06/21 documented as of this encounter
--- OUTSIDE RECORDS SUMMARY | 2024-08-08 14:44 | XMS_ITS | Encounter Summary ---
Author Organization [facility] and [facility] Address [address] [place] [address] Care Team Providers Care Carton And Can Supply Supervisor Name Role Phone Caitlyn Bowie MD Primary Care Provider +1- [phone] Encounter Details Date Type Department Care Team (Late st Contact Info) Description 04/16/2021 Scanned Document INTERFACE DEFAULT [address] [place] [address] System, Provider Not In Social History Tobacco [...] 1:00 PM EDT Telemedicine [facility] at [facility] [address] [facility] [address] [place] [address] Ronald Mills MD [address] [place] [address] [address] [place] [address] documented as of this encounter Procedures Procedure Name Priority Date/Time Associated Diagnosis Comments CARDIAC EKG RESULT SCAN 04/16/2021 12:00 AM EDT LAB SCAN 04/16/2021 12:00 AM EDT documented in this encounter Results * CARDIAC EKG RESULT SCAN (04/16/2021 12:00 AM EDT) 04/16/2021 us Provider Not In System CV CARDIAC REPORT (CVR) F inal Result * LAB SCAN (04/16/2021 12:00 AM EDT) 04/16/2021 us Provider Not In System LAB BLOOD ORDERABLES Carmina l Result documented in this encounter Visit Diagnoses Not on filedocumented in this encounter Additional Health Concerns Infection Onset Date Last Indicated Resolved Time COVID-19 03/05/2022 03/05/2022 03/15/2022 7:18 PM EDT Assessment Noted Time PHQ-9 Depression Total Score: 2 11/07/19 19 2:06 PM EDT documented as of this encounter Care Teams Carton And Can Supply Supervisor Relationship Specialty Start Date End Date Caitlyn Bowie MD [facility] [address] [address] PCP - General Internal Medicine 05/06/21 documented as of this encounter
--- OUTSIDE RECORDS SUMMARY | 2024-08-08 14:44 | XMS_ITS | Encounter Summary ---
Author Organization [facility] and [facility] Address [address] [place] [address] Care Team Providers Care Auto Engine Mechanic Name Role Phone Caitlyn Bowie MD Primary Care Provider +1- [phone] Encounter Details Date Type Department Care Team (Late st Contact Info) Description 04/11/2021 Scanned Document INTERFACE DEFAULT [address] [place] [address] System, Provider Not In Social History Tobacco [...] [facility] 240 [facility] Building [address] [place], [place] [address] Ronald Mills MD [address] [place] [address] [address] [place] [address] documented as of this encounter Procedures Procedure Name Priority Date/Time Associated Diagnosis Comments CT RESULT SCAN 04/11/2021 12:00 AM EDT documented in this encounter Results * CT RESULT SCAN (04/11/2021 12:00 AM EDT) 04/11/2021 us Provider Not In System IMG SCAN REPORTS Edited R esult - Final documented in this encounter Visit Diagnoses Not on filedocumented in this encounter Additional Health Concerns Infection Onset Date Last Indicated Resolved Time COVID-19 03/05/2022 03/05/2022 03/15/2022 7:18 PM EDT Assessment Noted Time PHQ-9 Depression Total Score: 2 11/07/19 19 2:06 PM EDT documented as of this encounter Care Teams Auto Engine Mechanic Relationship Specialty Start Date End Date Caitlyn Bowie MD [address] [address] PCP - General Internal Medicine 05/06/21 documented as of this encounter
--- OUTSIDE RECORDS SUMMARY | 2024-08-08 14:44 | XMS_ITS | Encounter Summary ---
Author Organization [facility] Address [address] [place] [address] Care Team Providers Care Shipping Agent Name Role Phone Victorino Martin MD Primary Care Provider Sharon Odonnell Primary Care Provider Brennan Castro MD Primary Care Provider UnavailHayden Fernandez MD Unavailable [phone] Pallavi Flood NP Unavailable +1- [phone] Caitlyn Bowie MD Primary Care Provider Johnathon shaver Encounter Details Date Type Department Care Team Description 01/22/2018 Press Operator Meat Report Medical Records [address] [place] [address] Abstract, Provider Social History Tobacco Use Types [...] on filedocumented in this encounter Care Teams Shipping Agent Relationship Specialty Start Date End Date Victorino Martin MD PCP - General Internal Medicine 12/21/17 08/01/18 Sharon Vides PCP - General Internal Medicine 08/02/18 05/26/20 Brennan Burnett MD PCP - General Internal Medicine 05/27/20 12/07/21 Caitlyn Bowie MD [address] [place] [address] PCP - General Internal Medicine 12/08/21 Hayden Shah MD [address] [place] [address] [phone] Specialist Cardiovascular Disease 09/01/20 Pallavi Flood NP [address] [place], [place] [phone] Cardiology 09/01/20 documented as of this encounter
--- OUTSIDE RECORDS SUMMARY | 2024-08-08 14:44 | XMS_ITS | Encounter Summary ---
Author Organization [facility] and [facility] Address [address] [place] [address] Care Team Providers Care Cash Register Mechanic Name Role Phone Caitlyn Bowie MD Primary Care Provider +1- [phone] Encounter Details Date Type Department Care Team (Late st Contact Info) Description 09/18/2020 Scanned Document INTERFACE DEFAULT [address] [place] [address] System, Provider Not In Social History Tobacco [...] [facility] [address] [facility] [address] [place] [address] Ronald Mills MD [address] [place] [address] [address] [place] [address] documented as of this encounter Visit Diagnoses Not on filedocumented in this encounter Additional Health Concerns Infection Onset Date Last Indicated Resolved Time COVID-19 03/05/2022 03/05/2022 03/15/2022 7:18 PM EDT Assessment Noted Time PHQ-9 Depression Total Score: 2 11/07/19 19 2:06 PM EDT documented as of this encounter Care Teams Cash Register Mechanic Relationship Specialty Start Date End Date Caitlyn Bowie MD [address] [phone] PCP - General Internal Medicine 05/06/21 documented as of this encounter
--- OUTSIDE RECORDS SUMMARY | 2024-08-08 14:44 | XMS_ITS | Encounter Summary ---
Author Organization [facility] and [facility] Address [address] [place] [address] Care Team Providers Care Front Desk Auxiliary Name Role Phone Caitlyn Bowie MD Primary Care Provider +1- [phone] Encounter Details Date Type Department Care Team (Late st Contact Info) Description 03/11/2021 Scanned Document INTERFACE DEFAULT [address] [place] [address] System, Provider Not In Social History Tobacco [...] Telemedicine Cancer Center at [facility] 240 [facility] Building [address] [place], [place] [phone] Ronald Mills MD [address] [place] [address] [address] [place] [address] documented as of this encounter Procedures Procedure Name Priority Date/Time Associated Diagnosis Comments LAB SCAN 03/11/2021 12:00 AM EDT LAB SCAN 03/11/2021 12:00 AM EDT documented in this encounter Results * LAB SCAN (03/11/2021 12:00 AM EDT) 03/11/2021 us Provider Not In System LAB BLOOD ORDERABLES Carmina l Result * LAB SCAN (03/11/2021 12:00 AM EDT) 03/11/2021 us Provider Not In System LAB BLOOD ORDERABLES Carmina l Result documented in this encounter Visit Diagnoses Not on filedocumented in this encounter Additional Health Concerns Infection Onset Date Last Indicated Resolved Time COVID-19 03/05/2022 03/05/2022 03/15/2022 7:18 PM EDT Assessment Noted Time PHQ-9 Depression Total Score: 2 11/07/19 19 2:06 PM EDT documented as of this encounter Care Teams Front Desk Auxiliary Relationship Specialty Start Date End Date Caitlyn Bowie MD [facility] [address] [address] PCP - General Internal Medicine 05/06/21 documented as of this encounter
--- OUTSIDE RECORDS SUMMARY | 2024-08-08 14:44 | XMS_ITS | Encounter Summary ---
Author Organization [facility] and [facility] Address [address] [place] [address] Care Team Providers Care Block Sorter Name Role Phone Caitlyn Bowie MD Primary Care Provider +1- [phone] Encounter Details Date Type Department Care Team (Late st Contact Info) Description 03/23/2021 Scanned Document INTERFACE DEFAULT [address] [place] [address] System, Provider Not In Social History Tobacco [...] [facility] 240 [facility] Building [address] [place] [address] Ronald Mills MD [address] [place] [address] [address] [place] [address] documented as of this encounter Procedures Procedure Name Priority Date/Time Associated Diagnosis Comments HM FOBT/FIT(OCCULT BLOOD,INSURE) 1 YEAR 03/23/2021 12:00 AM EDT LAB SCAN 03/23/2021 12:00 AM EDT documented in this encounter Results * HM FOBT/FIT(OCCULT BLOOD,INSURE) 1 YEAR (03/23/2021 12:00 AM EDT) 03/23/2021 us Provider Not In System HEALTH MAINTENANCE Final Result * LAB SCAN (03/23/2021 12:00 AM EDT) 03/23/2021 us Provider Not In System LAB BLOOD ORDERABLES Carmina l Result documented in this encounter Visit Diagnoses Not on filedocumented in this encounter Additional Health Concerns Infection Onset Date Last Indicated Resolved Time COVID-19 03/05/2022 03/05/2022 03/15/2022 7:18 PM EDT Assessment Noted Time PHQ-9 Depression Total Score: 2 11/07/19 19 2:06 PM EDT documented as of this encounter Care Teams Block Sorter Relationship Specialty Start Date End Date Caitlyn Bowie MD [address] [address] PCP - General Internal Medicine 05/06/21 documented as of this encounter
--- OUTSIDE RECORDS SUMMARY | 2024-08-08 14:44 | XMS_ITS | Encounter Summary ---
Author Organization [facility] and [facility] Address [address] [place] [address] Care Team Providers Care Sign Letterer Name Role Phone Caitlyn Bowie MD Primary Care Provider +1- [phone] Encounter Details Date Type Department Care Team (Late st Contact Info) Description 01/26/2018 Scanned Document [facility] Health Information Management [address] [place] [address] External, Provider Social History Tobacco Use Types [...] 1:00 PM EDT Telemedicine Cancer Center at [facility] 240 [facility] Building [address] [place], [place] [phone] Ronald Mills MD [address] [facility] [address] [place] [address] documented as of this encounter Visit Diagnoses Not on filedocumented in this encounter Additional Health Concerns Infection Onset Date Last Indicated Resolved Time COVID-19 03/05/2022 03/05/2022 03/15/2022 7:18 PM EDT documented as of this encounter Care Teams Sign Letterer Relationship Specialty Start Date End Date Caitlyn Bowie MD 3400 [facility] 1 [place] [address] PCP - General Internal Medicine 05/06/21 Henry Kelly MD Pulmonary Department 175 [facility], [address] [place] [address] Physician Pulmonary Disease 09/06/17 06/22/20 documented as of this encounter
--- OUTSIDE RECORDS SUMMARY | 2024-08-08 14:44 | XMS_ITS | Encounter Summary ---
Author Organization [facility] and [facility] Address [address] [place] [address] Care Team Providers Care Resolution Specialist Name Role Phone Caitlyn Bowie MD Primary Care Provider +1- [phone] Encounter Details Date Type Department Care Team (Late st Contact Info) Description 04/10/2021 Scanned Document INTERFACE DEFAULT [address] [place] [address] System, Provider Not In Social History Tobacco [...] PM EDT Telemedicine [facility] at [facility] 240 [facility] Building [address] [place] [address] Ronald Mills MD [address] [place] [address] [address] [place] [address] documented as of this encounter Procedures Procedure Name Priority Date/Time Associated Diagnosis Comments XRAY RESULT SCAN 04/10/2021 12:00 AM EDT CARDIAC EKG RESULT SCAN 04/10/2021 12:00 AM EDT CARDIAC EKG RESULT SCAN Routine 04/10/2021 documented in this encounter Results * CARDIAC EKG RESULT SCAN (04/10/2021 12:00 AM EDT) 04/10/2021 us Provider Not In System CV CARDIAC REPORT (CVR) F inal Result * Cardiac EKG Result Scan (04/10/2021) us Provider External CV CARDIAC REPORT (CVR) Final Result * XRAY RESULT SCAN (04/10/2021 12:00 AM EDT) 04/10/2021 us Provider Not In System IMG SCAN REPORTS Edited R esult - Final documented in this encounter Visit Diagnoses Not on filedocumented in this encounter Additional Health Concerns Infection Onset Date Last Indicated Resolved Time COVID-19 03/05/2022 03/05/2022 03/15/2022 7:18 PM EDT Assessment Noted Time PHQ-9 Depression Total Score: 2 11/07/19 19 2:06 PM EDT documented as of this encounter Care Teams Resolution Specialist Relationship Specialty Start Date End Date Caitlyn Bowie MD [address] [address] PCP - General Internal Medicine 05/06/21 documented as of this encounter
--- OUTSIDE RECORDS SUMMARY | 2024-08-08 14:44 | XMS_ITS | Encounter Summary ---
Author Organization [facility] Address [address] [place] [phone] Care Team Providers Care Admissions Clinician Name Role Phone Caitlyn Bowie MD Primary Care Provider +1- [phone] Encounter Details Date Type Department Care Team (Late st Contact Info) Description 02/15/2021 Scanned Document INTERFACE DEFAULT [address] [place] [address] System, Provider Not In Social History Tobacco [...] Telemedicine Cancer Center at [facility] 240 [facility] Building [address] [place] [address] Ronald Mills MD [address] [place] [address] [address] [place] [address] documented as of this encounter Visit Diagnoses Not on filedocumented in this encounter Additional Health Concerns Infection Onset Date Last Indicated Resolved Time COVID-19 03/05/2022 03/05/2022 03/15/2022 7:18 PM EDT Assessment Noted Time PHQ-9 Depression Total Score: 2 11/07/19 19 2:06 PM EDT documented as of this encounter Care Teams Admissions Clinician Relationship Specialty Start Date End Date Caitlyn Bowie MD [address] [address] PCP - General Internal Medicine 05/06/21 documented as of this encounter
--- OUTSIDE RECORDS SUMMARY | 2024-08-08 14:44 | XMS_ITS | Encounter Summary ---
Author Organization [facility] Address [address] [place] [address] Care Team Providers Care Health Assessment And Treatment Teacher Name Role Phone Caitlyn Bowie MD Primary Care Provider +1- [phone] Encounter Details Date Type Department Care Team (Late st Contact Info) Description 04/22/2021 Scanned Document INTERFACE DEFAULT [address] [place] [address] System, Provider Not In Social History Tobacco [...] – [facility] 240 [facility] Building [address] [place], [place] [phone] Ronald Mills MD [address] [place] [address] [address] [place] [address] documented as of this encounter Procedures Procedure Name Priority Date/Time Associated Diagnosis Comments CT RESULT SCAN 04/22/2021 12:[address] RESULT SCAN 04/22/2021 12:[address] RESULT SCAN 04/22/2021 12:00 AM EDT documented in this encounter Results * CT RESULT SCAN (04/22/2021 12:00 AM EDT) 04/22/2021 us Provider Not In System IMG SCAN REPORTS Final Re sult * CT RESULT SCAN (04/22/2021 12:00 AM EDT) 04/22/2021 us Provider Not In System IMG SCAN REPORTS Final Re sult * CT RESULT SCAN (04/22/2021 12:00 AM EDT) 04/22/2021 us Provider Not In System IMG SCAN REPORTS Final Re sult documented in this encounter Visit Diagnoses Not on filedocumented in this encounter Additional Health Concerns Infection Onset Date Last Indicated Resolved Time COVID-19 03/05/2022 03/05/2022 03/15/2022 7:18 PM EDT Assessment Noted Time PHQ-9 Depression Total Score: 2 11/07/19 19 2:06 PM EDT documented as of this encounter Care Teams Health Assessment And Treatment Teacher Relationship Specialty Start Date End Date Caitlyn Bowie MD [facility] [address] [address] PCP - General Internal Medicine 05/06/21 documented as of this encounter
--- OUTSIDE RECORDS SUMMARY | 2024-08-08 14:44 | XMS_ITS | Encounter Summary ---
Author Organization [facility] and [facility] Address [address] [place] [address] Care Team Providers Care Director Of Accounting Name Role Phone Caitlyn Bowie MD Primary Care Provider +1- [phone] Encounter Details Date Type Department Care Team (Late st Contact Info) Description 01/07/2014 Documentation [facility] [address] [place] [address] Shilpi Ibarra [address] [place] [address] Social History Tobacco Use Types Packs/Day Years [...] as of this encounter Progress Notes * Shilpi Ibarra - 01/07/2014 10:57 AM EDT Images from the original note were not included. [facility] Progress Note This is a 68 y.o. female who was provided services by [facility]. Service Provided By:: Shilpi Ibarra Patient Status: new Length of Appointment: 60 minutes Pre-Treatment Total: 3.6 Post-Treatment Total: 1.2 documented in this encounter Plan of Treatment Upcoming Encounters Date Type Department Care Team (Late st Contact Info) Description 10/31/2024 1:00 PM EDT Telemedicine Cancer Center at [facility] 240 [facility] Building [address] [place], [place] [address] Ronald Mills MD [address] [place] [address] documented as of this encounter Visit Diagnoses Not on filedocumented in this encounter Additional Health Concerns Infection Onset Date Last Indicated Resolved Time COVID-19 03/05/2022 03/05/2022 03/15/2022 7:18 PM EDT documented as of this encounter Care Teams Director Of Accounting Relationship Specialty Start Date End Date Caitlyn Bowie MD [address] [place] [address] PCP - General Internal Medicine 05/06/21 Henry Kelly MD Pulmonary Department 175 [facility], [address] [place] [address] Physician Pulmonary Disease 09/06/17 06/22/20 documented as of this encounter
--- OUTSIDE RECORDS SUMMARY | 2024-08-08 14:44 | XMS_ITS | Encounter Summary ---
Author Organization [facility] Address [address] [place] [address] Care Team Providers Care Semiconductor Processing Group Leader Name Role Phone Victorino Martin MD Primary Care Provider UnavailSharon Kimbrough Primary Care Provider Unava ilable Brennan Burnett MD Primary Care Provider Unavailab Hayden Montes MD Unavailable [phone] Pallavi Flood NP Unavailable [phone]- [phone] Caitlyn Bowie MD Primary Care Provider Unava chhaya Reason for Visit * Reason Onset Date Comments Medical Records 05/10/2018 Encounter Details Date Type Department Care Team Description 05/10/2018 Telephone Pulmonology - [address] [place] [address] Henry Kelly MD Medical Records Social History Tobacco Use Types Packs/Day Years [...] * Telephone Encounter - Ace Patel - 05/10/2018 11:47 AM EDT Patient is calling in, in regards to the records that you gave to her the other day. States that there was 2 copies of the bronchoscopy. But the one that she had done at [facility] was not in the records, nor was the information about all the times that she had pnuemonia. She wants to make sure thatyou meant to give her two copies of the same procedure. documented in this encounter Plan of Treatment Not on file documented as of this encounter Visit Diagnoses Not on filedocumented in this encounter Care Teams Semiconductor Processing Group Leader Relationship Specialty Start Date End Date Victorino Martin MD PCP - General Internal Medicine 12/21/17 08/01/18 Sharon Vides PCP - General Internal Medicine 08/02/18 05/26/20 Brennan Burnett MD PCP - General Internal Medicine 05/27/20 12/07/21 Caitlyn Bowie MD [address] [place] [address] PCP - General Internal Medicine 12/08/21 Hayden Shah MD [address] [place] [address] Specialist Cardiovascular Disease 09/01/20 Pallavi Flood NP [address] [place] [address] Cardiology 09/01/20 documented as of this encounter
--- OUTSIDE RECORDS SUMMARY | 2024-08-08 14:44 | XMS_ITS | Encounter Summary ---
Author Organization [facility] and [facility] Address [address] [place] [phone] Care Team Providers Care Seafood Process Worker Name Role Phone Caitlyn Bowie MD Primary Care Provider +1- [phone] Encounter Details Date Type Department Care Team (Late st Contact Info) Description 04/11/2021 Scanned Document [facility] Health Information Management [address] [place] [address] External, Provider Social History Tobacco Use Types [...] 1:00 PM EDT Telemedicine Cancer Center at [facility] 240 [facility] Building [address] [place], [place] [phone] Ronald Mills MD [address] [place] [address] [address] [place] [address] documented as of this encounter Visit Diagnoses Not on filedocumented in this encounter Additional Health Concerns Infection Onset Date Last Indicated Resolved Time COVID-19 03/05/2022 03/05/2022 03/15/2022 7:18 PM EDT Assessment Noted Time PHQ-9 Depression Total Score: 2 11/07/19 19 2:06 PM EDT documented as of this encounter Care Teams Seafood Process Worker Relationship Specialty Start Date End Date Caitlyn Bowie MD [address] [address] PCP - General Internal Medicine 05/06/21 documented as of this encounter
--- OUTSIDE RECORDS SUMMARY | 2024-08-08 14:44 | XMS_ITS | Encounter Summary ---
Author Organization [facility] Address [address] [place] [address] Care Team Providers Care Progressive Die Maker Name Role Phone Brennan Burnett MD Primary Care Provider Unavailab Hayden Montes MD Unavailable [phone] Pallavi Flood NP Unavailable + [phone] Caitlyn Bowie MD Primary Care Provider Unava ilable Reason for Visit * Reason Onset Date Comments other 09/30/2020 Chest discomfort and tingling in arms Encounter Details Date Type Department Care Team Description 09/30/2020 Telephone Cardio [facility] [address] [place] [address] [address] [place] [address] Hayden Shah MD [address] [place] [phone] other (Chest discomfort and tingling in arms) Social History Tobacco Use Types Packs/Day Years [...] AM EDT documented as of this encounter Miscellaneous Notes * Telephone Encounter - Marcy Koo - 09/30/2020 2:28 PM EDT Reports has had worsening l sided chest pressure and l arm pain Since she woke up ~ 9am Rated 02/16.States sx have worsened and reports saw plasterer foreman other day and was unable to walk due to developing heaviness in her chest that worsened and states plasterer foreman advised er (Patient was at [facility] at an appt and instead of going to er -she went home) Due to present sx 02/16 chest heaviness and lower leg edema-advised ambulance to er. Patient states she will call 911 for ambulance to er. I called report and also let them know patient was there also 09/15-09/18. * Telephone Encounter - Xenia Whitten - 09/30/2020 1:42 PM EDT 09/30/20: pt stated that the other day she went on a 6 minute walk and she felt like her chest was going to explode. Pt also stated that she started having tingling in her arms and had to grab on to a rail nearby. Pt stated that he feet and legs are swollen. Pt stated that the COFFEE SUPERVISOR from her PCP's office even increased the Lasix. Pt stated that her heart is racing when she walks up the stairs. Pt c na be reached at [phone]. documented in this encounter Plan of Treatment Not on file documented as of this encounter Visit Diagnoses Not on filedocumented in this encounter Care Teams Progressive Die Maker Relationship Specialty Start Date End Date Brennan Burnett MD PCP - General Internal Medicine 05/27/20 12/07/21 Caitlyn Bowie MD [address] [place] [address] PCP - General Internal Medicine 12/08/21 Hayden Shah MD [address] [place] [address] Specialist Cardiovascular Disease 09/01/20 Pallavi Flood NP [address] [place] [address] Cardiology 09/01/20 documented as of this encounter
--- OUTSIDE RECORDS SUMMARY | 2024-08-08 14:44 | XMS_ITS | Encounter Summary ---
Author Organization [facility] Address [address] [place] [phone] Care Team Providers Care School Bus Monitor Name Role Phone Caitlyn Bowie MD Primary Care Provider +1- [phone] Encounter Details Date Type Department Care Team (Late st Contact Info) Description 08/23/2017 Scanned Document [facility] Health Information Management [address] [place] [address] External, Provider Social History Tobacco Use Types [...] Cancer Center at [facility] 240 [facility] Building [address] [place], [place] [phone] Ronald Mills MD [address] [place] [address] [address] [place] [address] documented as of this encounter Procedures Procedure Name Priority Date/Time Associated Diagnosis Comments LAB SCAN Routine 08/23/2017 documented in this encounter Results * Lab Scan (08/23/2017) Blood specimen (specimen) us Provider External LAB BLOOD ORDERABLES Final Res ult documented in this encounter Visit Diagnoses Not on filedocumented in this encounter Additional Health Concerns Infection Onset Date Last Indicated Resolved Time COVID-19 03/05/2022 03/05/2022 03/15/2022 7:18 PM EDT documented as of this encounter Care Teams School Bus Monitor Relationship Specialty Start Date End Date Caitlyn Bowie MD 3400 [facility] 1 [place] [address] PCP - General Internal Medicine 05/06/21 Henry Kelly MD Pulmonary Department [address] [facility], [address] [place] [address] Physician Pulmonary Disease 09/06/17 06/22/20 documented as of this encounter
--- OUTSIDE RECORDS SUMMARY | 2024-08-08 14:44 | XMS_ITS | Clinical Summary ---
Author Organization 175 [facility] Address [address] [place] [address] Phone Care Team Providers Care Panman Name Role Phone ApolinarBrennan mcdonald Donna STARK Primary Care Provider Allergies Active Allergy Reactions Criticality Noted Date Comments Amlodipine Other Medium 11/23/2020 flushing Avanafil Anaphylaxis High 06/15/2024 Avocado High 04/15/2013 Other reaction(s): Resp Distress Azithromycin 03/05/2013 Barium Iodide High 01/19/2016 Other Reaction(s): Rash/Dermatitis Other reaction(s): Throat Closes Bee Pollen 04/15/2013 Other reaction(s): Resp Distress Allergic to bee stings Ciprofloxacin 08/26/2014 Patient reported that she couldn't walk Clarithromycin Wheezing High 11/07/2012 Other Reaction(s): Rash/Dermatitis Diatrizoate Shiloh-Diatrizoat Sod 09/16/2016 Diatrizoate Meglumine Swelling High 09/23/2015 Throat tightness Diclofenac Anaphylaxis,Wheezing High 11/07/2012 Other Reaction(s): Rash/Dermatitis Diclofenac Sodium 09/26/2014 Erythromycin Anaphylaxis,Wheezing High 11/07/2012 Other Reaction(s): Rash/Dermatitis Gentamicin Anaphylaxis,Wheezing High 11/07/2012 Other Reaction(s): Rash/Dermatitis Iodinated Contrast Media Swelling,Wheezing High 07/2012 Other Reaction(s): Rash/Dermatitis Isosorbide Mononitrate Headache 11/23/2020 Levofloxacin Nausea And Vomiting Medium 02/18/2013 painful tight joints Metronidazole High 10/17/2014 Other reaction(s): Resp Distress Visual changes, back pain, weakness Mold High 02/18/2013 Other reaction(s): Resp Distress Morphine Nausea And Vomiting Medium 09/26/2014 Other Reaction(s): OTHER Flushed, almost passed out Moxifloxacin Swelling,Wheezing,An aphylaxis High 11/07/2012 Other Reaction(s): Rash/Dermatitis Other reaction(s): Rash Other Other 05/09/2008 muscles relaxers Some muscle relaxers Penicillins Anaphylaxis,Wheezing High 11/07/2012 Other Reaction(s): Rash/Dermatitis Procaine 01/19/2016 Shrimp Cough,Itching,Unknow n Medium 12/16/2018 Sulfa (Sulfonamide Antibiotics) Anaphylaxis,Wheezing High 11/07/2012 Other Reaction(s): Rash/Dermatitis Sulfur Hives,Itching,Rash Low 05/09/2008 Vancomycin Anaphylaxis,Wheezing High 11/07/2012 Other Reaction(s): Rash/Dermatitis Medications Medication Sig Dispensed Refills Start Date End Date Status ASCORBIC ACID PO Take by mouth. Acti ve ELDERBERRY FRUIT ORAL Elderberry 575 MG/5ML Syrup Take ??by mouth. - Oral Active epinephrine (EPIPEN 2-KORI INJ) Inject as directed. Activ e IRON, FERROUS SULFATE, ORAL Take by mouth. Active fluticasone propion-salmeteroL (Advair HFA) 230-21 mcg/actuation inhaler INHALE 2 PUFFS TWO TIMES A DAY 07/06/2020 Active furosemide (LASIX) 20 mg tablet Take 20 mg by mouth daily. Active levothyroxine (SYNTHROID, LEVOTHROID) 25 mcg tablet Take 25 mcg by mouth daily. 1 tab daily 2 tabs Sat. And Sun Active lifitegrast 5 % dropperette apply to the eye 2 times daily. 1 g - Ophthalmic Active magnesium oxide 500 mg capsule Take by mouth. Active meclizine (ANTIVERT) 25 mg tablet Take 25 mg by mouth as needed. Active metoprolol succinate (TOPROL-XL) 50 mg 24 hr tablet Take 50 mg by mouth daily. Active montelukast (SINGULAIR) 10 mg tablet Take 1 Tab by mouth at bedtime. 05/11/2018 Active oxymetazoline HCl (NASAL SPRAY SINUS NASL) by Nasal route. Active rosuvastatin calcium (ROSUVASTATIN ORAL) Take by mouth. A ctive saccharomyces boulardii (FLORASTOR) 250 mg capsule Take by mouth. Active traZODone (DESYREL) 100 mg tablet Take 100 mg by mouth at bedtime. Active warfarin (COUMADIN) 1 mg tablet Take 1 mg by mouth See Admin Instructions. May cause heavy bleeding. Take at same time every day. Do not change dietary habits. Active albuterol HFA (PROAIR HFA ; PROVENTIL HFA ; VENTOLIN HFA) 90 mcg/actuation inhaler Inhale 2 puffs by mouth Every 4 hours as needed. 06/25/2018 Active cefpodoxime (VANTIN) 200 mg tablet TAKE ONE TABLET BY MOUTH EVERY 12 HOURS WITH FOOD 05/14/2024 Active cetirizine (ZyrTEC) 10 mg tablet Take 1 tablet (10 mg total) by mouth daily. Active diazePAM (VALIUM) 5 mg tablet Take 1 tablet (5 mg total) by mouth. Active docusate sodium (COLACE) 100 mg capsule Take 2 capsules (200 mg total) by mouth 2 times daily. Active doxycycline (ADOXA) 100 mg tablet Take 1 tablet (100 mg total) by mouth 2 (two) times a day. for 7 days 04/10/2024 Active fluticasone propionate (FLONASE) 50 mcg/actuation nasal spray Administer 1 spray into affected nostril(s) daily. Active folic acid (FOLVITE) 1 mg tablet Take 1 tablet (1 mg total) by mouth daily. 05/01/2024 Active potassium chloride (KLOR-CON) 20 mEq packet DISSOLVE AND TAKE TWO PACKETS BY MOUTH EVERY DAY 05/13/2024 Active spironolactone (ALDACTONE) 25 mg tablet Take 1 tablet (25 mg total) by mouth 1 (one) time each day. 03/26/2024 Active Active Problems Problem Noted Date Diagnosed Date Hypertension 09/02/2020 Overview (05/16/2024): Last Assessment & Plan: 104/58 in office today, well-controlled. Continue metoprolol and torsemide. Pericardial effusion 09/02/2020 Overview (05/16/2024): Last Assessment & Plan: Small to moderate on echocardiogram. Pictures were not available for our review given this was done at another practice. I do not believe this is contributing to her symptoms. We will continue to monitor. Shortness of breath 09/02/2020 Overview (05/16/2024): Last Assessment & Plan: Clinically she appears quite well. Her lungs are clear, she has no bilateral lower extremity edema, and I do not appreciate any JVD. Her weight is stable. She reports abdominal bloating. She has been prescribed torsemide 20 mg as needed by her previous signals intelligence superintendent which she has taken sporadically. I have asked her to take this daily to see if this improves her symptoms and she has a follow-up appointment with Dr. Shah on September 16 which she will keep. We also had a long conversation regarding the fact that she is seeing 3 different signals intelligence superintendent for the same problems. We informed her that this is dangerous as our systems are not connected and she could be prescribed and treated different medications without us knowing. We did inform her that she would need to choose which practice that she would like to stay with and commit to that practice. We will not be seeing her any longer if she continues to see Dr. Avalos or her signals intelligence superintendent at [facility]. She verbalized understanding of this and expressed her interest in transferring her care to our practice. I do not believe her pericardial effusion is contributing to her symptoms as there is no evidence of RV compromise. She has been advised to undergo the stress echocardiogram which was previously ordered. She will follow-up in a few weeks to see how her symptoms are. Traumatic hematoma of right lower leg 03/06/2019 Antiphospholipid antibody syndrome 12/24/2018 Adrenal insufficiency 08/23/2018 Allergic rhinitis 08/23/2018 Hyperparathyroidism 08/23/2018 MRSA infection 08/23/2018 Overview (05/16/2024): 06/2009, s/p thoracotomy infection Osteoarthritis 08/23/2018 Radiation-induced pulmonary fibrosis 11/13/2017 Bronchiectasis 08/08/2017 Leg edema 08/08/2017 Restrictive lung disease 08/08/2017 Chronic obstructive pulmonary disease 04/13/2017 Fibromyalgia 04/13/2017 Congestive heart failure 04/04/2017 Heterozygous factor V Leiden mutation 04/04/2017 Obstructive sleep apnea syndrome 04/04/2017 Overview (05/16/2024): CPAP Pleural effusion 04/04/2017 Pulmonary hypertension 04/04/2017 Multiple pulmonary nodules 03/17/2017 Diverticulitis of sigmoid colon 12/15/2016 Anxiety 12/07/2016 Hyperlipidemia 12/07/2016 Hypothyroidism 12/07/2016 Peripheral neuropathic pain 12/07/2016 Gastroesophageal reflux disease 11/17/2016 Osteoporosis 11/17/2016 Insomnia 10/18/2016 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 Elevated liver enzymes 09/23/2015 Cataract 08/26/2014 Glaucoma suspect 08/26/2014 Optic neuropathy 08/26/2014 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 Akathisia 04/15/2013 Postconcussion syndrome 02/18/2013 Encounters Date Type Department Care Team Description 08/08/2024 Telephone [facility] Speech Therapy [address] [phone] Daphne Alarcon, FUN HOUSE ATTENDANT Memory Loss (Returned pt call from 08/07 about recent missed visit. Pt is not interested in in person f/u right now due to cold weather and other medical issues. She will f/u with medical team if she wants to address cognitive status in future) 07/04/2024 Telephone Gastroenterology - 299 [facility] [address] [phone] Tim Gomes MD 07/01/2024 Telephone Gastroenterology - [address] [phone] Tim Gomes MD 06/20/2024 9:30 AM EST Evaluation [facility] Speech Therapy [address] [phone] Daphne Alarcon, FUN HOUSE ATTENDANT Cognitive communication disorder (Primary Dx); White matter lesion of central nervous system; Unsp symptoms and signs w cognitive functions and awareness; Gait abnormality 06/20/2024 Plan of Care Documentation 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); Unsp symptoms and signs w cognitive functions and awareness; Spasm; Gait abnormality; Ataxia from Last 3 Months Immunizations Name Administration Dates Next Due Influenza trivalent, 0.5mL, preservative free (Fluarix; FluLaval; Fluzone) ages 6mo and older (Afluria) 3 years and older 04/18/2016 Pneumococcal polysaccharide 23 valent (Pneumovax 23) 2yo and older 09/17/2015 Tdap Tetanus diptheria acell ular pertussis (Boostrix; Adacel) 7yo and older 02/17/2016 Surgical History Surgery Date Site/Laterality Comments TONSILLECTOMY PROCEDURE: HISTORICAL TONSILLECTOMY OTHER SURGICAL HISTORY PROCEDURE: DE RMVL LUNG XCP TOT PNEUMONECTOMY SLEEVE LOBECTOMY; COMMENT: LLL OTHER SURGICAL HISTORY 01/27/2017 PROCEDURE: PULMONOLOGY BRONCHOSCOPY; COMMENT: Mult non adherant clots in trachea, R&L bronchus suctioned, 1+polymor leuk/1+ grm+ cocci TONSILLECTOMY PROCEDURE: HISTORICAL TONSILLECTOMY; COMMENT: as a child,complicated by excessive bleeding ADENOIDECTOMY PROCEDURE: HISTORICAL ADENOIDECTOMY; COMMENT: as a child, complicated by excessive bleeding HYSTERECTOMY PROCEDURE: HISTORICAL TOTAL HYSTERECTOMY WITH BSO WISDOM TOOTH EXTRACTION PROCEDURE: HISTORICAL WISDOM TEETH EXTRACTION COLONOSCOPY 05/03/2015 PROCEDURE: HISTORICAL COLONOSCOPY; COMMENT: no pathology report UPPER GASTROINTESTINAL ENDOSCOPY 05/03/2015 PROCEDURE: DE UPPER GI ENDOSCOPY PERFORMED Medical History Medical History Date Comments Akathisia 04/15/2013 DX:Akathisia Anxiety 12/07/2016 DX:Anxiety Bronchiectasis ([facility] 08/08/2017 DX:Bron chiectasis ([facility]) Cataract 08/26/2014 DX:Cataract Chronic obstructive pulmonar y disease ([facility]) 04/13/2017 DX:Chronic obstructive pulmo nary disease ([facility]) 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 DX:Complica cole migraine Congestive heart failure ([facility]) 04/04/2017 DX:Congestive heart failure (HCC) History of deep vein thrombosis 04/04/2017 DX:History of deep vein thrombosis Diverticulitis of sigmoid colon 12/15/2016 DX:Diverticulitis of sigmoid colon Elevated liver enzymes 09/23/2015 DX:Elevat ed liver enzymes Fibromyalgia 04/13/2017 DX:Fibromyalgia Gastroesophageal reflux disease 11/17/2016 DX:Gastroesophageal reflux disease Glaucoma suspect 08/26/2014 DX:Glaucoma dori pect Heterozygous factor V Leiden mutation (CMS/HCC) 04/04/2017 DX:Heterozygous factor V Lei den mutation (HCC) History of pulmonary embolism 05/15/2017 DX :History of pulmonary embolism Hyperlipidemia 12/07/2016 DX:Hyperlipidemi a Hypothyroidism 12/07/2016 DX:Hypothyroidis m Insomnia 10/18/2016 DX:Insomnia Leg edema 08/08/2017 DX:Leg edema Multiple pulmonary nodules 03/17/2017 DX:Mu ltiple pulmonary nodules Optic neuropathy 08/26/2014 DX:Optic neurop athy Peripheral neuropathic pain 12/07/2016 DX:P eripheral neuropathic pain Pleural effusion 04/04/2017 DX:Pleural effu yaritza Postconcussion syndrome 02/18/2013 DX:Postc oncussion syndrome Pulmonary hypertension (CMS/HCC) 04/04/2017 DX:Pulmonary hypertension (HCC) Restrictive lung disease 08/08/2017 DX:Rest rictive lung disease 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 DX:Zinc deficien cy Obstructive sleep apnea syndrome 04/04/2017 DX:Obstructive sleep apnea syndrome; COMMENT: CPAP Radiation-induced pulmonary fibrosis (CMS/HCC) 11/13/2017 DX:Radiation-induced pulmona ry fibrosis (HCC) Adrenal insufficiency (CMS/HCC) 08/23/2018 DX:Adrenal insufficiency (HCC) Hyperparathyroidism (CMS/HCC) 08/23/2018 DX :Hyperparathyroidism (HCC) Osteoporosis 11/17/2016 DX:Osteoporosis History of rheumatic fever 12/12/2015 DX:Hi story of rheumatic fever; COMMENT: With [facility] Allergic rhinitis 08/23/2018 DX:Allergic rh initis Osteoarthritis 08/23/2018 DX:Osteoarthriti s History of seizures 08/23/2018 DX:History o f seizures; COMMENT: Temporal lobe seizures MRSA infection 08/23/2018 DX:MRSA infectio n; COMMENT: 06/2009, s/p thoracotomy infection History of lung cancer 04/04/2017 DX:Histor y of lung cancer; COMMENT: T2 N2 Mx LLL resection, Chemo, RT, Cisplatin, Vinorelbine [id number] 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 DX:Antiphospholipid antibody syndrome (HCC) 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 Hyperparathyroidism (CMS/HCC) DX :Hyperparathyroidism (HCC) Adrenal insufficiency (CMS/HCC) DX:Adrenal insufficiency (HCC) Family History Medical History Relation Name Comments Cirrhosis Father age 65 Lung cancer Maternal Grandfather Lung cancer Maternal Grandmother Lung cancer Mother CAD,CKD,AAA,Cer ebral Aneurysm, Thyroid disorder, age 78 Other: bleeding disorder Paternal Grandmother from excessive bleeding in childbirth Myeloproliferative Disorder Sister 1 AML, age 66 Leukemia Uncle Relation Name Status Comments Father Maternal Grandfather Maternal Grandmother Mother Paternal Grandmother Sister 1 Sister 2 Alive Uncle Social History Tobacco Use Types Packs/Day Years Used Date Smoking Tobacco: Never Smokeless Tobacco: Never Tobacco Cessation:Counseling Given: Not Answered Alcohol Use Standard Drinks/Week Comments No 0 (1 standard drink = 0.6 oz pur e alcohol) Sex and Gender Information Value Date Recorded Sex Assigned at Female 06/15/2024 3:38 PM EST Gender Identity Female 06/15/2024 3:38 PM EST Sexual Orientation Straight 06/15/2024 3: 38 PM EST Job Start Date Occupation Industry Not on file Not on file Not on file Obstetrics History Last Filed Vital Signs Vital Sign Reading Time Taken Comments Blood Pressure 120/55 06/15/2024 2:56 PM EST Pulse 84 06/15/2024 2:56 PM EST Temperature 36.8 ??C (98.2 ??F) 06/15/2024 2:56 PM ES T Respiratory Rate 16 06/15/2024 2:56 PM EST Oxygen Saturation 99% 06/15/2024 2:56 PM EST Inhaled Oxygen Concentration - - Weight 57.2 kg (126 lb) 06/15/2024 11:40 AM EST Height 157.5 cm (5' 2 ) 06/15/2024 11:40 AM EST Body Mass Index 23.05 06/15/2024 11:40 AM EST Plan of Treatment Upcoming Encounters Date Type Department Care Team (Late st Contact Info) Description 08/23/2024 1:20 PM EST Office Visit Gastroenterology - [address] [facility] [address] [place] [phone] Saima Amor, UROLOGIC SURGEON [address] [facility] [address] [place] [address] 08/27/2024 3:00 PM EST Office Visit [facility] [address] [place] [address] Ayanna Jaffe MD [address] [place] [address] Health Maintenance Due Date Last Done Comments Zoster Vaccines (1 of 2) 1964 RSV Immunization Patients 60+ Years Old (1 - 1-dose 75+ series) 2018 COVID-19 Vaccine (3 - Moderna risk series) 10/01/2020 09/03/2020, 08/06/2020 Cholesterol Screening (Lipid Panel) 06/12/2022 03/18/2016 Depression Screening 06/12/2022 Falls Risk Assessment 06/12/2022 Medicare Annual Wellness Visit 06/12/2022 Osteoporosis Screening (Bone Density Screening) 06/12/2022 Social Influencers of Health Screening 06/12/2022 Hypertension/CHF/CAD Annual BMP Blood Test 06/15/2025 06/15/2024, 04/23/2024, 04/05/2022, Additional history exists DTaP,Tdap,and Td Vaccines (3 - Td or Tdap) 02/27/2026 02/28/2016, 02/17/2016 Pneumococcal Vaccine: 65+ Years Completed 08/31/2021, 03/25/2016, 09/17/2015, Additional history exists Influenza Vaccine Completed 06/12/2024, , 05/13/2022, Additional history exists HIB Vaccines Aged Out No longer eligi ble based on patient's age to complete this topic HPV Vaccines Aged Out No longer eligi ble based on patient's age to complete this topic Hepatitis A Vaccines Aged Out No long er eligible based on patient's age to complete this topic Hepatitis B Vaccines Aged Out No long er eligible based on patient's age to complete this topic IPV Vaccines Aged Out No longer eligi ble based on patient's age to complete this topic MMR Vaccines Aged Out No longer eligi ble based on patient's age to complete this topic Meningococcal ACWY Vaccine Aged Out N o longer eligible based on patient's age to complete this topic RSV Immunization Patients Under 20 months Aged Out No longer eligible based on patient's age to complete this topic Varicella Vaccines Aged Out No longer eligible based on patient's age to complete this topic Goals Goal Patient Goal Type Associated Problems Recent Progress Patient-Stated? Author ST [facility] General No Daphne Alarcon, FUN HOUSE ATTENDANT Note: Pt will improve cognitive linguistic function to participate and communicate in iADLs mod I ST STGs General No Daphne Alarcon, FUN HOUSE ATTENDANT Note: Pt will participate with development of [...] tasks with min assist to be 80% Procedures Procedure Name Priority Date/Time Associated Diagnosis Comments CBC WITH AUTO DIFFERENTIAL STAT 06/15/2024 1:26 PM EST PROTHROMBIN TIME WITH INR STAT 06/15/2024 1:26 PM EST COMPREHENSIVE METABOLIC PANEL STAT 06/15/2024 1:26 PM EST CBC AND DIFFERENTIAL STAT 06/15/2024 1:26 PM EST VAS US DUPLEX LOWER EXT VENOUS LEFT STAT 06/15/2024 12:24 PM EST Pain from Last 3 Months Results * (ABNORMAL) CBC auto differential (06/15/2024 1:26 PM EST) WBC 13.2(H) 4.8 - 10.8 K/[facility] LAB HEMETOLOGY METHOD 06/15/2024 1:39 PM [facility] RBC 3.70(L) 3.80 - 4.80 M/mcL LAB HEMETOLOGY METHOD 06/15/2024 1:39 PM [facility] Hemoglobin 12.0 11.5 - 16.0 g/dL LAB HEMETOLOGY METHOD 06/15/2024 1:39 PM [facility] Hematocrit 37.5 35.0 - 47.0 % LAB HEMETOLOGY METHOD 06/15/2024 1:39 PM [facility] MCV 100.3(H) 79.0 - 98.0 FL LAB HEMETOLOGY METHOD 06/15/2024 1:39 PM [facility] MCH 32.1(H) 27.0 - 32.0 pcg LAB HEMETOLOGY METHOD 06/15/2024 1:39 PM [facility] MCHC 32.0 32.0 - 37.0 g/dL LAB HEMETOLOGY METHOD 06/15/2024 1:39 PM [facility] RDW 14.3 11.0 - 15.0 % LAB HEMETOLOGY METHOD 06/15/2024 1:39 PM [facility] Platelets 201 130 - 400 K/mcL LAB HEMETOLOGY METHOD 06/15/2024 1:39 PM [facility] MPV 11.1(H) 7.0 - 11.0 FL LAB HEMETOLOGY METHOD 06/15/2024 1:39 PM [facility] NRBC 0.0 <1.0 % LAB HEMETOLOGY METHOD 06/15/2024 1:39 PM [facility] NRBC Absolute 0.00 <0.10 K/mcL LAB HEMETOLOGY METHOD 06/15/2024 1:39 PM [facility] Neutrophils Relative 85.5 % LAB HEMETOLOGY METHOD 06/15/2024 1:39 PM [facility] Lymphocytes Relative 4.8 % LAB HEMETOLOGY METHOD 06/15/2024 1:39 PM [facility] Monocytes Relative 7.4 % LAB HEMETOLOGY METHOD 06/15/2024 1:39 PM [facility] Eosinophils Relative 1.1 % LAB HEMETOLOGY METHOD 06/15/2024 1:39 PM [facility] Basophils Relative 0.4 % LAB HEMETOLOGY METHOD 06/15/2024 1:39 PM [facility] Immature Granulocytes Relative 0.8 % LAB HEMETOLOGY METHOD 06/15/2024 1:39 PM [facility] Neutrophils Absolute 11.28(H) 1.50 - 7.00 K/mcL LAB HEMETOLOGY METHOD 06/15/2024 1:39 PM [facility] Lymphocytes Absolute 0.63(L) 1.00 - 5.00 K/mcL LAB HEMETOLOGY METHOD 06/15/2024 1:39 PM [facility] Monocytes Absolute 0.98 0.20 - 1.00 K/mcL LAB HEMETOLOGY METHOD 06/15/2024 1:39 PM [facility] Eosinophils Absolute 0.14 0.00 - 0.50 K/mcL LAB HEMETOLOGY METHOD 06/15/2024 1:39 PM [facility] Basophils Absolute 0.05 0.00 - 0.20 K/mcL LAB HEMETOLOGY METHOD 06/15/2024 1:39 PM [facility] Immature Granulocytes Absolute 0.11(H) 0.00 - 0.03 K/mcL LAB HEMETOLOGY METHOD 06/15/2024 1:39 PM [facility] Blood Venous blood specimen / Unknown Venipuncture / Unknown 06/15/2024 1:26 PM EST 06/15/2024 1:31 PM EST Jovana Cruz MD LAB BLOOD ORDERABLES [facility] [address] [place] [address], [place] [phone] * (ABNORMAL) Protime-INR (06/15/2024 1:26 PM EST) Pathologist [facility] Protime 22.9(H) 10.6 - 13.9 sec LAB COAGULATION METHOD 06/15/2024 1:43 PM EST [facility] INR 1.8 LAB COAGULATION METHOD 06/15/2024 1:43 PM EST [facility] Blood Venous blood specimen / Unknown Venipuncture / Unknown 06/15/2024 1:26 PM EST 06/15/2024 1:31 PM EST Jovana Cruz MD LAB BLOOD ORDERABLES Performing Organization Address City/[facility]/ZIP Co de Phone Number [facility] [address] [place] [address], [place] [phone] * (ABNORMAL) Comprehensive metabolic panel (06/15/2024 1:26 PM EST) [facility] Sodium 140 133 - 145 mmol/L LAB CHEMISTRY METHOD 06/15/2024 2:10 PM [facility] Potassium 4.7 3.5 - 5.5 mmol/L LAB CHEMISTRY METHOD 06/15/2024 2:10 PM [facility] Chloride 102 96 - 110 mmol/L LAB CHEMISTRY METHOD 06/15/2024 2:10 PM [facility] CO2 34(H) 21 - 32 mmol/L LAB CHEMISTRY METHOD 06/15/2024 2:10 PM [facility] Anion Gap 4 3 - 11 LAB CHEMISTRY METHOD 06/15/2024 2:10 PM [facility] Glucose 95 70 - 100 mg/dL LAB CHEMISTRY METHOD 06/15/2024 2:10 PM [facility] BUN 29(H) 5 - 25 mg/dL LAB CHEMISTRY METHOD 06/15/2024 2:10 PM [facility] Creatinine 0.95 0.50 - 1.10 mg/dL LAB CHEMISTRY METHOD 06/15/2024 2:10 PM [facility] eGFR 60 >=60 mL/min/1. 73m2 LAB CHEMISTRY METHOD 06/15/2024 2:10 PM [facility] Comment:Calculation based on the??Chronic Kidney Disease Epidemiology Collaboration (CKD-EPI) equation refit??without adjustment for race. BUN/Creatinine Ratio 30.5 LAB CHEMISTRY METHOD 06/15/2024 2:10 PM [facility] Calcium 10.1 8.5 - 10.5 mg/dL LAB CHEMISTRY METHOD 06/15/2024 2:10 PM [facility] AST (SGOT) 35 10 - 42 unit/L LAB CHEMISTRY METHOD 06/15/2024 2:10 PM [facility] ALT (SGPT) 39 10 - 60 unit/L LAB CHEMISTRY METHOD 06/15/2024 2:10 PM [facility] Alkaline Phosphatase 83 42 - 121 unit/L LAB CHEMISTRY METHOD 06/15/2024 2:10 PM [facility] Total Protein 6.4 6.0 - 8.0 g/dL LAB CHEMISTRY METHOD 06/15/2024 2:10 PM [facility] Albumin 3.3 3.2 - 5.0 g/dL LAB CHEMISTRY METHOD 06/15/2024 2:10 PM [facility] Total Bilirubin 0.4 0.0 - 1.4 mg/dL LAB CHEMISTRY METHOD 06/15/2024 2:10 PM [facility] Blood Venous blood specimen / Unknown Venipuncture / Unknown 06/15/2024 1:26 PM EST 06/15/2024 1:32 PM EST Jovana Cruz MD LAB BLOOD ORDERABLES [facility] ([facility]) [facility] [address] [place] [address], * Vascular US Duplex Lower Extremity Venous Left (06/15/2024 12:24 PM EST) Anatomical Region Laterality Modality Vascular, Abdomen Ultrasound 06/15/2024 12:2 0 PM EST Impressions 06/15/2024 12:20 PM EST Impression: No evidence of deep vein thrombosis in the left femoral-popliteal venous segment. [id number] -------- FINAL REPORT -------- Dictated By: Fawn Levin Dictated Date: 06/15/2024 12:20 ET Assigned Physician: Fawn Levin Reviewed and Electronically Signed By: Fawn Levin Signed Date: 06/15/2024 12:20 ET Workstation ID: [id number] Transcribed By: Self Edit Transcribed Date: 06/15/2024 12:20 ET Narrative 06/15/2024 12:20 PM EST History: Left lower extremity pain. Findings: Duplex and color Doppler imaging of the left lower extremity was performed from the inguinal ligament to the popliteal fossa. The common femoral, femoral and popliteal veins are patent and compress completely. Normal spontaneous and phasic venous flow is demonstrated with Doppler. There is normal flow augmentation with calf compression. The deep calf veins, as visualized, are compressible Procedure Note Fawn Levin MD - 06/15/2024 History: Left lower extremity pain. Findings: Duplex and color Doppler imaging of the left lower extremity was performedfrom the inguinal ligament to the popliteal fossa. The common femoral,femoral and popliteal veins are patent and compress completely. Normalspontaneous and phasic venous flow is demonstrated with Doppler. There isnormal flow augmentation with calf compression. The deep calf veins, as visualized, are compressible IMPRESSION: Impression: No evidence of deep vein thrombosis in the leftfemoral-popliteal venous segment. [id number] -------- FINAL REPORT -------- Dictated By: Fawn Levin Dictated Date: 06/15/2024 12:20 ET Assigned Physician: Fawn Levin Reviewed and Electronically Signed By: Fawn Levin Signed Date: 06/15/2024 12:20 ET Workstation ID: [id number] Transcribed By: Self Edit Transcribed Date: 06/15/2024 12:20 ET Henry Carrillo DO CV VASCULAR PROCEDUR ES from Last 3 Months Advance Directives Documents on File Type Date Recorded Patient Senior Administrative Services Officer Expl anation Health Care Decision (hx) 10/18/2013 AD LACEY DIRECTIVE Health Care Decision (hx) 10/18/2013 AD LACEY DIRECTIVE Health Care Decision (hx) 10/18/2013 AD LACEY DIRECTIVE Health Care Decision (hx) 10/18/2013 AD LACEY DIRECTIVE Health Care Decision (hx) 10/18/2013 AD LACEY DIRECTIVE Health Care Decision (hx) 10/18/2013 AD LACEY DIRECTIVE Health Care Decision (hx) 10/18/2013 AD LACEY DIRECTIVE Health Care Decision (hx) 10/18/2013 AD LACEY DIRECTIVE Health Care Decision (hx) 10/18/2013 AD LACEY DIRECTIVE Health Care Decision (hx) 10/18/2013 AD LACEY DIRECTIVE Health Care Decision (hx) 10/04/2013 AD LACEY DIRECTIVE Health Care Decision (hx) 10/04/2013 AD LACEY DIRECTIVE Health Care Decision (hx) 10/04/2013 AD LACEY DIRECTIVE Health Care Decision (hx) 10/04/2013 AD LACEY DIRECTIVE Health Care Decision (hx) 10/04/2013 AD LACEY DIRECTIVE Health Care Decision (hx) 10/04/2013 AD LACEY DIRECTIVE Health Care Decision (hx) 10/04/2013 AD LACEY DIRECTIVE Health Care Decision (hx) 10/04/2013 AD LACEY DIRECTIVE Health Care Decision (hx) 10/04/2013 AD LACEY DIRECTIVE Health Care Decision (hx) 10/04/2013 AD LACEY DIRECTIVE Care Teams Panman Relationship Specialty Start Date End Date Brennan Burnett MD [address] [place] [address] PCP - General 05/06/24
--- OUTSIDE RECORDS SUMMARY | 2024-08-08 14:44 | XMS_ITS | Encounter Summary ---
Author Organization [facility] Address [address] [place] [address] Care Team Providers Care Extraction Machine Operator Name Role Phone Victorino Martin MD Primary Care Provider Sharon Odonnell Primary Care Provider Brennan Castro MD Primary Care Provider UnavailHayden Fernandez MD Unavailable [phone] Pallavi Flood NP Unavailable [phone] Caitlyn Bowie MD Primary Care Provider Johnathon shaver Encounter Details Date Type Department Care Team Description 01/26/2018 [facility] Medical Records [address] [place] [address] Social History Tobacco Use Types Packs/Day Years [...] on filedocumented in this encounter Care Teams Extraction Machine Operator Relationship Specialty Start Date End Date Victorino Martin MD PCP - General Internal Medicine 12/21/17 08/01/18 Sharon Vides PCP - General Internal Medicine 08/02/18 05/26/20 Brennan Burnett MD PCP - General Internal Medicine 05/27/20 12/07/21 Caitlyn Bowie MD [address] [place] [address] PCP - General Internal Medicine 12/08/21 Hayden Shah MD [address] [place], [place] [phone] Specialist Cardiovascular Disease 09/01/20 Pallavi Flood NP [address] [place] [address] Cardiology 09/01/20 documented as of this encounter
--- OUTSIDE RECORDS SUMMARY | 2024-08-08 14:44 | XMS_ITS | Encounter Summary ---
Author Organization [facility] and [facility] Address [address] [place] [address] Care Team Providers Care Certified Professional Controller Name Role Phone Caitlyn Bowie MD Primary Care Provider [phone]- [phone] Encounter Details Date Type Department Care Team (Late st Contact Info) Description 03/16/2021 Scanned Document INTERFACE DEFAULT [address] [place] [address] System, Provider Not In Social History Tobacco [...] PM EDT Telemedicine [facility] [address] [facility] [address] [place] [address] Ronald Mills MD [address] [place] [address] [address] [place] [address] documented as of this encounter Visit Diagnoses Not on filedocumented in this encounter Additional Health Concerns Infection Onset Date Last Indicated Resolved Time COVID-19 03/05/2022 03/05/2022 03/15/2022 7:18 PM EDT Assessment Noted Time PHQ-9 Depression Total Score: 2 11/07/19 19 2:06 PM EDT documented as of this encounter Care Teams Certified Professional Controller Relationship Specialty Start Date End Date Caitlyn Bowie MD [address] [address] PCP - General Internal Medicine 05/06/21 documented as of this encounter
--- OUTSIDE RECORDS SUMMARY | 2024-08-08 14:44 | XMS_ITS | Encounter Summary ---
Author Organization [facility] Address [address] [place] [address] Care Team Providers Care Patient Accounts Manager Name Role Phone Brennan Burnett MD Primary Care Provider Unavailab Hayden Montes MD Unavailable [phone] Pallavi Flood NP Unavailable [phone] Caitlyn Bowie MD Primary Care Provider Unava ilable Encounter Details Date Type Department Care Team Description 08/18/2020 [facility] Medical Records [address] [place] [address] Brennan Burnett MD Social History Tobacco Use Types Packs/Day [...] Name Priority Date/Time Associated Diagnosis Comments OUTSIDE ECHO Routine 08/18/2020 OUTSIDE ECHO Routine 08/18/2020 documented in this encounter Results * OUTSIDE ECHO (08/18/2020) Cris Avalos MD CARDIOLOGY * OUTSIDE ECHO (08/18/2020) Cris Avalos MD CARDIOLOGY documented in this encounter Visit Diagnoses Not on filedocumented in this encounter Care Teams Patient Accounts Manager Relationship Specialty Start Date End Date Brennan Burnett MD PCP - General Internal Medicine 05/27/20 12/07/21 Caitlyn Bowie MD [address] [place] [address] PCP - General Internal Medicine 12/08/21 Hayden Shah MD [address] [place] [address] Specialist Cardiovascular Disease 09/01/20 Pallavi Flood NP [address] [place] [address] Cardiology 09/01/20 documented as of this encounter
--- OUTSIDE RECORDS SUMMARY | 2024-08-08 14:44 | XMS_ITS | Encounter Summary ---
Author Organization [facility] Address [address] [place] [address] Care Team Providers Care Computerized Mill Recorder Name Role Phone Caitlyn Bowie MD Primary Care Provider [phone]- [phone] Encounter Details Date Type Department Care Team (Late st Contact Info) Description 11/29/2017 Scanned Document [facility] Health Information Management [address] [place] [address] External, Provider Social History Tobacco Use Types [...] [facility] 240 [facility] Building [address] [place], [place] [phone] Ronald Mills MD 240 [facility] [address] [place] [address] documented as of this encounter Procedures Procedure Name Priority Date/Time Associated Diagnosis Comments LAB SCAN Routine 11/29/2017 documented in this encounter Results * Lab Scan (11/29/2017) Blood specimen (specimen) us Provider External LAB BLOOD ORDERABLES Final Res ult documented in this encounter Visit Diagnoses Not on filedocumented in this encounter Additional Health Concerns Infection Onset Date Last Indicated Resolved Time COVID-19 03/05/2022 03/05/2022 03/15/2022 7:18 PM EDT documented as of this encounter Care Teams Computerized Mill Recorder Relationship Specialty Start Date End Date Caitlyn Bowie MD 34[address] [facility] 1 [place] [address] PCP - General Internal Medicine 05/06/21 Henry Kelly MD Pulmonary Department 175 [facility], [address] [place] [address] Physician Pulmonary Disease 09/06/17 06/22/20 documented as of this encounter
--- OUTSIDE RECORDS SUMMARY | 2024-08-08 14:44 | XMS_ITS | Encounter Summary ---
Author Organization [facility] Address [address] [place] [address] Care Team Providers Care Carton Making Machinist Name Role Phone Victorino Martin MD Primary Care Provider UnavailSharon Kimbrough Primary Care Provider Unava ilable Brennan Burnett MD Primary Care Provider Unavailab Hayden Montes MD Unavailable [phone] Pallavi Flood NP Unavailable [phone] Caitlyn Bowie MD Primary Care Provider Unava ilable Reason for Visit * Reason Onset Date Comments other 02/06/2018 Encounter Details Date Type Department Care Team Description 02/06/2018 Telephone Pulmonology - [address] [place] [address] Henry Kelly MD other Social History Tobacco Use Types Packs/Day Years [...] Telephone Encounter - Maryse Iqbal M.A. - 02/06/2018 10:50 AM EDT Please sched 02/15/18 at 3:45pm with . * Telephone Encounter - Megan Pal - 02/06/2018 10:41 AM EDT Jovana wants to see Dr Kelly I explained to her he is on vacation and I could put her in today at 11:[address] Fowler and she said no and started crying I explained to her that is all we have that Dr Kelly is 100% booked till April and she said all she wants is to see Dr Shannon [place] and she wants a call from Maryse documented in this encounter Plan of Treatment Not on file documented as of this encounter Visit Diagnoses Not on filedocumented in this encounter Care Teams Carton Making Machinist Relationship Specialty Start Date End Date Victorino Martin MD PCP - General Internal Medicine 12/21/17 08/01/18 Sharon Vides PCP - General Internal Medicine 08/02/18 05/26/20 Brennan Burnett MD PCP - General Internal Medicine 05/27/20 12/07/21 Caitlyn Bowie MD [address] [place] [address] PCP - General Internal Medicine 12/08/21 Hayden Shah MD [address] [place] [address] Specialist Cardiovascular Disease 09/01/20 Pallavi Flood NP [address] [place] [address] Cardiology 09/01/20 documented as of this encounter
--- OUTSIDE RECORDS SUMMARY | 2024-08-08 14:44 | XMS_ITS | Encounter Summary ---
Author Organization [facility] Address [address] [place] [address] Care Team Providers Care Upper Leather Sorter Name Role Phone Caitlyn Bowie MD Primary Care Provider [phone]- [phone] Encounter Details Date Type Department Care Team (Late st Contact Info) Description 04/13/2021 Scanned Document INTERFACE DEFAULT [address] [place] [address] System, Provider Not In Social History Tobacco [...] [facility] [address] [facility] Building [address] [place], [place] [phone] Ronald Mills MD [address] [place] [address] [address] [place] [address] documented as of this encounter Procedures Procedure Name Priority Date/Time Associated Diagnosis Comments LAB SCAN 04/13/2021 12:00 AM EDT documented in this encounter Results * LAB SCAN (04/13/2021 12:00 AM EDT) 04/13/2021 us Provider Not In System LAB BLOOD ORDERABLES Carmina l Result documented in this encounter Visit Diagnoses Not on filedocumented in this encounter Additional Health Concerns Infection Onset Date Last Indicated Resolved Time COVID-19 03/05/2022 03/05/2022 03/15/2022 7:18 PM EDT Assessment Noted Time PHQ-9 Depression Total Score: 2 11/07/19 19 2:06 PM EDT documented as of this encounter Care Teams Upper Leather Sorter Relationship Specialty Start Date End Date Caitlyn Bowie MD [address] [address] PCP - General Internal Medicine 05/06/21 documented as of this encounter
--- OUTSIDE RECORDS SUMMARY | 2024-08-08 14:44 | XMS_ITS | Encounter Summary ---
Author Organization [facility] Address [address] [place] [phone] Care Team Providers Care Bit Setter Name Role Phone Caitlyn Bowie MD Primary Care Provider +1- [phone] Encounter Details Date Type Department Care Team (Late st Contact Info) Description 01/26/2018 Scanned Document [facility] Health Information Management [address] [place] [address] External, Provider Social History Tobacco Use Types [...] PM EDT Telemedicine [facility] 240 [facility] Building [address] [place], [place] [phone] Ronald Mills MD 240 [facility] [address] [place] [address] documented as of this encounter Procedures Procedure Name Priority Date/Time Associated Diagnosis Comments LAB SCAN Routine 01/26/2018 documented in this encounter Results * Lab Scan (01/26/2018) Blood specimen (specimen) us Provider External LAB BLOOD ORDERABLES Final Res ult documented in this encounter Visit Diagnoses Not on filedocumented in this encounter Additional Health Concerns Infection Onset Date Last Indicated Resolved Time COVID-19 03/05/2022 03/05/2022 03/15/2022 7:18 PM EDT documented as of this encounter Care Teams Bit Setter Relationship Specialty Start Date End Date Caitlyn Bowie MD 34[address] [facility] 1 [place] [address] PCP - General Internal Medicine 05/06/21 Henry Kelly MD Pulmonary Department 175 [facility], [address] [place] [address] Physician Pulmonary Disease 09/06/17 06/22/20 documented as of this encounter
--- OUTSIDE RECORDS SUMMARY | 2024-08-08 14:44 | XMS_ITS | Encounter Summary ---
Author Organization [facility] Address [address] [place] [phone] Care Team Providers Care Rivet Bucker Name Role Phone Caitlyn Bowie MD Primary Care Provider +1- [phone] Encounter Details Date Type Department Care Team (Late st Contact Info) Description 06/07/2017 Scanned Document [facility] Health Information Management [address] [place] [address] External, Provider Social History Tobacco Use Types [...] [facility] 240 [facility] Building [address] [place], [place] [phone] Ronald Mills MD 240 [facility] [address] [place] [address] documented as of this encounter Procedures Procedure Name Priority Date/Time Associated Diagnosis Comments LAB SCAN Routine 06/07/2017 documented in this encounter Results * Lab Scan (06/07/2017) Blood specimen (specimen) us Provider External LAB BLOOD ORDERABLES Final Res ult documented in this encounter Visit Diagnoses Not on filedocumented in this encounter Additional Health Concerns Infection Onset Date Last Indicated Resolved Time COVID-19 03/05/2022 03/05/2022 03/15/2022 7:18 PM EDT documented as of this encounter Care Teams Rivet Bucker Relationship Specialty Start Date End Date Caitlyn Bowie MD 3400 [facility] 1 [place] [address] PCP - General Internal Medicine 05/06/21 Henry Kelly MD Pulmonary Department 175 [facility], [address] [place] [address] Physician Pulmonary Disease 09/06/17 06/22/20 documented as of this encounter
--- OUTSIDE RECORDS SUMMARY | 2024-08-08 14:45 | XMS_ITS | Encounter Summary ---
Author Organization [facility] Address [address] [place] [phone] Care Team Providers Care Vocational Examiner Name Role Phone Caitlyn Bowie MD Primary Care Provider +1- [phone] Encounter Details Date Type Department Care Team (Late st Contact Info) Description 11/09/2014 Scanned Document [facility] Health Information Management [address] [place] [address] External, Provider Social History Tobacco Use Types [...] [facility] 240 [facility] Building [address] [place], [place] [phone] Ronald Mills MD 240 [facility] [address] [place] [address] documented as of this encounter Visit Diagnoses Not on filedocumented in this encounter Additional Health Concerns Infection Onset Date Last Indicated Resolved Time COVID-19 03/05/2022 03/05/2022 03/15/2022 7:18 PM EDT documented as of this encounter Care Teams Vocational Examiner Relationship Specialty Start Date End Date Caitlyn Bowie MD 3400 [facility] 1 [place] [address] PCP - General Internal Medicine 05/06/21 Henry Kelly MD Pulmonary Department 175 [facility], [address] [place] [address] Physician Pulmonary Disease 09/06/17 06/22/20 documented as of this encounter
--- OUTSIDE RECORDS SUMMARY | 2024-08-08 14:45 | XMS_ITS | Encounter Summary ---
Author Organization [facility] Address [address] [place] [address] Care Team Providers Care Sawyer Helper Name Role Phone Caitlyn Bowie MD Primary Care Provider +1- [phone] Encounter Details Date Type Department Care Team (Late st Contact Info) Description 01/30/2018 Scanned Document [facility] Health Information Management [address] [place] [address] External, Provider Social History Tobacco Use Types [...] [facility] 240 [facility] Building [address] [place] [address] Ronald Mills MD 240 [facility] [address] [place] [address] documented as of this encounter Procedures Procedure Name Priority Date/Time Associated Diagnosis Comments US RESULT SCAN Routine 01/30/2018 documented in this encounter Results * US Result Scan (01/30/2018) us Provider External IMG SCAN REPORTS Final Result documented in this encounter Visit Diagnoses Not on filedocumented in this encounter Additional Health Concerns Infection Onset Date Last Indicated Resolved Time COVID-19 03/05/2022 03/05/2022 03/15/2022 7:18 PM EDT documented as of this encounter Care Teams Sawyer Helper Relationship Specialty Start Date End Date Caitlyn Bowie MD [facility] 1 [place] [address] PCP - General Internal Medicine 05/06/21 Henry Kelly MD Pulmonary Department 175 [facility], [address] [place] [address] Physician Pulmonary Disease 09/06/17 06/22/20 documented as of this encounter
--- OUTSIDE RECORDS SUMMARY | 2024-08-08 14:45 | XMS_ITS | Encounter Summary ---
Author Organization [facility] Address [address] [place] [address] Care Team Providers Care Copy Worker Name Role Phone Caitlyn Bowie MD Primary Care Provider +1- [phone] Encounter Details Date Type Department Care Team (Late st Contact Info) Description 02/01/2018 Scanned Document [facility] Health Information Management [address] [place] [address] External, Provider Social History Tobacco Use Types [...] [facility] 240 [facility] Building [address] [place], [place] [address] Ronald Mills MD 240 [facility] [address] [place] [address] documented as of this encounter Procedures Procedure Name Priority Date/Time Associated Diagnosis Comments LAB SCAN Routine 02/01/2018 documented in this encounter Results * Lab Scan (02/01/2018) Blood specimen (specimen) us Provider External LAB BLOOD ORDERABLES Final Res ult documented in this encounter Visit Diagnoses Not on filedocumented in this encounter Additional Health Concerns Infection Onset Date Last Indicated Resolved Time COVID-19 03/05/2022 03/05/2022 03/15/2022 7:18 PM EDT documented as of this encounter Care Teams Copy Worker Relationship Specialty Start Date End Date Caitlyn Bowie MD 3400 [facility] 1 [place] [address] PCP - General Internal Medicine 05/06/21 Henry Kelly MD Pulmonary Department 175 [facility], [address] [place] [address] Physician Pulmonary Disease 09/06/17 06/22/20 documented as of this encounter
--- OUTSIDE RECORDS SUMMARY | 2024-08-08 14:45 | XMS_ITS | Encounter Summary ---
Author Organization [facility] Address [address] [place] [address] Care Team Providers Care Web Development Intern Name Role Phone Sharon Vides Primary Care Provider Brennan Castro MD Primary Care Provider Unavailab Hayden Montes MD Unavailable [phone] Pallavi Flood NP Unavailable [phone]- [phone] Caitlyn Bowie MD Primary Care Provider Johnathon shaver Encounter Details Date Type Department Care Team Description 11/26/2018 Pt. Non Urgent Medic al Question Pulmonology - [place] 175 [facility] [address] [place] [address] Henry Kelly MD Social History [...] as of this encounter Progress Notes * Skyla Lawrence M.A. - 11/27/2018 9:44 AM EDTFrom: Jovana Malik To: Henry Kelly MD Sent: 11/26/2018 10:23 PM EDT Subject: PFT Hi Dr. Kelly, Did you get the results of the PFT? I did get them so if you need them I can drop them off to you. I am eligible for a new Bipap machine on Nov 29 2018. I wake up several times a night and my mouth is so dry my tongue is stuck to the roof of my mouth. I have the humidity set at 5 and tried 5 and a half and my mouth was full of water so that toook care of that back to 5. Sometimes when I first get up my oxygen is around 80 scarey. Do you think I need to have an overnight oximetry? documented in this encounter Plan of Treatment Not on file documented as of this encounter Visit Diagnoses Not on filedocumented in this encounter Care Teams Web Development Intern Relationship Specialty Start Date End Date Sharon Vides PCP - General Internal Medicine 08/02/18 05/26/20 Brennan Burnett MD PCP - General Internal Medicine 05/27/20 12/07/21 Caitlyn Bowie MD [address] [place] [address] PCP - General Internal Medicine 12/08/21 Hayden Shah MD [address] [place] [address] Specialist Cardiovascular Disease 09/01/20 Pallavi Flood NP [address] [place] [address] Cardiology 09/01/20 documented as of this encounter
--- OUTSIDE RECORDS SUMMARY | 2024-08-08 14:45 | XMS_ITS | Encounter Summary ---
Author Organization [facility] and [facility] Address [address] [place] [address] Care Team Providers Care Systems Developer Name Role Phone Caitlyn Bowie MD Primary Care Provider +1- [phone] Encounter Details Date Type Department Care Team (Late st Contact Info) Description 01/27/2018 Scanned Document [facility] Health Information Management [address] [place] [address] External, Provider Social History Tobacco Use Types [...] [facility] [address] [facility] [address] [place], [place] [phone] Ronald Mills MD 240 [facility] A1 [place] [address] documented as of this encounter Visit Diagnoses Not on filedocumented in this encounter Additional Health Concerns Infection Onset Date Last Indicated Resolved Time COVID-19 03/05/2022 03/05/2022 03/15/2022 7:18 PM EDT documented as of this encounter Care Teams Systems Developer Relationship Specialty Start Date End Date Caitlyn Bowie MD [address] [place] [address] [place] [address] PCP - General Internal Medicine 05/06/21 Henry Kelly MD Pulmonary Department 175 [facility], [address] [place] [address] Physician Pulmonary Disease 09/06/17 06/22/20 documented as of this encounter
--- OUTSIDE RECORDS SUMMARY | 2024-08-08 14:45 | XMS_ITS | Encounter Summary ---
Author Organization [facility] and [facility] Address [address] [place] [address] Care Team Providers Care Care Coordinator Name Role Phone Caitlyn Bowie MD Primary Care Provider +1- [phone] Encounter Details Date Type Department Care Team (Late st Contact Info) Description 02/02/2021 Scanned Document INTERFACE DEFAULT [address] [place] [address] System, Provider Not In Social History Tobacco [...] [facility] 240 [facility] [address] [place] [address] Ronald Mills MD [address] [place] [address] [address] [place] [address] documented as of this encounter Procedures Procedure Name Priority Date/Time Associated Diagnosis Comments US RESULT SCAN 02/02/2021 12:00 AM EDT CARDIAC EKG RESULT SCAN 02/02/2021 12:00 AM EDT documented in this encounter Results * CARDIAC EKG RESULT SCAN (02/02/2021 12:00 AM EDT) 02/02/2021 us Provider Not In System CV CARDIAC REPORT (CVR) F inal Result * US RESULT SCAN (02/02/2021 12:00 AM EDT) 02/02/2021 us Provider Not In System IMG SCAN REPORTS Final Re sult documented in this encounter Visit Diagnoses Not on filedocumented in this encounter Additional Health Concerns Infection Onset Date Last Indicated Resolved Time COVID-19 03/05/2022 03/05/2022 03/15/2022 7:18 PM EDT Assessment Noted Time PHQ-9 Depression Total Score: 2 11/07/19 19 2:06 PM EDT documented as of this encounter Care Teams Care Coordinator Relationship Specialty Start Date End Date Caitlyn Bowie MD [facility] [address] [address] PCP - General Internal Medicine 05/06/21 documented as of this encounter
--- OUTSIDE RECORDS SUMMARY | 2024-08-08 14:45 | XMS_ITS | Encounter Summary ---
Author Organization [facility] and [facility] Address [address] [place] [address] Care Team Providers Care Anesthesia Associate Name Role Phone Caitlyn Bowie MD Primary Care Provider +1- [phone] Encounter Details Date Type Department Care Team (Late st Contact Info) Description 01/13/2021 Scanned Document [facility] at [address] [address] Ronald Mills MD [address] [address] Social History Tobacco Use Types Packs/Day Years [...] EDT Telemedicine [facility] 240 [facility] Building [address] [place] [address] Ronald Mills MD [address] [address] documented as of this encounter Procedures Procedure Name Priority Date/Time Associated Diagnosis Comments LAB SCAN Routine 01/13/2021 documented in this encounter Results * Lab Scan (01/13/2021) Ronald Mills MD LAB BLOOD ORDERABLES Final Resul t documented in this encounter Visit Diagnoses Not on filedocumented in this encounter Additional Health Concerns Infection Onset Date Last Indicated Resolved Time COVID-19 03/05/2022 03/05/2022 03/15/2022 7:18 PM EDT Assessment Noted Time PHQ-9 Depression Total Score: 2 11/07/19 19 2:06 PM EDT documented as of this encounter Care Teams Anesthesia Associate Relationship Specialty Start Date End Date Caitlyn Bowie MD [address] [address] PCP - General Internal Medicine 05/06/21 documented as of this encounter
--- OUTSIDE RECORDS SUMMARY | 2024-08-08 14:45 | XMS_ITS | Encounter Summary ---
Author Organization [facility] and [facility] Address [address] [place] [address] Care Team Providers Care Boiler Coverer Helper Name Role Phone Caitlyn Bowie MD Primary Care Provider +1- [phone] Encounter Details Date Type Department Care Team (Late st Contact Info) Description 12/21/2020 Scanned Document INTERFACE DEFAULT [address] [place] [address] System, Provider Not In Social History Tobacco [...] [facility] 240 [facility] [address] [place] [address] Ronald Mills MD [address] [place] [address] [address] [place] [address] documented as of this encounter Visit Diagnoses Not on filedocumented in this encounter Additional Health Concerns Infection Onset Date Last Indicated Resolved Time COVID-19 03/05/2022 03/05/2022 03/15/2022 7:18 PM EDT Assessment Noted Time PHQ-9 Depression Total Score: 2 11/07/19 19 2:06 PM EDT documented as of this encounter Care Teams Boiler Coverer Helper Relationship Specialty Start Date End Date Caitlyn Bowie MD [address] [address] PCP - General Internal Medicine 05/06/21 documented as of this encounter
--- OUTSIDE RECORDS SUMMARY | 2024-08-08 14:45 | XMS_ITS | Encounter Summary ---
Author Organization [facility] and [facility] Address [address] [place] [address] Care Team Providers Care Labor Contractor Name Role Phone Caitlyn Bowie MD Primary Care Provider +1- [phone] Encounter Details Date Type Department Care Team (Late st Contact Info) Description 05/01/2015 Scanned Document [facility] Health Information Management [address] [place] [address] External, Provider Social History Tobacco Use Types [...] [facility] at [facility] [address] [facility] Building [address] [place], [place] [address] Ronald Mills MD 240 [facility] [address] [place] [address] documented as of this encounter Procedures Procedure Name Priority Date/Time Associated Diagnosis Comments GI SCAN Routine 05/01/2015 documented in this encounter Results * GI Scan (05/01/2015) us Provider External GI PROCEDURE ORDERABLES Edited Result - Final documented in this encounter Visit Diagnoses Not on filedocumented in this encounter Additional Health Concerns Infection Onset Date Last Indicated Resolved Time COVID-19 03/05/2022 03/05/2022 03/15/2022 7:18 PM EDT documented as of this encounter Care Teams Labor Contractor Relationship Specialty Start Date End Date Caitlyn Bowie MD 3400 [facility] [address] 1 [place] [address] PCP - General Internal Medicine 05/06/21 Henry Kelly MD Pulmonary Department 175 [facility] [place] [address] Physician Pulmonary Disease 09/06/17 06/22/20 documented as of this encounter
--- OUTSIDE RECORDS SUMMARY | 2024-08-08 14:45 | XMS_ITS | Encounter Summary ---
Author Organization [facility] Address [address] [place] [address] Care Team Providers Care Brusher Operator Name Role Phone Sharon Vides Primary Care Provider Brennan Castro MD Primary Care Provider Unavailab Hayden Montes MD Unavailable [phone] Pallavi Flood NP Unavailable [phone]- [phone] Caitlyn Bowie MD Primary Care Provider Johnathon shaver Encounter Details Date Type Department Care Team Description 10/03/2018 Pt. Non Urgent Medic al Question Pulmonology - [place] 175 [facility] [address] [place] [address] Henry Kelly MD Social History [...] Progress Notes * Skyla Lawrence M.A. - 10/04/2018 9:46 AM EDTFrom: Jovana Malik To: Henry Kelly MD Sent: 10/03/2018 11:34 PM EDT Subject: pft Hi Dr. Kelly, I got a call from your office stating they were going to schedule a pft and I told them that Dr Menjivar's office had scheduled it in [place] earlier in the day of my appointment with him. Do you preferthat I have it in [place]? Also I am having very thick white sticky phlegm and a sore throat do I need a throat culture. All my best to you, Jovana Malik documented in this encounter Plan of Treatment Not on file documented as of this encounter Visit Diagnoses Not on filedocumented in this encounter Care Teams Brusher Operator Relationship Specialty Start Date End Date Sharon Vides PCP - General Internal Medicine 08/02/18 05/26/20 Brennan Burnett MD PCP - General Internal Medicine 05/27/20 12/07/21 Caitlyn Bowie MD [address] [place] [address] PCP - General Internal Medicine 12/08/21 Hayden Shah MD [address] [place] [address] Specialist Cardiovascular Disease 09/01/20 Pallavi Flood NP [address] [place] [address] Cardiology 09/01/20 documented as of this encounter
--- OUTSIDE RECORDS SUMMARY | 2024-08-08 14:45 | XMS_ITS | Encounter Summary ---
Author Organization [facility] and [facility] Address [address] [place] [address] Care Team Providers Care Caretaker Resort Name Role Phone Caitlyn Bowie MD Primary Care Provider +1- [phone] Encounter Details Date Type Department Care Team (Late st Contact Info) Description 02/02/2021 Scanned Document [facility] Health Information Management [address] [place] [address] External, Provider Social History Tobacco Use Types [...] [facility] 240 [facility] Building [address] [place], [place] [phone] Ronald Mills MD [address] [place] [address] [address] [place] [address] documented as of this encounter Visit Diagnoses Not on filedocumented in this encounter Additional Health Concerns Infection Onset Date Last Indicated Resolved Time COVID-19 03/05/2022 03/05/2022 03/15/2022 7:18 PM EDT Assessment Noted Time PHQ-9 Depression Total Score: 2 11/07/19 19 2:06 PM EDT documented as of this encounter Care Teams Caretaker Resort Relationship Specialty Start Date End Date Caitlyn Bowie MD [address] [address] PCP - General Internal Medicine 05/06/21 documented as of this encounter
--- OUTSIDE RECORDS SUMMARY | 2024-08-08 14:45 | XMS_ITS | Encounter Summary ---
Author Organization [facility] and [facility] Address [address] [place] [address] Care Team Providers Care Spud Grader Name Role Phone Caitlyn Bowie MD Primary Care Provider +1- [phone] Encounter Details Date Type Department Care Team (Late st Contact Info) Description 02/11/2021 Scanned Document INTERFACE DEFAULT [address] [place] [address] System, Provider Not In Social History Tobacco [...] EDT Telemedicine [facility] 240 [facility] [address] [place] [address] Ronald Mills MD [address] [place] [address] [address] [place] [address] documented as of this encounter Procedures Procedure Name Priority Date/Time Associated Diagnosis Comments US RESULT SCAN 02/11/2021 12:00 AM EDT US RESULT SCAN 02/11/2021 12:00 AM EDT documented in this encounter Results * US RESULT SCAN (02/11/2021 12:00 AM EDT) 02/11/2021 us Provider Not In System IMG SCAN REPORTS Final Re sult * US RESULT SCAN (02/11/2021 12:00 AM EDT) 02/11/2021 us Provider Not In System IMG SCAN REPORTS Final Re sult documented in this encounter Visit Diagnoses Not on filedocumented in this encounter Additional Health Concerns Infection Onset Date Last Indicated Resolved Time COVID-19 03/05/2022 03/05/2022 03/15/2022 7:18 PM EDT Assessment Noted Time PHQ-9 Depression Total Score: 2 11/07/19 19 2:06 PM EDT documented as of this encounter Care Teams Spud Grader Relationship Specialty Start Date End Date Caitlyn Bowie MD [address] [address] PCP - General Internal Medicine 05/06/21 documented as of this encounter
--- OUTSIDE RECORDS SUMMARY | 2024-08-08 14:45 | XMS_ITS | Encounter Summary ---
Author Organization [facility] and [facility] Address [address] [place] [address] Care Team Providers Care Remediation Bioanalytics Consultant Name Role Phone Caitlyn Bowie MD Primary Care Provider +1- [phone] Encounter Details Date Type Department Care Team (Late Contact Info) Description 02/03/2021 Scanned Document [facility] Health Information Management [address] [place] [address] External, Provider Social History Tobacco Use Types [...] [facility] 240 [facility] Building [address] [place], [place] [phone] Ronald Mills MD [address] [place] [address] [address] [place] [address] documented as of this encounter Procedures Procedure Name Priority Date/Time Associated Diagnosis Comments LAB SCAN Routine 02/03/2021 documented in this encounter Results * Lab Scan (02/03/2021) us Provider External LAB BLOOD ORDERABLES Final Res ult documented in this encounter Visit Diagnoses Not on filedocumented in this encounter Additional Health Concerns Infection Onset Date Last Indicated Resolved Time COVID-19 03/05/2022 03/05/2022 03/15/2022 7:18 PM EDT Assessment Noted Time PHQ-9 Depression Total Score: 2 11/07/19 19 2:06 PM EDT documented as of this encounter Care Teams Remediation Bioanalytics Consultant Relationship Specialty Start Date End Date Caitlyn oBwie MD [address] [address] PCP - General Internal Medicine 05/06/21 documented as of this encounter
--- OUTSIDE RECORDS SUMMARY | 2024-08-08 14:45 | XMS_ITS | Encounter Summary ---
Author Organization [facility] Address [address] [place] [address] Care Team Providers Care Registered Nurses Name Role Phone Sharon Vides Primary Care Provider Unava ilable Brennan Burnett MD Primary Care Provider Unavailab Hayden Montes MD Unavailable [phone] Pallavi Flood NP Unavailable [phone]- [phone] Caitlyn Bowie MD Primary Care Provider Unava ilable Reason for Visit * Reason Onset Date Comments Pulmonary Problem 09/21/2018 [facility] NEED[facility] PFTS Encounter Details Date Type Department Care Team Description 09/21/2018 Telephone Pulmonology - [address] [place] [address] Henry Kelly MD Pulmonary Problem ([facility] NEED[facility] PFTS) Social History Tobacco Use Types Packs/Day Years [...] Telephone Encounter - Nasima Sr M.A. - 10/03/2018 3:28 PM EDT OV notes, CTs, VQ &PET scan, pathology , OP notes and labs faxed to [facility]. * Telephone Encounter - Nasima Sr M.A. - 10/02/2018 11:57 AM EDT I called patient back and she has been scheduled with the [facility] for a PFT. * Telephone Encounter - Nasima Sr M.A. - 10/02/2018 11:31 AM EDT I called patient ot schedule PFT. There was no answer and no voice mail. * Telephone Encounter - Henry Kelly MD - 10/01/2018 8:45 AM EDT Please have her come in for PFTs soon, ty * Telephone Encounter - Skyla Lawrence M.A. - 09/21/2018 10:53 AM EDT Spoke with pt and she is feeling well after taking meds and nebulizer treatment. She also mentionedthat at her last visit the Dr was going to refer her to a Dr Kerwin Menjivar in [place]. Please advise. * Telephone Encounter - Paloma Kelly - 09/21/2018 8:53 AM EDT Symptoms patient is presenting: crackling on her lung If pain or injury related was it due to an accident at work or from a motor vehicle accident? NO If yes, gather 3rd constitution party insurance information Date of accident/Injury: How long has patient had these symptoms?: 2 days PCP: Sharon Vides MD [place] / [place] / Product Type: MEDICARE [id number] documented in this encounter Plan of Treatment Not on file documented as of this encounter Visit Diagnoses Not on filedocumented in this encounter Care Teams Registered Nurses Relationship Specialty Start Date End Date Sharon Vides PCP - General Internal Medicine 08/02/18 05/26/20 Brennan Burnett MD PCP - General Internal Medicine 05/27/20 12/07/21 Caitlyn Bowie MD [address] [place] [address] PCP - General Internal Medicine 12/08/21 Hayden Shah MD [address] [place] [address] Specialist Cardiovascular Disease 09/01/20 Pallavi Flood NP [address] [place] [address] Cardiology 09/01/20 documented as of this encounter
--- OUTSIDE RECORDS SUMMARY | 2024-08-08 14:45 | XMS_ITS | Encounter Summary ---
Author Organization [facility] Address [address] [place] [address] Care Team Providers Care Ear Nose Throat Surgeon Name Role Phone Caitlyn Bowie MD Primary Care Provider +1- [phone] Encounter Details Date Type Department Care Team (Late st Contact Info) Description 01/13/2021 Scanned Document Cancer Center at [address] [address] External, Provider Social History Tobacco Use Types [...] at [facility] 240 [facility] Building [address] [place], [place] [phone] Ronald Mills MD [address] [place] [address] [address] [place] [address] documented as of this encounter Procedures Procedure Name Priority Date/Time Associated Diagnosis Comments LAB SCAN Routine 01/13/2021 documented in this encounter Results * Lab Scan (01/13/2021) us Provider External LAB BLOOD ORDERABLES Final Res ult documented in this encounter Visit Diagnoses Not on filedocumented in this encounter Additional Health Concerns Infection Onset Date Last Indicated Resolved Time COVID-19 03/05/2022 03/05/2022 03/15/2022 7:18 PM EDT Assessment Noted Time PHQ-9 Depression Total Score: 2 11/07/19 19 2:06 PM EDT documented as of this encounter Care Teams Ear Nose Throat Surgeon Relationship Specialty Start Date End Date Caitlyn Bowie MD [address] [address] PCP - General Internal Medicine 05/06/21 documented as of this encounter
--- OUTSIDE RECORDS SUMMARY | 2024-08-08 14:45 | XMS_ITS | Encounter Summary ---
Author Organization [facility] Address [address] [place] [address] Care Team Providers Care Certified Adaptive Physical Educator Name Role Phone Caitlyn Bowie MD Primary Care Provider +1- [phone] Encounter Details Date Type Department Care Team (Late st Contact Info) Description 01/28/2018 Scanned Document [facility] Health Information Management [address] [place] [address] External, Provider Social History Tobacco Use Types [...] [facility] Center at [facility] 240 [facility] Building [address] [place], [place] [address] Ronald Mills MD 240 [facility] [address] [place] [address] documented as of this encounter Visit Diagnoses Not on filedocumented in this encounter Additional Health Concerns Infection Onset Date Last Indicated Resolved Time COVID-19 03/05/2022 03/05/2022 03/15/2022 7:18 PM EDT documented as of this encounter Care Teams Certified Adaptive Physical Educator Relationship Specialty Start Date End Date Caitlyn Bowie MD 3400 [facility] 1 [place] [address] PCP - General Internal Medicine 05/06/21 Henry Kelly MD Pulmonary Department 175 [facility], [address] [place] [address] Physician Pulmonary Disease 09/06/17 06/22/20 documented as of this encounter
--- OUTSIDE RECORDS SUMMARY | 2024-08-08 14:45 | XMS_ITS | Encounter Summary ---
Author Organization [facility] Address [address] [place] [address] Care Team Providers Care Election Assistant Name Role Phone Sharon Vides Primary Care Provider Brennan Castro MD Primary Care Provider Unavailab Hayden Montes MD Unavailable [phone] Pallavi Flood NP Unavailable [phone]- [phone] Caitlyn Bowie MD Primary Care Provider Johnathon shaver Encounter Details Date Type Department Care Team Description 10/01/2018 Orders Only Pulmonology - [address] [place] [address] Henry Kelly MD Mixed simple and mucopurulent chronic bronchitis (HCC) (Primary Dx) Social History Tobacco Use Types [...] as of this encounter Plan of Treatment Scheduled Orders Name Type Priority Associated Diagnoses Orde r Schedule PFT FULL (60 MINUTES) Pulmonology Routine Mixed simple and mucopurulent chronic bronchitis (HCC) Expected: 10/01/2018, Expires: 10/02/2019 documented as of this encounter Visit Diagnoses Diagnosis Mixed simple and mucopurulent chronic bronchitis (HCC)- Primary Other chronic bronchitis documented in this encounter Care Teams Election Assistant Relationship Specialty Start Date End Date Sharon Vides PCP - General Internal Medicine 08/02/18 05/26/20 Brennan Burnett MD PCP - General Internal Medicine 05/27/20 12/07/21 Caitlyn Bowie MD [address] [place] [address] PCP - General Internal Medicine 12/08/21 Hayden Shah MD [address] [place] [address] Specialist Cardiovascular Disease 09/01/20 Pallavi Flood NP [address] [place] [address] Cardiology 09/01/20 documented as of this encounter
--- OUTSIDE RECORDS SUMMARY | 2024-08-08 14:45 | XMS_ITS | Encounter Summary ---
Author Organization [facility] Address [address] [place] [address] Care Team Providers Care Radius Corner Machine Operator Name Role Phone Sharon Vides Primary Care Provider Brennan Castro MD Primary Care Provider Unavailab Hayden Montes MD Unavailable [phone] Pallavi Flood NP Unavailable [phone]- [phone] Caitlyn Bowie MD Primary Care Provider Johnathon shaver Encounter Details Date Type Department Care Team Description 11/20/2018 Pt. Non Urgent Medic al Question Pulmonology - [place] 175 [facility] [address] [place] [address] Henry Kelly MD Social History [...] Progress Notes * Skyla Lawrence M.A. - 11/21/2018 10:20 AM EDTFrom: Jovana Malik To: Henry Kelly MD Sent: 11/20/2018 10:18 AM EDT Subject: pft Hi Dr. Kelly, Did you ever get the pft result from [facility] (Dr. Menjivar)? If so did you request a new Bipap from [employer]? I hope you and your family had a good vacation. Fond regards, Jovana Malik documented in this encounter Plan of Treatment Not on file documented as of this encounter Visit Diagnoses Not on filedocumented in this encounter Care Teams Radius Corner Machine Operator Relationship Specialty Start Date End Date Sharon Vides PCP - General Internal Medicine 08/02/18 05/26/20 Brennan Burntet MD PCP - General Internal Medicine 05/27/20 12/07/21 Caitlyn Bowie MD [address] [place] [address] PCP - General Internal Medicine 12/08/21 Hayden Shah MD [address] [place] [address] Specialist Cardiovascular Disease 09/01/20 Pallavi Flood NP [address] [place] [address] Cardiology 09/01/20 documented as of this encounter
--- OUTSIDE RECORDS SUMMARY | 2024-08-08 14:45 | XMS_ITS | Encounter Summary ---
Author Organization [facility] and [facility] Address [address] [place] [phone] Care Team Providers Care Time Study Clerk Name Role Phone Caitlyn Bowie MD Primary Care Provider +1- [phone] Encounter Details Date Type Department Care Team (Late st Contact Info) Description 04/28/2015 Scanned Document [facility] Health Information Management [address] [place] [phone] External, Provider Social History Tobacco Use Types [...] Center at [facility] 240 [facility] [address] [place], [place] [phone] Ronald Mills MD 240 [facility] [address] [place] [address] documented as of this encounter Procedures Procedure Name Priority Date/Time Associated Diagnosis Comments LAB SCAN Routine 04/28/2015 documented in this encounter Results * Lab Scan (04/28/2015) Blood specimen (specimen) us Provider External LAB BLOOD ORDERABLES Edited Re sult - Final [facility] documented in this encounter Visit Diagnoses Not on filedocumented in this encounter Additional Health Concerns Infection Onset Date Last Indicated Resolved Time COVID-19 03/05/2022 03/05/2022 03/15/2022 7:18 PM EDT documented as of this encounter Care Teams Time Study Clerk Relationship Specialty Start Date End Date Caitlyn Bowie MD 3400 [facility] 1 [place] [address] PCP - General Internal Medicine 05/06/21 Henry Kelly MD Pulmonary Department 175 [facility], [address] [place] [address] Physician Pulmonary Disease 09/06/17 06/22/20 documented as of this encounter
--- OUTSIDE RECORDS SUMMARY | 2024-08-08 14:45 | XMS_ITS | Encounter Summary ---
Author Organization [facility] and [facility] Address [address] [place] [address] Care Team Providers Care Private Duty Lpn Name Role Phone Caitlyn Bowie MD Primary Care Provider +1- [phone] Encounter Details Date Type Department Care Team (Late st Contact Info) Description 01/27/2018 Scanned Document [facility] Health Information Management [address] [place] [phone] External, Provider Social History Tobacco Use Types [...] [facility] at [facility] 240 [facility] [address] [place] [address] Ronald Mills MD 240 [facility] [address]1 [place] [address] documented as of this encounter Procedures Procedure Name Priority Date/Time Associated Diagnosis Comments PATHOLOGY/CYTOLOGY SCAN Routine 01/27/2018 documented in this encounter Results * Pathology/Cytology Scan (01/27/2018) us Provider External PATHOLOGY/CYTOLOGY ORDERABLES Final Result documented in this encounter Visit Diagnoses Not on filedocumented in this encounter Additional Health Concerns Infection Onset Date Last Indicated Resolved Time COVID-19 03/05/2022 03/05/2022 03/15/2022 7:18 PM EDT documented as of this encounter Care Teams Private Duty Lpn Relationship Specialty Start Date End Date Caitlyn Bowie MD 34[address] [facility] 1 [place] [address] PCP - General Internal Medicine 05/06/21 Henry Kelly MD Pulmonary Department 175 [facility], [address] [place] [address] Physician Pulmonary Disease 09/06/17 06/22/20 documented as of this encounter
--- OUTSIDE RECORDS SUMMARY | 2024-08-08 14:45 | XMS_ITS | Encounter Summary ---
Author Organization [facility] and [facility] Address [address] [place] [address] Care Team Providers Care Housing Installer Name Role Phone Caitlyn Bowie MD Primary Care Provider +1- [phone] Reason for Visit * Reason Comments Other Encounter Details Date Type Department Care Team (Late st Contact Info) Description 01/12/2021 Telephone [facility] at [address] - [address] [id number] Ronald Mills MD [address] [place] [phone] Other Social History Tobacco Use Types Packs/Day Years [...] encounter Miscellaneous Notes * Telephone Encounter - Kirstin Travis RN - 01/12/2021 10:43 AM EDT Lab orders were faxed to [facility] @ [phone]. Patient notified by phone. * Telephone Encounter - Kathleen Nasima - 01/12/2021 8:46 AM EDT Pt called looking to speak with Kirstin RE: lab orders sent to lab [facility] lab Looking to have labs sent there A.S.A.P at some point today She is scheduled with Dr. Mills on January 28 documented in this encounter Plan of Treatment Upcoming Encounters Date Type Department Care Team (Late st Contact Info) Description 10/31/2024 1:00 PM EDT Telemedicine [facility] at [facility] 240 [facility] [address] [place], [place] [phone] Ronald Mills MD 240 [facility] [address] [place] [address] documented as of this encounter Visit Diagnoses Not on filedocumented in this encounter Additional Health Concerns Infection Onset Date Last Indicated Resolved Time COVID-19 03/05/2022 03/05/2022 03/15/2022 7:18 PM EDT Assessment Noted Time PHQ-9 Depression Total Score: 2 11/07/19 19 2:06 PM EDT documented as of this encounter Care Teams Housing Installer Relationship Specialty Start Date End Date Caitlyn Bowie MD [address] [address] PCP - General Internal Medicine 05/06/21 documented as of this encounter
--- OUTSIDE RECORDS SUMMARY | 2024-08-08 14:45 | XMS_ITS | Encounter Summary ---
Author Organization [facility] and [facility] Address [address] [place] [address] Care Team Providers Care Lockstitch Topstitcher Name Role Phone Caitlyn Bowie MD Primary Care Provider +1- [phone] Encounter Details Date Type Department Care Team (Late st Contact Info) Description 06/25/2015 Scanned Document [facility] Health Information Management [address] [place] [phone] External, Provider Social History Tobacco Use Types [...] [facility] 240 [facility] [address] [place], [place] [phone] Ronald Mills MD 240 [facility] [address]1 [place] [address] documented as of this encounter Visit Diagnoses Not on filedocumented in this encounter Additional Health Concerns Infection Onset Date Last Indicated Resolved Time COVID-19 03/05/2022 03/05/2022 03/15/2022 7:18 PM EDT documented as of this encounter Care Teams Lockstitch Topstitcher Relationship Specialty Start Date End Date Caitlyn Bowie MD 3400 [facility] 1 [place] [address] PCP - General Internal Medicine 05/06/21 Henry Kelly MD Pulmonary Department 175 [facility], [address] [place] [address] Physician Pulmonary Disease 09/06/17 06/22/20 documented as of this encounter
--- OUTSIDE RECORDS SUMMARY | 2024-08-08 14:45 | XMS_ITS | Encounter Summary ---
Author Organization [facility] and [facility] Address [address] [place] [address] Care Team Providers Care Tool Programmer Name Role Phone Caitlyn oBwie MD Primary Care Provider +1- [phone] Encounter Details Date Type Department Care Team (Late st Contact Info) Description 02/03/2021 Scanned Document INTERFACE DEFAULT [address] [place] [address] System, Provider Not In Social History Tobacco [...] EDT Telemedicine [facility] at [facility] 240 [facility] [address] [place], [place] [phone] Ronald Mills MD [address] [place] [address] [address] [place] [address] documented as of this encounter Procedures Procedure Name Priority Date/Time Associated Diagnosis Comments XRAY RESULT SCAN 02/03/2021 12:[address] RESULT SCAN 02/03/2021 12:00 AM EDT documented in this encounter Results * XRAY RESULT SCAN (02/03/2021 12:00 AM EDT) 02/03/2021 us Provider Not In System IMG SCAN REPORTS Final Re sult * CT RESULT SCAN (02/03/2021 12:00 AM EDT) 02/03/2021 us Provider Not In System IMG SCAN REPORTS Final Re sult documented in this encounter Visit Diagnoses Not on filedocumented in this encounter Additional Health Concerns Infection Onset Date Last Indicated Resolved Time COVID-19 03/05/2022 03/05/2022 03/15/2022 7:18 PM EDT Assessment Noted Time PHQ-9 Depression Total Score: 2 11/07/19 19 2:06 PM EDT documented as of this encounter Care Teams Tool Programmer Relationship Specialty Start Date End Date Caitlyn Bowie MD [address] [address] PCP - General Internal Medicine 05/06/21 documented as of this encounter
--- OUTSIDE RECORDS SUMMARY | 2024-08-08 14:45 | XMS_ITS | Encounter Summary ---
Author Organization [facility] and [facility] Address [address] [place] [address] Care Team Providers Care Stone Crusher Operator Name Role Phone Caitlyn Bowie MD Primary Care Provider +1- [phone] Encounter Details Date Type Department Care Team (Late st Contact Info) Description 11/07/2014 Scanned Document [facility] Health Information Management [address] [place] [address] External, Provider Social History Tobacco Use Types [...] [facility] 240 [facility] Building [address] [place], [place] [phone] Ronald Mills MD 240 [facility] [address]1 [place] [address] documented as of this encounter Visit Diagnoses Not on filedocumented in this encounter Additional Health Concerns Infection Onset Date Last Indicated Resolved Time COVID-19 03/05/2022 03/05/2022 03/15/2022 7:18 PM EDT documented as of this encounter Care Teams Stone Crusher Operator Relationship Specialty Start Date End Date Caitlyn Bowie MD 3400 [facility] 1 [place] [address] PCP - General Internal Medicine 05/06/21 Henry Kelly MD Pulmonary Department 175 [facility], [address] [place] [address] Physician Pulmonary Disease 09/06/17 06/22/20 documented as of this encounter
--- OUTSIDE RECORDS SUMMARY | 2024-08-08 14:45 | XMS_ITS | Encounter Summary ---
Author Organization [facility] and [facility] Address [address] [place] [address] Care Team Providers Care Practice Management Consultant Name Role Phone Caitlyn Bowie MD Primary Care Provider +1- [phone] Encounter Details Date Type Department Care Team (Late st Contact Info) Description 04/28/2015 Scanned Document [facility] Health Information Management [address] [place] [address] External, Provider Social History Tobacco Use Types [...] Telemedicine Cancer Center at [facility] 240 [facility] Building [address] [place], [place] [phone] Ronald Mills MD 240 [facility] A1 [place] [address] documented as of this encounter Visit Diagnoses Not on filedocumented in this encounter Additional Health Concerns Infection Onset Date Last Indicated Resolved Time COVID-19 03/05/2022 03/05/2022 03/15/2022 7:18 PM EDT documented as of this encounter Care Teams Practice Management Consultant Relationship Specialty Start Date End Date Caitlyn Bowie MD 3400 [facility] 1 [place] [address] PCP - General Internal Medicine 05/06/21 Henry Kelly MD Pulmonary Department 175 [facility], [address] [place] [address] Physician Pulmonary Disease 09/06/17 06/22/20 documented as of this encounter
--- OUTSIDE RECORDS SUMMARY | 2024-08-08 14:45 | XMS_ITS | Encounter Summary ---
Author Organization [facility] and [facility] Address [address] [place] [address] Care Team Providers Care Car Pilot Name Role Phone Caitlyn Bowie MD Primary Care Provider +1- [phone] Encounter Details Date Type Department Care Team (Late st Contact Info) Description 01/28/2018 Scanned Document [facility] Health Information Management [address] [place] [phone] External, Provider Social History Tobacco Use Types [...] [facility] 240 [facility] Building [address] [place], [place] [phone] Ronald Mills MD 240 [facility] A1 [place] [address] documented as of this encounter Procedures Procedure Name Priority Date/Time Associated Diagnosis Comments US RESULT SCAN Routine 01/28/2018 documented in this encounter Results * US Result Scan (01/28/2018) us Provider External IMG SCAN REPORTS Final Result documented in this encounter Visit Diagnoses Not on filedocumented in this encounter Additional Health Concerns Infection Onset Date Last Indicated Resolved Time COVID-19 03/05/2022 03/05/2022 03/15/2022 7:18 PM EDT documented as of this encounter Care Teams Car Pilot Relationship Specialty Start Date End Date Caitlyn Bowie MD [facility] 1 [place] [address] PCP - General Internal Medicine 05/06/21 Henry Kelly MD Pulmonary Department 175 [facility], [address] [place] [address] Physician Pulmonary Disease 09/06/17 06/22/20 documented as of this encounter
--- OUTSIDE RECORDS SUMMARY | 2024-08-08 14:45 | XMS_ITS | Encounter Summary ---
Author Organization [facility] and [facility] Address [address] [place] [address] Care Team Providers Care Agriculture Extension Specialist Name Role Phone Caitlyn Bowie MD Primary Care Provider +1- [phone] Encounter Details Date Type Department Care Team (Late st Contact Info) Description 10/16/[address] [facility] [address] [place] [address], 2nd floor [facility], [address] [place], [place] [address] Suzy Kong MD [address] [place] [phone] Social History Tobacco Use Types Packs/Day Years [...] 1:00 PM EDT Telemedicine Cancer Center at [address] [place] [address] Ronald Mills MD 240 [facility] A1 [place] [address] documented as of this encounter Visit Diagnoses Not on filedocumented in this encounter Additional Health Concerns Infection Onset Date Last Indicated Resolved Time COVID-19 03/05/2022 03/05/2022 03/15/2022 7:18 PM EDT documented as of this encounter Care Teams Agriculture Extension Specialist Relationship Specialty Start Date End Date Caitlyn Bowie MD 3400 [facility] Max 1 [place] [address] PCP - General Internal Medicine 05/06/21 Henry Kelyl MD Pulmonary Department 175 [facility], [address] [place] [address] Physician Pulmonary Disease 09/06/17 06/22/20 documented as of this encounter
--- OUTSIDE RECORDS SUMMARY | 2024-08-08 14:45 | XMS_ITS | Encounter Summary ---
Author Organization [facility] Address [address] [place] [address] Care Team Providers Care Dat Instructor Name Role Phone Caitlyn Bowie MD Primary Care Provider +1- [phone] Encounter Details Date Type Department Care Team (Late st Contact Info) Description 02/02/2018 Scanned Document [facility] Health Information Management [address] [place] [phone] External, Provider Social History Tobacco Use Types [...] Center at [facility] 240 [facility] Building [address] [place], [place] [phone] Ronald Mills MD 240 [facility] A1 [place] [address] documented as of this encounter Visit Diagnoses Not on filedocumented in this encounter Additional Health Concerns Infection Onset Date Last Indicated Resolved Time COVID-19 03/05/2022 03/05/2022 03/15/2022 7:18 PM EDT documented as of this encounter Care Teams Dat Instructor Relationship Specialty Start Date End Date Caitlyn Bowie MD 3400 [facility] 1 [place] [address] PCP - General Internal Medicine 05/06/21 Henry Kelly MD Pulmonary Department 175 [facility], [address] [place] [address] Physician Pulmonary Disease 09/06/17 06/22/20 documented as of this encounter
--- OUTSIDE RECORDS SUMMARY | 2024-08-08 14:45 | XMS_ITS | Data Portability ---
Author Organization [place] [facility], [facility] Address [address] [place] [phone] Care Team Providers Care Video Clerk Name Role Phone EVELIN RAMSAY Primary Care Provider SHANTI YBARRA OTHER Assessment Encounter Date Assessment Date Assessment LastModified by Organization Details LastModified Time 03/14/2021 03/14/2021 Overview/History : This is a 75 yo female whose pmhx includes COPD-oxygen dependent, lung cancer, history of pulmonary embolism, factor V Leiden, antiphospholipid antibody syndrome, platelet defects, history of DVT and tachycardia. She calls with complaints of severe abdominal pain, distention, blood in stool and brown mucus discharge from rectum for the past week. She also states she look online to see her recent lab results from 03/08/21 and noticed elevated WBC of 22. She states her primary care's out of the office and no one has called to discuss these laboratory findings with her at this time. She does admit to fever of 100.5 yesterday of which she took Tylenol with good resolution. She admits to decreased appetite and fair fluid intake. She denies any vomiting or nausea at this time. Exam: Neuro intact, A&O x4. Appropriate. No acute distress noted. Vital signs stable, afebrile Apical-regular, strong Lung sounds have scattered rhonchi and wheezing throughout which is her baseline. Speaking full sentences. No cough appreciated. Normal mucous membranes. ABD-hyperactive bowel sounds noted throughout. + distention, mildly firm. Significant right upper quadrant tenderness noted with palpation DDx considered, but not limited to: Colitis, gastroenteritis, small bowel obstruction, Crohn's, Cholecystitis, Cirrhosis , sepsis - All possible given known elevated white blood cell count, subjective symptoms of severe abdominal pain, blood in stool and brownish mucus discharge from rectum. Vital signs are currently stable, patient is afebrile currently. Exam findings reveal abdominal distention, mildly firm, significant right upper quadrant tenderness with palpation and hyperactive bowel sounds throughout. Work up/Results: Discussed the significance of elevating visit to emergency department for stent imaging and lab work given exam findings, patient's comorbidities and medical history as well as known elevated white blood cell count. Discussion was had in regards to the length of time it will take for outpatient testing, blood work, results and treatment to begin if any significant findings were revealed. Patient opted for emergency department after discussion was had. 911 activated Plan/Discussion: EMS handoff given to [facility] In order to obtain further information and compare any laboratory results/values, I have accessed old patient records. This information was pertinent in my medical decision making today. [email or web address] Not available 03/14/2021 13:20:46 07/18/2021 07/18/2021 Overview/History : 76 YO F known to and new to provider She is c/o today of some mild abd pain to the LLQ Pain started 4-5 days ago when she woke up w/ the pain, it waxes and wanes, pt states that she tends towards constipation and she has not had a full sized BM in the same amount of time. No recent trauma to the area It is a dull pain. Does not radiate anywhere. Has not tried anything other than prunes to promote a BM. No other associated sx's and she currently denies rash, fever/chills, diarrhea, blood or mucous in stool. Denies hematochezia. No other asscociated sx's. Exam: Vitals: VSS and afebrile Constitutional: 76 yo Well developed, well nourished, pleasant patient in no apparent distress. She is comfortable and nontoxic. Eyes: PE at 4mm, EOM's intact, No swelling, no discharge, sclera / conjunctiva clear CV: Normal HR, reg rhythm, 2+ radial pulses bilaterally, no edema, 2+ DP/ PT pulses bilaterally Pulm: Speaks in full sentences, no increased work of breathing. GI: Patient has a soft, non-distended, not bloated abdomen w/o lesions, dilated veins, ascites, masses, or significant tenderness present. She does exhibit what appears to be some voluntary guarding to the L side of her abdomen however when distracted and I perform abdominal examination she does not display any involuntary guarding or gasp in any sort of pain during deep or light palpation nor w/ rebound. She does have ABS present throughout her abdomen. : No CVA tenderness bilaterally. No suprapubic tenderness. MS: Self ambulatory patient, moves all limbs without deficit, no evidence of trauma Neuro: No focal deficits. She is alert and oriented x4. Skin: No rash Psych: Calm, cooperative, non-manic DDx considered, but not limited to: Diverticulitis - considered w/ LLQ abd pain. Do not believe this to be likely however as patient has a benign abdomen exam and she currently has no fever/chills, nausea, vomiting, or constant pain as it waxes and wanes per her report. She does have hx of diverticulitis and these sx's are diff from prev episodes. Her VSS and she is non-toxic and she is comfortable moving about her home and laying in bed as well. Constipation - most likely as she reports no sig BM for last couple of days w waxing and waning abdominal discomfort/pain. She has not tried anything to promote BM besides prunes. Small BM yesterday. Bowel Obstruction - considered but had small BM yesterday, is passing gas, and has benign abdomen w/ ABS x4 Colon Polyp/Carcinoma - considered but no blood in her stool nor hematochezia on ROS. Sx's more of an acute onset few days ago. Colon perf - benign abdomen, VSS, she is nontoxic, unlikely Appendicitis - considered but no LLQ pain, benign abdomen, VSS and afebrile, unlikely Ischemic Colitis - considered but no diarrhea or blood in stool, mild abd pain, benign abdomen IBS - considered w/ abd discomfort and pt does admit to long issue of constipation. Possible diagnosis cannot fully r/o at this time Work up/Results: N/a - defer u/s exam at this time as likely little to no benefit given exam and sx's at this time. Discussed w/ patient possibility of obtaining u/s to r/o diverticulitis but based on her sx's I do not believe this to be a likely diagnosis at this time. She agrees and believes that she is having constipation as well when discussing her s/s. She has had diverticulitis in the past and those episodes were different . She also reports that u/s won't get done for a few days anyway. She would rather hold off and f.u if her condition changes or does not resolve w/ BM to have imaging done. She is also seeing her pcp tomorrow morning. Plan/Discussion: Constipation: -Pt w/o significant BM in 4-5 days per her report, did have small one yesterday. See above for further discussion in the differential diagnosis section of the note. -She does have ABS x4, benign abdomen, mild pain/discomfort, non-toxic exam, and stable VSS w/o fever -She has only tried prunes w/o effectiveness -Has not tried stool softeners or MoM for relief as of yet. -She is educated to pecan picker stool softeners to help promote BM -She is given one capsule of docusate (she has taken in past w/ good effect and she is obs for 10 mi after admin and there is no evidence of reaction) on scene and is educated to trial OTC meds for relief -F/u emergently for any worsening pain, significant bloating, hard abdomen, fever/chills, lack of BM and gas, progression to N/V, blood or mucous in stool, black stools. -F/u with PCP tomorrow as planned Pt is on agreement and verbalizes understanding with the above plans at this time. Pt has no other questions or concerns at this time. All questions are answered to the best of my ability. Pt thanks us for our visit today. In order to obtain further information and compare any laboratory results/values, I have accessed patient records on the [employer] and old patient records. This information was pertinent in my medical decision making today. [email or web address] Not available 07/18/2021 12:03:51 10/18/2021 10/18/2021 Overview/History : 76 yo F established with and new to this provider has a PMH of COPD, lung CA, HLD, hypothyroidism, PE, factory V liden, antiphosphlipid antibody syndrome, DVT, tachycardia, presents with intermittent left sided abdominal pain has been going on for weeks and alleviated once she has a BM. Pain is described as sharp and tearing when it occurs. There is on going pain to the base of her the left and right base of her ribs. BMs are formed no diarrhea, no black or bloody stool. No fevers, or abdominal distension. She also has a resolving hematoma to the right lower leg she wanted evaluated. No urinary complaints. Exam: VSS General Appearance: non-toxic, well appearing, in no acute distress Mental Status: active and alert, follows commands appropriately Head: normocephalic, atraumatic Mouth and Throat: moist mucous membranes, no hoarseness, tonsils not enlarged, no exudates, no erythema Neck: supple, FROM, no lymphadenopathy, no midline spinal tenderness Pulmonary: normal effort, no respiratory distress, no tachypnea, no accessory muscle use, lungs sound clear to auscultation bilaterally Cardiovascular: RRR, normal S1, normal S2, no murmurs, no rubs, no gallops, no peripheral edema Gastrointestinal: no abdominal distention, normal bowels sounds, no tenderness to palpation, no guarding, no rebound tenderness, no rigidity Musculoskeletal: moves all extremities normally, no extremity swelling, AROM WNL, full and equal strength throughout Neurologic: alert and oriented x4, memory normal recent & remote, CN III-XII intact, strength is normal and equal bilaterally, gait and stance normal Psychologic: normal mood, normal affect, normal insight, normal cognition Skin: no rash, no lesions, no swelling, resolving hematoma of the R lower leg no evidence of infection or bleeding. DDx considered, but not limited to: constipation, diverticulitis This is a 76 y/o f who presents with intermittent left sided abdominal pain. that has been on going for weeks and aching pain at the base of her ribs bilaterally. The symptoms of abdominal pain are alleviated by having a bowel movement. Physical exam did not reveal concern for an acute abdomen at the time of this visit. Extensive time spent with the patient regarding symptoms. Recommend f/u with PCP and/or schedule an appointment with GI provider. Work up/Results: None Plan/Discussion: - maintain a food diary - schedule an appointment with your GI doctor - Tylenol 650 mg every 4-6 hours for pain The patient is advised to make an appt with PCP in 3-5 days to discuss ongoing symptoms/ further management. The patient is also advised to go to the ED immediately for any worsening symptoms. The patient understood and agreed with this plan. The patient was given discharge instructions and all questions were answered prior to DH team departure. Proper Personal Protective Equipment (PPE), including gloves, eye protection and masks were donned and doffed appropriately and all equipment cleaned using approved technique with germicidal disposable wipes prior to and after care of this patient according to [facility]'s infection prevention protocols. Time On Scene with Patient: 01:01:15 [email or web address] Not available 11/09/2021 02:10:55 12/29/2021 12/29/2021 Overview/History : 76 yo known to and this provider has a PMH of COPD, lung CA, HLD, hypothyroidism, PE, factor V leiden disorder, antiphospholipid syndrome, DVT, tachycardia, woke up this morning noting blood on her pillow. She does not know where the blood came from. She wears a cpap and a bite guard noted thin amount of dried blood on the left corner of her mouth but none in her mouth. She has no open wounds on except on her finger but states it was covered. No dental pain, uses a bite guard, no tongue soreness and wounds to her scalp. She states she looked this up on the internet and there were many reason with many of them being supernatural. Exam: General Appearance: non-toxic, well appearing, in no acute distress Mental Status: active and alert, follows commands appropriately Head and Neck: Eyes: no icterus, no discharge, lids grossly normal without stye or swelling, no periorbital swelling or erythema. Ears: external ears normal, TMs Intact, no middle ear effusion bilaterally, no TM erythema or bulging bilaterally, EACs clear. Nose: nares patent, no nasal discharge, no epistaxis, no septal hematoma Mouth and Throat: moist mucous membranes, no hoarseness, no drooling, uvula midline, tonsils not enlarged, no erythema, no dental abscess Pulmonary: normal effort, no respiratory distress, no tachypnea, lungs sound clear to auscultation bilaterally Cardiovascular: RRR, no murmurs, no rubs, no gallops Psychologic: normal mood, normal affect, normal insight, normal recent memory, normal remote memory Skin: no rash, no lesions, no erythema, no warmth Vital Signs: T 98,6 HR 77 BP 122/60 RR 18 SpO2 96% RA DDx considered, but not limited to: epistaxis, oral bleeding, bleeding from wound, bleeding from ear or scalp This is a 76 yo f presents for evaluation after noting blood on her pillow approximately 3 [place] when she woke this morning. She has factor V clotting disorder and antiphospholipid antibody syndrome and has had spontaneous hematomas appear. She has no bruising. She wears a CPAP and bite guard at night an noted bleeding along her mask on the left side. On PE there were no abnormalities noted and her skin was intact except for a cut on her right index finger but states there is no way the bleeding was from her finger as it was covered. At this time there is no indication where this bleeding manifested. Work up/Results: None Plan/Discussion: Patient advised to continue to monitor for bleeding. The patient is advised to make an appt with PCP in 3-5 days to discuss ongoing symptoms/ further management. The patient is also advised to go to the ED immediately for any worsening symptoms. The patient understood and agreed with this plan. The patient was given discharge instructions and all questions were answered prior to DH team departure. In order to obtain further information and compare any laboratory results/values, I have accessed old patient records. This information was pertinent in my medical decision making today. Proper Personal Protective Equipment (PPE), including gloves, eye protection and masks were donned and doffed appropriately and all equipment cleaned using approved technique with germicidal disposable wipes prior to and after care of this patient according to [facility]'s infection prevention protocols. [email or web address] Not available 12/29/2021 14:43:37 Plan of Treatment Reminders Order Date Submit Date Provider Last Modified By Organization Details Last Modified Time Details Appointments None recorded. Lab None recorded. Referral None recorded. Procedures None recorded. Surgeries None recorded. Imaging None recorded. Medication Orders docusate sodium 100 mg capsule 2021 022 [email or web address] [id number], [address], [place], [address], 19:28:14 Patient TargetsNo targets recorded. Patient Instructions Encounter Date Encounter Id Patient Instructions Last Modified By Organization Details Last Modified Time 03/14/2021 [id number] Thank you for yo ur visit with [facility] today. You were seen today for abdominal pain, nausea, vomiting and/or diarrhea. Medications may have been administered and lab tests may have been performed. At this time, we do not see evidence of a serious surgical or infectious cause of your symptoms. However, lab tests and an evaluation cannot always exclude appendicitis or other serious causes of abdominal pain. Please see a medical professional in 12-24 hours to be re-examined. Seek immediate medical attention for increased pain, vomiting or fever. If you develop any new or worsening symptoms and need after hours care, please go to nearest ER and/or call 911. If you have additional concerns or develop a change in your condition between 8am-10pm, please call [facility] at [phone] to help navigate your care. [email or web address] Not available 03/14/2021 12:46:32 10/18/2021 [id number] It was great to see you today! Thank you for letting [facility] assist you in your medical needs today. We cannot always find the exact cause of your symptoms during your initial visit. This is a summary of your care and your instructions: Please make sure you fill your prescriptions as soon as you are able, and take them as instructed. Please present to your Primary Care Physician if your symptoms are not resolving over the next 2-3 days. If you are noticing a change in your symptoms between the hours of 8am and 9pm, and cannot follow up with your PCP please [facility] for [facility]uation. Please present to the nearest EMERGENCY ROOM if you are experiencing any of the following: - worsening pain - fever above 101.0F despite using Tylenol (acetaminophen) - shortness of breath - chest pain or pressure - any symptom or concern that requires immediate evaluation [email or web address] Not available 11/05/2021 19:18:51 Reason for Referral None Reported. Results Created Date Observation Date Name Description Value Unit Range Abnormal Flag Note LastModifiedBy Organization Detail LastModifiedTime 02/12/20 21 02/11/2021 INR INR 1.2 0.9-1. 2 Not Available [place] [facility] [address] [facility] [place], [address], 02/11/2021 16:58:14 02/12/20 21 02/11/2021 , sylvia vance lower extre mity No observ ation record ed. [address] (Imaging) [address] [place], [address], 02/12/2021 08:19:41 Result Notes None recorded. Problems Name Problem SNOMED Code Status Onset Date Resolution Date Notes Provider Name and Address Organization Details Recorded Time Chronic obstructive pulmonary disease 39350174 Active 2018 ARCELIASEKOU FAJARDO NP [address], [facility] [place], [address], [place] [facility] 12:59:21 Problem Notes None recorded. Procedures Surgical History Date Name Laterality Status Provider Name and Address Organization Details Recorded Time Total Hysterectomy completed Cristine Sidhu, ALON [address], [place], [address], [place] [facility] 10/18/2021 19:39:45 lobectomy of lung completed Cristine frazier, CANE FEEDER [address], [place], [address], [place] [facility] 10/18/2021 19:40:05 Remove tonsils and adenoids completed Cristine Sidhu, ALON [address], [place], [address], [place] [facility] 10/18/2021 19:40:22 Imaging Results Imaging Date Name Status LastModified by Organiz ation Details LastModified Time 02/11/2021 US, duplex, venous, lower extremity completed [address] (Imaging) [address] [place], [address], 02/12/2021 08:19:41 Procedure Notes None recorded. Medical Equipment None Reported. Allergies Allergen ID Allergen Name Allergen Category Reaction Reaction Severity Criticality Documentation Date Start Date Code Code System Note Provider Name and Address Organization Details Recorded Time 50717 Product containin g penicilli n and antibioti c (product) medicatio n Not available Not available Not available 06/15/2019 21043 05 SNOMED ARCELIA ALON FAJARDO [address], [facility] [place], [address], [place] [facility] 12:56:48 82873 Substance with sulfonami de structure and antibacte rial mechanism of action (substanc e) medicatio n Not available Not available Not available 06/15/2019 28097 8003 SNOMED ARCELIA FAJARDO , CANE FEEDER [address], [place], [address], [place] [facility] 9 12:56:54 31944 Voltaren medicatio n Not available Not available Not available 06/15/201994236 6 RxNorm ARCELIA FAJARDO , CANE FEEDER [address], [place] [place], [address], [place] [facility] 9 12:57:01 91137 Iodinated contrast media (substanc e) medicatio n Not available Not available Not available 06/15/2019 09052 2004 SNOMED ARCELIA FAJARDO , CANE FEEDER [address], [place], [address], [place] [facility] 9 12:57:07 92626 vancomyci n medicatio n Not available Not available Not available 06/15/2019 90601 RxNorm ARCELIA FAJARDO , CANE FEEDER [address], [place], [address], [place] [facility] 9 12:57:14 52467 gentamici n medicatio n Not available Not available Not available 06/15/2019 31553 50 RxNorm ARCELIA FAJARDO , CANE FEEDER [address], [place], [address], [place] [facility] 9 12:57:20 96210 Biaxin medicatio n Not available Not available Not available 06/15/2019 61538 9 RxNorm ARCELIA FAJARDO , CANE FEEDER [address], [place], [address], [place] [facility] 9 12:57:27 91029 Avelox medicatio n Not available Not available Not available 06/15/2019 77282 6 RxNorm ARCELIA FAJARDO , CANE FEEDER [address], [place], [address], [place] [facility] 9 12:57:34 16047 erythromy jaylon medicatio n Not available Not available Not available 06/15/2019 4053 RxNorm ARCELIA FAJARDO , CANE FEEDER [address], [place], [address], [place] [facility] 9 12:57:41 87166 Zithromax medicatio n Not available Not available Not available 06/15/2019 12023 4 RxNorm ARCELIA FAJARDO , CANE FEEDER [address], [place], [address], [place] [facility] 9 12:57:51 62968 Levaquin medicatio n Not available Not available Not available 06/15/2019 86912 2 RxNorm ARCELIA FAJARDO , CANE FEEDER [address], [place], [address], [place] [facility] 12:58:02 84863 Cipro medicatio n Not available Not available Not available 06/15/2019 47362 3 RxNorm ARCELIA FAJARDO , CANE FEEDER [address], [place], [address], [place] [facility] 12:58:08 82080 morphine medicatio n Not available Not available Not available 06/15/2019 7052 RxNorm ARCELIA FAJARDO , CANE FEEDER [address], [place], [address], [place] [facility] 9 12:58:20 10690 procaine hydrochlo ride medicatio n Not available Not available Not available 06/15/2019 81310 8 RxNorm ARCELIA FAJARDO , CANE FEEDER [address], [place], [address], [place] [facility] 9 12:58:42 27725 barium sulfate medicatio n Not available Not available Not available 06/15/2019 1331 RxNorm ARCELIA FAJARDO , CANE FEEDER [address], [place], [address], [place] [facility] 9 12:58:54 88489 Gastrogra fin medicatio n Not available Not available Not available 06/15/2019 93579 5 RxNorm ARCELIA FAJARDO , CANE FEEDER [address], [place], [address], [place] [facility] 9 12:59:01 98694 Flagyl medicatio n Not available Not available Not available 06/15/201978867 6 RxNorm ARCELIA FAJARDO , CANE FEEDER [address], [place], [address], [place] [facility] 9 12:59:06 17081 shrimp allergeni c extract food Not available Not available Not available 06/15/2019 30194 2 RxNorm ARCELIA FAJARDO , CANE FEEDER [address], [place], [address], [place] [facility] 9 12:59:12 Medications Name Sig Start Date Stop Date Status Note LastModified by Organization Details LastModified Time furosemid e 40 mg tablet TAKE ONE TABLET BY MOUTH EVERY DAY 10/18 completed Not Available Not Available Not Available buspirone 5 mg tablet 10/18 completed Not Available Not Available Not Available atorvasta tin 80 mg tablet TAKE ONE TABLET BY MOUTH AT BEDTIME 10/18 completed Not Available Not Available Not Available prednison e 10 mg tablet TAKE ONE TABLET BY MOUTH EVERY DAY 10/18 completed Not Available Not Available Not Available doxycycli ne hyclate 100 mg capsule TAKE ONE CAPSULE BY MOUTH TWICE A DAY FOR 10 DAYS 10/18 completed Not Available Not Available Not Available trazodone 50 mg tablet TAKE TWO TABLETS BY MOUTH AT BEDTIME active Not Available Not Available No t Available cetirizin e 10 mg tablet TAKE ONE TABLET BY MOUTH EVERY DAY active Not Available Not Available No t Available cefpodoxi me 200 mg tablet TAKE ONE TABLET BY MOUTH TWICE A DAY UNTIL FINISHED . MUST TAKE WITH A MEAL OR FOOD 10/18 completed Not Available Not Available Not Available cefpodoxi me 100 mg tablet 03/14 completed Not Available Not Available Not Available benzonata te 200 mg capsule TAKE ONE CAPSULE BY MOUTH THREE TIMES A DAY FOR 14 DAYS NEEDED FOR COUGH 10/18 completed Not Available Not Available Not Available metoprolo l succinate ER 50 mg tablet,ex tended release 24 hr TAKE ONE TABLET BY MOUTH TWICE A DAY WITH BREAKFAS T AND DINNER. TAKE IMMEDIAT SOHAM FOLLOWIN G A MEAL 10/18 completed Not Available Not Available Not Available valacyclo vir 1 gram tablet 03/14 completed Not Available Not Available Not Available ondansetr on HCl 4 mg tablet 06/15 completed Not Available Not Available Not Available prednison e 20 mg tablet TAKE 2 TABLETS BY MOUTH EVERY DAY active Not Available Not Available No t Available isosorbid e mononitra te ER 30 mg tablet,ex tended release 24 hr TAKE ONE TABLET BY MOUTH EVERY DAY 10/18 completed Not Available Not Available Not Available prednison e 5 mg tablet TAKE ONE TABLET BY MOUTH EVERY DAY active Not Available Not Available No t Available clindamyc in HCl 150 mg capsule TAKE ONE CAPSULE BY MOUTH FOUR TIMES A DAY FOR 10 DAYS active Not Available Not Available No t Available acetamino phen 300 mg-codein e 15 mg tablet TAKE ONE TABLET BY MOUTH EVERY 8 HOURS NEEDED FOR PAIN 10/18 completed states refused to take Not Available Not Available Not Available cefpodoxi me 100 mg/5 mL oral suspensio n TAKE 2 TEASPOON FULS (10ML) BY MOUTH EVERY 12 HOURS. 10/18 completed Not Available Not Available Not Available omeprazol e 40 mg capsule,d elayed release TAKE ONE CAPSULE BY MOUTH EVERY DAY active Not Available Not Available No t Available aspirin 81 mg tablet,de layed release TAKE ONE TABLET BY MOUTH EVERY DAY 10/18 completed Not Available Not Available Not Available doxycycli ne monohydra te 100 mg tablet TAKE ONE TABLET BY MOUTH TWICE A DAY FOR 10 DAYS WITH FOOD UNTIL FINISHED 10/18 completed Not Available Not Available Not Available TobraDex 0.3 %-0.1 % eye ointment APPLY TO THE RIGHT EYE 3 TIMES DAILY FOR 1 WEEK 10/18 completed Not Available Not Available Not Available amoxicill in 400 mg-potass ium clavulana te 57 mg/5 mL oral suspensio n TAKE 11 ML BY MOUTH EVERY 12 HOURS FOR 5 DAYS. DISCARD ANY REMAINDE R 10/18 completed Not Available Not Available Not Available prednisol one acetate 1 % eye drops,dori pension INSTILL 1 DROP IN EACH EYE TWO TIMES A DAY 12 HOURS APART FOR 1 WEEK 10/18 completed Not Available Not Available Not Available pravastat in 10 mg tablet TAKE 1 TABLET BY MOUTH EVERY MONDAY, AND 10/18 completed Not Available Not Available Not Available Synthroid 25 mcg tablet TAKE ONE TABLET BY MOUTH ONCE DAILY 5 DAYS A WEEK AND TAKE TWO TABLETS 2 DAYS A WEEK OR DIRECTED active Not Available Not Available No t Available Proctozon e-HC 2.5 % topical cream perineal applicato r 10/18 completed Not Available Not Available Not Available meclizine 25 mg tablet TAKE 1 TABLET BY MOUTH THREE TIMES A DAY NEEDED FOR MOTION SICKNESS active Not Available Not Available No t Available doxycycli ne monohydra te 100 mg capsule TAKE ONE CAPSULE BY MOUTH TWICE A DAY FOR 5 DAYS 10/18 completed Not Available Not Available Not Available lidocaine 5 % topical patch APPLY ONE PATCH TOPICALL Y ONCE DAILY FOR 30 DAYS ON MOST PAINFUL AREA FOR UP TO 12 HOURS. 10/18 completed Not Available Not Available Not Available docusate sodium 100 mg capsule Take 1 cap PO once on scene. Administ ered at 1133 am 10/18 completed Not Available Not Available Not Available omeprazol e 20 mg capsule,d elayed release 03/14 completed Not Available Not Available Not Available monteluka st 10 mg tablet TAKE ONE TABLET BY MOUTH EVERY DAY active Not Available Not Available No t Available codeine 10 mg-guaife nesin 100 mg/5 mL oral liquid TAKE 10 ML BY MOUTH EVERY SIX HOURS NEEDED FOR COUGH 10/18 completed Not Available Not Available Not Available furosemid e 20 mg tablet TAKE ONE TABLET BY MOUTH EVERY DAY NEEDED FOR LEG SWELLING active Not Available Not Available No t Available gabapenti n 100 mg capsule TAKE TWO CAPSULES BY MOUTH AT BEDTIME 10/18 completed Not Available Not Available Not Available metoprolo l succinate ER 25 mg tablet,ex tended release 24 hr TAKE ONE TABLET BY MOUTH TWICE A DAY WITH BREAKFAS T AND DINNER active Not Available Not Available No t Available epinephri ne 0.3 mg/0.3 mL injection , auto-inje ctor USE DIRECTED FOR ANAPHYLA XIS THEN CALL 911 active Not Available Not Available No t Available albuterol sulfate HFA 90 mcg/actua tion aerosol inhaler 2021 active Not Available Not Available Not Avai lable fluticaso ne propionat e 50 mcg/actua tion nasal spray,dori pension SPRAY 2 PRAYS INTO EACH NOSTRIL TWICE A DAY active Not Available Not Available No t Available doxycycli ne hyclate 100 mg tablet TAKE ONE TABLET BY MOUTH TWO TIMES A DAY active Not Available Not Available No t Available diazepam 5 mg tablet TAKE 1/2 TO 1 TABLET BY MOUTH TWO TIMES A DAY NEEDED FOR ANXIETY / SLEEP active Not Available Not Available No t Available oxycodone 5 mg tablet 06/15 completed Not Available Not Available Not Available rosuvasta tin 5 mg tablet TAKE ONE TABLET BY MOUTH EVERY MONDAY, , AND 10/18 completed Not Available Not Available Not Available rosuvasta tin 10 mg tablet TAKE 1 TABLET BY MOUTH EVERY 2 DAYS. active Not Available Not Available No t Available Jantoven 1 mg tablet TAKE 1 TO 4 TABLETS BY MOUTH EVERY DAY DIRECTED BY THE [facility] active Not Available Not Available No t Available Flovent HFA 110 mcg/actua tion aerosol inhaler 06/15 completed Not Available Not Available Not Available [facility] 100,000 unit/gram topical powder APPLY ONE APPLICAT ION EXTERNAL THREE TIMES A DAY 10/18 completed Not Available Not Available Not Available warfarin active Not Available Not Avai lable Not Available Zyrtec 10/18 completed Not Available Not Available Not Available Advair HFA 230 mcg-21 mcg/actua tion aerosol inhaler INHALE 2 PUFFS TWICE DAILY. active Not Available Not Available No t Available peg 3350-elec trolytes 236 gram-22.7 4 gram-6.74 gram-5.86 gram solution TAKE 8 OUNCES BY MOUTH DIRECTED active Not Available Not Available No t Available ferrous sulfate 324 mg (65 mg iron) tablet,de layed release TAKE ONE TABLET BY MOUTH EVERY DAY WITH BREAKFAS T active Not Available Not Available No t Available azelastin e 205.5 mcg (0.15 %) nasal spray INHALE 2 SPRAYS INTO BOTH NOSRILS TWICE A DAY 10/18 completed Not Available Not Available Not Available Incruse Ellipta 62.5 mcg/actua tion powder for inhalatio n 10/18 completed Not Available Not Available Not Available Daliresp 250 mcg tablet TAKE ONE TABLET BY MOUTH EVERY DAY 10/18 completed Not Available Not Available Not Available baclofen 5 mg tablet TAKE ONE-HALF TABLET BY MOUTH EVERY DAY NEEDED FOR MUSCLE SPASM active Not Available Not Available No t Available Vitals Date Recorded Heart rate Respiratory rate Oxygen saturation Oxygen saturation in Arterial blood by Pulse oximetry Body temperature Systolic blood pressure Diastolic blood pressure Provider Name and Address Organization Details Last Updated DateTime 1 76 /min 16 /min 97 % 97 % 99 [degF] 114 mm[Hg] 62 mm[Hg] Not Available [facility] 1 12:53:01 Date Recorded Respiratory rate Oxygen saturation Oxygen saturation in Arterial blood by Pulse oximetry Heart rate Body temperature Systolic blood pressure Diastolic blood pressure Provider Name and Address Organization Details Last Updated DateTime 2 18 /min 98 % 98 % 84 /min 98.9 [degF] 112 mm[Hg] 58 mm[Hg] Not Available [facility] 2 11:16:01 Date Recorded Heart rate Oxygen saturation Oxygen saturation in Arterial blood by Pulse oximetry Respiratory rate Body temperature Systolic blood pressure Diastolic blood pressure Provider Name and Address Organization Details Last Updated DateTime 2 80 /min 96 % 96 % 18 /min 98.9 [degF] 142 mm[Hg] 66 mm[Hg] Not Available [facility] 2 19:28:07 Date Recorded Oxygen saturation Oxygen saturation in Arterial blood by Pulse oximetry Heart rate Respiratory rate Body temperature Systolic blood pressure Diastolic blood pressure Provider Name and Address Organization Details Last Updated DateTime 2 96 % 96 % 77 /min 18 /min 98.6 [degF] 122 mm[Hg] 60 mm[Hg] Not Available [facility] 2 13:41:00 Date Recorded Systolic blood pressure Diastolic blood pressure Provider Name and Address Organization Details Last Updated DateTime 10/18/2021 128 mm[Hg] 60 mm[Hg] Not Available [facility] 10/18/2021 20:16:17 Social History Question Answer Notes LastModified by Organizat ion Details LastModified Time Tobacco Smoking Status Never Smoker ARCELIA YIZNITSKY, CANE FEEDER [address], [place], [address], [place] [facility] 06/15/2019 13:05:25 Do You Have An Advance Directive? Yes Information not available 06/15/2019 What Is Your Level Of Alcohol Consumption? Occasional Information not available 10/18/2021 What Is Your Code Status? Full Code Information not available 06/15/2019 Drugs Abused None Information not available 06/15/2019 How Many Days In The Past Year Have You Had A Heavy Drinking Consumption (4+ Female, 5+ Male)? 0 Information not available 06/15/2019 Within The Past 12 Months, Has It Happened That The Food You Bought Just Didn't Last And You Didn't Have Money To Get More. No Information not available 10/18/2021 Within The Past 12 Months, Have You Worried That Your Food Would Run Out Before You Got Money To Buy More. Yes Information not available 06/15/2019 Fall Risk: Do You Feel Unsteady When Standing Or Walking? Yes Information not available 06/15/2019 Excessive Alcohol Or Drug Use No Information not available 10/18/2021 Does This Patient Have A PCP? Yes Information not available 10/18/2021 Has The Patient Seen Their PCP In The Past 6 Months? Yes Information not available 10/18/2021 We Know From Many Of Our Patients That Covering All Of Their Costs Can Be Difficult At Times. This Can Cause Stress And Impact Health. In The Past Year, Have You Been Unable To Get Any Of The Following When It Was Really Needed? No Information not available 10/18/2021 What Is Your Housing Situation Today? I Have Housing Information not available 10/18/2021 Would You Like Help Connecting To Resources? None Information not available 10/18/2021 Marital Status roula Informatio n not available 06/15/2019 What Was The Date Of Your Most Recent Tobacco Screening? 06/15/2019 Information not available 06/16/2019 Do You Use Any Illicit Or Recreational Drugs? No Information not available 10/18/2021 Do You Or Have You Ever Used Any Other Forms Of Tobacco Or Nicotine? No Information not available 10/18/2021 Sex: Unknown Functional Status None recorded. Mental Status None recorded. Family History Relationship Description Onset Age of this Age Resolved Age Notes LastModified by Organization Details LastModified Time Mother Hypertensive disorder lnovia Not available 2021 19:35:02 Medical History Condition Response Diabetes N High Cholesterol Y Cancer Y Pulmonary Embolism Y Stroke N Hypertension N Hypothyroidism Y COPD Y Kidney Disease N Gynecological HistoryNo gynecological history recorded. Obstetrics History GPAL:G 0 P 0 0 0 0 Past Encounters Encounter ID Performer Location Encounter Start Date Encounter Closed Date Diagnosis/Indication Diagnosis SNOMED-CT Code Diagnosis ICD10 Code Diagnosis Note [id number] ARCELIA FAJARDO NP [facility] [email or web address] [place] [address] 06/15/2019 12:54:37 06/17/2019 13:06:33 Excoriation of skin 212696707 T14.8XXA [id number] JANIS GILBERT NP [facility] [email or web address] [place] [address] 11/13/2019 16:03:00 11/18/2019 14:53:37 Pain in lower limb 52408425 M79.661 [id number] ARCELIA FAJARDO NP [facility] [address] [place] [address] 03/14/2020 20:02:43 03/18/2020 21:30:46 Traumatic hematoma 265213069 T14.8XXA Long-term current use of anticoagulant 670689719 Z79.01 Pain in left foot 199368 0024 55563 M79.672 [id number] EMELIA TOMPKINS [facility] [email or web address] [place] [address] 03/20/2020 12:50:59 03/23/2020 17:54:28 Contusion of lower leg 88024092 S80.10XA Swelling of lower leg 44 7083575 R22.42 [id number] [facility] [address] [place] [address] 09/29/2020 11:41:21 09/29/2020 12:38:57 Pain of intercostal space 021451605 R07.82 Exposure t o communicable disease 329942679 Z20.822 [id number] Waleska Matos NP [facility] [address] [place] [address] 02/11/2021 16:34:32 02/12/2021 11:08:44 Hematoma of lower leg 678255763 S80.11XA [id number] JAMES GARCIA NP [facility] [address] [facility] [place] [address] 03/14/2021 12:45:30 03/19/2021 14:09:43 Abdominal pain 82227770 R10.9 [id number] EMELIA Alfonso [facility] [address] [place] [address] 07/18/2021 10:56:56 07/22/2021 23:43:22 Constipation 19020796 K59.00 Left lower quadrant pain 216315170 R10.32 [id number] Cristine Sidhu NP [facility] [address] [facility] [place] [address] 10/18/2021 19:17:00 11/10/2021 16:33:03 Left sided abdominal pain 646292197 R10.9 Hematoma of lower leg 44 5584179 S80.10XA Long-term current use of anticoagulant 796062807 Z79.01 [id number] Cristine Sidhu NP [facility] [address] [place] [address] 12/29/2021 13:36:24 12/30/2021 10:20:27 Blood coagulation disorder 40251156 D68.61 D68.2 [id number] Olivia Goldberg NP [facility] [address] [place] [address] 01/18/2023 14:00:39 01/18/2023 15:01:49 Health Concerns Section Related Observation LastModified by Organization Detai ls LastModified Time None Recorded Concern Status LastModified by Organization Details LastModified Time None Recorded Advance Directives Directive Y: Payers Encounter Date Sequence Insurance Name Policy Number Policy Pettit Covered Member ID Pettit Member ID Guarantor Name 03/14/2021 1 [place] [employer] Jovana Steinino [id number] Jovana Helena 03/14/2021 2 [place] [id number] Jovana Helena [id number] Jovana Helena 07/18/2021 1 [place] [facility] Jovana Steinino [id number] Jovana Helena 07/18/2021 2 [place] [id number] Jovana Helena [id number] Jovana Helena 10/18/2021 1 [place] [facility] Jovana Steinino [id number] Jovana Helena 10/18/2021 2 [place] [id number] Jovana Helena [id number] Jovana Helena 12/29/2021 1 [place] [facility] Jovana Steinino [id number] Jovana Helena 12/29/2021 2 [place] [id number] Jovana Helena [id number] Jovana Helena 01/18/2023 1 [place] [facility] Jovana Steinino [id number] Jovana Helena 01/18/2023 2 [place] [id number] Jovana Steinino [id number] Jovana Steinino Notes Date Note Type Note Provider Name and Address Organization Details Recorded Time 1 text/html This is a 75-year-old female, [facility] who calls with concerns for severe abdominal pain. Her past medical history significant for COPD-oxygen dependent, lung cancer, history of pulmonary embolism, factor V Leiden, antiphospholipid antibody syndrome, platelet defects, history of DVT and tachycardia. She states for the past week she has been having severe abdominal pain with gas, blood in her stools and a brown mucus discharge. She states the pain is 7/10 sharp and cramping but constant. She does admit to a fever yesterday of 100.5 degrees Fahrenheit. She denies any nausea or vomiting at this time. She denies any actual diarrhea. She does admit that her white blood cell count on March 08 was 22 however her PCP is away from the office and no one has contacted her in regards to that lab finding according to the patient. She does admit she was also hospitalized approximately 10 days ago for pneumonia and influenza as well. She admits to decreased appetite and fair fluid intake. JAMES GARCIA NP [address], [place], [address], [place] [facility] 03/14/2021 13:21:32 2 text/html 76 YO F known to and new to providerShe is c/o today of some mild abd pain to the LLQPain started 4-5 days ago when she woke up w/ the pain, it waxes and wanes, pt states that she tends towards constipation and she has not had a full sized BM in the same amount of time.No recent trauma to the areaIt is a dull pain. Does not radiate anywhere.Has not tried anything other than prunes to promote a BM.No other associated sx's and she currently denies rash, fever/chills, diarrhea, blood or mucous in stool. Denies hematochezia. No other asscociated sx's. EMELIA Ni [address], [place], [address], [place] [facility] 07/18/2021 12:04:00 2 text/html 76 yo F with a PMH of COPD, lung CA, HLD, hypothyroidism, PE, factor V lidon, antiphospholipid antibody syndrome, has had left sided abdominal pain has for weeks and alleviated once she has a BM. Pain is described as sharp and tearing when it occurs. There is on going pain to the base of her the left and right base of her ribs. She also states BMs are formed no diarrhea, bloody stool or diarrhea. No fevers, or abdominal distension.She also has a resolving hematoma to the right lower leg she wanted evaluated. Cristine Sidhu NP [address], [place], [address], [place] [facility] 11/09/2021 02:11:05 2 text/html 76 yo with a PMH of COPD, lung CA, HLD, hypothyroidism, PE, factor V leiden disorder, antiphospholipid syndrome, DVT, tachycardia, woke up this morning noting blood on her pillow. She does not know where the blood came from. She wears a cpap and a bite guard noted thin amount of dried blood on the left corner of her mouth but none in her mouth. She has no open wounds on except on her finger but states it was covered. No dental pain, uses a bite guard, no tongue soreness and wounds to her scalp. She states she looked this up on the internet and there were many reason with many of them being supernatural. Cristine Sidhu NP [address], [place], [address], [place] [facility] 12/29/2021 14:43:53 3 text/html pt did not answer, visit canceled Olivia Goldberg NP [address], [place], [address], [place] [facility] 01/18/2023 19:34:36 OBGyn Episode No OBEpisode recorded.
--- OUTSIDE RECORDS SUMMARY | 2024-08-08 14:45 | XMS_ITS | Encounter Summary ---
Author Organization [facility] and [facility] Address [address] [place] [address] Care Team Providers Care Revenue Enforcement Collection Agent Name Role Phone Caitlyn Bowie MD Primary Care Provider [phone]- [phone] Encounter Details Date Type Department Care Team (Late st Contact Info) Description 07/31/2015 Scanned Document [facility] Health Information Management [address] [place] [address] External, Provider Social History Tobacco Use Types [...] [facility] [address] [facility] [address] [place], [place] [id number] Ronald Mills MD [address] [facility] [address] [place] [address] documented as of this encounter Procedures Procedure Name Priority Date/Time Associated Diagnosis Comments NUC MED/PET RESULT SCAN Routine 07/31/2015 documented in this encounter Results * Nuc Med/PET Result Scan (07/31/2015) us Provider External IMG SCAN REPORTS Edited Result - Final [facility] [place], [place], [facility] documented in this encounter Visit Diagnoses Not on filedocumented in this encounter Additional Health Concerns Infection Onset Date Last Indicated Resolved Time COVID-19 03/05/2022 03/05/2022 03/15/2022 7:18 PM EDT documented as of this encounter Care Teams Revenue Enforcement Collection Agent Relationship Specialty Start Date End Date Caitlyn Bowie MD [address] [facility] [address] [place] [address] PCP - General Internal Medicine 05/06/21 Henry Kelly MD Pulmonary Department [address] [facility] [place] [address] Physician Pulmonary Disease 09/06/17 06/22/20 documented as of this encounter
--- OUTSIDE RECORDS SUMMARY | 2024-08-08 14:45 | XMS_ITS | Encounter Summary ---
Author Organization [facility] and [facility] Address [address] [place] [address] Care Team Providers Care Wellness Trainer Name Role Phone Caitlyn Bowie MD Primary Care Provider [phone]- [phone] Encounter Details Date Type Department Care Team (Late st Contact Info) Description 10/07/2013 Scanned Document Thoracic Oncology Program at [address] [address] Suzy Kong MD [address] [place] [phone] Social History Tobacco Use Types Packs/Day [...] at [facility] [address] [facility] [address] [place], [place] [phone] Ronald Mills MD [address] [facility] [address] [place] [address] documented as of this encounter Visit Diagnoses Not on filedocumented in this encounter Additional Health Concerns Infection Onset Date Last Indicated Resolved Time COVID-19 03/05/2022 03/05/2022 03/15/2022 7:18 PM EDT documented as of this encounter Care Teams Wellness Trainer Relationship Specialty Start Date End Date Caitlyn Bowie MD [address] [facility] [address] [place] [address] PCP - General Internal Medicine 05/06/21 Henry Kelly MD Pulmonary Department [address] [facility] [place] [address] Physician Pulmonary Disease 09/06/17 06/22/20 documented as of this encounter
--- OUTSIDE RECORDS SUMMARY | 2024-08-08 14:45 | XMS_ITS | Encounter Summary ---
Author Organization [facility] and [facility] Address [address] [place] [address] Care Team Providers Care Thermospray Operator Name Role Phone Caitlyn Bowie MD Primary Care Provider +1- [phone] Encounter Details Date Type Department Care Team (Late st Contact Info) Description 11/09/2020 Scanned Document INTERFACE DEFAULT [address] [place] [address] System, Provider Not In Social History Tobacco [...] 1:00 PM EDT Telemedicine [facility] [address] [facility] [address] [place] [address] Ronald Mlils MD [address] [place] [address] [address] [place] [address] documented as of this encounter Visit Diagnoses Not on filedocumented in this encounter Additional Health Concerns Infection Onset Date Last Indicated Resolved Time COVID-19 03/05/2022 03/05/2022 03/15/2022 7:18 PM EDT Assessment Noted Time PHQ-9 Depression Total Score: 2 11/07/19 19 2:06 PM EDT documented as of this encounter Care Teams Thermospray Operator Relationship Specialty Start Date End Date Caitlyn Bowie MD [address] [address] PCP - General Internal Medicine 05/06/21 documented as of this encounter
--- OUTSIDE RECORDS SUMMARY | 2024-08-08 14:45 | XMS_ITS | Encounter Summary ---
Author Organization [facility] Address [address] [place] [address] Care Team Providers Care Leasing Sales Consultant Name Role Phone Sharon Vides Primary Care Provider Brennan Castro MD Primary Care Provider Unavailab Hayden Montes MD Unavailable [phone] Pallavi Flood NP Unavailable [phone]- [phone] Caitlyn Bowie MD Primary Care Provider Johnathon shaver Encounter Details Date Type Department Care Team Description 08/28/2018 Flex O Writer Operator Report Medical Records [address] [place] [id number] Abstract, Provider Social History Tobacco Use Types [...] on filedocumented in this encounter Care Teams Leasing Sales Consultant Relationship Specialty Start Date End Date Sharon Vides PCP - General Internal Medicine 08/02/18 05/26/20 Brennan Burnett MD PCP - General Internal Medicine 05/27/20 12/07/21 Caitlyn Bowie MD [address] [place] [address] PCP - General Internal Medicine 12/08/21 Hayden Shah MD [address] [place] [address] Specialist Cardiovascular Disease 09/01/20 Pallavi Flood NP [address] [place] [address] Cardiology 09/01/20 documented as of this encounter
--- OUTSIDE RECORDS SUMMARY | 2024-08-08 14:45 | XMS_ITS | Encounter Summary ---
Author Organization [facility] Address [address] [place] [address] Care Team Providers Care Reverse Logistics Analyst Name Role Phone Sharon Vides Primary Care Provider Brennan Castro MD Primary Care Provider Unavailab Hayden Montes MD Unavailable [phone] Pallavi Flood NP Unavailable [phone]- [phone] Caitlyn Bowie MD Primary Care Provider Johnathon shaver Encounter Details Date Type Department Care Team Description 12/28/2018 Orders Only Medical Records [address] [place] [address] Abstract, Provider Aspiration pneumonia, unspecified aspiration pneumonia type, unspecified laterality, unspecified part of lung (HCC) Social History Tobacco Use Types Packs/Day Years [...] as of this encounter Visit Diagnoses Diagnosis Aspiration pneumonia, unspecified aspiration pneumonia type, unspecified laterality, unspecified part of lung (HCC) documented in this encounter Care Teams Reverse Logistics Analyst Relationship Specialty Start Date End Date Sharon Vides PCP - General Internal Medicine 08/02/18 05/26/20 Brennan Burnett MD PCP - General Internal Medicine 05/27/20 12/07/21 Caitlyn Bowie MD [address] [place] [address] PCP - General Internal Medicine 12/08/21 Hayden Shah MD [address] [place] [address] Specialist Cardiovascular Disease 09/01/20 Pallavi Flood NP [address] [place] [address] Cardiology 09/01/20 documented as of this encounter
--- OUTSIDE RECORDS SUMMARY | 2024-08-08 14:45 | XMS_ITS | Encounter Summary ---
Author Organization [facility] and [facility] Address [address] [place] [address] Care Team Providers Care Assembler Erector Name Role Phone Ciatlyn Bowie MD Primary Care Provider [phone]- [phone] Encounter Details Date Type Department Care Team (Late st Contact Info) Description 01/27/2021 Scanned Document Cancer [facility] at [address] [address] External, Provider Social History Tobacco Use Types [...] [facility] [address] [facility] Building [address] [place], [place] [id number] Ronald Mills MD [address] [place] [address] [address] [place] [address] documented as of this encounter Procedures Procedure Name Priority Date/Time Associated Diagnosis Comments LAB SCAN Routine 01/27/2021 documented in this encounter Results * Lab Scan (01/27/2021) us Provider External LAB BLOOD ORDERABLES Final Res ult documented in this encounter Visit Diagnoses Not on filedocumented in this encounter Additional Health Concerns Infection Onset Date Last Indicated Resolved Time COVID-19 03/05/2022 03/05/2022 03/15/2022 7:18 PM EDT Assessment Noted Time PHQ-9 Depression Total Score: 2 11/07/19 19 2:06 PM EDT documented as of this encounter Care Teams Assembler Erector Relationship Specialty Start Date End Date Caitlyn Bowie MD [address] [address] PCP - General Internal Medicine 05/06/21 documented as of this encounter
--- OUTSIDE RECORDS SUMMARY | 2024-08-08 14:45 | XMS_ITS | Encounter Summary ---
Author Organization [facility] Address [address] [place] [address] Care Team Providers Care Clinical Documentation Nurse Name Role Phone Caitlyn Bowie MD Primary Care Provider [phone]- [phone] Encounter Details Date Type Department Care Team (Late st Contact Info) Description 02/08/2021 Scanned Document INTERFACE DEFAULT [address] [place] [address] System, Provider Not In Social History Tobacco [...] at [facility] [address] [facility] [address] [place] [address] Ronald Mills MD [address] [place] [address] [address] [place] [address] documented as of this encounter Visit Diagnoses Not on filedocumented in this encounter Additional Health Concerns Infection Onset Date Last Indicated Resolved Time COVID-19 03/05/2022 03/05/2022 03/15/2022 7:18 PM EDT Assessment Noted Time PHQ-9 Depression Total Score: 2 11/07/19 19 2:06 PM EDT documented as of this encounter Care Teams Clinical Documentation Nurse Relationship Specialty Start Date End Date Caitlyn Bowie MD [address] [address] PCP - General Internal Medicine 05/06/21 documented as of this encounter
--- OUTSIDE RECORDS SUMMARY | 2024-08-08 14:45 | XMS_ITS | Encounter Summary ---
Author Organization [facility] Address [address] [place] [address] Care Team Providers Care Donor Services Manager Name Role Phone Sharon Vides Primary Care Provider Brennan Castro MD Primary Care Provider Unavailab Hayden Montes MD Unavailable [phone] Pallavi Flood NP Unavailable [phone] Caitlyn Bowie MD Primary Care Provider Johnathon shaver Encounter Details Date Type Department Care Team Description 11/06/2018 Hardware Supplies Sales Representative Report Medical Records [address] [place] [address] Abstract, Provider Social History Tobacco Use Types [...] on filedocumented in this encounter Care Teams Donor Services Manager Relationship Specialty Start Date End Date Sharon Vides PCP - General Internal Medicine 08/02/18 05/26/20 Brennan Burnett MD PCP - General Internal Medicine 05/27/20 12/07/21 Caitlyn Bowie MD [address] [place] [address] PCP - General Internal Medicine 12/08/21 Hayden Shah MD [address] [place] [address] Specialist Cardiovascular Disease 09/01/20 Pallavi Flood NP [address] [place] [address] Cardiology 09/01/20 documented as of this encounter
--- OUTSIDE RECORDS SUMMARY | 2024-08-08 14:45 | XMS_ITS | Encounter Summary ---
Author Organization [facility] Address [address] [place] [address] Care Team Providers Care Subway Guard Name Role Phone Caitlyn Bowie MD Primary Care Provider [phone]- [phone] Encounter Details Date Type Department Care Team (Late st Contact Info) Description 02/02/2018 Scanned Document [facility] Health Information Management [address] [place] [address] External, Provider Social History Tobacco Use Types [...] [facility] at [facility] [address] [facility] Building [address] [place], [place] [address] Ronald Mills MD [address] [facility] [address] [place] [address] documented as of this encounter Procedures Procedure Name Priority Date/Time Associated Diagnosis Comments LAB SCAN Routine 02/02/2018 documented in this encounter Results * Lab Scan (02/02/2018) Blood specimen (specimen) us Provider External LAB BLOOD ORDERABLES Final Res ult documented in this encounter Visit Diagnoses Not on filedocumented in this encounter Additional Health Concerns Infection Onset Date Last Indicated Resolved Time COVID-19 03/05/2022 03/05/2022 03/15/2022 7:18 PM EDT documented as of this encounter Care Teams Subway Guard Relationship Specialty Start Date End Date Caitlyn Bowie MD [address] [facility] 1 [place] [address] PCP - General Internal Medicine 05/06/21 Henry Kelly MD Pulmonary Department 175 [facility], [address] [place] [address] Physician Pulmonary Disease 09/06/17 06/22/20 documented as of this encounter
--- OUTSIDE RECORDS SUMMARY | 2024-08-08 14:45 | XMS_ITS | Encounter Summary ---
Author Organization [facility] and [facility] Address [address] [place] [address] Care Team Providers Care Rehabilitation Aide/Scheduler Name Role Phone Caitlyn Bowie MD Primary Care Provider +1- [phone] Encounter Details Date Type Department Care Team (Late st Contact Info) Description 01/26/2018 Scanned Document [facility] Health Information Management [address] [place] [address] External, Provider Social History Tobacco Use Types [...] [facility] Center at [facility] [address] [facility] Building [address] [place] [address] Ronald Mills MD [address] [facility] [address] [place] [address] documented as of this encounter Procedures Procedure Name Priority Date/Time Associated Diagnosis Comments CARDIAC EKG RESULT SCAN Routine 01/26/2018 documented in this encounter Results * Cardiac EKG Result Scan (01/26/2018) us Provider External CV CARDIAC REPORT (CVR) Final Result documented in this encounter Visit Diagnoses Not on filedocumented in this encounter Additional Health Concerns Infection Onset Date Last Indicated Resolved Time COVID-19 03/05/2022 03/05/2022 03/15/2022 7:18 PM EDT documented as of this encounter Care Teams Rehabilitation Aide/Scheduler Relationship Specialty Start Date End Date Caitlyn Bowie MD 3400 [facility] 1 [place] [address] PCP - General Internal Medicine 05/06/21 Henry Kelly MD Pulmonary Department 175 [facility], [address] [place] [address] Physician Pulmonary Disease 09/06/17 06/22/20 documented as of this encounter
--- OUTSIDE RECORDS SUMMARY | 2024-08-08 14:45 | XMS_ITS | Encounter Summary ---
Author Organization [facility] Address [address] [place] [address] Care Team Providers Care Prepper Name Role Phone Sharon Vides Primary Care Provider Brennan Castro MD Primary Care Provider Unavailab Hayden Montes MD Unavailable [phone] Pallavi Flood NP Unavailable [phone]- [phone] Caitlyn Bowie MD Primary Care Provider Johnathon shaver Encounter Details Date Type Department Care Team Description 12/28/2018 Orders Only Pulmonology - [address] [place] [address] Henry Kelly MD Chest pain, unspecified type (Primary Dx) Social History Tobacco Use Types [...] as of this encounter Visit Diagnoses Diagnosis Chest pain, unspecified type- Primary documented in this encounter Care Teams Prepper Relationship Specialty Start Date End Date Sharon Vides PCP - General Internal Medicine 08/02/18 05/26/20 Brennan Burnett MD PCP - General Internal Medicine 05/27/20 12/07/21 Caitlyn Bowie MD [address] [place] [address] PCP - General Internal Medicine 12/08/21 Hayden Shah MD [address] [place] [address] Specialist Cardiovascular Disease 09/01/20 Pallavi Flood NP [address] [place] [id number] Cardiology 09/01/20 documented as of this encounter
--- OUTSIDE RECORDS SUMMARY | 2024-08-08 14:45 | XMS_ITS | Encounter Summary ---
Author Organization [facility] and [facility] Address [address] [place] [address] Care Team Providers Care Branding Machine Operator Name Role Phone Caitlyn Bowie MD Primary Care Provider +1- [phone] Encounter Details Date Type Department Care Team (Late st Contact Info) Description 02/07/2021 Scanned Document INTERFACE DEFAULT [address] [place] [address] System, Provider Not In Social History Tobacco [...] [facility] [address] [facility] Building [address] [place] [address] Ronald Mills MD [address] [place] [address] [address] [place] [address] documented as of this encounter Procedures Procedure Name Priority Date/Time Associated Diagnosis Comments LAB SCAN 02/07/2021 12:00 AM EDT documented in this encounter Results * LAB SCAN (02/07/2021 12:00 AM EDT) 02/07/2021 us Provider Not In System LAB BLOOD ORDERABLES Carmina l Result documented in this encounter Visit Diagnoses Not on filedocumented in this encounter Additional Health Concerns Infection Onset Date Last Indicated Resolved Time COVID-19 03/05/2022 03/05/2022 03/15/2022 7:18 PM EDT Assessment Noted Time PHQ-9 Depression Total Score: 2 11/07/19 19 2:06 PM EDT documented as of this encounter Care Teams Branding Machine Operator Relationship Specialty Start Date End Date Caitlyn Bowie MD [address] [address] PCP - General Internal Medicine 05/06/21 documented as of this encounter
--- OUTSIDE RECORDS SUMMARY | 2024-08-08 14:45 | XMS_ITS | Encounter Summary ---
Author Organization [facility] Address [address] [place] [address] Care Team Providers Care Oven Worker Name Role Phone Caitlyn Bowie MD Primary Care Provider +1- [phone] Encounter Details Date Type Department Care Team ([facility] st Contact Info) Description 08/26/2014 Documentation [facility] [address] [place] [address] Shilpi Ibarra [address] [place] [address] Social History Tobacco Use Types Packs/Day Years [...] encounter Progress Notes * Shilpi Ibarra - 08/26/2014 1:03 PM EST Images from the original note were not included. [facility] Progress Note This is a 69 y.o. female who was provided services by [facility]. Service Provided By:: Shilpi Ibarra Patient Status: return Length of Appointment: 60 minutes documented in this encounter Plan of Treatment Upcoming Encounters Date Type Department Care Team ([facility] st Contact Info) Description 10/31/2024 1:00 PM EDT Telemedicine [facility] 240 [facility] [address] [place] [address] Ronald Milsl MD 240 [facility] Max [address] [place] [address] documented as of this encounter Visit Diagnoses Not on filedocumented in this encounter Additional Health Concerns Infection Onset Date Last Indicated Resolved Time COVID-19 03/05/2022 03/05/2022 03/15/2022 7:18 PM EDT documented as of this encounter Care Teams Oven Worker Relationship Specialty Start Date End Date Caitlyn Bowie MD 3400 [facility] 1 [place] [address] PCP - General Internal Medicine 05/06/21 Henry Kelly MD Pulmonary Department 175 [facility], [address] [place] [address] Physician Pulmonary Disease 09/06/17 06/22/20 documented as of this encounter
--- OUTSIDE RECORDS SUMMARY | 2024-08-08 14:45 | XMS_ITS | Encounter Summary ---
Author Organization [facility] Address [address] [place] [address] Care Team Providers Care Elementary Librarian Name Role Phone Caitlyn Bowie MD Primary Care Provider +1- [phone] Encounter Details Date Type Department Care Team (Late st Contact Info) Description 05/14/2015 Scanned Document [facility] Health Information Management [address] [place] [address] External, Provider Social History Tobacco Use Types [...] [facility] 240 [facility] Building [address] [place], [place] [address] Ronald Mills MD 240 [facility] A1 [place] [address] documented as of this encounter Visit Diagnoses Not on filedocumented in this encounter Additional Health Concerns Infection Onset Date Last Indicated Resolved Time COVID-19 03/05/2022 03/05/2022 03/15/2022 7:18 PM EDT documented as of this encounter Care Teams Elementary Librarian Relationship Specialty Start Date End Date Caitlyn Bowie MD 3400 [facility] 1 [place] [address] PCP - General Internal Medicine 05/06/21 Henry Kelly MD Pulmonary Department 175 [facility], [address] [place] [address] Physician Pulmonary Disease 09/06/17 06/22/20 documented as of this encounter
--- OUTSIDE RECORDS SUMMARY | 2024-08-08 14:45 | XMS_ITS | Encounter Summary ---
Author Organization [facility] Address [address] [place] [address] Care Team Providers Care Check Processor Name Role Phone Sharon Vides Primary Care Provider Unava ilable Brennan Burnett MD Primary Care Provider Unavailab Hayedn Montes MD Unavailable [phone] Pallavi Flood NP Unavailable [phone]- [phone] Caitlyn Bowie MD Primary Care Provider Unava ilable Reason for Visit * Reason Onset Date Comments Wheezing 10/29/2018 Encounter Details Date Type Department Care Team Description 10/29/2018 Telephone Pulmonology - [address] [place] [address] Henry Kelly MD Wheezing Social History Tobacco Use Types Packs/Day Years [...] encounter Miscellaneous Notes * Telephone Encounter - Henry Kelly MD - 10/29/2018 6:33 PM EDT Please refax OV and CPAP/BIPAP letter rx to [facility] * Telephone Encounter - Nasima Sr M.A. - 10/29/2018 12:46 PM EDT Please advise. * Telephone Encounter - Val Luciano - 10/29/2018 12:29 PM EDT Symptoms patient is presenting: wheezing and yellow phlegm If pain or injury related was it due to an accident at work or from a motor vehicle accident? NO If yes, gather 3rd democrat insurance information Date of accident/Injury: How long has patient had these symptoms?: started this morning PCP: Sharon Vides MD [place] / [place] / Product Type: [place]ARE [id number] documented in this encounter Plan of Treatment Not on file documented as of this encounter Visit Diagnoses Not on filedocumented in this encounter Care Teams Check Processor Relationship Specialty Start Date End Date Sharon Vides PCP - General Internal Medicine 08/02/18 05/26/20 Brennan Burnett MD PCP - General Internal Medicine 05/27/20 12/07/21 Caitlyn Bowie MD [address] [place] [address] PCP - General Internal Medicine 12/08/21 Hayden Shah MD [address] [place] [address] Specialist Cardiovascular Disease 09/01/20 Pallavi Flood NP [address] [place] [address] Cardiology 09/01/20 documented as of this encounter
--- OUTSIDE RECORDS SUMMARY | 2024-08-08 14:46 | XMS_ITS | Encounter Summary ---
Author Organization [facility] Address [address] [place] [address] Care Team Providers Care Superintendent Laundry Name Role Phone Caitlyn Bowie MD Primary Care Provider +1- [phone] Encounter Details Date Type Department Care Team (Late st Contact Info) Description 04/18/2018 Scanned Document [facility] Health Information Management [address] [place] [address] External, Provider Social History Tobacco Use Types [...] Telemedicine [facility] at [facility] 240 [facility] Building [address] [place], [place] [id number] Ronald Mills MD 240 [facility] [address] [place] [address] documented as of this encounter Procedures Procedure Name Priority Date/Time Associated Diagnosis Comments LAB SCAN Routine 04/18/2018 documented in this encounter Results * Lab Scan (04/18/2018) Blood specimen (specimen) us Provider External LAB BLOOD ORDERABLES Final Res ult documented in this encounter Visit Diagnoses Not on filedocumented in this encounter Additional Health Concerns Infection Onset Date Last Indicated Resolved Time COVID-19 03/05/2022 03/05/2022 03/15/2022 7:18 PM EDT documented as of this encounter Care Teams Superintendent Laundry Relationship Specialty Start Date End Date Caitlyn Bowie MD 3400 [facility] 1 [place] [address] PCP - General Internal Medicine 05/06/21 Henry Kelly MD Pulmonary Department 175 [facility], [address] [place] [address] Physician Pulmonary Disease 09/06/17 06/22/20 documented as of this encounter
--- OUTSIDE RECORDS SUMMARY | 2024-08-08 14:46 | XMS_ITS | Encounter Summary ---
Author Organization [facility] and [facility] Address [address] [place] [address] Care Team Providers Care Sustainability Coach Name Role Phone Caitlyn Bowie MD Primary Care Provider +1- [phone] Encounter Details Date Type Department Care Team (Late st Contact Info) Description 11/18/2021 Scanned Document [facility] Health Information Management [address] [place] [address] External, Provider Social History Tobacco Use Types [...] [facility] 240 [facility] [address] [place], [place] [id number] Ronald Mills MD [address] [place] [address] [address] [place] [address] documented as of this encounter Visit Diagnoses Not on filedocumented in this encounter Additional Health Concerns Infection Onset Date Last Indicated Resolved Time COVID-19 03/05/2022 03/05/2022 03/15/2022 7:18 PM EDT Assessment Noted Time PHQ-9 Depression Total Score: 2 11/07/19 19 2:06 PM EDT documented as of this encounter Care Teams Sustainability Coach Relationship Specialty Start Date End Date Caitlyn Bowie MD [address] [address] PCP - General Internal Medicine 05/06/21 documented as of this encounter
--- OUTSIDE RECORDS SUMMARY | 2024-08-08 14:46 | XMS_ITS | Encounter Summary ---
Author Organization [facility] Address [address] [place] [address] Care Team Providers Care Remote Sensing Program Manager Name Role Phone Caitlyn Bowie MD Primary Care Provider +1- [phone] Encounter Details Date Type Department Care Team (Late st Contact Info) Description 12/28/2021 Scanned Document INTERFACE DEFAULT [address] [place] [address] System, Provider Not In Social History Tobacco [...] 1:00 PM EDT Telemedicine [facility] at [facility] 240 [facility] Building [address] [place] [address] Ronald Mills MD [address] [place] [address] [address] [place] [address] documented as of this encounter Visit Diagnoses Not on filedocumented in this encounter Additional Health Concerns Infection Onset Date Last Indicated Resolved Time COVID-19 03/05/2022 03/05/2022 03/15/2022 7:18 PM EDT Assessment Noted Time PHQ-9 Depression Total Score: 2 11/07/19 19 2:06 PM EDT documented as of this encounter Care Teams Remote Sensing Program Manager Relationship Specialty Start Date End Date Caitlyn Bowie MD [address] [address] PCP - General Internal Medicine 05/06/21 documented as of this encounter
--- OUTSIDE RECORDS SUMMARY | 2024-08-08 14:46 | XMS_ITS | Encounter Summary ---
Author Organization [facility] Address [address] [place] [address] Care Team Providers Care Manager Technical Name Role Phone Sharon Vides Primary Care Provider Unava ilable Brennan Burnett MD Primary Care Provider Unavailab Hayden Montes MD Unavailable [phone] Pallavi Flood NP Unavailable [phone]- [phone] Caitlyn Bowie MD Primary Care Provider Unava ilable Reason for Visit * Reason Onset Date Comments refill request 01/28/2019 Encounter Details Date Type Department Care Team Description 01/28/2019 Refill Pulmonology - [address] [place] [address] Henry Kelly MD refill request Social History Tobacco Use Types Packs/Day Years [...] encounter Miscellaneous Notes * Telephone Encounter - Paloma Kelly - 01/28/2019 11:08 AM EDT Patient would like script to be: E-PRESCRIBED/FAXED TO PHARMACY WHEN WAS THE PATIENT'S LAST APPOINTMENT IN ADULT MEDICINE? 01/08/19 WHEN WAS THE LAST TIME THE PATIENT SAW THEIR PCP? Same as above Does patient have an upcoming appointment? Yes 02/04/19 (THE MEDICATION REQUESTED IS ON THE MED LIST ABOVE) All of the medications requested were on the CURRENT MEDS list Did you check the Pharmacy information above?: YES Patient wants: 30 -day supply Is this a mail order prescription request ? NO If the refill is from a FAXED refill request what is the RX # listed on the fax? N/A Patients current insurance carrier is: [place] / [place] / Product Type: MEDICARE [id number] documented in this encounter Plan of Treatment Not on file documented as of this encounter Visit Diagnoses Not on filedocumented in this encounter Care Teams Manager Technical Relationship Specialty Start Date End Date Sharon Vides PCP - General Internal Medicine 08/02/18 05/26/20 Brennan Burnett MD PCP - General Internal Medicine 05/27/20 12/07/21 C[address]lyn [address] [place] [address] PCP - General Internal Medicine 12/08/21 Hayden Shah MD [address] [place] [address] Specialist Cardiovascular Disease 09/01/20 [address]avi Flood NP [address] [place] [address] Cardiology 09/01/20 documented as of this encounter
--- OUTSIDE RECORDS SUMMARY | 2024-08-08 14:46 | XMS_ITS | Encounter Summary ---
Author Organization [facility] and [facility] Address [address] [place] [address] Care Team Providers Care Gun Tester Name Role Phone Caitlyn Bowie MD Primary Care Provider +1- [phone] Encounter Details Date Type Department Care Team (Late st Contact Info) Description 03/13/2015 Scanned Document [facility] Health Information Management [address] [place] [address] External, Provider Social History Tobacco Use Types [...] [facility] [address] [facility] [address] [place], [place] [phone] Ronald Mills MD 240 [facility] [address] [place] [address] documented as of this encounter Procedures Procedure Name Priority Date/Time Associated Diagnosis Comments LAB SCAN Routine 02/16/2015 LAB SCAN Routine 02/16/2015 documented in this encounter Results * Lab Scan (02/16/2015) Blood specimen (specimen) us Provider External LAB BLOOD ORDERABLES Final Res ult Performing Organization Address [facility]/ZIP Co de Phone Number [facility] * Lab Scan (02/16/2015) Blood specimen (specimen) Provider External LAB BLOOD ORDERABLES Final Res ult Performing Organization Address [facility] Co de Phone Number [facility] documented in this encounter Visit Diagnoses Not on filedocumented in this encounter Additional Health Concerns Infection Onset Date Last Indicated Resolved Time COVID-19 03/05/2022 03/05/2022 03/15/2022 7:18 PM EDT documented as of this encounter Care Teams Gun Tester Relationship Specialty Start Date End Date Caitlyn Bowie MD [address] [facility] 1 [place] [address] PCP - General Internal Medicine 05/06/21 Henry Kelly MD Pulmonary Department 175 [facility], [address] [place] [address] Physician Pulmonary Disease 09/06/17 06/22/20 documented as of this encounter
--- OUTSIDE RECORDS SUMMARY | 2024-08-08 14:46 | XMS_ITS | Encounter Summary ---
Author Organization [facility] and [facility] Address [address] [place] [address] Care Team Providers Care Family Nurse Name Role Phone Caitlyn Bowie MD Primary Care Provider +1- [phone] Encounter Details Date Type Department Care Team (Late st Contact Info) Description 01/26/2018 Scanned Document [facility] Health Information Management [address] [place] [address] External, Provider Social History Tobacco Use Types [...] at [facility] [address] [facility] [address] [place] [address] Ronald Mills MD 240 [facility] [address] [place] [address] documented as of this encounter Procedures Procedure Name Priority Date/Time Associated Diagnosis Comments NUC MED/PET RESULT SCAN Routine 01/26/2018 documented in this encounter Results * Nuc Med/PET Result Scan (01/26/2018) us Provider External IMG SCAN REPORTS Final Result documented in this encounter Visit Diagnoses Not on filedocumented in this encounter Additional Health Concerns Infection Onset Date Last Indicated Resolved Time COVID-19 03/05/2022 03/05/2022 03/15/2022 7:18 PM EDT documented as of this encounter Care Teams Family Nurse Relationship Specialty Start Date End Date Caitlyn Bowie MD 34[address] [facility] 1 [place] [address] PCP - General Internal Medicine 05/06/21 Henry Kelly MD Pulmonary Department [address] [place] [address], [address] [place] [address] Physician Pulmonary Disease 09/06/17 06/22/20 documented as of this encounter
--- OUTSIDE RECORDS SUMMARY | 2024-08-08 14:46 | XMS_ITS | Encounter Summary ---
Author Organization [facility] Address [address] [place] [address] Care Team Providers Care Instructional Designer Name Role Phone Sharon Vides Primary Care Provider Brennan Castro MD Primary Care Provider Unavailab Hayden Montes MD Unavailable [phone] Pallavi Flood NP Unavailable [phone]- [phone] Caitlyn Bowie MD Primary Care Provider Johnathon shaver Encounter Details Date Type Department Care Team Description 01/26/2019 [facility] Medical Records [address] [place] [address] Landen Aaron DO Social History Tobacco Use Types Packs/Day Years [...] on filedocumented in this encounter Care Teams Instructional Designer Relationship Specialty Start Date End Date Sharon Vides PCP - General Internal Medicine 08/02/18 05/26/20 Brnenan Burnett MD PCP - General Internal Medicine 05/27/20 12/07/21 Caitlyn Bowie MD [address] [place] [address] PCP - General Internal Medicine 12/08/21 Hayden Shah MD [address] [place], [place] [address] Specialist Cardiovascular Disease 09/01/20 Pallavi Flood NP [address] [place], [place] [phone] Cardiology 09/01/20 documented as of this encounter
--- OUTSIDE RECORDS SUMMARY | 2024-08-08 14:46 | XMS_ITS | Encounter Summary ---
Author Organization [facility] and [facility] Address [address] [place] [address] Care Team Providers Care Permit Specialist Name Role Phone Caitlyn Bowie MD Primary Care Provider +1- [phone] Encounter Details Date Type Department Care Team (Late st Contact Info) Description 02/19/2015 Scanned Document [facility] Health Information Management [address] [place] [address] External, Provider Social History Tobacco Use Types [...] [facility] 240 [facility] [address] [place], [place] [phone] Ronald Mills MD [address] [facility] [address] [place] [address] documented as of this encounter Procedures Procedure Name Priority Date/Time Associated Diagnosis Comments LAB SCAN Routine 02/19/2015 documented in this encounter Results * Lab Scan (02/19/2015) Blood specimen (specimen) us Provider External LAB BLOOD ORDERABLES Final Res ult [facility] documented in this encounter Visit Diagnoses Not on filedocumented in this encounter Additional Health Concerns Infection Onset Date Last Indicated Resolved Time COVID-19 03/05/2022 03/05/2022 03/15/2022 7:18 PM EDT documented as of this encounter Care Teams Permit Specialist Relationship Specialty Start Date End Date Caitlyn Bowie MD 3400 [facility] 1 [place] [address] PCP - General Internal Medicine 05/06/21 Henry Kelly MD Pulmonary Department 175 [facility], [address] [place] [address] Physician Pulmonary Disease 09/06/17 06/22/20 documented as of this encounter
--- OUTSIDE RECORDS SUMMARY | 2024-08-08 14:46 | XMS_ITS | Encounter Summary ---
Author Organization [facility] and [facility] Address [address] [place] [address] Care Team Providers Care Steam And Power Superintendent Name Role Phone Caitlyn Bowie MD Primary Care Provider +1- [phone] Encounter Details Date Type Department Care Team (Late st Contact Info) Description 11/18/2021 Scanned Document INTERFACE DEFAULT [address] [place] [address] System, Provider Not In Social History Tobacco [...] PM EDT Telemedicine [facility] at [facility] 240 [facility] [address] [place] [address] Ronald Mills MD [address] [place] [address] [address] [place] [address] documented as of this encounter Visit Diagnoses Not on filedocumented in this encounter Additional Health Concerns Infection Onset Date Last Indicated Resolved Time COVID-19 03/05/2022 03/05/2022 03/15/2022 7:18 PM EDT Assessment Noted Time PHQ-9 Depression Total Score: 2 11/07/19 19 2:06 PM EDT documented as of this encounter Care Teams Steam And Power Superintendent Relationship Specialty Start Date End Date Caitlyn Bowie MD [address] [address] PCP - General Internal Medicine 05/06/21 documented as of this encounter
--- OUTSIDE RECORDS SUMMARY | 2024-08-08 14:46 | XMS_ITS | Encounter Summary ---
Author Organization [facility] and [facility] Address [address] [place] [address] Care Team Providers Care Middle School Director Name Role Phone Caitlyn Bowie MD Primary Care Provider +1- [phone] Encounter Details Date Type Department Care Team (Late st Contact Info) Description 10/29/2021 Scanned Document [facility] Health Information Management [address] [place] [address] External, Provider Social History Tobacco Use Types [...] [facility] 240 [facility] [address] [place], [place] [phone] Ronald Mills MD [address] [place] [address] [address] [place] [address] documented as of this encounter Procedures Procedure Name Priority Date/Time Associated Diagnosis Comments LAB SCAN Routine 10/29/2021 documented in this encounter Results * Lab Scan (10/29/2021) us Provider External LAB BLOOD ORDERABLES Final Res ult documented in this encounter Visit Diagnoses Not on filedocumented in this encounter Additional Health Concerns Infection Onset Date Last Indicated Resolved Time COVID-19 03/05/2022 03/05/2022 03/15/2022 7:18 PM EDT Assessment Noted Time PHQ-9 Depression Total Score: 2 11/07/19 19 2:06 PM EDT documented as of this encounter Care Teams Middle School Director Relationship Specialty Start Date End Date Caitlyn Bowie MD [address] [address] PCP - General Internal Medicine 05/06/21 documented as of this encounter
--- OUTSIDE RECORDS SUMMARY | 2024-08-08 14:46 | XMS_ITS | Encounter Summary ---
Author Organization [facility] and [facility] Address [address] [place] [address] Care Team Providers Care Legal Administrator Name Role Phone Caitlyn Bowie MD Primary Care Provider +1- [phone] Encounter Details Date Type Department Care Team (Late st Contact Info) Description 03/26/2015 Scanned Document Cardiovascular Medicine at [address] [place] [address] Norma Renee MD [address] [place] [phone] Social History Tobacco Use Types Packs/Day Years [...] 1:00 PM EDT Telemedicine Cancer Center at [address] [place], [place] [phone] Ronald Mills MD [address] [place] [address] [address] [place] [address] documented as of this encounter Visit Diagnoses Not on filedocumented in this encounter Additional Health Concerns Infection Onset Date Last Indicated Resolved Time COVID-19 03/05/2022 03/05/2022 03/15/2022 7:18 PM EDT documented as of this encounter Care Teams Legal Administrator Relationship Specialty Start Date End Date Caitlyn Bowie MD 3400 [facility] 1 [place] [address] PCP - General Internal Medicine 05/06/21 Henry Kelly MD Pulmonary Department 175 [facility], [address] [place] [address] Physician Pulmonary Disease 09/06/17 06/22/20 documented as of this encounter
--- OUTSIDE RECORDS SUMMARY | 2024-08-08 14:46 | XMS_ITS | Encounter Summary ---
Author Organization [facility] Address [address] [place] [address] Care Team Providers Care Revenue Accountant Name Role Phone Caitlyn Bowie MD Primary Care Provider +1- [phone] Encounter Details Date Type Department Care Team (Late st Contact Info) Description 12/04/2014 Scanned Document [facility] Health Information Management [address] [place] [address] External, Provider Social History Tobacco Use Types [...] at [facility] [address] [facility] Building [address] [place], [place] [phone] Ronald Mills MD 240 [facility] [address] [place] [address] documented as of this encounter Procedures Procedure Name Priority Date/Time Associated Diagnosis Comments LAB SCAN Routine 12/04/2014 documented in this encounter Results * Lab Scan (12/04/2014) Blood specimen (specimen) us Provider External LAB BLOOD ORDERABLES Final Res ult [facility] documented in this encounter Visit Diagnoses Not on filedocumented in this encounter Additional Health Concerns Infection Onset Date Last Indicated Resolved Time COVID-19 03/05/2022 03/05/2022 03/15/2022 7:18 PM EDT documented as of this encounter Care Teams Revenue Accountant Relationship Specialty Start Date End Date Caitlyn Bowie MD 3400 [facility] 1 [place] [address] PCP - General Internal Medicine 05/06/21 Henry Kelly MD Pulmonary Department 175 [facility], [address] [place] [address] Physician Pulmonary Disease 09/06/17 06/22/20 documented as of this encounter
--- OUTSIDE RECORDS SUMMARY | 2024-08-08 14:46 | XMS_ITS | Encounter Summary ---
Author Organization [facility] and [facility] Address [address] [address] Care Team Providers Care Assistant Manager Bilingual Name Role Phone Caitlyn Bowie MD Primary Care Provider +1- [phone] Encounter Details Date Type Department Care Team (Late st Contact Info) Description 03/11/2015 Scanned Document [facility] Health Information Management [address] [place] [address] External, Provider Social History Tobacco Use Types [...] [facility] 240 [facility] Building [address] [place], [place] [phone] Ronald Mills MD 240 [facility] [address] [place] [address] documented as of this encounter Procedures Procedure Name Priority Date/Time Associated Diagnosis Comments LAB SCAN Routine 03/11/2015 documented in this encounter Results * Lab Scan (03/11/2015) Blood specimen (specimen) us Provider External LAB BLOOD ORDERABLES Edited Re sult - Final [facility] documented in this encounter Visit Diagnoses Not on filedocumented in this encounter Additional Health Concerns Infection Onset Date Last Indicated Resolved Time COVID-19 03/05/2022 03/05/2022 03/15/2022 7:18 PM EDT documented as of this encounter Care Teams Assistant Manager Bilingual Relationship Specialty Start Date End Date Caitlyn Bowie MD 3400 [facility] 1 [place] [address] PCP - General Internal Medicine 05/06/21 Henry Kelly MD Pulmonary Department 175 [facility], [address] [place] [address] Physician Pulmonary Disease 09/06/17 06/22/20 documented as of this encounter
--- OUTSIDE RECORDS SUMMARY | 2024-08-08 14:46 | XMS_ITS | Encounter Summary ---
Author Organization [facility] and [facility] Address [address] [place] [address] Care Team Providers Care Supervisor Plating And Point Assembly Name Role Phone Caitlyn Bowie MD Primary Care Provider +1- [phone] Reason for Visit * Reason Onset Date Comments Triage 07/15/2024 Encounter Details Date Type Department Care Team (Late st Contact Info) Description 07/15/2024 Telephone [facility] at [address] [address] Ronald Mills MD [address] [place] [address] Triage Social History Tobacco Use Types Packs/Day Years [...] encounter Miscellaneous Notes * Telephone Encounter - Taya Nuno RN - 07/22/2024 2:53 PM EST Pt has been communicating with Dr Mills directly. They are discussing potentially holding warfarin for an extended period of time. Pt relayed hematoma is improving. * Telephone Encounter - Kirstin Travis RN - 07/15/2024 6:15 PM EST TC returned to patient. She states she was lying down last night and felt a pain on her L lagos. She looked down and noticeda hematoma. She denies any trauma to the leg. Denies any other bleeding. States the hematoma appeared spontaneously. She describes it as being the size of a nickel. I asked if she could send a picture on MyChart- shesaid she does not use MyChart. She wanted to send an email. Patient is on coumadin (managed locally as she lives in [place]). I asked if she contacted her coumadin clinic- she said no. She has an INR monitor at home but did not check her INR today. She did call her PCP and has an appt tomorrow. I told her I will reach out to Dr. Mills and do my best to give her a plan tonight. We unfortunately received this call late in the day. Addendum: Spoke with EMELIA Heard who recommended that patient test her INR now at home. Patient tested it while we were on the phone and said it come back at 2.0. She states it was also 2.0 on 07/08. Confirmed that patient's INR target range is 1.5-2.0. Per EMELIA Heard and Dr. Mills, patient was instructed to hold coumadin tonight as she has some room tocome down. Per Dr. Mills, patient can email him a photo. Patient was very firm that she cannot use MyChart. She is aware that would be our preference. Dr. Mills's email was provided. Patient was encouraged to contact her coumadin clinic in the morning to update them on the above- she said she would. She verbalized understanding to all of the above. * Telephone Encounter - Ezio-Ra Tangelarosita - 07/15/2024 4:33 PM EST Patient would like a return call to be triaged. She states that her left leg is bruised and turned purple, in her own words that she did not fall or hurt her leg. documented in this encounter Plan of Treatment Upcoming Encounters Date Type Department Care Team (Late st Contact Info) Description 10/31/2024 1:00 PM EDT Telemedicine [facility] at [facility] 240 [facility] [address] [place], [place] [address] Ronald Mills MD 240 [facility] Max [address] [place] [phone] documented as of this encounter Visit Diagnoses Not on filedocumented in this encounter Additional Health Concerns Assessment Noted Time PHQ-9 Depression Total Score: 2 11/07/19 19 2:06 PM EDT documented as of this encounter Care Teams Supervisor Plating And Point Assembly Relationship Specialty Start Date End Date Caitlyn Bowie MD [address] [address] PCP - General Internal Medicine 05/06/21 documented as of this encounter
--- OUTSIDE RECORDS SUMMARY | 2024-08-08 14:46 | XMS_ITS | Encounter Summary ---
Author Organization [facility] and [facility] Address [address] [place] [address] Care Team Providers Care Telesales Specialist Name Role Phone Caitlyn Bowie MD Primary Care Provider +1- [phone] Encounter Details Date Type Department Care Team (Late st Contact Info) Description 04/16/2018 Scanned Document [facility] Health Information Management [address] [place] [address] External, Provider Social History Tobacco Use Types [...] [facility] 240 [facility] Building [address] [place], [place] [phone] Ronald Mills MD 240 [facility] A1 [place] [address] documented as of this encounter Visit Diagnoses Not on filedocumented in this encounter Additional Health Concerns Infection Onset Date Last Indicated Resolved Time COVID-19 03/05/2022 03/05/2022 03/15/2022 7:18 PM EDT documented as of this encounter Care Teams Telesales Specialist Relationship Specialty Start Date End Date Caitlyn Bowie MD 3400 [facility] 1 [place] [address] PCP - General Internal Medicine 05/06/21 Henry Kelly MD Pulmonary Department 175 [facility], [address] [place] [address] Physician Pulmonary Disease 09/06/17 06/22/20 documented as of this encounter
--- OUTSIDE RECORDS SUMMARY | 2024-08-08 14:46 | XMS_ITS | Encounter Summary ---
Author Organization [facility] and [facility] Address [address] [place] [address] Care Team Providers Care Front End Software Developer Name Role Phone Caitlyn Bowie MD Primary Care Provider +1- [phone] Encounter Details Date Type Department Care Team (Late st Contact Info) Description 01/26/2018 Scanned Document [facility] Health Information Management [address] [place] [address] External, Provider Social History Tobacco Use Types [...] [facility] 240 [facility] Building [address] [place], [place] [phone] Ronald Mills MD 240 [facility] [address]1 [place] [address] documented as of this encounter Procedures Procedure Name Priority Date/Time Associated Diagnosis Comments XRAY RESULT SCAN Routine 01/26/2018 CT RESULT SCAN Routine 01/26/2018 documented in this encounter Results * Xray Result Scan (01/26/2018) us Provider External IMG SCAN REPORTS Final Result * CT Result Scan (01/26/2018) us Provider External IMG SCAN REPORTS Final Result documented in this encounter Visit Diagnoses Not on filedocumented in this encounter Additional Health Concerns Infection Onset Date Last Indicated Resolved Time COVID-19 03/05/2022 03/05/2022 03/15/2022 7:18 PM EDT documented as of this encounter Care Teams Front End Software Developer Relationship Specialty Start Date End Date Caitlyn Bowie MD 34[address] [facility] 1 [place] [address] PCP - General Internal Medicine 05/06/21 Henry Kelly MD Pulmonary Department 175 [facility], [address] [place] [address] Physician Pulmonary Disease 09/06/17 06/22/20 documented as of this encounter
--- OUTSIDE RECORDS SUMMARY | 2024-08-08 14:46 | XMS_ITS | Encounter Summary ---
Author Organization [facility] and [facility] Address [address] [place] [address] Care Team Providers Care Precision Inspector Name Role Phone Caitlyn Bowie MD Primary Care Provider +1- [phone] Encounter Details Date Type Department Care Team (Late st Contact Info) Description 04/03/2018 Scanned Document [facility] [address] [place] [id number] Provider, historical . Social History Tobacco Use Types Packs/Day Years [...] [facility] [address] [facility] [address] [place], [place] [phone] Ronald Mills MD 240 [facility] [address] [place] [address] documented as of this encounter Procedures Procedure Name Priority Date/Time Associated Diagnosis Comments BONE DENSITY RESULT SCAN Routine 05/10/2017 documented in this encounter Results * Bone Density Result Scan (05/10/2017) us Historical Provider IMG SCAN REPORTS Final Resul t documented in this encounter Visit Diagnoses Not on filedocumented in this encounter Additional Health Concerns Infection Onset Date Last Indicated Resolved Time COVID-19 03/05/2022 03/05/2022 03/15/2022 7:18 PM EDT documented as of this encounter Care Teams Precision Inspector Relationship Specialty Start Date End Date Caitlyn Bowie MD 3400 [facility] 1 [place] [address] PCP - General Internal Medicine 05/06/21 Henry Kelly MD Pulmonary Department 175 [facility], [address] [place] [address] Physician Pulmonary Disease 09/06/17 06/22/20 documented as of this encounter
--- OUTSIDE RECORDS SUMMARY | 2024-08-08 14:46 | XMS_ITS | Encounter Summary ---
Author Organization [facility] Address [address] [place] [address] Care Team Providers Care Brake Lining Maker Name Role Phone Sharon Vides Primary Care Provider Unava ilable Brennan Burnett MD Primary Care Provider Unavailab Hayden Montes MD Unavailable [phone] Pallavi Flood NP Unavailable +1- [phone] Caitlyn Bowie MD Primary Care Provider Unava ilable Reason for Visit * Reason Onset Date Comments TEST RESULTS 12/07/2018 XRAY OF LUNGS Encounter Details Date Type Department Care Team Description 12/07/2018 Telephone Pulmonology - [place] 175 [facility] [address] [place] [address] Andre Benites PA-C 299 [facility] [address] [place] [phone] TEST RESULTS (XRAY OF LUNGS) Social History Tobacco Use Types Packs/Day Years [...] Telephone Encounter - Nasima Sr M.A. - 12/11/2018 10:08 AM EDT Patient aware. * Telephone Encounter - Henry Kelly MD - 12/10/2018 5:28 PM EDT Yes called her to let her know her chest xray was ok. Please let her know * Telephone Encounter - Clau Iabrra M.A. - 12/10/2018 3:[address] Adrian. Did you try calling the pt with x-ray results? * Telephone Encounter - Val Luciano - 12/07/2018 4:28 PM EDT Patient calling into the office showing a missed call from our number Please contact patient at number listed under contact information regarding results * Telephone Encounter - Kayla iDor - 12/07/2018 3:43 PM EDT Inform patient: ANY URGENT OR ABNORMAL RESULTS WIILL RESULT IN A CALL BACK TO THE PATIENT JUD. Type of test: : Xray of lungs Date test was performed: 12/06/18 Where was the test performed: [address] Who ordered this test?: Jermain Benites Is the doctor here today?: NO Can the message wait until the doctor returns?: YES IF PATIENT'S PCP IS NOT IN INSTRUCT PATIENT THAT THEY WILL RECEIVE A CALL BACK WHEN THE PCP IS IN THE OFFICE NEXT. documented in this encounter Plan of Treatment Not on file documented as of this encounter Visit Diagnoses Not on filedocumented in this encounter Care Teams Brake Lining Maker Relationship Specialty Start Date End Date Sharon Vides PCP - General Internal Medicine 08/02/18 05/26/20 Brennan Burnett MD PCP - General Internal Medicine 05/27/20 12/07/21 Caitlyn Bowie MD [address] [place] [address] PCP - General Internal Medicine 12/08/21 Hayden Shah MD [address] [place] [address] Specialist Cardiovascular Disease 09/01/20 Pallavi Flood NP [address] [place] [address] Cardiology 09/01/20 documented as of this encounter
--- OUTSIDE RECORDS SUMMARY | 2024-08-08 14:46 | XMS_ITS | Clinical Summary ---
Author Organization [facility] Address [address] [place] [address] Care Team Providers Care Machining Supervisor Name Role Phone Caitlyn Bowie MD Primary Care Provider +1- [phone] Allergies Active Allergy Reactions Criticality Noted Date Comments Moxifloxacin Unknown/Patient and Family Unable to Define Medium 01/04/2022 Avocado Anaphylaxis,Unknown/ P atient and Family Unable to Define High 04/15/2013 Other reaction(s): Resp Distress Clarithromycin Unknown/Patient and Family Unable to Define Medium 01/04/2022 Buspirone Anaphylaxis High 01/04/2022 Ciprofloxacin Anaphylaxis High 01/04/2022 Colistin Unknown/Patient and Family Unable to Define Medium 12/18/2021 Diatrizoate Meglumine & Sodium Swelling High 09/23/2015 Throat tightness Throat tightness Erythromycin Unknown/Patient and Family Unable to Define Medium 02/04/2016 Metronidazole Unknown/Patient and Family Unable to Define Medium 01/04/2022 Diatrizoate Unknown/Patient and Family Unable to Define Medium 01/04/2022 Insect Extract Unknown/Patient and Family Unable to Define Medium 12/18/2021 Iodinated Contrast Media Unknown/Patient and Family Unable to Define,Itching,Other (See Comments),Rash/Dermat itis,Shortness Of Breath High 05/09/2008 Bronchospasm or Wheezing Ipratropium [place] Unknown/Patient and Family Unable to Define Medium 12/18/2021 Molds & Smuts Unknown/Patient and Family Unable to Define High 02/18/2013 Other reaction(s): Resp Distress Procaine Unknown/Patient and Family Unable to Define Medium 12/18/2021 Shrimp Unknown/Patient and Family Unable to Define Medium 01/04/2022 Sulfa Antibiotics Unknown/Patient and Family Unable to Define Medium 02/04/2016 Diclofenac Unknown/Patient and Family Unable to Define Medium 12/18/2021 Azithromycin Unknown/Patient and Family Unable to Define Medium 01/04/2022 Medications Medication Sig Dispensed Refills Start Date End Date Status fluticasone-salmeter ol (ADVAIR) 100-50 mcg/inh diskus inhaler 02/04/2016 Active Ascorbic Acid (vitamin C) 1000 MG tablet Take 1 tablet (1,000 mg total) by mouth. Active Probiotic Product (PROBIOTIC BLEND PO) Take 1 capsule by mouth daily. Active B Hgbmcjm-A-Bcjvv Acid (STRESS 500 B-COMPLEX PO) Take 1 tablet by mouth. 09/24/2021 Active Elderberry 500 MG Cap Take by mouth. Active EPINEPHrine 0.3 mg/0.3 mL IJ auto-injection Inject as directed See Admin Instructions. Active vitamin B-12 (CYANOCOBALAMIN) 100 MCG tablet Take by mouth. Active ferrous sulfate 220 mg/5 mL solution Take by mouth. Acti ve warfarin (COUMADIN) 1 MG tablet 1 tablet Active umeclidinium-vilante rol (umeclidinium-vilant jc) 62.5-25 MCG/INH inhaler Incruse Ellipta 62.5 mcg/actuation powder for inhalation Active Cetirizine HCl (ZyrTEC Allergy) 10 MG Cap 02/04/2016 Active warfarin, COUMADIN, DOSED by PRESCRIBER (eMAR reminder) warfarin Active diazepam (VALIUM) 10 MG tablet 02/04/2016 Active traZODone (DESYREL) 50 MG tablet 02/04/2016 Active levothyroxine (SYNTHROID, LEVOTHROID) 100 MCG tablet 02/04/2016 Active torsemide (DEMADEX) 10 MG tablet 08/31/2017 Active montelukast (SINGULAIR) 10 MG tablet 02/04/2016 Active rosuvastatin (CRESTOR) 10 MG tablet Take by mouth. Active guaiFENesin (guaiFENesin) 100 mg/5 mL Solution liquid Active polyethyl glycol-propyl glycol (Systane) 0.4-0.3 % Solution Apply 1 drop to eye. 11/06/2021 Acti ve Cetirizine HCl (ZyrTEC Allergy) 10 MG Cap Zyrtec Active Ergocalciferol (Vitamin D2) 10 MCG (400 UNIT) Tab 02/04/2016 Active B Complex Vitamins (VITAMIN B COMPLEX 100 IJ) Take by mouth. Active meclizine (ANTIVERT) 6.25 MG tablet 02/04/2016 Active predniSONE (DELTASONE) 5 MG tablet Take 1 tablet (5 mg total) by mouth. 07/03/2021 Active oxymetazoline (AFRIN) 0.05 % nasal spray into each nostril. Active guaiFENesin (ROBITUSSIN) 100 mg/5 mL Solution liquid Take by mouth. Active METOPROLOL & DIET MANAGE PROD PO 02/04/2016 Active Carbonyl Iron (Iron Chews Pediatric) 15 MG Chew Tab Chew 15 mg. 11/18/2021 Active Family History Medical History Relation Name Comments Lung cancer Mother Relation Name Status Comments Brother Father Mother Sister Social History Tobacco Use Types Packs/Day Years Used Date Smoking Tobacco: Never Alcohol Use Standard Drinks/Week Comments Never 0 (1 standard drink = 0.6 oz pur e alcohol) Sex and Gender Information Value Date Recorded Sex Assigned at Not on file Gender Identity Not on file Sexual Orientation Not on file Last Filed Vital Signs Vital Sign Reading Time Taken Comments Blood Pressure 96/57 03/20/2023 1:00 PM EDT Pulse 83 03/20/2023 1:00 PM EDT Temperature 36.8 ??C (98.2 ??F) 03/20/2023 1:00 PM ED T Respiratory Rate - - Oxygen Saturation 96% 03/20/2023 1:00 PM EDT Inhaled Oxygen Concentration - - Weight 59.9 kg (132 lb) 03/20/2023 1:00 PM EDT Height - - Body Mass Index - - Plan of Treatment Health Maintenance Due Date Last Done Comments DTaP/Tdap/Td Vaccines (1 - Tdap) 1962 Pneumococcal Vaccines 50+ (1 of 1 - PCV) 1993 Zoster (Shingles) Vaccine (1 of 2) 1993 DXA Bone Density (Females,Ages 65 and older) 2008 RSV Vaccine 60 years and older and Patients (1 - 1-dose 75+ series) 2018 Influenza Vaccine 02/08/2024 05/13/2022, , 05/15/2021, Additional history exists COVID-19 Vaccine (3 - 2023- season) 2024 09/03/2020, 08/06/2020 Hepatitis B Vaccines Aged Out No long er eligible based on patient's age to complete this topic Care Teams Machining Supervisor Relationship Specialty Start Date End Date Caitlyn Bowie MD [facility]0 [place] [address] PCP - General Internal Medicine 03/20/23
--- OUTSIDE RECORDS SUMMARY | 2024-08-08 14:46 | XMS_ITS | Encounter Summary ---
Author Organization [facility] Address [address] [place] [address] Care Team Providers Care Keyboard Teacher Name Role Phone Caitlyn Bowie MD Primary Care Provider +1- [phone] Encounter Details Date Type Department Care Team (Late st Contact Info) Description 03/14/2018 Scanned Document [facility] Health Information Management [address] [place] [address] External, Provider Social History Tobacco Use Types [...] [facility] 240 [facility] Building [address] [place], [place] [phone] Ronald Mills MD [address] [place] [address] [address] [place] [address] documented as of this encounter Procedures Procedure Name Priority Date/Time Associated Diagnosis Comments GI SCAN Routine 03/14/2018 PATHOLOGY/CYTOLOGY SCAN Routine 03/14/2018 documented in this encounter Results * GI Scan (03/14/2018) us Provider External GI PROCEDURE ORDERABLES Final Result * Pathology/Cytology Scan (03/14/2018) us Provider External PATHOLOGY/CYTOLOGY ORDERABLES Final Result documented in this encounter Visit Diagnoses Not on filedocumented in this encounter Additional Health Concerns Infection Onset Date Last Indicated Resolved Time COVID-19 03/05/2022 03/05/2022 03/15/2022 7:18 PM EDT documented as of this encounter Care Teams Keyboard Teacher Relationship Specialty Start Date End Date Caitlyn Bowie MD 34[address] [facility] 1 [place] [address] PCP - General Internal Medicine 05/06/21 Henry Kelly MD Pulmonary Department 175 [facility], [address] [place] [address] Physician Pulmonary Disease 09/06/17 06/22/20 documented as of this encounter
--- OUTSIDE RECORDS SUMMARY | 2024-08-08 14:46 | XMS_ITS | Encounter Summary ---
Author Organization [facility] Address [address] [place] [address] Care Team Providers Care Flocculator Operator Name Role Phone Caitlyn Bowie MD Primary Care Provider +1- [phone] Encounter Details Date Type Department Care Team (Late st Contact Info) Description 11/19/2021 Scanned Document Cardiovascular Medicine at [address] [place] [address] Norma Renee MD [address] [place] [address] Social History Tobacco Use Types Packs/Day [...] 1:00 PM EDT Telemedicine Cancer Center at [address] [place] [address] Ronald Mills MD 240 [facility] A[address] [place] [address] documented as of this encounter Visit Diagnoses Not on filedocumented in this encounter Additional Health Concerns Infection Onset Date Last Indicated Resolved Time COVID-19 03/05/2022 03/05/2022 03/15/2022 7:18 PM EDT Assessment Noted Time PHQ-9 Depression Total Score: 2 11/07/19 19 2:06 PM EDT documented as of this encounter Care Teams Flocculator Operator Relationship Specialty Start Date End Date Caitlyn Bowie MD [address] [address] PCP - General Internal Medicine 05/06/21 documented as of this encounter
--- OUTSIDE RECORDS SUMMARY | 2024-08-08 14:46 | XMS_ITS | Encounter Summary ---
Author Organization [facility] and [facility] Address [address] [place] [address] Care Team Providers Care Crusher Plant Operator Name Role Phone Caitlyn Bowie MD Primary Care Provider +1- [phone] Reason for Visit * Reason Comments Triage Encounter Details Date Type Department Care Team (Late st Contact Info) Description 10/18/2021 Telephone [facility] at [address] - [address] [phone] Ronald Mills MD [address] [place] [address] Triage Social History Tobacco Use Types [...] Telephone Encounter - Taya Nuno RN - 10/20/2021 11:52 AM EDT Lab orders mailed to pt, pt notified. * Telephone Encounter - Nasima Wang - 10/18/2021 1:52 PM EDT Pt of Dr. Mills Looking to speak with Taya Rahman RE: Labs and test we ordered Looking for update on the status documented in this encounter Plan of Treatment Upcoming Encounters Date Type Department Care Team (Late st Contact Info) Description 10/31/2024 1:00 PM EDT Telemedicine [facility] at [facility] 240 [facility] Building [address] [place], [place] [address] Ronald Mills MD 240 [facility] [address] [place] [address] documented as of this encounter Visit Diagnoses Not on filedocumented in this encounter Additional Health Concerns Infection Onset Date Last Indicated Resolved Time COVID-19 03/05/2022 03/05/2022 03/15/2022 7:18 PM EDT Assessment Noted Time PHQ-9 Depression Total Score: 2 11/07/19 19 2:06 PM EDT documented as of this encounter Care Teams Crusher Plant Operator Relationship Specialty Start Date End Date Caitlyn Bowie MD [address] [address] PCP - General Internal Medicine 05/06/21 documented as of this encounter
--- OUTSIDE RECORDS SUMMARY | 2024-08-08 14:47 | XMS_ITS | Encounter Summary ---
Author Organization [facility] and [facility] Address [address] [place] [address] Care Team Providers Care Regulatory Internship Name Role Phone Caitlyn Bowie MD Primary Care Provider +1- [phone] Encounter Details Date Type Department Care Team (Late st Contact Info) Description 04/24/2021 Scanned Document INTERFACE DEFAULT [address] [place] [address] System, Provider Not In Social History Tobacco [...] at [facility] 240 [facility] Building [address] [place], [place] [phone] Ronald Mills MD [address] [place] [address] [address] [place] [address] documented as of this encounter Procedures Procedure Name Priority Date/Time Associated Diagnosis Comments CT INITIAL LUNG CANCER SCREENING 04/24/2021 12:[address] RESULT SCAN 04/24/2021 12:00 AM EDT CARDIAC EKG RESULT SCAN 04/24/20 12:00 AM EDT MICROBIOLOGY SCAN 04/24/2021 12: 00 AM EDT documented in this encounter Results * CARDIAC EKG RESULT SCAN (04/24/2021 12:00 AM EDT) 04/24/2021 us Provider Not In System CV CARDIAC REPORT (CVR) E dited Result - Final * CT RESULT SCAN (04/24/2021 12:00 AM EDT) 04/24/2021 us Provider Not In System IMG SCAN REPORTS Edited R esult - Final * MICROBIOLOGY SCAN (04/24/2021 12:00 AM EDT) 04/24/2021 us Provider Not In System MICROBIOLOGY - GENERAL OR DERABLES Final Result * CT INITIAL LUNG CANCER SCREENING (04/24/2021 12:00 AM EDT) Anatomical Region Laterality Modality Chest, Lung Computed Tomogra phy 04/24/2021 us Provider Not In System IMG CT ORDERABLES Final R esult documented in this encounter Visit Diagnoses Not on filedocumented in this encounter Additional Health Concerns Infection Onset Date Last Indicated Resolved Time COVID-19 03/05/2022 03/05/2022 03/15/2022 7:18 PM EDT Assessment Noted Time PHQ-9 Depression Total Score: 2 11/07/19 19 2:06 PM EDT documented as of this encounter Care Teams Regulatory Internship Relationship Specialty Start Date End Date Caitlyn Bowie MD [address] [address] PCP - General Internal Medicine 05/06/21 documented as of this encounter
--- OUTSIDE RECORDS SUMMARY | 2024-08-08 14:47 | XMS_ITS | Encounter Summary ---
Author Organization [facility] and [facility] Address [address] [place] [address] Care Team Providers Care Security Management Specialist Name Role Phone Caitlyn Bowie MD Primary Care Provider +1- [phone] Encounter Details Date Type Department Care Team (Late st Contact Info) Description 06/07/2021 Scanned Document Onco-Oncology Program at [address] [place] [address] Norma Renee MD [address] [place] [address] 2 [place] [address] Social History Tobacco Use Types [...] 1:00 PM EDT Telemedicine Cancer Center at [address] [place], [place] [phone] Ronald Mills MD 240 [facility] [address] [place] [address] documented as of this encounter Visit Diagnoses Not on filedocumented in this encounter Additional Health Concerns Infection Onset Date Last Indicated Resolved Time COVID-19 03/05/2022 03/05/2022 03/15/2022 7:18 PM EDT Assessment Noted Time PHQ-9 Depression Total Score: 2 11/07/19 19 2:06 PM EDT documented as of this encounter Care Teams Security Management Specialist Relationship Specialty Start Date End Date Caitlyn Bowie MD [address] [address] PCP - General Internal Medicine 05/06/21 documented as of this encounter
--- OUTSIDE RECORDS SUMMARY | 2024-08-08 14:47 | XMS_ITS | Encounter Summary ---
Author Organization [facility] and [facility] Address [address] [place] [address] Care Team Providers Care Banquet Attendant Name Role Phone Caitlyn Bowie MD Primary Care Provider +1- [phone] Encounter Details Date Type Department Care Team (Late st Contact Info) Description 09/23/2021 Scanned Document INTERFACE DEFAULT [address] [place] [address] System, Provider Not In Social History Tobacco [...] [facility] Center at [facility] 240 [facility] Building [address] [place], [place] [phone] Ronald Mills MD [address] [place] [address] [address] [place] [address] documented as of this encounter Procedures Procedure Name Priority Date/Time Associated Diagnosis Comments XRAY RESULT SCAN 09/23/2021 12:00 AM EDT MRI RESULT SCAN 09/23/2021 12:00 AM EDT documented in this encounter Results * XRAY RESULT SCAN (09/23/2021 12:00 AM EDT) 09/23/2021 us Provider Not In System IMG SCAN REPORTS Final Re sult * MRI RESULT SCAN (09/23/2021 12:00 AM EDT) 09/23/2021 us Provider Not In System IMG SCAN REPORTS Final Re sult documented in this encounter Visit Diagnoses Not on filedocumented in this encounter Additional Health Concerns Infection Onset Date Last Indicated Resolved Time COVID-19 03/05/2022 03/05/2022 03/15/2022 7:18 PM EDT Assessment Noted Time PHQ-9 Depression Total Score: 2 11/07/19 19 2:06 PM EDT documented as of this encounter Care Teams Banquet Attendant Relationship Specialty Start Date End Date Caitlyn Bowie MD [address] [address] PCP - General Internal Medicine 05/06/21 documented as of this encounter
--- OUTSIDE RECORDS SUMMARY | 2024-08-08 14:47 | XMS_ITS | Encounter Summary ---
Author Organization [facility] and [facility] Address [address] [place] [address] Care Team Providers Care Exposure Machine Operator Name Role Phone Caitlyn Bowie MD Primary Care Provider +1- [phone] Encounter Details Date Type Department Care Team (Late st Contact Info) Description 10/15/2018 Scanned Document [facility] Health Information Management [address] [place] [address] External, Provider Social History Tobacco Use Types [...] 1:00 PM EDT Telemedicine [facility] at [facility] 240 [facility] Building [address] [place], [place] [phone] Ronald Mills MD 240 [facility] [address] [place] [address] documented as of this encounter Visit Diagnoses Not on filedocumented in this encounter Additional Health Concerns Infection Onset Date Last Indicated Resolved Time COVID-19 03/05/2022 03/05/2022 03/15/2022 7:18 PM EDT documented as of this encounter Care Teams Exposure Machine Operator Relationship Specialty Start Date End Date Caitlyn Bowie MD 3400 [facility] 1 [place] [address] PCP - General Internal Medicine 05/06/21 Henry Kelly MD Pulmonary Department 175 [facility], [address] [place] [address] Physician Pulmonary Disease 09/06/17 06/22/20 documented as of this encounter
--- OUTSIDE RECORDS SUMMARY | 2024-08-08 14:47 | XMS_ITS | Encounter Summary ---
Author Organization [facility] Address [address] [place] [address] Care Team Providers Care Bus Operator Name Role Phone Caitlyn Bowie MD Primary Care Provider +1- [phone] Encounter Details Date Type Department Care Team (Late st Contact Info) Description 07/28/2018 Scanned Document [facility] Health Information Management [address] [place] [address] External, Provider Social History Tobacco Use Types [...] [facility] 240 [facility] Building [address] [place], [place] [phone] Ronald Mills MD 240 [facility] [address] [place] [address] documented as of this encounter Procedures Procedure Name Priority Date/Time Associated Diagnosis Comments CT RESULT SCAN Routine 07/28/2018 documented in this encounter Results * CT Result Scan (07/28/2018) us Provider External IMG SCAN REPORTS Final Result documented in this encounter Visit Diagnoses Not on filedocumented in this encounter Additional Health Concerns Infection Onset Date Last Indicated Resolved Time COVID-19 03/05/2022 03/05/2022 03/15/2022 7:18 PM EDT documented as of this encounter Care Teams Bus Operator Relationship Specialty Start Date End Date Caitlyn Bowie MD [facility]0 [facility] 1 [place] [address] PCP - General Internal Medicine 05/06/21 Henry Kelly MD Pulmonary Department 175 [facility], [address] [place] [address] Physician Pulmonary Disease 09/06/17 06/22/20 documented as of this encounter
--- OUTSIDE RECORDS SUMMARY | 2024-08-08 14:47 | XMS_ITS | Encounter Summary ---
Author Organization [facility] and [facility] Address [address] [place] [address] Care Team Providers Care Yarn Packer Name Role Phone Caitlyn Bowie MD Primary Care Provider +1- [phone] Encounter Details Date Type Department Care Team (Late st Contact Info) Description 05/27/2021 Telephone [facility] at [address] [address] Ronald Mills MD [address] [place] [address] Social History Tobacco Use Types Packs/Day [...] Telephone Encounter - Taya Nuno RN - 05/27/2021 3:[address] Mills notified, will call. * Telephone Encounter - Nasima Wang - 05/27/2021 10:24 AM EST Hermila from Dr. Kelly office called Stated Dr. Kelly called looking to speak with Dr. Mills RE: Pt Care ( no other information was provided Hermila said) Pt isn't at there office now documented in this encounter Plan of Treatment Upcoming Encounters Date Type Department Care Team (Late st Contact Info) Description 10/31/2024 1:00 PM EDT Telemedicine Cancer Center at [facility] 240 [facility] [address] [place], [place] [address] Ronald Mills MD 240 [facility] [address] [place] [address] documented as of this encounter Visit Diagnoses Not on filedocumented in this encounter Additional Health Concerns Infection Onset Date Last Indicated Resolved Time COVID-19 03/05/2022 03/05/2022 03/15/2022 7:18 PM EDT Assessment Noted Time PHQ-9 Depression Total Score: 2 11/07/19 19 2:06 PM EDT documented as of this encounter Care Teams Yarn Packer Relationship Specialty Start Date End Date Caitlyn Bowie MD [address] [address] PCP - General Internal Medicine 05/06/21 documented as of this encounter
--- OUTSIDE RECORDS SUMMARY | 2024-08-08 14:47 | XMS_ITS | Encounter Summary ---
Author Organization [facility] and [facility] Address [address] [place] [address] Care Team Providers Care Mechanical Drawing Teacher Name Role Phone Caitlyn Bowie MD Primary Care Provider +1- [phone] Encounter Details Date Type Department Care Team (Late st Contact Info) Description 05/05/2021 Scanned Document INTERFACE DEFAULT [address] [place] [address] System, Provider Not In Social History Tobacco [...] [facility] 240 [facility] [address] [place] [address] Ronald Mills MD [address] [place] [address] [address] [place] [address] documented as of this encounter Visit Diagnoses Not on filedocumented in this encounter Additional Health Concerns Infection Onset Date Last Indicated Resolved Time COVID-19 03/05/2022 03/05/2022 03/15/2022 7:18 PM EDT Assessment Noted Time PHQ-9 Depression Total Score: 2 11/07/19 19 2:06 PM EDT documented as of this encounter Care Teams Mechanical Drawing Teacher Relationship Specialty Start Date End Date Caitlyn Bowie MD [address] [address] PCP - General Internal Medicine 05/06/21 documented as of this encounter
--- OUTSIDE RECORDS SUMMARY | 2024-08-08 14:47 | XMS_ITS | Encounter Summary ---
Author Organization [facility] Address [address] [place] [address] Care Team Providers Care Dermatologist Name Role Phone Caitlyn Bowie MD Primary Care Provider +1- [phone] Encounter Details Date Type Department Care Team (Late st Contact Info) Description 06/08/2021 Scanned Document INTERFACE DEFAULT [address] [place] [address] System, Provider Not In Social History Tobacco [...] [facility] 240 [facility] Building [address] [place], [place] [phone] Ronald Mills MD [address] [place] [address] [address] [place] [address] documented as of this encounter Procedures Procedure Name Priority Date/Time Associated Diagnosis Comments LAB SCAN 06/08/2021 12:00 AM EST LAB SCAN 06/08/2021 12:00 AM EST LAB SCAN 06/08/2021 12:00 AM EST documented in this encounter Results * LAB SCAN (06/08/2021 12:00 AM EST) 06/08/2021 us Provider Not In System LAB BLOOD ORDERABLES Carmina l Result * LAB SCAN (06/08/2021 12:00 AM EST) 06/08/2021 us Provider Not In System LAB BLOOD ORDERABLES Carmina l Result * LAB SCAN (06/08/2021 12:00 AM EST) 06/08/2021 us Provider Not In System LAB BLOOD ORDERABLES Carmina l Result documented in this encounter Visit Diagnoses Not on filedocumented in this encounter Additional Health Concerns Infection Onset Date Last Indicated Resolved Time COVID-19 03/05/2022 03/05/2022 03/15/2022 7:18 PM EDT Assessment Noted Time PHQ-9 Depression Total Score: 2 11/07/19 19 2:06 PM EDT documented as of this encounter Care Teams Dermatologist Relationship Specialty Start Date End Date Caitlyn Bowie MD [address] [place] [phone] PCP - General Internal Medicine 05/06/21 documented as of this encounter
--- OUTSIDE RECORDS SUMMARY | 2024-08-08 14:47 | XMS_ITS | Encounter Summary ---
Author Organization [facility] and [facility] Address [address] [place] [address] Care Team Providers Care Dean Of Students Name Role Phone Caitlyn Bowie MD Primary Care Provider +1- [phone] Encounter Details Date Type Department Care Team (Late st Contact Info) Description 07/26/2018 Scanned Document [facility] Health Information Management [address] [place] [address] External, Provider Social History Tobacco Use Types [...] [facility] 240 [facility] Building [address] [place], [place] [phone] Ronald Mills MD 240 [facility] A1 [place] [address] documented as of this encounter Procedures Procedure Name Priority Date/Time Associated Diagnosis Comments XRAY RESULT SCAN Routine 07/26/2018 MRI RESULT SCAN Routine 07/26/2018 documented in this encounter Results * MRI Result Scan (07/26/2018) us Provider External IMG SCAN REPORTS Final Result * Xray Result Scan (07/26/2018) us Provider External IMG SCAN REPORTS Final Result documented in this encounter Visit Diagnoses Not on filedocumented in this encounter Additional Health Concerns Infection Onset Date Last Indicated Resolved Time COVID-19 03/05/2022 03/05/2022 03/15/2022 7:18 PM EDT documented as of this encounter Care Teams Dean Of Students Relationship Specialty Start Date End Date Caitlyn Bowie MD 3400 [facility] 1 [place] [address] PCP - General Internal Medicine 05/06/21 Henry Kelly MD Pulmonary Department 175 [facility], [address] [place] [address] Physician Pulmonary Disease 09/06/17 06/22/20 documented as of this encounter
--- OUTSIDE RECORDS SUMMARY | 2024-08-08 14:47 | XMS_ITS | Encounter Summary ---
Author Organization [facility] and [facility] Address [address] [place] [address] Care Team Providers Care Respiratory Clinician Name Role Phone Caitlyn Bowie MD Primary Care Provider +1- [phone] Encounter Details Date Type Department Care Team (Late st Contact Info) Description 04/27/2021 Scanned Document INTERFACE DEFAULT [address] [place] [address] System, Provider Not In Social History Tobacco [...] at [facility] 240 [facility] Building [address] [place] [address] Ronald Mills MD [address] [place] [address] [address] [place] [address] documented as of this encounter Procedures Procedure Name Priority Date/Time Associated Diagnosis Comments CARDIAC MISC.?? RESULT SCAN 04/27/2021 12:00 AM EDT CARDIAC EKG RESULT SCAN 04/27/2021 12:00 AM EDT LAB SCAN 04/27/2021 12:00 AM EDT documented in this encounter Results * CARDIAC MISC.?? RESULT SCAN (04/27/2021 12:00 AM EDT) 04/27/2021 us Provider Not In System CV CARDIAC REPORT (CVR) F inal Result * CARDIAC EKG RESULT SCAN (04/27/2021 12:00 AM EDT) 04/27/2021 us Provider Not In System CV CARDIAC REPORT (CVR) F inal Result * LAB SCAN (04/27/2021 12:00 AM EDT) 04/27/2021 us Provider Not In System LAB BLOOD ORDERABLES Carmina l Result documented in this encounter Visit Diagnoses Not on filedocumented in this encounter Additional Health Concerns Infection Onset Date Last Indicated Resolved Time COVID-19 03/05/2022 03/05/2022 03/15/2022 7:18 PM EDT Assessment Noted Time PHQ-9 Depression Total Score: 2 11/07/19 19 2:06 PM EDT documented as of this encounter Care Teams Respiratory Clinician Relationship Specialty Start Date End Date Caitlyn Bowie MD [address] [address] PCP - General Internal Medicine 05/06/21 documented as of this encounter
--- OUTSIDE RECORDS SUMMARY | 2024-08-08 14:47 | XMS_ITS | Encounter Summary ---
Author Organization [facility] and [facility] Address [address] [place] [address] Care Team Providers Care Corrections Cadet Name Role Phone Caitlyn Bowie MD Primary Care Provider +1- [phone] Encounter Details Date Type Department Care Team (Late st Contact Info) Description 10/08/2021 Scanned Document INTERFACE DEFAULT [address] [place] [address] System, Provider Not In Social History Tobacco [...] [facility] 240 [facility] Building [address] [place], [place] [phone] Ronald Mills MD [address] [place] [address] [address] [place] [address] documented as of this encounter Procedures Procedure Name Priority Date/Time Associated Diagnosis Comments LAB SCAN 10/08/2021 12:00 AM EDT documented in this encounter Results * LAB SCAN (10/08/2021 12:00 AM EDT) 10/08/2021 us Provider Not In System LAB BLOOD ORDERABLES Carmina l Result documented in this encounter Visit Diagnoses Not on filedocumented in this encounter Additional Health Concerns Infection Onset Date Last Indicated Resolved Time COVID-19 03/05/2022 03/05/2022 03/15/2022 7:18 PM EDT Assessment Noted Time PHQ-9 Depression Total Score: 2 11/07/19 19 2:06 PM EDT documented as of this encounter Care Teams Corrections Cadet Relationship Specialty Start Date End Date Caitlyn Bowie MD [address] [address] PCP - General Internal Medicine 05/06/21 documented as of this encounter
--- OUTSIDE RECORDS SUMMARY | 2024-08-08 14:47 | XMS_ITS | Encounter Summary ---
Author Organization [facility] and [facility] Address [address] [place] [address] Care Team Providers Care White Mixing Operator Name Role Phone Caitlyn Bowie MD Primary Care Provider +1- [phone] Encounter Details Date Type Department Care Team (Late st Contact Info) Description 08/07/2018 Scanned Document [facility] Health Information Management [address] [place] [address] External, Provider Social History Tobacco Use Types [...] [facility] 240 [facility] Building [address] [place], [place] [phone] Ronald Mills MD 240 [facility] [address] [place] [address] documented as of this encounter Visit Diagnoses Not on filedocumented in this encounter Additional Health Concerns Infection Onset Date Last Indicated Resolved Time COVID-19 03/05/2022 03/05/2022 03/15/2022 7:18 PM EDT documented as of this encounter Care Teams White Mixing Operator Relationship Specialty Start Date End Date Caitlyn Bowie MD 3400 [facility] 1 [place] [address] PCP - General Internal Medicine 05/06/21 Henry Kelly MD Pulmonary Department 175 [facility], [address] [place] [address] Physician Pulmonary Disease 09/06/17 06/22/20 documented as of this encounter
--- OUTSIDE RECORDS SUMMARY | 2024-08-08 14:47 | XMS_ITS | Encounter Summary ---
Author Organization [facility] Address [address] [place] [address] Care Team Providers Care Coupler Name Role Phone Caitlyn Bowie MD Primary Care Provider +1- [phone] Reason for Visit * Reason Comments Advice Only Encounter Details Date Type Department Care Team ([facility] st Contact Info) Description 06/01/2021 Telephone [facility] at [address] [phone] Ronald Mills MD [address] [place] [address] Advice Only Social History Tobacco Use Types Packs/Day Years [...] Telephone Encounter - Taya Nuno RN - 06/01/2021 3:[address] Mills notified. * Telephone Encounter - Chely Aparicio - 06/01/2021 2:05 PM EST Pt called requesting to speak to Dr Mills regarding IVIG that Dr Kelly spoke to him about. She also added that she's called before and sent Touchbase messages but hasn't received a reply,[phone]. documented in this encounter Plan of Treatment Upcoming Encounters Date Type Department Care Team (Late st Contact Info) Description 10/31/2024 1:00 PM EDT Telemedicine Cancer Center at [facility] 240 [facility] Building [address] [place], [place] [phone] Ronald Mills MD 240 [facility] [address] [place] [phone] documented as of this encounter Visit Diagnoses Not on filedocumented in this encounter Additional Health Concerns Infection Onset Date Last Indicated Resolved Time COVID-19 03/05/2022 03/05/2022 03/15/2022 7:18 PM EDT Assessment Noted Time PHQ-9 Depression Total Score: 2 11/07/19 19 2:06 PM EDT documented as of this encounter Care Teams Coupler Relationship Specialty Start Date End Date Caitlyn Bowie MD 3400 [facility] 1 [place] [address] PCP - General Internal Medicine 05/06/21 documented as of this encounter
--- OUTSIDE RECORDS SUMMARY | 2024-08-08 14:47 | XMS_ITS | Encounter Summary ---
Author Organization [facility] and [facility] Address [address] [place] [address] Care Team Providers Care Fitness/Wellness Director Name Role Phone Caitlyn Bowie MD Primary Care Provider +1- [phone] Encounter Details Date Type Department Care Team (Late st Contact Info) Description 05/17/2021 Scanned Document Cancer Center at [address] [address] External, Provider Social History Tobacco Use Types [...] Cancer Center at [facility] 240 [facility] Building [address] [place], [place] [phone] Ronald Mills MD [address] [place] [address] [address] [place] [address] documented as of this encounter Procedures Procedure Name Priority Date/Time Associated Diagnosis Comments LAB SCAN Routine 05/17/2021 documented in this encounter Results * Lab Scan (05/17/2021) us Provider External LAB BLOOD ORDERABLES Final Res ult documented in this encounter Visit Diagnoses Not on filedocumented in this encounter Additional Health Concerns Infection Onset Date Last Indicated Resolved Time COVID-19 03/05/2022 03/05/2022 03/15/2022 7:18 PM EDT Assessment Noted Time PHQ-9 Depression Total Score: 2 11/07/19 19 2:06 PM EDT documented as of this encounter Care Teams Fitness/Wellness Director Relationship Specialty Start Date End Date Caitlyn Bowie MD [address] [address] PCP - General Internal Medicine 05/06/21 documented as of this encounter
--- OUTSIDE RECORDS SUMMARY | 2024-08-08 14:47 | XMS_ITS | Encounter Summary ---
Author Organization [facility] and [facility] Address [address] [place] [address] Care Team Providers Care Child Care Giver Name Role Phone Caitlyn Bowie MD Primary Care Provider +1- [phone] Reason for Visit * Reason Comments FYI Encounter Details Date Type Department Care Team (Late st Contact Info) Description 05/24/2021 Telephone [facility] at [facility] at [address] [place] [address] [address] [place], [place] [phone] Solo Henry MD [address] [place] [phone] FYI Social History Tobacco Use Types Packs/Day Years [...] encounter Miscellaneous Notes * Telephone Encounter - Piper Pool - 05/24/2021 11:43 AM EST Pt called stating she has been in hospital many times recently, had heart attack. Would like to seeor speak to Dr Solo Henry Provider is Dr Solo Henry documented in this encounter Plan of Treatment Upcoming Encounters Date Type Department Care Team (Late st Contact Info) Description 10/31/2024 1:00 PM EDT Telemedicine Cancer Center at [facility] 240 [facility] Building [address] [place] [address] Ronald Mills MD 240 [facility] [address] [place] [address] documented as of this encounter Visit Diagnoses Not on filedocumented in this encounter Additional Health Concerns Infection Onset Date Last Indicated Resolved Time COVID-19 03/05/2022 03/05/2022 03/15/2022 7:18 PM EDT Assessment Noted Time PHQ-9 Depression Total Score: 2 11/07/19 19 2:06 PM EDT documented as of this encounter Care Teams Child Care Giver Relationship Specialty Start Date End Date Caitlyn Bowie MD 3400 [facility] 1 [place] [address] PCP - General Internal Medicine 05/06/21 documented as of this encounter
--- OUTSIDE RECORDS SUMMARY | 2024-08-08 14:47 | XMS_ITS | Encounter Summary ---
Author Organization [facility] and [facility] Address 20 [place] [address] Care Team Providers Care Circus Rider Name Role Phone Caitlyn Bowie MD Primary Care Provider +1- [phone] Encounter Details Date Type Department Care Team (Late st Contact Info) Description 06/07/2021 Scanned Document Cancer Center at [address] [address] External, Provider Social History Tobacco Use Types [...] [facility] 240 [facility] Building [address] [place], [place] [phone] Ronald Mills MD [address] [place] [address] [address]1 [place] [address] documented as of this encounter Visit Diagnoses Not on filedocumented in this encounter Additional Health Concerns Infection Onset Date Last Indicated Resolved Time COVID-19 03/05/2022 03/05/2022 03/15/2022 7:18 PM EDT Assessment Noted Time PHQ-9 Depression Total Score: 2 11/07/19 19 2:06 PM EDT documented as of this encounter Care Teams Circus Rider Relationship Specialty Start Date End Date Caitlyn Bowie MD [address] [address] PCP - General Internal Medicine 05/06/21 documented as of this encounter
--- OUTSIDE RECORDS SUMMARY | 2024-08-08 14:47 | XMS_ITS | Encounter Summary ---
Author Organization [facility] and [facility] Address [address] [place] [address] Care Team Providers Care Radio Intelligence Operator Name Role Phone Caitlyn Bowie MD Primary Care Provider +1- [phone] Encounter Details Date Type Department Care Team (Late st Contact Info) Description 04/29/2021 Scanned Document INTERFACE DEFAULT [address] [place] [address] System, Provider Not In Social History Tobacco [...] at [facility] 240 [facility] Building [address] [place] [address] Ronald Mills MD [address] [place] [address] [address] [place] [address] documented as of this encounter Procedures Procedure Name Priority Date/Time Associated Diagnosis Comments CARDIAC MISC.?? RESULT SCAN 04/29/2021 12:00 AM EDT CARDIAC EKG RESULT SCAN 04/29/2021 12:00 AM EDT LAB SCAN 04/29/2021 12:00 AM EDT LAB SCAN 04/29/2021 12:00 AM EDT documented in this encounter Results * CARDIAC MISC.?? RESULT SCAN (04/29/2021 12:00 AM EDT) 04/29/2021 us Provider Not In System CV CARDIAC REPORT (CVR) F inal Result * CARDIAC EKG RESULT SCAN (04/29/2021 12:00 AM EDT) 04/29/2021 us Provider Not In System CV CARDIAC REPORT (CVR) F inal Result * LAB SCAN (04/29/2021 12:00 AM EDT) 04/29/2021 us Provider Not In System LAB BLOOD ORDERABLES Carmina l Result * LAB SCAN (04/29/2021 12:00 AM EDT) 04/29/2021 us Provider Not In System LAB BLOOD ORDERABLES Carmina l Result documented in this encounter Visit Diagnoses Not on filedocumented in this encounter Additional Health Concerns Infection Onset Date Last Indicated Resolved Time COVID-19 03/05/2022 03/05/2022 03/15/2022 7:18 PM EDT Assessment Noted Time PHQ-9 Depression Total Score: 2 11/07/19 19 2:06 PM EDT documented as of this encounter Care Teams Radio Intelligence Operator Relationship Specialty Start Date End Date Caitlyn Bowie MD [address] [address] PCP - General Internal Medicine 05/06/21 documented as of this encounter
--- OUTSIDE RECORDS SUMMARY | 2024-08-08 14:47 | XMS_ITS | Encounter Summary ---
Author Organization [facility] and [facility] Address [address] [place] [phone] Care Team Providers Care Informatics Developer Name Role Phone Caitlyn Bowie MD Primary Care Provider +1- [phone] Encounter Details Date Type Department Care Team (Late st Contact Info) Description 07/30/2018 Scanned Document [facility] Health Information Management [address] [place] [address] External, Provider Social History Tobacco Use Types [...] Cancer Center at [facility] 240 [facility] Building [address] [place], [place] [address] Ronald Mills MD 240 [facility] A1 [place] [address] documented as of this encounter Procedures Procedure Name Priority Date/Time Associated Diagnosis Comments US RESULT SCAN Routine 07/30/2018 documented in this encounter Results * US Result Scan (07/30/2018) us Provider External IMG SCAN REPORTS Final Result documented in this encounter Visit Diagnoses Not on filedocumented in this encounter Additional Health Concerns Infection Onset Date Last Indicated Resolved Time COVID-19 03/05/2022 03/05/2022 03/15/2022 7:18 PM EDT documented as of this encounter Care Teams Informatics Developer Relationship Specialty Start Date End Date Caitlyn Bowie MD [facility] 1 [place] [address] PCP - General Internal Medicine 05/06/21 Henry Kelly MD Pulmonary Department 175 [facility], [address] [place] [address] Physician Pulmonary Disease 09/06/17 06/22/20 documented as of this encounter
--- OUTSIDE RECORDS SUMMARY | 2024-08-08 14:47 | XMS_ITS | Encounter Summary ---
Author Organization [facility] and [facility] Address [address] [place] [address] Care Team Providers Care Dupligraph Operator Name Role Phone Caitlyn Bowie MD Primary Care Provider +1- [phone] Encounter Details Date Type Department Care Team (Late st Contact Info) Description 04/25/2021 Scanned Document INTERFACE DEFAULT [address] [place] [address] System, Provider Not In Social History Tobacco [...] [facility] 240 [facility] Building [address] [place], [place] [phone] Ronald Mills MD [address] [place] [address] [address] [place] [address] documented as of this encounter Procedures Procedure Name Priority Date/Time Associated Diagnosis Comments CARDIAC MISC.?? RESULT SCAN 04/25/2021 12:00 AM EDT CARDIAC EKG RESULT SCAN 04/25/2021 12:00 AM EDT documented in this encounter Results * CARDIAC MISC.?? RESULT SCAN (04/25/2021 12:00 AM EDT) 04/25/2021 us Provider Not In System CV CARDIAC REPORT (CVR) F inal Result * CARDIAC EKG RESULT SCAN (04/25/2021 12:00 AM EDT) 04/25/2021 us Provider Not In System CV CARDIAC REPORT (CVR) F inal Result documented in this encounter Visit Diagnoses Not on filedocumented in this encounter Additional Health Concerns Infection Onset Date Last Indicated Resolved Time COVID-19 03/05/2022 03/05/2022 03/15/2022 7:18 PM EDT Assessment Noted Time PHQ-9 Depression Total Score: 2 11/07/19 19 2:06 PM EDT documented as of this encounter Care Teams Dupligraph Operator Relationship Specialty Start Date End Date Caitlyn Bowie MD [address] [address] PCP - General Internal Medicine 05/06/21 documented as of this encounter
--- OUTSIDE RECORDS SUMMARY | 2024-08-08 14:47 | XMS_ITS | Encounter Summary ---
Author Organization [facility] and [facility] Address [address] [place] [address] Care Team Providers Care Drug Abuse Resistance Education Officer Name Role Phone Caitlyn Bowie MD Primary Care Provider +1- [phone] Encounter Details Date Type Department Care Team (Late st Contact Info) Description 09/24/2021 Scanned Document INTERFACE DEFAULT [address] [place] [address] System, Provider Not In Social History Tobacco [...] [facility] [address] [facility] [address] [place] [address] Ronald Mills MD [address] [place] [address] [address] [place] [address] documented as of this encounter Procedures Procedure Name Priority Date/Time Associated Diagnosis Comments NUC MED/PET RESULT SCAN 09/24/2021 12:00 AM EDT CARDIAC ECHO RESULT SCAN 09/24/2021 12:00 AM EDT documented in this encounter Results * CARDIAC ECHO RESULT SCAN (09/24/2021 12:00 AM EDT) 09/24/2021 us Provider Not In System CV CARDIAC REPORT (CVR) F inal Result * NUC MED/PET RESULT SCAN (09/24/2021 12:00 AM EDT) 09/24/2021 us Provider Not In System IMG SCAN REPORTS Final Re sult documented in this encounter Visit Diagnoses Not on filedocumented in this encounter Additional Health Concerns Infection Onset Date Last Indicated Resolved Time COVID-19 03/05/2022 03/05/2022 03/15/2022 7:18 PM EDT Assessment Noted Time PHQ-9 Depression Total Score: 2 11/07/19 19 2:06 PM EDT documented as of this encounter Care Teams Drug Abuse Resistance Education Officer Relationship Specialty Start Date End Date Caitlyn Bowie MD [facility] [address] [address] PCP - General Internal Medicine 05/06/21 documented as of this encounter
--- OUTSIDE RECORDS SUMMARY | 2024-08-08 14:47 | XMS_ITS | Encounter Summary ---
Author Organization [facility] and [facility] Address [address] [place] [address] Care Team Providers Care Security Advisor Name Role Phone Caitlyn Bowie MD Primary Care Provider +1- [phone] Encounter Details Date Type Department Care Team (Late st Contact Info) Description 04/26/2021 Scanned Document INTERFACE DEFAULT [address] [place] [address] System, Provider Not In Social History Tobacco [...] [facility] 240 [facility] Building [address] [place] [address] Ronald Mills MD [address] [place] [address] [address] [place] [address] documented as of this encounter Procedures Procedure Name Priority Date/Time Associated Diagnosis Comments CARDIAC EKG RESULT SCAN 04/26/2021 12:00 AM EDT documented in this encounter Results * CARDIAC EKG RESULT SCAN (04/26/2021 12:00 AM EDT) 04/26/2021 us Provider Not In System CV CARDIAC [...] as of this encounter Care Teams Security Advisor Relationship Specialty Start Date End Date Caitlyn Bowie MD [address] [address] PCP - General Internal Medicine 05/06/21 documented as of this encounter
--- OUTSIDE RECORDS SUMMARY | 2024-08-08 14:47 | XMS_ITS | Encounter Summary ---
Author Organization [facility] Address [address] [place] [address] Care Team Providers Care Supervisor [employer] Name Role Phone Caitlyn Bowie MD Primary Care Provider +1- [phone] Encounter Details Date Type Department Care Team (Late st Contact Info) Description 06/26/2018 Scanned Document [facility] Health Information Management [address] [place] [address] External, Provider Social History Tobacco Use Types [...] 1:00 PM EDT Telemedicine Cancer Center at [facility] 240 [facility] Building [address] [place], [place] [id number] Ronald Mills MD 240 [facility] A1 [place] [address] documented as of this encounter Visit Diagnoses Not on filedocumented in this encounter Additional Health Concerns Infection Onset Date Last Indicated Resolved Time COVID-19 03/05/2022 03/05/2022 03/15/2022 7:18 PM EDT documented as of this encounter Care Teams Supervisor [employer] Relationship Specialty Start Date End Date Caitlyn Bowie MD 3400 [facility] 1 [place] [address] PCP - General Internal Medicine 05/06/21 Henry Kelly MD Pulmonary Department [address] [facility], [address] [place] [address] Physician Pulmonary Disease 09/06/17 06/22/20 documented as of this encounter
--- OUTSIDE RECORDS SUMMARY | 2024-08-08 14:47 | XMS_ITS | Encounter Summary ---
Author Organization [facility] Address [address] [place] [address] Care Team Providers Care Material Dispatcher Name Role Phone Caitlyn Bowie MD Primary Care Provider +1- [phone] Encounter Details Date Type Department Care Team (Late st Contact Info) Description 06/07/2021 Scanned Document Onco-Oncology Program at [address] [place] [address] Norma Renee MD [address] [place] [address] 2 [place] [address] Social History Tobacco Use Types [...] 1:00 PM EDT Telemedicine Cancer Center at [address] [place], [place] [phone] Ronald Mills MD 240 [facility] A1 [place] [address] documented as of this encounter Visit Diagnoses Not on filedocumented in this encounter Additional Health Concerns Infection Onset Date Last Indicated Resolved Time COVID-19 03/05/2022 03/05/2022 03/15/2022 7:18 PM EDT Assessment Noted Time PHQ-9 Depression Total Score: 2 11/07/19 19 2:06 PM EDT documented as of this encounter Care Teams Material Dispatcher Relationship Specialty Start Date End Date Caitlyn Bowie MD [address] [address] PCP - General Internal Medicine 05/06/21 documented as of this encounter
--- OUTSIDE RECORDS SUMMARY | 2024-08-08 14:48 | XMS_ITS | Encounter Summary ---
Author Organization [facility] and [facility] Address [address] [place] [address] Care Team Providers Care Manager Logistic Name Role Phone Caitlyn Bowie MD Primary Care Provider +1- [phone] Encounter Details Date Type Department Care Team (Late st Contact Info) Description 07/06/2021 Scanned Document INTERFACE DEFAULT [address] [place] [address] System, Provider Not In Social History Tobacco [...] [facility] Building [address] [place] [address] Ronald Mills MD [address] [place] [address] [address] [place] [address] documented as of this encounter Visit Diagnoses Not on filedocumented in this encounter Additional Health Concerns Infection Onset Date Last Indicated Resolved Time COVID-19 03/05/2022 03/05/2022 03/15/2022 7:18 PM EDT Assessment Noted Time PHQ-9 Depression Total Score: 2 11/07/19 19 2:06 PM EDT documented as of this encounter Care Teams Manager Logistic Relationship Specialty Start Date End Date Caitlyn Bowie MD [address] [address] PCP - General Internal Medicine 05/06/21 documented as of this encounter
--- OUTSIDE RECORDS SUMMARY | 2024-08-08 14:48 | XMS_ITS | Encounter Summary ---
Author Organization [facility] and [facility] Address [address] [place] [address] Care Team Providers Care Clinical Research Monitor Name Role Phone Caitlyn Bowie MD Primary Care Provider +1- [phone] Encounter Details Date Type Department Care Team (Late st Contact Info) Description 06/24/2022 Scanned Document INTERFACE DEFAULT [address] [place] [address] System, Provider Not In Social History Tobacco [...] [facility] 240 [facility] Building [address] [place], [place] [phone] Ronald Mills MD [address] [place] [address] [address] [place] [address] documented as of this encounter Procedures Procedure Name Priority Date/Time Associated Diagnosis Comments US RESULT SCAN 06/24/2022 12:00 AM EST documented in this encounter Results * US RESULT SCAN (06/24/2022 12:00 AM EST) 06/24/2022 us Provider Not In System IMG SCAN REPORTS Final Re sult documented in this encounter Visit Diagnoses Not on filedocumented in this encounter Additional Health Concerns Assessment Noted Time PHQ-9 Depression Total Score: 2 11/07/19 19 2:06 PM EDT documented as of this encounter Care Teams Clinical Research Monitor Relationship Specialty Start Date End Date Caitlyn Bowie MD [address] [address] PCP - General Internal Medicine 05/06/21 documented as of this encounter
--- OUTSIDE RECORDS SUMMARY | 2024-08-08 14:48 | XMS_ITS | Encounter Summary ---
Author Organization [facility] and [facility] Address [address] [place] [address] Care Team Providers Care Physicist Solid State Name Role Phone Caitlyn Bowie MD Primary Care Provider +1- [phone] Encounter Details Date Type Department Care Team (Late st Contact Info) Description 09/10/2021 Scanned Document Cardiovascular Medicine at [address] [place] [phone] Norma Renee MD [address] [place] [phone] Social History Tobacco Use Types Packs/Day Years [...] PM EDT Telemedicine Cancer Center at [address] [place] [address] Ronald Mills MD [address] [place] [address] [address] [place] [address] documented as of this encounter Visit Diagnoses Not on filedocumented in this encounter Additional Health Concerns Infection Onset Date Last Indicated Resolved Time COVID-19 03/05/2022 03/05/2022 03/15/2022 7:18 PM EDT Assessment Noted Time PHQ-9 Depression Total Score: 2 11/07/19 19 2:06 PM EDT documented as of this encounter Care Teams Physicist Solid State Relationship Specialty Start Date End Date Caitlyn Bowie MD [address] [address] PCP - General Internal Medicine 05/06/21 documented as of this encounter
--- OUTSIDE RECORDS SUMMARY | 2024-08-08 14:48 | XMS_ITS | Encounter Summary ---
Author Organization [facility] and [facility] Address [address] [place] [address] Care Team Providers Care Reefer Engineer Name Role Phone Caitlyn Bowie MD Primary Care Provider +1- [phone] Encounter Details Date Type Department Care Team (Late st Contact Info) Description 06/21/2022 Scanned Document INTERFACE DEFAULT [address] [place] [address] System, Provider Not In Social History Tobacco [...] Telemedicine Cancer Center at [facility] 240 [facility] Building [address] [place], [place] [address] Ronald Mills MD [address] [place] [address] [address] [place] [address] documented as of this encounter Procedures Procedure Name Priority Date/Time Associated Diagnosis Comments CARDIAC CATHETERIZATION 06/21/20 12:00 AM EST documented in this encounter Results * CARDIAC CATHETERIZATION (06/21/2022 12:00 AM EST) Anatomical Region Laterality Modality Chest Other 06/21/2022 us Provider Not In System CV CARDIAC CATH ORDERABLE S Final Result documented in this encounter Visit Diagnoses Not on filedocumented in this encounter Additional Health Concerns Assessment Noted Time PHQ-9 Depression Total Score: 2 11/07/19 19 2:06 PM EDT documented as of this encounter Care Teams Reefer Engineer Relationship Specialty Start Date End Date Caitlyn Bowie MD [address] [address] PCP - General Internal Medicine 05/06/21 documented as of this encounter
--- OUTSIDE RECORDS SUMMARY | 2024-08-08 14:48 | XMS_ITS | Encounter Summary ---
Author Organization [facility] and [facility] Address [address] [place] [address] Care Team Providers Care Business Machines Teacher Name Role Phone Caitlyn Bowie MD Primary Care Provider +1- [phone] Encounter Details Date Type Department Care Team (Late st Contact Info) Description 07/28/2022 Scanned Document Onco-Oncology Program at [address] [place] [address] Norma Renee MD [address] [place] [address] 2 [place] [address] Social History Tobacco Use Types [...] 1:00 PM EDT Telemedicine Cancer Center at [address] [place], [place] [phone] Ronald Mills MD 240 [facility] A1 [place] [address] documented as of this encounter Visit Diagnoses Not on filedocumented in this encounter Additional Health Concerns Assessment Noted Time PHQ-9 Depression Total Score: 2 11/07/19 19 2:06 PM EDT documented as of this encounter Care Teams Business Machines Teacher Relationship Specialty Start Date End Date Caitlyn Bowie MD [address] [address] PCP - General Internal Medicine 05/06/21 documented as of this encounter
--- OUTSIDE RECORDS SUMMARY | 2024-08-08 14:48 | XMS_ITS | Encounter Summary ---
Author Organization [facility] and [facility] Address [address] [place] [address] Care Team Providers Care Gunner'S Mate M Name Role Phone Caitlyn Bowie MD Primary Care Provider +1- [phone] Encounter Details Date Type Department Care Team (Late st Contact Info) Description 06/27/2022 Scanned Document INTERFACE DEFAULT [address] [place] [address] System, Provider Not In Social History Tobacco [...] at [facility] 240 [facility] Building [address] [place], [place] [address] Ronald Mills MD [address] [place] [address] [address] [place] [address] documented as of this encounter Procedures Procedure Name Priority Date/Time Associated Diagnosis Comments XRAY RESULT SCAN 06/27/2022 12:00 AM EST CARDIAC EKG RESULT SCAN 06/27/2022 12:00 AM EST documented in this encounter Results * CARDIAC EKG RESULT SCAN (06/27/2022 12:00 AM EST) 06/27/2022 us Provider Not In System CV CARDIAC REPORT (CVR) F inal Result * XRAY RESULT SCAN (06/27/2022 12:00 AM EST) 06/27/2022 us Provider Not In System IMG SCAN REPORTS Final Re sult documented in this encounter Visit Diagnoses Not on filedocumented in this encounter Additional Health Concerns Assessment Noted Time PHQ-9 Depression Total Score: 2 11/07/19 19 2:06 PM EDT documented as of this encounter Care Teams Gunner'S Mate M Relationship Specialty Start Date End Date Caitlyn Bowie MD [facility] [address] [address] PCP - General Internal Medicine 05/06/21 documented as of this encounter
--- OUTSIDE RECORDS SUMMARY | 2024-08-08 14:48 | XMS_ITS | Encounter Summary ---
Author Organization [facility] and [facility] Address [address] [place] [address] Care Team Providers Care Dye Maker Name Role Phone Caitlyn Bowie MD Primary Care Provider +1- [phone] Encounter Details Date Type Department Care Team (Late st Contact Info) Description 09/02/2021 Scanned Document INTERFACE DEFAULT [address] [place] [address] System, Provider Not In Social History Tobacco [...] [facility] 240 [facility] Building [address] [place], [place] [address] Ronald Mills MD [address] [place] [address] [address] [place] [address] documented as of this encounter Procedures Procedure Name Priority Date/Time Associated Diagnosis Comments CT RESULT SCAN 09/02/2021 12:00 AM EST documented in this encounter Results * CT RESULT SCAN (09/02/2021 12:00 AM EST) 09/02/2021 us Provider Not In System IMG SCAN REPORTS Final Re sult documented in this encounter Visit Diagnoses Not on filedocumented in this encounter Additional Health Concerns Infection Onset Date Last Indicated Resolved Time COVID-19 03/05/2022 03/05/2022 03/15/2022 7:18 PM EDT Assessment Noted Time PHQ-9 Depression Total Score: 2 11/07/19 19 2:06 PM EDT documented as of this encounter Care Teams Dye Maker Relationship Specialty Start Date End Date Caitlyn Bowie MD [address] [address] PCP - General Internal Medicine 05/06/21 documented as of this encounter
--- OUTSIDE RECORDS SUMMARY | 2024-08-08 14:48 | XMS_ITS | Encounter Summary ---
Author Organization [facility] Address [address] [place] [address] Care Team Providers Care Secondary Set Up Man Name Role Phone Caitlyn Bowie MD Primary Care Provider +1- [phone] Encounter Details Date Type Department Care Team (Late st Contact Info) Description 06/23/2022 Scanned Document INTERFACE DEFAULT [address] [place] [address] System, Provider Not In Social History Tobacco [...] [facility] 240 [facility] Building [address] [place] [address] Ronald Mills MD [address] [place] [address] [address] [place] [address] documented as of this encounter Visit Diagnoses Not on filedocumented in this encounter Additional Health Concerns Assessment Noted Time PHQ-9 Depression Total Score: 2 11/07/19 19 2:06 PM EDT documented as of this encounter Care Teams Secondary Set Up Man Relationship Specialty Start Date End Date Caitlyn Bowie MD [address] [address] PCP - General Internal Medicine 05/06/21 documented as of this encounter
--- OUTSIDE RECORDS SUMMARY | 2024-08-08 14:48 | XMS_ITS | Encounter Summary ---
Author Organization [facility] and [facility] Address [address] [place] [address] Care Team Providers Care Harvest Worker Fruit Name Role Phone Caitlyn Bowie MD Primary Care Provider +1- [phone] Encounter Details Date Type Department Care Team (Late st Contact Info) Description 06/28/2022 Scanned Document INTERFACE DEFAULT [address] [place] [address] System, Provider Not In Social History Tobacco [...] at [facility] 240 [facility] Building [address] [place], [place] [address] Ronald Mills MD [address] [place] [address] [address] [place] [address] documented as of this encounter Procedures Procedure Name Priority Date/Time Associated Diagnosis Comments LAB SCAN 06/28/2022 12:00 AM EST documented in this encounter Results * LAB SCAN (06/28/2022 12:00 AM EST) 06/28/2022 us Provider Not In System LAB BLOOD ORDERABLES Carmina l Result documented in this encounter Visit Diagnoses Not on filedocumented in this encounter Additional Health Concerns Assessment Noted Time PHQ-9 Depression Total Score: 2 11/07/19 19 2:06 PM EDT documented as of this encounter Care Teams Harvest Worker Fruit Relationship Specialty Start Date End Date Caitlyn Bowie MD [address] [address] PCP - General Internal Medicine 05/06/21 documented as of this encounter
--- OUTSIDE RECORDS SUMMARY | 2024-08-08 14:48 | XMS_ITS | Encounter Summary ---
Author Organization [facility] and [facility] Address [address] [place] [address] Care Team Providers Care Internet Sourcer Name Role Phone Caitlyn Bowie MD Primary Care Provider +1- [phone] Encounter Details Date Type Department Care Team (Late st Contact Info) Description 07/07/2021 Scanned Document INTERFACE DEFAULT [address] [place] [address] System, Provider Not In Social History Tobacco [...] Center at [facility] 240 [facility] Building [address] [place] [address] Ronald Mills MD [address] [place] [address] [address]1 [place] [address] documented as of this encounter Visit Diagnoses Not on filedocumented in this encounter Additional Health Concerns Infection Onset Date Last Indicated Resolved Time COVID-19 03/05/2022 03/05/2022 03/15/2022 7:18 PM EDT Assessment Noted Time PHQ-9 Depression Total Score: 2 11/07/19 19 2:06 PM EDT documented as of this encounter Care Teams Internet Sourcer Relationship Specialty Start Date End Date Caitlyn Bowie MD [address] [address] PCP - General Internal Medicine 05/06/21 documented as of this encounter
--- OUTSIDE RECORDS SUMMARY | 2024-08-08 14:48 | XMS_ITS | Encounter Summary ---
Author Organization [facility] and [facility] Address [address] [place] [address] Care Team Providers Care Wage And Salary Administrator Name Role Phone Caitlyn Bowie MD Primary Care Provider +1- [phone] Encounter Details Date Type Department Care Team (Late st Contact Info) Description 08/23/2022 Abstract Cardiovascular Medicine at [address] [place] [address] Norma Renee MD [address] [place] [phone] Social History Tobacco Use Types Packs/Day Years [...] 1:00 PM EDT Telemedicine Cancer Center at [address] [place] [address] Ronald Mills MD [address] [place] [address] [address]1 [place] [address] documented as of this encounter Visit Diagnoses Not on filedocumented in this encounter Additional Health Concerns Assessment Noted Time PHQ-9 Depression Total Score: 2 11/07/19 19 2:06 PM EDT documented as of this encounter Care Teams Wage And Salary Administrator Relationship Specialty Start Date End Date Caitlyn Bowie MD [address] [address] PCP - General Internal Medicine 05/06/21 documented as of this encounter
--- OUTSIDE RECORDS SUMMARY | 2024-08-08 14:48 | XMS_ITS | Encounter Summary ---
Author Organization [facility] and [facility] Address [address] [place] [address] Care Team Providers Care Multimedia Coordinator Name Role Phone Caitlyn Bowie MD Primary Care Provider +1- [phone] Encounter Details Date Type Department Care Team (Late st Contact Info) Description 09/09/2021 Scanned Document INTERFACE DEFAULT [address] [place] [address] System, Provider Not In Social History Tobacco [...] [facility] 240 [facility] Building [address] [place] [address] Ronald Mills MD [address] [place] [address] [address] [place] [address] documented as of this encounter Visit Diagnoses Not on filedocumented in this encounter Additional Health Concerns Infection Onset Date Last Indicated Resolved Time COVID-19 03/05/2022 03/05/2022 03/15/2022 7:18 PM EDT Assessment Noted Time PHQ-9 Depression Total Score: 2 11/07/19 19 2:06 PM EDT documented as of this encounter Care Teams Multimedia Coordinator Relationship Specialty Start Date End Date Caitlyn Bowie MD [address] [address] PCP - General Internal Medicine 05/06/21 documented as of this encounter
--- OUTSIDE RECORDS SUMMARY | 2024-08-08 14:48 | XMS_ITS | Encounter Summary ---
Author Organization [facility] and [facility] Address [address] [place] [address] Care Team Providers Care Advanced Practice Nurse Name Role Phone Caitlyn Bowie MD Primary Care Provider +1- [phone] Encounter Details Date Type Department Care Team (Late st Contact Info) Description 01/02/2024 Scanned Document INTERFACE DEFAULT [address] [place] [address] System, Provider Not In Social History Tobacco [...] [facility] 240 [facility] Building [address] [place], [place] [address] Ronald Mills MD [address] [place] [address] [address] [place] [address] documented as of this encounter Procedures Procedure Name Priority Date/Time Associated Diagnosis Comments LAB SCAN 01/02/2024 12:00 AM EDT LAB SCAN 01/02/2024 12:00 AM EDT documented in this encounter Results * LAB SCAN (01/02/2024 12:00 AM EDT) us Provider Not In System LAB BLOOD ORDERABLES Carmina l Result * LAB SCAN (01/02/2024 12:00 AM EDT) us Provider Not In System LAB BLOOD ORDERABLES Carmina l Result documented in this encounter Visit Diagnoses Not on filedocumented in this encounter Additional Health Concerns Assessment Noted Time PHQ-9 Depression Total Score: 2 11/07/19 19 2:06 PM EDT documented as of this encounter Care Teams Advanced Practice Nurse Relationship Specialty Start Date End Date Caitlyn Bowie MD [address] [address] PCP - General Internal Medicine 05/06/21 documented as of this encounter
--- OUTSIDE RECORDS SUMMARY | 2024-08-08 14:48 | XMS_ITS | Encounter Summary ---
Author Organization [facility] and [facility] Address [address] [place] [address] Care Team Providers Care Pediatric Oncology Nurse Name Role Phone Caitlyn Bowie MD Primary Care Provider +1- [phone] Encounter Details Date Type Department Care Team (Late Contact Info) Description 01/31/2023 Abstract [facility] Melanoma Surgery [address] [facility] [place] [address] Shilpi Romero, RN Social History Tobacco Use Types Packs/Day [...] [facility] [address] [facility] [address] [place], [place] [id number] Ronald Mills MD [address] [facility] [address] [place] [address] documented as of this encounter Visit Diagnoses Not on filedocumented in this encounter Additional Health Concerns Assessment Noted Time PHQ-9 Depression Total Score: 2 11/07/19 19 2:06 PM EDT documented as of this encounter Care Teams Pediatric Oncology Nurse Relationship Specialty Start Date End Date Caitlyn Bowie MD [address] [address] PCP - General Internal Medicine 05/06/21 documented as of this encounter
--- OUTSIDE RECORDS SUMMARY | 2024-08-08 14:48 | XMS_ITS | Encounter Summary ---
Author Organization [facility] and [facility] Address [address] [place] [phone] Care Team Providers Care Mechanical Door Repairer Name Role Phone Caitlyn Bowie MD Primary Care Provider +1- [phone] Encounter Details Date Type Department Care Team (Late st Contact Info) Description 06/08/2022 Scanned Document INTERFACE DEFAULT [address] [place] [id number] System, Provider Not In Social History Tobacco [...] [facility] 240 [facility] Building [address] [place], [place] [id number] Ronald Mills MD [address] [place] [address] [address] [place] [address] documented as of this encounter Procedures Procedure Name Priority Date/Time Associated Diagnosis Comments LAB SCAN 06/08/2022 12:00 AM EST documented in this encounter Results * LAB SCAN (06/08/2022 12:00 AM EST) 06/08/2022 us Provider Not In System LAB BLOOD ORDERABLES Carmina l Result documented in this encounter Visit Diagnoses Not on filedocumented in this encounter Additional Health Concerns Assessment Noted Time PHQ-9 Depression Total Score: 2 11/07/19 19 2:06 PM EDT documented as of this encounter Care Teams Mechanical Door Repairer Relationship Specialty Start Date End Date Caitlyn Bowie MD [address] [address] PCP - General Internal Medicine 05/06/21 documented as of this encounter
--- OUTSIDE RECORDS SUMMARY | 2024-08-08 14:48 | XMS_ITS | Encounter Summary ---
Author Organization [facility] and [facility] Address [address] [place] [address] Care Team Providers Care Habilitation Assistant Name Role Phone Caitlyn Bowie MD Primary Care Provider +1- [phone] Encounter Details Date Type Department Care Team (Late st Contact Info) Description 07/22/2021 Scanned Document INTERFACE DEFAULT [address] [place] [address] System, Provider Not In Social History Tobacco [...] Telemedicine [facility] 240 [facility] [address] [place], [place] [id number] Ronald Mills MD [address] [place] [address] [address] [place] [address] documented as of this encounter Procedures Procedure Name Priority Date/Time Associated Diagnosis Comments LAB SCAN 07/22/2021 12:00 AM EST LAB SCAN 07/22/2021 12:00 AM EST documented in this encounter Results * LAB SCAN (07/22/2021 12:00 AM EST) 07/22/2021 us Provider Not In System LAB BLOOD ORDERABLES Carmina l Result * LAB SCAN (07/22/2021 12:00 AM EST) 07/22/2021 us Provider Not In System LAB BLOOD ORDERABLES Carmina l Result documented in this encounter Visit Diagnoses Not on filedocumented in this encounter Additional Health Concerns Infection Onset Date Last Indicated Resolved Time COVID-19 03/05/2022 03/05/2022 03/15/2022 7:18 PM EDT Assessment Noted Time PHQ-9 Depression Total Score: 2 11/07/19 19 2:06 PM EDT documented as of this encounter Care Teams Habilitation Assistant Relationship Specialty Start Date End Date Caitlyn Bowie MD [address] [address] PCP - General Internal Medicine 05/06/21 documented as of this encounter
--- OUTSIDE RECORDS SUMMARY | 2024-08-08 14:48 | XMS_ITS | Encounter Summary ---
Author Organization [facility] and [facility] Address [address] [place] [phone] Care Team Providers Care Content Director Name Role Phone Caitlyn Bowie MD Primary Care Provider +1- [phone] Reason for Visit * Reason Comments Advice Only mass Encounter Details Date Type Department Care Team (Late st Contact Info) Description 09/06/2021 Telephone [facility] [address] [id number] Ronald Mills MD [address] [place] [address] Advice Only (mass) Social History Tobacco Use Types Packs/Day Years [...] Telephone Encounter - Taya Nuno RN - 09/06/2021 10:49 AM EST Pt notified Dr Mills will call her tomorrow night. CT report requested. * Telephone Encounter - MarkusSeanChely - 09/06/2021 9:05 AM EST Her pcp ordered a CT of her stomach and it found a mass in her kidney. She's very scared and would like to discuss with Dr Mills as soon as possible, . documented in this encounter Plan of Treatment Upcoming Encounters Date Type Department Care Team (Late st Contact Info) Description 10/31/2024 1:00 PM EDT [facility] 240 [facility] [address] [place], [place] [phone] Ronald Mills MD 240 [facility] [address] [place] [phone] documented as of this encounter Visit Diagnoses Not on filedocumented in this encounter Additional Health Concerns Infection Onset Date Last Indicated Resolved Time COVID-19 03/05/2022 03/05/2022 03/15/2022 7:18 PM EDT Assessment Noted Time PHQ-9 Depression Total Score: 2 11/07/19 19 2:06 PM EDT documented as of this encounter Care Teams Content Director Relationship Specialty Start Date End Date Caitlyn Bowie MD [address] [address] PCP - General Internal Medicine 05/06/21 documented as of this encounter
--- OUTSIDE RECORDS SUMMARY | 2024-08-08 14:48 | XMS_ITS | Encounter Summary ---
Author Organization [facility] and [facility] Address [address] [place] [address] Care Team Providers Care Automatic Mounter Name Role Phone Caitlyn Bowie MD Primary Care Provider +1- [phone] Encounter Details Date Type Department Care Team (Late st Contact Info) Description 09/07/2021 Scanned Document INTERFACE DEFAULT [address] [place] [address] System, Provider Not In Social History Tobacco [...] [facility] 240 [facility] Building [address] [place], [place] [phone] Ronald Mills MD [address] [place] [address] [address] [place] [address] documented as of this encounter Procedures Procedure Name Priority Date/Time Associated Diagnosis Comments US RESULT SCAN 09/07/2021 12:00 AM EST documented in this encounter Results * US RESULT SCAN (09/07/2021 12:00 AM EST) 09/07/2021 us Provider Not In System IMG SCAN REPORTS Final Re sult documented in this encounter Visit Diagnoses Not on filedocumented in this encounter Additional Health Concerns Infection Onset Date Last Indicated Resolved Time COVID-19 03/05/2022 03/05/2022 03/15/2022 7:18 PM EDT Assessment Noted Time PHQ-9 Depression Total Score: 2 11/07/19 19 2:06 PM EDT documented as of this encounter Care Teams Automatic Mounter Relationship Specialty Start Date End Date Caitlyn Bowie MD [address] [address] PCP - General Internal Medicine 05/06/21 documented as of this encounter
--- OUTSIDE RECORDS SUMMARY | 2024-08-08 14:48 | XMS_ITS | Encounter Summary ---
Author Organization [facility] Address [address] [place] [address] Care Team Providers Care Floral Designer Name Role Phone Pcp, No Primary Care Provider Brennan Mario MD Primary Care Provider [phone] Caitlyn Bowie MD Primary Care Provider [phone]- [phone] Encounter Details Date Type Department Care Team (Late st Contact Info) Description 01/04/2022 Scanned Document [facility] Neurology Ophthalmology [address] [address] Yary Whitten DO [address] [place] [address] Social History Tobacco Use Types Packs/Day Years Used Date Smoking Tobacco: Never Alcohol Use Standard Drinks/Week Comments Never 0 (1 standard drink = 0.6 oz pur e alcohol) Sex and Gender Information Value Date Recorded Sex Assigned at Not on file Gender Identity Not on file Sexual Orientation Not on file COVID-19 Exposure Response Date Recorded In the last 10 days, have yo u been in contact with someone who was confirmed or suspected to have Coronavirus/COVID-19? No / Unsure 01/04/2022 10:46 AM EDT documented as of this encounter Plan of Treatment Not on file documented as of this encounter Visit Diagnoses Not on filedocumented in this encounter Care Teams Floral Designer Relationship Specialty Start Date End Date Pcp, No PCP - General General Medicine 10/04/21 07/18/22 Brennan Burnett MD [address] [place] [address] PCP - General 07/19/22 03/19/23 Caitlyn Bowie MD [address] [place] [address] PCP - General Internal Medicine 03/20/23 documented as of this encounter
--- OUTSIDE RECORDS SUMMARY | 2024-08-08 14:48 | XMS_ITS | Encounter Summary ---
Author Organization [facility] and [facility] Address [address] [place] [address] Care Team Providers Care Communications Intern Name Role Phone Caitlyn Bowie MD Primary Care Provider [phone]- [phone] Encounter Details Date Type Department Care Team (Late st Contact Info) Description 12/23/2022 Scanned Document INTERFACE DEFAULT [address] [place] [address] System, Provider Not In Social History Tobacco [...] [facility] 240 [facility] Building [address] [place] [address] Ronald Mills MD [address] [place] [address] [address] [place] [address] documented as of this encounter Visit Diagnoses Not on filedocumented in this encounter Additional Health Concerns Assessment Noted Time PHQ-9 Depression Total Score: 2 11/07/19 19 2:06 PM EDT documented as of this encounter Care Teams Communications Intern Relationship Specialty Start Date End Date Caitlyn Bowie MD [address] [address] PCP - General Internal Medicine 05/06/21 documented as of this encounter
--- OUTSIDE RECORDS SUMMARY | 2024-08-08 14:48 | XMS_ITS | Encounter Summary ---
Author Organization [facility] and [facility] Address [address] [place] [address] Care Team Providers Care Parent Aide Name Role Phone Caitlyn Bowie MD Primary Care Provider +1- [phone] Encounter Details Date Type Department Care Team (Late st Contact Info) Description 06/20/2022 Scanned Document INTERFACE DEFAULT [address] [place] [address] System, Provider Not In Social History Tobacco [...] Telemedicine [facility] 240 [facility] Building [address] [place], [place] [phone] Ronald Mills MD [address] [place] [address] [address] [place] [address] documented as of this encounter Procedures Procedure Name Priority Date/Time Associated Diagnosis Comments XRAY RESULT SCAN 06/20/2022 12:00 AM EST CARDIAC EKG RESULT SCAN 06/20/2022 12:00 AM EST documented in this encounter Results * CARDIAC EKG RESULT SCAN (06/20/2022 12:00 AM EST) 06/20/2022 us Provider Not In System CV CARDIAC REPORT (CVR) F inal Result * XRAY RESULT SCAN (06/20/2022 12:00 AM EST) 06/20/2022 us Provider Not In System IMG SCAN REPORTS Final Re sult documented in this encounter Visit Diagnoses Not on filedocumented in this encounter Additional Health Concerns Assessment Noted Time PHQ-9 Depression Total Score: 2 11/07/19 19 2:06 PM EDT documented as of this encounter Care Teams Parent Aide Relationship Specialty Start Date End Date Caitlyn Bowie MD [facility] [address] [address] PCP - General Internal Medicine 05/06/21 documented as of this encounter
--- OUTSIDE RECORDS SUMMARY | 2024-08-08 14:48 | XMS_ITS | Encounter Summary ---
Author Organization [facility] and [facility] Address [address] [place] [address] Care Team Providers Care Rf Design Engineer Name Role Phone Caitlyn Bowie MD Primary Care Provider [phone]- [phone] Encounter Details Date Type Department Care Team (Late st Contact Info) Description 10/24/2022 Scanned Document INTERFACE DEFAULT [address] [place] [address] System, Provider Not In Social History Tobacco [...] [facility] 240 [facility] Building [address] [place], [place] [phone] Ronald Mills MD [address] [place] [address] [address] [place] [address] documented as of this encounter Procedures Procedure Name Priority Date/Time Associated Diagnosis Comments LAB SCAN 10/24/2022 12:00 AM EDT LAB SCAN 10/24/2022 12:00 AM EDT documented in this encounter Results * LAB SCAN (10/24/2022 12:00 AM EDT) 10/24/2022 us Provider Not In System LAB BLOOD ORDERABLES Carmina l Result * LAB SCAN (10/24/2022 12:00 AM EDT) 10/24/2022 us Provider Not In System LAB BLOOD ORDERABLES Carmina l Result documented in this encounter Visit Diagnoses Not on filedocumented in this encounter Additional Health Concerns Assessment Noted Time PHQ-9 Depression Total Score: 2 11/07/19 19 2:06 PM EDT documented as of this encounter Care Teams Rf Design Engineer Relationship Specialty Start Date End Date Caitlyn Bowie MD [facility] [address] [address] PCP - General Internal Medicine 05/06/21 documented as of this encounter
--- OUTSIDE RECORDS SUMMARY | 2024-08-08 14:48 | XMS_ITS | Encounter Summary ---
Author Organization [facility] and [facility] Address [address] [place] [address] Care Team Providers Care Knife Glazer Name Role Phone Caitlyn Bowie MD Primary Care Provider +1- [phone] Encounter Details Date Type Department Care Team (Late st Contact Info) Description 07/08/2022 Scanned Document Cardiovascular Medicine at [address] [place] [id number] Norma Renee MD [address] [place] [phone] Social History Tobacco Use Types Packs/Day Years [...] 1:00 PM EDT Telemedicine Cancer Center at [address] [place] [address] Ronald Mills MD [address] [place] [address] [address] [place] [address] documented as of this encounter Visit Diagnoses Not on filedocumented in this encounter Additional Health Concerns Assessment Noted Time PHQ-9 Depression Total Score: 2 11/07/19 19 2:06 PM EDT documented as of this encounter Care Teams Knife Glazer Relationship Specialty Start Date End Date Caitlyn Bowie MD [address] [address] PCP - General Internal Medicine 05/06/21 documented as of this encounter
--- OUTSIDE RECORDS SUMMARY | 2024-08-08 14:49 | XMS_ITS ---
Author Organization [facility] Address [address] [facility] [address] [place] [address] Care Team Providers Care Television Tube Inspector Name Role Phone EVELIN RAMSAY Primary Care Provider Yenny Hou Unavailable [phone] Allergies Allergen (clinical drug ingredient) Drug/Non Drug [...] Sulfa Antibiotics Skin Rash Drug Allergy Active REASON FOR VISIT LT BREAST PAIN Medications Medication SIG (Take, Route, Frequency, Duration) Notes Start Date End Date Status Estradiol 10 MCG 1 tablet Vaginal Two times a Week for 90 days 07/09/2024 Active Clindamycin Phosphate 2 % 1 application at bedtime Vaginal EVERY NIGHT for 7 days 07/09/2024 Active Cefpodoxime Proxetil 200 MG 1 tablet with food Orally every 12 hrs for 14 day(s) 05/13/2024 Not-Taking Vitamin C 500 MG as directed Orally Active Azelastine HCl 0.15 % TWO SPRAYS INTO EA CH NOSTRIL TWO TIMES A DAY Nasal for 25 Active coumadin 1 tab Oral scaled Ac tive ZyrTEC Allergy 10MG 1 ORAL daily for -3 06/10/2014 Active Valium 5MG 1 tablet as needed O RAL at bedtime, 1/2 tab prn during the day [facility] 06/10/2014 Active traZODone HCl 50MG 1 ORAL at bedtime fo r -3 [facility] 06/10/2014 Active Meclizine HCl 25 MG 1 tablet as needed Orally [facility] 06/10/2014 Active Advair HFA 230-21MCG/ACT 2 Inhalation tw ice daily for -3 06/10/2014 Active EpiPen Active Rosuvastatin Calcium 05/03/2024 Active predniSONE 2.5 MG Oral for 30 Active Furosemide 20 MG TAKE ONE TABLET BY MOUTH EVERY DAY NEEDED FOR LEG SWELLING Oral for 90 Active Metoprolol Succinate ER 50 MG 1 tablet Orally Once a day Active Synthroid 25MCG 1 ORAL daily for -3 [facility] 06/10/2014 Active Singulair 10 MG 1 tablet Orally Once a day Active Potassium Active Albuterol Sulfate (2.5 MG/3ML)0.083% Inhalation 4 x a day prn 06/10/2014 Active Social History Tobacco Use: Social [...] (Standard) Question Answer Notes Tobacco use: Nonsmoker Vital Signs Temperature 97.7 degrees Fahrenheit 07/18/19 25 Blood pressure systolic 102 mm Hg 07/18/19 25 Blood pressure diastolic 62 mm Hg 025 Height 63 in 07/18/2024 Weight 126 lbs 07/18/2024 BMI 22.32 kg/m2 07/18/2024 Encounters Encounter Location Date Provider Diagnosis [address] [place] [address] 07/18/2024 Yenny Elizalde Encounter for screening mammogram for malignant neoplasm of breast Z12.31 and Mastodynia N64.4 Assessments Encounter Date Diagnosis (ICD Code) Assessment Notes Treatment Notes Treatment Clinical Notes Section Notes 07/18/2024 Encounter for screening mammogram for malignant neoplasm of breast (ICD-10 - Z12.31) REGULAR MAMMOGRAMS AND SBE'S WERE RECOMMENDED. 07/18/2024 Mastodynia (ICD-10 - N64.4) REASSURED PAT THAT BREAST EXAM TODAY WAS ENTIRELY NORMAL. SHE HAS LARGE PENDULOUS BREASTS AND SHE MAY NOT BE WEARING A WELL SUPPORTIVE BRA. ADVISED HER TO GET FITTED WITH GOOD PAIRS OF BRAS. WEAR A LOOSE BRA TO BED. IBUPROFEN OR ACETAMINOPHEN PRN. Plan Of Treatment Treatment Notes Assessment Notes Encounter for screening mamm ogram for malignant neoplasm of breast REGULAR MAMMOGRAMS AND SBE'S WERE RECOMMENDED. Mastodynia REASSURED PAT THAT BREAST EXAM TODAY WAS ENTIRELY NORMAL. SHE HAS LARGE PENDULOUS BREASTS AND SHE MAY NOT BE WEARING A WELL SUPPORTIVE BRA. ADVISED HER TO GET FITTED WITH GOOD PAIRS OF BRAS. WEAR A LOOSE BRA TO BED. IBUPROFEN OR ACETAMINOPHEN PRN. Pending Test Test Name Order Date MM Digital Mammo Screening 07/18/2024 Next Appt Details Follow Up: prn, Reason: Progress Notes * TONIE WATSONOB:1945 (79 yo F)Acc No.[id number]:07/18/2024 PROGRESS NOTES Patient:?CINDA WATSON Appointment Provider:?Yenny doan M.D. :1945???Age:79 Y???Sex:Female D ate:07/18/2024 Address:[address] [place] [address] Pcp:EVELIN RAMSAY Subjective: * Chief Complaints: * ???LT BREAST PAIN * HPI: ???New/Follow-up Patient Consult:? PAT C/O LEFT BREAST DISCOMFORT OF A FEW DAYS DURATION.? NO NIPPLE DISCHARGE, NO PALPABLE MASSES.? HER LAST MAMMOGRAM DONE IN AUG 2023 WAS NORMAL. * ROS:?general:?no?chest pain.?no?palpitations.?no?headache.?no?cough.?no?shortness of breath.?no?fever.?no?unexplained weight loss.?no?nausea/vomiting.?no?change in bowel movements.?no blood in stool.?no?genitourinary complaints.?no?skin complaints.? * Medical History:? 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 * OB History:?Total pregnancies?2.?Total living children?2.?NVD?2.? * Surgical History:?Hysterecto my 1978Tonsillectomy/Adendoidectomy Colonoscopy Right Breast Fibroid Removed Left Lower Lung Lobectomy, Lung Cancer 2009[facility]cise Hematoma, Adrenal Issues * Hospitalization/Major Diagno stic Procedure:?DVT at 33 2 Vaginal Deliveries Respiratory Failure Pneumonia, Hematosis, Blood Clots See Surgical Hx * Family History:?Mother: hear t disease, lung cancer.?Maternal aunt: colon cancer.? * Social History:?Tobacco Use:?Tobacco Control (Standard)?Tobacco use:?Nonsmoker ???Sexual History:?Sexual History?Had sex in the past 12 months (vaginal, oral, or anal)??No ?Details of Sexual History?Are you sexually active??No ???Drugs/Alcohol:?Drugs?Have you used drugs other than those for medical reasons in the past 12 months??No ???Miscellaneous:?Children: yes, 2. ?Exercise: no. ?Home smoke detector use: yes. ?Living with: alone. ?Marital status: . ?Natural support system: yes. ?Occupation: Retired. ?Sexually active: no. ???Drug/Alcohol:?AUDIT-C (Standard)?Did you have a drink containing alcohol in the past year??No ?Points?0 ?Interpretation?Negative * Medications:?TakingPotassium Albuterol Sulfate (2.5 MG/3ML)0.083% Inhalation 4 x a day prn Synthroid 25MCG 1 ORAL daily , Notes to Pharmacist: Baltazar-MJMetoprolol Succinate ER 50 MG Tablet Extended Release 24 Hour 1 tablet Orally Once a day Singulair 10 MG Tablet 1 tablet Orally Once a day Furosemide 20 MG Tablet TAKE ONE TABLET BY MOUTH EVERY DAY NEEDED FOR LEG SWELLING Oral EpiPen Advair HFA 230-21MCG/ACT 2 Inhalation twice daily predniSONE 2.5 MG Tablet Oral Rosuvastatin Calcium Meclizine HCl 25 MG Tablet 1 tablet as needed Orally , Notes to Pharmacist: Baltazar-MJtraZODone HCl 50MG 1 ORAL at bedtime , Notes to Pharmacist: Baltazar-MJValium 5MG 1 tablet as needed ORAL at bedtime, 1/2 tab prn during the day , Notes to Pharmacist: Baltazar-MJZyrTEC Allergy 10MG 1 ORAL daily coumadin 1 tab Oral scaled Azelastine HCl 0.15 % Solution TWO SPRAYS INTO EACH NOSTRIL TWO TIMES A DAY Nasal Vitamin C 500 MG Capsule as directed Orally Clindamycin Phosphate 2 % Cream 1 application at bedtime Vaginal EVERY NIGHT Estradiol 10 MCG Tablet 1 tablet Vaginal Two times a Week Taking Potassium Taking Albuterol Sulfate (2.5 MG/3ML)0.083% Inhalation 4 x a day prn Taking Synthroid 25MCG 1 ORAL daily , Notes to Pharmacist: Baltazar-MJKaroline Metoprolol Succinate ER 50 MG Tablet Extended Release 24 Hour 1 tablet Orally Once a day Taking Singulair 10 MG Tablet 1 tablet Orally Once a day Taking Furosemide 20 MG Tablet TAKE ONE TABLET BY MOUTH EVERY DAY NEEDED FOR LEG SWELLING Oral Taking EpiPen Taking Advair HFA 230-21MCG/ACT 2 Inhalation twice daily Taking predniSONE 2.5 MG Tablet Oral Taking Rosuvastatin Calcium Taking Meclizine HCl 25 MG Tablet 1 tablet as needed Orally , Notes to Pharmacist: Nely traZODone HCl 50MG 1 ORAL at bedtime , Notes to Pharmacist: Nely Valium 5MG 1 tablet as needed ORAL at bedtime, 1/2 tab prn during the day , Notes to Pharmacist: Nely ZyrTEC Allergy 10MG 1 ORAL daily Taking coumadin 1 tab Oral scaled Taking Azelastine HCl 0.15 % Solution TWO SPRAYS INTO EACH NOSTRIL TWO TIMES A DAY Nasal Taking Vitamin C 500 MG Capsule as directed Orally Taking Clindamycin Phosphate 2 % Cream 1 application at bedtime Vaginal EVERY NIGHT Taking Estradiol 10 MCG Tablet 1 tablet Vaginal Two times a Week Not-TakingCefpodoxime Proxetil 200 MG Tablet 1 tablet with food Orally every 12 hrs Medication List reviewed and reconciled with the patientNot-Taking Cefpodoxime Proxetil 200 MG Tablet 1 tablet with food Orally every 12 hrs Medication List reviewed and reconciled with the patient * Allergies:?IVP DYE: Shock - AllergyMUSCLE RELAXERS: Shock - AllergyBIAXIN: Shock - AllergyERYTHROMYCIN: Shock - AllergyGENTAMICIN SULFATE: Shock - AllergyLEVAQUIN: MALAISE - AllergyVANCOMYCIN HCL: Shock - AllergyVOLTAREN: Shock - AllergyZITHROMAX: Shock - AllergyGastrografin: AllergyAvelox: Shock - AllergyCipro: AllergyFlagyl: AllergySulfa Antibiotics: Skin Rash - AllergyPenicillin: Shock - AllergyAvanafil: Shock - AllergyNovocain: Increased Heart Rate - Allergyno[Allergies Verified] Objective: * Vitals:?Ht: 63 in, Wt: 126 l bs, BMI:22.32Index, BP: 102/62 mm Hg, Temp: 97.7 F. * Examination: ???General Examination: ?GENERAL APPEARANCE:?in no acute distress, well developed, well nourished.?BREASTS:?normal, no dimpling, no discharge, no drainage, no masses palpable bilaterally, nontender.? Assessment: * Assessment: 1.?Encounter for screening m ammogram for malignant neoplasm of breast - Z12.31???2.?Mastodynia - N64.4??? Plan: * Treatment: 2.?Mastodynia? Notes: REASSURED PAT THAT BREAST EXAM TODAY WAS ENTIRELY NORMAL. SHE HAS LARGE PENDULOUS BREASTS AND SHE MAY NOT BE WEARING A WELL SUPPORTIVE BRA. ADVISED HER TO GET FITTED WITH GOOD PAIRS OF BRAS. WEAR A LOOSE BRA TO BED. IBUPROFEN OR ACETAMINOPHEN PRN.?? * Procedure Codes:? * Follow Up:?prn * Images: Billing Information: * Visit Code:? * Procedure Codes:? * Sign off status: Completed true * Appointment Provider:?Yenny Elizalde M.D. Date:?07/18/2024 Generated for Arely paige/Sebastian/Brandonsmitting on:?08/08/2024 02:48 PM EST History and Physical Notes * HPI (History of Present Illness) Category Sub-Category Detail Notes Category Not es New/Follow-up Patient Consult PAT C/O LEFT BREAST DISCOMFORT OF A FEW DAYS DURATION. NO NIPPLE DISCHARGE, NO PALPABLE MASSES. HER LAST MAMMOGRAM DONE IN AUG 2023 WAS NORMAL. Examination Category Sub-Category Detail Notes Category Not es General Examination GENERAL APPEARANCE: in no ac [place] distress, well developed, well nourished BREASTS: normal, no dimpling, no discharge, no drainage, no masses palpable bilaterally, nontender
--- OUTSIDE RECORDS SUMMARY | 2024-08-08 14:49 | XMS_ITS | Encounter Summary ---
Author Organization [facility] Address [address] [place] [address] Care Team Providers Care Health Technician Hearing Name Role Phone Caitlyn Bowie MD Primary Care Provider +1- [phone] Encounter Details Date Type Department Care Team (Late st Contact Info) Description 09/09/2015 Scanned Document [facility] Health Information Management [address] [place] [address] External, Provider Social History Tobacco Use Types [...] [facility] [address] [facility] [address] [place], [place] [id number] Ronald Mills MD [address] [facility] [address] [place] [address] documented as of this encounter Procedures Procedure Name Priority Date/Time Associated Diagnosis Comments LAB SCAN Routine 09/09/2015 documented in this encounter Results * Lab Scan (09/09/2015) Blood specimen (specimen) us Provider External LAB BLOOD ORDERABLES Final Res ult [facility] documented in this encounter Visit Diagnoses Not on filedocumented in this encounter Additional Health Concerns Infection Onset Date Last Indicated Resolved Time COVID-19 03/05/2022 03/05/2022 03/15/2022 7:18 PM EDT documented as of this encounter Care Teams Health Technician Hearing Relationship Specialty Start Date End Date Caitlyn Bowie MD [address] [facility] 1 [place] [address] PCP - General Internal Medicine 05/06/21 Henry Kelly MD Pulmonary Department [address] [facility] [place] [address] Physician Pulmonary Disease 09/06/17 06/22/20 documented as of this encounter
--- OUTSIDE RECORDS SUMMARY | 2024-08-08 14:49 | XMS_ITS | Encounter Summary ---
Author Organization [facility] and [facility] Address [address] [place] [address] Care Team Providers Care Loan Manager Name Role Phone Caitlyn Bowie MD Primary Care Provider +1- [phone] Encounter Details Date Type Department Care Team (Late st Contact Info) Description 11/04/2015 Scanned Document [facility] Health Information Management [address] [place] [address] External, Provider Social History Tobacco Use Types [...] at [facility] [address] [facility] [address] [place], [place] [id number] Ronald Mills MD [address] [facility] [address] [place] [address] documented as of this encounter Procedures Procedure Name Priority Date/Time Associated Diagnosis Comments NUC MED/PET RESULT SCAN Routine 11/04/2015 documented in this encounter Results * Nuc Med/PET Result Scan (11/04/2015) us Provider External IMG SCAN REPORTS Edited Result - Final [facility] [place], [place], [facility] documented in this encounter Visit Diagnoses Not on filedocumented in this encounter Additional Health Concerns Infection Onset Date Last Indicated Resolved Time COVID-19 03/05/2022 03/05/2022 03/15/2022 7:18 PM EDT documented as of this encounter Care Teams Loan Manager Relationship Specialty Start Date End Date Caitlyn Bowie MD [address] [facility] [address] 1 [place] [address] PCP - General Internal Medicine 05/06/21 Henry Kelly MD Pulmonary Department [address] [facility] [place] [address] Physician Pulmonary Disease 09/06/17 06/22/20 documented as of this encounter
--- OUTSIDE RECORDS SUMMARY | 2024-08-08 14:49 | XMS_ITS | Encounter Summary ---
Author Organization [facility] Address [address] [place] [address] Care Team Providers Care Pit Tanner Name Role Phone Caitlyn Bowie MD Primary Care Provider +1- [phone] Encounter Details Date Type Department Care Team (Late st Contact Info) Description 08/28/2015 Scanned Document [facility] Health Information Management [address] [place] [address] External, Provider Social History Tobacco Use Types [...] Affairs [facility] [address] [facility] [address] [place], [place] [id number] Ronald Mills MD [address] [facility] [address] [place] [address] documented as of this encounter Visit Diagnoses Not on filedocumented in this encounter Additional Health Concerns Infection Onset Date Last Indicated Resolved Time COVID-19 03/05/2022 03/05/2022 03/15/2022 7:18 PM EDT documented as of this encounter Care Teams Pit Tanner Relationship Specialty Start Date End Date Caitlyn Bowie MD [address] [facility] 1 [place] [address] PCP - General Internal Medicine 05/06/21 Henry Kelly MD Pulmonary Department [address] [facility] [place] [address] Physician Pulmonary Disease 09/06/17 06/22/20 documented as of this encounter
--- OUTSIDE RECORDS SUMMARY | 2024-08-08 14:49 | XMS_ITS | Encounter Summary ---
Author Organization [facility] Address [address] [place] [address] Care Team Providers Care Electronic Imager Name Role Phone Caitlyn Bowie MD Primary Care Provider +1- [phone] Encounter Details Date Type Department Care Team (Late st Contact Info) Description 04/18/2022 Scanned Document INTERFACE DEFAULT [address] [place] [address] System, Provider Not In Social History Tobacco [...] [facility] [address] [facility] [address] [place] [address] Ronald Mills MD [address] [place] [address] [address] [place] [address] documented as of this encounter Visit Diagnoses Not on filedocumented in this encounter Additional Health Concerns Assessment Noted Time PHQ-9 Depression Total Score: 2 11/07/19 19 2:06 PM EDT documented as of this encounter Care Teams Electronic Imager Relationship Specialty Start Date End Date Caitlyn Bowie MD [address] [address] PCP - General Internal Medicine 05/06/21 documented as of this encounter
--- OUTSIDE RECORDS SUMMARY | 2024-08-08 14:49 | XMS_ITS | Encounter Summary ---
Author Organization [facility] Address [address] [place] [address] Care Team Providers Care Social Media Intern Name Role Phone Cailtyn Bowie MD Primary Care Provider +1- [phone] Encounter Details Date Type Department Care Team (Late st Contact Info) Description 09/09/2015 Scanned Document [facility] Health Information Management [address] [place] [address] External, Provider Social History Tobacco Use Types [...] [facility] [address] [facility] [address] [place], [place] [id number] Ronald Mills MD [address] [facility] [address] [place] [address] documented as of this encounter Procedures Procedure Name Priority Date/Time Associated Diagnosis Comments LAB SCAN Routine 09/09/2015 documented in this encounter Results * Lab Scan (09/09/2015) Blood specimen (specimen) us Provider External LAB BLOOD ORDERABLES Final Res ult Performing Organization Address City/State/[facility] Co de Phone Number [facility] documented in this encounter Visit Diagnoses Not on filedocumented in this encounter Additional Health Concerns Infection Onset Date Last Indicated Resolved Time COVID-19 03/05/2022 03/05/2022 03/15/2022 7:18 PM EDT documented as of this encounter Care Teams Social Media Intern Relationship Specialty Start Date End Date Caitlyn Bowie MD [address] [facility] 1 [place] [address] PCP - General Internal Medicine 05/06/21 Henry Kelly MD Pulmonary Department [address] [facility] [place] [address] Physician Pulmonary Disease 09/06/17 06/22/20 documented as of this encounter
--- OUTSIDE RECORDS SUMMARY | 2024-08-08 14:49 | XMS_ITS | Continuity of Care Document ---
Author Organization [facility] Address [address] [place] [address] [address] [place] [address] Phone Care Team Providers Care Log Sawyer Name Role Phone Musa Hughes M.D. Unavailable Unavailable Allergies, Adverse Reactions, Alerts Substance Reaction Status Criticality erythromycin base Active No Informa tion ethyl alcohol Active No Information Penicillins Active No Information Iodinated Contrast Media Active No Information Medications Medication Instructions Dosage Effective Dates (start - stop) Status Comments Alphagan P 0.1 % Eye Drops 1 drop to each eye every twelve hours - Active Crestor 20 mg Tab - Active Zetia 10 mg Tab - Active gabapentin 600 mg Tab - Active Prevacid 30 mg Cap - Active trazodone 50 mg Tab - Active Adult Low Dose Aspirin 81 mg Tab, Delayed Release - Active Vitamin D 50,000 unit Cap - Active senna 8.6 mg Tab - Active Centrum Silver 500 mcg-250 mcg Chewable Tab - Active Co Q-10 100 mg-5 unit Cap - Active Procedures Procedure Date Exam Level V Refraction PQRI Measure 12 Visual Field Examination(s) Fundus Disc Photos Sensorimotor PQRI ERx Submitted PQRI ERx Submitted Refraction Visual Field Examination(s) Gonioscopy Corneal Pachymetry Level 1 Fundus Disc Photos New Pt. Level V Advance Directives Directive Yes / No Effective Date File Name No Information Encounters Encounter Description Practice Location Reason(s) For Visit Diagnoses Date Provider Providers Copied on Encounter [facility], [address] [place] [address], [id number], tel:[phone] [facility] [place] No Information Saul Vigil. [address] [place] [address], [address] [place] [address] , . tel: [phone] Exam Level V [facility], [address] [place] [address], [id number], tel:[phone] [facility] [place] Visual Field Defect UnspOptic NeuritisLow Tension GlaucomaHeadacheH emangioma, Unspecified SiteMultiple SclerosisPhotopsi aDiplopiaConverge nce InsufficiencyDry Eye Syndrome Huy Foster. [address] [place] [address], [address] [place] [address] , . tel: [phone] Referring Provider: MD Mariama Persaud, [address] [place] [address] [place], [address]. tel:[phone] New Pt. Level V [facility] Renea Carrillo, [address] [place] [address], [id number], tel:[phone] [facility] [place] - (chief complaint) - (chief complaint) - (chief complaint) - (chief complaint) - (chief complaint) - (chief complaint) Optic NeuritisHeadacheV isual Field Defect UnspLow Tension GlaucomaLow Tension GlaucomaOptic NeuritisSeizure DisorderVisual Field Defect UnspHemangioma, Unspecified SiteConvergence InsufficiencyCoag defect von Willebrand dis 1 Huy Foster. [address] [place] [address], [id number] , . tel: [phone] Referring Provider: MD Mariama Persaud, [address] [place] [address] [place], [address]. tel:[phone] Family History Family Member Type Diagnosis Age At Onset Sister Problem (finding) Leukemia Mother Problem (finding) Cancer, lung Payers Payer name Insurance type Covered republican ID Authoriza tion(s) Medicare Primary [place] [id number] BCBS NATIONAL PLAN [id number] Social History Type Description Quantity Date Captured Comments Sex Female Smoking Status No Information Chief Complaint And Reason For Visit No Information Plan Of Treatment Date Type Action Status No Information History Of Present Illness Encounter Date Complaint History Of Prese nt Illness No Information Instructions Date Instruction Additional Infor mation No Information Assessments Type Assessment Date No Information
--- OUTSIDE RECORDS SUMMARY | 2024-08-08 14:49 | XMS_ITS | Encounter Summary ---
Author Organization [facility] Address [address] [place] [address] Care Team Providers Care Senior Accountant Name Role Phone Caitlyn Bowie MD Primary Care Provider +1- [phone] Encounter Details Date Type Department Care Team (Late st Contact Info) Description 05/02/2022 Scanned Document INTERFACE DEFAULT [address] [place] [address] System, Provider Not In Social History Tobacco [...] [facility] [address] [facility] [address] [place] [address] Ronald Mills MD [address] [place] [address] [address] [place] [address] documented as of this encounter Procedures Procedure Name Priority Date/Time Associated Diagnosis Comments CARDIAC EKG RESULT SCAN 05/02/2022 12:00 AM EDT CARDIAC EKG RESULT SCAN 05/02/2022 12:00 AM EDT documented in this encounter Results * CARDIAC EKG RESULT SCAN (05/02/2022 12:00 AM EDT) 05/02/2022 us Provider Not In System CV CARDIAC REPORT (CVR) F inal Result * CARDIAC EKG RESULT SCAN (05/02/2022 12:00 AM EDT) 05/02/2022 us Provider Not In System CV CARDIAC REPORT (CVR) F inal Result documented in this encounter Visit Diagnoses Not on filedocumented in this encounter Additional Health Concerns Assessment Noted Time PHQ-9 Depression Total Score: 2 11/07/19 19 2:06 PM EDT documented as of this encounter Care Teams Senior Accountant Relationship Specialty Start Date End Date Caitlyn Bowie MD [address] [address] PCP - General Internal Medicine 05/06/21 documented as of this encounter
--- OUTSIDE RECORDS SUMMARY | 2024-08-08 14:49 | XMS_ITS | Encounter Summary ---
Author Organization [facility] and [facility] Address [address] [place] [phone] Care Team Providers Care Basket Bottom Machine Operator Name Role Phone Caitlyn Bowie MD Primary Care Provider +1- [phone] Encounter Details Date Type Department Care Team (Late st Contact Info) Description 12/16/2015 Scanned Document [facility] Health Information Management [address] [place] [address] External, Provider Social History Tobacco Use Types [...] at [facility] 240 [facility] [address] [place], [place] [phone] Ronald Mills MD 240 [facility] [address] [place] [address] documented as of this encounter Procedures Procedure Name Priority Date/Time Associated Diagnosis Comments US RESULT SCAN Routine 12/16/2015 documented in this encounter Results * US Result Scan (12/16/2015) us Provider External IMG SCAN REPORTS Edited Result - Final [facility] [place], [place], [facility] documented in this encounter Visit Diagnoses Not on filedocumented in this encounter Additional Health Concerns Infection Onset Date Last Indicated Resolved Time COVID-19 03/05/2022 03/05/2022 03/15/2022 7:18 PM EDT documented as of this encounter Care Teams Basket Bottom Machine Operator Relationship Specialty Start Date End Date Caitlyn Bowie MD 34[address] [facility] [address] [place] [address] PCP - General Internal Medicine 05/06/21 Henry Kelly MD Pulmonary Department 175 [facility], [address] [place] [address] Physician Pulmonary Disease 09/06/17 06/22/20 documented as of this encounter
--- OUTSIDE RECORDS SUMMARY | 2024-08-08 14:49 | XMS_ITS | Encounter Summary ---
Author Organization [facility] and [facility] Address [address] [place] [address] Care Team Providers Care Stretcher And Drier Name Role Phone Caitlyn Bowie MD Primary Care Provider +1- [phone] Encounter Details Date Type Department Care Team (Late st Contact Info) Description 09/01/2023 Scanned Document INTERFACE DEFAULT [address] [place] [address] System, Provider Not In Social History Tobacco [...] Healthcare [facility] 240 [facility] [address] [place] [address] Ronald Mills MD [address] [place] [address] [address] [place] [address] documented as of this encounter Visit Diagnoses Not on filedocumented in this encounter Additional Health Concerns Assessment Noted Time PHQ-9 Depression Total Score: 2 11/07/19 19 2:06 PM EDT documented as of this encounter Care Teams Stretcher And Drier Relationship Specialty Start Date End Date Caitlyn Bowie MD [address] [address] PCP - General Internal Medicine 05/06/21 documented as of this encounter
--- OUTSIDE RECORDS SUMMARY | 2024-08-08 14:49 | XMS_ITS | Encounter Summary ---
Author Organization [facility] Address [address] [place] [address] Care Team Providers Care Psychiatric Mental Health Nurse Name Role Phone Caitlyn Bowie MD Primary Care Provider +1- [phone] Reason for Visit * Reason Comments Triage extream dry skin Encounter Details Date Type Department Care Team ([facility] st Contact Info) Description 05/12/2023 Telephone Medical Dermatology at [address] [address] Augustine Vargas MD [address] [place] [phone] Triage (extream dry skin) Social History Tobacco Use Types Packs/Day Years [...] encounter Miscellaneous Notes * Telephone Encounter - Shilpi Romero RN - 05/15/2023 2:36 PM EST Followed up Jovana Malik related to her pictures that she was going to e-mail out to our office.She stated that she will send them tomorrow. * Telephone Encounter - Shilpi Romero RN - 05/15/2023 9:17 AM EST Spoke at length to Jovana Malik about her skin and how it is peeling, dry and uncomfortable. Reviewed the suggestions made to her by Dr. Vargas at the [facility]. Requested that she send pictures which will be shared with Dr. Vargas once they arrive. * Telephone Encounter - Chely Aparicio - 05/12/2023 12:39 PM EDT Pt called stating that when she last saw Dr Vargas in Feb he told her to try OTC creams. Nothinghas seemed to work and her skin is a lot worse. So bad that skin get caught on fabric. Her legs below the knee and around her stomach also. Wants to know if there's something the can prescribe. [phone] documented in this encounter Plan of Treatment Upcoming Encounters Date Type Department Care Team (Late st Contact Info) Description 10/31/2024 1:00 PM EDT Telemedicine [facility] 240 [facility] [address] [place], [place] [address] Ronald Mills MD [address] [place] [address] [address] [place] [address] documented as of this encounter Visit Diagnoses Not on filedocumented in this encounter Additional Health Concerns Assessment Noted Time PHQ-9 Depression Total Score: 2 11/07/19 19 2:06 PM EDT documented as of this encounter Care Teams Psychiatric Mental Health Nurse Relationship Specialty Start Date End Date Caitlyn Bowie MD [address] [address] PCP - General Internal Medicine 05/06/21 documented as of this encounter
--- OUTSIDE RECORDS SUMMARY | 2024-08-08 14:49 | XMS_ITS | Encounter Summary ---
Author Organization [facility] Address [address] [place] [address] Care Team Providers Care Final Cigar And Box Examiner Name Role Phone Pcp, No Primary Care Provider Brennan Mario MD Primary Care Provider [phone] Caitlyn Bowie MD Primary Care Provider +1- [phone] Encounter Details Date Type Department Care Team (Late st Contact Info) Description 01/04/2022 Scanned Document [facility] Neurology Ophthalmology [address] [address] Yary Whitten DO [address] [place] [address] Social History Tobacco Use Types Packs/Day [...] on filedocumented in this encounter Care Teams Final Cigar And Box Examiner Relationship Specialty Start Date End Date Pcp, No PCP - General General Medicine 10/04/21 07/18/22 Brennan Burnett MD [address] [place] [address] PCP - General 07/19/22 03/19/23 Caitlyn Bowie MD [address]00 [place] [address] PCP - General Internal Medicine 03/20/23 documented as of this encounter
--- OUTSIDE RECORDS SUMMARY | 2024-08-08 14:49 | XMS_ITS | Encounter Summary ---
Author Organization [facility] and [facility] Address [address] [place] [address] Care Team Providers Care Technical Training Coordinator Name Role Phone Caitlyn Bowie MD Primary Care Provider +1- [phone] Encounter Details Date Type Department Care Team (Late st Contact Info) Description 04/19/2023 Scanned Document INTERFACE DEFAULT [address] [place] [address] System, Provider Not In Social History Tobacco [...] [facility] 240 [facility] Building [address] [place], [place] [phone] Ronald Mills MD [address] [place] [address] [address] [place] [address] documented as of this encounter Procedures Procedure Name Priority Date/Time Associated Diagnosis Comments CT RESULT SCAN 04/19/2023 12:[address] RESULT SCAN 04/19/2023 12:00 AM EDT CARDIAC EKG RESULT SCAN 04/19/2023 12:00 AM EDT documented in this encounter Results * CARDIAC EKG RESULT SCAN (04/19/2023 12:00 AM EDT) us Provider Not In System CV CARDIAC REPORT (CVR) F inal Result * CT RESULT SCAN (04/19/2023 12:00 AM EDT) us Provider Not In System IMG SCAN REPORTS Final Re sult * CT RESULT SCAN (04/19/2023 12:00 AM EDT) us Provider Not In System IMG SCAN REPORTS Final Re sult documented in this encounter Visit Diagnoses Not on filedocumented in this encounter Additional Health Concerns Assessment Noted Time PHQ-9 Depression Total Score: 2 11/07/19 19 2:06 PM EDT documented as of this encounter Care Teams Technical Training Coordinator Relationship Specialty Start Date End Date Caitlyn Bowie MD [address] [address] PCP - General Internal Medicine 05/06/21 documented as of this encounter
--- OUTSIDE RECORDS SUMMARY | 2024-08-08 14:49 | XMS_ITS | Encounter Summary ---
Author Organization [facility] Address [address] [place] [address] Care Team Providers Care Hot Plate Plywood Press Feeder Name Role Phone Caitlyn Bowie MD Primary Care Provider +1- [phone] Encounter Details Date Type Department Care Team (Late st Contact Info) Description 05/10/2022 Scanned Document Cardiovascular Medicine at [address] [place] [phone] Norma Renee MD [address] [place] [phone] Social History Tobacco Use Types Packs/Day Years [...] PM EDT Telemedicine Cancer Center at [address] [place] [address] Ronald Mills MD [address] [place] [address] [address] [place] [address] documented as of this encounter Visit Diagnoses Not on filedocumented in this encounter Additional Health Concerns Assessment Noted Time PHQ-9 Depression Total Score: 2 11/07/19 19 2:06 PM EDT documented as of this encounter Care Teams Hot Plate Plywood Press Feeder Relationship Specialty Start Date End Date Caitlyn Bowie MD [address] [address] PCP - General Internal Medicine 05/06/21 documented as of this encounter
--- OUTSIDE RECORDS SUMMARY | 2024-08-08 14:49 | XMS_ITS | Encounter Summary ---
Author Organization [facility] and [facility] Address [address] [place] [address] Care Team Providers Care Handbag Parts Cutter Name Role Phone Caitlyn Bowie MD Primary Care Provider +1- [phone] Encounter Details Date Type Department Care Team (Late st Contact Info) Description 12/03/2015 Scanned Document [facility] Health Information Management [address] [place] [address] External, Provider Social History Tobacco Use Types [...] [facility] 240 [facility] Building [address] [place], [place] [id number] Ronald Mills MD 240 [facility] [address] [place] [address] documented as of this encounter Procedures Procedure Name Priority Date/Time Associated Diagnosis Comments LAB SCAN Routine 12/03/2015 documented in this encounter Results * Lab Scan (12/03/2015) Blood specimen (specimen) us Provider External LAB BLOOD ORDERABLES Edited Re sult - Final [facility] documented in this encounter Visit Diagnoses Not on filedocumented in this encounter Additional Health Concerns Infection Onset Date Last Indicated Resolved Time COVID-19 03/05/2022 03/05/2022 03/15/2022 7:18 PM EDT documented as of this encounter Care Teams Handbag Parts Cutter Relationship Specialty Start Date End Date Caitlyn Bowie MD 3400 [facility] 1 [place] [address] PCP - General Internal Medicine 05/06/21 Henry Kelly MD Pulmonary Department 175 [facility], [address] [place] [address] Physician Pulmonary Disease 09/06/17 06/22/20 documented as of this encounter
--- OUTSIDE RECORDS SUMMARY | 2024-08-08 14:49 | XMS_ITS | Encounter Summary ---
Author Organization [facility] Address [address] [place] [address] Care Team Providers Care Paper Box Cutter Name Role Phone Caitlyn Bowie MD Primary Care Provider +1- [phone] Encounter Details Date Type Department Care Team (Late st Contact Info) Description 04/20/2023 Scanned Document INTERFACE DEFAULT [address] [place] [address] System, Provider Not In Social History Tobacco [...] [facility] 240 [facility] [address] [place], [place] [phone] Ronald Mills MD [address] [place] [address] [address] [place] [address] documented as of this encounter Procedures Procedure Name Priority Date/Time Associated Diagnosis Comments LAB SCAN 04/20/2023 12:00 AM EDT documented in this encounter Results * LAB SCAN (04/20/2023 12:00 AM EDT) us Provider Not In System LAB BLOOD ORDERABLES Carmina l Result documented in this encounter Visit Diagnoses Not on filedocumented in this encounter Additional Health Concerns Assessment Noted Time PHQ-9 Depression Total Score: 2 11/07/19 19 2:06 PM EDT documented as of this encounter Care Teams Paper Box Cutter Relationship Specialty Start Date End Date Caitlyn Bowie MD [address] [address] PCP - General Internal Medicine 05/06/21 documented as of this encounter
--- OUTSIDE RECORDS SUMMARY | 2024-08-08 14:49 | XMS_ITS | Encounter Summary ---
Author Organization [facility] and [facility] Address [address] [place] [address] Care Team Providers Care Film Flat Inspector Name Role Phone Caitlyn Bowie MD Primary Care Provider +1- [phone] Encounter Details Date Type Department Care Team (Late st Contact Info) Description 11/03/2015 Scanned Document [facility] Health Information Management [address] [place] [address] External, Provider Social History Tobacco Use Types [...] [facility] 240 [facility] Building [address] [place], [place] [phone] Ronald Mills MD 240 [facility] [address] [place] [address] documented as of this encounter Procedures Procedure Name Priority Date/Time Associated Diagnosis Comments US RESULT SCAN Routine 11/03/2015 documented in this encounter Results * US Result Scan (11/03/2015) us Provider External IMG SCAN REPORTS Edited Result - Final [facility] [place], [place], [facility] documented in this encounter Visit Diagnoses Not on filedocumented in this encounter Additional Health Concerns Infection Onset Date Last Indicated Resolved Time COVID-19 03/05/2022 03/05/2022 03/15/2022 7:18 PM EDT documented as of this encounter Care Teams Film Flat Inspector Relationship Specialty Start Date End Date Caitlyn Bowie MD 34[address] [facility] [address] [place] [address] PCP - General Internal Medicine 05/06/21 Henry Kelly MD Pulmonary Department 175 [facility], [address] [place] [address] Physician Pulmonary Disease 09/06/17 06/22/20 documented as of this encounter
--- OUTSIDE RECORDS SUMMARY | 2024-08-08 14:49 | XMS_ITS | Encounter Summary ---
Author Organization [facility] Address [address] [place] [address] Care Team Providers Care Front Line Supervisor Name Role Phone Caitlyn Bowie MD Primary Care Provider +1- [phone] Encounter Details Date Type Department Care Team (Late Contact Info) Description 04/12/2022 Scanned Document [facility] Health Information Management [address] [place] [address] External, Provider Social History Tobacco Use Types [...] Telemedicine [facility] at [facility] 240 [facility] Building [address] [place], [place] [phone] Ronald Mills MD [address] [place] [address] [address] [place] [address] documented as of this encounter Procedures Procedure Name Priority Date/Time Associated Diagnosis Comments XRAY RESULT SCAN Routine 04/12/2022 documented in this encounter Results * Xray Result Scan (04/12/2022) us Provider External IMG SCAN REPORTS Final Result documented in this encounter Visit Diagnoses Not on filedocumented in this encounter Additional Health Concerns Assessment Noted Time PHQ-9 Depression Total Score: 2 11/07/19 19 2:06 PM EDT documented as of this encounter Care Teams Front Line Supervisor Relationship Specialty Start Date End Date Caitlyn Bowie MD [address] [address] PCP - General Internal Medicine 05/06/21 documented as of this encounter
--- OUTSIDE RECORDS SUMMARY | 2024-08-08 14:49 | XMS_ITS | Encounter Summary ---
Author Organization [facility] and [facility] Address [address] [place] [address] Care Team Providers Care Fuel Cell Repairer Name Role Phone Caitlyn Bowie MD Primary Care Provider +1- [phone] Encounter Details Date Type Department Care Team (Late st Contact Info) Description 05/16/2023 Scanned Document INTERFACE DEFAULT [address] [place] [address] System, Provider Not In Social History Tobacco [...] Telemedicine [facility] at [facility] 240 [facility] Building [address] [place], [place] [address] Ronald Mills MD [address] [place] [address] [address] [place] [address] documented as of this encounter Procedures Procedure Name Priority Date/Time Associated Diagnosis Comments NUC MED/PET RESULT SCAN 05/16/2023 12:00 AM EST documented in this encounter Results * NUC MED/PET RESULT SCAN (05/16/2023 12:00 AM EST) us Provider Not In System IMG SCAN REPORTS Final Re sult documented in this encounter Visit Diagnoses Not on filedocumented in this encounter Additional Health Concerns Assessment Noted Time PHQ-9 Depression Total Score: 2 11/07/19 19 2:06 PM EDT documented as of this encounter Care Teams Fuel Cell Repairer Relationship Specialty Start Date End Date Caitlyn Bowie MD [address] [address] PCP - General Internal Medicine 05/06/21 documented as of this encounter
--- OUTSIDE RECORDS SUMMARY | 2024-08-08 14:49 | XMS_ITS | Encounter Summary ---
Author Organization [facility] Address [address] [place] [address] Care Team Providers Care Skeiner Name Role Phone Caitlyn Bowie MD Primary Care Provider +1- [phone] Encounter Details Date Type Department Care Team (Late st Contact Info) Description 05/17/2023 Scanned Document INTERFACE DEFAULT [address] [place] [address] System, Provider Not In Social History Tobacco [...] [facility] 240 [facility] Building [address] [place], [place] [address] Ronald Mills MD [address] [place] [address] [address] [place] [address] documented as of this encounter Procedures Procedure Name Priority Date/Time Associated Diagnosis Comments LAB SCAN 05/17/2023 12:00 AM EST LAB SCAN 05/17/2023 12:00 AM EST LAB SCAN 05/17/2023 12:00 AM EST LAB SCAN 05/17/2023 12:00 AM EST LAB SCAN 05/17/2023 12:00 AM EST documented in this encounter Results * LAB SCAN (05/17/2023 12:00 AM EST) us Provider Not In System LAB BLOOD ORDERABLES Carmina l Result * LAB SCAN (05/17/2023 12:00 AM EST) us Provider Not In System LAB BLOOD ORDERABLES Carmina l Result * LAB SCAN (05/17/2023 12:00 AM EST) us Provider Not In System LAB BLOOD ORDERABLES Carmina l Result * LAB SCAN (05/17/2023 12:00 AM EST) us Provider Not In System LAB BLOOD ORDERABLES Carmina l Result * LAB SCAN (05/17/2023 12:00 AM EST) us Provider Not In System LAB BLOOD ORDERABLES Carmina l Result documented in this encounter Visit Diagnoses Not on filedocumented in this encounter Additional Health Concerns Assessment Noted Time PHQ-9 Depression Total Score: 2 11/07/19 19 2:06 PM EDT documented as of this encounter Care Teams Skeiner Relationship Specialty Start Date End Date Caitlyn Bowie MD [address] [address] PCP - General Internal Medicine 05/06/21 documented as of this encounter
--- OUTSIDE RECORDS SUMMARY | 2024-08-08 14:49 | XMS_ITS | Encounter Summary ---
Author Organization [facility] Address [address] [place] [address] Care Team Providers Care Tin Container Straightener Name Role Phone Caitlyn Bowie MD Primary Care Provider +1- [phone] Encounter Details Date Type Department Care Team (Late st Contact Info) Description 09/09/2015 Scanned Document [facility] Health Information Management [address] [place] [address] External, Provider Social History Tobacco Use Types [...] – [facility] 240 [facility] Building [address] [place], [place] [phone] Ronald Mills MD 240 [facility] [address] [place] [address] documented as of this encounter Procedures Procedure Name Priority Date/Time Associated Diagnosis Comments LAB SCAN Routine 09/09/2015 documented in this encounter Results * Lab Scan (09/09/2015) Blood specimen (specimen) us Provider External LAB BLOOD ORDERABLES Final Res ult [facility] documented in this encounter Visit Diagnoses Not on filedocumented in this encounter Additional Health Concerns Infection Onset Date Last Indicated Resolved Time COVID-19 03/05/2022 03/05/2022 03/15/2022 7:18 PM EDT documented as of this encounter Care Teams Tin Container Straightener Relationship Specialty Start Date End Date Caitlyn Bowie MD 3400 [facility] 1 [place] [address] PCP - General Internal Medicine 05/06/21 Henry Kelly MD Pulmonary Department 175 [facility], [address] [place] [address] Physician Pulmonary Disease 09/06/17 06/22/20 documented as of this encounter
--- OUTSIDE RECORDS SUMMARY | 2024-08-08 14:49 | XMS_ITS | Encounter Summary ---
Author Organization [facility] Address [address] [place] [address] Care Team Providers Care Medical Orderly Name Role Phone Caitlyn Bowie MD Primary Care Provider +1- [phone] Encounter Details Date Type Department Care Team (Late st Contact Info) Description 04/25/2022 Scanned Document INTERFACE DEFAULT [address] [place] [address] System, Provider Not In Social History Tobacco [...] [facility] 240 [facility] [address] [place] [address] Ronald Mills MD [address] [place] [address] [address] [place] [address] documented as of this encounter Visit Diagnoses Not on filedocumented in this encounter Additional Health Concerns Assessment Noted Time PHQ-9 Depression Total Score: 2 11/07/19 19 2:06 PM EDT documented as of this encounter Care Teams Medical Orderly Relationship Specialty Start Date End Date Caitlyn Bowie MD [address] [address] PCP - General Internal Medicine 05/06/21 documented as of this encounter
--- OUTSIDE RECORDS SUMMARY | 2024-08-08 14:49 | XMS_ITS | Encounter Summary ---
Author Organization [facility] Address [address] [place] [address] Care Team Providers Care Housekeeping Supervisor Name Role Phone Caitlyn Bowie MD Primary Care Provider +1- [phone] Encounter Details Date Type Department Care Team (Late st Contact Info) Description 01/08/2022 Scanned Document INTERFACE DEFAULT [address] [place] [address] System, Provider Not In Social History Tobacco [...] [facility] 240 [facility] Building [address] [place], [place] [phone] Ronald Mills MD [address] [place] [address] [address] [place] [address] documented as of this encounter Procedures Procedure Name Priority Date/Time Associated Diagnosis Comments CT RESULT SCAN 01/08/2022 12:00 AM EDT documented in this encounter Results * CT RESULT SCAN (01/08/2022 12:00 AM EDT) 01/08/2022 us Provider Not In System IMG SCAN REPORTS Final Re sult documented in this encounter Visit Diagnoses Not on filedocumented in this encounter Additional Health Concerns Infection Onset Date Last Indicated Resolved Time COVID-19 03/05/2022 03/05/2022 03/15/2022 7:18 PM EDT Assessment Noted Time PHQ-9 Depression Total Score: 2 11/07/19 19 2:06 PM EDT documented as of this encounter Care Teams Housekeeping Supervisor Relationship Specialty Start Date End Date Caitlyn Bowie MD [address] [address] PCP - General Internal Medicine 05/06/21 documented as of this encounter
--- OUTSIDE RECORDS SUMMARY | 2024-08-08 14:49 | XMS_ITS | Encounter Summary ---
Author Organization [facility] and [facility] Address [address] [place] [address] Care Team Providers Care Control Inspector Name Role Phone Caitlyn Bowie MD Primary Care Provider +1- [phone] Encounter Details Date Type Department Care Team (Late st Contact Info) Description 04/13/2023 Scanned Document INTERFACE DEFAULT [address] [place] [address] System, Provider Not In Social History Tobacco [...] Center at [facility] 240 [facility] [address] [place] [address] Ronald Mills MD [address] [place] [address] [address] [place] [address] documented as of this encounter Procedures Procedure Name Priority Date/Time Associated Diagnosis Comments US RESULT SCAN 04/13/2023 12:00 AM EDT documented in this encounter Results * US RESULT SCAN (04/13/2023 12:00 AM EDT) us Provider Not In System IMG SCAN REPORTS Final Re sult documented in this encounter Visit Diagnoses Not on filedocumented in this encounter Additional Health Concerns Assessment Noted Time PHQ-9 Depression Total Score: 2 11/07/19 19 2:06 PM EDT documented as of this encounter Care Teams Control Inspector Relationship Specialty Start Date End Date Caitlyn Bowie MD [address] [address] PCP - General Internal Medicine 05/06/21 documented as of this encounter
--- OUTSIDE RECORDS SUMMARY | 2024-08-08 14:49 | XMS_ITS | Encounter Summary ---
Author Organization [facility] and [facility] Address [address] [place] [address] Care Team Providers Care Anesthesiology Crna Name Role Phone Caitlyn Bowie MD Primary Care Provider +1- [phone] Encounter Details Date Type Department Care Team (Late st Contact Info) Description 04/22/2022 Scanned Document INTERFACE DEFAULT [address] [place] [address] System, Provider Not In Social History Tobacco [...] Telemedicine [facility] at [facility] 240 [facility] [address] [place], [place] [id number] Ronald Mills MD [address] [place] [address] [address] [place] [address] documented as of this encounter Procedures Procedure Name Priority Date/Time Associated Diagnosis Comments LAB SCAN 04/22/2022 12:00 AM EDT documented in this encounter Results * LAB SCAN (04/22/2022 12:00 AM EDT) 04/22/2022 us Provider Not In System LAB BLOOD ORDERABLES Edit ed Result - Final documented in this encounter Visit Diagnoses Not on filedocumented in this encounter Additional Health Concerns Assessment Noted Time PHQ-9 Depression Total Score: 2 11/07/19 19 2:06 PM EDT documented as of this encounter Care Teams Anesthesiology Crna Relationship Specialty Start Date End Date Caitlyn Bowie MD [address] [address] PCP - General Internal Medicine 05/06/21 documented as of this encounter
--- OUTSIDE RECORDS SUMMARY | 2024-08-08 14:49 | XMS_ITS | Encounter Summary ---
Author Organization [facility] and [facility] Address [address] [place] [address] Care Team Providers Care Oil Pipe Inspector Name Role Phone Caitlyn Bowie MD Primary Care Provider +1- [phone] Encounter Details Date Type Department Care Team (Late st Contact Info) Description 04/11/2019 Scanned Document [facility] Health Information Management [address] [place] [address] External, Provider Social History Tobacco Use Types [...] Center at [facility] 240 [facility] [address] [place] [address] Ronald Mills MD [address] [place] [address] [address] [place] [address] documented as of this encounter Procedures Procedure Name Priority Date/Time Associated Diagnosis Comments US RESULT SCAN Routine 04/11/2019 documented in this encounter Results * US Result Scan (04/11/2019) us Provider External IMG SCAN REPORTS Final Result documented in this encounter Visit Diagnoses Not on filedocumented in this encounter Additional Health Concerns Infection Onset Date Last Indicated Resolved Time COVID-19 03/05/2022 03/05/2022 03/15/2022 7:18 PM EDT Assessment Noted Time PHQ-9 Depression Total Score: 2 11/07/19 19 2:06 PM EDT documented as of this encounter Care Teams Oil Pipe Inspector Relationship Specialty Start Date End Date Caitlyn Bowie MD 3400 [facility] 1 [place] [address] PCP - General Internal Medicine 05/06/21 Henry Kelly MD Pulmonary Department 175 [facility], [address] [place] [address] Physician Pulmonary Disease 09/06/17 06/22/20 documented as of this encounter
--- OUTSIDE RECORDS SUMMARY | 2024-08-08 14:49 | XMS_ITS | Encounter Summary ---
Author Organization [facility] and [facility] Address [address] [place] [address] Care Team Providers Care Social Work Specialist Name Role Phone Caitlyn Bowie MD Primary Care Provider +1- [phone] Encounter Details Date Type Department Care Team (Late st Contact Info) Description 04/22/2019 Scanned Document [facility] Health Information Management [address] [place] [address] External, Provider Social History Tobacco Use Types [...] [facility] 240 [facility] Building [address] [place] [address] Ronald Mills MD [address] [place] [address] [address] [place] [address] documented as of this encounter Visit Diagnoses Not on filedocumented in this encounter Additional Health Concerns Infection Onset Date Last Indicated Resolved Time COVID-19 03/05/2022 03/05/2022 03/15/2022 7:18 PM EDT Assessment Noted Time PHQ-9 Depression Total Score: 2 11/07/19 19 2:06 PM EDT documented as of this encounter Care Teams Social Work Specialist Relationship Specialty Start Date End Date Caitlyn Bowie MD 3400 [facility] 1 [place] [address] PCP - General Internal Medicine 05/06/21 Henry Kelly MD Pulmonary Department 175 [facility], [address] [place] [address] Physician Pulmonary Disease 09/06/17 06/22/20 documented as of this encounter
--- OUTSIDE RECORDS SUMMARY | 2024-08-08 14:49 | XMS_ITS | Encounter Summary ---
Author Organization [facility] and [facility] Address [address] [place] [address] Care Team Providers Care Black Leather Buffer Name Role Phone Caitlyn Bowie MD Primary Care Provider +1- [phone] Encounter Details Date Type Department Care Team (Late st Contact Info) Description 12/04/2018 Scanned Document [facility] Health Information Management [address] [place] [address] External, Provider Social History Tobacco Use Types [...] [facility] 240 [facility] Building [address] [place], [place] [phone] Ronald Mills MD 240 [facility] A1 [place] [address] documented as of this encounter Visit Diagnoses Not on filedocumented in this encounter Additional Health Concerns Infection Onset Date Last Indicated Resolved Time COVID-19 03/05/2022 03/05/2022 03/15/2022 7:18 PM EDT Assessment Noted Time PHQ-9 Depression Total Score: 2 11/07/19 19 2:06 PM EDT documented as of this encounter Care Teams Black Leather Buffer Relationship Specialty Start Date End Date Caitlyn Bowie MD 3400 [facility] [address] 1 [place] [address] PCP - General Internal Medicine 05/06/21 Henry Kelly MD Pulmonary Department 175 [facility], [address] [place] [address] Physician Pulmonary Disease 09/06/17 06/22/20 documented as of this encounter
--- OUTSIDE RECORDS SUMMARY | 2024-08-08 14:49 | XMS_ITS | Encounter Summary ---
Author Organization [facility] and [facility] Address [address] [place] [address] Care Team Providers Care Food Service Team Member Name Role Phone Caitlyn Bowie MD Primary Care Provider +1- [phone] Encounter Details Date Type Department Care Team (Late st Contact Info) Description 04/12/2022 Scanned Document INTERFACE DEFAULT [address] [place] [address] System, Provider Not In Social History Tobacco [...] Telemedicine Cancer Center at [facility] 240 [facility] Building [address] [place] [address] Ronald Mills MD [address] [place] [address] [address] [place] [address] documented as of this encounter Procedures Procedure Name Priority Date/Time Associated Diagnosis Comments XRAY RESULT SCAN 04/12/2022 12:00 AM EDT CARDIAC EKG RESULT SCAN 04/12/2022 12:00 AM EDT documented in this encounter Results * CARDIAC EKG RESULT SCAN (04/12/2022 12:00 AM EDT) 04/12/2022 us Provider Not In System CV CARDIAC REPORT (CVR) F inal Result * XRAY RESULT SCAN (04/12/2022 12:00 AM EDT) 04/12/2022 us Provider Not In System IMG SCAN REPORTS Edited R esult - Final documented in this encounter Visit Diagnoses Not on filedocumented in this encounter Additional Health Concerns Assessment Noted Time PHQ-9 Depression Total Score: 2 11/07/19 19 2:06 PM EDT documented as of this encounter Care Teams Food Service Team Member Relationship Specialty Start Date End Date Caitlyn Bowie MD [address] [address] PCP - General Internal Medicine 05/06/21 documented as of this encounter
--- OUTSIDE RECORDS SUMMARY | 2024-08-08 14:49 | XMS_ITS | Encounter Summary ---
Author Organization [facility] and [facility] Address [address] [place] [address] Care Team Providers Care Chef Under Name Role Phone Caitlyn Bowie MD Primary Care Provider +1- [phone] Encounter Details Date Type Department Care Team (Latest Contact Info) Description 12/25/2015 Transcribed Orders [facility] Draw Station 35 [facility] [place] [address] Osmel Briscoe MD Other abnormality of red blood cells (Primary Dx); Other nonspecific findings on examination of blood(790.99); Localized osteoporosis of [place]; SAPHO syndrome (HC Code); Dietary iron deficiency without anemia; Other and unspecified hyperlipidemia Social History Tobacco Use Types Packs/Day Years [...] 1:00 PM EDT Telemedicine Cancer Center at [address] [place], [place] [phone] Ronald Mills MD [address] [place] [address] [address]1 [place] [address] documented as of this encounter Results * Free kappa lambda with ratio, serum ( GH Q YH) (12/25/2015 10:09 AM EDT) Ig [place] Free Light Chain 1.84 0.33 - 1.94 mg/dL [facility] Ig Lambda Free Light Chain 1.96 0.57 - 2.63 mg/dL [facility] [place]/Lambda FLC Ratio 0.94 0.26 - 1.65 [facility] Blood specimen (specimen) 12/25/2015 10:09 AM EDT Result [facility] Osmel Briscoe MD LAB BLOOD ORDERABLES Final R esult Performing Organization Address [facility] Co de Phone Number [facility] [address] [place] [address] * Immunofixation, serum ( L Q YH) (12/25/2015 10:09 AM EDT) [facility] Immunofixation Electrophoresis Gel See below See Interp. [facility] Comment: INTERPRETATION: Normal immunofixation electrophoresis. No evidence of a serum monoclonal component. SIGNED BY:Keyur KAYE MD ON 12/29/2015 14:56:04 INTERPRETATION REVIEW : I have reviewed these results and agree with this interpretation. Blood specimen (specimen) 12/25/2015 10:09 AM EDT Osmel Briscoe MD LAB BLOOD ORDERABLES Final R esult Performing Organization Address [facility] Co de Phone Number [facility] [address] [place] [phone] * (ABNORMAL) Protein electrophoresis, serum ( GH L YH) (12/25/2015 10:09 AM EDT) Albumin Electrophoresis 3.45(L) 3.50 - 4.70 g/dL [facility] Uayvn-1-Vnqvnzhh 0.16 0.10 - 0.30 g/dL [facility] Cpvip-3-Iocddtte 0.81 0.60 - 1.00 g/dL [facility] Beta Globulin 0.86 0.70 - 1.20 g/dL [facility] Gamma Globulin 0.92 0.70 - 1.50 g/dL [facility] SPEP Interpretation See below See Interp. [facility] Comment: INTERPRETATION: No discrete abnormal bands. Recommend correlation with concomitant serum immunofixation electrophoresis (MARTINA). If monoclonal gammopathy remains a clinical consideration, recommend serum free light chains assay. SIGNED BY:Keyur KAYE MD ON 12/30/2015 15:44:57 INTERPRETATION REVIEW : I have reviewed these results and agree with this interpretation. Blood specimen (specimen) 12/25/2015 10:09 AM EDT Osmel Briscoe MD LAB BLOOD ORDERABLES Final R esult Performing Organization Address [facility] Co de Phone Number [facility] [address] [place] [phone] * Reticulocytes (GH L Q YH) (12/25/2015 10:09 AM EDT) Reticulocyte Count 2.1 0.6 - 2.7 % [facility] Blood specimen (specimen) 12/25/2015 10:09 AM EDT Osmel Briscoe MD LAB BLOOD ORDERABLES Final R esult Performing Organization Address [facility] Co de Phone Number [facility] [address] [place] [address] * (ABNORMAL) Sedimentation rate (ESR) (12/25/2015 10:09 AM EDT) Sed Rate 27(H) 0 - 20 mm/hr [facility] Blood specimen (specimen) 12/25/2015 10:09 AM EDT us Osmel Briscoe MD LAB BLOOD ORDERABLES Final R esult Performing Organization Address [facility] Co de Phone Number [facility] [address] [place] [address] * Ferritin (12/25/2015 10:09 AM EDT) Ferritin 68 9 - 120 ng/mL [facility] Blood specimen (specimen) 12/25/2015 10:09 AM EDT Osmel Briscoe MD LAB BLOOD ORDERABLES Final R esult Performing Organization Address [facility] Co de Phone Number [facility] [address] [place] [phone] * Iron and TIBC (12/25/2015 10:09 AM EDT) Iron 110 50 - 170 ug/dL [facility] TIBC 290 250 - 450 ug/dL [facility] Iron Saturation 38 15 - 50 [facility] Blood specimen (specimen) 12/25/2015 10:09 AM EDT Osmel Briscoe MD LAB BLOOD ORDERABLES Final R esult Performing Organization Address [facility] Co de Phone Number [facility] [address] [place] [address] * Vitamin D 25 hydroxy (BH L YH) (12/25/2015 10:09 AM EDT) Vit D, 25-Hydroxy 43 20 - 50 ng/mL [facility] Comment: A serum 25(OH) vitamin D concentration of at least 20 ng/mL is necessary to prevent secondary hyperparathyroidism. For reducing fracture risk or optimizing skeletal muscle function, higher serum 25(OH) vitamin D values, in the range of 30 ng/mL, are thought to be optimal. Blood specimen (specimen) 12/25/2015 10:09 AM EDT Osmel Briscoe MD LAB BLOOD ORDERABLES Final R esult Performing Organization Address City/[facility]/ZIP Co de Phone Number [facility] [address] [place] [address] * TSH (BH L YH) (12/25/2015 10:09 AM EDT) TSH cancelled 0.3 - 4.2 uU/mL [facility] TSH 1.62 0.3 - 4.2 uU/mL [facility] Comment:This test is a third generation TSH assay. Blood specimen (specimen) 12/25/2015 10:09 AM EDT Osmel Briscoe MD LAB BLOOD ORDERABLES Final R esult Performing Organization Address [facility] Co de Phone Number [facility] [address] [place] [phone] * (ABNORMAL) CBC and differential (12/25/2015 10:09 AM EDT) Pathologist [facility] CBC with Differential See Below [facility] WBC 9.9 4.0 - 10.0 x 1000/uL [facility] RBC 4.0 3.8 - 5.2 M/uL [facility] Hemoglobin 13.4 12.0 - 16.0 g/dL [facility] Hematocrit 41.0 37.0 - 47.0 % [facility] MCV 101(H) 78 - 94 fL [facility] MCH 33.2(H) 27.0 - 33.0 pg [facility] MCHC 32.8(L) 33.0 - 37.0 g/dL [facility] RDW 12.5 10.8 - 14.5 % [facility] Platelets 265 150 - 350 x 1000/uL [facility] MPV 7.2 6.0 - 10.0 fL [facility] Neutrophils 82(H) 38 - 71 % [facility] Lymphocytes 7(L) 14 - 46 % [facility] Monocytes 10 2 - 15 % [facility] Eosinophils 1 0 - 5 % [facility] Basophils 0 0 - 2 % [facility] ANC (Abs Neutrophil Count) 8.1 1.0 - 9.0 x 1000/uL [facility] Absolute Lymphocyte Count 0.7 0.6 - 4.6 x 1000/uL [facility] Blood specimen (specimen) ARM NEC / Unknown 12/25/2015 10:09 AM EDT us Osmel Briscoe MD LAB BLOOD ORDERABLES Final R esult [facility] [address] [place] [address] documented in this encounter Visit Diagnoses Diagnosis Other abnormality of red blood cells- Primary Other nonspecific findings on examination of blood(790.99) Other nonspecific findings on examination of blood Localized osteoporosis of [place] Other osteoporosis SAPHO syndrome (HC Code) Traumatic spondylopathy Dietary iron deficiency without anemia Other disorders of iron metabolism Other and unspecified hyperlipidemia documented in this encounter Additional Health Concerns Infection Onset Date Last Indicated Resolved Time COVID-19 03/05/2022 03/05/2022 03/15/2022 7:18 PM EDT documented as of this encounter Care Teams Chef Under Relationship Specialty Start Date End Date Caitlyn Bowie MD [address] [address] PCP - General Internal Medicine 05/06/21 Henry Kelly MD Pulmonary Department 175 [facility], [address] [place] [address] Physician Pulmonary Disease 09/06/17 06/22/20 documented as of this encounter
--- OUTSIDE RECORDS SUMMARY | 2024-08-08 14:49 | XMS_ITS | Encounter Summary ---
Author Organization [facility] and [facility] Address [address] [place] [phone] Care Team Providers Care Fence Rider Name Role Phone Caitlyn Bowie MD Primary Care Provider +1- [phone] Encounter Details Date Type Department Care Team (Late st Contact Info) Description 03/02/2022 Scanned Document [facility] Health Information Management [address] [place] [phone] External, Provider Social History Tobacco Use Types [...] [facility] 240 [facility] Building [address] [place], [place] [phone] Ronald Mills MD [address] [place] [address] [address] [place] [address] documented as of this encounter Visit Diagnoses Not on filedocumented in this encounter Additional Health Concerns Infection Onset Date Last Indicated Resolved Time COVID-19 03/05/2022 03/05/2022 03/15/2022 7:18 PM EDT Assessment Noted Time PHQ-9 Depression Total Score: 2 11/07/19 19 2:06 PM EDT documented as of this encounter Care Teams Fence Rider Relationship Specialty Start Date End Date Caitlyn Bowie MD [address] [address] PCP - General Internal Medicine 05/06/21 documented as of this encounter
--- OUTSIDE RECORDS SUMMARY | 2024-08-08 14:49 | XMS_ITS | Encounter Summary ---
Author Organization [facility] and [facility] Address [address] [place] [phone] Care Team Providers Care Bridge Crew Member Name Role Phone Caitlyn Bowie MD Primary Care Provider +1- [phone] Encounter Details Date Type Department Care Team (Late st Contact Info) Description 04/16/2022 Scanned Document INTERFACE DEFAULT [address] [place] [phone] System, Provider Not In Social History Tobacco [...] [facility] 240 [facility] Building [address] [place], [place] [id number] Ronald Mills MD [address] [place] [address] [address] [place] [address] documented as of this encounter Procedures Procedure Name Priority Date/Time Associated Diagnosis Comments CT SUBSEQUENT LUNG CANCER SCREENING 04/16/2022 12:00 AM EDT documented in this encounter Results * CT SUBSEQUENT LUNG CANCER SCREENING (04/16/2022 12:00 AM EDT) Anatomical Region Laterality Modality Chest, Lung Computed Tomogra phy 04/16/2022 us Provider Not In System IMG CT ORDERABLES Final R esult documented in this encounter Visit Diagnoses Not on filedocumented in this encounter Additional Health Concerns Assessment Noted Time PHQ-9 Depression Total Score: 2 11/07/19 19 2:06 PM EDT documented as of this encounter Care Teams Bridge Crew Member Relationship Specialty Start Date End Date Caitlyn Bowie MD [address] [address] PCP - General Internal Medicine 05/06/21 documented as of this encounter
--- OUTSIDE RECORDS SUMMARY | 2024-08-08 14:49 | XMS_ITS | Encounter Summary ---
Author Organization [facility] and [facility] Address [address] [place] [address] Care Team Providers Care Tap Out Operator Name Role Phone Caitlyn oBwie MD Primary Care Provider +1- [phone] Encounter Details Date Type Department Care Team (Late st Contact Info) Description 12/06/2018 Scanned Document [facility] Health Information Management [address] [place] [phone] External, Provider Social History Tobacco Use Types [...] [facility] at [facility] 240 [facility] Building [address] [place], [place] [id number] Ronald Mills MD 240 [facility] [address] [place] [address] documented as of this encounter Procedures Procedure Name Priority Date/Time Associated Diagnosis Comments XRAY RESULT SCAN Routine 12/06/2018 documented in this encounter Results * Xray Result Scan (12/06/2018) us Provider External IMG SCAN REPORTS Final Result documented in this encounter Visit Diagnoses Not on filedocumented in this encounter Additional Health Concerns Infection Onset Date Last Indicated Resolved Time COVID-19 03/05/2022 03/05/2022 03/15/2022 7:18 PM EDT Assessment Noted Time PHQ-9 Depression Total Score: 2 11/07/19 19 2:06 PM EDT documented as of this encounter Care Teams Tap Out Operator Relationship Specialty Start Date End Date Caitlyn Bowie MD 3400 [facility] 1 [place] [address] PCP - General Internal Medicine 05/06/21 Henry Kelly MD Pulmonary Department 175 [facility], [address] [place] [address] Physician Pulmonary Disease 09/06/17 06/22/20 documented as of this encounter
--- OUTSIDE RECORDS SUMMARY | 2024-08-08 14:49 | XMS_ITS | Encounter Summary ---
Author Organization [facility] and [facility] Address [address] [place] [address] Care Team Providers Care Forestry Pilot Name Role Phone Caitlyn Bowie MD Primary Care Provider +1- [phone] Encounter Details Date Type Department Care Team (Late st Contact Info) Description 04/14/2022 Scanned Document INTERFACE DEFAULT [address] [place] [address] System, Provider Not In Social History Tobacco [...] Affairs [facility] 240 [facility] [address] [place] [address] Ronald Mills MD [address] [place] [address] [address] [place] [address] documented as of this encounter Visit Diagnoses Not on filedocumented in this encounter Additional Health Concerns Assessment Noted Time PHQ-9 Depression Total Score: 2 11/07/19 19 2:06 PM EDT documented as of this encounter Care Teams Forestry Pilot Relationship Specialty Start Date End Date Caitlyn Bowie MD [address] [address] PCP - General Internal Medicine 05/06/21 documented as of this encounter
--- OUTSIDE RECORDS SUMMARY | 2024-08-08 14:49 | XMS_ITS | Encounter Summary ---
Author Organization [facility] Address [address] [place] [address] Care Team Providers Care Truck Driver Supervisor Name Role Phone Caitlyn Bowie MD Primary Care Provider +1- [phone] Encounter Details Date Type Department Care Team (Late st Contact Info) Description 12/29/2021 Telephone [facility] at [address] - [address] [address] Ronald Mills MD [address] [place] [address] Social History Tobacco Use Types Packs/Day [...] Telephone Encounter - Taya Nuno RN - 12/29/2021 3:33 PM EDT Spoke with pt. She was assessed at home today by a primary care provider. No source of bleeding wasfound. INR is within therapeutic range. Pt has been on CPAP for years, no recent change in settings. Will continue to monitor and refer to ENT if needed. * Telephone Encounter - Chely Aparicio - 12/29/2021 7:49 AM EDT Pt called to report that when she woke up this morning and found big amount of blood on her pillow,there was blood below her R ear, she wears a c pap and when she took it off this morning it looked like her lips were lined with blood. She would like to discuss this as soon as possible this morning, she's not sure where the blood's coming from. [phone] documented in this encounter Plan of Treatment Upcoming Encounters Date Type Department Care Team (Late st Contact Info) Description 10/31/2024 1:00 PM EDT Telemedicine Cancer [facility] at [facility] 240 [facility] Building [address] [place] [address] Ronald Mills MD 240 [facility] A1 [place] [phone] documented as of this encounter Visit Diagnoses Not on filedocumented in this encounter Additional Health Concerns Infection Onset Date Last Indicated Resolved Time COVID-19 03/05/2022 03/05/2022 03/15/2022 7:18 PM EDT Assessment Noted Time PHQ-9 Depression Total Score: 2 11/07/19 19 2:06 PM EDT documented as of this encounter Care Teams Truck Driver Supervisor Relationship Specialty Start Date End Date Caitlyn Bowie MD [address] [address] PCP - General Internal Medicine 05/06/21 documented as of this encounter
--- OUTSIDE RECORDS SUMMARY | 2024-08-08 14:49 | XMS_ITS | Encounter Summary ---
Author Organization [facility] Address [address] [place] [address] Care Team Providers Care Transfill Technician Name Role Phone Caitlyn Bowie MD Primary Care Provider +1- [phone] Encounter Details Date Type Department Care Team (Late st Contact Info) Description 03/20/2023 Scanned Document [facility] [address] [place] [address] Caitlyn Bowie MD [address] [place] [address] Social History Tobacco Use Types Packs/Day Years [...] on filedocumented in this encounter Care Teams Transfill Technician Relationship Specialty Start Date End Date Caitlyn Bowie MD [address] [place] [address] PCP - General Internal Medicine 03/20/23 documented as of this encounter
--- OUTSIDE RECORDS SUMMARY | 2024-08-08 14:49 | XMS_ITS | Encounter Summary ---
Author Organization [facility] and [facility] Address [address] [place] [address] Care Team Providers Care Lining Setter Name Role Phone Caitlyn Bowie MD Primary Care Provider +1- [phone] Encounter Details Date Type Department Care Team (Late st Contact Info) Description 09/28/2015 Scanned Document [facility] Health Information Management [address] [place] [address] External, Provider Social History Tobacco Use Types [...] Cancer Center at [facility] 240 [facility] Building [address] [place], [place] [phone] Ronald Mills MD 240 [facility] [address] [place] [address] documented as of this encounter Procedures Procedure Name Priority Date/Time Associated Diagnosis Comments LAB SCAN Routine 09/09/2015 documented in this encounter Results * Lab Scan (09/09/2015) Blood specimen (specimen) us Provider External LAB BLOOD ORDERABLES Final Res ult [facility] documented in this encounter Visit Diagnoses Not on filedocumented in this encounter Additional Health Concerns Infection Onset Date Last Indicated Resolved Time COVID-19 03/05/2022 03/05/2022 03/15/2022 7:18 PM EDT documented as of this encounter Care Teams Lining Setter Relationship Specialty Start Date End Date Caitlyn Bowie MD 3400 [facility] 1 [place] [address] PCP - General Internal Medicine 05/06/21 Henry Kelly MD Pulmonary Department 175 [facility], [address] [place] [address] Physician Pulmonary Disease 09/06/17 06/22/20 documented as of this encounter
--- OUTSIDE RECORDS SUMMARY | 2024-08-08 14:49 | XMS_ITS | Encounter Summary ---
Author Organization [facility] and [facility] Address [address] [place] [address] Care Team Providers Care Dry Cell Assembly Supervisor Name Role Phone Caitlyn Bowie MD Primary Care Provider +1- [phone] Reason for Visit * Reason Comments Results Encounter Details Date Type Department Care Team (Late st Contact Info) Description 03/15/2022 Telephone [facility] at [address] [address] Ronald Mills MD [address] [place] [phone] Results Social History Tobacco Use Types Packs/Day Years [...] Telephone Encounter - Kirstin Travis RN - 03/15/2022 6:19 PM EDT We do not manage patient's INR. Dr. Mills reached out to patient directly via email. * Telephone Encounter - Supriya Maria - 03/15/2022 9:42 AM EDT Patient of Dr Mills Calling to report INR reading for this morning is 3.7. Pt concerned. Please call to follow up. Thanks documented in this encounter Plan of Treatment Upcoming Encounters Date Type Department Care Team (Late st Contact Info) Description 10/31/2024 1:00 PM EDT Telemedicine Cancer Center at [facility] 240 [facility] Building [address] [place], [place] [phone] Ronald Mills MD 240 [facility] [address] [place] [phone] documented as of this encounter Visit Diagnoses Not on filedocumented in this encounter Additional Health Concerns Infection Onset Date Last Indicated Resolved Time COVID-19 03/05/2022 03/05/2022 03/15/2022 7:18 PM EDT Assessment Noted Time PHQ-9 Depression Total Score: 2 11/07/19 19 2:06 PM EDT documented as of this encounter Care Teams Dry Cell Assembly Supervisor Relationship Specialty Start Date End Date Caitlyn Bowie MD [address] [address] PCP - General Internal Medicine 05/06/21 documented as of this encounter
--- OUTSIDE RECORDS SUMMARY | 2024-08-08 14:49 | XMS_ITS | Encounter Summary ---
Author Organization [facility] and [facility] Address [address] [place] [address] Care Team Providers Care Leather Whitener Name Role Phone Caitlyn Bowie MD Primary Care Provider +1- [phone] Encounter Details Date Type Department Care Team (Late st Contact Info) Description 12/01/2015 Scanned Document [facility] Health Information Management [address] [place] [address] External, Provider Social History Tobacco Use Types [...] – [facility] 240 [facility] Building [address] [place], [place] [phone] Ronald Mills MD 240 [facility] [address] [place] [address] documented as of this encounter Procedures Procedure Name Priority Date/Time Associated Diagnosis Comments CT RESULT SCAN Routine 12/01/2015 documented in this encounter Results * CT Result Scan (12/01/2015) us Provider External IMG SCAN REPORTS Edited Result - Final [facility] [place], [place], [facility] documented in this encounter Visit Diagnoses Not on filedocumented in this encounter Additional Health Concerns Infection Onset Date Last Indicated Resolved Time COVID-19 03/05/2022 03/05/2022 03/15/2022 7:18 PM EDT documented as of this encounter Care Teams Leather Whitener Relationship Specialty Start Date End Date Caitlyn Bowie MD 3400 [facility] Max 1 [place] [address] PCP - General Internal Medicine 05/06/21 Henry Kelly MD Pulmonary Department 175 [facility], [address] [place] [address] Physician Pulmonary Disease 09/06/17 06/22/20 documented as of this encounter
--- OUTSIDE RECORDS SUMMARY | 2024-08-08 14:49 | XMS_ITS | Encounter Summary ---
Author Organization [facility] and [facility] Address [address] [place] [address] Care Team Providers Care Plasterer Rough Name Role Phone Caitlyn Bowie MD Primary Care Provider +1- [phone] Encounter Details Date Type Department Care Team (Late st Contact Info) Description 10/23/2018 Scanned Document [facility] Health Information Management [address] [place] [phone] External, Provider Social History Tobacco Use Types [...] Center at [facility] 240 [facility] Building [address] [place], [place] [phone] Ronald Mills MD 240 [facility] [address] [place] [address] documented as of this encounter Visit Diagnoses Not on filedocumented in this encounter Additional Health Concerns Infection Onset Date Last Indicated Resolved Time COVID-19 03/05/2022 03/05/2022 03/15/2022 7:18 PM EDT documented as of this encounter Care Teams Plasterer Rough Relationship Specialty Start Date End Date Caitlyn Bowie MD 3400 [facility] 1 [place] [address] PCP - General Internal Medicine 05/06/21 Henry Kelly MD Pulmonary Department 175 [facility], [address] [place] [address] Physician Pulmonary Disease 09/06/17 06/22/20 documented as of this encounter
--- OUTSIDE RECORDS SUMMARY | 2024-08-08 14:49 | XMS_ITS | Encounter Summary ---
Author Organization [facility] and [facility] Address [address] [place] [address] Care Team Providers Care Blueprint Maker Name Role Phone Caitlyn Bowie MD Primary Care Provider +1- [phone] Encounter Details Date Type Department Care Team (Late st Contact Info) Description 05/04/2022 Scanned Document INTERFACE DEFAULT [address] [place] [address] System, Provider Not In Social History Tobacco [...] at [facility] 240 [facility] [address] [place] [address] Ronald Mills MD [address] [place] [address] [address] [place] [address] documented as of this encounter Visit Diagnoses Not on filedocumented in this encounter Additional Health Concerns Assessment Noted Time PHQ-9 Depression Total Score: 2 11/07/19 19 2:06 PM EDT documented as of this encounter Care Teams Blueprint Maker Relationship Specialty Start Date End Date Caitlyn Bowie MD [address] [address] PCP - General Internal Medicine 05/06/21 documented as of this encounter
--- OUTSIDE RECORDS SUMMARY | 2024-08-08 14:49 | XMS_ITS | Encounter Summary ---
Author Organization [facility] and [facility] Address [address] [place] [phone] Care Team Providers Care Roller Billet Mill Name Role Phone Caitlyn Bowie MD Primary Care Provider +1- [phone] Encounter Details Date Type Department Care Team (Late st Contact Info) Description 04/28/2022 Scanned Document INTERFACE DEFAULT [address] [place] [address] System, Provider Not In Social History Tobacco [...] [facility] 240 [facility] Building [address] [place], [place] [phone] Ronald Mills MD [address] [place] [address] [address] [place] [address] documented as of this encounter Procedures Procedure Name Priority Date/Time Associated Diagnosis Comments PFT SCAN 04/28/2022 12:00 AM EDT PFT SCAN 04/28/2022 12:00 AM EDT documented in this encounter Results * PFT SCAN (04/28/2022 12:00 AM EDT) 04/28/2022 us Provider Not In System PFT ORDERABLES Final Res ult * PFT SCAN (04/28/2022 12:00 AM EDT) 04/28/2022 us Provider Not In System PFT ORDERABLES Final Res ult documented in this encounter Visit Diagnoses Not on filedocumented in this encounter Additional Health Concerns Assessment Noted Time PHQ-9 Depression Total Score: 2 11/07/19 19 2:06 PM EDT documented as of this encounter Care Teams Roller Billet Mill Relationship Specialty Start Date End Date Caitlyn Bowie MD [facility] [address] [address] PCP - General Internal Medicine 05/06/21 documented as of this encounter
--- OUTSIDE RECORDS SUMMARY | 2024-08-08 14:49 | XMS_ITS | Encounter Summary ---
Author Organization [facility] and [facility] Address [address] [place] [address] Care Team Providers Care Mechanical Integrity Engineer Name Role Phone Caitlyn Bowie MD Primary Care Provider +1- [phone] Encounter Details Date Type Department Care Team (Late st Contact Info) Description 09/24/2015 Scanned Document Digestive Diseases at 40 [facility] 40 [facility] [address] [place] [address] Kevin Espinoza MD [address] [place] [address] Social History Tobacco Use Types Packs/Day Years [...] 1:00 PM EDT Telemedicine Cancer Center at [address] [place], [place] [phone] Ronald Mills MD [address] [place] [address] [address] [place] [address] documented as of this encounter Visit Diagnoses Not on filedocumented in this encounter Additional Health Concerns Infection Onset Date Last Indicated Resolved Time COVID-19 03/05/2022 03/05/2022 03/15/2022 7:18 PM EDT documented as of this encounter Care Teams Mechanical Integrity Engineer Relationship Specialty Start Date End Date Caitlyn Bowie MD [address] [facility] 1 [place] [address] PCP - General Internal Medicine 05/06/21 Henry Kelly MD Pulmonary Department 175 [facility], [address] [place] [address] Physician Pulmonary Disease 09/06/17 06/22/20 documented as of this encounter
--- OUTSIDE RECORDS SUMMARY | 2024-08-08 14:49 | XMS_ITS | Encounter Summary ---
Author Organization [facility] Address [address] [place] [address] Care Team Providers Care Oil Well Driller Name Role Phone Caitlyn Bowie MD Primary Care Provider +1- [phone] Encounter Details Date Type Department Care Team (Late st Contact Info) Description 12/31/2015 Scanned Document [facility] [address] [place] [address] External, Provider Social History Tobacco Use Types [...] [facility] 240 [facility] Building [address] [place], [place] [phone] Ronald Mills MD [address] [place] [address] [address] [place] [address] documented as of this encounter Procedures Procedure Name Priority Date/Time Associated Diagnosis Comments LAB SCAN Routine 12/31/2015 documented in this encounter Results * Lab Scan (12/31/2015) Blood specimen (specimen) us Provider External LAB BLOOD ORDERABLES Final Res ult Performing Organization Address City/State/[facility] Co de Phone Number [facility] documented in this encounter Visit Diagnoses Not on filedocumented in this encounter Additional Health Concerns Infection Onset Date Last Indicated Resolved Time COVID-19 03/05/2022 03/05/2022 03/15/2022 7:18 PM EDT documented as of this encounter Care Teams Oil Well Driller Relationship Specialty Start Date End Date Caitlyn Bowie MD 3400 [facility] 1 [place] [address] PCP - General Internal Medicine 05/06/21 Henry Kelly MD Pulmonary Department 175 [facility], [address] [place] [address] Physician Pulmonary Disease 09/06/17 06/22/20 documented as of this encounter
--- OUTSIDE RECORDS SUMMARY | 2024-08-08 14:49 | XMS_ITS | Encounter Summary ---
Author Organization [facility] and [facility] Address [address] [place] [address] Care Team Providers Care Form Setter Helper Name Role Phone Caitlyn Bowie MD Primary Care Provider +1- [phone] Encounter Details Date Type Department Care Team (Late st Contact Info) Description 04/19/2022 Scanned Document INTERFACE DEFAULT [address] [place] [address] System, Provider Not In Social History Tobacco [...] [facility] 240 [facility] Building [address] [place] [address] Ronald Mills MD [address] [place] [address] [address] [place] [address] documented as of this encounter Procedures Procedure Name Priority Date/Time Associated Diagnosis Comments US RESULT SCAN 04/19/2022 12:00 AM EDT documented in this encounter Results * US RESULT SCAN (04/19/2022 12:00 AM EDT) 04/19/2022 us Provider Not In System IMG SCAN REPORTS Edited R esult - Final documented in this encounter Visit Diagnoses Not on filedocumented in this encounter Additional Health Concerns Assessment Noted Time PHQ-9 Depression Total Score: 2 11/07/19 19 2:06 PM EDT documented as of this encounter Care Teams Form Setter Helper Relationship Specialty Start Date End Date Caitlyn Bowie MD [address] [address] PCP - General Internal Medicine 05/06/21 documented as of this encounter
--- OUTSIDE RECORDS SUMMARY | 2024-08-08 14:49 | XMS_ITS | Encounter Summary ---
Author Organization [facility] and [facility] Address [address] [place] [address] Care Team Providers Care Administrative Law Judge Name Role Phone Caitlyn Bowie MD Primary Care Provider +1- [phone] Encounter Details Date Type Department Care Team (Late st Contact Info) Description 04/13/2022 Scanned Document INTERFACE DEFAULT [address] [place] [address] System, Provider Not In Social History Tobacco [...] [facility] 240 [facility] Building [address] [place], [place] [address] Ronald Mills MD [address] [place] [address] [address] [place] [address] documented as of this encounter Procedures Procedure Name Priority Date/Time Associated Diagnosis Comments CT RESULT SCAN 04/13/2022 12:00 AM EDT LAB SCAN 04/13/2022 12:00 AM EDT LAB SCAN 04/13/2022 12:00 AM EDT documented in this encounter Results * CT RESULT SCAN (04/13/2022 12:00 AM EDT) 04/13/2022 us Provider Not In System IMG SCAN REPORTS Edited R esult - Final * LAB SCAN (04/13/2022 12:00 AM EDT) 04/13/2022 us Provider Not In System LAB BLOOD ORDERABLES Carmina l Result * LAB SCAN (04/13/2022 12:00 AM EDT) 04/13/2022 us Provider Not In System LAB BLOOD ORDERABLES Carmina l Result documented in this encounter Visit Diagnoses Not on filedocumented in this encounter Additional Health Concerns Assessment Noted Time PHQ-9 Depression Total Score: 2 11/07/19 19 2:06 PM EDT documented as of this encounter Care Teams Administrative Law Judge Relationship Specialty Start Date End Date Caitlyn Bowie MD [address] [address] PCP - General Internal Medicine 05/06/21 documented as of this encounter
--- OUTSIDE RECORDS SUMMARY | 2024-08-08 14:50 | XMS_ITS | Encounter Summary ---
Author Organization [facility] and [facility] Address [address] [place] [address] Care Team Providers Care Industrial Registered Nurse Name Role Phone Caitlyn Bowie MD Primary Care Provider +1- [phone] Encounter Details Date Type Department Care Team (Late st Contact Info) Description 10/10/2016 Scanned Document [facility] Health Information Management [address] [place] [phone] External, Provider Social History Tobacco Use Types [...] at [facility] 240 [facility] Building [address] [place], [place] [phone] Ronald Mills MD 240 [facility] A1 [place] [address] documented as of this encounter Visit Diagnoses Not on filedocumented in this encounter Additional Health Concerns Infection Onset Date Last Indicated Resolved Time COVID-19 03/05/2022 03/05/2022 03/15/2022 7:18 PM EDT documented as of this encounter Care Teams Industrial Registered Nurse Relationship Specialty Start Date End Date Caitlyn Bowie MD 3400 [facility] 1 [place] [address] PCP - General Internal Medicine 05/06/21 Henry Kelly MD Pulmonary Department 175 [facility], [address] [place] [address] Physician Pulmonary Disease 09/06/17 06/22/20 documented as of this encounter
--- OUTSIDE RECORDS SUMMARY | 2024-08-08 14:50 | XMS_ITS | Encounter Summary ---
Author Organization [facility] and [facility] Address [address] [place] [address] Care Team Providers Care Medical Biller Name Role Phone Caitlyn Bowie MD Primary Care Provider +1- [phone] Encounter Details Date Type Department Care Team (Late st Contact Info) Description 07/27/2016 Scanned Document Thoracic Oncology Program at [address] [address] Suzy Kong MD [address] [place] [address] Social History Tobacco Use Types Packs/Day [...] 1:00 PM EDT Telemedicine Cancer Center at [address] [place], [place] [phone] Ronald Mills MD 240 [facility] [address] [place] [address] documented as of this encounter Visit Diagnoses Not on filedocumented in this encounter Additional Health Concerns Infection Onset Date Last Indicated Resolved Time COVID-19 03/05/2022 03/05/2022 03/15/2022 7:18 PM EDT documented as of this encounter Care Teams Medical Biller Relationship Specialty Start Date End Date Caitlyn Bowie MD 3400 [facility] Max 1 [place] [address] PCP - General Internal Medicine 05/06/21 Henry Kelly MD Pulmonary Department 175 [facility], [address] [place] [address] Physician Pulmonary Disease 09/06/17 06/22/20 documented as of this encounter
--- OUTSIDE RECORDS SUMMARY | 2024-08-08 14:50 | XMS_ITS | Encounter Summary ---
Author Organization [facility] Address [address] [place] [address] Care Team Providers Care Hospitality Ambassador Name Role Phone Cristofer Hope MD Primary Care Provider Victorino Read MD Primary Care Provider Unavaila Sharon Rios Primary Care Provider Unava ilable Brennan Burnett MD Primary Care Provider Unavailab Brennan Salmeron MD Primary Care Provider Unavailab Hayden Montes MD Unavailable [phone] Pallavi Flood NP Unavailable [phone]- [phone] Caitlyn Bowie MD Primary Care Provider Unava ilable Reason for Visit * Reason Onset Date Comments Wheezing 05/15/2017 Encounter Details Date Type Department Care Team Description 05/15/2017 Telephone Pulmonology - [address] [place] [address] Henry Kelly MD Wheezing Social History Tobacco Use Types Packs/Day Years Used Date Smoking Tobacco: Never Assessed Physical Activity Answer Date Recorded On average, [...] Telephone Encounter - Henry Kelly MD - 05/15/2017 4:58 PM EST CALLED. Left a message. I told her that we could see her at 11am. Book her for 11am and comfirm with her tomorrow. * Telephone Encounter - Maryse Iqbal M.A. - 05/15/2017 3:12 PM EST Forward to to advise. * Telephone Encounter - Suzy Josue - 05/15/2017 2:45 PM EST Symptoms patient is presenting: Wheezing with cough If pain or injury related was it due to an accident at work or from a motor vehicle accident? NO If yes, gather [employer] insurance information Date of accident/Injury: NA How long has patient had these symptoms?: x 3 days PCP: KIET MONIQUE No account information available. documented in this encounter Plan of Treatment Not on file documented as of this encounter Visit Diagnoses Not on filedocumented in this encounter Care Teams Hospitality Ambassador Relationship Specialty Start Date End Date Cristofer Hope MD PCP - General Internal Medicine 05/16/17 12/20/17 Victorino Martin MD PCP - General Internal Medicine 12/21/17 08/01/18 Sharon Vides PCP - General Internal Medicine 08/02/18 05/26/20 Brennan Burnett MD PCP - General Internal Medicine 05/27/20 12/07/21 Brennan Burnett MD PCP - General 05/30/12 05/15/17 Caitlyn [address] MD [address] [place] [address] PCP - General Internal Medicine 12/08/21 Hayden Shah MD [address] [place] [address] Specialist Cardiovascular Disease 09/01/20 Pallavi Flood, ALON [address] [place] [address] Cardiology 09/01/20 documented as of this encounter
--- OUTSIDE RECORDS SUMMARY | 2024-08-08 14:50 | XMS_ITS | Encounter Summary ---
Author Organization [facility] and [facility] Address [address] [place] [address] Care Team Providers Care Tucking Machine Operator Name Role Phone Caitlyn Bowie MD Primary Care Provider [phone]- [phone] Encounter Details Date Type Department Care Team (Late st Contact Info) Description 06/17/2016 Scanned Document [facility] Health Information Management [address] [place] [address] External, Provider Social History Tobacco Use Types [...] – [facility] 240 [facility] [address] [place], [place] [id number] Ronald Mills MD 240 [facility] [address] [place] [address] documented as of this encounter Procedures Procedure Name Priority Date/Time Associated Diagnosis Comments XRAY RESULT SCAN Routine 06/17/2016 documented in this encounter Results * Xray Result Scan (06/17/2016) us Provider External IMG SCAN REPORTS Final Result [facility] [place], [place], [facility] documented in this encounter Visit Diagnoses Not on filedocumented in this encounter Additional Health Concerns Infection Onset Date Last Indicated Resolved Time COVID-19 03/05/2022 03/05/2022 03/15/2022 7:18 PM EDT documented as of this encounter Care Teams Tucking Machine Operator Relationship Specialty Start Date End Date Caitlyn Bowie MD 34[address] [facility] 1 [place] [address] PCP - General Internal Medicine 05/06/21 Henry Kelly MD Pulmonary Department [address] [place] [address], [address] [place] [address] Physician Pulmonary Disease 09/06/17 06/22/20 documented as of this encounter
--- OUTSIDE RECORDS SUMMARY | 2024-08-08 14:50 | XMS_ITS | Encounter Summary ---
Author Organization [facility] and [facility] Address [address] [place] [address] Care Team Providers Care Yarn Polishing Machine Operator Name Role Phone Caitlyn Bowie MD Primary Care Provider +1- [phone] Encounter Details Date Type Department Care Team (Late st Contact Info) Description 04/19/2024 Scanned Document INTERFACE DEFAULT [address] [place] [address] System, Provider Not In Social History Tobacco [...] at [facility] 240 [facility] Building [address] [place], [place] [phone] Ronald Mills MD [address] [place] [address] [address] [place] [address] documented as of this encounter Procedures Procedure Name Priority Date/Time Associated Diagnosis Comments LAB SCAN 04/19/2024 12:00 AM EDT LAB SCAN 04/19/2024 12:00 AM EDT documented in this encounter Results * LAB SCAN (04/19/2024 12:00 AM EDT) us Provider Not In System LAB BLOOD ORDERABLES Carmina l Result * LAB SCAN (04/19/2024 12:00 AM EDT) us Provider Not In System LAB BLOOD ORDERABLES Carmina l Result documented in this encounter Visit Diagnoses Not on filedocumented in this encounter Additional Health Concerns Assessment Noted Time PHQ-9 Depression Total Score: 2 11/07/19 19 2:06 PM EDT documented as of this encounter Care Teams Yarn Polishing Machine Operator Relationship Specialty Start Date End Date Caitlyn Bowie MD [address] [address] PCP - General Internal Medicine 05/06/21 documented as of this encounter
--- OUTSIDE RECORDS SUMMARY | 2024-08-08 14:50 | XMS_ITS | Encounter Summary ---
Author Organization [facility] and [facility] Address [address] [place] [address] Care Team Providers Care Engineering And Development Director Name Role Phone Caitlyn Bowie MD Primary Care Provider +1- [phone] Encounter Details Date Type Department Care Team (Late st Contact Info) Description 07/27/2016 Scanned Document Thoracic Oncology Program at [address] [address] Suzy Kong MD [address] [place] [phone] Social History Tobacco Use Types Packs/Day [...] 1:00 PM EDT Telemedicine Cancer Center at [address] [place], [place] [phone] Ronald Mills MD 240 [facility] [address] [place] [address] documented as of this encounter Visit Diagnoses Not on filedocumented in this encounter Additional Health Concerns Infection Onset Date Last Indicated Resolved Time COVID-19 03/05/2022 03/05/2022 03/15/2022 7:18 PM EDT documented as of this encounter Care Teams Engineering And Development Director Relationship Specialty Start Date End Date Caitlyn Bowie MD 3400 [facility] [address] 1 [place] [address] PCP - General Internal Medicine 05/06/21 Henry Kelly MD Pulmonary Department 175 [facility], [address] [place] [address] Physician Pulmonary Disease 09/06/17 06/22/20 documented as of this encounter
--- OUTSIDE RECORDS SUMMARY | 2024-08-08 14:50 | XMS_ITS | Encounter Summary ---
Author Organization [facility] and [facility] Address [address] [place] [address] Care Team Providers Care Director Of Community Life Name Role Phone Caitlyn Bowie MD Primary Care Provider +1- [phone] Encounter Details Date Type Department Care Team (Late st Contact Info) Description 02/06/2019 Scanned Document [facility] Health Information Management [address] [place] [address] External, Provider Social History Tobacco Use Types [...] [facility] 240 [facility] [address] [place] [address] Ronald Mills MD [address] [place] [address] [address] [place] [address] documented as of this encounter Procedures Procedure Name Priority Date/Time Associated Diagnosis Comments US RESULT SCAN Routine 02/06/2019 documented in this encounter Results * US Result Scan (02/06/2019) us Provider External IMG SCAN REPORTS Final Result documented in this encounter Visit Diagnoses Not on filedocumented in this encounter Additional Health Concerns Infection Onset Date Last Indicated Resolved Time COVID-19 03/05/2022 03/05/2022 03/15/2022 7:18 PM EDT Assessment Noted Time PHQ-9 Depression Total Score: 2 11/07/19 19 2:06 PM EDT documented as of this encounter Care Teams Director Of Community Life Relationship Specialty Start Date End Date Caitlyn Bowie MD 3400 [facility] 1 [place] [address] PCP - General Internal Medicine 05/06/21 Henry Kelly MD Pulmonary Department 175 [facility], [address] [place] [address] Physician Pulmonary Disease 09/06/17 06/22/20 documented as of this encounter
--- OUTSIDE RECORDS SUMMARY | 2024-08-08 14:50 | XMS_ITS | Encounter Summary ---
Author Organization [facility] Address [address] [place] [address] Care Team Providers Care Appraiser Real Estate Name Role Phone Caitlyn Bowie MD Primary Care Provider +1- [phone] Encounter Details Date Type Department Care Team (Late st Contact Info) Description 03/12/2019 Scanned Document [facility] Health Information Management [address] [place] [address] External, Provider Social History Tobacco Use Types [...] at [facility] 240 [facility] Building [address] [place] [address] Ronald Mills MD [address] [place] [address] [address] [place] [address] documented as of this encounter Procedures Procedure Name Priority Date/Time Associated Diagnosis Comments US RESULT SCAN Routine 03/12/2019 documented in this encounter Results * US Result Scan (03/12/2019) us Provider External IMG SCAN REPORTS Final Result documented in this encounter Visit Diagnoses Not on filedocumented in this encounter Additional Health Concerns Infection Onset Date Last Indicated Resolved Time COVID-19 03/05/2022 03/05/2022 03/15/2022 7:18 PM EDT Assessment Noted Time PHQ-9 Depression Total Score: 2 11/07/19 19 2:06 PM EDT documented as of this encounter Care Teams Appraiser Real Estate Relationship Specialty Start Date End Date Caitlyn Bowie MD 3400 [facility] 1 [place] [address] PCP - General Internal Medicine 05/06/21 Henry Kelly MD Pulmonary Department 175 [facility], [address] [place] [address] Physician Pulmonary Disease 09/06/17 06/22/20 documented as of this encounter
--- OUTSIDE RECORDS SUMMARY | 2024-08-08 14:50 | XMS_ITS | Encounter Summary ---
Author Organization [facility] and [facility] Address [address] [place] [address] Care Team Providers Care Blog Writer Name Role Phone Caitlyn Bowie MD Primary Care Provider +1- [phone] Encounter Details Date Type Department Care Team (Late st Contact Info) Description 01/08/2019 Scanned Document [facility] Health Information Management [address] [place] [address] External, Provider Social History Tobacco Use Types [...] at [facility] 240 [facility] [address] [place] [address] Ronald Mills MD [address] [place] [address] [address] [place] [address] documented as of this encounter Procedures Procedure Name Priority Date/Time Associated Diagnosis Comments US RESULT SCAN Routine 01/08/2019 documented in this encounter Results * US Result Scan (01/08/2019) us Provider External IMG SCAN REPORTS Final Result documented in this encounter Visit Diagnoses Not on filedocumented in this encounter Additional Health Concerns Infection Onset Date Last Indicated Resolved Time COVID-19 03/05/2022 03/05/2022 03/15/2022 7:18 PM EDT Assessment Noted Time PHQ-9 Depression Total Score: 2 11/07/19 19 2:06 PM EDT documented as of this encounter Care Teams Blog Writer Relationship Specialty Start Date End Date Caitlyn Bowie MD 3400 [facility] 1 [place] [address] PCP - General Internal Medicine 05/06/21 Henry Kelly MD Pulmonary Department 175 [facility], [address] [place] [address] Physician Pulmonary Disease 09/06/17 06/22/20 documented as of this encounter
--- OUTSIDE RECORDS SUMMARY | 2024-08-08 14:50 | XMS_ITS | Encounter Summary ---
Author Organization [facility] and [facility] Address [address] [place] [address] Care Team Providers Care Residency Coordinator Name Role Phone Caitlyn Bowie MD Primary Care Provider +1- [phone] Encounter Details Date Type Department Care Team (Late st Contact Info) Description 01/02/2019 Scanned Document [facility] Health Information Management [address] [place] [address] External, Provider Social History Tobacco Use Types [...] [facility] 240 [facility] [address] [place] [address] Ronald Mills MD [address] [place] [address] [address] [place] [address] documented as of this encounter Procedures Procedure Name Priority Date/Time Associated Diagnosis Comments LAB SCAN Routine 01/02/2019 documented in this encounter Results * Lab Scan (01/02/2019) Blood us Provider External LAB BLOOD ORDERABLES Final Res ult documented in this encounter Visit Diagnoses Not on filedocumented in this encounter Additional Health Concerns Infection Onset Date Last Indicated Resolved Time COVID-19 03/05/2022 03/05/2022 03/15/2022 7:18 PM EDT Assessment Noted Time PHQ-9 Depression Total Score: 2 11/07/19 19 2:06 PM EDT documented as of this encounter Care Teams Residency Coordinator Relationship Specialty Start Date End Date Caitlyn Bowie MD 3400 [facility] 1 [place] [address] PCP - General Internal Medicine 05/06/21 Henry Kelly MD Pulmonary Department 175 [facility], [address] [place] [address] Physician Pulmonary Disease 09/06/17 06/22/20 documented as of this encounter
--- OUTSIDE RECORDS SUMMARY | 2024-08-08 14:50 | XMS_ITS | Encounter Summary ---
Author Organization [facility] and [facility] Address [address] [place] [address] Care Team Providers Care Research Manufacturing Operator Name Role Phone Caitlyn Bowie MD Primary Care Provider +1- [phone] Encounter Details Date Type Department Care Team (Late st Contact Info) Description 07/08/2016 Scanned Document [facility] Health Information Management [address] [place] [address] External, Provider Social History Tobacco Use Types [...] – [facility] 240 [facility] Building [address] [place], [place] [phone] Ronald Mills MD 240 [facility] [address] [place] [address] documented as of this encounter Procedures Procedure Name Priority Date/Time Associated Diagnosis Comments LAB SCAN Routine 07/08/2016 documented in this encounter Results * Lab Scan (07/08/2016) Blood specimen (specimen) us Provider External LAB BLOOD ORDERABLES Final Res ult [facility] documented in this encounter Visit Diagnoses Not on filedocumented in this encounter Additional Health Concerns Infection Onset Date Last Indicated Resolved Time COVID-19 03/05/2022 03/05/2022 03/15/2022 7:18 PM EDT documented as of this encounter Care Teams Research Manufacturing Operator Relationship Specialty Start Date End Date Caitlyn Bowie MD 3400 [facility] 1 [place] [address] PCP - General Internal Medicine 05/06/21 Henry Kelly MD Pulmonary Department 175 [facility], [address] [place] [address] Physician Pulmonary Disease 09/06/17 06/22/20 documented as of this encounter
--- OUTSIDE RECORDS SUMMARY | 2024-08-08 14:50 | XMS_ITS | Encounter Summary ---
Author Organization [facility] and [facility] Address [address] [place] [address] Care Team Providers Care Supervisor Paste Mixing Name Role Phone Caitlyn Bowie MD Primary Care Provider +1- [phone] Encounter Details Date Type Department Care Team (Late st Contact Info) Description 01/28/2019 Scanned Document Cardiovascular Medicine at [address] [place] [address] Cristian Arreguin MBBS [address] [place] [address] Social History Tobacco Use Types Packs/Day Years [...] 1:00 PM EDT Telemedicine Cancer Center at [address] [place] [address] Ronald Mills MD [address] [place] [address] [address] [place] [address] documented as of this encounter Visit Diagnoses Not on filedocumented in this encounter Additional Health Concerns Infection Onset Date Last Indicated Resolved Time COVID-19 03/05/2022 03/05/2022 03/15/2022 7:18 PM EDT Assessment Noted Time PHQ-9 Depression Total Score: 2 11/07/19 19 2:06 PM EDT documented as of this encounter Care Teams Supervisor Paste Mixing Relationship Specialty Start Date End Date Caitlyn Bowie MD 3400 [facility] 1 [place] [address] PCP - General Internal Medicine 05/06/21 Henry Kelly MD Pulmonary Department [address] [place] [address], [address] [place] [address] Physician Pulmonary Disease 09/06/17 06/22/20 documented as of this encounter
--- OUTSIDE RECORDS SUMMARY | 2024-08-08 14:50 | XMS_ITS | Encounter Summary ---
Author Organization [facility] and [facility] Address [address] [place] [address] Care Team Providers Care Release Of Information Clerk Name Role Phone Caitlyn Bowie MD Primary Care Provider +1- [phone] Encounter Details Date Type Department Care Team (Late st Contact Info) Description 12/16/2016 Scanned Document [facility] Health Information Management [address] [place] [address] External, Provider Social History Tobacco Use Types [...] [facility] 240 [facility] Building [address] [place], [place] [address] Ronald Mills MD 240 [facility] [address] [place] [address] documented as of this encounter Procedures Procedure Name Priority Date/Time Associated Diagnosis Comments CT RESULT SCAN Routine 12/16/2016 documented in this encounter Results * CT Result Scan (12/16/2016) us Provider External IMG SCAN REPORTS Edited Result - Final documented in this encounter Visit Diagnoses Not on filedocumented in this encounter Additional Health Concerns Infection Onset Date Last Indicated Resolved Time COVID-19 03/05/2022 03/05/2022 03/15/2022 7:18 PM EDT documented as of this encounter Care Teams Release Of Information Clerk Relationship Specialty Start Date End Date Caitlyn Bowie MD 3400 [facility] 1 [place] [address] PCP - General Internal Medicine 05/06/21 Henry Kelly MD Pulmonary Department 175 [facility], [address] [place] [address] Physician Pulmonary Disease 09/06/17 06/22/20 documented as of this encounter
--- OUTSIDE RECORDS SUMMARY | 2024-08-08 14:50 | XMS_ITS | Encounter Summary ---
Author Organization [facility] Address [address] [place] [address] Care Team Providers Care Medical Asst Name Role Phone Caitlyn Bowie MD Primary Care Provider +1- [phone] Encounter Details Date Type Department Care Team (Late st Contact Info) Description 01/28/2019 Scanned Document [facility] Health Information Management [address] [place] [address] External, Provider Social History Tobacco Use Types [...] [facility] 240 [facility] Building [address] [place] [address] Ronald Mills MD [address] [place] [address] [address] [place] [address] documented as of this encounter Visit Diagnoses Not on filedocumented in this encounter Additional Health Concerns Infection Onset Date Last Indicated Resolved Time COVID-19 03/05/2022 03/05/2022 03/15/2022 7:18 PM EDT Assessment Noted Time PHQ-9 Depression Total Score: 2 11/07/19 19 2:06 PM EDT documented as of this encounter Care Teams Medical Asst Relationship Specialty Start Date End Date Caitlyn Bowie MD 3400 [facility] 1 [place] [address] PCP - General Internal Medicine 05/06/21 Henry Kelly MD Pulmonary Department 175 [facility], [address] [place] [address] Physician Pulmonary Disease 09/06/17 06/22/20 documented as of this encounter
--- OUTSIDE RECORDS SUMMARY | 2024-08-08 14:50 | XMS_ITS ---
Author Organization [employer] [facility] Address [address] [address] Care Team Providers Care Manufacturing Quality Manager Name Role Phone EVELIN RAMSAY Primary Care Provider Yenny Hou Unavailable [phone] REASON FOR VISIT [facility] ifect disease dept Encounters Encounter Location Date Provider Diagnosis [facility] [employer] [address] [address] 06/11/2024 Yenny Elizalde Plan Of Treatment No Information Progress Notes * ONOFRE WATSON:1945 (79 yo F)Acc No.[id number]:06/11/2024 Patient:?CINDA WATSON :1945???Age:79 Y???Sex:Female Address:[address] [place] [address], [address] * true * Date:? Generated for Arely paige/Sebastian/eTransmitting on:?08/08/2024 02:49 PM EST
--- OUTSIDE RECORDS SUMMARY | 2024-08-08 14:50 | XMS_ITS | Encounter Summary ---
Author Organization [facility] and [facility] Address [address] [place] [address] Care Team Providers Care Side Seam Machine Operator Name Role Phone Caitlyn Bowie MD Primary Care Provider +1- [phone] Encounter Details Date Type Department Care Team (Late st Contact Info) Description 01/26/2019 Scanned Document [facility] Health Information Management [address] [place] [address] External, Provider Social History Tobacco Use Types [...] at [facility] 240 [facility] Building [address] [place] [address] Ronald Mills MD [address] [place] [address] [address] [place] [address] documented as of this encounter Procedures Procedure Name Priority Date/Time Associated Diagnosis Comments US RESULT SCAN Routine 01/26/2019 XRAY RESULT SCAN Routine 01/26/2019 documented in this encounter Results * Xray Result Scan (01/26/2019) us Provider External IMG SCAN REPORTS Final Result * US Result Scan (01/26/2019) us Provider External IMG SCAN REPORTS Final Result documented in this encounter Visit Diagnoses Not on filedocumented in this encounter Additional Health Concerns Infection Onset Date Last Indicated Resolved Time COVID-19 03/05/2022 03/05/2022 03/15/2022 7:18 PM EDT Assessment Noted Time PHQ-9 Depression Total Score: 2 11/07/19 19 2:06 PM EDT documented as of this encounter Care Teams Side Seam Machine Operator Relationship Specialty Start Date End Date Caitlyn Bowie MD 3400 [facility] 1 [place] [address] PCP - General Internal Medicine 05/06/21 Henry Kelly MD Pulmonary Department 175 [facility], [address] [place] [address] Physician Pulmonary Disease 09/06/17 06/22/20 documented as of this encounter
--- OUTSIDE RECORDS SUMMARY | 2024-08-08 14:50 | XMS_ITS | Encounter Summary ---
Author Organization [facility] and [facility] Address [address] [place] [address] Care Team Providers Care Personal Secretary Name Role Phone Caitlyn Bowie MD Primary Care Provider +1- [phone] Encounter Details Date Type Department Care Team (Late st Contact Info) Description 01/13/[address] [facility] Health Information Management [address] [place] [address] External, Provider Social History Tobacco Use Types [...] [facility] [address] [facility] [address] [place] [address] Ronald Mills MD [address] [place] [address] [address] [place] [address] documented as of this encounter Procedures Procedure Name Priority Date/Time Associated Diagnosis Comments LAB SCAN Routine 01/13/2019 documented in this encounter Results * Lab Scan (01/13/2019) Blood us Provider External LAB BLOOD ORDERABLES Final Res ult documented in this encounter Visit Diagnoses Not on filedocumented in this encounter Additional Health Concerns Infection Onset Date Last Indicated Resolved Time COVID-19 03/05/2022 03/05/2022 03/15/2022 7:18 PM EDT Assessment Noted Time PHQ-9 Depression Total Score: 2 11/07/19 19 2:06 PM EDT documented as of this encounter Care Teams Personal Secretary Relationship Specialty Start Date End Date Caitlyn Bowie MD [address] [facility] 1 [place] [address] PCP - General Internal Medicine 05/06/21 Henry Kelly MD Pulmonary Department 175 [facility], [address] [place] [address] Physician Pulmonary Disease 09/06/17 06/22/20 documented as of this encounter
--- OUTSIDE RECORDS SUMMARY | 2024-08-08 14:50 | XMS_ITS | Encounter Summary ---
Author Organization [facility] and [facility] Address [address] [place] [address] Care Team Providers Care Fruit And Vegetable Parer Name Role Phone Caitlyn Bowie MD Primary Care Provider +1- [phone] Encounter Details Date Type Department Care Team (Late st Contact Info) Description 01/30/2019 Scanned Document [facility] Health Information Management [address] [place] [address] External, Provider Social History Tobacco Use Types [...] [facility] [address] [place] [address] Ronald Mills MD [address] [place] [address] [address] [place] [address] documented as of this encounter Procedures Procedure Name Priority Date/Time Associated Diagnosis Comments NUC MED/PET RESULT SCAN Routine 01/30/2019 documented in this encounter Results * Nuc Med/PET Result Scan (01/30/2019) us Provider External IMG SCAN REPORTS Final Result documented in this encounter Visit Diagnoses Not on filedocumented in this encounter Additional Health Concerns Infection Onset Date Last Indicated Resolved Time COVID-19 03/05/2022 03/05/2022 03/15/2022 7:18 PM EDT Assessment Noted Time PHQ-9 Depression Total Score: 2 11/07/19 19 2:06 PM EDT documented as of this encounter Care Teams Fruit And Vegetable Parer Relationship Specialty Start Date End Date Caitlyn Bowie MD [address] [facility] 1 [place] [address] PCP - General Internal Medicine 05/06/21 Henry Kelly MD Pulmonary Department 175 [facility], [address] [place] [address] Physician Pulmonary Disease 09/06/17 06/22/20 documented as of this encounter
--- OUTSIDE RECORDS SUMMARY | 2024-08-08 14:50 | XMS_ITS | Encounter Summary ---
Author Organization [facility] and [facility] Address [address] [place] [address] Care Team Providers Care Charge Account Identification Clerk Name Role Phone Caitlyn Bowie MD Primary Care Provider +1- [phone] Encounter Details Date Type Department Care Team (Late st Contact Info) Description 02/08/2016 Scanned Document [facility] Health Information Management [address] [place] [address] External, Provider Social History Tobacco Use Types [...] at [facility] [address] [facility] Building [address] [place], [place] [id number] Ronald Mills MD [address] [facility] [address] [place] [address] documented as of this encounter Visit Diagnoses Not on filedocumented in this encounter Additional Health Concerns Infection Onset Date Last Indicated Resolved Time COVID-19 03/05/2022 03/05/2022 03/15/2022 7:18 PM EDT documented as of this encounter Care Teams Charge Account Identification Clerk Relationship Specialty Start Date End Date Caitlyn Bowie MD [address] [facility] 1 [place] [address] PCP - General Internal Medicine 05/06/21 Henry Kelly MD Pulmonary Department 175 [facility], [address] [place] [address] Physician Pulmonary Disease 09/06/17 06/22/20 documented as of this encounter
--- OUTSIDE RECORDS SUMMARY | 2024-08-08 14:50 | XMS_ITS | Clinical Summary ---
Author Organization [facility] Address [address] [place] [address] Care Team Providers Care Roll Edge Stitcher Hand Name Role Phone Caitlyn Bowie Primary Care Provider [phone] Allergies Active Allergy Reactions Criticality Noted Date Comments Amlodipine Other (see comments) Medium 11/23/2020 Other reaction(s): Other (See Comments) flushing flushing Avanafil Unknown 07/27/2022 Avocado (Laurus Persea) Anaphylaxis,Shor tness of breath,Unknown High 04/15/2013 Other reaction(s): Resp Distress Other reaction(s): Resp Distress Other reaction(s): Resp Distress Other reaction(s): Resp Distress Azithromycin Rash,Unknown Medium 03/05/2013 Barium Iodide Anaphylaxis,Other (see comments),Rash High 01/19/2016 Other reaction(s): Throat Closes Other reaction(s): Throat Closes Other reaction(s): Throat Closes Barium Sulfate 09/16/2016 Bee Pollen Anaphylaxis,Shortnes s of breath High 02/18/2013 Other reaction(s): Resp Distress Allergic to bee stings Allergic to bee stings Other reaction(s): Resp Distress Allergic to bee stings Allergic to bee stings Other reaction(s): Resp Distress Allergic to bee stings Bee Venom Protein (Honey Bee) 09/06/2021 Buspirone Anaphylaxis High 01/04/2022 Ciprofloxacin Anaphylaxis High 08/26/2014 Patient reported that she couldn't walk Patient reported that she couldn't walk Patient reported that she couldn't walk Patient reported that she couldn't walk Clarithromycin Other (see comments),Rash,Unknow n,Shortness of breath High 05/09/2008 Other reaction(s): Hypotension numbness Colistin Unknown Medium 12/18/2021 Diclofenac Anaphylaxis,Other (see comments),Rash,Unknow n,Shortness of breath High 11/07/2012 Erythromycin Anaphylaxis,Other (see comments),Rash,Unknow n,Shortness of breath High 11/07/2012 Erythromycin Base 08/23/2022 Gentamicin Anaphylaxis,Hives,Ra s h,Unknown,Shortness of breath High 05/09/2008 Iodinated Contrast Media Itching,Other ( see comments),Rash,Shortn ess of breath,Swelling,Unkno wn High 05/09/2008 Bronchospasm or Wheezing Throat tightness Throat tightness Bronchospasm or Wheezing Throat tightness Throat tightness Throat tightness Ipratropium [place] Unknown Medium 12/18/2021 Isosorbide Mononitrate 11/23/2020 Other reaction(s): Headache Levofloxacin Unknown,Nausea And Vomiting,Other (see comments),Shortness of breath High 02/18/2013 painful tight joints painful tight joints painful tight joints Metronidazole Anaphylaxis,Shortnes s of breath,Unknown High 10/17/2014 Other reaction(s): Resp Distress Visual changes, back pain, weakness Visual changes, back pain, weakness Other reaction(s): Resp Distress Visual changes, back pain, weakness Visual changes, back pain, weakness Other reaction(s): Resp Distress Visual changes, back pain, weakness Mold Unknown High 02/18/2013 Other reaction(s): Other (See Comments) Other reaction(s): Resp Distress Other reaction(s): Resp Distress Other reaction(s): Resp Distress Mold Extracts Shortness of breath High 04/15/2013 Morphine GI intolerance,Nause a And Vomiting,Other (see comments) Medium 09/26/2014 Other reaction(s): OTHER, Other (See Comments) Flushed, almost passed out Flushed, almost passed out Flushed, almost passed out Flushed, almost passed out Moxifloxacin Anaphylaxis,Hives,It c rosalinda,Other (see comments),Rash,Unknow n,Shortness of breath,Swelling High 05/09/2008 Other reaction(s): Rash Other reaction(s): Rash Other 05/09/2008 Other reaction(s): Mental Status Change, Other (See Comments) muscles relaxers muscles relaxers Some muscle relaxers Some muscle relaxers Penicillins Anaphylaxis,Hives,It c rosalinda,Other (see comments),Rash,Unknow n,Shortness of breath High 05/09/2008 Procaine Unknown,Other (see comments) Medium 01/19/2016 Other reaction(s): Unknown Shrimp Other (see comments),Itching,Unk nown Medium 12/16/2018 Sulfa (Sulfonamide Antibiotics) Rash,Shortness of breath High 11/07/2012 Sulfur Hives,Itching,Rash Low 05/09/2008 Vancomycin Analogues Anaphylaxis,Rash,Un kn own,Shortness of breath High 11/07/2012 Other reaction(s): Other (See Comments), Rash/Dermatitis Medications albuterol 2.5 mg /3 mL (0.083 %) nebulizer solution Inhale 1 vial every 4 (four) hours as needed. 10/10/19 19 Active albuterol HFA 90 mcg/actuation inhaler albuterol sulfate HFA 90 mcg/actuation aerosol inhaler 06/25/20 18 Active docusate sodium (COLACE) 100 mg capsule Take 200 mg by mouth in the morning and 200 mg in the evening. Active EPINEPHrine (EPIPEN) 0.3 mg/0.3 mL injection syringe INJECT ONE PEN INTRAMUSCULARLY DIRECTED FOR ANAPHYLAXIS THEN CALL 911 07/05/20 22 Active fluticasone propion-salmet David (ADVAIR HFA) 230-21 mcg/actuation inhaler Advair HFA 230 mcg-21 mcg/actuation aerosol inhaler INHALE 2 PUFFS TWICE DAILY. 07/06/20 20 Active furosemide (LASIX) 20 mg tablet 20mg plus 1/2 tablet total of 30mg 08/07/19 18 Active meclizine (ANTIVERT) 25 mg tablet Take 25 mg by mouth 3 times daily as needed. Active predniSONE (DELTASONE) 5 mg tablet prednisone 5 mg tablet TAKE ONE TABLET BY MOUTH EVERY DAY 07/03/20 21 Active rosuvastatin (CRESTOR) 10 mg tablet rosuvastatin 10 mg tablet TAKE 1 TABLET BY MOUTH EVERY 2 DAYS. 05/14/20 21 Active montelukast (SINGULAIR) 10 mg tablet montelukast 10 mg tablet TAKE ONE TABLET BY MOUTH EVERY DAY 02/04/20 16 Active levothyroxine (SYNTHROID) 25 mcg tablet Synthroid 25 mcg tablet TAKE ONE TABLET BY MOUTH ONCE DAILY 5 DAYS A WEEK AND TAKE TWO TABLETS 2 DAYS A WEEK OR DIRECTED 01/09/20 13 Active metoprolol succinate XL (Toprol XL) 50 mg 24 hr tablet Take 50 mg by mouth. 25mg in am 25mg in pm 07/05/20 20 Active traZODone (DESYREL) 50 mg tablet trazodone 50 mg tablet TAKE TWO TABLETS BY MOUTH AT BEDTIME 01/06/20 16 Active warfarin (COUMADIN) 2 mg tablet Take 2 mg by mouth. Active cefPODOXime (VANTIN) 200 mg tablet TAKE 1 TABLET BY MOUTH TWICE DAILY FOR 7 DAYS. TAKE WITH MEAL/FOOD. 11/10/19 23 Active ELDERBERRY FRUIT ORAL Take by mouth. Acti ve Home Oxygen Therapy Inhale 2 L. Bled into bipap Active Active Problems Problem Noted Date Diagnosed Date Pulmonary hypertension 08/23/2022 KANDY on CPAP 08/23/2022 History of adenocarcinoma of lung 08/23/2022 Overview (08/23/2022): S/p LLL lobectomy for stage IIIa lung adenocarcinoma, in remission History of pulmonary embolism 08/23/2022 S/P mitral valve clip implantation 08/23/2022 Social History Tobacco Use Types Packs/Day Years Used Date Smoking Tobacco: Never Smokeless Tobacco: Never Tobacco Cessation:Counseling Given: Not Answered Alcohol Use Standard Drinks/Week Comments Never 0 (1 standard drink = 0.6 oz pur e alcohol) Comments Unknown Sex and Gender Information Value Date Recorded Sex Assigned at Not on file Legal Sex Female 5:43 AM EST Gender Identity Not on file Sexual Orientation Not on file Last Filed Vital Signs Vital Sign Reading Time Taken Comments Blood Pressure 136/73 08/23/2022 2:25 PM EST Pulse 89 08/23/2022 2:25 PM EST Temperature - - Respiratory Rate 15 08/23/2022 2:25 PM EST Oxygen Saturation 98% 08/23/2022 2:25 PM EST ra Inhaled Oxygen Concentration - - Weight 59 kg (130 lb 1.6 oz) 08/23/2022 2:25 PM EST Height 160 cm (5' 3 ) 08/23/2022 2:25 PM EST Body Mass Index 23.05 08/23/2022 2:25 PM EST Plan of Treatment Health Maintenance Due Date Last Done Comments Bone Density Screening 1945 HIV Screening 1945 Medicare Annual Wellness (AWV) 1945 Zoster Vaccines (1 of 2) 1993 COVID-19 Vaccine (3 - season) 2024 09/03/2020, 08/06/2020 Influenza Vaccine (#1) 2024 , 05/13/2022, 05/15/2021, Additional history exists DTaP,Tdap,and Td Vaccines (3 - Td or Tdap) 02/27/2026 02/28/2016, 02/17/2016 Pneumococcal Vaccine, 65+ Years Completed 08/31/2021, 03/25/2016, 09/17/2015, Additional history exists HPV Vaccines Aged Out No longer eligi ble based on patient's age to complete this topic Hepatitis A Vaccines Aged Out No long er eligible based on patient's age to complete this topic Meningococcal Vaccine Aged Out No chavez carmen eligible based on patient's age to complete this topic Insurance MEDICARE PART A & B [facility] Care Teams Roll Edge Stitcher Hand Relationship Specialty Start Date End Date Caitlyn Bowie [address] [place] [address] PCP - General Internal Medicine 07/18/22
--- OUTSIDE RECORDS SUMMARY | 2024-08-08 14:50 | XMS_ITS | Encounter Summary ---
Author Organization [facility] and [facility] Address [address] [place] [phone] Care Team Providers Care Bell Captain Name Role Phone Caitlyn Bowie MD Primary Care Provider +1- [phone] Encounter Details Date Type Department Care Team (Late st Contact Info) Description 01/17/2019 Scanned Document [facility] Health Information Management [address] [place] [address] External, Provider Social History Tobacco Use Types [...] [facility] [address] [facility] [address] [place] [address] Ronald Mills MD [address] [place] [address] [address] [place] [address] documented as of this encounter Procedures Procedure Name Priority Date/Time Associated Diagnosis Comments LAB SCAN Routine 01/17/2019 documented in this encounter Results * Lab Scan (01/17/2019) Blood us Provider External LAB BLOOD ORDERABLES Final Res ult documented in this encounter Visit Diagnoses Not on filedocumented in this encounter Additional Health Concerns Infection Onset Date Last Indicated Resolved Time COVID-19 03/05/2022 03/05/2022 03/15/2022 7:18 PM EDT Assessment Noted Time PHQ-9 Depression Total Score: 2 11/07/19 19 2:06 PM EDT documented as of this encounter Care Teams Bell Captain Relationship Specialty Start Date End Date Caitlyn Bowie MD [address] [facility] 1 [place] [address] PCP - General Internal Medicine 05/06/21 Henry Kelly MD Pulmonary Department 175 [facility], [address] [place] [address] Physician Pulmonary Disease 09/06/17 06/22/20 documented as of this encounter
--- OUTSIDE RECORDS SUMMARY | 2024-08-08 14:50 | XMS_ITS | Encounter Summary ---
Author Organization [facility] and [facility] Address [address] [place] [address] Care Team Providers Care Fish Filleter Name Role Phone Caitlyn Bowie MD Primary Care Provider +1- [phone] Encounter Details Date Type Department Care Team (Late st Contact Info) Description 04/08/2024 Scanned Document INTERFACE DEFAULT [address] [place] [address] System, Provider Not In Social History Tobacco [...] [facility] [address] [facility] Building [address] [place], [place] [phone] Ronald Mills MD [address] [place] [address] [address] [place] [address] documented as of this encounter Procedures Procedure Name Priority Date/Time Associated Diagnosis Comments CT RESULT SCAN 04/08/2024 12:00 AM EDT documented in this encounter Results * CT RESULT SCAN (04/08/2024 12:00 AM EDT) us Provider Not In System IMG SCAN REPORTS Final Re sult documented in this encounter Visit Diagnoses Not on filedocumented in this encounter Additional Health Concerns Assessment Noted Time PHQ-9 Depression Total Score: 2 11/07/19 19 2:06 PM EDT documented as of this encounter Care Teams Fish Filleter Relationship Specialty Start Date End Date Caitlyn Bowie MD [address] [address] PCP - General Internal Medicine 05/06/21 documented as of this encounter
--- OUTSIDE RECORDS SUMMARY | 2024-08-08 14:50 | XMS_ITS | Encounter Summary ---
Author Organization [facility] and [facility] Address [address] [place] [address] Care Team Providers Care Any Commodity Sales Deliverer Name Role Phone Caitlyn Bowie MD Primary Care Provider +1- [phone] Encounter Details Date Type Department Care Team (Late st Contact Info) Description 07/27/2016 Scanned Document Thoracic Oncology Program at [address] [address] Suzy Kong MD [address] [place] [address] Social History Tobacco Use Types Packs/Day [...] 1:00 PM EDT Telemedicine Cancer Center at [address] [place], [place] [phone] Ronald Mills MD [address] [facility] Max [address] [place] [address] documented as of this encounter Visit Diagnoses Not on filedocumented in this encounter Additional Health Concerns Infection Onset Date Last Indicated Resolved Time COVID-19 03/05/2022 03/05/2022 03/15/2022 7:18 PM EDT documented as of this encounter Care Teams Any Commodity Sales Deliverer Relationship Specialty Start Date End Date Caitlyn Bowie MD [address] [facility] Max 1 [place] [address] PCP - General Internal Medicine 05/06/21 Henry Kelly MD Pulmonary Department 175 [facility], [address] [place] [address] Physician Pulmonary Disease 09/06/17 06/22/20 documented as of this encounter
--- OUTSIDE RECORDS SUMMARY | 2024-08-08 14:50 | XMS_ITS | Encounter Summary ---
Author Organization [facility] Address [address] [place] [address] Care Team Providers Care Painter Set Name Role Phone Caitlyn Bowie MD Primary Care Provider +1- [phone] Encounter Details Date Type Department Care Team (Late st Contact Info) Description 06/17/2016 Scanned Document [facility] Health Information Management [address] [place] [address] External, Provider Social History Tobacco Use Types [...] [facility] 240 [facility] Building [address] [place], [place] [id number] Ronald Mills MD [address] [facility] [address] [place] [address] documented as of this encounter Visit Diagnoses Not on filedocumented in this encounter Additional Health Concerns Infection Onset Date Last Indicated Resolved Time COVID-19 03/05/2022 03/05/2022 03/15/2022 7:18 PM EDT documented as of this encounter Care Teams Painter Set Relationship Specialty Start Date End Date Caitlyn Bowie MD [address] [facility] 1 [place] [address] PCP - General Internal Medicine 05/06/21 Henry Kelly MD Pulmonary Department 175 [facility], [address] [place] [address] Physician Pulmonary Disease 09/06/17 06/22/20 documented as of this encounter
--- OUTSIDE RECORDS SUMMARY | 2024-08-08 14:50 | XMS_ITS | Encounter Summary ---
Author Organization [facility] Address [address] [place] [address] Care Team Providers Care Audio Visual Specialist Name Role Phone Caitlyn Bowie MD Primary Care Provider +1- [phone] Encounter Details Date Type Department Care Team (Late st Contact Info) Description 12/27/2018 Scanned Document [facility] Health Information Management [address] [place] [address] External, Provider Social History Tobacco Use Types [...] Center at [facility] [address] [facility] Building [address] [place] [address] Ronald Mills MD [address] [place] [address] [address] [place] [address] documented as of this encounter Procedures Procedure Name Priority Date/Time Associated Diagnosis Comments XRAY RESULT SCAN Routine 12/27/2018 documented in this encounter Results * Xray Result Scan (12/27/2018) us Provider External IMG SCAN REPORTS Final Result documented in this encounter Visit Diagnoses Not on filedocumented in this encounter Additional Health Concerns Infection Onset Date Last Indicated Resolved Time COVID-19 03/05/2022 03/05/2022 03/15/2022 7:18 PM EDT Assessment Noted Time PHQ-9 Depression Total Score: 2 11/07/19 19 2:06 PM EDT documented as of this encounter Care Teams Audio Visual Specialist Relationship Specialty Start Date End Date Caitlyn Bowie MD 34[address] [facility] 1 [place] [address] PCP - General Internal Medicine 05/06/21 Henry Kelly MD Pulmonary Department 175 [facility], [address] [place] [address] Physician Pulmonary Disease 09/06/17 06/22/20 documented as of this encounter
--- OUTSIDE RECORDS SUMMARY | 2024-08-08 14:50 | XMS_ITS | Encounter Summary ---
Author Organization [facility] Address [address] [place] [address] Care Team Providers Care Feather Boner Name Role Phone Caitlyn Bowie MD Primary Care Provider +1- [phone] Encounter Details Date Type Department Care Team (Late st Contact Info) Description 01/09/2019 Scanned Document [facility] Health Information Management [address] [place] [phone] External, Provider Social History Tobacco Use Types [...] at [facility] [address] [facility] Building [address] [place] [address] Ronald Mills MD [address] [place] [address] [address] [place] [address] documented as of this encounter Procedures Procedure Name Priority Date/Time Associated Diagnosis Comments XRAY RESULT SCAN Routine 01/09/2019 documented in this encounter Results * Xray Result Scan (01/09/2019) us Provider External IMG SCAN REPORTS Final Result documented in this encounter Visit Diagnoses Not on filedocumented in this encounter Additional Health Concerns Infection Onset Date Last Indicated Resolved Time COVID-19 03/05/2022 03/05/2022 03/15/2022 7:18 PM EDT Assessment Noted Time PHQ-9 Depression Total Score: 2 11/07/19 19 2:06 PM EDT documented as of this encounter Care Teams Feather Boner Relationship Specialty Start Date End Date Caitlyn Bowie MD [address] [facility] 1 [place] [address] PCP - General Internal Medicine 05/06/21 Henry Kelly MD Pulmonary Department 175 [facility], [address] [place] [address] Physician Pulmonary Disease 09/06/17 06/22/20 documented as of this encounter
--- OUTSIDE RECORDS SUMMARY | 2024-08-08 14:50 | XMS_ITS | Encounter Summary ---
Author Organization [facility] and [facility] Address [address] [place] [address] Care Team Providers Care Safety Council Director Name Role Phone Caitlyn Bowie MD Primary Care Provider +1- [phone] Encounter Details Date Type Department Care Team (Late st Contact Info) Description 12/14/2016 Scanned Document [facility] Health Information Management [address] [place] [address] External, Provider Social History Tobacco Use Types [...] [facility] [address] [facility] [address] [place], [place] [phone] Ronald Mills MD 240 [facility] [address] [place] [address] documented as of this encounter Procedures Procedure Name Priority Date/Time Associated Diagnosis Comments CT RESULT SCAN Routine 12/14/2016 LAB SCAN Routine 12/14/2016 documented in this encounter Results * CT Result Scan (12/14/2016) us Provider External IMG SCAN REPORTS Final Result * Lab Scan (12/14/2016) Blood specimen (specimen) us Provider External LAB BLOOD ORDERABLES Final Res ult documented in this encounter Visit Diagnoses Not on filedocumented in this encounter Additional Health Concerns Infection Onset Date Last Indicated Resolved Time COVID-19 03/05/2022 03/05/2022 03/15/2022 7:18 PM EDT documented as of this encounter Care Teams Safety Council Director Relationship Specialty Start Date End Date Caitlyn Bowie MD 3400 [facility] 1 [place] [address] PCP - General Internal Medicine 05/06/21 Henry Kelly MD Pulmonary Department 175 [facility], [address] [place] [address] Physician Pulmonary Disease 09/06/17 06/22/20 documented as of this encounter
--- OUTSIDE RECORDS SUMMARY | 2024-08-08 14:50 | XMS_ITS | Encounter Summary ---
Author Organization [facility] and [facility] Address [address] [place] [address] Care Team Providers Care Field Operator Name Role Phone Caitlyn Bowie MD Primary Care Provider +1- [phone] Encounter Details Date Type Department Care Team (Late st Contact Info) Description 04/23/2024 Scanned Document INTERFACE DEFAULT [address] [place] [address] System, Provider Not In Social History Tobacco [...] Affairs [facility] 240 [facility] [address] [place], [place] [phone] Ronald Mills MD [address] [place] [address] [address] [place] [address] documented as of this encounter Procedures Procedure Name Priority Date/Time Associated Diagnosis Comments LAB SCAN 04/23/2024 12:00 AM EDT documented in this encounter Results * LAB SCAN (04/23/2024 12:00 AM EDT) us Provider Not In System LAB BLOOD ORDERABLES Carmina l Result documented in this encounter Visit Diagnoses Not on filedocumented in this encounter Additional Health Concerns Assessment Noted Time PHQ-9 Depression Total Score: 2 11/07/19 19 2:06 PM EDT documented as of this encounter Care Teams Field Operator Relationship Specialty Start Date End Date Caitlyn Bowie MD [address] [address] PCP - General Internal Medicine 05/06/21 documented as of this encounter
--- OUTSIDE RECORDS SUMMARY | 2024-08-08 14:50 | XMS_ITS | Encounter Summary ---
Author Organization [facility] Address [address] [place] [address] Care Team Providers Care Topper Packer Name Role Phone Caitlyn Bowie MD Primary Care Provider +1- [phone] Encounter Details Date Type Department Care Team (Late st Contact Info) Description 12/14/2016 Scanned Document [facility] Health Information Management [address] [place] [address] External, Provider Social History Tobacco Use Types [...] at [facility] 240 [facility] Building [address] [place], [place] [phone] Ronald Mills MD 240 [facility] [address] [place] [address] documented as of this encounter Visit Diagnoses Not on filedocumented in this encounter Additional Health Concerns Infection Onset Date Last Indicated Resolved Time COVID-19 03/05/2022 03/05/2022 03/15/2022 7:18 PM EDT documented as of this encounter Care Teams Topper Packer Relationship Specialty Start Date End Date Caitlyn Bowie MD 3400 [facility] 1 [place] [address] PCP - General Internal Medicine 05/06/21 Henry Kelly MD Pulmonary Department 175 [facility], [address] [place] [address] Physician Pulmonary Disease 09/06/17 06/22/20 documented as of this encounter
--- OUTSIDE RECORDS SUMMARY | 2024-08-08 14:50 | XMS_ITS | Encounter Summary ---
Author Organization [facility] and [facility] Address [address] [place] [address] Care Team Providers Care Change Booth Attendant Name Role Phone Caitlyn Bowie MD Primary Care Provider +1- [phone] Reason for Referral * Imaging (Routine) - Closed Specialty Diagnoses / Procedures Referred By Contac t Referred To Contact Procedures NM Lung Ventilation Perfusion ([facility]) External, Provider Referral ID Status Reason Start Date Expiration Date Visits Re quested Visits Authorized [id number] Closed 08/22/2016 08/22/2017 4 4 Encounter Details Date Type Department Care Team (Late st Contact Info) Description 08/22/2016 Scanned Document Thoracic Oncology Program at [address] [address] External, Provider Social History Tobacco Use Types [...] 1:00 PM EDT Telemedicine Cancer Center at [address] [place] [address] Ronald Mills MD [address] [place] [address] Rd [address] [place] [phone] documented as of this encounter Procedures Procedure Name Priority Date/Time Associated Diagnosis Comments XRAY RESULT SCAN Routine 07/27/2016 CT RESULT SCAN Routine 07/27/2016 CT RESULT SCAN Routine 07/27/2016 CARDIAC EKG RESULT SCAN Routine 07/27/2016 LAB SCAN Routine 07/27/2016 NM LUNG VENTILATION PERFUSIO N ([facility]) Routine 07/27/2016 documented in this encounter Results * Xray Result Scan (07/27/2016) us Provider External IMG SCAN REPORTS Final Result Performing Organization Address [facility] Co de Phone Number [facility] * CT Result Scan (07/27/2016) us Provider External IMG SCAN REPORTS Final Result Performing Organization Address [facility] Co de Phone Number [facility] * Cardiac EKG Result Scan (07/27/2016) us Provider External CV CARDIAC REPORT (CVR) Final Result Performing Organization Address [facility] Co de Phone Number [facility] * CT Result Scan (07/27/2016) us Provider External IMG SCAN REPORTS Final Result Performing Organization Address [facility] Co de Phone Number [facility] * Lab Scan (07/27/2016) Blood specimen (specimen) us Provider External LAB BLOOD ORDERABLES Final Res ult Performing Organization Address [facility] Co de Phone Number [facility] * NM Lung Ventilation Perfusion ([facility]) (07/27/2016) Anatomical Region Laterality Modality Chest, Lung Nuclear Medicine us Provider External IMG NM ORDERABLES Final Result documented in this encounter Visit Diagnoses Not on filedocumented in this encounter Additional Health Concerns Infection Onset Date Last Indicated Resolved Time COVID-19 03/05/2022 03/05/2022 03/15/2022 7:18 PM EDT documented as of this encounter Care Teams Change Booth Attendant Relationship Specialty Start Date End Date Caitlyn Boiwe MD 3400 [facility] 1 [place] [address] PCP - General Internal Medicine 05/06/21 Henry Kelly MD Pulmonary Department 175 [facility], [address] [place] [address] Physician Pulmonary Disease 09/06/17 06/22/20 documented as of this encounter
--- OUTSIDE RECORDS SUMMARY | 2024-08-08 14:50 | XMS_ITS | Encounter Summary ---
Author Organization [facility] and [facility] Address [address] [place] [address] Care Team Providers Care Cigarette Tipper Name Role Phone Caitlyn Bowie MD Primary Care Provider +1- [phone] Encounter Details Date Type Department Care Team (Late st Contact Info) Description 12/28/2018 Scanned Document [facility] Health Information Management [address] [place] [address] External, Provider Social History Tobacco Use Types [...] [facility] 240 [facility] [address] [place] [address] Ronald Mills MD [address] [place] [address] [address] [place] [address] documented as of this encounter Procedures Procedure Name Priority Date/Time Associated Diagnosis Comments NUC MED/PET RESULT SCAN Routine 12/28/2018 XRAY RESULT SCAN Routine 12/28/2018 documented in this encounter Results * Nuc Med/PET Result Scan (12/28/2018) us Provider External IMG SCAN REPORTS Final Result * Xray Result Scan (12/28/2018) us Provider External IMG SCAN REPORTS Final Result documented in this encounter Visit Diagnoses Not on filedocumented in this encounter Additional Health Concerns Infection Onset Date Last Indicated Resolved Time COVID-19 03/05/2022 03/05/2022 03/15/2022 7:18 PM EDT Assessment Noted Time PHQ-9 Depression Total Score: 2 11/07/19 19 2:06 PM EDT documented as of this encounter Care Teams Cigarette Tipper Relationship Specialty Start Date End Date Caitlyn Bowie MD 3400 [facility] Max 1 [place] [address] PCP - General Internal Medicine 05/06/21 Henry Kelly MD Pulmonary Department 175 [facility], [address] [place] [address] Physician Pulmonary Disease 09/06/17 06/22/20 documented as of this encounter
--- OUTSIDE RECORDS SUMMARY | 2024-08-08 14:50 | XMS_ITS | Encounter Summary ---
Author Organization [facility] and [facility] Address [address] [place] [address] Care Team Providers Care Business Improvement Manager Name Role Phone Caitlyn Bowie MD Primary Care Provider +1- [phone] Encounter Details Date Type Department Care Team (Late st Contact Info) Description 06/17/2016 Scanned Document [facility] Health Information Management [address] [place] [address] External, Provider Social History Tobacco Use Types [...] [facility] 240 [facility] Building [address] [place], [place] [phone] Ronald Mills MD 240 [facility] A1 [place] [address] documented as of this encounter Visit Diagnoses Not on filedocumented in this encounter Additional Health Concerns Infection Onset Date Last Indicated Resolved Time COVID-19 03/05/2022 03/05/2022 03/15/2022 7:18 PM EDT documented as of this encounter Care Teams Business Improvement Manager Relationship Specialty Start Date End Date Caitlyn Bowie MD 3400 [facility] 1 [place] [address] PCP - General Internal Medicine 05/06/21 Henry Kelly MD Pulmonary Department 175 [facility], [address] [place] [address] Physician Pulmonary Disease 09/06/17 06/22/20 documented as of this encounter
--- OUTSIDE RECORDS SUMMARY | 2024-08-08 14:50 | XMS_ITS | Encounter Summary ---
Author Organization [facility] and [facility] Address [address] [place] [address] Care Team Providers Care Model And Pattern Supervisor Name Role Phone Caitlyn Bowie MD Primary Care Provider +1- [phone] Encounter Details Date Type Department Care Team (Late st Contact Info) Description 12/16/2016 Scanned Document [facility] Health Information Management [address] [place] [address] External, Provider Social History Tobacco Use Types [...] – [facility] 240 [facility] [address] [place], [place] [phone] Ronald Mills MD 240 [facility] [address] [place] [address] documented as of this encounter Procedures Procedure Name Priority Date/Time Associated Diagnosis Comments XRAY RESULT SCAN Routine 12/16/2016 documented in this encounter Results * Xray Result Scan (12/16/2016) us Provider External IMG SCAN REPORTS Edited Result - Final documented in this encounter Visit Diagnoses Not on filedocumented in this encounter Additional Health Concerns Infection Onset Date Last Indicated Resolved Time COVID-19 03/05/2022 03/05/2022 03/15/2022 7:18 PM EDT documented as of this encounter Care Teams Model And Pattern Supervisor Relationship Specialty Start Date End Date Caitlyn Bowie MD 3400 [facility] 1 [place] [address] PCP - General Internal Medicine 05/06/21 Henry Kelly MD Pulmonary Department 175 [facility], [address] [place] [address] Physician Pulmonary Disease 09/06/17 06/22/20 documented as of this encounter
--- OUTSIDE RECORDS SUMMARY | 2024-08-08 14:50 | XMS_ITS | Encounter Summary ---
Author Organization [facility] and [facility] Address [address] [place] [address] Care Team Providers Care Plating Equipment Tender Name Role Phone Caitlyn Bowie MD Primary Care Provider +1- [phone] Encounter Details Date Type Department Care Team (Late st Contact Info) Description 04/04/2016 Scanned Document [facility] Health Information Management [address] [place] [address] External, Provider Social History Tobacco Use Types [...] Affairs [facility] 240 [facility] Building [address] [place], [place] [phone] Ronald Mills MD 240 [facility] [address] [place] [address] documented as of this encounter Procedures Procedure Name Priority Date/Time Associated Diagnosis Comments LAB SCAN Routine 04/04/2016 documented in this encounter Results * Lab Scan (04/04/2016) Blood specimen (specimen) us Provider External LAB BLOOD ORDERABLES Final Res ult [facility] documented in this encounter Visit Diagnoses Not on filedocumented in this encounter Additional Health Concerns Infection Onset Date Last Indicated Resolved Time COVID-19 03/05/2022 03/05/2022 03/15/2022 7:18 PM EDT documented as of this encounter Care Teams Plating Equipment Tender Relationship Specialty Start Date End Date Caitlyn Bowie MD 3400 [facility] 1 [place] [address] PCP - General Internal Medicine 05/06/21 Henry Kelly MD Pulmonary Department 175 [facility], [address] [place] [address] Physician Pulmonary Disease 09/06/17 06/22/20 documented as of this encounter
== END 2024-08-08 12:54 | disposition home or self-care (01) ==
PROVIDERS: PCP Internal Medicine; Visit Provider Hospitalist
DX: J41.0 Simple chronic bronchitis (principal); J96.12 Chronic respiratory failure with hypercapnia; G47.31 Primary central sleep apnea; I27.20 Pulmonary hypertension, unspecified; R30.0 Dysuria; R91.8 Other nonspecific abnormal finding of lung field; J96.11 Chronic respiratory failure with hypoxia; G47.33 Obstructive sleep apnea (adult) (pediatric); J70.1 Chronic and other pulmonary manifestations due to radiation; I50.32 Chronic diastolic (congestive) heart failure; C34.12 Malignant neoplasm of upper lobe, left bronchus or lung; J90 Pleural effusion, not elsewhere classified
CPT/HCPCS: 99215; G2211

== ENCOUNTER 2024-08-30 11:44 | Emergency (ER) | payer MEDICARE, SELFPAY ==
--- NOTE | ~2024-08-30 | CT_ITS ---
EXAMINATION: CT HEAD WITHOUT CONTRAST CLINICAL INFORMATION: trauma on coumadin COMPARISON: May 06, 2023. TECHNIQUE: Contiguous axial imaging was performed from the skull base to vertex without intravenous administration of contrast. This CT examination was performed using dose optimization techniques as appropriate, variously including the following: *Automated exposure control *Adjustment of mA and/or kV according to patient size (this includes techniques or standardized protocols for targeted exams where dose is matched to indication/reason for exam; i.e. extremities or head) *Use of iterative reconstruction technique DLP: 560 mGy-cm FINDINGS: The bony calvarium is intact with the thickened calvarium. Skull base is intact. No acute intracranial hemorrhage, mass effect, midline shift, hydrocephalus or herniation. Martinez-white matter differentiation is normal. There is prominence of the extra-axial CSF spaces cerebral sulci and ventricles. Posterior cranial fossa contents demonstrated no acute intracranial hemorrhage or mass effect. Sellar/suprasellar region demonstrated no gross masses or hemorrhage. Craniocervical junction is no fully evaluated. No air-fluid levels in the included paranasal sinuses. Tympanic cavities and mastoid cells are aerated. There is a round 6 mm soft tissue nodular lesion in the extraconal compartment of the superior lateral left orbit.. CT/CT head/brain wo IV con IMPRESSION: No acute fracture, but it calvarium. No acute intracranial hemorrhage. Global cerebral atrophy. Small vessel occlusive disease. Probable benign hemangioma, extraconal superior left orbit.. Electronically signed by: Kt Millan MD 08/30/2024 01:[address] [facility]
--- NOTE | ~2024-08-30 | US_ITS ---
CLINICAL HISTORY: pain, swelling Venous duplex ultrasound bilateral lower extremity Comparison: US/SR - US VENOUS DUPLEX LE LT - 04/11/24 15:48 EDT US/SR - US VENOUS DUPLEX LE BI - 11/17/23 13:58 EDT US/SR - US VENOUS DUPLEX LE BI - 10/14/23 19:46 EDT Findings: The visualized deep veins are fully compressible with normal Doppler color flow and spectral tracings. No popliteal cyst. IMPRESSION: 1. Negative for bilateral lower extremity deep vein thrombosis. This document has been electronically signed by: Shantelle Sutherland MD on 08/30/2024 18:28:05
[2024-08-30 12:10] VITALS: BP 138/74; PULSE 90; O2SAT 100
[2024-08-30 12:12] VITALS: BP 135/68; PULSE 88; RESP 18; TEMP 36.7; O2SAT 97; BMI 22.9
--- NOTE | 2024-08-30 12:17 | ED_ITS ---
HPI - General Adult General Chief complaint: Headache Stated complaint: MCHUGH, WEAK, HIT HEAD LAST WEEK, +THIN PER EMS Time Seen by Provider: 08/30/24 11:55 Source: patient, RN notes reviewed and old records reviewed Mode of arrival: EMS Limitations: no limitations History of Present Illness ED Provider: Nelly HPI narrative: 79-year-old female with past medical history significant for COPD on 2 L, iron- deficiency anemia, complex regional pain syndrome, atrial septal defect, history of coronary artery disease, heart failure factor 5 Leiden on Coumadin with history of DVT presents for evaluation of a headache. Patient reports that she had a severe headache last night. The headache was global in nature it has improved somewhat today She states her pain is currently an 8/10. She has associated light sensitivity, nausea and bilateral lower extremity weakness The patient reports when her headache was severe last night she had bilateral blurry vision. Her headache started around 5:00 p.m. yesterday, about 24 hours ago but she also had intermittent weakness for about 2 days prior to that. She has a history of migraines but reports this feels different. The patient admits that she did strike her head in the car door last week Her doctor sent her here to be evaluated for stroke workup. The patient reports that she has been compliant with her Coumadin. She reports that she had carotid ultrasounds a couple of weeks ago at [facility] She also endorses left leg swelling and calf pain. This has been going on for about 1 week Related Data Home Medications ?Medication ?Instructions ?Recorded ?Confirmed levothyroxine 25 mcg tablet 25 mcg PO MOTUWETHFR@0600 06/14/22 06/24/24 (Synthroid) CPAP (CPAP Machine/Device) 06/30/22 06/24/24 Oxygen Home Use 06/30/22 06/24/24 nebulizers 06/30/22 06/24/24 epinephrine 0.3 mg/0.3 mL 0.3 mg IM USEASDIRECTD PRN 07/14/22 06/24/24 injection, auto-injector Allergic Reaction levothyroxine 25 mcg tablet 50 mcg PO SUSA@0600 01/05/24 06/24/24 (Synthroid) warfarin 2.5 mg tablet (Jantoven) 1.5 mg PO DAILY@1800 01/05/24 06/24/24 docusate sodium 100 mg capsule 100 mg PO DAILY 01/14/24 06/24/24 ferrous sulfate 325 mg (65 mg 325 mg PO DAILY 01/14/24 06/24/24 iron) tablet acetaminophen 325 mg tablet 650 mg PO Q6H PRN Pain/Fever 02/01/24 06/24/24 biotin 1 mg tablet 3 mg PO DAILY 02/01/24 06/24/24 bisacodyl 10 mg rectal suppository 10 mg WV DAILY PRN No BM x3 days 02/01/24 06/24/24 MoM not effective fluticasone propionate 50 2 spray intranasal DAILY 02/01/24 06/24/24 mcg/actuation nasal spray,suspension guaifenesin 400 mg tablet 400 mg PO TID 02/01/24 06/24/24 magnesium hydroxide 400 mg/5 mL 30 ml PO NEEDED PRN 02/01/24 06/24/24 oral suspension (Milk of Magnesia) Constipation, No BM in 3 days ondansetron 4 mg disintegrating 4 mg PO Q4H PRN Nausea/Vomiting 02/01/24 06/24/24 tablet sodium phosphates 19 gram-7 118 ml WV NEEDED PRN No result 02/01/24 06/24/24 gram/118 mL enema (Enema) from MoM and Bisacodyl Supp Previous Rx's ?Medication ?Instructions ?Recorded chlorhexidine gluconate 0.12 % 15 ml buccal BID 14 days #420 mL 01/02/24 mouthwash cefuroxime axetil 500 mg tablet 500 mg PO BID #8 tabs 02/04/24 diazepam 5 mg tablet 5 mg PO BID PRN anxiety #14 tabs 02/04/24 oxycodone 5 mg tablet 5 mg PO Q8H PRN pain (scale score 02/04/24 7-10) #10 tabs simethicone 80 mg chewable tablet 80 mg PO QIDWMHS #20 tabs 02/04/24 (Gas Relief (simethicone)) Advair HFA 230 mcg-21 2 puff inhalation BID 90 days #36 03/13/24 mcg/actuation aerosol inhaler grams (fluticasone propion-salmeterol) acetylcysteine 100 mg/mL (10 %) 2 ml inhalation BID 30 days #120 mL 03/21/24 solution codeine 10 mg-guaifenesin 100 mg/5 10 ml PO Q4-6H PRN cough #473 mL 03/23/24 mL oral liquid albuterol sulfate 90 mcg/actuation 2 inh inhalation Q6H PRN shortness 04/01/24 aerosol inhaler of breath or wheezing 90 days #3 ea levalbuterol tartrate 45 2 puff inhalation Q6H PRN 04/01/24 mcg/actuation aerosol inhaler shortness of breath or wheezing 90 (Xopenex HFA) days #45 grams furosemide 40 mg tablet 80 mg (2 x 40 mg) PO BID #360 tabs 05/01/24 metoprolol succinate 50 mg 50 mg PO BID #180 tabs 05/10/24 tablet,extended release 24 hr (Toprol XL) sodium di- and 1 tab PO BID 1 day #2 tabs 05/10/24 monophosphate-potassium phos monobasic 250 mg tablet (A-Tdtb-Lxyyybm) levocetirizine 5 mg tablet 5 mg PO DAILY 90 days #90 tabs 05/23/24 prednisone 2.5 mg tablet 2.5 mg PO DAILY 90 days #90 tabs 07/01/24 trazodone 50 mg tablet 100 mg (2 x 50 mg) PO BEDTIME #180 07/01/24 tabs meclizine 25 mg tablet 25 mg PO Q8H PRN dizziness 10 days 07/22/24 #30 tabs rosuvastatin 10 mg tablet 10 mg PO ONCE #90 tabs 08/02/24 potassium chloride 20 mEq 40 meq (2 x 20 mEq) PO DAILY #60 08/12/24 tablet,extended release tabs montelukast 10 mg tablet 10 mg PO DAILY #90 tabs 08/24/24 Allergies Allergy/AdvReac Type Severity Reaction Status Date / Time morphine Allergy Severe Itching Verified 08/30/24 12:15 avocado [AVOCADO] Allergy Mild ITCHY Verified 08/08/24 11:04 THROAT, RASH azithromycin [AZITHROMYCIN] Allergy Mild ITCHY Verified 08/08/24 11:04 THROAT, RASH barium iodide [BARIUM IODIDE] Allergy Mild ITCHY Verified 08/08/24 11:04 THROAT, RASH barium sulfate Allergy Mild Itch Verified 08/08/24 11:04 bee pollen [BEE STINGS] Allergy Mild ITCHY Verified 08/08/24 11:04 THROAT, RASH ciprofloxacin [From CIPRO] Allergy Mild ITCHY Verified 08/08/24 11:04 THROAT, RASH clarithromycin [From BIAXIN] Allergy Mild ITCHY Verified 08/08/24 11:04 THROAT, RASH diatrizoate meglumine Allergy Mild ITCHY Verified 08/08/24 11:04 [From GASTROGRAFIN] THROAT, RASH diatrizoate sodium Allergy Mild ITCHY Verified 08/08/24 11:04 [From GASTROGRAFIN] THROAT, RASH diclofenac [From VOLTAREN] Allergy Mild ITCHY Verified 08/08/24 11:04 THROAT, RASH erythromycin base Allergy Mild ITCHY Verified 08/08/24 11:04 [ERYTHROMYCIN BASE] THROAT, RASH gentamicin [GENTAMICIN] Allergy Mild ITCHY Verified 08/08/24 11:04 THROAT, RASH Iodinated Contrast Media Allergy Mild ITCHY Verified 08/08/24 11:04 [IVP DYE] THROAT, RASH levofloxacin [From LEVAQUIN] Allergy Mild ITCHY Verified 08/08/24 11:04 THROAT, RASH metronidazole [From FLAGYL] Allergy Mild ITCHY Verified 08/08/24 11:04 THROAT, RASH moxifloxacin [From AVELOX] Allergy Mild ITCHY Verified 08/08/24 11:04 THROAT, RASH Penicillins [PENICILLINS] Allergy Mild ITCHY Verified 08/08/24 11:04 THROAT, RASH shrimp [SHRIMP] Allergy Mild ITCHY Verified 08/08/24 11:04 THROAT, RASH Sulfa (Sulfonamide Allergy Mild ITCHY Verified 08/08/24 11:04 Antibiotics) THROAT, [SULFA (SULFONAMIDE RASH ANTIBIOTICS)] vancomycin [VANCOMYCIN] Allergy Mild ITCHY Verified 08/08/24 11:04 THROAT, RASH clindamycin AdvReac Intermediate Unknown Verified 08/08/24 11:04 Review of Systems 2 Constitutional: Constitutional: Denies body ache(s), Denies chills, Denies fever(s), Denies frequent falls and Reports headache(s) Eyes: Eyes: Reports blurry vision, Denies exophthalmos, Denies change in vision, Denies other visual disturbances, Denies eye pain and Reports photophobia ENT: Denies vertigo, Denies dizziness and Reports headache(s) Cardiovascular: Cardiovascular: Denies chest pain and Denies dyspnea Respiratory: Respiratory: Denies cough and Denies dyspnea Gastrointestinal: Gastrointestinal: Denies abdominal pain, Denies nausea and Denies vomiting Musculoskeletal: Musculoskeletal: Denies back pain Integumentary/Breasts: Skin/Breast: Denies rash Neurologic: Denies vertigo, Denies dizziness, Denies frequent falls and Reports headache(s) Psychiatric: Psychiatric: Denies anxiety and Denies suicidal ideation [facility] Past Medical History Medical History (Updated 08/30/24 @ 17:16 by Mick Villegas) Chronic hypercapnic respiratory failure KANDY treated with BiPAP COPD (chronic obstructive pulmonary disease) Open wound Warfarin anticoagulation Complex sleep apnea syndrome Leg pain Anemia Tachycardia DVT (deep venous thrombosis) Compression fracture of body of thoracic vertebra ASD (atrial septal defect) Pleuritic chest pain History of COVID-19 Chronic anticoagulation Hypothyroidism GERD (gastroesophageal reflux disease) Hyperlipidemia Hypertension Factor 5 Leiden mutation, heterozygous History of non-ST elevation myocardial infarction (NSTEMI) Hypoxia Anxiety PTSD (post-traumatic stress disorder) Hemoptysis Dyspnea Tracheobronchitis CLARA positive Diverticulitis Allergic bronchitis (HFpEF) heart failure with preserved ejection fraction Subarachnoid bleed Insomnia Anti-phospholipid antibody syndrome Hypogammaglobulinemia Chronic respiratory failure Arterial insufficiency of lower extremity Complex regional pain syndrome i of right lower limb Post herpetic neuralgia Pulmonary hypertension Pericardial effusion Pulmonary emboli Pleural effusion Radiation fibrosis of lung Pneumonitis Pulmonary nodules Lung cancer Surgical History History of colonoscopy History of lung surgery History of tonsillectomy History of hysterectomy S/P mitral valve clip implantation History of cardiac cath Family History Family History Sister No problems noted. Mother Cardiovascular disease Daughter Tachycardia Other KANDY (obstructive sleep apnea) Social History Social History Household Members: Other Housing: Jail Do you presently have visiting nurse or other home services: Yes (at home had DIRECTOR OF SPECIAL SERVICES that came to visit her) Unable to assess alcohol history related to: Unknown Alcohol intake: former Comment: stand by assist with ambulation Patient Tobacco Use Status: Never used Tobacco Second Hand Smoke Exposure: No Advance Directives: Yes Advance Directives on File: Yes Advance Directives Date on File: 06/15/22 service: No Current occupational status: retired Physical Exam ED Vital Signs: Vital Signs - 24 hr 08/30/24 12:12 Temperature 98.0 F Pulse Rate 88 Respiratory Rate 18 Blood Pressure 135/68 Pulse Oximetry 97 Oxygen Delivery Method Nasal Cannula BMI result Body Mass Index 22.9 Const General: healthy appearing, comfortable, no acute distress, alert and awake Nutritional Appearance: well nourished Orientation/consciousness: patient oriented x3 HENMT Head: Yes normocephalic and Yes atraumatic Eyes Eyelids: Yes eyelids normal Conjunctivae: conjunctivae normal Sclerae: sclerae normal Corneas: corneas normal Pupils: Equal, round and reactive pupils present EOM: EOMs intact bilaterally Direct Ophthalmoscopy: photophobia Neck Neck: Yes full ROM Resp Effort & Inspection: normal respiratory effort, able to speak in complete sentences and not labored Cardio Rate: regular rate Rhythm: regular rhythm GI Inspection: No distended Palpation (GI): Soft to palpation, not firm, nontender, no guarding and not rigid Skin General skin exam: elasticity normal Neuro General: patient oriented x3 Cranial nerves: Yes CN's II-XII intact bilaterally, Yes Equal, round and reactive pupils present and Yes Bilaterally intact EOM present Cognition (Neuro): normal cognition Extrem Other: Moving all extremities well without any obvious deformities Course Course Course Narrative: This is a rapid medical exam performed by Ludy Mendoza PA-C. The patient was an 79-year-old female with a history of COPD on 2 L nasal cannula at baseline, anemia, known degenerative disc disease, chronic back pain, who is on Coumadin, presents with multiple complaints. Patient states she struck her head on her car door a week ago, over the past day she has developed an extreme headache with diffuse back pain the entire length of her spine, and bilateral lower extremity weakness. Patient states she was sent in by her primary care for a ?stroke assessment?. I will screen basic labs I am obtaining a CT non-con of the brain given she is on Coumadin. She is stable and can return to the waiting room pending her full medical assessment. Reevaluation(s) Reevaluation #1: DVT scan negative for ultrasound. The patient remains neurologically intact with no focal deficits. Again, the patient's symptoms are most consistent with complex migraine. We will discharge the patient to follow up with the PCP. Her INR was not checked today. She reports that she checked it this morning outpatient and was 1.4. She has a plan and follows closely with her Coumadin Clinic. She was to take 3 mg of Coumadin today and tomorrow. She was to have her INR checked on 2 day. She declined repeat INR today. Time: 18:36 Medical Decision Making Medical Decision Making [facility] Narrative: 79-year-old female presents for evaluation of a headache. The patient is anticoagulated with Coumadin due to factor 5 Leiden and a history of DVT. She has no neuro deficits on exam, her symptoms are improving but she still complains of the headache. Her blurry vision and weakness has improved. The patient has an NIH stroke score of 0, nonfocal neuro exam. She was quite well appearing. Her history exam is most consistent with a complex migraine which the patient does have a history of. A CT scan of the brain does not show any acute abnormalities. 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 The patient reports that this has been followed previously and she was aware of this. I discussed possible CT angiography of the neck and head. The patient reports an allergy to contrast dye. She does report that she recently had carotid ultrasounds at [facility]. We will attempt to get those records. The patient's labs have no concerning abnormalities. She has a leukocytosis to 14.7, the patient appears to have a chronic leukocytosis. With a left shift. There is no significant anemia. Chemistries are without any significant electrolyte abnormalities. The patient's carbon dioxide level is elevated at 32, likely related to chronic O2 supplementation. Differential Diagnosis Differential Diagnoses: The differential diagnosis associated with the presentation includes Acute headache Complex migraine CVA less likely Subarachnoid hemorrhage less likely Influenza Viral syndrome Lab Data [facility] Lab Attestation statement: I reviewed the patient's lab results. As above 08/30/24 12:30 08/30/24 12:30 Labs: Lab Results 08/30/24 Range/Units 12:30 WBC 14.7 H (4.8-10.8) X10*3/uL RBC 3.75 L (4.20-5.50) X10*6/uL Hgb 12.5 (12.0-16.0) g/dl Hct 37.5 (37.0-47.0) % MCV 100.0 H (80.0-98.0) fL MCH 33.3 H (27.0-33.0) pg MCHC 33.3 (31.0-35.0) g/dl RDW 14.1 (11.0-16.0) % Plt Count 239 (160-400) X10*3/uL MPV 10.8 (9.4-12.3) fL Immature Gran % (Auto) 1.0 H (0.0-0.4) % Neut % (Auto) 85.6 H (45-73) % Lymph % (Auto) 5.4 L (20-40) % [place] % (Auto) 7.0 (2-11) % Eos % (Auto) 0.5 (0-4) % Baso % (Auto) 0.5 (0-2) % Lymph # (Auto) 0.8 L (1.2-4.9) X10*3/uL [place] # (Auto) 1.0 (0.1-1.2) X10*3/uL Eos # (Auto) 0.1 (0.0-0.4) X10*3/uL Baso # (Auto) 0.1 (0.0-0.2) X10*3/uL Abs Immat Gran (auto) 0.15 H (0.00-0.03) X10*3/uL Absolute Neuts (auto) 12.6 H (2.0-8.3) x10*3/uL Absolute Nucleated RBC 0.000 (0.0-0.012) X10*3/uL Nucleated RBC % (auto) 0.0 (0.0-0.2) /100WBC Sodium 138 (135-145) mmol/L Potassium 4.4 (3.3-5.1) mmol/L Chloride 99 (96-108) mmol/L Carbon Dioxide 33 H (22-29) mmol/L Anion Gap 10 L (12-20) BUN 20 H (9-16) mg/dL Creatinine 0.78 (0.5-1.4) mg/dL Estim Creat Clear Calc 44.7 Estimated GFR > 60 Random Glucose 95 (60-115) mg/dL Calcium 10.8 H (8.4-10.2) mg/dL Magnesium 2.6 (1.6-2.6) mg/dL Total Bilirubin 0.5 (0.0-1.0) mg/dL AST 42 H (5-31) U/L ALT 38 H (0-31) U/L Alkaline Phosphatase 87 (39-117) U/L Total Protein 7.7 (6.5-8.0) g/dL Albumin 3.9 (3.5-5.0) g/dL Radiology Impression Discussion of test interpretation with radiology: I have reviewed the radiologist's reading. Radiologist Impression: Findings: The visualized deep veins are fully compressible with normal Doppler color flow and spectral tracings. No popliteal cyst. IMPRESSION: 1. Negative for bilateral lower extremity deep vein thrombosis. This document has been electronically signed by: Shantelle Sutherland MD on 08/30/2024 18:28:05 Discharge Plan Discharge Clinical Impression: Headache Patient Disposition: Home, Self-Care Instructions: Acute Headache (ED) Additional Instructions: Your workup in the ER today was reassuring. It is important that you follow-up with your COVID in clinic to follow your INR You may use Tylenol as needed for pain Follow-up with your primary doctor, return for new or worsening symptoms Prescriptions: No Action chlorhexidine gluconate 0.12 % mouthwash 15 ml buccal BID 14 Days Qty: 420 1RF Advair HFA 230-21 mcg/actuation HFA aerosol inhaler 2 puff inhalation BID 90 Days Qty: 36 4RF codeine-guaifenesin 10-100 mg/5 mL liquid 10 ml PO Q4-6H PRN (Reason: cough) Qty: 473 0RF levalbuterol tartrate [Xopenex HFA] 45 mcg/actuation HFA aerosol inhaler 2 puff inhalation Q6H PRN (Reason: shortness of breath or wheezing) 90 Days Qty: 45 3RF albuterol sulfate 90 mcg/actuation HFA aerosol inhaler 2 inh inhalation Q6H PRN (Reason: shortness of breath or wheezing) 90 Days Qty: 3 3RF furosemide 40 mg tablet 80 mg PO BID Qty: 360 3RF H-Wcjp-Clrueqz 250 mg tablet 1 tab PO BID 1 Days Qty: 2 0RF metoprolol succinate [Toprol XL] 50 mg tablet extended release 24 hr 50 mg PO BID Qty: 180 3RF levocetirizine 5 mg tablet 5 mg PO DAILY 90 Days Qty: 90 3RF prednisone 2.5 mg tablet 2.5 mg PO DAILY 90 Days Qty: 90 3RF Rx Instructions: On odd days trazodone 50 mg tablet 100 mg PO BEDTIME Qty: 180 3RF meclizine 25 mg tablet 25 mg PO Q8H PRN (Reason: dizziness) 10 Days Qty: 30 0RF rosuvastatin 10 mg tablet 10 mg PO ONCE Qty: 90 2RF potassium chloride 20 mEq tablet extended release 40 meq PO DAILY Qty: 60 3RF montelukast 10 mg tablet 10 mg PO DAILY Qty: 90 3RF levothyroxine [Synthroid] 25 mcg tablet 25 mcg PO MOTUWETHFR@0600 warfarin [Jantoven] 2.5 mg Tablet 1.5 mg PO DAILY@1800 Patient Comments: Dose ranges based on INR goal of 1.5-2. levothyroxine [Synthroid] 25 mcg Tablet 50 mcg PO SUSA@0600 ferrous sulfate 325 mg (65 mg iron) Tablet 325 mg PO DAILY docusate sodium 100 mg Capsule 100 mg PO DAILY acetaminophen 325 mg Tablet 650 mg PO Q6H PRN (Reason: Pain/Fever) biotin 1 mg Tablet 3 mg PO DAILY magnesium hydroxide [Milk of Magnesia] 400 mg/5 mL Suspension 30 ml PO NEEDED PRN (Reason: Constipation, No BM in 3 days ) bisacodyl 10 mg Suppository 10 mg WV DAILY PRN (Reason: No BM x3 days MoM not effective) Enema 19-7 gram/118 mL Enema 118 ml WV NEEDED PRN (Reason: No result from MoM and Bisacodyl Supp) ondansetron 4 mg Tablet,Disintegrating 4 mg PO Q4H PRN (Reason: Nausea/Vomiting) fluticasone propionate 50 mcg/actuation spray,suspension 2 spray intranasal DAILY guaifenesin 400 mg Tablet 400 mg PO TID simethicone [Gas Relief (simethicone)] 80 mg Tablet,Chewable 80 mg PO QIDWMHS Qty: 20 0RF cefuroxime axetil 500 mg tablet 500 mg PO BID Qty: 8 0RF oxycodone 5 mg tablet 5 mg PO Q8H PRN (Reason: pain (scale score 7-10)) Qty: 10 0RF Rx Instructions: Partial Fill upon patient request. diazepam 5 mg tablet 5 mg PO BID PRN (Reason: anxiety) Qty: 14 0RF (DME) nebulizers Misc See Rx Instructions .Route Rx Instructions: As directed (DME) CPAP Machine/Device Device See Rx Instructions .Route Rx Instructions: As directed (DME) Oxygen Home Use Kit See Rx Instructions .Route Rx Instructions: As directed epinephrine 0.3 mg/0.3 mL auto-injector 0.3 mg IM USEASDIRECTD PRN (Reason: Allergic Reaction) acetylcysteine 100 mg/mL (10 %) solution 2 ml inhalation BID 30 Days Qty: 120 5RF Print Language: [place]
[2024-08-30 12:33] LABS: MANUAL DIFF FLAG NO
[2024-08-30 12:35] LABS: Basophils Absolute Auto 0.1 X10*3/uL (0.0-0.2); Basophils Percent Auto 0.5 % (0-2); Eosinophils Absolute Auto 0.1 X10*3/uL (0.0-0.4); Eosinophils Percent Auto 0.5 % (0-4); Hematocrit 37.5 % (37.0-47.0); Hemoglobin 12.5 g/dl (12.0-16.0); Imm Gran Abs Auto 0.15 X10*3/uL (0.00-0.03); Lymphocytes Absolute Auto 0.8 X10*3/uL (1.2-4.9); Lymphocytes Percent Auto 5.4 % (20-40); Mean Corpuscular HGB Conc 33.3 g/dl (31.0-35.0); Mean Corpuscular Hemoglobin 33.3 pg (27.0-33.0); Mean Platelet Volume 10.8 fL (9.4-12.3); Neutrophils Absolute Auto 12.6 x10*3/uL (2.0-8.3); Neutrophils Percent Auto 85.6 % (45-73); Platelet Count 239 X10*3/uL (160-400); Red Blood Count 3.75 X10*6/uL (4.20-5.50); Red Cell Distribution Width 14.1 % (11.0-16.0); White Blood Count 14.7 X10*3/uL (4.8-10.8)
[2024-08-30 12:51] LABS: Alanine Aminotransferase 38 U/L (0-31); Albumin Level 3.9 g/dL (3.5-5.0); Alkaline Phosphatase 87 U/L (39-117); Anion Gap 10 (12-20); Aspartate Amino Transferase 42 U/L (5-31); Bilirubin Total 0.5 mg/dL (0.0-1.0); Blood Urea Nitrogen 20 mg/dL (9-16); Calcium 10.8 mg/dL (8.4-10.2); Carbon Dioxide 33 mmol/L (22-29); Chloride 99 mmol/L (96-108); Creatinine Clr Calc Pharmacy 44.7; Estimated Glomerular Filt Rate > 60; Glucose Random 95 mg/dL (60-115); Magnesium 2.6 mg/dL (1.6-2.6); Potassium 4.4 mmol/L (3.3-5.1); Sodium 138 mmol/L (135-145); Total Protein 7.7 g/dL (6.5-8.0)
--- OUTSIDE RECORDS SUMMARY | 2024-08-30 13:07 | XMS_ITS | Encounter Summary ---
Author Organization [facility] Address [address] [place] [address] Care Team Providers Care Import/Export Specialist Name Role Phone Brennan Burnett MD Primary Care Provider [phone] Reason for Visit * Reason Onset Date [...] (Late st Contact Info) Description 08/08/2024 Telephone [facility] Speech Therapy [address] [address] Daphne Alarcon, POACHER OPERATOR Memory Loss (Returned pt call from 08/07 [...] Assigned at Female 06/15/2024 3:38 PM EST Legal Sex Female 11:20 PM EST Gender Identity Female 06/15/2024 3:38 PM EST Sexual Orientation Straight 06/15/2024 3: 38 PM EST documented as of this encounter Functional Status * Are you deaf or do you have serious difficulty hearing? Answer Date of Assessment Author No 06/15/2024 2:25 PM Sheila Luis RN * Are you blind or do you have serious difficulty seeing, even when wearing glasses? Answer Date of Assessment Author No 06/15/2024 2:25 PM Sheila Luis RN * Do you have serious difficulty walking or climbing stairs? Answer Date of Assessment Author No 06/15/2024 2:25 PM Sheila Luis RN * Do you have serious difficulty dressing or bathing? Answer Date of Assessment Author No 06/15/2024 2:25 PM Sheila Luis RN * Because of a physical, mental, or emotional condition, do you have serious difficulty doing errandsalone such as visiting the doctor? Answer Date of Assessment Author No 06/15/2024 2:25 PM Sheila Luis RN documented as of this encounter Mental Status * Because of a physical, mental, or emotional condition, do you have serious difficulty concentrating, remembering, or making decisions? (5 years old or older) Answer Entry Date Author No 06/15/2024 2:25 PM Sheila Luis RN documented in this encounter Plan of Treatment Upcoming Encounters Date Type Department Care Team (Late st Contact Info) Description 09/09/2024 3:30 PM EST Treatment [facility] Speech Therapy [address] [phone] Daphne Alarcon, POACHER OPERATOR documented as of this encounter Goals Goal Patient Goal Type Associated Problems Recent Progress Patient-Stated? Author LTG General No Daphne Alarcon, POACHER OPERATOR Note: Pt will improve cognitive linguistic function to participate and communicate in iADLs mod I ST STGs General No Daphne Alarcon, POACHER OPERATOR Note: Pt will participate with development of [...] on filedocumented in this encounter Care Teams Import/Export Specialist Relationship Specialty Start Date End Date Brennan Burnett MD [address] [place] [address] PCP - General 05/06/24 documented as of this encounter
--- OUTSIDE RECORDS SUMMARY | 2024-08-30 13:07 | XMS_ITS | Clinical Summary ---
Author Organization [facility] Address [address] [place] [address] Care Team Providers Care Journalist Name Role Phone Caitlyn Bowie MD Primary Care Provider [phone] Allergies Active Allergy Reactions Criticality Noted Date [...] Breath High 05/09/2008 Bronchospasm or Wheezing Ipratropium [place] Unknown/Patient and Family Unable to Define Medium [...] 1 capsule by mouth daily. Active B Rjtimbn-I-Cfibf Acid (STRESS 500 B-COMPLEX PO) Take 1 [...] age to complete this topic Care Teams Journalist Relationship Specialty Start Date End Date Caitlyn Bowie MD [facility] [place] [address] PCP - General Internal Medicine 03/20/23
--- OUTSIDE RECORDS SUMMARY | 2024-08-30 13:07 | XMS_ITS | Encounter Summary ---
Author Organization [facility] Address [address] [place] [address] Care Team Providers Care Powerhouse Engineer Name Role Phone Pcp, No Primary Care Provider Brennan Mario MD Primary Care Provider [phone] Caitlyn Bowie MD Primary Care Provider [phone] Encounter Details Date Type Department Care Team (Late st Contact Info) Description 01/04/2022 Scanned Document [facility] Neurology Ophthalmology [address] [phone] Yary Whitten DO [address] [place] [id number] Social History Tobacco Use Types Packs/Day [...] on filedocumented in this encounter Care Teams Powerhouse Engineer Relationship Specialty Start Date End Date Pcp, No PCP - General General Medicine 10/04/21 07/18/22 Brennan Burnett MD [address] [place] [address] PCP - General 07/19/22 03/19/23 Caitlyn Bowie MD [address] [place] [address] PCP - General Internal Medicine 03/20/23 documented as of this encounter
--- OUTSIDE RECORDS SUMMARY | 2024-08-30 13:07 | XMS_ITS | Clinical Summary ---
Author Organization [address] [facility] Address [address] [place] [address] Phone Care Team Providers Care Apartment Maintenance Manager Name Role Phone Brennan Burnett Primary Care Provider [phone] Allergies Active Allergy Reactions Criticality Noted Date Comments Amlodipine Other Medium 11/23/2020 flushing Other reaction(s): Other (See Comments) flushing Other reaction(s): Other (See Comments) flushing flushing Avanafil Anaphylaxis,Unknown High 07/27/2022 Other reaction(s): Unknown Avocado High 04/15/2013 Other reaction(s): Resp Distress Avocado (Laurus Persea) Anaphylaxis,Shor tne ss of breath,Unknown High 04/15/2013 Other reaction(s): Resp Distress Other reaction(s): Resp Distress Other reaction(s): Resp Distress Other reaction(s): Resp Distress Other reaction(s): Resp Distress Azithromycin 03/05/2013 Barium Iodide Unknown,Anaphylaxis ,Other,Rash High 01/19/2016 Other Reaction(s): Rash/Dermatitis Other reaction(s): Throat Closes Other reaction(s): Throat Closes Other reaction(s): Throat Closes Other reaction(s): Throat Closes Barium Sulfate Unknown 09/16/2016 Bee Pollen 04/15/2013 Other reaction(s): Resp Distress Allergic to bee stings Bee Venom Protein (Honey Bee) 09/06/2021 Ciprofloxacin 08/26/2014 Patient reported that she couldn't walk Clarithromycin Wheezing High 11/07/2012 Other Reaction(s): Rash/Dermatitis Diatrizoate Shiloh-Diatrizoat Sod 09/16/2016 Diatrizoate Meglumine Swelling High 09/23/2015 Throat tightness Diclofenac Anaphylaxis,Wheezin g High 11/07/2012 Other Reaction(s): Rash/Dermatitis Diclofenac Sodium 09/26/2014 Erythromycin Anaphylaxis,Wheezin g High 11/07/2012 Other Reaction(s): Rash/Dermatitis Gentamicin Anaphylaxis,Wheezin g High 11/07/2012 Other Reaction(s): Rash/Dermatitis Iodinated Contrast Media Swelling,Wheezing High 0507/2012 Other Reaction(s): Rash/Dermatitis Isosorbide Mononitrate Headache 11/23/2020 Levofloxacin Nausea And Vomiting Medium 02/18/2013 painful tight joints Metronidazole High 10/17/2014 Other reaction(s): Resp Distress Visual changes, back pain, weakness Mold High 02/18/2013 Other reaction(s): Resp Distress Morphine Nausea And Vomiting Medium 09/26/2014 Other Reaction(s): OTHER Flushed, almost passed out Moxifloxacin Swelling,Wheezing,A naphylaxis High 11/07/2012 Other Reaction(s): Rash/Dermatitis Other reaction(s): Rash Other Other 05/09/2008 muscles relaxers Some muscle relaxers Penicillins Anaphylaxis,Wheezin g High 11/07/2012 Other Reaction(s): Rash/Dermatitis Procaine 01/19/2016 Shrimp Cough,Itching,Unkno wn Medium 12/16/2018 Sulfa (Sulfonamide Antibiotics) Anaphylaxis,Wheezin g High 11/07/2012 Other Reaction(s): Rash/Dermatitis Sulfur Hives,Itching,Rash Low 05/09/2008 Vancomycin Anaphylaxis,Wheezin g High 11/07/2012 Other Reaction(s): Rash/Dermatitis Medications ASCORBIC ACID PO Take by mouth. Activ e ELDERBERRY FRUIT ORAL Elderberry 575 MG/5ML Syrup Take ??by mouth. - Oral Active epinephrine (EPIPEN 2-KORI INJ) Inject as directed. Active IRON, FERROUS SULFATE, ORAL Take by mouth. A ctive levothyroxine (SYNTHROID, LEVOTHROID) 25 mcg tablet Take 25 mcg by mouth daily. 1 tab daily 2 tabs Sat. And Sun Active lifitegrast 5 % dropperette apply to the eye 2 times daily. 1 g - Ophthalmic Active meclizine (ANTIVERT) 25 mg tablet Take 25 mg by mouth as needed. Active metoprolol succinate (TOPROL-XL) 50 mg 24 hr tablet Take 50 mg by mouth daily. Active montelukast (SINGULAIR) 10 mg tablet Take 1 Tab by mouth at bedtime. 8 Active oxymetazoline HCl (NASAL SPRAY SINUS NASL) by Nasal route. Active saccharomyces boulardii (FLORASTOR) 250 mg capsule Take by mouth. Acti ve traZODone (DESYREL) 100 mg tablet Take 100 [...] by mouth Every 4 hours as needed. 8 Active cetirizine (ZyrTEC) 10 mg tablet Take [...] (two) times a day. for 7 days 4 Active fluticasone propionate (FLONASE) 50 mcg/actuation nasal spray Administer 1 spray into affected nostril(s) daily. Active folic acid (FOLVITE) 1 mg tablet Take 1 tablet (1 mg total) by mouth daily. 4 Active potassium chloride (KLOR-CON) 20 mEq packet DISSOLVE AND TAKE TWO PACKETS BY MOUTH EVERY DAY 4 Active famotidine (PEPCID) 40 mg tabletIndicatio ns:Gastroesopha geal reflux disease, unspecified whether esophagitis present Take 1 tablet (40 mg total) by mouth 2 (two) times a day. 60 each 11 5 08/23/19 26 Active fluticasone propion-salmete roL (Advair HFA) 230-21 mcg/actuation inhaler INHALE 2 PUFFS TWO TIMES A DAY 0 08/26/19 25 Discontin ued(Thera py completed ) furosemide (LASIX) 20 mg tablet Take 20 mg by mouth daily. 08/26/19 25 Discontin ued(Thera py completed ) magnesium oxide 500 mg capsule Take by mouth. 25 Discontin ued(Thera py completed ) rosuvastatin calcium (ROSUVASTATIN ORAL) Take by mouth. 08/26/19 25 Discontin ued(Thera py completed ) cefpodoxime (VANTIN) 200 mg tablet TAKE ONE TABLET BY MOUTH EVERY 12 HOURS WITH FOOD 4 08/26/19 25 Discontin ued(Thera py completed ) spironolactone (ALDACTONE) 25 mg tablet Take 1 tablet (25 mg total) by mouth 1 (one) time each day. 4 08/26/19 25 Discontin ued(Thera py completed ) Active Problems Problem Noted Date Diagnosed Date [...] 20 mg as needed by her previous scrap worker which she has taken sporadically. I have asked her to take this daily to see if this improves her symptoms and she has a follow-up appointment with Dr. Shah on September 16 which she will keep. We also had a long conversation regarding the fact that she is seeing 3 different scrap worker for the same problems. We informed her [...] continues to see Dr. Avalos or her scrap worker at [facility]. She verbalized understanding of this and [...] neuropathic pain 12/07/2016 Gastroesophageal reflux disease 11/17/2016 Assessment & Plan (08/23/2024 1:52 PM EST): Orders: famotidine (PEPCID) 40 mg tablet; Take 1 tablet (40 mg total) by mouth 2 (two) times a day. Osteoporosis 11/17/2016 Insomnia 10/18/2016 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 Elevated liver enzymes 09/23/2015 Cataract 08/26/2014 Glaucoma suspect 08/26/2014 Optic neuropathy 08/26/2014 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 Akathisia 04/15/2013 Postconcussion syndrome 02/18/2013 Encounters Date Type Department Care Team Description 08/26/2024 10:30 AM EST Telemedicine [facility] [address] [place] [phone] Ayanna Jaffe MD Anxiety (Primary Dx); Memory change; Gait abnormality; White matter lesion of central nervous system 08/23/2024 1:20 PM EST Office Visit Gastroenterology - [address] [phone] Saima Amor, TRAVEL RN Gastroesophageal reflux disease, unspecified whether esophagitis present (Primary Dx); Constipation, unspecified constipation type 08/19/2024 Telephone [facility] [address] [place] [phone] Daphne Alarcon, LAST MODEL DEPARTMENT SUPERVISOR returning pt call 08/08/2024 Telephone [facility] [address] [phone] Daphne Alarcon, LAST MODEL DEPARTMENT SUPERVISOR Memory Loss (Returned pt call from 08/07 about recent missed visit. Pt is not interested in in person f/u right now due to cold weather and other medical issues. She will f/u with medical team if she wants to address cognitive status in future) 07/04/2024 Telephone Gastroenterology - [address] [phone] Tim Gomes MD 07/01/2024 Telephone Gastroenterology - [address] [phone] Tim Gomes MD 06/20/2024 9:30 AM EST Evaluation [facility] [address] [place] [phone] Daphne Alarcon, LAST MODEL DEPARTMENT SUPERVISOR Cognitive communication disorder (Primary Dx); White matter lesion of central nervous system; Unsp symptoms and signs w cognitive functions and awareness; Gait abnormality 06/20/2024 Plan of Care Documentation [facility] [address] [phone] 06/15/2024 11:51 AM EST - 06/15/2024 4:05 PM EST Emergency [facility] Emergency [address] [place] [address] Jovana Cruz MD Pain (Primary Dx); Leg pain, posterior, left Discharge Disposition: Home or Self Care from Last 3 Months Immunizations Name Administration [...] PROCEDURE: HISTORICAL TONSILLECTOMY OTHER SURGICAL HISTORY PROCEDURE: NM RMVL LUNG XCP TOT PNEUMONECTOMY SLEEVE LOBECTOMY; [...] pathology report UPPER GASTROINTESTINAL ENDOSCOPY 05/03/2015 PROCEDURE: NM UPPER GI ENDOSCOPY PERFORMED MITRAL CLIP PROCEDURE Medical History Medical History Date Comments Akathisia 04/15/2013 DX:Akathisia Anxiety 12/07/2016 DX:Anxiety Bronchiectasis ([facility]) 08/08/2017 DX:Bron chiectasis ([facility]) Cataract 08/26/2014 DX:Cataract Chronic obstructive pulmonar y disease ([facility]) 04/13/2017 DX:Chronic obstructive pulmo nary disease ([facility]) 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 DX:Complica cole migraine Congestive heart failure ([facility]) 04/04/2017 DX:Congestive heart failure (HCC) History [...] Mx LLL resection, Chemo, RT, Cisplatin, Vinorelbine [phone] 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 DX:Antiphospholipid [...] Orientation Straight 06/15/2024 3: 38 PM EST Obstetrics History Last Filed Vital Signs Vital Sign Reading Time Taken Comments Blood Pressure 120/55 06/15/2024 2:56 PM EST Pulse 84 06/15/2024 2:56 PM EST Temperature 36.8 ??C (98.2 ??F) 06/15/2024 2:56 PM ES T Respiratory Rate 16 06/15/2024 2:56 PM EST Oxygen Saturation 99% 06/15/2024 2:56 PM EST Inhaled Oxygen Concentration - - Weight 58.5 kg (129 lb) 08/23/2024 1:24 PM EST Height 160 cm (5' 3 ) 08/23/2024 1:24 PM EST Body Mass Index 22.85 08/23/2024 1:24 PM EST Plan of Treatment Upcoming Encounters Date Type Department Care Team (Late st Contact Info) Description 09/09/2024 3:30 PM EST Treatment [facility] [address] [phone] Daphne Alarcon, LAST MODEL DEPARTMENT SUPERVISOR Health Maintenance Due Date Last Done Comments [...] or Tdap) 02/27/2026 02/28/2016, 02/17/2016 Pneumococcal Vaccine: 50+ Years Completed 08/31/2021, 03/25/2016, 09/17/2015, Additional history [...] patient's age to complete this topic Meningococcal B Vacine Aged Out No lo nger eligible based on patient's age to complete this topic RSV Immunization Patients Under 20 months Aged Out No longer eligible based on patient's age to complete this topic Varicella Vaccines Aged Out No longer eligible based on patient's age to complete this topic Goals Goal Patient Goal Type Associated Problems Recent Progress Patient-Stated? Author ST [facility] General No Daphne Alarcon, LAST MODEL DEPARTMENT SUPERVISOR Note: Pt will improve cognitive linguistic function to participate and communicate in iADLs mod I ST STGs General No Daphne Alarcon, LAST MODEL DEPARTMENT SUPERVISOR Note: Pt will participate with development of [...] PM EST) WBC 13.2(H) 4.8 - 10.8 K/mcL LAB HEMETOLOGY METHOD 06/15/2024 1:39 PM EST [facility] RBC 3.70(L) 3.80 - 4.80 M/mcL LAB HEMETOLOGY METHOD 06/15/2024 1:39 PM EST [facility] Hemoglobin 12.0 11.5 - 16.0 g/dL LAB HEMETOLOGY METHOD 06/15/2024 1:39 PM [facility] Hematocrit 37.5 35.0 - 47.0 % LAB HEMETOLOGY METHOD 06/15/2024 1:39 PM [facility] MCV 100.3(H) 79.0 - 98.0 FL LAB HEMETOLOGY METHOD 06/15/2024 1:39 PM [facility] MCH 32.1(H) 27.0 - 32.0 pcg LAB HEMETOLOGY METHOD 06/15/2024 1:39 PM [facility] MCHC 32.0 32.0 - 37.0 g/dL LAB HEMETOLOGY METHOD 06/15/2024 1:39 PM [facility] RDW 14.3 11.0 - 15.0 % LAB HEMETOLOGY METHOD 06/15/2024 1:39 PM [facility] Platelets 201 130 - 400 K/mcL LAB HEMETOLOGY METHOD 06/15/2024 1:39 PM [facility] MPV 11.1(H) 7.0 - 11.0 FL LAB HEMETOLOGY METHOD 06/15/2024 1:39 PM [facility] NRBC 0.0 <1.0 % LAB HEMETOLOGY METHOD 06/15/2024 1:39 PM [facility] NRBC Absolute 0.00 <0.10 K/mcL LAB HEMETOLOGY METHOD 06/15/2024 1:39 PM [facility] Neutrophils Relative 85.5 % LAB HEMETOLOGY METHOD 06/15/2024 1:39 PM [facility] Lymphocytes Relative 4.8 % LAB HEMETOLOGY METHOD 06/15/2024 1:39 PM [facility] Monocytes Relative 7.4 % LAB HEMETOLOGY METHOD 06/15/2024 1:39 PM [facility] Eosinophils Relative 1.1 % LAB HEMETOLOGY METHOD 06/15/2024 1:39 PM EST [facility] Basophils Relative 0.4 % LAB HEMETOLOGY METHOD 06/15/2024 1:39 PM EST [facility] Immature Granulocytes Relative 0.8 % LAB HEMETOLOGY METHOD 06/15/2024 1:39 PM [facility] Neutrophils Absolute 11.28(H) 1.50 - 7.00 K/mcL LAB HEMETOLOGY METHOD 06/15/2024 1:39 PM EST [facility] Lymphocytes Absolute 0.63(L) 1.00 - 5.00 K/mcL LAB HEMETOLOGY METHOD 06/15/2024 1:39 PM [facility] Monocytes Absolute 0.98 0.20 - 1.00 K/mcL LAB HEMETOLOGY METHOD 06/15/2024 1:39 PM [facility] Eosinophils Absolute 0.14 0.00 - 0.50 K/mcL LAB HEMETOLOGY METHOD 06/15/2024 1:39 PM EST [facility] Basophils Absolute 0.05 0.00 - 0.20 K/mcL LAB HEMETOLOGY METHOD 06/15/2024 1:39 PM EST [facility] Immature Granulocytes Absolute 0.11(H) 0.00 - 0.03 K/mcL LAB HEMETOLOGY METHOD 06/15/2024 1:39 PM [facility] Blood Venous blood specimen / Unknown Venipuncture / Unknown 06/15/2024 1:26 PM EST 06/15/2024 1:31 PM EST us Jovana Cruz MD LAB BLOOD ORDERABLES Final Resul t [facility] [address] [place] [address], * (ABNORMAL) Protime-INR (06/15/2024 1:26 PM EST) Protime 22.9(H) 10.6 - 13.9 sec LAB COAGULATION METHOD 06/15/2024 1:43 PM EST [facility] INR 1.8 LAB COAGULATION METHOD 06/15/2024 1:43 PM [facility] Blood Venous blood specimen / Unknown Venipuncture / Unknown 06/15/2024 1:26 PM EST 06/15/2024 1:31 PM EST us Jovana Cruz MD LAB BLOOD ORDERABLES Final Resul t [facility] [address] [place] [address], * (ABNORMAL) Comprehensive metabolic panel (06/15/2024 1:26 PM EST) [facility] Sodium 140 133 - 145 mmol/L LAB CHEMISTRY METHOD 06/15/2024 2:10 PM [facility] Potassium 4.7 3.5 - 5.5 mmol/L LAB CHEMISTRY METHOD 06/15/2024 2:10 PM [facility] Chloride 102 96 - 110 mmol/L LAB CHEMISTRY METHOD 06/15/2024 2:10 PM [facility] CO2 34(H) 21 - 32 mmol/L LAB CHEMISTRY METHOD 06/15/2024 2:10 PM [facility] Anion Gap 4 3 - 11 LAB CHEMISTRY METHOD 06/15/2024 2:10 PM [facility] Glucose 95 70 - 100 mg/dL LAB CHEMISTRY METHOD 06/15/2024 2:10 PM [facility] BUN 29(H) 5 - 25 mg/dL LAB CHEMISTRY METHOD 06/15/2024 2:10 PM [facility] Creatinine 0.95 0.50 - 1.10 mg/dL LAB CHEMISTRY METHOD 06/15/2024 2:10 PM [facility] eGFR 60 >=60 mL/min/1. 73m2 LAB CHEMISTRY METHOD 06/15/2024 2:10 PM [facility] Comment:Calculation based on the??Chronic Kidney Disease Epidemiology Collaboration (CKD-EPI) equation refit??without adjustment for race. BUN/Creatinine Ratio 30.5 LAB CHEMISTRY METHOD 06/15/2024 2:10 PM [facility] Calcium 10.1 8.5 - 10.5 mg/dL LAB CHEMISTRY METHOD 06/15/2024 2:10 PM [facility] AST (SGOT) 35 10 - 42 unit/L LAB CHEMISTRY METHOD 06/15/2024 2:10 PM [facility] ALT (SGPT) 39 10 - 60 unit/L LAB CHEMISTRY METHOD 06/15/2024 2:10 PM [facility] Alkaline Phosphatase 83 42 - 121 unit/L LAB CHEMISTRY METHOD 06/15/2024 2:10 PM [facility] Total Protein 6.4 6.0 - 8.0 g/dL LAB CHEMISTRY METHOD 06/15/2024 2:10 PM [facility] Albumin 3.3 3.2 - 5.0 g/dL LAB CHEMISTRY METHOD 06/15/2024 2:10 PM [facility] Total Bilirubin 0.4 0.0 - 1.4 mg/dL LAB CHEMISTRY METHOD 06/15/2024 2:10 PM EST [facility] Blood Venous blood specimen / Unknown Venipuncture / Unknown 06/15/2024 1:26 PM EST 06/15/2024 1:32 PM EST us Jovana Cruz MD LAB BLOOD ORDERABLES Final Resul t [facility] [address] [place] [address], * Vascular US Duplex Lower Extremity Venous Left (06/15/2024 12:24 PM EST) Anatomical Region Laterality Modality Vascular, Abdomen Ultrasound 06/15/2024 12:2 0 PM EST Impressions 06/15/2024 12:20 PM EST Impression: No evidence of deep vein thrombosis in the left femoral-popliteal venous segment. [id number] -------- FINAL REPORT -------- Dictated By: Fawn Levin Dictated Date: 06/15/2024 12:20 ET Assigned Physician: Fawn Levin Reviewed and Electronically Signed By: Fawn Levin Signed Date: 06/15/2024 12:20 ET Workstation ID: [id number] Transcribed By: Self Edit Transcribed Date: 06/15/2024 [...] vein thrombosis in the leftfemoral-popliteal venous segment. 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
--- OUTSIDE RECORDS SUMMARY | 2024-08-30 13:07 | XMS_ITS ---
Author Organization [facility] Address [address] [facility] [address] [place] [address] Care Team Providers Care Manager Country Name Role Phone EVELIN RAMSAY Primary Care Provider Yenny Hou Unavailable [phone] Allergies Allergen (clinical drug ingredient) Drug/Non Drug [...] bedtime, 1/2 tab prn during the day [facility] 06/10/2014 Active Advair HFA 230-21MCG/ACT 2 Inhalation tw ice daily for -3 06/10/2014 Active EpiPen Active Meclizine HCl 25 MG 1 tablet as needed Orally [facility] 06/10/2014 Active Rosuvastatin Calcium 05/03/2024 Active predniSONE 2.5 MG Oral for 30 Active Singulair 10 MG 1 tablet Orally Once a day Active Metoprolol Succinate ER 50 MG 1 tablet Orally Once a day Active Synthroid 25MCG 1 ORAL daily for -3 [facility] 06/10/2014 Active Albuterol Sulfate (2.5 [...] Encounters Encounter Location Date Provider Diagnosis Total [address] [place] [address] 07/09/2024 Yenny Lovettva Urgency of urination R39.15 [...] Notes * TONIE WATSONOB:1945 (79 yo F)Acc No.[id number]:07/09/2024 PROGRESS NOTES Patient:?SHIRLEY CINDA Appointment Provider:?Yenny doan M.D. :1945???Age:79 Y???Sex:Female D ate:07/09/2024 Address:[address] [place] [address], [facility] Pcp:EVELIN RAMSAY Subjective: * Chief Complaints: * [...] ODORED DISCHARGE.?no?skin complaints.? * Medical History:? * X Ray Service Engineer History:?/ Para?2/2.?Sexual activity?not currently sexually active.?Last Pap [...] mm Hg, Temp: 98.0 F. * Examination: ???HOG CONFINEMENT SYSTEM MANAGER exam: ?EXTERNAL GENITALIA:?Normal female. No lesions, [...] Elizalde M.D. Date:?07/09/2024 Generated for Arely paige/Sebastian/Zacheryitting on:?08/30/2024 01:07 PM EST History and Physical Notes * [...] Category Sub-Category Detail Notes Category Not es HOG CONFINEMENT SYSTEM MANAGER exam CERVIX: surgically absent VAGINA: atrophic changes, er ythematous with yellow white discharge, pH>4.5, +whiff test EXTERNAL GENITALIA: Normal female. No le sions, erythema or discharge UTERUS: absent ADNEXA: surgically absent
--- OUTSIDE RECORDS SUMMARY | 2024-08-30 13:08 | XMS_ITS | Encounter Summary ---
Author Organization [facility] Address [address] [place] [address] Care Team Providers Care Director Blood Bank Name Role Phone Cristofer Hope MD Primary Care Provider Victorino Read MD Primary Care Provider UnavailSharon Kimbrough Primary Care Provider Unava ilBrennan Newman MD Primary Care Provider Unavailab Hayden Montes MD Unavailable [phone] Pallavi Flood NP Unavailable [phone] Caitlyn Bowie MD Primary Care Provider Unava chhaya Encounter Details Date Type Department Care Team Description 06/12/2017 Transfer Records Medical Records [address] [place] [address] Abstract, Provider Social History Tobacco Use Types [...] on filedocumented in this encounter Care Teams Director Blood Bank Relationship Specialty Start Date End Date Cristofer Hope MD PCP - General Internal Medicine 05/16/17 12/20/17 Victorino Martin MD PCP - General Internal Medicine 12/21/17 08/01/18 Sharon Vides PCP - General Internal Medicine 08/02/18 05/26/20 Brennan Burnett MD PCP - General Internal Medicine 05/27/20 12/07/21 Caitlyn Bowie MD [address] [place] [address] PCP - General Internal Medicine 12/08/21 Hayden Shah MD [address] [place], [place] [phone] Specialist Cardiovascular Disease 09/01/20 Pallavi Flood NP [address] [place], [place] [phone] Cardiology 09/01/20 documented as of this encounter
--- OUTSIDE RECORDS SUMMARY | 2024-08-30 13:08 | XMS_ITS | Patient Health Record ---
Author Organization [facility] Address [address] [place] [address] Care Team Providers Care Gas Well Pumper Name Role Phone Shruti Bowieberly Primary Care Provider Cristian Fountain Unavailable [phone] ALLERGIES Allergen (clinical drug ingredient) Drug/Non Drug [...] confirmed Irritable bowel syndrome characterized by constipation (405649432) Problem Diverticulitis (K57.92) Active confirmed Diverticulitis (821077666) Problem GERD (gastroesophageal reflux disease) (K21.9) Active confirmed Gastroesophagea l reflux disease (096418803) PLAN OF TREATMENT No Information Insurance Providers Payer Name Payer Address Payer Phone Subscriber Number Group Number Insured Name Patient Relationship to Insured Coverage Start Date Coverage End Date MEDICARE OF [place] [address] [place] [address] [phone] [id number] SHIRLEY CINDA Self - patient is the insured [employer] ATT[employer] CLAIMS [address] [place] [address] [id number] DANIEL WATSONE Self - patient is the [...] a nd Antiphospholipid antibody--has had DVT's and PE's---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 Hogan [facility]-has had EGD's with Dr. Gomes Pneumomias Hypothyroidism Surgical History Surgery Date(Month/Year) Tonsils and adenoids BOLA Lung cancer-[facility], [facility], Chemo 2008
--- OUTSIDE RECORDS SUMMARY | 2024-08-30 13:08 | XMS_ITS | Encounter Summary ---
Author Organization [facility] Address [address] [place] [address] Care Team Providers Care Sky Line Yarder Name Role Phone Brennan Burnett MD Primary Care Provider Unavailab Hayden Montes MD Unavailable [phone] Pallavi Flood NP Unavailable [phone] Caitlyn Bowie MD Primary Care Provider Unava ilable Encounter Details Date Type Department Care Team Description 08/25/2020 Liturgical Music Director Report Medical Records [address] [place] [id number] Abstract, Provider Social History Tobacco Use Types [...] on filedocumented in this encounter Care Teams Sky Line Yarder Relationship Specialty Start Date End Date Brennan Burnett MD PCP - General Internal Medicine 05/27/20 12/07/21 Caitlyn Bowie MD [address] [place] [address] PCP - General Internal Medicine 12/08/21 Hayden Shah MD [address] [place] [address] Specialist Cardiovascular Disease 09/01/20 Pallavi Flood NP [address] [place] [address] Cardiology 09/01/20 documented as of this encounter
--- OUTSIDE RECORDS SUMMARY | 2024-08-30 13:08 | XMS_ITS | Encounter Summary ---
Author Organization [facility] Address [address] [place] [address] Care Team Providers Care Lead Ruby On Rails Developer Name Role Phone Sharon Vides Primary Care Provider Brennan Castro MD Primary Care Provider Unavailab Hayden Montes MD Unavailable Pallavi Flood NP Unavailable [phone] Caitlyn Bowie MD Primary Care Provider Johnathon shaver Encounter Details Date Type Department Care Team Description 05/07/2019 [facility] Medical Records [address] [place] [id number] Abstract, Provider Social History Tobacco Use Types [...] on filedocumented in this encounter Care Teams Lead Ruby On Rails Developer Relationship Specialty Start Date End Date Sharon Vides PCP - General Internal Medicine 08/02/18 05/26/20 Brennan Burnett MD PCP - General Internal Medicine 05/27/20 12/07/21 Caitlyn Bowie MD [address] [place] [address] PCP - General Internal Medicine 12/08/21 Hayden Shah MD [address] [place] [address] Specialist Cardiovascular Disease 09/01/20 Pallavi Flood NP [address] [place] [address] Cardiology 09/01/20 documented as of this encounter
--- OUTSIDE RECORDS SUMMARY | 2024-08-30 13:08 | XMS_ITS | Encounter Summary ---
Author Organization [facility] Address [address] [place] [address] Care Team Providers Care Banbury Operator Name Role Phone Brennan Burnett MD Primary Care Provider Unavailab Hayden Montes MD Unavailable [phone] Pallavi Flood NP Unavailable [phone] Caitlyn Bowie MD Primary Care Provider Unava ilable Encounter Details Date Type Department Care Team Description 09/15/2020 [facility] Medical Records [address] [place] [address] Social History Tobacco Use Types Packs/Day Years [...] on filedocumented in this encounter Care Teams Banbury Operator Relationship Specialty Start Date End Date Brennan Burnett MD PCP - General Internal Medicine 05/27/20 12/07/21 Caitlyn Bowie MD [address] [place] [address] PCP - General Internal Medicine 12/08/21 Hayden Shah MD [address] [place] [address] Specialist Cardiovascular Disease 09/01/20 Pallavi Flood NP [address] [place] [address] Cardiology 09/01/20 documented as of this encounter
--- OUTSIDE RECORDS SUMMARY | 2024-08-30 13:08 | XMS_ITS | Clinical Summary ---
Author Organization [facility] Address [address] [place] [address] Care Team Providers Care Career Technical Counselor Name Role Phone Hayden Shah MD Unavailable Pallavi Flood NP Unavailable [phone] Caitlyn Bowie MD Primary Care Provider Unava ilable Allergies Active Allergy Reactions Severity Noted Date Comments Avelox Anaphylaxis 02/26/2013 Other reaction(s): Rash Avocado High 04/15/2013 Other reaction(s): Resp Distress Azithromycin 03/05/2013 Barium Iodide Rash/Dermatitis High 01/19/2016 Other reaction(s): Throat Closes Barium-Containing Compounds 09/16/2016 Bee Pollen 04/15/2013 Other reaction(s): Resp Distress Allergic to bee stings Bee Stings 02/18/2013 Ciprofloxacin 08/26/2014 Patient reported that she couldn't walk Clarithromycin Rash/Dermatitis,SOB, Wheezing High 11/07/2012 Diatrizoate Swelling/Edema High 09/23/2015 Throat tightness Diclofenac Anaphylaxis,Rash/Donta m atitis,SOB, Wheezing High 11/07/2012 Diclofenac Sodium 09/26/2014 Erythromycin Anaphylaxis,Rash/Donta m atitis,SOB, Wheezing High 11/07/2012 Gastrografin 09/16/2016 Gentamicin Anaphylaxis,Rash/Donta m atitis,SOB, Wheezing High 11/07/2012 Iv Contrast Dye Rash/Dermatitis,Swel l ing/Edema,SOB, Wheezing High 11/07/2012 Levofloxacin Nausea and Vomiting Medium 02/18/2013 painful tight joints Metronidazole High 10/17/2014 Other reaction(s): Resp Distress Visual changes, back pain, weakness Mold High 02/18/2013 Other reaction(s): Resp Distress Morphine Nausea and Vomiting,OTHER Medium 09/26/2014 Flushed, almost passed out Moxifloxacin Rash/Dermatitis,Swel l ing/Edema,SOB, Wheezing High 11/07/2012 Other (No Interaction Warnings) 04/15/2013 Other reaction(s): Mental Status Change Some muscle relaxers Penicillins Anaphylaxis,Rash/Donta m atitis,SOB, Wheezing High 11/07/2012 Procaine 01/19/2016 Sulfa Drugs Anaphylaxis,Rash/Donta m atitis,SOB, Wheezing High 11/07/2012 Vancomycin Anaphylaxis,Rash/Donta m atitis,SOB, Wheezing High 11/07/2012 Medications Medication Sig Dispensed Refills Start Date End Date Status EPINEPHrine (EPIPEN 2-KORI IJ) Inject as directed. 0 Active Magnesium 500 MG Cap Take by mouth. 0 Active Meclizine HCl 25 MG Tab Take 25 mg by mouth as needed. 0 Active metoprolol (TOPROL-XL) 50 MG 24 hr tablet Take 50 mg by mouth daily. 0 Active Saccharomyces boulardii (PROBIOTIC) 250 MG Cap Take by mouth. 0 Active levothyroxine (SYNTHROID, LEVOTHROID) 25 MCG tablet Take 25 mcg by mouth daily. 1 tab daily 2 tabs Sat. And Sun 0 Active warfarin (COUMADIN) 1 MG tablet Take 1 mg by mouth See Admin Instructions. May cause heavy bleeding. Take at same time every day. Do not change dietary habits. 0 Active Cetirizine HCl 10 MG Cap Take by mouth. 0 Active Lifitegrast 5 % Solution apply to the eye 2 times daily. 1 g 0 Active montelukast (SINGULAIR) 10 MG tablet Take 1 Tab by mouth at bedtime. 90 Tab 3 05/11/2018 Active Misc. Devices (ACAPELLA) Misc 1 Device by Does not apply route 4 times daily for 30 days. 1 Each 0 06/22/2018 Active Oxymetazoline HCl (NASAL SPRAY SINUS NA) by Nasal route. 0 Active Elderberry 575 MG/5ML Syrup Take by mouth. 0 Active trazodone (DESYREL) 100 MG tablet Take 100 mg by mouth at bedtime. 0 Active Ascorbic Acid (VITAMIN C CR OR) Take by mouth. 0 Active torsemide (DEMADEX) 20 MG tablet Take 1 Tab by mouth daily. 0 09/02/2020 Active furosemide (LASIX) 20 MG tablet Take 20 mg by mouth daily. 0 Active fluticasone-salmeterol (ADVAIR HFA) 230-21 MCG/ACT inhaler Inhale 2 Puffs into the lungs 2 times daily. 0 Active omeprazole (PRILOSEC) 40 MG capsule Take 40 mg by mouth daily. 0 Active ROSUVASTATIN CALCIUM OR Take by mouth. 0 Active Ferrous Sulfate (IRON OR) Take by mouth. 0 Active BACLOFEN OR Take by mouth. 0 Active Active Problems Problem Noted Date Shortness of breath 09/02/2020 Last Assessment & Plan: Clinically she appears quite well. Her lungs are clear, she has no bilateral lower extremity edema, and I do not appreciate any JVD. Her weight is stable. She reports abdominal bloating. She has been prescribed torsemide 20 mg as needed by her previous lawn and garden technician which she has taken sporadically. I have asked her to take this daily to see if this improves her symptoms and she has a follow-up appointment with Dr. Shah on September 16 which she will keep. We also had a long conversation regarding the fact that she is seeing 3 different lawn and garden technician for the same problems. We informed her [...] continues to see Dr. Avalos or her lawn and garden technician at [facility]. She verbalized understanding of this and expressed her interest in transferring her care to our practice. I do not believe her pericardial effusion is contributing to her symptoms as there is no evidence of RV compromise. She has been advised to undergo the stress echocardiogram which was previously ordered. She will follow-up in a few weeks to see how her symptoms are. Hypertension 09/02/2020 Last Assessment & Plan: 104/58 in office today, well-controlled. Continue metoprolol and torsemide. Pericardial effusion 09/02/2020 Last Assessment & Plan: Small to moderate on echocardiogram. Pictures were not available for our review given this was done at another practice. I do not believe this is contributing to her symptoms. We will continue to monitor. Traumatic hematoma of right lower leg Status post split thickness skin graft 0 02/19/2019 Antiphospholipid antibody syndrome 12/24 Adrenal insufficiency 08/23/2018 Hyperparathyroidism 08/23/2018 Allergic rhinitis 08/23/2018 Osteoarthritis 08/23/2018 History of seizures 08/23/2018 Overview: Temporal lobe seizures MRSA infection 08/23/2018 Overview: 06/2009, s/p thoracotomy infection History of Mycobacterium avium complex i nfection 04/29/2018 Overview: 06/2018 Radiation-induced pulmonary fibrosis 01/2018 Bronchiectasis 08/08/2017 Restrictive lung disease 08/08/2017 Leg edema 08/08/2017 History of pulmonary embolism 05/15/2017 Chronic obstructive pulmonary disease Fibromyalgia 04/13/2017 Congestive heart failure 04/04/2017 History of deep vein thrombosis 04/04/20 17 Heterozygous factor V Leiden mutation History of lung cancer 04/04/2017 Overview: T2 N2 Mx LLL resection, Chemo, RT, Cisplatin, Vinorelbine 7970-6915 Obstructive sleep apnea syndrome 017 Overview: CPAP Pleural effusion 04/04/2017 Pulmonary hypertension 04/04/2017 Multiple pulmonary nodules 03/17/2017 Diverticulitis of sigmoid colon 12/16/19 17 Anxiety 12/07/2016 Hyperlipidemia 12/07/2016 Hypothyroidism 12/07/2016 Peripheral neuropathic pain 12/07/2016 Gastroesophageal reflux disease 11/18/19 17 Osteoporosis 11/17/2016 Insomnia 10/18/2016 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 History of rheumatic fever 12/12/2015 Overview: With [facility] Elevated liver enzymes 09/23/2015 Cataract 08/26/2014 Glaucoma suspect 08/26/2014 Optic neuropathy 08/26/2014 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 Akathisia 04/15/2013 Postconcussion syndrome 02/18/2013 Immunizations Name Administration Dates Next Due Influenza (>6 Months) Split Preservative Free Pneumoccoccal(Adult) Polysaccharide PPSV23 09/16 Tdap 02/17/2016 Family History Medical History Relation Name Comments Cirrhosis Father age 65 Cancer of the Lung Maternal Grandfather Cancer of the Lung Maternal Grandmother Cancer of the Lung Mother CAD,CKD,A AA,Cerebral Aneurysm, Thyroid disorder, age 78 bleeding disorder Paternal Grandmother di ed from excessive bleeding in childbirth Myeloproliferative Disorder [...] Assigned at Date Recorded Not on file Last Filed Vital Signs Vital Sign Reading Time Taken Comments Blood Pressure 115/81 12/30/2021 11:42 AM EDT Pulse 77 12/30/2021 11:42 AM EDT Temperature 36.2 ??C (97.2 ??F) 09/21/2020 8:30 AM ED T Respiratory Rate 16 09/21/2020 8:30 AM EDT Oxygen Saturation 96% 09/01/2020 2:48 PM EST Inhaled Oxygen Concentration - - Weight 59 kg (130 lb) 12/30/2021 11:42 AM EDT Height 160 cm (5' 3 ) 12/30/2021 11:42 AM EDT Body Mass Index 23.03 12/30/2021 11:42 AM EDT Plan of Treatment Health Maintenance Due Date Last Done Comments DEPRESSION SCREEN 1955 CHOLESTEROL SCREENING 1963 MAMMOGRAM 1983 SHINGLES VACCINE (1 of 2) 1993 BONE DENSITY SCREENING 2008 FALL RISK ASSESSMENT 2008 Covid-19 Vaccine (2022-2 4 season) 2024 09/03/2020, 08/06/2020 INFLUENZA (#1) 2024 04/11/2018, 04/10, 04/18/2016 DTAP/TDAP/TD (3 - Td or Tdap) 02/27/2026 02/28/2016, 02/17/2016 PNEUMOCOCCAL VACCINE Completed 03/25/2016, 09/17/2015, 04/21/2014, Additional history exists Care Teams Career Technical Counselor Relationship Specialty Start Date End Date Caitlyn Bowie MD [address] [place] [address] PCP - General Internal Medicine 12/08/21 Hayden Shah MD [address] [place] [address] Specialist Cardiovascular Disease 09/01/20 Pallaiv Flood NP [address] [place] [address] [id number] Cardiology 09/01/20
--- OUTSIDE RECORDS SUMMARY | 2024-08-30 13:08 | XMS_ITS | Encounter Summary ---
Author Organization [facility] Address [address] [place] [address] Care Team Providers Care Real Estate Office Manager Name Role Phone Cristofer Hope MD Primary Care Provider Victorino Read MD Primary Care Provider UnavailSharon Kimbrough Primary Care Provider Unava ilBrennan Newman MD Primary Care Provider Unavailab Hayden Montes MD Unavailable [phone] Pallavi Flood NP Unavailable [phone] Caitlyn Bowie MD Primary Care Provider Unava chhaya Encounter Details Date Type Department Care Team Description 05/19/2017 [facility] Medical Records [address] [place] [address] Abstract, Provider Social History Tobacco Use Types [...] on filedocumented in this encounter Care Teams Real Estate Office Manager Relationship Specialty Start Date End Date Cristofer Hope MD PCP - General Internal Medicine 05/16/17 12/20/17 Victorino Martin MD PCP - General Internal Medicine 12/21/17 08/01/18 Sharon Vides PCP - General Internal Medicine 08/02/18 05/26/20 Brennan Burnett MD PCP - General Internal Medicine 05/27/20 12/07/21 Caitlyn Bowie MD [address] [place] [address] PCP - General Internal Medicine 12/08/21 Hayden Shah MD [address] [place], [place] [id number] Specialist Cardiovascular Disease 09/01/20 Pallavi Flood NP [address] [place], [place] [id number] Cardiology 09/01/20 documented as of this encounter
--- OUTSIDE RECORDS SUMMARY | 2024-08-30 13:08 | XMS_ITS | Encounter Summary ---
Author Organization [facility] Address [address] [place] [address] Care Team Providers Care Medical Claims Assistant Name Role Phone Victorino Martin MD Primary Care Provider UnavailSharon Kimbrough Primary Care Provider Unava ilable Brennan Burnett MD Primary Care Provider Unavailab Hayden Montes MD Unavailable [phone] Pallavi Flood NP Unavailable [phone] Caitlyn Bowie MD Primary Care Provider Unava shenaable Reason for Visit * Reason Onset Date Comments hospital follow up 07/30/2018 Encounter Details Date Type Department Care Team Description 07/30/2018 Telephone Pulmonology - [address] [place] [address] Henry Kelly MD hospital follow [...] 1:10 PM EST Patient was admitted into [facility] with a d/c of Monday. The patient was admitted for Pnemonia and she has a blood clot in the left arm vein which is very painful. She would like to be seen today, is there any way you can fit her in today. Please call the patient at [phone]. documented in this encounter Plan of Treatment Not on file documented as of this encounter Visit Diagnoses Not on filedocumented in this encounter Care Teams Medical Claims Assistant Relationship Specialty Start Date End Date Victorino Martin MD PCP - General Internal Medicine 12/21/17 08/01/18 Sharon Vides PCP - General Internal Medicine 08/02/18 05/26/20 Brennan Burnett MD PCP - General Internal Medicine 05/27/20 12/07/21 Caitlyn Bowie MD [address] [place] [address] PCP - General Internal Medicine 12/08/21 Hayden Shah MD [address] [place] [address] [id number] Specialist Cardiovascular Disease 09/01/20 Pallavi Flood NP [address] [place] [address] Cardiology 09/01/20 documented as of this encounter
--- OUTSIDE RECORDS SUMMARY | 2024-08-30 13:08 | XMS_ITS | Clinical Summary ---
Author Organization [facility] Address [address] [place] [address] Care Team Providers Care Frankfurter Inspector Name Role Phone Caitlyn Bowie Primary Care Provider [phone] Allergies Active Allergy Reactions Criticality Noted Date [...] Throat tightness Throat tightness Throat tightness Ipratropium [place] Unknown Medium 12/18/2021 Isosorbide Mononitrate 11/23/2020 Other [...] topic Insurance MEDICARE PART A & B [facility] Care Teams Frankfurter Inspector Relationship Specialty Start Date End Date Caitlyn Bowie [address] [place] [address] PCP - General Internal Medicine 07/18/22
--- OUTSIDE RECORDS SUMMARY | 2024-08-30 13:08 | XMS_ITS | Encounter Summary ---
Author Organization [facility] Address [address] [place] [address] Care Team Providers Care Cosmetics Machine Operator Name Role Phone Sharon Vides Primary Care Provider Brennan Castro MD Primary Care Provider Unavailab Hayden Montes MD Unavailable [phone] Pallavi Flood NP Unavailable [phone] Caitlyn Bowie MD Primary Care Provider Johnathon shaver Encounter Details Date Type Department Care Team Description 11/06/2018 Gis Professor Report Medical Records [address] [place] [address] Abstract, Provider Social History Tobacco Use Types [...] on filedocumented in this encounter Care Teams Cosmetics Machine Operator Relationship Specialty Start Date End Date Sharon Vides PCP - General Internal Medicine 08/02/18 05/26/20 Brennan Burnett MD PCP - General Internal Medicine 05/27/20 12/07/21 Caitlyn Bowie MD [address] [place] [address] PCP - General Internal Medicine 12/08/21 Hayden Shah MD [address] [place] [address] Specialist Cardiovascular Disease 09/01/20 Pallavi Flood NP [address] [place] [address] Cardiology 09/01/20 documented as of this encounter
--- OUTSIDE RECORDS SUMMARY | 2024-08-30 13:08 | XMS_ITS | Encounter Summary ---
Author Organization [facility] Address [address] [place] [address] Care Team Providers Care Waybill Clerk Name Role Phone Victorino Martin MD Primary Care Provider UnavailSharon Kimbrough Primary Care Provider Unava ilable Brennan Burnett MD Primary Care Provider Unavailab Hayden Montes MD Unavailable [phone] Pallavi Flood NP Unavailable [phone] Caitlyn Bowie MD Primary Care Provider Unava ilable Reason for Visit * Reason Onset Date Comments refill request 06/25/2018 Call From Pharmacy 06/25/2018 Encounter Details Date Type Department Care Team Description 06/25/2018 Refill Pulmonology - [address] [place] [address] Henry Kelly MD refill request; Call From Pharmacy Social History Tobacco Use Types Packs/Day Years [...] * Telephone Encounter - Ace Patel - 06/25/2018 8:42 AM EST Patient would like script to be: E-PRESCRIBED/FAXED TO PHARMACY When was the patients last office visit in Adult Medicine?: unsure When was the last time the patient saw their PCP? unsure Does patient have an upcoming appointment? Yes [id number] (THE MEDICATION IS NOT ON THE MED LIST AND IS IDENTIFIED BELOW): {MED LIST:37717) Med name: Ventolin HFA Dosage: 90 mcg # of tablets: Local pharmacy with request for 90 -day supply Instructions: 2 puffs every 6 hours as needed for wheezing Did you check the pharmacy information above?: YES Patients current [place] carrier: [place] / [place] / Product Type: MEDICAREFEE-FOR-SERVICE documented in this encounter Plan of Treatment Not on file documented as of this encounter Visit Diagnoses Diagnosis Mixed simple and mucopurulent chronic bronchitis (HCC) Other chronic bronchitis documented in this encounter Care Teams Waybill Clerk Relationship Specialty Start Date End Date Victorino Martin MD PCP - General Internal Medicine 12/21/17 08/01/18 Sharon Vides PCP - General Internal Medicine 08/02/18 05/26/20 Brennan Burnett MD PCP - General Internal Medicine 05/27/20 12/07/21 Caitlyn Bowie MD [address] [place] [address] PCP - General Internal Medicine 12/08/21 Hayden Shah MD [address] [place] [address] Specialist Cardiovascular Disease 09/01/20 Pallavi Flood NP [address] [place] [address] Cardiology 09/01/20 documented as of this encounter
--- OUTSIDE RECORDS SUMMARY | 2024-08-30 13:08 | XMS_ITS | Encounter Summary ---
Author Organization [facility] Address [address] [place] [address] Care Team Providers Care Robotics Specialist Name Role Phone Sharon Vides Primary Care Provider Brennan Castro MD Primary Care Provider Unavailab Hayden Montes MD Unavailable [phone] Pallavi Flood NP Unavailable [phone] Caitlyn Bowie MD Primary Care Provider Johnathon shaver Encounter Details Date Type Department Care Team Description 11/26/2018 Pt. Non Urgent Medic al Question Pulmonology - [place] [address] [facility] [address] [place] [address] Henry Kelly MD Social History [...] on filedocumented in this encounter Care Teams Robotics Specialist Relationship Specialty Start Date End Date Sharon Vides PCP - General Internal Medicine 08/02/18 05/26/20 Brennan Burnett MD PCP - General Internal Medicine 05/27/20 12/07/21 Caitlyn Bowie MD [address] [place] [address] PCP - General Internal Medicine 12/08/21 Hayden Shah MD [address] [place] [address] Specialist Cardiovascular Disease 09/01/20 Pallavi Flood NP [address] [place] [address] Cardiology 09/01/20 documented as of this encounter
--- OUTSIDE RECORDS SUMMARY | 2024-08-30 13:08 | XMS_ITS | Encounter Summary ---
Author Organization [facility] Address [address] [place] [address] Care Team Providers Care Onboarding Specialist Name Role Phone Brennan Burnett MD Primary Care Provider [phone] Reason for Visit * Reason Onset Date Comments returning pt call 08/19/2024 Encounter Details Date Type Department Care Team (Late st Contact Info) Description 08/19/2024 Telephone [facility] Speech Therapy [address] [address] Daphne Alarcon, DIRECTOR LOSS PREVENTION returning pt call Social History Tobacco Use Types Packs/Day Years [...] of Assessment Author No 06/15/2024 2:25 PM EST Sheila Leahy RN * Are you blind or do [...] Sheila Luis RN documented in this encounter Progress Notes * EILEEN Gould - 08/19/2024 8:33 AM EST Returned patient call about receiving a copy of her DIRECTOR LOSS PREVENTION evaluation. She has called medical records and was not able to reach an employee. She does not use [employer] and is requesting a copy of her records. Left her VM with information to complete medical release form (can be emailed or mailed) and then how to submit completed form. documented in this encounter Plan of Treatment Upcoming Encounters Date Type Department Care Team (Late st Contact Info) Description 09/09/2024 3:30 PM EST Treatment [facility] Speech [facility] [address] [place] [address] Daphne Alarcon, DIRECTOR LOSS PREVENTION documented as of this encounter Goals Goal Patient Goal Type Associated Problems Recent Progress Patient-Stated? Author ST [facility] General No Daphne Alarcon, DIRECTOR LOSS PREVENTION Note: Pt will improve cognitive linguistic function to participate and communicate in iADLs mod I ST STGs General No Daphne Alarcon, DIRECTOR LOSS PREVENTION Note: Pt will participate with development of [...] on filedocumented in this encounter Care Teams Onboarding Specialist Relationship Specialty Start Date End Date Brennan Burnett MD [address] [place] [address] PCP - General 05/06/24 documented as of this encounter
--- OUTSIDE RECORDS SUMMARY | 2024-08-30 13:08 | XMS_ITS | Encounter Summary ---
Author Organization [facility] Address [address] [place] [address] Care Team Providers Care Long Haul Truck Driver Name Role Phone Brennan Burnett MD Primary Care Provider [phone] Reason for Visit * Reason Comments Encopresis Encounter Details Date Type Department Care Team (Latest Contact Info) Description 08/23/2024 1:20 PM EST Office Visit Gastroenterology - [address] [place] [phone] Saima Amor, ALON [address] [address] Gastroesophageal reflux disease, unspecified whether esophagitis present (Primary Dx); Constipation, unspecified constipation type Social History Tobacco Use Types Packs/Day Years [...] PM EST documented as of this encounter Last Filed Vital Signs Vital Sign Reading Time Taken Comments Blood Pressure - - Pulse - - Temperature - - Respiratory Rate - - Oxygen Saturation - - Inhaled Oxygen Concentration - - Weight 58.5 kg (129 lb) 08/23/2024 1:24 PM EST Height 160 cm (5' 3 ) 08/23/2024 1:24 PM EST Body Mass Index 22.85 08/23/2024 1:24 PM EST documented in this encounter Functional Status * Are you deaf or do you have serious difficulty hearing? Answer Date of Assessment Author No 06/15/2024 2:25 PM EST Sheila Laehy RN * Are you blind or do [...] Sheila Luis RN documented in this encounter Ordered Prescriptions Prescription Sig Dispense Quantity Refills Last Filled Start Date End Date famotidine (PEPCID) 40 mg tabletIndications: Gastroesophageal reflux disease, unspecified whether esophagitis present Take 1 tablet (40 mg total) by mouth 2 (two) times a day. 60 each 11 08/23/2024 08/23/2025 documented in this encounter Progress Notes * Saima Amor NP - 08/23/2024 1:20 PM ESTAssociated Problem(s): Gastroesophageal reflux disease Orders: famotidine (PEPCID) 40 mg tablet; Take 1 tablet (40 mg total) by mouth 2 (two) times a day. * Saima Amor NP - 08/23/2024 1:20 PM EST CHIEF COMPLAINT: Encopresis DATE OF LAST ENDOSCOPIC PROCEDURES: HPI: Jovana Malik is a 79 y.o. old female who was originally referred to us by Brennan Burnett MD now presents to the gastroenterology department today for a follow up constipation. Having BM 1-2 X week. No bleeding Very gassy. Saw teenage babysitter at [facility] and dx with small cysts around anus. Notreatment. Also flare of heartburn. She is taking stool softeners 2 BID. Intolerant of Miralax due to leakage. Allergic to Mertamucil. Haslots of gas both ends. Reflux is flaring No NSAIDs due to coumadin. Discussed trying pepcid. Weight stable. Uses BiPAP and is on O2 continuous. Explained will probably always be gassy because of this. Long discussion about diet and options for constipation. ROS: GENERAL: No malaise, significant weight loss or fever HEENT: No changes in hearing or vision or swallowing problems RESPIRATORY: No cough, wheezing or shortness of breath CARDIOVASCULAR: No chest pain, leg swelling or palpitations GI: See H&P The remainder of the review of systems is reviewed and negative. PAST MEDICAL HISTORY: Past Medical History: Diagnosis Date Adrenal insufficiency (CMS/HCC) 08/23/2018 DX:Adrenal insufficiency (HCC) Adrenal insufficiency (CMS/HCC) DX:Adrenal insufficiency (HCC) Akathisia 04/15/2013 DX:Akathisia Allergic rhinitis 08/23/2018 DX:Allergic rhinitis Antiphospholipid antibody syndrome (CMS/HCC) 12/24/2018 DX:Antiphospholipid antibody syndrome (HCC) Anxiety 12/07/2016 DX:Anxiety Bronchiectasis (CMS/HCC) 08/08/2017 DX:Bronchiectasis (HCC) Cataract 08/26/2014 DX:Cataract Chronic obstructive pulmonary disease (CMS/HCC) 04/13/2017 DX:Chronic obstructive pulmonary disease (HCC) 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 DX:Complicated migraine Congestive heart failure (CMS/HCC) 04/04/2017 DX:Congestive heart failure (HCC) Diverticulitis of sigmoid colon 12/15/2016 DX:Diverticulitis of sigmoid colon Elevated liver enzymes 09/23/2015 DX:Elevated liver enzymes Fibromyalgia 04/13/2017 DX:Fibromyalgia Gastroesophageal reflux disease 11/17/2016 DX:Gastroesophageal reflux disease Glaucoma suspect 08/26/2014 DX:Glaucoma suspect Heterozygous factor V Leiden mutation (CMS/HCC) 04/04/2017 DX:Heterozygous factor V Leiden mutation (HCC) History of deep vein thrombosis 04/04/2017 DX:History of deep vein thrombosis History of lung cancer 04/04/2017 DX:History of lung cancer; COMMENT: T2 N2 Mx LLL resection, Chemo, RT, Cisplatin, Vinorelbine [id number] 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 History of pulmonary embolism 05/15/2017 DX:History of pulmonary embolism History of rheumatic fever 12/12/2015 DX:History of rheumatic fever; COMMENT: With [facility] History of seizures 08/23/2018 DX:History of seizures; COMMENT: Temporal lobe seizures Hyperlipidemia 12/07/2016 DX:Hyperlipidemia Hyperparathyroidism (CMS/HCC) 08/23/2018 DX:Hyperparathyroidism (HCC) Hyperparathyroidism (CMS/HCC) DX:Hyperparathyroidism (HCC) Hypothyroidism 12/07/2016 DX:Hypothyroidism Insomnia 10/18/2016 DX:Insomnia Leg edema 08/08/2017 DX:Leg edema MRSA infection 08/23/2018 DX:MRSA infection; COMMENT: 06/2009, s/p thoracotomy infection Multiple pulmonary nodules 03/17/2017 DX:Multiple pulmonary nodules Obstructive sleep apnea syndrome 04/04/2017 DX:Obstructive sleep apnea syndrome; COMMENT: CPAP Optic neuropathy 08/26/2014 DX:Optic neuropathy Osteoarthritis 08/23/2018 DX:Osteoarthritis Osteoporosis 11/17/2016 DX:Osteoporosis Peripheral neuropathic pain 12/07/2016 DX:Peripheral neuropathic pain Pleural effusion 04/04/2017 DX:Pleural effusion Postconcussion syndrome 02/18/2013 DX:Postconcussion syndrome Pulmonary hypertension (CMS/HCC) 04/04/2017 DX:Pulmonary hypertension (HCC) Radiation-induced pulmonary fibrosis (CMS/HCC) 11/13/2017 DX:Radiation-induced pulmonary fibrosis (HCC) Restrictive lung disease 08/08/2017 DX:Restrictive lung disease 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 DX:Zinc deficiency PAST SURGICAL HISTORY: Past Surgical History: Procedure Laterality Date ADENOIDECTOMY PROCEDURE: HISTORICAL ADENOIDECTOMY; COMMENT: as a child, complicated by excessive bleeding COLONOSCOPY 05/03/2015 PROCEDURE: HISTORICAL COLONOSCOPY; COMMENT: no pathology report HYSTERECTOMY PROCEDURE: HISTORICAL TOTAL HYSTERECTOMY WITH BSO OTHER SURGICAL HISTORY PROCEDURE: MO RMVL LUNG XCP TOT PNEUMONECTOMY SLEEVE LOBECTOMY; COMMENT: LLL OTHER SURGICAL HISTORY 01/27/2017 PROCEDURE: PULMONOLOGY BRONCHOSCOPY; COMMENT: Mult non adherant clots in trachea, R&L bronchus suctioned, 1+polymor leuk/1+ grm+ cocci TONSILLECTOMY PROCEDURE: HISTORICAL TONSILLECTOMY TONSILLECTOMY PROCEDURE: HISTORICAL TONSILLECTOMY; COMMENT: as a child,complicated by excessive bleeding UPPER GASTROINTESTINAL ENDOSCOPY 05/03/2015 PROCEDURE: MO UPPER GI ENDOSCOPY PERFORMED WISDOM TOOTH EXTRACTION PROCEDURE: HISTORICAL WISDOM TEETH EXTRACTION SOCIAL HISTORY: Social History Tobacco Use Smoking status: Never Smokeless tobacco: Never Substance Use Topics Alcohol use: No FAMILY HISTORY: Family History Problem Relation Name Age of Onset Lung cancer Mother CAD,CKD,AAA,Cerebral Aneurysm, Thyroid disorder, age 78 Lung cancer Maternal Grandmother Cirrhosis Father age 65 Myeloproliferative Disorder Sister AML, age 66 Other (Other: bleeding disorder) Paternal Grandmother from excessive bleeding in childbirth Lung cancer Maternal Grandfather Leukemia Uncle ACTIVE MEDICATIONS: Current Outpatient Medications ALLERGIES: Allergies Allergen Reactions Avanafil Anaphylaxis Avocado Other reaction(s): Resp Distress Barium Iodide Other Reaction(s): Rash/Dermatitis Other reaction(s): Throat Closes Clarithromycin Wheezing Other Reaction(s): Rash/Dermatitis Diatrizoate Meglumine Swelling Throat tightness Diclofenac Anaphylaxis and Wheezing Other Reaction(s): Rash/Dermatitis Erythromycin Anaphylaxis and Wheezing Other Reaction(s): Rash/Dermatitis Gentamicin Anaphylaxis and Wheezing Other Reaction(s): Rash/Dermatitis Iodinated Contrast Media Swelling and Wheezing Other Reaction(s): Rash/Dermatitis Metronidazole Other reaction(s): Resp Distress Visual changes, back pain, weakness Mold Other reaction(s): Resp Distress Moxifloxacin Swelling, Wheezing and Anaphylaxis Other Reaction(s): Rash/Dermatitis Other reaction(s): Rash Penicillins Anaphylaxis and Wheezing Other Reaction(s): Rash/Dermatitis Sulfa (Sulfonamide Antibiotics) Anaphylaxis and Wheezing Other Reaction(s): Rash/Dermatitis Vancomycin Anaphylaxis and Wheezing Other Reaction(s): Rash/Dermatitis Amlodipine Other flushing Levofloxacin Nausea And Vomiting painful tight joints Morphine Nausea And Vomiting Other Reaction(s): OTHER Flushed, almost passed out Shrimp Cough, Itching and Unknown Azithromycin Bee Pollen Other reaction(s): Resp Distress Allergic to bee stings Ciprofloxacin Patient reported that she couldn't walk Diatrizoate Shiloh-Diatrizoat Sod Diclofenac Sodium Isosorbide Mononitrate Headache Other Other muscles relaxers Some muscle relaxers Procaine Sulfur Hives, Itching and Rash PHYSICAL EXAM: Visit Vitals Ht 1.6 m (63 ) Wt 58.5 kg (129 lb) BMI 22.85 kg/m?? Smoking Status Never BSA 1.6 m?? APPEARANCE: Alert and in no acute distress O2 nc EYES: PERRLA, conjunctiva and sclera normal. NEURO: Awake, alert and oriented x 3 Assessment & Plan Gastroesophageal reflux disease, unspecified whether esophagitis present Orders: famotidine (PEPCID) 40 mg tablet; Take 1 tablet (40 mg total) by mouth 2 (two) times a day. Constipation, unspecified constipation type Stop stool softerners not working Suggestions to try given including: purnes, Milk of Magnesio, Senna, Pericolace She to call if not helping' Follow up by phone I would like to thank Brennan Burnett MD for the opportunity to partake in the patient's care. Board Certified Gastroenterology [facility] [phone] [address] [facility] [address] [place] [address] [email or web address] Saima Amor NP documented in this encounter Plan of Treatment Upcoming Encounters Date Type Department Care Team (Late st Contact Info) Description 09/09/2024 3:30 PM EST Treatment [facility] Speech Therapy [address] [facility] [address] [place] [id number] Daphne Alarcon, APPRENTICE COOK documented as of this encounter Goals Goal Patient Goal Type Associated Problems Recent Progress Patient-Stated? Author ST [facility] General No Daphne Alarcon, APPRENTICE COOK Note: Pt will improve cognitive linguistic function to participate and communicate in iADLs mod I ST STGs General No Daphne Alarcon, APPRENTICE COOK Note: Pt will participate with development of [...] as of this encounter Visit Diagnoses Diagnosis Gastroesophageal reflux disease, unspecified whether esophagitis present- Primary Constipation, unspecified constipation type documented in this encounter Care Teams Long Haul Truck Driver Relationship Specialty Start Date End Date Brennan Burnett MD [address] [place] [address] PCP - General 05/06/24 documented as of this encounter
--- OUTSIDE RECORDS SUMMARY | 2024-08-30 13:08 | XMS_ITS ---
Author Organization [facility] Address [address] [facility] [address] [place] [address] Care Team Providers Care Wool Presser Name Role Phone EVELIN RAMSAY Primary Care Provider Yenny Hou Unavailable [phone] Allergies Allergen (clinical drug ingredient) Drug/Non Drug [...] bedtime, 1/2 tab prn during the day [facility] 06/10/2014 Active traZODone HCl 50MG 1 ORAL at bedtime fo r -3 [facility] 06/10/2014 Active Meclizine HCl 25 MG 1 tablet as needed Orally [facility] 06/10/2014 Active Advair HFA 230-21MCG/ACT 2 Inhalation [...] Synthroid 25MCG 1 ORAL daily for -3 [facility] 06/10/2014 Active Singulair 10 MG 1 tablet [...] 07/18/2024 Encounters Encounter Location Date Provider Diagnosis [address] [place] [address] 07/18/2024 Yenny Elizalde Encounter for screening mammogram [...] Notes * TONIE WATSONOB:1945 (79 yo F)Acc No.[id number]:07/18/2024 PROGRESS NOTES Patient:?CINDA WATSON Appointment Provider:?Yenny doan M.D. :1945???Age:79 Y???Sex:Female D ate:07/18/2024 Address:[address] [place] [address] Pcp:EVELIN RAMSAY Subjective: * Chief Complaints: * ???LT BREAST PAIN * HPI: ???New/Follow-up Patient Consult:? PAT C/O LEFT BREAST DISCOMFORT OF A FEW DAYS DURATION.? NO NIPPLE DISCHARGE, NO PALPABLE MASSES.? HER LAST MAMMOGRAM DONE IN AUG 2023 WAS NORMAL. * ROS:?general:?no?chest pain.?no?palpitations.?no?headache.?no?cough.?no?shortness of breath.?no?fever.?no?unexplained weight loss.?no?nausea/vomiting.?no?change in bowel movements.?no blood in stool.?no?genitourinary complaints.?no?skin complaints.? * Medical History:? * Staff Technologist History:?/ Para?2/2.?Sexual activity?not currently sexually active.?Last Pap [...] Provider:?Yenny Elizalde M.D. Date:?07/18/2024 Generated for Arely paige/Sebastian/Zacheryitting on:?08/30/2024 01:08 PM EST History and Physical Notes * HPI (History of Present Illness) Category Sub-Category Detail Notes Category Not es New/Follow-up Patient Consult PAT C/O LEFT BREAST DISCOMFORT OF A FEW DAYS DURATION. NO NIPPLE DISCHARGE, NO PALPABLE MASSES. HER LAST MAMMOGRAM DONE IN AUG 2023 WAS NORMAL. Examination Category Sub-Category Detail Notes Category Not es General Examination GENERAL APPEARANCE: in no ac archie distress, well developed, well nourished BREASTS: normal, no dimpling, no discharge, no drainage, no masses palpable bilaterally, nontender
--- OUTSIDE RECORDS SUMMARY | 2024-08-30 13:08 | XMS_ITS | Encounter Summary ---
Author Organization [facility] Address [address] [place] [address] Care Team Providers Care Camera Repair Technician Name Role Phone Brennan Burnett MD Primary Care Provider Unavailab Hayden Montes MD Unavailable [phone] Pallavi Flood NP Unavailable [phone] Caitlyn Bowie MD Primary Care Provider Unava ilable Encounter Details Date Type Department Care Team Description 06/02/2020 Anthropology Faculty Member Report Medical Records [address] [place] [address] Abstract, Provider Social History Tobacco Use Types [...] on filedocumented in this encounter Care Teams Camera Repair Technician Relationship Specialty Start Date End Date Brennan Burnett MD PCP - General Internal Medicine 05/27/20 12/07/21 Caitlyn Bowie MD [address] [place] [address] PCP - General Internal Medicine 12/08/21 Hayden Shah MD [address] [place] [address] Specialist Cardiovascular Disease 09/01/20 Pallavi Flood NP [address] [place] [phone] Cardiology 09/01/20 documented as of this encounter
--- OUTSIDE RECORDS SUMMARY | 2024-08-30 13:08 | XMS_ITS | Encounter Summary ---
Author Organization [facility] Address [address] [place] [address] Care Team Providers Care Audit Control Clerk Name Role Phone Victorino Martin MD Primary Care Provider UnavailSharon Kimbrough Primary Care Provider Unava ilable Brennan Burnett MD Primary Care Provider Unavailab Hayden Montes MD Unavailable [phone] Pallavi Flood NP Unavailable [phone] Caitlyn Bowie MD Primary Care Provider Unava ilable Reason for Visit * Reason Onset Date Comments Call From Md Office 06/27/2018 Encounter Details Date Type Department Care Team Description 06/27/2018 Telephone Pulmonology - [address] [place] [address] Henry Kelly MD Call From [...] Szymanski calling to speak to Dr. Kelly [phone] documented in this encounter Plan of Treatment Not on file documented as of this encounter Visit Diagnoses Not on filedocumented in this encounter Care Teams Audit Control Clerk Relationship Specialty Start Date End Date Victorino Martin MD PCP - General Internal Medicine 12/21/17 08/01/18 Sharon Vides PCP - General Internal Medicine 08/02/18 05/26/20 Brennan Burnett MD PCP - General Internal Medicine 05/27/20 12/07/21 Caitlyn Bowie MD [address] [place] [address] PCP - General Internal Medicine 12/08/21 Hayden Shah MD [address] [place], [place] [phone] Specialist Cardiovascular Disease 09/01/20 Pallavi Flood NP [address] [place], [place] [phone] Cardiology 09/01/20 documented as of this encounter
--- OUTSIDE RECORDS SUMMARY | 2024-08-30 13:08 | XMS_ITS | Encounter Summary ---
Author Organization [facility] Address [address] [place] [address] Care Team Providers Care Actuarial Intern Name Role Phone Sharon Vides Primary Care Provider Unava ilable Brennan Burnett MD Primary Care Provider Unavailab Hayden Montes MD Unavailable [phone] Pallavi Flood NP Unavailable [phone] Caitlyn Bowie MD Primary Care Provider Unava ilable Reason for Visit * Reason Onset Date Comments other 12/13/2019 Encounter Details Date Type Department Care Team Description 12/13/2019 Telephone General Surgery [address] [address] Norma Mendoza MD [address] [place] [phone] other Social History Tobacco Use Types Packs/Day [...] and put pt in with [facility]-- opening [id number]-- pt said very painful- possibly infected and [...] on filedocumented in this encounter Care Teams Actuarial Intern Relationship Specialty Start Date End Date Sharon Vides PCP - General Internal Medicine 08/02/18 05/26/20 Brennan Burnett MD PCP - General Internal Medicine 05/27/20 12/07/21 Caitlyn Bowie MD [address] [place] [address] PCP - General Internal Medicine 12/08/21 Hayden Shah MD [address] [place] [address] Specialist Cardiovascular Disease 09/01/20 Pallavi Flood NP [address] [place] [address] Cardiology 09/01/20 documented as of this encounter
--- OUTSIDE RECORDS SUMMARY | 2024-08-30 13:08 | XMS_ITS | Encounter Summary ---
Author Organization [facility] Address [address] [place] [address] Care Team Providers Care Powder Hand Name Role Phone Brennan Burnett MD Primary Care Provider Unavailab Hayden Montes MD Unavailable [phone] Pallavi Flood NP Unavailable [phone] Caitlyn Bowie MD Primary Care Provider Unava ilable Encounter Details Date Type Department Care Team Description 09/25/2020 Dental Practice Manager Report Medical Records [address] [place] [address] Henry Kelly MD Social History Tobacco Use [...] on filedocumented in this encounter Care Teams Powder Hand Relationship Specialty Start Date End Date Brennan Burnett MD PCP - General Internal Medicine 05/27/20 12/07/21 Caitlyn Bowie MD [address] [place] [address] PCP - General Internal Medicine 12/08/21 Hayden Shah MD [address] [place] [address] Specialist Cardiovascular Disease 09/01/20 Pallavi Flood NP [address] [place] [address] Cardiology 09/01/20 documented as of this encounter
--- OUTSIDE RECORDS SUMMARY | 2024-08-30 13:08 | XMS_ITS | Encounter Summary ---
Author Organization [facility] Address [address] [place] [address] Care Team Providers Care Silversmith Apprentice Name Role Phone Victorino Martin MD Primary Care Provider UnavailSharon Kimbrough Primary Care Provider Unava ilable Brennan Burnett MD Primary Care Provider Unavailab Hayden Montes MD Unavailable [phone] Pallavi Flood NP Unavailable [phone] Caitlyn Bowie MD Primary Care Provider Unava ilable Reason for Visit * Reason Onset Date Comments Orders Call 07/30/2018 ultrasound Encounter Details Date Type Department Care Team Description 07/30/2018 Telephone Pulmonology - [address] [place] [address] Henry Kelly MD Orders Call [...] have no order. Please fax order to [phone]. documented in this encounter Plan of Treatment Not on file documented as of this encounter Visit Diagnoses Not on filedocumented in this encounter Care Teams Silversmith Apprentice Relationship Specialty Start Date End Date Victorino Martin MD PCP - General Internal Medicine 12/21/17 08/01/18 Sharon Vides PCP - General Internal Medicine 08/02/18 05/26/20 Brennan Burnett MD PCP - General Internal Medicine 05/27/20 12/07/21 Caitlyn Bowie MD [address] [place] [address] PCP - General Internal Medicine 12/08/21 Hayden Shah MD [address] [place] [address] Specialist Cardiovascular Disease 09/01/20 Pallavi Flood NP [address] [place] [address] Cardiology 09/01/20 documented as of this encounter
--- OUTSIDE RECORDS SUMMARY | 2024-08-30 13:08 | XMS_ITS | Encounter Summary ---
Author Organization [facility] Address [address] [place] [address] Care Team Providers Care Bean Sprout Grower Name Role Phone Victorino Martin MD Primary Care Provider Sharon Odonnell Primary Care Provider Brennan Castro MD Primary Care Provider UnavailHayden Fernandez MD Unavailable [phone] Pallavi Flood NP Unavailable [phone] Caitlyn Bowie MD Primary Care Provider Johnathon shaver Encounter Details Date Type Department Care Team Description 06/27/2018 Rehab Aid Report Medical Records [address] [place] [address] Mick Newsome MD Social History Tobacco Use Types Packs/Day [...] on filedocumented in this encounter Care Teams Bean Sprout Grower Relationship Specialty Start Date End Date Victorino Martin MD PCP - General Internal Medicine 12/21/17 08/01/18 Sharon Vides PCP - General Internal Medicine 08/02/18 05/26/20 Brennan Burnett MD PCP - General Internal Medicine 05/27/20 12/07/21 Caitlyn Bowie MD [address] [place] [address] PCP - General Internal Medicine 12/08/21 Hayden Shah MD [address] [place] [phone] Specialist Cardiovascular Disease 09/01/20 Pallavi Flood NP [address] [place] [phone] Cardiology 09/01/20 documented as of this encounter
--- OUTSIDE RECORDS SUMMARY | 2024-08-30 13:08 | XMS_ITS | Encounter Summary ---
Author Organization [facility] Address [address] [place] [address] Care Team Providers Care Hadoop Java Developer Name Role Phone Victorino Martin MD Primary Care Provider Sharon Odonnell Primary Care Provider Brennan Castro MD Primary Care Provider Unavailab Hayden Montes MD Unavailable [phone] Pallavi Flood NP Unavailable [phone] Caitlyn Bowie MD Primary Care Provider Johnathon shaver Encounter Details Date Type Department Care Team Description 07/12/2018 Refill Pulmonology [address] [place] [address] Henry Kelly MD Social History [...] on filedocumented in this encounter Care Teams Hadoop Java Developer Relationship Specialty Start Date End Date Victorino Martin MD PCP - General Internal Medicine 12/21/17 08/01/18 Sharon Vides PCP - General Internal Medicine 08/02/18 05/26/20 Brennan Burnett MD PCP - General Internal Medicine 05/27/20 12/07/21 Caitlyn Bowie MD [address] [place] [address] PCP - General Internal Medicine 12/08/21 Hayden Shah MD [address] [place], [place] [phone] Specialist Cardiovascular Disease 09/01/20 Pallavi Flood NP [address] [place] [address] Cardiology 09/01/20 documented as of this encounter
--- OUTSIDE RECORDS SUMMARY | 2024-08-30 13:08 | XMS_ITS | Encounter Summary ---
Author Organization [facility] Address [address] [place] [address] Care Team Providers Care Joggle Press Operator Name Role Phone Victorino Martin MD Primary Care Provider Sharon Odonnell Primary Care Provider Brennan Castro MD Primary Care Provider UnavailHayden Fernandez MD Unavailable [phone] Pallavi Flood NP Unavailable [phone] Caitlyn Bowie MD Primary Care Provider Johnathon shaver Encounter Details Date Type Department Care Team Description 07/23/2018 [facility] Internal Medicine [address], [address] [place] [address] Henry Kelly MD Social History Tobacco Use [...] on filedocumented in this encounter Care Teams Joggle Press Operator Relationship Specialty Start Date End Date Victorino Martin MD PCP - General Internal Medicine 12/21/17 08/01/18 Sharon Vides PCP - General Internal Medicine 08/02/18 05/26/20 Brennan Burnett MD PCP - General Internal Medicine 05/27/20 12/07/21 Caitlyn Bowie MD [address] [place] [address] PCP - General Internal Medicine 12/08/21 Hayden Shah MD [address] [place] [address] Specialist Cardiovascular Disease 09/01/20 Pallavi Flood NP [address] [place] [address] Cardiology 09/01/20 documented as of this encounter
--- OUTSIDE RECORDS SUMMARY | 2024-08-30 13:08 | XMS_ITS | Encounter Summary ---
Author Organization [facility] Address [address] [place] [address] Care Team Providers Care Loss Control Consultant Name Role Phone Victorino Martin MD Primary Care Provider Sharon Odonnell Primary Care Provider Brennan Castro MD Primary Care Provider Unavailab Hayden Montes MD Unavailable [phone] Pallavi Flood NP Unavailable [phone] Caitlyn Bowie MD Primary Care Provider Johnathon shaver Encounter Details Date Type Department Care Team Description 07/04/2018 Refill Pulmonology - [address] [place] [address] Henry Kelly MD Social History [...] M.A. - 07/04/2018 2:28 PM ESTFrom: Jovana Mailk To: Henry Kelly MD Sent: 07/04/2018 2:12 PM EST Subject: Medication Renewal Request Original authorizing provider: MD Jovana Martino would like a refill of the following medications: omeprazole (PRILOSEC) 40 MG capsule [Henry Kelly MD] Preferred pharmacy: [id number] Comment: documented in this encounter Plan of Treatment Not on file documented as of this encounter Visit Diagnoses Not on filedocumented in this encounter Care Teams Loss Control Consultant Relationship Specialty Start Date End Date Victorino Martin MD PCP - General Internal Medicine 12/21/17 08/01/18 Sharon Vides PCP - General Internal Medicine 08/02/18 05/26/20 Brennan Burnett MD PCP - General Internal Medicine 05/27/20 12/07/21 Caitlyn Bowie MD [address] [place] [address] PCP - General Internal Medicine 12/08/21 Hayden Shah MD [address] [place] [address] Specialist Cardiovascular Disease 09/01/20 Pallavi Flood NP [address] [place] [address] Cardiology 09/01/20 documented as of this encounter
--- OUTSIDE RECORDS SUMMARY | 2024-08-30 13:08 | XMS_ITS | Encounter Summary ---
Author Organization [facility] Address [address] [place] [address] Care Team Providers Care Air Quality Instrument Specialist Name Role Phone Cristofer Hope MD Primary Care Provider Victorino Read MD Primary Care Provider UnavailSharon Kimbrough Primary Care Provider Unava Brennan Zheng MD Primary Care Provider Unavailab Hayden Montes MD Unavailable [phone] Pallavi Flood NP Unavailable [phone] Caitlyn Bowie MD Primary Care Provider Unaailyn shaver Encounter Details Date Type Department Care Team Description 08/07/2017 [facility] Medical Records [address] [place] [address] Abstract, Provider Social History Tobacco Use Types [...] on filedocumented in this encounter Care Teams Air Quality Instrument Specialist Relationship Specialty Start Date End Date Cristofer Hope MD PCP - General Internal Medicine 05/16/17 12/20/17 Victorino Martin MD PCP - General Internal Medicine 12/21/17 08/01/18 Sharon Vides PCP - General Internal Medicine 08/02/18 05/26/20 Brennan Burnett MD PCP - General Internal Medicine 05/27/20 12/07/21 Caitlyn Bowie MD [address] [place] [address] PCP - General Internal Medicine 12/08/21 Hayden Shah MD [address] [place] [address] Specialist Cardiovascular Disease 09/01/20 Pallavi Flood NP [address] [place] [address] Cardiology 09/01/20 documented as of this encounter
--- OUTSIDE RECORDS SUMMARY | 2024-08-30 13:08 | XMS_ITS | Encounter Summary ---
Author Organization [facility] Address [address] [place] [address] Care Team Providers Care Forming Mill Operator Name Role Phone Sharon Vides Primary Care Provider Brennan Castro MD Primary Care Provider Unavailab Hayden Montes MD Unavailable [phone] Pallavi Flood NP Unavailable [phone] Caitlyn Bowie MD Primary Care Provider Johnathon shaver Encounter Details Date Type Department Care Team Description 11/28/2018 Orders Only Pulmonology - [address] [place] [address] Henry Kelly MD Social History [...] on filedocumented in this encounter Care Teams Forming Mill Operator Relationship Specialty Start Date End Date Sharon Vides PCP - General Internal Medicine 08/02/18 05/26/20 Brennan Burnett MD PCP - General Internal Medicine 05/27/20 12/07/21 Caitlyn Bowie MD [address] [place] [address] PCP - General Internal Medicine 12/08/21 Hayden Shah MD [address] [place], [place] [id number] Specialist Cardiovascular Disease 09/01/20 Pallavi Flood NP [address] [place] [address] Cardiology 09/01/20 documented as of this encounter
--- OUTSIDE RECORDS SUMMARY | 2024-08-30 13:08 | XMS_ITS | Encounter Summary ---
Author Organization [facility] Address [address] [place] [address] Care Team Providers Care Plant Quality Manager Name Role Phone Brennan Burnett MD Primary Care Provider [phone] Encounter Details Date Type Department Care Team (Late st Contact Info) Description 08/26/2024 10:30 AM EST Telemedicine [facility] [address] [place] [phone] Ayanna Jaffe MD [address] [place] [phone] Anxiety (Primary Dx); Memory change; Gait abnormality; White matter lesion of central nervous system Social History Tobacco Use Types Packs/Day Years [...] documented in this encounter Progress Notes * Ayanna Jaffe MD - 08/26/2024 10:30 AM EST Telehealth Video: Patient was advised about telehealth delivery of care and HIPAA privacy and risk of communicating remotely. Patients visit is being conducted with HIPAA compliant high-resolution audio and video equipment and understands the limitation of the treatment provided via telehealth. Patient was informed, in the event that the video connection is lost or fails during this visit, provider may call the patient back, have telehealth visit rescheduled, or patient may elect to have in-person visit scheduled. The patient consents to the use of this video visit in providing care and is comfortable that they are in a quiet and private location to speak freely about their health. The patient understands that today???s visit will be submitted to the patient???s insurance and may incur a co-pay or deductible which they are responsible for. Patients Location: [facility]: Jovana Malik is a 79 y.o. year old female referred to our center by Brennan Burnett MD for Evaluation and management of multiple neurological symptoms cognitive changes , Interval history Patient is here for follow up No new neurological symptom concerning for demyelination since last visit Patient has been getting her physical therapy working on her balance she admits it has been helpfulyet she still experiencing multiple problems with balance she denies any falls but she did have near falls Patient was evaluated by speech and was advised for speech sessions Since last visit she was evaluated by Dr. SCHUMACHER her evaluation was different and progress compared to the prior one years ago recommendations were discussed with the patient including decreasing benzodiazepines we discussed extensively how to wean down Valium alternative methods for sleep statesshe is taking it 3 times a week x 2.5 mg discussed different methods including natural melatonin she cognitive behavioral therapy apps patient has tried some of them but willing to give it another try We also discussed recommendation to be started on antidepressant patient has concerns due to a combination of Coumadin She is back taking vitamin D Her magnesium was stopped by one of her providers she will inquire more the reason as it can help her muscle twitching and also aid with sleep she restarted She saw her business process architect and will refer to sleep study she wants to go to [facility] 79 yo female with PMH Pulmonary HTN , She does have coronary disease but nothing high-grade and never had percutaneous coronary invention or heart surgery leg bypass. She has rheumatic mitral valve disease and had a mitral clip done at [facility] several months ag significant COPD , lung cancer on oxygen 2 yrs now . She is s/p radiation , chemotherapy including vitamin. Antiphospholipid , factor 5 leiden , she is on warfarin , she had hematoma last summer in Rt leg that needed intervention She saw Dr Mccord in past 20 years ago , she had paresthesias and electric shock concern l'hermittesign , Rt leg heaviness , she had MRI brain done which showed Multiple nonspecific periventricular white matter T2 FLAIR hyperintensities which likely are related to chronic small vessel , she never had LP , she had second opinion Dr Klaudia humphrey , she was told non specific changes was never treated More than 20 years she was diagnosed with optic neuropathy ? She had episode where she hit her eye in concrete , she follow with neurophthalmology She was complex partial seizure in 1957 , she was treated with tegretol she stopped it after 7 yrs She denies any episode concern for seizure She has occasional spasm , balance has been issue and she sway over the side She has some trouble with dates , focus and concretion , short memory problem , she was evaluated by Dr De Los Santos 5 years ago , no concerning finding Active Symptoms: Bowel/bladder:she is on diuretic so she has frequency Gait impairment: she is on oxygen which caused limitation in ambulation she has cardiac and pulmonary disease Fatigue: On day to day basis her symptoms she has excessive fatigued , she doesn't sleep during night Taking vitamin D supplementation: no Heat Sensitivity:no Past or present Lhermitte's: yes Past Medical History: Diagnosis Date Adrenal insufficiency [...] Mx LLL resection, Chemo, RT, Cisplatin, Vinorelbine [id number] 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 (Patient taking differently: 2 tablets (40 mg total) 2 (two) times a day.) rosuvastatin calcium (ROSUVASTATIN ORAL) Take by mouth. (Patient taking differently: 10 mg.) albuterol HFA (PROAIR HFA ; PROVENTIL HFA ; VENTOLIN HFA) 90 mcg/actuation inhaler Inhale 2 puffs by mouth Every 4 hours as needed. ASCORBIC ACID PO Take by mouth. cefpodoxime (VANTIN) 200 mg tablet TAKE ONE TABLET BY MOUTH EVERY 12 HOURS WITH FOOD (Patient not taking: Reported on 08/26/2024) cetirizine (ZyrTEC) 10 mg tablet Take 1 tablet (10 mg total) by mouth daily. diazePAM (VALIUM) 5 mg tablet Take 1 tablet (5 mg total) by mouth. docusate sodium (COLACE) 100 mg capsule Take 2 capsules (200 mg total) by mouth 2 times daily. doxycycline (ADOXA) 100 mg tablet Take 1 tablet (100 mg total) by mouth 2 (two) times a day. for 7 days ELDERBERRY FRUIT ORAL Elderberry 575 MG/5ML Syrup Take by mouth. - Oral epinephrine (EPIPEN 2-KORI INJ) Inject as directed. famotidine (PEPCID) 40 mg tablet Take 1 tablet (40 mg total) by mouth 2 (two) times a day. 60 each 11 fluticasone propion-salmeteroL (Advair HFA) 230-21 mcg/actuation inhaler INHALE 2 PUFFS TWO TIMES ADAY (Patient not taking: Reported on 08/26/2024) fluticasone propionate (FLONASE) 50 mcg/actuation nasal spray Administer 1 spray into affected nostril(s) daily. folic acid (FOLVITE) 1 mg tablet Take 1 tablet (1 mg total) by mouth daily. IRON, FERROUS SULFATE, ORAL Take by mouth. levothyroxine (SYNTHROID, LEVOTHROID) 25 mcg tablet Take 25 mcg by mouth daily. 1 tab daily 2 tabs Sat. And Sun lifitegrast 5 % dropperette apply to the eye 2 times daily. 1 g - Ophthalmic magnesium oxide 500 mg capsule Take by mouth. (Patient not taking: Reported on 08/26/2024) meclizine (ANTIVERT) 25 mg tablet Take 25 mg by mouth as needed. metoprolol succinate (TOPROL-XL) 50 mg 24 hr tablet Take 50 mg by mouth daily. montelukast (SINGULAIR) 10 mg tablet Take 1 Tab by mouth at bedtime. oxymetazoline HCl (NASAL SPRAY SINUS NASL) by Nasal route. potassium chloride (KLOR-CON) 20 mEq packet DISSOLVE AND TAKE TWO PACKETS BY MOUTH EVERY DAY saccharomyces boulardii (FLORASTOR) 250 mg capsule Take by mouth. (Patient not taking: Reported on 08/26/2024) spironolactone (ALDACTONE) 25 mg tablet Take 1 tablet (25 mg total) by mouth 1 (one) time each day.(Patient not taking: Reported on 08/26/2024) traZODone (DESYREL) 100 mg tablet Take 100 mg by mouth at bedtime. warfarin (COUMADIN) 1 mg tablet Take 1 mg by mouth See Admin Instructions. May cause heavy bleeding. Take at same time every day. Do not change dietary habits. No current facility-administered medications for this visit. Allergies Allergen Reactions Avanafil Anaphylaxis and Unknown Other reaction(s): Unknown Avocado Other reaction(s): Resp Distress Avocado (Laurus Persea) Anaphylaxis, Shortness of breath and Unknown Other reaction(s): Resp Distress Other reaction(s): Resp Distress Other reaction(s): Resp Distress Other reaction(s): Resp Distress Other reaction(s): Resp Distress Barium Iodide Unknown, Anaphylaxis, Other and Rash Other Reaction(s): Rash/Dermatitis Other reaction(s): Throat Closes Other reaction(s): Throat Closes Other reaction(s): Throat Closes Other reaction(s): Throat Closes Clarithromycin Wheezing Other [...] Wheezing Other Reaction(s): Rash/Dermatitis Amlodipine Other flushing Other reaction(s): Other (See Comments) flushing Other reaction(s): Other (See Comments) flushing flushing Levofloxacin Nausea And Vomiting painful tight joints Morphine Nausea And Vomiting Other Reaction(s): OTHER Flushed, almost passed out Shrimp Cough, Itching and Unknown Azithromycin Barium Sulfate Unknown Bee Pollen Other reaction(s): Resp Distress Allergic to bee stings Bee Venom Protein (Honey Bee) Ciprofloxacin Patient reported that she couldn't walk Diatrizoate Shiloh-Diatrizoat Sod Diclofenac Sodium Isosorbide Mononitrate Headache Other Other muscles relaxers Some muscle relaxers Procaine Sulfur Hives, Itching and Rash Social history: Tobacco: no Alcohol no Drug use: no 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 Neurologic Exam: Visit Vitals Smoking Status Never There were no vitals filed for this visit. MS: AOx3 CN: perrla, V1-3 intact to LT, face symmetric, bilateral SCM/trapezius 5/5, tongue/uvula/palate midline Motor: 5/5 in all extremities Sensation: Intact to light touch, temperature, and decreased vibration in bilateral lower extremityworse on the right Reflexes: 2+ in bilateral biceps and patellae, toes downgoing bilaterally Cerebellar: FNF intact bilaterally, FFM intact bilaterally, ANGELA intact bilaterally, unable to tandem romberg positive Labs: Vit b12 662 Vit d 23.6 Tsh 3 normal Imaging: All available images were reviewed by me. MRI BRAIN 2015 Multiple nonspecific periventricular white matter T2 FLAIR hyperintensities which likely are related to chronic small vessel ischemic changes but without intravenous contrast a metastatic focus cannot be completely excluded. No definite masslike lesions are visualized. Left orbit lesion best appreciated on the prior exam. MRI orbit : 09/2013 Abnormal T2 hyperintense signal in the left optic nerve with enhancement in the nerve sheath as well as a questionable focus of enhancement in the left optic nerve, nonspecific findings. Findings may reflect a neoplastic or infectious/inflammatory process. 2. 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 MRI brain: CT orbit 2022 :9 mm soft tissue lesion within the anterior left orbit in the superolateral extraconal space. Differential considerations include cavernous venous malformation and schwannoma. A/P: Jovana Malik is a 79 y.o. year old female referred to our center by Brennan Burnett MD for evaluation and management of multiple neurological symptoms with a question of an old MS diagnosis that was revoked by a second opinion, patient has multiple symptoms including cognitive and forgetfulness she was reevaluated by neuropsych with decline in her memory we discussed also recommendation ,she also experience gait imbalance on exam patient does experience neuropathy mostly related t to chemotherapy Last visit we discussed treating patient symptomatically managing her gait imbalance with physical therapy she started been helpful in the meantime optimize her quality of life Reviewed and discussed neuropsych evaluation and recommendation Discussed with patient obtaining an MRI brain to exclude any structural cause she has difficulty with her oxygen and pulmonary hypertension she cannot tolerate MRI -Will review prior MRI -Reviewed labs done outside hospital with a normal vitamin B12 TSH -MRI brain/C/T spine with and without contrast to assess current disease burden -Will refer patient to neuropsych for another assessment Symptomatic management Gait imbalance :continue physical therapy at rehab resolution Vitamin D deficiency:low vitamin D encourage she restarted supplementation Fatigue: Reviewed labs with normal TSH vitamin B12 we will review after vitamin History of seizures; will continue to monitor Cognitive/memory problem: Will follow-up on neuropsych recommendations we will try decreasing diazepam in the meantime follow-up with Mood changes/concern for depression: Encouraged to call back her psychiatrist. Medication recommendation -RTC in 3 months for follow up The patient and I discussed the clinical picture during today's appointment. Additional time was spent prior to the actual appointment reviewing records, lab values and imaging results and preparing documentation for today's visit. There was also time spent following the in person visit documenting, arranging for further diagnostic testing and follow-up appointments. The entire time spent in thisprocess was greater than 40 minutes. The majority of the actual [id number]-yp-cmlg visit was spent counseling the patient with respect to the current neurological picture. Ayanna Jaffe MD 33 documented in this encounter Plan of Treatment Upcoming Encounters Date Type Department Care Team (Late st Contact Info) Description 09/09/2024 3:30 PM EST Treatment [facility] Speech Therapy [address] [place] [phone] Daphne Alarcon, SALESPERSON STEREO EQUIPMENT documented as of this encounter Goals Goal Patient Goal Type Associated Problems Recent Progress Patient-Stated? Author ST [facility] General No Daphne Alarcon, SALESPERSON STEREO EQUIPMENT Note: Pt will improve cognitive linguistic function to participate and communicate in iADLs mod I ST STGs General No Daphne Alarcon, SALESPERSON STEREO EQUIPMENT Note: Pt will participate with development of [...] as of this encounter Visit Diagnoses Diagnosis Anxiety- Primary Anxiety state, unspecified Memory change Memory loss Gait abnormality Abnormality of gait White matter lesion of central nervous system documented in this encounter Discontinued Medications Medication Sig Discontinue Reason Start Date End Da te furosemide (LASIX) 20 mg tablet Take 20 mg by mouth daily. Therapy completed 08/26/2024 magnesium oxide 500 mg capsule Take by mouth. Therapy completed 08/26/2024 spironolactone (ALDACTONE) 25 mg tablet Take 1 tablet (25 mg total) by mouth 1 (one) time each day. Therapy completed 03/26/2024 08/26/2024 rosuvastatin calcium (ROSUVASTATIN ORAL) Take by mouth. Therapy completed 08/26/2024 cefpodoxime (VANTIN) 200 mg tablet TAKE ONE TABLET BY MOUTH EVERY 12 HOURS WITH FOOD Therapy completed 05/14/2024 08/26/2024 fluticasone propion-salmeteroL (Advair HFA) 230-21 mcg/actuation inhaler INHALE 2 PUFFS TWO TIMES A DAY Therapy completed 07/06/2020 08/26/2024 documented as of this encounter Care Teams Plant Quality Manager Relationship Specialty Start Date End Date Brennan Burnett MD [address] [place] [phone] PCP - General 05/06/24 documented as of this encounter
--- OUTSIDE RECORDS SUMMARY | 2024-08-30 13:08 | XMS_ITS | Encounter Summary ---
Author Organization [facility] Address [address] [place] [address] Care Team Providers Care Tray Setter Name Role Phone Sharon Vides Primary Care Provider Unava ilable Brennan Burnett MD Primary Care Provider Unavailab Hayden Montes MD Unavailable [phone] Pallavi Flood NP Unavailable [phone] Caitlyn Bowie MD Primary Care Provider Unava ilable Reason for Visit * Reason Onset Date Comments refill request 08/08/2018 Encounter Details Date Type Department Care Team Description 08/08/2018 Refill Pulmonology - [address] [place] [address] Henry Kelly MD refill request [...] encounter Miscellaneous Notes * Telephone Encounter - Paola Collier - 08/08/2018 9:57 AM EST Patient would like script to be: E-PRESCRIBED/FAXED TO PHARMACY WHEN WAS THE PATIENT'S LAST APPOINTMENT WITH THE PRESCRIBING PROVIDER? 06/22/2018 Does patient have an upcoming appointment? Yes 09/03/2018 (THE MEDICATION REQUESTED IS ON THE MED LIST ABOVE) Lidocaine Patches 5% Did you check the Pharmacy information above?: YES Patient wants: 30 -day supply Is this a mail order prescription request ? NO Patients current insurance carrier is: Payor: [employer]ICARE-[employer] / Plan: [place] / Product Type: MEDICARE [id number] documented in this encounter Plan of Treatment Not on file documented as of this encounter Visit Diagnoses Not on filedocumented in this encounter Care Teams Tray Setter Relationship Specialty Start Date End Date Sharon Vides PCP - General Internal Medicine 08/02/18 05/26/20 Brennan Burnett MD PCP - General Internal Medicine 05/27/20 12/07/21 Caitlyn Bowie MD [address] [place] [address] PCP - General Internal Medicine 12/08/21 Hayden Shah MD [address] [place] [address] Specialist Cardiovascular Disease 09/01/20 Pallavi Flood NP [address] [place] [address] Cardiology 09/01/20 documented as of this encounter
--- OUTSIDE RECORDS SUMMARY | 2024-08-30 13:08 | XMS_ITS ---
Author Organization [employer] [facility] Address [address] [address] Care Team Providers Care Classification Officer Name Role Phone EVELIN RAMSAY Primary Care Provider Yenny Hou Unavailable [phone] REASON FOR VISIT [facility] ifect disease dept Encounters Encounter Location Date Provider Diagnosis [facility] [employer] [address] [address] 06/11/2024 Yenny Elizalde Plan Of Treatment No Information Progress Notes * ONOFRE WATSON:1945 (79 yo F)Acc No.[id number]:06/11/2024 Patient:?CINDA WATSON :1945???Age:79 Y???Sex:Female Address:[address] [place] [address], [address] * true * Date:? Generated for Arely paige/Sebastian/eTransmitting on:?08/30/2024 01:08 PM EST
--- OUTSIDE RECORDS SUMMARY | 2024-08-30 13:08 | XMS_ITS | Encounter Summary ---
Author Organization [facility] Address [address] [place] [address] Care Team Providers Care Tyre Builder Name Role Phone Sharon Vides Primary Care Provider Brennan Castro MD Primary Care Provider Unavailab Hayden Montes MD Unavailable [phone] aPllavi Flood NP Unavailable [phone]- [phone] Caitlyn Bowie MD Primary Care Provider Johnathon shaver Encounter Details Date Type Department Care Team Description 08/28/2018 [place] Report Medical Records [address] [place] [address] Abstract, Provider Social History Tobacco Use Types [...] on filedocumented in this encounter Care Teams Tyre Builder Relationship Specialty Start Date End Date Sharon Vides PCP - General Internal Medicine 08/02/18 05/26/20 Brennan Bunrett MD PCP - General Internal Medicine 05/27/20 12/07/21 Caitlyn Bowie MD [address] [place] [address] PCP - General Internal Medicine 12/08/21 Hayden Shah MD [address] [place] [address] Specialist Cardiovascular Disease 09/01/20 Pallavi Flood NP [address] [place] [address] Cardiology 09/01/20 documented as of this encounter
--- OUTSIDE RECORDS SUMMARY | 2024-08-30 13:08 | XMS_ITS | Encounter Summary ---
Author Organization [facility] Address [address] [place] [address] Care Team Providers Care Cylinder Press Feeder Name Role Phone Sharon Vides Primary Care Provider Brennan Castro MD Primary Care Provider Unavailab Hayden Montes MD Unavailable [phone] Pallavi Flood NP Unavailable [phone] Caitlyn Bowie MD Primary Care Provider Johnathon shaver Encounter Details Date Type Department Care Team Description 09/01/2018 Release of Information Medical Records [address] [place] [address] Abstract, Provider Social History Tobacco Use Types [...] on filedocumented in this encounter Care Teams Cylinder Press Feeder Relationship Specialty Start Date End Date Sharon Vides PCP - General Internal Medicine 08/02/18 05/26/20 Brennan Burnett MD PCP - General Internal Medicine 05/27/20 12/07/21 Caitlyn Bowie MD [address] [place] [address] PCP - General Internal Medicine 12/08/21 Hayden Shah MD [address] [place] [address] Specialist Cardiovascular Disease 09/01/20 Pallavi Flood NP [address] [place] [address] Cardiology 09/01/20 documented as of this encounter
--- OUTSIDE RECORDS SUMMARY | 2024-08-30 13:08 | XMS_ITS | Encounter Summary ---
Author Organization [facility] Address [address] [place] [address] Care Team Providers Care Compounding Assistant Name Role Phone Cristofer Hope MD Primary Care Provider Victorino Read MD Primary Care Provider UnavailSharon Kimbrough Primary Care Provider Unava ilBrennan Newman MD Primary Care Provider Unavailab Hayden Montes MD Unavailable [phone] Pallavi Flood NP Unavailable [phone] Caitlyn Bowie MD Primary Care Provider Unava chhaya Encounter Details Date Type Department Care Team Description 06/21/2017 Release of Information Medical Records [address] [place] [address] Abstract, Provider Social History Tobacco Use Types [...] on filedocumented in this encounter Care Teams Compounding Assistant Relationship Specialty Start Date End Date Cristofer Hope MD PCP - General Internal Medicine 05/16/17 12/20/17 Victorino Martin MD PCP - General Internal Medicine 12/21/17 08/01/18 Sharon Vides PCP - General Internal Medicine 08/02/18 05/26/20 Brennan Burnett MD PCP - General Internal Medicine 05/27/20 12/07/21 Caitlyn Bowie MD [address] [place] [address] PCP - General Internal Medicine 12/08/21 Hayden Shah MD [address] [place] [address] Specialist Cardiovascular Disease 09/01/20 Pallavi Flood NP [address] [place] [address] Cardiology 09/01/20 documented as of this encounter
--- OUTSIDE RECORDS SUMMARY | 2024-08-30 13:08 | XMS_ITS | Encounter Summary ---
Author Organization [facility] Address [address] [place] [address] Care Team Providers Care Skein Spooler Name Role Phone Brennan Burnett MD Primary Care Provider Unavailab Hayden Montes MD Unavailable [phone] Pallavi Flood NP Unavailable [phone] Caitlyn Bowie MD Primary Care Provider Unava ilable Encounter Details Date Type Department Care Team Description 08/18/2020 SCAN Medical Records [address] [place] [address] Brennan Burnett MD Social History Tobacco Use [...] on filedocumented in this encounter Care Teams Skein Spooler Relationship Specialty Start Date End Date Bernnan Burnett MD PCP - General Internal Medicine 05/27/20 12/07/21 Caitlyn Bowie MD [address] [place] [address] PCP - General Internal Medicine 12/08/21 Hayden Shah MD [address] [place] [address] Specialist Cardiovascular Disease 09/01/20 Pallavi Flood NP [address] [place] [address] Cardiology 09/01/20 documented as of this encounter
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
--- OUTSIDE RECORDS SUMMARY | 2024-08-30 13:08 | XMS_ITS | Encounter Summary ---
Author Organization [facility] Address [address] [place] [address] Care Team Providers Care Mail Room Clerk Name Role Phone Victorino Martin MD Primary Care Provider UnavailSharon Kimbrough Primary Care Provider Unava ilable Brennan Burnett MD Primary Care Provider Unavailab Hayden Montes MD Unavailable [phone] Pallavi Flood NP Unavailable [phone] Caitlyn Bowie MD Primary Care Provider Unava chhaya Reason for Visit * Reason Comments E-prescribe Rx Request Encounter Details Date Type Department Care Team Description 07/01/2018 Refill Pulmonology [address] [place] [address] Henry Kelly MD E-prescribe Rx [...] / Plan[place] / Product Type: MEDICARE [id number] documented in this encounter Plan of Treatment Not on file documented as of this encounter Visit Diagnoses Not on filedocumented in this encounter Care Teams Mail Room Clerk Relationship Specialty Start Date End Date Victorino Martin MD PCP - General Internal Medicine 12/21/17 08/01/18 Sharon Vides PCP - General Internal Medicine 08/02/18 05/26/20 Brennan Burnett MD PCP - General Internal Medicine 05/27/20 12/07/21 Caitlyn Bowie MD [address] [place] [address] PCP - General Internal Medicine 12/08/21 Hayden Shah MD [address] [place] [address] Specialist Cardiovascular Disease 09/01/20 [place], Pallavi Day, TRIMMER HAND [address] [place] [address] Cardiology 09/01/20 documented as of this encounter
--- OUTSIDE RECORDS SUMMARY | 2024-08-30 13:08 | XMS_ITS | Encounter Summary ---
Author Organization [facility] Address [address] [place] [address] Care Team Providers Care Moth Exterminator Name Role Phone Sharon Vides Primary Care Provider Unava ilable Brennan Burnett MD Primary Care Provider Unavailab Hayden Montes MD Unavailable [phone] Pallavi Flood NP Unavailable [phone] Caitlyn Bowie MD Primary Care Provider Unava ilable Reason for Visit * Reason Onset Date Comments Ankle Pain 07/05/2019 le, foot pain Encounter Details Date Type Department Care Team Description 07/05/2019 Telephone General Surgery [address] [place] [address] Norma Mendoza MD [address] [place] [address] Ankle Pain (le, foot pain) Social History [...] on filedocumented in this encounter Care Teams Moth Exterminator Relationship Specialty Start Date End Date Sharon Vides PCP - General Internal Medicine 08/02/18 05/26/20 Brennan Burnett MD PCP - General Internal Medicine 05/27/20 12/07/21 Caitlyn Bowie MD [address] [place] [address] PCP - General Internal Medicine 12/08/21 Hayden Shah MD [address] [place] [address] Specialist Cardiovascular Disease 09/01/20 Pallavi Flood NP [address] [place] [address] Cardiology 09/01/20 documented as of this encounter
--- OUTSIDE RECORDS SUMMARY | 2024-08-30 13:08 | XMS_ITS | Encounter Summary ---
Author Organization [facility] Address [address] [place] [address] Care Team Providers Care Cooling Tower Operator Name Role Phone Sharon Vides Primary Care Provider Brennan Castro MD Primary Care Provider Unavailab Hayden Motnes MD Unavailable [phone] Pallavi Flood NP Unavailable [phone] Caitlyn Bowie MD Primary Care Provider Johnathon shaver Encounter Details Date Type Department Care Team Description 09/05/2018 Night Triage Doc Medical Records [address] [place] [address] Abstract, Provider Social History Tobacco Use Types [...] on filedocumented in this encounter Care Teams Cooling Tower Operator Relationship Specialty Start Date End Date Sharon Vides PCP - General Internal Medicine 08/02/18 05/26/20 Brennan Burnett MD PCP - General Internal Medicine 05/27/20 12/07/21 Caitlyn Bowie MD [address] [place] [address] PCP - General Internal Medicine 12/08/21 Hayden Shah MD [address] [place] [address] Specialist Cardiovascular Disease 09/01/20 Pallavi Flood NP [address] [place] [address] Cardiology 09/01/20 documented as of this encounter
--- OUTSIDE RECORDS SUMMARY | 2024-08-30 13:09 | XMS_ITS | Encounter Summary ---
Author Organization [facility] Address [address] [place] [address] Care Team Providers Care Explosive Operator Supervisor Name Role Phone Victorino Martin MD Primary Care Provider Sharon Odonnell Primary Care Provider Brennan Castro MD Primary Care Provider UnavailHayden Fernandez MD Unavailable [phone] Pallavi Flood NP Unavailable [phone] Caitlyn Bowie MD Primary Care Provider Johnathon shaver Encounter Details Date Type Department Care Team Description 01/26/2018 [facility] Medical Records [address] [place] [address] Renetta Lugo Np Social History Tobacco Use [...] on filedocumented in this encounter Care Teams Explosive Operator Supervisor Relationship Specialty Start Date End Date Victorino Martin MD PCP - General Internal Medicine 12/21/17 08/01/18 Sharon Vides PCP - General Internal Medicine 08/02/18 05/26/20 Brennan Burnett MD PCP - General Internal Medicine 05/27/20 12/07/21 Caitlyn Bowie MD [address] [place] [address] PCP - General Internal Medicine 12/08/21 Hayden Shah MD [address] [place] [address] Specialist Cardiovascular Disease 09/01/20 Pallavi Flood NP [address] [place] [id number] Cardiology 09/01/20 documented as of this encounter
--- OUTSIDE RECORDS SUMMARY | 2024-08-30 13:09 | XMS_ITS | Encounter Summary ---
Author Organization [facility] Address [address] [place] [address] Care Team Providers Care Manager Surgical Name Role Phone Sharon Vides Primary Care Provider Unava ilable Brennan Burnett MD Primary Care Provider Unavailab Hayden Montes MD Unavailable [phone] Pallavi Flood NP Unavailable [phone] Caitlyn Bowie MD Primary Care Provider Unava ilable Reason for Visit * Reason Onset Date Comments hospital follow up 12/17/2018 records Encounter Details Date Type Department Care Team Description 12/17/2018 Telephone Pulmonology [facility] [address] [facility] [address] [place] [address] Henry Kelly MD hospital follow [...] - 12/17/2018 1:48 PM EDT Medical Records: [phone] Ron (patient services) [phone] * Telephone Encounter - Kelly Gallo M.A. - 12/17/2018 1:46 PM EDT Hospital follow up appointment needed Hospital patient was treated at: [facility] Was this only an ER visit [...] filedocumented in this encounter Care Teams Manager Surgical Relationship Specialty Start Date End Date Sharon Vides PCP - General Internal Medicine 08/02/18 05/26/20 Brennan Burnett MD PCP - General Internal Medicine 05/27/20 12/07/21 Caitlyn Bowie MD [address] [place] [address] PCP - General Internal Medicine 12/08/21 Hayden Shah MD [address] [place], [place] [phone] Specialist Cardiovascular Disease 09/01/20 Pallavi Flood NP [address] [place] [address] Cardiology 09/01/20 documented as of this encounter
--- OUTSIDE RECORDS SUMMARY | 2024-08-30 13:09 | XMS_ITS | Encounter Summary ---
Author Organization [facility] Address [address] [place] [address] Care Team Providers Care Manager Lean Name Role Phone Victorino Martin MD Primary Care Provider Sharon Odonnell Primary Care Provider Brennan Castro MD Primary Care Provider UnavailHayden Fernandez MD Unavailable [phone] Pallavi Flood NP Unavailable [phone] Caitlyn Bowie MD Primary Care Provider Johnathon shaver Encounter Details Date Type Department Care Team Description 03/01/2018 Crate Maker Report Medical Records [address] [place] [address] Renetta Lugo Np Social History Tobacco Use [...] filedocumented in this encounter Care Teams Manager Lean Relationship Specialty Start Date End Date Victorino Martin MD PCP - General Internal Medicine 12/21/17 08/01/18 Sharon Vides PCP - General Internal Medicine 08/02/18 05/26/20 Brennan Burnett MD PCP - General Internal Medicine 05/27/20 12/07/21 Caitlyn Bowie MD [address] [place] [address] PCP - General Internal Medicine 12/08/21 Hayden Shah MD [address] [place], [place] [phone] Specialist Cardiovascular Disease 09/01/20 Pallavi Flood NP [address] [place] [address] [phone] Cardiology 09/01/20 documented as of this encounter
--- OUTSIDE RECORDS SUMMARY | 2024-08-30 13:09 | XMS_ITS | Clinical Summary ---
Author Organization [facility] Address [address] [place] [address] Care Team Providers Care Restaurant Expeditor Name Role Phone Brennan Burnett MD Primary Care Provider [phone] Allergies Active Allergy Reactions Criticality Noted Date [...] age to complete this topic Care Teams Restaurant Expeditor Relationship Specialty Start Date End Date Brennan Burnett MD [address] [place] [address] PCP - General Internal Medicine 07/06/20
--- OUTSIDE RECORDS SUMMARY | 2024-08-30 13:09 | XMS_ITS | Encounter Summary ---
Author Organization [facility] Address [address] [place] [address] Care Team Providers Care Boiler House Operator Name Role Phone Victorino Martin MD Primary Care Provider Sharon Odonnell Primary Care Provider Brennan Castro MD Primary Care Provider UnavailHayden Fernandez MD Unavailable [phone] Pallavi Flood NP Unavailable [phone] Caitlyn Bowie MD Primary Care Provider Johnathon shaver Encounter Details Date Type Department Care Team Description 01/28/2018 [facility] Medical Records [address] [place] [address] Arianne Sigala MD Social History Tobacco Use Types Packs/Day [...] on filedocumented in this encounter Care Teams Boiler House Operator Relationship Specialty Start Date End Date Victorino Martin MD PCP - General Internal Medicine 12/21/17 08/01/18 Sharon Vides PCP - General Internal Medicine 08/02/18 05/26/20 Brennan Burnett MD PCP - General Internal Medicine 05/27/20 12/07/21 Caitlyn Bowie MD [address] [place] [address] PCP - General Internal Medicine 12/08/21 Hayden Shah MD [address] [place], [place] [phone] Specialist Cardiovascular Disease 09/01/20 Pallavi Flood NP [address] [place] [address] [phone] Cardiology 09/01/20 documented as of this encounter
--- OUTSIDE RECORDS SUMMARY | 2024-08-30 13:09 | XMS_ITS | Encounter Summary ---
Author Organization [facility] Address [address] [place] [address] Care Team Providers Care Set Making Machine Operator Name Role Phone Victorino Martin MD Primary Care Provider Sharon Odonnell Primary Care Provider Brennan Castro MD Primary Care Provider UnavailHayden Fernandez MD Unavailable [phone] Pallavi Flood NP Unavailable [phone] Caitlyn Bowie MD Primary Care Provider Johnathon shaver Encounter Details Date Type Department Care Team Description 02/07/2018 Linux Security Administrator Report Medical Records [address] [place] [address] Victorino Martin MD Social History Tobacco Use [...] on filedocumented in this encounter Care Teams Set Making Machine Operator Relationship Specialty Start Date End Date Victorino Martin MD PCP - General Internal Medicine 12/21/17 08/01/18 Sharon Vides PCP - General Internal Medicine 08/02/18 05/26/20 Brennan Burnett MD PCP - General Internal Medicine 05/27/20 12/07/21 Caitlyn Bowie MD [address] [place] [address] PCP - General Internal Medicine 12/08/21 Hayden Shah MD [address] [place] [address] [phone] Specialist Cardiovascular Disease 09/01/20 Pallavi Flood NP [address] [place] [address] [phone] Cardiology 09/01/20 documented as of this encounter
--- OUTSIDE RECORDS SUMMARY | 2024-08-30 13:09 | XMS_ITS | Encounter Summary ---
Author Organization [facility] Address [address] [place] [address] Care Team Providers Care Podopediatrician Name Role Phone Sharon Vides Primary Care Provider Brennan Castro MD Primary Care Provider Unavailab Hayden Montes MD Unavailable [phone] Pallavi Flood NP Unavailable [phone] Caitlyn Bowie MD Primary Care Provider Johnathon shaver Encounter Details Date Type Department Care Team Description 12/30/2018 Pt. Non Urgent Medic al Question Pulmonology - [place] [address] [facility] [address] [place] [address] Henry Kelly MD Social History [...] on filedocumented in this encounter Care Teams Podopediatrician Relationship Specialty Start Date End Date Sharon Vides PCP - General Internal Medicine 08/02/18 05/26/20 Brennan Burnett MD PCP - General Internal Medicine 05/27/20 12/07/21 Caitlyn Bowie MD [address] [place] [address] PCP - General Internal Medicine 12/08/21 Hayden Shah MD [address] [place] [address] [phone] Specialist Cardiovascular Disease 09/01/20 Pallavi Flood NP [address] [place] [address] [phone] Cardiology 09/01/20 documented as of this encounter
--- OUTSIDE RECORDS SUMMARY | 2024-08-30 13:09 | XMS_ITS | Encounter Summary ---
Author Organization [facility] Address [address] [place] [address] Care Team Providers Care Ham Sawyer Name Role Phone Sharon Vides Primary Care Provider Brennan Castro MD Primary Care Provider Unavailab Hayden Montes MD Unavailable [phone] Pallavi Flood NP Unavailable [phone] Caitlyn Bowie MD Primary Care Provider Johnathon shaver Encounter Details Date Type Department Care Team Description 02/07/2019 [facility] Medical Records [address] [place] [address] Landen Aaron DO Social History Tobacco Use [...] on filedocumented in this encounter Care Teams Ham Sawyer Relationship Specialty Start Date End Date Sharon Vides PCP - General Internal Medicine 08/02/18 05/26/20 Brennan Burnett MD PCP - General Internal Medicine 05/27/20 12/07/21 Caitlyn Bowie MD [address] [place] [address] PCP - General Internal Medicine 12/08/21 Hayden Shah MD [address] [place], [place] [phone] Specialist Cardiovascular Disease 09/01/20 Pallavi Flood NP [address] [place], [place] [phone] Cardiology 09/01/20 documented as of this encounter
--- OUTSIDE RECORDS SUMMARY | 2024-08-30 13:09 | XMS_ITS | Encounter Summary ---
Author Organization [facility] Address [address] [place] [address] Care Team Providers Care Records Specialist Name Role Phone Sharon Vides Primary Care Provider Brennan Castro MD Primary Care Provider Unavailab Hayden Montes MD Unavailable [phone] Pallavi Flood NP Unavailable [phone] Caitlyn Bowie MD Primary Care Provider Johnathon shaver Encounter Details Date Type Department Care Team Description 01/09/2019 Hospital Medical Records [address] [place] [address] Norma Mendoza MD [address] [place] [address] Social History Tobacco Use Types Packs/Day Years [...] on filedocumented in this encounter Care Teams Records Specialist Relationship Specialty Start Date End Date Sharon Vides PCP - General Internal Medicine 08/02/18 05/26/20 Brennan Burnett MD PCP - General Internal Medicine 05/27/20 12/07/21 Caitlyn Bowie MD [address] [place] [address] PCP - General Internal Medicine 12/08/21 Hayden Shah MD [address] [place] [address] Specialist Cardiovascular Disease 09/01/20 Pallavi Flood NP [address] [place] [address] [phone] Cardiology 09/01/20 documented as of this encounter
--- OUTSIDE RECORDS SUMMARY | 2024-08-30 13:09 | XMS_ITS | Continuity of Care Document ---
Author Organization [facility] Address [address] [place] [address] [address] [place] [address] Phone Care Team Providers Care Superintendent Oil Field Drilling Name Role Phone Musa Hughes M.D. Unavailable [...] Encounter [facility], [address] [place] [address], [id number], tel:[phone] [facility] [place] No Information Saul Vigil. [address] [place] [address], [address] [place] [address] , . tel: [phone] Exam Level V [facility], [address] [place] [address], [id number], tel:[phone] [facility] [place] Visual Field Defect UnspOptic NeuritisLow Tension GlaucomaHeadacheH emangioma, Unspecified SiteMultiple SclerosisPhotopsi aDiplopiaConverge nce InsufficiencyDry Eye Syndrome Huy Foster. [address] [place] [address], [address] [place] [address] , . tel: [phone] Referring Provider: MD Mariama Persaud, [address] [place] [address] [place], [address]. tel:[phone] New Pt. Level V [facility] Renea aCrrillo, [address] [place] [address], [id number], tel:[phone] [facility] [place] - (chief complaint) - (chief complaint) - (chief complaint) - (chief complaint) - (chief complaint) - (chief complaint) Optic NeuritisHeadacheV isual Field Defect UnspLow Tension GlaucomaLow Tension GlaucomaOptic NeuritisSeizure DisorderVisual Field Defect UnspHemangioma, Unspecified SiteConvergence InsufficiencyCoag defect von Willebrand dis 1 Huy Foster. [address] [place] [address], [id number] , . tel: [phone] Referring Provider: MD Mariama Persaud, [address] [place] [address] [place], [address]. tel:[phone] Family History Family Member Type Diagnosis Age At Onset Sister Problem (finding) Leukemia Mother Problem (finding) Cancer, lung Payers Payer name Insurance type Covered libertarian ID Authoriza tion(s) Medicare Primary [place] [id number] BCBS NATIONAL PLAN [id number] Social History Type Description Quantity Date Captured [...]
--- OUTSIDE RECORDS SUMMARY | 2024-08-30 13:09 | XMS_ITS | Encounter Summary ---
Author Organization [facility] Address [address] [place] [address] Care Team Providers Care Bicycle Messenger Name Role Phone Victorino Martin MD Primary Care Provider UnavailSharon Kimbrough Primary Care Provider Unava ilable Brennan Burnett MD Primary Care Provider Unavailab Hayden Montes MD Unavailable [phone] Pallavi Flood NP Unavailable [phone] Caitlyn Bowie MD Primary Care Provider Unava chhaya Reason for Visit * Reason Onset Date Comments Medical Records 05/10/2018 Encounter Details Date Type Department Care Team Description 05/10/2018 Telephone Pulmonology - [address] [place] [address] Henry Kelly MD Medical Records [...] the one that she had done at [facility] was not in the records, nor was the information about all the times that she had pnuemonia. She wants to make sure thatyou meant to give her two copies of the same procedure. documented in this encounter Plan of Treatment Not on file documented as of this encounter Visit Diagnoses Not on filedocumented in this encounter Care Teams Bicycle Messenger Relationship Specialty Start Date End Date Victorino Martin MD PCP - General Internal Medicine 12/21/17 08/01/18 Sharon Vides PCP - General Internal Medicine 08/02/18 05/26/20 Brennan Burnett MD PCP - General Internal Medicine 05/27/20 12/07/21 Caitlyn Bowie MD [address] [place] [address] PCP - General Internal Medicine 12/08/21 Hayden Shah MD [address] [place] [address] Specialist Cardiovascular Disease 09/01/20 Pallavi Flood NP [address] [place] [address] Cardiology 09/01/20 documented as of this encounter
--- OUTSIDE RECORDS SUMMARY | 2024-08-30 13:09 | XMS_ITS | Data Portability ---
Author Organization [place] [facility], [facility] Address [address] [place] [address] Care Team Providers Care Industrial Machinery Mechanic Name Role Phone EVELIN RAMSAY Primary [...] 911 activated Plan/Discussion: EMS handoff given to [facility] In order to obtain further information and compare any laboratory results/values, I have accessed old patient records. This information was pertinent in my medical decision making today. [email or web address] Not available 03/14/2021 13:20:46 07/18/2021 07/18/2021 Overview/History [...] as of yet. 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 This [...] after care of this patient according to [facility]'s infection prevention protocols. Time On Scene with [...] blood on her pillow approximately 3 [place] when she woke this morning. She has [...] after care of this patient according to [facility]'s infection prevention protocols. [email or web address] Not available 12/29/2021 14:43:37 Plan of Treatment Reminders Order Date Submit Date Provider Last Modified By Organization Details Last Modified Time Details Appointments None recorded. Lab None recorded. Referral None recorded. Procedures None recorded. Surgeries None recorded. Imaging None recorded. Medication Orders docusate sodium 100 mg capsule 2021 022 lnovia [facility], [address] [facility], [place], [address], 19:28:14 Patient TargetsNo targets recorded. Patient Instructions Encounter Date Encounter Id Patient Instructions Last Modified By Organization Details Last Modified Time 03/14/2021 [id number] Thank you for yo ur visit with [facility] today. You were seen today for abdominal [...] in your condition between 8am-10pm, please call [facility] at [phone] to help navigate your care. [email or web address] Not available 03/14/2021 12:46:32 10/18/2021 [id number] It was great to see you today! Thank you for letting [facility] assist you in your medical needs today. [...] follow up with your PCP [facility]. Please present to the nearest [...] INR 1.2 0.9-1. 2 Not Available Den Palermo [facility] [address] [facility] [place], [address], 02/11/2021 16:58:14 02/12/20 21 02/11/2021 , sylvia vance lower extre mity No observ ation record ed. [address] (Imaging) [address] [place], [address], 02/12/2021 08:19:41 Result Notes None recorded. Problems Name Problem SNOMED Code Status Onset Date Resolution Date Notes Provider Name and Address Organization Details Recorded Time Chronic obstructive pulmonary disease 69699977 Active 2018 ARCELIA PATELALON WINSTON [address], [place], [address], [place] [facility] 9 12:59:21 Problem Notes None recorded. Procedures Surgical History Date Name Laterality Status Provider Name and Address Organization Details Recorded Time Total Hysterectomy completed Cristine Sidhu, BOX PRESS OPERATOR [address], [place], [address], [place] [facility] 10/18/2021 19:39:45 lobectomy of lung completed Cristine frazier, BOX PRESS OPERATOR [address], [place], [address], [place] [facility] 10/18/2021 19:40:05 Remove tonsils and adenoids completed Cristine Sidhu, ALON [address], [place], [address], [place] [facility] 10/18/2021 19:40:22 Imaging Results Imaging Date Name Status LastModified by Organiz ation Details LastModified Time 02/11/2021 US, duplex, venous, lower extremity completed [address] (Imaging) [address] [place], [address], 02/12/2021 08:19:41 Procedure Notes None recorded. Medical Equipment None Reported. Allergies Allergen ID Allergen Name Allergen Category Reaction Reaction Severity Criticality Documentation Date Start Date Code Code System Note Provider Name and Address Organization Details Recorded Time 66290 Product containin g penicilli n (product) medicatio n Not available Not available Not available 06/15/2019 19801 8001 SNOMED ARCELIA PATELTISH BOX PRESS OPERATOR [address], [place], [address], [place] [facility] 9 12:56:48 58371 Substance with sulfonami de structure and antibacte rial mechanism of action (substanc e) medicatio n Not available Not available Not available 06/15/2019 22622 8003 SNOMED ARCELIA FAJARDO , BOX PRESS OPERATOR [address], [place], [address], [place] [facility] 9 12:56:54 05154 Voltaren medicatio n Not available Not available Not available 06/15/201951186 6 RxNorm ARCELIA FAJARDO , BOX PRESS OPERATOR [address], [place], [address], [place] [facility] 9 12:57:01 91631 Iodinated contrast media (substanc e) medicatio n Not available Not available Not available 06/15/2019 52002 2004 SNOMED ARCELIA FAJARDO , BOX PRESS OPERATOR [address], [place], [address], [place] [facility] 9 12:57:07 70381 vancomyci n medicatio n Not available Not available Not available 06/15/2019 66064 RxNorm ARCELIA FAJARDO , BOX PRESS OPERATOR [address], [place], [address], [place] [facility] 9 12:57:14 47709 gentamici n medicatio n Not available Not available Not available 06/15/2019 25657 50 RxNorm ARCELIA FAJARDO , BOX PRESS OPERATOR [address], [place], [address], [place] [facility] 9 12:57:20 86276 Biaxin medicatio n Not available Not available Not available 06/15/201953238 9 RxNorm ARCELIA FAJARDO , BOX PRESS OPERATOR [address], [place], [address], [place] [facility] 9 12:57:27 81450 Avelox medicatio n Not available Not available Not available 06/15/2019 28080 6 RxNorm ARCELIA FAJARDO , BOX PRESS OPERATOR [address], [place], [address], [place] [facility] 9 12:57:34 29499 erythromy jaylon medicatio n Not available Not available Not available 06/15/2019 4053 RxNorm ARCELIA FAJARDO , BOX PRESS OPERATOR [address], [place], [address], [place] [facility] 9 12:57:41 87551 Zithromax medicatio n Not available Not available Not available 06/15/2019 54472 4 RxNorm ARCELIA FAJARDO , BOX PRESS OPERATOR [address], [place], [address], [place] [facility] 9 12:57:51 81352 Levaquin medicatio n Not available Not available Not available 06/15/2019 21337 2 RxNorm ARCELIA FAJARDO , BOX PRESS OPERATOR [address], [place], [address], [place] [facility] 9 12:58:02 86811 Cipro medicatio n Not available Not available Not available 06/15/2019 86677 3 RxNorm ARCELIA FAJARDO , BOX PRESS OPERATOR [address], [place], [address], [place] [facility] 9 12:58:08 31008 morphine medicatio n Not available Not available Not available 06/15/2019 7052 RxNorm ARCELIA FAJARDO , BOX PRESS OPERATOR [address], [place], [address], [place] [facility] 9 12:58:20 62846 procaine hydrochlo ride medicatio n Not available Not available Not available 06/15/2019 85698 8 RxNorm ARCELIA FAJARDO , BOX PRESS OPERATOR [address], [place], [address], [place] [facility] 9 12:58:42 37616 barium sulfate medicatio n Not available Not available Not available 06/15/2019 1331 RxNorm ARCELIA FAJARDO , BOX PRESS OPERATOR [address], [facility] [place], [address], [place] [facility] 9 12:58:54 22133 Gastrogra fin medicatio n Not available Not available Not available 06/15/2019 91158 5 RxNorm ARCELIA FAJARDO , BOX PRESS OPERATOR [address], [place], [address], [place] [facility] 9 12:59:01 28804 Flagyl medicatio n Not available Not available Not available 06/15/201953597 6 RxNorm ARCELIA FAJARDO , ALON [address], [place], [address], [place] [facility] 9 12:59:06 54661 shrimp allergeni c extract food Not available Not available Not available 06/15/2019 24431 2 RxNorm ARCELIA FAJARDO , BOX PRESS OPERATOR [address], [place], [address], [place] [facility] [...] completed Not Available Not Available Not Available [facility] 100,000 unit/gram topical powder APPLY ONE [...] [degF] 114 mm[Hg] 62 mm[Hg] Not Available [facility] 1 12:53:01 Date Recorded Respiratory rate Oxygen saturation Oxygen saturation in Arterial blood by Pulse oximetry Heart rate Body temperature Systolic blood pressure Diastolic blood pressure Provider Name and Address Organization Details Last Updated DateTime 2 18 /min 98 % 98 % 84 /min 98.9 [degF] 112 mm[Hg] 58 mm[Hg] Not Available [facility] 2 11:16:01 Date Recorded Heart rate Oxygen saturation Oxygen saturation in Arterial blood by Pulse oximetry Respiratory rate Body temperature Systolic blood pressure Diastolic blood pressure Systolic blood pressure Diastolic blood pressure Provider Name and Address Organization Details Last Updated DateTime 2 80 /min 96 % 96 % 18 /min 98.9 [degF] 142 mm[Hg] 66 mm[Hg] 128 mm[Hg] 60 mm[Hg] Not Available [facility] 2 20:16:17 Date Recorded Oxygen saturation Oxygen saturation in Arterial blood by Pulse oximetry Heart rate Respiratory rate Body temperature Systolic blood pressure Diastolic blood pressure Provider Name and Address Organization Details Last Updated DateTime 2 96 % 96 % 77 /min 18 /min 98.6 [degF] 122 mm[Hg] 60 mm[Hg] Not Available [facility] 2 13:41:00 Social History Question Answer Notes LastModified by Organizat ion Details LastModified Time Tobacco Smoking Status Never Smoker ARCELIA FAJARDO NP [address] [place], [address], [place] [facility] 06/15/2019 13:05:25 Do You Have An Advance [...] None Information not available 10/18/2021 Marital Status syevelia Informatio n not available 06/15/2019 What Was [...] available 2021 19:35:02 Medical History Condition Response Hypothyroidism Y COPD Y Cancer Y Stroke N High Cholesterol Y Kidney Disease N Diabetes N Pulmonary Embolism Y Hypertension N Gynecological HistoryNo gynecological history recorded. Obstetrics History GPAL:G 0 P 0 0 0 0 Past Encounters Encounter ID Performer Location Encounter Start Date Encounter Closed Date Diagnosis/Indication Diagnosis SNOMED-CT Code Diagnosis ICD10 Code Diagnosis Note [id number] ARCELIA FAJARDO NP [facility] [address] [facility] [place] [address] 06/15/2019 12:54:37 06/17/2019 13:06:33 Excoriation of skin 831282226 T14.8XXA [id number] JANIS GILBERT NP [facility] [address] [facility] [address] 11/13/2019 16:03:00 11/18/2019 14:53:37 Pain in lower limb 60330979 M79.661 [id number] ARCELIA FAJARDO NP [facility] [address] [facility] [address] 03/14/2020 20:02:43 03/18/2020 21:30:46 Traumatic hematoma 808110173 T14.8XXA Long-term current use of anticoagulant 907808306 Z79.01 Pain in left foot 339599 8427 75762 M79.672 [id number] EMELIA TOMPKINS [facility] [address] [place] [address] 03/20/2020 12:50:59 03/23/2020 17:54:28 Contusion of lower leg 18737199 S80.10XA Swelling of lower leg 44 3275880 R22.42 [id number] [facility] [address] [facility] [place] [address] 09/29/2020 11:41:21 09/29/2020 12:38:57 Pain of intercostal space 333970796 R07.82 Exposure t o communicable disease 045218096 Z20.822 [id number] Waleska Matos, BOX PRESS OPERATOR [facility] [address] [place] [address] 02/11/2021 16:34:32 02/12/2021 11:08:44 Hematoma of lower leg 608559051 S80.11XA [id number] JAMES RADHA BOX PRESS OPERATOR [facility] [address] [place] [address] 03/14/2021 12:45:30 03/19/2021 14:09:43 Abdominal pain 73969310 R10.9 [id number] EMELIA Alfonso [facility] [address] [place] [address] 07/18/2021 10:56:56 07/22/2021 23:43:22 Constipation 27852697 K59.00 Left lower quadrant pain 044343880 R10.32 [id number] Cristine Sidhu NP [facility] [address] [place] [address] 10/18/2021 19:17:00 11/10/2021 16:33:03 Left sided abdominal pain 088584266 R10.9 Hematoma of lower leg 44 0304777 S80.10XA Long-term current use of anticoagulant 271285952 Z79.01 [id number] Cristine Sidhu NP [facility] [address] [place] [address] 12/29/2021 13:36:24 12/30/2021 10:20:27 Blood coagulation disorder 44661079 D68.61 D68.2 [id number] Olivia Goldberg BOX PRESS OPERATOR [facility] [address] [place] [address] 01/18/2023 14:00:39 01/18/2023 15:01:49 Health Concerns Section Related Observation LastModified by Organization Detai ls LastModified Time None Recorded Concern Status LastModified by Organization Details LastModified Time None Recorded Advance Directives Directive Y: Payers Encounter Date Sequence Insurance Name Policy Number Policy Pettit Covered Member ID Pettit Member ID Guarantor Name 03/14/2021 1 [place] [employer] Jovana Malik [id number] Jovana Malik 03/14/2021 2 [place] [id number] Jovana Steinino [id number] Jovana Steinino 07/18/2021 1 [place]: [facility] Jovana Malik [id number] Jovana Steinino 07/18/2021 2 [place] [id number] Jovana Steinino [id number] Jovana Steinino 10/18/2021 1 [place] [facility] Jovana Steinino [id number] Jovana Helena 10/18/2021 2 [place] [id number] Jovana Steinino [id number] Jovana Steinino 12/29/2021 1 [place] [facility] Jovana Malik [id number] Jovana Helena 12/29/2021 2 [facility] ([place] [id number] Jovana Steinino [id number] Jovana Steinino 01/18/2023 1 [place] [facility] Jovana Malik [id number] Jovana [place] 01/18/2023 2 [place] [id number] Jovana Steinino [id number] Jovana Malik Notes Date Note Type Note Provider Name and Address Organization Details Recorded Time 1 text/html This is a 75-year-old female, [facility], who calls with concerns for severe abdominal [...] intake. JAMES GARCIA NP [address], [place], [address], [place] [facility] 03/14/2021 13:21:32 2 text/html [...] asscociated sx's. EMELIA Ni [address], [place], [address], [place] [facility] 07/18/2021 12:04:00 2 text/html [...] evaluated. Cristine Sidhu NP [address], [place], [address], [place] [facility] 11/09/2021 02:11:05 2 text/html [...] supernatural. Cristine Sidhu NP [address], [place], [address], [place] [facility] 12/29/2021 14:43:53 3 text/html pt did not answer, visit canceled Olivia Goldberg NP [address], [place], [address], [place] [facility] 01/18/2023 19:34:36 OBGyn Episode No OBEpisode recorded.
--- OUTSIDE RECORDS SUMMARY | 2024-08-30 13:09 | XMS_ITS | Encounter Summary ---
Author Organization [facility] Address [address] [place] [address] Care Team Providers Care Search Consultant Name Role Phone Pcp, No Primary Care Provider Brennan Mario MD Primary Care Provider [phone] Caitlyn Bowie MD Primary Care Provider [phone] Encounter Details Date Type Department Care Team (Late st Contact Info) Description 01/04/2022 Scanned Document [facility] Neurology Ophthalmology [address] [address] Yary Whitten DO [address] [place] [address] Social History Tobacco Use Types Packs/Day [...] on filedocumented in this encounter Care Teams Search Consultant Relationship Specialty Start Date End Date Pcp, No PCP - General General Medicine 10/04/21 07/18/22 Brennan Burnett MD [address] [place] [address] PCP - General 07/19/22 03/19/23 Caitlyn Bowie MD [address] [place] [address] PCP - General Internal Medicine 03/20/23 documented as of this encounter
--- OUTSIDE RECORDS SUMMARY | 2024-08-30 13:09 | XMS_ITS | Encounter Summary ---
Author Organization [facility] Address [address] [place] [address] Care Team Providers Care Help Desk Agent Name Role Phone Victorino Martin MD Primary Care Provider Sharon Odonnell Primary Care Provider Brennan Castro MD Primary Care Provider UnavailHayden Fernandez MD Unavailable [phone] Pallavi Flood NP Unavailable [phone] Caitlyn Bowie MD Primary Care Provider Johnathon shaver Encounter Details Date Type Department Care Team Description 01/22/2018 Hydroelectric Component Machinist Report Medical Records [address] [place] [id number] Abstract, Provider Social History Tobacco Use Types [...] on filedocumented in this encounter Care Teams Help Desk Agent Relationship Specialty Start Date End Date Victorino Martin MD PCP - General Internal Medicine 12/21/17 08/01/18 Sharon Vides PCP - General Internal Medicine 08/02/18 05/26/20 Brennan Burnett MD PCP - General Internal Medicine 05/27/20 12/07/21 Caitlyn Bowie MD [address] [place] [address] PCP - General Internal Medicine 12/08/21 Hayden Shah MD [address] [place] [id number] Specialist Cardiovascular Disease 09/01/20 Pallavi Flood NP [address] [place], [place] [address] Cardiology 09/01/20 documented as of this encounter
--- OUTSIDE RECORDS SUMMARY | 2024-08-30 13:09 | XMS_ITS | Patient Health Record ---
Author Organization [facility] Address [address] [facility] [address] [address] [place] [address] Care Team Providers Care Tooth Cutter Pinion Name Role Phone EVELIN RAMSAY Primary Care Provider Yenny Hou Unavailable [phone] Allergies Allergen (clinical drug ingredient) Drug/Non Drug [...] Component Value Reference Range Notes Urinalysis Reviewed date:05/03/2024 04:40:26 PM Interpretation: Performing Lab: Notes/Report: NITRITE Neg PH 6.0 PROTEIN Neg S.G 1.010 WBC Neg GLUCOSE Neg KETONES Neg UROBILINOGEN Neg BILIRUBIN Neg BLOOD Neg Urinalysis, Complete-[id number] Reviewed date:05/04/2024 11:35:42 PM Interpretation: Performing Lab:[facility], [address] [facility], [place], Phone - [phone], Director - Arely Notes/Report: Specific [place] 1.009 1.005-1.030 pH 6.5 5.0-7.5 Urine-Color Yellow [...] seen /lpf Bacteria None seen None seen/Few Urine Culture, Routine-[id number] Reviewed date:05/04/2024 11:35:22 PM Interpretation: Performing Lab:[facility], [address] [place] [address], Phone - [phone], Director - MDJodry Notes/Report: Urine Culture, Routine Final report Result 1 Culture shows less than 10,000 colony forming units of bacteria per milliliter of urine. This colony count is not generally considered to be clinically significant. Urinalysis Reviewed date:07/09/2024 11:03:01 AM Interpretation: Performing Lab: Notes/Report: NITRITE NEG PH 6.0 PROTEIN TR S.G 1.015 WBC NEG GLUCOSE NEG KETONES NEG UROBILINOGEN NEG BILIRUBIN NEG BLOOD NEG PDF Report Reviewed date:05/04/2024 11:35:04 PM Interpretation: Performing Lab:[facility] Mcmahon, [address] [facility], [place], Phone - [phone], Director - MDJodry Notes/Report: Reason For Referral No Information Medications Medication [...] Synthroid 25MCG 1 ORAL daily for -3 [facility] 06/10/2014 Active ZyrTEC Allergy 10MG 1 ORAL [...] 1 ORAL at bedtime fo r -3 [facility] 06/10/2014 Active Meclizine HCl 25 MG 1 tablet as needed Orally [facility] 06/10/2014 Active Albuterol Sulfate (2.5 MG/3ML)0.083% Inhalation 4 x a day prn 06/10/2014 Active Valium 5MG 1 tablet as needed O RAL at bedtime, 1/2 tab prn during the day [facility] 06/10/2014 Active Social History Tobacco Use: Social [...] Status Risk Notes Problem Postmenopausal atrophic vaginitis (62690660) Postmenopausal atrophic vaginitis (N95.2) Active confirmed Problem Age-related osteoporosis (971436871) Age-related osteoporosis without current pathological fracture (M81.0) Active confirmed Problem Urgent desire to urinate (23351517) Urgency of urination (R39.15) Active confirmed Problem 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 Problem Chronic systolic heart failure (494238852) Chronic systolic (congestive) heart failure (I50.22) Active confirmed Problem Chronic obstructive pulmonary disease (23796989) Chronic obstructive pulmonary disease, unspecified (J44.9) Active confirmed Problem Functional urinary incontinence (372643682) Functional 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) Active confirmed Problem Personal history of primary malignant neoplasm of bronchus (387153851) 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) Active confirmed Vital Signs Temperature 97.7 degrees Fahrenheit 07/18/2024 Blood pressure diastolic 62 mm Hg 07/18/2024 Height 63 in 07/18/2024 Blood pressure systolic 102 mm Hg 07/18/2024 Weight 126 lbs 07/18/2024 BMI 22.32 kg/m2 07/18/2024 Encounters Encounter Location Date Provider Diagnosis Total [address] [address] 05/03/2024 Yenny Elizalde Urgency of urination R39.15 and Abscess of vulva N76.[address] [address] 05/10/2024 Yenny Elizalde Abscess of vulva N76 .[address] [address] 05/17/2024 Yenny Elizalde Abscess of vulva N76 .[address] [address] 07/09/2024 Yenny Elizalde Urgency of urination R39.15 ; Acute vaginitis N76.0 and Postmenopausal atrophic vaginitis N95.[address] [address] 07/18/2024 Yennydorothy Lovettva Encounter for screening mammogram for malignant neoplasm of breast Z12.31 and Mastodynia N64.[address] [address] 05/10/2024 Yenny Elizalde [facility] [address] [address] 05/13/2024 Yenny Elizalde Total [address] [place] [address] 06/11/2024 Yenny Roweueva Assessments Encounter Date Diagnosis [...] [facility]ED [facility] AND DISCUSSED THIS PAT. THEY [...] Urinalysis 07/01/2019 COMPLETE URINALYSIS 12/16/2019 URINE CULTURE 12/16/2019 URINE CULTURE 10/08/2018 MM Digital Mammo Screening 07/18/2024 Insurance Providers Payer Name Payer Address Payer Phone Subscriber Number Group Number Insured Name Patient Relationship to Insured Coverage Start Date Coverage End Date MEDICARE [address] VEDA NIEVES [id number] [phone] [id number] CINDA WATSON Self - patient is the insured MED[employer] [address] [place] [address] [id number] CINDA WATSON Self - patient is [...]
--- OUTSIDE RECORDS SUMMARY | 2024-08-30 13:09 | XMS_ITS | Encounter Summary ---
Author Organization [facility] Address [address] [place] [address] Care Team Providers Care Talent Acquisition Manager Name Role Phone Caitlyn Bowie MD Primary Care Provider [phone]- [phone] Encounter Details Date Type Department Care Team (Late st Contact Info) Description 03/20/2023 Scanned Document [facility] [address] [place] [address] Caitlyn Bowie MD [address] [place] [address] Social History Tobacco Use Types Packs/Day Years [...] on filedocumented in this encounter Care Teams Talent Acquisition Manager Relationship Specialty Start Date End Date Caitlyn Bowie MD [address] [place] [address] PCP - General Internal Medicine 03/20/23 documented as of this encounter
--- OUTSIDE RECORDS SUMMARY | 2024-08-30 13:09 | XMS_ITS | Encounter Summary ---
Author Organization [facility] Address [address] [place] [address] Care Team Providers Care Project Management Name Role Phone Cristofer Hope MD Primary Care Provider Maria GuadalupevaVictorino Negrete MD Primary Care Provider Unavaila Sharon Rios Primary Care Provider Unava ilable Brennan Burnett MD Primary Care Provider Unavailab Hayden Montes MD Unavailable [phone] Pallavi Flood NP Unavailable [phone] Caitlyn Bowie MD Primary Care Provider Unava ilable Reason for Visit * Reason Onset Date Comments Medication 10/26/2017 Encounter Details Date Type Department Care Team Description 10/26/2017 Telephone Pulmonology - [address] [place] [address] Leslie Caro NP Medication Social [...] EDT Pharmacist Mat from [facility] [place] said that they are not carrying Ephinephrine 0.3mg/0.30ml in the brand her insurance pays for he said to call [phone] [facility] [id number] ifTfareed can expatiated this documented in this encounter Plan of Treatment Not on file documented as of this encounter Visit Diagnoses Not on filedocumented in this encounter Care Teams Project Management Relationship Specialty Start Date End Date Cristofer Hope MD PCP - General Internal Medicine 05/16/17 12/20/17 Victorino Martin MD PCP - General Internal Medicine 12/21/17 08/01/18 Sharon Vides PCP - General Internal Medicine 08/02/18 05/26/20 Brennan Burnett MD PCP - General Internal Medicine 05/27/20 12/07/21 Caitlyn Bowie MD [address] [place] [address] PCP - General Internal Medicine 12/08/21 Hayden Shah MD [address] [place] [address] Specialist Cardiovascular Disease 09/01/20 Pallavi Flood NP [address] [place] [address] Cardiology 09/01/20 documented as of this encounter
--- NOTE | 2024-08-30 18:20 | PC.NURSE ---
Per EMELIA Alvares PT/INR blood draw order to be cancelled.
[2024-08-30 18:46] VITALS: BP 130/95; PULSE 74; RESP 14; TEMP 36; O2SAT 99
[2024-08-30 19:21] VITALS: BP 130/95; PULSE 74; RESP 14; TEMP 36; O2SAT 99
== END 2024-08-30 19:23 | disposition home or self-care (01) ==
PROVIDERS: Physician Assistant Medical; Emergency Provider Internal Medicine; PCP Internal Medicine
DX: R51.9 Headache, unspecified (principal); R60.0 Localized edema; J44.9 Chronic obstructive pulmonary disease, unspecified; Z99.81 Dependence on supplemental oxygen; D64.9 Anemia, unspecified; I25.10 Atherosclerotic heart disease of native coronary artery without angina pectoris; R11.0 Nausea; Z79.01 Long term (current) use of anticoagulants; Z79.899 Other long term (current) drug therapy
CPT/HCPCS: 36415; 70450; 80053; 83735; 85025; 93970; 99283; 99284

== ENCOUNTER → 2024-08-30 12:16 | Outpatient (BNV) | payer MEDICARE, SELFPAY | PROVIDERS: PCP Internal Medicine; Visit Provider Radiology Diagnostic Radiology | DX: I83.811 Varicose veins of right lower extremity with pain (principal); I83.12 Varicose veins of left lower extremity with inflammation; G31.9 Degenerative disease of nervous system, unspecified | CPT/HCPCS: 70450 ==

== ENCOUNTER 2024-09-04 14:11 | Outpatient (REF) | payer MEDICARE, SELFPAY ==
--- NOTE | ~2024-09-04 | XR_ITS ---
EXAMINATION: XR CHEST 2 VIEWS HISTORY: J41.0 - Simple chronic bronchitis COMPARISON: Comparison is made to prior examinations dating back to 09/27/2022. FINDINGS: PA and lateral views of the chest are submitted. Again seen is scarring in the left midlung zone. An opacity at the left lung base is unchanged and likely represents pleural thickening and chronic scarring. There is no new focal airspace opacity. There is no pleural effusion, pneumothorax, or pulmonary vascular congestion. The heart is enlarged. A metallic clip again projects over the heart. There is scoliosis and degenerative disc disease of the spine. XR/XR chest 2V IMPRESSION: No acute cardiopulmonary abnormality. Electronically signed by: Cristian Rhodes MD 09/04/2024 03:19 PM [facility] PRESCOTT
--- NOTE | 2024-09-04 14:20 | ECG_ITS ---
Test Reason : COPD Blood Pressure : */* mmHG Vent. Rate : 86 BPM Atrial Rate : 86 BPM P-R Int : 170 ms QRS Dur : 134 ms QT Int : 392 ms P-R-T Axes : 70 -63 73 degrees QTcB Int : 469 ms Normal sinus rhythm Right bundle branch block Left anterior fascicular block Bifascicular block Abnormal ECG When compared with ECG of 16-Jan-2024 17:31, No significant changes seen Referred By: Henry Kelly Electronically Signed By: Luis Eduardo Cadet
--- OUTSIDE RECORDS SUMMARY | 2024-09-04 17:31 | XMS_ITS | Encounter Summary ---
Author Organization [facility] Address [address] [place] [address] Care Team Providers Care Sand Control Worker Name Role Phone Caitlyn Bowie MD Primary Care Provider [phone]- [phone] Encounter Details Date Type Department Care Team (Late st Contact Info) Description 12/28/2021 Scanned Document INTERFACE DEFAULT [address] [place] [address] System, Provider Not In Social History Tobacco [...] Care Team (Late st Contact Info) Description 09/30/2024 8:00 PM EDT Procedure visit [facility] [address] [place] [address] [address] [place] [address] 10/31/2024 1:00 PM EDT Telemedicine [facility] [address] [facility] [address] [place] [address] Ronald Mills MD [address] [facility] [address] [place] [address] documented as of this encounter Visit Diagnoses Not on filedocumented in this encounter Additional Health Concerns Infection Onset Date Last Indicated Resolved Time COVID-19 03/05/2022 03/05/2022 03/15/2022 7:18 PM EDT Assessment Noted Time PHQ-9 Depression Total Score: 2 11/07/19 19 2:06 PM EDT documented as of this encounter Care Teams Sand Control Worker Relationship Specialty Start Date End Date Caitlyn Bowie MD [address] [address] PCP - General Internal Medicine 05/06/21 documented as of this encounter
--- OUTSIDE RECORDS SUMMARY | 2024-09-04 17:31 | XMS_ITS | Encounter Summary ---
Author Organization [facility] Address [address] [place] [address] Care Team Providers Care Harp Regulator Name Role Phone Brennan Burnett MD Primary Care Provider [phone] Reason for Visit * Reason Onset Date [...] Contact Info) Description 08/08/2024 Telephone [facility] Speech Therapy [address] [address] Daphne Alarcon, LOFT WORKER APPRENTICE Memory Loss (Returned pt call from 08/07 [...] 09/09/2024 3:30 PM EST Treatment [facility] Speech Therapy [address] [phone] Daphne Alarcon, LOFT WORKER APPRENTICE documented as of this encounter Goals Goal Patient Goal Type Associated Problems Recent Progress Patient-Stated? Author LTG General No Daphne Alarcon, LOFT WORKER APPRENTICE Note: Pt will improve cognitive linguistic function to participate and communicate in iADLs mod I ST STGs General No Daphne Alarcon, LOFT WORKER APPRENTICE Note: Pt will participate with development of [...] on filedocumented in this encounter Care Teams Harp Regulator Relationship Specialty Start Date End Date Brennan Burnett MD [address] [place] [address] PCP - General 05/06/24 documented as of this encounter
--- OUTSIDE RECORDS SUMMARY | 2024-09-04 17:31 | XMS_ITS | Encounter Summary ---
Author Organization [facility] Address [address] [place] [address] Care Team Providers Care Bull Wheel Worker Name Role Phone Caitlyn Bowie MD Primary Care Provider [phone]- [phone] Encounter Details Date Type Department Care Team (Late st Contact Info) Description 07/08/2020 Scanned Document [facility] Health Information Management [address] [place] [address] External, Provider Social History Tobacco Use Types [...] Description 09/30/2024 8:00 PM EDT Procedure visit [facility] [address] [place] [address] [address] [place] [address] 10/31/2024 1:00 PM EDT Tele[facility]icine [facility] [address] [facility] [address] [place] [address] Ronald Mills MD [address] [facility] [address] [place] [address] documented as of this encounter Procedures Procedure [...] documented as of this encounter Care Teams Bull Wheel Worker Relationship Specialty Start Date End Date Caitlyn Bowie MD [address] [address] PCP - General Internal Medicine 05/06/21 documented as of this encounter
--- OUTSIDE RECORDS SUMMARY | 2024-09-04 17:31 | XMS_ITS | Encounter Summary ---
Author Organization [facility] Address [address] [place] [address] Care Team Providers Care Manager Surgery Name Role Phone Caitlyn Bowie MD Primary Care Provider [phone] Encounter Details Date Type Department Care Team (Late st Contact Info) Description 04/16/2018 Scanned Document [facility] Health Information Management [address] [place] [address] External, Provider Social History Tobacco Use Types [...] Department Care Team (Late Contact Info) Description 09/30/2024 8:00 PM EDT Procedure visit [facility] [address] [place] [address] [address] [place] [address] 10/31/2024 1:00 PM EDT Telemedicine [facility] at [facility] [address] [facility] [address] [place], [place] [phone] Ronald Mills MD 240 [facility] [address] [place] [address] documented as of this encounter Visit Diagnoses Not on filedocumented in this encounter Additional Health Concerns Infection Onset Date Last Indicated Resolved Time COVID-19 03/05/2022 03/05/2022 03/15/2022 7:18 PM EDT documented as of this encounter Care Teams Manager Surgery Relationship Specialty Start Date End Date Caitlyn Bowie MD 34[address] [facility] 1 [place] [address] PCP - General Internal Medicine 05/06/21 Henry Kelly MD Pulmonary Department 175 [facility] [place] [address] Physician Pulmonary Disease 09/06/17 06/22/20 documented as of this encounter
--- OUTSIDE RECORDS SUMMARY | 2024-09-04 17:31 | XMS_ITS | Encounter Summary ---
Author Organization [facility] Address [address] [place] [address] Care Team Providers Care Ship Propeller Finisher Name Role Phone Caitlyn Bowie MD Primary Care Provider [phone]- [phone] Encounter Details Date Type Department Care Team (Late st Contact Info) Description 04/03/2018 Scanned Document [facility] [address] [place] [address] Provider, historical . Social History Tobacco Use [...] Description 09/30/2024 8:00 PM EDT Procedure visit [facility] [address] [place] [address] [address] [place] [address] 10/31/2024 1:00 PM EDT Telemedicine Cancer Center at [address] [place], [place] [address] Ronald Mills MD 240 [facility] [address] [place] [address] documented as of this encounter [...] documented as of this encounter Care Teams Ship Propeller Finisher Relationship Specialty Start Date End Date Caitlyn Bowie MD 3400 [facility] 1 [place] [address] PCP - General Internal Medicine 05/06/21 Henry Kelly MD Pulmonary Department 175 [facility] [place] [address] Physician Pulmonary Disease 09/06/17 06/22/20 documented as of this encounter
--- OUTSIDE RECORDS SUMMARY | 2024-09-04 17:32 | XMS_ITS | Encounter Summary ---
Author Organization [facility] Address [address] [place] [address] Care Team Providers Care Measurement Superintendent Name Role Phone Caitlyn Bowie MD Primary Care Provider [phone]- [phone] Encounter Details Date Type Department Care Team (Late Contact Info) Description 11/18/2021 Scanned Document [facility] Health Information Management [address] [place] [address] External, Provider Social History Tobacco Use Types [...] Description 09/30/2024 8:00 PM EDT Procedure visit [facility] [address] [place] [address] [address] [place] [address] 10/31/2024 1:00 PM EDT Telemedicine [facility] at [facility] 240 [facility] [address] [place] [address] Ronald Mills MD 240 [facility] [address] [place] [address] documented as of this encounter Visit Diagnoses Not on filedocumented in this encounter Additional Health Concerns Infection Onset Date Last Indicated Resolved Time COVID-19 03/05/2022 03/05/2022 03/15/2022 7:18 PM EDT Assessment Noted Time PHQ-9 Depression Total Score: 2 11/07/19 19 2:06 PM EDT documented as of this encounter Care Teams Measurement Superintendent Relationship Specialty Start Date End Date Caitlyn Bowie MD [address] [address] PCP - General Internal Medicine 05/06/21 documented as of this encounter
--- OUTSIDE RECORDS SUMMARY | 2024-09-04 17:32 | XMS_ITS | Encounter Summary ---
Author Organization [facility] Address [address] [place] [address] Care Team Providers Care Cook Roast Name Role Phone Caitlyn Bowie MD Primary Care Provider [phone]- [phone] Encounter Details Date Type Department Care Team (Late st Contact Info) Description 12/16/2016 Scanned Document [facility] Health Information Management [address] [place] [address] External, Provider Social History Tobacco Use Types [...] Description 09/30/2024 8:00 PM EDT Procedure visit [facility] [address] [place] [address] [address] [place] [address] 10/31/2024 1:00 PM EDT Telemedicine [facility] at [facility] 240 [facility] Building [address] [place], [place] [address] Ronald Mills MD 240 [facility] [address] [place] [address] documented as of this encounter Procedures Procedure [...] documented as of this encounter Care Teams Cook Roast Relationship Specialty Start Date End Date Caitlyn Bowie MD 3400 [facility] 1 [place] [address] PCP - General Internal Medicine 05/06/21 Henry Kelly MD Pulmonary Department 175 [facility] [place] [address] Physician Pulmonary Disease 09/06/17 06/22/20 documented as of this encounter
--- OUTSIDE RECORDS SUMMARY | 2024-09-04 17:32 | XMS_ITS | Encounter Summary ---
Author Organization [facility] Address [address] [place] [address] Care Team Providers Care Tool Analyst Name Role Phone Caitlyn Bowie MD Primary Care Provider +1- [phone] Encounter Details Date Type Department Care Team (Late st Contact Info) Description 06/07/2021 Scanned Document [facility]Oncology Program at [address] [address] Norma Renee MD [address] [place] [address] [address] [place] [phone] Social History Tobacco Use Types Packs/Day Years [...] Description 09/30/2024 8:00 PM EDT Procedure visit [facility] [address] [place] [address] 10/31/2024 1:00 PM EDT Telemedicine Cancer Center at [address] [place], [place] [address] Ronald Mills MD 240 [facility] [address] [place] [address] documented as of this encounter Visit Diagnoses Not on filedocumented in this encounter Additional Health Concerns Infection Onset Date Last Indicated Resolved Time COVID-19 03/05/2022 03/05/2022 03/15/2022 7:18 PM EDT Assessment Noted Time PHQ-9 Depression Total Score: 2 11/07/19 19 2:06 PM EDT documented as of this encounter Care Teams Tool Analyst Relationship Specialty Start Date End Date Caitlyn Bowie MD [address] [address] PCP - General Internal Medicine 05/06/21 documented as of this encounter
--- OUTSIDE RECORDS SUMMARY | 2024-09-04 17:32 | XMS_ITS | Encounter Summary ---
Author Organization [facility] Address [address] [place] [address] Care Team Providers Care Vp Hr Diversity Name Role Phone Caitlyn Bowie MD Primary Care Provider +1- [phone] Reason for Visit * Reason Comments Triage Encounter Details Date Type Department Care Team (Late st Contact Info) Description 10/18/2021 Telephone [facility] at [address] - [address] [address] Ronald Mills MD [address] [place] [phone] Triage Social History Tobacco Use Types [...] Description 09/30/2024 8:00 PM EDT Procedure visit [facility] [address] [place] [address] [address] [place] [address] 10/31/2024 1:00 PM EDT Telemedicine [facility] 240 [facility] [address] [place], [place] [address] Ronald Mills MD 240 [facility] [address] [place] [address] documented as of this encounter Visit Diagnoses Not on filedocumented in this encounter Additional Health Concerns Infection Onset Date Last Indicated Resolved Time COVID-19 03/05/2022 03/05/2022 03/15/2022 7:18 PM EDT Assessment Noted Time PHQ-9 Depression Total Score: 2 11/07/19 19 2:06 PM EDT documented as of this encounter Care Teams Vp Hr Diversity Relationship Specialty Start Date End Date Caitlyn Bowie MD [address] [address] PCP - General Internal Medicine 05/06/21 documented as of this encounter
--- OUTSIDE RECORDS SUMMARY | 2024-09-04 17:32 | XMS_ITS | Encounter Summary ---
Author Organization [facility] and [facility] Address [address] [place] [address] Care Team Providers Care Student Records Coordinator Name Role Phone Caitlyn Bowie MD Primary Care Provider +1- [phone] Encounter Details Date Type Department Care Team (Late st Contact Info) Description 06/08/2021 Scanned Document INTERFACE DEFAULT [address] [place] [address] System, Provider Not In Social History Tobacco [...] Description 09/30/2024 8:00 PM EDT Procedure visit [facility] [address] [place] [address] [address] [place] [address] 10/31/2024 1:00 PM EDT Telemedicine Cancer Center at [facility] 240 [facility] [address] [place] [address] Ronald Mills MD 240 [facility] [address]1 [place] [address] documented as of this encounter Procedures Procedure [...] documented as of this encounter Care Teams Student Records Coordinator Relationship Specialty Start Date End Date Caitlyn Bowie MD [address] [address] PCP - General Internal Medicine 05/06/21 documented as of this encounter
--- OUTSIDE RECORDS SUMMARY | 2024-09-04 17:32 | XMS_ITS | Encounter Summary ---
Author Organization [facility] and [facility] Address [address] [place] [address] Care Team Providers Care White Metal Corrosion Proofer Name Role Phone Caitlyn Bowie MD Primary Care Provider +1- [phone] Encounter Details Date Type Department Care Team (Late st Contact Info) Description 05/19/2020 Scanned Document Cancer Center at [address] [address] External, Provider Social History Tobacco Use Types [...] Description 09/30/2024 8:00 PM EDT Procedure visit [facility] [address] [place] [address] [address] [place] [address] 10/31/2024 1:00 PM EDT Telemedicine Cancer Center at [address] [place] [address] Ronald Mills MD [address] [address] documented as of this encounter [...] as of this encounter Care Teams White Metal Corrosion Proofer Relationship Specialty Start Date End Date Caitlyn Bowie MD 3400 [facility] [address] 1 [place] [address] PCP - General Internal Medicine 05/06/21 Henry Kelly MD Pulmonary Department 175 [facility], [address] [place] [address] Physician Pulmonary Disease 09/06/17 06/22/20 documented as of this encounter
--- OUTSIDE RECORDS SUMMARY | 2024-09-04 17:32 | XMS_ITS | Encounter Summary ---
Author Organization [facility] and [facility] Address 20 [place] [address] Care Team Providers Care Ramp Service Man Name Role Phone Caitlyn Bowie MD Primary Care Provider +1- [phone] Encounter Details Date Type Department Care Team (Late st Contact Info) Description 05/14/2020 Documentation Hematology Program at [address] [address] Taya Nuno RN Social History Tobacco Use [...] Description 09/30/2024 8:00 PM EDT Procedure visit [facility] [address] [place] [address] [address] [place] [address] 10/31/2024 1:00 PM EDT Telemedicine Cancer Center at [address] [place] [address] Ronald Mills MD [address] [place] [address] documented as of this encounter Visit Diagnoses Not on filedocumented in this encounter Additional Health Concerns Infection Onset Date Last Indicated Resolved Time COVID-19 03/05/2022 03/05/2022 03/15/2022 7:18 PM EDT Assessment Noted Time PHQ-9 Depression Total Score: 2 11/07/19 19 2:06 PM EDT documented as of this encounter Care Teams Ramp Service Man Relationship Specialty Start Date End Date Caitlyn Bowie MD 3400 [facility] 1 [place] [address] PCP - General Internal Medicine 05/06/21 Henry Kelly MD Pulmonary Department [address] [place] [address], [address] [place] [address] Physician Pulmonary Disease 09/06/17 06/22/20 documented as of this encounter
--- OUTSIDE RECORDS SUMMARY | 2024-09-04 17:32 | XMS_ITS | Patient Health Record ---
Author Organization [facility] Address [address] [place] [address] Care Team Providers Care Linoleum Tile Floor Layer Name Role Phone AzebShruti esquivelberly Primary Care Provider Cristian Fountain Unavailable [phone] ALLERGIES Allergen (clinical drug ingredient) Drug/Non Drug Allergy documented on EMR Reaction Allergy Type Onset Date Status Levaquin Unknown Drug Allergy Active Gastrografin Unknown [...] vancomycin Vancomycin Unknown Drug Allergy Activ e gentamicin gentomycin (uncoded) Unknown Allergy Active Penicillin Unknown Drug Allergy Active erythromycin Erythromycin Unknown Drug Allergy A ctive voltarin (uncoded) Unknown Allergy A ctive Substance with sulfonamide structure and antibacterial mechanism of action (substance) Sulfa Antibiotics Unknown Drug Allergy Active zithromycin (uncoded) Unknown Allergy Active Bee Sting Unknown Allergy Active ivp dye (uncoded) Unknown Allergy Ac tive barium sulfate Barium Sulfate Unknown Drug Allergy Active shrimp allergenic extract Shrimp (Diagnostic) Unknown Drug Allergy Active Voltaren Unknown Drug Allergy Active REASON FOR REFERRAL No Information [...] W/U Status Risk SNOMED Code Notes Problem Diverticulitis (K57.92) Active confirmed Diverticulitis (264817376) Problem Irritable bowel syndrome with constipation (K58.9) Active confirmed Irritable bowel syndrome characterized by constipation (785489337) Problem GERD (gastroesophageal reflux disease) (K21.9) Active confirmed Gastroesophagea l reflux disease (068363092) PLAN OF TREATMENT No Information Insurance Providers Payer Name Payer Address Payer Phone Subscriber Number Group Number Insured Name Patient Relationship to Insured Coverage Start Date Coverage End Date MEDICARE OF [place] [address] [place] [address] [id number] SHIRLEY CINDA Self - patient is the insured [employer] ATT[employer] CLAIMS [address] [place] [address] [id number] DANIEL WATSONE Self - patient is the insured MEDICAL (GENERAL) HISTORY Medical History History ICD Code OH-04/2021-sees Dr. 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 Hogan at [facility]-has had EGD's with Dr. Gomes Pneumomias Hypothyroidism Surgical History Surgery Date(Month/Year) Tonsils and adenoids BOLA Lung cancer-Left lower lobectomy at [facility], XRT, Chemo 2008
--- OUTSIDE RECORDS SUMMARY | 2024-09-04 17:32 | XMS_ITS | Encounter Summary ---
Author Organization [facility] and [facility] Address [address] [place] [address] Care Team Providers Care Sales And Retail Management Recruiter Name Role Phone Caitlyn Bowie MD Primary Care Provider +1- [phone] Reason for Visit * Reason Comments Advice Only Encounter Details Date Type Department Care Team ([facility] st Contact Info) Description 06/01/2021 Telephone [facility] at [address] [id number] Ronald Mills MD [address] [place] [address] Advice Only Social History Tobacco Use [...] added that she's called before and sent Speek messages but hasn't received a reply,[phone]. documented in this encounter Plan of Treatment Upcoming Encounters Date Type Department Care Team (Late st Contact Info) Description 09/30/2024 8:00 PM EDT Procedure visit [facility] [address] [place] [address] [address] [place] [address] 10/31/2024 1:00 PM EDT Telemedicine Cancer Center at [address] [place], [place] [address] Ronald Mills MD 240 [facility] A1 [place] [address] documented as of this encounter Visit Diagnoses Not on filedocumented in this encounter Additional Health Concerns Infection Onset Date Last Indicated Resolved Time COVID-19 03/05/2022 03/05/2022 03/15/2022 7:18 PM EDT Assessment Noted Time PHQ-9 Depression Total Score: 2 11/07/19 19 2:06 PM EDT documented as of this encounter Care Teams Sales And Retail Management Recruiter Relationship Specialty Start Date End Date Caitlyn Bowie MD [address] [address] PCP - General Internal Medicine 05/06/21 documented as of this encounter
--- OUTSIDE RECORDS SUMMARY | 2024-09-04 17:32 | XMS_ITS | Encounter Summary ---
Author Organization [facility] and [facility] Address [address] [place] [address] Care Team Providers Care C++ Quant Developer Name Role Phone Caitlyn Bowie MD Primary Care Provider +1- [phone] Encounter Details Date Type Department Care Team (Late st Contact Info) Description 08/07/2018 Scanned Document [facility] Health Information Management [address] [place] [address] External, Provider Social History Tobacco Use Types [...] Description 09/30/2024 8:00 PM EDT Procedure visit [facility] [address] [place] [address] [address] [place] [address] 10/31/2024 1:00 PM EDT Telemedicine Cancer Center at [facility] 240 [facility] [address] [place], [place] [phone] Ronald Mills MD 240 [facility] A1 [place] [address] documented as of this encounter Visit Diagnoses Not on filedocumented in this encounter Additional Health Concerns Infection Onset Date Last Indicated Resolved Time COVID-19 03/05/2022 03/05/2022 03/15/2022 7:18 PM EDT documented as of this encounter Care Teams C++ Quant Developer Relationship Specialty Start Date End Date Caitlyn Bowie MD 3400 [facility] 1 [place] [address] PCP - General Internal Medicine 05/06/21 Henry Kelly MD Pulmonary Department 175 [facility], [address] [place] [address] Physician Pulmonary Disease 09/06/17 06/22/20 documented as of this encounter
--- OUTSIDE RECORDS SUMMARY | 2024-09-04 17:32 | XMS_ITS | Encounter Summary ---
Author Organization [facility] and [facility] Address [address] [place] [address] Care Team Providers Care German Professor Name Role Phone Caitlyn Bowie MD Primary Care Provider +1- [phone] Encounter Details Date Type Department Care Team (Late Contact Info) Description 09/18/2020 Scanned Document [facility] Health Information Management [address] [place] [address] External, Provider Social History Tobacco Use Types [...] Description 09/30/2024 8:00 PM EDT Procedure visit [facility] [address] [place] [address] [address] [place] [address] 10/31/2024 1:00 PM EDT Telemedicine Cancer Center at [address] [place] [address] Ronald Mills MD 240 [facility] A1 [place] [address] documented as of this encounter [...] documented as of this encounter Care Teams German Professor Relationship Specialty Start Date End Date Caitlyn Bowie MD [address] [address] PCP - General Internal Medicine 05/06/21 documented as of this encounter
--- OUTSIDE RECORDS SUMMARY | 2024-09-04 17:32 | XMS_ITS | Encounter Summary ---
Author Organization [facility] and [facility] Address 20 [place] [address] Care Team Providers Care Stage Electrician Name Role Phone Caitlyn Bowie MD Primary Care Provider +1- [phone] Encounter Details Date Type Department Care Team (Late st Contact Info) Description 11/19/2021 Scanned Document Cardiovascular Medicine at [address] [place] [address] Norma Renee MD [address] [place] [phone] Social History Tobacco Use Types Packs/Day Years [...] Description 09/30/2024 8:00 PM EDT Procedure visit [facility] [address] [place] [address] [address] [place] [address] 10/31/2024 1:00 PM EDT Telemedicine Cancer Center at [address] [place], [place] [address] Ronald Mills MD 240 [facility] Max [address]1 [place] [address] documented as of this encounter Visit Diagnoses Not on filedocumented in this encounter Additional Health Concerns Infection Onset Date Last Indicated Resolved Time COVID-19 03/05/2022 03/05/2022 03/15/2022 7:18 PM EDT Assessment Noted Time PHQ-9 Depression Total Score: 2 11/07/19 19 2:06 PM EDT documented as of this encounter Care Teams Stage Electrician Relationship Specialty Start Date End Date Caitlyn Bowie MD [address] [address] PCP - General Internal Medicine 05/06/21 documented as of this encounter
--- OUTSIDE RECORDS SUMMARY | 2024-09-04 17:32 | XMS_ITS | Encounter Summary ---
Author Organization [facility] and [facility] Address 20 [place] [address] Care Team Providers Care Journeyman Pipe Fitter Name Role Phone Caitlyn Bowie MD Primary Care Provider +1- [phone] Encounter Details Date Type Department Care Team (Late st Contact Info) Description 09/15/2020 Scanned Document Cancer Center at [address] [address] External, Provider Social History Tobacco Use Types [...] Description 09/30/2024 8:00 PM EDT Procedure visit [facility] [address] [place] [address] [place] [address] 10/31/2024 1:00 PM EDT Telemedicine Cancer Center at [address] [place], [place] [address] Ronald Mills MD [address] [address] documented as of this encounter [...] documented as of this encounter Care Teams Journeyman Pipe Fitter Relationship Specialty Start Date End Date Caitlyn Bowie MD [address] [address] PCP - General Internal Medicine 05/06/21 documented as of this encounter
--- OUTSIDE RECORDS SUMMARY | 2024-09-04 17:32 | XMS_ITS | Encounter Summary ---
Author Organization [facility] and [facility] Address [address] [place] [address] Care Team Providers Care Embalmer/Funeral Director Name Role Phone Caitlyn Bowie MD Primary Care Provider +1- [phone] Encounter Details Date Type Department Care Team (Late st Contact Info) Description 07/26/2018 Scanned Document [facility] Health Information Management [address] [place] [address] External, Provider Social History Tobacco Use Types [...] Description 09/30/2024 8:00 PM EDT Procedure visit [facility] [address] [place] [address] [address] [place] [address] 10/31/2024 1:00 PM EDT Telemedicine Cancer Center at [facility] 240 [facility] Building [address] [place], [place] [phone] Ronald Mills MD 240 [facility] A1 [place] [address] documented as of this encounter [...] documented as of this encounter Care Teams Embalmer/Funeral Director Relationship Specialty Start Date End Date Caitlyn Bowie MD 3400 [facility] 1 [place] [address] PCP - General Internal Medicine 05/06/21 Henry Kelly MD Pulmonary Department 175 [facility], [address] [place] [address] Physician Pulmonary Disease 09/06/17 06/22/20 documented as of this encounter
--- OUTSIDE RECORDS SUMMARY | 2024-09-04 17:32 | XMS_ITS | Encounter Summary ---
Author Organization [facility] and [facility] Address [address] [place] [address] Care Team Providers Care Mail Officer Name Role Phone Caitlyn Bowie MD Primary Care Provider +1- [phone] Encounter Details Date Type Department Care Team (Late st Contact Info) Description 10/08/2021 Scanned Document INTERFACE DEFAULT [address] [place] [address] System, Provider Not In Social History Tobacco [...] Description 09/30/2024 8:00 PM EDT Procedure visit [facility] [address] [place] [address] [address] [place] [address] 10/31/2024 1:00 PM EDT Telemedicine Cancer Center at [facility] 240 [facility] [address] [place] [address] Ronald Mills MD 240 [facility] A1 [place] [address] documented as of this encounter Procedures Procedure [...] documented as of this encounter Care Teams Mail Officer Relationship Specialty Start Date End Date Caitlyn Bowie MD [facility] [address] [address] PCP - General Internal Medicine 05/06/21 documented as of this encounter
--- OUTSIDE RECORDS SUMMARY | 2024-09-04 17:32 | XMS_ITS | Encounter Summary ---
Author Organization [facility] and [facility] Address 20 [place] [address] Care Team Providers Care Association Executive Name Role Phone Caitlyn Bowie MD Primary Care Provider +1- [phone] Encounter Details Date Type Department Care Team (Late st Contact Info) Description 05/17/2021 Scanned Document Cancer Center at [address] [address] External, Provider Social History Tobacco Use Types [...] Description 09/30/2024 8:00 PM EDT Procedure visit [facility] [address] [place] [address] [place] [address] 10/31/2024 1:00 PM EDT Telemedicine Cancer Center at [address] [place], [place] [address] Ronald Mills MD [address] [address] documented as of this encounter [...] documented as of this encounter Care Teams Association Executive Relationship Specialty Start Date End Date Caitlyn Bowie MD [address] [address] PCP - General Internal Medicine 05/06/21 documented as of this encounter
--- OUTSIDE RECORDS SUMMARY | 2024-09-04 17:32 | XMS_ITS | Encounter Summary ---
Author Organization [facility] and [facility] Address [address] [place] [address] Care Team Providers Care Culinary Art Teacher Name Role Phone Caitlyn Bowie MD Primary Care Provider +1- [phone] Encounter Details Date Type Department Care Team (Late st Contact Info) Description 06/26/2018 Scanned Document [facility] Health Information Management [address] [place] [address] External, Provider Social History Tobacco Use Types [...] Description 09/30/2024 8:00 PM EDT Procedure visit [facility] [address] [place] [address] [address] [place] [address] 10/31/2024 1:00 PM EDT Telemedicine Cancer Center at [facility] 240 [facility] Building [address] [place], [place] [phone] Ronald Mills MD 240 [facility] A1 [place] [address] documented as of this encounter Visit Diagnoses Not on filedocumented in this encounter Additional Health Concerns Infection Onset Date Last Indicated Resolved Time COVID-19 03/05/2022 03/05/2022 03/15/2022 7:18 PM EDT documented as of this encounter Care Teams Culinary Art Teacher Relationship Specialty Start Date End Date Caitlyn Bowie MD 3400 [facility] 1 [place] [address] PCP - General Internal Medicine 05/06/21 Henry Kelly MD Pulmonary Department 175 [facility], [address] [place] [address] Physician Pulmonary Disease 09/06/17 06/22/20 documented as of this encounter
--- OUTSIDE RECORDS SUMMARY | 2024-09-04 17:32 | XMS_ITS | Encounter Summary ---
Author Organization [facility] and [facility] Address [address] [place] [address] Care Team Providers Care Sales Support Manager Name Role Phone Caitlyn Bowie MD Primary Care Provider +1- [phone] Encounter Details Date Type Department Care Team (Late st Contact Info) Description 04/29/2021 Scanned Document INTERFACE DEFAULT [address] [place] [address] System, Provider Not In Social History Tobacco [...] Description 09/30/2024 8:00 PM EDT Procedure visit [facility] [address] [place] [address] [address] [place] [address] 10/31/2024 1:00 PM EDT Telemedicine Cancer [facility] at [facility] 240 [facility] [address] [place] [address] Ronald Mills MD 240 [facility] A1 [place] [address] documented as of this encounter Procedures Procedure [...] as of this encounter Care Teams Sales Support Manager Relationship Specialty Start Date End Date Caitlyn Bowie MD [address] [address] PCP - General Internal Medicine 05/06/21 documented as of this encounter
--- OUTSIDE RECORDS SUMMARY | 2024-09-04 17:32 | XMS_ITS | Encounter Summary ---
Author Organization [facility] and [facility] Address 20 [place] [address] Care Team Providers Care Automotive Collision Estimator Name Role Phone Caitlyn Bowie MD Primary Care Provider +1- [phone] Encounter Details Date Type Department Care Team (Late st Contact Info) Description 06/07/2021 Scanned Document Cancer Center at [address] [address] External, Provider Social History Tobacco Use Types [...] Description 09/30/2024 8:00 PM EDT Procedure visit [facility] [address] [place] [address] [place] [address] 10/31/2024 1:00 PM EDT Telemedicine Cancer Center at [address] [place], [place] [address] Ronald Mills MD [address] [address] documented as of this encounter Visit Diagnoses Not on filedocumented in this encounter Additional Health Concerns Infection Onset Date Last Indicated Resolved Time COVID-19 03/05/2022 03/05/2022 03/15/2022 7:18 PM EDT Assessment Noted Time PHQ-9 Depression Total Score: 2 11/07/19 19 2:06 PM EDT documented as of this encounter Care Teams Automotive Collision Estimator Relationship Specialty Start Date End Date Caitlyn Bowie MD [address] [address] PCP - General Internal Medicine 05/06/21 documented as of this encounter
--- OUTSIDE RECORDS SUMMARY | 2024-09-04 17:32 | XMS_ITS | Encounter Summary ---
Author Organization [facility] and [facility] Address [address] [place] [address] Care Team Providers Care Duplex Trimmer Name Role Phone Caitlyn Bowie MD Primary Care Provider +1- [phone] Encounter Details Date Type Department Care Team (Late st Contact Info) Description 12/16/2016 Scanned Document [facility] Health Information Management [address] [place] [address] External, Provider Social History Tobacco Use Types [...] Description 09/30/2024 8:00 PM EDT Procedure visit [facility] [address] [place] [address] [address] [place] [address] 10/31/2024 1:00 PM EDT Telemedicine [facility] at [facility] 240 [facility] Building [address] [place], [place] [address] Ronald Mills MD 240 [facility] [address]1 [place] [address] documented as of this encounter Procedures Procedure [...] documented as of this encounter Care Teams Duplex Trimmer Relationship Specialty Start Date End Date Caitlyn Bowie MD 3400 [facility] 1 [place] [address] PCP - General Internal Medicine 05/06/21 Henry Kelly MD Pulmonary Department 175 [facility], [address] [place] [address] Physician Pulmonary Disease 09/06/17 06/22/20 documented as of this encounter
--- OUTSIDE RECORDS SUMMARY | 2024-09-04 17:32 | XMS_ITS | Encounter Summary ---
Author Organization [facility] and [facility] Address [address] [place] [address] Care Team Providers Care Cattle Sticker Name Role Phone Caitlyn Bowie MD Primary Care Provider +1- [phone] Encounter Details Date Type Department Care Team (Late st Contact Info) Description 03/14/2018 Scanned Document [facility] Health Information Management [address] [place] [address] External, Provider Social History Tobacco Use Types [...] Description 09/30/2024 8:00 PM EDT Procedure visit [facility] [address] [place] [address] [address] [place] [address] 10/31/2024 1:00 PM EDT Telemedicine [facility] at [facility] [address] [facility] Building [address] [place], [place] [phone] Ronald Mills MD 240 [facility] A1 [place] [address] documented as of this encounter [...] documented as of this encounter Care Teams Cattle Sticker Relationship Specialty Start Date End Date Caitlyn Bowie MD 3400 [facility] 1 [place] [address] PCP - General Internal Medicine 05/06/21 Henry Kelly MD Pulmonary Department 175 [facility], [address] [place] [address] Physician Pulmonary Disease 09/06/17 06/22/20 documented as of this encounter
--- OUTSIDE RECORDS SUMMARY | 2024-09-04 17:32 | XMS_ITS | Encounter Summary ---
Author Organization [facility] and [facility] Address [address] [place] [address] Care Team Providers Care High School Director Name Role Phone Caitlyn Bowie MD Primary Care Provider +1- [phone] Encounter Details Date Type Department Care Team (Late st Contact Info) Description 06/07/2021 Scanned Document [facility] Program at [address] [address] Norma Renee MD [address] [place] [address] 2 [place] [phone] Social History Tobacco Use Types Packs/Day Years [...] Description 09/30/2024 8:00 PM EDT Procedure visit [facility] [address] [place] [phone] 10/31/2024 1:00 PM EDT Tele[facility]icine Cancer Center at [address] [place], [place] [address] Ronald Mills MD 240 [facility] Max A1 [place] [address] documented as of this encounter Visit Diagnoses Not on filedocumented in this encounter Additional Health Concerns Infection Onset Date Last Indicated Resolved Time COVID-19 03/05/2022 03/05/2022 03/15/2022 7:18 PM EDT Assessment Noted Time PHQ-9 Depression Total Score: 2 11/07/19 19 2:06 PM EDT documented as of this encounter Care Teams High School Director Relationship Specialty Start Date End Date Caitlyn Bowie MD [address] [address] PCP - General Internal Medicine 05/06/21 documented as of this encounter
--- OUTSIDE RECORDS SUMMARY | 2024-09-04 17:32 | XMS_ITS | Encounter Summary ---
Author Organization [facility] and [facility] Address [address] [place] [address] Care Team Providers Care Solid State Tester Name Role Phone Caitlyn Bowie MD Primary Care Provider +1- [phone] Encounter Details Date Type Department Care Team (Late st Contact Info) Description 12/16/2016 Scanned Document [facility] Health Information Management [address] [place] [address] External, Provider Social History Tobacco Use Types [...] Description 09/30/2024 8:00 PM EDT Procedure visit [facility] [address] [place] [address] [address] [place] [address] 10/31/2024 1:00 PM EDT Telemedicine [facility] at [facility] 240 [facility] Building [address] [place], [place] [address] Ronald Mills MD 240 [facility] A1 [place] [address] documented as of this encounter Procedures Procedure [...] documented as of this encounter Care Teams Solid State Tester Relationship Specialty Start Date End Date Caitlyn Bowie MD 3400 [facility] Max 1 [place] [address] PCP - General Internal Medicine 05/06/21 Henry Kelly MD Pulmonary Department 175 [facility], [address] [place] [address] Physician Pulmonary Disease 09/06/17 06/22/20 documented as of this encounter
--- OUTSIDE RECORDS SUMMARY | 2024-09-04 17:32 | XMS_ITS | Encounter Summary ---
Author Organization [facility] Address [address] [place] [phone] Care Team Providers Care Driller And Broacher Name Role Phone Caitlyn Bowie MD Primary Care Provider +1- [phone] Encounter Details Date Type Department Care Team (Late st Contact Info) Description 02/20/2017 Scanned Document [facility] Health Information Management [address] [place] [address] External, Provider Social History Tobacco Use Types [...] Description 09/30/2024 8:00 PM EDT Procedure visit [facility] [address] [place] [address] [address] [place] [address] 10/31/2024 1:00 PM EDT [facility]med[facility] 240 [facility] Building [address] [place], [place] [address] Ronald Mills MD 240 [facility] A1 [place] [address] documented as of this encounter Procedures Procedure [...] documented as of this encounter Care Teams Driller And Broacher Relationship Specialty Start Date End Date Caitlyn Bowie MD 3400 [facility] 1 [place] [address] PCP - General Internal Medicine 05/06/21 Henry Kelly MD Pulmonary Department 175 [facility], [address] [place] [address] Physician Pulmonary Disease 09/06/17 06/22/20 documented as of this encounter
--- OUTSIDE RECORDS SUMMARY | 2024-09-04 17:32 | XMS_ITS | Encounter Summary ---
Author Organization [facility] and [facility] Address [address] [place] [address] Care Team Providers Care Estate Planning Attorney Name Role Phone Caitlyn Bowie MD Primary Care Provider +1- [phone] Encounter Details Date Type Department Care Team (Late st Contact Info) Description 12/19/2016 Scanned Document [facility] Health Information Management [address] [place] [address] External, Provider Social History Tobacco Use Types [...] Description 09/30/2024 8:00 PM EDT Procedure visit [facility] [address] [place] [address] [address] [place] [address] 10/31/2024 1:00 PM EDT Telemedicine Cancer [facility] at [facility] 240 [facility] Building [address] [place], [place] [address] Ronald Mills MD 240 [facility] A1 [place] [address] documented as of this encounter Procedures Procedure [...] documented as of this encounter Care Teams Estate Planning Attorney Relationship Specialty Start Date End Date Caitlyn Bowie MD [address] [facility] Max 1 [place] [address] PCP - General Internal Medicine 05/06/21 Henry Kelly MD Pulmonary Department 175 [facility], [address] [place] [address] Physician Pulmonary Disease 09/06/17 06/22/20 documented as of this encounter
--- OUTSIDE RECORDS SUMMARY | 2024-09-04 17:32 | XMS_ITS | Encounter Summary ---
Author Organization [facility] Address [address] [place] [address] Care Team Providers Care Vice President Network Name Role Phone Caitlyn Bowie MD Primary Care Provider +1- [phone] Encounter Details Date Type Department Care Team (Late st Contact Info) Description 05/27/2021 Telephone [facility] at [address] [address] Ronald Mills MD [address] [place] [address] Social History Tobacco Use Types Packs/Day [...] Description 09/30/2024 8:00 PM EDT Procedure visit [facility] [address] [place] [address] [address] [place] [address] 10/31/2024 1:00 PM EDT Telemedicine Cancer Center at [facility] 240 [facility] [address] [place], [place] [address] Ronald Mills MD 240 [facility] A1 [place] [address] documented as of this encounter Visit Diagnoses Not on filedocumented in this encounter Additional Health Concerns Infection Onset Date Last Indicated Resolved Time COVID-19 03/05/2022 03/05/2022 03/15/2022 7:18 PM EDT Assessment Noted Time PHQ-9 Depression Total Score: 2 11/07/19 19 2:06 PM EDT documented as of this encounter Care Teams Vice President Network Relationship Specialty Start Date End Date Caitlyn Bowie MD [address] [address] PCP - General Internal Medicine 05/06/21 documented as of this encounter
--- OUTSIDE RECORDS SUMMARY | 2024-09-04 17:32 | XMS_ITS | Encounter Summary ---
Author Organization [facility] and [facility] Address [address] [place] [address] Care Team Providers Care Automation Machine Operator Name Role Phone Caitlyn Bowie MD Primary Care Provider +1- [phone] Encounter Details Date Type Department Care Team (Late st Contact Info) Description 09/16/2020 Scanned Document [facility] Health Information Management [address] [place] [address] External, Provider Social History Tobacco Use Types [...] Description 09/30/2024 8:00 PM EDT Procedure visit [facility] [address] [place] [address] [address] [place] [address] 10/31/2024 1:00 PM EDT Telemedicine Cancer Center at [address] [place] [address] Ronald Mills MD 240 [facility] A1 [place] [address] documented as of this encounter [...] documented as of this encounter Care Teams Automation Machine Operator Relationship Specialty Start Date End Date Caitlyn Bowie MD [address] [address] PCP - General Internal Medicine 05/06/21 documented as of this encounter
--- OUTSIDE RECORDS SUMMARY | 2024-09-04 17:32 | XMS_ITS | Encounter Summary ---
Author Organization [facility] Address [address] [place] [address] Care Team Providers Care Cobol Mainframe Developer Name Role Phone Caitlyn Bowie MD Primary Care Provider +1- [phone] Encounter Details Date Type Department Care Team (Late st Contact Info) Description 12/16/2016 Scanned Document [facility] Health Information Management [address] [place] [address] External, Provider Social History Tobacco Use Types [...] Description 09/30/2024 8:00 PM EDT Procedure visit [facility] [address] [place] [address] [address] [place] [address] 10/31/2024 1:00 PM EDT Telemedicine Cancer Center at [facility] 240 [facility] Building [address] [place], [place] [address] Ronald Mills MD 240 [facility] A1 [place] [address] documented as of this encounter Procedures Procedure [...] documented as of this encounter Care Teams Cobol Mainframe Developer Relationship Specialty Start Date End Date Caitlyn Bowie MD 3400 [facility] 1 [place] [address] PCP - General Internal Medicine 05/06/21 Henry Kelly MD Pulmonary Department 175 [facility], [address] [place] [address] Physician Pulmonary Disease 09/06/17 06/22/20 documented as of this encounter
--- OUTSIDE RECORDS SUMMARY | 2024-09-04 17:32 | XMS_ITS | Encounter Summary ---
Author Organization [facility] Address [address] [place] [address] Care Team Providers Care Pelota Maker Name Role Phone Caitlyn Bowie MD Primary Care Provider +1- [phone] Encounter Details Date Type Department Care Team (Late st Contact Info) Description 07/28/2018 Scanned Document [facility] Health Information Management [address] [place] [address] External, Provider Social History Tobacco Use Types [...] Description 09/30/2024 8:00 PM EDT Procedure visit [facility] [address] [place] [address] [address] [place] [address] 10/31/2024 1:00 PM EDT Telemedicine Cancer Center at [facility] 240 [facility] Building [address] [place], [place] [address] Ronald Mills MD 240 [facility] A1 [place] [address] documented as of this encounter [...] documented as of this encounter Care Teams Pelota Maker Relationship Specialty Start Date End Date Caitlyn Bowie MD 3400 [facility] 1 [place] [address] PCP - General Internal Medicine 05/06/21 Henry Kelly MD Pulmonary Department 175 [facility], [address] [place] [address] Physician Pulmonary Disease 09/06/17 06/22/20 documented as of this encounter
--- OUTSIDE RECORDS SUMMARY | 2024-09-04 17:32 | XMS_ITS | Encounter Summary ---
Author Organization [facility] and [facility] Address [address] [place] [address] Care Team Providers Care Screw Machine Setter Name Role Phone Caitlyn Bowie MD Primary Care Provider +1- [phone] Encounter Details Date Type Department Care Team (Late Contact Info) Description 09/09/2020 Scanned Document [facility] Health Information Management [address] [place] [address] External, Provider Social History Tobacco Use Types [...] Description 09/30/2024 8:00 PM EDT Procedure visit [facility] [address] [place] [address] [address] [place] [address] 10/31/2024 1:00 PM EDT Telemedicine Cancer Center at [address] [place] [address] Ronald Mills MD 240 [facility] A1 [place] [address] documented as of this encounter [...] documented as of this encounter Care Teams Screw Machine Setter Relationship Specialty Start Date End Date Caitlyn Bowie MD [address] [address] PCP - General Internal Medicine 05/06/21 documented as of this encounter
--- OUTSIDE RECORDS SUMMARY | 2024-09-04 17:32 | XMS_ITS | Encounter Summary ---
Author Organization [facility] and [facility] Address [address] [place] [address] Care Team Providers Care Mule Rider Name Role Phone Caitlyn Bowie MD Primary Care Provider +1- [phone] Reason for Visit * Reason Comments FYI Encounter Details Date Type Department Care Team (Late st Contact Info) Description 05/24/2021 Telephone [facility] at [address] [place] [address] [address] [place], [place] [phone] Solo Henry MD [address] [place] [phone] FYI Social History Tobacco Use Types [...] Description 09/30/2024 8:00 PM EDT Procedure visit [facility] [address] [place] [address] [address] [place] [address] 10/31/2024 1:00 PM EDT Telemedicine Cancer Center at [facility] 240 [facility] [address] [place] [address] Ronald Mills MD 240 [facility] Max A1 [place] [address] documented as of this encounter Visit Diagnoses Not on filedocumented in this encounter Additional Health Concerns Infection Onset Date Last Indicated Resolved Time COVID-19 03/05/2022 03/05/2022 03/15/2022 7:18 PM EDT Assessment Noted Time PHQ-9 Depression Total Score: 2 11/07/19 19 2:06 PM EDT documented as of this encounter Care Teams Mule Rider Relationship Specialty Start Date End Date Caitlyn Bowie MD 3400 [facility] 1 [place] [address] PCP - General Internal Medicine 05/06/21 documented as of this encounter
--- OUTSIDE RECORDS SUMMARY | 2024-09-04 17:32 | XMS_ITS | Encounter Summary ---
Author Organization [facility] and [facility] Address [address] [place] [address] Care Team Providers Care Veterans Service Officer Name Role Phone Caitlyn Bowie MD Primary Care Provider +1- [phone] Encounter Details Date Type Department Care Team (Late Contact Info) Description 09/17/2020 Scanned Document [facility] Health Information Management [address] [place] [address] External, Provider Social History Tobacco Use Types [...] Description 09/30/2024 8:00 PM EDT Procedure visit [facility] [address] [place] [address] [address] [place] [address] 10/31/2024 1:00 PM EDT Telemedicine Cancer Center at [address] [place] [address] Ronald Mills MD 240 [facility] A1 [place] [address] documented as of this encounter [...] documented as of this encounter Care Teams Veterans Service Officer Relationship Specialty Start Date End Date Caitlyn Bowie MD [address] [address] PCP - General Internal Medicine 05/06/21 documented as of this encounter
--- OUTSIDE RECORDS SUMMARY | 2024-09-04 17:32 | XMS_ITS | Encounter Summary ---
Author Organization [facility] and [facility] Address [address] [place] [address] Care Team Providers Care Greige Goods Examiner Name Role Phone Caitlyn Bowie MD Primary Care Provider +1- [phone] Encounter Details Date Type Department Care Team (Late Contact Info) Description 09/15/2020 Scanned Document [facility] Health Information Management [address] [place] [address] External, Provider Social History Tobacco Use Types [...] Description 09/30/2024 8:00 PM EDT Procedure visit [facility] [address] [place] [address] [address] [place] [address] 10/31/2024 1:00 PM EDT Telemedicine Cancer Center at [address] [place] [address] Ronald Mills MD 240 [facility] A1 [place] [address] documented as of this encounter [...] documented as of this encounter Care Teams Greige Goods Examiner Relationship Specialty Start Date End Date Caitlyn Bowie MD [address] [address] PCP - General Internal Medicine 05/06/21 documented as of this encounter
--- OUTSIDE RECORDS SUMMARY | 2024-09-04 17:32 | XMS_ITS | Encounter Summary ---
Author Organization [facility] Address [address] [place] [address] Care Team Providers Care Money Laundering Investigator Name Role Phone Caitlyn Bowie MD Primary Care Provider +1- [phone] Encounter Details Date Type Department Care Team (Late st Contact Info) Description 02/02/2017 Scanned Document [facility] Health Information Management [address] [place] [address] External, Provider Social History Tobacco Use Types [...] Description 09/30/2024 8:00 PM EDT Procedure visit [facility] [address] [place] [address] [address] [place] [address] 10/31/2024 1:00 PM EDT Telemedicine [facility] at [facility] 240 [facility] Building [address] [place], [place] [address] Ronald Mills MD 240 [facility] A1 [place] [address] documented as of this encounter Visit Diagnoses Not on filedocumented in this encounter Additional Health Concerns Infection Onset Date Last Indicated Resolved Time COVID-19 03/05/2022 03/05/2022 03/15/2022 7:18 PM EDT documented as of this encounter Care Teams Money Laundering Investigator Relationship Specialty Start Date End Date Caitlyn Bowie MD 3400 [facility] 1 [place] [address] PCP - General Internal Medicine 05/06/21 Henry Kelly MD Pulmonary Department 175 [facility], [address] [place] [address] Physician Pulmonary Disease 09/06/17 06/22/20 documented as of this encounter
--- OUTSIDE RECORDS SUMMARY | 2024-09-04 17:32 | XMS_ITS | Encounter Summary ---
Author Organization [facility] Address [address] [place] [address] Care Team Providers Care Cash Van Salesperson Name Role Phone Caitlyn Bowie MD Primary Care Provider +1- [phone] Encounter Details Date Type Department Care Team (Late st Contact Info) Description 12/16/2016 Scanned Document [facility] IN[facility] 234 [facility] AT [facility] Health Information Management [address] [place] [address] External, Provider Social History Tobacco Use Types [...] Description 09/30/2024 8:00 PM EDT Procedure visit [facility] [address] [place] [address] [address] [place] [address] 10/31/2024 1:00 PM EDT Telemedicine Cancer Center at [facility] 240 [facility] Building [address] [place], [place] [address] Ronald Mills MD 240 [facility] A1 [place] [address] documented as of this encounter Visit Diagnoses Not on filedocumented in this encounter Additional Health Concerns Infection Onset Date Last Indicated Resolved Time COVID-19 03/05/2022 03/05/2022 03/15/2022 7:18 PM EDT documented as of this encounter Care Teams Cash Van Salesperson Relationship Specialty Start Date End Date Caitlyn Bowie MD 3400 [facility] Max 1 [place] [address] PCP - General Internal Medicine 05/06/21 Henry Kelly MD Pulmonary Department 175 [facility], [address] [place] [address] Physician Pulmonary Disease 09/06/17 06/22/20 documented as of this encounter
--- OUTSIDE RECORDS SUMMARY | 2024-09-04 17:32 | XMS_ITS | Encounter Summary ---
Author Organization [facility] and [facility] Address [address] [place] [address] Care Team Providers Care Form Layer Name Role Phone Caitlyn Bowie MD Primary Care Provider +1- [phone] Encounter Details Date Type Department Care Team (Late st Contact Info) Description 11/18/2021 Scanned Document INTERFACE DEFAULT [address] [place] [address] System, Provider Not In Social History Tobacco [...] Description 09/30/2024 8:00 PM EDT Procedure visit [facility] [address] [place] [address] [address] [place] [address] 10/31/2024 1:00 PM EDT Telemedicine [facility] at [facility] 240 [facility] [address] [place] [address] Ronald Mills MD 240 [facility] A1 [place] [address] documented as of this encounter Visit Diagnoses Not on filedocumented in this encounter Additional Health Concerns Infection Onset Date Last Indicated Resolved Time COVID-19 03/05/2022 03/05/2022 03/15/2022 7:18 PM EDT Assessment Noted Time PHQ-9 Depression Total Score: 2 11/07/19 19 2:06 PM EDT documented as of this encounter Care Teams Form Layer Relationship Specialty Start Date End Date Caitlyn Bowie MD [address] [address] PCP - General Internal Medicine 05/06/21 documented as of this encounter
--- OUTSIDE RECORDS SUMMARY | 2024-09-04 17:32 | XMS_ITS | Clinical Summary ---
Author Organization [facility] Address [address] [place] [address] Care Team Providers Care Breaker Hand Name Role Phone Caitlyn Bowie MD Primary Care Provider +1- [phone] Allergies Active Allergy Reactions Criticality Noted Date [...] Breath High 05/09/2008 Bronchospasm or Wheezing Ipratropium [place] Unknown/Patient and Family Unable to Define Medium [...] 1 capsule by mouth daily. Active B Tepuuxt-O-Rxvhy Acid (STRESS 500 B-COMPLEX PO) Take 1 [...] age to complete this topic Care Teams Breaker Hand Relationship Specialty Start Date End Date Caitlyn Bowie MD [facility] [place] [address] PCP - General Internal Medicine 03/20/23
--- OUTSIDE RECORDS SUMMARY | 2024-09-04 17:32 | XMS_ITS | Encounter Summary ---
Author Organization [facility] and [facility] Address [address] [place] [address] Care Team Providers Care Swabber Name Role Phone Caitlyn Bowie MD Primary Care Provider +1- [phone] Encounter Details Date Type Department Care Team (Late st Contact Info) Description 02/20/2017 Scanned Document [facility] Health Information Management [address] [place] [address] External, Provider Social History Tobacco Use Types [...] Description 09/30/2024 8:00 PM EDT Procedure visit [facility] [address] [place] [address] [address] [place] [address] 10/31/2024 1:00 PM EDT Telemedicine [facility] at [facility] 240 [facility] Building [address] [place], [place] [address] Ronald Mills MD 240 [facility] A1 [place] [address] documented as of this encounter Procedures Procedure [...] documented as of this encounter Care Teams Swabber Relationship Specialty Start Date End Date Caitlyn Bowie MD 3400 [facility] 1 [place] [address] PCP - General Internal Medicine 05/06/21 Henry Kelly MD Pulmonary Department 175 [facility], [address] [place] [address] Physician Pulmonary Disease 09/06/17 06/22/20 documented as of this encounter
--- OUTSIDE RECORDS SUMMARY | 2024-09-04 17:32 | XMS_ITS | Encounter Summary ---
Author Organization [facility] Address [address] [place] [address] Care Team Providers Care Teacher Industrial Arts Name Role Phone Caitlyn Bowie MD Primary Care Provider +1- [phone] Encounter Details Date Type Department Care Team (Late st Contact Info) Description 09/15/2020 Scanned Document INTERFACE DEFAULT [address] [place] [address] System, Provider Not In Social History Tobacco [...] Description 09/30/2024 8:00 PM EDT Procedure visit [facility] [address] [place] [address] [address] [place] [address] 10/31/2024 1:00 PM EDT Telemedicine Cancer Center at [facility] 240 [facility] [address] [place] [address] Ronald Mills MD 240 [facility] A1 [place] [address] documented as of this encounter Visit Diagnoses Not on filedocumented in this encounter Additional Health Concerns Infection Onset Date Last Indicated Resolved Time COVID-19 03/05/2022 03/05/2022 03/15/2022 7:18 PM EDT Assessment Noted Time PHQ-9 Depression Total Score: 2 11/07/19 19 2:06 PM EDT documented as of this encounter Care Teams Teacher Industrial Arts Relationship Specialty Start Date End Date Caitlyn Bowie MD [address] [address] PCP - General Internal Medicine 05/06/21 documented as of this encounter
--- OUTSIDE RECORDS SUMMARY | 2024-09-04 17:32 | XMS_ITS | Encounter Summary ---
Author Organization [facility] Address [address] [place] [address] Care Team Providers Care Pencils Washer Name Role Phone Caitlyn Bowie MD Primary Care Provider +1- [phone] Encounter Details Date Type Department Care Team (Late st Contact Info) Description 09/07/2020 Scanned Document Cardiovascular Medicine at [address] [address] Norma Renee MD [address] [place] [phone] Social History Tobacco Use Types Packs/Day Years [...] Description 09/30/2024 8:00 PM EDT Procedure visit [facility] [address] [place] [address] [address] [place] [address] 10/31/2024 1:00 PM EDT Telemedicine Cancer Center at [address] [place], [place] [address] Ronald Mills MD 240 [facility] Max [address]1 [place] [address] documented as of this encounter Visit Diagnoses Not on filedocumented in this encounter Additional Health Concerns Infection Onset Date Last Indicated Resolved Time COVID-19 03/05/2022 03/05/2022 03/15/2022 7:18 PM EDT Assessment Noted Time PHQ-9 Depression Total Score: 2 11/07/19 19 2:06 PM EDT documented as of this encounter Care Teams Pencils Washer Relationship Specialty Start Date End Date Caitlyn Bowie MD [address] [address] PCP - General Internal Medicine 05/06/21 documented as of this encounter
--- OUTSIDE RECORDS SUMMARY | 2024-09-04 17:32 | XMS_ITS | Encounter Summary ---
Author Organization [facility] Address [address] [place] [address] Care Team Providers Care Clinical Laboratory Technologist Name Role Phone Caitlyn Bowie MD Primary Care Provider +1- [phone] Encounter Details Date Type Department Care Team (Late Contact Info) Description 10/29/2021 Scanned Document [facility] Health Information Management [address] [place] [phone] External, Provider Social History Tobacco Use Types [...] Description 09/30/2024 8:00 PM EDT Procedure visit [facility] [address] [place] [address] [address] [place] [address] 10/31/2024 1:00 PM EDT Telemedicine Cancer Center at [address] [place] [address] Ronald Mills MD 240 [facility] A1 [place] [address] documented as of this encounter [...] as of this encounter Care Teams Clinical Laboratory Technologist Relationship Specialty Start Date End Date Caitlyn Bowie MD [address] [address] PCP - General Internal Medicine 05/06/21 documented as of this encounter
--- OUTSIDE RECORDS SUMMARY | 2024-09-04 17:32 | XMS_ITS | Encounter Summary ---
Author Organization [facility] Address [address] [place] [address] Care Team Providers Care Eligibility Services Representative Name Role Phone Caitlyn Bowie MD Primary Care Provider +1- [phone] Encounter Details Date Type Department Care Team (Late st Contact Info) Description 12/16/2016 Scanned Document [facility] Health Information Management [address] [place] [address] External, Provider Social History Tobacco Use Types [...] Description 09/30/2024 8:00 PM EDT Procedure visit [facility] [address] [place] [address] [address] [place] [address] 10/31/2024 1:00 PM EDT Telemedicine [facility] at [facility] 240 [facility] Building [address] [place], [place] [address] Ronald Mills MD 240 [facility] A1 [place] [address] documented as of this encounter Procedures Procedure [...] documented as of this encounter Care Teams Eligibility Services Representative Relationship Specialty Start Date End Date Caitlyn Bowie MD 3400 [facility] 1 [place] [address] PCP - General Internal Medicine 05/06/21 Henry Kelly MD Pulmonary Department 175 [facility], [address] [place] [address] Physician Pulmonary Disease 09/06/17 06/22/20 documented as of this encounter
--- OUTSIDE RECORDS SUMMARY | 2024-09-04 17:32 | XMS_ITS | Encounter Summary ---
Author Organization [facility] Address [address] [place] [address] Care Team Providers Care Branch Office Manager Name Role Phone Caitlyn Bowie MD Primary Care Provider +1- [phone] Encounter Details Date Type Department Care Team (Late st Contact Info) Description 09/16/2020 Scanned Document [facility] Health Information Management [address] [place] [phone] External, Provider Social History Tobacco Use Types [...] Description 09/30/2024 8:00 PM EDT Procedure visit [facility] [address] [place] [address] [address] [place] [address] 10/31/2024 1:00 PM EDT Telemedicine Cancer Center at [address] [place] [address] Ronald Mills MD 240 [facility] A1 [place] [address] documented as of this encounter [...] documented as of this encounter Care Teams Branch Office Manager Relationship Specialty Start Date End Date Caitlyn Bowie MD [address] [address] PCP - General Internal Medicine 05/06/21 documented as of this encounter
--- OUTSIDE RECORDS SUMMARY | 2024-09-04 17:32 | XMS_ITS | Encounter Summary ---
Author Organization [facility] Address [address] [place] [address] Care Team Providers Care Mechanical Assembler Name Role Phone Caitlyn Bowie MD Primary Care Provider +1- [phone] Encounter Details Date Type Department Care Team (Late st Contact Info) Description 12/16/2016 Scanned Document [facility] Health Information Management [address] [place] [address] External, Provider Social History Tobacco Use Types [...] Description 09/30/2024 8:00 PM EDT Procedure visit [facility] [address] [place] [address] [address] [place] [address] 10/31/2024 1:00 PM EDT Telemedicine [facility] 240 [facility] Building [address] [place], [place] [address] Ronald Mills MD 240 [facility] A1 [place] [address] documented as of this encounter Procedures Procedure [...] as of this encounter Care Teams Mechanical Assembler Relationship Specialty Start Date End Date Caitlyn Bowie MD 3400 [facility] 1 [place] [address] PCP - General Internal Medicine 05/06/21 Henry Kelly MD Pulmonary Department 175 [facility], [address] [place] [address] Physician Pulmonary Disease 09/06/17 06/22/20 documented as of this encounter
--- OUTSIDE RECORDS SUMMARY | 2024-09-04 17:32 | XMS_ITS | Encounter Summary ---
Author Organization [facility] Address [address] [place] [address] Care Team Providers Care Lumber Scaler Name Role Phone Caitlyn Bowie MD Primary Care Provider +1- [phone] Encounter Details Date Type Department Care Team (Late st Contact Info) Description 10/15/2018 Scanned Document [facility] Health Information Management [address] [place] [phone] External, Provider Social History Tobacco Use Types [...] Description 09/30/2024 8:00 PM EDT Procedure visit [facility] [address] [place] [address] [address] [place] [address] 10/31/2024 1:00 PM EDT Telemedicine Cancer Center at [facility] 240 [facility] [address] [place], [place] [phone] Ronald Mills MD 240 [facility] A1 [place] [address] documented as of this encounter Visit Diagnoses Not on filedocumented in this encounter Additional Health Concerns Infection Onset Date Last Indicated Resolved Time COVID-19 03/05/2022 03/05/2022 03/15/2022 7:18 PM EDT documented as of this encounter Care Teams Lumber Scaler Relationship Specialty Start Date End Date aCitlyn Bowie MD 3400 [facility] 1 [place] [address] PCP - General Internal Medicine 05/06/21 Henry Kelly MD Pulmonary Department 175 [facility], [address] [place] [address] Physician Pulmonary Disease 09/06/17 06/22/20 documented as of this encounter
--- OUTSIDE RECORDS SUMMARY | 2024-09-04 17:32 | XMS_ITS | Encounter Summary ---
Author Organization [facility] and [facility] Address [address] [place] [address] Care Team Providers Care Food Trades Assistants Name Role Phone Caitlyn Bowie MD Primary Care Provider +1- [phone] Encounter Details Date Type Department Care Team (Late st Contact Info) Description 07/30/2018 Scanned Document [facility] Health Information Management [address] [place] [address] External, Provider Social History Tobacco Use Types [...] Description 09/30/2024 8:00 PM EDT Procedure visit [facility] [address] [place] [address] [address] [place] [address] 10/31/2024 1:00 PM EDT Telemedicine Cancer Center at [facility] 240 [facility] Building [address] [place], [place] [address] Ronald Mills MD 240 [facility] A1 [place] [address] documented as of this encounter [...] as of this encounter Care Teams Food Trades Assistants Relationship Specialty Start Date End Date Caitlyn Bowie MD 3400 [facility] 1 [place] [address] PCP - General Internal Medicine 05/06/21 Henry Kelly MD Pulmonary Department 175 [facility], [address] [place] [address] Physician Pulmonary Disease 09/06/17 06/22/20 documented as of this encounter
--- OUTSIDE RECORDS SUMMARY | 2024-09-04 17:33 | XMS_ITS | Encounter Summary ---
Author Organization [facility] Address [address] [place] [address] Care Team Providers Care Engineer Chief Name Role Phone Caitlyn Bowie MD Primary Care Provider +1- [phone] Encounter Details Date Type Department Care Team (Late st Contact Info) Description 09/09/2021 Scanned Document INTERFACE DEFAULT [address] [place] [phone] System, Provider Not In Social History Tobacco [...] Description 09/30/2024 8:00 PM EDT Procedure visit [facility] [address] [place] [address] [address] [place] [address] 10/31/2024 1:00 PM EDT Telemedicine Cancer Center at [facility] 240 [facility] [address] [place] [address] Ronald Mills MD 240 [facility] A1 [place] [address] documented as of this encounter Visit Diagnoses Not on filedocumented in this encounter Additional Health Concerns Infection Onset Date Last Indicated Resolved Time COVID-19 03/05/2022 03/05/2022 03/15/2022 7:18 PM EDT Assessment Noted Time PHQ-9 Depression Total Score: 2 11/07/19 19 2:06 PM EDT documented as of this encounter Care Teams Engineer Chief Relationship Specialty Start Date End Date Caitlyn Bowie MD [address] [address] PCP - General Internal Medicine 05/06/21 documented as of this encounter
--- OUTSIDE RECORDS SUMMARY | 2024-09-04 17:33 | XMS_ITS | Encounter Summary ---
Author Organization [facility] Address [address] [place] [address] Care Team Providers Care Replenisher Name Role Phone Caitlyn Bowie MD Primary Care Provider +1- [phone] Reason for Visit * Reason Comments Advice Only mass Encounter Details Date Type Department Care Team (Late st Contact Info) Description 09/06/2021 Telephone [facility] at [address] [address] Ronald Mills MD [address] [place] [address] Advice Only (mass) Social History Tobacco [...] CT report requested. * Telephone Encounter - MarkusChely - 09/06/2021 9:05 AM EST Her pcp ordered a CT of her stomach and it found a mass in her kidney. She's very scared and would like to discuss with Dr Mills as soon as possible, . documented in this encounter Plan of Treatment Upcoming Encounters Date Type Department Care Team (Late st Contact Info) Description 09/30/2024 8:00 PM EDT Procedure visit [facility] [address] [place] [address] [address] [place] [address] 10/31/2024 1:00 PM EDT Telemedicine Cancer Center at [address] [place], [place] [address] Ronald Mills MD 240 [facility] A1 [place] [address] documented as of this encounter Visit Diagnoses Not on filedocumented in this encounter Additional Health Concerns Infection Onset Date Last Indicated Resolved Time COVID-19 03/05/2022 03/05/2022 03/15/2022 7:18 PM EDT Assessment Noted Time PHQ-9 Depression Total Score: 2 11/07/19 19 2:06 PM EDT documented as of this encounter Care Teams Replenisher Relationship Specialty Start Date End Date Caitlyn Bowie MD [address] [address] PCP - General Internal Medicine 05/06/21 documented as of this encounter
--- OUTSIDE RECORDS SUMMARY | 2024-09-04 17:33 | XMS_ITS | Encounter Summary ---
Author Organization [facility] Address [address] [place] [address] Care Team Providers Care Manager Subway Name Role Phone Caitlyn Bowie MD Primary Care Provider +1- [phone] Encounter Details Date Type Department Care Team (Late st Contact Info) Description 06/28/2022 Scanned Document INTERFACE DEFAULT [address] [place] [address] System, Provider Not In Social History Tobacco [...] Description 09/30/2024 8:00 PM EDT Procedure visit [facility] [address] [place] [address] [address] [place] [address] 10/31/2024 1:00 PM EDT Telemedicine Cancer Center at [facility] 240 [facility] [address] [place] [address] Ronald Mills MD 240 [facility] A1 [place] [address] documented as of this encounter Procedures Procedure [...] as of this encounter Care Teams Manager Subway Relationship Specialty Start Date End Date Caitlyn Bowie MD [address] [address] PCP - General Internal Medicine 05/06/21 documented as of this encounter
--- OUTSIDE RECORDS SUMMARY | 2024-09-04 17:33 | XMS_ITS ---
Author Organization [facility] Address 46 [facility] 2[address] [place] [address] Care Team Providers Care Mix Crusher Operator Name Role Phone EVELIN RAMSAY Primary Care Provider Yenny Hou Unavailable [phone] Allergies Allergen (clinical drug ingredient) Drug/Non Drug [...] bedtime, 1/2 tab prn during the day [facility] 06/10/2014 Active Advair HFA 230-21MCG/ACT 2 Inhalation tw ice daily for -3 06/10/2014 Active EpiPen Active Meclizine HCl 25 MG 1 tablet as needed Orally [facility] 06/10/2014 Active Rosuvastatin Calcium 05/03/2024 Active predniSONE 2.5 MG Oral for 30 Active Singulair 10 MG 1 tablet Orally Once a day Active Metoprolol Succinate ER 50 MG 1 tablet Orally Once a day Active Synthroid 25MCG 1 ORAL daily for - [facility] 06/10/2014 Active Albuterol Sulfate (2.5 [...] Answer Notes Tobacco use: Nonsmoker Vital Signs Height 63 in 07/09/2024 Weight 126 lbs 07/09/2024 BMI 22.32 kg/m2 07/09/2024 Blood pressure systolic 112 mm Hg 07/09/20 24 Blood pressure diastolic 86 mm Hg 024 Temperature 98.0 degrees Fahrenheit 07/09/20 24 Encounters Encounter Location Date Provider Diagnosis Total [address] [place] [address] 07/09/2024 Yenny Lovettva Urgency of urination R39.15 [...] Notes * TONIE WATSONOB:1945 (79 yo F)Acc No.[id number]:07/09/2024 PROGRESS NOTES Patient:?SHIRLEY CINDA Appointment Provider:?Yenny doan M.D. :1945???Age:79 Y???Sex:Female D ate:07/09/2024 Address:[address] [place] [address], [facility] Pcp:EVELIN RAMSAY Subjective: * Chief Complaints: * [...] ODORED DISCHARGE.?no?skin complaints.? * Medical History:? * Corporate Development Associate History:?/ Para?2/2.?Sexual activity?not currently sexually active.?Last Pap [...] mm Hg, Temp: 98.0 F. * Examination: ???SHIPPING ASSISTANT exam: ?EXTERNAL GENITALIA:?Normal female. No lesions, erythema [...] Elizalde M.D. Date:?07/09/2024 Generated for Arely paige/Sebastian/Zacheryitting on:?09/04/2024 05:33 PM EST History and Physical Notes * [...] Category Sub-Category Detail Notes Category Not es SHIPPING ASSISTANT exam CERVIX: surgically absent VAGINA: atrophic changes, er ythematous with yellow white discharge, pH>4.5, +whiff test EXTERNAL GENITALIA: Normal female. No le sions, erythema or discharge UTERUS: absent ADNEXA: surgically absent
--- OUTSIDE RECORDS SUMMARY | 2024-09-04 17:33 | XMS_ITS | Encounter Summary ---
Author Organization [facility] Address [address] [place] [address] Care Team Providers Care Funeral Home Attendant Name Role Phone Caitlyn Bowie MD Primary Care Provider +1- [phone] Encounter Details Date Type Department Care Team (Late st Contact Info) Description 10/24/2022 Scanned Document INTERFACE DEFAULT [address] [place] [phone] System, Provider Not In Social History Tobacco [...] Description 09/30/2024 8:00 PM EDT Procedure visit [facility] [address] [place] [address] [address] [place] [address] 10/31/2024 1:00 PM EDT Telemedicine Cancer Center at [facility] 240 [facility] [address] [place] [address] Ronald Mills MD 240 [facility] A1 [place] [address] documented as of this encounter Procedures Procedure [...] documented as of this encounter Care Teams Funeral Home Attendant Relationship Specialty Start Date End Date Caitlyn Bowie MD [address] [address] PCP - General Internal Medicine 05/06/21 documented as of this encounter
--- OUTSIDE RECORDS SUMMARY | 2024-09-04 17:33 | XMS_ITS | Encounter Summary ---
Author Organization [facility] Address [address] [place] [address] Care Team Providers Care Optician Apprentice Dispensing Name Role Phone Caitlyn Bowie MD Primary Care Provider +1- [phone] Encounter Details Date Type Department Care Team (Late st Contact Info) Description 07/08/2022 Scanned Document Cardiovascular Medicine at [address] [address] Norma Renee MD [address] [place] [phone] Social History Tobacco Use Types Packs/Day Years [...] Description 09/30/2024 8:00 PM EDT Procedure visit [facility] [address] [place] [address] [address] [place] [address] 10/31/2024 1:00 PM EDT Telemedicine Cancer Center at [address] [place] [address] Ronald Mills MD 240 [facility] Max A1 [place] [address] documented as of this encounter Visit Diagnoses Not on filedocumented in this encounter Additional Health Concerns Assessment Noted Time PHQ-9 Depression Total Score: 2 11/07/19 19 2:06 PM EDT documented as of this encounter Care Teams Optician Apprentice Dispensing Relationship Specialty Start Date End Date Caitlyn Bowie MD 3400 [facility] 1 [place] [address] PCP - General Internal Medicine 05/06/21 documented as of this encounter
--- OUTSIDE RECORDS SUMMARY | 2024-09-04 17:33 | XMS_ITS | Encounter Summary ---
Author Organization [facility] Address 20 [place] [address] Care Team Providers Care Bookkeeper Receptionist Name Role Phone Caitlyn Bowie MD Primary Care Provider +1- [phone] Encounter Details Date Type Department Care Team (Late st Contact Info) Description 08/29/2019 Scanned Document Cancer Center at [address] [address] External, Provider Social History Tobacco Use Types [...] Description 09/30/2024 8:00 PM EDT Procedure visit [facility] [address] [place] [address] [place] [phone] 10/31/2024 1:00 PM EDT Telemedicine Cancer Center at [address] [place] [address] Ronald Mills MD [address] [address] documented as of this encounter [...] documented as of this encounter Care Teams Bookkeeper Receptionist Relationship Specialty Start Date End Date Caitlyn Bowie MD 3400 [facility] Max 1 [place] [address] PCP - General Internal Medicine 05/06/21 Henry Kelly MD Pulmonary Department [address] [place] [address], [address] [place] [address] Physician Pulmonary Disease 09/06/17 06/22/20 documented as of this encounter
--- OUTSIDE RECORDS SUMMARY | 2024-09-04 17:33 | XMS_ITS | Encounter Summary ---
Author Organization [facility] and [facility] Address [address] [place] [address] Care Team Providers Care Deli Department Manager Name Role Phone Caitlyn Bowie MD Primary Care Provider +1- [phone] Encounter Details Date Type Department Care Team (Late st Contact Info) Description 09/24/2021 Scanned Document INTERFACE DEFAULT [address] [place] [address] System, Provider Not In Social History Tobacco [...] Description 09/30/2024 8:00 PM EDT Procedure visit [facility] [address] [place] [address] [address] [place] [address] 10/31/2024 1:00 PM EDT Telemedicine Cancer Center at [facility] [address] [facility] [address] [place] [address] Ronald Mills MD 240 [facility] A1 [place] [address] documented as of this encounter Procedures Procedure [...] documented as of this encounter Care Teams Deli Department Manager Relationship Specialty Start Date End Date Caitlyn Bowie MD [address] [address] PCP - General Internal Medicine 05/06/21 documented as of this encounter
--- OUTSIDE RECORDS SUMMARY | 2024-09-04 17:33 | XMS_ITS | Encounter Summary ---
Author Organization [facility] Address 20 [place] [address] Care Team Providers Care Distillery Manager Name Role Phone Caitlyn Bowie MD Primary Care Provider +1- [phone] Encounter Details Date Type Department Care Team (Late st Contact Info) Description 01/28/2013 Scanned Document Thoracic Oncology Program at [address] [address] Solo Henry MD [address] [place] [phone] Social History Tobacco Use Types Packs/Day [...] Description 09/30/2024 8:00 PM EDT Procedure visit [facility] [address] [place] [address] [place] [phone] 10/31/2024 1:00 PM EDT Telemedicine Cancer Center at [address] [place] [address] Ronald Mills MD [address] [place] [address] [phone] documented as of this encounter Visit Diagnoses Not on filedocumented in this encounter Additional Health Concerns Infection Onset Date Last Indicated Resolved Time COVID-19 03/05/2022 03/05/2022 03/15/2022 7:18 PM EDT documented as of this encounter Care Teams Distillery Manager Relationship Specialty Start Date End Date Caitlyn Bowie MD 3400 [facility] 1 [place] [address] PCP - General Internal Medicine 05/06/21 Henry Kelly MD Pulmonary Department 175 [facility], [address] [place] [address] Physician Pulmonary Disease 09/06/17 06/22/20 documented as of this encounter
--- OUTSIDE RECORDS SUMMARY | 2024-09-04 17:33 | XMS_ITS | Encounter Summary ---
Author Organization [facility] and [facility] Address [address] [place] [address] Care Team Providers Care Belt Maker Helper Name Role Phone Caitlyn Bowie MD Primary Care Provider +1- [phone] Encounter Details Date Type Department Care Team (Late st Contact Info) Description 07/06/2021 Scanned Document INTERFACE DEFAULT [address] [place] [address] System, Provider Not In Social History Tobacco [...] Description 09/30/2024 8:00 PM EDT Procedure visit [facility] [address] [place] [address] [address] [place] [address] 10/31/2024 1:00 PM EDT Telemedicine Cancer Center at [facility] 240 [facility] [address] [place] [address] Ronald Mills MD 240 [facility] A1 [place] [address] documented as of this encounter Visit Diagnoses Not on filedocumented in this encounter Additional Health Concerns Infection Onset Date Last Indicated Resolved Time COVID-19 03/05/2022 03/05/2022 03/15/2022 7:18 PM EDT Assessment Noted Time PHQ-9 Depression Total Score: 2 11/07/19 19 2:06 PM EDT documented as of this encounter Care Teams Belt Maker Helper Relationship Specialty Start Date End Date Caitlyn Bowie MD [address] [address] PCP - General Internal Medicine 05/06/21 documented as of this encounter
--- OUTSIDE RECORDS SUMMARY | 2024-09-04 17:33 | XMS_ITS | Encounter Summary ---
Author Organization [facility] and [facility] Address [address] [place] [address] Care Team Providers Care Tie Inspector Name Role Phone Caitlyn Bowie MD Primary Care Provider +1- [phone] Encounter Details Date Type Department Care Team (Late st Contact Info) Description 06/27/2019 Scanned Document Onco-Oncology Program at [address] [place] [address] Norma Renee MD [address] [place] [address] 2 [place] [phone] Social History Tobacco Use Types Packs/Day Years [...] Description 09/30/2024 8:00 PM EDT Procedure visit [facility] [address] [place] [phone] 10/31/2024 1:00 PM EDT Telemedicine Cancer Center at [address] [place], [place] [address] Ronald Mills MD 240 [facility] [address] [place] [address] documented as of this encounter Visit Diagnoses Not on filedocumented in this encounter Additional Health Concerns Infection Onset Date Last Indicated Resolved Time COVID-19 03/05/2022 03/05/2022 03/15/2022 7:18 PM EDT Assessment Noted Time PHQ-9 Depression Total Score: 2 11/07/19 19 2:06 PM EDT documented as of this encounter Care Teams Tie Inspector Relationship Specialty Start Date End Date Caitlyn Bowie MD 3400 [facility] 1 [place] [address] PCP - General Internal Medicine 05/06/21 Henry Kelly MD Pulmonary Department [address] [place] [address], [address] [place] [address] Physician Pulmonary Disease 09/06/17 06/22/20 documented as of this encounter
--- OUTSIDE RECORDS SUMMARY | 2024-09-04 17:33 | XMS_ITS | Clinical Summary ---
Author Organization [facility] Address [address] [place] [address] Care Team Providers Care College Professor Name Role Phone Brennan Burnett MD Primary Care Provider [phone] Allergies Active Allergy Reactions Criticality Noted Date [...] age to complete this topic Care Teams College Professor Relationship Specialty Start Date End Date Brennan Burnett MD [address] [place] [address] PCP - General Internal Medicine 07/06/20
--- OUTSIDE RECORDS SUMMARY | 2024-09-04 17:33 | XMS_ITS | Encounter Summary ---
Author Organization [facility] Address [address] [place] [address] Care Team Providers Care Automation Tester Name Role Phone Caitlyn Bowie MD Primary Care Provider +1- [phone] Encounter Details Date Type Department Care Team (Late st Contact Info) Description 08/16/2012 Abstract [facility] Health Information Management [address] [place] [address] [place], Primary Care [address] [place] [address] Social History Tobacco Use Types Packs/Day Years [...] Description 09/30/2024 8:00 PM EDT Procedure visit [facility] [address] [place] [phone] 10/31/2024 1:00 PM EDT Telemedicine Cancer Center at [facility] [place] [address] [facility] [address] [place] [address] Ronald Mills MD 240 [facility] [address] [place] [address] documented as of this encounter Visit Diagnoses Not on filedocumented in this encounter Additional Health Concerns Infection Onset Date Last Indicated Resolved Time COVID-19 03/05/2022 03/05/2022 03/15/2022 7:18 PM EDT documented as of this encounter Care Teams Automation Tester Relationship Specialty Start Date End Date Caitlyn Bowie MD 3400 [facility] 1 [place] [address] PCP - General Internal Medicine 05/06/21 Henry Kelly MD Pulmonary Department 175 [facility], [address] [place] [address] Physician Pulmonary Disease 09/06/17 06/22/20 documented as of this encounter
--- OUTSIDE RECORDS SUMMARY | 2024-09-04 17:33 | XMS_ITS | Encounter Summary ---
Author Organization [facility] and [facility] Address [address] [place] [address] Care Team Providers Care Coffee Shop Manager Name Role Phone Caitlyn Bowie MD Primary Care Provider +1- [phone] Encounter Details Date Type Department Care Team (Late st Contact Info) Description 07/07/2021 Scanned Document INTERFACE DEFAULT [address] [place] [address] System, Provider Not In Social History Tobacco [...] Description 09/30/2024 8:00 PM EDT Procedure visit [facility] [address] [place] [address] [address] [place] [address] 10/31/2024 1:00 PM EDT Telemedicine Cancer Center at [facility] [address] [facility] [address] [place] [address] Ronald Mills MD 240 [facility] A1 [place] [address] documented as of this encounter Visit Diagnoses Not on filedocumented in this encounter Additional Health Concerns Infection Onset Date Last Indicated Resolved Time COVID-19 03/05/2022 03/05/2022 03/15/2022 7:18 PM EDT Assessment Noted Time PHQ-9 Depression Total Score: 2 11/07/19 19 2:06 PM EDT documented as of this encounter Care Teams Coffee Shop Manager Relationship Specialty Start Date End Date Caitlyn Bowie MD [address] [address] PCP - General Internal Medicine 05/06/21 documented as of this encounter
--- OUTSIDE RECORDS SUMMARY | 2024-09-04 17:33 | XMS_ITS | Encounter Summary ---
Author Organization [facility] Address [address] [place] [address] Care Team Providers Care Lead Fire Protection Engineer Name Role Phone Caitlyn Bowie MD Primary Care Provider +1- [phone] Encounter Details Date Type Department Care Team (Late st Contact Info) Description 04/18/2013 Documentation Hematology Program at [address] [address] Isis Ragland RN Social History Tobacco Use [...] Description 09/30/2024 8:00 PM EDT Procedure visit [facility] [address] [place] [address] [address] [place] [address] 10/31/2024 1:00 PM EDT Telemedicine Cancer Center at [address] [place], [place] [address] Ronald Mills MD [address] [place] [address] documented as of this encounter Visit Diagnoses Not on filedocumented in this encounter Additional Health Concerns Infection Onset Date Last Indicated Resolved Time COVID-19 03/05/2022 03/05/2022 03/15/2022 7:18 PM EDT documented as of this encounter Care Teams Lead Fire Protection Engineer Relationship Specialty Start Date End Date Caitlyn Bowie MD 3400 [facility] Max 1 [place] [address] PCP - General Internal Medicine 05/06/21 Henry Kelly MD Pulmonary Department 175 [facility], [address] [place] [address] Physician Pulmonary Disease 09/06/17 06/22/20 documented as of this encounter
--- OUTSIDE RECORDS SUMMARY | 2024-09-04 17:33 | XMS_ITS | Encounter Summary ---
Author Organization [facility] and [facility] Address [address] [place] [address] Care Team Providers Care Telephone Clerk Telegraph Office Name Role Phone Caitlyn Bowie MD Primary Care Provider +1- [phone] Encounter Details Date Type Department Care Team (Late st Contact Info) Description 04/26/2021 Scanned Document INTERFACE DEFAULT [address] [place] [address] System, Provider Not In Social History Tobacco [...] Description 09/30/2024 8:00 PM EDT Procedure visit [facility] [address] [place] [address] [address] [place] [phone] 10/31/2024 1:00 PM EDT Telemedicine Cancer Center at [facility] 240 [facility] [address] [place] [address] Ronald Mills MD 240 [facility] [address]1 [place] [address] documented as of this encounter Procedures Procedure [...] documented as of this encounter Care Teams Telephone Clerk Telegraph Office Relationship Specialty Start Date End Date Caitlyn Bowie MD [facility] [address] [address] PCP - General Internal Medicine 05/06/21 documented as of this encounter
--- OUTSIDE RECORDS SUMMARY | 2024-09-04 17:33 | XMS_ITS | Encounter Summary ---
Author Organization [facility] Address [address] [place] [address] Care Team Providers Care Tempering Machine Operator Name Role Phone Caitlyn Bowie MD Primary Care Provider +1- [phone] Encounter Details Date Type Department Care Team (Late st Contact Info) Description 09/23/2021 Scanned Document INTERFACE DEFAULT [address] [place] [address] System, Provider Not In Social History Tobacco [...] Description 09/30/2024 8:00 PM EDT Procedure visit [facility] [address] [place] [address] [address] [place] [address] 10/31/2024 1:00 PM EDT Telemedicine Cancer Center at [facility] 240 [facility] [address] [place] [address] Ronald Mills MD 240 [facility] A1 [place] [address] documented as of this encounter Procedures Procedure [...] documented as of this encounter Care Teams Tempering Machine Operator Relationship Specialty Start Date End Date Caitlyn Bowie MD [address] [address] PCP - General Internal Medicine 05/06/21 documented as of this encounter
--- OUTSIDE RECORDS SUMMARY | 2024-09-04 17:33 | XMS_ITS | Encounter Summary ---
Author Organization [facility] and [facility] Address [address] [place] [address] Care Team Providers Care Book Coverer Name Role Phone Caitlyn Bowie MD Primary Care Provider +1- [phone] Encounter Details Date Type Department Care Team (Late st Contact Info) Description 01/22/2020 Scanned Document [facility] [address] [place] [address] Kerwin Menjivar MD [address] [place] [phone] Social History Tobacco Use Types Packs/Day [...] Description 09/30/2024 8:00 PM EDT Procedure visit [facility] [address] [place] [address] [address] [place] [address] 10/31/2024 1:00 PM EDT Telemedicine Cancer Center at [address] [place], [place] [address] Ronald Mills MD 240 [facility] Max [address] [place] [address] documented as of this encounter Visit Diagnoses Not on filedocumented in this encounter Additional Health Concerns Infection Onset Date Last Indicated Resolved Time COVID-19 03/05/2022 03/05/2022 03/15/2022 7:18 PM EDT Assessment Noted Time PHQ-9 Depression Total Score: 2 11/07/19 19 2:06 PM EDT documented as of this encounter Care Teams Book Coverer Relationship Specialty Start Date End Date Caitlyn Bowie MD [address] [address] PCP - General Internal Medicine 05/06/21 Henry Kelly MD Pulmonary Department 175 [facility], [address] [place] [address] Physician Pulmonary Disease 09/06/17 06/22/20 documented as of this encounter
--- OUTSIDE RECORDS SUMMARY | 2024-09-04 17:33 | XMS_ITS | Encounter Summary ---
Author Organization [facility] Address [address] [place] [address] Care Team Providers Care Mold Hoister Name Role Phone Caitlyn Bowie MD Primary Care Provider +1- [phone] Encounter Details Date Type Department Care Team (Late st Contact Info) Description 04/25/2021 Scanned Document INTERFACE DEFAULT [address] [place] [address] System, Provider Not In Social History Tobacco [...] Description 09/30/2024 8:00 PM EDT Procedure visit [facility] [address] [place] [address] [address] [place] [address] 10/31/2024 1:00 PM EDT Telemedicine Cancer [facility] at [facility] 240 [facility] [address] [place] [address] Ronald Mills MD 240 [facility] A1 [place] [address] documented as of this encounter Procedures Procedure [...] as of this encounter Care Teams Mold Hoister Relationship Specialty Start Date End Date Caitlyn Bowie MD [facility] [address] [address] PCP - General Internal Medicine 05/06/21 documented as of this encounter
--- OUTSIDE RECORDS SUMMARY | 2024-09-04 17:33 | XMS_ITS | Encounter Summary ---
Author Organization [facility] Address [address] [place] [address] Care Team Providers Care Blueprinting And Photocopy Supervisor Name Role Phone Caitlyn Bowie MD Primary Care Provider +1- [phone] Encounter Details Date Type Department Care Team (Late st Contact Info) Description 11/29/2019 Scanned Document [facility] Health Information Management [address] [place] [address] External, Provider Social History Tobacco Use Types [...] Description 09/30/2024 8:00 PM EDT Procedure visit [facility] [address] [place] [address] [address] [place] [address] 10/31/2024 1:00 PM EDT Telemedicine Cancer Center at [facility] 240 [facility] [address] [place] [address] Ronald Mills MD 240 [facility] [address]1 [place] [address] documented as of this encounter Procedures Procedure [...] documented as of this encounter Care Teams Blueprinting And Photocopy Supervisor Relationship Specialty Start Date End Date Caitlyn Bowie MD 3400 [facility] 1 [place] [address] PCP - General Internal Medicine 05/06/21 Henry Kelly MD Pulmonary Department 175 [facility], [address] [place] [address] Physician Pulmonary Disease 09/06/17 06/22/20 documented as of this encounter
--- OUTSIDE RECORDS SUMMARY | 2024-09-04 17:33 | XMS_ITS | Encounter Summary ---
Author Organization [facility] [place] and [facility] Address [address] [place] [address] Care Team Providers Care Litigation Support Analyst Name Role Phone Caitlyn oBwie MD Primary Care Provider +1- [phone] Encounter Details Date Type Department Care Team (Late st Contact Info) Description 04/27/2021 Scanned Document INTERFACE DEFAULT [address] [place] [address] System, Provider Not In Social History Tobacco [...] Description 09/30/2024 8:00 PM EDT Procedure visit [facility] [address] [place] [address] [address] [place] [address] 10/31/2024 1:00 PM EDT Telemedicine Cancer [facility] at [facility] 240 [facility] [address] [place] [address] Ronald Mills MD 240 [facility] [address] [place] [address] documented as of this encounter Procedures Procedure [...] as of this encounter Care Teams Litigation Support Analyst Relationship Specialty Start Date End Date Caitlyn Bowie MD [address] [address] PCP - General Internal Medicine 05/06/21 documented as of this encounter
--- OUTSIDE RECORDS SUMMARY | 2024-09-04 17:33 | XMS_ITS | Encounter Summary ---
Author Organization [facility] Address [address] [place] [address] Care Team Providers Care Photographic Aide Name Role Phone Caitlyn Bowie MD Primary Care Provider +1- [phone] Encounter Details Date Type Department Care Team (Late st Contact Info) Description 06/27/2022 Scanned Document INTERFACE DEFAULT [address] [place] [address] System, Provider Not In Social History Tobacco [...] Description 09/30/2024 8:00 PM EDT Procedure visit [facility] [address] [place] [address] [address] [place] [address] 10/31/2024 1:00 PM EDT Telemedicine Cancer Center at [facility] 240 [facility] [address] [place] [address] Ronald Mills MD 240 [facility] A1 [place] [address] documented as of this encounter Procedures Procedure [...] documented as of this encounter Care Teams Photographic Aide Relationship Specialty Start Date End Date Caitlyn Bowie MD [facility] [address] [address] PCP - General Internal Medicine 05/06/21 documented as of this encounter
--- OUTSIDE RECORDS SUMMARY | 2024-09-04 17:33 | XMS_ITS | Encounter Summary ---
Author Organization [facility] and [facility] Address [address] [place] [address] Care Team Providers Care Owner Professional Engineer Name Role Phone Caitlyn Bowie MD Primary Care Provider +1- [phone] Encounter Details Date Type Department Care Team (Late st Contact Info) Description 01/28/2013 Scanned Document Thoracic Oncology Program at [address] [address] Solo eHnry MD [address] [place] [phone] Social History Tobacco Use Types Packs/Day [...] Description 09/30/2024 8:00 PM EDT Procedure visit [facility] [address] [place] [address] [place] [phone] 10/31/2024 1:00 PM EDT Telemedicine Cancer Center at [address] [place] [address] Ronald Mills MD [address] [place] [address] [phone] documented as of this encounter Visit Diagnoses Not on filedocumented in this encounter Additional Health Concerns Infection Onset Date Last Indicated Resolved Time COVID-19 03/05/2022 03/05/2022 03/15/2022 7:18 PM EDT documented as of this encounter Care Teams Owner Professional Engineer Relationship Specialty Start Date End Date Caitlyn Bowie MD 3400 [facility] 1 [place] [address] PCP - General Internal Medicine 05/06/21 Henry Kelly MD Pulmonary Department 175 [facility], [address] [place] [address] Physician Pulmonary Disease 09/06/17 06/22/20 documented as of this encounter
--- OUTSIDE RECORDS SUMMARY | 2024-09-04 17:33 | XMS_ITS | Encounter Summary ---
Author Organization [facility] Address 20 [place] [address] Care Team Providers Care Axle Bearing Polisher Name Role Phone Caitlyn Bowie MD Primary Care Provider +1- [phone] Encounter Details Date Type Department Care Team (Late st Contact Info) Description 08/23/2022 Abstract Cardiovascular Medicine at [address] [place] [address] Norma Renee MD [address] [place] [phone] Social History Tobacco Use Types Packs/Day Years [...] Description 09/30/2024 8:00 PM EDT Procedure visit [facility] [address] [place] [address] [address] [place] [address] 10/31/2024 1:00 PM EDT Telemedicine Cancer Center at [address] [facility] [place] [address] Ronald Mills MD [address] [place] [address] documented as of this encounter Visit Diagnoses Not on filedocumented in this encounter Additional Health Concerns Assessment Noted Time PHQ-9 Depression Total Score: 2 11/07/19 19 2:06 PM EDT documented as of this encounter Care Teams Axle Bearing Polisher Relationship Specialty Start Date End Date Caitlyn Bowie MD 3400 [facility] 1 [place] [address] PCP - General Internal Medicine 05/06/21 documented as of this encounter
--- OUTSIDE RECORDS SUMMARY | 2024-09-04 17:33 | XMS_ITS | Encounter Summary ---
Author Organization [facility] Address [address] [place] [address] Care Team Providers Care Medical Services Coordinator Name Role Phone Caitlyn Bowie MD Primary Care Provider +1- [phone] Encounter Details Date Type Department Care Team (Late st Contact Info) Description 11/26/2019 Scanned Document Cancer Center at [address] [address] External, Provider Social History Tobacco Use Types [...] Description 09/30/2024 8:00 PM EDT Procedure visit [facility] [address] [place] [address] [address] [place] [address] 10/31/2024 1:00 PM EDT Telemedicine Cancer Center at [address] [place] [address] Ronald Mills MD [address] [address] documented as of this encounter [...] as of this encounter Care Teams Medical Services Coordinator Relationship Specialty Start Date End Date Caitlyn Bowie MD 3400 [facility] Max 1 [place] [address] PCP - General Internal Medicine 05/06/21 Henry Kelly MD Pulmonary Department [address] [place] [address], [address] [place] [address] Physician Pulmonary Disease 09/06/17 06/22/20 documented as of this encounter
--- OUTSIDE RECORDS SUMMARY | 2024-09-04 17:33 | XMS_ITS | Encounter Summary ---
Author Organization [facility] and [facility] Address [address] [place] [address] Care Team Providers Care Grinding Wheel Operator Name Role Phone Caitlyn Bowie MD Primary Care Provider +1- [phone] Encounter Details Date Type Department Care Team (Late st Contact Info) Description 09/10/2021 Scanned Document Cardiovascular Medicine at [address] [address] Norma Renee MD [address] [place] [phone] Social History Tobacco Use Types Packs/Day Years [...] Description 09/30/2024 8:00 PM EDT Procedure visit [facility] [address] [place] [address] [address] [place] [address] 10/31/2024 1:00 PM EDT Telemedicine Cancer Center at [address] [place], [place] [address] Ronald Mills MD 240 [facility] Max [address] [place] [address] documented as of this encounter Visit Diagnoses Not on filedocumented in this encounter Additional Health Concerns Infection Onset Date Last Indicated Resolved Time COVID-19 03/05/2022 03/05/2022 03/15/2022 7:18 PM EDT Assessment Noted Time PHQ-9 Depression Total Score: 2 11/07/19 19 2:06 PM EDT documented as of this encounter Care Teams Grinding Wheel Operator Relationship Specialty Start Date End Date Caitlyn Bowie MD [address] [address] PCP - General Internal Medicine 05/06/21 documented as of this encounter
--- OUTSIDE RECORDS SUMMARY | 2024-09-04 17:33 | XMS_ITS | Encounter Summary ---
Author Organization [facility] Address [address] [place] [address] Care Team Providers Care First Cook Name Role Phone Caitlyn Bowie MD Primary Care Provider +1- [phone] Encounter Details Date Type Department Care Team (Late st Contact Info) Description 06/27/2019 Scanned Document Onco-Oncology Program at [address] [place] [address] Norma Renee MD [address] [place] [address] 2 [place] [phone] Social History Tobacco Use Types Packs/Day Years [...] Description 09/30/2024 8:00 PM EDT Procedure visit [facility] [address] [place] [address] 10/31/2024 1:00 PM EDT Telemedicine Cancer Center at [address] [place], [place] [address] Ronald Mills MD 240 [facility] [address] [place] [address] documented as of this encounter Visit Diagnoses Not on filedocumented in this encounter Additional Health Concerns Infection Onset Date Last Indicated Resolved Time COVID-19 03/05/2022 03/05/2022 03/15/2022 7:18 PM EDT Assessment Noted Time PHQ-9 Depression Total Score: 2 11/07/19 19 2:06 PM EDT documented as of this encounter Care Teams First Cook Relationship Specialty Start Date End Date Caitlyn Bowie MD 3400 [facility] 1 [place] [address] PCP - General Internal Medicine 05/06/21 Henry Kelly MD Pulmonary Department [address] [place] [address], [address] [place] [address] Physician Pulmonary Disease 09/06/17 06/22/20 documented as of this encounter
--- OUTSIDE RECORDS SUMMARY | 2024-09-04 17:33 | XMS_ITS | Encounter Summary ---
Author Organization [facility] Address [address] [place] [address] Care Team Providers Care Order Processing Specialist Name Role Phone Pcp, No Primary Care Provider Brennan Mario MD Primary Care Provider [phone] Caitlyn Bowie MD Primary Care Provider +1- [phone] Encounter Details Date Type Department Care Team (Late st Contact Info) Description 01/04/2022 Scanned Document [facility] Neurology Ophthalmology [address] [address] Yary Whitten DO [address] [place] [address] Social History Tobacco Use Types Packs/Day [...] on filedocumented in this encounter Care Teams Order Processing Specialist Relationship Specialty Start Date End Date Pcp, No PCP - General General Medicine 10/04/21 07/18/22 Brennan Burnett MD [address] [place] [address] PCP - General 07/19/22 03/19/23 Caitlyn Bowie MD 3400 [place] [address] PCP - General Internal Medicine 03/20/23 documented as of this encounter
--- OUTSIDE RECORDS SUMMARY | 2024-09-04 17:33 | XMS_ITS | Encounter Summary ---
Author Organization [facility] Address [address] [place] [address] Care Team Providers Care Top Frame Maker Name Role Phone Caitlyn Bowie MD Primary Care Provider +1- [phone] Encounter Details Date Type Department Care Team (Late Contact Info) Description 01/31/2023 Abstract [facility] Melanoma Surgery 35 [facility] [place] [address] Shilpi Romero, RN Social History Tobacco Use [...] 09/30/2024 8:00 PM EDT Procedure visit [facility] [address] [place] [address] [address] [place] [address] 10/31/2024 1:00 PM EDT Telemedicine Cancer Center at [address] [place] [address] Ronald Mills MD [address] [place] [address] [address] [place] [address] documented as of this encounter Visit Diagnoses Not on filedocumented in this encounter Additional Health Concerns Assessment Noted Time PHQ-9 Depression Total Score: 2 11/07/19 19 2:06 PM EDT documented as of this encounter Care Teams Top Frame Maker Relationship Specialty Start Date End Date Caitlyn Bowie MD [address] [address] PCP - General Internal Medicine 05/06/21 documented as of this encounter
--- OUTSIDE RECORDS SUMMARY | 2024-09-04 17:33 | XMS_ITS | Encounter Summary ---
Author Organization [facility] Address [address] [place] [address] Care Team Providers Care Fish Grader Name Role Phone Caitlyn Bowie MD Primary Care Provider +1- [phone] Encounter Details Date Type Department Care Team (Late st Contact Info) Description 07/26/2012 Abstract [facility] Health Information Management [address] [place] [address] [place], Primary Care [address] [place] [address] Social History Tobacco Use Types Packs/Day Years [...] Description 09/30/2024 8:00 PM EDT Procedure visit [facility] [address] [place] [address] 202 [place] [address] 10/31/2024 1:00 PM EDT Telemedicine [facility] at [facility] 240 [facility] Building [address] [place], [place] [address] Ronald Mills MD 240 [facility] Max [address] [place] [address] documented as of this encounter Visit Diagnoses Not on filedocumented in this encounter Additional Health Concerns Infection Onset Date Last Indicated Resolved Time COVID-19 03/05/2022 03/05/2022 03/15/2022 7:18 PM EDT documented as of this encounter Care Teams Fish Grader Relationship Specialty Start Date End Date Caitlyn Bowie MD 3400 [facility] 1 [place] [address] PCP - General Internal Medicine 05/06/21 Henry Kelly MD Pulmonary Department 175 [facility], [address] [place] [address] Physician Pulmonary Disease 09/06/17 06/22/20 documented as of this encounter
--- OUTSIDE RECORDS SUMMARY | 2024-09-04 17:33 | XMS_ITS | Encounter Summary ---
Author Organization [facility] Address [address] [place] [address] Care Team Providers Care Management Tech Name Role Phone Caitlyn Bowie MD Primary Care Provider +1- [phone] Encounter Details Date Type Department Care Team (Late st Contact Info) Description 08/29/2019 Scanned Document Cancer Center at [address] [address] External, Provider Social History Tobacco Use Types [...] Description 09/30/2024 8:00 PM EDT Procedure visit [facility] [address] [place] [address] [place] [phone] 10/31/2024 1:00 PM EDT Telemedicine Cancer Center at [address] [place] [address] Ronald Mills MD [address] [address] documented as of this encounter [...] as of this encounter Care Teams Management Tech Relationship Specialty Start Date End Date Caitlyn Bowie MD 3400 [facility] Max 1 [place] [address] PCP - General Internal Medicine 05/06/21 Henry Kelly MD Pulmonary Department [address] [place] [address], [address] [place] [address] Physician Pulmonary Disease 09/06/17 06/22/20 documented as of this encounter
--- OUTSIDE RECORDS SUMMARY | 2024-09-04 17:33 | XMS_ITS | Encounter Summary ---
Author Organization [facility] and [facility] Address [address] [place] [address] Care Team Providers Care Hydraulic Oil Tool Operator Name Role Phone Caitlyn Bowie MD Primary Care Provider +1- [phone] Encounter Details Date Type Department Care Team (Late st Contact Info) Description 12/03/2019 Scanned Document [facility] Health Information Management [address] [place] [address] External, Provider Social History Tobacco Use Types [...] Description 09/30/2024 8:00 PM EDT Procedure visit [facility] [address] [place] [address] [address] [place] [address] 10/31/2024 1:00 PM EDT Telemedicine Cancer Center at [facility] 240 [facility] [address] [place] [address] Ronald Mills MD 240 [facility] A1 [place] [address] documented as of this encounter Visit Diagnoses Not on filedocumented in this encounter Additional Health Concerns Infection Onset Date Last Indicated Resolved Time COVID-19 03/05/2022 03/05/2022 03/15/2022 7:18 PM EDT Assessment Noted Time PHQ-9 Depression Total Score: 2 11/07/19 19 2:06 PM EDT documented as of this encounter Care Teams Hydraulic Oil Tool Operator Relationship Specialty Start Date End Date Caitlyn Bowie MD 3400 [facility] 1 [place] [address] PCP - General Internal Medicine 05/06/21 Henry Kelly MD Pulmonary Department [address] [place] [address], [address] [place] [address] Physician Pulmonary Disease 09/06/17 06/22/20 documented as of this encounter
--- OUTSIDE RECORDS SUMMARY | 2024-09-04 17:33 | XMS_ITS | Encounter Summary ---
Author Organization [facility] Address [address] [place] [address] Care Team Providers Care Residential Glazier Name Role Phone Caitlyn Bowie MD Primary Care Provider +1- [phone] Encounter Details Date Type Department Care Team (Late st Contact Info) Description 04/28/2021 Scanned Document INTERFACE DEFAULT [address] [place] [address] System, Provider Not In Social History Tobacco [...] Description 09/30/2024 8:00 PM EDT Procedure visit [facility] [address] [place] [address] [address] [place] [address] 10/31/2024 1:00 PM EDT Telemedicine Cancer [facility] at [facility] 240 [facility] [address] [place] [address] Ronadl Mills MD 240 [facility] A1 [place] [address] documented as of this encounter Procedures Procedure [...] documented as of this encounter Care Teams Residential Glazier Relationship Specialty Start Date End Date Caitlyn Bowie MD [facility] [address] [address] PCP - General Internal Medicine 05/06/21 documented as of this encounter
--- OUTSIDE RECORDS SUMMARY | 2024-09-04 17:33 | XMS_ITS | Encounter Summary ---
Author Organization [facility] Address [address] [place] [address] Care Team Providers Care Housekeeping Aid Name Role Phone Caitlyn Bowie MD Primary Care Provider +1- [phone] Encounter Details Date Type Department Care Team (Late st Contact Info) Description 06/24/2022 Scanned Document INTERFACE DEFAULT [address] [place] [address] System, Provider Not In Social History Tobacco [...] 09/30/2024 8:00 PM EDT Procedure visit [facility] [address] [place] [address] [address] [place] [address] 10/31/2024 1:00 PM EDT Telemedicine [facility] at [facility] 240 [facility] [address] [place] [address] Ronald Mills MD 240 [facility] A1 [place] [address] documented as of this encounter Procedures Procedure [...] as of this encounter Care Teams Housekeeping Aid Relationship Specialty Start Date End Date Caitlyn Bowie MD [address] [place] [address] [address] PCP - General Internal Medicine 05/06/21 documented as of this encounter
--- OUTSIDE RECORDS SUMMARY | 2024-09-04 17:33 | XMS_ITS | Encounter Summary ---
Author Organization [facility] Address [address] [place] [address] Care Team Providers Care Trencher Driver Name Role Phone Caitlyn Bowie MD Primary Care Provider +1- [phone] Encounter Details Date Type Department Care Team (Late st Contact Info) Description 05/05/2021 Scanned Document INTERFACE DEFAULT [address] [place] [address] System, Provider Not In Social History Tobacco [...] Description 09/30/2024 8:00 PM EDT Procedure visit [facility] [address] [place] [address] [address] [place] [address] 10/31/2024 1:00 PM EDT Telemedicine [facility] 240 [facility] [address] [place] [address] Ronald Mills MD 240 [facility] A1 [place] [address] documented as of this encounter Visit Diagnoses Not on filedocumented in this encounter Additional Health Concerns Infection Onset Date Last Indicated Resolved Time COVID-19 03/05/2022 03/05/2022 03/15/2022 7:18 PM EDT Assessment Noted Time PHQ-9 Depression Total Score: 2 11/07/19 19 2:06 PM EDT documented as of this encounter Care Teams Trencher Driver Relationship Specialty Start Date End Date Caitlyn Bowie MD [address] [address] PCP - General Internal Medicine 05/06/21 documented as of this encounter
--- OUTSIDE RECORDS SUMMARY | 2024-09-04 17:33 | XMS_ITS | Encounter Summary ---
Author Organization [facility] Address [address] [place] [address] Care Team Providers Care Pulpwood Contractor Name Role Phone Caitlyn Bowie MD Primary Care Provider +1- [phone] Encounter Details Date Type Department Care Team (Late st Contact Info) Description 04/24/2021 Scanned Document INTERFACE DEFAULT [address] [place] [address] System, Provider Not In Social History Tobacco [...] Description 09/30/2024 8:00 PM EDT Procedure visit [facility] [address] [place] [address] [address] [place] [address] 10/31/2024 1:00 PM EDT Telemedicine Cancer Center at [facility] 240 [facility] [address] [place] [address] Ronald Mills MD 240 [facility] A1 [place] [address] documented as of this encounter Procedures Procedure [...] documented as of this encounter Care Teams Pulpwood Contractor Relationship Specialty Start Date End Date Caitlyn Bowie MD [address] [address] PCP - General Internal Medicine 05/06/21 documented as of this encounter
--- OUTSIDE RECORDS SUMMARY | 2024-09-04 17:33 | XMS_ITS | Encounter Summary ---
Author Organization [facility] Address [address] [place] [address] Care Team Providers Care Automotive Sales Representative Name Role Phone Caitlyn Bowie MD Primary Care Provider +1- [phone] Encounter Details Date Type Department Care Team (Late st Contact Info) Description 12/23/2022 Scanned Document INTERFACE DEFAULT [address] [place] [address] System, Provider Not In Social History Tobacco [...] Description 09/30/2024 8:00 PM EDT Procedure visit [facility] [address] [place] [address] [address] [place] [address] 10/31/2024 1:00 PM EDT Telemedicine Cancer Center at [facility] 240 [facility] [address] [place] [address] Ronald Mills MD 240 [facility] A1 [place] [address] documented as of this encounter Visit Diagnoses Not on filedocumented in this encounter Additional Health Concerns Assessment Noted Time PHQ-9 Depression Total Score: 2 11/07/19 19 2:06 PM EDT documented as of this encounter Care Teams Automotive Sales Representative Relationship Specialty Start Date End Date Caitlyn Bowie MD [address] [address] PCP - General Internal Medicine 05/06/21 documented as of this encounter
--- OUTSIDE RECORDS SUMMARY | 2024-09-04 17:33 | XMS_ITS | Encounter Summary ---
Author Organization [facility] Address [address] [place] [address] Care Team Providers Care Child Care Provider Name Role Phone Caitlyn Bowie MD Primary Care Provider +1- [phone] Encounter Details Date Type Department Care Team (Late st Contact Info) Description 09/07/2021 Scanned Document INTERFACE DEFAULT [address] [place] [address] System, Provider Not In Social History Tobacco [...] Description 09/30/2024 8:00 PM EDT Procedure visit [facility] [address] [place] [address] [address] [place] [address] 10/31/2024 1:00 PM EDT Telemedicine Cancer Center at [facility] 240 [facility] [address] [place] [address] Ronald Mills MD 240 [facility] A1 [place] [address] documented as of this encounter Procedures Procedure [...] of this encounter Care Teams Child Care Provider Relationship Specialty Start Date End Date Caitlyn Bwoie MD [facility] [address] [address] PCP - General Internal Medicine 05/06/21 documented as of this encounter
--- OUTSIDE RECORDS SUMMARY | 2024-09-04 17:33 | XMS_ITS | Encounter Summary ---
Author Organization [facility] Address [address] [place] [address] Care Team Providers Care Nurse Reviewer Name Role Phone Caitlyn Bowie MD Primary Care Provider +1- [phone] Encounter Details Date Type Department Care Team (Late st Contact Info) Description 07/01/2019 Scanned Document Onco-Oncology Program at [address] [place] [address] Norma Renee MD [address] [place] [address] 2 [place] [address] Social History Tobacco Use Types Packs/Day Years [...] Description 09/30/2024 8:00 PM EDT Procedure visit [facility] [address] [place] [address] 10/31/2024 1:00 PM EDT Telemedicine Cancer Center at [address] [place], [place] [address] Ronald Mills MD 240 [facility] Max [address] [place] [address] documented as of this encounter Visit Diagnoses Not on filedocumented in this encounter Additional Health Concerns Infection Onset Date Last Indicated Resolved Time COVID-19 03/05/2022 03/05/2022 03/15/2022 7:18 PM EDT Assessment Noted Time PHQ-9 Depression Total Score: 2 11/07/19 19 2:06 PM EDT documented as of this encounter Care Teams Nurse Reviewer Relationship Specialty Start Date End Date Caitlyn Bowie MD 3400 [facility] 1 [place] [address] PCP - General Internal Medicine 05/06/21 Henry Kelly MD Pulmonary Department [address] [place] [address], [address] [place] [address] Physician Pulmonary Disease 09/06/17 06/22/20 documented as of this encounter
--- OUTSIDE RECORDS SUMMARY | 2024-09-04 17:33 | XMS_ITS | Encounter Summary ---
Author Organization [facility] and [facility] Address [address] [place] [address] Care Team Providers Care Waiter/Waitress Formal Name Role Phone Caitlyn Bowie MD Primary Care Provider +1- [phone] Encounter Details Date Type Department Care Team (Late st Contact Info) Description 07/28/2022 Scanned Document Onco-Oncology Program at [address] [address] Norma Renee MD [address] [place] [address] 2 [place] [phone] Social History Tobacco Use Types Packs/Day Years [...] Description 09/30/2024 8:00 PM EDT Procedure visit [facility] [address] [place] [phone] 10/31/2024 1:00 PM EDT Telemedicine Cancer Center at [address] [place] [address] Ronald Mills MD [address] [place] [address] documented as of this encounter Visit Diagnoses Not on filedocumented in this encounter Additional Health Concerns Assessment Noted Time PHQ-9 Depression Total Score: 2 11/07/19 19 2:06 PM EDT documented as of this encounter Care Teams Waiter/Waitress Formal Relationship Specialty Start Date End Date Caitlyn Bowie MD [address] [address] PCP - General Internal Medicine 05/06/21 documented as of this encounter
--- OUTSIDE RECORDS SUMMARY | 2024-09-04 17:33 | XMS_ITS | Encounter Summary ---
Author Organization [facility] and [facility] Address [address] [place] [address] Care Team Providers Care Certified Ophthalmic Surgical Assistant Name Role Phone Caitlyn Bowie MD Primary Care Provider +1- [phone] Encounter Details Date Type Department Care Team (Late st Contact Info) Description 07/12/2019 Scanned Document Onco-Oncology Program at [address] [place] [address] Norma Renee MD [address] [place] [address] 2 [place] [phone] Social History Tobacco Use Types Packs/Day Years [...] Description 09/30/2024 8:00 PM EDT Procedure visit [facility] [address] [place] [address] 10/31/2024 1:00 PM EDT Telemedicine Cancer Center at [address] [place], [place] [address] Ronald Mills MD 240 [facility] Max [address]1 [place] [address] documented as of this encounter Visit Diagnoses Not on filedocumented in this encounter Additional Health Concerns Infection Onset Date Last Indicated Resolved Time COVID-19 03/05/2022 03/05/2022 03/15/2022 7:18 PM EDT Assessment Noted Time PHQ-9 Depression Total Score: 2 11/07/19 19 2:06 PM EDT documented as of this encounter Care Teams Certified Ophthalmic Surgical Assistant Relationship Specialty Start Date End Date Caitlyn Bowie MD 3400 [facility] 1 [place] [address] PCP - General Internal Medicine 05/06/21 Henry Kelly MD Pulmonary Department [address] [place] [address], [address] [place] [address] Physician Pulmonary Disease 09/06/17 06/22/20 documented as of this encounter
--- OUTSIDE RECORDS SUMMARY | 2024-09-04 17:33 | XMS_ITS | Encounter Summary ---
Author Organization [facility] and [facility] Address [address] [place] [address] Care Team Providers Care Touch Up Edger Name Role Phone Caitlyn Bowie MD Primary Care Provider +1- [phone] Encounter Details Date Type Department Care Team (Latest Contact Info) Description 04/15/2013 Transcribed Orders [facility] [address] [place] [address] Tian Atwood MD [address] [facility] [address] [place] [address] Unspecified hypothyroidism (Primary Dx) Social [...] Description 09/30/2024 8:00 PM EDT Procedure visit [facility] [address] [place] [address] [address] [place] [address] 10/31/2024 1:00 PM EDT Telemedicine Cancer Center at [facility] 240 [facility] Building [address] [place], [place] [address] Ronald Mills MD 240 [facility] Max [address] [place] [address] documented as of this encounter Results * Copper, serum total (YH) (04/15/2013 4:31 PM EDT) Copper, Serum Total SEE BELOW [facility] Comment: Test ?Result ? Flag ??Unit ?RefValue Copper, S ? 1.35 ? mcg/mL ??0.75-1.45 04/15/2013 4:31 PM EDT us Tian Atwood MD LAB BLOOD ORDERABLES Final R esult [facility] [address] [place] [address] documented in this encounter Visit Diagnoses Diagnosis Unspecified hypothyroidism- Primary documented in this encounter Additional Health Concerns Infection Onset Date Last Indicated Resolved Time COVID-19 03/05/2022 03/05/2022 03/15/2022 7:18 PM EDT documented as of this encounter Care Teams Touch Up Edger Relationship Specialty Start Date End Date Caitlyn Bowie MD [address] [facility] 1 [place] [address] PCP - General Internal Medicine 05/06/21 Henry Kelly MD Pulmonary Department 175 [facility], [address] [place], [place] [id number] Physician Pulmonary Disease 09/06/17 06/22/20 documented as of this encounter
--- OUTSIDE RECORDS SUMMARY | 2024-09-04 17:33 | XMS_ITS | Encounter Summary ---
Author Organization [facility] and [facility] Address [address] [place] [address] Care Team Providers Care Copyright Expert Name Role Phone Caitlyn Bowie MD Primary Care Provider +1- [phone] Encounter Details Date Type Department Care Team (Late st Contact Info) Description 07/22/2021 Scanned Document INTERFACE DEFAULT [address] [place] [address] System, Provider Not In Social History Tobacco [...] Description 09/30/2024 8:00 PM EDT Procedure visit [facility] [address] [place] [address] [address] [place] [address] 10/31/2024 1:00 PM EDT Telemedicine Cancer [facility] at [facility] 240 [facility] [address] [place] [address] Ronald Mills MD 240 [facility] A1 [place] [address] documented as of this encounter Procedures Procedure [...] documented as of this encounter Care Teams Copyright Expert Relationship Specialty Start Date End Date Caitlyn Bowie MD [address] [address] PCP - General Internal Medicine 05/06/21 documented as of this encounter
--- OUTSIDE RECORDS SUMMARY | 2024-09-04 17:33 | XMS_ITS | Encounter Summary ---
Author Organization [facility] and [facility] Address [address] [place] [address] Care Team Providers Care Daycare Director Name Role Phone Caitlyn Bowie MD Primary Care Provider +1- [phone] Encounter Details Date Type Department Care Team (Late st Contact Info) Description 06/27/2019 Scanned Document Onco-Oncology Program at [address] [place] [address] Norma Renee MD [address] [place] [address] 2 [place] [phone] Social History Tobacco Use Types Packs/Day Years [...] Description 09/30/2024 8:00 PM EDT Procedure visit [facility] [address] [place] [address] 10/31/2024 1:00 PM EDT Telemedicine Cancer Center at [address] [place], [place] [address] Ronald Mills MD 240 [facility] Max [address] [place] [address] documented as of this encounter Visit Diagnoses Not on filedocumented in this encounter Additional Health Concerns Infection Onset Date Last Indicated Resolved Time COVID-19 03/05/2022 03/05/2022 03/15/2022 7:18 PM EDT Assessment Noted Time PHQ-9 Depression Total Score: 2 11/07/19 19 2:06 PM EDT documented as of this encounter Care Teams Daycare Director Relationship Specialty Start Date End Date Caitlyn Bowie MD 3400 [facility] 1 [place] [address] PCP - General Internal Medicine 05/06/21 Henry Kelly MD Pulmonary Department [address] [place] [address], [address] [place] [address] Physician Pulmonary Disease 09/06/17 06/22/20 documented as of this encounter
--- OUTSIDE RECORDS SUMMARY | 2024-09-04 17:33 | XMS_ITS | Encounter Summary ---
Author Organization [facility] and [facility] Address [address] [place] [address] Care Team Providers Care It Business Process Architect Name Role Phone Caitlyn Bowie MD Primary Care Provider +1- [phone] Encounter Details Date Type Department Care Team (Late st Contact Info) Description 06/21/2012 Abstract Head & Neck Cancers Program at [address] [address] Mikel Lloyd MD [address] [place] [phone] (Fax) Social History Tobacco Use Types Packs/Day [...] Description 09/30/2024 8:00 PM EDT Procedure visit [facility] [address] [place] [address] [address] [place] [address] 10/31/2024 1:00 PM EDT Telemedicine Cancer Center at [address] [place] [address] Ronald Mills MD [address] [place] [address] [address] [place] [address] documented as of this encounter Visit Diagnoses Not on filedocumented in this encounter Additional Health Concerns Infection Onset Date Last Indicated Resolved Time COVID-19 03/05/2022 03/05/2022 03/15/2022 7:18 PM EDT documented as of this encounter Care Teams It Business Process Architect Relationship Specialty Start Date End Date Caitlyn Bowie MD 3400 [facility] 1 [place] [address] PCP - General Internal Medicine 05/06/21 Henry Kelly MD Pulmonary Department 175 [facility], [address] [place] [address] Physician Pulmonary Disease 09/06/17 06/22/20 documented as of this encounter
--- OUTSIDE RECORDS SUMMARY | 2024-09-04 17:33 | XMS_ITS | Encounter Summary ---
Author Organization [facility] and [facility] Address [address] [place] [address] Care Team Providers Care China And Silverware Salesperson Name Role Phone Caitlyn Bowie MD Primary Care Provider +1- [phone] Encounter Details Date Type Department Care Team (Late st Contact Info) Description 09/02/2021 Scanned Document INTERFACE DEFAULT [address] [place] [address] System, Provider Not In Social History Tobacco [...] Description 09/30/2024 8:00 PM EDT Procedure visit [facility] [address] [place] [address] [address] [place] [address] 10/31/2024 1:00 PM EDT Telemedicine Cancer Center at [facility] 240 [facility] [address] [place] [address] Ronald Mills MD 240 [facility] A1 [place] [address] documented as of this encounter Procedures Procedure [...] documented as of this encounter Care Teams China And Silverware Salesperson Relationship Specialty Start Date End Date Caitlyn Bowie MD [facility] [address] [address] PCP - General Internal Medicine 05/06/21 documented as of this encounter
--- OUTSIDE RECORDS SUMMARY | 2024-09-04 17:34 | XMS_ITS | Encounter Summary ---
Author Organization [facility] Address [address] [place] [address] Care Team Providers Care Manager Marketing Name Role Phone Caitlyn Bowie MD Primary Care Provider +1- [phone] Encounter Details Date Type Department Care Team (Late st Contact Info) Description 01/02/2024 Scanned Document INTERFACE DEFAULT [address] [place] [address] System, Provider Not In Social History Tobacco [...] Description 09/30/2024 8:00 PM EDT Procedure visit [facility] [address] [place] [address] [address] [place] [address] 10/31/2024 1:00 PM EDT Telemedicine Cancer Center at [facility] 240 [facility] [address] [place] [address] Ronald Mills MD 240 [facility] A1 [place] [address] documented as of this encounter Procedures Procedure [...] as of this encounter Care Teams Manager Marketing Relationship Specialty Start Date End Date Caitlyn Bowie MD [facility] [address] [address] PCP - General Internal Medicine 05/06/21 documented as of this encounter
--- OUTSIDE RECORDS SUMMARY | 2024-09-04 17:34 | XMS_ITS | Encounter Summary ---
Author Organization [facility] Address [address] [place] [address] Care Team Providers Care Shipping Support Name Role Phone Caitlyn Bowie MD Primary Care Provider +1- [phone] Encounter Details Date Type Department Care Team (Late st Contact Info) Description 05/02/2022 Scanned Document INTERFACE DEFAULT [address] [place] [address] System, Provider Not In Social History Tobacco [...] Description 09/30/2024 8:00 PM EDT Procedure visit [facility] [address] [place] [address] [address] [place] [address] 10/31/2024 1:00 PM EDT Telemedicine [facility] at [facility] 240 [facility] [address] [place] [address] Ronald Mills MD 240 [facility] A1 [place] [address] documented as of this encounter Procedures Procedure [...] documented as of this encounter Care Teams Shipping Support Relationship Specialty Start Date End Date Caitlyn Bowie MD [facility] [address] [address] PCP - General Internal Medicine 05/06/21 documented as of this encounter
--- OUTSIDE RECORDS SUMMARY | 2024-09-04 17:34 | XMS_ITS | Encounter Summary ---
Author Organization [facility] Address [address] [place] [address] Care Team Providers Care Electronics Computer Mechanic Name Role Phone Caitlyn Bowie MD Primary Care Provider +1- [phone] Encounter Details Date Type Department Care Team (Late st Contact Info) Description 04/20/2023 Scanned Document INTERFACE DEFAULT [address] [place] [address] System, Provider Not In Social History Tobacco [...] Description 09/30/2024 8:00 PM EDT Procedure visit [facility] [address] [place] [address] [address] [place] [address] 10/31/2024 1:00 PM EDT Telemedicine Cancer Center at [facility] 240 [facility] [address] [place] [address] Ronald Mills MD 240 [facility] A1 [place] [address] documented as of this encounter Procedures Procedure [...] documented as of this encounter Care Teams Electronics Computer Mechanic Relationship Specialty Start Date End Date Caitlyn Bowie MD [address] [address] PCP - General Internal Medicine 05/06/21 documented as of this encounter
--- OUTSIDE RECORDS SUMMARY | 2024-09-04 17:34 | XMS_ITS | Encounter Summary ---
Author Organization [facility] and [facility] Address [address] [place] [address] Care Team Providers Care Band Sawmill Operator Name Role Phone Caitlyn Bowie MD Primary Care Provider +1- [phone] Encounter Details Date Type Department Care Team (Late st Contact Info) Description 04/26/2017 Scanned Document Cardiovascular Medicine at [address] [address] System, Provider Not In Social History Tobacco [...] Description 09/30/2024 8:00 PM EDT Procedure visit [facility] [address] [place] [address] [address] [place] [address] 10/31/2024 1:00 PM EDT Telemedicine [facility] at [facility] 240 [facility] Building [address] [place], [place] [address] Ronald [place] MD 240 [facility] A1 [place] [address] documented as of this [...] documented as of this encounter Care Teams Band Sawmill Operator Relationship Specialty Start Date End Date Caitlyn Bowie MD 3400 [facility] Max 1 [place] [address] PCP - General Internal Medicine 05/06/21 Henry Kelyl MD Pulmonary Department 175 [facility], [address] [place] [address] Physician Pulmonary Disease 09/06/17 06/22/20 documented as of this encounter
--- OUTSIDE RECORDS SUMMARY | 2024-09-04 17:34 | XMS_ITS | Encounter Summary ---
Author Organization [facility] Address [address] [place] [address] Care Team Providers Care Guest Relations Agent Name Role Phone Caitlyn Bowie MD Primary Care Provider +1- [phone] Encounter Details Date Type Department Care Team (Late st Contact Info) Description 12/04/2018 Scanned Document [facility] Health Information Management [address] [place] [address] External, Provider Social History Tobacco Use Types [...] Description 09/30/2024 8:00 PM EDT Procedure visit [facility] [address] [place] [address] [address] [place] [address] 10/31/2024 1:00 PM EDT Telemedicine [facility] 240 [facility] [address] [place], [place] [address] Ronald Mills MD 240 [facility] A1 [place] [address] documented as of this encounter Visit Diagnoses Not on filedocumented in this encounter Additional Health Concerns Infection Onset Date Last Indicated Resolved Time COVID-19 03/05/2022 03/05/2022 03/15/2022 7:18 PM EDT Assessment Noted Time PHQ-9 Depression Total Score: 2 11/07/19 19 2:06 PM EDT documented as of this encounter Care Teams Guest Relations Agent Relationship Specialty Start Date End Date Caitlyn Bowie MD 3400 [facility] 1 [place] [address] PCP - General Internal Medicine 05/06/21 Henry Kelly MD Pulmonary Department 175 [facility], [address] [place] [address] Physician Pulmonary Disease 09/06/17 06/22/20 documented as of this encounter
--- OUTSIDE RECORDS SUMMARY | 2024-09-04 17:34 | XMS_ITS | Encounter Summary ---
Author Organization [facility] Address [address] [place] [address] Care Team Providers Care Parachutist/Combatant Diver Qualified Name Role Phone Caitlyn Bowie MD Primary Care Provider +1- [phone] Encounter Details Date Type Department Care Team (Late st Contact Info) Description 03/01/2017 Scanned Document Onco-Oncology Program at [address] [address] Norma Renee MD [address] [place] [phone] Social History Tobacco Use Types Packs/Day Years [...] Description 09/30/2024 8:00 PM EDT Procedure visit [facility] [address] [place] [address] [address] [place] [address] 10/31/2024 1:00 PM EDT Telemedicine Cancer Center at [address] [place], [place] [address] Ronald Mills MD 240 [facility] Max [address]1 [place] [address] documented as of this encounter Visit Diagnoses Not on filedocumented in this encounter Additional Health Concerns Infection Onset Date Last Indicated Resolved Time COVID-19 03/05/2022 03/05/2022 03/15/2022 7:18 PM EDT documented as of this encounter Care Teams Parachutist/Combatant Diver Qualified Relationship Specialty Start Date End Date Caitlyn Bowie MD 3400 [facility] 1 [place] [address] PCP - General Internal Medicine 05/06/21 Henry Kelly MD Pulmonary Department [address] [place] [address], [address] [place] [address] Physician Pulmonary Disease 09/06/17 06/22/20 documented as of this encounter
--- OUTSIDE RECORDS SUMMARY | 2024-09-04 17:34 | XMS_ITS | Encounter Summary ---
Author Organization [facility] Address [address] [place] [address] Care Team Providers Care Ip Network Architect Name Role Phone Caitlyn Bowie MD Primary Care Provider +1- [phone] Encounter Details Date Type Department Care Team (Late st Contact Info) Description 08/28/2015 Scanned Document [facility] Health Information Management [address] [place] [address] External, Provider Social History Tobacco Use Types [...] Description 09/30/2024 8:00 PM EDT Procedure visit [facility] [address] [place] [address] [address] [place] [address] 10/31/2024 1:00 PM EDT Telemedicine [facility] at [facility] 240 [facility] Building [address] [place], [place] [address] Ronald Mills MD 240 [facility] A1 [place] [address] documented as of this encounter Visit Diagnoses Not on filedocumented in this encounter Additional Health Concerns Infection Onset Date Last Indicated Resolved Time COVID-19 03/05/2022 03/05/2022 03/15/2022 7:18 PM EDT documented as of this encounter Care Teams Ip Network Architect Relationship Specialty Start Date End Date Caitlyn Bowie MD 3400 [facility] Max 1 [place] [address] PCP - General Internal Medicine 05/06/21 Henry Kelly MD Pulmonary Department 175 [facility], [address] [place] [address] Physician Pulmonary Disease 09/06/17 06/22/20 documented as of this encounter
--- OUTSIDE RECORDS SUMMARY | 2024-09-04 17:34 | XMS_ITS | Encounter Summary ---
Author Organization [facility] Address [address] [place] [address] Care Team Providers Care Brazer Crawler Torch Name Role Phone Caitlyn Bowie MD Primary Care Provider +1- [phone] Encounter Details Date Type Department Care Team (Late st Contact Info) Description 06/21/2022 Scanned Document INTERFACE DEFAULT [address] [place] [address] System, Provider Not In Social History Tobacco [...] Description 09/30/2024 8:00 PM EDT Procedure visit [facility] [address] [place] [address] [address] [place] [address] 10/31/2024 1:00 PM EDT Telemedicine [facility] at [facility] 240 [facility] [address] [place] [address] Ronald Mills MD 240 [facility] A1 [place] [address] documented as of this encounter Procedures Procedure [...] documented as of this encounter Care Teams Brazer Crawler Torch Relationship Specialty Start Date End Date Caitlyn Bowie MD [address] [address] PCP - General Internal Medicine 05/06/21 documented as of this encounter
--- OUTSIDE RECORDS SUMMARY | 2024-09-04 17:34 | XMS_ITS | Encounter Summary ---
Author Organization [facility] Address [address] [place] [phone] Care Team Providers Care Consumer Relations Specialist Name Role Phone Caitlyn Bowie MD Primary Care Provider +1- [phone] Encounter Details Date Type Department Care Team (Late st Contact Info) Description 09/28/2015 Scanned Document [facility] Health Information Management [address] [place] [phone] External, Provider Social History Tobacco Use Types [...] Description 09/30/2024 8:00 PM EDT Procedure visit [facility] [address] [place] [address] [address] [place] [address] 10/31/2024 1:00 PM EDT Telemedicine Cancer Center at [facility] 240 [facility] Building [address] [place], [place] [address] Ronald Mills MD 240 [facility] A1 [place] [address] documented as of this encounter Procedures Procedure Name Priority Date/Time Associated Diagnosis Comments LAB SCAN Routine 09/09/2015 documented in this encounter Results * Lab Scan (09/09/2015) Blood specimen (specimen) us Provider External LAB BLOOD ORDERABLES Final Res ult Performing Organization Address City/State/[facility] Co de Phone Number [facility] documented in this encounter Visit Diagnoses Not on filedocumented in this encounter Additional Health Concerns Infection Onset Date Last Indicated Resolved Time COVID-19 03/05/2022 03/05/2022 03/15/2022 7:18 PM EDT documented as of this encounter Care Teams Consumer Relations Specialist Relationship Specialty Start Date End Date Caitlyn Bowie MD 3400 [facility] Max 1 [place] [address] PCP - General Internal Medicine 05/06/21 Henry Kelly MD Pulmonary Department 175 [facility], [address] [place] [address] Physician Pulmonary Disease 09/06/17 06/22/20 documented as of this encounter
--- OUTSIDE RECORDS SUMMARY | 2024-09-04 17:34 | XMS_ITS | Encounter Summary ---
Author Organization [facility] Address [address] [place] [address] [address] [place] [address] Phone Care Team Providers Care Division Superintendent Name Role Phone Caitlyn Bowie MD Primary Care Provider +1- [phone] Encounter Details Date Type Department Care Team (Late st Contact Info) Description 08/30/2024 Abstract [facility] [address] [place] [address] 202 [place] [address] Adalgisa Whitney MD [address] [place] [address] 202 [place] [address] Social History Tobacco Use Types Packs/Day Years [...] Description 09/30/2024 8:00 PM EDT Procedure visit [facility] [address] [place] [address] 10/31/2024 1:00 PM EDT Telemedicine Cancer Center at [address] [place] [address] Ronald Mills MD [address] [place] [address] documented as of this encounter Visit Diagnoses Not on filedocumented in this encounter Additional Health Concerns Assessment Noted Time PHQ-9 Depression Total Score: 2 11/07/19 19 2:06 PM EDT documented as of this encounter Care Teams Division Superintendent Relationship Specialty Start Date End Date Caitlyn Bowie MD [address] [address] PCP - General Internal Medicine 05/06/21 documented as of this encounter
--- OUTSIDE RECORDS SUMMARY | 2024-09-04 17:34 | XMS_ITS | Encounter Summary ---
Author Organization [facility] and [facility] Address [address] [place] [address] Care Team Providers Care Cutting And Creasing Press Operator Name Role Phone Caitlyn Bowie MD Primary Care Provider +1- [phone] Encounter Details Date Type Department Care Team (Late st Contact Info) Description 04/19/2023 Scanned Document INTERFACE DEFAULT [address] [place] [address] System, Provider Not In Social History Tobacco [...] Description 09/30/2024 8:00 PM EDT Procedure visit [facility] [address] [place] [address] [address] [place] [address] 10/31/2024 1:00 PM EDT Telemedicine [facility] at [facility] [address] [facility] [address] [place] [address] Ronald Mills MD 240 [facility] A1 [place] [address] documented as of this encounter Procedures Procedure [...] documented as of this encounter Care Teams Cutting And Creasing Press Operator Relationship Specialty Start Date End Date Caitlyn Bowie MD [address] [address] PCP - General Internal Medicine 05/06/21 documented as of this encounter
--- OUTSIDE RECORDS SUMMARY | 2024-09-04 17:34 | XMS_ITS | Encounter Summary ---
Author Organization [facility] and [facility] Address [address] [place] [address] Care Team Providers Care Target Trimmer Name Role Phone Caitlyn Bowie MD Primary Care Provider +1- [phone] Encounter Details Date Type Department Care Team (Late st Contact Info) Description 09/09/2015 Scanned Document [facility] Health Information Management [address] [place] [address] External, Provider Social History Tobacco Use Types [...] Description 09/30/2024 8:00 PM EDT Procedure visit [facility] [address] [place] [address] [address] [place] [address] 10/31/2024 1:00 PM EDT Telemedicine Cancer Center at [facility] 240 [facility] Building [address] [place], [place] [address] Ronald Mills MD 240 [facility] [address]1 [place] [address] documented as of this encounter Procedures Procedure Name Priority Date/Time Associated Diagnosis Comments LAB SCAN Routine 09/09/2015 documented in this encounter Results * Lab Scan (09/09/2015) Blood specimen (specimen) us Provider External LAB BLOOD ORDERABLES Final Res ult Performing Organization Address City/State/[facility] Co de Phone Number [facility] documented in this encounter Visit Diagnoses Not on filedocumented in this encounter Additional Health Concerns Infection Onset Date Last Indicated Resolved Time COVID-19 03/05/2022 03/05/2022 03/15/2022 7:18 PM EDT documented as of this encounter Care Teams Target Trimmer Relationship Specialty Start Date End Date Caitlyn Bowie MD 3400 [facility] 1 [place] [address] PCP - General Internal Medicine 05/06/21 Henry Kelly MD Pulmonary Department 175 [facility], [address] [place] [address] Physician Pulmonary Disease 09/06/17 06/22/20 documented as of this encounter
--- OUTSIDE RECORDS SUMMARY | 2024-09-04 17:34 | XMS_ITS | Encounter Summary ---
Author Organization [facility] and [facility] Address [address] [place] [address] Care Team Providers Care Clerical Clerk Name Role Phone Caitlyn Bowie MD Primary Care Provider +1- [phone] Encounter Details Date Type Department Care Team (Late st Contact Info) Description 06/20/2022 Scanned Document INTERFACE DEFAULT [address] [place] [address] System, Provider Not In Social History Tobacco [...] 09/30/2024 8:00 PM EDT Procedure visit [facility] [address] [place] [address] [address] [place] [address] 10/31/2024 1:00 PM EDT Telemedicine Cancer Center at [facility] 240 [facility] [address] [place] [address] Ronald Mills MD 240 [facility] A1 [place] [address] documented as of this encounter Procedures Procedure [...] documented as of this encounter Care Teams Clerical Clerk Relationship Specialty Start Date End Date Caitlyn Bowie MD [facility] [address] [address] PCP - General Internal Medicine 05/06/21 documented as of this encounter
--- OUTSIDE RECORDS SUMMARY | 2024-09-04 17:34 | XMS_ITS ---
Author Organization [facility] Address [address] [facility] [address] [place] [address] Care Team Providers Care Litigation Specialist Name Role Phone EVELIN RAMSAY Primary Care Provider Yenny Hou Unavailable [phone] Allergies Allergen (clinical drug ingredient) Drug/Non Drug [...] 1/2 tab prn during the day [facility] 06/10/2014 Active traZODone HCl 50MG 1 ORAL at bedtime fo r -3 [facility] 06/10/2014 Active Meclizine HCl 25 MG 1 tablet as needed Orally [facility] 06/10/2014 Active Advair HFA 230-21MCG/ACT 2 [...] 25MCG 1 ORAL daily for -3 [facility] 06/10/2014 Active Singulair 10 MG 1 [...] use: Nonsmoker Vital Signs Height 63 in 07/18/2024 Weight 126 lbs 07/18/2024 BMI 22.32 kg/m2 07/18/2024 Blood pressure systolic 102 mm Hg 07/18/19 25 Blood pressure diastolic 62 mm Hg 025 Temperature 97.7 degrees Fahrenheit 07/18/19 25 Encounters Encounter Location Date Provider Diagnosis [address] [place] [address] 07/18/2024 Yenny Elizalde Encounter for screening mammogram [...] Notes * TONIE WATSONOB:1945 (79 yo F)Acc No.[id number]:07/18/2024 PROGRESS NOTES Patient:?CINDA WATSON Appointment Provider:?Yenny doan M.D. :1945???Age:79 Y???Sex:Female D ate:07/18/2024 Address:[address] [place] [address] Pcp:EVELIN RAMSAY Subjective: * Chief Complaints: * ???LT BREAST PAIN * HPI: ???New/Follow-up Patient Consult:? PAT C/O LEFT BREAST DISCOMFORT OF A FEW DAYS DURATION.? NO NIPPLE DISCHARGE, NO PALPABLE MASSES.? HER LAST MAMMOGRAM DONE IN AUG 2023 WAS NORMAL. * ROS:?general:?no?chest pain.?no?palpitations.?no?headache.?no?cough.?no?shortness of breath.?no?fever.?no?unexplained weight loss.?no?nausea/vomiting.?no?change in bowel movements.?no blood in stool.?no?genitourinary complaints.?no?skin complaints.? * Medical History:? * Discharge Planner History:?/ Para?2/2.?Sexual activity?not currently sexually active.?Last Pap [...] Elizalde M.D. Date:?07/18/2024 Generated for Arely paige/Sebastian/Zacheryitting on:?09/04/2024 05:34 PM EST History and Physical Notes * [...]
--- OUTSIDE RECORDS SUMMARY | 2024-09-04 17:34 | XMS_ITS | Encounter Summary ---
Author Organization [facility] and [facility] Address [address] [place] [address] Care Team Providers Care Shipboard Intelligence Analyst Name Role Phone Caitlyn Bowie MD Primary Care Provider +1- [phone] Encounter Details Date Type Department Care Team (Late st Contact Info) Description 06/08/2022 Scanned Document INTERFACE DEFAULT [address] [place] [address] System, Provider Not In Social History Tobacco [...] Description 09/30/2024 8:00 PM EDT Procedure visit [facility] [address] [place] [address] [address] [place] [address] 10/31/2024 1:00 PM EDT Telemedicine Cancer Center at [facility] 240 [facility] [address] [place] [address] Ronald Mills MD 240 [facility] A1 [place] [address] documented as of this encounter Procedures Procedure [...] documented as of this encounter Care Teams Shipboard Intelligence Analyst Relationship Specialty Start Date End Date Caitlyn Bowie MD [address] [address] PCP - General Internal Medicine 05/06/21 documented as of this encounter
--- OUTSIDE RECORDS SUMMARY | 2024-09-04 17:34 | XMS_ITS | Encounter Summary ---
Author Organization [facility] and [facility] Address [address] [place] [address] Care Team Providers Care Mutuel Department Manager Name Role Phone Caitlyn Bowie MD Primary Care Provider +1- [phone] Encounter Details Date Type Department Care Team (Late st Contact Info) Description 04/27/2017 Scanned Document [facility] Health Information Management [address] [place] [address] External, Provider Social History Tobacco Use Types [...] Description 09/30/2024 8:00 PM EDT Procedure visit [facility] [address] [place] [address] [address] [place] [address] 10/31/2024 1:00 PM EDT Telemedicine Cancer Center at [facility] 240 [facility] Building [address] [place], [place] [address] Ronald Mills MD 240 [facility] A1 [place] [address] documented as of this encounter Visit Diagnoses Not on filedocumented in this encounter Additional Health Concerns Infection Onset Date Last Indicated Resolved Time COVID-19 03/05/2022 03/05/2022 03/15/2022 7:18 PM EDT documented as of this encounter Care Teams Mutuel Department Manager Relationship Specialty Start Date End Date Caitlyn Bowie MD 3400 [facility] Max 1 [place] [address] PCP - General Internal Medicine 05/06/21 Henry Kelly MD Pulmonary Department 175 [facility], [address] [place] [address] Physician Pulmonary Disease 09/06/17 06/22/20 documented as of this encounter
--- OUTSIDE RECORDS SUMMARY | 2024-09-04 17:34 | XMS_ITS | Encounter Summary ---
Author Organization [facility] Address [address] [place] [address] Care Team Providers Care Body Shop Floorperson Name Role Phone Caitlyn Bowie MD Primary Care Provider +1- [phone] Encounter Details Date Type Department Care Team (Late st Contact Info) Description 05/17/2023 Scanned Document INTERFACE DEFAULT [address] [place] [address] System, Provider Not In Social History [...] Description 09/30/2024 8:00 PM EDT Procedure visit [facility] [address] [place] [address] [address] [place] [address] 10/31/2024 1:00 PM EDT Telemedicine [facility] at [facility] 240 [facility] [address] [place] [address] Ronald Mills MD 240 [facility] [address]1 [place] [address] documented as of this encounter Procedures Procedure [...] documented as of this encounter Care Teams Body Shop Floorperson Relationship Specialty Start Date End Date Caitlyn Bowie MD [address] [address] PCP - General Internal Medicine 05/06/21 documented as of this encounter
--- OUTSIDE RECORDS SUMMARY | 2024-09-04 17:34 | XMS_ITS | Encounter Summary ---
Author Organization [facility] and [facility] Address 20 [place] [address] Care Team Providers Care Mononitrotoluene Operator Name Role Phone Caitlyn Bowie MD Primary Care Provider +1- [phone] Encounter Details Date Type Department Care Team (Late st Contact Info) Description 05/10/2022 Scanned Document Cardiovascular Medicine at [address] [address] Norma Renee MD [address] [place] [phone] Social History Tobacco Use Types Packs/Day Years [...] Description 09/30/2024 8:00 PM EDT Procedure visit [facility] [address] [place] [address] [address] [place] [address] 10/31/2024 1:00 PM EDT Telemedicine Cancer Center at [address] [place] [address] Ronald Mills MD 240 [facility] Max [address] [place] [address] documented as of this encounter Visit Diagnoses Not on filedocumented in this encounter Additional Health Concerns Assessment Noted Time PHQ-9 Depression Total Score: 2 11/07/19 19 2:06 PM EDT documented as of this encounter Care Teams Mononitrotoluene Operator Relationship Specialty Start Date End Date Caitlyn Bowie MD 3400 [facility] 1 [place] [address] PCP - General Internal Medicine 05/06/21 documented as of this encounter"
--- OUTSIDE RECORDS SUMMARY | 2024-09-04 17:34 | XMS_ITS | Encounter Summary ---
Author Organization [facility] Address [address] [place] [address] Care Team Providers Care Undercoater Name Role Phone Caitlyn Bowie MD Primary Care Provider +1- [phone] Encounter Details Date Type Department Care Team (Late st Contact Info) Description 02/21/2017 Scanned Document [facility] Health Information Management [address] [place] [address] External, Provider Social History Tobacco Use Types [...] Description 09/30/2024 8:00 PM EDT Procedure visit [facility] [address] [place] [address] [address] [place] [address] 10/31/2024 1:00 PM EDT Telemedicine [facility] at [facility] 240 [facility] Building [address] [place], [place] [address] Ronald Mills MD 240 [facility] A1 [place] [address] documented as of this encounter Procedures Procedure [...] documented as of this encounter Care Teams Undercoater Relationship Specialty Start Date End Date Caitlyn Bowie MD 3400 [facility] 1 [place] [address] PCP - General Internal Medicine 05/06/21 Henry Kelly MD Pulmonary Department 175 [facility], [address] [place] [address] Physician Pulmonary Disease 09/06/17 06/22/20 documented as of this encounter
--- OUTSIDE RECORDS SUMMARY | 2024-09-04 17:34 | XMS_ITS | Encounter Summary ---
Author Organization [facility] and [facility] Address [address] [place] [address] Care Team Providers Care Dust Collector Attendant Name Role Phone Caitlyn Bowie MD Primary Care Provider +1- [phone] Encounter Details Date Type Department Care Team (Late st Contact Info) Description 05/04/2022 Scanned Document INTERFACE DEFAULT [address] [place] [address] System, Provider Not In Social History Tobacco [...] Description 09/30/2024 8:00 PM EDT Procedure visit [facility] [address] [place] [address] [address] [place] [address] 10/31/2024 1:00 PM EDT Telemedicine Cancer Center at [facility] 240 [facility] [address] [place] [address] Ronald Mills MD 240 [facility] A1 [place] [address] documented as of this encounter Visit Diagnoses Not on filedocumented in this encounter Additional Health Concerns Assessment Noted Time PHQ-9 Depression Total Score: 2 11/07/19 19 2:06 PM EDT documented as of this encounter Care Teams Dust Collector Attendant Relationship Specialty Start Date End Date Caitlyn Bowie MD [address] [address] PCP - General Internal Medicine 05/06/21 documented as of this encounter
--- OUTSIDE RECORDS SUMMARY | 2024-09-04 17:34 | XMS_ITS | Encounter Summary ---
Author Organization [facility] Address [address] [place] [address] Care Team Providers Care Grain Trader Name Role Phone Caitlyn Bowie MD Primary Care Provider +1- [phone] Encounter Details Date Type Department Care Team (Late st Contact Info) Description 05/16/2023 Scanned Document INTERFACE DEFAULT [address] [place] [address] System, Provider Not In Social History Tobacco [...] Description 09/30/2024 8:00 PM EDT Procedure visit [facility] [address] [place] [address] [address] [place] [address] 10/31/2024 1:00 PM EDT Telemedicine [facility] at [facility] 240 [facility] [address] [place] [address] Ronald Mills MD 240 [facility] A1 [place] [address] documented as of this encounter Procedures Procedure [...] documented as of this encounter Care Teams Grain Trader Relationship Specialty Start Date End Date Caitlyn Bowie MD [address] [address] PCP - General Internal Medicine 05/06/21 documented as of this encounter
--- OUTSIDE RECORDS SUMMARY | 2024-09-04 17:34 | XMS_ITS | Encounter Summary ---
Author Organization [facility] Address [address] [place] [address] Care Team Providers Care Processing Tech Name Role Phone Brennan Burnett MD Primary Care Provider [phone] Reason for Visit * Reason Comments Encopresis Encounter Details Date Type Department Care Team (Latest Contact Info) Description 08/23/2024 1:20 PM EST Office Visit Gastroenterology - [address] [place] [address] [facility] [address] [place] [phone] Saima Amor, ALON [address] [address] Gastroesophageal reflux disease, unspecified whether esophagitis present [...] X week. No bleeding Very gassy. 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 Board Certified Gastroenterology [facility] W [phone] 299 [facility] [address] [place] [address] [email or web address] Saima Amor NP documented in this encounter Plan of Treatment Upcoming Encounters Date Type Department Care Team (Late st Contact Info) Description 09/09/2024 3:30 PM EST Treatment [facility] Speech Therapy 175 [facility] 350 [place] [phone] Daphne Alarcon, ROUTER MACHINE OPERATOR documented as of this encounter Goals Goal Patient Goal Type Associated Problems Recent Progress Patient-Stated? Author ST [facility] General No aDphne Alarcon, ROUTER MACHINE OPERATOR Note: Pt will improve cognitive linguistic function to participate and communicate in iADLs mod I ST STGs General No Daphne Alarcon, ROUTER MACHINE OPERATOR Note: Pt will participate with development [...] type documented in this encounter Care Teams Processing Tech Relationship Specialty Start Date End Date Brennan Burnett MD [address] [place] [address] PCP - General 05/06/24 documented as of this encounter
--- OUTSIDE RECORDS SUMMARY | 2024-09-04 17:34 | XMS_ITS | Encounter Summary ---
Author Organization [facility] and [facility] Address [address] [place] [address] Care Team Providers Care Practice Professional Name Role Phone Caitlyn Bowie MD Primary Care Provider +1- [phone] Encounter Details Date Type Department Care Team (Late st Contact Info) Description 10/23/2018 Scanned Document [facility] Health Information Management [address] [place] [address] External, Provider Social History Tobacco Use Types [...] Description 09/30/2024 8:00 PM EDT Procedure visit [facility] [address] [place] [address] [address] [place] [address] 10/31/2024 1:00 PM EDT Telemedicine [facility] Center at [facility] 240 [facility] [address] [place], [place] [address] Ronald Mills MD 240 [facility] A1 [place] [address] documented as of this encounter Visit Diagnoses Not on filedocumented in this encounter Additional Health Concerns Infection Onset Date Last Indicated Resolved Time COVID-19 03/05/2022 03/05/2022 03/15/2022 7:18 PM EDT documented as of this encounter Care Teams Practice Professional Relationship Specialty Start Date End Date Caitlyn Bowie MD 3400 [facility] 1 [place] [address] PCP - General Internal Medicine 05/06/21 Henry Kelly MD Pulmonary Department 175 [facility], [address] [place] [address] Physician Pulmonary Disease 09/06/17 06/22/20 documented as of this encounter
--- OUTSIDE RECORDS SUMMARY | 2024-09-04 17:34 | XMS_ITS | Encounter Summary ---
Author Organization [facility] and [facility] Address [address] [place] [address] Care Team Providers Care Academic Interventionist Name Role Phone Catilyn Bowie MD Primary Care Provider +1- [phone] Encounter Details Date Type Department Care Team (Late st Contact Info) Description 06/23/2022 Scanned Document INTERFACE DEFAULT [address] [place] [address] System, Provider Not In Social History Tobacco [...] Description 09/30/2024 8:00 PM EDT Procedure visit [facility] [address] [place] [address] [address] [place] [address] 10/31/2024 1:00 PM EDT Telemedicine Cancer Center at [facility] 240 [facility] [address] [place] [address] Ronald Mills MD 240 [facility] [address]1 [place] [address] documented as of this encounter Visit Diagnoses Not on filedocumented in this encounter Additional Health Concerns Assessment Noted Time PHQ-9 Depression Total Score: 2 11/07/19 19 2:06 PM EDT documented as of this encounter Care Teams Academic Interventionist Relationship Specialty Start Date End Date Caitlyn Bowie MD [address] [address] PCP - General Internal Medicine 05/06/21 documented as of this encounter
--- OUTSIDE RECORDS SUMMARY | 2024-09-04 17:34 | XMS_ITS | Encounter Summary ---
Author Organization [facility] and [facility] Address 20 [place] [address] Care Team Providers Care Assistant Drafter Name Role Phone Caitlyn Bowie MD Primary Care Provider +1- [phone] Encounter Details Date Type Department Care Team (Late st Contact Info) Description 09/24/2015 Scanned Document Digestive Diseases at 40 [facility] [address] [address] Kevin Espinoza MD [address] [place] [phone] Social History Tobacco Use Types Packs/Day Years [...] Description 09/30/2024 8:00 PM EDT Procedure visit [facility] [address] [place] [address] [address] [place] [address] 10/31/2024 1:00 PM EDT Telemedicine Cancer Center at [address] [place] [address] Ronald Mills MD [address] [place] [address] [address] [place] [address] documented as of this encounter Visit Diagnoses Not on filedocumented in this encounter Additional Health Concerns Infection Onset Date Last Indicated Resolved Time COVID-19 03/05/2022 03/05/2022 03/15/2022 7:18 PM EDT documented as of this encounter Care Teams Assistant Drafter Relationship Specialty Start Date End Date Caitlyn Bowie MD 3400 [facility] 1 [place] [address] PCP - General Internal Medicine 05/06/21 Henry Kelly MD Pulmonary Department 175 [facility], [address] [place] [address] Physician Pulmonary Disease 09/06/17 06/22/20 documented as of this encounter
--- OUTSIDE RECORDS SUMMARY | 2024-09-04 17:34 | XMS_ITS | Encounter Summary ---
Author Organization [facility] and [facility] Address [address] [place] [address] Care Team Providers Care Conveyor Feeder Name Role Phone Caitlyn Bowie MD Primary Care Provider +1- [phone] Encounter Details Date Type Department Care Team (Late st Contact Info) Description 04/26/2017 Scanned Document Cardiovascular Medicine at [address] [place] [address] Norma Renee MD [address] [place] [phone] Social History Tobacco Use Types Packs/Day Years [...] Description 09/30/2024 8:00 PM EDT Procedure visit [facility] [address] [place] [address] [address] [place] [address] [phone] 10/31/2024 1:00 PM EDT Telemedicine Cancer Center at [facility] [address] [facility] [address] [place] [address] Ronald Mills MD 240 [facility] [address] [place] [address] documented as of this encounter Visit Diagnoses Not on filedocumented in this encounter Additional Health Concerns Infection Onset Date Last Indicated Resolved Time COVID-19 03/05/2022 03/05/2022 03/15/2022 7:18 PM EDT documented as of this encounter Care Teams Conveyor Feeder Relationship Specialty Start Date End Date Caitlyn Bowie MD 3400 [facility] 1 [place] [address] PCP - General Internal Medicine 05/06/21 Henry Kelly MD Pulmonary Department 175 [facility], [address] [place] [address] Physician Pulmonary Disease 09/06/17 06/22/20 documented as of this encounter
--- OUTSIDE RECORDS SUMMARY | 2024-09-04 17:34 | XMS_ITS | Encounter Summary ---
Author Organization [facility] Address [address] [place] [address] Care Team Providers Care Scrap Crane Operator Name Role Phone Caitlyn Bowie MD Primary Care Provider +1- [phone] Encounter Details Date Type Department Care Team (Late st Contact Info) Description 09/09/2015 Scanned Document [facility] Health Information Management [address] [place] [address] External, Provider Social History Tobacco Use Types [...] Description 09/30/2024 8:00 PM EDT Procedure visit [facility] [address] [place] [address] [address] [place] [address] 10/31/2024 1:00 PM EDT Telemedicine Cancer Center at [facility] 240 [facility] Building [address] [place], [place] [address] Ronald Mills MD 240 [facility] [address] [place] [phone] documented as of this encounter Procedures Procedure Name Priority Date/Time Associated Diagnosis Comments LAB SCAN Routine 09/09/2015 documented in this encounter Results * Lab Scan (09/09/2015) Blood specimen (specimen) us Provider External LAB BLOOD ORDERABLES Final Res ult Performing Organization Address City/State/[facility] Co de Phone Number [facility] documented in this encounter Visit Diagnoses Not on filedocumented in this encounter Additional Health Concerns Infection Onset Date Last Indicated Resolved Time COVID-19 03/05/2022 03/05/2022 03/15/2022 7:18 PM EDT documented as of this encounter Care Teams Scrap Crane Operator Relationship Specialty Start Date End Date Caitlyn Bowie MD 3400 [facility] [address] 1 [place] [address] PCP - General Internal Medicine 05/06/21 Henry Kelly MD Pulmonary Department 175 [facility], [address] [place] [address] Physician Pulmonary Disease 09/06/17 06/22/20 documented as of this encounter
--- OUTSIDE RECORDS SUMMARY | 2024-09-04 17:34 | XMS_ITS | Encounter Summary ---
Author Organization [facility] and [facility] Address [address] [place] [address] Care Team Providers Care Control Analyst Name Role Phone Caitlyn Bowie MD Primary Care Provider +1- [phone] Encounter Details Date Type Department Care Team (Late st Contact Info) Description 09/01/2023 Scanned Document INTERFACE DEFAULT [address] [place] [address] System, Provider Not In Social History Tobacco [...] Description 09/30/2024 8:00 PM EDT Procedure visit [facility] [address] [place] [address] [address] [place] [address] 10/31/2024 1:00 PM EDT Telemedicine Cancer Center at [facility] 240 [facility] [address] [place] [address] Ronald Mills MD 240 [facility] [address] [place] [phone] documented as of this encounter Visit Diagnoses Not on filedocumented in this encounter Additional Health Concerns Assessment Noted Time PHQ-9 Depression Total Score: 2 11/07/19 19 2:06 PM EDT documented as of this encounter Care Teams Control Analyst Relationship Specialty Start Date End Date Caitlyn Bowie MD [address] [address] PCP - General Internal Medicine 05/06/21 documented as of this encounter
--- OUTSIDE RECORDS SUMMARY | 2024-09-04 17:34 | XMS_ITS | Encounter Summary ---
Author Organization [facility] and [facility] Address [address] [place] [address] Care Team Providers Care Geological Specialist Name Role Phone Caitlyn Bowie MD Primary Care Provider +1- [phone] Encounter Details Date Type Department Care Team (Late st Contact Info) Description 12/06/2018 Scanned Document [facility] Health Information Management [address] [place] [address] External, Provider Social History Tobacco Use Types [...] Description 09/30/2024 8:00 PM EDT Procedure visit [facility] [address] [place] [address] [address] [place] [phone] 10/31/2024 1:00 PM EDT Telemedicine Cancer Center at [facility] [address] [facility] Building [address] [place], [place] [phone] Ronald Mills MD 240 [facility] A1 [place] [address] documented as of this encounter [...] documented as of this encounter Care Teams Geological Specialist Relationship Specialty Start Date End Date Caitlyn Bowie MD 3400 [facility] 1 [place] [address] PCP - General Internal Medicine 05/06/21 Henry Kelly MD Pulmonary Department [address] [place] [address], [address] [place] [address] Physician Pulmonary Disease 09/06/17 06/22/20 documented as of this encounter
--- OUTSIDE RECORDS SUMMARY | 2024-09-04 17:34 | XMS_ITS | Encounter Summary ---
Author Organization [facility] and [facility] Address [address] [place] [address] Care Team Providers Care Account Services Manager Name Role Phone Caitlyn Bowie MD Primary Care Provider +1- [phone] Encounter Details Date Type Department Care Team (Late st Contact Info) Description 04/13/2023 Scanned Document INTERFACE DEFAULT [address] [place] [address] System, Provider Not In Social History Tobacco [...] Description 09/30/2024 8:00 PM EDT Procedure visit [facility] [address] [place] [address] [address] [place] [phone] 10/31/2024 1:00 PM EDT Telemedicine Cancer Center at [facility] 240 [facility] [address] [place] [address] Ronald Mills MD 240 [facility] [address]1 [place] [address] documented as of this encounter Procedures Procedure [...] as of this encounter Care Teams Account Services Manager Relationship Specialty Start Date End Date Caitlyn Bowie MD [address] [address] PCP - General Internal Medicine 05/06/21 documented as of this encounter
--- OUTSIDE RECORDS SUMMARY | 2024-09-04 17:34 | XMS_ITS | Encounter Summary ---
Author Organization [facility] and [facility] Address [address] [place] [address] Care Team Providers Care Air Quality Chemist Name Role Phone Caitlyn Bowie MD Primary Care Provider +1- [phone] Reason for Visit * Reason Comments Triage extream dry skin Encounter Details Date Type Department Care Team ([facility] st Contact Info) Description 05/12/2023 Telephone Medical Dermatology at [address] [address] Augustine Vargas MD [address] [place] [phone] Triage (extream dry skin) Social History [...] to her by Dr. Vargas at the [facility]. Requested that she send pictures which [...] know if there's something the can prescribe. [phone] documented in this encounter Plan of Treatment Upcoming Encounters Date Type Department Care Team (Late st Contact Info) Description 09/30/2024 8:00 PM EDT Procedure visit [facility] [address] [place] [address] [address] [place] [address] 10/31/2024 1:00 PM EDT Telemedicine Cancer Center at [facility] [address] [facility] Building [address] [place] [address] Ronald Mills MD 240 [facility] [address] [place] [phone] documented as of this encounter Visit Diagnoses Not on filedocumented in this encounter Additional Health Concerns Assessment Noted Time PHQ-9 Depression Total Score: 2 11/07/19 19 2:06 PM EDT documented as of this encounter Care Teams Air Quality Chemist Relationship Specialty Start Date End Date Caitlyn Bowie MD [address] [address] PCP - General Internal Medicine 05/06/21 documented as of this encounter
--- OUTSIDE RECORDS SUMMARY | 2024-09-04 17:34 | XMS_ITS | Encounter Summary ---
Author Organization [facility] Address [address] [place] [address] Care Team Providers Care Radio Tower Technician Name Role Phone Brennan Burnett MD Primary Care Provider [phone] Reason for Visit * Reason Onset Date Comments returning pt call 08/19/2024 Encounter Details Date Type Department Care Team (Late st Contact Info) Description 08/19/2024 Telephone [facility] Speech Therapy [address] [address] Daphne Alarcon, SENIOR INTERACTION DESIGNER returning pt call Social History Tobacco Use [...] call about receiving a copy of her SENIOR INTERACTION DESIGNER evaluation. She has called medical records and was not able to reach an employee. She does not use [employer] and is requesting a copy of her records. Left her VM with information to complete medical release form (can be emailed or mailed) and then how to submit completed form. documented in this encounter Plan of Treatment Upcoming Encounters Date Type Department Care Team (Late st Contact Info) Description 09/09/2024 3:30 PM EST Treatment [facility] Speech Therapy [address] [place] [address] Daphne Alarcon, SENIOR INTERACTION DESIGNER documented as of this encounter Goals Goal Patient Goal Type Associated Problems Recent Progress Patient-Stated? Author ST LTG General No Daphne Alarcon, SENIOR INTERACTION DESIGNER Note: Pt will improve cognitive linguistic function to participate and communicate in iADLs mod I ST STGs General No Daphne Alarcon, SENIOR INTERACTION DESIGNER Note: Pt will participate with development of [...] on filedocumented in this encounter Care Teams Radio Tower Technician Relationship Specialty Start Date End Date Brennan Burnett MD [address] [place] [address] PCP - General 05/06/24 documented as of this encounter
--- OUTSIDE RECORDS SUMMARY | 2024-09-04 17:34 | XMS_ITS | Encounter Summary ---
Author Organization [facility] Address [address] [place] [address] Care Team Providers Care Colorman Name Role Phone Brennan Burnett MD Primary Care Provider [phone] Encounter Details Date Type Department Care Team (Late st Contact Info) Description 08/26/2024 10:30 AM EST Telemedicine [facility] [address] [facility] [address] [place] [phone] Ayanna Jaffe MD [address] [facility] [address] [place] [phone] Anxiety (Primary Dx); Memory change; Gait abnormality; [...] which they are responsible for. Patients Location: [facility]: Jovana Malik is a 79 y.o. year [...] with sleep she restarted She saw her brand executive and will refer to sleep study she wants to go to [facility] 79 yo female with PMH Pulmonary HTN , She does have coronary disease but nothing high-grade and never had percutaneous coronary invention or heart surgery leg bypass. 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 The majority of the actual nwaw-ca-vjei visit was spent counseling the patient with respect to the current neurological picture. Ayanna Jaffe MD 33 documented in this encounter Plan of Treatment Upcoming Encounters Date Type Department Care Team (Late st Contact Info) Description 09/09/2024 3:[address] [facility] Speech Therapy [address] [place] [phone] Daphne Alarcon, RUSH SEATER documented as of this encounter Goals Goal Patient Goal Type Associated Problems Recent Progress Patient-Stated? Author ST LTG General No Daphne Alarcon, RUSH SEATER Note: Pt will improve cognitive linguistic function to participate and communicate in iADLs mod I ST STGs General No Daphne Alarcon, RUSH SEATER Note: Pt will participate with development of [...] documented as of this encounter Care Teams Colorman Relationship Specialty Start Date End Date Brennan Burnett MD [address] [place] [address] PCP - General 05/06/24 documented as of this encounter
--- OUTSIDE RECORDS SUMMARY | 2024-09-04 17:34 | XMS_ITS | Encounter Summary ---
Author Organization [facility] and [facility] Address [address] [place] [address] Care Team Providers Care Powertrain Calibration Engineer Name Role Phone Caitlyn Bowie MD Primary Care Provider +1- [phone] Encounter Details Date Type Department Care Team (Late st Contact Info) Description 09/09/2015 Scanned Document [facility] Health Information Management [address] [place] [address] External, Provider Social History Tobacco Use Types [...] 09/30/2024 8:00 PM EDT Procedure visit [facility] [address] [place] [address] [address] [place] [address] 10/31/2024 1:00 PM EDT Telemedicine Cancer Center at [facility] [address] [facility] Building [address] [place], [place] [address] Ronald Mills MD 240 [facility] A1 [place] [phone] documented as of this encounter Procedures Procedure Name Priority Date/Time Associated Diagnosis Comments LAB SCAN Routine 09/09/2015 documented in this encounter Results * Lab Scan (09/09/2015) Blood specimen (specimen) us Provider External LAB BLOOD ORDERABLES Final Res ult Performing Organization Address City/State/[facility] Co de Phone Number [facility] documented in this encounter Visit Diagnoses Not on filedocumented in this encounter Additional Health Concerns Infection Onset Date Last Indicated Resolved Time COVID-19 03/05/2022 03/05/2022 03/15/2022 7:18 PM EDT documented as of this encounter Care Teams Powertrain Calibration Engineer Relationship Specialty Start Date End Date Caitlyn Bowie MD 3400 [facility] Max 1 [place] [address] PCP - General Internal Medicine 05/06/21 Henry Kelly MD Pulmonary Department 175 [facility], [address] [place] [address] Physician Pulmonary Disease 09/06/17 06/22/20 documented as of this encounter
--- OUTSIDE RECORDS SUMMARY | 2024-09-04 17:36 | XMS_ITS | Encounter Summary ---
Author Organization [facility] and [facility] Address [address] [place] [address] Care Team Providers Care Maintenance Technician 3Rd Shift Name Role Phone Caitlyn Bowie MD Primary Care Provider [phone]- [phone] Encounter Details Date Type Department Care Team (Late st Contact Info) Description 04/19/2022 Scanned Document INTERFACE DEFAULT [address] [place] [address] System, Provider Not In Social History Tobacco [...] Description 09/30/2024 8:00 PM EDT Procedure visit [facility] [address] [place] [address] [address] [place] [phone] 10/31/2024 1:00 PM EDT Telemedicine Cancer Center at [facility] 240 [facility] [address] [place] [address] Ronald Mills MD 240 [facility] [address]1 [place] [phone] documented as of this encounter Procedures Procedure [...] documented as of this encounter Care Teams Maintenance Technician 3Rd Shift Relationship Specialty Start Date End Date Caitlyn Bowie MD [address] [address] PCP - General Internal Medicine 05/06/21 documented as of this encounter
--- OUTSIDE RECORDS SUMMARY | 2024-09-04 17:36 | XMS_ITS | Patient Health Record ---
Author Organization [facility] Address [address] [facility] [address] [place] [address] Care Team Providers Care Clinical Laboratory Technician Name Role Phone EVELIN RAMSAY Primary Care Provider Yenny Hou Unavailable [phone] Allergies Allergen (clinical drug ingredient) Drug/Non Drug [...] UROBILINOGEN Neg BILIRUBIN Neg BLOOD Neg Urinalysis, Complete-[id number] Reviewed date:05/04/2024 11:35:42 PM Interpretation: Performing Lab:[facility], [address] [facility] [place], Phone - [phone], Director - Arely Notes/Report: Specific [place] 1.009 1.005-1.030 pH 6.5 5.0-7.5 Urine-Color Yellow [...] Bacteria None seen None seen/Few Urine Culture, Routine-[id number] Reviewed date:05/04/2024 11:35:22 PM Interpretation: Performing Lab:[facility], [address] [place] [address], Phone - [phone], Director - MDJoy Notes/Report: Urine Culture, Routine Final report Result 1 Culture shows less than 10,000 colony forming units of bacteria per milliliter of urine. This colony count is not generally considered to be clinically significant. PDF Report Reviewed date:05/04/2024 11:35:04 PM Interpretation: Performing Lab:[facility], [address] [place] [address], Phone - [phone], Director - MDBrenda Notes/Report: Urinalysis Reviewed date:07/09/2024 11:03:01 AM Interpretation: Performing [...] Synthroid 25MCG 1 ORAL daily for -3 [facility] 06/10/2014 Active ZyrTEC Allergy 10MG 1 ORAL [...] 1 ORAL at bedtime fo r -3 [facility] 06/10/2014 Active Meclizine HCl 25 MG 1 tablet as needed Orally [facility] 06/10/2014 Active Albuterol Sulfate (2.5 MG/3ML)0.083% Inhalation 4 x a day prn 06/10/2014 Active Valium 5MG 1 tablet as needed O RAL at bedtime, 1/2 tab prn during the day [facility] 06/10/2014 Active Social History Tobacco Use: Social [...] Status Risk Notes Problem Postmenopausal atrophic vaginitis (26969485) Postmenopausal atrophic vaginitis (N95.2) Active confirmed Problem Age-related osteoporosis (640135532) Age-related osteoporosis without current pathological fracture (M81.0) Active confirmed Problem Urgent desire to urinate (63208467) Urgency of urination (R39.15) Active confirmed 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 Problem Chronic systolic heart failure (854299014) Chronic systolic (congestive) heart failure (I50.22) Active confirmed Problem Chronic obstructive pulmonary disease (31196327) Chronic obstructive pulmonary disease, unspecified (J44.9) Active confirmed Problem Functional urinary incontinence (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) Functional 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) Active confirmed Problem Personal history of primary malignant neoplasm of bronchus (428965213) 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) Active confirmed Vital Signs Temperature 97.7 degrees Fahrenheit 07/18/2024 Blood pressure diastolic 62 mm Hg 07/18/2024 Height 63 in 07/18/2024 Blood pressure systolic 102 mm Hg 07/18/2024 Weight 126 lbs 07/18/2024 BMI 22.32 kg/m2 07/18/2024 Encounters Encounter Location Date Provider Diagnosis Total [address] [address] 05/03/2024 Yenny Elizalde Urgency of urination R39.15 and Abscess of vulva N76.[address] [address] 05/10/2024 Yenny Elizalde Abscess of vulva N76 .[address] [address] 05/17/2024 Yenny Elizalde Abscess of vulva N76 .[address] [address] 07/09/2024 Yenny Elizalde Urgency of urination R39.15 ; Acute vaginitis N76.0 and Postmenopausal atrophic vaginitis N95.[address] [address] 07/18/2024 Yennydorothy Lovettva Encounter for screening mammogram for malignant neoplasm of breast Z12.31 and Mastodynia N64.[address] [address] 05/10/2024 Yenny Elizalde Total [address] [address] 05/13/2024 Yenny Elizalde Total [address] [place] [address] 06/11/2024 Yenny Roweueva Assessments Encounter Date Diagnosis [...] [facility] AND DISCUSSED THIS PAT. [...] Date MEDICARE [address] [place]EDA NIEVES [id number] CINDA WATSON Self - patient is the insured MED[employer] [address] [place] [address] [id number] 3 CINDA WATSON Self - patient is [...]
--- OUTSIDE RECORDS SUMMARY | 2024-09-04 17:36 | XMS_ITS | Encounter Summary ---
Author Organization [facility] and [facility] Address [address] [place] [address] Care Team Providers Care Extractor Tender Raw Stock Name Role Phone Caitlyn Bowie MD Primary Care Provider +1- [phone] Encounter Details Date Type Department Care Team (Late st Contact Info) Description 12/31/2015 Scanned Document [facility] [address] [place] [address] External, Provider Social History Tobacco Use Types [...] Description 09/30/2024 8:00 PM EDT Procedure visit [facility] [address] [place] [address] [address] [place] [phone] 10/31/2024 1:00 PM EDT Telemedicine Cancer Center at [facility] [address] [facility] [address] [place], [place] [address] Ronald Mills MD 240 [facility] [address] [place] [address] documented as of this encounter Procedures Procedure Name Priority Date/Time Associated Diagnosis Comments LAB SCAN Routine 12/31/2015 documented in this encounter Results * Lab Scan (12/31/2015) Blood specimen (specimen) us Provider External LAB BLOOD ORDERABLES Final Res ult Performing Organization Address City/State/[facility] Co de Phone Number [facility] documented in this encounter Visit Diagnoses Not on filedocumented in this encounter Additional Health Concerns Infection Onset Date Last Indicated Resolved Time COVID-19 03/05/2022 03/05/2022 03/15/2022 7:18 PM EDT documented as of this encounter Care Teams Extractor Tender Raw Stock Relationship Specialty Start Date End Date Caitlyn Bowie MD 3400 [facility] 1 [place] [address] PCP - General Internal Medicine 05/06/21 Henry Kelly MD Pulmonary Department 175 [facility], [address] [place] [address] Physician Pulmonary Disease 09/06/17 06/22/20 documented as of this encounter
--- OUTSIDE RECORDS SUMMARY | 2024-09-04 17:36 | XMS_ITS | Encounter Summary ---
Author Organization [facility] and [facility] Address [address] [place] [address] Care Team Providers Care Rug Clipper Name Role Phone Caitlyn Bowie MD Primary Care Provider +1- [phone] Encounter Details Date Type Department Care Team (Late st Contact Info) Description 04/22/2022 Scanned Document INTERFACE DEFAULT [address] [place] [address] System, Provider Not In Social History Tobacco [...] Description 09/30/2024 8:00 PM EDT Procedure visit [facility] [address] [place] [address] [address] [place] [address] 10/31/2024 1:00 PM EDT [facility] 240 [facility] [address] [place] [address] Ronald Mills MD 240 [facility] [address]1 [place] [address] documented as of this encounter Procedures Procedure [...] documented as of this encounter Care Teams Rug Clipper Relationship Specialty Start Date End Date Caitlyn Bowie MD [address] [address] PCP - General Internal Medicine 05/06/21 documented as of this encounter
--- OUTSIDE RECORDS SUMMARY | 2024-09-04 17:36 | XMS_ITS | Encounter Summary ---
Author Organization [facility] and [facility] Address [address] [place] [address] Care Team Providers Care General Assignment Reporter Name Role Phone Caitlyn Bowie MD Primary Care Provider +1- [phone] Encounter Details Date Type Department Care Team (Late st Contact Info) Description 04/28/2022 Scanned Document INTERFACE DEFAULT [address] [place] [address] System, Provider Not In Social History Tobacco [...] Description 09/30/2024 8:00 PM EDT Procedure visit [facility] [address] [place] [address] [address] [place] [address] 10/31/2024 1:00 PM EDT [facility] 240 [facility] [address] [place] [address] Ronald Mills MD 240 [facility] [address]1 [place] [address] documented as of this encounter Procedures Procedure [...] as of this encounter Care Teams General Assignment Reporter Relationship Specialty Start Date End Date Caitlyn Bowie MD [facility] [address] [address] PCP - General Internal Medicine 05/06/21 documented as of this encounter
--- OUTSIDE RECORDS SUMMARY | 2024-09-04 17:36 | XMS_ITS | Encounter Summary ---
Author Organization [facility] and [facility] Address [address] [place] [address] Care Team Providers Care Laminator Hand Name Role Phone Caitlyn Bowie MD Primary Care Provider +1- [phone] Encounter Details Date Type Department Care Team (Late st Contact Info) Description 04/25/2022 Scanned Document INTERFACE DEFAULT [address] [place] [address] System, Provider Not In Social History Tobacco [...] Description 09/30/2024 8:00 PM EDT Procedure visit [facility] [address] [place] [address] [address] [place] [address] 10/31/2024 1:00 PM EDT Telemed[facility] 240 [facility] [address] [place] [address] Ronald Mills MD 240 [facility] [address]1 [place] [address] documented as of this encounter Visit Diagnoses Not on filedocumented in this encounter Additional Health Concerns Assessment Noted Time PHQ-9 Depression Total Score: 2 11/07/19 19 2:06 PM EDT documented as of this encounter Care Teams Laminator Hand Relationship Specialty Start Date End Date Caitlyn Bowie MD [address] [address] PCP - General Internal Medicine 05/06/21 documented as of this encounter
--- OUTSIDE RECORDS SUMMARY | 2024-09-04 17:38 | XMS_ITS | Encounter Summary ---
Author Organization [facility] and [facility] Address [address] [place] [address] Care Team Providers Care Driver Manager Name Role Phone Caitlyn Bowie MD Primary Care Provider +1- [phone] Encounter Details Date Type Department Care Team (Late st Contact Info) Description 04/16/2022 Scanned Document INTERFACE DEFAULT [address] [place] [address] System, Provider Not In Social History Tobacco [...] Description 09/30/2024 8:00 PM EDT Procedure visit [facility] [address] [place] [address] [address] [place] [address] 10/31/2024 1:00 PM EDT [facility] 240 [facility] [address] [place] [address] Ronald Mills MD 240 [facility] [address]1 [place] [address] documented as of this encounter Procedures Procedure Name Priority Date/Time Associated Diagnosis Comments CT SUBSEQUENT LUNG CANCER SCREENING 04/16/2022 12:00 AM EDT documented in this encounter Results * CT SUBSEQUENT LUNG CANCER SCREENING (04/16/2022 12:00 AM EDT) Anatomical Region Laterality Modality Chest, Lung Computed Tomogra phy 04/16/2022 Provider Not In System IMG CT ORDERABLES Final R esult documented in this encounter Visit Diagnoses Not on filedocumented in this encounter Additional Health Concerns Assessment Noted Time PHQ-9 Depression Total Score: 2 11/07/19 19 2:06 PM EDT documented as of this encounter Care Teams Driver Manager Relationship Specialty Start Date End Date Caitlyn Bowie MD [address] [address] PCP - General Internal Medicine 05/06/21 documented as of this encounter
--- OUTSIDE RECORDS SUMMARY | 2024-09-04 17:38 | XMS_ITS | Encounter Summary ---
Author Organization [facility] and [facility] Address [address] [place] [address] Care Team Providers Care Parts Designer Name Role Phone Caitlyn Bowie MD Primary Care Provider +1- [phone] Encounter Details Date Type Department Care Team (Late st Contact Info) Description 04/18/2022 Scanned Document INTERFACE DEFAULT [address] [place] [address] System, Provider Not In Social History Tobacco [...] 09/30/2024 8:00 PM EDT Procedure visit [facility] [address] [place] [address] [address] [place] [address] 10/31/2024 1:00 PM EDT [facility] [address] [facility] [address] [place] [address] Ronald Mills MD 240 [facility] [address]1 [place] [address] documented as of this encounter Visit Diagnoses Not on filedocumented in this encounter Additional Health Concerns Assessment Noted Time PHQ-9 Depression Total Score: 2 11/07/19 19 2:06 PM EDT documented as of this encounter Care Teams Parts Designer Relationship Specialty Start Date End Date Caitlyn Bowie MD [address] [address] PCP - General Internal Medicine 05/06/21 documented as of this encounter
--- OUTSIDE RECORDS SUMMARY | 2024-09-04 17:39 | XMS_ITS | Encounter Summary ---
Author Organization [facility] and [facility] Address [address] [place] [address] Care Team Providers Care Manager Field Services Name Role Phone Caitlyn Bowie MD Primary Care Provider +1- [phone] Encounter Details Date Type Department Care Team (Late st Contact Info) Description 01/30/2019 Scanned Document [facility] Health Information Management [address] [place] [address] External, Provider Social History Tobacco Use Types [...] Description 09/30/2024 8:00 PM EDT Procedure visit [facility] [address] [place] [address] [address] [place] [address] 10/31/2024 1:00 PM EDT Telemedicine [facility] at [facility] 240 [facility] [address] [place] [address] Ronald Mills MD 240 [facility] A1 [place] [address] documented as of this encounter Procedures Procedure [...] as of this encounter Care Teams Manager Field Services Relationship Specialty Start Date End Date Caitlyn Bowie MD 3400 [facility] 1 [place] [address] PCP - General Internal Medicine 05/06/21 Henry Kelly MD Pulmonary Department 175 [facility], [address] [place] [address] Physician Pulmonary Disease 09/06/17 06/22/20 documented as of this encounter
--- OUTSIDE RECORDS SUMMARY | 2024-09-04 17:39 | XMS_ITS | Encounter Summary ---
Author Organization [facility] and [facility] Address [address] [place] [place] [address] Care Team Providers Care Charter Representative Name Role Phone Caitlyn Bowie MD Primary Care Provider +1- [phone] Encounter Details Date Type Department Care Team (Late st Contact Info) Description 08/21/2017 Scanned Document [facility] Health Information Management [address] [place] [address] External, Provider Social History Tobacco Use Types [...] Description 09/30/2024 8:00 PM EDT Procedure visit [facility] [address] [place] [address] [address] [place] [address] 10/31/2024 1:00 PM EDT [facility] 240 [facility] [address] [place], [place] [address] Ronald Mills MD 240 [facility] A1 [place] [address] documented as of [...] documented as of this encounter Care Teams Charter Representative Relationship Specialty Start Date End Date Caitlyn Bowie MD 3400 [facility] 1 [place] [address] PCP - General Internal Medicine 05/06/21 Henry Kelly MD Pulmonary Department 175 [facility], [address] [place] [address] Physician Pulmonary Disease 09/06/17 06/22/20 documented as of this encounter
--- OUTSIDE RECORDS SUMMARY | 2024-09-04 17:39 | XMS_ITS | Encounter Summary ---
Author Organization [facility] and [facility] Address [address] [place] [address] Care Team Providers Care Industrial Energy Engineer Name Role Phone Caitlyn Bowie MD Primary Care Provider +1- [phone] Encounter Details Date Type Department Care Team (Late st Contact Info) Description 03/11/2021 Scanned Document INTERFACE DEFAULT [address] [place] [address] System, Provider Not In Social History Tobacco [...] Description 09/30/2024 8:00 PM EDT Procedure visit [facility] [address] [place] [address] [address] [place] [address] 10/31/2024 1:00 PM EDT Telemedicine [facility] 240 [facility] [address] [place] [address] Ronald Mills MD 240 [facility] [address]1 [place] [address] documented as of this encounter Procedures Procedure [...] as of this encounter Care Teams Industrial Energy Engineer Relationship Specialty Start Date End Date Caitlyn Bowie MD [address] [address] PCP - General Internal Medicine 05/06/21 documented as of this encounter
--- OUTSIDE RECORDS SUMMARY | 2024-09-04 17:39 | XMS_ITS | Encounter Summary ---
Author Organization [facility] and [facility] Address [address] [place] [address] Care Team Providers Care Manager Of Construction Name Role Phone Caitlyn Bowie MD Primary Care Provider +1- [phone] Encounter Details Date Type Department Care Team (Late st Contact Info) Description 11/04/2015 Scanned Document [facility] Health Information Management [address] [place] [address] External, Provider Social History Tobacco Use Types [...] EDT Procedure visit [facility] [address] [place] [address] [address] [place] [address] 10/31/2024 1:00 PM EDT [facility] 240 [facility] [address] [place], [place] [address] Ronald Mills MD 240 [facility] A1 [place] [address] documented as of this encounter Procedures Procedure Name Priority Date/Time Associated Diagnosis Comments NUC MED/PET RESULT SCAN Routine 11/04/2015 documented in this encounter Results * Nuc Med/PET Result Scan (11/04/2015) us Provider External IMG SCAN REPORTS Edited Result - Final [facility] documented in this encounter Visit Diagnoses Not on filedocumented in this encounter Additional Health Concerns Infection Onset Date Last Indicated Resolved Time COVID-19 03/05/2022 03/05/2022 03/15/2022 7:18 PM EDT documented as of this encounter Care Teams Manager Of Construction Relationship Specialty Start Date End Date Caitlyn Bowie MD 3400 [facility] 1 [place] [address] PCP - General Internal Medicine 05/06/21 Henry Kelly MD Pulmonary Department 175 [facility], [address] [place] [address] Physician Pulmonary Disease 09/06/17 06/22/20 documented as of this encounter
--- OUTSIDE RECORDS SUMMARY | 2024-09-04 17:39 | XMS_ITS | Encounter Summary ---
Author Organization [facility] Address [address] [place] [address] Care Team Providers Care Inventory Worker Name Role Phone Caitlyn Bowie MD Primary Care Provider +1- [phone] Encounter Details Date Type Department Care Team (Late st Contact Info) Description 06/07/2017 Scanned Document [facility] Health Information Management [address] [place] [address] External, Provider Social History Tobacco Use Types [...] Description 09/30/2024 8:00 PM EDT Procedure visit [facility] [address] [place] [address] [address] [place] [address] 10/31/2024 1:00 PM EDT Telemedicine [facility] Center at [facility] 240 [facility] [address] [place], [place] [address] Ronald Mills MD 240 [facility] A1 [place] [address] documented as of this encounter [...] documented as of this encounter Care Teams Inventory Worker Relationship Specialty Start Date End Date Caitlyn Bowie MD 3400 [facility] 1 [place] [address] PCP - General Internal Medicine 05/06/21 Henry Kelly MD Pulmonary Department 175 [facility], [address] [place] [address] Physician Pulmonary Disease 09/06/17 06/22/20 documented as of this encounter
--- OUTSIDE RECORDS SUMMARY | 2024-09-04 17:39 | XMS_ITS | Encounter Summary ---
Author Organization [facility] and [facility] Address [address] [place] [address] Care Team Providers Care Wind Operations Manager Name Role Phone Caitlyn Bowie MD Primary Care Provider +1- [phone] Encounter Details Date Type Department Care Team (Late st Contact Info) Description 04/21/2021 Scanned Document INTERFACE DEFAULT [address] [place] [address] System, Provider Not In Social History Tobacco [...] 09/30/2024 8:00 PM EDT Procedure visit [facility] [address] [place] [address] [address] [place] [address] 10/31/2024 1:00 PM EDT Telemedicine [facility] at [facility] 240 [facility] [address] [place] [address] Ronald Mills MD 240 [facility] A1 [place] [address] documented as of this encounter Procedures Procedure [...] documented as of this encounter Care Teams Wind Operations Manager Relationship Specialty Start Date End Date Caitlyn Bowie MD [address] [address] PCP - General Internal Medicine 05/06/21 documented as of this encounter
--- OUTSIDE RECORDS SUMMARY | 2024-09-04 17:39 | XMS_ITS | Encounter Summary ---
Author Organization [facility] and [facility] Address [address] [place] [address] Care Team Providers Care Show Host Or Hostess Name Role Phone Caitlyn Bowie MD Primary Care Provider +1- [phone] Encounter Details Date Type Department Care Team (Late st Contact Info) Description 03/15/2021 Scanned Document INTERFACE DEFAULT [address] [place] [address] System, Provider Not In Social History Tobacco [...] Description 09/30/2024 8:00 PM EDT Procedure visit [facility] [address] [place] [address] [address] [place] [address] 10/31/2024 1:00 PM EDT [facility] 240 [facility] [address] [place] [address] Ronald Mills MD [address] [facility] A1 [place] [address] documented as of this encounter Procedures Procedure [...] documented as of this encounter Care Teams Show Host Or Hostess Relationship Specialty Start Date End Date Caitlyn Bowie MD [address] [address] PCP - General Internal Medicine 05/06/21 documented as of this encounter
--- OUTSIDE RECORDS SUMMARY | 2024-09-04 17:39 | XMS_ITS | Encounter Summary ---
Author Organization [facility] and [facility] Address [address] [place] [address] Care Team Providers Care Bill Board Poster Name Role Phone Caitlyn Bowie MD Primary Care Provider +1- [phone] Encounter Details Date Type Department Care Team (Late st Contact Info) Description 04/13/2021 Scanned Document INTERFACE DEFAULT [address] [place] [address] System, Provider Not In Social History Tobacco [...] Description 09/30/2024 8:00 PM EDT Procedure visit [facility] [address] [place] [address] [address] [place] [address] 10/31/2024 1:00 PM EDT [facility] 240 [facility] [address] [place] [address] Ronald Milsl MD 240 [facility] A1 [place] [address] documented as of this encounter Procedures Procedure [...] documented as of this encounter Care Teams Bill Board Poster Relationship Specialty Start Date End Date Caitlyn Bowie MD [facility] [address] [address] PCP - General Internal Medicine 05/06/21 documented as of this encounter
--- OUTSIDE RECORDS SUMMARY | 2024-09-04 17:39 | XMS_ITS | Encounter Summary ---
Author Organization [facility] and [facility] Address [address] [place] [address] Care Team Providers Care Welder Production Line Arc Name Role Phone Caitlyn Bowie MD Primary Care Provider +1- [phone] Encounter Details Date Type Department Care Team (Late st Contact Info) Description 01/28/2019 Scanned Document [facility] at [address] [place] [address] Cristian Arreguin MBBS [address] [place] [address] Social History Tobacco Use Types [...] Description 09/30/2024 8:00 PM EDT Procedure visit [facility] [address] [place] [address] [address] [place] [address] 10/31/2024 1:00 PM EDT Telemedicine Cancer Center at [address] [place], [place] [address] Ronald Mills MD 240 [facility] A1 [place] [address] documented as of this encounter Visit Diagnoses Not on filedocumented in this encounter Additional Health Concerns Infection Onset Date Last Indicated Resolved Time COVID-19 03/05/2022 03/05/2022 03/15/2022 7:18 PM EDT Assessment Noted Time PHQ-9 Depression Total Score: 2 11/07/19 19 2:06 PM EDT documented as of this encounter Care Teams Welder Production Line Arc Relationship Specialty Start Date End Date Caitlyn Bowie MD 3400 [facility] 1 [place] [address] PCP - General Internal Medicine 05/06/21 Henry Kelly MD Pulmonary Department 175 [facility], [address] [place] [address] Physician Pulmonary Disease 09/06/17 06/22/20 documented as of this encounter
--- OUTSIDE RECORDS SUMMARY | 2024-09-04 17:39 | XMS_ITS | Encounter Summary ---
Author Organization [facility] and [facility] Address [address] [place] [address] Care Team Providers Care Business Process Specialist Name Role Phone Caitlyn Bowie MD Primary Care Provider +1- [phone] Encounter Details Date Type Department Care Team (Late st Contact Info) Description 04/16/2021 Scanned Document INTERFACE DEFAULT [address] [place] [address] System, Provider Not In Social History Tobacco [...] Description 09/30/2024 8:00 PM EDT Procedure visit [facility] [address] [place] [address] [address] [place] [address] 10/31/2024 1:00 PM EDT Telemedicine [facility] 240 [facility] [address] [place] [address] Ronald Mills MD 240 [facility] [address] [place] [address] documented as of this encounter Procedures Procedure [...] as of this encounter Care Teams Business Process Specialist Relationship Specialty Start Date End Date Caitlyn Bowie MD [address] [address] PCP - General Internal Medicine 05/06/21 documented as of this encounter
--- OUTSIDE RECORDS SUMMARY | 2024-09-04 17:39 | XMS_ITS | Encounter Summary ---
Author Organization [facility] and [facility] Address [address] [place] [address] Care Team Providers Care Manager Location Name Role Phone Caitlyn Bowie MD Primary Care Provider +1- [phone] Encounter Details Date Type Department Care Team (Late st Contact Info) Description 04/13/2022 Scanned Document INTERFACE DEFAULT [address] [place] [address] System, Provider Not In Social History Tobacco [...] Description 09/30/2024 8:00 PM EDT Procedure visit [facility] [address] [place] [address] [address] [place] [address] 10/31/2024 1:00 PM EDT [facility] 240 [facility] [address] [place] [address] Ronald Mills MD 240 [facility] A1 [place] [address] documented as of this encounter Procedures Procedure [...] as of this encounter Care Teams Manager Location Relationship Specialty Start Date End Date Caitlyn Bowei MD [facility] [address] [address] PCP - General Internal Medicine 05/06/21 documented as of this encounter
--- OUTSIDE RECORDS SUMMARY | 2024-09-04 17:39 | XMS_ITS | Encounter Summary ---
Author Organization [facility] and [facility] Address [address] [place] [address] Care Team Providers Care Ditch Rider Name Role Phone Caitlyn Bowie MD Primary Care Provider +1- [phone] Encounter Details Date Type Department Care Team (Late st Contact Info) Description 03/16/2021 Scanned Document INTERFACE DEFAULT [address] [place] [address] System, Provider Not In Social History Tobacco [...] Description 09/30/2024 8:00 PM EDT Procedure visit [facility] [address] [place] [address] [address] [place] [address] 10/31/2024 1:00 PM EDT [facility]medicine [facility] 240 [facility] [address] [place] [address] Ronald Mills MD 240 [facility] A1 [place] [address] documented as of this encounter Visit Diagnoses Not on filedocumented in this encounter Additional Health Concerns Infection Onset Date Last Indicated Resolved Time COVID-19 03/05/2022 03/05/2022 03/15/2022 7:18 PM EDT Assessment Noted Time PHQ-9 Depression Total Score: 2 11/07/19 19 2:06 PM EDT documented as of this encounter Care Teams Ditch Rider Relationship Specialty Start Date End Date Caitlyn Bowie MD [address] [address] PCP - General Internal Medicine 05/06/21 documented as of this encounter
--- OUTSIDE RECORDS SUMMARY | 2024-09-04 17:39 | XMS_ITS | Encounter Summary ---
Author Organization [facility] and [facility] Address [address] [place] [address] Care Team Providers Care Instructor Of Nursing Name Role Phone Caitlyn Bowie MD Primary Care Provider +1- [phone] Encounter Details Date Type Department Care Team (Late st Contact Info) Description 08/09/2017 Scanned Document Cardiovascular Medicine at [address] [address] System, Provider Not In Social History Tobacco [...] Description 09/30/2024 8:00 PM EDT Procedure visit [facility] [address] [place] [address] [address] [place] [address] 10/31/2024 1:00 PM EDT Tele[facility]icine [facility] at [address] [place], [place] [address] Ronald Mills MD [address] [place] [address] [address] [place] [address] documented as of this encounter [...] documented as of this encounter Care Teams Instructor Of Nursing Relationship Specialty Start Date End Date Caitlyn Bowie MD 3400 [facility] 1 [place] [address] PCP - General Internal Medicine 05/06/21 Henry Kelly MD Pulmonary Department 175 [facility], [address] [place] [address] Physician Pulmonary Disease 09/06/17 06/22/20 documented as of this encounter
--- OUTSIDE RECORDS SUMMARY | 2024-09-04 17:39 | XMS_ITS | Encounter Summary ---
Author Organization [facility] and [facility] Address [address] [place] [address] Care Team Providers Care Doughmaker Name Role Phone Caitlyn Bowie MD Primary Care Provider +1- [phone] Encounter Details Date Type Department Care Team (Late st Contact Info) Description 03/08/2021 Scanned Document INTERFACE DEFAULT [address] [place] [address] System, Provider Not In Social History Tobacco [...] Description 09/30/2024 8:00 PM EDT Procedure visit [facility] [address] [place] [address] [address] [place] [address] 10/31/2024 1:00 PM EDT Telemedicine Cancer Center at [facility] 240 [facility] [address] [place] [address] Ronald Mills MD 240 [facility] [address]1 [place] [address] documented as of this encounter Procedures Procedure [...] documented as of this encounter Care Teams Doughmaker Relationship Specialty Start Date End Date Caitlyn Bowie MD [address] [address] PCP - General Internal Medicine 05/06/21 documented as of this encounter
--- OUTSIDE RECORDS SUMMARY | 2024-09-04 17:39 | XMS_ITS | Encounter Summary ---
Author Organization [facility] and [facility] Address [address] [place] [address] Care Team Providers Care Account Development Executive Name Role Phone Caitlyn Bowie MD Primary Care Provider +1- [phone] Encounter Details Date Type Department Care Team (Late st Contact Info) Description 03/12/2019 Scanned Document [facility] Health Information Management [address] [place] [address] External, Provider Social History Tobacco Use Types [...] 09/30/2024 8:00 PM EDT Procedure visit [facility] [address] [place] [address] [address] [place] [address] 10/31/2024 1:00 PM EDT Telemedicine Cancer Center at [facility] 240 [facility] [address] [place] [address] Ronald Mills MD 240 [facility] [address]1 [place] [address] documented as of this encounter Procedures Procedure [...] as of this encounter Care Teams Account Development Executive Relationship Specialty Start Date End Date Ciatlyn Bowie MD 3400 [facility] [address] 1 [place] [address] PCP - General Internal Medicine 05/06/21 Henry Kelly MD Pulmonary Department 175 [facility], [address] [place] [address] Physician Pulmonary Disease 09/06/17 06/22/20 documented as of this encounter
--- OUTSIDE RECORDS SUMMARY | 2024-09-04 17:39 | XMS_ITS | Encounter Summary ---
Author Organization [facility] and [facility] Address [address] [place] [address] Care Team Providers Care Side Trimmer Name Role Phone Caitlyn Bowie MD Primary Care Provider +1- [phone] Encounter Details Date Type Department Care Team (Late st Contact Info) Description 03/22/2021 Scanned Document INTERFACE DEFAULT [address] [place] [address] System, Provider Not In Social History Tobacco [...] Description 09/30/2024 8:00 PM EDT Procedure visit [facility] [address] [place] [address] [address] [place] [address] 10/31/2024 1:00 PM EDT Telemedicine Cancer Center at [facility] 240 [facility] [address] [place] [address] Ronald Mills MD 240 [facility] [address]1 [place] [address] documented as of this encounter Visit Diagnoses Not on filedocumented in this encounter Additional Health Concerns Infection Onset Date Last Indicated Resolved Time COVID-19 03/05/2022 03/05/2022 03/15/2022 7:18 PM EDT Assessment Noted Time PHQ-9 Depression Total Score: 2 11/07/19 19 2:06 PM EDT documented as of this encounter Care Teams Side Trimmer Relationship Specialty Start Date End Date Caitlyn Bowie MD [address] [address] PCP - General Internal Medicine 05/06/21 documented as of this encounter
--- OUTSIDE RECORDS SUMMARY | 2024-09-04 17:39 | XMS_ITS | Encounter Summary ---
Author Organization [facility] and [facility] Address [address] [place] [address] Care Team Providers Care Patient Service Rep Name Role Phone Caitlyn Bowie MD Primary Care Provider +1- [phone] Encounter Details Date Type Department Care Team (Late st Contact Info) Description 02/06/2019 Scanned Document [facility] Health Information Management [address] [place] [address] External, Provider Social History Tobacco Use Types [...] Description 09/30/2024 8:00 PM EDT Procedure visit [facility] [address] [place] [address] [address] [place] [address] 10/31/2024 1:00 PM EDT Telemedicine Cancer Center at [facility] 240 [facility] [address] [place] [address] Ronald iMlls MD 240 [facility] [address]1 [place] [address] documented as of this encounter Procedures Procedure [...] documented as of this encounter Care Teams Patient Service Rep Relationship Specialty Start Date End Date Caitlyn Bowie MD 3400 [facility] Max 1 [place] [address] PCP - General Internal Medicine 05/06/21 Henry Kelly MD Pulmonary Department 175 [facility], [address] [place] [address] Physician Pulmonary Disease 09/06/17 06/22/20 documented as of this encounter
--- OUTSIDE RECORDS SUMMARY | 2024-09-04 17:39 | XMS_ITS | Encounter Summary ---
Author Organization [facility] and [facility] Address [address] [place] [address] Care Team Providers Care Community Arts Worker Name Role Phone Caitlyn Bowie MD Primary Care Provider +1- [phone] Encounter Details Date Type Department Care Team (Late st Contact Info) Description 01/26/2019 Scanned Document [facility] Health Information Management [address] [place] [address] External, Provider Social History Tobacco Use Types [...] Description 09/30/2024 8:00 PM EDT Procedure visit [facility] [address] [place] [address] [address] [place] [address] 10/31/2024 1:00 PM EDT Telemedicine Cancer Center at [facility] [address] [facility] [address] [place] [address] Ronald Mills MD 240 [facility] A1 [place] [address] documented as of this encounter Procedures Procedure [...] documented as of this encounter Care Teams Community Arts Worker Relationship Specialty Start Date End Date Caitlyn Bowie MD [facility] 1 [place] [address] PCP - General Internal Medicine 05/06/21 Henry Kelly MD Pulmonary Department 175 [facility], [address] [place] [address] Physician Pulmonary Disease 09/06/17 06/22/20 documented as of this encounter
--- OUTSIDE RECORDS SUMMARY | 2024-09-04 17:39 | XMS_ITS | Encounter Summary ---
Author Organization [facility] and [facility] Address [address] [place] [address] Care Team Providers Care Cost Accounting Manager Name Role Phone Caitlyn Bowie MD Primary Care Provider +1- [phone] Encounter Details Date Type Department Care Team (Late st Contact Info) Description 03/24/2021 Scanned Document INTERFACE DEFAULT [address] [place] [address] System, Provider Not In Social History Tobacco [...] Description 09/30/2024 8:00 PM EDT Procedure visit [facility] [address] [place] [address] [address] [place] [address] 10/31/2024 1:00 PM EDT Telemedicine Cancer Center at [facility] 240 [facility] [address] [place] [address] Ronald Mills MD 240 [facility] [address]1 [place] [address] documented as of this encounter Visit Diagnoses Not on filedocumented in this encounter Additional Health Concerns Infection Onset Date Last Indicated Resolved Time COVID-19 03/05/2022 03/05/2022 03/15/2022 7:18 PM EDT Assessment Noted Time PHQ-9 Depression Total Score: 2 11/07/19 19 2:06 PM EDT documented as of this encounter Care Teams Cost Accounting Manager Relationship Specialty Start Date End Date Caitlyn Bowie MD [address] [address] PCP - General Internal Medicine 05/06/21 documented as of this encounter
--- OUTSIDE RECORDS SUMMARY | 2024-09-04 17:39 | XMS_ITS | Encounter Summary ---
Author Organization [facility] and [facility] Address [address] [place] [address] Care Team Providers Care Canine Service Teacher Name Role Phone Caitlyn Bowie MD Primary Care Provider +1- [phone] Encounter Details Date Type Department Care Team (Late st Contact Info) Description 01/28/2019 Scanned Document [facility] Health Information Management [address] [place] [phone] External, Provider Social History Tobacco Use Types [...] Description 09/30/2024 8:00 PM EDT Procedure visit [facility] [address] [place] [address] [address] [place] [address] 10/31/2024 1:00 PM EDT Telemedicine Cancer Center at [facility] 240 [facility] [address] [place] [address] Ronald Mills MD 240 [facility] [address]1 [place] [address] documented as of this encounter Visit Diagnoses Not on filedocumented in this encounter Additional Health Concerns Infection Onset Date Last Indicated Resolved Time COVID-19 03/05/2022 03/05/2022 03/15/2022 7:18 PM EDT Assessment Noted Time PHQ-9 Depression Total Score: 2 11/07/19 19 2:06 PM EDT documented as of this encounter Care Teams Canine Service Teacher Relationship Specialty Start Date End Date Caitlyn Bowie MD 3400 [facility] 1 [place] [address] PCP - General Internal Medicine 05/06/21 Henry Kelly MD Pulmonary Department [address] [place] [address], [address] [place] [address] Physician Pulmonary Disease 09/06/17 06/22/20 documented as of this encounter
--- OUTSIDE RECORDS SUMMARY | 2024-09-04 17:39 | XMS_ITS | Encounter Summary ---
Author Organization [facility] and [facility] Address [address] [place] [address] Care Team Providers Care Night Monitor Name Role Phone Caitlyn Bowie MD Primary Care Provider +1- [phone] Encounter Details Date Type Department Care Team (Late st Contact Info) Description 12/16/2015 Scanned Document [facility] Health Information Management [address] [place] [address] External, Provider Social History Tobacco Use Types [...] Description 09/30/2024 8:00 PM EDT Procedure visit [facility] [address] [place] [address] [address] [place] [address] 10/31/2024 1:00 PM EDT Telemedicine Cancer Center at [facility] 240 [facility] [address] [place], [place] [address] Ronald Mills MD 240 [facility] A1 [place] [address] documented as of this encounter Procedures Procedure Name Priority Date/Time Associated Diagnosis Comments US RESULT SCAN Routine 12/16/2015 documented in this encounter Results * US Result Scan (12/16/2015) us Provider External IMG SCAN REPORTS Edited Result - Final [facility] documented in this encounter Visit Diagnoses Not on filedocumented in this encounter Additional Health Concerns Infection Onset Date Last Indicated Resolved Time COVID-19 03/05/2022 03/05/2022 03/15/2022 7:18 PM EDT documented as of this encounter Care Teams Night Monitor Relationship Specialty Start Date End Date Caitlyn Bowie MD 3400 [facility] 1 [place] [address] PCP - General Internal Medicine 05/06/21 Henry Kelly MD Pulmonary Department 175 [facility], [address] [place] [address] Physician Pulmonary Disease 09/06/17 06/22/20 documented as of this encounter
--- OUTSIDE RECORDS SUMMARY | 2024-09-04 17:39 | XMS_ITS | Encounter Summary ---
Author Organization [facility] and [facility] Address [address] [place] [address] Care Team Providers Care Property Maintenance Supervisor Name Role Phone Caitlyn Bowie MD Primary Care Provider +1- [phone] Encounter Details Date Type Department Care Team (Late st Contact Info) Description 12/29/2021 Telephone [facility] at [address] - [address] [address] Ronald Mills MD [address] [place] [address] Social History Tobacco Use Types Packs/Day [...] not sure where the blood's coming from. [phone] documented in this encounter Plan of Treatment Upcoming Encounters Date Type Department Care Team (Late st Contact Info) Description 09/30/2024 8:00 PM EDT Procedure visit [facility] [address] [place] [address] [address] [place] [address] 10/31/2024 1:00 PM EDT Telemedicine Cancer Center at [facility] 240 [facility] [address] [place], [place] [address] Ronald Mills MD 240 [facility] A1 [place] [address] documented as of this encounter Visit Diagnoses Not on filedocumented in this encounter Additional Health Concerns Infection Onset Date Last Indicated Resolved Time COVID-19 03/05/2022 03/05/2022 03/15/2022 7:18 PM EDT Assessment Noted Time PHQ-9 Depression Total Score: 2 11/07/19 19 2:06 PM EDT documented as of this encounter Care Teams Property Maintenance Supervisor Relationship Specialty Start Date End Date Caitlyn Bowie MD [address] [address] PCP - General Internal Medicine 05/06/21 documented as of this encounter
--- OUTSIDE RECORDS SUMMARY | 2024-09-04 17:39 | XMS_ITS | Encounter Summary ---
Author Organization [facility] and [facility] Address [address] [place] [address] Care Team Providers Care Immigration Specialist Name Role Phone Caitlyn Bowie MD Primary Care Provider +1- [phone] Encounter Details Date Type Department Care Team (Late st Contact Info) Description 04/02/2021 Scanned Document INTERFACE DEFAULT [address] [place] [address] System, Provider Not In Social History Tobacco [...] Description 09/30/2024 8:00 PM EDT Procedure visit [facility] [address] [place] [address] [address] [place] [address] 10/31/2024 1:00 PM EDT Telemedicine [facility] 240 [facility] [address] [place] [address] Ronald Mills MD 240 [facility] A1 [place] [address] documented as of this encounter Procedures Procedure [...] documented as of this encounter Care Teams Immigration Specialist Relationship Specialty Start Date End Date Caitlyn Bowie MD [address] [address] PCP - General Internal Medicine 05/06/21 documented as of this encounter
--- OUTSIDE RECORDS SUMMARY | 2024-09-04 17:39 | XMS_ITS | Encounter Summary ---
Author Organization [facility] Address [address] [place] [address] Care Team Providers Care Paint Laboratory Technician Name Role Phone Pcp, No Primary Care Provider Brennan Mario MD Primary Care Provider Caitlyn Bowie MD Primary Care Provider +1- [phone] Encounter Details Date Type Department Care Team (Late st Contact Info) Description 01/04/2022 Scanned Document [facility] Neurology Ophthalmology [address] [address] Yary Whitten DO [address] [place] [address] Social History Tobacco Use Types Packs/Day [...] on filedocumented in this encounter Care Teams Paint Laboratory Technician Relationship Specialty Start Date End Date Pcp, No PCP - General General Medicine 10/04/21 07/18/22 Brennan Burnett MD [address] [place] [address] PCP - General 07/19/22 03/19/23 Caitlyn Bowie MD 3400 [place] [address] PCP - General Internal Medicine 03/20/23 documented as of this encounter
--- OUTSIDE RECORDS SUMMARY | 2024-09-04 17:39 | XMS_ITS | Encounter Summary ---
Author Organization [facility] and [facility] Address [address] [place] [address] Care Team Providers Care Crewman Main Battle Tank Name Role Phone Caitlyn Bowie MD Primary Care Provider +1- [phone] Encounter Details Date Type Department Care Team (Late Contact Info) Description 04/11/2021 Scanned Document [facility] Health Information Management [address] [place] [address] External, Provider Social History Tobacco Use Types [...] Description 09/30/2024 8:00 PM EDT Procedure visit [facility] [address] [place] [address] [address] [place] [address] 10/31/2024 1:00 PM EDT Telemedicine Cancer Center at [facility] 240 [facility] [address] [place] [address] oRnald Mills MD 240 [facility] A1 [place] [address] documented as of this encounter Visit Diagnoses Not on filedocumented in this encounter Additional Health Concerns Infection Onset Date Last Indicated Resolved Time COVID-19 03/05/2022 03/05/2022 03/15/2022 7:18 PM EDT Assessment Noted Time PHQ-9 Depression Total Score: 2 11/07/19 19 2:06 PM EDT documented as of this encounter Care Teams Crewman Main Battle Tank Relationship Specialty Start Date End Date Caitlyn Bowie MD [address] [address] PCP - General Internal Medicine 05/06/21 documented as of this encounter
--- OUTSIDE RECORDS SUMMARY | 2024-09-04 17:39 | XMS_ITS | Encounter Summary ---
Author Organization [facility] and [facility] Address [address] [place] [address] Care Team Providers Care Intake Assessor Name Role Phone Caitlyn Bowie MD Primary Care Provider +1- [phone] Encounter Details Date Type Department Care Team (Late st Contact Info) Description 03/14/2021 Scanned Document INTERFACE DEFAULT [address] [place] [address] System, Provider Not In Social History Tobacco [...] Description 09/30/2024 8:00 PM EDT Procedure visit [facility] [address] [place] [address] [address] [place] [address] 10/31/2024 1:00 PM EDT Telemedicine Cancer Center at [facility] 240 [facility] [address] [place] [address] Ronald Mills MD 240 [facility] A1 [place] [address] documented as of this encounter Procedures Procedure [...] documented as of this encounter Care Teams Intake Assessor Relationship Specialty Start Date End Date Caitlyn Bowie MD [address] [address] PCP - General Internal Medicine 05/06/21 documented as of this encounter
--- OUTSIDE RECORDS SUMMARY | 2024-09-04 17:39 | XMS_ITS | Encounter Summary ---
Author Organization [facility] and [facility] Address [address] [place] [address] Care Team Providers Care Pipe Out Worker Name Role Phone Caitlyn Bowie MD Primary Care Provider +1- [phone] Encounter Details Date Type Department Care Team (Late st Contact Info) Description 04/10/2021 Scanned Document INTERFACE DEFAULT [address] [place] [address] System, Provider Not In Social History Tobacco [...] Description 09/30/2024 8:00 PM EDT Procedure visit [facility] [address] [place] [address] [address] [place] [address] 10/31/2024 1:00 PM EDT [facility]medicine [facility] 240 [facility] [address] [place] [address] Ronald Mills MD 240 [facility] A1 [place] [address] documented as of this encounter Procedures Procedure [...] documented as of this encounter Care Teams Pipe Out Worker Relationship Specialty Start Date End Date Caitlyn Bowie MD [address] [address] PCP - General Internal Medicine 05/06/21 documented as of this encounter
--- OUTSIDE RECORDS SUMMARY | 2024-09-04 17:39 | XMS_ITS | Encounter Summary ---
Author Organization [facility] and [facility] Address [address] [place] [address] Care Team Providers Care Bindery Operator Name Role Phone Caitlyn Bowie MD Primary Care Provider +1- [phone] Encounter Details Date Type Department Care Team (Late st Contact Info) Description 12/03/2015 Scanned Document [facility] Health Information Management [address] [place] [address] External, Provider Social History Tobacco Use Types [...] Description 09/30/2024 8:00 PM EDT Procedure visit [facility] [address] [place] [address] [address] [place] [address] 10/31/2024 1:00 PM EDT Telemedicine Cancer Center at [facility] 240 [facility] [address] [place], [place] [address] Ronald Mills MD 240 [facility] A1 [place] [address] documented as of this encounter Procedures Procedure Name Priority Date/Time Associated Diagnosis Comments LAB SCAN Routine 12/03/2015 documented in this encounter Results * Lab Scan (12/03/2015) Blood specimen (specimen) us Provider External LAB BLOOD ORDERABLES Edited Re sult - Final [facility] [place], [email or web address]] documented in this encounter Visit Diagnoses Not on filedocumented in this encounter Additional Health Concerns Infection Onset Date Last Indicated Resolved Time COVID-19 03/05/2022 03/05/2022 03/15/2022 7:18 PM EDT documented as of this encounter Care Teams Bindery Operator Relationship Specialty Start Date End Date Caitlyn Bowie MD 3400 [facility] 1 [place] [address] PCP - General Internal Medicine 05/06/21 Henry Kelly MD Pulmonary Department 175 [facility], [address] [place] [address] Physician Pulmonary Disease 09/06/17 06/22/20 documented as of this encounter
--- OUTSIDE RECORDS SUMMARY | 2024-09-04 17:39 | XMS_ITS | Clinical Summary ---
Author Organization 175 [facility] Address [address] [place] [address] Phone Care Team Providers Care Team Truck Driver Name Role Phone Brennan Burnett Primary Care Provider [phone] Allergies Active Allergy Reactions Criticality Noted Date [...] 20 mg as needed by her previous rehabilitation tech which she has taken sporadically. I have asked her to take this daily to see if this improves her symptoms and she has a follow-up appointment with Dr. Shah on September 16 which she will keep. We also had a long conversation regarding the fact that she is seeing 3 different rehabilitation tech for the same problems. We informed her [...] continues to see Dr. Avalos or her rehabilitation tech at [facility]. She verbalized understanding of this and [...] Team Description 08/26/2024 10:30 AM EST Telemedicine [facility] 175 [facility] [address] [place] [phone] Ayanna Jaffe MD Anxiety (Primary Dx); Memory change; Gait abnormality; White matter lesion of central nervous system 08/23/2024 1:20 PM EST Office Visit Gastroenterology - [address] [phone] Saima Amor, AERIAL INSTALLER Gastroesophageal reflux disease, unspecified whether esophagitis present (Primary Dx); Constipation, unspecified constipation type 08/19/2024 Telephone [facility] [address] [place] [phone] Daphne Alarcon, FIELD CANE SCALER returning pt call 08/08/2024 Telephone [facility] [address] [phone] Daphne Alarcon, FIELD CANE SCALER Memory Loss (Returned pt call from 08/07 about recent missed visit. Pt is not interested in in person f/u right now due to cold weather and other medical issues. She will f/u with medical team if she wants to address cognitive status in future) 07/04/2024 Telephone Gastroenterology - [address] [phone] Tim Gomes MD 07/01/2024 Telephone Gastroenterology - [address] [phone] Tim Gomes MD 06/20/2024 9:30 AM EST Evaluation [facility] [address] [place] [phone] Daphne Alarcon, FIELD CANE SCALER Cognitive communication disorder (Primary Dx); White matter lesion of central nervous system; Unsp symptoms and signs w cognitive functions and awareness; Gait abnormality 06/20/2024 Plan of Care Documentation [facility] [address] [phone] 06/15/2024 11:51 AM EST - 06/15/2024 4:05 PM EST Emergency [facility] Emergency [address] [place] [address] Jovana Cruz MD Pain (Primary [...] PROCEDURE: HISTORICAL TONSILLECTOMY OTHER SURGICAL HISTORY PROCEDURE: TX RMVL LUNG XCP TOT PNEUMONECTOMY SLEEVE LOBECTOMY; [...] pathology report UPPER GASTROINTESTINAL ENDOSCOPY 05/03/2015 PROCEDURE: TX UPPER GI ENDOSCOPY PERFORMED MITRAL CLIP PROCEDURE Medical History Medical History Date Comments Akathisia 04/15/2013 DX:Akathisia Anxiety 12/07/2016 DX:Anxiety Bronchiectasis ([facility]) 08/08/2017 DX:Bron chiectasis ([facility]) Cataract 08/26/2014 DX:Cataract Chronic obstructive pulmonar y disease ([facility]) 04/13/2017 DX:Chronic obstructive pulmo nary disease ([facility]) 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 DX:Complica cole migraine Congestive heart failure ([facility]) 04/04/2017 DX:Congestive heart failure (HCC) History of [...] Mx LLL resection, Chemo, RT, Cisplatin, Vinorelbine [phone] 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 DX:Antiphospholipid [...] Info) Description 09/09/2024 3:30 PM EST Treatment [facility] [address] [phone] Daphne Alarcon, FIELD CANE SCALER Health Maintenance Due Date Last Done Comments [...] Author [facility] General No Daphne Alarcon, FIELD CANE SCALER Note: Pt will improve cognitive linguistic function to participate and communicate in iADLs mod I [facility] General No Daphne Alarcon, FIELD CANE SCALER Note: Pt will participate with development of [...] LAB HEMETOLOGY METHOD 06/15/2024 1:39 PM EST [facility] RBC 3.70(L) 3.80 - 4.80 M/mcL LAB HEMETOLOGY METHOD 06/15/2024 1:39 PM EST [facility] Hemoglobin 12.0 11.5 - 16.0 g/dL LAB HEMETOLOGY METHOD 06/15/2024 1:39 PM [facility] Hematocrit 37.5 35.0 - 47.0 % LAB HEMETOLOGY METHOD 06/15/2024 1:39 PM [facility] MCV 100.3(H) 79.0 - 98.0 FL LAB HEMETOLOGY METHOD 06/15/2024 1:39 PM [facility] MCH 32.1(H) 27.0 - 32.0 pcg LAB HEMETOLOGY METHOD 06/15/2024 1:39 PM [facility] MCHC 32.0 32.0 - 37.0 g/dL LAB HEMETOLOGY METHOD 06/15/2024 1:39 PM [facility] RDW 14.3 11.0 - 15.0 % LAB HEMETOLOGY METHOD 06/15/2024 1:39 PM [facility] Platelets 201 130 - 400 K/mcL LAB HEMETOLOGY METHOD 06/15/2024 1:39 PM [facility] MPV 11.1(H) 7.0 - 11.0 FL LAB HEMETOLOGY METHOD 06/15/2024 1:39 PM [facility] NRBC 0.0 <1.0 % LAB HEMETOLOGY METHOD 06/15/2024 1:39 PM [facility] NRBC Absolute 0.00 <0.10 K/mcL LAB HEMETOLOGY METHOD 06/15/2024 1:39 PM [facility] Neutrophils Relative 85.5 % LAB HEMETOLOGY METHOD 06/15/2024 1:39 PM [facility] Lymphocytes Relative 4.8 % LAB HEMETOLOGY METHOD 06/15/2024 1:39 PM [facility] Monocytes Relative 7.4 % LAB HEMETOLOGY METHOD 06/15/2024 1:39 PM [facility] Eosinophils Relative 1.1 % LAB HEMETOLOGY METHOD 06/15/2024 1:39 PM EST [facility] Basophils Relative 0.4 % LAB HEMETOLOGY METHOD 06/15/2024 1:39 PM EST [facility] Immature Granulocytes Relative 0.8 % LAB HEMETOLOGY METHOD 06/15/2024 1:39 PM [facility] Neutrophils Absolute 11.28(H) 1.50 - 7.00 K/mcL LAB HEMETOLOGY METHOD 06/15/2024 1:39 PM EST [facility] Lymphocytes Absolute 0.63(L) 1.00 - 5.00 K/mcL LAB HEMETOLOGY METHOD 06/15/2024 1:39 PM [facility] Monocytes Absolute 0.98 0.20 - 1.00 K/mcL LAB HEMETOLOGY METHOD 06/15/2024 1:39 PM [facility] Eosinophils Absolute 0.14 0.00 - 0.50 K/mcL LAB HEMETOLOGY METHOD 06/15/2024 1:39 PM EST [facility] Basophils Absolute 0.05 0.00 - 0.20 K/mcL LAB HEMETOLOGY METHOD 06/15/2024 1:39 PM EST [facility] Immature Granulocytes Absolute 0.11(H) 0.00 - 0.03 K/mcL LAB HEMETOLOGY METHOD 06/15/2024 1:39 PM [facility] Blood Venous blood specimen / Unknown Venipuncture / Unknown 06/15/2024 1:26 PM EST 06/15/2024 1:31 PM EST us Jovana Cruz MD LAB BLOOD ORDERABLES Final Resul t [facility] [address] [place] [address], * (ABNORMAL) Protime-INR (06/15/2024 1:26 PM EST) Protime 22.9(H) 10.6 - 13.9 sec LAB COAGULATION METHOD 06/15/2024 1:43 PM EST [facility] INR 1.8 LAB COAGULATION METHOD 06/15/2024 1:43 PM [facility] Blood Venous blood specimen / Unknown Venipuncture / Unknown 06/15/2024 1:26 PM EST 06/15/2024 1:31 PM EST us Jovana Cruz MD LAB BLOOD ORDERABLES Final Resul t [facility] [address] [place] [address], * (ABNORMAL) Comprehensive metabolic panel (06/15/2024 1:26 PM EST) [facility] Sodium 140 133 - 145 mmol/L LAB CHEMISTRY METHOD 06/15/2024 2:10 PM [facility] Potassium 4.7 3.5 - 5.5 mmol/L LAB CHEMISTRY METHOD 06/15/2024 2:10 PM [facility] Chloride 102 96 - 110 mmol/L LAB CHEMISTRY METHOD 06/15/2024 2:10 PM [facility] CO2 34(H) 21 - 32 mmol/L LAB CHEMISTRY METHOD 06/15/2024 2:10 PM [facility] Anion Gap 4 3 - 11 LAB CHEMISTRY METHOD 06/15/2024 2:10 PM [facility] Glucose 95 70 - 100 mg/dL LAB CHEMISTRY METHOD 06/15/2024 2:10 PM [facility] BUN 29(H) 5 - 25 mg/dL LAB CHEMISTRY METHOD 06/15/2024 2:10 PM [facility] Creatinine 0.95 0.50 - 1.10 mg/dL LAB CHEMISTRY METHOD 06/15/2024 2:10 PM [facility] eGFR 60 >=60 mL/min/1. 73m2 LAB CHEMISTRY METHOD 06/15/2024 2:10 PM [facility] Comment:Calculation based on the??Chronic Kidney Disease Epidemiology Collaboration (CKD-EPI) equation refit??without adjustment for race. BUN/Creatinine Ratio 30.5 LAB CHEMISTRY METHOD 06/15/2024 2:10 PM [facility] Calcium 10.1 8.5 - 10.5 mg/dL LAB CHEMISTRY METHOD 06/15/2024 2:10 PM [facility] AST (SGOT) 35 10 - 42 unit/L LAB CHEMISTRY METHOD 06/15/2024 2:10 PM [facility] ALT (SGPT) 39 10 - 60 unit/L LAB CHEMISTRY METHOD 06/15/2024 2:10 PM [facility] Alkaline Phosphatase 83 42 - 121 unit/L LAB CHEMISTRY METHOD 06/15/2024 2:10 PM [facility] Total Protein 6.4 6.0 - 8.0 g/dL LAB CHEMISTRY METHOD 06/15/2024 2:10 PM [facility] Albumin 3.3 3.2 - 5.0 g/dL LAB CHEMISTRY METHOD 06/15/2024 2:10 PM [facility] Total Bilirubin 0.4 0.0 - 1.4 mg/dL LAB CHEMISTRY METHOD 06/15/2024 2:10 PM EST [facility] Blood Venous blood specimen / Unknown Venipuncture / Unknown 06/15/2024 1:26 PM EST 06/15/2024 1:32 PM EST us Jovana Cruz MD LAB BLOOD ORDERABLES Final Resul t [facility] [address] [place] [address], * Vascular US Duplex Lower Extremity Venous Left (06/15/2024 12:24 PM EST) Anatomical Region Laterality Modality Vascular, Abdomen Ultrasound 06/15/2024 12:2 0 PM EST Impressions 06/15/2024 12:20 PM EST Impression: No evidence of deep vein thrombosis in the left femoral-popliteal venous segment. [id number] -------- FINAL REPORT -------- Dictated By: Fawn Levin Dictated Date: 06/15/2024 12:20 ET Assigned Physician: Fawn Levin Reviewed and Electronically Signed By: Fawn Levin Signed Date: 06/15/2024 12:20 ET Workstation ID: [id number] Transcribed By: Self Edit Transcribed Date: 06/15/2024 [...] vein thrombosis in the leftfemoral-popliteal venous segment. [id number] -------- FINAL REPORT -------- Dictated By: Fawn Levin Dictated Date: 06/15/2024 12:20 ET Assigned Physician: Fawn Levin Reviewed and Electronically Signed By: Fawn Levin Signed Date: 06/15/2024 12:20 ET Workstation ID: [id number] Transcribed By: Self Edit Transcribed Date: 06/15/2024 12:20 ET us Henry Carrillo DO CV VASCULAR PROCEDURES Final R esult from Last 3 Months Insurance MEDICARE [facility] Advance Directives Documents on File Type Date Recorded Patient Bottle Washer Expl anation Health Care Decision (hx) 10/18/2013 [...] (hx) 10/04/2013 AD LACEY DIRECTIVE Care Teams Team Truck Driver Relationship Specialty Start Date End Date Brennan Burnett MD [address] [place] [address] PCP - General 05/06/24
--- OUTSIDE RECORDS SUMMARY | 2024-09-04 17:39 | XMS_ITS | Encounter Summary ---
Author Organization [facility] and [facility] Address [address] [place] [phone] Care Team Providers Care Press Clippings Cutter And Paster Name Role Phone Caitlyn Bowie MD Primary Care Provider [phone]- [phone] Encounter Details Date Type Department Care Team (Late st Contact Info) Description 03/23/2021 Scanned Document INTERFACE DEFAULT [address] [place] [phone] System, Provider Not In Social History Tobacco [...] Description 09/30/2024 8:00 PM EDT Procedure visit [facility] [address] [place] [address] [address] [place] [phone] 10/31/2024 1:00 PM EDT Telemedicine [facility] [address] [facility] [address] [place] [address] Ronald Mills MD 240 [facility] [address] [place] [phone] documented as of this encounter Procedures Procedure [...] documented as of this encounter Care Teams Press Clippings Cutter And Paster Relationship Specialty Start Date End Date Caitlyn Bwoie MD [facility] [address] [phone] PCP - General Internal Medicine 05/06/21 documented as of this encounter
--- OUTSIDE RECORDS SUMMARY | 2024-09-04 17:39 | XMS_ITS | Encounter Summary ---
Author Organization [facility] and [facility] Address [address] [place] [phone] Care Team Providers Care Ssis Architect Name Role Phone Caitlyn Bowie MD Primary Care Provider +1- [phone] Encounter Details Date Type Department Care Team (Late st Contact Info) Description 04/12/2021 Scanned Document INTERFACE DEFAULT [address] [place] [address] System, Provider Not In Social History Tobacco [...] Description 09/30/2024 8:00 PM EDT Procedure visit [facility] [address] [place] [address] [address] [place] [phone] 10/31/2024 1:00 PM EDT Telemedicine [facility] 240 [facility] [address] [place] [address] Ronald Mills MD 240 [facility] [address] [place] [phone] documented as of this encounter Procedures Procedure [...] documented as of this encounter Care Teams Ssis Architect Relationship Specialty Start Date End Date Caitlyn Bowie MD [facility] [address] [phone] PCP - General Internal Medicine 05/06/21 documented as of this encounter
--- OUTSIDE RECORDS SUMMARY | 2024-09-04 17:39 | XMS_ITS | Encounter Summary ---
Author Organization [facility] and [facility] Address [address] [place] [phone] Care Team Providers Care Box Coverer Hand Name Role Phone Caitlyn Bowie MD Primary Care Provider [phone]- [phone] Encounter Details Date Type Department Care Team (Late st Contact Info) Description 01/13/2019 Scanned Document [facility] Health Information Management [address] [place] [address] External, Provider Social History Tobacco Use Types [...] Description 09/30/2024 8:00 PM EDT Procedure visit [facility] [address] [place] [address] [address] [place] [phone] 10/31/2024 1:00 PM EDT Telemedicine [facility] [address] [facility] [address] [place] [address] Ronald Mills MD 240 [facility] [address] [place] [phone] documented as of this encounter Procedures Procedure [...] documented as of this encounter Care Teams Box Coverer Hand Relationship Specialty Start Date End Date Caitlyn Bowie MD 3400 [facility] 1 [place] [address] PCP - General Internal Medicine 05/06/21 Henry Kelly MD Pulmonary Department 175 [facility], [address] [place] [address] Physician Pulmonary Disease 09/06/17 06/22/20 documented as of this encounter
--- OUTSIDE RECORDS SUMMARY | 2024-09-04 17:39 | XMS_ITS | Encounter Summary ---
Author Organization [facility] and [facility] Address [address] [place] [phone] Care Team Providers Care Actuary Name Role Phone Caitlyn Bowie MD Primary Care Provider +1- [phone] Encounter Details Date Type Department Care Team (Late st Contact Info) Description 01/17/2019 Scanned Document COUNTS INCLUDE 234 [facility] AT [facility] Health Information Management [address] [place] [address] External, Provider Social History Tobacco Use Types [...] Description 09/30/2024 8:00 PM EDT Procedure visit [facility] [address] [place] [address] [address] [place] [phone] 10/31/2024 1:00 PM EDT Telemedicine [facility] [place] [facility] [address] [facility] [address] [place] [address] Ronald Mills MD 240 [facility] [address] [place] [phone] documented as of this encounter Procedures Procedure [...] documented as of this encounter Care Teams Actuary Relationship Specialty Start Date End Date Caitlyn Bowie MD 3400 [facility] 1 [place] [address] PCP - General Internal Medicine 05/06/21 Henry Kelly MD Pulmonary Department 175 [facility] [place] [address] Physician Pulmonary Disease 09/06/17 06/22/20 documented as of this encounter
--- OUTSIDE RECORDS SUMMARY | 2024-09-04 17:39 | XMS_ITS | Encounter Summary ---
Author Organization [facility] and [facility] Address [address] [place] [address] Care Team Providers Care Division Operations Specialist Name Role Phone Caitlyn Bowie MD Primary Care Provider +1- [phone] Encounter Details Date Type Department Care Team (Late st Contact Info) Description 01/08/2022 Scanned Document INTERFACE DEFAULT [address] [place] [address] System, Provider Not In Social History Tobacco [...] Description 09/30/2024 8:00 PM EDT Procedure visit [facility] [address] [place] [address] [address] [place] [phone] 10/31/2024 1:00 PM EDT Telemedicine [facility] at [facility] 240 [facility] [address] [place] [address] Ronald Mills MD 240 [facility] [address] [place] [address] documented as of this encounter Procedures Procedure [...] as of this encounter Care Teams Division Operations Specialist Relationship Specialty Start Date End Date Caitlyn Bowie MD [facility] [address] [address] PCP - General Internal Medicine 05/06/21 documented as of this encounter
--- OUTSIDE RECORDS SUMMARY | 2024-09-04 17:39 | XMS_ITS | Encounter Summary ---
Author Organization [facility] and [facility] Address [address] [place] [address] Care Team Providers Care Wet Press Tender Name Role Phone Caitlyn Bowie MD Primary Care Provider +1- [phone] Encounter Details Date Type Department Care Team (Late st Contact Info) Description 12/01/2015 Scanned Document [facility] Health Information Management [address] [place] [address] External, Provider Social History Tobacco Use Types [...] Description 09/30/2024 8:00 PM EDT Procedure visit [facility] [address] [place] [address] [address] [place] [address] 10/31/2024 1:00 PM EDT Telemedicine [facility] at [facility] 240 [facility] [address] [place], [place] [address] Ronald Mills MD 240 [place] [facility] [address] [place] [phone] documented as of this encounter Procedures Procedure Name Priority Date/Time Associated Diagnosis Comments CT RESULT SCAN Routine 12/01/2015 documented in this encounter Results * CT Result Scan (12/01/2015) us Provider External IMG SCAN REPORTS Edited Result - Final [facility] [place], [facility] documented in this encounter Visit Diagnoses Not on filedocumented in this encounter Additional Health Concerns Infection Onset Date Last Indicated Resolved Time COVID-19 03/05/2022 03/05/2022 03/15/2022 7:18 PM EDT documented as of this encounter Care Teams Wet Press Tender Relationship Specialty Start Date End Date Caitlyn Bowie MD 3400 [facility] 1 [place] [address] PCP - General Internal Medicine 05/06/21 Henry Kelly MD Pulmonary Department [address] [facility], [address] [place] [address] Physician Pulmonary Disease 09/06/17 06/22/20 documented as of this encounter
--- OUTSIDE RECORDS SUMMARY | 2024-09-04 17:39 | XMS_ITS | Encounter Summary ---
Author Organization [facility] Address [address] [place] [address] Care Team Providers Care Energy Conservation Engineer Name Role Phone Caitlyn Bowie MD Primary Care Provider +1- [phone] Encounter Details Date Type Department Care Team (Late st Contact Info) Description 03/20/2023 Scanned Document [facility] [address] [place] [address] Caitlyn Bowie MD [address] [place] [address] Social History Tobacco Use Types Packs/Day Years [...] on filedocumented in this encounter Care Teams Energy Conservation Engineer Relationship Specialty Start Date End Date Caitlyn Bowie MD [address] [place] [address] PCP - General Internal Medicine 03/20/23 documented as of this encounter
--- OUTSIDE RECORDS SUMMARY | 2024-09-04 17:39 | XMS_ITS | Encounter Summary ---
Author Organization [facility] and [facility] Address [address] [place] [address] Care Team Providers Care Assisted Living Care Manager Name Role Phone Caitlyn Bowie MD Primary Care Provider +1- [phone] Encounter Details Date Type Department Care Team (Late st Contact Info) Description 04/11/2021 Scanned Document INTERFACE DEFAULT [address] [place] [phone] System, Provider Not In Social History Tobacco [...] EDT Procedure visit [facility] [address] [place] [address] [address] [place] [address] 10/31/2024 1:00 PM EDT Telemedicine [facility] 240 [facility] [address] [place] [address] Ronald Mills MD 240 [facility] [address] [place] [phone] documented as of this encounter Procedures Procedure [...] documented as of this encounter Care Teams Assisted Living Care Manager Relationship Specialty Start Date End Date Caitlyn Bowie MD [facility] [address] [phone] PCP - General Internal Medicine 05/06/21 documented as of this encounter
--- OUTSIDE RECORDS SUMMARY | 2024-09-04 17:39 | XMS_ITS | Encounter Summary ---
Author Organization [facility] Address [address] [place] [phone] Care Team Providers Care Supervisor Public Message Service Name Role Phone Caitlyn Bowie MD Primary Care Provider +1- [phone] Encounter Details Date Type Department Care Team (Late st Contact Info) Description 04/22/2021 Scanned Document INTERFACE DEFAULT [address] [place] [address] System, Provider Not In Social History Tobacco [...] Description 09/30/2024 8:00 PM EDT Procedure visit [facility] [address] [place] [address] [address] [place] [address] 10/31/2024 1:00 PM EDT Telemedicine [facility] 240 [facility] [address] [place] [address] Ronald Mills MD 240 [facility] [address] [place] [address] documented as of this encounter Procedures Procedure [...] as of this encounter Care Teams Supervisor Public Message Service Relationship Specialty Start Date End Date Caitlyn Bowie MD [address] [address] PCP - General Internal Medicine 05/06/21 documented as of this encounter
--- OUTSIDE RECORDS SUMMARY | 2024-09-04 17:39 | XMS_ITS | Encounter Summary ---
Author Organization [facility] and [facility] Address [address] [place] [place] [address] Care Team Providers Care Instructional Material Director Name Role Phone Caitlyn Bowie MD Primary Care Provider +1- [phone] Encounter Details Date Type Department Care Team (Late st Contact Info) Description 04/12/2022 Scanned Document INTERFACE DEFAULT [address] [place] [address] System, Provider Not In Social History Tobacco [...] Description 09/30/2024 8:00 PM EDT Procedure visit [facility] [address] [place] [address] [address] [place] [address] 10/31/2024 1:00 PM EDT Telemedicine [facility] at [facility] 240 [facility] [address] [place] [address] Ronald Mills MD 240 [facility] A1 [place] [address] documented as of this encounter Procedures Procedure [...] documented as of this encounter Care Teams Instructional Material Director Relationship Specialty Start Date End Date Caitlyn Bowie MD [address] [address] PCP - General Internal Medicine 05/06/21 documented as of this encounter
--- OUTSIDE RECORDS SUMMARY | 2024-09-04 17:39 | XMS_ITS | Encounter Summary ---
Author Organization [facility] and [facility] Address [address] [place] [address] Care Team Providers Care Study Coordinator Name Role Phone Caitlyn Bowie MD Primary Care Provider +1- [phone] Encounter Details Date Type Department Care Team (Late Contact Info) Description 04/12/2022 Scanned Document [facility] Health Information Management [address] [place] [address] External, Provider Social History Tobacco Use Types [...] Description 09/30/2024 8:00 PM EDT Procedure visit [facility] [address] [place] [address] [address] [place] [address] 10/31/2024 1:00 PM EDT Telemedicine Cancer Center at [address] [place] [address] Ronald Mills MD 240 [facility] A1 [place] [address] documented as of this encounter [...] documented as of this encounter Care Teams Study Coordinator Relationship Specialty Start Date End Date Caitlyn Bowie MD [address] [place] [address] PCP - General Internal Medicine 05/06/21 documented as of this encounter
--- OUTSIDE RECORDS SUMMARY | 2024-09-04 17:39 | XMS_ITS | Encounter Summary ---
Author Organization [facility] and [facility] Address [address] [place] [address] Care Team Providers Care Administrative Office Assistant Name Role Phone Caitlyn Bowie MD Primary Care Provider +1- [phone] Reason for Visit * Reason Comments Results Encounter Details Date Type Department Care Team (Late st Contact Info) Description 03/15/2022 Telephone [facility] [address] [address] Ronald Mills MD [address] [place] [phone] Results Social History Tobacco Use Types [...] Description 09/30/2024 8:00 PM EDT Procedure visit [facility] [address] [place] [address] [address] [place] [address] 10/31/2024 1:00 PM EDT Telemedicine Cancer Center at [facility] 240 [facility] [address] [place] [address] Ronald Mills MD 240 [facility] [address]1 [place] [address] documented as of this encounter Visit Diagnoses Not on filedocumented in this encounter Additional Health Concerns Infection Onset Date Last Indicated Resolved Time COVID-19 03/05/2022 03/05/2022 03/15/2022 7:18 PM EDT Assessment Noted Time PHQ-9 Depression Total Score: 2 11/07/19 19 2:06 PM EDT documented as of this encounter Care Teams Administrative Office Assistant Relationship Specialty Start Date End Date Caitlyn Bowie MD [address] [address] PCP - General Internal Medicine 05/06/21 documented as of this encounter
--- OUTSIDE RECORDS SUMMARY | 2024-09-04 17:39 | XMS_ITS | Encounter Summary ---
Author Organization [facility] and [facility] Address [address] [place] [address] Care Team Providers Care Spring Former Name Role Phone Caitlyn Bowie MD Primary Care Provider +1- [phone] Encounter Details Date Type Department Care Team (Late st Contact Info) Description 11/03/2015 Scanned Document [facility] Health Information Management [address] [place] [phone] External, Provider Social History Tobacco Use Types [...] Description 09/30/2024 8:00 PM EDT Procedure visit [facility] [address] [place] [address] [address] [place] [address] 10/31/2024 1:00 PM EDT Telemedicine [facility] at [facility] 240 [facility] Building [address] [place], [place] [address] Ronald Mills MD 240 [facility] A1 [place] [address] documented as of this encounter Procedures Procedure Name Priority Date/Time Associated Diagnosis Comments US RESULT SCAN Routine 11/03/2015 documented in this encounter Results * US Result Scan (11/03/2015) us Provider External IMG SCAN REPORTS Edited Result - Final [facility] documented in this encounter Visit Diagnoses Not on filedocumented in this encounter Additional Health Concerns Infection Onset Date Last Indicated Resolved Time COVID-19 03/05/2022 03/05/2022 03/15/2022 7:18 PM EDT documented as of this encounter Care Teams Spring Former Relationship Specialty Start Date End Date Caitlyn [place]ie MD 3400 [facility] 1 [place] [address] PCP - General Internal Medicine 05/06/21 Henry Kelly MD Pulmonary Department 175 [facility], [address] [place] [address] Physician Pulmonary Disease 09/06/17 06/22/20 documented as of this encounter
--- OUTSIDE RECORDS SUMMARY | 2024-09-04 17:39 | XMS_ITS | Encounter Summary ---
Author Organization [facility] and [facility] Address [address] [place] [address] Care Team Providers Care Network Operations Project Manager Name Role Phone Caitlyn Bowie MD Primary Care Provider +1- [phone] Encounter Details Date Type Department Care Team (Late Contact Info) Description 03/02/2022 Scanned Document [facility] Health Information Management [address] [place] [address] External, Provider Social History Tobacco Use Types [...] Description 09/30/2024 8:00 PM EDT Procedure visit [facility] [address] [place] [address] [address] [place] [address] 10/31/2024 1:00 PM EDT Telemedicine Cancer Center at [address] [place] [address] Ronald Mills MD 240 [facility] A1 [place] [address] documented as of this encounter Visit Diagnoses Not on filedocumented in this encounter Additional Health Concerns Infection Onset Date Last Indicated Resolved Time COVID-19 03/05/2022 03/05/2022 03/15/2022 7:18 PM EDT Assessment Noted Time PHQ-9 Depression Total Score: 2 11/07/19 19 2:06 PM EDT documented as of this encounter Care Teams Network Operations Project Manager Relationship Specialty Start Date End Date Caitlyn Bowie MD [address] [address] PCP - General Internal Medicine 05/06/21 documented as of this encounter
--- OUTSIDE RECORDS SUMMARY | 2024-09-04 17:39 | XMS_ITS | Encounter Summary ---
Author Organization [facility] and [facility] Address [address] [place] [address] Care Team Providers Care Powerhouse Mechanic Supervisor Name Role Phone Caitlyn Bowie MD Primary Care Provider +1- [phone] Encounter Details Date Type Department Care Team (Late st Contact Info) Description 04/11/2019 Scanned Document [facility] Health Information Management [address] [place] [phone] External, Provider Social History Tobacco Use Types [...] Description 09/30/2024 8:00 PM EDT Procedure visit [facility] [address] [place] [address] [address] [place] [address] 10/31/2024 1:00 PM EDT Telemedicine Cancer Center at [facility] 240 [facility] [address] [place] [address] Ronald Mills MD 240 [facility] A1 [place] [address] documented as of this encounter Procedures Procedure [...] documented as of this encounter Care Teams Powerhouse Mechanic Supervisor Relationship Specialty Start Date End Date Caitlyn [place]ie MD 34[address] [facility] [address] 1 [place] [address] PCP - General Internal Medicine 05/06/21 Henry Kelly MD Pulmonary Department 175 [facility], [address] [place] [address] Physician Pulmonary Disease 09/06/17 06/22/20 documented as of this encounter
--- OUTSIDE RECORDS SUMMARY | 2024-09-04 17:39 | XMS_ITS | Encounter Summary ---
Author Organization [facility] and [facility] Address [address] [place] [address] Care Team Providers Care Compressor Stations Superintendent Name Role Phone Caitlyn [place]ie MD Primary Care Provider +1- [phone] Encounter Details Date Type Department Care Team (Late st Contact Info) Description 04/14/2022 Scanned Document INTERFACE DEFAULT [address] [place] [address] System, Provider Not In Social History Tobacco [...] Description 09/30/2024 8:00 PM EDT Procedure visit [facility] [address] [place] [address] [address] [place] [address] 10/31/2024 1:00 PM EDT Telemedicine [facility] at [facility] 240 [facility] [address] [place] [address] Ronald Mills MD 240 [facility] A1 [place] [address] documented as of this encounter Visit Diagnoses Not on filedocumented in this encounter Additional Health Concerns Assessment Noted Time PHQ-9 Depression Total Score: 2 11/07/19 19 2:06 PM EDT documented as of this encounter Care Teams Compressor Stations Superintendent Relationship Specialty Start Date End Date Caitlyn Bowie MD [address] [address] PCP - General Internal Medicine 05/06/21 documented as of this encounter
--- OUTSIDE RECORDS SUMMARY | 2024-09-04 17:39 | XMS_ITS | Encounter Summary ---
Author Organization [facility] and [facility] Address [address] [place] [address] Care Team Providers Care Senior Administrative Assistant Name Role Phone Caitlyn Bowie MD Primary Care Provider +1- [phone] Encounter Details Date Type Department Care Team (Late st Contact Info) Description 04/22/2019 Scanned Document [facility] Health Information Management [address] [place] [address] External, Provider Social History Tobacco Use Types [...] Description 09/30/2024 8:00 PM EDT Procedure visit [facility] [address] [place] [address] [address] [place] [address] 10/31/2024 1:00 PM EDT Telemedicine Cancer Center at [facility] 240 [facility] [address] [place] [address] Ronald Mills MD 240 [facility] A1 [place] [address] documented as of this encounter Visit Diagnoses Not on filedocumented in this encounter Additional Health Concerns Infection Onset Date Last Indicated Resolved Time COVID-19 03/05/2022 03/05/2022 03/15/2022 7:18 PM EDT Assessment Noted Time PHQ-9 Depression Total Score: 2 11/07/19 19 2:06 PM EDT documented as of this encounter Care Teams Senior Administrative Assistant Relationship Specialty Start Date End Date Caitlyn Bowie MD 3400 [facility] 1 [place] [address] PCP - General Internal Medicine 05/06/21 Henry Kelly MD Pulmonary Department [address] [place] [address], [address] [place] [address] Physician Pulmonary Disease 09/06/17 06/22/20 documented as of this encounter
--- OUTSIDE RECORDS SUMMARY | 2024-09-04 17:40 | XMS_ITS | Encounter Summary ---
Author Organization [facility] and [facility] Address [address] [place] [address] Care Team Providers Care Chart Computer Name Role Phone Caitlyn Bowie MD Primary Care Provider +1- [phone] Encounter Details Date Type Department Care Team (Late st Contact Info) Description 01/08/2019 Scanned Document [facility] Health Information Management [address] [place] [phone] External, Provider Social History Tobacco Use Types [...] 09/30/2024 8:00 PM EDT Procedure visit [facility] [address] [place] [address] [address] [place] [address] 10/31/2024 1:00 PM EDT Telemedicine Cancer Center at [facility] 240 [facility] [address] [place] [address] Ronald Mills MD 240 [facility] A1 [place] [address] documented as of this encounter Procedures Procedure [...] documented as of this encounter Care Teams Chart Computer Relationship Specialty Start Date End Date Caitlyn Bowie MD 3400 [facility] Max 1 [place] [address] PCP - General Internal Medicine 05/06/21 Henry Kelly MD Pulmonary Department 175 [facility], [address] [place] [address] Physician Pulmonary Disease 09/06/17 06/22/20 documented as of this encounter
--- OUTSIDE RECORDS SUMMARY | 2024-09-04 17:40 | XMS_ITS | Encounter Summary ---
Author Organization [facility] Address [address] [place] [address] Care Team Providers Care Shuttle Route Vehicle Operator Name Role Phone Caitlyn Bowie MD Primary Care Provider +1- [phone] Encounter Details Date Type Department Care Team (Late st Contact Info) Description 02/08/2016 Scanned Document [facility] Health Information Management [address] [place] [address] External, Provider Social History Tobacco Use Types [...] Description 09/30/2024 8:00 PM EDT Procedure visit [facility] [address] [place] [address] [address] [place] [address] 10/31/2024 1:00 PM EDT Telemedicine [facility] at [facility] 240 [facility] Building [address] [place], [place] [address] Ronald Mills MD 240 [facility] A1 [place] [address] documented as of this encounter Visit Diagnoses Not on filedocumented in this encounter Additional Health Concerns Infection Onset Date Last Indicated Resolved Time COVID-19 03/05/2022 03/05/2022 03/15/2022 7:18 PM EDT documented as of this encounter Care Teams Shuttle Route Vehicle Operator Relationship Specialty Start Date End Date Caitlyn [place]ie MD 3400 [facility] [address] 1 [place] [address] PCP - General Internal Medicine 05/06/21 Henry Kelly MD Pulmonary Department 175 [facility], [address] [place] [address] Physician Pulmonary Disease 09/06/17 06/22/20 documented as of this encounter
--- OUTSIDE RECORDS SUMMARY | 2024-09-04 17:40 | XMS_ITS | Clinical Summary ---
Author Organization [facility] Address [address] [place] [address] Care Team Providers Care Refrigerator Room Clerk Name Role Phone Caitlyn Bowie Primary Care Provider [phone] Allergies Active Allergy Reactions Criticality Noted Date [...] Throat tightness Throat tightness Throat tightness Ipratropium [place] Unknown Medium 12/18/2021 Isosorbide Mononitrate 11/23/2020 Other [...] topic Insurance MEDICARE PART A & B [facility] Care Teams Refrigerator Room Clerk Relationship Specialty Start Date End Date Caitlyn Bowie [address] [place] [address] PCP - General Internal Medicine 07/18/22
--- OUTSIDE RECORDS SUMMARY | 2024-09-04 17:40 | XMS_ITS | Encounter Summary ---
Author Organization [facility] and [facility] Address [address] [place] [address] Care Team Providers Care Director Of Development And Marketing Name Role Phone Caitlyn Bowie MD Primary Care Provider +1- [phone] Encounter Details Date Type Department Care Team (Late st Contact Info) Description 05/14/2015 Scanned Document [facility] Health Information Management [address] [place] [address] External, Provider Social History Tobacco Use Types [...] Description 09/30/2024 8:00 PM EDT Procedure visit [facility] [address] [place] [address] [address] [place] [address] 10/31/2024 1:00 PM EDT Telemedicine Cancer [facility] at [facility] 240 [facility] Building [address] [place], [place] [address] Ronald Mills MD 240 [facility] A1 [place] [address] documented as of this encounter Visit Diagnoses Not on filedocumented in this encounter Additional Health Concerns Infection Onset Date Last Indicated Resolved Time COVID-19 03/05/2022 03/05/2022 03/15/2022 7:18 PM EDT documented as of this encounter Care Teams Director Of Development And Marketing Relationship Specialty Start Date End Date Caitlyn Bowie MD 3400 [facility] Max 1 [place] [address] PCP - General Internal Medicine 05/06/21 Henry Kelly MD Pulmonary Department 175 [facility], [address] [place] [address] Physician Pulmonary Disease 09/06/17 06/22/20 documented as of this encounter
--- OUTSIDE RECORDS SUMMARY | 2024-09-04 17:40 | XMS_ITS | Encounter Summary ---
Author Organization [facility] and [facility] Address [address] [place] [address] Care Team Providers Care Manpower Development Manager Name Role Phone Caitlyn [place]ie MD Primary Care Provider +1- [phone] Encounter Details Date Type Department Care Team (Late Contact Info) Description 02/03/2021 Scanned Document [facility] Health Information Management [address] [place] [address] External, Provider Social History Tobacco Use Types [...] Description 09/30/2024 8:00 PM EDT Procedure visit [facility] [address] [place] [address] [address] [place] [address] 10/31/2024 1:00 PM EDT Telemedicine Cancer Center at [address] [place] [address] Ronald Mills MD 240 [facility] A1 [place] [address] documented as of this encounter [...] documented as of this encounter Care Teams Manpower Development Manager Relationship Specialty Start Date End Date Caitlyn [place]ie MD [address] [address] PCP - General Internal Medicine 05/06/21 documented as of this encounter
--- OUTSIDE RECORDS SUMMARY | 2024-09-04 17:40 | XMS_ITS | Encounter Summary ---
Author Organization [facility] and [facility] Address [address] [place] [address] Care Team Providers Care National Flatbed Truck Driver Name Role Phone Caitlyn Bowie MD Primary Care Provider +1- [phone] Encounter Details Date Type Department Care Team (Late st Contact Info) Description 12/28/2018 Scanned Document [facility] Health Information Management [address] [place] [address] External, Provider Social History Tobacco Use Types [...] Description 09/30/2024 8:00 PM EDT Procedure visit [facility] [address] [place] [address] [address] [place] [address] 10/31/2024 1:00 PM EDT Telemedicine [facility] at [facility] 240 [facility] [address] [place] [address] Ronald Mills MD 240 [facility] A1 [place] [address] documented as of this encounter Procedures Procedure [...] documented as of this encounter Care Teams National Flatbed Truck Driver Relationship Specialty Start Date End Date Caitlyn [place] MD [facility] 1 [place] [address] PCP - General Internal Medicine 05/06/21 Henry Kelly MD Pulmonary Department [address] [place] [address], [address] [place] [address] Physician Pulmonary Disease 09/06/17 06/22/20 documented as of this encounter
--- OUTSIDE RECORDS SUMMARY | 2024-09-04 17:40 | XMS_ITS | Encounter Summary ---
Author Organization [facility] and [facility] Address [address] [place] [address] Care Team Providers Care Growth Media Mixer Mushroom Name Role Phone Caitlyn Bowie MD Primary Care Provider +1- [phone] Encounter Details Date Type Department Care Team ([facility] st Contact Info) Description 08/26/2014 Documentation [facility] [address] [place] [address] Shilpi Ibarra [address] [place] [address] Social History Tobacco Use Types Packs/Day Years [...] from the original note were not included. [facility] Progress Note This is a 69 y.o. female who was provided services by [facility]. Service Provided By:: Shilpi Ibarra Patient Status: return Length of Appointment: 60 minutes documented in this encounter Plan of Treatment Upcoming Encounters Date Type Department Care Team (Late st Contact Info) Description 09/30/2024 8:00 PM EDT Procedure visit [facility] [address] [facility] [address] [place] [address] 10/31/2024 1:00 PM EDT Tele[facility] 240 [facility] Building [address] [place] [address] Ronald Mills MD 240 [facility] Max [address] [place] [address] documented as of this encounter Visit Diagnoses Not on filedocumented in this encounter Additional Health Concerns Infection Onset Date Last Indicated Resolved Time COVID-19 03/05/2022 03/05/2022 03/15/2022 7:18 PM EDT documented as of this encounter Care Teams Growth Media Mixer Mushroom Relationship Specialty Start Date End Date Caitlyn [place] MD 3400 [facility] 1 [place] [address] PCP - General Internal Medicine 05/06/21 Henry Kelly MD Pulmonary Department 175 [facility], [address] [place] [address] Physician Pulmonary Disease 09/06/17 06/22/20 documented as of this encounter
--- OUTSIDE RECORDS SUMMARY | 2024-09-04 17:40 | XMS_ITS | Encounter Summary ---
Author Organization [facility] and [facility] Address [address] [place] [address] Care Team Providers Care Sergeant At Arms Name Role Phone Caitlyn Bowie MD Primary Care Provider +1- [phone] Encounter Details Date Type Department Care Team (Late st Contact Info) Description 01/26/2018 Scanned Document [facility] Health Information Management [address] [place] [address] External, Provider Social History Tobacco Use Types [...] Description 09/30/2024 8:00 PM EDT Procedure visit [facility] [address] [place] [address] [address] [place] [address] 10/31/2024 1:00 PM EDT Tele[facility] at [facility] 240 [facility] Building [address] [place], [place] [address] Ronald Mills MD 240 [facility] A1 [place] [address] documented as of this encounter [...] documented as of this encounter Care Teams Sergeant At Arms Relationship Specialty Start Date End Date Caitlyn [place] MD 3400 [facility] 1 [place] [address] PCP - General Internal Medicine 05/06/21 Henry Kelly MD Pulmonary Department 175 [facility], [address] [place] [address] Physician Pulmonary Disease 09/06/17 06/22/20 documented as of this encounter
--- OUTSIDE RECORDS SUMMARY | 2024-09-04 17:40 | XMS_ITS | Encounter Summary ---
Author Organization [facility] and [facility] Address [address] [place] [address] Care Team Providers Care Service Support Representative Name Role Phone Caitlyn Bowie MD Primary Care Provider +1- [phone] Encounter Details Date Type Department Care Team (Late st Contact Info) Description 02/08/2021 Scanned Document INTERFACE DEFAULT [address] [place] [address] System, Provider Not In Social History Tobacco [...] Description 09/30/2024 8:00 PM EDT Procedure visit [facility] [address] [place] [address] [address] [place] [address] 10/31/2024 1:00 PM EDT Telemedicine Cancer Center at [facility] [address] [facility] [address] [place] [address] Ronald Mills MD 240 [facility] [address] [place] [address] documented as of this encounter Visit Diagnoses Not on filedocumented in this encounter Additional Health Concerns Infection Onset Date Last Indicated Resolved Time COVID-19 03/05/2022 03/05/2022 03/15/2022 7:18 PM EDT Assessment Noted Time PHQ-9 Depression Total Score: 2 11/07/19 19 2:06 PM EDT documented as of this encounter Care Teams Service Support Representative Relationship Specialty Start Date End Date Caitlyn Bowie MD [address] [address] PCP - General Internal Medicine 05/06/21 documented as of this encounter
--- OUTSIDE RECORDS SUMMARY | 2024-09-04 17:40 | XMS_ITS | Encounter Summary ---
Author Organization [facility] Address [address] [place] [address] Care Team Providers Care Corporate Associate Attorney Name Role Phone Caitlyn Bowie MD Primary Care Provider +1- [phone] Reason for Visit * Reason Comments Other Encounter Details Date Type Department Care Team (Late st Contact Info) Description 01/12/2021 Telephone [facility] at [address] - [address] [phone] Ronald Mills MD [address] [place] [address] Other Social History Tobacco Use Types [...] AM EDT Lab orders were faxed to [facility] @ [phone]. Patient notified by phone. * Telephone Encounter - Nasima Wang - 01/12/2021 8:46 AM EDT Pt called looking to speak with Kirstin RE: lab orders sent to lab [facility] lab Looking to have labs sent there A.S.A.P at some point today She is scheduled with Dr. Mills on January 28 documented in this encounter Plan of Treatment Upcoming Encounters Date Type Department Care Team (Late st Contact Info) Description 09/30/2024 8:00 PM EDT Procedure visit [facility] [address] [place] [address] [address] [place] [address] 10/31/2024 1:00 PM EDT Telemedicine Cancer Center at [facility] [address] [facility] [address] [place], [place] [address] Ronald Mills MD 240 [facility] [address] [place] [address] documented as of this encounter Visit Diagnoses Not on filedocumented in this encounter Additional Health Concerns Infection Onset Date Last Indicated Resolved Time COVID-19 03/05/2022 03/05/2022 03/15/2022 7:18 PM EDT Assessment Noted Time PHQ-9 Depression Total Score: 2 11/07/19 19 2:06 PM EDT documented as of this encounter Care Teams Corporate Associate Attorney Relationship Specialty Start Date End Date Caitlyn Bowie MD 3400 [facility] 1 [place] [address] PCP - General Internal Medicine 05/06/21 documented as of this encounter
--- OUTSIDE RECORDS SUMMARY | 2024-09-04 17:40 | XMS_ITS | Encounter Summary ---
Author Organization [facility] and [facility] Address [address] [place] [address] Care Team Providers Care Roll Carrier Name Role Phone Caitlyn Bowie MD Primary Care Provider +1- [phone] Encounter Details Date Type Department Care Team (Late st Contact Info) Description 11/29/2017 Scanned Document [facility] Health Information Management [address] [place] [address] External, Provider Social History Tobacco Use Types [...] Description 09/30/2024 8:00 PM EDT Procedure visit [facility] [address] [place] [address] [address] [place] [address] 10/31/2024 1:00 PM EDT Telemedicine Cancer Center at [facility] 240 [facility] Building [address] [place], [place] [phone] Ronald Mills MD 240 [facility] [address]1 [place] [address] documented as of this [...] documented as of this encounter Care Teams Roll Carrier Relationship Specialty Start Date End Date Caitlyn Bowie MD 3400 [facility] 1 [place] [address] PCP - General Internal Medicine 05/06/21 Henry Kelly MD Pulmonary Department [address] [facility], [address] [place] [address] Physician Pulmonary Disease 09/06/17 06/22/20 documented as of this encounter
--- OUTSIDE RECORDS SUMMARY | 2024-09-04 17:40 | XMS_ITS | Data Portability ---
Author Organization [place] [facility] Address [address] [place] [address] Care Team Providers Care Cardiothoracic Icu Rn Name Role Phone EVELIN RAMSAY Primary Care Provider SHANTI YBARRA OTHER [phone] Assessment Encounter Date Assessment Date Assessment LastModified [...] 911 activated Plan/Discussion: EMS handoff given to [facility] In order to obtain further information and compare any laboratory results/values, I have accessed old patient records. This information was pertinent in my medical decision making today. [email or web address] Not available 03/14/2021 13:20:46 07/18/2021 07/18/2021 Overview/History [...] as of yet. -She is educated to nut picker stool softeners to help promote BM [...] I have accessed patient records on the [employer] and old patient records. This [...] after care of this patient according to [facility]'s infection prevention protocols. Time On [...] noting blood on her pillow approximately 3 chippewa-cree when she woke this morning. She has [...] after care of this patient according to [facility]'s infection prevention protocols. [email or web address] Not available 12/29/2021 14:43:37 Plan of Treatment Reminders Order Date Submit Date Provider Last Modified By Organization Details Last Modified Time Details Appointments None recorded. Lab None recorded. Referral None recorded. Procedures None recorded. Surgeries None recorded. Imaging None recorded. Medication Orders docusate sodium 100 mg capsule 2021 022 lnovia [facility], [address] [facility], [place], [address], 19:28:14 Patient TargetsNo targets recorded. Patient Instructions Encounter Date Encounter Id Patient Instructions Last Modified By Organization Details Last Modified Time 03/14/2021 [id number] Thank you for yo ur visit with [facility] today. You were seen today [...] in your condition between 8am-10pm, please call [facility] at [phone] to help navigate your care. [email or web address] Not available 03/14/2021 12:46:32 10/18/2021 [id number] It was great to see you today! Thank you for letting [facility] assist you in your medical needs [...] follow up with your PCP [facility]. Please present to the [...] INR 1.2 0.9-1. 2 Not Available [facility] [facility] [address] [place] [place], [address], 02/11/2021 16:58:14 02/12/20 21 02/11/2021 , sylvia vance lower extre mity No observ ation record ed. [address] (Imaging) [address] [place], [address], 02/12/2021 08:19:41 Result Notes None recorded. Problems Name Problem SNOMED Code Status Onset Date Resolution Date Notes Provider Name and Address Organization Details Recorded Time Chronic obstructive pulmonary disease 16187210 Active 2018 ARCELIA PATELALON WINSTON [address], [place], [address], [place] [facility] 9 12:59:21 Problem Notes None recorded. Procedures Surgical History Date Name Laterality Status Provider Name and Address Organization Details Recorded Time Total Hysterectomy completed Cristine Sidhu, IRRIGATIONIST DESIGNER [address], [place], [address], [place] [facility] 10/18/2021 19:39:45 lobectomy of lung completed Cristine frazier, IRRIGATIONIST DESIGNER [address], [place], [address], [place] [facility] 10/18/2021 19:40:05 Remove tonsils and adenoids completed Cristine Sidhu, ALON [address], [place], [address], [place] [facility] 10/18/2021 19:40:22 Imaging Results Imaging Date Name Status LastModified by Organiz ation Details LastModified Time 02/11/2021 US, duplex, venous, lower extremity completed [address] (Imaging) [address] [place], [address], 02/12/2021 08:19:41 Procedure Notes None recorded. Medical Equipment None Reported. Allergies Allergen ID Allergen Name Allergen Category Reaction Reaction Severity Criticality Documentation Date Start Date Code Code System Note Provider Name and Address Organization Details Recorded Time 58953 Product containin g penicilli n (product) medicatio n Not available Not available Not available 06/15/2019 99991 8001 SNOMED ARCELIA PATELTISH IRRIGATIONIST DESIGNER [address], [place], [address], [place] [facility] 9 12:56:48 01923 Substance with sulfonami de structure and antibacte rial mechanism of action (substanc e) medicatio n Not available Not available Not available 06/15/2019 86393 8003 SNOMED ARCELIA FAJARDO , IRRIGATIONIST DESIGNER [address], [place], [address], [place] [facility] 9 12:56:54 47861 Voltaren medicatio n Not available Not available Not available 06/15/201906865 6 RxNorm ARCELIA FAJARDO , IRRIGATIONIST DESIGNER [address], [facility] [place], [address], [place] [facility] 9 12:57:01 35948 Iodinated contrast media (substanc e) medicatio n Not available Not available Not available 06/15/2019 48744 2004 SNOMED ARCELIA FAJARDO , IRRIGATIONIST DESIGNER [address], [place], [address], [place] [facility] 9 12:57:07 48066 vancomyci n medicatio n Not available Not available Not available 06/15/2019 51782 RxNorm ARCELIA FAJARDO , IRRIGATIONIST DESIGNER [address], [facility] [place], [address], [place] [facility] 9 12:57:14 50949 gentamici n medicatio n Not available Not available Not available 06/15/2019 09938 50 RxNorm ARCELIA FAJARDO , IRRIGATIONIST DESIGNER [address], [place], [address], [place] [facility] 9 12:57:20 89010 Biaxin medicatio n Not available Not available Not available 06/15/201912686 9 RxNorm ARCELIA FAJARDO , IRRIGATIONIST DESIGNER [address], [place], [address], [place] [facility] 9 12:57:27 36128 Avelox medicatio n Not available Not available Not available 06/15/2019 56609 6 RxNorm ARCELIA FAJARDO , IRRIGATIONIST DESIGNER [address], [place], [address], [place] [facility] 9 12:57:34 79036 erythromy jaylon medicatio n Not available Not available Not available 06/15/2019 4053 RxNorm ARCELIA FAJARDO , IRRIGATIONIST DESIGNER [address], [place], [address], [place] [facility] 9 12:57:41 98030 Zithromax medicatio n Not available Not available Not available 06/15/2019 47368 4 RxNorm ARCELIA FAJARDO , IRRIGATIONIST DESIGNER [address], [facility] [place] [place], [address], [place] [facility] 9 12:57:51 58372 Levaquin medicatio n Not available Not available Not available 06/15/2019 09567 2 RxNorm ARCELIA FAJARDO , IRRIGATIONIST DESIGNER [address], [place], [address], [place] [facility] 9 12:58:02 12621 Cipro medicatio n Not available Not available Not available 06/15/2019 84378 3 RxNorm ARCELIA FAJARDO , IRRIGATIONIST DESIGNER [address], [place], [address], [place] [facility] 9 12:58:08 97312 morphine medicatio n Not available Not available Not available 06/15/2019 7052 RxNorm ARCELIA FAJARDO , IRRIGATIONIST DESIGNER [address], [place], [address], [place] [facility] 9 12:58:20 72338 procaine hydrochlo ride medicatio n Not available Not available Not available 06/15/2019 59631 8 RxNorm ARCELIA FAJARDO , IRRIGATIONIST DESIGNER [address], [place], [address], [place] [facility] 9 12:58:42 06919 barium sulfate medicatio n Not available Not available Not available 06/15/2019 1331 RxNorm ARCELIA FAJARDO , IRRIGATIONIST DESIGNER [address], [place], [address], [place] [facility] 9 12:58:54 64312 Gastrogra fin medicatio n Not available Not available Not available 06/15/2019 08278 5 RxNorm ARCELIA FAJARDO , IRRIGATIONIST DESIGNER [address], [place], [address], [place] [facility] 9 12:59:01 73784 Flagyl medicatio n Not available Not available Not available 06/15/201983995 6 RxNorm ARCELIA FAJARDO , ALON [address], [place], [address], [place] [facility] 9 12:59:06 01457 shrimp allergeni c extract food Not available Not available Not available 06/15/2019 33276 2 RxNorm ARCELIA FAJARDO , IRRIGATIONIST DESIGNER [address], [place], [address], [place] [facility] [...] completed Not Available Not Available Not Available [facility] 100,000 unit/gram topical powder APPLY ONE APPLICAT [...] [degF] 114 mm[Hg] 62 mm[Hg] Not Available [facility] 1 12:53:01 Date Recorded Respiratory rate Oxygen saturation Oxygen saturation in Arterial blood by Pulse oximetry Heart rate Body temperature Systolic blood pressure Diastolic blood pressure Provider Name and Address Organization Details Last Updated DateTime 2 18 /min 98 % 98 % 84 /min 98.9 [degF] 112 mm[Hg] 58 mm[Hg] Not Available [facility] 2 11:16:01 Date Recorded Heart rate Oxygen saturation Oxygen saturation in Arterial blood by Pulse oximetry Respiratory rate Body temperature Systolic blood pressure Diastolic blood pressure Systolic blood pressure Diastolic blood pressure Provider Name and Address Organization Details Last Updated DateTime 2 80 /min 96 % 96 % 18 /min 98.9 [degF] 142 mm[Hg] 66 mm[Hg] 128 mm[Hg] 60 mm[Hg] Not Available [facility] 2 20:16:17 Date Recorded Oxygen saturation Oxygen saturation in Arterial blood by Pulse oximetry Heart rate Respiratory rate Body temperature Systolic blood pressure Diastolic blood pressure Provider Name and Address Organization Details Last Updated DateTime 2 96 % 96 % 77 /min 18 /min 98.6 [degF] 122 mm[Hg] 60 mm[Hg] Not Available [facility] 2 13:41:00 Social History Question Answer Notes LastModified by Organizat ion Details LastModified Time Tobacco Smoking Status Never Smoker ARCELIA FAJARDO NP [address] [facility] [place], [address], [place] [facility] 06/15/2019 13:05:25 Do You Have An [...] 19:35:02 Medical History Condition Response Diabetes N Cancer Y Stroke N COPD Y Hypothyroidism Y High Cholesterol Y Pulmonary Embolism Y Hypertension N Kidney Disease N Gynecological HistoryNo gynecological history recorded. Obstetrics History GPAL:G 0 P 0 0 0 0 Past Encounters Encounter ID Performer Location Encounter Start Date Encounter Closed Date Diagnosis/Indication Diagnosis SNOMED-CT Code Diagnosis ICD10 Code Diagnosis Note [id number] ARCELIA FAJARDO NP [facility] [address] [facility] [place] [address] 06/15/2019 12:54:37 06/17/2019 13:06:33 Excoriation of skin 215762587 T14.8XXA [id number] JANIS GILBERT NP [facility] [address] [facility] [place] [address] 11/13/2019 16:03:00 11/18/2019 14:53:37 Pain in lower limb 80031893 M79.661 [id number] ARCELIA FAJARDO NP [facility] [address] [facility] [place] [address] 03/14/2020 20:02:43 03/18/2020 21:30:46 Traumatic hematoma 905027633 T14.8XXA Long-term current use of anticoagulant 119977763 Z79.01 Pain in left foot 012875 0298 02320 M79.672 [id number] EMELIA TOMPKINS [facility] [address] [facility] [place] [address] 03/20/2020 12:50:59 03/23/2020 17:54:28 Contusion of lower leg 64099652 S80.10XA Swelling of lower leg 44 9034802 R22.42 [id number] [facility] [address] [facility] [place] [address] 09/29/2020 11:41:21 09/29/2020 12:38:57 Pain of intercostal space 852187039 R07.82 Exposure t o communicable disease 960599382 Z20.822 [id number] Waleska Matos, IRRIGATIONIST DESIGNER [facility] - [facility] [address] [facility] [place] [address] 02/11/2021 16:34:32 02/12/2021 11:08:44 Hematoma of lower leg 155511178 S80.11XA [id number] JAMES RADHA IRRIGATIONIST DESIGNER [facility] - [facility] [address] [facility] [place] [address] 03/14/2021 12:45:30 03/19/2021 14:09:43 Abdominal pain 55502921 R10.9 [id number] EMELIA Alfonso [facility] - [facility] [address] [facility] [place] [address] 07/18/2021 10:56:56 07/22/2021 23:43:22 Constipation 04989886 K59.00 Left lower quadrant pain 176788552 R10.32 [id number] Cristine Sidhu NP SPR - HOME [address] [facility] [place] [address] 10/18/2021 19:17:00 11/10/2021 16:33:03 Left sided abdominal pain 993188386 R10.9 Hematoma of lower leg 44 7280649 S80.10XA Long-term current use of anticoagulant 323225370 Z79.01 [id number] Cristine Sidhu NP SPR - HOME [address] [facility] [place] [address] 12/29/2021 13:36:24 12/30/2021 10:20:27 Blood coagulation disorder 08291649 D68.61 D68.2 [id number] Olivia Goldberg IRRIGATIONIST DESIGNER SPR - HOME [address] [facility] [place] [address] 01/18/2023 14:00:39 01/18/2023 15:01:49 Health Concerns Section Related Observation LastModified by Organization Detai ls LastModified Time None Recorded Concern Status LastModified by Organization Details LastModified Time None Recorded Advance Directives Directive Y: Payers Encounter Date Sequence Insurance Name Policy Number Policy Pettit Covered Member ID Pettit Member ID Guarantor Name 03/14/2021 1 [place] [employer] Jovana Malik [id number] Jovana Malik 03/14/2021 2 [place] [id number] Jovana Steinino [id number] Jovana Steinino 07/18/2021 1 [place] [facility] Jovana Malik [id number] Jovana Steinino 07/18/2021 2 [place] [id number] Jovana Steinino [id number] Jovana Steinino 10/18/2021 1 [place] [facility] Jovana Steinino [id number] Jovana Helena 10/18/2021 2 [place] [id number] Jovana Steinino [id number] Jovana Steinino 12/29/2021 1 [place] [facility] Jovana Malik [id number] Jovana Helena 12/29/2021 2 [facility] ([place] [id number] Jovana Steinino [id number] Jovana Steinino 01/18/2023 1 [place] [facility] Jovana Malik [id number] Jovana [place] 01/18/2023 2 [place] [employer] [place] [id number] Jovana Steinino [id number] Jovana Malik Notes Date Note Type Note Provider Name and Address Organization Details Recorded Time 1 text/html This is a 75-year-old female, [facility], who calls with concerns for severe [...] intake. JAMES GARCIA NP [address], [place], [address], [place] [facility] 03/14/2021 13:21:32 2 text/html [...] asscociated sx's. EMELIA Ni [address], [place], [address], [place] [facility] 07/18/2021 12:04:00 2 text/html [...] evaluated. Cristine Sidhu NP [address], [place], [address], [place] [facility] 11/09/2021 02:11:05 2 text/html [...] supernatural. Cristine Sidhu NP [address], [place], [address], [place] [facility] 12/29/2021 14:43:53 3 text/html pt did not answer, visit canceled Olivia Goldberg NP [address], [place], [address], [place] [facility] 01/18/2023 19:34:36 OBGyn Episode No OBEpisode recorded.
--- OUTSIDE RECORDS SUMMARY | 2024-09-04 17:40 | XMS_ITS | Encounter Summary ---
Author Organization [facility] and [facility] Address [address] [place] [address] Care Team Providers Care Social Media Job Titles Name Role Phone Caitlyn Bowie MD Primary Care Provider +1- [phone] Encounter Details Date Type Department Care Team (Late st Contact Info) Description 01/26/2018 Scanned Document [facility] Health Information Management [address] [place] [address] External, Provider Social History Tobacco Use Types [...] Description 09/30/2024 8:00 PM EDT Procedure visit [facility] [address] [place] [address] [address] [place] [address] 10/31/2024 1:00 PM EDT Telemedicine Cancer Center at [facility] [address] [facility] [address] [place], [place] [phone] Ronald Mills MD 240 [facility] A1 [place] [address] documented as of this encounter Visit Diagnoses Not on filedocumented in this encounter Additional Health Concerns Infection Onset Date Last Indicated Resolved Time COVID-19 03/05/2022 03/05/2022 03/15/2022 7:18 PM EDT documented as of this encounter Care Teams Social Media Job Titles Relationship Specialty Start Date End Date Caitlyn Bowie MD 3400 [facility] 1 [place] [address] PCP - General Internal Medicine 05/06/21 Henry Kelly MD Pulmonary Department [address] [facility], [address] [place] [address] Physician Pulmonary Disease 09/06/17 06/22/20 documented as of this encounter
--- OUTSIDE RECORDS SUMMARY | 2024-09-04 17:40 | XMS_ITS | Encounter Summary ---
Author Organization [facility] Address [address] [place] [address] Care Team Providers Care Information Assoc Name Role Phone Caitlyn Bowie MD Primary Care Provider +1- [phone] Encounter Details Date Type Department Care Team (Late st Contact Info) Description 06/25/2015 Scanned Document [facility] Health Information Management [address] [place] [address] External, Provider Social History Tobacco Use Types [...] Description 09/30/2024 8:00 PM EDT Procedure visit [facility] [address] [place] [address] [address] [place] [address] 10/31/2024 1:00 PM EDT Telemedicine [facility] at [facility] [address] [facility] [address] [place], [place] [address] Ronald Mills MD 240 [facility] A1 [place] [address] documented as of this encounter Visit Diagnoses Not on filedocumented in this encounter Additional Health Concerns Infection Onset Date Last Indicated Resolved Time COVID-19 03/05/2022 03/05/2022 03/15/2022 7:18 PM EDT documented as of this encounter Care Teams Information Assoc Relationship Specialty Start Date End Date Caitlyn Bowie MD 34[address] [facility] [address] 1 [place] [address] PCP - General Internal Medicine 05/06/21 Henry Kelly MD Pulmonary Department 175 [facility], [address] [place] [address] Physician Pulmonary Disease 09/06/17 06/22/20 documented as of this encounter
--- OUTSIDE RECORDS SUMMARY | 2024-09-04 17:40 | XMS_ITS | Encounter Summary ---
Author Organization [facility] and [facility] Address [address] [place] [address] Care Team Providers Care Contact Lens Flashing Puncher Name Role Phone Caitlyn Bowie MD Primary Care Provider +1- [phone] Encounter Details Date Type Department Care Team (Late Contact Info) Description 02/02/2021 Scanned Document [facility] Health Information Management [address] [place] [address] External, Provider Social History Tobacco Use Types [...] Description 09/30/2024 8:00 PM EDT Procedure visit [facility] [address] [place] [address] [address] [place] [address] 10/31/2024 1:00 PM EDT Tele[facility]icine [facility] at [address] [place] [address] Ronald Mills MD 240 [facility] A1 [place] [address] documented as of this encounter Visit Diagnoses Not on filedocumented in this encounter Additional Health Concerns Infection Onset Date Last Indicated Resolved Time COVID-19 03/05/2022 03/05/2022 03/15/2022 7:18 PM EDT Assessment Noted Time PHQ-9 Depression Total Score: 2 11/07/19 19 2:06 PM EDT documented as of this encounter Care Teams Contact Lens Flashing Puncher Relationship Specialty Start Date End Date Caitlyn Bowie MD [address] [address] PCP - General Internal Medicine 05/06/21 documented as of this encounter
--- OUTSIDE RECORDS SUMMARY | 2024-09-04 17:40 | XMS_ITS | Encounter Summary ---
Author Organization [facility] Address [address] [place] [address] Care Team Providers Care Mission Systems Engineer Name Role Phone Caitlyn Bowie MD Primary Care Provider +1- [phone] Encounter Details Date Type Department Care Team (Late st Contact Info) Description 12/27/[address] [facility] Health Information Management [address] [place] [address] External, Provider Social History Tobacco Use Types [...] Description 09/30/2024 8:00 PM EDT Procedure visit [facility] [address] [place] [address] [address] [place] [address] 10/31/2024 1:00 PM EDT Telemedicine Cancer Center at [facility] 240 [facility] [address] [place] [address] Ronald Mills MD 240 [facility] A1 [place] [address] documented as of this encounter Procedures Procedure [...] documented as of this encounter Care Teams Mission Systems Engineer Relationship Specialty Start Date End Date Caitlyn Bowie MD 3400 [facility] [address] 1 [place] [address] PCP - General Internal Medicine 05/06/21 Henry Kelly MD Pulmonary Department [address] [place] [address], [address] [place] [address] Physician Pulmonary Disease 09/06/17 06/22/20 documented as of this encounter
--- OUTSIDE RECORDS SUMMARY | 2024-09-04 17:40 | XMS_ITS | Encounter Summary ---
Author Organization [facility] Address [address] [place] [address] Care Team Providers Care Ammunition Officer Name Role Phone Caitlyn Bowie MD Primary Care Provider +1- [phone] Encounter Details Date Type Department Care Team (Late st Contact Info) Description 01/13/2021 Scanned Document Cancer Center at [address] [address] Ronald Mills MD [address] [place] [address] Social History Tobacco Use Types Packs/Day [...] Description 09/30/2024 8:00 PM EDT Procedure visit [facility] [address] [place] [address] [place] [address] 10/31/2024 1:00 PM EDT Telemedicine Cancer [facility] at [address] [place], [place] [address] Ronald Mills MD 240 [facility] A1 [place] [address] documented as of this encounter [...] documented as of this encounter Care Teams Ammunition Officer Relationship Specialty Start Date End Date Caitlyn Bowie MD [address] [address] PCP - General Internal Medicine 05/06/21 documented as of this encounter
--- OUTSIDE RECORDS SUMMARY | 2024-09-04 17:40 | XMS_ITS | Encounter Summary ---
Author Organization [facility] and [facility] Address [address] [place] [address] Care Team Providers Care International Marketing Executive Name Role Phone Caitlyn Bowie MD Primary Care Provider +1- [phone] Encounter Details Date Type Department Care Team (Late st Contact Info) Description 02/03/2021 Scanned Document INTERFACE DEFAULT [address] [place] [address] System, Provider Not In Social History Tobacco [...] Description 09/30/2024 8:00 PM EDT Procedure visit [facility] [address] [place] [address] [address] [place] [address] 10/31/2024 1:00 PM EDT Telemedicine Cancer Center at [facility] 240 [facility] [address] [place] [address] Ronald Mills MD 240 [facility] A1 [place] [address] documented as of this encounter Procedures Procedure [...] documented as of this encounter Care Teams International Marketing Executive Relationship Specialty Start Date End Date Caitlyn Bowie MD [address] [address] PCP - General Internal Medicine 05/06/21 documented as of this encounter
--- OUTSIDE RECORDS SUMMARY | 2024-09-04 17:40 | XMS_ITS | Encounter Summary ---
Author Organization [facility] and [facility] Address [address] [place] [address] Care Team Providers Care Nurses Educator Name Role Phone Caitlyn Bowie MD Primary Care Provider +1- [phone] Encounter Details Date Type Department Care Team (Late st Contact Info) Description 04/28/2015 Scanned Document [facility] Health Information Management [address] [place] [address] External, Provider Social History Tobacco Use Types [...] Description 09/30/2024 8:00 PM EDT Procedure visit [facility] [address] [place] [address] [address] [place] [address] 10/31/2024 1:00 PM EDT Telemedicine Cancer Center at [facility] [address] [facility] Building [address] [place], [place] [address] Ronald Mills MD 240 [facility] A1 [place] [address] documented as of this encounter Visit Diagnoses Not on filedocumented in this encounter Additional Health Concerns Infection Onset Date Last Indicated Resolved Time COVID-19 03/05/2022 03/05/2022 03/15/2022 7:18 PM EDT documented as of this encounter Care Teams Nurses Educator Relationship Specialty Start Date End Date Caitlyn Bowie MD 3400 [facility] [address] 1 [place] [address] PCP - General Internal Medicine 05/06/21 Henry Kelly MD Pulmonary Department 175 [facility], [address] [place] [address] Physician Pulmonary Disease 09/06/17 06/22/20 documented as of this encounter
--- OUTSIDE RECORDS SUMMARY | 2024-09-04 17:40 | XMS_ITS | Encounter Summary ---
Author Organization [facility] Address [address] [place] [address] Care Team Providers Care Ground Crew Lines Person Name Role Phone Caitlyn Bowie MD Primary Care Provider +1- [phone] Encounter Details Date Type Department Care Team (Late st Contact Info) Description 08/23/2017 Scanned Document [facility] Health Information Management [address] [place] [address] External, Provider Social History Tobacco Use Types [...] Description 09/30/2024 8:00 PM EDT Procedure visit [facility] [address] [place] [address] [address] [place] [address] 10/31/2024 1:00 PM EDT Telemedicine Cancer Center at [facility] 240 [facility] Building [address] [place], [place] [phone] Ronald Mills MD 240 [facility] A1 [place] [address] documented as of this encounter [...] as of this encounter Care Teams Ground Crew Lines Person Relationship Specialty Start Date End Date Caitlyn Bowie MD 3400 [facility] 1 [place] [address] PCP - General Internal Medicine 05/06/21 Henry Kelly MD Pulmonary Department 175 [facility], [address] [place] [address] Physician Pulmonary Disease 09/06/17 06/22/20 documented as of this encounter
--- OUTSIDE RECORDS SUMMARY | 2024-09-04 17:40 | XMS_ITS | Encounter Summary ---
Author Organization [facility] and [facility] Address [address] [place] [address] Care Team Providers Care Linux Unix System Administrator Name Role Phone Caitlyn Bowie MD Primary Care Provider +1- [phone] Encounter Details Date Type Department Care Team (Late st Contact Info) Description 09/01/2017 Scanned Document [facility] Health Information Management [address] [place] [address] External, Provider Social History Tobacco Use Types [...] Description 09/30/2024 8:00 PM EDT Procedure visit [facility] [address] [place] [address] [address] [place] [address] 10/31/2024 1:00 PM EDT Telemedicine Cancer Center at [facility] 240 [facility] Building [address] [place], [place] [phone] Ronald Mills MD 240 [facility] A1 [place] [address] documented as of [...] documented as of this encounter Care Teams Linux Unix System Administrator Relationship Specialty Start Date End Date Caitlyn Bowie MD 3400 [facility] 1 [place] [address] PCP - General Internal Medicine 05/06/21 Henry Kelly MD Pulmonary Department 175 [facility], [address] [place] [address] Physician Pulmonary Disease 09/06/17 06/22/20 documented as of this encounter
--- OUTSIDE RECORDS SUMMARY | 2024-09-04 17:40 | XMS_ITS | Encounter Summary ---
Author Organization [facility] Address [address] [place] [address] Care Team Providers Care Locket Maker Name Role Phone Caitlyn Bowie MD Primary Care Provider +1- [phone] Encounter Details Date Type Department Care Team (Late st Contact Info) Description 03/01/2021 Scanned Document INTERFACE DEFAULT [address] [place] [address] System, Provider Not In Social History Tobacco [...] Description 09/30/2024 8:00 PM EDT Procedure visit [facility] [address] [place] [address] [address] [place] [address] 10/31/2024 1:00 PM EDT Telemedicine Cancer Center at [facility] [address] [facility] [address] [place] [address] Ronald Mills MD 240 [facility] A1 [place] [address] documented as of this encounter Visit Diagnoses Not on filedocumented in this encounter Additional Health Concerns Infection Onset Date Last Indicated Resolved Time COVID-19 03/05/2022 03/05/2022 03/15/2022 7:18 PM EDT Assessment Noted Time PHQ-9 Depression Total Score: 2 11/07/19 19 2:06 PM EDT documented as of this encounter Care Teams Locket Maker Relationship Specialty Start Date End Date Caitlyn Bowie MD [address] [address] PCP - General Internal Medicine 05/06/21 documented as of this encounter
--- OUTSIDE RECORDS SUMMARY | 2024-09-04 17:40 | XMS_ITS | Encounter Summary ---
Author Organization [facility] Address [address] [place] [address] Care Team Providers Care Beauty Therapist Name Role Phone Caitlyn Bowie MD Primary Care Provider +1- [phone] Encounter Details Date Type Department Care Team (Late st Contact Info) Description 02/15/2021 Scanned Document INTERFACE DEFAULT [address] [place] [address] System, Provider Not In Social History Tobacco [...] EDT Procedure visit [facility] [address] [place] [address] [address] [place] [address] 10/31/2024 1:00 PM EDT Telemedicine Cancer Center at [facility] 240 [facility] [address] [place] [address] Ronald Mills MD 240 [facility] A1 [place] [address] documented as of this encounter Visit Diagnoses Not on filedocumented in this encounter Additional Health Concerns Infection Onset Date Last Indicated Resolved Time COVID-19 03/05/2022 03/05/2022 03/15/2022 7:18 PM EDT Assessment Noted Time PHQ-9 Depression Total Score: 2 11/07/19 19 2:06 PM EDT documented as of this encounter Care Teams Beauty Therapist Relationship Specialty Start Date End Date Caitlyn Bowie MD [address] [address] PCP - General Internal Medicine 05/06/21 documented as of this encounter
--- OUTSIDE RECORDS SUMMARY | 2024-09-04 17:40 | XMS_ITS | Encounter Summary ---
Author Organization [facility] Address [address] [place] [address] Care Team Providers Care Glove Printer Name Role Phone Caitlyn Bowie MD Primary Care Provider +1- [phone] Encounter Details Date Type Department Care Team (Late st Contact Info) Description 02/24/2021 Scanned Document INTERFACE DEFAULT [address] [place] [address] System, Provider Not In Social History Tobacco [...] Description 09/30/2024 8:00 PM EDT Procedure visit [facility] [address] [place] [address] [address] [place] [address] 10/31/2024 1:00 PM EDT Telemedicine Cancer Center at [facility] 240 [facility] [address] [place] [address] Ronald Mills MD 240 [facility] A1 [place] [address] documented as of this encounter Procedures Procedure [...] documented as of this encounter Care Teams Glove Printer Relationship Specialty Start Date End Date Caitlyn Bowie MD [address] [address] PCP - General Internal Medicine 05/06/21 documented as of this encounter
--- OUTSIDE RECORDS SUMMARY | 2024-09-04 17:40 | XMS_ITS | Encounter Summary ---
Author Organization [facility] and [facility] Address [address] [place] [address] Care Team Providers Care Health Support Specialist Name Role Phone Caitlyn Bowie MD Primary Care Provider +1- [phone] Encounter Details Date Type Department Care Team (Late st Contact Info) Description 02/28/2021 Scanned Document INTERFACE DEFAULT [address] [place] [address] System, Provider Not In Social History Tobacco [...] Description 09/30/2024 8:00 PM EDT Procedure visit [facility] [address] [place] [address] [address] [place] [address] 10/31/2024 1:00 PM EDT Telemedicine Cancer Center at [facility] 240 [facility] [address] [place] [address] Ronald Mills MD 240 [facility] A1 [place] [address] documented as of this encounter Procedures Procedure [...] as of this encounter Care Teams Health Support Specialist Relationship Specialty Start Date End Date Caitlyn Bowie MD [facility] [address] [address] PCP - General Internal Medicine 05/06/21 documented as of this encounter
--- OUTSIDE RECORDS SUMMARY | 2024-09-04 17:40 | XMS_ITS | Encounter Summary ---
Author Organization [facility] Address [address] [place] [address] Care Team Providers Care Wireworker Supervisor Name Role Phone Caitlyn Bowie MD Primary Care Provider +1- [phone] Encounter Details Date Type Department Care Team (Late st Contact Info) Description 12/21/2020 Scanned Document INTERFACE DEFAULT [address] [place] [address] System, Provider Not In Social History Tobacco [...] Description 09/30/2024 8:00 PM EDT Procedure visit [facility] [address] [place] [address] [address] [place] [address] 10/31/2024 1:00 PM EDT Telemedicine Cancer Center at [facility] 240 [facility] [address] [place] [address] Ronald Mills MD 240 [facility] A1 [place] [address] documented as of this encounter Visit Diagnoses Not on filedocumented in this encounter Additional Health Concerns Infection Onset Date Last Indicated Resolved Time COVID-19 03/05/2022 03/05/2022 03/15/2022 7:18 PM EDT Assessment Noted Time PHQ-9 Depression Total Score: 2 11/07/19 19 2:06 PM EDT documented as of this encounter Care Teams Wireworker Supervisor Relationship Specialty Start Date End Date Caitlyn Bowie MD [address] [address] PCP - General Internal Medicine 05/06/21 documented as of this encounter
--- OUTSIDE RECORDS SUMMARY | 2024-09-04 17:40 | XMS_ITS | Encounter Summary ---
Author Organization [facility] Address [address] [place] [address] Care Team Providers Care Branch Logistics Supervisor Name Role Phone Caitlyn Bowie MD Primary Care Provider +1- [phone] Encounter Details Date Type Department Care Team (Late st Contact Info) Description 01/02/2019 Scanned Document [facility] Health Information Management [address] [place] [address] External, Provider Social History Tobacco Use Types [...] Description 09/30/2024 8:00 PM EDT Procedure visit [facility] [address] [place] [address] [address] [place] [address] 10/31/2024 1:00 PM EDT Telemedicine Cancer Center at [facility] 240 [facility] [address] [place] [address] Ronald Mills MD 240 [facility] A1 [place] [address] documented as of this encounter Procedures Procedure [...] as of this encounter Care Teams Branch Logistics Supervisor Relationship Specialty Start Date End Date Caitlyn Bowie MD 3400 [facility] 1 [place] [address] PCP - General Internal Medicine 05/06/21 Henry Kelly MD Pulmonary Department 175 [facility], [address] [place] [address] Physician Pulmonary Disease 09/06/17 06/22/20 documented as of this encounter
--- OUTSIDE RECORDS SUMMARY | 2024-09-04 17:40 | XMS_ITS | Encounter Summary ---
Author Organization [facility] Address [address] [place] [address] Care Team Providers Care Psychiatric Specialist Name Role Phone Caitlyn Bowie MD Primary Care Provider +1- [phone] Encounter Details Date Type Department Care Team (Late st Contact Info) Description 10/16/2013 Scanned Document [facility] [address] [facility], 2nd floor [facility], [address] [place], [place] [address] Suzy Kong MD [address] [place] [address] Social History Tobacco Use Types Packs/Day [...] Description 09/30/2024 8:00 PM EDT Procedure visit [facility] [address] [place] [address] [address] [place] [address] 10/31/2024 1:00 PM EDT Telemedicine Cancer Center at [address] [place], [place] [address] Ronald Mills MD 240 [facility] Max [address]1 [place] [address] documented as of this encounter Visit Diagnoses Not on filedocumented in this encounter Additional Health Concerns Infection Onset Date Last Indicated Resolved Time COVID-19 03/05/2022 03/05/2022 03/15/2022 7:18 PM EDT documented as of this encounter Care Teams Psychiatric Specialist Relationship Specialty Start Date End Date Caitlyn Bowie MD 3400 [facility] 1 [place] [address] PCP - General Internal Medicine 05/06/21 Henry Kelly MD Pulmonary Department [address] [place] [address], [address] [place] [address] Physician Pulmonary Disease 09/06/17 06/22/20 documented as of this encounter
--- OUTSIDE RECORDS SUMMARY | 2024-09-04 17:40 | XMS_ITS | Encounter Summary ---
Author Organization [facility] Address [address] [place] [address] Care Team Providers Care Reed Maker Name Role Phone Caitlyn Bowie MD Primary Care Provider +1- [phone] Encounter Details Date Type Department Care Team (Late st Contact Info) Description 05/01/2015 Scanned Document [facility] Health Information Management [address] [place] [address] External, Provider Social History Tobacco Use Types [...] Description 09/30/2024 8:00 PM EDT Procedure visit [facility] [address] [place] [address] [address] [place] [address] 10/31/2024 1:00 PM EDT Telemedicine [facility] at [facility] 240 [facility] Building [address] [place], [place] [address] Ronald Mills MD 240 [facility] A1 [place] [address] documented as of this encounter Procedures Procedure [...] documented as of this encounter Care Teams Reed Maker Relationship Specialty Start Date End Date Caitlyn Bowie MD 3400 [facility] 1 [place] [address] PCP - General Internal Medicine 05/06/21 Henry Kelly MD Pulmonary Department 175 [facility], [address] [place] [address] Physician Pulmonary Disease 09/06/17 06/22/20 documented as of this encounter
--- OUTSIDE RECORDS SUMMARY | 2024-09-04 17:40 | XMS_ITS | Encounter Summary ---
Author Organization [facility] and [facility] Address [address] [place] [address] Care Team Providers Care Health And Physical Education Professor Name Role Phone Caitlyn Bowie MD Primary Care Provider +1- [phone] Encounter Details Date Type Department Care Team (Late st Contact Info) Description 01/13/2021 Scanned Document Cancer Center at [address] [address] External, Provider Social History Tobacco Use Types [...] Description 09/30/2024 8:00 PM EDT Procedure visit [facility] [address] [place] [address] [place] [address] 10/31/2024 1:00 PM EDT Telemedicine Cancer Center at [address] [place], [place] [address] Ronald Mills MD [address] [address] documented as of this encounter [...] as of this encounter Care Teams Health And Physical Education Professor Relationship Specialty Start Date End Date Caitlyn Bowie MD [address] [address] PCP - General Internal Medicine 05/06/21 documented as of this encounter
--- OUTSIDE RECORDS SUMMARY | 2024-09-04 17:40 | XMS_ITS | Encounter Summary ---
Author Organization [facility] and [facility] Address [address] [place] [address] Care Team Providers Care Basket Turner Name Role Phone Caitlyn Bowie MD Primary Care Provider +1- [phone] Encounter Details Date Type Department Care Team (Late st Contact Info) Description 04/28/2015 Scanned Document [facility] Health Information Management [address] [place] [address] External, Provider Social History Tobacco Use Types [...] Description 09/30/2024 8:00 PM EDT Procedure visit [facility] [address] [place] [address] [address] [place] [address] 10/31/2024 1:00 PM EDT Telemedicine [facility] at [facility] [address] [facility] [address] [place], [place] [address] Ronald Mills MD 240 [facility] A1 [place] [address] documented as of this encounter Procedures Procedure Name Priority Date/Time Associated Diagnosis Comments LAB SCAN Routine 04/28/2015 documented in this encounter Results * Lab Scan (04/28/2015) Blood specimen (specimen) us Provider External LAB BLOOD ORDERABLES Edited Re sult - Final [facility] [place], [facility] documented in this encounter Visit Diagnoses Not on filedocumented in this encounter Additional Health Concerns Infection Onset Date Last Indicated Resolved Time COVID-19 03/05/2022 03/05/2022 03/15/2022 7:18 PM EDT documented as of this encounter Care Teams Basket Turner Relationship Specialty Start Date End Date Caitlyn Bowie MD 3400 [facility] 1 [place] [address] PCP - General Internal Medicine 05/06/21 Henry Kelly MD Pulmonary Department 175 [facility], [address] [place] [address] Physician Pulmonary Disease 09/06/17 06/22/20 documented as of this encounter
--- OUTSIDE RECORDS SUMMARY | 2024-09-04 17:40 | XMS_ITS | Encounter Summary ---
Author Organization [facility] and [facility] Address [address] [place] [address] Care Team Providers Care Medical Research Assistant Name Role Phone Caitlyn Bowie MD Primary Care Provider +1- [phone] Encounter Details Date Type Department Care Team (Late st Contact Info) Description 11/09/2020 Scanned Document INTERFACE DEFAULT [address] [place] [address] System, Provider Not In Social History Tobacco [...] Description 09/30/2024 8:00 PM EDT Procedure visit [facility] [address] [place] [address] [address] [place] [address] 10/31/2024 1:00 PM EDT Telemedicine [facility] at [facility] 240 [facility] [address] [place] [address] Ronald Mills MD 240 [facility] A1 [place] [address] documented as of this encounter Visit Diagnoses Not on filedocumented in this encounter Additional Health Concerns Infection Onset Date Last Indicated Resolved Time COVID-19 03/05/2022 03/05/2022 03/15/2022 7:18 PM EDT Assessment Noted Time PHQ-9 Depression Total Score: 2 11/07/19 19 2:06 PM EDT documented as of this encounter Care Teams Medical Research Assistant Relationship Specialty Start Date End Date Caitlyn Bowie MD [address] [address] PCP - General Internal Medicine 05/06/21 documented as of this encounter
--- OUTSIDE RECORDS SUMMARY | 2024-09-04 17:40 | XMS_ITS | Encounter Summary ---
Author Organization [facility] and [facility] Address [address] [place] [address] Care Team Providers Care Research Laboratory Manager Name Role Phone Caitlyn Bowie MD Primary Care Provider +1- [phone] Encounter Details Date Type Department Care Team (Late st Contact Info) Description 02/02/2021 Scanned Document INTERFACE DEFAULT [address] [place] [address] System, Provider Not In Social History Tobacco [...] EDT Procedure visit [facility] [address] [place] [address] [address] [place] [address] 10/31/2024 1:00 PM EDT Telemedicine [facility] at [facility] [address] [facility] [address] [place] [address] Ronald Mills MD 240 [facility] A1 [place] [address] documented as of this encounter Procedures Procedure [...] as of this encounter Care Teams Research Laboratory Manager Relationship Specialty Start Date End Date Caitlyn Bowie MD [address] [address] PCP - General Internal Medicine 05/06/21 documented as of this encounter
--- OUTSIDE RECORDS SUMMARY | 2024-09-04 17:40 | XMS_ITS | Encounter Summary ---
Author Organization [facility] and [facility] Address [address] [place] [address] Care Team Providers Care Canine Service Teacher Name Role Phone Caitlyn Bowie MD Primary Care Provider +1- [phone] Encounter Details Date Type Department Care Team (Late st Contact Info) Description 02/25/2021 Scanned Document INTERFACE DEFAULT [address] [place] [address] System, Provider Not In Social History Tobacco [...] Description 09/30/2024 8:00 PM EDT Procedure visit [facility] [address] [place] [address] [address] [place] [address] 10/31/2024 1:00 PM EDT Telemedicine [facility] at [facility] 240 [facility] [address] [place] [address] Ronald Mills MD 240 [facility] A1 [place] [address] documented as of this encounter Procedures Procedure [...] Start Date End Date Caitlyn Bowie MD [address] [place] [address] PCP - General Internal Medicine 05/06/21 documented as of this encounter
--- OUTSIDE RECORDS SUMMARY | 2024-09-04 17:40 | XMS_ITS | Encounter Summary ---
Author Organization [facility] and [facility] Address [address] [place] [address] Care Team Providers Care Beater Out Name Role Phone Caitlyn Bowie MD Primary Care Provider +1- [phone] Encounter Details Date Type Department Care Team (Late st Contact Info) Description 02/07/2021 Scanned Document INTERFACE DEFAULT [address] [place] [address] System, Provider Not In Social History Tobacco [...] Description 09/30/2024 8:00 PM EDT Procedure visit [facility] [address] [place] [address] [address] [place] [address] 10/31/2024 1:00 PM EDT Telemedicine [facility] at [facility] 240 [facility] [address] [place] [address] Ronald Mills MD 240 [facility] A1 [place] [address] documented as of this encounter Procedures Procedure [...] documented as of this encounter Care Teams Beater Out Relationship Specialty Start Date End Date Caitlyn Bowie MD [facility] [address] [address] PCP - General Internal Medicine 05/06/21 documented as of this encounter
--- OUTSIDE RECORDS SUMMARY | 2024-09-04 17:40 | XMS_ITS | Encounter Summary ---
Author Organization [facility] and [facility] Address [address] [place] [address] Care Team Providers Care Permit Review Assistant Name Role Phone Caitlyn Bowie MD Primary Care Provider +1- [phone] Encounter Details Date Type Department Care Team (Late st Contact Info) Description 01/27/2021 Scanned Document Cancer Center at [address] [address] External, Provider Social History Tobacco Use Types [...] Description 09/30/2024 8:00 PM EDT Procedure visit [facility] [address] [place] [address] [place] [address] 10/31/2024 1:00 PM EDT Telemedicine Cancer Center at [address] [place], [place] [address] Ronald Mills MD [address] [address] documented as of this encounter [...] End Date Caitlyn Bowie MD [address] [address] PCP - General Internal Medicine 05/06/21 documented as of this encounter
--- OUTSIDE RECORDS SUMMARY | 2024-09-04 17:40 | XMS_ITS | Encounter Summary ---
Author Organization [facility] and [facility] Address [address] [place] [address] Care Team Providers Care Interior Assemblies Installer Name Role Phone Caitlyn Bowie MD Primary Care Provider +1- [phone] Encounter Details Date Type Department Care Team (Late st Contact Info) Description 01/09/2019 Scanned Document [facility] Health Information Management [address] [place] [address] External, Provider Social History Tobacco Use Types [...] Description 09/30/2024 8:00 PM EDT Procedure visit [facility] [address] [place] [address] [address] [place] [address] 10/31/2024 1:00 PM EDT Tele[facility] 240 [facility] [address] [place] [address] Ronald Mills MD 240 [facility] A1 [place] [address] documented as of this encounter Procedures Procedure [...] documented as of this encounter Care Teams Interior Assemblies Installer Relationship Specialty Start Date End Date Caitlyn Bowie MD 3400 [facility] Max 1 [place] [address] PCP - General Internal Medicine 05/06/21 Henry Kelly MD Pulmonary Department [address] [place] [address], [address] [place] [address] Physician Pulmonary Disease 09/06/17 06/22/20 documented as of this encounter
--- OUTSIDE RECORDS SUMMARY | 2024-09-04 17:40 | XMS_ITS | Encounter Summary ---
Author Organization [facility] Address [address] [place] [address] Care Team Providers Care Avionics Manager Name Role Phone Caitlyn Bowie MD Primary Care Provider +1- [phone] Encounter Details Date Type Department Care Team (Late st Contact Info) Description 07/31/2015 Scanned Document [facility] Health Information Management [address] [place] [address] External, Provider Social History Tobacco Use Types [...] Description 09/30/2024 8:00 PM EDT Procedure visit [facility] [address] [place] [address] [address] [place] [address] 10/31/2024 1:00 PM EDT Telemedicine Cancer Center at [facility] 240 [facility] Building [address] [place], [place] [address] Ronald Mills MD 240 [facility] A1 [place] [address] documented as of this encounter Procedures Procedure Name Priority Date/Time Associated Diagnosis Comments NUC MED/PET RESULT SCAN Routine 07/31/2015 documented in this encounter Results * Nuc Med/PET Result Scan (07/31/2015) us Provider External IMG SCAN REPORTS Edited Result - Final [facility] documented in this encounter Visit Diagnoses Not on filedocumented in this encounter Additional Health Concerns Infection Onset Date Last Indicated Resolved Time COVID-19 03/05/2022 03/05/2022 03/15/2022 7:18 PM EDT documented as of this encounter Care Teams Avionics Manager Relationship Specialty Start Date End Date Caitlyn Bowie MD 3400 [facility] 1 [place] [address] PCP - General Internal Medicine 05/06/21 Henry Kelly MD Pulmonary Department 175 [facility], [address] [place] [address] Physician Pulmonary Disease 09/06/17 06/22/20 documented as of this encounter
--- OUTSIDE RECORDS SUMMARY | 2024-09-04 17:40 | XMS_ITS | Encounter Summary ---
Author Organization [facility] and [facility] Address [address] [place] [address] Care Team Providers Care Refractory Furnace Designer Name Role Phone Caitlyn Bowie MD Primary Care Provider +1- [phone] Encounter Details Date Type Department Care Team (Late st Contact Info) Description 02/11/2021 Scanned Document INTERFACE DEFAULT [address] [place] [address] System, Provider Not In Social History Tobacco [...] Description 09/30/2024 8:00 PM EDT Procedure visit [facility] [address] [place] [address] [address] [place] [address] 10/31/2024 1:00 PM EDT Telemedicine Cancer Center at [facility] 240 [facility] [address] [place] [address] Ronald Mills MD 240 [facility] A1 [place] [address] documented as of this encounter Procedures Procedure [...] documented as of this encounter Care Teams Refractory Furnace Designer Relationship Specialty Start Date End Date Caitlyn Bowie MD [address] [address] PCP - General Internal Medicine 05/06/21 documented as of this encounter
--- OUTSIDE RECORDS SUMMARY | 2024-09-04 17:40 | XMS_ITS | Encounter Summary ---
Author Organization [facility] and [facility] Address 20 [place] [address] Care Team Providers Care Administrative Supervisor Name Role Phone Caitlyn Bowie MD Primary Care Provider +1- [phone] Encounter Details Date Type Department Care Team (Late st Contact Info) Description 10/07/2013 Scanned Document [facility] Oncology Program at [address] [address] Suzy Kong MD [address] [place] [address] Social History Tobacco Use Types Packs/Day [...] Description 09/30/2024 8:00 PM EDT Procedure visit [facility] [address] [place] [address] [place] [address] 10/31/2024 1:00 PM EDT Telemedicine Cancer Center at [address] [address] [place] [address] Ronald Mills MD [address] [place] [address] [address] [place] [address] documented as of this encounter Visit Diagnoses Not on filedocumented in this encounter Additional Health Concerns Infection Onset Date Last Indicated Resolved Time COVID-19 03/05/2022 03/05/2022 03/15/2022 7:18 PM EDT documented as of this encounter Care Teams Administrative Supervisor Relationship Specialty Start Date End Date Caitlyn Bowie MD 3400 [facility] 1 [place] [address] PCP - General Internal Medicine 05/06/21 Henry Kelly MD Pulmonary Department 175 [facility], [address] [place] [address] Physician Pulmonary Disease 09/06/17 06/22/20 documented as of this encounter
--- OUTSIDE RECORDS SUMMARY | 2024-09-04 17:40 | XMS_ITS | Encounter Summary ---
Author Organization [facility] and [facility] Address [address] [place] [address] Care Team Providers Care Law Librarian Name Role Phone Caitlyn Bowie MD Primary Care Provider +1- [phone] Encounter Details Date Type Department Care Team (Late st Contact Info) Description 01/07/2014 Documentation [facility] [address] [place] [address] Shilpi Ibarra [address] [place] [address] Social History Tobacco Use Types Packs/Day Years [...] from the original note were not included. [facility] Progress Note This is a 68 y.o. female who was provided services by [facility]. Service Provided By:: Shilpi Ibarra Patient Status: new Length of Appointment: 60 minutes Pre-Treatment Total: 3.6 Post-Treatment Total: 1.2 documented in this encounter Plan of Treatment Upcoming Encounters Date Type Department Care Team (Late st Contact Info) Description 09/30/2024 8:00 PM EDT Procedure visit [facility] [address] [place] [address] [address] [place] [address] 10/31/2024 1:00 PM EDT Telemedicine [facility] 240 [facility] Building [address] [place], [place] [address] Ronald Mills MD 240 [facility] Max [address]1 [place] [address] documented as of this encounter Visit Diagnoses Not on filedocumented in this encounter Additional Health Concerns Infection Onset Date Last Indicated Resolved Time COVID-19 03/05/2022 03/05/2022 03/15/2022 7:18 PM EDT documented as of this encounter Care Teams Law Librarian Relationship Specialty Start Date End Date Caitlyn Bowie MD 3400 [facility] 1 [place] [address] PCP - General Internal Medicine 05/06/21 Henry Kelly MD Pulmonary Department 175 [facility], [address] [place] [address] Physician Pulmonary Disease 09/06/17 06/22/20 documented as of this encounter
--- OUTSIDE RECORDS SUMMARY | 2024-09-04 17:40 | XMS_ITS | Encounter Summary ---
Author Organization [facility] and [facility] Address [address] [place] [address] Care Team Providers Care Dirt Contractor Name Role Phone Caitlyn Bowie MD Primary Care Provider +1- [phone] Encounter Details Date Type Department Care Team (Late st Contact Info) Description 09/18/2020 Scanned Document INTERFACE DEFAULT [address] [place] [address] System, Provider Not In Social History Tobacco [...] Description 09/30/2024 8:00 PM EDT Procedure visit [facility] [address] [place] [address] [address] [place] [address] 10/31/2024 1:00 PM EDT Telemedicine [facility] Center at [facility] 240 [facility] [address] [place] [address] Ronald Mills MD 240 [facility] A1 [place] [address] documented as of this encounter Visit Diagnoses Not on filedocumented in this encounter Additional Health Concerns Infection Onset Date Last Indicated Resolved Time COVID-19 03/05/2022 03/05/2022 03/15/2022 7:18 PM EDT Assessment Noted Time PHQ-9 Depression Total Score: 2 11/07/19 19 2:06 PM EDT documented as of this encounter Care Teams Dirt Contractor Relationship Specialty Start Date End Date Caitlyn Bowie MD [address] [address] PCP - General Internal Medicine 05/06/21 documented as of this encounter
--- OUTSIDE RECORDS SUMMARY | 2024-09-04 17:41 | XMS_ITS ---
Author Organization [facility] Address [address] [address] Care Team Providers Care Quantity Surveyor Name Role Phone EVELIN RAMSAY Primary Care Provider Yenny Hou Unavailable [phone] REASON FOR VISIT [facility] if[facility] disease dept Encounters Encounter Location Date Provider Diagnosis [facility] [address] [address] 06/11/2024 Yenny Elizalde Plan Of Treatment No Information Progress Notes * ONOFRE WATSON:1945 (79 yo F)Acc No.[id number]:06/11/2024 Patient:?CINDA WATSON :1945???Age:79 Y???Sex:Female Address:[address] [place] [address], [address] * true * Date:? Generated for Arely paige/Sebastian/eTransmitting on:?09/04/2024 05:40 PM EST
--- OUTSIDE RECORDS SUMMARY | 2024-09-04 17:41 | XMS_ITS | Encounter Summary ---
Author Organization [facility] and [facility] Address [address] [place] [address] Care Team Providers Care Computer Repair Instructor Name Role Phone Caitlyn Bowie MD Primary Care Provider +1- [phone] Encounter Details Date Type Department Care Team (Late st Contact Info) Description 12/16/2016 Scanned Document [facility] Health Information Management [address] [place] [address] External, Provider Social History Tobacco Use Types [...] Procedure visit [facility] [address] [place] [address] [address] [place] [address] 10/31/2024 1:00 PM EDT Telemedicine [facility] 240 [facility] Building [address] [place], [place] [address] Ronald Mills MD 240 [facility] A1 [place] [address] documented as of this encounter Procedures Procedure [...] documented as of this encounter Care Teams Computer Repair Instructor Relationship Specialty Start Date End Date Caitlyn Bowie MD 3400 [facility] 1 [place] [address] PCP - General Internal Medicine 05/06/21 Henry Kelly MD Pulmonary Department 175 [facility], [address] [place] [address] Physician Pulmonary Disease 09/06/17 06/22/20 documented as of this encounter
--- OUTSIDE RECORDS SUMMARY | 2024-09-04 17:41 | XMS_ITS | Encounter Summary ---
Author Organization [facility] and [facility] Address [address] [place] [address] Care Team Providers Care Process Specialist Name Role Phone Caitlyn Bowie MD Primary Care Provider +1- [phone] Encounter Details Date Type Department Care Team (Late st Contact Info) Description 03/11/2015 Scanned Document [facility] Health Information Management [address] [place] [address] External, Provider Social History Tobacco Use Types [...] Procedure visit [facility] [address] [place] [address] [address] [place] [address] 10/31/2024 1:00 PM EDT Tele[facility]icine [facility] 240 [facility] Building [address] [place], [place] [address] Ronald Mills MD 240 [facility] [address]1 [place] [address] documented as of this encounter Procedures Procedure Name Priority Date/Time Associated Diagnosis Comments LAB SCAN Routine 03/11/2015 documented in this encounter Results * Lab Scan (03/11/2015) Blood specimen (specimen) us Provider External LAB BLOOD ORDERABLES Edited Re sult - Final [facility] [place], [facility] documented in this encounter Visit Diagnoses Not on filedocumented in this encounter Additional Health Concerns Infection Onset Date Last Indicated Resolved Time COVID-19 03/05/2022 03/05/2022 03/15/2022 7:18 PM EDT documented as of this encounter Care Teams Process Specialist Relationship Specialty Start Date End Date Caitlyn Bowie MD 3400 [facility] 1 [place] [address] PCP - General Internal Medicine 05/06/21 Henry Kelly MD Pulmonary Department 175 [facility], [address] [place] [address] Physician Pulmonary Disease 09/06/17 06/22/20 documented as of this encounter
--- OUTSIDE RECORDS SUMMARY | 2024-09-04 17:41 | XMS_ITS | Encounter Summary ---
Author Organization [facility] Address [address] [place] [address] Care Team Providers Care Firearms Assembly Supervisor Name Role Phone Caitlyn Bowie MD Primary Care Provider +1- [phone] Encounter Details Date Type Department Care Team (Late st Contact Info) Description 06/17/2016 Scanned Document [facility] Health Information Management [address] [place] [address] External, Provider Social History Tobacco Use Types [...] Description 09/30/2024 8:00 PM EDT Procedure visit [facility] [address] [place] [address] [address] [place] [address] 10/31/2024 1:00 PM EDT Telemedicine [facility] at [facility] [address] [facility] [address] [place], [place] [address] Ronald Mills MD 240 [facility] A1 [place] [address] documented as of this encounter Procedures Procedure Name Priority Date/Time Associated Diagnosis Comments XRAY RESULT SCAN Routine 06/17/2016 documented in this encounter Results * Xray Result Scan (06/17/2016) us Provider External IMG SCAN REPORTS Final Result Performing Organization Address City/State/[place] Co de Phone Number [facility] [place], [place], [facility] documented in this encounter Visit Diagnoses Not on filedocumented in this encounter Additional Health Concerns Infection Onset Date Last Indicated Resolved Time COVID-19 03/05/2022 03/05/2022 03/15/2022 7:18 PM EDT documented as of this encounter Care Teams Firearms Assembly Supervisor Relationship Specialty Start Date End Date Caitlyn Bowie MD 3400 [facility] 1 [place] [address] PCP - General Internal Medicine 05/06/21 Henry Kelly MD Pulmonary Department 175 [facility], [address] [place] [address] Physician Pulmonary Disease 09/06/17 06/22/20 documented as of this encounter
--- OUTSIDE RECORDS SUMMARY | 2024-09-04 17:41 | XMS_ITS | Encounter Summary ---
Author Organization [facility] and [facility] Address [address] [place] [address] Care Team Providers Care Candy Mixer Name Role Phone Caitlyn Bowie MD Primary Care Provider +1- [phone] Encounter Details Date Type Department Care Team (Late st Contact Info) Description 07/27/2016 Scanned Document [facility] at [address] [address] Suzy Kong MD [address] [place] [address] Social History Tobacco Use Types Packs/Day [...] EDT Procedure visit [facility] [address] [place] [address] [address] [place] [address] 10/31/2024 1:00 PM EDT Telemedicine Cancer Center at [address] [place] [address] Ronald Mills MD [address] [place] [address], [place] [address] documented as of this encounter Visit Diagnoses Not on filedocumented in this encounter Additional Health Concerns Infection Onset Date Last Indicated Resolved Time COVID-19 03/05/2022 03/05/2022 03/15/2022 7:18 PM EDT documented as of this encounter Care Teams Candy Mixer Relationship Specialty Start Date End Date Caitlyn Bowie MD 3400 [facility] [place] [address] PCP - General Internal Medicine 05/06/21 Henry Kelly MD Pulmonary Department [address] [place] [address], [address] [place] [address] Physician Pulmonary Disease 09/06/17 06/22/20 documented as of this encounter
--- OUTSIDE RECORDS SUMMARY | 2024-09-04 17:41 | XMS_ITS | Encounter Summary ---
Author Organization [facility] Address [address] [place] [address] Care Team Providers Care Oil Field Equipment Mechanic Supervisor Name Role Phone Caitlyn Bowie MD Primary Care Provider +1- [phone] Encounter Details Date Type Department Care Team (Late st Contact Info) Description 11/07/2014 Scanned Document [facility] Health Information Management [address] [place] [address] External, Provider Social History Tobacco Use Types [...] Description 09/30/2024 8:00 PM EDT Procedure visit [facility] [address] [place] [address] [address] [place] [address] 10/31/2024 1:00 PM EDT Telemedicine [facility] at [facility] 240 [facility] [address] [place], [place] [address] Ronald Mills MD 240 [facility] [address]1 [place] [address] documented as of this encounter Visit Diagnoses Not on filedocumented in this encounter Additional Health Concerns Infection Onset Date Last Indicated Resolved Time COVID-19 03/05/2022 03/05/2022 03/15/2022 7:18 PM EDT documented as of this encounter Care Teams Oil Field Equipment Mechanic Supervisor Relationship Specialty Start Date End Date Caitlyn Bowie MD 3400 [facility] [place] [facility] [address] 1 [place] [address] PCP - General Internal Medicine 05/06/21 Henry Kelly MD Pulmonary Department 175 [facility], [address] [place] [address] Physician Pulmonary Disease 09/06/17 06/22/20 documented as of this encounter
--- OUTSIDE RECORDS SUMMARY | 2024-09-04 17:41 | XMS_ITS | Encounter Summary ---
Author Organization [facility] and [facility] Address [address] [place] [address] Care Team Providers Care Mural Artist Name Role Phone Caitlyn Bowie MD Primary Care Provider +1- [phone] Encounter Details Date Type Department Care Team (Late st Contact Info) Description 01/26/2018 Scanned Document [facility] Health Information Management [address] [place] [address] External, Provider Social History Tobacco Use Types [...] Description 09/30/2024 8:00 PM EDT Procedure visit [facility] [address] [place] [address] [address] [place] [address] 10/31/2024 1:00 PM EDT Telemedicine Cancer Center at [facility] 240 [facility] Building [address] [place], [place] [address] Ronald Mills MD 240 [facility] [address]1 [place] [address] documented as of this encounter [...] documented as of this encounter Care Teams Mural Artist Relationship Specialty Start Date End Date Caitlyn Bowie MD 3400 [facility] 1 [place] [address] PCP - General Internal Medicine 05/06/21 Henry Kelly MD Pulmonary Department 175 [facility], [address] [place] [address] Physician Pulmonary Disease 09/06/17 06/22/20 documented as of this encounter
--- OUTSIDE RECORDS SUMMARY | 2024-09-04 17:41 | XMS_ITS | Encounter Summary ---
Author Organization [facility] Address [address] [place] [address] Care Team Providers Care Bi Technical Lead Name Role Phone Caitlyn Bowie MD Primary Care Provider +1- [phone] Encounter Details Date Type Department Care Team (Late st Contact Info) Description 12/14/2016 Scanned Document [facility] Health Information Management [address] [place] [address] External, Provider Social History Tobacco Use Types [...] Description 09/30/2024 8:00 PM EDT Procedure visit [facility] [address] [place] [address] [address] [place] [address] 10/31/2024 1:00 PM EDT Telemedicine [facility] at [facility] [address] [facility] Building [address] [place], [place] [address] Ronald Mills MD 240 [facility] A1 [place] [address] documented as of this encounter Procedures Procedure [...] documented as of this encounter Care Teams Bi Technical Lead Relationship Specialty Start Date End Date Caitlyn Bowie MD 3400 [facility] 1 [place] [address] PCP - General Internal Medicine 05/06/21 Henry Kelly MD Pulmonary Department 175 [facility], [address] [place] [address] Physician Pulmonary Disease 09/06/17 06/22/20 documented as of this encounter
--- OUTSIDE RECORDS SUMMARY | 2024-09-04 17:41 | XMS_ITS | Encounter Summary ---
Author Organization [facility] and [facility] Address [address] [place] [address] Care Team Providers Care Boom Boss Name Role Phone Caitlyn Bowie MD Primary Care Provider +1- [phone] Encounter Details Date Type Department Care Team (Late st Contact Info) Description 02/02/2018 Scanned Document [facility] Health Information Management [address] [place] [address] External, Provider Social History Tobacco Use Types [...] Description 09/30/2024 8:00 PM EDT Procedure visit [facility] [address] [place] [address] [address] [place] [address] 10/31/2024 1:00 PM EDT Telemedicine [facility] at [facility] 240 [facility] Building [address] [place], [place] [phone] Ronald Mills MD 240 [facility] A1 [place] [address] documented as of this encounter Visit Diagnoses Not on filedocumented in this encounter Additional Health Concerns Infection Onset Date Last Indicated Resolved Time COVID-19 03/05/2022 03/05/2022 03/15/2022 7:18 PM EDT documented as of this encounter Care Teams Boom Boss Relationship Specialty Start Date End Date Caitlyn Bowie MD 3400 [facility] 1 [place] [address] PCP - General Internal Medicine 05/06/21 Henry eKlly MD Pulmonary Department 175 [facility], [address] [place] [address] Physician Pulmonary Disease 09/06/17 06/22/20 documented as of this encounter
--- OUTSIDE RECORDS SUMMARY | 2024-09-04 17:41 | XMS_ITS | Encounter Summary ---
Author Organization [facility] and [facility] Address [address] [place] [address] Care Team Providers Care Manager Placement Name Role Phone Caitlyn Bowie MD Primary Care Provider +1- [phone] Encounter Details Date Type Department Care Team (Late st Contact Info) Description 01/26/2018 Scanned Document [facility] Health Information Management [address] [place] [address] External, Provider Social History Tobacco Use Types [...] Description 09/30/2024 8:00 PM EDT Procedure visit [facility] [address] [place] [address] [address] [place] [address] 10/31/2024 1:00 PM EDT Telemedicine Cancer Center at [facility] 240 [facility] Building [address] [place], [place] [address] Ronald Mills MD 240 [facility] [place] [address]1 [place] [address] documented as of this encounter [...] as of this encounter Care Teams Manager Placement Relationship Specialty Start Date End Date Caitlyn Bowie MD 3400 [facility] 1 [place] [address] PCP - General Internal Medicine 05/06/21 Henry Kelly MD Pulmonary Department 175 [facility], [address] [place] [address] Physician Pulmonary Disease 09/06/17 06/22/20 documented as of this encounter
--- OUTSIDE RECORDS SUMMARY | 2024-09-04 17:41 | XMS_ITS | Continuity of Care Document ---
Author Organization [facility] Address [address] [place] [address] [address] [place] [address] Phone Care Team Providers Care Drill Rig Operator Helper Name Role Phone Musa Hughes M.D. Unavailable [...] Encounter [facility], [address] [place] [address], [id number], tel:[phone] [facility] [place] No Information Saul Vigil. [address] [place] [address], [address] [place] [address] , . tel: [phone] Exam Level V [facility], [address] [place] [address], [id number], tel:[phone] [facility] [place] Visual Field Defect UnspOptic NeuritisLow Tension GlaucomaHeadacheH emangioma, Unspecified SiteMultiple SclerosisPhotopsi aDiplopiaConverge nce InsufficiencyDry Eye Syndrome Huy Foster. [address] [place] [address], [address] [place] [address] , . tel: [phone] Referring Provider: MD Mariama Persaud, [address] [place] [address] [place], [address]. tel:[phone] New Pt. Level V [facility] Renea Carrillo, [address] [place] [address], [id number], tel:[phone] [facility] [place] - (chief complaint) - (chief complaint) - (chief complaint) - (chief complaint) - (chief complaint) - (chief complaint) Optic NeuritisHeadacheV isual Field Defect UnspLow Tension GlaucomaLow Tension GlaucomaOptic NeuritisSeizure DisorderVisual Field Defect UnspHemangioma, Unspecified SiteConvergence InsufficiencyCoag defect von Willebrand dis 1 Huy Foster. [address] [place] [address], [id number] , . tel: [phone] Referring Provider: MD Mariama Persaud, [address] [place] [address] [place], [address]. tel:[phone] Family History Family Member Type Diagnosis Age At Onset Sister Problem (finding) Leukemia Mother Problem (finding) Cancer, lung Payers Payer name Insurance type Covered libertarian ID Authoriza tion(s) Medicare Primary [place] [id number] BCBS NATIONAL PLAN [id number] Social History Type Description Quantity Date Captured [...]
--- OUTSIDE RECORDS SUMMARY | 2024-09-04 17:41 | XMS_ITS | Encounter Summary ---
Author Organization [facility] and [facility] Address [address] [place] [address] Care Team Providers Care Casino Supervisor Name Role Phone Caitlyn Bowie MD Primary Care Provider +1- [phone] Encounter Details Date Type Department Care Team (Late st Contact Info) Description 12/14/2016 Scanned Document [facility] Health Information Management [address] [place] [address] External, Provider Social History Tobacco Use Types [...] Description 09/30/2024 8:00 PM EDT Procedure visit [facility] [address] [place] [address] [address] [place] [address] 10/31/2024 1:00 PM EDT Telemedicine [facility] Center at [facility] 240 [facility] Building [address] [place], [place] [address] Ronald Mills MD 240 [facility] A1 [place] [address] documented as of this encounter Visit Diagnoses Not on filedocumented in this encounter Additional Health Concerns Infection Onset Date Last Indicated Resolved Time COVID-19 03/05/2022 03/05/2022 03/15/2022 7:18 PM EDT documented as of this encounter Care Teams Casino Supervisor Relationship Specialty Start Date End Date Caitlyn Bowie MD 3400 [facility] Max 1 [place] [address] PCP - General Internal Medicine 05/06/21 Henry Kelly MD Pulmonary Department 175 [facility], [address] [place] [address] Physician Pulmonary Disease 09/06/17 06/22/20 documented as of this encounter
--- OUTSIDE RECORDS SUMMARY | 2024-09-04 17:41 | XMS_ITS | Encounter Summary ---
Author Organization [facility] and [facility] Address [address] [place] [address] Care Team Providers Care Cad Technician Name Role Phone Caitlyn Bowie MD Primary Care Provider +1- [phone] Encounter Details Date Type Department Care Team (Late st Contact Info) Description 01/28/2018 Scanned Document [facility] Health Information Management [address] [place] [address] External, Provider Social History Tobacco Use Types [...] Description 09/30/2024 8:00 PM EDT Procedure visit [facility] [address] [place] [address] [address] [place] [address] 10/31/2024 1:00 PM EDT Telemedicine [facility] Center at [facility] 240 [facility] [address] [place], [place] [address] Ronald Mills MD 240 [facility] A1 [place] [address] documented as of this encounter Visit Diagnoses Not on filedocumented in this encounter Additional Health Concerns Infection Onset Date Last Indicated Resolved Time COVID-19 03/05/2022 03/05/2022 03/15/2022 7:18 PM EDT documented as of this encounter Care Teams Cad Technician Relationship Specialty Start Date End Date Caitlyn Bowie MD 3400 [facility] 1 [place] [address] PCP - General Internal Medicine 05/06/21 Henry Kelly MD Pulmonary Department 175 [facility], [address] [place] [address] Physician Pulmonary Disease 09/06/17 06/22/20 documented as of this encounter
--- OUTSIDE RECORDS SUMMARY | 2024-09-04 17:41 | XMS_ITS | Encounter Summary ---
Author Organization [facility] Address [address] [place] [address] Care Team Providers Care Dust Puller Name Role Phone Caitlyn Bowie MD Primary Care Provider +1- [phone] Encounter Details Date Type Department Care Team (Late st Contact Info) Description 04/04/2016 Scanned Document [facility] Health Information Management [address] [place] [address] External, Provider Social History Tobacco Use Types [...] Description 09/30/2024 8:00 PM EDT Procedure visit [facility] [address] [place] [address] [address] [place] [address] 10/31/2024 1:00 PM EDT [facility]medicine [facility] 240 [facility] Building [address] [place], [place] [address] Ronald Mills MD 240 [facility] A1 [place] [address] documented as of this encounter Procedures Procedure Name Priority Date/Time Associated Diagnosis Comments LAB SCAN Routine 04/04/2016 documented in this encounter Results * Lab Scan (04/04/2016) Blood specimen (specimen) us Provider External LAB BLOOD ORDERABLES Final Res ult Performing Organization Address City/State/[facility] Co de Phone Number [facility] documented in this encounter Visit Diagnoses Not on filedocumented in this encounter Additional Health Concerns Infection Onset Date Last Indicated Resolved Time COVID-19 03/05/2022 03/05/2022 03/15/2022 7:18 PM EDT documented as of this encounter Care Teams Dust Puller Relationship Specialty Start Date End Date Caitlyn Bowie MD 3400 [facility] Max 1 [place] [address] PCP - General Internal Medicine 05/06/21 Henry Kelly MD Pulmonary Department 175 [facility], [address] [place] [address] Physician Pulmonary Disease 09/06/17 06/22/20 documented as of this encounter
--- OUTSIDE RECORDS SUMMARY | 2024-09-04 17:41 | XMS_ITS | Encounter Summary ---
Author Organization [facility] and [facility] Address [address] [place] [address] Care Team Providers Care Electrical Foreman Name Role Phone Caitlyn Bowie MD Primary Care Provider +1- [phone] Encounter Details Date Type Department Care Team (Late st Contact Info) Description 02/02/2018 Scanned Document [facility] Health Information Management [address] [place] [address] External, Provider Social History Tobacco Use Types [...] Description 09/30/2024 8:00 PM EDT Procedure visit [facility] [address] [place] [address] [address] [place] [address] 10/31/2024 1:00 PM EDT Telemedicine Cancer Center at [facility] 240 [facility] Building [address] [place], [place] [address] Ronald Mills MD 240 [facility] A1 [place] [address] documented as of this encounter [...] documented as of this encounter Care Teams Electrical Foreman Relationship Specialty Start Date End Date Caitlyn Bowie MD 3400 [facility] 1 [place] [address] PCP - General Internal Medicine 05/06/21 Henry Kelly MD Pulmonary Department 175 [facility], [address] [place] [address] Physician Pulmonary Disease 09/06/17 06/22/20 documented as of this encounter
--- OUTSIDE RECORDS SUMMARY | 2024-09-04 17:41 | XMS_ITS | Encounter Summary ---
Author Organization [facility] and [facility] Address [address] [place] [address] Care Team Providers Care Speech Correction Assistant Name Role Phone Caitlyn Bowie MD Primary Care Provider +1- [phone] Encounter Details Date Type Department Care Team (Late st Contact Info) Description 06/17/2016 Scanned Document [facility] Health Information Management [address] [place] [address] External, Provider Social History Tobacco Use Types [...] Description 09/30/2024 8:00 PM EDT Procedure visit [facility] [address] [place] [address] [address] [place] [address] 10/31/2024 1:00 PM EDT Telemedicine [facility] 240 [facility] Building [address] [place], [place] [address] Ronald Mills MD 240 [facility] A1 [place] [address] documented as of this encounter Visit Diagnoses Not on filedocumented in this encounter Additional Health Concerns Infection Onset Date Last Indicated Resolved Time COVID-19 03/05/2022 03/05/2022 03/15/2022 7:18 PM EDT documented as of this encounter Care Teams Speech Correction Assistant Relationship Specialty Start Date End Date Caitlyn Bowie MD [address] [facility] Max 1 [place] [address] PCP - General Internal Medicine 05/06/21 Henry Kelly MD Pulmonary Department 175 [facility], [address] [place] [address] Physician Pulmonary Disease 09/06/17 06/22/20 documented as of this encounter
--- OUTSIDE RECORDS SUMMARY | 2024-09-04 17:41 | XMS_ITS | Encounter Summary ---
Author Organization [facility] Address [address] [place] [address] Care Team Providers Care Fitness Services Manager Name Role Phone Caitlyn Bowie MD Primary Care Provider +1- [phone] Encounter Details Date Type Department Care Team (Late st Contact Info) Description 01/30/2018 Scanned Document [facility] Health Information Management [address] [place] [phone] External, Provider Social History Tobacco Use Types [...] 09/30/2024 8:00 PM EDT Procedure visit [facility] [address] [place] [address] [address] [place] [address] 10/31/2024 1:00 PM EDT Telemedicine Cancer Center at [facility] 240 [facility] Building [address] [place], [place] [address] Ronald Mills MD 240 [facility] [address]1 [place] [address] documented as of this encounter [...] documented as of this encounter Care Teams Fitness Services Manager Relationship Specialty Start Date End Date Caitlyn Bowie MD 3400 [facility] 1 [place] [address] PCP - General Internal Medicine 05/06/21 Henry Kelly MD Pulmonary Department 175 [facility], [address] [place] [address] Physician Pulmonary Disease 09/06/17 06/22/20 documented as of this encounter
--- OUTSIDE RECORDS SUMMARY | 2024-09-04 17:41 | XMS_ITS | Encounter Summary ---
Author Organization [facility] Address [address] [place] [address] Care Team Providers Care Capacity Planning Analyst Name Role Phone Caitlyn Bowie MD Primary Care Provider +1- [phone] Encounter Details Date Type Department Care Team (Late st Contact Info) Description 10/10/[address] [facility] Health Information Management [address] [place] [address] External, Provider Social History Tobacco Use Types [...] Description 09/30/2024 8:00 PM EDT Procedure visit [facility] [address] [place] [address] [address] [place] [address] 10/31/2024 1:00 PM EDT Telemedicine [facility] at [facility] 240 [facility] [address] [place], [place] [address] Ronald Mills MD 240 [facility] [address]1 [place] [phone] documented as of this encounter Visit Diagnoses Not on filedocumented in this encounter Additional Health Concerns Infection Onset Date Last Indicated Resolved Time COVID-19 03/05/2022 03/05/2022 03/15/2022 7:18 PM EDT documented as of this encounter Care Teams Capacity Planning Analyst Relationship Specialty Start Date End Date Caitlyn Boiwe MD 3400 [facility] [address] 1 [place] [address] PCP - General Internal Medicine 05/06/21 Henry Kelly MD Pulmonary Department 175 [facility], [address] [place] [address] Physician Pulmonary Disease 09/06/17 06/22/20 documented as of this encounter
--- OUTSIDE RECORDS SUMMARY | 2024-09-04 17:41 | XMS_ITS | Encounter Summary ---
Author Organization [facility] Address [address] [place] [address] Care Team Providers Care Welding Process Engineer Name Role Phone Caitlyn Bowie MD Primary Care Provider +1- [phone] Encounter Details Date Type Department Care Team (Late st Contact Info) Description 07/08/2016 Scanned Document [facility] Health Information Management [address] [place] [address] External, Provider Social History Tobacco Use Types [...] 09/30/2024 8:00 PM EDT Procedure visit [facility] [address] [place] [address] [address] [place] [address] 10/31/2024 1:00 PM EDT Telemedicine [facility] at [facility] 240 [facility] Building [address] [place], [place] [address] Ronald Mills MD 240 [facility] [address]1 [place] [address] documented as of this encounter Procedures Procedure Name Priority Date/Time Associated Diagnosis Comments LAB SCAN Routine 07/08/2016 documented in this encounter Results * Lab Scan (07/08/2016) Blood specimen (specimen) us Provider External LAB BLOOD ORDERABLES Final Res ult Performing Organization Address City/State/[facility] Co de Phone Number [facility] documented in this encounter Visit Diagnoses Not on filedocumented in this encounter Additional Health Concerns Infection Onset Date Last Indicated Resolved Time COVID-19 03/05/2022 03/05/2022 03/15/2022 7:18 PM EDT documented as of this encounter Care Teams Welding Process Engineer Relationship Specialty Start Date End Date Caitlyn Bowie MD 3400 [facility] [address] 1 [place] [address] PCP - General Internal Medicine 05/06/21 Henry Kelly MD Pulmonary Department 175 [facility], [address] [place] [address] Physician Pulmonary Disease 09/06/17 06/22/20 documented as of this encounter
--- OUTSIDE RECORDS SUMMARY | 2024-09-04 17:41 | XMS_ITS | Encounter Summary ---
Author Organization [facility] Address [address] [place] [address] Care Team Providers Care Secretary Bookkeeper Name Role Phone Caitlyn Bowie MD Primary Care Provider +1- [phone] Encounter Details Date Type Department Care Team (Late st Contact Info) Description 12/04/2014 Scanned Document [facility] Health Information Management [address] [place] [address] External, Provider Social History Tobacco Use Types [...] Description 09/30/2024 8:00 PM EDT Procedure visit [facility] [address] [place] [address] [address] [place] [address] 10/31/2024 1:00 PM EDT Telemedicine Cancer [facility] at [facility] 240 [facility] [address] [place], [place] [address] Ronald Mills MD 240 [facility] [address]1 [place] [address] documented as of this encounter Procedures Procedure Name Priority Date/Time Associated Diagnosis Comments LAB SCAN Routine 12/04/2014 documented in this encounter Results * Lab Scan (12/04/2014) Blood specimen (specimen) us Provider External LAB BLOOD ORDERABLES Final Res ult Performing Organization Address City/State/[facility] Co de Phone Number [facility] documented in this encounter Visit Diagnoses Not on filedocumented in this encounter Additional Health Concerns Infection Onset Date Last Indicated Resolved Time COVID-19 03/05/2022 03/05/2022 03/15/2022 7:18 PM EDT documented as of this encounter Care Teams Secretary Bookkeeper Relationship Specialty Start Date End Date Caitlyn Bowie MD 34[address] [facility] [address] 1 [place] [address] PCP - General Internal Medicine 05/06/21 Henry Kelly MD Pulmonary Department 175 [facility], [address] [place] [address] Physician Pulmonary Disease 09/06/17 06/22/20 documented as of this encounter
--- OUTSIDE RECORDS SUMMARY | 2024-09-04 17:41 | XMS_ITS | Encounter Summary ---
Author Organization [facility] Address [address] [place] [address] Care Team Providers Care Parks And Recreation Manager Name Role Phone Caitlyn Bowie MD Primary Care Provider +1- [phone] Encounter Details Date Type Department Care Team (Late st Contact Info) Description 01/26/2018 Scanned Document [facility] Health Information Management [address] [place] [address] External, Provider Social History Tobacco Use Types [...] Description 09/30/2024 8:00 PM EDT Procedure visit [facility] [address] [place] [address] [address] [place] [phone] 10/31/2024 1:00 PM EDT Telemedicine Cancer Center at [facility] 240 [facility] Building [address] [place], [place] [phone] Ronald Mills MD 240 [facility] [address]1 [place] [address] documented as of this encounter [...] documented as of this encounter Care Teams Parks And Recreation Manager Relationship Specialty Start Date End Date Caitlyn Bowie MD 3400 [facility] 1 [place] [address] PCP - General Internal Medicine 05/06/21 Henry Kelly MD Pulmonary Department 175 [facility], [address] [place] [address] Physician Pulmonary Disease 09/06/17 06/22/20 documented as of this encounter
--- OUTSIDE RECORDS SUMMARY | 2024-09-04 17:41 | XMS_ITS | Encounter Summary ---
Author Organization [facility] and [facility] Address [address] [place] [address] Care Team Providers Care Silk Screen Printing Racker Name Role Phone Caitlyn Bowie MD Primary Care Provider +1- [phone] Encounter Details Date Type Department Care Team (Late st Contact Info) Description 01/27/2018 Scanned Document [facility] Health Information Management [address] [place] [address] External, Provider Social History Tobacco Use Types [...] EDT Procedure visit [facility] [address] [place] [address] [address] [place] [address] 10/31/2024 1:00 PM EDT Telemedicine [facility] 240 [facility] Building [address] [place], [place] [address] Ronald Mills MD 240 [facility] [address]1 [place] [address] documented as of this encounter [...] documented as of this encounter Care Teams Silk Screen Printing Racker Relationship Specialty Start Date End Date Caitlyn Bowie MD 3400 [facility] 1 [place] [address] PCP - General Internal Medicine 05/06/21 Henry Kelly MD Pulmonary Department 175 [facility], [address] [place] [address] Physician Pulmonary Disease 09/06/17 06/22/20 documented as of this encounter
--- OUTSIDE RECORDS SUMMARY | 2024-09-04 17:41 | XMS_ITS | Encounter Summary ---
Author Organization [facility] Address [address] [place] [address] Care Team Providers Care Occupational Health And Safety Adviser Name Role Phone Caitlyn Bowie MD Primary Care Provider +1- [phone] Encounter Details Date Type Department Care Team (Late st Contact Info) Description 03/13/2015 Scanned Document [facility] Health Information Management [address] [place] [address] External, Provider Social History Tobacco Use Types [...] Description 09/30/2024 8:00 PM EDT Procedure visit [facility] [address] [place] [address] [address] [place] [address] 10/31/2024 1:00 PM EDT [facility] 240 [facility] Building [address] [place], [place] [address] Ronald Mills MD 240 [facility] [address]1 [place] [address] documented as of this encounter Procedures Procedure Name Priority Date/Time Associated Diagnosis Comments LAB SCAN Routine 02/16/2015 LAB SCAN Routine 02/16/2015 documented in this encounter Results * Lab Scan (02/16/2015) Blood specimen (specimen) Provider External LAB BLOOD ORDERABLES Final Res ult Performing Organization Address [facility] Co de Phone Number [facility] * Lab Scan (02/16/2015) Blood specimen (specimen) Provider External LAB BLOOD ORDERABLES Final Res ult Performing Organization Address [facility] Co de Phone Number [facility] documented in this encounter Visit Diagnoses Not on filedocumented in this encounter Additional Health Concerns Infection Onset Date Last Indicated Resolved Time COVID-19 03/05/2022 03/05/2022 03/15/2022 7:18 PM EDT documented as of this encounter Care Teams Occupational Health And Safety Adviser Relationship Specialty Start Date End Date Caitlyn Bowie MD 3400 [facility] 1 [place] [address] PCP - General Internal Medicine 05/06/21 Henry Kelly MD Pulmonary Department 175 [facility], [address] [place] [address] Physician Pulmonary Disease 09/06/17 06/22/20 documented as of this encounter
--- OUTSIDE RECORDS SUMMARY | 2024-09-04 17:41 | XMS_ITS | Encounter Summary ---
Author Organization [facility] Address [address] [place] [address] Care Team Providers Care Production Illustrator Name Role Phone Caitlyn Bowie MD Primary Care Provider +1- [phone] Reason for Referral * Imaging (Routine) - Closed Specialty Diagnoses / Procedures Referred By Contac t Referred To Contact Procedures NM Lung Ventilation Perfusion ([facility]) External, Provider Referral ID Status Reason Start Date Expiration Date Visits Re quested Visits Authorized [id number] Closed 08/22/2016 08/22/2017 4 4 Encounter Details Date Type Department Care Team (Late st Contact Info) Description 08/22/2016 Scanned Document Thoracic Oncology Program at [address] [address] External, Provider Social History Tobacco Use Types [...] PM EDT Procedure visit [facility] [address] [place] [phone] 10/31/2024 1:00 PM EDT Telemedicine Cancer Center at [facility] [place] [address] [place], [place] [address] Ronald Mills MD [address] [place] [address] documented as of this encounter Procedures Procedure Name Priority Date/Time Associated Diagnosis Comments XRAY RESULT SCAN Routine 07/27/2016 CT RESULT SCAN Routine 07/27/2016 CT RESULT SCAN Routine 07/27/2016 CARDIAC EKG RESULT SCAN Routine 07/27/2016 LAB SCAN Routine 07/27/2016 NM LUNG VENTILATION PERFUSIO N ([facility]) Routine 07/27/2016 documented in this encounter Results * Xray Result Scan (07/27/2016) us Provider External IMG SCAN REPORTS Final Result Performing Organization Address [facility]/ZIP Co de Phone Number [facility] * CT Result Scan (07/27/2016) us Provider External IMG SCAN REPORTS Final Result Performing Organization Address [facility]/ZIP Co de Phone Number [facility] * Cardiac EKG Result Scan (07/27/2016) us Provider External CV CARDIAC REPORT (CVR) Final Result Performing Organization Address [facility]/ZIP Co de Phone Number [facility] [place], [facility] * CT Result Scan (07/27/2016) us Provider External IMG SCAN REPORTS Final Result Performing Organization Address [facility]/ZIP Co de Phone Number [facility] * Lab Scan (07/27/2016) Blood specimen (specimen) us Provider External LAB BLOOD ORDERABLES Final Res ult [facility] [place], [place], [place] * NM Lung Ventilation Perfusion ([facility]) (07/27/2016) Anatomical Region Laterality Modality Chest, Lung Nuclear Medicine us Provider External IMG NM ORDERABLES Final Result documented in this encounter Visit Diagnoses Not on filedocumented in this encounter Additional Health Concerns Infection Onset Date Last Indicated Resolved Time COVID-19 03/05/2022 03/05/2022 03/15/2022 7:18 PM EDT documented as of this encounter Care Teams Production Illustrator Relationship Specialty Start Date End Date Caitlyn Bowie MD 3400 [facility] 1 [place] [address] PCP - General Internal Medicine 05/06/21 Henry Kelly MD Pulmonary Department 175 [facility], [address] [place] [address] Physician Pulmonary Disease 09/06/17 06/22/20 documented as of this encounter
--- OUTSIDE RECORDS SUMMARY | 2024-09-04 17:41 | XMS_ITS | Encounter Summary ---
Author Organization [facility] Address [address] [place] [address] Care Team Providers Care Dramatic Critic Name Role Phone Caitlyn Bowie MD Primary Care Provider +1- [phone] Encounter Details Date Type Department Care Team (Late st Contact Info) Description 02/19/2015 Scanned Document [facility] Health Information Management [address] [place] [address] External, Provider Social History Tobacco Use Types [...] Description 09/30/2024 8:00 PM EDT Procedure visit [facility] [address] [place] [address] [address] [place] [address] 10/31/2024 1:00 PM EDT Telemedicine [facility] [address] [facility] [address] [place], [place] [address] Ronald Mills MD 240 [facility] [address]1 [place] [address] documented as of this encounter Procedures Procedure Name Priority Date/Time Associated Diagnosis Comments LAB SCAN Routine 02/19/2015 documented in this encounter Results * Lab Scan (02/19/2015) Blood specimen (specimen) us Provider External LAB BLOOD ORDERABLES Final Res ult Performing Organization Address City/State/[facility] Co de Phone Number [facility] documented in this encounter Visit Diagnoses Not on filedocumented in this encounter Additional Health Concerns Infection Onset Date Last Indicated Resolved Time COVID-19 03/05/2022 03/05/2022 03/15/2022 7:1 8 PM EDT documented as of this encounter Care Teams Dramatic Critic Relationship Specialty Start Date End Date Caitlyn Bowie MD 3400 [facility] Max 1 [place] [address] PCP - General Internal Medicine 05/06/21 Henry Kelly MD Pulmonary Department 175 [facility], [address] [place] [address] Physician Pulmonary Disease 09/06/17 06/22/20 documented as of this encounter
--- OUTSIDE RECORDS SUMMARY | 2024-09-04 17:41 | XMS_ITS | Encounter Summary ---
Author Organization [facility] Address [address] [place] [address] Care Team Providers Care Fighter Pilot Name Role Phone Caitlyn Bowie MD Primary Care Provider +1- [phone] Encounter Details Date Type Department Care Team (Late st Contact Info) Description 11/09/2014 Scanned Document [facility] Health Information Management [address] [place] [address] External, Provider Social History Tobacco Use Types [...] Description 09/30/2024 8:00 PM EDT Procedure visit [facility] [address] [place] [address] [address] [place] [address] 10/31/2024 1:00 PM EDT Telemedicine Cancer Center at [facility] [address] [facility] [address] [place], [place] [address] Ronald Mills MD 240 [facility] A1 [place] [phone] documented as of this encounter Visit Diagnoses Not on filedocumented in this encounter Additional Health Concerns Infection Onset Date Last Indicated Resolved Time COVID-19 03/05/2022 03/05/2022 03/15/2022 7:18 PM EDT documented as of this encounter Care Teams Fighter Pilot Relationship Specialty Start Date End Date Caitlyn Bowie MD 3400 [facility] [address] 1 [place] [address] PCP - General Internal Medicine 05/06/21 Henry Kelly MD Pulmonary Department 175 [facility], [address] [place] [address] Physician Pulmonary Disease 09/06/17 06/22/20 documented as of this encounter
--- OUTSIDE RECORDS SUMMARY | 2024-09-04 17:41 | XMS_ITS | Encounter Summary ---
Author Organization [facility] Address [address] [place] [address] Care Team Providers Care Prepress Stripper Name Role Phone Caitlyn Bowie MD Primary Care Provider +1- [phone] Encounter Details Date Type Department Care Team (Late st Contact Info) Description 02/01/2018 Scanned Document [facility] Health Information Management [address] [place] [address] External, Provider Social History Tobacco Use Types [...] Description 09/30/2024 8:00 PM EDT Procedure visit [facility] [address] [place] [address] [address] [place] [address] 10/31/2024 1:00 PM EDT Telemedicine Cancer Center at [facility] 240 [facility] Building [address] [place], [place] [phone] Ronald Mills MD 240 [facility] A1 [place] [address] documented as of this [...] documented as of this encounter Care Teams Prepress Stripper Relationship Specialty Start Date End Date Caitlyn Bowie MD 3400 [facility] 1 [place] [address] PCP - General Internal Medicine 05/06/21 Henry Kelly MD Pulmonary Department 175 [facility], [address] [place] [address] Physician Pulmonary Disease 09/06/17 06/22/20 documented as of this encounter
--- OUTSIDE RECORDS SUMMARY | 2024-09-04 17:41 | XMS_ITS | Encounter Summary ---
Author Organization [facility] Address [address] [place] [address] Care Team Providers Care Human Geography Faculty Member Name Role Phone Caitlyn Bowie MD Primary Care Provider +1- [phone] Encounter Details Date Type Department Care Team (Late st Contact Info) Description 07/27/2016 Scanned Document Thoracic Oncology Program at [address] [address] Suzy Kong MD [address] [place] [phone] Social History Tobacco Use Types Packs/Day [...] Description 09/30/2024 8:00 PM EDT Procedure visit [facility] [address] [place] [address] [address] [place] [address] 10/31/2024 1:00 PM EDT Telemedicine Cancer Center at [address] [place] [address] Ronald Mills MD [address] [place] [address], [place] [address] documented as of this encounter Visit Diagnoses Not on filedocumented in this encounter Additional Health Concerns Infection Onset Date Last Indicated Resolved Time COVID-19 03/05/2022 03/05/2022 03/15/2022 7:18 PM EDT documented as of this encounter Care Teams Human Geography Faculty Member Relationship Specialty Start Date End Date Caitlyn Bowie MD 3400 [facility] 1 [place] [address] PCP - General Internal Medicine 05/06/21 Henry Kelly MD Pulmonary Department [address] [place] [address], [address] [place] [address] Physician Pulmonary Disease 09/06/17 06/22/20 documented as of this encounter
--- OUTSIDE RECORDS SUMMARY | 2024-09-04 17:41 | XMS_ITS | Encounter Summary ---
Author Organization [facility] and [facility] Address [address] [place] [address] Care Team Providers Care Mill Beam Fitter Name Role Phone Caitlyn Bowie MD Primary Care Provider +1- [phone] Encounter Details Date Type Department Care Team (Late st Contact Info) Description 04/23/2024 Scanned Document INTERFACE DEFAULT [address] [place] [address] System, Provider Not In Social History Tobacco [...] EDT Procedure visit [facility] [address] [place] [address] [address] [place] [address] 10/31/2024 1:00 PM EDT Telemedicine Cancer Center at [facility] 240 [facility] [address] [place] [address] Ronald Mills MD 240 [facility] [address]1 [place] [address] documented as of this encounter Procedures Procedure [...] documented as of this encounter Care Teams Mill Beam Fitter Relationship Specialty Start Date End Date Caitlyn Bowie MD [address] [address] PCP - General Internal Medicine 05/06/21 documented as of this encounter
--- OUTSIDE RECORDS SUMMARY | 2024-09-04 17:41 | XMS_ITS | Encounter Summary ---
Author Organization [facility] and [facility] Address [address] [place] [address] Care Team Providers Care Posting Machine Operator Name Role Phone Caitlyn Bowie MD Primary Care Provider +1- [phone] Encounter Details Date Type Department Care Team (Late st Contact Info) Description 12/16/2016 Scanned Document [facility] Health Information Management [address] [place] [address] External, Provider Social History Tobacco Use Types [...] Description 09/30/2024 8:00 PM EDT Procedure visit [facility] [address] [place] [address] [address] [place] [address] 10/31/2024 1:00 PM EDT Telemedicine Cancer Center at [facility] 240 [facility] [address] [place], [place] [address] Ronald Mills MD 240 [facility] [address]1 [place] [address] documented as of this encounter Procedures Procedure [...] documented as of this encounter Care Teams Posting Machine Operator Relationship Specialty Start Date End Date Caitlyn Bowie MD 3400 [facility] 1 [place] [address] PCP - General Internal Medicine 05/06/21 Henry Kelly MD Pulmonary Department 175 [facility], [address] [place] [address] Physician Pulmonary Disease 09/06/17 06/22/20 documented as of this encounter
--- OUTSIDE RECORDS SUMMARY | 2024-09-04 17:41 | XMS_ITS | Encounter Summary ---
Author Organization [facility] and [facility] Address [address] [place] [address] Care Team Providers Care Perinatal Coordinator Name Role Phone Caitlyn Bowie MD Primary Care Provider +1- [phone] Encounter Details Date Type Department Care Team (Late st Contact Info) Description 04/19/2024 Scanned Document INTERFACE DEFAULT [address] [place] [address] System, Provider Not In Social History Tobacco [...] 09/30/2024 8:00 PM EDT Procedure visit [facility] [address] [place] [address] [address] [place] [phone] 10/31/2024 1:00 PM EDT Telemedicine Cancer Center at [facility] [address] [facility] [address] [place] [address] Ronald Mills MD [address] [facility] [address] [place] [phone] documented as of this encounter Procedures Procedure [...] documented as of this encounter Care Teams Perinatal Coordinator Relationship Specialty Start Date End Date Caitlyn Bowie MD [facility] [address] [address] PCP - General Internal Medicine 05/06/21 documented as of this encounter
--- OUTSIDE RECORDS SUMMARY | 2024-09-04 17:41 | XMS_ITS | Encounter Summary ---
Author Organization [facility] and [facility] Address [address] [place] [address] Care Team Providers Care Rat Exterminator Name Role Phone Caitlyn Bowie MD Primary Care Provider +1- [phone] Encounter Details Date Type Department Care Team (Late st Contact Info) Description 07/27/2016 Scanned Document Thoracic Oncology Program at [address] [address] Suzy Kong MD [address] [place] [address] Social History Tobacco Use Types Packs/Day [...] Description 09/30/2024 8:00 PM EDT Procedure visit [facility] [address] [place] [address] [address] [place] [address] 10/31/2024 1:00 PM EDT Telemedicine Cancer Center at [address] [place] [address] Ronald Mills MD [address] [place] [address], [place] [address] documented as of this encounter Visit Diagnoses Not on filedocumented in this encounter Additional Health Concerns Infection Onset Date Last Indicated Resolved Time COVID-19 03/05/2022 03/05/2022 03/15/2022 7:18 PM EDT documented as of this encounter Care Teams Rat Exterminator Relationship Specialty Start Date End Date Caitlyn Bowie MD [address] [facility] 1 [place] [address] PCP - General Internal Medicine 05/06/21 [place] Kelly MD Pulmonary Department [address] [place] [address], [address] [place] [address] Physician Pulmonary Disease 09/06/17 06/22/20 documented as of this encounter
--- OUTSIDE RECORDS SUMMARY | 2024-09-04 17:41 | XMS_ITS | Encounter Summary ---
Author Organization [facility] and [facility] Address [address] [place] [address] Care Team Providers Care Manufacturing Engineer Name Role Phone Caitlyn Bowie MD Primary Care Provider +1- [phone] Encounter Details Date Type Department Care Team (Late st Contact Info) Description 06/17/2016 Scanned Document [facility] Health Information Management [address] [place] [address] External, Provider Social History Tobacco Use Types [...] Description 09/30/2024 8:00 PM EDT Procedure visit [facility] [address] [place] [address] [address] [place] [address] 10/31/2024 1:00 PM EDT Telemedicine [facility] at [facility] [address] [facility] [address] [place], [place] [address] Ronald Mills MD 240 [facility] [address] [place] [phone] documented as of this encounter Visit Diagnoses Not on filedocumented in this encounter Additional Health Concerns Infection Onset Date Last Indicated Resolved Time COVID-19 03/05/2022 03/05/2022 03/15/2022 7:18 PM EDT documented as of this encounter Care Teams Manufacturing Engineer Relationship Specialty Start Date End Date Caitlyn Bowie MD 34[address] [facility] [address] 1 [place] [address] PCP - General Internal Medicine 05/06/21 [place] Kelly MD Pulmonary Department 175 [facility], [address] [place] [address] Physician Pulmonary Disease 09/06/17 06/22/20 documented as of this encounter
--- OUTSIDE RECORDS SUMMARY | 2024-09-04 17:41 | XMS_ITS | Encounter Summary ---
Author Organization [facility] Address [address] [place] [address] Care Team Providers Care Ed Physicians Name Role Phone Caitlyn Bowie MD Primary Care Provider +1- [phone] Encounter Details Date Type Department Care Team (Late st Contact Info) Description 03/26/2015 Scanned Document Cardiovascular Medicine at [address] [place] [address] Norma Renee MD [address] [place] [phone] Social History Tobacco Use Types Packs/Day Years [...] Description 09/30/2024 8:00 PM EDT Procedure visit [facility] [address] [place] [address] [address] [place] [address] 10/31/2024 1:00 PM EDT Telemed[facility] [address] [facility] [address] [place] [address] Ronald Mills MD [address] [facility] [address] [place] [address] documented as of this encounter Visit Diagnoses Not on filedocumented in this encounter Additional Health Concerns Infection Onset Date Last Indicated Resolved Time COVID-19 03/05/2022 03/05/2022 03/15/2022 7:18 PM EDT documented as of this encounter Care Teams Ed Physicians Relationship Specialty Start Date End Date Caitlyn Bowie MD [address] [facility] 1 [place] [address] PCP - General Internal Medicine 05/06/21 [place] Kelly MD Pulmonary Department 175 [facility], [address] [place] [address] Physician Pulmonary Disease 09/06/17 06/22/20 documented as of this encounter
--- OUTSIDE RECORDS SUMMARY | 2024-09-04 17:41 | XMS_ITS | Encounter Summary ---
Author Organization [facility] and [facility] Address [address] [place] [address] Care Team Providers Care Broadcast Journalist Name Role Phone Caitlyn Bowie MD Primary Care Provider +1- [phone] Encounter Details Date Type Department Care Team (Late st Contact Info) Description 01/27/2018 Scanned Document [facility] Information Management [address] [place] [address] External, Provider Social History Tobacco Use Types [...] Description 09/30/2024 8:00 PM EDT Procedure visit [facility] [address] [place] [address] [address] [place] [phone] 10/31/2024 1:00 PM EDT Telemedicine Cancer Center at [facility] [address] [facility] [address] [place], [place] [phone] Ronald Mills MD 240 [facility] [address] [place] [address] documented as of this encounter Visit Diagnoses Not on filedocumented in this encounter Additional Health Concerns Infection Onset Date Last Indicated Resolved Time COVID-19 03/05/2022 03/05/2022 03/15/2022 7:18 PM EDT documented as of this encounter Care Teams Broadcast Journalist Relationship Specialty Start Date End Date Caitlyn Bowie MD [address] [facility] 1 [place] [address] PCP - General Internal Medicine 05/06/21 [place] Kelly MD Pulmonary Department 175 [facility], [address] [place] [address] Physician Pulmonary Disease 09/06/17 06/22/20 documented as of this encounter
--- OUTSIDE RECORDS SUMMARY | 2024-09-04 17:41 | XMS_ITS | Encounter Summary ---
Author Organization [facility] and [facility] Address [address] [place] [address] Care Team Providers Care Printing Screen Assembler Name Role Phone Caitlyn Bowie MD Primary Care Provider +1- [phone] Encounter Details Date Type Department Care Team (Late st Contact Info) Description 04/08/2024 Scanned Document INTERFACE DEFAULT [address] [place] [address] System, Provider Not In Social History Tobacco [...] Description 09/30/2024 8:00 PM EDT Procedure visit [facility] [address] [place] [address] [address] [place] [address] 10/31/2024 1:00 PM EDT Telemedicine Cancer Center at [facility] [address] [facility] [address] [place] [address] Ronald Mills MD 240 [facility] [address]1 [place] [phone] documented as of this encounter Procedures Procedure [...] documented as of this encounter Care Teams Printing Screen Assembler Relationship Specialty Start Date End Date Caitlyn Bowie MD [address] [address] PCP - General Internal Medicine 05/06/21 documented as of this encounter
== END 2024-09-04 14:12 | disposition home or self-care (01) ==
LOC: HO.XRAY 14:11
PROVIDERS: PCP Internal Medicine; Visit Provider Hospitalist
DX: J44.9 Chronic obstructive pulmonary disease, unspecified (principal); J41.0 Simple chronic bronchitis
CPT/HCPCS: 71046; 93005

== ENCOUNTER → 2024-09-04 14:20 | Outpatient (BNV) | payer MEDICARE, SELFPAY | PROVIDERS: PCP Internal Medicine; Visit Provider Internal Medicine Cardiovascular Disease | DX: I45.2 Bifascicular block (principal) | CPT/HCPCS: 93010 ==

== ENCOUNTER → 2024-09-04 14:34 | Outpatient (BNV) | payer MEDICARE, SELFPAY | PROVIDERS: PCP Internal Medicine; Visit Provider Radiology Diagnostic Radiology | DX: J41.0 Simple chronic bronchitis (principal) | CPT/HCPCS: 71046 ==

== ENCOUNTER 2024-09-05 09:36 | Outpatient (AMB) | payer MEDICARE, SELFPAY ==
[2024-09-05 10:45] VITALS: PULSE 79; O2SAT 98; BMI 22.6
--- NOTE | 2024-09-05 10:45 | A.OFFVIS_ITS ---
Vital Signs 09/05/24 10:45 Height 5 ft 2 in Weight 123 lb 7.342 oz BMI 22.6 Pulse 79 Pulse Oximetry (%) 98 Oxygen Delivery Method Room Air Intake Visit Reasons: 6MW Allergies morphine Allergy (Severe, Verified 09/05/24 10:46) Itching avocado [AVOCADO] Allergy (Mild, Verified 09/05/24 10:46) ITCHY THROAT, RASH azithromycin [AZITHROMYCIN] Allergy (Mild, Verified 09/05/24 10:46) ITCHY THROAT, RASH barium iodide [BARIUM IODIDE] Allergy (Mild, Verified 09/05/24 10:46) ITCHY THROAT, RASH barium sulfate Allergy (Mild, Verified 09/05/24 10:46) Itch bee pollen [BEE STINGS] Allergy (Mild, Verified 09/05/24 10:46) ITCHY THROAT, RASH ciprofloxacin [From CIPRO] Allergy (Mild, Verified 09/05/24 10:46) ITCHY THROAT, RASH clarithromycin [From BIAXIN] Allergy (Mild, Verified 09/05/24 10:46) ITCHY THROAT, RASH diatrizoate meglumine [From GASTROGRAFIN] Allergy (Mild, Verified 09/05/24 10:46) ITCHY THROAT, RASH diatrizoate sodium [From GASTROGRAFIN] Allergy (Mild, Verified 09/05/24 10:46) ITCHY THROAT, RASH diclofenac [From VOLTAREN] Allergy (Mild, Verified 09/05/24 10:46) ITCHY THROAT, RASH erythromycin base [ERYTHROMYCIN BASE] Allergy (Mild, Verified 09/05/24 10:46) ITCHY THROAT, RASH gentamicin [GENTAMICIN] Allergy (Mild, Verified 09/05/24 10:46) ITCHY THROAT, RASH Iodinated Contrast Media [IVP DYE] Allergy (Mild, Verified 09/05/24 10:46) ITCHY THROAT, RASH levofloxacin [From LEVAQUIN] Allergy (Mild, Verified 09/05/24 10:46) ITCHY THROAT, RASH metronidazole [From FLAGYL] Allergy (Mild, Verified 09/05/24 10:46) ITCHY THROAT, RASH moxifloxacin [From AVELOX] Allergy (Mild, Verified 09/05/24 10:46) ITCHY THROAT, RASH Penicillins [PENICILLINS] Allergy (Mild, Verified 09/05/24 10:46) ITCHY THROAT, RASH shrimp [SHRIMP] Allergy (Mild, Verified 09/05/24 10:46) ITCHY THROAT, RASH Sulfa (Sulfonamide Antibiotics) [SULFA (SULFONAMIDE ANTIBIOTICS)] Allergy (Mild, Verified 09/05/24 10:46) ITCHY THROAT, RASH vancomycin [VANCOMYCIN] Allergy (Mild, Verified 09/05/24 10:46) ITCHY THROAT, RASH clindamycin Adverse Reaction (Intermediate, Verified 09/05/24 10:46) Unknown Medication List - Last Reconciled 09/05/24 by Norma Newman LPN acetaminophen 650 mg PO Q6H PRN acetylcysteine 2 mL inhalation BID 30 days Advair HFA 230-21 mcg/actuation (fluticasone propion-salmeterol) 2 puffs inhalation BID 90 days NS albuterol sulfate 90 mcg/actuation 2 inhalations inhalation Q6H PRN 90 days biotin 3 mg PO DAILY bisacodyl 10 mg [place] DAILY PRN cefuroxime axetil 500 mg PO BID chlorhexidine gluconate 0.12% 15 mL buccal BID 14 days codeine-guaifenesin 10-100 mg/5 mL 10 mL PO Q4-6H PRN CPAP (CPAP Machine/Device) As directed diazepam 5 mg PO BID PRN docusate sodium 100 mg PO DAILY epinephrine 0.3 mg IM USEASDIRECTD PRN ferrous sulfate 325 mg PO DAILY fluticasone propionate 50 mcg/actuation 2 sprays intranasal DAILY furosemide 80 mg (2 x 40 mg) PO BID guaifenesin 400 mg PO TID levalbuterol tartrate 45 mcg/actuation (Xopenex HFA) 2 puffs inhalation Q6H PRN 90 days levocetirizine 5 mg PO DAILY 90 days levothyroxine (Synthroid) 25 mcg PO MOTUWETHFR@0600 levothyroxine (Synthroid) 50 mcg PO SUSA@0600 magnesium hydroxide (Milk of Magnesia) 30 mL PO NEEDED PRN meclizine 25 mg PO Q8H PRN 10 days metoprolol succinate ER (Toprol XL) 50 mg PO BID montelukast 10 mg PO DAILY nebulizers As directed ondansetron 4 mg PO Q4H PRN oxycodone 5 mg PO Q8H PRN Oxygen Home Use As directed potassium chloride ER 40 mEq (2 x 20 mEq) PO DAILY prednisone 2.5 mg PO DAILY 90 days rosuvastatin 10 mg PO ONCE simethicone (Gas Relief (simethicone)) 80 mg PO QIDWMHS sod phos di, mono-K phos mono 250 mg (Q-Wtjl-Zzboizj) 1 tab PO BID 1 day sodium phosphates 19-7 gram/118 mL (Enema) 118 mL KY NEEDED PRN trazodone 100 mg (2 x 50 mg) PO BEDTIME warfarin (Jantoven) 1.5 mg PO DAILY@1800 [facility] Medical History (Updated 08/31/24 @ 00:00 by Anabella Dajosé manuel) Chronic hypercapnic respiratory failure KANDY treated with BiPAP COPD (chronic obstructive pulmonary disease) Open wound Warfarin anticoagulation Complex sleep apnea syndrome Leg pain Anemia Tachycardia DVT (deep venous thrombosis) Compression fracture of body of thoracic vertebra ASD (atrial septal defect) Pleuritic chest pain History of COVID-19 Chronic anticoagulation Hypothyroidism GERD (gastroesophageal reflux disease) Hyperlipidemia Hypertension Factor 5 Leiden mutation, heterozygous History of non-ST elevation myocardial infarction (NSTEMI) Hypoxia Anxiety PTSD (post-traumatic stress disorder) Hemoptysis Dyspnea Tracheobronchitis CLARA positive Diverticulitis Allergic bronchitis (HFpEF) heart failure with preserved ejection fraction Subarachnoid bleed Insomnia Anti-phospholipid antibody syndrome Hypogammaglobulinemia Chronic respiratory failure Arterial insufficiency of lower extremity Complex regional pain syndrome i of right lower limb Post herpetic neuralgia Pulmonary hypertension Pericardial effusion Pulmonary emboli Pleural effusion Radiation fibrosis of lung Pneumonitis Pulmonary nodules Lung cancer Surgical History History of colonoscopy History of lung surgery History of tonsillectomy History of hysterectomy S/P mitral valve clip implantation History of cardiac cath Family History Sister No problems noted. Mother Cardiovascular disease Daughter Tachycardia Other KANDY (obstructive sleep apnea) Social History Household Members: Other Housing: [facility] Do you presently have visiting nurse or other home services: Yes (at home had QA AUDITOR that came to visit her) Unable to assess alcohol history related to: Unknown Alcohol intake: former Comment: stand by assist with ambulation Patient Tobacco Use Status: Never used Tobacco Second Hand Smoke Exposure: No Advance Directives Date on File: 06/15/22 service: No Current occupational status: retired Physical Exam Vital Signs: Last Vital Signs Pulse 79 09/05/24 10:45 Pulse Ox 98 09/05/24 10:45 Oxygen Delivery Method Room Air 09/05/24 10:45 BMI result Body Mass Index 22.6 Office Procedures 6 Minute Walk Time:: 10:00 SPO2 % at rest: 98 Pulse at rest: 79 SPO2 % during excercise: 95 Pulse during excercise: 113 SPO2 % after excercise: 95 Pulse after excercise: 93 Distance in yards walked: 250 Willy Score: 2 Performance Observations:: Jovana walked on level ground without assistance, she walked on room air the entire walk maintaining her SPO2 95-96%, no supplemental O2 needed. [id number] - 6 Minute Walk Assessment & Plan Assessment & Plan (1) COPD (chronic obstructive pulmonary disease): Code(s): J44.9 - Chronic obstructive pulmonary disease, unspecified Category: Medical Qualifiers: COPD type: chronic bronchitis Chronic bronchitis type: simple Qualified Code(s): J41.0 - Simple chronic bronchitis Plan: 6MWT Orders: Orders AMB 6 minute walk Today J41.0 - Simple chronic bronchitis Coding Level of Care Code Established Pt Est Pt Level 1 (11112) Patient Type Established Diagnoses Simple chronic bronchitis J41.0 COPD type: chronic bronchitis Chronic bronchitis type: simple CPT Codes Coding ([id number]) Comment NURSE VISIT ONLY
[2024-09-05 10:48] VITALS: PULSE 79; O2SAT 98
--- OUTSIDE RECORDS SUMMARY | 2024-09-05 10:50 | XMS_ITS | Encounter Summary ---
Author Organization [facility] and [facility] Address [address] [place] [address] Care Team Providers Care Campaign Analyst Name Role Phone Caitlyn Bowie MD Primary Care Provider +1- [phone] Encounter Details Date Type Department Care Team (Late st Contact Info) Description 02/20/2017 Scanned Document [facility] Health Information Management [address] [place] [address] External, Provider Social History Tobacco Use Types [...] Description 09/30/2024 8:00 PM EDT Procedure visit [facility] [address] [place] [address] [address] [place] [address] 10/31/2024 1:00 PM EDT Telemedicine Cancer Center at [facility] 240 [facility] [address] [place], [place] [address] Ronald Mills MD 240 [facility] [address]1 [place] [phone] documented as of this encounter Procedures Procedure [...] documented as of this encounter Care Teams Campaign Analyst Relationship Specialty Start Date End Date Caitlyn Bowie MD 3400 [facility] 1 [place] [address] PCP - General Internal Medicine 05/06/21 [place] Kelly MD Pulmonary Department 175 [facility], [address] [place] [address] Physician Pulmonary Disease 09/06/17 06/22/20 documented as of this encounter
--- OUTSIDE RECORDS SUMMARY | 2024-09-05 10:50 | XMS_ITS | Encounter Summary ---
Author Organization [facility] and [facility] Address [address] [place] [address] Care Team Providers Care Fitter / Welder Name Role Phone Caitlyn Bowie MD Primary Care Provider +1- [phone] Encounter Details Date Type Department Care Team (Late st Contact Info) Description 02/02/2017 Scanned Document [facility] Health Information Management [address] [place] [address] External, Provider Social History Tobacco Use Types [...] Description 09/30/2024 8:00 PM EDT Procedure visit [facility] [address] [place] [address] [address] [place] [address] 10/31/2024 1:00 PM EDT Telemedicine [facility] [address] [facility] [address] [place], [place] [address] Ronald Mills MD 240 [facility] [address]1 [place] [phone] documented as of this encounter Visit Diagnoses Not on filedocumented in this encounter Additional Health Concerns Infection Onset Date Last Indicated Resolved Time COVID-19 03/05/2022 03/05/2022 03/15/2022 7:18 PM EDT documented as of this encounter Care Teams Fitter / Welder Relationship Specialty Start Date End Date Caitlyn Bowie MD 3400 [facility] [address] 1 [place] [address] PCP - General Internal Medicine 05/06/21 [place] Kelly MD Pulmonary Department 175 [facility], [address] [place] [address] Physician Pulmonary Disease 09/06/17 06/22/20 documented as of this encounter
--- OUTSIDE RECORDS SUMMARY | 2024-09-05 10:50 | XMS_ITS | Encounter Summary ---
Author Organization [facility] Address [address] [place] [address] Care Team Providers Care Shadowgraph Operator Name Role Phone Victorino Martin MD Primary Care Provider Sharon Odonnell Primary Care Provider Brennan Castro MD Primary Care Provider Unavailab Hayden Montes MD Unavailable [phone] Pallavi Flood NP Unavailable [phone]- [phone] Caitlyn Bowie MD Primary Care Provider Johnathon shaver Encounter Details Date Type Department Care Team Description 06/21/2018 Orders Only Pulmonology - [address] [place] [address] [place] Kelly MD Social History [...] on filedocumented in this encounter Care Teams Shadowgraph Operator Relationship Specialty Start Date End Date Victorino Martin MD PCP - General Internal Medicine 12/21/17 08/01/18 Sharon Vides PCP - General Internal Medicine 08/02/18 05/26/20 Brennan Burnett MD PCP - General Internal Medicine 05/27/20 12/07/21 Caitlyn Bowie MD [address] [place] [address] PCP - General Internal Medicine 12/08/21 Hayden Shah MD [address] [place], [place] [phone] Specialist Cardiovascular Disease 09/01/20 Pallavi Flood NP [address] [place] [address] Cardiology 09/01/20 documented as of this encounter
--- OUTSIDE RECORDS SUMMARY | 2024-09-05 10:50 | XMS_ITS | Encounter Summary ---
Author Organization [facility] Address [address] [place] [address] Care Team Providers Care Catering Convention Services Manager Name Role Phone Victorino Martin MD Primary Care Provider UnavailSharon Kimbrough Primary Care Provider Unava ilable Brennan Burnett MD Primary Care Provider Unavailab Hayden Montes MD Unavailable [phone] Pallavi Flood NP Unavailable [phone]- [phone] Caitlyn Bowie MD Primary Care Provider Unava ilable Reason for Visit * Reason Onset Date Comments TEST RESULTS 06/14/2018 Call From Lab 06/14/2018 Encounter Details Date Type Department Care Team Description 06/14/2018 Telephone Pulmonology - [place] [address] [facility] [address] [place] [address] Andre Benites PA-C [address] [facility] [address] [place] [address] TEST RESULTS; Call From Lab [...] on filedocumented in this encounter Care Teams Catering Convention Services Manager Relationship Specialty Start Date End Date Victorino Martin MD PCP - General Internal Medicine 12/21/17 08/01/18 Sharon Vides PCP - General Internal Medicine 08/02/18 05/26/20 Brennan Burnett MD PCP - General Internal Medicine 05/27/20 12/07/21 Caitlyn Bowie MD [address] [place] [address] PCP - General Internal Medicine 12/08/21 Hayden Shah MD [address] [place] [address] Specialist Cardiovascular Disease 09/01/20 Pallavi Flood NP [address] [place] [address] Cardiology 09/01/20 documented as of this encounter
--- OUTSIDE RECORDS SUMMARY | 2024-09-05 10:50 | XMS_ITS | Encounter Summary ---
Author Organization [facility] Address [address] [place] [address] Care Team Providers Care Grades 9 12 Tutor Name Role Phone Victorino Martin MD Primary Care Provider Sharon Odonnell Primary Care Provider Brennan Castro MD Primary Care Provider UnavailHayden Fernandez MD Unavailable [phone] Pallavi Flood NP Unavailable [phone] Caitlyn Bowie MD Primary Care Provider Johnathon shaver Encounter Details Date Type Department Care Team Description 06/27/2018 Box Lidder Report Medical Records [address] [place] [address] Mick Newsome MD Social History Tobacco Use [...] on filedocumented in this encounter Care Teams Grades 9 12 Tutor Relationship Specialty Start Date End Date Victorino Martin MD PCP - General Internal Medicine 12/21/17 08/01/18 Sharon Vides PCP - General Internal Medicine 08/02/18 05/26/20 Brennan Burnett MD PCP - General Internal Medicine 05/27/20 12/07/21 Caitlyn [address] MD [address] [place] [address] PCP - General Internal Medicine 12/08/21 Hayden Shah MD [address] [place] [address] [phone] Specialist Cardiovascular Disease 09/01/20 Pallavi Flood NP [address] [place] [address] [id number] Cardiology 09/01/20 documented as of this encounter
--- OUTSIDE RECORDS SUMMARY | 2024-09-05 10:50 | XMS_ITS | Encounter Summary ---
Author Organization [facility] and [facility] Address [address] [place] [address] Care Team Providers Care Medicine And Health Service Manager Name Role Phone Caitlyn Bowie MD Primary Care Provider [phone]- [phone] Encounter Details Date Type Department Care Team (Late st Contact Info) Description 07/08/2020 Scanned Document [facility] Health Information Management [address] [place] [address] External, Provider Social History Tobacco Use Types [...] Description 09/30/2024 8:00 PM EDT Procedure visit [facility] [address] [place] [address] [address] [place] [address] 10/31/2024 1:00 PM EDT Telemedicine Cancer Center at [facility] 240 [facility] [address] [place] [address] Ronald Mills MD 240 [facility] [address]1 [place] [address] documented as of this encounter Procedures Procedure [...] documented as of this encounter Care Teams Medicine And Health Service Manager Relationship Specialty Start Date End Date Caitlyn Bowie MD [address] [address] PCP - General Internal Medicine 05/06/21 documented as of this encounter
--- OUTSIDE RECORDS SUMMARY | 2024-09-05 10:50 | XMS_ITS | Encounter Summary ---
Author Organization [facility] and [facility] Address [address] [place] [address] Care Team Providers Care Public Events Facilities Rental Manager Name Role Phone Caitlyn Bowie MD Primary Care Provider [phone]- [phone] Encounter Details Date Type Department Care Team (Late st Contact Info) Description 05/14/2020 Documentation Hematology Program at [address] [address] Taya Nuno RN Social History Tobacco Use [...] Description 09/30/2024 8:00 PM EDT Procedure visit [facility] [address] [place] [address] [address] [place] [address] 10/31/2024 1:00 PM EDT Telemedicine Cancer Center at [address] [place] [address] Ronald Mills MD [address] [place] [address] documented as of this encounter Visit Diagnoses Not on filedocumented in this encounter Additional Health Concerns Infection Onset Date Last Indicated Resolved Time COVID-19 03/05/2022 03/05/2022 03/15/2022 7:18 PM EDT Assessment Noted Time PHQ-9 Depression Total Score: 2 11/07/19 19 2:06 PM EDT documented as of this encounter Care Teams Public Events Facilities Rental Manager Relationship Specialty Start Date End Date Caitlyn Bowie MD 3400 [facility] 1 [place] [address] PCP - General Internal Medicine 05/06/21 Henry Kelly MD Pulmonary Department [address] [place] [address], [address] [place] [address] Physician Pulmonary Disease 09/06/17 06/22/20 documented as of this encounter
--- OUTSIDE RECORDS SUMMARY | 2024-09-05 10:50 | XMS_ITS | Encounter Summary ---
Author Organization [facility] and [facility] Address [address] [place] [address] Care Team Providers Care Agriculture Teacher Name Role Phone Caitlyn Bowie MD Primary Care Provider [phone]- [phone] Encounter Details Date Type Department Care Team (Late st Contact Info) Description 02/20/2017 Scanned Document [facility] Health Information Management [address] [place] [address] External, Provider Social History Tobacco Use [...] Description 09/30/2024 8:00 PM EDT Procedure visit [facility] [address] [place] [address] [address] [place] [address] 10/31/2024 1:00 PM EDT Telemedicine Cancer Center at [facility] 240 [facility] [address] [place], [place] [address] Ronald Mills MD 240 [facility] A1 [place] [address] documented as of this encounter Procedures Procedure [...] as of this encounter Care Teams Agriculture Teacher Relationship Specialty Start Date End Date Caitlyn Bowie MD 3400 [facility] 1 [place] [address] PCP - General Internal Medicine 05/06/21 Henry Kelly MD Pulmonary Department 175 [facility], [address] [place] [address] Physician Pulmonary Disease 09/06/17 06/22/20 documented as of this encounter
--- OUTSIDE RECORDS SUMMARY | 2024-09-05 10:50 | XMS_ITS | Encounter Summary ---
Author Organization [facility] and [facility] Address [address] [place] [address] Care Team Providers Care Chief Station Engineer Name Role Phone Caitlyn Bowie MD Primary Care Provider [phone]- [phone] Encounter Details Date Type Department Care Team (Late st Contact Info) Description 05/19/2020 Scanned Document Cancer Center at [address] [address] External, Provider Social History Tobacco Use Types [...] Description 09/30/2024 8:00 PM EDT Procedure visit [facility] [address] [place] [address] [address] [place] [address] 10/31/2024 1:00 PM EDT Telemedicine Cancer Center at [address] [place] [address] Ronald Mills MD [address] [address] documented as of this encounter [...] as of this encounter Care Teams Chief Station Engineer Relationship Specialty Start Date End Date Caitlyn Bowie MD 3400 [facility] [address] 1 [place] [address] PCP - General Internal Medicine 05/06/21 Henry Kelly MD Pulmonary Department 175 [facility], [address] [place] [address] Physician Pulmonary Disease 09/06/17 06/22/20 documented as of this encounter
--- OUTSIDE RECORDS SUMMARY | 2024-09-05 10:50 | XMS_ITS | Encounter Summary ---
Author Organization [facility] Address [address] [place] [address] Care Team Providers Care Handle Finisher Name Role Phone Brennan Burnett MD Primary Care Provider [phone] Reason for Visit * Reason Onset Date [...] (Late st Contact Info) Description 08/08/2024 Telephone [facility] [address] [address] Daphne Alarcon, TECHNICAL SPECIALIST CYTOGENETICS Memory Loss (Returned pt call from 08/07 [...] Info) Description 09/09/2024 3:30 PM EST Treatment [facility] [address] [phone] Daphne Alarcon, TECHNICAL SPECIALIST CYTOGENETICS documented as of this encounter Goals Goal Patient Goal Type Associated Problems Recent Progress Patient-Stated? Author LTG General No Daphne Alarcon, TECHNICAL SPECIALIST CYTOGENETICS Note: Pt will improve cognitive linguistic function to participate and communicate in iADLs mod I ST STGs General No Daphne Alarcon, TECHNICAL SPECIALIST CYTOGENETICS Note: Pt will participate with development of [...] on filedocumented in this encounter Care Teams Handle Finisher Relationship Specialty Start Date End Date Brennan Burnett MD [address] [place] [address] PCP - General 05/06/24 documented as of this encounter
--- OUTSIDE RECORDS SUMMARY | 2024-09-05 10:51 | XMS_ITS | Encounter Summary ---
Author Organization [facility] Address [address] [place] [address] Care Team Providers Care Methods Specialist Engineer Name Role Phone Victorino Martin MD Primary Care Provider Sharon Odonnell Primary Care Provider Brennan Castro MD Primary Care Provider Unavailab Hayden Montes MD Unavailable [phone] Pallavi Flood NP Unavailable [phone] Caitlyn Bowie MD Primary Care Provider Johnathon shaver Encounter Details Date Type Department Care Team Description 07/12/2018 Orders Only Pulmonology - [address] [place] [address] Henry Kelly MD Social History [...] on filedocumented in this encounter Care Teams Methods Specialist Engineer Relationship Specialty Start Date End Date Victorino Martin MD PCP - General Internal Medicine 12/21/17 08/01/18 Sharon Vides PCP - General Internal Medicine 08/02/18 05/26/20 Brennan Burnett MD PCP - General Internal Medicine 05/27/20 12/07/21 Caitlyn Bowie MD [address] [place] [address] PCP - General Internal Medicine 12/08/21 Hayden Shah MD [address] [place], [place] [address] Specialist Cardiovascular Disease 09/01/20 Pallavi Flood NP [address] [place] [address] Cardiology 09/01/20 documented as of this encounter
--- OUTSIDE RECORDS SUMMARY | 2024-09-05 10:51 | XMS_ITS | Encounter Summary ---
Author Organization [facility] Address [address] [place] [address] Care Team Providers Care Business Development Executive Name Role Phone Victorino Martin MD Primary Care Provider Sharon Odonnell Primary Care Provider Brennan Castro MD Primary Care Provider Unavailab Hayden Montes MD Unavailable [phone] Pallavi Flood NP Unavailable [phone] Caitlyn Bowie MD Primary Care Provider Johnathon shaver Encounter Details Date Type Department Care Team Description 07/04/2018 Refill Pulmonology - [address] [place] [address] Henry Kelly MD Social History [...] Preferred pharmacy: [facility] Comment: documented in this encounter Plan of Treatment Not on file documented as of this encounter Visit Diagnoses Not on filedocumented in this encounter Care Teams Business Development Executive Relationship Specialty Start Date End Date Victorino Martin MD PCP - General Internal Medicine 12/21/17 08/01/18 Sharon Vides PCP - General Internal Medicine 08/02/18 05/26/20 Brnenan Burnett MD PCP - General Internal Medicine 05/27/20 12/07/21 Caitlyn Bowie MD [address] [place] [address] PCP - General Internal Medicine 12/08/21 Hayden Shah MD [address] [place] [address] Specialist Cardiovascular Disease 09/01/20 Pallavi Flood NP [address] [place] [address] Cardiology 09/01/20 documented as of this encounter
--- OUTSIDE RECORDS SUMMARY | 2024-09-05 10:51 | XMS_ITS | Patient Health Record ---
Author Organization [facility] Address [address] [place] [address] Care Team Providers Care Returns Supervisor Name Role Phone Shruti Bowieberly Primary Care Provider Cristian Fountain Unavailable [phone] ALLERGIES Allergen (clinical drug ingredient) Drug/Non Drug Allergy documented on EMR Reaction Allergy Type Onset Date Status metronidazole Flagyl Unknown Drug Allergy Act esmer ciprofloxacin Cipro Unknown Drug Allergy Act esmer Biaxin Unknown Drug Allergy Active moxifloxacin Avelox Unknown Drug Allergy Acti ve ipitromium bromide (uncoded) Unknown Allergy Active Avocado Avocado Unknown Allergy Active some muscle relaxers (uncoded) Unknown Allergy Active vancomycin Vancomycin Unknown Drug Allergy Activ e novacain (uncoded) Unknown Allergy A ctive Penicillin Unknown Drug Allergy Active gentamicin gentomycin (uncoded) Unknown Allergy Active erythromycin Erythromycin Unknown Drug Allergy [...] Active Gastrografin Unknown Drug Allergy Acti ve REASON FOR REFERRAL No Information MEDICATIONS Medication [...] Notes Problem Diverticulitis (K57.92) Active confirmed Diverticulitis (247097420) Problem Irritable bowel syndrome with constipation (K58.9) Active confirmed Irritable bowel syndrome characterized by constipation (938669158) Problem GERD (gastroesophageal reflux disease) (K21.9) Active confirmed Gastroesophagea l reflux disease (662175924) PLAN OF TREATMENT No Information Insurance Providers Payer Name Payer Address Payer Phone Subscriber Number Group Number Insured Name Patient Relationship to Insured Coverage Start Date Coverage End Date MEDICARE OF [place] [address] [place] [address] [id number] SHIRLEY CINDA Self - patient is the insured [employer] ATTN CLAIMS [address] [place] [address] [id number] DANIEL WATSONE Self - patient is the [...] a nd 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 Hogan at [facility] GERD-has had EGD's with Dr. Gomes Pneumomias Hypothyroidism Surgical History Surgery Date(Month/Year) Tonsils and adenoids [facility] Lung cancer-[facility], [facility], Chemo 2008
--- OUTSIDE RECORDS SUMMARY | 2024-09-05 10:51 | XMS_ITS | Encounter Summary ---
Author Organization [facility] Address [address] [place] [address] Care Team Providers Care Trim And Burr Operator Name Role Phone Caitlyn Bowie MD Primary Care Provider [phone]- [phone] Encounter Details Date Type Department Care Team (Late st Contact Info) Description 12/19/2016 Scanned Document [facility] Health Information Management [address] [place] [address] External, Provider Social History Tobacco Use Types [...] Procedure visit [facility] [address] [place] [address] [address] [place] [address] 10/31/2024 1:00 PM EDT Telemedicine Cancer Center at [facility] 240 [facility] [address] [place], [place] [address] Ronald Mills MD 240 [facility] A1 [place] [address] documented as of this encounter Procedures Procedure [...] as of this encounter Care Teams Trim And Burr Operator Relationship Specialty Start Date End Date Caitlyn Bowie MD [address] [facility] [address] [facility] [address] PCP - General Internal Medicine 05/06/21 Henry Kelly MD Pulmonary Department 175 [facility], [address] [address] Physician Pulmonary Disease 09/06/17 06/22/20 documented as of this encounter
--- OUTSIDE RECORDS SUMMARY | 2024-09-05 10:51 | XMS_ITS | Encounter Summary ---
Author Organization [facility] and [facility] Address [address] [place] [address] Care Team Providers Care Casing Tester Name Role Phone Caitlyn Bowie MD Primary Care Provider [phone]- [phone] Encounter Details Date Type Department Care Team (Late st Contact Info) Description 12/16/2016 Scanned Document [facility] Health Information Management [address] [place] [address] External, Provider Social History Tobacco Use Types [...] EDT Procedure visit [facility] [address] [place] [address] [address] [place] [address] 10/31/2024 1:00 PM EDT Telemedicine Cancer [facility] at [facility] 240 [facility] Building [address] [place], [place] [address] Ronald Mills MD 240 [facility] A1 [place] [address] documented as of this encounter Procedures Procedure [...] as of this encounter Care Teams Casing Tester Relationship Specialty Start Date End Date Caitlyn Bowie MD [address] [facility] 1 [place] [address] PCP - General Internal Medicine 05/06/21 Henry Kelly MD Pulmonary Department 175 [facility], [address] [place] [address] Physician Pulmonary Disease 09/06/17 06/22/20 documented as of this encounter
--- OUTSIDE RECORDS SUMMARY | 2024-09-05 10:51 | XMS_ITS | Encounter Summary ---
Author Organization [facility] and [facility] Address [address] [place] [address] Care Team Providers Care Research Chemical Engineer Name Role Phone Caitlyn Bowie MD Primary Care Provider [phone]- [phone] Encounter Details Date Type Department Care Team (Late Contact Info) Description 09/09/2020 Scanned Document [facility] Health Information Management [address] [place] [address] External, Provider Social History Tobacco Use Types [...] Description 09/30/2024 8:00 PM EDT Procedure visit [facility] [address] [place] [address] [address] [place] [address] 10/31/2024 1:00 PM EDT Telemedicine Cancer Center at [address] [place] [address] Ronald Mills MD 240 [facility] A1 [place] [address] documented as of this encounter [...] as of this encounter Care Teams Research Chemical Engineer Relationship Specialty Start Date End Date Caitlyn Bowie MD [address] [address] PCP - General Internal Medicine 05/06/21 documented as of this encounter
--- OUTSIDE RECORDS SUMMARY | 2024-09-05 10:51 | XMS_ITS | Encounter Summary ---
Author Organization [facility] Address [address] [place] [address] Care Team Providers Care Wardrobe Custodian Name Role Phone Caitlyn Bowie MD Primary Care Provider +1- [phone] Encounter Details Date Type Department Care Team (Late st Contact Info) Description 12/03/2019 Scanned Document [facility] Health Information Management [address] [place] [address] External, Provider Social History Tobacco Use Types [...] Description 09/30/2024 8:00 PM EDT Procedure visit [facility] [address] [place] [address] [address] [place] [address] 10/31/2024 1:00 PM EDT Telemedicine Cancer [facility] at [facility] 240 [facility] [address] [place] [address] Ronald Mills MD 240 [facility] [address]1 [place] [address] documented as of this encounter Visit Diagnoses Not on filedocumented in this encounter Additional Health Concerns Infection Onset Date Last Indicated Resolved Time COVID-19 03/05/2022 03/05/2022 03/15/2022 7:18 PM EDT Assessment Noted Time PHQ-9 Depression Total Score: 2 11/07/19 19 2:06 PM EDT documented as of this encounter Care Teams Wardrobe Custodian Relationship Specialty Start Date End Date Caitlyn Bowie MD 3400 [facility] 1 [place] [address] PCP - General Internal Medicine 05/06/21 Henry Kelly MD Pulmonary Department [address] [place] [address], [address] [place] [address] Physician Pulmonary Disease 09/06/17 06/22/20 documented as of this encounter
--- OUTSIDE RECORDS SUMMARY | 2024-09-05 10:51 | XMS_ITS | Encounter Summary ---
Author Organization [facility] and [facility] Address [address] [place] [address] Care Team Providers Care Retail Department Manager Name Role Phone Caitlyn Bowie MD Primary Care Provider +1- [phone] Encounter Details Date Type Department Care Team (Late st Contact Info) Description 09/15/2020 Scanned Document [facility] DEFAULT [address] [place] [address] System, Provider Not In Social History Tobacco [...] 09/30/2024 8:00 PM EDT Procedure visit [facility] [address] [place] [address] [address] [place] [address] 10/31/2024 1:00 PM EDT Telemedicine [facility] at [facility] 240 [facility] [address] [place] [address] Ronald Mills MD 240 [facility] A1 [place] [address] documented as of this encounter Visit Diagnoses Not on filedocumented in this encounter Additional Health Concerns Infection Onset Date Last Indicated Resolved Time COVID-19 03/05/2022 03/05/2022 03/15/2022 7:18 PM EDT Assessment Noted Time PHQ-9 Depression Total Score: 2 11/07/19 19 2:06 PM EDT documented as of this encounter Care Teams Retail Department Manager Relationship Specialty Start Date End Date Caitlyn Bowie MD [address] [address] PCP - General Internal Medicine 05/06/21 documented as of this encounter
--- OUTSIDE RECORDS SUMMARY | 2024-09-05 10:51 | XMS_ITS | Clinical Summary ---
Author Organization [facility] Address [address] [place] [address] Care Team Providers Care Supervisor Microwave Name Role Phone Brennan Burnett MD Primary Care Provider [phone] Allergies Active Allergy Reactions Criticality Noted Date [...] age to complete this topic Care Teams Supervisor Microwave Relationship Specialty Start Date End Date Brennan Burnett MD [address] [place] [address] PCP - General Internal Medicine 07/06/20
--- OUTSIDE RECORDS SUMMARY | 2024-09-05 10:51 | XMS_ITS | Encounter Summary ---
Author Organization [facility] and [facility] Address [address] [place] [address] Care Team Providers Care Job Hand Name Role Phone Caitlyn Bowie MD Primary Care Provider +1- [phone] Encounter Details Date Type Department Care Team (Latest Contact Info) Description 04/15/2013 Transcribed Orders [facility] [address] [place] [address] Tian Atwood MD [address] [facility] 102 [place] [address] Unspecified hypothyroidism (Primary Dx) Social [...] Description 09/30/2024 8:00 PM EDT Procedure visit [facility] [address] [place] [address] [address] [place] [address] 10/31/2024 1:00 PM EDT Telemedicine Cancer Center at [facility] 240 [facility] Building [address] [place], [place] [address] Ronald Mills MD 240 [facility] [address] [place] [address] documented as of this encounter Results * Copper, serum total (YH) (04/15/2013 4:31 PM EDT) Copper, Serum Total SEE BELOW [facility] Comment: Test ?Result ? Flag ??Unit ?RefValue Copper, S ? 1.35 ? mcg/mL ??0.75-1.45 04/15/2013 4:31 PM EDT us Tian Atwood MD LAB BLOOD ORDERABLES Final R esult [facility] [address] [place] [address] documented in this encounter Visit Diagnoses Diagnosis Unspecified hypothyroidism- Primary documented in this encounter Additional Health Concerns Infection Onset Date Last Indicated Resolved Time COVID-19 03/05/2022 03/05/2022 03/15/2022 7:18 PM EDT documented as of this encounter Care Teams Job Hand Relationship Specialty Start Date End Date Caitlyn Bowie MD 1109 [facility] 1 [place] [address] PCP - General Internal Medicine 05/06/21 Henry Kelly MD Pulmonary Department 175 [facility], [address] [place], [place] [address] Physician Pulmonary Disease 09/06/17 06/22/20 documented as of this encounter
--- OUTSIDE RECORDS SUMMARY | 2024-09-05 10:51 | XMS_ITS | Encounter Summary ---
Author Organization [facility] and [facility] Address [address] [place] [address] Care Team Providers Care Production Line Manager Name Role Phone Caitlyn Bowie MD Primary Care Provider +1- [phone] Encounter Details Date Type Department Care Team (Late st Contact Info) Description 12/16/2016 Scanned Document [facility] Health Information Management [address] [place] [address] External, Provider Social History Tobacco Use Types [...] Procedure visit [facility] [address] [place] [address] [address] [place] [address] 10/31/2024 1:00 PM EDT Telemedicine Cancer Center at [facility] 240 [facility] Building [address] [place], [place] [address] Ronald Mills MD 240 [facility] A1 [place] [address] documented as of this encounter Visit Diagnoses Not on filedocumented in this encounter Additional Health Concerns Infection Onset Date Last Indicated Resolved Time COVID-19 03/05/2022 03/05/2022 03/15/2022 7:18 PM EDT documented as of this encounter Care Teams Production Line Manager Relationship Specialty Start Date End Date Caitlyn Bowie MD 3400 [facility] [address] 1 [place] [address] PCP - General Internal Medicine 05/06/21 Henry Kelly MD Pulmonary Department 175 [facility], [address] [place] [address] Physician Pulmonary Disease 09/06/17 06/22/20 documented as of this encounter
--- OUTSIDE RECORDS SUMMARY | 2024-09-05 10:51 | XMS_ITS | Encounter Summary ---
Author Organization [facility] and [facility] Address [address] [place] [address] Care Team Providers Care Impregnator Name Role Phone Caitlyn Bowie MD Primary Care Provider +1- [phone] Encounter Details Date Type Department Care Team (Late st Contact Info) Description 12/16/2016 Scanned Document [facility] Health Information Management [address] [place] [address] External, Provider Social History Tobacco Use Types [...] Description 09/30/2024 8:00 PM EDT Procedure visit [facility] [address] [place] [address] [address] [place] [address] 10/31/2024 1:00 PM EDT Telemedicine [facility] at [facility] 240 [facility] Building [address] [place], [place] [address] Ronald Mills MD 240 [employer] [facility] [employer] [address] [place] [address] documented as of this encounter Procedures Procedure [...] documented as of this encounter Care Teams Impregnator Relationship Specialty Start Date End Date Caitlyn Bowie MD 3400 [facility] Max 1 [place] [address] PCP - General Internal Medicine 05/06/21 Henry Kelly MD Pulmonary Department 175 [facility], [address] [place] [address] Physician Pulmonary Disease 09/06/17 06/22/20 documented as of this encounter
--- OUTSIDE RECORDS SUMMARY | 2024-09-05 10:51 | XMS_ITS | Encounter Summary ---
Author Organization [facility] and [facility] Address [address] [place] [address] Care Team Providers Care Service Coordinator Elderly Facility Name Role Phone Caitlyn Bowie MD Primary Care Provider +1- [phone] Encounter Details Date Type Department Care Team (Late st Contact Info) Description 12/16/2016 Scanned Document [facility] Health Information Management [address] [place] [address] External, Provider Social History Tobacco Use Types [...] Description 09/30/2024 8:00 PM EDT Procedure visit [facility] [address] [place] [address] [address] [place] [address] 10/31/2024 1:00 PM EDT Telemedicine Cancer [facility] at [facility] 240 [facility] Building [address] [place], [place] [address] Ronald Mills MD 240 [facility] A1 [place] [address] documented as of this encounter Procedures Procedure [...] as of this encounter Care Teams Service Coordinator Elderly Facility Relationship Specialty Start Date End Date Caitlyn Bowie MD 3400 [facility] 1 [place] [address] PCP - General Internal Medicine 05/06/21 Henry Kelly MD Pulmonary Department 175 [facility], [address] [place] [address] Physician Pulmonary Disease 09/06/17 06/22/20 documented as of this encounter
--- OUTSIDE RECORDS SUMMARY | 2024-09-05 10:51 | XMS_ITS | Encounter Summary ---
Author Organization [facility] and [facility] Address [address] [place] [address] Care Team Providers Care Qc Chemist Name Role Phone Caitlyn Bowie MD Primary Care Provider +1- [phone] Encounter Details Date Type Department Care Team (Late st Contact Info) Description 12/16/2016 Scanned Document [facility] Health Information Management [address] [place] [address] External, Provider Social History Tobacco Use Types [...] Description 09/30/2024 8:00 PM EDT Procedure visit [facility] [address] [place] [address] [address] [place] [address] 10/31/2024 1:00 PM EDT Telemedicine Cancer Center at [facility] 240 [facility] Building [address] [place], [place] [address] Ronald Mills MD 240 [facility] A1 [place] [address] documented as of this encounter Procedures Procedure [...] documented as of this encounter Care Teams Qc Chemist Relationship Specialty Start Date End Date Caitlyn Bowie MD 3400 [facility] 1 [place] [address] PCP - General Internal Medicine 05/06/21 Henry Kelly MD Pulmonary Department 175 [facility], [address] [place] [address] Physician Pulmonary Disease 09/06/17 06/22/20 documented as of this encounter
--- OUTSIDE RECORDS SUMMARY | 2024-09-05 10:51 | XMS_ITS | Encounter Summary ---
Author Organization [facility] and [facility] Address [address] [place] [address] Care Team Providers Care Air Twister Winder Name Role Phone Caitlyn Bowie MD Primary Care Provider +1- [phone] Encounter Details Date Type Department Care Team (Late st Contact Info) Description 09/16/2020 Scanned Document [facility] Health Information Management [address] [place] [address] External, Provider Social History Tobacco Use Types [...] EDT Procedure visit [facility] [address] [place] [address] [address] [place] [address] 10/31/2024 1:00 PM EDT Telemedicine Cancer Center at [address] [place] [address] Ronald Mills MD 240 [facility] A1 [place] [address] documented as of [...] as of this encounter Care Teams Air Twister Winder Relationship Specialty Start Date End Date Caitlyn Bowie MD [address] [address] PCP - General Internal Medicine 05/06/21 documented as of this encounter
--- OUTSIDE RECORDS SUMMARY | 2024-09-05 10:51 | XMS_ITS | Encounter Summary ---
Author Organization [facility] Address 20 [place] [address] Care Team Providers Care Merchandising Specialist Name Role Phone Caitlyn Bowie MD Primary Care Provider +1- [phone] Encounter Details Date Type Department Care Team (Late st Contact Info) Description 11/26/2019 Scanned Document Cancer Center at [address] [address] External, Provider Social History Tobacco Use Types [...] Description 09/30/2024 8:00 PM EDT Procedure visit [facility] [address] [place] [address] [address] [place] [address] 10/31/2024 1:00 PM EDT Telemedicine Cancer Center at [address] [place] [address] Ronald Mills MD [address] [address] documented as of this encounter [...] documented as of this encounter Care Teams Merchandising Specialist Relationship Specialty Start Date End Date Caitlyn Bowie MD 3400 [facility] Max 1 [place] [address] PCP - General Internal Medicine 05/06/21 Henry Kelly MD Pulmonary Department [address] [place] [address], [address] [place] [address] Physician Pulmonary Disease 09/06/17 06/22/20 documented as of this encounter
--- OUTSIDE RECORDS SUMMARY | 2024-09-05 10:51 | XMS_ITS | Encounter Summary ---
Author Organization [facility] and [facility] Address [address] [place] [address] Care Team Providers Care Superintendent Transmission Name Role Phone Caitlyn Bowie MD Primary Care Provider +1- [phone] Encounter Details Date Type Department Care Team (Late Contact Info) Description 09/18/2020 Scanned Document [facility] Health Information Management [address] [place] [address] External, Provider Social History Tobacco Use Types [...] 09/30/2024 8:00 PM EDT Procedure visit [facility] [address] [place] [address] [address] [place] [address] 10/31/2024 1:00 PM EDT Telemedicine Cancer Center at [facility] 240 [facility] [address] [place] [address] Ronald Mills MD 240 [facility] A1 [place] [address] documented as of this encounter [...] as of this encounter Care Teams Superintendent Transmission Relationship Specialty Start Date End Date Caitlyn Bowie MD [address] [address] PCP - General Internal Medicine 05/06/21 documented as of this encounter
--- OUTSIDE RECORDS SUMMARY | 2024-09-05 10:51 | XMS_ITS | Encounter Summary ---
Author Organization [facility] and [facility] Address [address] [place] [address] Care Team Providers Care Stencil Inspector Name Role Phone Caitlyn Bowie MD Primary Care Provider +1- [phone] Encounter Details Date Type Department Care Team (Late Contact Info) Description 09/15/2020 Scanned Document [facility] Health Information Management [address] [place] [address] External, Provider Social History Tobacco Use Types [...] 09/30/2024 8:00 PM EDT Procedure visit [facility] [address] [place] [address] [address] [place] [address] 10/31/2024 1:00 PM EDT Telemedicine Cancer Center at [address] [place] [address] Ronald Mills MD 240 [facility] A1 [place] [address] documented as of this encounter [...] documented as of this encounter Care Teams Stencil Inspector Relationship Specialty Start Date End Date Caitlyn Bowie MD [address] [address] PCP - General Internal Medicine 05/06/21 documented as of this encounter
--- OUTSIDE RECORDS SUMMARY | 2024-09-05 10:51 | XMS_ITS | Encounter Summary ---
Author Organization [facility] and [facility] Address 20 [place] [address] Care Team Providers Care Information Technology Project Manager Name Role Phone Caitlyn Bowie MD Primary Care Provider +1- [phone] Encounter Details Date Type Department Care Team (Late st Contact Info) Description 09/15/2020 Scanned Document Cancer Center at [address] [address] External, Provider Social History Tobacco Use Types [...] Description 09/30/2024 8:00 PM EDT Procedure visit [facility] [address] [place] [address] [place] [address] 10/31/2024 1:00 PM EDT Telemedicine Cancer Center at [address] [place], [place] [address] Ronald Mills MD [address] [address] documented as of this encounter [...] as of this encounter Care Teams Information Technology Project Manager Relationship Specialty Start Date End Date Caitlyn Bowie MD [address] [address] PCP - General Internal Medicine 05/06/21 documented as of this encounter
--- OUTSIDE RECORDS SUMMARY | 2024-09-05 10:51 | XMS_ITS | Encounter Summary ---
Author Organization [facility] and [facility] Address [address] [place] [address] Care Team Providers Care Helpdesk Technician Name Role Phone Caitlyn Bowie MD Primary Care Provider +1- [phone] Encounter Details Date Type Department Care Team (Late st Contact Info) Description 09/16/2020 Scanned Document [facility] Health Information Management [address] [place] [address] External, Provider Social History Tobacco Use Types [...] Description 09/30/2024 8:00 PM EDT Procedure visit [facility] [address] [place] [address] [address] [place] [address] 10/31/2024 1:00 PM EDT Telemedicine Cancer Center at [address] [place] [address] Ronald Mills MD 240 [facility] A1 [place] [address] documented as of this encounter [...] documented as of this encounter Care Teams Helpdesk Technician Relationship Specialty Start Date End Date Caitlyn Bowie MD [address] [address] PCP - General Internal Medicine 05/06/21 documented as of this encounter
--- OUTSIDE RECORDS SUMMARY | 2024-09-05 10:51 | XMS_ITS | Encounter Summary ---
Author Organization [facility] and [facility] Address [address] [place] [address] Care Team Providers Care Packaging Operator Name Role Phone Caitlyn Bowie MD Primary Care Provider +1- [phone] Encounter Details Date Type Department Care Team (Late Contact Info) Description 09/17/2020 Scanned Document [facility] Health Information Management [address] [place] [address] External, Provider Social History Tobacco Use Types [...] Description 09/30/2024 8:00 PM EDT Procedure visit [facility] [address] [place] [address] [address] [place] [address] 10/31/2024 1:00 PM EDT Telemedicine Cancer Center at [address] [place] [address] Ronald Mills MD 240 [facility] A1 [place] [address] documented as of this encounter [...] documented as of this encounter Care Teams Packaging Operator Relationship Specialty Start Date End Date Caitlyn Bowie MD [address] [address] PCP - General Internal Medicine 05/06/21 documented as of this encounter
--- OUTSIDE RECORDS SUMMARY | 2024-09-05 10:51 | XMS_ITS | Encounter Summary ---
Author Organization [facility] and [facility] Address [address] [place] [address] Care Team Providers Care Senior Sourcing Manager Name Role Phone Caitlyn Bowie MD Primary Care Provider +1- [phone] Encounter Details Date Type Department Care Team (Late st Contact Info) Description 11/29/2019 Scanned Document [facility] Health Information Management [address] [place] [address] External, Provider Social History Tobacco Use Types [...] Description 09/30/2024 8:00 PM EDT Procedure visit [facility] [address] [place] [address] [address] [place] [address] 10/31/2024 1:00 PM EDT Telemedicine Cancer Center at [facility] 240 [facility] [address] [place] [address] Ronald Mills MD 240 [facility] A1 [place] [address] documented as of this encounter Procedures Procedure [...] as of this encounter Care Teams Senior Sourcing Manager Relationship Specialty Start Date End Date Caitlyn Bowie MD 3400 [facility] 1 [place] [address] PCP - General Internal Medicine 05/06/21 Henry Kelly MD Pulmonary Department 175 [facility], [address] [place] [address] Physician Pulmonary Disease 09/06/17 06/22/20 documented as of this encounter
--- OUTSIDE RECORDS SUMMARY | 2024-09-05 10:51 | XMS_ITS | Encounter Summary ---
Author Organization [facility] and [facility] Address [address] [place] [address] Care Team Providers Care Carpet Cleaner Name Role Phone Caitlyn Bowie MD Primary Care Provider +1- [phone] Encounter Details Date Type Department Care Team (Late st Contact Info) Description 04/18/2013 Documentation Hematology Program at [address] [address] Isis Ragland RN Social History Tobacco Use [...] Description 09/30/2024 8:00 PM EDT Procedure visit [facility] [address] [place] [address] [address] [place] [address] 10/31/2024 1:00 PM EDT Telemedicine Cancer Center at [address] [place], [place] [address] Ronald Mills MD [address] [place] [address] documented as of this encounter Visit Diagnoses Not on filedocumented in this encounter Additional Health Concerns Infection Onset Date Last Indicated Resolved Time COVID-19 03/05/2022 03/05/2022 03/15/2022 7:18 PM EDT documented as of this encounter Care Teams Carpet Cleaner Relationship Specialty Start Date End Date Caitlyn Bowie MD 3400 [facility] Max 1 [place] [address] PCP - General Internal Medicine 05/06/21 Henry Kelly MD Pulmonary Department 175 [facility], [address] [place] [address] Physician Pulmonary Disease 09/06/17 06/22/20 documented as of this encounter
--- OUTSIDE RECORDS SUMMARY | 2024-09-05 10:51 | XMS_ITS | Encounter Summary ---
Author Organization [facility] and [facility] Address [address] [place] [address] Care Team Providers Care Separator Operator Name Role Phone Caitlyn Bowie MD Primary Care Provider +1- [phone] Encounter Details Date Type Department Care Team (Late st Contact Info) Description 12/16/2016 Scanned Document [facility] Health Information Management [address] [place] [address] External, Provider Social History Tobacco Use Types [...] EDT Procedure visit [facility] [address] [place] [address] [address] [place] [address] 10/31/2024 1:00 PM EDT Telemedicine Cancer Center at [facility] 240 [facility] Building [address] [place], [place] [address] Ronald Mills MD 240 [facility] A1 [place] [address] documented as of this encounter Procedures Procedure [...] documented as of this encounter Care Teams Separator Operator Relationship Specialty Start Date End Date Caitlyn Bowie MD 3400 [facility] 1 [place] [address] PCP - General Internal Medicine 05/06/21 Henry Kelly MD Pulmonary Department 175 [facility], [address] [place] [address] Physician Pulmonary Disease 09/06/17 06/22/20 documented as of this encounter
--- OUTSIDE RECORDS SUMMARY | 2024-09-05 10:51 | XMS_ITS | Encounter Summary ---
Author Organization [facility] and [facility] Address 20 [place] [address] Care Team Providers Care Sheriff Officer Name Role Phone Caitlyn Bowie MD Primary Care Provider +1- [phone] Encounter Details Date Type Department Care Team (Late st Contact Info) Description 01/28/2013 Scanned Document Thoracic Oncology Program at [address] [address] [place] Henry MD [address] [place] [address] Social History Tobacco Use Types Packs/Day [...] Procedure visit [facility] [address] [place] [address] [place] [address] 10/31/2024 1:00 PM EDT Telemedicine Cancer Center at [address] [place] [address] Ronald Mills MD [address] [place] [address] [address] documented as of this encounter Visit Diagnoses Not on filedocumented in this encounter Additional Health Concerns Infection Onset Date Last Indicated Resolved Time COVID-19 03/05/2022 03/05/2022 03/15/2022 7:18 PM EDT documented as of this encounter Care Teams Sheriff Officer Relationship Specialty Start Date End Date Caitlyn Bowie MD 3400 [facility] 1 [place] [address] PCP - General Internal Medicine 05/06/21 Henry Kelly MD Pulmonary Department 175 [facility], [address] [place] [address] Physician Pulmonary Disease 09/06/17 06/22/20 documented as of this encounter
--- OUTSIDE RECORDS SUMMARY | 2024-09-05 10:51 | XMS_ITS | Encounter Summary ---
Author Organization [facility] and [facility] Address [address] [place] [address] Care Team Providers Care Wind Turbine Installer Name Role Phone Caitlyn Bowie MD Primary Care Provider +1- [phone] Encounter Details Date Type Department Care Team (Late st Contact Info) Description 01/22/2020 Scanned Document [facility] [address] [place] [address] Kerwin Menjivar MD [address] [place] [address] Social History Tobacco Use Types Packs/Day [...] Description 09/30/2024 8:00 PM EDT Procedure visit [facility] [address] [place] [address] [address] [place] [address] 10/31/2024 1:00 PM EDT Telemedicine Cancer Center at [address] [place], [place] [address] Ronald Mills MD 240 [facility] Max A1 [place] [address] documented as of this encounter Visit Diagnoses Not on filedocumented in this encounter Additional Health Concerns Infection Onset Date Last Indicated Resolved Time COVID-19 03/05/2022 03/05/2022 03/15/2022 7:18 PM EDT Assessment Noted Time PHQ-9 Depression Total Score: 2 11/07/19 19 2:06 PM EDT documented as of this encounter Care Teams Wind Turbine Installer Relationship Specialty Start Date End Date Caitlyn Bowie MD [address] [address] PCP - General Internal Medicine 05/06/21 Henry Kelly MD Pulmonary Department 175 [facility], [address] [place] [address] Physician Pulmonary Disease 09/06/17 06/22/20 documented as of this encounter
--- OUTSIDE RECORDS SUMMARY | 2024-09-05 10:51 | XMS_ITS | Encounter Summary ---
Author Organization [facility] Address [address] [place] [address] Care Team Providers Care Light Cleaner Name Role Phone Victorino Martin MD Primary Care Provider UnavailSharon Kimbrough Primary Care Provider Unava ilable Brennan Burnett MD Primary Care Provider Unavailab Hayden Montes MD Unavailable [phone] Pallavi Flood NP Unavailable +1- [phone] Caitlyn Bowie MD Primary Care Provider Unava ilable Reason for Visit * Reason Onset Date Comments Orders Call 07/30/2018 ultrasound Encounter Details Date Type Department Care Team Description 07/30/2018 Telephone Pulmonology - [address] [place] [address] Henry Kelly MD Orders Call [...] have no order. Please fax order to [phone]. documented in this encounter Plan of Treatment Not on file documented as of this encounter Visit Diagnoses Not on filedocumented in this encounter Care Teams Light Cleaner Relationship Specialty Start Date End Date Victorino Martin MD PCP - General Internal Medicine 12/21/17 08/01/18 Sharon Vides PCP - General Internal Medicine 08/02/18 05/26/20 Brennan Burnett MD PCP - General Internal Medicine 05/27/20 12/07/21 Caitlyn Bowie MD [address] [place] [address] PCP - General Internal Medicine 12/08/21 Hayden Shah MD [address] [place] [address] Specialist Cardiovascular Disease 09/01/20 Pallavi Flood NP [address] [place] [address] Cardiology 09/01/20 documented as of this encounter
--- OUTSIDE RECORDS SUMMARY | 2024-09-05 10:51 | XMS_ITS | Encounter Summary ---
Author Organization [facility] and [facility] Address [address] [place] [address] Care Team Providers Care Professor Of Business Administration Name Role Phone Caitlyn Bowie MD Primary Care Provider [phone]- [phone] Encounter Details Date Type Department Care Team (Late st Contact Info) Description 12/16/2016 Scanned Document [facility] Health Information Management [address] [place] [address] External, Provider Social History Tobacco Use Types [...] Description 09/30/2024 8:00 PM EDT Procedure visit [facility] [address] [place] [address] [address] [place] [address] 10/31/2024 1:00 PM EDT Telemedicine Cancer Center at [facility] [address] [facility] [address] [place], [place] [address] Ronald Mills MD 240 [facility] [address] [place] [phone] documented as of this encounter Procedures Procedure [...] of this encounter Care Teams Professor Of Business Administration Relationship Specialty Start Date End Date Caitlyn Bowie MD 3400 [facility] 1 [place] [address] PCP - General Internal Medicine 05/06/21 Henry Kelly MD Pulmonary Department 175 [facility], [address] [place] [address] Physician Pulmonary Disease 09/06/17 06/22/20 documented as of this encounter
--- OUTSIDE RECORDS SUMMARY | 2024-09-05 10:51 | XMS_ITS | Encounter Summary ---
Author Organization [facility] Address [address] [place] [address] Care Team Providers Care Canvas Worker Apprentice Name Role Phone Caitlyn Bowie MD Primary Care Provider [phone]- [phone] Encounter Details Date Type Department Care Team (Late st Contact Info) Description 09/07/2020 Scanned Document Cardiovascular Medicine at [address] [address] Norma Renee MD [address] [place] [phone] Social History Tobacco Use Types Packs/Day Years [...] Description 09/30/2024 8:00 PM EDT Procedure visit [facility] [address] [place] [address] [address] [place] [address] 10/31/2024 1:00 PM EDT Telemedicine Cancer Center at [address] [place], [place] [address] Ronald Mills MD 240 [facility] [address] [place] [address] documented as of this encounter Visit Diagnoses Not on filedocumented in this encounter Additional Health Concerns Infection Onset Date Last Indicated Resolved Time COVID-19 03/05/2022 03/05/2022 03/15/2022 7:18 PM EDT Assessment Noted Time PHQ-9 Depression Total Score: 2 11/07/19 19 2:06 PM EDT documented as of this encounter Care Teams Canvas Worker Apprentice Relationship Specialty Start Date End Date Caitlyn Bowie MD [address] [address] PCP - General Internal Medicine 05/06/21 documented as of this encounter
--- OUTSIDE RECORDS SUMMARY | 2024-09-05 10:51 | XMS_ITS | Encounter Summary ---
Author Organization [facility] Address [address] [place] [address] Care Team Providers Care Disability Advocate Name Role Phone Victorino Martin MD Primary Care Provider Sharon Odonnell Primary Care Provider Brennan Castro MD Primary Care Provider Unavailab Hayden Montes MD Unavailable [phone] Pallavi Flood NP Unavailable [phone] Caitlyn Bowie MD Primary Care Provider Johnathon shaver Encounter Details Date Type Department Care Team Description 07/06/2018 Pt. Non Urgent Medic al Question Pulmonology - [address] [place] [address] Henry Kelly MD Social History [...] on filedocumented in this encounter Care Teams Disability Advocate Relationship Specialty Start Date End Date Victorino Martin MD PCP - General Internal Medicine 12/21/17 08/01/18 Sharon Vides PCP - General Internal Medicine 08/02/18 05/26/20 Brennan Burnett MD PCP - General Internal Medicine 05/27/20 12/07/21 Caitlyn Bowie MD [address] [place] [address] PCP - General Internal Medicine 12/08/21 Hayden Shah MD [address] [place] [address] Specialist Cardiovascular Disease 09/01/20 Pallavi Flood NP [address] [place] [address] Cardiology 09/01/20 documented as of this encounter
--- OUTSIDE RECORDS SUMMARY | 2024-09-05 10:52 | XMS_ITS | Encounter Summary ---
Author Organization [facility] Address [address] [place] [address] Care Team Providers Care Plant Pathologist Name Role Phone Cristofer Hope MD Primary Care Provider Victorino Read MD Primary Care Provider UnavailSharon Kimbrough Primary Care Provider Unava Brennan Zheng MD Primary Care Provider Unavailab Hayden Montes MD Unavailable [phone] Pallavi Flood NP Unavailable [phone] Caitlyn Bowie MD Primary Care Provider Unaailyn shaver Encounter Details Date Type Department Care Team Description 08/07/2017 Hospital Medical Records [address] [place] [address] Abstract, Provider Social History Tobacco Use Types [...] filedocumented in this encounter Care Teams Plant Pathologist Relationship Specialty Start Date End Date Cristofer Hope MD PCP - General Internal Medicine 05/16/17 12/20/17 Victorino Martin MD PCP - General Internal Medicine 12/21/17 08/01/18 Sharon Vides PCP - General Internal Medicine 08/02/18 05/26/20 Brennan Burnett MD PCP - General Internal Medicine 05/27/20 12/07/21 Caitlyn Bowie MD [address] [place] [address] PCP - General Internal Medicine 12/08/21 Hayden Shah MD [address] [place] [address] Specialist Cardiovascular Disease 09/01/20 Pallavi Flood NP [address] [place] [address] Cardiology 09/01/20 documented as of this encounter
--- OUTSIDE RECORDS SUMMARY | 2024-09-05 10:52 | XMS_ITS | Encounter Summary ---
Author Organization [facility] Address [address] [place] [address] Care Team Providers Care Videotape Sales Representative Name Role Phone Victorino Martin MD Primary Care Provider Sharon Odonnell Primary Care Provider Brennan Castro MD Primary Care Provider UnavailHayden Fernandez MD Unavailable Pallavi Flood NP Unavailable [phone] Caitlyn Bowie MD Primary Care Provider Johnathon shaver Encounter Details Date Type Department Care Team Description 03/01/2018 Program Director Group Work Report Medical Records [address] [place] [address] Renetta Lugo Np Social History Tobacco Use [...] on filedocumented in this encounter Care Teams Videotape Sales Representative Relationship Specialty Start Date End Date Victorino Martin MD PCP - General Internal Medicine 12/21/17 08/01/18 Sharon Vides PCP - General Internal Medicine 08/02/18 05/26/20 Brennan Burnett MD PCP - General Internal Medicine 05/27/20 12/07/21 Caitlyn Bowie MD [address] [place] [address] PCP - General Internal Medicine 12/08/21 Hayden Shah MD [address] [place], [place] [phone] Specialist Cardiovascular Disease 09/01/20 Pallavi Flood NP [address] [place] [phone] Cardiology 09/01/20 documented as of this encounter
--- OUTSIDE RECORDS SUMMARY | 2024-09-05 10:52 | XMS_ITS | Encounter Summary ---
Author Organization [facility] and [facility] Address [address] [place] [address] Care Team Providers Care Engine Specialist Name Role Phone Caitlyn Bowie MD Primary Care Provider [phone]- [phone] Encounter Details Date Type Department Care Team (Late st Contact Info) Description 08/21/2017 Scanned Document [facility] Health Information Management [address] [place] [address] External, Provider Social History Tobacco Use Types [...] Description 09/30/2024 8:00 PM EDT Procedure visit [facility] [address] [place] [address] [address] [place] [phone] 10/31/2024 1:00 PM EDT Telemedicine Cancer Center at [facility] 240 [facility] [address] [place], [place] [phone] Ronald Mills MD 240 [facility] [address]1 [place] [address] documented as of this encounter [...] documented as of this encounter Care Teams Engine Specialist Relationship Specialty Start Date End Date Caitlyn Bowie MD 3400 [facility] 1 [place] [address] PCP - General Internal Medicine 05/06/21 Henry Kelly MD Pulmonary Department 175 [facility], [address] [place] [address] Physician Pulmonary Disease 09/06/17 06/22/20 documented as of this encounter
--- OUTSIDE RECORDS SUMMARY | 2024-09-05 10:52 | XMS_ITS | Encounter Summary ---
Author Organization [facility] Address [address] [place] [address] Care Team Providers Care Client Support Associate Name Role Phone Cristofer Hope MD Primary Care Provider Victorino Read MD Primary Care Provider UnavailSharon Kimbrough Primary Care Provider Unava ilBrennan Newman MD Primary Care Provider Unavailab Hayden Montes MD Unavailable [phone] Pallavi Flood NP Unavailable [phone] Caitlyn Bowie MD Primary Care Provider Unava ilable Encounter Details Date Type Department Care Team Description 10/24/2017 Pt. Non Urgent Medical Question Pulmonology - [address] [place] [address] Leslie Caro NP Allergic rhinitis, [...] me. Thank you, Jovana chaveso.b. 1945 telephone [phone] documented in this encounter Plan of Treatment Not on file documented as of this encounter Visit Diagnoses Diagnosis Allergic rhinitis, unspecified chronicity, unspecified seasonality, unspecified trigger- Primary documented in this encounter Care Teams Client Support Associate Relationship Specialty Start Date End Date Cristofer Hope MD PCP - General Internal Medicine 05/16/17 12/20/17 Victorino Martin MD PCP - General Internal Medicine 12/21/17 08/01/18 Sharon Vides PCP - General Internal Medicine 08/02/18 05/26/20 Brennan Burnett MD PCP - General Internal Medicine 05/27/20 12/07/21 Caitlyn Bowie MD [address] [place] [address] PCP - General Internal Medicine 12/08/21 Hayden Shah MD [address] [place] [address] Specialist Cardiovascular Disease 09/01/20 Pallavi Flood NP [address] [place] [address] Cardiology 09/01/20 documented as of this encounter
--- OUTSIDE RECORDS SUMMARY | 2024-09-05 10:52 | XMS_ITS | Encounter Summary ---
Author Organization [facility] and [facility] Address [address] [place] [address] Care Team Providers Care Opera Singer Name Role Phone Caitlyn Bowie MD Primary Care Provider [phone]- [phone] Encounter Details Date Type Department Care Team (Late st Contact Info) Description 06/27/2019 Scanned Document Onco-Oncology Program at [address] [place] [address] Norma Renee MD [address] [place] [address] 2 [place] [phone] Social History Tobacco Use Types Packs/Day Years [...] Description 09/30/2024 8:00 PM EDT Procedure visit [facility] [address] [place] [address] 10/31/2024 1:00 PM EDT Telemedicine Cancer Center at [address] [place], [place] [address] Ronald Mills MD 240 [facility] [address] [place] [address] documented as of this encounter Visit Diagnoses Not on filedocumented in this encounter Additional Health Concerns Infection Onset Date Last Indicated Resolved Time COVID-19 03/05/2022 03/05/2022 03/15/2022 7:18 PM EDT Assessment Noted Time PHQ-9 Depression Total Score: 2 11/07/19 19 2:06 PM EDT documented as of this encounter Care Teams Opera Singer Relationship Specialty Start Date End Date Caitlyn Bowie MD [address] [facility] 1 [place] [address] PCP - General Internal Medicine 05/06/21 Henry Kelly MD Pulmonary Department [address] [place] [address], [address] [place] [address] Physician Pulmonary Disease 09/06/17 06/22/20 documented as of this encounter
--- OUTSIDE RECORDS SUMMARY | 2024-09-05 10:52 | XMS_ITS | Encounter Summary ---
Author Organization [facility] Address [address] [place] [address] Care Team Providers Care Obstetrical Anesthesiologist Name Role Phone Cristofer Hope MD Primary Care Provider Victorino Read MD Primary Care Provider UnavailSharon Kimbrough Primary Care Provider Unava ilBrennan Newman MD Primary Care Provider Unavailab Hayden Montes MD Unavailable [phone] Pallavi Flood NP Unavailable [phone] Caitlyn Bowie MD Primary Care Provider Unava chhaya Encounter Details Date Type Department Care Team Description 11/15/2017 Transfer Records Medical Records [address] [place] [address] Abstract, Provider Social History Tobacco Use Types Packs/Day Years Used Date Smoking Tobacco: Never Smokeless Tobacco: Never Physical Activity Answer Date Recorded [...] on filedocumented in this encounter Care Teams Obstetrical Anesthesiologist Relationship Specialty Start Date End Date Cristofer Hope MD PCP - General Internal Medicine 05/16/17 12/20/17 Victorino Martin MD PCP - General Internal Medicine 12/21/17 08/01/18 Sharon Vides PCP - General Internal Medicine 08/02/18 05/26/20 Brennan Burnett MD PCP - General Internal Medicine 05/27/20 12/07/21 Caitlyn Bowie MD [address] [place] [address] PCP - General Internal Medicine 12/08/21 Hayden Shah MD [address] [place] [address] Specialist Cardiovascular Disease 09/01/20 Pallavi Flood NP [address] [place] [address] Cardiology 09/01/20 documented as of this encounter
--- OUTSIDE RECORDS SUMMARY | 2024-09-05 10:52 | XMS_ITS | Encounter Summary ---
Author Organization [facility] Address [address] [place] [address] Care Team Providers Care Pulp Mill Operator Name Role Phone Brennan Burnett MD Primary Care Provider [phone] Reason for Visit * Reason Comments Encopresis Encounter Details Date Type Department Care Team (Latest Contact Info) Description 08/23/2024 1:20 PM EST Office Visit Gastroenterology - [address] [facility] [address] [place] [phone] Saima Amor, ALON [address] [facility] [address] [address] Gastroesophageal reflux disease, unspecified whether esophagitis present [...] X week. No bleeding Very gassy. 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 Board Certified Gastroenterology [facility] W [phone] 299 [facility] [address] [place] [address] [email or web address] Saima Amor NP documented in this encounter Plan of Treatment Upcoming Encounters Date Type Department Care Team (Late st Contact Info) Description 09/09/2024 3:30 PM EST Treatment [facility] Speech Therapy 175 [facility] [address] [place] [phone] Daphne Alarcon, STUDENT MINISTRY PASTOR documented as of this encounter Goals Goal Patient Goal Type Associated Problems Recent Progress Patient-Stated? Author ST LTG General No Daphne Alarcon, STUDENT MINISTRY PASTOR Note: Pt will improve cognitive linguistic function to participate and communicate in iADLs mod I ST STGs General No Daphne Alarcon, STUDENT MINISTRY PASTOR Note: Pt will participate with development of [...] type documented in this encounter Care Teams Pulp Mill Operator Relationship Specialty Start Date End Date Brennan Burnett MD [address] [place] [address] PCP - General 05/06/24 documented as of this encounter
--- OUTSIDE RECORDS SUMMARY | 2024-09-05 10:52 | XMS_ITS | Encounter Summary ---
Author Organization [facility] and [facility] Address [address] [place] [address] Care Team Providers Care Binder Stripper Machine Name Role Phone Caitlyn Bowie MD Primary Care Provider [phone]- [phone] Encounter Details Date Type Department Care Team (Late st Contact Info) Description 06/27/2019 Scanned Document Onco-Oncology Program at [address] [place] [address] Norma Renee MD [address] [place] [address] 2 [place] [phone] Social History Tobacco Use Types Packs/Day Years [...] Description 09/30/2024 8:00 PM EDT Procedure visit [facility] [address] [place] [address] 10/31/2024 1:00 PM EDT Telemedicine Cancer Center at [address] [place], [place] [address] Ronald Mills MD 240 [facility] [address] [place] [address] documented as of this encounter Visit Diagnoses Not on filedocumented in this encounter Additional Health Concerns Infection Onset Date Last Indicated Resolved Time COVID-19 03/05/2022 03/05/2022 03/15/2022 7:18 PM EDT Assessment Noted Time PHQ-9 Depression Total Score: 2 11/07/19 19 2:06 PM EDT documented as of this encounter Care Teams Binder Stripper Machine Relationship Specialty Start Date End Date Caitlyn Bowie MD 3400 [facility] 1 [place] [address] PCP - General Internal Medicine 05/06/21 Henry Kelly MD Pulmonary Department [address] [place] [address], [address] [place] [address] Physician Pulmonary Disease 09/06/17 06/22/20 documented as of this encounter
--- OUTSIDE RECORDS SUMMARY | 2024-09-05 10:52 | XMS_ITS | Encounter Summary ---
Author Organization [facility] and [facility] Address [address] [place] [address] Care Team Providers Care Land Surveying Party Chief Name Role Phone Caitlyn Bowie MD Primary Care Provider [phone]- [phone] Encounter Details Date Type Department Care Team (Late st Contact Info) Description 01/28/2013 Scanned Document Thoracic Oncology Program at [address] [address] Solo Henry MD [address] [place] [phone] Social History Tobacco Use Types Packs/Day [...] Description 09/30/2024 8:00 PM EDT Procedure visit [facility] [address] [place] [address] [place] [phone] 10/31/2024 1:00 PM EDT Telemedicine Cancer Center at [address] [place] [address] Ronald Mills MD [address] [place] [address] [phone] documented as of this encounter Visit Diagnoses Not on filedocumented in this encounter Additional Health Concerns Infection Onset Date Last Indicated Resolved Time COVID-19 03/05/2022 03/05/2022 03/15/2022 7:18 PM EDT documented as of this encounter Care Teams Land Surveying Party Chief Relationship Specialty Start Date End Date Caitlyn Bowie MD 3400 [facility] 1 [place] [address] PCP - General Internal Medicine 05/06/21 Henry Kelly MD Pulmonary Department 175 [facility], [address] [place] [address] Physician Pulmonary Disease 09/06/17 06/22/20 documented as of this encounter
--- OUTSIDE RECORDS SUMMARY | 2024-09-05 10:52 | XMS_ITS | Clinical Summary ---
Author Organization [address] Address [address] [place] [address] Phone Care Team Providers Care Sr. Manager Name Role Phone Caitlyn Bowie MD Primary Care Provider +1- [phone] Allergies Active Allergy Reactions Criticality Noted Date [...] Encounters Date Type Department Care Team Description 08/30/2024 Abstract [facility] [address] [place] [phone] Adalgisa Whitney MD 07/15/2024 Telephone [facility] at [address] [address] Ronald Mills MD Triage from Last 3 Months Immunizations Name Administration [...] Description 09/30/2024 8:00 PM EDT Procedure visit [facility] [address] [place] [address] [address] [place] [address] 10/31/2024 1:00 PM EDT Telemedicine Cancer Center at [address] [place], [place] [address] Ronald Mills MD 240 [facility] A1 [place] [phone] Health Maintenance Due Date Last Done Comments [...] 04/25/2013 Osteoporosis screening (bone density) Completed 05/10/2017 Pneumococcal Vaccine (50+ years) Completed 08/31/2021, 03/25/2016, 09/17/2015, Additional history exists Influenza vaccine [...] - 144 mmol/L 04/05/2022 1:43 PM EDT [facility] DEPARTMENT OF LABORATORY MEDICINE [facility] Potassium 4.7 3.3 - 5.3 mmol/L 04/05/2022 1:43 PM EDT [facility] DEPARTMENT OF LABORATORY MEDICINE [facility] Chloride 100 98 - 107 mmol/L 04/05/2022 1:43 PM EDT [facility] DEPARTMENT OF LABORATORY MEDICINE [facility] CO2 30 20 - 30 mmol/L 04/05/2022 1:43 PM EDT [facility] DEPARTMENT OF LABORATORY MEDICINE [facility] Anion Gap 8 7 - 17 04/05/2022 1:43 PM EDT [facility] DEPARTMENT OF LABORATORY MEDICINE [facility] Glucose 115(H) 70 - 100 mg/dL 04/05/2022 1:43 PM EDT [facility] DEPARTMENT OF LABORATORY MEDICINE [facility] BUN 16 8 - 23 mg/dL 04/05/2022 1:43 PM EDT [facility] DEPARTMENT [facility] LABORATORY MEDIC[facility] Creatinine 0.89 0.40 - 1.30 mg/dL 04/05/2022 1:43 PM EDT [facility] DEPARTMENT [facility] LABORATORY MED[facility] Calcium 10.5(H) 8.8 - 10.2 mg/dL 04/05/2022 1:43 PM EDT [facility] DEPARTMENT OF LABORATORY MEDICINE [facility] BUN/Creatinine Ratio 18.0 8.0 - 23.0 03/11 1:43 PM EDT [facility] DEPARTMENT OF LABORATORY MEDIC[facility] Total Protein 7.0 6.6 - 8.7 g/dL 04/05/2022 1:43 PM EDT [facility] DEPARTMENT OF LABORATORY MEDIC[facility] Albumin 4.2 3.6 - 4.9 g/dL 04/05/2022 1:43 PM EDT [facility] DEPARTMENT OF LABORATORY MEDICINE [facility] Total Bilirubin 0.6 <=1.2 mg/dL 04/05/2022 1:43 PM EDT [facility] DEPARTMENT OF LABORATORY MEDICINE [facility] Alkaline Phosphatase 58 9 - 122 U/L 04/05/2022 1:43 PM T [facility] DEPARTMENT OF LABORATORY MEDIC[facility] Alanine Aminotransferase (ALT) 19 10 - 35 U/L 04/05/2022 1:43 PM EDT [facility] DEPARTMENT OF LABORATORY MEDICINE [facility] Comment:Calcium dobesilate c an cause artificially low ALT results at therapeutic concentrations Aspartate Aminotransferase (AST) 26 10 - 35 U/L 04/05/2022 1:43 PM EDT [facility] DEPARTMENT OF LABORATORY MEDICINE [facility] Globulin 2.8 2.3 - 3.5 g/dL 04/05/2022 1:43 PM EDT [facility] DEPARTMENT OF LABORATORY MEDICINE [facility] A/G Ratio 1.5 1.0 - 2.2 04/05/2022 1:43 PM EDT [facility] DEPARTMENT OF LABORATORY MEDICINE - [facility] AST/ALT Ratio 1.4 See Comment 04/05/2022 1:43 PM EDT [facility] DEPARTMENT OF LABORATORY MEDICINE [facility] Comment: Adult with mild elevations of transaminases (< 5 times upper limit of normal): AST/ALT > 2 suggests alcoholic liver injury AST/ALT < 1 suggests non-alcoholic fatty liver disease (NAFLD) [place] (healthy): AST/ALT can be > 3 on day 0 AST/ALT < 2 by day 5 The thresholds provided focus on the most common etiologies of elevated serum transaminase levels and the associated alteration of AST:ALT ratios; they are not intended to exclude other feasible and clinically appropriate possibilities eGFR (Creatinine) >60 >=60 mL/min/1.7 3m2 04/05/2022 1:43 PM EDT [facility] DEPARTMENT OF LABORATORY MEDICINE [facility] Comment:Estimated glomerular filtration rate (eGFR) was [...] 1:13 PM EDT 04/05/2022 1:14 PM EDT us Ronald Mills MD LAB BLOOD ORDERABLES Final Resul t [facility] DEPARTMENT OF LABORATORY MEDICINE [facility] [address] [place] [address] * Bone Density Result Scan (05/10/2017) us Historical Provider IMG SCAN REPORTS Final Resul t * (ABNORMAL) Lipid panel (03/18/2016 2:55 PM EDT) Cholesterol 229(H) 115 - 199 mg/dL 03/18/2016 8:11 PM EDT [facility] HDL 83 >=40 mg/dL 03/18/2016 8:11 PM EDT [facility] Triglycerides 71 30 - 150 mg/dL 03/18/2016 8:11 PM EDT [facility] Chol/HDL Ratio 2.8 <=5 03/18/2016 8:11 PM EDT [facility] Comment:Cholesterol/HDL rati o cannot be calculated. LDL Calculated 132 See Comment mg/dL 03/18/2016 8:11 PM EDT [facility] Comment: <100: Optimal 100-129: Near optimal/above optimal 130-159: Borderline high risk 160-189: High risk ??>=190: Very high risk Blood specimen (specimen) Venipuncture / Unknown 03/18/2016 2:55 PM EDT 03/18/2016 3:17 PM EDT Narrative [facility] - 03/18/2016 8:11 PM EDT $18.27 us Sangeeta Garces MD LAB BLOOD ORDERABLES Fin al Result Performing Organization Address [facility]/State/[facility] Co de Phone Number [facility] [address] [place] [address] * MAMMOGRAPHY REPORT (04/25/2013 6:47 AM EDT) 04/25/2013 6:47 AM EDT us Provider Not In System IMG SCAN REPORTS Final Re sult from Last 3 Months or Most Recently Relevant to Health Maintenance Insurance MEDICARE [facility] MEDICARE [facility] MEDICARE [facility] MEDICARE MEDICARE BCBS Advance Directives * Full ACLS (Latest Code Status on File) Date Activated Date Inactivated Comments 12/15/2018 7:13 PM 12/16/2018 6:09 PM * Full Interventions Date Activated Date Inactivated Comments 03/18/2016 6:34 PM 03/19/2016 6:40 PM Care Teams Sr. Manager Relationship Specialty Start Date End Date Caitlyn Bowie MD [address] [address] PCP - General Internal Medicine 05/06/21
--- OUTSIDE RECORDS SUMMARY | 2024-09-05 10:52 | XMS_ITS | Encounter Summary ---
Author Organization [facility] Address [address] [place] [address] Care Team Providers Care Senior Scheduler Name Role Phone Caitlyn Bowie MD Primary Care Provider +1- [phone] Encounter Details Date Type Department Care Team (Late st Contact Info) Description 04/27/2017 Scanned Document [facility] Health Information Management [address] [place] [address] External, Provider Social History Tobacco Use Types [...] Description 09/30/2024 8:00 PM EDT Procedure visit [facility] [address] [place] [address] [address] [place] [address] 10/31/2024 1:00 PM EDT Telemedicine Cancer Center at [facility] [address] [facility] Building [address] [place], [place] [address] Ronald Mills MD [address] [facility] [address] [place] [phone] documented as of this encounter Visit Diagnoses Not on filedocumented in this encounter Additional Health Concerns Infection Onset Date Last Indicated Resolved Time COVID-19 03/05/2022 03/05/2022 03/15/2022 7:18 PM EDT documented as of this encounter Care Teams Senior Scheduler Relationship Specialty Start Date End Date Caitlyn Bowie MD 3400 [facility] [address] [place] [address] PCP - General Internal Medicine 05/06/21 Henry Kelly MD Pulmonary Department 175 [facility], [address] [place] [address] Physician Pulmonary Disease 09/06/17 06/22/20 documented as of this encounter
--- OUTSIDE RECORDS SUMMARY | 2024-09-05 10:52 | XMS_ITS | Encounter Summary ---
Author Organization [facility] Address [address] [place] [address] Care Team Providers Care Supervising Chef Name Role Phone Caitlyn Bowie MD Primary Care Provider +1- [phone] Encounter Details Date Type Department Care Team (Late st Contact Info) Description 04/26/2017 Scanned Document Cardiovascular Medicine at [address] [address] Norma Renee MD [address] [place] [phone] Social History Tobacco Use Types Packs/Day Years [...] Description 09/30/2024 8:00 PM EDT Procedure visit [facility] [address] [place] [address] [address] [place] [address] [phone] 10/31/2024 1:00 PM EDT Telemedicine Cancer Center at [facility] [address] [facility] [address] [place] [address] Ronald Mills MD 240 [facility] [address] [place] [address] documented as of this encounter Visit Diagnoses Not on filedocumented in this encounter Additional Health Concerns Infection Onset Date Last Indicated Resolved Time COVID-19 03/05/2022 03/05/2022 03/15/2022 7:18 PM EDT documented as of this encounter Care Teams Supervising Chef Relationship Specialty Start Date End Date Caitlyn Bowie MD 3400 [facility] 1 [place] [address] PCP - General Internal Medicine 05/06/21 Henry Kelly MD Pulmonary Department 175 [facility], [address] [place] [address] Physician Pulmonary Disease 09/06/17 06/22/20 documented as of this encounter
--- OUTSIDE RECORDS SUMMARY | 2024-09-05 10:52 | XMS_ITS | Encounter Summary ---
Author Organization [facility] and [facility] Address [address] [place] [address] Care Team Providers Care Mobility Engineer Name Role Phone Caitlyn Bowie MD Primary Care Provider +1- [phone] Encounter Details Date Type Department Care Team (Late st Contact Info) Description 08/29/2019 Scanned Document Cancer Center at [address] [address] External, Provider Social History Tobacco Use Types [...] Description 09/30/2024 8:00 PM EDT Procedure visit [facility] [address] [place] [address] [place] [phone] 10/31/2024 1:00 PM EDT Telemedicine Cancer Center at [address] [place] [address] Ronald Mills MD [address] [address] documented as of this encounter [...] documented as of this encounter Care Teams Mobility Engineer Relationship Specialty Start Date End Date Caitlyn Bowie MD 3400 [facility] [address] 1 [place] [address] PCP - General Internal Medicine 05/06/21 Henry Kelly MD Pulmonary Department [address] [place] [address], [address] [place] [address] Physician Pulmonary Disease 09/06/17 06/22/20 documented as of this encounter
--- OUTSIDE RECORDS SUMMARY | 2024-09-05 10:52 | XMS_ITS | Encounter Summary ---
Author Organization [facility] Address [address] [place] [address] Care Team Providers Care Marine Diesel Technician Name Role Phone Victorino Martin MD Primary Care Provider Sharon Odonnell Primary Care Provider Brennan Castro MD Primary Care Provider Unavailab Hayden Montes MD Unavailable [phone] Pallavi Flood NP Unavailable [phone]- [phone] Caitlyn Bowie MD Primary Care Provider Johnathon shaver Encounter Details Date Type Department Care Team Description 02/06/2018 Telephone Pulmonology - [address] [place] [address] Henry Kelly MD Social History [...] on filedocumented in this encounter Care Teams Marine Diesel Technician Relationship Specialty Start Date End Date Victorino Martin MD PCP - General Internal Medicine 12/21/17 08/01/18 Sharon Vides PCP - General Internal Medicine 08/02/18 05/26/20 Brennan Burnett MD PCP - General Internal Medicine 05/27/20 12/07/21 Caitlyn Bowie MD [address] [place] [address] PCP - General Internal Medicine 12/08/21 Hayden Shah MD [address] [place] [address] Specialist Cardiovascular Disease 09/01/20 Pallavi Flood NP [address] [place] [address] Cardiology 09/01/20 documented as of this encounter
--- OUTSIDE RECORDS SUMMARY | 2024-09-05 10:52 | XMS_ITS | Encounter Summary ---
Author Organization [facility] Address [address] [place] [address] Care Team Providers Care Terrazzo Mechanic Helper Name Role Phone Caitlyn Bowie MD Primary Care Provider +1- [phone] Encounter Details Date Type Department Care Team (Late st Contact Info) Description 08/16/2012 Abstract [facility] Health Information Management [address] [place] [address] [place], Primary Care [address] [place] [address] Social History Tobacco Use Types Packs/Day Years [...] 09/30/2024 8:00 PM EDT Procedure visit [facility] [address] [place] [phone] 10/31/2024 1:00 PM EDT Telemedicine Cancer Center at [facility] [place] 240 [facility] [place] Building [address] [place] [address] Ronald Mills MD 240 [facility] Max [address] [place] [address] documented as of this encounter Visit Diagnoses Not on filedocumented in this encounter Additional Health Concerns Infection Onset Date Last Indicated Resolved Time COVID-19 03/05/2022 03/05/2022 03/15/2022 7:18 PM EDT documented as of this encounter Care Teams Terrazzo Mechanic Helper Relationship Specialty Start Date End Date Caitlyn Bowie MD 3400 [facility] 1 [place] [address] PCP - General Internal Medicine 05/06/21 Henry Kelly MD Pulmonary Department 175 [facility], [address] [place] [address] Physician Pulmonary Disease 09/06/17 06/22/20 documented as of this encounter
--- OUTSIDE RECORDS SUMMARY | 2024-09-05 10:52 | XMS_ITS | Encounter Summary ---
Author Organization [facility] Address [address] [place] [address] Care Team Providers Care Telegraphic Typewriter Mechanic Name Role Phone Cristofer Hope MD Primary Care Provider Maria GuadalupevaVictorino Negrete MD Primary Care Provider Unavaila Sharon Rios Primary Care Provider Unava ilable Brennan Burnett MD Primary Care Provider Unavailab Hayden Montes MD Unavailable [phone] Pallavi Flood NP Unavailable [phone]- [phone] Caitlyn Bowie MD Primary Care Provider Unava ilable Reason for Visit * Reason Onset Date Comments Medication 10/26/2017 Encounter Details Date Type Department Care Team Description 10/26/2017 Telephone Pulmonology - [address] [place] [phone] Leslie Caro NP Medication Social History [...] EDT Pharmacist Mat from [employer] [facility] said that they are not carrying Ephinephrine 0.3mg/0.30ml in the brand her insurance pays for he said to call [phone] [facility] [phone] ifTfareed can expatiated this documented in this encounter Plan of Treatment Not on file documented as of this encounter Visit Diagnoses Not on filedocumented in this encounter Care Teams Telegraphic Typewriter Mechanic Relationship Specialty Start Date End Date Cristofer Hope MD PCP - General Internal Medicine 05/16/17 12/20/17 Victorino Martin MD PCP - General Internal Medicine 12/21/17 08/01/18 Sharon Vides PCP - General Internal Medicine 08/02/18 05/26/20 Brennan Burnett MD PCP - General Internal Medicine 05/27/20 12/07/21 Caitlyn Bowie MD [address] [place] [address] PCP - General Internal Medicine 12/08/21 Hayden Shah MD [address] [place] [address] Specialist Cardiovascular Disease 09/01/20 Pallavi Flood NP [address] [place] [address] Cardiology 09/01/20 documented as of this encounter
--- OUTSIDE RECORDS SUMMARY | 2024-09-05 10:52 | XMS_ITS | Encounter Summary ---
Author Organization [facility] Address [address] [place] [address] Care Team Providers Care Assembler Finger Buffs Name Role Phone Caitlyn Bowie MD Primary Care Provider [phone]- [phone] Encounter Details Date Type Department Care Team (Late st Contact Info) Description 06/07/2017 Scanned Document [facility] Health Information Management [address] [place] [address] External, Provider Social History Tobacco Use Types [...] 09/30/2024 8:00 PM EDT Procedure visit [facility] [address] [place] [address] [address] [place] [phone] 10/31/2024 1:00 PM EDT Telemedicine Cancer Center at [facility] 240 [facility] Building [address] [place], [place] [phone] Ronald Mills MD 240 [facility] A1 [place] [address] documented as of this encounter [...] as of this encounter Care Teams Assembler Finger Buffs Relationship Specialty Start Date End Date Caitlyn Bowie MD 3400 [facility] 1 [place] [address] PCP - General Internal Medicine 05/06/21 Henry Kelly MD Pulmonary Department 175 [facility], [address] [place] [address] Physician Pulmonary Disease 09/06/17 06/22/20 documented as of this encounter
--- OUTSIDE RECORDS SUMMARY | 2024-09-05 10:52 | XMS_ITS | Encounter Summary ---
Author Organization [facility] Address [address] [place] [address] Care Team Providers Care Flat Finisher Name Role Phone Brennan Burnett MD Primary Care Provider [phone] Reason for Visit * Reason Onset Date Comments returning pt call 08/19/2024 Encounter Details Date Type Department Care Team (Late st Contact Info) Description 08/19/2024 Telephone [facility] Speech Therapy [address] [address] Daphne Alarcon, [employer]OST[employer] PARENT returning pt call Social History Tobacco Use [...] call about receiving a copy of her [employer] evaluation. She has called medical records and was not able to reach an employee. She does not use [employer] and is requesting a copy of her records. Left her VM with information to complete medical release form (can be emailed or mailed) and then how to submit completed form. documented in this encounter Plan of Treatment Upcoming Encounters Date Type Department Care Team (Late st Contact Info) Description 09/09/2024 3:30 PM EST Treatment [facility] Speech Therapy [address] [place] [phone] Daphne Alarcon, FOST[employer] PARENT documented as of this encounter Goals Goal Patient Goal Type Associated Problems Recent Progress Patient-Stated? Author ST LTG General No Daphne Alarcon, F[employer] PARENT Note: Pt will improve cognitive linguistic function to participate and communicate in iADLs mod I ST STGs General No Daphne Alarcon, F[employer] PARENT Note: Pt will participate with development of [...] on filedocumented in this encounter Care Teams Flat Finisher Relationship Specialty Start Date End Date Brennan Burnett MD [address] [place] [address] PCP - General 05/06/24 documented as of this encounter
--- OUTSIDE RECORDS SUMMARY | 2024-09-05 10:52 | XMS_ITS | Encounter Summary ---
Author Organization [facility] Address [address] [place] [address] Care Team Providers Care Broke Beater Name Role Phone Caitlyn Bowie MD Primary Care Provider [phone]- [phone] Encounter Details Date Type Department Care Team (Late st Contact Info) Description 04/26/2017 Scanned Document Cardiovascular Medicine at [address] [address] System, Provider Not In Social History Tobacco [...] Description 09/30/2024 8:00 PM EDT Procedure visit [facility] [address] [place] [address] [address] [place] [phone] 10/31/2024 1:00 PM EDT Telemedicine Cancer Center at [facility] 240 [facility] Building [address] [place], [place] [phone] Ronald Mills MD 240 [facility] A1 [place] [address] documented as of this encounter [...] documented as of this encounter Care Teams Broke Beater Relationship Specialty Start Date End Date Caitlyn Bowie MD [address] [facility] [address] [place] [address] PCP - General Internal Medicine 05/06/21 Henry Kelly MD Pulmonary Department 175 [facility], [address] [place] [address] Physician Pulmonary Disease 09/06/17 06/22/20 documented as of this encounter
--- OUTSIDE RECORDS SUMMARY | 2024-09-05 10:52 | XMS_ITS | Encounter Summary ---
Author Organization [facility] and [facility] Address [address] [place] [phone] Care Team Providers Care Clinical Data Associate Name Role Phone Caitlyn Bowie MD Primary Care Provider +1- [phone] Encounter Details Date Type Department Care Team (Late st Contact Info) Description 06/27/2019 Scanned Document Onco-Oncology Program at [address] [place] [address] Norma Renee MD [address] [place] [address] [address] [place] [phone] Social History Tobacco Use Types Packs/Day Years [...] Description 09/30/2024 8:00 PM EDT Procedure visit [facility] [address] [place] [phone] 10/31/2024 1:00 PM EDT Telemedicine Cancer Center at [address] [place], [place] [address] Ronald Mills MD 240 [facility] Max [address] [place] [address] documented as of this encounter Visit Diagnoses Not on filedocumented in this encounter Additional Health Concerns Infection Onset Date Last Indicated Resolved Time COVID-19 03/05/2022 03/05/2022 03/15/2022 7:18 PM EDT Assessment Noted Time PHQ-9 Depression Total Score: 2 11/07/19 19 2:06 PM EDT documented as of this encounter Care Teams Clinical Data Associate Relationship Specialty Start Date End Date Caitlyn Bowie MD 3400 [facility] 1 [place] [address] PCP - General Internal Medicine 05/06/21 Henry Kelly MD Pulmonary Department [address] [place] [address], [address] [place] [address] Physician Pulmonary Disease 09/06/17 06/22/20 documented as of this encounter
--- OUTSIDE RECORDS SUMMARY | 2024-09-05 10:52 | XMS_ITS | Encounter Summary ---
Author Organization [facility] Address [address] [place] [address] Care Team Providers Care Standards Analyst Name Role Phone Cristofer Hope MD Primary Care Provider Victorino Read MD Primary Care Provider UnavailSharon Kimbrough Primary Care Provider Unava ilBrennan Newman MD Primary Care Provider Unavailab Hayden Montes MD Unavailable [phone] Pallavi Flood NP Unavailable [phone] Cailtyn Bowie MD Primary Care Provider Unava chhaya Encounter Details Date Type Department Care Team Description 06/12/2017 Transfer Records Medical Records 4 [place] [address] Abstract, Provider Social History Tobacco Use Types [...] on filedocumented in this encounter Care Teams Standards Analyst Relationship Specialty Start Date End Date Cristofer Hope MD PCP - General Internal Medicine 05/16/17 12/20/17 Victorino Martin MD PCP - General Internal Medicine 12/21/17 08/01/18 Sharon Vides PCP - General Internal Medicine 08/02/18 05/26/20 Brennan Burnett MD PCP - General Internal Medicine 05/27/20 12/07/21 Caitlyn Bowie MD [address] [place] [address] PCP - General Internal Medicine 12/08/21 Hayden Shah MD [address] [place], [place] [phone] Specialist Cardiovascular Disease 09/01/20 Pallavi Flood NP [address] [place], [place] [address] Cardiology 09/01/20 documented as of this encounter
--- OUTSIDE RECORDS SUMMARY | 2024-09-05 10:52 | XMS_ITS | Encounter Summary ---
Author Organization [facility] Address [address] [place] [address] Care Team Providers Care Marketing Operations Associate Name Role Phone Victorino Martin MD Primary Care Provider UnavailSharon Kimbrough Primary Care Provider Unava ilable Brennan Burnett MD Primary Care Provider Unavailab Hayden Montes MD Unavailable [phone] Pallavi Flood NP Unavailable [phone] Caitlyn Bowie MD Primary Care Provider Unava chhaya Reason for Visit * Reason Onset Date Comments Medical Records 05/10/2018 Encounter Details Date Type Department Care Team Description 05/10/2018 Telephone Pulmonology - [address] [place] [address] Henry Kelly MD Medical Records [...] the one that she had done at [facility] was not in the records, nor was the information about all the times that she had pnuemonia. She wants to make sure thatyou meant to give her two copies of the same procedure. documented in this encounter Plan of Treatment Not on file documented as of this encounter Visit Diagnoses Not on filedocumented in this encounter Care Teams Marketing Operations Associate Relationship Specialty Start Date End Date Victorino Martin MD PCP - General Internal Medicine 12/21/17 08/01/18 Sharon Vdies PCP - General Internal Medicine 08/02/18 05/26/20 Brennan Burnett MD PCP - General Internal Medicine 05/27/20 12/07/21 Caitlyn Bowie MD [address] [place] [address] PCP - General Internal Medicine 12/08/21 Hayden Shah MD [address] [place] [address] Specialist Cardiovascular Disease 09/01/20 Pallavi Flood NP [address] [place] [address] Cardiology 09/01/20 documented as of this encounter
--- OUTSIDE RECORDS SUMMARY | 2024-09-05 10:52 | XMS_ITS | Encounter Summary ---
Author Organization [facility] Address [address] [place] [phone] Care Team Providers Care Assistant Professor Of Art Name Role Phone Caitlyn Bowie MD Primary Care Provider [phone]- [phone] Encounter Details Date Type Department Care Team (Late st Contact Info) Description 07/12/2019 Scanned Document Onco-Oncology Program at [address] [place] [address] Norma Renee MD [address] [place] [address] 2 [place] [phone] Social History Tobacco Use Types Packs/Day Years [...] Description 09/30/2024 8:00 PM EDT Procedure visit [facility] [address] [place] [phone] 10/31/2024 1:00 PM EDT Telemedicine Cancer Center at [address] [place], [place] [address] Ronald Mills MD 240 [facility] [address] [place] [address] documented as of this encounter Visit Diagnoses Not on filedocumented in this encounter Additional Health Concerns Infection Onset Date Last Indicated Resolved Time COVID-19 03/05/2022 03/05/2022 03/15/2022 7:18 PM EDT Assessment Noted Time PHQ-9 Depression Total Score: 2 11/07/19 19 2:06 PM EDT documented as of this encounter Care Teams Assistant Professor Of Art Relationship Specialty Start Date End Date Caitlyn Bowie MD 3400 [facility] 1 [place] [address] PCP - General Internal Medicine 05/06/21 Henry Kelly MD Pulmonary Department [address] [place] [address], [address] [place] [address] Physician Pulmonary Disease 09/06/17 06/22/20 documented as of this encounter
--- OUTSIDE RECORDS SUMMARY | 2024-09-05 10:52 | XMS_ITS | Encounter Summary ---
Author Organization [facility] and [facility] Address [address] [place] [address] Care Team Providers Care Career Technical Education Teacher Name Role Phone Caitlyn Bowie MD Primary Care Provider [phone]- [phone] Encounter Details Date Type Department Care Team (Late st Contact Info) Description 08/29/2019 Scanned Document Cancer Center at [address] [address] External, Provider Social History Tobacco Use Types [...] Description 09/30/2024 8:00 PM EDT Procedure visit [facility] [address] [place] [address] [place] [phone] 10/31/2024 1:00 PM EDT Telemedicine Cancer Center at [address] [place] [address] [place] [address] Ronald Mills MD [address] [address] documented as of this encounter [...] as of this encounter Care Teams Career Technical Education Teacher Relationship Specialty Start Date End Date Caitlyn Bowie MD 3400 [facility] [address] 1 [place] [address] PCP - General Internal Medicine 05/06/21 Henry Kelly MD Pulmonary Department [address] [place] [address], [address] [place] [address] Physician Pulmonary Disease 09/06/17 06/22/20 documented as of this encounter
--- OUTSIDE RECORDS SUMMARY | 2024-09-05 10:52 | XMS_ITS | Encounter Summary ---
Author Organization [facility] and [facility] Address [address] [place] [address] Care Team Providers Care Flood Control Engineer Name Role Phone Caitlyn Bowie MD Primary Care Provider [phone]- [phone] Encounter Details Date Type Department Care Team (Late st Contact Info) Description 03/01/2017 Scanned Document Onco-Oncology Program at [address] [address] Norma Renee MD [address] [place] [phone] Social History Tobacco Use Types Packs/Day Years [...] Description 09/30/2024 8:00 PM EDT Procedure visit [facility] [address] [place] [address] [address] [place] [address] 10/31/2024 1:00 PM EDT Telemedicine Cancer Center at [address] [place], [place] [address] Ronald Mills MD 240 [facility] [address] [place] [address] documented as of this encounter Visit Diagnoses Not on filedocumented in this encounter Additional Health Concerns Infection Onset Date Last Indicated Resolved Time COVID-19 03/05/2022 03/05/2022 03/15/2022 7:18 PM EDT documented as of this encounter Care Teams Flood Control Engineer Relationship Specialty Start Date End Date Caitlyn Bowie MD 3400 [facility] 1 [place] [address] PCP - General Internal Medicine 05/06/21 Henry Kelly MD Pulmonary Department [address] [place] [address], [address] [place] [address] Physician Pulmonary Disease 09/06/17 06/22/20 documented as of this encounter
--- OUTSIDE RECORDS SUMMARY | 2024-09-05 10:52 | XMS_ITS | Encounter Summary ---
Author Organization [facility] Address [address] [place] [address] Care Team Providers Care Civil Engineering Draftsperson Name Role Phone Victorino Martin MD Primary Care Provider UnavailSharon Kimbrough Primary Care Provider Unava ilable Brennan Burnett MD Primary Care Provider Unavailab Hayden Montes MD Unavailable [phone] Pallavi Flood NP Unavailable [phone] Caitlyn Bowie MD Primary Care Provider Unava chhaya Reason for Visit * Reason Comments E-prescribe Rx Request Encounter Details Date Type Department Care Team Description 04/28/2018 Refill Pulmonology [address] [place] [address] Henry Kelly MD E-prescribe Rx [...] * Telephone Encounter - Ace Patel - 04/30/2018 9:00 AM EDT Patient would like script to [...] NO Patients current insurance carrier is: Payor: MEDICARE-[employer] / Plan[place] / Product Type: MEDICARE [id number] documented in this encounter Plan of Treatment Not on file documented as of this encounter Visit Diagnoses Not on filedocumented in this encounter Care Teams Civil Engineering Draftsperson Relationship Specialty Start Date End Date Victorino Martin MD PCP - General Internal Medicine 12/21/17 08/01/18 Sharon Vides PCP - General Internal Medicine 08/02/18 05/26/20 Brennan Burnett MD PCP - General Internal Medicine 05/27/20 12/07/21 Caitlyn Bowie MD [address] [place] [address] PCP - General Internal Medicine 12/08/21 Hayden Shah MD [address] [place] [phone] Specialist Cardiovascular Disease 09/01/20 Pallavi Flood NP [address] [place] [address] Cardiology 09/01/20 documented as of this encounter
--- OUTSIDE RECORDS SUMMARY | 2024-09-05 10:52 | XMS_ITS | Encounter Summary ---
Author Organization [facility] Address [address] [place] [address] Care Team Providers Care Business Trainer Name Role Phone Victorino Martin MD Primary Care Provider Sharon Odonnell Primary Care Provider Brennan Castro MD Primary Care Provider UnavailHayden Fernandez MD Unavailable [phone] Pallavi Flood NP Unavailable [phone] Caitlyn Bowie MD Primary Care Provider Johnathon shaver Encounter Details Date Type Department Care Team Description 02/07/2018 Channel Manager Report Medical Records [address] [place] [address] Victorino Martin MD Social History Tobacco Use [...] filedocumented in this encounter Care Teams Business Trainer Relationship Specialty Start Date End Date Victorino Martin MD PCP - General Internal Medicine 12/21/17 08/01/18 Sharon Vides PCP - General Internal Medicine 08/02/18 05/26/20 Brennan Burnett MD PCP - General Internal Medicine 05/27/20 12/07/21 Caitlyn Bowie MD [address] [place] [address] PCP - General Internal Medicine 12/08/21 Hayden Shah MD [address] [place] [phone] Specialist Cardiovascular Disease 09/01/20 Pallavi Flood NP [address] [place] [phone] Cardiology 09/01/20 documented as of this encounter
--- OUTSIDE RECORDS SUMMARY | 2024-09-05 10:52 | XMS_ITS | Encounter Summary ---
Author Organization [facility] Address [address] [place] [address] Care Team Providers Care Network Support Administrator Name Role Phone Victorino Martin MD Primary Care Provider UnavailSharon Kimbrough Primary Care Provider Unava ilable Brennan Burnett MD Primary Care Provider Unavailab Hayden Montes MD Unavailable [phone] Pallavi Flood NP Unavailable [phone] Caitlyn Bowie MD Primary Care Provider Unava ilable Reason for Visit * Reason Onset Date Comments other 02/06/2018 Encounter Details Date Type Department Care Team Description 02/06/2018 Telephone Pulmonology - [address] [place] [address] Henry Kelly MD other Social [...] on filedocumented in this encounter Care Teams Network Support Administrator Relationship Specialty Start Date End Date Victorino Martin MD PCP - General Internal Medicine 12/21/17 08/01/18 Sharon Vides PCP - General Internal Medicine 08/02/18 05/26/20 Brennan Burnett MD PCP - General Internal Medicine 05/27/20 12/07/21 Caitlyn Bowie MD [address] [place] [address] PCP - General Internal Medicine 12/08/21 Hayden Shah MD [address] [place] [address] Specialist Cardiovascular Disease 09/01/20 Pallavi Flood NP [address] [place] [address] Cardiology 09/01/20 documented as of this encounter
--- OUTSIDE RECORDS SUMMARY | 2024-09-05 10:52 | XMS_ITS | Encounter Summary ---
Author Organization [facility] Address [address] [place] [address] Care Team Providers Care Log Getter Name Role Phone Victorino Martin MD Primary Care Provider Sharon Odonnell Primary Care Provider Brennan Castro MD Primary Care Provider UnavailHayden Fernandez MD Unavailable [phone] Pallavi Flood NP Unavailable [phone] Caitlyn Bowie MD Primary Care Provider Johnathon shaver Encounter Details Date Type Department Care Team Description 01/28/2018 [facility] Medical Records [address] [place] [address] Arianne Sigala MD Social History Tobacco Use [...] on filedocumented in this encounter Care Teams Log Getter Relationship Specialty Start Date End Date Victorino Martin MD PCP - General Internal Medicine 12/21/17 08/01/18 Sharon Vides PCP - General Internal Medicine 08/02/18 05/26/20 Brennan Burnett MD PCP - General Internal Medicine 05/27/20 12/07/21 Caitlyn Bowie MD [address] [place] [address] PCP - General Internal Medicine 12/08/21 Hayden Shah MD [address] [place], [place] [phone] Specialist Cardiovascular Disease 09/01/20 Pallavi Flood NP [address] [place] [phone] Cardiology 09/01/20 documented as of this encounter
--- OUTSIDE RECORDS SUMMARY | 2024-09-05 10:52 | XMS_ITS | Encounter Summary ---
Author Organization [facility] Address [address] [place] [address] Care Team Providers Care Legal Services Manager Name Role Phone Caitlyn Bowie MD Primary Care Provider [phone]- [phone] Encounter Details Date Type Department Care Team (Late st Contact Info) Description 07/26/2012 Abstract [facility] Health Information Management [address] [place] [address] [place], Primary Care [address] [place] [address] Social History Tobacco Use Types Packs/Day Years [...] Description 09/30/2024 8:00 PM EDT Procedure visit [facility] [address] [place] [address] [address] [place] [address] 10/31/2024 1:00 PM EDT Telemedicine Cancer Center at [facility] [address] [facility] Building [address] [place], [place] [address] Ronald Mills MD 240 [facility] [address] [place] [address] documented as of this encounter Visit Diagnoses Not on filedocumented in this encounter Additional Health Concerns Infection Onset Date Last Indicated Resolved Time COVID-19 03/05/2022 03/05/2022 03/15/2022 7:18 PM EDT documented as of this encounter Care Teams Legal Services Manager Relationship Specialty Start Date End Date Caitlyn Bowie MD 34[address] [facility] 1 [place] [address] PCP - General Internal Medicine 05/06/21 Henry Kelly MD Pulmonary Department [address] [facility], [address] [place] [address] Physician Pulmonary Disease 09/06/17 06/22/20 documented as of this encounter
--- OUTSIDE RECORDS SUMMARY | 2024-09-05 10:52 | XMS_ITS | Encounter Summary ---
Author Organization [facility] Address [address] [place] [address] Care Team Providers Care Director Of Women'S Services Name Role Phone Caitlyn Bowie MD Primary Care Provider [phone]- [phone] Encounter Details Date Type Department Care Team (Late st Contact Info) Description 07/01/2019 Scanned Document Onco-Oncology Program at [address] [place] [address] Norma Renee MD [address] [place] [address] 2 [place] [phone] Social History Tobacco Use Types Packs/Day Years [...] Description 09/30/2024 8:00 PM EDT Procedure visit [facility] [address] [place] [phone] 10/31/2024 1:00 PM EDT Telemedicine Cancer Center at [address] [place], [place] [address] Ronald Mills MD 240 [facility] [address] [place] [address] documented as of this encounter Visit Diagnoses Not on filedocumented in this encounter Additional Health Concerns Infection Onset Date Last Indicated Resolved Time COVID-19 03/05/2022 03/05/2022 03/15/2022 7:18 PM EDT Assessment Noted Time PHQ-9 Depression Total Score: 2 11/07/19 19 2:06 PM EDT documented as of this encounter Care Teams Director Of Women'S Services Relationship Specialty Start Date End Date Caitlyn Bowie MD 3400 [facility] 1 [place] [address] PCP - General Internal Medicine 05/06/21 Henry Kelly MD Pulmonary Department [address] [place] [address], [address] [place] [address] Physician Pulmonary Disease 09/06/17 06/22/20 documented as of this encounter
--- OUTSIDE RECORDS SUMMARY | 2024-09-05 10:52 | XMS_ITS | Encounter Summary ---
Author Organization [facility] Address [address] [place] [address] Care Team Providers Care Laboratory Mechanic Helper Name Role Phone Victorino Martin MD Primary Care Provider UnavailSharon Kimbrough Primary Care Provider Unava ilable Brennan Burnett MD Primary Care Provider Unavailab Hayden Montes MD Unavailable Pallavi Flood NP Unavailable [phone]- [phone] Caitlyn Bowie MD Primary Care Provider Unava chhaya Reason for Visit * Reason Onset Date Comments Faxed Refill 02/05/2018 Encounter Details Date Type Department Care Team Description 02/05/2018 Telephone Pulmonology - [address] [place] [address] Henry Kelly MD Faxed Refill [...] No Patients current insurance carrier is: Payor: [employer] / Plan: [employer] / Product Type: MEDICARE [id number] documented in this encounter Plan of Treatment Not on file documented as of this encounter Visit Diagnoses Diagnosis Mixed simple and mucopurulent chronic bronchitis (HCC) Other chronic bronchitis documented in this encounter Care Teams Laboratory Mechanic Helper Relationship Specialty Start Date End Date Victorino Martin MD PCP - General Internal Medicine 12/21/17 08/01/18 Sharon Vides PCP - General Internal Medicine 08/02/18 05/26/20 Brennan Burnett MD PCP - General Internal Medicine 05/27/20 12/07/21 Caitlyn Bowie MD [address] [place] [address] PCP - General Internal Medicine 12/08/21 Hayden Shah MD [address] [place] [address] Specialist Cardiovascular Disease 09/01/20 Pallavi Flood, ALON [address] [place] [address] Cardiology 09/01/20 documented as of this encounter
--- OUTSIDE RECORDS SUMMARY | 2024-09-05 10:52 | XMS_ITS | Encounter Summary ---
Author Organization [facility] Address [address] [place] [address] Care Team Providers Care Surgical Tech Name Role Phone Caitlyn Bowie MD Primary Care Provider [phone]- [phone] Encounter Details Date Type Department Care Team (Late st Contact Info) Description 02/21/2017 Scanned Document [facility] Health Information Management [address] [place] [address] External, Provider Social History Tobacco Use Types [...] 09/30/2024 8:00 PM EDT Procedure visit [facility] [address] [place] [address] [address] [place] [address] 10/31/2024 1:00 PM EDT Telemedicine Cancer Center at [facility] 240 [facility] Building [address] [place], [place] [address] Ronald Mills MD [address] [facility] [address] [place] [phone] documented as of this encounter Procedures Procedure [...] documented as of this encounter Care Teams Surgical Tech Relationship Specialty Start Date End Date Caitlyn Bowie MD 3400 [facility] 1 [place] [address] PCP - General Internal Medicine 05/06/21 Henry Kelly MD Pulmonary Department 175 [facility], [address] [place] [address] Physician Pulmonary Disease 09/06/17 06/22/20 documented as of this encounter
--- OUTSIDE RECORDS SUMMARY | 2024-09-05 10:52 | XMS_ITS | Encounter Summary ---
Author Organization [facility] Address [address] [place] [address] Care Team Providers Care Vp Software Engineering Name Role Phone Victorino Martin MD Primary Care Provider Sharon Odonnell Primary Care Provider Brennan Castro MD Primary Care Provider UnavailHayden Fernandez MD Unavailable [phone] Pallavi Flood NP Unavailable [phone]- [phone] Caitlyn Bowie MD Primary Care Provider Johnathon shaver Encounter Details Date Type Department Care Team Description 01/22/2018 Ball Warper Tender Report Medical Records [address] [place] [address] Abstract, Provider Social History Tobacco Use Types [...] on filedocumented in this encounter Care Teams Vp Software Engineering Relationship Specialty Start Date End Date Victorino Martin MD PCP - General Internal Medicine 12/21/17 08/01/18 Sharon Vides PCP - General Internal Medicine 08/02/18 05/26/20 Brennan Burnett MD PCP - General Internal Medicine 05/27/20 12/07/21 Caitlyn Bowie MD [address] [place] [address] PCP - General Internal Medicine 12/08/21 Hayden Shah MD [address] [place] [address] [phone] Specialist Cardiovascular Disease 09/01/20 Pallavi Flood NP [address] [place], [place] [phone] Cardiology 09/01/20 documented as of this encounter
--- OUTSIDE RECORDS SUMMARY | 2024-09-05 10:52 | XMS_ITS | Encounter Summary ---
Author Organization [facility] Address [address] [place] [address] Care Team Providers Care Community Service Director Name Role Phone Caitlyn Bowie MD Primary Care Provider +1- [phone] Encounter Details Date Type Department Care Team (Late st Contact Info) Description 06/21/2012 Abstract Head & Neck Cancers Program at [address] [address] Mikel Lloyd MD [address] [place] [phone] (Fax) Social History Tobacco Use Types Packs/Day [...] 09/30/2024 8:00 PM EDT Procedure visit [facility] [address] [place] [address] [address] [place] [phone] 10/31/2024 1:00 PM EDT Telemedicine Cancer Center at [address] [place] [address] Ronald Mills MD [address] [place] [address] [address] [place] [address] documented as of this encounter Visit Diagnoses Not on filedocumented in this encounter Additional Health Concerns Infection Onset Date Last Indicated Resolved Time COVID-19 03/05/2022 03/05/2022 03/15/2022 7:18 PM EDT documented as of this encounter Care Teams Community Service Director Relationship Specialty Start Date End Date Caitlyn Bowie MD 3400 [facility] 1 [place] [address] PCP - General Internal Medicine 05/06/21 Henry Kelly MD Pulmonary Department [address] [facility], [address] [place] [address] Physician Pulmonary Disease 09/06/17 06/22/20 documented as of this encounter
--- OUTSIDE RECORDS SUMMARY | 2024-09-05 10:52 | XMS_ITS | Encounter Summary ---
Author Organization [facility] Address [address] [place] [address] Care Team Providers Care Carpet Inspector Name Role Phone Brennan Burnett MD Primary Care Provider [phone] Encounter Details Date Type Department Care Team (Late st Contact Info) Description 08/26/2024 10:30 AM EST Telemedicine [facility] [address] [facility] [address] [place] [phone] Ayanna Jaffe MD 175 [facility] [address] [place] [phone] Anxiety (Primary Dx); Memory change; Gait abnormality; [...] which they are responsible for. Patients Location: [facility]: Jovana Malik is a 79 y.o. [...] with sleep she restarted She saw her mammography technician and will refer to sleep study she wants to go to [facility] 79 yo female with PMH Pulmonary HTN , She does have coronary disease but nothing high-grade and never had percutaneous coronary invention or heart surgery leg bypass. 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 The majority of the actual [id number] visit was spent counseling the patient with respect to the current neurological picture. Ayanna Jaffe MD 33 documented in this encounter Plan of Treatment Upcoming Encounters Date Type Department Care Team (Late st Contact Info) Description 09/09/2024 3:30 PM EST Treatment [facility] Speech Therapy [address] [place] [phone] Daphne Alarcon, FIRE CONTROL MECHANIC documented as of this encounter Goals Goal Patient Goal Type Associated Problems Recent Progress Patient-Stated? Author ST LTG General No Daphne Alarcon, FIRE CONTROL MECHANIC Note: Pt will improve cognitive linguistic function to participate and communicate in iADLs mod I ST STGs General No Daphne Alarcon, FIRE CONTROL MECHANIC Note: Pt will participate with development of [...] as of this encounter Care Teams Carpet Inspector Relationship Specialty Start Date End Date Brennan Burnett MD [address] [place] [address] PCP - General 05/06/24 documented as of this encounter
--- OUTSIDE RECORDS SUMMARY | 2024-09-05 10:53 | XMS_ITS | Encounter Summary ---
Author Organization [facility] Address [address] [place] [address] Care Team Providers Care Pipe Fitter Apprentice Name Role Phone Sharon Vides Primary Care Provider Unava ilable Brennan Burnett MD Primary Care Provider Unavailab Hayden Montes MD Unavailable [phone] Pallavi Flood NP Unavailable [phone] Caitlyn Bowie MD Primary Care Provider Unava ilable Reason for Visit * Reason Onset Date Comments other 12/13/2019 Encounter Details Date Type Department Care Team Description 12/13/2019 Telephone General Surgery [address] [address] Norma Mendoza MD [address] [place] [address] [phone] other Social History Tobacco Use Types Packs/Day [...] and put pt in with [facility]-- opening [id number]-- pt said very painful- possibly infected and [...] on filedocumented in this encounter Care Teams Pipe Fitter Apprentice Relationship Specialty Start Date End Date Sharon Vides PCP - General Internal Medicine 08/02/18 05/26/20 Brennan Burnett MD PCP - General Internal Medicine 05/27/20 12/07/21 Caitlyn Bowie MD [address] [place] [address] PCP - General Internal Medicine 12/08/21 Hayden Shah MD [address] [place] [address] Specialist Cardiovascular Disease 09/01/20 Pallavi Flood NP [address] [place] [address] Cardiology 09/01/20 documented as of this encounter
--- OUTSIDE RECORDS SUMMARY | 2024-09-05 10:53 | XMS_ITS | Encounter Summary ---
Author Organization [facility] Address [address] [place] [address] Care Team Providers Care Collar Runner Name Role Phone Caitlyn Bowie MD Primary Care Provider [phone] Encounter Details Date Type Department Care Team (Late st Contact Info) Description 08/09/2017 Scanned Document Cardiovascular Medicine at [address] [address] System, Provider Not In Social History Tobacco [...] Description 09/30/2024 8:00 PM EDT Procedure visit [facility] [address] [place] [address] [address] [place] [phone] 10/31/2024 1:00 PM EDT Telemedicine Cancer Center at [address] [place], [place] [phone] Ronald Mills MD [address] [place] [address] [address] [place] [address] documented as of this encounter [...] documented as of this encounter Care Teams Collar Runner Relationship Specialty Start Date End Date Caitlyn Bowie MD [address] [facility] 1 [place] [address] PCP - General Internal Medicine 05/06/21 Henry Kelly MD Pulmonary Department 175 [facility] [place] [facility], [address] [place] [address] Physician Pulmonary Disease 09/06/17 06/22/20 documented as of this encounter
--- OUTSIDE RECORDS SUMMARY | 2024-09-05 10:53 | XMS_ITS | Encounter Summary ---
Author Organization [facility] Address [address] [place] [address] Care Team Providers Care Tax Audit Manager Name Role Phone Caitlyn Bowie MD Primary Care Provider [phone] Encounter Details Date Type Department Care Team (Late Contact Info) Description 04/11/2021 Scanned Document [facility] Health Information Management [address] [place] [address] External, Provider Social History Tobacco Use Types [...] Description 09/30/2024 8:00 PM EDT Procedure visit [facility] [address] [place] [address] [address] [place] [phone] 10/31/2024 1:00 PM EDT Telemedicine Cancer Center at [facility] 240 [facility] [address] [place] [address] Ronald Mills MD 240 [facility] [address] [place] [address] documented as of this encounter Visit Diagnoses Not on filedocumented in this encounter Additional Health Concerns Infection Onset Date Last Indicated Resolved Time COVID-19 03/05/2022 03/05/2022 03/15/2022 7:18 PM EDT Assessment Noted Time PHQ-9 Depression Total Score: 2 11/07/19 19 2:06 PM EDT documented as of this encounter Care Teams Tax Audit Manager Relationship Specialty Start Date End Date Caitlyn Bowie MD [address] [address] PCP - General Internal Medicine 05/06/21 documented as of this encounter
--- OUTSIDE RECORDS SUMMARY | 2024-09-05 10:53 | XMS_ITS | Encounter Summary ---
Author Organization [facility] Address [address] [place] [address] Care Team Providers Care Lesson Instructor Name Role Phone Caitlyn Bowie MD Primary Care Provider [phone]- [phone] Encounter Details Date Type Department Care Team (Late st Contact Info) Description 03/01/2021 Scanned Document INTERFACE DEFAULT [address] [place] [address] System, Provider Not In Social History Tobacco [...] Description 09/30/2024 8:00 PM EDT Procedure visit [facility] [address] [place] [address] [address] [place] [phone] 10/31/2024 1:00 PM EDT Telemedicine Cancer Center at [facility] 240 [facility] [address] [place] [address] Ronald Mills MD 240 [facility] [address] [place] [phone] documented as of this encounter Visit Diagnoses Not on filedocumented in this encounter Additional Health Concerns Infection Onset Date Last Indicated Resolved Time COVID-19 03/05/2022 03/05/2022 03/15/2022 7:18 PM EDT Assessment Noted Time PHQ-9 Depression Total Score: 2 11/07/19 19 2:06 PM EDT documented as of this encounter Care Teams Lesson Instructor Relationship Specialty Start Date End Date Caitlyn Bowie MD [address] [address] PCP - General Internal Medicine 05/06/21 documented as of this encounter
--- OUTSIDE RECORDS SUMMARY | 2024-09-05 10:53 | XMS_ITS | Encounter Summary ---
Author Organization [facility] Address [address] [place] [address] Care Team Providers Care Manager Of Revenue Name Role Phone Brennan Burnett MD Primary Care Provider Unavailab Hayden Montes MD Unavailable [phone] Pallavi Flood NP Unavailable [phone] Caitlyn Bowie MD Primary Care Provider Unava ilable Encounter Details Date Type Department Care Team Description 06/02/2020 Car Varnisher Report Medical Records [address] [place] [address] Abstract, Provider Social History Tobacco Use Types [...] filedocumented in this encounter Care Teams Manager Of Revenue Relationship Specialty Start Date End Date Brennan Burnett MD PCP - General Internal Medicine 05/27/20 12/07/21 Caitlyn Bowie MD [address] [place] [address] PCP - General Internal Medicine 12/08/21 Hayden Shah MD [address] [place] [address] Specialist Cardiovascular Disease 09/01/20 Pallavi Flood NP [address] [place] [phone] Cardiology 09/01/20 documented as of this encounter
--- OUTSIDE RECORDS SUMMARY | 2024-09-05 10:53 | XMS_ITS | Encounter Summary ---
Author Organization [facility] Address [address] [place] [address] Care Team Providers Care Construction Project Coordinator Name Role Phone Caitlyn Bowie MD Primary Care Provider [phone]- [phone] Encounter Details Date Type Department Care Team (Late st Contact Info) Description 03/24/2021 Scanned Document INTERFACE DEFAULT [address] [place] [address] System, Provider Not In Social History Tobacco [...] Description 09/30/2024 8:00 PM EDT Procedure visit [facility] [address] [place] [address] [address] [place] [phone] 10/31/2024 1:00 PM EDT Telemedicine Cancer [facility] at [facility] 240 [facility] [address] [place] [address] Ronald Mills MD 240 [facility] [address] [place] [phone] documented as of this encounter Visit Diagnoses Not on filedocumented in this encounter Additional Health Concerns Infection Onset Date Last Indicated Resolved Time COVID-19 03/05/2022 03/05/2022 03/15/2022 7:18 PM EDT Assessment Noted Time PHQ-9 Depression Total Score: 2 11/07/19 19 2:06 PM EDT documented as of this encounter Care Teams Construction Project Coordinator Relationship Specialty Start Date End Date Caitlyn Bowie MD [address] [address] PCP - General Internal Medicine 05/06/21 documented as of this encounter
--- OUTSIDE RECORDS SUMMARY | 2024-09-05 10:53 | XMS_ITS | Clinical Summary ---
Author Organization 175 [facility] Address [address] [place] [address] Phone Care Team Providers Care Well Testing Operator Name Role Phone Brennan Burnett Primary Care Provider [phone] Allergies Active Allergy Reactions Criticality Noted Date [...] 20 mg as needed by her previous optician manager which she has taken sporadically. I have asked her to take this daily to see if this improves her symptoms and she has a follow-up appointment with Dr. Shah on September 16 which she will keep. We also had a long conversation regarding the fact that she is seeing 3 different optician manager for the same problems. We informed her [...] continues to see Dr. Avalos or her optician manager at [facility]. She verbalized understanding [...] Team Description 08/26/2024 10:30 AM EST Telemedicine [facility] 175 [facility] 150 [place] [phone] Ayanna Jaffe MD Anxiety (Primary Dx); Memory change; Gait abnormality; White matter lesion of central nervous system 08/23/2024 1:20 PM EST Office Visit Gastroenterology - [address] [phone] Saima Amor, DAYTIME CAREGIVER Gastroesophageal reflux disease, unspecified whether esophagitis present (Primary Dx); Constipation, unspecified constipation type 08/19/2024 Telephone [facility] Speech Therapy [address] [place] [phone] Daphne Alarcon, MOBILE DEVELOPER returning pt call 08/08/2024 Telephone [facility] Speech Therapy [address] [phone] Daphne Alarcon, MOBILE DEVELOPER Memory Loss (Returned pt call from 08/07 about recent missed visit. Pt is not interested in in person f/u right now due to cold weather and other medical issues. She will f/u with medical team if she wants to address cognitive status in future) 07/04/2024 Telephone Gastroenterology - [address] [phone] Tim Gomes MD 07/01/2024 Telephone Gastroenterology - [address] [address] Tim Gomes MD 06/20/2024 9:30 AM EST Evaluation [facility] Speech Therapy [address] [place] [phone] Daphne Alarcon, MOBILE DEVELOPER Cognitive communication disorder (Primary Dx); White matter lesion of central nervous system; Unsp symptoms and signs w cognitive functions and awareness; Gait abnormality 06/20/2024 Plan of Care Documentation [facility] Speech Therapy [address] [address] 06/15/2024 11:51 AM EST - 06/15/2024 4:[address] [facility] [address] [place] [address] Jovana Cruz MD Pain (Primary [...] PROCEDURE: HISTORICAL TONSILLECTOMY OTHER SURGICAL HISTORY PROCEDURE: AZ RMVL LUNG XCP TOT PNEUMONECTOMY SLEEVE LOBECTOMY; [...] pathology report UPPER GASTROINTESTINAL ENDOSCOPY 05/03/2015 PROCEDURE: AZ UPPER GI ENDOSCOPY PERFORMED MITRAL CLIP PROCEDURE Medical History Medical History Date Comments Akathisia 04/15/2013 DX:Akathisia Anxiety 12/07/2016 DX:Anxiety [facility]ctasis ([facility]) 08/08/2017 DX:Bron chiectasis ([facility]) Cataract 08/26/2014 DX:Cataract Chronic obstructive pulmonar y disease ([facility]) 04/13/2017 DX:Chronic obstructive pulmo nary disease ([facility]) 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 DX:Complica cole migraine Congestive heart failure ([facility]) 04/04/2017 DX:Congestive heart failure (HCC) History of [...] Mx LLL resection, Chemo, RT, Cisplatin, Vinorelbine [phone] 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 DX:Antiphospholipid [...] Info) Description 09/09/2024 3:30 PM EST Treatment [facility] Speech Therapy [address] [address] Daphne Alarcon, MOBILE DEVELOPER Health Maintenance Due Date Last Done Comments [...] Author ST LTG General No Daphne Alarcon, MOBILE DEVELOPER Note: Pt will improve cognitive linguistic function to participate and communicate in iADLs mod I ST STGs General No Daphne Alarcon, MOBILE DEVELOPER Note: Pt will participate with development of [...] LAB HEMETOLOGY METHOD 06/15/2024 1:39 PM EST [facility] RBC 3.70(L) 3.80 - 4.80 M/mcL LAB HEMETOLOGY METHOD 06/15/2024 1:39 PM EST [facility] Hemoglobin 12.0 11.5 - 16.0 g/dL LAB HEMETOLOGY METHOD 06/15/2024 1:39 PM [facility] Hematocrit 37.5 35.0 - 47.0 % LAB HEMETOLOGY METHOD 06/15/2024 1:39 PM [facility] MCV 100.3(H) 79.0 - 98.0 FL LAB HEMETOLOGY METHOD 06/15/2024 1:39 PM [facility] MCH 32.1(H) 27.0 - 32.0 pcg LAB HEMETOLOGY METHOD 06/15/2024 1:39 PM [facility] MCHC 32.0 32.0 - 37.0 g/dL LAB HEMETOLOGY METHOD 06/15/2024 1:39 PM [facility] RDW 14.3 11.0 - 15.0 % LAB HEMETOLOGY METHOD 06/15/2024 1:39 PM [facility] Platelets 201 130 - 400 K/mcL LAB HEMETOLOGY METHOD 06/15/2024 1:39 PM [facility] MPV 11.1(H) 7.0 - 11.0 FL LAB HEMETOLOGY METHOD 06/15/2024 1:39 PM [facility] NRBC 0.0 <1.0 % LAB HEMETOLOGY METHOD 06/15/2024 1:39 PM [facility] NRBC Absolute 0.00 <0.10 K/mcL LAB HEMETOLOGY METHOD 06/15/2024 1:39 PM [facility] Neutrophils Relative 85.5 % LAB HEMETOLOGY METHOD 06/15/2024 1:39 PM [facility] Lymphocytes Relative 4.8 % LAB HEMETOLOGY METHOD 06/15/2024 1:39 PM [facility] Monocytes Relative 7.4 % LAB HEMETOLOGY METHOD 06/15/2024 1:39 PM [facility] Eosinophils Relative 1.1 % LAB HEMETOLOGY METHOD 06/15/2024 1:39 PM EST [facility] Basophils Relative 0.4 % LAB HEMETOLOGY METHOD 06/15/2024 1:39 PM EST [facility] Immature Granulocytes Relative 0.8 % LAB HEMETOLOGY METHOD 06/15/2024 1:39 PM [facility] Neutrophils Absolute 11.28(H) 1.50 - 7.00 K/mcL LAB HEMETOLOGY METHOD 06/15/2024 1:39 PM EST [facility] Lymphocytes Absolute 0.63(L) 1.00 - 5.00 K/mcL LAB HEMETOLOGY METHOD 06/15/2024 1:39 PM [facility] Monocytes Absolute 0.98 0.20 - 1.00 K/mcL LAB HEMETOLOGY METHOD 06/15/2024 1:39 PM [facility] Eosinophils Absolute 0.14 0.00 - 0.50 K/mcL LAB HEMETOLOGY METHOD 06/15/2024 1:39 PM EST [facility] Basophils Absolute 0.05 0.00 - 0.20 K/mcL LAB HEMETOLOGY METHOD 06/15/2024 1:39 PM EST [facility] Immature Granulocytes Absolute 0.11(H) 0.00 - 0.03 K/mcL LAB HEMETOLOGY METHOD 06/15/2024 1:39 PM [facility] Blood Venous blood specimen / Unknown Venipuncture / Unknown 06/15/2024 1:26 PM EST 06/15/2024 1:31 PM EST us Jovana Cruz MD LAB BLOOD ORDERABLES Final Resul t [facility] [address] [place] [address], * (ABNORMAL) Protime-INR (06/15/2024 1:26 PM EST) Protime 22.9(H) 10.6 - 13.9 sec LAB COAGULATION METHOD 06/15/2024 1:43 PM EST [facility] INR 1.8 LAB COAGULATION METHOD 06/15/2024 1:43 PM [facility] Blood Venous blood specimen / Unknown Venipuncture / Unknown 06/15/2024 1:26 PM EST 06/15/2024 1:31 PM EST us Jovana Cruz MD LAB BLOOD ORDERABLES Final Resul t [facility] [address] [place] [address], * (ABNORMAL) Comprehensive metabolic panel (06/15/2024 1:26 PM EST) [facility] Sodium 140 133 - 145 mmol/L LAB CHEMISTRY METHOD 06/15/2024 2:10 PM [facility] Potassium 4.7 3.5 - 5.5 mmol/L LAB CHEMISTRY METHOD 06/15/2024 2:10 PM [facility] Chloride 102 96 - 110 mmol/L LAB CHEMISTRY METHOD 06/15/2024 2:10 PM [facility] CO2 34(H) 21 - 32 mmol/L LAB CHEMISTRY METHOD 06/15/2024 2:10 PM [facility] Anion Gap 4 3 - 11 LAB CHEMISTRY METHOD 06/15/2024 2:10 PM [facility] Glucose 95 70 - 100 mg/dL LAB CHEMISTRY METHOD 06/15/2024 2:10 PM [facility] BUN 29(H) 5 - 25 mg/dL LAB CHEMISTRY METHOD 06/15/2024 2:10 PM [facility] Creatinine 0.95 0.50 - 1.10 mg/dL LAB CHEMISTRY METHOD 06/15/2024 2:10 PM [facility] eGFR 60 >=60 mL/min/1. 73m2 LAB CHEMISTRY METHOD 06/15/2024 2:10 PM [facility] Comment:Calculation based on the??Chronic Kidney Disease Epidemiology Collaboration (CKD-EPI) equation refit??without adjustment for race. BUN/Creatinine Ratio 30.5 LAB CHEMISTRY METHOD 06/15/2024 2:10 PM [facility] Calcium 10.1 8.5 - 10.5 mg/dL LAB CHEMISTRY METHOD 06/15/2024 2:10 PM [facility] AST (SGOT) 35 10 - 42 unit/L LAB CHEMISTRY METHOD 06/15/2024 2:10 PM [facility] ALT (SGPT) 39 10 - 60 unit/L LAB CHEMISTRY METHOD 06/15/2024 2:10 PM [facility] Alkaline Phosphatase 83 42 - 121 unit/L LAB CHEMISTRY METHOD 06/15/2024 2:10 PM [facility] Total Protein 6.4 6.0 - 8.0 g/dL LAB CHEMISTRY METHOD 06/15/2024 2:10 PM [facility] Albumin 3.3 3.2 - 5.0 g/dL LAB CHEMISTRY METHOD 06/15/2024 2:10 PM [facility] Total Bilirubin 0.4 0.0 - 1.4 mg/dL LAB CHEMISTRY METHOD 06/15/2024 2:10 PM EST [facility] Blood Venous blood specimen / Unknown Venipuncture / Unknown 06/15/2024 1:26 PM EST 06/15/2024 1:32 PM EST us Jovana Cruz MD LAB BLOOD ORDERABLES Final Resul t [facility] [address] [place] [address], * Vascular US Duplex Lower Extremity Venous Left (06/15/2024 12:24 PM EST) Anatomical Region Laterality Modality Vascular, Abdomen Ultrasound 06/15/2024 12:2 0 PM EST Impressions 06/15/2024 12:20 PM EST Impression: No evidence of deep vein thrombosis in the left femoral-popliteal venous segment. [id number] -------- FINAL REPORT -------- Dictated By: Fawn Levin Dictated Date: 06/15/2024 12:20 ET Assigned Physician: Fawn Levin Reviewed and Electronically Signed By: Fawn Levin Signed Date: 06/15/2024 12:20 ET Workstation ID: [id number] Transcribed By: Self Edit Transcribed Date: 06/15/2024 [...] vein thrombosis in the leftfemoral-popliteal venous segment. [id number] -------- FINAL REPORT -------- Dictated By: Fawn Levin Dictated Date: 06/15/2024 12:20 ET Assigned Physician: Fawn Levin Reviewed and Electronically Signed By: Fawn Levin Signed Date: 06/15/2024 12:20 ET Workstation ID: [id number] Transcribed By: Self Edit Transcribed Date: 06/15/2024 12:20 ET us Henry Carrillo DO CV VASCULAR PROCEDURES Final R esult from Last 3 Months Insurance MEDICARE [facility] Advance Directives Documents on File Type Date Recorded Patient Unix Administrator Expl anation Health Care Decision (hx) 10/18/2013 [...] (hx) 10/04/2013 AD LACEY DIRECTIVE Care Teams Well Testing Operator Relationship Specialty Start Date End Date Brennan Burnett MD [address] [place] [address] PCP - General 05/06/24
--- OUTSIDE RECORDS SUMMARY | 2024-09-05 10:53 | XMS_ITS | Encounter Summary ---
Author Organization [facility] Address [address] [place] [phone] Care Team Providers Care Diesel Mechanic Helper Name Role Phone Caitlyn Bowie MD Primary Care Provider +1- [phone] Encounter Details Date Type Department Care Team (Late st Contact Info) Description 04/02/2021 Scanned Document INTERFACE DEFAULT [address] [place] [phone] System, Provider Not In Social History Tobacco [...] Description 09/30/2024 8:00 PM EDT Procedure visit [facility] [address] [place] [address] [address] [place] [phone] 10/31/2024 1:00 PM EDT Telemedicine Cancer Center at [facility] 240 [facility] [address] [place] [address] Ronald Mills MD 240 [facility] [address] [place] [phone] documented as of this encounter Procedures Procedure [...] documented as of this encounter Care Teams Diesel Mechanic Helper Relationship Specialty Start Date End Date Caitlyn Bowie MD [address] [phone] PCP - General Internal Medicine 05/06/21 documented as of this encounter
--- OUTSIDE RECORDS SUMMARY | 2024-09-05 10:53 | XMS_ITS | Encounter Summary ---
Author Organization [facility] Address [address] [place] [address] Care Team Providers Care Front End Web Designer Name Role Phone Brennan Burnett MD Primary Care Provider Unavailab Hayden Montes MD Unavailable [phone] Pallavi Flood NP Unavailable +1- [phone] Caitlyn Bowie MD Primary Care Provider Unava ilable Encounter Details Date Type Department Care Team Description 08/18/2020 SCAN Medical Records [address] [place] [address] Brennan Burnett MD Social History Tobacco Use [...] on filedocumented in this encounter Care Teams Front End Web Designer Relationship Specialty Start Date End Date Brennan Burnett MD PCP - General Internal Medicine 05/27/20 12/07/21 Caitlyn Bowie MD [address] [place] [address] PCP - General Internal Medicine 12/08/21 Hayden Shah MD [address] [place] [address] Specialist Cardiovascular Disease 09/01/20 Pallavi Flood NP [address] [place] [address] Cardiology 09/01/20 documented as of this encounter
--- OUTSIDE RECORDS SUMMARY | 2024-09-05 10:53 | XMS_ITS | Encounter Summary ---
Author Organization [facility] and [facility] Address [address] [place] [address] Care Team Providers Care Wood Boatbuilder Apprentice Name Role Phone Caitlyn Bowie MD Primary Care Provider +1- [phone] Encounter Details Date Type Department Care Team (Late st Contact Info) Description 02/25/2021 Scanned Document INTERFACE DEFAULT [address] [place] [address] System, Provider Not In Social History Tobacco [...] EDT Procedure visit [facility] [address] [place] [address] [address] [place] [address] 10/31/2024 1:00 PM EDT Telemedicine [facility] at [facility] [address] [facility] [address] [place] [address] Ronald Mills MD 240 [facility] [address] [place] [address] documented as of this encounter Procedures Procedure [...] documented as of this encounter Care Teams Wood Boatbuilder Apprentice Relationship Specialty Start Date End Date Caitlyn Bowie MD [address] [place] [address] PCP - General Internal Medicine 05/06/21 documented as of this encounter
--- OUTSIDE RECORDS SUMMARY | 2024-09-05 10:53 | XMS_ITS | Encounter Summary ---
Author Organization [facility] and [facility] Address [address] [place] [address] Care Team Providers Care Washer Machine Name Role Phone Caitlyn Bowie MD Primary Care Provider +1- [phone] Encounter Details Date Type Department Care Team (Late st Contact Info) Description 03/14/2021 Scanned Document INTERFACE DEFAULT [address] [place] [address] System, Provider Not In Social History Tobacco [...] EDT Procedure visit [facility] [address] [place] [address] [address] [place] [address] 10/31/2024 1:00 PM EDT Telemedicine Cancer [facility] at [facility] 240 [facility] [place] [address] [place] [address] Ronald Mills MD 240 [facility] [address] [place] [address] documented as of this encounter Procedures Procedure [...] documented as of this encounter Care Teams Washer Machine Relationship Specialty Start Date End Date Caitlyn Bowie MD [address] [address] PCP - General Internal Medicine 05/06/21 documented as of this encounter
--- OUTSIDE RECORDS SUMMARY | 2024-09-05 10:53 | XMS_ITS | Encounter Summary ---
Author Organization [facility] and [facility] Address [address] [place] [address] Care Team Providers Care Match Up Person Name Role Phone Caitlyn Bowie MD Primary Care Provider +1- [phone] Encounter Details Date Type Department Care Team (Late st Contact Info) Description 03/08/2021 Scanned Document INTERFACE DEFAULT [address] [place] [address] System, Provider Not In Social History Tobacco [...] Description 09/30/2024 8:00 PM EDT Procedure visit [facility] [address] [place] [address] [address] [place] [address] 10/31/2024 1:00 PM EDT Telemedicine [facility] at [facility] 240 [facility] [address] [place] [address] Ronald Mills MD 240 [facility] [address] [place] [address] documented as of this encounter Procedures Procedure [...] documented as of this encounter Care Teams Match Up Person Relationship Specialty Start Date End Date Caitlyn Bowie MD [address] [address] PCP - General Internal Medicine 05/06/21 documented as of this encounter
--- OUTSIDE RECORDS SUMMARY | 2024-09-05 10:53 | XMS_ITS | Encounter Summary ---
Author Organization [facility] and [facility] Address [address] [place] [address] Care Team Providers Care Toy Consultant Name Role Phone Caitlyn Bowie MD Primary Care Provider +1- [phone] Encounter Details Date Type Department Care Team (Late st Contact Info) Description 03/22/2021 Scanned Document INTERFACE DEFAULT [address] [place] [address] System, Provider Not In Social History Tobacco [...] Description 09/30/2024 8:00 PM EDT Procedure visit [facility] [address] [place] [address] [address] [place] [address] 10/31/2024 1:00 PM EDT Telemedicine [facility] at [facility] 240 [facility] [address] [place] [address] Ronald Mills MD 240 [facility] [address] [place] [address] documented as of this encounter Visit Diagnoses Not on filedocumented in this encounter Additional Health Concerns Infection Onset Date Last Indicated Resolved Time COVID-19 03/05/2022 03/05/2022 03/15/2022 7:18 PM EDT Assessment Noted Time PHQ-9 Depression Total Score: 2 11/07/19 19 2:06 PM EDT documented as of this encounter Care Teams Toy Consultant Relationship Specialty Start Date End Date Caitlyn Bowie MD [address] [address] PCP - General Internal Medicine 05/06/21 documented as of this encounter
--- OUTSIDE RECORDS SUMMARY | 2024-09-05 10:53 | XMS_ITS | Encounter Summary ---
Author Organization [facility] and [facility] Address [address] [place] [address] Care Team Providers Care Automatic Packer Operator Name Role Phone Caitlyn Bowie MD Primary Care Provider +1- [phone] Encounter Details Date Type Department Care Team (Late st Contact Info) Description 02/15/2021 Scanned Document INTERFACE DEFAULT [address] [place] [address] System, Provider Not In Social History Tobacco [...] 09/30/2024 8:00 PM EDT Procedure visit [facility] [address] [place] [address] [address] [place] [address] 10/31/2024 1:00 PM EDT Telemedicine [facility] at [facility] 240 [facility] [address] [place] [address] Ronald Mills MD 240 [facility] [address] [place] [address] documented as of this encounter Visit Diagnoses Not on filedocumented in this encounter Additional Health Concerns Infection Onset Date Last Indicated Resolved Time COVID-19 03/05/2022 03/05/2022 03/15/2022 7:18 PM EDT Assessment Noted Time PHQ-9 Depression Total Score: 2 11/07/19 19 2:06 PM EDT documented as of this encounter Care Teams Automatic Packer Operator Relationship Specialty Start Date End Date Caitlyn Bowie MD [address] [address] PCP - General Internal Medicine 05/06/21 documented as of this encounter
--- OUTSIDE RECORDS SUMMARY | 2024-09-05 10:53 | XMS_ITS | Encounter Summary ---
Author Organization [facility] Address [address] [place] [address] Care Team Providers Care Body Mechanic Name Role Phone Sharon Vides Primary Care Provider Brennan Castro MD Primary Care Provider Unavailab Hayden Montes MD Unavailable [phone] Pallavi Flood NP Unavailable +1- [phone] Caitlyn Bowie MD Primary Care Provider Johnathon shaver Encounter Details Date Type Department Care Team Description 07/15/2019 Release of Information Medical Records [address] [place] [address] Abstract, Provider Social History Tobacco Use Types [...] on filedocumented in this encounter Care Teams Body Mechanic Relationship Specialty Start Date End Date Sharon Vides PCP - General Internal Medicine 08/02/18 05/26/20 Brennan Burnett MD PCP - General Internal Medicine 05/27/20 12/07/21 Caitlyn Bowie MD [address] [place] [address] PCP - General Internal Medicine 12/08/21 Hayden Shah MD [address] [place] [address] Specialist Cardiovascular Disease 09/01/20 Pallavi Flood NP [address] [place] [address] Cardiology 09/01/20 documented as of this encounter
--- OUTSIDE RECORDS SUMMARY | 2024-09-05 10:53 | XMS_ITS | Encounter Summary ---
Author Organization [facility] and [facility] Address [address] [place] [address] Care Team Providers Care Form Setter/Driver Name Role Phone Caitlyn Bowie MD Primary Care Provider +1- [phone] Encounter Details Date Type Department Care Team (Late st Contact Info) Description 03/16/2021 Scanned Document INTERFACE DEFAULT [address] [place] [address] System, Provider Not In Social History Tobacco [...] Description 09/30/2024 8:00 PM EDT Procedure visit [facility] [address] [place] [address] [address] [place] [address] 10/31/2024 1:00 PM EDT Telemedicine [facility] 240 [facility] [address] [place] [address] Ronald Mills MD 240 [facility] [address] [place] [address] documented as of this encounter Visit Diagnoses Not on filedocumented in this encounter Additional Health Concerns Infection Onset Date Last Indicated Resolved Time COVID-19 03/05/2022 03/05/2022 03/15/2022 7:18 PM EDT Assessment Noted Time PHQ-9 Depression Total Score: 2 11/07/19 19 2:06 PM EDT documented as of this encounter Care Teams Form Setter/Driver Relationship Specialty Start Date End Date Caitlyn Bowie MD [address] [address] PCP - General Internal Medicine 05/06/21 documented as of this encounter
--- OUTSIDE RECORDS SUMMARY | 2024-09-05 10:53 | XMS_ITS | Encounter Summary ---
Author Organization [facility] and [facility] Address [address] [place] [address] Care Team Providers Care Mailmaster Name Role Phone Caitlyn Bowie MD Primary Care Provider +1- [phone] Encounter Details Date Type Department Care Team (Late st Contact Info) Description 03/11/2021 Scanned Document INTERFACE DEFAULT [address] [place] [address] System, Provider Not In Social History Tobacco [...] Description 09/30/2024 8:00 PM EDT Procedure visit [facility] [address] [place] [address] [address] [place] [address] 10/31/2024 1:00 PM EDT Telemedicine [facility] at [facility] [address] [facility] [address] [place] [address] Ronald Mills MD 240 [facility] [address] [place] [address] documented as of this encounter Procedures Procedure [...] documented as of this encounter Care Teams Mailmaster Relationship Specialty Start Date End Date Caitlyn Bowie MD [address] [address] PCP - General Internal Medicine 05/06/21 documented as of this encounter
--- OUTSIDE RECORDS SUMMARY | 2024-09-05 10:53 | XMS_ITS | Encounter Summary ---
Author Organization [facility] and [facility] Address [address] [place] [address] Care Team Providers Care Service Establishment Attendant Name Role Phone Caitlyn Bowie MD Primary Care Provider +1- [phone] Encounter Details Date Type Department Care Team (Late st Contact Info) Description 04/11/2021 Scanned Document INTERFACE DEFAULT [address] [place] [address] System, Provider Not In Social History Tobacco [...] Description 09/30/2024 8:00 PM EDT Procedure visit [facility] [address] [place] [address] [address] [place] [address] 10/31/2024 1:00 PM EDT Telemedicine [facility] 240 [facility] [address] [place] [address] Ronald Mills MD 240 [facility] [address]1 [place] [address] documented as of this encounter Procedures Procedure [...] as of this encounter Care Teams Service Establishment Attendant Relationship Specialty Start Date End Date Caitlyn Bowie MD [facility] [address] [address] PCP - General Internal Medicine 05/06/21 documented as of this encounter
--- OUTSIDE RECORDS SUMMARY | 2024-09-05 10:53 | XMS_ITS | Encounter Summary ---
Author Organization [facility] and [facility] Address [address] [place] [address] Care Team Providers Care Accounts Payable Administrator Name Role Phone Caitlyn Bowie MD Primary Care Provider +1- [phone] Encounter Details Date Type Department Care Team (Late st Contact Info) Description 04/21/2021 Scanned Document INTERFACE DEFAULT [address] [place] [address] System, Provider Not In Social History Tobacco [...] Description 09/30/2024 8:00 PM EDT Procedure visit [facility] [address] [place] [address] [address] [place] [address] 10/31/2024 1:00 PM EDT Telemedicine Cancer Center at [facility] 240 [facility] [address] [place] [address] Ronald Mills MD 240 [facility] [address] [place] [address] documented as of this encounter Procedures Procedure [...] documented as of this encounter Care Teams Accounts Payable Administrator Relationship Specialty Start Date End Date Caitlyn Bowie MD [address] [address] PCP - General Internal Medicine 05/06/21 documented as of this encounter
--- OUTSIDE RECORDS SUMMARY | 2024-09-05 10:53 | XMS_ITS | Encounter Summary ---
Author Organization [facility] and [facility] Address [address] [place] [address] Care Team Providers Care Telephone Collector Name Role Phone Caitlyn Bowie MD Primary Care Provider +1- [phone] Encounter Details Date Type Department Care Team (Late st Contact Info) Description 04/10/2021 Scanned Document INTERFACE DEFAULT [address] [place] [address] System, Provider Not In Social History Tobacco [...] Description 09/30/2024 8:00 PM EDT Procedure visit [facility] [address] [place] [address] [address] [place] [address] 10/31/2024 1:00 PM EDT Telemedicine [facility] at [facility] 240 [facility] [address] [place] [address] Ronald Mills MD 240 [facility] [address] [place] [address] documented as of this encounter Procedures Procedure [...] as of this encounter Care Teams Telephone Collector Relationship Specialty Start Date End Date Caitlyn Bowie MD [address] [address] PCP - General Internal Medicine 05/06/21 documented as of this encounter
--- OUTSIDE RECORDS SUMMARY | 2024-09-05 10:53 | XMS_ITS | Encounter Summary ---
Author Organization [facility] Address [address] [place] [address] Care Team Providers Care Photograph Editor Name Role Phone Brennan Burnett MD Primary Care Provider Unavailab Hayden Montes MD Unavailable Pallavi Flood NP Unavailable +1- [phone] Caitlyn Bowie MD Primary Care Provider Unava ilable Encounter Details Date Type Department Care Team Description 08/25/2020 Medication Tech Report Medical Records [address] [place] [address] Abstract, Provider Social History Tobacco Use Types [...] on filedocumented in this encounter Care Teams Photograph Editor Relationship Specialty Start Date End Date Brennan Burnett MD PCP - General Internal Medicine 05/27/20 12/07/21 Caitlyn Bowie MD [address] [place] [address] PCP - General Internal Medicine 12/08/21 Hayden Shah MD [address] [place] [address] Specialist Cardiovascular Disease 09/01/20 Pallavi Flood NP [address] [place] [address] Cardiology 09/01/20 documented as of this encounter
--- OUTSIDE RECORDS SUMMARY | 2024-09-05 10:53 | XMS_ITS | Encounter Summary ---
Author Organization [facility] and [facility] Address [address] [place] [address] Care Team Providers Care Mold Loft Worker Name Role Phone Caitlyn Bowie MD Primary Care Provider +1- [phone] Encounter Details Date Type Department Care Team (Late st Contact Info) Description 04/13/2021 Scanned Document INTERFACE DEFAULT [address] [place] [address] System, Provider Not In Social History Tobacco [...] Description 09/30/2024 8:00 PM EDT Procedure visit [facility] [address] [place] [address] [address] [place] [address] 10/31/2024 1:00 PM EDT Telemedicine [facility] 240 [facility] [address] [place] [address] Ronald Mills MD 240 [facility] [address] [place] [address] documented as of this encounter Procedures Procedure [...] as of this encounter Care Teams Mold Loft Worker Relationship Specialty Start Date End Date Caitlyn Bowie MD [facility] [address] [address] PCP - General Internal Medicine 05/06/21 documented as of this encounter
--- OUTSIDE RECORDS SUMMARY | 2024-09-05 10:53 | XMS_ITS | Encounter Summary ---
Author Organization [facility] and [facility] Address [address] [place] [address] Care Team Providers Care Facial Operator Name Role Phone Caitlyn Bowie MD Primary Care Provider +1- [phone] Encounter Details Date Type Department Care Team (Late st Contact Info) Description 03/15/2021 Scanned Document INTERFACE DEFAULT [address] [place] [address] System, Provider Not In Social History Tobacco [...] Description 09/30/2024 8:00 PM EDT Procedure visit [facility] [address] [place] [address] [address] [place] [address] 10/31/2024 1:00 PM EDT Telemedicine [facility] at [facility] 240 [facility] [address] [place] [address] Ronald Mills MD 240 [facility] [address] [place] [address] documented as of this encounter Procedures Procedure [...] documented as of this encounter Care Teams Facial Operator Relationship Specialty Start Date End Date Caitlyn Bowie MD [address] [address] PCP - General Internal Medicine 05/06/21 documented as of this encounter
--- OUTSIDE RECORDS SUMMARY | 2024-09-05 10:53 | XMS_ITS | Encounter Summary ---
Author Organization [facility] and [facility] Address [address] [place] [address] Care Team Providers Care Counter Sales Representative Name Role Phone Caitlyn Bowie MD Primary Care Provider +1- [phone] Encounter Details Date Type Department Care Team (Late st Contact Info) Description 04/16/2021 Scanned Document INTERFACE DEFAULT [address] [place] [address] System, Provider Not In Social History Tobacco [...] Description 09/30/2024 8:00 PM EDT Procedure visit [facility] [address] [place] [address] [address] [place] [address] 10/31/2024 1:00 PM EDT Telemedicine [facility] at [facility] 240 [facility] [address] [place] [address] Ronald Mills MD 240 [facility] [address] [place] [address] documented as of this encounter Procedures Procedure [...] documented as of this encounter Care Teams Counter Sales Representative Relationship Specialty Start Date End Date Caitlyn Bowie MD [address] [address] PCP - General Internal Medicine 05/06/21 documented as of this encounter
--- OUTSIDE RECORDS SUMMARY | 2024-09-05 10:53 | XMS_ITS | Encounter Summary ---
Author Organization [facility] and [facility] Address [address] [place] [address] Care Team Providers Care Industrial Roofer Name Role Phone Caitlyn Bowie MD Primary Care Provider +1- [phone] Encounter Details Date Type Department Care Team (Late st Contact Info) Description 01/26/2018 Scanned Document [facility] Health Information Management [address] [place] [address] External, Provider Social History Tobacco Use Types [...] 09/30/2024 8:00 PM EDT Procedure visit [facility] [address] [place] [address] [address] [place] [address] 10/31/2024 1:00 PM EDT Telemedicine [facility] at [facility] 240 [facility] [address] [place], [place] [address] Ronald Mills MD 240 [facility] [address] [place] [address] documented as of this encounter [...] as of this encounter Care Teams Industrial Roofer Relationship Specialty Start Date End Date Caitlyn Bowie MD 3400 [facility] [address] [place] [address] PCP - General Internal Medicine 05/06/21 Henry Kelly MD Pulmonary Department [address] [facility] [place] [address] Physician Pulmonary Disease 09/06/17 06/22/20 documented as of this encounter
--- OUTSIDE RECORDS SUMMARY | 2024-09-05 10:53 | XMS_ITS | Encounter Summary ---
Author Organization [facility] and [facility] Address [address] [place] [address] Care Team Providers Care Museum Director Name Role Phone Caitlyn Bowie MD Primary Care Provider +1- [phone] Encounter Details Date Type Department Care Team (Late st Contact Info) Description 04/22/2021 Scanned Document INTERFACE DEFAULT [address] [place] [address] System, Provider Not In Social History Tobacco [...] Description 09/30/2024 8:00 PM EDT Procedure visit [facility] [address] [place] [address] [address] [place] [address] 10/31/2024 1:00 PM EDT Telemedicine [facility] at [facility] 240 [facility] [address] [place] [address] Ronald Mills MD 240 [facility] [address] [place] [address] documented as of this encounter Procedures Procedure [...] documented as of this encounter Care Teams Museum Director Relationship Specialty Start Date End Date Caitlyn Bowie MD [address] [address] PCP - General Internal Medicine 05/06/21 documented as of this encounter
--- OUTSIDE RECORDS SUMMARY | 2024-09-05 10:53 | XMS_ITS | Encounter Summary ---
Author Organization [facility] Address [address] [place] [address] Care Team Providers Care Optical Glass Silverer Name Role Phone Sharon Vides Primary Care Provider Unava ilable Brennan Burnett MD Primary Care Provider Unavailab Hayden Montes MD Unavailable [phone] Pallavi Flood NP Unavailable [phone]- [phone] Caitlyn Bowie MD Primary Care Provider Unava ilable Reason for Visit * Reason Onset Date Comments Provider Call Back 04/26/2019 Encounter Details Date Type Department Care Team Description 04/26/2019 Telephone Plastic Surgery [facility] [address] [facility] [address] [place] [address] Landen Aaron DO Provider Call Back Social History Tobacco Use Types Packs/Day Years [...] encounter Miscellaneous Notes * Telephone Encounter - Selina Gómez - 04/26/2019 9:11 AM EDT Patient called wanting to be seen sooner- She is having trouble walking , can't bend or put pressure on her foot has increased swelling . Called to get in with a dental technician apprentice and stated needs to see surgeon first . documented in this encounter Plan of Treatment Not on file documented as of this encounter Visit Diagnoses Not on filedocumented in this encounter Care Teams Optical Glass Silverer Relationship Specialty Start Date End Date Sharon Vides PCP - General Internal Medicine 08/02/18 05/26/20 Brennan Burnett MD PCP - General Internal Medicine 05/27/20 12/07/21 Caitlyn Bowie MD [address] [place] [address] PCP - General Internal Medicine 12/08/21 Hayden Shah MD [address] [place] [address] Specialist Cardiovascular Disease 09/01/20 Pallavi Flood NP [address] [place] [address] Cardiology 09/01/20 documented as of this encounter
--- OUTSIDE RECORDS SUMMARY | 2024-09-05 10:53 | XMS_ITS | Encounter Summary ---
Author Organization [facility] Address [address] [place] [address] Care Team Providers Care Pole Peeling Machine Operator Name Role Phone Sharon Vides Primary Care Provider Unava ilable Brennan Burnett MD Primary Care Provider Unavailab Hayden Montes MD Unavailable [phone] Pallavi Flood NP Unavailable [phone]- [phone] Caitlyn Bowie MD Primary Care Provider Unava ilable Reason for Visit * Reason Onset Date Comments Ankle Pain 07/05/2019 le, foot pain Encounter Details Date Type Department Care Team Description 07/05/2019 Telephone General Surgery [address] [place] [address] Norma Mendoza MD [address] [place] [address] Ankle Pain (le, foot pain) Social History [...] on filedocumented in this encounter Care Teams Pole Peeling Machine Operator Relationship Specialty Start Date End Date Sharon Vides PCP - General Internal Medicine 08/02/18 05/26/20 Brennan Burnett MD PCP - General Internal Medicine 05/27/20 12/07/21 Caitlyn Bowie MD [address] [place] [address] PCP - General Internal Medicine 12/08/21 Hayden Shah MD [address] [place] [address] Specialist Cardiovascular Disease 09/01/20 Pallavi Flood NP [address] [place] [address] Cardiology 09/01/20 documented as of this encounter
--- OUTSIDE RECORDS SUMMARY | 2024-09-05 10:53 | XMS_ITS | Encounter Summary ---
Author Organization [facility] Address [address] [place] [address] Care Team Providers Care Business Manager [employer] Name Role Phone Caitlyn Bowie MD Primary Care Provider +1- [phone] Encounter Details Date Type Department Care Team (Late st Contact Info) Description 03/23/2021 Scanned Document INTERFACE DEFAULT [address] [place] [address] System, Provider Not In Social History Tobacco [...] Description 09/30/2024 8:00 PM EDT Procedure visit [facility] [address] [place] [address] [address] [place] [address] 10/31/2024 1:00 PM EDT Telemedicine [facility] at [facility] [address] [facility] [address] [place] [address] Ronald Mills MD 240 [facility] [address] [place] [address] documented as of this encounter Procedures Procedure [...] as of this encounter Care Teams Business Manager College [employer] Relationship Specialty Start Date End Date Caitlyn Bowie MD [facility] [address] [address] PCP - General Internal Medicine 05/06/21 documented as of this encounter
--- OUTSIDE RECORDS SUMMARY | 2024-09-05 10:53 | XMS_ITS | Encounter Summary ---
Author Organization [facility] Address [address] [place] [address] Care Team Providers Care Cert Pharmacy Tech Name Role Phone Caitlyn Bowie MD Primary Care Provider +1- [phone] Encounter Details Date Type Department Care Team (Late st Contact Info) Description 02/24/2021 Scanned Document INTERFACE DEFAULT [address] [place] [address] System, Provider Not In Social History Tobacco [...] Description 09/30/2024 8:00 PM EDT Procedure visit [facility] [address] [place] [address] [address] [place] [address] 10/31/2024 1:00 PM EDT Telemedicine [facility] at [facility] 240 [facility] [address] [place] [address] Ronald Mills MD 240 [facility] [address] [place] [address] documented as of this encounter Procedures Procedure [...] documented as of this encounter Care Teams Cert Pharmacy Tech Relationship Specialty Start Date End Date Caitlyn Bowie MD [address] [address] PCP - General Internal Medicine 05/06/21 documented as of this encounter
--- OUTSIDE RECORDS SUMMARY | 2024-09-05 10:53 | XMS_ITS | Encounter Summary ---
Author Organization [facility] Address [address] [place] [address] Care Team Providers Care Milk Route Supervisor Name Role Phone Brennan Burnett MD Primary Care Provider Unavailab Hayden Montes MD Unavailable [phone] Pallavi Flood NP Unavailable [phone]- [phone] Caitlyn Bowie MD Primary Care Provider Unava ilable Encounter Details Date Type Department Care Team Description 09/15/2020 [facility] Medical Records [address] [place] [address] Social History Tobacco Use Types Packs/Day Years [...] on filedocumented in this encounter Care Teams Milk Route Supervisor Relationship Specialty Start Date End Date Brennan Burnett MD PCP - General Internal Medicine 05/27/20 12/07/21 Caitlyn Bowie MD [address] [place] [address] PCP - General Internal Medicine 12/08/21 Hayden Shah MD [address] [place] [address] Specialist Cardiovascular Disease 09/01/20 Pallavi Flood NP [address] [place] [address] Cardiology 09/01/20 documented as of this encounter
--- OUTSIDE RECORDS SUMMARY | 2024-09-05 10:53 | XMS_ITS | Encounter Summary ---
Author Organization [facility] and [facility] Address [address] [place] [address] Care Team Providers Care Die Maker Name Role Phone Caitlyn Bowie MD Primary Care Provider +1- [phone] Encounter Details Date Type Department Care Team (Late st Contact Info) Description 02/28/2021 Scanned Document INTERFACE DEFAULT [address] [place] [address] System, Provider Not In Social History Tobacco [...] Description 09/30/2024 8:00 PM EDT Procedure visit [facility] [address] [place] [address] [address] [place] [address] 10/31/2024 1:00 PM EDT Telemedicine [facility] at [facility] 240 [facility] [address] [place] [address] Ronald Mills MD 240 [facility] [address] [place] [address] documented as of this encounter Procedures Procedure [...] as of this encounter Care Teams Die Maker Relationship Specialty Start Date End Date Caitlyn Bowie MD [facility] [address] [address] PCP - General Internal Medicine 05/06/21 documented as of this encounter
--- OUTSIDE RECORDS SUMMARY | 2024-09-05 10:53 | XMS_ITS | Encounter Summary ---
Author Organization [facility] Address [address] [place] [address] Care Team Providers Care Black Top Roller Name Role Phone Caitlyn Bowie MD Primary Care Provider +1- [phone] Encounter Details Date Type Department Care Team (Late st Contact Info) Description 04/12/2021 Scanned Document INTERFACE DEFAULT [address] [place] [address] System, Provider Not In Social History Tobacco [...] EDT Procedure visit [facility] [address] [place] [address] [address] [place] [address] 10/31/2024 1:00 PM EDT Telemedicine [facility] 240 [facility] [address] [place] [address] Ronald Mills MD 240 [facility] [address] [place] [address] documented as of this encounter Procedures Procedure [...] as of this encounter Care Teams Black Top Roller Relationship Specialty Start Date End Date Caitlyn Bowie MD [facility] [address] [address] PCP - General Internal Medicine 05/06/21 documented as of this encounter
--- OUTSIDE RECORDS SUMMARY | 2024-09-05 10:53 | XMS_ITS | Encounter Summary ---
Author Organization [facility] Address [address] [place] [address] Care Team Providers Care Membership Sales Manager Name Role Phone Caitlyn Bowie MD Primary Care Provider +1- [phone] Encounter Details Date Type Department Care Team (Late st Contact Info) Description 01/26/2018 Scanned Document [facility] Health Information Management [address] [place] [address] External, Provider Social History Tobacco Use Types [...] Description 09/30/2024 8:00 PM EDT Procedure visit [facility] [address] [place] [address] [address] [place] [address] 10/31/2024 1:00 PM EDT Telemedicine [facility] at [facility] 240 [facility] Building [address] [place], [place] [address] Ronald Mills MD 240 [facility] [address]1 [place] [address] documented as of this encounter Visit Diagnoses Not on filedocumented in this encounter Additional Health Concerns Infection Onset Date Last Indicated Resolved Time COVID-19 03/05/2022 03/05/2022 03/15/2022 7:18 PM EDT documented as of this encounter Care Teams Membership Sales Manager Relationship Specialty Start Date End Date Caitlyn Bowie MD 3400 [facility] 1 [place] [address] PCP - General Internal Medicine 05/06/21 Henry Kelly MD Pulmonary Department [address] [facility] [place] [address] Physician Pulmonary Disease 09/06/17 06/22/20 documented as of this encounter
--- OUTSIDE RECORDS SUMMARY | 2024-09-05 10:54 | XMS_ITS | Encounter Summary ---
Author Organization [facility] and [facility] Address [address] [place] [address] Care Team Providers Care Marsh Buggy Operator Name Role Phone Caitlyn Bowie MD Primary Care Provider +1- [phone] Encounter Details Date Type Department Care Team (Late st Contact Info) Description 02/07/2021 Scanned Document INTERFACE DEFAULT [address] [place] [address] System, Provider Not In Social History Tobacco [...] Description 09/30/2024 8:00 PM EDT Procedure visit [facility] [address] [place] [address] [address] [place] [address] 10/31/2024 1:00 PM EDT Telemedicine [facility] at [facility] 240 [facility] [address] [place] [address] Ronald Mills MD 240 [facility] [address] [place] [address] documented as of this encounter Procedures Procedure [...] documented as of this encounter Care Teams Marsh Buggy Operator Relationship Specialty Start Date End Date Caitlyn Bowie MD [facility] [address] [address] PCP - General Internal Medicine 05/06/21 documented as of this encounter
--- OUTSIDE RECORDS SUMMARY | 2024-09-05 10:54 | XMS_ITS | Encounter Summary ---
Author Organization [facility] and [facility] Address [address] [place] [address] Care Team Providers Care College Admissions Counselor Name Role Phone Caitlyn Bowie MD Primary Care Provider +1- [phone] Encounter Details Date Type Department Care Team (Late st Contact Info) Description 12/21/2020 Scanned Document INTERFACE DEFAULT [address] [place] [address] System, Provider Not In Social History Tobacco [...] Description 09/30/2024 8:00 PM EDT Procedure visit [facility] [address] [place] [address] [address] [place] [address] 10/31/2024 1:00 PM EDT Telemedicine Cancer Center at [facility] 240 [facility] [address] [place] [address] Ronald Mills MD 240 [facility] [address]1 [place] [address] documented as of this encounter Visit Diagnoses Not on filedocumented in this encounter Additional Health Concerns Infection Onset Date Last Indicated Resolved Time COVID-19 03/05/2022 03/05/2022 03/15/2022 7:18 PM EDT Assessment Noted Time PHQ-9 Depression Total Score: 2 11/07/19 19 2:06 PM EDT documented as of this encounter Care Teams College Admissions Counselor Relationship Specialty Start Date End Date Caitlyn Bowie MD [address] [address] PCP - General Internal Medicine 05/06/21 documented as of this encounter
--- OUTSIDE RECORDS SUMMARY | 2024-09-05 10:54 | XMS_ITS | Encounter Summary ---
Author Organization [facility] Address [address] [place] [address] Care Team Providers Care Charge Poster Name Role Phone Caitlyn Bowie MD Primary Care Provider +1- [phone] Encounter Details Date Type Department Care Team (Late Contact Info) Description 02/03/2021 Scanned Document [facility] Health Information Management [address] [place] [address] External, Provider Social History Tobacco Use Types [...] EDT Procedure visit [facility] [address] [place] [address] [address] [place] [address] 10/31/2024 1:00 PM EDT Telemedicine [facility] 240 [facility] [address] [place] [address] Ronald Mills MD 240 [facility] [address]1 [place] [address] documented as of this encounter [...] as of this encounter Care Teams Charge Poster Relationship Specialty Start Date End Date Caitlyn Bowie MD [address] [address] PCP - General Internal Medicine 05/06/21 documented as of this encounter
--- OUTSIDE RECORDS SUMMARY | 2024-09-05 10:54 | XMS_ITS | Encounter Summary ---
Author Organization [facility] Address [address] [place] [address] Care Team Providers Care Automatic Print Developer Name Role Phone Caitlyn Bowie MD Primary Care Provider +1- [phone] Encounter Details Date Type Department Care Team (Late st Contact Info) Description 01/13/2021 Scanned Document Cancer Center at [address] [address] External, Provider Social History Tobacco Use Types [...] EDT Procedure visit [facility] [address] [place] [address] [place] [address] 10/31/2024 1:00 PM EDT Telemedicine Cancer Center at [address] [place], [place] [address] Ronald Mills MD [address] [address] documented as of this [...] as of this encounter Care Teams Automatic Print Developer Relationship Specialty Start Date End Date Caitlyn Bowie MD [address] [address] PCP - General Internal Medicine 05/06/21 documented as of this encounter
--- OUTSIDE RECORDS SUMMARY | 2024-09-05 10:54 | XMS_ITS | Encounter Summary ---
Author Organization [facility] Address [address] [place] [address] Care Team Providers Care Helicopter Pilot Instructor Name Role Phone Brennan Burnett MD Primary Care Provider Unavailab Hayden Montes MD Unavailable [phone] Pallavi Flood NP Unavailable [phone]- [phone] Caitlyn Bowie MD Primary Care Provider Unava ilable Encounter Details Date Type Department Care Team Description 09/30/2020 [facility] Medical Records [address] [place] [address] Social History Tobacco Use Types Packs/Day Years [...] on filedocumented in this encounter Care Teams Helicopter Pilot Instructor Relationship Specialty Start Date End Date Brennan Burnett MD PCP - General Internal Medicine 05/27/20 12/07/21 Caitlyn Bowie MD [address] [place] [address] PCP - General Internal Medicine 12/08/21 Hayden Shah MD [address] [place] [address] Specialist Cardiovascular Disease 09/01/20 Pallavi Flood NP [address] [place] [address] Cardiology 09/01/20 documented as of this encounter
--- OUTSIDE RECORDS SUMMARY | 2024-09-05 10:54 | XMS_ITS | Encounter Summary ---
Author Organization [facility] and [facility] Address [address] [place] [address] Care Team Providers Care Diplomatic Courier Name Role Phone Caitlyn Bowie MD Primary Care Provider +1- [phone] Encounter Details Date Type Department Care Team (Late st Contact Info) Description 02/02/2021 Scanned Document INTERFACE DEFAULT [address] [place] [address] System, Provider Not In Social History Tobacco [...] Description 09/30/2024 8:00 PM EDT Procedure visit [facility] [address] [place] [address] [address] [place] [address] 10/31/2024 1:00 PM EDT Telemedicine [facility] at [facility] 240 [facility] [address] [place] [address] Ronald Mills MD 240 [facility] A1 [place] [address] documented as of this encounter Procedures Procedure [...] documented as of this encounter Care Teams Diplomatic Courier Relationship Specialty Start Date End Date Caitlyn Bowie MD [address] [address] PCP - General Internal Medicine 05/06/21 documented as of this encounter
--- OUTSIDE RECORDS SUMMARY | 2024-09-05 10:54 | XMS_ITS | Encounter Summary ---
Author Organization [facility] and [facility] Address [address] [place] [address] Care Team Providers Care Pharmacy Account Director Name Role Phone Caitlyn Bowie MD Primary Care Provider +1- [phone] Encounter Details Date Type Department Care Team (Late st Contact Info) Description 01/27/2021 Scanned Document Cancer Center at [address] [address] External, Provider Social History Tobacco Use Types [...] Description 09/30/2024 8:00 PM EDT Procedure visit [facility] [address] [place] [address] [place] [address] 10/31/2024 1:00 PM EDT Telemedicine Cancer Center at [address] [place], [place] [address] Ronald Mills MD [address] [address] documented as of this encounter [...] documented as of this encounter Care Teams Pharmacy Account Director Relationship Specialty Start Date End Date Caitlyn Bowie MD [address] [address] PCP - General Internal Medicine 05/06/21 documented as of this encounter
--- OUTSIDE RECORDS SUMMARY | 2024-09-05 10:54 | XMS_ITS | Encounter Summary ---
Author Organization [facility] Address [address] [place] [address] Care Team Providers Care Warehousing Technician Name Role Phone Caitlyn Bowie MD Primary Care Provider +1- [phone] Encounter Details Date Type Department Care Team (Late st Contact Info) Description 02/11/2021 Scanned Document INTERFACE DEFAULT [address] [place] [address] System, Provider Not In Social History Tobacco [...] Description 09/30/2024 8:00 PM EDT Procedure visit [facility] [address] [place] [address] [address] [place] [address] 10/31/2024 1:00 PM EDT Telemedicine [facility] Center at [facility] 240 [facility] [address] [place] [address] Ronald Mills MD 240 [facility] A1 [place] [address] documented as of this encounter Procedures Procedure [...] documented as of this encounter Care Teams Warehousing Technician Relationship Specialty Start Date End Date Caitlyn Bowie MD [address] [address] PCP - General Internal Medicine 05/06/21 documented as of this encounter
--- OUTSIDE RECORDS SUMMARY | 2024-09-05 10:54 | XMS_ITS | Encounter Summary ---
Author Organization [facility] and [facility] Address [address] [place] [address] Care Team Providers Care Bottom Stainer Name Role Phone Caitlyn Bowie MD Primary Care Provider +1- [phone] Encounter Details Date Type Department Care Team (Late st Contact Info) Description 05/01/2015 Scanned Document [facility] Health Information Management [address] [place] [address] External, Provider Social History Tobacco Use Types [...] Description 09/30/2024 8:00 PM EDT Procedure visit [facility] [address] [place] [address] [address] [place] [address] 10/31/2024 1:00 PM EDT Telemedicine [facility] at [facility] 240 [facility] Building [address] [place], [place] [address] Ronald Mills MD 240 [facility] A1 [place] [address] documented as of this encounter Procedures Procedure [...] documented as of this encounter Care Teams Bottom Stainer Relationship Specialty Start Date End Date Caitlyn Bowie MD 3400 [facility] 1 [place] [address] PCP - General Internal Medicine 05/06/21 Henry Kelly MD Pulmonary Department 175 [facility] [place] [address] Physician Pulmonary Disease 09/06/17 06/22/20 documented as of this encounter
--- OUTSIDE RECORDS SUMMARY | 2024-09-05 10:54 | XMS_ITS | Encounter Summary ---
Author Organization [facility] and [facility] Address [address] [place] [address] Care Team Providers Care Physical Design Engineer Name Role Phone Caitlyn Bowie MD Primary Care Provider +1- [phone] Encounter Details Date Type Department Care Team (Late st Contact Info) Description 06/25/2015 Scanned Document [facility] Health Information Management [address] [place] [address] External, Provider Social History Tobacco Use Types [...] Description 09/30/2024 8:00 PM EDT Procedure visit [facility] [address] [place] [address] [address] [place] [address] 10/31/2024 1:00 PM EDT Telemedicine Cancer Center at [facility] 240 [facility] Building [address] [place], [place] [address] Ronald Mills MD 240 [facility] A1 [place] [address] documented as of this encounter Visit Diagnoses Not on filedocumented in this encounter Additional Health Concerns Infection Onset Date Last Indicated Resolved Time COVID-19 03/05/2022 03/05/2022 03/15/2022 7:18 PM EDT documented as of this encounter Care Teams Physical Design Engineer Relationship Specialty Start Date End Date Caitlyn Bowie MD 3400 [facility] [address] 1 [place] [address] PCP - General Internal Medicine 05/06/21 Henry Kelly MD Pulmonary Department 175 [facility], [address] [place] [address] Physician Pulmonary Disease 09/06/17 06/22/20 documented as of this encounter
--- OUTSIDE RECORDS SUMMARY | 2024-09-05 10:54 | XMS_ITS | Encounter Summary ---
Author Organization [facility] and [facility] Address [address] [place] [address] Care Team Providers Care Software Specialist Name Role Phone Caitlyn Bowie MD Primary Care Provider +1- [phone] Reason for Visit * Reason Comments Other Encounter Details Date Type Department Care Team (Late st Contact Info) Description 01/12/2021 Telephone [facility] at [address] - [address] [phone] Ronald Mills MD [address] [place] [phone] Other Social History Tobacco Use Types [...] AM EDT Lab orders were faxed to [facility] @ [phone]. Patient notified by phone. * Telephone Encounter - Nasima Wang - 01/12/2021 8:46 AM EDT Pt called looking to speak with Kirstin RE: lab orders sent to lab [facility] lab Looking to have labs sent there A.S.A.P at some point today She is scheduled with Dr. Mills on January 28 documented in this encounter Plan of Treatment Upcoming Encounters Date Type Department Care Team (Late st Contact Info) Description 09/30/2024 8:00 PM EDT Procedure visit [facility] [address] [place] [address] [address] [place] [address] 10/31/2024 1:00 PM EDT Telemedicine Cancer Center at [facility] 240 [facility] [address] [place], [place] [address] Ronald Mills MD 240 [facility] Max [address]1 [place] [address] documented as of this encounter Visit Diagnoses Not on filedocumented in this encounter Additional Health Concerns Infection Onset Date Last Indicated Resolved Time COVID-19 03/05/2022 03/05/2022 03/15/2022 7:18 PM EDT Assessment Noted Time PHQ-9 Depression Total Score: 2 11/07/19 19 2:06 PM EDT documented as of this encounter Care Teams Software Specialist Relationship Specialty Start Date End Date Caitlyn Bowie MD 3400 [facility] 1 [place] [address] PCP - General Internal Medicine 05/06/21 documented as of this encounter
--- OUTSIDE RECORDS SUMMARY | 2024-09-05 10:54 | XMS_ITS | Encounter Summary ---
Author Organization [facility] and [facility] Address [address] [place] [address] Care Team Providers Care Vial Gauger Name Role Phone Caitlyn Bowie MD Primary Care Provider +1- [phone] Encounter Details Date Type Department Care Team (Late st Contact Info) Description 02/03/2021 Scanned Document INTERFACE DEFAULT [address] [place] [phone] System, Provider Not In Social History Tobacco [...] Description 09/30/2024 8:00 PM EDT Procedure visit [facility] [address] [place] [address] [address] [place] [address] 10/31/2024 1:00 PM EDT Telemedicine Cancer Center at [facility] 240 [facility] [address] [place] [address] Ronald Mills MD 240 [facility] A1 [place] [address] documented as of this encounter Procedures Procedure [...] documented as of this encounter Care Teams Vial Gauger Relationship Specialty Start Date End Date Caitlyn Bowie MD [address] [address] PCP - General Internal Medicine 05/06/21 documented as of this encounter
--- OUTSIDE RECORDS SUMMARY | 2024-09-05 10:54 | XMS_ITS | Encounter Summary ---
Author Organization [facility] and [facility] Address [address] [place] [address] Care Team Providers Care Check Writing Machine Operator Name Role Phone Caitlyn Bowie MD Primary Care Provider +1- [phone] Encounter Details Date Type Department Care Team ([facility] st Contact Info) Description 08/26/2014 Documentation [facility] [address] [place] [address] Shilpi Ibarra [address] [place] [address] Social History Tobacco Use Types Packs/Day Years [...] from the original note were not included. [facility] Progress Note This is a 69 y.o. female who was provided services by [facility]. Service Provided By:: Shilpi Ibarra Patient Status: return Length of Appointment: 60 minutes documented in this encounter Plan of Treatment Upcoming Encounters Date Type Department Care Team (Late st Contact Info) Description 09/30/2024 8:00 PM EDT Procedure visit [facility] [address] [facility] [address] [place] [address] 10/31/2024 1:00 PM EDT Telemedicine Cancer [facility] at [facility] 240 [facility] Building [address] [place] [address] Ronald Mills MD 240 [facility] Max [address]1 [place] [address] documented as of this encounter Visit Diagnoses Not on filedocumented in this encounter Additional Health Concerns Infection Onset Date Last Indicated Resolved Time COVID-19 03/05/2022 03/05/2022 03/15/2022 7:18 PM EDT documented as of this encounter Care Teams Check Writing Machine Operator Relationship Specialty Start Date End Date Caitlyn Bowie MD 3400 [facility] 1 [place] [address] PCP - General Internal Medicine 05/06/21 Henry Kelly MD Pulmonary Department 175 [facility], [address] [place] [address] Physician Pulmonary Disease 09/06/17 06/22/20 documented as of this encounter
--- OUTSIDE RECORDS SUMMARY | 2024-09-05 10:54 | XMS_ITS | Encounter Summary ---
Author Organization [facility] and [facility] Address [address] [place] [address] Care Team Providers Care National Account Representative Name Role Phone Caitlyn Bowie MD Primary Care Provider +1- [phone] Encounter Details Date Type Department Care Team (Late st Contact Info) Description 04/28/2015 Scanned Document [facility] Health Information Management [address] [place] [address] External, Provider Social History Tobacco Use Types [...] Description 09/30/2024 8:00 PM EDT Procedure visit [facility] [address] [place] [address] [address] [place] [address] 10/31/2024 1:00 PM EDT Telemedicine [facility] at [facility] 240 [facility] Building [address] [place], [place] [address] Ronald Mills MD 240 [facility] [address]1 [place] [address] documented as of this encounter Visit Diagnoses Not on filedocumented in this encounter Additional Health Concerns Infection Onset Date Last Indicated Resolved Time COVID-19 03/05/2022 03/05/2022 03/15/2022 7:18 PM EDT documented as of this encounter Care Teams National Account Representative Relationship Specialty Start Date End Date Caitlyn Bowie MD 3400 [facility] [address] 1 [place] [address] PCP - General Internal Medicine 05/06/21 Henry Kelly MD Pulmonary Department 175 [facility], [address] [place] [address] Physician Pulmonary Disease 09/06/17 06/22/20 documented as of this encounter
--- OUTSIDE RECORDS SUMMARY | 2024-09-05 10:54 | XMS_ITS | Clinical Summary ---
Author Organization [facility] Address [address] [place] [address] Care Team Providers Care Visual C Developer Name Role Phone Hayden Shah MD Unavailable [phone] Pallavi Flood NP Unavailable +1- [phone] Caitlyn Bowie MD Primary Care Provider Unava [...] 20 mg as needed by her previous lithostripper which she has taken sporadically. I have asked her to take this daily to see if this improves her symptoms and she has a follow-up appointment with Dr. Shah on September 16 which she will keep. We also had a long conversation regarding the fact that she is seeing 3 different lithostripper for the same problems. We informed her [...] continues to see Dr. Avalos or her lithostripper at [facility]. She verbalized understanding of this and expressed [...] Mx LLL resection, Chemo, RT, Cisplatin, Vinorelbine [phone] Obstructive sleep apnea syndrome 017 Overview: CPAP [...] 09/17/2015, 04/21/2014, Additional history exists Care Teams Visual C Developer Relationship Specialty Start Date End Date Caitlyn Bowie MD [address] [place] [address] PCP - General Internal Medicine 12/08/21 Hayden Shah MD [address] [place] [address] Specialist Cardiovascular Disease 09/01/20 Pallavi Flood NP [address] [place] [phone] Cardiology 09/01/20
--- OUTSIDE RECORDS SUMMARY | 2024-09-05 10:54 | XMS_ITS | Encounter Summary ---
Author Organization [facility] and [facility] Address [address] [place] [address] Care Team Providers Care Consulting Project Director Name Role Phone Caitlyn Bowie MD Primary Care Provider +1- [phone] Encounter Details Date Type Department Care Team (Late st Contact Info) Description 01/13/2021 Scanned Document Cancer Center at [address] [address] Ronald Mills MD [address] [place] [address] Social History Tobacco Use Types Packs/Day [...] Description 09/30/2024 8:00 PM EDT Procedure visit [facility] [address] [place] [address] [place] [address] 10/31/2024 1:00 PM EDT Telemedicine Cancer Center at [address] [place], [place] [address] Ronald Mills MD 240 [facility] A1 [place] [address] documented as of this encounter [...] documented as of this encounter Care Teams Consulting Project Director Relationship Specialty Start Date End Date Caitlyn Bowie MD [address] [address] PCP - General Internal Medicine 05/06/21 documented as of this encounter
--- OUTSIDE RECORDS SUMMARY | 2024-09-05 10:54 | XMS_ITS | Encounter Summary ---
Author Organization [facility] Address [address] [place] [address] Care Team Providers Care Pile Driving Supervisor Name Role Phone Brennan Burnett MD Primary Care Provider Unavailab Hayden Montes MD Unavailable [phone] Pallavi Folod NP Unavailable [phone]- [phone] Caitlyn Bowie MD Primary Care Provider Unava ilable Encounter Details Date Type Department Care Team Description 09/25/2020 Geriatric Case Manager Report Medical Records [address] [place] [address] Henry Kelly MD Social History Tobacco Use [...] on filedocumented in this encounter Care Teams Pile Driving Supervisor Relationship Specialty Start Date End Date Brennan Burnett MD PCP - General Internal Medicine 05/27/20 12/07/21 Caitlyn Bow[address] [place] [address] PCP - General Internal Medicine 12/08/21 Hayden Shah MD [address] [place] [address] Specialist Cardiovascular Disease 09/01/20 Pallavi Flood NP [address] [place] [address] Cardiology 09/01/20 documented as of this encounter
--- OUTSIDE RECORDS SUMMARY | 2024-09-05 10:54 | XMS_ITS | Encounter Summary ---
Author Organization [facility] and [facility] Address [address] [place] [address] Care Team Providers Care International Nurse Name Role Phone Caitlyn Bowie MD Primary Care Provider +1- [phone] Encounter Details Date Type Department Care Team (Late st Contact Info) Description 11/29/2017 Scanned Document [facility] Health Information Management [address] [place] [address] External, Provider Social History Tobacco Use Types [...] Description 09/30/2024 8:00 PM EDT Procedure visit [facility] [address] [place] [address] [address] [place] [address] 10/31/2024 1:00 PM EDT Telemedicine Cancer Center at [facility] 240 [facility] Building [address] [place], [place] [phone] Ronald Mills MD 240 [facility] A1 [place] [address] documented as of this encounter [...] as of this encounter Care Teams International Nurse Relationship Specialty Start Date End Date Caitlyn Bowie MD 3400 [facility] 1 [place] [address] PCP - General Internal Medicine 05/06/21 Henry Kelly MD Pulmonary Department 175 [facility], [address] [place] [address] Physician Pulmonary Disease 09/06/17 06/22/20 documented as of this encounter
--- OUTSIDE RECORDS SUMMARY | 2024-09-05 10:54 | XMS_ITS | Encounter Summary ---
Author Organization [facility] and [facility] Address [address] [place] [address] Care Team Providers Care Industrial Education Instructor Name Role Phone Caitlyn Bowie MD Primary Care Provider +1- [phone] Encounter Details Date Type Department Care Team (Late st Contact Info) Description 11/09/2020 Scanned Document INTERFACE DEFAULT [address] [place] [address] System, Provider Not In Social History Tobacco [...] Description 09/30/2024 8:00 PM EDT Procedure visit [facility] [address] [place] [address] [address] [place] [address] 10/31/2024 1:00 PM EDT Telemedicine [facility] 240 [facility] [address] [place] [address] Ronald Mills MD 240 [facility] A1 [place] [address] documented as of this encounter Visit Diagnoses Not on filedocumented in this encounter Additional Health Concerns Infection Onset Date Last Indicated Resolved Time COVID-19 03/05/2022 03/05/2022 03/15/2022 7:18 PM EDT Assessment Noted Time PHQ-9 Depression Total Score: 2 11/07/19 19 2:06 PM EDT documented as of this encounter Care Teams Industrial Education Instructor Relationship Specialty Start Date End Date Caitlyn Bowie MD [address] [address] PCP - General Internal Medicine 05/06/21 documented as of this encounter
--- OUTSIDE RECORDS SUMMARY | 2024-09-05 10:54 | XMS_ITS | Encounter Summary ---
Author Organization [facility] and [facility] Address [address] [place] [address] Care Team Providers Care Child Life Therapist Name Role Phone Caitlyn Bowie MD Primary Care Provider +1- [phone] Encounter Details Date Type Department Care Team (Late Contact Info) Description 02/02/2021 Scanned Document [facility] Health Information Management [address] [place] [address] External, Provider Social History Tobacco Use Types [...] Description 09/30/2024 8:00 PM EDT Procedure visit [facility] [address] [place] [address] [address] [place] [address] 10/31/2024 1:00 PM EDT Telemedicine Cancer Center at [facility] 240 [facility] [address] [place] [address] Ronald Mills MD 240 [facility] A1 [place] [address] documented as of this encounter Visit Diagnoses Not on filedocumented in this encounter Additional Health Concerns Infection Onset Date Last Indicated Resolved Time COVID-19 03/05/2022 03/05/2022 03/15/2022 7:18 PM EDT Assessment Noted Time PHQ-9 Depression Total Score: 2 11/07/19 19 2:06 PM EDT documented as of this encounter Care Teams Child Life Therapist Relationship Specialty Start Date End Date Caitlyn Bowie MD [address] [address] PCP - General Internal Medicine 05/06/21 documented as of this encounter
--- OUTSIDE RECORDS SUMMARY | 2024-09-05 10:54 | XMS_ITS | Encounter Summary ---
Author Organization [facility] and [facility] Address [address] [place] [address] Care Team Providers Care Mechanical Expert Name Role Phone Caitlyn Bowie MD Primary Care Provider +1- [phone] Encounter Details Date Type Department Care Team (Late st Contact Info) Description 07/31/2015 Scanned Document [facility] Health Information Management [address] [place] [address] External, Provider Social History Tobacco Use Types [...] Description 09/30/2024 8:00 PM EDT Procedure visit [facility] [address] [place] [address] [address] [place] [address] 10/31/2024 1:00 PM EDT Telemedicine Cancer Center at [facility] [address] [facility] [address] [place], [place] [address] Ronald Mills MD 240 [facility] A1 [place] [address] documented as of this encounter Procedures Procedure Name Priority Date/Time Associated Diagnosis Comments NUC MED/PET RESULT SCAN Routine 07/31/2015 documented in this encounter Results * Nuc Med/PET Result Scan (07/31/2015) us Provider External IMG SCAN REPORTS Edited Result - Final [facility] documented in this encounter Visit Diagnoses Not on filedocumented in this encounter Additional Health Concerns Infection Onset Date Last Indicated Resolved Time COVID-19 03/05/2022 03/05/2022 03/15/2022 7:18 PM EDT documented as of this encounter Care Teams Mechanical Expert Relationship Specialty Start Date End Date Caitlyn Bowie MD 3400 [facility] 1 [place] [address] PCP - General Internal Medicine 05/06/21 Henry Kelly MD Pulmonary Department 175 [facility], [address] [place] [address] Physician Pulmonary Disease 09/06/17 06/22/20 documented as of this encounter
--- OUTSIDE RECORDS SUMMARY | 2024-09-05 10:54 | XMS_ITS | Encounter Summary ---
Author Organization [facility] Address [address] [place] [address] Care Team Providers Care Internal Combustion Engine Subassembler Name Role Phone Caitlyn Bowie MD Primary Care Provider +1- [phone] Encounter Details Date Type Department Care Team (Late st Contact Info) Description 05/14/2015 Scanned Document [facility] Health Information Management [address] [place] [address] External, Provider Social History Tobacco Use Types [...] Description 09/30/2024 8:00 PM EDT Procedure visit [facility] [address] [place] [address] [address] [place] [address] 10/31/2024 1:00 PM EDT Telemedicine Cancer Center at [facility] 240 [facility] Building [address] [place], [place] [address] Ronald Mills MD 240 [facility] A1 [place] [address] documented as of this encounter Visit Diagnoses Not on filedocumented in this encounter Additional Health Concerns Infection Onset Date Last Indicated Resolved Time COVID-19 03/05/2022 03/05/2022 03/15/2022 7:18 PM EDT documented as of this encounter Care Teams Internal Combustion Engine Subassembler Relationship Specialty Start Date End Date Caitlyn Bowie MD 3400 [facility] [address] 1 [place] [address] PCP - General Internal Medicine 05/06/21 Henry Kelly MD Pulmonary Department 175 [facility], [address] [place] [address] Physician Pulmonary Disease 09/06/17 06/22/20 documented as of this encounter
--- OUTSIDE RECORDS SUMMARY | 2024-09-05 10:54 | XMS_ITS | Encounter Summary ---
Author Organization [facility] and [facility] Address [address] [place] [address] Care Team Providers Care Transportation Security Screener Name Role Phone Caitlyn Bowie MD Primary Care Provider +1- [phone] Encounter Details Date Type Department Care Team (Late st Contact Info) Description 01/07/2014 Documentation [facility] [address] [place] [address] Shilpi Ibarra [address] [place] [address] Social History Tobacco Use Types Packs/Day Years [...] the original note were not included. [facility] Progress Note This is a 68 y.o. female who was provided services by [facility]. Service Provided By:: Shilpi Ibarra Patient Status: new Length of Appointment: 60 minutes Pre-Treatment Total: 3.6 Post-Treatment Total: 1.2 documented in this encounter Plan of Treatment Upcoming Encounters Date Type Department Care Team (Late st Contact Info) Description 09/30/2024 8:00 PM EDT Procedure visit [facility] [address] [place] [address] [address] [place] [address] 10/31/2024 1:00 PM EDT Telemedicine Cancer Center at [facility] [address] [facility] [address] [place], [place] [address] Ronald Mills MD 240 [facility] Max [address] [place] [address] documented as of this encounter Visit Diagnoses Not on filedocumented in this encounter Additional Health Concerns Infection Onset Date Last Indicated Resolved Time COVID-19 03/05/2022 03/05/2022 03/15/2022 7:18 PM EDT documented as of this encounter Care Teams Transportation Security Screener Relationship Specialty Start Date End Date Caitlyn Bowie MD 3400 [facility] 1 [place] [address] PCP - General Internal Medicine 05/06/21 Henry Kelly MD Pulmonary Department 175 [facility], [address] [place] [address] Physician Pulmonary Disease 09/06/17 06/22/20 documented as of this encounter
--- OUTSIDE RECORDS SUMMARY | 2024-09-05 10:54 | XMS_ITS | Encounter Summary ---
Author Organization [facility] and [facility] Address [address] [place] [address] Care Team Providers Care Commercial Baking Teacher Name Role Phone Caitlyn Bowie MD Primary Care Provider +1- [phone] Encounter Details Date Type Department Care Team (Late st Contact Info) Description 09/01/2017 Scanned Document [facility] Health Information Management [address] [place] [address] External, Provider Social History Tobacco Use Types [...] 09/30/2024 8:00 PM EDT Procedure visit [facility] [address] [place] [address] [address] [place] [address] 10/31/2024 1:00 PM EDT [facility]icine [facility] [address] [facility] [address] [place], [place] [phone] Ronald Mills MD 240 [facility] [address] [place] [address] documented as of this encounter [...] documented as of this encounter Care Teams Commercial Baking Teacher Relationship Specialty Start Date End Date Caitlyn Bowie MD [address] [facility] 1 [place] [address] PCP - General Internal Medicine 05/06/21 Henry Kelly MD Pulmonary Department 175 [facility], [address] [place] [address] Physician Pulmonary Disease 09/06/17 06/22/20 documented as of this encounter
--- OUTSIDE RECORDS SUMMARY | 2024-09-05 10:54 | XMS_ITS | Encounter Summary ---
Author Organization [facility] and [facility] Address [address] [place] [address] Care Team Providers Care Ceramist Name Role Phone Caitlyn Bowie MD Primary Care Provider +1- [phone] Encounter Details Date Type Department Care Team (Late st Contact Info) Description 08/23/2017 Scanned Document [facility] Health Information Management [address] [place] [address] External, Provider Social History Tobacco Use Types [...] Description 09/30/2024 8:00 PM EDT Procedure visit [facility] [address] [place] [address] [address] [place] [address] 10/31/2024 1:00 PM EDT Telemedicine [facility] at [facility] 240 [facility] Building [address] [place], [place] [phone] Ronald Mills MD 240 [facility] A1 [place] [address] documented as of this encounter [...] documented as of this encounter Care Teams Ceramist Relationship Specialty Start Date End Date Caitlyn Bowie MD 3400 [facility] 1 [place] [address] PCP - General Internal Medicine 05/06/21 Henry Kelly MD Pulmonary Department 175 [facility], [address] [place] [address] Physician Pulmonary Disease 09/06/17 06/22/20 documented as of this encounter
--- OUTSIDE RECORDS SUMMARY | 2024-09-05 10:54 | XMS_ITS | Encounter Summary ---
Author Organization [facility] and [facility] Address [address] [place] [address] Care Team Providers Care Sales Agent Pest Control Service Name Role Phone Caitlyn Bowie MD Primary Care Provider +1- [phone] Encounter Details Date Type Department Care Team (Late st Contact Info) Description 02/08/2021 Scanned Document INTERFACE DEFAULT [address] [place] [address] System, Provider Not In Social History Tobacco [...] Description 09/30/2024 8:00 PM EDT Procedure visit [facility] [address] [place] [address] [address] [place] [address] 10/31/2024 1:00 PM EDT [facility] [address] [facility] [address] [place] [address] Ronald Mills MD 240 [facility] A1 [place] [address] documented as of this encounter Visit Diagnoses Not on filedocumented in this encounter Additional Health Concerns Infection Onset Date Last Indicated Resolved Time COVID-19 03/05/2022 03/05/2022 03/15/2022 7:18 PM EDT Assessment Noted Time PHQ-9 Depression Total Score: 2 11/07/19 19 2:06 PM EDT documented as of this encounter Care Teams Sales Agent Pest Control Service Relationship Specialty Start Date End Date Caitlyn Bowie MD [address] [address] PCP - General Internal Medicine 05/06/21 documented as of this encounter
--- OUTSIDE RECORDS SUMMARY | 2024-09-05 10:54 | XMS_ITS | Encounter Summary ---
Author Organization [facility] Address [address] [place] [address] Care Team Providers Care Home Administrator Name Role Phone Brennan Burnett MD Primary Care Provider Unavailab Hayden Montes MD Unavailable [phone] Pallavi Flood NP Unavailable + [phone] Caitlyn Bowie MD Primary Care Provider Unava ilable Reason for Visit * Reason Onset Date Comments other 09/30/2020 Chest discomfort and tingling in arms Encounter Details Date Type Department Care Team Description 09/30/2020 Telephone Cardio [facility] [address] [place] [address] [address] [place] [address] Hayden Shah MD [address] [place] [phone] other (Chest discomfort and tingling in arms) [...] 02/16.States sx have worsened and reports saw drum tester other day and was unable to walk due to developing heaviness in her chest that worsened and states drum tester advised er (Patient was [facility] [place] appt and instead of going [...] legs are swollen. Pt stated that the CLINICAL AUDITOR from her PCP's office even increased the Lasix. Pt stated that her heart is racing when she walks up the stairs. Pt c na be reached at [phone]. documented in this encounter Plan of Treatment Not on file documented as of this encounter Visit Diagnoses Not on filedocumented in this encounter Care Teams Home Administrator Relationship Specialty Start Date End Date Brennan Burnett MD PCP - General Internal Medicine 05/27/20 12/07/21 Caitlyn Bowie MD [address] [place] [address] PCP - General Internal Medicine 12/08/21 Hayden Shah MD [address] [place] [address] Specialist Cardiovascular Disease 09/01/20 Pallavi Flood NP [address] [place] [address] Cardiology 09/01/20 documented as of this encounter
--- OUTSIDE RECORDS SUMMARY | 2024-09-05 10:54 | XMS_ITS | Encounter Summary ---
Author Organization [facility] and [facility] Address [address] [place] [address] Care Team Providers Care Propulsion Generator Repairer Name Role Phone Caitlyn Bowie MD Primary Care Provider +1- [phone] Encounter Details Date Type Department Care Team (Late st Contact Info) Description 10/07/2013 Scanned Document [facility] Oncology Program at [address] [address] Suzy Kong MD [address] [place] [phone] Social History Tobacco Use Types Packs/Day [...] Description 09/30/2024 8:00 PM EDT Procedure visit [facility] [address] [place] [address] [place] [address] 10/31/2024 1:00 PM EDT Telemedicine Cancer Center at [address] [place] [address] Ronald Mills MD [address] [place] [address] [address] [place] [address] documented as of this encounter Visit Diagnoses Not on filedocumented in this encounter Additional Health Concerns Infection Onset Date Last Indicated Resolved Time COVID-19 03/05/2022 03/05/2022 03/15/2022 7:18 PM EDT documented as of this encounter Care Teams Propulsion Generator Repairer Relationship Specialty Start Date End Date Caitlyn Bowie MD 3400 [facility] 1 [place] [address] PCP - General Internal Medicine 05/06/21 Henry Kelly MD Pulmonary Department 175 [facility], [address] [place] [address] Physician Pulmonary Disease 09/06/17 06/22/20 documented as of this encounter
--- OUTSIDE RECORDS SUMMARY | 2024-09-05 10:54 | XMS_ITS | Encounter Summary ---
Author Organization [facility] and [facility] Address [address] [place] [address] Care Team Providers Care Continuing Education Instructor Name Role Phone Caitlyn Bowie MD Primary Care Provider +1- [phone] Encounter Details Date Type Department Care Team (Late st Contact Info) Description 09/18/2020 Scanned Document INTERFACE DEFAULT [address] [place] [address] System, Provider Not In Social History Tobacco [...] Description 09/30/2024 8:00 PM EDT Procedure visit [facility] [address] [place] [address] [address] [place] [address] 10/31/2024 1:00 PM EDT Telemedicine Cancer Center at [facility] 240 [facility] [address] [place] [address] Ronald Mills MD 240 [facility] A1 [place] [address] documented as of this encounter Visit Diagnoses Not on filedocumented in this encounter Additional Health Concerns Infection Onset Date Last Indicated Resolved Time COVID-19 03/05/2022 03/05/2022 03/15/2022 7:18 PM EDT Assessment Noted Time PHQ-9 Depression Total Score: 2 11/07/19 19 2:06 PM EDT documented as of this encounter Care Teams Continuing Education Instructor Relationship Specialty Start Date End Date Caitlyn Bowie MD [address] [address] PCP - General Internal Medicine 05/06/21 documented as of this encounter
--- OUTSIDE RECORDS SUMMARY | 2024-09-05 10:54 | XMS_ITS | Encounter Summary ---
Author Organization [facility] and [facility] Address [address] [place] [address] Care Team Providers Care School Leader Name Role Phone Caitlyn Bowie MD Primary Care Provider +1- [phone] Encounter Details Date Type Department Care Team (Late st Contact Info) Description 10/16/2013 Scanned Document [facility] [address] [facility], 2nd floor [facility], [address] [place], [place] [address] Suzy Kong MD [address] [place] [phone] Social History Tobacco Use Types Packs/Day [...] Description 09/30/2024 8:00 PM EDT Procedure visit [facility] [address] [place] [address] [address] [place] [address] 10/31/2024 1:00 PM EDT Telemedicine Cancer Center at [address] [place], [place] [address] Ronald Mills MD 240 [facility] Max [address] [place] [address] documented as of this encounter Visit Diagnoses Not on filedocumented in this encounter Additional Health Concerns Infection Onset Date Last Indicated Resolved Time COVID-19 03/05/2022 03/05/2022 03/15/2022 7:18 PM EDT documented as of this encounter Care Teams School Leader Relationship Specialty Start Date End Date Caitlyn Bowie MD 3400 [facility] 1 [place] [address] PCP - General Internal Medicine 05/06/21 Henry Kelly MD Pulmonary Department [address] [place] [address], [address] [place] [address] Physician Pulmonary Disease 09/06/17 06/22/20 documented as of this encounter
--- OUTSIDE RECORDS SUMMARY | 2024-09-05 10:54 | XMS_ITS | Encounter Summary ---
Author Organization [facility] and [facility] Address [address] [place] [address] Care Team Providers Care Marker Delivery Name Role Phone Caitlyn Bowie MD Primary Care Provider +1- [phone] Encounter Details Date Type Department Care Team (Late st Contact Info) Description 04/28/2015 Scanned Document [facility] Health Information Management [address] [place] [address] External, Provider Social History Tobacco Use Types [...] Description 09/30/2024 8:00 PM EDT Procedure visit [facility] [address] [place] [address] [address] [place] [address] 10/31/2024 1:00 PM EDT Telemedicine Cancer Center at [facility] 240 [facility] Building [address] [place], [place] [address] Ronald Mills MD 240 [facility] A1 [place] [address] documented as of this encounter Procedures Procedure Name Priority Date/Time Associated Diagnosis Comments LAB SCAN Routine 04/28/2015 documented in this encounter Results * Lab Scan (04/28/2015) Blood specimen (specimen) us Provider External LAB BLOOD ORDERABLES Edited Re sult - Final [facility] [place], [place], [facility] documented in this encounter Visit Diagnoses Not on filedocumented in this encounter Additional Health Concerns Infection Onset Date Last Indicated Resolved Time COVID-19 03/05/2022 03/05/2022 03/15/2022 7:18 PM EDT documented as of this encounter Care Teams Marker Delivery Relationship Specialty Start Date End Date Caitlyn Bowie MD 3400 [facility] 1 [place] [address] PCP - General Internal Medicine 05/06/21 Henry Kelly MD Pulmonary Department 175 [facility], [address] [place] [address] Physician Pulmonary Disease 09/06/17 06/22/20 documented as of this encounter
--- OUTSIDE RECORDS SUMMARY | 2024-09-05 10:55 | XMS_ITS | Encounter Summary ---
Author Organization [facility] Address [address] [place] [address] Care Team Providers Care Metal Fabricating Supervisor Name Role Phone Sharon Vides Primary Care Provider Brennan Castro MD Primary Care Provider Unavailab Hayden Montes MD Unavailable [phone] Pallavi Flood NP Unavailable [phone]- [phone] Caitlny Bowie MD Primary Care Provider Johnathon shaver Encounter Details Date Type Department Care Team Description 12/28/2018 Orders Only Medical Records [address] [place] [address] Abstract, Provider Aspiration pneumonia, unspecified aspiration pneumonia [...] (HCC) documented in this encounter Care Teams Metal Fabricating Supervisor Relationship Specialty Start Date End Date Sharon Vides PCP - General Internal Medicine 08/02/18 05/26/20 Brennan Burnett MD PCP - General Internal Medicine 05/27/20 12/07/21 Caitlyn Bowie MD [address] [place] [address] PCP - General Internal Medicine 12/08/21 Hayden Shah MD [address] [place] [address] Specialist Cardiovascular Disease 09/01/20 Pallavi Flood NP [address] [place] [address] Cardiology 09/01/20 documented as of this encounter
--- OUTSIDE RECORDS SUMMARY | 2024-09-05 10:55 | XMS_ITS | Encounter Summary ---
Author Organization [facility] Address [address] [place] [address] Care Team Providers Care Cinder Crusher Operator Name Role Phone Sharon Vides Primary Care Provider Brennan Castro MD Primary Care Provider Unavailab Hayden Montes MD Unavailable [phone] Pallavi Folod NP Unavailable +[phone]- [phone] Caitlyn Bowie MD Primary Care Provider Johnathon shaver Encounter Details Date Type Department Care Team Description 12/28/2018 Telephone Pulmonology - [address] [place] [address] Henry Kelly MD Social History [...] on filedocumented in this encounter Care Teams Cinder Crusher Operator Relationship Specialty Start Date End Date Sharon Vides PCP - General Internal Medicine 08/02/18 05/26/20 Brennan Burnett MD PCP - General Internal Medicine 05/27/20 12/07/21 Caitlyn Bowie MD [address] [place] [address] PCP - General Internal Medicine 12/08/21 Hayden Shah MD [address] [place] [address] Specialist Cardiovascular Disease 09/01/20 Pallavi Flood NP [address] [place] [address] Cardiology 09/01/20 documented as of this encounter
--- OUTSIDE RECORDS SUMMARY | 2024-09-05 10:55 | XMS_ITS | Encounter Summary ---
Author Organization [facility] Address [address] [place] [address] Care Team Providers Care Crop Duster Helper Name Role Phone Sharon Vides Primary Care Provider Brennan Castro MD Primary Care Provider Unavailab Hayden Montes MD Unavailable [phone] Pallavi Flood NP Unavailable [phone]- [phone] Caitlyn Bowie MD Primary Care Provider Johnathon shaver Encounter Details Date Type Department Care Team Description 10/03/2018 Pt. Non Urgent Medic al Question Pulmonology - [place] 175 [facility] [address] [place] [address] Henry Kelly MD Social History [...] Dr Menjivar's office had scheduled it in [place] earlier in the day of my appointment [...] on filedocumented in this encounter Care Teams Crop Duster Helper Relationship Specialty Start Date End Date Sharon Vides PCP - General Internal Medicine 08/02/18 05/26/20 Brennan Burnett MD PCP - General Internal Medicine 05/27/20 12/07/21 Caitlyn Bowie MD [address] [place] [address] PCP - General Internal Medicine 12/08/21 Hayden Shah MD [address] [place] [address] Specialist Cardiovascular Disease 09/01/20 Pallavi Flood NP [address] [place] [address] Cardiology 09/01/20 documented as of this encounter
--- OUTSIDE RECORDS SUMMARY | 2024-09-05 10:55 | XMS_ITS | Encounter Summary ---
Author Organization [facility] and [facility] Address [address] [place] [address] Care Team Providers Care Rn Clinical Resource Name Role Phone Caitlyn Bowie MD Primary Care Provider +1- [phone] Encounter Details Date Type Department Care Team (Late st Contact Info) Description 02/02/2018 Scanned Document [facility] Health Information Management [address] [place] [address] External, Provider Social History Tobacco Use Types [...] Description 09/30/2024 8:00 PM EDT Procedure visit [facility] [address] [place] [address] [address] [place] [address] 10/31/2024 1:00 PM EDT Telemedicine [facility] at [facility] 240 [facility] Building [address] [place], [place] [phone] Ronald Mills MD 240 [facility] A1 [place] [address] documented as of [...] as of this encounter Care Teams Rn Clinical Resource Relationship Specialty Start Date End Date Caitlyn Bowie MD 3400 [facility] 1 [place] [address] PCP - General Internal Medicine 05/06/21 Henry Kelly MD Pulmonary Department 175 [facility], [address] [place] [address] Physician Pulmonary Disease 09/06/17 06/22/20 documented as of this encounter
--- OUTSIDE RECORDS SUMMARY | 2024-09-05 10:55 | XMS_ITS | Encounter Summary ---
Author Organization [facility] and [facility] Address [address] [place] [address] Care Team Providers Care Property Worker Name Role Phone Caitlyn Bowie MD Primary Care Provider +1- [phone] Encounter Details Date Type Department Care Team (Late st Contact Info) Description 01/28/2018 Scanned Document [facility] Health Information Management [address] [place] [address] External, Provider Social History Tobacco Use Types [...] Description 09/30/2024 8:00 PM EDT Procedure visit [facility] [address] [place] [address] [address] [place] [address] 10/31/2024 1:00 PM EDT [facility] 240 [facility] Building [address] [place], [place] [phone] Ronald Mills MD 240 [facility] A1 [place] [address] documented as of this encounter [...] as of this encounter Care Teams Property Worker Relationship Specialty Start Date End Date Caitlyn Bowie MD 3400 [facility] 1 [place] [address] PCP - General Internal Medicine 05/06/21 Henry Kelly MD Pulmonary Department 175 [facility], [address] [place] [address] Physician Pulmonary Disease 09/06/17 06/22/20 documented as of this encounter
--- OUTSIDE RECORDS SUMMARY | 2024-09-05 10:55 | XMS_ITS | Encounter Summary ---
Author Organization [facility] Address [address] [place] [address] Care Team Providers Care Due Diligence Coordinator Name Role Phone Caitlyn Bowie MD Primary Care Provider +1- [phone] Encounter Details Date Type Department Care Team (Late st Contact Info) Description 01/27/2018 Scanned Document [facility] Health Information Management [address] [place] [address] External, Provider Social History Tobacco Use Types [...] Description 09/30/2024 8:00 PM EDT Procedure visit [facility] [address] [place] [address] [address] [place] [address] 10/31/2024 1:00 PM EDT Telemedicine [facility] at [facility] 240 [facility] Building [address] [place], [place] [phone] Ronald Mills MD 240 [facility] A1 [place] [address] documented as of this encounter [...] documented as of this encounter Care Teams Due Diligence Coordinator Relationship Specialty Start Date End Date Caitlyn Bowie MD 3400 [facility] 1 [place] [address] PCP - General Internal Medicine 05/06/21 Henry Kelly MD Pulmonary Department 175 [facility], [address] [place] [address] Physician Pulmonary Disease 09/06/17 06/22/20 documented as of this encounter
--- OUTSIDE RECORDS SUMMARY | 2024-09-05 10:55 | XMS_ITS | Encounter Summary ---
Author Organization [facility] Address [address] [place] [address] Care Team Providers Care Bed Laster Name Role Phone Sharon Vides Primary Care Provider Brennan Castro MD Primary Care Provider Unavailab Hayden Montes MD Unavailable [phone] Pallavi Flood NP Unavailable [phone]- [phone] Caitlyn Bowie MD Primary Care Provider Johnathon shaver Encounter Details Date Type Department Care Team Description 08/28/2018 Dynamotor Repairer Report Medical Records [address] [place] [address] Abstract, Provider Social History Tobacco Use Types [...] on filedocumented in this encounter Care Teams Bed Laster Relationship Specialty Start Date End Date Sharon Vides PCP - General Internal Medicine 08/02/18 05/26/20 Brennan Burnett MD PCP - General Internal Medicine 05/27/20 12/07/21 Caitlyn Bowie MD [address] [place] [address] PCP - General Internal Medicine 12/08/21 Hayden Shah MD [address] [place] [address] Specialist Cardiovascular Disease 09/01/20 Pallavi Flood NP [address] [place] [address] Cardiology 09/01/20 documented as of this encounter
--- OUTSIDE RECORDS SUMMARY | 2024-09-05 10:55 | XMS_ITS | Encounter Summary ---
Author Organization [facility] and [facility] Address [address] [place] [address] Care Team Providers Care Supervisor Education Name Role Phone Caitlyn Bowie MD Primary Care Provider +1- [phone] Encounter Details Date Type Department Care Team (Late st Contact Info) Description 01/28/2018 Scanned Document [facility] Health Information Management [address] [place] [address] External, Provider Social History Tobacco Use Types [...] Description 09/30/2024 8:00 PM EDT Procedure visit [facility] [address] [place] [address] [address] [place] [address] 10/31/2024 1:00 PM EDT Telemedicine [facility] at [facility] 240 [facility] Building [address] [place], [place] [id number] Ronald Mills MD 240 [facility] [address]1 [place] [address] documented as of this encounter Visit Diagnoses Not on filedocumented in this encounter Additional Health Concerns Infection Onset Date Last Indicated Resolved Time COVID-19 03/05/2022 03/05/2022 03/15/2022 7:18 PM EDT documented as of this encounter Care Teams Supervisor Education Relationship Specialty Start Date End Date Caitlyn Bowie MD 3400 [facility] 1 [place] [address] PCP - General Internal Medicine 05/06/21 Henry Kelly MD Pulmonary Department 175 [facility], [address] [place] [address] Physician Pulmonary Disease 09/06/17 06/22/20 documented as of this encounter
--- OUTSIDE RECORDS SUMMARY | 2024-09-05 10:55 | XMS_ITS | Encounter Summary ---
Author Organization [facility] Address [address] [place] [address] Care Team Providers Care Art Model Name Role Phone Sharon Vides Primary Care Provider Brennan Castro MD Primary Care Provider Unavailab Hayden Montes MD Unavailable [phone] Pallavi Flood NP Unavailable [phone]- [phone] Caitlyn Bowie MD Primary Care Provider Johnathon shaver Encounter Details Date Type Department Care Team Description 12/28/2018 Orders Only Pulmonology - [address] [place] [address] Henry Kelly MD Chest pain, [...] Primary documented in this encounter Care Teams Art Model Relationship Specialty Start Date End Date Sharon Vides PCP - General Internal Medicine 08/02/18 05/26/20 Brennan Burnett MD PCP - General Internal Medicine 05/27/20 12/07/21 Caitlyn [address] MD [address] [place] [address] PCP - General Internal Medicine 12/08/21 Hayden Shah MD [address] [place] [address] Specialist Cardiovascular Disease 09/01/20 Pallavi Flood NP [address] [place] [id number] Cardiology 09/01/20 documented as of this encounter
--- OUTSIDE RECORDS SUMMARY | 2024-09-05 10:55 | XMS_ITS | Encounter Summary ---
Author Organization [facility] Address [address] [place] [address] Care Team Providers Care Instrument Installer Name Role Phone Caitlyn Bowie MD Primary Care Provider +1- [phone] Encounter Details Date Type Department Care Team (Late st Contact Info) Description 02/01/2018 Scanned Document [facility] Health Information Management [address] [place] [address] External, Provider Social History Tobacco Use Types [...] Description 09/30/2024 8:00 PM EDT Procedure visit [facility] [address] [place] [address] [address] [place] [address] 10/31/2024 1:00 PM EDT Telemedicine [facility] at [facility] 240 [facility] Building [address] [place], [place] [phone] Ronald Mills MD 240 [facility] [address]1 [place] [address] documented as of this encounter [...] documented as of this encounter Care Teams Instrument Installer Relationship Specialty Start Date End Date Caitlyn Bowie MD 3400 [facility] 1 [place] [address] PCP - General Internal Medicine 05/06/21 Henry Kelly MD Pulmonary Department 175 [facility], [address] [place] [address] Physician Pulmonary Disease 09/06/17 06/22/20 documented as of this encounter
--- OUTSIDE RECORDS SUMMARY | 2024-09-05 10:55 | XMS_ITS | Encounter Summary ---
Author Organization [facility] Address [address] [place] [address] Care Team Providers Care Traffic Engineer Name Role Phone Caitlyn Bowie MD Primary Care Provider +1- [phone] Encounter Details Date Type Department Care Team (Late st Contact Info) Description 11/09/2014 Scanned Document [facility] Health Information Management [address] [place] [address] External, Provider Social History Tobacco Use Types [...] Description 09/30/2024 8:00 PM EDT Procedure visit [facility] [address] [place] [address] [address] [place] [address] 10/31/2024 1:00 PM EDT Telemedicine [facility] at [facility] 240 [facility] Building [address] [place], [place] [address] Ronald Mills MD 240 [facility] A1 [place] [address] documented as of this encounter Visit Diagnoses Not on filedocumented in this encounter Additional Health Concerns Infection Onset Date Last Indicated Resolved Time COVID-19 03/05/2022 03/05/2022 03/15/2022 7:18 PM EDT documented as of this encounter Care Teams Traffic Engineer Relationship Specialty Start Date End Date Caitlyn Bowie MD 3400 [facility] [address] 1 [place] [address] PCP - General Internal Medicine 05/06/21 Henry Kelly MD Pulmonary Department 175 [facility], [address] [place] [address] Physician Pulmonary Disease 09/06/17 06/22/20 documented as of this encounter
--- OUTSIDE RECORDS SUMMARY | 2024-09-05 10:55 | XMS_ITS | Encounter Summary ---
Author Organization [facility] Address [address] [place] [address] Care Team Providers Care Visual Training Aide Name Role Phone Sharon Vides Primary Care Provider Brennan Castro MD Primary Care Provider Unavailab Hayden Montes MD Unavailable [phone] Pallavi Flood NP Unavailable [phone]- [phone] Caitlyn Bowie MD Primary Care Provider Johnathon shaver Encounter Details Date Type Department Care Team Description 09/05/2018 Night Triage Doc Medical Records [address] [place] [address] Abstract, Provider Social History Tobacco Use Types [...] on filedocumented in this encounter Care Teams Visual Training Aide Relationship Specialty Start Date End Date Sharon Vides PCP - General Internal Medicine 08/02/18 05/26/20 Brennan Burnett MD PCP - General Internal Medicine 05/27/20 12/07/21 Caitlyn Bowie MD [address] [place] [address] PCP - General Internal Medicine 12/08/21 Hayden Shah MD [address] [place] [address] Specialist Cardiovascular Disease 09/01/20 Pallavi Flood NP [address] [place] [address] Cardiology 09/01/20 documented as of this encounter
--- OUTSIDE RECORDS SUMMARY | 2024-09-05 10:55 | XMS_ITS | Encounter Summary ---
Author Organization [facility] Address [address] [place] [address] Care Team Providers Care Test Manager Name Role Phone Sharon Vides Primary Care Provider Brennan Castro MD Primary Care Provider Unavailab Hayden Montes MD Unavailable [phone] Pallavi Flood NP Unavailable [phone] Caitlyn Bowie MD Primary Care Provider Johnathon shaver Encounter Details Date Type Department Care Team Description 11/28/2018 Orders Only Pulmonology - [address] [place] [address] Henry Kelly MD Social History [...] on filedocumented in this encounter Care Teams Test Manager Relationship Specialty Start Date End Date Sharon Vides PCP - General Internal Medicine 08/02/18 05/26/20 Brennan Burnett MD PCP - General Internal Medicine 05/27/20 12/07/21 Caitlyn Bowie MD [address] [place] [address] PCP - General Internal Medicine 12/08/21 Hayden Shah MD [address] [place], [place] [phone] Specialist Cardiovascular Disease 09/01/20 Pallavi Flood NP [address] [place] [address] Cardiology 09/01/20 documented as of this encounter
--- OUTSIDE RECORDS SUMMARY | 2024-09-05 10:55 | XMS_ITS | Encounter Summary ---
Author Organization [facility] Address [address] [place] [address] Care Team Providers Care Vamp Wetter Name Role Phone Caitlyn Bowie MD Primary Care Provider +1- [phone] Encounter Details Date Type Department Care Team (Late st Contact Info) Description 01/26/2018 Scanned Document [facility] Health Information Management [address] [place] [address] External, Provider Social History Tobacco Use Types [...] Description 09/30/2024 8:00 PM EDT Procedure visit [facility] [address] [place] [address] [address] [place] [address] 10/31/2024 1:00 PM EDT Telemedicine Cancer Center at [facility] 240 [facility] [address] [place], [place] [address] Ronald Mills MD 240 [facility] A1 [place] [address] documented as of this encounter [...] documented as of this encounter Care Teams Vamp Wetter Relationship Specialty Start Date End Date Caitlyn Bowie MD [address] [facility] 1 [place] [address] PCP - General Internal Medicine 05/06/21 Henry Kelly MD Pulmonary Department 175 [facility], [address] [place] [address] Physician Pulmonary Disease 09/06/17 06/22/20 documented as of this encounter
--- OUTSIDE RECORDS SUMMARY | 2024-09-05 10:55 | XMS_ITS | Encounter Summary ---
Author Organization [facility] and [facility] Address [address] [place] [address] Care Team Providers Care Licensed Clinical Psychologist Name Role Phone Caitlyn Bowie MD Primary Care Provider +1- [phone] Encounter Details Date Type Department Care Team (Late st Contact Info) Description 02/02/2018 Scanned Document [facility] Health Information Management [address] [place] [address] External, Provider Social History Tobacco Use Types [...] EDT Procedure visit [facility] [address] [place] [address] [address] [place] [address] 10/31/2024 1:00 PM EDT Telemedicine [facility] Center at [facility] 240 [facility] Building [address] [place], [place] [address] Ronald Mills MD 240 [facility] A1 [place] [address] documented as of this encounter Visit Diagnoses Not on filedocumented in this encounter Additional Health Concerns Infection Onset Date Last Indicated Resolved Time COVID-19 03/05/2022 03/05/2022 03/15/2022 7:18 PM EDT documented as of this encounter Care Teams Licensed Clinical Psychologist Relationship Specialty Start Date End Date Caitlyn Bowie MD 3400 [facility] 1 [place] [address] PCP - General Internal Medicine 05/06/21 Henry Kelly MD Pulmonary Department 175 [facility], [address] [place] [address] Physician Pulmonary Disease 09/06/17 06/22/20 documented as of this encounter
--- OUTSIDE RECORDS SUMMARY | 2024-09-05 10:55 | XMS_ITS | Encounter Summary ---
Author Organization [facility] Address [address] [place] [address] Care Team Providers Care Flap Maker Name Role Phone Caitlyn Bowie MD Primary Care Provider +1- [phone] Encounter Details Date Type Department Care Team (Late st Contact Info) Description 01/27/2018 Scanned Document [facility] Health Information Management [address] [place] [address] External, Provider Social History Tobacco Use Types [...] Description 09/30/2024 8:00 PM EDT Procedure visit [facility] [address] [place] [address] [address] [place] [address] 10/31/2024 1:00 PM EDT Telemedicine Cancer [facility] at [facility] [address] [facility] [address] [place], [place] [address] Ronald Mills MD 240 [facility] A[address] [place] [address] documented as of this encounter Visit Diagnoses Not on filedocumented in this encounter Additional Health Concerns Infection Onset Date Last Indicated Resolved Time COVID-19 03/05/2022 03/05/2022 03/15/2022 7:18 PM EDT documented as of this encounter Care Teams Flap Maker Relationship Specialty Start Date End Date Caitlyn Bowie MD 3400 [facility] 1 [place] [address] PCP - General Internal Medicine 05/06/21 Henry Kelly MD Pulmonary Department 175 [facility], [address] [place] [address] Physician Pulmonary Disease 09/06/17 06/22/20 documented as of this encounter
--- OUTSIDE RECORDS SUMMARY | 2024-09-05 10:55 | XMS_ITS | Encounter Summary ---
Author Organization [facility] Address [address] [place] [address] Care Team Providers Care Technology Teacher Name Role Phone Sharon Vides Primary Care Provider Unava ilable Brennan Burnett MD Primary Care Provider Unavailab Hayden Montes MD Unavailable [phone] Pallavi Flood NP Unavailable [phone]- [phone] Caitlyn Bowie MD Primary Care Provider Unava ilable Reason for Visit * Reason Onset Date Comments Pulmonary Problem 09[facility]21[facility] Encounter Details Date Type Department Care Team Description 09/21/2018 Telephone Pulmonology - [address] [place] [address] Henry Kelly MD Pulmonary Problem ([facility]) Social History Tobacco Use [...] , OP notes and labs faxed to [facility]. * Telephone Encounter - Nasima Sr M.A. - 10/02/2018 11:57 AM EDT I called patient back and she has been scheduled with the [facility] for a PFT. * Telephone Encounter [...] her to a Dr Kerwin Menjivar in [place]. Please advise. * Telephone Encounter - Paloma Kelly - 09/21/2018 8:53 AM EDT Symptoms patient is presenting: crackling on her lung If pain or injury related was it due to an accident at work or from a motor vehicle accident? NO If yes, gather 3rd green party insurance information Date of accident/Injury: How long has patient had these symptoms?: 2 days PCP: Sharon Vides MD [place] / [place] / Product Type: MEDICARE [id number] documented in this encounter Plan of Treatment Not on file documented as of this encounter Visit Diagnoses Not on filedocumented in this encounter Care Teams Technology Teacher Relationship Specialty Start Date End Date Sharon Vides PCP - General Internal Medicine 08/02/18 05/26/20 Brennan Burnett MD PCP - General Internal Medicine 05/27/20 12/07/21 Caitlyn Bowie MD [address] [place] [address] PCP - General Internal Medicine 12/08/21 Hayden Shah MD [address] [place] [address] Specialist Cardiovascular Disease 09/01/20 Pallavi Flood NP [address] [place] [address] Cardiology 09/01/20 documented as of this encounter
--- OUTSIDE RECORDS SUMMARY | 2024-09-05 10:55 | XMS_ITS | Encounter Summary ---
Author Organization [facility] Address [address] [place] [address] Care Team Providers Care Fraud Manager Name Role Phone Caitlyn Bowie MD Primary Care Provider +1- [phone] Encounter Details Date Type Department Care Team (Late st Contact Info) Description 11/07/2014 Scanned Document [facility] Health Information Management [address] [place] [address] External, Provider Social History Tobacco Use Types [...] 09/30/2024 8:00 PM EDT Procedure visit [facility] [address] [place] [address] [address] [place] [address] 10/31/2024 1:00 PM EDT Telemedicine Cancer Center at [facility] 240 [facility] [address] [place], [place] [address] Ronald Mills MD 240 [facility] [address]1 [place] [address] documented as of this encounter Visit Diagnoses Not on filedocumented in this encounter Additional Health Concerns Infection Onset Date Last Indicated Resolved Time COVID-19 03/05/2022 03/05/2022 03/15/2022 7:18 PM EDT documented as of this encounter Care Teams Fraud Manager Relationship Specialty Start Date End Date Caitlyn Bowie MD 3400 [facility] [address] 1 [place] [address] PCP - General Internal Medicine 05/06/21 Henry Kelly MD Pulmonary Department 175 [facility], [address] [place] [address] Physician Pulmonary Disease 09/06/17 06/22/20 documented as of this encounter
--- OUTSIDE RECORDS SUMMARY | 2024-09-05 10:56 | XMS_ITS | Encounter Summary ---
Author Organization [facility] Address [address] [place] [address] Care Team Providers Care Image Processing Engineer Name Role Phone Caitlyn Bowie MD Primary Care Provider +1- [phone] Encounter Details Date Type Department Care Team (Late st Contact Info) Description 03/13/2015 Scanned Document [facility] Health Information Management [address] [place] [address] External, Provider Social History Tobacco Use Types [...] 09/30/2024 8:00 PM EDT Procedure visit [facility] [address] [place] [address] [address] [place] [address] 10/31/2024 1:00 PM EDT Telemedicine [facility] Center at [facility] 240 [facility] [address] [place], [place] [address] Ronald Mills MD 240 [facility] A1 [place] [address] documented as of this encounter Procedures Procedure Name Priority Date/Time Associated Diagnosis Comments LAB SCAN Routine 02/16/2015 LAB SCAN Routine 02/16/2015 documented in this encounter Results * Lab Scan (02/16/2015) Blood specimen (specimen) Provider External LAB BLOOD ORDERABLES Final Res ult Performing Organization Address [facility] Co de Phone Number [facility] * Lab Scan (02/16/2015) Blood specimen (specimen) Provider External LAB BLOOD ORDERABLES Final Res ult Performing Organization Address [facility] Co de Phone Number [facility] documented in this encounter Visit Diagnoses Not on filedocumented in this encounter Additional Health Concerns Infection Onset Date Last Indicated Resolved Time COVID-19 03/05/2022 03/05/2022 03/15/2022 7:18 PM EDT documented as of this encounter Care Teams Image Processing Engineer Relationship Specialty Start Date End Date Caitlyn Bowie MD 3400 [facility] 1 [place] [address] PCP - General Internal Medicine 05/06/21 Henry Kelly MD Pulmonary Department 175 [facility], [address] [place] [address] Physician Pulmonary Disease 09/06/17 06/22/20 documented as of this encounter
--- OUTSIDE RECORDS SUMMARY | 2024-09-05 10:56 | XMS_ITS | Encounter Summary ---
Author Organization [facility] Address [address] [place] [address] Care Team Providers Care Mainspring Strip Inspector Name Role Phone Caitlyn Bowie MD Primary Care Provider +1- [phone] Encounter Details Date Type Department Care Team (Late Contact Info) Description 11/18/2021 Scanned Document [facility] Health Information Management [address] [place] [address] External, Provider Social History Tobacco Use Types [...] Description 09/30/2024 8:00 PM EDT Procedure visit [facility] [address] [place] [address] [address] [place] [address] 10/31/2024 1:00 PM EDT Telemedicine [facility] at [facility] 240 [facility] [address] [place] [address] Ronald Mills MD 240 [facility] [address]1 [place] [address] documented as of this encounter Visit Diagnoses Not on filedocumented in this encounter Additional Health Concerns Infection Onset Date Last Indicated Resolved Time COVID-19 03/05/2022 03/05/2022 03/15/2022 7:18 PM EDT Assessment Noted Time PHQ-9 Depression Total Score: 2 11/07/19 19 2:06 PM EDT documented as of this encounter Care Teams Mainspring Strip Inspector Relationship Specialty Start Date End Date Caitlyn Bowie MD [address] [address] PCP - General Internal Medicine 05/06/21 documented as of this encounter
--- OUTSIDE RECORDS SUMMARY | 2024-09-05 10:56 | XMS_ITS | Encounter Summary ---
Author Organization [facility] Address [address] [place] [address] Care Team Providers Care Laboratory Director Name Role Phone Caitlyn Bowie MD Primary Care Provider +1- [phone] Encounter Details Date Type Department Care Team (Late st Contact Info) Description 04/03/2018 Scanned Document [facility] [address] [place] [address] Provider, historical . Social History Tobacco Use [...] Description 09/30/2024 8:00 PM EDT Procedure visit [facility] [address] [place] [address] [address] [place] [address] 10/31/2024 1:00 PM EDT Telemedicine Cancer Center at [address] [place], [place] [address] Ronald Mills MD 240 [facility] A1 [place] [address] documented as of this [...] documented as of this encounter Care Teams Laboratory Director Relationship Specialty Start Date End Date Caitlyn Bowie MD 3400 [facility] 1 [place] [address] PCP - General Internal Medicine 05/06/21 Henry Kelly MD Pulmonary Department 175 [facility], [address] [place] [address] Physician Pulmonary Disease 09/06/17 06/22/20 documented as of this encounter
--- OUTSIDE RECORDS SUMMARY | 2024-09-05 10:56 | XMS_ITS | Encounter Summary ---
Author Organization [facility] Address [address] [place] [address] Care Team Providers Care Order Entry Specialist Name Role Phone Caitlyn Bowie MD Primary Care Provider +1- [phone] Encounter Details Date Type Department Care Team (Late st Contact Info) Description 06/26/2018 Scanned Document [facility] Health Information Management [address] [place] [address] External, Provider Social History Tobacco Use Types [...] Description 09/30/2024 8:00 PM EDT Procedure visit [facility] [address] [place] [address] [address] [place] [address] 10/31/2024 1:00 PM EDT Telemedicine [facility] Center at [facility] 240 [facility] Building [address] [place], [place] [address] Ronald Mills MD 240 [facility] [address]1 [place] [address] documented as of this encounter Visit Diagnoses Not on filedocumented in this encounter Additional Health Concerns Infection Onset Date Last Indicated Resolved Time COVID-19 03/05/2022 03/05/2022 03/15/2022 7:18 PM EDT documented as of this encounter Care Teams Order Entry Specialist Relationship Specialty Start Date End Date Caitlyn Bowie MD [address] [facility] 1 [place] [address] PCP - General Internal Medicine 05/06/21 Henry Kelly MD Pulmonary Department 175 [facility], [address] [place] [address] Physician Pulmonary Disease 09/06/17 06/22/20 documented as of this encounter
--- OUTSIDE RECORDS SUMMARY | 2024-09-05 10:56 | XMS_ITS | Encounter Summary ---
Author Organization [facility] Address [address] [place] [address] Care Team Providers Care Wildland Firefighter Name Role Phone Sharon Vides Primary Care Provider Brennan Castro MD Primary Care Provider Unavailab Hayden Montes MD Unavailable [phone] Pallavi Flood NP Unavailable [phone]- [phone] Caitlyn Bowie MD Primary Care Provider Johnathon shaver Encounter Details Date Type Department Care Team Description 12/16/2018 [facility] Medical Records [address] [place] [address] Abstract, Provider Social History Tobacco Use Types [...] on filedocumented in this encounter Care Teams Wildland Firefighter Relationship Specialty Start Date End Date Sharon Vides PCP - General Internal Medicine 08/02/18 05/26/20 Brennan Burnett MD PCP - General Internal Medicine 05/27/20 12/07/21 Caitlyn Bowie MD [address] [place] [address] PCP - General Internal Medicine 12/08/21 Hayden Shah MD [address] [place] [address] Specialist Cardiovascular Disease 09/01/20 Pallavi Flood NP [address] [place] [address] Cardiology 09/01/20 documented as of this encounter
--- OUTSIDE RECORDS SUMMARY | 2024-09-05 10:56 | XMS_ITS | Encounter Summary ---
Author Organization [facility] Address [address] [place] [address] Care Team Providers Care Hydrogen Plant Operator Name Role Phone Caitlyn Bowie MD Primary Care Provider +1- [phone] Encounter Details Date Type Department Care Team (Late st Contact Info) Description 03/14/2018 Scanned Document [facility] Health Information Management [address] [place] [address] External, Provider Social History Tobacco Use Types [...] Description 09/30/2024 8:00 PM EDT Procedure visit [facility] [address] [place] [address] [address] [place] [address] 10/31/2024 1:00 PM EDT Telemedicine Cancer Center at [facility] [address] [facility] [address] [place], [place] [phone] Ronald Mills MD 240 [facility] A1 [place] [address] documented as of this encounter [...] documented as of this encounter Care Teams Hydrogen Plant Operator Relationship Specialty Start Date End Date Caitlyn Bowie MD 3400 [facility] 1 [place] [address] PCP - General Internal Medicine 05/06/21 Henry Kelly MD Pulmonary Department 175 [facility], [address] [place] [address] Physician Pulmonary Disease 09/06/17 06/22/20 documented as of this encounter
--- OUTSIDE RECORDS SUMMARY | 2024-09-05 10:56 | XMS_ITS | Encounter Summary ---
Author Organization [facility] and [facility] Address [address] [place] [address] Care Team Providers Care School Age Program Associate Name Role Phone Caitlyn Bowie MD Primary Care Provider +1- [phone] Encounter Details Date Type Department Care Team (Late st Contact Info) Description 06/07/2021 Scanned Document Onco-Oncology Program at [address] [address] Norma Renee MD [address] [place] [address] 2 [place] [phone] Social History Tobacco Use Types Packs/Day Years [...] 09/30/2024 8:00 PM EDT Procedure visit [facility] [address] [place] [phone] 10/31/2024 1:00 PM EDT Telemedicine Cancer Center at [address] [place], [place] [address] Ronald Mills MD 240 [facility] Max [address] [place] [address] documented as of this encounter Visit Diagnoses Not on filedocumented in this encounter Additional Health Concerns Infection Onset Date Last Indicated Resolved Time COVID-19 03/05/2022 03/05/2022 03/15/2022 7:18 PM EDT Assessment Noted Time PHQ-9 Depression Total Score: 2 11/07/19 19 2:06 PM EDT documented as of this encounter Care Teams School Age Program Associate Relationship Specialty Start Date End Date Caitlyn Bowie MD [address] [address] PCP - General Internal Medicine 05/06/21 documented as of this encounter
--- OUTSIDE RECORDS SUMMARY | 2024-09-05 10:56 | XMS_ITS | Encounter Summary ---
Author Organization [facility] Address [address] [place] [address] Care Team Providers Care Sports Manager Name Role Phone Caitlyn Bowie MD Primary Care Provider +1- [phone] Encounter Details Date Type Department Care Team (Late st Contact Info) Description 10/15/2018 Scanned Document [facility] Health Information Management [address] [place] [address] External, Provider Social History Tobacco Use Types [...] 09/30/2024 8:00 PM EDT Procedure visit [facility] [address] [place] [address] [address] [place] [address] 10/31/2024 1:00 PM EDT Telemedicine [facility] at [facility] 240 [facility] [address] [place], [place] [address] Ronald Mills MD 240 [facility] A1 [place] [address] documented as of this encounter Visit Diagnoses Not on filedocumented in this encounter Additional Health Concerns Infection Onset Date Last Indicated Resolved Time COVID-19 03/05/2022 03/05/2022 03/15/2022 7:18 PM EDT documented as of this encounter Care Teams Sports Manager Relationship Specialty Start Date End Date Caitlyn Bowie MD 3400 [facility] 1 [place] [address] PCP - General Internal Medicine 05/06/21 Henry Kelly MD Pulmonary Department 175 [facility], [address] [place] [address] Physician Pulmonary Disease 09/06/17 06/22/20 documented as of this encounter
--- OUTSIDE RECORDS SUMMARY | 2024-09-05 10:56 | XMS_ITS | Encounter Summary ---
Author Organization [facility] Address [address] [place] [address] Care Team Providers Care Python Java Developer Name Role Phone Caitlyn Bowie MD Primary Care Provider +1- [phone] Reason for Visit * Reason Comments Advice Only Encounter Details Date Type Department Care Team ([facility] st Contact Info) Description 06/01/2021 Telephone [facility] at [address] [phone] Ronald Mills MD [address] [place] [address] Advice Only Social History Tobacco Use [...] added that she's called before and sent Systems Integration messages but hasn't received a reply,[phone]. documented in this encounter Plan of Treatment Upcoming Encounters Date Type Department Care Team (Late st Contact Info) Description 09/30/2024 8:00 PM EDT Procedure visit [facility] [address] [place] [address] [address] [place] [address] 10/31/2024 1:00 PM EDT Telemedicine Cancer Center at [address] [place], [place] [address] Ronald Mills MD 240 [facility] A1 [place] [address] documented as of this encounter Visit Diagnoses Not on filedocumented in this encounter Additional Health Concerns Infection Onset Date Last Indicated Resolved Time COVID-19 03/05/2022 03/05/2022 03/15/2022 7:18 PM EDT Assessment Noted Time PHQ-9 Depression Total Score: 2 11/07/19 19 2:06 PM EDT documented as of this encounter Care Teams Python Java Developer Relationship Specialty Start Date End Date Caitlyn Bowie MD [address] [address] PCP - General Internal Medicine 05/06/21 documented as of this encounter
--- OUTSIDE RECORDS SUMMARY | 2024-09-05 10:56 | XMS_ITS | Encounter Summary ---
Author Organization [facility] and [facility] Address [address] [place] [address] Care Team Providers Care Copy Center Associate Name Role Phone Caitlyn Bowie MD Primary Care Provider +1- [phone] Encounter Details Date Type Department Care Team (Late st Contact Info) Description 06/07/2021 Scanned Document Onco-Oncology Program at [address] [address] Norma Renee MD [address] [place] [address] 2 [place] [phone] Social History Tobacco Use Types Packs/Day Years [...] Description 09/30/2024 8:00 PM EDT Procedure visit [facility] [address] [place] [phone] 10/31/2024 1:00 PM EDT Telemedicine Cancer Center at [address] [place], [place] [address] Ronald Mlils MD 240 [facility] [address] [place] [address] documented as of this encounter Visit Diagnoses Not on filedocumented in this encounter Additional Health Concerns Infection Onset Date Last Indicated Resolved Time COVID-19 03/05/2022 03/05/2022 03/15/2022 7:18 PM EDT Assessment Noted Time PHQ-9 Depression Total Score: 2 11/07/19 19 2:06 PM EDT documented as of this encounter Care Teams Copy Center Associate Relationship Specialty Start Date End Date Caitlyn Bowie MD [address] [address] PCP - General Internal Medicine 05/06/21 documented as of this encounter
--- OUTSIDE RECORDS SUMMARY | 2024-09-05 10:56 | XMS_ITS | Encounter Summary ---
Author Organization [facility] Address [address] [place] [address] Care Team Providers Care Game Engineer Name Role Phone Sharon Vides Primary Care Provider Unava ilable Brennan Burnett MD Primary Care Provider Unavailab Hayden Montes MD Unavailable [phone] Pallavi Flood NP Unavailable [phone]- [phone] Caitlyn Bowie MD Primary Care Provider Unava ilable Reason for Visit * Reason Onset Date Comments TEST RESULTS 12/07/2018 XRAY OF LUNGS Encounter Details Date Type Department Care Team Description 12/07/2018 Telephone Pulmonology - [place] [address] [facility] [address] [place] [address] Andre Benites PA-C [address] [facility] [address] [place] [phone] TEST RESULTS (XRAY OF LUNGS) Social History [...] on filedocumented in this encounter Care Teams Game Engineer Relationship Specialty Start Date End Date Sharon Vides PCP - General Internal Medicine 08/02/18 05/26/20 Brennan Burnett MD PCP - General Internal Medicine 05/27/20 12/07/21 Caitlyn Bowie MD [address] [place] [address] PCP - General Internal Medicine 12/08/21 Hayden Shah MD [address] [place] [address] Specialist Cardiovascular Disease 09/01/20 Pallavi Flood NP [address] [place] [address] Cardiology 09/01/20 documented as of this encounter
--- OUTSIDE RECORDS SUMMARY | 2024-09-05 10:56 | XMS_ITS | Encounter Summary ---
Author Organization [facility] and [facility] Address [address] [place] [address] Care Team Providers Care Loss Prevention Lead Name Role Phone Caitlyn Bowie MD Primary Care Provider +1- [phone] Encounter Details Date Type Department Care Team (Late st Contact Info) Description 10/08/2021 Scanned Document INTERFACE DEFAULT [address] [place] [address] System, Provider Not In Social History Tobacco [...] Description 09/30/2024 8:00 PM EDT Procedure visit [facility] [address] [place] [address] [address] [place] [address] 10/31/2024 1:00 PM EDT Telemedicine Cancer Center at [facility] 240 [facility] [address] [place] [address] Ronald Mills MD 240 [facility] A1 [place] [address] documented as of this encounter Procedures Procedure [...] documented as of this encounter Care Teams Loss Prevention Lead Relationship Specialty Start Date End Date Caitlyn Bowie MD [facility] [address] [address] PCP - General Internal Medicine 05/06/21 documented as of this encounter
--- OUTSIDE RECORDS SUMMARY | 2024-09-05 10:56 | XMS_ITS | Encounter Summary ---
Author Organization [facility] Address [address] [place] [address] Care Team Providers Care Can Machine Operator Name Role Phone Caitlyn Bowie MD Primary Care Provider +1- [phone] Encounter Details Date Type Department Care Team (Late st Contact Info) Description 11/18/2021 Scanned Document INTERFACE DEFAULT [address] [place] [address] System, Provider Not In Social History Tobacco [...] Description 09/30/2024 8:00 PM EDT Procedure visit [facility] [address] [place] [address] [address] [place] [address] 10/31/2024 1:00 PM EDT Telemedicine [facility] at [facility] 240 [facility] [address] [place] [address] Ronald Mills MD 240 [facility] A1 [place] [address] documented as of this encounter Visit Diagnoses Not on filedocumented in this encounter Additional Health Concerns Infection Onset Date Last Indicated Resolved Time COVID-19 03/05/2022 03/05/2022 03/15/2022 7:18 PM EDT Assessment Noted Time PHQ-9 Depression Total Score: 2 11/07/19 19 2:06 PM EDT documented as of this encounter Care Teams Can Machine Operator Relationship Specialty Start Date End Date Caitlyn Bowie MD [address] [address] PCP - General Internal Medicine 05/06/21 documented as of this encounter
--- OUTSIDE RECORDS SUMMARY | 2024-09-05 10:56 | XMS_ITS | Encounter Summary ---
Author Organization [facility] and [facility] Address [address] [place] [address] Care Team Providers Care Bingo Manager Name Role Phone Caitlyn Bowie MD Primary Care Provider +1- [phone] Encounter Details Date Type Department Care Team (Late st Contact Info) Description 12/04/2014 Scanned Document [facility] Health Information Management [address] [place] [address] External, Provider Social History Tobacco Use Types [...] Description 09/30/2024 8:00 PM EDT Procedure visit [facility] [address] [place] [address] [address] [place] [address] 10/31/2024 1:00 PM EDT Telemedicine Cancer Center at [facility] 240 [facility] [address] [place], [place] [address] Ronald Mills MD 240 [facility] A1 [place] [address] documented as of this encounter Procedures Procedure Name Priority Date/Time Associated Diagnosis Comments LAB SCAN Routine 12/04/2014 documented in this encounter Results * Lab Scan (12/04/2014) Blood specimen (specimen) us Provider External LAB BLOOD ORDERABLES Final Res ult Performing Organization Address City/State/[facility] Co de Phone Number [facility] documented in this encounter Visit Diagnoses Not on filedocumented in this encounter Additional Health Concerns Infection Onset Date Last Indicated Resolved Time COVID-19 03/05/2022 03/05/2022 03/15/2022 7:18 PM EDT documented as of this encounter Care Teams Bingo Manager Relationship Specialty Start Date End Date Caitlyn Bowie MD 3400 [facility] Max 1 [place] [address] PCP - General Internal Medicine 05/06/21 Henry Kelly MD Pulmonary Department 175 [facility], [address] [place] [address] Physician Pulmonary Disease 09/06/17 06/22/20 documented as of this encounter
--- OUTSIDE RECORDS SUMMARY | 2024-09-05 10:56 | XMS_ITS | Encounter Summary ---
Author Organization [facility] Address [address] [place] [address] Care Team Providers Care Splicing Supervisor Name Role Phone Sharon Vides Primary Care Provider Unava ilable Brennan Burnett MD Primary Care Provider Unavailab Hayden Montes MD Unavailable [phone] Pallavi Flood NP Unavailable [phone]- [phone] Caitlyn Bowie MD Primary Care Provider Unava ilable Reason for Visit * Reason Onset Date Comments refill request 01/28/2019 Encounter Details Date Type Department Care Team Description 01/28/2019 Refill Pulmonology - [address] [place] [address] Henry Kelly MD refill request [...] / Plan: [place] / Product Type: MEDICARE [id number] documented in this encounter Plan of Treatment Not on file documented as of this encounter Visit Diagnoses Not on filedocumented in this encounter Care Teams Splicing Supervisor Relationship Specialty Start Date End Date Sharon Vides PCP - General Internal Medicine 08/02/18 05/26/20 Brennan Burnett MD PCP - General Internal Medicine 05/27/20 12/07/21 C[address] [place] [address] PCP - General Internal Medicine 12/08/21 Hayden Shah MD [address] [place] [address] Specialist Cardiovascular Disease 09/01/[address] NP [address] [place] [address] Cardiology 09/01/20 documented as of this encounter
--- OUTSIDE RECORDS SUMMARY | 2024-09-05 10:56 | XMS_ITS | Encounter Summary ---
Author Organization [facility] Address [address] [place] [address] Care Team Providers Care Customer Account Manager Name Role Phone Caitlyn Bowie MD Primary Care Provider +1- [phone] Encounter Details Date Type Department Care Team (Late st Contact Info) Description 07/30/2018 Scanned Document [facility] Health Information Management [address] [place] [address] External, Provider Social History Tobacco Use Types [...] Description 09/30/2024 8:00 PM EDT Procedure visit [facility] [address] [place] [address] [address] [place] [address] 10/31/2024 1:00 PM EDT Telemedicine Cancer Center at [facility] 240 [facility] [address] [place], [place] [address] Ronald Mills MD 240 [facility] A1 [place] [address] documented as of [...] as of this encounter Care Teams Customer Account Manager Relationship Specialty Start Date End Date Caitlyn Bowie MD 3400 [facility] 1 [place] [address] PCP - General Internal Medicine 05/06/21 Henry Kelly MD Pulmonary Department 175 [facility], [address] [place] [address] Physician Pulmonary Disease 09/06/17 06/22/20 documented as of this encounter
--- OUTSIDE RECORDS SUMMARY | 2024-09-05 10:56 | XMS_ITS | Encounter Summary ---
Author Organization [facility] Address [address] [place] [address] Care Team Providers Care Consumer Product Advisor Name Role Phone Caitlyn Bowie MD Primary Care Provider +1- [phone] Encounter Details Date Type Department Care Team (Late st Contact Info) Description 08/07/2018 Scanned Document [facility] Health Information Management [address] [place] [address] External, Provider Social History Tobacco Use Types [...] Description 09/30/2024 8:00 PM EDT Procedure visit [facility] [address] [place] [address] [address] [place] [address] 10/31/2024 1:00 PM EDT Telemedicine [facility] 240 [facility] [address] [place], [place] [address] Ronald Mills MD 240 [facility] A1 [place] [address] documented as of this encounter Visit Diagnoses Not on filedocumented in this encounter Additional Health Concerns Infection Onset Date Last Indicated Resolved Time COVID-19 03/05/2022 03/05/2022 03/15/2022 7:18 PM EDT documented as of this encounter Care Teams Consumer Product Advisor Relationship Specialty Start Date End Date Caitlyn Bowie MD 3400 [facility] 1 [place] [address] PCP - General Internal Medicine 05/06/21 Henry Kelly MD Pulmonary Department 175 [facility], [address] [place] [address] Physician Pulmonary Disease 09/06/17 06/22/20 documented as of this encounter
--- OUTSIDE RECORDS SUMMARY | 2024-09-05 10:56 | XMS_ITS | Encounter Summary ---
Author Organization [facility] and [facility] Address [address] [place] [address] Care Team Providers Care Honey Grader And Blender Name Role Phone Caitlyn Bowie MD Primary Care Provider +1- [phone] Encounter Details Date Type Department Care Team (Late st Contact Info) Description 03/26/2015 Scanned Document Cardiovascular Medicine at [address] [place] [address] Norma Renee MD [address] [place] [phone] Social History Tobacco Use Types Packs/Day Years [...] Description 09/30/2024 8:00 PM EDT Procedure visit [facility] [address] [place] [address] [address] [place] [address] 10/31/2024 1:00 PM EDT Telemedicine Cancer Center at [facility] 240 [facility] [address] [place] [address] Ronald Mills MD 240 [facility] [address] [place] [address] documented as of this encounter Visit Diagnoses Not on filedocumented in this encounter Additional Health Concerns Infection Onset Date Last Indicated Resolved Time COVID-19 03/05/2022 03/05/2022 03/15/2022 7:18 PM EDT documented as of this encounter Care Teams Honey Grader And Blender Relationship Specialty Start Date End Date Caitlyn Bowie MD 3400 [facility] 1 [place] [address] PCP - General Internal Medicine 05/06/21 Henry Kelly MD Pulmonary Department 175 [facility], [address] [place] [address] Physician Pulmonary Disease 09/06/17 06/22/20 documented as of this encounter
--- OUTSIDE RECORDS SUMMARY | 2024-09-05 10:56 | XMS_ITS | Encounter Summary ---
Author Organization [facility] and [facility] Address [address] [place] [address] Care Team Providers Care Custom Stock Maker Name Role Phone Caitlyn Bowie MD Primary Care Provider +1- [phone] Encounter Details Date Type Department Care Team (Late st Contact Info) Description 07/26/2018 Scanned Document [facility] Health Information Management [address] [place] [address] External, Provider Social History Tobacco Use Types [...] Description 09/30/2024 8:00 PM EDT Procedure visit [facility] [address] [place] [address] [address] [place] [address] 10/31/2024 1:00 PM EDT Telemedicine Cancer Center at [facility] 240 [facility] Building [address] [place], [place] [phone] Ronald Mills MD 240 [facility] A1 [place] [address] documented as [...] documented as of this encounter Care Teams Custom Stock Maker Relationship Specialty Start Date End Date Caitlyn Bowie MD 3400 [facility] 1 [place] [address] PCP - General Internal Medicine 05/06/21 Henry Kelly MD Pulmonary Department 175 [facility], [address] [place] [address] Physician Pulmonary Disease 09/06/17 06/22/20 documented as of this encounter
--- OUTSIDE RECORDS SUMMARY | 2024-09-05 10:56 | XMS_ITS | Encounter Summary ---
Author Organization [facility] and [facility] Address [address] [place] [address] Care Team Providers Care Taxonomy Teacher Name Role Phone Caitlyn Bowie MD Primary Care Provider +1- [phone] Encounter Details Date Type Department Care Team (Late st Contact Info) Description 03/11/2015 Scanned Document [facility] Health Information Management [address] [place] [address] External, Provider Social History Tobacco Use Types [...] Description 09/30/2024 8:00 PM EDT Procedure visit [facility] [address] [place] [address] [address] [place] [address] 10/31/2024 1:00 PM EDT [facility]icine [facility] [address] [facility] Building [address] [place], [place] [address] Ronald Mills MD 240 [facility] A1 [place] [address] documented as of this encounter Procedures Procedure Name Priority Date/Time Associated Diagnosis Comments LAB SCAN Routine 03/11/2015 documented in this encounter Results * Lab Scan (03/11/2015) Blood specimen (specimen) us Provider External LAB BLOOD ORDERABLES Edited Re sult - Final [facility] [place], [place], [facility] documented in this encounter Visit Diagnoses Not on filedocumented in this encounter Additional Health Concerns Infection Onset Date Last Indicated Resolved Time COVID-19 03/05/2022 03/05/2022 03/15/2022 7:18 PM EDT documented as of this encounter Care Teams Taxonomy Teacher Relationship Specialty Start Date End Date Caitlyn Bowie MD 3400 [facility] 1 [place] [address] PCP - General Internal Medicine 05/06/21 Henry Kelly MD Pulmonary Department 175 [facility], [address] [place] [address] Physician Pulmonary Disease 09/06/17 06/22/20 documented as of this encounter
--- OUTSIDE RECORDS SUMMARY | 2024-09-05 10:56 | XMS_ITS | Encounter Summary ---
Author Organization [facility] and [facility] Address [address] [place] [address] Care Team Providers Care Buttermaker Helper Name Role Phone Caitlyn Bowie MD Primary Care Provider +1- [phone] Reason for Visit * Reason Comments Triage Encounter Details Date Type Department Care Team (Late st Contact Info) Description 10/18/2021 Telephone [facility] at [address] - [address] [phone] Ronald Mills MD [address] [place] [phone] Triage Social History Tobacco Use Types [...] Description 09/30/2024 8:00 PM EDT Procedure visit [facility] [address] [place] [address] [address] [place] [address] 10/31/2024 1:00 PM EDT Telemedicine [facility] at [facility] 240 [facility] [address] [place], [place] [address] Ronald Mills MD 240 [facility] A1 [place] [address] documented as of this encounter Visit Diagnoses Not on filedocumented in this encounter Additional Health Concerns Infection Onset Date Last Indicated Resolved Time COVID-19 03/05/2022 03/05/2022 03/15/2022 7:18 PM EDT Assessment Noted Time PHQ-9 Depression Total Score: 2 11/07/19 19 2:06 PM EDT documented as of this encounter Care Teams Buttermaker Helper Relationship Specialty Start Date End Date Caitlyn Bowie MD [address] [address] PCP - General Internal Medicine 05/06/21 documented as of this encounter
--- OUTSIDE RECORDS SUMMARY | 2024-09-05 10:56 | XMS_ITS | Encounter Summary ---
Author Organization [facility] and [facility] Address [address] [place] [address] Care Team Providers Care Senior Analyst Developer Name Role Phone Caitlyn Bowie MD Primary Care Provider +1- [phone] Encounter Details Date Type Department Care Team (Late st Contact Info) Description 12/28/2021 Scanned Document INTERFACE DEFAULT [address] [place] [address] System, Provider Not In Social History Tobacco [...] Description 09/30/2024 8:00 PM EDT Procedure visit [facility] [address] [place] [address] [address] [place] [address] 10/31/2024 1:00 PM EDT [facility]medicine [facility] at [facility] 240 [facility] [address] [place] [address] Ronald Mills MD 240 [facility] A1 [place] [address] documented as of this encounter Visit Diagnoses Not on filedocumented in this encounter Additional Health Concerns Infection Onset Date Last Indicated Resolved Time COVID-19 03/05/2022 03/05/2022 03/15/2022 7:18 PM EDT Assessment Noted Time PHQ-9 Depression Total Score: 2 11/07/19 19 2:06 PM EDT documented as of this encounter Care Teams Senior Analyst Developer Relationship Specialty Start Date End Date Caitlyn Bowie MD [address] [address] PCP - General Internal Medicine 05/06/21 documented as of this encounter
--- OUTSIDE RECORDS SUMMARY | 2024-09-05 10:56 | XMS_ITS | Encounter Summary ---
Author Organization [facility] Address [address] [place] [address] Care Team Providers Care Roll Contour Grinder Name Role Phone Caitlyn Bowie MD Primary Care Provider +1- [phone] Encounter Details Date Type Department Care Team (Late st Contact Info) Description 06/08/2021 Scanned Document INTERFACE DEFAULT [address] [place] [address] System, Provider Not In Social History Tobacco [...] Description 09/30/2024 8:00 PM EDT Procedure visit [facility] [address] [place] [address] [address] [place] [address] 10/31/2024 1:00 PM EDT Telemedicine [facility] at [facility] 240 [facility] [address] [place] [address] Ronald Mills MD 240 [facility] A1 [place] [address] documented as of this encounter Procedures Procedure [...] as of this encounter Care Teams Roll Contour Grinder Relationship Specialty Start Date End Date Caitlyn Bowie MD [address] [address] PCP - General Internal Medicine 05/06/21 documented as of this encounter
--- OUTSIDE RECORDS SUMMARY | 2024-09-05 10:56 | XMS_ITS | Clinical Summary ---
Author Organization [facility] Address [address] [place] [address] Care Team Providers Care Metal Moulder'S Assistant Name Role Phone Caitlyn Bowie MD Primary Care Provider +1- [phone] Allergies Active Allergy Reactions Criticality Noted Date [...] Breath High 05/09/2008 Bronchospasm or Wheezing Ipratropium [place] Unknown/Patient and Family Unable to Define Medium [...] 1 capsule by mouth daily. Active B Gnolmyc-G-Cczjd Acid (STRESS 500 B-COMPLEX PO) Take 1 [...] age to complete this topic Care Teams Metal Moulder'S Assistant Relationship Specialty Start Date End Date Caitlyn Bowie MD [facility] [place] [address] PCP - General Internal Medicine 03/20/23
--- OUTSIDE RECORDS SUMMARY | 2024-09-05 10:56 | XMS_ITS | Encounter Summary ---
Author Organization [facility] and [facility] Address [address] [place] [address] Care Team Providers Care Guncotton Packer Name Role Phone Caitlyn Bowie MD Primary Care Provider +1- [phone] Encounter Details Date Type Department Care Team (Late st Contact Info) Description 04/18/2018 Scanned Document [facility] Health Information Management [address] [place] [address] External, Provider Social History Tobacco Use Types [...] Description 09/30/2024 8:00 PM EDT Procedure visit [facility] [address] [place] [address] [address] [place] [address] 10/31/2024 1:00 PM EDT [facility] 240 [facility] Building [address] [place], [place] [phone] Ronald Mills MD 240 [facility] A1 [place] [address] documented as of this encounter [...] documented as of this encounter Care Teams Guncotton Packer Relationship Specialty Start Date End Date Caitlyn Bowie MD 3400 [facility] 1 [place] [address] PCP - General Internal Medicine 05/06/21 Henry Kelyl MD Pulmonary Department 175 [facility], [address] [place] [address] Physician Pulmonary Disease 09/06/17 06/22/20 documented as of this encounter
--- OUTSIDE RECORDS SUMMARY | 2024-09-05 10:56 | XMS_ITS | Encounter Summary ---
Author Organization [facility] Address [address] [place] [address] Care Team Providers Care Electroneurodiagnostic Technician Name Role Phone Sharon Vides Primary Care Provider Brennan Castro MD Primary Care Provider Unavailab Hayden Montes MD Unavailable [phone] Pallavi Flood NP Unavailable +1- [phone] Caitlyn Bowie MD Primary Care Provider Johnathon shaver Encounter Details Date Type Department Care Team Description 02/05/2019 [facility] Medical Records [address] [place] [address] Landen Aaron DO Social History Tobacco Use [...] on filedocumented in this encounter Care Teams Electroneurodiagnostic Technician Relationship Specialty Start Date End Date Sharon Vides PCP - General Internal Medicine 08/02/18 05/26/20 Brennan Burnett MD PCP - General Internal Medicine 05/27/20 12/07/21 Caitlyn Bowie MD [address] [place] [address] PCP - General Internal Medicine 12/08/21 Hayden Shah MD [address] [place], [place] [phone] Specialist Cardiovascular Disease 09/01/20 Pallavi Flood NP [address] [place], [place] [address] Cardiology 09/01/20 documented as of this encounter
--- OUTSIDE RECORDS SUMMARY | 2024-09-05 10:56 | XMS_ITS | Encounter Summary ---
Author Organization [facility] Address [address] [place] [address] Care Team Providers Care Forest Science Professor Name Role Phone Caitlyn Bowie MD Primary Care Provider +1- [phone] Encounter Details Date Type Department Care Team (Late st Contact Info) Description 01/26/2018 Scanned Document [facility] Health Information Management [address] [place] [address] External, Provider Social History Tobacco Use Types [...] 09/30/2024 8:00 PM EDT Procedure visit [facility] [address] [place] [address] [address] [place] [address] 10/31/2024 1:00 PM EDT Telemedicine [facility] at [facility] 240 [facility] Building [address] [place], [place] [phone] Ronald Mills MD 240 [facility] A1 [place] [address] documented as of this encounter [...] documented as of this encounter Care Teams Forest Science Professor Relationship Specialty Start Date End Date Caitlyn Bowie MD 3400 [facility] 1 [place] [address] PCP - General Internal Medicine 05/06/21 Henry Kelly MD Pulmonary Department 175 [facility], [address] [place] [address] Physician Pulmonary Disease 09/06/17 06/22/20 documented as of this encounter
--- OUTSIDE RECORDS SUMMARY | 2024-09-05 10:56 | XMS_ITS | Encounter Summary ---
Author Organization [facility] and [facility] Address [address] [place] [address] Care Team Providers Care Technical Inspector Name Role Phone Caitlyn Bowie MD Primary Care Provider +1- [phone] Encounter Details Date Type Department Care Team (Late st Contact Info) Description 01/26/2018 Scanned Document [facility] Health Information Management [address] [place] [address] External, Provider Social History Tobacco Use Types [...] Description 09/30/2024 8:00 PM EDT Procedure visit [facility] [address] [place] [address] [address] [place] [address] 10/31/2024 1:00 PM EDT Telemedicine [facility] at [facility] 240 [facility] Building [address] [place], [place] [phone] Ronald Mills MD 240 [facility] A1 [place] [address] documented as of this encounter [...] as of this encounter Care Teams Technical Inspector Relationship Specialty Start Date End Date Caitlyn Bowie MD 3400 [facility] 1 [place] [address] PCP - General Internal Medicine 05/06/21 Henry Kelly MD Pulmonary Department 175 [facility], [address] [place] [address] Physician Pulmonary Disease 09/06/17 06/22/20 documented as of this encounter
--- OUTSIDE RECORDS SUMMARY | 2024-09-05 10:56 | XMS_ITS | Encounter Summary ---
Author Organization [facility] and [facility] Address [address] [place] [address] Care Team Providers Care Inspector Material Disposition Name Role Phone Caitlyn Bowie MD Primary Care Provider +1- [phone] Encounter Details Date Type Department Care Team (Late Contact Info) Description 10/29/2021 Scanned Document [facility] Health Information Management [address] [place] [address] External, Provider Social History Tobacco Use Types [...] Description 09/30/2024 8:00 PM EDT Procedure visit [facility] [address] [place] [address] [address] [place] [address] 10/31/2024 1:00 PM EDT Telemedicine Cancer Center at [address] [place] [address] Ronald Mills MD 240 [facility] A1 [place] [address] documented as of this encounter [...] as of this encounter Care Teams Inspector Material Disposition Relationship Specialty Start Date End Date Caitlyn Bowie MD [address] [address] PCP - General Internal Medicine 05/06/21 documented as of this encounter
--- OUTSIDE RECORDS SUMMARY | 2024-09-05 10:56 | XMS_ITS | Encounter Summary ---
Author Organization [facility] Address [address] [place] [address] Care Team Providers Care Senior Product Manager Name Role Phone Caitlyn Bowie MD Primary Care Provider +1- [phone] Encounter Details Date Type Department Care Team (Late st Contact Info) Description 06/07/2021 Scanned Document [facility] at [address] [address] External, Provider Social History Tobacco Use Types [...] Description 09/30/2024 8:00 PM EDT Procedure visit [facility] [address] [place] [address] [place] [address] 10/31/2024 1:00 PM EDT Telemedicine Cancer Center at [address] [place], [place] [address] Ronald Mills MD [address] [address] documented as of this encounter Visit Diagnoses Not on filedocumented in this encounter Additional Health Concerns Infection Onset Date Last Indicated Resolved Time COVID-19 03/05/2022 03/05/2022 03/15/2022 7:18 PM EDT Assessment Noted Time PHQ-9 Depression Total Score: 2 11/07/19 19 2:06 PM EDT documented as of this encounter Care Teams Senior Product Manager Relationship Specialty Start Date End Date Caitlyn Bowie MD [address] [address] PCP - General Internal Medicine 05/06/21 documented as of this encounter
--- OUTSIDE RECORDS SUMMARY | 2024-09-05 10:56 | XMS_ITS | Encounter Summary ---
Author Organization [facility] Address [address] [place] [address] Care Team Providers Care Tenant Selector Name Role Phone Sharon Vides Primary Care Provider Brennan Castro MD Primary Care Provider Unavailab Hayden Montes MD Unavailable [phone] Pallavi Flood NP Unavailable [phone]- [phone] Caitlyn Bowie MD Primary Care Provider Johnathon shaver Encounter Details Date Type Department Care Team Description 03/13/2019 Release of Information Medical Records [address] [place] [address] Abstract, Provider Social History Tobacco Use Types [...] on filedocumented in this encounter Care Teams Tenant Selector Relationship Specialty Start Date End Date Sharon Vides PCP - General Internal Medicine 08/02/18 05/26/20 Brennan Burnett MD PCP - General Internal Medicine 05/27/20 12/07/21 Caitlyn Bowie MD [address] [place] [address] PCP - General Internal Medicine 12/08/21 Hayden Shah MD [address] [place] [address] Specialist Cardiovascular Disease 09/01/20 Pallavi Flood NP [address] [place] [address] Cardiology 09/01/20 documented as of this encounter
--- OUTSIDE RECORDS SUMMARY | 2024-09-05 10:56 | XMS_ITS | Encounter Summary ---
Author Organization [facility] and [facility] Address [address] [place] [address] Care Team Providers Care Real Estate Attorney Name Role Phone Caitlyn Bowie MD Primary Care Provider +1- [phone] Encounter Details Date Type Department Care Team (Late st Contact Info) Description 11/19/2021 Scanned Document Cardiovascular Medicine at [address] [place] [address] Norma Renee MD [address] [place] [phone] Social History Tobacco Use Types Packs/Day Years [...] Description 09/30/2024 8:00 PM EDT Procedure visit [facility] [address] [place] [address] [address] [place] [address] 10/31/2024 1:00 PM EDT Telemedicine Cancer Center at [address] [place], [place] [address] Ronald Mills MD 240 [facility] Max A1 [place] [address] documented as of this encounter Visit Diagnoses Not on filedocumented in this encounter Additional Health Concerns Infection Onset Date Last Indicated Resolved Time COVID-19 03/05/2022 03/05/2022 03/15/2022 7:18 PM EDT Assessment Noted Time PHQ-9 Depression Total Score: 2 11/07/19 19 2:06 PM EDT documented as of this encounter Care Teams Real Estate Attorney Relationship Specialty Start Date End Date Caitlyn Bowie MD [address] [address] PCP - General Internal Medicine 05/06/21 documented as of this encounter
--- OUTSIDE RECORDS SUMMARY | 2024-09-05 10:56 | XMS_ITS | Encounter Summary ---
Author Organization [facility] Address [address] [place] [address] Care Team Providers Care Assessment Counselor Name Role Phone Caitlyn Bowie MD Primary Care Provider +1- [phone] Encounter Details Date Type Department Care Team (Late st Contact Info) Description 02/19/2015 Scanned Document [facility] Health Information Management [address] [place] [phone] External, Provider Social History Tobacco Use Types [...] Description 09/30/2024 8:00 PM EDT Procedure visit [facility] [address] [place] [address] [address] [place] [address] 10/31/2024 1:00 PM EDT Telemedicine [facility] at [facility] 240 [facility] Building [address] [place], [place] [address] Ronald Mills MD 240 [facility] A1 [place] [address] documented as of this encounter Procedures Procedure Name Priority Date/Time Associated Diagnosis Comments LAB SCAN Routine 02/19/2015 documented in this encounter Results * Lab Scan (02/19/2015) Blood specimen (specimen) us Provider External LAB BLOOD ORDERABLES Final Res ult Performing Organization Address City/State/[facility] Co de Phone Number [facility] documented in this encounter Visit Diagnoses Not on filedocumented in this encounter Additional Health Concerns Infection Onset Date Last Indicated Resolved Time COVID-19 03/05/2022 03/05/2022 03/15/2022 7:1 8 PM EDT documented as of this encounter Care Teams Assessment Counselor Relationship Specialty Start Date End Date Caitlyn Bowie MD [address] [facility] Max 1 [place] [address] PCP - General Internal Medicine 05/06/21 Henry Kelly MD Pulmonary Department 175 [facility], [address] [place] [address] Physician Pulmonary Disease 09/06/17 06/22/20 documented as of this encounter
--- OUTSIDE RECORDS SUMMARY | 2024-09-05 10:56 | XMS_ITS | Encounter Summary ---
Author Organization [facility] and [facility] Address [address] [place] [address] Care Team Providers Care Weaving Teacher Name Role Phone Caitlyn Bowie MD Primary Care Provider +1- [phone] Encounter Details Date Type Department Care Team (Late st Contact Info) Description 07/28/2018 Scanned Document [facility] Health Information Management [address] [place] [phone] External, Provider Social History Tobacco Use Types [...] EDT Procedure visit [facility] [address] [place] [address] [address] [place] [address] 10/31/2024 1:00 PM EDT [facility]icine [facility] 240 [facility] Building [address] [place], [place] [address] Ronald Mills MD 240 [facility] A1 [place] [address] documented as of this encounter [...] documented as of this encounter Care Teams Weaving Teacher Relationship Specialty Start Date End Date Caitlyn Bowie MD 3400 [facility] 1 [place] [address] PCP - General Internal Medicine 05/06/21 Henry Kelly MD Pulmonary Department 175 [facility], [address] [place] [address] Physician Pulmonary Disease 09/06/17 06/22/20 documented as of this encounter
--- OUTSIDE RECORDS SUMMARY | 2024-09-05 10:56 | XMS_ITS | Encounter Summary ---
Author Organization [facility] and [facility] Address [address] [place] [address] Care Team Providers Care Clean In Places Operator Name Role Phone Caitlyn Bowie MD Primary Care Provider +1- [phone] Encounter Details Date Type Department Care Team (Late st Contact Info) Description 04/16/2018 Scanned Document [facility] Health Information Management [address] [place] [address] External, Provider Social History Tobacco Use Types [...] Description 09/30/2024 8:00 PM EDT Procedure visit [facility] [address] [place] [address] [address] [place] [address] 10/31/2024 1:00 PM EDT Telemedicine [facility] at [facility] 240 [facility] Building [address] [place], [place] [phone] Ronald Mills MD 240 [facility] A1 [place] [address] documented as of this encounter Visit Diagnoses Not on filedocumented in this encounter Additional Health Concerns Infection Onset Date Last Indicated Resolved Time COVID-19 03/05/2022 03/05/2022 03/15/2022 7:18 PM EDT documented as of this encounter Care Teams Clean In Places Operator Relationship Specialty Start Date End Date Caitlyn Bowie MD 3400 [facility] 1 [place] [address] PCP - General Internal Medicine 05/06/21 Henry Kelly MD Pulmonary Department 175 [facility], [address] [place] [address] Physician Pulmonary Disease 09/06/17 06/22/20 documented as of this encounter
--- OUTSIDE RECORDS SUMMARY | 2024-09-05 10:57 | XMS_ITS | Encounter Summary ---
Author Organization [facility] and [facility] Address [address] [place] [address] Care Team Providers Care Biscuit Maker Name Role Phone Caitlyn Bowie MD Primary Care Provider +1- [phone] Encounter Details Date Type Department Care Team (Late st Contact Info) Description 04/24/2021 Scanned Document INTERFACE DEFAULT [address] [place] [address] System, Provider Not In Social History Tobacco [...] Description 09/30/2024 8:00 PM EDT Procedure visit [facility] [address] [place] [address] [address] [place] [address] 10/31/2024 1:00 PM EDT Telemedicine Cancer [facility] at [facility] [address] [facility] [address] [place] [address] Ronald Mills MD 240 [facility] [address]1 [place] [address] documented as of this encounter Procedures Procedure [...] documented as of this encounter Care Teams Biscuit Maker Relationship Specialty Start Date End Date Caitlyn Bowie MD [address] [address] PCP - General Internal Medicine 05/06/21 documented as of this encounter
--- OUTSIDE RECORDS SUMMARY | 2024-09-05 10:57 | XMS_ITS | Encounter Summary ---
Author Organization [facility] and [facility] Address [address] [place] [address] Care Team Providers Care Director Inpatient Headache Program Name Role Phone Caitlyn Bowie MD Primary Care Provider +1- [phone] Encounter Details Date Type Department Care Team (Late st Contact Info) Description 06/24/2022 Scanned Document INTERFACE DEFAULT [address] [place] [address] System, Provider Not In Social History Tobacco [...] 09/30/2024 8:00 PM EDT Procedure visit [facility] [address] [place] [address] [address] [place] [address] 10/31/2024 1:00 PM EDT Telemedicine [facility] at [facility] 240 [facility] [address] [place] [address] Ronald Mills MD 240 [facility] A1 [place] [address] documented as of this encounter Procedures Procedure [...] as of this encounter Care Teams Director Inpatient Headache Program Relationship Specialty Start Date End Date Caitlyn Bowie MD [address] [address] PCP - General Internal Medicine 05/06/21 documented as of this encounter
--- OUTSIDE RECORDS SUMMARY | 2024-09-05 10:57 | XMS_ITS | Encounter Summary ---
Author Organization [facility] and [facility] Address [address] [place] [address] Care Team Providers Care Equipment Mechanic Name Role Phone Caitlyn Bowie MD Primary Care Provider +1- [phone] Encounter Details Date Type Department Care Team (Late st Contact Info) Description 09/07/2021 Scanned Document INTERFACE DEFAULT [address] [place] [address] System, Provider Not In Social History Tobacco [...] Description 09/30/2024 8:00 PM EDT Procedure visit [facility] [address] [place] [address] [address] [place] [address] 10/31/2024 1:00 PM EDT Telemedicine Cancer Center at [facility] 240 [facility] [address] [place] [address] Ronald Mills MD 240 [facility] [address]1 [place] [address] documented as of this encounter Procedures Procedure [...] as of this encounter Care Teams Equipment Mechanic Relationship Specialty Start Date End Date Caitlyn Bowie MD [facility] [address] [address] PCP - General Internal Medicine 05/06/21 documented as of this encounter
--- OUTSIDE RECORDS SUMMARY | 2024-09-05 10:57 | XMS_ITS | Encounter Summary ---
Author Organization [facility] and [facility] Address [address] [place] [address] Care Team Providers Care Pharmacist Critical Care Name Role Phone Caitlyn Bowie MD Primary Care Provider +1- [phone] Encounter Details Date Type Department Care Team (Late st Contact Info) Description 04/28/2021 Scanned Document INTERFACE DEFAULT [address] [place] [address] System, Provider Not In Social History Tobacco [...] EDT Procedure visit [facility] [address] [place] [address] [address] [place] [address] 10/31/2024 1:00 PM EDT Telemedicine [facility] at [facility] [address] [facility] [address] [place] [address] Ronald Mills MD 240 [facility] [address]1 [place] [address] documented as of this encounter Procedures Procedure [...] documented as of this encounter Care Teams Pharmacist Critical Care Relationship Specialty Start Date End Date Caitlyn Bowie MD [facility] [address] [address] PCP - General Internal Medicine 05/06/21 documented as of this encounter
--- OUTSIDE RECORDS SUMMARY | 2024-09-05 10:57 | XMS_ITS | Encounter Summary ---
Author Organization [facility] and [facility] Address [address] [place] [address] Care Team Providers Care Marketing Analytics Analyst Name Role Phone Caitlyn Bowie MD Primary Care Provider +1- [phone] Encounter Details Date Type Department Care Team (Late st Contact Info) Description 09/09/2021 Scanned Document INTERFACE DEFAULT [address] [place] [address] System, Provider Not In Social History Tobacco [...] Description 09/30/2024 8:00 PM EDT Procedure visit [facility] [address] [place] [address] [address] [place] [address] 10/31/2024 1:00 PM EDT Telemedicine Cancer Center at [facility] 240 [facility] [address] [place] [address] Ronald Mills MD 240 [facility] [address]1 [place] [address] documented as of this encounter Visit Diagnoses Not on filedocumented in this encounter Additional Health Concerns Infection Onset Date Last Indicated Resolved Time COVID-19 03/05/2022 03/05/2022 03/15/2022 7:18 PM EDT Assessment Noted Time PHQ-9 Depression Total Score: 2 11/07/19 19 2:06 PM EDT documented as of this encounter Care Teams Marketing Analytics Analyst Relationship Specialty Start Date End Date Caitlyn Bowie MD [address] [address] PCP - General Internal Medicine 05/06/21 documented as of this encounter
--- OUTSIDE RECORDS SUMMARY | 2024-09-05 10:57 | XMS_ITS | Encounter Summary ---
Author Organization [facility] and [facility] Address [address] [place] [address] Care Team Providers Care Document Control Coordinator Name Role Phone Caitlyn Bowie MD Primary Care Provider +1- [phone] Encounter Details Date Type Department Care Team (Late st Contact Info) Description 05/27/2021 Telephone [facility] [address] [address] Ronald Mills MD [address] [place] [phone] Social History Tobacco Use Types Packs/Day [...] 09/30/2024 8:00 PM EDT Procedure visit [facility] [address] [place] [address] [address] [place] [address] 10/31/2024 1:00 PM EDT Telemedicine Cancer Center at [facility] 240 [facility] [address] [place], [place] [address] Ronald Mills MD 240 [facility] [address]1 [place] [address] documented as of this encounter Visit Diagnoses Not on filedocumented in this encounter Additional Health Concerns Infection Onset Date Last Indicated Resolved Time COVID-19 03/05/2022 03/05/2022 03/15/2022 7:18 PM EDT Assessment Noted Time PHQ-9 Depression Total Score: 2 11/07/19 19 2:06 PM EDT documented as of this encounter Care Teams Document Control Coordinator Relationship Specialty Start Date End Date Caitlyn Bowie MD [address] [address] PCP - General Internal Medicine 05/06/21 documented as of this encounter
--- OUTSIDE RECORDS SUMMARY | 2024-09-05 10:57 | XMS_ITS | Encounter Summary ---
Author Organization [facility] and [facility] Address [address] [place] [address] Care Team Providers Care Sand Tester Name Role Phone Caitlyn Bowie MD Primary Care Provider +1- [phone] Reason for Visit * Reason Comments Advice Only mass Encounter Details Date Type Department Care Team (Late st Contact Info) Description 09/06/2021 Telephone [facility] at [address] [address] Ronald Mills MD [address] [place] [phone] Advice Only (mass) Social History Tobacco [...] EDT Procedure visit [facility] [address] [place] [address] [address] [place] [address] 10/31/2024 1:00 PM EDT Telemedicine Cancer Center at [address] [place], [place] [address] Ronald Mills MD 240 [facility] A1 [place] [address] documented as of this encounter Visit Diagnoses Not on filedocumented in this encounter Additional Health Concerns Infection Onset Date Last Indicated Resolved Time COVID-19 03/05/2022 03/05/2022 03/15/2022 7:18 PM EDT Assessment Noted Time PHQ-9 Depression Total Score: 2 11/07/19 19 2:06 PM EDT documented as of this encounter Care Teams Sand Tester Relationship Specialty Start Date End Date Caitlyn Bowie MD [address] [address] PCP - General Internal Medicine 05/06/21 documented as of this encounter
--- OUTSIDE RECORDS SUMMARY | 2024-09-05 10:57 | XMS_ITS | Encounter Summary ---
Author Organization [facility] and [facility] Address [address] [place] [address] Care Team Providers Care Vp Software Support Name Role Phone Caitlyn Bowie MD Primary Care Provider +1- [phone] Encounter Details Date Type Department Care Team (Late st Contact Info) Description 07/08/2022 Scanned Document Cardiovascular Medicine at [address] [address] Norma Renee MD [address] [place] [phone] Social History Tobacco Use Types Packs/Day Years [...] Description 09/30/2024 8:00 PM EDT Procedure visit [facility] [address] [place] [address] [address] [place] [address] 10/31/2024 1:00 PM EDT Telemedicine Cancer Center at [address] [place] [address] Ronald Mills MD 240 [facility] [address]1 [place] [address] documented as of this encounter Visit Diagnoses Not on filedocumented in this encounter Additional Health Concerns Assessment Noted Time PHQ-9 Depression Total Score: 2 11/07/19 19 2:06 PM EDT documented as of this encounter Care Teams Vp Software Support Relationship Specialty Start Date End Date Caitlyn Bowie MD 3400 [facility] 1 [place] [address] PCP - General Internal Medicine 05/06/21 documented as of this encounter
--- OUTSIDE RECORDS SUMMARY | 2024-09-05 10:57 | XMS_ITS | Encounter Summary ---
Author Organization [facility] and [facility] Address [address] [place] [address] Care Team Providers Care Process Cheese Cooker Name Role Phone Caitlyn Bowie MD Primary Care Provider +1- [phone] Encounter Details Date Type Department Care Team (Late st Contact Info) Description 09/02/2021 Scanned Document INTERFACE DEFAULT [address] [place] [address] System, Provider Not In Social History Tobacco [...] Description 09/30/2024 8:00 PM EDT Procedure visit [facility] [address] [place] [address] [address] [place] [address] 10/31/2024 1:00 PM EDT [facility]medicine [facility] 240 [facility] [address] [place] [address] Ronald Mills MD 240 [facility] A1 [place] [address] documented as of this encounter Procedures Procedure [...] as of this encounter Care Teams Process Cheese Cooker Relationship Specialty Start Date End Date Caitlyn Bowie MD [facility] [address] [address] PCP - General Internal Medicine 05/06/21 documented as of this encounter
--- OUTSIDE RECORDS SUMMARY | 2024-09-05 10:57 | XMS_ITS | Encounter Summary ---
Author Organization [facility] and [facility] Address [address] [place] [address] Care Team Providers Care Cloth Napping Supervisor Name Role Phone Caitlyn Bowie MD Primary Care Provider +1- [phone] Encounter Details Date Type Department Care Team (Late st Contact Info) Description 10/24/2022 Scanned Document INTERFACE DEFAULT [address] [place] [address] System, Provider Not In Social History Tobacco [...] Description 09/30/2024 8:00 PM EDT Procedure visit [facility] [address] [place] [address] [address] [place] [address] 10/31/2024 1:00 PM EDT Telemedicine Cancer Center at [facility] 240 [facility] [address] [place] [address] Ronald Mills MD 240 [facility] [address]1 [place] [address] documented as of this encounter Procedures Procedure [...] documented as of this encounter Care Teams Cloth Napping Supervisor Relationship Specialty Start Date End Date Caitlyn Bowie MD [address] [address] PCP - General Internal Medicine 05/06/21 documented as of this encounter
--- OUTSIDE RECORDS SUMMARY | 2024-09-05 10:57 | XMS_ITS | Encounter Summary ---
Author Organization [facility] and [facility] Address [address] [place] [address] Care Team Providers Care Cafeteria Cook Name Role Phone Caitlyn Bowie MD Primary Care Provider +1- [phone] Encounter Details Date Type Department Care Team (Late st Contact Info) Description 07/06/2021 Scanned Document INTERFACE DEFAULT [address] [place] [address] System, Provider Not In Social History Tobacco [...] 09/30/2024 8:00 PM EDT Procedure visit [facility] [address] [place] [address] [address] [place] [address] 10/31/2024 1:00 PM EDT Telemedicine Cancer [facility] at [facility] 240 [facility] [address] [place] [address] Ronald Mills MD 240 [facility] [address]1 [place] [address] documented as of this encounter Visit Diagnoses Not on filedocumented in this encounter Additional Health Concerns Infection Onset Date Last Indicated Resolved Time COVID-19 03/05/2022 03/05/2022 03/15/2022 7:18 PM EDT Assessment Noted Time PHQ-9 Depression Total Score: 2 11/07/19 19 2:06 PM EDT documented as of this encounter Care Teams Cafeteria Cook Relationship Specialty Start Date End Date Caitlyn Bowie MD [address] [address] PCP - General Internal Medicine 05/06/21 documented as of this encounter
--- OUTSIDE RECORDS SUMMARY | 2024-09-05 10:57 | XMS_ITS | Encounter Summary ---
Author Organization [facility] and [facility] Address [address] [place] [address] Care Team Providers Care Small Engine Technician Name Role Phone Caitlyn Bowie MD Primary Care Provider +1- [phone] Encounter Details Date Type Department Care Team (Late st Contact Info) Description 06/20/2022 Scanned Document INTERFACE DEFAULT [address] [place] [address] System, Provider Not In Social History Tobacco [...] Description 09/30/2024 8:00 PM EDT Procedure visit [facility] [address] [place] [address] [address] [place] [address] 10/31/2024 1:00 PM EDT Telemedicine Cancer Center at [facility] 240 [facility] [address] [place] [address] Ronald Mills MD 240 [facility] A1 [place] [address] documented as of this encounter Procedures Procedure [...] documented as of this encounter Care Teams Small Engine Technician Relationship Specialty Start Date End Date Caitlyn Bowie MD [facility] [address] [address] PCP - General Internal Medicine 05/06/21 documented as of this encounter
--- OUTSIDE RECORDS SUMMARY | 2024-09-05 10:57 | XMS_ITS | Encounter Summary ---
Author Organization [facility] and [facility] Address [address] [place] [address] Care Team Providers Care Impact Hammer Operator Name Role Phone Caitlyn Bowie MD Primary Care Provider +1- [phone] Encounter Details Date Type Department Care Team (Late st Contact Info) Description 04/29/2021 Scanned Document INTERFACE DEFAULT [address] [place] [id number] System, Provider Not In Social History Tobacco [...] 09/30/2024 8:00 PM EDT Procedure visit [facility] [address] [place] [address] [address] [place] [address] 10/31/2024 1:00 PM EDT [facility] 240 [facility] [address] [place] [address] Ronald Mills MD 240 [facility] [address]1 [place] [address] documented as of this encounter Procedures Procedure [...] documented as of this encounter Care Teams Impact Hammer Operator Relationship Specialty Start Date End Date Caitlyn Bowie MD [address] [address] PCP - General Internal Medicine 05/06/21 documented as of this encounter
--- OUTSIDE RECORDS SUMMARY | 2024-09-05 10:57 | XMS_ITS | Encounter Summary ---
Author Organization [facility] and [facility] Address [address] [place] [address] Care Team Providers Care Turfgrass Management Professor Name Role Phone Caitlyn Bowie MD Primary Care Provider +1- [phone] Encounter Details Date Type Department Care Team (Late st Contact Info) Description 06/23/2022 Scanned Document INTERFACE DEFAULT [address] [place] [address] System, Provider Not In Social History Tobacco [...] Description 09/30/2024 8:00 PM EDT Procedure visit [facility] [address] [place] [address] [address] [place] [address] 10/31/2024 1:00 PM EDT Telemedicine Cancer Center at [facility] 240 [facility] [address] [place] [address] Ronald Mills MD 240 [facility] [address] [place] [address] documented as of this encounter Visit Diagnoses Not on filedocumented in this encounter Additional Health Concerns Assessment Noted Time PHQ-9 Depression Total Score: 2 11/07/19 19 2:06 PM EDT documented as of this encounter Care Teams Turfgrass Management Professor Relationship Specialty Start Date End Date Caitlyn Bowie MD [address] [address] PCP - General Internal Medicine 05/06/21 documented as of this encounter
--- OUTSIDE RECORDS SUMMARY | 2024-09-05 10:57 | XMS_ITS | Encounter Summary ---
Author Organization [facility] and [facility] Address [address] [place] [address] Care Team Providers Care Certified Social Workers In Health Care Name Role Phone Caitlyn Bowie MD Primary Care Provider +1- [phone] Encounter Details Date Type Department Care Team (Late st Contact Info) Description 06/27/2022 Scanned Document INTERFACE DEFAULT [address] [place] [address] System, Provider Not In Social History Tobacco [...] Description 09/30/2024 8:00 PM EDT Procedure visit [facility] [address] [place] [address] [address] [place] [address] 10/31/2024 1:00 PM EDT Telemedicine Cancer [facility] at [facility] 240 [facility] [address] [place] [address] Ronald Mills MD 240 [facility] [address]1 [place] [address] documented as of this encounter Procedures Procedure [...] as of this encounter Care Teams Certified Social Workers In Health Care Relationship Specialty Start Date End Date Caitlyn Bowie MD [facility] [address] [address] PCP - General Internal Medicine 05/06/21 documented as of this encounter
--- OUTSIDE RECORDS SUMMARY | 2024-09-05 10:57 | XMS_ITS | Encounter Summary ---
Author Organization [facility] and [facility] Address [address] [place] [address] Care Team Providers Care Oil Rig Roughneck Name Role Phone Caitlyn Bowie MD Primary Care Provider +1- [phone] Encounter Details Date Type Department Care Team (Late st Contact Info) Description 08/23/2022 Abstract Cardiovascular Medicine at [address] [place] [address] Norma Renee MD [address] [place] [phone] Social History Tobacco Use Types Packs/Day Years [...] EDT Procedure visit [facility] [address] [place] [address] [address] [place] [address] 10/31/2024 1:00 PM EDT Telemedicine Cancer Center at [address] [facility] [place] [address] Ronald Mills MD [address] [place] [address] documented as of this encounter Visit Diagnoses Not on filedocumented in this encounter Additional Health Concerns Assessment Noted Time PHQ-9 Depression Total Score: 2 11/07/19 19 2:06 PM EDT documented as of this encounter Care Teams Oil Rig Roughneck Relationship Specialty Start Date End Date Caitlyn Bowie MD 3400 [facility] 1 [place] [address] PCP - General Internal Medicine 05/06/21 documented as of this encounter
--- OUTSIDE RECORDS SUMMARY | 2024-09-05 10:57 | XMS_ITS | Encounter Summary ---
Author Organization [facility] and [facility] Address 20 [place] [address] Care Team Providers Care Card Mounter Name Role Phone Caitlyn Bowie MD Primary Care Provider +1- [phone] Encounter Details Date Type Department Care Team (Late Contact Info) Description 01/31/2023 Abstract [facility] 35 [facility] [place] [address] Shilpi Romero, RN Social History Tobacco Use [...] Description 09/30/2024 8:00 PM EDT Procedure visit [facility] [address] [place] [address] [address] [place] [address] 10/31/2024 1:00 PM EDT Telemedicine Cancer Center at [address] [place] [address] Ronald Mills MD [address] [place] [address] [address] [place] [address] documented as of this encounter Visit Diagnoses Not on filedocumented in this encounter Additional Health Concerns Assessment Noted Time PHQ-9 Depression Total Score: 2 11/07/19 19 2:06 PM EDT documented as of this encounter Care Teams Card Mounter Relationship Specialty Start Date End Date Caitlyn Bowie MD [address] [address] PCP - General Internal Medicine 05/06/21 documented as of this encounter
--- OUTSIDE RECORDS SUMMARY | 2024-09-05 10:57 | XMS_ITS | Encounter Summary ---
Author Organization [facility] and [facility] Address [address] [place] [address] Care Team Providers Care Steel Manager Name Role Phone Caitlyn Bowie MD Primary Care Provider +1- [phone] Encounter Details Date Type Department Care Team (Late st Contact Info) Description 09/23/2021 Scanned Document INTERFACE DEFAULT [address] [place] [address] System, Provider Not In Social History Tobacco [...] Description 09/30/2024 8:00 PM EDT Procedure visit [facility] [address] [place] [address] [address] [place] [address] 10/31/2024 1:00 PM EDT Telemedicine [facility] at [facility] 240 [facility] [address] [place] [address] Ronald Mills MD 240 [facility] [address]1 [place] [address] documented as of this encounter Procedures Procedure [...] as of this encounter Care Teams Steel Manager Relationship Specialty Start Date End Date Caitlyn Bowie MD [address] [address] PCP - General Internal Medicine 05/06/21 documented as of this encounter
--- OUTSIDE RECORDS SUMMARY | 2024-09-05 10:57 | XMS_ITS | Encounter Summary ---
Author Organization [facility] Address [address] [place] [address] Care Team Providers Care Ultrasound Tester Name Role Phone Caitlyn Bowie MD Primary Care Provider +1- [phone] Encounter Details Date Type Department Care Team (Late st Contact Info) Description 07/22/2021 Scanned Document INTERFACE DEFAULT [address] [place] [address] System, Provider Not In Social History Tobacco [...] Description 09/30/2024 8:00 PM EDT Procedure visit [facility] [address] [place] [address] [address] [place] [address] 10/31/2024 1:00 PM EDT Telemedicine [facility] [address] [facility] [address] [place] [address] Ronald Mills MD 240 [facility] [address]1 [place] [address] documented as of this encounter Procedures Procedure [...] documented as of this encounter Care Teams Ultrasound Tester Relationship Specialty Start Date End Date Caitlyn Bowie MD [address] [address] PCP - General Internal Medicine 05/06/21 documented as of this encounter
--- OUTSIDE RECORDS SUMMARY | 2024-09-05 10:57 | XMS_ITS ---
Author Organization [facility] Address [address] [facility] [address] [place] [address] Care Team Providers Care Conveyor Technician Name Role Phone EVELIN RAMSAY Primary Care Provider Yenny Hou Unavailable [phone] Allergies Allergen (clinical drug ingredient) Drug/Non Drug [...] bedtime, 1/2 tab prn during the day [facility] 06/10/2014 Active Advair HFA 230-21MCG/ACT 2 Inhalation tw ice daily for -3 06/10/2014 Active EpiPen Active Meclizine HCl 25 MG 1 tablet as needed Orally [facility] 06/10/2014 Active Rosuvastatin Calcium 05/03/2024 Active predniSONE 2.5 MG Oral for 30 Active Singulair 10 MG 1 tablet Orally Once a day Active Metoprolol Succinate ER 50 MG 1 tablet Orally Once a day Active Synthroid 25MCG 1 ORAL daily for -3 [facility] 06/10/2014 Active Albuterol Sulfate (2.5 MG/3ML)0.083% Inhalation [...] Encounter Location Date Provider Diagnosis Total [address] [place] [address] 07/09/2024 Yenny Lovettva Urgency of urination R39.15 [...] Notes * TONIE WATSONOB:1945 (79 yo F)Acc No.[id number]:07/09/2024 PROGRESS NOTES Patient:?SHIRLEY CINDA Appointment Provider:?Yenny doan M.D. :1945???Age:79 Y???Sex:Female D ate:07/09/2024 Address:[address] [place] [address], [facility] Pcp:EVELIN RAMSAY Subjective: * Chief Complaints: * [...] ODORED DISCHARGE.?no?skin complaints.? * Medical History:? * Fiscal Specialist History:?/ Para?2/2.?Sexual activity?not currently sexually active.?Last Pap [...] mm Hg, Temp: 98.0 F. * Examination: ???ACCESS REGISTRAR exam: ?EXTERNAL GENITALIA:?Normal female. No lesions, erythema [...] Elizalde M.D. Date:?07/09/2024 Generated for Arely paige/Sebastian/Zacheryitting on:?09/05/2024 10:57 AM EST History and Physical Notes * HPI [...] Category Sub-Category Detail Notes Category Not es ACCESS REGISTRAR exam CERVIX: surgically absent VAGINA: atrophic changes, er ythematous with yellow white discharge, pH>4.5, +whiff test EXTERNAL GENITALIA: Normal female. No le sions, erythema or discharge UTERUS: absent ADNEXA: surgically absent
--- OUTSIDE RECORDS SUMMARY | 2024-09-05 10:57 | XMS_ITS | Encounter Summary ---
Author Organization [facility] Address [address] [place] [address] Care Team Providers Care Patient Relations Manager Name Role Phone Caitlyn Bowie MD Primary Care Provider +1- [phone] Encounter Details Date Type Department Care Team (Late st Contact Info) Description 04/27/2021 Scanned Document INTERFACE DEFAULT [address] [place] [address] System, Provider Not In Social History Tobacco [...] Description 09/30/2024 8:00 PM EDT Procedure visit [facility] [address] [place] [address] [address] [place] [address] 10/31/2024 1:00 PM EDT Telemedicine Cancer [facility] at [facility] [address] [facility] [address] [place] [address] Ronald Mills MD 240 [facility] [address] [place] [address] documented as of this encounter Procedures Procedure [...] as of this encounter Care Teams Patient Relations Manager Relationship Specialty Start Date End Date Caitlyn Bowie MD [address] [address] PCP - General Internal Medicine 05/06/21 documented as of this encounter
--- OUTSIDE RECORDS SUMMARY | 2024-09-05 10:57 | XMS_ITS | Encounter Summary ---
Author Organization [facility] and [facility] Address [address] [place] [address] Care Team Providers Care Ink Grinder Name Role Phone Caitlyn Bowie MD Primary Care Provider +1- [phone] Encounter Details Date Type Department Care Team (Late st Contact Info) Description 07/28/2022 Scanned Document Onco-Oncology Program at [address] [address] Norma Renee MD [address] [place] [address] 2 [place] [phone] Social History Tobacco Use Types Packs/Day Years [...] 09/30/2024 8:00 PM EDT Procedure visit [facility] [address] [place] [address] 10/31/2024 1:00 PM EDT Telemedicine Cancer Center at [address] [place] [address] Ronald Mills MD [address] [place] [address] documented as of this encounter Visit Diagnoses Not on filedocumented in this encounter Additional Health Concerns Assessment Noted Time PHQ-9 Depression Total Score: 2 11/07/19 19 2:06 PM EDT documented as of this encounter Care Teams Ink Grinder Relationship Specialty Start Date End Date Caitlyn Bowie MD [address] [address] PCP - General Internal Medicine 05/06/21 documented as of this encounter
--- OUTSIDE RECORDS SUMMARY | 2024-09-05 10:57 | XMS_ITS | Encounter Summary ---
Author Organization [facility] and [facility] Address [address] [place] [address] Care Team Providers Care Prison Keeper Name Role Phone Caitlyn Bowie MD Primary Care Provider +1- [phone] Encounter Details Date Type Department Care Team (Late st Contact Info) Description 05/17/2021 Scanned Document Cancer Center at [address] [address] External, Provider Social History Tobacco Use Types [...] Description 09/30/2024 8:00 PM EDT Procedure visit [facility] [address] [place] [address] [place] [address] 10/31/2024 1:00 PM EDT Telemedicine Cancer Center at [address] [place], [place] [address] Ronald Mills MD [address] [address] documented as of this encounter [...] documented as of this encounter Care Teams Prison Keeper Relationship Specialty Start Date End Date Caitlyn Bowie MD [address] [address] PCP - General Internal Medicine 05/06/21 documented as of this encounter
--- OUTSIDE RECORDS SUMMARY | 2024-09-05 10:57 | XMS_ITS | Encounter Summary ---
Author Organization [facility] Address [address] [place] [address] Care Team Providers Care Bean Weigher Name Role Phone Pcp, No Primary Care Provider Brennan Mario MD Primary Care Provider [phone] Caitlyn Bowie MD Primary Care Provider +1- [phone] Encounter Details Date Type Department Care Team (Late st Contact Info) Description 01/04/2022 Scanned Document [facility] Neurology Ophthalmology [address] [address] Yary Whitten DO [address] [place] [address] Social History Tobacco Use Types Packs/Day [...] filedocumented in this encounter Care Teams Bean Weigher Relationship Specialty Start Date End Date Pcp, No PCP - General General Medicine 10/04/21 07/18/22 Brennan Burnett MD [address] [place] [address] PCP - General 07/19/22 03/19/23 Caitlyn Bowie MD [address] [place] [address] PCP - General Internal Medicine 03/20/23 documented as of this encounter
--- OUTSIDE RECORDS SUMMARY | 2024-09-05 10:57 | XMS_ITS | Encounter Summary ---
Author Organization [facility] Address [address] [place] [address] Care Team Providers Care Hand Touch Up Painter Name Role Phone Caitlyn Bowie MD Primary Care Provider +1- [phone] Encounter Details Date Type Department Care Team (Late st Contact Info) Description 05/05/2021 Scanned Document INTERFACE DEFAULT [address] [place] [address] System, Provider Not In Social History Tobacco [...] Description 09/30/2024 8:00 PM EDT Procedure visit [facility] [address] [place] [address] [address] [place] [address] 10/31/2024 1:00 PM EDT Telemedicine [facility] at [facility] 240 [facility] [address] [place] [address] Ronald Mills MD 240 [facility] [address] [place] [address] documented as of this encounter Visit Diagnoses Not on filedocumented in this encounter Additional Health Concerns Infection Onset Date Last Indicated Resolved Time COVID-19 03/05/2022 03/05/2022 03/15/2022 7:18 PM EDT Assessment Noted Time PHQ-9 Depression Total Score: 2 11/07/19 19 2:06 PM EDT documented as of this encounter Care Teams Hand Touch Up Painter Relationship Specialty Start Date End Date Caitlyn Bowie MD [address] [address] PCP - General Internal Medicine 05/06/21 documented as of this encounter
--- OUTSIDE RECORDS SUMMARY | 2024-09-05 10:57 | XMS_ITS | Encounter Summary ---
Author Organization [facility] Address [address] [place] [address] Care Team Providers Care Doper Name Role Phone Caitlyn Bowie MD Primary Care Provider +1- [phone] Reason for Visit * Reason Comments FYI Encounter Details Date Type Department Care Team (Late st Contact Info) Description 05/24/2021 Telephone [facility] at [facility] at [address] [place] [address] 2nd [place], [place] [phone] Solo Henry MD [address] [place] [phone] FYI Social History Tobacco Use Types [...] Description 09/30/2024 8:00 PM EDT Procedure visit [facility] [address] [place] [address] [address] [place] [address] 10/31/2024 1:00 PM EDT Telemedicine Cancer Center at [facility] [address] [facility] [address] [place] [address] Ronald Mills MD 240 [facility] [address] [place] [address] documented as of this encounter Visit Diagnoses Not on filedocumented in this encounter Additional Health Concerns Infection Onset Date Last Indicated Resolved Time COVID-19 03/05/2022 03/05/2022 03/15/2022 7:18 PM EDT Assessment Noted Time PHQ-9 Depression Total Score: 2 11/07/19 19 2:06 PM EDT documented as of this encounter Care Teams Doper Relationship Specialty Start Date End Date Caitlyn Bowie MD 3400 [facility] 1 [place] [address] PCP - General Internal Medicine 05/06/21 documented as of this encounter
--- OUTSIDE RECORDS SUMMARY | 2024-09-05 10:57 | XMS_ITS | Encounter Summary ---
Author Organization [facility] Address [address] [place] [address] Care Team Providers Care Advertising Director Name Role Phone Caitlyn Bowie MD Primary Care Provider +1- [phone] Encounter Details Date Type Department Care Team (Late st Contact Info) Description 09/24/2021 Scanned Document INTERFACE DEFAULT [address] [place] [address] System, Provider Not In Social History Tobacco [...] Description 09/30/2024 8:00 PM EDT Procedure visit [facility] [address] [place] [address] [address] [place] [address] 10/31/2024 1:00 PM EDT Telemedicine Cancer Center at [facility] 240 [facility] [address] [place] [address] Ronald Mills MD 240 [facility] A1 [place] [address] documented as of this encounter Procedures Procedure [...] documented as of this encounter Care Teams Advertising Director Relationship Specialty Start Date End Date Caitlyn Bowie MD [address] [address] PCP - General Internal Medicine 05/06/21 documented as of this encounter
--- OUTSIDE RECORDS SUMMARY | 2024-09-05 10:57 | XMS_ITS | Encounter Summary ---
Author Organization [facility] Address [address] [place] [address] Care Team Providers Care Multimedia Authoring Specialist Name Role Phone Caitlyn Bowie MD Primary Care Provider +1- [phone] Encounter Details Date Type Department Care Team (Late st Contact Info) Description 04/25/2021 Scanned Document INTERFACE DEFAULT [address] [place] [address] System, Provider Not In Social History Tobacco [...] Description 09/30/2024 8:00 PM EDT Procedure visit [facility] [address] [place] [address] [address] [place] [address] 10/31/2024 1:00 PM EDT Telemedicine Cancer Center at [facility] 240 [facility] [address] [place] [address] Ronald Mills MD 240 [facility] [address] [place] [address] documented as of this encounter Procedures Procedure [...] as of this encounter Care Teams Multimedia Authoring Specialist Relationship Specialty Start Date End Date Catilyn Bowie MD [facility] [address] [address] PCP - General Internal Medicine 05/06/21 documented as of this encounter
--- OUTSIDE RECORDS SUMMARY | 2024-09-05 10:57 | XMS_ITS | Encounter Summary ---
Author Organization [facility] Address [address] [place] [address] Care Team Providers Care Downstairs Maid Name Role Phone Caitlyn Bowie MD Primary Care Provider +1- [phone] Encounter Details Date Type Department Care Team (Late st Contact Info) Description 12/23/2022 Scanned Document INTERFACE DEFAULT [address] [place] [address] System, Provider Not In Social History Tobacco [...] Description 09/30/2024 8:00 PM EDT Procedure visit [facility] [address] [place] [address] [address] [place] [address] 10/31/2024 1:00 PM EDT Telemedicine Cancer Center at [facility] 240 [facility] [address] [place] [address] Ronald Mills MD 240 [facility] [address] [place] [address] documented as of this encounter Visit Diagnoses Not on filedocumented in this encounter Additional Health Concerns Assessment Noted Time PHQ-9 Depression Total Score: 2 11/07/19 19 2:06 PM EDT documented as of this encounter Care Teams Downstairs Maid Relationship Specialty Start Date End Date Caitlyn Bowie MD [address] [address] PCP - General Internal Medicine 05/06/21 documented as of this encounter
--- OUTSIDE RECORDS SUMMARY | 2024-09-05 10:57 | XMS_ITS | Encounter Summary ---
Author Organization [facility] and [facility] Address [address] [place] [address] Care Team Providers Care Production Support Consultant Name Role Phone Caitlyn Bowie MD Primary Care Provider +1- [phone] Encounter Details Date Type Department Care Team (Late st Contact Info) Description 06/21/2022 Scanned Document INTERFACE DEFAULT [address] [place] [address] System, Provider Not In Social History Tobacco [...] 09/30/2024 8:00 PM EDT Procedure visit [facility] [address] [place] [address] [address] [place] [address] 10/31/2024 1:00 PM EDT Telemedicine Cancer Center at [facility] 240 [facility] [address] [place] [address] Ronald Mills MD 240 [facility] [address]1 [place] [address] documented as of this encounter Procedures Procedure [...] as of this encounter Care Teams Production Support Consultant Relationship Specialty Start Date End Date Caitlyn Bowie MD [address] [address] PCP - General Internal Medicine 05/06/21 documented as of this encounter"
--- OUTSIDE RECORDS SUMMARY | 2024-09-05 10:57 | XMS_ITS | Encounter Summary ---
Author Organization [facility] Address [address] [place] [address] Care Team Providers Care Test Department Helper Name Role Phone Caitlyn Bowie MD Primary Care Provider +1- [phone] Encounter Details Date Type Department Care Team (Late st Contact Info) Description 07/07/2021 Scanned Document INTERFACE DEFAULT [address] [place] [address] System, Provider Not In Social History Tobacco [...] 09/30/2024 8:00 PM EDT Procedure visit [facility] [address] [place] [address] [address] [place] [address] 10/31/2024 1:00 PM EDT Telemedicine Cancer Center at [facility] 240 [facility] [address] [place] [address] Ronald Mills MD 240 [facility] [address]1 [place] [address] documented as of this encounter Visit Diagnoses Not on filedocumented in this encounter Additional Health Concerns Infection Onset Date Last Indicated Resolved Time COVID-19 03/05/2022 03/05/2022 03/15/2022 7:18 PM EDT Assessment Noted Time PHQ-9 Depression Total Score: 2 11/07/19 19 2:06 PM EDT documented as of this encounter Care Teams Test Department Helper Relationship Specialty Start Date End Date Caitlyn Bowie MD [address] [address] PCP - General Internal Medicine 05/06/21 documented as of this encounter
--- OUTSIDE RECORDS SUMMARY | 2024-09-05 10:57 | XMS_ITS | Encounter Summary ---
Author Organization [facility] and [facility] Address [address] [place] [address] Care Team Providers Care Munitions Handler Supervisor Name Role Phone Caitlyn Bowie MD Primary Care Provider +1- [phone] Encounter Details Date Type Department Care Team (Late st Contact Info) Description 04/26/2021 Scanned Document INTERFACE DEFAULT [address] [place] [address] System, Provider Not In Social History Tobacco [...] Description 09/30/2024 8:00 PM EDT Procedure visit [facility] [address] [place] [address] [address] [place] [address] 10/31/2024 1:00 PM EDT Telemedicine Cancer Center at [facility] 240 [facility] [address] [place] [address] Ronald Mills MD 240 [facility] [address] [place] [address] documented as of this encounter Procedures Procedure [...] documented as of this encounter Care Teams Munitions Handler Supervisor Relationship Specialty Start Date End Date Caitlyn Bowie MD [facility] [address] [address] PCP - General Internal Medicine 05/06/21 documented as of this encounter
--- OUTSIDE RECORDS SUMMARY | 2024-09-05 10:57 | XMS_ITS | Encounter Summary ---
Author Organization [facility] Address [address] [place] [address] Care Team Providers Care Cattle Producers Name Role Phone Caitlyn Bowie MD Primary Care Provider +1- [phone] Encounter Details Date Type Department Care Team (Late st Contact Info) Description 06/28/2022 Scanned Document INTERFACE DEFAULT [address] [place] [address] System, Provider Not In Social History Tobacco [...] Description 09/30/2024 8:00 PM EDT Procedure visit [facility] [address] [place] [address] [address] [place] [address] 10/31/2024 1:00 PM EDT Telemedicine [facility] at [facility] 240 [facility] [address] [place] [address] Ronald Mills MD 240 [facility] A1 [place] [address] documented as of this encounter Procedures Procedure [...] as of this encounter Care Teams Cattle Producers Relationship Specialty Start Date End Date Caitlyn Bowie MD [address] [address] PCP - General Internal Medicine 05/06/21 documented as of this encounter
--- OUTSIDE RECORDS SUMMARY | 2024-09-05 10:57 | XMS_ITS | Encounter Summary ---
Author Organization [facility] Address [address] [place] [address] Care Team Providers Care Water Quality Control Engineer Name Role Phone Caitlyn Bowie MD Primary Care Provider +1- [phone] Encounter Details Date Type Department Care Team (Late st Contact Info) Description 09/10/2021 Scanned Document Cardiovascular Medicine at [address] [address] Norma Renee MD [address] [place] [phone] Social History Tobacco Use Types Packs/Day Years [...] Description 09/30/2024 8:00 PM EDT Procedure visit [facility] [address] [place] [address] [address] [place] [address] 10/31/2024 1:00 PM EDT Telemedicine Cancer Center at [address] [place], [place] [address] Ronald Mills MD 240 [facility] [address] [place] [address] documented as of this encounter Visit Diagnoses Not on filedocumented in this encounter Additional Health Concerns Infection Onset Date Last Indicated Resolved Time COVID-19 03/05/2022 03/05/2022 03/15/2022 7:18 PM EDT Assessment Noted Time PHQ-9 Depression Total Score: 2 11/07/19 19 2:06 PM EDT documented as of this encounter Care Teams Water Quality Control Engineer Relationship Specialty Start Date End Date Caitlyn Bowie MD [address] [address] PCP - General Internal Medicine 05/06/21 documented as of this encounter
--- OUTSIDE RECORDS SUMMARY | 2024-09-05 10:58 | XMS_ITS | Encounter Summary ---
Author Organization [facility] Address [address] [place] [address] Care Team Providers Care Final Assembly Inspector Name Role Phone Caitlyn Bowie MD Primary Care Provider +1- [phone] Encounter Details Date Type Department Care Team (Late st Contact Info) Description 04/12/2022 Scanned Document INTERFACE DEFAULT [address] [place] [address] System, Provider Not In Social History Tobacco [...] 09/30/2024 8:00 PM EDT Procedure visit [facility] [address] [place] [address] [address] [place] [address] 10/31/2024 1:00 PM EDT Telemedicine Cancer [facility] at [facility] 240 [facility] [address] [place] [address] Ronald Mills MD 240 [facility] [address] [place] [address] documented as of this encounter Procedures Procedure [...] documented as of this encounter Care Teams Final Assembly Inspector Relationship Specialty Start Date End Date Caitlyn Bowie MD [address] [address] PCP - General Internal Medicine 05/06/21 documented as of this encounter
--- OUTSIDE RECORDS SUMMARY | 2024-09-05 10:58 | XMS_ITS | Encounter Summary ---
Author Organization [facility] and [facility] Address [address] [place] [address] Care Team Providers Care Glass Processing Worker Name Role Phone Caitlyn Bowie MD Primary Care Provider +1- [phone] Encounter Details Date Type Department Care Team (Late Contact Info) Description 03/02/2022 Scanned Document [facility] Health Information Management [address] [place] [address] External, Provider Social History Tobacco Use Types [...] Description 09/30/2024 8:00 PM EDT Procedure visit [facility] [address] [place] [address] [address] [place] [address] 10/31/2024 1:00 PM EDT Tele[facility] at [address] [place] [address] Ronald Mills MD 240 [facility] A1 [place] [address] documented as of this encounter Visit Diagnoses Not on filedocumented in this encounter Additional Health Concerns Infection Onset Date Last Indicated Resolved Time COVID-19 03/05/2022 03/05/2022 03/15/2022 7:18 PM EDT Assessment Noted Time PHQ-9 Depression Total Score: 2 11/07/19 19 2:06 PM EDT documented as of this encounter Care Teams Glass Processing Worker Relationship Specialty Start Date End Date Caitlyn Bowie MD [address] [address] PCP - General Internal Medicine 05/06/21 documented as of this encounter
--- OUTSIDE RECORDS SUMMARY | 2024-09-05 10:58 | XMS_ITS | Encounter Summary ---
Author Organization [facility] and [facility] Address [address] [place] [address] Care Team Providers Care Reinsurance Claims Analyst Name Role Phone Caitlyn Bowie MD Primary Care Provider +1- [phone] Encounter Details Date Type Department Care Team (Late st Contact Info) Description 12/06/2018 Scanned Document [facility] Health Information Management [address] [place] [address] External, Provider Social History Tobacco Use Types [...] Description 09/30/2024 8:00 PM EDT Procedure visit [facility] [address] [place] [address] [address] [place] [address] 10/31/2024 1:00 PM EDT Telemedicine [facility] at [facility] 240 [facility] [address] [place], [place] [address] Ronald Mills MD 240 [facility] A1 [place] [address] documented as of this encounter [...] documented as of this encounter Care Teams Reinsurance Claims Analyst Relationship Specialty Start Date End Date Caitlyn Bowie MD 3400 [facility] 1 [place] [address] PCP - General Internal Medicine 05/06/21 Henry Kelly MD Pulmonary Department [address] [place] [address], [address] [place] [address] Physician Pulmonary Disease 09/06/17 06/22/20 documented as of this encounter
--- OUTSIDE RECORDS SUMMARY | 2024-09-05 10:58 | XMS_ITS | Encounter Summary ---
Author Organization [facility] and [facility] Address [address] [place] [address] Care Team Providers Care Ammonia Technician Name Role Phone Caitlyn Bowie MD Primary Care Provider +1- [phone] Encounter Details Date Type Department Care Team (Late st Contact Info) Description 04/14/2022 Scanned Document INTERFACE DEFAULT [address] [place] [address] System, Provider Not In Social History Tobacco [...] EDT Procedure visit [facility] [address] [place] [address] [address] [place] [address] 10/31/2024 1:00 PM EDT [facility] 240 [facility] [address] [place] [address] Ronald Mills MD 240 [facility] A1 [place] [address] documented as of this encounter Visit Diagnoses Not on filedocumented in this encounter Additional Health Concerns Assessment Noted Time PHQ-9 Depression Total Score: 2 11/07/19 19 2:06 PM EDT documented as of this encounter Care Teams Ammonia Technician Relationship Specialty Start Date End Date Caitlyn Bowie MD [address] [address] PCP - General Internal Medicine 05/06/21 documented as of this encounter
--- OUTSIDE RECORDS SUMMARY | 2024-09-05 10:58 | XMS_ITS | Encounter Summary ---
Author Organization [facility] and [facility] Address [address] [place] [address] Care Team Providers Care Multiple Tube Winding Machine Operator Name Role Phone Caitlyn Bowie MD Primary Care Provider +1- [phone] Encounter Details Date Type Department Care Team (Late st Contact Info) Description 06/08/2022 Scanned Document INTERFACE DEFAULT [address] [place] [address] System, Provider Not In Social History Tobacco [...] Description 09/30/2024 8:00 PM EDT Procedure visit [facility] [address] [place] [address] [address] [place] [address] 10/31/2024 1:00 PM EDT Tele[facility]icine [facility] at [facility] 240 [facility] [address] [place] [address] Ronald Mills MD 240 [facility] A1 [place] [address] documented as of this encounter Procedures Procedure [...] documented as of this encounter Care Teams Multiple Tube Winding Machine Operator Relationship Specialty Start Date End Date Caitlyn Bowie MD [address] [address] PCP - General Internal Medicine 05/06/21 documented as of this encounter
--- OUTSIDE RECORDS SUMMARY | 2024-09-05 10:58 | XMS_ITS | Encounter Summary ---
Author Organization [facility] and [facility] Address [address] [place] [address] Care Team Providers Care Planning Management It Specialist Name Role Phone Caitlyn Bowie MD Primary Care Provider +1- [phone] Encounter Details Date Type Department Care Team (Late st Contact Info) Description 04/19/2022 Scanned Document INTERFACE DEFAULT [address] [place] [address] System, Provider Not In Social History Tobacco [...] Description 09/30/2024 8:00 PM EDT Procedure visit [facility] [address] [place] [address] [address] [place] [address] 10/31/2024 1:00 PM EDT [facility]medicine [facility] 240 [facility] [address] [place] [address] Ronald Mills MD 240 [facility] A1 [place] [address] documented as of this encounter Procedures Procedure [...] documented as of this encounter Care Teams Planning Management It Specialist Relationship Specialty Start Date End Date Caitlyn Bowie MD [address] [address] PCP - General Internal Medicine 05/06/21 documented as of this encounter
--- OUTSIDE RECORDS SUMMARY | 2024-09-05 10:58 | XMS_ITS | Encounter Summary ---
Author Organization [facility] and [facility] Address [address] [place] [address] Care Team Providers Care Transmitter Chief Name Role Phone Caitlyn Bowie MD Primary Care Provider +1- [phone] Encounter Details Date Type Department Care Team (Late st Contact Info) Description 09/28/2015 Scanned Document [facility] Health Information Management [address] [place] [address] External, Provider Social History Tobacco Use Types [...] Description 09/30/2024 8:00 PM EDT Procedure visit [facility] [address] [place] [address] [address] [place] [address] 10/31/2024 1:00 PM EDT Telemedicine [facility] 240 [facility] Building [address] [place], [place] [address] Ronald Mills MD 240 [facility] A1 [place] [address] documented as of this encounter Procedures Procedure Name Priority Date/Time Associated Diagnosis Comments LAB SCAN Routine 09/09/2015 documented in this encounter Results * Lab Scan (09/09/2015) Blood specimen (specimen) us Provider External LAB BLOOD ORDERABLES Final Res ult Performing Organization Address City/State/RUST Co de Phone Number [facility] documented in this encounter Visit Diagnoses Not on filedocumented in this encounter Additional Health Concerns Infection Onset Date Last Indicated Resolved Time COVID-19 03/05/2022 03/05/2022 03/15/2022 7:18 PM EDT documented as of this encounter Care Teams Transmitter Chief Relationship Specialty Start Date End Date Caitlyn Bowie MD 3400 [facility] Max 1 [place] [address] PCP - General Internal Medicine 05/06/21 Henry Kelly MD Pulmonary Department 175 [facility], [address] [place] [address] Physician Pulmonary Disease 09/06/17 06/22/20 documented as of this encounter
--- OUTSIDE RECORDS SUMMARY | 2024-09-05 10:58 | XMS_ITS | Encounter Summary ---
Author Organization [facility] Address [address] [place] [address] Care Team Providers Care Right Of Way Man Name Role Phone Caitlyn Bowie MD Primary Care Provider +1- [phone] Encounter Details Date Type Department Care Team (Late st Contact Info) Description 04/16/2022 Scanned Document INTERFACE DEFAULT [address] [place] [address] System, Provider Not In Social History Tobacco [...] Description 09/30/2024 8:00 PM EDT Procedure visit [facility] [address] [place] [address] [address] [place] [address] 10/31/2024 1:00 PM EDT Telemedicine [facility] 240 [facility] [address] [place] [address] Ronald Mills MD 240 [facility] A1 [place] [address] documented as of this encounter Procedures Procedure [...] documented as of this encounter Care Teams Right Of Way Man Relationship Specialty Start Date End Date Caitlyn Bowie MD [address] [address] PCP - General Internal Medicine 05/06/21 documented as of this encounter
--- OUTSIDE RECORDS SUMMARY | 2024-09-05 10:58 | XMS_ITS | Encounter Summary ---
Author Organization [facility] and [facility] Address [address] [place] [address] Care Team Providers Care Timber Feller Name Role Phone Caitlyn Bowie MD Primary Care Provider +1- [phone] Encounter Details Date Type Department Care Team (Late st Contact Info) Description 05/16/2023 Scanned Document INTERFACE DEFAULT [address] [place] [address] System, Provider Not In Social History Tobacco [...] Description 09/30/2024 8:00 PM EDT Procedure visit [facility] [address] [place] [address] [address] [place] [address] 10/31/2024 1:00 PM EDT [facility] 240 [facility] [address] [place] [address] Ronald Mills MD 240 [facility] A1 [place] [address] documented as of this encounter Procedures Procedure [...] documented as of this encounter Care Teams Timber Feller Relationship Specialty Start Date End Date Caitlyn Bowie MD [address] [address] PCP - General Internal Medicine 05/06/21 documented as of this encounter
--- OUTSIDE RECORDS SUMMARY | 2024-09-05 10:58 | XMS_ITS | Encounter Summary ---
Author Organization [facility] and [facility] Address [address] [place] [address] Care Team Providers Care Publications Distribution Clerk Name Role Phone Caitlyn Bowie MD Primary Care Provider +1- [phone] Encounter Details Date Type Department Care Team (Late st Contact Info) Description 12/04/2018 Scanned Document [facility] Health Information Management [address] [place] [address] External, Provider Social History Tobacco Use Types [...] Description 09/30/2024 8:00 PM EDT Procedure visit [facility] [address] [place] [address] [address] [place] [address] 10/31/2024 1:00 PM EDT [facility] 240 [facility] Building [address] [place], [place] [address] Ronald Mills MD 240 [facility] A1 [place] [address] documented as of this encounter Visit Diagnoses Not on filedocumented in this encounter Additional Health Concerns Infection Onset Date Last Indicated Resolved Time COVID-19 03/05/2022 03/05/2022 03/15/2022 7:18 PM EDT Assessment Noted Time PHQ-9 Depression Total Score: 2 11/07/19 19 2:06 PM EDT documented as of this encounter Care Teams Publications Distribution Clerk Relationship Specialty Start Date End Date Caitlyn Bowie MD 3400 [facility] 1 [place] [address] PCP - General Internal Medicine 05/06/21 Henry Kelly MD Pulmonary Department 175 [facility], [address] [place] [address] Physician Pulmonary Disease 09/06/17 06/22/20 documented as of this encounter
--- OUTSIDE RECORDS SUMMARY | 2024-09-05 10:58 | XMS_ITS | Encounter Summary ---
Author Organization [facility] and [facility] Address [address] [place] [address] Care Team Providers Care Hot Water Heater Installer Name Role Phone Caitlyn Bowie MD Primary Care Provider +1- [phone] Encounter Details Date Type Department Care Team (Late st Contact Info) Description 04/13/2022 Scanned Document INTERFACE DEFAULT [address] [place] [address] System, Provider Not In Social History Tobacco [...] Description 09/30/2024 8:00 PM EDT Procedure visit [facility] [address] [place] [address] [address] [place] [address] 10/31/2024 1:00 PM EDT Telemedicine [facility] 240 [facility] [address] [place] [address] Ronald Mills MD 240 [facility] A1 [place] [address] documented as of this encounter Procedures Procedure [...] as of this encounter Care Teams Hot Water Heater Installer Relationship Specialty Start Date End Date Caitlyn Bowie MD [facility] [address] [address] PCP - General Internal Medicine 05/06/21 documented as of this encounter
--- OUTSIDE RECORDS SUMMARY | 2024-09-05 10:58 | XMS_ITS | Encounter Summary ---
Author Organization [facility] Address [address] [place] [address] Care Team Providers Care Barrel Handler Name Role Phone Caitlyn Bowie MD Primary Care Provider +1- [phone] Encounter Details Date Type Department Care Team (Late st Contact Info) Description 08/28/2015 Scanned Document [facility] Health Information Management [address] [place] [address] External, Provider Social History Tobacco Use Types [...] Description 09/30/2024 8:00 PM EDT Procedure visit [facility] [address] [place] [address] [address] [place] [address] 10/31/2024 1:00 PM EDT Telemedicine [facility] at [facility] 240 [facility] Building [address] [place], [place] [address] Ronald Mills MD 240 [facility] A1 [place] [address] documented as of this encounter Visit Diagnoses Not on filedocumented in this encounter Additional Health Concerns Infection Onset Date Last Indicated Resolved Time COVID-19 03/05/2022 03/05/2022 03/15/2022 7:18 PM EDT documented as of this encounter Care Teams Barrel Handler Relationship Specialty Start Date End Date Caitlyn Bowie MD 3400 [facility] [address] 1 [place] [address] PCP - General Internal Medicine 05/06/21 Henry Kelly MD Pulmonary Department 175 [facility], [address] [place] [address] Physician Pulmonary Disease 09/06/17 06/22/20 documented as of this encounter
--- OUTSIDE RECORDS SUMMARY | 2024-09-05 10:58 | XMS_ITS | Encounter Summary ---
Author Organization [facility] and [facility] Address [address] [place] [address] Care Team Providers Care Crane Follower Name Role Phone Caitlyn Bowie MD Primary Care Provider +1- [phone] Encounter Details Date Type Department Care Team (Late st Contact Info) Description 04/20/2023 Scanned Document INTERFACE DEFAULT [address] [place] [address] System, Provider Not In Social History Tobacco [...] Description 09/30/2024 8:00 PM EDT Procedure visit [facility] [address] [place] [address] [address] [place] [address] 10/31/2024 1:00 PM EDT Telemedicine [facility] 240 [facility] [address] [place] [address] Ronald Mills MD 240 [facility] [address]1 [place] [address] documented as of this encounter Procedures Procedure [...] documented as of this encounter Care Teams Crane Follower Relationship Specialty Start Date End Date Caitlyn Bowie MD [address] [address] PCP - General Internal Medicine 05/06/21 documented as of this encounter
--- OUTSIDE RECORDS SUMMARY | 2024-09-05 10:58 | XMS_ITS | Encounter Summary ---
Author Organization [facility] Address [address] [place] [address] Care Team Providers Care Assembler Dc Field Ring Name Role Phone Caitlyn Bowie MD Primary Care Provider +1- [phone] Encounter Details Date Type Department Care Team (Late st Contact Info) Description 05/02/2022 Scanned Document INTERFACE DEFAULT [address] [place] [address] System, Provider Not In Social History Tobacco [...] Description 09/30/2024 8:00 PM EDT Procedure visit [facility] [address] [place] [address] [address] [place] [address] 10/31/2024 1:00 PM EDT Telemedicine [facility] at [facility] 240 [facility] [address] [place] [address] Ronald Mills MD 240 [facility] A1 [place] [address] documented as of this encounter Procedures Procedure [...] as of this encounter Care Teams Assembler Dc Field Ring Relationship Specialty Start Date End Date Caitlyn Bowie MD [facility] [address] [address] PCP - General Internal Medicine 05/06/21 documented as of this encounter
--- OUTSIDE RECORDS SUMMARY | 2024-09-05 10:58 | XMS_ITS | Encounter Summary ---
Author Organization [facility] and [facility] Address 20 [place] [address] Care Team Providers Care Overedge Machine Operator Name Role Phone Caitlyn Bowie MD Primary Care Provider +1- [phone] Reason for Visit * Reason Comments Results Encounter Details Date Type Department Care Team (Late st Contact Info) Description 03/15/2022 Telephone [facility] [address] [address] Ronald Mills MD [address] [place] [address] Results Social History Tobacco Use Types [...] Description 09/30/2024 8:00 PM EDT Procedure visit [facility] [address] [place] [address] [address] [place] [address] 10/31/2024 1:00 PM EDT [facility] 240 [facility] [address] [place] [address] Ronald Mills MD 240 [facility] [address]1 [place] [address] documented as of this encounter Visit Diagnoses Not on filedocumented in this encounter Additional Health Concerns Infection Onset Date Last Indicated Resolved Time COVID-19 03/05/2022 03/05/2022 03/15/2022 7:18 PM EDT Assessment Noted Time PHQ-9 Depression Total Score: 2 11/07/19 19 2:06 PM EDT documented as of this encounter Care Teams Overedge Machine Operator Relationship Specialty Start Date End Date Caitlyn Bowie MD [address] [address] PCP - General Internal Medicine 05/06/21 documented as of this encounter
--- OUTSIDE RECORDS SUMMARY | 2024-09-05 10:58 | XMS_ITS | Encounter Summary ---
Author Organization [facility] Address [address] [place] [address] Care Team Providers Care Wrap Turner Name Role Phone Caitlyn Bowie MD Primary Care Provider +1- [phone] Encounter Details Date Type Department Care Team (Late st Contact Info) Description 01/02/2024 Scanned Document INTERFACE DEFAULT [address] [place] [address] System, Provider Not In Social History Tobacco [...] Description 09/30/2024 8:00 PM EDT Procedure visit [facility] [address] [place] [address] [address] [place] [address] 10/31/2024 1:00 PM EDT Telemedicine [facility] at [facility] 240 [facility] [address] [place] [address] Ronald Mills MD 240 [facility] [address]1 [place] [address] documented as of this encounter Procedures Procedure [...] documented as of this encounter Care Teams Wrap Turner Relationship Specialty Start Date End Date Caitlyn Bowie MD [facility] [address] [address] PCP - General Internal Medicine 05/06/21 documented as of this encounter
--- OUTSIDE RECORDS SUMMARY | 2024-09-05 10:58 | XMS_ITS | Encounter Summary ---
Author Organization [facility] and [facility] Address [address] [place] [address] Care Team Providers Care News Cameraman Name Role Phone Caitlyn Bowie MD Primary Care Provider +1- [phone] Encounter Details Date Type Department Care Team (Late st Contact Info) Description 04/19/2023 Scanned Document INTERFACE DEFAULT [address] [place] [address] System, Provider Not In Social History Tobacco [...] Description 09/30/2024 8:00 PM EDT Procedure visit [facility] [address] [place] [address] [address] [place] [address] 10/31/2024 1:00 PM EDT [facility] 240 [facility] [address] [place] [address] Ronald Mills MD 240 [facility] A1 [place] [address] documented as of this encounter Procedures Procedure [...] documented as of this encounter Care Teams News Cameraman Relationship Specialty Start Date End Date Caitlyn Bowie MD [address] [address] PCP - General Internal Medicine 05/06/21 documented as of this encounter
--- OUTSIDE RECORDS SUMMARY | 2024-09-05 10:58 | XMS_ITS | Encounter Summary ---
Author Organization [facility] Address [address] [place] [address] Care Team Providers Care Shoemaking Cutter Name Role Phone Caitlyn Bowie MD Primary Care Provider +1- [phone] Encounter Details Date Type Department Care Team (Late st Contact Info) Description 05/04/2022 Scanned Document INTERFACE DEFAULT [address] [place] [address] System, Provider Not In Social History Tobacco [...] Description 09/30/2024 8:00 PM EDT Procedure visit [facility] [address] [place] [address] [address] [place] [address] 10/31/2024 1:00 PM EDT Telemedicine [facility] at [facility] 240 [facility] [address] [place] [address] Ronald Mills MD 240 [facility] A1 [place] [address] documented as of this encounter Visit Diagnoses Not on filedocumented in this encounter Additional Health Concerns Assessment Noted Time PHQ-9 Depression Total Score: 2 11/07/19 19 2:06 PM EDT documented as of this encounter Care Teams Shoemaking Cutter Relationship Specialty Start Date End Date Caitlyn Bowie MD [address] [address] PCP - General Internal Medicine 05/06/21 documented as of this encounter
--- OUTSIDE RECORDS SUMMARY | 2024-09-05 10:58 | XMS_ITS | Encounter Summary ---
Author Organization [facility] and [facility] Address 20 [place] [address] Care Team Providers Care Plumbing Service Technician Name Role Phone Caitlyn Bowie MD Primary Care Provider +1- [phone] Encounter Details Date Type Department Care Team (Late st Contact Info) Description 09/24/2015 Scanned Document Digestive Diseases at 40 [facility] [address] [address] Kevin Espinoza MD [address] [place] [phone] Social History Tobacco Use Types Packs/Day Years [...] Description 09/30/2024 8:00 PM EDT Procedure visit [facility] [address] [place] [address] [address] [place] [address] 10/31/2024 1:00 PM EDT Telemedicine Cancer Center at [address] [place] [address] Ronald Mills MD [address] [place] [address] [address] [place] [address] documented as of this encounter Visit Diagnoses Not on filedocumented in this encounter Additional Health Concerns Infection Onset Date Last Indicated Resolved Time COVID-19 03/05/2022 03/05/2022 03/15/2022 7:18 PM EDT documented as of this encounter Care Teams Plumbing Service Technician Relationship Specialty Start Date End Date Caitlyn Bowie MD 3400 [facility] 1 [place] [address] PCP - General Internal Medicine 05/06/21 Henry Kelly MD Pulmonary Department 175 [facility], [address] [place] [address] Physician Pulmonary Disease 09/06/17 06/22/20 documented as of this encounter
--- OUTSIDE RECORDS SUMMARY | 2024-09-05 10:58 | XMS_ITS | Encounter Summary ---
Author Organization [facility] and [facility] Address [address] [place] [address] Care Team Providers Care Machine Greaser Name Role Phone Caitlyn Bowie MD Primary Care Provider +1- [phone] Encounter Details Date Type Department Care Team (Late st Contact Info) Description 10/23/2018 Scanned Document [facility] Health Information Management [address] [place] [address] External, Provider Social History Tobacco Use Types [...] Description 09/30/2024 8:00 PM EDT Procedure visit [facility] [address] [place] [address] [address] [place] [address] 10/31/2024 1:00 PM EDT Telemedicine Cancer Center at [facility] 240 [facility] [address] [place], [place] [phone] Ronald Mills MD 240 [facility] A1 [place] [address] documented as of this encounter Visit Diagnoses Not on filedocumented in this encounter Additional Health Concerns Infection Onset Date Last Indicated Resolved Time COVID-19 03/05/2022 03/05/2022 03/15/2022 7:18 PM EDT documented as of this encounter Care Teams Machine Greaser Relationship Specialty Start Date End Date Caitlyn Bowie MD [address] [facility] 1 [place] [address] PCP - General Internal Medicine 05/06/21 Henry Kelly MD Pulmonary Department 175 [facility], [address] [place] [address] Physician Pulmonary Disease 09/06/17 06/22/20 documented as of this encounter
--- OUTSIDE RECORDS SUMMARY | 2024-09-05 10:58 | XMS_ITS | Encounter Summary ---
Author Organization [facility] Address [address] [place] [address] Care Team Providers Care Vocational Rehab Consultant Name Role Phone Caitlyn Bowie MD Primary Care Provider +1- [phone] Encounter Details Date Type Department Care Team (Latest Contact Info) Description 12/25/2015 Transcribed Orders [facility] 35 [facility] [place] [address] Osmel Briscoe MD Other abnormality of red [...] Description 09/30/2024 8:00 PM EDT Procedure visit [facility] [address] [place] [address] [address] [place] [address] 10/31/2024 1:00 PM EDT Telemedicine Cancer Center at [address] [place], [place] [phone] Ronald Mills MD [address] [place] [address] documented as of this encounter Results * Free kappa lambda with ratio, serum ( GH Q YH) (12/25/2015 10:09 AM EDT) Ig Mcallister Free Light Chain 1.84 0.33 - 1.94 mg/dL [facility] Ig Lambda Free Light Chain 1.96 0.57 - 2.63 mg/dL [facility] Mcallister/Lambda FLC Ratio 0.94 0.26 - 1.65 [facility] Blood specimen (specimen) 12/25/2015 10:09 AM EDT Osmel Briscoe MD LAB BLOOD ORDERABLES Final R [facility] Performing Organization Address [facility] Co de Phone Number [facility] [address] [place] [phone] * Immunofixation, serum (GH L Q YH) (12/25/2015 10:09 AM EDT) Pathologist [facility] Immunofixation Electrophoresis Gel See below See Interp. [facility] Comment: INTERPRETATION: Normal immunofixation electrophoresis. No evidence of a serum monoclonal component. SIGNED BY:Keyur KAYE MD ON 12/29/2015 14:56:04 INTERPRETATION REVIEW : I have reviewed these results and agree with this interpretation. Blood specimen (specimen) 12/25/2015 10:09 AM EDT Osmel Briscoe MD LAB BLOOD ORDERABLES Final R esult Performing Organization Address City/[facility] Co de Phone Number [facility] [address] [place] [phone] * (ABNORMAL) Protein electrophoresis, serum ( GH L YH) (12/25/2015 10:09 AM EDT) Pathologist [facility] Albumin Electrophoresis 3.45(L) 3.50 - 4.70 g/dL [facility] Cjyfk-7-Loyclxao 0.16 0.10 - 0.30 g/dL [facility] Ofltw-4-Bepwbagn 0.81 0.60 - 1.00 g/dL [facility] Beta Globulin 0.86 0.70 - 1.20 g/dL [facility] Gamma Globulin 0.92 0.70 - 1.50 g/dL [facility] SPEP Interpretation See below See Interp. [facility] Comment: INTERPRETATION: No discrete abnormal bands. [...] ORDERABLES Final R esult Performing Organization Address [facility] Co de Phone Number [facility] [address] [place] [address] * Reticulocytes (GH L Q YH) (12/25/2015 10:09 AM EDT) [facility] Reticulocyte Count 2.1 0.6 - 2.7 % [facility] Blood specimen (specimen) 12/25/2015 10:09 AM EDT Osmel Briscoe MD LAB BLOOD ORDERABLES Final R esult Performing Organization Address [facility] Co de Phone Number [facility] [address] [place] [phone] * (ABNORMAL) Sedimentation rate (ESR) (12/25/2015 10:09 AM EDT) [facility] Sed Rate 27(H) 0 - 20 mm/hr [facility] Blood specimen (specimen) 12/25/2015 10:09 AM EDT us Osmel Briscoe MD LAB BLOOD ORDERABLES Final R esult Performing Organization Address [facility] Co de Phone Number [facility] [address] [place] [address] * Ferritin (12/25/2015 10:09 AM EDT) Ferritin 68 9 - 120 ng/mL [facility] Blood specimen (specimen) 12/25/2015 10:09 AM EDT Osmel Briscoe MD LAB BLOOD ORDERABLES Final R esult Performing Organization Address [facility] de Phone Number [facility] [address] [place] [address] * Iron and TIBC (12/25/2015 10:09 AM EDT) Iron 110 50 - 170 ug/dL [facility] TIBC 290 250 - 450 ug/dL [facility] Iron Saturation 38 15 - 50 [facility] Blood specimen (specimen) 12/25/2015 10:09 AM EDT us Osmel Briscoe MD LAB BLOOD ORDERABLES Final R esult Performing Organization Address [facility] de Phone Number [facility] [address] [place] [phone] * Vitamin D 25 hydroxy (BH L YH) (12/25/2015 10:09 AM EDT) Vit D, 25-Hydroxy 43 20 - 50 ng/mL [facility] Comment: A serum 25(OH) vitamin D [...] ORDERABLES Final R esult Performing Organization Address [facility] Co de Phone Number [facility] [address] [place] [address] * TSH ( L YH) (12/25/2015 10:09 AM EDT) TSH cancelled 0.3 - 4.2 uU/mL [facility] TSH 1.62 0.3 - 4.2 uU/mL [facility] Comment:This test is a third generation TSH assay. Blood specimen (specimen) 12/25/2015 10:09 AM EDT Osmel Briscoe MD LAB BLOOD ORDERABLES Final R esult Performing Organization Address [facility] Co de Phone Number [facility] [address] [place] [phone] * (ABNORMAL) CBC and differential (12/25/2015 10:09 AM EDT) CBC with Differential See Below [facility] WBC 9.9 4.0 - 10.0 x 1000/uL [facility] RBC 4.0 3.8 - 5.2 M/uL [facility] Hemoglobin 13.4 12.0 - 16.0 g/dL [facility] Hematocrit 41.0 37.0 - 47.0 % [facility] MCV 101(H) 78 - 94 fL [facility] MCH 33.2(H) 27.0 - 33.0 pg [facility] MCHC 32.8(L) 33.0 - 37.0 g/dL [facility] RDW 12.5 10.8 - 14.5 % [facility] Platelets 265 150 - 350 x 1000/uL [facility] MPV 7.2 6.0 - 10.0 fL [facility] Neutrophils 82(H) 38 - 71 % [facility] Lymphocytes 7(L) 14 - 46 % [facility] Monocytes 10 2 - 15 % [facility] Eosinophils 1 0 - 5 % [facility] Basophils 0 0 - 2 % [facility] ANC (Abs Neutrophil Count) 8.1 1.0 - 9.0 x 1000/uL [facility] Absolute Lymphocyte Count 0.7 0.6 - 4.6 x 1000/uL [facility] Blood specimen (specimen) ARM NEC / Unknown 12/25/2015 10:09 AM EDT us Osmel Briscoe MD LAB BLOOD ORDERABLES Final R esult Performing Organization Address City/State/[facility] Co de Phone Number [facility] [address] [place] [phone] documented in this encounter Visit Diagnoses Diagnosis [...] as of this encounter Care Teams Vocational Rehab Consultant Relationship Specialty Start Date End Date Caitlyn Bowie MD 3[address] [facility] 1 [place] [address] PCP - General Internal Medicine 05/06/21 Henry Kelly MD Pulmonary Department 175 [facility], [address] [place] [address] Physician Pulmonary Disease 09/06/17 06/22/20 documented as of this encounter
--- OUTSIDE RECORDS SUMMARY | 2024-09-05 10:58 | XMS_ITS | Encounter Summary ---
Author Organization [facility] and [facility] Address [address] [place] [address] Care Team Providers Care Elastic Cutter Name Role Phone Caitlyn Bowie MD Primary Care Provider +1- [phone] Encounter Details Date Type Department Care Team (Late st Contact Info) Description 04/13/2023 Scanned Document INTERFACE DEFAULT [address] [place] [address] System, Provider Not In Social History Tobacco [...] Description 09/30/2024 8:00 PM EDT Procedure visit [facility] [address] [place] [address] [address] [place] [address] 10/31/2024 1:00 PM EDT Telemedicine Cancer Center at [facility] 240 [facility] [address] [place] [address] Ronald Mills MD [address] [facility] [address] [place] [address] documented as of this encounter Procedures Procedure [...] documented as of this encounter Care Teams Elastic Cutter Relationship Specialty Start Date End Date Caitlyn Bowie MD [address] [address] PCP - General Internal Medicine 05/06/21 documented as of this encounter
--- OUTSIDE RECORDS SUMMARY | 2024-09-05 10:58 | XMS_ITS | Encounter Summary ---
Author Organization [facility] and [facility] Address [address] [place] [address] Care Team Providers Care Ship Loader Name Role Phone Caitlyn Bowie MD Primary Care Provider +1- [phone] Encounter Details Date Type Department Care Team (Late st Contact Info) Description 09/01/2023 Scanned Document INTERFACE DEFAULT [address] [place] [address] System, Provider Not In Social History Tobacco [...] Description 09/30/2024 8:00 PM EDT Procedure visit [facility] [address] [place] [address] [address] [place] [address] 10/31/2024 1:00 PM EDT Telemedicine Cancer Center at [facility] 240 [facility] [address] [place] [address] Ronald Mills MD 240 [facility] A1 [place] [address] documented as of this encounter Visit Diagnoses Not on filedocumented in this encounter Additional Health Concerns Assessment Noted Time PHQ-9 Depression Total Score: 2 11/07/19 19 2:06 PM EDT documented as of this encounter Care Teams Ship Loader Relationship Specialty Start Date End Date Caitlyn Bowie MD [address] [address] PCP - General Internal Medicine 05/06/21 documented as of this encounter
--- OUTSIDE RECORDS SUMMARY | 2024-09-05 10:58 | XMS_ITS | Encounter Summary ---
Author Organization [facility] Address 20 [place] [address] Care Team Providers Care Jacket Changer Name Role Phone Caitlyn Bowie MD Primary Care Provider +1- [phone] Encounter Details Date Type Department Care Team (Late st Contact Info) Description 09/09/2015 Scanned Document [facility] Health Information Management [address] [place] [address] External, Provider Social History Tobacco Use Types [...] Description 09/30/2024 8:00 PM EDT Procedure visit [facility] [address] [place] [address] [address] [place] [address] 10/31/2024 1:00 PM EDT Telemedicine [facility] Center at [facility] [address] [facility] [address] [place], [place] [address] Ronald Mills MD 240 [facility] [address]1 [place] [phone] documented as of this encounter Procedures Procedure Name Priority Date/Time Associated Diagnosis Comments LAB SCAN Routine 09/09/2015 documented in this encounter Results * Lab Scan (09/09/2015) Blood specimen (specimen) us Provider External LAB BLOOD ORDERABLES Final Res ult Performing Organization Address City/State/[facility] Co de Phone Number [facility] documented in this encounter Visit Diagnoses Not on filedocumented in this encounter Additional Health Concerns Infection Onset Date Last Indicated Resolved Time COVID-19 03/05/2022 03/05/2022 03/15/2022 7:18 PM EDT documented as of this encounter Care Teams Jacket Changer Relationship Specialty Start Date End Date Caitlyn Bowie MD 3400 [facility] Max 1 [place] [address] PCP - General Internal Medicine 05/06/21 Henry Kelly MD Pulmonary Department 175 [facility], [address] [place] [address] Physician Pulmonary Disease 09/06/17 06/22/20 documented as of this encounter
--- OUTSIDE RECORDS SUMMARY | 2024-09-05 10:58 | XMS_ITS | Encounter Summary ---
Author Organization [facility] and [facility] Address 20 [place] [address] Care Team Providers Care Driller And Reamer Name Role Phone Caitlyn Bowie MD Primary Care Provider +1- [phone] Encounter Details Date Type Department Care Team (Late st Contact Info) Description 12/31/2015 Scanned Document [facility] [address] [place] [address] External, Provider Social History Tobacco Use Types [...] Description 09/30/2024 8:00 PM EDT Procedure visit [facility] [address] [place] [address] [address] [place] [address] 10/31/2024 1:00 PM EDT Telemedicine [facility] at [facility] 240 [facility] Building [address] [place], [place] [address] Ronald Mills MD 240 [facility] A1 [place] [address] documented as of this encounter Procedures Procedure Name Priority Date/Time Associated Diagnosis Comments LAB SCAN Routine 12/31/2015 documented in this encounter Results * Lab Scan (12/31/2015) Blood specimen (specimen) us Provider External LAB BLOOD ORDERABLES Final Res ult Performing Organization Address City/State/[facility] Co de Phone Number [facility] documented in this encounter Visit Diagnoses Not on filedocumented in this encounter Additional Health Concerns Infection Onset Date Last Indicated Resolved Time COVID-19 03/05/2022 03/05/2022 03/15/2022 7:18 PM EDT documented as of this encounter Care Teams Driller And Reamer Relationship Specialty Start Date End Date Caitlyn Bowie MD 3400 [facility] 1 [place] [address] PCP - General Internal Medicine 05/06/21 Henry Kelly MD Pulmonary Department 175 [facility], [address] [place] [address] Physician Pulmonary Disease 09/06/17 06/22/20 documented as of this encounter
--- OUTSIDE RECORDS SUMMARY | 2024-09-05 10:58 | XMS_ITS | Encounter Summary ---
Author Organization [facility] Address [address] [place] [address] Care Team Providers Care Outreach Team Member Name Role Phone Caitlyn Bowie MD Primary Care Provider +1- [phone] Encounter Details Date Type Department Care Team (Late st Contact Info) Description 05/10/2022 Scanned Document Cardiovascular Medicine at [address] [address] Norma Renee MD [address] [place] [phone] Social History Tobacco Use Types Packs/Day Years [...] Description 09/30/2024 8:00 PM EDT Procedure visit [facility] [address] [place] [address] [address] [place] [address] 10/31/2024 1:00 PM EDT Telemedicine Cancer Center at [address] [place] [address] Ronald Mills MD 240 [facility] Max [address]1 [place] [address] documented as of this encounter Visit Diagnoses Not on filedocumented in this encounter Additional Health Concerns Assessment Noted Time PHQ-9 Depression Total Score: 2 11/07/19 19 2:06 PM EDT documented as of this encounter Care Teams Outreach Team Member Relationship Specialty Start Date End Date Caitlyn Bowie MD 3400 [facility] 1 [place] [address] PCP - General Internal Medicine 05/06/21 documented as of this encounter
--- OUTSIDE RECORDS SUMMARY | 2024-09-05 10:58 | XMS_ITS | Encounter Summary ---
Author Organization [facility] and [facility] Address [address] [place] [address] Care Team Providers Care Fruit Grower Name Role Phone Caitlyn Bowie MD Primary Care Provider +1- [phone] Encounter Details Date Type Department Care Team (Late st Contact Info) Description 04/22/2022 Scanned Document INTERFACE DEFAULT [address] [place] [address] System, Provider Not In Social History Tobacco [...] 09/30/2024 8:00 PM EDT Procedure visit [facility] [address] [place] [address] [address] [place] [address] 10/31/2024 1:00 PM EDT Telemedicine Cancer Center at [facility] 240 [facility] [address] [place] [address] Ronald Mills MD 240 [facility] [address]1 [place] [address] documented as of this encounter Procedures Procedure [...] as of this encounter Care Teams Fruit Grower Relationship Specialty Start Date End Date Caitlyn Bowie MD [address] [address] PCP - General Internal Medicine 05/06/21 documented as of this encounter
--- OUTSIDE RECORDS SUMMARY | 2024-09-05 10:58 | XMS_ITS | Encounter Summary ---
Author Organization [facility] Address [address] [place] [address] Care Team Providers Care Supervisor Cutting Department Name Role Phone Caitlyn Bowie MD Primary Care Provider +1- [phone] Encounter Details Date Type Department Care Team (Late st Contact Info) Description 04/25/2022 Scanned Document INTERFACE DEFAULT [address] [place] [address] System, Provider Not In Social History Tobacco [...] Description 09/30/2024 8:00 PM EDT Procedure visit [facility] [address] [place] [address] [address] [place] [address] 10/31/2024 1:00 PM EDT Telemedicine Cancer Center at [facility] 240 [facility] [address] [place] [address] Ronald Mills MD 240 [facility] [address]1 [place] [address] documented as of this encounter Visit Diagnoses Not on filedocumented in this encounter Additional Health Concerns Assessment Noted Time PHQ-9 Depression Total Score: 2 11/07/19 19 2:06 PM EDT documented as of this encounter Care Teams Supervisor Cutting Department Relationship Specialty Start Date End Date Caitlyn Bowie MD [address] [address] PCP - General Internal Medicine 05/06/21 documented as of this encounter
--- OUTSIDE RECORDS SUMMARY | 2024-09-05 10:58 | XMS_ITS | Encounter Summary ---
Author Organization [facility] and [facility] Address [address] [place] [address] Care Team Providers Care Winemaker Name Role Phone Cailtyn Bowie MD Primary Care Provider +1- [phone] Reason for Visit * Reason Comments Triage extream dry skin Encounter Details Date Type Department Care Team ([facility] st Contact Info) Description 05/12/2023 Telephone Medical Dermatology at [address] [address] Augustine Vargas MD [address] [place] [phone] Triage (extream dry skin) Social History [...] to her by Dr. Vargas at the [facility]. Requested that she send pictures which [...] know if there's something the can prescribe. [phone] documented in this encounter Plan of Treatment Upcoming Encounters Date Type Department Care Team (Late st Contact Info) Description 09/30/2024 8:00 PM EDT Procedure visit [facility] [address] [place] [address] [address] [place] [address] 10/31/2024 1:00 PM EDT Telemedicine [facility] at [facility] 240 [facility] [address] [place] [address] Ronald Mills MD 240 [facility] Max [address] [place] [address] documented as of this encounter Visit Diagnoses Not on filedocumented in this encounter Additional Health Concerns Assessment Noted Time PHQ-9 Depression Total Score: 2 11/07/19 19 2:06 PM EDT documented as of this encounter Care Teams Winemaker Relationship Specialty Start Date End Date Caitlyn Bowie MD [address] [address] PCP - General Internal Medicine 05/06/21 documented as of this encounter
--- OUTSIDE RECORDS SUMMARY | 2024-09-05 10:58 | XMS_ITS | Encounter Summary ---
Author Organization [facility] and [facility] Address [address] [place] [address] Care Team Providers Care Patient Care Technician Instructor Name Role Phone Caitlyn Bowie MD Primary Care Provider +1- [phone] Encounter Details Date Type Department Care Team (Late Contact Info) Description 04/12/2022 Scanned Document [facility] Health Information Management [address] [place] [address] External, Provider Social History Tobacco Use Types [...] Description 09/30/2024 8:00 PM EDT Procedure visit [facility] [address] [place] [address] [address] [place] [address] 10/31/2024 1:00 PM EDT Telemedicine [facility] at [facility] 240 [facility] [address] [place] [address] Ronald Mills MD 240 [facility] A1 [place] [address] documented as of this encounter [...] as of this encounter Care Teams Patient Care Technician Instructor Relationship Specialty Start Date End Date Caitlyn Bowie MD [address] [place] [phone] PCP - General Internal Medicine 05/06/21 documented as of this encounter
--- OUTSIDE RECORDS SUMMARY | 2024-09-05 10:58 | XMS_ITS | Encounter Summary ---
Author Organization [facility] and [facility] Address [address] [place] [address] Care Team Providers Care Document Imaging Specialist Name Role Phone Caitlyn Bowie MD Primary Care Provider +1- [phone] Encounter Details Date Type Department Care Team (Late st Contact Info) Description 04/18/2022 Scanned Document INTERFACE DEFAULT [address] [place] [phone] System, Provider Not In Social History Tobacco [...] Description 09/30/2024 8:00 PM EDT Procedure visit [facility] [address] [place] [address] [address] [place] [address] 10/31/2024 1:00 PM EDT Telemedicine [facility] at [facility] 240 [facility] [address] [place] [address] Ronald Mills MD 240 [facility] [address]1 [place] [address] documented as of this encounter Visit Diagnoses Not on filedocumented in this encounter Additional Health Concerns Assessment Noted Time PHQ-9 Depression Total Score: 2 11/07/19 19 2:06 PM EDT documented as of this encounter Care Teams Document Imaging Specialist Relationship Specialty Start Date End Date Caitlyn Bowie MD [address] [address] PCP - General Internal Medicine 05/06/21 documented as of this encounter
--- OUTSIDE RECORDS SUMMARY | 2024-09-05 10:58 | XMS_ITS | Encounter Summary ---
Author Organization [facility] and [facility] Address [address] [place] [address] Care Team Providers Care Local Company Hazmat Driver Name Role Phone Caitlyn Bowie MD Primary Care Provider +1- [phone] Encounter Details Date Type Department Care Team (Late st Contact Info) Description 09/09/2015 Scanned Document [facility] Health Information Management [address] [place] [address] External, Provider Social History Tobacco Use Types [...] Description 09/30/2024 8:00 PM EDT Procedure visit [facility] [address] [place] [address] [address] [place] [address] 10/31/2024 1:00 PM EDT Telemedicine Cancer [facility] at [facility] 240 [facility] [address] [place], [place] [address] Ronald Mills MD 240 [facility] A1 [place] [address] documented as of this encounter Procedures Procedure Name Priority Date/Time Associated Diagnosis Comments LAB SCAN Routine 09/09/2015 documented in this encounter Results * Lab Scan (09/09/2015) Blood specimen (specimen) us Provider External LAB BLOOD ORDERABLES Final Res ult Performing Organization Address City/State/[facility] Co de Phone Number [facility] documented in this encounter Visit Diagnoses Not on filedocumented in this encounter Additional Health Concerns Infection Onset Date Last Indicated Resolved Time COVID-19 03/05/2022 03/05/2022 03/15/2022 7:18 PM EDT documented as of this encounter Care Teams Local Company Hazmat Driver Relationship Specialty Start Date End Date Caitlyn Bowie MD 3400 [facility] 1 [place] [address] PCP - General Internal Medicine 05/06/21 Henry Kelly MD Pulmonary Department 175 [facility], [address] [place] [address] Physician Pulmonary Disease 09/06/17 06/22/20 documented as of this encounter
--- OUTSIDE RECORDS SUMMARY | 2024-09-05 10:58 | XMS_ITS | Encounter Summary ---
Author Organization [facility] and [facility] Address [address] [place] [address] Care Team Providers Care School Teacher Name Role Phone Caitlyn Bowie MD Primary Care Provider +1- [phone] Encounter Details Date Type Department Care Team (Late st Contact Info) Description 05/17/2023 Scanned Document INTERFACE DEFAULT [address] [place] [address] System, Provider Not In Social History Tobacco [...] Description 09/30/2024 8:00 PM EDT Procedure visit [facility] [address] [place] [address] [address] [place] [address] 10/31/2024 1:00 PM EDT [facility]medicine [facility] 240 [facility] [address] [place] [address] Ronald Mills MD 240 [facility] A1 [place] [address] documented as of this encounter Procedures Procedure [...] as of this encounter Care Teams School Teacher Relationship Specialty Start Date End Date Caitlyn Bowie MD [address] [address] PCP - General Internal Medicine 05/06/21 documented as of this encounter
--- OUTSIDE RECORDS SUMMARY | 2024-09-05 10:58 | XMS_ITS | Encounter Summary ---
Author Organization [facility] Address [address] [place] [address] [address] [place] [address] Phone Care Team Providers Care Piping Manager Name Role Phone Caitlyn Bowie MD Primary Care Provider +1- [phone] Encounter Details Date Type Department Care Team (Late st Contact Info) Description 08/30/2024 Abstract [facility] [address] [place] [address] [address] [place] [address] Adalgisa Whitney MD [address] [place] [address] [address] [place] [address] Social History Tobacco Use Types [...] Description 09/30/2024 8:00 PM EDT Procedure visit [facility] [address] [place] [address] 10/31/2024 1:00 PM EDT Telemedicine Cancer Center at [address] [place] [address] Ronald Mills MD [address] [place] [address] documented as of this encounter Visit Diagnoses Not on filedocumented in this encounter Additional Health Concerns Assessment Noted Time PHQ-9 Depression Total Score: 2 11/07/19 19 2:06 PM EDT documented as of this encounter Care Teams Piping Manager Relationship Specialty Start Date End Date Caitlyn Bowie MD [address] [address] PCP - General Internal Medicine 05/06/21 documented as of this encounter
--- OUTSIDE RECORDS SUMMARY | 2024-09-05 10:58 | XMS_ITS | Encounter Summary ---
Author Organization [facility] and [facility] Address [address] [place] [address] Care Team Providers Care Attendant Arcade Name Role Phone Caitlyn Bowie MD Primary Care Provider +1- [phone] Encounter Details Date Type Department Care Team (Late st Contact Info) Description 04/28/2022 Scanned Document INTERFACE DEFAULT [address] [place] [address] System, Provider Not In Social History Tobacco [...] Description 09/30/2024 8:00 PM EDT Procedure visit [facility] [address] [place] [address] [address] [place] [address] 10/31/2024 1:00 PM EDT Telemedicine [facility] at [facility] 240 [facility] [address] [place] [address] Ronald Mills MD 240 [facility] [address]1 [place] [address] documented as of this encounter Procedures Procedure [...] documented as of this encounter Care Teams Attendant Arcade Relationship Specialty Start Date End Date Caitlyn Bowie MD [facility] [address] [address] PCP - General Internal Medicine 05/06/21 documented as of this encounter
--- OUTSIDE RECORDS SUMMARY | 2024-09-05 10:59 | XMS_ITS | Encounter Summary ---
Author Organization [facility] Address [address] [place] [address] Care Team Providers Care Industrial Plant Custodian Name Role Phone Cristofer Hope MD Primary Care Provider Victorino Read MD Primary Care Provider Unavaila Sharon Rios Primary Care Provider Unava ilable Brennan Burnett MD Primary Care Provider Unavailab Brennan Salmeron MD Primary Care Provider Unavailab Hayden Montes MD Unavailable [phone] Pallavi Flood NP Unavailable +1- [phone] Caitlyn Bowie MD Primary Care Provider Unava ilable Reason for Visit * Reason Onset Date Comments Wheezing 05/15/2017 Encounter Details Date Type Department Care Team Description 05/15/2017 Telephone Pulmonology - [address] [place] [address] Henry Kelly MD Wheezing Social [...] alliance party insurance information Date of accident/Injury: NA How long has patient had these symptoms?: x 3 days PCP: KIET MONIQUE No account information available. documented in this encounter Plan of Treatment Not on file documented as of this encounter Visit Diagnoses Not on filedocumented in this encounter Care Teams Industrial Plant Custodian Relationship Specialty Start Date End Date Cristofer Hope MD PCP - General Internal Medicine 05/16/17 12/20/17 Victorino Martin MD PCP - General Internal Medicine 12/21/17 08/01/18 Sharon Vides PCP - General Internal Medicine 08/02/18 05/26/20 Brennan Burnett MD PCP - General Internal Medicine 05/27/20 12/07/21 Brennan Burnett MD PCP - General 05/30/12 05/15/17 [address] [place] [address] PCP - General Internal Medicine 12/08/21 Hayden Shah MD [address] [place] [address] Specialist Cardiovascular Disease 09/01/20 Pallavi Flood, ALON [address] [place] [address] Cardiology 09/01/20 documented as of this encounter
--- OUTSIDE RECORDS SUMMARY | 2024-09-05 10:59 | XMS_ITS | Encounter Summary ---
Author Organization [facility] Address [address] [place] [address] Care Team Providers Care Veterinary Assistant Technician Name Role Phone Caitlyn Bowie MD Primary Care Provider +1- [phone] Encounter Details Date Type Department Care Team (Late st Contact Info) Description 01/13/2019 Scanned Document [facility] Health Information Management [address] [place] [address] External, Provider Social History Tobacco Use Types [...] Description 09/30/2024 8:00 PM EDT Procedure visit [facility] [address] [place] [address] [address] [place] [address] 10/31/2024 1:00 PM EDT Telemedicine Cancer Center at [facility] 240 [facility] [address] [place] [address] Ronald Mills MD 240 [facility] A1 [place] [address] documented as of this encounter Procedures Procedure [...] documented as of this encounter Care Teams Veterinary Assistant Technician Relationship Specialty Start Date End Date Caitlyn Bowie MD 3400 [facility] 1 [place] [address] PCP - General Internal Medicine 05/06/21 Henry Kelly MD Pulmonary Department 175 [facility], [address] [place] [address] Physician Pulmonary Disease 09/06/17 06/22/20 documented as of this encounter
--- OUTSIDE RECORDS SUMMARY | 2024-09-05 10:59 | XMS_ITS | Encounter Summary ---
Author Organization [facility] Address [address] [place] [address] Care Team Providers Care Distribution Lead Name Role Phone Caitlyn Bowie MD Primary Care Provider +1- [phone] Encounter Details Date Type Department Care Team (Late st Contact Info) Description 01/30/2019 Scanned Document [facility] Health Information Management [address] [place] [address] External, Provider Social History Tobacco Use Types [...] Description 09/30/2024 8:00 PM EDT Procedure visit [facility] [address] [place] [address] [address] [place] [address] 10/31/2024 1:00 PM EDT Telemedicine Cancer Center at [facility] 240 [facility] [address] [place] [address] Ronald Mills MD 240 [facility] [address]1 [place] [address] documented as of this encounter Procedures Procedure [...] documented as of this encounter Care Teams Distribution Lead Relationship Specialty Start Date End Date Caitlyn Bowie MD 3400 [facility] 1 [place] [address] PCP - General Internal Medicine 05/06/21 Henry Kelly MD Pulmonary Department 175 [facility], [address] [place] [address] Physician Pulmonary Disease 09/06/17 06/22/20 documented as of this encounter
--- OUTSIDE RECORDS SUMMARY | 2024-09-05 10:59 | XMS_ITS | Encounter Summary ---
Author Organization [facility] and [facility] Address [address] [place] [address] Care Team Providers Care Contact Lens Polisher Name Role Phone Caitlyn Bowie MD Primary Care Provider +1- [phone] Encounter Details Date Type Department Care Team (Late st Contact Info) Description 04/19/2024 Scanned Document INTERFACE DEFAULT [address] [place] [address] System, Provider Not In Social History Tobacco [...] Description 09/30/2024 8:00 PM EDT Procedure visit [facility] [address] [place] [address] [address] [place] [address] 10/31/2024 1:00 PM EDT Telemedicine Cancer [facility] at [facility] 240 [facility] [address] [place] [address] Ronald Mills MD 240 [facility] [address]1 [place] [address] documented as of this encounter Procedures Procedure [...] of this encounter Care Teams Contact Lens Polisher Relationship Specialty Start Date End Date Caitlyn Bowie MD [facility] [address] [address] PCP - General Internal Medicine 05/06/21 documented as of this encounter
--- OUTSIDE RECORDS SUMMARY | 2024-09-05 10:59 | XMS_ITS | Encounter Summary ---
Author Organization [facility] Address [address] [place] [address] Care Team Providers Care Table Setter Name Role Phone Caitlyn Bowie MD Primary Care Provider +1- [phone] Encounter Details Date Type Department Care Team (Late st Contact Info) Description 01/08/2019 Scanned Document [facility] Health Information Management [address] [place] [phone] External, Provider Social History Tobacco Use Types [...] Description 09/30/2024 8:00 PM EDT Procedure visit [facility] [address] [place] [address] [address] [place] [address] 10/31/2024 1:00 PM EDT [facility] 240 [facility] [address] [place] [address] Ronald Mills MD 240 [facility] [address]1 [place] [address] documented as of this encounter Procedures Procedure [...] documented as of this encounter Care Teams Table Setter Relationship Specialty Start Date End Date Caitlyn Bowie MD 3400 [facility] [address] 1 [place] [address] PCP - General Internal Medicine 05/06/21 Henry Kelly MD Pulmonary Department 175 [facility], [address] [place] [address] Physician Pulmonary Disease 09/06/17 06/22/20 documented as of this encounter
--- OUTSIDE RECORDS SUMMARY | 2024-09-05 10:59 | XMS_ITS | Encounter Summary ---
Author Organization [facility] and [facility] Address [address] [place] [address] Care Team Providers Care Lens Shaper Grinder Name Role Phone Caitlyn Bowie MD Primary Care Provider +1- [phone] Encounter Details Date Type Department Care Team (Late st Contact Info) Description 12/27/2018 Scanned Document [facility] Health Information Management [address] [place] [phone] External, Provider Social History Tobacco Use Types [...] Description 09/30/2024 8:00 PM EDT Procedure visit [facility] [address] [place] [address] [address] [place] [address] 10/31/2024 1:00 PM EDT Telemedicine Cancer Center at [facility] 240 [facility] [address] [place] [address] Ronald Mills MD 240 [facility] A1 [place] [address] documented as of this encounter Procedures Procedure [...] documented as of this encounter Care Teams Lens Shaper Grinder Relationship Specialty Start Date End Date Caitlyn Bowie MD 3400 [facility] [address] 1 [place] [address] PCP - General Internal Medicine 05/06/21 Henry Kelly MD Pulmonary Department [address] [place] [address], [address] [place] [address] Physician Pulmonary Disease 09/06/17 06/22/20 documented as of this encounter
--- OUTSIDE RECORDS SUMMARY | 2024-09-05 10:59 | XMS_ITS | Encounter Summary ---
Author Organization [facility] and [facility] Address [address] [place] [address] Care Team Providers Care Proof Plate Maker Name Role Phone Caitlyn Bowie MD Primary Care Provider +1- [phone] Encounter Details Date Type Department Care Team (Late st Contact Info) Description 12/16/2015 Scanned Document [facility] Health Information Management [address] [place] [phone] External, Provider Social History Tobacco Use Types [...] Description 09/30/2024 8:00 PM EDT Procedure visit [facility] [address] [place] [address] [address] [place] [address] 10/31/2024 1:00 PM EDT Telemedicine Cancer Center at [facility] 240 [facility] Building [address] [place], [place] [address] Ronald Mills MD 240 [facility] A1 [place] [address] documented as of this encounter Procedures Procedure Name Priority Date/Time Associated Diagnosis Comments US RESULT SCAN Routine 12/16/2015 documented in this encounter Results * US Result Scan (12/16/2015) us Provider External IMG SCAN REPORTS Edited Result - Final [facility] documented in this encounter Visit Diagnoses Not on filedocumented in this encounter Additional Health Concerns Infection Onset Date Last Indicated Resolved Time COVID-19 03/05/2022 03/05/2022 03/15/2022 7:18 PM EDT documented as of this encounter Care Teams Proof Plate Maker Relationship Specialty Start Date End Date Caitlyn Bowie MD 3400 [facility] 1 [place] [address] PCP - General Internal Medicine 05/06/21 Henry Kelly MD Pulmonary Department 175 [facility], [address] [place] [address] Physician Pulmonary Disease 09/06/17 06/22/20 documented as of this encounter
--- OUTSIDE RECORDS SUMMARY | 2024-09-05 10:59 | XMS_ITS | Encounter Summary ---
Author Organization [facility] Address [address] [place] [address] Care Team Providers Care Sign Poster Name Role Phone Caitlyn Bowie MD Primary Care Provider +1- [phone] Encounter Details Date Type Department Care Team (Late st Contact Info) Description 01/26/2019 Scanned Document [facility] Health Information Management [address] [place] [phone] External, Provider Social History Tobacco Use Types [...] Description 09/30/2024 8:00 PM EDT Procedure visit [facility] [address] [place] [address] [address] [place] [address] 10/31/2024 1:00 PM EDT Telemedicine [facility] at [facility] 240 [facility] [address] [place] [address] Ronald Mills MD 240 [facility] A1 [place] [address] documented as of this encounter Procedures Procedure [...] as of this encounter Care Teams Sign Poster Relationship Specialty Start Date End Date Caitlyn Bowie MD [facility] 1 [place] [address] PCP - General Internal Medicine 05/06/21 Henry Kelly MD Pulmonary Department 175 [facility], [address] [place] [address] Physician Pulmonary Disease 09/06/17 06/22/20 documented as of this encounter
--- OUTSIDE RECORDS SUMMARY | 2024-09-05 10:59 | XMS_ITS | Encounter Summary ---
Author Organization [facility] Address [address] [place] [address] Care Team Providers Care Regional Medical Director Name Role Phone Cristofer Hope MD Primary Care Provider Victorino Read MD Primary Care Provider UnavailSharon Kimbrough Primary Care Provider Unava ilBrennan Newman MD Primary Care Provider Unavailab Hayden Montes MD Unavailable Pallavi Flood NP Unavailable +1- [phone] Caitlyn Bowie MD Primary Care Provider Unaailyn shaver Encounter Details Date Type Department Care Team Description 05/18/2017 Release of Information Medical Records [address] [place] [id number] Abstract, Provider Social History Tobacco Use Types [...] on filedocumented in this encounter Care Teams Regional Medical Director Relationship Specialty Start Date End Date Cristofer Hope MD PCP - General Internal Medicine 05/16/17 12/20/17 Victorino Martin MD PCP - General Internal Medicine 12/21/17 08/01/18 Sharon Vides PCP - General Internal Medicine 08/02/18 05/26/20 Brennan Burnett MD PCP - General Internal Medicine 05/27/20 12/07/21 Caitlyn Bowie MD [address] [place] [address] PCP - General Internal Medicine 12/08/21 Hayden Shah MD [address] [place] [address] Specialist Cardiovascular Disease 09/01/20 Pallavi Flood NP [address] [place] [address] Cardiology 09/01/20 documented as of this encounter
--- OUTSIDE RECORDS SUMMARY | 2024-09-05 10:59 | XMS_ITS | Encounter Summary ---
Author Organization [place] [facility] Address [address] [place] [address] Care Team Providers Care Eyewear Consultant Name Role Phone Caitlyn Bowie MD Primary Care Provider +1- [phone] Encounter Details Date Type Department Care Team (Late st Contact Info) Description 04/22/2019 Scanned Document [facility] Health Information Management [address] [place] [address] External, Provider Social History Tobacco Use Types [...] Description 09/30/2024 8:00 PM EDT Procedure visit [facility] [address] [place] [address] [address] [place] [address] 10/31/2024 1:00 PM EDT Telemedicine Cancer Center at [facility] 240 [facility] [address] [place] [address] Ronald Mills MD 240 [facility] A1 [place] [address] documented as of this encounter Visit Diagnoses Not on filedocumented in this encounter Additional Health Concerns Infection Onset Date Last Indicated Resolved Time COVID-19 03/05/2022 03/05/2022 03/15/2022 7:18 PM EDT Assessment Noted Time PHQ-9 Depression Total Score: 2 11/07/19 19 2:06 PM EDT documented as of this encounter Care Teams Eyewear Consultant Relationship Specialty Start Date End Date Caitlyn Bowie MD 3400 [facility] 1 [place] [address] PCP - General Internal Medicine 05/06/21 Henry Kelly MD Pulmonary Department [address] [place] [address], [address] [place] [address] Physician Pulmonary Disease 09/06/17 06/22/20 documented as of this encounter
--- OUTSIDE RECORDS SUMMARY | 2024-09-05 10:59 | XMS_ITS | Encounter Summary ---
Author Organization [facility] and [facility] Address [address] [place] [address] Care Team Providers Care Side Seam Machine Operator Name Role Phone Caitlyn Bowie MD Primary Care Provider +1- [phone] Encounter Details Date Type Department Care Team (Late st Contact Info) Description 12/29/2021 Telephone [facility] at [address] - [address] [address] Ronald Mills MD [address] [place] [address] Social History Tobacco Use Types Packs/Day [...] Miscellaneous Notes * Telephone Encounter - Taya uNno RN - 12/29/2021 3:33 PM EDT Spoke [...] not sure where the blood's coming from. [phone] documented in this encounter Plan of Treatment Upcoming Encounters Date Type Department Care Team (Late st Contact Info) Description 09/30/2024 8:00 PM EDT Procedure visit [facility] [address] [place] [address] [address] [place] [address] 10/31/2024 1:00 PM EDT Telemedicine Cancer Center at [facility] 240 [facility] [address] [place], [place] [address] Ronald Mills MD 240 [facility] A1 [place] [address] documented as of this encounter Visit Diagnoses [...] End Date Caitlyn Bowie MD [address] [address] PCP - General Internal Medicine 05/06/21 documented as of this encounter
--- OUTSIDE RECORDS SUMMARY | 2024-09-05 10:59 | XMS_ITS | Encounter Summary ---
Author Organization [facility] and [facility] Address [address] [place] [address] Care Team Providers Care Charter Driver Name Role Phone Caitlyn Bowie MD Primary Care Provider +1- [phone] Encounter Details Date Type Department Care Team (Late st Contact Info) Description 01/08/2022 Scanned Document INTERFACE DEFAULT [address] [place] [address] System, Provider Not In Social History Tobacco [...] Procedure visit [facility] [address] [place] [address] [address] [place] [address] 10/31/2024 1:00 PM EDT Telemedicine Cancer Center at [facility] 240 [facility] [address] [place] [address] Ronald Mills MD 240 [facility] [address]1 [place] [address] documented as of this encounter Procedures Procedure [...] as of this encounter Care Teams Charter Driver Relationship Specialty Start Date End Date Caitlyn Bowie MD [facility] [address] [address] PCP - General Internal Medicine 05/06/21 documented as of this encounter
--- OUTSIDE RECORDS SUMMARY | 2024-09-05 10:59 | XMS_ITS | Encounter Summary ---
Author Organization [facility] Address [address] [place] [address] Care Team Providers Care Automatic Driller And Reamer Name Role Phone Caitlyn Bowie MD Primary Care Provider +1- [phone] Encounter Details Date Type Department Care Team (Late st Contact Info) Description 02/06/2019 Scanned Document [facility] Health Information Management [address] [place] [address] External, Provider Social History Tobacco Use Types [...] Description 09/30/2024 8:00 PM EDT Procedure visit [facility] [address] [place] [address] [address] [place] [address] 10/31/2024 1:00 PM EDT Telemedicine Cancer Center at [facility] [address] [facility] [address] [place] [address] Ronald Mills MD 240 [facility] A1 [place] [address] documented as of this encounter Procedures Procedure [...] as of this encounter Care Teams Automatic Driller And Reamer Relationship Specialty Start Date End Date Caitlyn Bowie MD 3400 [facility] Max 1 [place] [address] PCP - General Internal Medicine 05/06/21 Henry Kelly MD Pulmonary Department 175 [facility], [address] [place] [address] Physician Pulmonary Disease 09/06/17 06/22/20 documented as of this encounter
--- OUTSIDE RECORDS SUMMARY | 2024-09-05 10:59 | XMS_ITS | Encounter Summary ---
Author Organization [facility] Address [address] [place] [address] Care Team Providers Care Director Education Name Role Phone Caitlyn Bowie MD Primary Care Provider +1- [phone] Encounter Details Date Type Department Care Team (Late st Contact Info) Description 12/01/2015 Scanned Document [facility] Health Information Management [address] [place] [address] External, Provider Social History Tobacco Use Types [...] Description 09/30/2024 8:00 PM EDT Procedure visit [facility] [address] [place] [address] [address] [place] [address] 10/31/2024 1:00 PM EDT Telemedicine [facility] at [facility] 240 [facility] Building [address] [place], [place] [address] Ronald Mills MD 240 [facility] A1 [place] [address] documented as of this encounter Procedures Procedure Name Priority Date/Time Associated Diagnosis Comments CT RESULT SCAN Routine 12/01/2015 documented in this encounter Results * CT Result Scan (12/01/2015) us Provider External IMG SCAN REPORTS Edited Result - Final [facility] [place], [facility] documented in this encounter Visit Diagnoses Not on filedocumented in this encounter Additional Health Concerns Infection Onset Date Last Indicated Resolved Time COVID-19 03/05/2022 03/05/2022 03/15/2022 7:18 PM EDT documented as of this encounter Care Teams Director Education Relationship Specialty Start Date End Date Caitlyn Bowie MD 3400 [facility] 1 [place] [address] PCP - General Internal Medicine 05/06/21 Henry Kelly MD Pulmonary Department 175 [facility], [address] [place] [address] Physician Pulmonary Disease 09/06/17 06/22/20 documented as of this encounter
--- OUTSIDE RECORDS SUMMARY | 2024-09-05 10:59 | XMS_ITS | Clinical Summary ---
Author Organization [facility] Address [address] [place] [address] Care Team Providers Care Administration Professional Name Role Phone Caitlyn Bowie Primary Care Provider [phone] Allergies Active Allergy Reactions Criticality Noted Date [...] Throat tightness Throat tightness Throat tightness Ipratropium S[place]tuck Unknown Medium 12/18/2021 Isosorbide Mononitrate 11/23/2020 Other [...] topic Insurance MEDICARE PART A & B [facility] Care Teams Administration Professional Relationship Specialty Start Date End Date Caitlyn Bowie [address] [place] [address] PCP - General Internal Medicine 07/18/22
--- OUTSIDE RECORDS SUMMARY | 2024-09-05 10:59 | XMS_ITS | Encounter Summary ---
Author Organization [facility] Address [address] [place] [address] Care Team Providers Care Director Enterprise Sales Name Role Phone Caitlyn Bowie MD Primary Care Provider +1- [phone] Encounter Details Date Type Department Care Team (Late st Contact Info) Description 11/04/2015 Scanned Document [facility] Health Information Management [address] [place] [address] External, Provider Social History Tobacco Use Types [...] Description 09/30/2024 8:00 PM EDT Procedure visit [facility] [address] [place] [address] [address] [place] [address] 10/31/2024 1:00 PM EDT Telemedicine [facility] at [facility] 240 [facility] Building [address] [place], [place] [address] Ronald Mills MD 240 [facility] A1 [place] [address] documented as of this encounter Procedures Procedure Name Priority Date/Time Associated Diagnosis Comments NUC MED/PET RESULT SCAN Routine 11/04/2015 documented in this encounter Results * Nuc Med/PET Result Scan (11/04/2015) us Provider External IMG SCAN REPORTS Edited Result - Final [facility] documented in this encounter Visit Diagnoses Not on filedocumented in this encounter Additional Health Concerns Infection Onset Date Last Indicated Resolved Time COVID-19 03/05/2022 03/05/2022 03/15/2022 7:18 PM EDT documented as of this encounter Care Teams Director Enterprise Sales Relationship Specialty Start Date End Date Caitlyn Bowie MD 3400 [facility] 1 [place] [address] PCP - General Internal Medicine 05/06/21 Henry Kelly MD Pulmonary Department 175 [facility], [address] [place] [address] Physician Pulmonary Disease 09/06/17 06/22/20 documented as of this encounter
--- OUTSIDE RECORDS SUMMARY | 2024-09-05 10:59 | XMS_ITS | Encounter Summary ---
Author Organization [facility] Address [address] [place] [phone] Care Team Providers Care Wrist Closer Name Role Phone Caitlyn Bowie MD Primary Care Provider +1- [phone] Encounter Details Date Type Department Care Team (Late st Contact Info) Description 11/03/2015 Scanned Document [facility] Health Information Management [address] [place] [address] External, Provider Social History Tobacco Use Types [...] Description 09/30/2024 8:00 PM EDT Procedure visit [facility] [address] [place] [address] [address] [place] [address] 10/31/2024 1:00 PM EDT Telemedicine Cancer Center at [facility] 240 [facility] Building [address] [place], [place] [address] Ronald Mills MD 240 [facility] A1 [place] [address] documented as of this encounter Procedures Procedure Name Priority Date/Time Associated Diagnosis Comments US RESULT SCAN Routine 11/03/2015 documented in this encounter Results * US Result Scan (11/03/2015) us Provider External IMG SCAN REPORTS Edited Result - Final [facility] documented in this encounter Visit Diagnoses Not on filedocumented in this encounter Additional Health Concerns Infection Onset Date Last Indicated Resolved Time COVID-19 03/05/2022 03/05/2022 03/15/2022 7:18 PM EDT documented as of this encounter Care Teams Wrist Closer Relationship Specialty Start Date End Date Caitlyn Bowie MD 3400 [facility] 1 [place] [address] PCP - General Internal Medicine 05/06/21 Henry Kelly MD Pulmonary Department 175 [facility], [address] [place] [address] Physician Pulmonary Disease 09/06/17 06/22/20 documented as of this encounter
--- OUTSIDE RECORDS SUMMARY | 2024-09-05 10:59 | XMS_ITS | Encounter Summary ---
Author Organization [facility] Address [address] [place] [address] Care Team Providers Care Wool Fleece Grader Name Role Phone Caitlyn Bowie MD Primary Care Provider +1- [phone] Encounter Details Date Type Department Care Team (Late st Contact Info) Description 04/11/2019 Scanned Document [facility] Health Information Management [address] [place] [address] External, Provider Social History Tobacco Use Types [...] Description 09/30/2024 8:00 PM EDT Procedure visit [facility] [address] [place] [address] [address] [place] [address] 10/31/2024 1:00 PM EDT Telemedicine [facility] at [facility] 240 [facility] [address] [place] [address] Ronald Mills MD 240 [facility] [address]1 [place] [address] documented as of this encounter Procedures Procedure [...] documented as of this encounter Care Teams Wool Fleece Grader Relationship Specialty Start Date End Date Caitlyn Bowie MD 3400 [facility] Max 1 [place] [address] PCP - General Internal Medicine 05/06/21 Henry Kelly MD Pulmonary Department 175 [facility], [address] [place] [address] Physician Pulmonary Disease 09/06/17 06/22/20 documented as of this encounter
--- OUTSIDE RECORDS SUMMARY | 2024-09-05 10:59 | XMS_ITS | Encounter Summary ---
Author Organization [facility] Address [address] [place] [address] Care Team Providers Care Manager Export Name Role Phone Caitlyn Bowie MD Primary Care Provider +1- [phone] Encounter Details Date Type Department Care Team (Late st Contact Info) Description 12/28/2018 Scanned Document [facility] Health Information Management [address] [place] [address] External, Provider Social History Tobacco Use Types [...] Description 09/30/2024 8:00 PM EDT Procedure visit [facility] [address] [place] [address] [address] [place] [address] 10/31/2024 1:00 PM EDT Telemedicine Cancer Center at [facility] 240 [facility] [address] [place] [address] Ronald Mills MD 240 [facility] A1 [place] [address] documented as of this encounter Procedures Procedure [...] as of this encounter Care Teams Manager Export Relationship Specialty Start Date End Date Caitlyn Bowie MD [facility]0 [facility] 1 [place] [address] PCP - General Internal Medicine 05/06/21 Henry Kelly MD Pulmonary Department [address] [place] [address], [address] [place] [address] Physician Pulmonary Disease 09/06/17 06/22/20 documented as of this encounter
--- OUTSIDE RECORDS SUMMARY | 2024-09-05 10:59 | XMS_ITS | Encounter Summary ---
Author Organization [facility] Address [address] [place] [address] Care Team Providers Care Senior Compliance Officer Name Role Phone Caitlyn Bowie MD Primary Care Provider +1- [phone] Encounter Details Date Type Department Care Team (Late st Contact Info) Description 01/28/2019 Scanned Document [facility] at [address] [place] [address] Cristian Arreguin MBBS [address] [place] [address] Social History Tobacco Use Types [...] Description 09/30/2024 8:00 PM EDT Procedure visit [facility] [address] [place] [address] [address] [place] [address] 10/31/2024 1:00 PM EDT Telemedicine Cancer Center at [address] [place], [place] [address] Ronald Mills MD 240 [facility] A1 [place] [address] documented as of this encounter Visit Diagnoses Not on filedocumented in this encounter Additional Health Concerns Infection Onset Date Last Indicated Resolved Time COVID-19 03/05/2022 03/05/2022 03/15/2022 7:18 PM EDT Assessment Noted Time PHQ-9 Depression Total Score: 2 11/07/19 19 2:06 PM EDT documented as of this encounter Care Teams Senior Compliance Officer Relationship Specialty Start Date End Date Caitlyn Bowie MD 3400 [facility] 1 [place] [address] PCP - General Internal Medicine 05/06/21 Henry Kelly MD Pulmonary Department 175 [facility], [address] [place] [address] Physician Pulmonary Disease 09/06/17 06/22/20 documented as of this encounter
--- OUTSIDE RECORDS SUMMARY | 2024-09-05 10:59 | XMS_ITS | Encounter Summary ---
Author Organization [facility] and [facility] Address [address] [place] [address] Care Team Providers Care Travel Service Consultant Name Role Phone Caitlyn Bowie MD Primary Care Provider +1- [phone] Encounter Details Date Type Department Care Team (Late st Contact Info) Description 01/02/2019 Scanned Document [facility] Health Information Management [address] [place] [address] External, Provider Social History Tobacco Use Types [...] 09/30/2024 8:00 PM EDT Procedure visit [facility] [address] [place] [address] [address] [place] [address] 10/31/2024 1:00 PM EDT Telemedicine Cancer Center at [facility] 240 [facility] [address] [place] [address] Ronald Mills MD 240 [facility] A1 [place] [address] documented as of this encounter Procedures Procedure [...] documented as of this encounter Care Teams Travel Service Consultant Relationship Specialty Start Date End Date Caitlyn Bowie MD [address]00 [facility] 1 [place] [address] PCP - General Internal Medicine 05/06/21 Henry Kelly MD Pulmonary Department 175 [facility], [address] [place] [address] Physician Pulmonary Disease 09/06/17 06/22/20 documented as of this encounter
--- OUTSIDE RECORDS SUMMARY | 2024-09-05 10:59 | XMS_ITS | Encounter Summary ---
Author Organization [facility] Address [address] [place] [address] Care Team Providers Care Copy And Print Associate Name Role Phone Caitlyn Bowie MD Primary Care Provider +1- [phone] Encounter Details Date Type Department Care Team (Late st Contact Info) Description 03/12/2019 Scanned Document [facility] Health Information Management [address] [place] [address] External, Provider Social History Tobacco Use Types [...] Description 09/30/2024 8:00 PM EDT Procedure visit [facility] [address] [place] [address] [address] [place] [address] 10/31/2024 1:00 PM EDT [facility]medicine [facility] at [facility] 240 [facility] [address] [place] [address] Ronald Mills MD 240 [facility] A1 [place] [address] documented as of this encounter Procedures Procedure [...] as of this encounter Care Teams Copy And Print Associate Relationship Specialty Start Date End Date Caitlyn Bowie MD 3400 [facility] Max 1 [place] [address] PCP - General Internal Medicine 05/06/21 Henry Kelly MD Pulmonary Department 175 [facility], [address] [place] [address] Physician Pulmonary Disease 09/06/17 06/22/20 documented as of this encounter
--- OUTSIDE RECORDS SUMMARY | 2024-09-05 10:59 | XMS_ITS | Encounter Summary ---
Author Organization [facility] Address [address] [place] [address] Care Team Providers Care Chainstitch Seat Joiner Name Role Phone Caitlyn Bowie MD Primary Care Provider +1- [phone] Encounter Details Date Type Department Care Team (Late st Contact Info) Description 04/23/2024 Scanned Document INTERFACE DEFAULT [address] [place] [address] System, Provider Not In Social History Tobacco [...] Description 09/30/2024 8:00 PM EDT Procedure visit [facility] [address] [place] [address] [address] [place] [address] 10/31/2024 1:00 PM EDT Telemedicine [facility] at [facility] 240 [facility] [address] [place] [address] Ronald Mills MD 240 [facility] A1 [place] [address] documented as of this encounter Procedures Procedure [...] documented as of this encounter Care Teams Chainstitch Seat Joiner Relationship Specialty Start Date End Date Caitlyn Bowie MD [address] [address] PCP - General Internal Medicine 05/06/21 documented as of this encounter
--- OUTSIDE RECORDS SUMMARY | 2024-09-05 10:59 | XMS_ITS | Encounter Summary ---
Author Organization [facility] Address [address] [place] [address] Care Team Providers Care Certified Novell Engineer Name Role Phone Caitlyn Bowie MD Primary Care Provider +1- [phone] Encounter Details Date Type Department Care Team (Late st Contact Info) Description 01/17/2019 Scanned Document [facility] Health Information Management [address] [place] [address] External, Provider Social History Tobacco Use Types [...] Description 09/30/2024 8:00 PM EDT Procedure visit [facility] [address] [place] [address] [address] [place] [address] 10/31/2024 1:00 PM EDT Telemedicine [facility] 240 [facility] [address] [place] [address] Ronald Mills MD 240 [facility] A1 [place] [address] documented as of this encounter Procedures Procedure [...] as of this encounter Care Teams Certified Novell Engineer Relationship Specialty Start Date End Date Caitlyn Bowie MD 3400 [facility] 1 [place] [address] PCP - General Internal Medicine 05/06/21 Henry Kelly MD Pulmonary Department 175 [facility], [address] [place] [address] Physician Pulmonary Disease 09/06/17 06/22/20 documented as of this encounter
--- OUTSIDE RECORDS SUMMARY | 2024-09-05 10:59 | XMS_ITS | Encounter Summary ---
Author Organization [facility] Address [address] [place] [address] Care Team Providers Care Certification Officer Name Role Phone Pcp, No Primary Care Provider Brennan Mario MD Primary Care Provider [phone] Caitlyn Bowie MD Primary Care Provider +1- [phone] Encounter Details Date Type Department Care Team (Late st Contact Info) Description 01/04/2022 Scanned Document [facility] Neurology Ophthalmology [address] [address] Yary Whitten DO [address] [place] [address] Social History Tobacco Use Types Packs/Day [...] on filedocumented in this encounter Care Teams Certification Officer Relationship Specialty Start Date End Date Pcp, No PCP - General General Medicine 10/04/21 07/18/22 Brennan Burnett MD [address] [place] [address] PCP - General 07/19/22 03/19/23 Caitlyn Bowie MD [address]00 [place] [address] PCP - General Internal Medicine 03/20/23 documented as of this encounter
--- OUTSIDE RECORDS SUMMARY | 2024-09-05 10:59 | XMS_ITS | Encounter Summary ---
Author Organization [facility] Address [address] [place] [address] Care Team Providers Care Tape Coater Name Role Phone Caitlyn Bowie MD Primary Care Provider +1- [phone] Encounter Details Date Type Department Care Team (Late st Contact Info) Description 03/20/2023 Scanned Document [facility] Radiology [address] [place] [address] Caitlyn Bowie MD [address] [place] [address] Social History Tobacco Use Types Packs/Day Years [...] on filedocumented in this encounter Care Teams Tape Coater Relationship Specialty Start Date End Date Caitlyn Bowie MD [address] [place] [address] PCP - General Internal Medicine 03/20/23 documented as of this encounter
--- OUTSIDE RECORDS SUMMARY | 2024-09-05 10:59 | XMS_ITS | Encounter Summary ---
Author Organization [facility] and [facility] Address [address] [place] [address] Care Team Providers Care Sales And Retail Management Recruiter Name Role Phone Caitlyn Bowie MD Primary Care Provider +1- [phone] Encounter Details Date Type Department Care Team (Late st Contact Info) Description 04/08/2024 Scanned Document INTERFACE DEFAULT [address] [place] [address] System, Provider Not In Social History Tobacco [...] EDT Procedure visit [facility] [address] [place] [address] [address] [place] [address] 10/31/2024 1:00 PM EDT Telemedicine Cancer Center at [facility] [address] [facility] [address] [place] [address] Ronald Mills MD 240 [facility] [address] [place] [address] documented as of this encounter Procedures Procedure [...] End Date Caitlyn Bowie MD [address] [address] PCP - General Internal Medicine 05/06/21 documented as of this encounter
--- OUTSIDE RECORDS SUMMARY | 2024-09-05 10:59 | XMS_ITS | Continuity of Care Document ---
Author Organization [facility] Address [address] [place] [address] [address] [place] [address] Phone Care Team Providers Care Roller Skate Assembler Name Role Phone Musa Hughes M.D. Unavailable [...] Encounter [facility], [address] [place] [address], [id number], tel:[phone] [facility] [place] No Information Saul Vigil. [address] [place] [address], [address] [place] [address] , . tel: [phone] Exam Level V [facility], [address] [place] [address], [id number], tel:[phone] [facility] [place] Visual Field Defect UnspOptic NeuritisLow Tension GlaucomaHeadacheH emangioma, Unspecified SiteMultiple SclerosisPhotopsi aDiplopiaConverge nce InsufficiencyDry Eye Syndrome Huy Foster. [address] [place] [address], [address] [place] [address] , . tel: [phone] Referring Provider: MD Mariama Persaud, [address] [place] [address] [place], [id number]. tel:[phone] New Pt. Level V [facility] Renea Carrillo, [address] [place] [address], [id number], tel:[phone] [facility] [place] - (chief complaint) - (chief complaint) - (chief complaint) - (chief complaint) - (chief complaint) - (chief complaint) Optic NeuritisHeadacheV isual Field Defect UnspLow Tension GlaucomaLow Tension GlaucomaOptic NeuritisSeizure DisorderVisual Field Defect UnspHemangioma, Unspecified SiteConvergence InsufficiencyCoag defect von Willebrand dis 1 Huy Foster. [address] [place] [address], [id number] , . tel: [phone] Referring Provider: MD Mariama Persaud, [address] [place] [address] [place], [address]. tel:[phone] Family History Family Member Type Diagnosis Age At Onset Sister Problem (finding) Leukemia Mother Problem (finding) Cancer, lung Payers Payer name Insurance type Covered alliance party ID Authoriza tion(s) Medicare Primary MB [id number] BCBS NATIONAL PLAN [id number] Social History Type Description Quantity Date Captured [...]
--- OUTSIDE RECORDS SUMMARY | 2024-09-05 10:59 | XMS_ITS | Encounter Summary ---
Author Organization [facility] and [facility] Address [address] [place] [address] Care Team Providers Care French Weaver Name Role Phone Caitlyn Bowie MD Primary Care Provider +1- [phone] Encounter Details Date Type Department Care Team (Late st Contact Info) Description 01/28/2019 Scanned Document [facility] Health Information Management [address] [place] [address] External, Provider Social History Tobacco Use Types [...] Description 09/30/2024 8:00 PM EDT Procedure visit [facility] [address] [place] [address] [address] [place] [address] 10/31/2024 1:00 PM EDT Telemedicine Cancer Center at [facility] 240 [facility] [address] [place] [address] Ronald Mills MD 240 [facility] [address] [place] [address] documented as of this encounter Visit Diagnoses Not on filedocumented in this encounter Additional Health Concerns Infection Onset Date Last Indicated Resolved Time COVID-19 03/05/2022 03/05/2022 03/15/2022 7:18 PM EDT Assessment Noted Time PHQ-9 Depression Total Score: 2 11/07/19 19 2:06 PM EDT documented as of this encounter Care Teams French Weaver Relationship Specialty Start Date End Date Caitlyn Bowie MD 3400 [facility] 1 [place] [address] PCP - General Internal Medicine 05/06/21 Henry Kelly MD Pulmonary Department [address] [place] [address], [address] [place] [address] Physician Pulmonary Disease 09/06/17 06/22/20 documented as of this encounter
--- OUTSIDE RECORDS SUMMARY | 2024-09-05 10:59 | XMS_ITS | Encounter Summary ---
Author Organization [facility] and [facility] Address [address] [place] [address] Care Team Providers Care Blood Typer Name Role Phone Caitlyn Bowie MD Primary Care Provider +1- [phone] Encounter Details Date Type Department Care Team (Late st Contact Info) Description 01/09/2019 Scanned Document [facility] Health Information Management [address] [place] [address] External, Provider Social History Tobacco Use Types [...] Description 09/30/2024 8:00 PM EDT Procedure visit [facility] [address] [place] [address] [address] [place] [address] 10/31/2024 1:00 PM EDT Telemedicine Cancer Center at [facility] 240 [facility] [address] [place] [address] Ronald Mills MD 240 [facility] [address]1 [place] [address] documented as of this encounter Procedures Procedure [...] documented as of this encounter Care Teams Blood Typer Relationship Specialty Start Date End Date Caitlyn Bowie MD 3400 [facility] [address] 1 [place] [address] PCP - General Internal Medicine 05/06/21 Henry Kelly MD Pulmonary Department [address] [place] [address], [address] [place] [address] Physician Pulmonary Disease 09/06/17 06/22/20 documented as of this encounter
--- OUTSIDE RECORDS SUMMARY | 2024-09-05 10:59 | XMS_ITS ---
Author Organization [facility] Address [address] [address] Care Team Providers Care Balance Engineer Name Role Phone EVELIN RAMSAY Primary Care Provider Yenny Hou Unavailable [phone] REASON FOR [facility]IT [facility] ifect disease dept Encounters Encounter Location Date Provider Diagnosis [facility] [address] [address] 06/11/2024 Yenny Elizalde Plan Of Treatment No Information Progress Notes * ONOFRE WATSON:1945 (79 yo F)Acc No.[id number]:06/11/2024 Patient:?CINDA WATSON :1945???Age:79 Y???Sex:Female Address:[address] [place] [address], [address] * true * Date:? Generated for Arely paige/Sebastian/eTransmitting on:?09/05/2024 10:59 AM EST
--- OUTSIDE RECORDS SUMMARY | 2024-09-05 10:59 | XMS_ITS | Encounter Summary ---
Author Organization [facility] and [facility] Address [address] [place] [address] Care Team Providers Care Senior Mechanical Project Engineer Name Role Phone Caitlyn Bowie MD Primary Care Provider +1- [phone] Encounter Details Date Type Department Care Team (Late st Contact Info) Description 02/08/2016 Scanned Document [facility] Health Information Management [address] [place] [address] External, Provider Social History Tobacco Use Types [...] Description 09/30/2024 8:00 PM EDT Procedure visit [facility] [address] [place] [address] [address] [place] [address] 10/31/2024 1:00 PM EDT Telemedicine Cancer Center at [facility] 240 [facility] Building [address] [place], [place] [address] Ronald Mills MD 240 [facility] [address]1 [place] [address] documented as of this encounter Visit Diagnoses Not on filedocumented in this encounter Additional Health Concerns Infection Onset Date Last Indicated Resolved Time COVID-19 03/05/2022 03/05/2022 03/15/2022 7:18 PM EDT documented as of this encounter Care Teams Senior Mechanical Project Engineer Relationship Specialty Start Date End Date Caitlyn Bowie MD 3400 [facility] [address] 1 [place] [address] PCP - General Internal Medicine 05/06/21 Henry Kelly MD Pulmonary Department 175 [facility], [address] [place] [address] Physician Pulmonary Disease 09/06/17 06/22/20 documented as of this encounter
--- OUTSIDE RECORDS SUMMARY | 2024-09-05 10:59 | XMS_ITS | Encounter Summary ---
Author Organization [facility] Address [address] [place] [address] Care Team Providers Care Billing Analyst Name Role Phone Caitlyn Bowie MD Primary Care Provider +1- [phone] Encounter Details Date Type Department Care Team (Late st Contact Info) Description 12/03/2015 Scanned Document [facility] Health Information Management [address] [place] [address] External, Provider Social History Tobacco Use Types [...] Description 09/30/2024 8:00 PM EDT Procedure visit [facility] [address] [place] [address] [address] [place] [address] 10/31/2024 1:00 PM EDT Telemedicine Cancer [facility] at [facility] 240 [facility] Building [address] [place], [place] [address] Ronald Mills MD 240 [facility] A1 [place] [address] documented as of this encounter Procedures Procedure Name Priority Date/Time Associated Diagnosis Comments LAB SCAN Routine 12/03/2015 documented in this encounter Results * Lab Scan (12/03/2015) Blood specimen (specimen) us Provider External LAB BLOOD ORDERABLES Edited Re sult - Final [facility] [place], [facility] documented in this encounter Visit Diagnoses Not on filedocumented in this encounter Additional Health Concerns Infection Onset Date Last Indicated Resolved Time COVID-19 03/05/2022 03/05/2022 03/15/2022 7:18 PM EDT documented as of this encounter Care Teams Billing Analyst Relationship Specialty Start Date End Date Caitlyn Bowie MD 3400 [facility] 1 [place] [address] PCP - General Internal Medicine 05/06/21 Henry Kelly MD Pulmonary Department 175 [facility], [address] [place] [address] Physician Pulmonary Disease 09/06/17 06/22/20 documented as of this encounter
--- OUTSIDE RECORDS SUMMARY | 2024-09-05 11:00 | XMS_ITS | Encounter Summary ---
Author Organization [facility] [place] Address [address] [place] [address] Care Team Providers Care Golf Club Assembler Name Role Phone Caitlyn Bowie MD Primary Care Provider +1- [phone] Encounter Details Date Type Department Care Team (Late st Contact Info) Description 12/16/2016 Scanned Document [facility] Health Information Management [address] [place] [address] External, Provider Social History Tobacco Use Types [...] Description 09/30/2024 8:00 PM EDT Procedure visit [facility] [address] [place] [address] [address] [place] [address] 10/31/2024 1:00 PM EDT Telemedicine Cancer Center at [facility] 240 [facility] Building [address] [place], [place] [address] Ronald Mills MD 240 [facility] [address]1 [place] [address] documented as of this encounter Procedures Procedure [...] documented as of this encounter Care Teams Golf Club Assembler Relationship Specialty Start Date End Date Caitlyn Bowie MD 3400 [facility] 1 [place] [address] PCP - General Internal Medicine 05/06/21 Henry Kelly MD Pulmonary Department 175 [facility], [address] [place] [address] Physician Pulmonary Disease 09/06/17 06/22/20 documented as of this encounter
--- OUTSIDE RECORDS SUMMARY | 2024-09-05 11:00 | XMS_ITS | Encounter Summary ---
Author Organization [facility] and [facility] Address [address] [place] [address] Care Team Providers Care Automobile Repossessor Name Role Phone Caitlyn Bowie MD Primary Care Provider +1- [phone] Encounter Details Date Type Department Care Team (Late st Contact Info) Description 07/27/2016 Scanned Document [facility] On[facility] Program at [address] [address] Suzy Kong MD [address] [place] [address] Social History Tobacco Use Types Packs/Day [...] Description 09/30/2024 8:00 PM EDT Procedure visit [facility] [address] [place] [address] [address] [place] [address] 10/31/2024 1:00 PM EDT Telemedicine Cancer Center at [address] [place] [address] Ronald Mills MD [address] [place] [address], [place] [address] documented as of this encounter Visit Diagnoses Not on filedocumented in this encounter Additional Health Concerns Infection Onset Date Last Indicated Resolved Time COVID-19 03/05/2022 03/05/2022 03/15/2022 7:18 PM EDT documented as of this encounter Care Teams Automobile Repossessor Relationship Specialty Start Date End Date Caitlyn Bowie MD 3400 [facility] 1 [place] [address] PCP - General Internal Medicine 05/06/21 Henry Kelly MD Pulmonary Department [address] [place] [address], [address] [place] [address] Physician Pulmonary Disease 09/06/17 06/22/20 documented as of this encounter
--- OUTSIDE RECORDS SUMMARY | 2024-09-05 11:00 | XMS_ITS | Encounter Summary ---
Author Organization [facility] and [facility] Address [address] [place] [address] Care Team Providers Care Nuclear Medicine Technician Name Role Phone Caitlyn Bowie MD Primary Care Provider +1- [phone] Encounter Details Date Type Department Care Team (Late st Contact Info) Description 06/17/2016 Scanned Document [facility] Health Information Management [address] [place] [address] External, Provider Social History Tobacco Use Types [...] Description 09/30/2024 8:00 PM EDT Procedure visit [facility] [address] [place] [address] [address] [place] [address] 10/31/2024 1:00 PM EDT Telemedicine Cancer Center at [facility] 240 [facility] [address] [place], [place] [address] Ronald Mills MD [address] [facility] [address]1 [place] [address] documented as of this encounter Visit Diagnoses Not on filedocumented in this encounter Additional Health Concerns Infection Onset Date Last Indicated Resolved Time COVID-19 03/05/2022 03/05/2022 03/15/2022 7:18 PM EDT documented as of this encounter Care Teams Nuclear Medicine Technician Relationship Specialty Start Date End Date Caitlyn Bowie MD 3400 [facility] [address] 1 [place] [address] PCP - General Internal Medicine 05/06/21 Henry Kelly MD Pulmonary Department 175 [facility], [address] [place] [address] Physician Pulmonary Disease 09/06/17 06/22/20 documented as of this encounter
--- OUTSIDE RECORDS SUMMARY | 2024-09-05 11:00 | XMS_ITS | Encounter Summary ---
Author Organization [facility] Address [address] [place] [address] Care Team Providers Care Naval Architect Name Role Phone Caitlyn Bowie MD Primary Care Provider +1- [phone] Encounter Details Date Type Department Care Team (Late st Contact Info) Description 12/14/2016 Scanned Document [facility] Health Information Management [address] [place] [address] External, Provider Social History Tobacco Use Types [...] Description 09/30/2024 8:00 PM EDT Procedure visit [facility] [address] [place] [address] [address] [place] [address] 10/31/2024 1:00 PM EDT Telemedicine Cancer Center at [facility] 240 [facility] Building [address] [place], [place] [address] Ronald Mills MD 240 [facility] [address]1 [place] [address] documented as of this encounter Procedures Procedure [...] documented as of this encounter Care Teams Naval Architect Relationship Specialty Start Date End Date Caitlyn Bowie MD 3400 [facility] 1 [place] [address] PCP - General Internal Medicine 05/06/21 Henry Kelly MD Pulmonary Department 175 [facility], [address] [place] [address] Physician Pulmonary Disease 09/06/17 06/22/20 documented as of this encounter
--- OUTSIDE RECORDS SUMMARY | 2024-09-05 11:00 | XMS_ITS | Encounter Summary ---
Author Organization [facility] and [facility] Address [address] [place] [address] Care Team Providers Care Lineman A Class Name Role Phone Caitlyn Bowie MD Primary Care Provider +1- [phone] Encounter Details Date Type Department Care Team (Late st Contact Info) Description 07/08/2016 Scanned Document [facility] Health Information Management [address] [place] [address] External, Provider Social History Tobacco Use Types [...] Description 09/30/2024 8:00 PM EDT Procedure visit [facility] [address] [place] [address] [address] [place] [address] 10/31/2024 1:00 PM EDT Telemedicine Cancer Center at [facility] 240 [facility] Building [address] [place], [place] [address] Ronald Mills MD 240 [facility] A1 [place] [address] documented as of this encounter Procedures Procedure Name Priority Date/Time Associated Diagnosis Comments LAB SCAN Routine 07/08/2016 documented in this encounter Results * Lab Scan (07/08/2016) Blood specimen (specimen) us Provider External LAB BLOOD ORDERABLES Final Res ult Performing Organization Address City/State/[facility] Co de Phone Number [facility] documented in this encounter Visit Diagnoses Not on filedocumented in this encounter Additional Health Concerns Infection Onset Date Last Indicated Resolved Time COVID-19 03/05/2022 03/05/2022 03/15/2022 7:18 PM EDT documented as of this encounter Care Teams Lineman A Class Relationship Specialty Start Date End Date Caitlyn Bowie MD 3400 [facility] [address] 1 [place] [address] PCP - General Internal Medicine 05/06/21 Henry Kelly MD Pulmonary Department 175 [facility], [address] [place] [address] Physician Pulmonary Disease 09/06/17 06/22/20 documented as of this encounter
--- OUTSIDE RECORDS SUMMARY | 2024-09-05 11:00 | XMS_ITS | Encounter Summary ---
Author Organization [facility] and [facility] Address [address] [place] [address] Care Team Providers Care Braider Operator Name Role Phone Caitlyn Bowie MD Primary Care Provider +1- [phone] Encounter Details Date Type Department Care Team (Late st Contact Info) Description 04/04/2016 Scanned Document [facility] Health Information Management [address] [place] [address] External, Provider Social History Tobacco Use Types [...] Description 09/30/2024 8:00 PM EDT Procedure visit [facility] [address] [place] [address] [address] [place] [address] 10/31/2024 1:00 PM EDT Telemedicine [facility] at [facility] 240 [facility] Building [address] [place], [place] [address] Ronald Mills MD 240 [facility] A1 [place] [address] documented as of this encounter Procedures Procedure Name Priority Date/Time Associated Diagnosis Comments LAB SCAN Routine 04/04/2016 documented in this encounter Results * Lab Scan (04/04/2016) Blood specimen (specimen) us Provider External LAB BLOOD ORDERABLES Final Res ult Performing Organization Address City/State/[facility] Co de Phone Number [facility] documented in this encounter Visit Diagnoses Not on filedocumented in this encounter Additional Health Concerns Infection Onset Date Last Indicated Resolved Time COVID-19 03/05/2022 03/05/2022 03/15/2022 7:18 PM EDT documented as of this encounter Care Teams Braider Operator Relationship Specialty Start Date End Date Caitlyn Bowie MD 3400 [facility] [address] 1 [place] [address] PCP - General Internal Medicine 05/06/21 Henry Kelly MD Pulmonary Department 175 [facility], [address] [place] [address] Physician Pulmonary Disease 09/06/17 06/22/20 documented as of this encounter
--- OUTSIDE RECORDS SUMMARY | 2024-09-05 11:00 | XMS_ITS | Encounter Summary ---
Author Organization [facility] and [facility] Address [address] [place] [address] Care Team Providers Care Regional Airline Pilot Name Role Phone Caitlyn Bowie MD Primary Care Provider +1- [phone] Encounter Details Date Type Department Care Team (Late st Contact Info) Description 10/10/2016 Scanned Document [facility] Health Information Management [address] [place] [address] External, Provider Social History Tobacco Use Types [...] Description 09/30/2024 8:00 PM EDT Procedure visit [facility] [address] [place] [address] [address] [place] [address] 10/31/2024 1:00 PM EDT Telemedicine Cancer Center at [facility] 240 [facility] Building [address] [place], [place] [address] Ronald Mills MD 240 [facility] A1 [place] [address] documented as of this encounter Visit Diagnoses Not on filedocumented in this encounter Additional Health Concerns Infection Onset Date Last Indicated Resolved Time COVID-19 03/05/2022 03/05/2022 03/15/2022 7:18 PM EDT documented as of this encounter Care Teams Regional Airline Pilot Relationship Specialty Start Date End Date Caitlyn Bowie MD 3400 [facility] [address] 1 [place] [address] PCP - General Internal Medicine 05/06/21 Henry Kelly MD Pulmonary Department 175 [facility], [address] [place] [address] Physician Pulmonary Disease 09/06/17 06/22/20 documented as of this encounter
--- OUTSIDE RECORDS SUMMARY | 2024-09-05 11:00 | XMS_ITS | Encounter Summary ---
Author Organization [facility] and [facility] Address [address] [place] [address] Care Team Providers Care Online Advertising Analyst Name Role Phone Caitlyn Bowie MD Primary Care Provider +1- [phone] Encounter Details Date Type Department Care Team (Late st Contact Info) Description 12/14/2016 Scanned Document [facility] Health Information Management [address] [place] [address] External, Provider Social History Tobacco Use Types [...] 09/30/2024 8:00 PM EDT Procedure visit [facility] [address] [place] [address] [address] [place] [address] 10/31/2024 1:00 PM EDT Telemedicine [facility] at [facility] [address] [facility] [address] [place], [place] [address] Ronald Mills MD [address] [facility] [address] [place] [phone] documented as of this encounter Visit Diagnoses Not on filedocumented in this encounter Additional Health Concerns Infection Onset Date Last Indicated Resolved Time COVID-19 03/05/2022 03/05/2022 03/15/2022 7:18 PM EDT documented as of this encounter Care Teams Online Advertising Analyst Relationship Specialty Start Date End Date Caitlyn Bowie MD [address] [facility] [address] [place] [address] PCP - General Internal Medicine 05/06/21 Henry Kelly MD Pulmonary Department [address] [facility], [address] [place] [address] Physician Pulmonary Disease 09/06/17 06/22/20 documented as of this encounter
--- OUTSIDE RECORDS SUMMARY | 2024-09-05 11:00 | XMS_ITS | Encounter Summary ---
Author Organization [facility] and [facility] Address [address] [place] [address] Care Team Providers Care Search Consultant Name Role Phone Caitlyn Bowie MD Primary Care Provider +1- [phone] Encounter Details Date Type Department Care Team (Late st Contact Info) Description 06/17/2016 Scanned Document [facility] Health Information Management [address] [place] [address] External, Provider Social History Tobacco Use Types [...] Description 09/30/2024 8:00 PM EDT Procedure visit [facility] [address] [place] [address] [address] [place] [address] 10/31/2024 1:00 PM EDT Telemedicine [facility] at [facility] [address] [facility] [address] [place], [place] [address] Ronald Mills MD [address] [facility] [address] [place] [phone] documented as of this encounter Procedures Procedure Name Priority Date/Time Associated Diagnosis Comments XRAY RESULT SCAN Routine 06/17/2016 documented in this encounter Results * Xray Result Scan (06/17/2016) us Provider External IMG SCAN REPORTS Final Result Performing Organization Address City/State/[facility] Co de Phone Number [facility] [place], [place], [facility] documented in this encounter Visit Diagnoses Not on filedocumented in this encounter Additional Health Concerns Infection Onset Date Last Indicated Resolved Time COVID-19 03/05/2022 03/05/2022 03/15/2022 7:18 PM EDT documented as of this encounter Care Teams Search Consultant Relationship Specialty Start Date End Date Caitlyn Bowie MD [address] [facility] 1 [place] [address] PCP - General Internal Medicine 05/06/21 Henry Kelly MD Pulmonary Department 175 [facility], [address] [place] [address] Physician Pulmonary Disease 09/06/17 06/22/20 documented as of this encounter
--- OUTSIDE RECORDS SUMMARY | 2024-09-05 11:00 | XMS_ITS | Encounter Summary ---
Author Organization [facility] and [facility] Address [address] [place] [address] Care Team Providers Care Policy Manager Name Role Phone Caitlyn Bowie MD Primary Care Provider +1- [phone] Encounter Details Date Type Department Care Team (Late st Contact Info) Description 07/27/2016 Scanned Document [facility] at [address] [address] Suzy Kong MD [address] [place] [phone] Social History Tobacco Use Types Packs/Day [...] Description 09/30/2024 8:00 PM EDT Procedure visit [facility] [address] [place] [address] [address] [place] [phone] 10/31/2024 1:00 PM EDT Telemedicine Cancer Center at [address] [place] [address] Ronald Mills MD [address] [place] [address], [place] [address] documented as of this encounter Visit Diagnoses Not on filedocumented in this encounter Additional Health Concerns Infection Onset Date Last Indicated Resolved Time COVID-19 03/05/2022 03/05/2022 03/15/2022 7:18 PM EDT documented as of this encounter Care Teams Policy Manager Relationship Specialty Start Date End Date Caitlyn Bowie MD [address] [facility] 1 [place] [address] PCP - General Internal Medicine 05/06/21 Henry Kelly MD Pulmonary Department [address] [place] [address], [address] [place] [address] Physician Pulmonary Disease 09/06/17 06/22/20 documented as of this encounter
--- OUTSIDE RECORDS SUMMARY | 2024-09-05 11:00 | XMS_ITS | Encounter Summary ---
Author Organization [facility] and [facility] Address [address] [place] [address] Care Team Providers Care Assembler Cards And Announcements Name Role Phone Caitlyn Bowie MD Primary Care Provider +1- [phone] Encounter Details Date Type Department Care Team (Late st Contact Info) Description 07/27/2016 Scanned Document [facility] Oncology Program at [address] [address] Suzy Kong MD [address] [place] [phone] Social History Tobacco Use Types Packs/Day [...] Description 09/30/2024 8:00 PM EDT Procedure visit [facility] [address] [place] [address] [address] [place] [phone] 10/31/2024 1:00 PM EDT Telemedicine Cancer Center at [address] [place] [address] Rnoald Mills MD [address] [place] [address], [place] [phone] documented as of this encounter Visit Diagnoses Not on filedocumented in this encounter Additional Health Concerns Infection Onset Date Last Indicated Resolved Time COVID-19 03/05/2022 03/05/2022 03/15/2022 7:18 PM EDT documented as of this encounter Care Teams Assembler Cards And Announcements Relationship Specialty Start Date End Date Caitlyn Bowie MD 34[address] [facility] 1 [place] [address] PCP - General Internal Medicine 05/06/21 Henry Kelly MD Pulmonary Department [address] [place] [address], [address] [place] [address] Physician Pulmonary Disease 09/06/17 06/22/20 documented as of this encounter
--- OUTSIDE RECORDS SUMMARY | 2024-09-05 11:00 | XMS_ITS | Encounter Summary ---
Author Organization [facility] and [facility] Address [address] [place] [address] Care Team Providers Care Field Marketer Name Role Phone Caitlyn Bowie MD Primary Care Provider +1- [phone] Encounter Details Date Type Department Care Team (Late st Contact Info) Description 06/17/2016 Scanned Document [facility] Health Information Management [address] [place] [phone] External, Provider Social History Tobacco Use Types [...] Description 09/30/2024 8:00 PM EDT Procedure visit [facility] [address] [place] [address] [address] [place] [address] 10/31/2024 1:00 PM EDT Telemedicine [facility] at [facility] [address] [facility] [address] [place], [place] [address] Ronald Mills MD [address] [facility] [address] [place] [phone] documented as of this encounter Visit Diagnoses Not on filedocumented in this encounter Additional Health Concerns Infection Onset Date Last Indicated Resolved Time COVID-19 03/05/2022 03/05/2022 03/15/2022 7:18 PM EDT documented as of this encounter Care Teams Field Marketer Relationship Specialty Start Date End Date Caitlyn Bowie MD [address] [facility] [address] 1 [place] [address] PCP - General Internal Medicine 05/06/21 Henry Kelly MD Pulmonary Department 175 [facility], [address] [place] [address] Physician Pulmonary Disease 09/06/17 06/22/20 documented as of this encounter
--- OUTSIDE RECORDS SUMMARY | 2024-09-05 11:00 | XMS_ITS | Encounter Summary ---
Author Organization [facility] and [facility] Address [address] [place] [address] Care Team Providers Care Welding Foreman Name Role Phone Caitlyn Bowie MD Primary Care Provider +1- [phone] Reason for Referral * Imaging (Routine) - Closed Specialty Diagnoses / Procedures Referred By Contac t Referred To Contact Procedures NM Lung Ventilation Perfusion ([facility]) External, Provider Referral ID Status Reason Start Date Expiration Date Visits Re quested Visits Authorized [id number] Closed 08/22/2016 08/22/2017 4 4 Encounter Details Date Type Department Care Team (Late st Contact Info) Description 08/22/2016 Scanned Document Thoracic Oncology Program at [address] [address] External, Provider Social History Tobacco Use Types [...] Description 09/30/2024 8:00 PM EDT Procedure visit [facility] [address] [place] [phone] 10/31/2024 1:00 PM EDT Telemedicine Cancer Center at [facility] [place] [address] [place], [place] [address] Ronald Mills MD [address] [place] [address] documented as of this encounter Procedures Procedure Name Priority Date/Time Associated Diagnosis Comments XRAY RESULT SCAN Routine 07/27/2016 CT RESULT SCAN Routine 07/27/2016 CT RESULT SCAN Routine 07/27/2016 CARDIAC EKG RESULT SCAN Routine 07/27/2016 LAB SCAN Routine 07/27/2016 NM LUNG VENTILATION PERFUSIO N ([facility]) Routine 07/27/2016 documented in this encounter Results * Xray Result Scan (07/27/2016) us Provider External IMG SCAN REPORTS Final Result Performing Organization Address [facility]/ZIP Co de Phone Number [facility] * CT Result Scan (07/27/2016) us Provider External IMG SCAN REPORTS Final Result Performing Organization Address [facility]/ZIP Co de Phone Number [facility] * Cardiac EKG Result Scan (07/27/2016) us Provider External CV CARDIAC REPORT (CVR) Final Result Performing Organization Address [facility]/ZIP Co de Phone Number [facility] [place], [place], [facility] * CT Result Scan (07/27/2016) us Provider External IMG SCAN REPORTS Final Result Performing Organization Address [facility]/ZIP Co de Phone Number [facility] * Lab Scan (07/27/2016) Blood specimen (specimen) us Provider External LAB BLOOD ORDERABLES Final Res ult [facility] [place], [place], [place] * NM Lung Ventilation Perfusion ([facility]) (07/27/2016) Anatomical Region Laterality Modality Chest, Lung Nuclear Medicine us Provider External IMG NM ORDERABLES Final Result documented in this encounter Visit Diagnoses Not on filedocumented in this encounter Additional Health Concerns Infection Onset Date Last Indicated Resolved Time COVID-19 03/05/2022 03/05/2022 03/15/2022 7:18 PM EDT documented as of this encounter Care Teams Welding Foreman Relationship Specialty Start Date End Date Caitlyn Bowie MD [address] [facility] 1 [place] [address] PCP - General Internal Medicine 05/06/21 Henry Kelly MD Pulmonary Department 175 [facility], [address] [place] [address] Physician Pulmonary Disease 09/06/17 06/22/20 documented as of this encounter
--- OUTSIDE RECORDS SUMMARY | 2024-09-05 11:00 | XMS_ITS | Encounter Summary ---
Author Organization [facility] and [facility] Address [address] [place] [address] Care Team Providers Care Program Aide Name Role Phone Caitlyn Bowie MD Primary Care Provider +1- [phone] Encounter Details Date Type Department Care Team (Late st Contact Info) Description 12/16/2016 Scanned Document [facility] Health Information Management [address] [place] [address] External, Provider Social History Tobacco Use Types [...] Procedure visit [facility] [address] [place] [address] [address] [place] [address] 10/31/2024 1:00 PM EDT Telemedicine Cancer Center at [facility] [address] [facility] [address] [place], [place] [address] Ronald Mills MD [address] [facility] [address] [place] [phone] documented as of this encounter Procedures Procedure [...] documented as of this encounter Care Teams Program Aide Relationship Specialty Start Date End Date Caitlyn Bowie MD 34[address] [facility] 1 [place] [address] PCP - General Internal Medicine 05/06/21 Henry Kelly MD Pulmonary Department 175 [facility], [address] [place] [address] Physician Pulmonary Disease 09/06/17 06/22/20 documented as of this encounter
== END 2024-09-05 11:04 | disposition home or self-care (01) ==
PROVIDERS: PCP Internal Medicine; Visit Provider Hospitalist
DX: J41.0 Simple chronic bronchitis (principal)
CPT/HCPCS: 94618

== ENCOUNTER → 2024-09-05 09:36 | Outpatient (BNVA) | payer MEDICARE, SELFPAY | PROVIDERS: PCP Internal Medicine; Visit Provider Hospitalist | DX: J41.0 Simple chronic bronchitis (principal) | CPT/HCPCS: 94618; 99211 ==

== ENCOUNTER 2024-09-09 01:14 | Emergency (ER) | payer MEDICARE, SELFPAY ==
--- NOTE | ~2024-09-09 | CT_ITS ---
CLINICAL HISTORY: opacity LLL, hx Lobectomy CT CHEST WITHOUT CONTRAST COMPARISON: Chest x-ray 09/09/2024. FINDINGS: Lack of IV contrast lowers the sensitivity of the examination. Postsurgical changes are noted involving the left lung. Associated volume loss is noted within the left hemithorax. Confluent area of atelectatic/fibrotic change is noted in the left perihilar region, seen on axial image 58 of series 5. Underlying lesion is difficult to exclude. Atelectatic/fibrotic change is also noted within the left lower lung, for example seen on axial image 83. Small to moderate left pleural effusion is noted. Mild pleural thickening and a small calcification are noted posteriorly on axial image 49. Mild scattered atelectatic/fibrotic changes are noted within the right lung. Cardiomegaly is present. Small pericardial effusion is noted. Calcific plaque is noted in the coronary arteries and thoracic aorta. Thoracic aorta is partially obscured by motion/streak artifact. No evidence of a thoracic aortic aneurysm. No adenopathy. Small hiatal hernia is noted. Scans of the upper abdomen demonstrate no acute abnormalities. A few left renal cysts are noted. Bone windows demonstrate no acute abnormalities. Kyphotic deformity of the thoracic spine is noted. There is mild dextrocurvature of the thoracic spine. Remote compression deformities of the T5 and T6 vertebral body levels is noted. IMPRESSION: 1. Postsurgical changes are noted in the left lung with associated volume loss. 2. Confluent atelectatic/fibrotic change in the left perihilar region. Underlying lesion is difficult to exclude. This can be followed up to confirm stability. There is also atelectatic/fibrotic change in the left lower lung. 3. Small to moderate left pleural effusion. 4. Mild scattered atelectatic/fibrotic changes in the right lung. 5. Cardiomegaly. Small pericardial effusion. 6. Additional findings are detailed above. This document has been electronically signed by: Froilan Arevalo M.D. on 09/09/2024 03:46:54
--- NOTE | ~2024-09-09 | XR_ITS ---
CLINICAL HISTORY: sob, cough hx L upper lobectomy 1 view chest x-ray Comparison: CR/SR - XR CHEST 1V - 05/29/24 16:06 EST Findings: Redemonstrated scarring in the left mid and lower lung zones. More conspicuous appearing nodular opacity in the left lower lobe. This may be further evaluated with CT. Minimal streaky right lateral atelectasis. Chronic left basilar pleural thickening. No pneumothorax. Similar prominent/enlarged cardiac silhouette. No acute fracture. IMPRESSION: Mild right atelectasis superimposed on chronic changes as described. This document has been electronically signed by: Jos Alvarado MD on 09/09/2024 02:00:05
[2024-09-09 01:20] VITALS: BP 154/71; PULSE 86; O2SAT 99
[2024-09-09 01:23] VITALS: BP 141/72; PULSE 87; RESP 16; RESP 18; TEMP 36.3; O2SAT 99; BMI 29.3
--- NOTE | 2024-09-09 01:23 | ECG_ITS ---
Test Reason : SOB Blood Pressure : */* mmHG Vent. Rate : 85 BPM Atrial Rate : 85 BPM P-R Int : 156 ms QRS Dur : 138 ms QT Int : 408 ms P-R-T Axes : 64 -55 63 degrees QTcB Int : 485 ms Normal sinus rhythm Possible Left atrial enlargement Right bundle branch block Left anterior fascicular block Bifascicular block Abnormal ECG When compared with ECG of 04-Sep-2024 14:18, No significant change was found Referred By: Michelle Pisano Electronically Signed By: INGRID TILLMAN MD
--- NOTE | 2024-09-09 01:25 | ED_ITS ---
HPI - General Adult General Chief complaint: Upper Respiratory Symptoms Stated complaint: SOB, hx COPD, regularly on 2L O2, Time Seen by Provider: 09/09/24 01:16 Source: patient and EMS Mode of arrival: EMS Limitations: no limitations History of Present Illness ED Provider: Dr. Michelle Pisano HPI narrative: Patient comes to the emergency room complaining of coughing for about 1 week. Patient states that earlier today she was a bit sweaty. Patient states she became concerned because she never sweats in the side to come to the hospital to get checked out. Patient known to have COPD and uses 2 L at baseline, history of CHF and pulmonary hypertension. Patient denies any fever or chills. Denies any abdominal pain. Denies chest pain. Patient states that she is on her last day of an amoxicillin course that she was taking for a dental infection Related Data Home Medications ?Medication ?Instructions ?Recorded ?Confirmed levothyroxine 25 mcg tablet 25 mcg PO MOTUWETHFR@0600 06/14/22 09/05/24 (Synthroid) CPAP (CPAP Machine/Device) 06/30/22 09/05/24 Oxygen Home Use 06/30/22 09/05/24 nebulizers 06/30/22 09/05/24 epinephrine 0.3 mg/0.3 mL 0.3 mg IM USEASDIRECTD PRN 07/14/22 09/05/24 injection, auto-injector Allergic Reaction levothyroxine 25 mcg tablet 50 mcg PO SUSA@0600 01/05/24 09/05/24 (Synthroid) warfarin 2.5 mg tablet (Jantoven) 1.5 mg PO DAILY@1800 01/05/24 09/05/24 docusate sodium 100 mg capsule 100 mg PO DAILY 01/14/24 09/05/24 ferrous sulfate 325 mg (65 mg 325 mg PO DAILY 01/14/24 09/05/24 iron) tablet acetaminophen 325 mg tablet 650 mg PO Q6H PRN Pain/Fever 02/01/24 09/05/24 biotin 1 mg tablet 3 mg PO DAILY 02/01/24 09/05/24 bisacodyl 10 mg rectal suppository [address] DAILY PRN No BM x3 days 02/01/24 09/05/24 MoM not effective fluticasone propionate 50 2 spray intranasal DAILY 02/01/24 09/05/24 mcg/actuation nasal spray,suspension guaifenesin 400 mg tablet 400 mg PO TID 02/01/24 09/05/24 magnesium hydroxide 400 mg/5 mL 30 ml PO NEEDED PRN 02/01/24 09/05/24 oral suspension (Milk of Magnesia) Constipation, No BM in 3 days ondansetron 4 mg disintegrating 4 mg PO Q4H PRN Nausea/Vomiting 02/01/24 09/05/24 tablet sodium phosphates 19 gram-[address] NEEDED PRN No result 02/01/24 09/05/24 gram/118 mL enema (Enema) from MoM and Bisacodyl Supp Previous Rx's ?Medication ?Instructions ?Recorded chlorhexidine gluconate 0.12 % 15 ml buccal BID 14 days #420 mL 01/02/24 mouthwash cefuroxime axetil 500 mg tablet 500 mg PO BID #8 tabs 02/04/24 diazepam 5 mg tablet 5 mg PO BID PRN anxiety #14 tabs 02/04/24 oxycodone 5 mg tablet 5 mg PO Q8H PRN pain (scale score 02/04/24 7-10) #10 tabs simethicone 80 mg chewable tablet 80 mg PO QIDWMHS #20 tabs 02/04/24 (Gas Relief (simethicone)) Advair HFA 230 mcg-21 2 puff inhalation BID 90 days #36 03/13/24 mcg/actuation aerosol inhaler grams (fluticasone propion-salmeterol) acetylcysteine 100 mg/mL (10 %) 2 ml inhalation BID 30 days #120 mL 03/21/24 solution codeine 10 mg-guaifenesin 100 mg/5 10 ml PO Q4-6H PRN cough #473 mL 03/23/24 mL oral liquid albuterol sulfate 90 mcg/actuation 2 inh inhalation Q6H PRN shortness 04/01/24 aerosol inhaler of breath or wheezing 90 days #3 ea levalbuterol tartrate 45 2 puff inhalation Q6H PRN 04/01/24 mcg/actuation aerosol inhaler shortness of breath or wheezing 90 (Xopenex HFA) days #45 grams furosemide 40 mg tablet 80 mg (2 x 40 mg) PO BID #360 tabs 05/01/24 metoprolol succinate 50 mg 50 mg PO BID #180 tabs 05/10/24 tablet,extended release 24 hr (Toprol XL) sodium di- and 1 tab PO BID 1 day #2 tabs 05/10/24 monophosphate-potassium phos monobasic 250 mg tablet (M-Ypiz-Mozmgbz) levocetirizine 5 mg tablet 5 mg PO DAILY 90 days #90 tabs 05/23/24 prednisone 2.5 mg tablet 2.5 mg PO DAILY 90 days #90 tabs 07/01/24 trazodone 50 mg tablet 100 mg (2 x 50 mg) PO BEDTIME #180 07/01/24 tabs meclizine 25 mg tablet 25 mg PO Q8H PRN dizziness 10 days 07/22/24 #30 tabs rosuvastatin 10 mg tablet 10 mg PO ONCE #90 tabs 08/02/24 potassium chloride 20 mEq 40 meq (2 x 20 mEq) PO DAILY #60 08/12/24 tablet,extended release tabs montelukast 10 mg tablet 10 mg PO DAILY #90 tabs 08/24/24 Allergies Allergy/AdvReac Type Severity Reaction Status Date / Time morphine Allergy Severe Itching Verified 09/09/24 01:34 avocado [AVOCADO] Allergy Mild ITCHY Verified 09/09/24 01:34 THROAT, RASH azithromycin [AZITHROMYCIN] Allergy Mild ITCHY Verified 09/09/24 01:34 THROAT, RASH barium iodide [BARIUM IODIDE] Allergy Mild ITCHY Verified 09/09/24 01:34 THROAT, RASH barium sulfate Allergy Mild Itch Verified 09/09/24 01:34 bee pollen [BEE STINGS] Allergy Mild ITCHY Verified 09/09/24 01:34 THROAT, RASH ciprofloxacin [From CIPRO] Allergy Mild ITCHY Verified 09/09/24 01:34 THROAT, RASH clarithromycin [From BIAXIN] Allergy Mild ITCHY Verified 09/09/24 01:34 THROAT, RASH diatrizoate meglumine Allergy Mild ITCHY Verified 09/09/24 01:34 [From GASTROGRAFIN] THROAT, RASH diatrizoate sodium Allergy Mild ITCHY Verified 09/09/24 01:34 [From GASTROGRAFIN] THROAT, RASH diclofenac [From VOLTAREN] Allergy Mild ITCHY Verified 09/09/24 01:34 THROAT, RASH erythromycin base Allergy Mild ITCHY Verified 09/09/24 01:34 [ERYTHROMYCIN BASE] THROAT, RASH gentamicin [GENTAMICIN] Allergy Mild ITCHY Verified 09/09/24 01:34 THROAT, RASH Iodinated Contrast Media Allergy Mild ITCHY Verified 09/09/24 01:34 [IVP DYE] THROAT, RASH levofloxacin [From LEVAQUIN] Allergy Mild ITCHY Verified 09/09/24 01:34 THROAT, RASH metronidazole [From FLAGYL] Allergy Mild ITCHY Verified 09/09/24 01:34 THROAT, RASH moxifloxacin [From AVELOX] Allergy Mild ITCHY Verified 09/09/24 01:34 THROAT, RASH Penicillins [PENICILLINS] Allergy Mild ITCHY Verified 09/09/24 01:34 THROAT, RASH shrimp [SHRIMP] Allergy Mild ITCHY Verified 09/09/24 01:34 THROAT, RASH Sulfa (Sulfonamide Allergy Mild ITCHY Verified 09/09/24 01:34 Antibiotics) THROAT, [SULFA (SULFONAMIDE RASH ANTIBIOTICS)] vancomycin [VANCOMYCIN] Allergy Mild ITCHY Verified 09/09/24 01:34 THROAT, RASH clindamycin AdvReac Intermediate Unknown Verified 09/09/24 01:34 Review of Systems 2 Review of Systems: Constitutional : No Weight loss, No Fever, No Chills, No Night Sweats, No Fatigue, No Malaise ENT/Mouth : No Hearing loss, No Ear Pain, No Nasal Congestion, No Sinus Pain, No Hoarseness, No sore throat, No Rhinorrhea, No Swallowing Difficulty Eyes: No Eye Pain, No Swelling, No Redness, No Foreign Body, No Discharge, No Vision Changes Cardiovascular : No Chest Pain, No SOB, No Dyspnea on Exertion, No Orthopnea, No Edema, No Palpitations Respiratory : complaining of coughing more than usual, nonproductive, No Sputum, patient states that she has been wheezing more than usual,, No Smoke Exposure, No Dyspnea Gastrointestinal : No Nausea, No Vomiting, No Diarrhea, No Constipation, No abdominal Pain, No Hematochezia, No Melena Genitourinary : no irregular bleeding, No Dysuria, No Urinary Frequency, No Hematuria, No Urinary Incontinence, No Urgency, No Flank Pain, No Urinary Flow Changes, No Hesitancy Musculoskeletal : No joint pain, No Myalgias, No Joint Swelling Skin : No Skin Lesions, No rash Neuro : No Weakness, No Numbness, No Paresthesias, No Loss of Consciousness, No Dizziness, No Headache Psych : No Anxiety/Panic, No Depression, No SI/HI/AH/VH, No Social Issues, Heme/Lymph: No Bruising, No Bleeding,No Lymphadenopathy Endocrine : No Polyuria, No Polydipsia, No Temperature Intolerance [facility] Past Medical History Medical History Chronic hypercapnic respiratory failure KANDY treated with BiPAP COPD (chronic obstructive pulmonary disease) Open wound Warfarin anticoagulation Complex sleep apnea syndrome Leg pain Anemia Tachycardia DVT (deep venous thrombosis) Compression fracture of body of thoracic vertebra ASD (atrial septal defect) Pleuritic chest pain History of COVID-19 Chronic anticoagulation Hypothyroidism GERD (gastroesophageal reflux disease) Hyperlipidemia Hypertension Factor 5 Leiden mutation, heterozygous History of non-ST elevation myocardial infarction (NSTEMI) Hypoxia Anxiety PTSD (post-traumatic stress disorder) Hemoptysis Dyspnea Tracheobronchitis CLARA positive Diverticulitis Allergic bronchitis (HFpEF) heart failure with preserved ejection fraction Subarachnoid bleed Insomnia Anti-phospholipid antibody syndrome Hypogammaglobulinemia Chronic respiratory failure Arterial insufficiency of lower extremity Complex regional pain syndrome i of right lower limb Post herpetic neuralgia Pulmonary hypertension Pericardial effusion Pulmonary emboli Pleural effusion Radiation fibrosis of lung Pneumonitis Pulmonary nodules Lung cancer Surgical History History of colonoscopy History of lung surgery History of tonsillectomy History of hysterectomy S/P mitral valve clip implantation History of cardiac cath Family History Family History Sister No problems noted. Mother Cardiovascular disease Daughter Tachycardia Other KANDY (obstructive sleep apnea) Social History Social History Household Members: Other Housing: Prison Do you presently have visiting nurse or other home services: Yes (at home had CLIENT DELIVERY SPECIALIST that came to visit her) Unable to assess alcohol history related to: Unknown Alcohol intake: former Comment: stand by assist with ambulation Patient Tobacco Use Status: Never used Tobacco Smoked in Last 30 Days: No Second Hand Smoke Exposure: No Use of substances other than those prescribed or required for medical reasons: No Advance Directives: Yes Advance Directives on File: Yes Advance Directives Date on File: 06/15/22 service: No Current occupational status: retired Physical Exam ED Vital Signs: Vital Signs - 24 hr 09/09/24 01:23 09/09/24 01:23 09/09/24 01:23 Temperature 97.4 F 97.4 F Pulse Rate 87 87 Respiratory Rate 16 18 Blood Pressure 141/72 H 141/72 H Pulse Oximetry 99 99 99 Oxygen Delivery Method Nasal Cannula Nasal Cannula Nasal Cannula Oxygen Flow Rate 2 BMI result Body Mass Index 29.3 Const Other: Appearance: Alert. Oriented X3. No acute distress. Eyes: Pupils equal, round and reactive to light. ENT: Pharynx normal. Neck: Normal inspection. Neck supple. No lymph nodes noted. No crepitus CVS: Normal heart rate and rhythm. Pulses normal. Normal S1 and S2 Respiratory: No respiratory distress. very occasional wheezing, good air movement, no rales or crackles Abdomen: Soft and nontender. No rigidity. No distention. Skin: Skin warm and dry. Normal skin color. Normal skin turgor. Extremities: No lower extremity edema. No Lacerations. No Rash Neuro: Oriented X 3. No motor deficit. No sensory deficit. Moving all extremities. No slurred speech. CN 2 through 12 grossly intact Psych: calm, cooperative, normal affect Course Course Course Narrative: labs and imaging pending oxygen saturation in the mid 90s on her baseline 2 L. otherwise patient well- appearing Medical Decision Making Medical Decision Making [facility] Narrative: Patient's white blood cell count 13.3, lower than previous visits. No significant abnormal doing chemistry. Patient's serology negative for influenza COVID and RSV CT scan shows postsurgical changes in the left lung with associated lung volume loss. Fibrotic change in the left perihilar region, underlying lesion is difficult to exclude. CT scan could not be done with contrast due to patient's allergies. Patient instructed to follow-up with his PCP and square dance caller. Small to moderate left pleural effusion. Patient aware that she has a chronic effusion. Patient's oxygen saturation remains in the high 90s at baseline. patient's cough likely secondary to viral illness versus small pleural effusion. Patient has no changes in O2 saturation. Patient otherwise feeling well. Patient instructed to continue taking her antibiotic for the tooth infection. Differential Diagnosis Differential Diagnoses: The differential diagnosis associated with the presentation includes ( Bronchitis, pleural effusion, pneumonia) Lab Data [facility] Lab Attestation statement: I reviewed the patient's lab results. 09/09/24 01:53 09/09/24 01:53 Labs: Lab Results 09/09/24 09/09/24 Range/Units 01:53 02:09 WBC 13.3 H (4.8-10.8) X10*3/uL RBC 3.62 L (4.20-5.50) X10*6/uL Hgb 12.1 (12.0-16.0) g/dl Hct 36.1 L (37.0-47.0) % MCV 99.7 H (80.0-98.0) fL MCH 33.4 H (27.0-33.0) pg MCHC 33.5 (31.0-35.0) g/dl RDW 13.9 (11.0-16.0) % Plt Count 231 (160-400) X10*3/uL MPV 10.9 (9.4-12.3) fL Immature Gran % (Auto) 1.3 H (0.0-0.4) % Neut % (Auto) 81.0 H (45-73) % Lymph % (Auto) 8.0 L (20-40) % Newberry % (Auto) 7.9 (2-11) % Eos % (Auto) 1.1 (0-4) % Baso % (Auto) 0.7 (0-2) % Lymph # (Auto) 1.1 L (1.2-4.9) X10*3/uL Newberry # (Auto) 1.1 (0.1-1.2) X10*3/uL Eos # (Auto) 0.1 (0.0-0.4) X10*3/uL Baso # (Auto) 0.1 (0.0-0.2) X10*3/uL Abs Immat Gran (auto) 0.17 H (0.00-0.03) X10*3/uL Absolute Neuts (auto) 10.8 H (2.0-8.3) x10*3/uL Absolute Nucleated RBC 0.000 (0.0-0.012) X10*3/uL Nucleated RBC % (auto) 0.0 (0.0-0.2) /100WBC PT 16.8 H (10.9-12.4) SEC INR 1.4 H (0.9-1.1) VBG pH 7.83 H* (7.32-7.43) VBG pCO2 24 mmHg VBG pO2 48 mmHg VBG HCO3 41 H (22-26) mmol/L VBG O2 Saturation 91.0 % VBG Base Excess 23.4 mmol/L Sodium 139 (135-145) mmol/L Potassium 3.8 (3.3-5.1) mmol/L Chloride 97 (96-108) mmol/L Carbon Dioxide 31 H (22-29) mmol/L Anion Gap 15 (12-20) BUN 23 H (9-16) mg/dL Creatinine 0.81 (0.5-1.4) mg/dL Estim Creat Clear Calc 50.7 Estimated GFR > 60 Random Glucose 112 (60-115) mg/dL Lactic Acid 1.1 (0.5-2.0) mmol/L Calcium 10.9 H (8.4-10.2) mg/dL Total Bilirubin 0.5 (0.0-1.0) mg/dL Direct Bilirubin 0.3 (0.0-0.5) mg/dL AST 34 H (5-31) U/L ALT 27 (0-31) U/L Alkaline Phosphatase 84 (39-117) U/L Troponin I High Sens 15.7 (<3.5-17.0) ng/L B-Natriuretic Peptide 843 H (<100) pg/mL Total Protein 7.7 (6.5-8.0) g/dL Albumin 3.8 (3.5-5.0) g/dL Influenza Type A (PCR) NEGATIVE (Negative) Influenza Type B (PCR) NEGATIVE (Negative) RSV RNA Qual (PCR) NEGATIVE (Negative) SARS-CoV-2 RNA (RT-PCR) NEGATIVE (Negative) Independent Interpretation I performed an independent interpretation of an: CT Scan Radiology Impression Discussion of test interpretation with radiology: I have reviewed the radiologist's reading. Radiologist Impression: FINDINGS: Lack of IV contrast lowers the sensitivity of the examination. Postsurgical changes are noted involving the left lung. Associated volume loss is noted within the left hemithorax. Confluent area of atelectatic/fibrotic change is noted in the left perihilar region, seen on axial image 58 of series 5. Underlying lesion is difficult to exclude. Atelectatic/fibrotic change is also noted within the left lower lung, for example seen on axial image 83. Small to moderate left pleural effusion is noted. Mild pleural thickening and a small calcification are noted posteriorly on axial image 49. Mild scattered atelectatic/fibrotic changes are noted within the right lung. Cardiomegaly is present. Small pericardial effusion is noted. Calcific plaque is noted in the coronary arteries and thoracic aorta. Thoracic aorta is partially obscured by motion/streak artifact. No evidence of a thoracic aortic aneurysm. No adenopathy. Small hiatal hernia is noted. Scans of the upper abdomen demonstrate no acute abnormalities. A few left renal cysts are noted. Bone windows demonstrate no acute abnormalities. Kyphotic deformity of the thoracic spine is noted. There is mild dextrocurvature of the thoracic spine. Remote compression deformities of the T5 and T6 vertebral body levels is noted. IMPRESSION: 1. Postsurgical changes are noted in the left lung with associated volume loss. 2. Confluent atelectatic/fibrotic change in the left perihilar region. Underlying lesion is difficult to exclude. This can be followed up to confirm stability. There is also atelectatic/fibrotic change in the left lower lung. 3. Small to moderate left pleural effusion. 4. Mild scattered atelectatic/fibrotic changes in the right lung. 5. Cardiomegaly. Small pericardial effusion. 6. Additional findings are detailed above. Critical Care Time Critical Care Time Critical Care Time: Yes Total Critical Care Time: 45 Attestation: I have personally provided critical care time. Time includes review of lab data, radiology results, discussion with consultants, and monitoring for potential decompensation. Intervention performed as documented. Discharge Plan Discharge Clinical Impression: Bronchitis Patient Disposition: Home, Self-Care Instructions: Acute Bronchitis (ED) Additional Instructions: there was some chronic changes in your CT scan. He will need CT scans for follow-up. Please make sure that you follow-up with your square dance caller and had him know that you Had a CT scan done. Please follow-up with your primary care physician tomorrow. If you have any worsening or new symptoms, please return to the emergency room or call 911 Prescriptions: No Action chlorhexidine gluconate 0.12 % mouthwash 15 ml buccal BID 14 Days Qty: 420 1RF Advair HFA 230-21 mcg/actuation HFA aerosol inhaler 2 puff inhalation BID 90 Days Qty: 36 4RF codeine-guaifenesin 10-100 mg/5 mL liquid 10 ml PO Q4-6H PRN (Reason: cough) Qty: 473 0RF levalbuterol tartrate [Xopenex HFA] 45 mcg/actuation HFA aerosol inhaler 2 puff inhalation Q6H PRN (Reason: shortness of breath or wheezing) 90 Days Qty: 45 3RF albuterol sulfate 90 mcg/actuation HFA aerosol inhaler 2 inh inhalation Q6H PRN (Reason: shortness of breath or wheezing) 90 Days Qty: 3 3RF furosemide 40 mg tablet 80 mg PO BID Qty: 360 3RF B-Kxeh-Rcaqjpt 250 mg tablet 1 tab PO BID 1 Days Qty: 2 0RF metoprolol succinate [Toprol XL] 50 mg tablet extended release 24 hr 50 mg PO BID Qty: 180 3RF levocetirizine 5 mg tablet 5 mg PO DAILY 90 Days Qty: 90 3RF prednisone 2.5 mg tablet 2.5 mg PO DAILY 90 Days Qty: 90 3RF Rx Instructions: On odd days trazodone 50 mg tablet 100 mg PO BEDTIME Qty: 180 3RF meclizine 25 mg tablet 25 mg PO Q8H PRN (Reason: dizziness) 10 Days Qty: 30 0RF rosuvastatin 10 mg tablet 10 mg PO ONCE Qty: 90 2RF potassium chloride 20 mEq tablet extended release 40 meq PO DAILY Qty: 60 3RF montelukast 10 mg tablet 10 mg PO DAILY Qty: 90 3RF levothyroxine [Synthroid] 25 mcg tablet 25 mcg PO MOTUWETHFR@0600 warfarin [Jantoven] 2.5 mg Tablet 1.5 mg PO DAILY@1800 Patient Comments: Dose ranges based on INR goal of 1.5-2. levothyroxine [Synthroid] 25 mcg Tablet 50 mcg PO SUSA@0600 ferrous sulfate 325 mg (65 mg iron) Tablet 325 mg PO DAILY docusate sodium 100 mg Capsule 100 mg PO DAILY acetaminophen 325 mg Tablet 650 mg PO Q6H PRN (Reason: Pain/Fever) biotin 1 mg Tablet 3 mg PO DAILY magnesium hydroxide [Milk of Magnesia] 400 mg/5 mL Suspension 30 ml PO NEEDED PRN (Reason: Constipation, No BM in 3 days ) bisacodyl 10 mg Suppository [address] DAILY PRN (Reason: No BM x3 days MoM not effective) Enema 19-7 gram/118 mL Enema [address] NEEDED PRN (Reason: No result from MoM and Bisacodyl Supp) ondansetron 4 mg Tablet,Disintegrating 4 mg PO Q4H PRN (Reason: Nausea/Vomiting) fluticasone propionate 50 mcg/actuation spray,suspension 2 spray intranasal DAILY guaifenesin 400 mg Tablet 400 mg PO TID simethicone [Gas Relief (simethicone)] 80 mg Tablet,Chewable 80 mg PO QIDWMHS Qty: 20 0RF cefuroxime axetil 500 mg tablet 500 mg PO BID Qty: 8 0RF oxycodone 5 mg tablet 5 mg PO Q8H PRN (Reason: pain (scale score 7-10)) Qty: 10 0RF Rx Instructions: Partial Fill upon patient request. diazepam 5 mg tablet 5 mg PO BID PRN (Reason: anxiety) Qty: 14 0RF (DME) nebulizers Misc See Rx Instructions .Route Rx Instructions: As directed (DME) CPAP Machine/Device Device See Rx Instructions .Route Rx Instructions: As directed (DME) Oxygen Home Use Kit See Rx Instructions .Route Rx Instructions: As directed epinephrine 0.3 mg/0.3 mL auto-injector 0.3 mg IM USEASDIRECTD PRN (Reason: Allergic Reaction) acetylcysteine 100 mg/mL (10 %) solution 2 ml inhalation BID 30 Days Qty: 120 5RF Print Language: Wolof
--- OUTSIDE RECORDS SUMMARY | 2024-09-09 01:39 | XMS_ITS | Encounter Summary ---
Author Organization [facility] Address [address] [place] [address] Care Team Providers Care Associate Data Scientist Name Role Phone Victorino Martin MD Primary Care Provider UnavailSharon Kimbrough Primary Care Provider Unava ilable Brennan Burnett MD Primary Care Provider Unavailab Hayden Montes MD Unavailable [phone] Pallavi Flood NP Unavailable [phone] Caitlyn Bowie MD Primary Care Provider Unava ilable Reason for Visit * Reason Onset Date Comments Call From Md Office 06/27/2018 Encounter Details Date Type Department Care Team Description 06/27/2018 Telephone Pulmonology - [address] [place] [address] Henry Kelly MD Call From [...] Szymanski calling to speak to Dr. Kelly [phone] documented in this encounter Plan of Treatment Not on file documented as of this encounter Visit Diagnoses Not on filedocumented in this encounter Care Teams Associate Data Scientist Relationship Specialty Start Date End Date Victorino Martin MD PCP - General Internal Medicine 12/21/17 08/01/18 Sharon Vides PCP - General Internal Medicine 08/02/18 05/26/20 Brennan Burnett MD PCP - General Internal Medicine 05/27/20 12/07/21 Caitlyn Bowie MD [address] [place] [address] PCP - General Internal Medicine 12/08/21 Hayden Shah MD [address] [place], [place] [id number] Specialist Cardiovascular Disease 09/01/20 Pallavi Flood NP [address] [place], [place] [address] Cardiology 09/01/20 documented as of this encounter
--- OUTSIDE RECORDS SUMMARY | 2024-09-09 01:39 | XMS_ITS | Encounter Summary ---
Author Organization [facility] Address [address] [place] [address] Care Team Providers Care Billet Bed Operator Name Role Phone Caitlyn Bowie MD Primary Care Provider [phone] Encounter Details Date Type Department Care Team (Late st Contact Info) Description 05/19/2020 Scanned Document Cancer [facility] at [address] [address] External, Provider Social History Tobacco Use Types [...] Team (Late st Contact Info) Description 09/30/2024 8:30 PM EDT Procedure visit [facility] [address] [place] [address] [address] [place] [id number] 10/31/2024 1:00 PM EDT Telemedicine Cancer Center at [address] [place] [address] Ronald Mills MD [address] [phone] documented as of this encounter [...] as of this encounter Care Teams Billet Bed Operator Relationship Specialty Start Date End Date Caitlyn Bowie MD [address] [facility] [address] [place] [address] PCP - General Internal Medicine 05/06/21 Henry Kelly MD Pulmonary Department [address] [facility] [place] [address] Physician Pulmonary Disease 09/06/17 06/22/20 documented as of this encounter
--- OUTSIDE RECORDS SUMMARY | 2024-09-09 01:39 | XMS_ITS | Encounter Summary ---
Author Organization [facility] Address [address] [place] [id number] Care Team Providers Care Director Of Sports Medicine Name Role Phone Caitlyn Bowie MD Primary Care Provider [phone] Encounter Details Date Type Department Care Team (Late st Contact Info) Description 09/17/2020 Scanned Document [facility] Information Management [address] [place] [id number] External, Provider Social History Tobacco Use Types [...] Description 09/30/2024 8:30 PM EDT Procedure visit [facility] [address] [place] [address] [address] [place] [phone] 10/31/2024 1:00 PM EDT Telemedicine Cancer Center at [facility] [address] [facility] [address] [place] [address] Ronald Mills MD [address] [facility] [address] [place] [address] documented as of this encounter [...] of this encounter Care Teams Director Of Sports Medicine Relationship Specialty Start Date End Date Caitlyn Bowie MD [address] [phone] PCP - General Internal Medicine 05/06/21 documented as of this encounter
--- OUTSIDE RECORDS SUMMARY | 2024-09-09 01:39 | XMS_ITS | Encounter Summary ---
Author Organization [facility] and [facility] Address [address] [place] [address] Care Team Providers Care Door Technician Name Role Phone Caitlyn Bowie MD Primary Care Provider +1- [phone] Encounter Details Date Type Department Care Team (Late st Contact Info) Description 09/16/2020 Scanned Document [facility] Health Information Management [address] [place] [address] External, Provider Social History Tobacco Use Types [...] Description 09/30/2024 8:30 PM EDT Procedure visit [facility] [address] [place] [address] [address] [place] [address] 10/31/2024 1:00 PM EDT Telemedicine [facility] at [facility] 240 [facility] [address] [place] [address] Ronald Mills MD 240 [facility] A1 [place] [address] documented as of this encounter [...] documented as of this encounter Care Teams Door Technician Relationship Specialty Start Date End Date Caitlyn Bowie MD [address] [address] PCP - General Internal Medicine 05/06/21 documented as of this encounter
--- OUTSIDE RECORDS SUMMARY | 2024-09-09 01:39 | XMS_ITS | Encounter Summary ---
Author Organization [facility] and [facility] Address [address] [place] [address] Care Team Providers Care Merchandiser Name Role Phone Caitlyn Bowie MD Primary Care Provider +1- [phone] Encounter Details Date Type Department Care Team (Late st Contact Info) Description 09/15/2020 Scanned Document Cancer Center at [address] [address] External, Provider Social History Tobacco Use Types [...] Description 09/30/2024 8:30 PM EDT Procedure visit [facility] [address] [place] [address] [place] [address] 10/31/2024 1:00 PM EDT Telemedicine Cancer Center at [address] [place], [place] [address] Ronald Mills MD [address] [address] documented as of this [...] documented as of this encounter Care Teams Merchandiser Relationship Specialty Start Date End Date Caitlyn Bowie MD [address] [address] PCP - General Internal Medicine 05/06/21 documented as of this encounter
--- OUTSIDE RECORDS SUMMARY | 2024-09-09 01:39 | XMS_ITS | Encounter Summary ---
Author Organization [facility] and [facility] Address [address] [place] [address] Care Team Providers Care Aix System Administrator Name Role Phone Caitlyn Bowie MD Primary Care Provider +1- [phone] Encounter Details Date Type Department Care Team (Late st Contact Info) Description 05/14/2020 Documentation Hematology Program at [address] [address] Taya Nuno RN Social History Tobacco Use [...] Description 09/30/2024 8:30 PM EDT Procedure visit [facility] [address] [place] [address] [address] [place] [address] 10/31/2024 1:00 PM EDT Telemedicine Cancer Center at [address] [place] [address] Ronald Mills MD [address] [place] [address] documented as of this encounter Visit Diagnoses Not on filedocumented in this encounter Additional Health Concerns Infection Onset Date Last Indicated Resolved Time COVID-19 03/05/2022 03/05/2022 03/15/2022 7:18 PM EDT Assessment Noted Time PHQ-9 Depression Total Score: 2 11/07/19 19 2:06 PM EDT documented as of this encounter Care Teams Aix System Administrator Relationship Specialty Start Date End Date Caitlyn Bowie MD 3400 [facility] 1 [place] [address] PCP - General Internal Medicine 05/06/21 Henry Kelly MD Pulmonary Department [address] [place] [address], [address] [place] [address] Physician Pulmonary Disease 09/06/17 06/22/20 documented as of this encounter
--- OUTSIDE RECORDS SUMMARY | 2024-09-09 01:39 | XMS_ITS | Encounter Summary ---
Author Organization [facility] Address [address] [place] [address] Care Team Providers Care Site Inspector Name Role Phone Caitlyn Bowie MD Primary Care Provider +1- [phone] Encounter Details Date Type Department Care Team (Late st Contact Info) Description 09/15/2020 Scanned Document [facility] Health Information Management [address] [place] [address] External, Provider Social History Tobacco Use Types [...] Description 09/30/2024 8:30 PM EDT Procedure visit [facility] [address] [place] [address] [address] [place] [address] 10/31/2024 1:00 PM EDT Telemedicine Cancer [facility] at [facility] 240 [facility] [address] [place] [address] Ronald Mills MD 240 [facility] A1 [place] [address] documented as of this encounter [...] documented as of this encounter Care Teams Site Inspector Relationship Specialty Start Date End Date Caitlyn Bowie MD [address] [address] PCP - General Internal Medicine 05/06/21 documented as of this encounter
--- OUTSIDE RECORDS SUMMARY | 2024-09-09 01:39 | XMS_ITS | Encounter Summary ---
Author Organization [facility] and [facility] Address [address] [place] [address] Care Team Providers Care Classification Officer Name Role Phone Caitlyn Bowie MD Primary Care Provider +1- [phone] Encounter Details Date Type Department Care Team (Late st Contact Info) Description 09/16/2020 Scanned Document [facility] Health Information Management [address] [place] [address] External, Provider Social History Tobacco Use Types [...] Description 09/30/2024 8:30 PM EDT Procedure visit [facility] [address] [place] [address] [address] [place] [address] 10/31/2024 1:00 PM EDT Telemedicine Cancer Center at [facility] 240 [facility] [address] [place] [address] Ronald Mills MD 240 [facility] A1 [place] [address] documented as of this encounter [...] documented as of this encounter Care Teams Classification Officer Relationship Specialty Start Date End Date Caitlyn Bowie MD [address] [address] PCP - General Internal Medicine 05/06/21 documented as of this encounter
--- OUTSIDE RECORDS SUMMARY | 2024-09-09 01:39 | XMS_ITS | Encounter Summary ---
Author Organization [facility] and [facility] Address [address] [place] [address] Care Team Providers Care Bank Sales And Service Manager Name Role Phone Caitlyn Bowie MD Primary Care Provider +1- [phone] Encounter Details Date Type Department Care Team (Late st Contact Info) Description 02/20/2017 Scanned Document [facility] Health Information Management [address] [place] [address] External, Provider Social History Tobacco Use Types [...] Description 09/30/2024 8:30 PM EDT Procedure visit [facility] [address] [place] [address] [address] [place] [address] 10/31/2024 1:00 PM EDT [facility] 240 [facility] [address] [place], [place] [address] Ronald Mills MD 240 [facility] A1 [place] [address] documented as of this encounter Procedures Procedure [...] documented as of this encounter Care Teams Bank Sales And Service Manager Relationship Specialty Start Date End Date Caitlyn Bowie MD 3400 [facility] 1 [place] [address] PCP - General Internal Medicine 05/06/21 Henry Kelly MD Pulmonary Department 175 [facility], [address] [place] [address] Physician Pulmonary Disease 09/06/17 06/22/20 documented as of this encounter
--- OUTSIDE RECORDS SUMMARY | 2024-09-09 01:39 | XMS_ITS | Patient Health Record ---
Author Organization [facility] Address [address] [place] [address] Care Team Providers Care Product Applications Engineer Name Role Phone Shruti Bowieberly Primary Care Provider Cristian Fountain Unavailable [phone] ALLERGIES Allergen (clinical drug ingredient) Drug/Non Drug Allergy documented on EMR Reaction Allergy Type Onset Date Status ipitromium bromide (uncoded) Unknown Allergy Active some [...] moxifloxacin Avelox Unknown Drug Allergy Acti ve REASON FOR [...] Notes Problem Diverticulitis (K57.92) Active confirmed Diverticulitis (684226995) Problem Irritable bowel syndrome with constipation (K58.9) Active confirmed Irritable bowel syndrome characterized by constipation (732511180) Problem GERD (gastroesophageal reflux disease) (K21.9) Active confirmed Gastroesophagea l reflux disease (091592551) PLAN OF TREATMENT No Information Insurance Providers Payer Name Payer Address Payer Phone Subscriber Number Group Number Insured Name Patient Relationship to Insured Coverage Start Date Coverage End Date MEDICARE OF [place] [address] [place] [address] [id number] SHIRLEY CINDA Self - patient is the insured [employer] ATTN CLAIMS [address] [place] [address] [id number] DANIEL WATSONE Self - patient is the insured MEDICAL (GENERAL) HISTORY Medical History History ICD Code MA-04/2021-sees Dr. Cadet--describes a negative cardiac cath Lung [...] 2020--no surgery IBS-constipation--uses laxatives prn--se es Dr. 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 Hogan at [facility]-has had EGD's with Dr. Gomes Pneumomias Hypothyroidism Surgical History Surgery Date(Month/Year) Tonsils and adenoids BOLA Lung cancer-[facility], XRT, Chemo 2008
--- OUTSIDE RECORDS SUMMARY | 2024-09-09 01:39 | XMS_ITS | Encounter Summary ---
Author Organization [facility] Address [address] [place] [address] Care Team Providers Care Oss Architect Name Role Phone Caitlyn Bowie MD Primary Care Provider +1- [phone] Encounter Details Date Type Department Care Team (Late st Contact Info) Description 02/20/2017 Scanned Document [facility] Health Information Management [address] [place] [address] External, Provider Social History Tobacco Use Types [...] Description 09/30/2024 8:30 PM EDT Procedure visit [facility] [address] [place] [address] [address] [place] [address] 10/31/2024 1:00 PM EDT Telemedicine Cancer Center at [facility] 240 [facility] [address] [place], [place] [address] Ronald Mills MD 240 [facility] A1 [place] [address] documented as of this encounter Procedures Procedure [...] documented as of this encounter Care Teams Oss Architect Relationship Specialty Start Date End Date Caitlyn Bowie MD 3400 [facility] 1 [place] [address] PCP - General Internal Medicine 05/06/21 Henry Kelly MD Pulmonary Department 175 [facility], [address] [place] [address] Physician Pulmonary Disease 09/06/17 06/22/20 documented as of this encounter
--- OUTSIDE RECORDS SUMMARY | 2024-09-09 01:39 | XMS_ITS | Encounter Summary ---
Author Organization [facility] Address [address] [place] [address] Care Team Providers Care Bearing Press Machine Operator Name Role Phone Caitlyn Bowie MD Primary Care Provider +1- [phone] Encounter Details Date Type Department Care Team (Late st Contact Info) Description 09/15/2020 Scanned Document INTERFACE DEFAULT [address] [place] [address] System, Provider Not In Social History Tobacco [...] Description 09/30/2024 8:30 PM EDT Procedure visit [facility] [address] [place] [address] [address] [place] [address] 10/31/2024 1:00 PM EDT Telemedicine [facility] Center at [facility] 240 [facility] [address] [place] [address] Ronald Mills MD 240 [facility] A1 [place] [address] documented as of this encounter Visit Diagnoses Not on filedocumented in this encounter Additional Health Concerns Infection Onset Date Last Indicated Resolved Time COVID-19 03/05/2022 03/05/2022 03/15/2022 7:18 PM EDT Assessment Noted Time PHQ-9 Depression Total Score: 2 11/07/19 19 2:06 PM EDT documented as of this encounter Care Teams Bearing Press Machine Operator Relationship Specialty Start Date End Date Caitlyn Bowie MD [address] [address] PCP - General Internal Medicine 05/06/21 documented as of this encounter
--- OUTSIDE RECORDS SUMMARY | 2024-09-09 01:39 | XMS_ITS | Encounter Summary ---
Author Organization [facility] Address [address] [place] [address] Care Team Providers Care Slp Teacher Name Role Phone Victorino Martin MD Primary Care Provider Sharon Odonnell Primary Care Provider Brennan Castro MD Primary Care Provider Unavailab Hayden Montes MD Unavailable [phone] Pallavi Flood NP Unavailable +1- [phone] Caitlyn Bowie MD Primary Care Provider Johnathon shaver Encounter Details Date Type Department Care Team Description 07/31/2018 Orders Only Pulmonology - [address] [place] [address] Henry Kelly MD Social History [...] on filedocumented in this encounter Care Teams Slp Teacher Relationship Specialty Start Date End Date Victorino Martin MD PCP - General Internal Medicine 12/21/17 08/01/18 Sharon Vides PCP - General Internal Medicine 08/02/18 05/26/20 Brennan Burnett MD PCP - General Internal Medicine 05/27/20 12/07/21 Caitlyn Bowie MD [address] [place] [address] PCP - General Internal Medicine 12/08/21 Hayden Shah MD [address] [place], [place] [address] Specialist Cardiovascular Disease 09/01/20 Pallavi Flood NP [address] [place] [address] Cardiology 09/01/20 documented as of this encounter
--- OUTSIDE RECORDS SUMMARY | 2024-09-09 01:39 | XMS_ITS | Encounter Summary ---
Author Organization [facility] and [facility] Address [address] [place] [address] Care Team Providers Care Duplicating Machine Mechanic Name Role Phone Caitlyn Bowie MD Primary Care Provider +1- [phone] Encounter Details Date Type Department Care Team (Late st Contact Info) Description 09/18/2020 Scanned Document [facility] Health Information Management [address] [place] [address] External, Provider Social History Tobacco Use Types [...] Description 09/30/2024 8:30 PM EDT Procedure visit [facility] [address] [place] [address] [address] [place] [address] 10/31/2024 1:00 PM EDT Telemedicine Cancer Center at [facility] 240 [facility] [address] [place] [address] Ronald Mills MD 240 [facility] A1 [place] [address] documented as of this encounter [...] documented as of this encounter Care Teams Duplicating Machine Mechanic Relationship Specialty Start Date End Date Caitlyn Bowie MD [address] [address] PCP - General Internal Medicine 05/06/21 documented as of this encounter
--- OUTSIDE RECORDS SUMMARY | 2024-09-09 01:39 | XMS_ITS | Encounter Summary ---
Author Organization [facility] Address [address] [place] [address] Care Team Providers Care 21 Dealer Name Role Phone Caitlyn Bowie MD Primary Care Provider +1- [phone] Encounter Details Date Type Department Care Team (Late st Contact Info) Description 12/16/2016 Scanned Document [facility] Health Information Management [address] [place] [address] External, Provider Social History Tobacco Use Types [...] Description 09/30/2024 8:30 PM EDT Procedure visit [facility] [address] [place] [address] [address] [place] [address] 10/31/2024 1:00 PM EDT Telemedicine [facility] at [facility] 240 [facility] Building [address] [place], [place] [address] Ronald Mills MD 240 [facility] [address]1 [place] [address] documented as of this encounter Procedures Procedure [...] documented as of this encounter Care Teams 21 Dealer Relationship Specialty Start Date End Date Caitlyn Bowie MD 3400 [facility] 1 [place] [address] PCP - General Internal Medicine 05/06/21 Henry Kelly MD Pulmonary Department 175 [facility], [address] [place] [address] Physician Pulmonary Disease 09/06/17 06/22/20 documented as of this encounter
--- OUTSIDE RECORDS SUMMARY | 2024-09-09 01:39 | XMS_ITS | Encounter Summary ---
Author Organization [facility] Address [address] [place] [address] Care Team Providers Care Tire Stripper Name Role Phone Victorino Martin MD Primary Care Provider UnavailSharon Kimbrough Primary Care Provider Unava ilable Brennan Burnett MD Primary Care Provider Unavailab Hayden Montes MD Unavailable [phone] Pallavi Flood NP Unavailable [phone]- [phone] Caitlyn Bowie MD Primary Care Provider Unava ilable Reason for Visit * Reason Onset Date Comments Orders Call 07/30/2018 ultrasound Encounter Details Date Type Department Care Team Description 07/30/2018 Telephone Pulmonology - [address] [place] [address] Henry Kelly MD Orders Call [...] have no order. Please fax order to [phone]. documented in this encounter Plan of Treatment Not on file documented as of this encounter Visit Diagnoses Not on filedocumented in this encounter Care Teams Tire Stripper Relationship Specialty Start Date End Date Victorino Martin MD PCP - General Internal Medicine 12/21/17 08/01/18 Sharon Vides PCP - General Internal Medicine 08/02/18 05/26/20 Brennan Burnett MD PCP - General Internal Medicine 05/27/20 12/07/21 Caitlyn Bowie MD [address] [place] [address] PCP - General Internal Medicine 12/08/21 Hayden Shah MD [address] [place] [address] Specialist Cardiovascular Disease 09/01/20 Pallavi Flood NP [address] [place] [address] Cardiology 09/01/20 documented as of this encounter
--- OUTSIDE RECORDS SUMMARY | 2024-09-09 01:39 | XMS_ITS | Encounter Summary ---
Author Organization [facility] Address [address] [place] [address] Care Team Providers Care Can Top Setter Name Role Phone Caitlyn Bowie MD Primary Care Provider +1- [phone] Encounter Details Date Type Department Care Team (Late st Contact Info) Description 02/02/2017 Scanned Document [facility] Health Information Management [address] [place] [address] External, Provider Social History Tobacco Use Types [...] Description 09/30/2024 8:30 PM EDT Procedure visit [facility] [address] [place] [address] [address] [place] [address] 10/31/2024 1:00 PM EDT [facility] 240 [facility] [address] [place], [place] [address] Ronald Mills MD 240 [facility] A1 [place] [address] documented as of this encounter Visit Diagnoses Not on filedocumented in this encounter Additional Health Concerns Infection Onset Date Last Indicated Resolved Time COVID-19 03/05/2022 03/05/2022 03/15/2022 7:18 PM EDT documented as of this encounter Care Teams Can Top Setter Relationship Specialty Start Date End Date Caitlyn Bowie MD 3400 [facility] 1 [place] [address] PCP - General Internal Medicine 05/06/21 Henry Kelly MD Pulmonary Department 175 [facility], [address] [place] [address] Physician Pulmonary Disease 09/06/17 06/22/20 documented as of this encounter
--- OUTSIDE RECORDS SUMMARY | 2024-09-09 01:39 | XMS_ITS | Encounter Summary ---
Author Organization [facility] Address [address] [place] [address] Care Team Providers Care Paper Rewinder Operator Name Role Phone Victorino Martin MD Primary Care Provider UnavailSharon Kimbrough Primary Care Provider Unava ilable Brennan Burnett MD Primary Care Provider Unavailab Hayden Montes MD Unavailable Pallavi Flood NP Unavailable +1- [phone] Caitlyn Bowie MD Primary Care Provider Unava ilable Reason for Visit * Reason Onset Date Comments refill request 06/25/2018 Call From Pharmacy 06/25/2018 Encounter Details Date Type Department Care Team Description 06/25/2018 Refill Pulmonology - [address] [place] [address] Henry Kelly MD refill request; [...] Does patient have an upcoming appointment? Yes [id number] (THE MEDICATION IS NOT ON THE MED LIST AND IS IDENTIFIED BELOW): {MED LIST:[id number]) Med name: Ventolin HFA Dosage: 90 mcg [...] bronchitis documented in this encounter Care Teams Paper Rewinder Operator Relationship Specialty Start Date End Date Victorino Martin MD PCP - General Internal Medicine 12/21/17 08/01/18 Sharon Vides PCP - General Internal Medicine 08/02/18 05/26/20 Brennan Burnett MD PCP - General Internal Medicine 05/27/20 12/07/21 Caitlyn Bowie MD [address] [place] [address] PCP - General Internal Medicine 12/08/21 Hayden Shah MD [address] [place] [address] Specialist Cardiovascular Disease 09/01/20 Pallavi Flood NP [address] [place] [address] Cardiology 09/01/20 documented as of this encounter
--- OUTSIDE RECORDS SUMMARY | 2024-09-09 01:40 | XMS_ITS | Encounter Summary ---
Author Organization [facility] Address [address] [place] [address] Care Team Providers Care Record Center Coordinator Name Role Phone Cristofer Hope MD Primary Care Provider Victorino Read MD Primary Care Provider UnavailSharon Kimbrough Primary Care Provider Unava ilBrennan Newman MD Primary Care Provider Unavailab Hayden Montes MD Unavailable [phone] Pallavi Flood NP Unavailable [phone]- [phone] Caitlyn Bowie MD Primary Care Provider Unava chhaya Encounter Details Date Type Department Care Team Description 11/15/2017 Transfer Records Medical Records [address] [place] [address] Abstract, Provider Social History Tobacco Use Types [...] on filedocumented in this encounter Care Teams Record Center Coordinator Relationship Specialty Start Date End Date Cristofer Hope MD PCP - General Internal Medicine 05/16/17 12/20/17 Victorino Martin MD PCP - General Internal Medicine 12/21/17 08/01/18 Sharon Vides PCP - General Internal Medicine 08/02/18 05/26/20 Brennan Burnett MD PCP - General Internal Medicine 05/27/20 12/07/21 Caitlyn Bowie MD [address] [place] [address] PCP - General Internal Medicine 12/08/21 Hayden Shah MD [address] [place] [address] Specialist Cardiovascular Disease 09/01/20 Pallavi Flood NP [address] [place] [address] Cardiology 09/01/20 documented as of this encounter
--- OUTSIDE RECORDS SUMMARY | 2024-09-09 01:40 | XMS_ITS | Encounter Summary ---
Author Organization [facility] Address [address] [place] [address] Care Team Providers Care Flight Software Test Engineer Name Role Phone Caitlyn Bowie MD Primary Care Provider +1- [phone] Encounter Details Date Type Department Care Team (Late st Contact Info) Description 04/26/2017 Scanned Document Cardiovascular Medicine at [address] [address] System, Provider Not In Social History Tobacco [...] Description 09/30/2024 8:30 PM EDT Procedure visit [facility] [address] [place] [address] [address] [place] [address] 10/31/2024 1:00 PM EDT [facility]icine [facility] 240 [facility] Building [address] [place], [place] [phone] Ronald Mills MD 240 [facility] A1 [place] [address] documented as of this encounter [...] documented as of this encounter Care Teams Flight Software Test Engineer Relationship Specialty Start Date End Date Caitlyn Bowie MD 3400 [facility] [address] 1 [place] [address] PCP - General Internal Medicine 05/06/21 Henry Kelly MD Pulmonary Department 175 [facility], [address] [place] [address] Physician Pulmonary Disease 09/06/17 06/22/20 documented as of this encounter
--- OUTSIDE RECORDS SUMMARY | 2024-09-09 01:40 | XMS_ITS | Encounter Summary ---
Author Organization [facility] Address [address] [place] [address] Care Team Providers Care Spice Cleaner Name Role Phone Victorino Martin MD Primary Care Provider Sharon Odonnell Primary Care Provider Brennan Castro MD Primary Care Provider Unavailab Hayden Montes MD Unavailable [phone] Pallavi Flood NP Unavailable [phone] Caitlyn Bowie MD Primary Care Provider Johnathon shaver Encounter Details Date Type Department Care Team Description 07/12/2018 Orders Only Pulmonology - [address] [place] [address] Henry Kelly MD Social History [...] on filedocumented in this encounter Care Teams Spice Cleaner Relationship Specialty Start Date End Date Victorino Martin MD PCP - General Internal Medicine 12/21/17 08/01/18 Sharon Vides PCP - General Internal Medicine 08/02/18 05/26/20 Brennan Burnett MD PCP - General Internal Medicine 05/27/20 12/07/21 Caitlyn Bowie MD [address] [place] [address] PCP - General Internal Medicine 12/08/21 Hayden Shah MD [address] [place], [place] [phone] Specialist Cardiovascular Disease 09/01/20 Pallavi Flood NP [address] [place] [address] Cardiology 09/01/20 documented as of this encounter
--- OUTSIDE RECORDS SUMMARY | 2024-09-09 01:40 | XMS_ITS | Encounter Summary ---
Author Organization [facility] Address [address] [place] [address] Care Team Providers Care Hat Designer Name Role Phone Caitlyn Bowie MD Primary Care Provider +1- [phone] Encounter Details Date Type Department Care Team (Late st Contact Info) Description 06/27/2019 Scanned Document Onco-Oncology Program at [address] [place] [address] Norma Renee MD [address] [place] [address] 2 [place] [phone] Social History Tobacco Use Types Packs/Day Years [...] Description 09/30/2024 8:30 PM EDT Procedure visit [facility] [address] [place] [address] 10/31/2024 1:00 PM EDT Telemedicine Cancer Center at [address] [place], [place] [address] Ronald Mills MD 240 [facility] [address] [place] [address] documented as of this encounter Visit Diagnoses Not on filedocumented in this encounter Additional Health Concerns Infection Onset Date Last Indicated Resolved Time COVID-19 03/05/2022 03/05/2022 03/15/2022 7:18 PM EDT Assessment Noted Time PHQ-9 Depression Total Score: 2 11/07/19 19 2:06 PM EDT documented as of this encounter Care Teams Hat Designer Relationship Specialty Start Date End Date Caitlyn Bowie MD 3400 [facility] 1 [place] [address] PCP - General Internal Medicine 05/06/21 Henry Kelly MD Pulmonary Department [address] [place] [address], [address] [place] [address] Physician Pulmonary Disease 09/06/17 06/22/20 documented as of this encounter
--- OUTSIDE RECORDS SUMMARY | 2024-09-09 01:40 | XMS_ITS | Encounter Summary ---
Author Organization [facility] Address [address] [place] [address] Care Team Providers Care Beater Room Supervisor Name Role Phone Caitlyn Bowie MD Primary Care Provider +1- [phone] Encounter Details Date Type Department Care Team (Late st Contact Info) Description 09/09/2020 Scanned Document [facility] Health Information Management [address] [place] [address] External, Provider Social History Tobacco Use Types [...] Description 09/30/2024 8:30 PM EDT Procedure visit [facility] [address] [place] [address] [address] [place] [phone] 10/31/2024 1:00 PM EDT Telemedicine [facility] at [facility] 240 [facility] [address] [place] [address] Ronald Mills MD 240 [facility] A1 [place] [address] documented as of this encounter [...] as of this encounter Care Teams Beater Room Supervisor Relationship Specialty Start Date End Date Caitlyn Bwoie MD [address] [address] PCP - General Internal Medicine 05/06/21 documented as of this encounter
--- OUTSIDE RECORDS SUMMARY | 2024-09-09 01:40 | XMS_ITS | Encounter Summary ---
Author Organization [facility] Address [address] [place] [address] Care Team Providers Care Boiler Helper Name Role Phone Caitlyn Bowie MD Primary Care Provider +1- [phone] Encounter Details Date Type Department Care Team (Late st Contact Info) Description 01/22/2020 Scanned Document Lab for [facility] [address] [place] [address] Kerwin Menjivar MD [address] [place] [address] Social History Tobacco Use Types Packs/Day [...] Description 09/30/2024 8:30 PM EDT Procedure visit [facility] [address] [place] [address] [address] [place] [address] 10/31/2024 1:00 PM EDT Telemedicine Cancer Center at [address] [place], [place] [address] Ronald Mills MD 240 [facility] [address] [place] [address] documented as of this encounter Visit Diagnoses Not on filedocumented in this encounter Additional Health Concerns Infection Onset Date Last Indicated Resolved Time COVID-19 03/05/2022 03/05/2022 03/15/2022 7:18 PM EDT Assessment Noted Time PHQ-9 Depression Total Score: 2 11/07/19 19 2:06 PM EDT documented as of this encounter Care Teams Boiler Helper Relationship Specialty Start Date End Date Caitlyn Bowie MD [address] [address] PCP - General Internal Medicine 05/06/21 Henry Kelly MD Pulmonary Department 175 [facility], [address] [place] [address] Physician Pulmonary Disease 09/06/17 06/22/20 documented as of this encounter
--- OUTSIDE RECORDS SUMMARY | 2024-09-09 01:40 | XMS_ITS | Encounter Summary ---
Author Organization [facility] Address [address] [place] [address] Care Team Providers Care Label Remover Name Role Phone Victorino Martin MD Primary Care Provider Sharon Odonnell Primary Care Provider Brennan Castro MD Primary Care Provider Unavailab Hayden Montes MD Unavailable [phone] Pallavi Flood NP Unavailable [phone]- [phone] Caitlyn Bowie MD Primary Care Provider Johnathon shaver Encounter Details Date Type Department Care Team Description 07/04/2018 Refill Pulmonology - [address] [place] [address] Henry Kelly MD Social History [...] Preferred pharmacy: [facility] Comment: documented in this encounter Plan of Treatment Not on file documented as of this encounter Visit Diagnoses Not on filedocumented in this encounter Care Teams Label Remover Relationship Specialty Start Date End Date Victorino Martin MD PCP - General Internal Medicine 12/21/17 08/01/18 Sharon Vides PCP - General Internal Medicine 08/02/18 05/26/20 Brennan Burnett MD PCP - General Internal Medicine 05/27/20 12/07/21 Caitlyn Bowie MD [address] [place] [address] PCP - General Internal Medicine 12/08/21 Hayden Shah MD [address] [place] [address] Specialist Cardiovascular Disease 09/01/20 Pallavi Flood NP [address] [place] [address] Cardiology 09/01/20 documented as of this encounter
--- OUTSIDE RECORDS SUMMARY | 2024-09-09 01:40 | XMS_ITS | Encounter Summary ---
Author Organization [facility] Address [address] [place] [address] Care Team Providers Care Geothermal Electrical Engineer Name Role Phone Caitlyn Bowie MD Primary Care Provider [phone]- [phone] Encounter Details Date Type Department Care Team (Late st Contact Info) Description 12/16/2016 Scanned Document [facility] Health Information Management [address] [place] [address] External, Provider Social History Tobacco Use Types [...] Description 09/30/2024 8:30 PM EDT Procedure visit [facility] [address] [place] [address] [address] [place] [address] 10/31/2024 1:00 PM EDT Telemedicine Cancer Center at [facility] 240 [facility] Building [address] [place], [place] [address] Ronald Mills MD 240 [facility] A1 [place] [address] documented as of this encounter Procedures Procedure [...] documented as of this encounter Care Teams Geothermal Electrical Engineer Relationship Specialty Start Date End Date Caitlyn Bowie MD 3400 [facility] 1 [place] [address] PCP - General Internal Medicine 05/06/21 Henry Kelly MD Pulmonary Department 175 [facility], [address] [place] [address] Physician Pulmonary Disease 09/06/17 06/22/20 documented as of this encounter
--- OUTSIDE RECORDS SUMMARY | 2024-09-09 01:40 | XMS_ITS | Encounter Summary ---
Author Organization [facility] Address [address] [place] [address] Care Team Providers Care Molder Sweep Name Role Phone Caitlyn Bowie MD Primary Care Provider +1- [phone] Encounter Details Date Type Department Care Team (Late st Contact Info) Description 11/29/2019 Scanned Document [facility] Health Information Management [address] [place] [address] External, Provider Social History Tobacco Use Types [...] Description 09/30/2024 8:30 PM EDT Procedure visit [facility] [address] [place] [address] [address] [place] [address] 10/31/2024 1:00 PM EDT Telemedicine Cancer Center at [facility] 240 [facility] [address] [place] [address] Ronald Mills MD [address] [facility] [address] [place] [address] documented as of this encounter Procedures Procedure [...] documented as of this encounter Care Teams Molder Sweep Relationship Specialty Start Date End Date Caitlyn Bowie MD 3400 [facility] [place] 1 [place] [address] PCP - General Internal Medicine 05/06/21 Henry Kelly MD Pulmonary Department 175 [facility], [address] [place] [address] Physician Pulmonary Disease 09/06/17 06/22/20 documented as of this encounter
--- OUTSIDE RECORDS SUMMARY | 2024-09-09 01:40 | XMS_ITS | Encounter Summary ---
Author Organization [facility] Address [address] [place] [address] Care Team Providers Care Pull Over Name Role Phone Brennan Burnett MD Primary Care Provider [phone] Encounter Details Date Type Department Care Team (Late st Contact Info) Description 08/26/2024 10:30 AM EST Telemedicine [facility] [address] [facility] [address] [place] [phone] Ayanna Jaffe MD [address] [facility] [address] [place] [phone] Anxiety (Primary Dx); Memory change; Gait abnormality; [...] which they are responsible for. Patients Location: [facility]: Jovana Malik is a 79 y.o. [...] with sleep she restarted She saw her airborne mission systems and will refer to sleep study she wants to go to [facility] 79 yo female with PMH Pulmonary HTN , She does have coronary disease but nothing high-grade and never had percutaneous coronary invention or heart surgery leg bypass. 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 The majority of the actual [id number] visit was spent counseling the patient with respect to the current neurological picture. Ayanna Jaffe MD 33 documented in this encounter Plan of Treatment Upcoming Encounters Date Type Department Care Team (Late st Contact Info) Description 09/09/2024 3:30 PM EST Treatment [facility] Speech Therapy [address] [place] [address] Daphne Alarcon, BOOSTER PLANT OPERATOR documented as of this encounter Goals Goal Patient Goal Type Associated Problems Recent Progress Patient-Stated? Author ST LTG General No Daphne Alarcon, BOOSTER PLANT OPERATOR Note: Pt will improve cognitive linguistic function to participate and communicate in iADLs mod I ST STGs General No Daphne Alarcon, BOOSTER PLANT OPERATOR Note: Pt will participate with development [...] documented as of this encounter Care Teams Pull Over Relationship Specialty Start Date End Date Brennan Burnett MD [address] [place] [address] PCP - General 05/06/24 documented as of this encounter
--- OUTSIDE RECORDS SUMMARY | 2024-09-09 01:40 | XMS_ITS | Encounter Summary ---
Author Organization [facility] Address [address] [place] [address] Care Team Providers Care Price Analyst Name Role Phone Caitlyn Bowie MD Primary Care Provider +1- [phone] Encounter Details Date Type Department Care Team (Late st Contact Info) Description 11/26/2019 Scanned Document Cancer Center at [address] [address] External, Provider Social History Tobacco Use Types [...] Description 09/30/2024 8:30 PM EDT Procedure visit [facility] [address] [place] [address] [address] [place] [phone] 10/31/2024 1:00 PM EDT Telemedicine Cancer Center at [address] [place] [address] Ronald Mills MD [address] [address] documented as of this encounter [...] documented as of this encounter Care Teams Price Analyst Relationship Specialty Start Date End Date Caitlyn Bowie MD 3400 [facility] Max 1 [place] [address] PCP - General Internal Medicine 05/06/21 Henry Kelly MD Pulmonary Department [address] [place] [address], [address] [place] [address] Physician Pulmonary Disease 09/06/17 06/22/20 documented as of this encounter
--- OUTSIDE RECORDS SUMMARY | 2024-09-09 01:40 | XMS_ITS | Encounter Summary ---
Author Organization [facility] Address [address] [place] [address] Care Team Providers Care Forest Landscape Ecology Professor Name Role Phone Cristofer Hope MD Primary Care Provider Victorino Read MD Primary Care Provider UnavailSharon Kimbrough Primary Care Provider Unava ilBrennan Newman MD Primary Care Provider Unavailab Hayden Montes MD Unavailable [phone] Pallavi Flood NP Unavailable [phone]- [phone] Caitlyn Bowie MD Primary Care Provider Unava chhaya Encounter Details Date Type Department Care Team Description 06/12/2017 Transfer Records Medical Records 4 [place] [address] Abstract, Provider Social History Tobacco Use Types [...] on filedocumented in this encounter Care Teams Forest Landscape Ecology Professor Relationship Specialty Start Date End Date Cristofer Hope MD PCP - General Internal Medicine 05/16/17 12/20/17 Victorino Martin MD PCP - General Internal Medicine 12/21/17 08/01/18 Sharon Vides PCP - General Internal Medicine 08/02/18 05/26/20 Brennan Burnett MD PCP - General Internal Medicine 05/27/20 12/07/21 Caitlyn Bowie MD [address] [place] [address] PCP - General Internal Medicine 12/08/21 Hayden Shah MD [address] [place], [place] [phone] Specialist Cardiovascular Disease 09/01/20 Pallavi Flood NP [address] [place], [place] [phone] Cardiology 09/01/20 documented as of this encounter
--- OUTSIDE RECORDS SUMMARY | 2024-09-09 01:40 | XMS_ITS | Encounter Summary ---
Author Organization [facility] Address [address] [place] [address] Care Team Providers Care Senior Net Application Developer Name Role Phone Caitlyn Bowie MD Primary Care Provider +1- [phone] Encounter Details Date Type Department Care Team (Late st Contact Info) Description 07/26/2012 Abstract [facility] Health Information Management [address] [place] [address] [place], Primary Care [address] [place] [phone] Social History Tobacco Use Types Packs/Day Years [...] Description 09/30/2024 8:30 PM EDT Procedure visit [facility] [address] [place] [address] [address] [place] [address] 10/31/2024 1:00 PM EDT Telemedicine [facility] at [facility] 240 [facility] [address] [place], [place] [address] Ronald Mills MD 240 [facility] Max [address] [place] [address] documented as of this encounter Visit Diagnoses Not on filedocumented in this encounter Additional Health Concerns Infection Onset Date Last Indicated Resolved Time COVID-19 03/05/2022 03/05/2022 03/15/2022 7:18 PM EDT documented as of this encounter Care Teams Senior Net Application Developer Relationship Specialty Start Date End Date Caitlyn Bowie MD 3400 [facility] 1 [place] [address] PCP - General Internal Medicine 05/06/21 Henry Kelly MD Pulmonary Department 175 [facility], [address] [place] [address] Physician Pulmonary Disease 09/06/17 06/22/20 documented as of this encounter
--- OUTSIDE RECORDS SUMMARY | 2024-09-09 01:40 | XMS_ITS | Encounter Summary ---
Author Organization [facility] Address [address] [place] [address] Care Team Providers Care Aerospace Control And Warning Systems Name Role Phone Caitlyn Bowie MD Primary Care Provider +1- [phone] Encounter Details Date Type Department Care Team (Late st Contact Info) Description 08/16/2012 Abstract [facility] Health Information Management [address] [place] [address] [place], Primary Care [address] [place] [address] Social History Tobacco Use Types Packs/Day Years [...] Description 09/30/2024 8:30 PM EDT Procedure visit [facility] [address] [place] [phone] 10/31/2024 1:00 PM EDT Telemedicine [facility] [place] 240 [facility] Building [address] [place] [address] Ronald Mills MD 240 [facility] [address] [place] [address] documented as of this encounter Visit Diagnoses Not on filedocumented in this encounter Additional Health Concerns Infection Onset Date Last Indicated Resolved Time COVID-19 03/05/2022 03/05/2022 03/15/2022 7:18 PM EDT documented as of this encounter Care Teams Aerospace Control And Warning Systems Relationship Specialty Start Date End Date Caitlyn Bowie MD 3400 [facility] 1 [place] [address] PCP - General Internal Medicine 05/06/21 Henry Kelly MD Pulmonary Department 175 [facility], [address] [place] [address] Physician Pulmonary Disease 09/06/17 06/22/20 documented as of this encounter
--- OUTSIDE RECORDS SUMMARY | 2024-09-09 01:40 | XMS_ITS | Encounter Summary ---
Author Organization [facility] Address [address] [place] [address] Care Team Providers Care Fisher Trawl Line Name Role Phone Caitlyn Bowie MD Primary Care Provider +1- [phone] Encounter Details Date Type Department Care Team (Late st Contact Info) Description 12/19/2016 Scanned Document [facility] Health Information Management [address] [place] [address] External, Provider Social History Tobacco Use Types [...] Description 09/30/2024 8:30 PM EDT Procedure visit [facility] [address] [place] [address] [address] [place] [address] 10/31/2024 1:00 PM EDT Telemedicine Cancer Center at [facility] 240 [facility] Building [address] [place], [place] [address] Ronald Mills MD 240 [facility] A1 [place] [address] documented as of this encounter Procedures Procedure [...] documented as of this encounter Care Teams Fisher Trawl Line Relationship Specialty Start Date End Date Caitlyn Bowie MD 3400 [facility] [address] 1 [place] [address] PCP - General Internal Medicine 05/06/21 Henry Kelly MD Pulmonary Department 175 [facility], [address] [place] [address] Physician Pulmonary Disease 09/06/17 06/22/20 documented as of this encounter
--- OUTSIDE RECORDS SUMMARY | 2024-09-09 01:40 | XMS_ITS | Encounter Summary ---
Author Organization [facility] Address [address] [place] [address] Care Team Providers Care Extension Educator Name Role Phone Brennan Burnett MD Primary Care Provider Reason for Visit * Reason Comments Encopresis Encounter Details Date Type Department Care Team (Latest Contact Info) Description 08/23/2024 1:20 PM EST Office Visit Gastroenterology - [address] [place] [address] [facility] [address] [facility] [address] [place] [address] Saima Amor, ALON [address] [address] Gastroesophageal reflux disease, unspecified whether esophagitis present [...] X week. No bleeding Very gassy. 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 Board Certified Gastroenterology [facility] Medical [facility] W [phone] 299 [facility] [address] [place] [address] [email or web address] Saima Amor NP documented in this encounter Plan of Treatment Upcoming Encounters Date Type Department Care Team (Late st Contact Info) Description 09/09/2024 3:30 PM EST Treatment [facility] Speech Therapy 175 [facility] 350 [place] [address] Daphne Alarcon, MEDICAL COMMUNICATION SPECIALIST documented as of this encounter Goals Goal Patient Goal Type Associated Problems Recent Progress Patient-Stated? Author ST LTG General No Daphne Alarcon, MEDICAL COMMUNICATION SPECIALIST Note: Pt will improve cognitive linguistic function to participate and communicate in iADLs mod I ST STGs General No Daphne Alarcon, MEDICAL COMMUNICATION SPECIALIST Note: Pt will participate with development of [...] type documented in this encounter Care Teams Extension Educator Relationship Specialty Start Date End Date Brennan Burnett MD [address] [place] [address] PCP - General 05/06/24 documented as of this encounter
--- OUTSIDE RECORDS SUMMARY | 2024-09-09 01:40 | XMS_ITS | Encounter Summary ---
Author Organization [facility] Address [address] [place] [address] Care Team Providers Care News Production Assistant Name Role Phone Caitlyn Bowie MD Primary Care Provider [phone]- [phone] Encounter Details Date Type Department Care Team (Late st Contact Info) Description 12/03/2019 Scanned Document [facility] Health Information Management [address] [place] [address] External, Provider Social History Tobacco Use Types [...] Description 09/30/2024 8:30 PM EDT Procedure visit [facility] [address] [place] [address] [address] [place] [address] 10/31/2024 1:00 PM EDT Tele[facility]icine [facility] 240 [facility] [address] [place] [address] Ronald Mills MD 240 [facility] A1 [place] [address] documented as of this encounter Visit Diagnoses Not on filedocumented in this encounter Additional Health Concerns Infection Onset Date Last Indicated Resolved Time COVID-19 03/05/2022 03/05/2022 03/15/2022 7:18 PM EDT Assessment Noted Time PHQ-9 Depression Total Score: 2 11/07/19 19 2:06 PM EDT documented as of this encounter Care Teams News Production Assistant Relationship Specialty Start Date End Date Caitlyn Bowie MD 3400 [facility] 1 [place] [address] PCP - General Internal Medicine 05/06/21 Henry Kelly MD Pulmonary Department [address] [place] [address], [address] [place] [address] Physician Pulmonary Disease 09/06/17 06/22/20 documented as of this encounter
--- OUTSIDE RECORDS SUMMARY | 2024-09-09 01:40 | XMS_ITS | Encounter Summary ---
Author Organization [facility] Address [address] [place] [address] Care Team Providers Care Fire Marshal Refinery Name Role Phone Caitlyn Bowie MD Primary Care Provider +1- [phone] Encounter Details Date Type Department Care Team (Late st Contact Info) Description 08/29/2019 Scanned Document Cancer Center at [address] [address] External, Provider Social History Tobacco Use Types [...] Description 09/30/2024 8:30 PM EDT Procedure visit [facility] [address] [place] [address] [address] [place] [address] 10/31/2024 1:00 PM EDT Telemedicine Cancer Center at [address] [place] [address] Ronald Mills MD [address] [address] documented as of this encounter [...] documented as of this encounter Care Teams Fire Marshal Refinery Relationship Specialty Start Date End Date Caitlyn Bowie MD 3400 [facility] Max 1 [place] [address] PCP - General Internal Medicine 05/06/21 Henry Kelly MD Pulmonary Department [address] [place] [address], [address] [place] [address] Physician Pulmonary Disease 09/06/17 06/22/20 documented as of this encounter
--- OUTSIDE RECORDS SUMMARY | 2024-09-09 01:40 | XMS_ITS | Clinical Summary ---
Author Organization [facility] Address [address] [place] [address] Care Team Providers Care Sr Vice President Name Role Phone Brennan Burnett MD Primary Care Provider [phone] Allergies Active Allergy Reactions Criticality Noted Date [...] age to complete this topic Care Teams Sr Vice President Relationship Specialty Start Date End Date Brennan Burnett MD [address] [place] [address] PCP - General Internal Medicine 07/06/20
--- OUTSIDE RECORDS SUMMARY | 2024-09-09 01:40 | XMS_ITS | Encounter Summary ---
Author Organization [facility] Address [address] [place] [address] Care Team Providers Care Pottery Machine Operator Name Role Phone Caitlyn Bowie MD Primary Care Provider +1- [phone] Encounter Details Date Type Department Care Team (Late st Contact Info) Description 12/16/2016 Scanned Document [facility] Health Information Management [address] [place] [address] External, Provider Social History Tobacco Use Types [...] Description 09/30/2024 8:30 PM EDT Procedure visit [facility] [address] [place] [address] [address] [place] [address] 10/31/2024 1:00 PM EDT [facility] 240 [facility] Building [address] [place], [place] [address] Ronald Mills MD 240 [facility] A1 [place] [address] documented as of this encounter Procedures Procedure [...] documented as of this encounter Care Teams Pottery Machine Operator Relationship Specialty Start Date End Date Caitlyn Bowie MD 3400 [facility] 1 [place] [address] PCP - General Internal Medicine 05/06/21 Henry Kelly MD Pulmonary Department 175 [facility], [address] [place] [address] Physician Pulmonary Disease 09/06/17 06/22/20 documented as of this encounter
--- OUTSIDE RECORDS SUMMARY | 2024-09-09 01:40 | XMS_ITS | Encounter Summary ---
Author Organization [facility] Address 20 [place] [address] Care Team Providers Care Associate Program Manager Name Role Phone Caitlyn Bowie MD Primary Care Provider [phone]- [phone] Encounter Details Date Type Department Care Team (Late st Contact Info) Description 12/16/2016 Scanned Document [facility] Health Information Management [address] [place] [address] External, Provider Social History Tobacco Use Types [...] Description 09/30/2024 8:30 PM EDT Procedure visit [facility] [address] [place] [address] [address] [place] [address] 10/31/2024 1:00 PM EDT Telemedicine [facility] at [facility] 240 [facility] [place] Building [address] [place], [place] [address] Ronald Mills MD 240 [facility] A1 [place] [address] documented as of this encounter Visit Diagnoses Not on filedocumented in this encounter Additional Health Concerns Infection Onset Date Last Indicated Resolved Time COVID-19 03/05/2022 03/05/2022 03/15/2022 7:18 PM EDT documented as of this encounter Care Teams Associate Program Manager Relationship Specialty Start Date End Date Caitlyn Bowie MD 3400 [facility] [address] 1 [place] [address] PCP - General Internal Medicine 05/06/21 Henry Kelly MD Pulmonary Department 175 [facility], [address] [place] [address] Physician Pulmonary Disease 09/06/17 06/22/20 documented as of this encounter
--- OUTSIDE RECORDS SUMMARY | 2024-09-09 01:40 | XMS_ITS | Encounter Summary ---
Author Organization [facility] Address 20 [place] [address] Care Team Providers Care Customer Care Representative Name Role Phone Caitlyn Bowie MD Primary Care Provider [phone]- [phone] Encounter Details Date Type Department Care Team (Late st Contact Info) Description 06/21/2012 Abstract Head & Neck Cancers Program at [address] [address] Mikel Lloyd MD [address] [place] [phone] (Fax) Social History Tobacco Use Types Packs/Day [...] Description 09/30/2024 8:30 PM EDT Procedure visit [facility] [address] [place] [address] [address] [place] [address] 10/31/2024 1:00 PM EDT Telemedicine Cancer Center at [address] [place] [address] Ronald Mills MD [address] [place] [address] [address] [place] [address] documented as of this encounter Visit Diagnoses Not on filedocumented in this encounter Additional Health Concerns Infection Onset Date Last Indicated Resolved Time COVID-19 03/05/2022 03/05/2022 03/15/2022 7:18 PM EDT documented as of this encounter Care Teams Customer Care Representative Relationship Specialty Start Date End Date Caitlyn Bowie MD 3400 [facility] 1 [place] [address] PCP - General Internal Medicine 05/06/21 Henry Kelly MD Pulmonary Department 175 [facility], [address] [place] [address] Physician Pulmonary Disease 09/06/17 06/22/20 documented as of this encounter
--- OUTSIDE RECORDS SUMMARY | 2024-09-09 01:40 | XMS_ITS | Encounter Summary ---
Author Organization [facility] Address 20 [place] [address] Care Team Providers Care Electrical Sign Wirer Helper Name Role Phone Caitlyn Bowie MD Primary Care Provider +1- [phone] Encounter Details Date Type Department Care Team (Latest Contact Info) Description 04/15/2013 Transcribed Orders [facility] [address] [place] [address] Tian Atwood MD 280 [facility] 102 [place] [address] Unspecified hypothyroidism (Primary Dx) Social [...] Description 09/30/2024 8:30 PM EDT Procedure visit [facility] [address] [place] [address] [address] [place] [address] 10/31/2024 1:00 PM EDT Telemedicine [facility] Center at [facility] 240 [facility] Building [address] [place], [place] [address] Ronald Mills MD 240 [facility] Max [address] [place] [address] documented as of this encounter Results * Copper, serum total (YH) (04/15/2013 4:31 PM EDT) Copper, Serum Total SEE BELOW [facility] Comment: Test ?Result ? Flag ??Unit ?RefValue Copper, S ? 1.35 ? mcg/mL ??0.75-1.45 04/15/2013 4:31 PM EDT us Tian tAwood MD LAB BLOOD ORDERABLES Final R esult [facility] [address] [place] [address] documented in this encounter Visit Diagnoses Diagnosis Unspecified hypothyroidism- Primary documented in this encounter Additional Health Concerns Infection Onset Date Last Indicated Resolved Time COVID-19 03/05/2022 03/05/2022 03/15/2022 7:18 PM EDT documented as of this encounter Care Teams Electrical Sign Wirer Helper Relationship Specialty Start Date End Date Caitlyn Bowie MD 8731 [facility] 1 [place] [address] PCP - General Internal Medicine 05/06/21 Henry Kelly MD Pulmonary Department 175 [facility], [address] [place], [place] [address] Physician Pulmonary Disease 09/06/17 06/22/20 documented as of this encounter
--- OUTSIDE RECORDS SUMMARY | 2024-09-09 01:40 | XMS_ITS | Encounter Summary ---
Author Organization [facility] and [facility] Address [address] [place] [address] Care Team Providers Care Land Law Examiner Name Role Phone Caitlyn Bowie MD Primary Care Provider [phone]- [phone] Encounter Details Date Type Department Care Team (Late st Contact Info) Description 04/18/2013 Documentation Hematology Program at [address] [address] Isis Ragland RN Social History Tobacco Use [...] Description 09/30/2024 8:30 PM EDT Procedure visit [facility] [address] [place] [address] [address] [place] [address] 10/31/2024 1:00 PM EDT Telemedicine Cancer Center at [address] [place], [place] [address] Ronald Mills MD [address] [place] [address] documented as of this encounter Visit Diagnoses Not on filedocumented in this encounter Additional Health Concerns Infection Onset Date Last Indicated Resolved Time COVID-19 03/05/2022 03/05/2022 03/15/2022 7:18 PM EDT documented as of this encounter Care Teams Land Law Examiner Relationship Specialty Start Date End Date Caitlyn Bowie MD 34[address] [facility] Max 1 [place] [address] PCP - General Internal Medicine 05/06/21 Henry Kelly MD Pulmonary Department 175 [facility], [address] [place] [address] Physician Pulmonary Disease 09/06/17 06/22/20 documented as of this encounter
--- OUTSIDE RECORDS SUMMARY | 2024-09-09 01:40 | XMS_ITS | Encounter Summary ---
Author Organization [facility] Address [address] [place] [address] Care Team Providers Care Hide And Skin Fleshing Machine Operator Name Role Phone Caitlyn Bowie MD Primary Care Provider +1- [phone] Encounter Details Date Type Department Care Team (Late st Contact Info) Description 12/16/2016 Scanned Document [facility] Health Information Management [address] [place] [address] External, Provider Social History Tobacco Use Types [...] Description 09/30/2024 8:30 PM EDT Procedure visit [facility] [address] [place] [address] [address] [place] [address] 10/31/2024 1:00 PM EDT [facility] 240 [facility] Building [address] [place], [place] [address] Ronald Mills MD 240 [facility] A1 [place] [address] documented as of this encounter Procedures Procedure [...] documented as of this encounter Care Teams Hide And Skin Fleshing Machine Operator Relationship Specialty Start Date End Date Caitlyn Bowie MD 3400 [facility] 1 [place] [address] PCP - General Internal Medicine 05/06/21 Henry Kelly MD Pulmonary Department 175 [facility], [address] [place] [address] Physician Pulmonary Disease 09/06/17 06/22/20 documented as of this encounter
--- OUTSIDE RECORDS SUMMARY | 2024-09-09 01:40 | XMS_ITS | Encounter Summary ---
Author Organization [facility] Address [address] [place] [address] Care Team Providers Care Thermostat Repairer Name Role Phone Brennan Burnett MD Primary Care Provider [phone] Reason for Visit * Reason Onset Date Comments returning pt call 08/19/2024 Encounter Details Date Type Department Care Team (Late st Contact Info) Description 08/19/2024 Telephone [facility] Speech Therapy [address] [address] Daphne Alarcon, FISH RECEIVER returning pt call Social History Tobacco Use [...] call about receiving a copy of her FISH RECEIVER evaluation. She has called medical records and was not able to reach an employee. She does not use [employer] and is requesting a copy of her records. Left her VM with information to complete medical release form (can be emailed or mailed) and then how to submit completed form. documented in this encounter Plan of Treatment Upcoming Encounters Date Type Department Care Team (Late st Contact Info) Description 09/09/2024 3:30 PM EST Treatment [facility] Speech Therapy [address] [place] [address] Daphne Alarcon, FISH RECEIVER documented as of this encounter Goals Goal Patient Goal Type Associated Problems Recent Progress Patient-Stated? Author ST LTG General No Daphne Alarcon, FISH RECEIVER Note: Pt will improve cognitive linguistic function to participate and communicate in iADLs mod I ST STGs General No Daphne Alarcon, FISH RECEIVER Note: Pt will participate with development of [...] on filedocumented in this encounter Care Teams Thermostat Repairer Relationship Specialty Start Date End Date Brennan Burnett MD [address] [place] [address] PCP - General 05/06/24 documented as of this encounter
--- OUTSIDE RECORDS SUMMARY | 2024-09-09 01:40 | XMS_ITS | Encounter Summary ---
Author Organization [facility] and [facility] Address [address] [place] [address] Care Team Providers Care Stem Roller Or Crusher Operator Name Role Phone Caitlyn Bowie MD Primary Care Provider [phone]- [phone] Encounter Details Date Type Department Care Team (Late st Contact Info) Description 03/01/2017 Scanned Document Onco-Oncology Program at [address] [address] Norma Renee MD [address] [place] [phone] Social History Tobacco Use Types Packs/Day Years [...] Description 09/30/2024 8:30 PM EDT Procedure visit [facility] [address] [place] [address] [address] [place] [address] 10/31/2024 1:00 PM EDT Telemedicine Cancer Center at [address] [place], [place] [address] Ronald Mills MD 240 [facility] Max A1 [place] [address] documented as of this encounter Visit Diagnoses Not on filedocumented in this encounter Additional Health Concerns Infection Onset Date Last Indicated Resolved Time COVID-19 03/05/2022 03/05/2022 03/15/2022 7:18 PM EDT documented as of this encounter Care Teams Stem Roller Or Crusher Operator Relationship Specialty Start Date End Date Caitlyn Bowie MD 3400 [facility] 1 [place] [address] PCP - General Internal Medicine 05/06/21 Henry Kelly MD Pulmonary Department [address] [place] [address], [address] [place] [address] Physician Pulmonary Disease 09/06/17 06/22/20 documented as of this encounter
--- OUTSIDE RECORDS SUMMARY | 2024-09-09 01:40 | XMS_ITS | Encounter Summary ---
Author Organization [facility] and [facility] Address [address] [place] [address] Care Team Providers Care Seed Mill Superintendent Name Role Phone Caitlyn Bowie MD Primary Care Provider [phone]- [phone] Encounter Details Date Type Department Care Team (Late st Contact Info) Description 04/27/2017 Scanned Document [facility] Health Information Management [address] [place] [address] External, Provider Social History Tobacco Use Types [...] Description 09/30/2024 8:30 PM EDT Procedure visit [facility] [address] [place] [address] [address] [place] [address] 10/31/2024 1:00 PM EDT Telemedicine Cancer Center at [facility] 240 [facility] Building [address] [place], [place] [address] Ronald Mills MD 240 [facility] A1 [place] [address] documented as of this encounter Visit Diagnoses Not on filedocumented in this encounter Additional Health Concerns Infection Onset Date Last Indicated Resolved Time COVID-19 03/05/2022 03/05/2022 03/15/2022 7:18 PM EDT documented as of this encounter Care Teams Seed Mill Superintendent Relationship Specialty Start Date End Date Caitlyn Bowie MD 3400 [facility] Max 1 [place] [address] PCP - General Internal Medicine 05/06/21 Henry Kelly MD Pulmonary Department 175 [facility], [address] [place] [address] Physician Pulmonary Disease 09/06/17 06/22/20 documented as of this encounter
--- OUTSIDE RECORDS SUMMARY | 2024-09-09 01:40 | XMS_ITS | Encounter Summary ---
Author Organization [facility] Address [address] [place] [address] Care Team Providers Care Southeast Regional Sales Manager Name Role Phone Caitlyn Bowie MD Primary Care Provider +1- [phone] Encounter Details Date Type Department Care Team (Late st Contact Info) Description 06/27/2019 Scanned Document Onco-Oncology Program at [address] [place] [address] Norma Renee MD [address] [place] [address] 2 [place] [phone] Social History Tobacco Use Types Packs/Day Years [...] Description 09/30/2024 8:30 PM EDT Procedure visit [facility] [address] [place] [address] 10/31/2024 1:00 PM EDT Telemedicine Cancer Center at [address] [place], [place] [address] Ronald Mills MD 240 [facility] Max A1 [place] [address] documented as of this encounter Visit Diagnoses Not on filedocumented in this encounter Additional Health Concerns Infection Onset Date Last Indicated Resolved Time COVID-19 03/05/2022 03/05/2022 03/15/2022 7:18 PM EDT Assessment Noted Time PHQ-9 Depression Total Score: 2 11/07/19 19 2:06 PM EDT documented as of this encounter Care Teams Southeast Regional Sales Manager Relationship Specialty Start Date End Date Caitlyn Bowie MD 3400 [facility] 1 [place] [address] PCP - General Internal Medicine 05/06/21 Henry Kelly MD Pulmonary Department [address] [place] [address], [address] [place] [address] Physician Pulmonary Disease 09/06/17 06/22/20 documented as of this encounter
--- OUTSIDE RECORDS SUMMARY | 2024-09-09 01:40 | XMS_ITS | Encounter Summary ---
Author Organization [facility] Address 20 [place] [address] Care Team Providers Care Gas Fitter Name Role Phone Caitlyn Bowie MD Primary Care Provider [phone]- [phone] Encounter Details Date Type Department Care Team (Late st Contact Info) Description 04/26/2017 Scanned Document Cardiovascular Medicine at [address] [place] [address] Norma Renee MD [address] [place] [phone] Social History Tobacco Use Types Packs/Day Years [...] Description 09/30/2024 8:30 PM EDT Procedure visit [facility] [address] [place] [address] [address] [place] [address] 10/31/2024 1:00 PM EDT Telemedicine Cancer Center at [facility] 240 [facility] [address] [place] [address] Ronald Mills MD 240 [facility] Max A1 [place] [address] documented as of this encounter Visit Diagnoses Not on filedocumented in this encounter Additional Health Concerns Infection Onset Date Last Indicated Resolved Time COVID-19 03/05/2022 03/05/2022 03/15/2022 7:18 PM EDT documented as of this encounter Care Teams Gas Fitter Relationship Specialty Start Date End Date Caitlyn Bowie MD 3400 [facility] 1 [place] [address] PCP - General Internal Medicine 05/06/21 Henry Kelly MD Pulmonary Department 175 [facility], [address] [place] [address] Physician Pulmonary Disease 09/06/17 06/22/20 documented as of this encounter
--- OUTSIDE RECORDS SUMMARY | 2024-09-09 01:40 | XMS_ITS | Encounter Summary ---
Author Organization [facility] Address [address] [place] [address] Care Team Providers Care Environmental Officer Name Role Phone Cristofer Hope MD Primary Care Provider Maria GuadalupevaVictorino Negrete MD Primary Care Provider Unavaila Sharon Rios Primary Care Provider Unava ilable Brennan Burnett MD Primary Care Provider Unavailab Hayden Montes MD Unavailable [phone] Pallavi Flood NP Unavailable [phone] Caitlyn Bowie MD Primary Care Provider Unava ilable Reason for Visit * Reason Onset Date Comments medication problems 10/23/2017 Encounter Details Date Type Department Care Team Description 10/23/2017 Telephone Pulmonology - [address] [place] [phone] Leslie Caro NP medication problems Social History Tobacco Use Types Packs/Day Years [...] encounter Miscellaneous Notes * Telephone Encounter - Leslie Caro NP - 10/23/2017 12:02 PM EDT sent * Telephone Encounter - Megan Pal - 10/23/2017 11:00 AM EDT [employer] is calling he said the qnasal is incorrect please call him to verify documented in this encounter Plan of Treatment Not on file documented as of this encounter Visit Diagnoses Not on filedocumented in this encounter Care Teams Environmental Officer Relationship Specialty Start Date End Date Cristofer Hope MD PCP - General Internal Medicine 05/16/17 12/20/17 Victorino Martin MD PCP - General Internal Medicine 12/21/17 08/01/18 Sharon Vides PCP - General Internal Medicine 08/02/18 05/26/20 Brennan Burnett MD PCP - General Internal Medicine 05/27/20 12/07/21 Caitlyn Bowie MD [address] [place] [address] PCP - General Internal Medicine 12/08/21 Hayden Shah MD [address] [place] [address] Specialist Cardiovascular Disease 09/01/20 Pallavi Flood NP [address] [place] [address] Cardiology 09/01/20 documented as of this encounter
--- OUTSIDE RECORDS SUMMARY | 2024-09-09 01:40 | XMS_ITS | Encounter Summary ---
Author Organization [facility] and [facility] Address [address] [place] [address] Care Team Providers Care Inspector Plumbing Name Role Phone Caitlyn Bowie MD Primary Care Provider +1- [phone] Encounter Details Date Type Department Care Team (Late st Contact Info) Description 02/21/2017 Scanned Document [facility] Health Information Management [address] [place] [address] External, Provider Social History Tobacco Use Types [...] Description 09/30/2024 8:30 PM EDT Procedure visit [facility] [address] [place] [address] [address] [place] [address] 10/31/2024 1:00 PM EDT [facility]icine [facility] [address] [facility] Building [address] [place], [place] [address] Ronald Mills MD 240 [facility] A1 [place] [phone] documented as of this encounter Procedures Procedure [...] as of this encounter Care Teams Inspector Plumbing Relationship Specialty Start Date End Date Caitlyn Bowie MD 3400 [facility] 1 [place] [address] PCP - General Internal Medicine 05/06/21 Henry Kelly MD Pulmonary Department 175 [facility], [address] [place] [address] Physician Pulmonary Disease 09/06/17 06/22/20 documented as of this encounter
--- OUTSIDE RECORDS SUMMARY | 2024-09-09 01:40 | XMS_ITS | Encounter Summary ---
Author Organization [facility] and [facility] Address [address] [place] [address] Care Team Providers Care Client Services Associate Name Role Phone Caitlyn Bowie MD Primary Care Provider +1- [phone] Encounter Details Date Type Department Care Team (Late st Contact Info) Description 09/07/2020 Scanned Document Cardiovascular Medicine at [address] [address] Norma Renee MD [address] [place] [phone] Social History Tobacco Use Types Packs/Day Years [...] Description 09/30/2024 8:30 PM EDT Procedure visit [facility] [address] [place] [address] [address] [place] [address] 10/31/2024 1:00 PM EDT Telemedicine Cancer Center at [address] [place], [place] [address] Ronald Mills MD 240 [facility] Max [address]1 [place] [address] documented as of this encounter Visit Diagnoses Not on filedocumented in this encounter Additional Health Concerns Infection Onset Date Last Indicated Resolved Time COVID-19 03/05/2022 03/05/2022 03/15/2022 7:18 PM EDT Assessment Noted Time PHQ-9 Depression Total Score: 2 11/07/19 19 2:06 PM EDT documented as of this encounter Care Teams Client Services Associate Relationship Specialty Start Date End Date Caitlyn Bowie MD [address] [address] PCP - General Internal Medicine 05/06/21 documented as of this encounter
--- OUTSIDE RECORDS SUMMARY | 2024-09-09 01:40 | XMS_ITS | Encounter Summary ---
Author Organization [facility] and [facility] Address [address] [place] [address] Care Team Providers Care Freelance Copywriter Name Role Phone Caitlyn Bowie MD Primary Care Provider +1- [phone] Encounter Details Date Type Department Care Team (Late st Contact Info) Description 07/01/2019 Scanned Document Onco-Oncology Program at [address] [place] [address] Norma Renee MD [address] [place] [address] 2 [place] [phone] Social History Tobacco Use Types Packs/Day Years [...] Description 09/30/2024 8:30 PM EDT Procedure visit [facility] [address] [place] [address] 10/31/2024 1:00 PM EDT Telemedicine Cancer Center at [address] [place], [place] [address] Ronald Mills MD 240 [facility] [address] [place] [address] documented as of this encounter Visit Diagnoses Not on filedocumented in this encounter Additional Health Concerns Infection Onset Date Last Indicated Resolved Time COVID-19 03/05/2022 03/05/2022 03/15/2022 7:18 PM EDT Assessment Noted Time PHQ-9 Depression Total Score: 2 11/07/19 19 2:06 PM EDT documented as of this encounter Care Teams Freelance Copywriter Relationship Specialty Start Date End Date Caitlyn Bowie MD 3400 [facility] 1 [place] [address] PCP - General Internal Medicine 05/06/21 Henry Kelly MD Pulmonary Department [address] [place] [address], [address] [place] [address] Physician Pulmonary Disease 09/06/17 06/22/20 documented as of this encounter
--- OUTSIDE RECORDS SUMMARY | 2024-09-09 01:40 | XMS_ITS | Encounter Summary ---
Author Organization [facility] Address [address] [place] [address] Care Team Providers Care Airplane Navigator Name Role Phone Caitlyn Bowie MD Primary Care Provider +1- [phone] Encounter Details Date Type Department Care Team (Late st Contact Info) Description 12/16/2016 Scanned Document [facility] Health Information Management [address] [place] [address] External, Provider Social History Tobacco Use Types [...] Description 09/30/2024 8:30 PM EDT Procedure visit [facility] [address] [place] [address] [address] [place] [address] 10/31/2024 1:00 PM EDT [facility] 240 [facility] Building [address] [place], [place] [address] Ronald Mills MD 240 [facility] A1 [place] [phone] documented as of this encounter Procedures Procedure [...] documented as of this encounter Care Teams Airplane Navigator Relationship Specialty Start Date End Date Caitlyn Bowie MD 3400 [facility] Max 1 [place] [address] PCP - General Internal Medicine 05/06/21 Henry Kelly MD Pulmonary Department 175 [facility], [address] [place] [address] Physician Pulmonary Disease 09/06/17 06/22/20 documented as of this encounter
--- OUTSIDE RECORDS SUMMARY | 2024-09-09 01:40 | XMS_ITS | Encounter Summary ---
Author Organization [facility] Address [address] [place] [address] Care Team Providers Care Hand Woodworking Sander Name Role Phone Victorino Martin MD Primary Care Provider Sharon Odonnell Primary Care Provider Brennan Castro MD Primary Care Provider Unavailab Hayden Montes MD Unavailable [phone] Pallavi Flood NP Unavailable +1- [phone] Caitlyn Bowie MD Primary Care Provider Johnathon shaver Encounter Details Date Type Department Care Team Description 07/12/2018 Refill Pulmonology [address] [place] [address] Henry Kelly MD Social History [...] on filedocumented in this encounter Care Teams Hand Woodworking Sander Relationship Specialty Start Date End Date Victorino Martin MD PCP - General Internal Medicine 12/21/17 08/01/18 Sharon Vides PCP - General Internal Medicine 08/02/18 05/26/20 Brennan Burnett MD PCP - General Internal Medicine 05/27/20 12/07/21 Caitlyn Bowie MD [address] [place] [address] PCP - General Internal Medicine 12/08/21 Hayden Shah MD [address] [place], [place] [phone] Specialist Cardiovascular Disease 09/01/20 Pallavi Flood NP [address] [place] [address] Cardiology 09/01/20 documented as of this encounter
--- OUTSIDE RECORDS SUMMARY | 2024-09-09 01:40 | XMS_ITS | Encounter Summary ---
Author Organization [facility] and [facility] Address [address] [place] [address] Care Team Providers Care Measurement Department Chief Clerk Name Role Phone Caitlyn Bowie MD Primary Care Provider +1- [phone] Encounter Details Date Type Department Care Team (Late st Contact Info) Description 01/28/2013 Scanned Document Thoracic Oncology Program at [address] [address] Solo Henry MD [address] [place] [phone] Social History Tobacco Use Types Packs/Day [...] Description 09/30/2024 8:30 PM EDT Procedure visit [facility] [address] [place] [address] [place] [address] 10/31/2024 1:00 PM EDT Telemedicine Cancer Center at [address] [place] [address] Ronald Mills MD [address] [place] [address] [phone] documented as of this encounter Visit Diagnoses Not on filedocumented in this encounter Additional Health Concerns Infection Onset Date Last Indicated Resolved Time COVID-19 03/05/2022 03/05/2022 03/15/2022 7:18 PM EDT documented as of this encounter Care Teams Measurement Department Chief Clerk Relationship Specialty Start Date End Date Caitlyn Bowie MD 3400 [facility] 1 [place] [address] PCP - General Internal Medicine 05/06/21 Henry Kelly MD Pulmonary Department 175 [facility], [address] [place] [address] Physician Pulmonary Disease 09/06/17 06/22/20 documented as of this encounter
--- OUTSIDE RECORDS SUMMARY | 2024-09-09 01:40 | XMS_ITS | Encounter Summary ---
Author Organization [facility] and [facility] Address [address] [place] [address] Care Team Providers Care Completion Manager Name Role Phone Caitlyn Bowie MD Primary Care Provider +1- [phone] Encounter Details Date Type Department Care Team (Late st Contact Info) Description 08/29/2019 Scanned Document Cancer Center at [address] [address] External, Provider Social History Tobacco Use Types [...] Description 09/30/2024 8:30 PM EDT Procedure visit [facility] [address] [place] [address] [address] [place] [address] 10/31/2024 1:00 PM EDT Telemedicine Cancer Center at [address] [place] [address] Ronald Mills MD [address] [address] documented as of this encounter [...] documented as of this encounter Care Teams Completion Manager Relationship Specialty Start Date End Date Caitlyn Bowie MD 3400 [facility] Max 1 [place] [address] PCP - General Internal Medicine 05/06/21 Henry Kelly MD Pulmonary Department [address] [place] [address], [address] [place] [address] Physician Pulmonary Disease 09/06/17 06/22/20 documented as of this encounter
--- OUTSIDE RECORDS SUMMARY | 2024-09-09 01:40 | XMS_ITS | Encounter Summary ---
Author Organization [facility] and [facility] Address [address] [place] [address] Care Team Providers Care Grill Attendant Name Role Phone Caitlyn Bowie MD Primary Care Provider +1- [phone] Encounter Details Date Type Department Care Team (Late st Contact Info) Description 01/28/2013 Scanned Document Thoracic Oncology Program at [address] [address] Solo Henry MD [address] [place] [phone] Social History Tobacco Use Types Packs/Day [...] Description 09/30/2024 8:30 PM EDT Procedure visit [facility] [address] [place] [address] [place] [address] 10/31/2024 1:00 PM EDT Telemedicine Cancer Center at [address] [place] [address] Ronald Mills MD [address] [place] [address] [phone] documented as of this encounter Visit Diagnoses Not on filedocumented in this encounter Additional Health Concerns Infection Onset Date Last Indicated Resolved Time COVID-19 03/05/2022 03/05/2022 03/15/2022 7:18 PM EDT documented as of this encounter Care Teams Grill Attendant Relationship Specialty Start Date End Date Caitlyn Bowie MD 3400 [facility] 1 [place] [address] PCP - General Internal Medicine 05/06/21 Henry Kelly MD Pulmonary Department 175 [facility], [address] [place] [address] Physician Pulmonary Disease 09/06/17 06/22/20 documented as of this encounter
--- OUTSIDE RECORDS SUMMARY | 2024-09-09 01:40 | XMS_ITS | Encounter Summary ---
Author Organization [facility] and [facility] Address [address] [place] [address] Care Team Providers Care Quality Facilitator Name Role Phone Caitlyn Bowie MD Primary Care Provider +1- [phone] Encounter Details Date Type Department Care Team (Late st Contact Info) Description 06/27/2019 Scanned Document Onco-Oncology Program at [address] [place] [address] Norma Renee MD [address] [place] [address] 2 [place] [phone] Social History Tobacco Use Types Packs/Day Years [...] 09/30/2024 8:30 PM EDT Procedure visit [facility] [address] [place] [address] 10/31/2024 1:00 PM EDT Telemedicine Cancer Center at [address] [place], [place] [address] Ronald Mills MD 240 [facility] Max A1 [place] [address] documented as of this encounter Visit Diagnoses Not on filedocumented in this encounter Additional Health Concerns Infection Onset Date Last Indicated Resolved Time COVID-19 03/05/2022 03/05/2022 03/15/2022 7:18 PM EDT Assessment Noted Time PHQ-9 Depression Total Score: 2 11/07/19 19 2:06 PM EDT documented as of this encounter Care Teams Quality Facilitator Relationship Specialty Start Date End Date Caitlyn Bowie MD 3400 [facility] 1 [place] [address] PCP - General Internal Medicine 05/06/21 Henry Kelly MD Pulmonary Department [address] [place] [address], [address] [place] [address] Physician Pulmonary Disease 09/06/17 06/22/20 documented as of this encounter
--- OUTSIDE RECORDS SUMMARY | 2024-09-09 01:40 | XMS_ITS | Encounter Summary ---
Author Organization [facility] and [facility] Address [address] [place] [address] Care Team Providers Care Department Administrator Name Role Phone Caitlyn Bowie MD Primary Care Provider +1- [phone] Encounter Details Date Type Department Care Team (Late st Contact Info) Description 12/16/2016 Scanned Document [facility] Health Information Management [address] [place] [address] External, Provider Social History Tobacco Use Types [...] Description 09/30/2024 8:30 PM EDT Procedure visit [facility] [address] [place] [address] [address] [place] [address] 10/31/2024 1:00 PM EDT Telemedicine Cancer Center at [facility] [address] [facility] Building [address] [place], [place] [address] Ronald Mills MD 240 [facility] A1 [place] [address] documented as of this encounter Procedures Procedure [...] documented as of this encounter Care Teams Department Administrator Relationship Specialty Start Date End Date Caitlyn Bowie MD 3400 [facility] 1 [place] [address] PCP - General Internal Medicine 05/06/21 Henry Kelly MD Pulmonary Department 175 [facility], [address] [place] [address] Physician Pulmonary Disease 09/06/17 06/22/20 documented as of this encounter
--- OUTSIDE RECORDS SUMMARY | 2024-09-09 01:40 | XMS_ITS | Encounter Summary ---
Author Organization [facility] and [facility] Address [address] [place] [address] Care Team Providers Care Hand Therapist Name Role Phone Caitlyn Bowie MD Primary Care Provider +1- [phone] Encounter Details Date Type Department Care Team (Late st Contact Info) Description 07/12/2019 Scanned Document Onco-Oncology Program at [address] [place] [address] Norma Renee MD [address] [place] [address] 2 [place] [phone] Social History Tobacco Use Types Packs/Day Years [...] Description 09/30/2024 8:30 PM EDT Procedure visit [facility] [address] [place] [address] 10/31/2024 1:00 PM EDT Telemedicine Cancer Center at [address] [place], [place] [address] Ronald Mills MD 240 [facility] Max [address]1 [place] [address] documented as of this encounter Visit Diagnoses Not on filedocumented in this encounter Additional Health Concerns Infection Onset Date Last Indicated Resolved Time COVID-19 03/05/2022 03/05/2022 03/15/2022 7:18 PM EDT Assessment Noted Time PHQ-9 Depression Total Score: 2 11/07/19 19 2:06 PM EDT documented as of this encounter Care Teams Hand Therapist Relationship Specialty Start Date End Date Caitlyn Bowie MD [address]00 [facility] 1 [place] [address] PCP - General Internal Medicine 05/06/21 Henry Kelly MD Pulmonary Department [address] [place] [address], [address] [place] [address] Physician Pulmonary Disease 09/06/17 06/22/20 documented as of this encounter
--- OUTSIDE RECORDS SUMMARY | 2024-09-09 01:41 | XMS_ITS | Encounter Summary ---
Author Organization [facility] and [facility] Address [address] [place] [address] Care Team Providers Care Domestic Technician Name Role Phone Caitlyn Bowie MD Primary Care Provider +1- [phone] Encounter Details Date Type Department Care Team (Late st Contact Info) Description 03/11/2021 Scanned Document INTERFACE DEFAULT [address] [place] [phone] System, Provider Not In Social History Tobacco [...] Description 09/30/2024 8:30 PM EDT Procedure visit [facility] [address] [place] [address] [address] [place] [address] 10/31/2024 1:00 PM EDT Telemedicine Cancer Center at [facility] 240 [facility] [address] [place] [address] Ronald Mills MD 240 [facility] A1 [place] [address] documented as of this encounter Procedures Procedure [...] documented as of this encounter Care Teams Domestic Technician Relationship Specialty Start Date End Date Caitlyn Bowie MD [address] [address] PCP - General Internal Medicine 05/06/21 documented as of this encounter
--- OUTSIDE RECORDS SUMMARY | 2024-09-09 01:41 | XMS_ITS | Encounter Summary ---
Author Organization [facility] Address [address] [place] [address] Care Team Providers Care Chief Diversity Officer Name Role Phone Victorino Martin MD Primary Care Provider UnavailSharon Kimbrough Primary Care Provider Unava ilable Brennan Burnett MD Primary Care Provider Unavailab Hayden Montes MD Unavailable [phone] Pallavi Flood NP Unavailable [phone]- [phone] Caitlyn Bowie MD Primary Care Provider Unava ilable Reason for Visit * Reason Onset Date Comments other 02/06/2018 Encounter Details Date Type Department Care Team Description 02/06/2018 Telephone Pulmonology - [address] [place] [address] Henry Kelly MD other Social [...] filedocumented in this encounter Care Teams Chief Diversity Officer Relationship Specialty Start Date End Date Victorino Martin MD PCP - General Internal Medicine 12/21/17 08/01/18 Sharon Vides PCP - General Internal Medicine 08/02/18 05/26/20 Brennan Burnett MD PCP - General Internal Medicine 05/27/20 12/07/21 Caitlyn Bowie MD [address] [place] [address] PCP - General Internal Medicine 12/08/21 Hayden Shah MD [address] [place] [address] Specialist Cardiovascular Disease 09/01/20 Pallavi Flood NP [address] [place] [address] Cardiology 09/01/20 documented as of this encounter
--- OUTSIDE RECORDS SUMMARY | 2024-09-09 01:41 | XMS_ITS | Encounter Summary ---
Author Organization [facility] and [facility] Address [address] [place] [address] Care Team Providers Care Private Branch Exchange Installer Name Role Phone Caitlyn Bowie MD Primary Care Provider +1- [phone] Encounter Details Date Type Department Care Team (Late st Contact Info) Description 03/01/2021 Scanned Document INTERFACE DEFAULT [address] [place] [address] System, Provider Not In Social History Tobacco [...] Description 09/30/2024 8:30 PM EDT Procedure visit [facility] [address] [place] [address] [address] [place] [address] 10/31/2024 1:00 PM EDT Telemedicine Cancer Center at [facility] 240 [facility] [address] [place] [address] Ronald Mills MD 240 [facility] A1 [place] [address] documented as of this encounter Visit Diagnoses Not on filedocumented in this encounter Additional Health Concerns Infection Onset Date Last Indicated Resolved Time COVID-19 03/05/2022 03/05/2022 03/15/2022 7:18 PM EDT Assessment Noted Time PHQ-9 Depression Total Score: 2 11/07/19 19 2:06 PM EDT documented as of this encounter Care Teams Private Branch Exchange Installer Relationship Specialty Start Date End Date Caitlyn Bowie MD [address] [address] PCP - General Internal Medicine 05/06/21 documented as of this encounter
--- OUTSIDE RECORDS SUMMARY | 2024-09-09 01:41 | XMS_ITS | Encounter Summary ---
Author Organization [facility] Address [address] [place] [address] Care Team Providers Care Ruling Machine Set Up Operator Name Role Phone Brennan Burnett MD Primary Care Provider Unavailab Hayden Montes MD Unavailable [phone] Pallavi Flood NP Unavailable +1- [phone] Caitlyn Bowie MD Primary Care Provider Unava ilable Encounter Details Date Type Department Care Team Description 09/15/2020 [facility] Medical Records [address] [place] [address] Social History Tobacco Use Types Packs/Day Years [...] on filedocumented in this encounter Care Teams Ruling Machine Set Up Operator Relationship Specialty Start Date End Date Brennan Burnett MD PCP - General Internal Medicine 05/27/20 12/07/21 Caitlyn Bowie MD [address] [place] [address] PCP - General Internal Medicine 12/08/21 Hayden Shah MD [address] [place] [address] Specialist Cardiovascular Disease 09/01/20 Pallavi Flood NP [address] [place] [address] Cardiology 09/01/20 documented as of this encounter
--- OUTSIDE RECORDS SUMMARY | 2024-09-09 01:41 | XMS_ITS | Encounter Summary ---
Author Organization [facility] and [facility] Address [address] [place] [address] Care Team Providers Care Infrastructure Administrator Name Role Phone Caitlyn Bowie MD Primary Care Provider +1- [phone] Encounter Details Date Type Department Care Team (Late st Contact Info) Description 02/28/2021 Scanned Document INTERFACE DEFAULT [address] [place] [address] System, Provider Not In Social History Tobacco [...] Description 09/30/2024 8:30 PM EDT Procedure visit [facility] [address] [place] [address] [address] [place] [address] 10/31/2024 1:00 PM EDT Telemedicine Cancer Center at [facility] 240 [facility] [address] [place] [address] Ronald Mills MD 240 [facility] [address]1 [place] [address] documented as of this encounter Procedures Procedure [...] documented as of this encounter Care Teams Infrastructure Administrator Relationship Specialty Start Date End Date Caitlyn Bowie MD [facility] [address] [address] PCP - General Internal Medicine 05/06/21 documented as of this encounter
--- OUTSIDE RECORDS SUMMARY | 2024-09-09 01:41 | XMS_ITS | Encounter Summary ---
Author Organization [facility] and [facility] Address [address] [place] [address] Care Team Providers Care Commutator Repairer Name Role Phone Caitlyn Bowie MD Primary Care Provider +1- [phone] Encounter Details Date Type Department Care Team (Late st Contact Info) Description 04/22/2021 Scanned Document INTERFACE DEFAULT [address] [place] [address] System, Provider Not In Social History Tobacco [...] Description 09/30/2024 8:30 PM EDT Procedure visit [facility] [address] [place] [address] [address] [place] [address] 10/31/2024 1:00 PM EDT Telemedicine Cancer [facility] at [facility] [address] [facility] Building [address] [place] [address] Ronald Mills MD 240 [facility] A1 [place] [address] documented as of this encounter Procedures Procedure [...] documented as of this encounter Care Teams Commutator Repairer Relationship Specialty Start Date End Date Caitlyn Bowie MD [address] [address] PCP - General Internal Medicine 05/06/21 documented as of this encounter
--- OUTSIDE RECORDS SUMMARY | 2024-09-09 01:41 | XMS_ITS | Encounter Summary ---
Author Organization [facility] and [facility] Address [address] [place] [address] Care Team Providers Care Corporate Security Manager Name Role Phone Caitlyn Bowie MD Primary Care Provider +1- [phone] Encounter Details Date Type Department Care Team (Late st Contact Info) Description 03/23/2021 Scanned Document INTERFACE DEFAULT [address] [place] [address] System, Provider Not In Social History Tobacco [...] Description 09/30/2024 8:30 PM EDT Procedure visit [facility] [address] [place] [address] [address] [place] [address] 10/31/2024 1:00 PM EDT Telemedicine Cancer Center at [facility] 240 [facility] [address] [place] [address] Ronald Mills MD 240 [facility] [address] [place] [address] documented as of this encounter Procedures Procedure [...] as of this encounter Care Teams Corporate Security Manager Relationship Specialty Start Date End Date Caitlyn Bowie MD [facility] [address] [address] PCP - General Internal Medicine 05/06/21 documented as of this encounter
--- OUTSIDE RECORDS SUMMARY | 2024-09-09 01:41 | XMS_ITS | Encounter Summary ---
Author Organization [facility] and [facility] Address [address] [place] [address] Care Team Providers Care Lease Administration Analyst Name Role Phone Caitlyn Bowie MD Primary Care Provider +1- [phone] Encounter Details Date Type Department Care Team (Late st Contact Info) Description 04/16/2021 Scanned Document INTERFACE DEFAULT [address] [place] [address] System, Provider Not In Social History Tobacco [...] Description 09/30/2024 8:30 PM EDT Procedure visit [facility] [address] [place] [address] [address] [place] [address] 10/31/2024 1:00 PM EDT Telemedicine Cancer Center at [facility] 240 [facility] Building [address] [place] [address] Ronald Mills MD 240 [facility] A1 [place] [address] documented as of this encounter [...] documented as of this encounter Care Teams Lease Administration Analyst Relationship Specialty Start Date End Date Caitlyn Bowie MD [address] [address] PCP - General Internal Medicine 05/06/21 documented as of this encounter
--- OUTSIDE RECORDS SUMMARY | 2024-09-09 01:41 | XMS_ITS | Encounter Summary ---
Author Organization [facility] Address [address] [place] [address] Care Team Providers Care Liquid Yeast Supervisor Name Role Phone Victorino Martin MD Primary Care Provider Sharon Odonnell Primary Care Provider Brennan Castro MD Primary Care Provider UnavailHayden Fernandez MD Unavailable [phone] Pallavi Flood NP Unavailable +1- [phone] Caitlyn Bowie MD Primary Care Provider Johnathon shaver Encounter Details Date Type Department Care Team Description 01/22/2018 Life Insurance Actuary Report Medical Records [address] [place] [address] Abstract, Provider Social History Tobacco Use Types [...] on filedocumented in this encounter Care Teams Liquid Yeast Supervisor Relationship Specialty Start Date End Date Victorino Martin MD PCP - General Internal Medicine 12/21/17 08/01/18 Sharon Vides PCP - General Internal Medicine 08/02/18 05/26/20 Brennan Burnett MD PCP - General Internal Medicine 05/27/20 12/07/21 Caitlyn Bowie MD [address] [place] [address] PCP - General Internal Medicine 12/08/21 Hayden Shah MD [address] [place] [phone] Specialist Cardiovascular Disease 09/01/20 Pallavi Flood NP [address] [place], [place] [phone] Cardiology 09/01/20 documented as of this encounter
--- OUTSIDE RECORDS SUMMARY | 2024-09-09 01:41 | XMS_ITS | Encounter Summary ---
Author Organization [facility] and [facility] Address [address] [place] [address] Care Team Providers Care Wastewater Analyst Name Role Phone Caitlyn Bowie MD Primary Care Provider +1- [phone] Encounter Details Date Type Department Care Team (Late st Contact Info) Description 04/21/2021 Scanned Document INTERFACE DEFAULT [address] [place] [address] System, Provider Not In Social History Tobacco [...] Description 09/30/2024 8:30 PM EDT Procedure visit [facility] [address] [place] [address] [address] [place] [address] 10/31/2024 1:00 PM EDT Telemedicine Cancer [facility] at [facility] 240 [facility] Building [address] [place] [address] Ronald Mills MD 240 [facility] A1 [place] [address] documented as of this encounter Procedures Procedure [...] documented as of this encounter Care Teams Wastewater Analyst Relationship Specialty Start Date End Date Caitlyn Bowie MD [address] [address] PCP - General Internal Medicine 05/06/21 documented as of this encounter
--- OUTSIDE RECORDS SUMMARY | 2024-09-09 01:41 | XMS_ITS | Encounter Summary ---
Author Organization [facility] and [facility] Address [address] [place] [address] Care Team Providers Care Supervisor Paint Roller Covers Name Role Phone Caitlyn Bowie MD Primary Care Provider +1- [phone] Encounter Details Date Type Department Care Team (Late st Contact Info) Description 02/24/2021 Scanned Document INTERFACE DEFAULT [address] [place] [address] System, Provider Not In Social History Tobacco [...] Description 09/30/2024 8:30 PM EDT Procedure visit [facility] [address] [place] [address] [address] [place] [address] 10/31/2024 1:00 PM EDT Telemedicine Cancer Center at [facility] 240 [facility] [address] [place] [address] Ronald Mills MD 240 [facility] A1 [place] [address] documented as of this encounter [...] as of this encounter Care Teams Supervisor Paint Roller Covers Relationship Specialty Start Date End Date Caitlyn Bowie MD [address] [address] PCP - General Internal Medicine 05/06/21 documented as of this encounter
--- OUTSIDE RECORDS SUMMARY | 2024-09-09 01:41 | XMS_ITS | Encounter Summary ---
Author Organization [facility] and [facility] Address [address] [place] [address] Care Team Providers Care Road Roller Engineer Name Role Phone Caitlyn Bowie MD Primary Care Provider +1- [phone] Encounter Details Date Type Department Care Team (Late st Contact Info) Description 03/24/2021 Scanned Document INTERFACE DEFAULT [address] [place] [address] System, Provider Not In Social History Tobacco [...] Description 09/30/2024 8:30 PM EDT Procedure visit [facility] [address] [place] [address] [address] [place] [address] 10/31/2024 1:00 PM EDT Telemedicine [facility] at [facility] [address] [facility] [address] [place] [address] Ronald Mills MD 240 [facility] A1 [place] [address] documented as of this encounter Visit Diagnoses Not on filedocumented in this encounter Additional Health Concerns Infection Onset Date Last Indicated Resolved Time COVID-19 03/05/2022 03/05/2022 03/15/2022 7:18 PM EDT Assessment Noted Time PHQ-9 Depression Total Score: 2 11/07/19 19 2:06 PM EDT documented as of this encounter Care Teams Road Roller Engineer Relationship Specialty Start Date End Date Caitlyn Bowie MD [address] [address] PCP - General Internal Medicine 05/06/21 documented as of this encounter
--- OUTSIDE RECORDS SUMMARY | 2024-09-09 01:41 | XMS_ITS | Encounter Summary ---
Author Organization [facility] and [facility] Address [address] [place] [address] Care Team Providers Care Director Of Student Aid Name Role Phone Caitlyn Bowie MD Primary Care Provider +1- [phone] Encounter Details Date Type Department Care Team (Late st Contact Info) Description 02/25/2021 Scanned Document INTERFACE DEFAULT [address] [place] [address] System, Provider Not In Social History Tobacco [...] Description 09/30/2024 8:30 PM EDT Procedure visit [facility] [address] [place] [address] [address] [place] [address] 10/31/2024 1:00 PM EDT Telemedicine [facility] at [facility] 240 [facility] Building [address] [place] [address] Ronald Mills MD 240 [facility] A1 [place] [address] documented as of this encounter Procedures Procedure [...] of this encounter Care Teams Director Of Student Aid Relationship Specialty Start Date End Date Caitlyn Bowie MD [address] [place] [address] PCP - General Internal Medicine 05/06/21 documented as of this encounter
--- OUTSIDE RECORDS SUMMARY | 2024-09-09 01:41 | XMS_ITS | Encounter Summary ---
Author Organization [facility] Address [address] [place] [address] Care Team Providers Care Machine Crater Name Role Phone Victorino Martin MD Primary Care Provider UnavailSharon Kimbrough Primary Care Provider Unava ilable Brennan Burnett MD Primary Care Provider Unavailab Hayden Montes MD Unavailable [phone] Pallavi Flood NP Unavailable [phone]- [phone] Caitlyn Bowie MD Primary Care Provider Unava chhaya Reason for Visit * Reason Comments E-prescribe Rx Request Encounter Details Date Type Department Care Team Description 04/26/2018 Refill Pulmonology [address] [place] [address] Henry Kelly MD E-prescribe Rx [...] NO Patients current insurance carrier is: Payor: MEDICARE-[employer] / [place] / Product Type: MEDICARE [id number] documented in this encounter Plan of Treatment Not on file documented as of this encounter Visit Diagnoses Not on filedocumented in this encounter Care Teams Machine Crater Relationship Specialty Start Date End Date Victorino Martin MD PCP - General Internal Medicine 12/21/17 08/01/18 Sharon Vides PCP - General Internal Medicine 08/02/18 05/26/20 Brennan Burnett MD PCP - General Internal Medicine 05/27/20 12/07/21 Caitlyn [address] MD [address] [place] [address] PCP - General Internal Medicine 12/08/21 Hayden Shah MD [address] [place] [phone] Specialist Cardiovascular Disease 09/01/20 Pallavi Flood NP [address] [place] [address] Cardiology 09/01/20 documented as of this encounter
--- OUTSIDE RECORDS SUMMARY | 2024-09-09 01:41 | XMS_ITS | Encounter Summary ---
Author Organization [facility] and [facility] Address [address] [place] [address] Care Team Providers Care Pharmacy Tech Customer Service Name Role Phone Caitlyn Bowie MD Primary Care Provider +1- [phone] Encounter Details Date Type Department Care Team (Late st Contact Info) Description 04/12/2021 Scanned Document INTERFACE DEFAULT [address] [place] [address] System, Provider Not In Social History Tobacco [...] Description 09/30/2024 8:30 PM EDT Procedure visit [facility] [address] [place] [address] [address] [place] [address] 10/31/2024 1:00 PM EDT Telemedicine Cancer Center at [facility] 240 [facility] [address] [place] [address] Ronald Mills MD 240 [facility] A1 [place] [address] documented as of this encounter Procedures Procedure [...] as of this encounter Care Teams Pharmacy Tech Customer Service Relationship Specialty Start Date End Date Caitlyn Bowie MD [facility] [address] [address] PCP - General Internal Medicine 05/06/21 documented as of this encounter
--- OUTSIDE RECORDS SUMMARY | 2024-09-09 01:41 | XMS_ITS | Encounter Summary ---
Author Organization [facility] Address [address] [place] [address] Care Team Providers Care Speaker Wirer Name Role Phone Sharon Vides Primary Care Provider Brennan Castro MD Primary Care Provider Unavailab Hayden Montes MD Unavailable [phone] Pallavi Flood NP Unavailable [phone]- [phone] Caitlyn Bowie MD Primary Care Provider Johnathon shaver Encounter Details Date Type Department Care Team Description 07/15/2019 Release of Information Medical Records [address] [place] [address] Abstract, Provider Social History Tobacco Use Types [...] on filedocumented in this encounter Care Teams Speaker Wirer Relationship Specialty Start Date End Date Sharon Vides PCP - General Internal Medicine 08/02/18 05/26/20 Brennan Burnett MD PCP - General Internal Medicine 05/27/20 12/07/21 Caitlyn Bowie MD [address] [place] [address] PCP - General Internal Medicine 12/08/21 Hayden Shah MD [address] [place] [address] Specialist Cardiovascular Disease 09/01/20 Pallavi Flood NP [address] [place] [address] Cardiology 09/01/20 documented as of this encounter
--- OUTSIDE RECORDS SUMMARY | 2024-09-09 01:41 | XMS_ITS | Encounter Summary ---
Author Organization [facility] and [facility] Address [address] [place] [address] Care Team Providers Care Laser Machine Operator Name Role Phone Caitlyn Bowie MD Primary Care Provider +1- [phone] Encounter Details Date Type Department Care Team (Late st Contact Info) Description 01/26/2018 Scanned Document [facility] Health Information Management [address] [place] [address] External, Provider Social History Tobacco Use Types [...] Care Team (Late Contact Info) Description 09/30/2024 8:30 PM EDT Procedure visit [facility] [address] [place] [address] [address] [place] [address] 10/31/2024 1:00 PM EDT Telemedicine Cancer Center at [facility] 240 [facility] Building [address] [place], [place] [address] Ronald Mills MD 240 [facility] A1 [place] [address] documented as of this encounter Visit Diagnoses Not on filedocumented in this encounter Additional Health Concerns Infection Onset Date Last Indicated Resolved Time COVID-19 03/05/2022 03/05/2022 03/15/2022 7:18 PM EDT documented as of this encounter Care Teams Laser Machine Operator Relationship Specialty Start Date End Date Caitlyn Bowie MD 3400 [facility] 1 [place] [address] PCP - General Internal Medicine 05/06/21 Henry Kelly MD Pulmonary Department 175 [facility], [address] [place] [address] Physician Pulmonary Disease 09/06/17 06/22/20 documented as of this encounter
--- OUTSIDE RECORDS SUMMARY | 2024-09-09 01:41 | XMS_ITS | Encounter Summary ---
Author Organization [facility] and [facility] Address [address] [place] [address] Care Team Providers Care Billing Collections Specialist Name Role Phone Caitlyn Bowie MD Primary Care Provider +1- [phone] Encounter Details Date Type Department Care Team (Late st Contact Info) Description 08/09/2017 Scanned Document Cardiovascular Medicine at [address] [address] System, Provider Not In Social History Tobacco [...] Description 09/30/2024 8:30 PM EDT Procedure visit [facility] [address] [place] [address] [address] [place] [address] 10/31/2024 1:00 PM EDT Telemedicine Cancer Center at [address] [place], [place] [phone] Ronald Mills MD [address] [place] [address] [address] [place] [address] documented as of this encounter [...] as of this encounter Care Teams Billing Collections Specialist Relationship Specialty Start Date End Date Caitlyn Bowie MD 3400 [facility] 1 [place] [address] PCP - General Internal Medicine 05/06/21 Henry Kelly MD Pulmonary Department 175 [facility], [address] [place] [address] Physician Pulmonary Disease 09/06/17 06/22/20 documented as of this encounter
--- OUTSIDE RECORDS SUMMARY | 2024-09-09 01:41 | XMS_ITS | Encounter Summary ---
Author Organization [facility] Address [address] [place] [address] Care Team Providers Care Manager Diversity Name Role Phone Brennan Burnett MD Primary Care Provider Unavailab Hayden Montes MD Unavailable [phone] Pallavi Flood NP Unavailable [phone]- [phone] Caitlyn Bowie MD Primary Care Provider Unava ilable Encounter Details Date Type Department Care Team Description 06/02/2020 Capital Campaign Fundraiser Report Medical Records [address] [place] [address] Abstract, Provider Social History Tobacco Use Types [...] filedocumented in this encounter Care Teams Manager Diversity Relationship Specialty Start Date End Date Brennan Burnett MD PCP - General Internal Medicine 05/27/20 12/07/21 Caitlyn Bowie MD [address] [place] [address] PCP - General Internal Medicine 12/08/21 Hayden Shah MD [address] [place] [address] Specialist Cardiovascular Disease 09/01/20 Pallavi Flood NP [address] [place] [address] [phone] Cardiology 09/01/20 documented as of this encounter
--- OUTSIDE RECORDS SUMMARY | 2024-09-09 01:41 | XMS_ITS | Encounter Summary ---
Author Organization [facility] and [facility] Address [address] [place] [address] Care Team Providers Care Curriculum Supervisor Name Role Phone Caitlyn Bowie MD Primary Care Provider +1- [phone] Encounter Details Date Type Department Care Team (Late st Contact Info) Description 04/11/2021 Scanned Document INTERFACE DEFAULT [address] [place] [address] System, Provider Not In Social History Tobacco [...] Description 09/30/2024 8:30 PM EDT Procedure visit [facility] [address] [place] [address] [address] [place] [address] 10/31/2024 1:00 PM EDT Telemedicine Cancer Center at [facility] 240 [facility] [address] [place] [address] Ronald Mills MD 240 [facility] A1 [place] [address] documented as of this encounter Procedures Procedure [...] documented as of this encounter Care Teams Curriculum Supervisor Relationship Specialty Start Date End Date Caitlyn Bowie MD [facility] [address] [address] PCP - General Internal Medicine 05/06/21 documented as of this encounter
--- OUTSIDE RECORDS SUMMARY | 2024-09-09 01:41 | XMS_ITS | Encounter Summary ---
Author Organization [facility] Address [address] [place] [address] Care Team Providers Care Orientation And Mobility Instructor Name Role Phone Caitlyn Bowie MD Primary Care Provider +1- [phone] Encounter Details Date Type Department Care Team (Late st Contact Info) Description 03/16/2021 Scanned Document INTERFACE DEFAULT [address] [place] [address] System, Provider Not In Social History Tobacco [...] Description 09/30/2024 8:30 PM EDT Procedure visit [facility] [address] [place] [address] [address] [place] [address] 10/31/2024 1:00 PM EDT Telemedicine Cancer Center at [facility] 240 [facility] [address] [place] [address] Ronald Mills MD 240 [facility] A1 [place] [address] documented as of this encounter Visit Diagnoses Not on filedocumented in this encounter Additional Health Concerns Infection Onset Date Last Indicated Resolved Time COVID-19 03/05/2022 03/05/2022 03/15/2022 7:18 PM EDT Assessment Noted Time PHQ-9 Depression Total Score: 2 11/07/19 19 2:06 PM EDT documented as of this encounter Care Teams Orientation And Mobility Instructor Relationship Specialty Start Date End Date Caitlyn Bowie MD [address] [address] PCP - General Internal Medicine 05/06/21 documented as of this encounter
--- OUTSIDE RECORDS SUMMARY | 2024-09-09 01:41 | XMS_ITS | Encounter Summary ---
Author Organization [facility] Address [address] [place] [address] Care Team Providers Care Solar System Designer Name Role Phone Brennan Burnett MD Primary Care Provider Unavailab Hayden Montes MD Unavailable [phone] Pallavi Flood NP Unavailable [phone]- [phone] Caitlyn Bowie MD Primary Care Provider Unava ilable Encounter Details Date Type Department Care Team Description 08/25/2020 Partnership Development Manager Report Medical Records [address] [place] [address] Abstract, Provider Social History Tobacco Use Types [...] on filedocumented in this encounter Care Teams Solar System Designer Relationship Specialty Start Date End Date Brennan Burnett MD PCP - General Internal Medicine 05/27/20 12/07/21 Caitlyn Bowie MD [address] [place] [address] PCP - General Internal Medicine 12/08/21 Hayden Shah MD [address] [place] [address] Specialist Cardiovascular Disease 09/01/20 Pallavi Flood NP [address] [place] [address] Cardiology 09/01/20 documented as of this encounter
--- OUTSIDE RECORDS SUMMARY | 2024-09-09 01:41 | XMS_ITS | Encounter Summary ---
Author Organization [facility] and [facility] Address [address] [place] [address] Care Team Providers Care Mastic Man Name Role Phone Caitlyn Bowie MD Primary Care Provider +1- [phone] Encounter Details Date Type Department Care Team (Late st Contact Info) Description 03/14/2021 Scanned Document INTERFACE DEFAULT [address] [place] [address] System, Provider Not In Social History Tobacco [...] Description 09/30/2024 8:30 PM EDT Procedure visit [facility] [address] [place] [address] [address] [place] [address] 10/31/2024 1:00 PM EDT Telemedicine [facility] at [facility] 240 [facility] [address] [place] [address] Ronald Mills MD 240 [facility] A1 [place] [address] documented as of this encounter [...] documented as of this encounter Care Teams Mastic Man Relationship Specialty Start Date End Date Caitlyn Bowie MD [address] [address] PCP - General Internal Medicine 05/06/21 documented as of this encounter
--- OUTSIDE RECORDS SUMMARY | 2024-09-09 01:41 | XMS_ITS | Encounter Summary ---
Author Organization [facility] Address [address] [place] [address] Care Team Providers Care Metal Fabricating Supervisor Name Role Phone Victorino Martin MD Primary Care Provider UnavailSharon Kimbrough Primary Care Provider Unava ilable Brennan Burnett MD Primary Care Provider Unavailab Hayden Montes MD Unavailable Pallavi Flood NP Unavailable +1- [phone] Caitlyn Bowie MD Primary Care Provider Unava chhaya Reason for Visit * Reason Onset Date Comments Medical Records 05/10/2018 Encounter Details Date Type Department Care Team Description 05/10/2018 Telephone Pulmonology - [address] [place] [address] Henry Kelly MD Medical Records [...] the one that she had done at [facility] was not in the records, nor was the information about all the times that she had pnuemonia. She wants to make sure thatyou meant to give her two copies of the same procedure. documented in this encounter Plan of Treatment Not on file documented as of this encounter Visit Diagnoses Not on filedocumented in this encounter Care Teams Metal Fabricating Supervisor Relationship Specialty Start Date End Date Victorino Martin MD PCP - General Internal Medicine 12/21/17 08/01/18 Sharon Vides PCP - General Internal Medicine 08/02/18 05/26/20 Brennan Burnett MD PCP - General Internal Medicine 05/27/20 12/07/21 Caitlyn Bowie MD [address] [place] [address] PCP - General Internal Medicine 12/08/21 Hayden Shah MD [address] [place] [address] Specialist Cardiovascular Disease 09/01/20 Pallavi Flood NP [address] [place] [address] Cardiology 09/01/20 documented as of this encounter
--- OUTSIDE RECORDS SUMMARY | 2024-09-09 01:41 | XMS_ITS | Encounter Summary ---
Author Organization [facility] Address [address] [place] [address] Care Team Providers Care Skate Hop Name Role Phone Caitlyn Bowie MD Primary Care Provider +1- [phone] Encounter Details Date Type Department Care Team (Late st Contact Info) Description 02/15/2021 Scanned Document INTERFACE DEFAULT [address] [place] [address] System, Provider Not In Social History Tobacco [...] Description 09/30/2024 8:30 PM EDT Procedure visit [facility] [address] [place] [address] [address] [place] [phone] 10/31/2024 1:00 PM EDT Telemedicine [facility] at [facility] [address] [facility] [address] [place] [address] Ronald Mills MD [address] [facility] [address] [place] [phone] documented as of this encounter Visit Diagnoses Not on filedocumented in this encounter Additional Health Concerns Infection Onset Date Last Indicated Resolved Time COVID-19 03/05/2022 03/05/2022 03/15/2022 7:18 PM EDT Assessment Noted Time PHQ-9 Depression Total Score: 2 11/07/19 19 2:06 PM EDT documented as of this encounter Care Teams Skate Hop Relationship Specialty Start Date End Date Caitlyn Bowie MD [address] [address] PCP - General Internal Medicine 05/06/21 documented as of this encounter
--- OUTSIDE RECORDS SUMMARY | 2024-09-09 01:41 | XMS_ITS | Clinical Summary ---
Author Organization [address] Address [address] [place] [address] Phone Care Team Providers Care Weapons Mechanic Name Role Phone Caitlyn Bowie MD Primary Care Provider +1- [phone] Allergies Active Allergy Reactions Criticality Noted Date [...] Type Department Care Team Description 08/30/2024 Abstract [facility] [address] [place] [phone] Adalgisa Whitney MD 07/15/2024 Telephone [facility] at [address] [address] Ronald Mills MD Triage from Last 3 [...] Description 09/30/2024 8:30 PM EDT Procedure visit [facility] [address] [place] [address] [address] [place] [address] 10/31/2024 1:00 PM EDT Telemedicine [facility] Center at [facility] [address] [facility] [address] [place], [place] [address] Ronald Mills MD [address] [facility] [address] [place] [phone] Health Maintenance Due Date Last Done Comments [...] - 144 mmol/L 04/05/2022 1:43 PM EDT [facility]PART[facility] OF [facility] MEDICINE [facility] Potassium 4.7 3.3 - 5.3 mmol/L 04/05/2022 1:43 PM EDT [facility]IC[facility] Chloride 100 98 - 107 mmol/L 04/05/2022 1:43 PM EDT [facility]PART[facility] MEDICINE [facility] CO2 30 20 - 30 mmol/L 04/05/2022 1:43 PM EDT [facility]IC[facility] Anion Gap 8 7 - 17 04/05/2022 1:43 PM EDT [facility]ICINE [facility] Glucose 115(H) 70 - 100 mg/dL 04/05/2022 1:43 PM EDT [facility]PART[facility] OF [facility]ORY MEDICINE [facility] BUN 16 8 - 23 mg/dL 04/05/2022 1:43 PM EDT [facility] Creatinine 0.89 0.40 - 1.30 mg/dL 04/05/2022 1:43 PM EDT [facility] Calcium 10.5(H) 8.8 - 10.2 mg/dL 04/05/2022 1:43 PM EDT [facility]PART[facility]IC[facility] BUN/Creatinine Ratio 18.0 8.0 - 23.0 03/11 1:43 PM EDT [facility] Total Protein 7.0 6.6 - 8.7 g/dL 04/05/2022 1:43 PM EDT [facility] Albumin 4.2 3.6 - 4.9 g/dL 04/05/2022 1:43 PM EDT [facility] DEPART[facility] OF LAB[facility]ATORY MEDICINE [facility] Total Bilirubin 0.6 <=1.2 mg/dL 04/05/2022 1:43 PM EDT [facility]PART[facility] OF [facility]ORY MEDICINE [facility] Alkaline Phosphatase 58 9 - 122 U/L 04/05/2022 1:43 PM T [facility] Alanine Aminotransferase (ALT) 19 10 - 35 U/L 04/05/2022 1:43 PM EDT [facility]ICINE [facility] Comment:Calcium dobesilate c an cause artificially low ALT results at therapeutic concentrations Aspartate Aminotransferase (AST) 26 10 - 35 U/L 04/05/2022 1:43 PM EDT [facility]ICINE [facility] Globulin 2.8 2.3 - 3.5 g/dL 04/05/2022 1:43 PM EDT [facility] A/G Ratio 1.5 1.0 - 2.2 04/05/2022 1:43 PM EDT [facility] DEPARTMENT OF LABORATORY MEDICINE - [facility] AST/ALT Ratio 1.4 See Comment 04/05/2022 1:43 PM EDT [facility] DEPARTMENT OF LABORATORY MEDICINE [facility] Comment: Adult with mild elevations of transaminases (< 5 times upper limit of normal): AST/ALT > 2 suggests alcoholic liver injury AST/ALT < 1 suggests non-alcoholic fatty liver disease (NAFLD) [place] (healthy): AST/ALT can be > 3 on day 0 AST/ALT < 2 by day 5 The thresholds provided focus on the most common etiologies of elevated serum transaminase levels and the associated alteration of AST:ALT ratios; they are not intended to exclude other feasible and clinically appropriate possibilities eGFR (Creatinine) >60 >=60 mL/min/1.7 3m2 04/05/2022 1:43 PM EDT [facility] DEPARTMENT OF LABORATORY MEDICINE [facility] Comment:Estimated glomerular filtration rate (eGFR) was [...] MD LAB BLOOD ORDERABLES Final Resul t [facility] DEPARTMENT OF LABORATORY MEDICINE [facility] [address] [place] [address] * Bone Density Result Scan (05/10/2017) us Historical Provider IMG SCAN REPORTS Final Resul t * (ABNORMAL) Lipid panel (03/18/2016 2:55 PM EDT) Cholesterol 229(H) 115 - 199 mg/dL 03/18/2016 8:11 PM EDT [facility] HDL 83 >=40 mg/dL 03/18/2016 8:11 PM EDT [facility] Triglycerides 71 30 - 150 mg/dL 03/18/2016 8:11 PM EDT [facility] Chol/HDL Ratio 2.8 <=5 03/18/2016 8:11 PM EDT [facility] Comment:Cholesterol/HDL rati o cannot be calculated. LDL Calculated 132 See Comment mg/dL 03/18/2016 8:11 PM EDT [facility] Comment: <100: Optimal 100-129: Near optimal/above optimal 130-159: Borderline high risk 160-189: High risk ??>=190: Very high risk Blood specimen (specimen) Venipuncture / Unknown 03/18/2016 2:55 PM EDT 03/18/2016 3:17 PM EDT Narrative [facility] - 03/18/2016 8:11 PM EDT $18.27 us Sangeeta Garces MD LAB BLOOD ORDERABLES Fin al Result Performing Organization Address [facility] Co de Phone Number [facility] [address] [place] [address] * MAMMOGRAPHY REPORT (04/25/2013 6:47 AM EDT) 04/25/2013 6:47 AM EDT us Provider Not In System IMG SCAN REPORTS Final Re sult from Last 3 Months or Most Recently Relevant to Health Maintenance Insurance MEDICARE [facility] MEDICARE [facility] MEDICARE [facility] MEDICARE MEDICARE BCBS Advance Directives * Full ACLS (Latest Code Status on File) Date Activated Date Inactivated Comments 12/15/2018 7:13 PM 12/16/2018 6:09 PM * Full Interventions Date Activated Date Inactivated Comments 03/18/2016 6:34 PM 03/19/2016 6:40 PM Care Teams Weapons Mechanic Relationship Specialty Start Date End Date Caitlyn Bowie MD [address] [address] PCP - General Internal Medicine 05/06/21
--- OUTSIDE RECORDS SUMMARY | 2024-09-09 01:41 | XMS_ITS | Encounter Summary ---
Author Organization [facility] Address [address] [place] [address] Care Team Providers Care Financial Data Analyst Name Role Phone Caitlyn Bowie MD Primary Care Provider [phone]- [phone] Encounter Details Date Type Department Care Team (Late st Contact Info) Description 03/15/2021 Scanned Document INTERFACE DEFAULT [address] [place] [address] System, Provider Not In Social History Tobacco [...] Description 09/30/2024 8:30 PM EDT Procedure visit [facility] [address] [place] [address] [address] [place] [phone] 10/31/2024 1:00 PM EDT Telemedicine Cancer Center at [facility] [address] [facility] [address] [place] [address] Ronald Mills MD [address] [facility] [address] [place] [phone] documented as of this encounter Procedures Procedure [...] Provider Not In System LAB BLOOD ORDERABLES Acrmina l Result documented in this encounter Visit Diagnoses Not on filedocumented in this encounter Additional Health Concerns Infection Onset Date Last Indicated Resolved Time COVID-19 03/05/2022 03/05/2022 03/15/2022 7:18 PM EDT Assessment Noted Time PHQ-9 Depression Total Score: 2 11/07/19 19 2:06 PM EDT documented as of this encounter Care Teams Financial Data Analyst Relationship Specialty Start Date End Date Caitlyn Bowie MD [address] [address] PCP - General Internal Medicine 05/06/21 documented as of this encounter
--- OUTSIDE RECORDS SUMMARY | 2024-09-09 01:41 | XMS_ITS | Encounter Summary ---
Author Organization [facility] Address [address] [place] [address] Care Team Providers Care Machine Candle Molder Name Role Phone Sharon Vides Primary Care Provider Unava ilable Brennan Burnett MD Primary Care Provider Unavailab Hayden Montes MD Unavailable [phone] Pallavi Flood NP Unavailable [phone]- [phone] Caitlyn Bowie MD Primary Care Provider Unava ilable Reason for Visit * Reason Onset Date Comments Provider Call Back 04/26/2019 Encounter Details Date Type Department Care Team Description 04/26/2019 Telephone Plastic Surgery [facility] [address] [facility] [address] [place] [address] Landen Aaron DO Provider Call [...] . 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 documented in this encounter Plan of Treatment Not on file documented as of this encounter Visit Diagnoses Not on filedocumented in this encounter Care Teams Machine Candle Molder Relationship Specialty Start Date End Date Sharon Vides PCP - General Internal Medicine 08/02/18 05/26/20 Brennan Burnett MD PCP - General Internal Medicine 05/27/20 12/07/21 Caitlyn Bowie MD [address] [place] [address] PCP - General Internal Medicine 12/08/21 Hayden Shah MD [address] [place] [address] Specialist Cardiovascular Disease 09/01/20 Pallavi Flood NP [address] [place] [address] Cardiology 09/01/20 documented as of this encounter
--- OUTSIDE RECORDS SUMMARY | 2024-09-09 01:41 | XMS_ITS | Encounter Summary ---
Author Organization [facility] Address [address] [place] [address] Care Team Providers Care Social Psychologist Name Role Phone Caitlyn Bowie MD Primary Care Provider [phone]- [phone] Encounter Details Date Type Department Care Team (Late st Contact Info) Description 03/08/2021 Scanned Document INTERFACE DEFAULT [address] [place] [address] System, Provider Not In Social History Tobacco [...] Description 09/30/2024 8:30 PM EDT Procedure visit [facility] [address] [place] [address] [address] [place] [phone] 10/31/2024 1:00 PM EDT Telemedicine [facility] Center at [facility] [address] [facility] [address] [place] [address] Ronald Mills MD 240 [facility] [address] [place] [phone] documented as of this encounter Procedures Procedure [...] as of this encounter Care Teams Social Psychologist Relationship Specialty Start Date End Date Caitlyn Bowie MD [address] [address] PCP - General Internal Medicine 05/06/21 documented as of this encounter
--- OUTSIDE RECORDS SUMMARY | 2024-09-09 01:41 | XMS_ITS | Encounter Summary ---
Author Organization [facility] Address [address] [place] [address] Care Team Providers Care Corporate Sales Manager Name Role Phone Victorino Martin MD Primary Care Provider Sharon Odonnell Primary Care Provider Brennan Castro MD Primary Care Provider Unavailab Hayden Montes MD Unavailable [phone] Pallavi Flood NP Unavailable [phone]- [phone] Caitlyn Bowie MD Primary Care Provider Johnathon shaver Encounter Details Date Type Department Care Team Description 02/06/2018 Telephone Pulmonology - [address] [place] [address] Henry Kelly MD Social [...] on filedocumented in this encounter Care Teams Corporate Sales Manager Relationship Specialty Start Date End Date Victorino Martin MD PCP - General Internal Medicine 12/21/17 08/01/18 Sharon Vides PCP - General Internal Medicine 08/02/18 05/26/20 Brennan Burnett MD PCP - General Internal Medicine 05/27/20 12/07/21 Caitlyn Bowie MD [address] [place] [address] PCP - General Internal Medicine 12/08/21 Hayden Shah MD [address] [place] [address] Specialist Cardiovascular Disease 09/01/20 Pallavi Flood NP [address] [place] [address] Cardiology 09/01/20 documented as of this encounter
--- OUTSIDE RECORDS SUMMARY | 2024-09-09 01:41 | XMS_ITS | Encounter Summary ---
Author Organization [facility] Address [address] [place] [address] Care Team Providers Care Quality Technician Fiberglass Name Role Phone Caitlyn Bowie MD Primary Care Provider [phone]- [phone] Encounter Details Date Type Department Care Team (Late st Contact Info) Description 06/07/2017 Scanned Document [facility] Health Information Management [address] [place] [address] External, Provider Social History Tobacco Use Types [...] Description 09/30/2024 8:30 PM EDT Procedure visit [facility] [address] [place] [address] [address] [place] [phone] 10/31/2024 1:00 PM EDT Telemedicine [facility] at [facility] [address] [facility] [address] [place], [place] [phone] Ronald Mills MD [address] [facility] [address] [place] [address] documented as of this encounter [...] as of this encounter Care Teams Quality Technician Fiberglass Relationship Specialty Start Date End Date Caitlyn Bowie MD 3400 [facility] 1 [place] [address] PCP - General Internal Medicine 05/06/21 Henry Kelly MD Pulmonary Department [address] [facility], [address] [place] [address] Physician Pulmonary Disease 09/06/17 06/22/20 documented as of this encounter
--- OUTSIDE RECORDS SUMMARY | 2024-09-09 01:41 | XMS_ITS | Encounter Summary ---
Author Organization [facility] Address [address] [place] [address] Care Team Providers Care Health Information Technologist Name Role Phone Caitlyn Bowie MD Primary Care Provider [phone]- [phone] Encounter Details Date Type Department Care Team (Late st Contact Info) Description 08/21/2017 Scanned Document [facility] Health Information Management [address] [place] [address] External, Provider Social History Tobacco Use Types [...] Description 09/30/2024 8:30 PM EDT Procedure visit [facility] [address] [place] [address] [address] [place] [address] 10/31/2024 1:00 PM EDT Telemedicine [facility] at [facility] [address] [facility] [address] [place], [place] [phone] Ronald Mills MD [address] [facility] [address] [place] [address] documented as of this encounter [...] as of this encounter Care Teams Health Information Technologist Relationship Specialty Start Date End Date Caitlyn Boiwe MD 3400 [facility] 1 [place] [address] PCP - General Internal Medicine 05/06/21 Henry Kelly MD Pulmonary Department [address] [facility] [place] [address] Physician Pulmonary Disease 09/06/17 06/22/20 documented as of this encounter
--- OUTSIDE RECORDS SUMMARY | 2024-09-09 01:41 | XMS_ITS | Encounter Summary ---
Author Organization [facility] Address [address] [place] [address] Care Team Providers Care Machine Learning Intern Name Role Phone Victorino Martin MD Primary Care Provider UnavailSharon Kimbrough Primary Care Provider Unava ilable Brennan Burnett MD Primary Care Provider Unavailab Hayden Montes MD Unavailable [phone] Pallavi Flood NP Unavailable [phone] Caitlyn Bowie MD Primary Care Provider Unava shenaable Reason for Visit * Reason Onset Date Comments lab test 04/04/2018 Encounter Details Date Type Department Care Team Description 04/04/2018 Telephone Pulmonology - [address] [place] [address] Henry Kelly MD lab test Social History Tobacco Use Types Packs/Day Years [...] Telephone Encounter - Maryse Iqbal M.A. - 04/04/2018 11:43 AM EDT Positive for mycobacterium avium complex. * Telephone Encounter - Val Luciano - 04/04/2018 10:53 AM EDT Calling in [employer] result to physician documented in this encounter Plan of Treatment Not on file documented as of this encounter Visit Diagnoses Not on filedocumented in this encounter Care Teams Machine Learning Intern Relationship Specialty Start Date End Date Victorino Martin MD PCP - General Internal Medicine 12/21/17 08/01/18 Sharon Vides PCP - General Internal Medicine 08/02/18 05/26/20 Brennan Burnett MD PCP - General Internal Medicine 05/27/20 12/07/21 Caitlyn Bowie MD [address] [place] [address] PCP - General Internal Medicine 12/08/21 Hayden Shah MD [address] [place] [address] Specialist Cardiovascular Disease 09/01/20 Pallavi Flood NP [address] [place] [address] Cardiology 09/01/20 documented as of this encounter
--- OUTSIDE RECORDS SUMMARY | 2024-09-09 01:41 | XMS_ITS | Clinical Summary ---
Author Organization 175 [facility] Address 175 [place] [address] Phone Care Team Providers Care Analog Ic Design Engineer Name Role Phone Brennan Burnett Primary Care Provider [phone] Allergies Active Allergy Reactions Criticality Noted Date [...] 20 mg as needed by her previous metal engineering process worker which she has taken sporadically. I have asked her to take this daily to see if this improves her symptoms and she has a follow-up appointment with Dr. Shah on September 16 which she will keep. We also had a long conversation regarding the fact that she is seeing 3 different metal engineering process worker for the same problems. We informed [...] continues to see Dr. Avalos or her metal engineering process worker at [facility]. She verbalized understanding of this and expressed [...] Team Description 08/26/2024 10:30 AM EST Telemedicine [facility] 175 [facility] [address] [place] [phone] Ayanna Jaffe MD Anxiety (Primary Dx); Memory change; Gait abnormality; White matter lesion of central nervous system 08/23/2024 1:20 PM EST Office Visit Gastroenterology - [address] [phone] Saima Amor, LEAD RUBY ON RAILS DEVELOPER Gastroesophageal reflux disease, unspecified whether esophagitis present (Primary Dx); Constipation, unspecified constipation type 08/19/2024 Telephone [facility] [address] [place] [phone] Daphne Alarcon, CONSTRUCTION OR LEAK GANG LABORER returning pt call 08/08/2024 Telephone [facility] [address] [phone] Daphne Alarcon, CONSTRUCTION OR LEAK GANG LABORER Memory Loss (Returned pt call from 08/07 about recent missed visit. Pt is not interested in in person f/u right now due to cold weather and other medical issues. She will f/u with medical team if she wants to address cognitive status in future) 07/04/2024 Telephone Gastroenterology - [address] [phone] Tim Gomes MD 07/01/2024 Telephone Gastroenterology - [address] [phone] Tim Gomes MD 06/20/2024 9:30 AM EST Evaluation [facility] [address] [place] [phone] Daphne Alarcon, CONSTRUCTION OR LEAK GANG LABORER Cognitive communication disorder (Primary Dx); White matter lesion of central nervous system; Unsp symptoms and signs w cognitive functions and awareness; Gait abnormality 06/20/2024 Plan of Care Documentation [facility] [address] [address] 06/15/2024 11:51 AM EST - 06/15/2024 4:05 PM EST Emergency [facility] Emergency [address] [place] [address] Jovana Cruz MD Pain (Primary [...] PROCEDURE: HISTORICAL TONSILLECTOMY OTHER SURGICAL HISTORY PROCEDURE: AR RMVL LUNG XCP TOT PNEUMONECTOMY SLEEVE LOBECTOMY; [...] pathology report UPPER GASTROINTESTINAL ENDOSCOPY 05/03/2015 PROCEDURE: AR UPPER GI ENDOSCOPY PERFORMED MITRAL CLIP PROCEDURE Medical History Medical History Date Comments Akathisia 04/15/2013 DX:Akathisia Anxiety 12/07/2016 DX:Anxiety Bronchiectasis ([facility]) 08/08/2017 DX:Bron chiectasis ([facility]) Cataract 08/26/2014 DX:Cataract Chronic obstructive pulmonar y disease ([facility]) 04/13/2017 DX:Chronic obstructive pulmo nary disease ([facility]) 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 DX:Complica cole migraine Congestive heart failure ([facility]) 04/04/2017 DX:Congestive heart failure (HCC) [...] Mx LLL resection, Chemo, RT, Cisplatin, Vinorelbine [id number] 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 DX:Antiphospholipid [...] Info) Description 09/09/2024 3:30 PM EST Treatment [facility] [address] [address] Daphne Alarcon, CONSTRUCTION OR LEAK GANG LABORER Health Maintenance Due Date Last Done Comments [...] Author ST [facility] General No Daphne Alarcon, CONSTRUCTION OR LEAK GANG LABORER Note: Pt will improve cognitive linguistic function to participate and communicate in iADLs mod I ST STGs General No Daphne Alarcon, CONSTRUCTION OR LEAK GANG LABORER Note: Pt will participate with development of [...] Final Resul t [facility] [address] [place] [address], * (ABNORMAL) Protime-INR (06/15/2024 1:26 PM EST) [...] Final Resul t [facility] [address] [place] [address], * (ABNORMAL) Comprehensive metabolic panel (06/15/2024 1:26 PM EST) [facility] Sodium 140 133 - 145 mmol/L LAB [...] Final Resul t [facility] [address] [place] [address], * Vascular US Duplex Lower Extremity Venous Left (06/15/2024 12:24 PM EST) Anatomical Region Laterality Modality Vascular, Abdomen Ultrasound 06/15/2024 12:2 0 PM EST Impressions 06/15/2024 12:20 PM EST Impression: No evidence of deep vein thrombosis in the left femoral-popliteal venous segment. [id number] -------- FINAL REPORT -------- Dictated By: Fawn Levin Dictated Date: 06/15/2024 12:20 ET Assigned Physician: Fawn Levin Reviewed and Electronically Signed By: Fawn Levin Signed Date: 06/15/2024 12:20 ET Workstation ID: [id number] Transcribed By: Self Edit Transcribed Date: 06/15/2024 [...] vein thrombosis in the leftfemoral-popliteal venous segment. [id number] -------- FINAL REPORT -------- Dictated By: Fawn Levin Dictated Date: 06/15/2024 12:20 ET Assigned Physician: Fawn Levin Reviewed and Electronically Signed By: Fawn Levin Signed Date: 06/15/2024 12:20 ET Workstation ID: [id number] Transcribed By: Self Edit Transcribed Date: 06/15/2024 12:20 ET us Henry Carrillo DO CV VASCULAR PROCEDURES Final R esult from Last 3 Months Insurance MEDICARE [facility] Advance Directives Documents on File Type Date Recorded Patient Rn Patient Care Expl anation Health Care Decision (hx) 10/18/2013 [...] (hx) 10/04/2013 AD LACEY DIRECTIVE Care Teams Analog Ic Design Engineer Relationship Specialty Start Date End Date Brennan Burnett MD [address] [place] [address] PCP - General 05/06/24
--- OUTSIDE RECORDS SUMMARY | 2024-09-09 01:41 | XMS_ITS | Encounter Summary ---
Author Organization [facility] Address [address] [place] [address] Care Team Providers Care Catering Chef Name Role Phone Caitlyn Bowie MD Primary Care Provider [phone]- [phone] Encounter Details Date Type Department Care Team (Late st Contact Info) Description 01/26/2018 Scanned Document [facility] Health Information Management [address] [place] [address] External, Provider Social History Tobacco Use Types [...] Description 09/30/2024 8:30 PM EDT Procedure visit [facility] [address] [place] [address] [address] [place] [phone] 10/31/2024 1:00 PM EDT Telemedicine [facility] 240 [facility] Building [address] [place], [place] [phone] Ronald Mills MD 240 [facility] [address] [place] [address] documented as of this encounter [...] documented as of this encounter Care Teams Catering Chef Relationship Specialty Start Date End Date Caitlyn Bowie MD 3400 [facility] 1 [place] [address] PCP - General Internal Medicine 05/06/21 Henry Kelly MD Pulmonary Department 175 [facility], [address] [place] [address] Physician Pulmonary Disease 09/06/17 06/22/20 documented as of this encounter
--- OUTSIDE RECORDS SUMMARY | 2024-09-09 01:41 | XMS_ITS | Encounter Summary ---
Author Organization [facility] Address [address] [place] [address] Care Team Providers Care Chain Maker Name Role Phone Caitlyn Bowie MD Primary Care Provider [phone]- [phone] Encounter Details Date Type Department Care Team (Late st Contact Info) Description 04/10/2021 Scanned Document INTERFACE DEFAULT [address] [place] [address] System, Provider Not In Social History Tobacco [...] Description 09/30/2024 8:30 PM EDT Procedure visit [facility] [address] [place] [address] [address] [place] [phone] 10/31/2024 1:00 PM EDT Telemedicine [facility] 240 [facility] [address] [place] [address] Ronald Mills MD 240 [facility] [address]1 [place] [phone] documented as of this encounter Procedures Procedure [...] documented as of this encounter Care Teams Chain Maker Relationship Specialty Start Date End Date Caitlyn Bowie MD [address] [address] PCP - General Internal Medicine 05/06/21 documented as of this encounter
--- OUTSIDE RECORDS SUMMARY | 2024-09-09 01:41 | XMS_ITS | Encounter Summary ---
Author Organization [facility] Address [address] [place] [address] Care Team Providers Care Processing Lead Name Role Phone Caitlyn Bowie MD Primary Care Provider [phone]- [phone] Encounter Details Date Type Department Care Team (Late st Contact Info) Description 04/02/2021 Scanned Document INTERFACE DEFAULT [address] [place] [address] System, Provider Not In Social History Tobacco [...] Description 09/30/2024 8:30 PM EDT Procedure visit [facility] [address] [place] [address] [address] [place] [phone] 10/31/2024 1:00 PM EDT Telemedicine [facility] 240 [facility] [address] [place] [address] Ronald Mills MD 240 [facility] [address] [place] [address] documented as of this encounter [...] documented as of this encounter Care Teams Processing Lead Relationship Specialty Start Date End Date Caitlyn Bowie MD [address] [address] PCP - General Internal Medicine 05/06/21 documented as of this encounter
--- OUTSIDE RECORDS SUMMARY | 2024-09-09 01:41 | XMS_ITS | Encounter Summary ---
Author Organization [facility] Address [address] [place] [address] Care Team Providers Care Tear Down Man Name Role Phone Caitlyn Bowie MD Primary Care Provider [phone]- [phone] Encounter Details Date Type Department Care Team (Late st Contact Info) Description 04/13/2021 Scanned Document INTERFACE DEFAULT [address] [place] [address] System, Provider Not In Social History Tobacco [...] Description 09/30/2024 8:30 PM EDT Procedure visit [facility] [address] [place] [address] [address] [place] [address] 10/31/2024 1:00 PM EDT Telemedicine [facility] at [facility] 240 [facility] [address] [place] [address] Ronald Mills MD 240 [facility] [address]1 [place] [address] documented as of this encounter Procedures Procedure [...] documented as of this encounter Care Teams Tear Down Man Relationship Specialty Start Date End Date Caitlyn Bowie MD [facility] [address] [address] PCP - General Internal Medicine 05/06/21 documented as of this encounter
--- OUTSIDE RECORDS SUMMARY | 2024-09-09 01:41 | XMS_ITS | Encounter Summary ---
Author Organization [facility] Address [address] [place] [address] Care Team Providers Care Hand Spinner Name Role Phone Caitlyn Bowie MD Primary Care Provider [phone]- [phone] Encounter Details Date Type Department Care Team (Late st Contact Info) Description 03/22/2021 Scanned Document INTERFACE DEFAULT [address] [place] [address] System, Provider Not In Social History Tobacco [...] Description 09/30/2024 8:30 PM EDT Procedure visit [facility] [address] [place] [address] [address] [place] [phone] 10/31/2024 1:00 PM EDT Telemedicine [facility] 240 [facility] [address] [place] [address] Ronald Mills MD 240 [facility] [address]1 [place] [phone] documented as of this encounter Visit Diagnoses Not on filedocumented in this encounter Additional Health Concerns Infection Onset Date Last Indicated Resolved Time COVID-19 03/05/2022 03/05/2022 03/15/2022 7:18 PM EDT Assessment Noted Time PHQ-9 Depression Total Score: 2 11/07/19 19 2:06 PM EDT documented as of this encounter Care Teams Hand Spinner Relationship Specialty Start Date End Date Caitlyn Bowie MD [address] [address] PCP - General Internal Medicine 05/06/21 documented as of this encounter
--- OUTSIDE RECORDS SUMMARY | 2024-09-09 01:41 | XMS_ITS | Encounter Summary ---
Author Organization [facility] Address [address] [place] [address] Care Team Providers Care Resource Development Manager Name Role Phone Victorino Martin MD Primary Care Provider Sharon Odonnell Primary Care Provider Brennan Castro MD Primary Care Provider UnavailHayden Fernandez MD Unavailable [phone] Pallavi Flood NP Unavailable [phone] Caitlyn Bowie MD Primary Care Provider Johnathon shaver Encounter Details Date Type Department Care Team Description 01/26/2018 [facility] Medical Records [address] [place] [address] Renetta Lugo Np Social History Tobacco Use [...] on filedocumented in this encounter Care Teams Resource Development Manager Relationship Specialty Start Date End Date Victorino Martin MD PCP - General Internal Medicine 12/21/17 08/01/18 Sharon Vides PCP - General Internal Medicine 08/02/18 05/26/20 Brennan Burnett MD PCP - General Internal Medicine 05/27/20 12/07/21 Caitlyn Bowie MD [address] [place] [address] PCP - General Internal Medicine 12/08/21 Hayden Shah MD [address] [place] [address] Specialist Cardiovascular Disease 09/01/20 Pallavi Flood NP [address] [place] [phone] Cardiology 09/01/20 documented as of this encounter
--- OUTSIDE RECORDS SUMMARY | 2024-09-09 01:41 | XMS_ITS | Encounter Summary ---
Author Organization [facility] Address [address] [place] [address] Care Team Providers Care Hospice Clinical Marketer Name Role Phone Caitlyn Bowie MD Primary Care Provider [phone]- [phone] Encounter Details Date Type Department Care Team (Late st Contact Info) Description 04/11/2021 Scanned Document [facility] Health Information Management [address] [place] [address] External, Provider Social History Tobacco Use Types [...] Description 09/30/2024 8:30 PM EDT Procedure visit [facility] [address] [place] [address] [address] [place] [phone] 10/31/2024 1:00 PM EDT Telemedicine [facility] 240 [facility] [address] [place] [address] Ronald Mills MD 240 [facility] [address] [place] [address] documented as of this encounter Visit Diagnoses Not on filedocumented in this encounter Additional Health Concerns Infection Onset Date Last Indicated Resolved Time COVID-19 03/05/2022 03/05/2022 03/15/2022 7:18 PM EDT Assessment Noted Time PHQ-9 Depression Total Score: 2 11/07/19 19 2:06 PM EDT documented as of this encounter Care Teams Hospice Clinical Marketer Relationship Specialty Start Date End Date Caitlyn Bowie MD [address] [address] PCP - General Internal Medicine 05/06/21 documented as of this encounter
--- OUTSIDE RECORDS SUMMARY | 2024-09-09 01:41 | XMS_ITS | Encounter Summary ---
Author Organization [facility] Address [address] [place] [address] Care Team Providers Care Demand Inspector Name Role Phone Sharon Vides Primary Care Provider Brennan Castro MD Primary Care Provider Unavailab Hayden Montes MD Unavailable [phone] Pallavi Flood NP Unavailable [phone] Caitlyn Bowie MD Primary Care Provider Johnathon shaver Encounter Details Date Type Department Care Team Description 05/07/2019 [facility] Medical Records [address] [place] [address] Abstract, Provider Social History Tobacco Use Types [...] on filedocumented in this encounter Care Teams Demand Inspector Relationship Specialty Start Date End Date Sharon Vides PCP - General Internal Medicine 08/02/18 05/26/20 Brennan Burnett MD PCP - General Internal Medicine 05/27/20 12/07/21 Caitlyn Bowie MD [address] [place] [address] PCP - General Internal Medicine 12/08/21 Hayden Shah MD [address] [place] [address] Specialist Cardiovascular Disease 09/01/20 Pallavi Flood NP [address] [place] [address] Cardiology 09/01/20 documented as of this encounter
--- OUTSIDE RECORDS SUMMARY | 2024-09-09 01:41 | XMS_ITS | Encounter Summary ---
Author Organization [facility] Address [address] [place] [address] Care Team Providers Care Belt Tender Name Role Phone Victorino Martin MD Primary Care Provider UnavailSharon Kimbrough Primary Care Provider Unava ilable Brennan Burnett MD Primary Care Provider Unavailab Hayden Montes MD Unavailable [phone] Pallavi Flood NP Unavailable [phone] Caitlyn Bowie MD Primary Care Provider Unava chhaya Reason for Visit * Reason Comments E-prescribe Rx Request Encounter Details Date Type Department Care Team Description 04/28/2018 Refill [address] [place] [address] Henry Kelly MD E-prescribe Rx [...] NO Patients current insurance carrier is: Payor: MEDICARE-JDF / [place] / Product Type: MEDICARE [id number] documented in this encounter Plan of Treatment Not on file documented as of this encounter Visit Diagnoses Not on filedocumented in this encounter Care Teams Belt Tender Relationship Specialty Start Date End Date Victorino Martin MD PCP - General Internal Medicine 12/21/17 08/01/18 Sharon Vides PCP - General Internal Medicine 08/02/18 05/26/20 Brennan Burnett MD PCP - General Internal Medicine 05/27/20 12/07/21 Caitlyn Bowie MD [address] [place] [address] PCP - General Internal Medicine 12/08/21 Hayden Shah MD [address] [place] [phone] Specialist Cardiovascular Disease 09/01/20 Pallavi Flood NP [address] [place] [address] Cardiology 09/01/20 documented as of this encounter
--- OUTSIDE RECORDS SUMMARY | 2024-09-09 01:42 | XMS_ITS | Encounter Summary ---
Author Organization [facility] Address [address] [place] [address] Care Team Providers Care Linen Controller Name Role Phone Sharon Vides Primary Care Provider Brennan Castro MD Primary Care Provider Unavailab Hayden Montes MD Unavailable [phone] Pallavi Flood NP Unavailable [phone] Caitlyn Bowie MD Primary Care Provider Johnathon shaver Encounter Details Date Type Department Care Team Description 09/01/2018 Release of Information Medical Records [address] [place] [phone] Abstract, Provider Social History Tobacco Use Types [...] on filedocumented in this encounter Care Teams Linen Controller Relationship Specialty Start Date End Date Sharon Vides PCP - General Internal Medicine 08/02/18 05/26/20 Brennan Burnett MD PCP - General Internal Medicine 05/27/20 12/07/21 Caitlyn Bowie MD [address] [place] [address] PCP - General Internal Medicine 12/08/21 Hayden Shah MD [address] [place] [address] Specialist Cardiovascular Disease 09/01/20 Pallavi Flood NP [address] [place] [address] Cardiology 09/01/20 documented as of this encounter
--- OUTSIDE RECORDS SUMMARY | 2024-09-09 01:42 | XMS_ITS | Encounter Summary ---
Author Organization [facility] Address [address] [place] [address] Care Team Providers Care Mailmaster Name Role Phone Caitlyn Bowie MD Primary Care Provider [phone]- [phone] Encounter Details Date Type Department Care Team (Late st Contact Info) Description 05/14/2015 Scanned Document [facility] Health Information Management [address] [place] [address] External, Provider Social History Tobacco Use Types [...] Description 09/30/2024 8:30 PM EDT Procedure visit [facility] [address] [place] [address] [address] [place] [address] 10/31/2024 1:00 PM EDT Telemedicine [facility] 240 [facility] Building [address] [place], [place] [address] Ronald Mills MD 240 [facility] A1 [place] [phone] documented as of this encounter Visit Diagnoses Not on filedocumented in this encounter Additional Health Concerns Infection Onset Date Last Indicated Resolved Time COVID-19 03/05/2022 03/05/2022 03/15/2022 7:18 PM EDT documented as of this encounter Care Teams Mailmaster Relationship Specialty Start Date End Date Caitlyn Bowie MD 3400 [facility] 1 [place] [address] PCP - General Internal Medicine 05/06/21 Henry Kelly MD Pulmonary Department 175 [facility] [address] [place] [address] Physician Pulmonary Disease 09/06/17 06/22/20 documented as of this encounter
--- OUTSIDE RECORDS SUMMARY | 2024-09-09 01:42 | XMS_ITS | Encounter Summary ---
Author Organization [facility] Address [address] [place] [address] Care Team Providers Care Defective Cigarette Slitter Name Role Phone Caitlyn Bowie MD Primary Care Provider [phone]- [phone] Encounter Details Date Type Department Care Team (Late st Contact Info) Description 02/11/2021 Scanned Document INTERFACE DEFAULT [address] [place] [address] System, Provider Not In Social History Tobacco [...] Description 09/30/2024 8:30 PM EDT Procedure visit [facility] [address] [place] [address] [address] [place] [address] 10/31/2024 1:00 PM EDT Telemedicine [facility] 240 [facility] [address] [place] [address] Ronald Mills MD 240 [facility] [address]1 [place] [address] documented as of this encounter [...] documented as of this encounter Care Teams Defective Cigarette Slitter Relationship Specialty Start Date End Date Caitlyn Bowie MD [address] [address] PCP - General Internal Medicine 05/06/21 documented as of this encounter
--- OUTSIDE RECORDS SUMMARY | 2024-09-09 01:42 | XMS_ITS | Encounter Summary ---
Author Organization [facility] and [facility] Address [address] [place] [address] Care Team Providers Care Drilling Contractor Name Role Phone Caitlyn Bowie MD Primary Care Provider +1- [phone] Encounter Details Date Type Department Care Team (Late st Contact Info) Description 01/07/2014 Documentation [facility] [address] [place] [address] Shilpi Ibarra [address] [place] [address] Social History Tobacco Use Types Packs/Day Years [...] the original note were not included. [facility] Progress Note This is a 68 y.o. female who was provided services by [facility]. Service Provided By:: Shilpi Ibarra Patient Status: new Length of Appointment: 60 minutes Pre-Treatment Total: 3.6 Post-Treatment Total: 1.2 documented in this encounter Plan of Treatment Upcoming Encounters Date Type Department Care Team (Late st Contact Info) Description 09/30/2024 8:30 PM EDT Procedure visit [facility] [address] [place] [address] [address] [place] [address] 10/31/2024 1:00 PM EDT Telemedicine [facility] at [facility] [address] [facility] [address] [place], [place] [address] Ronald Mills MD 240 [facility] [address] [place] [address] documented as of this encounter Visit Diagnoses Not on filedocumented in this encounter Additional Health Concerns Infection Onset Date Last Indicated Resolved Time COVID-19 03/05/2022 03/05/2022 03/15/2022 7:18 PM EDT documented as of this encounter Care Teams Drilling Contractor Relationship Specialty Start Date End Date Caitlyn Bowie MD 3400 [facility] 1 [place] [address] PCP - General Internal Medicine 05/06/21 Henry Kelly MD Pulmonary Department 175 [facility], [address] [place] [address] Physician Pulmonary Disease 09/06/17 06/22/20 documented as of this encounter
--- OUTSIDE RECORDS SUMMARY | 2024-09-09 01:42 | XMS_ITS | Encounter Summary ---
Author Organization [facility] and [facility] Address [address] [place] [address] Care Team Providers Care Food Writer Name Role Phone Caitlyn Bowie MD Primary Care Provider +1- [phone] Encounter Details Date Type Department Care Team (Late st Contact Info) Description 11/07/2014 Scanned Document [facility] Health Information Management [address] [place] [address] External, Provider Social History Tobacco Use Types [...] Description 09/30/2024 8:30 PM EDT Procedure visit [facility] [address] [place] [address] [address] [place] [address] 10/31/2024 1:00 PM EDT Telemedicine [facility] 240 [facility] [address] [place], [place] [address] Ronald Mills MD 240 [facility] A[address] [place] [address] documented as of this encounter Visit Diagnoses Not on filedocumented in this encounter Additional Health Concerns Infection Onset Date Last Indicated Resolved Time COVID-19 03/05/2022 03/05/2022 03/15/2022 7:18 PM EDT documented as of this encounter Care Teams Food Writer Relationship Specialty Start Date End Date Caitlyn Bowie MD 3400 [facility] [address] [place] [address] PCP - General Internal Medicine 05/06/21 Henry Kelly MD Pulmonary Department 175 [facility], [address] [place] [address] Physician Pulmonary Disease 09/06/17 06/22/20 documented as of this encounter
--- OUTSIDE RECORDS SUMMARY | 2024-09-09 01:42 | XMS_ITS | Encounter Summary ---
Author Organization [facility] Address [address] [place] [address] Care Team Providers Care School Operations Manager Name Role Phone Caitlyn Bowie MD Primary Care Provider +1- [phone] Encounter Details Date Type Department Care Team (Late st Contact Info) Description 02/02/2018 Scanned Document [facility] Health Information Management [address] [place] [address] External, Provider Social History Tobacco Use Types [...] Description 09/30/2024 8:30 PM EDT Procedure visit [facility] [address] [place] [address] [address] [place] [address] 10/31/2024 1:00 PM EDT Telemedicine [facility] at [facility] [address] [facility] Building [address] [place], [place] [phone] Ronald Mills MD 240 [facility] [address]1 [place] [address] documented as of this encounter Visit Diagnoses Not on filedocumented in this encounter Additional Health Concerns Infection Onset Date Last Indicated Resolved Time COVID-19 03/05/2022 03/05/2022 03/15/2022 7:18 PM EDT documented as of this encounter Care Teams School Operations Manager Relationship Specialty Start Date End Date Caitlyn Bowie MD 3400 [facility] 1 [place] [address] PCP - General Internal Medicine 05/06/21 Henry Kelly MD Pulmonary Department 175 [facility], [address] [place] [address] Physician Pulmonary Disease 09/06/17 06/22/20 documented as of this encounter
--- OUTSIDE RECORDS SUMMARY | 2024-09-09 01:42 | XMS_ITS | Encounter Summary ---
Author Organization [facility] Address [address] [place] [address] Care Team Providers Care Materials Intern Name Role Phone Caitlyn Bowie MD Primary Care Provider +1- [phone] Encounter Details Date Type Department Care Team (Late st Contact Info) Description 10/16/2013 Scanned Document [facility] [address] [facility], 2nd floor [facility], [address] [place], [place] [address] Suzy Kong MD [address] [place] [address] Social History Tobacco Use Types Packs/Day [...] Description 09/30/2024 8:30 PM EDT Procedure visit [facility] [address] [place] [address] [address] [place] [address] 10/31/2024 1:00 PM EDT Telemedicine Cancer Center at [address] [place], [place] [address] Ronald Mills MD 240 [facility] [address] [place] [address] documented as of this encounter Visit Diagnoses Not on filedocumented in this encounter Additional Health Concerns Infection Onset Date Last Indicated Resolved Time COVID-19 03/05/2022 03/05/2022 03/15/2022 7:18 PM EDT documented as of this encounter Care Teams Materials Intern Relationship Specialty Start Date End Date Caitlyn Bowie MD 3400 [facility] 1 [place] [address] PCP - General Internal Medicine 05/06/21 Henry Kelly MD Pulmonary Department [address] [place] [address], [address] [place] [address] Physician Pulmonary Disease 09/06/17 06/22/20 documented as of this encounter
--- OUTSIDE RECORDS SUMMARY | 2024-09-09 01:42 | XMS_ITS | Encounter Summary ---
Author Organization [facility] and [facility] Address [address] [place] [address] Care Team Providers Care Crystal Grinder Name Role Phone Caitlyn Bowie MD Primary Care Provider +1- [phone] Encounter Details Date Type Department Care Team (Late st Contact Info) Description 04/28/2015 Scanned Document [facility] Health Information Management [address] [place] [address] External, Provider Social History Tobacco Use Types [...] Description 09/30/2024 8:30 PM EDT Procedure visit [facility] [address] [place] [address] [address] [place] [address] 10/31/2024 1:00 PM EDT Telemedicine [facility] 240 [facility] Building [address] [place], [place] [address] Ronald Mills MD 240 [facility] [address]1 [place] [address] documented as of this encounter Visit Diagnoses Not on filedocumented in this encounter Additional Health Concerns Infection Onset Date Last Indicated Resolved Time COVID-19 03/05/2022 03/05/2022 03/15/2022 7:18 PM EDT documented as of this encounter Care Teams Crystal Grinder Relationship Specialty Start Date End Date Caitlyn Bowie MD 3400 [facility] [address] 1 [place] [address] PCP - General Internal Medicine 05/06/21 Henry Kelly MD Pulmonary Department 175 [facility], [address] [place] [address] Physician Pulmonary Disease 09/06/17 06/22/20 documented as of this encounter
--- OUTSIDE RECORDS SUMMARY | 2024-09-09 01:42 | XMS_ITS | Encounter Summary ---
Author Organization [facility] and [facility] Address [address] [place] [address] Care Team Providers Care Gps Field Data Collector Name Role Phone Caitlyn Bowie MD Primary Care Provider +1- [phone] Encounter Details Date Type Department Care Team (Late st Contact Info) Description 01/13/2021 Scanned Document [facility] at [address] [address] External, Provider Social History Tobacco Use Types [...] Description 09/30/2024 8:30 PM EDT Procedure visit [facility] [address] [place] [address] [place] [address] 10/31/2024 1:00 PM EDT Telemedicine Cancer Center at [address] [place], [place] [address] Ronald Mills MD [address] [address] documented as of this encounter [...] documented as of this encounter Care Teams Gps Field Data Collector Relationship Specialty Start Date End Date Caitlyn Bowie MD [address] [address] PCP - General Internal Medicine 05/06/21 documented as of this encounter
--- OUTSIDE RECORDS SUMMARY | 2024-09-09 01:42 | XMS_ITS | Encounter Summary ---
Author Organization [facility] Address [address] [place] [address] Care Team Providers Care Head Porter Baggage Name Role Phone Brennan Burnett MD Primary Care Provider Unavailab Hayden Montes MD Unavailable [phone] Pallavi Flood NP Unavailable [phone]- [phone] Caitlyn Bowie MD Primary Care Provider Unava ilable Encounter Details Date Type Department Care Team Description 09/28/2020 SCAN Medical Records [address] [place] [address] Christo Hogan Social History Tobacco Use Types Packs/Day Years [...] Associated Diagnosis Comments OUTSIDE VASCULAR STUDY Routine 09/28/2020 documented in this encounter Results * OUTSIDE VASCULAR STUDY (09/28/2020) Provider Abstract CARDIOLOGY documented in this encounter Visit Diagnoses Not on filedocumented in this encounter Care Teams Head Porter Baggage Relationship Specialty Start Date End Date Brennan Burnett MD PCP - General Internal Medicine 05/27/20 12/07/21 Caitlyn Bowie MD [address] [place] [address] PCP - General Internal Medicine 12/08/21 Hayden Shah MD [address] [place] [address] Specialist Cardiovascular Disease 09/01/20 Pallavi Flood NP [address] [place] [address] Cardiology 09/01/20 documented as of this encounter
--- OUTSIDE RECORDS SUMMARY | 2024-09-09 01:42 | XMS_ITS | Encounter Summary ---
Author Organization [facility] and [facility] Address [address] [place] [address] Care Team Providers Care Heart Specialist Name Role Phone Caitlyn Bowie MD Primary Care Provider [phone]- [phone] Encounter Details Date Type Department Care Team (Late st Contact Info) Description 04/28/2015 Scanned Document [facility] Health Information Management [address] [place] [address] External, Provider Social History Tobacco Use Types [...] Description 09/30/2024 8:30 PM EDT Procedure visit [facility] [address] [place] [address] [address] [place] [address] 10/31/2024 1:00 PM EDT Telemedicine [facility] at [facility] [address] [facility] [address] [place], [place] [address] Ronald Mills MD 240 [facility] A1 [place] [phone] documented as of this encounter Procedures Procedure Name Priority Date/Time Associated Diagnosis Comments LAB SCAN Routine 04/28/2015 documented in this encounter Results * Lab Scan (04/28/2015) Blood specimen (specimen) us Provider External LAB BLOOD ORDERABLES Edited Re sult - Final [facility] [place], [place], [facility] documented in this encounter Visit Diagnoses Not on filedocumented in this encounter Additional Health Concerns Infection Onset Date Last Indicated Resolved Time COVID-19 03/05/2022 03/05/2022 03/15/2022 7:18 PM EDT documented as of this encounter Care Teams Heart Specialist Relationship Specialty Start Date End Date Caitlyn Bowie MD 3400 [facility] 1 [place] [address] PCP - General Internal Medicine 05/06/21 Henry Kelly MD Pulmonary Department 175 [facility], [address] [place] [address] Physician Pulmonary Disease 09/06/17 06/22/20 documented as of this encounter
--- OUTSIDE RECORDS SUMMARY | 2024-09-09 01:42 | XMS_ITS | Encounter Summary ---
Author Organization [facility] Address [address] [place] [address] Care Team Providers Care User Experience Designer Name Role Phone Sharon Vides Primary Care Provider Brennan Castro MD Primary Care Provider Unavailab Hayden Montes MD Unavailable [phone] Pallavi Flood NP Unavailable [phone]- [phone] Caitlyn Bowie MD Primary Care Provider Johnathon shaver Encounter Details Date Type Department Care Team Description 10/01/2018 Orders Only Pulmonology - [address] [place] [address] Henry Kelly MD Mixed simple [...] bronchitis documented in this encounter Care Teams User Experience Designer Relationship Specialty Start Date End Date Sharon Vides PCP - General Internal Medicine 08/02/18 05/26/20 Brennan Burnett MD PCP - General Internal Medicine 05/27/20 12/07/21 Caitlyn Bowie MD [address] [place] [address] PCP - General Internal Medicine 12/08/21 Hayden Shah MD [address] [place] [address] Specialist Cardiovascular Disease 09/01/20 Pallavi Flood NP [address] [place] [address] Cardiology 09/01/20 documented as of this encounter
--- OUTSIDE RECORDS SUMMARY | 2024-09-09 01:42 | XMS_ITS | Encounter Summary ---
Author Organization [facility] and [facility] Address [address] [place] [address] Care Team Providers Care Concrete Batcher Name Role Phone Caitlyn Bowie MD Primary Care Provider [phone]- [phone] Encounter Details Date Type Department Care Team ([facility] st Contact Info) Description 08/26/2014 Documentation [facility] [address] [place] [address] Shilpi Ibarra [address] [place] [address] Social History Tobacco Use Types Packs/Day Years [...] from the original note were not included. [facility] Progress Note This is a 69 y.o. female who was provided services by [facility]. Service Provided By:: Shilpi Ibarra Patient Status: return Length of Appointment: 60 minutes documented in this encounter Plan of Treatment Upcoming Encounters Date Type Department Care Team (Late st Contact Info) Description 09/30/2024 8:30 PM EDT Procedure visit [facility] [address] [facility] [address] [place] [address] 10/31/2024 1:00 PM EDT Telemedicine [facility] at [facility] 240 [facility] [address] [place] [address] Ronald Mills MD 240 [facility] [address] [place] [address] documented as of this encounter Visit Diagnoses Not on filedocumented in this encounter Additional Health Concerns Infection Onset Date Last Indicated Resolved Time COVID-19 03/05/2022 03/05/2022 03/15/2022 7:18 PM EDT documented as of this encounter Care Teams Concrete Batcher Relationship Specialty Start Date End Date Caitlyn Bowie MD 3400 [facility] 1 [place] [address] PCP - General Internal Medicine 05/06/21 Henry Kelly MD Pulmonary Department 175 [facility], [address] [place] [address] Physician Pulmonary Disease 09/06/17 06/22/20 documented as of this encounter
--- OUTSIDE RECORDS SUMMARY | 2024-09-09 01:42 | XMS_ITS | Data Portability ---
Author Organization [place] [facility], [facility] Address [address] [place] [address] Care Team Providers Care Fancy Sewer Name Role Phone EVELIN RAMSAY Primary Care Provider [phone] SHANTI YBARRA OTHER [phone] Assessment Encounter Date Assessment Date Assessment [...] 911 activated Plan/Discussion: EMS handoff given to [facility] In order to obtain further information and compare any laboratory results/values, I have accessed old patient records. This information was pertinent in my medical decision making today. [email or web address] Not available 03/14/2021 13:20:46 07/18/2021 07/18/2021 Overview/History [...] as of yet. -She is educated to roll picker stool softeners to help promote BM [...] I have accessed patient records on the [employer] and old patient records. This [...] after care of this patient according to [facility]'s infection prevention protocols. Time On Scene [...] noting blood on her pillow approximately 3 [place] when she woke this morning. She has [...] after care of this patient according to [facility]'s infection prevention protocols. [email or web address] Not available 12/29/2021 14:43:37 Plan of Treatment Reminders Order Date Submit Date Provider Last Modified By Organization Details Last Modified Time Details Appointments None recorded. Lab None recorded. Referral None recorded. Procedures None recorded. Surgeries None recorded. Imaging None recorded. Medication Orders docusate sodium 100 mg capsule 2021 022 [email or web address] [id number], [address] [facility], [place], [address], 19:28:14 Patient TargetsNo targets recorded. Patient Instructions Encounter Date Encounter Id Patient Instructions Last Modified By Organization Details Last Modified Time 03/14/2021 [id number] Thank you for yo ur visit with [facility] today. You were seen today for [...] in your condition between 8am-10pm, please call [facility] at [phone] to help navigate your care. [email or web address] Not available 03/14/2021 12:46:32 10/18/2021 [id number] It was great to see you today! Thank you for letting [facility] assist you in your medical needs today. [...] follow up with your PCP [facility]. Please present to the nearest [...] INR 1.2 0.9-1. 2 Not Available [place] [facility] [address] [facility] [place], [address], 02/11/2021 16:58:14 02/12/20 21 02/11/2021 , sylvia vance lower extre mity No observ ation record ed. [address] (Imaging) [address] [place], [address], 02/12/2021 08:19:41 Result Notes None recorded. Problems Name Problem SNOMED Code Status Onset Date Resolution Date Notes Provider Name and Address Organization Details Recorded Time Chronic obstructive pulmonary disease 24940037 Active 2018 ARCELIA PATELALON WINSTON [address], [facility], [address], [place] [facility] 9 12:59:21 Problem Notes None recorded. Procedures Surgical History Date Name Laterality Status Provider Name and Address Organization Details Recorded Time Total Hysterectomy completed Cristine Sidhu, ASSESSMENT SERVICES MANAGER [address], [place], [address], [place] [facility] 10/18/2021 19:39:45 lobectomy of lung completed Cristine frazier, ASSESSMENT SERVICES MANAGER [address], [place], [address], [place] [facility] 10/18/2021 19:40:05 Remove tonsils and adenoids completed Cristine Sidhu, ALON [address], [place], [address], [place] [facility] 10/18/2021 19:40:22 Imaging Results Imaging Date Name Status LastModified by Organiz ation Details LastModified Time 02/11/2021 US, duplex, venous, lower extremity completed [address] (Imaging) [address] [place], [address], 02/12/2021 08:19:41 Procedure Notes None recorded. Medical Equipment None Reported. Allergies Allergen ID Allergen Name Allergen Category Reaction Reaction Severity Criticality Documentation Date Start Date Code Code System Note Provider Name and Address Organization Details Recorded Time 35407 Product containin g penicilli n (product) medicatio n Not available Not available Not available 06/15/2019 27600 8001 SNOMED ARCELIA PATELTISH ASSESSMENT SERVICES MANAGER [address], [place], [address], [place] [facility] 9 12:56:48 92268 Substance with sulfonami de structure and antibacte rial mechanism of action (substanc e) medicatio n Not available Not available Not available 06/15/2019 14914 8003 SNOMED ARCELIA FAJARDO , ASSESSMENT SERVICES MANAGER [address], [place], [address], [place] [facility] 9 12:56:54 50651 Voltaren medicatio n Not available Not available Not available 06/15/201929554 6 RxNorm ARCELIA FAJARDO , ASSESSMENT SERVICES MANAGER [address], [facility] [place], [address], [place] [facility] 9 12:57:01 80346 Iodinated contrast media (substanc e) medicatio n Not available Not available Not available 06/15/2019 80657 2004 SNOMED ARCELIA FAJARDO , ASSESSMENT SERVICES MANAGER [address], [place], [address], [place] [facility] 9 12:57:07 54759 vancomyci n medicatio n Not available Not available Not available 06/15/2019 97349 RxNorm ARCELIA FAJARDO , ASSESSMENT SERVICES MANAGER [address], [facility] [place], [address], [place] [facility] 9 12:57:14 78806 gentamici n medicatio n Not available Not available Not available 06/15/2019 73918 50 RxNorm ARCELIA FAJARDO , ASSESSMENT SERVICES MANAGER [address], [place], [address], [place] [facility] 9 12:57:20 55469 Biaxin medicatio n Not available Not available Not available 06/15/201945380 9 RxNorm ARCELIA FAJARDO , ASSESSMENT SERVICES MANAGER [address], [place], [address], [place] [facility] 9 12:57:27 85701 Avelox medicatio n Not available Not available Not available 06/15/2019 49957 6 RxNorm ARCELIA FAJARDO , ASSESSMENT SERVICES MANAGER [address], [place], [address], [place] [facility] 9 12:57:34 68869 erythromy jaylon medicatio n Not available Not available Not available 06/15/2019 4053 RxNorm ARCELIA FAJARDO , ASSESSMENT SERVICES MANAGER [address], [place], [address], [place] [facility] 9 12:57:41 83839 Zithromax medicatio n Not available Not available Not available 06/15/2019 33164 4 RxNorm ARCELIA FAJARDO , ASSESSMENT SERVICES MANAGER [address], [facility] [place], [address], [place] [facility] 9 12:57:51 12539 Levaquin medicatio n Not available Not available Not available 06/15/2019 27965 2 RxNorm ARCELIA FAJARDO , ASSESSMENT SERVICES MANAGER [address], [place], [address], [place] [facility] 9 12:58:02 74354 Cipro medicatio n Not available Not available Not available 06/15/2019 53018 3 RxNorm ARCELIA FAJARDO , ASSESSMENT SERVICES MANAGER [address], [place], [address], [place] [facility] 9 12:58:08 90251 morphine medicatio n Not available Not available Not available 06/15/2019 7052 RxNorm ARCELIA FAJARDO , ASSESSMENT SERVICES MANAGER [address], [place], [address], [place] [facility] 9 12:58:20 39690 procaine hydrochlo ride medicatio n Not available Not available Not available 06/15/2019 05200 8 RxNorm ARCELIA FAJARDO , ASSESSMENT SERVICES MANAGER [address], [place], [address], [place] [facility] 9 12:58:42 24228 barium sulfate medicatio n Not available Not available Not available 06/15/2019 1331 RxNorm ARCELIA FAJARDO , ASSESSMENT SERVICES MANAGER [address], [facility] [place], [address], [place] [facility] 9 12:58:54 23877 Gastrogra fin medicatio n Not available Not available Not available 06/15/2019 95801 5 RxNorm ARCELIA FAJARDO , ASSESSMENT SERVICES MANAGER [address], [place], [address], [place] [facility] 9 12:59:01 27363 Flagyl medicatio n Not available Not available Not available 06/15/201980287 6 RxNorm ARCELIA FAJARDO , ALON [address], [place], [address], [place] [facility] 9 12:59:06 99641 shrimp allergeni c extract food Not available Not available Not available 06/15/2019 26202 2 RxNorm ARCELIA FAJARDO , ASSESSMENT SERVICES MANAGER [address], [place], [address], [place] [facility] [...] ne propionat e 50 mcg/actua tion nasal spray,droi pension SPRAY 2 PRAYS INTO EACH NOSTRIL [...] completed Not Available Not Available Not Available [facility] 100,000 unit/gram topical powder APPLY ONE [...] [degF] 114 mm[Hg] 62 mm[Hg] Not Available [facility] 1 12:53:01 Date Recorded Respiratory rate Oxygen saturation Oxygen saturation in Arterial blood by Pulse oximetry Heart rate Body temperature Systolic blood pressure Diastolic blood pressure Provider Name and Address Organization Details Last Updated DateTime 2 18 /min 98 % 98 % 84 /min 98.9 [degF] 112 mm[Hg] 58 mm[Hg] Not Available [facility] 2 11:16:01 Date Recorded Heart rate Oxygen saturation Oxygen saturation in Arterial blood by Pulse oximetry Respiratory rate Body temperature Systolic blood pressure Diastolic blood pressure Systolic blood pressure Diastolic blood pressure Provider Name and Address Organization Details Last Updated DateTime 2 80 /min 96 % 96 % 18 /min 98.9 [degF] 142 mm[Hg] 66 mm[Hg] 128 mm[Hg] 60 mm[Hg] Not Available [facility] 2 20:16:17 Date Recorded Oxygen saturation Oxygen saturation in Arterial blood by Pulse oximetry Heart rate Respiratory rate Body temperature Systolic blood pressure Diastolic blood pressure Provider Name and Address Organization Details Last Updated DateTime 2 96 % 96 % 77 /min 18 /min 98.6 [degF] 122 mm[Hg] 60 mm[Hg] Not Available [facility] 2 13:41:00 Social History Question Answer Notes LastModified by Organizat ion Details LastModified Time Tobacco Smoking Status Never Smoker ARCELIA FAJARDO NP [address] [facility] [place], [address], [place] [facility] 06/15/2019 13:05:25 Do You Have An Advance [...] History Condition Response Hypothyroidism Y COPD Y Diabetes N Cancer Y Stroke N High Cholesterol Y Pulmonary Embolism Y Hypertension N Kidney Disease N Gynecological HistoryNo gynecological history recorded. Obstetrics History GPAL:G 0 P 0 0 0 0 Past Encounters Encounter ID Performer Location Encounter Start Date Encounter Closed Date Diagnosis/Indication Diagnosis SNOMED-CT Code Diagnosis ICD10 Code Diagnosis Note [id number] ARCELIA FAJARDO NP [facility] [address] [facility] [place] [address] 06/15/2019 12:54:37 06/17/2019 13:06:33 Excoriation of skin 898962019 T14.8XXA [id number] JANIS GILBERT NP [facility] [address] [place] [address] 11/13/2019 16:03:00 11/18/2019 14:53:37 Pain in lower limb 52887540 M79.661 [id number] ARCELIA FAJARDO NP [facility] [address] [facility] [facility] [place] [place] [address] 03/14/2020 20:02:43 03/18/2020 21:30:46 Traumatic hematoma 712730027 T14.8XXA Long-term current use of anticoagulant 026066116 Z79.01 Pain in left foot 357199 3751 84300 M79.672 [id number] EMELIA TOMPKINS [facility] [address] [place] [address] 03/20/2020 12:50:59 03/23/2020 17:54:28 Contusion of lower leg 69486053 S80.10XA Swelling of lower leg 44 0218689 R22.42 [id number] [facility] [address] [facility] [place] [address] 09/29/2020 11:41:21 09/29/2020 12:38:57 Pain of intercostal space 742323523 R07.82 Exposure t o communicable disease 307250030 Z20.822 [id number] Waleska Matos, ASSESSMENT SERVICES MANAGER [facility] [address] [facility] [place] [address] 02/11/2021 16:34:32 02/12/2021 11:08:44 Hematoma of lower leg 445138218 S80.11XA [id number] JAMES RADHA ASSESSMENT SERVICES MANAGER [facility] [address] [facility] [place] [address] 03/14/2021 12:45:30 03/19/2021 14:09:43 Abdominal pain 11181937 R10.9 [id number] EMELIA Alfonso [facility] [address] [facility] [place] [address] 07/18/2021 10:56:56 07/22/2021 23:43:22 Constipation 48932878 K59.00 Left lower quadrant pain 152561184 R10.32 [id number] Cristine Sidhu NP [facility] - HOME [address] [facility] [place] [address] 10/18/2021 19:17:00 11/10/2021 16:33:03 Left sided abdominal pain 140263418 R10.9 Hematoma of lower leg 44 5192436 S80.10XA Long-term current use of anticoagulant 581771836 Z79.01 [id number] Cristine Sidhu NP [facility] [address] [facility] [place] [address] 12/29/2021 13:36:24 12/30/2021 10:20:27 Blood coagulation disorder 06399760 D68.61 D68.2 [id number] Olivia Goldberg ASSESSMENT SERVICES MANAGER [facility] [address] [facility] [place] [address] 01/18/2023 14:00:39 01/18/2023 15:01:49 Health Concerns Section Related Observation LastModified by Organization Detai ls LastModified Time None Recorded Concern Status LastModified by Organization Details LastModified Time None Recorded Advance Directives Directive Y: Payers Encounter Date Sequence Insurance Name Policy Number Policy Pettit Covered Member ID Pettit Member ID Guarantor Name 03/14/2021 1 [place]: [employer] SERVICES Jovana Malik [id number] Jovana Malik 03/14/2021 2 [place] [id number] Jovana Steinino [id number] Jovana Steinino 07/18/2021 1 [place]ARE [place]: [facility] SERVICES Jovana Malik [id number] Jovana Steinino 07/18/2021 2 [place] [id number] Jovana Steinino [id number] Jovana Steinino 10/18/2021 1 [place]: [facility] SERVICES Jovana Steinino [id number] Jovana Helena 10/18/2021 2 [place] [id number] Jovana Steinino [id number] Jovana Steinino 12/29/2021 1 [place]: [facility] SERVICES Jovana Malik [id number] Jovana Helena 12/29/2021 2 [facility]: ([place] [id number] Jovana Steinino [id number] Jovana Steinino 01/18/2023 1 [place]: [facility] SERVICES Jovana Malik [id number] Jovana [place] 01/18/2023 2 [place] [employer] [place] [id number] Jovana Steinino [id number] Jovana Malik Notes Date Note Type Note Provider Name and Address Organization Details Recorded Time 1 text/html This is a 75-year-old female, [facility], who calls with concerns for severe abdominal [...] intake. JAMES GARCIA NP [address], [place], [address], [place] [facility] 03/14/2021 13:21:32 2 text/html [...] asscociated sx's. EMELIA Ni [address], [place], [address], [place] [facility] 07/18/2021 12:04:00 2 text/html [...] evaluated. Cristine Sidhu NP [address], [place], [address], [place] [facility] 11/09/2021 02:11:05 2 text/html [...] supernatural. Cristine Sidhu NP [address], [place], [address], [place] [facility] 12/29/2021 14:43:53 3 text/html pt did not answer, visit canceled Olivia Goldberg NP [address], [place], [address], [place] [facility] 01/18/2023 19:34:36 OBGyn Episode No OBEpisode recorded.
--- OUTSIDE RECORDS SUMMARY | 2024-09-09 01:42 | XMS_ITS | Encounter Summary ---
Author Organization [facility] Address [address] [place] [address] Care Team Providers Care Rouge Sifter And Miller Name Role Phone Caitlyn Bowie MD Primary Care Provider [phone] Encounter Details Date Type Department Care Team (Late st Contact Info) Description 05/01/2015 Scanned Document [facility] Health Information Management [address] [place] [address] External, Provider Social History Tobacco Use Types [...] Description 09/30/2024 8:30 PM EDT Procedure visit [facility] [address] [place] [address] [address] [place] [address] 10/31/2024 1:00 PM EDT Telemedicine [facility] at [facility] [address] [facility] [address] [place], [place] [address] Ronald Mills MD [address] [facility] [address] [place] [address] documented as of this encounter Procedures Procedure [...] documented as of this encounter Care Teams Rouge Sifter And Miller Relationship Specialty Start Date End Date Caitlyn Bowie MD [address] [facility] [address] [place] [address] PCP - General Internal Medicine 05/06/21 Henry Kelly MD Pulmonary Department [address] [facility] [place] [address] Physician Pulmonary Disease 09/06/17 06/22/20 documented as of this encounter
--- OUTSIDE RECORDS SUMMARY | 2024-09-09 01:42 | XMS_ITS | Encounter Summary ---
Author Organization [facility] Address [address] [place] [address] Care Team Providers Care Senior Technical Recruiter Name Role Phone Caitlyn Bowie MD Primary Care Provider [phone]- [phone] Encounter Details Date Type Department Care Team (Late st Contact Info) Description 02/02/2021 Scanned Document INTERFACE DEFAULT [address] [place] [address] System, Provider Not In Social History Tobacco [...] Description 09/30/2024 8:30 PM EDT Procedure visit [facility] [address] [place] [address] [address] [place] [address] 10/31/2024 1:00 PM EDT Telemedicine [facility] at [facility] [address] [facility] [address] [place] [address] Ronald Mills MD [address] [facility] [address] [place] [address] documented as of this encounter Procedures Procedure [...] as of this encounter Care Teams Senior Technical Recruiter Relationship Specialty Start Date End Date Caitlyn Bowie MD [address] [address] PCP - General Internal Medicine 05/06/21 documented as of this encounter
--- OUTSIDE RECORDS SUMMARY | 2024-09-09 01:42 | XMS_ITS | Encounter Summary ---
Author Organization [facility] Address [address] [place] [address] Care Team Providers Care Glost Placer Name Role Phone Sharon Vides Primary Care Provider Brennan Castro MD Primary Care Provider Unavailab Hayden Montes MD Unavailable [phone] Pallavi Flood NP Unavailable [phone] Caitlyn Bowie MD Primary Care Provider Johnathon shaver Encounter Details Date Type Department Care Team Description 01/09/2019 Hospital Medical Records [address] [place] [address] Norma Mendoza MD [address] [place] [address] Social History Tobacco Use Types Packs/Day Years [...] on filedocumented in this encounter Care Teams Glost Placer Relationship Specialty Start Date End Date Sharon Vides PCP - General Internal Medicine 08/02/18 05/26/20 Brennan Burnett MD PCP - General Internal Medicine 05/27/20 12/07/21 Caitlyn Bowie MD [address] [place] [address] PCP - General Internal Medicine 12/08/21 Hayden Shah MD [address] [place] [address] Specialist Cardiovascular Disease 09/01/20 Pallavi Flood NP [address] [place] [id number] Cardiology 09/01/20 documented as of this encounter
--- OUTSIDE RECORDS SUMMARY | 2024-09-09 01:42 | XMS_ITS | Encounter Summary ---
Author Organization [facility] Address [address] [place] [address] Care Team Providers Care Patient Portal Representative Name Role Phone Caitlyn Bowie MD Primary Care Provider [phone]- [phone] Encounter Details Date Type Department Care Team (Late st Contact Info) Description 09/18/2020 Scanned Document INTERFACE DEFAULT [address] [place] [address] System, Provider Not In Social History Tobacco [...] Description 09/30/2024 8:30 PM EDT Procedure visit [facility] [address] [place] [address] [address] [place] [address] 10/31/2024 1:00 PM EDT Telemedicine [facility] [address] [facility] [address] [place] [address] Ronald iMlls MD [address] [facility] [address] [place] [address] documented as of this encounter Visit Diagnoses Not on filedocumented in this encounter Additional Health Concerns Infection Onset Date Last Indicated Resolved Time COVID-19 03/05/2022 03/05/2022 03/15/2022 7:18 PM EDT Assessment Noted Time PHQ-9 Depression Total Score: 2 11/07/19 19 2:06 PM EDT documented as of this encounter Care Teams Patient Portal Representative Relationship Specialty Start Date End Date Caitlyn Bowie MD [address] [address] PCP - General Internal Medicine 05/06/21 documented as of this encounter
--- OUTSIDE RECORDS SUMMARY | 2024-09-09 01:42 | XMS_ITS | Encounter Summary ---
Author Organization [facility] Address [address] [place] [address] Care Team Providers Care Tobacco Baler Name Role Phone Brennan Burnett MD Primary Care Provider Unavailab Hayden Montes MD Unavailable [phone] Pallavi Flood NP Unavailable [phone] Caitlyn Bowie MD Primary Care Provider Unava ilable Encounter Details Date Type Department Care Team Description 09/28/2020 [facility] Medical Records [address] [place] [address] Abstract, Provider Social History Tobacco Use Types [...] on filedocumented in this encounter Care Teams Tobacco Baler Relationship Specialty Start Date End Date Brennan Burnett MD PCP - General Internal Medicine 05/27/20 12/07/21 Caitlyn Bowie MD [address] [place] [address] PCP - General Internal Medicine 12/08/21 Hayden Shah MD [address] [place] [address] Specialist Cardiovascular Disease 09/01/20 Pallavi Flood NP [address] [place] [address] Cardiology 09/01/20 documented as of this encounter
--- OUTSIDE RECORDS SUMMARY | 2024-09-09 01:42 | XMS_ITS | Encounter Summary ---
Author Organization [facility] Address [address] [place] [address] Care Team Providers Care Program Technician Name Role Phone Sharon Vides Primary Care Provider Brennan Castro MD Primary Care Provider Unavailab Hayden Montes MD Unavailable [phone] Pallavi Flood NP Unavailable [phone] Caitlyn Bowie MD Primary Care Provider Johnathon shaver Encounter Details Date Type Department Care Team Description 09/05/2018 Night Triage Doc Medical Records [address] [place] [address] Abstract, Provider Social History Tobacco Use Types [...] on filedocumented in this encounter Care Teams Program Technician Relationship Specialty Start Date End Date Sharon Vides PCP - General Internal Medicine 08/02/18 05/26/20 Brennan Burnett MD PCP - General Internal Medicine 05/27/20 12/07/21 Caitlyn Bowie MD [address] [place] [address] PCP - General Internal Medicine 12/08/21 Hayden Shah MD [address] [place] [address] Specialist Cardiovascular Disease 09/01/20 Pallavi Flood NP [address] [place] [address] Cardiology 09/01/20 documented as of this encounter
--- OUTSIDE RECORDS SUMMARY | 2024-09-09 01:42 | XMS_ITS | Encounter Summary ---
Author Organization [facility] and [facility] Address [address] [place] [address] Care Team Providers Care Self Sealing Fuel Tank Repairer Name Role Phone Caitlyn Bowie MD Primary Care Provider +1- [phone] Reason for Visit * Reason Comments Other Encounter Details Date Type Department Care Team (Late st Contact Info) Description 01/12/2021 Telephone [facility] at [address] - [address] [id number] Ronald Mills MD [address] [place] [address] Other Social History Tobacco Use Types [...] AM EDT Lab orders were faxed to [facility] @ [phone]. Patient notified by phone. * Telephone Encounter - Nasima Wang - 01/12/2021 8:46 AM EDT Pt called looking to speak with Kirstin RE: lab orders sent to lab [facility] lab Looking to have labs sent there A.S.A.P at some point today She is scheduled with Dr. Mills on January 28 documented in this encounter Plan of Treatment Upcoming Encounters Date Type Department Care Team (Late st Contact Info) Description 09/30/2024 8:30 PM EDT Procedure visit [facility] [address] [place] [address] [address] [place] [address] 10/31/2024 1:00 PM EDT Telemedicine Cancer [facility] at [facility] 240 [facility] [address] [place], [place] [address] Ronald Mills MD 240 [facility] Max [address]1 [place] [address] documented as of this encounter Visit Diagnoses Not on filedocumented in this encounter Additional Health Concerns Infection Onset Date Last Indicated Resolved Time COVID-19 03/05/2022 03/05/2022 03/15/2022 7:18 PM EDT Assessment Noted Time PHQ-9 Depression Total Score: 2 11/07/19 19 2:06 PM EDT documented as of this encounter Care Teams Self Sealing Fuel Tank Repairer Relationship Specialty Start Date End Date Caitlyn Bowie MD 3400 [facility] 1 [place] [address] PCP - General Internal Medicine 05/06/21 documented as of this encounter
--- OUTSIDE RECORDS SUMMARY | 2024-09-09 01:42 | XMS_ITS | Encounter Summary ---
Author Organization [facility] Address [address] [place] [address] Care Team Providers Care Lens Molding Equipment Operator Name Role Phone Sharon Vides Primary Care Provider Brennan Castro MD Primary Care Provider Unavailab Hayden Montes MD Unavailable [phone] Pallavi Flood NP Unavailable +1- [phone] Caitlyn Bowie MD Primary Care Provider Johnathon shaver Encounter Details Date Type Department Care Team Description 11/20/2018 Pt. Non Urgent Medic al Question Pulmonology - [place] 175 [facility] [address] [place] [address] Henry Kelly MD Social History [...] you ever get the pft result from [facility] (Dr. Menjivar)? If so did you request a new Bipap from [employer]? I hope you and your family had a good vacation. Fond regards, Jovana Malik documented in this encounter Plan of Treatment Not on file documented as of this encounter Visit Diagnoses Not on filedocumented in this encounter Care Teams Lens Molding Equipment Operator Relationship Specialty Start Date End Date Sharon Vides PCP - General Internal Medicine 08/02/18 05/26/20 Brennan Burnett MD PCP - General Internal Medicine 05/27/20 12/07/21 Caitlyn Bowie MD [address] [place] [address] PCP - General Internal Medicine 12/08/21 Hayden Shah MD [address] [place] [address] Specialist Cardiovascular Disease 09/01/20 Pallavi Flood NP [address] [place] [address] Cardiology 09/01/20 documented as of this encounter
--- OUTSIDE RECORDS SUMMARY | 2024-09-09 01:42 | XMS_ITS | Encounter Summary ---
Author Organization [facility] and [facility] Address [address] [place] [address] Care Team Providers Care Switchboard Manager Name Role Phone Caitlyn Bowie MD Primary Care Provider +1- [phone] Encounter Details Date Type Department Care Team (Late st Contact Info) Description 12/21/2020 Scanned Document INTERFACE DEFAULT [address] [place] [address] System, Provider Not In Social History Tobacco [...] Description 09/30/2024 8:30 PM EDT Procedure visit [facility] [address] [place] [address] [address] [place] [address] 10/31/2024 1:00 PM EDT Telemedicine Cancer Center at [facility] 240 [facility] Building [address] [place] [address] Ronald Mills MD 240 [facility] A1 [place] [address] documented as of this encounter Visit Diagnoses Not on filedocumented in this encounter Additional Health Concerns Infection Onset Date Last Indicated Resolved Time COVID-19 03/05/2022 03/05/2022 03/15/2022 7:18 PM EDT Assessment Noted Time PHQ-9 Depression Total Score: 2 11/07/19 19 2:06 PM EDT documented as of this encounter Care Teams Switchboard Manager Relationship Specialty Start Date End Date Caitlyn Bowie MD [address] [address] PCP - General Internal Medicine 05/06/21 documented as of this encounter
--- OUTSIDE RECORDS SUMMARY | 2024-09-09 01:42 | XMS_ITS | Encounter Summary ---
Author Organization [facility] and [facility] Address [address] [place] [address] Care Team Providers Care Tester Vibrator Equipment Name Role Phone Caitlyn Bowie MD Primary Care Provider +1- [phone] Encounter Details Date Type Department Care Team (Late st Contact Info) Description 01/13/2021 Scanned Document Cancer Center at [address] [address] Ronald Mills MD [address] [place] [address] Social History Tobacco Use Types Packs/Day [...] Description 09/30/2024 8:30 PM EDT Procedure visit [facility] [address] [place] [address] [place] [address] 10/31/2024 1:00 PM EDT Telemedicine Cancer Center at [address] [place], [place] [address] Ronald Mills MD 240 [facility] A1 [place] [address] documented as of [...] documented as of this encounter Care Teams Tester Vibrator Equipment Relationship Specialty Start Date End Date Caitlyn Bowie MD [address] [address] PCP - General Internal Medicine 05/06/21 documented as of this encounter
--- OUTSIDE RECORDS SUMMARY | 2024-09-09 01:42 | XMS_ITS | Encounter Summary ---
Author Organization [facility] and [facility] Address [address] [place] [address] Care Team Providers Care Dust Collector Operator Name Role Phone Caitlyn Bowie MD Primary Care Provider +1- [phone] Encounter Details Date Type Department Care Team (Late st Contact Info) Description 08/23/2017 Scanned Document [facility] Health Information Management [address] [place] [address] External, Provider Social History Tobacco Use Types [...] Description 09/30/2024 8:30 PM EDT Procedure visit [facility] [address] [place] [address] [address] [place] [address] 10/31/2024 1:00 PM EDT Telemedicine Cancer Center at [facility] 240 [facility] Building [address] [place], [place] [address] Ronald Mills MD 240 [facility] A1 [place] [address] documented as of this [...] of this encounter Care Teams Dust Collector Operator Relationship Specialty Start Date End Date Caitlyn Bowie MD 3400 [facility] 1 [place] [address] PCP - General Internal Medicine 05/06/21 Henry Kelly MD Pulmonary Department 175 [facility], [address] [place] [address] Physician Pulmonary Disease 09/06/17 06/22/20 documented as of this encounter
--- OUTSIDE RECORDS SUMMARY | 2024-09-09 01:42 | XMS_ITS | Encounter Summary ---
Author Organization [facility] and [facility] Address [address] [place] [address] Care Team Providers Care Telegraph Installer Name Role Phone Caitlyn Bowie MD Primary Care Provider +1- [phone] Encounter Details Date Type Department Care Team (Late Contact Info) Description 02/02/2021 Scanned Document [facility] Health Information Management [address] [place] [address] External, Provider Social History Tobacco Use Types [...] Description 09/30/2024 8:30 PM EDT Procedure visit [facility] [address] [place] [address] [address] [place] [address] 10/31/2024 1:00 PM EDT Telemedicine Cancer Center at [facility] 240 [facility] [address] [place] [address] Ronald Mills MD 240 [facility] A1 [place] [address] documented as of this encounter Visit Diagnoses Not on filedocumented in this encounter Additional Health Concerns Infection Onset Date Last Indicated Resolved Time COVID-19 03/05/2022 03/05/2022 03/15/2022 7:18 PM EDT Assessment Noted Time PHQ-9 Depression Total Score: 2 11/07/19 19 2:06 PM EDT documented as of this encounter Care Teams Telegraph Installer Relationship Specialty Start Date End Date Caitlyn Bowie MD [address] [address] PCP - General Internal Medicine 05/06/21 documented as of this encounter
--- OUTSIDE RECORDS SUMMARY | 2024-09-09 01:42 | XMS_ITS | Encounter Summary ---
Author Organization [facility] and [facility] Address [address] [place] [address] Care Team Providers Care Resource Room Teacher Name Role Phone Caitlyn Bowie MD Primary Care Provider +1- [phone] Encounter Details Date Type Department Care Team (Late st Contact Info) Description 07/31/2015 Scanned Document [facility] Health Information Management [address] [place] [address] External, Provider Social History Tobacco Use Types [...] Description 09/30/2024 8:30 PM EDT Procedure visit [facility] [address] [place] [address] [address] [place] [address] 10/31/2024 1:00 PM EDT Telemedicine Cancer Center at [facility] 240 [facility] Building [address] [place], [place] [address] Ronald Mills MD 240 [facility] A1 [place] [address] documented as of this encounter Procedures Procedure Name Priority Date/Time Associated Diagnosis Comments NUC MED/PET RESULT SCAN Routine 07/31/2015 documented in this encounter Results * Nuc Med/PET Result Scan (07/31/2015) us Provider External IMG SCAN REPORTS Edited Result - Final [facility] documented in this encounter Visit Diagnoses Not on filedocumented in this encounter Additional Health Concerns Infection Onset Date Last Indicated Resolved Time COVID-19 03/05/2022 03/05/2022 03/15/2022 7:18 PM EDT documented as of this encounter Care Teams Resource Room Teacher Relationship Specialty Start Date End Date Caitlyn Bowie MD 3400 [facility] 1 [place] [address] PCP - General Internal Medicine 05/06/21 Henry Kelly MD Pulmonary Department 175 [facility], [address] [place] [address] Physician Pulmonary Disease 09/06/17 06/22/20 documented as of this encounter
--- OUTSIDE RECORDS SUMMARY | 2024-09-09 01:42 | XMS_ITS | Encounter Summary ---
Author Organization [facility] Address [address] [place] [address] Care Team Providers Care Director Of Public Works Name Role Phone Sharon Vides Primary Care Provider Brennan Castro MD Primary Care Provider Unavailab Hayden Montes MD Unavailable [phone] Pallavi Flood NP Unavailable [phone]- [phone] Caitlyn Bowie MD Primary Care Provider Johnathon shaver Encounter Details Date Type Department Care Team Description 10/03/2018 Pt. Non Urgent Medic al Question Pulmonology - [place] 175 [facility] [address] [place] [address] Henry Kelly MD Social History [...] Dr Menjivar's office had scheduled it in May earlier in the day of my appointment [...] filedocumented in this encounter Care Teams Director Of Public Works Relationship Specialty Start Date End Date Sharon Vides PCP - General Internal Medicine 08/02/18 05/26/20 Brennan Burnett MD PCP - General Internal Medicine 05/27/20 12/07/21 Caitlyn Bowie MD [address] [place] [address] PCP - General Internal Medicine 12/08/21 Hayden Shah MD [address] [place] [address] Specialist Cardiovascular Disease 09/01/20 Pallavi Flood NP [address] [place] [address] Cardiology 09/01/20 documented as of this encounter
--- OUTSIDE RECORDS SUMMARY | 2024-09-09 01:42 | XMS_ITS | Encounter Summary ---
Author Organization [facility] and [facility] Address [address] [place] [address] Care Team Providers Care Barback Name Role Phone Caitlyn Bowie MD Primary Care Provider +1- [phone] Encounter Details Date Type Department Care Team (Late st Contact Info) Description 01/27/2021 Scanned Document Cancer Center at [address] [address] External, Provider Social History Tobacco Use Types [...] Description 09/30/2024 8:30 PM EDT Procedure visit [facility] [address] [place] [address] [place] [address] 10/31/2024 1:00 PM EDT Telemedicine Cancer Center at [address] [place], [place] [address] Ronald Mills MD [address] [address] documented as of this encounter [...] documented as of this encounter Care Teams Barback Relationship Specialty Start Date End Date Caitlyn Bowie MD [address] [address] PCP - General Internal Medicine 05/06/21 documented as of this encounter
--- OUTSIDE RECORDS SUMMARY | 2024-09-09 01:42 | XMS_ITS | Encounter Summary ---
Author Organization [facility] and [facility] Address [address] [place] [address] Care Team Providers Care Forest Practices Field Coordinator Name Role Phone Caitlyn Bowie MD Primary Care Provider +1- [phone] Encounter Details Date Type Department Care Team (Late st Contact Info) Description 02/07/2021 Scanned Document INTERFACE DEFAULT [address] [place] [address] System, Provider Not In Social History Tobacco [...] Description 09/30/2024 8:30 PM EDT Procedure visit [facility] [address] [place] [address] [address] [place] [address] 10/31/2024 1:00 PM EDT Telemedicine Cancer [facility] at [facility] 240 [facility] [address] [place] [address] Ronald Mills MD 240 [facility] A1 [place] [address] documented as of this encounter Procedures Procedure [...] as of this encounter Care Teams Forest Practices Field Coordinator Relationship Specialty Start Date End Date Caitlyn Bowie MD [facility] [address] [address] PCP - General Internal Medicine 05/06/21 documented as of this encounter
--- OUTSIDE RECORDS SUMMARY | 2024-09-09 01:42 | XMS_ITS | Encounter Summary ---
Author Organization [facility] and [facility] Address [address] [place] [address] Care Team Providers Care Stem Sizer Name Role Phone Caitlyn Bowie MD Primary Care Provider +1- [phone] Encounter Details Date Type Department Care Team (Late st Contact Info) Description 10/07/2013 Scanned Document Thoracic Oncology Program at [address] [address] Suzy Kong MD [address] [place] [address] Social History Tobacco Use Types Packs/Day [...] Description 09/30/2024 8:30 PM EDT Procedure visit [facility] [address] [place] [address] [place] [address] 10/31/2024 1:00 PM EDT Telemedicine Cancer Center at [address] [place] [address] Ronald Mills MD 240 [facility] Max [address]1 [place] [address] documented as of this encounter Visit Diagnoses Not on filedocumented in this encounter Additional Health Concerns Infection Onset Date Last Indicated Resolved Time COVID-19 03/05/2022 03/05/2022 03/15/2022 7:18 PM EDT documented as of this encounter Care Teams Stem Sizer Relationship Specialty Start Date End Date Caitlyn Bowie MD 3400 [facility] 1 [place] [address] PCP - General Internal Medicine 05/06/21 Henry Kelly MD Pulmonary Department 175 [facility], [address] [place] [address] Physician Pulmonary Disease 09/06/17 06/22/20 documented as of this encounter
--- OUTSIDE RECORDS SUMMARY | 2024-09-09 01:42 | XMS_ITS | Encounter Summary ---
Author Organization [facility] and [facility] Address [address] [place] [address] Care Team Providers Care Fish Net Maker Name Role Phone Caitlyn Bowie MD Primary Care Provider +1- [phone] Encounter Details Date Type Department Care Team (Late st Contact Info) Description 11/29/2017 Scanned Document [facility] Health Information Management [address] [place] [address] External, Provider Social History Tobacco Use Types [...] Description 09/30/2024 8:30 PM EDT Procedure visit [facility] [address] [place] [address] [address] [place] [address] 10/31/2024 1:00 PM EDT Telemedicine Cancer Center at [facility] 240 [facility] Building [address] [place], [place] [address] Ronald Mills MD 240 [facility] A1 [place] [address] documented as of this encounter [...] as of this encounter Care Teams Fish Net Maker Relationship Specialty Start Date End Date Caitlyn Bowie MD 3400 [facility] 1 [place] [address] PCP - General Internal Medicine 05/06/21 Henry Kelly MD Pulmonary Department 175 [facility], [address] [place] [address] Physician Pulmonary Disease 09/06/17 06/22/20 documented as of this encounter
--- OUTSIDE RECORDS SUMMARY | 2024-09-09 01:42 | XMS_ITS | Encounter Summary ---
Author Organization [facility] Address [address] [place] [address] Care Team Providers Care Infrastructure Project Manager Name Role Phone Caitlyn Bowie MD Primary Care Provider +1- [phone] Encounter Details Date Type Department Care Team (Late st Contact Info) Description 11/09/2014 Scanned Document [facility] Health Information Management [address] [place] [address] External, Provider Social History Tobacco Use Types [...] Description 09/30/2024 8:30 PM EDT Procedure visit [facility] [address] [place] [address] [address] [place] [address] 10/31/2024 1:00 PM EDT Telemedicine Cancer Center at [facility] 240 [facility] Building [address] [place], [place] [address] Ronald Mills MD 240 [facility] A1 [place] [address] documented as of this encounter Visit Diagnoses Not on filedocumented in this encounter Additional Health Concerns Infection Onset Date Last Indicated Resolved Time COVID-19 03/05/2022 03/05/2022 03/15/2022 7:18 PM EDT documented as of this encounter Care Teams Infrastructure Project Manager Relationship Specialty Start Date End Date Caitlyn Bowie MD 3400 [facility] [place] Max 1 [place] [address] PCP - General Internal Medicine 05/06/21 Henry Kelly MD Pulmonary Department 175 [facility], [address] [place] [address] Physician Pulmonary Disease 09/06/17 06/22/20 documented as of this encounter
--- OUTSIDE RECORDS SUMMARY | 2024-09-09 01:42 | XMS_ITS | Encounter Summary ---
Author Organization [facility] Address [address] [place] [address] Care Team Providers Care Knitting Machine Operator Automatic Name Role Phone Brennan Burnett MD Primary Care Provider Unavailab Hayden Montes MD Unavailable [phone] Pallavi Flood NP Unavailable +[phone]- [phone] Caitlyn Bowie MD Primary Care Provider Unava ilable Encounter Details Date Type Department Care Team Description 09/25/2020 Plant Attendant Or Assistant Operator Report Medical Records [address] [place] [address] Henry Kelly MD Social History Tobacco Use [...] on filedocumented in this encounter Care Teams Knitting Machine Operator Automatic Relationship Specialty Start Date End Date Brennan Burnett MD PCP - General Internal Medicine 05/27/20 12/07/21 C[address]lyn [address] [place] [address] PCP - General Internal Medicine 12/08/21 Hayden Shah MD [address] [place] [address] Specialist Cardiovascular Disease 09/01/20 Pallavi Flood NP [address] [place] [address] Cardiology 09/01/20 documented as of this encounter
--- OUTSIDE RECORDS SUMMARY | 2024-09-09 01:42 | XMS_ITS | Encounter Summary ---
Author Organization [facility] Address [address] [place] [address] Care Team Providers Care [place] Outfit Supervisor Name Role Phone Caitlyn Bowie MD Primary Care Provider +1- [phone] Encounter Details Date Type Department Care Team (Late st Contact Info) Description 02/08/2021 Scanned Document INTERFACE DEFAULT [address] [place] [address] System, Provider Not In Social History Tobacco [...] Description 09/30/2024 8:30 PM EDT Procedure visit [facility] [address] [place] [address] [address] [place] [address] 10/31/2024 1:00 PM EDT Telemedicine Cancer Center at [facility] 240 [facility] [address] [place] [address] Ronald Mills MD 240 [facility] A1 [place] [address] documented as of this encounter Visit Diagnoses Not on filedocumented in this encounter Additional Health Concerns Infection Onset Date Last Indicated Resolved Time COVID-19 03/05/2022 03/05/2022 03/15/2022 7:18 PM EDT Assessment Noted Time PHQ-9 Depression Total Score: 2 11/07/19 19 2:06 PM EDT documented as of this encounter Care Teams [place] Outfit Supervisor Relationship Specialty Start Date End Date Caitlyn Bowie MD [address] [address] PCP - General Internal Medicine 05/06/21 documented as of this encounter
--- OUTSIDE RECORDS SUMMARY | 2024-09-09 01:42 | XMS_ITS | Encounter Summary ---
Author Organization [facility] and [facility] Address [address] [place] [address] Care Team Providers Care Patent Prosecution Attorney Name Role Phone Caitlyn Bowie MD Primary Care Provider +1- [phone] Encounter Details Date Type Department Care Team (Late Contact Info) Description 02/03/2021 Scanned Document [facility] Health Information Management [address] [place] [address] External, Provider Social History Tobacco Use Types [...] Description 09/30/2024 8:30 PM EDT Procedure visit [facility] [address] [place] [address] [address] [place] [address] 10/31/2024 1:00 PM EDT Telemedicine Cancer Center at [facility] 240 [facility] [address] [place] [address] Ronald Mills MD 240 [facility] [address]1 [place] [address] documented as of this encounter [...] documented as of this encounter Care Teams Patent Prosecution Attorney Relationship Specialty Start Date End Date Caitlyn Bowie MD [address] [address] PCP - General Internal Medicine 05/06/21 documented as of this encounter
--- OUTSIDE RECORDS SUMMARY | 2024-09-09 01:42 | XMS_ITS | Encounter Summary ---
Author Organization [facility] Address [address] [place] [address] Care Team Providers Care Pastoral Counselor Name Role Phone Caitlyn Bowie MD Primary Care Provider +1- [phone] Encounter Details Date Type Department Care Team (Late st Contact Info) Description 02/03/2021 Scanned Document INTERFACE DEFAULT [address] [place] [address] System, Provider Not In Social History Tobacco [...] Description 09/30/2024 8:30 PM EDT Procedure visit [facility] [address] [place] [address] [address] [place] [address] 10/31/2024 1:00 PM EDT Tele[facility]icine [facility] at [facility] 240 [facility] [address] [place] [address] Ronald Mills MD 240 [facility] [address]1 [place] [address] documented as of this encounter Procedures Procedure [...] documented as of this encounter Care Teams Pastoral Counselor Relationship Specialty Start Date End Date Caitlyn Bowie MD [address] [address] PCP - General Internal Medicine 05/06/21 documented as of this encounter
--- OUTSIDE RECORDS SUMMARY | 2024-09-09 01:42 | XMS_ITS | Encounter Summary ---
Author Organization [facility] Address [address] [place] [address] Care Team Providers Care Assistant Store Leader Name Role Phone Caitlyn Bowie MD Primary Care Provider +1- [phone] Encounter Details Date Type Department Care Team (Late st Contact Info) Description 01/30/2018 Scanned Document [facility] Health Information Management [address] [place] [address] External, Provider Social History Tobacco Use Types [...] Description 09/30/2024 8:30 PM EDT Procedure visit [facility] [address] [place] [address] [address] [place] [address] 10/31/2024 1:00 PM EDT Telemedicine [facility] at [facility] 240 [facility] Building [address] [place], [place] [phone] Ronald Mills MD 240 [facility] A1 [place] [address] documented as of this encounter [...] as of this encounter Care Teams Assistant Store Leader Relationship Specialty Start Date End Date Caitlyn Bowie MD 3400 [facility] 1 [place] [address] PCP - General Internal Medicine 05/06/21 Henry Kelly MD Pulmonary Department 175 [facility], [address] [place] [address] Physician Pulmonary Disease 09/06/17 06/22/20 documented as of this encounter
--- OUTSIDE RECORDS SUMMARY | 2024-09-09 01:42 | XMS_ITS | Encounter Summary ---
Author Organization [facility] Address [address] [place] [address] Care Team Providers Care Boathouse Keeper Name Role Phone Caitlyn Bowie MD Primary Care Provider +1- [phone] Encounter Details Date Type Department Care Team (Late st Contact Info) Description 06/25/2015 Scanned Document [facility] Health Information Management [address] [place] [address] External, Provider Social History Tobacco Use Types [...] Description 09/30/2024 8:30 PM EDT Procedure visit [facility] [address] [place] [address] [address] [place] [address] 10/31/2024 1:00 PM EDT Telemedicine [facility] 240 [facility] Building [address] [place], [place] [address] Ronald Mills MD 240 [facility] A1 [place] [address] documented as of this encounter Visit Diagnoses Not on filedocumented in this encounter Additional Health Concerns Infection Onset Date Last Indicated Resolved Time COVID-19 03/05/2022 03/05/2022 03/15/2022 7:18 PM EDT documented as of this encounter Care Teams Boathouse Keeper Relationship Specialty Start Date End Date Caitlyn Bowie MD 3400 [facility] [address] 1 [place] [address] PCP - General Internal Medicine 05/06/21 Henry Kelly MD Pulmonary Department 175 [facility], [address] [place] [address] Physician Pulmonary Disease 09/06/17 06/22/20 documented as of this encounter
--- OUTSIDE RECORDS SUMMARY | 2024-09-09 01:42 | XMS_ITS | Encounter Summary ---
Author Organization [facility] Address [address] [place] [address] Care Team Providers Care Purchasing Assistant Name Role Phone Caitlyn Bowie MD Primary Care Provider +1- [phone] Encounter Details Date Type Department Care Team (Late st Contact Info) Description 09/01/2017 Scanned Document [facility] Health Information Management [address] [place] [address] External, Provider Social History Tobacco Use Types [...] Description 09/30/2024 8:30 PM EDT Procedure visit [facility] [address] [place] [address] [address] [place] [address] 10/31/2024 1:00 PM EDT Telemedicine [facility] at [facility] 240 [facility] Building [address] [place], [place] [address] Ronald Mills MD 240 [facility] A1 [place] [address] documented as of this encounter [...] documented as of this encounter Care Teams Purchasing Assistant Relationship Specialty Start Date End Date Caitlyn Bowie MD 3400 [facility] 1 [place] [address] PCP - General Internal Medicine 05/06/21 Henry Kelly MD Pulmonary Department 175 [facility], [address] [place] [address] Physician Pulmonary Disease 09/06/17 06/22/20 documented as of this encounter
--- OUTSIDE RECORDS SUMMARY | 2024-09-09 01:42 | XMS_ITS | Encounter Summary ---
Author Organization [facility] Address [address] [place] [address] Care Team Providers Care Acid Correction Hand Name Role Phone Sharon Vides Primary Care Provider Brennan Castro MD Primary Care Provider Unavailab Hayden Montes MD Unavailable [phone] Pallavi Flood NP Unavailable +1- [phone] Caitlyn Bowie MD Primary Care Provider Johnathon shaver Encounter Details Date Type Department Care Team Description 11/06/2018 Disability Attorney Report Medical Records [address] [place] [address] Abstract, Provider Social History Tobacco Use Types [...] on filedocumented in this encounter Care Teams Acid Correction Hand Relationship Specialty Start Date End Date Sharon Vides PCP - General Internal Medicine 08/02/18 05/26/20 Brennan Burnett MD PCP - General Internal Medicine 05/27/20 12/07/21 Caitlyn Bowie MD [address] [place] [address] PCP - General Internal Medicine 12/08/21 Hayden Shah MD [address] [place] [address] Specialist Cardiovascular Disease 09/01/20 Pallavi Flood NP [address] [place] [address] Cardiology 09/01/20 documented as of this encounter
--- OUTSIDE RECORDS SUMMARY | 2024-09-09 01:42 | XMS_ITS | Encounter Summary ---
Author Organization [facility] Address [address] [place] [address] Care Team Providers Care Aircraft Load Controller Name Role Phone Caitlyn Bowie MD Primary Care Provider +1- [phone] Encounter Details Date Type Department Care Team (Late st Contact Info) Description 11/09/2020 Scanned Document INTERFACE DEFAULT [address] [place] [address] System, Provider Not In Social History Tobacco [...] Description 09/30/2024 8:30 PM EDT Procedure visit [facility] [address] [place] [address] [address] [place] [address] 10/31/2024 1:00 PM EDT Tele[facility]icine [facility] 240 [facility] [address] [place] [address] Ronald Mills MD 240 [facility] A1 [place] [address] documented as of this encounter Visit Diagnoses Not on filedocumented in this encounter Additional Health Concerns Infection Onset Date Last Indicated Resolved Time COVID-19 03/05/2022 03/05/2022 03/15/2022 7:18 PM EDT Assessment Noted Time PHQ-9 Depression Total Score: 2 11/07/19 19 2:06 PM EDT documented as of this encounter Care Teams Aircraft Load Controller Relationship Specialty Start Date End Date Caitlyn Bowie MD [address] [address] PCP - General Internal Medicine 05/06/21 documented as of this encounter
--- OUTSIDE RECORDS SUMMARY | 2024-09-09 01:42 | XMS_ITS | Encounter Summary ---
Author Organization [facility] and [facility] Address [address] [place] [address] Care Team Providers Care Power Plant Operators Supervisor Name Role Phone Caitlyn Bowie MD Primary Care Provider +1- [phone] Encounter Details Date Type Department Care Team (Late st Contact Info) Description 02/02/2018 Scanned Document [facility] Health Information Management [address] [place] [address] External, Provider Social History Tobacco Use Types [...] Description 09/30/2024 8:30 PM EDT Procedure visit [facility] [address] [place] [address] [address] [place] [address] 10/31/2024 1:00 PM EDT Telemedicine Cancer Center at [facility] 240 [facility] Building [address] [place], [place] [address] Ronald Mills MD 240 [facility] A1 [place] [address] documented as of this encounter [...] as of this encounter Care Teams Power Plant Operators Supervisor Relationship Specialty Start Date End Date Caitlyn Bowie MD 3400 [facility] 1 [place] [address] PCP - General Internal Medicine 05/06/21 Henry Kelly MD Pulmonary Department 175 [facility], [address] [place] [address] Physician Pulmonary Disease 09/06/17 06/22/20 documented as of this encounter
--- OUTSIDE RECORDS SUMMARY | 2024-09-09 01:42 | XMS_ITS | Encounter Summary ---
Author Organization [facility] Address [address] [place] [address] Care Team Providers Care Applied Psychology Professor Name Role Phone Brennan Burnett MD Primary Care Provider Unavailab Hayden Montes MD Unavailable [phone] Pallavi Flood NP Unavailable [phone]- [phone] Caitlyn Bowie MD Primary Care Provider Unava ilable Encounter Details Date Type Department Care Team Description 09/30/2020 [facility] Medical Records [address] [place] [address] Social History Tobacco Use Types Packs/Day Years [...] on filedocumented in this encounter Care Teams Applied Psychology Professor Relationship Specialty Start Date End Date Brennan Burnett MD PCP - General Internal Medicine 05/27/20 12/07/21 Caitlyn Bowie MD [address] [place] [address] PCP - General Internal Medicine 12/08/21 Hayden Shah MD [address] [place] [address] Specialist Cardiovascular Disease 09/01/20 Pallavi Flood NP [address] [place] [address] Cardiology 09/01/20 documented as of this encounter
--- OUTSIDE RECORDS SUMMARY | 2024-09-09 01:43 | XMS_ITS | Encounter Summary ---
Author Organization [facility] and [facility] Address [address] [place] [address] Care Team Providers Care Career Services Coordinator Name Role Phone Caitlyn Bowie MD Primary Care Provider +1- [phone] Reason for Visit * Reason Comments Triage Encounter Details Date Type Department Care Team (Late st Contact Info) Description 10/18/2021 Telephone [facility] [address] - [address] [phone] Ronald Mills MD [address] [place] [address] Triage Social History Tobacco Use Types [...] Description 09/30/2024 8:30 PM EDT Procedure visit [facility] [address] [place] [address] [address] [place] [address] 10/31/2024 1:00 PM EDT Telemedicine [facility] at [facility] 240 [facility] [address] [place], [place] [address] Ronald Mills MD 240 [facility] A1 [place] [address] documented as of this encounter Visit Diagnoses Not on filedocumented in this encounter Additional Health Concerns Infection Onset Date Last Indicated Resolved Time COVID-19 03/05/2022 03/05/2022 03/15/2022 7:18 PM EDT Assessment Noted Time PHQ-9 Depression Total Score: 2 11/07/19 19 2:06 PM EDT documented as of this encounter Care Teams Career Services Coordinator Relationship Specialty Start Date End Date Caitlyn Bowie MD [address] [address] PCP - General Internal Medicine 05/06/21 documented as of this encounter
--- OUTSIDE RECORDS SUMMARY | 2024-09-09 01:43 | XMS_ITS | Encounter Summary ---
Author Organization [facility] Address [address] [place] [address] Care Team Providers Care Rat Breeder Name Role Phone Caitlyn Bowie MD Primary Care Provider +1- [phone] Encounter Details Date Type Department Care Team (Late st Contact Info) Description 10/08/2021 Scanned Document INTERFACE DEFAULT [address] [place] [address] System, Provider Not In Social History Tobacco [...] Description 09/30/2024 8:30 PM EDT Procedure visit [facility] [address] [place] [address] [address] [place] [address] 10/31/2024 1:00 PM EDT Telemedicine [facility] at [facility] 240 [facility] [address] [place] [address] Ronald Mills MD 240 [facility] A1 [place] [address] documented as of this encounter Procedures Procedure [...] as of this encounter Care Teams Rat Breeder Relationship Specialty Start Date End Date Caitlyn Bowie MD [facility] [address] [address] PCP - General Internal Medicine 05/06/21 documented as of this encounter
--- OUTSIDE RECORDS SUMMARY | 2024-09-09 01:43 | XMS_ITS | Encounter Summary ---
Author Organization [facility] Address [address] [place] [address] Care Team Providers Care Outboard Motor Inspector Name Role Phone Caitlyn Bowie MD Primary Care Provider +1- [phone] Encounter Details Date Type Department Care Team (Late st Contact Info) Description 10/29/2021 Scanned Document COUNTS INCLUDE 234 [facility] AT [facility] Health Information Management [address] [place] [address] External, Provider Social History Tobacco Use Types [...] Description 09/30/2024 8:30 PM EDT Procedure visit [facility] [address] [place] [address] [address] [place] [address] 10/31/2024 1:00 PM EDT Telemedicine [facility] at [facility] 240 [facility] [address] [place] [address] Ronald Mills MD 240 [facility] A1 [place] [address] documented as of this encounter [...] documented as of this encounter Care Teams Outboard Motor Inspector Relationship Specialty Start Date End Date Caitlyn Bowie MD [address] [address] PCP - General Internal Medicine 05/06/21 documented as of this encounter
--- OUTSIDE RECORDS SUMMARY | 2024-09-09 01:43 | XMS_ITS | Encounter Summary ---
Author Organization [facility] Address [address] [place] [address] Care Team Providers Care Butter Printer Name Role Phone Caitlyn Bowie MD Primary Care Provider +1- [phone] Encounter Details Date Type Department Care Team (Late st Contact Info) Description 07/26/2018 Scanned Document [facility] Health Information Management [address] [place] [address] External, Provider Social History Tobacco Use Types [...] Description 09/30/2024 8:30 PM EDT Procedure visit [facility] [address] [place] [address] [address] [place] [address] 10/31/2024 1:00 PM EDT Telemedicine [facility] 240 [facility] Building [address] [place], [place] [address] Ronald Mills MD 240 [facility] A1 [place] [address] documented as of this encounter [...] documented as of this encounter Care Teams Butter Printer Relationship Specialty Start Date End Date Caitlyn Bowie MD 3400 [facility] 1 [place] [address] PCP - General Internal Medicine 05/06/21 Henry Kelly MD Pulmonary Department 175 [facility], [address] [place] [address] Physician Pulmonary Disease 09/06/17 06/22/20 documented as of this encounter
--- OUTSIDE RECORDS SUMMARY | 2024-09-09 01:43 | XMS_ITS | Encounter Summary ---
Author Organization [facility] and [facility] Address [address] [place] [address] Care Team Providers Care Issuing Operator Name Role Phone Caitlyn Bowie MD Primary Care Provider +1- [phone] Encounter Details Date Type Department Care Team (Late st Contact Info) Description 11/18/2021 Scanned Document INTERFACE DEFAULT [address] [place] [address] System, Provider Not In Social History Tobacco [...] Description 09/30/2024 8:30 PM EDT Procedure visit [facility] [address] [place] [address] [address] [place] [address] 10/31/2024 1:00 PM EDT Tele[facility] 240 [facility] Building [address] [place] [address] Ronald Mills MD 240 [facility] A1 [place] [address] documented as of this encounter Visit Diagnoses Not on filedocumented in this encounter Additional Health Concerns Infection Onset Date Last Indicated Resolved Time COVID-19 03/05/2022 03/05/2022 03/15/2022 7:18 PM EDT Assessment Noted Time PHQ-9 Depression Total Score: 2 11/07/19 19 2:06 PM EDT documented as of this encounter Care Teams Issuing Operator Relationship Specialty Start Date End Date Caitlyn Bowie MD [address] [address] PCP - General Internal Medicine 05/06/21 documented as of this encounter
--- OUTSIDE RECORDS SUMMARY | 2024-09-09 01:43 | XMS_ITS | Encounter Summary ---
Author Organization [facility] and [facility] Address [address] [place] [address] Care Team Providers Care Joy Operator Name Role Phone Caitlyn Bowie MD Primary Care Provider +1- [phone] Encounter Details Date Type Department Care Team (Late st Contact Info) Description 07/30/2018 Scanned Document [facility] Health Information Management [address] [place] [address] External, Provider Social History Tobacco Use Types [...] 09/30/2024 8:30 PM EDT Procedure visit [facility] [address] [place] [address] [address] [place] [address] 10/31/2024 1:00 PM EDT Telemedicine [facility] at [facility] 240 [facility] Building [address] [place], [place] [address] Ronald Mills MD 240 [facility] A1 [place] [address] documented as of this encounter [...] documented as of this encounter Care Teams Joy Operator Relationship Specialty Start Date End Date Caitlyn Bowie MD 3400 [facility] 1 [place] [address] PCP - General Internal Medicine 05/06/21 Henry Kelly MD Pulmonary Department 175 [facility], [address] [place] [address] Physician Pulmonary Disease 09/06/17 06/22/20 documented as of this encounter
--- OUTSIDE RECORDS SUMMARY | 2024-09-09 01:43 | XMS_ITS | Clinical Summary ---
Author Organization [facility] Address [address] [place] [address] Care Team Providers Care Photographer'S Model Name Role Phone Caitlyn Bowie MD Primary Care Provider +1- [phone] Allergies Active Allergy Reactions Criticality Noted Date [...] Breath High 05/09/2008 Bronchospasm or Wheezing Ipratropium [place] Unknown/Patient and Family Unable to Define Medium [...] 1 capsule by mouth daily. Active B Iudlzsj-M-Sjkeb Acid (STRESS 500 B-COMPLEX PO) Take 1 [...] age to complete this topic Care Teams Photographer'S Model Relationship Specialty Start Date End Date Caitlyn Bowie MD [facility] [place] [address] PCP - General Internal Medicine 03/20/23
--- OUTSIDE RECORDS SUMMARY | 2024-09-09 01:43 | XMS_ITS | Encounter Summary ---
Author Organization [facility] Address [address] [place] [address] Care Team Providers Care Financial Aid Director Name Role Phone Caitlyn Bowie MD Primary Care Provider +1- [phone] Encounter Details Date Type Department Care Team (Late st Contact Info) Description 10/15/2018 Scanned Document [facility] Health Information Management [address] [place] [address] External, Provider Social History Tobacco Use Types [...] Description 09/30/2024 8:30 PM EDT Procedure visit [facility] [address] [place] [address] [address] [place] [address] 10/31/2024 1:00 PM EDT Telemedicine [facility] at [facility] 240 [facility] Building [address] [place], [place] [address] Ronald Mills MD 240 [facility] A1 [place] [address] documented as of this encounter Visit Diagnoses Not on filedocumented in this encounter Additional Health Concerns Infection Onset Date Last Indicated Resolved Time COVID-19 03/05/2022 03/05/2022 03/15/2022 7:18 PM EDT documented as of this encounter Care Teams Financial Aid Director Relationship Specialty Start Date End Date Caitlyn Bowie MD 3400 [facility] 1 [place] [address] PCP - General Internal Medicine 05/06/21 Henry Kelly MD Pulmonary Department 175 [facility], [address] [place] [address] Physician Pulmonary Disease 09/06/17 06/22/20 documented as of this encounter
--- OUTSIDE RECORDS SUMMARY | 2024-09-09 01:43 | XMS_ITS | Encounter Summary ---
Author Organization [facility] and [facility] Address [address] [place] [address] Care Team Providers Care Log Roller Name Role Phone Caitlyn Bowie MD Primary Care Provider +1- [phone] Reason for Visit * Reason Comments Advice Only Encounter Details Date Type Department Care Team ([facility] st Contact Info) Description 06/01/2021 Telephone [facility] [address] [phone] Ronald Mills MD [address] [place] [phone] Advice Only Social History Tobacco Use [...] added that she's called before and sent ozuke messages but hasn't received a reply,[phone]. documented in this encounter Plan of Treatment Upcoming Encounters Date Type Department Care Team (Late st Contact Info) Description 09/30/2024 8:30 PM EDT Procedure visit [facility] [address] [place] [address] [address] [place] [address] 10/31/2024 1:00 PM EDT Telemedicine [facility] at [facility] 240 [facility] [address] [place], [place] [address] Ronald Mills MD 240 [facility] A1 [place] [address] documented as of this encounter Visit Diagnoses Not on filedocumented in this encounter Additional Health Concerns Infection Onset Date Last Indicated Resolved Time COVID-19 03/05/2022 03/05/2022 03/15/2022 7:18 PM EDT Assessment Noted Time PHQ-9 Depression Total Score: 2 11/07/19 19 2:06 PM EDT documented as of this encounter Care Teams Log Roller Relationship Specialty Start Date End Date Caitlyn Bowie MD [address] [address] PCP - General Internal Medicine 05/06/21 documented as of this encounter
--- OUTSIDE RECORDS SUMMARY | 2024-09-09 01:43 | XMS_ITS | Encounter Summary ---
Author Organization [facility] Address [address] [place] [address] Care Team Providers Care Nurse Supervisor Name Role Phone Caitlyn Bowie MD Primary Care Provider +1- [phone] Encounter Details Date Type Department Care Team (Late Contact Info) Description 11/18/2021 Scanned Document [facility] Health Information Management [address] [place] [address] External, Provider Social History Tobacco Use Types [...] Description 09/30/2024 8:30 PM EDT Procedure visit [facility] [address] [place] [address] [address] [place] [address] 10/31/2024 1:00 PM EDT Telemedicine [facility] at [facility] [address] [facility] [address] [place] [address] Ronald Mills MD 240 [facility] [address]1 [place] [address] documented as of this encounter Visit Diagnoses Not on filedocumented in this encounter Additional Health Concerns Infection Onset Date Last Indicated Resolved Time COVID-19 03/05/2022 03/05/2022 03/15/2022 7:18 PM EDT Assessment Noted Time PHQ-9 Depression Total Score: 2 11/07/19 19 2:06 PM EDT documented as of this encounter Care Teams Nurse Supervisor Relationship Specialty Start Date End Date Caitlyn Bowie MD [address] [address] PCP - General Internal Medicine 05/06/21 documented as of this encounter
--- OUTSIDE RECORDS SUMMARY | 2024-09-09 01:43 | XMS_ITS | Encounter Summary ---
Author Organization [facility] and [facility] Address [address] [place] [address] Care Team Providers Care Tennis Net Maker Name Role Phone Caitlyn Bowie MD Primary Care Provider +1- [phone] Encounter Details Date Type Department Care Team (Late st Contact Info) Description 01/27/2018 Scanned Document [facility] Health Information Management [address] [place] [address] External, Provider Social History Tobacco Use Types [...] Description 09/30/2024 8:30 PM EDT Procedure visit [facility] [address] [place] [address] [address] [place] [address] 10/31/2024 1:00 PM EDT Telemedicine [facility] 240 [facility] Building [address] [place], [place] [address] Ronald Mills MD 240 [facility] A1 [place] [address] documented as of this encounter Visit Diagnoses Not on filedocumented in this encounter Additional Health Concerns Infection Onset Date Last Indicated Resolved Time COVID-19 03/05/2022 03/05/2022 03/15/2022 7:18 PM EDT documented as of this encounter Care Teams Tennis Net Maker Relationship Specialty Start Date End Date Caitlyn Bowie MD 3400 [facility] 1 [place] [address] PCP - General Internal Medicine 05/06/21 Henry Kelly MD Pulmonary Department [address] [employer], [address] [place] [address] Physician Pulmonary Disease 09/06/17 06/22/20 documented as of this encounter
--- OUTSIDE RECORDS SUMMARY | 2024-09-09 01:43 | XMS_ITS | Encounter Summary ---
Author Organization [facility] Address [address] [place] [address] Care Team Providers Care Salvationist Name Role Phone Sharon Vides Primary Care Provider Brennan Castro MD Primary Care Provider Unavailab Hayden Montes MD Unavailable [phone] Pallavi Flood NP Unavailable [phone]- [phone] Caitlyn Bowie MD Primary Care Provider Johnathon shaver Encounter Details Date Type Department Care Team Description 03/13/2019 Release of Information Medical Records [address] [place] [address] Abstract, Provider Social History Tobacco Use Types [...] on filedocumented in this encounter Care Teams Salvationist Relationship Specialty Start Date End Date Sharon Vides PCP - General Internal Medicine 08/02/18 05/26/20 Brennan Burnett MD PCP - General Internal Medicine 05/27/20 12/07/21 Caitlyn Bowie MD [address] [place] [address] PCP - General Internal Medicine 12/08/21 Hayden Shah MD [address] [place] [address] Specialist Cardiovascular Disease 09/01/20 Pallavi Flood NP [address] [place] [address] Cardiology 09/01/20 documented as of this encounter
--- OUTSIDE RECORDS SUMMARY | 2024-09-09 01:43 | XMS_ITS | Encounter Summary ---
Author Organization [facility] Address [address] [place] [address] Care Team Providers Care Dental Resident Name Role Phone Caitlyn Bowie MD Primary Care Provider +1- [phone] Encounter Details Date Type Department Care Team (Late st Contact Info) Description 08/07/2018 Scanned Document [facility] Health Information Management [address] [place] [address] External, Provider Social History Tobacco Use Types [...] Description 09/30/2024 8:30 PM EDT Procedure visit [facility] [address] [place] [address] [address] [place] [address] 10/31/2024 1:00 PM EDT [facility] 240 [facility] Building [address] [place], [place] [phone] Ronald Mills MD 240 [facility] A1 [place] [address] documented as of this encounter Visit Diagnoses Not on filedocumented in this encounter Additional Health Concerns Infection Onset Date Last Indicated Resolved Time COVID-19 03/05/2022 03/05/2022 03/15/2022 7:18 PM EDT documented as of this encounter Care Teams Dental Resident Relationship Specialty Start Date End Date Caitlyn Bowie MD 3400 [facility] 1 [place] [address] PCP - General Internal Medicine 05/06/21 Henry Kelly MD Pulmonary Department 175 [facility], [address] [place] [address] Physician Pulmonary Disease 09/06/17 06/22/20 documented as of this encounter
--- OUTSIDE RECORDS SUMMARY | 2024-09-09 01:43 | XMS_ITS | Encounter Summary ---
Author Organization [facility] Address [address] [place] [address] Care Team Providers Care National Accounts Recruiter Name Role Phone Caitlyn Bowie MD Primary Care Provider +1- [phone] Encounter Details Date Type Department Care Team (Late st Contact Info) Description 01/26/2018 Scanned Document [facility] Health Information Management [address] [place] [address] External, Provider Social History Tobacco Use Types [...] Description 09/30/2024 8:30 PM EDT Procedure visit [facility] [address] [place] [address] [address] [place] [address] 10/31/2024 1:00 PM EDT [facility] 240 [facility] Building [address] [place], [place] [address] Ronald Mills MD 240 [facility] A1 [place] [address] documented as of this encounter [...] as of this encounter Care Teams National Accounts Recruiter Relationship Specialty Start Date End Date Caitlyn Bowie MD 3400 [facility] 1 [place] [address] PCP - General Internal Medicine 05/06/21 Henry Kelly MD Pulmonary Department 175 [facility], [address] [place] [address] Physician Pulmonary Disease 09/06/17 06/22/20 documented as of this encounter
--- OUTSIDE RECORDS SUMMARY | 2024-09-09 01:43 | XMS_ITS | Encounter Summary ---
Author Organization [facility] and [facility] Address [address] [place] [address] Care Team Providers Care Amf Mechanic Name Role Phone Caitlyn Bowie MD Primary Care Provider +1- [phone] Encounter Details Date Type Department Care Team (Late st Contact Info) Description 04/03/2018 Scanned Document [facility] [address] [place] [address] Provider, historical . Social History Tobacco Use [...] Description 09/30/2024 8:30 PM EDT Procedure visit [facility] [address] [place] [address] [address] [place] [address] 10/31/2024 1:00 PM EDT [facility] 240 [facility] Building [address] [place], [place] [address] Ronald Mills MD 240 [facility] A1 [place] [address] documented as of this [...] documented as of this encounter Care Teams Amf Mechanic Relationship Specialty Start Date End Date Caitlyn Bowie MD 3400 [facility] 1 [place] [address] PCP - General Internal Medicine 05/06/21 Henry Kelly MD Pulmonary Department 175 [facility], [address] [place] [address] Physician Pulmonary Disease 09/06/17 06/22/20 documented as of this encounter
--- OUTSIDE RECORDS SUMMARY | 2024-09-09 01:43 | XMS_ITS | Encounter Summary ---
Author Organization [facility] Address [address] [place] [address] Care Team Providers Care Precision Devices Inspector/Tester Name Role Phone Sharon Vides Primary Care Provider Unava ilable Brennan Burnett MD Primary Care Provider Unavailab Hayden Mnotes MD Unavailable [phone] Pallavi Flood NP Unavailable [phone]- [phone] Caitlyn Bowie MD Primary Care Provider Unava ilable Reason for Visit * Reason Onset Date Comments TEST RESULTS 12/07/2018 XRAY OF LUNGS Encounter Details Date Type Department Care Team Description 12/07/2018 Telephone Pulmonology - [place] 175 [facility] [address] [place] [address] Andre Benites PA-C 299 [facility] [address] [place] [address] TEST RESULTS (XRAY OF LUNGS) Social History [...] on filedocumented in this encounter Care Teams Precision Devices Inspector/Tester Relationship Specialty Start Date End Date Sharon Vides PCP - General Internal Medicine 08/02/18 05/26/20 Brennan Burnett MD PCP - General Internal Medicine 05/27/20 12/07/21 Caitlyn Bowie MD [address] [place] [address] PCP - General Internal Medicine 12/08/21 Hayden Shah MD [address] [place] [address] Specialist Cardiovascular Disease 09/01/20 Pallavi Flood NP [address] [place] [address] Cardiology 09/01/20 documented as of this encounter
--- OUTSIDE RECORDS SUMMARY | 2024-09-09 01:43 | XMS_ITS | Encounter Summary ---
Author Organization [facility] Address [address] [place] [address] Care Team Providers Care Mold Mover Name Role Phone Caitlyn Bowie MD Primary Care Provider +1- [phone] Encounter Details Date Type Department Care Team (Late st Contact Info) Description 11/19/2021 Scanned Document Cardiovascular Medicine at [address] [place] [address] Norma Renee MD [address] [place] [phone] Social History Tobacco Use Types Packs/Day Years [...] Description 09/30/2024 8:30 PM EDT Procedure visit [facility] [address] [place] [address] [address] [place] [address] 10/31/2024 1:00 PM EDT Telemedicine Cancer Center at [address] [place], [place] [address] Ronald Mills MD 240 [facility] [address] [place] [address] documented as of this encounter Visit Diagnoses Not on filedocumented in this encounter Additional Health Concerns Infection Onset Date Last Indicated Resolved Time COVID-19 03/05/2022 03/05/2022 03/15/2022 7:18 PM EDT Assessment Noted Time PHQ-9 Depression Total Score: 2 11/07/19 19 2:06 PM EDT documented as of this encounter Care Teams Mold Mover Relationship Specialty Start Date End Date Caitlyn Bowie MD [address] [address] PCP - General Internal Medicine 05/06/21 documented as of this encounter
--- OUTSIDE RECORDS SUMMARY | 2024-09-09 01:43 | XMS_ITS | Encounter Summary ---
Author Organization [facility] Address [address] [place] [address] Care Team Providers Care Inspector Balance Wheel Motion Name Role Phone Caitlyn Bowie MD Primary Care Provider +1- [phone] Encounter Details Date Type Department Care Team (Late st Contact Info) Description 04/16/2018 Scanned Document [facility] Health Information Management [address] [place] [address] External, Provider Social History Tobacco Use Types [...] Description 09/30/2024 8:30 PM EDT Procedure visit [facility] [address] [place] [address] [address] [place] [address] 10/31/2024 1:00 PM EDT [facility] 240 [facility] Building [address] [place], [place] [address] Ronald Mills MD 240 [facility] [address]1 [place] [address] documented as of this encounter Visit Diagnoses Not on filedocumented in this encounter Additional Health Concerns Infection Onset Date Last Indicated Resolved Time COVID-19 03/05/2022 03/05/2022 03/15/2022 7:18 PM EDT documented as of this encounter Care Teams Inspector Balance Wheel Motion Relationship Specialty Start Date End Date Caitlyn Bowie MD 3400 [facility] 1 [place] [address] PCP - General Internal Medicine 05/06/21 Henry Kelly MD Pulmonary Department 175 [facility], [address] [place] [address] Physician Pulmonary Disease 09/06/17 06/22/20 documented as of this encounter
--- OUTSIDE RECORDS SUMMARY | 2024-09-09 01:43 | XMS_ITS | Encounter Summary ---
Author Organization [facility] Address [address] [place] [address] Care Team Providers Care Diamond Expert Name Role Phone Caitlyn Bowie MD Primary Care Provider +1- [phone] Encounter Details Date Type Department Care Team (Late st Contact Info) Description 02/19/2015 Scanned Document [facility] Health Information Management [address] [place] [address] External, Provider Social History Tobacco Use Types [...] Description 09/30/2024 8:30 PM EDT Procedure visit [facility] [address] [place] [address] [address] [place] [address] 10/31/2024 1:00 PM EDT Telemedicine [facility] 240 [facility] Building [address] [place], [place] [address] Ronald Mills MD 240 [facility] A1 [place] [address] documented as of this encounter Procedures Procedure Name Priority Date/Time Associated Diagnosis Comments LAB SCAN Routine 02/19/2015 documented in this encounter Results * Lab Scan (02/19/2015) Blood specimen (specimen) us Provider External LAB BLOOD ORDERABLES Final Res ult Performing Organization Address City/State/[facility] Co de Phone Number [facility] documented in this encounter Visit Diagnoses Not on filedocumented in this encounter Additional Health Concerns Infection Onset Date Last Indicated Resolved Time COVID-19 03/05/2022 03/05/2022 03/15/2022 7:1 8 PM EDT documented as of this encounter Care Teams Diamond Expert Relationship Specialty Start Date End Date Caitlyn Bowie MD 3400 [facility] [address] 1 [place] [address] PCP - General Internal Medicine 05/06/21 Henry Kelly MD Pulmonary Department 175 [facility], [address] [place] [address] Physician Pulmonary Disease 09/06/17 06/22/20 documented as of this encounter
--- OUTSIDE RECORDS SUMMARY | 2024-09-09 01:43 | XMS_ITS | Encounter Summary ---
Author Organization [facility] Address [address] [place] [address] Care Team Providers Care Ethnographic Materials Conservator Name Role Phone Caitlyn Bowie MD Primary Care Provider +1- [phone] Encounter Details Date Type Department Care Team (Late st Contact Info) Description 01/28/2018 Scanned Document [facility] Health Information Management [address] [place] [address] External, Provider Social History Tobacco Use Types [...] Description 09/30/2024 8:30 PM EDT Procedure visit [facility] [address] [place] [address] [address] [place] [address] 10/31/2024 1:00 PM EDT Telemedicine [facility] at [facility] 240 [facility] Building [address] [place], [place] [address] Ronald Mills MD 240 [facility] A1 [place] [address] documented as of this encounter [...] documented as of this encounter Care Teams Ethnographic Materials Conservator Relationship Specialty Start Date End Date Caitlyn Bowie MD 3400 [facility] 1 [place] [address] PCP - General Internal Medicine 05/06/21 Henry Kelly MD Pulmonary Department 175 [facility], [address] [place] [address] Physician Pulmonary Disease 09/06/17 06/22/20 documented as of this encounter
--- OUTSIDE RECORDS SUMMARY | 2024-09-09 01:43 | XMS_ITS | Encounter Summary ---
Author Organization [facility] and [facility] Address [address] [place] [address] Care Team Providers Care Ceo Ziff Davis Name Role Phone Caitlyn Bowie MD Primary Care Provider +1- [phone] Encounter Details Date Type Department Care Team (Late st Contact Info) Description 12/04/2014 Scanned Document [facility] Health Information Management [address] [place] [address] External, Provider Social History Tobacco Use Types [...] Description 09/30/2024 8:30 PM EDT Procedure visit [facility] [address] [place] [address] [address] [place] [address] 10/31/2024 1:00 PM EDT Telemedicine [facility] at [facility] 240 [facility] Building [address] [place], [place] [address] Ronald Mills MD 240 [facility] A1 [place] [address] documented as of this encounter Procedures Procedure Name Priority Date/Time Associated Diagnosis Comments LAB SCAN Routine 12/04/2014 documented in this encounter Results * Lab Scan (12/04/2014) Blood specimen (specimen) us Provider External LAB BLOOD ORDERABLES Final Res ult Performing Organization Address City/State/[facility] Co de Phone Number [facility] documented in this encounter Visit Diagnoses Not on filedocumented in this encounter Additional Health Concerns Infection Onset Date Last Indicated Resolved Time COVID-19 03/05/2022 03/05/2022 03/15/2022 7:18 PM EDT documented as of this encounter Care Teams Ceo Ziff Davis Relationship Specialty Start Date End Date Caitlyn Bowie MD 3400 [facility] [address] 1 [place] [address] PCP - General Internal Medicine 05/06/21 Henry Kelly MD Pulmonary Department 175 [facility], [address] [place] [address] Physician Pulmonary Disease 09/06/17 06/22/20 documented as of this encounter
--- OUTSIDE RECORDS SUMMARY | 2024-09-09 01:43 | XMS_ITS | Encounter Summary ---
Author Organization [facility] Address [address] [place] [address] Care Team Providers Care Laborer Construction Or Leak Gang Name Role Phone Caitlyn Bowie MD Primary Care Provider +1- [phone] Encounter Details Date Type Department Care Team (Late st Contact Info) Description 06/08/2021 Scanned Document INTERFACE DEFAULT [address] [place] [address] System, Provider Not In Social History Tobacco [...] Description 09/30/2024 8:30 PM EDT Procedure visit [facility] [address] [place] [address] [address] [place] [address] 10/31/2024 1:00 PM EDT [facility] 240 [facility] [address] [place] [address] Ronald Mills MD 240 [facility] A1 [place] [address] documented as of this encounter Procedures Procedure [...] documented as of this encounter Care Teams Laborer Construction Or Leak Gang Relationship Specialty Start Date End Date Caitlyn Bowie MD [address] [address] PCP - General Internal Medicine 05/06/21 documented as of this encounter
--- OUTSIDE RECORDS SUMMARY | 2024-09-09 01:43 | XMS_ITS | Encounter Summary ---
Author Organization [facility] Address [address] [place] [address] Care Team Providers Care Construction Person Name Role Phone Caitlyn Bowie MD Primary Care Provider +1- [phone] Encounter Details Date Type Department Care Team (Late st Contact Info) Description 05/05/2021 Scanned Document INTERFACE DEFAULT [address] [place] [address] System, Provider Not In Social History Tobacco [...] 09/30/2024 8:30 PM EDT Procedure visit [facility] [address] [place] [address] [address] [place] [address] 10/31/2024 1:00 PM EDT Telemedicine Cancer Center at [facility] 240 [facility] [address] [place] [address] Ronald Mills MD 240 [facility] A1 [place] [address] documented as of this encounter Visit Diagnoses Not on filedocumented in this encounter Additional Health Concerns Infection Onset Date Last Indicated Resolved Time COVID-19 03/05/2022 03/05/2022 03/15/2022 7:18 PM EDT Assessment Noted Time PHQ-9 Depression Total Score: 2 11/07/19 19 2:06 PM EDT documented as of this encounter Care Teams Construction Person Relationship Specialty Start Date End Date Caitlyn Bowie MD [address] [address] PCP - General Internal Medicine 05/06/21 documented as of this encounter
--- OUTSIDE RECORDS SUMMARY | 2024-09-09 01:43 | XMS_ITS | Encounter Summary ---
Author Organization [facility] Address [address] [place] [address] Care Team Providers Care Bone Process Operator Name Role Phone Caitlyn Bowie MD Primary Care Provider +1- [phone] Encounter Details Date Type Department Care Team (Late st Contact Info) Description 04/18/2018 Scanned Document [facility] Health Information Management [address] [place] [address] External, Provider Social History Tobacco Use Types [...] Description 09/30/2024 8:30 PM EDT Procedure visit [facility] [address] [place] [address] [address] [place] [address] 10/31/2024 1:00 PM EDT Telemedicine [facility] 240 [facility] [address] [place], [place] [address] Ronald Mills MD 240 [facility] A1 [place] [address] documented as of this encounter [...] documented as of this encounter Care Teams Bone Process Operator Relationship Specialty Start Date End Date Caitlyn Bowie MD 3400 [facility] 1 [place] [address] PCP - General Internal Medicine 05/06/21 Henry Kelly MD Pulmonary Department 175 [facility], [address] [place] [address] Physician Pulmonary Disease 09/06/17 06/22/20 documented as of this encounter
--- OUTSIDE RECORDS SUMMARY | 2024-09-09 01:43 | XMS_ITS | Encounter Summary ---
Author Organization [facility] and [facility] Address [address] [place] [address] Care Team Providers Care Matrix Inspector Name Role Phone Caitlyn Bowie MD Primary Care Provider +1- [phone] Reason for Visit * Reason Comments FYI Encounter Details Date Type Department Care Team (Late st Contact Info) Description 05/24/2021 Telephone [facility] at [facility] at [address] [place] [address] [address] [place], [place] [id number] Solo Henry MD [address] [place] [phone] FYI Social History Tobacco Use Types [...] Description 09/30/2024 8:30 PM EDT Procedure visit [facility] [address] [place] [address] [address] [place] [address] 10/31/2024 1:00 PM EDT Telemedicine Cancer Center at [facility] 240 [facility] [address] [place] [address] Ronald Mills MD 240 [facility] Max [address] [place] [address] documented as of this encounter Visit Diagnoses Not on filedocumented in this encounter Additional Health Concerns Infection Onset Date Last Indicated Resolved Time COVID-19 03/05/2022 03/05/2022 03/15/2022 7:18 PM EDT Assessment Noted Time PHQ-9 Depression Total Score: 2 11/07/19 19 2:06 PM EDT documented as of this encounter Care Teams Matrix Inspector Relationship Specialty Start Date End Date Caitlyn Bowie MD 3400 [facility] 1 [place] [address] PCP - General Internal Medicine 05/06/21 documented as of this encounter
--- OUTSIDE RECORDS SUMMARY | 2024-09-09 01:43 | XMS_ITS | Encounter Summary ---
Author Organization [facility] Address [address] [place] [address] Care Team Providers Care Naval Aircrewman Mechanical Name Role Phone Sharon Vides Primary Care Provider Brennan Castro MD Primary Care Provider Unavailab Hayden Montes MD Unavailable [phone] Pallavi Flood NP Unavailable +1- [phone] Caitlyn Bowie MD Primary Care Provider Johnathon shaver Encounter Details Date Type Department Care Team Description 01/26/2019 [facility] Medical Records [address] [place] [address] Landen Aaron DO Social History Tobacco Use [...] on filedocumented in this encounter Care Teams Naval Aircrewman Mechanical Relationship Specialty Start Date End Date Sharon Vides PCP - General Internal Medicine 08/02/18 05/26/20 Brennan Burnett MD PCP - General Internal Medicine 05/27/20 12/07/21 Caitlyn Bowie MD [address] [place] [address] PCP - General Internal Medicine 12/08/21 Hayden Shah MD [address] [place], [place] [phone] Specialist Cardiovascular Disease 09/01/20 Pallavi Flood NP [address] [place], [place] [phone] Cardiology 09/01/20 documented as of this encounter
--- OUTSIDE RECORDS SUMMARY | 2024-09-09 01:43 | XMS_ITS | Encounter Summary ---
Author Organization [facility] and [facility] Address [address] [place] [address] Care Team Providers Care Stock Preparation Supervisor Name Role Phone Caitlyn Bowie MD Primary Care Provider +1- [phone] Encounter Details Date Type Department Care Team (Late st Contact Info) Description 01/26/2018 Scanned Document [facility] Health Information Management [address] [place] [address] External, Provider Social History Tobacco Use Types [...] Description 09/30/2024 8:30 PM EDT Procedure visit [facility] [address] [place] [address] [address] [place] [address] 10/31/2024 1:00 PM EDT Telemedicine Cancer Center at [facility] 240 [facility] Building [address] [place], [place] [phone] Ronald Mills MD 240 [facility] A1 [place] [address] documented as of this encounter [...] documented as of this encounter Care Teams Stock Preparation Supervisor Relationship Specialty Start Date End Date Caitlyn Bowie MD 3400 [facility] 1 [place] [address] PCP - General Internal Medicine 05/06/21 Henry Kelly MD Pulmonary Department 175 [facility], [address] [place] [address] Physician Pulmonary Disease 09/06/17 06/22/20 documented as of this encounter
--- OUTSIDE RECORDS SUMMARY | 2024-09-09 01:43 | XMS_ITS | Encounter Summary ---
Author Organization [facility] and [facility] [place] [facility] Address [address] [place] [address] Care Team Providers Care Crop Scout Name Role Phone Caitlyn Bowie MD Primary Care Provider +1- [phone] Encounter Details Date Type Department Care Team (Late st Contact Info) Description 03/13/2015 Scanned Document ON [facility] Health Information Management [address] [place] [address] External, Provider Social History Tobacco Use Types [...] Description 09/30/2024 8:30 PM EDT Procedure visit [facility] [address] [place] [address] [address] [place] [address] 10/31/2024 1:00 PM EDT Telemedicine Cancer Center at [facility] 240 [facility] Building [address] [place], [place] [address] Ronald Mills MD 240 [facility] A1 [place] [address] documented as of this encounter Procedures Procedure Name Priority Date/Time Associated Diagnosis Comments LAB SCAN Routine 02/16/2015 LAB SCAN Routine 02/16/2015 documented in this encounter Results * Lab Scan (02/16/2015) Blood specimen (specimen) Provider External LAB BLOOD ORDERABLES Final Res ult Performing Organization Address [facility] Co de Phone Number [facility] * Lab Scan (02/16/2015) Blood specimen (specimen) Provider External LAB BLOOD ORDERABLES Final Res ult Performing Organization Address [facility] Co de Phone Number [facility] documented in this encounter Visit Diagnoses Not on filedocumented in this encounter Additional Health Concerns Infection Onset Date Last Indicated Resolved Time COVID-19 03/05/2022 03/05/2022 03/15/2022 7:18 PM EDT documented as of this encounter Care Teams Crop Scout Relationship Specialty Start Date End Date Caitlyn Bowie MD 3400 [facility] 1 [place] [address] PCP - General Internal Medicine 05/06/21 Henry Kelly MD Pulmonary Department 175 [facility], [address] [place] [address] Physician Pulmonary Disease 09/06/17 06/22/20 documented as of this encounter
--- OUTSIDE RECORDS SUMMARY | 2024-09-09 01:43 | XMS_ITS | Encounter Summary ---
Author Organization [facility] Address [address] [place] [address] Care Team Providers Care Oil Bay Technician Name Role Phone Caitlyn Bowie MD Primary Care Provider +1- [phone] Encounter Details Date Type Department Care Team (Late st Contact Info) Description 03/11/2015 Scanned Document [facility] Health Information Management [address] [place] [address] External, Provider Social History Tobacco Use Types [...] Description 09/30/2024 8:30 PM EDT Procedure visit [facility] [address] [place] [address] [address] [place] [address] 10/31/2024 1:00 PM EDT Telemedicine Cancer Center at [facility] 240 [facility] Building [address] [place], [place] [address] Ronald Mills MD 240 [facility] A1 [place] [address] documented as of this encounter Procedures Procedure Name Priority Date/Time Associated Diagnosis Comments LAB SCAN Routine 03/11/2015 documented in this encounter Results * Lab Scan (03/11/2015) Blood specimen (specimen) us Provider External LAB BLOOD ORDERABLES Edited Re sult - Final [facility] [place], [facility] documented in this encounter Visit Diagnoses Not on filedocumented in this encounter Additional Health Concerns Infection Onset Date Last Indicated Resolved Time COVID-19 03/05/2022 03/05/2022 03/15/2022 7:18 PM EDT documented as of this encounter Care Teams Oil Bay Technician Relationship Specialty Start Date End Date Caitlyn Bowie MD 3400 [facility] 1 [place] [address] PCP - General Internal Medicine 05/06/21 Henry Kelly MD Pulmonary Department 175 [facility], [address] [place] [address] Physician Pulmonary Disease 09/06/17 06/22/20 documented as of this encounter
--- OUTSIDE RECORDS SUMMARY | 2024-09-09 01:43 | XMS_ITS | Encounter Summary ---
Author Organization [facility] and [facility] Address [address] [place] [address] Care Team Providers Care Car Ferry Master Name Role Phone Caitlyn Bowie MD Primary Care Provider +1- [phone] Encounter Details Date Type Department Care Team (Late st Contact Info) Description 03/26/2015 Scanned Document Cardiovascular Medicine at [address] [place] [address] Norma Renee MD [address] [place] [phone] Social History Tobacco Use Types Packs/Day Years [...] Description 09/30/2024 8:30 PM EDT Procedure visit [facility] [address] [place] [address] [address] [place] [address] 10/31/2024 1:00 PM EDT Telemedicine Cancer Center at [facility] 240 [facility] [address] [place] [address] Ronald Mills MD 240 [facility] [address] [place] [address] documented as of this encounter Visit Diagnoses Not on filedocumented in this encounter Additional Health Concerns Infection Onset Date Last Indicated Resolved Time COVID-19 03/05/2022 03/05/2022 03/15/2022 7:18 PM EDT documented as of this encounter Care Teams Car Ferry Master Relationship Specialty Start Date End Date Caitlyn Bowie MD 3400 [facility] 1 [place] [address] PCP - General Internal Medicine 05/06/21 Henry Kelly MD Pulmonary Department 175 [facility], [address] [place] [address] Physician Pulmonary Disease 09/06/17 06/22/20 documented as of this encounter
--- OUTSIDE RECORDS SUMMARY | 2024-09-09 01:43 | XMS_ITS | Encounter Summary ---
Author Organization [facility] Address [address] [place] [address] Care Team Providers Care Community Health Consultant Name Role Phone Caitlyn Bowie MD Primary Care Provider +1- [phone] Encounter Details Date Type Department Care Team (Late st Contact Info) Description 01/27/2018 Scanned Document [facility] Health Information Management [address] [place] [address] External, Provider Social History Tobacco Use Types [...] Description 09/30/2024 8:30 PM EDT Procedure visit [facility] [address] [place] [address] [address] [place] [address] 10/31/2024 1:00 PM EDT Telemedicine Cancer Center at [facility] 240 [facility] Building [address] [place], [place] [phone] Ronald Mills MD 240 [facility] A1 [place] [address] documented as of this encounter [...] as of this encounter Care Teams Community Health Consultant Relationship Specialty Start Date End Date Caitlyn Bowie MD 3400 [facility] 1 [place] [address] PCP - General Internal Medicine 05/06/21 Henry Kelly MD Pulmonary Department 175 [facility], [address] [place] [address] Physician Pulmonary Disease 09/06/17 06/22/20 documented as of this encounter
--- OUTSIDE RECORDS SUMMARY | 2024-09-09 01:43 | XMS_ITS | Encounter Summary ---
Author Organization [facility] Address [address] [place] [address] Care Team Providers Care Call Center Agent Name Role Phone Caitlyn Bowie MD Primary Care Provider +1- [phone] Encounter Details Date Type Department Care Team (Late st Contact Info) Description 07/28/2018 Scanned Document [facility] Health Information Management [address] [place] [address] External, Provider Social History Tobacco Use Types [...] Description 09/30/2024 8:30 PM EDT Procedure visit [facility] [address] [place] [address] [address] [place] [address] 10/31/2024 1:00 PM EDT Telemedicine Cancer Center at [facility] 240 [facility] Building [address] [place], [place] [address] Ronald Mills MD 240 [facility] A1 [place] [address] documented as of this encounter [...] documented as of this encounter Care Teams Call Center Agent Relationship Specialty Start Date End Date Caitlyn Bowie MD 3400 [facility] 1 [place] [address] PCP - General Internal Medicine 05/06/21 Henry Kelly MD Pulmonary Department 175 [facility], [address] [place] [address] Physician Pulmonary Disease 09/06/17 06/22/20 documented as of this encounter
--- OUTSIDE RECORDS SUMMARY | 2024-09-09 01:43 | XMS_ITS | Encounter Summary ---
Author Organization [facility] Address [address] [place] [address] Care Team Providers Care Sped Teacher Name Role Phone Caitlyn Bowie MD Primary Care Provider +1- [phone] Encounter Details Date Type Department Care Team (Late st Contact Info) Description 06/26/2018 Scanned Document [facility] Health Information Management [address] [place] [address] External, Provider Social History Tobacco Use Types [...] Description 09/30/2024 8:30 PM EDT Procedure visit [facility] [address] [place] [address] [address] [place] [address] 10/31/2024 1:00 PM EDT Telemedicine [facility] at [facility] 240 [facility] Building [address] [place], [place] [address] Ronald Mills MD 240 [facility] A1 [place] [address] documented as of this encounter Visit Diagnoses Not on filedocumented in this encounter Additional Health Concerns Infection Onset Date Last Indicated Resolved Time COVID-19 03/05/2022 03/05/2022 03/15/2022 7:18 PM EDT documented as of this encounter Care Teams Sped Teacher Relationship Specialty Start Date End Date Caitlyn Bowie MD 3400 [facility] 1 [place] [address] PCP - General Internal Medicine 05/06/21 Henry Kelly MD Pulmonary Department 175 [facility], [address] [place] [address] Physician Pulmonary Disease 09/06/17 06/22/20 documented as of this encounter
--- OUTSIDE RECORDS SUMMARY | 2024-09-09 01:43 | XMS_ITS | Encounter Summary ---
Author Organization [facility] and [facility] Address [address] [place] [address] Care Team Providers Care Head Start Assistant Teacher Name Role Phone Caitlyn Bowie MD Primary Care Provider +1- [phone] Encounter Details Date Type Department Care Team (Late st Contact Info) Description 05/27/2021 Telephone [facility] at [address] [address] Ronald Mills MD [address] [place] [address] Social History Tobacco Use Types Packs/Day [...] Description 09/30/2024 8:30 PM EDT Procedure visit [facility] [address] [place] [address] [address] [place] [address] 10/31/2024 1:00 PM EDT Telemedicine Cancer Center at [facility] [address] [facility] [address] [place], [place] [address] Ronald Mills MD 240 [facility] A1 [place] [address] documented as of this encounter [...] End Date Caitlyn Bowie MD [address] [address] PCP - General Internal Medicine 05/06/21 documented as of this encounter
--- OUTSIDE RECORDS SUMMARY | 2024-09-09 01:43 | XMS_ITS | Encounter Summary ---
Author Organization [facility] Address [address] [place] [address] Care Team Providers Care Lpn Rn Hospice Name Role Phone Caitlyn Bowie MD Primary Care Provider +1- [phone] Encounter Details Date Type Department Care Team (Late st Contact Info) Description 06/07/2021 Scanned Document Onco-Oncology Program at [address] [address] Norma Renee MD [address] [place] [address] 2 [place] [phone] Social History Tobacco Use Types Packs/Day Years [...] Description 09/30/2024 8:30 PM EDT Procedure visit [facility] [address] [place] [address] 10/31/2024 1:00 PM EDT Telemedicine Cancer Center at [address] [place], [place] [address] Ronald Mills MD 240 [facility] Max [address] [place] [address] documented as of this encounter Visit Diagnoses Not on filedocumented in this encounter Additional Health Concerns Infection Onset Date Last Indicated Resolved Time COVID-19 03/05/2022 03/05/2022 03/15/2022 7:18 PM EDT Assessment Noted Time PHQ-9 Depression Total Score: 2 11/07/19 19 2:06 PM EDT documented as of this encounter Care Teams Lpn Rn Hospice Relationship Specialty Start Date End Date Caitlyn Bowie MD [address] [address] PCP - General Internal Medicine 05/06/21 documented as of this encounter
--- OUTSIDE RECORDS SUMMARY | 2024-09-09 01:43 | XMS_ITS | Encounter Summary ---
Author Organization [facility] Address [address] [place] [address] Care Team Providers Care Carbider Name Role Phone Caitlyn Bowie MD Primary Care Provider +1- [phone] Encounter Details Date Type Department Care Team (Late st Contact Info) Description 01/28/2018 Scanned Document [facility] Health Information Management [address] [place] [phone] External, Provider Social History Tobacco Use Types [...] Description 09/30/2024 8:30 PM EDT Procedure visit [facility] [address] [place] [address] [address] [place] [address] 10/31/2024 1:00 PM EDT Telemedicine Cancer Center at [facility] 240 [facility] Building [address] [place], [place] [address] Ronald Mills MD 240 [facility] A1 [place] [address] documented as of this encounter Visit Diagnoses Not on filedocumented in this encounter Additional Health Concerns Infection Onset Date Last Indicated Resolved Time COVID-19 03/05/2022 03/05/2022 03/15/2022 7:18 PM EDT documented as of this encounter Care Teams Carbider Relationship Specialty Start Date End Date Caitlyn Bowie MD 3400 [facility] 1 [place] [address] PCP - General Internal Medicine 05/06/21 Henry Kelly MD Pulmonary Department 175 [facility], [address] [place] [address] Physician Pulmonary Disease 09/06/17 06/22/20 documented as of this encounter
--- OUTSIDE RECORDS SUMMARY | 2024-09-09 01:43 | XMS_ITS | Encounter Summary ---
Author Organization [facility] and [facility] Address [address] [place] [address] Care Team Providers Care Transmission Tester Name Role Phone Caitlyn Bowie MD Primary Care Provider +1- [phone] Encounter Details Date Type Department Care Team (Late st Contact Info) Description 06/07/2021 Scanned Document Onco-Oncology Program at [address] [address] Norma Renee MD [address] [place] [address] 2 [place] [phone] Social History Tobacco Use Types Packs/Day Years [...] Description 09/30/2024 8:30 PM EDT Procedure visit [facility] [address] [place] [address] 10/31/2024 1:00 PM EDT Telemedicine Cancer Center at [address] [place], [place] [address] Ronald Mills MD 240 [facility] Max [address]1 [place] [address] documented as of this encounter Visit Diagnoses Not on filedocumented in this encounter Additional Health Concerns Infection Onset Date Last Indicated Resolved Time COVID-19 03/05/2022 03/05/2022 03/15/2022 7:18 PM EDT Assessment Noted Time PHQ-9 Depression Total Score: 2 11/07/19 19 2:06 PM EDT documented as of this encounter Care Teams Transmission Tester Relationship Specialty Start Date End Date Caitlyn Bowie MD [address] [address] PCP - General Internal Medicine 05/06/21 documented as of this encounter
--- OUTSIDE RECORDS SUMMARY | 2024-09-09 01:43 | XMS_ITS | Encounter Summary ---
Author Organization [facility] and [facility] Address [address] [place] [address] Care Team Providers Care Store Leader Name Role Phone Caitlyn Bowie MD Primary Care Provider +1- [phone] Encounter Details Date Type Department Care Team (Late st Contact Info) Description 12/28/2021 Scanned Document INTERFACE DEFAULT [address] [place] [address] System, Provider Not In Social History Tobacco [...] Description 09/30/2024 8:30 PM EDT Procedure visit [facility] [address] [place] [address] [address] [place] [address] 10/31/2024 1:00 PM EDT Telemedicine [facility] at [facility] 240 [facility] [address] [place] [address] Ronald Mills MD 240 [facility] A1 [place] [address] documented as of this encounter Visit Diagnoses Not on filedocumented in this encounter Additional Health Concerns Infection Onset Date Last Indicated Resolved Time COVID-19 03/05/2022 03/05/2022 03/15/2022 7:18 PM EDT Assessment Noted Time PHQ-9 Depression Total Score: 2 11/07/19 19 2:06 PM EDT documented as of this encounter Care Teams Store Leader Relationship Specialty Start Date End Date Caitlyn Bowie MD [address] [address] PCP - General Internal Medicine 05/06/21 documented as of this encounter
--- OUTSIDE RECORDS SUMMARY | 2024-09-09 01:43 | XMS_ITS | Encounter Summary ---
Author Organization [facility] and [facility] Address [address] [place] [address] Care Team Providers Care Clother In Name Role Phone Caitlyn Bowie MD Primary Care Provider +1- [phone] Encounter Details Date Type Department Care Team (Late st Contact Info) Description 05/17/2021 Scanned Document Cancer Center at [address] [address] External, Provider Social History Tobacco Use Types [...] 09/30/2024 8:30 PM EDT Procedure visit [facility] [address] [place] [address] [place] [address] 10/31/2024 1:00 PM EDT Telemedicine Cancer Center at [address] [place], [place] [address] Ronald Mills MD [address] [address] documented as of this encounter [...] documented as of this encounter Care Teams Clother In Relationship Specialty Start Date End Date Caitlyn Bowie MD [address] [address] PCP - General Internal Medicine 05/06/21 documented as of this encounter
--- OUTSIDE RECORDS SUMMARY | 2024-09-09 01:43 | XMS_ITS | Encounter Summary ---
Author Organization [facility] Address [address] [place] [address] Care Team Providers Care Auto Air Conditioning Apprentice Name Role Phone Caitlyn Bowie MD Primary Care Provider +1- [phone] Encounter Details Date Type Department Care Team (Late st Contact Info) Description 02/01/2018 Scanned Document [facility] Health Information Management [address] [place] [address] External, Provider Social History Tobacco Use Types [...] Description 09/30/2024 8:30 PM EDT Procedure visit [facility] [address] [place] [address] [address] [place] [address] 10/31/2024 1:00 PM EDT Telemedicine Cancer Center at [facility] 240 [facility] Building [address] [place], [place] [phone] Ronald Mills MD 240 [facility] A1 [place] [address] documented as of this encounter [...] as of this encounter Care Teams Auto Air Conditioning Apprentice Relationship Specialty Start Date End Date Caitlyn Bowie MD 3400 [facility] 1 [place] [address] PCP - General Internal Medicine 05/06/21 Henry Kelly MD Pulmonary Department 175 [facility], [address] [place] [address] Physician Pulmonary Disease 09/06/17 06/22/20 documented as of this encounter
--- OUTSIDE RECORDS SUMMARY | 2024-09-09 01:43 | XMS_ITS | Encounter Summary ---
Author Organization [facility] Address [address] [place] [address] Care Team Providers Care Postal Inspector Name Role Phone Sharon Vides Primary Care Provider Brennan Castro MD Primary Care Provider Unavailab Hayden Montes MD Unavailable [phone] Pallavi Flood NP Unavailable +1- [phone] Caitlyn Bowie MD Primary Care Provider Johnathon shaver Encounter Details Date Type Department Care Team Description 02/05/2019 [facility] Medical Records [address] [place] [address] Landen Aaron DO Social History Tobacco Use [...] on filedocumented in this encounter Care Teams Postal Inspector Relationship Specialty Start Date End Date Sharon Vides PCP - General Internal Medicine 08/02/18 05/26/20 Brennan Burnett MD PCP - General Internal Medicine 05/27/20 12/07/21 Caitlyn Bowie MD [address] [place] [address] PCP - General Internal Medicine 12/08/21 Hayden Shah MD [address] [place], [place] [phone] Specialist Cardiovascular Disease 09/01/20 Pallavi Flood NP [address] [place], [place] [phone] Cardiology 09/01/20 documented as of this encounter
--- OUTSIDE RECORDS SUMMARY | 2024-09-09 01:43 | XMS_ITS | Encounter Summary ---
Author Organization [facility] Address [address] [place] [address] Care Team Providers Care Utility Technician Name Role Phone Caitlyn Bowie MD Primary Care Provider +1- [phone] Encounter Details Date Type Department Care Team (Late st Contact Info) Description 01/26/2018 Scanned Document [facility] Health Information Management [address] [place] [address] External, Provider Social History Tobacco Use Types [...] Description 09/30/2024 8:30 PM EDT Procedure visit [facility] [address] [place] [address] [address] [place] [address] 10/31/2024 1:00 PM EDT Telemedicine Cancer [facility] at [facility] 240 [facility] Building [address] [place], [place] [phone] Ronald Mills MD 240 [facility] A1 [place] [address] documented as of this encounter [...] documented as of this encounter Care Teams Utility Technician Relationship Specialty Start Date End Date Caitlyn Bowie MD 3400 [facility] 1 [place] [address] PCP - General Internal Medicine 05/06/21 Henry Kelly MD Pulmonary Department 175 [facility], [address] [place] [address] Physician Pulmonary Disease 09/06/17 06/22/20 documented as of this encounter
--- OUTSIDE RECORDS SUMMARY | 2024-09-09 01:43 | XMS_ITS | Encounter Summary ---
Author Organization [facility] and [facility] Address [address] [place] [address] Care Team Providers Care Inside Sales Engineer Name Role Phone Caitlyn Bowie MD Primary Care Provider +1- [phone] Encounter Details Date Type Department Care Team (Late st Contact Info) Description 04/29/2021 Scanned Document INTERFACE DEFAULT [address] [place] [address] System, Provider Not In Social History Tobacco [...] Description 09/30/2024 8:30 PM EDT Procedure visit [facility] [address] [place] [address] [address] [place] [address] 10/31/2024 1:00 PM EDT Telemedicine [facility] at [facility] 240 [facility] [address] [place] [address] Ronald Mills MD 240 [facility] [address]1 [place] [address] documented as of this encounter Procedures Procedure [...] documented as of this encounter Care Teams Inside Sales Engineer Relationship Specialty Start Date End Date Caitlyn Bowie MD [address] [address] PCP - General Internal Medicine 05/06/21 documented as of this encounter
--- OUTSIDE RECORDS SUMMARY | 2024-09-09 01:43 | XMS_ITS | Encounter Summary ---
Author Organization [facility] Address [address] [place] [address] Care Team Providers Care Vocational Training Teacher Name Role Phone Caitlyn Bowie MD Primary Care Provider +1- [phone] Encounter Details Date Type Department Care Team (Late st Contact Info) Description 03/14/2018 Scanned Document [facility] Health Information Management [address] [place] [address] External, Provider Social History Tobacco Use Types [...] Description 09/30/2024 8:30 PM EDT Procedure visit [facility] [address] [place] [address] [address] [place] [address] 10/31/2024 1:00 PM EDT Telemedicine Cancer Center at [facility] 240 [facility] Building [address] [place], [place] [address] Ronald Mills MD 240 [facility] A1 [place] [address] documented as of this encounter [...] as of this encounter Care Teams Vocational Training Teacher Relationship Specialty Start Date End Date Caitlyn Bowie MD 3400 [facility] 1 [place] [address] PCP - General Internal Medicine 05/06/21 Henry Kelly MD Pulmonary Department 175 [facility], [address] [place] [address] Physician Pulmonary Disease 09/06/17 06/22/20 documented as of this encounter
--- OUTSIDE RECORDS SUMMARY | 2024-09-09 01:43 | XMS_ITS | Encounter Summary ---
Author Organization [facility] Address [address] [place] [address] Care Team Providers Care Property Developer Name Role Phone Caitlyn Bowie MD Primary Care Provider +1- [phone] Encounter Details Date Type Department Care Team (Late st Contact Info) Description 06/07/2021 Scanned Document Cancer Center at [address] [address] External, Provider Social History Tobacco Use Types [...] Description 09/30/2024 8:30 PM EDT Procedure visit [facility] [address] [place] [address] [place] [address] 10/31/2024 1:00 PM EDT Telemedicine Cancer Center at [address] [place], [place] [address] Ronald Mills MD [address] [address] documented as of this encounter Visit Diagnoses Not on filedocumented in this encounter Additional Health Concerns Infection Onset Date Last Indicated Resolved Time COVID-19 03/05/2022 03/05/2022 03/15/2022 7:18 PM EDT Assessment Noted Time PHQ-9 Depression Total Score: 2 11/07/19 19 2:06 PM EDT documented as of this encounter Care Teams Property Developer Relationship Specialty Start Date End Date Caitlyn Bowie MD [address] [address] PCP - General Internal Medicine 05/06/21 documented as of this encounter
--- OUTSIDE RECORDS SUMMARY | 2024-09-09 01:44 | XMS_ITS | Encounter Summary ---
Author Organization [facility] and [facility] Address [address] [place] [address] Care Team Providers Care Pododermatologist Name Role Phone Caitlyn Bowie MD Primary Care Provider +1- [phone] Reason for Visit * Reason Comments Advice Only mass Encounter Details Date Type Department Care Team (Late st Contact Info) Description 09/06/2021 Telephone [facility] at [address] [address] Ronald Mills MD [address] [place] [address] Advice Only (mass) Social History Tobacco [...] Description 09/30/2024 8:30 PM EDT Procedure visit [facility] [address] [place] [address] [address] [place] [address] 10/31/2024 1:00 PM EDT Telemedicine Cancer Center at [address] [place], [place] [address] Ronald Mills MD 240 [facility] A1 [place] [address] documented as of this encounter Visit Diagnoses Not on filedocumented in this encounter Additional Health Concerns Infection Onset Date Last Indicated Resolved Time COVID-19 03/05/2022 03/05/2022 03/15/2022 7:18 PM EDT Assessment Noted Time PHQ-9 Depression Total Score: 2 11/07/19 19 2:06 PM EDT documented as of this encounter Care Teams Pododermatologist Relationship Specialty Start Date End Date Caitlyn Bowie MD [address] [place] [address] [address] PCP - General Internal Medicine 05/06/21 documented as of this encounter
--- OUTSIDE RECORDS SUMMARY | 2024-09-09 01:44 | XMS_ITS ---
Author Organization [facility] Address 46 [facility] [address] [place] [address] Care Team Providers Care Hospice Entrance Attendant Name Role Phone EVELIN RAMSAY Primary Care Provider Yenny Hou Unavailable [phone] Allergies Allergen (clinical drug ingredient) Drug/Non Drug [...] bedtime, 1/2 tab prn during the day [facility] 06/10/2014 Active Advair HFA 230-21MCG/ACT 2 Inhalation tw ice daily for -3 06/10/2014 Active EpiPen Active Meclizine HCl 25 MG 1 tablet as needed Orally [facility] 06/10/2014 Active Rosuvastatin Calcium 05/03/2024 Active predniSONE 2.5 MG Oral for 30 Active Singulair 10 MG 1 tablet Orally Once a day Active Metoprolol Succinate ER 50 MG 1 tablet Orally Once a day Active Synthroid 25MCG 1 ORAL daily for - [facility] 06/10/2014 Active Albuterol Sulfate (2.5 MG/3ML)0.083% [...] Encounters Encounter Location Date Provider Diagnosis Total [address] [place] [address] 07/09/2024 Yenny Lovettva Urgency of urination R39.15 [...] Notes * TONIE WATSONOB:1945 (79 yo F)Acc No.[id number]:07/09/2024 PROGRESS NOTES Patient:?SHIRLEY CINDA Appointment Provider:?Yenny doan M.D. :1945???Age:79 Y???Sex:Female D ate:07/09/2024 Address:[address] [place] [address], [facility] Pcp:EVELIN RAMSAY Subjective: * Chief Complaints: * [...] ODORED DISCHARGE.?no?skin complaints.? * Medical History:? * Fulfillment Representative History:?/ Para?2/2.?Sexual activity?not currently sexually active.?Last Pap [...] mm Hg, Temp: 98.0 F. * Examination: ???WINE STEWARD/STEWARDESS exam: ?EXTERNAL GENITALIA:?Normal female. No lesions, erythema [...] Elizalde M.D. Date:?07/09/2024 Generated for Arely paige/Sebastian/Zacheryitting on:?09/09/2024 01:43 AM EST History and Physical Notes * [...] Category Sub-Category Detail Notes Category Not es WINE STEWARD/STEWARDESS exam CERVIX: surgically absent VAGINA: atrophic changes, er ythematous with yellow white discharge, pH>4.5, +whiff test EXTERNAL GENITALIA: Normal female. No le sions, erythema or discharge UTERUS: absent ADNEXA: surgically absent
--- OUTSIDE RECORDS SUMMARY | 2024-09-09 01:44 | XMS_ITS | Encounter Summary ---
Author Organization [facility] Address [address] [place] [address] Care Team Providers Care Sliver Lap Machine Tender Name Role Phone Caitlyn Bowie MD Primary Care Provider +1- [phone] Encounter Details Date Type Department Care Team (Late st Contact Info) Description 06/08/2022 Scanned Document INTERFACE DEFAULT [address] [place] [address] System, Provider Not In Social History Tobacco [...] Description 09/30/2024 8:30 PM EDT Procedure visit [facility] [address] [place] [address] [address] [place] [address] 10/31/2024 1:00 PM EDT Telemedicine [facility] Center at [facility] 240 [facility] [address] [place] [address] Ronald Mills MD 240 [facility] A1 [place] [address] documented as of this encounter Procedures Procedure [...] documented as of this encounter Care Teams Sliver Lap Machine Tender Relationship Specialty Start Date End Date Caitlyn Bowie MD [address] [address] PCP - General Internal Medicine 05/06/21 documented as of this encounter
--- OUTSIDE RECORDS SUMMARY | 2024-09-09 01:44 | XMS_ITS | Encounter Summary ---
Author Organization [facility] and [facility] Address [address] [place] [address] Care Team Providers Care Clerk Checker Name Role Phone Caitlyn Bowie MD Primary Care Provider +1- [phone] Encounter Details Date Type Department Care Team (Late st Contact Info) Description 08/23/2022 Abstract Cardiovascular Medicine at [address] [place] [address] Norma Renee MD [address] [place] [phone] Social History Tobacco Use Types Packs/Day Years [...] Description 09/30/2024 8:30 PM EDT Procedure visit [facility] [address] [place] [address] [address] [place] [address] 10/31/2024 1:00 PM EDT Telemedicine Cancer Center at [address] [facility] [place] [address] Ronlad Mills MD [address] [place] [address] documented as of this encounter Visit Diagnoses Not on filedocumented in this encounter Additional Health Concerns Assessment Noted Time PHQ-9 Depression Total Score: 2 11/07/19 19 2:06 PM EDT documented as of this encounter Care Teams Clerk Checker Relationship Specialty Start Date End Date Caitlyn Bowie MD 3400 [facility] 1 [place] [address] PCP - General Internal Medicine 05/06/21 documented as of this encounter
--- OUTSIDE RECORDS SUMMARY | 2024-09-09 01:44 | XMS_ITS | Encounter Summary ---
Author Organization [facility] and [facility] Address [address] [place] [address] Care Team Providers Care Substation Operator Helper Name Role Phone Caitlyn Bowie MD Primary Care Provider +1- [phone] Encounter Details Date Type Department Care Team (Late st Contact Info) Description 07/28/2022 Scanned Document [facility] Program at [address] [address] Norma Renee MD [address] [place] [address] 2 [place] [phone] Social History Tobacco Use Types Packs/Day Years [...] Description 09/30/2024 8:30 PM EDT Procedure visit [facility] [address] [place] [address] 10/31/2024 1:00 PM EDT Telemedicine Cancer Center at [address] [place] [address] [place] [address] Ronald Mills MD [address] [place] [address] documented as of this encounter Visit Diagnoses Not on filedocumented in this encounter Additional Health Concerns Assessment Noted Time PHQ-9 Depression Total Score: 2 11/07/19 19 2:06 PM EDT documented as of this encounter Care Teams Substation Operator Helper Relationship Specialty Start Date End Date Caitlyn Bowie MD [address] [address] PCP - General Internal Medicine 05/06/21 documented as of this encounter
--- OUTSIDE RECORDS SUMMARY | 2024-09-09 01:44 | XMS_ITS | Encounter Summary ---
Author Organization [facility] and [facility] Address [address] [place] [address] Care Team Providers Care Hr Director Name Role Phone Caitlyn Bowie MD Primary Care Provider +1- [phone] Encounter Details Date Type Department Care Team (Late st Contact Info) Description 04/19/2023 Scanned Document INTERFACE DEFAULT [address] [place] [address] System, Provider Not In Social History Tobacco [...] Description 09/30/2024 8:30 PM EDT Procedure visit [facility] [address] [place] [address] [address] [place] [address] 10/31/2024 1:00 PM EDT Telemedicine [facility] at [facility] 240 [facility] Building [address] [place] [address] Ronald Mills MD 240 [facility] A1 [place] [address] documented as of this encounter Procedures Procedure [...] documented as of this encounter Care Teams Hr Director Relationship Specialty Start Date End Date Caitlyn Bowie MD [address] [address] PCP - General Internal Medicine 05/06/21 documented as of this encounter
--- OUTSIDE RECORDS SUMMARY | 2024-09-09 01:44 | XMS_ITS | Encounter Summary ---
Author Organization [facility] Address [address] [place] [address] Care Team Providers Care Private Advisor Name Role Phone Caitlyn Bowie MD Primary Care Provider +1- [phone] Encounter Details Date Type Department Care Team (Late st Contact Info) Description 04/28/2021 Scanned Document INTERFACE DEFAULT [address] [place] [address] System, Provider Not In Social History Tobacco [...] Description 09/30/2024 8:30 PM EDT Procedure visit [facility] [address] [place] [address] [address] [place] [address] 10/31/2024 1:00 PM EDT Telemedicine [facility] at [facility] 240 [facility] Building [address] [place] [address] Ronald Mills MD 240 [facility] A1 [place] [address] documented as of this encounter Procedures Procedure [...] as of this encounter Care Teams Private Advisor Relationship Specialty Start Date End Date Caitlyn Bowie MD [facility] [address] [address] PCP - General Internal Medicine 05/06/21 documented as of this encounter
--- OUTSIDE RECORDS SUMMARY | 2024-09-09 01:44 | XMS_ITS | Encounter Summary ---
Author Organization [facility] and [facility] Address [address] [place] [address] Care Team Providers Care Film Printer Name Role Phone Caitlyn Bowie MD Primary Care Provider +1- [phone] Encounter Details Date Type Department Care Team (Late st Contact Info) Description 07/07/2021 Scanned Document INTERFACE DEFAULT [address] [place] [address] System, Provider Not In Social History Tobacco [...] Description 09/30/2024 8:30 PM EDT Procedure visit [facility] [address] [place] [address] [address] [place] [address] 10/31/2024 1:00 PM EDT Telemedicine [facility] at [facility] 240 [facility] Building [address] [place] [address] Ronald Mills MD 240 [facility] A1 [place] [address] documented as of this encounter Visit Diagnoses Not on filedocumented in this encounter Additional Health Concerns Infection Onset Date Last Indicated Resolved Time COVID-19 03/05/2022 03/05/2022 03/15/2022 7:18 PM EDT Assessment Noted Time PHQ-9 Depression Total Score: 2 11/07/19 19 2:06 PM EDT documented as of this encounter Care Teams Film Printer Relationship Specialty Start Date End Date Caitlyn Bowie MD [address] [address] PCP - General Internal Medicine 05/06/21 documented as of this encounter
--- OUTSIDE RECORDS SUMMARY | 2024-09-09 01:44 | XMS_ITS | Encounter Summary ---
Author Organization [facility] Address [address] [place] [address] [address] [place] [address] Phone Care Team Providers Care Ice Cream Dispenser Name Role Phone Caitlyn Bowie MD Primary Care Provider +1- [phone] Encounter Details Date Type Department Care Team (Late st Contact Info) Description 08/30/2024 Abstract [facility] [address] [place] [address] [address] [place] [address] Adalgisa Whitney MD [address] [place] [address] [address] [place] [address] Social History Tobacco Use Types [...] 09/30/2024 8:30 PM EDT Procedure visit [facility] [address] [place] [address] 10/31/2024 1:00 PM EDT Telemedicine Cancer Center at [address] [place] [address] Ronald Mills MD [address] [place] [address] documented as of this encounter Visit Diagnoses Not on filedocumented in this encounter Additional Health Concerns Assessment Noted Time PHQ-9 Depression Total Score: 2 11/07/19 19 2:06 PM EDT documented as of this encounter Care Teams Ice Cream Dispenser Relationship Specialty Start Date End Date Caitlyn Bowie MD [address] [phone] PCP - General Internal Medicine 05/06/21 documented as of this encounter
--- OUTSIDE RECORDS SUMMARY | 2024-09-09 01:44 | XMS_ITS | Encounter Summary ---
Author Organization [facility] and [facility] Address [address] [place] [address] Care Team Providers Care Field Horticultural Specialty Grower Name Role Phone Caitlyn Bowie MD Primary Care Provider +1- [phone] Encounter Details Date Type Department Care Team (Late st Contact Info) Description 12/04/2018 Scanned Document [facility] Health Information Management [address] [place] [address] External, Provider Social History Tobacco Use Types [...] Description 09/30/2024 8:30 PM EDT Procedure visit [facility] [address] [place] [address] [address] [place] [address] 10/31/2024 1:00 PM EDT Telemedicine [facility] at [facility] 240 [facility] Building [address] [place], [place] [address] Ronald Mills MD 240 [facility] A1 [place] [address] documented as of this encounter Visit Diagnoses Not on filedocumented in this encounter Additional Health Concerns Infection Onset Date Last Indicated Resolved Time COVID-19 03/05/2022 03/05/2022 03/15/2022 7:18 PM EDT Assessment Noted Time PHQ-9 Depression Total Score: 2 11/07/19 19 2:06 PM EDT documented as of this encounter Care Teams Field Horticultural Specialty Grower Relationship Specialty Start Date End Date Caitlyn Bowie MD 3400 [facility] 1 [place] [address] PCP - General Internal Medicine 05/06/21 Henry Kelly MD Pulmonary Department 175 [facility], [address] [place] [address] Physician Pulmonary Disease 09/06/17 06/22/20 documented as of this encounter
--- OUTSIDE RECORDS SUMMARY | 2024-09-09 01:44 | XMS_ITS ---
Author Organization [facility] Address [address] [place] [address] Care Team Providers Care Salicylic Acid Blender Name Role Phone EVELIN RAMSAY Primary Care Provider Yenny Hou Unavailable [phone] Allergies Allergen (clinical drug ingredient) Drug/Non Drug [...] bedtime, 1/2 tab prn during the day [facility] 06/10/2014 Active traZODone HCl 50MG 1 ORAL at bedtime fo r -3 [facility] 06/10/2014 Active Meclizine HCl 25 MG 1 tablet as needed Orally [facility] 06/10/2014 Active Advair HFA 230-21MCG/ACT 2 [...] Synthroid 25MCG 1 ORAL daily for -3 [facility] 06/10/2014 Active Singulair 10 MG 1 [...] 25 Encounters Encounter Location Date Provider Diagnosis [address] [place] [address] 07/18/2024 Yenny Elizalde Encounter for screening mammogram [...] Notes * TONIE WATSONOB:1945 (79 yo F)Acc No.[id number]:07/18/2024 PROGRESS NOTES Patient:?CINDA WATSON Appointment Provider:?Yenny doan M.D. :1945???Age:79 Y???Sex:Female D ate:07/18/2024 Address:[address] [place] [address] Pcp:EVELIN RAMSAY Subjective: * Chief Complaints: * ???LT BREAST PAIN * HPI: ???New/Follow-up Patient Consult:? PAT C/O LEFT BREAST DISCOMFORT OF A FEW DAYS DURATION.? NO NIPPLE DISCHARGE, NO PALPABLE MASSES.? HER LAST MAMMOGRAM DONE IN AUG 2023 WAS NORMAL. * ROS:?general:?no?chest pain.?no?palpitations.?no?headache.?no?cough.?no?shortness of breath.?no?fever.?no?unexplained weight loss.?no?nausea/vomiting.?no?change in bowel movements.?no blood in stool.?no?genitourinary complaints.?no?skin complaints.? * Medical History:? * Property Officer History:?/ Para?2/2.?Sexual activity?not currently sexually active.?Last Pap [...] Elizalde M.D. Date:?07/18/2024 Generated for Arely paige/Sebastian/Brandonsmitting on:?09/09/2024 01:43 AM EST History and Physical [...] General Examination GENERAL APPEARANCE: in no ac apache distress, well developed, well nourished BREASTS: normal, no dimpling, no discharge, no drainage, no masses palpable bilaterally, nontender
--- OUTSIDE RECORDS SUMMARY | 2024-09-09 01:44 | XMS_ITS | Encounter Summary ---
Author Organization [facility] and [facility] Address [address] [place] [address] Care Team Providers Care Cognos Consultant Name Role Phone Caitlyn Bowie MD Primary Care Provider +1- [phone] Encounter Details Date Type Department Care Team (Late st Contact Info) Description 04/24/2021 Scanned Document INTERFACE DEFAULT [address] [place] [address] System, Provider Not In Social History Tobacco [...] Description 09/30/2024 8:30 PM EDT Procedure visit [facility] [address] [place] [address] [address] [place] [address] 10/31/2024 1:00 PM EDT Telemedicine [facility] at [facility] [address] [facility] [address] [place] [address] Ronald Mills MD 240 [facility] [address] [place] [address] documented as of this encounter Procedures Procedure [...] documented as of this encounter Care Teams Cognos Consultant Relationship Specialty Start Date End Date Caitlyn Bowie MD [address] [address] PCP - General Internal Medicine 05/06/21 documented as of this encounter
--- OUTSIDE RECORDS SUMMARY | 2024-09-09 01:44 | XMS_ITS | Encounter Summary ---
Author Organization [facility] and [facility] Address [address] [place] [address] Care Team Providers Care Sports Physical Therapist Name Role Phone Caitlyn Bowie MD Primary Care Provider +1- [phone] Encounter Details Date Type Department Care Team (Late st Contact Info) Description 09/24/2021 Scanned Document INTERFACE DEFAULT [address] [place] [address] System, Provider Not In Social History Tobacco [...] Description 09/30/2024 8:30 PM EDT Procedure visit [facility] [address] [place] [address] [address] [place] [address] 10/31/2024 1:00 PM EDT Telemedicine [facility] at [facility] 240 [facility] [address] [place] [address] Ronald Mills MD 240 [facility] [address] [place] [address] documented as of this encounter Procedures Procedure [...] as of this encounter Care Teams Sports Physical Therapist Relationship Specialty Start Date End Date Caitlyn Bowie MD [address] [address] PCP - General Internal Medicine 05/06/21 documented as of this encounter
--- OUTSIDE RECORDS SUMMARY | 2024-09-09 01:44 | XMS_ITS | Encounter Summary ---
Author Organization [facility] and [facility] Address [address] [place] [address] Care Team Providers Care Multiple Knife Edge Trimmer Operator Name Role Phone Caitlyn Bowie MD Primary Care Provider +1- [phone] Encounter Details Date Type Department Care Team (Late st Contact Info) Description 07/06/2021 Scanned Document INTERFACE DEFAULT [address] [place] [address] System, Provider Not In Social History Tobacco [...] Description 09/30/2024 8:30 PM EDT Procedure visit [facility] [address] [place] [address] [address] [place] [address] 10/31/2024 1:00 PM EDT Telemedicine Cancer Center at [facility] 240 [facility] Building [address] [place] [address] Ronald Mills MD 240 [facility] [address] [place] [address] documented as of this encounter Visit Diagnoses Not on filedocumented in this encounter Additional Health Concerns Infection Onset Date Last Indicated Resolved Time COVID-19 03/05/2022 03/05/2022 03/15/2022 7:18 PM EDT Assessment Noted Time PHQ-9 Depression Total Score: 2 11/07/19 19 2:06 PM EDT documented as of this encounter Care Teams Multiple Knife Edge Trimmer Operator Relationship Specialty Start Date End Date Caitlyn Bowie MD [address] [address] PCP - General Internal Medicine 05/06/21 documented as of this encounter
--- OUTSIDE RECORDS SUMMARY | 2024-09-09 01:44 | XMS_ITS | Encounter Summary ---
Author Organization [facility] Address [address] [place] [address] Care Team Providers Care Salesperson Books Name Role Phone Caitlyn Bowie MD Primary Care Provider +1- [phone] Encounter Details Date Type Department Care Team (Late st Contact Info) Description 04/20/2023 Scanned Document INTERFACE DEFAULT [address] [place] [address] System, Provider Not In Social History Tobacco [...] Description 09/30/2024 8:30 PM EDT Procedure visit [facility] [address] [place] [address] [address] [place] [address] 10/31/2024 1:00 PM EDT Telemedicine [facility] at [facility] 240 [facility] Building [address] [place] [address] Ronald Mills MD 240 [facility] [address] [place] [address] documented as of this encounter Procedures Procedure [...] documented as of this encounter Care Teams Salesperson Books Relationship Specialty Start Date End Date Caitlyn Bowie MD [address] [address] PCP - General Internal Medicine 05/06/21 documented as of this encounter
--- OUTSIDE RECORDS SUMMARY | 2024-09-09 01:44 | XMS_ITS | Encounter Summary ---
Author Organization [facility] and [facility] Address [address] [place] [address] Care Team Providers Care Medical Examiner Name Role Phone Caitlyn Bowie MD Primary Care Provider +1- [phone] Encounter Details Date Type Department Care Team (Late st Contact Info) Description 09/23/2021 Scanned Document INTERFACE DEFAULT [address] [place] [address] System, Provider Not In Social History Tobacco [...] Description 09/30/2024 8:30 PM EDT Procedure visit [facility] [address] [place] [address] [address] [place] [address] 10/31/2024 1:00 PM EDT Telemedicine Cancer Center at [facility] 240 [facility] [address] [place] [address] Ronald Mills MD 240 [facility] [address] [place] [address] documented as of this encounter Procedures Procedure [...] as of this encounter Care Teams Medical Examiner Relationship Specialty Start Date End Date Caitlyn Bowie MD [address] [address] PCP - General Internal Medicine 05/06/21 documented as of this encounter
--- OUTSIDE RECORDS SUMMARY | 2024-09-09 01:44 | XMS_ITS | Encounter Summary ---
Author Organization [facility] and [facility] Address [address] [place] [address] Care Team Providers Care Picker Machine Operator Name Role Phone Caitlyn Bowie MD Primary Care Provider +1- [phone] Encounter Details Date Type Department Care Team (Late st Contact Info) Description 04/25/2021 Scanned Document INTERFACE DEFAULT [address] [place] [address] System, Provider Not In Social History Tobacco [...] Description 09/30/2024 8:30 PM EDT Procedure visit [facility] [address] [place] [address] [address] [place] [address] 10/31/2024 1:00 PM EDT Telemedicine [facility] [address] [facility] [address] [place] [address] Ronald Mills MD 240 [facility] [address] [place] [address] documented as of this encounter Procedures Procedure [...] documented as of this encounter Care Teams Picker Machine Operator Relationship Specialty Start Date End Date Caitlyn Bowie MD [facility] [address] [address] PCP - General Internal Medicine 05/06/21 documented as of this encounter
--- OUTSIDE RECORDS SUMMARY | 2024-09-09 01:44 | XMS_ITS | Encounter Summary ---
Author Organization [facility] and [facility] Address [address] [place] [address] Care Team Providers Care Oil Refinery Process Technician Name Role Phone Caitlyn Bowie MD Primary Care Provider +1- [phone] Encounter Details Date Type Department Care Team (Late st Contact Info) Description 09/28/2015 Scanned Document [facility] Health Information Management [address] [place] [address] External, Provider Social History Tobacco Use Types [...] Description 09/30/2024 8:30 PM EDT Procedure visit [facility] [address] [place] [address] [address] [place] [address] 10/31/2024 1:00 PM EDT Telemedicine [facility] at [facility] [address] [facility] Building [address] [place], [place] [address] Ronald Mills MD 240 [facility] A1 [place] [address] documented as of this encounter Procedures Procedure Name Priority Date/Time Associated Diagnosis Comments LAB SCAN Routine 09/09/2015 documented in this encounter Results * Lab Scan (09/09/2015) Blood specimen (specimen) us Provider External LAB BLOOD ORDERABLES Final Res ult Performing Organization Address City/State/[facility] Co de Phone Number [facility] documented in this encounter Visit Diagnoses Not on filedocumented in this encounter Additional Health Concerns Infection Onset Date Last Indicated Resolved Time COVID-19 03/05/2022 03/05/2022 03/15/2022 7:18 PM EDT documented as of this encounter Care Teams Oil Refinery Process Technician Relationship Specialty Start Date End Date Caitlyn Bowie MD 3400 [facility] [address] [place] [address] PCP - General Internal Medicine 05/06/21 Henry Kelly MD Pulmonary Department [address] [facility] [place] [address] Physician Pulmonary Disease 09/06/17 06/22/20 documented as of this encounter
--- OUTSIDE RECORDS SUMMARY | 2024-09-09 01:44 | XMS_ITS | Encounter Summary ---
Author Organization [facility] Address [address] [place] [address] Care Team Providers Care Campus Director Name Role Phone Caitlyn Bowie MD Primary Care Provider +1- [phone] Encounter Details Date Type Department Care Team (Late st Contact Info) Description 04/26/2021 Scanned Document INTERFACE DEFAULT [address] [place] [address] System, Provider Not In Social History Tobacco [...] Description 09/30/2024 8:30 PM EDT Procedure visit [facility] [address] [place] [address] [address] [place] [address] 10/31/2024 1:00 PM EDT Telemedicine [facility] 240 [facility] Building [address] [place] [address] Ronald Mills MD 240 [facility] [address] [place] [address] documented as of this encounter Procedures Procedure [...] documented as of this encounter Care Teams Campus Director Relationship Specialty Start Date End Date Caitlyn Bowie MD [facility] [address] [address] PCP - General Internal Medicine 05/06/21 documented as of this encounter
--- OUTSIDE RECORDS SUMMARY | 2024-09-09 01:44 | XMS_ITS | Encounter Summary ---
Author Organization [facility] and [facility] Address [address] [place] [address] Care Team Providers Care Vp Packaging Name Role Phone Caitlyn Bowie MD Primary Care Provider +1- [phone] Encounter Details Date Type Department Care Team (Late st Contact Info) Description 04/27/2021 Scanned Document INTERFACE DEFAULT [address] [place] [address] System, Provider Not In Social History Tobacco [...] Description 09/30/2024 8:30 PM EDT Procedure visit [facility] [address] [place] [address] [address] [place] [address] 10/31/2024 1:00 PM EDT Telemedicine Cancer [facility] at [facility] 240 [facility] Building [address] [place] [address] Ronald Mills MD 240 [facility] [address] [place] [address] documented as of this encounter Procedures Procedure [...] as of this encounter Care Teams Vp Packaging Relationship Specialty Start Date End Date Caitlyn Bowie MD [address] [address] PCP - General Internal Medicine 05/06/21 documented as of this encounter
--- OUTSIDE RECORDS SUMMARY | 2024-09-09 01:44 | XMS_ITS | Encounter Summary ---
Author Organization [facility] and [facility] Address [address] [place] [address] Care Team Providers Care Resort Desk Clerk Name Role Phone Caitlyn Bowie MD Primary Care Provider +1- [phone] Encounter Details Date Type Department Care Team (Late st Contact Info) Description 10/24/2022 Scanned Document INTERFACE DEFAULT [address] [place] [address] System, Provider Not In Social History Tobacco [...] Description 09/30/2024 8:30 PM EDT Procedure visit [facility] [address] [place] [address] [address] [place] [address] 10/31/2024 1:00 PM EDT Telemedicine [facility] 240 [facility] [address] [place] [address] Ronald Mills MD 240 [facility] [address] [place] [address] documented as of this encounter Procedures Procedure [...] documented as of this encounter Care Teams Resort Desk Clerk Relationship Specialty Start Date End Date Caitlyn Bowie MD [address] [address] PCP - General Internal Medicine 05/06/21 documented as of this encounter
--- OUTSIDE RECORDS SUMMARY | 2024-09-09 01:44 | XMS_ITS | Encounter Summary ---
Author Organization [facility] and [facility] Address [address] [place] [address] Care Team Providers Care Cupboard Builder Name Role Phone Caitlyn Bowie MD Primary Care Provider +1- [phone] Encounter Details Date Type Department Care Team (Late st Contact Info) Description 12/23/2022 Scanned Document INTERFACE DEFAULT [address] [place] [address] System, Provider Not In Social History Tobacco [...] Description 09/30/2024 8:30 PM EDT Procedure visit [facility] [address] [place] [address] [address] [place] [address] 10/31/2024 1:00 PM EDT Telemedicine Cancer Center at [facility] 240 [facility] Building [address] [place] [address] Ronald Mills MD [address] [facility] [address] [place] [address] documented as of this encounter Visit Diagnoses Not on filedocumented in this encounter Additional Health Concerns Assessment Noted Time PHQ-9 Depression Total Score: 2 11/07/19 19 2:06 PM EDT documented as of this encounter Care Teams Cupboard Builder Relationship Specialty Start Date End Date Caitlyn Bowie MD [address] [address] PCP - General Internal Medicine 05/06/21 documented as of this encounter
--- OUTSIDE RECORDS SUMMARY | 2024-09-09 01:44 | XMS_ITS | Encounter Summary ---
Author Organization [facility] Address [address] [place] [address] Care Team Providers Care Retort Forker Name Role Phone Caitlyn Bowie MD Primary Care Provider +1- [phone] Encounter Details Date Type Department Care Team (Late st Contact Info) Description 09/07/2021 Scanned Document INTERFACE DEFAULT [address] [place] [address] System, Provider Not In Social History Tobacco [...] Description 09/30/2024 8:30 PM EDT Procedure visit [facility] [address] [place] [address] [address] [place] [address] 10/31/2024 1:00 PM EDT Telemedicine Cancer [facility] at [facility] [address] [facility] [address] [place] [address] Ronald Mills MD 240 [facility] [address] [place] [address] documented as of this encounter Procedures Procedure [...] documented as of this encounter Care Teams Retort Forker Relationship Specialty Start Date End Date Caitlyn Bowie MD [facility] [address] [address] PCP - General Internal Medicine 05/06/21 documented as of this encounter
--- OUTSIDE RECORDS SUMMARY | 2024-09-09 01:44 | XMS_ITS | Encounter Summary ---
Author Organization [facility] and [facility] Address [address] [place] [address] Care Team Providers Care Telemetry Nurse Name Role Phone Caitlyn Bowie MD Primary Care Provider +1- [phone] Encounter Details Date Type Department Care Team (Late st Contact Info) Description 09/02/2021 Scanned Document INTERFACE DEFAULT [address] [place] [address] System, Provider Not In Social History Tobacco [...] Description 09/30/2024 8:30 PM EDT Procedure visit [facility] [address] [place] [address] [address] [place] [address] 10/31/2024 1:00 PM EDT Telemedicine [facility] at [facility] [address] [facility] [address] [place] [address] Ronald Mills MD 240 [facility] A[address] [place] [address] documented as of this encounter Procedures Procedure [...] documented as of this encounter Care Teams Telemetry Nurse Relationship Specialty Start Date End Date Caitlyn Bowie MD [facility] [address] [address] PCP - General Internal Medicine 05/06/21 documented as of this encounter
--- OUTSIDE RECORDS SUMMARY | 2024-09-09 01:44 | XMS_ITS | Encounter Summary ---
Author Organization [facility] and [facility] Address [address] [place] [address] Care Team Providers Care Director Public Service Name Role Phone Caitlyn Bowie MD Primary Care Provider +1- [phone] Encounter Details Date Type Department Care Team (Late st Contact Info) Description 09/01/2023 Scanned Document INTERFACE DEFAULT [address] [place] [address] System, Provider Not In Social History Tobacco [...] Description 09/30/2024 8:30 PM EDT Procedure visit [facility] [address] [place] [address] [address] [place] [address] 10/31/2024 1:00 PM EDT Telemedicine Cancer Center at [facility] 240 [facility] [address] [place] [address] Ronald Mills MD 240 [facility] [address] [place] [address] documented as of this encounter Visit Diagnoses Not on filedocumented in this encounter Additional Health Concerns Assessment Noted Time PHQ-9 Depression Total Score: 2 11/07/19 19 2:06 PM EDT documented as of this encounter Care Teams Director Public Service Relationship Specialty Start Date End Date Caitlyn Bowie MD [address] [address] PCP - General Internal Medicine 05/06/21 documented as of this encounter
--- OUTSIDE RECORDS SUMMARY | 2024-09-09 01:44 | XMS_ITS | Encounter Summary ---
Author Organization [facility] and [facility] Address [address] [place] [address] Care Team Providers Care Machine Setter Automatic Name Role Phone Caitlyn Bowie MD Primary Care Provider +1- [phone] Encounter Details Date Type Department Care Team (Late st Contact Info) Description 05/16/2023 Scanned Document INTERFACE DEFAULT [address] [place] [address] System, Provider Not In Social History Tobacco [...] Description 09/30/2024 8:30 PM EDT Procedure visit [facility] [address] [place] [address] [address] [place] [address] 10/31/2024 1:00 PM EDT Telemedicine Cancer Center at [facility] 240 [facility] Building [address] [place] [address] Ronald Mills MD 240 [facility] A1 [place] [address] documented as of this encounter Procedures Procedure [...] as of this encounter Care Teams Machine Setter Automatic Relationship Specialty Start Date End Date Caitlyn Bowie MD [address] [address] PCP - General Internal Medicine 05/06/21 documented as of this encounter
--- OUTSIDE RECORDS SUMMARY | 2024-09-09 01:44 | XMS_ITS | Encounter Summary ---
Author Organization [facility] and [facility] Address [address] [place] [address] Care Team Providers Care Grinding Room Supervisor Name Role Phone Caitlyn Bowie MD Primary Care Provider +1- [phone] Encounter Details Date Type Department Care Team (Late st Contact Info) Description 06/21/2022 Scanned Document INTERFACE DEFAULT [address] [place] [address] System, Provider Not In Social History Tobacco [...] Description 09/30/2024 8:30 PM EDT Procedure visit [facility] [address] [place] [address] [address] [place] [address] 10/31/2024 1:00 PM EDT Telemedicine Cancer Center at [facility] 240 [facility] Building [address] [place] [address] Ronald Mills MD 240 [facility] A1 [place] [address] documented as of this encounter Procedures Procedure [...] as of this encounter Care Teams Grinding Room Supervisor Relationship Specialty Start Date End Date Caitlyn Bowie MD [address] [address] PCP - General Internal Medicine 05/06/21 documented as of this encounter
--- OUTSIDE RECORDS SUMMARY | 2024-09-09 01:44 | XMS_ITS | Encounter Summary ---
Author Organization [facility] and [facility] Address [address] [place] [address] Care Team Providers Care Process Improvement Analyst Name Role Phone Caitlyn Bowie MD Primary Care Provider +1- [phone] Encounter Details Date Type Department Care Team (Late st Contact Info) Description 06/24/2022 Scanned Document INTERFACE DEFAULT [address] [place] [address] System, Provider Not In Social History Tobacco [...] Description 09/30/2024 8:30 PM EDT Procedure visit [facility] [address] [place] [address] [address] [place] [address] 10/31/2024 1:00 PM EDT Telemedicine [facility] 240 [facility] [address] [place] [address] Ronald Mills MD 240 [facility] A1 [place] [address] documented as of this encounter Procedures Procedure [...] as of this encounter Care Teams Process Improvement Analyst Relationship Specialty Start Date End Date Caitlyn Bowie MD [address] [address] PCP - General Internal Medicine 05/06/21 documented as of this encounter
--- OUTSIDE RECORDS SUMMARY | 2024-09-09 01:44 | XMS_ITS | Encounter Summary ---
Author Organization [facility] and [facility] Address [address] [place] [address] Care Team Providers Care Hydrate Thickener Operator Name Role Phone Caitlyn Bowie MD Primary Care Provider +1- [phone] Encounter Details Date Type Department Care Team (Late st Contact Info) Description 01/02/2024 Scanned Document INTERFACE DEFAULT [address] [place] [address] System, Provider Not In Social History Tobacco [...] Description 09/30/2024 8:30 PM EDT Procedure visit [facility] [address] [place] [address] [address] [place] [address] 10/31/2024 1:00 PM EDT Telemedicine [facility] 240 [facility] [address] [place] [address] Ronald Mills MD 240 [facility] A1 [place] [address] documented as of this encounter Procedures Procedure [...] documented as of this encounter Care Teams Hydrate Thickener Operator Relationship Specialty Start Date End Date Caitlyn Bowie MD [facility] [address] [address] PCP - General Internal Medicine 05/06/21 documented as of this encounter
--- OUTSIDE RECORDS SUMMARY | 2024-09-09 01:44 | XMS_ITS | Encounter Summary ---
Author Organization [facility] and [facility] Address 20 [place] [address] Care Team Providers Care Interlacer Name Role Phone Caitlyn Bowie MD Primary Care Provider +1- [phone] Encounter Details Date Type Department Care Team (Late st Contact Info) Description 09/10/2021 Scanned Document Cardiovascular Medicine at [address] [address] Norma Renee MD [address] [place] [phone] Social History Tobacco Use Types Packs/Day Years [...] Description 09/30/2024 8:30 PM EDT Procedure visit [facility] [address] [place] [address] [address] [place] [address] 10/31/2024 1:00 PM EDT Telemedicine Cancer Center at [address] [place], [place] [address] Ronald Mills MD 240 [facility] Max [address]1 [place] [address] documented as of this encounter Visit Diagnoses Not on filedocumented in this encounter Additional Health Concerns Infection Onset Date Last Indicated Resolved Time COVID-19 03/05/2022 03/05/2022 03/15/2022 7:18 PM EDT Assessment Noted Time PHQ-9 Depression Total Score: 2 11/07/19 19 2:06 PM EDT documented as of this encounter Care Teams Interlacer Relationship Specialty Start Date End Date Caitlyn Bowie MD [address] [address] PCP - General Internal Medicine 05/06/21 documented as of this encounter
--- OUTSIDE RECORDS SUMMARY | 2024-09-09 01:44 | XMS_ITS | Encounter Summary ---
Author Organization [facility] and [facility] Address [address] [place] [address] Care Team Providers Care Data Programmer Name Role Phone Caitlyn Bowie MD Primary Care Provider +1- [phone] Encounter Details Date Type Department Care Team (Late st Contact Info) Description 06/23/2022 Scanned Document INTERFACE DEFAULT [address] [place] [address] System, Provider Not In Social History Tobacco [...] Description 09/30/2024 8:30 PM EDT Procedure visit [facility] [address] [place] [address] [address] [place] [address] 10/31/2024 1:00 PM EDT Telemedicine [facility] 240 [facility] Building [address] [place] [address] Ronald Mills MD 240 [facility] A1 [place] [address] documented as of this encounter Visit Diagnoses Not on filedocumented in this encounter Additional Health Concerns Assessment Noted Time PHQ-9 Depression Total Score: 2 11/07/19 19 2:06 PM EDT documented as of this encounter Care Teams Data Programmer Relationship Specialty Start Date End Date Caitlyn Bowie MD [address] [address] PCP - General Internal Medicine 05/06/21 documented as of this encounter
--- OUTSIDE RECORDS SUMMARY | 2024-09-09 01:44 | XMS_ITS | Encounter Summary ---
Author Organization [facility] and [facility] Address [address] [place] [address] Care Team Providers Care Plant Anatomy Teacher Name Role Phone Caitlyn Bowie MD Primary Care Provider +1- [phone] Encounter Details Date Type Department Care Team (Late st Contact Info) Description 05/17/2023 Scanned Document INTERFACE DEFAULT [address] [place] [address] System, Provider Not In Social History Tobacco [...] Description 09/30/2024 8:30 PM EDT Procedure visit [facility] [address] [place] [address] [address] [place] [address] 10/31/2024 1:00 PM EDT Telemedicine [facility] 240 [facility] Building [address] [place] [address] Ronald Mills MD 240 [facility] A1 [place] [address] documented as of this encounter Procedures Procedure [...] as of this encounter Care Teams Plant Anatomy Teacher Relationship Specialty Start Date End Date Caitlyn Bowie MD [address] [address] PCP - General Internal Medicine 05/06/21 documented as of this encounter
--- OUTSIDE RECORDS SUMMARY | 2024-09-09 01:44 | XMS_ITS | Encounter Summary ---
Author Organization [facility] and [facility] Address [address] [place] [address] Care Team Providers Care Tin Dipper Name Role Phone Caitlyn Bowie MD Primary Care Provider +1- [phone] Encounter Details Date Type Department Care Team (Late st Contact Info) Description 06/27/2022 Scanned Document INTERFACE DEFAULT [address] [place] [address] System, Provider Not In Social History Tobacco [...] Description 09/30/2024 8:30 PM EDT Procedure visit [facility] [address] [place] [address] [address] [place] [address] 10/31/2024 1:00 PM EDT Telemedicine [facility] 240 [facility] Building [address] [place] [address] Ronald Mills MD 240 [facility] A1 [place] [address] documented as of this encounter Procedures Procedure [...] as of this encounter Care Teams Tin Dipper Relationship Specialty Start Date End Date Caitlyn Bowie MD [facility] [address] [address] PCP - General Internal Medicine 05/06/21 documented as of this encounter
--- OUTSIDE RECORDS SUMMARY | 2024-09-09 01:44 | XMS_ITS | Encounter Summary ---
Author Organization [facility] Address 20 [place] [address] Care Team Providers Care Drainage Inspector Name Role Phone Caitlyn Bowie MD Primary Care Provider +1- [phone] Encounter Details Date Type Department Care Team (Late st Contact Info) Description 09/24/2015 Scanned Document Digestive Diseases at 40 [facility] [address] [address] Kevni Espinoza MD [address] [place] [phone] Social History Tobacco Use Types Packs/Day [...] Description 09/30/2024 8:30 PM EDT Procedure visit [facility] [address] [place] [address] [address] [place] [address] 10/31/2024 1:00 PM EDT Telemedicine Cancer Center at [address] [place] [address] Ronald Mills MD [address] [place] [address] [address] [place] [address] documented as of this encounter Visit Diagnoses Not on filedocumented in this encounter Additional Health Concerns Infection Onset Date Last Indicated Resolved Time COVID-19 03/05/2022 03/05/2022 03/15/2022 7:18 PM EDT documented as of this encounter Care Teams Drainage Inspector Relationship Specialty Start Date End Date Caitlyn Bowie MD 3400 [facility] 1 [place] [address] PCP - General Internal Medicine 05/06/21 Henry Kelly MD Pulmonary Department 175 [facility] [address] [place] [address] Physician Pulmonary Disease 09/06/17 06/22/20 documented as of this encounter
--- OUTSIDE RECORDS SUMMARY | 2024-09-09 01:44 | XMS_ITS | Encounter Summary ---
Author Organization [facility] and [facility] Address [address] [place] [address] Care Team Providers Care Transportation Aide Name Role Phone Caitlyn Bowie MD Primary Care Provider +1- [phone] Encounter Details Date Type Department Care Team (Late st Contact Info) Description 06/20/2022 Scanned Document INTERFACE DEFAULT [address] [place] [address] System, Provider Not In Social History Tobacco [...] Description 09/30/2024 8:30 PM EDT Procedure visit [facility] [address] [place] [address] [address] [place] [address] 10/31/2024 1:00 PM EDT Telemedicine [facility] 240 [facility] [address] [place] [address] Ronald Mills MD 240 [facility] A1 [place] [address] documented as of this encounter Procedures Procedure [...] as of this encounter Care Teams Transportation Aide Relationship Specialty Start Date End Date Caitlyn Bowie MD [facility] [address] [address] PCP - General Internal Medicine 05/06/21 documented as of this encounter
--- OUTSIDE RECORDS SUMMARY | 2024-09-09 01:44 | XMS_ITS | Encounter Summary ---
Author Organization [facility] and [facility] Address [address] [place] [address] Care Team Providers Care Nuclear Spectroscopist Name Role Phone Caitlyn Bowie MD Primary Care Provider +1- [phone] Encounter Details Date Type Department Care Team (Late st Contact Info) Description 04/13/2023 Scanned Document INTERFACE DEFAULT [address] [place] [address] System, Provider Not In Social History Tobacco [...] Description 09/30/2024 8:30 PM EDT Procedure visit [facility] [address] [place] [address] [address] [place] [address] 10/31/2024 1:00 PM EDT Telemedicine [facility] 240 [facility] [address] [place] [address] Ronald Mills MD 240 [facility] A1 [place] [address] documented as of this encounter Procedures Procedure [...] as of this encounter Care Teams Nuclear Spectroscopist Relationship Specialty Start Date End Date Caitlyn Bowie MD [address] [address] PCP - General Internal Medicine 05/06/21 documented as of this encounter
--- OUTSIDE RECORDS SUMMARY | 2024-09-09 01:44 | XMS_ITS | Encounter Summary ---
Author Organization [facility] Address [address] [place] [address] Care Team Providers Care Hatchery Manager Name Role Phone Pcp, No Primary Care Provider Brennan Mario MD Primary Care Provider [phone] Caitlyn Bowie MD Primary Care Provider +1- [phone] Encounter Details Date Type Department Care Team (Late st Contact Info) Description 01/04/2022 Scanned Document [facility] Neurology Ophthalmology [address] [address] Yary Whitten DO [address] [place] [address] Social History Tobacco Use Types Packs/Day [...] on filedocumented in this encounter Care Teams Hatchery Manager Relationship Specialty Start Date End Date Pcp, No PCP - General General Medicine 10/04/21 07/18/22 Brennan Burnett MD [address] [place] [address] PCP - General 07/19/22 03/19/23 Caitlyn Bowie MD 3400 [place] [address] PCP - General Internal Medicine 03/20/23 documented as of this encounter
--- OUTSIDE RECORDS SUMMARY | 2024-09-09 01:44 | XMS_ITS | Encounter Summary ---
Author Organization [facility] and [facility] Address [address] [place] [address] Care Team Providers Care Punchboard Assembler Name Role Phone Caitlyn Bowie MD Primary Care Provider +1- [phone] Reason for Visit * Reason Comments Triage extream dry skin Encounter Details Date Type Department Care Team ([facility] st Contact Info) Description 05/12/2023 Telephone Medical Dermatology at [address] [address] Augustine Vargas MD [address] [place] [phone] Triage (extream dry skin) Social History [...] to her by Dr. Vargas at the [facility]. Requested that she send pictures [...] know if there's something the can prescribe. [phone] documented in this encounter Plan of Treatment Upcoming Encounters Date Type Department Care Team (Late st Contact Info) Description 09/30/2024 8:30 PM EDT Procedure visit [facility] [address] [place] [address] [address] [place] [address] 10/31/2024 1:00 PM EDT Telemedicine [facility] at [facility] 240 [facility] [address] [place] [address] Ronald Mills MD 240 [facility] [address] [place] [address] documented as of this encounter Visit Diagnoses Not on filedocumented in this encounter Additional Health Concerns Assessment Noted Time PHQ-9 Depression Total Score: 2 11/07/19 19 2:06 PM EDT documented as of this encounter Care Teams Punchboard Assembler Relationship Specialty Start Date End Date Caitlyn Bowie MD [address] [address] PCP - General Internal Medicine 05/06/21 documented as of this encounter
--- OUTSIDE RECORDS SUMMARY | 2024-09-09 01:44 | XMS_ITS | Encounter Summary ---
Author Organization [facility] and [facility] Address 20 [place] [address] Care Team Providers Care Ladle Operator Name Role Phone Caitlyn Bowie MD Primary Care Provider +1- [phone] Encounter Details Date Type Department Care Team (Late st Contact Info) Description 07/08/2022 Scanned Document Cardiovascular Medicine at [address] [address] Norma Renee MD [address] [place] [phone] Social History Tobacco Use Types Packs/Day Years [...] Description 09/30/2024 8:30 PM EDT Procedure visit [facility] [address] [place] [address] [address] [place] [address] 10/31/2024 1:00 PM EDT Telemedicine Cancer Center at [address] [place] [address] Ronald Mills MD 240 [facility] Max [address] [place] [address] documented as of this encounter Visit Diagnoses Not on filedocumented in this encounter Additional Health Concerns Assessment Noted Time PHQ-9 Depression Total Score: 2 11/07/19 19 2:06 PM EDT documented as of this encounter Care Teams Ladle Operator Relationship Specialty Start Date End Date Caitlyn Bowie MD 3400 [facility] 1 [place] [address] PCP - General Internal Medicine 05/06/21 documented as of this encounter
--- OUTSIDE RECORDS SUMMARY | 2024-09-09 01:44 | XMS_ITS | Encounter Summary ---
Author Organization [facility] and [facility] Address [address] [place] [address] Care Team Providers Care Vegetable Harvest Worker Name Role Phone Caitlyn Bowie MD Primary Care Provider +1- [phone] Encounter Details Date Type Department Care Team (Late st Contact Info) Description 09/09/2021 Scanned Document INTERFACE DEFAULT [address] [place] [address] System, Provider Not In Social History Tobacco [...] Description 09/30/2024 8:30 PM EDT Procedure visit [facility] [address] [place] [address] [address] [place] [address] 10/31/2024 1:00 PM EDT Telemedicine [facility] 240 [facility] [address] [place] [address] Ronald Mills MD 240 [facility] A1 [place] [address] documented as of this encounter Visit Diagnoses Not on filedocumented in this encounter Additional Health Concerns Infection Onset Date Last Indicated Resolved Time COVID-19 03/05/2022 03/05/2022 03/15/2022 7:18 PM EDT Assessment Noted Time PHQ-9 Depression Total Score: 2 11/07/19 19 2:06 PM EDT documented as of this encounter Care Teams Vegetable Harvest Worker Relationship Specialty Start Date End Date Caitlyn Bowie MD [address] [address] PCP - General Internal Medicine 05/06/21 documented as of this encounter
--- OUTSIDE RECORDS SUMMARY | 2024-09-09 01:44 | XMS_ITS | Encounter Summary ---
Author Organization [facility] and [facility] Address [address] [place] [address] Care Team Providers Care Tool Room Gear Machine Operator Name Role Phone Caitlyn Bowie MD Primary Care Provider +1- [phone] Encounter Details Date Type Department Care Team (Late st Contact Info) Description 06/28/2022 Scanned Document INTERFACE DEFAULT [address] [place] [address] System, Provider Not In Social History Tobacco [...] Description 09/30/2024 8:30 PM EDT Procedure visit [facility] [address] [place] [address] [address] [place] [address] 10/31/2024 1:00 PM EDT Tele[facility]icine [facility] 240 [facility] Building [address] [place] [address] Ronald Mills MD 240 [facility] A1 [place] [address] documented as of this encounter Procedures Procedure [...] as of this encounter Care Teams Tool Room Gear Machine Operator Relationship Specialty Start Date End Date Caitlyn Bowie MD [address] [address] PCP - General Internal Medicine 05/06/21 documented as of this encounter
--- OUTSIDE RECORDS SUMMARY | 2024-09-09 01:44 | XMS_ITS | Encounter Summary ---
Author Organization [facility] and [facility] Address [address] [place] [address] Care Team Providers Care Movement Assembler Name Role Phone Caitlyn Bowie MD Primary Care Provider +1- [phone] Encounter Details Date Type Department Care Team (Late st Contact Info) Description 07/22/2021 Scanned Document INTERFACE DEFAULT [address] [place] [address] System, Provider Not In Social History Tobacco [...] Description 09/30/2024 8:30 PM EDT Procedure visit [facility] [address] [place] [address] [address] [place] [address] 10/31/2024 1:00 PM EDT Telemedicine [facility] 240 [facility] [address] [place] [address] Ronald Mills MD 240 [facility] A1 [place] [address] documented as of this encounter Procedures Procedure [...] documented as of this encounter Care Teams Movement Assembler Relationship Specialty Start Date End Date Caitlyn Bowie MD [address] [address] PCP - General Internal Medicine 05/06/21 documented as of this encounter
--- OUTSIDE RECORDS SUMMARY | 2024-09-09 01:44 | XMS_ITS | Encounter Summary ---
Author Organization [facility] and [facility] Address 20 [place] [address] Care Team Providers Care Ham Doctor Name Role Phone Caitlyn Bowie MD Primary Care Provider +1- [phone] Encounter Details Date Type Department Care Team (Late Contact Info) Description 01/31/2023 Abstract [facility] Melanoma Surgery 35 [facility] [place] [address] Shilpi Romero, RN Social History Tobacco Use [...] Description 09/30/2024 8:30 PM EDT Procedure visit [facility] [address] [place] [address] [address] [place] [address] 10/31/2024 1:00 PM EDT Telemedicine Cancer Center at [address] [place] [address] Ronald Mills MD [address] [place] [address] [address] [place] [address] documented as of this encounter Visit Diagnoses Not on filedocumented in this encounter Additional Health Concerns Assessment Noted Time PHQ-9 Depression Total Score: 2 11/07/19 19 2:06 PM EDT documented as of this encounter Care Teams Ham Doctor Relationship Specialty Start Date End Date Caitlyn Bowie MD [address] [address] PCP - General Internal Medicine 05/06/21 documented as of this encounter
--- OUTSIDE RECORDS SUMMARY | 2024-09-09 01:45 | XMS_ITS | Encounter Summary ---
Author Organization [facility] and [facility] Address 20 [place] [address] Care Team Providers Care Mails Supervisor Name Role Phone Caitlyn Bowie MD Primary Care Provider +1- [phone] Encounter Details Date Type Department Care Team (Late st Contact Info) Description 05/10/2022 Scanned Document Cardiovascular Medicine at [address] [address] Norma Renee MD [address] [place] [phone] Social History Tobacco Use Types Packs/Day Years [...] Description 09/30/2024 8:30 PM EDT Procedure visit [facility] [address] [place] [address] [address] [place] [address] 10/31/2024 1:00 PM EDT Telemedicine Cancer Center at [address] [place] [address] Ronald Mills MD 240 [facility] Max [address] [place] [address] documented as of this encounter Visit Diagnoses Not on filedocumented in this encounter Additional Health Concerns Assessment Noted Time PHQ-9 Depression Total Score: 2 11/07/19 19 2:06 PM EDT documented as of this encounter Care Teams Mails Supervisor Relationship Specialty Start Date End Date Caitlyn Bowie MD 3400 [facility] 1 [place] [address] PCP - General Internal Medicine 05/06/21 documented as of this encounter
--- OUTSIDE RECORDS SUMMARY | 2024-09-09 01:45 | XMS_ITS | Encounter Summary ---
Author Organization [facility] and [facility] Address [address] [place] [address] Care Team Providers Care Principal Account Clerk Name Role Phone Caitlyn Bowie MD Primary Care Provider +1- [phone] Encounter Details Date Type Department Care Team (Late st Contact Info) Description 01/28/2019 Scanned Document Cardiovascular Medicine at [address] [place] [address] Cristian Arreguin MBBS [address] [place] [address] Social History Tobacco Use Types [...] Description 09/30/2024 8:30 PM EDT Procedure visit [facility] [address] [place] [address] [address] [place] [address] 10/31/2024 1:00 PM EDT Telemedicine Cancer Center at [address] [place], [place] [address] Ronald Mills MD 240 [facility] A1 [place] [address] documented as of this encounter Visit Diagnoses Not on filedocumented in this encounter Additional Health Concerns Infection Onset Date Last Indicated Resolved Time COVID-19 03/05/2022 03/05/2022 03/15/2022 7:18 PM EDT Assessment Noted Time PHQ-9 Depression Total Score: 2 11/07/19 19 2:06 PM EDT documented as of this encounter Care Teams Principal Account Clerk Relationship Specialty Start Date End Date Caitlyn Bowie MD 3400 [facility] 1 [place] [address] PCP - General Internal Medicine 05/06/21 Henry Kelly MD Pulmonary Department 175 [facility], [address] [place] [address] Physician Pulmonary Disease 09/06/17 06/22/20 documented as of this encounter
--- OUTSIDE RECORDS SUMMARY | 2024-09-09 01:45 | XMS_ITS | Encounter Summary ---
Author Organization [facility] and [facility] Address [address] [place] [address] Care Team Providers Care Part Time Receptionist Name Role Phone Caitlyn Bowie MD Primary Care Provider +1- [phone] Encounter Details Date Type Department Care Team (Late st Contact Info) Description 04/14/2022 Scanned Document INTERFACE DEFAULT [address] [place] [address] System, Provider Not In Social History Tobacco [...] Description 09/30/2024 8:30 PM EDT Procedure visit [facility] [address] [place] [address] [address] [place] [address] 10/31/2024 1:00 PM EDT Telemedicine Cancer Center at [facility] 240 [facility] [address] [place] [address] Ronald Mills MD 240 [facility] A1 [place] [address] documented as of this encounter Visit Diagnoses Not on filedocumented in this encounter Additional Health Concerns Assessment Noted Time PHQ-9 Depression Total Score: 2 11/07/19 19 2:06 PM EDT documented as of this encounter Care Teams Part Time Receptionist Relationship Specialty Start Date End Date Caitlyn Bowie MD [address] [address] PCP - General Internal Medicine 05/06/21 documented as of this encounter
--- OUTSIDE RECORDS SUMMARY | 2024-09-09 01:45 | XMS_ITS | Encounter Summary ---
Author Organization [facility] and [facility] Address [address] [place] [address] Care Team Providers Care Mgmt Consultant Name Role Phone Caitlyn Bowie MD Primary Care Provider +1- [phone] Encounter Details Date Type Department Care Team (Latest Contact Info) Description 12/25/2015 Transcribed Orders [facility] Station 35 [facility] [place] [address] Osmel Briscoe MD Other abnormality of red [...] EDT Procedure visit [facility] [address] [place] [address] [address] [place] [address] 10/31/2024 1:00 PM EDT Telemedicine Cancer Center at [address] [place], [place] [address] Ronald Mills MD [address] [place] [address] documented as of this encounter Results * Free kappa lambda with ratio, serum ( GH Q YH) (12/25/2015 10:09 AM EDT) Ig [place] Free Light Chain 1.84 0.33 - 1.94 mg/dL [facility] Ig Lambda Free Light Chain 1.96 0.57 - 2.63 mg/dL [facility] [place]/Lambda FLC Ratio 0.94 0.26 - 1.65 [facility] Blood specimen (specimen) 12/25/2015 10:09 AM EDT Osmel Briscoe MD LAB BLOOD ORDERABLES Final R [facility] Performing Organization Address [facility] Co de Phone Number [facility] [address] [place] [address] * Immunofixation, serum (GH L Q YH) (12/25/2015 10:09 AM EDT) Pathologist [facility] Immunofixation Electrophoresis Gel See below See Interp. [facility] Comment: INTERPRETATION: Normal immunofixation electrophoresis. No evidence of a serum monoclonal component. SIGNED BY:Keyur KAYE MD ON 12/29/2015 14:56:04 INTERPRETATION REVIEW : I have reviewed these results and agree with this interpretation. Blood specimen (specimen) 12/25/2015 10:09 AM EDT Osmel Briscoe MD LAB BLOOD ORDERABLES Final R esult Performing Organization Address City/[facility] Co de Phone Number [facility] [address] [place] [phone] * (ABNORMAL) Protein electrophoresis, serum ( GH L YH) (12/25/2015 10:09 AM EDT) Pathologist [facility] Albumin Electrophoresis 3.45(L) 3.50 - 4.70 g/dL [facility] Hfava-3-Zchhwpdc 0.16 0.10 - 0.30 g/dL [facility] Lpcfv-8-Mpeeleza 0.81 0.60 - 1.00 g/dL [facility] Beta Globulin 0.86 0.70 - 1.20 g/dL [facility] Gamma Globulin 0.92 0.70 - 1.50 g/dL [facility] SPEP Interpretation See below See Interp. [facility] Comment: INTERPRETATION: No discrete abnormal [...] ORDERABLES Final R esult Performing Organization Address [facility] Co de Phone Number [facility] [address] [place] [address] * Reticulocytes (GH L Q YH) (12/25/2015 10:09 AM EDT) [facility] Reticulocyte Count 2.1 0.6 - 2.7 % [facility] Blood specimen (specimen) 12/25/2015 10:09 AM EDT Osmel Briscoe MD LAB BLOOD ORDERABLES Final R esult Performing Organization Address [facility] Co de Phone Number [facility] [address] [place] [address] * (ABNORMAL) Sedimentation rate (ESR) (12/25/2015 10:09 AM EDT) [facility] Sed Rate 27(H) 0 - 20 mm/hr [facility] Blood specimen (specimen) 12/25/2015 10:09 AM EDT us Osmel Briscoe MD LAB BLOOD ORDERABLES Final R esult Performing Organization Address [facility] Co de Phone Number [facility] [address] [place] [address] * Ferritin (12/25/2015 10:09 AM EDT) Ferritin 68 9 - 120 ng/mL [facility] Blood specimen (specimen) 12/25/2015 10:09 AM EDT Osmel Briscoe MD LAB BLOOD ORDERABLES Final R esult Performing Organization Address [facility] de Phone Number [facility] [address] [place] [address] * Iron and TIBC (12/25/2015 10:09 AM EDT) Iron 110 50 - 170 ug/dL [facility] TIBC 290 250 - 450 ug/dL [facility] Iron Saturation 38 15 - 50 [facility] Blood specimen (specimen) 12/25/2015 10:09 AM EDT us Osmel Briscoe MD LAB BLOOD ORDERABLES Final R esult Performing Organization Address [facility] de Phone Number [facility] [address] [place] [phone] * Vitamin D 25 hydroxy (BH L YH) (12/25/2015 10:09 AM EDT) Vit D, 25-Hydroxy 43 20 - 50 ng/mL [facility] Comment: A serum 25(OH) vitamin [...] ORDERABLES Final R esult Performing Organization Address [facility] Co de Phone Number [facility] [address] [place] [address] * TSH ( L YH) (12/25/2015 10:09 AM EDT) TSH cancelled 0.3 - 4.2 uU/mL [facility] TSH 1.62 0.3 - 4.2 uU/mL [facility] Comment:This test is a third generation TSH assay. Blood specimen (specimen) 12/25/2015 10:09 AM EDT Osmel Briscoe MD LAB BLOOD ORDERABLES Final R esult Performing Organization Address [facility] Co de Phone Number [facility] [address] [place] [address] * (ABNORMAL) CBC and differential (12/25/2015 10:09 AM EDT) CBC with Differential See Below [facility] WBC 9.9 4.0 - 10.0 x 1000/uL [facility] RBC 4.0 3.8 - 5.2 M/uL [facility] Hemoglobin 13.4 12.0 - 16.0 g/dL [facility] Hematocrit 41.0 37.0 - 47.0 % [facility] MCV 101(H) 78 - 94 fL [facility] MCH 33.2(H) 27.0 - 33.0 pg [facility] MCHC 32.8(L) 33.0 - 37.0 g/dL [facility] RDW 12.5 10.8 - 14.5 % [facility] Platelets 265 150 - 350 x 1000/uL [facility] MPV 7.2 6.0 - 10.0 fL [facility] Neutrophils 82(H) 38 - 71 % [facility] Lymphocytes 7(L) 14 - 46 % [facility] Monocytes 10 2 - 15 % [facility] Eosinophils 1 0 - 5 % [facility] Basophils 0 0 - 2 % [facility] ANC (Abs Neutrophil Count) 8.1 1.0 - 9.0 x 1000/uL [facility] Absolute Lymphocyte Count 0.7 0.6 - 4.6 x 1000/uL [facility] Blood specimen (specimen) ARM NEC / Unknown 12/25/2015 10:09 AM EDT us Osmel Briscoe MD LAB BLOOD ORDERABLES Final R esult Performing Organization Address City/State/[facility] Co de Phone Number [facility] [address] [place] [address] documented in this encounter Visit Diagnoses Diagnosis [...] documented as of this encounter Care Teams Mgmt Consultant Relationship Specialty Start Date End Date Caitlyn Bowie MD [address] [facility] 1 [place] [address] PCP - General Internal Medicine 05/06/21 Henry Kelly MD Pulmonary Department 175 [facility], [address] [place] [address] Physician Pulmonary Disease 09/06/17 06/22/20 documented as of this encounter
--- OUTSIDE RECORDS SUMMARY | 2024-09-09 01:45 | XMS_ITS | Encounter Summary ---
Author Organization [facility] Address [address] [place] [address] Care Team Providers Care Die Maker Bench Stamping Name Role Phone Caitlyn Bowie MD Primary Care Provider +1- [phone] Encounter Details Date Type Department Care Team (Late st Contact Info) Description 01/26/2019 Scanned Document [facility] Health Information Management [address] [place] [address] External, Provider Social History Tobacco Use Types [...] Description 09/30/2024 8:30 PM EDT Procedure visit [facility] [address] [place] [address] [address] [place] [address] 10/31/2024 1:00 PM EDT Telemedicine Cancer Center at [facility] 240 [facility] [address] [place] [address] Ronald Mills MD 240 [facility] A1 [place] [address] documented as of this encounter Procedures Procedure [...] of this encounter Care Teams Die Maker Bench Stamping Relationship Specialty Start Date End Date Caitlyn Bowie MD [facility] 1 [place] [address] PCP - General Internal Medicine 05/06/21 Henry Kelly MD Pulmonary Department 175 [facility], [address] [place] [address] Physician Pulmonary Disease 09/06/17 06/22/20 documented as of this encounter
--- OUTSIDE RECORDS SUMMARY | 2024-09-09 01:45 | XMS_ITS | Encounter Summary ---
Author Organization [facility] Address [address] [place] [address] Care Team Providers Care Loom Checker Name Role Phone Caitlyn Bowie MD Primary Care Provider +1- [phone] Encounter Details Date Type Department Care Team (Late st Contact Info) Description 12/03/2015 Scanned Document [facility] Health Information Management [address] [place] [address] External, Provider Social History Tobacco Use Types [...] Description 09/30/2024 8:30 PM EDT Procedure visit [facility] [address] [place] [address] [address] [place] [address] 10/31/2024 1:00 PM EDT Telemedicine Cancer [facility] at [facility] 240 [facility] Building [address] [place], [place] [address] Ronald Mills MD 240 [facility] A1 [place] [address] documented as of this encounter Procedures Procedure Name Priority Date/Time Associated Diagnosis Comments LAB SCAN Routine 12/03/2015 documented in this encounter Results * Lab Scan (12/03/2015) Blood specimen (specimen) us Provider External LAB BLOOD ORDERABLES Edited Re sult - Final [facility] [place], [place], [facility] documented in this encounter Visit Diagnoses Not on filedocumented in this encounter Additional Health Concerns Infection Onset Date Last Indicated Resolved Time COVID-19 03/05/2022 03/05/2022 03/15/2022 7:18 PM EDT documented as of this encounter Care Teams Loom Checker Relationship Specialty Start Date End Date Caitlyn Bowie MD 3400 [facility] 1 [place] [address] PCP - General Internal Medicine 05/06/21 Henry Kelly MD Pulmonary Department 175 [facility], [address] [place] [address] Physician Pulmonary Disease 09/06/17 06/22/20 documented as of this encounter
--- OUTSIDE RECORDS SUMMARY | 2024-09-09 01:45 | XMS_ITS | Encounter Summary ---
Author Organization [facility] and [facility] Address [address] [place] [address] Care Team Providers Care Gambling Dealer Name Role Phone Caitlyn Bowie MD Primary Care Provider +1- [phone] Encounter Details Date Type Department Care Team (Late st Contact Info) Description 10/23/2018 Scanned Document [facility] Health Information Management [address] [place] [address] External, Provider Social History Tobacco Use Types [...] Description 09/30/2024 8:30 PM EDT Procedure visit [facility] [address] [place] [address] [address] [place] [address] 10/31/2024 1:00 PM EDT Telemedicine [facility] at [facility] 240 [facility] [address] [place], [place] [address] Ronald Mills MD 240 [facility] A1 [place] [address] documented as of this encounter Visit Diagnoses Not on filedocumented in this encounter Additional Health Concerns Infection Onset Date Last Indicated Resolved Time COVID-19 03/05/2022 03/05/2022 03/15/2022 7:18 PM EDT documented as of this encounter Care Teams Gambling Dealer Relationship Specialty Start Date End Date Caitlyn Bowie MD [address] [facility] 1 [place] [address] PCP - General Internal Medicine 05/06/21 Henry Kelly MD Pulmonary Department 175 [facility], [address] [place] [address] Physician Pulmonary Disease 09/06/17 06/22/20 documented as of this encounter
--- OUTSIDE RECORDS SUMMARY | 2024-09-09 01:45 | XMS_ITS | Encounter Summary ---
Author Organization [facility] Address [address] [place] [address] Care Team Providers Care Junior Sales Assistant Name Role Phone Caitlyn Bowie MD Primary Care Provider +1- [phone] Encounter Details Date Type Department Care Team (Late st Contact Info) Description 01/08/2022 Scanned Document INTERFACE DEFAULT [address] [place] [address] System, Provider Not In Social History Tobacco [...] Description 09/30/2024 8:30 PM EDT Procedure visit [facility] [address] [place] [address] [address] [place] [address] 10/31/2024 1:00 PM EDT Telemedicine Cancer Center at [facility] 240 [facility] [address] [place] [address] Ronald Mills MD 240 [facility] A1 [place] [address] documented as of this encounter Procedures Procedure [...] documented as of this encounter Care Teams Junior Sales Assistant Relationship Specialty Start Date End Date Caitlyn Bowie MD [facility] [address] [address] PCP - General Internal Medicine 05/06/21 documented as of this encounter
--- OUTSIDE RECORDS SUMMARY | 2024-09-09 01:45 | XMS_ITS | Encounter Summary ---
Author Organization [facility] and [facility] Address [address] [place] [address] Care Team Providers Care Pipe Cleaner Name Role Phone Caitlyn Bowie MD Primary Care Provider +1- [phone] Encounter Details Date Type Department Care Team (Late st Contact Info) Description 04/19/2022 Scanned Document INTERFACE DEFAULT [address] [place] [address] System, Provider Not In Social History Tobacco [...] EDT Procedure visit [facility] [address] [place] [address] [address] [place] [address] 10/31/2024 1:00 PM EDT Telemedicine Cancer Center at [facility] 240 [facility] [address] [place] [address] Ronald Mills MD 240 [facility] A1 [place] [address] documented as of this encounter Procedures Procedure [...] as of this encounter Care Teams Pipe Cleaner Relationship Specialty Start Date End Date Caitlyn Bowie MD [address] [address] PCP - General Internal Medicine 05/06/21 documented as of this encounter
--- OUTSIDE RECORDS SUMMARY | 2024-09-09 01:45 | XMS_ITS | Encounter Summary ---
Author Organization [facility] Address [address] [place] [address] Care Team Providers Care Flaker Tender Name Role Phone Caitlyn Bowie MD Primary Care Provider +1- [phone] Encounter Details Date Type Department Care Team (Late st Contact Info) Description 12/01/2015 Scanned Document [facility] Health Information Management [address] [place] [address] External, Provider Social History Tobacco Use Types [...] 09/30/2024 8:30 PM EDT Procedure visit [facility] [address] [place] [address] [address] [place] [address] 10/31/2024 1:00 PM EDT Telemedicine Cancer Center at [facility] 240 [facility] Building [address] [place], [place] [address] Ronald Mills MD [address] [facility] A1 [place] [address] documented as of this encounter Procedures Procedure Name Priority Date/Time Associated Diagnosis Comments CT RESULT SCAN Routine 12/01/2015 documented in this encounter Results * CT Result Scan (12/01/2015) us Provider External IMG SCAN REPORTS Edited Result - Final [facility] [place], [place], [facility] documented in this encounter Visit Diagnoses Not on filedocumented in this encounter Additional Health Concerns Infection Onset Date Last Indicated Resolved Time COVID-19 03/05/2022 03/05/2022 03/15/2022 7:18 PM EDT documented as of this encounter Care Teams Flaker Tender Relationship Specialty Start Date End Date Caitlyn Bowie MD 34[address] [facility] 1 [place] [address] PCP - General Internal Medicine 05/06/21 Henry Kelly MD Pulmonary Department 175 [facility], [address] [place] [address] Physician Pulmonary Disease 09/06/17 06/22/20 documented as of this encounter
--- OUTSIDE RECORDS SUMMARY | 2024-09-09 01:45 | XMS_ITS | Encounter Summary ---
Author Organization [facility] Address [address] [place] [address] Care Team Providers Care Cognos Consultant Name Role Phone Caitlyn Bowie MD Primary Care Provider +1- [phone] Encounter Details Date Type Department Care Team (Late st Contact Info) Description 04/13/2022 Scanned Document INTERFACE DEFAULT [address] [place] [address] System, Provider Not In Social History Tobacco [...] Description 09/30/2024 8:30 PM EDT Procedure visit [facility] [address] [place] [address] [address] [place] [address] 10/31/2024 1:00 PM EDT Telemedicine Cancer Center at [facility] 240 [facility] [address] [place] [address] Ronald Mills MD 240 [facility] A1 [place] [address] documented as of this encounter Procedures Procedure [...] Start Date End Date Caitlyn Bowie MD [facility] [address] [address] PCP - General Internal Medicine 05/06/21 documented as of this encounter
--- OUTSIDE RECORDS SUMMARY | 2024-09-09 01:45 | XMS_ITS | Encounter Summary ---
Author Organization [facility] Address [address] [place] [address] Care Team Providers Care Ip Paralegal Name Role Phone Caitlyn Bowie MD Primary Care Provider +1- [phone] Encounter Details Date Type Department Care Team (Late st Contact Info) Description 03/12/2019 Scanned Document [facility] Health Information Management [address] [place] [address] External, Provider Social History Tobacco Use Types [...] Description 09/30/2024 8:30 PM EDT Procedure visit [facility] [address] [place] [address] [address] [place] [address] 10/31/2024 1:00 PM EDT Telemedicine [facility] at [facility] 240 [facility] [address] [place] [address] Ronald Mills MD 240 [facility] A1 [place] [address] documented as of this encounter Procedures Procedure [...] as of this encounter Care Teams Ip Paralegal Relationship Specialty Start Date End Date Caitlyn Bowie MD 3400 [facility] Max 1 [place] [address] PCP - General Internal Medicine 05/06/21 Henry Kelly MD Pulmonary Department 175 [facility], [address] [place] [address] Physician Pulmonary Disease 09/06/17 06/22/20 documented as of this encounter
--- OUTSIDE RECORDS SUMMARY | 2024-09-09 01:45 | XMS_ITS | Encounter Summary ---
Author Organization [facility] Address [address] [place] [address] Care Team Providers Care Clinic Receptionist Name Role Phone Caitlyn Bowie MD Primary Care Provider +1- [phone] Encounter Details Date Type Department Care Team (Late st Contact Info) Description 01/30/2019 Scanned Document [facility] Health Information Management [address] [place] [phone] External, Provider Social History Tobacco Use Types [...] Description 09/30/2024 8:30 PM EDT Procedure visit [facility] [address] [place] [address] [address] [place] [address] 10/31/2024 1:00 PM EDT Telemedicine Cancer Center at [facility] 240 [facility] [place] [address] [place] [address] Ronald Mills MD 240 [facility] A1 [place] [address] documented as of this encounter Procedures Procedure [...] documented as of this encounter Care Teams Clinic Receptionist Relationship Specialty Start Date End Date Caitlyn Bowie MD 3400 [facility] 1 [place] [address] PCP - General Internal Medicine 05/06/21 Henry Kelly MD Pulmonary Department 175 [facility], [address] [place] [address] Physician Pulmonary Disease 09/06/17 06/22/20 documented as of this encounter
--- OUTSIDE RECORDS SUMMARY | 2024-09-09 01:45 | XMS_ITS | Encounter Summary ---
Author Organization [facility] Address [address] [place] [address] Care Team Providers Care Regional Economic Liaison Name Role Phone Caitlyn Bowie MD Primary Care Provider +1- [phone] Encounter Details Date Type Department Care Team (Late st Contact Info) Description 04/16/2022 Scanned Document INTERFACE DEFAULT [address] [place] [address] System, Provider Not In Social History Tobacco [...] 09/30/2024 8:30 PM EDT Procedure visit [facility] [address] [place] [address] [address] [place] [address] 10/31/2024 1:00 PM EDT Telemedicine [facility] at [facility] 240 [facility] [address] [place] [address] Ronald Mills MD 240 [facility] [address]1 [place] [address] documented as of this encounter Procedures Procedure [...] as of this encounter Care Teams Regional Economic Liaison Relationship Specialty Start Date End Date Caitlyn Bowie MD [address] [address] PCP - General Internal Medicine 05/06/21 documented as of this encounter
--- OUTSIDE RECORDS SUMMARY | 2024-09-09 01:45 | XMS_ITS | Encounter Summary ---
Author Organization [facility] and [facility] Address [address] [place] [address] Care Team Providers Care Fixed Income Analyst Name Role Phone Caitlyn Bowie MD Primary Care Provider +1- [phone] Encounter Details Date Type Department Care Team (Late st Contact Info) Description 11/04/2015 Scanned Document [facility] Health Information Management [address] [place] [address] External, Provider Social History Tobacco Use Types [...] Description 09/30/2024 8:30 PM EDT Procedure visit [facility] [address] [place] [address] [address] [place] [address] 10/31/2024 1:00 PM EDT Telemedicine [facility] 240 [facility] [address] [place], [place] [address] Ronald Mills MD 240 [facility] A1 [place] [address] documented as of this encounter Procedures Procedure Name Priority Date/Time Associated Diagnosis Comments NUC MED/PET RESULT SCAN Routine 11/04/2015 documented in this encounter Results * Nuc Med/PET Result Scan (11/04/2015) us Provider External IMG SCAN REPORTS Edited Result - Final [facility] documented in this encounter Visit Diagnoses Not on filedocumented in this encounter Additional Health Concerns Infection Onset Date Last Indicated Resolved Time COVID-19 03/05/2022 03/05/2022 03/15/2022 7:18 PM EDT documented as of this encounter Care Teams Fixed Income Analyst Relationship Specialty Start Date End Date Caitlyn Bowie MD 3400 [facility] 1 [place] [address] PCP - General Internal Medicine 05/06/21 Henry Kelly MD Pulmonary Department 175 [facility], [address] [place] [address] Physician Pulmonary Disease 09/06/17 06/22/20 documented as of this encounter
--- OUTSIDE RECORDS SUMMARY | 2024-09-09 01:45 | XMS_ITS | Encounter Summary ---
Author Organization [facility] and [facility] Address [address] [place] [address] Care Team Providers Care Violin Teacher Name Role Phone Caitlyn Bowie MD Primary Care Provider +1- [phone] Encounter Details Date Type Department Care Team (Late st Contact Info) Description 08/28/2015 Scanned Document [facility] Health Information Management [address] [place] [address] External, Provider Social History Tobacco Use Types [...] Description 09/30/2024 8:30 PM EDT Procedure visit [facility] [address] [place] [address] [address] [place] [address] 10/31/2024 1:00 PM EDT [facility]medicine [facility] 240 [facility] Building [address] [place], [place] [address] Ronald Mills MD 240 [facility] A1 [place] [address] documented as of this encounter Visit Diagnoses Not on filedocumented in this encounter Additional Health Concerns Infection Onset Date Last Indicated Resolved Time COVID-19 03/05/2022 03/05/2022 03/15/2022 7:18 PM EDT documented as of this encounter Care Teams Violin Teacher Relationship Specialty Start Date End Date Caitlyn Bowie MD 3400 [facility] [address] 1 [place] [address] PCP - General Internal Medicine 05/06/21 Henry Kelly MD Pulmonary Department 175 [facility], [address] [place] [address] Physician Pulmonary Disease 09/06/17 06/22/20 documented as of this encounter
--- OUTSIDE RECORDS SUMMARY | 2024-09-09 01:45 | XMS_ITS | Encounter Summary ---
Author Organization [facility] and [facility] Address [address] [place] [address] Care Team Providers Care Gear Shaper Set Up Operator Name Role Phone Caitlyn Bowie MD Primary Care Provider +1- [phone] Encounter Details Date Type Department Care Team (Late st Contact Info) Description 04/12/2022 Scanned Document INTERFACE DEFAULT [address] [place] [address] System, Provider Not In Social History Tobacco [...] Description 09/30/2024 8:30 PM EDT Procedure visit [facility] [address] [place] [address] [address] [place] [address] 10/31/2024 1:00 PM EDT Telemedicine [facility] 240 [facility] [address] [place] [address] Ronald Mills MD 240 [facility] [address]1 [place] [address] documented as of this encounter Procedures Procedure [...] End Date Caitlyn Bowie MD [address] [address] PCP - General Internal Medicine 05/06/21 documented as of this encounter
--- OUTSIDE RECORDS SUMMARY | 2024-09-09 01:45 | XMS_ITS | Encounter Summary ---
Author Organization [facility] Address [address] [place] [address] Care Team Providers Care Open Shank Coverer Name Role Phone Caitlyn Bowie MD Primary Care Provider +1- [phone] Encounter Details Date Type Department Care Team (Late st Contact Info) Description 01/08/2019 Scanned Document [facility] Health Information Management [address] [place] [address] External, Provider Social History Tobacco Use Types [...] Description 09/30/2024 8:30 PM EDT Procedure visit [facility] [address] [place] [address] [address] [place] [address] 10/31/2024 1:00 PM EDT [facility]icine [facility] 240 [facility] [address] [place] [address] Ronald Mills MD 240 [facility] [address]1 [place] [address] documented as of this encounter Procedures Procedure [...] documented as of this encounter Care Teams Open Shank Coverer Relationship Specialty Start Date End Date Caitlyn Bowei MD 3400 [facility] [address] 1 [place] [address] PCP - General Internal Medicine 05/06/21 Henry Kelly MD Pulmonary Department 175 [facility], [address] [place] [address] Physician Pulmonary Disease 09/06/17 06/22/20 documented as of this encounter
--- OUTSIDE RECORDS SUMMARY | 2024-09-09 01:45 | XMS_ITS | Encounter Summary ---
Author Organization [facility] and [facility] Address [address] [place] [address] Care Team Providers Care Project Specialist Name Role Phone Caitlyn Bowie MD Primary Care Provider +1- [phone] Encounter Details Date Type Department Care Team (Late st Contact Info) Description 12/31/2015 Scanned Document [facility] [address] [place] [address] External, Provider Social History Tobacco Use Types [...] 09/30/2024 8:30 PM EDT Procedure visit [facility] [address] [place] [address] [address] [place] [address] 10/31/2024 1:00 PM EDT Telemedicine [facility] 240 [facility] Building [address] [place], [place] [address] Ronald Mills MD 240 [facility] A1 [place] [address] documented as of this encounter Procedures Procedure Name Priority Date/Time Associated Diagnosis Comments LAB SCAN Routine 12/31/2015 documented in this encounter Results * Lab Scan (12/31/2015) Blood specimen (specimen) us Provider External LAB BLOOD ORDERABLES Final Res ult Performing Organization Address City/State/[facility] Co de Phone Number [facility] documented in this encounter Visit Diagnoses Not on filedocumented in this encounter Additional Health Concerns Infection Onset Date Last Indicated Resolved Time COVID-19 03/05/2022 03/05/2022 03/15/2022 7:18 PM EDT documented as of this encounter Care Teams Project Specialist Relationship Specialty Start Date End Date Caitlyn Bowie MD 3400 [facility] 1 [place] [address] PCP - General Internal Medicine 05/06/21 Henry Kelly MD Pulmonary Department 175 [facility], [address] [place] [address] Physician Pulmonary Disease 09/06/17 06/22/20 documented as of this encounter
--- OUTSIDE RECORDS SUMMARY | 2024-09-09 01:45 | XMS_ITS | Encounter Summary ---
Author Organization [facility] and [facility] Address [address] [place] [address] Care Team Providers Care Meat Counter Worker Name Role Phone Caitlyn Bowie MD Primary Care Provider +1- [phone] Encounter Details Date Type Department Care Team (Late st Contact Info) Description 04/22/2022 Scanned Document INTERFACE DEFAULT [address] [place] [address] System, Provider Not In Social History Tobacco [...] Description 09/30/2024 8:30 PM EDT Procedure visit [facility] [address] [place] [address] [address] [place] [address] 10/31/2024 1:00 PM EDT Telemedicine [facility] at [facility] 240 [facility] [address] [place] [address] Ronald Mills MD 240 [facility] [address]1 [place] [address] documented as of this encounter Procedures Procedure [...] documented as of this encounter Care Teams Meat Counter Worker Relationship Specialty Start Date End Date Caitlyn Bowie MD [address] [address] PCP - General Internal Medicine 05/06/21 documented as of this encounter
--- OUTSIDE RECORDS SUMMARY | 2024-09-09 01:45 | XMS_ITS | Encounter Summary ---
Author Organization [facility] and [facility] Address 20 [place] [address] Care Team Providers Care Guest Services Representative Name Role Phone Caitlyn Bowie MD Primary Care Provider +1- [phone] Encounter Details Date Type Department Care Team (Late st Contact Info) Description 09/09/2015 Scanned Document [facility] Health Information Management [address] [place] [address] External, Provider Social History Tobacco Use Types [...] Description 09/30/2024 8:30 PM EDT Procedure visit [facility] [address] [place] [address] [address] [place] [address] 10/31/2024 1:00 PM EDT Telemedicine Cancer [facility] at [facility] 240 [facility] Building [address] [place], [place] [address] Ronald Mills MD 240 [facility] A1 [place] [address] documented as of this encounter Procedures Procedure Name Priority Date/Time Associated Diagnosis Comments LAB SCAN Routine 09/09/2015 documented in this encounter Results * Lab Scan (09/09/2015) Blood specimen (specimen) us Provider External LAB BLOOD ORDERABLES Final Res ult Performing Organization Address City/State/[facility] Co de Phone Number [facility] documented in this encounter Visit Diagnoses Not on filedocumented in this encounter Additional Health Concerns Infection Onset Date Last Indicated Resolved Time COVID-19 03/05/2022 03/05/2022 03/15/2022 7:18 PM EDT documented as of this encounter Care Teams Guest Services Representative Relationship Specialty Start Date End Date Caitlyn Bowie MD 3400 [facility] Max 1 [place] [address] PCP - General Internal Medicine 05/06/21 Henry Kelly MD Pulmonary Department 175 [facility], [address] [place] [address] Physician Pulmonary Disease 09/06/17 06/22/20 documented as of this encounter
--- OUTSIDE RECORDS SUMMARY | 2024-09-09 01:45 | XMS_ITS | Encounter Summary ---
Author Organization [facility] and [facility] Address [address] [place] [address] Care Team Providers Care Automotive Leasing Sales Representative Name Role Phone Caitlyn Bowie MD Primary Care Provider +1- [phone] Encounter Details Date Type Department Care Team (Late st Contact Info) Description 01/13/2019 Scanned Document [facility] Health Information Management [address] [place] [address] External, Provider Social History Tobacco Use Types [...] Description 09/30/2024 8:30 PM EDT Procedure visit [facility] [address] [place] [address] [address] [place] [address] 10/31/2024 1:00 PM EDT Telemedicine [facility] at [facility] 240 [facility] [address] [place] [address] Ronald Mills MD 240 [facility] A1 [place] [address] documented as of this encounter Procedures Procedure [...] as of this encounter Care Teams Automotive Leasing Sales Representative Relationship Specialty Start Date End Date Caitlyn Bowie MD 3400 [facility] 1 [place] [address] PCP - General Internal Medicine 05/06/21 Henry Kelly MD Pulmonary Department 175 [facility], [address] [place] [address] Physician Pulmonary Disease 09/06/17 06/22/20 documented as of this encounter
--- OUTSIDE RECORDS SUMMARY | 2024-09-09 01:45 | XMS_ITS | Encounter Summary ---
Author Organization [facility] Address [address] [place] [address] Care Team Providers Care Dried Fruit Washer Name Role Phone Caitlyn Bowie MD Primary Care Provider +1- [phone] Encounter Details Date Type Department Care Team (Late st Contact Info) Description 04/28/2022 Scanned Document INTERFACE DEFAULT [address] [place] [address] System, Provider Not In Social History Tobacco [...] Description 09/30/2024 8:30 PM EDT Procedure visit [facility] [address] [place] [address] [address] [place] [address] 10/31/2024 1:00 PM EDT Telemedicine [facility] at [facility] 240 [facility] [address] [place] [address] Ronald Mills MD 240 [facility] A1 [place] [address] documented as of this encounter Procedures Procedure [...] documented as of this encounter Care Teams Dried Fruit Washer Relationship Specialty Start Date End Date Caitlyn Bowie MD [facility] [address] [address] PCP - General Internal Medicine 05/06/21 documented as of this encounter
--- OUTSIDE RECORDS SUMMARY | 2024-09-09 01:45 | XMS_ITS | Encounter Summary ---
Author Organization [facility] Address 20 [place] [address] Care Team Providers Care Relief Driller Name Role Phone Caitlyn Bowie MD Primary Care Provider +1- [phone] Encounter Details Date Type Department Care Team (Late st Contact Info) Description 12/16/2015 Scanned Document COUNTS INCLUDE 234 [facility] Health Information Management [address] [place] [address] External, Provider Social History Tobacco Use Types [...] Description 09/30/2024 8:30 PM EDT Procedure visit [facility] [address] [place] [address] [address] [place] [address] 10/31/2024 1:00 PM EDT Telemedicine [facility] 240 [facility] Building [address] [place], [place] [address] Ronald Mills MD 240 [facility] A1 [place] [address] documented as of this encounter Procedures Procedure Name Priority Date/Time Associated Diagnosis Comments US RESULT SCAN Routine 12/16/2015 documented in this encounter Results * US Result Scan (12/16/2015) us Provider External IMG SCAN REPORTS Edited Result - Final [facility] documented in this encounter Visit Diagnoses Not on filedocumented in this encounter Additional Health Concerns Infection Onset Date Last Indicated Resolved Time COVID-19 03/05/2022 03/05/2022 03/15/2022 7:18 PM EDT documented as of this encounter Care Teams Relief Driller Relationship Specialty Start Date End Date Caitlyn Bowie MD 3400 [facility] 1 [place] [address] PCP - General Internal Medicine 05/06/21 Henry Kelly MD Pulmonary Department 175 [facility], [address] [place] [address] Physician Pulmonary Disease 09/06/17 06/22/20 documented as of this encounter
--- OUTSIDE RECORDS SUMMARY | 2024-09-09 01:45 | XMS_ITS | Encounter Summary ---
Author Organization [facility] and [facility] Address [address] [place] [address] Care Team Providers Care Wall Mirror Department Supervisor Name Role Phone Caitlyn Bowie MD Primary Care Provider +1- [phone] Encounter Details Date Type Department Care Team (Late st Contact Info) Description 01/09/2019 Scanned Document [facility] Health Information Management [address] [place] [address] External, Provider Social History Tobacco Use Types [...] Description 09/30/2024 8:30 PM EDT Procedure visit [facility] [address] [place] [address] [address] [place] [address] 10/31/2024 1:00 PM EDT Telemedicine [facility] 240 [facility] [address] [place] [address] Ronald Mills MD 240 [facility] A1 [place] [address] documented as of this encounter Procedures Procedure [...] documented as of this encounter Care Teams Wall Mirror Department Supervisor Relationship Specialty Start Date End Date Caitlyn Bowie MD 3400 [facility] Max 1 [place] [address] PCP - General Internal Medicine 05/06/21 Henry Kelly MD Pulmonary Department [address] [place] [address], [address] [place] [address] Physician Pulmonary Disease 09/06/17 06/22/20 documented as of this encounter
--- OUTSIDE RECORDS SUMMARY | 2024-09-09 01:45 | XMS_ITS | Encounter Summary ---
Author Organization [facility] Address [address] [place] [address] Care Team Providers Care Drafter Electronic Name Role Phone Caitlyn Bowie MD Primary Care Provider +1- [phone] Encounter Details Date Type Department Care Team (Late st Contact Info) Description 04/25/2022 Scanned Document INTERFACE DEFAULT [address] [place] [address] System, Provider Not In Social History Tobacco [...] Procedure visit [facility] [address] [place] [address] [address] [place] [address] 10/31/2024 1:00 PM EDT Telemedicine [facility] 240 [facility] [address] [place] [address] Ronald Mills MD 240 [facility] A1 [place] [address] documented as of this encounter Visit Diagnoses Not on filedocumented in this encounter Additional Health Concerns Assessment Noted Time PHQ-9 Depression Total Score: 2 11/07/19 19 2:06 PM EDT documented as of this encounter Care Teams Drafter Electronic Relationship Specialty Start Date End Date Caitlyn Bowie MD [address] [address] PCP - General Internal Medicine 05/06/21 documented as of this encounter
--- OUTSIDE RECORDS SUMMARY | 2024-09-09 01:45 | XMS_ITS | Encounter Summary ---
Author Organization [facility] Address [address] [place] [address] Care Team Providers Care Oil Furnace Installer Name Role Phone Caitlyn Bowie MD Primary Care Provider +1- [phone] Encounter Details Date Type Department Care Team (Late st Contact Info) Description 11/03/2015 Scanned Document [facility] Health Information Management [address] [place] [address] External, Provider Social History Tobacco Use Types [...] 09/30/2024 8:30 PM EDT Procedure visit [facility] [address] [place] [address] [address] [place] [address] 10/31/2024 1:00 PM EDT Telemedicine [facility] 240 [facility] Building [address] [place], [place] [address] Ronald Mills MD 240 [facility] A1 [place] [address] documented as of this encounter Procedures Procedure Name Priority Date/Time Associated Diagnosis Comments US RESULT SCAN Routine 11/03/2015 documented in this encounter Results * US Result Scan (11/03/2015) us Provider External IMG SCAN REPORTS Edited Result - Final [facility] documented in this encounter Visit Diagnoses Not on filedocumented in this encounter Additional Health Concerns Infection Onset Date Last Indicated Resolved Time COVID-19 03/05/2022 03/05/2022 03/15/2022 7:18 PM EDT documented as of this encounter Care Teams Oil Furnace Installer Relationship Specialty Start Date End Date Caitlyn Bowie MD 3400 [facility] 1 [address] PCP - General Internal Medicine 05/06/21 Henry Kelly MD Pulmonary Department 175 [facility], [address] [address] Physician Pulmonary Disease 09/06/17 06/22/20 documented as of this encounter
--- OUTSIDE RECORDS SUMMARY | 2024-09-09 01:45 | XMS_ITS | Encounter Summary ---
Author Organization [facility] Address [address] [place] [address] Care Team Providers Care Observer Electrical Prospecting Name Role Phone Caitlyn Bowie MD Primary Care Provider +1- [phone] Encounter Details Date Type Department Care Team (Late st Contact Info) Description 01/17/2019 Scanned Document [facility] Health Information Management [address] [place] [address] External, Provider Social History Tobacco Use Types [...] Description 09/30/2024 8:30 PM EDT Procedure visit [facility] [address] [place] [address] [address] [place] [address] 10/31/2024 1:00 PM EDT Telemedicine [facility] 240 [facility] [address] [place] [address] Ronald Mills MD 240 [facility] [address]1 [place] [address] documented as of this encounter Procedures Procedure [...] documented as of this encounter Care Teams Observer Electrical Prospecting Relationship Specialty Start Date End Date Caitlyn Bowie MD 3400 [facility] 1 [place] [address] PCP - General Internal Medicine 05/06/21 Henry Kelly MD Pulmonary Department 175 [facility], [address] [place] [address] Physician Pulmonary Disease 09/06/17 06/22/20 documented as of this encounter
--- OUTSIDE RECORDS SUMMARY | 2024-09-09 01:45 | XMS_ITS | Encounter Summary ---
Author Organization [facility] Address [address] [place] [address] Care Team Providers Care Copier And Printer Field Technician Name Role Phone Caitlyn Bowie MD Primary Care Provider +1- [phone] Encounter Details Date Type Department Care Team (Late st Contact Info) Description 03/20/2023 Scanned Document [facility] Radiology [address] [place] [address] Caitlyn Bowie MD [address] [place] [address] Social History Tobacco Use Types Packs/Day Years [...] on filedocumented in this encounter Care Teams Copier And Printer Field Technician Relationship Specialty Start Date End Date Caitlyn Bowie MD [address] [place] [address] PCP - General Internal Medicine 03/20/23 documented as of this encounter
--- OUTSIDE RECORDS SUMMARY | 2024-09-09 01:45 | XMS_ITS | Encounter Summary ---
Author Organization [facility] and [facility] Address [address] [place] [address] Care Team Providers Care Cable Cutter And Swager Name Role Phone Caitlyn Bowie MD Primary Care Provider +1- [phone] Encounter Details Date Type Department Care Team (Late st Contact Info) Description 01/02/2019 Scanned Document [facility] Health Information Management [address] [place] [address] External, Provider Social History Tobacco Use Types [...] Description 09/30/2024 8:30 PM EDT Procedure visit [facility] [address] [place] [address] [address] [place] [address] 10/31/2024 1:00 PM EDT [facility] 240 [facility] [address] [place] [address] Ronald Mills MD 240 [facility] [address]1 [place] [address] documented as of this encounter Procedures Procedure [...] documented as of this encounter Care Teams Cable Cutter And Swager Relationship Specialty Start Date End Date Caitlyn Bowie MD 3400 [facility] 1 [place] [address] PCP - General Internal Medicine 05/06/21 Henry Kelly MD Pulmonary Department 175 [facility], [address] [place] [address] Physician Pulmonary Disease 09/06/17 06/22/20 documented as of this encounter
--- OUTSIDE RECORDS SUMMARY | 2024-09-09 01:45 | XMS_ITS | Encounter Summary ---
Author Organization [facility] Address [address] [place] [address] Care Team Providers Care Group Fitness Department Head Name Role Phone Pcp, No Primary Care Provider Brennan Mario MD Primary Care Provider [phone] Caitlyn Bowie MD Primary Care Provider [phone]- [phone] Encounter Details Date Type Department Care Team (Late st Contact Info) Description 01/04/2022 Scanned Document [facility] Neurology Ophthalmology [address] [address] Yary Whitten DO [address] [place] [address] Social History Tobacco Use Types Packs/Day [...] on filedocumented in this encounter Care Teams Group Fitness Department Head Relationship Specialty Start Date End Date Pcp, No PCP - General General Medicine 10/04/21 07/18/22 Brennan Burnett MD [address] [place] [address] PCP - General 07/19/22 03/19/23 Caitlyn Bowie MD [address] [place] [address] PCP - General Internal Medicine 03/20/23 documented as of this encounter
--- OUTSIDE RECORDS SUMMARY | 2024-09-09 01:45 | XMS_ITS | Encounter Summary ---
Author Organization [facility] Address [address] [place] [address] Care Team Providers Care Hot Strip Finisher Name Role Phone Caitlyn Bowie MD Primary Care Provider +1- [phone] Encounter Details Date Type Department Care Team (Late st Contact Info) Description 04/18/2022 Scanned Document INTERFACE DEFAULT [address] [place] [address] System, Provider Not In Social History Tobacco [...] Description 09/30/2024 8:30 PM EDT Procedure visit [facility] [address] [place] [address] [address] [place] [address] 10/31/2024 1:00 PM EDT Tele[facility]icine [facility] 240 [facility] Building [address] [place] [address] Ronald Mills MD 240 [facility] [address] [place] [address] documented as of this encounter Visit Diagnoses Not on filedocumented in this encounter Additional Health Concerns Assessment Noted Time PHQ-9 Depression Total Score: 2 11/07/19 19 2:06 PM EDT documented as of this encounter Care Teams Hot Strip Finisher Relationship Specialty Start Date End Date Caitlyn Bowie MD [address] [address] PCP - General Internal Medicine 05/06/21 documented as of this encounter
--- OUTSIDE RECORDS SUMMARY | 2024-09-09 01:45 | XMS_ITS | Encounter Summary ---
Author Organization [facility] Address [address] [place] [address] Care Team Providers Care Cloud Engagement Partner Name Role Phone Caitlyn Bowie MD Primary Care Provider +1- [phone] Encounter Details Date Type Department Care Team (Late st Contact Info) Description 01/28/2019 Scanned Document [facility] Health Information Management [address] [place] [address] External, Provider Social History Tobacco Use Types [...] Description 09/30/2024 8:30 PM EDT Procedure visit [facility] [address] [place] [address] [address] [place] [address] 10/31/2024 1:00 PM EDT Telemedicine [facility] at [facility] 240 [facility] [address] [place] [address] Ronald Mills MD [address] [facility] [address] [place] [address] documented as of this encounter Visit Diagnoses Not on filedocumented in this encounter Additional Health Concerns Infection Onset Date Last Indicated Resolved Time COVID-19 03/05/2022 03/05/2022 03/15/2022 7:18 PM EDT Assessment Noted Time PHQ-9 Depression Total Score: 2 11/07/19 19 2:06 PM EDT documented as of this encounter Care Teams Cloud Engagement Partner Relationship Specialty Start Date End Date Caitlyn Bowie MD 3400 [facility] 1 [place] [address] PCP - General Internal Medicine 05/06/21 Henry Kelly MD Pulmonary Department [address] [place] [address], [address] [place] [address] Physician Pulmonary Disease 09/06/17 06/22/20 documented as of this encounter
--- OUTSIDE RECORDS SUMMARY | 2024-09-09 01:45 | XMS_ITS | Encounter Summary ---
Author Organization [facility] and [facility] Address [address] [place] [address] Care Team Providers Care Tetryl Boiling Tub Operator Name Role Phone Caitlyn Bowie MD Primary Care Provider +1- [phone] Encounter Details Date Type Department Care Team (Late st Contact Info) Description 03/02/2022 Scanned Document [facility] Health Information Management [address] [place] [address] External, Provider Social History Tobacco Use Types [...] Description 09/30/2024 8:30 PM EDT Procedure visit [facility] [address] [place] [address] [address] [place] [address] 10/31/2024 1:00 PM EDT Telemedicine [facility] at [facility] 240 [facility] [address] [place] [address] Ronald Mills MD 240 [facility] [address]1 [place] [address] documented as of this encounter Visit Diagnoses Not on filedocumented in this encounter Additional Health Concerns Infection Onset Date Last Indicated Resolved Time COVID-19 03/05/2022 03/05/2022 03/15/2022 7:18 PM EDT Assessment Noted Time PHQ-9 Depression Total Score: 2 11/07/19 19 2:06 PM EDT documented as of this encounter Care Teams Tetryl Boiling Tub Operator Relationship Specialty Start Date End Date Caitlyn Bowie MD [address] [address] PCP - General Internal Medicine 05/06/21 documented as of this encounter
--- OUTSIDE RECORDS SUMMARY | 2024-09-09 01:45 | XMS_ITS | Encounter Summary ---
Author Organization [facility] Address [address] [place] [address] Care Team Providers Care Tree Scout Name Role Phone Caitlyn Bowie MD Primary Care Provider +1- [phone] Encounter Details Date Type Department Care Team (Late st Contact Info) Description 04/22/2019 Scanned Document [facility] Health Information Management [address] [place] [address] External, Provider Social History Tobacco Use Types [...] EDT Procedure visit [facility] [address] [place] [address] [address] [place] [address] 10/31/2024 1:00 PM EDT Telemedicine [facility] at [facility] 240 [facility] [address] [place] [address] Ronald Mills MD 240 [facility] [address]1 [place] [address] documented as of this encounter Visit Diagnoses Not on filedocumented in this encounter Additional Health Concerns Infection Onset Date Last Indicated Resolved Time COVID-19 03/05/2022 03/05/2022 03/15/2022 7:18 PM EDT Assessment Noted Time PHQ-9 Depression Total Score: 2 11/07/19 19 2:06 PM EDT documented as of this encounter Care Teams Tree Scout Relationship Specialty Start Date End Date Caitlyn Bowie MD 3400 [facility] 1 [place] [address] PCP - General Internal Medicine 05/06/21 Henry Kelly MD Pulmonary Department [address] [place] [address], [address] [place] [address] Physician Pulmonary Disease 09/06/17 06/22/20 documented as of this encounter
--- OUTSIDE RECORDS SUMMARY | 2024-09-09 01:45 | XMS_ITS | Encounter Summary ---
Author Organization [facility] Address [address] [place] [address] Care Team Providers Care Rn Ambulatory Name Role Phone Caitlyn Bowie MD Primary Care Provider +1- [phone] Encounter Details Date Type Department Care Team (Late st Contact Info) Description 04/12/2022 Scanned Document [facility] Health Information Management [address] [place] [address] External, Provider Social History Tobacco Use Types [...] Description 09/30/2024 8:30 PM EDT Procedure visit [facility] [address] [place] [address] [address] [place] [address] 10/31/2024 1:00 PM EDT Telemedicine Cancer Center at [facility] 240 [facility] [address] [place] [address] Ronald Mills MD 240 [facility] A1 [place] [address] documented as of this encounter [...] as of this encounter Care Teams Rn Ambulatory Relationship Specialty Start Date End Date Caitlyn Bowie MD [address] [place] [phone] PCP - General Internal Medicine 05/06/21 documented as of this encounter
--- OUTSIDE RECORDS SUMMARY | 2024-09-09 01:45 | XMS_ITS | Encounter Summary ---
Author Organization [facility] Address [address] [place] [address] Care Team Providers Care Supply Chain Tech Name Role Phone Caitlyn Bowie MD Primary Care Provider +1- [phone] Encounter Details Date Type Department Care Team (Late st Contact Info) Description 09/09/2015 Scanned Document [facility] Health Information Management [address] [place] [address] External, Provider Social History Tobacco Use Types [...] Description 09/30/2024 8:30 PM EDT Procedure visit [facility] [address] [place] [address] [address] [place] [address] 10/31/2024 1:00 PM EDT Telemedicine [facility] Center at [facility] 240 [facility] Building [address] [place], [place] [address] Ronald Mills MD 240 [facility] A1 [place] [address] documented as of this encounter Procedures Procedure Name Priority Date/Time Associated Diagnosis Comments LAB SCAN Routine 09/09/2015 documented in this encounter Results * Lab Scan (09/09/2015) Blood specimen (specimen) us Provider External LAB BLOOD ORDERABLES Final Res ult Performing Organization Address City/State/[facility] Co de Phone Number [facility] LAB [facility] documented in this encounter Visit Diagnoses Not on filedocumented in this encounter Additional Health Concerns Infection Onset Date Last Indicated Resolved Time COVID-19 03/05/2022 03/05/2022 03/15/2022 7:18 PM EDT documented as of this encounter Care Teams Supply Chain Tech Relationship Specialty Start Date End Date Caitlyn Bowie MD 3400 [facility] 1 [place] [address] PCP - General Internal Medicine 05/06/21 Henry Kelly MD Pulmonary Department 175 [facility], [address] [place] [address] Physician Pulmonary Disease 09/06/17 06/22/20 documented as of this encounter
--- OUTSIDE RECORDS SUMMARY | 2024-09-09 01:45 | XMS_ITS | Encounter Summary ---
Author Organization [facility] Address [address] [place] [address] Care Team Providers Care Community Health Counselor Name Role Phone Caitlyn Bowie MD Primary Care Provider +1- [phone] Encounter Details Date Type Department Care Team (Late st Contact Info) Description 12/29/2021 Telephone [facility] [address] - [address] [address] Ronald Mills MD [address] [place] [address] Social History Tobacco Use Types Packs/Day [...] not sure where the blood's coming from. [phone] documented in this encounter Plan of Treatment Upcoming Encounters Date Type Department Care Team (Late st Contact Info) Description 09/30/2024 8:30 PM EDT Procedure visit [facility] [address] [place] [address] [address] [place] [address] 10/31/2024 1:00 PM EDT Telemedicine Cancer Center at [facility] 240 [facility] [address] [place], [place] [address] Ronald Mills MD 240 [facility] A1 [place] [address] documented as of this encounter Visit Diagnoses Not on filedocumented in this encounter Additional Health Concerns Infection Onset Date Last Indicated Resolved Time COVID-19 03/05/2022 03/05/2022 03/15/2022 7:18 PM EDT Assessment Noted Time PHQ-9 Depression Total Score: 2 11/07/19 19 2:06 PM EDT documented as of this encounter Care Teams Community Health Counselor Relationship Specialty Start Date End Date Caitlyn Bowie MD [address] [address] PCP - General Internal Medicine 05/06/21 documented as of this encounter
--- OUTSIDE RECORDS SUMMARY | 2024-09-09 01:45 | XMS_ITS | Encounter Summary ---
Author Organization [facility] and [facility] Address [address] [place] [address] Care Team Providers Care Certified Dental Assistant Name Role Phone Caitlyn Bowie MD Primary Care Provider +1- [phone] Encounter Details Date Type Department Care Team (Late st Contact Info) Description 05/04/2022 Scanned Document INTERFACE DEFAULT [address] [place] [address] System, Provider Not In Social History Tobacco [...] Description 09/30/2024 8:30 PM EDT Procedure visit [facility] [address] [place] [address] [address] [place] [address] 10/31/2024 1:00 PM EDT Telemedicine [facility] 240 [facility] [address] [place] [address] Ronald Mills MD 240 [facility] A1 [place] [address] documented as of this encounter Visit Diagnoses Not on filedocumented in this encounter Additional Health Concerns Assessment Noted Time PHQ-9 Depression Total Score: 2 11/07/19 19 2:06 PM EDT documented as of this encounter Care Teams Certified Dental Assistant Relationship Specialty Start Date End Date Caitlyn Bowie MD [address] [address] PCP - General Internal Medicine 05/06/21 documented as of this encounter
--- OUTSIDE RECORDS SUMMARY | 2024-09-09 01:45 | XMS_ITS | Encounter Summary ---
Author Organization [facility] and [facility] Address [address] [place] [address] Care Team Providers Care Sweatband Drummer Name Role Phone Caitlyn Bowie MD Primary Care Provider +1- [phone] Encounter Details Date Type Department Care Team (Late st Contact Info) Description 02/06/2019 Scanned Document [facility] Health Information Management [address] [place] [address] External, Provider Social History Tobacco Use Types [...] Description 09/30/2024 8:30 PM EDT Procedure visit [facility] [address] [place] [address] [address] [place] [address] 10/31/2024 1:00 PM EDT [facility]medicine [facility] 240 [facility] [address] [place] [address] Ronald Mills MD 240 [facility] A1 [place] [address] documented as of this encounter Procedures Procedure [...] documented as of this encounter Care Teams Sweatband Drummer Relationship Specialty Start Date End Date Caitlyn Bowie MD 3400 [facility] Max 1 [place] [address] PCP - General Internal Medicine 05/06/21 Henry Kelly MD Pulmonary Department 175 [facility], [address] [place] [address] Physician Pulmonary Disease 09/06/17 06/22/20 documented as of this encounter
--- OUTSIDE RECORDS SUMMARY | 2024-09-09 01:45 | XMS_ITS | Encounter Summary ---
Author Organization [facility] and [facility] Address [address] [place] [address] Care Team Providers Care Forklift Technician Name Role Phone Caitlyn Bowie MD Primary Care Provider +1- [phone] Encounter Details Date Type Department Care Team (Late st Contact Info) Description 04/11/2019 Scanned Document [facility] Health Information Management [address] [place] [address] External, Provider Social History Tobacco Use Types [...] 09/30/2024 8:30 PM EDT Procedure visit [facility] [address] [place] [address] [address] [place] [address] 10/31/2024 1:00 PM EDT [facility] 240 [facility] [address] [place] [address] Ronald Mills MD 240 [facility] A1 [place] [address] documented as of this encounter Procedures Procedure [...] documented as of this encounter Care Teams Forklift Technician Relationship Specialty Start Date End Date Caitlyn Bowie MD 3400 [facility] Max 1 [place] [address] PCP - General Internal Medicine 05/06/21 Henry Kelly MD Pulmonary Department 175 [facility], [address] [place] [address] Physician Pulmonary Disease 09/06/17 06/22/20 documented as of this encounter
--- OUTSIDE RECORDS SUMMARY | 2024-09-09 01:45 | XMS_ITS | Encounter Summary ---
Author Organization [facility] and [facility] Address [address] [place] [address] Care Team Providers Care Tools Administrator Name Role Phone Caitlyn Bowie MD Primary Care Provider +1- [phone] Encounter Details Date Type Department Care Team (Late st Contact Info) Description 09/09/2015 Scanned Document [facility] Health Information Management [address] [place] [address] External, Provider Social History Tobacco Use Types [...] Description 09/30/2024 8:30 PM EDT Procedure visit [facility] [address] [place] [address] [address] [place] [address] 10/31/2024 1:00 PM EDT Telemedicine [facility] 240 [facility] Building [address] [place], [place] [address] Ronald Mills MD 240 [facility] A1 [place] [address] documented as of this encounter Procedures Procedure Name Priority Date/Time Associated Diagnosis Comments LAB SCAN Routine 09/09/2015 documented in this encounter Results * Lab Scan (09/09/2015) Blood specimen (specimen) us Provider External LAB BLOOD ORDERABLES Final Res ult Performing Organization Address City/State/[facility] Co de Phone Number [facility] documented in this encounter Visit Diagnoses Not on filedocumented in this encounter Additional Health Concerns Infection Onset Date Last Indicated Resolved Time COVID-19 03/05/2022 03/05/2022 03/15/2022 7:18 PM EDT documented as of this encounter Care Teams Tools Administrator Relationship Specialty Start Date End Date Caitlyn Bowie MD 3400 [facility] Max 1 [place] [address] PCP - General Internal Medicine 05/06/21 Henry Kelly MD Pulmonary Department 175 [facility], [address] [place] [address] Physician Pulmonary Disease 09/06/17 06/22/20 documented as of this encounter
--- OUTSIDE RECORDS SUMMARY | 2024-09-09 01:45 | XMS_ITS | Encounter Summary ---
Author Organization [facility] and [facility] Address [address] [place] [address] Care Team Providers Care Course Developer Name Role Phone Caitlyn Bowie MD Primary Care Provider +1- [phone] Encounter Details Date Type Department Care Team (Late st Contact Info) Description 12/06/2018 Scanned Document [facility] Health Information Management [address] [place] [address] External, Provider Social History Tobacco Use Types [...] Description 09/30/2024 8:30 PM EDT Procedure visit [facility] [address] [place] [address] [address] [place] [address] 10/31/2024 1:00 PM EDT Telemedicine [facility] 240 [facility] Building [address] [place], [place] [address] Ronadl Mills MD 240 [facility] [address]1 [place] [address] documented as of this encounter [...] documented as of this encounter Care Teams Course Developer Relationship Specialty Start Date End Date Caitlyn Bowie MD 3400 [facility] 1 [place] [address] PCP - General Internal Medicine 05/06/21 Henry Kelly MD Pulmonary Department [address] [place] [address], [address] [place] [address] Physician Pulmonary Disease 09/06/17 06/22/20 documented as of this encounter
--- OUTSIDE RECORDS SUMMARY | 2024-09-09 01:45 | XMS_ITS | Encounter Summary ---
Author Organization [facility] and [facility] Address [address] [place] [address] Care Team Providers Care Journeyman Electrician Pv Installer Name Role Phone Caitlyn Bowie MD Primary Care Provider +1- [phone] Encounter Details Date Type Department Care Team (Late st Contact Info) Description 05/02/2022 Scanned Document INTERFACE DEFAULT [address] [place] [address] System, Provider Not In Social History Tobacco [...] Description 09/30/2024 8:30 PM EDT Procedure visit [facility] [address] [place] [address] [address] [place] [address] 10/31/2024 1:00 PM EDT Telemedicine [facility] at [facility] 240 [facility] [address] [place] [address] Ronald Mills MD 240 [facility] [address]1 [place] [address] documented as of this encounter Procedures Procedure [...] as of this encounter Care Teams Journeyman Electrician Pv Installer Relationship Specialty Start Date End Date Caitlyn Bowie MD [facility] [address] [address] PCP - General Internal Medicine 05/06/21 documented as of this encounter
--- OUTSIDE RECORDS SUMMARY | 2024-09-09 01:45 | XMS_ITS | Encounter Summary ---
Author Organization [facility] Address [address] [place] [address] Care Team Providers Care Belly Roller Name Role Phone Caitlyn Bowie MD Primary Care Provider +1- [phone] Reason for Visit * Reason Comments Results Encounter Details Date Type Department Care Team (Late st Contact Info) Description 03/15/2022 Telephone [facility] at [address] [address] Ronald Mills MD [address] [place] [phone] Results Social History Tobacco Use Types [...] EDT Procedure visit [facility] [address] [place] [address] [address] [place] [address] 10/31/2024 1:00 PM EDT Telemedicine [facility] at [facility] 240 [facility] [address] [place], [place] [address] Ronald Mills MD 240 [facility] A1 [place] [address] documented as of this encounter Visit Diagnoses Not on filedocumented in this encounter Additional Health Concerns Infection Onset Date Last Indicated Resolved Time COVID-19 03/05/2022 03/05/2022 03/15/2022 7:18 PM EDT Assessment Noted Time PHQ-9 Depression Total Score: 2 11/07/19 19 2:06 PM EDT documented as of this encounter Care Teams Belly Roller Relationship Specialty Start Date End Date Caitlyn Bowie MD [address] [address] PCP - General Internal Medicine 05/06/21 documented as of this encounter
--- OUTSIDE RECORDS SUMMARY | 2024-09-09 01:46 | XMS_ITS | Encounter Summary ---
Author Organization [facility] and [facility] Address [address] [place] [address] Care Team Providers Care Collections Curator Name Role Phone Caitlyn Bowie MD Primary Care Provider +1- [phone] Encounter Details Date Type Department Care Team (Late st Contact Info) Description 12/14/2016 Scanned Document [facility] Health Information Management [address] [place] [address] External, Provider Social History Tobacco Use Types [...] Description 09/30/2024 8:30 PM EDT Procedure visit [facility] [address] [place] [address] [address] [place] [address] 10/31/2024 1:00 PM EDT Telemedicine [facility] at [facility] 240 [facility] Building [address] [place], [place] [address] Ronald Mills MD 240 [facility] A1 [place] [address] documented as of this encounter Procedures Procedure [...] documented as of this encounter Care Teams Collections Curator Relationship Specialty Start Date End Date Caitlyn Bowie MD 3400 [facility] 1 [place] [address] PCP - General Internal Medicine 05/06/21 Henry Kelly MD Pulmonary Department 175 [facility], [address] [place] [address] Physician Pulmonary Disease 09/06/17 06/22/20 documented as of this encounter
--- OUTSIDE RECORDS SUMMARY | 2024-09-09 01:46 | XMS_ITS | Encounter Summary ---
Author Organization [facility] Address [address] [place] [address] Care Team Providers Care Nursing Administrator Name Role Phone Caitlyn Bowie MD Primary Care Provider +1- [phone] Encounter Details Date Type Department Care Team (Late st Contact Info) Description 06/17/2016 Scanned Document [facility] Health Information Management [address] [place] [address] External, Provider Social History Tobacco Use Types [...] Description 09/30/2024 8:30 PM EDT Procedure visit [facility] [address] [place] [address] [address] [place] [address] 10/31/2024 1:00 PM EDT Telemedicine [facility] at [facility] 240 [facility] Building [address] [place], [place] [address] Ronald Mills MD 240 [facility] A1 [place] [address] documented as of this encounter Visit Diagnoses Not on filedocumented in this encounter Additional Health Concerns Infection Onset Date Last Indicated Resolved Time COVID-19 03/05/2022 03/05/2022 03/15/2022 7:18 PM EDT documented as of this encounter Care Teams Nursing Administrator Relationship Specialty Start Date End Date Caitlyn Bowie MD 3400 [facility] [address] 1 [place] [address] PCP - General Internal Medicine 05/06/21 Henry Kelly MD Pulmonary Department 175 [facility], [address] [place] [address] Physician Pulmonary Disease 09/06/17 06/22/20 documented as of this encounter
--- OUTSIDE RECORDS SUMMARY | 2024-09-09 01:46 | XMS_ITS | Encounter Summary ---
Author Organization [facility] and [facility] Address [address] [place] [address] Care Team Providers Care Concrete Inspector Name Role Phone Caitlyn Bowie MD Primary Care Provider +1- [phone] Encounter Details Date Type Department Care Team (Late st Contact Info) Description 12/14/2016 Scanned Document [facility] Health Information Management [address] [place] [address] External, Provider Social History Tobacco Use Types [...] Description 09/30/2024 8:30 PM EDT Procedure visit [facility] [address] [place] [address] [address] [place] [address] 10/31/2024 1:00 PM EDT Telemedicine [facility] at [facility] 240 [facility] Building [address] [place], [place] [address] Ronald Mills MD 240 [facility] A1 [place] [address] documented as of this encounter Visit Diagnoses Not on filedocumented in this encounter Additional Health Concerns Infection Onset Date Last Indicated Resolved Time COVID-19 03/05/2022 03/05/2022 03/15/2022 7:18 PM EDT documented as of this encounter Care Teams Concrete Inspector Relationship Specialty Start Date End Date Caitlyn Bowie MD 3400 [facility] [address] 1 [place] [address] PCP - General Internal Medicine 05/06/21 Henry Kelly MD Pulmonary Department 175 [facility], [address] [place] [address] Physician Pulmonary Disease 09/06/17 06/22/20 documented as of this encounter
--- OUTSIDE RECORDS SUMMARY | 2024-09-09 01:46 | XMS_ITS | Encounter Summary ---
Author Organization [facility] Address [address] [place] [address] Care Team Providers Care Printmaker Name Role Phone Caitlyn Bowie MD Primary Care Provider +1- [phone] Encounter Details Date Type Department Care Team (Late st Contact Info) Description 06/17/2016 Scanned Document [facility] Health Information Management [address] [place] [address] External, Provider Social History Tobacco Use Types [...] Description 09/30/2024 8:30 PM EDT Procedure visit [facility] [address] [place] [address] [address] [place] [address] 10/31/2024 1:00 PM EDT Telemedicine [facility] at [facility] 240 [facility] Building [address] [place], [place] [address] Ronald Mills MD 240 [facility] A1 [place] [address] documented as of this encounter Procedures Procedure Name Priority Date/Time Associated Diagnosis Comments XRAY RESULT SCAN Routine 06/17/2016 documented in this encounter Results * Xray Result Scan (06/17/2016) us Provider External IMG SCAN REPORTS Final Result Performing Organization Address City/State/[facility] Co de Phone Number [facility] [place], [place], [facility] documented in this encounter Visit Diagnoses Not on filedocumented in this encounter Additional Health Concerns Infection Onset Date Last Indicated Resolved Time COVID-19 03/05/2022 03/05/2022 03/15/2022 7:18 PM EDT documented as of this encounter Care Teams Printmaker Relationship Specialty Start Date End Date Caitlyn Bowie MD 3400 [facility] 1 [place] [address] PCP - General Internal Medicine 05/06/21 Henry Kelly MD Pulmonary Department 175 [facility], [address] [place] [address] Physician Pulmonary Disease 09/06/17 06/22/20 documented as of this encounter
--- OUTSIDE RECORDS SUMMARY | 2024-09-09 01:46 | XMS_ITS | Encounter Summary ---
Author Organization [facility] and [facility] Address [address] [place] [address] Care Team Providers Care Manager Convention Name Role Phone Caitlyn oBwie MD Primary Care Provider +1- [phone] Encounter Details Date Type Department Care Team (Late st Contact Info) Description 07/27/2016 Scanned Document Thoracic Oncology Program at [address] [address] Suzy Kong MD [address] [place] [phone] Social History Tobacco Use Types Packs/Day [...] Procedure visit [facility] [address] [place] [address] [address] [place] [address] 10/31/2024 1:00 PM EDT Telemedicine Cancer Center at [address] [place] [address] Ronald Mills MD [address] [place] [address], [place] [address] documented as of this encounter Visit Diagnoses Not on filedocumented in this encounter Additional Health Concerns Infection Onset Date Last Indicated Resolved Time COVID-19 03/05/2022 03/05/2022 03/15/2022 7:18 PM EDT documented as of this encounter Care Teams Manager Convention Relationship Specialty Start Date End Date Caitlyn Bowie MD 3400 [facility] 1 [place] [address] PCP - General Internal Medicine 05/06/21 Henry Kelly MD Pulmonary Department [address] [place] [address], [address] [place] [address] Physician Pulmonary Disease 09/06/17 06/22/20 documented as of this encounter
--- OUTSIDE RECORDS SUMMARY | 2024-09-09 01:46 | XMS_ITS | Encounter Summary ---
Author Organization [facility] and [facility] Address [address] [place] [address] Care Team Providers Care Manager Of Care Name Role Phone Caitlyn Bowie MD Primary Care Provider +1- [phone] Encounter Details Date Type Department Care Team (Late st Contact Info) Description 07/27/2016 Scanned Document Thoracic Oncology Program at [address] [address] Suzy Kong MD [address] [place] [phone] Social History Tobacco Use Types Packs/Day [...] Description 09/30/2024 8:30 PM EDT Procedure visit [facility] [address] [place] [address] [address] [place] [address] 10/31/2024 1:00 PM EDT Telemedicine Cancer Center at [address] [place] [address] Ronald Mills MD [address] [place] [address], [place] [address] documented as of this encounter Visit Diagnoses Not on filedocumented in this encounter Additional Health Concerns Infection Onset Date Last Indicated Resolved Time COVID-19 03/05/2022 03/05/2022 03/15/2022 7:18 PM EDT documented as of this encounter Care Teams Manager Of Care Relationship Specialty Start Date End Date Caitlyn Bowie MD 3400 [facility] 1 [place] [address] PCP - General Internal Medicine 05/06/21 Henry Kelly MD Pulmonary Department [address] [place] [address], [address] [place] [address] Physician Pulmonary Disease 09/06/17 06/22/20 documented as of this encounter
--- OUTSIDE RECORDS SUMMARY | 2024-09-09 01:46 | XMS_ITS | Encounter Summary ---
Author Organization [facility] and [facility] Address [address] [place] [address] Care Team Providers Care Receiving Inspector Name Role Phone Caitlyn Bowie MD Primary Care Provider +1- [phone] Encounter Details Date Type Department Care Team (Late st Contact Info) Description 04/19/2024 Scanned Document INTERFACE DEFAULT [address] [place] [address] System, Provider Not In Social History Tobacco [...] Description 09/30/2024 8:30 PM EDT Procedure visit [facility] [address] [place] [address] [address] [place] [address] 10/31/2024 1:00 PM EDT Telemedicine [facility] 240 [facility] Building [address] [place] [address] Ronald Mills MD 240 [facility] A1 [place] [address] documented as of this encounter Procedures Procedure [...] as of this encounter Care Teams Receiving Inspector Relationship Specialty Start Date End Date Caitlyn Bowie MD [facility] [address] [address] PCP - General Internal Medicine 05/06/21 documented as of this encounter
--- OUTSIDE RECORDS SUMMARY | 2024-09-09 01:46 | XMS_ITS | Encounter Summary ---
Author Organization [facility] Address [address] [place] [address] Care Team Providers Care Environmental Resource Specialist Name Role Phone Caitlyn Bowie MD Primary Care Provider +1- [phone] Encounter Details Date Type Department Care Team (Late st Contact Info) Description 12/16/2016 Scanned Document [facility] Health Information Management [address] [place] [address] External, Provider Social History Tobacco Use Types [...] Description 09/30/2024 8:30 PM EDT Procedure visit [facility] [address] [place] [address] [address] [place] [address] 10/31/2024 1:00 PM EDT Telemedicine Cancer Center at [facility] 240 [facility] Building [address] [place], [place] [address] Ronald Mills MD 240 [facility] A1 [place] [address] documented as of this encounter Procedures Procedure [...] documented as of this encounter Care Teams Environmental Resource Specialist Relationship Specialty Start Date End Date Caitlyn Bowie MD 3400 [facility] 1 [place] [address] PCP - General Internal Medicine 05/06/21 Henry Kelly MD Pulmonary Department 175 [facility], [address] [place] [address] Physician Pulmonary Disease 09/06/17 06/22/20 documented as of this encounter
--- OUTSIDE RECORDS SUMMARY | 2024-09-09 01:46 | XMS_ITS | Encounter Summary ---
Author Organization [facility] and [facility] Address [address] [place] [address] Care Team Providers Care Ski Production Supervisor Name Role Phone Caitlyn Bowie MD Primary Care Provider +1- [phone] Encounter Details Date Type Department Care Team (Late st Contact Info) Description 07/08/2016 Scanned Document [facility] Health Information Management [address] [place] [address] External, Provider Social History Tobacco Use Types [...] Description 09/30/2024 8:30 PM EDT Procedure visit [facility] [address] [place] [address] [address] [place] [address] 10/31/2024 1:00 PM EDT Telemedicine Cancer Center at [facility] 240 [facility] Building [address] [place], [place] [address] Ronald Mills MD 240 [facility] A1 [place] [address] documented as of this encounter Procedures Procedure Name Priority Date/Time Associated Diagnosis Comments LAB SCAN Routine 07/08/2016 documented in this encounter Results * Lab Scan (07/08/2016) Blood specimen (specimen) us Provider External LAB BLOOD ORDERABLES Final Res ult Performing Organization Address City/State/[facility] Co de Phone Number [facility] documented in this encounter Visit Diagnoses Not on filedocumented in this encounter Additional Health Concerns Infection Onset Date Last Indicated Resolved Time COVID-19 03/05/2022 03/05/2022 03/15/2022 7:18 PM EDT documented as of this encounter Care Teams Ski Production Supervisor Relationship Specialty Start Date End Date Caitlyn Bowie MD 3400 [facility] Max 1 [place] [address] PCP - General Internal Medicine 05/06/21 Henry Kelly MD Pulmonary Department 175 [facility], [address] [place] [address] Physician Pulmonary Disease 09/06/17 06/22/20 documented as of this encounter
--- OUTSIDE RECORDS SUMMARY | 2024-09-09 01:46 | XMS_ITS | Encounter Summary ---
Author Organization [facility] Address [address] [place] [address] Care Team Providers Care Slurry Plant Operator Name Role Phone Caitlyn Bowie MD Primary Care Provider +1- [phone] Encounter Details Date Type Department Care Team (Late st Contact Info) Description 04/04/2016 Scanned Document [facility] Health Information Management [address] [place] [address] External, Provider Social History Tobacco Use Types [...] Description 09/30/2024 8:30 PM EDT Procedure visit [facility] [address] [place] [address] [address] [place] [address] 10/31/2024 1:00 PM EDT Telemedicine [facility] 240 [facility] Building [address] [place], [place] [address] Ronald Mills MD 240 [facility] [address]1 [place] [address] documented as of this encounter Procedures Procedure Name Priority Date/Time Associated Diagnosis Comments LAB SCAN Routine 04/04/2016 documented in this encounter Results * Lab Scan (04/04/2016) Blood specimen (specimen) us Provider External LAB BLOOD ORDERABLES Final Res ult Performing Organization Address City/State/[facility] Co de Phone Number [facility] documented in this encounter Visit Diagnoses Not on filedocumented in this encounter Additional Health Concerns Infection Onset Date Last Indicated Resolved Time COVID-19 03/05/2022 03/05/2022 03/15/2022 7:18 PM EDT documented as of this encounter Care Teams Slurry Plant Operator Relationship Specialty Start Date End Date Caitlyn Bowie MD 3400 [facility] Max 1 [place] [address] PCP - General Internal Medicine 05/06/21 Henry Kelly MD Pulmonary Department 175 [facility], [address] [place] [address] Physician Pulmonary Disease 09/06/17 06/22/20 documented as of this encounter
--- OUTSIDE RECORDS SUMMARY | 2024-09-09 01:46 | XMS_ITS | Encounter Summary ---
Author Organization [facility] and [facility] Address [address] [place] [address] Care Team Providers Care Try On Baster Name Role Phone Caitlyn Bowie MD Primary Care Provider +1- [phone] Encounter Details Date Type Department Care Team (Late st Contact Info) Description 04/08/2024 Scanned Document INTERFACE DEFAULT [address] [place] [address] System, Provider Not In Social History Tobacco [...] Description 09/30/2024 8:30 PM EDT Procedure visit [facility] [address] [place] [address] [address] [place] [address] 10/31/2024 1:00 PM EDT Telemedicine Cancer Center at [facility] 240 [facility] [address] [place] [address] Ronald Mills MD 240 [facility] A1 [place] [address] documented as of this encounter Procedures Procedure [...] documented as of this encounter Care Teams Try On Baster Relationship Specialty Start Date End Date Caitlyn Bowie MD [address] [address] PCP - General Internal Medicine 05/06/21 documented as of this encounter
--- OUTSIDE RECORDS SUMMARY | 2024-09-09 01:46 | XMS_ITS | Encounter Summary ---
Author Organization [facility] Address [address] [place] [address] Care Team Providers Care Figure Refinisher And Repairer Name Role Phone Caitlyn Bowie MD Primary Care Provider +1- [phone] Encounter Details Date Type Department Care Team (Late st Contact Info) Description 12/16/2016 Scanned Document [facility] Health Information Management [address] [place] [address] External, Provider Social History Tobacco Use Types [...] Description 09/30/2024 8:30 PM EDT Procedure visit [facility] [address] [place] [address] [address] [place] [address] 10/31/2024 1:00 PM EDT Telemedicine Cancer Center at [facility] 240 [facility] Building [address] [place], [place] [address] Ronald Mills MD 240 [facility] A1 [place] [address] documented as of this encounter Procedures Procedure [...] documented as of this encounter Care Teams Figure Refinisher And Repairer Relationship Specialty Start Date End Date Caitlyn Bowie MD 3400 [facility] 1 [place] [address] PCP - General Internal Medicine 05/06/21 Henry Kelly MD Pulmonary Department 175 [facility], [address] [place] [address] Physician Pulmonary Disease 09/06/17 06/22/20 documented as of this encounter
--- OUTSIDE RECORDS SUMMARY | 2024-09-09 01:46 | XMS_ITS | Continuity of Care Document ---
Author Organization [facility] Address [address] [place] [address] [address] [place] [address] Phone Care Team Providers Care Data Entry Manager Name Role Phone Musa Hughes M.D. Unavailable [...] Encounter [facility], [address] [place] [address], [id number], tel:[phone] [facility] [place] No Information Saul Vigil. [address] [place] [address], [address] [place] [address] , . tel: [phone] Exam Level V [facility], [address] [place] [address], [id number], tel:[phone] [facility] [place] Visual Field Defect UnspOptic NeuritisLow Tension GlaucomaHeadacheH emangioma, Unspecified SiteMultiple SclerosisPhotopsi aDiplopiaConverge nce InsufficiencyDry Eye Syndrome Huy Foster. [address] [place] [address], [address] [place] [address] , . tel: [phone] Referring Provider: MD Mariama Persaud, [address] [place] [address] [place], [address]. tel:[phone] New Pt. Level V [facility] Renea Carrillo, [address] [place] [address], [id number], tel:[phone] [facility] [place] - (chief complaint) - (chief complaint) - (chief complaint) - (chief complaint) - (chief complaint) - (chief complaint) Optic NeuritisHeadacheV isual Field Defect UnspLow Tension GlaucomaLow Tension GlaucomaOptic NeuritisSeizure DisorderVisual Field Defect UnspHemangioma, Unspecified SiteConvergence InsufficiencyCoag defect von Willebrand dis 1 Huy Foster. [address] [place] [address], [id number] , . tel: [phone] Referring Provider: MD Mariama Persaud, [address] [place] [address] [place], [address]. tel:[phone] Family History Family Member Type Diagnosis Age At Onset Sister Problem (finding) Leukemia Mother Problem (finding) Cancer, lung Payers Payer name Insurance type Covered green party ID Authoriza tion(s) [place] Primary [place] [id number] BCBS NATIONAL PLAN [id number] Social History Type Description Quantity Date Captured [...]
--- OUTSIDE RECORDS SUMMARY | 2024-09-09 01:46 | XMS_ITS | Clinical Summary ---
Author Organization [facility] Address [address] [place] [address] Care Team Providers Care Wet End Tester Name Role Phone Caitlyn Bowie Primary Care Provider Allergies Active Allergy Reactions [...] Throat tightness Throat tightness Throat tightness Ipratropium [place] Unknown Medium 12/18/2021 Isosorbide Mononitrate 11/23/2020 Other [...] topic Insurance MEDICARE PART A & B [facility] Care Teams Wet End Tester Relationship Specialty Start Date End Date Caitlyn Bowie [address] [place] [address] PCP - General Internal Medicine 07/18/22
--- OUTSIDE RECORDS SUMMARY | 2024-09-09 01:46 | XMS_ITS | Encounter Summary ---
Author Organization [facility] Address [address] [place] [address] Care Team Providers Care Chalker Soles Name Role Phone Cristofer Hope MD Primary Care Provider Victorino Read MD Primary Care Provider UnavailSharon Kimbrough Primary Care Provider Unava ilBrennan Newman MD Primary Care Provider Unavailab Hayden Montes MD Unavailable [phone] Pallavi Flood NP Unavailable [phone]- [phone] Caitlyn Bowie MD Primary Care Provider Unava chhaya Encounter Details Date Type Department Care Team Description 05/19/2017 Transfer Records Medical Records [address] [place] [address] Abstract, Provider Social History Tobacco Use Types [...] on filedocumented in this encounter Care Teams Chalker Soles Relationship Specialty Start Date End Date Cristofer Hope MD PCP - General Internal Medicine 05/16/17 12/20/17 Victorino Martin MD PCP - General Internal Medicine 12/21/17 08/01/18 Sharon Vides PCP - General Internal Medicine 08/02/18 05/26/20 Brennan Burnett MD PCP - General Internal Medicine 05/27/20 12/07/21 Caitlyn Bowie MD [address] [place] [address] PCP - General Internal Medicine 12/08/21 Hayden Shah MD [address] [place], [place] [phone] Specialist Cardiovascular Disease 09/01/20 Pallavi Flood NP [address] [place], [place] [phone] Cardiology 09/01/20 documented as of this encounter
--- OUTSIDE RECORDS SUMMARY | 2024-09-09 01:46 | XMS_ITS | Encounter Summary ---
Author Organization [facility] Address [address] [place] [address] Care Team Providers Care School Based Therapist Name Role Phone Caitlyn Bowie MD Primary Care Provider +1- [phone] Encounter Details Date Type Department Care Team (Late st Contact Info) Description 10/10/2016 Scanned Document [facility] Health Information Management [address] [place] [address] External, Provider Social History Tobacco Use Types [...] Description 09/30/2024 8:30 PM EDT Procedure visit [facility] [address] [place] [address] [address] [place] [address] 10/31/2024 1:00 PM EDT Telemedicine [facility] [address] [facility] [address] [place], [place] [address] Ronald Mills MD 240 [facility] [address] [place] [address] documented as of this encounter Visit Diagnoses Not on filedocumented in this encounter Additional Health Concerns Infection Onset Date Last Indicated Resolved Time COVID-19 03/05/2022 03/05/2022 03/15/2022 7:18 PM EDT documented as of this encounter Care Teams School Based Therapist Relationship Specialty Start Date End Date Caitlyn Bowie MD 34[address] [facility] [address] [place] [address] PCP - General Internal Medicine 05/06/21 Henry Kelly MD Pulmonary Department [address] [facility], [address] [place] [address] Physician Pulmonary Disease 09/06/17 06/22/20 documented as of this encounter
--- OUTSIDE RECORDS SUMMARY | 2024-09-09 01:46 | XMS_ITS | Encounter Summary ---
Author Organization [facility] and [facility] Address [address] [place] [address] Care Team Providers Care Customs Brokerage Manager Name Role Phone Caitlyn Bowie MD Primary Care Provider [phone]- [phone] Encounter Details Date Type Department Care Team (Late st Contact Info) Description 04/23/2024 Scanned Document INTERFACE DEFAULT [address] [place] [address] System, Provider Not In Social History Tobacco [...] EDT Procedure visit [facility] [address] [place] [address] [address] [place] [phone] 10/31/2024 1:00 PM EDT Telemedicine [facility] [address] [facility] [address] [place] [address] Ronald Mills MD 240 [facility] [address] [place] [address] documented as of this encounter Procedures Procedure [...] documented as of this encounter Care Teams Customs Brokerage Manager Relationship Specialty Start Date End Date Caitlyn Bowie MD [address] [address] PCP - General Internal Medicine 05/06/21 documented as of this encounter
--- OUTSIDE RECORDS SUMMARY | 2024-09-09 01:46 | XMS_ITS | Encounter Summary ---
Author Organization [facility] and [facility] Address [address] [place] [address] Care Team Providers Care Timber Cruiser Name Role Phone Caitlyn Bowie MD Primary Care Provider +1- [phone] Encounter Details Date Type Department Care Team (Late st Contact Info) Description 07/27/2016 Scanned Document Thoracic Oncology Program at [address] [address] Suzy Kong MD [address] [place] [phone] Social History Tobacco Use Types Packs/Day [...] Description 09/30/2024 8:30 PM EDT Procedure visit [facility] [address] [place] [address] [address] [place] [address] 10/31/2024 1:00 PM EDT Telemedicine Cancer Center at [address] [place] [address] Ronald Mills MD [address] [place] [address], [place] [address] documented as of this encounter Visit Diagnoses Not on filedocumented in this encounter Additional Health Concerns Infection Onset Date Last Indicated Resolved Time COVID-19 03/05/2022 03/05/2022 03/15/2022 7:18 PM EDT documented as of this encounter Care Teams Timber Cruiser Relationship Specialty Start Date End Date Caitlyn Bowie MD 3400 [facility] 1 [place] [address] PCP - General Internal Medicine 05/06/21 Henry Kelly MD Pulmonary Department [address] [place] [address], [address] [place] [address] Physician Pulmonary Disease 09/06/17 06/22/20 documented as of this encounter
--- OUTSIDE RECORDS SUMMARY | 2024-09-09 01:46 | XMS_ITS | Encounter Summary ---
Author Organization [facility] and [facility] Address [address] [place] [address] Care Team Providers Care System Designer Name Role Phone Caitlyn Bowie MD Primary Care Provider +1- [phone] Encounter Details Date Type Department Care Team (Late st Contact Info) Description 06/17/2016 Scanned Document [facility] Health Information Management [address] [place] [address] External, Provider Social History Tobacco Use Types [...] EDT Procedure visit [facility] [address] [place] [address] [address] [place] [address] 10/31/2024 1:00 PM EDT Telemedicine [facility] at [facility] [address] [facility] [address] [place], [place] [address] Ronald Mills MD 240 [facility] [address] [place] [phone] documented as of this encounter Visit Diagnoses Not on filedocumented in this encounter Additional Health Concerns Infection Onset Date Last Indicated Resolved Time COVID-19 03/05/2022 03/05/2022 03/15/2022 7:18 PM EDT documented as of this encounter Care Teams System Designer Relationship Specialty Start Date End Date Caitlyn Bowie MD 34[address] [facility] [address] 1 [place] [address] PCP - General Internal Medicine 05/06/21 Henry Kelly MD Pulmonary Department 175 [facility], [address] [place] [address] Physician Pulmonary Disease 09/06/17 06/22/20 documented as of this encounter
--- OUTSIDE RECORDS SUMMARY | 2024-09-09 01:46 | XMS_ITS ---
Author Organization [employer] [facility] Address [address] [address] Care Team Providers Care Prepared Foods Service Team Member Name Role Phone EVELIN RAMSAY Primary Care Provider Yenny Hou Unavailable [phone] REASON FOR VISIT [facility] if[facility] disease dept Encounters Encounter Location Date Provider Diagnosis [facility] [address] [address] 06/11/2024 Yenny Elizalde Plan Of Treatment No Information Progress Notes * ONOFRE WATSON:1945 (79 yo F)Acc No.[id number]:06/11/2024 Patient:?CINDA WATSON :1945???Age:79 Y???Sex:Female Address:[address] [place] [address], [address] * true * Date:? Generated for Arely paige/Sebastian/eTransmitting on:?09/09/2024 01:44 AM EST
--- OUTSIDE RECORDS SUMMARY | 2024-09-09 01:46 | XMS_ITS | Encounter Summary ---
Author Organization [facility] Address [address] [place] [address] Care Team Providers Care Oil Tester Name Role Phone Caitlyn Bowie MD Primary Care Provider +1- [phone] Reason for Referral * Imaging (Routine) - Closed Specialty Diagnoses / Procedures Referred By Contac t Referred To Contact Procedures NM Lung Ventilation Perfusion ([facility]) External, Provider Referral ID Status Reason Start Date Expiration Date Visits Re quested Visits Authorized [id number] Closed 08/22/2016 08/22/2017 4 4 Encounter Details Date Type Department Care Team (Late st Contact Info) Description 08/22/2016 Scanned Document Thoracic Oncology Program at [address] [address] External, Provider Social History Tobacco Use Types [...] Description 09/30/2024 8:30 PM EDT Procedure visit [facility] [address] [place] [phone] 10/31/2024 1:00 PM EDT Telemedicine Cancer Center at [facility] [place] [address] [place], [place] [address] Ronald Mills MD [address] [place] [address] documented as of this encounter Procedures Procedure Name Priority Date/Time Associated Diagnosis Comments XRAY RESULT SCAN Routine 07/27/2016 CT RESULT SCAN Routine 07/27/2016 CT RESULT SCAN Routine 07/27/2016 CARDIAC EKG RESULT SCAN Routine 07/27/2016 LAB SCAN Routine 07/27/2016 NM LUNG VENTILATION PERFUSIO N ([facility]) Routine 07/27/2016 documented in this encounter Results * Xray Result Scan (07/27/2016) us Provider External IMG SCAN REPORTS Final Result Performing Organization Address [facility]/ZIP Co de Phone Number [facility] * CT Result Scan (07/27/2016) us Provider External IMG SCAN REPORTS Final Result Performing Organization Address [facility]/ZIP Co de Phone Number [facility] * Cardiac EKG Result Scan (07/27/2016) us Provider External CV CARDIAC REPORT (CVR) Final Result Performing Organization Address [facility]/ZIP Co de Phone Number [facility] [place], [place], [facility] * CT Result Scan (07/27/2016) us Provider External IMG SCAN REPORTS Final Result Performing Organization Address [facility]/ZIP Co de Phone Number [facility] * Lab Scan (07/27/2016) Blood specimen (specimen) us Provider External LAB BLOOD ORDERABLES Final Res ult [facility] [place], [place], [place] * NM Lung Ventilation Perfusion ([facility]) (07/27/2016) Anatomical Region Laterality Modality Chest, Lung Nuclear Medicine us Provider External IMG NM ORDERABLES Final Result documented in this encounter Visit Diagnoses Not on filedocumented in this encounter Additional Health Concerns Infection Onset Date Last Indicated Resolved Time COVID-19 03/05/2022 03/05/2022 03/15/2022 7:18 PM EDT documented as of this encounter Care Teams Oil Tester Relationship Specialty Start Date End Date Caitlyn Bowie MD 34[address] [facility] 1 [place] [address] PCP - General Internal Medicine 05/06/21 Henry Kelly MD Pulmonary Department [address] [facility], [address] [place] [address] Physician Pulmonary Disease 09/06/17 06/22/20 documented as of this encounter
--- OUTSIDE RECORDS SUMMARY | 2024-09-09 01:46 | XMS_ITS | Encounter Summary ---
Author Organization [facility] Address [address] [place] [address] Care Team Providers Care Brim Edge Trimmer Name Role Phone Caitlyn Bowie MD Primary Care Provider +1- [phone] Encounter Details Date Type Department Care Team (Late st Contact Info) Description 02/08/2016 Scanned Document [facility] Health Information Management [address] [place] [address] External, Provider Social History Tobacco Use Types [...] Description 09/30/2024 8:30 PM EDT Procedure visit [facility] [address] [place] [address] [address] [place] [address] 10/31/2024 1:00 PM EDT Telemedicine [facility] at [facility] [address] [facility] [address] [place], [place] [address] Ronald Mills MD 240 [facility] [address] [place] [phone] documented as of this encounter Visit Diagnoses Not on filedocumented in this encounter Additional Health Concerns Infection Onset Date Last Indicated Resolved Time COVID-19 03/05/2022 03/05/2022 03/15/2022 7:18 PM EDT documented as of this encounter Care Teams Brim Edge Trimmer Relationship Specialty Start Date End Date Caitlyn Bowie MD 34[address] [facility] [address] [place] [address] PCP - General Internal Medicine 05/06/21 Henry Kelly MD Pulmonary Department 175 [facility], [address] [place] [address] Physician Pulmonary Disease 09/06/17 06/22/20 documented as of this encounter
--- OUTSIDE RECORDS SUMMARY | 2024-09-09 01:46 | XMS_ITS | Encounter Summary ---
Author Organization [facility] Address [address] [place] [address] Care Team Providers Care Vulcanized Fiber Unit Operator Name Role Phone Cristofer Hope MD Primary Care Provider Victorino Read MD Primary Care Provider Unavaila Sharon Rios Primary Care Provider Unava ilable Brennan Burnett MD Primary Care Provider Unavailab Brennan Salmeron MD Primary Care Provider Unavailab Hayden Montes MD Unavailable Pallavi Flood NP Unavailable +1- [phone] Caitlyn Bowie MD Primary Care Provider Unava ilable Reason for Visit * Reason Onset Date Comments Wheezing 05/15/2017 Encounter Details Date Type Department Care Team Description 05/15/2017 Telephone Pulmonology - [address] [place] [address] Henry Kelly MD Wheezing Social [...] 3rd democrat insurance information Date of accident/Injury: NA How long has patient had these symptoms?: x 3 days PCP: KIET MONIQUE No account information available. documented in this encounter Plan of Treatment Not on file documented as of this encounter Visit Diagnoses Not on filedocumented in this encounter Care Teams Vulcanized Fiber Unit Operator Relationship Specialty Start Date End Date Cristofer Hope MD PCP - General Internal Medicine 05/16/17 12/20/17 Victorino Martin MD PCP - General Internal Medicine 12/21/17 08/01/18 Sharon Vides PCP - General Internal Medicine 08/02/18 05/26/20 Brennan Burnett MD PCP - General Internal Medicine 05/27/20 12/07/21 Brennan Burnett MD PCP - General 05/30/12 05/15/17 Caitlyn Bow[address] MD [address] [place] [address] PCP - General Internal Medicine 12/08/21 Hayden Shah MD [address] [place] [address] Specialist Cardiovascular Disease 09/01/20 Pallavi Flood, ALON [address] [place] [address] Cardiology 09/01/20 documented as of this encounter
--- OUTSIDE RECORDS SUMMARY | 2024-09-09 01:46 | XMS_ITS | Encounter Summary ---
Author Organization [facility] Address [address] [place] [address] Care Team Providers Care Vertical Borer Name Role Phone Caitlyn Bowie MD Primary Care Provider +1- [phone] Encounter Details Date Type Department Care Team (Late st Contact Info) Description 12/28/2018 Scanned Document [facility] Health Information Management [address] [place] [address] External, Provider Social History Tobacco Use Types [...] Description 09/30/2024 8:30 PM EDT Procedure visit [facility] [address] [place] [address] [address] [place] [address] 10/31/2024 1:00 PM EDT Telemedicine [facility] [address] [facility] [address] [place] [address] Ronald Mills MD 240 [facility] [address] [place] [phone] documented as of this encounter Procedures Procedure [...] documented as of this encounter Care Teams Vertical Borer Relationship Specialty Start Date End Date Caitlyn Bowie MD [facility] 1 [place] [address] PCP - General Internal Medicine 05/06/21 Henry Kelly MD Pulmonary Department [address] [place] [address], [address] [place] [address] Physician Pulmonary Disease 09/06/17 06/22/20 documented as of this encounter
--- OUTSIDE RECORDS SUMMARY | 2024-09-09 01:46 | XMS_ITS | Encounter Summary ---
Author Organization [facility] Address [address] [place] [address] Care Team Providers Care Political Science Chair Name Role Phone Caitlyn Bowie MD Primary Care Provider +1- [phone] Encounter Details Date Type Department Care Team (Late st Contact Info) Description 12/27/2018 Scanned Document [facility] Health Information Management [address] [place] [address] External, Provider Social History Tobacco Use Types [...] Description 09/30/2024 8:30 PM EDT Procedure visit [facility] [address] [place] [address] [address] [place] [address] 10/31/2024 1:00 PM EDT Telemedicine [facility] at [facility] [address] [facility] [address] [place] [address] Ronald Mills MD 240 [facility] [address]1 [place] [phone] documented as of this encounter Procedures Procedure [...] documented as of this encounter Care Teams Political Science Chair Relationship Specialty Start Date End Date Caitlyn Bowie MD 3400 [facility] [address] [place] [address] PCP - General Internal Medicine 05/06/21 Henry Kelly MD Pulmonary Department [address] [place] [address], [address] [place] [address] Physician Pulmonary Disease 09/06/17 06/22/20 documented as of this encounter
[2024-09-09 02:08] LABS: Venous Blood Gas Refer to POC result
[2024-09-09 02:15] LABS: INTERNATIONAL NORM RATIO 1.4 (0.9-1.1); Prothrombin Time 16.8 SEC (10.9-12.4)
[2024-09-09 02:16] LABS: VBG Base Excess 23.4 mmol/L; VBG HCO3 41 mmol/L (22-26); VBG pCO2 24 mmHg; VBG pH 7.83 (7.32-7.43); VBG pO2 48 mmHg
--- NOTE | 2024-09-09 02:28 | MHC.EDTECH ---
Patient BIBA changed into hospital attire,EKG taken per order and signed by provider, blood cultures,labs,and sars/flu/rsv obtained and sent to lab
[2024-09-09 02:31] LABS: Alanine Aminotransferase 27 U/L (0-31); Albumin Level 3.8 g/dL (3.5-5.0); Anion Gap 15 (12-20); Aspartate Amino Transferase 34 U/L (5-31); Bilirubin Direct 0.3 mg/dL (0.0-0.5); Bilirubin Total 0.5 mg/dL (0.0-1.0); Blood Urea Nitrogen 23 mg/dL (9-16); Calcium 10.9 mg/dL (8.4-10.2); Carbon Dioxide 31 mmol/L (22-29); Chloride 97 mmol/L (96-108); Creatinine Clr Calc Pharmacy 50.7; Estimated Glomerular Filt Rate > 60; Glucose Random 112 mg/dL (60-115); MANUAL DIFF FLAG NO; Potassium 3.8 mmol/L (3.3-5.1); Sodium 139 mmol/L (135-145); Total Protein 7.7 g/dL (6.5-8.0); Troponin-I High Sensitivity 15.7 ng/L (<3.5-17.0)
[2024-09-09 02:32] LABS: Basophils Absolute Auto 0.1 X10*3/uL (0.0-0.2); Basophils Percent Auto 0.7 % (0-2); Eosinophils Absolute Auto 0.1 X10*3/uL (0.0-0.4); Eosinophils Percent Auto 1.1 % (0-4); Hematocrit 36.1 % (37.0-47.0); Hemoglobin 12.1 g/dl (12.0-16.0); Imm Gran Abs Auto 0.17 X10*3/uL (0.00-0.03); Imm Gran Pct Auto 1.3 % (0.0-0.4); Lymphocytes Absolute Auto 1.1 X10*3/uL (1.2-4.9); Mean Corpuscular HGB Conc 33.5 g/dl (31.0-35.0); Mean Corpuscular Hemoglobin 33.4 pg (27.0-33.0); Mean Corpuscular Volume 99.7 fL (80.0-98.0); Mean Platelet Volume 10.9 fL (9.4-12.3); Monocytes Absolute Auto 1.1 X10*3/uL (0.1-1.2); Monocytes Percent Auto 7.9 % (2-11); Neutrophils Absolute Auto 10.8 x10*3/uL (2.0-8.3); Platelet Count 231 X10*3/uL (160-400); Red Blood Count 3.62 X10*6/uL (4.20-5.50); Red Cell Distribution Width 13.9 % (11.0-16.0); White Blood Count 13.3 X10*3/uL (4.8-10.8)
[2024-09-09 02:47] LABS: Lactic Acid 1.1 mmol/L (0.5-2.0)
[2024-09-09 02:51] LABS: Influenza A PCR NEGATIVE (Negative); Influenza B PCR NEGATIVE (Negative); Resp Syncy Virus RNA Qual PCR NEGATIVE (Negative); SARS COV2 PCR INHOUSE NEGATIVE (Negative)
[2024-09-09 02:53] LABS: B Type Natriuretic Peptide 843 pg/mL (<100)
[2024-09-09 03:06] LABS: Alkaline Phosphatase 84 U/L (39-117)
[2024-09-09 04:09] VITALS: BP 136/70; PULSE 82; RESP 17; TEMP 36.4; O2SAT 99
[2024-09-09 04:23] VITALS: BP 136/70; PULSE 82; RESP 17; TEMP 36.4; O2SAT 99
== END 2024-09-09 05:19 | disposition home or self-care (01) ==
PROVIDERS: Emergency Provider Emergency Medicine; PCP Internal Medicine
DX: J40 Bronchitis, not specified as acute or chronic (principal); J90 Pleural effusion, not elsewhere classified; R05.9 Cough, unspecified; J44.9 Chronic obstructive pulmonary disease, unspecified; I50.9 Heart failure, unspecified; I27.20 Pulmonary hypertension, unspecified; Z99.81 Dependence on supplemental oxygen; Z11.52 Encounter for screening for COVID-19
CPT/HCPCS: 0241U; 36415; 71045; 71250; 80048; 80076; 82803; 83605; 83880; 84484; 85025; 85610; 87040; 93005; 99284; 99285

== ENCOUNTER → 2024-09-09 01:23 | Outpatient (BNV) | payer MEDICARE, SELFPAY | PROVIDERS: Emergency Provider Emergency Medicine; PCP Internal Medicine; Visit Provider Internal Medicine Cardiovascular Disease | DX: I45.2 Bifascicular block (principal) | CPT/HCPCS: 93010 ==

== ENCOUNTER → 2024-09-09 01:24 | Outpatient (BNV) | payer MEDICARE, SELFPAY | PROVIDERS: Emergency Provider Emergency Medicine; PCP Internal Medicine; Visit Provider Radiology Diagnostic Radiology | DX: J98.11 Atelectasis (principal); J92.9 Pleural plaque without asbestos; J90 Pleural effusion, not elsewhere classified | CPT/HCPCS: 71250 ==

== ENCOUNTER 2024-09-11 09:56 | Outpatient (AMB) | payer MEDICARE, SELFPAY ==
[2024-09-11 09:58] VITALS: BP 106/50; PULSE 86; O2SAT 97; BMI 23.8
--- NOTE | 2024-09-11 09:58 | MHC.OFFVIS ---
Vital Signs 09/11/24 09:58 Height 5 ft 2 in Weight 130 lb 1.164 oz BMI 23.8 BP 106/50 L Blood Pressure Location Rt brachial Position Sitting Pulse 86 Pulse Source Pulse Oximeter Pulse Oximetry (%) 97 Oxygen Delivery Method Nasal Cannula Oxygen Flow Rate 2 Intake Visit Reasons: ER follow up Allergies morphine Allergy (Severe, Verified 09/11/24 10:04) Itching avocado [AVOCADO] Allergy (Mild, Verified 09/11/24 10:04) ITCHY THROAT, RASH azithromycin [AZITHROMYCIN] Allergy (Mild, Verified 09/11/24 10:04) ITCHY THROAT, RASH barium iodide [BARIUM IODIDE] Allergy (Mild, Verified 09/11/24 10:04) ITCHY THROAT, RASH barium sulfate Allergy (Mild, Verified 09/11/24 10:04) Itch bee pollen [BEE STINGS] Allergy (Mild, Verified 09/11/24 10:04) ITCHY THROAT, RASH ciprofloxacin [From CIPRO] Allergy (Mild, Verified 09/11/24 10:04) ITCHY THROAT, RASH clarithromycin [From BIAXIN] Allergy (Mild, Verified 09/11/24 10:04) ITCHY THROAT, RASH diatrizoate meglumine [From GASTROGRAFIN] Allergy (Mild, Verified 09/11/24 10:04) ITCHY THROAT, RASH diatrizoate sodium [From GASTROGRAFIN] Allergy (Mild, Verified 09/11/24 10:04) ITCHY THROAT, RASH diclofenac [From VOLTAREN] Allergy (Mild, Verified 09/11/24 10:04) ITCHY THROAT, RASH erythromycin base [ERYTHROMYCIN BASE] Allergy (Mild, Verified 09/11/24 10:04) ITCHY THROAT, RASH gentamicin [GENTAMICIN] Allergy (Mild, Verified 09/11/24 10:04) ITCHY THROAT, RASH Iodinated Contrast Media [IVP DYE] Allergy (Mild, Verified 09/11/24 10:04) ITCHY THROAT, RASH levofloxacin [From LEVAQUIN] Allergy (Mild, Verified 09/11/24 10:04) ITCHY THROAT, RASH metronidazole [From FLAGYL] Allergy (Mild, Verified 09/11/24 10:04) ITCHY THROAT, RASH moxifloxacin [From AVELOX] Allergy (Mild, Verified 09/11/24 10:04) ITCHY THROAT, RASH Penicillins [PENICILLINS] Allergy (Mild, Verified 09/11/24 10:04) ITCHY THROAT, RASH shrimp [SHRIMP] Allergy (Mild, Verified 09/11/24 10:04) ITCHY THROAT, RASH Sulfa (Sulfonamide Antibiotics) [SULFA (SULFONAMIDE ANTIBIOTICS)] Allergy (Mild, Verified 09/11/24 10:04) ITCHY THROAT, RASH vancomycin [VANCOMYCIN] Allergy (Mild, Verified 09/11/24 10:04) ITCHY THROAT, RASH clindamycin Adverse Reaction (Intermediate, Verified 09/11/24 10:04) Unknown HPI Comments Details: The patient is a 79 y/o woman with a complicated history which includes: COPD, KANDY, pulmonary HTN, history pulmonary emboli on chronic anticoagulation, lung CA Stage IIIA s/o neoadjuvant chemoradiation and Left upper lobe lobectomy. She did have a CT scan today that I personally reviewed. Has not been personally read by the radiologist. Based on my reading she has some pulmonary nodules some that are new 4 mm in the right major fissure area. Other nodules are stable. Other post operative and pulmonary fibrotic changes stable. The patient should get a CT scan in 6 months. Also to note, she did not tolerate the Incruse nor budesonide. Will consider Daliresp. She was admitted to [facility] with diverticulitis. She was placed on IV antibiotics but she left against medical advice because she did not like the antibiotic options. In the meantime she was having some issues with coughing up some blood. She is also concerned because on her visit to [facility] she did have a CT scan of the chest and she was told that she had significant scarring of her lungs in addition to lung volume loss. I have not looked at the CT scan back in reassured her that she has had this radiation fibrosis for long time and volume loss due to the scarring was present before. We did review her perfusion scan demonstrating no defects to suggest any blood clots. Interestingly in the quantitative study the patient did have 81% of the blood flow going to her right lung and 18% going to the left. This is likely due to her previous surgery and also radiation changes. 03/21/2024 the patient is here for pulmonary follow-up visit. She has multiple complaints. She is entirely seems any physicians. She is still dealing with the wound getting plenty of wound care 4. Still getting debrided. In addition to that she has had a productive cough. The phlegm is now clear but thick difficult to expectorate. Sometimes feel like it is dripping for nasal passages down like a postnasal drip. The patient is currently on cefpodoxime. She is finishing a course. We did try to get sputum in the office but she was not able to do so. I did give her a cup in order for her to be doing her own time. We will be able to look for both Gram stain culture and also AFB. The patient also had a chest x-ray which I personally reviewed and also compared to her previous x-rays. It appears that she has worsening left-sided pleural effusion. Hard to know that is long as very affected on that side there is any active disease otherwise. She has not had a CT scan since October. In view of the worsening chest x-ray in the ongoing symptoms will go ahead and request a CT scan time. The patient also could try some Mucomyst. I will send some to the pharmacy to see if we can get it. She understands that is hard to get. When she gets she can use it twice a day for CPT to see if this helps clear the secretions that gets that within her airways. In addition to that the patient has been using the BiPAP. The BiPAP therapy has been affecting beneficial. She does use it for more than 4 hours a night. However, she does have a component of hypercarbia and she would do better with the noninvasive ventilator. Currently she is set up for sleep study at [facility] coming up. Hopefully they can do a split study and try titrate her figure out what her best form of therapy it is. At some point though if she continues on the BiPAP will need to replace it because his older than 5 years. 05/09/2024 the patient is here for a pulmonary follow-up visit. Overall she is doing well from a respiratory status. She recently did have a CT scan of the chest that at [facility]. I did personally reviewed. Appears to be stable. She does have the chronic effusion in the parenchymal disease. This is all stable. She does have a small compression fracture though. Has significant osteopenia. She did have blood work with her associate teacher recently. Her antiphospholipid antibodies and anticardiolipin antibodies continue antiphospholipid antibody elevated. Her homocystine that was also elevated. She is going to start folic acid. She is concerned because her D-dimer was significantly elevated. Although she did have trauma to the legs. She had lower extremity Dopplers which were negative for any clots which is reassuring. Previous he Q scans have been reassuring. Will go ahead and repeat her blood test to see make sure that the D-dimer is coming down. If the D-dimer continues to be elevated then will do additional testing for potential occult clots. She continues on the Coumadin with a goal level 1.5-2. I do believe that she should stay on it based on the fact that she has significant symptoms and coming off the medicine may result in more security of the results specially since the Coumadin has been working for her chronic thromboembolic disease. From the wound standpoint the patient is doing better from the wound healing on her right lower extremity although she recently had another the trauma to the left. She is also dealing with a boil or a growth on the perineal area. She is going to be seeing aircraft instrument engineer for that. 08/08/2024 the patient is here for a pulmonary follow-up visit. Overall she is doing okay. She does have issues with her balance and also issues with dysuria. The patient has been also having issues with her oxygen that was at nighttime. She has been noticing worsening hypoxia. She has been using her BiPAP 16/10. She does use it with her oxygen. The patient did have a download recently and her AHI is up to 10 cm. She also had a blood gas demonstrating elevations in her CO2. Therefore, will go ahead and increase her BiPAP settings from 16-10 to 18/12. This BiPAP is about 6 years old now. The patient likely needs a replacement. Will go ahead and refer her to sleep in [place] in order for her to undergo a split study in order to get her a new PAP therapy. During the titration study component will be helpful to see if she is better off with AVAPS versus BiPAP. We did try her underlying AVAP but she could not tolerate it. She followed she did not have enough teaching. Therefore, will go ahead and increase the pressures of her BiPAP monitor her AHI and recheck a venous gas while we wait for her to see a certified sleep specialist in [place]. In the meantime she continues with her diuresis. Will go ahead and check a blood work. The patient also had a CT scan of the chest back in 03/29/2024 demonstrating no acute disease just a chronic changes. Will plan to talk about any additional imaging during her next visit. She will continue with current respiratory regimen for now. 09/11/2024 the patient is here for hospital follow-up visit. Apparently she was in the ER with worsening shortness of breath and cough. She was at [facility]. There she did have blood work. Her brain atretic peptide was significantly elevated at 100. She also did have a CT scan of the chest which I personally reviewed. She does have just chronic findings which include her radiation fibrosis decreased lung volume on the left along with the small pleural effusion on the left with the heart shifted Leftward as well volume loss. She was diagnosed with bronchitis and the patient was discharged. We did review further blood work and her sedimentation rate has been climbing slowly now at 51. in addition to that she does have a history of positive CLARA and now she is complaining of some pleuritic chest discomfort bringing up the question of underlying connective tissue disease resulting in some pleuritis. In addition to that she has been feeling episodes of increased heart rate and shortness of breath. I suspect that is likely a pulmonary vascular component. Her last echocardiogram demonstrating moderate degree of pulmonary hypertension. Unfortunately, she did not tolerate pulmonary vasodilators because if the significant amount of increase in the volume to the left ventricle then ultimately resulting in congestive heart failure. Therefore hold off on that. The patient is also anxious. She is not sleeping well. She feels that she is going to fall asleep and not wake up. She is willing to try small dose of Ambien. This will help her fall asleep and I explained to her that is not going to suppress her respiratory drive. We also did look at her blood gas that she had initially when she showed up and she had a severe case of respiratory alkalosis and she was able to breathe down her pCO2 down to 24 which is pretty significant. In addition to that she is willing to try small dose of Plaquenil to treat her for underlying pleuritis and pain and see if this can provide some relief as we repeat her blood work. She will be following up with Hematology. 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 I did print out the blood work so she can talk to her associate teacher in the meantime will go ahead and repeat her blood work as well. She continues to be on high dose of diuretics. Volume status seems to be better at this time. She continues use the oxygen with good effect. Sometimes her oxygen drops because of her cardiopulmonary disease. She does not have much pulmonary reserve. In with the pulmonary hypertension along with diastolic dysfunction this quit quickly result in hypoxia. She can take breaks though when she is sitting as lungs are oxygens above 90%. [facility] Medical History Chronic hypercapnic respiratory failure KANDY treated with BiPAP COPD (chronic obstructive pulmonary disease) Open wound Warfarin anticoagulation Complex sleep apnea syndrome Leg pain Anemia Tachycardia DVT (deep venous thrombosis) Compression fracture of body of thoracic vertebra ASD (atrial septal defect) Pleuritic chest pain History of COVID-19 Chronic anticoagulation Hypothyroidism GERD (gastroesophageal reflux disease) Hyperlipidemia Hypertension Factor 5 Leiden mutation, heterozygous History of non-ST elevation myocardial infarction (NSTEMI) Hypoxia Anxiety PTSD (post-traumatic stress disorder) Hemoptysis Dyspnea Tracheobronchitis CLARA positive Diverticulitis Allergic bronchitis (HFpEF) heart failure with preserved ejection fraction Subarachnoid bleed Insomnia Anti-phospholipid antibody syndrome Hypogammaglobulinemia Chronic respiratory failure Arterial insufficiency of lower extremity Complex regional pain syndrome i of right lower limb Post herpetic neuralgia Pulmonary hypertension Pericardial effusion Pulmonary emboli Pleural effusion Radiation fibrosis of lung Pneumonitis Pulmonary nodules Lung cancer Surgical History History of colonoscopy History of lung surgery History of tonsillectomy History of hysterectomy S/P mitral valve clip implantation History of cardiac cath Family History Sister No problems noted. Mother Cardiovascular disease Daughter Tachycardia Other KANDY (obstructive sleep apnea) Social History Household Members: Other Housing: Retirement Do you presently have visiting nurse or other home services: Yes (at home had ASSISTANT MANAGER that came to visit her) Unable to assess alcohol history related to: Unknown Alcohol intake: former Comment: stand by assist with ambulation Patient Tobacco Use Status: Never used Tobacco Second Hand Smoke Exposure: No Advance Directives Date on File: 06/15/22 service: No Current occupational status: retired Review of Systems Const Denies chills, Reports daytime sleepiness, Reports difficulty sleeping, Denies fever(s), Denies frequent falls, Denies weakness, Denies weight gain and Denies weight loss Eyes Denies change in vision ENT Denies change in voice and Denies dizziness Card Reports chest pain, Denies leg edema, Denies lightheadedness, Denies palpitations, Denies dyspnea, Reports dyspnea on exertion, Denies orthopnea and Denies other (loss of consciousness) Resp Reports cough, Reports pain on inspiration, Reports pain with cough, Denies dyspnea and Reports dyspnea on exertion GI Denies hematochezia and Denies change in stool character Musc Reports as per HPI and Reports muscle weakness Skin/Breast Reports change in pigmentation, Reports skin swelling and Reports unusual bruising Neuro Denies dizziness, Denies frequent falls and Denies weakness Psych Reports depression Endo Denies palpitations Physical Exam Vital Signs: Last Vital Signs Pulse 86 09/11/24 09:58 BP 106/50 L 09/11/24 09:58 Pulse Ox 97 09/11/24 09:58 Oxygen Delivery Method Nasal Cannula 09/11/24 09:58 Oxygen Flow Rate 2 09/11/24 09:58 BMI result Body Mass Index 23.8 Last Vital Signs Temp 97.7 F 06/20/22 08:00 Pulse 90 06/20/22 08:00 Resp 16 06/20/22 08:00 BP 137/60 06/20/22 08:00 Pulse Ox 93 06/20/22 08:00 O2 Del Method 06/20/22 08:00 O2 Flow Rate 2 06/20/22 08:00 FiO2 45 06/14/22 11:07 BMI result Body Mass Index 23.0 Const General: cooperative, comfortable, alert and awake Orientation/consciousness: patient oriented x3 HEENT Head: Yes atraumatic Eyes General: appearance normal, both eyes and all related structures Neck Neck: Yes trachea midline, Yes supple and Yes no JVD Chest Chest palpation & inspection: tenderness rib (right side) Resp Effort & Inspection: normal respiratory effort, no cough and No prolonged expiratory phase Auscultation: no rales, no rhonchi, no wheezes and diminished lung sounds Cardio Rate: regular rate Rhythm: regular rhythm Heart sounds: S1 normal heart sound present and S2 normal heart sound present GI Auscultation: normal bowel sounds Skin General skin exam: purpura and scars Neuro General: patient oriented x3 and no focal motor deficits Extrem Right lower extremity: edema Assessment & Plan Assessment & Plan (1) COPD (chronic obstructive pulmonary disease): Code(s): J44.9 - Chronic obstructive pulmonary disease, unspecified Category: Medical Qualifiers: COPD type: chronic bronchitis Chronic bronchitis type: simple Qualified Code(s): J41.0 - Simple chronic bronchitis (2) Chronic hypercapnic respiratory failure: Code(s): J96.12 - Chronic respiratory failure with hypercapnia Category: Medical (3) Pleuritic chest pain: Comment: Likely rib fracture Code(s): R07.81 - Pleurodynia Category: Medical (4) Complex sleep apnea syndrome: Code(s): G47.31 - Primary central sleep apnea Category: Medical (5) Pulmonary hypertension: Comment: severe based on RHC, moderate based on recent echo Code(s): I27.20 - Pulmonary hypertension, unspecified Category: Medical (6) Pulmonary nodules: Code(s): R91.8 - Other nonspecific abnormal finding of lung field Category: Medical (7) Chronic respiratory failure: Code(s): J96.10 - Chronic respiratory failure, unspecified whether with hypoxia or hypercapnia Category: Medical Qualifiers: Respiratory failure complication: hypoxia and hypercapnia Qualified Code(s): J96.11 - Chronic respiratory failure with hypoxia; J96.12 - Chronic respiratory failure with hypercapnia (8) KANDY treated with BiPAP: Code(s): G47.33 - Obstructive sleep apnea (adult) (pediatric) Category: Medical (9) Radiation fibrosis of lung: Code(s): J70.1 - Chronic and other pulmonary manifestations due to radiation Category: Medical (10) Diastolic CHF: Code(s): I50.30 - Unspecified diastolic (congestive) heart failure Category: Medical Qualifiers: Heart failure chronicity: chronic Qualified Code(s): I50.32 - Chronic diastolic (congestive) heart failure (11) (HFpEF) heart failure with preserved ejection fraction: Code(s): I50.30 - Unspecified diastolic (congestive) heart failure Category: Medical Qualifiers: Heart failure chronicity: chronic Qualified Code(s): I50.32 - Chronic diastolic (congestive) heart failure (12) Lung cancer: Code(s): C34.90 - Malignant neoplasm of unspecified part of unspecified bronchus or lung Category: Medical Qualifiers: Laterality: left Lung location: upper lobe of lung Qualified Code(s): C34.12 - Malignant neoplasm of upper lobe, left bronchus or lung (13) Pleural effusion: Code(s): J90 - Pleural effusion, not elsewhere classified Category: Medical Plan prednisone 2.5 mg QOD Ambien for sleep Trial Plaquenil continue Advair ASHA as needed continue ASHA (xopenex) as needed CPT with acapella valve fluticasone Oxygen 2L/pulse with activity and sleep. POC Inogen G5 duiresis as tolerated BIPAP 16/9 to 16/8 to 16/10->(AHI 10) increased to 18/12. Will request a BIPAP/ivap titration study. She would like to have her study in [place] where she had a good experience in the past. We will look into ordering a replacement PAP therapy after she has completed her titration study. CT chest stable 08/2024 at [facility] bloodwork, blood gas F/U 2 months Orders: Orders Venous Blood Gas Today J41.0 - Simple chronic bronchitis, J96.12 - Chronic respiratory failure with hypercapnia, R07.81 - Pleurodynia B Type Natriuretic Peptide Today J41.0 - Simple chronic bronchitis, J96.12 - Chronic respiratory failure with hypercapnia, R07.81 - Pleurodynia Troponin-I High Sensitivity Today J41.0 - Simple chronic bronchitis, J96.12 - Chronic respiratory failure with hypercapnia, R07.81 - Pleurodynia Complete Blood Count Auto Diff Today J41.0 - Simple chronic bronchitis, J96.12 - Chronic respiratory failure with hypercapnia, R07.81 - Pleurodynia Basic Metabolic Panel Today J41.0 - Simple chronic bronchitis, J96.12 - Chronic respiratory failure with hypercapnia, R07.81 - Pleurodynia CLARA Reflex Titer and Pattern Today J41.0 - Simple chronic bronchitis, J96.12 - Chronic respiratory failure with hypercapnia, R07.81 - Pleurodynia Erythrocyte Sedimentation Rate Today J41.0 - Simple chronic bronchitis, J96.12 - Chronic respiratory failure with hypercapnia, R07.81 - Pleurodynia Anti DNA DS Antibody Today J41.0 - Simple chronic bronchitis, J96.12 - Chronic respiratory failure with hypercapnia, R07.81 - Pleurodynia Sjogren's Antibodies Today J41.0 - Simple chronic bronchitis, J96.12 - Chronic respiratory failure with hypercapnia, R07.81 - Pleurodynia Medications: New hydroxychloroquine 200 mg PO DAILY 30 tabs 6RF 30 days zolpidem (Ambien) 5 mg PO BEDTIME PRN 30 tabs 3RF sleep 30 days mupirocin 2% 1 appl topical TID 15 grams 1RF 14 days Coding Level of Care Code Est Pt Level 5 (74756) Complex EM visit Add On G2211 Diagnoses Simple chronic bronchitis J41.0 COPD type: chronic bronchitis Chronic bronchitis type: simple Chronic hypercapnic respiratory failure J96.12 Pleuritic chest pain R07.81 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
--- OUTSIDE RECORDS SUMMARY | 2024-09-11 11:30 | XMS_ITS | Encounter Summary ---
Author Organization [facility] Address [address] [place] [id number] Care Team Providers Care Computerized Table Cutter Name Role Phone Caitlyn Bowie MD Primary Care Provider [phone]- [phone] Encounter Details Date Type Department Care Team (Late st Contact Info) Description 04/18/2018 Scanned Document [facility] Health Information Management [address] [place] [id number] External, Provider Social History Tobacco Use Types [...] Description 09/30/2024 8:30 PM EDT Procedure visit [facility] [address] [place] [address] [address] [place] [id number] 10/31/2024 1:00 PM EDT [facility] [address] [facility] [address] [place], [place] [id number] Ronald Mills MD [address] [facility] [address] [place] [address] documented as of this encounter [...] as of this encounter Care Teams Computerized Table Cutter Relationship Specialty Start Date End Date Caitlyn Bowie MD [address] [facility] [address] [place] [address] PCP - General Internal Medicine 05/06/21 Henry Kelly MD Pulmonary Department [address] [facility] [place] [address] Physician Pulmonary Disease 09/06/17 06/22/20 documented as of this encounter
--- OUTSIDE RECORDS SUMMARY | 2024-09-11 11:30 | XMS_ITS | Encounter Summary ---
Author Organization [facility] and [facility] Address [address] [place] [address] Care Team Providers Care Desktop Analyst Name Role Phone Caitlyn Bowie MD Primary Care Provider +1- [phone] Reason for Visit * Reason Comments Triage Encounter Details Date Type Department Care Team (Late st Contact Info) Description 10/18/2021 Telephone [facility] at [address] - [address] [phone] Ronald Mills MD [address] [place] [phone] Triage Social History Tobacco Use Types [...] encounter Miscellaneous Notes * Telephone Encounter - aTya Nuno RN - 10/20/2021 11:52 AM EDT [...] 09/30/2024 8:30 PM EDT Procedure visit [facility] [address] [place] [address] [address] [place] [address] 10/31/2024 1:00 PM EDT Telemedicine [facility] at [facility] 240 [facility] [address] [place], [place] [address] Ronald Mills MD 240 [facility] A1 [place] [address] documented as of this encounter Visit Diagnoses Not on filedocumented in this encounter Additional Health Concerns Infection Onset Date Last Indicated Resolved Time COVID-19 03/05/2022 03/05/2022 03/15/2022 7:18 PM EDT Assessment Noted Time PHQ-9 Depression Total Score: 2 11/07/19 19 2:06 PM EDT documented as of this encounter Care Teams Desktop Analyst Relationship Specialty Start Date End Date Caitlyn Bowie MD [address] [address] PCP - General Internal Medicine 05/06/21 documented as of this encounter
--- OUTSIDE RECORDS SUMMARY | 2024-09-11 11:30 | XMS_ITS | Encounter Summary ---
Author Organization [facility] and [facility] Address [address] [place] [address] Care Team Providers Care Provisioning Specialist Name Role Phone Caitlyn Bowie MD Primary Care Provider +1- [phone] Encounter Details Date Type Department Care Team (Late st Contact Info) Description 05/14/2020 Documentation Hematology Program at [address] [address] Taya Nuno RN Social History Tobacco Use [...] 09/30/2024 8:30 PM EDT Procedure visit [facility] [address] [place] [address] [address] [place] [address] 10/31/2024 1:00 PM EDT Telemedicine Cancer Center at [address] [place] [address] Ronald Mills MD [address] [place] [address] documented as of this encounter Visit Diagnoses Not on filedocumented in this encounter Additional Health Concerns Infection Onset Date Last Indicated Resolved Time COVID-19 03/05/2022 03/05/2022 03/15/2022 7:18 PM EDT Assessment Noted Time PHQ-9 Depression Total Score: 2 11/07/19 19 2:06 PM EDT documented as of this encounter Care Teams Provisioning Specialist Relationship Specialty Start Date End Date Caitlyn Bowie MD 3400 [facility] 1 [place] [address] PCP - General Internal Medicine 05/06/21 Henry Kelly MD Pulmonary Department [address] [place] [address], [address] [place] [address] Physician Pulmonary Disease 09/06/17 06/22/20 documented as of this encounter
--- OUTSIDE RECORDS SUMMARY | 2024-09-11 11:30 | XMS_ITS | Encounter Summary ---
Author Organization [facility] and [facility] Address [address] [place] [address] Care Team Providers Care Diamond Cleaver Name Role Phone Caitlyn Bowie MD Primary Care Provider +1- [phone] Encounter Details Date Type Department Care Team (Late st Contact Info) Description 02/20/2017 Scanned Document [facility] Health Information Management [address] [place] [address] External, Provider Social History Tobacco Use Types [...] Description 09/30/2024 8:30 PM EDT Procedure visit [facility] [address] [place] [address] [address] [place] [address] 10/31/2024 1:00 PM EDT Telemedicine Cancer [facility] at [facility] 240 [facility] Building [address] [place], [place] [address] Ronald Mills MD 240 [facility] A1 [place] [address] documented as of this encounter Procedures Procedure [...] as of this encounter Care Teams Diamond Cleaver Relationship Specialty Start Date End Date Caitlyn Bowie MD 3400 [facility] 1 [place] [address] PCP - General Internal Medicine 05/06/21 Henry Kelly MD Pulmonary Department 175 [facility], [address] [place] [address] Physician Pulmonary Disease 09/06/17 06/22/20 documented as of this encounter
--- OUTSIDE RECORDS SUMMARY | 2024-09-11 11:30 | XMS_ITS | Encounter Summary ---
Author Organization [facility] and [facility] Address [address] [place] [address] Care Team Providers Care Clinical Trial Data Manager Name Role Phone Caitlyn Bowie MD Primary Care Provider +1- [phone] Encounter Details Date Type Department Care Team (Late st Contact Info) Description 07/30/2018 Scanned Document [facility] Health Information Management [address] [place] [address] External, Provider Social History Tobacco Use Types [...] Description 09/30/2024 8:30 PM EDT Procedure visit [facility] [address] [place] [address] [address] [place] [address] 10/31/2024 1:00 PM EDT Telemedicine [facility] at [facility] 240 [facility] Building [address] [place], [place] [phone] Ronald Mills MD 240 [facility] A1 [place] [address] documented as of this encounter [...] of this encounter Care Teams Clinical Trial Data Manager Relationship Specialty Start Date End Date Caitlyn Bowie MD 3400 [facility] 1 [place] [address] PCP - General Internal Medicine 05/06/21 Henry Kelly MD Pulmonary Department 175 [facility], [address] [place] [address] Physician Pulmonary Disease 09/06/17 06/22/20 documented as of this encounter
--- OUTSIDE RECORDS SUMMARY | 2024-09-11 11:30 | XMS_ITS | Encounter Summary ---
Author Organization [facility] and [facility] Address [address] [place] [address] Care Team Providers Care Clinical Documentation Improvement Specialist Name Role Phone Caitlyn Bowie MD Primary Care Provider +1- [phone] Encounter Details Date Type Department Care Team (Late st Contact Info) Description 08/07/2018 Scanned Document [facility] Health Information Management [address] [place] [address] External, Provider Social History Tobacco Use Types [...] Description 09/30/2024 8:30 PM EDT Procedure visit [facility] [address] [place] [address] [address] [place] [address] 10/31/2024 1:00 PM EDT Telemedicine Cancer [facility] at [facility] [address] [facility] Building [address] [place], [place] [phone] Ronald Mills MD 240 [facility] A1 [place] [address] documented as of this encounter Visit Diagnoses Not on filedocumented in this encounter Additional Health Concerns Infection Onset Date Last Indicated Resolved Time COVID-19 03/05/2022 03/05/2022 03/15/2022 7:18 PM EDT documented as of this encounter Care Teams Clinical Documentation Improvement Specialist Relationship Specialty Start Date End Date Caitlyn Bowie MD 3400 [facility] 1 [place] [address] PCP - General Internal Medicine 05/06/21 Henry Kelly MD Pulmonary Department 175 [facility], [address] [place] [address] Physician Pulmonary Disease 09/06/17 06/22/20 documented as of this encounter
--- OUTSIDE RECORDS SUMMARY | 2024-09-11 11:30 | XMS_ITS | Encounter Summary ---
Author Organization [facility] and [facility] Address 20 [place] [address] Care Team Providers Care Missile Inspector Preflight Name Role Phone Caitlyn Bowie MD Primary Care Provider +1- [phone] Encounter Details Date Type Department Care Team (Late st Contact Info) Description 05/19/2020 Scanned Document Cancer Center at [address] [address] External, Provider Social History Tobacco Use Types [...] 09/30/2024 8:30 PM EDT Procedure visit [facility] [address] [place] [address] [address] [place] [address] 10/31/2024 1:00 PM EDT Telemedicine Cancer Center at [address] [place] [address] Ronald Mills MD [address] [address] documented as of this encounter [...] documented as of this encounter Care Teams Missile Inspector Preflight Relationship Specialty Start Date End Date Caitlyn Bowie MD 3400 [facility] 1 [place] [address] PCP - General Internal Medicine 05/06/21 Henry Kelly MD Pulmonary Department 175 [facility], [address] [place] [address] Physician Pulmonary Disease 09/06/17 06/22/20 documented as of this encounter
--- OUTSIDE RECORDS SUMMARY | 2024-09-11 11:30 | XMS_ITS | Encounter Summary ---
Author Organization [facility] and [facility] Address [address] [place] [address] Care Team Providers Care Maintenance Repairman Name Role Phone Caitlyn Bowie MD Primary Care Provider +1- [phone] Encounter Details Date Type Department Care Team (Late st Contact Info) Description 10/15/2018 Scanned Document [facility] Health Information Management [address] [place] [address] External, Provider Social History Tobacco Use Types [...] 09/30/2024 8:30 PM EDT Procedure visit [facility] [address] [place] [address] [address] [place] [address] 10/31/2024 1:00 PM EDT Telemedicine Cancer Center at [facility] 240 [facility] Building [address] [place], [place] [phone] Ronald Mills MD 240 [facility] A1 [place] [address] documented as of this encounter Visit Diagnoses Not on filedocumented in this encounter Additional Health Concerns Infection Onset Date Last Indicated Resolved Time COVID-19 03/05/2022 03/05/2022 03/15/2022 7:18 PM EDT documented as of this encounter Care Teams Maintenance Repairman Relationship Specialty Start Date End Date Caitlyn Bowie MD 3400 [facility] 1 [place] [address] PCP - General Internal Medicine 05/06/21 Henry Kelly MD Pulmonary Department 175 [facility], [address] [place] [address] Physician Pulmonary Disease 09/06/17 06/22/20 documented as of this encounter
--- OUTSIDE RECORDS SUMMARY | 2024-09-11 11:30 | XMS_ITS | Encounter Summary ---
Author Organization [facility] and [facility] Address [address] [place] [address] Care Team Providers Care Sourcing Analyst Name Role Phone Caitlyn Bowie MD Primary Care Provider +1- [phone] Encounter Details Date Type Department Care Team (Late st Contact Info) Description 07/08/2020 Scanned Document [facility] Health Information Management [address] [place] [address] External, Provider Social History Tobacco Use Types [...] Description 09/30/2024 8:30 PM EDT Procedure visit [facility] [address] [place] [address] [address] [place] [address] 10/31/2024 1:00 PM EDT Telemedicine [facility] 240 [facility] [address] [place] [address] Ronald Mills MD [address] [facility] A1 [place] [address] documented as of this encounter Procedures Procedure [...] documented as of this encounter Care Teams Sourcing Analyst Relationship Specialty Start Date End Date Caitlyn Bowie MD [address] [address] PCP - General Internal Medicine 05/06/21 documented as of this encounter
--- OUTSIDE RECORDS SUMMARY | 2024-09-11 11:30 | XMS_ITS | Encounter Summary ---
Author Organization [facility] and [facility] Address [address] [place] [address] Care Team Providers Care Level Vial Inspector Name Role Phone Caitlyn Bowie MD Primary Care Provider +1- [phone] Encounter Details Date Type Department Care Team (Late st Contact Info) Description 10/08/2021 Scanned Document INTERFACE DEFAULT [address] [place] [address] System, Provider Not In Social History Tobacco [...] Description 09/30/2024 8:30 PM EDT Procedure visit [facility] [address] [place] [address] [address] [place] [address] 10/31/2024 1:00 PM EDT Telemedicine Cancer Center at [facility] 240 [facility] [address] [place] [address] Ronald Mills MD 240 [facility] A1 [place] [address] documented as of this encounter Procedures Procedure [...] documented as of this encounter Care Teams Level Vial Inspector Relationship Specialty Start Date End Date Caitlyn Bowie MD [facility] [address] [address] PCP - General Internal Medicine 05/06/21 documented as of this encounter
--- OUTSIDE RECORDS SUMMARY | 2024-09-11 11:30 | XMS_ITS | Encounter Summary ---
Author Organization [facility] and [facility] Address [address] [place] [address] Care Team Providers Care Hardboard Grinder Name Role Phone Caitlyn Bowie MD Primary Care Provider +1- [phone] Encounter Details Date Type Department Care Team (Late st Contact Info) Description 04/16/2018 Scanned Document [facility] Health Information Management [address] [place] [address] External, Provider Social History Tobacco Use Types [...] Description 09/30/2024 8:30 PM EDT Procedure visit [facility] [address] [place] [address] [address] [place] [address] 10/31/2024 1:00 PM EDT Telemedicine Cancer Center at [facility] 240 [facility] Building [address] [place], [place] [address] Ronald Mills MD 240 [facility] A1 [place] [address] documented as of this encounter Visit Diagnoses Not on filedocumented in this encounter Additional Health Concerns Infection Onset Date Last Indicated Resolved Time COVID-19 03/05/2022 03/05/2022 03/15/2022 7:18 PM EDT documented as of this encounter Care Teams Hardboard Grinder Relationship Specialty Start Date End Date Caitlyn Bowie MD 3400 [facility] 1 [place] [address] PCP - General Internal Medicine 05/06/21 Henry Kelly MD Pulmonary Department 175 [facility], [address] [place] [address] Physician Pulmonary Disease 09/06/17 06/22/20 documented as of this encounter
--- OUTSIDE RECORDS SUMMARY | 2024-09-11 11:30 | XMS_ITS | Encounter Summary ---
Author Organization [facility] and [facility] Address [address] [place] [address] Care Team Providers Care Guide Name Role Phone Caitlyn Bowie MD Primary Care Provider +1- [phone] Encounter Details Date Type Department Care Team (Late st Contact Info) Description 02/02/2017 Scanned Document [facility] Health Information Management [address] [place] [address] External, Provider Social History Tobacco Use Types [...] Description 09/30/2024 8:30 PM EDT Procedure visit [facility] [address] [place] [address] [address] [place] [address] 10/31/2024 1:00 PM EDT Telemedicine Cancer [facility] at [facility] 240 [facility] Building [address] [place], [place] [address] Ronald Mills MD 240 [facility] A1 [place] [address] documented as of this encounter Visit Diagnoses Not on filedocumented in this encounter Additional Health Concerns Infection Onset Date Last Indicated Resolved Time COVID-19 03/05/2022 03/05/2022 03/15/2022 7:18 PM EDT documented as of this encounter Care Teams Guide Relationship Specialty Start Date End Date Caitlyn Bowie MD 3400 [facility] 1 [place] [address] PCP - General Internal Medicine 05/06/21 Henry Kelly MD Pulmonary Department 175 [facility], [address] [place] [address] Physician Pulmonary Disease 09/06/17 06/22/20 documented as of this encounter
--- OUTSIDE RECORDS SUMMARY | 2024-09-11 11:30 | XMS_ITS | Encounter Summary ---
Author Organization [facility] Address [address] [place] [address] Care Team Providers Care Paunch Trimmer Name Role Phone Caitlyn Bowie MD Primary Care Provider +1- [phone] Encounter Details Date Type Department Care Team (Late st Contact Info) Description 11/19/2021 Scanned Document Cardiovascular Medicine at [address] [place] [address] Norma Renee MD [address] [place] [phone] Social History Tobacco Use Types Packs/Day Years [...] 09/30/2024 8:30 PM EDT Procedure visit [facility] [address] [place] [address] [address] [place] [address] 10/31/2024 1:00 PM EDT Telemedicine Cancer Center at [address] [place], [place] [address] Ronald Mills MD 240 [facility] Max A1 [place] [address] documented as of this encounter Visit Diagnoses Not on filedocumented in this encounter Additional Health Concerns Infection Onset Date Last Indicated Resolved Time COVID-19 03/05/2022 03/05/2022 03/15/2022 7:18 PM EDT Assessment Noted Time PHQ-9 Depression Total Score: 2 11/07/19 19 2:06 PM EDT documented as of this encounter Care Teams Paunch Trimmer Relationship Specialty Start Date End Date Caitlyn Bowie MD [address] [address] PCP - General Internal Medicine 05/06/21 documented as of this encounter
--- OUTSIDE RECORDS SUMMARY | 2024-09-11 11:30 | XMS_ITS | Encounter Summary ---
Author Organization [facility] Address [address] [place] [address] Care Team Providers Care Project Systems Engineer Name Role Phone Caitlyn Bowie MD Primary Care Provider +1- [phone] Encounter Details Date Type Department Care Team (Late st Contact Info) Description 03/14/2018 Scanned Document [facility] Health Information Management [address] [place] [address] External, Provider Social History Tobacco Use Types [...] Description 09/30/2024 8:30 PM EDT Procedure visit [facility] [address] [place] [address] [address] [place] [address] 10/31/2024 1:00 PM EDT Telemedicine Cancer Center at [facility] 240 [facility] Building [address] [place], [place] [address] Ronald Mills MD 240 [facility] A1 [place] [address] documented as of this encounter [...] as of this encounter Care Teams Project Systems Engineer Relationship Specialty Start Date End Date Caitlyn Bowie MD 3400 [facility] 1 [place] [address] PCP - General Internal Medicine 05/06/21 Henry Kelly MD Pulmonary Department 175 [facility], [address] [place] [address] Physician Pulmonary Disease 09/06/17 06/22/20 documented as of this encounter
--- OUTSIDE RECORDS SUMMARY | 2024-09-11 11:30 | XMS_ITS | Clinical Summary ---
Author Organization [facility] Address [address] [place] [address] Care Team Providers Care Hand Braille Transcriber Name Role Phone Caitlyn Bowie MD Primary Care Provider +1- [phone] Allergies Active Allergy Reactions Criticality Noted Date [...] Breath High 05/09/2008 Bronchospasm or Wheezing Ipratropium [place] Unknown/Patient and Family Unable to Define Medium [...] 1 capsule by mouth daily. Active B Oenxqbf-U-Ljkfp Acid (STRESS 500 B-COMPLEX PO) Take 1 [...] age to complete this topic Care Teams Hand Braille Transcriber Relationship Specialty Start Date End Date Caitlyn Bowie MD [facility] [place] [address] PCP - General Internal Medicine 03/20/23
--- OUTSIDE RECORDS SUMMARY | 2024-09-11 11:30 | XMS_ITS | Encounter Summary ---
Author Organization [facility] Address [address] [place] [address] Care Team Providers Care Ropeman Name Role Phone Caitlyn Bowie MD Primary Care Provider +1- [phone] Encounter Details Date Type Department Care Team (Late st Contact Info) Description 02/20/2017 Scanned Document [facility] Health Information Management [address] [place] [address] External, Provider Social History Tobacco Use Types [...] Description 09/30/2024 8:30 PM EDT Procedure visit [facility] [address] [place] [address] [address] [place] [address] 10/31/2024 1:00 PM EDT Telemedicine Cancer Center at [facility] 240 [facility] Building [address] [place], [place] [address] Ronald Mills MD 240 [facility] A1 [place] [address] documented as of this encounter Procedures Procedure [...] documented as of this encounter Care Teams Ropeman Relationship Specialty Start Date End Date Caitlyn Bowie MD 3400 [facility] 1 [place] [address] PCP - General Internal Medicine 05/06/21 Henry Kelly MD Pulmonary Department 175 [facility], [address] [place] [address] Physician Pulmonary Disease 09/06/17 06/22/20 documented as of this encounter
--- OUTSIDE RECORDS SUMMARY | 2024-09-11 11:30 | XMS_ITS | Encounter Summary ---
Author Organization [facility] Address [address] [place] [address] Care Team Providers Care Pyrotechnist Name Role Phone Caitlyn Bowie MD Primary Care Provider +1- [phone] Encounter Details Date Type Department Care Team (Late st Contact Info) Description 11/18/2021 Scanned Document INTERFACE DEFAULT [address] [place] [address] System, Provider Not In Social History Tobacco [...] Description 09/30/2024 8:30 PM EDT Procedure visit [facility] [address] [place] [address] [address] [place] [address] 10/31/2024 1:00 PM EDT Telemedicine [facility] at [facility] 240 [facility] Building [address] [place] [address] Ronald Mills MD 240 [facility] A1 [place] [address] documented as of this encounter Visit Diagnoses Not on filedocumented in this encounter Additional Health Concerns Infection Onset Date Last Indicated Resolved Time COVID-19 03/05/2022 03/05/2022 03/15/2022 7:18 PM EDT Assessment Noted Time PHQ-9 Depression Total Score: 2 11/07/19 19 2:06 PM EDT documented as of this encounter Care Teams Pyrotechnist Relationship Specialty Start Date End Date Caitlyn Bowie MD [address] [address] PCP - General Internal Medicine 05/06/21 documented as of this encounter
--- OUTSIDE RECORDS SUMMARY | 2024-09-11 11:30 | XMS_ITS | Encounter Summary ---
Author Organization [facility] and [facility] Address [address] [place] [address] Care Team Providers Care Monogram And Letter Paster Name Role Phone Caitlyn Bowie MD Primary Care Provider +1- [phone] Encounter Details Date Type Department Care Team (Late st Contact Info) Description 04/03/2018 Scanned Document [facility] [address] [place] [address] Provider, historical . Social History Tobacco Use [...] Description 09/30/2024 8:30 PM EDT Procedure visit [facility] [address] [place] [address] [address] [place] [address] 10/31/2024 1:00 PM EDT Telemedicine [facility] at [facility] 240 [facility] Building [address] [place], [place] [address] Ronald Mills MD 240 [facility] A1 [place] [address] documented as of this encounter [...] documented as of this encounter Care Teams Monogram And Letter Paster Relationship Specialty Start Date End Date Caitlyn Bowie MD 3400 [facility] 1 [place] [address] PCP - General Internal Medicine 05/06/21 Henry Kelly MD Pulmonary Department 175 [facility], [address] [place] [address] Physician Pulmonary Disease 09/06/17 06/22/20 documented as of this encounter
--- OUTSIDE RECORDS SUMMARY | 2024-09-11 11:30 | XMS_ITS | Encounter Summary ---
Author Organization [facility] and [facility] Address [address] [place] [address] Care Team Providers Care Customer Orders Clerk Name Role Phone Caitlyn Bowie MD Primary Care Provider +1- [phone] Encounter Details Date Type Department Care Team (Late Contact Info) Description 11/18/2021 Scanned Document [facility] Health Information Management [address] [place] [address] External, Provider Social History Tobacco Use Types [...] Description 09/30/2024 8:30 PM EDT Procedure visit [facility] [address] [place] [address] [address] [place] [address] 10/31/2024 1:00 PM EDT Telemedicine [facility] 240 [facility] [address] [place] [address] Ronald Mills MD 240 [facility] A1 [place] [address] documented as of this encounter Visit Diagnoses Not on filedocumented in this encounter Additional Health Concerns Infection Onset Date Last Indicated Resolved Time COVID-19 03/05/2022 03/05/2022 03/15/2022 7:18 PM EDT Assessment Noted Time PHQ-9 Depression Total Score: 2 11/07/19 19 2:06 PM EDT documented as of this encounter Care Teams Customer Orders Clerk Relationship Specialty Start Date End Date Caitlyn Bowie MD [address] [address] PCP - General Internal Medicine 05/06/21 documented as of this encounter
--- OUTSIDE RECORDS SUMMARY | 2024-09-11 11:30 | XMS_ITS | Encounter Summary ---
Author Organization [facility] and [facility] Address [address] [place] [address] Care Team Providers Care Store Merchandiser Name Role Phone Caitlyn Bowie MD Primary Care Provider +1- [phone] Encounter Details Date Type Department Care Team (Late st Contact Info) Description 12/28/2021 Scanned Document INTERFACE DEFAULT [address] [place] [address] System, Provider Not In Social History Tobacco [...] Description 09/30/2024 8:30 PM EDT Procedure visit [facility] [address] [place] [address] [address] [place] [address] 10/31/2024 1:00 PM EDT Telemedicine [facility] 240 [facility] Building [address] [place] [address] Ronald Mills MD 240 [facility] A1 [place] [address] documented as of this encounter Visit Diagnoses Not on filedocumented in this encounter Additional Health Concerns Infection Onset Date Last Indicated Resolved Time COVID-19 03/05/2022 03/05/2022 03/15/2022 7:18 PM EDT Assessment Noted Time PHQ-9 Depression Total Score: 2 11/07/19 19 2:06 PM EDT documented as of this encounter Care Teams Store Merchandiser Relationship Specialty Start Date End Date Caitlyn Bowie MD [address] [address] PCP - General Internal Medicine 05/06/21 documented as of this encounter
--- OUTSIDE RECORDS SUMMARY | 2024-09-11 11:30 | XMS_ITS | Encounter Summary ---
Author Organization [facility] and [facility] Address [address] [place] [address] Care Team Providers Care Pasta Maker Name Role Phone Caitlyn Bowie MD Primary Care Provider +1- [phone] Encounter Details Date Type Department Care Team (Late st Contact Info) Description 10/29/2021 Scanned Document [facility] Health Information Management [address] [place] [address] External, Provider Social History Tobacco Use Types [...] Description 09/30/2024 8:30 PM EDT Procedure visit [facility] [address] [place] [address] [address] [place] [address] 10/31/2024 1:00 PM EDT Telemedicine [facility] at [facility] 240 [facility] [address] [place] [address] Ronald Mills MD 240 [facility] A1 [place] [address] documented as of this encounter [...] documented as of this encounter Care Teams Pasta Maker Relationship Specialty Start Date End Date Caitlyn Bowie MD [address] [address] PCP - General Internal Medicine 05/06/21 documented as of this encounter
--- OUTSIDE RECORDS SUMMARY | 2024-09-11 11:31 | XMS_ITS | Encounter Summary ---
Author Organization [facility] and [facility] Address [address] [place] [address] Care Team Providers Care Bulk Intake Worker Name Role Phone Caitlyn Bowie MD Primary Care Provider +1- [phone] Encounter Details Date Type Department Care Team (Late st Contact Info) Description 12/16/2016 Scanned Document [facility] Health Information Management [address] [place] [address] External, Provider Social History Tobacco Use Types [...] Description 09/30/2024 8:30 PM EDT Procedure visit [facility] [address] [place] [address] [address] [place] [address] 10/31/2024 1:00 PM EDT Telemedicine [facility] at [facility] 240 [facility] Building [address] [place], [place] [address] Ronald Mills MD 240 [facility] A1 [place] [address] documented as of this encounter Procedures Procedure [...] documented as of this encounter Care Teams Bulk Intake Worker Relationship Specialty Start Date End Date Caitlyn Bowie MD 3400 [facility] Max 1 [place] [address] PCP - General Internal Medicine 05/06/21 Henry Kelly MD Pulmonary Department 175 [facility], [address] [place] [address] Physician Pulmonary Disease 09/06/17 06/22/20 documented as of this encounter
--- OUTSIDE RECORDS SUMMARY | 2024-09-11 11:31 | XMS_ITS | Encounter Summary ---
Author Organization [facility] and [facility] Address [address] [place] [address] Care Team Providers Care Solvent Plant Treater Name Role Phone Caitlyn Bowie MD Primary Care Provider +1- [phone] Encounter Details Date Type Department Care Team (Late st Contact Info) Description 06/07/2021 Scanned Document [facility] Program at [address] [address] Norma Renee MD [address] [place] [address] 2 [place] [phone] Social History Tobacco Use Types Packs/Day Years [...] Description 09/30/2024 8:30 PM EDT Procedure visit [facility] [address] [place] [address] 10/31/2024 1:00 PM EDT Telemedicine Cancer Center at [address] [place], [place] [address] Ronald Mills MD 240 [facility] Max [address] [place] [address] documented as of this encounter Visit Diagnoses Not on filedocumented in this encounter Additional Health Concerns Infection Onset Date Last Indicated Resolved Time COVID-19 03/05/2022 03/05/2022 03/15/2022 7:18 PM EDT Assessment Noted Time PHQ-9 Depression Total Score: 2 11/07/19 19 2:06 PM EDT documented as of this encounter Care Teams Solvent Plant Treater Relationship Specialty Start Date End Date Caitlyn Bowie MD [address] [address] PCP - General Internal Medicine 05/06/21 documented as of this encounter
--- OUTSIDE RECORDS SUMMARY | 2024-09-11 11:31 | XMS_ITS | Encounter Summary ---
Author Organization [facility] and [facility] Address [address] [place] [address] Care Team Providers Care Procedures Analyst Name Role Phone Caitlyn Bowie MD Primary Care Provider +1- [phone] Encounter Details Date Type Department Care Team (Late st Contact Info) Description 12/16/2016 Scanned Document [facility] Health Information Management [address] [place] [address] External, Provider Social History Tobacco Use Types [...] Description 09/30/2024 8:30 PM EDT Procedure visit [facility] [address] [place] [address] [address] [place] [address] 10/31/2024 1:00 PM EDT Telemedicine Cancer Center at [facility] 240 [facility] Building [address] [place], [place] [address] Ronald Mills MD 240 [facility] A1 [place] [address] documented as of this encounter Visit Diagnoses Not on filedocumented in this encounter Additional Health Concerns Infection Onset Date Last Indicated Resolved Time COVID-19 03/05/2022 03/05/2022 03/15/2022 7:18 PM EDT documented as of this encounter Care Teams Procedures Analyst Relationship Specialty Start Date End Date Caitlyn Bowie MD 3400 [facility] [address] 1 [place] [address] PCP - General Internal Medicine 05/06/21 Henry Kelly MD Pulmonary Department 175 [facility], [address] [place] [address] Physician Pulmonary Disease 09/06/17 06/22/20 documented as of this encounter
--- OUTSIDE RECORDS SUMMARY | 2024-09-11 11:31 | XMS_ITS | Encounter Summary ---
Author Organization [facility] and [facility] Address [address] [place] [address] Care Team Providers Care Split And Drum Room Supervisor Name Role Phone Caitlyn Bowie MD Primary Care Provider +1- [phone] Encounter Details Date Type Department Care Team (Late st Contact Info) Description 12/16/2016 Scanned Document [facility] Health Information Management [address] [place] [address] External, Provider Social History Tobacco Use Types [...] Description 09/30/2024 8:30 PM EDT Procedure visit [facility] [address] [place] [address] [address] [place] [address] 10/31/2024 1:00 PM EDT Telemedicine Cancer Center at [facility] 240 [facility] Building [address] [place], [place] [address] Ronald Mills MD 240 [facility] A1 [place] [address] documented as of this encounter Procedures Procedure [...] documented as of this encounter Care Teams Split And Drum Room Supervisor Relationship Specialty Start Date End Date Caitlyn Bowie MD 3400 [facility] 1 [place] [address] PCP - General Internal Medicine 05/06/21 Henry Kelly MD Pulmonary Department 175 [facility], [address] [place] [address] Physician Pulmonary Disease 09/06/17 06/22/20 documented as of this encounter
--- OUTSIDE RECORDS SUMMARY | 2024-09-11 11:31 | XMS_ITS | Patient Health Record ---
Author Organization [facility] Address [address] [place] [address] Care Team Providers Care Chicken Cleaner Name Role Phone Shruti Bowieberly Primary Care Provider Cristian Fountain Unavailable [phone] Allergies Allergen (clinical drug ingredient) Drug/Non Drug Allergy documented on EMR Reaction Allergy Type Onset Date Status gentamicin gentomycin (uncoded) Unknown Allergy Active Penicillin Unknown Drug Allergy Active voltarin (uncoded) Unknown Allergy A ctive erythromycin Erythromycin Unknown Drug Allergy A ctive Substance with sulfonamide structure [...] vancomycin Vancomycin Unknown Drug Allergy Activ e Reason For Referral No Information Medications Medication [...] Once a day for 30 day(s) Active Immunizations Vaccine Route Administration Date Status Comme nts Influenza Unknown 04/27/2021 Administered Social History Tobacco Use: Social History Observation Description Date Details (start date - stop date) Never Smoker NA - NA Tobacco Use/Smoking Question Answer Notes Patient is a nonsmoker Alcohol Screen Question Answer Notes Did you have a drink containing alcohol in the p ast year? No Points 0 Interpretation Negative Section Notes: Nonsmoker; no alcohol Problems Problem Type SNOMED Code ICD Code Onset Dates Problem Status W/U Status Risk Notes Problem Diverticulitis (635454075) Diverticulitis (K57.92) Active confirmed Problem Irritable bowel syndrome characterized by constipation (590163187) Irritable bowel syndrome with constipation (K58.9) Active confirmed Problem Gastroesophageal reflux disease (243146831) GERD (gastroesophageal reflux disease) (K21.9) Active confirmed Plan Of Treatment No Information Insurance Providers Payer Name Payer Address Payer Phone Subscriber Number Group Number Insured Name Patient Relationship to Insured Coverage Start Date Coverage End Date MEDICARE OF [place] [address] [place] [address] [phone] [id number] CINDA WATSON Self - patient is the insured [employer] ATT[employer] CLAIMS [address] [place] [address] [phone] [id number] CINDA WATSON Self - patient is the insured Medical (General) History Medical History History ICD Code VT-04/2021-sees Dr. 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 Gomes Pneumomias Hypothyroidism Surgical History Surgery Date(Month/Year) Tonsils and adenoids BOLA Lung cancer-Left lower lobectomy at [facility], XRT, Chemo 2008
--- OUTSIDE RECORDS SUMMARY | 2024-09-11 11:31 | XMS_ITS | Encounter Summary ---
Author Organization [facility] and [facility] Address [address] [place] [address] Care Team Providers Care Rn Clinical Name Role Phone Caitlyn Bowie MD Primary Care Provider +1- [phone] Encounter Details Date Type Department Care Team (Late st Contact Info) Description 05/05/2021 Scanned Document INTERFACE DEFAULT [address] [place] [address] System, Provider Not In Social History Tobacco [...] Description 09/30/2024 8:30 PM EDT Procedure visit [facility] [address] [place] [address] [address] [place] [address] 10/31/2024 1:00 PM EDT Telemedicine [facility] at [facility] 240 [facility] [address] [place] [address] Ronald Mills MD 240 [facility] A1 [place] [address] documented as of this encounter Visit Diagnoses Not on filedocumented in this encounter Additional Health Concerns Infection Onset Date Last Indicated Resolved Time COVID-19 03/05/2022 03/05/2022 03/15/2022 7:18 PM EDT Assessment Noted Time PHQ-9 Depression Total Score: 2 11/07/19 19 2:06 PM EDT documented as of this encounter Care Teams Rn Clinical Relationship Specialty Start Date End Date Caitlyn Bowie MD [address] [address] PCP - General Internal Medicine 05/06/21 documented as of this encounter
--- OUTSIDE RECORDS SUMMARY | 2024-09-11 11:31 | XMS_ITS | Clinical Summary ---
Author Organization [facility] Address [address] [place] [address] Care Team Providers Care Mold Yarn Supervisor Name Role Phone Brennan Burnett MD Primary Care Provider [phone] Allergies Active Allergy Reactions Criticality Noted Date [...] age to complete this topic Care Teams Mold Yarn Supervisor Relationship Specialty Start Date End Date Brennan Burnett MD [address] [place] [address] PCP - General Internal Medicine 07/06/20
--- OUTSIDE RECORDS SUMMARY | 2024-09-11 11:31 | XMS_ITS | Encounter Summary ---
Author Organization [facility] and [facility] Address [address] [place] [address] Care Team Providers Care Tap Puller Name Role Phone Caitlyn Bowie MD Primary Care Provider +1- [phone] Reason for Visit * Reason Comments Advice Only Encounter Details Date Type Department Care Team ([facility] st Contact Info) Description 06/01/2021 Telephone [facility] at [address] [phone] Ronald Mills MD [address] [place] [address] Advice Only Social History Tobacco Use [...] added that she's called before and sent RingTu messages but hasn't received a reply,[phone]. documented in this encounter Plan of Treatment Upcoming Encounters Date Type Department Care Team (Late st Contact Info) Description 09/30/2024 8:30 PM EDT Procedure visit [facility] [address] [place] [address] [address] [place] [address] 10/31/2024 1:00 PM EDT Telemedicine [facility] 240 [facility] [address] [place], [place] [address] Ronald Mills MD 240 [facility] A1 [place] [address] documented as of this encounter Visit Diagnoses Not on filedocumented in this encounter Additional Health Concerns Infection Onset Date Last Indicated Resolved Time COVID-19 03/05/2022 03/05/2022 03/15/2022 7:18 PM EDT Assessment Noted Time PHQ-9 Depression Total Score: 2 11/07/19 19 2:06 PM EDT documented as of this encounter Care Teams Tap Puller Relationship Specialty Start Date End Date Caitlyn Bowie MD [address] [address] PCP - General Internal Medicine 05/06/21 documented as of this encounter
--- OUTSIDE RECORDS SUMMARY | 2024-09-11 11:31 | XMS_ITS | Encounter Summary ---
Author Organization [facility] and [facility] Address [address] [place] [address] Care Team Providers Care Registered Occupational Therapist Name Role Phone Caitlyn Bowie MD Primary Care Provider +1- [phone] Encounter Details Date Type Department Care Team (Late st Contact Info) Description 12/16/2016 Scanned Document [facility] Health Information Management [address] [place] [address] External, Provider Social History Tobacco Use Types [...] Description 09/30/2024 8:30 PM EDT Procedure visit [facility] [address] [place] [address] [address] [place] [address] 10/31/2024 1:00 PM EDT Telemedicine Cancer Center at [facility] [address] [facility] [address] [place], [place] [address] Ronald Mills MD 240 [facility] A1 [place] [address] documented as of this encounter Procedures Procedure [...] documented as of this encounter Care Teams Registered Occupational Therapist Relationship Specialty Start Date End Date Caitlyn Bowie MD 3400 [facility] 1 [place] [address] PCP - General Internal Medicine 05/06/21 Henry Kelly MD Pulmonary Department 175 [facility], [address] [place] [address] Physician Pulmonary Disease 09/06/17 06/22/20 documented as of this encounter
--- OUTSIDE RECORDS SUMMARY | 2024-09-11 11:31 | XMS_ITS | Encounter Summary ---
Author Organization [facility] and [facility] Address [address] [place] [address] Care Team Providers Care Radio Aerial Installer Name Role Phone Caitlyn Bowie MD Primary Care Provider +1- [phone] Encounter Details Date Type Department Care Team (Late st Contact Info) Description 09/07/2020 Scanned Document Cardiovascular Medicine at [address] [address] Norma Renee MD [address] [place] [phone] Social History Tobacco Use Types Packs/Day Years [...] Description 09/30/2024 8:30 PM EDT Procedure visit [facility] [address] [place] [address] [address] [place] [address] 10/31/2024 1:00 PM EDT Telemedicine Cancer Center at [address] [place], [place] [address] Ronald Mills MD 240 [facility] Max [address] [place] [address] documented as of this encounter Visit Diagnoses Not on filedocumented in this encounter Additional Health Concerns Infection Onset Date Last Indicated Resolved Time COVID-19 03/05/2022 03/05/2022 03/15/2022 7:18 PM EDT Assessment Noted Time PHQ-9 Depression Total Score: 2 11/07/19 19 2:06 PM EDT documented as of this encounter Care Teams Radio Aerial Installer Relationship Specialty Start Date End Date Caitlyn Bowie MD [address] [address] PCP - General Internal Medicine 05/06/21 documented as of this encounter
--- OUTSIDE RECORDS SUMMARY | 2024-09-11 11:31 | XMS_ITS | Encounter Summary ---
Author Organization [facility] Address [address] [place] [address] Care Team Providers Care Medical Assistant Prn Name Role Phone Caitlyn Bowie MD Primary Care Provider +1- [phone] Encounter Details Date Type Department Care Team (Late st Contact Info) Description 04/27/2021 Scanned Document INTERFACE DEFAULT [address] [place] [address] System, Provider Not In Social History Tobacco [...] Description 09/30/2024 8:30 PM EDT Procedure visit [facility] [address] [place] [address] [address] [place] [address] 10/31/2024 1:00 PM EDT Telemedicine [facility] 240 [facility] Building [address] [place] [address] Ronald Mills MD 240 [facility] A1 [place] [address] documented as of this encounter Procedures Procedure [...] as of this encounter Care Teams Medical Assistant Prn Relationship Specialty Start Date End Date Caitlyn Bowie MD [address] [address] PCP - General Internal Medicine 05/06/21 documented as of this encounter
--- OUTSIDE RECORDS SUMMARY | 2024-09-11 11:31 | XMS_ITS | Encounter Summary ---
Author Organization [facility] and [facility] Address [address] [place] [address] Care Team Providers Care Support Staff Name Role Phone Caitlyn Bowie MD Primary Care Provider +1- [phone] Encounter Details Date Type Department Care Team (Late st Contact Info) Description 12/16/2016 Scanned Document [facility] Health Information Management [address] [place] [address] External, Provider Social History Tobacco Use Types [...] Description 09/30/2024 8:30 PM EDT Procedure visit [facility] [address] [place] [address] [address] [place] [address] 10/31/2024 1:00 PM EDT Telemedicine [facility] 240 [facility] [address] [place], [place] [address] Ronald Mills MD 240 [facility] A1 [place] [address] documented as of this encounter Procedures Procedure [...] documented as of this encounter Care Teams Support Staff Relationship Specialty Start Date End Date Caitlyn Bowie MD 3400 [facility] 1 [place] [address] PCP - General Internal Medicine 05/06/21 Henry Kelly MD Pulmonary Department 175 [facility], [address] [place] [address] Physician Pulmonary Disease 09/06/17 06/22/20 documented as of this encounter
--- OUTSIDE RECORDS SUMMARY | 2024-09-11 11:31 | XMS_ITS | Encounter Summary ---
Author Organization [facility] Address [address] [place] [address] Care Team Providers Care Development Technician Name Role Phone Caitlyn Bowie MD Primary Care Provider +1- [phone] Encounter Details Date Type Department Care Team (Late st Contact Info) Description 09/15/2020 Scanned Document [facility] at [address] [address] External, Provider Social History Tobacco Use Types [...] Description 09/30/2024 8:30 PM EDT Procedure visit [facility] [address] [place] [address] [place] [address] 10/31/2024 1:00 PM EDT Tele[facility]icine [facility] at [address] [place], [place] [address] Ronald Mills MD [address] [address] documented as of this encounter [...] documented as of this encounter Care Teams Development Technician Relationship Specialty Start Date End Date Caitlyn Bowie MD [address] [address] PCP - General Internal Medicine 05/06/21 documented as of this encounter
--- OUTSIDE RECORDS SUMMARY | 2024-09-11 11:31 | XMS_ITS | Encounter Summary ---
Author Organization [facility] and [facility] Address [address] [place] [address] Care Team Providers Care Spout Liner Helper Name Role Phone Caitlyn Bowie MD Primary Care Provider +1- [phone] Encounter Details Date Type Department Care Team (Late st Contact Info) Description 09/16/2020 Scanned Document [facility] Health Information Management [address] [place] [address] External, Provider Social History Tobacco Use Types [...] Description 09/30/2024 8:30 PM EDT Procedure visit [facility] [address] [place] [address] [address] [place] [address] 10/31/2024 1:00 PM EDT Telemedicine [facility] at [facility] 240 [facility] [address] [place] [address] Ronald Mills MD 240 [facility] A1 [place] [address] documented as of this encounter [...] documented as of this encounter Care Teams Spout Liner Helper Relationship Specialty Start Date End Date Caitlyn Bowie MD [address] [address] PCP - General Internal Medicine 05/06/21 documented as of this encounter
--- OUTSIDE RECORDS SUMMARY | 2024-09-11 11:31 | XMS_ITS | Encounter Summary ---
Author Organization [facility] Address [address] [place] [address] Care Team Providers Care Prototype Machine Operator Name Role Phone Caitlyn Bowie MD Primary Care Provider +1- [phone] Encounter Details Date Type Department Care Team (Late st Contact Info) Description 09/17/2020 Scanned Document [facility] Health Information Management [address] [place] [address] External, Provider Social History Tobacco Use Types [...] Description 09/30/2024 8:30 PM EDT Procedure visit [facility] [address] [place] [address] [address] [place] [address] 10/31/2024 1:00 PM EDT Telemedicine Cancer Center at [facility] 240 [facility] [address] [place] [address] Ronald Mills MD 240 [facility] A1 [place] [address] documented as of this encounter [...] documented as of this encounter Care Teams Prototype Machine Operator Relationship Specialty Start Date End Date Caitlyn Bowie MD [address] [address] PCP - General Internal Medicine 05/06/21 documented as of this encounter
--- OUTSIDE RECORDS SUMMARY | 2024-09-11 11:31 | XMS_ITS | Encounter Summary ---
Author Organization [facility] and [facility] Address [address] [place] [address] Care Team Providers Care Hearing And Speech Assistant Name Role Phone Caitlyn Bowie MD Primary Care Provider +1- [phone] Encounter Details Date Type Department Care Team (Late st Contact Info) Description 07/28/2018 Scanned Document [facility] Health Information Management [address] [place] [address] External, Provider Social History Tobacco Use Types [...] Description 09/30/2024 8:30 PM EDT Procedure visit [facility] [address] [place] [address] [address] [place] [address] 10/31/2024 1:00 PM EDT Telemedicine Cancer Center at [facility] 240 [facility] Building [address] [phone] Ronald Mills MD 240 [facility] A1 [address] documented as of this encounter Procedures [...] documented as of this encounter Care Teams Hearing And Speech Assistant Relationship Specialty Start Date End Date Caitlyn Bowie MD 3400 [facility] 1 [place] [address] PCP - General Internal Medicine 05/06/21 Henry Kelly MD Pulmonary Department 175 [facility], [address] [place] [address] Physician Pulmonary Disease 09/06/17 06/22/20 documented as of this encounter
--- OUTSIDE RECORDS SUMMARY | 2024-09-11 11:31 | XMS_ITS | Encounter Summary ---
Author Organization [facility] Address [address] [place] [address] Care Team Providers Care Cistern Room Operator Name Role Phone Caitlyn Bowie MD Primary Care Provider +1- [phone] Encounter Details Date Type Department Care Team (Late st Contact Info) Description 06/26/2018 Scanned Document [facility] Health Information Management [address] [place] [address] External, Provider Social History Tobacco Use Types [...] Description 09/30/2024 8:30 PM EDT Procedure visit [facility] [address] [place] [address] [address] [place] [address] 10/31/2024 1:00 PM EDT Telemedicine Cancer Center at [facility] 240 [facility] Building [address] [place], [place] [phone] Ronald Mills MD 240 [facility] A1 [place] [address] documented as of this encounter Visit Diagnoses Not on filedocumented in this encounter Additional Health Concerns Infection Onset Date Last Indicated Resolved Time COVID-19 03/05/2022 03/05/2022 03/15/2022 7:18 PM EDT documented as of this encounter Care Teams Cistern Room Operator Relationship Specialty Start Date End Date Caitlyn Bowie MD 3400 [facility] 1 [place] [address] PCP - General Internal Medicine 05/06/21 Henry Kelly MD Pulmonary Department 175 [facility] [employer] [facility] [place] [address] Physician Pulmonary Disease 09/06/17 06/22/20 documented as of this encounter
--- OUTSIDE RECORDS SUMMARY | 2024-09-11 11:31 | XMS_ITS | Encounter Summary ---
Author Organization [facility] Address [address] [place] [address] Care Team Providers Care Full Time Paramedic Name Role Phone Caitlyn Bowie MD Primary Care Provider +1- [phone] Encounter Details Date Type Department Care Team (Late st Contact Info) Description 05/27/2021 Telephone [facility] at [address] [address] Ronald Mills MD [address] [place] [address] Social History Tobacco Use Types Packs/Day [...] Description 09/30/2024 8:30 PM EDT Procedure visit [facility] [address] [place] [address] [address] [place] [address] 10/31/2024 1:00 PM EDT Telemedicine [facility] at [facility] 240 [facility] [address] [place], [place] [address] Ronald Mills MD 240 [facility] A1 [place] [address] documented as of this encounter Visit Diagnoses Not on filedocumented in this encounter Additional Health Concerns Infection Onset Date Last Indicated Resolved Time COVID-19 03/05/2022 03/05/2022 03/15/2022 7:18 PM EDT Assessment Noted Time PHQ-9 Depression Total Score: 2 11/07/19 19 2:06 PM EDT documented as of this encounter Care Teams Full Time Paramedic Relationship Specialty Start Date End Date Caitlyn Bowie MD [address] [address] PCP - General Internal Medicine 05/06/21 documented as of this encounter
--- OUTSIDE RECORDS SUMMARY | 2024-09-11 11:31 | XMS_ITS | Encounter Summary ---
Author Organization [facility] Address [address] [place] [address] Care Team Providers Care Manager Property Name Role Phone Caitlyn Bowie MD Primary Care Provider +1- [phone] Encounter Details Date Type Department Care Team (Late st Contact Info) Description 12/16/2016 Scanned Document [facility] Health Information Management [address] [place] [address] External, Provider Social History Tobacco Use Types [...] Description 09/30/2024 8:30 PM EDT Procedure visit [facility] [address] [place] [address] [address] [place] [address] 10/31/2024 1:00 PM EDT Telemedicine Cancer Center at [facility] 240 [facility] Building [address] [place], [place] [address] Ronald Mills MD 240 [facility] A1 [place] [address] documented as of this encounter Procedures Procedure [...] as of this encounter Care Teams Manager Property Relationship Specialty Start Date End Date Caitlyn Bowie MD 3400 [facility] 1 [place] [address] PCP - General Internal Medicine 05/06/21 Henry Kelly MD Pulmonary Department 175 [facility], [address] [place] [address] Physician Pulmonary Disease 09/06/17 06/22/20 documented as of this encounter
--- OUTSIDE RECORDS SUMMARY | 2024-09-11 11:31 | XMS_ITS | Encounter Summary ---
Author Organization [facility] Address [address] [place] [address] Care Team Providers Care Tinning Machine Set Up Operator Name Role Phone Caitlyn Bowie MD Primary Care Provider +1- [phone] Reason for Visit * Reason Comments FYI Encounter Details Date Type Department Care Team (Late st Contact Info) Description 05/24/2021 Telephone [facility] at [address] [place] [address] [address] [place], [place] [id number] Solo Henry MD [address] [place] [address] FYI Social History Tobacco Use Types [...] Description 09/30/2024 8:30 PM EDT Procedure visit [facility] [address] [place] [address] [address] [place] [address] 10/31/2024 1:00 PM EDT Telemedicine Cancer [facility] at [facility] 240 [facility] [address] [place] [address] Ronald Mills MD 240 [facility] Max [address]1 [place] [address] documented as of this encounter Visit Diagnoses Not on filedocumented in this encounter Additional Health Concerns Infection Onset Date Last Indicated Resolved Time COVID-19 03/05/2022 03/05/2022 03/15/2022 7:18 PM EDT Assessment Noted Time PHQ-9 Depression Total Score: 2 11/07/19 19 2:06 PM EDT documented as of this encounter Care Teams Tinning Machine Set Up Operator Relationship Specialty Start Date End Date Caitlyn Bowie MD 3400 [facility] 1 [place] [address] PCP - General Internal Medicine 05/06/21 documented as of this encounter
--- OUTSIDE RECORDS SUMMARY | 2024-09-11 11:31 | XMS_ITS | Encounter Summary ---
Author Organization [facility] Address [address] [place] [address] Care Team Providers Care Clinical Business Manager Name Role Phone Caitlyn Bowie MD Primary Care Provider +1- [phone] Encounter Details Date Type Department Care Team (Late st Contact Info) Description 09/15/2020 Scanned Document INTERFACE DEFAULT [address] [place] [address] System, Provider Not In Social History Tobacco [...] EDT Procedure visit [facility] [address] [place] [address] [address] [place] [address] 10/31/2024 1:00 PM EDT Telemedicine Cancer Center at [facility] 240 [facility] [address] [place] [address] Ronald Mills MD 240 [facility] A1 [place] [address] documented as of this encounter Visit Diagnoses Not on filedocumented in this encounter Additional Health Concerns Infection Onset Date Last Indicated Resolved Time COVID-19 03/05/2022 03/05/2022 03/15/2022 7:18 PM EDT Assessment Noted Time PHQ-9 Depression Total Score: 2 11/07/19 19 2:06 PM EDT documented as of this encounter Care Teams Clinical Business Manager Relationship Specialty Start Date End Date Caitlyn Bowie MD [address] [address] PCP - General Internal Medicine 05/06/21 documented as of this encounter
--- OUTSIDE RECORDS SUMMARY | 2024-09-11 11:31 | XMS_ITS | Encounter Summary ---
Author Organization [facility] Address [address] [place] [address] Care Team Providers Care Professional Healthcare Representative Name Role Phone Caitlyn Bowie MD Primary Care Provider +1- [phone] Encounter Details Date Type Department Care Team (Late st Contact Info) Description 09/15/2020 Scanned Document [facility] Health Information Management [address] [place] [address] External, Provider Social History Tobacco Use Types [...] Description 09/30/2024 8:30 PM EDT Procedure visit [facility] [address] [place] [address] [address] [place] [address] 10/31/2024 1:00 PM EDT Telemedicine [facility] at [facility] 240 [facility] [address] [place] [address] Ronald Mills MD 240 [facility] A1 [place] [address] documented as of this [...] documented as of this encounter Care Teams Professional Healthcare Representative Relationship Specialty Start Date End Date Catilyn Bowie MD [address] [address] PCP - General Internal Medicine 05/06/21 documented as of this encounter
--- OUTSIDE RECORDS SUMMARY | 2024-09-11 11:31 | XMS_ITS | Encounter Summary ---
Author Organization [facility] Address [address] [place] [address] Care Team Providers Care Gas System Operator Name Role Phone Caitlyn Bowie MD Primary Care Provider +1- [phone] Encounter Details Date Type Department Care Team (Late st Contact Info) Description 06/07/2021 Scanned Document [facility]Oncology Program at [address] [address] Norma Renee MD [address] [place] [address] 2 [place] [phone] Social History Tobacco Use Types Packs/Day Years [...] Description 09/30/2024 8:30 PM EDT Procedure visit [facility] [address] [place] [address] 10/31/2024 1:00 PM EDT Telemedicine Cancer Center at [address] [place], [place] [address] Ronald Mills MD 240 [facility] A1 [place] [address] documented as of this encounter Visit Diagnoses Not on filedocumented in this encounter Additional Health Concerns Infection Onset Date Last Indicated Resolved Time COVID-19 03/05/2022 03/05/2022 03/15/2022 7:18 PM EDT Assessment Noted Time PHQ-9 Depression Total Score: 2 11/07/19 19 2:06 PM EDT documented as of this encounter Care Teams Gas System Operator Relationship Specialty Start Date End Date Caitlyn Bowie MD [address] [address] PCP - General Internal Medicine 05/06/21 documented as of this encounter
--- OUTSIDE RECORDS SUMMARY | 2024-09-11 11:31 | XMS_ITS | Encounter Summary ---
Author Organization [facility] and [facility] Address [address] [place] [address] Care Team Providers Care Geological Science Teacher Name Role Phone Caitlyn Bowie MD Primary Care Provider +1- [phone] Encounter Details Date Type Department Care Team (Late st Contact Info) Description 12/19/2016 Scanned Document [facility] Health Information Management [address] [place] [address] External, Provider Social History Tobacco Use Types [...] Description 09/30/2024 8:30 PM EDT Procedure visit [facility] [address] [place] [address] [address] [place] [address] 10/31/2024 1:00 PM EDT Telemedicine Cancer Center at [facility] 240 [facility] Building [address] [place], [place] [address] Ronald Mills MD 240 [facility] A1 [place] [address] documented as of this encounter Procedures Procedure [...] as of this encounter Care Teams Geological Science Teacher Relationship Specialty Start Date End Date Caitlyn Bowie MD 34[address] [facility] Max 1 [place] [address] PCP - General Internal Medicine 05/06/21 Henry Kelly MD Pulmonary Department 175 [facility], [address] [place] [address] Physician Pulmonary Disease 09/06/17 06/22/20 documented as of this encounter
--- OUTSIDE RECORDS SUMMARY | 2024-09-11 11:31 | XMS_ITS | Encounter Summary ---
Author Organization [facility] Address [address] [place] [address] Care Team Providers Care Plastic Mould Maker Name Role Phone Caitlyn Bowie MD Primary Care Provider +1- [phone] Encounter Details Date Type Department Care Team (Late st Contact Info) Description 12/16/2016 Scanned Document [facility] Health Information Management [address] [place] [address] External, Provider Social History Tobacco Use Types [...] Description 09/30/2024 8:30 PM EDT Procedure visit [facility] [address] [place] [address] [address] [place] [address] 10/31/2024 1:00 PM EDT Telemedicine [facility] at [facility] [address] [facility] Building [address] [place], [place] [address] Ronald Mills MD 240 [facility] A1 [place] [address] documented as of this encounter Procedures Procedure [...] documented as of this encounter Care Teams Plastic Mould Maker Relationship Specialty Start Date End Date Caitlyn Bowie MD 3400 [facility] 1 [place] [address] PCP - General Internal Medicine 05/06/21 Henry Kelly MD Pulmonary Department 175 [facility], [address] [place] [address] Physician Pulmonary Disease 09/06/17 06/22/20 documented as of this encounter
--- OUTSIDE RECORDS SUMMARY | 2024-09-11 11:31 | XMS_ITS | Encounter Summary ---
Author Organization [facility] Address [address] [place] [address] Care Team Providers Care Pcat Instructor Name Role Phone Caitlyn Bowie MD Primary Care Provider +1- [phone] Encounter Details Date Type Department Care Team (Late st Contact Info) Description 09/09/2020 Scanned Document [facility] Health Information Management [address] [place] [address] External, Provider Social History Tobacco Use Types [...] Description 09/30/2024 8:30 PM EDT Procedure visit [facility] [address] [place] [address] [address] [place] [address] 10/31/2024 1:00 PM EDT Telemedicine Cancer [facility] at [facility] 240 [facility] [address] [place] [address] Ronald Mills MD 240 [facility] A1 [place] [address] documented as of this encounter [...] documented as of this encounter Care Teams Pcat Instructor Relationship Specialty Start Date End Date Caitlyn Bowie MD [address] [address] PCP - General Internal Medicine 05/06/21 documented as of this encounter
--- OUTSIDE RECORDS SUMMARY | 2024-09-11 11:31 | XMS_ITS | Encounter Summary ---
Author Organization [facility] and [facility] Address [address] [place] [address] Care Team Providers Care Section Leader And Machine Setter Name Role Phone Caitlyn Bowie MD Primary Care Provider +1- [phone] Encounter Details Date Type Department Care Team (Late st Contact Info) Description 04/28/2021 Scanned Document INTERFACE DEFAULT [address] [place] [address] System, Provider Not In Social History Tobacco [...] Description 09/30/2024 8:30 PM EDT Procedure visit [facility] [address] [place] [address] [address] [place] [address] 10/31/2024 1:00 PM EDT Telemedicine Cancer Center at [facility] 240 [facility] Building [address] [place] [address] Ronald Mills MD [address] [facility] A1 [place] [address] documented as of this encounter Procedures Procedure [...] documented as of this encounter Care Teams Section Leader And Machine Setter Relationship Specialty Start Date End Date Caitlyn Bowie MD [facility] [address] [address] PCP - General Internal Medicine 05/06/21 documented as of this encounter
--- OUTSIDE RECORDS SUMMARY | 2024-09-11 11:31 | XMS_ITS | Encounter Summary ---
Author Organization [facility] Address [address] [place] [address] Care Team Providers Care Newspaper Subscription Solicitor Name Role Phone Caitlyn Bowie MD Primary Care Provider +1- [phone] Encounter Details Date Type Department Care Team (Late st Contact Info) Description 09/18/2020 Scanned Document [facility] Health Information Management [address] [place] [address] External, Provider Social History Tobacco Use Types [...] Description 09/30/2024 8:30 PM EDT Procedure visit [facility] [address] [place] [address] [address] [place] [address] 10/31/2024 1:00 PM EDT Telemedicine Cancer Center at [facility] 240 [facility] [address] [place] [address] Ronald Mills MD 240 [facility] A1 [place] [address] documented as of [...] documented as of this encounter Care Teams Newspaper Subscription Solicitor Relationship Specialty Start Date End Date Caitlyn Bowie MD [address] [address] PCP - General Internal Medicine 05/06/21 documented as of this encounter
--- OUTSIDE RECORDS SUMMARY | 2024-09-11 11:31 | XMS_ITS | Encounter Summary ---
Author Organization [facility] and [facility] Address [address] [place] [address] Care Team Providers Care Salesperson Wigs Name Role Phone Caitlyn Bowie MD Primary Care Provider +1- [phone] Encounter Details Date Type Department Care Team (Late st Contact Info) Description 07/26/2018 Scanned Document [facility] Health Information Management [address] [place] [address] External, Provider Social History Tobacco Use Types [...] Description 09/30/2024 8:30 PM EDT Procedure visit [facility] [address] [place] [address] [address] [place] [address] 10/31/2024 1:00 PM EDT Telemedicine [facility] at [facility] 240 [facility] Building [address] [place], [place] [address] Ronald Mills MD 240 [facility] A1 [place] [address] documented as of this encounter [...] as of this encounter Care Teams Salesperson Wigs Relationship Specialty Start Date End Date Caitlyn Bowie MD 3400 [facility] 1 [place] [address] PCP - General Internal Medicine 05/06/21 Henry Kelly MD Pulmonary Department 175 [facility], [address] [place] [address] Physician Pulmonary Disease 09/06/17 06/22/20 documented as of this encounter
--- OUTSIDE RECORDS SUMMARY | 2024-09-11 11:31 | XMS_ITS | Encounter Summary ---
Author Organization [facility] and [facility] Address [address] [place] [address] Care Team Providers Care Fur Mixer Operator Name Role Phone Caitlyn Bowie MD Primary Care Provider +1- [phone] Encounter Details Date Type Department Care Team (Late st Contact Info) Description 06/07/2021 Scanned Document Cancer Center at [address] [address] External, Provider Social History Tobacco Use Types [...] Description 09/30/2024 8:30 PM EDT Procedure visit [facility] [address] [place] [address] [place] [address] 10/31/2024 1:00 PM EDT Telemedicine Cancer Center at [address] [place], [place] [address] Ronald Mills MD [address] [address] documented as of this encounter Visit Diagnoses Not on filedocumented in this encounter Additional Health Concerns Infection Onset Date Last Indicated Resolved Time COVID-19 03/05/2022 03/05/2022 03/15/2022 7:18 PM EDT Assessment Noted Time PHQ-9 Depression Total Score: 2 11/07/19 19 2:06 PM EDT documented as of this encounter Care Teams Fur Mixer Operator Relationship Specialty Start Date End Date Caitlyn Bowie MD [address] [address] PCP - General Internal Medicine 05/06/21 documented as of this encounter
--- OUTSIDE RECORDS SUMMARY | 2024-09-11 11:31 | XMS_ITS | Encounter Summary ---
Author Organization [facility] Address [address] [place] [address] Care Team Providers Care Weapons System Instrument Mechanic Name Role Phone Caitlyn Bowie MD Primary Care Provider +1- [phone] Encounter Details Date Type Department Care Team (Late st Contact Info) Description 04/29/2021 Scanned Document INTERFACE DEFAULT [address] [place] [address] System, Provider Not In Social History Tobacco [...] Description 09/30/2024 8:30 PM EDT Procedure visit [facility] [address] [place] [address] [address] [place] [address] 10/31/2024 1:00 PM EDT Telemedicine Cancer Center at [facility] [address] [facility] Building [address] [place] [address] Ronald Mills MD 240 [facility] A1 [place] [address] documented as of this encounter Procedures Procedure [...] documented as of this encounter Care Teams Weapons System Instrument Mechanic Relationship Specialty Start Date End Date Caitlyn Bowie MD [address] [address] PCP - General Internal Medicine 05/06/21 documented as of this encounter
--- OUTSIDE RECORDS SUMMARY | 2024-09-11 11:31 | XMS_ITS | Encounter Summary ---
Author Organization [facility] Address [address] [place] [address] Care Team Providers Care Elastic Attacher Chainstitch Name Role Phone Caitlyn Bowie MD Primary Care Provider +1- [phone] Encounter Details Date Type Department Care Team (Late st Contact Info) Description 05/17/2021 Scanned Document Cancer Center at [address] [address] External, Provider Social History Tobacco Use Types [...] Description 09/30/2024 8:30 PM EDT Procedure visit [facility] [address] [place] [address] [place] [address] 10/31/2024 1:00 PM EDT Telemedicine Cancer Center at [address] [place], [place] [address] Ronald Mills MD [address] [address] documented as of this encounter [...] as of this encounter Care Teams Elastic Attacher Chainstitch Relationship Specialty Start Date End Date Caitlyn Bowie MD [address] [address] PCP - General Internal Medicine 05/06/21 documented as of this encounter
--- OUTSIDE RECORDS SUMMARY | 2024-09-11 11:31 | XMS_ITS | Encounter Summary ---
Author Organization [facility] and [facility] Address [address] [place] [address] Care Team Providers Care Toilet Attendant Name Role Phone Caitlyn Bowie MD Primary Care Provider +1- [phone] Encounter Details Date Type Department Care Team (Late st Contact Info) Description 09/16/2020 Scanned Document [facility] Health Information Management [address] [place] [address] External, Provider Social History Tobacco Use Types [...] Description 09/30/2024 8:30 PM EDT Procedure visit [facility] [address] [place] [address] [address] [place] [address] 10/31/2024 1:00 PM EDT Telemedicine Cancer Center at [facility] 240 [facility] [address] [place] [address] Ronald Mills MD 240 [facility] A1 [place] [address] documented as of this encounter [...] documented as of this encounter Care Teams Toilet Attendant Relationship Specialty Start Date End Date Caitlyn Bowie MD [address] [address] PCP - General Internal Medicine 05/06/21 documented as of this encounter
--- OUTSIDE RECORDS SUMMARY | 2024-09-11 11:31 | XMS_ITS | Encounter Summary ---
Author Organization [facility] Address [address] [place] [address] Care Team Providers Care Chili Pepper Grinder Name Role Phone Caitlyn Bowie MD Primary Care Provider +1- [phone] Encounter Details Date Type Department Care Team (Late st Contact Info) Description 06/08/2021 Scanned Document INTERFACE DEFAULT [address] [place] [address] System, Provider Not In Social History Tobacco [...] Description 09/30/2024 8:30 PM EDT Procedure visit [facility] [address] [place] [address] [address] [place] [address] 10/31/2024 1:00 PM EDT Telemedicine Cancer [facility] at [facility] [address] [facility] [address] [place] [address] Ronald Mills MD 240 [facility] [address]1 [place] [address] documented as of this encounter Procedures Procedure [...] documented as of this encounter Care Teams Chili Pepper Grinder Relationship Specialty Start Date End Date Caitlyn Bowie MD [address] [address] PCP - General Internal Medicine 05/06/21 documented as of this encounter
--- OUTSIDE RECORDS SUMMARY | 2024-09-11 11:32 | XMS_ITS | Encounter Summary ---
Author Organization [facility] Address [address] [place] [address] Care Team Providers Care Certified Tumor Registrar Name Role Phone Caitlyn Bowie MD Primary Care Provider +1- [phone] Encounter Details Date Type Department Care Team (Late st Contact Info) Description 11/26/2019 Scanned Document Cancer Center at [address] [address] External, Provider Social History Tobacco Use Types [...] Description 09/30/2024 8:30 PM EDT Procedure visit [facility] [address] [place] [address] [address] [place] [address] 10/31/2024 1:00 PM EDT Telemedicine Cancer Center at [address] [place] [address] Ronald Mills MD [address] [address] documented as of this encounter [...] as of this encounter Care Teams Certified Tumor Registrar Relationship Specialty Start Date End Date Caitlyn Bowie MD 3400 [facility] [address] 1 [place] [address] PCP - General Internal Medicine 05/06/21 Henry Kelly MD Pulmonary Department [address] [place] [address], [address] [place] [address] Physician Pulmonary Disease 09/06/17 06/22/20 documented as of this encounter
--- OUTSIDE RECORDS SUMMARY | 2024-09-11 11:32 | XMS_ITS | Encounter Summary ---
Author Organization [facility] and [facility] Address [address] [place] [address] Care Team Providers Care Clinical Appeals Rn Name Role Phone Caitlyn Bowie MD Primary Care Provider +1- [phone] Encounter Details Date Type Department Care Team (Late st Contact Info) Description 07/06/2021 Scanned Document INTERFACE DEFAULT [address] [place] [address] System, Provider Not In Social History Tobacco [...] Description 09/30/2024 8:30 PM EDT Procedure visit [facility] [address] [place] [address] [address] [place] [address] 10/31/2024 1:00 PM EDT Telemedicine Cancer [facility] at [facility] [address] [facility] [address] [place] [address] Ronald Mills MD 240 [facility] A1 [place] [address] documented as of this encounter Visit Diagnoses Not on filedocumented in this encounter Additional Health Concerns Infection Onset Date Last Indicated Resolved Time COVID-19 03/05/2022 03/05/2022 03/15/2022 7:18 PM EDT Assessment Noted Time PHQ-9 Depression Total Score: 2 11/07/19 19 2:06 PM EDT documented as of this encounter Care Teams Clinical Appeals Rn Relationship Specialty Start Date End Date Caitlyn Bowie MD [address] [address] PCP - General Internal Medicine 05/06/21 documented as of this encounter
--- OUTSIDE RECORDS SUMMARY | 2024-09-11 11:32 | XMS_ITS | Encounter Summary ---
Author Organization [facility] Address [address] [place] [address] Care Team Providers Care Print Binding And Finishing Worker Name Role Phone Caitlyn Bowie MD Primary Care Provider +1- [phone] Encounter Details Date Type Department Care Team (Late st Contact Info) Description 08/16/2012 Abstract [facility] Health Information Management [address] [place] [address] [place], Primary Care [address] [place] [address] Social History Tobacco Use Types Packs/Day Years [...] Description 09/30/2024 8:30 PM EDT Procedure visit [facility] [address] [place] [phone] 10/31/2024 1:00 PM EDT Telemedicine Cancer Center at [facility] [place] [address] [facility] Building [address] [place] [address] Ronald Mills MD 240 [facility] [address] [place] [address] documented as of this encounter Visit Diagnoses Not on filedocumented in this encounter Additional Health Concerns Infection Onset Date Last Indicated Resolved Time COVID-19 03/05/2022 03/05/2022 03/15/2022 7:18 PM EDT documented as of this encounter Care Teams Print Binding And Finishing Worker Relationship Specialty Start Date End Date Caitlyn Bowie MD 3400 [facility] 1 [place] [address] PCP - General Internal Medicine 05/06/21 Henry Kelly MD Pulmonary Department [address] [facility], [address] [place] [address] Physician Pulmonary Disease 09/06/17 06/22/20 documented as of this encounter
--- OUTSIDE RECORDS SUMMARY | 2024-09-11 11:32 | XMS_ITS | Encounter Summary ---
Author Organization [facility] and [facility] Address [address] [place] [address] Care Team Providers Care Local Company Hazmat Driver Name Role Phone Caitlyn Bowie MD Primary Care Provider +1- [phone] Encounter Details Date Type Department Care Team (Late st Contact Info) Description 12/03/2019 Scanned Document [facility] Health Information Management [address] [place] [address] External, Provider Social History Tobacco Use Types [...] Description 09/30/2024 8:30 PM EDT Procedure visit [facility] [address] [place] [address] [address] [place] [address] 10/31/2024 1:00 PM EDT Telemedicine Cancer Center at [facility] 240 [facility] [address] [place] [address] Ronald Mills MD 240 [facility] A1 [place] [address] documented as of this encounter Visit Diagnoses [...] End Date Caitlyn Bowie MD [address] [facility] 1 [place] [address] PCP - General Internal Medicine 05/06/21 Henry Kelly MD Pulmonary Department [address] [place] [address], [address] [place] [address] Physician Pulmonary Disease 09/06/17 06/22/20 documented as of this encounter
--- OUTSIDE RECORDS SUMMARY | 2024-09-11 11:32 | XMS_ITS | Encounter Summary ---
Author Organization [facility] and [facility] Address [address] [place] [address] Care Team Providers Care Dish Person Name Role Phone Caitlyn Bowie MD Primary Care Provider +1- [phone] Encounter Details Date Type Department Care Team (Late st Contact Info) Description 07/01/2019 Scanned Document Onco-Oncology Program at [address] [place] [address] Norma Renee MD [address] [place] [address] 2 [place] [phone] Social History Tobacco Use Types Packs/Day Years [...] Description 09/30/2024 8:30 PM EDT Procedure visit [facility] [address] [place] [address] 10/31/2024 1:00 PM EDT Telemedicine Cancer Center at [address] [place], [place] [address] Ronald Mills MD 240 [facility] [address] [place] [address] documented as of this encounter Visit Diagnoses Not on filedocumented in this encounter Additional Health Concerns Infection Onset Date Last Indicated Resolved Time COVID-19 03/05/2022 03/05/2022 03/15/2022 7:18 PM EDT Assessment Noted Time PHQ-9 Depression Total Score: 2 11/07/19 19 2:06 PM EDT documented as of this encounter Care Teams Dish Person Relationship Specialty Start Date End Date Caitlyn Bowie MD 3400 [facility] 1 [place] [address] PCP - General Internal Medicine 05/06/21 Henry Kelly MD Pulmonary Department [address] [place] [address], [address] [place] [address] Physician Pulmonary Disease 09/06/17 06/22/20 documented as of this encounter
--- OUTSIDE RECORDS SUMMARY | 2024-09-11 11:32 | XMS_ITS | Encounter Summary ---
Author Organization [facility] Address [address] [place] [address] Care Team Providers Care Weaver Tire Cord Name Role Phone Caitlyn Bowie MD Primary Care Provider +1- [phone] Encounter Details Date Type Department Care Team (Late st Contact Info) Description 01/28/2013 Scanned Document Thoracic Oncology Program at [address] [address] Solo Henry MD [address] [place] [address] Social History Tobacco Use Types Packs/Day [...] Description 09/30/2024 8:30 PM EDT Procedure visit [facility] [address] [place] [address] [place] [address] 10/31/2024 1:00 PM EDT Telemedicine Cancer Center at [address] [place] [address] Ronald Mills MD [address] [place] [address] [address] documented as of this encounter Visit Diagnoses Not on filedocumented in this encounter Additional Health Concerns Infection Onset Date Last Indicated Resolved Time COVID-19 03/05/2022 03/05/2022 03/15/2022 7:18 PM EDT documented as of this encounter Care Teams Weaver Tire Cord Relationship Specialty Start Date End Date Caitlyn Bowie MD 3400 [facility] 1 [place] [address] PCP - General Internal Medicine 05/06/21 Henry Kelly MD Pulmonary Department 175 [facility], [address] [place] [address] Physician Pulmonary Disease 09/06/17 06/22/20 documented as of this encounter
--- OUTSIDE RECORDS SUMMARY | 2024-09-11 11:32 | XMS_ITS | Encounter Summary ---
Author Organization [facility] and [facility] Address [address] [place] [address] Care Team Providers Care Performance Test Architect Name Role Phone Caitlyn Bowie MD Primary Care Provider +1- [phone] Encounter Details Date Type Department Care Team (Late st Contact Info) Description 11/29/2019 Scanned Document [facility] Health Information Management [address] [place] [address] External, Provider Social History Tobacco Use Types [...] Description 09/30/2024 8:30 PM EDT Procedure visit [facility] [address] [place] [address] [address] [place] [address] 10/31/2024 1:00 PM EDT Telemedicine Cancer Center at [facility] [address] [facility] [address] [place] [address] Ronald Mills MD 240 [facility] A1 [place] [address] documented as of this encounter Procedures Procedure [...] documented as of this encounter Care Teams Performance Test Architect Relationship Specialty Start Date End Date Caitlyn Bowie MD 3400 [facility] 1 [place] [address] PCP - General Internal Medicine 05/06/21 Henry Kelly MD Pulmonary Department 175 [facility], [address] [place] [address] Physician Pulmonary Disease 09/06/17 06/22/20 documented as of this encounter
--- OUTSIDE RECORDS SUMMARY | 2024-09-11 11:32 | XMS_ITS | Encounter Summary ---
Author Organization [facility] and [facility] Address [address] [place] [address] Care Team Providers Care Strike Operations Officer Name Role Phone Caitlyn Bowie MD Primary Care Provider +1- [phone] Encounter Details Date Type Department Care Team (Late st Contact Info) Description 10/24/2022 Scanned Document INTERFACE DEFAULT [address] [place] [address] System, Provider Not In Social History Tobacco [...] Description 09/30/2024 8:30 PM EDT Procedure visit [facility] [address] [place] [address] [address] [place] [address] 10/31/2024 1:00 PM EDT Telemedicine Cancer Center at [facility] 240 [facility] [address] [place] [address] Ronald Mills MD 240 [facility] A1 [place] [address] documented as of this encounter Procedures Procedure [...] documented as of this encounter Care Teams Strike Operations Officer Relationship Specialty Start Date End Date Caitlyn Bowie MD [address] [address] PCP - General Internal Medicine 05/06/21 documented as of this encounter
--- OUTSIDE RECORDS SUMMARY | 2024-09-11 11:32 | XMS_ITS | Encounter Summary ---
Author Organization [facility] and [facility] Address [address] [place] [address] Care Team Providers Care Exchange Administrator Name Role Phone Caitlyn Bowie MD Primary Care Provider +1- [phone] Encounter Details Date Type Department Care Team (Late st Contact Info) Description 07/28/2022 Scanned Document Onco-Oncology Program at [address] [address] Norma Renee MD [address] [place] [address] 2 [place] [address] Social History Tobacco Use Types Packs/Day Years [...] Description 09/30/2024 8:30 PM EDT Procedure visit [facility] [address] [place] [address] 10/31/2024 1:00 PM EDT Telemedicine Cancer Center at [address] [place] [address] Ronald Mills MD [address] [place] [address] documented as of this encounter Visit Diagnoses Not on filedocumented in this encounter Additional Health Concerns Assessment Noted Time PHQ-9 Depression Total Score: 2 11/07/19 19 2:06 PM EDT documented as of this encounter Care Teams Exchange Administrator Relationship Specialty Start Date End Date Caitlyn Bowie MD [address] [address] PCP - General Internal Medicine 05/06/21 documented as of this encounter
--- OUTSIDE RECORDS SUMMARY | 2024-09-11 11:32 | XMS_ITS | Encounter Summary ---
Author Organization [facility] Address [address] [place] [address] Care Team Providers Care Data Security Analyst Name Role Phone Caitlyn Bowie MD Primary Care Provider +1- [phone] Encounter Details Date Type Department Care Team (Late st Contact Info) Description 09/07/2021 Scanned Document INTERFACE DEFAULT [address] [place] [address] System, Provider Not In Social History Tobacco [...] Description 09/30/2024 8:30 PM EDT Procedure visit [facility] [address] [place] [address] [address] [place] [address] 10/31/2024 1:00 PM EDT Telemedicine Cancer Center at [facility] 240 [facility] [address] [place] [address] Ronald Mills MD 240 [facility] A1 [place] [address] documented as of this encounter Procedures Procedure [...] as of this encounter Care Teams Data Security Analyst Relationship Specialty Start Date End Date Caitlyn Bowie MD [facility] [address] [address] PCP - General Internal Medicine 05/06/21 documented as of this encounter
--- OUTSIDE RECORDS SUMMARY | 2024-09-11 11:32 | XMS_ITS | Encounter Summary ---
Author Organization [facility] Address [address] [place] [address] Care Team Providers Care Environmental Compliance Engineer Name Role Phone Caitlyn Bowie MD Primary Care Provider +1- [phone] Encounter Details Date Type Department Care Team (Late st Contact Info) Description 04/25/2021 Scanned Document INTERFACE DEFAULT [address] [place] [address] System, Provider Not In Social History Tobacco [...] Description 09/30/2024 8:30 PM EDT Procedure visit [facility] [address] [place] [address] [address] [place] [address] 10/31/2024 1:00 PM EDT Telemedicine Cancer [facility] at [facility] 240 [facility] Building [address] [place] [address] Ronald Mills MD 240 [facility] A1 [place] [address] documented as of this encounter [...] as of this encounter Care Teams Environmental Compliance Engineer Relationship Specialty Start Date End Date Caitlyn Bowie MD [facility] [address] [address] PCP - General Internal Medicine 05/06/21 documented as of this encounter
--- OUTSIDE RECORDS SUMMARY | 2024-09-11 11:32 | XMS_ITS | Encounter Summary ---
Author Organization [facility] Address [address] [place] [address] Care Team Providers Care Oil Heater Installer Name Role Phone Caitlyn Bowie MD Primary Care Provider +1- [phone] Encounter Details Date Type Department Care Team (Late st Contact Info) Description 09/02/2021 Scanned Document INTERFACE DEFAULT [address] [place] [address] System, Provider Not In Social History Tobacco [...] EDT Procedure visit [facility] [address] [place] [address] [address] [place] [address] 10/31/2024 1:00 PM EDT Telemedicine Cancer Center at [facility] [address] [facility] [address] [place] [address] Ronald Mills MD 240 [facility] A1 [place] [address] documented as of this encounter Procedures Procedure [...] as of this encounter Care Teams Oil Heater Installer Relationship Specialty Start Date End Date Caitlyn Bowie MD [facility] [address] [address] PCP - General Internal Medicine 05/06/21 documented as of this encounter
--- OUTSIDE RECORDS SUMMARY | 2024-09-11 11:32 | XMS_ITS | Encounter Summary ---
Author Organization [facility] Address [address] [place] [address] Care Team Providers Care Design Verification Engineer Name Role Phone Caitlyn Bowie MD Primary Care Provider +1- [phone] Encounter Details Date Type Department Care Team (Late st Contact Info) Description 09/10/2021 Scanned Document Cardiovascular Medicine at [address] [address] Norma Renee MD [address] [place] [phone] Social History Tobacco Use Types Packs/Day Years [...] Description 09/30/2024 8:30 PM EDT Procedure visit [facility] [address] [place] [address] [address] [place] [address] 10/31/2024 1:00 PM EDT Telemedicine Cancer Center at [address] [place], [place] [address] Ronald Mills MD 240 [facility] Max [address] [place] [address] documented as of this encounter Visit Diagnoses Not on filedocumented in this encounter Additional Health Concerns Infection Onset Date Last Indicated Resolved Time COVID-19 03/05/2022 03/05/2022 03/15/2022 7:18 PM EDT Assessment Noted Time PHQ-9 Depression Total Score: 2 11/07/19 19 2:06 PM EDT documented as of this encounter Care Teams Design Verification Engineer Relationship Specialty Start Date End Date Caitlyn Bowie MD [address] [address] PCP - General Internal Medicine 05/06/21 documented as of this encounter
--- OUTSIDE RECORDS SUMMARY | 2024-09-11 11:32 | XMS_ITS | Encounter Summary ---
Author Organization [facility] Address [address] [place] [address] Care Team Providers Care Photogrammetric Compilation Specialist Name Role Phone Caitlyn Bowie MD Primary Care Provider +1- [phone] Encounter Details Date Type Department Care Team (Late st Contact Info) Description 01/28/2013 Scanned Document Thoracic Oncology Program at [address] [address] Solo Henry MD [address] [phone] Social History Tobacco Use Types Packs/Day [...] Description 09/30/2024 8:30 PM EDT Procedure visit [facility] [address] [place] [address] [place] [address] 10/31/2024 1:00 PM EDT Telemedicine Cancer Center at [address] [place] [address] Ronald Mills MD [address] [place] [address] [phone] documented as of this encounter Visit Diagnoses Not on filedocumented in this encounter Additional Health Concerns Infection Onset Date Last Indicated Resolved Time COVID-19 03/05/2022 03/05/2022 03/15/2022 7:18 PM EDT documented as of this encounter Care Teams Photogrammetric Compilation Specialist Relationship Specialty Start Date End Date Caitlyn Bowie MD 3400 [facility] 1 [place] [address] PCP - General Internal Medicine 05/06/21 Henry Kelly MD Pulmonary Department 175 [facility], [address] [place] [address] Physician Pulmonary Disease 09/06/17 06/22/20 documented as of this encounter
--- OUTSIDE RECORDS SUMMARY | 2024-09-11 11:32 | XMS_ITS | Encounter Summary ---
Author Organization [facility] Address [address] [place] [address] Care Team Providers Care Distribution Analyst Name Role Phone Caitlyn Bowei MD Primary Care Provider +1- [phone] Encounter Details Date Type Department Care Team (Late st Contact Info) Description 04/18/2013 Documentation Hematology Program at [address] [address] Isis Ragland RN Social History Tobacco Use [...] Description 09/30/2024 8:30 PM EDT Procedure visit [facility] [address] [place] [address] [address] [place] [address] 10/31/2024 1:00 PM EDT Telemedicine Cancer Center at [address] [place], [place] [address] Ronald Mills MD [address] [place] [address] documented as of this encounter Visit Diagnoses Not on filedocumented in this encounter Additional Health Concerns Infection Onset Date Last Indicated Resolved Time COVID-19 03/05/2022 03/05/2022 03/15/2022 7:18 PM EDT documented as of this encounter Care Teams Distribution Analyst Relationship Specialty Start Date End Date Caitlyn Bowie MD 3400 [facility] Max 1 [place] [address] PCP - General Internal Medicine 05/06/21 Henry Kelly MD Pulmonary Department 175 [facility], [address] [place] [address] Physician Pulmonary Disease 09/06/17 06/22/20 documented as of this encounter
--- OUTSIDE RECORDS SUMMARY | 2024-09-11 11:32 | XMS_ITS | Encounter Summary ---
Author Organization [facility] Address [address] [place] [address] Care Team Providers Care Hyperion Analyst Name Role Phone Caitlyn Bowie MD Primary Care Provider +1- [phone] Encounter Details Date Type Department Care Team (Late st Contact Info) Description 06/27/2019 Scanned Document Onco-Oncology Program at [address] [place] [address] Norma Renee MD [address] [place] [address] 2 [place] [phone] Social History Tobacco Use Types Packs/Day Years [...] Description 09/30/2024 8:30 PM EDT Procedure visit [facility] [address] [place] [address] 10/31/2024 1:00 PM EDT Telemedicine Cancer Center at [address] [place], [place] [address] Ronald Mills MD 240 [facility] [address] [place] [address] documented as of this encounter Visit Diagnoses Not on filedocumented in this encounter Additional Health Concerns Infection Onset Date Last Indicated Resolved Time COVID-19 03/05/2022 03/05/2022 03/15/2022 7:18 PM EDT Assessment Noted Time PHQ-9 Depression Total Score: 2 11/07/19 19 2:06 PM EDT documented as of this encounter Care Teams Hyperion Analyst Relationship Specialty Start Date End Date Caitlyn Bowie MD 3400 [facility] 1 [place] [address] PCP - General Internal Medicine 05/06/21 Henry Kelly MD Pulmonary Department [address] [place] [address], [address] [place] [address] Physician Pulmonary Disease 09/06/17 06/22/20 documented as of this encounter
--- OUTSIDE RECORDS SUMMARY | 2024-09-11 11:32 | XMS_ITS | Encounter Summary ---
Author Organization [facility] Address [address] [place] [address] Care Team Providers Care Cylinder Press Operator Helper Name Role Phone Caitlyn Bowie MD Primary Care Provider +1- [phone] Encounter Details Date Type Department Care Team (Late st Contact Info) Description 12/23/2022 Scanned Document INTERFACE DEFAULT [address] [place] [address] System, Provider Not In Social History Tobacco [...] Description 09/30/2024 8:30 PM EDT Procedure visit [facility] [address] [place] [address] [address] [place] [address] 10/31/2024 1:00 PM EDT Telemedicine Cancer Center at [facility] 240 [facility] Building [address] [place] [address] Ronald Mills MD 240 [facility] A1 [place] [phone] documented as of this encounter Visit Diagnoses Not on filedocumented in this encounter Additional Health Concerns Assessment Noted Time PHQ-9 Depression Total Score: 2 11/07/19 19 2:06 PM EDT documented as of this encounter Care Teams Cylinder Press Operator Helper Relationship Specialty Start Date End Date Caitlyn Bowie MD [address] [address] PCP - General Internal Medicine 05/06/21 documented as of this encounter
--- OUTSIDE RECORDS SUMMARY | 2024-09-11 11:32 | XMS_ITS | Encounter Summary ---
Author Organization [facility] Address [address] [place] [address] Care Team Providers Care Lead Generation Specialist Name Role Phone Caitlyn Bowie MD Primary Care Provider +1- [phone] Encounter Details Date Type Department Care Team (Late st Contact Info) Description 07/07/2021 Scanned Document INTERFACE DEFAULT [address] [place] [phone] System, Provider Not In Social History Tobacco [...] Description 09/30/2024 8:30 PM EDT Procedure visit [facility] [address] [place] [address] [address] [place] [address] 10/31/2024 1:00 PM EDT Telemedicine Cancer Center at [facility] [address] [facility] [address] [place] [address] Ronald Mills MD 240 [facility] A1 [place] [address] documented as of this encounter Visit Diagnoses Not on filedocumented in this encounter Additional Health Concerns Infection Onset Date Last Indicated Resolved Time COVID-19 03/05/2022 03/05/2022 03/15/2022 7:18 PM EDT Assessment Noted Time PHQ-9 Depression Total Score: 2 11/07/19 19 2:06 PM EDT documented as of this encounter Care Teams Lead Generation Specialist Relationship Specialty Start Date End Date Caitlyn Bowie MD [address] [address] PCP - General Internal Medicine 05/06/21 documented as of this encounter
--- OUTSIDE RECORDS SUMMARY | 2024-09-11 11:32 | XMS_ITS | Encounter Summary ---
Author Organization [facility] Address [address] [place] [address] Care Team Providers Care Civil Design Technician Name Role Phone Caitlyn Bowie MD Primary Care Provider +1- [phone] Encounter Details Date Type Department Care Team (Late st Contact Info) Description 08/29/2019 Scanned Document Cancer Center at [address] [address] External, Provider Social History Tobacco Use Types [...] EDT Procedure visit [facility] [address] [place] [address] [address] [place] [address] 10/31/2024 1:00 PM EDT Telemedicine Cancer Center at [address] [place] [address] Ronald Mills MD [address] [address] documented as of this encounter [...] documented as of this encounter Care Teams Civil Design Technician Relationship Specialty Start Date End Date Caitlyn Bowie MD 3400 [facility] Max 1 [place] [address] PCP - General Internal Medicine 05/06/21 Henry Kelly MD Pulmonary Department [address] [place] [address], [address] [place] [address] Physician Pulmonary Disease 09/06/17 06/22/20 documented as of this encounter
--- OUTSIDE RECORDS SUMMARY | 2024-09-11 11:32 | XMS_ITS | Encounter Summary ---
Author Organization [facility] Address [address] [place] [address] Care Team Providers Care Janitorial Services Supervisor Name Role Phone Caitlyn Bowie MD Primary Care Provider +1- [phone] Encounter Details Date Type Department Care Team (Late st Contact Info) Description 08/23/2022 Abstract Cardiovascular Medicine at [address] [place] [address] Norma Renee MD [address] [place] [phone] Social History Tobacco Use Types Packs/Day Years [...] Description 09/30/2024 8:30 PM EDT Procedure visit [facility] [address] [place] [address] [address] [place] [address] 10/31/2024 1:00 PM EDT Telemedicine Cancer Center at [address] [facility] [place] [address]77 Ronald Mills MD [address] [place] [address] documented as of this encounter Visit Diagnoses Not on filedocumented in this encounter Additional Health Concerns Assessment Noted Time PHQ-9 Depression Total Score: 2 11/07/19 19 2:06 PM EDT documented as of this encounter Care Teams Janitorial Services Supervisor Relationship Specialty Start Date End Date Caitlyn Bowie MD 3400 [facility] 1 [place] [address] PCP - General Internal Medicine 05/06/21 documented as of this encounter
--- OUTSIDE RECORDS SUMMARY | 2024-09-11 11:32 | XMS_ITS | Encounter Summary ---
Author Organization [facility] Address [address] [place] [address] Care Team Providers Care Clinical Nursing Intern Name Role Phone Caitlyn Bowie MD Primary Care Provider +1- [phone] Encounter Details Date Type Department Care Team (Late st Contact Info) Description 07/12/2019 Scanned Document Onco-Oncology Program at [address] [place] [address] Norma Renee MD [address] [place] [address] 2 [place] [phone] Social History Tobacco Use Types Packs/Day Years [...] Description 09/30/2024 8:30 PM EDT Procedure visit [facility] [address] [place] [address] 10/31/2024 1:00 PM EDT Telemedicine Cancer Center at [address] [place], [place] [address] Ronald Mills MD 240 [facility] Max [address]1 [place] [address] documented as of this encounter Visit Diagnoses Not on filedocumented in this encounter Additional Health Concerns Infection Onset Date Last Indicated Resolved Time COVID-19 03/05/2022 03/05/2022 03/15/2022 7:18 PM EDT Assessment Noted Time PHQ-9 Depression Total Score: 2 11/07/19 19 2:06 PM EDT documented as of this encounter Care Teams Clinical Nursing Intern Relationship Specialty Start Date End Date Caitlyn Bowie MD 3400 [facility] 1 [place] [address] PCP - General Internal Medicine 05/06/21 Henry Kelly MD Pulmonary Department [address] [place] [address], [address] [place] [address] Physician Pulmonary Disease 09/06/17 06/22/20 documented as of this encounter
--- OUTSIDE RECORDS SUMMARY | 2024-09-11 11:32 | XMS_ITS | Encounter Summary ---
Author Organization [facility] and [facility] Address [address] [place] [address] Care Team Providers Care Automotive Engineer Name Role Phone Caitlyn Bowie MD Primary Care Provider +1- [phone] Encounter Details Date Type Department Care Team (Late st Contact Info) Description 06/27/2019 Scanned Document Onco-Oncology Program at [address] [place] [address] Norma Renee MD [address] [place] [address] 2 [place] [phone] Social History Tobacco Use Types Packs/Day Years [...] Description 09/30/2024 8:30 PM EDT Procedure visit [facility] [address] [place] [address] 10/31/2024 1:00 PM EDT Telemedicine Cancer Center at [address] [place], [place] [address] Ronald Mills MD 240 [facility] Max [address]1 [place] [address] documented as of this encounter Visit Diagnoses Not on filedocumented in this encounter Additional Health Concerns Infection Onset Date Last Indicated Resolved Time COVID-19 03/05/2022 03/05/2022 03/15/2022 7:18 PM EDT Assessment Noted Time PHQ-9 Depression Total Score: 2 11/07/19 19 2:06 PM EDT documented as of this encounter Care Teams Automotive Engineer Relationship Specialty Start Date End Date Caitlyn Bowie MD 3400 [facility] 1 [place] [address] PCP - General Internal Medicine 05/06/21 Henry Kelly MD Pulmonary Department [address] [place] [address], [address] [place] [address] Physician Pulmonary Disease 09/06/17 06/22/20 documented as of this encounter
--- OUTSIDE RECORDS SUMMARY | 2024-09-11 11:32 | XMS_ITS | Encounter Summary ---
Author Organization [facility] Address [address] [place] [address] Care Team Providers Care Eyeglass Frame Truer Name Role Phone Pcp, No Primary Care Provider Brennan Mario MD Primary Care Provider [phone] Caitlyn Bowie MD Primary Care Provider +1- [phone] Encounter Details Date Type Department Care Team (Late st Contact Info) Description 01/04/2022 Scanned Document [facility] Neurology Ophthalmology [address] [address] Yary Whitten DO [address] [place] [address] Social History Tobacco Use Types Packs/Day [...] on filedocumented in this encounter Care Teams Eyeglass Frame Truer Relationship Specialty Start Date End Date Pcp, No PCP - General General Medicine 10/04/21 07/18/22 Brennan Burnett MD [address] [place] [address] PCP - General 07/19/22 03/19/23 Caitlyn Bowie MD 3400 [place] [address] PCP - General Internal Medicine 03/20/23 documented as of this encounter
--- OUTSIDE RECORDS SUMMARY | 2024-09-11 11:32 | XMS_ITS | Encounter Summary ---
Author Organization [facility] Address [address] [place] [address] Care Team Providers Care Industrial Nurse Name Role Phone Caitlyn Bowie MD Primary Care Provider +1- [phone] Encounter Details Date Type Department Care Team (Late st Contact Info) Description 07/26/2012 Abstract [facility] Health Information Management [address] [place] [address] [place], Primary Care [address] [place] [phone] Social History Tobacco Use Types Packs/Day Years [...] Description 09/30/2024 8:30 PM EDT Procedure visit [facility] [address] [place] [address] 202 [place] [address] 10/31/2024 1:00 PM EDT Telemedicine Cancer Center at [facility] 240 [facility] Building [address] [place], [place] [address] Ronald Mills MD 240 [facility] Max [address] [place] [address] documented as of this encounter Visit Diagnoses Not on filedocumented in this encounter Additional Health Concerns Infection Onset Date Last Indicated Resolved Time COVID-19 03/05/2022 03/05/2022 03/15/2022 7:18 PM EDT documented as of this encounter Care Teams Industrial Nurse Relationship Specialty Start Date End Date Caitlyn Bowie MD 3400 [facility] 1 [place] [address] PCP - General Internal Medicine 05/06/21 Henry Kelly MD Pulmonary Department 175 [facility], [address] [place] [address] Physician Pulmonary Disease 09/06/17 06/22/20 documented as of this encounter
--- OUTSIDE RECORDS SUMMARY | 2024-09-11 11:32 | XMS_ITS | Encounter Summary ---
Author Organization [facility] Address [address] [place] [address] Care Team Providers Care Elementary Supervisor Name Role Phone Caitlyn Bowie MD Primary Care Provider +1- [phone] Reason for Visit * Reason Comments Advice Only mass Encounter Details Date Type Department Care Team (Late st Contact Info) Description 09/06/2021 Telephone [facility] Program at [address] [phone] Ronald Mills MD [address] [place] [address] Advice Only (mass) Social History Tobacco [...] Description 09/30/2024 8:30 PM EDT Procedure visit [facility] [address] [place] [address] [address] [place] [address] 10/31/2024 1:00 PM EDT Telemedicine Cancer Center at [address] [place], [place] [address] Ronald Mills MD 240 [facility] A1 [place] [address] documented as of this encounter Visit Diagnoses Not on filedocumented in this encounter Additional Health Concerns Infection Onset Date Last Indicated Resolved Time COVID-19 03/05/2022 03/05/2022 03/15/2022 7:18 PM EDT Assessment Noted Time PHQ-9 Depression Total Score: 2 11/07/19 19 2:06 PM EDT documented as of this encounter Care Teams Elementary Supervisor Relationship Specialty Start Date End Date Caitlyn Bowie MD [address] [address] PCP - General Internal Medicine 05/06/21 documented as of this encounter
--- OUTSIDE RECORDS SUMMARY | 2024-09-11 11:32 | XMS_ITS | Encounter Summary ---
Author Organization [facility] Address [address] [place] [address] Care Team Providers Care Surface Supervisor Name Role Phone Caitlyn Bowei MD Primary Care Provider +1- [phone] Encounter Details Date Type Department Care Team (Late st Contact Info) Description 09/24/2021 Scanned Document INTERFACE DEFAULT [address] [place] [address] System, Provider Not In Social History Tobacco [...] EDT Procedure visit [facility] [address] [place] [address] [address] [place] [address] 10/31/2024 1:00 PM EDT Telemedicine Cancer Center at [facility] 240 [facility] [address] [place] [address] Ronald Mills MD 240 [facility] A1 [place] [address] documented as of this encounter [...] End Date Caitlyn Bowie MD [address] [address] PCP - General Internal Medicine 05/06/21 documented as of this encounter
--- OUTSIDE RECORDS SUMMARY | 2024-09-11 11:32 | XMS_ITS | Encounter Summary ---
Author Organization [facility] Address [address] [place] [address] Care Team Providers Care Gas Main Fitter Helper Name Role Phone Caitlyn Bowie MD Primary Care Provider +1- [phone] Encounter Details Date Type Department Care Team (Late st Contact Info) Description 06/21/2012 Abstract Head & Neck Cancers Program at [address] [address] Mikel Lloyd MD [address] [place] [phone] (Fax) Social History Tobacco Use Types Packs/Day [...] Description 09/30/2024 8:30 PM EDT Procedure visit [facility] [address] [place] [address] [address] [place] [address] 10/31/2024 1:00 PM EDT Telemedicine Cancer Center at [address] [place] [address] Ronald Mills MD [address] [place] [address] [address] [place] [address] documented as of this encounter Visit Diagnoses Not on filedocumented in this encounter Additional Health Concerns Infection Onset Date Last Indicated Resolved Time COVID-19 03/05/2022 03/05/2022 03/15/2022 7:18 PM EDT documented as of this encounter Care Teams Gas Main Fitter Helper Relationship Specialty Start Date End Date Caitlyn Bowie MD 3400 [facility] 1 [place] [address] PCP - General Internal Medicine 05/06/21 Henry Kelly MD Pulmonary Department 175 [facility], [address] [place] [address] Physician Pulmonary Disease 09/06/17 06/22/20 documented as of this encounter
--- OUTSIDE RECORDS SUMMARY | 2024-09-11 11:32 | XMS_ITS | Encounter Summary ---
Author Organization [facility] and [facility] Address [address] [place] [address] Care Team Providers Care Heating Mechanic Name Role Phone Caitlyn Bowie MD Primary Care Provider +1- [phone] Encounter Details Date Type Department Care Team (Latest Contact Info) Description 04/15/2013 Transcribed Orders [facility] [address] [place] [address] Tian Atwood MD [address] [facility] 102 [place] [address] Unspecified hypothyroidism (Primary Dx) Social [...] Description 09/30/2024 8:30 PM EDT Procedure visit [facility] [address] [place] [address] [address] [place] [address] 10/31/2024 1:00 PM EDT Telemedicine [facility] 240 [facility] Building [address] [place], [place] [address] Ronald Mills MD 240 [facility] [address] [place] [address] documented as of this encounter Results * Copper, serum total (YH) (04/15/2013 4:31 PM EDT) Copper, Serum Total SEE BELOW [facility] Comment: Test ?Result ? Flag ??Unit ?RefValue Copper, S ? 1.35 ? mcg/mL ??0.75-1.45 04/15/2013 4:31 PM EDT us Tian Atwood MD LAB BLOOD ORDERABLES Final R esult [facility] [address] [place] [address] documented in this encounter Visit Diagnoses Diagnosis Unspecified hypothyroidism- Primary documented in this encounter Additional Health Concerns Infection Onset Date Last Indicated Resolved Time COVID-19 03/05/2022 03/05/2022 03/15/2022 7:18 PM EDT documented as of this encounter Care Teams Heating Mechanic Relationship Specialty Start Date End Date Caitlyn Bowie MD 39[address] [facility] 1 [place] [address] PCP - General Internal Medicine 05/06/21 Henry Kelly MD Pulmonary Department 175 [facility], [address] [place], [place] [id number] Physician Pulmonary Disease 09/06/17 06/22/20 documented as of this encounter
--- OUTSIDE RECORDS SUMMARY | 2024-09-11 11:32 | XMS_ITS | Encounter Summary ---
Author Organization [facility] and [facility] Address [address] [place] [address] Care Team Providers Care Senior Manager Quality Assurance Name Role Phone Caitlyn Bowie MD Primary Care Provider +1- [phone] Encounter Details Date Type Department Care Team (Late st Contact Info) Description 09/23/2021 Scanned Document INTERFACE DEFAULT [address] [place] [address] System, Provider Not In Social History Tobacco [...] Description 09/30/2024 8:30 PM EDT Procedure visit [facility] [address] [place] [address] [address] [place] [address] 10/31/2024 1:00 PM EDT Telemedicine Cancer Center at [facility] 240 [facility] [address] [place] [address] Ronald Mills MD 240 [facility] [address]1 [place] [address] documented as of this encounter Procedures Procedure [...] as of this encounter Care Teams Senior Manager Quality Assurance Relationship Specialty Start Date End Date Caitlyn Bowie MD [address] [address] PCP - General Internal Medicine 05/06/21 documented as of this encounter
--- OUTSIDE RECORDS SUMMARY | 2024-09-11 11:32 | XMS_ITS | Encounter Summary ---
Author Organization [facility] and [facility] Address [address] [place] [address] Care Team Providers Care Impress Associate Name Role Phone Caitlyn Bowie MD Primary Care Provider +1- [phone] Encounter Details Date Type Department Care Team (Late st Contact Info) Description 08/29/2019 Scanned Document Cancer Center at [address] [address] External, Provider Social History Tobacco Use Types [...] Description 09/30/2024 8:30 PM EDT Procedure visit [facility] [address] [place] [address] [address] [place] [address] 10/31/2024 1:00 PM EDT Telemedicine Cancer Center at [address] [place] [address] Ronald Mills MD [address] [address] documented as of this encounter [...] documented as of this encounter Care Teams Impress Associate Relationship Specialty Start Date End Date Caitlyn Bowie MD 3400 [facility] [address] 1 [place] [address] PCP - General Internal Medicine 05/06/21 Henry Kelly MD Pulmonary Department [address] [place] [address], [address] [place] [address] Physician Pulmonary Disease 09/06/17 06/22/20 documented as of this encounter
--- OUTSIDE RECORDS SUMMARY | 2024-09-11 11:32 | XMS_ITS ---
Author Organization [facility] Address [address] [facility] [address] [place] [address] Care Team Providers Care Grey Washer Name Role Phone EVELIN RAMSAY Primary Care Provider Yenny Hou Unavailable [phone] Allergies Allergen (clinical drug ingredient) Drug/Non Drug [...] 1/2 tab prn during the day [facility] 06/10/2014 Active Advair HFA 230-21MCG/ACT 2 Inhalation tw ice daily for -3 06/10/2014 Active EpiPen Active Meclizine HCl 25 MG 1 tablet as needed Orally [facility] 06/10/2014 Active Rosuvastatin Calcium 05/03/2024 Active predniSONE 2.5 MG Oral for 30 Active Singulair 10 MG 1 tablet Orally Once a day Active Metoprolol Succinate ER 50 MG 1 tablet Orally Once a day Active Synthroid 25MCG 1 ORAL daily for - [facility] 06/10/2014 Active Albuterol Sulfate (2.5 [...] Encounters Encounter Location Date Provider Diagnosis Total [address] [place] [address] 07/09/2024 Yenny Lovettva Urgency of urination R39.15 [...] Notes * TONIE WATSONOB:1945 (79 yo F)Acc No.[id number]:07/09/2024 PROGRESS NOTES Patient:?SHIRLEY CINDA Appointment Provider:?Yenny doan M.D. :1945???Age:79 Y???Sex:Female D ate:07/09/2024 Address:[address] [place] [address], [facility] Pcp:EVELIN RAMSAY Subjective: * Chief Complaints: * [...] ODORED DISCHARGE.?no?skin complaints.? * Medical History:? 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 * Examination: ???INSURANCE PREMIUM AUDITOR exam: ?EXTERNAL GENITALIA:?Normal female. No lesions, erythema [...] Elizalde M.D. Date:?07/09/2024 Generated for Arely paige/Sebastian/Zacheryitting on:?09/11/2024 11:32 AM EST History and Physical Notes * [...] Category Sub-Category Detail Notes Category Not es INSURANCE PREMIUM AUDITOR exam CERVIX: surgically absent VAGINA: atrophic changes, er ythematous with yellow white discharge, pH>4.5, +whiff test EXTERNAL GENITALIA: Normal female. No le sions, erythema or discharge UTERUS: absent ADNEXA: surgically absent
--- OUTSIDE RECORDS SUMMARY | 2024-09-11 11:32 | XMS_ITS | Encounter Summary ---
Author Organization [facility] and [facility] Address [address] [place] [address] Care Team Providers Care Research Development Director Name Role Phone Caitlyn Bowie MD Primary Care Provider +1- [phone] Encounter Details Date Type Department Care Team (Late st Contact Info) Description 04/26/2021 Scanned Document INTERFACE DEFAULT [address] [place] [address] System, Provider Not In Social History Tobacco [...] Description 09/30/2024 8:30 PM EDT Procedure visit [facility] [address] [place] [address] [address] [place] [address] 10/31/2024 1:00 PM EDT Telemedicine Cancer Center at [facility] 240 [facility] Building [address] [place] [address] Ronald Mills MD 240 [facility] A1 [place] [address] documented as of this encounter [...] as of this encounter Care Teams Research Development Director Relationship Specialty Start Date End Date Caitlyn oBwie MD [facility] [address] [address] PCP - General Internal Medicine 05/06/21 documented as of this encounter
--- OUTSIDE RECORDS SUMMARY | 2024-09-11 11:32 | XMS_ITS | Encounter Summary ---
Author Organization [facility] and [facility] Address [address] [place] [address] Care Team Providers Care Veneer Clipper Helper Name Role Phone Caitlyn Bowie MD Primary Care Provider +1- [phone] Encounter Details Date Type Department Care Team (Late st Contact Info) Description 07/22/2021 Scanned Document INTERFACE DEFAULT [address] [place] [address] System, Provider Not In Social History Tobacco [...] Description 09/30/2024 8:30 PM EDT Procedure visit [facility] [address] [place] [address] [address] [place] [address] 10/31/2024 1:00 PM EDT Telemedicine Cancer Center at [facility] 240 [facility] [address] [place] [address] Ronald Mills MD 240 [facility] A1 [place] [address] documented as of this encounter Procedures Procedure [...] documented as of this encounter Care Teams Veneer Clipper Helper Relationship Specialty Start Date End Date Caitlyn Bowie MD [address] [place] [address] [address] PCP - General Internal Medicine 05/06/21 documented as of this encounter
--- OUTSIDE RECORDS SUMMARY | 2024-09-11 11:32 | XMS_ITS | Encounter Summary ---
Author Organization [facility] and [facility] Address [address] [place] [address] Care Team Providers Care Outcomes Analyst Name Role Phone Caitlyn Bowie MD Primary Care Provider +1- [phone] Encounter Details Date Type Department Care Team (Late st Contact Info) Description 09/09/2021 Scanned Document INTERFACE DEFAULT [address] [place] [address] System, Provider Not In Social History Tobacco [...] Description 09/30/2024 8:30 PM EDT Procedure visit [facility] [address] [place] [address] [address] [place] [address] 10/31/2024 1:00 PM EDT Telemedicine [facility] at [facility] 240 [facility] [address] [place] [address] Ronald Mills MD 240 [facility] A1 [place] [address] documented as of this encounter Visit Diagnoses Not on filedocumented in this encounter Additional Health Concerns Infection Onset Date Last Indicated Resolved Time COVID-19 03/05/2022 03/05/2022 03/15/2022 7:18 PM EDT Assessment Noted Time PHQ-9 Depression Total Score: 2 11/07/19 19 2:06 PM EDT documented as of this encounter Care Teams Outcomes Analyst Relationship Specialty Start Date End Date Caitlyn Bowie MD [address] [address] PCP - General Internal Medicine 05/06/21 documented as of this encounter
--- OUTSIDE RECORDS SUMMARY | 2024-09-11 11:32 | XMS_ITS | Encounter Summary ---
Author Organization [facility] and [facility] Address [address] [place] [address] Care Team Providers Care Lab Tester Name Role Phone Caitlyn Bowie MD Primary Care Provider +1- [phone] Encounter Details Date Type Department Care Team (Late st Contact Info) Description 04/24/2021 Scanned Document INTERFACE DEFAULT [address] [place] [address] System, Provider Not In Social History Tobacco [...] Description 09/30/2024 8:30 PM EDT Procedure visit [facility] [address] [place] [address] [address] [place] [address] 10/31/2024 1:00 PM EDT Telemedicine [facility] Center at [facility] 240 [facility] Building [address] [place] [address] Ronald Mills MD 240 [facility] A1 [place] [address] documented as of this encounter Procedures Procedure [...] documented as of this encounter Care Teams Lab Tester Relationship Specialty Start Date End Date Caitlyn Bowie MD [address] [address] PCP - General Internal Medicine 05/06/21 documented as of this encounter
--- OUTSIDE RECORDS SUMMARY | 2024-09-11 11:32 | XMS_ITS | Encounter Summary ---
Author Organization [facility] and [facility] Address [address] [place] [address] Care Team Providers Care Senior Scrum Master Name Role Phone Caitlyn Bowie MD Primary Care Provider +1- [phone] Encounter Details Date Type Department Care Team (Late st Contact Info) Description 06/27/2019 Scanned Document Onco-Oncology Program at [address] [place] [address] Norma Renee MD [address] [place] [address] 2 [place] [phone] Social History Tobacco Use Types Packs/Day Years [...] Description 09/30/2024 8:30 PM EDT Procedure visit [facility] [address] [place] [address] 10/31/2024 1:00 PM EDT Telemedicine Cancer Center at [address] [place], [place] [address] Ronald Mills MD 240 [facility] Max [address]1 [place] [address] documented as of this encounter Visit Diagnoses Not on filedocumented in this encounter Additional Health Concerns Infection Onset Date Last Indicated Resolved Time COVID-19 03/05/2022 03/05/2022 03/15/2022 7:18 PM EDT Assessment Noted Time PHQ-9 Depression Total Score: 2 11/07/19 19 2:06 PM EDT documented as of this encounter Care Teams Senior Scrum Master Relationship Specialty Start Date End Date Caitlyn Bowie MD 3400 [facility] 1 [place] [address] PCP - General Internal Medicine 05/06/21 Henry Kelly MD Pulmonary Department [address] [place] [address], [address] [place] [address] Physician Pulmonary Disease 09/06/17 06/22/20 documented as of this encounter
--- OUTSIDE RECORDS SUMMARY | 2024-09-11 11:32 | XMS_ITS | Encounter Summary ---
Author Organization [facility] Address [address] [place] [address] Care Team Providers Care Row Boss Name Role Phone Caitlyn Bowie MD Primary Care Provider +1- [phone] Encounter Details Date Type Department Care Team (Late Contact Info) Description 01/31/2023 Abstract [facility] Mel[facility] 35 [facility] [place] [address] Shilpi Romero, RN Social History Tobacco Use [...] Description 09/30/2024 8:30 PM EDT Procedure visit [facility] [address] [place] [address] [address] [place] [address] 10/31/2024 1:00 PM EDT Telemedicine Cancer Center at [address] [place] [address] Ronald Mills MD [address] [place] [address] [address] [place] [address] documented as of this encounter Visit Diagnoses Not on filedocumented in this encounter Additional Health Concerns Assessment Noted Time PHQ-9 Depression Total Score: 2 11/07/19 19 2:06 PM EDT documented as of this encounter Care Teams Row Boss Relationship Specialty Start Date End Date Caitlyn Bowie MD [address] [address] PCP - General Internal Medicine 05/06/21 documented as of this encounter
--- OUTSIDE RECORDS SUMMARY | 2024-09-11 11:32 | XMS_ITS | Encounter Summary ---
Author Organization [facility] and [facility] Address [address] [place] [address] Care Team Providers Care Acid Cleaner Name Role Phone Caitlyn Bowie MD Primary Care Provider +1- [phone] Encounter Details Date Type Department Care Team (Late st Contact Info) Description 01/22/2020 Scanned Document Lab for [facility] 800 [place] [address] Kerwin Menjivar MD [address] [place] [address] Social History Tobacco Use Types Packs/Day [...] Description 09/30/2024 8:30 PM EDT Procedure visit [facility] [address] [place] [address] [address] [place] [address] 10/31/2024 1:00 PM EDT Telemedicine Cancer Center at [address] [place], [place] [address] Ronald Mills MD 240 [facility] Max [address]1 [place] [address] documented as of this encounter Visit Diagnoses Not on filedocumented in this encounter Additional Health Concerns Infection Onset Date Last Indicated Resolved Time COVID-19 03/05/2022 03/05/2022 03/15/2022 7:18 PM EDT Assessment Noted Time PHQ-9 Depression Total Score: 2 11/07/19 19 2:06 PM EDT documented as of this encounter Care Teams Acid Cleaner Relationship Specialty Start Date End Date Caitlyn Bowie MD [address] [address] PCP - General Internal Medicine 05/06/21 Henry Kelly MD Pulmonary Department 175 [facility], [address] [place] [address] Physician Pulmonary Disease 09/06/17 06/22/20 documented as of this encounter
--- OUTSIDE RECORDS SUMMARY | 2024-09-11 11:33 | XMS_ITS | Encounter Summary ---
Author Organization [facility] Address [address] [place] [address] Care Team Providers Care Cigar Inspector Name Role Phone Brennan Burnett MD Primary Care Provider [phone] Encounter Details Date Type Department Care Team (Late st Contact Info) Description 08/26/2024 10:30 AM EST Telemedicine [facility] [address] [facility] [address] [place] [phone] Ayanna Jaffe MD [address] [facility] [address] [place] [address] Anxiety (Primary Dx); Memory change; Gait abnormality; [...] which they are responsible for. Patients Location: [facility]: Jovana Malik is a 79 [...] with sleep she restarted She saw her computer numerical control operator and will refer to sleep study she wants to go to [facility] 79 yo female with PMH Pulmonary HTN , She does have coronary disease but nothing high-grade and never had percutaneous coronary invention or heart surgery leg bypass. 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 The majority of the actual ahvk-tp-dezy visit was spent counseling the patient with respect to the current neurological picture. Ayanna Jaffe MD 33 documented in this encounter Plan of Treatment Upcoming Encounters Date Type Department Care Team (Late st Contact Info) Description 10/09/2024 12:45 PM EDT Treatment [facility] Speech Therapy [address] [place] [address] Daphne Alarcon, PRESIDENT AND CEO documented as of this encounter Goals Goal Patient Goal Type Associated Problems Recent Progress Patient-Stated? Author ST [facility] General No Daphne Alarcon, PRESIDENT AND CEO Note: Pt will improve cognitive linguistic function to participate and communicate in iADLs mod I ST STGs General No Daphne Alarcon, PRESIDENT AND CEO Note: Pt will participate with development of [...] documented as of this encounter Care Teams Cigar Inspector Relationship Specialty Start Date End Date Brennan Burnett MD [address] [place] [address] PCP - General 05/06/24 documented as of this encounter
--- OUTSIDE RECORDS SUMMARY | 2024-09-11 11:33 | XMS_ITS ---
Author Organization [facility] Address [address] [facility] [address] [place] [address] Care Team Providers Care Route Sales Representative Name Role Phone EVELIN RAMSAY Primary Care Provider Yenny Hou Unavailable [phone] Allergies Allergen (clinical drug ingredient) Drug/Non Drug [...] bedtime, 1/2 tab prn during the day [facility] 06/10/2014 Active traZODone HCl 50MG 1 ORAL at bedtime fo r -3 [facility] 06/10/2014 Active Meclizine HCl 25 MG 1 tablet as needed Orally [facility] 06/10/2014 Active Advair HFA 230-21MCG/ACT 2 [...] Synthroid 25MCG 1 ORAL daily for -3 [facility] 06/10/2014 Active Singulair 10 MG 1 [...] 25 Encounters Encounter Location Date Provider Diagnosis [address] [place] [address] 07/18/2024 Yenny Elizalde Encounter for screening mammogram [...] Notes * TONIE WATSONOB:1945 (79 yo F)Acc No.[id number]:07/18/2024 PROGRESS NOTES Patient:?CINDA WATSON Appointment Provider:?Yenny doan M.D. :1945???Age:79 Y???Sex:Female D ate:07/18/2024 Address:[address] [place] [address] Pcp:EVELIN RAMSAY Subjective: * Chief Complaints: * ???LT BREAST PAIN * HPI: ???New/Follow-up Patient Consult:? PAT C/O LEFT BREAST DISCOMFORT OF A FEW DAYS DURATION.? NO NIPPLE DISCHARGE, NO PALPABLE MASSES.? HER LAST MAMMOGRAM DONE IN AUG 2023 WAS NORMAL. * ROS:?general:?no?chest pain.?no?palpitations.?no?headache.?no?cough.?no?shortness of breath.?no?fever.?no?unexplained weight loss.?no?nausea/vomiting.?no?change in bowel movements.?no blood in stool.?no?genitourinary complaints.?no?skin complaints.? * Medical History:? 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 Date:?07/18/2024 Generated for Arely paige/Sebastian/Brandonsmitting on:?09/11/2024 11:32 AM EST History and Physical [...] General Examination GENERAL APPEARANCE: in no ac [place] distress, well developed, well nourished BREASTS: normal, no dimpling, no discharge, no drainage, no masses palpable bilaterally, nontender
--- OUTSIDE RECORDS SUMMARY | 2024-09-11 11:33 | XMS_ITS | Encounter Summary ---
Author Organization [facility] and [facility] Address [address] [place] [address] Care Team Providers Care Storeroom Keeper Name Role Phone Caitlyn Bowie MD Primary Care Provider +1- [phone] Encounter Details Date Type Department Care Team (Late st Contact Info) Description 04/20/2023 Scanned Document INTERFACE DEFAULT [address] [place] [address] System, Provider Not In Social History Tobacco [...] Description 09/30/2024 8:30 PM EDT Procedure visit [facility] [address] [place] [address] [address] [place] [address] 10/31/2024 1:00 PM EDT Telemedicine Cancer Center at [facility] 240 [facility] Building [address] [place] [address] Ronald Mills MD 240 [facility] A1 [place] [phone] documented as of this encounter Procedures Procedure [...] documented as of this encounter Care Teams Storeroom Keeper Relationship Specialty Start Date End Date Caitlyn Bowie MD [address] [address] PCP - General Internal Medicine 05/06/21 documented as of this encounter
--- OUTSIDE RECORDS SUMMARY | 2024-09-11 11:33 | XMS_ITS | Encounter Summary ---
Author Organization [facility] and [facility] Address [address] [place] [address] Care Team Providers Care Sales Attendant Name Role Phone Caitlyn Bowie MD Primary Care Provider +1- [phone] Encounter Details Date Type Department Care Team (Late st Contact Info) Description 06/21/2022 Scanned Document INTERFACE DEFAULT [address] [place] [address] System, Provider Not In Social History Tobacco [...] Description 09/30/2024 8:30 PM EDT Procedure visit [facility] [address] [place] [address] [address] [place] [address] 10/31/2024 1:00 PM EDT Telemedicine Cancer Center at [facility] [address] [facility] [address] [place] [address] Ronald Mills MD 240 [facility] A1 [place] [phone] documented as of this encounter Procedures Procedure [...] as of this encounter Care Teams Sales Attendant Relationship Specialty Start Date End Date Caitlyn Bowie MD [address] [address] PCP - General Internal Medicine 05/06/21 documented as of this encounter
--- OUTSIDE RECORDS SUMMARY | 2024-09-11 11:33 | XMS_ITS | Encounter Summary ---
Author Organization [facility] Address [address] [place] [address] Care Team Providers Care Warp Knitter Helper Name Role Phone Caitlyn Bowie MD Primary Care Provider +1- [phone] Encounter Details Date Type Department Care Team (Late st Contact Info) Description 04/26/2017 Scanned Document Cardiovascular Medicine at [address] [address] System, Provider Not In Social History Tobacco [...] Description 09/30/2024 8:30 PM EDT Procedure visit [facility] [address] [place] [address] [address] [place] [address] 10/31/2024 1:00 PM EDT Telemedicine Cancer Center at [facility] 240 [facility] Building [address] [place], [place] [phone] Ronald Mills MD 240 [facility] A1 [place] [address] documented as of this encounter [...] documented as of this encounter Care Teams Warp Knitter Helper Relationship Specialty Start Date End Date Caitlyn Bowie MD 3400 [facility] Max 1 [place] [address] PCP - General Internal Medicine 05/06/21 Henry Kelly MD Pulmonary Department 175 [facility], [address] [place] [address] Physician Pulmonary Disease 09/06/17 06/22/20 documented as of this encounter
--- OUTSIDE RECORDS SUMMARY | 2024-09-11 11:33 | XMS_ITS | Encounter Summary ---
Author Organization [facility] Address [address] [place] [address] Care Team Providers Care Guide Delegate Name Role Phone Brennan Burnett MD Primary Care Provider [phone] Reason for Visit * Reason Onset Date Comments returning pt call 08/19/2024 Encounter Details Date Type Department Care Team (Late st Contact Info) Description 08/19/2024 Telephone [facility] Speech Therapy [address] [address] Daphne Alarcon, MAINTENANCE OF WAY CLERK returning pt call Social History Tobacco Use [...] call about receiving a copy of her MAINTENANCE OF WAY CLERK evaluation. She has called medical records and was not able to reach an employee. She does not use [facility] and is requesting a copy of her records. Left her VM with information to complete medical release form (can be emailed or mailed) and then how to submit completed form. documented in this encounter Plan of Treatment Upcoming Encounters Date Type Department Care Team (Late st Contact Info) Description 10/09/2024 12:45 PM EDT Treatment [facility] Speech Therapy [address] [place] [address] Daphne Alarcon MAINTENANCE OF WAY CLERK documented as of this encounter Goals Goal Patient Goal Type Associated Problems Recent Progress Patient-Stated? Author ST L[facility] General No Daphne Alarcon, MAINTENANCE OF WAY CLERK Note: Pt will improve cognitive linguistic function to participate and communicate in iADLs mod I ST STGs General No Daphne Alarcon, MAINTENANCE OF WAY CLERK Note: Pt will participate with development of [...] on filedocumented in this encounter Care Teams Guide Delegate Relationship Specialty Start Date End Date Brennan Burnett MD [address] [place] [address] PCP - General 05/06/24 documented as of this encounter
--- OUTSIDE RECORDS SUMMARY | 2024-09-11 11:33 | XMS_ITS | Encounter Summary ---
Author Organization [facility] Address [address] [place] [address] Care Team Providers Care International Trade Teacher Name Role Phone Caitlyn Bowie MD Primary Care Provider +1- [phone] Encounter Details Date Type Department Care Team (Late st Contact Info) Description 07/08/2022 Scanned Document Cardiovascular Medicine at [address] [address] Norma Renee MD [address] [place] [phone] Social History Tobacco Use Types Packs/Day Years [...] Description 09/30/2024 8:30 PM EDT Procedure visit [facility] [address] [place] [address] [address] [place] [address] 10/31/2024 1:00 PM EDT Telemedicine Cancer Center at [address] [place] [address] Ronald Mills MD 240 [facility] Max [address] [place] [address] documented as of this encounter Visit Diagnoses Not on filedocumented in this encounter Additional Health Concerns Assessment Noted Time PHQ-9 Depression Total Score: 2 11/07/19 19 2:06 PM EDT documented as of this encounter Care Teams International Trade Teacher Relationship Specialty Start Date End Date Caitlyn Bowie MD 3400 [facility] 1 [place] [address] PCP - General Internal Medicine 05/06/21 documented as of this encounter
--- OUTSIDE RECORDS SUMMARY | 2024-09-11 11:33 | XMS_ITS | Encounter Summary ---
Author Organization [facility] Address [address] [place] [address] Care Team Providers Care Patient Day Coordinator Name Role Phone Caitlyn Bowie MD Primary Care Provider +1- [phone] Encounter Details Date Type Department Care Team (Late st Contact Info) Description 05/17/2023 Scanned Document INTERFACE DEFAULT [address] [place] [address] System, Provider Not In Social History Tobacco [...] Description 09/30/2024 8:30 PM EDT Procedure visit [facility] [address] [place] [address] [address] [place] [address] 10/31/2024 1:00 PM EDT Telemedicine [facility] at [facility] 240 [facility] Building [address] [place] [address] Ronald Mills MD 240 [facility] A1 [place] [address] documented as of this encounter Procedures Procedure [...] as of this encounter Care Teams Patient Day Coordinator Relationship Specialty Start Date End Date Caitlyn Bowie MD [address] [address] PCP - General Internal Medicine 05/06/21 documented as of this encounter
--- OUTSIDE RECORDS SUMMARY | 2024-09-11 11:33 | XMS_ITS | Encounter Summary ---
Author Organization [facility] Address [address] [place] [address] Care Team Providers Care Mammal Control Agent Name Role Phone Caitlyn Bowie MD Primary Care Provider [phone]- [phone] Encounter Details Date Type Department Care Team (Late st Contact Info) Description 05/10/2022 Scanned Document Cardiovascular Medicine at [address] [address] Norma Renee MD [address] [place] [phone] Social History Tobacco Use Types Packs/Day Years [...] EDT Procedure visit [facility] [address] [place] [address] [address] [place] [address] 10/31/2024 1:00 PM EDT Telemedicine Cancer Center at [address] [place] [address] Ronald Mills MD 240 [facility] Max [address]1 [place] [address] documented as of this encounter Visit Diagnoses Not on filedocumented in this encounter Additional Health Concerns Assessment Noted Time PHQ-9 Depression Total Score: 2 11/07/19 19 2:06 PM EDT documented as of this encounter Care Teams Mammal Control Agent Relationship Specialty Start Date End Date Caitlyn Bowie MD 3400 [facility] 1 [place] [address] PCP - General Internal Medicine 05/06/21 documented as of this encounter
--- OUTSIDE RECORDS SUMMARY | 2024-09-11 11:33 | XMS_ITS | Encounter Summary ---
Author Organization [facility] Address [address] [place] [address] Care Team Providers Care Progressive Assembler And Fitter Name Role Phone Caitlyn Bowie MD Primary Care Provider +1- [phone] Encounter Details Date Type Department Care Team (Late st Contact Info) Description 06/28/2022 Scanned Document INTERFACE DEFAULT [address] [place] [address] System, Provider Not In Social History Tobacco [...] Description 09/30/2024 8:30 PM EDT Procedure visit [facility] [address] [place] [address] [address] [place] [address] 10/31/2024 1:00 PM EDT Telemedicine Cancer Center at [facility] 240 [facility] Building [address] [place] [address] Ronald Mills MD 240 [facility] [address]1 [place] [address] documented as of this encounter Procedures Procedure [...] documented as of this encounter Care Teams Progressive Assembler And Fitter Relationship Specialty Start Date End Date Caitlyn Bowie MD [address] [address] PCP - General Internal Medicine 05/06/21 documented as of this encounter
--- OUTSIDE RECORDS SUMMARY | 2024-09-11 11:33 | XMS_ITS | Encounter Summary ---
Author Organization [facility] and [facility] Address [address] [place] [address] Care Team Providers Care Transit Bus Operator Name Role Phone Caitlyn Bowie MD Primary Care Provider +1- [phone] Reason for Visit * Reason Comments Triage extream dry skin Encounter Details Date Type Department Care Team ([facility] st Contact Info) Description 05/12/2023 Telephone Medical Dermatology at [address] [address] Augustine Vargas MD [address] [place] [address] Triage (extream dry skin) Social History [...] to her by Dr. Vargas at the [facility]. Requested that she send pictures which [...] know if there's something the can prescribe. [phone] documented in this encounter Plan of Treatment Upcoming Encounters Date Type Department Care Team (Late st Contact Info) Description 09/30/2024 8:30 PM EDT Procedure visit [facility] [address] [place] [address] [address] [place] [address] 10/31/2024 1:00 PM EDT Telemedicine Cancer Center at [facility] 240 [facility] Building [address] [place] [address] Ronald Mills MD 240 [facility] Max [address]1 [place] [address] documented as of this encounter Visit Diagnoses Not on filedocumented in this encounter Additional Health Concerns Assessment Noted Time PHQ-9 Depression Total Score: 2 11/07/19 19 2:06 PM EDT documented as of this encounter Care Teams Transit Bus Operator Relationship Specialty Start Date End Date Caitlyn Bowie MD [address] [address] PCP - General Internal Medicine 05/06/21 documented as of this encounter
--- OUTSIDE RECORDS SUMMARY | 2024-09-11 11:33 | XMS_ITS | Encounter Summary ---
Author Organization [facility] Address [address] [place] [address] Care Team Providers Care Shoulder Puncher Name Role Phone Caitlyn Bowie MD Primary Care Provider +1- [phone] Encounter Details Date Type Department Care Team (Late st Contact Info) Description 04/26/2017 Scanned Document Cardiovascular Medicine at [address] [place] [address] Norma Renee MD [address] [place] [phone] Social History Tobacco Use Types Packs/Day Years [...] EDT Procedure visit [facility] [address] [place] [address] [address] [place] [address] 10/31/2024 1:00 PM EDT Telemedicine [facility] at [facility] 240 [facility] [address] [place] [address] Ronald Mills MD 240 [facility] Max A1 [place] [address] documented as of this encounter Visit Diagnoses Not on filedocumented in this encounter Additional Health Concerns Infection Onset Date Last Indicated Resolved Time COVID-19 03/05/2022 03/05/2022 03/15/2022 7:18 PM EDT documented as of this encounter Care Teams Shoulder Puncher Relationship Specialty Start Date End Date Caitlyn Bowie MD 3400 [facility] 1 [place] [address] PCP - General Internal Medicine 05/06/21 Henry Kelly MD Pulmonary Department 175 [facility], [address] [place] [address] Physician Pulmonary Disease 09/06/17 06/22/20 documented as of this encounter
--- OUTSIDE RECORDS SUMMARY | 2024-09-11 11:33 | XMS_ITS | Encounter Summary ---
Author Organization [facility] Address [address] [place] [address] Care Team Providers Care Food Truck Caterer Name Role Phone Caitlyn Bowie MD Primary Care Provider +1- [phone] Encounter Details Date Type Department Care Team (Late st Contact Info) Description 04/19/2023 Scanned Document INTERFACE DEFAULT [address] [place] [address] System, Provider Not In Social History Tobacco [...] 09/30/2024 8:30 PM EDT Procedure visit [facility] [address] [place] [address] [address] [place] [address] 10/31/2024 1:00 PM EDT [facility]icine [facility] 240 [facility] [address] [place] [address] Ronald Mills MD 240 [facility] A1 [place] [address] documented as of this encounter Procedures Procedure [...] as of this encounter Care Teams Food Truck Caterer Relationship Specialty Start Date End Date Caitlyn Bowie MD [address] [address] PCP - General Internal Medicine 05/06/21 documented as of this encounter
--- OUTSIDE RECORDS SUMMARY | 2024-09-11 11:33 | XMS_ITS | Encounter Summary ---
Author Organization [facility] Address [address] [place] [address] Care Team Providers Care Associate Professor Of Engineering Name Role Phone Caitlyn Bowie MD Primary Care Provider +1- [phone] Encounter Details Date Type Department Care Team (Late st Contact Info) Description 08/28/2015 Scanned Document [facility] Health Information Management [address] [place] [address] External, Provider Social History Tobacco Use Types [...] Description 09/30/2024 8:30 PM EDT Procedure visit [facility] [address] [place] [address] [address] [place] [address] 10/31/2024 1:00 PM EDT Telemedicine [facility] 240 [facility] Building [address] [place], [place] [address] Ronald Mills MD 240 [facility] A1 [place] [address] documented as of this encounter Visit Diagnoses Not on filedocumented in this encounter Additional Health Concerns Infection Onset Date Last Indicated Resolved Time COVID-19 03/05/2022 03/05/2022 03/15/2022 7:18 PM EDT documented as of this encounter Care Teams Associate Professor Of Engineering Relationship Specialty Start Date End Date Caitlyn Bowie MD [address] [facility] Max 1 [place] [address] PCP - General Internal Medicine 05/06/21 Henry Kelly MD Pulmonary Department 175 [facility], [address] [place] [address] Physician Pulmonary Disease 09/06/17 06/22/20 documented as of this encounter
--- OUTSIDE RECORDS SUMMARY | 2024-09-11 11:33 | XMS_ITS | Encounter Summary ---
Author Organization [facility] Address [address] [place] [address] Care Team Providers Care Water Safety Teacher Name Role Phone Caitlyn Bowie MD Primary Care Provider +1- [phone] Encounter Details Date Type Department Care Team (Late st Contact Info) Description 09/28/2015 Scanned Document [facility] Health Information Management [address] [place] [address] External, Provider Social History Tobacco Use Types [...] Description 09/30/2024 8:30 PM EDT Procedure visit [facility] [address] [place] [address] [address] [place] [address] 10/31/2024 1:00 PM EDT Telemedicine [facility] at [facility] 240 [facility] Building [address] [place], [place] [address] Ronald Mills MD 240 [facility] [address]1 [place] [address] documented as of this encounter Procedures Procedure Name Priority Date/Time Associated Diagnosis Comments LAB SCAN Routine 09/09/2015 documented in this encounter Results * Lab Scan (09/09/2015) Blood specimen (specimen) us Provider External LAB BLOOD ORDERABLES Final Res ult Performing Organization Address City/State/[facility] Co de Phone Number [facility] documented in this encounter Visit Diagnoses Not on filedocumented in this encounter Additional Health Concerns Infection Onset Date Last Indicated Resolved Time COVID-19 03/05/2022 03/05/2022 03/15/2022 7:18 PM EDT documented as of this encounter Care Teams Water Safety Teacher Relationship Specialty Start Date End Date Caitlyn Bowie MD 3400 [facility] Max 1 [place] [address] PCP - General Internal Medicine 05/06/21 Henry Kelly MD Pulmonary Department 175 [facility], [address] [place] [address] Physician Pulmonary Disease 09/06/17 06/22/20 documented as of this encounter
--- OUTSIDE RECORDS SUMMARY | 2024-09-11 11:33 | XMS_ITS | Encounter Summary ---
Author Organization [facility] Address [address] [place] [address] Care Team Providers Care Dedenter Name Role Phone Caitlyn Bowie MD Primary Care Provider +1- [phone] Encounter Details Date Type Department Care Team (Late st Contact Info) Description 04/27/2017 Scanned Document [facility] Health Information Management [address] [place] [address] External, Provider Social History Tobacco Use Types [...] Description 09/30/2024 8:30 PM EDT Procedure visit [facility] [address] [place] [address] [address] [place] [address] 10/31/2024 1:00 PM EDT Telemedicine [facility] 240 [facility] [address] [place], [place] [address] Ronald Mills MD 240 [facility] A1 [place] [address] documented as of this encounter Visit Diagnoses Not on filedocumented in this encounter Additional Health Concerns Infection Onset Date Last Indicated Resolved Time COVID-19 03/05/2022 03/05/2022 03/15/2022 7:18 PM EDT documented as of this encounter Care Teams Dedenter Relationship Specialty Start Date End Date Caitlyn Bowie MD 3400 [facility] Max 1 [place] [address] PCP - General Internal Medicine 05/06/21 Henry Klely MD Pulmonary Department 175 [facility], [address] [place] [address] Physician Pulmonary Disease 09/06/17 06/22/20 documented as of this encounter
--- OUTSIDE RECORDS SUMMARY | 2024-09-11 11:33 | XMS_ITS | Encounter Summary ---
Author Organization [facility] and [facility] Address [address] [place] [address] Care Team Providers Care Singe Winder Name Role Phone Caitlyn Bowie MD Primary Care Provider +1- [phone] Encounter Details Date Type Department Care Team (Late st Contact Info) Description 06/24/2022 Scanned Document INTERFACE DEFAULT [address] [place] [address] System, Provider Not In Social History Tobacco [...] Description 09/30/2024 8:30 PM EDT Procedure visit [facility] [address] [place] [address] [address] [place] [address] 10/31/2024 1:00 PM EDT Telemedicine Cancer Center at [facility] 240 [facility] Building [address] [place] [address] Ronald Mills MD 240 [facility] A1 [place] [address] documented as of this encounter Procedures Procedure [...] documented as of this encounter Care Teams Singe Winder Relationship Specialty Start Date End Date Caitlyn Bowie MD [address] [address] PCP - General Internal Medicine 05/06/21 documented as of this encounter
--- OUTSIDE RECORDS SUMMARY | 2024-09-11 11:33 | XMS_ITS | Encounter Summary ---
Author Organization [facility] Address [address] [place] [address] Care Team Providers Care Spout Tender Name Role Phone Caitlyn Bowie MD Primary Care Provider +1- [phone] Encounter Details Date Type Department Care Team (Late st Contact Info) Description 04/13/2023 Scanned Document INTERFACE DEFAULT [address] [place] [address] System, Provider Not In Social History Tobacco [...] Description 09/30/2024 8:30 PM EDT Procedure visit [facility] [address] [place] [address] [address] [place] [address] 10/31/2024 1:00 PM EDT [facility] 240 [facility] [address] [place] [address] Ronald Mills MD 240 [facility] [address]1 [place] [address] documented as of this encounter Procedures Procedure [...] as of this encounter Care Teams Spout Tender Relationship Specialty Start Date End Date Caitlyn Bowie MD [address] [address] PCP - General Internal Medicine 05/06/21 documented as of this encounter
--- OUTSIDE RECORDS SUMMARY | 2024-09-11 11:33 | XMS_ITS | Encounter Summary ---
Author Organization [facility] Address [address] [place] [address] Care Team Providers Care Address Change Clerk Name Role Phone Caitlyn Bowie MD Primary Care Provider +1- [phone] Encounter Details Date Type Department Care Team (Late st Contact Info) Description 10/23/2018 Scanned Document [facility] Health Information Management [address] [place] [address] External, Provider Social History Tobacco Use Types [...] Description 09/30/2024 8:30 PM EDT Procedure visit [facility] [address] [place] [address] [address] [place] [address] 10/31/2024 1:00 PM EDT Telemedicine Cancer Center at [facility] 240 [facility] Building [address] [place], [place] [address] Ronald Mills MD 240 [facility] [address]1 [place] [address] documented as of this encounter Visit Diagnoses Not on filedocumented in this encounter Additional Health Concerns Infection Onset Date Last Indicated Resolved Time COVID-19 03/05/2022 03/05/2022 03/15/2022 7:18 PM EDT documented as of this encounter Care Teams Address Change Clerk Relationship Specialty Start Date End Date Caitlyn Bowie MD 3400 [facility] 1 [place] [address] PCP - General Internal Medicine 05/06/21 Henry Kelly MD Pulmonary Department 175 [facility], [address] [place] [address] Physician Pulmonary Disease 09/06/17 06/22/20 documented as of this encounter
--- OUTSIDE RECORDS SUMMARY | 2024-09-11 11:33 | XMS_ITS | Encounter Summary ---
Author Organization [facility] and [facility] Address [address] [place] [address] Care Team Providers Care Lead Manufacturing Technician Name Role Phone Caitlyn Bowie MD Primary Care Provider +1- [phone] Encounter Details Date Type Department Care Team (Late st Contact Info) Description 05/04/2022 Scanned Document INTERFACE DEFAULT [address] [place] [address] System, Provider Not In Social History Tobacco [...] 09/30/2024 8:30 PM EDT Procedure visit [facility] [address] [place] [address] [address] [place] [address] 10/31/2024 1:00 PM EDT Telemedicine [facility] at [facility] 240 [facility] [address] [place] [address] Ronald Mills MD 240 [facility] A1 [place] [address] documented as of this encounter Visit Diagnoses Not on filedocumented in this encounter Additional Health Concerns Assessment Noted Time PHQ-9 Depression Total Score: 2 11/07/19 19 2:06 PM EDT documented as of this encounter Care Teams Lead Manufacturing Technician Relationship Specialty Start Date End Date Caitlyn Bowie MD [address] [address] PCP - General Internal Medicine 05/06/21 documented as of this encounter
--- OUTSIDE RECORDS SUMMARY | 2024-09-11 11:33 | XMS_ITS | Encounter Summary ---
Author Organization [facility] and [facility] Address [address] [place] [address] Care Team Providers Care Taxi Driver Name Role Phone Caitlyn Bowie MD Primary Care Provider +1- [phone] Encounter Details Date Type Department Care Team (Late st Contact Info) Description 01/02/2024 Scanned Document INTERFACE DEFAULT [address] [place] [address] System, Provider Not In Social History Tobacco [...] Description 09/30/2024 8:30 PM EDT Procedure visit [facility] [address] [place] [address] [address] [place] [address] 10/31/2024 1:00 PM EDT Telemedicine Cancer Center at [facility] 240 [facility] Building [address] [place] [address] Ronald Mills MD 240 [facility] A1 [place] [address] documented as of this encounter Procedures Procedure [...] documented as of this encounter Care Teams Taxi Driver Relationship Specialty Start Date End Date Catilyn Bowie MD [facility] [address] [address] PCP - General Internal Medicine 05/06/21 documented as of this encounter
--- OUTSIDE RECORDS SUMMARY | 2024-09-11 11:33 | XMS_ITS | Encounter Summary ---
Author Organization [facility] and [facility] Address 20 [place] [address] Care Team Providers Care Shafting Cleaner Name Role Phone Caitlyn Bowie MD Primary Care Provider +1- [phone] Encounter Details Date Type Department Care Team (Late st Contact Info) Description 09/24/2015 Scanned Document Digestive Diseases at 40 [facility] [address] [address] Kevin Espinoza MD [address] [place] [address] Social History Tobacco Use Types Packs/Day [...] Description 09/30/2024 8:30 PM EDT Procedure visit [facility] [address] [place] [address] [address] [place] [address] 10/31/2024 1:00 PM EDT Telemedicine Cancer Center at [address] [place] [address] Ronald Mills MD [address] [place] [address] [address] [place] [address] documented as of this encounter Visit Diagnoses Not on filedocumented in this encounter Additional Health Concerns Infection Onset Date Last Indicated Resolved Time COVID-19 03/05/2022 03/05/2022 03/15/2022 7:18 PM EDT documented as of this encounter Care Teams Shafting Cleaner Relationship Specialty Start Date End Date Caitlyn Bowie MD 3400 [facility] 1 [place] [address] PCP - General Internal Medicine 05/06/21 Henry Kelly MD Pulmonary Department 175 [facility], [address] [place] [address] Physician Pulmonary Disease 09/06/17 06/22/20 documented as of this encounter
--- OUTSIDE RECORDS SUMMARY | 2024-09-11 11:33 | XMS_ITS | Encounter Summary ---
Author Organization [facility] Address [address] [place] [address] [address] [place] [address] Phone Care Team Providers Care Sas Sql Developer Name Role Phone Caitlyn Bowie MD Primary Care Provider +1- [phone] Encounter Details Date Type Department Care Team (Late st Contact Info) Description 08/30/2024 Abstract [facility] [address] [place] [address] 202 [place] [address] Adalgisa Whitney MD [address] [place] [address] 202 [place] [address] Social History Tobacco Use Types [...] Description 09/30/2024 8:30 PM EDT Procedure visit [facility] [address] [place] [address] 10/31/2024 1:00 PM EDT Telemedicine Cancer Center at [address] [place] [address] Ronald Mills MD [address] [place] [address] documented as of this encounter Visit Diagnoses Not on filedocumented in this encounter Additional Health Concerns Assessment Noted Time PHQ-9 Depression Total Score: 2 11/07/19 19 2:06 PM EDT documented as of this encounter Care Teams Sas Sql Developer Relationship Specialty Start Date End Date Caitlyn Bowie MD [address] [address] PCP - General Internal Medicine 05/06/21 documented as of this encounter
--- OUTSIDE RECORDS SUMMARY | 2024-09-11 11:33 | XMS_ITS | Encounter Summary ---
Author Organization [facility] and [facility] Address [address] [place] [address] Care Team Providers Care Proofer Name Role Phone Caitlyn Bowie MD Primary Care Provider +1- [phone] Encounter Details Date Type Department Care Team (Late st Contact Info) Description 06/20/2022 Scanned Document INTERFACE DEFAULT [address] [place] [address] System, Provider Not In Social History Tobacco [...] Description 09/30/2024 8:30 PM EDT Procedure visit [facility] [address] [place] [address] [address] [place] [address] 10/31/2024 1:00 PM EDT Telemedicine Cancer [facility] at [facility] 240 [facility] Building [address] [place] [address] Ronald Mills MD 240 [facility] A1 [place] [address] documented as of this encounter Procedures Procedure [...] documented as of this encounter Care Teams Proofer Relationship Specialty Start Date End Date Caitlyn Bowie MD [facility] [address] [address] PCP - General Internal Medicine 05/06/21 documented as of this encounter
--- OUTSIDE RECORDS SUMMARY | 2024-09-11 11:33 | XMS_ITS | Encounter Summary ---
Author Organization [facility] Address [address] [place] [address] Care Team Providers Care Agricultural Extension Agent Name Role Phone Caitlyn Bowie MD Primary Care Provider +1- [phone] Encounter Details Date Type Department Care Team (Late st Contact Info) Description 03/01/2017 Scanned Document Onco-Oncology Program at [address] [address] Norma Renee MD [address] [place] [phone] Social History Tobacco Use Types Packs/Day Years [...] 09/30/2024 8:30 PM EDT Procedure visit [facility] [address] [place] [address] [address] [place] [address] 10/31/2024 1:00 PM EDT Telemedicine Cancer Center at [address] [place], [place] [address] Ronald Mills MD 240 [facility] Max [address] [place] [address] documented as of this encounter Visit Diagnoses Not on filedocumented in this encounter Additional Health Concerns Infection Onset Date Last Indicated Resolved Time COVID-19 03/05/2022 03/05/2022 03/15/2022 7:18 PM EDT documented as of this encounter Care Teams Agricultural Extension Agent Relationship Specialty Start Date End Date Caitlyn Bowie MD 3400 [facility] 1 [place] [address] PCP - General Internal Medicine 05/06/21 Henry Kelly MD Pulmonary Department [address] [place] [address], [address] [place] [address] Physician Pulmonary Disease 09/06/17 06/22/20 documented as of this encounter
--- OUTSIDE RECORDS SUMMARY | 2024-09-11 11:33 | XMS_ITS | Encounter Summary ---
Author Organization [facility] Address [address] [place] [address] Care Team Providers Care Community Service Specialist Name Role Phone Brennan Burnett MD Primary Care Provider [phone] Reason for Visit * Reason Comments Encopresis Encounter Details Date Type Department Care Team (Latest Contact Info) Description 08/23/2024 1:20 PM EST Office Visit Gastroenterology - [address] [facility] [address] [place] [phone] Saima Amor, ALON [address] [facility] [address] [address] Gastroesophageal reflux disease, unspecified whether esophagitis present [...] X week. No bleeding Very gassy. 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 Board Certified Gastroenterology [facility] Medical [facility] W [phone] 299 [facility] 419 [place] [address] [email or web address] Saima Amor NP documented in this encounter Plan of Treatment Upcoming Encounters Date Type Department Care Team (Late st Contact Info) Description 10/09/2024 12:45 PM EDT Treatment [facility] Speech Therapy 175 [facility] 350 [place] [address] Daphne Alarcon, PERSONAL HEALTH COACH documented as of this encounter Goals Goal Patient Goal Type Associated Problems Recent Progress Patient-Stated? Author ST [facility] General No Daphne Alarcon, PERSONAL HEALTH COACH Note: Pt will improve cognitive linguistic function to participate and communicate in iADLs mod I ST STGs General No Daphne Alarcon, PERSONAL HEALTH COACH Note: Pt will participate with development of [...] type documented in this encounter Care Teams Community Service Specialist Relationship Specialty Start Date End Date Brennan Burnett MD [address] [place] [address] PCP - General 05/06/24 documented as of this encounter
--- OUTSIDE RECORDS SUMMARY | 2024-09-11 11:33 | XMS_ITS | Encounter Summary ---
Author Organization [facility] and [facility] Address [address] [place] [address] Care Team Providers Care Client Services Vice President Name Role Phone Caitlyn Bowie MD Primary Care Provider +1- [phone] Encounter Details Date Type Department Care Team (Late st Contact Info) Description 12/04/2018 Scanned Document [facility] Health Information Management [address] [place] [address] External, Provider Social History Tobacco Use Types [...] Procedure visit [facility] [address] [place] [address] [address] [place] [address] 10/31/2024 1:00 PM EDT Telemedicine Cancer Center at [facility] 240 [facility] Building [address] [place], [place] [address] Ronald Mills MD 240 [facility] A1 [place] [address] documented as of this encounter Visit Diagnoses Not on filedocumented in this encounter Additional Health Concerns Infection Onset Date Last Indicated Resolved Time COVID-19 03/05/2022 03/05/2022 03/15/2022 7:18 PM EDT Assessment Noted Time PHQ-9 Depression Total Score: 2 11/07/19 19 2:06 PM EDT documented as of this encounter Care Teams Client Services Vice President Relationship Specialty Start Date End Date Caitlyn Bowie MD 3400 [facility] 1 [place] [address] PCP - General Internal Medicine 05/06/21 Henry Kelly MD Pulmonary Department 175 [facility], [address] [place] [address] Physician Pulmonary Disease 09/06/17 06/22/20 documented as of this encounter
--- OUTSIDE RECORDS SUMMARY | 2024-09-11 11:33 | XMS_ITS | Encounter Summary ---
Author Organization [facility] and [facility] Address 20 [place] [address] Care Team Providers Care Fine Arts Chair Name Role Phone Caitlyn Bowie MD Primary Care Provider [phone]- [phone] Encounter Details Date Type Department Care Team (Late st Contact Info) Description 09/09/2015 Scanned Document [facility] Health Information Management [address] [place] [address] External, Provider Social History Tobacco Use Types [...] EDT Procedure visit [facility] [address] [place] [address] [address] [place] [address] 10/31/2024 1:00 PM EDT Telemedicine Cancer Center at [facility] 240 [facility] Building [address] [place], [place] [address] Ronald Mills MD 240 [facility] A1 [place] [address] documented as of this encounter Procedures Procedure Name Priority Date/Time Associated Diagnosis Comments LAB SCAN Routine 09/09/2015 documented in this encounter Results * Lab Scan (09/09/2015) Blood specimen (specimen) us Provider External LAB BLOOD ORDERABLES Final Res ult Performing Organization Address City/State/[facility] Co de Phone Number [facility] documented in this encounter Visit Diagnoses Not on filedocumented in this encounter Additional Health Concerns Infection Onset Date Last Indicated Resolved Time COVID-19 03/05/2022 03/05/2022 03/15/2022 7:18 PM EDT documented as of this encounter Care Teams Fine Arts Chair Relationship Specialty Start Date End Date Caitlyn Bowie MD 3400 [facility] Max 1 [place] [address] PCP - General Internal Medicine 05/06/21 Henry Kelly MD Pulmonary Department 175 [facility], [address] [place] [address] Physician Pulmonary Disease 09/06/17 06/22/20 documented as of this encounter
--- OUTSIDE RECORDS SUMMARY | 2024-09-11 11:33 | XMS_ITS | Encounter Summary ---
Author Organization [facility] and [facility] Address 20 [place] [address] Care Team Providers Care Salesperson Pets And Pet Supplies Name Role Phone Caitlyn Bowie MD Primary Care Provider [phone]- [phone] Encounter Details Date Type Department Care Team (Late st Contact Info) Description 02/21/2017 Scanned Document [facility] Health Information Management [address] [place] [address] External, Provider Social History Tobacco Use Types [...] 09/30/2024 8:30 PM EDT Procedure visit [facility] [address] [place] [address] [address] [place] [address] 10/31/2024 1:00 PM EDT Telemedicine [facility] at [facility] 240 [facility] Building [address] [place], [place] [address] Ronald Mills MD 240 [facility] A1 [place] [address] documented as of this encounter Procedures Procedure [...] as of this encounter Care Teams Salesperson Pets And Pet Supplies Relationship Specialty Start Date End Date Caitlyn Bowie MD 3400 [facility] 1 [place] [address] PCP - General Internal Medicine 05/06/21 Henry Kelly MD Pulmonary Department 175 [facility], [address] [place] [address] Physician Pulmonary Disease 09/06/17 06/22/20 documented as of this encounter
--- OUTSIDE RECORDS SUMMARY | 2024-09-11 11:33 | XMS_ITS | Encounter Summary ---
Author Organization [facility] Address [address] [place] [address] Care Team Providers Care Sweat Band Sewer Name Role Phone Caitlyn Bowie MD Primary Care Provider +1- [phone] Encounter Details Date Type Department Care Team (Late st Contact Info) Description 05/16/2023 Scanned Document INTERFACE DEFAULT [address] [place] [address] System, Provider Not In Social History Tobacco [...] Description 09/30/2024 8:30 PM EDT Procedure visit [facility] [address] [place] [address] [address] [place] [address] 10/31/2024 1:00 PM EDT Telemedicine Cancer Center at [facility] 240 [facility] Building [address] [place] [address] Ronald Mills MD 240 [facility] A1 [place] [address] documented as of this encounter Procedures Procedure [...] documented as of this encounter Care Teams Sweat Band Sewer Relationship Specialty Start Date End Date Caitlyn Bowie MD [address] [address] PCP - General Internal Medicine 05/06/21 documented as of this encounter
--- OUTSIDE RECORDS SUMMARY | 2024-09-11 11:33 | XMS_ITS | Encounter Summary ---
Author Organization [facility] Address 20 [place] [address] Care Team Providers Care Core Shaper Name Role Phone Caitlyn Bowie MD Primary Care Provider +1- [phone] Encounter Details Date Type Department Care Team (Late st Contact Info) Description 09/09/2015 Scanned Document [facility] Health Information Management [address] [place] [address] External, Provider Social History Tobacco Use [...] Description 09/30/2024 8:30 PM EDT Procedure visit [facility] [address] [place] [address] [address] [place] [address] 10/31/2024 1:00 PM EDT Telemedicine Cancer Center at [facility] 240 [facility] Building [address] [place], [place] [address] Ronald Mills MD 240 [facility] A1 [place] [address] documented as of this encounter Procedures Procedure Name Priority Date/Time Associated Diagnosis Comments LAB SCAN Routine 09/09/2015 documented in this encounter Results * Lab Scan (09/09/2015) Blood specimen (specimen) us Provider External LAB BLOOD ORDERABLES Final Res ult Performing Organization Address City/State/[facility] Co de Phone Number [facility] documented in this encounter Visit Diagnoses Not on filedocumented in this encounter Additional Health Concerns Infection Onset Date Last Indicated Resolved Time COVID-19 03/05/2022 03/05/2022 03/15/2022 7:18 PM EDT documented as of this encounter Care Teams Core Shaper Relationship Specialty Start Date End Date Caitlyn Bowie MD 3400 [facility] Max 1 [place] [address] PCP - General Internal Medicine 05/06/21 Henry Kelly MD Pulmonary Department 175 [facility], [address] [place] [address] Physician Pulmonary Disease 09/06/17 06/22/20 documented as of this encounter
--- OUTSIDE RECORDS SUMMARY | 2024-09-11 11:33 | XMS_ITS | Encounter Summary ---
Author Organization [facility] and [facility] Address 20 [place] [address] Care Team Providers Care Bridal Service Sales And Management Name Role Phone Caitlyn Bowie MD Primary Care Provider +1- [phone] Encounter Details Date Type Department Care Team (Late st Contact Info) Description 09/09/2015 Scanned Document [facility] Health Information Management [address] [place] [address] External, Provider Social History Tobacco Use Types [...] Description 09/30/2024 8:30 PM EDT Procedure visit [facility] [address] [place] [address] [address] [place] [address] 10/31/2024 1:00 PM EDT Telemedicine [facility] at [facility] 240 [facility] Building [address] [place], [place] [address] Ronald Mills MD 240 [facility] A1 [place] [address] documented as of this encounter Procedures Procedure Name Priority Date/Time Associated Diagnosis Comments LAB SCAN Routine 09/09/2015 documented in this encounter Results * Lab Scan (09/09/2015) Blood specimen (specimen) us Provider External LAB BLOOD ORDERABLES Final Res ult Performing Organization Address City/State/[facility] Co de Phone Number [facility] documented in this encounter Visit Diagnoses Not on filedocumented in this encounter Additional Health Concerns Infection Onset Date Last Indicated Resolved Time COVID-19 03/05/2022 03/05/2022 03/15/2022 7:18 PM EDT documented as of this encounter Care Teams Bridal Service Sales And Management Relationship Specialty Start Date End Date Caitlyn Bowie MD 3400 [facility] 1 [place] [address] PCP - General Internal Medicine 05/06/21 Henry Kelly MD Pulmonary Department 175 [facility], [address] [place] [address] Physician Pulmonary Disease 09/06/17 06/22/20 documented as of this encounter
--- OUTSIDE RECORDS SUMMARY | 2024-09-11 11:33 | XMS_ITS | Encounter Summary ---
Author Organization [facility] Address [address] [place] [address] Care Team Providers Care Ballistic Technician Name Role Phone Caitlyn Bowie MD Primary Care Provider +1- [phone] Encounter Details Date Type Department Care Team (Late st Contact Info) Description 09/01/2023 Scanned Document INTERFACE DEFAULT [address] [place] [address] System, Provider Not In Social History Tobacco [...] Description 09/30/2024 8:30 PM EDT Procedure visit [facility] [address] [place] [address] [address] [place] [address] 10/31/2024 1:00 PM EDT Telemedicine [facility] 240 [facility] [address] [place] [address] Ronald Mills MD 240 [facility] A1 [place] [address] documented as of this encounter Visit Diagnoses Not on filedocumented in this encounter Additional Health Concerns Assessment Noted Time PHQ-9 Depression Total Score: 2 11/07/19 19 2:06 PM EDT documented as of this encounter Care Teams Ballistic Technician Relationship Specialty Start Date End Date Caitlyn Bowie MD [address] [address] PCP - General Internal Medicine 05/06/21 documented as of this encounter
--- OUTSIDE RECORDS SUMMARY | 2024-09-11 11:33 | XMS_ITS | Encounter Summary ---
Author Organization [place] [facility] Address [address] [place] [address] Care Team Providers Care Manager Inventory Management Name Role Phone Caitlyn Bowie MD Primary Care Provider +1- [phone] Encounter Details Date Type Department Care Team (Late st Contact Info) Description 06/23/2022 Scanned Document INTERFACE DEFAULT [address] [place] [address] System, Provider Not In Social History Tobacco [...] Description 09/30/2024 8:30 PM EDT Procedure visit [facility] [address] [place] [address] [address] [place] [address] 10/31/2024 1:00 PM EDT Tele[facility]icine [facility] 240 [facility] Building [address] [place] [address] Ronald [place] MD 240 [facility] A1 [place] [address] documented as of this encounter Visit Diagnoses Not on filedocumented in this encounter Additional Health Concerns Assessment Noted Time PHQ-9 Depression Total Score: 2 11/07/19 19 2:06 PM EDT documented as of this encounter Care Teams Manager Inventory Management Relationship Specialty Start Date End Date Caitlyn Bowie MD [address] [address] PCP - General Internal Medicine 05/06/21 documented as of this encounter
--- OUTSIDE RECORDS SUMMARY | 2024-09-11 11:33 | XMS_ITS | Encounter Summary ---
Author Organization [facility] Address [address] [place] [address] Care Team Providers Care Experimental Flight Test Mechanic Name Role Phone Caitlyn Bowie MD Primary Care Provider +1- [phone] Encounter Details Date Type Department Care Team (Late st Contact Info) Description 06/27/2022 Scanned Document INTERFACE DEFAULT [address] [place] [address] System, Provider Not In Social History Tobacco [...] Description 09/30/2024 8:30 PM EDT Procedure visit [facility] [address] [place] [address] [address] [place] [address] 10/31/2024 1:00 PM EDT [facility] 240 [facility] Building [address] [place] [address] Ronald [place] MD 240 [facility] A1 [place] [address] documented as of this encounter Procedures Procedure [...] as of this encounter Care Teams Experimental Flight Test Mechanic Relationship Specialty Start Date End Date Caitlyn Bowie MD [facility] [address] [address] PCP - General Internal Medicine 05/06/21 documented as of this encounter
--- OUTSIDE RECORDS SUMMARY | 2024-09-11 11:33 | XMS_ITS | Encounter Summary ---
Author Organization [facility] Address [address] [place] [address] Care Team Providers Care Preschool Substitute Teacher Name Role Phone Caitlyn Bowie MD Primary Care Provider +1- [phone] Encounter Details Date Type Department Care Team (Late st Contact Info) Description 06/08/2022 Scanned Document INTERFACE DEFAULT [address] [place] [address] System, Provider Not In Social History Tobacco [...] 09/30/2024 8:30 PM EDT Procedure visit [facility] [address] [place] [address] [address] [place] [address] 10/31/2024 1:00 PM EDT [facility] 240 [facility] [address] [place] [address] Ronald [place] MD 240 [facility] A1 [place] [address] documented as of this encounter Procedures Procedure [...] documented as of this encounter Care Teams Preschool Substitute Teacher Relationship Specialty Start Date End Date Caitlyn Bowie MD [address] [address] PCP - General Internal Medicine 05/06/21 documented as of this encounter
--- OUTSIDE RECORDS SUMMARY | 2024-09-11 11:33 | XMS_ITS | Encounter Summary ---
Author Organization [facility] Address [address] [place] [address] Care Team Providers Care Home Therapy Teacher Name Role Phone Caitlyn Bowie MD Primary Care Provider +1- [phone] Encounter Details Date Type Department Care Team (Late st Contact Info) Description 12/06/2018 Scanned Document [facility] Health Information Management [address] [place] [address] External, Provider Social History Tobacco Use Types [...] Description 09/30/2024 8:30 PM EDT Procedure visit [facility] [address] [place] [address] [address] [place] [address] 10/31/2024 1:00 PM EDT Telemedicine [facility] at [facility] 240 [facility] Building [address] [place], [place] [phone] Ronald [place] MD 240 [facility] A1 [place] [address] documented as of this encounter [...] documented as of this encounter Care Teams Home Therapy Teacher Relationship Specialty Start Date End Date Caitlyn Bowie MD 3400 [facility] 1 [place] [address] PCP - General Internal Medicine 05/06/21 Henry Kelly MD Pulmonary Department [address] [place] [address], [address] [place] [address] Physician Pulmonary Disease 09/06/17 06/22/20 documented as of this encounter
--- OUTSIDE RECORDS SUMMARY | 2024-09-11 11:34 | XMS_ITS | Encounter Summary ---
Author Organization [facility] Address [address] [place] [address] Care Team Providers Care Supervisor Pairing And Inspecting Name Role Phone Caitlyn Bowie MD Primary Care Provider +1- [phone] Encounter Details Date Type Department Care Team (Late st Contact Info) Description 04/25/2022 Scanned Document INTERFACE DEFAULT [address] [place] [address] System, Provider Not In Social History Tobacco [...] Description 09/30/2024 8:30 PM EDT Procedure visit [facility] [address] [place] [address] [address] [place] [address] 10/31/2024 1:00 PM EDT [facility] 240 [facility] [address] [place] [address] Ronald [place] MD 240 [facility] A1 [place] [address] documented as of this encounter Visit Diagnoses Not on filedocumented in this encounter Additional Health Concerns Assessment Noted Time PHQ-9 Depression Total Score: 2 11/07/19 19 2:06 PM EDT documented as of this encounter Care Teams Supervisor Pairing And Inspecting Relationship Specialty Start Date End Date Caitlyn Bowie MD [address] [address] PCP - General Internal Medicine 05/06/21 documented as of this encounter
--- OUTSIDE RECORDS SUMMARY | 2024-09-11 11:34 | XMS_ITS | Encounter Summary ---
Author Organization [facility] Address [address] [place] [address] Care Team Providers Care Top Carrier Name Role Phone Caitlyn Bowie MD Primary Care Provider +1- [phone] Encounter Details Date Type Department Care Team (Late st Contact Info) Description 08/21/2017 Scanned Document [facility] Health Information Management [address] [place] [address] External, Provider Social History Tobacco Use Types [...] Description 09/30/2024 8:30 PM EDT Procedure visit [facility] [address] [place] [address] [address] [place] [address] 10/31/2024 1:00 PM EDT [facility] 240 [facility] Building [address] [place], [place] [address] Ronald [place] MD 240 [facility] A1 [place] [address] documented as of this encounter [...] as of this encounter Care Teams Top Carrier Relationship Specialty Start Date End Date Caitlyn Bowie MD 3400 [facility] 1 [place] [address] PCP - General Internal Medicine 05/06/21 Henry Kelly MD Pulmonary Department 175 [facility], [address] [place] [address] Physician Pulmonary Disease 09/06/17 06/22/20 documented as of this encounter
--- OUTSIDE RECORDS SUMMARY | 2024-09-11 11:34 | XMS_ITS | Encounter Summary ---
Author Organization [facility] Address [address] [place] [address] Care Team Providers Care Arts Education Teacher Name Role Phone Caitlyn Bowie MD Primary Care Provider +1- [phone] Encounter Details Date Type Department Care Team (Late st Contact Info) Description 03/02/2022 Scanned Document [facility] Health Information Management [address] [place] [address] External, Provider Social History Tobacco Use Types [...] Description 09/30/2024 8:30 PM EDT Procedure visit [facility] [address] [place] [address] [address] [place] [address] 10/31/2024 1:00 PM EDT [facility] 240 [facility] [address] [place] [address] Ronald [place] MD 240 [facility] A1 [place] [address] documented as of this encounter Visit Diagnoses Not on filedocumented in this encounter Additional Health Concerns Infection Onset Date Last Indicated Resolved Time COVID-19 03/05/2022 03/05/2022 03/15/2022 7:18 PM EDT Assessment Noted Time PHQ-9 Depression Total Score: 2 11/07/19 19 2:06 PM EDT documented as of this encounter Care Teams Arts Education Teacher Relationship Specialty Start Date End Date Caitlyn Bowie MD [address] [address] PCP - General Internal Medicine 05/06/21 documented as of this encounter
--- OUTSIDE RECORDS SUMMARY | 2024-09-11 11:34 | XMS_ITS | Encounter Summary ---
Author Organization [facility] Address [address] [place] [address] Care Team Providers Care Joint Yarner Name Role Phone Caitlyn Bowie MD Primary Care Provider +1- [phone] Encounter Details Date Type Department Care Team (Late st Contact Info) Description 03/20/2023 Scanned Document [facility] Radiology [address] [place] [address] Caitlyn Bowie MD [address]00 [place] [address] Social History Tobacco Use Types Packs/Day Years [...] on filedocumented in this encounter Care Teams Joint Yarner Relationship Specialty Start Date End Date Caitlyn Bowie MD 3400 [place] [address] PCP - General Internal Medicine 03/20/23 documented as of this encounter
--- OUTSIDE RECORDS SUMMARY | 2024-09-11 11:34 | XMS_ITS | Encounter Summary ---
Author Organization [facility] Address [address] [place] [address] Care Team Providers Care Shift Superintendent Name Role Phone Pcp, No Primary Care Provider Brennan Mario MD Primary Care Provider [phone] Caitlyn Bowie MD Primary Care Provider +1- [phone] Encounter Details Date Type Department Care Team (Late st Contact Info) Description 01/04/2022 Scanned Document [facility] Neurology Ophthalmology [address] [address] Yary Whitten DO [address] [place] [address] Social History Tobacco Use Types Packs/Day [...] on filedocumented in this encounter Care Teams Shift Superintendent Relationship Specialty Start Date End Date Pcp, No PCP - General General Medicine 10/04/21 07/18/22 Brennan Burnett MD [address] [place] [address] PCP - General 07/19/22 03/19/23 Caitlyn Bowie MD 3400 [place] [address] PCP - General Internal Medicine 03/20/23 documented as of this encounter
--- OUTSIDE RECORDS SUMMARY | 2024-09-11 11:34 | XMS_ITS | Encounter Summary ---
Author Organization [facility] Address [address] [place] [address] Care Team Providers Care Underground Mining Section Foreman Name Role Phone Caitlyn Bowie MD Primary Care Provider +1- [phone] Encounter Details Date Type Department Care Team (Late st Contact Info) Description 12/29/2021 Telephone [facility] at [address] - [address] [address] Ronald [place] MD [address] [place] [address] Social History Tobacco Use Types Packs/Day [...] not sure where the blood's coming from. [phone] documented in this encounter Plan of Treatment Upcoming Encounters Date Type Department Care Team (Late st Contact Info) Description 09/30/2024 8:30 PM EDT Procedure visit [facility] [address] [place] [address] [address] [place] [address] 10/31/2024 1:00 PM EDT [facility] 240 [facility] [address] [place], [place] [address] Ronald [place] MD 240 [facility] A1 [place] [address] documented as of this encounter Visit Diagnoses Not on filedocumented in this encounter Additional Health Concerns Infection Onset Date Last Indicated Resolved Time COVID-19 03/05/2022 03/05/2022 03/15/2022 7:18 PM EDT Assessment Noted Time PHQ-9 Depression Total Score: 2 11/07/19 19 2:06 PM EDT documented as of this encounter Care Teams Underground Mining Section Foreman Relationship Specialty Start Date End Date Caitlyn Bowie MD [address] [address] PCP - General Internal Medicine 05/06/21 documented as of this encounter
--- OUTSIDE RECORDS SUMMARY | 2024-09-11 11:34 | XMS_ITS | Encounter Summary ---
Author Organization [facility] Address [address] [place] [address] Care Team Providers Care Manager Presentation Name Role Phone Caitlyn Bowie MD Primary Care Provider +1- [phone] Encounter Details Date Type Department Care Team (Late st Contact Info) Description 12/01/2015 Scanned Document [facility] Health Information Management [address] [place] [address] External, Provider Social History Tobacco Use Types [...] EDT Procedure visit [facility] [address] [place] [address] [address] [place] [address] 10/31/2024 1:00 PM EDT [facility]medicine [facility] 240 [facility] Building [address] [place], [place] [address] Ronald [place] MD 240 [facility] A1 [place] [address] documented as of this encounter Procedures Procedure Name Priority Date/Time Associated Diagnosis Comments CT RESULT SCAN Routine 12/01/2015 documented in this encounter Results * CT Result Scan (12/01/2015) us Provider External IMG SCAN REPORTS Edited Result - Final [facility] [place], [place], [facility] documented in this encounter Visit Diagnoses Not on filedocumented in this encounter Additional Health Concerns Infection Onset Date Last Indicated Resolved Time COVID-19 03/05/2022 03/05/2022 03/15/2022 7:18 PM EDT documented as of this encounter Care Teams Manager Presentation Relationship Specialty Start Date End Date Caitlyn Bowie MD 3400 [facility] 1 [place] [address] PCP - General Internal Medicine 05/06/21 Henry Kelly MD Pulmonary Department 175 [facility], [address] [place] [address] Physician Pulmonary Disease 09/06/17 06/22/20 documented as of this encounter
--- OUTSIDE RECORDS SUMMARY | 2024-09-11 11:34 | XMS_ITS | Encounter Summary ---
Author Organization [facility] Address [address] [place] [address] Care Team Providers Care Fruit Dryer Name Role Phone Caitlyn Bowie MD Primary Care Provider +1- [phone] Encounter Details Date Type Department Care Team (Late st Contact Info) Description 04/22/2021 Scanned Document INTERFACE DEFAULT [address] [place] [address] System, Provider Not In Social History Tobacco [...] Description 09/30/2024 8:30 PM EDT Procedure visit [facility] [address] [place] [address] [address] [place] [address] 10/31/2024 1:00 PM EDT [facility]medicine [facility] 240 [facility] Building [address] [place] [address] Ronald [place] MD 240 [facility] A1 [place] [address] documented as of this encounter [...] as of this encounter Care Teams Fruit Dryer Relationship Specialty Start Date End Date Caitlyn Bowie MD [address] [address] PCP - General Internal Medicine 05/06/21 documented as of this encounter
--- OUTSIDE RECORDS SUMMARY | 2024-09-11 11:34 | XMS_ITS | Encounter Summary ---
Author Organization [facility] Address [address] [place] [address] Care Team Providers Care Carpenter Form Name Role Phone Caitlyn Bowie MD Primary Care Provider +1- [phone] Encounter Details Date Type Department Care Team (Late st Contact Info) Description 11/04/2015 Scanned Document [facility] Health Information Management [address] [place] [address] External, Provider Social History Tobacco Use Types [...] Description 09/30/2024 8:30 PM EDT Procedure visit [facility] [address] [place] [address] [address] [place] [address] 10/31/2024 1:00 PM EDT [facility]icine [facility] 240 [facility] Building [address] [place], [place] [address] Ronald [place] MD 240 [facility] A1 [place] [address] documented as of this encounter Procedures Procedure Name Priority Date/Time Associated Diagnosis Comments NUC MED/PET RESULT SCAN Routine 11/04/2015 documented in this encounter Results * Nuc Med/PET Result Scan (11/04/2015) us Provider External IMG SCAN REPORTS Edited Result - Final [facility] documented in this encounter Visit Diagnoses Not on filedocumented in this encounter Additional Health Concerns Infection Onset Date Last Indicated Resolved Time COVID-19 03/05/2022 03/05/2022 03/15/2022 7:18 PM EDT documented as of this encounter Care Teams Carpenter Form Relationship Specialty Start Date End Date Caitlyn Bowie MD 3400 [facility] 1 [place] [address] PCP - General Internal Medicine 05/06/21 Henry Kelly MD Pulmonary Department 175 [facility], [address] [place] [address] Physician Pulmonary Disease 09/06/17 06/22/20 documented as of this encounter
--- OUTSIDE RECORDS SUMMARY | 2024-09-11 11:34 | XMS_ITS | Encounter Summary ---
Author Organization [facility] Address [address] [place] [address] Care Team Providers Care Hansard Reporter Name Role Phone Caitlyn Bowie MD Primary Care Provider +1- [phone] Encounter Details Date Type Department Care Team (Late st Contact Info) Description 01/08/2022 Scanned Document INTERFACE DEFAULT [address] [place] [address] System, Provider Not In Social History Tobacco [...] Description 09/30/2024 8:30 PM EDT Procedure visit [facility] [address] [place] [address] [address] [place] [address] 10/31/2024 1:00 PM EDT [facility] 240 [facility] [address] [place] [address] Ronald [place] MD 240 [facility] A1 [place] [address] documented as of this encounter Procedures Procedure [...] documented as of this encounter Care Teams Hansard Reporter Relationship Specialty Start Date End Date Caitlyn Bowie MD [facility] [address] [address] PCP - General Internal Medicine 05/06/21 documented as of this encounter
--- OUTSIDE RECORDS SUMMARY | 2024-09-11 11:34 | XMS_ITS | Encounter Summary ---
Author Organization [facility] Address [address] [place] [address] Care Team Providers Care Spool Hauler Name Role Phone Caitlyn Bowie MD Primary Care Provider +1- [phone] Encounter Details Date Type Department Care Team (Late st Contact Info) Description 04/21/2021 Scanned Document INTERFACE DEFAULT [address] [place] [address] System, Provider Not In Social History Tobacco [...] Description 09/30/2024 8:30 PM EDT Procedure visit [facility] [address] [place] [address] [address] [place] [address] 10/31/2024 1:00 PM EDT [facility] 240 [facility] Building [address] [place] [address] Ronald [place] MD 240 [facility] A1 [place] [address] documented as of this encounter Procedures Procedure [...] documented as of this encounter Care Teams Spool Hauler Relationship Specialty Start Date End Date Caitlyn Bowie MD [address] [address] PCP - General Internal Medicine 05/06/21 documented as of this encounter
--- OUTSIDE RECORDS SUMMARY | 2024-09-11 11:34 | XMS_ITS | Patient Health Record ---
Author Organization [facility] Address [address] [facility] [address] [facility] [address] [place] [address] Care Team Providers Care Teenage Program Director Name Role Phone EVELIN RAMSAY Primary Care Provider Yenny Hou Unavailable [phone] Allergies Allergen (clinical drug ingredient) Drug/Non Drug [...] NEG UROBILINOGEN NEG BILIRUBIN NEG BLOOD NEG Urinalysis Reviewed date:05/03/2024 04:40:26 PM Interpretation: Performing Lab: Notes/Report: NITRITE Neg PH 6.0 PROTEIN Neg S.G 1.010 WBC Neg GLUCOSE Neg KETONES Neg UROBILINOGEN Neg BILIRUBIN Neg BLOOD Neg Urinalysis, Complete-[id number] Reviewed date:05/04/2024 11:35:42 PM Interpretation: Performing Lab:[facility], [address] [place] [address], Phone - [phone], Director - Arely Notes/Report: Specific [place] 1.009 1.005-1.030 pH 6.5 5.0-7.5 Urine-Color Yellow [...] Bacteria None seen None seen/Few Urine Culture, Routine-[id number] Reviewed date:05/04/2024 11:35:22 PM Interpretation: Performing Lab:[facility], [address] [place] [address], Phone - [phone], Director - Arely Notes/Report: Urine Culture, Routine Final report Result 1 Culture shows less than 10,000 colony forming units of bacteria per milliliter of urine. This colony count is not generally considered to be clinically significant. PDF Report Reviewed date:05/04/2024 11:35:04 PM Interpretation: Performing Lab:[facility], [address] [place] [address], Phone - [phone], Director - Arely Notes/Report: Reason For Referral No Information Medications [...] Synthroid 25MCG 1 ORAL daily for -3 [facility] 06/10/2014 Active ZyrTEC Allergy 10MG 1 [...] 1 ORAL at bedtime fo r -3 [facility] 06/10/2014 Active Meclizine HCl 25 MG 1 tablet as needed Orally [facility] 06/10/2014 Active Albuterol Sulfate (2.5 MG/3ML)0.083% Inhalation 4 x a day prn 06/10/2014 Active Valium 5MG 1 tablet as needed O RAL at bedtime, 1/2 tab prn during the day [facility] 06/10/2014 Active Social History Tobacco Use: [...] Status Risk Notes Problem Postmenopausal atrophic vaginitis (73461277) Postmenopausal atrophic vaginitis (N95.2) Active confirmed Problem Age-related osteoporosis (883362555) Age-related osteoporosis without current pathological fracture (M81.0) Active confirmed Problem Urgent desire to urinate (18609266) Urgency of urination (R39.15) Active confirmed 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 Problem Chronic systolic heart failure (125169041) Chronic systolic (congestive) heart failure (I50.22) Active confirmed Problem Chronic obstructive pulmonary disease (97142000) Chronic obstructive pulmonary disease, unspecified (J44.9) Active confirmed Problem Functional urinary incontinence (428159848) Functional 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) Active confirmed Problem Personal history of primary malignant neoplasm of bronchus (934133484) 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) Active confirmed Vital Signs Temperature 97.7 degrees Fahrenheit 07/18/2024 Blood pressure diastolic 62 mm Hg 07/18/2024 Height 63 in 07/18/2024 Blood pressure systolic 102 mm Hg 07/18/2024 Weight 126 lbs 07/18/2024 BMI 22.32 kg/m2 07/18/2024 Encounters Encounter Location Date Provider Diagnosis Total [address] [address] 05/03/2024 Yenny Elizalde Urgency of urination R39.15 and Abscess of vulva N76.[address] [address] 05/10/2024 Yenny Elizalde Abscess of vulva N76 .[address] [address] 05/17/2024 Yenny Elizalde Abscess of vulva N76 .[address] [address] 07/09/2024 Yenny Elizalde Urgency of urination R39.15 ; Acute vaginitis N76.0 and Postmenopausal atrophic vaginitis N95.[address] [address] 07/18/2024 Yennydorothy Lovettva Encounter for screening mammogram for malignant neoplasm of breast Z12.31 and Mastodynia N64.[address] [address] 05/10/2024 Yenny Elizalde Total [address] [address] 05/13/2024 Yenny Elizalde Total [address] [place] [address] 06/11/2024 Yenny Roweueva Assessments Encounter Date Diagnosis [...] [facility] AND DISCUSSED THIS PAT. [...] Date MEDICARE [address] VEDA NIEVES [id number] CINDA WATSON Self - patient is the insured [employer] [address] [place] [address] [phone] [id number] 3 CINDA WATSON Self - patient is [...]
--- OUTSIDE RECORDS SUMMARY | 2024-09-11 11:34 | XMS_ITS | Encounter Summary ---
Author Organization [facility] and [facility] Address [address] [place] [address] Care Team Providers Care Information Technology Teacher Name Role Phone Caitlyn Bowie MD Primary Care Provider +1- [phone] Encounter Details Date Type Department Care Team (Late st Contact Info) Description 04/22/2022 Scanned Document INTERFACE DEFAULT [address] [place] [address] System, Provider Not In Social History Tobacco [...] Description 09/30/2024 8:30 PM EDT Procedure visit [facility] [address] [place] [address] [address] [place] [address] 10/31/2024 1:00 PM EDT Telemedicine [facility] at [facility] [address] [facility] [address] [place] [address] Ronald Mills MD 240 [facility] [place] [address] [place] [address] documented as of this encounter Procedures Procedure [...] of this encounter Care Teams Information Technology Teacher Relationship Specialty Start Date End Date Caitlyn Bowie MD [address] [address] PCP - General Internal Medicine 05/06/21 documented as of this encounter
--- OUTSIDE RECORDS SUMMARY | 2024-09-11 11:34 | XMS_ITS | Encounter Summary ---
Author Organization [facility] Address [address] [place] [address] Care Team Providers Care Dehydration Plant Operator Name Role Phone Caitlyn Bowie MD Primary Care Provider +1- [phone] Encounter Details Date Type Department Care Team (Late st Contact Info) Description 06/07/2017 Scanned Document [facility] Health Information Management [address] [place] [address] External, Provider Social History Tobacco Use Types [...] Description 09/30/2024 8:30 PM EDT Procedure visit [facility] [address] [place] [address] [address] [place] [address] 10/31/2024 1:00 PM EDT Telemedicine Cancer Center at [facility] [address] [facility] [address] [place], [place] [phone] Ronald Mills MD 240 [facility] [address] [place] [address] documented as of this encounter [...] documented as of this encounter Care Teams Dehydration Plant Operator Relationship Specialty Start Date End Date Caitlyn Bowie MD 3400 [facility] 1 [place] [address] PCP - General Internal Medicine 05/06/21 Henry Kelly MD Pulmonary Department [address] [facility] [place] [address] Physician Pulmonary Disease 09/06/17 06/22/20 documented as of this encounter
--- OUTSIDE RECORDS SUMMARY | 2024-09-11 11:34 | XMS_ITS | Encounter Summary ---
Author Organization [facility] and [facility] Address [address] [place] [address] Care Team Providers Care Textile Machine Mechanic Name Role Phone Caitlyn Bowie MD Primary Care Provider +1- [phone] Encounter Details Date Type Department Care Team (Late st Contact Info) Description 04/16/2022 Scanned Document INTERFACE DEFAULT [address] [place] [address] System, Provider Not In Social History Tobacco [...] Description 09/30/2024 8:30 PM EDT Procedure visit [facility] [address] [place] [address] [address] [place] [address] 10/31/2024 1:00 PM EDT Telemedicine [facility] at [facility] [address] [facility] [address] [place] [address] Ronald Mills MD 240 [facility] [address] [place] [address] documented as of this encounter [...] documented as of this encounter Care Teams Textile Machine Mechanic Relationship Specialty Start Date End Date Caitlyn Bowie MD [address] [address] PCP - General Internal Medicine 05/06/21 documented as of this encounter
--- OUTSIDE RECORDS SUMMARY | 2024-09-11 11:34 | XMS_ITS | Clinical Summary ---
Author Organization [address] Address 20 [place] [address] Phone Care Team Providers Care Security Flex Officer Name Role Phone Caitlyn Bowie MD Primary Care Provider +1- [phone] Allergies Active Allergy Reactions Criticality Noted Date [...] Type Department Care Team Description 08/30/2024 Abstract [facility] [address] [place] [phone] Adalgisa Whitney MD 07/15/2024 Telephone [facility] at [address] [address] Ronald Mills MD Triage from Last 3 [...] Description 09/30/2024 8:30 PM EDT Procedure visit [facility] [address] [place] [address] [address] [place] [address] 10/31/2024 1:00 PM EDT Telemedicine Cancer Center at [facility] [address] [facility] [address] [place], [place] [address] Ronald Mills MD 240 [facility] [address] [place] [address] Health Maintenance Due Date Last Done Comments [...] - 144 mmol/L 04/05/2022 1:43 PM EDT [facility] DEPARTMENT OF LABORATORY MEDICINE [facility] Potassium 4.7 3.3 - 5.3 mmol/L 04/05/2022 1:43 PM EDT [facility] DEPARTMENT OF LABORATORY MEDICINE [facility] Chloride 100 98 - 107 mmol/L 04/05/2022 1:43 PM EDT [facility] DEPARTMENT OF LABORATORY MEDICINE [facility] CO2 30 20 - 30 mmol/L 04/05/2022 1:43 PM EDT [facility] DEPARTMENT OF LABORATORY MEDICINE [facility] Anion Gap 8 7 - 17 04/05/2022 1:43 PM EDT [facility] DEPARTMENT OF LABORATORY MEDICINE [facility] Glucose 115(H) 70 - 100 mg/dL 04/05/2022 1:43 PM EDT [facility] DEPARTMENT OF LABORATORY MEDICINE [facility] BUN 16 8 - 23 mg/dL 04/05/2022 1:43 PM EDT [facility] Creatinine 0.89 0.40 - 1.30 mg/dL 04/05/2022 1:43 PM EDT [facility]PART[facility]ATORY [facility] Calcium 10.5(H) 8.8 - 10.2 mg/dL 04/05/2022 1:43 PM EDT [facility] DEPARTMENT OF LABORATORY MEDICINE [facility] BUN/Creatinine Ratio 18.0 8.0 - 23.0 03/11 1:43 PM EDT [facility] DEPARTMENT OF LABORATORY MEDIC[facility] Total Protein 7.0 6.6 - 8.7 g/dL 04/05/2022 1:43 PM EDT [facility] DEPARTMENT [facility] LABORATORY MED[facility] Albumin 4.2 3.6 - 4.9 g/dL 04/05/2022 1:43 PM EDT [facility] DEPARTMENT OF LABORATORY MEDICINE [facility] Total Bilirubin 0.6 <=1.2 mg/dL 04/05/2022 1:43 PM EDT [facility] DEPARTMENT OF LABORATORY MEDICINE [facility] Alkaline Phosphatase 58 9 - 122 U/L 04/05/2022 1:43 PM T [facility] DEPARTMENT OF LABORATORY MEDICINE [facility] Alanine Aminotransferase (ALT) 19 10 - 35 U/L 04/05/2022 1:43 PM EDT [facility] DEPARTMENT OF LABORATORY MEDICINE [facility] Comment:Calcium dobesilate c an cause artificially low ALT results at therapeutic concentrations Aspartate Aminotransferase (AST) 26 10 - 35 U/L 04/05/2022 1:43 PM EDT [facility] DEPARTMENT OF LABORATORY MEDICINE [facility] Globulin 2.8 2.3 - 3.5 g/dL 04/05/2022 1:43 PM EDT [facility] DEPARTMENT OF LABORATORY MEDICINE [facility] A/G Ratio 1.5 1.0 - 2.2 04/05/2022 1:43 PM EDT [facility] DEPARTMENT OF LABORATORY MEDICINE - [facility] AST/ALT Ratio 1.4 See Comment 04/05/2022 1:43 PM EDT [facility] DEPARTMENT OF LABORATORY MEDICINE [facility] Comment: Adult with mild elevations of transaminases (< 5 times upper limit of normal): AST/ALT > 2 suggests alcoholic liver injury AST/ALT < 1 suggests non-alcoholic fatty liver disease (NAFLD) Delta (healthy): AST/ALT can be > 3 on day 0 AST/ALT < 2 by day 5 The thresholds provided focus on the most common etiologies of elevated serum transaminase levels and the associated alteration of AST:ALT ratios; they are not intended to exclude other feasible and clinically appropriate possibilities eGFR (Creatinine) >60 >=60 mL/min/1.7 3m2 04/05/2022 1:43 PM EDT [facility] DEPARTMENT OF LABORATORY MEDICINE [facility] Comment:Estimated glomerular filtration rate (eGFR) was [...] MD LAB BLOOD ORDERABLES Final Resul t [facility] DEPARTMENT OF LABORATORY MEDICINE [facility] [address] [place] [address] * Bone Density Result Scan (05/10/2017) us Historical Provider IMG SCAN REPORTS Final Resul t * (ABNORMAL) Lipid panel (03/18/2016 2:55 PM EDT) Cholesterol 229(H) 115 - 199 mg/dL 03/18/2016 8:11 PM EDT [facility] HDL 83 >=40 mg/dL 03/18/2016 8:11 PM EDT [facility] Triglycerides 71 30 - 150 mg/dL 03/18/2016 8:11 PM EDT [facility] Chol/HDL Ratio 2.8 <=5 03/18/2016 8:11 PM EDT [facility] Comment:Cholesterol/HDL rati o cannot be calculated. LDL Calculated 132 See Comment mg/dL 03/18/2016 8:11 PM EDT [facility] Comment: <100: Optimal 100-129: Near optimal/above optimal 130-159: Borderline high risk 160-189: High risk ??>=190: Very high risk Blood specimen (specimen) Venipuncture / Unknown 03/18/2016 2:55 PM EDT 03/18/2016 3:17 PM EDT Narrative [facility] - 03/18/2016 8:11 PM EDT $18.27 us Sangeeta Garces MD LAB BLOOD ORDERABLES Fin al Result Performing Organization Address [facility]/State/[facility] Co de Phone Number [facility] [address] [place] [address] * MAMMOGRAPHY REPORT (04/25/2013 6:47 AM EDT) 04/25/2013 6:47 AM EDT us Provider Not In System IMG SCAN REPORTS Final Re sult from Last 3 Months or Most Recently Relevant to Health Maintenance Insurance MEDICARE [facility] MEDICARE [facility] MEDICARE [facility] MEDICARE MEDICARE BCBS Advance Directives * Full ACLS (Latest Code Status on File) Date Activated Date Inactivated Comments 12/15/2018 7:13 PM 12/16/2018 6:09 PM * Full Interventions Date Activated Date Inactivated Comments 03/18/2016 6:34 PM 03/19/2016 6:40 PM Care Teams Security Flex Officer Relationship Specialty Start Date End Date Caitlyn Bowie MD [address] [address] PCP - General Internal Medicine 05/06/21
--- OUTSIDE RECORDS SUMMARY | 2024-09-11 11:34 | XMS_ITS | Encounter Summary ---
Author Organization [facility] Address [address] [place] [address] Care Team Providers Care Snack Steward Name Role Phone Caitlyn Bowie MD Primary Care Provider +1- [phone] Encounter Details Date Type Department Care Team (Late st Contact Info) Description 12/03/2015 Scanned Document [facility] Health Information Management [address] [place] [address] External, Provider Social History Tobacco Use Types [...] Procedure visit [facility] [address] [place] [address] [address] [place] [address] 10/31/2024 1:00 PM EDT Telemedicine [facility] [address] [facility] [address] [place], [place] [address] Ronald Mills MD 240 [facility] [address] [place] [address] documented as of this encounter Procedures Procedure Name Priority Date/Time Associated Diagnosis Comments LAB SCAN Routine 12/03/2015 documented in this encounter Results * Lab Scan (12/03/2015) Blood specimen (specimen) us Provider External LAB BLOOD ORDERABLES Edited Re sult - Final [facility] [place], [place], [facility] [[email or web address]] documented in this encounter Visit Diagnoses Not on filedocumented in this encounter Additional Health Concerns Infection Onset Date Last Indicated Resolved Time COVID-19 03/05/2022 03/05/2022 03/15/2022 7:18 PM EDT documented as of this encounter Care Teams Snack Steward Relationship Specialty Start Date End Date Caitlyn Bowie MD 3400 [facility] 1 [place] [address] PCP - General Internal Medicine 05/06/21 Henry Kelly MD Pulmonary Department 175 [facility] [place] [address] Physician Pulmonary Disease 09/06/17 06/22/20 documented as of this encounter
--- OUTSIDE RECORDS SUMMARY | 2024-09-11 11:34 | XMS_ITS | Encounter Summary ---
Author Organization [facility] Address [address] [place] [address] Care Team Providers Care Air Conditioning Equipment Mechanic Name Role Phone Caitlyn Bowie MD Primary Care Provider +1- [phone] Encounter Details Date Type Department Care Team (Late st Contact Info) Description 08/09/2017 Scanned Document Cardiovascular Medicine at [address] [address] System, Provider Not In Social History Tobacco [...] Description 09/30/2024 8:30 PM EDT Procedure visit [facility] [address] [place] [address] [address] [place] [phone] 10/31/2024 1:00 PM EDT Telemedicine Cancer Center at [address] [place], [place] [phone] Ronald Mills MD [address] [place] [address] [address] [place] [address] documented as of this encounter [...] as of this encounter Care Teams Air Conditioning Equipment Mechanic Relationship Specialty Start Date End Date Caitlyn Bowie MD 3400 [facility] 1 [place] [address] PCP - General Internal Medicine 05/06/21 Henry Kelly MD Pulmonary Department 175 [facility], [address] [place] [address] Physician Pulmonary Disease 09/06/17 06/22/20 documented as of this encounter
--- OUTSIDE RECORDS SUMMARY | 2024-09-11 11:34 | XMS_ITS | Encounter Summary ---
Author Organization [facility] Address [address] [place] [address] Care Team Providers Care Multicultural Services Librarian Name Role Phone Caitlyn Bowie MD Primary Care Provider +1- [phone] Encounter Details Date Type Department Care Team (Late st Contact Info) Description 04/11/2019 Scanned Document [facility] Health Information Management [address] [place] [address] External, Provider Social History Tobacco Use Types [...] Description 09/30/2024 8:30 PM EDT Procedure visit [facility] [address] [place] [address] [address] [place] [address] 10/31/2024 1:00 PM EDT Telemedicine [facility] 240 [facility] [address] [place] [address] Rnoald Mills MD 240 [facility] [address] [place] [address] documented as of this encounter Procedures Procedure [...] documented as of this encounter Care Teams Multicultural Services Librarian Relationship Specialty Start Date End Date Caitlyn Bowie MD 3400 [facility] 1 [place] [address] PCP - General Internal Medicine 05/06/21 Henry Kelly MD Pulmonary Department 175 [facility], [address] [place] [address] Physician Pulmonary Disease 09/06/17 06/22/20 documented as of this encounter
--- OUTSIDE RECORDS SUMMARY | 2024-09-11 11:34 | XMS_ITS | Encounter Summary ---
Author Organization [facility] Address [address] [place] [address] Care Team Providers Care Butter Printer Name Role Phone Caitlyn Bowie MD Primary Care Provider +1- [phone] Encounter Details Date Type Department Care Team (Late st Contact Info) Description 04/22/2019 Scanned Document [facility] Health Information Management [address] [place] [address] External, Provider Social History Tobacco Use Types [...] Description 09/30/2024 8:30 PM EDT Procedure visit [facility] [address] [place] [address] [address] [place] [address] 10/31/2024 1:00 PM EDT Telemedicine [facility] at [facility] 240 [facility] [address] [place] [address] Ronald Mills MD 240 [facility] [address]1 [place] [address] documented as of this encounter Visit Diagnoses Not on filedocumented in this encounter Additional Health Concerns Infection Onset Date Last Indicated Resolved Time COVID-19 03/05/2022 03/05/2022 03/15/2022 7:18 PM EDT Assessment Noted Time PHQ-9 Depression Total Score: 2 11/07/19 19 2:06 PM EDT documented as of this encounter Care Teams Butter Printer Relationship Specialty Start Date End Date Caitlyn Bowie MD 3400 [facility] 1 [place] [address] PCP - General Internal Medicine 05/06/21 Henry Kelly MD Pulmonary Department [address] [place] [address], [address] [place] [address] Physician Pulmonary Disease 09/06/17 06/22/20 documented as of this encounter
--- OUTSIDE RECORDS SUMMARY | 2024-09-11 11:34 | XMS_ITS | Encounter Summary ---
Author Organization [facility] and [facility] Address [address] [place] [address] Care Team Providers Care Aerophysics Engineer Name Role Phone Caitlyn Boiwe MD Primary Care Provider +1- [phone] Encounter Details Date Type Department Care Team (Latest Contact Info) Description 12/25/2015 Transcribed Orders [facility] Draw Station [address] [facility] [place] [address] Osmel Briscoe MD Other abnormality of red [...] Description 09/30/2024 8:30 PM EDT Procedure visit [facility] [address] [place] [address] [address] [place] [address] 10/31/2024 1:00 PM EDT Telemedicine Cancer Center at [address] [place], [place] [address] Ronald Mills MD [address] [place] [address] documented as of this encounter Results * Free kappa lambda with ratio, serum ( GH Q YH) (12/25/2015 10:09 AM EDT) Ig [employer] Free Light Chain 1.84 0.33 - 1.94 mg/dL [facility] Ig Lambda Free Light Chain 1.96 0.57 - 2.63 mg/dL [facility] [employer]/Lambda FLC Ratio 0.94 0.26 - 1.65 [facility] Blood specimen (specimen) 12/25/2015 10:09 AM EDT Osmel Briscoe MD LAB BLOOD ORDERABLES Final R critical access hospital Performing Organization Address [facility] Co de Phone Number [facility] [address] [place] [phone] * Immunofixation, serum (GH L Q YH) (12/25/2015 10:09 AM EDT) Pathologist [facility] Immunofixation Electrophoresis Gel See below See Interp. [facility] Comment: INTERPRETATION: Normal immunofixation electrophoresis. No evidence of a serum monoclonal component. SIGNED BY:Keyur KAYE MD ON 12/29/2015 14:56:04 INTERPRETATION REVIEW : I have reviewed these results and agree with this interpretation. Blood specimen (specimen) 12/25/2015 10:09 AM EDT Osmel Briscoe MD LAB BLOOD ORDERABLES Final R esult Performing Organization Address City/[facility] Co de Phone Number [facility] [address] [place] [phone] * (ABNORMAL) Protein electrophoresis, serum ( GH L YH) (12/25/2015 10:09 AM EDT) Pathologist [facility] Albumin Electrophoresis 3.45(L) 3.50 - 4.70 g/dL [facility] Ynqkr-9-Tgllvnbm 0.16 0.10 - 0.30 g/dL [facility] Hekwi-5-Fukyjvnl 0.81 0.60 - 1.00 g/dL [facility] Beta Globulin 0.86 0.70 - 1.20 g/dL [facility] Gamma Globulin 0.92 0.70 - 1.50 g/dL [facility] SPEP Interpretation See below See Interp. [facility] Comment: INTERPRETATION: No discrete abnormal bands. [...] ORDERABLES Final R esult Performing Organization Address [facility] Co de Phone Number [facility] [address] [place] [address] * Reticulocytes (GH L Q YH) (12/25/2015 10:09 AM EDT) [facility] Reticulocyte Count 2.1 0.6 - 2.7 % [facility] Blood specimen (specimen) 12/25/2015 10:09 AM EDT Osmel Briscoe MD LAB BLOOD ORDERABLES Final R esult Performing Organization Address [facility] Co de Phone Number [facility] [address] [place] [phone] * (ABNORMAL) Sedimentation rate (ESR) (12/25/2015 10:09 AM EDT) [facility] Sed Rate 27(H) 0 - 20 mm/hr [facility] Blood specimen (specimen) 12/25/2015 10:09 AM EDT us Osmel Briscoe MD LAB BLOOD ORDERABLES Final R esult Performing Organization Address [facility] Co de Phone Number [facility] [address] [place] [address] * Ferritin (12/25/2015 10:09 AM EDT) Ferritin 68 9 - 120 ng/mL [facility] Blood specimen (specimen) 12/25/2015 10:09 AM EDT Osmel Briscoe MD LAB BLOOD ORDERABLES Final R esult Performing Organization Address [facility] de Phone Number [facility] [address] [place] [address] * Iron and TIBC (12/25/2015 10:09 AM EDT) Iron 110 50 - 170 ug/dL [facility] TIBC 290 250 - 450 ug/dL [facility] Iron Saturation 38 15 - 50 [facility] Blood specimen (specimen) 12/25/2015 10:09 AM EDT us Osmel Briscoe MD LAB BLOOD ORDERABLES Final R esult Performing Organization Address [facility] de Phone Number [facility] [address] [place] [address] * Vitamin D 25 hydroxy (BH L YH) (12/25/2015 10:09 AM EDT) Vit D, 25-Hydroxy 43 20 - 50 ng/mL [facility] Comment: A serum 25(OH) vitamin D [...] ORDERABLES Final R esult Performing Organization Address [facility] Co de Phone Number [facility] [address] [place] [address] * TSH ( L YH) (12/25/2015 10:09 AM EDT) TSH cancelled 0.3 - 4.2 uU/mL [facility] TSH 1.62 0.3 - 4.2 uU/mL [facility] Comment:This test is a third generation TSH assay. Blood specimen (specimen) 12/25/2015 10:09 AM EDT Osmel Briscoe MD LAB BLOOD ORDERABLES Final R esult Performing Organization Address [facility] Co de Phone Number [facility] [address] [place] [phone] * (ABNORMAL) CBC and differential (12/25/2015 10:09 AM EDT) CBC with Differential See Below [facility] WBC 9.9 4.0 - 10.0 x 1000/uL [facility] RBC 4.0 3.8 - 5.2 M/uL [facility] Hemoglobin 13.4 12.0 - 16.0 g/dL [facility] Hematocrit 41.0 37.0 - 47.0 % [facility] MCV 101(H) 78 - 94 fL [facility] MCH 33.2(H) 27.0 - 33.0 pg [facility] MCHC 32.8(L) 33.0 - 37.0 g/dL [facility] RDW 12.5 10.8 - 14.5 % [facility] Platelets 265 150 - 350 x 1000/uL [facility] MPV 7.2 6.0 - 10.0 fL [facility] Neutrophils 82(H) 38 - 71 % [facility] Lymphocytes 7(L) 14 - 46 % [facility] Monocytes 10 2 - 15 % [facility] Eosinophils 1 0 - 5 % [facility] Basophils 0 0 - 2 % [facility] ANC (Abs Neutrophil Count) 8.1 1.0 - 9.0 x 1000/uL [facility] Absolute Lymphocyte Count 0.7 0.6 - 4.6 x 1000/uL [facility] Blood specimen (specimen) ARM NEC / Unknown 12/25/2015 10:09 AM EDT us Osmel Briscoe MD LAB BLOOD ORDERABLES Final R esult Performing Organization Address City/State/[facility] Co de Phone Number [facility] [address] [place] [phone] documented in this encounter Visit Diagnoses Diagnosis [...] documented as of this encounter Care Teams Aerophysics Engineer Relationship Specialty Start Date End Date Caitlyn Bowie MD [address] [facility] 1 [place] [address] PCP - General Internal Medicine 05/06/21 Henry Kelly MD Pulmonary Department [address] [facility], [address] [place] [address] Physician Pulmonary Disease 09/06/17 06/22/20 documented as of this encounter
--- OUTSIDE RECORDS SUMMARY | 2024-09-11 11:34 | XMS_ITS | Encounter Summary ---
Author Organization [facility] and [facility] Address [address] [place] [address] Care Team Providers Care Tubular Stock Glass Bulb Machine Former Name Role Phone Caitlyn Bowie MD Primary Care Provider +1- [phone] Encounter Details Date Type Department Care Team (Late st Contact Info) Description 11/03/2015 Scanned Document [facility] Health Information Management [address] [place] [address] External, Provider Social History Tobacco Use Types [...] Description 09/30/2024 8:30 PM EDT Procedure visit [facility] [address] [place] [address] [address] [place] [address] 10/31/2024 1:00 PM EDT Telemedicine [facility] [address] [facility] [address] [place], [place] [address] Ronald Mills MD [address] [facility] [address]1 [place] [address] documented as of this encounter Procedures Procedure Name Priority Date/Time Associated Diagnosis Comments US RESULT SCAN Routine 11/03/2015 documented in this encounter Results * US Result Scan (11/03/2015) us Provider External IMG SCAN REPORTS Edited Result - Final [facility] documented in this encounter Visit Diagnoses Not on filedocumented in this encounter Additional Health Concerns Infection Onset Date Last Indicated Resolved Time COVID-19 03/05/2022 03/05/2022 03/15/2022 7:18 PM EDT documented as of this encounter Care Teams Tubular Stock Glass Bulb Machine Former Relationship Specialty Start Date End Date Caitlyn Bowie MD [address] [facility] 1 [place] [address] PCP - General Internal Medicine 05/06/21 Henry Kelly MD Pulmonary Department 175 [facility] [place] [address] Physician Pulmonary Disease 09/06/17 06/22/20 documented as of this encounter
--- OUTSIDE RECORDS SUMMARY | 2024-09-11 11:34 | XMS_ITS | Encounter Summary ---
Author Organization [facility] and [facility] Address [address] [place] [address] Care Team Providers Care Rn Orthopaedics Name Role Phone Caitlyn Bowie MD Primary Care Provider +1- [phone] Encounter Details Date Type Department Care Team (Late st Contact Info) Description 04/12/2022 Scanned Document [facility] Health Information Management [address] [place] [address] External, Provider Social History Tobacco Use Types [...] Description 09/30/2024 8:30 PM EDT Procedure visit [facility] [address] [place] [address] [address] [place] [address] 10/31/2024 1:00 PM EDT Telemedicine [facility] Center at [facility] 240 [facility] [address] [place] [address] Ronald Mills MD [address] [facility] [address]1 [place] [address] documented as of this encounter [...] as of this encounter Care Teams Rn Orthopaedics Relationship Specialty Start Date End Date Caitlyn Bowie MD [address] [place] [phone] PCP - General Internal Medicine 05/06/21 documented as of this encounter
--- OUTSIDE RECORDS SUMMARY | 2024-09-11 11:34 | XMS_ITS | Encounter Summary ---
Author Organization [facility] and [facility] Address [address] [place] [address] Care Team Providers Care Prawn Trawler Hand Name Role Phone Caitlyn Bowie MD Primary Care Provider +1- [phone] Encounter Details Date Type Department Care Team (Late st Contact Info) Description 04/12/2022 Scanned Document INTERFACE DEFAULT [address] [place] [address] System, Provider Not In Social History Tobacco [...] Description 09/30/2024 8:30 PM EDT Procedure visit [facility] [address] [place] [address] [address] [place] [address] 10/31/2024 1:00 PM EDT [facility]medicine [facility] [address] [facility] [address] [place] [address] Ronald Mills MD [address] [facility] A1 [place] [address] documented as of this encounter Procedures Procedure [...] documented as of this encounter Care Teams Prawn Trawler Hand Relationship Specialty Start Date End Date Caitlyn Bowie MD [address] [address] PCP - General Internal Medicine 05/06/21 documented as of this encounter
--- OUTSIDE RECORDS SUMMARY | 2024-09-11 11:34 | XMS_ITS | Encounter Summary ---
Author Organization [facility] and [facility] Address [address] [place] [address] Care Team Providers Care Instrument Worker Name Role Phone Caitlyn Bowie MD Primary Care Provider +1- [phone] Encounter Details Date Type Department Care Team (Late st Contact Info) Description 04/16/2021 Scanned Document INTERFACE DEFAULT [address] [place] [address] System, Provider Not In Social History Tobacco [...] Description 09/30/2024 8:30 PM EDT Procedure visit [facility] [address] [place] [address] [address] [place] [address] 10/31/2024 1:00 PM EDT Telemedicine [facility] at [facility] [address] [facility] [address] [place] [address] Ronald Mills MD [address] [employer] [address] [place] [address] documented as of this encounter [...] as of this encounter Care Teams Instrument Worker Relationship Specialty Start Date End Date Caitlyn Bowie MD [address] [address] PCP - General Internal Medicine 05/06/21 documented as of this encounter
--- OUTSIDE RECORDS SUMMARY | 2024-09-11 11:34 | XMS_ITS | Encounter Summary ---
Author Organization [facility] and [facility] Address [address] [place] [address] Care Team Providers Care Human Resources Benefits Administrator Name Role Phone Caitlyn Bowie MD Primary Care Provider +1- [phone] Encounter Details Date Type Department Care Team (Late st Contact Info) Description 04/18/2022 Scanned Document INTERFACE DEFAULT [address] [place] [address] System, Provider Not In Social History Tobacco [...] Description 09/30/2024 8:30 PM EDT Procedure visit [facility] [address] [place] [address] [address] [place] [address] 10/31/2024 1:00 PM EDT Telemedicine [facility] 240 [facility] Building [address] [place] [address] Ronald Mills MD 240 [facility] A1 [place] [address] documented as of this encounter Visit Diagnoses Not on filedocumented in this encounter Additional Health Concerns Assessment Noted Time PHQ-9 Depression Total Score: 2 11/07/19 19 2:06 PM EDT documented as of this encounter Care Teams Human Resources Benefits Administrator Relationship Specialty Start Date End Date Caitlyn Bowie MD [address] [address] PCP - General Internal Medicine 05/06/21 documented as of this encounter
--- OUTSIDE RECORDS SUMMARY | 2024-09-11 11:34 | XMS_ITS | Encounter Summary ---
Author Organization [facility] and [facility] Address [address] [place] [address] Care Team Providers Care And Taxi Instructor Bus Trolley Name Role Phone Caitlyn Bowie MD Primary Care Provider +1- [phone] Encounter Details Date Type Department Care Team (Late st Contact Info) Description 12/16/2015 Scanned Document [facility] Information Management [address] [place] [address] External, Provider Social History Tobacco Use Types [...] Description 09/30/2024 8:30 PM EDT Procedure visit [facility] [address] [place] [address] [address] [place] [address] 10/31/2024 1:00 PM EDT Telemedicine [facility] [address] [facility] [address] [place], [place] [address] Ronald Mills MD 240 [facility] A1 [place] [address] documented as of this encounter Procedures Procedure Name Priority Date/Time Associated Diagnosis Comments US RESULT SCAN Routine 12/16/2015 documented in this encounter Results * US Result Scan (12/16/2015) us Provider External IMG SCAN REPORTS Edited Result - Final [facility] documented in this encounter Visit Diagnoses Not on filedocumented in this encounter Additional Health Concerns Infection Onset Date Last Indicated Resolved Time COVID-19 03/05/2022 03/05/2022 03/15/2022 7:18 PM EDT documented as of this encounter Care Teams And Taxi Instructor Bus Trolley Relationship Specialty Start Date End Date Caitlyn Bowie MD 34[address] [facility] 1 [place] [address] PCP - General Internal Medicine 05/06/21 Henry Kelly MD Pulmonary Department 175 [facility], [address] [place] [address] Physician Pulmonary Disease 09/06/17 06/22/20 documented as of this encounter
--- OUTSIDE RECORDS SUMMARY | 2024-09-11 11:34 | XMS_ITS | Encounter Summary ---
Author Organization [facility] Address [address] [place] [address] Care Team Providers Care Gambling Counsellor Name Role Phone Caitlyn Bowie MD Primary Care Provider +1- [phone] Reason for Visit * Reason Comments Results Encounter Details Date Type Department Care Team (Late st Contact Info) Description 03/15/2022 Telephone [facility] at [address] [address] Ronald Mills MD [address] [place] [address] Results Social History Tobacco Use Types [...] Description 09/30/2024 8:30 PM EDT Procedure visit [facility] [address] [place] [address] [address] [place] [address] 10/31/2024 1:00 PM EDT Telemedicine [facility] Center at [facility] 240 [facility] [address] [place], [place] [address] Ronald Mills MD 240 [facility] A1 [place] [address] documented as of this encounter Visit Diagnoses Not on filedocumented in this encounter Additional Health Concerns Infection Onset Date Last Indicated Resolved Time COVID-19 03/05/2022 03/05/2022 03/15/2022 7:18 PM EDT Assessment Noted Time PHQ-9 Depression Total Score: 2 11/07/19 19 2:06 PM EDT documented as of this encounter Care Teams Gambling Counsellor Relationship Specialty Start Date End Date Caitlyn Bowie MD [address] [address] PCP - General Internal Medicine 05/06/21 documented as of this encounter
--- OUTSIDE RECORDS SUMMARY | 2024-09-11 11:34 | XMS_ITS | Encounter Summary ---
Author Organization [facility] and [facility] Address [address] [place] [address] Care Team Providers Care Director Water And Waste Services Name Role Phone Caitlyn Bowie MD Primary Care Provider +1- [phone] Encounter Details Date Type Department Care Team (Late st Contact Info) Description 05/02/2022 Scanned Document INTERFACE DEFAULT [address] [place] [address] System, Provider Not In Social History Tobacco [...] Description 09/30/2024 8:30 PM EDT Procedure visit [facility] [address] [place] [address] [address] [place] [address] 10/31/2024 1:00 PM EDT Telemedicine [facility] 240 [facility] [address] [place] [address] Ronald Mills MD 240 [facility] A1 [place] [address] documented as of this encounter [...] as of this encounter Care Teams Director Water And Waste Services Relationship Specialty Start Date End Date Caitlyn Bowie MD [facility] [address] [address] PCP - General Internal Medicine 05/06/21 documented as of this encounter
--- OUTSIDE RECORDS SUMMARY | 2024-09-11 11:34 | XMS_ITS | Encounter Summary ---
Author Organization [facility] Address [address] [place] [address] Care Team Providers Care Is/It Project Manager Name Role Phone Caitlyn Bowie MD Primary Care Provider +1- [phone] Encounter Details Date Type Department Care Team (Late st Contact Info) Description 04/13/2022 Scanned Document INTERFACE DEFAULT [address] [place] [address] System, Provider Not In Social History Tobacco [...] Description 09/30/2024 8:30 PM EDT Procedure visit [facility] [address] [place] [address] [address] [place] [address] 10/31/2024 1:00 PM EDT Telemedicine [facility] at [facility] 240 [facility] [address] [place] [address] Ronald Mills MD 240 [facility] A1 [place] [address] documented as of this encounter Procedures Procedure [...] documented as of this encounter Care Teams Is/It Project Manager Relationship Specialty Start Date End Date Caitlyn Bowie MD [facility] [address] [address] PCP - General Internal Medicine 05/06/21 documented as of this encounter
--- OUTSIDE RECORDS SUMMARY | 2024-09-11 11:34 | XMS_ITS | Encounter Summary ---
Author Organization [facility] and [facility] Address [address] [place] [address] Care Team Providers Care Microsoft Dynamics Manager Architect Name Role Phone Caitlyn Bowie MD Primary Care Provider +1- [phone] Encounter Details Date Type Department Care Team (Late st Contact Info) Description 12/31/2015 Scanned Document [facility] [address] [place] [address] External, Provider Social History Tobacco Use Types [...] Description 09/30/2024 8:30 PM EDT Procedure visit [facility] [address] [place] [address] [address] [place] [address] 10/31/2024 1:00 PM EDT Telemedicine [facility] 240 [facility] Building [address] [place], [place] [address] Ronald Mills MD 240 [facility] A1 [place] [address] documented as of this encounter Procedures Procedure Name Priority Date/Time Associated Diagnosis Comments LAB SCAN Routine 12/31/2015 documented in this encounter Results * Lab Scan (12/31/2015) Blood specimen (specimen) us Provider External LAB BLOOD ORDERABLES Final Res ult Performing Organization Address City/State/[facility] Co de Phone Number [facility] documented in this encounter Visit Diagnoses Not on filedocumented in this encounter Additional Health Concerns Infection Onset Date Last Indicated Resolved Time COVID-19 03/05/2022 03/05/2022 03/15/2022 7:18 PM EDT documented as of this encounter Care Teams Microsoft Dynamics Manager Architect Relationship Specialty Start Date End Date Caitlyn Bowie MD [address] [facility] 1 [place] [address] PCP - General Internal Medicine 05/06/21 eHnry Kelly MD Pulmonary Department 175 [facility], [address] [place] [address] Physician Pulmonary Disease 09/06/17 06/22/20 documented as of this encounter
--- OUTSIDE RECORDS SUMMARY | 2024-09-11 11:34 | XMS_ITS | Encounter Summary ---
Author Organization [facility] and [facility] Address [address] [place] [address] Care Team Providers Care Trust Clerk Name Role Phone Caitlyn Bowie MD Primary Care Provider +1- [phone] Encounter Details Date Type Department Care Team (Late st Contact Info) Description 04/14/2022 Scanned Document INTERFACE DEFAULT [address] [place] [address] System, Provider Not In Social History Tobacco [...] Description 09/30/2024 8:30 PM EDT Procedure visit [facility] [address] [place] [address] [address] [place] [address] 10/31/2024 1:00 PM EDT [facility] 240 [facility] [address] [place] [address] Ronald Mills MD 240 [facility] A1 [place] [address] documented as of this encounter Visit Diagnoses Not on filedocumented in this encounter Additional Health Concerns Assessment Noted Time PHQ-9 Depression Total Score: 2 11/07/19 19 2:06 PM EDT documented as of this encounter Care Teams Trust Clerk Relationship Specialty Start Date End Date Caitlyn Bowie MD [address] [address] PCP - General Internal Medicine 05/06/21 documented as of this encounter
--- OUTSIDE RECORDS SUMMARY | 2024-09-11 11:34 | XMS_ITS | Encounter Summary ---
Author Organization [facility] and [facility] Address [address] [place] [address] Care Team Providers Care Bakelite Molder Name Role Phone Caitlyn Bowie MD Primary Care Provider +1- [phone] Encounter Details Date Type Department Care Team (Late st Contact Info) Description 04/28/2022 Scanned Document INTERFACE DEFAULT [address] [place] [address] System, Provider Not In Social History Tobacco [...] 09/30/2024 8:30 PM EDT Procedure visit [facility] [address] [place] [address] [address] [place] [address] 10/31/2024 1:00 PM EDT [facility] 240 [facility] [address] [place] [address] Ronald Mills MD 240 [facility] A1 [place] [address] documented as of this encounter Procedures Procedure [...] documented as of this encounter Care Teams Bakelite Molder Relationship Specialty Start Date End Date Caitlyn Bowie MD [facility] [address] [address] PCP - General Internal Medicine 05/06/21 documented as of this encounter
--- OUTSIDE RECORDS SUMMARY | 2024-09-11 11:34 | XMS_ITS | Encounter Summary ---
Author Organization [facility] and [facility] Address [address] [place] [address] Care Team Providers Care Bushel Worker Name Role Phone Caitlyn Bowie MD Primary Care Provider +1- [phone] Encounter Details Date Type Department Care Team (Late st Contact Info) Description 04/19/2022 Scanned Document INTERFACE DEFAULT [address] [place] [address] System, Provider Not In Social History Tobacco [...] Description 09/30/2024 8:30 PM EDT Procedure visit [facility] [address] [place] [address] [address] [place] [address] 10/31/2024 1:00 PM EDT Tele[facility] at [facility] 240 [facility] [address] [place] [address] Ronald Mills MD 240 [facility] A1 [place] [address] documented as of this encounter Procedures Procedure [...] documented as of this encounter Care Teams Bushel Worker Relationship Specialty Start Date End Date Caitlyn Bowie MD [address] [address] PCP - General Internal Medicine 05/06/21 documented as of this encounter
--- OUTSIDE RECORDS SUMMARY | 2024-09-11 11:35 | XMS_ITS | Encounter Summary ---
Author Organization [facility] and [facility] Address [address] [place] [address] Care Team Providers Care Glass Furnace Tender Name Role Phone Caitlyn Bowie MD Primary Care Provider +1- [phone] Encounter Details Date Type Department Care Team (Late st Contact Info) Description 01/28/2019 Scanned Document Cardiovascular Medicine at [address] [place] [address] Cristian Arreguin MBBS [address] [place] [address] Social History Tobacco Use Types [...] EDT Procedure visit [facility] [address] [place] [address] [address] [place] [address] 10/31/2024 1:00 PM EDT Telemedicine [facility] at [address] [place], [place] [address] Ronald Mills MD 240 [facility] A1 [place] [address] documented as of this encounter Visit Diagnoses Not on filedocumented in this encounter Additional Health Concerns Infection Onset Date Last Indicated Resolved Time COVID-19 03/05/2022 03/05/2022 03/15/2022 7:18 PM EDT Assessment Noted Time PHQ-9 Depression Total Score: 2 11/07/19 19 2:06 PM EDT documented as of this encounter Care Teams Glass Furnace Tender Relationship Specialty Start Date End Date Caitlyn Bowie MD 3400 [facility] 1 [place] [address] PCP - General Internal Medicine 05/06/21 Henry Kelly MD Pulmonary Department 175 [facility], [address] [place] [address] Physician Pulmonary Disease 09/06/17 06/22/20 documented as of this encounter
--- OUTSIDE RECORDS SUMMARY | 2024-09-11 11:35 | XMS_ITS | Encounter Summary ---
Author Organization [facility] Address [address] [place] [address] Care Team Providers Care Backpackers Manager Name Role Phone Caitlyn Bowie MD Primary Care Provider +1- [phone] Encounter Details Date Type Department Care Team (Late st Contact Info) Description 03/23/2021 Scanned Document INTERFACE DEFAULT [address] [place] [address] System, Provider Not In Social History Tobacco [...] EDT Procedure visit [facility] [address] [place] [address] [address] [place] [address] 10/31/2024 1:00 PM EDT Telemedicine [facility] at [facility] 240 [facility] [address] [place] [address] Ronald Mills MD 240 [facility] A1 [place] [address] documented as of this encounter [...] documented as of this encounter Care Teams Backpackers Manager Relationship Specialty Start Date End Date Caitlyn Bowie MD [facility] [address] [address] PCP - General Internal Medicine 05/06/21 documented as of this encounter
--- OUTSIDE RECORDS SUMMARY | 2024-09-11 11:35 | XMS_ITS | Encounter Summary ---
Author Organization [facility] Address [address] [place] [address] Care Team Providers Care Associate Relations Specialist Name Role Phone Caitlyn Bowie MD Primary Care Provider +1- [phone] Encounter Details Date Type Department Care Team (Late st Contact Info) Description 04/02/2021 Scanned Document INTERFACE DEFAULT [address] [place] [address] System, Provider Not In Social History Tobacco [...] Description 09/30/2024 8:30 PM EDT Procedure visit [facility] [address] [place] [address] [address] [place] [address] 10/31/2024 1:00 PM EDT Telemedicine [facility] at [facility] 240 [facility] [address] [place] [address] Ronald Mills MD 240 [facility] A1 [place] [address] documented as of [...] as of this encounter Care Teams Associate Relations Specialist Relationship Specialty Start Date End Date Caitlyn Bwoie MD [address] [address] PCP - General Internal Medicine 05/06/21 documented as of this encounter
--- OUTSIDE RECORDS SUMMARY | 2024-09-11 11:35 | XMS_ITS | Encounter Summary ---
Author Organization [facility] and [facility] Address [address] [place] [address] Care Team Providers Care Gourmet Coffee Attendant Name Role Phone Caitlyn Bowie MD Primary Care Provider +1- [phone] Encounter Details Date Type Department Care Team (Late st Contact Info) Description 02/06/2019 Scanned Document [facility] Health Information Management [address] [place] [address] External, Provider Social History Tobacco Use Types [...] Description 09/30/2024 8:30 PM EDT Procedure visit [facility] [address] [place] [address] [address] [place] [address] 10/31/2024 1:00 PM EDT [facility]med[facility] 240 [facility] [address] [place] [address] Ronald Mills MD 240 [facility] A1 [place] [address] documented as of this encounter Procedures Procedure [...] documented as of this encounter Care Teams Gourmet Coffee Attendant Relationship Specialty Start Date End Date Caitlyn Bowie MD 3400 [facility] Max 1 [place] [address] PCP - General Internal Medicine 05/06/21 Henry Kelly MD Pulmonary Department 175 [facility], [address] [place] [address] Physician Pulmonary Disease 09/06/17 06/22/20 documented as of this encounter
--- OUTSIDE RECORDS SUMMARY | 2024-09-11 11:35 | XMS_ITS | Encounter Summary ---
Author Organization [facility] Address [address] [place] [address] Care Team Providers Care Stereotyper Apprentice Name Role Phone Caitlyn Bowie MD Primary Care Provider +1- [phone] Encounter Details Date Type Department Care Team (Late st Contact Info) Description 03/22/2021 Scanned Document INTERFACE DEFAULT [address] [place] [address] System, Provider Not In Social History Tobacco [...] Description 09/30/2024 8:30 PM EDT Procedure visit [facility] [address] [place] [address] [address] [place] [address] 10/31/2024 1:00 PM EDT Telemedicine [facility] at [facility] 240 [facility] Building [address] [place] [address] Ronald Mills MD 240 [facility] A1 [place] [address] documented as of this encounter Visit Diagnoses Not on filedocumented in this encounter Additional Health Concerns Infection Onset Date Last Indicated Resolved Time COVID-19 03/05/2022 03/05/2022 03/15/2022 7:18 PM EDT Assessment Noted Time PHQ-9 Depression Total Score: 2 11/07/19 19 2:06 PM EDT documented as of this encounter Care Teams Stereotyper Apprentice Relationship Specialty Start Date End Date Caitlyn Bowie MD [address] [address] PCP - General Internal Medicine 05/06/21 documented as of this encounter
--- OUTSIDE RECORDS SUMMARY | 2024-09-11 11:35 | XMS_ITS | Encounter Summary ---
Author Organization [facility] Address [address] [place] [address] Care Team Providers Care Cafe Or Restaurant Manager Name Role Phone Caitlyn Bowie MD Primary Care Provider +1- [phone] Encounter Details Date Type Department Care Team (Late st Contact Info) Description 11/29/2017 Scanned Document [facility] Health Information Management [address] [place] [address] External, Provider Social History Tobacco Use Types [...] Description 09/30/2024 8:30 PM EDT Procedure visit [facility] [address] [place] [address] [address] [place] [address] 10/31/2024 1:00 PM EDT Telemedicine [facility] at [facility] 240 [facility] Building [address] [place], [place] [address] Ronald Mills MD 240 [facility] A1 [place] [address] documented as of this encounter [...] documented as of this encounter Care Teams Cafe Or Restaurant Manager Relationship Specialty Start Date End Date Caitlyn Bowie MD 3400 [facility] 1 [place] [address] PCP - General Internal Medicine 05/06/21 Henry Kelly MD Pulmonary Department 175 [facility], [address] [place] [address] Physician Pulmonary Disease 09/06/17 06/22/20 documented as of this encounter
--- OUTSIDE RECORDS SUMMARY | 2024-09-11 11:35 | XMS_ITS | Encounter Summary ---
Author Organization [facility] and [facility] Address [address] [place] [address] Care Team Providers Care Marine Fire Fighter Name Role Phone Caitlyn Bowie MD Primary Care Provider +1- [phone] Encounter Details Date Type Department Care Team (Late st Contact Info) Description 01/13/2019 Scanned Document [facility] Health Information Management [address] [place] [address] External, Provider Social History Tobacco Use Types [...] Description 09/30/2024 8:30 PM EDT Procedure visit [facility] [address] [place] [address] [address] [place] [address] 10/31/2024 1:00 PM EDT [facility] 240 [facility] [address] [place] [address] Ronald Mills MD 240 [facility] A1 [place] [address] documented as of this encounter Procedures Procedure [...] documented as of this encounter Care Teams Marine Fire Fighter Relationship Specialty Start Date End Date Caitlyn Bowie MD 3400 [facility] 1 [place] [address] PCP - General Internal Medicine 05/06/21 Henry Kelly MD Pulmonary Department 175 [facility], [address] [place] [address] Physician Pulmonary Disease 09/06/17 06/22/20 documented as of this encounter
--- OUTSIDE RECORDS SUMMARY | 2024-09-11 11:35 | XMS_ITS | Encounter Summary ---
Author Organization [facility] and [facility] Address [address] [place] [address] Care Team Providers Care Fish Hatchery Assistant Name Role Phone Caitlyn Bowie MD Primary Care Provider +1- [phone] Encounter Details Date Type Department Care Team (Late st Contact Info) Description 01/30/2019 Scanned Document [facility] Health Information Management [address] [place] [address] External, Provider Social History Tobacco Use Types [...] Description 09/30/2024 8:30 PM EDT Procedure visit [facility] [address] [place] [address] [address] [place] [address] 10/31/2024 1:00 PM EDT Telemedicine [facility] 240 [facility] [address] [place] [address] Ronald Mills MD 240 [facility] A1 [place] [address] documented as of this encounter Procedures Procedure [...] as of this encounter Care Teams Fish Hatchery Assistant Relationship Specialty Start Date End Date Caitlyn Bowie MD 3400 [facility] 1 [place] [address] PCP - General Internal Medicine 05/06/21 Henry Kelly MD Pulmonary Department 175 [facility], [address] [place] [address] Physician Pulmonary Disease 09/06/17 06/22/20 documented as of this encounter
--- OUTSIDE RECORDS SUMMARY | 2024-09-11 11:35 | XMS_ITS | Encounter Summary ---
Author Organization [facility] and [facility] Address [address] [place] [address] Care Team Providers Care Computer Scientist Name Role Phone Caitlyn Bowie MD Primary Care Provider +1- [phone] Encounter Details Date Type Department Care Team (Late st Contact Info) Description 03/08/2021 Scanned Document INTERFACE DEFAULT [address] [place] [address] System, Provider Not In Social History Tobacco [...] Description 09/30/2024 8:30 PM EDT Procedure visit [facility] [address] [place] [address] [address] [place] [address] 10/31/2024 1:00 PM EDT Telemedicine [facility] 240 [facility] [address] [place] [address] Ronald Mills MD 240 [facility] A1 [place] [address] documented as of this encounter Procedures Procedure [...] as of this encounter Care Teams Computer Scientist Relationship Specialty Start Date End Date Caitlyn Bowie MD [address] [address] PCP - General Internal Medicine 05/06/21 documented as of this encounter
--- OUTSIDE RECORDS SUMMARY | 2024-09-11 11:35 | XMS_ITS | Encounter Summary ---
Author Organization [facility] and [facility] Address [address] [place] [address] Care Team Providers Care Olive Grader Name Role Phone Caitlyn Bowie MD Primary Care Provider +1- [phone] Encounter Details Date Type Department Care Team (Late st Contact Info) Description 01/28/2019 Scanned Document [facility] Information Management [address] [place] [address] External, Provider Social History Tobacco Use Types [...] 09/30/2024 8:30 PM EDT Procedure visit [facility] [address] [place] [address] [address] [place] [address] 10/31/2024 1:00 PM EDT [facility]medicine [facility] 240 [facility] [address] [place] [address] Ronald Mills MD 240 [facility] A1 [place] [address] documented as of this encounter Visit Diagnoses Not on filedocumented in this encounter Additional Health Concerns Infection Onset Date Last Indicated Resolved Time COVID-19 03/05/2022 03/05/2022 03/15/2022 7:18 PM EDT Assessment Noted Time PHQ-9 Depression Total Score: 2 11/07/19 19 2:06 PM EDT documented as of this encounter Care Teams Olive Grader Relationship Specialty Start Date End Date Caitlyn Bowie MD 3400 [facility] 1 [place] [address] PCP - General Internal Medicine 05/06/21 Henry Kelly MD Pulmonary Department [address] [place] [address], [address] [place] [address] Physician Pulmonary Disease 09/06/17 06/22/20 documented as of this encounter
--- OUTSIDE RECORDS SUMMARY | 2024-09-11 11:35 | XMS_ITS | Encounter Summary ---
Author Organization [facility] Address [address] [place] [address] Care Team Providers Care Vacation Planner Name Role Phone Caitlyn Bowie MD Primary Care Provider +1- [phone] Encounter Details Date Type Department Care Team (Late st Contact Info) Description 02/25/2021 Scanned Document INTERFACE DEFAULT [address] [place] [address] System, Provider Not In Social History Tobacco [...] Description 09/30/2024 8:30 PM EDT Procedure visit [facility] [address] [place] [address] [address] [place] [address] 10/31/2024 1:00 PM EDT Telemedicine [facility] at [facility] 240 [facility] Building [address] [place] [address] Ronald Mills MD 240 [facility] A1 [place] [address] documented as of this encounter [...] documented as of this encounter Care Teams Vacation Planner Relationship Specialty Start Date End Date Caitlyn Bowie MD [address] [place] [address] PCP - General Internal Medicine 05/06/21 documented as of this encounter
--- OUTSIDE RECORDS SUMMARY | 2024-09-11 11:35 | XMS_ITS | Encounter Summary ---
Author Organization [facility] and [facility] Address [address] [place] [address] Care Team Providers Care Elementary Special Education Teacher Name Role Phone Caitlyn Bowie MD Primary Care Provider +1- [phone] Encounter Details Date Type Department Care Team (Late st Contact Info) Description 03/01/2021 Scanned Document INTERFACE DEFAULT [address] [place] [address] System, Provider Not In Social History Tobacco [...] Description 09/30/2024 8:30 PM EDT Procedure visit [facility] [address] [place] [address] [address] [place] [address] 10/31/2024 1:00 PM EDT Telemedicine [facility] at [facility] [address] [facility] [address] [place] [address] Ronald Mills MD 240 [facility] A1 [place] [address] documented as of this encounter Visit Diagnoses Not on filedocumented in this encounter Additional Health Concerns Infection Onset Date Last Indicated Resolved Time COVID-19 03/05/2022 03/05/2022 03/15/2022 7:18 PM EDT Assessment Noted Time PHQ-9 Depression Total Score: 2 11/07/19 19 2:06 PM EDT documented as of this encounter Care Teams Elementary Special Education Teacher Relationship Specialty Start Date End Date Caitlyn Bowie MD [address] [address] PCP - General Internal Medicine 05/06/21 documented as of this encounter
--- OUTSIDE RECORDS SUMMARY | 2024-09-11 11:35 | XMS_ITS | Encounter Summary ---
Author Organization [facility] Address [address] [place] [address] Care Team Providers Care Mail Superintendent Name Role Phone Caitlyn Bowie MD Primary Care Provider +1- [phone] Encounter Details Date Type Department Care Team (Late st Contact Info) Description 04/11/2021 Scanned Document [facility] Health Information Management [address] [place] [address] External, Provider Social History Tobacco Use Types [...] Description 09/30/2024 8:30 PM EDT Procedure visit [facility] [address] [place] [address] [address] [place] [address] 10/31/2024 1:00 PM EDT Telemedicine [facility] at [facility] 240 [facility] [address] [place] [address] Ronald Mills MD 240 [facility] A1 [place] [address] documented as of this encounter Visit Diagnoses Not on filedocumented in this encounter Additional Health Concerns Infection Onset Date Last Indicated Resolved Time COVID-19 03/05/2022 03/05/2022 03/15/2022 7:18 PM EDT Assessment Noted Time PHQ-9 Depression Total Score: 2 11/07/19 19 2:06 PM EDT documented as of this encounter Care Teams Mail Superintendent Relationship Specialty Start Date End Date Caitlyn Bowie MD [address] [phone] PCP - General Internal Medicine 05/06/21 documented as of this encounter
--- OUTSIDE RECORDS SUMMARY | 2024-09-11 11:35 | XMS_ITS | Encounter Summary ---
Author Organization [facility] and [facility] Address [address] [place] [address] Care Team Providers Care Retail Field Merchandiser Name Role Phone Caitlyn Bowie MD Primary Care Provider +1- [phone] Encounter Details Date Type Department Care Team (Late st Contact Info) Description 01/09/2019 Scanned Document [facility] Health Information Management [address] [place] [address] External, Provider Social History Tobacco Use Types [...] Description 09/30/2024 8:30 PM EDT Procedure visit [facility] [address] [place] [address] [address] [place] [address] 10/31/2024 1:00 PM EDT [facility] 240 [facility] [address] [place] [address] Ronald Mills MD 240 [facility] [address]1 [place] [address] documented as of this encounter Procedures Procedure [...] as of this encounter Care Teams Retail Field Merchandiser Relationship Specialty Start Date End Date Caitlyn Bowie MD 3400 [facility] Max 1 [place] [address] PCP - General Internal Medicine 05/06/21 Henry Kelly MD Pulmonary Department [address] [place] [address], [address] [place] [address] Physician Pulmonary Disease 09/06/17 06/22/20 documented as of this encounter
--- OUTSIDE RECORDS SUMMARY | 2024-09-11 11:35 | XMS_ITS | Encounter Summary ---
Author Organization [facility] and [facility] Address [address] [place] [address] Care Team Providers Care Multi Disciplined Language Analyst Name Role Phone Caitlyn Bowie MD Primary Care Provider +1- [phone] Encounter Details Date Type Department Care Team (Late st Contact Info) Description 01/08/2019 Scanned Document [facility] Health Information Management [address] [place] [address] External, Provider Social History Tobacco Use Types [...] Description 09/30/2024 8:30 PM EDT Procedure visit [facility] [address] [place] [address] [address] [place] [address] 10/31/2024 1:00 PM EDT [facility] 240 [facility] [address] [place] [address] Ronald Mills MD 240 [facility] [address]1 [place] [address] documented as of this encounter Procedures Procedure [...] documented as of this encounter Care Teams Multi Disciplined Language Analyst Relationship Specialty Start Date End Date Caitlyn Bowie MD 3400 [facility] [address] 1 [place] [address] PCP - General Internal Medicine 05/06/21 Henry Kelly MD Pulmonary Department 175 [facility], [address] [place] [address] Physician Pulmonary Disease 09/06/17 06/22/20 documented as of this encounter
--- OUTSIDE RECORDS SUMMARY | 2024-09-11 11:35 | XMS_ITS | Encounter Summary ---
Author Organization [facility] and [facility] Address [address] [place] [address] Care Team Providers Care Meat Stringer Name Role Phone Caitlyn Bowie MD Primary Care Provider +1- [phone] Encounter Details Date Type Department Care Team (Late st Contact Info) Description 01/02/2019 Scanned Document [facility] Health Information Management [address] [place] [address] External, Provider Social History Tobacco Use Types [...] Description 09/30/2024 8:30 PM EDT Procedure visit [facility] [address] [place] [address] [address] [place] [address] 10/31/2024 1:00 PM EDT [facility] 240 [facility] [address] [place] [address] Ronald Mills MD 240 [facility] A1 [place] [address] documented as of this encounter Procedures Procedure [...] as of this encounter Care Teams Meat Stringer Relationship Specialty Start Date End Date Caitlyn Bwoie MD 3400 [facility] 1 [place] [address] PCP - General Internal Medicine 05/06/21 Henry Kelly MD Pulmonary Department 175 [facility], [address] [place] [address] Physician Pulmonary Disease 09/06/17 06/22/20 documented as of this encounter
--- OUTSIDE RECORDS SUMMARY | 2024-09-11 11:35 | XMS_ITS | Encounter Summary ---
Author Organization [facility] and [facility] Address [address] [place] [address] Care Team Providers Care Back Hanger Name Role Phone Caitlyn Bowie MD Primary Care Provider +1- [phone] Encounter Details Date Type Department Care Team (Late st Contact Info) Description 02/15/2021 Scanned Document INTERFACE DEFAULT [address] [place] [address] System, Provider Not In Social History Tobacco [...] Description 09/30/2024 8:30 PM EDT Procedure visit [facility] [address] [place] [address] [address] [place] [address] 10/31/2024 1:00 PM EDT [facility] 240 [facility] [address] [place] [address] Ronald Mills MD 240 [facility] [address]1 [place] [address] documented as of this encounter Visit Diagnoses Not on filedocumented in this encounter Additional Health Concerns Infection Onset Date Last Indicated Resolved Time COVID-19 03/05/2022 03/05/2022 03/15/2022 7:18 PM EDT Assessment Noted Time PHQ-9 Depression Total Score: 2 11/07/19 19 2:06 PM EDT documented as of this encounter Care Teams Back Hanger Relationship Specialty Start Date End Date Caitlyn Bowie MD [address] [address] PCP - General Internal Medicine 05/06/21 documented as of this encounter
--- OUTSIDE RECORDS SUMMARY | 2024-09-11 11:35 | XMS_ITS | Encounter Summary ---
Author Organization [facility] and [facility] Address [address] [place] [address] Care Team Providers Care Signals Officer Name Role Phone Caitlyn Bowie MD Primary Care Provider +1- [phone] Encounter Details Date Type Department Care Team (Late st Contact Info) Description 03/14/2021 Scanned Document INTERFACE DEFAULT [address] [place] [address] System, Provider Not In Social History Tobacco [...] Description 09/30/2024 8:30 PM EDT Procedure visit [facility] [address] [place] [address] [address] [place] [address] 10/31/2024 1:00 PM EDT [facility] 240 [facility] [address] [place] [address] Ronald Mills MD 240 [facility] A1 [place] [address] documented as of this encounter [...] documented as of this encounter Care Teams Signals Officer Relationship Specialty Start Date End Date Caitlyn Bowie MD [address] [address] PCP - General Internal Medicine 05/06/21 documented as of this encounter
--- OUTSIDE RECORDS SUMMARY | 2024-09-11 11:35 | XMS_ITS | Encounter Summary ---
Author Organization [facility] and [facility] Address [address] [place] [address] Care Team Providers Care Tilesetter Name Role Phone Caitlyn Bowie MD Primary Care Provider +1- [phone] Encounter Details Date Type Department Care Team (Late st Contact Info) Description 04/10/2021 Scanned Document INTERFACE DEFAULT [address] [place] [address] System, Provider Not In Social History Tobacco [...] 09/30/2024 8:30 PM EDT Procedure visit [facility] [address] [place] [address] [address] [place] [address] 10/31/2024 1:00 PM EDT [facility] 240 [facility] [address] [place] [address] Ronald Mills MD 240 [facility] [address]1 [place] [address] documented as of this encounter Procedures Procedure [...] documented as of this encounter Care Teams Tilesetter Relationship Specialty Start Date End Date Caitlyn Bowie MD [address] [address] PCP - General Internal Medicine 05/06/21 documented as of this encounter
--- OUTSIDE RECORDS SUMMARY | 2024-09-11 11:35 | XMS_ITS | Encounter Summary ---
Author Organization [facility] and [facility] Address [address] [place] [address] Care Team Providers Care District Plant Supervisor Name Role Phone Caitlyn Bowie MD Primary Care Provider +1- [phone] Encounter Details Date Type Department Care Team (Late st Contact Info) Description 02/24/2021 Scanned Document INTERFACE DEFAULT [address] [place] [address] System, Provider Not In Social History Tobacco [...] EDT Procedure visit [facility] [address] [place] [address] [address] [place] [address] 10/31/2024 1:00 PM EDT [facility] 240 [facility] [address] [place] [address] Ronald Mills MD 240 [facility] [address]1 [place] [address] documented as of this encounter [...] as of this encounter Care Teams District Plant Supervisor Relationship Specialty Start Date End Date Caitlyn Bowie MD [address] [address] PCP - General Internal Medicine 05/06/21 documented as of this encounter
--- OUTSIDE RECORDS SUMMARY | 2024-09-11 11:35 | XMS_ITS | Encounter Summary ---
Author Organization [facility] and [facility] Address [address] [place] [address] Care Team Providers Care Master Certified Rv Technician Name Role Phone Caitlyn Bowie MD Primary Care Provider +1- [phone] Encounter Details Date Type Department Care Team (Late st Contact Info) Description 03/11/2021 Scanned Document INTERFACE DEFAULT [address] [place] [address] System, Provider Not In Social History Tobacco [...] Description 09/30/2024 8:30 PM EDT Procedure visit [facility] [address] [place] [address] [address] [place] [address] 10/31/2024 1:00 PM EDT [facility] 240 [facility] [address] [place] [address] Ronald Mills MD 240 [facility] [address]1 [place] [address] documented as of this encounter Procedures Procedure [...] documented as of this encounter Care Teams Master Certified Rv Technician Relationship Specialty Start Date End Date Caitlyn Bowie MD [address] [address] PCP - General Internal Medicine 05/06/21 documented as of this encounter
--- OUTSIDE RECORDS SUMMARY | 2024-09-11 11:35 | XMS_ITS | Encounter Summary ---
Author Organization [facility] and [facility] Address [address] [place] [address] Care Team Providers Care Inbound Customer Service Representative Name Role Phone Caitlyn Bowie MD Primary Care Provider +1- [phone] Encounter Details Date Type Department Care Team (Late st Contact Info) Description 03/12/2019 Scanned Document [facility] Health Information Management [address] [place] [address] External, Provider Social History Tobacco Use Types [...] Description 09/30/2024 8:30 PM EDT Procedure visit [facility] [address] [place] [address] [address] [place] [address] 10/31/2024 1:00 PM EDT [facility] 240 [facility] [address] [place] [address] Ronald Mills MD 240 [facility] [address]1 [place] [address] documented as of this encounter Procedures Procedure [...] documented as of this encounter Care Teams Inbound Customer Service Representative Relationship Specialty Start Date End Date Caitlyn Bowie MD 3400 [facility] [address] 1 [place] [address] PCP - General Internal Medicine 05/06/21 Henry Kelly MD Pulmonary Department 175 [facility], [address] [place] [address] Physician Pulmonary Disease 09/06/17 06/22/20 documented as of this encounter
--- OUTSIDE RECORDS SUMMARY | 2024-09-11 11:35 | XMS_ITS | Encounter Summary ---
Author Organization [facility] and [facility] Address [address] [place] [address] Care Team Providers Care Conduit Cleaner Name Role Phone Caitlyn Bowie MD Primary Care Provider +1- [phone] Encounter Details Date Type Department Care Team (Late st Contact Info) Description 03/16/2021 Scanned Document INTERFACE DEFAULT [address] [place] [address] System, Provider Not In Social History Tobacco [...] Description 09/30/2024 8:30 PM EDT Procedure visit [facility] [address] [place] [address] [address] [place] [address] 10/31/2024 1:00 PM EDT [facility] [address] [facility] [address] [place] [address] Ronald Mills MD 240 [facility] [address]1 [place] [address] documented as of this encounter Visit Diagnoses Not on filedocumented in this encounter Additional Health Concerns Infection Onset Date Last Indicated Resolved Time COVID-19 03/05/2022 03/05/2022 03/15/2022 7:18 PM EDT Assessment Noted Time PHQ-9 Depression Total Score: 2 11/07/19 19 2:06 PM EDT documented as of this encounter Care Teams Conduit Cleaner Relationship Specialty Start Date End Date Caitlyn Bowie MD [address] [address] PCP - General Internal Medicine 05/06/21 documented as of this encounter
--- OUTSIDE RECORDS SUMMARY | 2024-09-11 11:35 | XMS_ITS | Encounter Summary ---
Author Organization [facility] and [facility] Address [address] [place] [address] Care Team Providers Care Restaurant And Bar Manager Name Role Phone Caitlyn Bowie MD Primary Care Provider +1- [phone] Encounter Details Date Type Department Care Team (Late st Contact Info) Description 01/17/2019 Scanned Document [facility] Health Information Management [address] [place] [address] External, Provider Social History Tobacco Use Types [...] Description 09/30/2024 8:30 PM EDT Procedure visit [facility] [address] [place] [address] [address] [place] [address] 10/31/2024 1:00 PM EDT [facility] 240 [facility] [address] [place] [address] Ronald Mills MD 240 [facility] [address]1 [place] [address] documented as of this encounter Procedures Procedure [...] documented as of this encounter Care Teams Restaurant And Bar Manager Relationship Specialty Start Date End Date Caitlyn Bowie MD 3400 [facility] 1 [place] [address] PCP - General Internal Medicine 05/06/21 Henry Kelly MD Pulmonary Department 175 [facility], [address] [place] [address] Physician Pulmonary Disease 09/06/17 06/22/20 documented as of this encounter
--- OUTSIDE RECORDS SUMMARY | 2024-09-11 11:35 | XMS_ITS | Encounter Summary ---
Author Organization [facility] and [facility] Address [address] [place] [address] Care Team Providers Care Room Attendant Name Role Phone Caitlyn Bowie MD Primary Care Provider +1- [phone] Encounter Details Date Type Department Care Team (Late st Contact Info) Description 01/26/2018 Scanned Document [facility] Health Information Management [address] [place] [address] External, Provider Social History Tobacco Use Types [...] Description 09/30/2024 8:30 PM EDT Procedure visit [facility] [address] [place] [address] [address] [place] [address] 10/31/2024 1:00 PM EDT [facility] 240 [facility] [address] [place], [place] [address] Ronald Mills MD 240 [facility] [address]1 [place] [address] documented as of this encounter [...] documented as of this encounter Care Teams Room Attendant Relationship Specialty Start Date End Date Caitlyn Bowie MD 3400 [facility] 1 [place] [address] PCP - General Internal Medicine 05/06/21 Henry Kelly MD Pulmonary Department 175 [facility], [address] [place] [address] Physician Pulmonary Disease 09/06/17 06/22/20 documented as of this encounter
--- OUTSIDE RECORDS SUMMARY | 2024-09-11 11:35 | XMS_ITS | Encounter Summary ---
Author Organization [facility] and [facility] Address [address] [place] [address] Care Team Providers Care Administrative Asst Name Role Phone Caitlyn Bowie MD Primary Care Provider +1- [phone] Encounter Details Date Type Department Care Team (Late st Contact Info) Description 03/15/2021 Scanned Document INTERFACE DEFAULT [address] [place] [address] System, Provider Not In Social History Tobacco [...] Description 09/30/2024 8:30 PM EDT Procedure visit [facility] [address] [place] [address] [address] [place] [address] 10/31/2024 1:00 PM EDT [facility] 240 [facility] [address] [place] [address] Ronald Mills MD 240 [facility] [address]1 [place] [address] documented as of this encounter Procedures Procedure [...] as of this encounter Care Teams Administrative Asst Relationship Specialty Start Date End Date Caitlyn Bowie MD [address] [address] PCP - General Internal Medicine 05/06/21 documented as of this encounter
--- OUTSIDE RECORDS SUMMARY | 2024-09-11 11:35 | XMS_ITS | Encounter Summary ---
Author Organization [facility] and [facility] Address [address] [place] [address] Care Team Providers Care Housekeeping Lead Name Role Phone Caitlyn Bowie MD Primary Care Provider +1- [phone] Encounter Details Date Type Department Care Team (Late st Contact Info) Description 01/26/2018 Scanned Document [facility] Health Information Management [address] [place] [address] External, Provider Social History Tobacco Use Types [...] Description 09/30/2024 8:30 PM EDT Procedure visit [facility] [address] [place] [address] [address] [place] [address] 10/31/2024 1:00 PM EDT [facility] 240 [facility] [address] [place], [place] [address] Ronald Mills MD 240 [facility] [address]1 [place] [address] documented as of this encounter Visit Diagnoses Not on filedocumented in this encounter Additional Health Concerns Infection Onset Date Last Indicated Resolved Time COVID-19 03/05/2022 03/05/2022 03/15/2022 7:18 PM EDT documented as of this encounter Care Teams Housekeeping Lead Relationship Specialty Start Date End Date Caitlyn Bowie MD 3400 [facility] 1 [place] [address] PCP - General Internal Medicine 05/06/21 Henry Kelly MD Pulmonary Department 175 [facility], [address] [place] [address] Physician Pulmonary Disease 09/06/17 06/22/20 documented as of this encounter
--- OUTSIDE RECORDS SUMMARY | 2024-09-11 11:35 | XMS_ITS | Encounter Summary ---
Author Organization [facility] and [facility] Address [address] [place] [phone] Care Team Providers Care Tool Radial Drill Press Set Up Operator Name Role Phone Caitlyn Bowie MD Primary Care Provider +1- [phone] Encounter Details Date Type Department Care Team (Late st Contact Info) Description 04/11/2021 Scanned Document INTERFACE DEFAULT [address] [place] [address] System, Provider Not In Social History Tobacco [...] Description 09/30/2024 8:30 PM EDT Procedure visit [facility] [address] [place] [address] [address] [place] [address] 10/31/2024 1:00 PM EDT [facility] 240 [facility] [address] [place] [address] Ronadl Mills MD 240 [facility] [address]1 [place] [address] documented as of this encounter Procedures Procedure [...] as of this encounter Care Teams Tool Radial Drill Press Set Up Operator Relationship Specialty Start Date End Date Caitlyn Bowie MD [facility] [address] [address] PCP - General Internal Medicine 05/06/21 documented as of this encounter
--- OUTSIDE RECORDS SUMMARY | 2024-09-11 11:35 | XMS_ITS | Encounter Summary ---
Author Organization [facility] and [facility] Address [address] [place] [address] Care Team Providers Care Candy Polisher Name Role Phone Caitlyn Bowie MD Primary Care Provider +1- [phone] Encounter Details Date Type Department Care Team (Late st Contact Info) Description 01/26/2019 Scanned Document [facility] Health Information Management [address] [place] [address] External, Provider Social History Tobacco Use Types [...] Description 09/30/2024 8:30 PM EDT Procedure visit [facility] [address] [place] [address] [address] [place] [address] 10/31/2024 1:00 PM EDT [facility] 240 [facility] [address] [place] [address] Ronald Mills MD 240 [facility] [address]1 [place] [address] documented as of this encounter Procedures Procedure [...] as of this encounter Care Teams Candy Polisher Relationship Specialty Start Date End Date Caitlyn Bowie MD [facility] 1 [place] [address] PCP - General Internal Medicine 05/06/21 Henry Kelly MD Pulmonary Department 175 [facility], [address] [place] [address] Physician Pulmonary Disease 09/06/17 06/22/20 documented as of this encounter
--- OUTSIDE RECORDS SUMMARY | 2024-09-11 11:35 | XMS_ITS | Encounter Summary ---
Author Organization [facility] and [facility] Address [address] [place] [address] Care Team Providers Care Water Hydrant Installer Name Role Phone Caitlyn Bowie MD Primary Care Provider +1- [phone] Encounter Details Date Type Department Care Team (Late st Contact Info) Description 02/28/2021 Scanned Document INTERFACE DEFAULT [address] [place] [address] System, Provider Not In Social History Tobacco [...] Description 09/30/2024 8:30 PM EDT Procedure visit [facility] [address] [place] [address] [address] [place] [address] 10/31/2024 1:00 PM EDT [facility] 240 [facility] [address] [place] [address] Ronald Mills MD 240 [facility] [address] [place] [address] documented as of this encounter [...] as of this encounter Care Teams Water Hydrant Installer Relationship Specialty Start Date End Date Caitlyn Bowie MD [facility] [address] [address] PCP - General Internal Medicine 05/06/21 documented as of this encounter
--- OUTSIDE RECORDS SUMMARY | 2024-09-11 11:35 | XMS_ITS | Clinical Summary ---
Author Organization 175 [facility] Address [address] [place] [address] Phone Care Team Providers Care Instrument Repair Supervisor Name Role Phone Brennan Burnett Primary Care Provider [phone] Allergies Active Allergy Reactions Criticality Noted Date [...] 20 mg as needed by her previous inspector plating which she has taken sporadically. I have asked her to take this daily to see if this improves her symptoms and she has a follow-up appointment with Dr. Shah on September 16 which she will keep. We also had a long conversation regarding the fact that she is seeing 3 different inspector plating for the same problems. We informed her [...] continues to see Dr. Avalos or her inspector plating at [facility]. She verbalized [...] Team Description 08/26/2024 10:30 AM EST Telemedicine [facility] 175 [facility] [address] [place] [phone] Ayanna Jaffe MD Anxiety (Primary Dx); Memory change; Gait abnormality; White matter lesion of central nervous system 08/23/2024 1:20 PM EST Office Visit Gastroenterology - [address] [phone] Saima Amor, UTILITY WORKER [place] Gastroesophageal reflux disease, unspecified whether esophagitis present (Primary Dx); Constipation, unspecified constipation type 08/19/2024 Telephone [facility] Speech Therapy [address] [place] [phone] Daphne Alarcon, DOCUMENTATION LIAISON returning pt call 08/08/2024 Telephone [facility] Speech Therapy [address] [phone] Daphne Alarcon, DOCUMENTATION LIAISON Memory Loss (Returned pt call from 08/07 about recent missed visit. Pt is not interested in in person f/u right now due to cold weather and other medical issues. She will f/u with medical team if she wants to address cognitive status in future) 07/04/2024 Telephone Gastroenterology - [address] [phone] Tim Gomes MD 07/01/2024 Telephone Gastroenterology - [address] [address] Tim Gomes MD 06/20/2024 9:30 AM EST Evaluation [facility] Speech Therapy [address] [place] [phone] Daphne Alarcon, DOCUMENTATION LIAISON Cognitive communication disorder (Primary Dx); White matter lesion of central nervous system; Unsp symptoms and signs w cognitive functions and awareness; Gait abnormality 06/20/2024 Plan of Care Documentation [facility] Speech Therapy [address] [address] 06/15/2024 11:51 AM EST - 06/15/2024 4:05 PM EST Emergency [facility] [address] [place] [address] Jovana Cruz MD Pain (Primary [...] Akathisia 04/15/2013 DX:Akathisia Anxiety 12/07/2016 DX:Anxiety Bronchiectasis ([facility]) 08/08/2017 DX:Bron chiectasis ([facility]) Cataract 08/26/2014 DX:Cataract Chronic obstructive pulmonar y disease ([facility]) 04/13/2017 DX:Chronic obstructive pulmo nary disease ([facility]) 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 DX:Complica cole migraine Congestive heart failure ([facility]) 04/04/2017 DX:Congestive heart failure (HCC) History of [...] Mx LLL resection, Chemo, RT, Cisplatin, Vinorelbine [phone] 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 DX:Antiphospholipid [...] Info) Description 10/09/2024 12:45 PM EDT Treatment [facility] Speech Therapy [address] [phone] Daphne Alarcon, DOCUMENTATION LIAISON Health Maintenance Due Date Last Done Comments [...] Author [facility] No Daphne Alarcon, DOCUMENTATION LIAISON Note: Pt will improve cognitive linguistic function to participate and communicate in iADLs mod I [facility] General No Daphne Alarcon, DOCUMENTATION LIAISON Note: Pt will participate with development of [...] LAB HEMETOLOGY METHOD 06/15/2024 1:[address] [facility] RBC 3.70(L) 3.80 - 4.80 M/mcL LAB HEMETOLOGY METHOD 06/15/2024 1:[address] [facility] Hemoglobin 12.0 11.5 - 16.0 [...] LAB HEMETOLOGY METHOD 06/15/2024 1:[address] [facility] Basophils Relative 0.4 % LAB HEMETOLOGY METHOD 06/15/2024 1:[address] [facility] Immature Granulocytes Relative 0.8 % LAB HEMETOLOGY METHOD 06/15/2024 1:39 PM [facility] Neutrophils Absolute 11.28(H) 1.50 - 7.00 K/mcL LAB HEMETOLOGY METHOD 06/15/2024 1:[address] [facility] Lymphocytes Absolute 0.63(L) 1.00 - 5.00 K/mcL LAB HEMETOLOGY METHOD 06/15/2024 1:[address] [facility] Monocytes Absolute 0.98 0.20 - 1.00 K/mcL LAB HEMETOLOGY METHOD 06/15/2024 1:39 PM [facility] Eosinophils Absolute 0.14 0.00 - 0.50 K/mcL LAB HEMETOLOGY METHOD 06/15/2024 1:[address] [facility] Basophils Absolute 0.05 0.00 - 0.20 K/mcL LAB HEMETOLOGY METHOD 06/15/2024 1:[address] [facility] Immature Granulocytes Absolute 0.11(H) 0.00 - 0.03 K/mcL LAB HEMETOLOGY METHOD 06/15/2024 1:39 PM [facility] Blood Venous blood specimen / Unknown Venipuncture / Unknown 06/15/2024 1:26 PM EST 06/15/2024 1:31 PM EST us Jovana Cruz MD LAB BLOOD ORDERABLES Final Resul t [facility] [address] [place] [address], * (ABNORMAL) Protime-INR (06/15/2024 1:26 PM EST) Protime 22.9(H) 10.6 - 13.9 sec LAB COAGULATION METHOD 06/15/2024 1:[address] [facility] INR 1.8 LAB COAGULATION METHOD 06/15/2024 1:43 PM [facility] Blood Venous blood specimen / Unknown Venipuncture / Unknown 06/15/2024 1:26 PM EST 06/15/2024 1:31 PM EST us Jovana Cruz MD LAB BLOOD ORDERABLES Final Resul t [facility] [address] [place] [address], * (ABNORMAL) Comprehensive metabolic panel (06/15/2024 1:26 PM EST) [facility] Sodium 140 133 - 145 mmol/L [...] LAB CHEMISTRY METHOD 06/15/2024 2:10 PM EST [facility] eGFR 60 >=60 mL/min/1. 73m2 LAB CHEMISTRY METHOD 06/15/2024 2:[address] [facility] Comment:Calculation based on the??Chronic Kidney [...] LAB CHEMISTRY METHOD 06/15/2024 2:[address] [facility] Blood Venous blood specimen / Unknown Venipuncture / Unknown 06/15/2024 1:26 PM EST 06/15/2024 1:32 PM EST us Jovana Cruz MD LAB BLOOD ORDERABLES Final Resul t [facility] [address] [place] [address], [place] [phone] * Vascular US Duplex Lower Extremity Venous Left (06/15/2024 12:24 PM EST) Anatomical Region Laterality Modality Vascular, Abdomen Ultrasound 06/15/2024 12:2 0 PM EST Impressions 06/15/2024 12:20 PM EST Impression: No evidence of deep vein thrombosis in the left femoral-popliteal venous segment. [id number] -------- FINAL REPORT -------- Dictated By: Fawn Levin Dictated Date: 06/15/2024 12:20 ET Assigned Physician: Fawn Levin Reviewed and Electronically Signed By: Fawn Levin Signed Date: 06/15/2024 12:20 ET Workstation ID: [id number] Transcribed By: Self Edit Transcribed Date: 06/15/2024 [...] vein thrombosis in the leftfemoral-popliteal venous segment. [id number] -------- FINAL REPORT -------- Dictated By: Fawn Levin Dictated Date: 06/15/2024 12:20 ET Assigned Physician: Fawn Levin Reviewed and Electronically Signed By: Fawn Levin Signed Date: 06/15/2024 12:20 ET Workstation ID: [id number] Transcribed By: Self Edit Transcribed Date: 06/15/2024 12:20 ET us Henry Carrillo DO CV VASCULAR PROCEDURES Final R esult from Last 3 Months Insurance MEDICARE [facility] Advance Directives Documents on File Type Date Recorded Patient Nurse Orthopedic Expl anation Health Care Decision (hx) 10/18/2013 [...] (hx) 10/04/2013 AD LACEY DIRECTIVE Care Teams Instrument Repair Supervisor Relationship Specialty Start Date End Date Brennan Burnett MD [address] [place] [address] PCP - General 05/06/24
--- OUTSIDE RECORDS SUMMARY | 2024-09-11 11:35 | XMS_ITS | Encounter Summary ---
Author Organization [facility] and [facility] Address [address] [place] [address] Care Team Providers Care Traveling Nurse Name Role Phone Caitlyn Bowie MD Primary Care Provider +1- [phone] Encounter Details Date Type Department Care Team (Late st Contact Info) Description 04/12/2021 Scanned Document INTERFACE DEFAULT [address] [place] [address] System, Provider Not In Social History Tobacco [...] Description 09/30/2024 8:30 PM EDT Procedure visit [facility] [address] [place] [address] [address] [place] [phone] 10/31/2024 1:00 PM EDT Telemedicine [facility] 240 [facility] [address] [place] [address] Ronald Mills MD 240 [facility] [address] [place] [phone] documented as of this encounter Procedures Procedure [...] documented as of this encounter Care Teams Traveling Nurse Relationship Specialty Start Date End Date Caitlyn Bowie MD [facility] [address] [address] PCP - General Internal Medicine 05/06/21 documented as of this encounter
--- OUTSIDE RECORDS SUMMARY | 2024-09-11 11:36 | XMS_ITS | Encounter Summary ---
Author Organization [facility] and [facility] Address [address] [place] [address] Care Team Providers Care Bingo Caller Name Role Phone Caitlyn Bowie MD Primary Care Provider +1- [phone] Encounter Details Date Type Department Care Team (Late st Contact Info) Description 12/21/2020 Scanned Document INTERFACE DEFAULT [address] [place] [address] System, Provider Not In Social History Tobacco [...] Description 09/30/2024 8:30 PM EDT Procedure visit [facility] [address] [place] [address] [address] [place] [phone] 10/31/2024 1:00 PM EDT Telemedicine [facility] 240 [facility] [address] [place] [address] Ronald Mills MD 240 [facility] [address] [place] [phone] documented as of this encounter Visit Diagnoses Not on filedocumented in this encounter Additional Health Concerns Infection Onset Date Last Indicated Resolved Time COVID-19 03/05/2022 03/05/2022 03/15/2022 7:18 PM EDT Assessment Noted Time PHQ-9 Depression Total Score: 2 11/07/19 19 2:06 PM EDT documented as of this encounter Care Teams Bingo Caller Relationship Specialty Start Date End Date Caitlyn Bowie MD [address] [phone] PCP - General Internal Medicine 05/06/21 documented as of this encounter
--- OUTSIDE RECORDS SUMMARY | 2024-09-11 11:36 | XMS_ITS | Encounter Summary ---
Author Organization [facility] and [facility] Address [address] [place] [address] Care Team Providers Care Night Nurse Name Role Phone Caitlyn Bowie MD Primary Care Provider +1- [phone] Encounter Details Date Type Department Care Team (Late st Contact Info) Description 02/02/2021 Scanned Document INTERFACE DEFAULT [address] [place] [address] System, Provider Not In Social History Tobacco [...] Description 09/30/2024 8:30 PM EDT Procedure visit [facility] [address] [place] [address] [address] [place] [phone] 10/31/2024 1:00 PM EDT Telemedicine [facility] 240 [facility] [address] [place] [address] Ronald Mills MD 240 [facility] [address] [place] [phone] documented as of this encounter Procedures Procedure [...] as of this encounter Care Teams Night Nurse Relationship Specialty Start Date End Date Caitlyn Bowie MD [address] [phone] PCP - General Internal Medicine 05/06/21 documented as of this encounter
--- OUTSIDE RECORDS SUMMARY | 2024-09-11 11:36 | XMS_ITS | Encounter Summary ---
Author Organization [facility] Address [address] [place] [address] Care Team Providers Care Cyber Forensics Analyst Name Role Phone Caitlyn Bowie MD Primary Care Provider +1- [phone] Encounter Details Date Type Department Care Team (Late st Contact Info) Description 02/08/2016 Scanned Document [facility] Health Information Management [address] [place] [address] External, Provider Social History Tobacco Use Types [...] Description 09/30/2024 8:30 PM EDT Procedure visit [facility] [address] [place] [address] [address] [place] [address] 10/31/2024 1:00 PM EDT Telemedicine [facility] 240 [facility] [address] [place], [place] [address] Ronald Mills MD 240 [facility] [address]1 [place] [phone] documented as of this encounter Visit Diagnoses Not on filedocumented in this encounter Additional Health Concerns Infection Onset Date Last Indicated Resolved Time COVID-19 03/05/2022 03/05/2022 03/15/2022 7:18 PM EDT documented as of this encounter Care Teams Cyber Forensics Analyst Relationship Specialty Start Date End Date Caitlyn Bowie MD 3400 [facility] [address] [place] [address] PCP - General Internal Medicine 05/06/21 Henry Kelly MD Pulmonary Department 175 [facility], [address] [place] [address] Physician Pulmonary Disease 09/06/17 06/22/20 documented as of this encounter
--- OUTSIDE RECORDS SUMMARY | 2024-09-11 11:36 | XMS_ITS | Encounter Summary ---
Author Organization [facility] Address [address] [place] [address] Care Team Providers Care Streetcar Repairer Name Role Phone Caitlyn Bowie MD Primary Care Provider +1- [phone] Encounter Details Date Type Department Care Team (Late Contact Info) Description 02/03/2021 Scanned Document [facility] Health Information Management [address] [place] [address] External, Provider Social History Tobacco Use Types [...] Description 09/30/2024 8:30 PM EDT Procedure visit [facility] [address] [place] [address] [address] [place] [phone] 10/31/2024 1:00 PM EDT Telemedicine [facility] 240 [facility] [address] [place] [address] Ronald Mills MD 240 [facility] [address]1 [place] [address] documented as of this encounter [...] documented as of this encounter Care Teams Streetcar Repairer Relationship Specialty Start Date End Date Caitlyn Bowie MD [address] [phone] PCP - General Internal Medicine 05/06/21 documented as of this encounter
--- OUTSIDE RECORDS SUMMARY | 2024-09-11 11:36 | XMS_ITS | Encounter Summary ---
Author Organization [facility] and [facility] Address 20 [place] [address] Care Team Providers Care Telegraphic Typewriter Operator Chief Name Role Phone Caitlyn Bowie MD Primary Care Provider +1- [phone] Encounter Details Date Type Department Care Team (Late st Contact Info) Description 06/17/2016 Scanned Document [facility] [address] [place] [address] External, Provider Social History Tobacco Use Types [...] Description 09/30/2024 8:30 PM EDT Procedure visit [facility] [address] [place] [address] [address] [place] [address] 10/31/2024 1:00 PM EDT Telemedicine [facility] 240 [facility] Building [address] [place], [place] [address] Ronald Mills MD 240 [facility] [address] [place] [phone] documented as of this encounter Visit Diagnoses Not on filedocumented in this encounter Additional Health Concerns Infection Onset Date Last Indicated Resolved Time COVID-19 03/05/2022 03/05/2022 03/15/2022 7:18 PM EDT documented as of this encounter Care Teams Telegraphic Typewriter Operator Chief Relationship Specialty Start Date End Date Caitlyn Bowie MD [address] [facility] [address] [place] [address] PCP - General Internal Medicine 05/06/21 Henry Kelly MD Pulmonary Department 175 [facility], [address] [place] [address] Physician Pulmonary Disease 09/06/17 06/22/20 documented as of this encounter
--- OUTSIDE RECORDS SUMMARY | 2024-09-11 11:36 | XMS_ITS | Encounter Summary ---
Author Organization [facility] Address [address] [place] [address] Care Team Providers Care Accounts Payable Administrator Name Role Phone Caitlyn Bowie MD Primary Care Provider +1- [phone] Encounter Details Date Type Department Care Team (Late st Contact Info) Description 09/01/2017 Scanned Document [facility] Health Information Management [address] [place] [address] External, Provider Social History Tobacco Use Types [...] Description 09/30/2024 8:30 PM EDT Procedure visit [facility] [address] [place] [address] [address] [place] [phone] 10/31/2024 1:00 PM EDT Telemedicine [facility] at [facility] 240 [facility] [address] [place], [place] [phone] Ronald Mills MD 240 [facility] A1 [place] [address] documented as of this encounter [...] MD 3400 [facility] 1 [place] [address] PCP - General Internal Medicine 05/06/21 Henry Kelly MD Pulmonary Department 175 [facility], [address] [place] [address] Physician Pulmonary Disease 09/06/17 06/22/20 documented as of this encounter
--- OUTSIDE RECORDS SUMMARY | 2024-09-11 11:36 | XMS_ITS | Encounter Summary ---
Author Organization [facility] and [facility] Address [address] [place] [address] Care Team Providers Care Hand Ornament Maker Name Role Phone Caitlyn Bowie MD Primary Care Provider +1- [phone] Encounter Details Date Type Department Care Team (Late st Contact Info) Description 01/27/2021 Scanned Document [facility] at [address] [address] External, Provider Social History Tobacco Use Types [...] Description 09/30/2024 8:30 PM EDT Procedure visit [facility] [address] [place] [address] [place] [address] 10/31/2024 1:00 PM EDT Telemedicine [facility] at [address] [place], [place] [address] Ronald Mills MD [address] [address] documented as of this encounter [...] as of this encounter Care Teams Hand Ornament Maker Relationship Specialty Start Date End Date Caitlyn Bowie MD [address] [address] PCP - General Internal Medicine 05/06/21 documented as of this encounter
--- OUTSIDE RECORDS SUMMARY | 2024-09-11 11:36 | XMS_ITS | Encounter Summary ---
Author Organization [facility] Address [address] [place] [address] Care Team Providers Care Cager Operator Name Role Phone Caitlyn Bowie MD Primary Care Provider +1- [phone] Encounter Details Date Type Department Care Team (Late st Contact Info) Description 04/19/2024 Scanned Document INTERFACE DEFAULT [address] [place] [address] System, Provider Not In Social History Tobacco [...] EDT Procedure visit [facility] [address] [place] [address] [address] [place] [address] 10/31/2024 1:00 PM EDT Telemedicine [facility] 240 [facility] [address] [place] [address] Ronald Mills MD 240 [facility] [address] [place] [address] documented as of this encounter Procedures Procedure [...] documented as of this encounter Care Teams Cager Operator Relationship Specialty Start Date End Date Caitlyn Bowie MD [facility] [address] [address] PCP - General Internal Medicine 05/06/21 documented as of this encounter
--- OUTSIDE RECORDS SUMMARY | 2024-09-11 11:36 | XMS_ITS | Encounter Summary ---
Author Organization [facility] and [facility] Address [address] [place] [address] Care Team Providers Care Flying Shear Operator Name Role Phone Caitlyn Bowie MD Primary Care Provider +1- [phone] Encounter Details Date Type Department Care Team (Late st Contact Info) Description 02/08/2021 Scanned Document INTERFACE DEFAULT [address] [place] [address] System, Provider Not In Social History Tobacco [...] Description 09/30/2024 8:30 PM EDT Procedure visit [facility] [address] [place] [address] [address] [place] [address] 10/31/2024 1:00 PM EDT Telemedicine [facility] at [facility] 240 [facility] [address] [place] [address] Ronald Mills MD 240 [facility] [address]1 [place] [address] documented as of this encounter Visit Diagnoses Not on filedocumented in this encounter Additional Health Concerns Infection Onset Date Last Indicated Resolved Time COVID-19 03/05/2022 03/05/2022 03/15/2022 7:18 PM EDT Assessment Noted Time PHQ-9 Depression Total Score: 2 11/07/19 19 2:06 PM EDT documented as of this encounter Care Teams Flying Shear Operator Relationship Specialty Start Date End Date Caitlyn Bowie MD [address] [address] PCP - General Internal Medicine 05/06/21 documented as of this encounter
--- OUTSIDE RECORDS SUMMARY | 2024-09-11 11:36 | XMS_ITS | Encounter Summary ---
Author Organization [facility] and [facility] Address [address] [place] [address] Care Team Providers Care Client Relations Associate Name Role Phone Caitlyn Bowie MD Primary Care Provider +1- [phone] Encounter Details Date Type Department Care Team (Late st Contact Info) Description 01/07/2014 Documentation [facility] [address] [place] [address] Shilpi Ibarra [address] [place] [address] Social History Tobacco Use Types Packs/Day Years [...] from the original note were not included. [facility] Progress Note This is a 68 y.o. female who was provided services by [facility]. Service Provided By:: Shilpi Ibarra Patient Status: new Length of Appointment: 60 minutes Pre-Treatment Total: 3.6 Post-Treatment Total: 1.2 documented in this encounter Plan of Treatment Upcoming Encounters Date Type Department Care Team (Late st Contact Info) Description 09/30/2024 8:30 PM EDT Procedure visit [facility] [address] [place] [address] [address] [place] [address] 10/31/2024 1:00 PM EDT [facility]icine [facility] 240 [facility] [address] [place], [place] [address] Ronald Mills MD 240 [facility] Max [address] [place] [address] documented as of this encounter Visit Diagnoses Not on filedocumented in this encounter Additional Health Concerns Infection Onset Date Last Indicated Resolved Time COVID-19 03/05/2022 03/05/2022 03/15/2022 7:18 PM EDT documented as of this encounter Care Teams Client Relations Associate Relationship Specialty Start Date End Date Caitlyn Bowie MD 3400 [facility] 1 [place] [address] PCP - General Internal Medicine 05/06/21 Henry Kelly MD Pulmonary Department 175 [facility], [address] [place] [address] Physician Pulmonary Disease 09/06/17 06/22/20 documented as of this encounter
--- OUTSIDE RECORDS SUMMARY | 2024-09-11 11:36 | XMS_ITS | Encounter Summary ---
Author Organization [facility] and [facility] Address [address] [place] [address] Care Team Providers Care Lumber Driver Name Role Phone Caitlyn Bowie MD Primary Care Provider +1- [phone] Encounter Details Date Type Department Care Team (Late st Contact Info) Description 01/13/2021 Scanned Document Cancer Center at [address] [address] Ronald Mills MD [address] [place] [address] Social History Tobacco Use Types Packs/Day [...] Description 09/30/2024 8:30 PM EDT Procedure visit [facility] [address] [place] [address] [place] [address] 10/31/2024 1:00 PM EDT Telemedicine Cancer Center at [address] [place], [place] [address] Ronald Mills MD 240 [facility] A1 [place] [address] documented as of [...] as of this encounter Care Teams Lumber Driver Relationship Specialty Start Date End Date Caitlyn Bowie MD [address] [address] PCP - General Internal Medicine 05/06/21 documented as of this encounter
--- OUTSIDE RECORDS SUMMARY | 2024-09-11 11:36 | XMS_ITS | Encounter Summary ---
Author Organization [facility] Address [address] [place] [address] Care Team Providers Care Split And Drum Room Supervisor Name Role Phone Caitlyn Bowie MD Primary Care Provider +1- [phone] Encounter Details Date Type Department Care Team (Late st Contact Info) Description 06/25/2015 Scanned Document [facility] Health Information Management [address] [place] [address] External, Provider Social History Tobacco Use Types [...] Description 09/30/2024 8:30 PM EDT Procedure visit [facility] [address] [place] [address] [address] [place] [address] 10/31/2024 1:00 PM EDT Telemedicine [facility] at [facility] 240 [facility] Building [address] [place], [place] [address] Ronald Mills MD 240 [facility] A1 [place] [address] documented as of this encounter Visit Diagnoses Not on filedocumented in this encounter Additional Health Concerns Infection Onset Date Last Indicated Resolved Time COVID-19 03/05/2022 03/05/2022 03/15/2022 7:18 PM EDT documented as of this encounter Care Teams Split And Drum Room Supervisor Relationship Specialty Start Date End Date Caitlyn Bowie MD 3400 [facility] Max 1 [place] [address] PCP - General Internal Medicine 05/06/21 Henry Kelly MD Pulmonary Department 175 [facility], [address] [place] [address] Physician Pulmonary Disease 09/06/17 06/22/20 documented as of this encounter
--- OUTSIDE RECORDS SUMMARY | 2024-09-11 11:36 | XMS_ITS | Encounter Summary ---
Author Organization [facility] and [facility] Address [address] [place] [address] Care Team Providers Care Supervisor Customer Records Division Name Role Phone Caitlyn Bowie MD Primary Care Provider +1- [phone] Encounter Details Date Type Department Care Team (Late st Contact Info) Description 05/14/2015 Scanned Document [facility] Health Information Management [address] [place] [address] External, Provider Social History Tobacco Use Types [...] Description 09/30/2024 8:30 PM EDT Procedure visit [facility] [address] [place] [address] [address] [place] [address] 10/31/2024 1:00 PM EDT Telemedicine Cancer Center at [facility] [address] [facility] Building [address] [place], [place] [address] Ronald Mills MD 240 [facility] A1 [place] [address] documented as of this encounter Visit Diagnoses Not on filedocumented in this encounter Additional Health Concerns Infection Onset Date Last Indicated Resolved Time COVID-19 03/05/2022 03/05/2022 03/15/2022 7:18 PM EDT documented as of this encounter Care Teams Supervisor Customer Records Division Relationship Specialty Start Date End Date Caitlyn Bowie MD 3400 [facility] [address] 1 [place] [address] PCP - General Internal Medicine 05/06/21 Henry Kelly MD Pulmonary Department 175 [employer], [address] [place] [address] Physician Pulmonary Disease 09/06/17 06/22/20 documented as of this encounter
--- OUTSIDE RECORDS SUMMARY | 2024-09-11 11:36 | XMS_ITS | Encounter Summary ---
Author Organization [facility] and [facility] Address [address] [place] [address] Care Team Providers Care Principle Industrial Hygienist Name Role Phone Caitlyn Bowie MD Primary Care Provider +1- [phone] Encounter Details Date Type Department Care Team (Late st Contact Info) Description 12/27/2018 Scanned Document [facility] Health Information Management [address] [place] [address] External, Provider Social History Tobacco Use Types [...] Description 09/30/2024 8:30 PM EDT Procedure visit [facility] [address] [place] [address] [address] [place] [address] 10/31/2024 1:00 PM EDT Telemedicine Cancer Center at [facility] 240 [facility] [address] [place] [address] Ronald Mills MD 240 [facility] A1 [place] [address] documented as of this encounter Procedures Procedure [...] documented as of this encounter Care Teams Principle Industrial Hygienist Relationship Specialty Start Date End Date Caitlyn Bowie MD 3400 [facility] [address] 1 [place] [address] PCP - General Internal Medicine 05/06/21 Henry Kelly MD Pulmonary Department [address] [place] [address], [address] [place] [address] Physician Pulmonary Disease 09/06/17 06/22/20 documented as of this encounter
--- OUTSIDE RECORDS SUMMARY | 2024-09-11 11:36 | XMS_ITS | Encounter Summary ---
Author Organization [facility] and [facility] Address [address] [place] [address] Care Team Providers Care Chain Hooker Name Role Phone Caitlyn Bowie MD Primary Care Provider +1- [phone] Encounter Details Date Type Department Care Team (Late Contact Info) Description 02/02/2021 Scanned Document [facility] Health Information Management [address] [place] [address] External, Provider Social History Tobacco Use Types [...] Description 09/30/2024 8:30 PM EDT Procedure visit [facility] [address] [place] [address] [address] [place] [address] 10/31/2024 1:00 PM EDT Telemedicine Cancer Center at [facility] 240 [facility] [address] [place] [address] Ronald Mills MD 240 [facility] A1 [place] [address] documented as of this encounter Visit Diagnoses Not on filedocumented in this encounter Additional Health Concerns Infection Onset Date Last Indicated Resolved Time COVID-19 03/05/2022 03/05/2022 03/15/2022 7:18 PM EDT Assessment Noted Time PHQ-9 Depression Total Score: 2 11/07/19 19 2:06 PM EDT documented as of this encounter Care Teams Chain Hooker Relationship Specialty Start Date End Date Caitlyn Bowie MD [address] [address] PCP - General Internal Medicine 05/06/21 documented as of this encounter
--- OUTSIDE RECORDS SUMMARY | 2024-09-11 11:36 | XMS_ITS | Encounter Summary ---
Author Organization [facility] Address [address] [place] [address] Care Team Providers Care Certified First Assistant Name Role Phone Caitlyn Bowie MD Primary Care Provider +1- [phone] Encounter Details Date Type Department Care Team (Late st Contact Info) Description 04/23/2024 Scanned Document INTERFACE DEFAULT [address] [place] [address] System, Provider Not In Social History Tobacco [...] Description 09/30/2024 8:30 PM EDT Procedure visit [facility] [address] [place] [address] [address] [place] [address] 10/31/2024 1:00 PM EDT Telemedicine Cancer Center at [facility] 240 [facility] Building [address] [place] [address] Ronald Mills MD 240 [facility] A1 [place] [address] documented as of this encounter Procedures Procedure Name Priority Date/Time Associated Diagnosis Comments LAB SCAN 04/23/2024 12:00 AM EDT documented in this encounter Results * LAB SCAN (04/23/2024 12:00 AM EDT) us Provider Not In System LAB BLOOD ORDERABLES Carmian l Result documented in this encounter Visit Diagnoses Not on filedocumented in this encounter Additional Health Concerns Assessment Noted Time PHQ-9 Depression Total Score: 2 11/07/19 19 2:06 PM EDT documented as of this encounter Care Teams Certified First Assistant Relationship Specialty Start Date End Date Caitlyn Bowie MD [address] [address] PCP - General Internal Medicine 05/06/21 documented as of this encounter
--- OUTSIDE RECORDS SUMMARY | 2024-09-11 11:36 | XMS_ITS | Encounter Summary ---
Author Organization [facility] and [facility] Address [address] [place] [address] Care Team Providers Care Embedded Firmware Developer Name Role Phone Caitlyn Bowie MD Primary Care Provider +1- [phone] Encounter Details Date Type Department Care Team (Late st Contact Info) Description 12/28/2018 Scanned Document [facility] Health Information Management [address] [place] [address] External, Provider Social History Tobacco Use Types [...] 09/30/2024 8:30 PM EDT Procedure visit [facility] [address] [place] [address] [address] [place] [address] 10/31/2024 1:00 PM EDT Telemedicine Cancer Center at [facility] [address] [facility] [address] [place] [address] Ronald Mills MD 240 [facility] A1 [place] [address] documented as of this encounter Procedures Procedure [...] documented as of this encounter Care Teams Embedded Firmware Developer Relationship Specialty Start Date End Date Caitlyn Bowie MD [facility] 1 [place] [address] PCP - General Internal Medicine 05/06/21 Henry Kelly MD Pulmonary Department [address] [place] [address], [address] [place] [address] Physician Pulmonary Disease 09/06/17 06/22/20 documented as of this encounter
--- OUTSIDE RECORDS SUMMARY | 2024-09-11 11:36 | XMS_ITS | Encounter Summary ---
Author Organization [facility] and [facility] Address [address] [place] [address] Care Team Providers Care Bead Preparer Name Role Phone Caitlyn Bowie MD Primary Care Provider +1- [phone] Encounter Details Date Type Department Care Team (Late st Contact Info) Description 04/08/2024 Scanned Document INTERFACE DEFAULT [address] [place] [address] System, Provider Not In Social History Tobacco [...] Description 09/30/2024 8:30 PM EDT Procedure visit [facility] [address] [place] [address] [address] [place] [address] 10/31/2024 1:00 PM EDT Telemedicine Cancer Center at [facility] 240 [facility] [address] [place] [address] Ronald Mills MD 240 [facility] A1 [place] [address] documented as of this encounter Procedures Procedure [...] documented as of this encounter Care Teams Bead Preparer Relationship Specialty Start Date End Date Caitlyn Bowie MD [address] [address] PCP - General Internal Medicine 05/06/21 documented as of this encounter
--- OUTSIDE RECORDS SUMMARY | 2024-09-11 11:36 | XMS_ITS | Encounter Summary ---
Author Organization [facility] and [facility] Address [address] [place] [address] Care Team Providers Care Picking Table Worker Name Role Phone Caitlyn Bowie MD Primary Care Provider +1- [phone] Encounter Details Date Type Department Care Team (Late st Contact Info) Description 02/11/2021 Scanned Document INTERFACE DEFAULT [address] [place] [address] System, Provider Not In Social History Tobacco [...] Description 09/30/2024 8:30 PM EDT Procedure visit [facility] [address] [place] [address] [address] [place] [address] 10/31/2024 1:00 PM EDT Telemedicine [facility] 240 [facility] [address] [place] [address] Ronald Mills MD 240 [facility] A1 [place] [address] documented as of this encounter [...] documented as of this encounter Care Teams Picking Table Worker Relationship Specialty Start Date End Date Caitlyn Bowie MD [address] [address] PCP - General Internal Medicine 05/06/21 documented as of this encounter
--- OUTSIDE RECORDS SUMMARY | 2024-09-11 11:36 | XMS_ITS | Encounter Summary ---
Author Organization [facility] Address [address] [place] [address] Care Team Providers Care Industrial Staff Nurse Name Role Phone Caitlyn Bowie MD Primary Care Provider +1- [phone] Encounter Details Date Type Department Care Team (Late st Contact Info) Description 02/07/2021 Scanned Document INTERFACE DEFAULT [address] [place] [address] System, Provider Not In Social History Tobacco [...] Description 09/30/2024 8:30 PM EDT Procedure visit [facility] [address] [place] [address] [address] [place] [address] 10/31/2024 1:00 PM EDT Telemedicine [facility] at [facility] 240 [facility] [address] [place] [address] Ronald Mills MD 240 [facility] A1 [place] [address] documented as of this encounter Procedures Procedure [...] as of this encounter Care Teams Industrial Staff Nurse Relationship Specialty Start Date End Date Caitlyn Bowie MD [facility] [address] [address] PCP - General Internal Medicine 05/06/21 documented as of this encounter
--- OUTSIDE RECORDS SUMMARY | 2024-09-11 11:36 | XMS_ITS ---
Author Organization [facility] Address [address] [address] Care Team Providers Care Recreation Aide Name Role Phone EVELIN RAMSAY Primary Care Provider Yenny Hou Unavailable [phone] REAS[facility]IT [facility] if[facility] disease dept Encounters Encounter Location Date Provider Diagnosis [facility] [address] [address] 06/11/2024 Yenny Elizalde Plan Of Treatment No Information Progress Notes * ONOFRE WATSON:1945 (79 yo F)Acc No.[id number]:06/11/2024 Patient:?CINDA WATSON :1945???Age:79 Y???Sex:Female Address:[address] [place] [address], [address] * true * Date:? Generated for Arely paige/Sebastian/eTransmitting on:?09/11/2024 11:35 AM EST
--- OUTSIDE RECORDS SUMMARY | 2024-09-11 11:36 | XMS_ITS | Encounter Summary ---
Author Organization [facility] Address [address] [place] [address] Care Team Providers Care County Manager Name Role Phone Caitlyn Bowie MD Primary Care Provider +1- [phone] Encounter Details Date Type Department Care Team (Late st Contact Info) Description 10/07/2013 Scanned Document Thoracic Oncology Program at [address] [address] Suzy Kong MD [address] [place] [address] Social History Tobacco Use Types Packs/Day [...] Description 09/30/2024 8:30 PM EDT Procedure visit [facility] [address] [place] [address] [place] [address] 10/31/2024 1:00 PM EDT Telemedicine Cancer Center at [address] [place] [address] Ronald Mills MD 240 [facility] Max A1 [place] [address] documented as of this encounter Visit Diagnoses Not on filedocumented in this encounter Additional Health Concerns Infection Onset Date Last Indicated Resolved Time COVID-19 03/05/2022 03/05/2022 03/15/2022 7:18 PM EDT documented as of this encounter Care Teams County Manager Relationship Specialty Start Date End Date Caitlyn Bowie MD 3400 [facility] 1 [place] [address] PCP - General Internal Medicine 05/06/21 Henry Kelly MD Pulmonary Department 175 [facility], [address] [place] [address] Physician Pulmonary Disease 09/06/17 06/22/20 documented as of this encounter
--- OUTSIDE RECORDS SUMMARY | 2024-09-11 11:36 | XMS_ITS | Encounter Summary ---
Author Organization [facility] and [facility] Address [address] [place] [address] Care Team Providers Care Surgical Elastic Knitter Name Role Phone Caitlyn Bowie MD Primary Care Provider +1- [phone] Encounter Details Date Type Department Care Team (Late st Contact Info) Description 04/28/2015 Scanned Document [facility] Health Information Management [address] [place] [address] External, Provider Social History Tobacco Use Types [...] Description 09/30/2024 8:30 PM EDT Procedure visit [facility] [address] [place] [address] [address] [place] [address] 10/31/2024 1:00 PM EDT Telemedicine Cancer Center at [facility] 240 [facility] Building [address] [place], [place] [address] Ronald Mills MD 240 [facility] A1 [place] [address] documented as of this encounter Visit Diagnoses Not on filedocumented in this encounter Additional Health Concerns Infection Onset Date Last Indicated Resolved Time COVID-19 03/05/2022 03/05/2022 03/15/2022 7:18 PM EDT documented as of this encounter Care Teams Surgical Elastic Knitter Relationship Specialty Start Date End Date Caitlyn Bowie MD 3400 [facility] Max 1 [place] [address] PCP - General Internal Medicine 05/06/21 Henry Kelly MD Pulmonary Department 175 [facility], [address] [place] [address] Physician Pulmonary Disease 09/06/17 06/22/20 documented as of this encounter
--- OUTSIDE RECORDS SUMMARY | 2024-09-11 11:36 | XMS_ITS | Encounter Summary ---
Author Organization [facility] Address [address] [place] [address] Care Team Providers Care Toy Designer Name Role Phone Caitlyn Bowie MD Primary Care Provider +1- [phone] Encounter Details Date Type Department Care Team (Late st Contact Info) Description 01/13/2021 Scanned Document Cancer Center at [address] [address] External, Provider Social History Tobacco Use Types [...] Description 09/30/2024 8:30 PM EDT Procedure visit [facility] [address] [place] [address] [place] [address] 10/31/2024 1:00 PM EDT Telemedicine Cancer Center at [address] [place], [place] [address] Ronald Mills MD [address] [address] documented as of this encounter [...] as of this encounter Care Teams Toy Designer Relationship Specialty Start Date End Date Caitlyn Bowie MD [address] [address] PCP - General Internal Medicine 05/06/21 documented as of this encounter
--- OUTSIDE RECORDS SUMMARY | 2024-09-11 11:36 | XMS_ITS | Encounter Summary ---
Author Organization [facility] Address [address] [place] [address] Care Team Providers Care Director Post Name Role Phone Caitlyn Bowie MD Primary Care Provider +1- [phone] Encounter Details Date Type Department Care Team (Late st Contact Info) Description 05/01/2015 Scanned Document [facility] Health Information Management [address] [place] [address] External, Provider Social History Tobacco Use Types [...] Description 09/30/2024 8:30 PM EDT Procedure visit [facility] [address] [place] [address] [address] [place] [address] 10/31/2024 1:00 PM EDT Telemedicine [facility] 240 [facility] Building [address] [place], [place] [address] Ronald Mills MD 240 [facility] A1 [place] [address] documented as of this encounter Procedures Procedure [...] as of this encounter Care Teams Director Post Relationship Specialty Start Date End Date Caitlyn Bowie MD 3400 [facility] 1 [place] [address] PCP - General Internal Medicine 05/06/21 Henry Kelly MD Pulmonary Department 175 [facility], [address] [place] [address] Physician Pulmonary Disease 09/06/17 06/22/20 documented as of this encounter
--- OUTSIDE RECORDS SUMMARY | 2024-09-11 11:36 | XMS_ITS | Encounter Summary ---
Author Organization [facility] Address [address] [place] [address] Care Team Providers Care Media Law Faculty Member Name Role Phone Caitlyn Bowie MD Primary Care Provider +1- [phone] Encounter Details Date Type Department Care Team (Late st Contact Info) Description 11/09/2020 Scanned Document INTERFACE DEFAULT [address] [place] [address] System, Provider Not In Social History Tobacco [...] Description 09/30/2024 8:30 PM EDT Procedure visit [facility] [address] [place] [address] [address] [place] [address] 10/31/2024 1:00 PM EDT Telemedicine [facility] 240 [facility] [address] [place] [address] Ronald Mills MD 240 [facility] A1 [place] [address] documented as of this encounter Visit Diagnoses Not on filedocumented in this encounter Additional Health Concerns Infection Onset Date Last Indicated Resolved Time COVID-19 03/05/2022 03/05/2022 03/15/2022 7:18 PM EDT Assessment Noted Time PHQ-9 Depression Total Score: 2 11/07/19 19 2:06 PM EDT documented as of this encounter Care Teams Media Law Faculty Member Relationship Specialty Start Date End Date Caitlyn Bowie MD [address] [address] PCP - General Internal Medicine 05/06/21 documented as of this encounter
--- OUTSIDE RECORDS SUMMARY | 2024-09-11 11:36 | XMS_ITS | Encounter Summary ---
Author Organization [facility] and [facility] Address [address] [place] [address] Care Team Providers Care Staff Assistant Name Role Phone Caitlyn Bowie MD Primary Care Provider +1- [phone] Encounter Details Date Type Department Care Team (Late st Contact Info) Description 08/23/2017 Scanned Document [facility] Health Information Management [address] [place] [address] External, Provider Social History Tobacco Use Types [...] 09/30/2024 8:30 PM EDT Procedure visit [facility] [address] [place] [address] [address] [place] [address] 10/31/2024 1:00 PM EDT Telemedicine Cancer Center at [facility] 240 [facility] Building [address] [place], [place] [address] Ronald Mills MD 240 [facility] A1 [place] [address] documented as of this encounter [...] as of this encounter Care Teams Staff Assistant Relationship Specialty Start Date End Date Caitlyn Bowie MD 3400 [facility] 1 [place] [address] PCP - General Internal Medicine 05/06/21 Henry Kelly MD Pulmonary Department 175 [facility], [address] [place] [address] Physician Pulmonary Disease 09/06/17 06/22/20 documented as of this encounter
--- OUTSIDE RECORDS SUMMARY | 2024-09-11 11:36 | XMS_ITS | Encounter Summary ---
Author Organization [facility] Address [address] [place] [address] Care Team Providers Care Processing Assistant Name Role Phone Caitlyn Bowie MD Primary Care Provider +1- [phone] Encounter Details Date Type Department Care Team (Late st Contact Info) Description 11/07/2014 Scanned Document [facility] Health Information Management [address] [place] [address] External, Provider Social History Tobacco Use Types [...] 09/30/2024 8:30 PM EDT Procedure visit [facility] [address] [place] [address] [address] [place] [address] 10/31/2024 1:00 PM EDT Telemedicine Cancer Center at [facility] [address] [facility] [address] [place], [place] [address] Ronald Mills MD 240 [facility] [address]1 [place] [address] documented as of this encounter Visit Diagnoses Not on filedocumented in this encounter Additional Health Concerns Infection Onset Date Last Indicated Resolved Time COVID-19 03/05/2022 03/05/2022 03/15/2022 7:18 PM EDT documented as of this encounter Care Teams Processing Assistant Relationship Specialty Start Date End Date Caitlyn Bowie MD 3400 [facility] [address] 1 [place] [address] PCP - General Internal Medicine 05/06/21 Henry Kelly MD Pulmonary Department 175 [facility], [address] [place] [address] Physician Pulmonary Disease 09/06/17 06/22/20 documented as of this encounter
--- OUTSIDE RECORDS SUMMARY | 2024-09-11 11:36 | XMS_ITS | Encounter Summary ---
Author Organization [facility] Address [address] [place] [address] Care Team Providers Care News Cameraman Name Role Phone Caitlyn Bowie MD Primary Care Provider +1- [phone] Encounter Details Date Type Department Care Team ([facility] st Contact Info) Description 08/26/2014 Documentation [facility] [address] [place] [address] Shilpi Ibarra [address] [place] [address] Social History Tobacco Use Types Packs/Day Years [...] from the original note were not included. [facility] Progress Note This is a 69 y.o. female who was provided services by [facility]. Service Provided By:: Shilpi Ibarra Patient Status: return Length of Appointment: 60 minutes documented in this encounter Plan of Treatment Upcoming Encounters Date Type Department Care Team (Late st Contact Info) Description 09/30/2024 8:30 PM EDT Procedure visit [facility] [address] [facility] [address] [place] [address] 10/31/2024 1:00 PM EDT Telemedicine Cancer Center at [facility] 240 [facility] Building [address] [place] [address] Ronald Mills MD 240 [facility] [address] [place] [address] documented as of this encounter Visit Diagnoses Not on filedocumented in this encounter Additional Health Concerns Infection Onset Date Last Indicated Resolved Time COVID-19 03/05/2022 03/05/2022 03/15/2022 7:18 PM EDT documented as of this encounter Care Teams News Cameraman Relationship Specialty Start Date End Date Caitlyn Bowie MD 3400 [facility] 1 [place] [address] PCP - General Internal Medicine 05/06/21 Henry Kelly MD Pulmonary Department 175 [facility], [address] [place] [address] Physician Pulmonary Disease 09/06/17 06/22/20 documented as of this encounter
--- OUTSIDE RECORDS SUMMARY | 2024-09-11 11:36 | XMS_ITS | Encounter Summary ---
Author Organization [facility] Address [address] [place] [address] Care Team Providers Care Local Company Hazmat Driver Name Role Phone Caitlyn Bowie MD Primary Care Provider +1- [phone] Encounter Details Date Type Department Care Team (Late st Contact Info) Description 11/09/2014 Scanned Document [facility] Health Information Management [address] [place] [address] External, Provider Social History Tobacco Use Types [...] Description 09/30/2024 8:30 PM EDT Procedure visit [facility] [address] [place] [address] [address] [place] [address] 10/31/2024 1:00 PM EDT Telemedicine Cancer Center at [facility] [address] [facility] Building [address] [place], [place] [address] Ronald Mills MD 240 [facility] [address]1 [place] [address] documented as of this encounter Visit Diagnoses Not on filedocumented in this encounter Additional Health Concerns Infection Onset Date Last Indicated Resolved Time COVID-19 03/05/2022 03/05/2022 03/15/2022 7:18 PM EDT documented as of this encounter Care Teams Local Company Hazmat Driver Relationship Specialty Start Date End Date Caitlyn Bowie MD 3400 [facility] [address] 1 [place] [address] PCP - General Internal Medicine 05/06/21 Henry Kelly MD Pulmonary Department 175 [facility], [address] [place] [address] Physician Pulmonary Disease 09/06/17 06/22/20 documented as of this encounter
--- OUTSIDE RECORDS SUMMARY | 2024-09-11 11:36 | XMS_ITS | Encounter Summary ---
Author Organization [facility] Address [address] [place] [address] Care Team Providers Care Lockstitcher Name Role Phone Caitlyn Bowie MD Primary Care Provider +1- [phone] Encounter Details Date Type Department Care Team (Late st Contact Info) Description 04/28/2015 Scanned Document [facility] Health Information Management [address] [place] [address] External, Provider Social History Tobacco Use Types [...] Description 09/30/2024 8:30 PM EDT Procedure visit [facility] [address] [place] [address] [address] [place] [address] 10/31/2024 1:00 PM EDT Telemedicine Cancer Center at [facility] 240 [facility] Building [address] [place], [place] [address] Ronald Mills MD 240 [facility] A1 [place] [address] documented as of this encounter Procedures Procedure Name Priority Date/Time Associated Diagnosis Comments LAB SCAN Routine 04/28/2015 documented in this encounter Results * Lab Scan (04/28/2015) Blood specimen (specimen) us Provider External LAB BLOOD ORDERABLES Edited Re sult - Final [facility] [place], [place], [facility] documented in this encounter Visit Diagnoses Not on filedocumented in this encounter Additional Health Concerns Infection Onset Date Last Indicated Resolved Time COVID-19 03/05/2022 03/05/2022 03/15/2022 7:18 PM EDT documented as of this encounter Care Teams Lockstitcher Relationship Specialty Start Date End Date Caitlyn Bowie MD 3400 [facility] 1 [place] [address] PCP - General Internal Medicine 05/06/21 Henry Kelly MD Pulmonary Department 175 [facility], [address] [place] [address] Physician Pulmonary Disease 09/06/17 06/22/20 documented as of this encounter
--- OUTSIDE RECORDS SUMMARY | 2024-09-11 11:36 | XMS_ITS | Clinical Summary ---
Author Organization [facility] Address [address] [place] [address] Care Team Providers Care Paint Specialist Name Role Phone Caitlyn Bowie Primary Care Provider [phone] Allergies Active Allergy Reactions Criticality Noted Date [...] Throat tightness Throat tightness Throat tightness Ipratropium Leigh Unknown Medium 12/18/2021 Isosorbide Mononitrate 11/23/2020 Other [...] topic Insurance MEDICARE PART A & B [facility] Care Teams Paint Specialist Relationship Specialty Start Date End Date Caitlyn Bowie [address] [place] [address] PCP - General Internal Medicine 07/18/22
--- OUTSIDE RECORDS SUMMARY | 2024-09-11 11:36 | XMS_ITS | Encounter Summary ---
Author Organization [facility] Address [address] [place] [address] Care Team Providers Care Souvenir Assembler Name Role Phone Caitlyn Bowie MD Primary Care Provider +1- [phone] Encounter Details Date Type Department Care Team (Late st Contact Info) Description 10/16/2013 Scanned Document [facility] [address] [facility], 2nd floor [facility], [address] [place], [place] [address] Suzy Kong MD [address] [place] [address] Social History Tobacco Use Types Packs/Day [...] Description 09/30/2024 8:30 PM EDT Procedure visit [facility] [address] [place] [address] [address] [place] [address] 10/31/2024 1:00 PM EDT Telemedicine Cancer Center at [address] [place], [place] [address] Ronald Mills MD 240 [facility] Max [address] [place] [address] documented as of this encounter Visit Diagnoses Not on filedocumented in this encounter Additional Health Concerns Infection Onset Date Last Indicated Resolved Time COVID-19 03/05/2022 03/05/2022 03/15/2022 7:18 PM EDT documented as of this encounter Care Teams Souvenir Assembler Relationship Specialty Start Date End Date Caitlyn Bowie MD 3400 [facility] 1 [place] [address] PCP - General Internal Medicine 05/06/21 Henry Kelly MD Pulmonary Department [address] [place] [address], [address] [place] [address] Physician Pulmonary Disease 09/06/17 06/22/20 documented as of this encounter
--- OUTSIDE RECORDS SUMMARY | 2024-09-11 11:36 | XMS_ITS | Encounter Summary ---
Author Organization [facility] Address [address] [place] [address] Care Team Providers Care Pipe Organ Mechanic Apprentice Name Role Phone Caitlyn Bowie MD Primary Care Provider +1- [phone] Encounter Details Date Type Department Care Team (Late st Contact Info) Description 07/31/2015 Scanned Document [facility] Health Information Management [address] [place] [address] External, Provider Social History Tobacco Use Types [...] Description 09/30/2024 8:30 PM EDT Procedure visit [facility] [address] [place] [address] [address] [place] [address] 10/31/2024 1:00 PM EDT Telemedicine Cancer Center at [facility] 240 [facility] Building [address] [place], [place] [address] Ronald Mills MD 240 [facility] A1 [place] [address] documented as of this encounter Procedures Procedure Name Priority Date/Time Associated Diagnosis Comments NUC MED/PET RESULT SCAN Routine 07/31/2015 documented in this encounter Results * Nuc Med/PET Result Scan (07/31/2015) us Provider External IMG SCAN REPORTS Edited Result - Final [facility] documented in this encounter Visit Diagnoses Not on filedocumented in this encounter Additional Health Concerns Infection Onset Date Last Indicated Resolved Time COVID-19 03/05/2022 03/05/2022 03/15/2022 7:18 PM EDT documented as of this encounter Care Teams Pipe Organ Mechanic Apprentice Relationship Specialty Start Date End Date Caitlyn Bowie MD 3400 [facility] 1 [place] [address] PCP - General Internal Medicine 05/06/21 Henry Kelly MD Pulmonary Department 175 [facility], [address] [place] [address] Physician Pulmonary Disease 09/06/17 06/22/20 documented as of this encounter
--- OUTSIDE RECORDS SUMMARY | 2024-09-11 11:36 | XMS_ITS | Encounter Summary ---
Author Organization [facility] Address [address] [place] [address] Care Team Providers Care Java Analyst Name Role Phone Caityln Bowie MD Primary Care Provider +1- [phone] Encounter Details Date Type Department Care Team (Late st Contact Info) Description 09/18/2020 Scanned Document INTERFACE DEFAULT [address] [place] [address] System, Provider Not In Social History Tobacco [...] Description 09/30/2024 8:30 PM EDT Procedure visit [facility] [address] [place] [address] [address] [place] [address] 10/31/2024 1:00 PM EDT Telemedicine Cancer Center at [facility] 240 [facility] Building [address] [place] [address] Ronald Mills MD 240 [facility] A1 [place] [address] documented as of this encounter Visit Diagnoses Not on filedocumented in this encounter Additional Health Concerns Infection Onset Date Last Indicated Resolved Time COVID-19 03/05/2022 03/05/2022 03/15/2022 7:18 PM EDT Assessment Noted Time PHQ-9 Depression Total Score: 2 11/07/19 19 2:06 PM EDT documented as of this encounter Care Teams Java Analyst Relationship Specialty Start Date End Date Caitlyn Bowie MD [address] [address] PCP - General Internal Medicine 05/06/21 documented as of this encounter
--- OUTSIDE RECORDS SUMMARY | 2024-09-11 11:36 | XMS_ITS | Encounter Summary ---
Author Organization [facility] Address [address] [place] [address] Care Team Providers Care Wildland Fire Fighter Name Role Phone Caitlyn Bowie MD Primary Care Provider +1- [phone] Encounter Details Date Type Department Care Team (Late st Contact Info) Description 02/03/2021 Scanned Document INTERFACE DEFAULT [address] [place] [address] System, Provider Not In Social History Tobacco [...] Description 09/30/2024 8:30 PM EDT Procedure visit [facility] [address] [place] [address] [address] [place] [address] 10/31/2024 1:00 PM EDT Telemedicine Cancer Center at [facility] 240 [facility] [address] [place] [address] Ronald Mills MD 240 [facility] A1 [place] [address] documented as of this encounter [...] documented as of this encounter Care Teams Wildland Fire Fighter Relationship Specialty Start Date End Date Caitlyn Bowie MD [address] [address] PCP - General Internal Medicine 05/06/21 documented as of this encounter
--- OUTSIDE RECORDS SUMMARY | 2024-09-11 11:36 | XMS_ITS | Encounter Summary ---
Author Organization [facility] Address [address] [place] [address] Care Team Providers Care Water Taxi Ferry Operator Name Role Phone Caitlyn Bowie MD Primary Care Provider +1- [phone] Reason for Visit * Reason Comments Other Encounter Details Date Type Department Care Team (Late st Contact Info) Description 01/12/2021 Telephone [facility] at [address] - [address] [phone] Ronald Mills MD [address] [place] [address] Other Social History Tobacco Use Types [...] AM EDT Lab orders were faxed to [facility] @ [phone]. Patient notified by phone. * Telephone Encounter - Nasima Wang - 01/12/2021 8:46 AM EDT Pt called looking to speak with Kirstin RE: lab orders sent to lab [facility] lab Looking to have labs sent there A.S.A.P at some point today She is scheduled with Dr. Mills on January 28 documented in this encounter Plan of Treatment Upcoming Encounters Date Type Department Care Team (Late st Contact Info) Description 09/30/2024 8:30 PM EDT Procedure visit [facility] [address] [place] [address] [address] [place] [address] 10/31/2024 1:00 PM EDT Telemedicine Cancer Center at [facility] [address] [facility] [address] [place], [place] [address] Ronald Mills MD 240 [facility] Max [address]1 [place] [address] documented as of this encounter Visit Diagnoses Not on filedocumented in this encounter Additional Health Concerns Infection Onset Date Last Indicated Resolved Time COVID-19 03/05/2022 03/05/2022 03/15/2022 7:18 PM EDT Assessment Noted Time PHQ-9 Depression Total Score: 2 11/07/19 19 2:06 PM EDT documented as of this encounter Care Teams Water Taxi Ferry Operator Relationship Specialty Start Date End Date Caitlyn Bowie MD 3400 [facility] 1 [place] [address] PCP - General Internal Medicine 05/06/21 documented as of this encounter
--- OUTSIDE RECORDS SUMMARY | 2024-09-11 11:37 | XMS_ITS | Encounter Summary ---
Author Organization [facility] Address [address] [place] [address] Care Team Providers Care Forensic Identification Specialist Name Role Phone Caitlyn Bowie MD Primary Care Provider +1- [phone] Encounter Details Date Type Department Care Team (Late st Contact Info) Description 07/08/2016 Scanned Document [facility] Health Information Management [address] [place] [address] External, Provider Social History Tobacco Use Types [...] Description 09/30/2024 8:30 PM EDT Procedure visit [facility] [address] [place] [address] [address] [place] [address] 10/31/2024 1:00 PM EDT Telemedicine [facility] at [facility] 240 [facility] Building [address] [place], [place] [address] Ronald Mills MD 240 [facility] [address]1 [place] [address] documented as of this encounter Procedures Procedure Name Priority Date/Time Associated Diagnosis Comments LAB SCAN Routine 07/08/2016 documented in this encounter Results * Lab Scan (07/08/2016) Blood specimen (specimen) us Provider External LAB BLOOD ORDERABLES Final Res ult Performing Organization Address City/State/[facility] Co de Phone Number [facility] documented in this encounter Visit Diagnoses Not on filedocumented in this encounter Additional Health Concerns Infection Onset Date Last Indicated Resolved Time COVID-19 03/05/2022 03/05/2022 03/15/2022 7:18 PM EDT documented as of this encounter Care Teams Forensic Identification Specialist Relationship Specialty Start Date End Date Caitlyn Bowie MD 3400 [facility] Max 1 [place] [address] PCP - General Internal Medicine 05/06/21 Henry Kelly MD Pulmonary Department 175 [facility], [address] [place] [address] Physician Pulmonary Disease 09/06/17 06/22/20 documented as of this encounter
--- OUTSIDE RECORDS SUMMARY | 2024-09-11 11:37 | XMS_ITS | Encounter Summary ---
Author Organization [facility] Address [address] [place] [address] Care Team Providers Care City Solicitor Name Role Phone Caitlyn Bowie MD Primary Care Provider +1- [phone] Reason for Referral * Imaging (Routine) - Closed Specialty Diagnoses / Procedures Referred By Contac t Referred To Contact Procedures NM Lung Ventilation Perfusion ([facility]) External, Provider Referral ID Status Reason Start Date Expiration Date Visits Re quested Visits Authorized [id number] Closed 08/22/2016 08/22/2017 4 4 Encounter Details Date Type Department Care Team (Late st Contact Info) Description 08/22/2016 Scanned Document [facility] Oncology Program at [address] [address] External, Provider Social History Tobacco Use Types [...] Description 09/30/2024 8:30 PM EDT Procedure visit [facility] [address] [place] [phone] 10/31/2024 1:00 PM EDT Telemedicine Cancer Center at [facility] [place] [address] [place], [place] [address] Ronald Mills MD [address] [place] [address] documented as of this encounter Procedures Procedure Name Priority Date/Time Associated Diagnosis Comments XRAY RESULT SCAN Routine 07/27/2016 CT RESULT SCAN Routine 07/27/2016 CT RESULT SCAN Routine 07/27/2016 CARDIAC EKG RESULT SCAN Routine 07/27/2016 LAB SCAN Routine 07/27/2016 NM LUNG VENTILATION PERFUSIO N ([facility]) Routine 07/27/2016 documented in this encounter Results * Xray Result Scan (07/27/2016) us Provider External IMG SCAN REPORTS Final Result Performing Organization Address [facility]/ZIP Co de Phone Number [facility] * CT Result Scan (07/27/2016) us Provider External IMG SCAN REPORTS Final Result Performing Organization Address [facility]/ZIP Co de Phone Number [facility] * Cardiac EKG Result Scan (07/27/2016) us Provider External CV CARDIAC REPORT (CVR) Final Result Performing Organization Address [facility]/ZIP Co de Phone Number [facility] [place], [place], [facility] * CT Result Scan (07/27/2016) us Provider External IMG SCAN REPORTS Final Result Performing Organization Address [facility]/ZIP Co de Phone Number [facility] * Lab Scan (07/27/2016) Blood specimen (specimen) us Provider External LAB BLOOD ORDERABLES Final Res ult [facility] [place], [place], [place] * NM Lung Ventilation Perfusion ([facility]) (07/27/2016) Anatomical Region Laterality Modality Chest, Lung Nuclear Medicine us Provider External IMG NM ORDERABLES Final Result documented in this encounter Visit Diagnoses Not on filedocumented in this encounter Additional Health Concerns Infection Onset Date Last Indicated Resolved Time COVID-19 03/05/2022 03/05/2022 03/15/2022 7:18 PM EDT documented as of this encounter Care Teams City Solicitor Relationship Specialty Start Date End Date Caitlyn Bowie MD 3400 [facility] 1 [place] [address] PCP - General Internal Medicine 05/06/21 Henry Kelly MD Pulmonary Department 175 [facility], [address] [place] [address] Physician Pulmonary Disease 09/06/17 06/22/20 documented as of this encounter
--- OUTSIDE RECORDS SUMMARY | 2024-09-11 11:37 | XMS_ITS | Encounter Summary ---
Author Organization [facility] Address [address] [place] [address] Care Team Providers Care Trim Installer Name Role Phone Caitlyn Bowie MD Primary Care Provider +1- [phone] Encounter Details Date Type Department Care Team (Late st Contact Info) Description 10/10/2016 Scanned Document [facility] Health Information Management [address] [place] [address] External, Provider Social History Tobacco Use Types [...] Description 09/30/2024 8:30 PM EDT Procedure visit [facility] [address] [place] [address] [address] [place] [address] 10/31/2024 1:00 PM EDT Telemedicine Cancer Center at [facility] 240 [facility] Building [address] [place], [place] [address] Ronald Mills MD 240 [facility] [address]1 [place] [address] documented as of this encounter Visit Diagnoses Not on filedocumented in this encounter Additional Health Concerns Infection Onset Date Last Indicated Resolved Time COVID-19 03/05/2022 03/05/2022 03/15/2022 7:18 PM EDT documented as of this encounter Care Teams Trim Installer Relationship Specialty Start Date End Date Caitlyn Bowie MD 3400 [facility] [address] 1 [place] [address] PCP - General Internal Medicine 05/06/21 Henry Kelly MD Pulmonary Department 175 [place] [facility], [address] [place] [address] Physician Pulmonary Disease 09/06/17 06/22/20 documented as of this encounter
--- OUTSIDE RECORDS SUMMARY | 2024-09-11 11:37 | XMS_ITS | Encounter Summary ---
Author Organization [facility] and [facility] Address [address] [place] [address] Care Team Providers Care Beef Cattle Farmer Name Role Phone Caitlyn Bowie MD Primary Care Provider +1- [phone] Encounter Details Date Type Department Care Team (Late st Contact Info) Description 01/26/2018 Scanned Document [facility] Health Information Management [address] [place] [phone] External, Provider Social History Tobacco Use Types [...] Description 09/30/2024 8:30 PM EDT Procedure visit [facility] [address] [place] [address] [address] [place] [address] 10/31/2024 1:00 PM EDT Telemedicine [facility] at [facility] [address] [facility] Building [address] [place], [place] [address] Ronald Mills MD 240 [facility] [address] [place] [address] documented as of this encounter [...] documented as of this encounter Care Teams Beef Cattle Farmer Relationship Specialty Start Date End Date Caitlyn Bowie MD 3400 [facility] 1 [place] [address] PCP - General Internal Medicine 05/06/21 Henry Kelly MD Pulmonary Department 175 [facility], [address] [place] [address] Physician Pulmonary Disease 09/06/17 06/22/20 documented as of this encounter
--- OUTSIDE RECORDS SUMMARY | 2024-09-11 11:37 | XMS_ITS | Encounter Summary ---
Author Organization [facility] and [facility] Address [address] [place] [address] Care Team Providers Care Jig Maker Name Role Phone Caitlyn Bowie MD Primary Care Provider +1- [phone] Encounter Details Date Type Department Care Team (Late st Contact Info) Description 02/19/2015 Scanned Document [facility] Health Information Management [address] [place] [address] External, Provider Social History Tobacco Use Types [...] Description 09/30/2024 8:30 PM EDT Procedure visit [facility] [address] [place] [address] [address] [place] [address] 10/31/2024 1:00 PM EDT Telemedicine [facility] at [facility] 240 [facility] Building [address] [place], [place] [address] Ronald Mills MD 240 [facility] [address]1 [place] [address] documented as of this encounter Procedures Procedure Name Priority Date/Time Associated Diagnosis Comments LAB SCAN Routine 02/19/2015 documented in this encounter Results * Lab Scan (02/19/2015) Blood specimen (specimen) us Provider External LAB BLOOD ORDERABLES Final Res ult Performing Organization Address City/State/[facility] Co de Phone Number [facility] documented in this encounter Visit Diagnoses Not on filedocumented in this encounter Additional Health Concerns Infection Onset Date Last Indicated Resolved Time COVID-19 03/05/2022 03/05/2022 03/15/2022 7:1 8 PM EDT documented as of this encounter Care Teams Jig Maker Relationship Specialty Start Date End Date Caitlyn Bowie MD 3400 [facility] [address] 1 [place] [address] PCP - General Internal Medicine 05/06/21 Henry Kelly MD Pulmonary Department 175 [facility], [address] [place] [address] Physician Pulmonary Disease 09/06/17 06/22/20 documented as of this encounter
--- OUTSIDE RECORDS SUMMARY | 2024-09-11 11:37 | XMS_ITS | Encounter Summary ---
Author Organization [facility] and [facility] Address [address] [place] [address] Care Team Providers Care City Alderman Name Role Phone Caitlyn Bowie MD Primary Care Provider +1- [phone] Encounter Details Date Type Department Care Team (Late st Contact Info) Description 01/27/2018 Scanned Document [facility] Health Information Management [address] [place] [address] External, Provider Social History Tobacco Use Types [...] Description 09/30/2024 8:30 PM EDT Procedure visit [facility] [address] [place] [address] [address] [place] [address] 10/31/2024 1:00 PM EDT Telemedicine [facility] at [facility] 240 [facility] [address] [place], [place] [phone] Ronald Mills MD 240 [facility] A1 [place] [address] documented as of this encounter Visit Diagnoses Not on filedocumented in this encounter Additional Health Concerns Infection Onset Date Last Indicated Resolved Time COVID-19 03/05/2022 03/05/2022 03/15/2022 7:18 PM EDT documented as of this encounter Care Teams City Alderman Relationship Specialty Start Date End Date Caitlyn Bwoie MD 3400 [facility] 1 [place] [address] PCP - General Internal Medicine 05/06/21 Henry Kelly MD Pulmonary Department 175 [facility], [address] [place] [address] Physician Pulmonary Disease 09/06/17 06/22/20 documented as of this encounter
--- OUTSIDE RECORDS SUMMARY | 2024-09-11 11:37 | XMS_ITS | Encounter Summary ---
Author Organization [facility] and [facility] Address [address] [place] [address] Care Team Providers Care Vice President Quality Assurance Name Role Phone Caitlyn Bowie MD Primary Care Provider +1- [phone] Encounter Details Date Type Department Care Team (Late st Contact Info) Description 07/27/2016 Scanned Document Thoracic Oncology Program at [address] [address] Suzy Kong MD [address] [place] [phone] Social History Tobacco Use Types Packs/Day [...] Description 09/30/2024 8:30 PM EDT Procedure visit [facility] [address] [place] [address] [address] [place] [address] 10/31/2024 1:00 PM EDT Telemedicine Cancer Center at [address] [place] [address] Ronald Mills MD [address] [place] [address], [place] [address] documented as of this encounter Visit Diagnoses Not on filedocumented in this encounter Additional Health Concerns Infection Onset Date Last Indicated Resolved Time COVID-19 03/05/2022 03/05/2022 03/15/2022 7:18 PM EDT documented as of this encounter Care Teams Vice President Quality Assurance Relationship Specialty Start Date End Date Caitlyn Bowie MD 3400 [facility] 1 [place] [address] PCP - General Internal Medicine 05/06/21 Henry Kelly MD Pulmonary Department [address] [place] [address], [address] [place] [address] Physician Pulmonary Disease 09/06/17 06/22/20 documented as of this encounter
--- OUTSIDE RECORDS SUMMARY | 2024-09-11 11:37 | XMS_ITS | Encounter Summary ---
Author Organization [facility] and [facility] Address [address] [place] [address] Care Team Providers Care Analytical Laboratory Technician Name Role Phone Caitlyn Bowie MD Primary Care Provider +1- [phone] Encounter Details Date Type Department Care Team (Late st Contact Info) Description 06/17/2016 Scanned Document [facility] Health Information Management [address] [place] [phone] External, Provider Social History Tobacco Use Types [...] Description 09/30/2024 8:30 PM EDT Procedure visit [facility] [address] [place] [address] [address] [place] [address] 10/31/2024 1:00 PM EDT Telemedicine Cancer Center at [facility] 240 [facility] Building [address] [place], [place] [address] Ronald Mills MD 240 [facility] [address]1 [place] [address] documented as of this encounter Visit Diagnoses Not on filedocumented in this encounter Additional Health Concerns Infection Onset Date Last Indicated Resolved Time COVID-19 03/05/2022 03/05/2022 03/15/2022 7:18 PM EDT documented as of this encounter Care Teams Analytical Laboratory Technician Relationship Specialty Start Date End Date Caitlyn Bowie MD 3400 [facility] Max 1 [place] [address] PCP - General Internal Medicine 05/06/21 Henry Kelly MD Pulmonary Department 175 [facility], [address] [place] [address] Physician Pulmonary Disease 09/06/17 06/22/20 documented as of this encounter
--- OUTSIDE RECORDS SUMMARY | 2024-09-11 11:37 | XMS_ITS | Encounter Summary ---
Author Organization [facility] and [facility] Address [address] [place] [address] Care Team Providers Care Dopster Name Role Phone Caitlyn Bowei MD Primary Care Provider +1- [phone] Encounter Details Date Type Department Care Team (Late st Contact Info) Description 01/26/2018 Scanned Document [facility] Health Information Management [address] [place] [phone] External, Provider Social History Tobacco Use Types [...] Description 09/30/2024 8:30 PM EDT Procedure visit [facility] [address] [place] [address] [address] [place] [address] 10/31/2024 1:00 PM EDT Telemedicine [facility] at [facility] 240 [facility] Building [address] [place], [place] [phone] Ronald Mills MD 240 [facility] A1 [place] [address] documented as of this encounter [...] documented as of this encounter Care Teams Dopster Relationship Specialty Start Date End Date Caitlyn Bowie MD 3400 [facility] 1 [place] [address] PCP - General Internal Medicine 05/06/21 Henry Kelly MD Pulmonary Department 175 [facility], [address] [place] [address] Physician Pulmonary Disease 09/06/17 06/22/20 documented as of this encounter
--- OUTSIDE RECORDS SUMMARY | 2024-09-11 11:37 | XMS_ITS | Encounter Summary ---
Author Organization [facility] and [facility] Address [address] [place] [address] Care Team Providers Care Transportation Aid Name Role Phone Caitlyn Bowie MD Primary Care Provider +1- [phone] Encounter Details Date Type Department Care Team (Late st Contact Info) Description 06/17/2016 Scanned Document [facility] Health Information Management [address] [place] [address] External, Provider Social History Tobacco Use Types [...] Description 09/30/2024 8:30 PM EDT Procedure visit [facility] [address] [place] [address] [address] [place] [address] 10/31/2024 1:00 PM EDT Telemedicine [facility] at [facility] 240 [facility] Building [address] [place], [place] [address] Ronald Mills MD 240 [facility] A1 [place] [address] documented as of this encounter Procedures Procedure Name Priority Date/Time Associated Diagnosis Comments XRAY RESULT SCAN Routine 06/17/2016 documented in this encounter Results * Xray Result Scan (06/17/2016) us Provider External IMG SCAN REPORTS Final Result Performing Organization Address City/State/[facility] Co de Phone Number [facility] [place], [facility] documented in this encounter Visit Diagnoses Not on filedocumented in this encounter Additional Health Concerns Infection Onset Date Last Indicated Resolved Time COVID-19 03/05/2022 03/05/2022 03/15/2022 7:18 PM EDT documented as of this encounter Care Teams Transportation Aid Relationship Specialty Start Date End Date Caitlyn Bowie MD 3400 [facility] 1 [place] [address] PCP - General Internal Medicine 05/06/21 Henry Kelly MD Pulmonary Department 175 [facility], [address] [place] [address] Physician Pulmonary Disease 09/06/17 06/22/20 documented as of this encounter
--- OUTSIDE RECORDS SUMMARY | 2024-09-11 11:37 | XMS_ITS | Encounter Summary ---
Author Organization [facility] and [facility] Address [address] [place] [address] Care Team Providers Care Seal Delivery Vehicle Officer Name Role Phone Caitlyn Bowie MD Primary Care Provider +1- [phone] Encounter Details Date Type Department Care Team (Late st Contact Info) Description 01/28/2018 Scanned Document [facility] Health Information Management [address] [place] [phone] External, Provider Social History Tobacco Use Types [...] Description 09/30/2024 8:30 PM EDT Procedure visit [facility] [address] [place] [address] [address] [place] [address] 10/31/2024 1:00 PM EDT Telemedicine Cancer Center at [facility] 240 [facility] Building [address] [place], [place] [phone] Ronald Mills MD 240 [facility] A1 [place] [address] documented as of this encounter [...] documented as of this encounter Care Teams Seal Delivery Vehicle Officer Relationship Specialty Start Date End Date Caitlyn Bowie MD 3400 [facility] 1 [place] [address] PCP - General Internal Medicine 05/06/21 Henry Kelly MD Pulmonary Department 175 [facility], [address] [place] [address] Physician Pulmonary Disease 09/06/17 06/22/20 documented as of this encounter
--- OUTSIDE RECORDS SUMMARY | 2024-09-11 11:37 | XMS_ITS | Encounter Summary ---
Author Organization [facility] and [facility] Address 20 [place] [address] Care Team Providers Care Grips Name Role Phone Caitlyn Bowie MD Primary Care Provider +1- [phone] Encounter Details Date Type Department Care Team (Late st Contact Info) Description 07/27/2016 Scanned Document Thoracic Oncology Program at [address] [address] Suzy Kong MD [address] [place] [phone] Social History Tobacco Use Types Packs/Day [...] Description 09/30/2024 8:30 PM EDT Procedure visit [facility] [address] [place] [address] [address] [place] [address] 10/31/2024 1:00 PM EDT Telemedicine Cancer Center at [address] [place] [address] Ronald Mills MD [address] [place] [address], [place] [address] documented as of this encounter Visit Diagnoses Not on filedocumented in this encounter Additional Health Concerns Infection Onset Date Last Indicated Resolved Time COVID-19 03/05/2022 03/05/2022 03/15/2022 7:18 PM EDT documented as of this encounter Care Teams Grips Relationship Specialty Start Date End Date Caitlyn Bowie MD 3400 [facility] 1 [place] [address] PCP - General Internal Medicine 05/06/21 Henry Kelly MD Pulmonary Department [address] [place] [address], [address] [place] [address] Physician Pulmonary Disease 09/06/17 06/22/20 documented as of this encounter
--- OUTSIDE RECORDS SUMMARY | 2024-09-11 11:37 | XMS_ITS | Encounter Summary ---
Author Organization [facility] and [facility] Address [address] [place] [address] Care Team Providers Care Commander Police Reserves Name Role Phone Caitlyn Bowie MD Primary Care Provider +1- [phone] Encounter Details Date Type Department Care Team (Late st Contact Info) Description 03/11/2015 Scanned Document [facility] Health Information Management [address] [place] [address] External, Provider Social History Tobacco Use Types [...] Description 09/30/2024 8:30 PM EDT Procedure visit [facility] [address] [place] [address] [address] [place] [address] 10/31/2024 1:00 PM EDT Telemedicine Cancer Center at [facility] 240 [facility] Building [address] [place], [place] [address] Ronald Mills MD 240 [facility] A1 [place] [address] documented as of this encounter Procedures Procedure Name Priority Date/Time Associated Diagnosis Comments LAB SCAN Routine 03/11/2015 documented in this encounter Results * Lab Scan (03/11/2015) Blood specimen (specimen) us Provider External LAB BLOOD ORDERABLES Edited Re sult - Final [facility] [place], [place], [facility] documented in this encounter Visit Diagnoses Not on filedocumented in this encounter Additional Health Concerns Infection Onset Date Last Indicated Resolved Time COVID-19 03/05/2022 03/05/2022 03/15/2022 7:18 PM EDT documented as of this encounter Care Teams Commander Police Reserves Relationship Specialty Start Date End Date Caitlyn Bowie MD 3400 [facility] 1 [place] [address] PCP - General Internal Medicine 05/06/21 Henry Kelly MD Pulmonary Department 175 [facility], [address] [place] [address] Physician Pulmonary Disease 09/06/17 06/22/20 documented as of this encounter
--- OUTSIDE RECORDS SUMMARY | 2024-09-11 11:37 | XMS_ITS | Encounter Summary ---
Author Organization [facility] and [facility] Address [address] [place] [address] Care Team Providers Care Ball Mill Mixer Name Role Phone Caitlyn Bowie MD Primary Care Provider +1- [phone] Encounter Details Date Type Department Care Team (Late st Contact Info) Description 03/13/2015 Scanned Document [facility] Health Information Management [address] [place] [phone] External, Provider Social History Tobacco Use Types [...] Description 09/30/2024 8:30 PM EDT Procedure visit [facility] [address] [place] [address] [address] [place] [address] 10/31/2024 1:00 PM EDT Telemedicine [facility] at [facility] 240 [facility] Building [address] [place], [place] [address] Ronald Mills MD 240 [facility] [address]1 [place] [address] documented as of this encounter Procedures Procedure Name Priority Date/Time Associated Diagnosis Comments LAB SCAN Routine 02/16/2015 LAB SCAN Routine 02/16/2015 documented in this encounter Results * Lab Scan (02/16/2015) Blood specimen (specimen) Provider External LAB BLOOD ORDERABLES Final Res ult Performing Organization Address [facility] Co de Phone Number [facility] * Lab Scan (02/16/2015) Blood specimen (specimen) Provider External LAB BLOOD ORDERABLES Final Res ult Performing Organization Address [facility] Co de Phone Number [facility] documented in this encounter Visit Diagnoses Not on filedocumented in this encounter Additional Health Concerns Infection Onset Date Last Indicated Resolved Time COVID-19 03/05/2022 03/05/2022 03/15/2022 7:18 PM EDT documented as of this encounter Care Teams Ball Mill Mixer Relationship Specialty Start Date End Date Caitlyn Bowie MD 3400 [facility] 1 [place] [address] PCP - General Internal Medicine 05/06/21 Henry Kelly MD Pulmonary Department 175 [facility], [address] [place] [address] Physician Pulmonary Disease 09/06/17 06/22/20 documented as of this encounter
--- OUTSIDE RECORDS SUMMARY | 2024-09-11 11:37 | XMS_ITS | Encounter Summary ---
Author Organization [facility] and [facility] Address [address] [place] [address] Care Team Providers Care Parts Cataloguer Name Role Phone Caitlyn Bowie MD Primary Care Provider +1- [phone] Encounter Details Date Type Department Care Team (Late st Contact Info) Description 01/27/2018 Scanned Document [facility] Health Information Management [address] [place] [phone] External, Provider Social History Tobacco Use Types [...] Description 09/30/2024 8:30 PM EDT Procedure visit [facility] [address] [place] [address] [address] [place] [address] 10/31/2024 1:00 PM EDT [facility]icine [facility] 240 [facility] Building [address] [place], [place] [phone] Ronald Mills MD 240 [facility] [address]1 [place] [address] documented as of this encounter [...] as of this encounter Care Teams Parts Cataloguer Relationship Specialty Start Date End Date Caitlyn Bowie MD 3400 [facility] 1 [place] [address] PCP - General Internal Medicine 05/06/21 Henry Kelly MD Pulmonary Department 175 [facility], [address] [place] [address] Physician Pulmonary Disease 09/06/17 06/22/20 documented as of this encounter
--- OUTSIDE RECORDS SUMMARY | 2024-09-11 11:37 | XMS_ITS | Encounter Summary ---
Author Organization [facility] and [facility] Address [address] [place] [address] Care Team Providers Care Kapok And Cotton Machine Operator Name Role Phone Caitlyn Bowie MD Primary Care Provider +1- [phone] Encounter Details Date Type Department Care Team (Late st Contact Info) Description 12/14/2016 Scanned Document [facility] Health Information Management [address] [place] [phone] External, Provider Social History Tobacco Use Types [...] Description 09/30/2024 8:30 PM EDT Procedure visit [facility] [address] [place] [address] [address] [place] [address] 10/31/2024 1:00 PM EDT Telemedicine [facility] 240 [facility] Building [address] [place], [place] [address] Ronald Mills MD 240 [facility] A1 [place] [address] documented as of this encounter Procedures Procedure [...] documented as of this encounter Care Teams Kapok And Cotton Machine Operator Relationship Specialty Start Date End Date Caitlyn Bowie MD 3400 [facility] 1 [place] [address] PCP - General Internal Medicine 05/06/21 Henry Kelly MD Pulmonary Department 175 [facility], [address] [place] [address] Physician Pulmonary Disease 09/06/17 06/22/20 documented as of this encounter
--- OUTSIDE RECORDS SUMMARY | 2024-09-11 11:37 | XMS_ITS | Encounter Summary ---
Author Organization [facility] Address [address] [place] [address] Care Team Providers Care Wiener Packer Name Role Phone Caitlyn Bowie MD Primary Care Provider +1- [phone] Encounter Details Date Type Department Care Team (Late st Contact Info) Description 12/04/2014 Scanned Document [facility] Health Information Management [address] [place] [phone] External, Provider Social History Tobacco Use Types [...] Description 09/30/2024 8:30 PM EDT Procedure visit [facility] [address] [place] [address] [address] [place] [address] 10/31/2024 1:00 PM EDT Telemedicine [facility] at [facility] [address] [facility] [address] [place], [place] [address] Ronald Mills MD 240 [facility] A1 [place] [address] documented as of this encounter Procedures Procedure Name Priority Date/Time Associated Diagnosis Comments LAB SCAN Routine 12/04/2014 documented in this encounter Results * Lab Scan (12/04/2014) Blood specimen (specimen) us Provider External LAB BLOOD ORDERABLES Final Res ult Performing Organization Address City/State/[facility] Co de Phone Number [facility] documented in this encounter Visit Diagnoses Not on filedocumented in this encounter Additional Health Concerns Infection Onset Date Last Indicated Resolved Time COVID-19 03/05/2022 03/05/2022 03/15/2022 7:18 PM EDT documented as of this encounter Care Teams Wiener Packer Relationship Specialty Start Date End Date Caitlyn Bowie MD 3400 [facility] [address] 1 [place] [address] PCP - General Internal Medicine 05/06/21 Henry Kelly MD Pulmonary Department 175 [facility], [address] [place] [address] Physician Pulmonary Disease 09/06/17 06/22/20 documented as of this encounter
--- OUTSIDE RECORDS SUMMARY | 2024-09-11 11:37 | XMS_ITS | Encounter Summary ---
Author Organization [facility] and [facility] Address [address] [place] [address] Care Team Providers Care Orthopedic Physical Therapist Name Role Phone Caitlyn Bowie MD Primary Care Provider +1- [phone] Encounter Details Date Type Department Care Team (Late st Contact Info) Description 01/26/2018 Scanned Document [facility] Health Information Management [address] [place] [address] External, Provider Social History Tobacco Use Types [...] Description 09/30/2024 8:30 PM EDT Procedure visit [facility] [address] [place] [address] [address] [place] [address] 10/31/2024 1:00 PM EDT Telemedicine Cancer Center at [facility] 240 [facility] Building [address] [place], [place] [address] Ronald Mills MD 240 [facility] [address]1 [place] [address] documented as of [...] documented as of this encounter Care Teams Orthopedic Physical Therapist Relationship Specialty Start Date End Date Caitlyn Bowie MD 3400 [facility] 1 [place] [address] PCP - General Internal Medicine 05/06/21 Henry Kelly MD Pulmonary Department 175 [facility], [address] [place] [address] Physician Pulmonary Disease 09/06/17 06/22/20 documented as of this encounter
--- OUTSIDE RECORDS SUMMARY | 2024-09-11 11:37 | XMS_ITS | Encounter Summary ---
Author Organization [facility] and [facility] Address [address] [place] [address] Care Team Providers Care Director Of Mechanical Engineering Name Role Phone Caitlyn Bowie MD Primary Care Provider +1- [phone] Encounter Details Date Type Department Care Team (Late st Contact Info) Description 12/14/2016 Scanned Document [facility] Health Information Management [address] [place] [address] External, Provider Social History Tobacco Use Types [...] Description 09/30/2024 8:30 PM EDT Procedure visit [facility] [address] [place] [address] [address] [place] [address] 10/31/2024 1:00 PM EDT Telemedicine [facility] at [facility] 240 [facility] [address] [place], [place] [address] Ronald Mills MD 240 [facility] A1 [place] [address] documented as of this encounter Visit Diagnoses Not on filedocumented in this encounter Additional Health Concerns Infection Onset Date Last Indicated Resolved Time COVID-19 03/05/2022 03/05/2022 03/15/2022 7:18 PM EDT documented as of this encounter Care Teams Director Of Mechanical Engineering Relationship Specialty Start Date End Date Caitlyn Bowie MD [address] [facility] [address] 1 [place] [address] PCP - General Internal Medicine 05/06/21 Henry Kelly MD Pulmonary Department 175 [facility], [address] [place] [address] Physician Pulmonary Disease 09/06/17 06/22/20 documented as of this encounter
--- OUTSIDE RECORDS SUMMARY | 2024-09-11 11:37 | XMS_ITS | Encounter Summary ---
Author Organization [facility] Address [address] [place] [address] Care Team Providers Care Crane Crew Supervisor Name Role Phone Ciatlyn Bowie MD Primary Care Provider +1- [phone] Encounter Details Date Type Department Care Team (Late st Contact Info) Description 02/01/2018 Scanned Document [facility] Health Information Management [address] [place] [address] External, Provider Social History Tobacco Use Types [...] Description 09/30/2024 8:30 PM EDT Procedure visit [facility] [address] [place] [address] [address] [place] [address] 10/31/2024 1:00 PM EDT Telemedicine Cancer Center at [facility] 240 [facility] Building [address] [place], [place] [address] Ronald Mills MD 240 [facility] A1 [place] [address] documented as of this encounter [...] as of this encounter Care Teams Crane Crew Supervisor Relationship Specialty Start Date End Date Caitlyn Bowie MD 3400 [facility] 1 [place] [address] PCP - General Internal Medicine 05/06/21 Henry Kelly MD Pulmonary Department 175 [facility], [address] [place] [address] Physician Pulmonary Disease 09/06/17 06/22/20 documented as of this encounter
--- OUTSIDE RECORDS SUMMARY | 2024-09-11 11:37 | XMS_ITS | Encounter Summary ---
Author Organization [facility] and [facility] Address [address] [place] [address] Care Team Providers Care Care Consultant Name Role Phone Caitlyn Bowie MD Primary Care Provider +1- [phone] Encounter Details Date Type Department Care Team (Late st Contact Info) Description 01/30/2018 Scanned Document [facility] Health Information Management [address] [place] [address] External, Provider Social History Tobacco Use Types [...] Description 09/30/2024 8:30 PM EDT Procedure visit [facility] [address] [place] [address] [address] [place] [address] 10/31/2024 1:00 PM EDT Telemedicine [facility] 240 [facility] Building [address] [place], [place] [address] Ronald Mills MD 240 [facility] A1 [place] [address] documented as of this [...] as of this encounter Care Teams Care Consultant Relationship Specialty Start Date End Date Caitlyn Bowie MD 3400 [facility] 1 [place] [address] PCP - General Internal Medicine 05/06/21 Henry Kelly MD Pulmonary Department 175 [facility], [address] [place] [address] Physician Pulmonary Disease 09/06/17 06/22/20 documented as of this encounter
--- OUTSIDE RECORDS SUMMARY | 2024-09-11 11:37 | XMS_ITS | Encounter Summary ---
Author Organization [facility] and [facility] Address [address] [place] [address] Care Team Providers Care Coil Rewind Machine Operator Name Role Phone Caitlyn Bowie MD Primary Care Provider +1- [phone] Encounter Details Date Type Department Care Team (Late st Contact Info) Description 02/02/2018 Scanned Document [facility] Health Information Management [address] [place] [address] External, Provider Social History Tobacco Use Types [...] Description 09/30/2024 8:30 PM EDT Procedure visit [facility] [address] [place] [address] [address] [place] [address] 10/31/2024 1:00 PM EDT Telemedicine [facility] Center at [facility] 240 [facility] Building [address] [place], [place] [address] Ronald Mills MD 240 [facility] A1 [place] [address] documented as of this encounter Visit Diagnoses Not on filedocumented in this encounter Additional Health Concerns Infection Onset Date Last Indicated Resolved Time COVID-19 03/05/2022 03/05/2022 03/15/2022 7:18 PM EDT documented as of this encounter Care Teams Coil Rewind Machine Operator Relationship Specialty Start Date End Date Caitlyn Bowie MD 3400 [facility] 1 [place] [address] PCP - General Internal Medicine 05/06/21 Henry Kelly MD Pulmonary Department 175 [facility], [address] [place] [address] Physician Pulmonary Disease 09/06/17 06/22/20 documented as of this encounter
--- OUTSIDE RECORDS SUMMARY | 2024-09-11 11:37 | XMS_ITS | Encounter Summary ---
Author Organization [facility] and [facility] Address [address] [place] [address] Care Team Providers Care Video Game Developer Name Role Phone Caitlyn Bowie MD Primary Care Provider +1- [phone] Encounter Details Date Type Department Care Team (Late st Contact Info) Description 01/28/2018 Scanned Document [facility] Health Information Management [address] [place] [address] External, Provider Social History Tobacco Use Types [...] Description 09/30/2024 8:30 PM EDT Procedure visit [facility] [address] [place] [address] [address] [place] [address] 10/31/2024 1:00 PM EDT Telemedicine Cancer [facility] at [facility] [address] [facility] Building [address] [place], [place] [phone] Ronald Mills MD 240 [facility] [address]1 [place] [address] documented as of this encounter Visit Diagnoses Not on filedocumented in this encounter Additional Health Concerns Infection Onset Date Last Indicated Resolved Time COVID-19 03/05/2022 03/05/2022 03/15/2022 7:18 PM EDT documented as of this encounter Care Teams Video Game Developer Relationship Specialty Start Date End Date Caitlyn Bowie MD 3400 [facility] 1 [place] [address] PCP - General Internal Medicine 05/06/21 Henry Kelly MD Pulmonary Department 175 [facility], [address] [place] [address] Physician Pulmonary Disease 09/06/17 06/22/20 documented as of this encounter
--- OUTSIDE RECORDS SUMMARY | 2024-09-11 11:37 | XMS_ITS | Encounter Summary ---
Author Organization [facility] and [facility] Address [address] [place] [address] Care Team Providers Care Director Of Development Name Role Phone Caitlyn Bowie MD Primary Care Provider +1- [phone] Encounter Details Date Type Department Care Team (Late st Contact Info) Description 12/16/2016 Scanned Document [facility] Health Information Management [address] [place] [address] External, Provider Social History Tobacco Use Types [...] Description 09/30/2024 8:30 PM EDT Procedure visit [facility] [address] [place] [address] [address] [place] [address] 10/31/2024 1:00 PM EDT Telemedicine Cancer Center at [facility] 240 [facility] Building [address] [place], [place] [address] Ronald Mills MD 240 [facility] A1 [place] [address] documented as of this encounter Procedures Procedure [...] this encounter Care Teams Director Of Development Relationship Specialty Start Date End Date Caitlyn Bowie MD 3400 [facility] 1 [place] [address] PCP - General Internal Medicine 05/06/21 Henry Kelly MD Pulmonary Department 175 [facility], [address] [place] [address] Physician Pulmonary Disease 09/06/17 06/22/20 documented as of this encounter
--- OUTSIDE RECORDS SUMMARY | 2024-09-11 11:37 | XMS_ITS | Encounter Summary ---
Author Organization [facility] Address [address] [place] [address] Care Team Providers Care Hand Flesher Name Role Phone Caitlyn Bowie MD Primary Care Provider +1- [phone] Encounter Details Date Type Department Care Team (Late st Contact Info) Description 04/04/2016 Scanned Document [facility] Health Information Management [address] [place] [address] External, Provider Social History Tobacco Use Types [...] Description 09/30/2024 8:30 PM EDT Procedure visit [facility] [address] [place] [address] [address] [place] [address] 10/31/2024 1:00 PM EDT Telemedicine [facility] at [facility] 240 [facility] Building [address] [place], [place] [address] Ronald Mills MD 240 [facility] A1 [place] [address] documented as of this encounter Procedures Procedure Name Priority Date/Time Associated Diagnosis Comments LAB SCAN Routine 04/04/2016 documented in this encounter Results * Lab Scan (04/04/2016) Blood specimen (specimen) us Provider External LAB BLOOD ORDERABLES Final Res ult Performing Organization Address City/State/[facility] Co de Phone Number [facility] documented in this encounter Visit Diagnoses Not on filedocumented in this encounter Additional Health Concerns Infection Onset Date Last Indicated Resolved Time COVID-19 03/05/2022 03/05/2022 03/15/2022 7:18 PM EDT documented as of this encounter Care Teams Hand Flesher Relationship Specialty Start Date End Date Caitlyn Bowie MD 3400 [facility] [address] 1 [place] [address] PCP - General Internal Medicine 05/06/21 Henry Kelly MD Pulmonary Department 175 [facility], [address] [place] [address] Physician Pulmonary Disease 09/06/17 06/22/20 documented as of this encounter
--- OUTSIDE RECORDS SUMMARY | 2024-09-11 11:37 | XMS_ITS | Encounter Summary ---
Author Organization [facility] Address [address] [place] [address] Care Team Providers Care Paper Counter Name Role Phone Caitlyn Bowie MD Primary Care Provider +1- [phone] Encounter Details Date Type Department Care Team (Late st Contact Info) Description 03/26/2015 Scanned Document Cardiovascular Medicine at [address] [place] [address] Norma Renee MD [address] [place] [phone] Social History Tobacco Use Types Packs/Day Years [...] Description 09/30/2024 8:30 PM EDT Procedure visit [facility] [address] [place] [address] [address] [place] [address] 10/31/2024 1:00 PM EDT Telemedicine [facility] 240 [facility] [address] [place] [address] Ronald Mills MD 240 [facility] Max A1 [place] [address] documented as of this encounter Visit Diagnoses Not on filedocumented in this encounter Additional Health Concerns Infection Onset Date Last Indicated Resolved Time COVID-19 03/05/2022 03/05/2022 03/15/2022 7:18 PM EDT documented as of this encounter Care Teams Paper Counter Relationship Specialty Start Date End Date Caitlyn Bowie MD 3400 [facility] 1 [place] [address] PCP - General Internal Medicine 05/06/21 Henry Kelly MD Pulmonary Department 175 [facility], [address] [place] [address] Physician Pulmonary Disease 09/06/17 06/22/20 documented as of this encounter
--- OUTSIDE RECORDS SUMMARY | 2024-09-11 11:37 | XMS_ITS | Encounter Summary ---
Author Organization [facility] and [facility] Address [address] [place] [address] Care Team Providers Care Hand Hide Stretcher Name Role Phone Caitlyn Bowie MD Primary Care Provider +1- [phone] Encounter Details Date Type Department Care Team (Late st Contact Info) Description 02/02/2018 Scanned Document [facility] Health Information Management [address] [place] [address] External, Provider Social History Tobacco Use Types [...] 09/30/2024 8:30 PM EDT Procedure visit [facility] [address] [place] [address] [address] [place] [address] 10/31/2024 1:00 PM EDT Telemedicine Cancer Center at [facility] 240 [facility] Building [address] [place], [place] [address] Ronald Mills MD 240 [facility] A1 [place] [address] documented as of this encounter [...] as of this encounter Care Teams Hand Hide Stretcher Relationship Specialty Start Date End Date Caitlyn Bowie MD 3400 [facility] 1 [place] [address] PCP - General Internal Medicine 05/06/21 Henry Kelly MD Pulmonary Department 175 [facility], [address] [place] [address] Physician Pulmonary Disease 09/06/17 06/22/20 documented as of this encounter
--- OUTSIDE RECORDS SUMMARY | 2024-09-11 11:37 | XMS_ITS | Encounter Summary ---
Author Organization [facility] and [facility] Address [address] [place] [address] Care Team Providers Care Hand Bookbinder Name Role Phone Caitlyn Bowie MD Primary Care Provider +1- [phone] Encounter Details Date Type Department Care Team (Late st Contact Info) Description 12/16/2016 Scanned Document [facility] Health Information Management [address] [place] [phone] External, Provider Social History Tobacco Use [...] Description 09/30/2024 8:30 PM EDT Procedure visit [facility] [address] [place] [address] [address] [place] [address] 10/31/2024 1:00 PM EDT Telemed[facility] 240 [facility] Building [address] [place], [place] [address] Ronald Mills MD 240 [facility] A1 [place] [address] documented as of this encounter Procedures Procedure [...] as of this encounter Care Teams Hand Bookbinder Relationship Specialty Start Date End Date Caitlyn Bowie MD 3400 [facility] 1 [place] [address] PCP - General Internal Medicine 05/06/21 Henry Kelly MD Pulmonary Department 175 [facility], [address] [place] [address] Physician Pulmonary Disease 09/06/17 06/22/20 documented as of this encounter
--- OUTSIDE RECORDS SUMMARY | 2024-09-11 11:37 | XMS_ITS | Encounter Summary ---
Author Organization [facility] and [facility] Address [address] [place] [address] Care Team Providers Care Distance Education Coordinator Name Role Phone Caitlyn Bowie MD Primary Care Provider +1- [phone] Encounter Details Date Type Department Care Team (Late st Contact Info) Description 07/27/2016 Scanned Document Thoracic Oncology Program at [address] [address] Suzy Kong MD [address] [place] [phone] Social History Tobacco Use Types Packs/Day [...] Description 09/30/2024 8:30 PM EDT Procedure visit [facility] [address] [place] [address] [address] [place] [address] 10/31/2024 1:00 PM EDT Telemedicine Cancer Center at [address] [place] [address] Ronald Mills MD [address] [place] [address], [place] [address] documented as of this encounter Visit Diagnoses Not on filedocumented in this encounter Additional Health Concerns Infection Onset Date Last Indicated Resolved Time COVID-19 03/05/2022 03/05/2022 03/15/2022 7:18 PM EDT documented as of this encounter Care Teams Distance Education Coordinator Relationship Specialty Start Date End Date Caitlyn Bowie MD 3400 [facility] 1 [place] [address] PCP - General Internal Medicine 05/06/21 Henry Kelly MD Pulmonary Department [address] [place] [address], [address] [place] [address] Physician Pulmonary Disease 09/06/17 06/22/20 documented as of this encounter
== END 2024-09-11 10:54 | disposition home or self-care (01) ==
PROVIDERS: PCP Internal Medicine; Visit Provider Hospitalist
DX: J41.0 Simple chronic bronchitis (principal); J96.12 Chronic respiratory failure with hypercapnia; R07.81 Pleurodynia; G47.31 Primary central sleep apnea; I27.20 Pulmonary hypertension, unspecified; R91.8 Other nonspecific abnormal finding of lung field; J96.11 Chronic respiratory failure with hypoxia; G47.33 Obstructive sleep apnea (adult) (pediatric); J70.1 Chronic and other pulmonary manifestations due to radiation; I50.32 Chronic diastolic (congestive) heart failure; C34.12 Malignant neoplasm of upper lobe, left bronchus or lung; J90 Pleural effusion, not elsewhere classified
CPT/HCPCS: 99215; G2211

== ENCOUNTER 2024-09-11 09:56 | Outpatient (REF) | payer MEDICARE, SELFPAY ==
[2024-09-11 11:39] LABS: MANUAL DIFF FLAG NO
[2024-09-11 11:39] LABS: Venous Blood Gas Refer to POC result
[2024-09-11 11:52] LABS: VBG pH 7.57 (7.32-7.43)
[2024-09-11 11:53] LABS: VBG Base Excess 14.3 mmol/L; VBG HCO3 37 mmol/L (22-26); VBG pCO2 40 mmHg; VBG pO2 50 mmHg
[2024-09-11 12:12] LABS: Basophils Absolute Auto 0.1 X10*3/uL (0.0-0.2); Basophils Percent Auto 0.4 % (0-2); Eosinophils Absolute Auto 0.1 X10*3/uL (0.0-0.4); Eosinophils Percent Auto 0.6 % (0-4); Hematocrit 36.8 % (37.0-47.0); Hemoglobin 12.2 g/dl (12.0-16.0); Imm Gran Abs Auto 0.16 X10*3/uL (0.00-0.03); Imm Gran Pct Auto 1.1 % (0.0-0.4); Lymphocytes Absolute Auto 0.8 X10*3/uL (1.2-4.9); Lymphocytes Percent Auto 5.6 % (20-40); Mean Corpuscular HGB Conc 33.2 g/dl (31.0-35.0); Mean Corpuscular Hemoglobin 33.5 pg (27.0-33.0); Mean Corpuscular Volume 101.1 fL (80.0-98.0); Mean Platelet Volume 11.3 fL (9.4-12.3); Monocytes Percent Auto 7.1 % (2-11); Neutrophils Absolute Auto 12.3 x10*3/uL (2.0-8.3); Neutrophils Percent Auto 85.2 % (45-73); Platelet Count 240 X10*3/uL (160-400); Red Blood Count 3.64 X10*6/uL (4.20-5.50); Red Cell Distribution Width 14.1 % (11.0-16.0); White Blood Count 14.4 X10*3/uL (4.8-10.8)
[2024-09-11 12:42] LABS: Anion Gap 14 (12-20); Blood Urea Nitrogen 23 mg/dL (9-16); Calcium 10.9 mg/dL (8.4-10.2); Carbon Dioxide 32 mmol/L (22-29); Chloride 97 mmol/L (96-108); Estimated Glomerular Filt Rate > 60; Glucose Random 65 mg/dL (60-115); Sodium 140 mmol/L (135-145)
[2024-09-11 12:46] LABS: B Type Natriuretic Peptide 393 pg/mL (<100)
[2024-09-11 12:51] LABS: Erythrocyte Sedimentation Rate 74 MM/HR (0-20)
--- OUTSIDE RECORDS SUMMARY | 2024-09-11 13:05 | XMS_ITS | Encounter Summary ---
Author Organization [facility] and [facility] Address [address] [place] [address] Care Team Providers Care Waist Pleater Name Role Phone Caitlyn Bowie MD Primary Care Provider +1- [phone] Encounter Details Date Type Department Care Team (Late st Contact Info) Description 05/14/2020 Documentation Hematology Program at [address] [address] Taya Nuno RN Social History Tobacco Use [...] EDT Procedure visit [facility] [address] [place] [address] [address] [place] [address] 10/31/2024 1:00 PM EDT Telemedicine Cancer Center at [address] [place] [address] Ronald Mills MD [address] [place] [address] documented as of this encounter Visit Diagnoses Not on filedocumented in this encounter Additional Health Concerns Infection Onset Date Last Indicated Resolved Time COVID-19 03/05/2022 03/05/2022 03/15/2022 7:18 PM EDT Assessment Noted Time PHQ-9 Depression Total Score: 2 11/07/19 19 2:06 PM EDT documented as of this encounter Care Teams Waist Pleater Relationship Specialty Start Date End Date Caitlyn Bowie MD 3400 [facility] 1 [place] [address] PCP - General Internal Medicine 05/06/21 Henry Kelly MD Pulmonary Department [address] [place] [address], [address] [place] [address] Physician Pulmonary Disease 09/06/17 06/22/20 documented as of this encounter
--- OUTSIDE RECORDS SUMMARY | 2024-09-11 13:05 | XMS_ITS | Encounter Summary ---
Author Organization [facility] Address [address] [place] [address] Care Team Providers Care Saw Cleaner Name Role Phone Caitlyn Bowie MD Primary Care Provider +1- [phone] Encounter Details Date Type Department Care Team (Late st Contact Info) Description 09/16/2020 Scanned Document [facility] Health Information Management [address] [place] [address] External, Provider Social History Tobacco Use Types [...] Description 09/30/2024 8:30 PM EDT Procedure visit [facility] [address] [place] [address] [address] [place] [address] 10/31/2024 1:00 PM EDT Telemedicine Cancer Center at [facility] 240 [facility] [address] [place] [address] Ronald Mills MD 240 [facility] [address]1 [place] [address] documented as of this encounter [...] documented as of this encounter Care Teams Saw Cleaner Relationship Specialty Start Date End Date Caitlyn Bowie MD [address] [address] PCP - General Internal Medicine 05/06/21 documented as of this encounter
--- OUTSIDE RECORDS SUMMARY | 2024-09-11 13:05 | XMS_ITS | Encounter Summary ---
Author Organization [facility] and [facility] Address [address] [place] [address] Care Team Providers Care Bicycle Subassembler Name Role Phone Caitlyn Bowie MD Primary Care Provider +1- [phone] Encounter Details Date Type Department Care Team (Late st Contact Info) Description 09/18/2020 Scanned Document [facility] Health Information Management [address] [place] [address] External, Provider Social History Tobacco Use Types [...] Description 09/30/2024 8:30 PM EDT Procedure visit [facility] [address] [place] [address] [address] [place] [address] 10/31/2024 1:00 PM EDT Telemedicine [facility] at [facility] [address] [facility] [address] [place] [address] Ronald Mills MD 240 [facility] [address]1 [place] [address] documented as of this encounter [...] documented as of this encounter Care Teams Bicycle Subassembler Relationship Specialty Start Date End Date Caitlyn Bowie MD [address] [address] PCP - General Internal Medicine 05/06/21 documented as of this encounter
--- OUTSIDE RECORDS SUMMARY | 2024-09-11 13:05 | XMS_ITS | Encounter Summary ---
Author Organization [facility] and [facility] Address [address] [place] [address] Care Team Providers Care Fire Extinguisher Inspector Name Role Phone Caitlyn Bowie MD Primary Care Provider +1- [phone] Encounter Details Date Type Department Care Team (Late st Contact Info) Description 09/16/2020 Scanned Document [facility] Health Information Management [address] [place] [address] External, Provider Social History Tobacco Use Types [...] Description 09/30/2024 8:30 PM EDT Procedure visit [facility] [address] [place] [address] [address] [place] [address] 10/31/2024 1:00 PM EDT Telemedicine [facility] at [facility] 240 [facility] [address] [place] [address] Ronald Mills MD 240 [facility] [address]1 [place] [address] documented as of this encounter [...] as of this encounter Care Teams Fire Extinguisher Inspector Relationship Specialty Start Date End Date Caitlyn Bowie MD [address] [address] PCP - General Internal Medicine 05/06/21 documented as of this encounter
--- OUTSIDE RECORDS SUMMARY | 2024-09-11 13:05 | XMS_ITS | Encounter Summary ---
Author Organization [facility] Address [address] [place] [address] Care Team Providers Care Reworker Name Role Phone Victorino Martin MD Primary Care Provider UnavailSharon Kimbrough Primary Care Provider Unava ilable Brennan Burnett MD Primary Care Provider Unavailab Hayden Montes MD Unavailable [phone] Pallavi Flood NP Unavailable [phone]- [phone] Caitlyn Bowie MD Primary Care Provider Unava ilable Reason for Visit * Reason Onset Date Comments refill request 06/25/2018 Call From Pharmacy 06/25/2018 Encounter Details Date Type Department Care Team Description 06/25/2018 Refill Pulmonology - [address] [place] [address] Henry Kelly MD refill request; [...] Does patient have an upcoming appointment? Yes [id number] (THE MEDICATION IS NOT ON THE MED LIST AND IS IDENTIFIED BELOW): {MED LIST:23466) Med name: Ventolin HFA Dosage: 90 mcg [...] bronchitis documented in this encounter Care Teams Reworker Relationship Specialty Start Date End Date Victorino Martin MD PCP - General Internal Medicine 12/21/17 08/01/18 Sharon Vides PCP - General Internal Medicine 08/02/18 05/26/20 Brennan Burnett MD PCP - General Internal Medicine 05/27/20 12/07/21 Caitlyn Bowie MD [address] [place] [address] PCP - General Internal Medicine 12/08/21 Hayden Shah MD [address] [place] [address] Specialist Cardiovascular Disease 09/01/20 Pallavi Flood NP [address] [place] [address] Cardiology 09/01/20 documented as of this encounter
--- OUTSIDE RECORDS SUMMARY | 2024-09-11 13:05 | XMS_ITS | Encounter Summary ---
Author Organization [facility] and [facility] Address [address] [place] [address] Care Team Providers Care Fig Washer Name Role Phone Caitlyn Bowie MD Primary Care Provider +1- [phone] Encounter Details Date Type Department Care Team (Late st Contact Info) Description 02/20/2017 Scanned Document [facility] Health Information Management [address] [place] [address] External, Provider Social History Tobacco Use Types [...] Description 09/30/2024 8:30 PM EDT Procedure visit [facility] [address] [place] [address] [address] [place] [address] 10/31/2024 1:00 PM EDT Telemedicine [facility] at [facility] 240 [facility] Building [address] [place], [place] [address] Ronald Mills MD 240 [facility] [address]1 [place] [address] documented as of this encounter Procedures Procedure [...] documented as of this encounter Care Teams Fig Washer Relationship Specialty Start Date End Date Caitlyn Bowie MD 3400 [facility] 1 [place] [address] PCP - General Internal Medicine 05/06/21 Henry Kelly MD Pulmonary Department 175 [facility], [address] [place] [address] Physician Pulmonary Disease 09/06/17 06/22/20 documented as of this encounter
--- OUTSIDE RECORDS SUMMARY | 2024-09-11 13:05 | XMS_ITS | Encounter Summary ---
Author Organization [facility] and [facility] Address [address] [place] [address] Care Team Providers Care Tank House Supervisor Name Role Phone Caitlyn Bowie MD Primary Care Provider +1- [phone] Encounter Details Date Type Department Care Team (Late st Contact Info) Description 09/15/2020 Scanned Document Cancer Center at [address] [address] External, Provider Social History Tobacco Use Types [...] Description 09/30/2024 8:30 PM EDT Procedure visit [facility] [address] [place] [address] [place] [address] 10/31/2024 1:00 PM EDT Telemedicine Cancer Center at [address] [place], [place] [address] Ronald Mills MD [address] [address] documented as of this encounter [...] documented as of this encounter Care Teams Tank House Supervisor Relationship Specialty Start Date End Date Caitlyn Bowie MD [address] [address] PCP - General Internal Medicine 05/06/21 documented as of this encounter
--- OUTSIDE RECORDS SUMMARY | 2024-09-11 13:05 | XMS_ITS | Encounter Summary ---
Author Organization [facility] and [facility] Address [address] [place] [address] Care Team Providers Care Pony Ride Attendant Name Role Phone Caitlyn Bowie MD Primary Care Provider +1- [phone] Encounter Details Date Type Department Care Team (Late st Contact Info) Description 09/17/2020 Scanned Document [facility] Health Information Management [address] [place] [address] External, Provider Social History Tobacco Use Types [...] Description 09/30/2024 8:30 PM EDT Procedure visit [facility] [address] [place] [address] [address] [place] [address] 10/31/2024 1:00 PM EDT Telemedicine [facility] at [facility] 240 [facility] [address] [place] [address] Ronald Mills MD 240 [facility] A1 [place] [address] documented as of this encounter [...] documented as of this encounter Care Teams Pony Ride Attendant Relationship Specialty Start Date End Date Caitlyn Bowie MD [address] [address] PCP - General Internal Medicine 05/06/21 documented as of this encounter
--- OUTSIDE RECORDS SUMMARY | 2024-09-11 13:05 | XMS_ITS | Encounter Summary ---
Author Organization [facility] Address [address] [place] [address] Care Team Providers Care Superior Court Judge Name Role Phone Victorino Martin MD Primary Care Provider Sharon Odonnell Primary Care Provider Brennan Castro MD Primary Care Provider Unavailab Hayden Montes MD Unavailable [phone] Pallavi Flood NP Unavailable [phone]- [phone] Caitlyn Bowie MD Primary Care Provider Johnathon shaver Encounter Details Date Type Department Care Team Description 06/21/2018 Orders Only Pulmonology - [address] [place] [address] Henry Kelly MD Social History [...] on filedocumented in this encounter Care Teams Superior Court Judge Relationship Specialty Start Date End Date Victorino Martin MD PCP - General Internal Medicine 12/21/17 08/01/18 Sharon Vides PCP - General Internal Medicine 08/02/18 05/26/20 Brennan Burnett MD PCP - General Internal Medicine 05/27/20 12/07/21 Caitlyn Bowie MD [address] [place] [address] PCP - General Internal Medicine 12/08/21 Hayden Shah MD [address] [place], [place] [address] Specialist Cardiovascular Disease 09/01/20 Pallavi Flood NP [address] [place] [address] Cardiology 09/01/20 documented as of this encounter
--- OUTSIDE RECORDS SUMMARY | 2024-09-11 13:05 | XMS_ITS | Encounter Summary ---
Author Organization [facility] Address [address] [place] [address] Care Team Providers Care Cheese Specialist Name Role Phone Victorino Martin MD Primary Care Provider UnavailSharon Kimbrough Primary Care Provider Unava ilable Brennan Burnett MD Primary Care Provider Unavailab Hayden Montes MD Unavailable [phone] Pallavi Flood NP Unavailable [phone]- [phone] Caitlyn Bowie MD Primary Care Provider Unava ilable Reason for Visit * Reason Onset Date Comments Orders Call 07/30/2018 ultrasound Encounter Details Date Type Department Care Team Description 07/30/2018 Telephone Pulmonology - [address] [place] [address] Henry Kelly MD Orders Call [...] have no order. Please fax order to [phone]. documented in this encounter Plan of Treatment Not on file documented as of this encounter Visit Diagnoses Not on filedocumented in this encounter Care Teams Cheese Specialist Relationship Specialty Start Date End Date Victorino Martin MD PCP - General Internal Medicine 12/21/17 08/01/18 Sharon Vides PCP - General Internal Medicine 08/02/18 05/26/20 Brennan Burnett MD PCP - General Internal Medicine 05/27/20 12/07/21 Caitlyn Bowie MD [address] [place] [address] PCP - General Internal Medicine 12/08/21 Hayden Shah MD [address] [place] [address] Specialist Cardiovascular Disease 09/01/20 Pallavi Flood NP [address] [place] [address] Cardiology 09/01/20 documented as of this encounter
--- OUTSIDE RECORDS SUMMARY | 2024-09-11 13:05 | XMS_ITS | Encounter Summary ---
Author Organization [facility] and [facility] Address [address] [place] [address] Care Team Providers Care Medical Sales Specialist Name Role Phone Caitlyn Bowie MD Primary Care Provider +1- [phone] Encounter Details Date Type Department Care Team (Late st Contact Info) Description 09/15/2020 Scanned Document [facility] Health Information Management [address] [place] [address] External, Provider Social History Tobacco Use Types [...] Description 09/30/2024 8:30 PM EDT Procedure visit [facility] [address] [place] [address] [address] [place] [address] 10/31/2024 1:00 PM EDT Telemedicine [facility] 240 [facility] [address] [place] [address] Ronald Mills MD 240 [facility] [address] [place] [address] documented as of this encounter [...] as of this encounter Care Teams Medical Sales Specialist Relationship Specialty Start Date End Date Caitlyn Bowie MD [address] [address] PCP - General Internal Medicine 05/06/21 documented as of this encounter
--- OUTSIDE RECORDS SUMMARY | 2024-09-11 13:05 | XMS_ITS | Encounter Summary ---
Author Organization [facility] Address [address] [place] [address] Care Team Providers Care Mba Intern Name Role Phone Victorino Martin MD Primary Care Provider UnavailSharon Kimbrough Primary Care Provider Unava ilable Brennan Burnett MD Primary Care Provider Unavailab Hayden Montes MD Unavailable [phone] Pallavi Flood NP Unavailable [phone]- [phone] Caitlyn Bowie MD Primary Care Provider Unava ilable Reason for Visit * Reason Onset Date Comments TEST RESULTS 06/14/2018 Call From Lab 06/14/2018 Encounter Details Date Type Department Care Team Description 06/14/2018 Telephone Pulmonology - [place] 175 [facility] [address] [place] [address] Andre Benites PA-C 299 [facility] [address] [place] [address] TEST RESULTS; Call From Lab [...] on filedocumented in this encounter Care Teams Mba Intern Relationship Specialty Start Date End Date Victorino Martin MD PCP - General Internal Medicine 12/21/17 08/01/18 Sharon Vides PCP - General Internal Medicine 08/02/18 05/26/20 Brennan Burnett MD PCP - General Internal Medicine 05/27/20 12/07/21 Caitlyn Bowie MD [address] [place] [address] PCP - General Internal Medicine 12/08/21 Hayden Shah MD [address] [place] [address] Specialist Cardiovascular Disease 09/01/20 Pallavi Flood NP [address] [place] [address] Cardiology 09/01/20 documented as of this encounter
--- OUTSIDE RECORDS SUMMARY | 2024-09-11 13:05 | XMS_ITS | Encounter Summary ---
Author Organization [facility] and [facility] Address [address] [place] [address] Care Team Providers Care Management Technician Name Role Phone Caitlyn Bowie MD Primary Care Provider +1- [phone] Encounter Details Date Type Department Care Team (Late st Contact Info) Description 02/20/2017 Scanned Document [facility] Health Information Management [address] [place] [address] External, Provider Social History Tobacco Use Types [...] Description 09/30/2024 8:30 PM EDT Procedure visit [facility] [address] [place] [address] [address] [place] [address] 10/31/2024 1:00 PM EDT Telemedicine Cancer Center at [facility] 240 [facility] Building [address] [place], [place] [address] Ronald Mills MD 240 [facility] A1 [place] [address] documented as of this encounter Procedures Procedure [...] as of this encounter Care Teams Management Technician Relationship Specialty Start Date End Date Caitlyn Bowie MD 3400 [facility] 1 [place] [address] PCP - General Internal Medicine 05/06/21 Henry Kelly MD Pulmonary Department 175 [facility], [address] [place] [address] Physician Pulmonary Disease 09/06/17 06/22/20 documented as of this encounter
--- OUTSIDE RECORDS SUMMARY | 2024-09-11 13:05 | XMS_ITS | Encounter Summary ---
Author Organization [facility] and [facility] Address [address] [place] [address] Care Team Providers Care Vinyl Hanger Name Role Phone Caitlyn Bowie MD Primary Care Provider +1- [phone] Encounter Details Date Type Department Care Team (Late st Contact Info) Description 02/02/2017 Scanned Document [facility] Health Information Management [address] [place] [address] External, Provider Social History Tobacco Use Types [...] 09/30/2024 8:30 PM EDT Procedure visit [facility] [address] [place] [address] [address] [place] [address] 10/31/2024 1:00 PM EDT Telemedicine [facility] at [facility] 240 [facility] Building [address] [place], [place] [address] Ronald Mills MD 240 [facility] [address] [place] [address] documented as of this encounter Visit Diagnoses Not on filedocumented in this encounter Additional Health Concerns Infection Onset Date Last Indicated Resolved Time COVID-19 03/05/2022 03/05/2022 03/15/2022 7:18 PM EDT documented as of this encounter Care Teams Vinyl Hanger Relationship Specialty Start Date End Date Caitlyn Bowie MD 3400 [facility] [address] 1 [place] [address] PCP - General Internal Medicine 05/06/21 Henry Kelly MD Pulmonary Department 175 [facility], [address] [place] [address] Physician Pulmonary Disease 09/06/17 06/22/20 documented as of this encounter
--- OUTSIDE RECORDS SUMMARY | 2024-09-11 13:05 | XMS_ITS | Encounter Summary ---
Author Organization [facility] and [facility] Address [address] [place] [address] Care Team Providers Care Visual Specialist Name Role Phone Caitlyn Bowie MD Primary Care Provider +1- [phone] Encounter Details Date Type Department Care Team (Late st Contact Info) Description 05/19/2020 Scanned Document Cancer Center at [address] [address] External, Provider Social History Tobacco Use Types [...] Description 09/30/2024 8:30 PM EDT Procedure visit [facility] [address] [place] [address] [address] [place] [address] 10/31/2024 1:00 PM EDT Telemedicine Cancer Center at [address] [place] [address] Ronald Mills MD [address] [address] documented as of this [...] documented as of this encounter Care Teams Visual Specialist Relationship Specialty Start Date End Date Caitlyn Bowie MD 3400 [facility] [address] [place] [address] PCP - General Internal Medicine 05/06/21 Henry Kelly MD Pulmonary Department 175 [facility], [address] [place] [address] Physician Pulmonary Disease 09/06/17 06/22/20 documented as of this encounter
--- OUTSIDE RECORDS SUMMARY | 2024-09-11 13:05 | XMS_ITS | Encounter Summary ---
Author Organization [facility] and [facility] Address [address] [place] [address] Care Team Providers Care Rug Clipper Name Role Phone Caitlyn Bowie MD Primary Care Provider +1- [phone] Encounter Details Date Type Department Care Team (Late st Contact Info) Description 09/15/2020 Scanned Document INTERFACE DEFAULT [address] [place] [address] System, Provider Not In Social History Tobacco [...] Description 09/30/2024 8:30 PM EDT Procedure visit [facility] [address] [place] [address] [address] [place] [address] 10/31/2024 1:00 PM EDT Telemedicine [facility] 240 [facility] [address] [place] [address] Ronald Mills MD 240 [facility] A1 [place] [address] documented as of this encounter [...] End Date Caitlyn Bowie MD [address] [address] PCP - General Internal Medicine 05/06/21 documented as of this encounter
--- OUTSIDE RECORDS SUMMARY | 2024-09-11 13:05 | XMS_ITS | Encounter Summary ---
Author Organization [facility] Address [address] [place] [address] Care Team Providers Care Muffler Installer Name Role Phone Caitlyn Bowie MD Primary Care Provider +1- [phone] Encounter Details Date Type Department Care Team (Late st Contact Info) Description 07/08/2020 Scanned Document [facility] Health Information Management [address] [place] [address] External, Provider Social History Tobacco Use [...] EDT Procedure visit [facility] [address] [place] [address] [address] [place] [address] 10/31/2024 1:00 PM EDT Telemedicine [facility] at [facility] 240 [facility] [address] [place] [address] Ronald Mills MD 240 [facility] [address]1 [place] [address] documented as of this encounter Procedures Procedure [...] documented as of this encounter Care Teams Muffler Installer Relationship Specialty Start Date End Date Caitlyn Bowie MD [address] [address] PCP - General Internal Medicine 05/06/21 documented as of this encounter
--- OUTSIDE RECORDS SUMMARY | 2024-09-11 13:05 | XMS_ITS | Encounter Summary ---
Author Organization [facility] Address [address] [place] [address] Care Team Providers Care Data Processing Operator Name Role Phone Victorino Martin MD Primary Care Provider UnavailSharon Kimbrough Primary Care Provider Unava ilable Brennan Burnett MD Primary Care Provider Unavailab Hayden Montes MD Unavailable [phone] Pallavi Flood NP Unavailable [phone]- [phone] Caitlyn Bowie MD Primary Care Provider Unava ilable Reason for Visit * Reason Onset Date Comments Call From Md Office 06/27/2018 Encounter Details Date Type Department Care Team Description 06/27/2018 Telephone Pulmonology - [address] [place] [address] Henry Kelly MD Call From [...] Szymanski calling to speak to Dr. Kelly [phone] documented in this encounter Plan of Treatment Not on file documented as of this encounter Visit Diagnoses Not on filedocumented in this encounter Care Teams Data Processing Operator Relationship Specialty Start Date End Date Victorino Martin MD PCP - General Internal Medicine 12/21/17 08/01/18 Sharon Vides PCP - General Internal Medicine 08/02/18 05/26/20 Brennan Burnett MD PCP - General Internal Medicine 05/27/20 12/07/21 Caitlyn Bowie MD [address] [place] [address] PCP - General Internal Medicine 12/08/21 Hayden Shah MD [address] [place], [place] [address] Specialist Cardiovascular Disease 09/01/20 Pallavi Flood NP [address] [place], [place] [address] Cardiology 09/01/20 documented as of this encounter
--- OUTSIDE RECORDS SUMMARY | 2024-09-11 13:06 | XMS_ITS | Encounter Summary ---
Author Organization [facility] and [facility] Address [address] [place] [address] Care Team Providers Care Gelatin Powder Mixer Name Role Phone Caitlyn Bowie MD Primary Care Provider +1- [phone] Encounter Details Date Type Department Care Team (Late st Contact Info) Description 06/27/2019 Scanned Document Onco-Oncology Program at [address] [place] [address] Norma Renee MD [address] [place] [address] 2 [place] [address] Social History Tobacco Use Types Packs/Day Years [...] Description 09/30/2024 8:30 PM EDT Procedure visit [facility] [address] [place] [address] 10/31/2024 1:00 PM EDT Telemedicine Cancer Center at [address] [place], [place] [address] Ronald Mills MD 240 [facility] [address] [place] [address] documented as of this encounter Visit Diagnoses Not on filedocumented in this encounter Additional Health Concerns Infection Onset Date Last Indicated Resolved Time COVID-19 03/05/2022 03/05/2022 03/15/2022 7:18 PM EDT Assessment Noted Time PHQ-9 Depression Total Score: 2 11/07/19 19 2:06 PM EDT documented as of this encounter Care Teams Gelatin Powder Mixer Relationship Specialty Start Date End Date Caitlyn Bowie MD 3400 [facility] 1 [place] [address] PCP - General Internal Medicine 05/06/21 Henry Kelly MD Pulmonary Department [address] [place] [address], [address] [place] [address] Physician Pulmonary Disease 09/06/17 06/22/20 documented as of this encounter
--- OUTSIDE RECORDS SUMMARY | 2024-09-11 13:06 | XMS_ITS | Encounter Summary ---
Author Organization [facility] and [facility] Address [address] [place] [address] Care Team Providers Care Supervisor Liquid Yeast Name Role Phone Caitlyn Bowie MD Primary Care Provider +1- [phone] Encounter Details Date Type Department Care Team (Late st Contact Info) Description 12/16/2016 Scanned Document [facility] Health Information Management [address] [place] [address] External, Provider Social History Tobacco Use Types [...] Description 09/30/2024 8:30 PM EDT Procedure visit [facility] [address] [place] [address] [address] [place] [address] 10/31/2024 1:00 PM EDT Telemedicine Cancer Center at [facility] 240 [facility] Building [address] [place], [place] [address] Ronald Mills MD 240 [facility] A1 [place] [phone] documented as of this encounter Procedures Procedure [...] as of this encounter Care Teams Supervisor Liquid Yeast Relationship Specialty Start Date End Date Caitlyn Bowie MD 3400 [facility] 1 [place] [address] PCP - General Internal Medicine 05/06/21 Henry Kelly MD Pulmonary Department 175 [facility], [address] [place] [address] Physician Pulmonary Disease 09/06/17 06/22/20 documented as of this encounter
--- OUTSIDE RECORDS SUMMARY | 2024-09-11 13:06 | XMS_ITS | Encounter Summary ---
Author Organization [facility] and [facility] Address [address] [place] [address] Care Team Providers Care Surgical Clinical Reviewer Name Role Phone Caitlyn Bowie MD Primary Care Provider +1- [phone] Encounter Details Date Type Department Care Team (Late st Contact Info) Description 01/28/2013 Scanned Document Thoracic Oncology Program at [address] [address] Solo Henry MD [address] [place] [phone] Social History Tobacco Use Types Packs/Day [...] Description 09/30/2024 8:30 PM EDT Procedure visit [facility] [address] [place] [address] [place] [address] 10/31/2024 1:00 PM EDT Telemedicine Cancer Center at [address] [place] [address] Ronald Mills MD [address] [place] [address] [phone] documented as of this encounter Visit Diagnoses Not on filedocumented in this encounter Additional Health Concerns Infection Onset Date Last Indicated Resolved Time COVID-19 03/05/2022 03/05/2022 03/15/2022 7:18 PM EDT documented as of this encounter Care Teams Surgical Clinical Reviewer Relationship Specialty Start Date End Date Caitlyn Bowie MD 3400 [facility] 1 [place] [address] PCP - General Internal Medicine 05/06/21 Henry Kelly MD Pulmonary Department 175 [facility], [address] [place] [address] Physician Pulmonary Disease 09/06/17 06/22/20 documented as of this encounter
--- OUTSIDE RECORDS SUMMARY | 2024-09-11 13:06 | XMS_ITS | Encounter Summary ---
Author Organization [facility] and [facility] Address [address] [place] [address] Care Team Providers Care Critical Care Nurse Practitioner Name Role Phone Caitlyn Bowie MD Primary Care Provider +1- [phone] Encounter Details Date Type Department Care Team (Late st Contact Info) Description 12/16/2016 Scanned Document [facility] Health Information Management [address] [place] [address] External, Provider Social History Tobacco Use Types [...] Description 09/30/2024 8:30 PM EDT Procedure visit [facility] [address] [place] [address] [address] [place] [address] 10/31/2024 1:00 PM EDT Telemedicine Cancer Center at [facility] 240 [facility] Building [address] [place], [place] [address] Ronald Mills MD 240 [facility] A1 [place] [address] documented as of this encounter Procedures Procedure [...] documented as of this encounter Care Teams Critical Care Nurse Practitioner Relationship Specialty Start Date End Date Caitlyn Bowie MD 3400 [facility] 1 [place] [address] PCP - General Internal Medicine 05/06/21 Henry Kelly MD Pulmonary Department 175 [facility], [address] [place] [address] Physician Pulmonary Disease 09/06/17 06/22/20 documented as of this encounter
--- OUTSIDE RECORDS SUMMARY | 2024-09-11 13:06 | XMS_ITS | Encounter Summary ---
Author Organization [facility] and [facility] Address [address] [place] [address] Care Team Providers Care Press Tender Star Signal Name Role Phone Caitlyn Bowie MD Primary Care Provider +1- [phone] Encounter Details Date Type Department Care Team (Late st Contact Info) Description 12/16/2016 Scanned Document [facility] Health Information Management [address] [place] [address] External, Provider Social History Tobacco Use Types [...] Description 09/30/2024 8:30 PM EDT Procedure visit [facility] [address] [place] [address] [address] [place] [address] 10/31/2024 1:00 PM EDT Telemedicine [facility] at [facility] 240 [facility] Building [address] [place], [place] [address] Ronald Mills MD 240 [facility] A1 [place] [phone] documented as of this encounter Visit Diagnoses Not on filedocumented in this encounter Additional Health Concerns Infection Onset Date Last Indicated Resolved Time COVID-19 03/05/2022 03/05/2022 03/15/2022 7:18 PM EDT documented as of this encounter Care Teams Press Tender Star Signal Relationship Specialty Start Date End Date Caitlyn Bowie MD 3400 [facility] Max 1 [place] [address] PCP - General Internal Medicine 05/06/21 Henry Kelly MD Pulmonary Department 175 [facility], [address] [place] [address] Physician Pulmonary Disease 09/06/17 06/22/20 documented as of this encounter
--- OUTSIDE RECORDS SUMMARY | 2024-09-11 13:06 | XMS_ITS | Encounter Summary ---
Author Organization [facility] and [facility] Address [address] [place] [address] Care Team Providers Care Transportation Superintendent Name Role Phone Caitlyn Bowie MD Primary Care Provider +1- [phone] Encounter Details Date Type Department Care Team (Late st Contact Info) Description 01/28/2013 Scanned Document Thoracic Oncology Program at [address] [address] Solo Henry MD [address] [place] [phone] Social History Tobacco Use Types Packs/Day [...] Description 09/30/2024 8:30 PM EDT Procedure visit [facility] [address] [place] [address] [place] [address] 10/31/2024 1:00 PM EDT Telemedicine Cancer Center at [address] [address] Ronald Mills MD [address] [place] [address] [phone] documented as of this encounter Visit Diagnoses Not on filedocumented in this encounter Additional Health Concerns Infection Onset Date Last Indicated Resolved Time COVID-19 03/05/2022 03/05/2022 03/15/2022 7:18 PM EDT documented as of this encounter Care Teams Transportation Superintendent Relationship Specialty Start Date End Date Caitlyn Bowie MD 3400 [facility] 1 [place] [address] PCP - General Internal Medicine 05/06/21 Henry Kelly MD Pulmonary Department 175 [facility], [address] [place] [address] Physician Pulmonary Disease 09/06/17 06/22/20 documented as of this encounter
--- OUTSIDE RECORDS SUMMARY | 2024-09-11 13:06 | XMS_ITS | Encounter Summary ---
Author Organization [facility] and [facility] Address [address] [place] [address] Care Team Providers Care Makeup Artistry Instructor Name Role Phone Caitlyn Bowie MD Primary Care Provider +1- [phone] Encounter Details Date Type Department Care Team (Latest Contact Info) Description 04/15/2013 Transcribed Orders [facility] [address] [place] [address] Tian Atwood MD 280 [facility] 102 [place] [address] Unspecified hypothyroidism (Primary Dx) Social [...] Description 09/30/2024 8:30 PM EDT Procedure visit [facility] [address] [place] [address] [address] [place] [address] 10/31/2024 1:00 PM EDT Telemedicine Cancer Center at [facility] 240 [facility] Building [address] [place], [place] [address] Ronald Mills MD 240 [facility] Max A1 [place] [address] documented as of this encounter Results * Copper, serum total (YH) (04/15/2013 4:31 PM EDT) Copper, Serum Total SEE BELOW [facility] Comment: Test ?Result ? Flag ??Unit ?RefValue Copper, S ? 1.35 ? mcg/mL ??0.75-1.45 04/15/2013 4:31 PM EDT us Tian Atwood MD LAB BLOOD ORDERABLES Final R esult [facility] [address] [place] [address] documented in this encounter Visit Diagnoses Diagnosis Unspecified hypothyroidism- Primary documented in this encounter Additional Health Concerns Infection Onset Date Last Indicated Resolved Time COVID-19 03/05/2022 03/05/2022 03/15/2022 7:18 PM EDT documented as of this encounter Care Teams Makeup Artistry Instructor Relationship Specialty Start Date End Date Caitlyn Bowie MD 9566 [facility] 1 [place] [address] PCP - General Internal Medicine 05/06/21 Henry Kelly MD Pulmonary Department 175 [facility], [address] [place], [place] [address] Physician Pulmonary Disease 09/06/17 06/22/20 documented as of this encounter
--- OUTSIDE RECORDS SUMMARY | 2024-09-11 13:06 | XMS_ITS | Encounter Summary ---
Author Organization [facility] and [facility] Address [address] [place] [address] Care Team Providers Care Stagecraft Professor Name Role Phone Caitlyn Bowie MD Primary Care Provider +1- [phone] Encounter Details Date Type Department Care Team (Late st Contact Info) Description 07/01/2019 Scanned Document Onco-Oncology Program at [address] [place] [address] Norma Renee MD [address] [place] [address] 2 [place] [phone] Social History Tobacco Use Types Packs/Day Years [...] Description 09/30/2024 8:30 PM EDT Procedure visit [facility] [address] [place] [address] 10/31/2024 1:00 PM EDT Telemedicine Cancer Center at [address] [place], [place] [address] Ronald Mills MD 240 [facility] Max [address]1 [place] [address] documented as of this encounter Visit Diagnoses Not on filedocumented in this encounter Additional Health Concerns Infection Onset Date Last Indicated Resolved Time COVID-19 03/05/2022 03/05/2022 03/15/2022 7:18 PM EDT Assessment Noted Time PHQ-9 Depression Total Score: 2 11/07/19 19 2:06 PM EDT documented as of this encounter Care Teams Stagecraft Professor Relationship Specialty Start Date End Date Caitlyn Bowie MD 3400 [facility] 1 [place] [address] PCP - General Internal Medicine 05/06/21 Henry Kelly MD Pulmonary Department [address] [place] [address], [address] [place] [address] Physician Pulmonary Disease 09/06/17 06/22/20 documented as of this encounter
--- OUTSIDE RECORDS SUMMARY | 2024-09-11 13:06 | XMS_ITS | Encounter Summary ---
Author Organization [facility] and [facility] Address [address] [place] [address] Care Team Providers Care Farm Crew Leader Name Role Phone Caitlyn Bowie MD Primary Care Provider +1- [phone] Encounter Details Date Type Department Care Team (Late st Contact Info) Description 04/27/2017 Scanned Document [facility] Health Information Management [address] [place] [address] External, Provider Social History Tobacco Use Types [...] Description 09/30/2024 8:30 PM EDT Procedure visit [facility] [address] [place] [address] [address] [place] [address] 10/31/2024 1:00 PM EDT Telemedicine Cancer Center at [facility] 240 [facility] Building [address] [place], [place] [address] Ronald Mills MD 240 [facility] A1 [place] [address] documented as of this encounter Visit Diagnoses Not on filedocumented in this encounter Additional Health Concerns Infection Onset Date Last Indicated Resolved Time COVID-19 03/05/2022 03/05/2022 03/15/2022 7:18 PM EDT documented as of this encounter Care Teams Farm Crew Leader Relationship Specialty Start Date End Date Caitlyn Bowie MD 3400 [facility] Max 1 [place] [address] PCP - General Internal Medicine 05/06/21 Henry Kelly MD Pulmonary Department 175 [facility], [address] [place] [address] Physician Pulmonary Disease 09/06/17 06/22/20 documented as of this encounter
--- OUTSIDE RECORDS SUMMARY | 2024-09-11 13:06 | XMS_ITS | Encounter Summary ---
Author Organization [facility] Address [address] [place] [address] Care Team Providers Care Wirer Name Role Phone Victorino Martin MD Primary Care Provider Sharon Odonnell Primary Care Provider Brennan Castro MD Primary Care Provider UnavailHayden Fernandez MD Unavailable [phone] Pallavi Flood NP Unavailable [phone]- [phone] Caitlyn Bowie MD Primary Care Provider Johnathon shaver Encounter Details Date Type Department Care Team Description 07/23/2018 [facility] Internal Medicine [address], [address] [place] [address] Henry Kelyl MD Social History Tobacco Use Types Packs/Day [...] on filedocumented in this encounter Care Teams Wirer Relationship Specialty Start Date End Date Victorino Martin MD PCP - General Internal Medicine 12/21/17 08/01/18 Sharon Vides PCP - General Internal Medicine 08/02/18 05/26/20 Brennan Burnett MD PCP - General Internal Medicine 05/27/20 12/07/21 Caitlyn Bowie MD [address] [place] [address] PCP - General Internal Medicine 12/08/21 Hayden Shah MD [address] [place] [address] Specialist Cardiovascular Disease 09/01/20 Pallavi Flood NP [address] [place] [address] Cardiology 09/01/20 documented as of this encounter
--- OUTSIDE RECORDS SUMMARY | 2024-09-11 13:06 | XMS_ITS | Encounter Summary ---
Author Organization [facility] Address [address] [place] [address] Care Team Providers Care Chief Engineer Name Role Phone Caitlyn Bowie MD Primary Care Provider +1- [phone] Encounter Details Date Type Department Care Team (Late st Contact Info) Description 11/26/2019 Scanned Document Cancer Center at [address] [address] External, Provider Social History Tobacco Use Types [...] Description 09/30/2024 8:30 PM EDT Procedure visit [facility] [address] [place] [address] [address] [place] [address] 10/31/2024 1:00 PM EDT Telemedicine Cancer Center at [address] [place] [address] Ronald Mills MD [address] [address] documented as of this encounter [...] as of this encounter Care Teams Chief Engineer Relationship Specialty Start Date End Date Caitlyn Bowie MD 3400 [facility] Max 1 [place] [address] PCP - General Internal Medicine 05/06/21 Henry Kelly MD Pulmonary Department [address] [place] [address], [address] [place] [address] Physician Pulmonary Disease 09/06/17 06/22/20 documented as of this encounter
--- OUTSIDE RECORDS SUMMARY | 2024-09-11 13:06 | XMS_ITS | Encounter Summary ---
Author Organization [facility] and [facility] Address [address] [place] [address] Care Team Providers Care Locate Technician Name Role Phone Caitlyn Bowie MD Primary Care Provider +1- [phone] Encounter Details Date Type Department Care Team (Late st Contact Info) Description 09/09/2020 Scanned Document [facility] Health Information Management [address] [place] [address] External, Provider Social History Tobacco Use Types [...] Description 09/30/2024 8:30 PM EDT Procedure visit [facility] [address] [place] [address] [address] [place] [address] 10/31/2024 1:00 PM EDT Telemedicine Cancer Center at [facility] 240 [facility] [address] [place] [address] Ronald Mills MD 240 [facility] A1 [place] [address] documented as of this encounter [...] documented as of this encounter Care Teams Locate Technician Relationship Specialty Start Date End Date Caitlyn Bowie MD [address] [address] PCP - General Internal Medicine 05/06/21 documented as of this encounter
--- OUTSIDE RECORDS SUMMARY | 2024-09-11 13:06 | XMS_ITS | Encounter Summary ---
Author Organization [facility] and [facility] Address [address] [place] [address] Care Team Providers Care Software Build Engineer Name Role Phone Caitlyn Bowie MD Primary Care Provider +1- [phone] Encounter Details Date Type Department Care Team (Late st Contact Info) Description 08/29/2019 Scanned Document Cancer Center at [address] [address] External, Provider Social History Tobacco Use Types [...] Description 09/30/2024 8:30 PM EDT Procedure visit [facility] [address] [place] [address] [address] [place] [address] 10/31/2024 1:00 PM EDT Telemedicine Cancer Center at [address] [place] [address] Ronald Mills MD [address] [address] documented as of this encounter [...] as of this encounter Care Teams Software Build Engineer Relationship Specialty Start Date End Date Caitlyn Bowie MD 3400 [facility] Max 1 [place] [address] PCP - General Internal Medicine 05/06/21 Henry Kelly MD Pulmonary Department [address] [place] [address], [address] [place] [address] Physician Pulmonary Disease 09/06/17 06/22/20 documented as of this encounter
--- OUTSIDE RECORDS SUMMARY | 2024-09-11 13:06 | XMS_ITS | Encounter Summary ---
Author Organization [facility] and [facility] Address [address] [place] [address] Care Team Providers Care Dog And Cat Food Cook Name Role Phone Caitlyn Boiwe MD Primary Care Provider +1- [phone] Encounter Details Date Type Department Care Team (Late st Contact Info) Description 12/03/2019 Scanned Document [facility] Health Information Management [address] [place] [address] External, Provider Social History Tobacco Use Types [...] Description 09/30/2024 8:30 PM EDT Procedure visit [facility] [address] [place] [address] [address] [place] [address] 10/31/2024 1:00 PM EDT Telemedicine [facility] at [facility] 240 [facility] [address] [place] [address] Ronald Mills MD 240 [facility] A1 [place] [address] documented as of this encounter Visit Diagnoses Not on filedocumented in this encounter Additional Health Concerns Infection Onset Date Last Indicated Resolved Time COVID-19 03/05/2022 03/05/2022 03/15/2022 7:18 PM EDT Assessment Noted Time PHQ-9 Depression Total Score: 2 11/07/19 19 2:06 PM EDT documented as of this encounter Care Teams Dog And Cat Food Cook Relationship Specialty Start Date End Date Caitlyn Bowie MD [address] [facility] 1 [place] [address] PCP - General Internal Medicine 05/06/21 Henry Kelly MD Pulmonary Department [address] [place] [address], [address] [place] [address] Physician Pulmonary Disease 09/06/17 06/22/20 documented as of this encounter
--- OUTSIDE RECORDS SUMMARY | 2024-09-11 13:06 | XMS_ITS | Encounter Summary ---
Author Organization [facility] and [facility] Address [address] [place] [address] Care Team Providers Care Gate Mortiser Operator Name Role Phone Caitlyn Bowie MD Primary Care Provider +1- [phone] Encounter Details Date Type Department Care Team (Late st Contact Info) Description 01/22/2020 Scanned Document [facility] [address] [place] [address] Kerwin Menjivar MD [address] [place] [phone] Social History Tobacco Use Types Packs/Day [...] Description 09/30/2024 8:30 PM EDT Procedure visit [facility] [address] [place] [address] [address] [place] [address] 10/31/2024 1:00 PM EDT Telemedicine Cancer Center at [address] [place], [place] [address] Ronald Mills MD 240 [facility] Max [address]1 [place] [address] documented as of this encounter Visit Diagnoses Not on filedocumented in this encounter Additional Health Concerns Infection Onset Date Last Indicated Resolved Time COVID-19 03/05/2022 03/05/2022 03/15/2022 7:18 PM EDT Assessment Noted Time PHQ-9 Depression Total Score: 2 11/07/19 19 2:06 PM EDT documented as of this encounter Care Teams Gate Mortiser Operator Relationship Specialty Start Date End Date Caitlyn Bowie MD [address] [address] PCP - General Internal Medicine 05/06/21 Henry Kelly MD Pulmonary Department 175 [facility], [address] [place] [address] Physician Pulmonary Disease 09/06/17 06/22/20 documented as of this encounter
--- OUTSIDE RECORDS SUMMARY | 2024-09-11 13:06 | XMS_ITS | Encounter Summary ---
Author Organization [facility] Address [address] [place] [address] Care Team Providers Care Nurse Navigator Name Role Phone Victorino Martin MD Primary Care Provider Sharon Odonnell Primary Care Provider Brennan Castro MD Primary Care Provider Unavailab Hayden Montes MD Unavailable [phone] Pallavi Flood NP Unavailable +[phone]- [phone] Caitlyn Bowie MD Primary Care Provider Johnathon shaver Encounter Details Date Type Department Care Team Description 07/12/2018 Refill Pulmonology [address] [place] [address] Henry Kelly MD Social History [...] on filedocumented in this encounter Care Teams Nurse Navigator Relationship Specialty Start Date End Date Victorino Martin MD PCP - General Internal Medicine 12/21/17 08/01/18 Sharon Vides PCP - General Internal Medicine 08/02/18 05/26/20 Brennan Burnett MD PCP - General Internal Medicine 05/27/20 12/07/21 Caitlyn Bowie MD [address] [place] [address] PCP - General Internal Medicine 12/08/21 Hayden Shah MD [address] [place], [place] [address] Specialist Cardiovascular Disease 09/01/20 Pallavi Flood NP [address] [place] [address] Cardiology 09/01/20 documented as of this encounter
--- OUTSIDE RECORDS SUMMARY | 2024-09-11 13:06 | XMS_ITS | Encounter Summary ---
Author Organization [facility] Address [address] [place] [address] Care Team Providers Care Keeler Polygraph Operator Name Role Phone Caitlyn Bowie MD Primary Care Provider +1- [phone] Encounter Details Date Type Department Care Team (Late st Contact Info) Description 09/07/2020 Scanned Document Cardiovascular Medicine at [address] [address] Norma Renee MD [address] [place] [phone] Social History Tobacco Use Types Packs/Day Years [...] EDT Procedure visit [facility] [address] [place] [address] [address] [place] [address] 10/31/2024 1:00 PM EDT Telemedicine Cancer Center at [address] [place], [place] [address] Ronald Mills MD 240 [facility] Max [address] [place] [address] documented as of this encounter Visit Diagnoses Not on filedocumented in this encounter Additional Health Concerns Infection Onset Date Last Indicated Resolved Time COVID-19 03/05/2022 03/05/2022 03/15/2022 7:18 PM EDT Assessment Noted Time PHQ-9 Depression Total Score: 2 11/07/19 19 2:06 PM EDT documented as of this encounter Care Teams Keeler Polygraph Operator Relationship Specialty Start Date End Date Caitlyn Bowie MD [address] [address] PCP - General Internal Medicine 05/06/21 documented as of this encounter
--- OUTSIDE RECORDS SUMMARY | 2024-09-11 13:06 | XMS_ITS | Encounter Summary ---
Author Organization [facility] Address [address] [place] [address] Care Team Providers Care Underwriting Operations Manager Name Role Phone Caitlyn Bowie MD Primary Care Provider +1- [phone] Encounter Details Date Type Department Care Team (Late st Contact Info) Description 12/16/2016 Scanned Document [facility] Health Information Management [address] [place] [address] External, Provider Social History Tobacco Use Types [...] Description 09/30/2024 8:30 PM EDT Procedure visit [facility] [address] [place] [address] [address] [place] [address] 10/31/2024 1:00 PM EDT Telemedicine Cancer Center at [facility] 240 [facility] Building [address] [place], [place] [address] Ronald Mills MD 240 [facility] A1 [place] [phone] documented as of this encounter Procedures Procedure [...] documented as of this encounter Care Teams Underwriting Operations Manager Relationship Specialty Start Date End Date Caitlyn Bowie MD 3400 [facility] 1 [place] [address] PCP - General Internal Medicine 05/06/21 Henry Kelly MD Pulmonary Department 175 [facility], [address] [place] [address] Physician Pulmonary Disease 09/06/17 06/22/20 documented as of this encounter
--- OUTSIDE RECORDS SUMMARY | 2024-09-11 13:06 | XMS_ITS | Encounter Summary ---
Author Organization [facility] and [facility] Address [address] [place] [address] Care Team Providers Care Vp Strategy Name Role Phone Caitlyn Bowie MD Primary Care Provider +1- [phone] Encounter Details Date Type Department Care Team (Late st Contact Info) Description 06/27/2019 Scanned Document Onco-Oncology Program at [address] [place] [address] Norma Renee MD [address] [place] [address] 2 [place] [phone] Social History Tobacco Use Types Packs/Day Years [...] Description 09/30/2024 8:30 PM EDT Procedure visit [facility] [address] [place] [address] 10/31/2024 1:00 PM EDT Telemedicine Cancer Center at [address] [place], [place] [address] Ronald Mills MD 240 [facility] Max [address]1 [place] [address] documented as of this encounter Visit Diagnoses Not on filedocumented in this encounter Additional Health Concerns Infection Onset Date Last Indicated Resolved Time COVID-19 03/05/2022 03/05/2022 03/15/2022 7:18 PM EDT Assessment Noted Time PHQ-9 Depression Total Score: 2 11/07/19 19 2:06 PM EDT documented as of this encounter Care Teams Vp Strategy Relationship Specialty Start Date End Date Caitlyn Bowie MD 3400 [facility] 1 [place] [address] PCP - General Internal Medicine 05/06/21 Herny Kelly MD Pulmonary Department [address] [place] [address], [address] [place] [address] Physician Pulmonary Disease 09/06/17 06/22/20 documented as of this encounter
--- OUTSIDE RECORDS SUMMARY | 2024-09-11 13:06 | XMS_ITS | Encounter Summary ---
Author Organization [facility] Address [address] [place] [address] Care Team Providers Care Pbx Supervisor Name Role Phone Victorino [place] MD Primary Care Provider Sharon Odonnell Primary Care Provider Brennan Castro MD Primary Care Provider Unavailab Hayden Montes MD Unavailable [phone] Pallavi Flood NP Unavailable [phone]- [phone] Caitlyn Bowie MD Primary Care Provider Johnathon shaver Encounter Details Date Type Department Care Team Description 07/04/2018 Refill Pulmonology - [address] [place] [address] Henry Kelly MD Social History [...] Preferred pharmacy: [facility] Comment: documented in this encounter Plan of Treatment Not on file documented as of this encounter Visit Diagnoses Not on filedocumented in this encounter Care Teams Pbx Supervisor Relationship Specialty Start Date End Date Victorino [place] MD PCP - General Internal Medicine 12/21/17 08/01/18 Sharon Vides PCP - General Internal Medicine 08/02/18 05/26/20 Brennan [place] MD PCP - General Internal Medicine 05/27/20 12/07/21 Caitlyn Bowie MD [address] [place] [address] PCP - General Internal Medicine 12/08/21 Hayden Shah MD [address] [place] [address] Specialist Cardiovascular Disease 09/01/20 Pallavi Flood NP [address] [place] [address] Cardiology 09/01/20 documented as of this encounter
--- OUTSIDE RECORDS SUMMARY | 2024-09-11 13:06 | XMS_ITS | Encounter Summary ---
Author Organization [facility] Address [address] [place] [address] Care Team Providers Care Chief Information Officer Name Role Phone Caitlyn Bowie MD Primary Care Provider +1- [phone] Encounter Details Date Type Department Care Team (Late st Contact Info) Description 08/16/2012 Abstract [facility] Health Information Management [address] [place] [address] [place], Primary Care [address] [place] [address] Social History Tobacco Use Types Packs/Day Years [...] Description 09/30/2024 8:30 PM EDT Procedure visit [facility] [address] [place] [phone] 10/31/2024 1:00 PM EDT Telemedicine Cancer Center at [facility] [place] 240 [facility] [address] [place] [address] Ronald Mills MD 240 [facility] [address] [place] [address] documented as of this encounter Visit Diagnoses Not on filedocumented in this encounter Additional Health Concerns Infection Onset Date Last Indicated Resolved Time COVID-19 03/05/2022 03/05/2022 03/15/2022 7:18 PM EDT documented as of this encounter Care Teams Chief Information Officer Relationship Specialty Start Date End Date Caitlyn Bowie MD 3400 [facility] 1 [place] [address] PCP - General Internal Medicine 05/06/21 Henry Kelly MD Pulmonary Department 175 [facility], [address] [place] [address] Physician Pulmonary Disease 09/06/17 06/22/20 documented as of this encounter
--- OUTSIDE RECORDS SUMMARY | 2024-09-11 13:06 | XMS_ITS | Encounter Summary ---
Author Organization [facility] and [facility] Address [address] [place] [address] Care Team Providers Care Superintendent Construction Name Role Phone Caitlyn Bowie MD Primary Care Provider [phone]- [phone] Encounter Details Date Type Department Care Team (Late st Contact Info) Description 12/19/2016 Scanned Document [facility] Health Information Management [address] [place] [address] External, Provider Social History Tobacco Use Types [...] Description 09/30/2024 8:30 PM EDT Procedure visit [facility] [address] [place] [address] [address] [place] [address] 10/31/2024 1:00 PM EDT Telemedicine Cancer Center at [facility] 240 [facility] Building [address] [place], [place] [address] Ronald Mills MD 240 [facility] A1 [place] [address] documented as of this encounter Procedures Procedure [...] Date End Date Caitlyn Bowie MD 3400 [facility] Max 1 [place] [address] PCP - General Internal Medicine 05/06/21 Henry Kelly MD Pulmonary Department 175 [facility], [address] [place] [address] Physician Pulmonary Disease 09/06/17 06/22/20 documented as of this encounter
--- OUTSIDE RECORDS SUMMARY | 2024-09-11 13:06 | XMS_ITS | Encounter Summary ---
Author Organization [facility] and [facility] Address [address] [place] [address] Care Team Providers Care Boiler House Mechanic Name Role Phone Caitlyn Bowie MD Primary Care Provider +1- [phone] Encounter Details Date Type Department Care Team (Late st Contact Info) Description 06/27/2019 Scanned Document Onco-Oncology Program at [address] [place] [address] Norma Renee MD [address] [place] [address] 2 [place] [phone] Social History Tobacco Use Types Packs/Day Years [...] Description 09/30/2024 8:30 PM EDT Procedure visit [facility] [address] [place] [address] 10/31/2024 1:00 PM EDT Telemedicine Cancer Center at [address] [place], [place] [address] Ronald Mills MD 240 [facility] Max [address]1 [place] [address] documented as of this encounter Visit Diagnoses Not on filedocumented in this encounter Additional Health Concerns Infection Onset Date Last Indicated Resolved Time COVID-19 03/05/2022 03/05/2022 03/15/2022 7:18 PM EDT Assessment Noted Time PHQ-9 Depression Total Score: 2 11/07/19 19 2:06 PM EDT documented as of this encounter Care Teams Boiler House Mechanic Relationship Specialty Start Date End Date Caitlyn Bowie MD 3400 [facility] 1 [place] [address] PCP - General Internal Medicine 05/06/21 Hnery Kelly MD Pulmonary Department [address] [place] [address], [address] [place] [address] Physician Pulmonary Disease 09/06/17 06/22/20 documented as of this encounter
--- OUTSIDE RECORDS SUMMARY | 2024-09-11 13:06 | XMS_ITS | Encounter Summary ---
Author Organization [facility] and [facility] Address [address] [place] [address] Care Team Providers Care Analog Device Designer Name Role Phone Caitlyn Bowie MD Primary Care Provider +1- [phone] Encounter Details Date Type Department Care Team (Late st Contact Info) Description 07/26/2012 Abstract [facility] Health Information Management [address] [place] [address] [place], Primary Care [address] [place] [address] Social History Tobacco Use Types Packs/Day Years [...] EDT Procedure visit [facility] [address] [place] [address] 202 [place] [address] 10/31/2024 1:00 PM EDT Telemedicine Cancer Center at [facility] 240 [facility] Building [address] [place], [place] [address] Ronald Mills MD 240 [facility] Max [address] [place] [address] documented as of this encounter Visit Diagnoses Not on filedocumented in this encounter Additional Health Concerns Infection Onset Date Last Indicated Resolved Time COVID-19 03/05/2022 03/05/2022 03/15/2022 7:18 PM EDT documented as of this encounter Care Teams Analog Device Designer Relationship Specialty Start Date End Date Caitlyn Bowie MD 3400 [facility] 1 [place] [address] PCP - General Internal Medicine 05/06/21 Henry Kelly MD Pulmonary Department 175 [facility], [address] [place] [address] Physician Pulmonary Disease 09/06/17 06/22/20 documented as of this encounter
--- OUTSIDE RECORDS SUMMARY | 2024-09-11 13:06 | XMS_ITS | Clinical Summary ---
Author Organization [facility] Address [address] [place] [address] Care Team Providers Care Roller Inspector And Mender Name Role Phone Brennan [place] MD Primary Care Provider [phone] Allergies Active Allergy Reactions Criticality Noted Date [...] age to complete this topic Care Teams Roller Inspector And Mender Relationship Specialty Start Date End Date Brennan [place] MD [address] [place] [address] PCP - General Internal Medicine 07/06/20
--- OUTSIDE RECORDS SUMMARY | 2024-09-11 13:06 | XMS_ITS | Encounter Summary ---
Author Organization [facility] and [facility] Address [address] [place] [address] Care Team Providers Care Electromedical Equipment Technician Name Role Phone Caitlyn Bowie MD Primary Care Provider +1- [phone] Encounter Details Date Type Department Care Team (Late st Contact Info) Description 11/29/2019 Scanned Document [facility] Health Information Management [address] [place] [address] External, Provider Social History Tobacco Use Types [...] EDT Procedure visit [facility] [address] [place] [address] [address] [place] [address] 10/31/2024 1:00 PM EDT Telemedicine Cancer Center at [facility] 240 [facility] [address] [place] [address] Ronald Mills MD 240 [facility] A1 [place] [address] documented as of this encounter Procedures Procedure [...] documented as of this encounter Care Teams Electromedical Equipment Technician Relationship Specialty Start Date End Date Caitlyn Bowie MD 3400 [facility] 1 [place] [address] PCP - General Internal Medicine 05/06/21 Henry Kelly MD Pulmonary Department 175 [facility], [address] [place] [address] Physician Pulmonary Disease 09/06/17 06/22/20 documented as of this encounter
--- OUTSIDE RECORDS SUMMARY | 2024-09-11 13:06 | XMS_ITS | Encounter Summary ---
Author Organization [facility] Address [address] [place] [address] Care Team Providers Care Automatic Print Developer Name Role Phone Caitlyn Bowie MD Primary Care Provider +1- [phone] Encounter Details Date Type Department Care Team (Late st Contact Info) Description 04/18/2013 Documentation Hematology Program at [address] [address] Isis Ragland RN Social History Tobacco Use [...] Description 09/30/2024 8:30 PM EDT Procedure visit [facility] [address] [place] [address] [address] [place] [address] 10/31/2024 1:00 PM EDT Telemedicine Cancer Center at [address] [place], [place] [address] Ronald Mills MD [address] [place] [address] documented as of this encounter Visit Diagnoses Not on filedocumented in this encounter Additional Health Concerns Infection Onset Date Last Indicated Resolved Time COVID-19 03/05/2022 03/05/2022 03/15/2022 7:18 PM EDT documented as of this encounter Care Teams Automatic Print Developer Relationship Specialty Start Date End Date Caitlyn Bowie MD 3400 [facility] Max 1 [place] [address] PCP - General Internal Medicine 05/06/21 Henry Kelly MD Pulmonary Department 175 [facility], [address] [place] [address] Physician Pulmonary Disease 09/06/17 06/22/20 documented as of this encounter
--- OUTSIDE RECORDS SUMMARY | 2024-09-11 13:06 | XMS_ITS | Encounter Summary ---
Author Organization [facility] Address [address] [place] [address] Care Team Providers Care Network Admin Name Role Phone Brennan [place] MD Primary Care Provider [phone] Reason for Visit * Reason Comments Encopresis Encounter Details Date Type Department Care Team (Latest Contact Info) Description 08/23/2024 1:20 PM EST Office Visit Gastroenterology - [address] [facility] [address] [place] [phone] Saima Amor, ALON [address] [facility] [address] [address] Gastroesophageal reflux disease, unspecified whether esophagitis present [...] X week. No bleeding Very gassy. 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 Board Certified Gastroenterology [facility] W [phone] 299 [facility] 419 [place] [address] [email or web address] Saima Amor NP documented in this encounter Plan of Treatment Upcoming Encounters Date Type Department Care Team (Late st Contact Info) Description 10/09/2024 12:45 PM EDT Treatment [facility] Speech Therapy 175 [facility] 350 [place] [phone] Daphne Alarcon, CYTOLOGY MANAGER documented as of this encounter Goals Goal Patient Goal Type Associated Problems Recent Progress Patient-Stated? Author ST L[facility] General No Daphne Alarcon, CYTOLOGY MANAGER Note: Pt will improve cognitive linguistic function to participate and communicate in iADLs mod I ST STGs General No Daphne Alarcon, CYTOLOGY MANAGER Note: Pt will participate with development of [...] type documented in this encounter Care Teams Network Admin Relationship Specialty Start Date End Date Brennan [place] MD [address] [place] [address] PCP - General 05/06/24 documented as of this encounter
--- OUTSIDE RECORDS SUMMARY | 2024-09-11 13:06 | XMS_ITS | Encounter Summary ---
Author Organization [facility] and [facility] Address [address] [place] [address] Care Team Providers Care Hand Chain Maker Name Role Phone Caitlyn Bowie MD Primary Care Provider +1- [phone] Encounter Details Date Type Department Care Team (Late st Contact Info) Description 12/16/2016 Scanned Document [facility] Health Information Management [address] [place] [address] External, Provider Social History Tobacco Use Types [...] Description 09/30/2024 8:30 PM EDT Procedure visit [facility] [address] [place] [address] [address] [place] [address] 10/31/2024 1:00 PM EDT Telemedicine Cancer Center at [facility] 240 [facility] Building [address] [place], [place] [address] Ronald Mills MD 240 [facility] A1 [place] [address] documented as of this encounter Procedures Procedure [...] as of this encounter Care Teams Hand Chain Maker Relationship Specialty Start Date End Date Caitlyn Bowie MD 3400 [facility] 1 [place] [address] PCP - General Internal Medicine 05/06/21 Henry Kelly MD Pulmonary Department 175 [facility], [address] [place] [address] Physician Pulmonary Disease 09/06/17 06/22/20 documented as of this encounter
--- OUTSIDE RECORDS SUMMARY | 2024-09-11 13:06 | XMS_ITS | Encounter Summary ---
Author Organization [facility] Address [address] [place] [address] Care Team Providers Care [place] Dental Lab Technician Name Role Phone Victorino [place] MD Primary Care Provider Sharon Odonnell Primary Care Provider Brennan Castro MD Primary Care Provider Unavailab Hayden Montes MD Unavailable [phone] Pallavi Flood NP Unavailable [phone]- [phone] Caitlyn Bowie MD Primary Care Provider Johnathon shaver Encounter Details Date Type Department Care Team Description 07/06/2018 Pt. Non Urgent Medic al Question Pulmonology - [address] [place] [address] Henry Kelly MD Social History [...] on filedocumented in this encounter Care Teams [place] [facility] Lab Technician Relationship Specialty Start Date End Date Victorino [place] MD PCP - General Internal Medicine 12/21/17 08/01/18 Sharon Vides PCP - General Internal Medicine 08/02/18 05/26/20 Brennan [place] MD PCP - General Internal Medicine 05/27/20 12/07/21 Caitlyn Bowie MD [address] [place] [address] PCP - General Internal Medicine 12/08/21 Hayden Shah MD [address] [place] [address] Specialist Cardiovascular Disease 09/01/20 Pallavi Flood NP [address] [place] [address] Cardiology 09/01/20 documented as of this encounter
--- OUTSIDE RECORDS SUMMARY | 2024-09-11 13:06 | XMS_ITS | Encounter Summary ---
Author Organization [facility] Address [address] [place] [address] Care Team Providers Care Microphone Boom Operator Name Role Phone Caitlyn Bowie MD Primary Care Provider +1- [phone] Encounter Details Date Type Department Care Team (Late st Contact Info) Description 06/21/2012 Abstract Head & Neck Cancers Program at [address] [place] [address] [address] Mikel Lloyd MD [address] [place] [phone] (Fax) Social History Tobacco Use Types Packs/Day [...] Description 09/30/2024 8:30 PM EDT Procedure visit [facility] [address] [place] [address] [address] [place] [address] 10/31/2024 1:00 PM EDT Telemedicine Cancer Center at [address] [place] [address] Ronald Mills MD [address] [place] [address] [address] [place] [address] documented as of this encounter Visit Diagnoses Not on filedocumented in this encounter Additional Health Concerns Infection Onset Date Last Indicated Resolved Time COVID-19 03/05/2022 03/05/2022 03/15/2022 7:18 PM EDT documented as of this encounter Care Teams Microphone Boom Operator Relationship Specialty Start Date End Date Caitlyn Bowie MD 3400 [facility] 1 [place] [address] PCP - General Internal Medicine 05/06/21 Henry Kelly MD Pulmonary Department 175 [facility], [address] [place] [address] Physician Pulmonary Disease 09/06/17 06/22/20 documented as of this encounter
--- OUTSIDE RECORDS SUMMARY | 2024-09-11 13:06 | XMS_ITS | Encounter Summary ---
Author Organization [facility] Address [address] [place] [address] Care Team Providers Care Imaging Scheduler Name Role Phone Victorino Martin MD Primary Care Provider UnavailSharon Kimbrough Primary Care Provider Unava ilable Brennan Burnett MD Primary Care Provider Unavailab Hayden Montes MD Unavailable [phone] Pallavi Flood NP Unavailable [phone] Caitlyn Bowie MD Primary Care Provider Unava chhaya Reason for Visit * Reason Comments E-prescribe Rx Request Encounter Details Date Type Department Care Team Description 07/01/2018 Refill Pulmonology [address] [place] [address] Henry Kelly MD E-prescribe Rx [...] / Plan: [place] / Product Type: MEDICARE [id number] documented in this encounter Plan of Treatment Not on file documented as of this encounter Visit Diagnoses Not on filedocumented in this encounter Care Teams Imaging Scheduler Relationship Specialty Start Date End Date Victorino Martin MD PCP - General Internal Medicine 12/21/17 08/01/18 Sharon Vides PCP - General Internal Medicine 08/02/18 05/26/20 Brennan Burnett MD PCP - General Internal Medicine 05/27/20 12/07/21 Caitlyn Bowie MD [address] [place] [address] PCP - General Internal Medicine 12/08/21 Hayden Shah MD [address] [place] [address] Specialist Cardiovascular Disease 09/01/20 Remigio, Pallavi Day, BAR PORTER [address] [place] [address] Cardiology 09/01/20 documented as of this encounter
--- OUTSIDE RECORDS SUMMARY | 2024-09-11 13:06 | XMS_ITS | Encounter Summary ---
Author Organization [facility] and [facility] Address [address] [place] [address] Care Team Providers Care Unit Nurse Name Role Phone Caitlyn Bowie MD Primary Care Provider [phone]- [phone] Encounter Details Date Type Department Care Team (Late st Contact Info) Description 07/12/2019 Scanned Document Onco-Oncology Program at [address] [place] [address] Norma Renee MD [address] [place] [address] 2 [place] [phone] Social History Tobacco Use Types Packs/Day Years [...] Description 09/30/2024 8:30 PM EDT Procedure visit [facility] [address] [place] [address] 10/31/2024 1:00 PM EDT Telemedicine Cancer Center at [address] [place], [place] [address] Ronald Mills MD 240 [facility] [address] [place] [address] documented as of this encounter Visit Diagnoses Not on filedocumented in this encounter Additional Health Concerns Infection Onset Date Last Indicated Resolved Time COVID-19 03/05/2022 03/05/2022 03/15/2022 7:18 PM EDT Assessment Noted Time PHQ-9 Depression Total Score: 2 11/07/19 19 2:06 PM EDT documented as of this encounter Care Teams Unit Nurse Relationship Specialty Start Date End Date Caitlyn Bowie MD 3400 [facility] 1 [place] [address] PCP - General Internal Medicine 05/06/21 Henry Kelly MD Pulmonary Department [address] [place] [address], [address] [place] [address] Physician Pulmonary Disease 09/06/17 06/22/20 documented as of this encounter
--- OUTSIDE RECORDS SUMMARY | 2024-09-11 13:06 | XMS_ITS | Encounter Summary ---
Author Organization [facility] Address [address] [place] [address] Care Team Providers Care Bag Loader Machine Operator Name Role Phone Victorino Martin MD Primary Care Provider Sharon Odonnell Primary Care Provider Brennan Castro MD Primary Care Provider Unavailab Hayden Montes MD Unavailable [phone] Pallavi Flood NP Unavailable [phone]- [phone] Caitlyn Bowie MD Primary Care Provider Johnathon shaver Encounter Details Date Type Department Care Team Description 07/12/2018 Orders Only Pulmonology - [address] [place] [address] Henry Kelly MD Social History [...] filedocumented in this encounter Care Teams Bag Loader Machine Operator Relationship Specialty Start Date End Date Victorino Martin MD PCP - General Internal Medicine 12/21/17 08/01/18 Sharon Vides PCP - General Internal Medicine 08/02/18 05/26/20 Brennan Burnett MD PCP - General Internal Medicine 05/27/20 12/07/21 Caitlyn Bowie MD [address] [place] [address] PCP - General Internal Medicine 12/08/21 Hayden Shah MD [address] [place], [place] [address] Specialist Cardiovascular Disease 09/01/20 Pallavi Flood NP [address] [place] [address] Cardiology 09/01/20 documented as of this encounter
--- OUTSIDE RECORDS SUMMARY | 2024-09-11 13:06 | XMS_ITS | Encounter Summary ---
Author Organization [facility] and [facility] Address [address] [place] [address] Care Team Providers Care Lcpc Name Role Phone Caitlyn Bowie MD Primary Care Provider [phone]- [phone] Encounter Details Date Type Department Care Team (Late st Contact Info) Description 12/16/2016 Scanned Document [facility] Health Information Management [address] [place] [address] External, Provider Social History Tobacco Use [...] Description 09/30/2024 8:30 PM EDT Procedure visit [facility] [address] [place] [address] [address] [place] [address] 10/31/2024 1:00 PM EDT Telemedicine [facility] at [facility] 240 [facility] Building [address] [place], [place] [address] Ronald Mills MD 240 [facility] A1 [place] [address] documented as of this encounter Procedures Procedure [...] documented as of this encounter Care Teams Lcpc Relationship Specialty Start Date End Date Caitlyn Bowie MD 3400 [facility] 1 [place] [address] PCP - General Internal Medicine 05/06/21 Henry Kelly MD Pulmonary Department 175 [facility], [address] [place] [address] Physician Pulmonary Disease 09/06/17 06/22/20 documented as of this encounter
--- OUTSIDE RECORDS SUMMARY | 2024-09-11 13:06 | XMS_ITS | Encounter Summary ---
Author Organization [facility] and [facility] Address [address] [place] [address] Care Team Providers Care Iridologist Name Role Phone Caitlyn Bowie MD Primary Care Provider [phone]- [phone] Encounter Details Date Type Department Care Team (Late st Contact Info) Description 08/29/2019 Scanned Document Cancer Center at [address] [address] External, Provider Social History Tobacco Use Types [...] 09/30/2024 8:30 PM EDT Procedure visit [facility] [address] [place] [address] [address] [place] [address] 10/31/2024 1:00 PM EDT Telemedicine Cancer Center at [address] [place] [address] Ronald Mills MD [address] [address] documented as of this encounter [...] documented as of this encounter Care Teams Iridologist Relationship Specialty Start Date End Date Caitlyn Bowie MD 3400 [facility] Max 1 [place] [address] PCP - General Internal Medicine 05/06/21 Henry Kelly MD Pulmonary Department [address] [place] [address], [address] [place] [address] Physician Pulmonary Disease 09/06/17 06/22/20 documented as of this encounter
--- OUTSIDE RECORDS SUMMARY | 2024-09-11 13:06 | XMS_ITS | Encounter Summary ---
Author Organization [facility] and [facility] Address [address] [place] [address] Care Team Providers Care Dope House Operator Helper Name Role Phone Caitlyn Bowie MD Primary Care Provider [phone]- [phone] Encounter Details Date Type Department Care Team (Late st Contact Info) Description 12/16/2016 Scanned Document [facility] Health Information Management [address] [place] [address] External, Provider Social History Tobacco Use Types [...] EDT Procedure visit [facility] [address] [place] [address] [address] [place] [address] 10/31/2024 1:00 PM EDT [facility]icine [facility] 240 [facility] Building [address] [place], [place] [address] Ronald Mills MD 240 [facility] A1 [place] [phone] documented as of this encounter Procedures Procedure [...] documented as of this encounter Care Teams Dope House Operator Helper Relationship Specialty Start Date End Date Caitlyn Bowie MD 3400 [facility] Max 1 [place] [address] PCP - General Internal Medicine 05/06/21 Henry Kelly MD Pulmonary Department 175 [facility], [address] [place] [address] Physician Pulmonary Disease 09/06/17 06/22/20 documented as of this encounter
--- OUTSIDE RECORDS SUMMARY | 2024-09-11 13:07 | XMS_ITS | Encounter Summary ---
Author Organization [facility] Address [address] [place] [address] Care Team Providers Care Headwaiter/Headwaitress Name Role Phone Victorino Martin MD Primary Care Provider Sharon Odonnell Primary Care Provider Brennan Castro MD Primary Care Provider UnavailHayden Fernandez MD Unavailable [phone] Pallavi Flood NP Unavailable [phone] Caitlyn Bowie MD Primary Care Provider Johnathon shaver Encounter Details Date Type Department Care Team Description 02/02/2018 [facility] Medical Records [address] [place] [address] Abstract, Provider Social History Tobacco Use Types [...] on filedocumented in this encounter Care Teams Headwaiter/Headwaitress Relationship Specialty Start Date End Date Victorino Martin MD PCP - General Internal Medicine 12/21/17 08/01/18 Sharon Vides PCP - General Internal Medicine 08/02/18 05/26/20 Brennan Burnett MD PCP - General Internal Medicine 05/27/20 12/07/21 Caitlyn Bowie MD [address] [place] [address] PCP - General Internal Medicine 12/08/21 Hayden Shah MD [address] [place] [phone] Specialist Cardiovascular Disease 09/01/20 Pallavi Flood NP [address] [place] [phone] Cardiology 09/01/20 documented as of this encounter
--- OUTSIDE RECORDS SUMMARY | 2024-09-11 13:07 | XMS_ITS | Encounter Summary ---
Author Organization [facility] and [facility] Address [address] [place] [address] Care Team Providers Care Champion Of Sustainable Design Name Role Phone Caitlyn Bowie MD Primary Care Provider [phone]- [phone] Encounter Details Date Type Department Care Team (Late st Contact Info) Description 02/21/2017 Scanned Document [facility] Health Information Management [address] [place] [address] External, Provider Social History Tobacco Use Types [...] Description 09/30/2024 8:30 PM EDT Procedure visit [facility] [address] [place] [address] [address] [place] [address] 10/31/2024 1:00 PM EDT Telemedicine Cancer Center at [facility] 240 [facility] Building [address] [place], [place] [address] Ronald Mills MD 240 [facility] A1 [place] [address] documented as of this encounter Procedures Procedure [...] documented as of this encounter Care Teams Champion Of Sustainable Design Relationship Specialty Start Date End Date Caitlyn Bowie MD 3400 [facility] 1 [place] [address] PCP - General Internal Medicine 05/06/21 Henry Kelly MD Pulmonary Department 175 [facility], [address] [place] [address] Physician Pulmonary Disease 09/06/17 06/22/20 documented as of this encounter
--- OUTSIDE RECORDS SUMMARY | 2024-09-11 13:07 | XMS_ITS | Encounter Summary ---
Author Organization [facility] and [facility] Address [address] [place] [address] Care Team Providers Care Tractor Trailer Driver Name Role Phone Caitlyn Bowie MD Primary Care Provider [phone]- [phone] Encounter Details Date Type Department Care Team (Late st Contact Info) Description 03/01/2017 Scanned Document Onco-Oncology Program at [address] [address] Norma Renee MD [address] [place] [phone] Social History Tobacco Use Types Packs/Day Years [...] Description 09/30/2024 8:30 PM EDT Procedure visit [facility] [address] [place] [address] [address] [place] [address] 10/31/2024 1:00 PM EDT Telemedicine Cancer Center at [address] [place], [place] [address] Ronald Mills MD 240 [facility] [address] [place] [address] documented as of this encounter Visit Diagnoses Not on filedocumented in this encounter Additional Health Concerns Infection Onset Date Last Indicated Resolved Time COVID-19 03/05/2022 03/05/2022 03/15/2022 7:18 PM EDT documented as of this encounter Care Teams Tractor Trailer Driver Relationship Specialty Start Date End Date Caitlyn Bowie MD 3400 [facility] 1 [place] [address] PCP - General Internal Medicine 05/06/21 Henry Kelly MD Pulmonary Department [address] [place] [address], [address] [place] [address] Physician Pulmonary Disease 09/06/17 06/22/20 documented as of this encounter
--- OUTSIDE RECORDS SUMMARY | 2024-09-11 13:07 | XMS_ITS | Encounter Summary ---
Author Organization [facility] Address [address] [place] [address] Care Team Providers Care Turn Operator Name Role Phone Victorino Martin MD Primary Care Provider Sharon Odonnell Primary Care Provider Brennan Castro MD Primary Care Provider UnavailHayden Fernandez MD Unavailable [phone] Pallavi Flood NP Unavailable [phone] Caitlyn Bowie MD Primary Care Provider Johnathon shaver Encounter Details Date Type Department Care Team Description 01/26/2018 [facility] Medical Records [address] [place] [address] Social History Tobacco Use Types Packs/Day Years [...] on filedocumented in this encounter Care Teams Turn Operator Relationship Specialty Start Date End Date Victorino Martin MD PCP - General Internal Medicine 12/21/17 08/01/18 Sharon Vides PCP - General Internal Medicine 08/02/18 05/26/20 Brennan Burnett MD PCP - General Internal Medicine 05/27/20 12/07/21 Caitlyn Bowie MD [address] [place] [address] PCP - General Internal Medicine 12/08/21 Hayden Shah MD [address] [place], [place] [address] Specialist Cardiovascular Disease 09/01/20 Pallavi Flood NP [address] [place] [address] Cardiology 09/01/20 documented as of this encounter
--- OUTSIDE RECORDS SUMMARY | 2024-09-11 13:07 | XMS_ITS | Encounter Summary ---
Author Organization [facility] Address [address] [place] [address] Care Team Providers Care Forensic Chemist Name Role Phone Cristofer Hope MD Primary Care Provider Victorino Read MD Primary Care Provider UnavailSharon Kimbrough Primary Care Provider Unava ilBrennan Newman MD Primary Care Provider Unavailab Hayden Montes MD Unavailable [phone] Pallavi Flood NP Unavailable [phone] Caitlyn Bowie MD Primary Care Provider Unava chhaya Encounter Details Date Type Department Care Team Description 06/12/2017 Transfer Records Medical Records [address] [place] [address] Abstract, Provider Social History Tobacco Use Types [...] on filedocumented in this encounter Care Teams Forensic Chemist Relationship Specialty Start Date End Date Cristofer Hope MD PCP - General Internal Medicine 05/16/17 12/20/17 Victorino Martin MD PCP - General Internal Medicine 12/21/17 08/01/18 Sharon Vides PCP - General Internal Medicine 08/02/18 05/26/20 Brennan Burnett MD PCP - General Internal Medicine 05/27/20 12/07/21 Caitlyn Bowie MD [address] [place] [address] PCP - General Internal Medicine 12/08/21 Hayden Shah MD [address] [place], [place] [address] Specialist Cardiovascular Disease 09/01/20 Pallavi Flood NP [address] [place], [place] [address] Cardiology 09/01/20 documented as of this encounter
--- OUTSIDE RECORDS SUMMARY | 2024-09-11 13:07 | XMS_ITS | Encounter Summary ---
Author Organization [facility] Address [address] [place] [address] Care Team Providers Care Water Restoration Technician Name Role Phone Cristofer Hope MD Primary Care Provider Victorino Read MD Primary Care Provider UnavailSharon Kimbrough Primary Care Provider Unava ilBrennan Newman MD Primary Care Provider Unavailab Hayden Montes MD Unavailable [phone] Pallavi Flood NP Unavailable [phone] Caitlyn Bowie MD Primary Care Provider Unava chhaya Encounter Details Date Type Department Care Team Description 06/21/2017 Release of Information Medical Records [address] [place] [address] Abstract, Provider Social History Tobacco Use Types [...] on filedocumented in this encounter Care Teams Water Restoration Technician Relationship Specialty Start Date End Date Cristofer Hope MD PCP - General Internal Medicine 05/16/17 12/20/17 Victorino Martin MD PCP - General Internal Medicine 12/21/17 08/01/18 Sharon Vides PCP - General Internal Medicine 08/02/18 05/26/20 Brennan Burnett MD PCP - General Internal Medicine 05/27/20 12/07/21 Caitlyn Bowie MD [address] [place] [address] PCP - General Internal Medicine 12/08/21 Hayden Shah MD [address] [place] [address] Specialist Cardiovascular Disease 09/01/20 Pallavi Flood NP [address] [place] [address] Cardiology 09/01/20 documented as of this encounter
--- OUTSIDE RECORDS SUMMARY | 2024-09-11 13:07 | XMS_ITS | Encounter Summary ---
Author Organization [facility] and [facility] Address [address] [place] [address] Care Team Providers Care Assembly Line Brazer Name Role Phone Caitlyn Bowie MD Primary Care Provider [phone]- [phone] Encounter Details Date Type Department Care Team (Late st Contact Info) Description 04/16/2021 Scanned Document INTERFACE DEFAULT [address] [place] [address] System, Provider Not In Social History Tobacco [...] Description 09/30/2024 8:30 PM EDT Procedure visit [facility] [address] [place] [address] [address] [place] [address] 10/31/2024 1:00 PM EDT Telemedicine [facility] at [facility] 240 [facility] Building [address] [place] [address] Ronald Mills MD 240 [facility] A1 [place] [address] documented as of this encounter [...] documented as of this encounter Care Teams Assembly Line Brazer Relationship Specialty Start Date End Date Caitlyn Bowie MD [address] [address] PCP - General Internal Medicine 05/06/21 documented as of this encounter
--- OUTSIDE RECORDS SUMMARY | 2024-09-11 13:07 | XMS_ITS | Encounter Summary ---
Author Organization [facility] Address [address] [place] [address] Care Team Providers Care Dev Technical Mgr Name Role Phone Brennan Burnett MD Primary Care Provider [phone] Reason for Visit * Reason Onset Date Comments returning pt call 08/19/2024 Encounter Details Date Type Department Care Team (Late st Contact Info) Description 08/19/2024 Telephone [facility] Speech Therapy [address] [address] Daphne Alarcon, STEEL PLATE PRINTER returning pt call Social History Tobacco Use [...] call about receiving a copy of her STEEL PLATE PRINTER evaluation. She has called medical records and was not able to reach an employee. She does not use [employer] and is requesting a copy of her records. Left her VM with information to complete medical release form (can be emailed or mailed) and then how to submit completed form. documented in this encounter Plan of Treatment Upcoming Encounters Date Type Department Care Team (Late st Contact Info) Description 10/09/2024 12:45 PM EDT Treatment [facility] Speech Therapy [address] [place] [address] Daphne Alarcon STEEL PLATE PRINTER documented as of this encounter Goals Goal Patient Goal Type Associated Problems Recent Progress Patient-Stated? Author ST LTG General No Daphne Alarcon, STEEL PLATE PRINTER Note: Pt will improve cognitive linguistic function to participate and communicate in iADLs mod I ST STGs General No Daphne Alarcon, STEEL PLATE PRINTER Note: Pt will participate with development of [...] on filedocumented in this encounter Care Teams Dev Technical Mgr Relationship Specialty Start Date End Date Brennan Burnett MD [address] [place] [address] PCP - General 05/06/24 documented as of this encounter
--- OUTSIDE RECORDS SUMMARY | 2024-09-11 13:07 | XMS_ITS | Encounter Summary ---
Author Organization [facility] Address [address] [place] [address] Care Team Providers Care Evs Attendant Name Role Phone Victorino Martin MD Primary Care Provider Sharon Odonnell Primary Care Provider Brennan Castro MD Primary Care Provider UnavailHayden Fernandez MD Unavailable [phone] Pallavi Flood NP Unavailable [phone] Caitlyn Bowie MD Primary Care Provider Johnathon shaver Encounter Details Date Type Department Care Team Description 03/01/2018 [facility] Medical Records [address] [place] [address] Renetta Lugo Np Social History Tobacco Use [...] on filedocumented in this encounter Care Teams Evs Attendant Relationship Specialty Start Date End Date Victorino Martin MD PCP - General Internal Medicine 12/21/17 08/01/18 Sharon Vides PCP - General Internal Medicine 08/02/18 05/26/20 Brennan Burnett MD PCP - General Internal Medicine 05/27/20 12/07/21 Caitlyn Bowie MD [address] [place] [address] PCP - General Internal Medicine 12/08/21 Hayden Shah MD [address] [place], [place] [phone] Specialist Cardiovascular Disease 09/01/20 Pallavi Flood NP [address] [place] [phone] Cardiology 09/01/20 documented as of this encounter
--- OUTSIDE RECORDS SUMMARY | 2024-09-11 13:07 | XMS_ITS | Encounter Summary ---
Author Organization [facility] and [facility] Address [address] [place] [address] Care Team Providers Care Coating Supervisor Name Role Phone Caitlyn Bowie MD Primary Care Provider [phone]- [phone] Encounter Details Date Type Department Care Team (Late st Contact Info) Description 03/23/2021 Scanned Document INTERFACE DEFAULT [address] [place] [address] System, Provider Not In Social History Tobacco [...] 09/30/2024 8:30 PM EDT Procedure visit [facility] [address] [place] [address] [address] [place] [address] 10/31/2024 1:00 PM EDT Telemedicine Cancer Center at [facility] 240 [facility] [address] [place] [address] Ronald Mills MD 240 [facility] A1 [place] [address] documented as of this encounter [...] documented as of this encounter Care Teams Coating Supervisor Relationship Specialty Start Date End Date Caitlyn Bowie MD [facility] [address] [address] PCP - General Internal Medicine 05/06/21 documented as of this encounter
--- OUTSIDE RECORDS SUMMARY | 2024-09-11 13:07 | XMS_ITS | Encounter Summary ---
Author Organization [facility] Address [address] [place] [address] Care Team Providers Care Medical Assistant Name Role Phone Cristofer Hope MD Primary Care Provider Maria GuadalupevaVictorino Negrete MD Primary Care Provider Unavaila Sharon Rios Primary Care Provider Unava ilable Brennan Burnett MD Primary Care Provider Unavailab Hayden Montes MD Unavailable [phone] Pallavi Flood NP Unavailable [phone]- [phone] Caitlyn Bowie MD Primary Care Provider Unava ilable Reason for Visit * Reason Onset Date Comments Medication 10/26/2017 Encounter Details Date Type Department Care Team Description 10/26/2017 Telephone Pulmonology - [address] [place] [address] Leslie Caro NP Medication Social [...] EDT Pharmacist Mat from [facility] [place] said that they are not carrying Ephinephrine 0.3mg/0.30ml in the brand her insurance pays for he said to call [phone] [facility] [id number] ifTfareed can expatiated this documented in this encounter Plan of Treatment Not on file documented as of this encounter Visit Diagnoses Not on filedocumented in this encounter Care Teams Medical Assistant Relationship Specialty Start Date End Date Cristofer Hope MD PCP - General Internal Medicine 05/16/17 12/20/17 Victorino Martin MD PCP - General Internal Medicine 12/21/17 08/01/18 Sharon Vides PCP - General Internal Medicine 08/02/18 05/26/20 Brennan Burnett MD PCP - General Internal Medicine 05/27/20 12/07/21 Caitlyn Bowie MD [address] [place] [address] PCP - General Internal Medicine 12/08/21 Hayden Shah MD [address] [place] [address] Specialist Cardiovascular Disease 09/01/20 Pallavi Flood NP [address] [place] [address] Cardiology 09/01/20 documented as of this encounter
--- OUTSIDE RECORDS SUMMARY | 2024-09-11 13:07 | XMS_ITS | Encounter Summary ---
Author Organization [facility] Address [address] [place] [address] Care Team Providers Care Impregnator Helper Name Role Phone Caitlyn Bowie MD Primary Care Provider [phone]- [phone] Encounter Details Date Type Department Care Team (Late st Contact Info) Description 03/24/2021 Scanned Document INTERFACE DEFAULT [address] [place] [address] System, Provider Not In Social History Tobacco [...] Description 09/30/2024 8:30 PM EDT Procedure visit [facility] [address] [place] [address] [address] [place] [address] 10/31/2024 1:00 PM EDT Telemedicine [facility] [address] [facility] [address] [place] [address] Ronald Mills MD 240 [facility] [address] [place] [address] documented as of this encounter Visit Diagnoses Not on filedocumented in this encounter Additional Health Concerns Infection Onset Date Last Indicated Resolved Time COVID-19 03/05/2022 03/05/2022 03/15/2022 7:18 PM EDT Assessment Noted Time PHQ-9 Depression Total Score: 2 11/07/19 19 2:06 PM EDT documented as of this encounter Care Teams Impregnator Helper Relationship Specialty Start Date End Date Caitlyn Bowie MD [address] [address] PCP - General Internal Medicine 05/06/21 documented as of this encounter
--- OUTSIDE RECORDS SUMMARY | 2024-09-11 13:07 | XMS_ITS | Encounter Summary ---
Author Organization [facility] and [facility] Address [address] [place] [address] Care Team Providers Care Middleware Engineer Name Role Phone Caitlyn Bowie MD Primary Care Provider +1- [phone] Encounter Details Date Type Department Care Team (Late st Contact Info) Description 04/13/2021 Scanned Document INTERFACE DEFAULT [address] [place] [address] System, Provider Not In Social History Tobacco [...] Description 09/30/2024 8:30 PM EDT Procedure visit [facility] [address] [place] [address] [address] [place] [address] 10/31/2024 1:00 PM EDT Telemedicine [facility] at [facility] 240 [facility] [address] [place] [address] Ronald Mills MD 240 [facility] [address] [place] [address] documented as of this encounter [...] documented as of this encounter Care Teams Middleware Engineer Relationship Specialty Start Date End Date Caitlyn Bowie MD [facility] [address] [address] PCP - General Internal Medicine 05/06/21 documented as of this encounter
--- OUTSIDE RECORDS SUMMARY | 2024-09-11 13:07 | XMS_ITS | Encounter Summary ---
Author Organization [facility] Address [address] [place] [address] Care Team Providers Care Pmo Consultant Name Role Phone Victorino Martin MD Primary Care Provider UnavailSharon Kimbrough Primary Care Provider Unava ilable Brennan Burnett MD Primary Care Provider Unavailab Hayden Montes MD Unavailable [phone] Pallavi Flood NP Unavailable [phone]- [phone] Caitlyn Bowie MD Primary Care Provider Unava chhaya Reason for Visit * Reason Onset Date Comments lab test 04/04/2018 Encounter Details Date Type Department Care Team Description 04/04/2018 Telephone Pulmonology - [address] [place] [address] Henry Kelly MD lab test [...] on filedocumented in this encounter Care Teams Pmo Consultant Relationship Specialty Start Date End Date Victorino Martin MD PCP - General Internal Medicine 12/21/17 08/01/18 Sharon Vides PCP - General Internal Medicine 08/02/18 05/26/20 Brennan Burnett MD PCP - General Internal Medicine 05/27/20 12/07/21 Caitlyn Bowie MD [address] [place] [address] PCP - General Internal Medicine 12/08/21 aHyden Shah MD [address] [place] [address] Specialist Cardiovascular Disease 09/01/20 Pallavi Flood NP [address] [place] [address] Cardiology 09/01/20 documented as of this encounter
--- OUTSIDE RECORDS SUMMARY | 2024-09-11 13:07 | XMS_ITS | Encounter Summary ---
Author Organization [facility] Address [address] [place] [address] Care Team Providers Care Rivet Spinner Name Role Phone Caitlyn Bowie MD Primary Care Provider +1- [phone] Encounter Details Date Type Department Care Team (Late st Contact Info) Description 04/10/2021 Scanned Document INTERFACE DEFAULT [address] [place] [address] System, Provider Not In Social History Tobacco [...] Description 09/30/2024 8:30 PM EDT Procedure visit [facility] [address] [place] [address] [address] [place] [address] 10/31/2024 1:00 PM EDT Telemedicine [facility] 240 [facility] [address] [place] [address] Ronald Mills MD 240 [facility] [address] [place] [address] documented as of this encounter Procedures Procedure [...] as of this encounter Care Teams Rivet Spinner Relationship Specialty Start Date End Date Caitlyn Bowie MD [address] [address] PCP - General Internal Medicine 05/06/21 documented as of this encounter
--- OUTSIDE RECORDS SUMMARY | 2024-09-11 13:07 | XMS_ITS | Encounter Summary ---
Author Organization [facility] Address [address] [place] [address] Care Team Providers Care Hall Director Name Role Phone Victorino Martin MD Primary Care Provider Sharon Odonnell Primary Care Provider Brennan Castro MD Primary Care Provider UnavailHayden Fernandez MD Unavailable [phone] Pallavi Flood NP Unavailable [phone]- [phone] Caitlyn Bowie MD Primary Care Provider Johnathon shaver Encounter Details Date Type Department Care Team Description 02/07/2018 Silk Screen Layout Drafter Report Medical Records [address] [place] [address] Victorino Martin MD Social History Tobacco Use [...] on filedocumented in this encounter Care Teams Hall Director Relationship Specialty Start Date End Date Victorino Martin MD PCP - General Internal Medicine 12/21/17 08/01/18 Sharon Vides PCP - General Internal Medicine 08/02/18 05/26/20 Brennan Burnett MD PCP - General Internal Medicine 05/27/20 12/07/21 Caitlyn Bowie MD [address] [place] [address] PCP - General Internal Medicine 12/08/21 Hayden Shah MD [address] [place] [address]107 Specialist Cardiovascular Disease 09/01/20 Pallavi Flood NP [address] [place] [address] Cardiology 09/01/20 documented as of this encounter
--- OUTSIDE RECORDS SUMMARY | 2024-09-11 13:07 | XMS_ITS | Encounter Summary ---
Author Organization [facility] Address [address] [place] [address] Care Team Providers Care Confidential Secretary Name Role Phone Caitlyn Bowie MD Primary Care Provider +1- [phone] Encounter Details Date Type Department Care Team (Late st Contact Info) Description 04/12/2021 Scanned Document INTERFACE DEFAULT [address] [place] [address] System, Provider Not In Social History Tobacco [...] Description 09/30/2024 8:30 PM EDT Procedure visit [facility] [address] [place] [address] [address] [place] [address] 10/31/2024 1:00 PM EDT Telemedicine [facility] 240 [facility] [address] [place] [address] Ronald Mills MD 240 [facility] [address] [place] [address] documented as of this encounter Procedures Procedure [...] as of this encounter Care Teams Confidential Secretary Relationship Specialty Start Date End Date Caitlyn Bowie MD [facility] [address] [address] PCP - General Internal Medicine 05/06/21 documented as of this encounter
--- OUTSIDE RECORDS SUMMARY | 2024-09-11 13:07 | XMS_ITS | Encounter Summary ---
Author Organization [facility] and [facility] Address [address] [place] [address] Care Team Providers Care Carton Inspector Name Role Phone Caitlyn Bowie MD Primary Care Provider +1- [phone] Encounter Details Date Type Department Care Team (Late st Contact Info) Description 04/11/2021 Scanned Document INTERFACE DEFAULT [address] [place] [address] System, Provider Not In Social History Tobacco [...] Description 09/30/2024 8:30 PM EDT Procedure visit [facility] [address] [place] [address] [address] [place] [address] 10/31/2024 1:00 PM EDT Telemedicine [facility] at [facility] 240 [facility] [address] [place] [address] Ronald Mills MD 240 [facility] [address] [place] [address] documented as of this encounter Procedures Procedure [...] as of this encounter Care Teams Carton Inspector Relationship Specialty Start Date End Date Caitlyn Bowie MD [facility] [address] [address] PCP - General Internal Medicine 05/06/21 documented as of this encounter
--- OUTSIDE RECORDS SUMMARY | 2024-09-11 13:07 | XMS_ITS | Encounter Summary ---
Author Organization [facility] and [facility] Address [address] [place] [address] Care Team Providers Care Hand Booked Folder And Stitcher Name Role Phone Caitlyn Bowie MD Primary Care Provider +1- [phone] Encounter Details Date Type Department Care Team (Late st Contact Info) Description 04/26/2017 Scanned Document Cardiovascular Medicine at [address] [place] [address] Norma Renee MD [address] [place] [phone] Social History Tobacco Use Types Packs/Day Years [...] Description 09/30/2024 8:30 PM EDT Procedure visit [facility] [address] [place] [address] [address] [place] [address] 10/31/2024 1:00 PM EDT Telemedicine [facility] at [facility] 240 [facility] [address] [place] [address] Ronald Mills MD 240 [facility] [address] [place] [address] documented as of this encounter Visit Diagnoses Not on filedocumented in this encounter Additional Health Concerns Infection Onset Date Last Indicated Resolved Time COVID-19 03/05/2022 03/05/2022 03/15/2022 7:18 PM EDT documented as of this encounter Care Teams Hand Booked Folder And Stitcher Relationship Specialty Start Date End Date Caitlyn Bowie MD 3400 [facility] 1 [place] [address] PCP - General Internal Medicine 05/06/21 Henry Kelly MD Pulmonary Department 175 [facility], [address] [place] [address] Physician Pulmonary Disease 09/06/17 06/22/20 documented as of this encounter
--- OUTSIDE RECORDS SUMMARY | 2024-09-11 13:07 | XMS_ITS | Encounter Summary ---
Author Organization [facility] Address [address] [place] [address] Care Team Providers Care Industrial Ecologist Name Role Phone Cristofer Hope MD Primary Care Provider Victorino Read MD Primary Care Provider UnavailSharon Kimbrough Primary Care Provider Unava ilBrennan Newman MD Primary Care Provider Unavailab Hayden Montes MD Unavailable [phone] Pallavi Flood NP Unavailable [phone] Caitlyn Bowie MD Primary Care Provider Unava chhaya Encounter Details Date Type Department Care Team Description 06/15/2017 Transfer Records Medical Records [address] [place] [address] Abstract, Provider Social History Tobacco Use Types [...] filedocumented in this encounter Care Teams Industrial Ecologist Relationship Specialty Start Date End Date Cristofer Hope MD PCP - General Internal Medicine 05/16/17 12/20/17 Victorino Martin MD PCP - General Internal Medicine 12/21/17 08/01/18 Sharon Vides PCP - General Internal Medicine 08/02/18 05/26/20 Brennan Burnett MD PCP - General Internal Medicine 05/27/20 12/07/21 Caitlyn Bowie MD [address] [place] [address] PCP - General Internal Medicine 12/08/21 Hayden Shah MD [address] [place], [place] [address] Specialist Cardiovascular Disease 09/01/20 Pallavi Flood NP [address] [place], [place] [phone] Cardiology 09/01/20 documented as of this encounter
--- OUTSIDE RECORDS SUMMARY | 2024-09-11 13:07 | XMS_ITS | Encounter Summary ---
Author Organization [facility] Address [address] [place] [address] Care Team Providers Care Oil Mixer Name Role Phone Caitlyn Bowie MD Primary Care Provider +1- [phone] Encounter Details Date Type Department Care Team (Late st Contact Info) Description 04/26/2017 Scanned Document Cardiovascular Medicine at [address] [address] System, Provider Not In Social History Tobacco [...] Description 09/30/2024 8:30 PM EDT Procedure visit [facility] [address] [place] [address] [address] [place] [address] 10/31/2024 1:00 PM EDT Telemedicine Cancer [facility] at [facility] 240 [facility] [address] [place], [place] [phone] Ronald Mills MD 240 [facility] [address] [place] [address] documented as of this encounter [...] as of this encounter Care Teams Oil Mixer Relationship Specialty Start Date End Date Caitlyn Bowie MD 3400 [facility] [address] 1 [place] [address] PCP - General Internal Medicine 05/06/21 Henry Kelly MD Pulmonary Department 175 [facility], [address] [place] [address] Physician Pulmonary Disease 09/06/17 06/22/20 documented as of this encounter
--- OUTSIDE RECORDS SUMMARY | 2024-09-11 13:07 | XMS_ITS | Encounter Summary ---
Author Organization [facility] and [facility] Address [address] [place] [address] Care Team Providers Care Media Producer Name Role Phone Caitlyn Bowie MD Primary Care Provider +1- [phone] Encounter Details Date Type Department Care Team (Late st Contact Info) Description 04/21/2021 Scanned Document INTERFACE DEFAULT [address] [place] [address] System, Provider Not In Social History Tobacco [...] Description 09/30/2024 8:30 PM EDT Procedure visit [facility] [address] [place] [address] [address] [place] [address] 10/31/2024 1:00 PM EDT Telemedicine [facility] 240 [facility] [address] [place] [address] Ronald Mills MD 240 [facility] A1 [place] [address] documented as of this encounter Procedures Procedure [...] as of this encounter Care Teams Media Producer Relationship Specialty Start Date End Date Caitlyn Bowie MD [address] [address] PCP - General Internal Medicine 05/06/21 documented as of this encounter
--- OUTSIDE RECORDS SUMMARY | 2024-09-11 13:07 | XMS_ITS | Encounter Summary ---
Author Organization [facility] Address [address] [place] [address] Care Team Providers Care Grey Percher Name Role Phone Caitlyn Bowie MD Primary Care Provider +1- [phone] Encounter Details Date Type Department Care Team (Late st Contact Info) Description 06/07/2017 Scanned Document [facility] Health Information Management [address] [place] [address] External, Provider Social History Tobacco Use Types [...] Description 09/30/2024 8:30 PM EDT Procedure visit [facility] [address] [place] [address] [address] [place] [address] 10/31/2024 1:00 PM EDT Telemedicine [facility] at [facility] 240 [facility] Building [address] [place], [place] [address] Ronald Mills MD 240 [facility] [address]1 [place] [address] documented as of this encounter [...] documented as of this encounter Care Teams Grey Percher Relationship Specialty Start Date End Date Caitlyn Bowie MD 3400 [facility] 1 [place] [address] PCP - General Internal Medicine 05/06/21 Henry Kelly MD Pulmonary Department 175 [facility], [address] [place] [address] Physician Pulmonary Disease 09/06/17 06/22/20 documented as of this encounter
--- OUTSIDE RECORDS SUMMARY | 2024-09-11 13:07 | XMS_ITS | Clinical Summary ---
Author Organization [address] Address [address] [place] [address] Phone Care Team Providers Care Sustainable Products Marketing Manager Name Role Phone Caitlyn Bowie MD Primary Care Provider +1- [phone] Allergies Active Allergy Reactions Criticality Noted Date [...] Type Department Care Team Description 08/30/2024 Abstract [facility] [address] [place] [phone] Adalgisa Whitney MD 07/15/2024 Telephone [facility] at [address] [address] Ronald Mills MD Triage from Last 3 [...] Description 09/30/2024 8:30 PM EDT Procedure visit [facility] [address] [place] [address] [address] [place] [address] 10/31/2024 1:00 PM EDT Telemedicine [facility] at [facility] [address] [facility] [address] [place], [place] [address] Ronald Mills MD 240 [facility] [address] [place] [phone] Health Maintenance Due Date Last Done Comments [...] - 144 mmol/L 04/05/2022 1:43 PM EDT [facility] LABORATORY MEDICINE [facility] Potassium 4.7 3.3 - 5.3 mmol/L 04/05/2022 1:43 PM EDT [facility] DEPARTMENT OF LABORATORY MEDICINE [facility] Chloride 100 98 - 107 mmol/L 04/05/2022 1:43 PM EDT [facility] DEPARTMENT OF LABORATORY MEDICINE [facility] CO2 30 20 - 30 mmol/L 04/05/2022 1:43 PM EDT [facility] DEPARTMENT OF LABORATORY MEDICINE [facility] Anion Gap 8 7 - 17 04/05/2022 1:43 PM EDT [facility] DEPARTMENT OF LABORATORY MEDICINE [facility] Glucose 115(H) 70 - 100 mg/dL 04/05/2022 1:43 PM EDT [facility] DEPARTMENT OF LABORATORY MEDICINE [facility] BUN 16 8 - 23 mg/dL 04/05/2022 1:43 PM EDT [facility] DEPARTMENT [facility] LABORATORY MEDICINE [facility] Creatinine 0.89 0.40 - 1.30 mg/dL 04/05/2022 1:43 PM EDT [facility] DEPARTMENT OF LABORATORY MEDICINE [facility] Calcium 10.5(H) 8.8 - 10.2 mg/dL 04/05/2022 1:43 PM EDT [facility] DEPARTMENT OF LABORATORY MEDICINE [facility] BUN/Creatinine Ratio 18.0 8.0 - 23.0 03/11 1:43 PM EDT [facility] DEPARTMENT OF LABORATORY MEDICINE [facility] Total Protein 7.0 6.6 - 8.7 g/dL 04/05/2022 1:43 PM EDT [facility] DEPARTMENT OF LABORATORY MEDICINE [facility] Albumin 4.2 3.6 - 4.9 g/dL 04/05/2022 1:43 PM EDT [facility] DEPARTMENT OF LABORATORY MEDICINE [facility] Total Bilirubin 0.6 <=1.2 mg/dL 04/05/2022 1:43 PM EDT [facility] DEPARTMENT OF LABORATORY MEDICINE [facility] Alkaline Phosphatase 58 9 - 122 U/L 04/05/2022 1:43 PM T [facility] DEPARTMENT OF LABORATORY MEDICINE [facility] Alanine Aminotransferase (ALT) 19 10 - 35 U/L 04/05/2022 1:43 PM EDT [facility] DEPARTMENT OF LABORATORY MEDICINE [facility] Comment:Calcium dobesilate c an cause artificially low ALT results at therapeutic concentrations Aspartate Aminotransferase (AST) 26 10 - 35 U/L 04/05/2022 1:43 PM EDT [facility] DEPARTMENT OF LABORATORY MEDICINE [facility] Globulin 2.8 2.3 - 3.5 g/dL 04/05/2022 1:43 PM EDT [facility] DEPARTMENT OF LABORATORY MEDICINE [facility] A/G Ratio 1.5 1.0 - 2.2 04/05/2022 1:43 PM EDT [facility] DEPARTMENT [facility] LABORATORY MEDICINE [facility] AST/ALT Ratio 1.4 See Comment 04/05/2022 1:43 PM EDT [facility] DEPARTMENT OF LABORATORY MEDICINE [facility] Comment: Adult with mild elevations of transaminases (< 5 times upper limit of normal): AST/ALT > 2 suggests alcoholic liver injury AST/ALT < 1 suggests non-alcoholic fatty liver disease (NAFLD) [place] (healthy): AST/ALT can be > 3 on day 0 AST/ALT < 2 by day 5 The thresholds provided focus on the most common etiologies of elevated serum transaminase levels and the associated alteration of AST:ALT ratios; they are not intended to exclude other feasible and clinically appropriate possibilities eGFR (Creatinine) >60 >=60 mL/min/1.7 3m2 04/05/2022 1:43 PM EDT [facility] DEPARTMENT OF LABORATORY MEDICINE [facility] Comment:Estimated glomerular filtration rate (eGFR) was [...] MD LAB BLOOD ORDERABLES Final Resul t [facility] DEPARTMENT OF LABORATORY MEDICINE [facility] [address] [place] [address] * Bone Density Result Scan (05/10/2017) us [...] ORDERABLES Fin al Result Performing Organization Address [facility]/State/[facility] Co de Phone Number [facility] [address] [place] [address] * MAMMOGRAPHY REPORT (04/25/2013 6:47 AM EDT) 04/25/2013 6:47 AM EDT us Provider Not In System IMG SCAN REPORTS Final Re sult from Last 3 Months or Most Recently Relevant to Health Maintenance Insurance MEDICARE [facility]ICARE [facility]IC[facility] MEDICARE MEDICARE [employer] Advance Directives * Full ACLS (Latest Code Status on File) Date Activated Date Inactivated Comments 12/15/2018 7:13 PM 12/16/2018 6:09 PM * Full Interventions Date Activated Date Inactivated Comments 03/18/2016 6:34 PM 03/19/2016 6:40 PM Care Teams Sustainable Products Marketing Manager Relationship Specialty Start Date End Date Caitlyn Bowie MD [address] [address] PCP - General Internal Medicine 05/06/21
--- OUTSIDE RECORDS SUMMARY | 2024-09-11 13:07 | XMS_ITS | Encounter Summary ---
Author Organization [facility] Address [address] [place] [address] Care Team Providers Care Port Surveyor Name Role Phone Caitlyn Bowie MD Primary Care Provider [phone]- [phone] Encounter Details Date Type Department Care Team (Late st Contact Info) Description 04/02/2021 Scanned Document INTERFACE DEFAULT [address] [place] [address] System, Provider Not In Social History Tobacco [...] Description 09/30/2024 8:30 PM EDT Procedure visit [facility] [address] [place] [address] [address] [place] [phone] 10/31/2024 1:00 PM EDT Telemedicine [facility] [address] [facility] [address] [place] [address] Ronald Mills MD 240 [facility] [address] [place] [address] documented as of this encounter [...] documented as of this encounter Care Teams Port Surveyor Relationship Specialty Start Date End Date Caitlyn Bowie MD [address] [address] PCP - General Internal Medicine 05/06/21 documented as of this encounter
--- OUTSIDE RECORDS SUMMARY | 2024-09-11 13:07 | XMS_ITS | Encounter Summary ---
Author Organization [facility] Address [address] [place] [address] Care Team Providers Care Epic Cadence Analyst Name Role Phone Caitlyn Bowie MD Primary Care Provider [phone]- [phone] Encounter Details Date Type Department Care Team (Late st Contact Info) Description 04/22/2021 Scanned Document INTERFACE DEFAULT [address] [place] [address] System, Provider Not In Social History Tobacco [...] Description 09/30/2024 8:30 PM EDT Procedure visit [facility] [address] [place] [address] [address] [place] [phone] 10/31/2024 1:00 PM EDT Telemedicine Cancer Center at [facility] [address] [facility] [address] [place] [address] Ronald Mills MD 240 [facility] [address] [place] [address] documented as of this encounter [...] documented as of this encounter Care Teams Epic Cadence Analyst Relationship Specialty Start Date End Date Caitlyn Bowie MD [address] [address] PCP - General Internal Medicine 05/06/21 documented as of this encounter
--- OUTSIDE RECORDS SUMMARY | 2024-09-11 13:07 | XMS_ITS | Encounter Summary ---
Author Organization [facility] Address [address] [place] [address] Care Team Providers Care Industrial Welder Name Role Phone Brennan Burnett MD Primary Care Provider [phone] Encounter Details Date Type Department Care Team (Late st Contact Info) Description 08/26/2024 10:30 AM EST Telemedicine [facility] [address] [facility] [address] [place] [phone] Ayanna Jaffe MD [address] [place] [phone] Anxiety (Primary Dx); Memory change; Gait abnormality; [...] which they are responsible for. Patients Location: [facility]: Jovana Malik is a 79 y.o. year [...] with sleep she restarted She saw her credit control clerk and will refer to sleep study she wants to go to [facility] 79 yo female with PMH Pulmonary HTN , She does have coronary disease but nothing high-grade and never had percutaneous coronary invention or heart surgery leg bypass. 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 The majority of the actual abxu-vm-xysy visit was spent counseling the patient with respect to the current neurological picture. Ayanna Jaffe MD 33 documented in this encounter Plan of Treatment Upcoming Encounters Date Type Department Care Team (Late st Contact Info) Description 10/09/2024 12:45 PM EDT Treatment [facility] Therapy [address] [place] [phone] Daphne Alarcon, SERVICE PROVIDER documented as of this encounter Goals Goal Patient Goal Type Associated Problems Recent Progress Patient-Stated? Author ST LTG General No Daphne Alarcon, SERVICE PROVIDER Note: Pt will improve cognitive linguistic function to participate and communicate in iADLs mod I ST STGs General No Daphne Alarcon, SERVICE PROVIDER Note: Pt will participate with development of [...] as of this encounter Care Teams Industrial Welder Relationship Specialty Start Date End Date Brennan Burnett MD [address] [place] [address] PCP - General 05/06/24 documented as of this encounter
--- OUTSIDE RECORDS SUMMARY | 2024-09-11 13:07 | XMS_ITS | Encounter Summary ---
Author Organization [facility] Address [address] [place] [address] Care Team Providers Care Supervisor Body Assembly Name Role Phone Cristofer Hope MD Primary Care Provider Victorino Read MD Primary Care Provider UnavailSharon Kimbrough Primary Care Provider Unava ilBrennan Newman MD Primary Care Provider Unavailab Hayden Montes MD Unavailable [phone] Pallavi Flood NP Unavailable [phone] Caitlyn Bowie MD Primary Care Provider Unava chhaya Encounter Details Date Type Department Care Team Description 11/15/2017 Transfer Records Medical Records [address] [place] [address] Abstract, Provider Social History Tobacco Use Types [...] filedocumented in this encounter Care Teams Supervisor Body Assembly Relationship Specialty Start Date End Date Cristofer Hope MD PCP - General Internal Medicine 05/16/17 12/20/17 Victorino Martin MD PCP - General Internal Medicine 12/21/17 08/01/18 Sharon Vides PCP - General Internal Medicine 08/02/18 05/26/20 Brennan Burnett MD PCP - General Internal Medicine 05/27/20 12/07/21 Caitlyn Bowie MD [address] [place] [address] PCP - General Internal Medicine 12/08/21 Hayden Shah MD [address] [place] [address] Specialist Cardiovascular Disease 09/01/20 Pallavi Flood NP [address] [place] [address] Cardiology 09/01/20 documented as of this encounter
--- OUTSIDE RECORDS SUMMARY | 2024-09-11 13:07 | XMS_ITS | Encounter Summary ---
Author Organization [facility] Address [address] [place] [address] Care Team Providers Care Waste Duster Name Role Phone Victorino Martin MD Primary Care Provider UnavailSharon Kimbrough Primary Care Provider Unava ilable Brennan Burnett MD Primary Care Provider Unavailab Hayden Montes MD Unavailable [phone] Pallavi Flood NP Unavailable [phone] Caitlyn Bowie MD Primary Care Provider Unava ilable Reason for Visit * Reason Onset Date Comments other 02/06/2018 Encounter Details Date Type Department Care Team Description 02/06/2018 Telephone Pulmonology - [address] [place] [address] Henry Kelly MD other Social [...] on filedocumented in this encounter Care Teams Waste Duster Relationship Specialty Start Date End Date Victorino Martin MD PCP - General Internal Medicine 12/21/17 08/01/18 Sharon Vides PCP - General Internal Medicine 08/02/18 05/26/20 Brennan Burnett MD PCP - General Internal Medicine 05/27/20 12/07/21 Caitlyn Bowie MD [address] [place] [address] PCP - General Internal Medicine 12/08/21 Hayden Shah MD [address] [place] [address] Specialist Cardiovascular Disease 09/01/20 Pallavi Flood NP [address] [place] [address] Cardiology 09/01/20 documented as of this encounter
--- OUTSIDE RECORDS SUMMARY | 2024-09-11 13:07 | XMS_ITS | Encounter Summary ---
Author Organization [facility] Address [address] [place] [address] Care Team Providers Care Fiber Optic Central Office Installer Name Role Phone Caitlyn Bowie MD Primary Care Provider [phone]- [phone] Encounter Details Date Type Department Care Team (Late st Contact Info) Description 08/21/2017 Scanned Document [facility] Health Information Management [address] [place] [address] External, Provider Social History Tobacco Use Types [...] Description 09/30/2024 8:30 PM EDT Procedure visit [facility] [address] [place] [address] [address] [place] [phone] 10/31/2024 1:00 PM EDT Telemedicine Cancer Center at [facility] [address] [facility] [address] [place], [place] [phone] Ronald Mills MD 240 [facility] [address] [place] [address] documented as of this encounter [...] documented as of this encounter Care Teams Fiber Optic Central Office Installer Relationship Specialty Start Date End Date Caitlyn Bowie MD 3400 [facility] 1 [place] [address] PCP - General Internal Medicine 05/06/21 Henry Kelly MD Pulmonary Department 175 [facility], [address] [place] [address] Physician Pulmonary Disease 09/06/17 06/22/20 documented as of this encounter
--- OUTSIDE RECORDS SUMMARY | 2024-09-11 13:07 | XMS_ITS | Encounter Summary ---
Author Organization [facility] Address [address] [place] [address] Care Team Providers Care Foam Rubber Curer Name Role Phone Victorino Martin MD Primary Care Provider Sharon Odonnell Primary Care Provider Brennan Castro MD Primary Care Provider UnavailHayden Fernandez MD Unavailable [phone] Pallavi Flood NP Unavailable [phone] Caitlyn Bowie MD Primary Care Provider Johnathon shaver Encounter Details Date Type Department Care Team Description 01/22/2018 Mask Former Report Medical Records [address] [place] [address] Abstract, Provider Social History Tobacco Use Types [...] on filedocumented in this encounter Care Teams Foam Rubber Curer Relationship Specialty Start Date End Date Victorino Martin MD PCP - General Internal Medicine 12/21/17 08/01/18 Sharon Vides PCP - General Internal Medicine 08/02/18 05/26/20 Brennan Burnett MD PCP - General Internal Medicine 05/27/20 12/07/21 Caitlyn Bowie MD [address] [place] [address] PCP - General Internal Medicine 12/08/21 Hayden Shah MD [address] [place] [phone] Specialist Cardiovascular Disease 09/01/20 Pallavi Flood NP [address] [place], [place] [phone] Cardiology 09/01/20 documented as of this encounter
--- OUTSIDE RECORDS SUMMARY | 2024-09-11 13:07 | XMS_ITS | Encounter Summary ---
Author Organization [facility] Address [address] [place] [address] Care Team Providers Care Engineering Technical Specialist Name Role Phone Caitlyn Bowie MD Primary Care Provider [phone]- [phone] Encounter Details Date Type Department Care Team (Late st Contact Info) Description 04/11/2021 Scanned Document [facility] Health Information Management [address] [place] [address] External, Provider Social History Tobacco Use Types [...] Description 09/30/2024 8:30 PM EDT Procedure visit [facility] [address] [place] [address] [address] [place] [phone] 10/31/2024 1:00 PM EDT Telemedicine [facility] at [facility] [address] [facility] [address] [place] [address] Ronald Mills MD 240 [facility] [address] [place] [address] documented as of this encounter Visit Diagnoses Not on filedocumented in this encounter Additional Health Concerns Infection Onset Date Last Indicated Resolved Time COVID-19 03/05/2022 03/05/2022 03/15/2022 7:18 PM EDT Assessment Noted Time PHQ-9 Depression Total Score: 2 11/07/19 19 2:06 PM EDT documented as of this encounter Care Teams Engineering Technical Specialist Relationship Specialty Start Date End Date Caitlyn Bowie MD [address] [address] PCP - General Internal Medicine 05/06/21 documented as of this encounter
--- OUTSIDE RECORDS SUMMARY | 2024-09-11 13:07 | XMS_ITS | Encounter Summary ---
Author Organization [facility] Address [address] [place] [address] Care Team Providers Care Bottling Room Worker Name Role Phone Victorino Martin MD Primary Care Provider UnavailSharon Kimbrough Primary Care Provider Unava ilable Brennan Burnett MD Primary Care Provider Unavailab Hayden Montes MD Unavailable Pallavi Flood NP Unavailable [phone] Caitlyn Bowie MD Primary Care Provider Unava chhaya Reason for Visit * Reason Comments E-prescribe Rx Request Encounter Details Date Type Department Care Team Description 04/26/2018 Refill Pulmonology [address] [place] [address] Henry Kelly MD E-prescribe Rx [...] NO Patients current insurance carrier is: Payor: MED[place]ARE-[place] / [place] / Product Type: MEDICARE [id number] documented in this encounter Plan of Treatment Not on file documented as of this encounter Visit Diagnoses Not on filedocumented in this encounter Care Teams Bottling Room Worker Relationship Specialty Start Date End Date Victorino Martin MD PCP - General Internal Medicine 12/21/17 08/01/18 Sharon Vides PCP - General Internal Medicine 08/02/18 05/26/20 Brennan Burnett MD PCP - General Internal Medicine 05/27/20 12/07/21 Caitlyn Bowie MD [address] [place] [address] PCP - General Internal Medicine 12/08/21 Hayden Shah MD [address] [place] [phone] Specialist Cardiovascular Disease 09/01/20 Pallavi Flood NP [address] [place] [address] Cardiology 09/01/20 documented as of this encounter
--- OUTSIDE RECORDS SUMMARY | 2024-09-11 13:07 | XMS_ITS | Encounter Summary ---
Author Organization [facility] Address [address] [place] [address] Care Team Providers Care Chopper Gun Operator Name Role Phone Caitlyn Bowie MD Primary Care Provider [phone]- [phone] Encounter Details Date Type Department Care Team (Late st Contact Info) Description 08/09/2017 Scanned Document Cardiovascular Medicine at [address] [address] System, Provider Not In Social History Tobacco [...] Description 09/30/2024 8:30 PM EDT Procedure visit [facility] [address] [place] [address] [address] [place] [phone] 10/31/2024 1:00 PM EDT Telemedicine Cancer Center at [address] [place], [place] [phone] Ronald Mills MD [address] [place] [address] [address] [place] [address] documented as of this encounter [...] documented as of this encounter Care Teams Chopper Gun Operator Relationship Specialty Start Date End Date Caitlyn Bowie MD 3400 [facility] 1 [place] [address] PCP - General Internal Medicine 05/06/21 Henry Kelly MD Pulmonary Department 175 [facility], [address] [place] [address] Physician Pulmonary Disease 09/06/17 06/22/20 documented as of this encounter
--- OUTSIDE RECORDS SUMMARY | 2024-09-11 13:08 | XMS_ITS | Encounter Summary ---
Author Organization [facility] Address [address] [place] [address] Care Team Providers Care Grades 9 Thru 12 Visiting Teacher Name Role Phone Brennan Burnett MD Primary Care Provider Unavailab Hayden Montes MD Unavailable [phone] Pallavi Flood NP Unavailable [phone] Caitlyn Bowie MD Primary Care Provider Unava ilable Encounter Details Date Type Department Care Team Description 09/28/2020 SCAN Medical Records [address] [place] [address] Christo Hogan Social History Tobacco Use Types [...] in this encounter Care Teams Grades 9 Thru 12 Visiting Teacher Relationship Specialty Start Date End Date Brennan Burnett MD PCP - General Internal Medicine 05/27/20 12/07/21 Caitlyn Bowie MD [address] [place] [address] PCP - General Internal Medicine 12/08/21 Hayden Shah MD [address] [place] [address] Specialist Cardiovascular Disease 09/01/20 Pallavi Flood NP [address] [place] [address] Cardiology 09/01/20 documented as of this encounter
--- OUTSIDE RECORDS SUMMARY | 2024-09-11 13:08 | XMS_ITS | Clinical Summary ---
Author Organization [facility] Address [address] [place] [address] Phone Care Team Providers Care Certified Medical Assistant Name Role Phone Brennan Burnett Primary Care Provider [phone] Allergies Active Allergy Reactions Criticality Noted Date [...] 20 mg as needed by her previous clay modeler which she has taken sporadically. I have asked her to take this daily to see if this improves her symptoms and she has a follow-up appointment with Dr. Shah on September 16 which she will keep. We also had a long conversation regarding the fact that she is seeing 3 different clay modeler for the same problems. We informed her [...] continues to see Dr. Avalos or her clay modeler at [facility]. She verbalized understanding of this and [...] Team Description 08/26/2024 10:30 AM EST Telemedicine [facility] [address] [place] [phone] Ayanna Jaffe MD Anxiety (Primary Dx); Memory change; Gait abnormality; White matter lesion of central nervous system 08/23/2024 1:20 PM EST Office Visit Gastroenterology - [address] [phone] Saima Amor, LONG TERM Gastroesophageal reflux disease, unspecified whether esophagitis present (Primary Dx); Constipation, unspecified constipation type 08/19/2024 Telephone [facility] Speech Therapy [address] [place] [phone] Daphne Alarcon, SHAKE TABLE OPERATOR returning pt call 08/08/2024 Telephone [facility] Speech Therapy [address] [phone] Daphne Alarcon, SHAKE TABLE OPERATOR Memory Loss (Returned pt call from 08/07 about recent missed visit. Pt is not interested in in person f/u right now due to cold weather and other medical issues. She will f/u with medical team if she wants to address cognitive status in future) 07/04/2024 Telephone Gastroenterology - [address] [phone] Tim Gomes MD 07/01/2024 Telephone Gastroenterology - [address] [address] Tim Gomes MD 06/20/2024 9:30 AM EST Evaluation [facility] Speech Therapy [address] [place] [phone] Daphne Alarcon, SHAKE TABLE OPERATOR Cognitive communication disorder (Primary Dx); White matter lesion of central nervous system; Unsp symptoms and signs w cognitive functions and awareness; Gait abnormality 06/20/2024 Plan of Care Documentation [facility] Speech Therapy [address] [address] 06/15/2024 11:51 AM EST - 06/15/2024 4:05 PM EST Emergency [facility] [address] [place] [address] Jovana Cruz MD Pain (Primary [...] PROCEDURE: HISTORICAL TONSILLECTOMY OTHER SURGICAL HISTORY PROCEDURE: KS RMVL LUNG XCP TOT PNEUMONECTOMY SLEEVE LOBECTOMY; [...] pathology report UPPER GASTROINTESTINAL ENDOSCOPY 05/03/2015 PROCEDURE: KS UPPER GI ENDOSCOPY PERFORMED MITRAL CLIP PROCEDURE Medical History Medical History Date Comments Akathisia 04/15/2013 DX:Akathisia Anxiety 12/07/2016 DX:Anxiety Bronchiectasis ([facility]) 08/08/2017 DX:Bron chiectasis ([facility]) Cataract 08/26/2014 DX:Cataract Chronic obstructive pulmonar y disease ([facility]) 04/13/2017 DX:Chronic obstructive pulmo nary disease ([facility]) 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 DX:Complica cole migraine Congestive heart failure ([facility]) 04/04/2017 DX:Congestive heart failure (HCC) History of [...] Mx LLL resection, Chemo, RT, Cisplatin, Vinorelbine [phone] 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 DX:Antiphospholipid [...] Info) Description 10/09/2024 12:45 PM EDT Treatment [facility] Speech Therapy [address] [address] Daphne Alarcon, SHAKE TABLE OPERATOR Health Maintenance Due Date Last Done Comments [...] Author [facility] No Daphne Alarcon, SHAKE TABLE OPERATOR Note: Pt will improve cognitive linguistic function to participate and communicate in iADLs mod I [facility] General No Daphne Alarcon, SHAKE TABLE OPERATOR Note: Pt will participate with development [...] LAB HEMETOLOGY METHOD 06/15/2024 1:39 PM EST [facility] RBC 3.70(L) 3.80 - 4.80 M/mcL LAB HEMETOLOGY METHOD 06/15/2024 1:39 PM EST [facility] Hemoglobin 12.0 11.5 - 16.0 g/dL LAB HEMETOLOGY METHOD 06/15/2024 1:[address] [facility] Hematocrit 37.5 35.0 - 47.0 % LAB HEMETOLOGY METHOD 06/15/2024 1:[address] [facility] MCV 100.3(H) 79.0 - 98.0 FL LAB HEMETOLOGY METHOD 06/15/2024 1:[address] [facility] MCH 32.1(H) 27.0 - 32.0 pcg LAB HEMETOLOGY METHOD 06/15/2024 1:[address] [facility] MCHC 32.0 32.0 - 37.0 g/dL LAB HEMETOLOGY METHOD 06/15/2024 1:[address] [facility] RDW 14.3 11.0 - 15.0 % LAB HEMETOLOGY METHOD 06/15/2024 1:[address] [facility] Platelets 201 130 - 400 K/mcL LAB HEMETOLOGY METHOD 06/15/2024 1:[address] [facility] MPV 11.1(H) 7.0 - 11.0 FL LAB HEMETOLOGY METHOD 06/15/2024 1:[address] [facility] NRBC 0.0 <1.0 % LAB HEMETOLOGY METHOD 06/15/2024 1:[address] [facility] NRBC Absolute 0.00 <0.10 K/mcL LAB HEMETOLOGY METHOD 06/15/2024 1:[address] [facility] Neutrophils Relative 85.5 % LAB HEMETOLOGY METHOD 06/15/2024 1:[address] [facility] Lymphocytes Relative 4.8 % LAB HEMETOLOGY METHOD 06/15/2024 1:[address] [facility] Monocytes Relative 7.4 % LAB HEMETOLOGY METHOD 06/15/2024 1:[address] [facility] Eosinophils Relative 1.1 % LAB HEMETOLOGY METHOD 06/15/2024 1:39 PM EST [facility] Basophils Relative 0.4 % LAB HEMETOLOGY METHOD 06/15/2024 1:39 PM EST [facility] Immature Granulocytes Relative 0.8 % LAB HEMETOLOGY METHOD 06/15/2024 1:[address] [facility] Neutrophils Absolute 11.28(H) 1.50 - 7.00 K/mcL LAB HEMETOLOGY METHOD 06/15/2024 1:39 PM EST [facility] Lymphocytes Absolute 0.63(L) 1.00 - 5.00 K/mcL LAB HEMETOLOGY METHOD 06/15/2024 1:39 PM EST [facility] Monocytes Absolute 0.98 0.20 - 1.00 K/mcL LAB HEMETOLOGY METHOD 06/15/2024 1:[address] [facility] Eosinophils Absolute 0.14 0.00 - 0.50 K/mcL LAB HEMETOLOGY METHOD 06/15/2024 1:39 PM EST [facility] Basophils Absolute 0.05 0.00 - 0.20 K/mcL LAB HEMETOLOGY METHOD 06/15/2024 1:39 PM EST [facility] Immature Granulocytes Absolute 0.11(H) 0.00 - 0.03 K/mcL LAB HEMETOLOGY METHOD 06/15/2024 1:[address] [facility] Blood Venous blood specimen / Unknown Venipuncture / Unknown 06/15/2024 1:26 PM EST 06/15/2024 1:31 PM EST us Jovana Cruz MD LAB BLOOD ORDERABLES Final Resul t [facility] [address] [place] [address], * (ABNORMAL) Protime-INR (06/15/2024 1:26 PM EST) Protime 22.9(H) 10.6 - 13.9 sec LAB COAGULATION METHOD 06/15/2024 1:43 PM EST [facility] INR 1.8 LAB COAGULATION METHOD 06/15/2024 1:[address] [facility] Blood Venous blood specimen / Unknown Venipuncture / Unknown 06/15/2024 1:26 PM EST 06/15/2024 1:31 PM EST us Jovana Cruz MD LAB BLOOD ORDERABLES Final Resul t [facility] [address] [place] [address], * (ABNORMAL) Comprehensive metabolic panel (06/15/2024 1:26 PM EST) [facility] Sodium 140 133 - 145 mmol/L LAB CHEMISTRY METHOD 06/15/2024 2:[address] [facility] Potassium 4.7 3.5 - 5.5 mmol/L LAB CHEMISTRY METHOD 06/15/2024 2:[address] [facility] Chloride 102 96 - 110 mmol/L LAB CHEMISTRY METHOD 06/15/2024 2:[address] [facility] CO2 34(H) 21 - 32 mmol/L LAB CHEMISTRY METHOD 06/15/2024 2:[address] [facility] Anion Gap 4 3 - 11 LAB CHEMISTRY METHOD 06/15/2024 2:[address] [facility] Glucose 95 70 - 100 mg/dL LAB CHEMISTRY METHOD 06/15/2024 2:[address] [facility] BUN 29(H) 5 - 25 mg/dL LAB CHEMISTRY METHOD 06/15/2024 2:[address] [facility] Creatinine 0.95 0.50 - 1.10 mg/dL LAB CHEMISTRY METHOD 06/15/2024 2:10 PM EST [facility] eGFR 60 >=60 mL/min/1. 73m2 LAB CHEMISTRY METHOD 06/15/2024 2:10 PM EST [facility] Comment:Calculation based on the??Chronic Kidney Disease Epidemiology Collaboration (CKD-EPI) equation refit??without adjustment for race. BUN/Creatinine Ratio 30.5 LAB CHEMISTRY METHOD 06/15/2024 2:[address] [facility] Calcium 10.1 8.5 - 10.5 mg/dL LAB CHEMISTRY METHOD 06/15/2024 2:[address] [facility] AST (SGOT) 35 10 - 42 unit/L LAB CHEMISTRY METHOD 06/15/2024 2:[address] [facility] ALT (SGPT) 39 10 - 60 unit/L LAB CHEMISTRY METHOD 06/15/2024 2:[address] [facility] Alkaline Phosphatase 83 42 - 121 unit/L LAB CHEMISTRY METHOD 06/15/2024 2:[address] [facility] Total Protein 6.4 6.0 - 8.0 g/dL LAB CHEMISTRY METHOD 06/15/2024 2:[address] [facility] Albumin 3.3 3.2 - 5.0 g/dL LAB CHEMISTRY METHOD 06/15/2024 2:[address] [facility] Total Bilirubin 0.4 0.0 - 1.4 mg/dL LAB CHEMISTRY METHOD 06/15/2024 2:10 PM EST [facility] Blood Venous blood specimen / Unknown Venipuncture / Unknown 06/15/2024 1:26 PM EST 06/15/2024 1:32 PM EST us Jovana Cruz MD LAB BLOOD ORDERABLES Final Resul t [facility] [address] [place] [address], [place] [phone] * Vascular US Duplex Lower Extremity Venous Left (06/15/2024 12:24 PM EST) Anatomical Region Laterality Modality Vascular, Abdomen Ultrasound 06/15/2024 12:2 0 PM EST Impressions 06/15/2024 12:20 PM EST Impression: No evidence of deep vein thrombosis in the left femoral-popliteal venous segment. [id number] -------- FINAL REPORT -------- Dictated By: Fawn Levin Dictated Date: 06/15/2024 12:20 ET Assigned Physician: Fawn Levin Reviewed and Electronically Signed By: Fawn Levin Signed Date: 06/15/2024 12:20 ET Workstation ID: [id number] Transcribed By: Self Edit Transcribed Date: 06/15/2024 [...] vein thrombosis in the leftfemoral-popliteal venous segment. [id number] -------- FINAL REPORT -------- Dictated By: Fawn Levin Dictated Date: 06/15/2024 12:20 ET Assigned Physician: Fawn Levin Reviewed and Electronically Signed By: Fawn Levin Signed Date: 06/15/2024 12:20 ET Workstation ID: [id number] Transcribed By: Self Edit Transcribed Date: 06/15/2024 12:20 ET us Henry Carrillo DO CV VASCULAR PROCEDURES Final R esult from Last 3 Months Insurance MEDICARE [facility] Advance Directives Documents on File Type Date Recorded Patient Ip Litigation Associate Expl anation Health Care Decision (hx) 10/18/2013 [...] (hx) 10/04/2013 AD LACEY DIRECTIVE Care Teams Certified Medical Assistant Relationship Specialty Start Date End Date Brennan Burnett MD [address] [place] [address] PCP - General 05/06/24
--- OUTSIDE RECORDS SUMMARY | 2024-09-11 13:08 | XMS_ITS | Encounter Summary ---
Author Organization [facility] Address [address] [place] [address] Care Team Providers Care Unarmed Security Guard Name Role Phone Brennan Burnett MD Primary Care Provider Unavailab Hayden Montes MD Unavailable [phone] Pallavi Flood NP Unavailable [phone] Caitlyn Bowie MD Primary Care Provider Unava ilable Encounter Details Date Type Department Care Team Description 06/02/2020 Bench Examiner Report Medical Records [address] [place] [id number] Abstract, Provider Social History Tobacco Use Types [...] on filedocumented in this encounter Care Teams Unarmed Security Guard Relationship Specialty Start Date End Date Brennan Burnett MD PCP - General Internal Medicine 05/27/20 12/07/21 Caitlyn Bowie MD [address] [place] [address] PCP - General Internal Medicine 12/08/21 Hayden Shah MD [address] [place] [address] Specialist Cardiovascular Disease 09/01/20 Pallavi Flood NP [address] [place] [phone] Cardiology 09/01/20 documented as of this encounter
--- OUTSIDE RECORDS SUMMARY | 2024-09-11 13:08 | XMS_ITS | Encounter Summary ---
Author Organization [facility] and [facility] Address [address] [place] [address] Care Team Providers Care Newspaper Illustrator Name Role Phone Caitlyn Bowie MD Primary Care Provider [phone] Encounter Details Date Type Department Care Team (Late st Contact Info) Description 02/11/2021 Scanned Document INTERFACE DEFAULT [address] [place] [id number] System, Provider Not In Social History Tobacco [...] Description 09/30/2024 8:30 PM EDT Procedure visit [facility] [address] [place] [address] [address] [place] [phone] 10/31/2024 1:00 PM EDT Telemedicine [facility] at [facility] [address] [facility] [address] [place] [address] Ronald Mills MD 240 [facility] [address] [place] [address] documented as of this encounter [...] as of this encounter Care Teams Newspaper Illustrator Relationship Specialty Start Date End Date Caitlyn Bowie MD [address] [phone] PCP - General Internal Medicine 05/06/21 documented as of this encounter
--- OUTSIDE RECORDS SUMMARY | 2024-09-11 13:08 | XMS_ITS | Encounter Summary ---
Author Organization [facility] Address [address] [place] [address] Care Team Providers Care Distribution Center Manager Name Role Phone Caitlyn Bowie MD Primary Care Provider [phone]- [phone] Encounter Details Date Type Department Care Team (Late st Contact Info) Description 03/14/2021 Scanned Document INTERFACE DEFAULT [address] [place] [address] System, Provider Not In Social History Tobacco [...] Description 09/30/2024 8:30 PM EDT Procedure visit [facility] [address] [place] [address] [address] [place] [phone] 10/31/2024 1:00 PM EDT Telemedicine [facility] [address] [facility] [address] [place] [address] Ronald Mills MD 240 [facility] [address] [place] [address] documented as of this encounter [...] as of this encounter Care Teams Distribution Center Manager Relationship Specialty Start Date End Date Caitlyn Bowie MD [address] [phone] PCP - General Internal Medicine 05/06/21 documented as of this encounter
--- OUTSIDE RECORDS SUMMARY | 2024-09-11 13:08 | XMS_ITS | Encounter Summary ---
Author Organization [facility] Address [address] [place] [address] Care Team Providers Care Paraplanner Name Role Phone Caitlyn Bowie MD Primary Care Provider [phone]- [phone] Encounter Details Date Type Department Care Team (Late st Contact Info) Description 02/25/2021 Scanned Document INTERFACE DEFAULT [address] [place] [address] System, Provider Not In Social History Tobacco [...] Description 09/30/2024 8:30 PM EDT Procedure visit [facility] [address] [place] [address] [address] [place] [phone] 10/31/2024 1:00 PM EDT Telemedicine [facility] at [facility] [address] [facility] [address] [place] [address] Ronald Mills MD 240 [facility] [address] [place] [address] documented as of [...] documented as of this encounter Care Teams Paraplanner Relationship Specialty Start Date End Date Caitlyn Bowie MD [address] [place] [phone] PCP - General Internal Medicine 05/06/21 documented as of this encounter
--- OUTSIDE RECORDS SUMMARY | 2024-09-11 13:08 | XMS_ITS | Encounter Summary ---
Author Organization [facility] Address [address] [place] [address] Care Team Providers Care Compliance Reviewer Name Role Phone Caitlyn Bowie MD Primary Care Provider [phone]- [phone] Encounter Details Date Type Department Care Team (Late st Contact Info) Description 01/27/2021 Scanned Document Cancer Center at [address] [address] External, Provider Social History Tobacco Use Types [...] Description 09/30/2024 8:30 PM EDT Procedure visit [facility] [address] [place] [address] [place] [address] 10/31/2024 1:00 PM EDT Telemedicine Cancer Center at [address] [place], [place] [phone] Ronald Mills MD [address] [address] documented as of this encounter [...] documented as of this encounter Care Teams Compliance Reviewer Relationship Specialty Start Date End Date Caitlyn Bowie MD [address] [address] PCP - General Internal Medicine 05/06/21 documented as of this encounter
--- OUTSIDE RECORDS SUMMARY | 2024-09-11 13:08 | XMS_ITS | Encounter Summary ---
Author Organization [facility] Address [address] [place] [address] Care Team Providers Care Systems Operator Name Role Phone Caitlyn Bowie MD Primary Care Provider [phone]- [phone] Encounter Details Date Type Department Care Team (Late Contact Info) Description 02/02/2021 Scanned Document [facility] Health Information Management [address] [place] [address] External, Provider Social History Tobacco Use Types [...] Description 09/30/2024 8:30 PM EDT Procedure visit [facility] [address] [place] [address] [address] [place] [address] 10/31/2024 1:00 PM EDT Telemedicine [facility] at [facility] 240 [facility] [address] [place] [address] Ronald Mills MD 240 [facility] [address] [place] [address] documented as of this encounter Visit Diagnoses Not on filedocumented in this encounter Additional Health Concerns Infection Onset Date Last Indicated Resolved Time COVID-19 03/05/2022 03/05/2022 03/15/2022 7:18 PM EDT Assessment Noted Time PHQ-9 Depression Total Score: 2 11/07/19 19 2:06 PM EDT documented as of this encounter Care Teams Systems Operator Relationship Specialty Start Date End Date Caitlyn Bowie MD [address] [address] PCP - General Internal Medicine 05/06/21 documented as of this encounter
--- OUTSIDE RECORDS SUMMARY | 2024-09-11 13:08 | XMS_ITS | Encounter Summary ---
Author Organization [facility] Address [address] [place] [address] Care Team Providers Care Floor Manager Name Role Phone Caitlyn Bowie MD Primary Care Provider +1- [phone] Encounter Details Date Type Department Care Team (Late st Contact Info) Description 02/07/2021 Scanned Document INTERFACE DEFAULT [address] [place] [address] System, Provider Not In Social History Tobacco [...] Description 09/30/2024 8:30 PM EDT Procedure visit [facility] [address] [place] [address] [address] [place] [address] 10/31/2024 1:00 PM EDT Telemedicine [facility] 240 [facility] [address] [place] [address] Ronald Mills MD 240 [facility] [address] [place] [phone] documented as of this encounter Procedures Procedure [...] documented as of this encounter Care Teams Floor Manager Relationship Specialty Start Date End Date Caitlyn Bowie MD [facility] [address] [address] PCP - General Internal Medicine 05/06/21 documented as of this encounter
--- OUTSIDE RECORDS SUMMARY | 2024-09-11 13:08 | XMS_ITS | Encounter Summary ---
Author Organization [facility] Address [address] [place] [address] Care Team Providers Care Snuff Container Inspector Name Role Phone Caitlyn Bowie MD Primary Care Provider +1- [phone] Encounter Details Date Type Department Care Team (Late Contact Info) Description 02/03/2021 Scanned Document [facility] Health Information Management [address] [place] [address] External, Provider Social History Tobacco Use Types [...] Description 09/30/2024 8:30 PM EDT Procedure visit [facility] [address] [place] [address] [address] [place] [address] 10/31/2024 1:00 PM EDT Telemedicine [facility] at [facility] 240 [facility] [address] [place] [address] Ronald Mills MD 240 [facility] [address] [place] [address] documented as of this encounter [...] documented as of this encounter Care Teams Snuff Container Inspector Relationship Specialty Start Date End Date Caitlyn Bowie MD [address] [address] PCP - General Internal Medicine 05/06/21 documented as of this encounter
--- OUTSIDE RECORDS SUMMARY | 2024-09-11 13:08 | XMS_ITS | Clinical Summary ---
Author Organization [facility] Address [address] [place] [address] Care Team Providers Care Ela Teacher Name Role Phone Hayden Shah MD Unavailable [phone] Pallavi Flood NP Unavailable [phone] Caitlyn Bowie MD Primary Care Provider Unava [...] 20 mg as needed by her previous pharmacology professor which she has taken sporadically. I have asked her to take this daily to see if this improves her symptoms and she has a follow-up appointment with Dr. Shah on September 16 which she will keep. We also had a long conversation regarding the fact that she is seeing 3 different pharmacology professor for the same problems. We informed her [...] continues to see Dr. Avalos or her pharmacology professor at [facility]. She verbalized understanding of this and [...] Mx LLL resection, Chemo, RT, Cisplatin, Vinorelbine [phone] Obstructive sleep apnea syndrome 017 Overview: CPAP [...] 09/17/2015, 04/21/2014, Additional history exists Care Teams Ela Teacher Relationship Specialty Start Date End Date Caitlyn Bowie MD [address] [place] [address] PCP - General Internal Medicine 12/08/21 Hayden Shah MD [address] [place] [address] Specialist Cardiovascular Disease 09/01/20 Pallavi Flood NP [address] [place] [address] [phone] Cardiology 09/01/20
--- OUTSIDE RECORDS SUMMARY | 2024-09-11 13:08 | XMS_ITS | Encounter Summary ---
Author Organization [facility] Address [address] [place] [address] Care Team Providers Care Retail Team Leader Name Role Phone Caitlyn Bowie MD Primary Care Provider [phone]- [phone] Encounter Details Date Type Department Care Team (Late st Contact Info) Description 10/16/[address] [facility] [address] [facility], 2nd floor [facility], [address] [place], [place] [address] Suzy Kong MD [address] [place] [phone] Social History Tobacco Use Types Packs/Day [...] Description 09/30/2024 8:30 PM EDT Procedure visit [facility] [address] [place] [address] [address] [place] [address] 10/31/2024 1:00 PM EDT Telemedicine Cancer Center at [address] [place], [place] [address] Ronald Mills MD 240 [facility] [address] [place] [address] documented as of this encounter Visit Diagnoses Not on filedocumented in this encounter Additional Health Concerns Infection Onset Date Last Indicated Resolved Time COVID-19 03/05/2022 03/05/2022 03/15/2022 7:18 PM EDT documented as of this encounter Care Teams Retail Team Leader Relationship Specialty Start Date End Date Caitlyn Bowie MD 3400 [facility] 1 [place] [address] PCP - General Internal Medicine 05/06/21 Henry Kelly MD Pulmonary Department [address] [place] [address], [address] [place] [address] Physician Pulmonary Disease 09/06/17 06/22/20 documented as of this encounter
--- OUTSIDE RECORDS SUMMARY | 2024-09-11 13:08 | XMS_ITS | Encounter Summary ---
Author Organization [facility] and [facility] Address [address] [place] [address] Care Team Providers Care Domestic Freight Forwarder Name Role Phone Caitlyn Bowie MD Primary Care Provider +1- [phone] Encounter Details Date Type Department Care Team (Late st Contact Info) Description 11/29/2017 Scanned Document [facility] Health Information Management [address] [place] [address] External, Provider Social History Tobacco Use Types [...] EDT Procedure visit [facility] [address] [place] [address] [address] [place] [address] 10/31/2024 1:00 PM EDT [facility] 240 [facility] Building [address] [place], [place] [address] Ronald Mills MD 240 [facility] A1 [place] [address] documented as of this encounter [...] as of this encounter Care Teams Domestic Freight Forwarder Relationship Specialty Start Date End Date Caitlyn Bowie MD 3400 [facility] 1 [place] [address] PCP - General Internal Medicine 05/06/21 Henry Kelly MD Pulmonary Department 175 [facility], [address] [place] [address] Physician Pulmonary Disease 09/06/17 06/22/20 documented as of this encounter
--- OUTSIDE RECORDS SUMMARY | 2024-09-11 13:08 | XMS_ITS | Encounter Summary ---
Author Organization [facility] Address [address] [place] [address] Care Team Providers Care Hand Riveter Name Role Phone Caitlyn Bowie MD Primary Care Provider +1- [phone] Encounter Details Date Type Department Care Team (Late st Contact Info) Description 08/23/2017 Scanned Document [facility] Health Information Management [address] [place] [address] External, Provider Social History Tobacco Use Types [...] EDT Procedure visit [facility] [address] [place] [address] [address] [place] [address] 10/31/2024 1:00 PM EDT [facility] 240 [facility] Building [address] [place], [place] [phone] Ronald Mills MD 240 [facility] A1 [place] [address] documented as [...] as of this encounter Care Teams Hand Riveter Relationship Specialty Start Date End Date Caitlyn Bowie MD 3400 [facility] 1 [place] [address] PCP - General Internal Medicine 05/06/21 Henry Kelly MD Pulmonary Department 175 [facility], [address] [place] [address] Physician Pulmonary Disease 09/06/17 06/22/20 documented as of this encounter
--- OUTSIDE RECORDS SUMMARY | 2024-09-11 13:08 | XMS_ITS | Encounter Summary ---
Author Organization [facility] and [facility] Address [address] [place] [address] Care Team Providers Care Mortgage Closer Name Role Phone Caitlyn Bowie MD Primary Care Provider +1- [phone] Encounter Details Date Type Department Care Team (Late st Contact Info) Description 03/22/2021 Scanned Document INTERFACE DEFAULT [address] [place] [address] System, Provider Not In Social History Tobacco [...] Description 09/30/2024 8:30 PM EDT Procedure visit [facility] [address] [place] [address] [address] [place] [address] 10/31/2024 1:00 PM EDT [facility] 240 [facility] Building [address] [place] [address] Ronald Mills MD 240 [facility] A1 [place] [address] documented as of this encounter Visit Diagnoses Not on filedocumented in this encounter Additional Health Concerns Infection Onset Date Last Indicated Resolved Time COVID-19 03/05/2022 03/05/2022 03/15/2022 7:18 PM EDT Assessment Noted Time PHQ-9 Depression Total Score: 2 11/07/19 19 2:06 PM EDT documented as of this encounter Care Teams Mortgage Closer Relationship Specialty Start Date End Date Caitlyn Bowie MD [address] [address] PCP - General Internal Medicine 05/06/21 documented as of this encounter
--- OUTSIDE RECORDS SUMMARY | 2024-09-11 13:08 | XMS_ITS | Encounter Summary ---
Author Organization [facility] Address [address] [place] [address] Care Team Providers Care Corsetier Name Role Phone Caitlyn Bowie MD Primary Care Provider +1- [phone] Encounter Details Date Type Department Care Team (Late st Contact Info) Description 02/02/2021 Scanned Document INTERFACE DEFAULT [address] [place] [address] System, Provider Not In Social History Tobacco [...] Description 09/30/2024 8:30 PM EDT Procedure visit [facility] [address] [place] [address] [address] [place] [address] 10/31/2024 1:00 PM EDT [facility] 240 [facility] [address] [place] [address] Ronald Mills MD 240 [facility] A1 [place] [address] documented as of this encounter Procedures Procedure [...] documented as of this encounter Care Teams Corsetier Relationship Specialty Start Date End Date Caitlyn Bowie MD [address] [address] PCP - General Internal Medicine 05/06/21 documented as of this encounter
--- OUTSIDE RECORDS SUMMARY | 2024-09-11 13:08 | XMS_ITS | Encounter Summary ---
Author Organization [facility] Address [address] [place] [address] Care Team Providers Care Box Machine Operator Name Role Phone Caitlyn Bowie MD Primary Care Provider +1- [phone] Encounter Details Date Type Department Care Team (Late st Contact Info) Description 02/08/2021 Scanned Document INTERFACE DEFAULT [address] [place] [address] System, Provider Not In Social History Tobacco [...] Description 09/30/2024 8:30 PM EDT Procedure visit [facility] [address] [place] [address] [address] [place] [address] 10/31/2024 1:00 PM EDT [facility] 240 [facility] [address] [place] [address] Ronald Mills MD 240 [facility] A1 [place] [address] documented as of this encounter Visit Diagnoses Not on filedocumented in this encounter Additional Health Concerns Infection Onset Date Last Indicated Resolved Time COVID-19 03/05/2022 03/05/2022 03/15/2022 7:18 PM EDT Assessment Noted Time PHQ-9 Depression Total Score: 2 11/07/19 19 2:06 PM EDT documented as of this encounter Care Teams Box Machine Operator Relationship Specialty Start Date End Date Caitlyn Bowie MD [address] [address] PCP - General Internal Medicine 05/06/21 documented as of this encounter
--- OUTSIDE RECORDS SUMMARY | 2024-09-11 13:08 | XMS_ITS | Encounter Summary ---
Author Organization [facility] Address [address] [place] [address] Care Team Providers Care Aviation Consultant Name Role Phone Caitlyn Bowie MD Primary Care Provider +1- [phone] Encounter Details Date Type Department Care Team (Late st Contact Info) Description 02/03/2021 Scanned Document INTERFACE DEFAULT [address] [place] [address] System, Provider Not In Social History Tobacco [...] Description 09/30/2024 8:30 PM EDT Procedure visit [facility] [address] [place] [address] [address] [place] [address] 10/31/2024 1:00 PM EDT [facility] 240 [facility] [address] [place] [address] Ronald Mills MD 240 [facility] A1 [place] [address] documented as of this encounter [...] documented as of this encounter Care Teams Aviation Consultant Relationship Specialty Start Date End Date Caitlyn Bowie MD [address] [address] PCP - General Internal Medicine 05/06/21 documented as of this encounter
--- OUTSIDE RECORDS SUMMARY | 2024-09-11 13:08 | XMS_ITS | Encounter Summary ---
Author Organization [facility] Address [address] [place] [address] Care Team Providers Care Home And Family Living Professor Name Role Phone Caitlyn Bowie MD Primary Care Provider +1- [phone] Encounter Details Date Type Department Care Team (Late st Contact Info) Description 03/16/2021 Scanned Document INTERFACE DEFAULT [address] [place] [address] System, Provider Not In Social History Tobacco [...] Description 09/30/2024 8:30 PM EDT Procedure visit [facility] [address] [place] [address] [address] [place] [address] 10/31/2024 1:00 PM EDT [facility] 240 [facility] [address] [place] [address] Ronald Mills MD 240 [facility] A1 [place] [address] documented as of this encounter Visit Diagnoses Not on filedocumented in this encounter Additional Health Concerns Infection Onset Date Last Indicated Resolved Time COVID-19 03/05/2022 03/05/2022 03/15/2022 7:18 PM EDT Assessment Noted Time PHQ-9 Depression Total Score: 2 11/07/19 19 2:06 PM EDT documented as of this encounter Care Teams Home And Family Living Professor Relationship Specialty Start Date End Date Caitlyn Bowie MD [address] [address] PCP - General Internal Medicine 05/06/21 documented as of this encounter
--- OUTSIDE RECORDS SUMMARY | 2024-09-11 13:08 | XMS_ITS | Encounter Summary ---
Author Organization [facility] and [facility] Address [address] [place] [address] Care Team Providers Care Draw String Knotter Name Role Phone Caitlyn Bowie MD Primary Care Provider +1- [phone] Encounter Details Date Type Department Care Team (Late st Contact Info) Description 02/24/2021 Scanned Document INTERFACE DEFAULT [address] [place] [address] System, Provider Not In Social History Tobacco [...] 09/30/2024 8:30 PM EDT Procedure visit [facility] [address] [place] [address] [address] [place] [address] 10/31/2024 1:00 PM EDT [facility] 240 [facility] [address] [place] [address] Ronald Mills MD 240 [facility] A1 [place] [address] documented as of this encounter [...] documented as of this encounter Care Teams Draw String Knotter Relationship Specialty Start Date End Date Caitlyn Bowie MD [address] [address] PCP - General Internal Medicine 05/06/21 documented as of this encounter
--- OUTSIDE RECORDS SUMMARY | 2024-09-11 13:08 | XMS_ITS | Encounter Summary ---
Author Organization [facility] Address [address] [place] [address] Care Team Providers Care Integrated Specialist Name Role Phone Caitlyn Bowie MD Primary Care Provider +1- [phone] Encounter Details Date Type Department Care Team (Late st Contact Info) Description 09/01/2017 Scanned Document [facility] Health Information Management [address] [place] [address] External, Provider Social History Tobacco Use Types [...] Description 09/30/2024 8:30 PM EDT Procedure visit [facility] [address] [place] [address] [address] [place] [address] 10/31/2024 1:00 PM EDT Telemedicine [facility] 240 [facility] Building [address] [place], [place] [address] Ronald Mills MD 240 [facility] A1 [place] [address] documented as of this encounter [...] documented as of this encounter Care Teams Integrated Specialist Relationship Specialty Start Date End Date Caitlyn Bowie MD 3400 [facility] 1 [place] [address] PCP - General Internal Medicine 05/06/21 Henry Kelly MD Pulmonary Department 175 [facility], [address] [place] [address] Physician Pulmonary Disease 09/06/17 06/22/20 documented as of this encounter
--- OUTSIDE RECORDS SUMMARY | 2024-09-11 13:08 | XMS_ITS | Encounter Summary ---
Author Organization [facility] Address [address] [place] [address] Care Team Providers Care Quality Systems Technician Name Role Phone Caitlyn Bowie MD Primary Care Provider +1- [phone] Encounter Details Date Type Department Care Team (Late st Contact Info) Description 02/28/2021 Scanned Document INTERFACE DEFAULT [address] [place] [address] System, Provider Not In Social History Tobacco [...] Description 09/30/2024 8:30 PM EDT Procedure visit [facility] [address] [place] [address] [address] [place] [address] 10/31/2024 1:00 PM EDT Telemedicine [facility] at [facility] 240 [facility] [address] [place] [address] Ronald Mills MD 240 [facility] A1 [place] [address] documented as of this encounter [...] as of this encounter Care Teams Quality Systems Technician Relationship Specialty Start Date End Date Caitlyn Bowie MD [facility] [address] [address] PCP - General Internal Medicine 05/06/21 documented as of this encounter
--- OUTSIDE RECORDS SUMMARY | 2024-09-11 13:08 | XMS_ITS | Encounter Summary ---
Author Organization [facility] Address [address] [place] [address] Care Team Providers Care Process Mechanic Name Role Phone Brennan Burnett MD Primary Care Provider Unavailab Hayden Montes MD Unavailable [phone] Pallavi Flood NP Unavailable +1- [phone] Caitlyn Bowie MD Primary Care Provider Unava ilable Encounter Details Date Type Department Care Team Description 09/15/2020 [facility] [address] [place] [address] Abstract, Provider Social History Tobacco Use Types [...] on filedocumented in this encounter Care Teams Process Mechanic Relationship Specialty Start Date End Date Brennan Burnett MD PCP - General Internal Medicine 05/27/20 12/07/21 Caitlyn Bowie MD [address] [place] [address] PCP - General Internal Medicine 12/08/21 Hayden [address] MD [address] [place] [address] Specialist Cardiovascular Disease 09/01/20 Pallavi Flood NP [address] [place] [address] Cardiology 09/01/20 documented as of this encounter
--- OUTSIDE RECORDS SUMMARY | 2024-09-11 13:08 | XMS_ITS | Encounter Summary ---
Author Organization [facility] and [facility] Address [address] [place] [address] Care Team Providers Care Screen Printing Cloth Spreader Name Role Phone Caitlyn Bowie MD Primary Care Provider +1- [phone] Encounter Details Date Type Department Care Team (Late st Contact Info) Description 03/11/2021 Scanned Document INTERFACE DEFAULT [address] [place] [address] System, Provider Not In Social History Tobacco [...] Description 09/30/2024 8:30 PM EDT Procedure visit [facility] [address] [place] [address] [address] [place] [address] 10/31/2024 1:00 PM EDT [facility] 240 [facility] [address] [place] [address] Ronald Mills MD 240 [facility] A1 [place] [address] documented as of this encounter Procedures Procedure [...] documented as of this encounter Care Teams Screen Printing Cloth Spreader Relationship Specialty Start Date End Date Caitlyn Bowie MD [address] [address] PCP - General Internal Medicine 05/06/21 documented as of this encounter
--- OUTSIDE RECORDS SUMMARY | 2024-09-11 13:08 | XMS_ITS | Encounter Summary ---
Author Organization [facility] and [facility] Address [address] [place] [address] Care Team Providers Care Apns Name Role Phone Caitlyn Bowie MD Primary Care Provider +1- [phone] Encounter Details Date Type Department Care Team (Late st Contact Info) Description 01/07/2014 Documentation [facility] [address] [place] [address] Shilpi Ibarra [address] [place] [address] Social History Tobacco Use Types Packs/Day Years [...] from the original note were not included. [facility] Progress Note This is a 68 y.o. female who was provided services by [facility]. Service Provided By:: Shilpi Ibarra Patient Status: new Length of Appointment: 60 minutes Pre-Treatment Total: 3.6 Post-Treatment Total: 1.2 documented in this encounter Plan of Treatment Upcoming Encounters Date Type Department Care Team (Late st Contact Info) Description 09/30/2024 8:30 PM EDT Procedure visit [facility] [address] [place] [address] [address] [place] [address] 10/31/2024 1:00 PM EDT Telemedicine [facility] 240 [facility] Building [address] [place], [place] [address] Ronald Mills MD 240 [facility] [address]1 [place] [address] documented as of this encounter Visit Diagnoses Not on filedocumented in this encounter Additional Health Concerns Infection Onset Date Last Indicated Resolved Time COVID-19 03/05/2022 03/05/2022 03/15/2022 7:18 PM EDT documented as of this encounter Care Teams Apns Relationship Specialty Start Date End Date Caitlyn Bowie MD 3400 [facility] 1 [place] [address] PCP - General Internal Medicine 05/06/21 Henry Kelly MD Pulmonary Department 175 [facility], [address] [place] [address] Physician Pulmonary Disease 09/06/17 06/22/20 documented as of this encounter
--- OUTSIDE RECORDS SUMMARY | 2024-09-11 13:08 | XMS_ITS | Encounter Summary ---
Author Organization [facility] and [facility] Address [address] [place] [address] Care Team Providers Care Mental Health Aides Teacher Name Role Phone Caitlyn Bowie MD Primary Care Provider +1- [phone] Encounter Details Date Type Department Care Team (Late st Contact Info) Description 02/15/2021 Scanned Document INTERFACE DEFAULT [address] [place] [address] System, Provider Not In Social History Tobacco [...] Description 09/30/2024 8:30 PM EDT Procedure visit [facility] [address] [place] [address] [address] [place] [address] 10/31/2024 1:00 PM EDT [facility] 240 [facility] [address] [place] [address] Ronald Mills MD 240 [facility] A1 [place] [address] documented as of this encounter Visit Diagnoses Not on filedocumented in this encounter Additional Health Concerns Infection Onset Date Last Indicated Resolved Time COVID-19 03/05/2022 03/05/2022 03/15/2022 7:18 PM EDT Assessment Noted Time PHQ-9 Depression Total Score: 2 11/07/19 19 2:06 PM EDT documented as of this encounter Care Teams Mental Health Aides Teacher Relationship Specialty Start Date End Date Caitlyn Bowie MD [address] [address] PCP - General Internal Medicine 05/06/21 documented as of this encounter
--- OUTSIDE RECORDS SUMMARY | 2024-09-11 13:08 | XMS_ITS | Encounter Summary ---
Author Organization [facility] Address [address] [place] [address] Care Team Providers Care University Archivist Name Role Phone Caitlyn Bowie MD Primary Care Provider +1- [phone] Encounter Details Date Type Department Care Team (Late st Contact Info) Description 09/18/2020 Scanned Document INTERFACE DEFAULT [address] [place] [address] System, Provider Not In Social History Tobacco [...] Description 09/30/2024 8:30 PM EDT Procedure visit [facility] [address] [place] [address] [address] [place] [address] 10/31/2024 1:00 PM EDT [facility] 240 [facility] Building [address] [place] [address] Ronald Mills MD 240 [facility] A1 [place] [address] documented as of this encounter Visit Diagnoses Not on filedocumented in this encounter Additional Health Concerns Infection Onset Date Last Indicated Resolved Time COVID-19 03/05/2022 03/05/2022 03/15/2022 7:18 PM EDT Assessment Noted Time PHQ-9 Depression Total Score: 2 11/07/19 19 2:06 PM EDT documented as of this encounter Care Teams University Archivist Relationship Specialty Start Date End Date Caitlyn Bowie MD [address] [address] PCP - General Internal Medicine 05/06/21 documented as of this encounter
--- OUTSIDE RECORDS SUMMARY | 2024-09-11 13:08 | XMS_ITS | Encounter Summary ---
Author Organization [facility] and [facility] Address [address] [place] [address] Care Team Providers Care Cardiac Nurse Specialist Name Role Phone Caitlyn Bowie MD Primary Care Provider +1- [phone] Encounter Details Date Type Department Care Team (Late st Contact Info) Description 01/26/2018 Scanned Document [facility] Health Information Management [address] [place] [address] External, Provider Social History Tobacco Use Types [...] Description 09/30/2024 8:30 PM EDT Procedure visit [facility] [address] [place] [address] [address] [place] [address] 10/31/2024 1:00 PM EDT [facility] 240 [facility] Building [address] [place], [place] [address] Ronald Mills MD 240 [facility] A1 [place] [address] documented as of this encounter Visit Diagnoses Not on filedocumented in this encounter Additional Health Concerns Infection Onset Date Last Indicated Resolved Time COVID-19 03/05/2022 03/05/2022 03/15/2022 7:18 PM EDT documented as of this encounter Care Teams Cardiac Nurse Specialist Relationship Specialty Start Date End Date Caitlyn Bowie MD 3400 [facility] 1 [place] [address] PCP - General Internal Medicine 05/06/21 Henry Kelly MD Pulmonary Department 175 [facility], [address] [place] [address] Physician Pulmonary Disease 09/06/17 06/22/20 documented as of this encounter
--- OUTSIDE RECORDS SUMMARY | 2024-09-11 13:08 | XMS_ITS | Encounter Summary ---
Author Organization [facility] Address [address] [place] [address] Care Team Providers Care Glass Or Mirror Inspector Name Role Phone Sharon Vides Primary Care Provider Unava ilable Brennan Burnett MD Primary Care Provider Unavailab Hayden Montes MD Unavailable [phone] Pallavi Flood NP Unavailable [phone] Caitlyn Bowie MD Primary Care Provider Unava ilable Reason for Visit * Reason Onset Date Comments other 12/13/2019 Encounter Details Date Type Department Care Team Description 12/13/2019 Telephone General Surgery [address] [address] Norma Mendoza MD [address] [place] [address] [phone] other Social History Tobacco Use Types Packs/Day [...] and put pt in with [facility]-- opening [id number]-- pt said very painful- possibly infected and [...] on filedocumented in this encounter Care Teams Glass Or Mirror Inspector Relationship Specialty Start Date End Date Sharon Vides PCP - General Internal Medicine 08/02/18 05/26/20 Brennan Burnett MD PCP - General Internal Medicine 05/27/20 12/07/21 Caitlyn Bowie MD [address] [place] [address] PCP - General Internal Medicine 12/08/21 Hayden Shah MD [address] [place] [address] Specialist Cardiovascular Disease 09/01/20 Pallavi Flood NP [address] [place] [address] Cardiology 09/01/20 documented as of this encounter
--- OUTSIDE RECORDS SUMMARY | 2024-09-11 13:08 | XMS_ITS | Encounter Summary ---
Author Organization [facility] Address [address] [place] [address] Care Team Providers Care Software Engineering Project Manager Name Role Phone Caitlyn Bowie MD Primary Care Provider [phone]- [phone] Encounter Details Date Type Department Care Team (Late st Contact Info) Description 03/01/2021 Scanned Document INTERFACE DEFAULT [address] [place] [address] System, Provider Not In Social History Tobacco [...] Description 09/30/2024 8:30 PM EDT Procedure visit [facility] [address] [place] [address] [address] [place] [address] 10/31/2024 1:00 PM EDT Telemedicine [facility] at [facility] 240 [facility] [address] [place] [address] Ronald Mills MD 240 [facility] A1 [place] [address] documented as of this encounter Visit Diagnoses Not on filedocumented in this encounter Additional Health Concerns Infection Onset Date Last Indicated Resolved Time COVID-19 03/05/2022 03/05/2022 03/15/2022 7:18 PM EDT Assessment Noted Time PHQ-9 Depression Total Score: 2 11/07/19 19 2:06 PM EDT documented as of this encounter Care Teams Software Engineering Project Manager Relationship Specialty Start Date End Date Caitlyn Bowie MD [address] [address] PCP - General Internal Medicine 05/06/21 documented as of this encounter
--- OUTSIDE RECORDS SUMMARY | 2024-09-11 13:08 | XMS_ITS | Encounter Summary ---
Author Organization [facility] and [facility] Address [address] [place] [address] Care Team Providers Care Butcher'S Assistant Name Role Phone Caitlyn Bowie MD Primary Care Provider [phone]- [phone] Encounter Details Date Type Department Care Team (Late st Contact Info) Description 03/15/2021 Scanned Document INTERFACE DEFAULT [address] [place] [address] System, Provider Not In Social History Tobacco [...] 09/30/2024 8:30 PM EDT Procedure visit [facility] [address] [place] [address] [address] [place] [address] 10/31/2024 1:00 PM EDT [facility]medicine [facility] 240 [facility] [address] [place] [address] Ronald Mills MD 240 [facility] [address]1 [place] [address] documented as of this encounter Procedures Procedure [...] documented as of this encounter Care Teams Butcher'S Assistant Relationship Specialty Start Date End Date Caitlyn Bowie MD [address] [address] PCP - General Internal Medicine 05/06/21 documented as of this encounter
--- OUTSIDE RECORDS SUMMARY | 2024-09-11 13:08 | XMS_ITS | Encounter Summary ---
Author Organization [facility] Address [address] [place] [address] Care Team Providers Care Mathematical Sciences Professor Name Role Phone Caitlyn Bowie MD Primary Care Provider +1- [phone] Encounter Details Date Type Department Care Team (Late st Contact Info) Description 01/26/2018 Scanned Document [facility] Health Information Management [address] [place] [address] External, Provider Social History Tobacco Use Types [...] Description 09/30/2024 8:30 PM EDT Procedure visit [facility] [address] [place] [address] [address] [place] [address] 10/31/2024 1:00 PM EDT [facility]medicine [facility] 240 [facility] Building [address] [place], [place] [address] Ronald Mills MD 240 [facility] [address]1 [place] [address] documented as of this encounter [...] documented as of this encounter Care Teams Mathematical Sciences Professor Relationship Specialty Start Date End Date Caitlyn Bowie MD 3400 [facility] 1 [place] [address] PCP - General Internal Medicine 05/06/21 Henry Kelly MD Pulmonary Department 175 [facility], [address] [place] [address] Physician Pulmonary Disease 09/06/17 06/22/20 documented as of this encounter
--- OUTSIDE RECORDS SUMMARY | 2024-09-11 13:08 | XMS_ITS | Encounter Summary ---
Author Organization [facility] and [facility] Address [address] [place] [address] Care Team Providers Care Statistical Programmer Analyst Name Role Phone Caitlyn Bowie MD Primary Care Provider +1- [phone] Encounter Details Date Type Department Care Team (Late st Contact Info) Description 03/08/2021 Scanned Document INTERFACE DEFAULT [address] [place] [address] System, Provider Not In Social History Tobacco [...] Description 09/30/2024 8:30 PM EDT Procedure visit [facility] [address] [place] [address] [address] [place] [address] 10/31/2024 1:00 PM EDT Telemedicine Cancer Center at [facility] 240 [facility] [address] [place] [address] Ronald Mills MD 240 [facility] [address]1 [place] [address] documented as of this encounter Procedures Procedure [...] documented as of this encounter Care Teams Statistical Programmer Analyst Relationship Specialty Start Date End Date Caitlyn Bowie MD [address] [address] PCP - General Internal Medicine 05/06/21 documented as of this encounter
--- OUTSIDE RECORDS SUMMARY | 2024-09-11 13:08 | XMS_ITS | Encounter Summary ---
Author Organization [facility] Address [address] [place] [address] Care Team Providers Care On Site Wastewater Systems Technician Name Role Phone Sharon Vides Primary Care Provider Unava ilable Brennan Burnett MD Primary Care Provider Unavailab Hayden Montes MD Unavailable [phone] Pallavi Flood NP Unavailable [phone]- [phone] Caitlyn Bowie MD Primary Care Provider Unava ilable Reason for Visit * Reason Onset Date Comments Ankle Pain 07/05/2019 le, foot pain Encounter Details Date Type Department Care Team Description 07/05/2019 Telephone General Surgery [address] [place] [address] Norma Mendoza MD [address] [place] [address] Ankle Pain (le, foot pain) Social History [...] on filedocumented in this encounter Care Teams On Site Wastewater Systems Technician Relationship Specialty Start Date End Date Sharon Vides PCP - General Internal Medicine 08/02/18 05/26/20 Brennan Burnett MD PCP - General Internal Medicine 05/27/20 12/07/21 Caitlyn Bowie MD [address] [place] [address] PCP - General Internal Medicine 12/08/21 Hayden Shah MD [address] [place] [address] Specialist Cardiovascular Disease 09/01/20 Pallavi Flood NP [address] [place] [address] Cardiology 09/01/20 documented as of this encounter
--- OUTSIDE RECORDS SUMMARY | 2024-09-11 13:08 | XMS_ITS | Encounter Summary ---
Author Organization [facility] and [facility] Address [address] [place] [address] Care Team Providers Care Cane Weigher Helper Name Role Phone Caitlyn Bowie MD Primary Care Provider [phone]- [phone] Encounter Details Date Type Department Care Team (Late st Contact Info) Description 10/07/2013 Scanned Document Thoracic Oncology Program at [address] [address] Suzy oKng MD [address] [place] [address] Social History Tobacco Use Types Packs/Day [...] EDT Procedure visit [facility] [address] [place] [address] [place] [address] 10/31/2024 1:00 PM EDT Telemedicine Cancer Center at [address] [place] [address] Ronald Mills MD 240 [facility] [address] [place] [address] documented as of this encounter Visit Diagnoses Not on filedocumented in this encounter Additional Health Concerns Infection Onset Date Last Indicated Resolved Time COVID-19 03/05/2022 03/05/2022 03/15/2022 7:18 PM EDT documented as of this encounter Care Teams Cane Weigher Helper Relationship Specialty Start Date End Date Caitlyn Bowie MD 3400 [facility] 1 [place] [address] PCP - General Internal Medicine 05/06/21 Henry Kelly MD Pulmonary Department 175 [facility], [address] [place] [address] Physician Pulmonary Disease 09/06/17 06/22/20 documented as of this encounter
--- OUTSIDE RECORDS SUMMARY | 2024-09-11 13:09 | XMS_ITS | Encounter Summary ---
Author Organization [facility] Address [address] [place] [address] Care Team Providers Care Stiff Straw Hat Washer Name Role Phone Sharon Vides Primary Care Provider Brennan Castro MD Primary Care Provider Unavailab Hayden Montes MD Unavailable [phone] Pallavi Flood NP Unavailable [phone]- [phone] Caitlyn Bowie MD Primary Care Provider Johnathon shaver Encounter Details Date Type Department Care Team Description 11/06/2018 Diesel Locomotive Crane Operator Report Medical Records [address] [place] [address] Abstract, Provider Social History Tobacco Use Types [...] on filedocumented in this encounter Care Teams Stiff Straw Hat Washer Relationship Specialty Start Date End Date Sharon Vides PCP - General Internal Medicine 08/02/18 05/26/20 Brennan Burnett MD PCP - General Internal Medicine 05/27/20 12/07/21 Caitlyn Bowie MD [address] [place] [address] PCP - General Internal Medicine 12/08/21 Hayden Shah MD [address] [place] [address] Specialist Cardiovascular Disease 09/01/20 Pallavi Flood NP [address] [place] [address] Cardiology 09/01/20 documented as of this encounter
--- OUTSIDE RECORDS SUMMARY | 2024-09-11 13:09 | XMS_ITS | Encounter Summary ---
Author Organization [facility] and [facility] Address [address] [place] [address] Care Team Providers Care Hot Metal Crane Operator Name Role Phone Caitlyn Bowie MD Primary Care Provider +1- [phone] Encounter Details Date Type Department Care Team (Late st Contact Info) Description 04/28/2015 Scanned Document [facility] Health Information Management [address] [place] [address] External, Provider Social History Tobacco Use Types [...] 09/30/2024 8:30 PM EDT Procedure visit [facility] [address] [place] [address] [address] [place] [address] 10/31/2024 1:00 PM EDT Telemedicine Cancer Center at [facility] 240 [facility] Building [address] [place], [place] [address] Ronald Mills MD 240 [facility] A1 [place] [address] documented as of this encounter Visit Diagnoses Not on filedocumented in this encounter Additional Health Concerns Infection Onset Date Last Indicated Resolved Time COVID-19 03/05/2022 03/05/2022 03/15/2022 7:18 PM EDT documented as of this encounter Care Teams Hot Metal Crane Operator Relationship Specialty Start Date End Date Caitlyn Bowie MD 3400 [facility] Max 1 [place] [address] PCP - General Internal Medicine 05/06/21 Henry Kelly MD Pulmonary Department 175 [facility], [address] [place] [address] Physician Pulmonary Disease 09/06/17 06/22/20 documented as of this encounter
--- OUTSIDE RECORDS SUMMARY | 2024-09-11 13:09 | XMS_ITS | Encounter Summary ---
Author Organization [facility] Address [address] [place] [address] Care Team Providers Care Cylinder Inspector And Tester Name Role Phone Caitlyn Bowie MD Primary Care Provider +1- [phone] Encounter Details Date Type Department Care Team (Late st Contact Info) Description 02/01/2018 Scanned Document [facility] Health Information Management [address] [place] [address] External, Provider Social History Tobacco Use Types [...] 09/30/2024 8:30 PM EDT Procedure visit [facility] [address] [place] [address] [address] [place] [address] 10/31/2024 1:00 PM EDT Telemedicine [facility] Center at [facility] 240 [facility] Building [address] [place], [place] [address] Ronald Mills MD 240 [facility] A1 [place] [address] documented as of this encounter [...] as of this encounter Care Teams Cylinder Inspector And Tester Relationship Specialty Start Date End Date Caitlyn Bowie MD 3400 [facility] 1 [place] [address] PCP - General Internal Medicine 05/06/21 Henry Kelly MD Pulmonary Department 175 [facility], [address] [place] [address] Physician Pulmonary Disease 09/06/17 06/22/20 documented as of this encounter
--- OUTSIDE RECORDS SUMMARY | 2024-09-11 13:09 | XMS_ITS | Encounter Summary ---
Author Organization [facility] and [facility] Address [address] [place] [address] Care Team Providers Care Professional Fighter Name Role Phone Caitlyn Bowie MD Primary Care Provider +1- [phone] Encounter Details Date Type Department Care Team (Late st Contact Info) Description 01/26/2018 Scanned Document [facility] Health Information Management [address] [place] [address] External, Provider Social History Tobacco Use Types [...] Description 09/30/2024 8:30 PM EDT Procedure visit [facility] [address] [place] [address] [address] [place] [address] 10/31/2024 1:00 PM EDT Telemedicine Cancer Center at [facility] 240 [facility] Building [address] [place], [place] [address] Ronald Mills MD 240 [facility] A1 [place] [address] documented as of this encounter [...] as of this encounter Care Teams Professional Fighter Relationship Specialty Start Date End Date Caitlyn Bowie MD 3400 [facility] 1 [place] [address] PCP - General Internal Medicine 05/06/21 Henry Kelly MD Pulmonary Department 175 [facility], [address] [place] [address] Physician Pulmonary Disease 09/06/17 06/22/20 documented as of this encounter
--- OUTSIDE RECORDS SUMMARY | 2024-09-11 13:09 | XMS_ITS | Encounter Summary ---
Author Organization [facility] Address [address] [place] [address] Care Team Providers Care Spooler Name Role Phone Sharon Vides Primary Care Provider Unava ilable Brennan Burnett MD Primary Care Provider Unavailab Hayden Montes MD Unavailable [phone] Pallavi Flood NP Unavailable [phone]- [phone] Caitlyn Bowie MD Primary Care Provider Unava ilable Reason for Visit * Reason Onset Date Comments refill request 01/28/2019 Encounter Details Date Type Department Care Team Description 01/28/2019 Refill Pulmonology - [address] [place] [address] Henry Kelly MD refill request [...] / Plan: [place] / Product Type: MEDICARE [id number] documented in this encounter Plan of Treatment Not on file documented as of this encounter Visit Diagnoses Not on filedocumented in this encounter Care Teams Spooler Relationship Specialty Start Date End Date Sharon Vides PCP - General Internal Medicine 08/02/18 05/26/20 Brennan Burnett MD PCP - General Internal Medicine 05/27/20 12/07/21 C[address]lyn [address] [place] [address] PCP - General Internal Medicine 12/08/21 Hayden Shah MD [address] [place] [address] Specialist Cardiovascular Disease 09/01/[address] [place] [address] Cardiology 09/01/20 documented as of this encounter
--- OUTSIDE RECORDS SUMMARY | 2024-09-11 13:09 | XMS_ITS | Encounter Summary ---
Author Organization [facility] Address [address] [place] [address] Care Team Providers Care Shingle Carrier Name Role Phone Caitlyn Bowie MD Primary Care Provider +1- [phone] Encounter Details Date Type Department Care Team (Late st Contact Info) Description 01/13/2021 Scanned Document Cancer Center at [address] [address] External, Provider Social History Tobacco Use Types [...] Procedure visit [facility] [address] [place] [address] [place] [address] 10/31/2024 1:00 PM EDT Telemedicine Cancer Center at [address] [place], [place] [address] Ronald Mills MD [address] [address] documented as of this encounter [...] documented as of this encounter Care Teams Shingle Carrier Relationship Specialty Start Date End Date Caitlyn Bowie MD [address] [address] PCP - General Internal Medicine 05/06/21 documented as of this encounter
--- OUTSIDE RECORDS SUMMARY | 2024-09-11 13:09 | XMS_ITS | Encounter Summary ---
Author Organization [facility] Address [address] [place] [address] Care Team Providers Care Insulation Cupola Charger Name Role Phone Caitlyn Bowie MD Primary Care Provider +1- [phone] Encounter Details Date Type Department Care Team (Late st Contact Info) Description 05/14/2015 Scanned Document [facility] Health Information Management [address] [place] [address] External, Provider Social History Tobacco Use Types [...] Description 09/30/2024 8:30 PM EDT Procedure visit [facility] [address] [place] [address] [address] [place] [address] 10/31/2024 1:00 PM EDT Telemedicine Cancer Center at [facility] 240 [facility] Building [address] [place], [place] [address] Ronald Mills MD 240 [facility] A1 [place] [address] documented as of this encounter Visit Diagnoses Not on filedocumented in this encounter Additional Health Concerns Infection Onset Date Last Indicated Resolved Time COVID-19 03/05/2022 03/05/2022 03/15/2022 7:18 PM EDT documented as of this encounter Care Teams Insulation Cupola Charger Relationship Specialty Start Date End Date Caitlyn Bowie MD [address] [facility] Max 1 [place] [address] PCP - General Internal Medicine 05/06/21 Henry Kelly MD Pulmonary Department 175 [facility], [address] [place] [address] Physician Pulmonary Disease 09/06/17 06/22/20 documented as of this encounter
--- OUTSIDE RECORDS SUMMARY | 2024-09-11 13:09 | XMS_ITS | Encounter Summary ---
Author Organization [facility] and [facility] Address [address] [place] [address] Care Team Providers Care Administrative Staff Supervisor Name Role Phone Caitlyn Bowie MD Primary Care Provider +1- [phone] Encounter Details Date Type Department Care Team (Late st Contact Info) Description 02/02/2018 Scanned Document [facility] Health Information Management [address] [place] [address] External, Provider Social History Tobacco Use Types [...] 09/30/2024 8:30 PM EDT Procedure visit [facility] [address] [place] [address] [address] [place] [address] 10/31/2024 1:00 PM EDT Telemedicine [facility] at [facility] 240 [facility] Building [address] [place], [place] [address] Ronald Mills MD 240 [facility] A1 [place] [address] documented as of this encounter Visit Diagnoses Not on filedocumented in this encounter Additional Health Concerns Infection Onset Date Last Indicated Resolved Time COVID-19 03/05/2022 03/05/2022 03/15/2022 7:18 PM EDT documented as of this encounter Care Teams Administrative Staff Supervisor Relationship Specialty Start Date End Date Caitlyn Bowie MD 3400 [facility] 1 [place] [address] PCP - General Internal Medicine 05/06/21 Henry Kelly MD Pulmonary Department 175 [facility], [address] [place] [address] Physician Pulmonary Disease 09/06/17 06/22/20 documented as of this encounter
--- OUTSIDE RECORDS SUMMARY | 2024-09-11 13:09 | XMS_ITS | Encounter Summary ---
Author Organization [facility] Address [address] [place] [address] Care Team Providers Care Tool And Die Designer Name Role Phone Sharon Vides Primary Care Provider Brennan Castro MD Primary Care Provider Unavailab Hayden Montes MD Unavailable [phone] Pallavi Flood NP Unavailable [phone]- [phone] Caitlyn Bowie MD Primary Care Provider Johnathon shaver Encounter Details Date Type Department Care Team Description 12/28/2018 Orders Only Medical Records [address] [place] [address] Abstract, Provider Aspiration pneumonia, unspecified aspiration pneumonia [...] (HCC) documented in this encounter Care Teams Tool And Die Designer Relationship Specialty Start Date End Date Sharon Vides PCP - General Internal Medicine 08/02/18 05/26/20 Brennan Burnett MD PCP - General Internal Medicine 05/27/20 12/07/21 Caitlyn Bow[address] MD [address] [place] [address] PCP - General Internal Medicine 12/08/21 Hayden Shah MD [address] [place] [address] Specialist Cardiovascular Disease 09/01/20 [address] Flood NP [address] [place] [address] Cardiology 09/01/20 documented as of this encounter
--- OUTSIDE RECORDS SUMMARY | 2024-09-11 13:09 | XMS_ITS | Encounter Summary ---
Author Organization [facility] and [facility] Address [address] [place] [address] Care Team Providers Care Pick Up Name Role Phone Caitlyn Bowie MD Primary Care Provider +1- [phone] Encounter Details Date Type Department Care Team (Late st Contact Info) Description 04/28/2015 Scanned Document [facility] Health Information Management [address] [place] [address] External, Provider Social History Tobacco Use Types [...] Description 09/30/2024 8:30 PM EDT Procedure visit [facility] [address] [place] [address] [address] [place] [address] 10/31/2024 1:00 PM EDT Telemedicine [facility] at [facility] [address] [facility] [address] [place], [place] [address] Ronald Mills MD 240 [facility] [address]1 [place] [address] documented as of this encounter Procedures Procedure Name Priority Date/Time Associated Diagnosis Comments LAB SCAN Routine 04/28/2015 documented in this encounter Results * Lab Scan (04/28/2015) Blood specimen (specimen) us Provider External LAB BLOOD ORDERABLES Edited Re sult - Final [facility] [place], [place], [facility] documented in this encounter Visit Diagnoses Not on filedocumented in this encounter Additional Health Concerns Infection Onset Date Last Indicated Resolved Time COVID-19 03/05/2022 03/05/2022 03/15/2022 7:18 PM EDT documented as of this encounter Care Teams Pick Up Relationship Specialty Start Date End Date Caitlyn Bowie MD 3400 [facility] 1 [place] [address] PCP - General Internal Medicine 05/06/21 [place] Kelly MD Pulmonary Department 175 [facility], [address] [place] [address] Physician Pulmonary Disease 09/06/17 06/22/20 documented as of this encounter
--- OUTSIDE RECORDS SUMMARY | 2024-09-11 13:09 | XMS_ITS | Encounter Summary ---
Author Organization [facility] and [facility] Address [address] [place] [address] Care Team Providers Care Kingsbury Machine Operator Name Role Phone Caitlyn Bowie MD Primary Care Provider +1- [phone] Reason for Visit * Reason Comments Other Encounter Details Date Type Department Care Team (Late st Contact Info) Description 01/12/2021 Telephone [facility] at [address] - [address] [phone] Ronald Mills MD [address] [place] [phone] Other Social History Tobacco Use Types [...] AM EDT Lab orders were faxed to [facility] @ [phone]. Patient notified by phone. * Telephone Encounter - Nsaima Wang - 01/12/2021 8:46 AM EDT Pt called looking to speak with Kirstin RE: lab orders sent to lab [facility] lab Looking to have labs sent there A.S.A.P at some point today She is scheduled with Dr. Mills on January 28 documented in this encounter Plan of Treatment Upcoming Encounters Date Type Department Care Team (Late st Contact Info) Description 09/30/2024 8:30 PM EDT Procedure visit [facility] [address] [place] [address] [address] [place] [address] 10/31/2024 1:00 PM EDT Telemedicine [facility] 240 [facility] [address] [place], [place] [address] Ronald Mills MD 240 [facility] [address]1 [place] [address] documented as of this encounter Visit Diagnoses Not on filedocumented in this encounter Additional Health Concerns Infection Onset Date Last Indicated Resolved Time COVID-19 03/05/2022 03/05/2022 03/15/2022 7:18 PM EDT Assessment Noted Time PHQ-9 Depression Total Score: 2 11/07/19 19 2:06 PM EDT documented as of this encounter Care Teams Kingsbury Machine Operator Relationship Specialty Start Date End Date Caitlyn Bowie MD [address] [facility] 1 [place] [address] PCP - General Internal Medicine 05/06/21 documented as of this encounter
--- OUTSIDE RECORDS SUMMARY | 2024-09-11 13:09 | XMS_ITS | Encounter Summary ---
Author Organization [facility] Address [address] [place] [address] Care Team Providers Care Range Mechanic Name Role Phone Caitlyn Bowie MD Primary Care Provider +1- [phone] Encounter Details Date Type Department Care Team (Late st Contact Info) Description 01/30/2018 Scanned Document [facility] Health Information Management [address] [place] [address] External, Provider Social History Tobacco Use Types [...] Description 09/30/2024 8:30 PM EDT Procedure visit [facility] [address] [place] [address] [address] [place] [address] 10/31/2024 1:00 PM EDT [facility]icine [facility] [address] [facility] [address] [place], [place] [phone] Ronald Mills MD 240 [facility] A1 [place] [address] documented as of this encounter [...] documented as of this encounter Care Teams Range Mechanic Relationship Specialty Start Date End Date Caitlyn Bowie MD 3400 [facility] 1 [place] [address] PCP - General Internal Medicine 05/06/21 Herny Kelly MD Pulmonary Department [address] [facility], [address] [place] [address] Physician Pulmonary Disease 09/06/17 06/22/20 documented as of this encounter
--- OUTSIDE RECORDS SUMMARY | 2024-09-11 13:09 | XMS_ITS | Encounter Summary ---
Author Organization [facility] Address [address] [place] [address] Care Team Providers Care Technical Support 1 Software Engineer Name Role Phone Sharon Vides Primary Care Provider Brennan Castro MD Primary Care Provider Unavailab Hayden Montes MD Unavailable [phone] Pallavi Flood NP Unavailable +1- [phone] Caitlyn Bowie MD Primary Care Provider Johnathon shaver Encounter Details Date Type Department Care Team Description 11/26/2018 Pt. Non Urgent Medic al Question Pulmonology - [place] 175 [facility] [address] [place] [address] [place] MD Social History [...] on filedocumented in this encounter Care Teams Technical Support 1 Software Engineer Relationship Specialty Start Date End Date Sharon Vides PCP - General Internal Medicine 08/02/18 05/26/20 Brennan Burnett MD PCP - General Internal Medicine 05/27/20 12/07/21 Caitlyn Bowie MD [address] [place] [address] PCP - General Internal Medicine 12/08/21 Hayden Shah MD [address] [place] [address] Specialist Cardiovascular Disease 09/01/20 Pallavi Flood NP [address] [place] [address] Cardiology 09/01/20 documented as of this encounter
--- OUTSIDE RECORDS SUMMARY | 2024-09-11 13:09 | XMS_ITS | Encounter Summary ---
Author Organization [facility] and [facility] Address [address] [place] [address] Care Team Providers Care Project Surveyor Name Role Phone Caitlyn Bowie MD Primary Care Provider +1- [phone] Encounter Details Date Type Department Care Team (Late st Contact Info) Description 02/19/2015 Scanned Document [facility] Health Information Management [address] [place] [address] External, Provider Social History Tobacco Use Types [...] Description 09/30/2024 8:30 PM EDT Procedure visit [facility] [address] [place] [address] [address] [place] [address] 10/31/2024 1:00 PM EDT Telemedicine [facility] [address] [facility] [address] [place], [place] [address] Ronald Mills MD 240 [facility] A1 [place] [address] documented as of this encounter Procedures Procedure Name Priority Date/Time Associated Diagnosis Comments LAB SCAN Routine 02/19/2015 documented in this encounter Results * Lab Scan (02/19/2015) Blood specimen (specimen) us Provider External LAB BLOOD ORDERABLES Final Res ult Performing Organization Address City/State/[facility] Co de Phone Number [facility] documented in this encounter Visit Diagnoses Not on filedocumented in this encounter Additional Health Concerns Infection Onset Date Last Indicated Resolved Time COVID-19 03/05/2022 03/05/2022 03/15/2022 7:18 PM EDT documented as of this encounter Care Teams Project Surveyor Relationship Specialty Start Date End Date Caitlyn Bowie MD 3400 [facility] 1 [place] [address] PCP - General Internal Medicine 05/06/21 [place] Kelly MD Pulmonary Department 175 [facility], [address] [place] [address] Physician Pulmonary Disease 09/06/17 06/22/20 documented as of this encounter
--- OUTSIDE RECORDS SUMMARY | 2024-09-11 13:09 | XMS_ITS | Encounter Summary ---
Author Organization [facility] and [facility] Address [address] [place] [address] Care Team Providers Care Stack Yield Engineer Name Role Phone Caitlyn Bowie MD Primary Care Provider +1- [phone] Encounter Details Date Type Department Care Team (Late st Contact Info) Description 01/26/2018 Scanned Document [facility] Health Information Management [address] [place] [address] External, Provider Social History Tobacco Use Types [...] Description 09/30/2024 8:30 PM EDT Procedure visit [facility] [address] [place] [address] [address] [place] [address] 10/31/2024 1:00 PM EDT Telemedicine [facility] [address] [facility] [address] [place], [place] [phone] Ronald Mills MD 240 [facility] [address]1 [place] [address] documented as of this encounter [...] documented as of this encounter Care Teams Stack Yield Engineer Relationship Specialty Start Date End Date Caitlyn Bowie MD 3400 [facility] 1 [place] [address] PCP - General Internal Medicine 05/06/21 [place] Kelly MD Pulmonary Department 175 [facility], [address] [place] [address] Physician Pulmonary Disease 09/06/17 06/22/20 documented as of this encounter
--- OUTSIDE RECORDS SUMMARY | 2024-09-11 13:09 | XMS_ITS | Encounter Summary ---
Author Organization [facility] and [facility] Address [address] [place] [address] Care Team Providers Care Installer Name Role Phone Caitlyn Bowie MD Primary Care Provider +1- [phone] Encounter Details Date Type Department Care Team (Late st Contact Info) Description 12/21/2020 Scanned Document INTERFACE DEFAULT [address] [place] [phone] System, Provider Not In Social History Tobacco [...] EDT Procedure visit [facility] [address] [place] [address] [address] [place] [address] 10/31/2024 1:00 PM EDT Telemedicine [facility] 240 [facility] Building [address] [place] [address] Ronald Mills MD 240 [facility] A1 [place] [address] documented as of this encounter Visit Diagnoses Not on filedocumented in this encounter Additional Health Concerns Infection Onset Date Last Indicated Resolved Time COVID-19 03/05/2022 03/05/2022 03/15/2022 7:18 PM EDT Assessment Noted Time PHQ-9 Depression Total Score: 2 11/07/19 19 2:06 PM EDT documented as of this encounter Care Teams Installer Relationship Specialty Start Date End Date Caitlyn Bowie MD [address] [address] PCP - General Internal Medicine 05/06/21 documented as of this encounter
--- OUTSIDE RECORDS SUMMARY | 2024-09-11 13:09 | XMS_ITS | Encounter Summary ---
Author Organization [facility] and [facility] Address [address] [place] [address] Care Team Providers Care Engineer Fishing Vessel Name Role Phone Ciatlyn Bowie MD Primary Care Provider +1- [phone] Encounter Details Date Type Department Care Team (Late st Contact Info) Description 01/28/2018 Scanned Document [facility] Health Information Management [address] [place] [address] External, Provider Social History Tobacco Use Types [...] Description 09/30/2024 8:30 PM EDT Procedure visit [facility] [address] [place] [address] [address] [place] [address] 10/31/2024 1:00 PM EDT [facility]icine [facility] 240 [facility] Building [address] [place], [place] [phone] Ronald Mills MD 240 [facility] A1 [place] [address] documented as of this encounter Visit Diagnoses Not on filedocumented in this encounter Additional Health Concerns Infection Onset Date Last Indicated Resolved Time COVID-19 03/05/2022 03/05/2022 03/15/2022 7:18 PM EDT documented as of this encounter Care Teams Engineer Fishing Vessel Relationship Specialty Start Date End Date Caitlyn Bowie MD 34[address] [facility] 1 [place] [address] PCP - General Internal Medicine 05/06/21 [place] Kelly MD Pulmonary Department 175 [facility], [address] [place] [address] Physician Pulmonary Disease 09/06/17 06/22/20 documented as of this encounter
--- OUTSIDE RECORDS SUMMARY | 2024-09-11 13:09 | XMS_ITS | Encounter Summary ---
Author Organization [facility] and [facility] Address [address] [place] [address] Care Team Providers Care Partner Marketing Intern Name Role Phone Caitlyn Bowie MD Primary Care Provider +1- [phone] Encounter Details Date Type Department Care Team (Late st Contact Info) Description 11/09/2014 Scanned Document [facility] Health Information Management [address] [place] [address] External, Provider Social History Tobacco Use Types [...] Description 09/30/2024 8:30 PM EDT Procedure visit [facility] [address] [place] [address] [address] [place] [address] 10/31/2024 1:00 PM EDT [facility] 240 [facility] Building [address] [place], [place] [address] Ronald Mills MD 240 [facility] A1 [place] [address] documented as of this encounter Visit Diagnoses Not on filedocumented in this encounter Additional Health Concerns Infection Onset Date Last Indicated Resolved Time COVID-19 03/05/2022 03/05/2022 03/15/2022 7:18 PM EDT documented as of this encounter Care Teams Partner Marketing Intern Relationship Specialty Start Date End Date Caitlyn Bowie MD 3400 [facility] [address] 1 [place] [address] PCP - General Internal Medicine 05/06/21 [place] Kelly MD Pulmonary Department 175 [facility], [address] [place] [address] Physician Pulmonary Disease 09/06/17 06/22/20 documented as of this encounter
--- OUTSIDE RECORDS SUMMARY | 2024-09-11 13:09 | XMS_ITS | Encounter Summary ---
Author Organization [facility] and [facility] Address [address] [place] [address] Care Team Providers Care Dye Reel Operator Name Role Phone Caitlyn Bowie MD Primary Care Provider +1- [phone] Encounter Details Date Type Department Care Team (Late st Contact Info) Description 01/28/2018 Scanned Document [facility] Health Information Management [address] [place] [address] External, Provider Social History Tobacco Use Types [...] Description 09/30/2024 8:30 PM EDT Procedure visit [facility] [address] [place] [address] [address] [place] [address] 10/31/2024 1:00 PM EDT Telemedicine [facility] at [facility] 240 [facility] Building [address] [place], [place] [phone] Ronald Mills MD 240 [facility] [address]1 [place] [address] documented as of this [...] as of this encounter Care Teams Dye Reel Operator Relationship Specialty Start Date End Date Caitlyn Bowie MD 3400 [facility] 1 [place] [address] PCP - General Internal Medicine 05/06/21 [place] Kelly MD Pulmonary Department 175 [facility], [address] [place] [address] Physician Pulmonary Disease 09/06/17 06/22/20 documented as of this encounter
--- OUTSIDE RECORDS SUMMARY | 2024-09-11 13:09 | XMS_ITS | Encounter Summary ---
Author Organization [facility] and [facility] Address [address] [place] [address] Care Team Providers Care Mechanical Laboratory Technician Name Role Phone Caitlyn Bowie MD Primary Care Provider +1- [phone] Encounter Details Date Type Department Care Team (Late st Contact Info) Description 03/11/2015 Scanned Document [facility] Health Information Management [address] [place] [address] External, Provider Social History Tobacco Use Types [...] Description 09/30/2024 8:30 PM EDT Procedure visit [facility] [address] [place] [address] [address] [place] [address] 10/31/2024 1:00 PM EDT [facility] 240 [facility] Building [address] [place], [place] [address] Ronald Mills MD 240 [facility] A1 [place] [address] documented as of this encounter Procedures Procedure Name Priority Date/Time Associated Diagnosis Comments LAB SCAN Routine 03/11/2015 documented in this encounter Results * Lab Scan (03/11/2015) Blood specimen (specimen) us Provider External LAB BLOOD ORDERABLES Edited Re sult - Final [facility] [place], [place], [facility] documented in this encounter Visit Diagnoses Not on filedocumented in this encounter Additional Health Concerns Infection Onset Date Last Indicated Resolved Time COVID-19 03/05/2022 03/05/2022 03/15/2022 7:18 PM EDT documented as of this encounter Care Teams Mechanical Laboratory Technician Relationship Specialty Start Date End Date Caitlyn Bowie MD 3400 [facility] 1 [place] [address] PCP - General Internal Medicine 05/06/21 [place] Kelly MD Pulmonary Department 175 [facility], [address] [place] [address] Physician Pulmonary Disease 09/06/17 06/22/20 documented as of this encounter
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
--- OUTSIDE RECORDS SUMMARY | 2024-09-11 13:09 | XMS_ITS | Encounter Summary ---
Author Organization [facility] and [facility] Address [address] [place] [address] Care Team Providers Care Hot Metal Crane Operator Name Role Phone Caitlyn Bowie MD Primary Care Provider +1- [phone] Encounter Details Date Type Department Care Team (Late st Contact Info) Description 03/26/2015 Scanned Document Cardiovascular Medicine at [address] [place] [address] Norma Renee MD [address] [place] [phone] Social History Tobacco Use Types Packs/Day Years [...] Description 09/30/2024 8:30 PM EDT Procedure visit [facility] [address] [place] [address] [address] [place] [address] 10/31/2024 1:00 PM EDT Telemedicine Cancer Center at [facility] 240 [facility] [address] [place] [address] Ronald Mills MD 240 [facility] Max [address]1 [place] [address] documented as of this encounter Visit Diagnoses Not on filedocumented in this encounter Additional Health Concerns Infection Onset Date Last Indicated Resolved Time COVID-19 03/05/2022 03/05/2022 03/15/2022 7:18 PM EDT documented as of this encounter Care Teams Hot Metal Crane Operator Relationship Specialty Start Date End Date Caitlyn Bowie MD 3400 [facility] 1 [place] [address] PCP - General Internal Medicine 05/06/21 [place] Kelly MD Pulmonary Department 175 [facility], [address] [place] [address] Physician Pulmonary Disease 09/06/17 06/22/20 documented as of this encounter
--- OUTSIDE RECORDS SUMMARY | 2024-09-11 13:09 | XMS_ITS | Encounter Summary ---
Author Organization [facility] Address [address] [place] [address] Care Team Providers Care Propeller Layout Worker Name Role Phone Sharon Vides Primary Care Provider Brennan Castro MD Primary Care Provider Unavailab Hayden Montes MD Unavailable [phone] Pallavi Flood NP Unavailable [phone]- [phone] Caitlyn Bowie MD Primary Care Provider Johnathon shaver Encounter Details Date Type Department Care Team Description 12/30/2018 Pt. Non Urgent Medic al Question Pulmonology - [place] 175 [facility] [address] [place] [address] [place] Kelly MD Social History [...] on filedocumented in this encounter Care Teams Propeller Layout Worker Relationship Specialty Start Date End Date Sharon Vides PCP - General Internal Medicine 08/02/18 05/26/20 Brennan Burnett MD PCP - General Internal Medicine 05/27/20 12/07/21 Caitlyn Bowie MD [address] [place] [address] PCP - General Internal Medicine 12/08/21 Hayden Shah MD [address] [place] [phone] Specialist Cardiovascular Disease 09/01/20 Pallavi Flood NP [address] [place] [phone] Cardiology 09/01/20 documented as of this encounter
--- OUTSIDE RECORDS SUMMARY | 2024-09-11 13:09 | XMS_ITS | Encounter Summary ---
Author Organization [facility] and [facility] Address [address] [place] [address] Care Team Providers Care Telephone Solicitor Supervisor Name Role Phone Caitlyn Bowie MD Primary Care Provider +1- [phone] Encounter Details Date Type Department Care Team (Late st Contact Info) Description 05/01/2015 Scanned Document [facility] Health Information Management [address] [place] [address] External, Provider Social History Tobacco Use Types [...] Description 09/30/2024 8:30 PM EDT Procedure visit [facility] [address] [place] [address] [address] [place] [address] 10/31/2024 1:00 PM EDT [facility] [address] [facility] Building [address] [place], [place] [address] Ronald Mills MD 240 [facility] [address]1 [place] [address] documented as of this encounter Procedures Procedure [...] as of this encounter Care Teams Telephone Solicitor Supervisor Relationship Specialty Start Date End Date Caitlyn Bowie MD 3400 [facility] 1 [place] [address] PCP - General Internal Medicine 05/06/21 Henry Kelly MD Pulmonary Department 175 [facility], [address] [place] [address] Physician Pulmonary Disease 09/06/17 06/22/20 documented as of this encounter
--- OUTSIDE RECORDS SUMMARY | 2024-09-11 13:09 | XMS_ITS | Encounter Summary ---
Author Organization [facility] Address [address] [place] [address] Care Team Providers Care Senior Fire Protection Engineer Name Role Phone Caitlyn Bowie MD Primary Care Provider +1- [phone] Encounter Details Date Type Department Care Team (Late st Contact Info) Description 01/27/2018 Scanned Document [facility] Health Information Management [address] [place] [address] External, Provider Social History Tobacco Use Types [...] 09/30/2024 8:30 PM EDT Procedure visit [facility] [address] [place] [address] [address] [place] [address] 10/31/2024 1:00 PM EDT Telemedicine [facility] at [facility] 240 [facility] Building [address] [place], [place] [address] Ronald Mills MD 240 [facility] A1 [place] [address] documented as of this encounter [...] as of this encounter Care Teams Senior Fire Protection Engineer Relationship Specialty Start Date End Date Caitlyn Bowie MD 3400 [facility] 1 [place] [address] PCP - General Internal Medicine 05/06/21 Henry Kelly MD Pulmonary Department 175 [facility], [address] [place] [address] Physician Pulmonary Disease 09/06/17 06/22/20 documented as of this encounter
--- OUTSIDE RECORDS SUMMARY | 2024-09-11 13:09 | XMS_ITS | Encounter Summary ---
Author Organization [facility] and [facility] Address [address] [place] [address] Care Team Providers Care Manufacturing Technician Name Role Phone Caitlyn Bowie MD Primary Care Provider +1- [phone] Encounter Details Date Type Department Care Team (Late st Contact Info) Description 01/27/2018 Scanned Document [facility] Health Information Management [address] [place] [address] External, Provider Social History Tobacco Use Types [...] Description 09/30/2024 8:30 PM EDT Procedure visit [facility] [address] [place] [address] [address] [place] [address] 10/31/2024 1:00 PM EDT Telemedicine [facility] at [facility] 240 [facility] Building [address] [place], [place] [address] Ronald Mills MD 240 [facility] A1 [place] [address] documented as of this encounter Visit Diagnoses Not on filedocumented in this encounter Additional Health Concerns Infection Onset Date Last Indicated Resolved Time COVID-19 03/05/2022 03/05/2022 03/15/2022 7:18 PM EDT documented as of this encounter Care Teams Manufacturing Technician Relationship Specialty Start Date End Date Caitlyn Bowie MD 3400 [facility] 1 [place] [address] PCP - General Internal Medicine 05/06/21 Henry Kelly MD Pulmonary Department 175 [facility], [address] [place] [address] Physician Pulmonary Disease 09/06/17 06/22/20 documented as of this encounter
--- OUTSIDE RECORDS SUMMARY | 2024-09-11 13:09 | XMS_ITS | Encounter Summary ---
Author Organization [facility] and [facility] Address [address] [place] [address] Care Team Providers Care Behavioral Science Chair Name Role Phone Caityln Bowie MD Primary Care Provider +1- [phone] Encounter Details Date Type Department Care Team (Late st Contact Info) Description 01/26/2018 Scanned Document [facility] Health Information Management [address] [place] [address] External, Provider Social History Tobacco Use Types [...] Description 09/30/2024 8:30 PM EDT Procedure visit [facility] [address] [place] [address] [address] [place] [address] 10/31/2024 1:00 PM EDT Telemedicine [facility] 240 [facility] Building [address] [place], [place] [address] Ronald Mills MD 240 [facility] A1 [place] [address] documented as of this encounter [...] documented as of this encounter Care Teams Behavioral Science Chair Relationship Specialty Start Date End Date Caitlyn Bowie MD 3400 [facility] 1 [place] [address] PCP - General Internal Medicine 05/06/21 Henry Kelly MD Pulmonary Department 175 [facility], [address] [place] [address] Physician Pulmonary Disease 09/06/17 06/22/20 documented as of this encounter
--- OUTSIDE RECORDS SUMMARY | 2024-09-11 13:09 | XMS_ITS | Encounter Summary ---
Author Organization [facility] and [facility] Address [address] [place] [address] Care Team Providers Care Eeg Tech Name Role Phone Caitlyn Bowie MD Primary Care Provider +1- [phone] Encounter Details Date Type Department Care Team (Late st Contact Info) Description 03/13/2015 Scanned Document [facility] Health Information Management [address] [place] [phone] External, Provider Social History Tobacco Use Types [...] EDT Procedure visit [facility] [address] [place] [address] [address] [place] [address] 10/31/2024 1:00 PM EDT Telemedicine [facility] at [facility] 240 [facility] [address] [place], [place] [address] Ronald Mills MD 240 [facility] A1 [place] [address] documented as of this encounter Procedures Procedure Name Priority Date/Time Associated Diagnosis Comments LAB SCAN Routine 02/16/2015 LAB SCAN Routine 02/16/2015 documented in this encounter Results * Lab Scan (02/16/2015) Blood specimen (specimen) Provider External LAB BLOOD ORDERABLES Final Res ult Performing Organization Address [facility] Co de Phone Number [facility] * Lab Scan (02/16/2015) Blood specimen (specimen) Provider External LAB BLOOD ORDERABLES Final Res ult Performing Organization Address [facility] Co de Phone Number [facility] documented in this encounter Visit Diagnoses Not on filedocumented in this encounter Additional Health Concerns Infection Onset Date Last Indicated Resolved Time COVID-19 03/05/2022 03/05/2022 03/15/2022 7:18 PM EDT documented as of this encounter Care Teams Eeg Tech Relationship Specialty Start Date End Date Caitlyn Bowie MD 3400 [facility] 1 [place] [address] PCP - General Internal Medicine 05/06/21 Henry Kelly MD Pulmonary Department 175 [facility], [address] [place] [address] Physician Pulmonary Disease 09/06/17 06/22/20 documented as of this encounter
--- OUTSIDE RECORDS SUMMARY | 2024-09-11 13:09 | XMS_ITS | Encounter Summary ---
Author Organization [facility] Address [address] [place] [address] Care Team Providers Care Credit And Collections Analyst Name Role Phone Sharon Vides Primary Care Provider Brennan Castro MD Primary Care Provider Unavailab Hayden Montes MD Unavailable [phone] Pallavi Flood NP Unavailable +1- [phone] Caitlyn Bowie MD Primary Care Provider Johnathon shaver Encounter Details Date Type Department Care Team Description 09/01/2018 Release of Information Medical Records [address] [place] [address] Abstract, Provider Social History Tobacco Use Types [...] on filedocumented in this encounter Care Teams Credit And Collections Analyst Relationship Specialty Start Date End Date Sharon Vides PCP - General Internal Medicine 08/02/18 05/26/20 Brennan Burnett MD PCP - General Internal Medicine 05/27/20 12/07/21 Caitlyn Bowie MD [address] [place] [address] PCP - General Internal Medicine 12/08/21 Hayden Shah MD [address] [place] [address] Specialist Cardiovascular Disease 09/01/20 Pallavi Flood NP [address] [place] [address] Cardiology 09/01/20 documented as of this encounter
--- OUTSIDE RECORDS SUMMARY | 2024-09-11 13:09 | XMS_ITS | Encounter Summary ---
Author Organization [facility] Address [address] [place] [address] Care Team Providers Care Marketing And Promotions Manager Name Role Phone Sharon Vides Primary Care Provider Brennan Castro MD Primary Care Provider Unavailab Hayden Montes MD Unavailable Pallavi Flood NP Unavailable [phone]- [phone] Caitlyn Bowie MD Primary Care Provider Johnathon shaver Encounter Details Date Type Department Care Team Description 08/28/2018 Dramatic Agent Report Medical Records [address] [place] [address] Abstract, Provider Social History Tobacco Use Types [...] filedocumented in this encounter Care Teams Marketing And Promotions Manager Relationship Specialty Start Date End Date Sharon Vides PCP - General Internal Medicine 08/02/18 05/26/20 Brennan Burnett MD PCP - General Internal Medicine 05/27/20 12/07/21 Caitlyn Bowie MD [address] [place] [address] PCP - General Internal Medicine 12/08/21 Hayden Shah MD [address] [place] [address] Specialist Cardiovascular Disease 09/01/20 Pallavi Flood NP [address] [place] [address] Cardiology 09/01/20 documented as of this encounter
--- OUTSIDE RECORDS SUMMARY | 2024-09-11 13:09 | XMS_ITS | Encounter Summary ---
Author Organization [facility] and [facility] Address [address] [place] [address] Care Team Providers Care Head Of Research & Insights Name Role Phone Caitlyn Bowie MD Primary Care Provider +1- [phone] Encounter Details Date Type Department Care Team (Late st Contact Info) Description 07/31/2015 Scanned Document [facility] Health Information Management [address] [place] [address] External, Provider Social History Tobacco Use Types [...] Description 09/30/2024 8:30 PM EDT Procedure visit [facility] [address] [place] [address] [address] [place] [address] 10/31/2024 1:00 PM EDT Telemedicine [facility] 240 [facility] Building [address] [place], [place] [address] Ronald Mills MD 240 [facility] A1 [place] [address] documented as of this encounter Procedures Procedure Name Priority Date/Time Associated Diagnosis Comments NUC MED/PET RESULT SCAN Routine 07/31/2015 documented in this encounter Results * Nuc Med/PET Result Scan (07/31/2015) us Provider External IMG SCAN REPORTS Edited Result - Final [facility] documented in this encounter Visit Diagnoses Not on filedocumented in this encounter Additional Health Concerns Infection Onset Date Last Indicated Resolved Time COVID-19 03/05/2022 03/05/2022 03/15/2022 7:18 PM EDT documented as of this encounter Care Teams Head Of Research & Insights Relationship Specialty Start Date End Date Caitlyn Bowie MD 3400 [facility] 1 [place] [address] PCP - General Internal Medicine 05/06/21 Henry Kelly MD Pulmonary Department 175 [facility], [address] [place] [address] Physician Pulmonary Disease 09/06/17 06/22/20 documented as of this encounter
--- OUTSIDE RECORDS SUMMARY | 2024-09-11 13:09 | XMS_ITS | Encounter Summary ---
Author Organization [facility] Address [address] [place] [address] Care Team Providers Care Sales & Service Associate Name Role Phone Sharon Vides Primary Care Provider Brennan Castro MD Primary Care Provider Unavailab Hayden Montes MD Unavailable [phone] Pallavi Flood NP Unavailable [phone]- [phone] Caitlyn Bowie MD Primary Care Provider Johnathon shaver Encounter Details Date Type Department Care Team Description 12/28/2018 Orders Only Pulmonology - [address] [place] [address] Henry Kelly MD Chest pain, [...] Primary documented in this encounter Care Teams Sales & Service Associate Relationship Specialty Start Date End Date Sharon Vides PCP - General Internal Medicine 08/02/18 05/26/20 Brennan Burnett MD PCP - General Internal Medicine 05/27/20 12/07/21 [address] [place] [address] PCP - General Internal Medicine 12/08/21 Hayden Shah MD [address] [place] [address] Specialist Cardiovascular Disease 09/01/20 Pallavi Flood NP [address] [place] [phone] Cardiology 09/01/20 documented as of this encounter
--- OUTSIDE RECORDS SUMMARY | 2024-09-11 13:09 | XMS_ITS | Encounter Summary ---
Author Organization [facility] and [facility] Address [address] [place] [address] Care Team Providers Care Medicare Coordinator Name Role Phone Caitlyn Bowie MD Primary Care Provider +1- [phone] Encounter Details Date Type Department Care Team ([facility] st Contact Info) Description 08/26/2014 Documentation [facility] [address] [place] [address] Shilpi Ibarra [address] [place] [address] Social History Tobacco Use Types Packs/Day Years [...] from the original note were not included. [facility] Progress Note This is a 69 y.o. female who was provided services by [facility]. Service Provided By:: Shilpi Ibarra Patient Status: return Length of Appointment: 60 minutes documented in this encounter Plan of Treatment Upcoming Encounters Date Type Department Care Team (Late st Contact Info) Description 09/30/2024 8:30 PM EDT Procedure visit [facility] [address] [facility] [address] [place] [address] 10/31/2024 1:00 PM EDT Telemedicine [facility] at [facility] 240 [facility] Building [address] [place] [address] Ronald Mills MD 240 [facility] Max [address]1 [place] [address] documented as of this encounter Visit Diagnoses Not on filedocumented in this encounter Additional Health Concerns Infection Onset Date Last Indicated Resolved Time COVID-19 03/05/2022 03/05/2022 03/15/2022 7:18 PM EDT documented as of this encounter Care Teams Medicare Coordinator Relationship Specialty Start Date End Date Caitlyn Bowie MD 34[address] [facility] 1 [place] [address] PCP - General Internal Medicine 05/06/21 Henry Kelly MD Pulmonary Department 175 [facility], [address] [place] [address] Physician Pulmonary Disease 09/06/17 06/22/20 documented as of this encounter
--- OUTSIDE RECORDS SUMMARY | 2024-09-11 13:09 | XMS_ITS | Encounter Summary ---
Author Organization [facility] Address [address] [place] [address] Care Team Providers Care Cyber Forensic Specialist Name Role Phone Caitlyn Bowie MD Primary Care Provider [phone]- [phone] Encounter Details Date Type Department Care Team (Late st Contact Info) Description 02/02/2018 Scanned Document [facility] Health Information Management [address] [place] [address] External, Provider Social History Tobacco Use Types [...] Description 09/30/2024 8:30 PM EDT Procedure visit [facility] [address] [place] [address] [address] [place] [address] 10/31/2024 1:00 PM EDT [facility] 240 [facility] Building [address] [place], [place] [address] Ronald Mills MD 240 [facility] A1 [place] [address] documented as of this encounter [...] as of this encounter Care Teams Cyber Forensic Specialist Relationship Specialty Start Date End Date Caitlyn Bowie MD 3400 [facility] 1 [place] [address] PCP - General Internal Medicine 05/06/21 Henry Kelly MD Pulmonary Department 175 [facility], [address] [place] [address] Physician Pulmonary Disease 09/06/17 06/22/20 documented as of this encounter
--- OUTSIDE RECORDS SUMMARY | 2024-09-11 13:09 | XMS_ITS | Encounter Summary ---
Author Organization [facility] Address [address] [place] [address] Care Team Providers Care Organic Search Lead Name Role Phone Caitlyn Bowie MD Primary Care Provider +1- [phone] Encounter Details Date Type Department Care Team (Late st Contact Info) Description 01/13/2021 Scanned Document Cancer Center at [address] [address] Ronald Mills MD [address] [place] [address] Social History Tobacco Use Types Packs/Day [...] 09/30/2024 8:30 PM EDT Procedure visit [facility] [address] [place] [address] [place] [address] 10/31/2024 1:00 PM EDT Telemedicine Cancer Center at [address] [place], [place] [address] Ronald Mills MD 240 [facility] A1 [place] [address] documented as of this encounter [...] documented as of this encounter Care Teams Organic Search Lead Relationship Specialty Start Date End Date Caitlyn Bowie MD [address] [address] PCP - General Internal Medicine 05/06/21 documented as of this encounter
--- OUTSIDE RECORDS SUMMARY | 2024-09-11 13:09 | XMS_ITS | Encounter Summary ---
Author Organization [facility] and [facility] Address [address] [place] [address] Care Team Providers Care Air Conditioning Mechanic Name Role Phone Caitlyn Bowie MD Primary Care Provider +1- [phone] Encounter Details Date Type Department Care Team (Late st Contact Info) Description 11/07/2014 Scanned Document [facility] Health Information Management [address] [place] [address] External, Provider Social History Tobacco Use Types [...] EDT Procedure visit [facility] [address] [place] [address] [address] [place] [address] 10/31/2024 1:00 PM EDT Tele[facility]icine [facility] 240 [facility] Building [address] [place], [place] [address] Ronald Mills MD 240 [facility] A1 [place] [address] documented as of this encounter Visit Diagnoses Not on filedocumented in this encounter Additional Health Concerns Infection Onset Date Last Indicated Resolved Time COVID-19 03/05/2022 03/05/2022 03/15/2022 7:18 PM EDT documented as of this encounter Care Teams Air Conditioning Mechanic Relationship Specialty Start Date End Date Caitlyn Bowie MD 3400 [facility] Max 1 [place] [address] PCP - General Internal Medicine 05/06/21 Henry Kelly MD Pulmonary Department 175 [facility], [address] [place] [address] Physician Pulmonary Disease 09/06/17 06/22/20 documented as of this encounter
--- OUTSIDE RECORDS SUMMARY | 2024-09-11 13:09 | XMS_ITS | Encounter Summary ---
Author Organization [facility] and [facility] Address [address] [place] [address] Care Team Providers Care Hand Plate Stacker Name Role Phone Caitlyn Bowie MD Primary Care Provider +1- [phone] Encounter Details Date Type Department Care Team (Late st Contact Info) Description 11/09/2020 Scanned Document [facility] [address] [place] [address] System, Provider Not In Social History Tobacco [...] Description 09/30/2024 8:30 PM EDT Procedure visit [facility] [address] [place] [address] [address] [place] [address] 10/31/2024 1:00 PM EDT Telemedicine [facility] Center at [facility] 240 [facility] [address] [place] [address] Ronald Mills MD 240 [facility] A1 [place] [address] documented as of this encounter Visit Diagnoses Not on filedocumented in this encounter Additional Health Concerns Infection Onset Date Last Indicated Resolved Time COVID-19 03/05/2022 03/05/2022 03/15/2022 7:18 PM EDT Assessment Noted Time PHQ-9 Depression Total Score: 2 11/07/19 19 2:06 PM EDT documented as of this encounter Care Teams Hand Plate Stacker Relationship Specialty Start Date End Date Caitlyn Bowie MD [address] [address] PCP - General Internal Medicine 05/06/21 documented as of this encounter
--- OUTSIDE RECORDS SUMMARY | 2024-09-11 13:09 | XMS_ITS | Encounter Summary ---
Author Organization [facility] Address [address] [place] [address] Care Team Providers Care Clubhouse Manager Name Role Phone Sharon Vides Primary Care Provider Brennan Castro MD Primary Care Provider Unavailab Hayden Montes MD Unavailable [phone] Pallavi Flood NP Unavailable +[phone]- [phone] Caitlyn Bowie MD Primary Care Provider Johnathon shaver Encounter Details Date Type Department Care Team Description 12/16/2018 [facility] Medical Records [address] [place] [address] Abstract, Provider Social History Tobacco Use Types [...] on filedocumented in this encounter Care Teams Clubhouse Manager Relationship Specialty Start Date End Date Sharon Vides PCP - General Internal Medicine 08/02/18 05/26/20 Brennan Burnett MD PCP - General Internal Medicine 05/27/20 12/07/21 Caitlyn Bowie MD [address] [place] [address] PCP - General Internal Medicine 12/08/21 Hayden Shah MD [address] [place] [address] Specialist Cardiovascular Disease 09/01/20 Pallavi Flood NP [address] [place] [address] Cardiology 09/01/20 documented as of this encounter
--- OUTSIDE RECORDS SUMMARY | 2024-09-11 13:09 | XMS_ITS | Encounter Summary ---
Author Organization [facility] Address [address] [place] [address] Care Team Providers Care Coating Mixer Supervisor Name Role Phone Sharon Vides Primary Care Provider Brennan Castro MD Primary Care Provider Unavailab Hayden Montes MD Unavailable [phone] Pallavi Flood NP Unavailable [phone]- [phone] Caitlyn Bowie MD Primary Care Provider Johnathon shaver Encounter Details Date Type Department Care Team Description 01/26/2019 [facility] Medical Records [address] [place] [address] Landen Aaron DO Social History Tobacco Use [...] on filedocumented in this encounter Care Teams Coating Mixer Supervisor Relationship Specialty Start Date End Date Sharon Vides PCP - General Internal Medicine 08/02/18 05/26/20 Brennan Burnett MD PCP - General Internal Medicine 05/27/20 12/07/21 Caitlyn Bowie MD [address] [place] [address] PCP - General Internal Medicine 12/08/21 Hayden Shah MD [address] [place], [place] [phone] Specialist Cardiovascular Disease 09/01/20 Pallavi Flood NP [address] [place], [place] [address] Cardiology 09/01/20 documented as of this encounter
--- OUTSIDE RECORDS SUMMARY | 2024-09-11 13:09 | XMS_ITS | Encounter Summary ---
Author Organization [facility] Address [address] [place] [address] Care Team Providers Care Sleeve Tailor Name Role Phone Caitlyn Bowie MD Primary Care Provider +1- [phone] Encounter Details Date Type Department Care Team (Late st Contact Info) Description 06/25/2015 Scanned Document [facility] Health Information Management [address] [place] [address] External, Provider Social History Tobacco Use Types [...] Description 09/30/2024 8:30 PM EDT Procedure visit [facility] [address] [place] [address] [address] [place] [address] 10/31/2024 1:00 PM EDT Telemedicine Cancer Center at [facility] 240 [facility] Building [address] [place], [place] [address] Ronald Mills MD 240 [facility] [address]1 [place] [address] documented as of this encounter Visit Diagnoses Not on filedocumented in this encounter Additional Health Concerns Infection Onset Date Last Indicated Resolved Time COVID-19 03/05/2022 03/05/2022 03/15/2022 7:18 PM EDT documented as of this encounter Care Teams Sleeve Tailor Relationship Specialty Start Date End Date Caitlyn Bowie MD 3400 [facility] [address] [place] [address] PCP - General Internal Medicine 05/06/21 Henry Kelly MD Pulmonary Department 175 [facility], [address] [place] [address] Physician Pulmonary Disease 09/06/17 06/22/20 documented as of this encounter
--- OUTSIDE RECORDS SUMMARY | 2024-09-11 13:09 | XMS_ITS | Encounter Summary ---
Author Organization [facility] Address [address] [place] [address] Care Team Providers Care Certified Home Health Aide Name Role Phone Sharon Vides Primary Care Provider Brennan Castro MD Primary Care Provider Unavailab Hayden Montes MD Unavailable [phone] Pallavi Flood NP Unavailable [phone]- [phone] Caitlyn Bowie MD Primary Care Provider Johnathon shaver Encounter Details Date Type Department Care Team Description 10/01/2018 Orders Only Pulmonology - [address] [place] [address] Henry Kelly MD Mixed simple [...] bronchitis documented in this encounter Care Teams Certified Home Health Aide Relationship Specialty Start Date End Date Sharon Vides PCP - General Internal Medicine 08/02/18 05/26/20 Brennan Burnett MD PCP - General Internal Medicine 05/27/20 12/07/21 Caitlyn Bowie MD [address] [place] [address] PCP - General Internal Medicine 12/08/21 Hayden Shah MD [address] [place] [address] Specialist Cardiovascular Disease 09/01/20 Pallavi Flood NP [address] [place] [address] Cardiology 09/01/20 documented as of this encounter
--- OUTSIDE RECORDS SUMMARY | 2024-09-11 13:10 | XMS_ITS | Encounter Summary ---
Author Organization [facility] Address [address] [place] [address] Care Team Providers Care Manager Corporate Strategy Name Role Phone Caitlyn Bowie MD Primary Care Provider +1- [phone] Encounter Details Date Type Department Care Team (Late st Contact Info) Description 04/16/2018 Scanned Document [facility] Health Information Management [address] [place] [address] External, Provider Social History Tobacco Use Types [...] Description 09/30/2024 8:30 PM EDT Procedure visit [facility] [address] [place] [address] [address] [place] [address] 10/31/2024 1:00 PM EDT Telemedicine [facility] at [facility] [address] [facility] [address] [place], [place] [phone] Ronald Mills MD 240 [facility] [address] [place] [address] documented as of this encounter Visit Diagnoses Not on filedocumented in this encounter Additional Health Concerns Infection Onset Date Last Indicated Resolved Time COVID-19 03/05/2022 03/05/2022 03/15/2022 7:18 PM EDT documented as of this encounter Care Teams Manager Corporate Strategy Relationship Specialty Start Date End Date Caitlyn Bowie MD 3400 [facility] 1 [place] [address] PCP - General Internal Medicine 05/06/21 Henry Kelly MD Pulmonary Department 175 [facility], [address] [place] [address] Physician Pulmonary Disease 09/06/17 06/22/20 documented as of this encounter
--- OUTSIDE RECORDS SUMMARY | 2024-09-11 13:10 | XMS_ITS | Encounter Summary ---
Author Organization [facility] Address [address] [place] [address] Care Team Providers Care Dermatology Physician Assistant Name Role Phone Caitlyn Bowie MD Primary Care Provider +1- [phone] Encounter Details Date Type Department Care Team (Late st Contact Info) Description 10/15/2018 Scanned Document [facility] Health Information Management [address] [place] [address] External, Provider Social History Tobacco Use Types [...] Procedure visit [facility] [address] [place] [address] [address] [place] [address] 10/31/2024 1:00 PM EDT Telemedicine Cancer Center at [facility] 240 [facility] Building [address] [place], [place] [address] Ronald Mills MD 240 [facility] [address] [place] [address] documented as of this encounter Visit Diagnoses Not on filedocumented in this encounter Additional Health Concerns Infection Onset Date Last Indicated Resolved Time COVID-19 03/05/2022 03/05/2022 03/15/2022 7:18 PM EDT documented as of this encounter Care Teams Dermatology Physician Assistant Relationship Specialty Start Date End Date Caitlyn Bowie MD 3400 [facility] 1 [place] [address] PCP - General Internal Medicine 05/06/21 Henry Kelly MD Pulmonary Department 175 [facility], [address] [place] [address] Physician Pulmonary Disease 09/06/17 06/22/20 documented as of this encounter
--- OUTSIDE RECORDS SUMMARY | 2024-09-11 13:10 | XMS_ITS | Encounter Summary ---
Author Organization [facility] Address [address] [place] [address] Care Team Providers Care Freelance Copywriter Name Role Phone Caitlyn Bowie MD Primary Care Provider +1- [phone] Reason for Visit * Reason Comments Advice Only Encounter Details Date Type Department Care Team ([facility] st Contact Info) Description 06/01/2021 Telephone [facility] at [address] [phone] Ronald Mills MD [address] [place] [phone] Advice Only Social History Tobacco Use [...] added that she's called before and sent STYLIGHT messages but hasn't received a reply,[phone]. documented in this encounter Plan of Treatment Upcoming Encounters Date Type Department Care Team (Late st Contact Info) Description 09/30/2024 8:30 PM EDT Procedure visit [facility] [address] [place] [address] [address] [place] [address] 10/31/2024 1:00 PM EDT Telemedicine [facility] 240 [facility] [address] [place], [place] [address] Ronald Mills MD 240 [facility] A1 [place] [address] documented as of this encounter Visit Diagnoses Not on filedocumented in this encounter Additional Health Concerns Infection Onset Date Last Indicated Resolved Time COVID-19 03/05/2022 03/05/2022 03/15/2022 7:18 PM EDT Assessment Noted Time PHQ-9 Depression Total Score: 2 11/07/19 19 2:06 PM EDT documented as of this encounter Care Teams Freelance Copywriter Relationship Specialty Start Date End Date Caitlyn Bowie MD [address] [address] PCP - General Internal Medicine 05/06/21 documented as of this encounter
--- OUTSIDE RECORDS SUMMARY | 2024-09-11 13:10 | XMS_ITS | Encounter Summary ---
Author Organization [facility] Address [address] [place] [address] Care Team Providers Care Newspaper Managing Editor Name Role Phone Caitlyn Bowie MD Primary Care Provider +1- [phone] Encounter Details Date Type Department Care Team (Late st Contact Info) Description 06/07/2021 Scanned Document [facility]-Oncology Program at [address] [address] Norma Renee MD [address] [place] [address] 2 [place] [phone] Social History Tobacco Use Types Packs/Day Years [...] Description 09/30/2024 8:30 PM EDT Procedure visit [facility] [address] [place] [address] 10/31/2024 1:00 PM EDT Telemedicine Cancer Center at [address] [place], [place] [address] Ronald Mills MD 240 [facility] [address] [place] [address] documented as of this encounter Visit Diagnoses Not on filedocumented in this encounter Additional Health Concerns Infection Onset Date Last Indicated Resolved Time COVID-19 03/05/2022 03/05/2022 03/15/2022 7:18 PM EDT Assessment Noted Time PHQ-9 Depression Total Score: 2 11/07/19 19 2:06 PM EDT documented as of this encounter Care Teams Newspaper Managing Editor Relationship Specialty Start Date End Date Caitlyn Bowie MD [address] [address] PCP - General Internal Medicine 05/06/21 documented as of this encounter
--- OUTSIDE RECORDS SUMMARY | 2024-09-11 13:10 | XMS_ITS | Encounter Summary ---
Author Organization [facility] Address [address] [place] [address] Care Team Providers Care Handle Maker Name Role Phone Caitlyn Bowie MD Primary Care Provider +1- [phone] Encounter Details Date Type Department Care Team (Late st Contact Info) Description 10/08/2021 Scanned Document INTERFACE DEFAULT [address] [place] [address] System, Provider Not In Social History Tobacco [...] EDT Procedure visit [facility] [address] [place] [address] [address] [place] [address] 10/31/2024 1:00 PM EDT Telemedicine Cancer [facility] at [facility] 240 [facility] [address] [place] [address] Ronald Mills MD 240 [facility] A1 [place] [address] documented as of this encounter Procedures Procedure [...] documented as of this encounter Care Teams Handle Maker Relationship Specialty Start Date End Date Caitlyn Bowie MD [facility] [address] [address] PCP - General Internal Medicine 05/06/21 documented as of this encounter
--- OUTSIDE RECORDS SUMMARY | 2024-09-11 13:10 | XMS_ITS | Clinical Summary ---
Author Organization [facility] Address [address] [place] [address] Care Team Providers Care Planting Supervisor Name Role Phone Caitlyn Bowie MD Primary Care Provider +1- [phone] Allergies Active Allergy Reactions Criticality Noted Date [...] Breath High 05/09/2008 Bronchospasm or Wheezing Ipratropium Sigel Unknown/Patient and Family Unable to Define Medium [...] 1 capsule by mouth daily. Active B Qrfkqoa-P-Yftkq Acid (STRESS 500 B-COMPLEX PO) Take 1 [...] age to complete this topic Care Teams Planting Supervisor Relationship Specialty Start Date End Date Caitlyn Bowie MD [facility] [place] [address] PCP - General Internal Medicine 03/20/23
--- OUTSIDE RECORDS SUMMARY | 2024-09-11 13:10 | XMS_ITS | Encounter Summary ---
Author Organization [facility] Address [address] [place] [phone] Care Team Providers Care Gore Maker Name Role Phone Caitlyn Bowie MD Primary Care Provider +1- [phone] Encounter Details Date Type Department Care Team (Late st Contact Info) Description 06/08/2021 Scanned Document INTERFACE DEFAULT [address] [place] [address] System, Provider Not In Social History Tobacco [...] Description 09/30/2024 8:30 PM EDT Procedure visit [facility] [address] [place] [address] [address] [place] [address] 10/31/2024 1:00 PM EDT Telemedicine Cancer Center at [facility] [address] [facility] [address] [place] [address] Ronald Mills MD 240 [facility] [address]1 [place] [address] documented as of this encounter Procedures Procedure [...] documented as of this encounter Care Teams Gore Maker Relationship Specialty Start Date End Date Caitlyn Bowie MD [address] [address] PCP - General Internal Medicine 05/06/21 documented as of this encounter
--- OUTSIDE RECORDS SUMMARY | 2024-09-11 13:10 | XMS_ITS | Encounter Summary ---
Author Organization [facility] Address [address] [place] [address] Care Team Providers Care Gold Leaf Laborer Name Role Phone Caitlyn Bowie MD Primary Care Provider +1- [phone] Encounter Details Date Type Department Care Team (Late st Contact Info) Description 11/18/2021 Scanned Document INTERFACE DEFAULT [address] [place] [address] System, Provider Not In Social History Tobacco [...] Description 09/30/2024 8:30 PM EDT Procedure visit [facility] [address] [place] [address] [address] [place] [address] 10/31/2024 1:00 PM EDT Telemedicine Cancer Center at [facility] 240 [facility] Building [address] [place] [address] Ronald Mills MD 240 [facility] A1 [place] [address] documented as of this encounter Visit Diagnoses Not on filedocumented in this encounter Additional Health Concerns Infection Onset Date Last Indicated Resolved Time COVID-19 03/05/2022 03/05/2022 03/15/2022 7:18 PM EDT Assessment Noted Time PHQ-9 Depression Total Score: 2 11/07/19 19 2:06 PM EDT documented as of this encounter Care Teams Gold Leaf Laborer Relationship Specialty Start Date End Date Caitlyn Bowie MD [address] [address] PCP - General Internal Medicine 05/06/21 documented as of this encounter
--- OUTSIDE RECORDS SUMMARY | 2024-09-11 13:10 | XMS_ITS | Encounter Summary ---
Author Organization [facility] Address [address] [place] [address] Care Team Providers Care Proprietary Trader Name Role Phone Caitlyn Bowie MD Primary Care Provider +1- [phone] Encounter Details Date Type Department Care Team (Late st Contact Info) Description 03/14/2018 Scanned Document [facility] Health Information Management [address] [place] [address] External, Provider Social History Tobacco Use Types [...] Description 09/30/2024 8:30 PM EDT Procedure visit [facility] [address] [place] [address] [address] [place] [address] 10/31/2024 1:00 PM EDT Telemedicine Cancer Center at [facility] 240 [facility] Building [address] [place], [place] [address] Ronald Mills MD 240 [facility] A1 [place] [address] documented as of this encounter [...] documented as of this encounter Care Teams Proprietary Trader Relationship Specialty Start Date End Date Caitlyn Bowie MD 3400 [facility] 1 [place] [address] PCP - General Internal Medicine 05/06/21 Henry Kelly MD Pulmonary Department 175 [facility], [address] [place] [address] Physician Pulmonary Disease 09/06/17 06/22/20 documented as of this encounter
--- OUTSIDE RECORDS SUMMARY | 2024-09-11 13:10 | XMS_ITS | Encounter Summary ---
Author Organization [facility] Address [address] [place] [address] Care Team Providers Care Roller Machine Operator Name Role Phone Caitlyn Bowie MD Primary Care Provider +1- [phone] Encounter Details Date Type Department Care Team (Late st Contact Info) Description 04/27/2021 Scanned Document INTERFACE DEFAULT [address] [place] [address] System, Provider Not In Social History Tobacco [...] Description 09/30/2024 8:30 PM EDT Procedure visit [facility] [address] [place] [address] [address] [place] [address] 10/31/2024 1:00 PM EDT Telemedicine Cancer Center at [facility] 240 [facility] Building [address] [place] [address] Ronald Mills MD 240 [facility] A1 [place] [address] documented as of this encounter Procedures Procedure [...] as of this encounter Care Teams Roller Machine Operator Relationship Specialty Start Date End Date Caitlyn Bowie MD [address] [address] PCP - General Internal Medicine 05/06/21 documented as of this encounter
--- OUTSIDE RECORDS SUMMARY | 2024-09-11 13:10 | XMS_ITS | Encounter Summary ---
Author Organization [facility] Address [address] [place] [address] Care Team Providers Care Varnish Finisher Name Role Phone Caitlyn Bowie MD Primary Care Provider +1- [phone] Encounter Details Date Type Department Care Team (Late st Contact Info) Description 04/28/2021 Scanned Document INTERFACE DEFAULT [address] [place] [address] System, Provider Not In Social History Tobacco [...] Description 09/30/2024 8:30 PM EDT Procedure visit [facility] [address] [place] [address] [address] [place] [address] 10/31/2024 1:00 PM EDT Telemedicine Cancer Center at [facility] 240 [facility] Building [address] [place] [address] Ronald Mills MD 240 [facility] A1 [place] [address] documented as of this encounter Procedures Procedure [...] documented as of this encounter Care Teams Varnish Finisher Relationship Specialty Start Date End Date Caitlyn Bowie MD [facility] [address] [address] PCP - General Internal Medicine 05/06/21 documented as of this encounter
--- OUTSIDE RECORDS SUMMARY | 2024-09-11 13:10 | XMS_ITS | Encounter Summary ---
Author Organization [facility] and [facility] Address [address] [place] [address] Care Team Providers Care Decorator Store Name Role Phone Caitlyn Bowie MD Primary Care Provider +1- [phone] Encounter Details Date Type Department Care Team (Late st Contact Info) Description 09/23/2021 Scanned Document INTERFACE DEFAULT [address] [place] [address] System, Provider Not In Social History Tobacco [...] EDT Procedure visit [facility] [address] [place] [address] [address] [place] [address] 10/31/2024 1:00 PM EDT Telemedicine Cancer Center at [facility] 240 [facility] [address] [place] [address] Ronald Mills MD 240 [facility] A1 [place] [address] documented as of this encounter Procedures Procedure [...] documented as of this encounter Care Teams Decorator Store Relationship Specialty Start Date End Date Caitlyn Bowie MD [address] [address] PCP - General Internal Medicine 05/06/21 documented as of this encounter
--- OUTSIDE RECORDS SUMMARY | 2024-09-11 13:10 | XMS_ITS | Encounter Summary ---
Author Organization [facility] and [facility] Address [address] [place] [address] Care Team Providers Care Cylinder Valve Repairer Name Role Phone Caitlyn Bowie MD Primary Care Provider +1- [phone] Encounter Details Date Type Department Care Team (Late st Contact Info) Description 06/26/2018 Scanned Document [facility] Health Information Management [address] [place] [address] External, Provider Social History Tobacco Use Types [...] Description 09/30/2024 8:30 PM EDT Procedure visit [facility] [address] [place] [address] [address] [place] [address] 10/31/2024 1:00 PM EDT Telemedicine [facility] at [facility] 240 [facility] Building [address] [place], [place] [address] Ronald Mills MD 240 [facility] A1 [place] [address] documented as of this encounter Visit Diagnoses Not on filedocumented in this encounter Additional Health Concerns Infection Onset Date Last Indicated Resolved Time COVID-19 03/05/2022 03/05/2022 03/15/2022 7:18 PM EDT documented as of this encounter Care Teams Cylinder Valve Repairer Relationship Specialty Start Date End Date Caitlyn Bowie MD 3400 [facility] 1 [place] [address] PCP - General Internal Medicine 05/06/21 Henry Kelly MD Pulmonary Department 175 [facility], [address] [place] [address] Physician Pulmonary Disease 09/06/17 06/22/20 documented as of this encounter
--- OUTSIDE RECORDS SUMMARY | 2024-09-11 13:10 | XMS_ITS | Encounter Summary ---
Author Organization [facility] and [facility] Address [address] [place] [phone] Care Team Providers Care Supervisor Diagnostic Name Role Phone Caitlyn Bowie MD Primary Care Provider +1- [phone] Encounter Details Date Type Department Care Team (Late st Contact Info) Description 06/07/2021 Scanned Document Onco-Oncology Program at [address] [address] Norma Renee MD [address] [place] [address] 2 [place] [address] Social History Tobacco Use Types Packs/Day Years [...] Description 09/30/2024 8:30 PM EDT Procedure visit [facility] [address] [place] [address] 10/31/2024 1:00 PM EDT Telemedicine Cancer Center at [address] [place], [place] [address] Ronald Mills MD 240 [facility] Max [address] [place] [address] documented as of this encounter Visit Diagnoses Not on filedocumented in this encounter Additional Health Concerns Infection Onset Date Last Indicated Resolved Time COVID-19 03/05/2022 03/05/2022 03/15/2022 7:18 PM EDT Assessment Noted Time PHQ-9 Depression Total Score: 2 11/07/19 19 2:06 PM EDT documented as of this encounter Care Teams Supervisor Diagnostic Relationship Specialty Start Date End Date Caitlyn Bowie MD [address] [address] PCP - General Internal Medicine 05/06/21 documented as of this encounter
--- OUTSIDE RECORDS SUMMARY | 2024-09-11 13:10 | XMS_ITS | Encounter Summary ---
Author Organization [facility] Address [address] [place] [address] Care Team Providers Care Liquefied Natural Gas Plant Operator Name Role Phone Caitlyn Bowie MD Primary Care Provider +1- [phone] Encounter Details Date Type Department Care Team (Late st Contact Info) Description 04/03/2018 Scanned Document [facility] [address] [place] [address] Provider, historical . Social History Tobacco Use [...] Description 09/30/2024 8:30 PM EDT Procedure visit [facility] [address] [place] [address] [address] [place] [address] 10/31/2024 1:00 PM EDT Telemedicine [facility] 240 [facility] Building [address] [place], [place] [address] Ronald Mills MD 240 [facility] A1 [place] [address] documented as [...] documented as of this encounter Care Teams Liquefied Natural Gas Plant Operator Relationship Specialty Start Date End Date Caitlyn Bowie MD 3400 [facility] 1 [place] [address] PCP - General Internal Medicine 05/06/21 Henry Kelly MD Pulmonary Department 175 [facility], [address] [place] [address] Physician Pulmonary Disease 09/06/17 06/22/20 documented as of this encounter
--- OUTSIDE RECORDS SUMMARY | 2024-09-11 13:10 | XMS_ITS | Encounter Summary ---
Author Organization [facility] Address [address] [place] [address] Care Team Providers Care Controller Mechanic Name Role Phone Caitlyn Bowie MD Primary Care Provider +1- [phone] Encounter Details Date Type Department Care Team (Late st Contact Info) Description 07/30/2018 Scanned Document [facility] Health Information Management [address] [place] [address] External, Provider Social History Tobacco Use Types [...] Description 09/30/2024 8:30 PM EDT Procedure visit [facility] [address] [place] [address] [address] [place] [address] 10/31/2024 1:00 PM EDT Telemedicine [facility] 240 [facility] Building [address] [place], [place] [address] Ronald Mills MD 240 [facility] A1 [place] [address] documented as of this encounter [...] documented as of this encounter Care Teams Controller Mechanic Relationship Specialty Start Date End Date Caitlyn Bowie MD 3400 [facility] 1 [place] [address] PCP - General Internal Medicine 05/06/21 Henry Kelly MD Pulmonary Department 175 [facility], [address] [place] [address] Physician Pulmonary Disease 09/06/17 06/22/20 documented as of this encounter
--- OUTSIDE RECORDS SUMMARY | 2024-09-11 13:10 | XMS_ITS | Encounter Summary ---
Author Organization [facility] and [facility] Address [address] [place] [address] Care Team Providers Care Tail Board Worker Name Role Phone Caitlyn Bowie MD Primary Care Provider +1- [phone] Encounter Details Date Type Department Care Team (Late st Contact Info) Description 08/07/2018 Scanned Document [facility] Health Information Management [address] [place] [address] External, Provider Social History Tobacco Use Types [...] Description 09/30/2024 8:30 PM EDT Procedure visit [facility] [address] [place] [address] [address] [place] [address] 10/31/2024 1:00 PM EDT Tele[facility]icine [facility] 240 [facility] Building [address] [place], [place] [address] Ronald Mills MD 240 [facility] A1 [place] [address] documented as of this encounter Visit Diagnoses Not on filedocumented in this encounter Additional Health Concerns Infection Onset Date Last Indicated Resolved Time COVID-19 03/05/2022 03/05/2022 03/15/2022 7:18 PM EDT documented as of this encounter Care Teams Tail Board Worker Relationship Specialty Start Date End Date Caitlyn Bowie MD 3400 [facility] 1 [place] [address] PCP - General Internal Medicine 05/06/21 Henry Kelly MD Pulmonary Department 175 [facility], [address] [place] [address] Physician Pulmonary Disease 09/06/17 06/22/20 documented as of this encounter
--- OUTSIDE RECORDS SUMMARY | 2024-09-11 13:10 | XMS_ITS | Encounter Summary ---
Author Organization [facility] Address [address] [place] [address] Care Team Providers Care Performance Solutions Specialist Name Role Phone Caitlyn Bowie MD Primary Care Provider +1- [phone] Encounter Details Date Type Department Care Team (Late st Contact Info) Description 06/07/2021 Scanned Document [facility] at [address] [address] External, Provider Social History Tobacco Use Types [...] Description 09/30/2024 8:30 PM EDT Procedure visit [facility] [address] [place] [address] [place] [address] 10/31/2024 1:00 PM EDT Telemedicine Cancer Center at [address] [place], [place] [address] Ronald Mills MD [address] [address] documented as of this encounter Visit Diagnoses Not on filedocumented in this encounter Additional Health Concerns Infection Onset Date Last Indicated Resolved Time COVID-19 03/05/2022 03/05/2022 03/15/2022 7:18 PM EDT Assessment Noted Time PHQ-9 Depression Total Score: 2 11/07/19 19 2:06 PM EDT documented as of this encounter Care Teams Performance Solutions Specialist Relationship Specialty Start Date End Date Caitlyn Bowie MD [address] [address] PCP - General Internal Medicine 05/06/21 documented as of this encounter
--- OUTSIDE RECORDS SUMMARY | 2024-09-11 13:10 | XMS_ITS | Encounter Summary ---
Author Organization [facility] Address [address] [place] [address] Care Team Providers Care Mercury Cracking Tester Name Role Phone Caitlyn Bowie MD Primary Care Provider +1- [phone] Reason for Visit * Reason Comments Triage Encounter Details Date Type Department Care Team (Late st Contact Info) Description 10/18/2021 Telephone [facility] at [address] - [address] [address] Ronald Mills MD [address] [place] [address] Triage Social History Tobacco Use Types [...] EDT Procedure visit [facility] [address] [place] [address] [address] [place] [address] 10/31/2024 1:00 PM EDT Telemedicine Cancer Center at [facility] 240 [facility] [address] [place], [place] [address] Ronald Mills MD 240 [facility] A1 [place] [address] documented as of this encounter Visit Diagnoses Not on filedocumented in this encounter Additional Health Concerns Infection Onset Date Last Indicated Resolved Time COVID-19 03/05/2022 03/05/2022 03/15/2022 7:18 PM EDT Assessment Noted Time PHQ-9 Depression Total Score: 2 11/07/19 19 2:06 PM EDT documented as of this encounter Care Teams Mercury Cracking Tester Relationship Specialty Start Date End Date Caitlyn Bowie MD [address] [address] PCP - General Internal Medicine 05/06/21 documented as of this encounter
--- OUTSIDE RECORDS SUMMARY | 2024-09-11 13:10 | XMS_ITS | Encounter Summary ---
Author Organization [facility] Address [address] [place] [address] Care Team Providers Care Puppy Trainer Name Role Phone Caitlyn Bowie MD Primary Care Provider +1- [phone] Encounter Details Date Type Department Care Team (Late st Contact Info) Description 07/28/2018 Scanned Document [facility] Health Information Management [address] [place] [address] External, Provider Social History Tobacco Use Types [...] Description 09/30/2024 8:30 PM EDT Procedure visit [facility] [address] [place] [address] [address] [place] [address] 10/31/2024 1:00 PM EDT [facility]medicine [facility] 240 [facility] Building [address] [place], [place] [address] Ronald Mills MD 240 [facility] A1 [place] [address] documented as of this encounter [...] documented as of this encounter Care Teams Puppy Trainer Relationship Specialty Start Date End Date Caitlyn Bowie MD 3400 [facility] 1 [place] [address] PCP - General Internal Medicine 05/06/21 Henry Kelly MD Pulmonary Department 175 [facility], [address] [place] [address] Physician Pulmonary Disease 09/06/17 06/22/20 documented as of this encounter
--- OUTSIDE RECORDS SUMMARY | 2024-09-11 13:10 | XMS_ITS | Encounter Summary ---
Author Organization [facility] Address [address] [place] [address] Care Team Providers Care Sales Agent Protective Service Name Role Phone Caitlyn Bowie MD Primary Care Provider +1- [phone] Encounter Details Date Type Department Care Team (Late st Contact Info) Description 12/04/2014 Scanned Document [facility] Health Information Management [address] [place] [address] External, Provider Social History Tobacco Use Types [...] EDT Procedure visit [facility] [address] [place] [address] [address] [place] [address] 10/31/2024 1:00 PM EDT [facility] 240 [facility] Building [address] [place], [place] [address] Ronald Mills MD 240 [facility] A1 [place] [address] documented as of this encounter Procedures Procedure Name Priority Date/Time Associated Diagnosis Comments LAB SCAN Routine 12/04/2014 documented in this encounter Results * Lab Scan (12/04/2014) Blood specimen (specimen) us Provider External LAB BLOOD ORDERABLES Final Res ult Performing Organization Address City/State/[facility] Co de Phone Number [facility] documented in this encounter Visit Diagnoses Not on filedocumented in this encounter Additional Health Concerns Infection Onset Date Last Indicated Resolved Time COVID-19 03/05/2022 03/05/2022 03/15/2022 7:18 PM EDT documented as of this encounter Care Teams Sales Agent Protective Service Relationship Specialty Start Date End Date Caitlyn Bowie MD 3400 [facility] Max 1 [place] [address] PCP - General Internal Medicine 05/06/21 Henry Kelly MD Pulmonary Department 175 [facility], [address] [place] [address] Physician Pulmonary Disease 09/06/17 06/22/20 documented as of this encounter
--- OUTSIDE RECORDS SUMMARY | 2024-09-11 13:10 | XMS_ITS | Encounter Summary ---
Author Organization [facility] and [facility] Address [address] [place] [address] Care Team Providers Care Staff Reporter Name Role Phone Caitlyn Bowie MD Primary Care Provider +1- [phone] Encounter Details Date Type Department Care Team (Late Contact Info) Description 11/18/2021 Scanned Document [facility] Health Information Management [address] [place] [address] External, Provider Social History Tobacco Use Types [...] Description 09/30/2024 8:30 PM EDT Procedure visit [facility] [address] [place] [address] [address] [place] [address] 10/31/2024 1:00 PM EDT Telemedicine [facility] at [facility] 240 [facility] [address] [place] [address] Ronald Mills MD 240 [facility] A1 [place] [address] documented as of this encounter Visit Diagnoses Not on filedocumented in this encounter Additional Health Concerns Infection Onset Date Last Indicated Resolved Time COVID-19 03/05/2022 03/05/2022 03/15/2022 7:18 PM EDT Assessment Noted Time PHQ-9 Depression Total Score: 2 11/07/19 19 2:06 PM EDT documented as of this encounter Care Teams Staff Reporter Relationship Specialty Start Date End Date Caitlyn Bowie MD [address] [address] PCP - General Internal Medicine 05/06/21 documented as of this encounter
--- OUTSIDE RECORDS SUMMARY | 2024-09-11 13:10 | XMS_ITS | Encounter Summary ---
Author Organization [facility] Address [address] [place] [address] Care Team Providers Care Mail Carrier And Clerk Name Role Phone Caitlyn Bowie MD Primary Care Provider +1- [phone] Encounter Details Date Type Department Care Team (Late st Contact Info) Description 07/26/2018 Scanned Document [facility] Health Information Management [address] [place] [address] External, Provider Social History Tobacco Use Types [...] 09/30/2024 8:30 PM EDT Procedure visit [facility] [address] [place] [address] [address] [place] [address] 10/31/2024 1:00 PM EDT [facility]icine [facility] 240 [facility] Building [address] [place], [place] [address] Ronald Mills MD 240 [facility] A1 [place] [address] documented as of this encounter [...] as of this encounter Care Teams Mail Carrier And Clerk Relationship Specialty Start Date End Date Caitlyn Bowie MD 3400 [facility] 1 [place] [address] PCP - General Internal Medicine 05/06/21 Henry Kelly MD Pulmonary Department 175 [facility], [address] [place] [address] Physician Pulmonary Disease 09/06/17 06/22/20 documented as of this encounter
--- OUTSIDE RECORDS SUMMARY | 2024-09-11 13:10 | XMS_ITS | Encounter Summary ---
Author Organization [facility] Address [address] [place] [address] Care Team Providers Care Appellate Law Clerk Name Role Phone Caitlyn Bowie MD Primary Care Provider +1- [phone] Encounter Details Date Type Department Care Team (Late st Contact Info) Description 10/29/2021 Scanned Document [facility] Health Information Management [address] [place] [address] External, Provider Social History Tobacco Use Types [...] Description 09/30/2024 8:30 PM EDT Procedure visit [facility] [address] [place] [address] [address] [place] [address] 10/31/2024 1:00 PM EDT [facility] 240 [facility] [address] [place] [address] Ronald Mills MD 240 [facility] A1 [place] [address] documented as of this encounter [...] documented as of this encounter Care Teams Appellate Law Clerk Relationship Specialty Start Date End Date Caitlyn Bowie MD [address] [address] PCP - General Internal Medicine 05/06/21 documented as of this encounter
--- OUTSIDE RECORDS SUMMARY | 2024-09-11 13:10 | XMS_ITS | Encounter Summary ---
Author Organization [facility] and [facility] Address [address] [place] [address] Care Team Providers Care Kettle Operator Head Name Role Phone Caitlyn Bowie MD Primary Care Provider +1- [phone] Encounter Details Date Type Department Care Team (Late st Contact Info) Description 09/24/2021 Scanned Document INTERFACE DEFAULT [address] [place] [address] System, Provider Not In Social History Tobacco [...] Description 09/30/2024 8:30 PM EDT Procedure visit [facility] [address] [place] [address] [address] [place] [address] 10/31/2024 1:00 PM EDT Telemedicine [facility] 240 [facility] A [address] [place] [address] Ronald Mills MD 240 [facility] A1 [place] [address] documented as of this encounter [...] documented as of this encounter Care Teams Kettle Operator Head Relationship Specialty Start Date End Date Caitlyn Bowie MD [address] [address] PCP - General Internal Medicine 05/06/21 documented as of this encounter
--- OUTSIDE RECORDS SUMMARY | 2024-09-11 13:10 | XMS_ITS | Encounter Summary ---
Author Organization [facility] Address [address] [place] [address] Care Team Providers Care Desktop Architect Name Role Phone Caitlyn Bowie MD Primary Care Provider +1- [phone] Encounter Details Date Type Department Care Team (Late st Contact Info) Description 05/05/2021 Scanned Document INTERFACE DEFAULT [address] [place] [address] System, Provider Not In Social History Tobacco [...] Description 09/30/2024 8:30 PM EDT Procedure visit [facility] [address] [place] [address] [address] [place] [address] 10/31/2024 1:00 PM EDT Telemedicine [facility] 240 [facility] A [address] [place] [address] Ronald Mills MD 240 [facility] A1 [place] [address] documented as of this encounter Visit Diagnoses Not on filedocumented in this encounter Additional Health Concerns Infection Onset Date Last Indicated Resolved Time COVID-19 03/05/2022 03/05/2022 03/15/2022 7:18 PM EDT Assessment Noted Time PHQ-9 Depression Total Score: 2 11/07/19 19 2:06 PM EDT documented as of this encounter Care Teams Desktop Architect Relationship Specialty Start Date End Date Caitlyn Bowie MD [address] [address] PCP - General Internal Medicine 05/06/21 documented as of this encounter
--- OUTSIDE RECORDS SUMMARY | 2024-09-11 13:10 | XMS_ITS | Encounter Summary ---
Author Organization [facility] Address [address] [place] [address] Care Team Providers Care Fire Technology Instructor Name Role Phone Caitlyn Bowie MD Primary Care Provider +1- [phone] Encounter Details Date Type Department Care Team (Late st Contact Info) Description 04/18/2018 Scanned Document [facility] Health Information Management [address] [place] [address] External, Provider Social History Tobacco Use Types [...] EDT Procedure visit [facility] [address] [place] [address] [address] [place] [address] 10/31/2024 1:00 PM EDT Telemedicine [facility] 240 [facility] Building [address] [place], [place] [address] Ronald Mills MD 240 [facility] A1 [place] [address] documented as of [...] as of this encounter Care Teams Fire Technology Instructor Relationship Specialty Start Date End Date Caitlyn Bowie MD 3400 [facility] 1 [place] [address] PCP - General Internal Medicine 05/06/21 Henry Kelly MD Pulmonary Department 175 [facility], [address] [place] [address] Physician Pulmonary Disease 09/06/17 06/22/20 documented as of this encounter
--- OUTSIDE RECORDS SUMMARY | 2024-09-11 13:10 | XMS_ITS | Encounter Summary ---
Author Organization [facility] and [facility] Address [address] [place] [address] Care Team Providers Care Hose Coupling Joiner Name Role Phone Caitlyn Bowie MD Primary Care Provider +1- [phone] Encounter Details Date Type Department Care Team (Late st Contact Info) Description 09/09/2021 Scanned Document INTERFACE DEFAULT [address] [place] [address] System, Provider Not In Social History Tobacco [...] Description 09/30/2024 8:30 PM EDT Procedure visit [facility] [address] [place] [address] [address] [place] [address] 10/31/2024 1:00 PM EDT [facility] 240 [facility] [address] [place] [address] Ronald Mills MD 240 [facility] A1 [place] [address] documented as of this encounter Visit Diagnoses Not on filedocumented in this encounter Additional Health Concerns Infection Onset Date Last Indicated Resolved Time COVID-19 03/05/2022 03/05/2022 03/15/2022 7:18 PM EDT Assessment Noted Time PHQ-9 Depression Total Score: 2 11/07/19 19 2:06 PM EDT documented as of this encounter Care Teams Hose Coupling Joiner Relationship Specialty Start Date End Date Caitlyn Bowie MD [address] [address] PCP - General Internal Medicine 05/06/21 documented as of this encounter
--- OUTSIDE RECORDS SUMMARY | 2024-09-11 13:10 | XMS_ITS | Encounter Summary ---
Author Organization [facility] and [facility] Address [address] [place] [address] Care Team Providers Care Slip Tender Name Role Phone Caitlyn Bowie MD Primary Care Provider +1- [phone] Reason for Visit * Reason Comments FYI Encounter Details Date Type Department Care Team (Late st Contact Info) Description 05/24/2021 Telephone [facility] at [facility] at [address] [place] [address] [address] [place], [place] [phone] Solo Henry MD [address] [place] [address] FYI Social History Tobacco Use Types [...] Description 09/30/2024 8:30 PM EDT Procedure visit [facility] [address] [place] [address] [address] [place] [address] 10/31/2024 1:00 PM EDT Telemedicine [facility] 240 [facility] [address] [place] [address] Ronald Mills MD 240 [facility] Max A1 [place] [address] documented as of this encounter Visit Diagnoses Not on filedocumented in this encounter Additional Health Concerns Infection Onset Date Last Indicated Resolved Time COVID-19 03/05/2022 03/05/2022 03/15/2022 7:18 PM EDT Assessment Noted Time PHQ-9 Depression Total Score: 2 11/07/19 19 2:06 PM EDT documented as of this encounter Care Teams Slip Tender Relationship Specialty Start Date End Date Caitlyn Bowie MD 3400 [facility] 1 [place] [address] PCP - General Internal Medicine 05/06/21 documented as of this encounter
--- OUTSIDE RECORDS SUMMARY | 2024-09-11 13:10 | XMS_ITS | Encounter Summary ---
Author Organization [facility] and [facility] Address [address] [place] [address] Care Team Providers Care Cyber Defense Analyst Name Role Phone Caitlyn Bowie MD Primary Care Provider +1- [phone] Encounter Details Date Type Department Care Team (Late st Contact Info) Description 05/27/2021 Telephone [facility] at [address] [address] Ronald Mills MD [address] [place] [address] Social History Tobacco Use Types Packs/Day [...] EDT Procedure visit [facility] [address] [place] [address] [address] [place] [address] 10/31/2024 1:00 PM EDT Telemedicine [facility] at [facility] 240 [place] [facility] [address] [place], [place] [address] Ronald Mills MD 240 [facility] A1 [place] [address] documented as of this encounter Visit Diagnoses Not on filedocumented in this encounter Additional Health Concerns Infection Onset Date Last Indicated Resolved Time COVID-19 03/05/2022 03/05/2022 03/15/2022 7:18 PM EDT Assessment Noted Time PHQ-9 Depression Total Score: 2 11/07/19 19 2:06 PM EDT documented as of this encounter Care Teams Cyber Defense Analyst Relationship Specialty Start Date End Date Caitlyn Bowie MD [address] [address] PCP - General Internal Medicine 05/06/21 documented as of this encounter
--- OUTSIDE RECORDS SUMMARY | 2024-09-11 13:10 | XMS_ITS | Encounter Summary ---
Author Organization [facility] and [facility] Address [address] [place] [address] Care Team Providers Care Mate First Name Role Phone Caitlyn Bowie MD Primary Care Provider +1- [phone] Encounter Details Date Type Department Care Team (Late st Contact Info) Description 12/28/2021 Scanned Document INTERFACE DEFAULT [address] [place] [address] System, Provider Not In Social History Tobacco [...] Description 09/30/2024 8:30 PM EDT Procedure visit [facility] [address] [place] [address] [address] [place] [address] 10/31/2024 1:00 PM EDT [facility] [address] [facility] [address] [place] [address] Ronald Mills MD 240 [facility] A1 [place] [address] documented as of this encounter Visit Diagnoses Not on filedocumented in this encounter Additional Health Concerns Infection Onset Date Last Indicated Resolved Time COVID-19 03/05/2022 03/05/2022 03/15/2022 7:18 PM EDT Assessment Noted Time PHQ-9 Depression Total Score: 2 11/07/19 19 2:06 PM EDT documented as of this encounter Care Teams Mate First Relationship Specialty Start Date End Date Caitlyn Bowie MD [address] [address] PCP - General Internal Medicine 05/06/21 documented as of this encounter
--- OUTSIDE RECORDS SUMMARY | 2024-09-11 13:10 | XMS_ITS | Encounter Summary ---
Author Organization [facility] and [facility] Address [address] [place] [address] Care Team Providers Care Steam Room Attendant Name Role Phone Caitlyn Bowie MD Primary Care Provider +1- [phone] Encounter Details Date Type Department Care Team (Late st Contact Info) Description 04/29/2021 Scanned Document INTERFACE DEFAULT [address] [place] [address] System, Provider Not In Social History Tobacco [...] Description 09/30/2024 8:30 PM EDT Procedure visit [facility] [address] [place] [address] [address] [place] [address] 10/31/2024 1:00 PM EDT Telemedicine [facility] 240 [facility] Building [address] [place] [address] Ronald Mills MD 240 [facility] A1 [place] [address] documented as of this encounter Procedures Procedure [...] as of this encounter Care Teams Steam Room Attendant Relationship Specialty Start Date End Date Caitlyn Bowie MD [address] [address] PCP - General Internal Medicine 05/06/21 documented as of this encounter
--- OUTSIDE RECORDS SUMMARY | 2024-09-11 13:10 | XMS_ITS | Encounter Summary ---
Author Organization [facility] and [facility] Address [address] [place] [address] Care Team Providers Care Chain Carrier Name Role Phone Caitlyn oBwie MD Primary Care Provider +1- [phone] Encounter Details Date Type Department Care Team (Late st Contact Info) Description 11/19/2021 Scanned Document Cardiovascular Medicine at [address] [place] [address] Noram Renee MD [address] [place] [phone] Social History Tobacco Use Types Packs/Day Years [...] Description 09/30/2024 8:30 PM EDT Procedure visit [facility] [address] [place] [address] [address] [place] [address] 10/31/2024 1:00 PM EDT Telemedicine Cancer Center at [address] [place], [place] [address] Ronald Mills MD 240 [facility] Max [address]1 [place] [address] documented as of this encounter Visit Diagnoses Not on filedocumented in this encounter Additional Health Concerns Infection Onset Date Last Indicated Resolved Time COVID-19 03/05/2022 03/05/2022 03/15/2022 7:18 PM EDT Assessment Noted Time PHQ-9 Depression Total Score: 2 11/07/19 19 2:06 PM EDT documented as of this encounter Care Teams Chain Carrier Relationship Specialty Start Date End Date Caitlyn Bowie MD [address] [address] PCP - General Internal Medicine 05/06/21 documented as of this encounter
--- OUTSIDE RECORDS SUMMARY | 2024-09-11 13:10 | XMS_ITS | Encounter Summary ---
Author Organization [facility] and [facility] Address [address] [place] [address] Care Team Providers Care Artillery Or Naval Gunfire Observer Name Role Phone Caitlyn Bowie MD Primary Care Provider +1- [phone] Encounter Details Date Type Department Care Team (Late st Contact Info) Description 04/24/2021 Scanned Document INTERFACE DEFAULT [address] [place] [address] System, Provider Not In Social History Tobacco [...] Description 09/30/2024 8:30 PM EDT Procedure visit [facility] [address] [place] [address] [address] [place] [address] 10/31/2024 1:00 PM EDT Telemedicine [facility] at [facility] 240 [facility] Building [address] [place] [address] Ronald Mills MD [address] [facility] A1 [place] [address] documented as of this encounter Procedures Procedure [...] documented as of this encounter Care Teams Artillery Or Naval Gunfire Observer Relationship Specialty Start Date End Date Caitlyn Bowie MD [address] [address] PCP - General Internal Medicine 05/06/21 documented as of this encounter
--- OUTSIDE RECORDS SUMMARY | 2024-09-11 13:10 | XMS_ITS | Encounter Summary ---
Author Organization [facility] [place] [facility] and [facility] Address [address] [place] [address] Care Team Providers Care Supervisor Net Making Name Role Phone Caitlyn Bowie MD Primary Care Provider +1- [phone] Encounter Details Date Type Department Care Team (Late st Contact Info) Description 04/25/2021 Scanned Document INTERFACE DEFAULT [address] [place] [address] System, Provider Not In Social History Tobacco [...] Description 09/30/2024 8:30 PM EDT Procedure visit [facility] [address] [place] [address] [address] [place] [address] 10/31/2024 1:00 PM EDT Telemedicine [facility] at [facility] 240 [facility] [address] [place] [address] Ronald Mills MD 240 [facility] A1 [place] [address] documented as of this encounter [...] as of this encounter Care Teams Supervisor Net Making Relationship Specialty Start Date End Date Caitlyn Bowie MD [facility] [address] [address] PCP - General Internal Medicine 05/06/21 documented as of this encounter
--- OUTSIDE RECORDS SUMMARY | 2024-09-11 13:10 | XMS_ITS | Encounter Summary ---
Author Organization [facility] and [facility] Address [address] [place] [address] Care Team Providers Care Privacy Attorney Name Role Phone Caitlyn Bowie MD Primary Care Provider +1- [phone] Encounter Details Date Type Department Care Team (Late st Contact Info) Description 04/26/2021 Scanned Document INTERFACE DEFAULT [address] [place] [address] System, Provider Not In Social History Tobacco [...] Description 09/30/2024 8:30 PM EDT Procedure visit [facility] [address] [place] [address] [address] [place] [address] 10/31/2024 1:00 PM EDT [facility] 240 [facility] Building [address] [place] [address] Ronald Mills MD 240 [facility] A1 [place] [address] documented as of this [...] documented as of this encounter Care Teams Privacy Attorney Relationship Specialty Start Date End Date Caitlyn Bowie MD [facility] [address] [address] PCP - General Internal Medicine 05/06/21 documented as of this encounter
--- OUTSIDE RECORDS SUMMARY | 2024-09-11 13:10 | XMS_ITS | Encounter Summary ---
Author Organization [facility] and [facility] Address 20 [place] [address] Care Team Providers Care Civil Engineering Professional Name Role Phone Caitlyn Bowie MD Primary Care Provider +1- [phone] Encounter Details Date Type Department Care Team (Late st Contact Info) Description 05/17/2021 Scanned Document Cancer Center at [address] [address] External, Provider Social History Tobacco Use Types [...] Description 09/30/2024 8:30 PM EDT Procedure visit [facility] [address] [place] [address] [place] [address] 10/31/2024 1:00 PM EDT Telemedicine Cancer Center at [address] [place], [place] [address] Ronald Mills MD [address] [address] documented as of this encounter [...] as of this encounter Care Teams Civil Engineering Professional Relationship Specialty Start Date End Date Caitlyn Bowie MD [address] [address] PCP - General Internal Medicine 05/06/21 documented as of this encounter
--- OUTSIDE RECORDS SUMMARY | 2024-09-11 13:11 | XMS_ITS | Encounter Summary ---
Author Organization [facility] and [facility] Address [address] [place] [address] Care Team Providers Care Product Support Manager Name Role Phone Caitlyn Bowie MD Primary Care Provider +1- [phone] Encounter Details Date Type Department Care Team (Late st Contact Info) Description 04/19/2023 Scanned Document INTERFACE DEFAULT [address] [place] [address] System, Provider Not In Social History Tobacco [...] Description 09/30/2024 8:30 PM EDT Procedure visit [facility] [address] [place] [address] [address] [place] [address] 10/31/2024 1:00 PM EDT Telemedicine Cancer Center at [facility] 240 [facility] Building [address] [place] [address] Ronald Mills MD 240 [facility] A1 [place] [address] documented as of this encounter Procedures Procedure [...] of this encounter Care Teams Product Support Manager Relationship Specialty Start Date End Date Caitlyn Bowie MD [address] [address] PCP - General Internal Medicine 05/06/21 documented as of this encounter
--- OUTSIDE RECORDS SUMMARY | 2024-09-11 13:11 | XMS_ITS | Encounter Summary ---
Author Organization [facility] and [facility] Address [address] [place] [address] Care Team Providers Care Commodity Buyer Name Role Phone Caitlyn Bowie MD Primary Care Provider +1- [phone] Encounter Details Date Type Department Care Team (Late st Contact Info) Description 09/09/2015 Scanned Document [facility] Health Information Management [address] [place] [address] External, Provider Social History Tobacco Use Types [...] Description 09/30/2024 8:30 PM EDT Procedure visit [facility] [address] [place] [address] [address] [place] [address] 10/31/2024 1:00 PM EDT Telemedicine [facility] at [facility] 240 [facility] Building [address] [place], [place] [address] Ronald Mills MD 240 [facility] A1 [place] [address] documented as of this encounter Procedures Procedure Name Priority Date/Time Associated Diagnosis Comments LAB SCAN Routine 09/09/2015 documented in this encounter Results * Lab Scan (09/09/2015) Blood specimen (specimen) us Provider External LAB BLOOD ORDERABLES Final Res ult Performing Organization Address City/State/[facility] Co de Phone Number [facility] documented in this encounter Visit Diagnoses Not on filedocumented in this encounter Additional Health Concerns Infection Onset Date Last Indicated Resolved Time COVID-19 03/05/2022 03/05/2022 03/15/2022 7:18 PM EDT documented as of this encounter Care Teams Commodity Buyer Relationship Specialty Start Date End Date Caitlyn Bowie MD 3400 [facility] Max 1 [place] [address] PCP - General Internal Medicine 05/06/21 Henry Kelly MD Pulmonary Department [address] [facility] [place] [address] Physician Pulmonary Disease 09/06/17 06/22/20 documented as of this encounter
--- OUTSIDE RECORDS SUMMARY | 2024-09-11 13:11 | XMS_ITS | Encounter Summary ---
Author Organization [facility] and [facility] Address [address] [place] [address] Care Team Providers Care Rat Culturist Name Role Phone Caitlyn Bowie MD Primary Care Provider +1- [phone] Encounter Details Date Type Department Care Team (Late st Contact Info) Description 06/20/2022 Scanned Document INTERFACE DEFAULT [address] [place] [address] System, Provider Not In Social History Tobacco [...] 09/30/2024 8:30 PM EDT Procedure visit [facility] [address] [place] [address] [address] [place] [address] 10/31/2024 1:00 PM EDT Telemedicine [facility] 240 [facility] Building [address] [place] [address] Ronald Mills MD 240 [facility] A1 [place] [address] documented as of this encounter Procedures Procedure [...] as of this encounter Care Teams Rat Culturist Relationship Specialty Start Date End Date Caitlyn Bowie MD [facility] [address] [address] PCP - General Internal Medicine 05/06/21 documented as of this encounter
--- OUTSIDE RECORDS SUMMARY | 2024-09-11 13:11 | XMS_ITS | Encounter Summary ---
Author Organization [facility] and [facility] Address [address] [place] [address] Care Team Providers Care Extractor Tender Raw Stock Name Role Phone Caitlyn Bowie MD Primary Care Provider +1- [phone] Encounter Details Date Type Department Care Team (Late st Contact Info) Description 06/28/2022 Scanned Document INTERFACE DEFAULT [address] [place] [address] System, Provider Not In Social History Tobacco [...] Description 09/30/2024 8:30 PM EDT Procedure visit [facility] [address] [place] [address] [address] [place] [address] 10/31/2024 1:00 PM EDT Telemedicine [facility] at [facility] 240 [facility] Building [address] [place] [address] Ronald Mills MD 240 [facility] A1 [place] [address] documented as of this encounter Procedures Procedure [...] End Date Caitlyn Bowie MD [address] [address] PCP - General Internal Medicine 05/06/21 documented as of this encounter
--- OUTSIDE RECORDS SUMMARY | 2024-09-11 13:11 | XMS_ITS | Encounter Summary ---
Author Organization [facility] and [facility] Address [address] [place] [address] Care Team Providers Care Sand Mill Operator Facing Sand Name Role Phone Caitlyn Bowie MD Primary Care Provider +1- [phone] Encounter Details Date Type Department Care Team (Late st Contact Info) Description 04/13/2023 Scanned Document INTERFACE DEFAULT [address] [place] [address] System, Provider Not In Social History Tobacco [...] Description 09/30/2024 8:30 PM EDT Procedure visit [facility] [address] [place] [address] [address] [place] [address] 10/31/2024 1:00 PM EDT Telemedicine [facility] 240 [facility] [address] [place] [address] Ronald Mills MD 240 [facility] A1 [place] [address] documented as of this encounter Procedures Procedure [...] as of this encounter Care Teams Sand Mill Operator Facing Sand Relationship Specialty Start Date End Date Caitlyn Bowie MD [address] [address] PCP - General Internal Medicine 05/06/21 documented as of this encounter
--- OUTSIDE RECORDS SUMMARY | 2024-09-11 13:11 | XMS_ITS | Encounter Summary ---
Author Organization [facility] and [facility] Address 20 [place] [address] Care Team Providers Care Flag Signaler Name Role Phone Caitlyn Bowie MD Primary Care Provider +1- [phone] Encounter Details Date Type Department Care Team (Late st Contact Info) Description 07/08/2022 Scanned Document Cardiovascular Medicine at [address] [address] Norma Renee MD [address] [place] [phone] Social History Tobacco Use Types Packs/Day Years [...] Description 09/30/2024 8:30 PM EDT Procedure visit [facility] [address] [place] [address] [address] [place] [address] 10/31/2024 1:00 PM EDT Telemedicine Cancer Center at [address] [place] [address] Ronald Mills MD 240 [facility] Max A1 [place] [address] documented as of this encounter Visit Diagnoses Not on filedocumented in this encounter Additional Health Concerns Assessment Noted Time PHQ-9 Depression Total Score: 2 11/07/19 19 2:06 PM EDT documented as of this encounter Care Teams Flag Signaler Relationship Specialty Start Date End Date Caitlyn Bowie MD 3400 [facility] 1 [place] [address] PCP - General Internal Medicine 05/06/21 documented as of this encounter
--- OUTSIDE RECORDS SUMMARY | 2024-09-11 13:11 | XMS_ITS | Encounter Summary ---
Author Organization [facility] and [facility] Address [address] [place] [address] Care Team Providers Care Chemical Equipment Sales Engineer Name Role Phone Caitlyn Bowie MD Primary Care Provider +1- [phone] Encounter Details Date Type Department Care Team (Late st Contact Info) Description 06/21/2022 Scanned Document INTERFACE DEFAULT [address] [place] [address] System, Provider Not In Social History Tobacco [...] Description 09/30/2024 8:30 PM EDT Procedure visit [facility] [address] [place] [address] [address] [place] [address] 10/31/2024 1:00 PM EDT [facility]med[facility] 240 [facility] Building [address] [place] [address] Ronald Mills MD 240 [facility] A1 [place] [address] documented as of this encounter Procedures Procedure [...] as of this encounter Care Teams Chemical Equipment Sales Engineer Relationship Specialty Start Date End Date Caitlyn Bowie MD [address] [address] PCP - General Internal Medicine 05/06/21 documented as of this encounter
--- OUTSIDE RECORDS SUMMARY | 2024-09-11 13:11 | XMS_ITS | Encounter Summary ---
Author Organization [facility] and [facility] Address [address] [place] [address] Care Team Providers Care Health Administration Teacher Name Role Phone Caitlyn Bowie MD Primary Care Provider +1- [phone] Encounter Details Date Type Department Care Team (Late st Contact Info) Description 12/23/2022 Scanned Document INTERFACE DEFAULT [address] [place] [address] System, Provider Not In Social History Tobacco [...] Description 09/30/2024 8:30 PM EDT Procedure visit [facility] [address] [place] [address] [address] [place] [address] 10/31/2024 1:00 PM EDT Telemedicine [facility] 240 [facility] Building [address] [place] [address] Ronald Mills MD 240 [facility] A1 [place] [address] documented as of this encounter Visit Diagnoses Not on filedocumented in this encounter Additional Health Concerns Assessment Noted Time PHQ-9 Depression Total Score: 2 11/07/19 19 2:06 PM EDT documented as of this encounter Care Teams Health Administration Teacher Relationship Specialty Start Date End Date Caitlyn Bowie MD [address] [address] PCP - General Internal Medicine 05/06/21 documented as of this encounter
--- OUTSIDE RECORDS SUMMARY | 2024-09-11 13:11 | XMS_ITS | Encounter Summary ---
Author Organization [facility] and [facility] Address [address] [place] [address] Care Team Providers Care Geological E Logger Name Role Phone Caitlyn Bowie MD Primary Care Provider +1- [phone] Encounter Details Date Type Department Care Team (Late st Contact Info) Description 06/24/2022 Scanned Document INTERFACE DEFAULT [address] [place] [address] System, Provider Not In Social History Tobacco [...] EDT Procedure visit [facility] [address] [place] [address] [address] [place] [address] 10/31/2024 1:00 PM EDT Tele[facility] 240 [facility] Building [address] [place] [address] Ronald Mills MD 240 [facility] A1 [place] [address] documented as of this encounter Procedures Procedure [...] as of this encounter Care Teams Geological E Logger Relationship Specialty Start Date End Date Caitlyn Bowie MD [address] [address] PCP - General Internal Medicine 05/06/21 documented as of this encounter
--- OUTSIDE RECORDS SUMMARY | 2024-09-11 13:11 | XMS_ITS | Encounter Summary ---
Author Organization [facility] and [facility] Address [address] [place] [address] Care Team Providers Care Director Of Human Resources Name Role Phone Caitlyn Bowie MD Primary Care Provider +1- [phone] Encounter Details Date Type Department Care Team (Late st Contact Info) Description 09/02/2021 Scanned Document INTERFACE DEFAULT [address] [place] [address] System, Provider Not In Social History Tobacco [...] Description 09/30/2024 8:30 PM EDT Procedure visit [facility] [address] [place] [address] [address] [place] [address] 10/31/2024 1:00 PM EDT Telemedicine [facility] at [facility] 240 [facility] [address] [place] [address] Ronald Mills MD 240 [facility] A1 [place] [address] documented as of this encounter Procedures Procedure [...] of this encounter Care Teams Director Of Human Resources Relationship Specialty Start Date End Date Caitlyn Bowie MD [facility] [address] [address] PCP - General Internal Medicine 05/06/21 documented as of this encounter
--- OUTSIDE RECORDS SUMMARY | 2024-09-11 13:11 | XMS_ITS | Encounter Summary ---
Author Organization [facility] and [facility] Address [address] [place] [address] Care Team Providers Care Metal Temperer Name Role Phone Caitlyn Bowie MD Primary Care Provider +1- [phone] Encounter Details Date Type Department Care Team (Late st Contact Info) Description 05/17/2023 Scanned Document INTERFACE DEFAULT [address] [place] [address] System, Provider Not In Social History Tobacco [...] Description 09/30/2024 8:30 PM EDT Procedure visit [facility] [address] [place] [address] [address] [place] [address] 10/31/2024 1:00 PM EDT Telemedicine [facility] 240 [facility] Building [address] [place] [address] Ronald Mills MD 240 [facility] A1 [place] [address] documented as of this encounter Procedures Procedure [...] as of this encounter Care Teams Metal Temperer Relationship Specialty Start Date End Date Caitlyn Bowie MD [address] [address] PCP - General Internal Medicine 05/06/21 documented as of this encounter
--- OUTSIDE RECORDS SUMMARY | 2024-09-11 13:11 | XMS_ITS | Encounter Summary ---
Author Organization [facility] Address [address] [place] [address] Care Team Providers Care Supervisor Cell Operation Name Role Phone Caitlyn Bowie MD Primary Care Provider +1- [phone] Encounter Details Date Type Department Care Team (Late st Contact Info) Description 12/04/2018 Scanned Document [facility] Health Information Management [address] [place] [address] External, Provider Social History Tobacco Use Types [...] EDT Procedure visit [facility] [address] [place] [address] [address] [place] [address] 10/31/2024 1:00 PM EDT Telemedicine [facility] at [facility] 240 [facility] Building [address] [place], [place] [address] Ronald Mills MD 240 [facility] A1 [place] [address] documented as of this encounter Visit Diagnoses Not on filedocumented in this encounter Additional Health Concerns Infection Onset Date Last Indicated Resolved Time COVID-19 03/05/2022 03/05/2022 03/15/2022 7:18 PM EDT Assessment Noted Time PHQ-9 Depression Total Score: 2 11/07/19 19 2:06 PM EDT documented as of this encounter Care Teams Supervisor Cell Operation Relationship Specialty Start Date End Date Caitlyn Bowie MD 3400 [facility] 1 [place] [address] PCP - General Internal Medicine 05/06/21 Herny Kelly MD Pulmonary Department 175 [facility], [address] [place] [address] Physician Pulmonary Disease 09/06/17 06/22/20 documented as of this encounter
--- OUTSIDE RECORDS SUMMARY | 2024-09-11 13:11 | XMS_ITS | Encounter Summary ---
Author Organization [facility] Address [address] [place] [address] Care Team Providers Care Electrical Prospector Name Role Phone Caitlyn Bowie MD Primary Care Provider +1- [phone] Encounter Details Date Type Department Care Team (Late st Contact Info) Description 04/20/2023 Scanned Document INTERFACE DEFAULT [address] [place] [address] System, Provider Not In Social History Tobacco [...] 09/30/2024 8:30 PM EDT Procedure visit [facility] [address] [place] [address] [address] [place] [address] 10/31/2024 1:00 PM EDT Telemedicine [facility] at [facility] 240 [facility] Building [address] [place] [address] Ronald Mills MD 240 [facility] A1 [place] [address] documented as of this encounter Procedures Procedure [...] as of this encounter Care Teams Electrical Prospector Relationship Specialty Start Date End Date Caitlyn Bowie MD [address] [address] PCP - General Internal Medicine 05/06/21 documented as of this encounter
--- OUTSIDE RECORDS SUMMARY | 2024-09-11 13:11 | XMS_ITS | Encounter Summary ---
Author Organization [facility] Address [address] [place] [address] Care Team Providers Care Energy Conservation Technician Name Role Phone Caitlyn Bowie MD Primary Care Provider +1- [phone] Encounter Details Date Type Department Care Team (Late st Contact Info) Description 07/28/2022 Scanned Document [facility] at [address] [address] Norma Renee MD [address] [place] [address] 2 [place] [phone] Social History Tobacco Use Types Packs/Day Years [...] Procedure visit [facility] [address] [place] [address] 10/31/2024 1:00 PM EDT Tele[facility] at [address] [place] [address] Ronald Mills MD [address] [place] [address] documented as of this encounter Visit Diagnoses Not on filedocumented in this encounter Additional Health Concerns Assessment Noted Time PHQ-9 Depression Total Score: 2 11/07/19 19 2:06 PM EDT documented as of this encounter Care Teams Energy Conservation Technician Relationship Specialty Start Date End Date Caitlyn Bowie MD [address] [address] PCP - General Internal Medicine 05/06/21 documented as of this encounter
--- OUTSIDE RECORDS SUMMARY | 2024-09-11 13:11 | XMS_ITS | Encounter Summary ---
Author Organization [facility] Address [address] [place] [address] Care Team Providers Care Ob Tech Name Role Phone Caitlyn Bowie MD Primary Care Provider +1- [phone] Encounter Details Date Type Department Care Team (Late st Contact Info) Description 07/22/2021 Scanned Document INTERFACE DEFAULT [address] [place] [address] System, Provider Not In Social History Tobacco [...] Description 09/30/2024 8:30 PM EDT Procedure visit [facility] [address] [place] [address] [address] [place] [address] 10/31/2024 1:00 PM EDT [facility] 240 [facility] [address] [place] [address] Ronald Mills MD 240 [facility] A1 [place] [address] documented as of this encounter Procedures Procedure [...] documented as of this encounter Care Teams Ob Tech Relationship Specialty Start Date End Date Caitlyn oBwie MD [address] [address] PCP - General Internal Medicine 05/06/21 documented as of this encounter
--- OUTSIDE RECORDS SUMMARY | 2024-09-11 13:11 | XMS_ITS | Encounter Summary ---
Author Organization [facility] Address [address] [place] [address] [address] [place] [address] Phone Care Team Providers Care Non Destructive Testing Inspector Name Role Phone Caitlyn Bowie MD Primary Care Provider +1- [phone] Encounter Details Date Type Department Care Team (Late st Contact Info) Description 08/30/2024 Abstract [facility] [address] [place] [address] 202 [place] [address] Adalgisa Whitney MD [address] [place] [address] [address] [place] [address] Social History Tobacco Use Types [...] 09/30/2024 8:30 PM EDT Procedure visit [facility] [address] [place] [address] 10/31/2024 1:00 PM EDT Telemedicine Cancer Center at [address] [place] [address] Ronald Mills MD [address] [place] [address] documented as of this encounter Visit Diagnoses Not on filedocumented in this encounter Additional Health Concerns Assessment Noted Time PHQ-9 Depression Total Score: 2 11/07/19 19 2:06 PM EDT documented as of this encounter Care Teams Non Destructive Testing Inspector Relationship Specialty Start Date End Date Caitlyn Bowie MD [address] [address] PCP - General Internal Medicine 05/06/21 documented as of this encounter
--- OUTSIDE RECORDS SUMMARY | 2024-09-11 13:11 | XMS_ITS | Encounter Summary ---
Author Organization [facility] Address [address] [place] [address] Care Team Providers Care Precision Filer Hand Name Role Phone Caitlyn Bowie MD Primary Care Provider +1- [phone] Reason for Visit * Reason Comments Advice Only mass Encounter Details Date Type Department Care Team (Late st Contact Info) Description 09/06/2021 Telephone [facility] at [address] [phone] Ronald Mills MD [address] [place] [address] Advice Only (mass) Social History Tobacco [...] Description 09/30/2024 8:30 PM EDT Procedure visit [facility] [address] [place] [address] [address] [place] [address] 10/31/2024 1:00 PM EDT Telemedicine Cancer Center at [address] [place], [place] [address] Ronald Mills MD 240 [facility] A1 [place] [address] documented as of this encounter Visit Diagnoses Not on filedocumented in this encounter Additional Health Concerns Infection Onset Date Last Indicated Resolved Time COVID-19 03/05/2022 03/05/2022 03/15/2022 7:18 PM EDT Assessment Noted Time PHQ-9 Depression Total Score: 2 11/07/19 19 2:06 PM EDT documented as of this encounter Care Teams Precision Filer Hand Relationship Specialty Start Date End Date Caitlyn Bowie MD [address] [address] PCP - General Internal Medicine 05/06/21 documented as of this encounter
--- OUTSIDE RECORDS SUMMARY | 2024-09-11 13:11 | XMS_ITS | Encounter Summary ---
Author Organization [facility] Address [address] [place] [address] Care Team Providers Care Bereavement Program Coordinator Name Role Phone Caitlyn Bowie MD Primary Care Provider +1- [phone] Encounter Details Date Type Department Care Team (Late st Contact Info) Description 01/02/2024 Scanned Document INTERFACE DEFAULT [address] [place] [address] System, Provider Not In Social History Tobacco [...] EDT Procedure visit [facility] [address] [place] [address] [address] [place] [address] 10/31/2024 1:00 PM EDT Telemedicine Cancer Center at [facility] 240 [facility] Building [address] [place] [address] Ronald Mills MD 240 [facility] A1 [place] [address] documented as of this encounter Procedures Procedure [...] documented as of this encounter Care Teams Bereavement Program Coordinator Relationship Specialty Start Date End Date Caitlyn Bowie MD [facility] [address] [address] PCP - General Internal Medicine 05/06/21 documented as of this encounter
--- OUTSIDE RECORDS SUMMARY | 2024-09-11 13:11 | XMS_ITS | Encounter Summary ---
Author Organization [facility] Address 20 [place] [address] Care Team Providers Care Laborer Pullet Farm Name Role Phone Caitlyn Bowie MD Primary Care Provider +1- [phone] Encounter Details Date Type Department Care Team (Late Contact Info) Description 01/31/2023 Abstract [facility] Melanoma [facility] 35 [facility] [place] [address] Shilpi Romero, RN Social History Tobacco Use [...] Description 09/30/2024 8:30 PM EDT Procedure visit [facility] [address] [place] [address] [address] [place] [address] 10/31/2024 1:00 PM EDT Telemedicine Cancer Center at [address] [place] [address] Ronald Mills MD [address] [place] [address] [address] [place] [address] documented as of this encounter Visit Diagnoses Not on filedocumented in this encounter Additional Health Concerns Assessment Noted Time PHQ-9 Depression Total Score: 2 11/07/19 19 2:06 PM EDT documented as of this encounter Care Teams Laborer Pullet Farm Relationship Specialty Start Date End Date Caitlyn Bowie MD [address] [address] PCP - General Internal Medicine 05/06/21 documented as of this encounter
--- OUTSIDE RECORDS SUMMARY | 2024-09-11 13:11 | XMS_ITS | Encounter Summary ---
Author Organization [facility] Address [address] [place] [address] Care Team Providers Care Marking Stitcher Name Role Phone Caitlyn Bowie MD Primary Care Provider +1- [phone] Encounter Details Date Type Department Care Team (Late st Contact Info) Description 10/24/2022 Scanned Document INTERFACE DEFAULT [address] [place] [address] System, Provider Not In Social History Tobacco [...] Description 09/30/2024 8:30 PM EDT Procedure visit [facility] [address] [place] [address] [address] [place] [address] 10/31/2024 1:00 PM EDT Telemedicine Cancer Center at [facility] 240 [facility] [address] [place] [address] Ronald Mills MD 240 [facility] A1 [place] [address] documented as of this encounter Procedures Procedure [...] documented as of this encounter Care Teams Marking Stitcher Relationship Specialty Start Date End Date Caitlyn Bowie MD [address] [address] PCP - General Internal Medicine 05/06/21 documented as of this encounter
--- OUTSIDE RECORDS SUMMARY | 2024-09-11 13:11 | XMS_ITS | Encounter Summary ---
Author Organization [facility] Address [address] [place] [address] Care Team Providers Care Curb Setter Name Role Phone Caitlyn Bowie MD Primary Care Provider +1- [phone] Encounter Details Date Type Department Care Team (Late st Contact Info) Description 06/27/2022 Scanned Document INTERFACE DEFAULT [address] [place] [address] System, Provider Not In Social History Tobacco [...] 09/30/2024 8:30 PM EDT Procedure visit [facility] [address] [place] [address] [address] [place] [address] 10/31/2024 1:00 PM EDT Telemedicine Cancer Center at [facility] 240 [facility] Building [address] [place] [address] Ronald Mills MD 240 [facility] A1 [place] [address] documented as of this encounter Procedures Procedure [...] documented as of this encounter Care Teams Curb Setter Relationship Specialty Start Date End Date Caitlyn Bowie MD [facility] [address] [address] PCP - General Internal Medicine 05/06/21 documented as of this encounter
--- OUTSIDE RECORDS SUMMARY | 2024-09-11 13:11 | XMS_ITS | Encounter Summary ---
Author Organization [facility] Address [address] [place] [address] Care Team Providers Care Title I Coordinator Name Role Phone Caitlyn Bowie MD Primary Care Provider +1- [phone] Encounter Details Date Type Department Care Team (Late st Contact Info) Description 06/08/2022 Scanned Document INTERFACE DEFAULT [address] [place] [address] System, Provider Not In Social History Tobacco [...] Description 09/30/2024 8:30 PM EDT Procedure visit [facility] [address] [place] [address] [address] [place] [address] 10/31/2024 1:00 PM EDT Telemedicine Cancer Center at [facility] 240 [facility] [address] [place] [address] Ronald Mills MD 240 [facility] A1 [place] [address] documented as of this encounter Procedures Procedure [...] documented as of this encounter Care Teams Title I Coordinator Relationship Specialty Start Date End Date Caitlyn Bowie MD [address] [address] PCP - General Internal Medicine 05/06/21 documented as of this encounter
--- OUTSIDE RECORDS SUMMARY | 2024-09-11 13:11 | XMS_ITS | Encounter Summary ---
Author Organization [facility] Address [address] [place] [address] Care Team Providers Care Merchandise Clerk Name Role Phone Caitlyn Bowie MD Primary Care Provider +1- [phone] Encounter Details Date Type Department Care Team (Late st Contact Info) Description 07/07/2021 Scanned Document INTERFACE DEFAULT [address] [place] [address] System, Provider Not In Social History Tobacco [...] Description 09/30/2024 8:30 PM EDT Procedure visit [facility] [address] [place] [address] [address] [place] [address] 10/31/2024 1:00 PM EDT Telemedicine [facility] at [facility] 240 [facility] Building [address] [place] [address] Ronald Mills MD 240 [facility] A1 [place] [address] documented as of this encounter Visit Diagnoses Not on filedocumented in this encounter Additional Health Concerns Infection Onset Date Last Indicated Resolved Time COVID-19 03/05/2022 03/05/2022 03/15/2022 7:18 PM EDT Assessment Noted Time PHQ-9 Depression Total Score: 2 11/07/19 19 2:06 PM EDT documented as of this encounter Care Teams Merchandise Clerk Relationship Specialty Start Date End Date Caitlyn Bowie MD [address] [address] PCP - General Internal Medicine 05/06/21 documented as of this encounter
--- OUTSIDE RECORDS SUMMARY | 2024-09-11 13:11 | XMS_ITS | Encounter Summary ---
Author Organization [facility] Address [address] [place] [address] Care Team Providers Care Funeral Service Licensee Name Role Phone Caitlyn Bowie MD Primary Care Provider +1- [phone] Encounter Details Date Type Department Care Team (Late st Contact Info) Description 06/23/2022 Scanned Document INTERFACE DEFAULT [address] [place] [address] System, Provider Not In Social History Tobacco [...] EDT Procedure visit [facility] [address] [place] [address] [address] [place] [address] 10/31/2024 1:00 PM EDT Telemedicine [facility] 240 [facility] Building [address] [place] [address] Ronald Mills MD 240 [facility] A1 [place] [address] documented as of this encounter Visit Diagnoses Not on filedocumented in this encounter Additional Health Concerns Assessment Noted Time PHQ-9 Depression Total Score: 2 11/07/19 19 2:06 PM EDT documented as of this encounter Care Teams Funeral Service Licensee Relationship Specialty Start Date End Date Caitlyn Bowie MD [address] [address] PCP - General Internal Medicine 05/06/21 documented as of this encounter
--- OUTSIDE RECORDS SUMMARY | 2024-09-11 13:11 | XMS_ITS | Encounter Summary ---
Author Organization [facility] Address [address] [place] [address] Care Team Providers Care Hot Strip Mill Supervisor Name Role Phone Caitlyn Bowie MD Primary Care Provider +1- [phone] Encounter Details Date Type Department Care Team (Late st Contact Info) Description 09/07/2021 Scanned Document INTERFACE DEFAULT [address] [place] [address] System, Provider Not In Social History Tobacco [...] Description 09/30/2024 8:30 PM EDT Procedure visit [facility] [address] [place] [address] [address] [place] [address] 10/31/2024 1:00 PM EDT Telemedicine Cancer Center at [facility] 240 [facility] [address] [place] [address] Ronald Mills MD 240 [facility] A1 [place] [address] documented as of this encounter Procedures Procedure [...] of this encounter Care Teams Hot Strip Mill Supervisor Relationship Specialty Start Date End Date Caitlyn Bowie MD [facility] [address] [address] PCP - General Internal Medicine 05/06/21 documented as of this encounter
--- OUTSIDE RECORDS SUMMARY | 2024-09-11 13:11 | XMS_ITS | Encounter Summary ---
Author Organization [facility] Address 20 [place] [address] Care Team Providers Care Brick Carrier Name Role Phone Caitlyn Bowie MD Primary Care Provider +1- [phone] Encounter Details Date Type Department Care Team (Late st Contact Info) Description 08/23/2022 Abstract Cardiovascular Medicine at [address] [place] [address] Norma Renee MD [address] [place] [phone] Social History Tobacco Use Types Packs/Day Years [...] Description 09/30/2024 8:30 PM EDT Procedure visit [facility] [address] [place] [address] [address] [place] [address] 10/31/2024 1:00 PM EDT Telemedicine Cancer Center at [address] [facility] [place] [address] Ronald Mills MD [address] [place] [address] documented as of this encounter Visit Diagnoses Not on filedocumented in this encounter Additional Health Concerns Assessment Noted Time PHQ-9 Depression Total Score: 2 11/07/19 19 2:06 PM EDT documented as of this encounter Care Teams Brick Carrier Relationship Specialty Start Date End Date Caitlyn Bowie MD 3400 [facility] 1 [place] [address] PCP - General Internal Medicine 05/06/21 documented as of this encounter
--- OUTSIDE RECORDS SUMMARY | 2024-09-11 13:11 | XMS_ITS | Encounter Summary ---
Author Organization [facility] Address [address] [place] [address] Care Team Providers Care Project Engineering Director Name Role Phone Caitlyn Bowie MD Primary Care Provider +1- [phone] Encounter Details Date Type Department Care Team (Late st Contact Info) Description 07/06/2021 Scanned Document INTERFACE DEFAULT [address] [place] [address] System, Provider Not In Social History Tobacco [...] Description 09/30/2024 8:30 PM EDT Procedure visit [facility] [address] [place] [address] [address] [place] [address] 10/31/2024 1:00 PM EDT Telemedicine [facility] at [facility] [address] [facility] Building [address] [place] [address] Ronald Mills MD 240 [facility] A1 [place] [address] documented as of this encounter Visit Diagnoses Not on filedocumented in this encounter Additional Health Concerns Infection Onset Date Last Indicated Resolved Time COVID-19 03/05/2022 03/05/2022 03/15/2022 7:18 PM EDT Assessment Noted Time PHQ-9 Depression Total Score: 2 11/07/19 19 2:06 PM EDT documented as of this encounter Care Teams Project Engineering Director Relationship Specialty Start Date End Date Caitlyn Bowie MD [address] [address] PCP - General Internal Medicine 05/06/21 documented as of this encounter
--- OUTSIDE RECORDS SUMMARY | 2024-09-11 13:11 | XMS_ITS | Encounter Summary ---
Author Organization [facility] Address [address] [place] [address] Care Team Providers Care Tele Tech Name Role Phone Caitlyn Bowie MD Primary Care Provider +1- [phone] Encounter Details Date Type Department Care Team (Late st Contact Info) Description 12/06/2018 Scanned Document [facility] Health Information Management [address] [place] [address] External, Provider Social History Tobacco Use Types [...] Description 09/30/2024 8:30 PM EDT Procedure visit [facility] [address] [place] [address] [address] [place] [address] 10/31/2024 1:00 PM EDT Telemedicine Cancer [facility] at [facility] 240 [facility] Building [address] [place], [place] [address] Ronald Mills MD 240 [facility] A1 [place] [address] documented as of this encounter [...] documented as of this encounter Care Teams Tele Tech Relationship Specialty Start Date End Date Caitlyn Bowie MD 3400 [facility] 1 [place] [address] PCP - General Internal Medicine 05/06/21 Henry Kelly MD Pulmonary Department [address] [place] [address], [address] [place] [address] Physician Pulmonary Disease 09/06/17 06/22/20 documented as of this encounter
--- OUTSIDE RECORDS SUMMARY | 2024-09-11 13:11 | XMS_ITS | Encounter Summary ---
Author Organization [facility] and [facility] Address [address] [place] [address] Care Team Providers Care Personal Lines Account Executive Name Role Phone Caitlyn Bowie MD Primary Care Provider +1- [phone] Encounter Details Date Type Department Care Team (Late st Contact Info) Description 09/24/2015 Scanned Document Digestive Diseases at 40 [facility] [address] [address] Kevin Espinoza MD [address] [place] [address] Social History Tobacco Use Types Packs/Day [...] Description 09/30/2024 8:30 PM EDT Procedure visit [facility] [address] [place] [address] [address] [place] [address] 10/31/2024 1:00 PM EDT Telemedicine Cancer Center at [address] [place] [address] Ronald Mills MD [address] [place] [address] [address] [place] [address] documented as of this encounter Visit Diagnoses Not on filedocumented in this encounter Additional Health Concerns Infection Onset Date Last Indicated Resolved Time COVID-19 03/05/2022 03/05/2022 03/15/2022 7:18 PM EDT documented as of this encounter Care Teams Personal Lines Account Executive Relationship Specialty Start Date End Date Caitlyn Bowie MD 3400 [facility] 1 [place] [address] PCP - General Internal Medicine 05/06/21 Henry Kelly MD Pulmonary Department 175 [facility], [address] [place] [address] Physician Pulmonary Disease 09/06/17 06/22/20 documented as of this encounter
--- OUTSIDE RECORDS SUMMARY | 2024-09-11 13:11 | XMS_ITS | Encounter Summary ---
Author Organization [facility] and [facility] Address [address] [place] [address] Care Team Providers Care Casing Wringer Operator Name Role Phone Caitlyn Bowie MD Primary Care Provider +1- [phone] Encounter Details Date Type Department Care Team (Late st Contact Info) Description 09/10/2021 Scanned Document Cardiovascular Medicine at [address] [address] Norma Renee MD [address] [place] [phone] Social History Tobacco Use Types Packs/Day Years [...] Description 09/30/2024 8:30 PM EDT Procedure visit [facility] [address] [place] [address] [address] [place] [address] 10/31/2024 1:00 PM EDT Telemedicine Cancer Center at [address] [place], [place] [address] Ronald Mills MD [address] [employer] [address] [place] [address] documented as of this encounter Visit Diagnoses Not on filedocumented in this encounter Additional Health Concerns Infection Onset Date Last Indicated Resolved Time COVID-19 03/05/2022 03/05/2022 03/15/2022 7:18 PM EDT Assessment Noted Time PHQ-9 Depression Total Score: 2 11/07/19 19 2:06 PM EDT documented as of this encounter Care Teams Casing Wringer Operator Relationship Specialty Start Date End Date Caitlyn Bowie MD [address] [address] PCP - General Internal Medicine 05/06/21 documented as of this encounter
--- OUTSIDE RECORDS SUMMARY | 2024-09-11 13:11 | XMS_ITS | Encounter Summary ---
Author Organization [facility] and [facility] Address [address] [place] [address] Care Team Providers Care Quality Lab Technician Name Role Phone Caitlyn Bowie MD Primary Care Provider +1- [phone] Reason for Visit * Reason Comments Triage extream dry skin Encounter Details Date Type Department Care Team ([facility] st Contact Info) Description 05/12/2023 Telephone Medical Dermatology at [address] [address] Augustine Vargas MD [address] [place] [address] Triage (extream dry skin) Social History [...] to her by Dr. Vargas at the [facility]. Requested that she send pictures which [...] know if there's something the can prescribe. [phone] documented in this encounter Plan of Treatment Upcoming Encounters Date Type Department Care Team (Late st Contact Info) Description 09/30/2024 8:30 PM EDT Procedure visit [facility] [address] [place] [address] [address] [place] [address] 10/31/2024 1:00 PM EDT Telemedicine Cancer Center at [facility] 240 [facility] Building [address] [place] [address] Ronald Mills MD 240 [facility] [address] [place] [phone] documented as of this encounter Visit Diagnoses Not on filedocumented in this encounter Additional Health Concerns Assessment Noted Time PHQ-9 Depression Total Score: 2 11/07/19 19 2:06 PM EDT documented as of this encounter Care Teams Quality Lab Technician Relationship Specialty Start Date End Date Caitlyn Bowie MD [address] [address] PCP - General Internal Medicine 05/06/21 documented as of this encounter
--- OUTSIDE RECORDS SUMMARY | 2024-09-11 13:11 | XMS_ITS | Encounter Summary ---
Author Organization [facility] Address [address] [place] [address] Care Team Providers Care Yarn Sizer Name Role Phone Pcp, No Primary Care Provider Brennan Mario MD Primary Care Provider [phone] Caitlyn Bowie MD Primary Care Provider +1- [phone] Encounter Details Date Type Department Care Team (Late st Contact Info) Description 01/04/2022 Scanned Document [facility] Neurology Ophthalmology [address] [address] Yary Whitten DO [address] [place] [address] Social History Tobacco Use Types Packs/Day [...] on filedocumented in this encounter Care Teams Yarn Sizer Relationship Specialty Start Date End Date Pcp, No PCP - General General Medicine 10/04/21 07/18/22 Brennan Burnett MD [address] [place] [address] PCP - General 07/19/22 03/19/23 Caitlyn Bowie MD 3400 [place] [address] PCP - General Internal Medicine 03/20/23 documented as of this encounter
--- OUTSIDE RECORDS SUMMARY | 2024-09-11 13:11 | XMS_ITS | Encounter Summary ---
Author Organization [facility] and [facility] Address [address] [place] [address] Care Team Providers Care Tumbler Plater Name Role Phone Caitlyn Bowie MD Primary Care Provider +1- [phone] Encounter Details Date Type Department Care Team (Late st Contact Info) Description 09/01/2023 Scanned Document INTERFACE DEFAULT [address] [place] [address] System, Provider Not In Social History Tobacco [...] Description 09/30/2024 8:30 PM EDT Procedure visit [facility] [address] [place] [address] [address] [place] [phone] 10/31/2024 1:00 PM EDT Telemedicine Cancer Center at [facility] 240 [facility] [address] [place] [address] Ronald Mills MD 240 [facility] A1 [place] [phone] documented as of this encounter Visit Diagnoses Not on filedocumented in this encounter Additional Health Concerns Assessment Noted Time PHQ-9 Depression Total Score: 2 11/07/19 19 2:06 PM EDT documented as of this encounter Care Teams Tumbler Plater Relationship Specialty Start Date End Date Caitlyn Bowie MD [address] [address] PCP - General Internal Medicine 05/06/21 documented as of this encounter
--- OUTSIDE RECORDS SUMMARY | 2024-09-11 13:11 | XMS_ITS | Encounter Summary ---
Author Organization [facility] Address [address] [place] [address] Care Team Providers Care Director Staffing Name Role Phone Caitlyn Bowie MD Primary Care Provider +1- [phone] Encounter Details Date Type Department Care Team (Late st Contact Info) Description 05/16/2023 Scanned Document INTERFACE DEFAULT [address] [place] [address] System, Provider Not In Social History Tobacco [...] Procedure visit [facility] [address] [place] [address] [address] [place] [address] 10/31/2024 1:00 PM EDT Telemedicine Cancer Center at [facility] 240 [facility] [address] [place] [address] Ronald Mills MD 240 [facility] A1 [place] [phone] documented as of this encounter Procedures Procedure [...] as of this encounter Care Teams Director Staffing Relationship Specialty Start Date End Date Caitlyn Bowie MD [address] [address] PCP - General Internal Medicine 05/06/21 documented as of this encounter
--- OUTSIDE RECORDS SUMMARY | 2024-09-11 13:11 | XMS_ITS | Encounter Summary ---
Author Organization [facility] Address [address] [place] [address] Care Team Providers Care Practice Specialist Name Role Phone Caitlyn Bowie MD Primary Care Provider +1- [phone] Encounter Details Date Type Department Care Team (Late st Contact Info) Description 09/28/2015 Scanned Document [facility] Health Information Management [address] [place] [address] External, Provider Social History Tobacco Use Types [...] Description 09/30/2024 8:30 PM EDT Procedure visit [facility] [address] [place] [address] [address] [place] [address] 10/31/2024 1:00 PM EDT Telemedicine [facility] at [facility] 240 [facility] Building [address] [place], [place] [address] Ronald Mills MD 240 [facility] A1 [place] [phone] documented as of this encounter Procedures Procedure Name Priority Date/Time Associated Diagnosis Comments LAB SCAN Routine 09/09/2015 documented in this encounter Results * Lab Scan (09/09/2015) Blood specimen (specimen) us Provider External LAB BLOOD ORDERABLES Final Res ult Performing Organization Address City/State/[facility] Co de Phone Number [facility] documented in this encounter Visit Diagnoses Not on filedocumented in this encounter Additional Health Concerns Infection Onset Date Last Indicated Resolved Time COVID-19 03/05/2022 03/05/2022 03/15/2022 7:18 PM EDT documented as of this encounter Care Teams Practice Specialist Relationship Specialty Start Date End Date Caitlyn Bowie MD 3400 [facility] Max 1 [place] [address] PCP - General Internal Medicine 05/06/21 Henry Kelly MD Pulmonary Department 175 [facility], [address] [place] [address] Physician Pulmonary Disease 09/06/17 06/22/20 documented as of this encounter
--- OUTSIDE RECORDS SUMMARY | 2024-09-11 13:12 | XMS_ITS | Encounter Summary ---
Author Organization [facility] and [facility] Address [address] [place] [address] Care Team Providers Care Sales Facilitator Name Role Phone Ciatlyn Bowie MD Primary Care Provider +1- [phone] Encounter Details Date Type Department Care Team (Late st Contact Info) Description 04/28/2022 Scanned Document INTERFACE DEFAULT [address] [place] [address] System, Provider Not In Social History Tobacco [...] 09/30/2024 8:30 PM EDT Procedure visit [facility] [address] [place] [address] [address] [place] [address] 10/31/2024 1:00 PM EDT Telemedicine Cancer Center at [facility] 240 [facility] [address] [place] [address] Ronald Mills MD 240 [facility] A1 [place] [address] documented as of this encounter Procedures Procedure [...] as of this encounter Care Teams Sales Facilitator Relationship Specialty Start Date End Date Caitlyn Bowie MD [facility] [address] [address] PCP - General Internal Medicine 05/06/21 documented as of this encounter
--- OUTSIDE RECORDS SUMMARY | 2024-09-11 13:12 | XMS_ITS | Encounter Summary ---
Author Organization [facility] and [facility] Address [address] [place] [address] Care Team Providers Care Jockey'S Agent Name Role Phone Caitlyn Bowie MD Primary Care Provider +1- [phone] Encounter Details Date Type Department Care Team (Latest Contact Info) Description 12/25/2015 Transcribed Orders [facility] [address] [facility] [place] [address] Osmel Briscoe MD Other abnormality of red [...] Description 09/30/2024 8:30 PM EDT Procedure visit [facility] [address] [place] [address] [address] [place] [address] 10/31/2024 1:00 PM EDT Telemedicine Cancer Center at [address] [place], [place] [phone] Ronald Mills MD [address] [place] [address] documented as of this encounter Results * Free kappa lambda with ratio, serum ( GH Q YH) (12/25/2015 10:09 AM EDT) Ig [place] Free Light Chain 1.84 0.33 - 1.94 mg/dL [facility] Ig Lambda Free Light Chain 1.96 0.57 - 2.63 mg/dL [facility] [place]/Lambda FLC Ratio 0.94 0.26 - 1.65 [facility] Blood specimen (specimen) 12/25/2015 10:09 AM EDT Osmel Briscoe MD LAB BLOOD ORDERABLES Final R [facility] Performing Organization Address [facility] Co de Phone Number [facility] [address] [place] [phone] * Immunofixation, serum (GH L Q YH) (12/25/2015 10:09 AM EDT) Pathologist [facility] Immunofixation Electrophoresis Gel See below See Interp. [facility] Comment: INTERPRETATION: Normal immunofixation electrophoresis. No evidence of a serum monoclonal component. SIGNED BY:Keyur KAYE MD ON 12/29/2015 14:56:04 INTERPRETATION REVIEW : I have reviewed these results and agree with this interpretation. Blood specimen (specimen) 12/25/2015 10:09 AM EDT Osmel Briscoe MD LAB BLOOD ORDERABLES Final R esult Performing Organization Address City/[facility] Co de Phone Number [facility] [address] [place] [phone] * (ABNORMAL) Protein electrophoresis, serum ( GH L YH) (12/25/2015 10:09 AM EDT) Pathologist [facility] Albumin Electrophoresis 3.45(L) 3.50 - 4.70 g/dL [facility] Tkqcm-5-Cfpgcevr 0.16 0.10 - 0.30 g/dL [facility] Jiofn-9-Kvbinllq 0.81 0.60 - 1.00 g/dL [facility] Beta Globulin 0.86 0.70 - 1.20 g/dL [facility] Gamma Globulin 0.92 0.70 - 1.50 g/dL [facility] SPEP Interpretation See below See Interp. [facility] Comment: INTERPRETATION: No discrete abnormal [...] ORDERABLES Final R esult Performing Organization Address [facility] Co de Phone Number [facility] [address] [place] [address] * Reticulocytes (GH L Q YH) (12/25/2015 10:09 AM EDT) [facility] Reticulocyte Count 2.1 0.6 - 2.7 % [facility] Blood specimen (specimen) 12/25/2015 10:09 AM EDT Osmel Briscoe MD LAB BLOOD ORDERABLES Final R esult Performing Organization Address [facility] Co de Phone Number [facility] [address] [place] [phone] * (ABNORMAL) Sedimentation rate (ESR) (12/25/2015 10:09 AM EDT) [facility] Sed Rate 27(H) 0 - 20 mm/hr [facility] Blood specimen (specimen) 12/25/2015 10:09 AM EDT us Osmel Briscoe MD LAB BLOOD ORDERABLES Final R esult Performing Organization Address [facility] Co de Phone Number [facility] [address] [place] [address] * Ferritin (12/25/2015 10:09 AM EDT) Ferritin 68 9 - 120 ng/mL [facility] Blood specimen (specimen) 12/25/2015 10:09 AM EDT Osmel Briscoe MD LAB BLOOD ORDERABLES Final R esult Performing Organization Address [facility] de Phone Number [facility] [address] [place] [address] * Iron and TIBC (12/25/2015 10:09 AM EDT) Iron 110 50 - 170 ug/dL [facility] TIBC 290 250 - 450 ug/dL [facility] Iron Saturation 38 15 - 50 [facility] Blood specimen (specimen) 12/25/2015 10:09 AM EDT us Osmel Briscoe MD LAB BLOOD ORDERABLES Final R esult Performing Organization Address [facility] de Phone Number [facility] [address] [place] [phone] * Vitamin D 25 hydroxy (BH L YH) (12/25/2015 10:09 AM EDT) Vit D, 25-Hydroxy 43 20 - 50 ng/mL [facility] Comment: A serum 25(OH) vitamin [...] ORDERABLES Final R esult Performing Organization Address [facility] Co de Phone Number [facility] [address] [place] [address] * TSH ( L YH) (12/25/2015 10:09 AM EDT) TSH cancelled 0.3 - 4.2 uU/mL [facility] TSH 1.62 0.3 - 4.2 uU/mL [facility] Comment:This test is a third generation TSH assay. Blood specimen (specimen) 12/25/2015 10:09 AM EDT Osmel Briscoe MD LAB BLOOD ORDERABLES Final R esult Performing Organization Address [facility] Co de Phone Number [facility] [address] [place] [phone] * (ABNORMAL) CBC and differential (12/25/2015 10:09 AM EDT) CBC with Differential See Below [facility] WBC 9.9 4.0 - 10.0 x 1000/uL [facility] RBC 4.0 3.8 - 5.2 M/uL [facility] Hemoglobin 13.4 12.0 - 16.0 g/dL [facility] Hematocrit 41.0 37.0 - 47.0 % [facility] MCV 101(H) 78 - 94 fL [facility] MCH 33.2(H) 27.0 - 33.0 pg [facility] MCHC 32.8(L) 33.0 - 37.0 g/dL [facility] RDW 12.5 10.8 - 14.5 % [facility] Platelets 265 150 - 350 x 1000/uL [facility] MPV 7.2 6.0 - 10.0 fL [facility] Neutrophils 82(H) 38 - 71 % [facility] Lymphocytes 7(L) 14 - 46 % [facility] Monocytes 10 2 - 15 % [facility] Eosinophils 1 0 - 5 % [facility] Basophils 0 0 - 2 % [facility] ANC (Abs Neutrophil Count) 8.1 1.0 - 9.0 x 1000/uL [facility] Absolute Lymphocyte Count 0.7 0.6 - 4.6 x 1000/uL [facility] Blood specimen (specimen) ARM NEC / Unknown 12/25/2015 10:09 AM EDT us Osmel Briscoe MD LAB BLOOD ORDERABLES Final R esult Performing Organization Address City/State/[facility] Co de Phone Number [facility] [address] [place] [phone] documented in this encounter Visit Diagnoses Diagnosis [...] documented as of this encounter Care Teams Jockey'S Agent Relationship Specialty Start Date End Date Caitlyn Bowie MD 3405 [facility] 1 [place] [address] PCP - General Internal Medicine 05/06/21 Henry Kelly MD Pulmonary Department 175 [facility], [address] [place] [address] Physician Pulmonary Disease 09/06/17 06/22/20 documented as of this encounter
--- OUTSIDE RECORDS SUMMARY | 2024-09-11 13:12 | XMS_ITS | Encounter Summary ---
Author Organization [facility] Address [address] [place] [address] Care Team Providers Care Utility Operator Name Role Phone Caitlyn Bowie MD Primary Care Provider +1- [phone] Encounter Details Date Type Department Care Team (Late st Contact Info) Description 09/09/2015 Scanned Document [facility] Health Information Management [address] [place] [address] External, Provider Social History Tobacco Use Types [...] Description 09/30/2024 8:30 PM EDT Procedure visit [facility] [address] [place] [address] [address] [place] [address] 10/31/2024 1:00 PM EDT Telemedicine Cancer Center at [facility] 240 [facility] Building [address] [place], [place] [address] Ronald Mills MD 240 [facility] A1 [place] [phone] documented as of this encounter Procedures Procedure Name Priority Date/Time Associated Diagnosis Comments LAB SCAN Routine 09/09/2015 documented in this encounter Results * Lab Scan (09/09/2015) Blood specimen (specimen) us Provider External LAB BLOOD ORDERABLES Final Res ult Performing Organization Address City/State/[facility] Co de Phone Number [facility] documented in this encounter Visit Diagnoses Not on filedocumented in this encounter Additional Health Concerns Infection Onset Date Last Indicated Resolved Time COVID-19 03/05/2022 03/05/2022 03/15/2022 7:18 PM EDT documented as of this encounter Care Teams Utility Operator Relationship Specialty Start Date End Date Caitlyn Bowie MD 3400 [facility] [address] 1 [place] [address] PCP - General Internal Medicine 05/06/21 Henry Kelly MD Pulmonary Department 175 [facility], [address] [place] [address] Physician Pulmonary Disease 09/06/17 06/22/20 documented as of this encounter
--- OUTSIDE RECORDS SUMMARY | 2024-09-11 13:12 | XMS_ITS | Encounter Summary ---
Author Organization [facility] Address [address] [place] [address] Care Team Providers Care Compliance Aide Name Role Phone Caitlyn Bowie MD Primary Care Provider +1- [phone] Encounter Details Date Type Department Care Team (Late st Contact Info) Description 04/22/2019 Scanned Document [facility] Health Information Management [address] [place] [phone] External, Provider Social History Tobacco Use Types [...] Description 09/30/2024 8:30 PM EDT Procedure visit [facility] [address] [place] [address] [address] [place] [address] 10/31/2024 1:00 PM EDT Telemedicine Cancer [facility] at [facility] 240 [facility] [address] [place] [address] Ronald Mills MD 240 [facility] A1 [place] [address] documented as of this encounter Visit Diagnoses Not on filedocumented in this encounter Additional Health Concerns Infection Onset Date Last Indicated Resolved Time COVID-19 03/05/2022 03/05/2022 03/15/2022 7:18 PM EDT Assessment Noted Time PHQ-9 Depression Total Score: 2 11/07/19 19 2:06 PM EDT documented as of this encounter Care Teams Compliance Aide Relationship Specialty Start Date End Date Caitlyn Bowie MD 3400 [facility] 1 [place] [address] PCP - General Internal Medicine 05/06/21 Henry Kelly MD Pulmonary Department [address] [place] [address], [address] [place] [address] Physician Pulmonary Disease 09/06/17 06/22/20 documented as of this encounter
--- OUTSIDE RECORDS SUMMARY | 2024-09-11 13:12 | XMS_ITS | Encounter Summary ---
Author Organization [facility] Address [address] [place] [address] Care Team Providers Care Drop Hammer Setter Up Name Role Phone Pcp, No Primary Care Provider Brennan Mario MD Primary Care Provider [phone] Caitlyn Bowie MD Primary Care Provider [phone]- [phone] Encounter Details Date Type Department Care Team (Late st Contact Info) Description 01/04/2022 Scanned Document [facility] Neurology Ophthalmology [address] [address] Yary Whitten DO [address] [place] [address] Social History Tobacco Use Types Packs/Day [...] on filedocumented in this encounter Care Teams Drop Hammer Setter Up Relationship Specialty Start Date End Date Pcp, No PCP - General General Medicine 10/04/21 07/18/22 Brennan Burnett MD [address] [place] [address] PCP - General 07/19/22 03/19/23 Caitlyn Bowie MD [address] [place] [address] PCP - General Internal Medicine 03/20/23 documented as of this encounter
--- OUTSIDE RECORDS SUMMARY | 2024-09-11 13:12 | XMS_ITS | Encounter Summary ---
Author Organization [facility] and [facility] Address [address] [place] [address] Care Team Providers Care Supervisor Twisting Department Name Role Phone Caitlyn Bowie MD Primary Care Provider +1- [phone] Encounter Details Date Type Department Care Team (Late st Contact Info) Description 01/28/2019 Scanned Document [facility] Health Information Management [address] [place] [address] External, Provider Social History Tobacco Use Types [...] Description 09/30/2024 8:30 PM EDT Procedure visit [facility] [address] [place] [address] [address] [place] [address] 10/31/2024 1:00 PM EDT Telemedicine [facility] at [facility] 240 [facility] [address] [place] [address] Ronald Mills MD 240 [facility] A1 [place] [address] documented as of this encounter Visit Diagnoses Not on filedocumented in this encounter Additional Health Concerns Infection Onset Date Last Indicated Resolved Time COVID-19 03/05/2022 03/05/2022 03/15/2022 7:18 PM EDT Assessment Noted Time PHQ-9 Depression Total Score: 2 11/07/19 19 2:06 PM EDT documented as of this encounter Care Teams Supervisor Twisting Department Relationship Specialty Start Date End Date Caitlyn Bowie MD 3400 [facility] 1 [place] [address] PCP - General Internal Medicine 05/06/21 Henry Kelly MD Pulmonary Department [address] [place] [address], [address] [place] [address] Physician Pulmonary Disease 09/06/17 06/22/20 documented as of this encounter
--- OUTSIDE RECORDS SUMMARY | 2024-09-11 13:12 | XMS_ITS | Encounter Summary ---
Author Organization [facility] and [facility] Address [address] [place] [address] Care Team Providers Care Kitchen Bath Designer Name Role Phone Caitlyn Bowie MD Primary Care Provider +1- [phone] Encounter Details Date Type Department Care Team (Late st Contact Info) Description 12/03/2015 Scanned Document [facility] Health Information Management [address] [place] [address] External, Provider Social History Tobacco Use Types [...] 09/30/2024 8:30 PM EDT Procedure visit [facility] [address] [place] [address] [address] [place] [address] 10/31/2024 1:00 PM EDT Telemedicine Cancer Center at [facility] 240 [facility] Building [address] [place], [place] [address] Ronald Mills MD 240 [facility] A1 [place] [address] documented as of this encounter Procedures Procedure Name Priority Date/Time Associated Diagnosis Comments LAB SCAN Routine 12/03/2015 documented in this encounter Results * Lab Scan (12/03/2015) Blood specimen (specimen) us Provider External LAB BLOOD ORDERABLES Edited Re sult - Final [facility] [place], [place], [facility] documented in this encounter Visit Diagnoses Not on filedocumented in this encounter Additional Health Concerns Infection Onset Date Last Indicated Resolved Time COVID-19 03/05/2022 03/05/2022 03/15/2022 7:18 PM EDT documented as of this encounter Care Teams Kitchen Bath Designer Relationship Specialty Start Date End Date Caitlyn Bowie MD 3400 [facility] 1 [place] [address] PCP - General Internal Medicine 05/06/21 Henry Kelly MD Pulmonary Department 175 [facility], [address] [place] [address] Physician Pulmonary Disease 09/06/17 06/22/20 documented as of this encounter
--- OUTSIDE RECORDS SUMMARY | 2024-09-11 13:12 | XMS_ITS | Encounter Summary ---
Author Organization [facility] Address [address] [place] [address] Care Team Providers Care Die Equipment Operator Name Role Phone Caitlyn Bowie MD Primary Care Provider +1- [phone] Encounter Details Date Type Department Care Team (Late st Contact Info) Description 11/04/2015 Scanned Document [facility] Health Information Management [address] [place] [address] External, Provider Social History Tobacco Use Types [...] Description 09/30/2024 8:30 PM EDT Procedure visit [facility] [address] [place] [address] [address] [place] [address] 10/31/2024 1:00 PM EDT Telemedicine [facility] at [facility] 240 [facility] Building [address] [place], [place] [address] Ronald Mills MD 240 [facility] A1 [place] [address] documented as of this encounter Procedures Procedure Name Priority Date/Time Associated Diagnosis Comments NUC MED/PET RESULT SCAN Routine 11/04/2015 documented in this encounter Results * Nuc Med/PET Result Scan (11/04/2015) us Provider External IMG SCAN REPORTS Edited Result - Final [facility] documented in this encounter Visit Diagnoses Not on filedocumented in this encounter Additional Health Concerns Infection Onset Date Last Indicated Resolved Time COVID-19 03/05/2022 03/05/2022 03/15/2022 7:18 PM EDT documented as of this encounter Care Teams Die Equipment Operator Relationship Specialty Start Date End Date Caitlyn Bowie MD 3400 [facility] 1 [place] [address] PCP - General Internal Medicine 05/06/21 Henry Kelly MD Pulmonary Department 175 [facility], [address] [place] [address] Physician Pulmonary Disease 09/06/17 06/22/20 documented as of this encounter
--- OUTSIDE RECORDS SUMMARY | 2024-09-11 13:12 | XMS_ITS | Encounter Summary ---
Author Organization [facility] Address [address] [place] [address] Care Team Providers Care Director Corporate Sales Name Role Phone Caitlyn Bowie MD Primary Care Provider +1- [phone] Encounter Details Date Type Department Care Team (Late st Contact Info) Description 04/22/2022 Scanned Document INTERFACE DEFAULT [address] [place] [address] System, Provider Not In Social History Tobacco [...] 09/30/2024 8:30 PM EDT Procedure visit [facility] [address] [place] [address] [address] [place] [address] 10/31/2024 1:00 PM EDT Telemedicine [facility] at [facility] 240 [facility] [address] [place] [address] Ronald Mills MD 240 [facility] A1 [place] [address] documented as of this encounter Procedures Procedure [...] as of this encounter Care Teams Director Corporate Sales Relationship Specialty Start Date End Date Caitlyn Bowie MD [address] [address] PCP - General Internal Medicine 05/06/21 documented as of this encounter
--- OUTSIDE RECORDS SUMMARY | 2024-09-11 13:12 | XMS_ITS | Encounter Summary ---
Author Organization [facility] Address [address] [place] [address] Care Team Providers Care Cartographic Technician Name Role Phone Caitlyn Bowie MD Primary Care Provider +1- [phone] Encounter Details Date Type Department Care Team (Late st Contact Info) Description 04/12/2022 Scanned Document INTERFACE DEFAULT [address] [place] [address] System, Provider Not In Social History Tobacco [...] Description 09/30/2024 8:30 PM EDT Procedure visit [facility] [address] [place] [address] [address] [place] [address] 10/31/2024 1:00 PM EDT Telemedicine Cancer Center at [facility] 240 [facility] [address] [place] [address] Ronald Mills MD 240 [facility] A1 [place] [address] documented as of this encounter Procedures Procedure [...] documented as of this encounter Care Teams Cartographic Technician Relationship Specialty Start Date End Date Caitlyn Bowie MD [address] [address] PCP - General Internal Medicine 05/06/21 documented as of this encounter
--- OUTSIDE RECORDS SUMMARY | 2024-09-11 13:12 | XMS_ITS | Encounter Summary ---
Author Organization [facility] and [facility] Address [address] [place] [address] Care Team Providers Care Tinning Machine Set Up Operator Name Role Phone Caitlyn Bowie MD Primary Care Provider +1- [phone] Encounter Details Date Type Department Care Team (Late st Contact Info) Description 01/17/2019 Scanned Document [facility] Health Information Management [address] [place] [address] External, Provider Social History Tobacco Use Types [...] Description 09/30/2024 8:30 PM EDT Procedure visit [facility] [address] [place] [address] [address] [place] [address] 10/31/2024 1:00 PM EDT Telemedicine Cancer Center at [facility] 240 [facility] [address] [place] [address] Ronald Mills MD 240 [facility] A1 [place] [address] documented as of this encounter Procedures Procedure [...] 3400 [facility] 1 [place] [address] PCP - General Internal Medicine 05/06/21 Henry Kelly MD Pulmonary Department 175 [facility], [address] [place] [address] Physician Pulmonary Disease 09/06/17 06/22/20 documented as of this encounter
--- OUTSIDE RECORDS SUMMARY | 2024-09-11 13:12 | XMS_ITS | Encounter Summary ---
Author Organization [facility] and [facility] Address [address] [place] [address] Care Team Providers Care Utilization Review Rn Name Role Phone Caitlyn Bowie MD Primary Care Provider +1- [phone] Encounter Details Date Type Department Care Team (Late st Contact Info) Description 01/28/2019 Scanned Document Cardiovascular Medicine at [address] [place] [address] Cristian Arreguin MBBS [address] [place] [address] Social History Tobacco Use Types [...] Description 09/30/2024 8:30 PM EDT Procedure visit [facility] [address] [place] [address] [address] [place] [address] 10/31/2024 1:00 PM EDT Telemedicine Cancer Center at [address] [place], [place] [address] Ronald Mills MD 240 [facility] A1 [place] [address] documented as of this encounter Visit Diagnoses Not on filedocumented in this encounter Additional Health Concerns Infection Onset Date Last Indicated Resolved Time COVID-19 03/05/2022 03/05/2022 03/15/2022 7:18 PM EDT Assessment Noted Time PHQ-9 Depression Total Score: 2 11/07/19 19 2:06 PM EDT documented as of this encounter Care Teams Utilization Review Rn Relationship Specialty Start Date End Date Caitlyn Bowie MD 3400 [facility] 1 [place] [address] PCP - General Internal Medicine 05/06/21 Henry Kelly MD Pulmonary Department 175 [facility], [address] [place] [address] Physician Pulmonary Disease 09/06/17 06/22/20 documented as of this encounter
--- OUTSIDE RECORDS SUMMARY | 2024-09-11 13:12 | XMS_ITS | Encounter Summary ---
Author Organization [facility] and [facility] Address [address] [place] [address] Care Team Providers Care Team Leader Surgery Name Role Phone Caitlyn Bowie MD Primary Care Provider +1- [phone] Encounter Details Date Type Department Care Team (Late st Contact Info) Description 04/11/2019 Scanned Document [facility] Health Information Management [address] [place] [address] External, Provider Social History Tobacco Use Types [...] Description 09/30/2024 8:30 PM EDT Procedure visit [facility] [address] [place] [address] [address] [place] [address] 10/31/2024 1:00 PM EDT Telemedicine Cancer Center at [facility] 240 [facility] [address] [place] [address] Ronald Mills MD 240 [facility] A1 [place] [address] documented as of this encounter Procedures Procedure [...] documented as of this encounter Care Teams Team Leader Surgery Relationship Specialty Start Date End Date Caitlyn Bowie MD 3400 [facility] 1 [place] [address] PCP - General Internal Medicine 05/06/21 Henry Kelly MD Pulmonary Department 175 [facility], [address] [place] [address] Physician Pulmonary Disease 09/06/17 06/22/20 documented as of this encounter
--- OUTSIDE RECORDS SUMMARY | 2024-09-11 13:12 | XMS_ITS | Encounter Summary ---
Author Organization [facility] and [facility] Address [address] [place] [address] Care Team Providers Care Automobile Radiator Mechanic Name Role Phone Caitlyn Bowie MD Primary Care Provider +1- [phone] Encounter Details Date Type Department Care Team (Late st Contact Info) Description 04/13/2022 Scanned Document INTERFACE DEFAULT [address] [place] [address] System, Provider Not In Social History Tobacco [...] EDT Procedure visit [facility] [address] [place] [address] [address] [place] [address] 10/31/2024 1:00 PM EDT Telemedicine [facility] at [facility] 240 [facility] [address] [place] [address] Ronald Mills MD 240 [facility] A1 [place] [address] documented as of this encounter Procedures Procedure [...] as of this encounter Care Teams Automobile Radiator Mechanic Relationship Specialty Start Date End Date Caitlyn Bowie MD [facility] [address] [address] PCP - General Internal Medicine 05/06/21 documented as of this encounter
--- OUTSIDE RECORDS SUMMARY | 2024-09-11 13:12 | XMS_ITS | Encounter Summary ---
Author Organization [facility] Address [address] [place] [address] Care Team Providers Care Home Security Alarm Installer Name Role Phone Caitlyn Bowie MD Primary Care Provider +1- [phone] Encounter Details Date Type Department Care Team (Late st Contact Info) Description 12/31/2015 Scanned Document [facility] [address] [place] [address] External, Provider Social History Tobacco Use Types [...] Description 09/30/2024 8:30 PM EDT Procedure visit [facility] [address] [place] [address] [address] [place] [address] 10/31/2024 1:00 PM EDT Telemedicine [facility] at [facility] 240 [facility] Building [address] [place], [place] [address] Ronald Mills MD 240 [facility] A1 [place] [address] documented as of this encounter Procedures Procedure Name Priority Date/Time Associated Diagnosis Comments LAB SCAN Routine 12/31/2015 documented in this encounter Results * Lab Scan (12/31/2015) Blood specimen (specimen) us Provider External LAB BLOOD ORDERABLES Final Res ult Performing Organization Address City/State/[facility] Co de Phone Number [facility] documented in this encounter Visit Diagnoses Not on filedocumented in this encounter Additional Health Concerns Infection Onset Date Last Indicated Resolved Time COVID-19 03/05/2022 03/05/2022 03/15/2022 7:18 PM EDT documented as of this encounter Care Teams Home Security Alarm Installer Relationship Specialty Start Date End Date Caitlyn Bowie MD 3400 [facility] 1 [place] [address] PCP - General Internal Medicine 05/06/21 Henry Kelly MD Pulmonary Department 175 [facility], [address] [place] [address] Physician Pulmonary Disease 09/06/17 06/22/20 documented as of this encounter
--- OUTSIDE RECORDS SUMMARY | 2024-09-11 13:12 | XMS_ITS | Encounter Summary ---
Author Organization [facility] and [facility] Address [address] [place] [address] Care Team Providers Care Solutions Architect Consultant Name Role Phone Caitlyn Bowie MD Primary Care Provider +1- [phone] Encounter Details Date Type Department Care Team (Late st Contact Info) Description 01/08/2022 Scanned Document INTERFACE DEFAULT [address] [place] [address] System, Provider Not In Social History Tobacco [...] Description 09/30/2024 8:30 PM EDT Procedure visit [facility] [address] [place] [address] [address] [place] [address] 10/31/2024 1:00 PM EDT Telemedicine Cancer Center at [facility] 240 [facility] [address] [place] [address] Ronald Mills MD 240 [facility] A1 [place] [address] documented as of this encounter Procedures Procedure [...] documented as of this encounter Care Teams Solutions Architect Consultant Relationship Specialty Start Date End Date Caitlyn Bowie MD [facility] [address] [address] PCP - General Internal Medicine 05/06/21 documented as of this encounter
--- OUTSIDE RECORDS SUMMARY | 2024-09-11 13:12 | XMS_ITS | Encounter Summary ---
Author Organization [facility] Address [address] [place] [address] Care Team Providers Care Health Diagnostics Teacher Name Role Phone Caitlyn Bowie MD Primary Care Provider +1- [phone] Encounter Details Date Type Department Care Team (Late st Contact Info) Description 01/26/2019 Scanned Document [facility] Health Information Management [address] [place] [address] External, Provider Social History Tobacco Use Types [...] Description 09/30/2024 8:30 PM EDT Procedure visit [facility] [address] [place] [address] [address] [place] [address] 10/31/2024 1:00 PM EDT Telemedicine [facility] 240 [facility] [address] [place] [address] Ronald Mills MD 240 [facility] A1 [place] [address] documented as of this encounter Procedures Procedure [...] as of this encounter Care Teams Health Diagnostics Teacher Relationship Specialty Start Date End Date Caitlyn Bowie MD [facility]0 [facility] 1 [place] [address] PCP - General Internal Medicine 05/06/21 Henry Kelly MD Pulmonary Department 175 [facility], [address] [place] [address] Physician Pulmonary Disease 09/06/17 06/22/20 documented as of this encounter
--- OUTSIDE RECORDS SUMMARY | 2024-09-11 13:12 | XMS_ITS | Encounter Summary ---
Author Organization [facility] Address [address] [place] [address] Care Team Providers Care Silver Buffer Name Role Phone Caitlyn Bowie MD Primary Care Provider +1- [phone] Reason for Visit * Reason Comments Results Encounter Details Date Type Department Care Team (Late st Contact Info) Description 03/15/2022 Telephone [facility] at [address] [address] Ronald Mills MD [address] [place] [address] Results Social History Tobacco Use Types [...] Description 09/30/2024 8:30 PM EDT Procedure visit [facility] [address] [place] [address] [address] [place] [address] 10/31/2024 1:00 PM EDT Telemedicine [facility] 240 [facility] [address] [place], [place] [address] Ronald Mills MD 240 [facility] A1 [place] [address] documented as of this encounter Visit Diagnoses Not on filedocumented in this encounter Additional Health Concerns Infection Onset Date Last Indicated Resolved Time COVID-19 03/05/2022 03/05/2022 03/15/2022 7:18 PM EDT Assessment Noted Time PHQ-9 Depression Total Score: 2 11/07/19 19 2:06 PM EDT documented as of this encounter Care Teams Silver Buffer Relationship Specialty Start Date End Date Caitlyn Bowie MD [address] [address] PCP - General Internal Medicine 05/06/21 documented as of this encounter
--- OUTSIDE RECORDS SUMMARY | 2024-09-11 13:12 | XMS_ITS | Encounter Summary ---
Author Organization [facility] and [facility] Address [address] [place] [address] Care Team Providers Care Teleprinter Name Role Phone Caitlyn Bowie MD Primary Care Provider +1- [phone] Encounter Details Date Type Department Care Team (Late st Contact Info) Description 12/01/2015 Scanned Document [facility] Health Information Management [address] [place] [address] External, Provider Social History Tobacco Use Types [...] Description 09/30/2024 8:30 PM EDT Procedure visit [facility] [address] [place] [address] [address] [place] [address] 10/31/2024 1:00 PM EDT Telemedicine Cancer Center at [facility] 240 [facility] Building [address] [place], [place] [address] Ronald Mills MD [address] [facility] A1 [place] [address] documented as of this encounter Procedures Procedure Name Priority Date/Time Associated Diagnosis Comments CT RESULT SCAN Routine 12/01/2015 documented in this encounter Results * CT Result Scan (12/01/2015) us Provider External IMG SCAN REPORTS Edited Result - Final [facility] [place], [place], [facility] documented in this encounter Visit Diagnoses Not on filedocumented in this encounter Additional Health Concerns Infection Onset Date Last Indicated Resolved Time COVID-19 03/05/2022 03/05/2022 03/15/2022 7:18 PM EDT documented as of this encounter Care Teams Teleprinter Relationship Specialty Start Date End Date Caitlyn Bowie MD 3400 [facility] 1 [place] [address] PCP - General Internal Medicine 05/06/21 Henry Kelly MD Pulmonary Department 175 [facility], [address] [place] [address] Physician Pulmonary Disease 09/06/17 06/22/20 documented as of this encounter
--- OUTSIDE RECORDS SUMMARY | 2024-09-11 13:12 | XMS_ITS | Encounter Summary ---
Author Organization [facility] and [facility] Address [address] [place] [phone] Care Team Providers Care Book Canvasser Name Role Phone Caitlyn Bowie MD Primary Care Provider +1- [phone] Encounter Details Date Type Department Care Team (Late st Contact Info) Description 01/30/2019 Scanned Document [facility] Health Information Management [address] [place] [address] External, Provider Social History Tobacco Use Types [...] Description 09/30/2024 8:30 PM EDT Procedure visit [facility] [address] [place] [address] [address] [place] [address] 10/31/2024 1:00 PM EDT [facility] 240 [facility] [address] [place] [address] Ronald Mills MD 240 [facility] A1 [place] [address] documented as of this encounter Procedures Procedure [...] as of this encounter Care Teams Book Canvasser Relationship Specialty Start Date End Date Caitlyn Bowie MD 3400 [facility] 1 [place] [address] PCP - General Internal Medicine 05/06/21 Henry Kelly MD Pulmonary Department 175 [facility], [address] [place] [address] Physician Pulmonary Disease 09/06/17 06/22/20 documented as of this encounter
--- OUTSIDE RECORDS SUMMARY | 2024-09-11 13:12 | XMS_ITS | Encounter Summary ---
Author Organization [facility] Address [address] [place] [address] Care Team Providers Care Records Specialist Name Role Phone Caitlyn Bowie MD Primary Care Provider +1- [phone] Encounter Details Date Type Department Care Team (Late st Contact Info) Description 03/12/2019 Scanned Document [facility] Health Information Management [address] [place] [address] External, Provider Social History Tobacco Use Types [...] Description 09/30/2024 8:30 PM EDT Procedure visit [facility] [address] [place] [address] [address] [place] [address] 10/31/2024 1:00 PM EDT [facility] 240 [facility] [address] [place] [address] Ronald Mills MD [address] [facility] A1 [place] [address] documented as of this encounter Procedures Procedure [...] documented as of this encounter Care Teams Records Specialist Relationship Specialty Start Date End Date Caitlyn Bowie MD 3400 [facility] Max 1 [place] [address] PCP - General Internal Medicine 05/06/21 Henry Kelly MD Pulmonary Department 175 [facility], [address] [place] [address] Physician Pulmonary Disease 09/06/17 06/22/20 documented as of this encounter
--- OUTSIDE RECORDS SUMMARY | 2024-09-11 13:12 | XMS_ITS | Encounter Summary ---
Author Organization [facility] Address [address] [place] [address] Care Team Providers Care Destination Coordinator Name Role Phone Caitlyn Bowie MD Primary Care Provider +1- [phone] Encounter Details Date Type Department Care Team (Late st Contact Info) Description 04/16/2022 Scanned Document INTERFACE DEFAULT [address] [place] [address] System, Provider Not In Social History Tobacco [...] Description 09/30/2024 8:30 PM EDT Procedure visit [facility] [address] [place] [address] [address] [place] [address] 10/31/2024 1:00 PM EDT Telemedicine [facility] at [facility] 240 [facility] [address] [place] [address] Ronald Mills MD 240 [facility] A1 [place] [address] documented as of this encounter [...] documented as of this encounter Care Teams Destination Coordinator Relationship Specialty Start Date End Date Caitlyn Bowie MD [address] [address] PCP - General Internal Medicine 05/06/21 documented as of this encounter
--- OUTSIDE RECORDS SUMMARY | 2024-09-11 13:12 | XMS_ITS | Encounter Summary ---
Author Organization [facility] Address [address] [place] [address] Care Team Providers Care Aircraft Electrical Systems Specialist Name Role Phone Caitlyn Bowie MD Primary Care Provider +1- [phone] Encounter Details Date Type Department Care Team (Late st Contact Info) Description 08/28/2015 Scanned Document [facility] Health Information Management [address] [place] [address] External, Provider Social History Tobacco Use Types [...] 09/30/2024 8:30 PM EDT Procedure visit [facility] [address] [place] [address] [address] [place] [address] 10/31/2024 1:00 PM EDT [facility] 240 [facility] Building [address] [place], [place] [address] Ronald Mills MD 240 [facility] A1 [place] [address] documented as of this encounter Visit Diagnoses Not on filedocumented in this encounter Additional Health Concerns Infection Onset Date Last Indicated Resolved Time COVID-19 03/05/2022 03/05/2022 03/15/2022 7:18 PM EDT documented as of this encounter Care Teams Aircraft Electrical Systems Specialist Relationship Specialty Start Date End Date Caitlyn Bowie MD 3400 [facility] 1 [place] [address] PCP - General Internal Medicine 05/06/21 Henry Kelly MD Pulmonary Department 175 [facility], [address] [place] [address] Physician Pulmonary Disease 09/06/17 06/22/20 documented as of this encounter
--- OUTSIDE RECORDS SUMMARY | 2024-09-11 13:12 | XMS_ITS | Encounter Summary ---
Author Organization [facility] and [facility] Address 20 [place] [address] Care Team Providers Care Weight Yardage Checker Name Role Phone Caitlyn Bowie MD Primary Care Provider +1- [phone] Encounter Details Date Type Department Care Team (Late st Contact Info) Description 12/16/2015 Scanned Document [facility] Health Information Management [address] [place] [address] External, Provider Social History Tobacco Use Types [...] 09/30/2024 8:30 PM EDT Procedure visit [facility] [address] [place] [address] [address] [place] [address] 10/31/2024 1:00 PM EDT [facility] 240 [facility] Building [address] [place], [place] [address] Ronald Mills MD 240 [facility] A1 [place] [address] documented as of this encounter Procedures Procedure Name Priority Date/Time Associated Diagnosis Comments US RESULT SCAN Routine 12/16/2015 documented in this encounter Results * US Result Scan (12/16/2015) us Provider External IMG SCAN REPORTS Edited Result - Final [facility] documented in this encounter Visit Diagnoses Not on filedocumented in this encounter Additional Health Concerns Infection Onset Date Last Indicated Resolved Time COVID-19 03/05/2022 03/05/2022 03/15/2022 7:18 PM EDT documented as of this encounter Care Teams Weight Yardage Checker Relationship Specialty Start Date End Date Caitlyn Bowie MD 3400 [facility] 1 [place] [address] PCP - General Internal Medicine 05/06/21 Henry Kelly MD Pulmonary Department 175 [facility], [address] [place] [address] Physician Pulmonary Disease 09/06/17 06/22/20 documented as of this encounter
--- OUTSIDE RECORDS SUMMARY | 2024-09-11 13:12 | XMS_ITS | Encounter Summary ---
Author Organization [facility] Address [address] [place] [address] Care Team Providers Care Logistics Lead Name Role Phone Caitlyn Bowie MD Primary Care Provider +1- [phone] Encounter Details Date Type Department Care Team (Late st Contact Info) Description 05/02/2022 Scanned Document INTERFACE DEFAULT [address] [place] [address] System, Provider Not In Social History Tobacco [...] Description 09/30/2024 8:30 PM EDT Procedure visit [facility] [address] [place] [address] [address] [place] [address] 10/31/2024 1:00 PM EDT [facility] 240 [facility] [address] [place] [address] Ronald Mills MD 240 [facility] A1 [place] [address] documented as of this encounter [...] documented as of this encounter Care Teams Logistics Lead Relationship Specialty Start Date End Date Caitlyn Bowie MD [facility] [address] [address] PCP - General Internal Medicine 05/06/21 documented as of this encounter
--- OUTSIDE RECORDS SUMMARY | 2024-09-11 13:12 | XMS_ITS | Encounter Summary ---
Author Organization [facility] and [facility] Address [address] [place] [address] Care Team Providers Care Chocolate Finisher Name Role Phone Caitlyn Bowie MD Primary Care Provider +1- [phone] Encounter Details Date Type Department Care Team (Late st Contact Info) Description 10/23/2018 Scanned Document [facility] Health Information Management [address] [place] [address] External, Provider Social History Tobacco Use Types [...] Description 09/30/2024 8:30 PM EDT Procedure visit [facility] [address] [place] [address] [address] [place] [address] 10/31/2024 1:00 PM EDT [facility] 240 [facility] Building [address] [place], [place] [address] Ronald Mills MD 240 [facility] A1 [place] [address] documented as of this encounter Visit Diagnoses Not on filedocumented in this encounter Additional Health Concerns Infection Onset Date Last Indicated Resolved Time COVID-19 03/05/2022 03/05/2022 03/15/2022 7:18 PM EDT documented as of this encounter Care Teams Chocolate Finisher Relationship Specialty Start Date End Date Caitlyn Bowie MD 3400 [facility] 1 [place] [address] PCP - General Internal Medicine 05/06/21 Henry Kelly MD Pulmonary Department 175 [facility], [address] [place] [address] Physician Pulmonary Disease 09/06/17 06/22/20 documented as of this encounter
--- OUTSIDE RECORDS SUMMARY | 2024-09-11 13:12 | XMS_ITS | Encounter Summary ---
Author Organization [facility] Address 20 [place] [address] Care Team Providers Care Unix Engineer Name Role Phone Caitlyn Bowie MD Primary Care Provider +1- [phone] Encounter Details Date Type Department Care Team (Late st Contact Info) Description 05/10/2022 Scanned Document [facility] at [address] [address] Norma Renee MD [address] [place] [phone] Social History Tobacco Use Types Packs/Day Years [...] Description 09/30/2024 8:30 PM EDT Procedure visit [facility] [address] [place] [address] [address] [place] [address] 10/31/2024 1:00 PM EDT Telemedicine Cancer Center at [address] [place] [address] Ronald Mills MD 240 [facility] Max A1 [place] [address] documented as of this encounter Visit Diagnoses Not on filedocumented in this encounter Additional Health Concerns Assessment Noted Time PHQ-9 Depression Total Score: 2 11/07/19 19 2:06 PM EDT documented as of this encounter Care Teams Unix Engineer Relationship Specialty Start Date End Date Caitlyn Bowie MD 3400 [facility] 1 [place] [address] PCP - General Internal Medicine 05/06/21 documented as of this encounter
--- OUTSIDE RECORDS SUMMARY | 2024-09-11 13:12 | XMS_ITS | Encounter Summary ---
Author Organization [facility] Address [address] [place] [address] Care Team Providers Care Digital Project Coordinator Name Role Phone Caitlyn Bowie MD Primary Care Provider +1- [phone] Encounter Details Date Type Department Care Team (Late st Contact Info) Description 04/19/2022 Scanned Document INTERFACE DEFAULT [address] [place] [address] System, Provider Not In Social History Tobacco [...] Description 09/30/2024 8:30 PM EDT Procedure visit [facility] [address] [place] [address] [address] [place] [address] 10/31/2024 1:00 PM EDT [facility] 240 [facility] [address] [place] [address] Ronald Mills MD 240 [facility] A1 [place] [address] documented as of this encounter Procedures Procedure [...] documented as of this encounter Care Teams Digital Project Coordinator Relationship Specialty Start Date End Date Caitlyn Bowie MD [address] [address] PCP - General Internal Medicine 05/06/21 documented as of this encounter
--- OUTSIDE RECORDS SUMMARY | 2024-09-11 13:12 | XMS_ITS | Encounter Summary ---
Author Organization [facility] Address [address] [place] [address] Care Team Providers Care Hearing Stenographer Name Role Phone Caitlyn Bowie MD Primary Care Provider +1- [phone] Encounter Details Date Type Department Care Team (Late st Contact Info) Description 05/04/2022 Scanned Document INTERFACE DEFAULT [address] [place] [address] System, Provider Not In Social History Tobacco [...] Description 09/30/2024 8:30 PM EDT Procedure visit [facility] [address] [place] [address] [address] [place] [address] 10/31/2024 1:00 PM EDT [facility] 240 [facility] [address] [place] [address] Ronald Mills MD 240 [facility] A1 [place] [address] documented as of this encounter Visit Diagnoses Not on filedocumented in this encounter Additional Health Concerns Assessment Noted Time PHQ-9 Depression Total Score: 2 11/07/19 19 2:06 PM EDT documented as of this encounter Care Teams Hearing Stenographer Relationship Specialty Start Date End Date Caitlyn Bowie MD [address] [address] PCP - General Internal Medicine 05/06/21 documented as of this encounter
--- OUTSIDE RECORDS SUMMARY | 2024-09-11 13:12 | XMS_ITS | Encounter Summary ---
Author Organization [facility] and [facility] Address [address] [place] [address] Care Team Providers Care Paramedic Instructor Name Role Phone Caitlyn Bowie MD Primary Care Provider +1- [phone] Encounter Details Date Type Department Care Team (Late st Contact Info) Description 04/12/2022 Scanned Document [facility] Health Information Management [address] [place] [address] External, Provider Social History Tobacco Use Types [...] Description 09/30/2024 8:30 PM EDT Procedure visit [facility] [address] [place] [address] [address] [place] [address] 10/31/2024 1:00 PM EDT Telemedicine [facility] 240 [facility] [address] [place] [address] Ronald Mills MD 240 [facility] A1 [place] [address] documented as of this encounter [...] documented as of this encounter Care Teams Paramedic Instructor Relationship Specialty Start Date End Date Caitlyn Bowie MD [address] [place] [phone] PCP - General Internal Medicine 05/06/21 documented as of this encounter
--- OUTSIDE RECORDS SUMMARY | 2024-09-11 13:12 | XMS_ITS | Encounter Summary ---
Author Organization [facility] Address 20 [place] [address] Care Team Providers Care Bleach Maker Name Role Phone Caitlyn Bowie MD Primary Care Provider +1- [phone] Encounter Details Date Type Department Care Team (Late st Contact Info) Description 11/03/2015 Scanned Document [facility] Health Information Management [address] [place] [address] External, Provider Social History Tobacco Use Types [...] EDT Procedure visit [facility] [address] [place] [address] [address] [place] [address] 10/31/2024 1:00 PM EDT Telemedicine [facility] at [facility] 240 [facility] Building [address] [place], [place] [address] Ronald Mills MD 240 [facility] A1 [place] [address] documented as of this encounter Procedures Procedure Name Priority Date/Time Associated Diagnosis Comments US RESULT SCAN Routine 11/03/2015 documented in this encounter Results * US Result Scan (11/03/2015) us Provider External IMG SCAN REPORTS Edited Result - Final [facility] documented in this encounter Visit Diagnoses Not on filedocumented in this encounter Additional Health Concerns Infection Onset Date Last Indicated Resolved Time COVID-19 03/05/2022 03/05/2022 03/15/2022 7:18 PM EDT documented as of this encounter Care Teams Bleach Maker Relationship Specialty Start Date End Date Caitlyn Bowie MD 3400 [facility] 1 [place] [address] PCP - General Internal Medicine 05/06/21 Henry Kelly MD Pulmonary Department 175 [facility], [address] [place] [address] Physician Pulmonary Disease 09/06/17 06/22/20 documented as of this encounter
--- OUTSIDE RECORDS SUMMARY | 2024-09-11 13:12 | XMS_ITS | Encounter Summary ---
Author Organization [facility] Address [address] [place] [address] Care Team Providers Care Portable Router Operator Name Role Phone Caitlyn Bowie MD Primary Care Provider +1- [phone] Encounter Details Date Type Department Care Team (Late st Contact Info) Description 12/29/2021 Telephone [facility] at [address] [address] Ronald Mills MD [address] [place] [address] Social History Tobacco Use Types Packs/Day [...] not sure where the blood's coming from. [phone] documented in this encounter Plan of Treatment Upcoming Encounters Date Type Department Care Team (Late st Contact Info) Description 09/30/2024 8:30 PM EDT Procedure visit [facility] [address] [place] [address] [address] [place] [address] 10/31/2024 1:00 PM EDT [facility] 240 [facility] [address] [place], [place] [address] Ronald Mills MD 240 [facility] A1 [place] [address] documented as of this encounter Visit Diagnoses Not on filedocumented in this encounter Additional Health Concerns Infection Onset Date Last Indicated Resolved Time COVID-19 03/05/2022 03/05/2022 03/15/2022 7:18 PM EDT Assessment Noted Time PHQ-9 Depression Total Score: 2 11/07/19 19 2:06 PM EDT documented as of this encounter Care Teams Portable Router Operator Relationship Specialty Start Date End Date Caitlyn Bowie MD [address] [address] PCP - General Internal Medicine 05/06/21 documented as of this encounter
--- OUTSIDE RECORDS SUMMARY | 2024-09-11 13:12 | XMS_ITS | Encounter Summary ---
Author Organization [facility] Address [address] [place] [address] Care Team Providers Care Inseam Trimmer Name Role Phone Caitlyn Bowie MD Primary Care Provider +1- [phone] Encounter Details Date Type Department Care Team (Late st Contact Info) Description 04/25/2022 Scanned Document INTERFACE DEFAULT [address] [place] [address] System, Provider Not In Social History Tobacco [...] Description 09/30/2024 8:30 PM EDT Procedure visit [facility] [address] [place] [address] [address] [place] [address] 10/31/2024 1:00 PM EDT Telemedicine [facility] at [facility] 240 [facility] [address] [place] [address] Ronald Mills MD 240 [facility] A1 [place] [address] documented as of this encounter Visit Diagnoses Not on filedocumented in this encounter Additional Health Concerns Assessment Noted Time PHQ-9 Depression Total Score: 2 11/07/19 19 2:06 PM EDT documented as of this encounter Care Teams Inseam Trimmer Relationship Specialty Start Date End Date Caitlyn Bowie MD [address] [address] PCP - General Internal Medicine 05/06/21 documented as of this encounter
--- OUTSIDE RECORDS SUMMARY | 2024-09-11 13:12 | XMS_ITS | Encounter Summary ---
Author Organization [facility] and [facility] Address [address] [place] [phone] Care Team Providers Care Parts Advisor Name Role Phone Caitlyn Bowie MD Primary Care Provider +1- [phone] Encounter Details Date Type Department Care Team (Late st Contact Info) Description 04/18/2022 Scanned Document INTERFACE DEFAULT [address] [place] [address] System, Provider Not In Social History Tobacco [...] Description 09/30/2024 8:30 PM EDT Procedure visit [facility] [address] [place] [address] [address] [place] [address] 10/31/2024 1:00 PM EDT [facility] 240 [facility] Building [address] [place] [address] Ronald Mills MD 240 [facility] A1 [place] [address] documented as of this encounter Visit Diagnoses Not on filedocumented in this encounter Additional Health Concerns Assessment Noted Time PHQ-9 Depression Total Score: 2 11/07/19 19 2:06 PM EDT documented as of this encounter Care Teams Parts Advisor Relationship Specialty Start Date End Date Caitlyn Bowie MD [address] [address] PCP - General Internal Medicine 05/06/21 documented as of this encounter
--- OUTSIDE RECORDS SUMMARY | 2024-09-11 13:12 | XMS_ITS | Encounter Summary ---
Author Organization [facility] Address [address] [place] [address] Care Team Providers Care Stem Threshing Machine Operator Name Role Phone Caitlyn Bowie MD Primary Care Provider +1- [phone] Encounter Details Date Type Department Care Team (Late st Contact Info) Description 04/14/2022 Scanned Document INTERFACE DEFAULT [address] [place] [address] System, Provider Not In Social History Tobacco [...] Description 09/30/2024 8:30 PM EDT Procedure visit [facility] [address] [place] [address] [address] [place] [address] 10/31/2024 1:00 PM EDT Telemedicine [facility] at [facility] 240 [facility] [address] [place] [address] Ronadl Mills MD 240 [facility] [address]1 [place] [address] documented as of this encounter Visit Diagnoses Not on filedocumented in this encounter Additional Health Concerns Assessment Noted Time PHQ-9 Depression Total Score: 2 11/07/19 19 2:06 PM EDT documented as of this encounter Care Teams Stem Threshing Machine Operator Relationship Specialty Start Date End Date Caitlyn Bowie MD [address] [address] PCP - General Internal Medicine 05/06/21 documented as of this encounter
--- OUTSIDE RECORDS SUMMARY | 2024-09-11 13:12 | XMS_ITS | Encounter Summary ---
Author Organization [facility] Address [address] [place] [address] Care Team Providers Care Medical Writer Name Role Phone Caitlyn Bowie MD Primary Care Provider +1- [phone] Encounter Details Date Type Department Care Team (Late st Contact Info) Description 02/06/2019 Scanned Document [facility] Health Information Management [address] [place] [address] External, Provider Social History Tobacco Use Types [...] Description 09/30/2024 8:30 PM EDT Procedure visit [facility] [address] [place] [address] [address] [place] [address] 10/31/2024 1:00 PM EDT Telemedicine [facility] at [facility] 240 [facility] [address] [place] [address] Ronald Mills MD 240 [facility] [address]1 [place] [address] documented as of this encounter Procedures Procedure [...] as of this encounter Care Teams Medical Writer Relationship Specialty Start Date End Date Caitlyn Bowie MD 3400 [facility] [address] 1 [place] [address] PCP - General Internal Medicine 05/06/21 Henry Kelly MD Pulmonary Department 175 [facility], [address] [place] [address] Physician Pulmonary Disease 09/06/17 06/22/20 documented as of this encounter
--- OUTSIDE RECORDS SUMMARY | 2024-09-11 13:12 | XMS_ITS | Encounter Summary ---
Author Organization [facility] and [facility] Address [address] [place] [address] Care Team Providers Care B Operator Name Role Phone Caitlyn Bowie MD Primary Care Provider +1- [phone] Encounter Details Date Type Department Care Team (Late st Contact Info) Description 03/02/2022 Scanned Document [facility] Health Information Management [address] [place] [address] External, Provider Social History Tobacco Use Types [...] Description 09/30/2024 8:30 PM EDT Procedure visit [facility] [address] [place] [address] [address] [place] [address] 10/31/2024 1:00 PM EDT Telemedicine [facility] 240 [facility] [address] [place] [address] Ronald Mills MD 240 [facility] [address]1 [place] [address] documented as of this encounter Visit Diagnoses Not on filedocumented in this encounter Additional Health Concerns Infection Onset Date Last Indicated Resolved Time COVID-19 03/05/2022 03/05/2022 03/15/2022 7:18 PM EDT Assessment Noted Time PHQ-9 Depression Total Score: 2 11/07/19 19 2:06 PM EDT documented as of this encounter Care Teams B Operator Relationship Specialty Start Date End Date Caitlyn Bowie MD [address] [address] PCP - General Internal Medicine 05/06/21 documented as of this encounter
--- OUTSIDE RECORDS SUMMARY | 2024-09-11 13:12 | XMS_ITS | Encounter Summary ---
Author Organization [facility] and [facility] Address [address] [place] [address] Care Team Providers Care Mechanical Intern Name Role Phone Caitlyn Bowie MD Primary Care Provider +1- [phone] Encounter Details Date Type Department Care Team (Late st Contact Info) Description 09/09/2015 Scanned Document [facility] Health Information Management [address] [place] [address] External, Provider Social History Tobacco Use Types [...] Description 09/30/2024 8:30 PM EDT Procedure visit [facility] [address] [place] [address] [address] [place] [address] 10/31/2024 1:00 PM EDT Telemedicine Cancer Center at [facility] 240 [facility] Building [address] [place], [place] [address] Ronald Mills MD 240 [facility] [address]1 [place] [address] documented as of this encounter Procedures Procedure Name Priority Date/Time Associated Diagnosis Comments LAB SCAN Routine 09/09/2015 documented in this encounter Results * Lab Scan (09/09/2015) Blood specimen (specimen) us Provider External LAB BLOOD ORDERABLES Final Res ult Performing Organization Address City/State/[facility] Co de Phone Number [facility] documented in this encounter Visit Diagnoses Not on filedocumented in this encounter Additional Health Concerns Infection Onset Date Last Indicated Resolved Time COVID-19 03/05/2022 03/05/2022 03/15/2022 7:18 PM EDT documented as of this encounter Care Teams Mechanical Intern Relationship Specialty Start Date End Date Caitlyn Bowie MD 3400 [facility] 1 [place] [address] PCP - General Internal Medicine 05/06/21 Henry Kelly MD Pulmonary Department 175 [facility], [address] [place] [address] Physician Pulmonary Disease 09/06/17 06/22/20 documented as of this encounter
--- OUTSIDE RECORDS SUMMARY | 2024-09-11 13:12 | XMS_ITS | Encounter Summary ---
Author Organization [facility] Address [address] [place] [address] Care Team Providers Care K [employer] Principal Name Role Phone Caitlyn Bowie MD Primary Care Provider +1- [phone] Encounter Details Date Type Department Care Team (Late st Contact Info) Description 03/20/2023 Scanned Document [facility]iology [address] [place] [address] Caitlyn Bowie MD [address] [place] [address] Social History Tobacco Use Types Packs/Day Years [...] on filedocumented in this encounter Care Teams K [employer] School Principal Relationship Specialty Start Date End Date Caitlyn Bowie MD [address] [place] [address] PCP - General Internal Medicine 03/20/23 documented as of this encounter
--- OUTSIDE RECORDS SUMMARY | 2024-09-11 13:13 | XMS_ITS | Encounter Summary ---
Author Organization [facility] Address [address] [place] [address] Care Team Providers Care Waiter/Waitress Tavern Name Role Phone Caitlyn Bowie MD Primary Care Provider +1- [phone] Encounter Details Date Type Department Care Team (Late st Contact Info) Description 06/17/2016 Scanned Document [facility] Health Information Management [address] [place] [address] External, Provider Social History Tobacco Use Types [...] Description 09/30/2024 8:30 PM EDT Procedure visit [facility] [address] [place] [address] [address] [place] [address] 10/31/2024 1:00 PM EDT Telemedicine [facility] at [facility] 240 [facility] Building [address] [place], [place] [address] Ronald Mills MD 240 [facility] A1 [place] [address] documented as of this encounter Procedures Procedure Name Priority Date/Time Associated Diagnosis Comments XRAY RESULT SCAN Routine 06/17/2016 documented in this encounter Results * Xray Result Scan (06/17/2016) us Provider External IMG SCAN REPORTS Final Result Performing Organization Address City/State/[facility] Co de Phone Number [facility] [place], [place], [facility] documented in this encounter Visit Diagnoses Not on filedocumented in this encounter Additional Health Concerns Infection Onset Date Last Indicated Resolved Time COVID-19 03/05/2022 03/05/2022 03/15/2022 7:18 PM EDT documented as of this encounter Care Teams Waiter/Waitress Tavern Relationship Specialty Start Date End Date Caitlyn Bowie MD 3400 [facility] 1 [place] [address] PCP - General Internal Medicine 05/06/21 Henry Kelly MD Pulmonary Department 175 [facility], [address] [place] [address] Physician Pulmonary Disease 09/06/17 06/22/20 documented as of this encounter
--- OUTSIDE RECORDS SUMMARY | 2024-09-11 13:13 | XMS_ITS | Encounter Summary ---
Author Organization [facility] and [facility] Address [address] [place] [address] Care Team Providers Care Pharmacy Operations Manager Name Role Phone Caitlyn Bowie MD Primary Care Provider +1- [phone] Encounter Details Date Type Department Care Team (Late st Contact Info) Description 07/27/2016 Scanned Document Thoracic Oncology Program at [address] [address] Suzy Kong MD [address] [place] [address] Social History Tobacco Use Types Packs/Day [...] Description 09/30/2024 8:30 PM EDT Procedure visit [facility] [address] [place] [address] [address] [place] [address] 10/31/2024 1:00 PM EDT Telemedicine Cancer Center at [address] [place] [address] Ronald Mills MD [address] [place] [address], [place] [address] documented as of this encounter Visit Diagnoses Not on filedocumented in this encounter Additional Health Concerns Infection Onset Date Last Indicated Resolved Time COVID-19 03/05/2022 03/05/2022 03/15/2022 7:18 PM EDT documented as of this encounter Care Teams Pharmacy Operations Manager Relationship Specialty Start Date End Date Caitlyn Bowie MD 3400 [facility] 1 [place] [address] PCP - General Internal Medicine 05/06/21 Henry Kelly MD Pulmonary Department [address] [place] [address], [address] [place] [address] Physician Pulmonary Disease 09/06/17 06/22/20 documented as of this encounter
--- OUTSIDE RECORDS SUMMARY | 2024-09-11 13:13 | XMS_ITS | Encounter Summary ---
Author Organization [facility] Address [address] [place] [address] Care Team Providers Care Microbiology Professor Name Role Phone Cristofer [place] MD Primary Care Provider Victorino Read MD Primary Care Provider UnavailSharon Kimbrough Primary Care Provider Unava ilBrennan Newman MD Primary Care Provider Unavailab Hayden Montes MD Unavailable [phone] Pallavi Flood NP Unavailable +1- [phone] Caitlyn Bowie MD Primary Care Provider Unaailyn shaver Encounter Details Date Type Department Care Team Description 05/18/2017 Release of Information Medical Records [address] [place] [address] Abstract, Provider Social History Tobacco Use Types [...] on filedocumented in this encounter Care Teams Microbiology Professor Relationship Specialty Start Date End Date Cristofer Hope MD PCP - General Internal Medicine 05/16/17 12/20/17 Victorino Martin MD PCP - General Internal Medicine 12/21/17 08/01/18 Sharon Vides PCP - General Internal Medicine 08/02/18 05/26/20 Brennan Burnett MD PCP - General Internal Medicine 05/27/20 12/07/21 Caitlyn Bowie MD [address] [place] [address] PCP - General Internal Medicine 12/08/21 Hayden Shah MD [address] [place] [address] Specialist Cardiovascular Disease 09/01/20 Pallavi lFood NP [address] [place] [address] Cardiology 09/01/20 documented as of this encounter
--- OUTSIDE RECORDS SUMMARY | 2024-09-11 13:13 | XMS_ITS | Encounter Summary ---
Author Organization [facility] and [facility] Address [address] [place] [address] Care Team Providers Care Manager Harbor Name Role Phone Caitlyn Bowie MD Primary Care Provider +1- [phone] Encounter Details Date Type Department Care Team (Late st Contact Info) Description 12/28/2018 Scanned Document [facility] Health Information Management [address] [place] [address] External, Provider Social History Tobacco Use Types [...] Description 09/30/2024 8:30 PM EDT Procedure visit [facility] [address] [place] [address] [address] [place] [address] 10/31/2024 1:00 PM EDT Telemedicine Cancer Center at [facility] 240 [facility] [address] [place] [address] Ronald Mills MD 240 [facility] A1 [place] [address] documented as of this encounter Procedures Procedure [...] as of this encounter Care Teams Manager Harbor Relationship Specialty Start Date End Date Caitlyn Bowie MD [facility] 1 [place] [address] PCP - General Internal Medicine 05/06/21 Henry Kelly MD Pulmonary Department [address] [place] [address], [address] [place] [address] Physician Pulmonary Disease 09/06/17 06/22/20 documented as of this encounter
--- OUTSIDE RECORDS SUMMARY | 2024-09-11 13:13 | XMS_ITS | Encounter Summary ---
Author Organization [facility] and [facility] Address [address] [place] [address] Care Team Providers Care Leasing Consultant Name Role Phone Caitlyn Bowie MD Primary Care Provider +1- [phone] Encounter Details Date Type Department Care Team (Late st Contact Info) Description 12/14/2016 Scanned Document [facility] Health Information Management [address] [place] [address] External, Provider Social History Tobacco Use Types [...] Description 09/30/2024 8:30 PM EDT Procedure visit [facility] [address] [place] [address] [address] [place] [address] 10/31/2024 1:00 PM EDT Telemedicine [facility] at [facility] 240 [facility] [address] [place], [place] [address] Ronald Mills MD 240 [facility] A1 [place] [address] documented as of this encounter Procedures Procedure [...] documented as of this encounter Care Teams Leasing Consultant Relationship Specialty Start Date End Date Caitlyn Bowie MD 3400 [facility] 1 [place] [address] PCP - General Internal Medicine 05/06/21 Henry Kelly MD Pulmonary Department [address] [facility], [address] [place] [address] Physician Pulmonary Disease 09/06/17 06/22/20 documented as of this encounter
--- OUTSIDE RECORDS SUMMARY | 2024-09-11 13:13 | XMS_ITS | Encounter Summary ---
Author Organization [facility] and [facility] Address [address] [place] [address] Care Team Providers Care Sampling Theory Teacher Name Role Phone Caitlyn Bowie MD Primary Care Provider +1- [phone] Encounter Details Date Type Department Care Team (Late st Contact Info) Description 01/13/2019 Scanned Document [facility] Health Information Management [address] [place] [address] External, Provider Social History Tobacco Use Types [...] Description 09/30/2024 8:30 PM EDT Procedure visit [facility] [address] [place] [address] [address] [place] [address] 10/31/2024 1:00 PM EDT Telemedicine [facility] 240 [facility] [place] [facility] [address] [place] [address] Ronald Mills MD 240 [facility] A1 [place] [address] documented as of this encounter Procedures Procedure [...] documented as of this encounter Care Teams Sampling Theory Teacher Relationship Specialty Start Date End Date Caitlyn Bowie MD 3400 [facility] 1 [place] [address] PCP - General Internal Medicine 05/06/21 Henry Kelly MD Pulmonary Department 175 [facility], [address] [place] [address] Physician Pulmonary Disease 09/06/17 06/22/20 documented as of this encounter
--- OUTSIDE RECORDS SUMMARY | 2024-09-11 13:13 | XMS_ITS | Encounter Summary ---
Author Organization [facility] Address [address] [place] [address] Care Team Providers Care Family Law Specialist Name Role Phone Caitlyn Bowie MD Primary Care Provider +1- [phone] Encounter Details Date Type Department Care Team (Late st Contact Info) Description 12/14/2016 Scanned Document [facility] Health Information Management [address] [place] [address] External, Provider Social History Tobacco Use Types [...] Description 09/30/2024 8:30 PM EDT Procedure visit [facility] [address] [place] [address] [address] [place] [address] 10/31/2024 1:00 PM EDT Telemedicine Cancer [facility] at [facility] 240 [facility] Building [address] [place], [place] [address] Ronald Mills MD 240 [facility] A1 [place] [address] documented as of this encounter Visit Diagnoses Not on filedocumented in this encounter Additional Health Concerns Infection Onset Date Last Indicated Resolved Time COVID-19 03/05/2022 03/05/2022 03/15/2022 7:18 PM EDT documented as of this encounter Care Teams Family Law Specialist Relationship Specialty Start Date End Date Caitlyn Bowie MD 3400 [facility] [address] 1 [place] [address] PCP - General Internal Medicine 05/06/21 Henry Kelly MD Pulmonary Department 175 [facility], [address] [place] [address] Physician Pulmonary Disease 09/06/17 06/22/20 documented as of this encounter
--- OUTSIDE RECORDS SUMMARY | 2024-09-11 13:13 | XMS_ITS | Encounter Summary ---
Author Organization [facility] Address [address] [place] [address] Care Team Providers Care Gardener Name Role Phone Caitlyn Bowie MD Primary Care Provider +1- [phone] Encounter Details Date Type Department Care Team (Late st Contact Info) Description 02/08/2016 Scanned Document [facility] Health Information Management [address] [place] [phone] External, Provider Social History Tobacco Use Types [...] Description 09/30/2024 8:30 PM EDT Procedure visit [facility] [address] [place] [address] [address] [place] [address] 10/31/2024 1:00 PM EDT Telemedicine [facility] at [facility] 240 [facility] [address] [place], [place] [address] Ronald Mills MD 240 [facility] A1 [place] [address] documented as of this encounter Visit Diagnoses Not on filedocumented in this encounter Additional Health Concerns Infection Onset Date Last Indicated Resolved Time COVID-19 03/05/2022 03/05/2022 03/15/2022 7:18 PM EDT documented as of this encounter Care Teams Gardener Relationship Specialty Start Date End Date Caitlyn Bowie MD 3400 [facility] [address] 1 [place] [address] PCP - General Internal Medicine 05/06/21 Henry Kelly MD Pulmonary Department 175 [facility], [address] [place] [address] Physician Pulmonary Disease 09/06/17 06/22/20 documented as of this encounter
--- OUTSIDE RECORDS SUMMARY | 2024-09-11 13:13 | XMS_ITS | Encounter Summary ---
Author Organization [facility] Address [address] [place] [address] Care Team Providers Care Area Mechanic Name Role Phone Caitlyn Bowie MD Primary Care Provider +1- [phone] Encounter Details Date Type Department Care Team (Late st Contact Info) Description 12/16/2016 Scanned Document [facility] Health Information Management [address] [place] [phone] External, Provider Social History Tobacco Use Types [...] Description 09/30/2024 8:30 PM EDT Procedure visit [facility] [address] [place] [address] [address] [place] [address] 10/31/2024 1:00 PM EDT Telemedicine [facility] 240 [facility] Building [address] [place], [place] [address] Ronald Mills MD 240 [facility] A1 [place] [address] documented as of this encounter Procedures Procedure [...] as of this encounter Care Teams Area Mechanic Relationship Specialty Start Date End Date Caitlyn Bowie MD 3400 [facility] 1 [place] [address] PCP - General Internal Medicine 05/06/21 Henry Kelly MD Pulmonary Department 175 [facility], [address] [place] [address] Physician Pulmonary Disease 09/06/17 06/22/20 documented as of this encounter
--- OUTSIDE RECORDS SUMMARY | 2024-09-11 13:13 | XMS_ITS | Encounter Summary ---
Author Organization [facility] and [facility] Address [address] [place] [address] Care Team Providers Care Animal Husbandry Professor Name Role Phone Caitlyn Bowie MD Primary Care Provider +1- [phone] Encounter Details Date Type Department Care Team (Late st Contact Info) Description 07/27/2016 Scanned Document Thoracic Oncology Program at [address] [address] Suzy Kong MD [address] [place] [phone] Social History Tobacco Use Types Packs/Day [...] Description 09/30/2024 8:30 PM EDT Procedure visit [facility] [address] [place] [address] [address] [place] [address] 10/31/2024 1:00 PM EDT Telemedicine Cancer Center at [address] [place] [address] Ronald Mills MD [address] [place] [address], [place] [address] documented as of this encounter Visit Diagnoses Not on filedocumented in this encounter Additional Health Concerns Infection Onset Date Last Indicated Resolved Time COVID-19 03/05/2022 03/05/2022 03/15/2022 7:18 PM EDT documented as of this encounter Care Teams Animal Husbandry Professor Relationship Specialty Start Date End Date Caitlyn Bowie MD 3400 [facility] 1 [place] [address] PCP - General Internal Medicine 05/06/21 Henry Kelly MD Pulmonary Department [address] [place] [address], [address] [place] [address] Physician Pulmonary Disease 09/06/17 06/22/20 documented as of this encounter
--- OUTSIDE RECORDS SUMMARY | 2024-09-11 13:13 | XMS_ITS | Encounter Summary ---
Author Organization [facility] and [facility] Address [address] [place] [address] Care Team Providers Care Dental Officer Name Role Phone Caitlyn Bowie MD Primary Care Provider +1- [phone] Encounter Details Date Type Department Care Team (Late st Contact Info) Description 04/04/2016 Scanned Document [facility] Health Information Management [address] [place] [phone] External, Provider Social History Tobacco Use Types [...] 09/30/2024 8:30 PM EDT Procedure visit [facility] [address] [place] [address] [address] [place] [address] 10/31/2024 1:00 PM EDT Telemedicine [facility] 240 [facility] Building [address] [place], [place] [address] Ronald Mills MD 240 [facility] A1 [place] [address] documented as of this encounter Procedures Procedure Name Priority Date/Time Associated Diagnosis Comments LAB SCAN Routine 04/04/2016 documented in this encounter Results * Lab Scan (04/04/2016) Blood specimen (specimen) us Provider External LAB BLOOD ORDERABLES Final Res ult Performing Organization Address City/State/[facility] Co de Phone Number [facility] documented in this encounter Visit Diagnoses Not on filedocumented in this encounter Additional Health Concerns Infection Onset Date Last Indicated Resolved Time COVID-19 03/05/2022 03/05/2022 03/15/2022 7:18 PM EDT documented as of this encounter Care Teams Dental Officer Relationship Specialty Start Date End Date Caitlyn Bowie MD 3400 [facility] [address] 1 [place] [address] PCP - General Internal Medicine 05/06/21 Henry Kelly MD Pulmonary Department 175 [facility], [address] [place] [address] Physician Pulmonary Disease 09/06/17 06/22/20 documented as of this encounter
--- OUTSIDE RECORDS SUMMARY | 2024-09-11 13:13 | XMS_ITS | Encounter Summary ---
Author Organization [facility] and [facility] Address [address] [place] [address] Care Team Providers Care Instructor Nurse Name Role Phone Caitlyn Bowie MD Primary Care Provider +1- [phone] Encounter Details Date Type Department Care Team (Late st Contact Info) Description 04/19/2024 Scanned Document INTERFACE DEFAULT [address] [place] [address] System, Provider Not In Social History Tobacco [...] Description 09/30/2024 8:30 PM EDT Procedure visit [facility] [address] [place] [address] [address] [place] [phone] 10/31/2024 1:00 PM EDT [facility] [address] [facility] [address] [place] [address] Ronald Mills MD 240 [facility] A1 [place] [address] documented as of this encounter Procedures Procedure [...] as of this encounter Care Teams Instructor Nurse Relationship Specialty Start Date End Date Caitlyn Bowie MD [facility] [address] [address] PCP - General Internal Medicine 05/06/21 documented as of this encounter
--- OUTSIDE RECORDS SUMMARY | 2024-09-11 13:13 | XMS_ITS | Encounter Summary ---
Author Organization [facility] Address [address] [place] [address] Care Team Providers Care Egg Smeller Name Role Phone Caitlyn Bowie MD Primary Care Provider +1- [phone] Reason for Referral * Imaging (Routine) - Closed Specialty Diagnoses / Procedures Referred By Contac t Referred To Contact Procedures NM Lung Ventilation Perfusion ([facility]) External, Provider Referral ID Status Reason Start Date Expiration Date Visits Re quested Visits Authorized [id number] Closed 08/22/2016 08/22/2017 4 4 Encounter Details Date Type Department Care Team (Late st Contact Info) Description 08/22/2016 Scanned Document Thoracic Oncology Program at [address] [address] External, Provider Social History Tobacco Use Types [...] Description 09/30/2024 8:30 PM EDT Procedure visit [facility] [address] [place] [phone] 10/31/2024 1:00 PM EDT Tele[facility]icine [facility] [place] [address] [place], [place] [address] Ronald Mills MD [address] [place] [address] documented as of this encounter Procedures Procedure Name Priority Date/Time Associated Diagnosis Comments XRAY RESULT SCAN Routine 07/27/2016 CT RESULT SCAN Routine 07/27/2016 CT RESULT SCAN Routine 07/27/2016 CARDIAC EKG RESULT SCAN Routine 07/27/2016 LAB SCAN Routine 07/27/2016 NM LUNG VENTILATION PERFUSIO N ([facility]) Routine 07/27/2016 documented in this encounter Results * Xray Result Scan (07/27/2016) us Provider External IMG SCAN REPORTS Final Result Performing Organization Address [facility]/ZIP Co de Phone Number [facility] * CT Result Scan (07/27/2016) us Provider External IMG SCAN REPORTS Final Result Performing Organization Address [facility]/ZIP Co de Phone Number [facility] * Cardiac EKG Result Scan (07/27/2016) us Provider External CV CARDIAC REPORT (CVR) Final Result Performing Organization Address [facility]/ZIP Co de Phone Number [facility] [place], [place], [facility] * CT Result Scan (07/27/2016) us Provider External IMG SCAN REPORTS Final Result Performing Organization Address [facility]/ZIP Co de Phone Number [facility] * Lab Scan (07/27/2016) Blood specimen (specimen) us Provider External LAB BLOOD ORDERABLES Final Res ult [facility] [place], [place], [place] * NM Lung Ventilation Perfusion ([facility]) (07/27/2016) Anatomical Region Laterality Modality Chest, Lung Nuclear Medicine us Provider External IMG NM ORDERABLES Final Result documented in this encounter Visit Diagnoses Not on filedocumented in this encounter Additional Health Concerns Infection Onset Date Last Indicated Resolved Time COVID-19 03/05/2022 03/05/2022 03/15/2022 7:18 PM EDT documented as of this encounter Care Teams Egg Smeller Relationship Specialty Start Date End Date Caitlyn Bowie MD 3400 [facility] 1 [place] [address] PCP - General Internal Medicine 05/06/21 Henry Kelly MD Pulmonary Department 175 [facility], [address] [place] [address] Physician Pulmonary Disease 09/06/17 06/22/20 documented as of this encounter
--- OUTSIDE RECORDS SUMMARY | 2024-09-11 13:13 | XMS_ITS | Encounter Summary ---
Author Organization [facility] and [facility] Address [address] [place] [address] Care Team Providers Care Shoulder Pad Molder Name Role Phone Caitlyn Bowie MD Primary Care Provider +1- [phone] Encounter Details Date Type Department Care Team (Late st Contact Info) Description 04/23/2024 Scanned Document INTERFACE DEFAULT [address] [place] [address] System, Provider Not In Social History Tobacco [...] Description 09/30/2024 8:30 PM EDT Procedure visit [facility] [address] [place] [address] [address] [place] [phone] 10/31/2024 1:00 PM EDT Telemedicine [facility] at [facility] [address] [facility] [address] [place] [address] Ronald Mills MD 240 [facility] A1 [place] [address] documented as of this encounter Procedures Procedure [...] as of this encounter Care Teams Shoulder Pad Molder Relationship Specialty Start Date End Date Caitlyn Bowie MD [address] [address] PCP - General Internal Medicine 05/06/21 documented as of this encounter
--- OUTSIDE RECORDS SUMMARY | 2024-09-11 13:13 | XMS_ITS | Encounter Summary ---
Author Organization [facility] Address [address] [place] [address] Care Team Providers Care Bargain Table Clerk Name Role Phone Caitlyn Bowie MD Primary Care Provider +1- [phone] Encounter Details Date Type Department Care Team (Late st Contact Info) Description 04/08/2024 Scanned Document INTERFACE DEFAULT [address] [place] [address] System, Provider Not In Social History Tobacco [...] Description 09/30/2024 8:30 PM EDT Procedure visit [facility] [address] [place] [address] [address] [place] [phone] 10/31/2024 1:00 PM EDT Telemedicine [facility] [address] [facility] [address] [place] [address] Ronald Mills MD 240 [facility] A1 [place] [address] documented as of this encounter Procedures Procedure [...] documented as of this encounter Care Teams Bargain Table Clerk Relationship Specialty Start Date End Date Caitlyn Bowie MD [address] [address] PCP - General Internal Medicine 05/06/21 documented as of this encounter
--- OUTSIDE RECORDS SUMMARY | 2024-09-11 13:13 | XMS_ITS | Encounter Summary ---
Author Organization [facility] Address [address] [place] [address] Care Team Providers Care Clinical Biochemical Geneticist Name Role Phone Caitlyn Bowie MD Primary Care Provider +1- [phone] Encounter Details Date Type Department Care Team (Late st Contact Info) Description 10/10/2016 Scanned Document [facility] Health Information Management [address] [place] [address] External, Provider Social History Tobacco Use Types [...] EDT Procedure visit [facility] [address] [place] [address] [address] [place] [address] 10/31/2024 1:00 PM EDT Telemedicine [facility] at [facility] [address] [facility] [address] [place], [place] [address] Ronald Mills MD 240 [facility] A1 [place] [address] documented as of this encounter Visit Diagnoses Not on filedocumented in this encounter Additional Health Concerns Infection Onset Date Last Indicated Resolved Time COVID-19 03/05/2022 03/05/2022 03/15/2022 7:18 PM EDT documented as of this encounter Care Teams Clinical Biochemical Geneticist Relationship Specialty Start Date End Date Caitlyn Bowie MD 3400 [facility] [address] 1 [place] [address] PCP - General Internal Medicine 05/06/21 Henry Kelly MD Pulmonary Department 175 [facility], [address] [place] [address] Physician Pulmonary Disease 09/06/17 06/22/20 documented as of this encounter
--- OUTSIDE RECORDS SUMMARY | 2024-09-11 13:13 | XMS_ITS | Encounter Summary ---
Author Organization [facility] Address [address] [place] [address] Care Team Providers Care Cut Off Saw Grader Name Role Phone Caitlyn Bowie MD Primary Care Provider +1- [phone] Encounter Details Date Type Department Care Team (Late st Contact Info) Description 01/08/2019 Scanned Document [facility] Health Information Management [address] [place] [address] External, Provider Social History Tobacco Use Types [...] Description 09/30/2024 8:30 PM EDT Procedure visit [facility] [address] [place] [address] [address] [place] [address] 10/31/2024 1:00 PM EDT [facility] 240 [facility] [address] [place] [address] Ronald Mills MD 240 [facility] [address]1 [place] [address] documented as of this encounter Procedures Procedure [...] documented as of this encounter Care Teams Cut Off Saw Grader Relationship Specialty Start Date End Date Caitlyn Bowie MD [address] [facility] Max 1 [place] [address] PCP - General Internal Medicine 05/06/21 Henry Kelly MD Pulmonary Department 175 [facility], [address] [place] [address] Physician Pulmonary Disease 09/06/17 06/22/20 documented as of this encounter
--- OUTSIDE RECORDS SUMMARY | 2024-09-11 13:13 | XMS_ITS | Encounter Summary ---
Author Organization [facility] Address [address] [place] [address] Care Team Providers Care Sr Solutions Consultant Name Role Phone Caitlyn Bowie MD Primary Care Provider +1- [phone] Encounter Details Date Type Department Care Team (Late st Contact Info) Description 12/16/2016 Scanned Document [facility] Health Information Management [address] [place] [address] External, Provider Social History Tobacco Use Types [...] Description 09/30/2024 8:30 PM EDT Procedure visit [facility] [address] [place] [address] [address] [place] [address] 10/31/2024 1:00 PM EDT Telemedicine [facility] at [facility] [address] [facility] [address] [place], [place] [address] Ronald Mills MD 240 [facility] A1 [place] [address] documented as of this encounter Procedures Procedure [...] documented as of this encounter Care Teams Sr Solutions Consultant Relationship Specialty Start Date End Date Caitlyn Bowie MD 3400 [facility] 1 [place] [address] PCP - General Internal Medicine 05/06/21 Henry Kelly MD Pulmonary Department 175 [facility], [address] [place] [address] Physician Pulmonary Disease 09/06/17 06/22/20 documented as of this encounter
--- OUTSIDE RECORDS SUMMARY | 2024-09-11 13:13 | XMS_ITS | Encounter Summary ---
Author Organization [facility] Address [address] [place] [address] Care Team Providers Care Balance Truer Name Role Phone Caitlyn Bowie MD Primary Care Provider +1- [phone] Encounter Details Date Type Department Care Team (Late st Contact Info) Description 06/17/2016 Scanned Document [facility] Health Information Management [address] [place] [address] External, Provider Social History Tobacco Use Types [...] 09/30/2024 8:30 PM EDT Procedure visit [facility] [address] [place] [address] [address] [place] [address] 10/31/2024 1:00 PM EDT Telemedicine [facility] [address] [facility] [address] [place], [place] [address] Ronald Mills MD 240 [facility] A1 [place] [address] documented as of this encounter Visit Diagnoses Not on filedocumented in this encounter Additional Health Concerns Infection Onset Date Last Indicated Resolved Time COVID-19 03/05/2022 03/05/2022 03/15/2022 7:18 PM EDT documented as of this encounter Care Teams Balance Truer Relationship Specialty Start Date End Date Caitlyn Bowie MD 3400 [facility] Max 1 [place] [address] PCP - General Internal Medicine 05/06/21 Henry Kelly MD Pulmonary Department 175 [facility], [address] [place] [address] Physician Pulmonary Disease 09/06/17 06/22/20 documented as of this encounter
--- OUTSIDE RECORDS SUMMARY | 2024-09-11 13:13 | XMS_ITS | Encounter Summary ---
Author Organization [facility] Address [address] [place] [address] Care Team Providers Care Compressed Yeast Supervisor Name Role Phone Caitlyn Bowie MD Primary Care Provider +1- [phone] Encounter Details Date Type Department Care Team (Late st Contact Info) Description 01/09/2019 Scanned Document [facility] Health Information Management [address] [place] [address] External, Provider Social History Tobacco Use Types [...] Description 09/30/2024 8:30 PM EDT Procedure visit [facility] [address] [place] [address] [address] [place] [address] 10/31/2024 1:00 PM EDT [facility] 240 [facility] [address] [place] [address] Ronald Mills MD 240 [facility] A1 [place] [address] documented as of this encounter Procedures Procedure [...] documented as of this encounter Care Teams Compressed Yeast Supervisor Relationship Specialty Start Date End Date Caitlyn Bowie MD 3400 [facility] Max 1 [place] [address] PCP - General Internal Medicine 05/06/21 Henry Kelly MD Pulmonary Department [address] [place] [address], [address] [place] [address] Physician Pulmonary Disease 09/06/17 06/22/20 documented as of this encounter
--- OUTSIDE RECORDS SUMMARY | 2024-09-11 13:13 | XMS_ITS | Encounter Summary ---
Author Organization [facility] and [facility] Address [address] [place] [address] Care Team Providers Care Heavy Antiarmor Weapons Infantryman Name Role Phone Caitlyn Bowie MD Primary Care Provider +1- [phone] Encounter Details Date Type Department Care Team (Late st Contact Info) Description 06/17/2016 Scanned Document [facility] Health Information Management [address] [place] [address] External, Provider Social History Tobacco Use Types [...] Description 09/30/2024 8:30 PM EDT Procedure visit [facility] [address] [place] [address] [address] [place] [address] 10/31/2024 1:00 PM EDT Telemedicine [facility] at [facility] 240 [facility] Building [address] [place], [place] [address] Ronald Mills MD 240 [facility] A1 [place] [address] documented as of this encounter Visit Diagnoses Not on filedocumented in this encounter Additional Health Concerns Infection Onset Date Last Indicated Resolved Time COVID-19 03/05/2022 03/05/2022 03/15/2022 7:18 PM EDT documented as of this encounter Care Teams Heavy Antiarmor Weapons Infantryman Relationship Specialty Start Date End Date Caitlyn Bowie MD 3400 [facility] [address] 1 [place] [address] PCP - General Internal Medicine 05/06/21 Henry Kelly MD Pulmonary Department 175 [facility], [address] [place] [address] Physician Pulmonary Disease 09/06/17 06/22/20 documented as of this encounter
--- OUTSIDE RECORDS SUMMARY | 2024-09-11 13:13 | XMS_ITS | Encounter Summary ---
Author Organization [facility] Address [address] [place] [address] Care Team Providers Care Tile Roofer Name Role Phone Caitlyn Bowie MD Primary Care Provider +1- [phone] Encounter Details Date Type Department Care Team (Late st Contact Info) Description 07/27/2016 Scanned Document Thoracic Oncology Program at [address] [address] Suzy Kong MD [address] [place] [phone] Social History Tobacco Use Types Packs/Day [...] Description 09/30/2024 8:30 PM EDT Procedure visit [facility] [address] [place] [address] [address] [place] [address] 10/31/2024 1:00 PM EDT Telemedicine Cancer Center at [address] [place] [address] Ronald Mills MD [address] [place] [address], [place] [address] documented as of this encounter Visit Diagnoses Not on filedocumented in this encounter Additional Health Concerns Infection Onset Date Last Indicated Resolved Time COVID-19 03/05/2022 03/05/2022 03/15/2022 7:18 PM EDT documented as of this encounter Care Teams Tile Roofer Relationship Specialty Start Date End Date Caitlyn Bowie MD 3400 [facility] 1 [place] [address] PCP - General Internal Medicine 05/06/21 Henry Kelly MD Pulmonary Department [address] [place] [address], [address] [place] [address] Physician Pulmonary Disease 09/06/17 06/22/20 documented as of this encounter
--- OUTSIDE RECORDS SUMMARY | 2024-09-11 13:13 | XMS_ITS | Clinical Summary ---
Author Organization [facility] Address [address] [place] [address] Care Team Providers Care Bottle Hop Name Role Phone Caitlyn Bowie Primary Care [...] Throat tightness Throat tightness Throat tightness Ipratropium [place] Unknown Medium 12/18/2021 Isosorbide Mononitrate 11/23/2020 Other [...] topic Insurance MEDICARE PART A & B [facility] Care Teams Bottle Hop Relationship Specialty Start Date End Date Caitlyn Bowie [address] [place] [address] PCP - General Internal Medicine 07/18/22
--- OUTSIDE RECORDS SUMMARY | 2024-09-11 13:13 | XMS_ITS | Encounter Summary ---
Author Organization [facility] Address [address] [place] [address] Care Team Providers Care Bilingual Student Tutor Name Role Phone Caitlyn Bowie MD Primary Care Provider +1- [phone] Encounter Details Date Type Department Care Team (Late st Contact Info) Description 01/02/2019 Scanned Document [facility] Health Information Management [address] [place] [address] External, Provider Social History Tobacco Use Types [...] Description 09/30/2024 8:30 PM EDT Procedure visit [facility] [address] [place] [address] [address] [place] [address] 10/31/2024 1:00 PM EDT Telemedicine [facility] 240 [facility] [address] [place] [address] Ronald Mills MD 240 [facility] A1 [place] [address] documented as of this encounter Procedures Procedure [...] documented as of this encounter Care Teams Bilingual Student Tutor Relationship Specialty Start Date End Date Caitlyn Bowie MD 3400 [facility] 1 [place] [address] PCP - General Internal Medicine 05/06/21 Henry Kelly MD Pulmonary Department 175 [facility], [address] [place] [address] Physician Pulmonary Disease 09/06/17 06/22/20 documented as of this encounter
--- OUTSIDE RECORDS SUMMARY | 2024-09-11 13:13 | XMS_ITS | Encounter Summary ---
Author Organization [facility] Address [address] [place] [phone] Care Team Providers Care Pattern Room Attendant Name Role Phone Caitlyn Bowie MD Primary Care Provider +1- [phone] Encounter Details Date Type Department Care Team (Late st Contact Info) Description 12/27/2018 Scanned Document [facility] Health Information Management [address] [place] [address] External, Provider Social History Tobacco Use Types [...] Description 09/30/2024 8:30 PM EDT Procedure visit [facility] [address] [place] [address] [address] [place] [address] 10/31/2024 1:00 PM EDT Telemedicine Cancer Center at [facility] 240 [facility] [address] [place] [address] Ronald Mills MD 240 [facility] [address]1 [place] [address] documented as of this encounter Procedures Procedure [...] documented as of this encounter Care Teams Pattern Room Attendant Relationship Specialty Start Date End Date Caitlyn Bowie MD 3400 [facility] [address] 1 [place] [address] PCP - General Internal Medicine 05/06/21 Henry Kelly MD Pulmonary Department [address] [place] [address], [address] [place] [address] Physician Pulmonary Disease 09/06/17 06/22/20 documented as of this encounter
--- OUTSIDE RECORDS SUMMARY | 2024-09-11 13:13 | XMS_ITS | Encounter Summary ---
Author Organization [facility] and [facility] Address [address] [place] [address] Care Team Providers Care Press Operator Automatic Name Role Phone Caitlyn Bowie MD Primary Care Provider +1- [phone] Encounter Details Date Type Department Care Team (Late st Contact Info) Description 07/08/2016 Scanned Document [facility] Health Information Management [address] [place] [address] External, Provider Social History Tobacco Use Types [...] Description 09/30/2024 8:30 PM EDT Procedure visit [facility] [address] [place] [address] [address] [place] [address] 10/31/2024 1:00 PM EDT Telemedicine [facility] at [facility] 240 [facility] Building [address] [place], [place] [address] Ronald Mills MD 240 [facility] [address]1 [place] [address] documented as of this encounter Procedures Procedure Name Priority Date/Time Associated Diagnosis Comments LAB SCAN Routine 07/08/2016 documented in this encounter Results * Lab Scan (07/08/2016) Blood specimen (specimen) us Provider External LAB BLOOD ORDERABLES Final Res ult Performing Organization Address City/State/[facility] Co de Phone Number [facility] documented in this encounter Visit Diagnoses Not on filedocumented in this encounter Additional Health Concerns Infection Onset Date Last Indicated Resolved Time COVID-19 03/05/2022 03/05/2022 03/15/2022 7:18 PM EDT documented as of this encounter Care Teams Press Operator Automatic Relationship Specialty Start Date End Date Caitlyn Bowie MD 3400 [facility] [address] 1 [place] [address] PCP - General Internal Medicine 05/06/21 Henry Kelly MD Pulmonary Department 175 [facility], [address] [place] [address] Physician Pulmonary Disease 09/06/17 06/22/20 documented as of this encounter
[2024-09-12 20:29] LABS: Anti DNA DS Antibody 1 IU/mL; Antibody to SS-A Antigen <1.0 NEG AI (<1.0 NEG); Antibody to SS-B Antigen <1.0 NEG AI (<1.0 NEG)
[2024-09-17 13:08] LABS: ANA Pattern 2 Nuclear, Nucleolar; Anti Nuclear Antibody Pattern Nuclear, Homogeneous; Anti Nuclear Antibody Screen POSITIVE (NEGATIVE); Anti Nuclear Antibody Titer 1:40 titer
== END 2024-09-11 09:57 | disposition home or self-care (01) ==
LOC: HO.LAB 09:56
PROVIDERS: Internal Medicine Cardiovascular Disease; PCP Internal Medicine; Visit Provider Hospitalist
DX: J41.0 Simple chronic bronchitis (principal); I50.32 Chronic diastolic (congestive) heart failure; J96.12 Chronic respiratory failure with hypercapnia; R07.81 Pleurodynia; G47.31 Primary central sleep apnea; I27.20 Pulmonary hypertension, unspecified; R91.8 Other nonspecific abnormal finding of lung field; J96.11 Chronic respiratory failure with hypoxia; G47.33 Obstructive sleep apnea (adult) (pediatric); J70.1 Chronic and other pulmonary manifestations due to radiation; C34.12 Malignant neoplasm of upper lobe, left bronchus or lung; J90 Pleural effusion, not elsewhere classified
CPT/HCPCS: 36415; 80048; 82803; 83880; 84484; 85025; 85652; 86038; 86039; 86225; 86235; 99212

== ENCOUNTER 2024-09-15 21:01 | Emergency (ER) | payer MEDICARE, SELFPAY ==
--- NOTE | ~2024-09-15 | CT_ITS ---
CLINICAL HISTORY: hit head CT head without contrast Comparison: CT/CT/SR - CT HEAD/BRAIN WO IV CON - 08/30/24 12:44 EST Findings: No intra-axial mass, midline shift, hydrocephalus, or acute hemorrhage. No significant atrophy-like change or white matter disease. There is no sinus or mastoid fluid. The orbits are unremarkable. There is no acute fracture. IMPRESSION: 1. No acute intracranial findings. This document has been electronically signed by: Mick Ogden MD on 09/15/2024 23:59:30
--- NOTE | ~2024-09-15 | CT_ITS ---
CLINICAL HISTORY: hit head CT cervical spine without contrast Comparison: None Findings: Grade 1 degenerative anterolisthesis of C4 on C5. Moderate multilevel degenerative disc disease and facet arthrosis. No acute fractures or dislocations. No acute findings on limited view of the intracranial contents. No cervical fluid collections or masses. Lung apices are clear. IMPRESSION: No acute findings. This document has been electronically signed by: Mick Ogden MD on 09/16/2024 00:02:30
[2024-09-15 21:09] VITALS: BP 154/68; PULSE 90; RESP 18; TEMP 36.8; O2SAT 98; BMI 23.1
[2024-09-15 21:55] LABS: MANUAL DIFF FLAG NO
[2024-09-15 21:57] LABS: Basophils Absolute Auto 0.1 X10*3/uL (0.0-0.2); Basophils Percent Auto 0.8 % (0-2); Eosinophils Absolute Auto 0.2 X10*3/uL (0.0-0.4); Eosinophils Percent Auto 1.3 % (0-4); Hematocrit 38.1 % (37.0-47.0); Hemoglobin 12.5 g/dl (12.0-16.0); Imm Gran Abs Auto 0.16 X10*3/uL (0.00-0.03); Imm Gran Pct Auto 1.4 % (0.0-0.4); Lymphocytes Absolute Auto 1.1 X10*3/uL (1.2-4.9); Lymphocytes Percent Auto 9.2 % (20-40); Mean Corpuscular HGB Conc 32.8 g/dl (31.0-35.0); Mean Corpuscular Hemoglobin 33.2 pg (27.0-33.0); Mean Corpuscular Volume 101.1 fL (80.0-98.0); Monocytes Absolute Auto 1.2 X10*3/uL (0.1-1.2); Monocytes Percent Auto 10.1 % (2-11); Neutrophils Absolute Auto 8.9 x10*3/uL (2.0-8.3); Neutrophils Percent Auto 77.2 % (45-73); Platelet Count 254 X10*3/uL (160-400); Red Blood Count 3.77 X10*6/uL (4.20-5.50); Red Cell Distribution Width 13.9 % (11.0-16.0); White Blood Count 11.5 X10*3/uL (4.8-10.8)
[2024-09-15 22:02] LABS: INTERNATIONAL NORM RATIO 1.6 (0.9-1.1); Prothrombin Time 18.4 SEC (10.9-12.4)
[2024-09-15 22:05] LABS: Partial Thromboplastin Time 47.7 SEC (26.0-36.8)
[2024-09-16 00:21] VITALS: PULSE 76; RESP 18; TEMP 36.4; O2SAT 98
[2024-09-16 00:24] VITALS: BP 137/66
--- NOTE | 2024-09-16 00:29 | ED_ITS ---
HPI - General Adult General Chief complaint: General Medical Stated complaint: on blood thinners bumped head Time Seen by Provider: 09/16/24 00:25 Source: patient Mode of arrival: ambulatory Limitations: no limitations History of Present Illness ED Provider: HPI narrative: Patient is on Coumadin for PE came here because hit her head while getting up to the freezer door at 18:30 no loss of consciousness patient otherwise feels normal no nausea no vomiting Related Data Home Medications ?Medication ?Instructions ?Recorded ?Confirmed CPAP (CPAP Machine/Device) 06/30/22 09/05/24 Oxygen Home Use 06/30/22 09/05/24 nebulizers 06/30/22 09/05/24 epinephrine 0.3 mg/0.3 mL 0.3 mg IM USEASDIRECTD PRN 07/14/22 09/05/24 injection, auto-injector Allergic Reaction levothyroxine 25 mcg tablet 50 mcg PO SUSA@0600 01/05/24 09/05/24 (Synthroid) warfarin 2.5 mg tablet (Jantoven) 1.5 mg PO DAILY@1800 01/05/24 09/05/24 docusate sodium 100 mg capsule 100 mg PO DAILY 01/14/24 09/05/24 fluticasone propionate 50 2 spray intranasal DAILY 02/01/24 09/05/24 mcg/actuation nasal spray,suspension guaifenesin 400 mg tablet 400 mg PO TID 02/01/24 09/05/24 magnesium hydroxide 400 mg/5 mL 30 ml PO NEEDED PRN 02/01/24 09/05/24 oral suspension (Milk of Magnesia) Constipation, No BM in 3 days Previous Rx's ?Medication ?Instructions ?Recorded diazepam 5 mg tablet 5 mg PO BID PRN anxiety #14 tabs 02/04/24 simethicone 80 mg chewable tablet 80 mg PO QIDWMHS #20 tabs 02/04/24 (Gas Relief (simethicone)) Advair HFA 230 mcg-21 2 puff inhalation BID 90 days #36 03/13/24 mcg/actuation aerosol inhaler grams (fluticasone propion-salmeterol) albuterol sulfate 90 mcg/actuation 2 inh inhalation Q6H PRN shortness 04/01/24 aerosol inhaler of breath or wheezing 90 days #3 ea furosemide 40 mg tablet 80 mg (2 x 40 mg) PO BID #360 tabs 05/01/24 metoprolol succinate 50 mg 50 mg PO BID #180 tabs 05/10/24 tablet,extended release 24 hr (Toprol XL) levocetirizine 5 mg tablet 5 mg PO DAILY 90 days #90 tabs 05/23/24 prednisone 2.5 mg tablet 2.5 mg PO DAILY 90 days #90 tabs 07/01/24 trazodone 50 mg tablet 100 mg (2 x 50 mg) PO BEDTIME #180 07/01/24 tabs meclizine 25 mg tablet 25 mg PO Q8H PRN dizziness 10 days 07/22/24 #30 tabs rosuvastatin 10 mg tablet 10 mg PO ONCE #90 tabs 08/02/24 potassium chloride 20 mEq 40 meq (2 x 20 mEq) PO DAILY #60 08/12/24 tablet,extended release tabs montelukast 10 mg tablet 10 mg PO DAILY #90 tabs 08/24/24 hydroxychloroquine 200 mg tablet 200 mg PO DAILY 30 days #30 tabs 09/11/24 mupirocin 2 % topical ointment 1 appl topical TID 14 days #15 09/11/24 grams zolpidem 5 mg tablet (Ambien) 5 mg PO BEDTIME PRN sleep 30 days 09/11/24 #30 tabs Allergies Allergy/AdvReac Type Severity Reaction Status Date / Time morphine Allergy Severe Itching Verified 09/15/24 21:11 avocado [AVOCADO] Allergy Mild ITCHY Verified 09/15/24 21:11 THROAT, RASH azithromycin [AZITHROMYCIN] Allergy Mild ITCHY Verified 09/15/24 21:11 THROAT, RASH barium iodide [BARIUM IODIDE] Allergy Mild ITCHY Verified 09/15/24 21:11 THROAT, RASH barium sulfate Allergy Mild Itch Verified 09/15/24 21:11 bee pollen [BEE STINGS] Allergy Mild ITCHY Verified 09/15/24 21:11 THROAT, RASH ciprofloxacin [From CIPRO] Allergy Mild ITCHY Verified 09/15/24 21:11 THROAT, RASH clarithromycin [From BIAXIN] Allergy Mild ITCHY Verified 09/15/24 21:11 THROAT, RASH diatrizoate meglumine Allergy Mild ITCHY Verified 09/15/24 21:11 [From GASTROGRAFIN] THROAT, RASH diatrizoate sodium Allergy Mild ITCHY Verified 09/15/24 21:11 [From GASTROGRAFIN] THROAT, RASH diclofenac [From VOLTAREN] Allergy Mild ITCHY Verified 09/15/24 21:11 THROAT, RASH erythromycin base Allergy Mild ITCHY Verified 09/15/24 21:11 [ERYTHROMYCIN BASE] THROAT, RASH gentamicin [GENTAMICIN] Allergy Mild ITCHY Verified 09/15/24 21:11 THROAT, RASH Iodinated Contrast Media Allergy Mild ITCHY Verified 09/15/24 21:11 [IVP DYE] THROAT, RASH levofloxacin [From LEVAQUIN] Allergy Mild ITCHY Verified 09/15/24 21:11 THROAT, RASH metronidazole [From FLAGYL] Allergy Mild ITCHY Verified 09/15/24 21:11 THROAT, RASH moxifloxacin [From AVELOX] Allergy Mild ITCHY Verified 09/15/24 21:11 THROAT, RASH Penicillins [PENICILLINS] Allergy Mild ITCHY Verified 09/15/24 21:11 THROAT, RASH shrimp [SHRIMP] Allergy Mild ITCHY Verified 09/15/24 21:11 THROAT, RASH Sulfa (Sulfonamide Allergy Mild ITCHY Verified 09/15/24 21:11 Antibiotics) THROAT, [SULFA (SULFONAMIDE RASH ANTIBIOTICS)] vancomycin [VANCOMYCIN] Allergy Mild ITCHY Verified 09/15/24 21:11 THROAT, RASH clindamycin AdvReac Intermediate Unknown Verified 09/15/24 21:11 Review of Systems 2 Review of Systems: Yes all other systems are reviewed and are negative PMFSH Past Medical History Medical History Chronic hypercapnic respiratory failure KANDY treated with BiPAP COPD (chronic obstructive pulmonary disease) Open wound Warfarin anticoagulation Complex sleep apnea syndrome Leg pain Anemia Tachycardia DVT (deep venous thrombosis) Compression fracture of body of thoracic vertebra ASD (atrial septal defect) Pleuritic chest pain History of COVID-19 Chronic anticoagulation Hypothyroidism GERD (gastroesophageal reflux disease) Hyperlipidemia Hypertension Factor 5 Leiden mutation, heterozygous History of non-ST elevation myocardial infarction (NSTEMI) Hypoxia Anxiety PTSD (post-traumatic stress disorder) Hemoptysis Dyspnea Tracheobronchitis CLARA positive Diverticulitis Allergic bronchitis (HFpEF) heart failure with preserved ejection fraction Subarachnoid bleed Insomnia Anti-phospholipid antibody syndrome Hypogammaglobulinemia Chronic respiratory failure Arterial insufficiency of lower extremity Complex regional pain syndrome i of right lower limb Post herpetic neuralgia Pulmonary hypertension Pericardial effusion Pulmonary emboli Pleural effusion Radiation fibrosis of lung Pneumonitis Pulmonary nodules Lung cancer Surgical History History of colonoscopy History of lung surgery History of tonsillectomy History of hysterectomy S/P mitral valve clip implantation History of cardiac cath Family History Family History Sister No problems noted. Mother Cardiovascular disease Daughter Tachycardia Other KANDY (obstructive sleep apnea) Social History Social History Household Members: Other Housing: [facility] Do you presently have visiting nurse or other home services: Yes (at home had [employer]VIR[employer]MENT[employer]ETER that came to visit her) Unable to assess alcohol history related to: Unknown Alcohol intake: former Comment: stand by assist with ambulation Patient Tobacco Use Status: Never used Tobacco Smoked in Last 30 Days: No Second Hand Smoke Exposure: No Advance Directives: Yes Advance Directives on File: Yes Advance Directives Date on File: 06/15/22 service: No Current occupational status: retired Physical Exam ED Vital Signs: Vital Signs - 24 hr 09/15/24 21:09 09/16/24 00:21 09/16/24 00:24 Temperature 98.3 F 97.6 F Pulse Rate 90 76 Respiratory Rate 18 18 Blood Pressure 154/68 H 137/66 Pulse Oximetry 98 98 Oxygen Delivery Method Room Air Room Air 09/16/24 00:40 Temperature 97.6 F Pulse Rate 76 Respiratory Rate 18 Blood Pressure 137/66 Pulse Oximetry 97 Oxygen Delivery Method Nasal Cannula BMI result Body Mass Index 23.1 Appearance: Alert. Oriented X3. No acute distress. Eyes: PERRLA, No Nystagmus HEENT: Pharynx normal. Oral Mucosa moist Neck: Normal inspection. Neck supple. No midline tenderness no signs of injury CVS: Normal heart rate and rhythm. Pulses normal. Respiratory: No respiratory distress. Equal air entry bilateral, no wheezing/rales/rhonchi Abdomen: Soft and nontender. Bowel sounds are present, no mass palpable, no CVA tenderness Skin: Skin warm and dry. Normal skin color. Normal skin turgor. Extremities: No lower extremity edema. No calf tenderness Neuro: Oriented X 3. No motor deficit. No sensory deficit.No cerebellar signs , cranial nerves II-XII intact Medical Decision Making Medical Decision Making [facility] Narrative: Patient with minor head injury on Coumadin CT scan of the head is negative for acute bleed patient is alert oriented x3 no significant headache advised to follow up as outpatient if any concerns Differential Diagnosis Differential Diagnoses: The differential diagnosis associated with the presentation includes SDH/SAH /skull fracture Lab Data [facility] Lab Attestation statement: I reviewed the patient's lab results. 09/15/24 21:30 09/15/24 21:30 Labs: Lab Results 09/15/24 Range/Units 21:30 WBC 11.5 H (4.8-10.8) X10*3/uL RBC 3.77 L (4.20-5.50) X10*6/uL Hgb 12.5 (12.0-16.0) g/dl Hct 38.1 (37.0-47.0) % MCV 101.1 H (80.0-98.0) fL MCH 33.2 H (27.0-33.0) pg MCHC 32.8 (31.0-35.0) g/dl RDW 13.9 (11.0-16.0) % Plt Count 254 (160-400) X10*3/uL MPV 11.0 (9.4-12.3) fL Immature Gran % (Auto) 1.4 H (0.0-0.4) % Neut % (Auto) 77.2 H (45-73) % Lymph % (Auto) 9.2 L (20-40) % Lucas % (Auto) 10.1 (2-11) % Eos % (Auto) 1.3 (0-4) % Baso % (Auto) 0.8 (0-2) % Lymph # (Auto) 1.1 L (1.2-4.9) X10*3/uL Lucas # (Auto) 1.2 (0.1-1.2) X10*3/uL Eos # (Auto) 0.2 (0.0-0.4) X10*3/uL Baso # (Auto) 0.1 (0.0-0.2) X10*3/uL Abs Immat Gran (auto) 0.16 H (0.00-0.03) X10*3/uL Absolute Neuts (auto) 8.9 H (2.0-8.3) x10*3/uL Absolute Nucleated RBC 0.000 (0.0-0.012) X10*3/uL Nucleated RBC % (auto) 0.0 (0.0-0.2) /100WBC PT 18.4 H (10.9-12.4) SEC INR 1.6 H (0.9-1.1) APTT 47.7 H (26.0-36.8) SEC Sodium Cancelled Potassium Cancelled Chloride Cancelled Carbon Dioxide Cancelled Anion Gap Cancelled BUN Cancelled Creatinine Cancelled Estim Creat Clear Calc Cancelled Estimated GFR Cancelled Random Glucose Cancelled Calcium Cancelled Total Bilirubin Cancelled AST Cancelled ALT Cancelled Alkaline Phosphatase Cancelled Total Protein Cancelled Albumin Cancelled Independent Interpretation I performed an independent interpretation of an: CT Scan Radiology Impression Discussion of test interpretation with radiology: I have reviewed the radiologist's reading. Radiologist Impression: NAD Discharge Plan Discharge Clinical Impression: Minor closed head injury Patient Disposition: Home, Self-Care Instructions: Head Injury (ED) Additional Instructions: Your CT scan of the head and cervical spine is negative for acute Continue take your medication and follow with your PCP Prescriptions: No Action Advair HFA 230-21 mcg/actuation HFA aerosol inhaler 2 puff inhalation BID 90 Days Qty: 36 4RF albuterol sulfate 90 mcg/actuation HFA aerosol inhaler 2 inh inhalation Q6H PRN (Reason: shortness of breath or wheezing) 90 Days Qty: 3 3RF furosemide 40 mg tablet 80 mg PO BID Qty: 360 3RF metoprolol succinate [Toprol XL] 50 mg tablet extended release 24 hr 50 mg PO BID Qty: 180 3RF levocetirizine 5 mg tablet 5 mg PO DAILY 90 Days Qty: 90 3RF prednisone 2.5 mg tablet 2.5 mg PO DAILY 90 Days Qty: 90 3RF Rx Instructions: On odd days trazodone 50 mg tablet 100 mg PO BEDTIME Qty: 180 3RF meclizine 25 mg tablet 25 mg PO Q8H PRN (Reason: dizziness) 10 Days Qty: 30 0RF rosuvastatin 10 mg tablet 10 mg PO ONCE Qty: 90 2RF potassium chloride 20 mEq tablet extended release 40 meq PO DAILY Qty: 60 3RF montelukast 10 mg tablet 10 mg PO DAILY Qty: 90 3RF warfarin [Jantoven] 2.5 mg Tablet 1.5 mg PO DAILY@1800 Patient Comments: Dose ranges based on INR goal of 1.5-2. levothyroxine [Synthroid] 25 mcg Tablet 50 mcg PO SUSA@0600 docusate sodium 100 mg Capsule 100 mg PO DAILY magnesium hydroxide [Milk of Magnesia] 400 mg/5 mL Suspension 30 ml PO NEEDED PRN (Reason: Constipation, No BM in 3 days ) fluticasone propionate 50 mcg/actuation spray,suspension 2 spray intranasal DAILY guaifenesin 400 mg Tablet 400 mg PO TID simethicone [Gas Relief (simethicone)] 80 mg Tablet,Chewable 80 mg PO QIDWMHS Qty: 20 0RF diazepam 5 mg tablet 5 mg PO BID PRN (Reason: anxiety) Qty: 14 0RF (DME) nebulizers Misc See Rx Instructions .Route Rx Instructions: As directed (DME) CPAP Machine/Device Device See Rx Instructions .Route Rx Instructions: As directed (DME) Oxygen Home Use Kit See Rx Instructions .Route Rx Instructions: As directed epinephrine 0.3 mg/0.3 mL auto-injector 0.3 mg IM USEASDIRECTD PRN (Reason: Allergic Reaction) hydroxychloroquine 200 mg tablet 200 mg PO DAILY 30 Days Qty: 30 6RF zolpidem [Ambien] 5 mg tablet 5 mg PO BEDTIME PRN (Reason: sleep) 30 Days Qty: 30 3RF mupirocin 2 % ointment 1 appl topical TID 14 Days Qty: 15 1RF Interventions: ED Discharge Assessment Last Done: 09/16/24 00:40 Discharge Date/Time: 09/16/24 00:49 Print Language: Emirati
[2024-09-16 00:40] VITALS: BP 137/66; PULSE 76; RESP 18; TEMP 36.4; O2SAT 97
== END 2024-09-16 00:49 | disposition home or self-care (01) ==
PROVIDERS: Physician Assistant; Emergency Provider Internal Medicine; PCP Internal Medicine
DX: S09.8XXA Other specified injuries of head, initial encounter (principal); W22.8XXA Striking against or struck by other objects, initial encounter; Z86.711 Personal history of pulmonary embolism; Z79.01 Long term (current) use of anticoagulants; Y93.9 Activity, unspecified; Y92.019 Unspecified place in single-family (private) house as the place of occurrence of the external cause; Y99.9 Unspecified external cause status
CPT/HCPCS: 36415; 70450; 72125; 80053; 85025; 85610; 85730; 99284

== ENCOUNTER → 2024-09-15 21:16 | Outpatient (BNV) | payer MEDICARE, SELFPAY | PROVIDERS: Emergency Provider Internal Medicine; PCP Internal Medicine; Visit Provider Student in an Organized Health Care Education/Training Program | DX: S09.90XA Unspecified injury of head, initial encounter (principal) | CPT/HCPCS: 70450; 72125 ==

== ENCOUNTER 2024-09-23 08:25 | Outpatient (REF) | payer MEDICARE, SELFPAY ==
[2024-09-23 09:44] LABS: Anion Gap 12 (12-20); Blood Urea Nitrogen 19 mg/dL (9-16); Calcium 10.6 mg/dL (8.4-10.2); Carbon Dioxide 30 mmol/L (22-29); Chloride 101 mmol/L (96-108); Cholesterol 172 mg/dL (<200); Estimated Glomerular Filt Rate > 60; Glucose Random 98 mg/dL (60-115); HDL Cholesterol 66 mg/dL (>40); LDL Cholesterol Calculated 90 mg/dL (<100); Sodium 139 mmol/L (135-145); Triglycerides 81 mg/dL (<150)
== END 2024-09-23 08:26 | disposition home or self-care (01) ==
LOC: HO.LAB 08:25
PROVIDERS: Absent Provider Internal Medicine Cardiovascular Disease; PCP Internal Medicine; Referring Provider Hospitalist; Visit Provider Internal Medicine
DX: Z00.00 Encounter for general adult medical examination without abnormal findings (principal); E87.6 Hypokalemia
CPT/HCPCS: 36415; 80048; 80061

== ENCOUNTER 2024-09-27 13:45 | Emergency (ER) | payer MEDICARE, SELFPAY ==
--- NOTE | ~2024-09-27 | US_ITS ---
EXAMINATION: US TRIPLEX LOWER EXTREMITY, LEFT CLINICAL INFORMATION: Pain, left lower extremity. COMPARISON: August 30, 2024. TECHNIQUE: Color-flow triplex imaging with spectral analysis and compression Doppler were performed on the left lower extremity. FINDINGS: Respiratory variation, normal compression and augmented flow are noted throughout the common femoral vein, superficial femoral vein, profunda femoral vein, popliteal vein and midcalf peroneal and posterior tibial venous segments . There is no Levy's cyst. US/US venous duplex LE LT IMPRESSION: No acute deep venous thrombosis involving the left lower extremity. Negative for DVT. Electronically signed by: Kt Millan MD 09/27/2024 03:36 PM EDT
--- NOTE | ~2024-09-27 | XR_ITS ---
EXAMINATION: XR CHEST 2 VIEWS HISTORY: sob COMPARISON: Comparison is made with the prior examination dated 09/09/2024. FINDINGS: PA and lateral views of the chest are submitted. There is a small left pleural effusion which has decreased in size. There is adjacent subsegmental atelectasis. The right lung is clear. There is no right pleural effusion, pneumothorax, or pulmonary vascular congestion. The heart remains enlarged. A metallic clip projects over the heart. The aorta is calcified. There is degenerative disc disease of the spine. XR/XR chest 2V IMPRESSION: Cardiomegaly. Small left pleural effusion with interval decrease in size since the prior study. Electronically signed by: Cristian Rhodes MD 09/27/2024 03:07 PM EDT
[2024-09-27 13:51] VITALS: BP 134/65; PULSE 87; RESP 16; TEMP 36.6; O2SAT 99; BMI 23.4
--- NOTE | 2024-09-27 13:54 | ED_ITS ---
HPI - SOB/Dyspnea General Chief Complaint: Extremity Injury, Lower Stated Complaint: SOB, leg pain, history of blood clots Related Data Home Medications ?Medication ?Instructions ?Recorded ?Confirmed CPAP (CPAP Machine/Device) 06/30/22 09/05/24 Oxygen Home Use 06/30/22 09/05/24 nebulizers 06/30/22 09/05/24 epinephrine 0.3 mg/0.3 mL 0.3 mg IM USEASDIRECTD PRN 07/14/22 09/05/24 injection, auto-injector Allergic Reaction levothyroxine 25 mcg tablet 50 mcg PO SUSA@0600 01/05/24 09/05/24 (Synthroid) warfarin 2.5 mg tablet (Jantoven) 1.5 mg PO DAILY@1800 01/05/24 09/05/24 docusate sodium 100 mg capsule 100 mg PO DAILY 01/14/24 09/05/24 fluticasone propionate 50 2 spray intranasal DAILY 02/01/24 09/05/24 mcg/actuation nasal spray,suspension guaifenesin 400 mg tablet 400 mg PO TID 02/01/24 09/05/24 magnesium hydroxide 400 mg/5 mL 30 ml PO NEEDED PRN 02/01/24 09/05/24 oral suspension (Milk of Magnesia) Constipation, No BM in 3 days Previous Rx's ?Medication ?Instructions ?Recorded diazepam 5 mg tablet 5 mg PO BID PRN anxiety #14 tabs 02/04/24 simethicone 80 mg chewable tablet 80 mg PO QIDWMHS #20 tabs 02/04/24 (Gas Relief (simethicone)) Advair HFA 230 mcg-21 2 puff inhalation BID 90 days #36 03/13/24 mcg/actuation aerosol inhaler grams (fluticasone propion-salmeterol) albuterol sulfate 90 mcg/actuation 2 inh inhalation Q6H PRN shortness 04/01/24 aerosol inhaler of breath or wheezing 90 days #3 ea furosemide 40 mg tablet 80 mg (2 x 40 mg) PO BID #360 tabs 05/01/24 metoprolol succinate 50 mg 50 mg PO BID #180 tabs 05/10/24 tablet,extended release 24 hr (Toprol XL) levocetirizine 5 mg tablet 5 mg PO DAILY 90 days #90 tabs 05/23/24 prednisone 2.5 mg tablet 2.5 mg PO DAILY 90 days #90 tabs 07/01/24 trazodone 50 mg tablet 100 mg (2 x 50 mg) PO BEDTIME #180 07/01/24 tabs meclizine 25 mg tablet 25 mg PO Q8H PRN dizziness 10 days 07/22/24 #30 tabs rosuvastatin 10 mg tablet 10 mg PO ONCE #90 tabs 08/02/24 potassium chloride 20 mEq 40 meq (2 x 20 mEq) PO DAILY #60 08/12/24 tablet,extended release tabs montelukast 10 mg tablet 10 mg PO DAILY #90 tabs 08/24/24 hydroxychloroquine 200 mg tablet 200 mg PO DAILY 30 days #30 tabs 09/11/24 mupirocin 2 % topical ointment 1 appl topical TID 14 days #15 09/11/24 grams zolpidem 5 mg tablet (Ambien) 5 mg PO BEDTIME PRN sleep 30 days 09/11/24 #30 tabs Allergies Allergy/AdvReac Type Severity Reaction Status Date / Time morphine Allergy Severe Itching Verified 09/27/24 13:53 avocado [AVOCADO] Allergy Mild ITCHY Verified 09/27/24 13:53 THROAT, RASH azithromycin [AZITHROMYCIN] Allergy Mild ITCHY Verified 09/27/24 13:53 THROAT, RASH barium iodide [BARIUM IODIDE] Allergy Mild ITCHY Verified 09/27/24 13:53 THROAT, RASH barium sulfate Allergy Mild Itch Verified 09/27/24 13:53 bee pollen [BEE STINGS] Allergy Mild ITCHY Verified 09/27/24 13:53 THROAT, RASH ciprofloxacin [From CIPRO] Allergy Mild ITCHY Verified 09/27/24 13:53 THROAT, RASH clarithromycin [From BIAXIN] Allergy Mild ITCHY Verified 09/27/24 13:53 THROAT, RASH diatrizoate meglumine Allergy Mild ITCHY Verified 09/27/24 13:53 [From GASTROGRAFIN] THROAT, RASH diatrizoate sodium Allergy Mild ITCHY Verified 09/27/24 13:53 [From GASTROGRAFIN] THROAT, RASH diclofenac [From VOLTAREN] Allergy Mild ITCHY Verified 09/27/24 13:53 THROAT, RASH erythromycin base Allergy Mild ITCHY Verified 09/27/24 13:53 [ERYTHROMYCIN BASE] THROAT, RASH gentamicin [GENTAMICIN] Allergy Mild ITCHY Verified 09/27/24 13:53 THROAT, RASH Iodinated Contrast Media Allergy Mild ITCHY Verified 09/27/24 13:53 [IVP DYE] THROAT, RASH levofloxacin [From LEVAQUIN] Allergy Mild ITCHY Verified 09/27/24 13:53 THROAT, RASH metronidazole [From FLAGYL] Allergy Mild ITCHY Verified 09/27/24 13:53 THROAT, RASH moxifloxacin [From AVELOX] Allergy Mild ITCHY Verified 09/27/24 13:53 THROAT, RASH Penicillins [PENICILLINS] Allergy Mild ITCHY Verified 09/27/24 13:53 THROAT, RASH shrimp [SHRIMP] Allergy Mild ITCHY Verified 09/27/24 13:53 THROAT, RASH Sulfa (Sulfonamide Allergy Mild ITCHY Verified 09/27/24 13:53 Antibiotics) THROAT, [SULFA (SULFONAMIDE RASH ANTIBIOTICS)] vancomycin [VANCOMYCIN] Allergy Mild ITCHY Verified 09/27/24 13:53 THROAT, RASH clindamycin AdvReac Intermediate Unknown Verified 09/27/24 13:53 [facility] Past Medical History Medical History Chronic hypercapnic respiratory failure KANDY treated with BiPAP COPD (chronic obstructive pulmonary disease) Open wound Warfarin anticoagulation Complex sleep apnea syndrome Leg pain Anemia Tachycardia DVT (deep venous thrombosis) Compression fracture of body of thoracic vertebra ASD (atrial septal defect) Pleuritic chest pain History of COVID-19 Chronic anticoagulation Hypothyroidism GERD (gastroesophageal reflux disease) Hyperlipidemia Hypertension Factor 5 Leiden mutation, heterozygous History of non-ST elevation myocardial infarction (NSTEMI) Hypoxia Anxiety PTSD (post-traumatic stress disorder) Hemoptysis Dyspnea Tracheobronchitis CLARA positive Diverticulitis Allergic bronchitis (HFpEF) heart failure with preserved ejection fraction Subarachnoid bleed Insomnia Anti-phospholipid antibody syndrome Hypogammaglobulinemia Chronic respiratory failure Arterial insufficiency of lower extremity Complex regional pain syndrome i of right lower limb Post herpetic neuralgia Pulmonary hypertension Pericardial effusion Pulmonary emboli Pleural effusion Radiation fibrosis of lung Pneumonitis Pulmonary nodules Lung cancer Surgical History History of colonoscopy History of lung surgery History of tonsillectomy History of hysterectomy S/P mitral valve clip implantation History of cardiac cath Family History Family History Sister No problems noted. Mother Cardiovascular disease Daughter Tachycardia Other KANDY (obstructive sleep apnea) Social History Social History Household Members: Other Housing: Retirement Do you presently have visiting nurse or other home services: Yes (at home had INJECTION SPECIALIST that came to visit her) Unable to assess alcohol history related to: Unknown Alcohol intake: former Comment: stand by assist with ambulation Patient Tobacco Use Status: Never used Tobacco Second Hand Smoke Exposure: No Advance Directives: Yes Advance Directives on File: Yes Advance Directives Date on File: 06/15/22 service: No Current occupational status: retired Physical Exam 2 Vital Signs: Vital Signs: Last Vital Signs Temp 98 F 09/27/24 13:51 Pulse 87 09/27/24 13:51 Resp 16 09/27/24 13:51 BP 134/65 09/27/24 13:51 Pulse Ox 99 09/27/24 13:51 O2 Del Method Nasal Cannula 09/27/24 13:51 Oxygen Flow Rate 2 09/27/24 13:51 BMI result Body Mass Index 23.4 Course Course Course Narrative: This is a Rapid Medical Exam performed in triage by Joann Logan PA-C. Full HPI, ROS and PE to be performed by primary ED provider. 79 yo F w/PMHx KANDY on BiPAP, COPD 2L NC, PE/DVT on Coumadin, ASD, GERD, HLD, HTN, hypothyroid, factor 5 Leiden, antiphospholipid syndrome, presenting to the ED c/o atraumatic LLE pain x few days and SOB. also reports intermittent chest pain, follows with Dr. Cadet, call the office yesterday. Also reports small cut to right thumb s/p putting spoons away last night. Tetanus up-to-date. Admits last INR was 1.2 this morning PE: +LLE edema & + calf ttp. +superficial abrasion to R thumb Plan: EKG, labs, CXR, US Medical Decision Making Lab Data 09/27/24 14:26 09/27/24 14:26 Labs: Lab Results 09/27/24 Range/Units 14:26 WBC 14.1 H (4.8-10.8) X10*3/uL RBC 3.50 L (4.20-5.50) X10*6/uL Hgb 11.6 L (12.0-16.0) g/dl Hct 34.8 L (37.0-47.0) % MCV 99.4 H (80.0-98.0) fL MCH 33.1 H (27.0-33.0) pg MCHC 33.3 (31.0-35.0) g/dl RDW 13.8 (11.0-16.0) % Plt Count 234 (160-400) X10*3/uL MPV 10.6 (9.4-12.3) fL Immature Gran % (Auto) 1.1 H (0.0-0.4) % Neut % (Auto) 82.2 H (45-73) % Lymph % (Auto) 6.9 L (20-40) % Roosevelt % (Auto) 8.8 (2-11) % Eos % (Auto) 0.7 (0-4) % Baso % (Auto) 0.3 (0-2) % Lymph # (Auto) 1.0 L (1.2-4.9) X10*3/uL Roosevelt # (Auto) 1.2 (0.1-1.2) X10*3/uL Eos # (Auto) 0.1 (0.0-0.4) X10*3/uL Baso # (Auto) 0.0 (0.0-0.2) X10*3/uL Abs Immat Gran (auto) 0.16 H (0.00-0.03) X10*3/uL Absolute Neuts (auto) 11.5 H (2.0-8.3) x10*3/uL Absolute Nucleated RBC 0.000 (0.0-0.012) X10*3/uL Nucleated RBC % (auto) 0.0 (0.0-0.2) /100WBC PT 20.4 H (10.9-12.4) SEC INR 1.7 H (0.9-1.1) Sodium 137 (135-145) mmol/L Potassium 3.6 (3.3-5.1) mmol/L Chloride 100 (96-108) mmol/L Carbon Dioxide 31 H (22-29) mmol/L Anion Gap 10 L (12-20) BUN 27 H (9-16) mg/dL Creatinine 0.73 (0.5-1.4) mg/dL Estim Creat Clear Calc 47.8 Estimated GFR > 60 Random Glucose 85 (60-115) mg/dL Calcium 10.1 (8.4-10.2) mg/dL Magnesium 2.5 (1.6-2.6) mg/dL Total Bilirubin 0.5 (0.0-1.0) mg/dL Direct Bilirubin 0.2 (0.0-0.5) mg/dL AST 33 H (5-31) U/L ALT 26 (0-31) U/L Alkaline Phosphatase 82 (39-117) U/L Troponin I High Sens 12.1 (<3.5-17.0) ng/L Total Protein 7.3 (6.5-8.0) g/dL Albumin 3.7 (3.5-5.0) g/dL Discharge Plan Discharge Clinical Impression: Leg pain Patient Disposition: Left W/O Completing Treatment Prescriptions: No Action Advair HFA 230-21 mcg/actuation HFA aerosol inhaler 2 puff inhalation BID 90 Days Qty: 36 4RF albuterol sulfate 90 mcg/actuation HFA aerosol inhaler 2 inh inhalation Q6H PRN (Reason: shortness of breath or wheezing) 90 Days Qty: 3 3RF furosemide 40 mg tablet 80 mg PO BID Qty: 360 3RF metoprolol succinate [Toprol XL] 50 mg tablet extended release 24 hr 50 mg PO BID Qty: 180 3RF levocetirizine 5 mg tablet 5 mg PO DAILY 90 Days Qty: 90 3RF prednisone 2.5 mg tablet 2.5 mg PO DAILY 90 Days Qty: 90 3RF Rx Instructions: On odd days trazodone 50 mg tablet 100 mg PO BEDTIME Qty: 180 3RF meclizine 25 mg tablet 25 mg PO Q8H PRN (Reason: dizziness) 10 Days Qty: 30 0RF rosuvastatin 10 mg tablet 10 mg PO ONCE Qty: 90 2RF potassium chloride 20 mEq tablet extended release 40 meq PO DAILY Qty: 60 3RF montelukast 10 mg tablet 10 mg PO DAILY Qty: 90 3RF warfarin [Jantoven] 2.5 mg Tablet 1.5 mg PO DAILY@1800 Patient Comments: Dose ranges based on INR goal of 1.5-2. levothyroxine [Synthroid] 25 mcg Tablet 50 mcg PO SUSA@0600 docusate sodium 100 mg Capsule 100 mg PO DAILY magnesium hydroxide [Milk of Magnesia] 400 mg/5 mL Suspension 30 ml PO NEEDED PRN (Reason: Constipation, No BM in 3 days ) fluticasone propionate 50 mcg/actuation spray,suspension 2 spray intranasal DAILY guaifenesin 400 mg Tablet 400 mg PO TID simethicone [Gas Relief (simethicone)] 80 mg Tablet,Chewable 80 mg PO QIDWMHS Qty: 20 0RF diazepam 5 mg tablet 5 mg PO BID PRN (Reason: anxiety) Qty: 14 0RF (DME) nebulizers Misc See Rx Instructions .Route Rx Instructions: As directed (DME) CPAP Machine/Device Device See Rx Instructions .Route Rx Instructions: As directed (DME) Oxygen Home Use Kit See Rx Instructions .Route Rx Instructions: As directed epinephrine 0.3 mg/0.3 mL auto-injector 0.3 mg IM USEASDIRECTD PRN (Reason: Allergic Reaction) hydroxychloroquine 200 mg tablet 200 mg PO DAILY 30 Days Qty: 30 6RF zolpidem [Ambien] 5 mg tablet 5 mg PO BEDTIME PRN (Reason: sleep) 30 Days Qty: 30 3RF mupirocin 2 % ointment 1 appl topical TID 14 Days Qty: 15 1RF Interventions: BRAEDEN Worksheet Last Done: 09/27/24 18:30 Discharge Date/Time: 09/27/24 18:31
--- NOTE | 2024-09-27 13:58 | ECG_ITS ---
Test Reason : SOB Blood Pressure : */* mmHG Vent. Rate : 82 BPM Atrial Rate : 82 BPM P-R Int : 152 ms QRS Dur : 132 ms QT Int : 396 ms P-R-T Axes : 55 -57 58 degrees QTcB Int : 462 ms Normal sinus rhythm Right bundle branch block Left anterior fascicular block Bifascicular block Left ventricular hypertrophy with repolarization abnormality ( R in aVL ) Abnormal ECG When compared with ECG of 09-Sep-2024 02:14, No significant change was found Referred By: Joann Logan Electronically Signed By: Luis Eduardo Cadet
[2024-09-27 14:31] LABS: MANUAL DIFF FLAG NO
[2024-09-27 14:32] LABS: Basophils Percent Auto 0.3 % (0-2); Eosinophils Absolute Auto 0.1 X10*3/uL (0.0-0.4); Eosinophils Percent Auto 0.7 % (0-4); Hematocrit 34.8 % (37.0-47.0); Hemoglobin 11.6 g/dl (12.0-16.0); Imm Gran Abs Auto 0.16 X10*3/uL (0.00-0.03); Imm Gran Pct Auto 1.1 % (0.0-0.4); Lymphocytes Percent Auto 6.9 % (20-40); Mean Corpuscular HGB Conc 33.3 g/dl (31.0-35.0); Mean Corpuscular Hemoglobin 33.1 pg (27.0-33.0); Mean Corpuscular Volume 99.4 fL (80.0-98.0); Mean Platelet Volume 10.6 fL (9.4-12.3); Monocytes Absolute Auto 1.2 X10*3/uL (0.1-1.2); Monocytes Percent Auto 8.8 % (2-11); Neutrophils Absolute Auto 11.5 x10*3/uL (2.0-8.3); Neutrophils Percent Auto 82.2 % (45-73); Platelet Count 234 X10*3/uL (160-400); Red Cell Distribution Width 13.8 % (11.0-16.0); White Blood Count 14.1 X10*3/uL (4.8-10.8)
[2024-09-27 14:48] LABS: INTERNATIONAL NORM RATIO 1.7 (0.9-1.1); Prothrombin Time 20.4 SEC (10.9-12.4)
[2024-09-27 14:50] LABS: Alanine Aminotransferase 26 U/L (0-31); Albumin Level 3.7 g/dL (3.5-5.0); Alkaline Phosphatase 82 U/L (39-117); Anion Gap 10 (12-20); Aspartate Amino Transferase 33 U/L (5-31); Bilirubin Direct 0.2 mg/dL (0.0-0.5); Bilirubin Total 0.5 mg/dL (0.0-1.0); Blood Urea Nitrogen 27 mg/dL (9-16); Calcium 10.1 mg/dL (8.4-10.2); Carbon Dioxide 31 mmol/L (22-29); Chloride 100 mmol/L (96-108); Creatinine Clr Calc Pharmacy 47.8; Estimated Glomerular Filt Rate > 60; Glucose Random 85 mg/dL (60-115); Magnesium 2.5 mg/dL (1.6-2.6); Potassium 3.6 mmol/L (3.3-5.1); Sodium 137 mmol/L (135-145); Total Protein 7.3 g/dL (6.5-8.0)
[2024-09-27 14:52] LABS: Troponin-I High Sensitivity 12.1 ng/L (<3.5-17.0)
== END 2024-09-27 18:31 | disposition left against medical advice (07) ==
PROVIDERS: Physician Assistant; Emergency Provider Emergency Medicine; PCP Internal Medicine
DX: S61.011A Laceration without foreign body of right thumb without damage to nail, initial encounter (principal); M79.605 Pain in left leg; R06.02 Shortness of breath; R60.0 Localized edema; R07.89 Other chest pain; W45.8XXA Other foreign body or object entering through skin, initial encounter; Y93.9 Activity, unspecified; Y92.9 Unspecified place or not applicable; Y99.8 Other external cause status; Z79.899 Other long term (current) drug therapy
CPT/HCPCS: 36415; 71046; 80048; 80076; 83735; 84484; 85025; 85610; 93005; 93971; 99283; 99284

== ENCOUNTER → 2024-09-27 13:58 | Outpatient (BNV) | payer MEDICARE, SELFPAY | PROVIDERS: PCP Internal Medicine; Visit Provider Radiology Diagnostic Radiology | DX: J90 Pleural effusion, not elsewhere classified (principal); I51.7 Cardiomegaly; M79.605 Pain in left leg | CPT/HCPCS: 71046 ==

== ENCOUNTER → 2024-09-27 13:58 | Outpatient (BNV) | payer MEDICARE, SELFPAY | PROVIDERS: Emergency Provider Emergency Medicine; PCP Internal Medicine; Visit Provider Internal Medicine Cardiovascular Disease | DX: I45.2 Bifascicular block (principal); I51.7 Cardiomegaly | CPT/HCPCS: 93010 ==

== ENCOUNTER 2024-10-04 09:17 | Outpatient (AMB) | payer MEDICARE, SELFPAY ==
[2024-10-04 09:25] VITALS: BP 110/54; PULSE 83; BMI 23.6
--- NOTE | 2024-10-04 09:25 | MHC.OFFVIS ---
Vital Signs 10/04/24 09:25 Height 5 ft 2 in Weight 129 lb 3.054 oz BMI 23.6 BP 110/54 L Blood Pressure Location Lt brachial Position Sitting Pulse 83 Pulse Source Monitor Intake Visit Reasons: f/up-SOB Intake Note: f/up/SOB/Chest pain Clinical Aide Required: No Accompanied by: Self / Same As Patient Allergies morphine Allergy (Severe, Verified 09/27/24 13:53) Itching avocado [AVOCADO] Allergy (Mild, Verified 09/27/24 13:53) ITCHY THROAT, RASH azithromycin [AZITHROMYCIN] Allergy (Mild, Verified 09/27/24 13:53) ITCHY THROAT, RASH barium iodide [BARIUM IODIDE] Allergy (Mild, Verified 09/27/24 13:53) ITCHY THROAT, RASH barium sulfate Allergy (Mild, Verified 09/27/24 13:53) Itch bee pollen [BEE STINGS] Allergy (Mild, Verified 09/27/24 13:53) ITCHY THROAT, RASH ciprofloxacin [From CIPRO] Allergy (Mild, Verified 09/27/24 13:53) ITCHY THROAT, RASH clarithromycin [From BIAXIN] Allergy (Mild, Verified 09/27/24 13:53) ITCHY THROAT, RASH diatrizoate meglumine [From GASTROGRAFIN] Allergy (Mild, Verified 09/27/24 13:53) ITCHY THROAT, RASH diatrizoate sodium [From GASTROGRAFIN] Allergy (Mild, Verified 09/27/24 13:53) ITCHY THROAT, RASH diclofenac [From VOLTAREN] Allergy (Mild, Verified 09/27/24 13:53) ITCHY THROAT, RASH erythromycin base [ERYTHROMYCIN BASE] Allergy (Mild, Verified 09/27/24 13:53) ITCHY THROAT, RASH gentamicin [GENTAMICIN] Allergy (Mild, Verified 09/27/24 13:53) ITCHY THROAT, RASH Iodinated Contrast Media [IVP DYE] Allergy (Mild, Verified 09/27/24 13:53) ITCHY THROAT, RASH levofloxacin [From LEVAQUIN] Allergy (Mild, Verified 09/27/24 13:53) ITCHY THROAT, RASH metronidazole [From FLAGYL] Allergy (Mild, Verified 09/27/24 13:53) ITCHY THROAT, RASH moxifloxacin [From AVELOX] Allergy (Mild, Verified 09/27/24 13:53) ITCHY THROAT, RASH Penicillins [PENICILLINS] Allergy (Mild, Verified 09/27/24 13:53) ITCHY THROAT, RASH shrimp [SHRIMP] Allergy (Mild, Verified 09/27/24 13:53) ITCHY THROAT, RASH Sulfa (Sulfonamide Antibiotics) [SULFA (SULFONAMIDE ANTIBIOTICS)] Allergy (Mild, Verified 09/27/24 13:53) ITCHY THROAT, RASH vancomycin [VANCOMYCIN] Allergy (Mild, Verified 09/27/24 13:53) ITCHY THROAT, RASH clindamycin Adverse Reaction (Intermediate, Verified 09/27/24 13:53) Unknown Medication List - Last Reconciled 10/04/24 by Luis Eduardo Cadet MD Advair HFA 230-21 mcg/actuation (fluticasone propion-salmeterol) 2 puffs inhalation BID 90 days NS albuterol sulfate 90 mcg/actuation 2 inhalations inhalation Q6H PRN 90 days CPAP (CPAP Machine/Device) As directed diazepam 5 mg PO BID PRN docusate sodium 100 mg PO DAILY epinephrine 0.3 mg IM USEASDIRECTD PRN fluticasone propionate 50 mcg/actuation 2 sprays intranasal DAILY furosemide 80 mg (2 x 40 mg) PO BID guaifenesin 400 mg PO TID hydroxychloroquine 200 mg PO DAILY 30 days levocetirizine 5 mg PO DAILY 90 days levothyroxine (Synthroid) 50 mcg PO SUSA@0600 magnesium hydroxide (Milk of Magnesia) 30 mL PO NEEDED PRN meclizine 25 mg PO Q8H PRN 10 days metoprolol succinate ER (Toprol XL) 50 mg PO BID montelukast 10 mg PO DAILY mupirocin 2% 1 appl topical TID 14 days nebulizers As directed Oxygen Home Use As directed potassium chloride ER 40 mEq (2 x 20 mEq) PO DAILY prednisone 2.5 mg PO DAILY 90 days rosuvastatin 10 mg PO ONCE simethicone (Gas Relief (simethicone)) 80 mg PO QIDWMHS trazodone 100 mg (2 x 50 mg) PO BEDTIME warfarin (Jantoven) 1.5 mg PO DAILY@1800 zolpidem (Ambien) 5 mg PO BEDTIME PRN 30 days HPI Comments Details: 79-year-old female complex medical issues presenting follow-up. She recently was diagnosed with severe mitral valve regurgitation was felt not to be a good surgical candidate and underwent MitraClip. She had improvement in symptoms afterwards. She has advanced lung disease due to previous lung resection as well as radiation to the lungs. She also had pulmonary embolism in the past. She has pulmonary hypertension. She is presenting now because she was becoming more short of breath and had lower extremity edema. On her own she crease her furosemide to 40 mg over the last week or so. She said her breathing did not change with that strategy. It appears early November she was in the emergency department with shortness of breath and was diagnosed with left lower lobe pneumonia. She had some sharp left-sided chest pains which were pleuritic in nature likely due to underlying pneumonia. She was given antibiotics which she has completed. She is saying that her oxygen saturations the low when she is laying down. She does not use oxygen frequently. Specifically outside her home she does not use oxygen. She has tachycardia when she is ambulating which she has noticed but does not significantly get any palpitations. She continues to get short of breath with activities. She saw a pulmonary hypertension specialist and by her description she was told that her pulmonary hypertension was mostly due to mitral regurgitation. She is following with pulmonology at [place]. 12/29/22: Was brought in for urgent follow-up. She called and was complaining of palpitations and fast heart rates as high as 120 beats per minute and was also complaining of shortness of breath. It appears she was referred for echocardiography by pulmonology and this showed that her right ventricle is [id number] dilated, right atrium was severely dilated with small pericardial effusion as before but small to moderate pleural effusion was also noted. Previous iatrogenic ASD from transseptal puncture was noted as well mitral stenosis due to mitral clip with mean gradient of 8-9 mm Hg. Previously this was 7 mm Hg. The patient was previously advised to use oxygen when she is ambulating. Apparently she was out with her friends and while walking she was not using oxygen and started feeling shortness of breath and checked her pulse and it was 120 beats per minute. She is saying when she is using oxygen she does not get similar symptoms and has not had any tachycardia while using oxygen. She has also gained few lb over the last few days. She was sent for chest x-ray which is showing left basal pleural effusion as seen on the echocardiography also. She is taking Lasix 40 mg once a day. She is on metoprolol succinate 25 mg twice a day. 01/11/23: She returns for follow-up. She had Holter monitor on her and the day she came to return it she had significant palpitations and shortness of breath while walking to the Cardiology Department. She said she was not rushing and was walking at a slow pace. She said these symptoms improved afterwards and she did not have any for the palpitations walking back to her car. She was using oxygen. She is wearing oxygen 30/01 but is saying that she feels lousy and has not felt any difference in her dyspnea or palpitations. She has been using 40 mg twice a day of Lasix. Her blood pressure control is good. Previously we did not increase her Toprol XL despite seeing some degree of mitral stenosis on her echocardiogram which is iatrogenic due to MitraClip. She has been more sedentary and is quite frail and deconditioned. She is tearful that she is unable to do any of the activities she was able to do before. 02/13/23: She returns for follow-up. She was previously on 40 mg p.o. b.i.d. Lasix. She had called our office for lower extremity edema and Lasix dose was increased to 80 mg twice a day. Subsequent to that she called or office that she is dehydrated and was advised to take 80 mg in the morning and 40 in the afternoon. She had blood workup which showed hypokalemia and she was started on potassium supplements. She continues to get fatigue and SOB. She is using oxygen when sleeping and with ambulation. Continues to get tachycardia with ambulation. 04/26/2023: She returns for follow-up. She called us yesterday because she gained 3 lb over 3 days. She was taking 40 mg p.o. b.i.d. Lasix. She was advised to take an extra dose of Lasix yesterday and increase the Lasix to 80 mg in the morning today. She said she checked her weight today and was back at 128 lb which was her baseline. She is saying she has been short of breath and fatigue. Also she had upper back pain which moved to her chest early April and she went to [facility] where she had a chest CTA performed which did not show any evidence of dissection or pulmonary embolism. Pulmonary arteries were noticed to be dilated consistent with her known history of pulmonary hypertension. 08/14/2023: She returns for follow-up. She had an episode of diverticulitis which was treated in the hospital. She said she went home and was getting some shortness of breath and wheezing and was advised to go back to the hospital and was treated for pneumonia also. She continues to have symptoms like before including chest tightness, fatigue and inability to exercise. She is on oxygen mostly at times. She complains of some edema in the lower extremity but nothing significant is noted on examination. 09/04/2023: She returns for urgent follow-up. She is complaining of shortness of breath and palpitations. She said she was tachycardic and checked her heart rate and was 100 beats per minute. She has been using oxygen most of the time. Sometimes she takes it off and if the oxygen level is dropping she wears oxygen back. During activities she has been using oxygen. Continues to get off and on chest discomfort. She had an echocardiogram done at [facility] with transmitral gradient was 7 mm Hg at a heart rate of 76 beats per minute. 10/17/23: She is here for follow-up after recent ER visit. Apparently was getting lower extremity edema and went to the emergency department where she was told that she may have congestive heart failure. No significant changes in medications were made. Her BNP was at the same level that it has been previously. She called our office and was concerned and we decided to bring her for office visit. She is saying that she was short of breath and had lower extremity edema and went to the emergency department and apparently after testing no changes in medications were made. She clearly has some peripheral edema. She also is complaining of some shortness of breath with activities. 11/20/23: She is here for follow-up. She had repeat echocardiography performed which is showing normal LV function 60-65 % without any wall motion abnormalities with elevated filling pressures, normal right ventricular systolic function with mild RV dilation, mitral clip with 8 mm pressure gradient across the mitral valve at heart rate of 88 beats per minute. [id number] pulmonary hypertension. She is complaining of fatigue and gets tired very easily. She has not been exercising and has slowed down significantly. With Lasix her volume status appears to be better but she is still complaining of off and on lower extremity edema. She is concerned about her kidneys. I have reassured her that she looks euvolemic. Also discussed with her the ECHO findings which are quite reassuring currently. 03/06/2024: She is here for follow-up. She had multiple issues since she last saw us in November. She had pneumonia followed by diverticulitis as well as a hematoma on the right lagos which was drained by surgeon. She was getting more short of breath and apparently had a chest x-ray performed which showed pleural effusions. Her Lasix dose was increased to 80 mg twice a day. She started the higher dose today. She was previously taking 80 mg and 40 mg in the morning and afternoon. Denying any other complaints. 03/25/2024: She returns for follow-up. She was recently seen for congestive heart failure episode. Her Lasix dose was increased to 80 mg twice a day. She had subsequent blood workup which showed stable kidney function. BNP improved. Clinically she has improved somewhat but continues to have some shortness of breath. She is using oxygen more frequently and appears to be calmer than before and has no obvious shortness of breath. She has been coughing and will be discussing this more with pulmonology. 06/24/2024: She is here for follow-up. She is denying any chest pains. She is saying her breathing is stable. She is using supplemental oxygen. She is using BiPAP at night for few hours but apparently was noticed to be snoring while wearing BiPAP and is in the process of getting repeat sleep study. No significant complaints on follow-up. 10/04/2024: She is here for follow-up. She has noticed some swelling at the left ankle. She is saying her breathing is stable but whenever she tries to walk she gets out of breath and gets chest tightness. She noticed her oxygen level has dropped when she exercises. He has a consistent thing for her. She has known pulmonary hypertension which was a mixed due to heart disease as well as pulmonary disease. Taking medications regularly. We discussed about spironolactone in the past but she did not agree to it due to side effect profile. I have advised her to reconsider that because it may help her with the extra fluid and also may help improve her potassium which has been low and she is taking supplements. [facility] Medical History Chronic hypercapnic respiratory failure KANDY treated with BiPAP COPD (chronic obstructive pulmonary disease) Open wound Warfarin anticoagulation Complex sleep apnea syndrome Leg pain Anemia Tachycardia DVT (deep venous thrombosis) Compression fracture of body of thoracic vertebra ASD (atrial septal defect) Pleuritic chest pain History of COVID-19 Chronic anticoagulation Hypothyroidism GERD (gastroesophageal reflux disease) Hyperlipidemia Hypertension Factor 5 Leiden mutation, heterozygous History of non-ST elevation myocardial infarction (NSTEMI) Hypoxia Anxiety PTSD (post-traumatic stress disorder) Hemoptysis Dyspnea Tracheobronchitis CLARA positive Diverticulitis Allergic bronchitis (HFpEF) heart failure with preserved ejection fraction Subarachnoid bleed Insomnia Anti-phospholipid antibody syndrome Hypogammaglobulinemia Chronic respiratory failure Arterial insufficiency of lower extremity Complex regional pain syndrome i of right lower limb Post herpetic neuralgia Pulmonary hypertension Pericardial effusion Pulmonary emboli Pleural effusion Radiation fibrosis of lung Pneumonitis Pulmonary nodules Lung cancer Surgical History History of colonoscopy History of lung surgery History of tonsillectomy History of hysterectomy S/P mitral valve clip implantation History of cardiac cath Family History Sister No problems noted. Mother Cardiovascular disease Daughter Tachycardia Other KANDY (obstructive sleep apnea) Social History Household Members: Other Housing: Shelter Do you presently have visiting nurse or other home services: Yes (at home had [employer] that came to visit her) Unable to assess alcohol history related to: Unknown Alcohol intake: former Comment: stand by assist with ambulation Patient Tobacco Use Status: Never used Tobacco Second Hand Smoke Exposure: No Advance Directives Date on File: 06/15/22 service: No Current occupational status: retired Review of Systems Const Denies chills, Denies fatigue, Denies fever(s), Denies frequent falls, Denies weakness, Denies weight gain and Denies weight loss ENT Reports dizziness Card Reports chest pain, Reports chest pain at rest, Reports chest pain with activity, Denies leg edema, Reports lightheadedness, Denies palpitations, Reports dyspnea and Reports dyspnea on exertion Resp Denies cough, Reports dyspnea and Reports dyspnea on exertion GI Denies hematochezia Musc Denies abnormal gait, Denies muscle weakness, Denies numbness, Denies radiating pain into limb and Denies tingling Neuro Denies abnormal gait, Reports dizziness, Denies frequent falls, Denies numbness, Denies tingling and Denies weakness Endo Denies fatigue and Denies palpitations Physical Exam Vital Signs: Last Vital Signs Pulse 83 10/04/24 09:25 BP 110/54 L 10/04/24 09:25 BMI result Body Mass Index 23.6 GENERAL APPEARANCE: In no distress. NECK/THYROID: no carotid bruit, no JVD. SKIN: no suspicious lesions, warm and dry. HEART: no murmurs, regular rate and rhythm, S1, S2 normal. LUNGS: clear to auscultation bilaterally. ABDOMEN: normal, bowel sounds present, soft, nontender, nondistended. EXTREMITIES: no clubbing, cyanosis. Mild edema left ankle. PERIPHERAL PULSES: equal. NEUROLOGIC: nonfocal, alert and oriented. Office Procedures EKG Details: Sinus rhythm 83 beats per minute, right bundle-branch block, left anterior fascicular block, QTC 491 milliseconds. [id number], Complete Assessment & Plan Assessment & Plan (1) Pulmonary hypertension: Comment: severe based on RHC, moderate based on recent echo Code(s): I27.20 - Pulmonary hypertension, unspecified Category: Medical (2) (HFpEF) heart failure with preserved ejection fraction: Code(s): I50.30 - Unspecified diastolic (congestive) heart failure Category: Medical Qualifiers: Heart failure chronicity: chronic Qualified Code(s): I50.32 - Chronic diastolic (congestive) heart failure Plan [age] female with complex medical issues who is here for follow-up. She has dyspnea on exertion, hypoxia and chest pains with activity. It is possible that she is going to require more oxygen than before. This can be discussed with the laundry tub maker Dr. Kelly. Overall volume status appears to be good. She is taking 80 mg p.o. b.i.d. Lasix. In terms of further medications I have advised her to think about spironolactone. If she agrees we will prescribe it and get her off the potassium supplements in that case. We will repeat echocardiography because it has been awhile we checked the pulmonary artery pressures and right ventricular function. Multiple concerns about different issues which were addressed. Thank you for allowing me to participate in the care of your patient. Please feel free to contact me if you have any questions. Orders: Orders CA echo transthorac w con Today I50.32 - Chronic diastolic (congestive) heart failure Coding Level of Care Code Est Pt Level 5 (71898) Complex EM visit Add On G2211 Diagnoses Pulmonary hypertension I27.20 Chronic heart failure with preserved ejection fraction I50.32 Heart failure chronicity: chronic CPT Codes EKG - CPT: 09909-[id number], Complete ([id number])
== END 2024-10-04 10:04 | disposition home or self-care (01) ==
LOC: HO.HCS 09:17
PROVIDERS: PCP Internal Medicine; Visit Provider Internal Medicine Cardiovascular Disease
DX: I27.20 Pulmonary hypertension, unspecified (principal); I50.32 Chronic diastolic (congestive) heart failure; I45.2 Bifascicular block
CPT/HCPCS: 93010; 99214; G2211

== ENCOUNTER → 2024-10-04 09:17 | Outpatient (BNVA) | payer MEDICARE, SELFPAY | PROVIDERS: PCP Internal Medicine; Visit Provider Internal Medicine Cardiovascular Disease | DX: I27.20 Pulmonary hypertension, unspecified (principal); I50.32 Chronic diastolic (congestive) heart failure | CPT/HCPCS: 93005; 99212 ==

== ENCOUNTER 2024-10-17 15:31 | Emergency (ER) | payer MEDICARE, SELFPAY ==
--- NOTE | ~2024-10-17 | XR_ITS ---
CLINICAL HISTORY: chest pressure 1 view chest x-ray Comparison: CR - XR CHEST 1V - 09/09/24 01:42 EST Findings: Stable left-sided volume loss with pleural-parenchymal scarring in the mid to lower left hemithorax. No definite superimposed acute airspace disease or significant pleural effusion. No pneumothorax. Stable cardiomediastinal silhouette. Redemonstration of a metallic density projecting over the left heart. Thoracic spondylosis with mild kyphoscoliosis. IMPRESSION: Postsurgical changes in the left hemithorax with no definite superimposed acute process. This document has been electronically signed by: Laxmi Asif DO on 10/17/2024 19:04:35
--- NOTE | 2024-10-17 15:38 | ECG_ITS ---
Test Reason : CHEST PRESSURE Blood Pressure : */* mmHG Vent. Rate : 96 BPM Atrial Rate : 96 BPM P-R Int : 170 ms QRS Dur : 160 ms QT Int : 386 ms P-R-T Axes : 69 -61 61 degrees QTcB Int : 487 ms Normal sinus rhythm Possible Left atrial enlargement Right bundle branch block Left anterior fascicular block Bifascicular block Minimal voltage criteria for LVH, may be normal variant ( R in aVL ) Abnormal ECG When compared to the previous EKG of No significant changes seen Referred By: Generic ED Physician Electronically Signed By: Luis Eduardo Cadet
[2024-10-17 15:43] VITALS: BP 139/55; BP 146/73; PULSE 108; PULSE 98; RESP 20; TEMP 37; O2SAT 97; O2SAT 98; BMI 23.4
--- NOTE | 2024-10-17 15:56 | ED_ITS ---
HPI - Chest Pain General Chief Complaint: Chest Pain Stated Complaint: chest pressure Time Seen by Provider: 10/17/24 15:56 Source: patient Mode of arrival: ambulatory Limitations: no limitations History of Present Illness ED Provider: Orlin Rosado DO HPI narrative: 79-year-old female with past medical history of sleep apnea on BiPAP, COPD, diastolic heart failure, CRPS, PE and DVT on warfarin, hypertension, hyperlipidemia, factor 5 Leiden, antiphospholipid syndrome presents to the ED for chest pain that started shortly prior to arrival while she was driving to an appointment. Patient states she has had an increased weight gain of 3 lb over the last few days as well as increased swelling in her legs. She also reports mild difficulty breathing compared to baseline with exertion. She had a high salty meal recently. She describes her chest discomfort as a tightness spanning across the bottom of her chest on both sides and it is without nausea, vomiting, abdominal pain, diarrhea or any mitigating or exacerbating factors including ambulation. She also reports a chronic cough, nonproductive and occasionally with white sputum with no significant changes recently. She on 80 mg of furosemide b.i.d. for her CHF and has not missed any recent doses. Related Data Home Medications ?Medication ?Instructions ?Recorded ?Confirmed CPAP (CPAP Machine/Device) 06/30/22 10/04/24 Oxygen Home Use 06/30/22 10/04/24 nebulizers 06/30/22 10/04/24 epinephrine 0.3 mg/0.3 mL 0.3 mg IM USEASDIRECTD PRN 07/14/22 10/04/24 injection, auto-injector Allergic Reaction levothyroxine 25 mcg tablet 50 mcg PO SUSA@0600 01/05/24 10/04/24 (Synthroid) warfarin 2.5 mg tablet (Jantoven) 1.5 mg PO DAILY@1800 01/05/24 10/04/24 docusate sodium 100 mg capsule 100 mg PO DAILY 01/14/24 10/04/24 fluticasone propionate 50 2 spray intranasal DAILY 02/01/24 10/04/24 mcg/actuation nasal spray,suspension guaifenesin 400 mg tablet 400 mg PO TID 02/01/24 10/04/24 magnesium hydroxide 400 mg/5 mL 30 ml PO NEEDED PRN 02/01/24 10/04/24 oral suspension (Milk of Magnesia) Constipation, No BM in 3 days Previous Rx's ?Medication ?Instructions ?Recorded diazepam 5 mg tablet 5 mg PO BID PRN anxiety #14 tabs 02/04/24 simethicone 80 mg chewable tablet 80 mg PO QIDWMHS #20 tabs 02/04/24 (Gas Relief (simethicone)) Advair HFA 230 mcg-21 2 puff inhalation BID 90 days #36 03/13/24 mcg/actuation aerosol inhaler grams (fluticasone propion-salmeterol) albuterol sulfate 90 mcg/actuation 2 inh inhalation Q6H PRN shortness 04/01/24 aerosol inhaler of breath or wheezing 90 days #3 ea furosemide 40 mg tablet 80 mg (2 x 40 mg) PO BID #360 tabs 05/01/24 metoprolol succinate 50 mg 50 mg PO BID #180 tabs 05/10/24 tablet,extended release 24 hr (Toprol XL) levocetirizine 5 mg tablet 5 mg PO DAILY 90 days #90 tabs 05/23/24 prednisone 2.5 mg tablet 2.5 mg PO DAILY 90 days #90 tabs 07/01/24 trazodone 50 mg tablet 100 mg (2 x 50 mg) PO BEDTIME #180 07/01/24 tabs meclizine 25 mg tablet 25 mg PO Q8H PRN dizziness 10 days 07/22/24 #30 tabs rosuvastatin 10 mg tablet 10 mg PO ONCE #90 tabs 08/02/24 potassium chloride 20 mEq 40 meq (2 x 20 mEq) PO DAILY #60 08/12/24 tablet,extended release tabs montelukast 10 mg tablet 10 mg PO DAILY #90 tabs 08/24/24 hydroxychloroquine 200 mg tablet 200 mg PO DAILY 30 days #30 tabs 09/11/24 mupirocin 2 % topical ointment 1 appl topical TID 14 days #15 09/11/24 grams zolpidem 5 mg tablet (Ambien) 5 mg PO BEDTIME PRN sleep 30 days 09/11/24 #30 tabs doxycycline monohydrate 100 mg 100 mg PO BID #14 tabs 10/12/24 tablet Allergies Allergy/AdvReac Type Severity Reaction Status Date / Time morphine Allergy Severe Itching Verified 10/17/24 15:45 avocado [AVOCADO] Allergy Mild ITCHY Verified 10/17/24 15:45 THROAT, RASH azithromycin [AZITHROMYCIN] Allergy Mild ITCHY Verified 10/17/24 15:45 THROAT, RASH barium iodide [BARIUM IODIDE] Allergy Mild ITCHY Verified 10/17/24 15:45 THROAT, RASH barium sulfate Allergy Mild Itch Verified 10/17/24 15:45 bee pollen [BEE STINGS] Allergy Mild ITCHY Verified 10/17/24 15:45 THROAT, RASH ciprofloxacin [From CIPRO] Allergy Mild ITCHY Verified 10/17/24 15:45 THROAT, RASH clarithromycin [From BIAXIN] Allergy Mild ITCHY Verified 10/17/24 15:45 THROAT, RASH diatrizoate meglumine Allergy Mild ITCHY Verified 10/17/24 15:45 [From GASTROGRAFIN] THROAT, RASH diatrizoate sodium Allergy Mild ITCHY Verified 10/17/24 15:45 [From GASTROGRAFIN] THROAT, RASH diclofenac [From VOLTAREN] Allergy Mild ITCHY Verified 10/17/24 15:45 THROAT, RASH erythromycin base Allergy Mild ITCHY Verified 10/17/24 15:45 [ERYTHROMYCIN BASE] THROAT, RASH gentamicin [GENTAMICIN] Allergy Mild ITCHY Verified 10/17/24 15:45 THROAT, RASH Iodinated Contrast Media Allergy Mild ITCHY Verified 10/17/24 15:45 [IVP DYE] THROAT, RASH levofloxacin [From LEVAQUIN] Allergy Mild ITCHY Verified 10/17/24 15:45 THROAT, RASH metronidazole [From FLAGYL] Allergy Mild ITCHY Verified 10/17/24 15:45 THROAT, RASH moxifloxacin [From AVELOX] Allergy Mild ITCHY Verified 10/17/24 15:45 THROAT, RASH Penicillins [PENICILLINS] Allergy Mild ITCHY Verified 10/17/24 15:45 THROAT, RASH shrimp [SHRIMP] Allergy Mild ITCHY Verified 10/17/24 15:45 THROAT, RASH Sulfa (Sulfonamide Allergy Mild ITCHY Verified 10/17/24 15:45 Antibiotics) THROAT, [SULFA (SULFONAMIDE RASH ANTIBIOTICS)] vancomycin [VANCOMYCIN] Allergy Mild ITCHY Verified 10/17/24 15:45 THROAT, RASH clindamycin AdvReac Intermediate Unknown Verified 10/17/24 15:45 Review of Systems 2 Review of Systems: Yes all other systems are reviewed and are negative PMFSH Past Medical History Medical History Chronic hypercapnic respiratory failure KANDY treated with BiPAP COPD (chronic obstructive pulmonary disease) Open wound Warfarin anticoagulation Complex sleep apnea syndrome Leg pain Anemia Tachycardia DVT (deep venous thrombosis) Compression fracture of body of thoracic vertebra ASD (atrial septal defect) Pleuritic chest pain History of COVID-19 Chronic anticoagulation Hypothyroidism GERD (gastroesophageal reflux disease) Hyperlipidemia Hypertension Factor 5 Leiden mutation, heterozygous History of non-ST elevation myocardial infarction (NSTEMI) Hypoxia Anxiety PTSD (post-traumatic stress disorder) Hemoptysis Dyspnea Tracheobronchitis CLARA positive Diverticulitis Allergic bronchitis (HFpEF) heart failure with preserved ejection fraction Subarachnoid bleed Insomnia Anti-phospholipid antibody syndrome Hypogammaglobulinemia Chronic respiratory failure Arterial insufficiency of lower extremity Complex regional pain syndrome i of right lower limb Post herpetic neuralgia Pulmonary hypertension Pericardial effusion Pulmonary emboli Pleural effusion Radiation fibrosis of lung Pneumonitis Pulmonary nodules Lung cancer Surgical History History of colonoscopy History of lung surgery History of tonsillectomy History of hysterectomy S/P mitral valve clip implantation History of cardiac cath Family History Family History Sister No problems noted. Mother Cardiovascular disease Daughter Tachycardia Other KANDY (obstructive sleep apnea) Social History Social History Household Members: Other Housing: Care Home Do you presently have visiting nurse or other home services: Yes (at home had [employer] that came to visit her) Unable to assess alcohol history related to: Unknown Alcohol intake: former Comment: stand by assist with ambulation Patient Tobacco Use Status: Never used Tobacco Smoked in Last 30 Days: No Second Hand Smoke Exposure: No Use of substances other than those prescribed or required for medical reasons: No Advance Directives: Yes Advance Directives on File: Yes Advance Directives Date on File: 06/15/22 service: No Current occupational status: retired Physical Exam 2 Vital Signs: Vital Signs: Last Vital Signs Temp 98.1 F 10/17/24 19:21 Pulse 70 10/17/24 19:21 Resp 16 10/17/24 19:21 BP 123/67 10/17/24 19:21 Pulse Ox 98 10/17/24 19:21 O2 Del Method Nasal Cannula 10/17/24 19:21 O2 Flow Rate 2 10/17/24 19:21 Oxygen Flow Rate 2 10/17/24 15:43 BMI result Body Mass Index 23.4 Constitutional: ?Alert, oriented, speaking in full sentences HEENT: ?Normocephalic, atraumatic. ?Moist mucous membranes Eyes: ?PERRL, EOMI Neck: ?Supple, nontender Chest: ?No chest wall tenderness Respiratory: ?Lungs clear to auscultation without inspiratory crackles on multiple checks, no increased work of breathing Cardio: ?Regular rate and rhythm, no murmur, 2+ radial and DP pulses symmetrically, 1+ pitting edema of the bilateral lower extremities, elevated JVD GI: ?Soft, nondistended, nontender Back: ?Normal range of motion, nontender Skin: ?No rash, no lesions Neuro: ?Alert and oriented to person, place and time, moves all 4 extremities, no focal deficits Extremities: ?No swelling or tenderness, full range of motion Psych: ?Calm, alert and cooperative, appropriate behavior Medical Decision Making Medical Decision Making MDM Narrative: 79-year-old female presenting with chest pain. She states it is mild and does not want analgesics. After a short period of time she is re-evaluated and the chest pain completely resolved. She has been able to ambulate multiple times during her stay as well as several steps to the bathroom without any difficulty or recurrent chest pain or pressure. There was consideration for CHF exacerbation although her lungs sound clear and chest x-ray per my independent interpretation shows no changes and no pulmonary edema. There is no evidence of COPD exacerbation. I do not suspect aortic dissection. The patient is well- appearing and vitally stable. Labs show a mild nonspecific leukocytosis which appears baseline, mild elevation of troponin to 14.5 with previous a few weeks ago of 12.1, otherwise no acute abnormalities. Although 2nd troponin increases to 20.9, this is within the normal range and the patient is asymptomatic. I discussed these symptoms with her and she has no further concerns. She has an equivocal BNP which appears similar to prior and does not require IV diuresis at this time. She has not had any hypoxia or increased work of breathing with walking. Her INR is therapeutic at 2.0. At this time, although it is uncertain as to the etiology of her chest discomfort, the patient feels very comfortable with plan to return to home and has been provided clear and strict return precautions. Admission/Observation Consideration of admission/observation: Escalation of care including admission/observation considered Lab Data 10/17/24 16:42 10/17/24 16:42 Labs: Lab Results 10/17/24 10/17/24 Range/Units 16:42 18:21 WBC 11.7 H (4.8-10.8) X10*3/uL RBC 3.47 L (4.20-5.50) X10*6/uL Hgb 11.5 L (12.0-16.0) g/dl Hct 34.7 L (37.0-47.0) % MCV 100.0 H (80.0-98.0) fL MCH 33.1 H (27.0-33.0) pg MCHC 33.1 (31.0-35.0) g/dl RDW 13.7 (11.0-16.0) % Plt Count 225 (160-400) X10*3/uL MPV 10.9 (9.4-12.3) fL Immature Gran % (Auto) 1.4 H (0.0-0.4) % Neut % (Auto) 80.8 H (45-73) % Lymph % (Auto) 7.4 L (20-40) % [place] % (Auto) 9.6 (2-11) % Eos % (Auto) 0.3 (0-4) % Baso % (Auto) 0.5 (0-2) % Lymph # (Auto) 0.9 L (1.2-4.9) X10*3/uL [place] # (Auto) 1.1 (0.1-1.2) X10*3/uL Eos # (Auto) 0.0 (0.0-0.4) X10*3/uL Baso # (Auto) 0.1 (0.0-0.2) X10*3/uL Abs Immat Gran (auto) 0.17 H (0.00-0.03) X10*3/uL Absolute Neuts (auto) 9.5 H (2.0-8.3) x10*3/uL Absolute Nucleated RBC 0.000 (0.0-0.012) X10*3/uL Nucleated RBC % (auto) 0.0 (0.0-0.2) /100WBC PT 23.8 H (10.9-12.4) SEC INR 2.0 H (0.9-1.1) Sodium 142 (135-145) mmol/L Potassium 3.5 (3.3-5.1) mmol/L Chloride 100 (96-108) mmol/L Carbon Dioxide 32 H (22-29) mmol/L Anion Gap 14 (12-20) BUN 25 H (9-16) mg/dL Creatinine 0.74 (0.5-1.4) mg/dL Estim Creat Clear Calc 47.1 Estimated GFR > 60 Random Glucose 99 (60-115) mg/dL Calcium 10.4 H (8.4-10.2) mg/dL Total Bilirubin 0.4 (0.0-1.0) mg/dL AST 36 H (5-31) U/L ALT 29 (0-31) U/L Alkaline Phosphatase 75 (39-117) U/L Troponin I High Sens 14.5 20.9 H (<3.5-17.0) ng/L B-Natriuretic Peptide 644 H (<100) pg/mL Total Protein 6.7 (6.5-8.0) g/dL Albumin 3.7 (3.5-5.0) g/dL Independent Interpretation I performed an independent interpretation of an: EKG Interpretation: Normal sinus rhythm at 96 beats per minute, left anterior fascicular block with right bundle branch block, no diagnostic ST wave abnormalities, borderline prolonged QTC, compared to prior dated 09/27/2024, these appear nearly identical. Discharge Plan Discharge Clinical Impression: Chest pain Qualifiers: Chest pain type: unspecified Qualified Code(s): R07.9 - Chest pain, unspecified Patient Disposition: Home, Self-Care Instructions: Chest Pain (ED) Additional Instructions: You have been evaluated in the emergency department for chest pain today.? The workup showed a mild increase in troponin from 14.5-20.9. Slightly elevated at 644. Your chest x-ray showed no signs of increased fluid. You were able to walk to the bathroom without difficulty and your chest pain resolved. Your INR was 2.0. Although it was determined that there was not an immediately life threatening cause for your chest pain, it is very important that you follow up with your primary care physician.? Further cardiac (heart) testing may be recommended. Please be aware that if your condition changes or worsens in any way while you are at home, you should return to the emergency department immediately for further care.? This is especially true for worsening / recurrent pain, shortness of breath, vomiting, sweating, palpitations, lightheadedness or passing out.? These may be signs of an emergency condition and you should call 911 if these symptoms occur. Prescriptions: No Action Advair HFA 230-21 mcg/actuation HFA aerosol inhaler 2 puff inhalation BID 90 Days Qty: 36 4RF albuterol sulfate 90 mcg/actuation HFA aerosol inhaler 2 inh inhalation Q6H PRN (Reason: shortness of breath or wheezing) 90 Days Qty: 3 3RF furosemide 40 mg tablet 80 mg PO BID Qty: 360 3RF metoprolol succinate [Toprol XL] 50 mg tablet extended release 24 hr 50 mg PO BID Qty: 180 3RF levocetirizine 5 mg tablet 5 mg PO DAILY 90 Days Qty: 90 3RF prednisone 2.5 mg tablet 2.5 mg PO DAILY 90 Days Qty: 90 3RF Rx Instructions: On odd days trazodone 50 mg tablet 100 mg PO BEDTIME Qty: 180 3RF meclizine 25 mg tablet 25 mg PO Q8H PRN (Reason: dizziness) 10 Days Qty: 30 0RF rosuvastatin 10 mg tablet 10 mg PO ONCE Qty: 90 2RF potassium chloride 20 mEq tablet extended release 40 meq PO DAILY Qty: 60 3RF montelukast 10 mg tablet 10 mg PO DAILY Qty: 90 3RF doxycycline monohydrate 100 mg tablet 100 mg PO BID Qty: 14 0RF warfarin [Jantoven] 2.5 mg Tablet 1.5 mg PO DAILY@1800 Patient Comments: Dose ranges based on INR goal of 1.5-2. levothyroxine [Synthroid] 25 mcg Tablet 50 mcg PO SUSA@0600 docusate sodium 100 mg Capsule 100 mg PO DAILY magnesium hydroxide [Milk of Magnesia] 400 mg/5 mL Suspension 30 ml PO NEEDED PRN (Reason: Constipation, No BM in 3 days ) fluticasone propionate 50 mcg/actuation spray,suspension 2 spray intranasal DAILY guaifenesin 400 mg Tablet 400 mg PO TID simethicone [Gas Relief (simethicone)] 80 mg Tablet,Chewable 80 mg PO QIDWMHS Qty: 20 0RF diazepam 5 mg tablet 5 mg PO BID PRN (Reason: anxiety) Qty: 14 0RF (DME) nebulizers Misc See Rx Instructions .Route Rx Instructions: As directed (DME) CPAP Machine/Device Device See Rx Instructions .Route Rx Instructions: As directed (DME) Oxygen Home Use Kit See Rx Instructions .Route Rx Instructions: As directed epinephrine 0.3 mg/0.3 mL auto-injector 0.3 mg IM USEASDIRECTD PRN (Reason: Allergic Reaction) hydroxychloroquine 200 mg tablet 200 mg PO DAILY 30 Days Qty: 30 6RF zolpidem [Ambien] 5 mg tablet 5 mg PO BEDTIME PRN (Reason: sleep) 30 Days Qty: 30 3RF mupirocin 2 % ointment 1 appl topical TID 14 Days Qty: 15 1RF Print Language: Japanese
[2024-10-17 16:46] LABS: Basophils Absolute Auto 0.1 X10*3/uL (0.0-0.2); Basophils Percent Auto 0.5 % (0-2); Eosinophils Percent Auto 0.3 % (0-4); Hematocrit 34.7 % (37.0-47.0); Hemoglobin 11.5 g/dl (12.0-16.0); Imm Gran Abs Auto 0.17 X10*3/uL (0.00-0.03); Imm Gran Pct Auto 1.4 % (0.0-0.4); Lymphocytes Absolute Auto 0.9 X10*3/uL (1.2-4.9); Lymphocytes Percent Auto 7.4 % (20-40); MANUAL DIFF FLAG NO; Mean Corpuscular HGB Conc 33.1 g/dl (31.0-35.0); Mean Corpuscular Hemoglobin 33.1 pg (27.0-33.0); Mean Platelet Volume 10.9 fL (9.4-12.3); Monocytes Absolute Auto 1.1 X10*3/uL (0.1-1.2); Monocytes Percent Auto 9.6 % (2-11); Neutrophils Absolute Auto 9.5 x10*3/uL (2.0-8.3); Neutrophils Percent Auto 80.8 % (45-73); Platelet Count 225 X10*3/uL (160-400); Red Blood Count 3.47 X10*6/uL (4.20-5.50); Red Cell Distribution Width 13.7 % (11.0-16.0); White Blood Count 11.7 X10*3/uL (4.8-10.8)
[2024-10-17 17:06] LABS: Alanine Aminotransferase 29 U/L (0-31); Albumin Level 3.7 g/dL (3.5-5.0); Alkaline Phosphatase 75 U/L (39-117); Anion Gap 14 (12-20); Aspartate Amino Transferase 36 U/L (5-31); Bilirubin Total 0.4 mg/dL (0.0-1.0); Blood Urea Nitrogen 25 mg/dL (9-16); Calcium 10.4 mg/dL (8.4-10.2); Carbon Dioxide 32 mmol/L (22-29); Chloride 100 mmol/L (96-108); Creatinine Clr Calc Pharmacy 47.1; Estimated Glomerular Filt Rate > 60; Glucose Random 99 mg/dL (60-115); Potassium 3.5 mmol/L (3.3-5.1); Sodium 142 mmol/L (135-145); Total Protein 6.7 g/dL (6.5-8.0)
[2024-10-17 17:14] LABS: Troponin-I High Sensitivity 14.5 ng/L (<3.5-17.0)
--- OUTSIDE RECORDS SUMMARY | 2024-10-17 18:08 | XMS_ITS | Encounter Summary ---
Author Organization [facility] and [facility] Address [address] [place] [phone] Care Team Providers Care Exercise Physiologist Name Role Phone Caitlyn Bowie MD Primary Care Provider [phone]- [phone] Encounter Details Date Type Department Care Team (Late st Contact Info) Description 02/02/2017 Scanned Document [facility] Health Information Management [address] [place] [id number] External, Provider Social History Tobacco Use Types [...] Care Team (Late st Contact Info) Description 10/18/2024 10:30 AM EDT Office Visit [facility] [address] [place] [phone] Alfredo Michaud Jr., EMELIA [address] [place] [address] [place] [address] 10/31/2024 1:00 PM EDT Office Visit Hematology Program at [address] [place] [address] Ronald Mills MD [address] [facility] [address] [place] [address] documented as of this encounter Visit Diagnoses Not on filedocumented in this encounter Additional Health Concerns Infection Onset Date Last Indicated Resolved Time COVID-19 03/05/2022 03/05/2022 03/15/2022 7:18 PM EDT documented as of this encounter Care Teams Exercise Physiologist Relationship Specialty Start Date End Date Caitlyn Bowie MD [address] [facility] [address] [place] [address] PCP - General Internal Medicine 05/06/21 Henry Kelly MD Pulmonary Department [address] [place] [address], [address] [place] [address] Physician Pulmonary Disease 09/06/17 06/22/20 documented as of this encounter
--- OUTSIDE RECORDS SUMMARY | 2024-10-17 18:08 | XMS_ITS | Encounter Summary ---
Author Organization [facility] and [facility] Address [address] [place] [phone] Care Team Providers Care Senior Quality Manager Name Role Phone Caitlyn Bowie MD Primary Care Provider [phone]- [phone] Encounter Details Date Type Department Care Team (Late st Contact Info) Description 09/16/2020 Scanned Document [facility] Health Information Management [address] [place] [id number] External, Provider Social History Tobacco Use Types [...] Description 10/18/2024 10:30 AM EDT Office Visit [facility] [address] [place] [phone] Alfredo Michaud Jr., PA [address] [place] [address] [place] [address] 10/31/2024 1:00 PM EDT Office Visit [facility] at [address] [facility] [place] [address] Ronald Mills MD [address] [facility] [address] [place] [address] documented as of this encounter [...] as of this encounter Care Teams Senior Quality Manager Relationship Specialty Start Date End Date Caitlyn Bowie MD [address] [address] PCP - General Internal Medicine 05/06/21 documented as of this encounter
--- OUTSIDE RECORDS SUMMARY | 2024-10-17 18:08 | XMS_ITS | Encounter Summary ---
Author Organization [facility] and [facility] Address [address] [place] [phone] Care Team Providers Care Refrigerating Oiler Name Role Phone Caitlyn Bowie MD Primary Care Provider [phone]- [phone] Encounter Details Date Type Department Care Team (Late st Contact Info) Description 09/15/2020 Scanned Document [facility] at [address] [phone] External, Provider Social History Tobacco Use Types [...] Description 10/18/2024 10:30 AM EDT Office Visit [facility] [address] [place] [phone] Alfredo Michaud Jr., PA [address] [place] [address] [place] [address] 10/31/2024 1:00 PM EDT Office Visit Hematology Program at [address] [facility] [place] [facility] [place] [address] Ronald Mills MD [address] [facility] [address] [place] [address] documented as of this encounter [...] documented as of this encounter Care Teams Refrigerating Oiler Relationship Specialty Start Date End Date Caitlyn Bowie MD [address] [address] PCP - General Internal Medicine 05/06/21 documented as of this encounter
--- OUTSIDE RECORDS SUMMARY | 2024-10-17 18:08 | XMS_ITS | Encounter Summary ---
Author Organization [facility] Address [address] [place] [address] Care Team Providers Care Sharples Machine Operator Name Role Phone Sharon Vides Primary Care Provider Unava ilable Brennan Burnett MD Primary Care Provider Unavailab Hayden Montes MD Unavailable [phone] Pallavi Flood NP Unavailable [phone]- [phone] Caitlyn Bowie MD Primary Care Provider Unava ilable Reason for Visit * Reason Onset Date Comments refill request 08/08/2018 Encounter Details Date Type Department Care Team Description 08/08/2018 Refill Pulmonology - [address] [place] [address] Henry Kelly MD refill request [...] NO Patients current insurance carrier is: Payor: MEDICARE-[employer] ([employer]) / [place] / Product Type: MEDICARE [id number] documented in this encounter Plan of Treatment Not on file documented as of this encounter Visit Diagnoses Not on filedocumented in this encounter Care Teams Sharples Machine Operator Relationship Specialty Start Date End Date Sharon Vides PCP - General Internal Medicine 08/02/18 05/26/20 Brennan Burnett MD PCP - General Internal Medicine 05/27/20 12/07/21 Caitlyn Bowie MD [address] [place] [address] PCP - General Internal Medicine 12/08/21 Hayden Shah MD [address] [place] [address] Specialist Cardiovascular Disease 09/01/20 Pallavi Flood NP [address] [place] [address] Cardiology 09/01/20 documented as of this encounter
--- OUTSIDE RECORDS SUMMARY | 2024-10-17 18:08 | XMS_ITS | Encounter Summary ---
Author Organization [facility] Address [address] [place] [phone] Care Team Providers Care Gas Inspector Name Role Phone Caitlyn Bowie MD Primary Care Provider [phone]- [phone] Encounter Details Date Type Department Care Team (Late Contact Info) Description 09/17/2020 Scanned Document [facility] Health Information Management [address] [place] [phone] External, Provider Social History Tobacco Use Types [...] Description 10/18/2024 10:30 AM EDT Office Visit [facility] [address] [place] [phone] Alfredo Michaud Jr., PA [address] [place] [address] [place] [address] 10/31/2024 1:00 PM EDT Office Visit [facility] at [address] [facility] [place] [address] Ronald Mills MD [address] [facility] [address] [place] [address] documented as of this encounter [...] as of this encounter Care Teams Gas Inspector Relationship Specialty Start Date End Date Caitlyn Bowie MD [address] [address] PCP - General Internal Medicine 05/06/21 documented as of this encounter
--- OUTSIDE RECORDS SUMMARY | 2024-10-17 18:08 | XMS_ITS | Encounter Summary ---
Author Organization [facility] and [facility] Address [address] [place] [address] Care Team Providers Care Senior Scientist Name Role Phone Caitlyn Bowie MD Primary Care Provider +1- [phone] Encounter Details Date Type Department Care Team (Late Contact Info) Description 09/15/2020 Scanned Document [facility] Health Information Management [address] [place] [address] External, Provider Social History Tobacco Use Types [...] Description 10/18/2024 10:30 AM EDT Office Visit [facility] [address] [place] [address] Alfredo Michaud Jr., PA [address] [place] [address] [place] [address] 10/31/2024 1:00 PM EDT Office Visit [facility] at [address] - [address] [facility] [place] [address] Ronald Mills MD 240 [facility] [address] [place] [address] documented as of this encounter [...] as of this encounter Care Teams Senior Scientist Relationship Specialty Start Date End Date Caitlyn Bowie MD [address] [address] PCP - General Internal Medicine 05/06/21 documented as of this encounter
--- OUTSIDE RECORDS SUMMARY | 2024-10-17 18:08 | XMS_ITS | Encounter Summary ---
Author Organization [facility] Address [address] [place] [address] Care Team Providers Care Purchasing Supervisor Name Role Phone Victorino Martin MD Primary Care Provider UnavailSharon Kimbrough Primary Care Provider Unava ilable Brennan Burnett MD Primary Care Provider Unavailab Hayden Montes MD Unavailable [phone] Pallavi Flood NP Unavailable [phone]- [phone] Caitlyn Bowie MD Primary Care Provider Unava ilable Reason for Visit * Reason Onset Date Comments TEST RESULTS 06/14/2018 Call From Lab 06/14/2018 Encounter Details Date Type Department Care Team Description 06/14/2018 Telephone Pulmonology - [place] [address] [facility] [address] [place] [address] Andre Benites PA-C 299 [facility] [address] [place] [address] TEST RESULTS; Call From Lab [...] on filedocumented in this encounter Care Teams Purchasing Supervisor Relationship Specialty Start Date End Date Victorino Martin MD PCP - General Internal Medicine 12/21/17 08/01/18 Sharon Vides PCP - General Internal Medicine 08/02/18 05/26/20 Brennan Burnett MD PCP - General Internal Medicine 05/27/20 12/07/21 Caitlyn Bowie MD [address] [place] [address] PCP - General Internal Medicine 12/08/21 Hayden Shah MD [address] [place] [address] Specialist Cardiovascular Disease 09/01/20 Pallavi Flood NP [address] [place] [address] Cardiology 09/01/20 documented as of this encounter
--- OUTSIDE RECORDS SUMMARY | 2024-10-17 18:08 | XMS_ITS | Encounter Summary ---
Author Organization [facility] and [facility] Address [address] [place] [address] Care Team Providers Care Garbage Person Name Role Phone Caitlyn Bowie MD Primary Care Provider +1- [phone] Encounter Details Date Type Department Care Team (Late st Contact Info) Description 02/20/2017 Scanned Document [facility] Health Information Management [address] [place] [address] External, Provider Social History Tobacco Use Types [...] Description 10/18/2024 10:30 AM EDT Office Visit [facility] [address] [place] [address] Alfredo Michaud Jr., EMELIA [address] [place] [address] [place] [address] 10/31/2024 1:00 PM EDT Office Visit Hematology Program at [address] - NP[address]301 [place] [address] Ronald Mills MD [address] [place] [address] documented as of this encounter [...] documented as of this encounter Care Teams Garbage Person Relationship Specialty Start Date End Date Caitlyn Bowie MD 3400 [facility] 1 [place] [address] PCP - General Internal Medicine 05/06/21 Henry Kelly MD Pulmonary Department 175 [facility], [address] [place] [address] Physician Pulmonary Disease 09/06/17 06/22/20 documented as of this encounter
--- OUTSIDE RECORDS SUMMARY | 2024-10-17 18:08 | XMS_ITS | Encounter Summary ---
Author Organization [facility] and [facility] Address [address] [place] [address] Care Team Providers Care Prepared Foods Team Leader Name Role Phone Caitlyn Bowie MD Primary Care Provider +1- [phone] Encounter Details Date Type Department Care Team (Late st Contact Info) Description 02/20/2017 Scanned Document [facility] Health Information Management [address] [place] [address] External, Provider Social History Tobacco Use Types [...] Description 10/18/2024 10:30 AM EDT Office Visit [facility] [address] [place] [address] Alfredo Michaud Jr., EMELIA [address] [place] [address] [place] [address] 10/31/2024 1:00 PM EDT Office Visit Hematology Program at [address] - NP[address]301 [place] [address] Ronald Mills MD [address] [place] [address] documented as of this encounter [...] documented as of this encounter Care Teams Prepared Foods Team Leader Relationship Specialty Start Date End Date Caitlyn Bowie MD 3400 [facility] 1 [place] [address] PCP - General Internal Medicine 05/06/21 Henry Kelly MD Pulmonary Department 175 [facility], [address] [place] [address] Physician Pulmonary Disease 09/06/17 06/22/20 documented as of this encounter
--- OUTSIDE RECORDS SUMMARY | 2024-10-17 18:08 | XMS_ITS | Encounter Summary ---
Author Organization [facility] and [facility] Address [address] [place] [address] Care Team Providers Care General Maintenance Engineer Name Role Phone Caitlyn Bowie MD Primary Care Provider +1- [phone] Encounter Details Date Type Department Care Team (Late st Contact Info) Description 07/08/2020 Scanned Document [facility] Health Information Management [address] [place] [address] External, Provider Social History Tobacco Use Types [...] Description 10/18/2024 10:30 AM EDT Office Visit [facility] [address] [place] [address] Alfredo Michaud Jr., PA [address] [place] [address] [place] [address] 10/31/2024 1:00 PM EDT [facility] Visit [facility] at [address] - NP[address] [place] [address] [place] [address] Ronald Mills MD 240 [facility] [address] [place] [address] documented as of this encounter [...] as of this encounter Care Teams General Maintenance Engineer Relationship Specialty Start Date End Date Caitlyn Bowie MD [address] [address] PCP - General Internal Medicine 05/06/21 documented as of this encounter
--- OUTSIDE RECORDS SUMMARY | 2024-10-17 18:08 | XMS_ITS | Encounter Summary ---
Author Organization [facility] and [facility] Address [address] [place] [address] Care Team Providers Care Fret Saw Operator Name Role Phone Caitlyn Bowie MD Primary Care Provider +1- [phone] Encounter Details Date Type Department Care Team (Late Contact Info) Description 09/18/2020 Scanned Document [facility] Health Information Management [address] [place] [address] External, Provider Social History Tobacco Use Types [...] Description 10/18/2024 10:30 AM EDT Office Visit [facility] [address] [place] [address] Alfredo Michaud Jr., PA [address] [place] [address] [place] [address] 10/31/2024 1:00 PM EDT Office Visit [facility] at [address] - [address] [facility] [place] [address] Ronald Mills MD 240 [facility] [address]1 [place] [address] documented as of this encounter [...] documented as of this encounter Care Teams Fret Saw Operator Relationship Specialty Start Date End Date Caitlyn Bowie MD [facility] [address] [address] PCP - General Internal Medicine 05/06/21 documented as of this encounter
--- OUTSIDE RECORDS SUMMARY | 2024-10-17 18:08 | XMS_ITS | Patient Health Record ---
Author Organization [facility] Address [address] [place] [address] Care Team Providers Care Regional Operations Manager Name Role Phone Shruti Bowieberly Primary Care Provider Cristian Fountain Unavailable [phone] Allergies Allergen (clinical drug ingredient) Drug/Non Drug Allergy documented on EMR Reaction Allergy Type Onset Date Status novacain (uncoded) Unknown Allergy A ctive vancomycin [...] Allergy Active Avocado Avocado Unknown Allergy Active Reason For Referral No Information Medications Medication [...] Status W/U Status Risk Notes Problem Diverticulitis (831210239) Diverticulitis (K57.92) Active confirmed Problem Irritable bowel syndrome characterized by constipation (286312032) Irritable bowel syndrome with constipation (K58.9) Active confirmed Problem Gastroesophageal reflux disease (512926574) GERD (gastroesophageal reflux disease) (K21.9) Active confirmed Plan Of Treatment No Information Insurance Providers Payer Name Payer Address Payer Phone Subscriber Number Group Number Insured Name Patient Relationship to Insured Coverage Start Date Coverage End Date MEDICARE OF [place] [address] [place] [address] [id number] CINDA WATSON Self - patient is the insured [employer] ATT[employer] CLAIMS [address] [place] [address] [id number] CINDA WATSON Self - patient is the insured Medical (General) History Medical History History ICD Code FL-04/2021-sees Dr. 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 Gomes Pneumomias Hypothyroidism Surgical History Surgery Date(Month/Year) Tonsils and adenoids BOLA Lung cancer-Left lower lobectomy at [facility], XRT, Chemo 2008
--- OUTSIDE RECORDS SUMMARY | 2024-10-17 18:08 | XMS_ITS | Encounter Summary ---
Author Organization [facility] Address [address] [place] [address] Care Team Providers Care Inspector Fabric Name Role Phone Caitlyn Bowie MD Primary Care Provider +1- [phone] Encounter Details Date Type Department Care Team (Late st Contact Info) Description 09/16/2020 Scanned Document [facility] Health Information Management [address] [place] [phone] External, Provider Social History Tobacco Use Types [...] Description 10/18/2024 10:30 AM EDT Office Visit [facility] [address] [place] [address] Alfredo Michaud Jr., PA [address] [place] [address] [place] [address] 10/31/2024 1:00 PM EDT Office Visit [facility] at [address] - NP[address]301 [facility] [place] [address] Ronald Mills MD 240 [facility] Max [address] [place] [address] documented as of this encounter [...] as of this encounter Care Teams Inspector Fabric Relationship Specialty Start Date End Date Caitlyn Bowie MD [facility] [address] [address] PCP - General Internal Medicine 05/06/21 documented as of this encounter
--- OUTSIDE RECORDS SUMMARY | 2024-10-17 18:08 | XMS_ITS | Encounter Summary ---
Author Organization [facility] Address [address] [place] [address] Care Team Providers Care Centerpuncher Name Role Phone Victorino Martin MD Primary Care Provider UnavailSharon Kimbrough Primary Care Provider Unava ilable Brennan Burnett MD Primary Care Provider Unavailab Hayden Montes MD Unavailable Pallavi Flood NP Unavailable +1- [phone] Caitlyn Bowie MD Primary Care Provider Unava ilable Reason for Visit * Reason Onset Date Comments Call From Md Office 06/27/2018 Encounter Details Date Type Department Care Team Description 06/27/2018 Telephone Pulmonology - [address] [place] [address] Henry Kelly MD Call From [...] Szymanski calling to speak to Dr. Kelly [phone] documented in this encounter Plan of Treatment Not on file documented as of this encounter Visit Diagnoses Not on filedocumented in this encounter Care Teams Centerpuncher Relationship Specialty Start Date End Date Victorino Martin MD PCP - General Internal Medicine 12/21/17 08/01/18 Sharon Vides PCP - General Internal Medicine 08/02/18 05/26/20 Brennan Burnett MD PCP - General Internal Medicine 05/27/20 12/07/21 Caitlyn Bowie MD [address] [place] [address] PCP - General Internal Medicine 12/08/21 Hayden Shah MD [address] [place], [place] [address] Specialist Cardiovascular Disease 09/01/20 Pallavi Flood NP [address] [place], [place] [address] Cardiology 09/01/20 documented as of this encounter
--- OUTSIDE RECORDS SUMMARY | 2024-10-17 18:08 | XMS_ITS | Encounter Summary ---
Author Organization [facility] Address [address] [place] [address] Care Team Providers Care Talent Acquisition Sourcer Name Role Phone Caitlyn Bowie MD Primary Care Provider +1- [phone] Encounter Details Date Type Department Care Team (Late st Contact Info) Description 05/19/2020 Scanned Document [facility] at [address] [phone] External, Provider Social History Tobacco Use Types [...] Description 10/18/2024 10:30 AM EDT Office Visit [facility] [address] [place] [address] Alfredo Michaud Jr., PA [address] [place] [address] [place] [address] 10/31/2024 1:00 PM EDT Office Visit Hematology Program at [place] [address] [facility] [place] [address] Ronald Mills MD 240 [facility] [address] [place] [address] documented as of this encounter [...] documented as of this encounter Care Teams Talent Acquisition Sourcer Relationship Specialty Start Date End Date Caitlyn Bowie MD 3400 [facility] 1 [place] [address] PCP - General Internal Medicine 05/06/21 Henry Kelly MD Pulmonary Department [address] [place] [address], [address] [place] [address] Physician Pulmonary Disease 09/06/17 06/22/20 documented as of this encounter
--- OUTSIDE RECORDS SUMMARY | 2024-10-17 18:08 | XMS_ITS | Encounter Summary ---
Author Organization [facility] Address [address] [place] [address] Care Team Providers Care Central Sterile Technician Name Role Phone Caitlyn Bowie MD Primary Care Provider +1- [phone] Encounter Details Date Type Department Care Team (Late st Contact Info) Description 09/15/2020 Scanned Document INTERFACE DEFAULT [address] [place] [address] System, Provider Not In Social History Tobacco [...] Description 10/18/2024 10:30 AM EDT Office Visit [facility] [address] [place] [address] Alfredo Michaud Jr., PA [address] [place] [address] [place] [address] 10/31/2024 1:00 PM EDT Office Visit [facility] at [address] - NP7-301 [facility] [place] [address] Ronald Mills MD 240 [facility] [address] [place] [address] documented as of this encounter Visit Diagnoses Not on filedocumented in this encounter Additional Health Concerns Infection Onset Date Last Indicated Resolved Time COVID-19 03/05/2022 03/05/2022 03/15/2022 7:18 PM EDT Assessment Noted Time PHQ-9 Depression Total Score: 2 11/07/19 19 2:06 PM EDT documented as of this encounter Care Teams Central Sterile Technician Relationship Specialty Start Date End Date Caitlyn Bowie MD [address] [address] PCP - General Internal Medicine 05/06/21 documented as of this encounter
--- OUTSIDE RECORDS SUMMARY | 2024-10-17 18:08 | XMS_ITS | Encounter Summary ---
Author Organization [facility] Address [address] [place] [address] Care Team Providers Care Engraver Optical Frames Name Role Phone Caitlyn Bowie MD Primary Care Provider +1- [phone] Encounter Details Date Type Department Care Team (Late st Contact Info) Description 05/14/2020 Documentation Hematology Program at [address] [address] Taya Nuno RN Social History Tobacco Use [...] Description 10/18/2024 10:30 AM EDT Office Visit [facility] [address] [place] [address] Alfredo Michaud Jr., PA [address] [place] [address] [place] [address] 10/31/2024 1:00 PM EDT Office Visit [facility] at [address] [facility] [place] [address] Ronald Mills MD 240 [facility] A1 [place] [address] documented as of this encounter Visit Diagnoses Not on filedocumented in this encounter Additional Health Concerns Infection Onset Date Last Indicated Resolved Time COVID-19 03/05/2022 03/05/2022 03/15/2022 7:18 PM EDT Assessment Noted Time PHQ-9 Depression Total Score: 2 11/07/19 19 2:06 PM EDT documented as of this encounter Care Teams Engraver Optical Frames Relationship Specialty Start Date End Date Caitlyn Bowie MD 3400 [facility] 1 [place] [address] PCP - General Internal Medicine 05/06/21 Henry Kelly MD Pulmonary Department 175 [facility] [address] [place] [address] Physician Pulmonary Disease 09/06/17 06/22/20 documented as of this encounter
--- OUTSIDE RECORDS SUMMARY | 2024-10-17 18:08 | XMS_ITS | Encounter Summary ---
Author Organization [facility] Address [address] [place] [address] Care Team Providers Care Teller Vault Name Role Phone Victorino Martin MD Primary Care Provider UnavailSharon Kimbrough Primary Care Provider Unava ilable Brennan Burnett MD Primary Care Provider Unavailab Hayden Montes MD Unavailable [phone] Pallavi Flood NP Unavailable [phone]- [phone] Caitlyn Bowie MD Primary Care Provider Unava ilable Reason for Visit * Reason Onset Date Comments refill request 06/25/2018 Call From Pharmacy 06/25/2018 Encounter Details Date Type Department Care Team Description 06/25/2018 Refill Pulmonology - [address] [place] [address] Henry Kelly MD refill request; [...] Does patient have an upcoming appointment? Yes [id number] (THE MEDICATION IS NOT ON THE MED LIST AND IS IDENTIFIED BELOW): {MED LIST:[id number]) Med name: Ventolin HFA Dosage: 90 mcg [...] bronchitis documented in this encounter Care Teams Teller Vault Relationship Specialty Start Date End Date Victorino Martin MD PCP - General Internal Medicine 12/21/17 08/01/18 Sharon Vides PCP - General Internal Medicine 08/02/18 05/26/20 Brennan Burnett MD PCP - General Internal Medicine 05/27/20 12/07/21 Caitlyn [address] [place] [address] PCP - General Internal Medicine 12/08/21 Hayden Shah MD [address] [place] [address] Specialist Cardiovascular Disease 09/01/20 Pallavi Flood NP [address] [place] [address] Cardiology 09/01/20 documented as of this encounter
--- OUTSIDE RECORDS SUMMARY | 2024-10-17 18:09 | XMS_ITS | Encounter Summary ---
Author Organization [facility] Address [address] [place] [address] Care Team Providers Care International Organizer Name Role Phone Caitlyn Bowie MD Primary Care Provider +1- [phone] Encounter Details Date Type Department Care Team (Late st Contact Info) Description 12/16/2016 Scanned Document [facility] Health Information Management [address] [place] [phone] External, Provider Social History Tobacco Use Types [...] Description 10/18/2024 10:30 AM EDT Office Visit [facility] [address] [place] [address] Alfredo Michaud Jr., EMELIA [address] [place] [address] [place] [address] 10/31/2024 1:00 PM EDT Office Visit Hematology Program at [address] - [address] [place] [address] Ronald Mills MD [address] [place] [address] documented [...] as of this encounter Care Teams International Organizer Relationship Specialty Start Date End Date Caitlyn Bowie MD 3400 [facility] 1 [place] [address] PCP - General Internal Medicine 05/06/21 Henry Kelly MD Pulmonary Department 175 [facility], [address] [place] [address] Physician Pulmonary Disease 09/06/17 06/22/20 documented as of this encounter
--- OUTSIDE RECORDS SUMMARY | 2024-10-17 18:09 | XMS_ITS | Encounter Summary ---
Author Organization [facility] and [facility] Address [address] [place] [address] Care Team Providers Care Agricultural Scientist Name Role Phone Caitlyn Bowie MD Primary Care Provider +1- [phone] Encounter Details Date Type Department Care Team (Late st Contact Info) Description 12/03/2019 Scanned Document [facility] Health Information Management [address] [place] [phone] External, Provider Social History Tobacco Use Types [...] Description 10/18/2024 10:30 AM EDT Office Visit [facility] [address] [place] [address] Alfredo Michaud Jr., PA [address] [place] [address] [place] [address] 10/31/2024 1:00 PM EDT Office Visit [facility] at [address] - [address] [facility] [place] [address] Ronald Mills MD 240 [facility] A1 [place] [address] documented as of this encounter Visit Diagnoses Not on filedocumented in this encounter Additional Health Concerns Infection Onset Date Last Indicated Resolved Time COVID-19 03/05/2022 03/05/2022 03/15/2022 7:18 PM EDT Assessment Noted Time PHQ-9 Depression Total Score: 2 11/07/19 19 2:06 PM EDT documented as of this encounter Care Teams Agricultural Scientist Relationship Specialty Start Date End Date Caitlyn Bowie MD 3400 [facility] 1 [place] [address] PCP - General Internal Medicine 05/06/21 Henry Kelly MD Pulmonary Department [address] [place] [address], [address] [place] [address] Physician Pulmonary Disease 09/06/17 06/22/20 documented as of this encounter
--- OUTSIDE RECORDS SUMMARY | 2024-10-17 18:09 | XMS_ITS | Encounter Summary ---
Author Organization [facility] Address [address] [place] [address] Care Team Providers Care Nurse Practitioner Physicians Assistant Name Role Phone Caitlyn Bowie MD Primary Care Provider +1- [phone] Encounter Details Date Type Department Care Team (Late st Contact Info) Description 12/16/2016 Scanned Document [facility] Health Information Management [address] [place] [address] External, Provider Social History Tobacco Use Types [...] Description 10/18/2024 10:30 AM EDT Office Visit [facility] [address] [place] [address] Alfredo Michaud Jr., EMELIA [address] [place] [address] [place] [address] 10/31/2024 1:00 PM EDT Office Visit Hematology Program at [address] - [address] [place] [address] Ronald Mills MD 240 [facility] [address]1 [place] [address] documented as of this encounter Visit Diagnoses Not on filedocumented in this encounter Additional Health Concerns Infection Onset Date Last Indicated Resolved Time COVID-19 03/05/2022 03/05/2022 03/15/2022 7:18 PM EDT documented as of this encounter Care Teams Nurse Practitioner Physicians Assistant Relationship Specialty Start Date End Date Caitlyn Bowie MD 3400 [facility] 1 [place] [address] PCP - General Internal Medicine 05/06/21 Herny Kelly MD Pulmonary Department [address] [place] [address], [address] [place] [address] Physician Pulmonary Disease 09/06/17 06/22/20 documented as of this encounter
--- OUTSIDE RECORDS SUMMARY | 2024-10-17 18:09 | XMS_ITS | Encounter Summary ---
Author Organization [facility] Address [address] [place] [address] Care Team Providers Care X Ray Technician Name Role Phone Caitlyn Bowie MD Primary Care Provider +1- [phone] Encounter Details Date Type Department Care Team (Late st Contact Info) Description 06/27/2019 Scanned Document [facility] at [address] [place] [address] Norma Renee MD [address] [place] [address] 2 [place] [address] Social History Tobacco Use Types [...] Description 10/18/2024 10:30 AM EDT Office Visit [facility] [address] [place] [address] Alfredo Michaud Jr., EMELIA [address] [place] [address] [place] [address] 10/31/2024 1:00 PM EDT Office Visit [facility] at [address] - [address] [facility] [place] [facility] [place] [address] Ronald Mills MD 240 [facility] A1 [place] [address] documented as of this encounter Visit Diagnoses Not on filedocumented in this encounter Additional Health Concerns Infection Onset Date Last Indicated Resolved Time COVID-19 03/05/2022 03/05/2022 03/15/2022 7:18 PM EDT Assessment Noted Time PHQ-9 Depression Total Score: 2 11/07/19 19 2:06 PM EDT documented as of this encounter Care Teams X Ray Technician Relationship Specialty Start Date End Date Caitlyn Bowie MD 3400 [facility] 1 [place] [address] PCP - General Internal Medicine 05/06/21 Henry Kelly MD Pulmonary Department 175 [facility], [address] [place] [address] Physician Pulmonary Disease 09/06/17 06/22/20 documented as of this encounter
--- OUTSIDE RECORDS SUMMARY | 2024-10-17 18:09 | XMS_ITS | Encounter Summary ---
Author Organization [facility] and [facility] Address [address] [place] [address] Care Team Providers Care Wood Router Name Role Phone Caitlyn Bowie MD Primary Care Provider +1- [phone] Encounter Details Date Type Department Care Team (Late st Contact Info) Description 01/22/2020 Scanned Document [facility] for [facility] [address] [place] [address] Kerwin Menjivar MD [address] [place] [address] Social History Tobacco Use Types Packs/Day [...] Description 10/18/2024 10:30 AM EDT Office Visit [facility] [address] [place] [address] Alfredo Michaud Jr., EMELIA [address] [place] [address] [place] [address] 10/31/2024 1:00 PM EDT Office Visit [facility] [address] - [address] [facility] [place] [facility] [place] [address] Ronald Mills MD 240 [facility] A1 [place] [address] documented as of this encounter Visit Diagnoses Not on filedocumented in this encounter Additional Health Concerns Infection Onset Date Last Indicated Resolved Time COVID-19 03/05/2022 03/05/2022 03/15/2022 7:18 PM EDT Assessment Noted Time PHQ-9 Depression Total Score: 2 11/07/19 19 2:06 PM EDT documented as of this encounter Care Teams Wood Router Relationship Specialty Start Date End Date Caitlyn Bowie MD 3400 [facility] 1 [place] [address] PCP - General Internal Medicine 05/06/21 Henry Kelly MD Pulmonary Department 175 [facility], [address] [place] [address] Physician Pulmonary Disease 09/06/17 06/22/20 documented as of this encounter
--- OUTSIDE RECORDS SUMMARY | 2024-10-17 18:09 | XMS_ITS | Encounter Summary ---
Author Organization [facility] Address [address] [place] [address] Care Team Providers Care Hide Salter Name Role Phone Caitlyn Bowie MD Primary Care Provider +1- [phone] Encounter Details Date Type Department Care Team (Late Contact Info) Description 09/09/2020 Scanned Document [facility] Health Information Management [address] [place] [address] External, Provider Social History Tobacco Use Types [...] Description 10/18/2024 10:30 AM EDT Office Visit [facility] [address] [place] [address] Alfredo Michaud Jr., [place] [address] [place] [address] [place] [address] 10/31/2024 1:00 PM EDT Office Visit [facility] at [address] - [address] [facility] [place] [address] Ronald Mills MD 240 [facility] [address] A1 [place] [address] documented as of this encounter [...] as of this encounter Care Teams Hide Salter Relationship Specialty Start Date End Date Caitlyn Bowie MD [facility] [address] [address] PCP - General Internal Medicine 05/06/21 documented as of this encounter
--- OUTSIDE RECORDS SUMMARY | 2024-10-17 18:09 | XMS_ITS | Encounter Summary ---
Author Organization [facility] Address [address] [place] [address] Care Team Providers Care Plan Manager Name Role Phone Caitlyn Bowie MD Primary Care Provider +1- [phone] Encounter Details Date Type Department Care Team (Late st Contact Info) Description 06/21/2012 Abstract [facility] at [address] [address] Mikel Lloyd MD [address] [place] [phone] (Fax) Social History Tobacco Use Types Packs/Day [...] Description 10/18/2024 10:30 AM EDT Office Visit [facility] [address] [place] [address] Alfredo Michaud Jr., PA [address] [place] [address] [place] [address] 10/31/2024 1:00 PM EDT Office Visit Hematology Program at [address] [facility] [place] [address] Ronald Mills MD 240 [facility] [address] A1 [place] [address] documented as of this encounter Visit Diagnoses Not on filedocumented in this encounter Additional Health Concerns Infection Onset Date Last Indicated Resolved Time COVID-19 03/05/2022 03/05/2022 03/15/2022 7:18 PM EDT documented as of this encounter Care Teams Plan Manager Relationship Specialty Start Date End Date Caitlyn Bowie MD 3400 [facility] 1 [place] [address] PCP - General Internal Medicine 05/06/21 Henry Kelly MD Pulmonary Department 175 [facility], [address] [place] [address] Physician Pulmonary Disease 09/06/17 06/22/20 documented as of this encounter
--- OUTSIDE RECORDS SUMMARY | 2024-10-17 18:09 | XMS_ITS | Encounter Summary ---
Author Organization [facility] and [facility] Address [address] [place] [address] Care Team Providers Care Medical Administrative Assistant Name Role Phone Caitlyn Bowie MD Primary Care Provider +1- [phone] Encounter Details Date Type Department Care Team (Late st Contact Info) Description 08/16/2012 Abstract [facility] Health Information Management [address] [place] [address] [place], Primary Care [address] [place] [address] Social History Tobacco Use Types Packs/Day Years [...] Description 10/18/2024 10:30 AM EDT Office Visit [facility] [address] [place] [address] Alfredo Michaud Jr., EMELIA [address] [place] [address] 10/31/2024 1:00 PM EDT Office Visit [facility] at [address] - [address], [place] [address] Ronald Mills MD [address] [place] [address] documented as of this encounter Visit Diagnoses Not on filedocumented in this encounter Additional Health Concerns Infection Onset Date Last Indicated Resolved Time COVID-19 03/05/2022 03/05/2022 03/15/2022 7:18 PM EDT documented as of this encounter Care Teams Medical Administrative Assistant Relationship Specialty Start Date End Date Caitlyn Bowie MD 3400 [facility] 1 [place] [address] PCP - General Internal Medicine 05/06/21 Henry Kelly MD Pulmonary Department 175 [facility], [address] [place] [address] Physician Pulmonary Disease 09/06/17 06/22/20 documented as of this encounter
--- OUTSIDE RECORDS SUMMARY | 2024-10-17 18:09 | XMS_ITS | Encounter Summary ---
Author Organization [facility] Address [address] [place] [address] Care Team Providers Care Load Checker Name Role Phone Cristofer Hope MD Primary Care Provider Victorino Read MD Primary Care Provider UnavailSharon Kimbrough Primary Care Provider Unava ilBrennan Newman MD Primary Care Provider Unavailab Hayden Montes MD Unavailable [phone] Pallavi Flood NP Unavailable +1- [phone] Caitlyn Bowie MD Primary Care Provider Unava chhaya Encounter Details Date Type Department Care Team Description 11/15/2017 Transfer Records Medical Records [address] [place] [address] Abstract, Provider Social History Tobacco Use Types [...] on filedocumented in this encounter Care Teams Load Checker Relationship Specialty Start Date End Date Cristofer Hope MD PCP - General Internal Medicine 05/16/17 12/20/17 Victorino Martin MD PCP - General Internal Medicine 12/21/17 08/01/18 [place] Vides PCP - General Internal Medicine 08/02/18 05/26/20 Brennan Burnett MD PCP - General Internal Medicine 05/27/20 12/07/21 Caitlyn Bowie MD [address] [place] [address] PCP - General Internal Medicine 12/08/21 Hayden Shah MD [address] [place] [address] Specialist Cardiovascular Disease 09/01/20 Pallavi Flood NP [address] [place] [address] Cardiology 09/01/20 documented as of this encounter
--- OUTSIDE RECORDS SUMMARY | 2024-10-17 18:09 | XMS_ITS | Encounter Summary ---
Author Organization [facility] Address [address] [place] [address] Care Team Providers Care Gaming Worker Name Role Phone Victorino Martin MD Primary Care Provider [place] Odonnell Primary Care Provider Brennan Castro MD Primary Care Provider Unavailab Hayden Montes MD Unavailable [phone] Pallavi Flood NP Unavailable [phone]- [phone] Caitlyn Bowie MD Primary Care Provider Johnathon shaver Encounter Details Date Type Department Care Team Description 07/04/2018 Refill Pulmonology - [address] [place] [address] Henry Kelly MD Social History [...] Preferred pharmacy: [facility] Comment: documented in this encounter Plan of Treatment Not on file documented as of this encounter Visit Diagnoses Not on filedocumented in this encounter Care Teams Gaming Worker Relationship Specialty Start Date End Date Victorino Martin MD PCP - General Internal Medicine 12/21/17 08/01/18 [place] Vides PCP - General Internal Medicine 08/02/18 05/26/20 Brennan Burnett MD PCP - General Internal Medicine 05/27/20 12/07/21 Caitlyn Bowie MD [address] [place] [address] PCP - General Internal Medicine 12/08/21 Hayden Shah MD [address] [place] [address] Specialist Cardiovascular Disease 09/01/20 Pallavi Flood NP [address] [place] [address] Cardiology 09/01/20 documented as of this encounter
--- OUTSIDE RECORDS SUMMARY | 2024-10-17 18:09 | XMS_ITS | Encounter Summary ---
Author Organization [facility] Address [address] [place] [address] Care Team Providers Care Improvement Nurse Name Role Phone Caitlyn oBwie MD Primary Care Provider +1- [phone] Encounter Details Date Type Department Care Team (Late st Contact Info) Description 06/27/2019 Scanned Document [facility] at [address] [place] [address] Norma Renee MD [address] [place] [address] 2 [place] [address] Social History Tobacco Use Types [...] Description 10/18/2024 10:30 AM EDT Office Visit [facility] [address] [place] [address] Alfredo Michaud Jr., EMELIA [address] [place] [address] [place] [address] 10/31/2024 1:00 PM EDT Office Visit [facility] at [address] - [address] [facility] [place] [facility] [place] [address] Ronald Mills MD 240 [facility] A1 [place] [address] documented as of this encounter Visit Diagnoses Not on filedocumented in this encounter Additional Health Concerns Infection Onset Date Last Indicated Resolved Time COVID-19 03/05/2022 03/05/2022 03/15/2022 7:18 PM EDT Assessment Noted Time PHQ-9 Depression Total Score: 2 11/07/19 19 2:06 PM EDT documented as of this encounter Care Teams Improvement Nurse Relationship Specialty Start Date End Date Caitlyn Bowie MD 3400 [facility] 1 [place] [address] PCP - General Internal Medicine 05/06/21 Henry Kelly MD Pulmonary Department 175 [facility], [address] [place] [address] Physician Pulmonary Disease 09/06/17 06/22/20 documented as of this encounter
--- OUTSIDE RECORDS SUMMARY | 2024-10-17 18:09 | XMS_ITS | Encounter Summary ---
Author Organization [facility] Address [address] [place] [address] Care Team Providers Care Instrument Checker Name Role Phone Caitlyn Bowie MD Primary Care Provider +1- [phone] Encounter Details Date Type Department Care Team (Late st Contact Info) Description 12/16/2016 Scanned Document [facility] Health Information Management [address] [place] [address] External, Provider Social History Tobacco Use Types [...] Description 10/18/2024 10:30 AM EDT Office Visit [facility] [address] [place] [address] Alfredo Michaud Jr., EMELIA [address] [place] [address] [place] [address] 10/31/2024 1:00 PM EDT Office Visit Hematology Program at [address] - [address] [place] [address] Ronald Mills MD [address] [place] [address] documented as of this encounter [...] as of this encounter Care Teams Instrument Checker Relationship Specialty Start Date End Date Caitlyn Bowie MD 3400 [facility] 1 [place] [address] PCP - General Internal Medicine 05/06/21 Henry Kelly MD Pulmonary Department 175 [facility], [address] [place] [address] Physician Pulmonary Disease 09/06/17 06/22/20 documented as of this encounter
--- OUTSIDE RECORDS SUMMARY | 2024-10-17 18:09 | XMS_ITS | Encounter Summary ---
Author Organization [facility] Address [address] [place] [address] Care Team Providers Care Track Broom Operator Name Role Phone Cristofer Hope MD Primary Care Provider Maria GuadalupevaVictorino Negrete MD Primary Care Provider Unavaila [place] Rios Primary Care Provider Unava ilable Brennan Burnett MD Primary Care Provider Unavailab Hayden Montes MD Unavailable [phone] Pallavi Flood NP Unavailable [phone]- [phone] Caityln Bowie MD Primary Care Provider Unava ilable Reason for Visit * Reason Onset Date Comments medication problems 10/23/2017 Encounter Details Date Type Department Care Team Description 10/23/2017 Telephone Pulmonology - [address] [place] [address] Leslie Caro NP medication problems Social [...] on filedocumented in this encounter Care Teams Track Broom Operator Relationship Specialty Start Date End Date Cristofer Hope MD PCP - General Internal Medicine 05/16/17 12/20/17 Victorino Martin MD PCP - General Internal Medicine 12/21/17 08/01/18 [place] Vides PCP - General Internal Medicine 08/02/18 05/26/20 Brennan Burnett MD PCP - General Internal Medicine 05/27/20 12/07/21 Caitlyn Bowie MD [address] [place] [address] PCP - General Internal Medicine 12/08/21 Hayden Shah MD [address] [place] [address] Specialist Cardiovascular Disease 09/01/20 Pallavi Flood NP [address] [place] [address] Cardiology 09/01/20 documented as of this encounter
--- OUTSIDE RECORDS SUMMARY | 2024-10-17 18:09 | XMS_ITS | Encounter Summary ---
Author Organization [facility] Address [address] [place] [phone] Care Team Providers Care Rope Cleaner Name Role Phone Caitlyn Bowie MD Primary Care Provider +1- [phone] Encounter Details Date Type Department Care Team (Late st Contact Info) Description 11/26/2019 Scanned Document Cancer Center at [address] [phone] External, Provider Social History Tobacco Use Types [...] Description 10/18/2024 10:30 AM EDT Office Visit [facility] [address] [place] [address] Alfredo Michaud Jr., PA [address] [place] [address] [place] [address] 10/31/2024 1:00 PM EDT Office Visit Hematology Program at [place] [address] [facility] [place] [address] Ronald Mills MD 240 [facility] Max A1 [place] [address] documented as of this encounter [...] documented as of this encounter Care Teams Rope Cleaner Relationship Specialty Start Date End Date Caitlyn Bowie MD 3400 [facility] 1 [place] [address] PCP - General Internal Medicine 05/06/21 Henry Kelly MD Pulmonary Department [address] [place] [address], [address] [place] [address] Physician Pulmonary Disease 09/06/17 06/22/20 documented as of this encounter
--- OUTSIDE RECORDS SUMMARY | 2024-10-17 18:09 | XMS_ITS | Encounter Summary ---
Author Organization [facility] and [facility] Address [address] [place] [address] Care Team Providers Care Quality Control Microbiology Supervisor Name Role Phone Caitlyn Bowie MD Primary Care Provider +1- [phone] Encounter Details Date Type Department Care Team (Late st Contact Info) Description 08/29/2019 Scanned Document Cancer Center at [address] [phone] External, Provider Social History Tobacco Use Types [...] Description 10/18/2024 10:30 AM EDT Office Visit [facility] [address] [place] [address] Alfredo Michaud Jr., PA [address] [place] [address] [place] [address] 10/31/2024 1:00 PM EDT Office Visit Hematology Program at [place] [address] [facility] [place] [address] Ronald Mills MD 240 [facility] Max A1 [place] [address] documented as of this encounter [...] as of this encounter Care Teams Quality Control Microbiology Supervisor Relationship Specialty Start Date End Date Caitlyn Bowie MD 3400 [facility] 1 [place] [address] PCP - General Internal Medicine 05/06/21 Henry Kelly MD Pulmonary Department [address] [place] [address], [address] [place] [address] Physician Pulmonary Disease 09/06/17 06/22/20 documented as of this encounter
--- OUTSIDE RECORDS SUMMARY | 2024-10-17 18:09 | XMS_ITS | Encounter Summary ---
Author Organization [facility] Address [address] [place] [address] Care Team Providers Care Tip Out Worker Name Role Phone Caitlyn Bowie MD Primary Care Provider +1- [phone] Encounter Details Date Type Department Care Team (Late st Contact Info) Description 07/01/2019 Scanned Document [facility] at [address] [place] [address] Norma Renee MD [address] [place] [address] 2 [place] [address] Social History Tobacco Use Types [...] Description 10/18/2024 10:30 AM EDT Office Visit [facility] [address] [place] [address] Alfredo Michaud Jr., EMELIA [address] [place] [address] [place] [address] 10/31/2024 1:00 PM EDT Office Visit [facility] at [address] - [address] [facility] [place] [facility] [place] [address] Ronald Mills MD 240 [facility] A1 [place] [address] documented as of this encounter Visit Diagnoses Not on filedocumented in this encounter Additional Health Concerns Infection Onset Date Last Indicated Resolved Time COVID-19 03/05/2022 03/05/2022 03/15/2022 7:18 PM EDT Assessment Noted Time PHQ-9 Depression Total Score: 2 11/07/19 19 2:06 PM EDT documented as of this encounter Care Teams Tip Out Worker Relationship Specialty Start Date End Date Caitlyn Bowie MD 3400 [facility] 1 [place] [address] PCP - General Internal Medicine 05/06/21 Henry Kelly MD Pulmonary Department 175 [facility], [address] [place] [address] Physician Pulmonary Disease 09/06/17 06/22/20 documented as of this encounter
--- OUTSIDE RECORDS SUMMARY | 2024-10-17 18:09 | XMS_ITS | Encounter Summary ---
Author Organization [facility] Address [address] [place] [address] Care Team Providers Care Registered Diet Technician Name Role Phone Caitlyn Bowie MD Primary Care Provider +1- [phone] Encounter Details Date Type Department Care Team (Late st Contact Info) Description 12/19/2016 Scanned Document [facility] Health Information Management [address] [place] [address] External, Provider Social History Tobacco Use Types [...] Description 10/18/2024 10:30 AM EDT Office Visit [facility] [address] [place] [address] Alfredo Michaud Jr., EMELIA [address] [place] [address] [place] [address] 10/31/2024 1:00 PM EDT Office Visit Hematology Program at [address] - [address] [place] [address] Ronald Mills MD [address] [place] [address] documented as of this encounter [...] as of this encounter Care Teams Registered Diet Technician Relationship Specialty Start Date End Date Caitlyn Bowie MD 3400 [facility] 1 [place] [address] PCP - General Internal Medicine 05/06/21 Henry Kelly MD Pulmonary Department 175 [employer] [employer], [address] [place] [address] Physician Pulmonary Disease 09/06/17 06/22/20 documented as of this encounter
--- OUTSIDE RECORDS SUMMARY | 2024-10-17 18:09 | XMS_ITS | Encounter Summary ---
Author Organization [facility] Address [address] [place] [address] Care Team Providers Care Food Specialist Name Role Phone Victorino Martin MD Primary Care Provider Sharon Odonnell Primary Care Provider Brennan Castro MD Primary Care Provider UnavailHayden Fernandez MD Unavailable [phone] Pallavi Flood NP Unavailable [phone]- [phone] Caitlyn Bowie MD Primary Care Provider Johnathon shaver Encounter Details Date Type Department Care Team Description 07/23/2018 [facility] Internal Medicine [address], [address] [place] [address] Henry Kelly MD Social History Tobacco Use [...] on filedocumented in this encounter Care Teams Food Specialist Relationship Specialty Start Date End Date Victorino Martin MD PCP - General Internal Medicine 12/21/17 08/01/18 Sharon Vides PCP - General Internal Medicine 08/02/18 05/26/20 Brennan Burnett MD PCP - General Internal Medicine 05/27/20 12/07/21 Caitlyn Bowie MD [address] [place] [address] PCP - General Internal Medicine 12/08/21 Hayden Shah MD [address] [place] [address] Specialist Cardiovascular Disease 09/01/20 Pallavi Flood NP [address] [place] [address] Cardiology 09/01/20 documented as of this encounter
--- OUTSIDE RECORDS SUMMARY | 2024-10-17 18:09 | XMS_ITS | Encounter Summary ---
Author Organization [facility] Address [address] [place] [address] Care Team Providers Care Machine Marker Name Role Phone Cristofer Hope MD Primary Care Provider Victorino Read MD Primary Care Provider UnavailSharon Kimbrough Primary Care Provider Unava ilBrennan Newman MD Primary Care Provider Unavailab Hayden Montes MD Unavailable [phone] Pallavi Flood NP Unavailable [phone]- [phone] Caitlyn Bowie MD Primary Care Provider Unava ilable Encounter Details Date Type Department Care Team Description 10/24/2017 Pt. Non Urgent Medical Question Pulmonology - [address] [place] [address] Leslie Caro NP Allergic rhinitis, [...] me. Thank you, Jovana chaveso.b. 1945 telephone [phone] documented in this encounter Plan of Treatment Not on file documented as of this encounter Visit Diagnoses Diagnosis Allergic rhinitis, unspecified chronicity, unspecified seasonality, unspecified trigger- Primary documented in this encounter Care Teams Machine Marker Relationship Specialty Start Date End Date Cristofer Hope MD PCP - General Internal Medicine 05/16/17 12/20/17 Victorino Martin MD PCP - General Internal Medicine 12/21/17 08/01/18 Sharon Vides PCP - General Internal Medicine 08/02/18 05/26/20 Brennan Burnett MD PCP - General Internal Medicine 05/27/20 12/07/21 Caitlyn Bowie MD [address] [place] [address] PCP - General Internal Medicine 12/08/21 Hayden Shah MD [address] [place] [address] Specialist Cardiovascular Disease 09/01/20 Pallavi Flood NP [address] [place] [address] Cardiology 09/01/20 documented as of this encounter
--- OUTSIDE RECORDS SUMMARY | 2024-10-17 18:09 | XMS_ITS | Encounter Summary ---
Author Organization [facility] Address [address] [place] [address] Care Team Providers Care Cube Cutter Name Role Phone Caitlyn Bowie MD Primary Care Provider +1- [phone] Encounter Details Date Type Department Care Team (Late st Contact Info) Description 12/16/2016 Scanned Document [facility] Health Information Management [address] [place] [address] External, Provider Social History Tobacco Use Types [...] Description 10/18/2024 10:30 AM EDT Office Visit [facility] [address] [place] [address] Alfredo Michaud Jr., EMELIA [address] [place] [address] [place] [address] 10/31/2024 1:00 PM EDT Office Visit Hematology Program at [address] [place] [address] Ronald Mills MD [address] [place] [address] documented [...] documented as of this encounter Care Teams Cube Cutter Relationship Specialty Start Date End Date Caitlyn Bowie MD 3400 [facility] 1 [place] [address] PCP - General Internal Medicine 05/06/21 Henry Kelly MD Pulmonary Department 175 [facility], [address] [place] [address] Physician Pulmonary Disease 09/06/17 06/22/20 documented as of this encounter
--- OUTSIDE RECORDS SUMMARY | 2024-10-17 18:09 | XMS_ITS | Encounter Summary ---
Author Organization [facility] Address [address] [place] [address] Care Team Providers Care Family Preservation Worker Name Role Phone Caitlyn Bowie MD Primary Care Provider [phone]- [phone] Encounter Details Date Type Department Care Team (Late st Contact Info) Description 04/27/2017 Scanned Document [facility] Health Information Management [address] [place] [address] External, Provider Social History Tobacco Use Types [...] Description 10/18/2024 10:30 AM EDT Office Visit [facility] [address] [place] [address] Alfredo Michaud Jr., EMELIA [address] [place] [address] [place] [address] 10/31/2024 1:00 PM EDT Office Visit Hematology Program at [address] [place] [address] Ronald Mills MD 240 [facility] [address] [place] [address] documented as of this encounter Visit Diagnoses Not on filedocumented in this encounter Additional Health Concerns Infection Onset Date Last Indicated Resolved Time COVID-19 03/05/2022 03/05/2022 03/15/2022 7:18 PM EDT documented as of this encounter Care Teams Family Preservation Worker Relationship Specialty Start Date End Date Caitlyn Bowie MD 3400 [facility] 1 [place] [address] PCP - General Internal Medicine 05/06/21 Henry Kelly MD Pulmonary Department [address] [place] [address], [address] [place] [address] Physician Pulmonary Disease 09/06/17 06/22/20 documented as of this encounter
--- OUTSIDE RECORDS SUMMARY | 2024-10-17 18:09 | XMS_ITS | Encounter Summary ---
Author Organization [facility] Address [address] [place] [phone] Care Team Providers Care Military Logistics Specialist Name Role Phone Caitlyn Bowie MD Primary Care Provider +1- [phone] Encounter Details Date Type Department Care Team (Late st Contact Info) Description 04/26/2017 Scanned Document Cardiovascular Medicine at [address] [address] Norma Renee MD [address] [place] [phone] Social History Tobacco Use Types Packs/Day Years [...] Description 10/18/2024 10:30 AM EDT Office Visit [facility] [address] [place] [address] Alfredo Michaud Jr., EMELIA [address] [place] [address] [place] [address] 10/31/2024 1:00 PM EDT Office Visit [facility] 20 [facility] - [address] [facility] [place] [address] Ronald Mills MD 240 [facility] [address] [place] [address] documented as of this encounter Visit Diagnoses Not on filedocumented in this encounter Additional Health Concerns Infection Onset Date Last Indicated Resolved Time COVID-19 03/05/2022 03/05/2022 03/15/2022 7:1 8 PM EDT documented as of this encounter Care Teams Military Logistics Specialist Relationship Specialty Start Date End Date Caitlyn Bowie MD 3400 [facility] 1 [place] [address] PCP - General Internal Medicine 05/06/21 Henry Kelly MD Pulmonary Department 175 [facility], [address] [place] [address] Physician Pulmonary Disease 09/06/17 06/22/20 documented as of this encounter
--- OUTSIDE RECORDS SUMMARY | 2024-10-17 18:09 | XMS_ITS | Encounter Summary ---
Author Organization [facility] Address [address] [place] [address] Care Team Providers Care Psychologist Experimental Name Role Phone Caitlyn Bowie MD Primary Care Provider +1- [phone] Encounter Details Date Type Department Care Team (Late st Contact Info) Description 03/01/2017 Scanned Document [facility] at [address] [address] Norma Renee MD [address] [place] [address] 2 [place] [phone] Social History Tobacco Use Types Packs/Day Years [...] Description 10/18/2024 10:30 AM EDT Office Visit [facility] [address] [place] [address] Alfredo Micahud Jr., EEMLIA [address] [place] [address] [place] [address] 10/31/2024 1:00 PM EDT Office Visit [facility] at [facility] [address] - [address] [facility] [place] [address] Ronald Mills MD 240 [facility] A1 [place] [address] documented as of this encounter Visit Diagnoses Not on filedocumented in this encounter Additional Health Concerns Infection Onset Date Last Indicated Resolved Time COVID-19 03/05/2022 03/05/2022 03/15/2022 7:18 PM EDT documented as of this encounter Care Teams Psychologist Experimental Relationship Specialty Start Date End Date Caitlyn Bowie MD 3400 [facility] 1 [place] [address] PCP - General Internal Medicine 05/06/21 Henry Kelly MD Pulmonary Department [address] [place] [address], [address] [place] [address] Physician Pulmonary Disease 09/06/17 06/22/20 documented as of this encounter
--- OUTSIDE RECORDS SUMMARY | 2024-10-17 18:09 | XMS_ITS | Encounter Summary ---
Author Organization [facility] Address [address] [place] [address] Care Team Providers Care Safety And Health Consultant Name Role Phone Caitlyn Bowie MD Primary Care Provider +1- [phone] Encounter Details Date Type Department Care Team (Late st Contact Info) Description 04/18/2013 Documentation Hematology Program at [address] [address] Isis Ragland RN Social History Tobacco Use [...] Description 10/18/2024 10:30 AM EDT Office Visit [facility] [address] [place] [address] Alfredo Michaud Jr., EMELIA [address] [place] [address] [place] [address] 10/31/2024 1:00 PM EDT Office Visit Hematology Program at [address] [address] Ronald Mills MD [address] [place] [address] documented as of this encounter Visit Diagnoses Not on filedocumented in this encounter Additional Health Concerns Infection Onset Date Last Indicated Resolved Time COVID-19 03/05/2022 03/05/2022 03/15/2022 7:18 PM EDT documented as of this encounter Care Teams Safety And Health Consultant Relationship Specialty Start Date End Date Caitlyn Bowie MD 3400 [facility] 1 [place] [address] PCP - General Internal Medicine 05/06/21 Henry Kelly MD Pulmonary Department [address] [place] [address], [address] [place] [address] Physician Pulmonary Disease 09/06/17 06/22/20 documented as of this encounter
--- OUTSIDE RECORDS SUMMARY | 2024-10-17 18:09 | XMS_ITS | Encounter Summary ---
Author Organization [facility] Address [address] [place] [address] Care Team Providers Care Machine Tool Dresser Name Role Phone Caitlyn Bowie MD Primary Care Provider +1- [phone] Encounter Details Date Type Department Care Team (Late st Contact Info) Description 11/29/2019 Scanned Document [facility] Health Information Management [address] [place] [address] External, Provider Social History Tobacco Use Types [...] Description 10/18/2024 10:30 AM EDT Office Visit [facility] [address] [place] [address] Alfredo Michaud Jr., PA [address] [place] [address] [place] [address] 10/31/2024 1:00 PM EDT Office Visit [facility] at [address] - [address] [place] [address] [facility] [place] [address] Ronald Mills MD [address] [place] [address] documented as of this encounter [...] as of this encounter Care Teams Machine Tool Dresser Relationship Specialty Start Date End Date Caitlyn Bowie MD 3400 [facility] 1 [place] [address] PCP - General Internal Medicine 05/06/21 Henry Kelly MD Pulmonary Department [address] [place] [address], [address] [place] [address] Physician Pulmonary Disease 09/06/17 06/22/20 documented as of this encounter
--- OUTSIDE RECORDS SUMMARY | 2024-10-17 18:09 | XMS_ITS | Encounter Summary ---
Author Organization [facility] Address [address] [place] [phone] Care Team Providers Care Telecommunications Project Manager Name Role Phone Caitlyn Bowie MD Primary Care Provider +1- [phone] Encounter Details Date Type Department Care Team (Late st Contact Info) Description 07/12/2019 Scanned Document [facility] at [address] [place] [address] Norma Renee MD [address] [place] [address] 2 [place] [address] Social History Tobacco Use Types [...] Description 10/18/2024 10:30 AM EDT Office Visit [facility] [address] [place] [address] Alfredo Michaud Jr., EMELIA [address] [place] [address] [place] [address] 10/31/2024 1:00 PM EDT Office Visit [facility] at [address] - [address] [facility] [place] [address] Ronald Mills MD 240 [facility] A1 [place] [address] documented as of this encounter Visit Diagnoses Not on filedocumented in this encounter Additional Health Concerns Infection Onset Date Last Indicated Resolved Time COVID-19 03/05/2022 03/05/2022 03/15/2022 7:18 PM EDT Assessment Noted Time PHQ-9 Depression Total Score: 2 11/07/19 19 2:06 PM EDT documented as of this encounter Care Teams Telecommunications Project Manager Relationship Specialty Start Date End Date Caitlyn Bowie MD 3400 [facility] 1 [place] [address] PCP - General Internal Medicine 05/06/21 Henry Kelly MD Pulmonary Department 175 [facility], [address] [place] [address] Physician Pulmonary Disease 09/06/17 06/22/20 documented as of this encounter
--- OUTSIDE RECORDS SUMMARY | 2024-10-17 18:09 | XMS_ITS | Encounter Summary ---
Author Organization [facility] Address [address] [place] [address] Care Team Providers Care Hand Violin Maker Name Role Phone Caitlyn Bowie MD Primary Care Provider +1- [phone] Encounter Details Date Type Department Care Team (Late st Contact Info) Description 01/28/2013 Scanned Document [facility] Thor[facility] at [address] [address] Solo Henry MD [address] [place] [address] Social History Tobacco Use Types Packs/Day [...] Description 10/18/2024 10:30 AM EDT Office Visit [facility] [address] [place] [address] Alfredo Michaud Jr., EMELIA [address] [place] [address] [place] [address] 10/31/2024 1:00 PM EDT Office Visit [facility] 20 [facility] - [address] [facility] [facility] [place] [address] Ronald Mills MD 240 [facility] Max A1 [place] [address] documented as of this encounter Visit Diagnoses Not on filedocumented in this encounter Additional Health Concerns Infection Onset Date Last Indicated Resolved Time COVID-19 03/05/2022 03/05/2022 03/15/2022 7:18 PM EDT documented as of this encounter Care Teams Hand Violin Maker Relationship Specialty Start Date End Date Caitlyn Bowie MD 3400 [facility] 1 [place] [address] PCP - General Internal Medicine 05/06/21 Henry Kelly MD Pulmonary Department 175 [facility], [address] [place] [address] Physician Pulmonary Disease 09/06/17 06/22/20 documented as of this encounter
--- OUTSIDE RECORDS SUMMARY | 2024-10-17 18:09 | XMS_ITS | Encounter Summary ---
Author Organization [facility] Address [address] [place] [address] Care Team Providers Care Instructional Technology Coach Name Role Phone Caitlyn Bowie MD Primary Care Provider +1- [phone] Encounter Details Date Type Department Care Team (Latest Contact Info) Description 04/15/2013 Transcribed Orders [facility] [address] [place] [address] Tian Atwood MD [address] [address] Unspecified hypothyroidism (Primary Dx) Social History [...] Description 10/18/2024 10:30 AM EDT Office Visit [facility] [address] [place] [address] Alfredo Michaud Jr., PA [address] [place] [address] [place] [address] 10/31/2024 1:00 PM EDT Office Visit [facility] at [address] - [address] [place] [address] Ronald Mills MD 240 [facility] [address] [place] [address] documented as of this encounter Results * Copper, serum total (YH) (04/15/2013 4:31 PM EDT) Pathologist [facility] Copper, Serum Total SEE BELOW [facility] Comment: Test ?Result ? Flag ??Unit ?RefValue Copper, S ? 1.35 ? mcg/mL ??0.75-1.45 04/15/2013 4:31 PM EDT us Tian Atwood MD LAB BLOOD ORDERABLES Final R esult [facility] [address] [place] [address] documented in this encounter Visit Diagnoses Diagnosis Unspecified hypothyroidism- Primary documented in this encounter Additional Health Concerns Infection Onset Date Last Indicated Resolved Time COVID-19 03/05/2022 03/05/2022 03/15/2022 7:18 PM EDT documented as of this encounter Care Teams Instructional Technology Coach Relationship Specialty Start Date End Date Caitlyn Bowie MD 3400 [facility] 1 [place] [address] PCP - General Internal Medicine 05/06/21 Henry Kelly MD Pulmonary Department [address] [place] [address], [address] [place] [address] Physician Pulmonary Disease 09/06/17 06/22/20 documented as of this encounter
--- OUTSIDE RECORDS SUMMARY | 2024-10-17 18:09 | XMS_ITS | Encounter Summary ---
Author Organization [facility] Address [address] [place] [address] Care Team Providers Care Creping Machine Operator Helper Name Role Phone Caitlyn Bowie MD Primary Care Provider +1- [phone] Encounter Details Date Type Department Care Team (Late st Contact Info) Description 12/16/2016 Scanned Document [facility] Health Information Management [address] [place] [address] External, Provider Social History Tobacco Use Types [...] Description 10/18/2024 10:30 AM EDT Office Visit [facility] [address] [place] [address] Alfredo Michaud Jr., EMELIA [address] [place] [address] [place] [address] 10/31/2024 1:00 PM EDT Office Visit Hematology Program at [address] [place] [address] Ronald Mills MD [address] [place] [address] documented as of this encounter [...] documented as of this encounter Care Teams Creping Machine Operator Helper Relationship Specialty Start Date End Date Caitlyn Bowie MD 3400 [facility] Max 1 [place] [address] PCP - General Internal Medicine 05/06/21 Henry Kelly MD Pulmonary Department 175 [facility], [address] [place] [address] Physician Pulmonary Disease 09/06/17 06/22/20 documented as of this encounter
--- OUTSIDE RECORDS SUMMARY | 2024-10-17 18:09 | XMS_ITS | Encounter Summary ---
Author Organization [facility] Address [address] [place] [address] Care Team Providers Care Chef Instructor Name Role Phone Caitlyn Bowie MD Primary Care Provider +1- [phone] Encounter Details Date Type Department Care Team (Late st Contact Info) Description 09/07/2020 Scanned Document Cardiovascular Medicine at [address] [address] Norma Renee MD [address] [place] [address] Social History Tobacco Use Types Packs/Day [...] Description 10/18/2024 10:30 AM EDT Office Visit [facility] [address] [place] [address] Alfredo Michaud Jr., EMELIA [address] [place] [address] [place] [address] 10/31/2024 1:00 PM EDT Office Visit [facility] at [address] - [address] [place] [address] Ronald Mills MD 240 [facility] A1 [place] [address] documented as of this encounter Visit Diagnoses Not on filedocumented in this encounter Additional Health Concerns Infection Onset Date Last Indicated Resolved Time COVID-19 03/05/2022 03/05/2022 03/15/2022 7:18 PM EDT Assessment Noted Time PHQ-9 Depression Total Score: 2 11/07/19 19 2:06 PM EDT documented as of this encounter Care Teams Chef Instructor Relationship Specialty Start Date End Date Caitlyn Bowie MD [address] [address] PCP - General Internal Medicine 05/06/21 documented as of this encounter
--- OUTSIDE RECORDS SUMMARY | 2024-10-17 18:09 | XMS_ITS | Clinical Summary ---
Author Organization [facility] Address [address] [place] [address] Care Team Providers Care Door Repairman Name Role Phone Brennan Burnett MD Primary Care Provider [phone] Allergies Active Allergy Reactions Criticality Noted Date [...] age to complete this topic Care Teams Door Repairman Relationship Specialty Start Date End Date Brennan Burnett MD [address] [place] [address] PCP - General Internal Medicine 07/06/20
--- OUTSIDE RECORDS SUMMARY | 2024-10-17 18:09 | XMS_ITS | Encounter Summary ---
Author Organization [facility] Address [address] [place] [address] Care Team Providers Care Wastewater Plant Civil Engineer Name Role Phone Victorino Martin MD Primary Care Provider UnavailSharon Kimbrough Primary Care Provider Unava ilable Brennan Burnett MD Primary Care Provider Unavailab Hayden Montes MD Unavailable [phone] Pallavi Flood NP Unavailable [phone]- [phone] Caitlyn Bowie MD Primary Care Provider Unava shenaable Reason for Visit * Reason Onset Date Comments hospital follow up 07/30/2018 Encounter Details Date Type Department Care Team Description 07/30/2018 Telephone Pulmonology - [address] [place] [address] Henry Kelly MD hospital follow [...] 1:10 PM EST Patient was admitted into [facility] with a d/c of Monday. The patient was admitted for Pnemonia and she has a blood clot in the left arm vein which is very painful. She would like to be seen today, is there any way you can fit her in today. Please call the patient at [phone]. documented in this encounter Plan of Treatment Not on file documented as of this encounter Visit Diagnoses Not on filedocumented in this encounter Care Teams Wastewater Plant Civil Engineer Relationship Specialty Start Date End Date Victorino Martin MD PCP - General Internal Medicine 12/21/17 08/01/18 Sharon Vides PCP - General Internal Medicine 08/02/18 05/26/20 Brennan Burnett MD PCP - General Internal Medicine 05/27/20 12/07/21 Caitlyn Bowie MD [address] [place] [address] PCP - General Internal Medicine 12/08/21 Hayden Shah MD [address] [place] [phone] Specialist Cardiovascular Disease 09/01/20 Pallavi Flood NP [address] [place] [address] Cardiology 09/01/20 documented as of this encounter
--- OUTSIDE RECORDS SUMMARY | 2024-10-17 18:09 | XMS_ITS | Encounter Summary ---
Author Organization [facility] and [facility] Address [address] [place] [address] Care Team Providers Care Flume Maker Name Role Phone Caitlyn Bowie MD Primary Care Provider +1- [phone] Encounter Details Date Type Department Care Team (Late st Contact Info) Description 06/27/2019 Scanned Document [facility] at [address] [place] [address] Norma Renee MD [address] [place] [address] 2 [place] [address] Social History Tobacco Use Types [...] Description 10/18/2024 10:30 AM EDT Office Visit [facility] [address] [place] [address] Alfredo Michaud Jr., EMELIA [address] [place] [address] [place] [address] 10/31/2024 1:00 PM EDT Office Visit [facility] at [address] - [address] [place] [address] Ronald Mills MD 240 [facility] A1 [place] [address] documented as of this encounter Visit Diagnoses Not on filedocumented in this encounter Additional Health Concerns Infection Onset Date Last Indicated Resolved Time COVID-19 03/05/2022 03/05/2022 03/15/2022 7:18 PM EDT Assessment Noted Time PHQ-9 Depression Total Score: 2 11/07/19 19 2:06 PM EDT documented as of this encounter Care Teams Flume Maker Relationship Specialty Start Date End Date Caitlyn Bowie MD 3400 [facility] 1 [place] [address] PCP - General Internal Medicine 05/06/21 Henry Kelly MD Pulmonary Department 175 [facility], [address] [place] [address] Physician Pulmonary Disease 09/06/17 06/22/20 documented as of this encounter
--- OUTSIDE RECORDS SUMMARY | 2024-10-17 18:09 | XMS_ITS | Encounter Summary ---
Author Organization [facility] Address [address] [place] [address] Care Team Providers Care Sand Mill Operator Facing Sand Name Role Phone Caitlyn Bowie MD Primary Care Provider +1- [phone] Encounter Details Date Type Department Care Team (Late st Contact Info) Description 12/16/2016 Scanned Document [facility] Health Information Management [address] [place] [address] External, Provider Social History Tobacco Use Types [...] Description 10/18/2024 10:30 AM EDT Office Visit [facility] [address] [place] [address] Alfredo Michaud Jr., EMELIA [address] [place] [address] [place] [address] 10/31/2024 1:00 PM EDT Office Visit Hematology Program at [address] - [address] [place] [address] Ronald Mills MD [address] [place] [address] documented as of this encounter [...] Bowie MD 3400 [facility] 1 [place] [address] PCP - General Internal Medicine 05/06/21 Henry Kelly MD Pulmonary Department 175 [facility], [address] [place] [address] Physician Pulmonary Disease 09/06/17 06/22/20 documented as of this encounter
--- OUTSIDE RECORDS SUMMARY | 2024-10-17 18:09 | XMS_ITS | Encounter Summary ---
Author Organization [facility] Address [address] [place] [address] Care Team Providers Care Dashboard Developer Name Role Phone Caitlyn Bowie MD Primary Care Provider +1- [phone] Encounter Details Date Type Department Care Team (Late st Contact Info) Description 08/29/2019 Scanned Document [facility] at [address] [phone] External, Provider Social History Tobacco Use Types [...] Description 10/18/2024 10:30 AM EDT Office Visit [facility] [address] [place] [address] Alfredo Michaud Jr., PA [address] [place] [address] [place] [address] 10/31/2024 1:00 PM EDT Office Visit Hematology Program at [place] [address] [facility] [place] [address] Ronald Mills MD 240 [facility] Max A1 [place] [address] documented as of this encounter [...] documented as of this encounter Care Teams Dashboard Developer Relationship Specialty Start Date End Date Caitlyn Bowie MD 3400 [facility] 1 [place] [address] PCP - General Internal Medicine 05/06/21 Henry Kelly MD Pulmonary Department [address] [place] [address], [address] [place] [address] Physician Pulmonary Disease 09/06/17 06/22/20 documented as of this encounter
--- OUTSIDE RECORDS SUMMARY | 2024-10-17 18:09 | XMS_ITS | Encounter Summary ---
Author Organization [facility] Address [address] [place] [address] Care Team Providers Care Handle And Vent Machine Operator Name Role Phone Victorino Martin MD Primary Care Provider UnavailSharon Kimbrough Primary Care Provider Unava ilable Brennan Burnett MD Primary Care Provider Unavailab Hayden Montes MD Unavailable Pallavi Flood NP Unavailable +1- [phone] Caitlyn Bowie MD Primary Care Provider Unava ilable Reason for Visit * Reason Onset Date Comments Orders Call 07/30/2018 ultrasound Encounter Details Date Type Department Care Team Description 07/30/2018 Telephone Pulmonology - [address] [place] [address] Henry Kelly MD Orders Call [...] have no order. Please fax order to [phone]. documented in this encounter Plan of Treatment Not on file documented as of this encounter Visit Diagnoses Not on filedocumented in this encounter Care Teams Handle And Vent Machine Operator Relationship Specialty Start Date End Date Victorino Martin MD PCP - General Internal Medicine 12/21/17 08/01/18 Sharon Vides PCP - General Internal Medicine 08/02/18 05/26/20 Brennan Burnett MD PCP - General Internal Medicine 05/27/20 12/07/21 Caitlyn Bowie MD [address] [place] [address] PCP - General Internal Medicine 12/08/21 Hayden Shah MD [address] [place] [address] Specialist Cardiovascular Disease 09/01/20 Pallavi Flood NP [address] [place] [address] Cardiology 09/01/20 documented as of this encounter
--- OUTSIDE RECORDS SUMMARY | 2024-10-17 18:09 | XMS_ITS | Encounter Summary ---
Author Organization [facility] Address [address] [place] [address] Care Team Providers Care Volleyball Referee Name Role Phone Caitlyn Bowie MD Primary Care Provider +1- [phone] Encounter Details Date Type Department Care Team (Late st Contact Info) Description 01/28/2013 Scanned Document [facility] at [address] [address] Solo Henry MD [address] [place] [address] Social History Tobacco Use Types Packs/Day [...] Description 10/18/2024 10:30 AM EDT Office Visit [facility] [address] [place] [address] Alfredo Michaud Jr., EMELIA [address] [place] [address] [place] [address] 10/31/2024 1:00 PM EDT Office Visit [facility] 20 [facility] - NP7[address]301 [facility] [place] [address] Ronald Mills MD 240 [facility] Max A1 [place] [address] documented as of this encounter Visit Diagnoses Not on filedocumented in this encounter Additional Health Concerns Infection Onset Date Last Indicated Resolved Time COVID-19 03/05/2022 03/05/2022 03/15/2022 7:18 PM EDT documented as of this encounter Care Teams Volleyball Referee Relationship Specialty Start Date End Date Caitlyn Bowie MD 3400 [facility] 1 [place] [address] PCP - General Internal Medicine 05/06/21 Henry Kelly MD Pulmonary Department 175 [facility], [address] [place] [address] Physician Pulmonary Disease 09/06/17 06/22/20 documented as of this encounter
--- OUTSIDE RECORDS SUMMARY | 2024-10-17 18:09 | XMS_ITS | Encounter Summary ---
Author Organization [facility] Address [address] [place] [address] Care Team Providers Care Licensed Funeral Director And Embalmer Name Role Phone Victorino Martin MD Primary Care Provider Sharon Odonnell Primary Care Provider Brennan Castro MD Primary Care Provider Unavailab Hayden Montes MD Unavailable [phone] Pallavi Flood NP Unavailable +1- [phone] Caitlyn Bowie MD Primary Care Provider Johnathon shaver Encounter Details Date Type Department Care Team Description 07/31/2018 Orders Only Pulmonology - [address] [place] [address] Henry Kelly MD Social History [...] on filedocumented in this encounter Care Teams Licensed Funeral Director And Embalmer Relationship Specialty Start Date End Date Victorino Martin MD PCP - General Internal Medicine 12/21/17 08/01/18 Sharon Vides PCP - General Internal Medicine 08/02/18 05/26/20 Brennan Burnett MD PCP - General Internal Medicine 05/27/20 12/07/21 Caitlyn Bowie MD [address] [place] [address] PCP - General Internal Medicine 12/08/21 Hayden Shah MD [address] [place], [place] [address] Specialist Cardiovascular Disease 09/01/20 Pallavi Flood NP [address] [place] [address] Cardiology 09/01/20 documented as of this encounter
--- OUTSIDE RECORDS SUMMARY | 2024-10-17 18:09 | XMS_ITS | Encounter Summary ---
Author Organization [facility] and [facility] Address [address] [place] [address] Care Team Providers Care County Engineer Name Role Phone Caitlyn Bowie MD Primary Care Provider +1- [phone] Encounter Details Date Type Department Care Team (Late st Contact Info) Description 07/26/2012 Abstract [facility] Health Information Management [address] [place] [address] [place], Primary Care [address] [place] [address] Social History Tobacco Use Types Packs/Day Years [...] Description 10/18/2024 10:30 AM EDT Office Visit [facility] [address] [place] [address] Alfredo Michaud Jr., EMELIA [address] [place] [address] 10/31/2024 1:00 PM EDT Office Visit Hematology Program at [address] - [address] [phone] Ronald Mills MD [address] [address] documented as of this encounter Visit Diagnoses Not on filedocumented in this encounter Additional Health Concerns Infection Onset Date Last Indicated Resolved Time COVID-19 03/05/2022 03/05/2022 03/15/2022 7:18 PM EDT documented as of this encounter Care Teams County Engineer Relationship Specialty Start Date End Date Caitlyn Bowie MD 3400 [facility] 1 [place] [address] PCP - General Internal Medicine 05/06/21 Henry Kelly MD Pulmonary Department 175 [facility], [address] [place] [address] Physician Pulmonary Disease 09/06/17 06/22/20 documented as of this encounter
--- OUTSIDE RECORDS SUMMARY | 2024-10-17 18:09 | XMS_ITS | Encounter Summary ---
Author Organization [facility] Address [address] [place] [address] Care Team Providers Care Peoplesoft Functional Analyst Name Role Phone Cristofer Hope MD Primary Care Provider Victorino Read MD Primary Care Provider UnavailSharon Kimbrough Primary Care Provider Unava ilBrennan Newman MD Primary Care Provider Unavailab Hayden Montes MD Unavailable [phone] Pallavi Flood NP Unavailable +1- [phone] Caitlyn Bowie MD Primary Care Provider Unava chhaya Encounter Details Date Type Department Care Team Description 06/12/2017 Transfer Records Medical Records 4 [place] [address] Abstract, Provider Social History Tobacco Use Types [...] on filedocumented in this encounter Care Teams Peoplesoft Functional Analyst Relationship Specialty Start Date End Date Cristofer Hope MD PCP - General Internal Medicine 05/16/17 12/20/17 Victorion Martin MD PCP - General Internal Medicine 12/21/17 08/01/18 Sharon Vides PCP - General Internal Medicine 08/02/18 05/26/20 Brennan Burnett MD PCP - General Internal Medicine 05/27/20 12/07/21 Caitlyn Bowie MD [address] [place] [address] PCP - General Internal Medicine 12/08/21 Hayden Shah MD [address] [place], [place] [address] Specialist Cardiovascular Disease 09/01/20 Pallavi Flood NP [address] [place], [place] [address] Cardiology 09/01/20 documented as of this encounter
--- OUTSIDE RECORDS SUMMARY | 2024-10-17 18:09 | XMS_ITS | Encounter Summary ---
Author Organization [facility] Address [address] [place] [address] Care Team Providers Care Animal Eviscerator Name Role Phone Caitlyn Bowie MD Primary Care Provider +1- [phone] Encounter Details Date Type Department Care Team (Late st Contact Info) Description 04/26/2017 Scanned Document Cardiovascular Medicine at [address] [place] [address] System, Provider Not In Social History Tobacco [...] Department Care Team (Late Contact Info) Description 10/18/2024 10:30 AM EDT Office Visit [facility] [address] [place] [address] Alfredo Michaud Jr., EMELIA [address] [place] [address] [place] [address] 10/31/2024 1:00 PM EDT Office Visit Hematology Program at [address] [address] Ronald Mills MD [address] [place] [address] documented as of this encounter [...] as of this encounter Care Teams Animal Eviscerator Relationship Specialty Start Date End Date Caitlyn Bowie MD 3400 [facility] Max 1 [place] [address] PCP - General Internal Medicine 05/06/21 Henry Kelly MD Pulmonary Department 175 [facility], [address] [place] [address] Physician Pulmonary Disease 09/06/17 06/22/20 documented as of this encounter
--- OUTSIDE RECORDS SUMMARY | 2024-10-17 18:09 | XMS_ITS | Encounter Summary ---
Author Organization [facility] and [facility] Address [address] [place] [address] Care Team Providers Care Paper Tube Cutter Name Role Phone Caitlyn Bowie MD Primary Care Provider +1- [phone] Encounter Details Date Type Department Care Team (Late st Contact Info) Description 02/21/2017 Scanned Document [facility] Health Information Management [address] [place] [address] External, Provider Social History Tobacco Use Types [...] Description 10/18/2024 10:30 AM EDT Office Visit [facility] [address] [place] [address] Alfredo Michaud Jr., EMELIA [address] [place] [address] [place] [address] 10/31/2024 1:00 PM EDT Office Visit Hematology Program at [address] - [address] [place] [address] Ronald Mills MD [address] [place] [address] documented [...] as of this encounter Care Teams Paper Tube Cutter Relationship Specialty Start Date End Date Caitlyn Bowie MD 3400 [facility] 1 [place] [address] PCP - General Internal Medicine 05/06/21 Henry Kelly MD Pulmonary Department 175 [facility], [address] [place] [address] Physician Pulmonary Disease 09/06/17 06/22/20 documented as of this encounter
--- OUTSIDE RECORDS SUMMARY | 2024-10-17 18:09 | XMS_ITS | Encounter Summary ---
Author Organization [facility] and [facility] Address [address] [place] [address] Care Team Providers Care Paranormal Investigator Name Role Phone Caitlyn Bowie MD Primary Care Provider +1- [phone] Encounter Details Date Type Department Care Team (Late st Contact Info) Description 12/16/2016 Scanned Document [facility] Health Information Management [address] [place] [address] External, Provider Social History Tobacco Use Types [...] Description 10/18/2024 10:30 AM EDT Office Visit [facility] [address] [place] [address] Alfredo Michaud Jr., EMELIA [address] [place] [address] [place] [address] 10/31/2024 1:00 PM EDT Office Visit Hematology Program at [address] - [address] [place] [address] Ronald Mills MD [address] [facility] Max A1 [place] [address] documented [...] documented as of this encounter Care Teams Paranormal Investigator Relationship Specialty Start Date End Date Caitlyn Bowie MD 3400 [facility] 1 [place] [address] PCP - General Internal Medicine 05/06/21 Henry Kelly MD Pulmonary Department 175 [facility], [address] [place] [address] Physician Pulmonary Disease 09/06/17 06/22/20 documented as of this encounter
--- OUTSIDE RECORDS SUMMARY | 2024-10-17 18:10 | XMS_ITS | Encounter Summary ---
Author Organization [facility] Address [address] [place] [address] Care Team Providers Care Sheet Metal Duct Worker Supervisor Name Role Phone Caitlyn Bowie MD Primary Care Provider +1- [phone] Encounter Details Date Type Department Care Team (Late st Contact Info) Description 04/11/2021 Scanned Document INTERFACE DEFAULT [address] [place] [address] System, Provider Not In Social History Tobacco [...] Description 10/18/2024 10:30 AM EDT Office Visit [facility] [address] [place] [address] Alfredo Michaud Jr., PA [address] [place] [address] [place] [address] 10/31/2024 1:00 PM EDT Office Visit [facility] at [address] - [address] [place] [address] Ronald Mills MD [address] [place] [address] documented as of this encounter [...] documented as of this encounter Care Teams Sheet Metal Duct Worker Supervisor Relationship Specialty Start Date End Date Caitlyn Bowie MD [address] [address] PCP - General Internal Medicine 05/06/21 documented as of this encounter
--- OUTSIDE RECORDS SUMMARY | 2024-10-17 18:10 | XMS_ITS | Encounter Summary ---
Author Organization [facility] Address [address] [place] [address] Care Team Providers Care Cadd Manager Name Role Phone Caitlyn Bowie MD Primary Care Provider +1- [phone] Encounter Details Date Type Department Care Team (Late st Contact Info) Description 04/22/2021 Scanned Document INTERFACE DEFAULT [address] [place] [address] System, Provider Not In Social History Tobacco [...] Description 10/18/2024 10:30 AM EDT Office Visit [facility] [address] [place] [address] Alfredo Michaud Jr., PA [address] [place] [address] [place] [address] 10/31/2024 1:00 PM EDT Office Visit [facility] at [address] - [address] [facility] [place] [address] Ronald Mills MD [address] [place] [address] documented as of this encounter [...] documented as of this encounter Care Teams Cadd Manager Relationship Specialty Start Date End Date Caitlyn Bowie MD [address] [address] PCP - General Internal Medicine 05/06/21 documented as of this encounter
--- OUTSIDE RECORDS SUMMARY | 2024-10-17 18:10 | XMS_ITS | Encounter Summary ---
Author Organization [facility] Address [address] [place] [address] Care Team Providers Care Wage Adjuster Name Role Phone Caitlyn Bowie MD Primary Care Provider +1- [phone] Encounter Details Date Type Department Care Team (Late st Contact Info) Description 03/11/2021 Scanned Document INTERFACE DEFAULT [address] [place] [address] System, Provider Not In Social History Tobacco [...] Description 10/18/2024 10:30 AM EDT Office Visit [facility] [address] [place] [address] Alfredo Michaud Jr., PA [address] [place] [address] [place] [address] 10/31/2024 1:00 PM EDT Office Visit [facility] at [address] - [address] [facility] [place] [address] Ronald Mills MD [address] [place] [address] documented as of this encounter [...] as of this encounter Care Teams Wage Adjuster Relationship Specialty Start Date End Date Caitlyn Bowie MD [address] [address] PCP - General Internal Medicine 05/06/21 documented as of this encounter
--- OUTSIDE RECORDS SUMMARY | 2024-10-17 18:10 | XMS_ITS | Encounter Summary ---
Author Organization [facility] Address [address] [place] [address] Care Team Providers Care Marketing Pr Intern Name Role Phone Caitlyn Bowie MD Primary Care Provider +1- [phone] Encounter Details Date Type Department Care Team (Late st Contact Info) Description 02/28/2021 Scanned Document INTERFACE DEFAULT [address] [place] [address] System, Provider Not In Social History Tobacco [...] Description 10/18/2024 10:30 AM EDT Office Visit [facility] [address] [place] [address] Alfredo Michaud Jr., PA [address] [place] [address] [place] [address] 10/31/2024 1:00 PM EDT Office Visit [facility] at [address] - [address] [facility] [place] [address] Ronald Mills MD [address] [place] [address] documented as of this encounter [...] as of this encounter Care Teams Marketing Pr Intern Relationship Specialty Start Date End Date Caitlyn Bowie MD [address] [address] PCP - General Internal Medicine 05/06/21 documented as of this encounter
--- OUTSIDE RECORDS SUMMARY | 2024-10-17 18:10 | XMS_ITS | Encounter Summary ---
Author Organization [facility] Address [address] [place] [address] Care Team Providers Care Spray Dry Operator Name Role Phone Caitlyn Bowie MD Primary Care Provider +1- [phone] Encounter Details Date Type Department Care Team (Late Contact Info) Description 04/11/2021 Scanned Document [facility] Health Information Management [address] [place] [address] External, Provider Social History Tobacco Use Types [...] Description 10/18/2024 10:30 AM EDT Office Visit [facility] [address] [place] [address] Alfredo Michaud Jr., PA [address] [place] [address] [place] [address] 10/31/2024 1:00 PM EDT Office Visit [facility] at [address] - [address] [facility] [place] [address] Ronald Mills MD 240 [facility] A1 [place] [address] documented as of this encounter Visit Diagnoses Not on filedocumented in this encounter Additional Health Concerns Infection Onset Date Last Indicated Resolved Time COVID-19 03/05/2022 03/05/2022 03/15/2022 7:18 PM EDT Assessment Noted Time PHQ-9 Depression Total Score: 2 11/07/19 19 2:06 PM EDT documented as of this encounter Care Teams Spray Dry Operator Relationship Specialty Start Date End Date Caitlyn Bowie MD [address] [address] PCP - General Internal Medicine 05/06/21 documented as of this encounter
--- OUTSIDE RECORDS SUMMARY | 2024-10-17 18:10 | XMS_ITS | Encounter Summary ---
Author Organization [facility] and [facility] Address [address] [place] [address] Care Team Providers Care Tractor Operator Helper Name Role Phone Caitlyn Bowie MD Primary Care Provider [phone]- [phone] Encounter Details Date Type Department Care Team (Late Contact Info) Description 01/26/2018 Scanned Document [facility] Health Information Management [address] [place] [address] External, Provider Social History Tobacco Use Types [...] Description 10/18/2024 10:30 AM EDT Office Visit [facility] [address] [place] [address] Alfredo Michaud Jr., EMELIA [address] [place] [address] [place] [address] 10/31/2024 1:00 PM EDT Office Visit Hematology Program at [address] - [address] [place] [address] Ronald Mills MD [address] [place] [address] documented as of this encounter [...] as of this encounter Care Teams Tractor Operator Helper Relationship Specialty Start Date End Date Caitlyn Bowie MD [address] [facility] 1 [place] [address] PCP - General Internal Medicine 05/06/21 Henry Kelly MD Pulmonary Department [address] [facility], [address] [place] [address] Physician Pulmonary Disease 09/06/17 06/22/20 documented as of this encounter
--- OUTSIDE RECORDS SUMMARY | 2024-10-17 18:10 | XMS_ITS | Encounter Summary ---
Author Organization [facility] Address [address] [place] [address] Care Team Providers Care Wrecking Mechanic Name Role Phone Victorino Martin MD Primary Care Provider UnavailSharon Kimbrough Primary Care Provider Unava ilable Brennan Burnett MD Primary Care Provider Unavailab Hayden Montes MD Unavailable [phone] Pallavi Flood NP Unavailable [phone] Caitlyn Bowie MD Primary Care Provider Unava ilable Reason for Visit * Reason Onset Date Comments other 02/06/2018 Encounter Details Date Type Department Care Team Description 02/06/2018 Telephone Pulmonology - [address] [place] [address] Henry Kelly MD other Social [...] on filedocumented in this encounter Care Teams Wrecking Mechanic Relationship Specialty Start Date End Date Victorino Martin MD PCP - General Internal Medicine 12/21/17 08/01/18 Sharon Vides PCP - General Internal Medicine 08/02/18 05/26/20 Brennan Burnett MD PCP - General Internal Medicine 05/27/20 12/07/21 Caitlyn Bowie MD [address] [place] [address] PCP - General Internal Medicine 12/08/21 Hayden Shah MD [address] [place] [address] Specialist Cardiovascular Disease 09/01/20 Pallavi Flood NP [address] [place] [address] Cardiology 09/01/20 documented as of this encounter
--- OUTSIDE RECORDS SUMMARY | 2024-10-17 18:10 | XMS_ITS | Encounter Summary ---
Author Organization [facility] Address [address] [place] [address] Care Team Providers Care Link Trainer Maintenance Worker Name Role Phone Sharon Vides Primary Care Provider Unava ilable Brennan Burnett MD Primary Care Provider Unavailab Hayden Montes MD Unavailable [phone] Pallavi Flood NP Unavailable [phone] Caitlyn Bowie MD Primary Care Provider Unava ilable Reason for Visit * Reason Onset Date Comments Ankle Pain 07/05/2019 le, foot pain Encounter Details Date Type Department Care Team Description 07/05/2019 Telephone General Surgery [address] [place] [address] Norma Mendoza MD [address] [place] [address] Ankle Pain (le, foot pain) Social History [...] on filedocumented in this encounter Care Teams Link Trainer Maintenance Worker Relationship Specialty Start Date End Date Sharon Vides PCP - General Internal Medicine 08/02/18 05/26/20 Brennan Burnett MD PCP - General Internal Medicine 05/27/20 12/07/21 Caitlyn Bowie MD [address] [place] [address] PCP - General Internal Medicine 12/08/21 Hayden Shah MD [address] [place] [address] Specialist Cardiovascular Disease 09/01/20 Pallavi Flood NP [address] [place] [address] Cardiology 09/01/20 documented as of this encounter
--- OUTSIDE RECORDS SUMMARY | 2024-10-17 18:10 | XMS_ITS | Encounter Summary ---
Author Organization [facility] Address [address] [place] [address] Care Team Providers Care Goat Herder Name Role Phone Brennan Burnett MD Primary Care Provider Unavailab Hayden Montes MD Unavailable [phone] Pallavi Flood NP Unavailable [phone] Caitlyn Bowie MD Primary Care Provider Unava ilable Encounter Details Date Type Department Care Team Description 06/02/2020 Carpet Yarn Winder Operator Report Medical Records [address] [place] [address] Abstract, Provider Social History Tobacco Use Types [...] on filedocumented in this encounter Care Teams Goat Herder Relationship Specialty Start Date End Date Brennan Burnett MD PCP - General Internal Medicine 05/27/20 12/07/21 Caitlyn Bowie MD [address] [place] [address] PCP - General Internal Medicine 12/08/21 Hayden Shah MD [address] [place] [address] Specialist Cardiovascular Disease 09/01/20 Pallavi Flood NP [address] [place] [address] [id number] Cardiology 09/01/20 documented as of this encounter
--- OUTSIDE RECORDS SUMMARY | 2024-10-17 18:10 | XMS_ITS | Encounter Summary ---
Author Organization [facility] Address [address] [place] [address] Care Team Providers Care Log Roller Name Role Phone Victorino Martin MD Primary Care Provider UnavailSharon Kimbrough Primary Care Provider Unava ilable Brennan Burnett MD Primary Care Provider Unavailab Hayden Montes MD Unavailable [phone] Pallavi Flood NP Unavailable [phone] Caitlyn Bowie MD Primary Care Provider Unava chhaya Reason for Visit * Reason Onset Date Comments Medical Records 05/10/2018 Encounter Details Date Type Department Care Team Description 05/10/2018 Telephone Pulmonology - [address] [place] [address] Henry Kelly MD Medical Records [...] the one that she had done at [facility] was not in the records, nor was the information about all the times that she had pnuemonia. She wants to make sure thatyou meant to give her two copies of the same procedure. documented in this encounter Plan of Treatment Not on file documented as of this encounter Visit Diagnoses Not on filedocumented in this encounter Care Teams Log Roller Relationship Specialty Start Date End Date Victorino Martin MD PCP - General Internal Medicine 12/21/17 08/01/18 Sharon Vides PCP - General Internal Medicine 08/02/18 05/26/20 Brennan Burnett MD PCP - General Internal Medicine 05/27/20 12/07/21 Caitlyn Bowie MD [address] [place] [address] PCP - General Internal Medicine 12/08/21 Hayden Shah MD [address] [place] [address] Specialist Cardiovascular Disease 09/01/20 Pallavi Flood NP [address] [place] [address] Cardiology 09/01/20 documented as of this encounter
--- OUTSIDE RECORDS SUMMARY | 2024-10-17 18:10 | XMS_ITS | Encounter Summary ---
Author Organization [facility] Address [address] [place] [address] Care Team Providers Care Laborer Shellfish Processing Name Role Phone Victorino Martin MD Primary Care Provider Sharon Odonnell Primary Care Provider Brennan Castro MD Primary Care Provider UnavailHayden Fernandez MD Unavailable [phone] Pallavi Flood NP Unavailable [phone] Caitlyn Bowie MD Primary Care Provider Johnathon shaver Encounter Details Date Type Department Care Team Description 01/26/2018 [facility] Medical Records [address] [place] [address] Social History Tobacco Use Types Packs/Day Years [...] on filedocumented in this encounter Care Teams Laborer Shellfish Processing Relationship Specialty Start Date End Date Victorino Martin MD PCP - General Internal Medicine 12/21/17 08/01/18 Sharon Vides PCP - General Internal Medicine 08/02/18 05/26/20 Brennan Bunrett MD PCP - General Internal Medicine 05/27/20 12/07/21 Caitlyn Bowie MD [address] [place] [address] PCP - General Internal Medicine 12/08/21 Hayden Shah MD [address] [place], [place] [address] Specialist Cardiovascular Disease 09/01/20 Pallavi Flood NP [address] [place] [address] Cardiology 09/01/20 documented as of this encounter
--- OUTSIDE RECORDS SUMMARY | 2024-10-17 18:10 | XMS_ITS | Encounter Summary ---
Author Organization [facility] and [facility] Address [address] [place] [address] Care Team Providers Care Linux Administrator Name Role Phone Caitlyn Bowie MD Primary Care Provider [phone]- [phone] Encounter Details Date Type Department Care Team (Late st Contact Info) Description 03/23/2021 Scanned Document INTERFACE DEFAULT [address] [place] [address] System, Provider Not In Social History Tobacco [...] Description 10/18/2024 10:30 AM EDT Office Visit [facility] [address] [place] [address] Alfredo Michaud Jr., PA [address] [place] [address] [place] [address] 10/31/2024 1:00 PM EDT Office Visit [facility] at [address] - [address] [place] [address] [place] [address] Ronald Mills MD [address] [facility] [address] [place] [address] documented as of this encounter [...] as of this encounter Care Teams Linux Administrator Relationship Specialty Start Date End Date Caitlyn Bowie MD [address] [address] PCP - General Internal Medicine 05/06/21 documented as of this encounter
--- OUTSIDE RECORDS SUMMARY | 2024-10-17 18:10 | XMS_ITS | Encounter Summary ---
Author Organization [facility] and [facility] Address [address] [place] [address] Care Team Providers Care Patient Accounts Specialist Name Role Phone Caitlyn Bowie MD Primary Care Provider [phone]- [phone] Encounter Details Date Type Department Care Team (Late st Contact Info) Description 08/21/2017 Scanned Document [facility] Health Information Management [address] [place] [address] External, Provider Social History Tobacco Use Types [...] Description 10/18/2024 10:30 AM EDT Office Visit [facility] [address] [place] [address] Alfredo Michaud Jr., EMELIA [address] [place] [address] [place] [address] 10/31/2024 1:00 PM EDT Office Visit Hematology Program at [address] - [address] [place] [address] Ronald Mills MD [address] [place] [address] documented as of this encounter [...] as of this encounter Care Teams Patient Accounts Specialist Relationship Specialty Start Date End Date Caitlyn Bowie MD 34[address] [facility] 1 [place] [address] PCP - General Internal Medicine 05/06/21 Henry Kelly MD Pulmonary Department [address] [facility] [place] [address] Physician Pulmonary Disease 09/06/17 06/22/20 documented as of this encounter
--- OUTSIDE RECORDS SUMMARY | 2024-10-17 18:10 | XMS_ITS | Encounter Summary ---
Author Organization [facility] and [facility] Address [address] [place] [address] Care Team Providers Care Low Heel Builder Name Role Phone Caitlyn Bowie MD Primary Care Provider [phone]- [phone] Encounter Details Date Type Department Care Team (Late st Contact Info) Description 04/10/2021 Scanned Document INTERFACE DEFAULT [address] [place] [address] System, Provider Not In Social History Tobacco [...] Description 10/18/2024 10:30 AM EDT Office Visit [facility] [address] [place] [address] Alfredo Michaud Jr., PA [address] [place] [address] [place] [address] 10/31/2024 1:00 PM EDT Office Visit [facility] at [address] - [address] [place] [address] Ronald Mills MD [address] [place] [address] documented as of this encounter Procedures Procedure Name Priority Date/Time Associated Diagnosis Comments XRAY RESULT SCAN 04/10/2021 12:00 AM EDT CARDIAC EKG RESULT SCAN 04/10/2021 12:00 AM EDT CARDIAC EKG RESULT SCAN Routine 04/10/2021 documented in this encounter Results * CARDIAC EKG RESULT SCAN (04/10/2021 12:00 AM EDT) 04/10/2021 Provider Not In System CV CARDIAC REPORT (CVR) F inal Result * Cardiac EKG Result Scan (04/10/2021) us Provider External CV CARDIAC REPORT (CVR) Final Result * XRAY RESULT SCAN (04/10/2021 12:00 AM EDT) 04/10/2021 Provider Not In System IMG SCAN REPORTS Edited R esult - Final documented in this encounter Visit Diagnoses Not on filedocumented in this encounter Additional Health Concerns Infection Onset Date Last Indicated Resolved Time COVID-19 03/05/2022 03/05/2022 03/15/2022 7:18 PM EDT Assessment Noted Time PHQ-9 Depression Total Score: 2 11/07/19 19 2:06 PM EDT documented as of this encounter Care Teams Low Heel Builder Relationship Specialty Start Date End Date Caitlyn Bowie MD [address] [address] PCP - General Internal Medicine 05/06/21 documented as of this encounter
--- OUTSIDE RECORDS SUMMARY | 2024-10-17 18:10 | XMS_ITS | Encounter Summary ---
Author Organization [facility] and [facility] Address [address] [place] [address] Care Team Providers Care Professor Of Journalism Name Role Phone Caitlyn Bowie MD Primary Care Provider [phone]- [phone] Encounter Details Date Type Department Care Team (Late st Contact Info) Description 03/24/2021 Scanned Document INTERFACE DEFAULT [address] [place] [address] System, Provider Not In Social History Tobacco [...] Office Visit [facility] [address] [place] [address] Alfredo Michaud Jr., PA [address] [place] [address] [place] [address] 10/31/2024 1:00 PM EDT Office Visit [facility] at [address] - [address] [facility] [place] [address] Ronald Mills MD [address] [facility] [address] [place] [address] documented as of this encounter Visit Diagnoses Not on filedocumented in this encounter Additional Health Concerns Infection Onset Date Last Indicated Resolved Time COVID-19 03/05/2022 03/05/2022 03/15/2022 7:18 PM EDT Assessment Noted Time PHQ-9 Depression Total Score: 2 11/07/19 19 2:06 PM EDT documented as of this encounter Care Teams Professor Of Journalism Relationship Specialty Start Date End Date Caitlyn Bowie MD [address] [address] PCP - General Internal Medicine 05/06/21 documented as of this encounter
--- OUTSIDE RECORDS SUMMARY | 2024-10-17 18:10 | XMS_ITS | Encounter Summary ---
Author Organization [facility] Address [address] [place] [address] Care Team Providers Care Database Manager Name Role Phone Victorino Martin MD Primary Care Provider UnavailSharon Kimbrough Primary Care Provider Unava ilable Brennan Burnett MD Primary Care Provider Unavailab Hayden Montes MD Unavailable [phone] Pallavi Flood NP Unavailable [phone] Caitlyn Bowie MD Primary Care Provider Unava chhaya Reason for Visit * Reason Onset Date Comments Faxed Refill 02/05/2018 Encounter Details Date Type Department Care Team Description 02/05/2018 Telephone Pulmonology - [address] [place] [address] Henry Kelly MD Faxed Refill [...] No Patients current insurance carrier is: Payor: MEDICARE-Medityplus / Plan: MEDICARE-Medityplus / Product Type: MEDICARE [id number] documented in this encounter Plan of Treatment Not on file documented as of this encounter Visit Diagnoses Diagnosis Mixed simple and mucopurulent chronic bronchitis (HCC) Other chronic bronchitis documented in this encounter Care Teams Database Manager Relationship Specialty Start Date End Date Victorino Martin MD PCP - General Internal Medicine 12/21/17 08/01/18 Sharon Vides PCP - General Internal Medicine 08/02/18 05/26/20 Brennan Burnett MD PCP - General Internal Medicine 05/27/20 12/07/21 Caitlyn Bowie MD [address] [place] [address] PCP - General Internal Medicine 12/08/21 Hayden Shah MD [address] [place] [address] Specialist Cardiovascular Disease 09/01/20 Pallavi Flood, ALON [address] [place] [address] Cardiology 09/01/20 documented as of this encounter
--- OUTSIDE RECORDS SUMMARY | 2024-10-17 18:10 | XMS_ITS | Clinical Summary ---
Author Organization [address] Address [address] [place] [address] Phone Care Team Providers Care Body Rolling Machine Tender Name Role Phone Caitlyn Bowie MD Primary Care Provider +1- [phone] Allergies Active Allergy Reactions Criticality Noted Date [...] Encounters Date Type Department Care Team Description 09/30/2024 Orders Only [facility] [address] [place] [address] Adalgisa Whitney MD KANDY (obstructive sleep apnea) 09/30/2024 Orders Only [address] [place] [address] Adalgisa Whitney MD KANDY (obstructive sleep apnea) (Primary Dx) 09/24/2024 Telephone [facility] [address] [place] [address] Ronald Mills MD Triage; Results 09/23/2024 Scanned Document INTERFACE DEFAULT 20 [place] [address] System, Provider Not In 09/15/2024 Scanned Document INTERFACE DEFAULT 20 [place] [address] System, Provider Not In 09/09/2024 Scanned Document INTERFACE DEFAULT 20 [place] [address] System, Provider Not In 08/30/2024 Abstract [facility] [address] [place] [address] Adalgisa Whitney MD 08/08/2024 Scanned Document INTERFACE DEFAULT 20 [place] [address] System, Provider Not In from Last 3 Months Immunizations Name Administration [...] Description 10/18/2024 10:30 AM EDT Office Visit [facility] [address] [place] [address] Alfredo Michaud Jr., EMELIA [address] [place] [address] [place] [phone] 10/31/2024 1:00 PM EDT Office Visit [facility] at [address] - [address] [place] [address] Ronald Mills MD [address] [place] [address] Health Maintenance Due Date Last Done Comments HIV screening 1958 Shingles vaccine (Shingrix) (1 of 2 - Shingrix (RZV) 2 Dose Standard Series) 1993 RSV Immunization (1 - 1-dose 75+ series) 2018 Lipid disorder screening 03/18/2021 03/18/2016 Covid-19 vaccine series ( season) 2024 09/03/2020, 08/06/2020 Influenza vaccine 03/10/2025 06/12/2024, , 05/13/2022, Additional history exists Diabetes screening 04/05/2025 04/05/2022, 0 09/28/2021, 12/16/2018, Additional history exists Tetanus adult (Td q 10,TDAP once) 02/27/2026 02/28/2016, 02/17/2016 Breast cancer screening Discontinued 04/25/2013 Osteoporosis screening (bone density) Completed 05/10/2017 Pneumococcal Vaccine (50+ years) Completed 08/31/2021, 03/25/2016, 09/17/2015, Additional history exists Cervical cancer screening Discontinued Meningococcal Vaccine Aged Out No chavez carmen eligible based on patient's age to complete this topic Procedures Procedure Name Priority Date/Time Associated Diagnosis Comments LAB SCAN 09/23/2024 12:00 AM EDT LAB SCAN 09/23/2024 12:00 AM EDT LAB SCAN 09/15/2024 12:00 AM EST LAB SCAN 09/15/2024 12:00 AM EST LAB SCAN 09/09/2024 12:00 AM EST LAB SCAN 09/09/2024 12:00 AM EST LAB SCAN 08/08/2024 12:00 AM EST LAB SCAN 08/08/2024 12:00 AM EST COMPREHENSIVE METABOLIC PANEL Routine 04/05/2022 1:13 PM [...] Recently Relevant to Health Maintenance Results * Lab Scan (09/23/2024 12:00 AM EDT) Only the most recent of8 resultswithin the time period is included. us Provider Not In System LAB BLOOD ORDERABLES Carmina l Result * (ABNORMAL) Comprehensive metabolic panel (04/05/2022 1:13 PM EDT) Sodium 138 136 - 144 mmol/L 04/05/2022 1:43 PM EDT [facility] DEPARTMENT OF LABORATORY MEDICINE [facility] Potassium 4.7 3.3 - 5.3 mmol/L 04/05/2022 1:43 PM EDT [facility] DEPARTMENT OF LABORATORY MEDICINE [facility] Chloride 100 98 - 107 mmol/L 04/05/2022 1:43 PM EDT [facility] DEPARTMENT OF LABORATORY MEDICINE [facility] CO2 30 20 - 30 mmol/L 04/05/2022 1:43 PM EDT [facility] DEPARTMENT OF LABORATORY MEDICINE [facility] Anion Gap 8 7 - 17 04/05/2022 1:43 PM EDT [facility] DEPARTMENT OF LABORATORY MEDICINE [facility] Glucose 115(H) 70 - 100 mg/dL 04/05/2022 1:43 PM EDT [facility] DEPARTMENT OF LABORATORY MEDICINE [facility] BUN 16 8 - 23 mg/dL 04/05/2022 1:43 PM EDT [facility] DEPARTMENT OF LABORATORY MEDICINE [facility] Creatinine 0.89 0.40 - 1.30 mg/dL 04/05/2022 1:43 PM EDT [facility] DEPARTMENT LABORATORY MEDICINE [facility] Calcium 10.5(H) 8.8 - 10.2 mg/dL 04/05/2022 1:43 PM EDT [facility] DEPARTMENT LABORATORY MEDICINE [facility] BUN/Creatinine Ratio 18.0 8.0 - 23.0 03/11 1:43 PM EDT [facility] DEPARTMENT LABORATORY MEDICINE [facility] Total Protein 7.0 6.6 - 8.7 g/dL 04/05/2022 1:43 PM EDT [facility] DEPARTMENT LABORATORY MEDICINE [facility] Albumin 4.2 3.6 - 4.9 g/dL 04/05/2022 1:43 PM EDT [facility] DEPARTMENT LABORATORY MEDICINE [facility] Total Bilirubin 0.6 <=1.2 mg/dL 04/05/2022 1:43 PM EDT [facility] DEPARTMENT OF LABORATORY MEDICINE [facility] Alkaline Phosphatase 58 9 - 122 U/L [facility] Alanine Aminotransferase (ALT) 19 10 - 35 U/L 04/05/2022 1:43 PM EDT [facility] DEPARTMENT LABORATORY MEDICINE [facility] Comment:Calcium dobesilate c an cause artificially low ALT results at therapeutic concentrations Aspartate Aminotransferase (AST) 26 10 - 35 U/L 04/05/2022 1:43 PM EDT [facility] DEPARTMENT OF LABORATORY MEDICINE [facility] Globulin 2.8 2.3 - 3.5 g/dL 04/05/2022 1:43 PM EDT [facility] DEPARTMENT LABORATORY MEDICINE [facility] A/G Ratio 1.5 1.0 - 2.2 04/05/2022 1:43 PM EDT [facility] DEPARTMENT LABORATORY MEDICINE [facility] AST/ALT Ratio 1.4 See Comment 04/05/2022 1:43 PM EDT [facility] Comment: Adult with mild elevations of transaminases (< 5 times upper limit of normal): AST/ALT > 2 suggests alcoholic liver injury AST/ALT < 1 suggests non-alcoholic fatty liver disease (NAFLD) (healthy): AST/ALT can be > 3 on day 0 AST/ALT < 2 by day 5 The thresholds provided focus on the most common etiologies of elevated serum transaminase levels and the associated alteration of AST:ALT ratios; they are not intended to exclude other feasible and clinically appropriate possibilities eGFR (Creatinine) >60 >=60 mL/min/1.7 3m2 04/05/2022 1:43 PM EDT [facility] DEPARTMENT OF LABORATORY MEDICINE [facility] Comment:Estimated glomerular filtration rate (eGFR) was [...] BLOOD ORDERABLES Final Resul t [facility] DEPARTMENT OF LABORATORY MEDICINE [facility] [address] [place] [address] * Bone Density Result Scan (05/10/2017) us Historical Provider IMG SCAN REPORTS Final Resul t * (ABNORMAL) Lipid panel (03/18/2016 2:55 PM EDT) Cholesterol 229(H) 115 - 199 mg/dL 03/18/2016 8:11 PM EDT [facility] HDL 83 >=40 mg/dL 03/18/2016 8:11 PM EDT [facility] Triglycerides 71 30 - 150 mg/dL 03/18/2016 8:11 PM EDT [facility] Chol/HDL Ratio 2.8 <=5 03/18/2016 8:11 PM EDT [facility] Comment:Cholesterol/HDL rati o cannot be calculated. LDL Calculated 132 See Comment mg/dL 03/18/2016 8:11 PM EDT [facility] Comment: <100: Optimal 100-129: Near optimal/above optimal 130-159: Borderline high risk 160-189: High risk ??>=190: Very high risk Blood specimen (specimen) Venipuncture / Unknown 03/18/2016 2:55 PM EDT 03/18/2016 3:17 PM EDT Narrative [facility] - 03/18/2016 8:11 PM EDT $18.27 us Sangeeta Garces MD LAB BLOOD ORDERABLES Fin al Result Performing Organization Address City/State/[facility] Co de Phone Number [facility] [address] [place] [address] * MAMMOGRAPHY REPORT (04/25/2013 6:47 AM EDT) 04/25/2013 6:47 AM EDT us Provider Not In System IMG SCAN REPORTS Final Re sult from Last 3 Months or Most Recently Relevant to Health Maintenance Insurance MEDICARE [facility] MEDICARE [facility] MEDICARE [facility] MEDICARE MEDICARE [facility] Advance Directives * Full ACLS (Latest Code Status on File) Date Activated Date Inactivated Comments 12/15/2018 7:13 PM 12/16/2018 6:09 PM * Full Interventions Date Activated Date Inactivated Comments 03/18/2016 6:34 PM 03/19/2016 6:40 PM Care Teams Body Rolling Machine Tender Relationship Specialty Start Date End Date Caitlyn Bowie MD [address] [address] PCP - General Internal Medicine 05/06/21
--- OUTSIDE RECORDS SUMMARY | 2024-10-17 18:10 | XMS_ITS | Encounter Summary ---
Author Organization [facility] Address [address] [place] [address] Care Team Providers Care Assurance Manager Name Role Phone Victorino Martin MD Primary Care Provider Sharon Odonnell Primary Care Provider Brennan Castro MD Primary Care Provider Unavailab Hayden Montes MD Unavailable [phone] Pallavi Flood NP Unavailable [phone] Caitlyn Bowie MD Primary Care Provider Johnathon shaver Encounter Details Date Type Department Care Team Description 02/06/2018 Telephone Pulmonology - [address] [place] [address] Henry Kelly MD Social History [...] on filedocumented in this encounter Care Teams Assurance Manager Relationship Specialty Start Date End Date Victorino Martin MD PCP - General Internal Medicine 12/21/17 08/01/18 Sharon Vides PCP - General Internal Medicine 08/02/18 05/26/20 Brennan Burnett MD PCP - General Internal Medicine 05/27/20 12/07/21 Caitlyn Bowie MD [address] [place] [address] PCP - General Internal Medicine 12/08/21 Hayden Shah MD [address] [place] [address] Specialist Cardiovascular Disease 09/01/20 Pallavi Flood NP [address] [place] [address] Cardiology 09/01/20 documented as of this encounter
--- OUTSIDE RECORDS SUMMARY | 2024-10-17 18:10 | XMS_ITS | Encounter Summary ---
Author Organization [facility] Address [address] [place] [address] Care Team Providers Care Finished Hardware Erector Name Role Phone Victorino Martin MD Primary Care Provider UnavailSharon Kimbrough Primary Care Provider Unava ilable Brennan Burnett MD Primary Care Provider Unavailab Hayden Montes MD Unavailable [phone] Pallavi Flood NP Unavailable [phone] Caitlyn Bowie MD Primary Care Provider Unava shenaable Reason for Visit * Reason Onset Date Comments lab test 04/04/2018 Encounter Details Date Type Department Care Team Description 04/04/2018 Telephone Pulmonology - [address] [place] [address] Henry Kelly MD lab test [...] on filedocumented in this encounter Care Teams Finished Hardware Erector Relationship Specialty Start Date End Date Victorino Martin MD PCP - General Internal Medicine 12/21/17 08/01/18 Sharon Vides PCP - General Internal Medicine 08/02/18 05/26/20 Brennan Burnett MD PCP - General Internal Medicine 05/27/20 12/07/21 Caitlyn Bowie MD [address] [place] [address] PCP - General Internal Medicine 12/08/21 Hayden Shah MD [address] [place] [address] Specialist Cardiovascular Disease 09/01/20 Pallavi Flood NP [address] [place] [address] Cardiology 09/01/20 documented as of this encounter
--- OUTSIDE RECORDS SUMMARY | 2024-10-17 18:10 | XMS_ITS | Patient Health Record ---
Author Organization [facility] Address [address] [facility] [address] [place] [address] Care Team Providers Care Bariatric Program Coordinator Name Role Phone EVELIN RAMSAY Primary Care Provider Yenny Hou Unavailable [phone] Allergies Allergen (clinical drug ingredient) Drug/Non Drug [...] UROBILINOGEN Neg BILIRUBIN Neg BLOOD Neg Urinalysis, Complete-[id number] Reviewed date:05/04/2024 11:35:42 PM Interpretation: Performing Lab:[facility], [address] [facility], [place], Phone - [phone], Director - Arely Notes/Report: Specific Shevlin 1.009 1.005-1.030 pH 6.5 5.0-7.5 Urine-Color Yellow [...] Bacteria None seen None seen/Few Urine Culture, Routine-[id number] Reviewed date:05/04/2024 11:35:22 PM Interpretation: Performing Lab:[facility], [address] [place] [address], Phone - [phone], Director - MDJodry Notes/Report: Urine Culture, Routine [...] 11:35:04 PM Interpretation: Performing Lab:[facility], [address] [facility], [place], Phone - [phone], Director - MDJodry Notes/Report: Reason For Referral [...] Synthroid 25MCG 1 ORAL daily for -3 [facility] 06/10/2014 Active ZyrTEC Allergy 10MG [...] 1 ORAL at bedtime fo r -3 [facility] 06/10/2014 Active Meclizine HCl 25 MG 1 tablet as needed Orally [facility] 06/10/2014 Active Albuterol Sulfate (2.5 MG/3ML)0.083% Inhalation 4 x a day prn 06/10/2014 Active Valium 5MG 1 tablet as needed O RAL at bedtime, 1/2 tab prn during the day [facility] 06/10/2014 Active Social History Tobacco [...] Status Risk Notes Problem Postmenopausal atrophic vaginitis (94368456) Postmenopausal atrophic vaginitis (N95.2) Active confirmed Problem Age-related osteoporosis (668075598) Age-related osteoporosis without current pathological fracture (M81.0) Active confirmed Problem Urgent desire to urinate (74356647) Urgency of urination (R39.15) Active confirmed Problem 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 Problem Chronic systolic heart failure (068646988) Chronic systolic (congestive) heart failure (I50.22) Active confirmed Problem Chronic obstructive pulmonary disease (77458436) Chronic obstructive pulmonary disease, unspecified (J44.9) Active confirmed Problem Functional urinary incontinence (795194535) Functional 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) Active confirmed Problem Personal history of primary malignant neoplasm of bronchus (078202809) 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) Active confirmed Vital Signs Temperature 97.7 degrees Fahrenheit 07/18/2024 Blood pressure diastolic 62 mm Hg 07/18/2024 Height 63 in 07/18/2024 Blood pressure systolic 102 mm Hg 07/18/2024 Weight 126 lbs 07/18/2024 BMI 22.32 kg/m2 07/18/2024 Encounters Encounter Location Date Provider Diagnosis Total [address] [address] 05/03/2024 Yenny Elizalde Urgency of urination R39.15 and Abscess of vulva N76.[address] [address] 05/10/2024 Yenny Elizalde Abscess of vulva N76 .[address] [address] 05/17/2024 Yenny Elizalde Abscess of vulva N76 .[address] [address] 07/09/2024 Yenny Elizalde Urgency of urination R39.15 ; Acute vaginitis N76.0 and Postmenopausal atrophic vaginitis N95.[address] [address] 07/18/2024 Yennydorothy Lovettva Encounter for screening mammogram for malignant neoplasm of breast Z12.31 and Mastodynia N64.[address] [address] 05/10/2024 Yenny Elizalde Total [address] [address] 05/13/2024 Yenny Elizalde Total [address] [place] [address] 06/11/2024 Yenny Roweueva Assessments Encounter Date Diagnosis [...] [facility] AND DISCUSSED THIS [...] Date MEDICARE [address] [place]EVES [id number] [phone] [id number] CINDA WATSON Self - patient is the insured [employer] [address] [place] [address] [id number] 3 CINDA WATSON Self - patient is [...]
--- OUTSIDE RECORDS SUMMARY | 2024-10-17 18:10 | XMS_ITS | Encounter Summary ---
Author Organization [facility] Address [address] [place] [address] Care Team Providers Care Case Checker Name Role Phone Caitlyn Bowie MD Primary Care Provider [phone]- [phone] Encounter Details Date Type Department Care Team (Late st Contact Info) Description 02/24/2021 Scanned Document INTERFACE DEFAULT [address] [place] [address] System, Provider Not In Social History Tobacco [...] Description 10/18/2024 10:30 AM EDT Office Visit [facility] [address] [place] [address] Alfredo Michaud Jr., PA [address] [place] [address] [place] [address] 10/31/2024 1:00 PM EDT Office Visit [facility] at [address] - [address] [facility] [place] [address] Ronald Mills MD [address] [place] [address] documented as of this encounter [...] documented as of this encounter Care Teams Case Checker Relationship Specialty Start Date End Date Caitlyn Bowie MD [address] [facility] 1 [place] [address] PCP - General Internal Medicine 05/06/21 documented as of this encounter
--- OUTSIDE RECORDS SUMMARY | 2024-10-17 18:10 | XMS_ITS | Encounter Summary ---
Author Organization [facility] Address [address] [place] [address] Care Team Providers Care Scooter Mechanic Name Role Phone Caitlyn Bowie MD Primary Care Provider [phone]- [phone] Encounter Details Date Type Department Care Team (Late st Contact Info) Description 04/13/2021 Scanned Document INTERFACE DEFAULT [address] [place] [address] System, Provider Not In Social History Tobacco [...] Description 10/18/2024 10:30 AM EDT Office Visit [facility] [address] [place] [address] Alfredo Michaud Jr., PA [address] [place] [address] [place] [address] 10/31/2024 1:00 PM EDT Office Visit [facility] at [address] - [address] [facility] [place] [facility] [place] [address] Ronald Mills MD [address] [place] [address] documented as of this encounter [...] documented as of this encounter Care Teams Scooter Mechanic Relationship Specialty Start Date End Date Caitlyn Bowie MD [address] [address] PCP - General Internal Medicine 05/06/21 documented as of this encounter
--- OUTSIDE RECORDS SUMMARY | 2024-10-17 18:10 | XMS_ITS | Encounter Summary ---
Author Organization [facility] Address [address] [place] [address] Care Team Providers Care Loss Prevention Consultant Name Role Phone Caitlyn Bowie MD Primary Care Provider [phone]- [phone] Encounter Details Date Type Department Care Team (Late Contact Info) Description 06/07/2017 Scanned Document [facility] Health Information Management [address] [place] [address] External, Provider Social History Tobacco Use Types [...] Description 10/18/2024 10:30 AM EDT Office Visit [facility] [address] [place] [address] Alfredo Michaud Jr., EMELIA [address] [place] [address] [place] [address] 10/31/2024 1:00 PM EDT Office Visit Hematology Program at [address] - [address] [place] [address] Ronald Mills MD [address] [place] [address] documented as of this encounter [...] of this encounter Care Teams Loss Prevention Consultant Relationship Specialty Start Date End Date Caitlyn Bowie MD [address] [facility] 1 [place] [address] PCP - General Internal Medicine 05/06/21 Henry Kelly MD Pulmonary Department [address] [facility] [place] [address] Physician Pulmonary Disease 09/06/17 06/22/20 documented as of this encounter
--- OUTSIDE RECORDS SUMMARY | 2024-10-17 18:10 | XMS_ITS | Encounter Summary ---
Author Organization [facility] Address [address] [place] [address] Care Team Providers Care Loss Prevention Investigator Name Role Phone Victorino Martin MD Primary Care Provider UnavailSharon Kimbrough Primary Care Provider Unava ilable Brennan Burnett MD Primary Care Provider Unavailab Hayden Montes MD Unavailable [phone] Pallavi Flood NP Unavailable [phone] Caitlyn Bowie MD Primary Care Provider Unava chhaya Reason for Visit * Reason Comments E-prescribe Rx Request Encounter Details Date Type Department Care Team Description 04/26/2018 Refill Pulmonology [address] [place] [address] Henry Kelly MD E-prescribe Rx [...] NO Patients current insurance carrier is: Payor: MEDICARE-[employer] / [place] / Product Type: MEDICARE [id number] documented in this encounter Plan of Treatment Not on file documented as of this encounter Visit Diagnoses Not on filedocumented in this encounter Care Teams Loss Prevention Investigator Relationship Specialty Start Date End Date Victorino Martin MD PCP - General Internal Medicine 12/21/17 08/01/18 Sharon Vides PCP - General Internal Medicine 08/02/18 05/26/20 Brennan Burnett MD PCP - General Internal Medicine 05/27/20 12/07/21 Caitlyn Bowie MD [address] [place] [address] PCP - General Internal Medicine 12/08/21 Hayden Shah MD [address] [place] [address] 0007507 Specialist Cardiovascular Disease 09/01/20 Pallavi Flood NP [address] [place] [address] Cardiology 09/01/20 documented as of this encounter
--- OUTSIDE RECORDS SUMMARY | 2024-10-17 18:10 | XMS_ITS | Encounter Summary ---
Author Organization [facility] Address [address] [place] [address] Care Team Providers Care Supervisor Hospitality House Name Role Phone Caitlyn Bowie MD Primary Care Provider [phone]- [phone] Encounter Details Date Type Department Care Team (Late st Contact Info) Description 08/09/2017 Scanned Document Cardiovascular Medicine at [address] [place] [address] System, Provider Not In Social History Tobacco [...] Description 10/18/2024 10:30 AM EDT Office Visit [facility] [address] [place] [address] Alfredo Michaud Jr., EMELIA [address] [place] [address] [place] [address] 10/31/2024 1:00 PM EDT Office Visit Hematology Program at [address] - [address] [place] [address] Ronald Mills MD [address] [facility] [address] [place] [address] documented as of this encounter [...] as of this encounter Care Teams Supervisor Hospitality House Relationship Specialty Start Date End Date Caitlyn Bowie MD [address] [facility] 1 [place] [address] PCP - General Internal Medicine 05/06/21 Henry Kelly MD Pulmonary Department [address] [facility] [place] [address] Physician Pulmonary Disease 09/06/17 06/22/20 documented as of this encounter
--- OUTSIDE RECORDS SUMMARY | 2024-10-17 18:10 | XMS_ITS | Encounter Summary ---
Author Organization [facility] Address [address] [place] [address] Care Team Providers Care Art Teacher Name Role Phone Caitlyn Bowie MD Primary Care Provider +1- [phone] Encounter Details Date Type Department Care Team (Late st Contact Info) Description 03/22/2021 Scanned Document INTERFACE DEFAULT [address] [place] [address] System, Provider Not In Social History Tobacco [...] Description 10/18/2024 10:30 AM EDT Office Visit [facility] [address] [place] [address] Alfredo Michaud Jr., PA [address] [place] [address] [place] [address] 10/31/2024 1:00 PM EDT [facility] Visit [facility] [address] - NP7-301 [facility] [place] [address] Ronald Mills MD 240 [facility] [address] [place] [address] documented as of this encounter Visit Diagnoses Not on filedocumented in this encounter Additional Health Concerns Infection Onset Date Last Indicated Resolved Time COVID-19 03/05/2022 03/05/2022 03/15/2022 7:18 PM EDT Assessment Noted Time PHQ-9 Depression Total Score: 2 11/07/19 19 2:06 PM EDT documented as of this encounter Care Teams Art Teacher Relationship Specialty Start Date End Date Caitlyn Bowie MD [address] [address] PCP - General Internal Medicine 05/06/21 documented as of this encounter
--- OUTSIDE RECORDS SUMMARY | 2024-10-17 18:10 | XMS_ITS | Encounter Summary ---
Author Organization [facility] Address [address] [place] [address] Care Team Providers Care Pack Operator Name Role Phone Caitlyn Bowie MD Primary Care Provider +1- [phone] Encounter Details Date Type Department Care Team (Late Contact Info) Description 01/26/2018 Scanned Document [facility] Health Information Management [address] [place] [address] External, Provider Social History Tobacco Use Types [...] Description 10/18/2024 10:30 AM EDT Office Visit [facility] [address] [place] [address] Alfredo Michaud Jr., EMELIA [address] [place] [address] [place] [address] 10/31/2024 1:00 PM EDT Office Visit Hematology Program at [address] - NP7-[address] [place] [address] Ronald Mills MD [address] [place] [address] [place] [address] documented as of this encounter Visit Diagnoses Not on filedocumented in this encounter Additional Health Concerns Infection Onset Date Last Indicated Resolved Time COVID-19 03/05/2022 03/05/2022 03/15/2022 7:18 PM EDT documented as of this encounter Care Teams Pack Operator Relationship Specialty Start Date End Date Caitlyn Bowie MD 3400 [facility] 1 [place] [address] PCP - General Internal Medicine 05/06/21 Henry Kelly MD Pulmonary Department [address] [place] [address], [address] [place] [address] Physician Pulmonary Disease 09/06/17 06/22/20 documented as of this encounter
--- OUTSIDE RECORDS SUMMARY | 2024-10-17 18:10 | XMS_ITS | Encounter Summary ---
Author Organization [facility] Address [address] [place] [address] Care Team Providers Care District Wire Chief Name Role Phone Sharon Vides Primary Care Provider Unava ilable Brennan Burnett MD Primary Care Provider Unavailab Hayden Montes MD Unavailable [phone] Pallavi Flood NP Unavailable [phone]- [phone] Caitlyn Bowie MD Primary Care Provider Unava ilable Reason for Visit * Reason Onset Date Comments other 12/13/2019 Encounter Details Date Type Department Care Team Description 12/13/2019 Telephone General Surgery [address] [address] Norma Mendoza MD [address] [place] [address] [phone] other Social History Tobacco Use Types Packs/Day [...] and put pt in with [facility]-- opening [id number]-- pt said very painful- possibly infected and [...] Bowie MD [address] [place] [address] PCP - General Internal Medicine 12/08/21 Hayden Shah MD [address] [place] [address] Specialist Cardiovascular Disease 09/01/20 Pallavi Flood NP [address] [place] [address] Cardiology 09/01/20 documented as of this encounter
--- OUTSIDE RECORDS SUMMARY | 2024-10-17 18:10 | XMS_ITS | Encounter Summary ---
Author Organization [facility] Address [address] [place] [address] Care Team Providers Care Hand Embroiderer Name Role Phone Caitlyn Bowie MD Primary Care Provider +1- [phone] Encounter Details Date Type Department Care Team (Late st Contact Info) Description 04/12/2021 Scanned Document INTERFACE DEFAULT [address] [place] [address] System, Provider Not In Social History Tobacco [...] Description 10/18/2024 10:30 AM EDT Office Visit [facility] [address] [place] [address] Alfredo Michaud Jr., PA [address] [place] [address] [place] [address] 10/31/2024 1:00 PM EDT Office Visit [facility] at [address] - NP7-301 [facility] [place] [address] Ronald Mills MD 240 [facility] [address] [place] [address] documented as of this encounter [...] as of this encounter Care Teams Hand Embroiderer Relationship Specialty Start Date End Date Caitlyn Bowie MD [address] [address] PCP - General Internal Medicine 05/06/21 documented as of this encounter
--- OUTSIDE RECORDS SUMMARY | 2024-10-17 18:10 | XMS_ITS | Encounter Summary ---
Author Organization [facility] Address [address] [place] [address] Care Team Providers Care Windows 7 Deployment Lead Name Role Phone Sharon Vides Primary Care Provider Unava ilable Brennan Burnett MD Primary Care Provider Unavailab Hayden Montes MD Unavailable Pallavi Flood NP Unavailable [phone]- [phone] Caitlyn Bowie MD Primary Care Provider Unava ilable Reason for Visit * Reason Onset Date Comments Provider Call Back 04/26/2019 Encounter Details Date Type Department Care Team Description 04/26/2019 Telephone Plastic Surgery [facility] [address] [place] [address] Landen Aaron DO Provider Call [...] . 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 documented in this encounter Plan of Treatment Not on file documented as of this encounter Visit Diagnoses Not on filedocumented in this encounter Care Teams Windows 7 Deployment Lead Relationship Specialty Start Date End Date Sharon Vides PCP - General Internal Medicine 08/02/18 05/26/20 Brennan Burnett MD PCP - General Internal Medicine 05/27/20 12/07/21 Caitlyn Bowie MD [address] [place] [address] PCP - General Internal Medicine 12/08/21 Hayden Shah MD [address] [place] [address] Specialist Cardiovascular Disease 09/01/20 Pallavi Flood NP [address] [place] [address] Cardiology 09/01/20 documented as of this encounter
--- OUTSIDE RECORDS SUMMARY | 2024-10-17 18:10 | XMS_ITS | Encounter Summary ---
Author Organization [facility] Address [address] [place] [address] Care Team Providers Care Glory Hole Tender Name Role Phone Caitlyn Bowie MD Primary Care Provider +1- [phone] Encounter Details Date Type Department Care Team (Late st Contact Info) Description 04/16/2021 Scanned Document INTERFACE DEFAULT [address] [place] [address] System, Provider Not In Social History Tobacco [...] Description 10/18/2024 10:30 AM EDT Office Visit [facility] [address] [place] [address] Alfredo Michaud Jr., PA [address] [place] [address] [place] [address] 10/31/2024 1:00 PM EDT Office Visit [facility] at [address] - NP7-301 [facility] [place] [address] Ronald Mills MD 240 [facility] [address] [place] [address] documented as of this encounter [...] documented as of this encounter Care Teams Glory Hole Tender Relationship Specialty Start Date End Date Caitlyn Bowie MD [address] [address] PCP - General Internal Medicine 05/06/21 documented as of this encounter
--- OUTSIDE RECORDS SUMMARY | 2024-10-17 18:10 | XMS_ITS | Encounter Summary ---
Author Organization [facility] Address [address] [place] [address] Care Team Providers Care Supervisor Twisting Department Name Role Phone Caitlyn Bowie MD Primary Care Provider +1- [phone] Encounter Details Date Type Department Care Team (Late st Contact Info) Description 04/21/2021 Scanned Document INTERFACE DEFAULT [address] [place] [address] System, Provider Not In Social History Tobacco [...] Description 10/18/2024 10:30 AM EDT Office Visit [facility] [address] [place] [address] Alfredo Michaud Jr., PA [address] [place] [address] [place] [address] 10/31/2024 1:00 PM EDT Office Visit [facility] at [address] - NP7-301 [facility] [place] [address] Ronald Mills MD [address] [place] [address] documented as of this encounter [...] End Date Caitlyn Bowie MD [address] [address] PCP - General Internal Medicine 05/06/21 documented as of this encounter
--- OUTSIDE RECORDS SUMMARY | 2024-10-17 18:10 | XMS_ITS | Encounter Summary ---
Author Organization [facility] Address [address] [place] [address] Care Team Providers Care Assessment Specialist Name Role Phone Caitlyn Bowie MD Primary Care Provider +1- [phone] Encounter Details Date Type Department Care Team (Late st Contact Info) Description 02/25/2021 Scanned Document INTERFACE DEFAULT [address] [place] [address] System, Provider Not In Social History Tobacco [...] Description 10/18/2024 10:30 AM EDT Office Visit [facility] [address] [place] [address] Alfredo Michaud Jr., PA [address] [place] [address] [place] [address] 10/31/2024 1:00 PM EDT Office Visit [facility] at [address] - NP7-[address] [facility] [address] Ronald Mills MD [address] [place] [address] documented as of this encounter [...] as of this encounter Care Teams Assessment Specialist Relationship Specialty Start Date End Date Caitlyn Bowie MD 3400 [facility] 1 [place] [address] PCP - General Internal Medicine 10/28/21 documented as of this encounter
--- OUTSIDE RECORDS SUMMARY | 2024-10-17 18:10 | XMS_ITS | Encounter Summary ---
Author Organization [facility] Address [address] [place] [address] Care Team Providers Care Bilingual Middle School Teacher Name Role Phone Caitlyn Bowie MD Primary Care Provider +1- [phone] Encounter Details Date Type Department Care Team (Late st Contact Info) Description 03/01/2021 Scanned Document INTERFACE DEFAULT [address] [place] [address] System, Provider Not In Social History Tobacco [...] Description 10/18/2024 10:30 AM EDT Office Visit [facility] [address] [place] [address] Alfredo iMchaud Jr., PA [address] [place] [address] [place] [address] 10/31/2024 1:00 PM EDT Office Visit [facility] at [address] - NP7-301 [facility] [place] [address] Ronald Mills MD 240 [facility] [address] [place] [address] documented as of this encounter Visit Diagnoses Not on filedocumented in this encounter Additional Health Concerns Infection Onset Date Last Indicated Resolved Time COVID-19 03/05/2022 03/05/2022 03/15/2022 7:18 PM EDT Assessment Noted Time PHQ-9 Depression Total Score: 2 11/07/19 19 2:06 PM EDT documented as of this encounter Care Teams Bilingual Middle School Teacher Relationship Specialty Start Date End Date Caitlyn Bowie MD [address] [address] PCP - General Internal Medicine 05/06/21 documented as of this encounter
--- OUTSIDE RECORDS SUMMARY | 2024-10-17 18:10 | XMS_ITS | Encounter Summary ---
Author Organization [facility] Address [address] [place] [address] Care Team Providers Care Children'S Attendant Name Role Phone Caitlyn Bowie MD Primary Care Provider +1- [phone] Encounter Details Date Type Department Care Team (Late st Contact Info) Description 03/14/2021 Scanned Document INTERFACE DEFAULT [address] [place] [address] System, Provider Not In Social History Tobacco [...] Description 10/18/2024 10:30 AM EDT Office Visit [facility] [address] [place] [address] Alfredo Michaud Jr., PA [address] [place] [address] [place] [address] 10/31/2024 1:00 PM EDT Office Visit [facility] at [address] - NP7-301 [facility] [place] [address] Ronald Mills MD [address] [place] [address] documented as of this encounter [...] documented as of this encounter Care Teams Children'S Attendant Relationship Specialty Start Date End Date Caitlyn Bowie MD [address] [address] PCP - General Internal Medicine 05/06/21 documented as of this encounter
--- OUTSIDE RECORDS SUMMARY | 2024-10-17 18:10 | XMS_ITS | Encounter Summary ---
Author Organization [facility] Address [address] [place] [address] Care Team Providers Care Dispensing Lead Name Role Phone Brennan Burnett MD Primary Care Provider Unavailab Hayden Montes MD Unavailable [phone] Pallavi Flood NP Unavailable [phone]- [phone] Caitlyn Bowie MD Primary Care Provider Unava ilable Encounter Details Date Type Department Care Team Description 09/15/2020 [facility] Medical Records [address] [place] [address] Social History Tobacco Use Types Packs/Day Years [...] on filedocumented in this encounter Care Teams Dispensing Lead Relationship Specialty Start Date End Date Brennan Burnett MD PCP - General Internal Medicine 05/27/20 12/07/21 Caitlyn Bowie MD [address] [place] [address] PCP - General Internal Medicine 12/08/21 Hayden Shah MD [address] [place] [address] Specialist Cardiovascular Disease 09/01/20 Pallavi Flood NP [address] [place] [address] Cardiology 09/01/20 documented as of this encounter
--- OUTSIDE RECORDS SUMMARY | 2024-10-17 18:10 | XMS_ITS | Encounter Summary ---
Author Organization [facility] Address [address] [place] [address] Care Team Providers Care Broaching Machine Operator Name Role Phone Sharon Vides Primary Care Provider Brennan Castro MD Primary Care Provider Unavailab Hayden Montes MD Unavailable [phone] Pallavi Flood NP Unavailable [phone]- [phone] Caitlyn Bowie MD Primary Care Provider Johnathon shaver Encounter Details Date Type Department Care Team Description 07/15/2019 Release of Information Medical Records [address] [place] [address] Abstract, Provider Social History Tobacco Use Types [...] on filedocumented in this encounter Care Teams Broaching Machine Operator Relationship Specialty Start Date End Date Sharon Vides PCP - General Internal Medicine 08/02/18 05/26/20 Brennan Burnett MD PCP - General Internal Medicine 05/27/20 12/07/21 Caitlyn Bowie MD [address] [place] [address] PCP - General Internal Medicine 12/08/21 Hayden Shah MD [address] [place] [address] Specialist Cardiovascular Disease 09/01/20 Pallavi Flood NP [address] [place] [address] Cardiology 09/01/20 documented as of this encounter
--- OUTSIDE RECORDS SUMMARY | 2024-10-17 18:10 | XMS_ITS | Encounter Summary ---
Author Organization [facility] Address [address] [place] [address] Care Team Providers Care Cuff Maker Name Role Phone Caitlyn Bowie MD Primary Care Provider +1- [phone] Encounter Details Date Type Department Care Team (Late st Contact Info) Description 02/15/2021 Scanned Document INTERFACE DEFAULT [address] [place] [address] System, Provider Not In Social History Tobacco [...] Description 10/18/2024 10:30 AM EDT Office Visit [facility] [address] [place] [address] Alfredo Michaud Jr., PA [address] [place] [address] [place] [address] 10/31/2024 1:00 PM EDT Office Visit [facility] at [address] - NP7-301 [facility] [place] [address] Ronald Mills MD [address] [facility] [address] [place] [address] documented as of this encounter Visit Diagnoses Not on filedocumented in this encounter Additional Health Concerns Infection Onset Date Last Indicated Resolved Time COVID-19 03/05/2022 03/05/2022 03/15/2022 7:18 PM EDT Assessment Noted Time PHQ-9 Depression Total Score: 2 11/07/19 19 2:06 PM EDT documented as of this encounter Care Teams Cuff Maker Relationship Specialty Start Date End Date Caitlyn Bowie MD [address] [address] PCP - General Internal Medicine 05/06/21 documented as of this encounter
--- OUTSIDE RECORDS SUMMARY | 2024-10-17 18:10 | XMS_ITS | Encounter Summary ---
Author Organization [facility] Address [address] [place] [address] Care Team Providers Care Brick Grader Name Role Phone Caitlyn Bowie MD Primary Care Provider +1- [phone] Encounter Details Date Type Department Care Team (Late st Contact Info) Description 04/02/2021 Scanned Document INTERFACE DEFAULT [address] [place] [address] System, Provider Not In Social History Tobacco [...] Description 10/18/2024 10:30 AM EDT Office Visit [facility] [address] [place] [address] Alfredo Michaud Jr., PA [address] [place] [address] [place] [address] 10/31/2024 1:00 PM EDT Office Visit [facility] at [address] - NP[address]301 [facility] [place] [address] Ronald Mills MD [address] [place] [address] documented as of this encounter [...] as of this encounter Care Teams Brick Grader Relationship Specialty Start Date End Date Caitlyn Bowie MD [address] [address] PCP - General Internal Medicine 05/06/21 documented as of this encounter
--- OUTSIDE RECORDS SUMMARY | 2024-10-17 18:10 | XMS_ITS | Encounter Summary ---
Author Organization [facility] Address [address] [place] [address] Care Team Providers Care Grid Molder Name Role Phone Caitlyn Bowie MD Primary Care Provider +1- [phone] Encounter Details Date Type Department Care Team (Late st Contact Info) Description 03/15/2021 Scanned Document INTERFACE DEFAULT [address] [place] [address] System, Provider Not In Social History Tobacco [...] Description 10/18/2024 10:30 AM EDT Office Visit [facility] [address] [place] [address] Alfredo Michaud Jr., PA [address] [place] [address] [place] [address] 10/31/2024 1:00 PM EDT Office Visit [facility] at [address] - NP7-301 [facility] [place] [address] Ronald Mills MD [address] [place] [address] documented as of this encounter [...] documented as of this encounter Care Teams Grid Molder Relationship Specialty Start Date End Date Caitlyn Bowie MD [address] [address] PCP - General Internal Medicine 05/06/21 documented as of this encounter
--- OUTSIDE RECORDS SUMMARY | 2024-10-17 18:10 | XMS_ITS | Encounter Summary ---
Author Organization [facility] Address [address] [place] [address] Care Team Providers Care Staffing Operations Manager Name Role Phone Victorino Martin MD Primary Care Provider Sharon Odonnell Primary Care Provider Brennan Castro MD Primary Care Provider UnavailHayden Fernandez MD Unavailable [phone] Pallavi Flood NP Unavailable [phone]- [phone] Caitlyn Bowie MD Primary Care Provider Johnathon shaver Encounter Details Date Type Department Care Team Description 01/22/2018 [facility] Medical Records [address] [place] [address] Abstract, Provider Social History Tobacco Use Types [...] on filedocumented in this encounter Care Teams Staffing Operations Manager Relationship Specialty Start Date End Date Victorino Martin MD PCP - General Internal Medicine 12/21/17 08/01/18 Sharon Vides PCP - General Internal Medicine 08/02/18 05/26/20 Brennan Burnett MD PCP - General Internal Medicine 05/27/20 12/07/21 Caitlyn Bowie MD [address] [place] [address] PCP - General Internal Medicine 12/08/21 Hayden Shah MD [address] [place] [address] [id number] Specialist Cardiovascular Disease 09/01/20 Pallavi Flood NP [address] [place], [place] [address]698[address] Cardiology 09/01/20 documented as of this encounter
--- OUTSIDE RECORDS SUMMARY | 2024-10-17 18:10 | XMS_ITS | Encounter Summary ---
Author Organization [facility] Address [address] [place] [address] Care Team Providers Care Food And Beverage Intern Name Role Phone Caitlyn Bowie MD Primary Care Provider +1- [phone] Encounter Details Date Type Department Care Team (Late st Contact Info) Description 03/16/2021 Scanned Document INTERFACE DEFAULT [address] [place] [address] System, Provider Not In Social History Tobacco [...] Description 10/18/2024 10:30 AM EDT Office Visit [facility] [address] [place] [address] Alfredo Michaud Jr., PA [address] [place] [address] [place] [address] 10/31/2024 1:00 PM EDT [facility] Visit [facility] at [address] - NP7-301 [facility] [place] [address] Ronald Mills MD 240 [facility] [place] [place] [address] documented as of this encounter Visit Diagnoses Not on filedocumented in this encounter Additional Health Concerns Infection Onset Date Last Indicated Resolved Time COVID-19 03/05/2022 03/05/2022 03/15/2022 7:18 PM EDT Assessment Noted Time PHQ-9 Depression Total Score: 2 11/07/19 19 2:06 PM EDT documented as of this encounter Care Teams Food And Beverage Intern Relationship Specialty Start Date End Date Caitlyn Bowie MD [address] [address] PCP - General Internal Medicine 05/06/21 documented as of this encounter
--- OUTSIDE RECORDS SUMMARY | 2024-10-17 18:10 | XMS_ITS | Clinical Summary ---
Author Organization 175 [facility] Address 175 [place] [address] Phone Care Team Providers Care Research Scientist Name Role Phone Brennan Burnett Primary Care Provider [phone] Allergies Active Allergy Reactions Criticality Noted Date [...] daily 2 tabs Sat. And Sun Active meclizine (ANTIVERT) 25 mg tablet Take 25 mg by mouth as needed. Active metoprolol succinate (TOPROL-XL) 50 mg 24 hr tablet Take 50 mg by mouth daily. Active montelukast (SINGULAIR) 10 mg tablet Take 1 Tab by mouth at bedtime. 8 Active saccharomyces boulardii (FLORASTOR) 250 mg capsule Active traZODone (DESYREL) 100 mg tablet Take [...] 60 each 11 5 08/23/19 26 Active lifitegrast 5 % dropperette apply to the eye 2 times daily. 1 g - Ophthalmic 10/11/19 25 Discontin ued(Thera py completed ) oxymetazoline HCl (NASAL SPRAY SINUS NASL) by Nasal route. 10/11/19 25 Discontin ued(Thera py completed ) Active [...] 20 mg as needed by her previous sweater operator which she has taken sporadically. I have asked her to take this daily to see if this improves her symptoms and she has a follow-up appointment with Dr. Shah on September 16 which she will keep. We also had a long conversation regarding the fact that she is seeing 3 different sweater operator for the same problems. We informed her [...] continues to see Dr. Avalos or her sweater operator at [facility]. She verbalized understanding of this and [...] right lower leg 03/06/2019 Antiphospholipid antibody syndrome ([facility] V24) 12/24/2018 Adrenal insufficiency ([facility] V24) 08/23/2018 Allergic rhinitis 08/23/2018 Hyperparathyroidism ([facility] V24) 08/23/2018 MRSA infection 08/23/2018 Overview (05/16/2024): 06/2009, s/p thoracotomy infection Osteoarthritis 08/23/2018 Radiation-induced pulmonary fibrosis ([facility] V2 4) 11/13/2017 Bronchiectasis ([facility] V24, [facility] V28) 2017 Leg edema 08/08/2017 Restrictive lung disease 08/08/2017 Chronic obstructive pulmonar y disease ([facility] V24, [facility] V28) 04/13/2017 Fibromyalgia 04/13/2017 Congestive heart failure ([facility] V24, [facility] V 28) 04/04/2017 Heterozygous factor V Leiden mutation ([facility] V 24) 04/04/2017 Obstructive sleep apnea syndrome 04/04/2017 Overview (05/16/2024): CPAP Pleural effusion 04/04/2017 Pulmonary hypertension ([facility] V24, [facility] V28 ) 04/04/2017 Multiple pulmonary nodules 03/17/2017 Diverticulitis of [...] Encounters Date Type Department Care Team Description 10/10/2024 1:00 PM EDT Office Visit [address] [place] [address] Ayanna Jaffe MD 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); Gait abnormality; Memory change; Anxiety; Blurry vision 10/09/2024 12:45 PM EDT Treatment [facility] Speech [facility] 175 [facility] [address] [place] [address] Daphne Alarcon, WATER CHASER 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); Cognitive communication disorder; Unsp symptoms and signs w cognitive functions and awareness 10/09/2024 Plan of Care Documentation [facility] Speech [facility] [address] [address] 08/26/2024 10:30 AM EST Telemedicine [facility] 175 [facility] [address] [place] [phone] Ayanna Jaffe MD Anxiety (Primary Dx); Memory change; Gait abnormality; White matter lesion of central nervous system 08/23/2024 1:20 PM EST Office Visit Gastroenterology - [address] [facility] 299 [facility] [address] [place] [phone] Saima Amor, CHEMIST PROTEINS Gastroesophageal reflux disease, unspecified whether esophagitis present (Primary Dx); Constipation, unspecified constipation type 08/19/2024 Telephone [facility] Speech Therapy [address] [address] Daphne Alarcon, WATER CHASER returning pt call 08/08/2024 Telephone [facility] Speech Therapy [address] [address] Daphne Alarcon, WATER CHASER Memory Loss (Returned pt call from 08/07 about recent missed visit. Pt is not interested in in person f/u right now due to cold weather and other medical issues. She will f/u with medical team if she wants to address cognitive status in future) from Last 3 Months Immunizations Name Administration [...] PROCEDURE: HISTORICAL TONSILLECTOMY OTHER SURGICAL HISTORY PROCEDURE: SC RMVL LUNG XCP TOT PNEUMONECTOMY SLEEVE LOBECTOMY; [...] pathology report UPPER GASTROINTESTINAL ENDOSCOPY 05/03/2015 PROCEDURE: SC UPPER GI ENDOSCOPY PERFORMED MITRAL CLIP PROCEDURE Medical History Medical History Date Comments Akathisia 04/15/2013 DX:Akathisia Anxiety 12/07/2016 DX:Anxiety Bronchiectasis ([facility] V24, [facility] V28) 08/08/2017 DX:Bronchiectasis (HCC) Cataract 08/26/2014 DX:Cataract Chronic obstructive pulmonar y disease ([facility] V24, [facility] V28) 04/13/2017 DX:Chronic obstructive pulm onary disease (HCC) 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 DX:Complica cole migraine Congestive heart failure ([facility] V24, [facility] V28) 04/04/2017 DX:Congestive heart failure (HCC) History of deep vein thrombosis 04/04/2017 DX:History of deep vein thrombosis Diverticulitis of sigmoid colon 12/15/2016 DX:Diverticulitis of sigmoid colon Elevated liver enzymes 09/23/2015 DX:Elevat ed liver enzymes Fibromyalgia 04/13/2017 DX:Fibromyalgia Gastroesophageal reflux disease 11/17/2016 DX:Gastroesophageal reflux disease Glaucoma suspect 08/26/2014 DX:Glaucoma dori pect Heterozygous factor V Leiden mutation ([facility] V24) 04/04/2017 DX:Heterozygous factor V Lei den mutation [...] syndrome 02/18/2013 DX:Postc oncussion syndrome Pulmonary hypertension ([facility] V24, [facility] V28) 04/04/2017 DX:Pulmonary hypertension (H CC) Restrictive lung disease 08/08/2017 DX:Rest rictive lung disease 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 DX:Zinc deficien cy Obstructive sleep apnea syndrome 04/04/2017 DX:Obstructive sleep apnea syndrome; COMMENT: CPAP Radiation-induced pulmonary fibrosis ([facility] V24) 11/13/2017 DX:Radiation-induced pulmona ry fibrosis (HCC) Adrenal insufficiency ([facility] V24) 08/23/2018 DX:Adrenal insufficiency (HCC) Hyperparathyroidism ([facility] V24) 08/23/2018 DX:Hyperparathyroidism (HCC) Osteoporosis 11/17/2016 DX:Osteoporosis History of rheumatic [...] Mx LLL resection, Chemo, RT, Cisplatin, Vinorelbine [phone] Antiphospholipid antibody sy ndrome ([facility] V24) 12/24/2018 DX:Antiphospholipid antibody syndrome (HCC) 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 Hyperparathyroidism ([facility] V24) DX:Hyperparathyroidism (HCC) Adrenal insufficiency ([facility] V24) DX:Adrenal insufficiency (HCC) Family History Medical History [...] Sign Reading Time Taken Comments Blood Pressure 104/64 10/10/2024 1:09 PM EDT Pulse 73 10/10/2024 1:09 PM EDT Temperature 36.8 ??C (98.2 ??F) 06/15/2024 2:56 PM ES T Respiratory Rate 16 06/15/2024 2:56 PM EST Oxygen Saturation 99% 10/10/2024 1:09 PM EDT Inhaled Oxygen Concentration - - Weight 58.1 kg (128 lb) 10/10/2024 1:09 PM EDT Height 160 cm (5' 3 ) 10/10/2024 1:09 PM EDT Body Mass Index 22.67 10/10/2024 1:09 PM EDT Plan of Treatment Upcoming Encounters Date Type Department Care Team (Late st Contact Info) Description 12/10/2024 1:00 PM EDT Office Visit [facility] 175 [facility] [address] [place] [phone] Shirley Chaidez PA [address] [place] [address] Health Maintenance Due Date Last Done Comments Zoster Vaccines (1 of 2) 1964 RSV Immunization Adult Patients (1 - 1-dose 75+ series) 2018 COVID-19 [...] age to complete this topic Meningococcal B Vaccine Aged Out No l onger eligible based on patient's age to complete this topic RSV Immunization Patients Under 20 months Aged Out No longer eligible based on patient's age to complete this topic Varicella Vaccines Aged Out No longer eligible based on patient's age to complete this topic Procedures Procedure Name Priority Date/Time Associated Diagnosis Comments COMPREHENSIVE METABOLIC PANEL STAT 06/15/2024 1:26 PM EST from Last 3 Months or Most Recently Relevant to Health Maintenance Results * (ABNORMAL) Comprehensive metabolic panel (06/15/2024 1:26 PM EST) Sodium 140 133 - 145 mmol/L LAB CHEMISTRY METHOD 06/15/2024 2:10 PM [facility] Potassium 4.7 3.5 - 5.5 mmol/L LAB CHEMISTRY METHOD 06/15/2024 2:10 PM [facility] Chloride 102 96 - 110 mmol/L LAB CHEMISTRY METHOD 06/15/2024 2:10 PM [facility] CO2 34(H) 21 - 32 mmol/L LAB CHEMISTRY METHOD 06/15/2024 2:10 PM [facility] Anion Gap 4 3 - 11 LAB CHEMISTRY METHOD 06/15/2024 2:10 PM [facility] Glucose 95 70 - 100 mg/dL LAB CHEMISTRY METHOD 06/15/2024 2:10 PM [facility] BUN 29(H) 5 - 25 mg/dL LAB CHEMISTRY METHOD 06/15/2024 2:10 PM [facility] Creatinine 0.95 0.50 - 1.10 mg/dL LAB CHEMISTRY METHOD 06/15/2024 2:10 PM [facility] eGFR 60 >=60 mL/min/1. 73m2 LAB CHEMISTRY METHOD 06/15/2024 2:10 PM [facility] Comment:Calculation based on the??Chronic Kidney Disease Epidemiology Collaboration (CKD-EPI) equation refit??without adjustment for race. BUN/Creatinine Ratio 30.5 LAB CHEMISTRY METHOD 06/15/2024 2:10 PM [facility] Calcium 10.1 8.5 - 10.5 mg/dL LAB CHEMISTRY METHOD 06/15/2024 2:10 PM [facility] AST (SGOT) 35 10 - 42 unit/L LAB CHEMISTRY METHOD 06/15/2024 2:10 PM [facility] ALT (SGPT) 39 10 - 60 unit/L LAB CHEMISTRY METHOD 06/15/2024 2:10 PM [facility] Alkaline Phosphatase 83 42 - 121 unit/L LAB CHEMISTRY METHOD 06/15/2024 2:10 PM EST [facility] Total Protein 6.4 6.0 - 8.0 g/dL LAB CHEMISTRY METHOD 06/15/2024 2:10 PM EST [facility] Albumin 3.3 3.2 - 5.0 g/dL LAB CHEMISTRY METHOD 06/15/2024 2:10 PM EST [facility] Total Bilirubin 0.4 0.0 - 1.4 mg/dL LAB CHEMISTRY METHOD 06/15/2024 2:10 PM EST [facility] Blood Venous blood specimen / Unknown Venipuncture / Unknown 06/15/2024 1:26 PM EST 06/15/2024 1:32 PM EST us Jovana Cruz MD LAB BLOOD ORDERABLES Final Resul t [facility] [address] [place] [address], from Last 3 Months or Most Recently Relevant to Health [place] [id number] [facility] Advance Directives Documents on File Type Date Recorded Patient Community Health Director Expl anation Health Care Decision (hx) 10/18/2013 [...] (hx) 10/04/2013 AD LACEY DIRECTIVE Care Teams Research Scientist Relationship Specialty Start Date End Date Brennan Burnett MD [address] [place] [address] PCP - General 05/06/24
--- OUTSIDE RECORDS SUMMARY | 2024-10-17 18:10 | XMS_ITS | Encounter Summary ---
Author Organization [facility] Address [address] [place] [address] Care Team Providers Care Geothermal Electrical Engineer Name Role Phone Caitlyn Bowie MD Primary Care Provider [phone]- [phone] Encounter Details Date Type Department Care Team (Late st Contact Info) Description 03/08/2021 Scanned Document INTERFACE DEFAULT [address] [place] [phone] System, Provider Not In Social History Tobacco [...] Description 10/18/2024 10:30 AM EDT Office Visit [facility] [address] [place] [phone] Alfredo Michaud Jr., PA [address] [place] [address] [place] [address] 10/31/2024 1:00 PM EDT [facility] [address] - [address] [facility] [place] [address] Ronald Mills MD [address] [place] [address] documented as of this encounter [...] End Date Caitlyn Bowie MD [address] [address] PCP - General Internal Medicine 05/06/21 documented as of this encounter
[2024-10-17 18:11] VITALS: BP 142/67; PULSE 79; RESP 20; TEMP 36.8; O2SAT 100
--- OUTSIDE RECORDS SUMMARY | 2024-10-17 18:11 | XMS_ITS | Encounter Summary ---
Author Organization [facility] and [facility] Address [address] [place] [address] Care Team Providers Care Physician Practice Manager Name Role Phone Caitlyn Bowie MD Primary Care Provider +1- [phone] Encounter Details Date Type Department Care Team (Late Contact Info) Description 02/02/2021 Scanned Document [facility] Health Information Management [address] [place] [phone] External, Provider Social History Tobacco Use Types [...] Description 10/18/2024 10:30 AM EDT Office Visit [facility] [address] [place] [address] Alfredo Michaud Jr., PA [address] [place] [address] [place] [address] 10/31/2024 1:00 PM EDT [facility] [address] - [address] [facility] [place] [address] Ronald Mills MD 240 [facility] [address] [place] [address] documented as of this encounter Visit Diagnoses Not on filedocumented in this encounter Additional Health Concerns Infection Onset Date Last Indicated Resolved Time COVID-19 03/05/2022 03/05/2022 03/15/2022 7:18 PM EDT Assessment Noted Time PHQ-9 Depression Total Score: 2 11/07/19 19 2:06 PM EDT documented as of this encounter Care Teams Physician Practice Manager Relationship Specialty Start Date End Date Caitlyn Bowie MD [address] [address] PCP - General Internal Medicine 05/06/21 documented as of this encounter
--- OUTSIDE RECORDS SUMMARY | 2024-10-17 18:11 | XMS_ITS | Encounter Summary ---
Author Organization [facility] Address [address] [place] [address] Care Team Providers Care Paving Plant Operator Name Role Phone Caitlyn Bowie MD Primary Care Provider +1- [phone] Encounter Details Date Type Department Care Team (Late st Contact Info) Description 11/09/2020 Scanned Document INTERFACE DEFAULT [address] [place] [phone] System, Provider Not In Social History Tobacco [...] Description 10/18/2024 10:30 AM EDT Office Visit [facility] [address] [place] [phone] Alfredo Michaud Jr., PA [address] [place] [address] [place] [address] 10/31/2024 1:00 PM EDT [facility] Visit [facility] [address] - [address] [facility] [place] [address] oRnald Mills MD 240 [facility] [address] [place] [address] documented as of this encounter Visit Diagnoses Not on filedocumented in this encounter Additional Health Concerns Infection Onset Date Last Indicated Resolved Time COVID-19 03/05/2022 03/05/2022 03/15/2022 7:18 PM EDT Assessment Noted Time PHQ-9 Depression Total Score: 2 11/07/19 19 2:06 PM EDT documented as of this encounter Care Teams Paving Plant Operator Relationship Specialty Start Date End Date Caitlyn Bowie MD [address] [address] PCP - General Internal Medicine 05/06/21 documented as of this encounter
--- OUTSIDE RECORDS SUMMARY | 2024-10-17 18:11 | XMS_ITS | Encounter Summary ---
Author Organization [facility] Address [address] [place] [address] Care Team Providers Care Ground Support Equipment Assembler Name Role Phone Caitlyn Bowie MD Primary Care Provider +1- [phone] Encounter Details Date Type Department Care Team (Late st Contact Info) Description 04/28/2015 Scanned Document [facility] Health Information Management [address] [place] [phone] External, Provider Social History Tobacco Use Types [...] Description 10/18/2024 10:30 AM EDT Office Visit [facility] [address] [place] [phone] Alfredo Michaud Jr., EMELIA [address] [place] [address] [place] [address] 10/31/2024 1:00 PM EDT Office Visit Hematology Program at [address] - [address] [place] [address] Ronald Mills MD 240 [facility] [address] [place] [address] documented as of this encounter Procedures Procedure Name Priority Date/Time Associated Diagnosis Comments LAB SCAN Routine 04/28/2015 documented in this encounter Results * Lab Scan (04/28/2015) Blood specimen (specimen) us Provider External LAB BLOOD ORDERABLES Edited Re sult - Final [facility] [place], [place], [facility] documented in this encounter Visit Diagnoses Not on filedocumented in this encounter Additional Health Concerns Infection Onset Date Last Indicated Resolved Time COVID-19 03/05/2022 03/05/2022 03/15/2022 7:18 PM EDT documented as of this encounter Care Teams Ground Support Equipment Assembler Relationship Specialty Start Date End Date Caitlyn Bowie MD 3400 [facility] 1 [place] [address] PCP - General Internal Medicine 05/06/21 Henry Kelly MD Pulmonary Department 175 [facility] [address] [place] [address] Physician Pulmonary Disease 09/06/17 06/22/20 documented as of this encounter
--- OUTSIDE RECORDS SUMMARY | 2024-10-17 18:11 | XMS_ITS | Encounter Summary ---
Author Organization [facility] and [facility] Address [address] [place] [address] Care Team Providers Care Breakfast Server Name Role Phone Caitlyn Bowie MD Primary Care Provider [phone]- [phone] Encounter Details Date Type Department Care Team (Late st Contact Info) Description 02/08/2021 Scanned Document INTERFACE DEFAULT [address] [place] [address] System, Provider Not In Social History Tobacco [...] Description 10/18/2024 10:30 AM EDT Office Visit [facility] [address] [place] [address] Alfredo Michaud Jr., PA [address] [place] [address] [place] [address] 10/31/2024 1:00 PM EDT Office Visit [facility] [address] - [address] [facility] [place] [address] Ronald Mills MD 240 [facility] [address] [place] [address] documented as of this encounter Visit Diagnoses Not on filedocumented in this encounter Additional Health Concerns Infection Onset Date Last Indicated Resolved Time COVID-19 03/05/2022 03/05/2022 03/15/2022 7:18 PM EDT Assessment Noted Time PHQ-9 Depression Total Score: 2 11/07/19 19 2:06 PM EDT documented as of this encounter Care Teams Breakfast Server Relationship Specialty Start Date End Date Caitlyn Bowie MD [address] [address] PCP - General Internal Medicine 05/06/21 documented as of this encounter
--- OUTSIDE RECORDS SUMMARY | 2024-10-17 18:11 | XMS_ITS | Encounter Summary ---
Author Organization [facility] and [facility] Address [address] [place] [address] Care Team Providers Care Road Freight Conductor Name Role Phone Caitlyn Bowie MD Primary Care Provider +1- [phone] Encounter Details Date Type Department Care Team (Late st Contact Info) Description 02/02/2021 Scanned Document INTERFACE DEFAULT [address] [place] [address] System, Provider Not In Social History Tobacco [...] Description 10/18/2024 10:30 AM EDT Office Visit [facility] [address] [place] [phone] Alfredo Michaud Jr., PA [address] [place] [address] [place] [address] 10/31/2024 1:00 PM EDT Office Visit [facility] at [address] - [address] [facility] [place] [address] Ronald Mills MD 240 [facility] [address] [place] [address] documented [...] as of this encounter Care Teams Road Freight Conductor Relationship Specialty Start Date End Date Caitlyn Bowie MD [address] [address] PCP - General Internal Medicine 05/06/21 documented as of this encounter
--- OUTSIDE RECORDS SUMMARY | 2024-10-17 18:11 | XMS_ITS | Encounter Summary ---
Author Organization [facility] Address [address] [place] [address] Care Team Providers Care Box Office Agent Name Role Phone [place] Vides Primary Care Provider Unava ilable Brennan Burnett MD Primary Care Provider Unavailab Hayden Montes MD Unavailable [phone] Pallavi Flood NP Unavailable [phone] Caitlyn Bowie MD Primary Care Provider Unava ilable Reason for Visit * Reason Onset Date Comments hospital follow up 12/17/2018 records Encounter Details Date Type Department Care Team Description 12/17/2018 Telephone Pulmonology [facility] [address] [facility] [address] [place] [address] Henry Kelly MD hospital follow [...] - 12/17/2018 1:48 PM EDT Medical Records: [phone] Ron (patient services) [phone] * Telephone Encounter - Kelly Gallo M.A. - 12/17/2018 1:46 PM EDT Hospital follow up appointment needed Hospital patient was treated at: [facility] Was this only an ER visit or [...] on filedocumented in this encounter Care Teams Box Office Agent Relationship Specialty Start Date End Date [place] Vides PCP - General Internal Medicine 08/02/18 05/26/20 Brennan Burnett MD PCP - General Internal Medicine 05/27/20 12/07/21 Caitlyn Bowie MD [address] [place] [address] PCP - General Internal Medicine 12/08/21 Hayden Shah MD [address] [place], [place] [phone] Specialist Cardiovascular Disease 09/01/20 Pallavi Flood NP [address] [place] [address] Cardiology 09/01/20 documented as of this encounter
--- OUTSIDE RECORDS SUMMARY | 2024-10-17 18:11 | XMS_ITS | Encounter Summary ---
Author Organization [facility] and [facility] Address [address] [place] [address] Care Team Providers Care Business Resiliency Manager Name Role Phone Caitlyn Bowie MD Primary Care Provider [phone]- [phone] Encounter Details Date Type Department Care Team (Late st Contact Info) Description 01/13/2021 Scanned Document Cancer Center at [address] [phone] Ronald Mills MD [address] [address] Social History Tobacco Use Types [...] Description 10/18/2024 10:30 AM EDT Office Visit [facility] [address] [place] [phone] Alfredo Michaud Jr., PA [address] [place] [address] [place] [address] 10/31/2024 1:00 PM EDT Office Visit [facility] at [address] - [address] [facility] [place] [facility] [place] [address] Ronald Mills MD 240 [facility] [address] [place] [address] documented as of this encounter [...] as of this encounter Care Teams Business Resiliency Manager Relationship Specialty Start Date End Date Caitlyn Bowie MD [address] [address] PCP - General Internal Medicine 05/06/21 documented as of this encounter
--- OUTSIDE RECORDS SUMMARY | 2024-10-17 18:11 | XMS_ITS | Encounter Summary ---
Author Organization [facility] Address [address] [place] [address] Care Team Providers Care Interlocker Maintainer Name Role Phone Sharon Vides Primary Care Provider Brennan Castro MD Primary Care Provider Unavailab Hayden Montes MD Unavailable [phone] Pallavi Flood NP Unavailable +1- [phone] Caitlyn Bowie MD Primary Care Provider Johnathon shaver Encounter Details Date Type Department Care Team Description 09/05/2018 Night Triage Doc Medical Records [address] [place] [address] Abstract, Provider Social History Tobacco Use Types [...] on filedocumented in this encounter Care Teams Interlocker Maintainer Relationship Specialty Start Date End Date Sharon Vides PCP - General Internal Medicine 08/02/18 05/26/20 Brennan Burnett MD PCP - General Internal Medicine 05/27/20 12/07/21 Caitlyn Bowie MD [address] [place] [address] PCP - General Internal Medicine 12/08/21 Hayden Shah MD [address] [place] [address] Specialist Cardiovascular Disease 09/01/20 Pallavi Flood NP [address] [place] [address] Cardiology 09/01/20 documented as of this encounter
--- OUTSIDE RECORDS SUMMARY | 2024-10-17 18:11 | XMS_ITS | Encounter Summary ---
Author Organization [facility] Address [address] [place] [address] Care Team Providers Care Components Engineer Name Role Phone Caitlyn Bowie MD Primary Care Provider +1- [phone] Encounter Details Date Type Department Care Team (Late st Contact Info) Description 08/23/2017 Scanned Document [facility] Health Information Management [address] [place] [address] External, Provider Social History Tobacco Use Types [...] Description 10/18/2024 10:30 AM EDT Office Visit [facility] [address] [place] [address] Alfredo Michaud Jr., EMELIA [address] [place] [address] [place] [address] 10/31/2024 1:00 PM EDT Office Visit Hematology Program at [address] - [address] [place] [address] Ronald Mills MD [address] [place] [address] documented as of this encounter [...] documented as of this encounter Care Teams Components Engineer Relationship Specialty Start Date End Date Caitlyn Bowie MD 3400 [facility] 1 [place] [address] PCP - General Internal Medicine 05/06/21 Henry Kelly MD Pulmonary Department 175 [facility], [address] [place] [address] Physician Pulmonary Disease 09/06/17 06/22/20 documented as of this encounter
--- OUTSIDE RECORDS SUMMARY | 2024-10-17 18:11 | XMS_ITS | Encounter Summary ---
Author Organization [facility] Address [address] [place] [address] Care Team Providers Care Seasonal Retail Merchandiser Name Role Phone Brennan Burnett MD Primary Care Provider Unavailab Hayden Montes MD Unavailable [phone] Pallavi Flood NP Unavailable [phone]- [phone] Caitlyn Bowie MD Primary Care Provider Unava ilable Encounter Details Date Type Department Care Team Description 09/25/2020 Debit Agent Report Medical Records [address] [place] [address] Henry Kelly MD Social History Tobacco Use [...] on filedocumented in this encounter Care Teams Seasonal Retail Merchandiser Relationship Specialty Start Date End Date Brennan Burnett MD PCP - General Internal Medicine 05/27/20 12/07/21 Caitlyn Bowie MD [address] [place] [address] PCP - General Internal Medicine 12/08/21 Hayden Shah MD [address] [place] [address] Specialist Cardiovascular Disease 09/01/20 Pallavi Flood NP [address] [place] [address] Cardiology 09/01/20 documented as of this encounter
--- OUTSIDE RECORDS SUMMARY | 2024-10-17 18:11 | XMS_ITS | Encounter Summary ---
Author Organization [facility] Address [address] [place] [address] Care Team Providers Care Equipment Mechanic Specialist Name Role Phone Sharon Vides Primary Care Provider Brennan Castro MD Primary Care Provider Unavailab Hayden Montes MD Unavailable [phone] Pallavi Flood NP Unavailable [phone]- [phone] Caitlyn Bowie MD Primary Care Provider Johnathon shaver Encounter Details Date Type Department Care Team Description 12/28/2018 Orders Only Pulmonology - [address] [place] [address] Henry Kelly MD Chest pain, [...] Primary documented in this encounter Care Teams Equipment Mechanic Specialist Relationship Specialty Start Date End Date Sharon Vides PCP - General Internal Medicine 08/02/18 05/26/20 Brennan Burnett MD PCP - General Internal Medicine 05/27/20 12/07/21 Caitlyn Bowie MD [address] [place] [address] PCP - General Internal Medicine 12/08/21 Hayden Shah MD [address] [place] [address] Specialist Cardiovascular Disease 09/01/20 Pallavi Flood NP [address] [place] [phone] Cardiology 09/01/20 documented as of this encounter
--- OUTSIDE RECORDS SUMMARY | 2024-10-17 18:11 | XMS_ITS | Encounter Summary ---
Author Organization [facility] Address [address] [place] [address] Care Team Providers Care Speed Winder Name Role Phone Caitlyn Bowie MD Primary Care Provider +1- [phone] Encounter Details Date Type Department Care Team (Late st Contact Info) Description 02/02/2018 Scanned Document [facility] Health Information Management [address] [place] [address] External, Provider Social History Tobacco Use Types [...] Description 10/18/2024 10:30 AM EDT Office Visit [facility] [address] [place] [address] Alfredo Michaud Jr., EMELIA [address] [place] [address] [place] [address] 10/31/2024 1:00 PM EDT Office Visit Hematology Program at [address] - [address] [place] [address] Ronald Mills MD [address] [place] [address] documented as of this [...] documented as of this encounter Care Teams Speed Winder Relationship Specialty Start Date End Date Caitlyn Bowie MD 3400 [facility] 1 [place] [address] PCP - General Internal Medicine 05/06/21 Henry Kelly MD Pulmonary Department 175 [facility], [address] [place] [address] Physician Pulmonary Disease 09/06/17 06/22/20 documented as of this encounter
--- OUTSIDE RECORDS SUMMARY | 2024-10-17 18:11 | XMS_ITS | Encounter Summary ---
Author Organization [facility] Address [address] [place] [address] Care Team Providers Care Tire Repairman Name Role Phone Brennan Burnett MD Primary Care Provider Unavailab Hayden Montes MD Unavailable [phone] Pallavi Flood NP Unavailable [phone]- [phone] Caitlyn Bowie MD Primary Care Provider Unava ilable Encounter Details Date Type Department Care Team Description 08/17/2020 [facility] Medical Records [address] [place] [address] [place] [address] Social History Tobacco Use Types Packs/Day Years [...] filedocumented in this encounter Care Teams Tire Repairman Relationship Specialty Start Date End Date Brennan Burnett MD PCP - General Internal Medicine 05/27/20 12/07/21 Caitlyn Bowie MD [address] [place] [address] PCP - General Internal Medicine 12/08/21 Hayden Shah MD [address] [place] [address] Specialist Cardiovascular Disease 09/01/20 Pallavi Flood NP [address] [place] [address] Cardiology 09/01/20 documented as of this encounter
--- OUTSIDE RECORDS SUMMARY | 2024-10-17 18:11 | XMS_ITS | Encounter Summary ---
Author Organization [facility] Address [address] [place] [address] Care Team Providers Care Fish And Wildlife Warden Name Role Phone Caitlyn Bowie MD Primary Care Provider [phone]- [phone] Encounter Details Date Type Department Care Team (Late st Contact Info) Description 07/31/2015 Scanned Document [facility] Health Information Management [address] [place] [address] External, Provider Social History Tobacco Use Types [...] Description 10/18/2024 10:30 AM EDT Office Visit [facility] [address] [place] [address] Alfredo Michaud Jr., EMELIA [address] [place] [address] [place] [address] 10/31/2024 1:00 PM EDT Office Visit Hematology Program at [address] [place] [address] Ronald Mills MD 240 [facility] [address] [place] [address] documented as of this encounter Procedures Procedure Name Priority Date/Time Associated Diagnosis Comments NUC MED/PET RESULT SCAN Routine 07/31/2015 documented in this encounter Results * Nuc Med/PET Result Scan (07/31/2015) us Provider External IMG SCAN REPORTS Edited Result - Final Performing Organization Address City/State/[facility] Co de Phone Number [facility] [place], [place], [facility] documented in this encounter Visit Diagnoses Not on filedocumented in this encounter Additional Health Concerns Infection Onset Date Last Indicated Resolved Time COVID-19 03/05/2022 03/05/2022 03/15/2022 7:18 PM EDT documented as of this encounter Care Teams Fish And Wildlife Warden Relationship Specialty Start Date End Date Caitlyn Bowie MD 3400 [facility] 1 [place] [address] PCP - General Internal Medicine 05/06/21 Henry Kelly MD Pulmonary Department 175 [facility], [address] [place] [address] Physician Pulmonary Disease 09/06/17 06/22/20 documented as of this encounter
--- OUTSIDE RECORDS SUMMARY | 2024-10-17 18:11 | XMS_ITS | Encounter Summary ---
Author Organization [facility] Address [address] [place] [address] Care Team Providers Care Information Services Manager Name Role Phone Caitlyn Bowie MD Primary Care Provider [phone]- [phone] Encounter Details Date Type Department Care Team (Late st Contact Info) Description 05/01/2015 Scanned Document [facility] Health Information Management [address] [place] [address] External, Provider Social History Tobacco Use Types [...] Description 10/18/2024 10:30 AM EDT Office Visit [facility] [address] [place] [address] Alfredo Michaud Jr., EMELIA [address] [place] [address] [place] [address] 10/31/2024 1:00 PM EDT Office Visit Hematology Program at [address] - [address] [place] [address] Ronald Mills MD [address] [place] [address] documented [...] as of this encounter Care Teams Information Services Manager Relationship Specialty Start Date End Date Caitlyn Bowie MD 3400 [facility] 1 [place] [address] PCP - General Internal Medicine 05/06/21 Henry Kelly MD Pulmonary Department 175 [facility], [address] [place] [address] Physician Pulmonary Disease 09/06/17 06/22/20 documented as of this encounter
--- OUTSIDE RECORDS SUMMARY | 2024-10-17 18:11 | XMS_ITS | Encounter Summary ---
Author Organization [facility] Address [address] [place] [address] Care Team Providers Care Auto Leasing Manager Name Role Phone Caitlyn Bowie MD Primary Care Provider +1- [phone] Encounter Details Date Type Department Care Team (Late st Contact Info) Description 01/28/2018 Scanned Document [facility] Health Information Management [address] [place] [address] External, Provider Social History Tobacco Use Types [...] Description 10/18/2024 10:30 AM EDT Office Visit [facility] [address] [place] [address] Alfredo Michaud Jr., EMELIA [address] [place] [address] [place] [address] 10/31/2024 1:00 PM EDT Office Visit Hematology Program at [address] - [address] [place] [address] Ronald Mills MD [address] [place] [address] documented as of this encounter [...] as of this encounter Care Teams Auto Leasing Manager Relationship Specialty Start Date End Date Caitlyn Bowie MD 3400 [facility] 1 [place] [address] PCP - General Internal Medicine 05/06/21 Henry Kelly MD Pulmonary Department 175 [facility], [address] [place] [address] Physician Pulmonary Disease 09/06/17 06/22/20 documented as of this encounter
--- OUTSIDE RECORDS SUMMARY | 2024-10-17 18:11 | XMS_ITS | Encounter Summary ---
Author Organization [facility] Address [address] [place] [address] Care Team Providers Care Reclamation Kettle Tender Name Role Phone Caitlyn Bowie MD Primary Care Provider +1- [phone] Encounter Details Date Type Department Care Team (Late st Contact Info) Description 10/16/2013 Scanned Document [facility] 789 [facility], 2nd floor [facility], [address] [place], [place] [address] Suzy Kong MD [address] [place] [address] Social History Tobacco Use Types Packs/Day [...] Description 10/18/2024 10:30 AM EDT Office Visit [facility] [address] [place] [address] [address] [place] [address] Alfredo Michaud Jr., EMELIA [address] [place] [address] [place] [address] 10/31/2024 1:00 PM EDT Office Visit [facility] [address] [place] - [address] [facility] [place] [address] Ronald Mills MD 240 [facility] A1 [place] [address] documented as of this encounter Visit Diagnoses Not on filedocumented in this encounter Additional Health Concerns Infection Onset Date Last Indicated Resolved Time COVID-19 03/05/2022 03/05/2022 03/15/2022 7:18 PM EDT documented as of this encounter Care Teams Reclamation Kettle Tender Relationship Specialty Start Date End Date Caitlyn Bowie MD 3400 [facility] 1 [place] [address] PCP - General Internal Medicine 05/06/21 Henry Kelly MD Pulmonary Department [address] [place] [address], [address] [place] [address] Physician Pulmonary Disease 09/06/17 06/22/20 documented as of this encounter
--- OUTSIDE RECORDS SUMMARY | 2024-10-17 18:11 | XMS_ITS | Encounter Summary ---
Author Organization [facility] Address [address] [place] [address] Care Team Providers Care Elementary Special Education Teacher Name Role Phone Caitlyn Bowie MD Primary Care Provider +1- [phone] Reason for Visit * Reason Comments Other Encounter Details Date Type Department Care Team (Late st Contact Info) Description 01/12/2021 Telephone [facility]ology [facility] at [address] - [address] [phone] Ronald Mills MD [address] [place] [address] Other Social History Tobacco Use Types [...] AM EDT Lab orders were faxed to [facility] @ [phone]. Patient notified by phone. * Telephone Encounter - Nasima Wang - 01/12/2021 8:46 AM EDT Pt called looking to speak with Kirstin RE: lab orders sent to lab [facility] lab Looking to have labs sent there A.S.A.P at some point today She is scheduled with Dr. Mills on January 28 documented in this encounter Plan of Treatment Upcoming Encounters Date Type Department Care Team (Late st Contact Info) Description 10/18/2024 10:30 AM EDT Office Visit [facility] [address] [place] [address] Alfredo Michaud Jr., PA [address] [place] [address] [place] [address] 10/31/2024 1:00 PM EDT Office Visit [facility] at [address] - [address] [phone] Ronald Mills MD [address] [address] documented as of this encounter [...] End Date Caitlyn Bowie MD [address] [address] PCP - General Internal Medicine 05/06/21 documented as of this encounter
--- OUTSIDE RECORDS SUMMARY | 2024-10-17 18:11 | XMS_ITS | Encounter Summary ---
Author Organization [facility] [place] [facility] Address [address] [place] [address] Care Team Providers Care Observer Electrical Prospecting Name Role Phone Brennan Burnett MD Primary Care Provider Unavailab Hayden Montes MD Unavailable [phone] Pallavi Flood NP Unavailable [phone]- [phone] Caitlyn Bowie MD Primary Care Provider Unava ilable Encounter Details Date Type Department Care Team Description 08/18/2020 SCAN Medical Records [address] [place] [address] Brennan Burnett MD Social History Tobacco Use [...] on filedocumented in this encounter Care Teams Observer Electrical Prospecting Relationship Specialty Start Date End Date Brennan Burnett MD PCP - General Internal Medicine 05/27/20 12/07/21 Caitlyn Bowie MD [address] [place] [address] PCP - General Internal Medicine 12/08/21 Hayden Shah MD [address] [place] [address] Specialist Cardiovascular Disease 09/01/20 Pallavi Flood NP [address] [place] [address] Cardiology 09/01/20 documented as of this encounter
--- OUTSIDE RECORDS SUMMARY | 2024-10-17 18:11 | XMS_ITS | Encounter Summary ---
Author Organization [facility] Address [address] [place] [address] Care Team Providers Care Manager Fixed Income Name Role Phone Caitlyn Bowie MD Primary Care Provider +1- [phone] Encounter Details Date Type Department Care Team (Late st Contact Info) Description 01/07/2014 Documentation [facility] [address] [place] [address] Shilpi Ibarra [address] [place] [address] Social History Tobacco Use Types Packs/Day Years [...] Description 10/18/2024 10:30 AM EDT Office Visit [facility] [address] [place] [address] 202 [place] [address] Alfredo Michaud Jr., PA [address] [facility] [place] [address] 10/31/2024 1:00 PM EDT Office Visit [facility] at [facility] 20 [facility] - [address] [place], [place] [address] Ronald Mills MD [address] [address] documented as of this encounter Visit Diagnoses Not on filedocumented in this encounter Additional Health Concerns Infection Onset Date Last Indicated Resolved Time COVID-19 03/05/2022 03/05/2022 03/15/2022 7:18 PM EDT documented as of this encounter Care Teams Manager Fixed Income Relationship Specialty Start Date End Date Caitlyn Bowie MD 3400 [facility] 1 [place] [address] PCP - General Internal Medicine 05/06/21 Henry Kelly MD Pulmonary Department [address] [facility], [address] [place] [address] Physician Pulmonary Disease 09/06/17 06/22/20 documented as of this encounter
--- OUTSIDE RECORDS SUMMARY | 2024-10-17 18:11 | XMS_ITS | Encounter Summary ---
Author Organization [facility] Address [address] [place] [address] Care Team Providers Care Women'S Basketball Coach Name Role Phone Brennan Burnett MD Primary Care Provider Unavailab Hayden Montes MD Unavailable [phone] Pallavi Flood NP Unavailable [phone]- [phone] Caitlyn Bowie MD Primary Care Provider Unava ilable Encounter Details Date Type Department Care Team Description 09/15/2020 SCAN Medical Records [address] [place] [address] Abstract, Provider Social History Tobacco Use Types [...] on filedocumented in this encounter Care Teams Women'S Basketball Coach Relationship Specialty Start Date End Date Brennan Burnett MD PCP - General Internal Medicine 05/27/20 12/07/21 Caitlyn Bowie MD [address] [place] [address] PCP - General Internal Medicine 12/08/21 Hayden Shah MD [address] [place] [address] Specialist Cardiovascular Disease 09/01/20 Pallavi Flood NP [address] [place] [address] Cardiology 09/01/20 documented as of this encounter
--- OUTSIDE RECORDS SUMMARY | 2024-10-17 18:11 | XMS_ITS | Encounter Summary ---
Author Organization [facility] Address [address] [place] [address] Care Team Providers Care System Safety Engineer Name Role Phone Caitlyn Bowie MD Primary Care Provider +1- [phone] Encounter Details Date Type Department Care Team (Late st Contact Info) Description 06/25/2015 Scanned Document [facility] Health Information Management [address] [place] [address] External, Provider Social History Tobacco Use Types [...] Description 10/18/2024 10:30 AM EDT Office Visit [facility] [address] [place] [address] Alfredo Michaud Jr., EMELIA [address] [place] [address] [place] [address] 10/31/2024 1:00 PM EDT Office Visit Hematology Program at [address] - [address] [place] [address] Ronald Mills MD 240 [facility] Max [address] [place] [address] documented as of this encounter Visit Diagnoses Not on filedocumented in this encounter Additional Health Concerns Infection Onset Date Last Indicated Resolved Time COVID-19 03/05/2022 03/05/2022 03/15/2022 7:18 PM EDT documented as of this encounter Care Teams System Safety Engineer Relationship Specialty Start Date End Date Caitlyn Bowie MD 3400 [facility] 1 [place] [address] PCP - General Internal Medicine 05/06/21 Henry Kelly MD Pulmonary Department [address] [place] [address], [address] [place] [address] Physician Pulmonary Disease 09/06/17 06/22/20 documented as of this encounter
--- OUTSIDE RECORDS SUMMARY | 2024-10-17 18:11 | XMS_ITS | Encounter Summary ---
Author Organization [facility] Address [address] [place] [address] Care Team Providers Care Audio Visual Director Name Role Phone Caitlyn Bowie MD Primary Care Provider +1- [phone] Encounter Details Date Type Department Care Team (Late st Contact Info) Description 11/07/2014 Scanned Document [facility] Health Information Management [address] [place] [address] External, Provider Social History Tobacco Use Types [...] Description 10/18/2024 10:30 AM EDT Office Visit [facility] [address] [place] [address] Alfredo Michaud Jr., EMELIA [address] [place] [address] [place] [address] 10/31/2024 1:00 PM EDT Office Visit Hematology Program at [address] [place] [address] Ronald Mills MD 240 [facility] [address] [place] [address] documented as of this encounter Visit Diagnoses Not on filedocumented in this encounter Additional Health Concerns Infection Onset Date Last Indicated Resolved Time COVID-19 03/05/2022 03/05/2022 03/15/2022 7:18 PM EDT documented as of this encounter Care Teams Audio Visual Director Relationship Specialty Start Date End Date Catilyn Bowie MD 3400 [facility] 1 [place] [address] PCP - General Internal Medicine 05/06/21 Henry Kelly MD Pulmonary Department [address] [place] [address], [address] [place] [address] Physician Pulmonary Disease 09/06/17 06/22/20 documented as of this encounter
--- OUTSIDE RECORDS SUMMARY | 2024-10-17 18:11 | XMS_ITS | Encounter Summary ---
Author Organization [facility] Address [address] [place] [address] Care Team Providers Care Motion Picture Set Up Worker Name Role Phone Sharon Vides Primary Care Provider Unava ilable Brennan Burnett MD Primary Care Provider Unavailab Hayden Montes MD Unavailable [phone] Pallavi Flood NP Unavailable [phone]- [phone] Caitlyn Bowie MD Primary Care Provider Unava ilable Reason for Visit * Reason Onset Date Comments Pulmonary Problem 09/21/2018 [facility] Encounter Details Date Type Department Care Team Description 09/21/2018 Telephone Pulmonology - [address] [place] [address] Henry Kelly MD Pulmonary Problem ([facility]) Social History Tobacco Use [...] , OP notes and labs faxed to [facility]. * Telephone Encounter - Nasima Sr M.A. - 10/02/2018 11:57 AM EDT I called patient back and she has been scheduled with the [facility] for a PFT. * Telephone Encounter [...] her to a Dr Kerwin Menjivar in [place]. Please advise. * Telephone Encounter - Palmoa Kelly - 09/21/2018 8:53 AM EDT Symptoms patient is presenting: crackling on her lung If pain or injury related was it due to an accident at work or from a motor vehicle accident? NO If yes, gather 3[employer] republic[employer] insurance information Date of accident/Injury: How long has patient had these symptoms?: 2 days PCP: Sharon Vieds MD [place] / [place] / Product Type: MEDICARE [id number] documented in this encounter Plan of Treatment Not on file documented as of this encounter Visit Diagnoses Not on filedocumented in this encounter Care Teams Motion Picture Set Up Worker Relationship Specialty Start Date End Date Sharon Vides PCP - General Internal Medicine 08/02/18 05/26/20 Brennan Burnett MD PCP - General Internal Medicine 05/27/20 12/07/21 Caitlyn Bowie MD [address] [place] [address] PCP - General Internal Medicine 12/08/21 Hayden Shah MD [address] [place] [address] Specialist Cardiovascular Disease 09/01/20 Pallavi Flood NP [address] [place] [address] Cardiology 09/01/20 documented as of this encounter
--- OUTSIDE RECORDS SUMMARY | 2024-10-17 18:11 | XMS_ITS | Encounter Summary ---
Author Organization [facility] Address [address] [place] [address] Care Team Providers Care Writer Technical Publications Name Role Phone Caitlyn Bowie MD Primary Care Provider +1- [phone] Encounter Details Date Type Department Care Team (Late st Contact Info) Description 01/30/2018 Scanned Document [facility] Health Information Management [address] [place] [address] External, Provider Social History Tobacco Use Types [...] Description 10/18/2024 10:30 AM EDT Office Visit [facility] [address] [place] [address] Alfredo Michaud Jr., EMELIA [address] [place] [address] [place] [address] 10/31/2024 1:00 PM EDT Office Visit Hematology Program at [address] - [address] [place] [address] Ronald Mills MD [address] [place] [address] documented as of this encounter [...] documented as of this encounter Care Teams Writer Technical Publications Relationship Specialty Start Date End Date Caitlyn Bowie MD [address] [facility] 1 [place] [address] PCP - General Internal Medicine 05/06/21 Henry Kelly MD Pulmonary Department [address] [facility], [address] [place] [address] Physician Pulmonary Disease 09/06/17 06/22/20 documented as of this encounter
--- OUTSIDE RECORDS SUMMARY | 2024-10-17 18:11 | XMS_ITS | Encounter Summary ---
Author Organization [facility] Address [address] [place] [address] Care Team Providers Care Garment Manufacturing Supervisor Name Role Phone Caitlyn Bowie MD Primary Care Provider +1- [phone] Encounter Details Date Type Department Care Team (Late st Contact Info) Description 01/27/2018 Scanned Document [facility] Health Information Management [address] [place] [address] External, Provider Social History Tobacco Use Types [...] Description 10/18/2024 10:30 AM EDT Office Visit [facility] [address] [place] [address] Alfredo Michaud Jr., EMELIA [address] [place] [address] [place] [address] 10/31/2024 1:00 PM EDT Office Visit Hematology Program at [address] - [address] [place] [address] Ronald Mills MD [address] [place] [address] documented as of this encounter [...] as of this encounter Care Teams Garment Manufacturing Supervisor Relationship Specialty Start Date End Date Caitlyn Bowie MD [address] [facility] 1 [place] [address] PCP - General Internal Medicine 05/06/21 Henry Kelly MD Pulmonary Department 175 [facility], [address] [place] [address] Physician Pulmonary Disease 09/06/17 06/22/20 documented as of this encounter
--- OUTSIDE RECORDS SUMMARY | 2024-10-17 18:11 | XMS_ITS | Encounter Summary ---
Author Organization [facility] Address [address] [place] [address] Care Team Providers Care Linen Room Custodian Name Role Phone Caitlyn Bowie MD Primary Care Provider +1- [phone] Encounter Details Date Type Department Care Team (Late st Contact Info) Description 10/07/2013 Scanned Document Thoracic Oncology Program at [address] [address] Suzy Kong MD [address] [place] [address] Social History Tobacco Use Types Packs/Day [...] Description 10/18/2024 10:30 AM EDT Office Visit [facility] [address] [place] [address] Alfredo Michaud Jr., EMELIA [address] [place] [address] [place] [address] 10/31/2024 1:00 PM EDT Office Visit [facility] - [address] [facility] [place] [address] Ronald Mills MD [address] [facility] [address] [place] [address] documented as of this encounter Visit Diagnoses Not on filedocumented in this encounter Additional Health Concerns Infection Onset Date Last Indicated Resolved Time COVID-19 03/05/2022 03/05/2022 03/15/2022 7:18 PM EDT documented as of this encounter Care Teams Linen Room Custodian Relationship Specialty Start Date End Date Caitlyn Bowie MD 3400 [facility] 1 [place] [address] PCP - General Internal Medicine 05/06/21 Henry Kelly MD Pulmonary Department [address] [place] [address], [address] [place] [address] Physician Pulmonary Disease 09/06/17 06/22/20 documented as of this encounter
--- OUTSIDE RECORDS SUMMARY | 2024-10-17 18:11 | XMS_ITS | Encounter Summary ---
Author Organization [facility] Address [address] [place] [address] Care Team Providers Care Talent Recruiter Name Role Phone Caitlyn Bowie MD Primary Care Provider +1- [phone] Encounter Details Date Type Department Care Team (Late st Contact Info) Description 02/03/2021 Scanned Document INTERFACE DEFAULT [address] [place] [address] System, Provider Not In Social History Tobacco [...] Description 10/18/2024 10:30 AM EDT Office Visit [facility] [address] [place] [address] Alfredo Michaud Jr., PA [address] [place] [address] [place] [address] 10/31/2024 1:00 PM EDT Office Visit [facility] at [address] - [address] [facility] [place] [address] Ronald Mills MD 240 [facility] [address] [place] [address] documented as of this encounter [...] as of this encounter Care Teams Talent Recruiter Relationship Specialty Start Date End Date Caitlyn Bowie MD [address] [address] PCP - General Internal Medicine 05/06/21 documented as of this encounter
--- OUTSIDE RECORDS SUMMARY | 2024-10-17 18:11 | XMS_ITS | Encounter Summary ---
Author Organization [facility] Address [address] [place] [address] Care Team Providers Care Mixing House Operator Name Role Phone Caitlyn Bowie MD Primary Care Provider +1- [phone] Encounter Details Date Type Department Care Team (Late st Contact Info) Description 04/28/2015 Scanned Document [facility] Health Information Management [address] [place] [address] External, Provider Social History Tobacco Use Types [...] Description 10/18/2024 10:30 AM EDT Office Visit [facility] [address] [place] [address] Alfredo Michaud Jr., EMELIA [address] [place] [address] [place] [address] 10/31/2024 1:00 PM EDT Office Visit Hematology Program at [address] - [address] [place] [address] Ronald Mills MD [address] [facility] [address] [place] [address] documented as of this encounter Visit Diagnoses Not on filedocumented in this encounter Additional Health Concerns Infection Onset Date Last Indicated Resolved Time COVID-19 03/05/2022 03/05/2022 03/15/2022 7:18 PM EDT documented as of this encounter Care Teams Mixing House Operator Relationship Specialty Start Date End Date Caitlyn Bowie MD 3400 [facility] 1 [place] [address] PCP - General Internal Medicine 05/06/21 Henry Kelly MD Pulmonary Department [address] [place] [address], [address] [place] [address] Physician Pulmonary Disease 09/06/17 06/22/20 documented as of this encounter
--- OUTSIDE RECORDS SUMMARY | 2024-10-17 18:11 | XMS_ITS | Encounter Summary ---
Author Organization [facility] Address [address] [place] [address] Care Team Providers Care Millstone Cleaner Name Role Phone Brennan Burnett MD Primary Care Provider Unavailab Hayden Montes MD Unavailable [phone] Pallavi Flood NP Unavailable [phone]- [phone] Caitlyn Bowie MD Primary Care Provider Unava ilable Encounter Details Date Type Department Care Team Description 09/30/2020 [facility] Medical Records [address] [place] [address] Social History Tobacco Use Types Packs/Day Years [...] on filedocumented in this encounter Care Teams Millstone Cleaner Relationship Specialty Start Date End Date Brennan Burnett MD PCP - General Internal Medicine 05/27/20 12/07/21 Caitlyn Bowie MD [address] [place] [address] PCP - General Internal Medicine 12/08/21 Hayden Shah MD [address] [place] [address] Specialist Cardiovascular Disease 09/01/20 Pallavi Flood NP [address] [place] [address] Cardiology 09/01/20 documented as of this encounter
--- OUTSIDE RECORDS SUMMARY | 2024-10-17 18:11 | XMS_ITS | Encounter Summary ---
Author Organization [facility] Address [address] [place] [address] Care Team Providers Care Commercial Real Estate Broker Name Role Phone Caitlyn Bowie MD Primary Care Provider +1- [phone] Encounter Details Date Type Department Care Team (Late Contact Info) Description 02/03/2021 Scanned Document [facility] Health Information Management [address] [place] [address] External, Provider Social History Tobacco Use Types [...] Description 10/18/2024 10:30 AM EDT Office Visit [facility] [address] [place] [address] Alfredo Michaud Jr., PA [address] [place] [address] [place] [address] 10/31/2024 1:00 PM EDT Office Visit [facility] at [address] - [address] [facility] [place] [address] Ronald Mills MD 240 [facility] [address] [place] [address] documented as of this encounter [...] as of this encounter Care Teams Commercial Real Estate Broker Relationship Specialty Start Date End Date Caitlyn Bowie MD [facility] [address] [address] PCP - General Internal Medicine 05/06/21 documented as of this encounter
--- OUTSIDE RECORDS SUMMARY | 2024-10-17 18:11 | XMS_ITS | Encounter Summary ---
Author Organization [facility] Address [address] [place] [address] Care Team Providers Care Loan Analyst Name Role Phone Caitlyn Bowie MD Primary Care Provider +1- [phone] Encounter Details Date Type Department Care Team ([facility] st Contact Info) Description 08/26/2014 Documentation [facility] [address] [place] [address] Shilpi Ibarra [address] [place] [address] Social History Tobacco Use Types Packs/Day Years [...] from the original note were not included. [facility] Progress Note This is a 69 y.o. female who was provided services by [facility]. Service Provided By:: Shilpi Ibarra Patient Status: return Length of Appointment: 60 minutes documented in this encounter Plan of Treatment Upcoming Encounters Date Type Department Care Team (Late st Contact Info) Description 10/18/2024 10:30 AM EDT Office Visit [facility] [address] [facility] [address] [place] [address] Alfredo Michaud Jr., PA [address] [place] [address] 10/31/2024 1:00 PM EDT Office Visit Hematology Program at [address] - [address] [facility] [place] [address] Ronald Mills MD 240 [facility] [address] [place] [address] documented as of this encounter Visit Diagnoses Not on filedocumented in this encounter Additional Health Concerns Infection Onset Date Last Indicated Resolved Time COVID-19 03/05/2022 03/05/2022 03/15/2022 7:18 PM EDT documented as of this encounter Care Teams Loan Analyst Relationship Specialty Start Date End Date Caitlyn Bowie MD [address] [place] [address] PCP - General Internal Medicine 05/06/21 Henry Kelly MD Pulmonary Department [address] [facility], [address] [place] [address] Physician Pulmonary Disease 09/06/17 06/22/20 documented as of this encounter
--- OUTSIDE RECORDS SUMMARY | 2024-10-17 18:11 | XMS_ITS | Encounter Summary ---
Author Organization [facility] Address [address] [place] [address] Care Team Providers Care Review Specialist Name Role Phone Caitlyn Bowie MD Primary Care Provider +1- [phone] Encounter Details Date Type Department Care Team (Late Contact Info) Description 01/13/2021 Scanned Document Cancer Center at [address] [address] External, Provider Social History Tobacco Use Types [...] Description 10/18/2024 10:30 AM EDT Office Visit [facility] [address] [place] [address] Alfredo Michaud Jr., PA [address] [place] [address] [place] [address] 10/31/2024 1:00 PM EDT Office Visit Hematology Program at [address] [facility] [place] [facility] [place] [address] Ronald Mills MD 240 [facility] [address] [place] [address] documented as of this encounter [...] documented as of this encounter Care Teams Review Specialist Relationship Specialty Start Date End Date Caitlyn Bowie MD [address] [address] PCP - General Internal Medicine 05/06/21 documented as of this encounter
--- OUTSIDE RECORDS SUMMARY | 2024-10-17 18:11 | XMS_ITS | Encounter Summary ---
Author Organization [facility] Address [address] [place] [address] Care Team Providers Care Wood Carver Name Role Phone Caitlyn Bowie MD Primary Care Provider +1- [phone] Encounter Details Date Type Department Care Team (Late st Contact Info) Description 02/02/2018 Scanned Document [facility] Health Information Management [address] [place] [address] External, Provider Social History Tobacco Use Types [...] Description 10/18/2024 10:30 AM EDT Office Visit [facility] [address] [place] [address] Alfredo Michaud Jr., EMELIA [address] [place] [address] [place] [address] 10/31/2024 1:00 PM EDT Office Visit Hematology Program at [address] - [address] [place] [address] Ronald Mills MD [address] [place] [address] documented as of this encounter Visit Diagnoses Not on filedocumented in this encounter Additional Health Concerns Infection Onset Date Last Indicated Resolved Time COVID-19 03/05/2022 03/05/2022 03/15/2022 7:18 PM EDT documented as of this encounter Care Teams Wood Carver Relationship Specialty Start Date End Date Caitlyn Bowie MD 3400 [facility] 1 [place] [address] PCP - General Internal Medicine 05/06/21 Henry Kelly MD Pulmonary Department [address] [place] [address], [address] [place] [address] Physician Pulmonary Disease 09/06/17 06/22/20 documented as of this encounter
--- OUTSIDE RECORDS SUMMARY | 2024-10-17 18:11 | XMS_ITS | Encounter Summary ---
Author Organization [facility] Address [address] [place] [address] Care Team Providers Care Resistance Welder Name Role Phone Sharon Vides Primary Care Provider Brennan Castro MD Primary Care Provider Unavailab Hayden Montes MD Unavailable [phone] Pallavi Flood NP Unavailable [phone]- [phone] Caitlyn Bowie MD Primary Care Provider Johnathon shaver Encounter Details Date Type Department Care Team Description 08/28/2018 Commission Auditor Report Medical Records [address] [place] [address] Abstract, Provider Social History Tobacco Use Types [...] on filedocumented in this encounter Care Teams Resistance Welder Relationship Specialty Start Date End Date Sharon Vides PCP - General Internal Medicine 08/02/18 05/26/20 Brennan Burnett MD PCP - General Internal Medicine 05/27/20 12/07/21 Caitlyn Bowie MD [address] [place] [address] PCP - General Internal Medicine 12/08/21 Hayden Shah MD [address] [place] [address] Specialist Cardiovascular Disease 09/01/20 Pallavi Flood NP [address] [place] [address] Cardiology 09/01/20 documented as of this encounter
--- OUTSIDE RECORDS SUMMARY | 2024-10-17 18:11 | XMS_ITS | Encounter Summary ---
Author Organization [facility] Address [address] [place] [address] Care Team Providers Care Copper Roller Handler Printing Name Role Phone Caitlyn Bowei MD Primary Care Provider +1- [phone] Encounter Details Date Type Department Care Team (Late st Contact Info) Description 02/11/2021 Scanned Document INTERFACE DEFAULT [address] [place] [address] System, Provider Not In Social History Tobacco [...] Description 10/18/2024 10:30 AM EDT Office Visit [facility] [address] [place] [address] Alfredo Michaud Jr., PA [address] [place] [address] [place] [address] 10/31/2024 1:00 PM EDT Office Visit [facility] at [address] - [address] [facility] [place] [address] Ronald Mills MD [address] [place] [address] documented as of this encounter [...] documented as of this encounter Care Teams Copper Roller Handler Printing Relationship Specialty Start Date End Date Caitlyn Bowie MD [address] [address] PCP - General Internal Medicine 05/06/21 documented as of this encounter
--- OUTSIDE RECORDS SUMMARY | 2024-10-17 18:11 | XMS_ITS | Encounter Summary ---
Author Organization [facility] Address [address] [place] [address] Care Team Providers Care Cement Loader Name Role Phone Sharon Vides Primary Care Provider Unava ilable Brennan Burnett MD Primary Care Provider Unavailab Hayden Montes MD Unavailable [phone] Pallavi Flood NP Unavailable [phone] Caitlyn Bowie MD Primary Care Provider Unava ilable Reason for Visit * Reason Onset Date Comments Wheezing 10/29/2018 Encounter Details Date Type Department Care Team Description 10/29/2018 Telephone Pulmonology - [address] [place] [address] Henry Kelly MD Wheezing Social History [...] / Plan[place] / Product Type: MEDICARE [id number] documented in this encounter Plan of Treatment Not on file documented as of this encounter Visit Diagnoses Not on filedocumented in this encounter Care Teams Cement Loader Relationship Specialty Start Date End Date Sharon Vides PCP - General Internal Medicine 08/02/18 05/26/20 Brennan Burnett MD PCP - General Internal Medicine 05/27/20 12/07/21 Caitlyn Bowie MD [address] [place] [address] PCP - General Internal Medicine 12/08/21 Hayden Shah MD [address] [place] [address] Specialist Cardiovascular Disease 09/01/20 Pallavi Flood NP [address] [place] [address] Cardiology 09/01/20 documented as of this encounter
--- OUTSIDE RECORDS SUMMARY | 2024-10-17 18:11 | XMS_ITS | Encounter Summary ---
Author Organization [facility] Address [address] [place] [address] Care Team Providers Care Hand Or Machine Paster Name Role Phone Sharon Vides Primary Care Provider Brennan Castro MD Primary Care Provider Unavailab Hayden Montes MD Unavailable [phone] Pallavi Flood NP Unavailable [phone]- [phone] Caitlyn Bowie MD Primary Care Provider Johnathon shaver Encounter Details Date Type Department Care Team Description 11/06/2018 Color Paste Mixing Supervisor Report Medical Records [address] [place] [address] Abstract, Provider Social History Tobacco Use Types [...] filedocumented in this encounter Care Teams Hand Or Machine Paster Relationship Specialty Start Date End Date Sharon Vides PCP - General Internal Medicine 08/02/18 05/26/20 Brennan Burnett MD PCP - General Internal Medicine 05/27/20 12/07/21 Caitlyn Bowie MD [address] [place] [address] PCP - General Internal Medicine 12/08/21 Hayden Shah MD [address] [place] [address] Specialist Cardiovascular Disease 09/01/20 Pallavi Flood NP [address] [place] [address] Cardiology 09/01/20 documented as of this encounter
--- OUTSIDE RECORDS SUMMARY | 2024-10-17 18:11 | XMS_ITS | Encounter Summary ---
Author Organization [facility] and [facility] Address [address] [place] [address] Care Team Providers Care Risk Officer Name Role Phone Caitlyn Bowie MD Primary Care Provider +1- [phone] Encounter Details Date Type Department Care Team (Late st Contact Info) Description 05/14/2015 Scanned Document [facility] Health Information Management [address] [place] [address] External, Provider Social History Tobacco Use Types [...] Description 10/18/2024 10:30 AM EDT Office Visit [facility] [address] [place] [address] Alfredo Michaud Jr., EMELIA [address] [place] [address] [place] [address] 10/31/2024 1:00 PM EDT Office Visit Hematology Program at [address] [place] [address] Ronald Mills MD 240 [facility] [address] [place] [address] documented as of this encounter Visit Diagnoses Not on filedocumented in this encounter Additional Health Concerns Infection Onset Date Last Indicated Resolved Time COVID-19 03/05/2022 03/05/2022 03/15/2022 7:18 PM EDT documented as of this encounter Care Teams Risk Officer Relationship Specialty Start Date End Date Caitlyn Bowie MD 3400 [facility] 1 [place] [address] PCP - General Internal Medicine 05/06/21 Henry Kelly MD Pulmonary Department [address] [place] [address], [address] [place] [address] Physician Pulmonary Disease 09/06/17 06/22/20 documented as of this encounter
--- OUTSIDE RECORDS SUMMARY | 2024-10-17 18:11 | XMS_ITS | Encounter Summary ---
Author Organization [facility] and [facility] Address [address] [place] [address] Care Team Providers Care Machinist Apprentice Wood Name Role Phone Caitlyn Bowie MD Primary Care Provider +1- [phone] Encounter Details Date Type Department Care Team (Late st Contact Info) Description 09/01/2017 Scanned Document [facility] Health Information Management [address] [place] [address] External, Provider Social History Tobacco Use Types [...] Description 10/18/2024 10:30 AM EDT Office Visit [facility] [address] [place] [address] Alfredo Michaud Jr., EMELIA [address] [place] [address] [place] [address] 10/31/2024 1:00 PM EDT Office Visit Hematology Program at [address] - [address] [place] [address] Ronald Mills MD [address] [place] [address] documented as of this encounter [...] documented as of this encounter Care Teams Machinist Apprentice Wood Relationship Specialty Start Date End Date Caitlyn Bowie MD 3400 [facility] 1 [place] [address] PCP - General Internal Medicine 05/06/21 Henry Kelly MD Pulmonary Department 175 [facility], [address] [place] [address] Physician Pulmonary Disease 09/06/17 06/22/20 documented as of this encounter
--- OUTSIDE RECORDS SUMMARY | 2024-10-17 18:11 | XMS_ITS | Encounter Summary ---
Author Organization [facility] and [facility] Address [address] [place] [address] Care Team Providers Care Italian Teacher Name Role Phone Caitlyn Bowie MD Primary Care Provider +1- [phone] Encounter Details Date Type Department Care Team (Late st Contact Info) Description 11/29/2017 Scanned Document [facility] Health Information Management [address] [place] [address] External, Provider Social History Tobacco Use Types [...] Description 10/18/2024 10:30 AM EDT Office Visit [facility] [address] [place] [address] Alfredo Michaud Jr., EMELIA [address] [place] [address] [place] [address] 10/31/2024 1:00 PM EDT Office Visit Hematology Program at [address] - [address] [place] [address] Ronald Mills MD [address] [place] [address] documented as [...] documented as of this encounter Care Teams Italian Teacher Relationship Specialty Start Date End Date Caitlyn Bowie MD 3400 [facility] 1 [place] [address] PCP - General Internal Medicine 05/06/21 Henry Kelly MD Pulmonary Department 175 [facility], [address] [place] [address] Physician Pulmonary Disease 09/06/17 06/22/20 documented as of this encounter
--- OUTSIDE RECORDS SUMMARY | 2024-10-17 18:11 | XMS_ITS | Encounter Summary ---
Author Organization [facility] and [facility] Address [address] [place] [address] Care Team Providers Care Medieval English Literature Professor Name Role Phone Caitlyn Bowie MD Primary Care Provider +1- [phone] Encounter Details Date Type Department Care Team (Late st Contact Info) Description 09/18/2020 Scanned Document INTERFACE DEFAULT [address] [place] [address] System, Provider Not In Social History Tobacco [...] 10/18/2024 10:30 AM EDT Office Visit [facility] [address] [place] [address] Alfredo Michaud Jr., PA [address] [place] [address] [place] [address] 10/31/2024 1:00 PM EDT [facility] at [address] - [address] [facility] [place] [address] Ronald Mills MD 240 [facility] Max [address] [place] [address] documented as of this encounter Visit Diagnoses Not on filedocumented in this encounter Additional Health Concerns Infection Onset Date Last Indicated Resolved Time COVID-19 03/05/2022 03/05/2022 03/15/2022 7:18 PM EDT Assessment Noted Time PHQ-9 Depression Total Score: 2 11/07/19 19 2:06 PM EDT documented as of this encounter Care Teams Medieval English Literature Professor Relationship Specialty Start Date End Date Caitlyn Bowie MD [address] [address] PCP - General Internal Medicine 05/06/21 documented as of this encounter
--- OUTSIDE RECORDS SUMMARY | 2024-10-17 18:11 | XMS_ITS | Encounter Summary ---
Author Organization [facility] and [facility] Address [address] [place] [address] Care Team Providers Care Mine Exploration Engineer Name Role Phone Caitlyn Bowie MD Primary Care Provider +1- [phone] Encounter Details Date Type Department Care Team (Late st Contact Info) Description 12/21/2020 Scanned Document INTERFACE DEFAULT [address] [place] [address] System, Provider Not In Social History Tobacco [...] Description 10/18/2024 10:30 AM EDT Office Visit [facility] [address] [place] [address] Alfredo Michaud Jr., PA [address] [place] [address] [place] [address] 10/31/2024 1:00 PM EDT [facility] Visit [facility] at [address] - [address] [facility] [place] [address] Ronald Mills MD 240 [facility] [address]1 [place] [address] documented as of this encounter Visit Diagnoses Not on filedocumented in this encounter Additional Health Concerns Infection Onset Date Last Indicated Resolved Time COVID-19 03/05/2022 03/05/2022 03/15/2022 7:18 PM EDT Assessment Noted Time PHQ-9 Depression Total Score: 2 11/07/19 19 2:06 PM EDT documented as of this encounter Care Teams Mine Exploration Engineer Relationship Specialty Start Date End Date Caitlyn Bowie MD [address] [address] PCP - General Internal Medicine 05/06/21 documented as of this encounter
--- OUTSIDE RECORDS SUMMARY | 2024-10-17 18:11 | XMS_ITS | Encounter Summary ---
Author Organization [facility] and [facility] Address [address] [place] [address] Care Team Providers Care Eligibility Consultant Name Role Phone Caitlyn Bowie MD Primary Care Provider +1- [phone] Encounter Details Date Type Department Care Team (Late st Contact Info) Description 02/07/2021 Scanned Document INTERFACE DEFAULT [address] [place] [address] System, Provider Not In Social History Tobacco [...] Description 10/18/2024 10:30 AM EDT Office Visit [facility] [address] [place] [address] Alfredo Michaud Jr., PA [address] [place] [address] [place] [address] 10/31/2024 1:00 PM EDT Office Visit [facility] at [address] - [address] [facility] [place] [address] Ronald Mills MD [address] [place] [address] documented as of this encounter [...] as of this encounter Care Teams Eligibility Consultant Relationship Specialty Start Date End Date Caitlyn Bowie MD [address] [address] PCP - General Internal Medicine 05/06/21 documented as of this encounter
--- OUTSIDE RECORDS SUMMARY | 2024-10-17 18:11 | XMS_ITS | Encounter Summary ---
Author Organization [facility] and [facility] Address [address] [place] [address] Care Team Providers Care Medical Reception Specialist Name Role Phone Caitlyn Bowie MD Primary Care Provider +1- [phone] Encounter Details Date Type Department Care Team (Late st Contact Info) Description 02/01/2018 Scanned Document [facility] Health Information Management [address] [place] [address] External, Provider Social History Tobacco Use Types [...] Description 10/18/2024 10:30 AM EDT Office Visit [facility] [address] [place] [address] Alfredo Michaud Jr., EMELIA [address] [place] [address] [place] [address] 10/31/2024 1:00 PM EDT Office Visit Hematology Program at [address] - [address] [place] [address] Ronald Mills MD [address] [place] [address] documented as of this encounter [...] as of this encounter Care Teams Medical Reception Specialist Relationship Specialty Start Date End Date Caitlyn Bowie MD 3400 [facility] 1 [place] [address] PCP - General Internal Medicine 05/06/21 Henry Kelly MD Pulmonary Department 175 [facility], [address] [place] [address] Physician Pulmonary Disease 09/06/17 06/22/20 documented as of this encounter
--- OUTSIDE RECORDS SUMMARY | 2024-10-17 18:11 | XMS_ITS | Encounter Summary ---
Author Organization [facility] Address [address] [place] [address] Care Team Providers Care Rubber Press Operator Name Role Phone Sharon Vides Primary Care Provider Brennan Castro MD Primary Care Provider Unavailab Hayden Montes MD Unavailable [phone] Pallavi Flood NP Unavailable [phone]- [phone] Caitlyn Bowie MD Primary Care Provider Johnathon shaver Encounter Details Date Type Department Care Team Description 11/26/2018 Pt. Non Urgent Medic al Question Pulmonology - [place] 175 [facility] [address] [place] [address] Henry Kelly MD Social History [...] on filedocumented in this encounter Care Teams Rubber Press Operator Relationship Specialty Start Date End Date Sharon Vides PCP - General Internal Medicine 08/02/18 05/26/20 Brennan Burnett MD PCP - General Internal Medicine 05/27/20 12/07/21 Caitlyn Bowie MD [address] [place] [address] PCP - General Internal Medicine 12/08/21 Hayden Shah MD [address] [place] [address] Specialist Cardiovascular Disease 09/01/20 Pallavi Flood NP [address] [place] [address] Cardiology 09/01/20 documented as of this encounter
--- OUTSIDE RECORDS SUMMARY | 2024-10-17 18:11 | XMS_ITS | Encounter Summary ---
Author Organization [facility] Address [address] [place] [address] Care Team Providers Care Nutrition Club Ambassador Name Role Phone Sharon Vides Primary Care Provider Brennan Castro MD Primary Care Provider Unavailab Hayden Montes MD Unavailable [phone] Pallavi Flood NP Unavailable [phone]- [phone] Caitlyn Bowie MD Primary Care Provider Johnathon shaver Encounter Details Date Type Department Care Team Description 09/01/2018 Release of Information Medical Records [address] [place] [address] Abstract, Provider Social History Tobacco Use Types [...] on filedocumented in this encounter Care Teams Nutrition Club Ambassador Relationship Specialty Start Date End Date Sharon Vides PCP - General Internal Medicine 08/02/18 05/26/20 Brennan Burnett MD PCP - General Internal Medicine 05/27/20 12/07/21 Caitlyn Bowie MD [address] [place] [address] PCP - General Internal Medicine 12/08/21 Hayden Shah MD [address] [place] [address] Specialist Cardiovascular Disease 09/01/20 Pallavi Flood NP [address] [place] [address] Cardiology 09/01/20 documented as of this encounter
--- OUTSIDE RECORDS SUMMARY | 2024-10-17 18:11 | XMS_ITS | Encounter Summary ---
Author Organization [facility] and [facility] Address [address] [place] [address] Care Team Providers Care Credit Risk Analyst Name Role Phone Caitlyn Bowie MD Primary Care Provider +1- [phone] Encounter Details Date Type Department Care Team (Late st Contact Info) Description 11/09/2014 Scanned Document [facility] Health Information Management [address] [place] [address] External, Provider Social History Tobacco Use Types [...] 10/18/2024 10:30 AM EDT Office Visit [facility] [address] [place] [address] Alfredo Michaud Jr., EMELIA [address] [place] [address] [place] [address] 10/31/2024 1:00 PM EDT Office Visit Hematology Program at [address] - [address] [place] [address] Ronald Mills MD 240 [facility] [address] [place] [address] documented as of this encounter Visit Diagnoses Not on filedocumented in this encounter Additional Health Concerns Infection Onset Date Last Indicated Resolved Time COVID-19 03/05/2022 03/05/2022 03/15/2022 7:18 PM EDT documented as of this encounter Care Teams Credit Risk Analyst Relationship Specialty Start Date End Date Caitlyn Bowie MD 3400 [facility] 1 [place] [address] PCP - General Internal Medicine 05/06/21 Henry Kelly MD Pulmonary Department [address] [place] [address], [address] [place] [address] Physician Pulmonary Disease 09/06/17 06/22/20 documented as of this encounter
--- OUTSIDE RECORDS SUMMARY | 2024-10-17 18:11 | XMS_ITS | Encounter Summary ---
Author Organization [facility] and [facility] Address [address] [place] [address] Care Team Providers Care Foreign Language Interpreter Name Role Phone Caitlyn Bowie MD Primary Care Provider +1- [phone] Encounter Details Date Type Department Care Team (Late Contact Info) Description 01/27/2021 Scanned Document Cancer Center at [address] [address] External, Provider Social History Tobacco Use [...] Description 10/18/2024 10:30 AM EDT Office Visit [facility] [address] [place] [address] Alfredo Michaud Jr., PA [address] [place] [address] [place] [address] 10/31/2024 1:00 PM EDT Office Visit Hematology Program at [address] [facility] [place] [address] Ronald Mills MD 240 [facility] [address]1 [place] [address] documented as of this encounter [...] documented as of this encounter Care Teams Foreign Language Interpreter Relationship Specialty Start Date End Date Caitlyn Bowie MD [address] [address] PCP - General Internal Medicine 05/06/21 documented as of this encounter
--- OUTSIDE RECORDS SUMMARY | 2024-10-17 18:11 | XMS_ITS | Encounter Summary ---
Author Organization [facility] Address [address] [place] [address] Care Team Providers Care Quirk Sander Name Role Phone Sharon Vides Primary Care Provider Brennan Castro MD Primary Care Provider Unavailab Hayden Montes MD Unavailable [phone] Pallavi Flood NP Unavailable [phone]- [phone] Caitlyn Bowie MD Primary Care Provider Johnathon shaver Encounter Details Date Type Department Care Team Description 01/09/2019 Hospital Medical Records 4 [place] [address] Norma Mendoza MD [address] [place] [address] Social History Tobacco Use Types Packs/Day Years [...] on filedocumented in this encounter Care Teams Quirk Sander Relationship Specialty Start Date End Date Sharon Vides PCP - General Internal Medicine 08/02/18 05/26/20 Brennan Burnett MD PCP - General Internal Medicine 05/27/20 12/07/21 Caitlyn Bowie MD [address] [place] [address] PCP - General Internal Medicine 12/08/21 Hayden Shah MD [address] [place] [address] Specialist Cardiovascular Disease 09/01/20 Pallavi Flood NP [address] [place] [phone] Cardiology 09/01/20 documented as of this encounter
--- OUTSIDE RECORDS SUMMARY | 2024-10-17 18:12 | XMS_ITS | Encounter Summary ---
Author Organization [facility] and [facility] Address [address] [place] [address] Care Team Providers Care Disaster Response Director Name Role Phone Caitlyn Bowie MD Primary Care Provider +1- [phone] Encounter Details Date Type Department Care Team (Late Contact Info) Description 05/17/2021 Scanned Document Cancer Center at [address] [address] External, Provider Social History Tobacco Use Types [...] Description 10/18/2024 10:30 AM EDT Office Visit [facility] [address] [place] [address] Alfredo Michaud Jr., PA [address] [place] [address] [place] [address] 10/31/2024 1:00 PM EDT Office Visit Hematology Program at [address] [facility] [place] [address] Ronald Mills MD 240 [facility] Max [address]1 [place] [address] documented as of this encounter [...] documented as of this encounter Care Teams Disaster Response Director Relationship Specialty Start Date End Date Caitlyn Bowie MD [address] [address] PCP - General Internal Medicine 05/06/21 documented as of this encounter
--- OUTSIDE RECORDS SUMMARY | 2024-10-17 18:12 | XMS_ITS | Encounter Summary ---
Author Organization [facility] and [facility] Address [address] [place] [address] Care Team Providers Care Exchange Trouble Shooter Name Role Phone Caitlyn Bowie MD Primary Care Provider +1- [phone] Encounter Details Date Type Department Care Team (Late Contact Info) Description 11/18/2021 Scanned Document [facility] Health Information Management [address] [place] [address] External, Provider Social History Tobacco Use Types [...] Description 10/18/2024 10:30 AM EDT Office Visit [facility] [address] [place] [address] Alfredo Michaud Jr., PA [address] [place] [address] [place] [address] 10/31/2024 1:00 PM EDT [facility] Visit [facility] at [address] - [address] [facility] [place] [address] Ronald Mills MD 240 [facility] A1 [place] [address] documented as of this encounter Visit Diagnoses Not on filedocumented in this encounter Additional Health Concerns Infection Onset Date Last Indicated Resolved Time COVID-19 03/05/2022 03/05/2022 03/15/2022 7:18 PM EDT Assessment Noted Time PHQ-9 Depression Total Score: 2 11/07/19 19 2:06 PM EDT documented as of this encounter Care Teams Exchange Trouble Shooter Relationship Specialty Start Date End Date Caitlyn Bowie MD [address] [address] PCP - General Internal Medicine 05/06/21 documented as of this encounter
--- OUTSIDE RECORDS SUMMARY | 2024-10-17 18:12 | XMS_ITS | Encounter Summary ---
Author Organization [facility] Address [address] [place] [address] Care Team Providers Care Pond Scaler Name Role Phone Caitlyn Bowie MD Primary Care Provider +1- [phone] Encounter Details Date Type Department Care Team (Late st Contact Info) Description 12/28/2021 Scanned Document INTERFACE DEFAULT [address] [place] [address] System, Provider Not In Social History Tobacco [...] Description 10/18/2024 10:30 AM EDT Office Visit [facility] [address] [place] [address] Alfredo Michaud Jr., PA [address] [place] [address] [place] [address] 10/31/2024 1:00 PM EDT Office Visit [facility] at [address] - [address] [facility] [place] [address] Ronald Mills MD 240 [facility] Max A1 [place] [address] documented as of this encounter Visit Diagnoses Not on filedocumented in this encounter Additional Health Concerns Infection Onset Date Last Indicated Resolved Time COVID-19 03/05/2022 03/05/2022 03/15/2022 7:18 PM EDT Assessment Noted Time PHQ-9 Depression Total Score: 2 11/07/19 19 2:06 PM EDT documented as of this encounter Care Teams Pond Scaler Relationship Specialty Start Date End Date Caitlyn Bowie MD [address] [address] PCP - General Internal Medicine 05/06/21 documented as of this encounter
--- OUTSIDE RECORDS SUMMARY | 2024-10-17 18:12 | XMS_ITS | Encounter Summary ---
Author Organization [facility] and [facility] Address [address] [place] [address] Care Team Providers Care Teacher Vocal Name Role Phone Caitlyn Bowie MD Primary Care Provider +1- [phone] Encounter Details Date Type Department Care Team (Late st Contact Info) Description 04/26/2021 Scanned Document INTERFACE DEFAULT [address] [place] [address] System, Provider Not In Social History Tobacco [...] Description 10/18/2024 10:30 AM EDT Office Visit [facility] [address] [place] [address] Alfredo Michaud Jr., PA [address] [place] [address] [place] [address] 10/31/2024 1:00 PM EDT Office Visit [facility] at [address] - [address] [facility] [place] [facility] [place] [address] Ronald Mills MD [address] [place] [address] documented as of this encounter [...] 03/05/2022 03/05/2022 03/15/2022 7:1 8 PM EDT Assessment Noted Time PHQ-9 Depression Total Score: 2 11/07/19 19 2:06 PM EDT documented as of this encounter Care Teams Teacher Vocal Relationship Specialty Start Date End Date Caitlyn Bowie MD [address] [address] PCP - General Internal Medicine 05/06/21 documented as of this encounter
--- OUTSIDE RECORDS SUMMARY | 2024-10-17 18:12 | XMS_ITS | Encounter Summary ---
Author Organization [facility] Address [address] [place] [address] Care Team Providers Care Cost Recorder Name Role Phone Caitlyn Bowie MD Primary Care Provider +1- [phone] Encounter Details Date Type Department Care Team (Late Contact Info) Description 06/07/2021 Scanned Document [facility] at [address] [address] External, Provider Social History Tobacco Use Types [...] Description 10/18/2024 10:30 AM EDT Office Visit [facility] [address] [place] [address] Alfredo Michaud Jr., PA [address] [place] [address] [place] [address] 10/31/2024 1:00 PM EDT Office Visit Hematology Program at [address] [facility] [place] [facility] [place] [address] Ronald Mills MD 240 [facility] [address]1 [place] [address] documented as of this encounter Visit Diagnoses Not on filedocumented in this encounter Additional Health Concerns Infection Onset Date Last Indicated Resolved Time COVID-19 03/05/2022 03/05/2022 03/15/2022 7:18 PM EDT Assessment Noted Time PHQ-9 Depression Total Score: 2 11/07/19 19 2:06 PM EDT documented as of this encounter Care Teams Cost Recorder Relationship Specialty Start Date End Date Caitlyn Bowie MD [address] [address] PCP - General Internal Medicine 05/06/21 documented as of this encounter
--- OUTSIDE RECORDS SUMMARY | 2024-10-17 18:12 | XMS_ITS | Encounter Summary ---
Author Organization [facility] and [facility] Address [address] [place] [address] Care Team Providers Care Pulp House Supervisor Name Role Phone Caitlyn Bowie MD Primary Care Provider +1- [phone] Encounter Details Date Type Department Care Team (Late st Contact Info) Description 06/07/2021 Scanned Document [facility] at [address] [place] [address] Norma Renee MD [address] [place] [address] 2 [place] [address] Social History Tobacco Use Types [...] Description 10/18/2024 10:30 AM EDT Office Visit [facility] [address] [place] [address] Alfredo Michaud Jr., EMELIA [address] [place] [address] [place] [phone] 10/31/2024 1:00 PM EDT Office Visit [facility] at [address] - [address]301 [facility] [place] [address] Ronald Mills MD [address] [address] documented as of this encounter Visit Diagnoses Not on filedocumented in this encounter Additional Health Concerns Infection Onset Date Last Indicated Resolved Time COVID-19 03/05/2022 03/05/2022 03/15/2022 7:18 PM EDT Assessment Noted Time PHQ-9 Depression Total Score: 2 11/07/19 19 2:06 PM EDT documented as of this encounter Care Teams Pulp House Supervisor Relationship Specialty Start Date End Date Caitlyn Bowie MD [address] [address] PCP - General Internal Medicine 05/06/21 documented as of this encounter
--- OUTSIDE RECORDS SUMMARY | 2024-10-17 18:12 | XMS_ITS | Encounter Summary ---
Author Organization [facility] and [facility] Address [address] [place] [address] Care Team Providers Care Network Contract Manager Name Role Phone Cailtyn Bowie MD Primary Care Provider +1- [phone] Encounter Details Date Type Department Care Team (Late st Contact Info) Description 01/28/2018 Scanned Document [facility] Health Information Management [address] [place] [address] External, Provider Social History Tobacco Use Types [...] 10/18/2024 10:30 AM EDT Office Visit [facility] [address] [place] [address] Alfredo Michaud Jr., EMELIA [address] [place] [address] [place] [address] 10/31/2024 1:00 PM EDT Office Visit Hematology Program at [address] - NP[address] [place] [address] Ronald Mills MD [address] [place] [address] documented as of this encounter Visit Diagnoses Not on filedocumented in this encounter Additional Health Concerns Infection Onset Date Last Indicated Resolved Time COVID-19 03/05/2022 03/05/2022 03/15/2022 7:18 PM EDT documented as of this encounter Care Teams Network Contract Manager Relationship Specialty Start Date End Date Caitlyn Bowie MD 3400 [facility] 1 [place] [address] PCP - General Internal Medicine 05/06/21 Henry Kelly MD Pulmonary Department [address] [place] [address], [address] [place] [address] Physician Pulmonary Disease 09/06/17 06/22/20 documented as of this encounter
--- OUTSIDE RECORDS SUMMARY | 2024-10-17 18:12 | XMS_ITS | Encounter Summary ---
Author Organization [facility] Address [address] [place] [address] Care Team Providers Care Chicken Tender Name Role Phone Caitlyn Bowie MD Primary Care Provider +1- [phone] Encounter Details Date Type Department Care Team (Late st Contact Info) Description 04/24/2021 Scanned Document INTERFACE DEFAULT [address] [place] [address] System, Provider Not In Social History Tobacco [...] Description 10/18/2024 10:30 AM EDT Office Visit [facility] [address] [place] [address] Alfredo Michaud Jr., PA [address] [place] [address] [place] [address] 10/31/2024 1:00 PM EDT Office Visit [facility] at [address] - [address] [facility] [place] [address] Ronald Mills MD [address] [place] [address] documented as of this encounter [...] documented as of this encounter Care Teams Chicken Tender Relationship Specialty Start Date End Date Caitlyn Bowie MD [address] [address] PCP - General Internal Medicine 05/06/21 documented as of this encounter
--- OUTSIDE RECORDS SUMMARY | 2024-10-17 18:12 | XMS_ITS | Encounter Summary ---
Author Organization [facility] and [facility] Address [address] [place] [address] Care Team Providers Care Staff Radiologist Name Role Phone Caitlyn Bowie MD Primary Care Provider +1- [phone] Encounter Details Date Type Department Care Team (Late st Contact Info) Description 04/03/2018 Scanned Document [facility] [address] [place] [address] Provider, historical . Social History Tobacco Use [...] Description 10/18/2024 10:30 AM EDT Office Visit [facility] [address] [place] [address] Alfredo Michaud Jr., EMELIA [address] [place] [address] [place] [address] 10/31/2024 1:00 PM EDT Office Visit Hematology Program at [address] [place] [address] Ronald Mills MD 240 [facility] Max [address] [place] [address] documented as [...] as of this encounter Care Teams Staff Radiologist Relationship Specialty Start Date End Date Caitlyn Bowie MD 3400 [facility] 1 [place] [address] PCP - General Internal Medicine 05/06/21 Henry Kelly MD Pulmonary Department 175 [facility], [address] [place] [address] Physician Pulmonary Disease 09/06/17 06/22/20 documented as of this encounter
--- OUTSIDE RECORDS SUMMARY | 2024-10-17 18:12 | XMS_ITS | Encounter Summary ---
Author Organization [facility] Address [address] [place] [address] Care Team Providers Care Ear Specialist Name Role Phone Sharon Vides Primary Care Provider Brennan Castro MD Primary Care Provider Unavailab Hayden Montes MD Unavailable [phone] Pallavi Flood NP Unavailable +1- [phone] Caitlyn Bowie MD Primary Care Provider Johnathon shaver Encounter Details Date Type Department Care Team Description 03/13/2019 Release of Information Medical Records [address] [place] [address] Abstract, Provider Social History Tobacco Use Types [...] on filedocumented in this encounter Care Teams Ear Specialist Relationship Specialty Start Date End Date Sharon Vides PCP - General Internal Medicine 08/02/18 05/26/20 Brennan Burnett MD PCP - General Internal Medicine 05/27/20 12/07/21 Caitlyn Bowie MD [address] [place] [address] PCP - General Internal Medicine 12/08/21 Hayden Shah MD [address] [place] [address] Specialist Cardiovascular Disease 09/01/20 Pallavi Flood NP [address] [place] [address] Cardiology 09/01/20 documented as of this encounter
--- OUTSIDE RECORDS SUMMARY | 2024-10-17 18:12 | XMS_ITS | Encounter Summary ---
Author Organization [facility] and [facility] Address [address] [place] [address] Care Team Providers Care Roofer Helper Vinyl Coating Name Role Phone Caitlyn Bowie MD Primary Care Provider +1- [phone] Encounter Details Date Type Department Care Team (Late Contact Info) Description 01/26/2018 Scanned Document [facility] Health Information Management [address] [place] [address] External, Provider Social History Tobacco Use Types [...] Description 10/18/2024 10:30 AM EDT Office Visit [facility] [address] [place] [address] Alfredo Michaud Jr., EMLEIA [address] [place] [address] [place] [address] 10/31/2024 1:00 PM EDT Office Visit Hematology Program at [address] - NP[address] [place] [address] Ronald Mills MD [address] [place] [address] documented as [...] as of this encounter Care Teams Roofer Helper Vinyl Coating Relationship Specialty Start Date End Date Caitlyn Bowie MD 3400 [facility] 1 [place] [address] PCP - General Internal Medicine 05/06/21 Henry Kelly MD Pulmonary Department 175 [facility], [address] [place] [address] Physician Pulmonary Disease 09/06/17 06/22/20 documented as of this encounter
--- OUTSIDE RECORDS SUMMARY | 2024-10-17 18:12 | XMS_ITS | Encounter Summary ---
Author Organization [facility] Address [address] [place] [address] Care Team Providers Care Director Of Sales Marketing Name Role Phone Caitlyn Bowie MD Primary Care Provider +1- [phone] Encounter Details Date Type Department Care Team (Late st Contact Info) Description 03/11/2015 Scanned Document [facility] Health Information Management [address] [place] [phone] External, Provider Social History Tobacco Use Types [...] Description 10/18/2024 10:30 AM EDT Office Visit [facility] [address] [place] [address] Alfredo Michaud Jr., EMELIA [address] [place] [address] [place] [address] 10/31/2024 1:00 PM EDT Office Visit Hematology Program at [address] - [address] [place] [address] Ronald Mills MD 240 [facility] [address] [place] [address] documented as of this encounter Procedures Procedure Name Priority Date/Time Associated Diagnosis Comments LAB SCAN Routine 03/11/2015 documented in this encounter Results * Lab Scan (03/11/2015) Blood specimen (specimen) us Provider External LAB BLOOD ORDERABLES Edited Re sult - Final [facility] [place], [place], [facility] documented in this encounter Visit Diagnoses Not on filedocumented in this encounter Additional Health Concerns Infection Onset Date Last Indicated Resolved Time COVID-19 03/05/2022 03/05/2022 03/15/2022 7:18 PM EDT documented as of this encounter Care Teams Director Of Sales Marketing Relationship Specialty Start Date End Date Caitlyn Bowie MD 3400 [facility] 1 [place] [address] PCP - General Internal Medicine 05/06/21 Henry Kelly MD Pulmonary Department 175 [facility], [address] [place] [address] Physician Pulmonary Disease 09/06/17 06/22/20 documented as of this encounter
--- OUTSIDE RECORDS SUMMARY | 2024-10-17 18:12 | XMS_ITS | Encounter Summary ---
Author Organization [facility] Address [address] [place] [address] Care Team Providers Care Maths Tutor Name Role Phone Caitlyn Bowie MD Primary Care Provider +1- [phone] Reason for Visit * Reason Comments FYI Encounter Details Date Type Department Care Team (Late st Contact Info) Description 05/24/2021 Telephone [facility] at [facility] at [address] [place] [address] 2nd [place], [place] [phone] Solo Henry MD [address] [place] [address] FYI Social History Tobacco Use Types [...] Description 10/18/2024 10:30 AM EDT Office Visit [facility] [address] [place] [address] Alfredo Michaud Jr., PA [address] [place] [address] [place] [address] 10/31/2024 1:00 PM EDT Office Visit Hematology Program at [address] [address] Ronald Mills MD [address] [address] documented as of this encounter Visit Diagnoses Not on filedocumented in this encounter Additional Health Concerns Infection Onset Date Last Indicated Resolved Time COVID-19 03/05/2022 03/05/2022 03/15/2022 7:18 PM EDT Assessment Noted Time PHQ-9 Depression Total Score: 2 11/07/19 19 2:06 PM EDT documented as of this encounter Care Teams Maths Tutor Relationship Specialty Start Date End Date Caitlyn Bowie MD [address] [address] PCP - General Internal Medicine 05/06/21 documented as of this encounter
--- OUTSIDE RECORDS SUMMARY | 2024-10-17 18:12 | XMS_ITS | Encounter Summary ---
Author Organization [facility] and [facility] Address [address] [place] [phone] Care Team Providers Care Prepress Specialist Name Role Phone Caitlyn Bowie MD Primary Care Provider +1- [phone] Encounter Details Date Type Department Care Team (Late Contact Info) Description 04/16/2018 Scanned Document [facility] Health Information Management [address] [place] [address] External, Provider Social History Tobacco Use Types [...] Description 10/18/2024 10:30 AM EDT Office Visit [facility] [address] [place] [address] Alfredo Michaud Jr., EMELIA [address] [place] [address] [place] [address] 10/31/2024 1:00 PM EDT Office Visit Hematology Program at [address] - [address] [place] [address] Ronald Mills MD [address] [place] [address] documented as of this encounter Visit Diagnoses Not on filedocumented in this encounter Additional Health Concerns Infection Onset Date Last Indicated Resolved Time COVID-19 03/05/2022 03/05/2022 03/15/2022 7:18 PM EDT documented as of this encounter Care Teams Prepress Specialist Relationship Specialty Start Date End Date Caitlyn Bowie MD 3400 [facility] 1 [place] [address] PCP - General Internal Medicine 05/06/21 Henry Kelly MD Pulmonary Department [address] [place] [address], [address] [place] [address] Physician Pulmonary Disease 09/06/17 06/22/20 documented as of this encounter
--- OUTSIDE RECORDS SUMMARY | 2024-10-17 18:12 | XMS_ITS | Encounter Summary ---
Author Organization [facility] and [facility] Address [address] [place] [address] Care Team Providers Care Felt Finishing Supervisor Name Role Phone Caitlyn Bowie MD Primary Care Provider +1- [phone] Encounter Details Date Type Department Care Team (Late st Contact Info) Description 12/04/2014 Scanned Document [facility] Health Information Management [address] [place] [address] External, Provider Social History Tobacco Use Types [...] Description 10/18/2024 10:30 AM EDT Office Visit [facility] [address] [place] [address] Alfredo Michaud Jr., EMELIA [address] [place] [address] [place] [address] 10/31/2024 1:00 PM EDT Office Visit Hematology Program at [address] - [address] [place] [address] Ronald Mills MD [address] [place] [address] documented as of this encounter Procedures Procedure Name Priority Date/Time Associated Diagnosis Comments LAB SCAN Routine 12/04/2014 documented in this encounter Results * Lab Scan (12/04/2014) Blood specimen (specimen) us Provider External LAB BLOOD ORDERABLES Final Res ult [facility] documented in this encounter Visit Diagnoses Not on filedocumented in this encounter Additional Health Concerns Infection Onset Date Last Indicated Resolved Time COVID-19 03/05/2022 03/05/2022 03/15/2022 7:18 PM EDT documented as of this encounter Care Teams Felt Finishing Supervisor Relationship Specialty Start Date End Date Caitlyn Bowie MD 3400 [facility] 1 [place] [address] PCP - General Internal Medicine 05/06/21 Henry Kelly MD Pulmonary Department 175 [facility], [address] [place] [address] Physician Pulmonary Disease 09/06/17 06/22/20 documented as of this encounter
--- OUTSIDE RECORDS SUMMARY | 2024-10-17 18:12 | XMS_ITS | Encounter Summary ---
Author Organization [facility] and [facility] Address [address] [place] [address] Care Team Providers Care Farm Service Adviser Name Role Phone Caitlyn Bowie MD Primary Care Provider +1- [phone] Encounter Details Date Type Department Care Team (Late st Contact Info) Description 06/07/2021 Scanned Document [facility] at [address] [place] [address] Norma Renee MD [address] [place] [address] 2 [place] [address] Social History Tobacco Use Types [...] Description 10/18/2024 10:30 AM EDT Office Visit [facility] [address] [place] [address] Alfredo Michaud Jr., EMELIA [address] [place] [address] [place] [address] 10/31/2024 1:00 PM EDT Office Visit [facility] at [address] - [address] [facility] [place] [address] Ronald Mills MD [address] [address] documented as of this encounter Visit Diagnoses Not on filedocumented in this encounter Additional Health Concerns Infection Onset Date Last Indicated Resolved Time COVID-19 03/05/2022 03/05/2022 03/15/2022 7:18 PM EDT Assessment Noted Time PHQ-9 Depression Total Score: 2 11/07/19 19 2:06 PM EDT documented as of this encounter Care Teams Farm Service Adviser Relationship Specialty Start Date End Date Caitlyn Bowie MD [address] [address] PCP - General Internal Medicine 05/06/21 documented as of this encounter
--- OUTSIDE RECORDS SUMMARY | 2024-10-17 18:12 | XMS_ITS | Encounter Summary ---
Author Organization [facility] Address [address] [place] [address] Care Team Providers Care Solutions Executive Cloud Sales Name Role Phone Caitlyn Bowie MD Primary Care Provider +1- [phone] Encounter Details Date Type Department Care Team (Late Contact Info) Description 04/18/2018 Scanned Document [facility] Health Information Management [address] [place] [address] External, Provider Social History Tobacco Use Types [...] Description 10/18/2024 10:30 AM EDT Office Visit [facility] [address] [place] [address] Alfredo Michaud Jr., EMELIA [address] [place] [address] [place] [address] 10/31/2024 1:00 PM EDT Office Visit Hematology Program at [address] - [address] [place] [address] Ronald Mills MD [address] [place] [address] documented as of this encounter [...] as of this encounter Care Teams Solutions Executive Cloud Sales Relationship Specialty Start Date End Date Caitlyn Bowie MD 3400 [facility] 1 [place] [address] PCP - General Internal Medicine 05/06/21 Henry Kelly MD Pulmonary Department 175 [facility], [address] [place] [address] Physician Pulmonary Disease 09/06/17 06/22/20 documented as of this encounter
--- OUTSIDE RECORDS SUMMARY | 2024-10-17 18:12 | XMS_ITS | Encounter Summary ---
Author Organization [facility] and [facility] Address [address] [place] [address] Care Team Providers Care Lugger Name Role Phone Caitlyn Bowie MD Primary Care Provider +1- [phone] Encounter Details Date Type Department Care Team (Late st Contact Info) Description 04/27/2021 Scanned Document INTERFACE DEFAULT [address] [place] [address] System, Provider Not In Social History Tobacco [...] 10/18/2024 10:30 AM EDT Office Visit [facility] [address] [place] [address] Alfredo Michaud Jr., PA [address] [place] [address] [place] [address] 10/31/2024 1:00 PM EDT Office Visit [facility] at [address] - [address] [facility] [place] [address] Ronald Mills MD [address] [place] [address] documented as of this encounter [...] documented as of this encounter Care Teams Lugger Relationship Specialty Start Date End Date Caitlyn Bowie MD 3400 [facility] 1 [place] [address] PCP - General Internal Medicine 05/06/21 documented as of this encounter
--- OUTSIDE RECORDS SUMMARY | 2024-10-17 18:12 | XMS_ITS | Encounter Summary ---
Author Organization [facility] Address [address] [place] [address] Care Team Providers Care Inside Horticultural Specialty Grower Name Role Phone Caitlyn Bowie MD Primary Care Provider +1- [phone] Reason for Visit * Reason Comments Triage Encounter Details Date Type Department Care Team (Late st Contact Info) Description 10/18/2021 Telephone [facility] at [address] - [address] [phone] Ronald Mills MD [address] [place] [address] Triage Social History Tobacco Use Types [...] Description 10/18/2024 10:30 AM EDT Office Visit [facility] [address] [place] [phone] Alfredo Michaud Jr., PA [address] [place] [address] 10/31/2024 1:00 PM EDT Office Visit Hematology Program at [address] - [address] [address] Ronald Mills MD 240 [facility] A1 [place] [address] documented as of this encounter Visit Diagnoses Not on filedocumented in this encounter Additional Health Concerns Infection Onset Date Last Indicated Resolved Time COVID-19 03/05/2022 03/05/2022 03/15/2022 7:18 PM EDT Assessment Noted Time PHQ-9 Depression Total Score: 2 11/07/19 19 2:06 PM EDT documented as of this encounter Care Teams Inside Horticultural Specialty Grower Relationship Specialty Start Date End Date Caitlyn Bowie MD [address] [address] PCP - General Internal Medicine 05/06/21 documented as of this encounter
--- OUTSIDE RECORDS SUMMARY | 2024-10-17 18:12 | XMS_ITS | Encounter Summary ---
Author Organization [facility] and [facility] Address [address] [place] [address] Care Team Providers Care Injection Molding Machine Tender Name Role Phone Caitlyn Bowie MD Primary Care Provider +1- [phone] Encounter Details Date Type Department Care Team (Late st Contact Info) Description 05/05/2021 Scanned Document INTERFACE DEFAULT [address] [place] [address] System, Provider Not In Social History Tobacco [...] Description 10/18/2024 10:30 AM EDT Office Visit [facility] [address] [place] [address] Alfredo Michaud Jr., PA [address] [place] [address] [place] [address] 10/31/2024 1:00 PM EDT [facility] [address] - NP7-301 [facility] [place] [address] Roanld Mills MD 240 [facility] [address]1 [place] [address] documented as of this encounter Visit Diagnoses Not on filedocumented in this encounter Additional Health Concerns Infection Onset Date Last Indicated Resolved Time COVID-19 03/05/2022 03/05/2022 03/15/2022 7:18 PM EDT Assessment Noted Time PHQ-9 Depression Total Score: 2 11/07/19 19 2:06 PM EDT documented as of this encounter Care Teams Injection Molding Machine Tender Relationship Specialty Start Date End Date Caitlyn Bowie MD [address] [address] PCP - General Internal Medicine 05/06/21 documented as of this encounter
--- OUTSIDE RECORDS SUMMARY | 2024-10-17 18:12 | XMS_ITS | Encounter Summary ---
Author Organization [facility] and [facility] Address [address] [place] [address] Care Team Providers Care Tin Recovery Worker Name Role Phone Caitlyn Bowie MD Primary Care Provider +1- [phone] Encounter Details Date Type Department Care Team (Late st Contact Info) Description 08/07/2018 Scanned Document [facility] Health Information Management [address] [place] [address] External, Provider Social History Tobacco Use Types [...] Description 10/18/2024 10:30 AM EDT Office Visit [facility] [address] [place] [address] Alfredo Michaud Jr., EMELIA [address] [place] [address] [place] [address] 10/31/2024 1:00 PM EDT Office Visit Hematology Program at [address] - NP7-[address] [place] [address] Ronald Mills MD [address] [place] [address] documented as of this encounter Visit Diagnoses Not on filedocumented in this encounter Additional Health Concerns Infection Onset Date Last Indicated Resolved Time COVID-19 03/05/2022 03/05/2022 03/15/2022 7:18 PM EDT documented as of this encounter Care Teams Tin Recovery Worker Relationship Specialty Start Date End Date Caitlyn Bowie MD 3400 [facility] 1 [place] [address] PCP - General Internal Medicine 05/06/21 Henry Kelly MD Pulmonary Department [address] [place] [address], [address] [place] [address] Physician Pulmonary Disease 09/06/17 06/22/20 documented as of this encounter
--- OUTSIDE RECORDS SUMMARY | 2024-10-17 18:12 | XMS_ITS | Encounter Summary ---
Author Organization [facility] and [facility] Address [address] [place] [address] Care Team Providers Care Director Of Employer Services Name Role Phone Caitlyn Bowie MD Primary Care Provider +1- [phone] Encounter Details Date Type Department Care Team (Late st Contact Info) Description 04/25/2021 Scanned Document INTERFACE DEFAULT [address] [place] [address] System, Provider Not In Social History Tobacco [...] Description 10/18/2024 10:30 AM EDT Office Visit [facility] [address] [place] [address] Alfredo Michaud Jr., PA [address] [place] [address] [place] [address] 10/31/2024 1:00 PM EDT [facility] Visit [facility] at [address] - NP7-301 [facility] [place] [address] Ronald Mills MD [address] [employer] [address]1 [place] [address] documented as of this encounter [...] Date End Date Caitlyn Bowie MD 3400 [facility] 1 [place] [address] PCP - General Internal Medicine 05/06/21 documented as of this encounter
--- OUTSIDE RECORDS SUMMARY | 2024-10-17 18:12 | XMS_ITS | Encounter Summary ---
Author Organization [facility] and [facility] Address [address] [place] [address] Care Team Providers Care Residential Sales Associate Name Role Phone Caitlyn Bowie MD Primary Care Provider +1- [phone] Encounter Details Date Type Department Care Team (Late st Contact Info) Description 02/19/2015 Scanned Document [facility] Health Information Management [address] [place] [address] External, Provider Social History Tobacco Use Types [...] EDT Office Visit [facility] [address] [place] [address] Alfredo Michaud Jr., EMELIA [address] [place] [address] [place] [address] 10/31/2024 1:00 PM EDT Office Visit Hematology Program at [address] - NP7-301 [place] [address] Ronald Mills MD [address] [place] [address] documented as of this encounter Procedures Procedure Name Priority Date/Time Associated Diagnosis Comments LAB SCAN Routine 02/19/2015 documented in this encounter Results * Lab Scan (02/19/2015) Blood specimen (specimen) us Provider External LAB BLOOD ORDERABLES Final Res ult [facility] documented in this encounter Visit Diagnoses Not on filedocumented in this encounter Additional Health Concerns Infection Onset Date Last Indicated Resolved Time COVID-19 03/05/2022 03/05/2022 03/15/2022 7:18 PM EDT documented as of this encounter Care Teams Residential Sales Associate Relationship Specialty Start Date End Date Caitlyn Bowie MD 3400 [facility] 1 [place] [address] PCP - General Internal Medicine 05/06/21 Henry Kelly MD Pulmonary Department [address] [facility], [address] [place] [address] Physician Pulmonary Disease 09/06/17 06/22/20 documented as of this encounter
--- OUTSIDE RECORDS SUMMARY | 2024-10-17 18:12 | XMS_ITS | Encounter Summary ---
Author Organization [facility] and [facility] Address [address] [place] [address] Care Team Providers Care Director Of Photography Name Role Phone Caitlyn Bowie MD Primary Care Provider +1- [phone] Encounter Details Date Type Department Care Team (Late st Contact Info) Description 04/29/2021 Scanned Document INTERFACE DEFAULT [address] [place] [address] System, Provider Not In Social History Tobacco [...] Description 10/18/2024 10:30 AM EDT Office Visit [facility] [address] [place] [address] Alfredo Michaud Jr., PA [address] [place] [address] [place] [address] 10/31/2024 1:00 PM EDT Office Visit [facility] at [address] - 7[address]301 [facility] [place] [address] Ronald Mills MD [address] [place] [address] documented as of this encounter [...] of this encounter Care Teams Director Of Photography Relationship Specialty Start Date End Date Caitlyn Bowie MD [address] [address] PCP - General Internal Medicine 05/06/21 documented as of this encounter
--- OUTSIDE RECORDS SUMMARY | 2024-10-17 18:12 | XMS_ITS | Encounter Summary ---
Author Organization [facility] and [facility] Address [address] [place] [address] Care Team Providers Care Wardrobe Stylist Name Role Phone Caitlyn Bowie MD Primary Care Provider +1- [phone] Encounter Details Date Type Department Care Team (Late st Contact Info) Description 07/26/2018 Scanned Document [facility] Health Information Management [address] [place] [address] External, Provider Social History Tobacco Use Types [...] Description 10/18/2024 10:30 AM EDT Office Visit [facility] [address] [place] [address] Alfredo Michaud Jr., EMELIA [address] [place] [address] [place] [address] 10/31/2024 1:00 PM EDT Office Visit Hematology Program at [address] - NP7-[address] [place] [address] Ronald Mills MD [address] [place] [address] documented as [...] as of this encounter Care Teams Wardrobe Stylist Relationship Specialty Start Date End Date Caitlyn Bowie MD 3400 [facility] 1 [place] [address] PCP - General Internal Medicine 05/06/21 Henry Kelly MD Pulmonary Department [address] [place] [address], [address] [place] [address] Physician Pulmonary Disease 09/06/17 06/22/20 documented as of this encounter
--- OUTSIDE RECORDS SUMMARY | 2024-10-17 18:12 | XMS_ITS | Encounter Summary ---
Author Organization [facility] and [facility] Address [address] [place] [address] Care Team Providers Care Canal Equipment Mechanic Name Role Phone Caitlyn Bowie MD Primary Care Provider +1- [phone] Encounter Details Date Type Department Care Team (Late st Contact Info) Description 11/19/2021 Scanned Document [facility] at [address] [place] [address] Norma Renee MD [address] [place] [address] Social History Tobacco Use Types Packs/Day [...] Description 10/18/2024 10:30 AM EDT Office Visit [facility] [address] [place] [address] Alfredo Michaud Jr., PA [address] [place] [address] [place] [address] 10/31/2024 1:00 PM EDT [facility] Visit [facility] at [address] - [address] [place] [address] Ronald Mills MD 240 [facility] A1 [place] [address] documented as of this encounter Visit Diagnoses Not on filedocumented in this encounter Additional Health Concerns Infection Onset Date Last Indicated Resolved Time COVID-19 03/05/2022 03/05/2022 03/15/2022 7:18 PM EDT Assessment Noted Time PHQ-9 Depression Total Score: 2 11/07/19 19 2:06 PM EDT documented as of this encounter Care Teams Canal Equipment Mechanic Relationship Specialty Start Date End Date Caitlyn Bowie MD [address] [address] PCP - General Internal Medicine 05/06/21 documented as of this encounter
--- OUTSIDE RECORDS SUMMARY | 2024-10-17 18:12 | XMS_ITS | Encounter Summary ---
Author Organization [facility] and [facility] Address [address] [place] [address] Care Team Providers Care City Collector Name Role Phone Caitlyn Bowie MD Primary Care Provider +1- [phone] Encounter Details Date Type Department Care Team (Late st Contact Info) Description 11/18/2021 Scanned Document INTERFACE DEFAULT [address] [place] [address] System, Provider Not In Social History Tobacco [...] Description 10/18/2024 10:30 AM EDT Office Visit [facility] [address] [place] [address] Alfredo Michaud Jr., PA [address] [place] [address] [place] [address] 10/31/2024 1:00 PM EDT Office Visit [facility] at [address] - NP7-301 [facility] [place] [address] Ronald Mills MD 240 [facility] Max A1 [place] [address] documented as of this encounter Visit Diagnoses Not on filedocumented in this encounter Additional Health Concerns Infection Onset Date Last Indicated Resolved Time COVID-19 03/05/2022 03/05/2022 03/15/2022 7:18 PM EDT Assessment Noted Time PHQ-9 Depression Total Score: 2 11/07/19 19 2:06 PM EDT documented as of this encounter Care Teams City Collector Relationship Specialty Start Date End Date Caitlyn Bowie MD [address] [address] PCP - General Internal Medicine 05/06/21 documented as of this encounter
--- OUTSIDE RECORDS SUMMARY | 2024-10-17 18:12 | XMS_ITS | Encounter Summary ---
Author Organization [facility] Address [address] [place] [address] Care Team Providers Care Weeder Name Role Phone Sharon Vides Primary Care Provider Brennan Castro MD Primary Care Provider Unavailab Hayden Montes MD Unavailable Pallavi Flood NP Unavailable +1- [phone] Caitlyn Bowie MD Primary Care Provider Johnathon shaver Encounter Details Date Type Department Care Team Description 12/16/2018 [facility] Medical Records [address] [place] [address] Abstract, Provider Social History Tobacco Use Types [...] on filedocumented in this encounter Care Teams Weeder Relationship Specialty Start Date End Date Sharon Vides PCP - General Internal Medicine 08/02/18 05/26/20 Brennan Burnett MD PCP - General Internal Medicine 05/27/20 12/07/21 Caitlyn Bowie MD [address] [place] [address] PCP - General Internal Medicine 12/08/21 Hayden Shah MD [address] [place] [address] Specialist Cardiovascular Disease 09/01/20 Pallavi Flood NP [address] [place] [address] Cardiology 09/01/20 documented as of this encounter
--- OUTSIDE RECORDS SUMMARY | 2024-10-17 18:12 | XMS_ITS | Encounter Summary ---
Author Organization [facility] and [facility] Address [address] [place] [address] Care Team Providers Care Snout Puller Name Role Phone Caitlyn Bowie MD Primary Care Provider +1- [phone] Encounter Details Date Type Department Care Team (Late st Contact Info) Description 09/23/2021 Scanned Document INTERFACE DEFAULT [address] [place] [address] System, Provider Not In Social History Tobacco [...] Description 10/18/2024 10:30 AM EDT Office Visit [facility] [address] [place] [address] Alfredo Michaud Jr., PA [address] [place] [address] [place] [address] 10/31/2024 1:00 PM EDT Office Visit [facility] at [address] - NP7-301 [facility] [place] [address] Ronald Mills MD 240 [facility] Max A1 [place] [address] documented as of this encounter [...] documented as of this encounter Care Teams Snout Puller Relationship Specialty Start Date End Date Caitlyn Bowie MD [address] [address] PCP - General Internal Medicine 05/06/21 documented as of this encounter
--- OUTSIDE RECORDS SUMMARY | 2024-10-17 18:12 | XMS_ITS | Encounter Summary ---
Author Organization [facility] Address [address] [place] [address] Care Team Providers Care Type Casting Machine Operator Name Role Phone Caitlyn Bowie MD Primary Care Provider +1- [phone] Encounter Details Date Type Department Care Team (Late st Contact Info) Description 09/24/2021 Scanned Document INTERFACE DEFAULT [address] [place] [address] System, Provider Not In Social History Tobacco [...] Description 10/18/2024 10:30 AM EDT Office Visit [facility] [address] [place] [address] Alfredo Michaud Jr., PA [address] [place] [address] [place] [address] 10/31/2024 1:00 PM EDT Office Visit [facility] at [address] - NP7-301 [facility] [place] [address] Ronald Mills MD [address] [place] [address] documented as of this [...] documented as of this encounter Care Teams Type Casting Machine Operator Relationship Specialty Start Date End Date Caitlyn Bowie MD [address] [address] PCP - General Internal Medicine 05/06/21 documented as of this encounter
--- OUTSIDE RECORDS SUMMARY | 2024-10-17 18:12 | XMS_ITS | Encounter Summary ---
Author Organization [facility] and [facility] Address [address] [place] [phone] Care Team Providers Care Actuary Name Role Phone Caitlyn Bowie MD Primary Care Provider +1- [phone] Encounter Details Date Type Department Care Team (Late Contact Info) Description 01/26/2018 Scanned Document [facility] Health Information Management [address] [place] [address] External, Provider Social History Tobacco Use Types [...] Description 10/18/2024 10:30 AM EDT Office Visit [facility] [address] [place] [address] Alfredo Michaud Jr., EMELIA [address] [place] [address] [place] [address] 10/31/2024 1:00 PM EDT Office Visit Hematology Program at [address] - NP7-[address] [place] [address] Ronald Mills MD [address] [place] [address] documented as of this encounter [...] [facility] 1 [place] [address] PCP - General Internal Medicine 05/06/21 Henry Kelly MD Pulmonary Department [address] [place] [address], [address] [place] [address] Physician Pulmonary Disease 09/06/17 06/22/20 documented as of this encounter
--- OUTSIDE RECORDS SUMMARY | 2024-10-17 18:12 | XMS_ITS | Encounter Summary ---
Author Organization [facility] and [facility] Address [address] [place] [address] Care Team Providers Care Duty Engineer Name Role Phone Caitlyn Bowie MD Primary Care Provider +1- [phone] Encounter Details Date Type Department Care Team (Late st Contact Info) Description 10/15/2018 Scanned Document [facility] Health Information Management [address] [place] [address] External, Provider Social History Tobacco Use Types [...] Description 10/18/2024 10:30 AM EDT Office Visit [facility] [address] [place] [address] Alfredo Michaud Jr., EMELIA [address] [place] [address] [place] [address] 10/31/2024 1:00 PM EDT Office Visit Hematology Program at [address] - NP7-[address] [place] [address] Ronald Mills MD [address] [place] [address] documented as of this encounter Visit Diagnoses Not on filedocumented in this encounter Additional Health Concerns Infection Onset Date Last Indicated Resolved Time COVID-19 03/05/2022 03/05/2022 03/15/2022 7:18 PM EDT documented as of this encounter Care Teams Duty Engineer Relationship Specialty Start Date End Date Caitlyn Bowie MD 3400 [facility] 1 [place] [address] PCP - General Internal Medicine 05/06/21 Henry Kelly MD Pulmonary Department [address] [place] [address], [address] [place] [address] Physician Pulmonary Disease 09/06/17 06/22/20 documented as of this encounter
--- OUTSIDE RECORDS SUMMARY | 2024-10-17 18:12 | XMS_ITS | Encounter Summary ---
Author Organization [facility] and [facility] Address [address] [place] [address] Care Team Providers Care Collar Stay Fuser Tender Name Role Phone Caitlyn Bowie MD Primary Care Provider +1- [phone] Encounter Details Date Type Department Care Team (Late st Contact Info) Description 06/08/2021 Scanned Document INTERFACE DEFAULT [address] [place] [address] System, Provider Not In Social History Tobacco [...] EDT Office Visit [facility] [address] [place] [address] Alfredo Michaud Jr., PA [address] [place] [address] [place] [address] 10/31/2024 1:00 PM EDT Office Visit [facility] at [address] - NP7-301 [facility] [place] [address] Ronald Mills MD [address] [place] [address] documented as of this encounter [...] as of this encounter Care Teams Collar Stay Fuser Tender Relationship Specialty Start Date End Date Caitlyn Bowie MD [address] [address] PCP - General Internal Medicine 05/06/21 documented as of this encounter
--- OUTSIDE RECORDS SUMMARY | 2024-10-17 18:12 | XMS_ITS | Encounter Summary ---
Author Organization [facility] and [facility] Address [address] [place] [address] Care Team Providers Care Edging Machine Setter Name Role Phone Caitlyn Bowie MD Primary Care Provider +1- [phone] Encounter Details Date Type Department Care Team (Late Contact Info) Description 10/29/2021 Scanned Document [facility] Health Information Management [address] [place] [address] External, Provider Social History Tobacco Use Types [...] Description 10/18/2024 10:30 AM EDT Office Visit [facility] [address] [place] [address] Alfredo Michaud Jr., PA [address] [place] [address] [place] [address] 10/31/2024 1:00 PM EDT Office Visit [facility] at [address] - NP7[address]301 [facility] [place] [address] Ronald Mills MD 240 [facility] Max [address]1 [place] [address] documented as of this encounter Procedures [...] documented as of this encounter Care Teams Edging Machine Setter Relationship Specialty Start Date End Date Caitlyn Bowie MD [facility] [address] [address] PCP - General Internal Medicine 05/06/21 documented as of this encounter
--- OUTSIDE RECORDS SUMMARY | 2024-10-17 18:12 | XMS_ITS | Encounter Summary ---
Author Organization [facility] and [facility] Address [address] [place] [address] Care Team Providers Care Combination Worker Name Role Phone Caitlyn Bowie MD Primary Care Provider +1- [phone] Encounter Details Date Type Department Care Team (Late st Contact Info) Description 07/30/2018 Scanned Document [facility] Health Information Management [address] [place] [address] External, Provider Social History Tobacco Use Types [...] Description 10/18/2024 10:30 AM EDT Office Visit [facility] [address] [place] [address] Alfredo Michaud Jr., EMELIA [address] [place] [address] [place] [address] 10/31/2024 1:00 PM EDT Office Visit Hematology Program at [address] - NP7-[address] [place] [address] Ronald Mills MD [address] [place] [address] documented as of this encounter [...] documented as of this encounter Care Teams Combination Worker Relationship Specialty Start Date End Date Caitlyn Bowie MD 3400 [facility] 1 [place] [address] PCP - General Internal Medicine 05/06/21 Henry Kelly MD Pulmonary Department 175 [facility], [address] [place] [address] Physician Pulmonary Disease 09/06/17 06/22/20 documented as of this encounter
--- OUTSIDE RECORDS SUMMARY | 2024-10-17 18:12 | XMS_ITS | Clinical Summary ---
Author Organization [facility] Address [address] [place] [address] Care Team Providers Care Wraparound Facilitator Name Role Phone Caitlyn Bowie MD Primary Care Provider +1- [phone] Allergies Active Allergy Reactions Criticality Noted Date [...] Breath High 05/09/2008 Bronchospasm or Wheezing Ipratropium [place] Unknown/Patient and Family Unable to Define Medium [...] 1 capsule by mouth daily. Active B Qjujhcl-G-Hchyo Acid (STRESS 500 B-COMPLEX PO) Take 1 [...] age to complete this topic Care Teams Wraparound Facilitator Relationship Specialty Start Date End Date Caitlyn Bowie MD [facility] [place] [address] PCP - General Internal Medicine 03/20/23
--- OUTSIDE RECORDS SUMMARY | 2024-10-17 18:12 | XMS_ITS | Encounter Summary ---
Author Organization [facility] and [facility] Address [address] [place] [address] Care Team Providers Care Eyeglass Assembler Name Role Phone Caitlyn Bowie MD Primary Care Provider +1- [phone] Encounter Details Date Type Department Care Team (Late st Contact Info) Description 07/28/2018 Scanned Document [facility] Health Information Management [address] [place] [address] External, Provider Social History Tobacco Use Types [...] Description 10/18/2024 10:30 AM EDT Office Visit [facility] [address] [place] [address] Alfredo Michaud Jr., EMELIA [address] [place] [address] [place] [address] 10/31/2024 1:00 PM EDT Office Visit Hematology Program at [address] - NP[address] [place] [address] Ronald Mills MD [address] [place] [address] documented as of this encounter [...] documented as of this encounter Care Teams Eyeglass Assembler Relationship Specialty Start Date End Date Caitlyn Bowie MD 3400 [facility] 1 [place] [address] PCP - General Internal Medicine 05/06/21 Henry Kelly MD Pulmonary Department 175 [facility], [address] [place] [address] Physician Pulmonary Disease 09/06/17 06/22/20 documented as of this encounter
--- OUTSIDE RECORDS SUMMARY | 2024-10-17 18:12 | XMS_ITS | Encounter Summary ---
Author Organization [facility] and [facility] Address [address] [place] [address] Care Team Providers Care Steam Fitter Supervisor Name Role Phone Caitlyn Bowie MD Primary Care Provider +1- [phone] Reason for Visit * Reason Comments Advice Only Encounter Details Date Type Department Care Team ([facility] st Contact Info) Description 06/01/2021 Telephone [facility] at [address] [phone] Ronald Mills MD [address] [place] [address] Advice Only Social History Tobacco Use [...] added that she's called before and sent [employer] messages but hasn't received a reply,[phone]. documented in this encounter Plan of Treatment Upcoming Encounters Date Type Department Care Team (Late st Contact Info) Description 10/18/2024 10:30 AM EDT Office Visit [facility] [address] [place] [address] [address] [place] [address] Alfredo Michaud Jr., PA [address] [place] [address] [place] [address] 10/31/2024 1:00 PM EDT Office Visit Hematology Program at [address] - [address] [address] Ronald Mills MD 240 [facility] A1 [place] [address] documented as of this encounter Visit Diagnoses Not on filedocumented in this encounter Additional Health Concerns Infection Onset Date Last Indicated Resolved Time COVID-19 03/05/2022 03/05/2022 03/15/2022 7:18 PM EDT Assessment Noted Time PHQ-9 Depression Total Score: 2 11/07/19 19 2:06 PM EDT documented as of this encounter Care Teams Steam Fitter Supervisor Relationship Specialty Start Date End Date Caitlyn Bowie MD [address] [address] PCP - General Internal Medicine 05/06/21 documented as of this encounter
--- OUTSIDE RECORDS SUMMARY | 2024-10-17 18:12 | XMS_ITS | Encounter Summary ---
Author Organization [facility] and [facility] Address [address] [place] [address] Care Team Providers Care Reel And Rewinder Operator Name Role Phone Caitlyn Bowie MD Primary Care Provider +1- [phone] Encounter Details Date Type Department Care Team (Late st Contact Info) Description 10/08/2021 Scanned Document INTERFACE DEFAULT [address] [place] [address] System, Provider Not In Social History Tobacco [...] Description 10/18/2024 10:30 AM EDT Office Visit [facility] [address] [place] [address] Alfredo Michaud Jr., PA [address] [place] [address] [place] [address] 10/31/2024 1:00 PM EDT Office Visit [facility] at [address] - NP7[address]301 [facility] [place] [address] Ronald Mills MD [address] [place] [address] documented as of this encounter [...] documented as of this encounter Care Teams Reel And Rewinder Operator Relationship Specialty Start Date End Date Caitlyn Bowie MD [address] [address] PCP - General Internal Medicine 05/06/21 documented as of this encounter
--- OUTSIDE RECORDS SUMMARY | 2024-10-17 18:12 | XMS_ITS | Encounter Summary ---
Author Organization [facility] and [facility] Address [address] [place] [address] Care Team Providers Care Collar Tacker Name Role Phone Caitlyn Bowie MD Primary Care Provider +1- [phone] Encounter Details Date Type Department Care Team (Late Contact Info) Description 06/26/2018 Scanned Document [facility] Health Information Management [address] [place] [address] External, Provider Social History Tobacco Use Types [...] Description 10/18/2024 10:30 AM EDT Office Visit [facility] [address] [place] [address] Alfredo Michaud Jr., EMELIA [address] [place] [address] [place] [address] 10/31/2024 1:00 PM EDT Office Visit Hematology Program at [address] - NP[address] [place] [address] Ronald Mills MD [address] [place] [address] documented as of this encounter Visit Diagnoses Not on filedocumented in this encounter Additional Health Concerns Infection Onset Date Last Indicated Resolved Time COVID-19 03/05/2022 03/05/2022 03/15/2022 7:18 PM EDT documented as of this encounter Care Teams Collar Tacker Relationship Specialty Start Date End Date Caitlyn Bowie MD 3400 [facility] 1 [place] [address] PCP - General Internal Medicine 05/06/21 Henry Kelly MD Pulmonary Department [address] [place] [address], [address] [place] [address] Physician Pulmonary Disease 09/06/17 06/22/20 documented as of this encounter
--- OUTSIDE RECORDS SUMMARY | 2024-10-17 18:12 | XMS_ITS | Encounter Summary ---
Author Organization [facility] and [facility] Address [address] [place] [address] Care Team Providers Care Economics Analyst Name Role Phone Caitlyn Bowie MD Primary Care Provider +1- [phone] Encounter Details Date Type Department Care Team (Late st Contact Info) Description 03/13/2015 Scanned Document [facility] Health Information Management [address] [place] [address] External, Provider Social History Tobacco Use Types [...] Description 10/18/2024 10:30 AM EDT Office Visit [facility] [address] [place] [address] Alfredo Michaud Jr., EMELIA [address] [place] [address] [place] [address] 10/31/2024 1:00 PM EDT Office Visit Hematology Program at [address] - [address] [place] [address] Ronald Mills MD [address] [place] [address] documented as of this encounter Procedures Procedure Name Priority Date/Time Associated Diagnosis Comments LAB SCAN Routine 02/16/2015 LAB SCAN Routine 02/16/2015 documented in this encounter Results * Lab Scan (02/16/2015) Blood specimen (specimen) Provider External LAB BLOOD ORDERABLES Final Res ult Performing Organization Address [facility]/ZIP Co de Phone Number [facility] * Lab Scan (02/16/2015) Blood specimen (specimen) Provider External LAB BLOOD ORDERABLES Final Res ult Performing Organization Address [facility] Co de Phone Number [facility] documented in this encounter Visit Diagnoses Not on filedocumented in this encounter Additional Health Concerns Infection Onset Date Last Indicated Resolved Time COVID-19 03/05/2022 03/05/2022 03/15/2022 7:18 PM EDT documented as of this encounter Care Teams Economics Analyst Relationship Specialty Start Date End Date Caitlyn Bowie MD 3400 [facility] 1 [place] [address] PCP - General Internal Medicine 05/06/21 Henry Kelly MD Pulmonary Department 175 [facility], [address] [place] [address] Physician Pulmonary Disease 09/06/17 06/22/20 documented as of this encounter
--- OUTSIDE RECORDS SUMMARY | 2024-10-17 18:12 | XMS_ITS | Encounter Summary ---
Author Organization [facility] and [facility] Address [address] [place] [address] Care Team Providers Care Model Maker Apprentice Name Role Phone Caitlyn Bowie MD Primary Care Provider +1- [phone] Encounter Details Date Type Department Care Team (Late st Contact Info) Description 05/27/2021 Telephone [facility] at [address] [address] Ronald Mills MD [address] [place] [address] Social History Tobacco Use Types Packs/Day [...] Description 10/18/2024 10:30 AM EDT Office Visit [facility] [address] [place] [address] 202 [place] [phone] Alfredo Michaud Jr., PA [address] [place] [address] [place] [address] 10/31/2024 1:00 PM EDT Office Visit Hematology Program at [address] [address] Ronald Mills MD 240 [facility] A1 [place] [address] documented as of this encounter Visit Diagnoses Not on filedocumented in this encounter Additional Health Concerns Infection Onset Date Last Indicated Resolved Time COVID-19 03/05/2022 03/05/2022 03/15/2022 7:18 PM EDT Assessment Noted Time PHQ-9 Depression Total Score: 2 11/07/19 19 2:06 PM EDT documented as of this encounter Care Teams Model Maker Apprentice Relationship Specialty Start Date End Date Caitlyn Bowie MD [address] [address] PCP - General Internal Medicine 05/06/21 documented as of this encounter
--- OUTSIDE RECORDS SUMMARY | 2024-10-17 18:12 | XMS_ITS | Encounter Summary ---
Author Organization [facility] Address [address] [place] [address] Care Team Providers Care Calender Machine Operator Helper Name Role Phone Sharon Vides Primary Care Provider Brennan Castro MD Primary Care Provider Unavailab Hayden Montes MD Unavailable [phone] Pallavi Flood NP Unavailable +1- [phone] Caitlyn Bowie MD Primary Care Provider Johnathon shaver Encounter Details Date Type Department Care Team Description 02/05/2019 [facility] Medical Records [address] [place] [address] Landen Aaron DO Social History Tobacco Use [...] on filedocumented in this encounter Care Teams Calender Machine Operator Helper Relationship Specialty Start Date End Date Sharon Vides PCP - General Internal Medicine 08/02/18 05/26/20 Brennan Burnett MD PCP - General Internal Medicine 05/27/20 12/07/21 Caitlyn Bowie MD [address] [place] [address] PCP - General Internal Medicine 12/08/21 Hayden Shah MD [address] [place], [place] [address] Specialist Cardiovascular Disease 09/01/20 Pallavi Flood NP [address] [place], [place] [phone] Cardiology 09/01/20 documented as of this encounter
--- OUTSIDE RECORDS SUMMARY | 2024-10-17 18:12 | XMS_ITS | Encounter Summary ---
Author Organization [facility] and [facility] Address [address] [place] [address] Care Team Providers Care Box Truck Driver Name Role Phone Caitlyn Bowie MD Primary Care Provider +1- [phone] Encounter Details Date Type Department Care Team (Late Contact Info) Description 01/26/2018 Scanned Document [facility] Health Information Management [address] [place] [address] External, Provider Social History Tobacco Use Types [...] Description 10/18/2024 10:30 AM EDT Office Visit [facility] [address] [place] [address] Alfredo Michaud Jr., EMELIA [address] [place] [address] [place] [address] 10/31/2024 1:00 PM EDT Office Visit Hematology Program at [address] - NP[address] [place] [address] Ronald Mills MD [address] [place] [address] documented as of [...] as of this encounter Care Teams Box Truck Driver Relationship Specialty Start Date End Date Caitlyn Bowie MD 3400 [facility] 1 [place] [address] PCP - General Internal Medicine 05/06/21 Henry Kelly MD Pulmonary Department 175 [facility], [address] [place] [address] Physician Pulmonary Disease 09/06/17 06/22/20 documented as of this encounter
--- OUTSIDE RECORDS SUMMARY | 2024-10-17 18:12 | XMS_ITS | Encounter Summary ---
Author Organization [facility] and [facility] Address [address] [place] [address] Care Team Providers Care Winter Intern Name Role Phone Caitlyn Bowie MD Primary Care Provider +1- [phone] Encounter Details Date Type Department Care Team (Late st Contact Info) Description 01/27/2018 Scanned Document [facility] Health Information Management [address] [place] [address] External, Provider Social History Tobacco Use Types [...] Description 10/18/2024 10:30 AM EDT Office [facility] [address] [place] [address] Alfredo Michaud Jr., EMELIA [address] [place] [address] [place] [address] 10/31/2024 1:00 PM EDT Office Visit Hematology Program at [address] - NP[address] [place] [address] Ronald Mills MD [address] [place] [address] documented as of this encounter Visit Diagnoses Not on filedocumented in this encounter Additional Health Concerns Infection Onset Date Last Indicated Resolved Time COVID-19 03/05/2022 03/05/2022 03/15/2022 7:18 PM EDT documented as of this encounter Care Teams Winter Intern Relationship Specialty Start Date End Date Caitlyn Bowie MD 3400 [facility] 1 [place] [address] PCP - General Internal Medicine 05/06/21 Henry Kelly MD Pulmonary Department [address] [place] [address], [address] [place] [address] Physician Pulmonary Disease 09/06/17 06/22/20 documented as of this encounter
--- OUTSIDE RECORDS SUMMARY | 2024-10-17 18:12 | XMS_ITS | Encounter Summary ---
Author Organization [facility] and [facility] Address [address] [place] [address] Care Team Providers Care Clerk Manager Name Role Phone Caitlyn Bowie MD Primary Care Provider +1- [phone] Encounter Details Date Type Department Care Team (Late st Contact Info) Description 03/26/2015 Scanned Document Cardiovascular Medicine at [address] [address] Norma Renee MD [address] [place] [phone] Social History Tobacco Use Types Packs/Day Years [...] Description 10/18/2024 10:30 AM EDT Office Visit [facility] [address] [place] [address] Alfredo Michaud Jr., EMELIA [address] [place] [address] [place] [address] 10/31/2024 1:00 PM EDT Office Visit [facility] 20 [facility] - NP7[address]301 [facility] [place] [address] Ronald Mills MD 240 [facility] [address] [place] [address] documented as of this encounter Visit Diagnoses Not on filedocumented in this encounter Additional Health Concerns Infection Onset Date Last Indicated Resolved Time COVID-19 03/05/2022 03/05/2022 03/15/2022 7:18 PM EDT documented as of this encounter Care Teams Clerk Manager Relationship Specialty Start Date End Date Caitlyn Bowie MD 3400 [facility] 1 [place] [address] PCP - General Internal Medicine 05/06/21 Henry Kelly MD Pulmonary Department 175 [facility] [address] [place] [address] Physician Pulmonary Disease 09/06/17 06/22/20 documented as of this encounter
--- OUTSIDE RECORDS SUMMARY | 2024-10-17 18:12 | XMS_ITS | Encounter Summary ---
Author Organization [facility] and [facility] Address [address] [place] [address] Care Team Providers Care Home School Coordinator Name Role Phone Caitlyn Bowie MD Primary Care Provider +1- [phone] Encounter Details Date Type Department Care Team (Late st Contact Info) Description 03/14/2018 Scanned Document [facility] Health Information Management [address] [place] [address] External, Provider Social History Tobacco Use Types [...] Description 10/18/2024 10:30 AM EDT Office Visit [facility] [address] [place] [address] Alfredo Michaud Jr., EMELIA [address] [place] [address] [place] [address] 10/31/2024 1:00 PM EDT Office Visit Hematology Program at [address] - NP[address] [place] [address] Ronald Mills MD [address] [place] [address] documented as of this encounter [...] as of this encounter Care Teams Home School Coordinator Relationship Specialty Start Date End Date Caitlyn Bowie MD 3400 [facility] 1 [place] [address] PCP - General Internal Medicine 05/06/21 Henry Kelly MD Pulmonary Department 175 [facility], [address] [place] [address] Physician Pulmonary Disease 09/06/17 06/22/20 documented as of this encounter
--- OUTSIDE RECORDS SUMMARY | 2024-10-17 18:12 | XMS_ITS | Encounter Summary ---
Author Organization [facility] and [facility] Address [address] [place] [address] Care Team Providers Care Viticulture Teacher Name Role Phone Caitlyn Bowie MD Primary Care Provider +1- [phone] Encounter Details Date Type Department Care Team (Late st Contact Info) Description 04/28/2021 Scanned Document INTERFACE DEFAULT [address] [place] [address] System, Provider Not In Social History Tobacco [...] Description 10/18/2024 10:30 AM EDT Office Visit [facility] [address] [place] [address] Alfredo Michaud Jr., PA [address] [place] [address] [place] [address] 10/31/2024 1:00 PM EDT Office Visit [facility] at [address] - NP[address]301 [facility] [place] [address] Ronald Mills MD [address] [place] [address] documented as of this encounter [...] documented as of this encounter Care Teams Viticulture Teacher Relationship Specialty Start Date End Date Caitlyn Bowie MD [address] [address] PCP - General Internal Medicine 05/06/21 documented as of this encounter
--- OUTSIDE RECORDS SUMMARY | 2024-10-17 18:12 | XMS_ITS | Encounter Summary ---
Author Organization [facility] Address [address] [place] [address] Care Team Providers Care Verification Engineer Name Role Phone Sharon Vides Primary Care Provider Brennan Castro MD Primary Care Provider Unavailab Hayden Montes MD Unavailable [phone] Pallavi Flood NP Unavailable [phone]- [phone] Caitlyn Bowie MD Primary Care Provider Johnathon shaver Encounter Details Date Type Department Care Team Description 02/07/2019 [facility] Medical Records [address] [place] [address] Landen Aaron DO Social History Tobacco Use [...] on filedocumented in this encounter Care Teams Verification Engineer Relationship Specialty Start Date End Date Sharon Vides PCP - General Internal Medicine 08/02/18 05/26/20 Brennan Burnett MD PCP - General Internal Medicine 05/27/20 12/07/21 Caitlyn Bowie MD [address] [place] [address] PCP - General Internal Medicine 12/08/21 Hayden Shah MD [address] [place], [place] 2[address] Specialist Cardiovascular Disease 09/01/20 Pallavi Flood NP [address] [place], [place] [phone] Cardiology 09/01/20 documented as of this encounter
--- OUTSIDE RECORDS SUMMARY | 2024-10-17 18:13 | XMS_ITS | Encounter Summary ---
Author Organization [facility] and [facility] Address [address] [place] [address] Care Team Providers Care Operations And Intelligence Assistant Name Role Phone Caitlyn Bowie MD Primary Care Provider +1- [phone] Reason for Visit * Reason Comments Advice Only mass Encounter Details Date Type Department Care Team (Late st Contact Info) Description 09/06/2021 Telephone [facility] at [address] [phone] Ronald Mills MD [address] [place] [address] Advice Only (mass) Social History Tobacco [...] CT report requested. * Telephone Encounter - Chely Aparicio - 09/06/2021 9:05 AM EST Her pcp ordered a CT of her stomach and it found a mass in her kidney. She's very scared and would like to discuss with Dr Mills as soon as possible, . documented in this encounter Plan of Treatment Upcoming Encounters Date Type Department Care Team (Late st Contact Info) Description 10/18/2024 10:30 AM EDT Office Visit [facility] [address] [place] [address] 202 [place] [phone] Alfredo Michaud Jr., PA [address] [place] [address] [place] [address] 10/31/2024 1:00 PM EDT Office Visit Hematology Program at [address] - [address] [phone] Ronald Mills MD [address] [address] documented as of this encounter Visit Diagnoses Not on filedocumented in this encounter Additional Health Concerns Infection Onset Date Last Indicated Resolved Time COVID-19 03/05/2022 03/05/2022 03/15/2022 7:18 PM EDT Assessment Noted Time PHQ-9 Depression Total Score: 2 11/07/19 19 2:06 PM EDT documented as of this encounter Care Teams Operations And Intelligence Assistant Relationship Specialty Start Date End Date Caitlyn Bowie MD [address] [address] PCP - General Internal Medicine 05/06/21 documented as of this encounter
--- OUTSIDE RECORDS SUMMARY | 2024-10-17 18:13 | XMS_ITS | Encounter Summary ---
Author Organization [facility] and [facility] Address [address] [place] [address] Care Team Providers Care Associate Manager Name Role Phone Caitlyn Bowie MD Primary Care Provider +1- [phone] Encounter Details Date Type Department Care Team (Late st Contact Info) Description 05/04/2022 Scanned Document INTERFACE DEFAULT [address] [place] [address] System, Provider Not In Social History Tobacco [...] EDT Office Visit [facility] [address] [place] [address] Alfredo Michaud Jr., PA [address] [place] [address] [place] [address] 10/31/2024 1:00 PM EDT Office Visit [facility] at [address] - NP[address] [place] [address] [place] [address] Ronald Mills MD 240 [facility] Max [address] [place] [phone] documented as of this encounter Visit Diagnoses Not on filedocumented in this encounter Additional Health Concerns Assessment Noted Time PHQ-9 Depression Total Score: 2 11/07/19 19 2:06 PM EDT documented as of this encounter Care Teams Associate Manager Relationship Specialty Start Date End Date Caitlyn Bowie MD [address] [address] PCP - General Internal Medicine 05/06/21 documented as of this encounter
--- OUTSIDE RECORDS SUMMARY | 2024-10-17 18:13 | XMS_ITS | Encounter Summary ---
Author Organization [facility] and [facility] Address [address] [place] [address] Care Team Providers Care Extrusion Die Repairer Name Role Phone Caitlyn Bowie MD Primary Care Provider +1- [phone] Encounter Details Date Type Department Care Team (Late st Contact Info) Description 07/22/2021 Scanned Document INTERFACE DEFAULT [address] [place] [address] System, Provider Not In Social History Tobacco [...] Description 10/18/2024 10:30 AM EDT Office Visit [facility] [address] [place] [address] Alfredo Michaud Jr., PA [address] [place] [address] [place] [address] 10/31/2024 1:00 PM EDT [facility] [address] - [address]301 [facility] [place] [address] Ronald Mills MD 240 [facility] Max [address]1 [place] [address] documented as of [...] documented as of this encounter Care Teams Extrusion Die Repairer Relationship Specialty Start Date End Date Caitlyn Bowie MD [address] [address] PCP - General Internal Medicine 05/06/21 documented as of this encounter
--- OUTSIDE RECORDS SUMMARY | 2024-10-17 18:13 | XMS_ITS | Encounter Summary ---
Author Organization [facility] Address [address] [place] [address] Care Team Providers Care Costume Specialist Name Role Phone Caitlyn Bowie MD Primary Care Provider +1- [phone] Encounter Details Date Type Department Care Team (Late st Contact Info) Description 09/09/2015 Scanned Document [facility] Health Information Management [address] [place] [address] External, Provider Social History Tobacco Use Types [...] Description 10/18/2024 10:30 AM EDT Office Visit [facility] [address] [place] [address] Alfredo Michaud Jr., EMELIA [address] [place] [address] [place] [address] 10/31/2024 1:00 PM EDT Office Visit Hematology Program at [address] - NP[address] [place] [address] Ronald Mills MD [address]1 [place] [address] documented as of this encounter Procedures Procedure Name Priority Date/Time Associated Diagnosis Comments LAB SCAN Routine 09/09/2015 documented in this encounter Results * Lab Scan (09/09/2015) Blood specimen (specimen) us Provider External LAB BLOOD ORDERABLES Final Res ult [facility] documented in this encounter Visit Diagnoses Not on filedocumented in this encounter Additional Health Concerns Infection Onset Date Last Indicated Resolved Time COVID-19 03/05/2022 03/05/2022 03/15/2022 7:18 PM EDT documented as of this encounter Care Teams Costume Specialist Relationship Specialty Start Date End Date Caitlyn Bowie MD 3400 [facility] 1 [place] [address] PCP - General Internal Medicine 05/06/21 Henry Kelly MD Pulmonary Department 175 [facility], [address] [place] [address] Physician Pulmonary Disease 09/06/17 06/22/20 documented as of this encounter
--- OUTSIDE RECORDS SUMMARY | 2024-10-17 18:13 | XMS_ITS | Encounter Summary ---
Author Organization [facility] Address [address] [place] [address] Care Team Providers Care Garden Center Manager Name Role Phone Caitlyn Bowie MD Primary Care Provider +1- [phone] Encounter Details Date Type Department Care Team (Late st Contact Info) Description 09/01/2023 Scanned Document INTERFACE DEFAULT [address] [place] [address] System, Provider Not In Social History Tobacco [...] Description 10/18/2024 10:30 AM EDT Office Visit [facility] [address] [place] [address] Alfredo Michaud Jr., PA [address] [place] [address] [place] [address] 10/31/2024 1:00 PM EDT [facility] at [address] - NP[address] [place] [address] [place] [address] Ronald Mills MD 240 [facility] Max A1 [place] [address] documented as of this encounter Visit Diagnoses Not on filedocumented in this encounter Additional Health Concerns Assessment Noted Time PHQ-9 Depression Total Score: 2 11/07/19 19 2:06 PM EDT documented as of this encounter Care Teams Garden Center Manager Relationship Specialty Start Date End Date Caitlyn Bowie MD [address] [address] PCP - General Internal Medicine 05/06/21 documented as of this encounter
--- OUTSIDE RECORDS SUMMARY | 2024-10-17 18:13 | XMS_ITS | Encounter Summary ---
Author Organization [facility] Address [address] [place] [address] Care Team Providers Care Dog And Cat Food Cook Name Role Phone Caitlyn Bowie MD Primary Care Provider +1- [phone] Encounter Details Date Type Department Care Team (Late Contact Info) Description 01/31/2023 Abstract [facility] 35 [facility]8 [place] [address] Shilpi Romero, RN Social History Tobacco Use [...] Description 10/18/2024 10:30 AM EDT Office Visit [facility] [address] [place] [address] Alfredo Michaud Jr., PA [address] [place] [address] [place] [address] 10/31/2024 1:00 PM EDT Office Visit [facility] 20 [facility] - NP7-[address] [place] [address] Ronald Mills MD 240 [facility] Max A1 [place] [address] documented as of this encounter Visit Diagnoses Not on filedocumented in this encounter Additional Health Concerns Assessment Noted Time PHQ-9 Depression Total Score: 2 11/07/19 19 2:06 PM EDT documented as of this encounter Care Teams Dog And Cat Food Cook Relationship Specialty Start Date End Date Caitlyn Bowie MD [address] [address] PCP - General Internal Medicine 05/06/21 documented as of this encounter
--- OUTSIDE RECORDS SUMMARY | 2024-10-17 18:13 | XMS_ITS | Encounter Summary ---
Author Organization [facility] and [facility] Address [address] [place] [address] Care Team Providers Care Brick Mason Name Role Phone Caitlyn Bowie MD Primary Care Provider +1- [phone] Encounter Details Date Type Department Care Team (Late st Contact Info) Description 08/28/2015 Scanned Document [facility] Health Information Management [address] [place] [address] External, Provider Social History Tobacco Use Types [...] Description 10/18/2024 10:30 AM EDT Office Visit [facility] [address] [place] [address] Alfredo Michaud Jr., EMELIA [address] [place] [address] [place] [address] 10/31/2024 1:00 PM EDT Office Visit Hematology Program at [address] - [address] [place] [address] Ronald Mills MD 240 [facility] Max A1 [place] [address] documented as of this encounter Visit Diagnoses Not on filedocumented in this encounter Additional Health Concerns Infection Onset Date Last Indicated Resolved Time COVID-19 03/05/2022 03/05/2022 03/15/2022 7:18 PM EDT documented as of this encounter Care Teams Brick Mason Relationship Specialty Start Date End Date Caitlyn Bowie MD 3400 [facility] 1 [place] [address] PCP - General Internal Medicine 05/06/21 Henry Kelly MD Pulmonary Department [address] [place] [address], [address] [place] [address] Physician Pulmonary Disease 09/06/17 06/22/20 documented as of this encounter
--- OUTSIDE RECORDS SUMMARY | 2024-10-17 18:13 | XMS_ITS | Encounter Summary ---
Author Organization [facility] and [facility] Address [address] [place] [address] Care Team Providers Care Varnish Melter Helper Name Role Phone Caitlyn Bowie MD Primary Care Provider +1- [phone] Encounter Details Date Type Department Care Team (Late st Contact Info) Description 09/09/2015 Scanned Document [facility] Health Information Management [address] [place] [address] External, Provider Social History Tobacco Use Types [...] Description 10/18/2024 10:30 AM EDT Office Visit [facility] [address] [place] [address] Alfredo Michaud Jr., EMELIA [address] [place] [address] [place] [address] 10/31/2024 1:00 PM EDT Office Visit Hematology Program at [address] - [address] [place] [address] Ronald Mills MD [address] [place] [address] documented as of this encounter Procedures Procedure Name Priority Date/Time Associated Diagnosis Comments LAB SCAN Routine 09/09/2015 documented in this encounter Results * Lab Scan (09/09/2015) Blood specimen (specimen) us Provider External LAB BLOOD ORDERABLES Final Res ult [facility] documented in this encounter Visit Diagnoses Not on filedocumented in this encounter Additional Health Concerns Infection Onset Date Last Indicated Resolved Time COVID-19 03/05/2022 03/05/2022 03/15/2022 7:18 PM EDT documented as of this encounter Care Teams Varnish Melter Helper Relationship Specialty Start Date End Date Caitlyn Bowie MD 3400 [facility] 1 [place] [address] PCP - General Internal Medicine 05/06/21 Henry Kelly MD Pulmonary Department 175 [facility], [address] [place] [address] Physician Pulmonary Disease 09/06/17 06/22/20 documented as of this encounter
--- OUTSIDE RECORDS SUMMARY | 2024-10-17 18:13 | XMS_ITS | Encounter Summary ---
Author Organization [facility] and [facility] Address [address] [place] [address] Care Team Providers Care Order Administrator Name Role Phone Caitlyn Bowie MD Primary Care Provider +1- [phone] Encounter Details Date Type Department Care Team (Late st Contact Info) Description 09/09/2015 Scanned Document [facility] Health Information Management [address] [place] [address] External, Provider Social History Tobacco Use Types [...] Description 10/18/2024 10:30 AM EDT Office Visit [facility] [address] [place] [address] Alfredo Michaud Jr., EMELIA [address] [place] [address] [place] [address] 10/31/2024 1:00 PM EDT Office Visit Hematology Program at [address] - [address] [place] [address] Ronald Mills MD [address] [place] [address] [place] [address] documented as of this encounter Procedures Procedure Name Priority Date/Time Associated Diagnosis Comments LAB SCAN Routine 09/09/2015 documented in this encounter Results * Lab Scan (09/09/2015) Blood specimen (specimen) us Provider External LAB BLOOD ORDERABLES Final Res ult Performing Organization Address City/State/[facility] Co de Phone Number [facility] [place], [facility] documented in this encounter Visit Diagnoses Not on filedocumented in this encounter Additional Health Concerns Infection Onset Date Last Indicated Resolved Time COVID-19 03/05/2022 03/05/2022 03/15/2022 7:18 PM EDT documented as of this encounter Care Teams Order Administrator Relationship Specialty Start Date End Date Caitlyn Bowie MD 3400 [facility] 1 [place] [address] PCP - General Internal Medicine 05/06/21 Henry Kelly MD Pulmonary Department [address] [place] [address], [address] [place] [address] Physician Pulmonary Disease 09/06/17 06/22/20 documented as of this encounter
--- OUTSIDE RECORDS SUMMARY | 2024-10-17 18:13 | XMS_ITS | Encounter Summary ---
Author Organization [facility] and [facility] Address [address] [place] [address] Care Team Providers Care Detail Manager Name Role Phone Caitlyn Bowie MD Primary Care Provider +1- [phone] Encounter Details Date Type Department Care Team (Late st Contact Info) Description 09/09/2021 Scanned Document INTERFACE DEFAULT [address] [place] [address] System, Provider Not In Social History Tobacco [...] Description 10/18/2024 10:30 AM EDT Office Visit [facility] [address] [place] [address] Alfredo Michaud Jr., PA [address] [place] [address] [place] [address] 10/31/2024 1:00 PM EDT Office Visit [facility] at [address] - [address] [facility] [place] [address] Ronald Mills MD 240 [facility] Max A1 [place] [address] documented as of this encounter Visit Diagnoses Not on filedocumented in this encounter Additional Health Concerns Infection Onset Date Last Indicated Resolved Time COVID-19 03/05/2022 03/05/2022 03/15/2022 7:18 PM EDT Assessment Noted Time PHQ-9 Depression Total Score: 2 11/07/19 19 2:06 PM EDT documented as of this encounter Care Teams Detail Manager Relationship Specialty Start Date End Date Caitlyn Bowie MD [address] [address] PCP - General Internal Medicine 05/06/21 documented as of this encounter
--- OUTSIDE RECORDS SUMMARY | 2024-10-17 18:13 | XMS_ITS | Encounter Summary ---
Author Organization [facility] and [facility] Address [address] [place] [address] Care Team Providers Care Stitching Department Supervisor Name Role Phone Caitlyn Bowie MD Primary Care Provider +1- [phone] Encounter Details Date Type Department Care Team (Late st Contact Info) Description 05/17/2023 Scanned Document INTERFACE DEFAULT [address] [place] [address] System, Provider Not In Social History Tobacco [...] Description 10/18/2024 10:30 AM EDT Office Visit [facility] [address] [place] [address] Alfredo Michaud Jr., PA [address] [place] [address] [place] [address] 10/31/2024 1:00 PM EDT Office Visit [facility] at [address] - [address] [facility] [place] [address] Ronald Mills MD [address] [place] [address] documented as of this encounter [...] documented as of this encounter Care Teams Stitching Department Supervisor Relationship Specialty Start Date End Date Caitlyn Bowie MD 3406 [facility] 1 [place] [address] PCP - General Internal Medicine 05/06/21 documented as of this encounter
--- OUTSIDE RECORDS SUMMARY | 2024-10-17 18:13 | XMS_ITS | Encounter Summary ---
Author Organization [facility] Address [address] [place] [address] Phone Care Team Providers Care Sandblaster Supervisor Name Role Phone Caitlyn Bowie MD Primary Care Provider +1- [phone] Encounter Details Date Type Department Care Team (Late st Contact Info) Description 08/30/2024 Abstract [facility] [address] [place] [address] Adalgisa Whitney MD [address] [place] [address] Social History Tobacco Use Types Packs/Day [...] Description 10/18/2024 10:30 AM EDT Office Visit [facility] [address] [place] [address] Alfredo Michaud Jr., EMELIA [address] [place] [address] [place] [address] 10/31/2024 1:00 PM EDT Office Visit [facility] 20 [facility] - NP7[address] [facility] [place] [address] Ronald Mills MD 240 [facility] A1 [place] [address] documented as of this encounter Visit Diagnoses Not on filedocumented in this encounter Additional Health Concerns Assessment Noted Time PHQ-9 Depression Total Score: 2 11/07/19 19 2:06 PM EDT documented as of this encounter Care Teams Sandblaster Supervisor Relationship Specialty Start Date End Date Caitlyn Bowie MD [address] [address] PCP - General Internal Medicine 05/06/21 documented as of this encounter
--- OUTSIDE RECORDS SUMMARY | 2024-10-17 18:13 | XMS_ITS | Encounter Summary ---
Author Organization [facility] Address [address] [place] [address] Care Team Providers Care Hopper Feeder Name Role Phone Caitlyn Bowie MD Primary Care Provider +1- [phone] Encounter Details Date Type Department Care Team (Late st Contact Info) Description 06/20/2022 Scanned Document INTERFACE DEFAULT [address] [place] [address] System, Provider Not In Social History Tobacco [...] Description 10/18/2024 10:30 AM EDT Office Visit [facility] [address] [place] [address] Alfredo Michaud Jr., PA [address] [place] [address] [place] [address] 10/31/2024 1:00 PM EDT Office Visit [facility] at [address] - [address] [facility] [place] [address] Ronald Mills MD [address] [place] [address] documented as of this encounter [...] documented as of this encounter Care Teams Hopper Feeder Relationship Specialty Start Date End Date Caitlyn Bowie MD [address] [address] PCP - General Internal Medicine 05/06/21 documented as of this encounter
--- OUTSIDE RECORDS SUMMARY | 2024-10-17 18:13 | XMS_ITS | Encounter Summary ---
Author Organization [facility] Address [address] [place] [address] Care Team Providers Care Airplane Patroller Name Role Phone Caitlyn Bowie MD Primary Care Provider +1- [phone] Encounter Details Date Type Department Care Team (Late st Contact Info) Description 07/07/2021 Scanned Document INTERFACE DEFAULT [address] [place] [address] System, Provider Not In Social History Tobacco [...] Description 10/18/2024 10:30 AM EDT Office Visit [facility] [address] [place] [address] Alfredo Michaud Jr., PA [address] [place] [address] [place] [address] 10/31/2024 1:00 PM EDT Office Visit [facility] at [address] - [address] [facility] [place] [address] Ronald Mills MD 240 [facility] Max [address]1 [place] [address] documented as of this encounter Visit Diagnoses Not on filedocumented in this encounter Additional Health Concerns Infection Onset Date Last Indicated Resolved Time COVID-19 03/05/2022 03/05/2022 03/15/2022 7:18 PM EDT Assessment Noted Time PHQ-9 Depression Total Score: 2 11/07/19 19 2:06 PM EDT documented as of this encounter Care Teams Airplane Patroller Relationship Specialty Start Date End Date Caitlyn Bowie MD [address] [address] PCP - General Internal Medicine 05/06/21 documented as of this encounter
--- OUTSIDE RECORDS SUMMARY | 2024-10-17 18:13 | XMS_ITS | Encounter Summary ---
Author Organization [facility] and [facility] Address [address] [place] [address] Care Team Providers Care Manager Sterile Name Role Phone Caitlyn Bowie MD Primary Care Provider +1- [phone] Encounter Details Date Type Department Care Team (Late st Contact Info) Description 05/02/2022 Scanned Document INTERFACE DEFAULT [address] [place] [address] System, Provider Not In Social History Tobacco [...] Description 10/18/2024 10:30 AM EDT Office Visit [facility] [address] [place] [address] Alfredo Michaud Jr., PA [address] [place] [address] [place] [address] 10/31/2024 1:00 PM EDT Office Visit [facility] at [address] - [address] [facility] [place] [address] Ronald Mills MD 240 [facility] Max A1 [place] [address] documented as of this encounter [...] as of this encounter Care Teams Manager Sterile Relationship Specialty Start Date End Date Caitlyn Bowie MD [address] [address] PCP - General Internal Medicine 05/06/21 documented as of this encounter
--- OUTSIDE RECORDS SUMMARY | 2024-10-17 18:13 | XMS_ITS | Encounter Summary ---
Author Organization [facility] Address [address] [place] [address] Care Team Providers Care Ethernet Network Architect Name Role Phone Caitlyn Bowie MD Primary Care Provider +1- [phone] Encounter Details Date Type Department Care Team (Late st Contact Info) Description 06/08/2022 Scanned Document INTERFACE DEFAULT [address] [place] [address] System, Provider Not In Social History Tobacco [...] Description 10/18/2024 10:30 AM EDT Office Visit [facility] [address] [place] [address] Alfredo Michaud Jr., PA [address] [place] [address] [place] [address] 10/31/2024 1:00 PM EDT Office Visit [facility] at [address] - NP[address] [place] [address] [place] [address] Ronald Mills MD [address] [place] [address] documented as of this encounter [...] documented as of this encounter Care Teams Ethernet Network Architect Relationship Specialty Start Date End Date Caitlyn Bowie MD [address] [address] PCP - General Internal Medicine 05/06/21 documented as of this encounter
--- OUTSIDE RECORDS SUMMARY | 2024-10-17 18:13 | XMS_ITS | Encounter Summary ---
Author Organization [facility] Address [address] [place] [address] Care Team Providers Care Big Data Engineer Name Role Phone Caitlyn Bowie MD Primary Care Provider +1- [phone] Encounter Details Date Type Department Care Team (Late st Contact Info) Description 09/07/2021 Scanned Document INTERFACE DEFAULT [address] [place] [address] System, Provider Not In Social History Tobacco [...] Description 10/18/2024 10:30 AM EDT Office Visit [facility] [address] [place] [address] Alfredo Michaud Jr., PA [address] [place] [address] [place] [address] 10/31/2024 1:00 PM EDT Office Visit [facility] at [address] - [address] [facility] [place] [address] Ronald Mills MD [address] [place] [address] documented as of this encounter [...] documented as of this encounter Care Teams Big Data Engineer Relationship Specialty Start Date End Date Caitlyn Bowie MD [address] [address] PCP - General Internal Medicine 05/06/21 documented as of this encounter
--- OUTSIDE RECORDS SUMMARY | 2024-10-17 18:13 | XMS_ITS | Encounter Summary ---
Author Organization [facility] Address [address] [place] [address] Care Team Providers Care Softball Core Molder Name Role Phone Caitlyn Bowie MD Primary Care Provider +1- [phone] Encounter Details Date Type Department Care Team (Late st Contact Info) Description 05/16/2023 Scanned Document INTERFACE DEFAULT [address] [place] [address] System, Provider Not In Social History Tobacco [...] Description 10/18/2024 10:30 AM EDT Office Visit [facility] [address] [place] [address] Alfredo Michaud Jr., PA [address] [place] [address] [place] [address] 10/31/2024 1:00 PM EDT Office Visit [facility] at [address] - NP[address] [place] [address] [place] [address] Ronald Mills MD 240 [facility] Max A1 [place] [address] documented as of this encounter [...] documented as of this encounter Care Teams Softball Core Molder Relationship Specialty Start Date End Date Caitlyn Bowie MD [address] [address] PCP - General Internal Medicine 05/06/21 documented as of this encounter
--- OUTSIDE RECORDS SUMMARY | 2024-10-17 18:13 | XMS_ITS ---
Author Organization [facility] Address [address] [facility] [address] [place] [address] Care Team Providers Care Infection Prevention Specialist Name Role Phone EVELIN RAMSAY Primary Care Provider eYnny Hou Unavailable [phone] Allergies Allergen (clinical drug ingredient) Drug/Non Drug [...] bedtime, 1/2 tab prn during the day [facility] 06/10/2014 Active Advair HFA 230-21MCG/ACT 2 Inhalation tw ice daily for -3 06/10/2014 Active EpiPen Active Meclizine HCl 25 MG 1 tablet as needed Orally [facility] 06/10/2014 Active Rosuvastatin Calcium 05/03/2024 Active predniSONE 2.5 MG Oral for 30 Active Singulair 10 MG 1 tablet Orally Once a day Active Metoprolol Succinate ER 50 MG 1 tablet Orally Once a day Active Synthroid 25MCG 1 ORAL daily for -3 [facility] 06/10/2014 Active Albuterol Sulfate (2.5 MG/3ML)0.083% Inhalation [...] Encounters Encounter Location Date Provider Diagnosis Total [address] [place] [address] 07/09/2024 Yenny Lovettva Urgency of urination R39.15 [...] Notes * TONIE WATSONOB:1945 (79 yo F)Acc No.[id number]:07/09/2024 PROGRESS NOTES Patient:?SHIRLEY CINDA Appointment Provider:?Yenny doan M.D. :1945???Age:79 Y???Sex:Female D ate:07/09/2024 Address:[address] [place] [address], [facility] Pcp:EVELIN RAMSAY Subjective: * Chief Complaints: * [...] ODORED DISCHARGE.?no?skin complaints.? * Medical History:? * Marketing Rep History:?/ Para?2/2.?Sexual activity?not currently sexually active.?Last Pap [...] mm Hg, Temp: 98.0 F. * Examination: ???LAMINATION TECHNICIAN exam: ?EXTERNAL GENITALIA:?Normal female. No lesions, erythema [...] Elizalde M.D. Date:?07/09/2024 Generated for Arely paige/Sebastian/Zacheryitting on:?10/17/2024 06:12 PM EDT History and Physical Notes * HPI (History [...] Category Sub-Category Detail Notes Category Not es LAMINATION TECHNICIAN exam CERVIX: surgically absent VAGINA: atrophic changes, er ythematous with yellow white discharge, pH>4.5, +whiff test EXTERNAL GENITALIA: Normal female. No le sions, erythema or discharge UTERUS: absent ADNEXA: surgically absent
--- OUTSIDE RECORDS SUMMARY | 2024-10-17 18:13 | XMS_ITS | Encounter Summary ---
Author Organization [facility] Address [address] [place] [phone] Care Team Providers Care Dowel Machine Operator Name Role Phone Caitlyn Bowie MD Primary Care Provider +1- [phone] Encounter Details Date Type Department Care Team (Late st Contact Info) Description 04/19/2023 Scanned Document INTERFACE DEFAULT [address] [place] [address] System, Provider Not In Social History Tobacco [...] Description 10/18/2024 10:30 AM EDT Office Visit [facility] [address] [place] [address] Alfredo Michaud Jr., PA [address] [place] [address] [place] [address] 10/31/2024 1:00 PM EDT [facility] [address] - NP7[address] [facility] [place] [address] Ronald Mills MD [address] [place] [address] documented as of this encounter [...] documented as of this encounter Care Teams Dowel Machine Operator Relationship Specialty Start Date End Date Caitlyn Bowie MD [address] [address] PCP - General Internal Medicine 05/06/21 documented as of this encounter
--- OUTSIDE RECORDS SUMMARY | 2024-10-17 18:13 | XMS_ITS | Encounter Summary ---
Author Organization [facility] Address [address] [place] [address] Care Team Providers Care Drivematic Machine Operator Name Role Phone Caitlyn Bowie MD Primary Care Provider +1- [phone] Encounter Details Date Type Department Care Team (Late st Contact Info) Description 04/20/2023 Scanned Document INTERFACE DEFAULT [address] [place] [address] System, Provider Not In Social History Tobacco [...] Description 10/18/2024 10:30 AM EDT Office Visit [facility] [address] [place] [address] Alfredo Michaud Jr., PA [address] [place] [address] [place] [address] 10/31/2024 1:00 PM EDT Office Visit [facility] at [address] - NP7[address]301 [facility] [place] [facility] [place] [address] Ronald Mills MD [address] [facility] [address] [place] [address] documented as of this encounter [...] documented as of this encounter Care Teams Drivematic Machine Operator Relationship Specialty Start Date End Date Caitlyn Bowie MD [address] [address] PCP - General Internal Medicine 05/06/21 documented as of this encounter
--- OUTSIDE RECORDS SUMMARY | 2024-10-17 18:13 | XMS_ITS | Encounter Summary ---
Author Organization [facility] and [facility] Address [address] [place] [address] Care Team Providers Care Road Cleaner Name Role Phone Caitlyn Bowie MD Primary Care Provider +1- [phone] Encounter Details Date Type Department Care Team (Late st Contact Info) Description 07/06/2021 Scanned Document INTERFACE DEFAULT [address] [place] [address] System, Provider Not In Social History Tobacco [...] Description 10/18/2024 10:30 AM EDT Office Visit [facility] [address] [place] [address] Alfredo Michaud Jr., PA [address] [place] [address] [place] [address] 10/31/2024 1:00 PM EDT Office Visit [facility] at [address] - NP[address]301 [facility] [place] [address] Ronald Mills MD [address] [facility] [address] [place] [address] documented as of this encounter Visit Diagnoses Not on filedocumented in this encounter Additional Health Concerns Infection Onset Date Last Indicated Resolved Time COVID-19 03/05/2022 03/05/2022 03/15/2022 7:18 PM EDT Assessment Noted Time PHQ-9 Depression Total Score: 2 11/07/19 19 2:06 PM EDT documented as of this encounter Care Teams Road Cleaner Relationship Specialty Start Date End Date Caitlyn Bowie MD [address] [address] PCP - General Internal Medicine 05/06/21 documented as of this encounter
--- OUTSIDE RECORDS SUMMARY | 2024-10-17 18:13 | XMS_ITS | Encounter Summary ---
Author Organization [facility] Address [address] [place] [address] Care Team Providers Care Machine Wiper Name Role Phone Pcp, No Primary Care Provider Brennan Mario MD Primary Care Provider [phone] Caitlyn Bowie MD Primary Care Provider +1- [phone] Encounter Details Date Type Department Care Team (Late st Contact Info) Description 01/04/2022 Scanned Document [facility] Neurology Ophthalmology [address] [address] Yary Whitten DO [address] [place] [address] Social History Tobacco Use Types Packs/Day [...] filedocumented in this encounter Care Teams Machine Wiper Relationship Specialty Start Date End Date Pcp, No PCP - General General Medicine 10/04/21 07/18/22 Brennan Burnett MD [address] [place] [address] PCP - General 07/19/22 03/19/23 Caitlyn Bowie MD 3400 [place] [address] PCP - General Internal Medicine 03/20/23 documented as of this encounter
--- OUTSIDE RECORDS SUMMARY | 2024-10-17 18:13 | XMS_ITS | Encounter Summary ---
Author Organization [facility] Address [address] [place] [address] Care Team Providers Care Perfect Binder Operator Name Role Phone Caitlyn Bowie MD Primary Care Provider +1- [phone] Encounter Details Date Type Department Care Team (Late st Contact Info) Description 10/23/2018 Scanned Document [facility] Health Information Management [address] [place] [address] External, Provider Social History Tobacco Use Types [...] Description 10/18/2024 10:30 AM EDT Office Visit [facility] [address] [place] [address] Alfredo Michaud Jr., EMELIA [address] [place] [address] [place] [address] 10/31/2024 1:00 PM EDT Office Visit Hematology Program at [address] - NP7-[address] [place] [address] Ronald Mills MD [address] [place] [address] documented as of this encounter Visit Diagnoses Not on filedocumented in this encounter Additional Health Concerns Infection Onset Date Last Indicated Resolved Time COVID-19 03/05/2022 03/05/2022 03/15/2022 7:18 PM EDT documented as of this encounter Care Teams Perfect Binder Operator Relationship Specialty Start Date End Date Caitlyn Bowie MD 3400 [facility] 1 [place] [address] PCP - General Internal Medicine 05/06/21 Henry Kelly MD Pulmonary Department [address] [place] [address], [address] [place] [address] Physician Pulmonary Disease 09/06/17 06/22/20 documented as of this encounter
--- OUTSIDE RECORDS SUMMARY | 2024-10-17 18:13 | XMS_ITS | Encounter Summary ---
Author Organization [facility] Address [address] [place] [address] Care Team Providers Care Administrative Support Associate Name Role Phone Caitlyn Bowie MD Primary Care Provider +1- [phone] Encounter Details Date Type Department Care Team (Late st Contact Info) Description 09/02/2021 Scanned Document INTERFACE DEFAULT [address] [place] [address] System, Provider Not In Social History Tobacco [...] Description 10/18/2024 10:30 AM EDT Office Visit [facility] [address] [place] [address] Alfredo Michaud Jr., PA [address] [place] [address] [place] [address] 10/31/2024 1:00 PM EDT [facility] Visit [facility] [address] - NP7-301 [facility] [place] [address] Ronald Mills MD [address] [place] [address] documented as of this encounter [...] as of this encounter Care Teams Administrative Support Associate Relationship Specialty Start Date End Date Caitlyn Bowie MD [address] [address] PCP - General Internal Medicine 05/06/21 documented as of this encounter
--- OUTSIDE RECORDS SUMMARY | 2024-10-17 18:13 | XMS_ITS | Encounter Summary ---
Author Organization [facility] Address [address] [place] [address] Care Team Providers Care Control Clerk Auditing Name Role Phone Caitlyn Bowie MD Primary Care Provider +1- [phone] Reason for Visit * Reason Comments Triage extream dry skin Encounter Details Date Type Department Care Team ([facility] st Contact Info) Description 05/12/2023 Telephone Medical Dermatology at [address] [address] Augustine Vargas MD [address] [place] [address] Triage (extream dry skin) Social History [...] to her by [facility]. Vargas at the [facility]. Requested that she send pictures [...] know if there's something the can prescribe. [phone] documented in this encounter Plan of Treatment Upcoming Encounters Date Type Department Care Team (Late st Contact Info) Description 10/18/2024 10:30 AM EDT Office Visit [facility] [address] [place] [address] Alfredo Michaud Jr., PA [address] [place] [address] [place] [address] 10/31/2024 1:00 PM EDT Office Visit [facility] [address] [facility] - NP7[address] [place], [place] [address] Ronald Mills MD [address] [place] [address], [place] [address] documented as of this encounter Visit Diagnoses Not on filedocumented in this encounter Additional Health Concerns Assessment Noted Time PHQ-9 Depression Total Score: 2 11/07/19 19 2:06 PM EDT documented as of this encounter Care Teams Control Clerk Auditing Relationship Specialty Start Date End Date Caitlyn Bowie MD [address] [address] PCP - General Internal Medicine 05/06/21 documented as of this encounter
--- OUTSIDE RECORDS SUMMARY | 2024-10-17 18:13 | XMS_ITS | Encounter Summary ---
Author Organization [facility] Address [address] [place] [address] Care Team Providers Care Hedis Abstractor Name Role Phone Caitlyn Bowie MD Primary Care Provider +1- [phone] Encounter Details Date Type Department Care Team (Late st Contact Info) Description 06/28/2022 Scanned Document INTERFACE DEFAULT [address] [place] [address] System, Provider Not In Social History Tobacco [...] Description 10/18/2024 10:30 AM EDT Office Visit [facility] [address] [place] [address] Alfredo Michaud Jr., PA [address] [place] [address] [place] [address] 10/31/2024 1:00 PM EDT Office Visit [facility] at [address] - NP7-[address] [place] [address] [place] [address] Ronald Mills MD [address] [place] [address] documented as of this encounter [...] documented as of this encounter Care Teams Hedis Abstractor Relationship Specialty Start Date End Date Caitlyn Bowie MD [address] [address] PCP - General Internal Medicine 05/06/21 documented as of this encounter
--- OUTSIDE RECORDS SUMMARY | 2024-10-17 18:13 | XMS_ITS | Encounter Summary ---
Author Organization [facility] Address [address] [place] [address] Care Team Providers Care Senior Biostatistician Name Role Phone Caitlyn Bowie MD Primary Care Provider +1- [phone] Encounter Details Date Type Department Care Team (Late st Contact Info) Description 04/22/2022 Scanned Document INTERFACE DEFAULT [address] [place] [address] System, Provider Not In Social History Tobacco [...] Description 10/18/2024 10:30 AM EDT Office Visit [facility] [address] [place] [address] Alfredo Michaud Jr., PA [address] [place] [address] [place] [address] 10/31/2024 1:00 PM EDT Office Visit [facility] at [address] - NP7-[address] [place] [address] [place] [address] Ronald Mills MD 240 [facility] [address] [place] [address] documented as of this encounter [...] as of this encounter Care Teams Senior Biostatistician Relationship Specialty Start Date End Date Caitlyn Bowie MD [address] [address] PCP - General Internal Medicine 05/06/21 documented as of this encounter
--- OUTSIDE RECORDS SUMMARY | 2024-10-17 18:13 | XMS_ITS | Encounter Summary ---
Author Organization [facility] Address [address] [place] [address] Phone Care Team Providers Care Radiation Oncology Nurse Name Role Phone Caitlyn Bowie MD Primary Care Provider +1- [phone] Encounter Details Date Type Department Care Team (Late st Contact Info) Description 10/10/2024 Documentation Only [facility] [address] [place] [address] [place]ra [place], [place] [address] [place] [address] Social History Tobacco Use Types Packs/Day Years Used Date Smoking Tobacco: Never Assessed Comments Unknown Sex and Gender Information Value Date Recorded Sex Assigned at Not on file Legal Sex Female 2:00 PM EDT Gender Identity Not on file Sexual Orientation Not on file documented as of this encounter Plan of Treatment Upcoming Encounters Date Type Department Care Team (Late st Contact Info) Description 12/27/2024 2:30 PM EDT Office Visit [facility] [address] [place] [address] Rubén Ashraf MD [address] [place] [address] [place] [address] documented as of this encounter Visit Diagnoses Not on filedocumented in this encounter Care Teams Radiation Oncology Nurse Relationship Specialty Start Date End Date Caitlyn Bowie MD [address] [place], [place] PCP - General Internal Medicine 09/24/24 documented as of this encounter
--- OUTSIDE RECORDS SUMMARY | 2024-10-17 18:13 | XMS_ITS | Encounter Summary ---
Author Organization [facility] Address [address] [place] [address] Care Team Providers Care Ring Making Machine Operator Name Role Phone Caitlyn Bowie MD Primary Care Provider +1- [phone] Encounter Details Date Type Department Care Team (Late st Contact Info) Description 01/02/2024 Scanned Document INTERFACE DEFAULT [address] [place] [address] System, Provider Not In Social History Tobacco [...] Description 10/18/2024 10:30 AM EDT Office Visit [facility] [address] [place] [address] Alfredo Michaud Jr., PA [address] [place] [address] [place] [address] 10/31/2024 1:00 PM EDT Office Visit [facility] at [address] - NP7-301 [facility] [place] [address] Ronald Mills MD 240 [facility] [address] [place] [address] documented as of this encounter [...] documented as of this encounter Care Teams Ring Making Machine Operator Relationship Specialty Start Date End Date Caitlyn Bowie MD [address] [address] PCP - General Internal Medicine 05/06/21 documented as of this encounter
--- OUTSIDE RECORDS SUMMARY | 2024-10-17 18:13 | XMS_ITS | Encounter Summary ---
Author Organization [facility] Address [address] [place] [address] Care Team Providers Care Weld Inspector Name Role Phone Caitlyn Bowie MD Primary Care Provider +1- [phone] Encounter Details Date Type Department Care Team (Late st Contact Info) Description 09/28/2015 Scanned Document [facility] Health Information Management [address] [place] [address] External, Provider Social History Tobacco Use Types [...] EDT Office Visit [facility] [address] [place] [address] Alfredo Michaud Jr., EMELIA [address] [place] [address] [place] [address] 10/31/2024 1:00 PM EDT Office Visit Hematology Program at [address] - NP7[address]301 [place] [address] Ronald Mills MD [address] [place] [address] documented as of this encounter Procedures Procedure Name Priority Date/Time Associated Diagnosis Comments LAB SCAN Routine 09/09/2015 documented in this encounter Results * Lab Scan (09/09/2015) Blood specimen (specimen) us Provider External LAB BLOOD ORDERABLES Final Res ult [facility] documented in this encounter Visit Diagnoses Not on filedocumented in this encounter Additional Health Concerns Infection Onset Date Last Indicated Resolved Time COVID-19 03/05/2022 03/05/2022 03/15/2022 7:18 PM EDT documented as of this encounter Care Teams Weld Inspector Relationship Specialty Start Date End Date Caitlyn Bowie MD 3400 [facility] 1 [place] [address] PCP - General Internal Medicine 05/06/21 Henry Kelly MD Pulmonary Department [address] [place] [employer] [place] [address] Physician Pulmonary Disease 09/06/17 06/22/20 documented as of this encounter
--- OUTSIDE RECORDS SUMMARY | 2024-10-17 18:13 | XMS_ITS | Encounter Summary ---
Author Organization [facility] Address [address] [place] [address] Care Team Providers Care Complex Human Resources Manager Name Role Phone Caitlyn Bowie MD Primary Care Provider +1- [phone] Encounter Details Date Type Department Care Team (Late st Contact Info) Description 04/28/2022 Scanned Document INTERFACE DEFAULT [address] [place] [address] System, Provider Not In Social History Tobacco [...] Description 10/18/2024 10:30 AM EDT Office Visit [facility] [address] [place] [address] Alfredo Michaud Jr., PA [address] [place] [address] [place] [address] 10/31/2024 1:00 PM EDT Office Visit [facility] at [address] - NP7-[address] [facility] [place] [address] Ronald Mills MD [address] [place] [address] documented as of this encounter [...] documented as of this encounter Care Teams Complex Human Resources Manager Relationship Specialty Start Date End Date Caitlyn oBwie MD [address] [address] PCP - General Internal Medicine 05/06/21 documented as of this encounter
--- OUTSIDE RECORDS SUMMARY | 2024-10-17 18:13 | XMS_ITS | Encounter Summary ---
Author Organization [facility] Address [address] [place] [address] Care Team Providers Care Internet Developer Name Role Phone Caitlyn Bowie MD Primary Care Provider +1- [phone] Encounter Details Date Type Department Care Team (Late st Contact Info) Description 04/13/2023 Scanned Document INTERFACE DEFAULT [address] [place] [address] System, Provider Not In Social History Tobacco [...] Description 10/18/2024 10:30 AM EDT Office Visit [facility] [address] [place] [address] Alfredo Michaud Jr., PA [address] [place] [address] [place] [address] 10/31/2024 1:00 PM EDT Office Visit [facility] at [address] - NP7-[address] [place] [address] [facility] [place] [address] Ronald Mills MD 240 [facility] [address] [place] [address] documented as of this encounter [...] as of this encounter Care Teams Internet Developer Relationship Specialty Start Date End Date Caitlyn Bowie MD [address] [address] PCP - General Internal Medicine 05/06/21 documented as of this encounter
--- OUTSIDE RECORDS SUMMARY | 2024-10-17 18:13 | XMS_ITS | Encounter Summary ---
Author Organization [facility] Address [address] [place] [address] Care Team Providers Care Curator Natural History Museum Name Role Phone Caitlyn Bowie MD Primary Care Provider +1- [phone] Encounter Details Date Type Department Care Team (Late st Contact Info) Description 09/10/2021 Scanned Document Cardiovascular Medicine at [address] [address] Norma Renee MD [address] [place] [phone] Social History Tobacco Use Types Packs/Day Years [...] Description 10/18/2024 10:30 AM EDT Office Visit [facility] [address] [place] [address] Alfredo Michaud Jr., EMELIA [address] [place] [address] [place] [address] 10/31/2024 1:00 PM EDT Office Visit [facility] at [address] - [address] [place] [address] Ronald Mills MD 240 [facility] A1 [place] [address] documented as of this encounter Visit Diagnoses Not on filedocumented in this encounter Additional Health Concerns Infection Onset Date Last Indicated Resolved Time COVID-19 03/05/2022 03/05/2022 03/15/2022 7:18 PM EDT Assessment Noted Time PHQ-9 Depression Total Score: 2 11/07/19 19 2:06 PM EDT documented as of this encounter Care Teams Curator Natural History Museum Relationship Specialty Start Date End Date Caitlyn Bowie MD [address] [address] PCP - General Internal Medicine 05/06/21 documented as of this encounter
--- OUTSIDE RECORDS SUMMARY | 2024-10-17 18:13 | XMS_ITS | Encounter Summary ---
Author Organization [facility] and [facility] Address [address] [place] [address] Care Team Providers Care Alterations Tailor Name Role Phone Caitlyn Bowie MD Primary Care Provider +1- [phone] Encounter Details Date Type Department Care Team (Late st Contact Info) Description 05/10/2022 Scanned Document Cardiovascular Medicine at [address] [address] Norma Renee MD [address] [place] [phone] Social History Tobacco Use Types Packs/Day Years [...] Description 10/18/2024 10:30 AM EDT Office Visit [facility] [address] [place] [address] Alfredo Michaud Jr., EMELIA [address] [place] [address] [place] [address] 10/31/2024 1:00 PM EDT Office Visit [facility] at [address] - NP7-301 [facility] [place] [address] Ronald Mills MD 240 [facility] A1 [place] [address] documented as of this encounter Visit Diagnoses Not on filedocumented in this encounter Additional Health Concerns Assessment Noted Time PHQ-9 Depression Total Score: 2 11/07/19 19 2:06 PM EDT documented as of this encounter Care Teams Alterations Tailor Relationship Specialty Start Date End Date Caitlyn Bowie MD [address] [address] PCP - General Internal Medicine 05/06/21 documented as of this encounter
--- OUTSIDE RECORDS SUMMARY | 2024-10-17 18:13 | XMS_ITS | Encounter Summary ---
Author Organization [facility] and [facility] Address [address] [place] [address] Care Team Providers Care Refrigeration Service Inspector Name Role Phone Caitlyn Bowie MD Primary Care Provider +1- [phone] Encounter Details Date Type Department Care Team (Late st Contact Info) Description 12/06/2018 Scanned Document [facility] Health Information Management [address] [place] [address] External, Provider Social History Tobacco Use Types [...] Description 10/18/2024 10:30 AM EDT Office Visit [facility] [address] [place] [address] Alfredo Michaud Jr., EMELIA [address] [place] [address] [place] [address] 10/31/2024 1:00 PM EDT Office Visit Hematology Program at [address] - NP7-[address] [place] [address] Ronald Mills MD [address] [place] [address] documented as of this encounter [...] documented as of this encounter Care Teams Refrigeration Service Inspector Relationship Specialty Start Date End Date Caitlyn Bowie MD 3400 [facility] 1 [place] [address] PCP - General Internal Medicine 05/06/21 Henry Kelly MD Pulmonary Department 175 [facility], [address] [place] [address] Physician Pulmonary Disease 09/06/17 06/22/20 documented as of this encounter
--- OUTSIDE RECORDS SUMMARY | 2024-10-17 18:13 | XMS_ITS | Encounter Summary ---
Author Organization [facility] and [facility] Address [address] [place] [address] Care Team Providers Care Computer Systems Architect Name Role Phone Caitlyn Bowie MD Primary Care Provider +1- [phone] Encounter Details Date Type Department Care Team (Late st Contact Info) Description 07/08/2022 Scanned Document Cardiovascular Medicine at [address] [address] Norma Renee MD [address] [place] [phone] Social History Tobacco Use Types Packs/Day Years [...] Description 10/18/2024 10:30 AM EDT Office Visit [facility] [address] [place] [address] Alfredo Michaud Jr., EMELIA [address] [place] [address] [place] [address] 10/31/2024 1:00 PM EDT [facility] Visit [facility] at [address] - NP7-301 [facility] [place] [facility] [place] [address] Ronald Mills MD 240 [facility] A1 [place] [address] documented as of this encounter Visit Diagnoses Not on filedocumented in this encounter Additional Health Concerns Assessment Noted Time PHQ-9 Depression Total Score: 2 11/07/19 19 2:06 PM EDT documented as of this encounter Care Teams Computer Systems Architect Relationship Specialty Start Date End Date Caitlyn Bowie MD [address] [address] PCP - General Internal Medicine 05/06/21 documented as of this encounter
--- OUTSIDE RECORDS SUMMARY | 2024-10-17 18:13 | XMS_ITS | Encounter Summary ---
Author Organization [facility] and [facility] Address [address] [place] [address] Care Team Providers Care Optics Technical Officer Name Role Phone Caitlyn Bowie MD Primary Care Provider +1- [phone] Encounter Details Date Type Department Care Team (Late st Contact Info) Description 06/27/2022 Scanned Document INTERFACE DEFAULT [address] [place] [address] System, Provider Not In Social History Tobacco [...] Description 10/18/2024 10:30 AM EDT Office Visit [facility] [address] [place] [phone] Alfredo Michaud Jr., PA [address] [place] [address] [place] [address] 10/31/2024 1:00 PM EDT Office Visit [facility] at [address] - NP[address]-301 [facility] [place] [address] Ronald Mills MD [address]1 [place] [address] documented as of this [...] documented as of this encounter Care Teams Optics Technical Officer Relationship Specialty Start Date End Date Caitlyn Bowie MD [address] [address] PCP - General Internal Medicine 05/06/21 documented as of this encounter
--- OUTSIDE RECORDS SUMMARY | 2024-10-17 18:13 | XMS_ITS | Encounter Summary ---
Author Organization [facility] Address [address] [place] [address] Care Team Providers Care Men'S Designer Name Role Phone Caitlyn Bowie MD Primary Care Provider +1- [phone] Encounter Details Date Type Department Care Team (Late st Contact Info) Description 04/25/2022 Scanned Document INTERFACE DEFAULT [address] [place] [address] System, Provider Not In Social History Tobacco [...] 10/18/2024 10:30 AM EDT Office Visit [facility] [address] [place] [address] Alfredo Michaud Jr., PA [address] [place] [address] [place] [address] 10/31/2024 1:00 PM EDT Office Visit [facility] at [address] - NP7-[address] [place] [address] [facility] [address] Ronald Mills MD 240 [facility] Max A1 [place] [phone] documented as of this encounter Visit Diagnoses Not on filedocumented in this encounter Additional Health Concerns Assessment Noted Time PHQ-9 Depression Total Score: 2 11/07/19 19 2:06 PM EDT documented as of this encounter Care Teams Men'S Designer Relationship Specialty Start Date End Date Caitlyn Bowie MD [address] [address] PCP - General Internal Medicine 05/06/21 documented as of this encounter
--- OUTSIDE RECORDS SUMMARY | 2024-10-17 18:13 | XMS_ITS | Encounter Summary ---
Author Organization [facility] Address [address] [place] [address] Care Team Providers Care Pari Mutuel Ticket Seller Name Role Phone Caitlyn Bowie MD Primary Care Provider +1- [phone] Encounter Details Date Type Department Care Team (Late st Contact Info) Description 12/23/2022 Scanned Document INTERFACE DEFAULT [address] [place] [address] System, Provider Not In Social History Tobacco [...] Description 10/18/2024 10:30 AM EDT Office Visit [facility] [address] [place] [address] Alfredo Michaud Jr., PA [address] [place] [address] [place] [address] 10/31/2024 1:00 PM EDT Office Visit [facility] at [address] - NP7-[address] [place] [address] [place] [address] Ronald Mills MD 240 [facility] Max A1 [place] [phone] documented as of this encounter Visit Diagnoses Not on filedocumented in this encounter Additional Health Concerns Assessment Noted Time PHQ-9 Depression Total Score: 2 11/07/19 19 2:06 PM EDT documented as of this encounter Care Teams Pari Mutuel Ticket Seller Relationship Specialty Start Date End Date Caitlyn Bowie MD [address] [address] PCP - General Internal Medicine 05/06/21 documented as of this encounter
--- OUTSIDE RECORDS SUMMARY | 2024-10-17 18:13 | XMS_ITS | Encounter Summary ---
Author Organization [facility] and [facility] Address [address] [place] [address] Care Team Providers Care Nurse Staff Industrial Name Role Phone Caitlyn Bowie MD Primary Care Provider +1- [phone] Encounter Details Date Type Department Care Team (Late Contact Info) Description 12/04/2018 Scanned Document [facility] Health Information Management [address] [place] [address] External, Provider Social History Tobacco Use Types [...] Description 10/18/2024 10:30 AM EDT Office Visit [facility] [address] [place] [address] Alfredo Michaud Jr., EMELIA [address] [place] [address] [place] [address] 10/31/2024 1:00 PM EDT Office Visit Hematology Program at [address] - NP7-[address] [place] [address] Ronald Mills MD 240 [facility] Max A1 [place] [address] documented as of this encounter Visit Diagnoses Not on filedocumented in this encounter Additional Health Concerns Infection Onset Date Last Indicated Resolved Time COVID-19 03/05/2022 03/05/2022 03/15/2022 7:18 PM EDT Assessment Noted Time PHQ-9 Depression Total Score: 2 11/07/19 19 2:06 PM EDT documented as of this encounter Care Teams Nurse Staff Industrial Relationship Specialty Start Date End Date Caitlyn Bowie MD 3400 [facility] 1 [place] [address] PCP - General Internal Medicine 05/06/21 Henry Kelly MD Pulmonary Department [address] [place] [address], [address] [place] [address] Physician Pulmonary Disease 09/06/17 06/22/20 documented as of this encounter
--- OUTSIDE RECORDS SUMMARY | 2024-10-17 18:13 | XMS_ITS | Encounter Summary ---
Author Organization [facility] and [facility] Address [address] [place] [address] Care Team Providers Care Cosmetics And Toiletries Salesperson Name Role Phone Caitlyn Bowie MD Primary Care Provider +1- [phone] Encounter Details Date Type Department Care Team (Late st Contact Info) Description 08/23/2022 Abstract [facility] at [address] [place] [address] Norma Renee MD [address] [place] [address] Social History Tobacco Use Types Packs/Day [...] Description 10/18/2024 10:30 AM EDT Office Visit [facility] [address] [place] [address] Alfredo Michaud Jr., PA [address] [place] [address] [place] [address] 10/31/2024 1:00 PM EDT Office Visit [facility] at [address] - NP[address]301 [facility] [place] [address] Ronald Mills MD 240 [facility] A1 [place] [address] documented as of this encounter Visit Diagnoses Not on filedocumented in this encounter Additional Health Concerns Assessment Noted Time PHQ-9 Depression Total Score: 2 11/07/19 19 2:06 PM EDT documented as of this encounter Care Teams Cosmetics And Toiletries Salesperson Relationship Specialty Start Date End Date Caitlyn Bowie MD [address] [address] PCP - General Internal Medicine 05/06/21 documented as of this encounter
--- OUTSIDE RECORDS SUMMARY | 2024-10-17 18:13 | XMS_ITS | Encounter Summary ---
Author Organization [facility] and [facility] Address [address] [place] [address] Care Team Providers Care Data Processing Consultant Name Role Phone Caitlyn Bowie MD Primary Care Provider +1- [phone] Encounter Details Date Type Department Care Team (Late st Contact Info) Description 06/24/2022 Scanned Document INTERFACE DEFAULT [address] [place] [address] System, Provider Not In Social History Tobacco [...] Description 10/18/2024 10:30 AM EDT Office Visit [facility] [address] [place] [address] Alfredo Michaud Jr., PA [address] [place] [address] [place] [address] 10/31/2024 1:00 PM EDT Office Visit [facility] at [address] [place] [address] - NP7-[address] [place] [address] [facility] [place] [address] Ronald Mills MD 240 [facility] Max A1 [place] [address] documented as of this encounter [...] as of this encounter Care Teams Data Processing Consultant Relationship Specialty Start Date End Date Caitlyn Bowie MD [address] [address] PCP - General Internal Medicine 05/06/21 documented as of this encounter
--- OUTSIDE RECORDS SUMMARY | 2024-10-17 18:13 | XMS_ITS | Encounter Summary ---
Author Organization [facility] and [facility] Address [address] [place] [address] Care Team Providers Care Mushroom Growing Supervisor Name Role Phone Caitlyn Bowie MD Primary Care Provider +1- [phone] Encounter Details Date Type Department Care Team (Late st Contact Info) Description 09/24/2015 Scanned Document [facility] at [address] [address] Kevin Espinoza MD [address] [place] [address] Social History Tobacco Use Types Packs/Day [...] Description 10/18/2024 10:30 AM EDT Office Visit [facility] [address] [place] [address] Alfredo Michaud Jr., PA [address] [place] [address] [place] [address] 10/31/2024 1:00 PM EDT Office Visit [facility] at [address] - [address]301 [facility] [place] [address] Ronald Mills MD 240 [facility] Max A1 [place] [address] documented as of this encounter Visit Diagnoses Not on filedocumented in this encounter Additional Health Concerns Infection Onset Date Last Indicated Resolved Time COVID-19 03/05/2022 03/05/2022 03/15/2022 7:18 PM EDT documented as of this encounter Care Teams Mushroom Growing Supervisor Relationship Specialty Start Date End Date Caitlyn Bowie MD 3400 [facility] 1 [address] PCP - General Internal Medicine 05/06/21 Henry Kelly MD Pulmonary Department [address] [place] [address], [address] [address] Physician Pulmonary Disease 09/06/17 06/22/20 documented as of this encounter
--- OUTSIDE RECORDS SUMMARY | 2024-10-17 18:13 | XMS_ITS | Encounter Summary ---
Author Organization [facility] and [facility] Address [address] [place] [address] Care Team Providers Care Utility Worker Production Name Role Phone Caitlyn Bowie MD Primary Care Provider +1- [phone] Encounter Details Date Type Department Care Team (Late st Contact Info) Description 12/31/2015 Scanned Document [facility]hythmia Program [address] [place] [address] External, Provider Social History Tobacco Use Types [...] Description 10/18/2024 10:30 AM EDT Office Visit [facility] [address] [place] [address] Alfredo Michaud Jr., EMELIA [address] [place] [address] [place] [address] 10/31/2024 1:00 PM EDT Office Visit Hematology Program at [address] [phone] Ronald Mills MD [address] [place] [address] documented as of this encounter Procedures Procedure Name Priority Date/Time Associated Diagnosis Comments LAB SCAN Routine 12/31/2015 documented in this encounter Results * Lab Scan (12/31/2015) Blood specimen (specimen) us Provider External LAB BLOOD ORDERABLES Final Res ult Performing Organization Address City/State/[facility] Co de Phone Number [facility] [place], [place], [facility] [[email or web address]] documented in this encounter Visit Diagnoses Not on filedocumented in this encounter Additional Health Concerns Infection Onset Date Last Indicated Resolved Time COVID-19 03/05/2022 03/05/2022 03/15/2022 7:18 PM EDT documented as of this encounter Care Teams Utility Worker Production Relationship Specialty Start Date End Date Caitlyn Bowie MD 3400 [facility] 1 [place] [address] PCP - General Internal Medicine 05/06/21 Henry Kelly MD Pulmonary Department 175 [facility], [address] [place] [address] Physician Pulmonary Disease 09/06/17 06/22/20 documented as of this encounter
--- OUTSIDE RECORDS SUMMARY | 2024-10-17 18:13 | XMS_ITS | Encounter Summary ---
Author Organization [facility] and [facility] Address [address] [place] [address] Care Team Providers Care Sql Data Analyst Name Role Phone Caitlyn Bowie MD Primary Care Provider +1- [phone] Encounter Details Date Type Department Care Team (Late st Contact Info) Description 07/28/2022 Scanned Document [facility] at [address] [place] [address] Norma Renee MD [address] [place] [address] 2 [place] [address] Social History Tobacco Use Types [...] Description 10/18/2024 10:30 AM EDT Office Visit [facility] [address] [place] [address] Alfredo Michaud Jr., EMELIA [address] [place] [address] [place] [phone] 10/31/2024 1:00 PM EDT Office Visit [facility] at [facility] 20 [facility] - NP7-301 [facility] [place] [address] Ronald Mills MD 240 [facility] A1 [place] [address] documented as of this encounter Visit Diagnoses Not on filedocumented in this encounter Additional Health Concerns Assessment Noted Time PHQ-9 Depression Total Score: 2 11/07/19 19 2:06 PM EDT documented as of this encounter Care Teams Sql Data Analyst Relationship Specialty Start Date End Date Caitlyn Bowie MD [address] [address] PCP - General Internal Medicine 05/06/21 documented as of this encounter
--- OUTSIDE RECORDS SUMMARY | 2024-10-17 18:13 | XMS_ITS | Encounter Summary ---
Author Organization [facility] and [facility] Address [address] [place] [address] Care Team Providers Care Yard Cleaner Name Role Phone Caitlyn Bowie MD Primary Care Provider +1- [phone] Encounter Details Date Type Department Care Team (Late st Contact Info) Description 06/21/2022 Scanned Document INTERFACE DEFAULT [address] [place] [address] System, Provider Not In Social History Tobacco [...] Description 10/18/2024 10:30 AM EDT Office Visit [facility] [address] [place] [address] Alfredo Michaud Jr., PA [address] [place] [address] [place] [address] 10/31/2024 1:00 PM EDT Office Visit [facility] at [address] - NP[address] [place] [address] [facility] [place] [address] Ronald Mills MD 240 [facility] Max A1 [place] [address] documented as of this encounter [...] documented as of this encounter Care Teams Yard Cleaner Relationship Specialty Start Date End Date Caitlyn Bowie MD [address] [address] PCP - General Internal Medicine 05/06/21 documented as of this encounter
--- OUTSIDE RECORDS SUMMARY | 2024-10-17 18:13 | XMS_ITS | Encounter Summary ---
Author Organization [facility] and [facility] Address [address] [place] [address] Care Team Providers Care Outreach Clinician Name Role Phone Caitlyn Bowie MD Primary Care Provider +1- [phone] Encounter Details Date Type Department Care Team (Late st Contact Info) Description 06/23/2022 Scanned Document INTERFACE DEFAULT [address] [place] [address] System, Provider Not In Social History Tobacco [...] EDT Office Visit [facility] [address] [place] [address] Alfredo Michaud Jr., PA [address] [place] [address] [place] [address] 10/31/2024 1:00 PM EDT Office Visit [facility] at [address] - NP7-[address] [place] [address] [place] [address] Ronald Mills MD 240 [facility] Max A1 [place] [phone] documented as of this encounter Visit Diagnoses Not on filedocumented in this encounter Additional Health Concerns Assessment Noted Time PHQ-9 Depression Total Score: 2 11/07/19 19 2:06 PM EDT documented as of this encounter Care Teams Outreach Clinician Relationship Specialty Start Date End Date Caitlyn Bowie MD [address] [address] PCP - General Internal Medicine 05/06/21 documented as of this encounter
--- OUTSIDE RECORDS SUMMARY | 2024-10-17 18:13 | XMS_ITS ---
Author Organization [facility] Address [address] [facility] [address] [place] [address] Care Team Providers Care Director News Name Role Phone EVELIN RAMSAY Primary Care Provider Yenny Hou Unavailable [phone] Allergies Allergen (clinical drug ingredient) Drug/Non Drug [...] day [facility] 06/10/2014 Active traZODone HCl 50MG 1 ORAL at bedtime fo r -3 [facility] 06/10/2014 Active Meclizine HCl 25 MG 1 tablet as needed Orally [facility] 06/10/2014 Active Advair HFA 230-21MCG/ACT [...] -3 [facility] 06/10/2014 Active Singulair 10 MG [...] 07/18/2024 Encounters Encounter Location Date Provider Diagnosis [address] [place] [address] 07/18/2024 Yenny Elizalde Encounter for screening mammogram [...] Notes * TONIE WATSONOB:1945 (79 yo F)Acc No.[id number]:07/18/2024 PROGRESS NOTES Patient:?CINDA WATSON Appointment Provider:?Yenny doan M.D. :1945???Age:79 Y???Sex:Female D ate:07/18/2024 Address:[address] [place] [address] Pcp:EVELIN RAMSAY Subjective: * Chief Complaints: * ???LT BREAST PAIN * HPI: ???New/Follow-up Patient Consult:? PAT C/O LEFT BREAST DISCOMFORT OF A FEW DAYS DURATION.? NO NIPPLE DISCHARGE, NO PALPABLE MASSES.? HER LAST MAMMOGRAM DONE IN AUG 2023 WAS NORMAL. * ROS:?general:?no?chest pain.?no?palpitations.?no?headache.?no?cough.?no?shortness of breath.?no?fever.?no?unexplained weight loss.?no?nausea/vomiting.?no?change in bowel movements.?no blood in stool.?no?genitourinary complaints.?no?skin complaints.? * Medical History:? * Repeat Photocomposing Machine Operator History:?/ Para?2/2.?Sexual activity?not currently sexually active.?Last Pap [...] Elizalde M.D. Date:?07/18/2024 Generated for Arely paige/Sebastian/Brandonsmitting on:?10/17/2024 06:12 PM EDT History and Physical [...]
--- OUTSIDE RECORDS SUMMARY | 2024-10-17 18:14 | XMS_ITS | Encounter Summary ---
Author Organization [facility] and [facility] Address [address] [place] [address] Care Team Providers Care Auction Clerk Name Role Phone Caitlyn Bowie MD Primary Care Provider +1- [phone] Encounter Details Date Type Department Care Team (Late st Contact Info) Description 04/14/2022 Scanned Document INTERFACE DEFAULT [address] [place] [address] System, Provider Not In Social History Tobacco [...] Description 10/18/2024 10:30 AM EDT Office Visit [facility] [address] [place] [address] Alfrdeo Michaud Jr., PA [address] [place] [address] [place] [address] 10/31/2024 1:00 PM EDT [facility] [address] - [address] [place] [address] [place] [address] Ronald Mills MD 240 [facility] Max A1 [place] [phone] documented as of this encounter Visit Diagnoses Not on filedocumented in this encounter Additional Health Concerns Assessment Noted Time PHQ-9 Depression Total Score: 2 11/07/19 19 2:06 PM EDT documented as of this encounter Care Teams Auction Clerk Relationship Specialty Start Date End Date Caitlyn Bowie MD [address] [address] PCP - General Internal Medicine 05/06/21 documented as of this encounter
--- OUTSIDE RECORDS SUMMARY | 2024-10-17 18:14 | XMS_ITS | Encounter Summary ---
Author Organization [facility] and [facility] Address [address] [place] [address] Care Team Providers Care Apple Picking Supervisor Name Role Phone Caitlyn Bowie MD Primary Care Provider +1- [phone] Encounter Details Date Type Department Care Team (Late st Contact Info) Description 01/17/2019 Scanned Document [facility] Management [address] [place] [address] External, Provider Social History Tobacco Use [...] Description 10/18/2024 10:30 AM EDT Office Visit [facility] [address] [place] [address] Alfredo Michaud Jr., PA [address] [place] [address] [place] [address] 10/31/2024 1:00 PM EDT [facility] at [address] - NP[address] [place] [address] [facility] [place] [address] Ronald Mills MD [address] [place] [address] documented as of this encounter [...] documented as of this encounter Care Teams Apple Picking Supervisor Relationship Specialty Start Date End Date Caitlyn Bowie MD 3400 [facility] 1 [place] [address] PCP - General Internal Medicine 05/06/21 Henry Kelly MD Pulmonary Department 175 [facility], [address] [place] [address] Physician Pulmonary Disease 09/06/17 06/22/20 documented as of this encounter
--- OUTSIDE RECORDS SUMMARY | 2024-10-17 18:14 | XMS_ITS ---
Author Organization [employer] [facility] [facility] Address [address] [address] Care Team Providers Care Fiction And Nonfiction Prose Writer Name Role Phone EVELIN RAMSAY Primary Care Provider Yenny Hou Unavailable [phone] RE[facility]IT [facility] if[facility] disease dept Encounters Encounter Location Date Provider Diagnosis [facility] [address] 06/11/2024 Yenny Elizalde Plan Of Treatment No Information Progress Notes * ONOFRE WATSON:1945 (79 yo F)Acc No.[id number]:06/11/2024 Patient:?CINDA W[place]SON :1945???Age:79 Y???Sex:Female Address:[address] [place] [address], [address] * true * Date:? Generated for Arely paige/Sebastian/eTransmitting on:?10/17/2024 06:13 PM EDT
--- OUTSIDE RECORDS SUMMARY | 2024-10-17 18:14 | XMS_ITS | Encounter Summary ---
Author Organization [facility] and [facility] Address [address] [place] [address] Care Team Providers Care Electro Mechanical Engineer Name Role Phone Caitlyn Bowie MD Primary Care Provider +1- [phone] Encounter Details Date Type Department Care Team (Late st Contact Info) Description 01/13/2019 Scanned Document [facility] Health Information Management [address] [place] [address] External, Provider Social History Tobacco Use Types [...] Description 10/18/2024 10:30 AM EDT Office Visit [facility] [address] [place] [address] Alfredo Michaud Jr., PA [address] [place] [address] [place] [address] 10/31/2024 1:00 PM EDT [facility] [address] - NP[address] [place] [address] [facility] [place] [place] [address] Ronald Mills MD [address] [place] [address] documented as of this encounter [...] documented as of this encounter Care Teams Electro Mechanical Engineer Relationship Specialty Start Date End Date Caitlyn Bowie MD 3400 [facility] 1 [place] [address] PCP - General Internal Medicine 05/06/21 Henry Kelly MD Pulmonary Department 175 [facility], [address] [place] [address] Physician Pulmonary Disease 09/06/17 06/22/20 documented as of this encounter
--- OUTSIDE RECORDS SUMMARY | 2024-10-17 18:14 | XMS_ITS | Encounter Summary ---
Author Organization [facility] and [facility] Address [address] [place] [address] Care Team Providers Care Automotive Quality Manager Name Role Phone Caitlyn Bowie MD Primary Care Provider +1- [phone] Encounter Details Date Type Department Care Team (Late st Contact Info) Description 04/19/2022 Scanned Document INTERFACE DEFAULT [address] [place] [address] System, Provider Not In Social History Tobacco [...] Description 10/18/2024 10:30 AM EDT Office Visit [facility] [address] [place] [address] Alfredo Michaud Jr., PA [address] [place] [address] [place] [address] 10/31/2024 1:00 PM EDT [facility] at [address] - NP[address] [place] [address] [place] [address] Ronald Mills MD 240 [facility] Max A1 [place] [address] documented as of this encounter [...] as of this encounter Care Teams Automotive Quality Manager Relationship Specialty Start Date End Date Caitlyn Bowie MD [address] [address] PCP - General Internal Medicine 05/06/21 documented as of this encounter
--- OUTSIDE RECORDS SUMMARY | 2024-10-17 18:14 | XMS_ITS | Encounter Summary ---
Author Organization [facility] and [facility] Address [address] [place] [address] Care Team Providers Care Chief Nurse Anesthetist Name Role Phone Caitlyn Bowie MD Primary Care Provider +1- [phone] Encounter Details Date Type Department Care Team (Late st Contact Info) Description 12/28/2018 Scanned Document [facility] Health Information Management [address] [place] [address] External, Provider Social History Tobacco Use Types [...] Description 10/18/2024 10:30 AM EDT Office Visit [facility] [address] [place] [address] Alfredo Michaud Jr., PA [address] [place] [address] [place] [address] 10/31/2024 1:00 PM EDT Office Visit [facility] at [address] - NP[address] [place] [address] [facility] [place] [address] Ronald Mills MD 240 [facility] A1 [place] [address] documented as of this encounter [...] as of this encounter Care Teams Chief Nurse Anesthetist Relationship Specialty Start Date End Date Caitlyn Bowie MD 3400 [facility] 1 [place] [address] PCP - General Internal Medicine 05/06/21 Henry Kelly MD Pulmonary Department 175 [facility], [address] [place] [address] Physician Pulmonary Disease 09/06/17 06/22/20 documented as of this encounter
--- OUTSIDE RECORDS SUMMARY | 2024-10-17 18:14 | XMS_ITS | Encounter Summary ---
Author Organization [facility] and [facility] Address [address] [place] [address] Care Team Providers Care Cafeteria Assistant Name Role Phone Caitlyn Bowie MD Primary Care Provider +1- [phone] Encounter Details Date Type Department Care Team (Late st Contact Info) Description 01/30/2019 Scanned Document [facility] Health Information Management [address] [place] [address] External, Provider Social History Tobacco Use Types [...] 10/18/2024 10:30 AM EDT Office Visit [facility] [address] [place] [address] Alfredo Michaud Jr., PA [address] [place] [address] [place] [address] 10/31/2024 1:00 PM EDT Office Visit [facility] at [address] - [address] [place] [address] [facility] [place] [address] Ronald Mills MD 240 [facility] [address] [place] [address] documented as of this encounter [...] as of this encounter Care Teams Cafeteria Assistant Relationship Specialty Start Date End Date Caitlyn Bowie MD 3400 [facility] 1 [place] [address] PCP - General Internal Medicine 05/06/21 Henry Kelly MD Pulmonary Department 175 [facility], [address] [place] [address] Physician Pulmonary Disease 09/06/17 06/22/20 documented as of this encounter
--- OUTSIDE RECORDS SUMMARY | 2024-10-17 18:14 | XMS_ITS | Clinical Summary ---
Author Organization [facility] Address [address] [place] [address] Care Team Providers Care Brick And Tile Making Machine Operator Name Role Phone Caitlyn Bowie Primary Care Provider [phone] Allergies Active Allergy Reactions Criticality Noted Date [...] Throat tightness Throat tightness Throat tightness Ipratropium [place] Unknown Medium 12/18/2021 Isosorbide Mononitrate 11/23/2020 Other [...] - season) 2024 09/03/2020, 08/06/2020 Influenza Vaccine (Season Ended) 2025 05/13/2023, 05/13/2022, 05/15/2021, Additional history exists DTaP,Tdap,and Td Vaccines (3 - Td or Tdap) 02/27/2026 02/28/2016, 02/17/2016 Pneumococcal Vaccine, 50+ Years Completed 08/31/2021, 03/25/2016, 09/17/2015, Additional [...] topic Insurance MEDICARE PART A & B [facility] Care Teams Brick And Tile Making Machine Operator Relationship Specialty Start Date End Date Caitlyn Bowie [address] [place] [address] PCP - General Internal Medicine 07/18/22
--- OUTSIDE RECORDS SUMMARY | 2024-10-17 18:14 | XMS_ITS | Encounter Summary ---
Author Organization [facility] Address [address] [place] [address] Care Team Providers Care Feather Duster Winder Name Role Phone Caitlyn Bowie MD Primary Care Provider +1- [phone] Encounter Details Date Type Department Care Team (Late Contact Info) Description 04/12/2022 Scanned Document [facility] Health Information Management [address] [place] [address] External, Provider Social History Tobacco Use Types [...] Description 10/18/2024 10:30 AM EDT Office Visit [facility] [address] [place] [address] Alfredo Michaud Jr., PA [address] [place] [address] [place] [address] 10/31/2024 1:00 PM EDT Office Visit [facility] at [address] - [address] [facility] [place] [address] Ronald Mills MD 240 [facility] Max A1 [place] [address] documented as of this encounter [...] as of this encounter Care Teams Feather Duster Winder Relationship Specialty Start Date End Date Caitlyn Bowie MD [address] [address] PCP - General Internal Medicine 05/06/21 documented as of this encounter
--- OUTSIDE RECORDS SUMMARY | 2024-10-17 18:14 | XMS_ITS | Encounter Summary ---
Author Organization [facility] and [facility] Address [address] [place] [address] Care Team Providers Care Metal Control Worker Name Role Phone Caitlyn Bowie MD Primary Care Provider +1- [phone] Encounter Details Date Type Department Care Team (Late st Contact Info) Description 09/15/2024 Scanned Document INTERFACE DEFAULT [address] [place] [address] System, Provider Not In Social History Tobacco [...] Description 10/18/2024 10:30 AM EDT Office Visit [facility] [address] [place] [address] Alfredo Michaud Jr., PA [address] [place] [address] [place] [address] 10/31/2024 1:00 PM EDT [facility] Visit [facility] at [address] - [address] [facility] [place] [address] Ronald Mills MD 240 [facility] Max A1 [place] [address] documented as of this encounter Procedures Procedure Name Priority Date/Time Associated Diagnosis Comments LAB SCAN 09/15/2024 12:00 AM EST LAB SCAN 09/15/2024 12:00 AM EST documented in this encounter Results * Lab Scan (09/15/2024 12:00 AM EST) us Provider Not In System LAB BLOOD ORDERABLES Carmina l Result * Lab Scan (09/15/2024 12:00 AM EST) us Provider Not In System LAB BLOOD ORDERABLES Carmina l Result documented in this encounter Visit Diagnoses Not on filedocumented in this encounter Additional Health Concerns Assessment Noted Time PHQ-9 Depression Total Score: 2 11/07/19 19 2:06 PM EDT documented as of this encounter Care Teams Metal Control Worker Relationship Specialty Start Date End Date Caitlyn Bowie MD [address] [address] PCP - General Internal Medicine 05/06/21 documented as of this encounter
--- OUTSIDE RECORDS SUMMARY | 2024-10-17 18:14 | XMS_ITS | Encounter Summary ---
Author Organization [facility] Address [address] [place] [address] Care Team Providers Care Curriculum Assistant Principal Name Role Phone Caitlyn Bowie MD Primary Care Provider +1- [phone] Encounter Details Date Type Department Care Team (Late st Contact Info) Description 04/04/2016 Scanned Document [facility] Health Information Management [address] [place] [address] External, Provider Social History Tobacco Use Types [...] Description 10/18/2024 10:30 AM EDT Office Visit [facility] [address] [place] [address] Alfredo Michaud Jr., EMELIA [address] [place] [address] [place] [address] 10/31/2024 1:00 PM EDT Office Visit Hematology Program at [address] - [address] [place] [address] Ronald Mills MD [address] [place] [address] documented as of this encounter Procedures Procedure Name Priority Date/Time Associated Diagnosis Comments LAB SCAN Routine 04/04/2016 documented in this encounter Results * Lab Scan (04/04/2016) Blood specimen (specimen) us Provider External LAB BLOOD ORDERABLES Final Res ult [facility] documented in this encounter Visit Diagnoses Not on filedocumented in this encounter Additional Health Concerns Infection Onset Date Last Indicated Resolved Time COVID-19 03/05/2022 03/05/2022 03/15/2022 7:18 PM EDT documented as of this encounter Care Teams Curriculum Assistant Principal Relationship Specialty Start Date End Date Caitlyn Bowie MD 3400 [facility] 1 [place] [address] PCP - General Internal Medicine 05/06/21 Henry Kelly MD Pulmonary Department 175 [facility], [address] [place] [address] Physician Pulmonary Disease 09/06/17 06/22/20 documented as of this encounter
--- OUTSIDE RECORDS SUMMARY | 2024-10-17 18:14 | XMS_ITS | Encounter Summary ---
Author Organization [facility] Address [address] [place] [address] Care Team Providers Care Handy Man Name Role Phone Caitlyn Bowie MD Primary Care Provider +1- [phone] Encounter Details Date Type Department Care Team (Late st Contact Info) Description 02/08/2016 Scanned Document [facility] Health Information Management [address] [place] [address] External, Provider Social History Tobacco Use Types [...] Description 10/18/2024 10:30 AM EDT Office Visit [facility] [address] [place] [address] Alfredo Michaud Jr., EMELIA [address] [place] [address] [place] [address] 10/31/2024 1:00 PM EDT Office Visit Hematology Program at [address] - [address] [place] [address] Ronald Mills MD 240 [facility] Max A1 [place] [address] documented as of this encounter Visit Diagnoses Not on filedocumented in this encounter Additional Health Concerns Infection Onset Date Last Indicated Resolved Time COVID-19 03/05/2022 03/05/2022 03/15/2022 7:18 PM EDT documented as of this encounter Care Teams Handy Man Relationship Specialty Start Date End Date Caitlyn Bowie MD [address] [facility] 1 [place] [address] PCP - General Internal Medicine 05/06/21 Henry Kelly MD Pulmonary Department [address] [place] [address], [address] [place] [address] Physician Pulmonary Disease 09/06/17 06/22/20 documented as of this encounter
--- OUTSIDE RECORDS SUMMARY | 2024-10-17 18:14 | XMS_ITS | Encounter Summary ---
Author Organization [facility] and [facility] Address [address] [place] [address] Care Team Providers Care Oracle Database Architect Name Role Phone Caitlyn Bowie MD Primary Care Provider +1- [phone] Encounter Details Date Type Department Care Team (Late st Contact Info) Description 04/16/2022 Scanned Document INTERFACE DEFAULT [address] [place] [address] System, Provider Not In Social History Tobacco [...] Description 10/18/2024 10:30 AM EDT Office Visit [facility] [address] [place] [address] Alfredo Michaud Jr., PA [address] [place] [address] [place] [address] 10/31/2024 1:00 PM EDT [facility] Visit [facility] at [address] - [address] [place] [address] [place] [address] Ronald Mills MD [address] [place] [address] documented as of this encounter [...] as of this encounter Care Teams Oracle Database Architect Relationship Specialty Start Date End Date Caitlyn Bowie MD [address] [address] PCP - General Internal Medicine 05/06/21 documented as of this encounter
--- OUTSIDE RECORDS SUMMARY | 2024-10-17 18:14 | XMS_ITS | Encounter Summary ---
Author Organization [facility] Address [address] [place] [address] Care Team Providers Care Drafter Civil Name Role Phone Caitlyn Bowie MD Primary Care Provider +1- [phone] Encounter Details Date Type Department Care Team (Late st Contact Info) Description 09/23/2024 Scanned Document INTERFACE DEFAULT [address] [place] [address] System, Provider Not In Social History Tobacco [...] 10/18/2024 10:30 AM EDT Office Visit [facility] [address] [place] [address] Alfredo Michaud Jr., PA [address] [place] [address] [place] [address] 10/31/2024 1:00 PM EDT [facility] Visit [facility] at [address] - [address] [facility] [place] [address] Ronald Mills MD 240 [facility] Max [address]1 [place] [address] documented as of this encounter Procedures Procedure Name Priority Date/Time Associated Diagnosis Comments LAB SCAN 09/23/2024 12:00 AM EDT LAB SCAN 09/23/2024 12:00 AM EDT documented in this encounter Results * Lab Scan (09/23/2024 12:00 AM EDT) us Provider Not In System LAB BLOOD ORDERABLES Carmina l Result * Lab Scan (09/23/2024 12:00 AM EDT) us Provider Not In System LAB BLOOD ORDERABLES Carmina l Result documented in this encounter Visit Diagnoses Not on filedocumented in this encounter Additional Health Concerns Assessment Noted Time PHQ-9 Depression Total Score: 2 11/07/19 19 2:06 PM EDT documented as of this encounter Care Teams Drafter Civil Relationship Specialty Start Date End Date Caitlyn Bowie MD [address] [address] PCP - General Internal Medicine 05/06/21 documented as of this encounter
--- OUTSIDE RECORDS SUMMARY | 2024-10-17 18:14 | XMS_ITS | Encounter Summary ---
Author Organization [facility] and [facility] Address [address] [place] [address] Care Team Providers Care Metal Sash Setter Name Role Phone Caitlyn Bowie MD Primary Care Provider +1- [phone] Encounter Details Date Type Department Care Team (Late st Contact Info) Description 11/04/2015 Scanned Document [facility] Health Information Management [address] [place] [address] External, Provider Social History Tobacco Use Types [...] Description 10/18/2024 10:30 AM EDT Office Visit [facility] [address] [place] [address] Alfredo Michaud Jr., EMELIA [address] [place] [address] [place] [address] 10/31/2024 1:00 PM EDT Office Visit Hematology Program at [address] - [address] [place] [address] Ronald Mills MD 240 [facility] Max A1 [place] [address] documented as of this encounter Procedures Procedure Name Priority Date/Time Associated Diagnosis Comments NUC MED/PET RESULT SCAN Routine 11/04/2015 documented in this encounter Results * Nuc Med/PET Result Scan (11/04/2015) us Provider External IMG SCAN REPORTS Edited Result - Final Performing Organization Address City/State/[facility] Co de Phone Number [facility] [place], [place], [facility] documented in this encounter Visit Diagnoses Not on filedocumented in this encounter Additional Health Concerns Infection Onset Date Last Indicated Resolved Time COVID-19 03/05/2022 03/05/2022 03/15/2022 7:18 PM EDT documented as of this encounter Care Teams Metal Sash Setter Relationship Specialty Start Date End Date Caitlyn Bowie MD 3400 [facility] 1 [place] [address] PCP - General Internal Medicine 05/06/21 Henry Kelly MD Pulmonary Department 175 [facility], [address] [place] [address] Physician Pulmonary Disease 09/06/17 06/22/20 documented as of this encounter
--- OUTSIDE RECORDS SUMMARY | 2024-10-17 18:14 | XMS_ITS | Encounter Summary ---
Author Organization [facility] and [facility] Address [address] [place] [address] Care Team Providers Care Dermatology Technician Name Role Phone Caitlyn Bowie MD Primary Care Provider +1- [phone] Encounter Details Date Type Department Care Team (Late st Contact Info) Description 04/23/2024 Scanned Document INTERFACE DEFAULT [address] [place] [address] System, Provider Not In Social History Tobacco [...] Description 10/18/2024 10:30 AM EDT Office Visit [facility] [address] [place] [address] Alfredo Michaud Jr., PA [address] [place] [address] [place] [address] 10/31/2024 1:00 PM EDT [facility] Visit [facility] at [address] - [address] [facility] [place] [address] Ronald Mills MD 240 [facility] Max A1 [place] [address] documented as of this encounter [...] as of this encounter Care Teams Dermatology Technician Relationship Specialty Start Date End Date Caitlyn Bowie MD [address] [address] PCP - General Internal Medicine 05/06/21 documented as of this encounter
--- OUTSIDE RECORDS SUMMARY | 2024-10-17 18:14 | XMS_ITS | Encounter Summary ---
Author Organization [facility] and [facility] Address [address] [place] [address] Care Team Providers Care Uc Architect Name Role Phone Caitlyn Bowie MD Primary Care Provider +1- [phone] Encounter Details Date Type Department Care Team (Late st Contact Info) Description 04/08/2024 Scanned Document INTERFACE DEFAULT [address] [place] [address] System, Provider Not In Social History Tobacco [...] Description 10/18/2024 10:30 AM EDT Office Visit [facility] [address] [place] [address] Alfredo Michaud Jr., PA [address] [place] [address] [place] [address] 10/31/2024 1:00 PM EDT [facility] [address] - [address] [place] [address] [facility] [place] [address] Ronald Mills MD [address] [facility] [address] [place] [address] documented as of this encounter [...] documented as of this encounter Care Teams Uc Architect Relationship Specialty Start Date End Date Caitlyn Bowie MD [address] [address] PCP - General Internal Medicine 05/06/21 documented as of this encounter
--- OUTSIDE RECORDS SUMMARY | 2024-10-17 18:14 | XMS_ITS | Encounter Summary ---
Author Organization [facility] Address [address] [place] [address] Care Team Providers Care Rn Integrity Name Role Phone Caitlyn Bowie MD Primary Care Provider +1- [phone] Encounter Details Date Type Department Care Team (Late st Contact Info) Description 03/20/2023 Scanned Document [facility] Radiology [address] [place] [address] Caitlyn Bowie MD [address] [place] [address] Social History Tobacco Use Types Packs/Day Years [...] on filedocumented in this encounter Care Teams Rn Integrity Relationship Specialty Start Date End Date Caitlyn Bowie MD [address] [place] [address] PCP - General Internal Medicine 03/20/23 documented as of this encounter
--- OUTSIDE RECORDS SUMMARY | 2024-10-17 18:14 | XMS_ITS | Encounter Summary ---
Author Organization [facility] Address [address] [place] [address] Care Team Providers Care End Worker Name Role Phone Caitlyn Bowie MD Primary Care Provider +1- [phone] Encounter Details Date Type Department Care Team (Late st Contact Info) Description 04/11/2019 Scanned Document [facility] Health Information Management [address] [place] [address] External, Provider Social History Tobacco Use Types [...] Office Visit [facility] [address] [place] [address] Alfredo Michaud Jr., PA [address] [place] [address] [place] [address] 10/31/2024 1:00 PM EDT [facility] [address] - NP[address] [place] [address] [facility] [place] [address] Ronald Mills MD [address] [place] [address] documented as of this encounter [...] documented as of this encounter Care Teams End Worker Relationship Specialty Start Date End Date Caitlyn Bowie MD 3400 [facility] 1 [place] [address] PCP - General Internal Medicine 05/06/21 Henry Kelly MD Pulmonary Department [address] [place] [address], [address] [place] [address] Physician Pulmonary Disease 09/06/17 06/22/20 documented as of this encounter
--- OUTSIDE RECORDS SUMMARY | 2024-10-17 18:14 | XMS_ITS | Encounter Summary ---
Author Organization [facility] and [facility] Address [address] [place] [address] Care Team Providers Care Data Processing Systems Consultant Name Role Phone Caitlyn Bowie MD Primary Care Provider +1- [phone] Encounter Details Date Type Department Care Team (Late st Contact Info) Description 04/18/2022 Scanned Document INTERFACE DEFAULT [address] [place] [address] System, Provider Not In Social History Tobacco [...] Description 10/18/2024 10:30 AM EDT Office Visit [facility] [address] [place] [address] Alfredo Michaud Jr., PA [address] [place] [address] [place] [address] 10/31/2024 1:00 PM EDT [facility] [address] - NP[address] [place] [address] [facility] [place] [address] Ronald Mills MD 240 [facility] [address] [place] [address] documented as of this encounter Visit Diagnoses Not on filedocumented in this encounter Additional Health Concerns Assessment Noted Time PHQ-9 Depression Total Score: 2 11/07/19 19 2:06 PM EDT documented as of this encounter Care Teams Data Processing Systems Consultant Relationship Specialty Start Date End Date Caitlyn Bowie MD [address] [address] PCP - General Internal Medicine 05/06/21 documented as of this encounter
--- OUTSIDE RECORDS SUMMARY | 2024-10-17 18:14 | XMS_ITS | Encounter Summary ---
Author Organization [facility] and [facility] Address [address] [place] [phone] Care Team Providers Care Certified Pesticide Applicator Name Role Phone Caitlyn Bowie MD Primary Care Provider +1- [phone] Encounter Details Date Type Department Care Team (Late st Contact Info) Description 01/28/2019 Scanned Document Cardiovascular Medicine at [address] [place] [address] Cristian Arreguin MBBS [address] [place] [address] Social History Tobacco Use Types [...] EDT Office Visit [facility] [address] [place] [address] Alfredo Michaud Jr., PA [address] [place] [address] [place] [address] 10/31/2024 1:00 PM EDT [facility] [address] - NP[address] [facility] [place] [address] Ronald Mills MD 240 [facility] [address] [place] [address] documented as of this encounter Visit Diagnoses Not on filedocumented in this encounter Additional Health Concerns Infection Onset Date Last Indicated Resolved Time COVID-19 03/05/2022 03/05/2022 03/15/2022 7:18 PM EDT Assessment Noted Time PHQ-9 Depression Total Score: 2 11/07/19 19 2:06 PM EDT documented as of this encounter Care Teams Certified Pesticide Applicator Relationship Specialty Start Date End Date Caitlyn Bowie MD 3400 [facility] 1 [place] [address] PCP - General Internal Medicine 05/06/21 Henry Kelly MD Pulmonary Department 175 [facility], [address] [place] [address] Physician Pulmonary Disease 09/06/17 06/22/20 documented as of this encounter
--- OUTSIDE RECORDS SUMMARY | 2024-10-17 18:14 | XMS_ITS | Encounter Summary ---
Author Organization [facility] Address [address] [place] [address] Phone Care Team Providers Care Chipper Name Role Phone Caitlyn Bowie MD Primary Care Provider +1- [phone] Encounter Details Date Type Department Care Team (Late st Contact Info) Description 10/01/2024 Documentation Only [facility] [address] [place] [address] Kendra TaylorGalien, [place] [address] [place] [address] Social History Tobacco Use Types [...] Visit [facility] [address] [place] [address] Rubén Ashraf MD [address] [facility] [place] [address] documented as of this encounter Visit Diagnoses Not on filedocumented in this encounter Care Teams Chipper Relationship Specialty Start Date End Date Caitlyn Bowie MD [address] [place], [place] PCP - General Internal Medicine 09/24/24 documented as of this encounter
--- OUTSIDE RECORDS SUMMARY | 2024-10-17 18:14 | XMS_ITS | Encounter Summary ---
Author Organization [facility] and [facility] Address [address] [place] [address] Care Team Providers Care Counter Control Operator Name Role Phone Caitlyn Bowie MD Primary Care Provider +1- [phone] Encounter Details Date Type Department Care Team (Late st Contact Info) Description 12/27/2018 Scanned Document [facility] Health Information Management [address] [place] [address] External, Provider Social History Tobacco Use Types [...] Description 10/18/2024 10:30 AM EDT Office Visit [facility] [address] [place] [address] Alfredo Michaud Jr., PA [address] [place] [address] [place] [address] 10/31/2024 1:00 PM EDT [facility] [address] - NP[address] [place] [address] [place] [address] Ronald Mills MD 240 [facility] [address] [place] [address] documented as of this encounter [...] as of this encounter Care Teams Counter Control Operator Relationship Specialty Start Date End Date Caitlyn Bowie MD 3400 [facility] 1 [place] [address] PCP - General Internal Medicine 05/06/21 Henry Kelly MD Pulmonary Department [address] [place] [address], [address] [place] [address] Physician Pulmonary Disease 09/06/17 06/22/20 documented as of this encounter
--- OUTSIDE RECORDS SUMMARY | 2024-10-17 18:14 | XMS_ITS | Encounter Summary ---
Author Organization [facility] and [facility] Address [address] [place] [address] Care Team Providers Care Salesperson Stereo Equipment Name Role Phone Caitlyn Bowie MD Primary Care Provider +1- [phone] Encounter Details Date Type Department Care Team (Late st Contact Info) Description 01/26/2019 Scanned Document [facility] Health Information Management [address] [place] [address] External, Provider Social History Tobacco Use Types [...] Description 10/18/2024 10:30 AM EDT Office Visit [facility] [address] [place] [address] Alfredo Michaud Jr., PA [address] [place] [address] [place] [address] 10/31/2024 1:00 PM EDT Office Visit [facility] [address] - [address] [facility] [place] [address] Ronald Mills MD 240 [facility] [address] [place] [address] documented as of this encounter [...] as of this encounter Care Teams Salesperson Stereo Equipment Relationship Specialty Start Date End Date Caitlyn Bowie MD 3400 [facility] 1 [place] [address] PCP - General Internal Medicine 05/06/21 Henry Kelly MD Pulmonary Department 175 [facility], [address] [place] [address] Physician Pulmonary Disease 09/06/17 06/22/20 documented as of this encounter
--- OUTSIDE RECORDS SUMMARY | 2024-10-17 18:14 | XMS_ITS | Encounter Summary ---
Author Organization [facility] Address [address] [place] [address] Care Team Providers Care Curb And Gutter Laborer Name Role Phone Caitlyn Bowie MD Primary Care Provider +1- [phone] Encounter Details Date Type Department Care Team (Late st Contact Info) Description 01/09/2019 Scanned Document [facility] Health Information Management [address] [place] [address] External, Provider Social History Tobacco Use Types [...] Description 10/18/2024 10:30 AM EDT Office Visit [facility] [address] [place] [address] Alfredo Michaud Jr., PA [address] [place] [address] [place] [address] 10/31/2024 1:00 PM EDT [facility] Visit [facility] [address] - [address] [place] [address] [facility] [place] [address] Ronald Mills MD 240 [facility] [address] [place] [address] documented as [...] as of this encounter Care Teams Curb And Gutter Laborer Relationship Specialty Start Date End Date Caitlyn Bowie MD 3400 [facility] 1 [place] [address] PCP - General Internal Medicine 05/06/21 Henry Kelly MD Pulmonary Department [address] [place] [address], [address] [place] [address] Physician Pulmonary Disease 09/06/17 06/22/20 documented as of this encounter
--- OUTSIDE RECORDS SUMMARY | 2024-10-17 18:14 | XMS_ITS | Encounter Summary ---
Author Organization [facility] Address [address] [place] [address] Care Team Providers Care Well Control Instructor Name Role Phone Caitlyn Bowie MD Primary Care Provider +1- [phone] Encounter Details Date Type Department Care Team (Late st Contact Info) Description 12/16/2015 Scanned Document [facility] Health Information Management [address] [place] [address] External, Provider Social History Tobacco Use Types [...] Description 10/18/2024 10:30 AM EDT Office Visit [facility] [address] [place] [address] Alfredo Michaud Jr., EMELIA [address] [place] [address] [place] [address] 10/31/2024 1:00 PM EDT Office Visit H[facility]ology Program at [address] - [address] [place] [address] Ronald Mills MD [address] [place] [address] documented as of this encounter Procedures Procedure Name Priority Date/Time Associated Diagnosis Comments US RESULT SCAN Routine 12/16/2015 documented in this encounter Results * US Result Scan (12/16/2015) us Provider External IMG SCAN REPORTS Edited Result - Final Performing Organization Address City/State/[facility] Co de Phone Number [facility] documented in this encounter Visit Diagnoses Not on filedocumented in this encounter Additional Health Concerns Infection Onset Date Last Indicated Resolved Time COVID-19 03/05/2022 03/05/2022 03/15/2022 7:18 PM EDT documented as of this encounter Care Teams Well Control Instructor Relationship Specialty Start Date End Date Caitlyn Bowie MD 3400 [facility] 1 [place] [address] PCP - General Internal Medicine 05/06/21 Henry Kelly MD Pulmonary Department 175 [facility], [address] [place] [address] Physician Pulmonary Disease 09/06/17 06/22/20 documented as of this encounter
--- OUTSIDE RECORDS SUMMARY | 2024-10-17 18:14 | XMS_ITS | Encounter Summary ---
Author Organization [facility] and [facility] Address [address] [place] [address] Care Team Providers Care Menhaden Vessel Pilot Name Role Phone Caitlyn Bowie MD Primary Care Provider +1- [phone] Encounter Details Date Type Department Care Team (Late st Contact Info) Description 09/09/2024 Scanned Document INTERFACE DEFAULT [address] [place] [address] System, Provider Not In Social History Tobacco [...] Description 10/18/2024 10:30 AM EDT Office Visit [facility] [address] [place] [address] Alfredo Michaud Jr., PA [address] [place] [address] [place] [address] 10/31/2024 1:00 PM EDT [facility] Visit [facility] [address] - [address] [facility] [place] [facility] [place] [address] Ronald Mills MD 240 [facility] [address] [place] [address] documented as of this encounter Procedures Procedure Name Priority Date/Time Associated Diagnosis Comments LAB SCAN 09/09/2024 12:00 AM EST LAB SCAN 09/09/2024 12:00 AM EST documented in this encounter Results * Lab Scan (09/09/2024 12:00 AM EST) us Provider Not In System LAB BLOOD ORDERABLES Carmina l Result * Lab Scan (09/09/2024 12:00 AM EST) us Provider Not In System LAB BLOOD ORDERABLES Carmina l Result documented in this encounter Visit Diagnoses Not on filedocumented in this encounter Additional Health Concerns Assessment Noted Time PHQ-9 Depression Total Score: 2 11/07/19 19 2:06 PM EDT documented as of this encounter Care Teams Menhaden Vessel Pilot Relationship Specialty Start Date End Date Caitlyn Bowie MD [address] [address] PCP - General Internal Medicine 05/06/21 documented as of this encounter
--- OUTSIDE RECORDS SUMMARY | 2024-10-17 18:14 | XMS_ITS | Clinical Summary ---
Author Organization [facility] Address [address] [place] [address] Phone Care Team Providers Care Armor Reconnaissance Specialist Name Role Phone Caitlyn Bowie MD Primary Care Provider +1- [phone] Encounters Date Type Department Care Team Description 10/10/2024 Documentation Only [facility] [address] [place] [address] Ron Taylor MA 10/01/2024 Documentation Only [facility] [address] [place] [address] Ron Taylor MA 09/25/2024 Telephone [facility] [address] [place] [address] Ron Taylor MA from Last 3 Months Social History Tobacco Use Types Packs/Day Years Used Date Smoking Tobacco: Never Assessed Comments Unknown Sex and Gender Information Value Date Recorded Sex Assigned at Not on file Legal Sex Female 2:00 PM EDT Gender Identity Not on file Sexual Orientation Not on file Plan of Treatment Upcoming Encounters Date Type Department Care Team (Late st Contact Info) Description 12/27/2024 2:30 PM EDT Office Visit [facility] [address] [place] [address] Rubén Ashraf MD [address] [place] [address] [place] [phone] Health Maintenance Due Date Last Done Comments Influenza Vaccine (Season Ended) 2025 04/27/2020, 04/22/2019, 04/18/2016 Pneumococcal Vaccine: 50+ Years Completed 08/31/2021, 03/25/2016, 09/17/2015, Additional history exists Hepatitis B Vaccine Aged Out No longe r eligible based on patient's age to complete this topic Insurance Medicare [facility] Care Teams Armor Reconnaissance Specialist Relationship Specialty Start Date End Date Caitlyn Bowie MD [facility] [place], [place] PCP - General Internal Medicine 09/24/24
--- OUTSIDE RECORDS SUMMARY | 2024-10-17 18:14 | XMS_ITS | Encounter Summary ---
Author Organization [facility] Address [address] [place] [address] Care Team Providers Care Swaging Machine Operator Name Role Phone Caitlyn Bowie MD Primary Care Provider +1- [phone] Encounter Details Date Type Department Care Team (Latest Contact Info) Description 12/25/2015 Transcribed Orders [facility] [address] [facility] [place] [address] Osmel Briscoe MD Other abnormality of red [...] Description 10/18/2024 10:30 AM EDT Office Visit [facility] [address] [place] [address] Alfredo Michaud Jr., PA [address] [place] [address] [place] [address] 10/31/2024 1:00 PM EDT [facility] Visit [facility] [address] - [address] [facility] [place] [address] Ronald Mills MD [address] [place] [address] documented as of this encounter Results * Free kappa lambda with ratio, serum ( GH Q YH) (12/25/2015 10:09 AM EDT) Pathologist [facility] Ig [place] Free Light Chain 1.84 0.33 - 1.94 mg/dL [facility] Ig Lambda Free Light Chain 1.96 0.57 - 2.63 mg/dL [facility] [place]/Lambda FLC Ratio 0.94 0.26 - 1.65 [facility] Blood specimen (specimen) 12/25/2015 10:09 AM EDT Osmel Briscoe MD LAB BLOOD ORDERABLES Final R esult Performing Organization Address City/[facility]/ZIP Co de Phone Number [facility] [address] [place] [address] * Immunofixation, serum (GH L Q YH) (12/25/2015 10:09 AM EDT) Pathologist [facility] Immunofixation Electrophoresis Gel See below See Interp. [facility] Comment: INTERPRETATION: Normal immunofixation electrophoresis. No evidence of a serum monoclonal component. SIGNED BY:Keyur KAYE MD ON 12/29/2015 14:56:04 INTERPRETATION REVIEW : I have reviewed these results and agree with this interpretation. Blood specimen (specimen) 12/25/2015 10:09 AM EDT us Osmel Briscoe MD LAB BLOOD ORDERABLES Final R esult Performing Organization Address City/[facility]/ZIP Co de Phone Number [facility] [address] [place] [address] * (ABNORMAL) Protein electrophoresis, serum (BH GH L YH) (12/25/2015 10:09 AM EDT) Albumin Electrophoresis 3.45(L) 3.50 - 4.70 g/dL [facility] Lnkpe-6-Nmqcvxjo 0.16 0.10 - 0.30 g/dL [facility] Dgcuc-1-Nrnvavwq 0.81 0.60 - 1.00 g/dL [facility] Beta Globulin 0.86 0.70 - 1.20 g/dL [facility] Gamma Globulin 0.92 0.70 - 1.50 g/dL [facility] SPEP Interpretation See below See Interp. [facility] Comment: INTERPRETATION: No discrete abnormal bands. [...] ORDERABLES Final R esult Performing Organization Address City/[facility] Co de Phone Number [facility] [address] [place] [address] * Reticulocytes (GH L Q YH) (12/25/2015 10:09 AM EDT) Reticulocyte Count 2.1 0.6 - 2.7 % [facility] Blood specimen (specimen) 12/25/2015 10:09 AM EDT Osmel Briscoe MD LAB BLOOD ORDERABLES Final R esult Performing Organization Address City/State/[facility] Co de Phone Number [facility] [address] [place] [address] * (ABNORMAL) Sedimentation rate (ESR) (12/25/2015 10:09 AM EDT) Pathologist [facility] Sed Rate 27(H) 0 - 20 mm/hr [facility] Blood specimen (specimen) 12/25/2015 10:09 AM EDT Osmel Briscoe MD LAB BLOOD ORDERABLES Final R esult Performing Organization Address [facility] Co de Phone Number [facility] [address] [place] [address] * Ferritin (12/25/2015 10:09 AM EDT) [facility] Ferritin 68 9 - 120 ng/mL [facility] Blood specimen (specimen) 12/25/2015 10:09 AM EDT Osmel Briscoe MD LAB BLOOD ORDERABLES Final R esult Performing Organization Address [facility] Co de Phone Number [facility] [address] [place] [address] * Iron and TIBC (12/25/2015 10:09 AM EDT) [facility] Iron 110 50 - 170 ug/dL [facility] TIBC 290 250 - 450 ug/dL [facility] Iron Saturation 38 15 - 50 [facility] Blood specimen (specimen) 12/25/2015 10:09 AM EDT Osmel Briscoe MD LAB BLOOD ORDERABLES Final R esult Performing Organization Address [facility] Co de Phone Number [facility] [address] [place] [address] * Vitamin D 25 hydroxy (BH L YH) (12/25/2015 10:09 AM EDT) Vit D, 25-Hydroxy 43 20 - 50 ng/mL [facility] Comment: A serum 25(OH) vitamin D [...] ORDERABLES Final R esult Performing Organization Address [facility] Co de Phone Number [facility] [address] [place] [address] * TSH ( L Y) (12/25/2015 10:09 AM EDT) [facility] TSH cancelled 0.3 - 4.2 uU/mL [facility] TSH 1.62 0.3 - 4.2 uU/mL [facility] Comment:This test is a third generation TSH assay. Blood specimen (specimen) 12/25/2015 10:09 AM EDT Osmel Briscoe MD LAB BLOOD ORDERABLES Final R esult Performing Organization Address [facility] Co de Phone Number [facility] [address] [place] [address] * (ABNORMAL) CBC and differential (12/25/2015 10:09 AM EDT) [facility] CBC with Differential See Below [facility] WBC 9.9 4.0 - 10.0 x 1000/uL [facility] RBC 4.0 3.8 - 5.2 M/uL [facility] Hemoglobin 13.4 12.0 - 16.0 g/dL [facility] Hematocrit 41.0 37.0 - 47.0 % [facility] MCV 101(H) 78 - 94 fL [facility] MCH 33.2(H) 27.0 - 33.0 pg [facility] MCHC 32.8(L) 33.0 - 37.0 g/dL [facility] RDW 12.5 10.8 - 14.5 % [facility] Platelets 265 150 - 350 x 1000/uL [facility] MPV 7.2 6.0 - 10.0 fL [facility] Neutrophils 82(H) 38 - 71 % [facility] Lymphocytes 7(L) 14 - 46 % [facility] Monocytes 10 2 - 15 % [facility] Eosinophils 1 0 - 5 % [facility] Basophils 0 0 - 2 % [facility] ANC (Abs Neutrophil Count) 8.1 1.0 - 9.0 x 1000/uL [facility] Absolute Lymphocyte Count 0.7 0.6 - 4.6 x 1000/uL [facility] Blood specimen (specimen) ARM NEC / Unknown 12/25/2015 10:09 AM EDT us Osmel Briscoe MD LAB BLOOD ORDERABLES Final R esult [facility] [address] [place] [address] documented in this encounter Visit Diagnoses Diagnosis [...] documented as of this encounter Care Teams Swaging Machine Operator Relationship Specialty Start Date End Date Caitlyn Bowie MD [address] [address] PCP - General Internal Medicine 05/06/21 Henry Kelly MD Pulmonary Department [address] [facility], [address] [place] [address] Physician Pulmonary Disease 09/06/17 06/22/20 documented as of this encounter
--- OUTSIDE RECORDS SUMMARY | 2024-10-17 18:14 | XMS_ITS | Encounter Summary ---
Author Organization [facility] Address [address] [place] [address] Care Team Providers Care Dispatcher Street Department Name Role Phone Caitlyn Bowie MD Primary Care Provider +1- [phone] Encounter Details Date Type Department Care Team (Late st Contact Info) Description 02/06/2019 Scanned Document [facility] Health Information Management [address] [place] [address] External, Provider Social History Tobacco Use Types [...] Description 10/18/2024 10:30 AM EDT Office Visit [facility] [address] [place] [address] Alfredo Michaud Jr., PA [address] [place] [address] [place] [address] 10/31/2024 1:00 PM EDT [facility] Visit [facility] at [address] - NP[address] [place] [address] [facility] [place] [address] Ronald Mills MD [address] [place] [address] documented as of this encounter [...] documented as of this encounter Care Teams Dispatcher Street Department Relationship Specialty Start Date End Date Caitlyn Bowie MD [address] [facility] 1 [place] [address] PCP - General Internal Medicine 05/06/21 Henry Kelly MD Pulmonary Department [address] [place] [address], [address] [place] [address] Physician Pulmonary Disease 09/06/17 06/22/20 documented as of this encounter
--- OUTSIDE RECORDS SUMMARY | 2024-10-17 18:14 | XMS_ITS | Encounter Summary ---
Author Organization [facility] and [facility] Address [address] [place] [address] Care Team Providers Care Culture Room Worker Name Role Phone Caitlyn Bowie MD Primary Care Provider +1- [phone] Encounter Details Date Type Department Care Team (Late st Contact Info) Description 08/08/2024 Scanned Document INTERFACE DEFAULT [address] [place] [address] System, Provider Not In Social History Tobacco [...] EDT Office Visit [facility] [address] [place] [address] Alfredo Michaud Jr., PA [address] [place] [address] [place] [address] 10/31/2024 1:00 PM EDT Office Visit [facility] at [address] - [address] [facility] [place] [address] Ronald Mills MD [address] [facility] [address] [place] [address] documented as of this encounter Procedures Procedure Name Priority Date/Time Associated Diagnosis Comments LAB SCAN 08/08/2024 12:00 AM EST LAB SCAN 08/08/2024 12:00 AM EST documented in this encounter Results * Lab Scan (08/08/2024 12:00 AM EST) us Provider Not In System LAB BLOOD ORDERABLES Carmina l Result * Lab Scan (08/08/2024 12:00 AM EST) us Provider Not In System LAB BLOOD ORDERABLES Carmina l Result documented in this encounter Visit Diagnoses Not on filedocumented in this encounter Additional Health Concerns Assessment Noted Time PHQ-9 Depression Total Score: 2 11/07/19 19 2:06 PM EDT documented as of this encounter Care Teams Culture Room Worker Relationship Specialty Start Date End Date Caitlyn Bowie MD [address] [address] PCP - General Internal Medicine 05/06/21 documented as of this encounter
--- OUTSIDE RECORDS SUMMARY | 2024-10-17 18:14 | XMS_ITS | Encounter Summary ---
Author Organization [facility] and [facility] Address [address] [place] [address] Care Team Providers Care General Manager Farm Name Role Phone Caitlyn Bowie MD Primary Care Provider +1- [phone] Encounter Details Date Type Department Care Team (Late st Contact Info) Description 01/08/2019 Scanned Document [facility] Health Information Management [address] [place] [address] External, Provider Social History Tobacco Use Types [...] 10/18/2024 10:30 AM EDT Office Visit [facility] [address] [place] [address] Alfredo Michaud Jr., PA [address] [place] [address] [place] [address] 10/31/2024 1:00 PM EDT Office Visit [facility] at [address] - [address] [place] [address] [facility] [place] [address] Ronald Mills MD [address] [place] [address] documented as of this encounter [...] as of this encounter Care Teams General Manager Farm Relationship Specialty Start Date End Date Caitlyn Bowie MD 3400 [facility] 1 [place] [address] PCP - General Internal Medicine 05/06/21 Henry Kelly MD Pulmonary Department [address] [place] [address], [address] [place] [address] Physician Pulmonary Disease 09/06/17 06/22/20 documented as of this encounter
--- OUTSIDE RECORDS SUMMARY | 2024-10-17 18:14 | XMS_ITS | Encounter Summary ---
Author Organization [facility] Address [address] [place] [address] Care Team Providers Care Mold Maker Name Role Phone Caitlyn Bowie MD Primary Care Provider +1- [phone] Encounter Details Date Type Department Care Team (Late st Contact Info) Description 04/19/2024 Scanned Document INTERFACE DEFAULT [address] [place] [address] System, Provider Not In Social History Tobacco [...] Description 10/18/2024 10:30 AM EDT Office Visit [facility] [address] [place] [address] Alfredo Michaud Jr., PA [address] [place] [address] [place] [address] 10/31/2024 1:00 PM EDT Office Visit [facility] at [address] - [address] [facility] [place] [address] Ronald Mills MD 240 [facility] [address] [place] [address] documented as of this encounter [...] as of this encounter Care Teams Mold Maker Relationship Specialty Start Date End Date Caitlyn Bowie MD [address] [address] PCP - General Internal Medicine 05/06/21 documented as of this encounter
--- OUTSIDE RECORDS SUMMARY | 2024-10-17 18:14 | XMS_ITS | Encounter Summary ---
Author Organization [facility] and [facility] Address [address] [place] [address] Care Team Providers Care Load Tester Name Role Phone Caitlyn Bowie MD Primary Care Provider +1- [phone] Encounter Details Date Type Department Care Team (Late st Contact Info) Description 04/12/2022 Scanned Document INTERFACE DEFAULT [address] [place] [address] System, Provider Not In Social History Tobacco [...] Description 10/18/2024 10:30 AM EDT Office Visit [facility] [address] [place] [address] Alfredo Michaud Jr., PA [address] [place] [address] [place] [address] 10/31/2024 1:00 PM EDT Office Visit [facility] at [address] - [address] [facility] [place] [facility] [place] [address] Ronald Mills MD 240 [facility] [address] [place] [address] documented as of this encounter [...] documented as of this encounter Care Teams Load Tester Relationship Specialty Start Date End Date Caitlyn Bowie MD [address] [address] PCP - General Internal Medicine 05/06/21 documented as of this encounter
--- OUTSIDE RECORDS SUMMARY | 2024-10-17 18:14 | XMS_ITS | Encounter Summary ---
Author Organization [facility] and [facility] Address [address] [place] [address] Care Team Providers Care Chiropractic Assistant Name Role Phone Caitlyn Bowie MD Primary Care Provider +1- [phone] Encounter Details Date Type Department Care Team (Late st Contact Info) Description 06/17/2016 Scanned Document [facility] Health Information Management [address] [place] [address] External, Provider Social History Tobacco Use Types [...] Description 10/18/2024 10:30 AM EDT Office Visit [facility] [address] [place] [address] Alfredo Michaud Jr., EMELIA [address] [place] [address] [place] [address] 10/31/2024 1:00 PM EDT Office Visit Hematology Program at [address] - [address] [place] [address] Ronald Mills MD 240 [facility] [address] [place] [address] documented as of this encounter Visit Diagnoses Not on filedocumented in this encounter Additional Health Concerns Infection Onset Date Last Indicated Resolved Time COVID-19 03/05/2022 03/05/2022 03/15/2022 7:18 PM EDT documented as of this encounter Care Teams Chiropractic Assistant Relationship Specialty Start Date End Date Caitlyn Bowie MD 3400 [facility] 1 [place] [address] PCP - General Internal Medicine 05/06/21 Henry Kelly MD Pulmonary Department [address] [place] [address], [address] [place] [address] Physician Pulmonary Disease 09/06/17 06/22/20 documented as of this encounter
--- OUTSIDE RECORDS SUMMARY | 2024-10-17 18:14 | XMS_ITS | Encounter Summary ---
Author Organization [facility] and [facility] Address [address] [place] [address] Care Team Providers Care Wire Coater Name Role Phone Caitlyn Bowie MD Primary Care Provider +1- [phone] Encounter Details Date Type Department Care Team (Late Contact Info) Description 03/02/2022 Scanned Document [facility] Health Information Management [address] [place] [address] External, Provider Social History Tobacco Use Types [...] Description 10/18/2024 10:30 AM EDT Office Visit [facility] [address] [place] [address] Alfredo Michaud Jr., PA [address] [place] [address] [place] [address] 10/31/2024 1:00 PM EDT Office Visit [facility] at [address] - NP[address] [facility] [place] [address] Ronald Mills MD 240 [facility] [address]1 [place] [address] documented as of this encounter Visit Diagnoses Not on filedocumented in this encounter Additional Health Concerns Infection Onset Date Last Indicated Resolved Time COVID-19 03/05/2022 03/05/2022 03/15/2022 7:18 PM EDT Assessment Noted Time PHQ-9 Depression Total Score: 2 11/07/19 19 2:06 PM EDT documented as of this encounter Care Teams Wire Coater Relationship Specialty Start Date End Date Caitlyn Bowie MD [address] [address] PCP - General Internal Medicine 05/06/21 documented as of this encounter
--- OUTSIDE RECORDS SUMMARY | 2024-10-17 18:14 | XMS_ITS | Encounter Summary ---
Author Organization [facility] and [facility] Address [address] [place] [address] Care Team Providers Care Panelboard Assembler Name Role Phone Caitlyn Bowie MD Primary Care Provider +1- [phone] Encounter Details Date Type Department Care Team (Late st Contact Info) Description 12/01/2015 Scanned Document [facility] Health Information Management [address] [place] [address] External, Provider Social History Tobacco Use Types [...] Description 10/18/2024 10:30 AM EDT Office Visit [facility] [address] [place] [address] Alfredo Michaud Jr., EMELIA [address] [place] [address] [place] [address] 10/31/2024 1:00 PM EDT Office Visit Hematology Program at [address] - [address] [place] [address] Ronald Mills MD [address] [place] [address] documented as of this encounter Procedures Procedure Name Priority Date/Time Associated Diagnosis Comments CT RESULT SCAN Routine 12/01/2015 documented in this encounter Results * CT Result Scan (12/01/2015) us Provider External IMG SCAN REPORTS Edited Result - Final Performing Organization Address City/State/[facility] Co de Phone Number [facility] documented in this encounter Visit Diagnoses Not on filedocumented in this encounter Additional Health Concerns Infection Onset Date Last Indicated Resolved Time COVID-19 03/05/2022 03/05/2022 03/15/2022 7:18 PM EDT documented as of this encounter Care Teams Panelboard Assembler Relationship Specialty Start Date End Date Caitlyn Bowie MD 3400 [facility] 1 [address] PCP - General Internal Medicine 05/06/21 Henry Kelly MD Pulmonary Department 175 [facility], [address] [address] Physician Pulmonary Disease 09/06/17 06/22/20 documented as of this encounter
--- OUTSIDE RECORDS SUMMARY | 2024-10-17 18:14 | XMS_ITS | Encounter Summary ---
Author Organization [facility] and [facility] Address [address] [place] [address] Care Team Providers Care Physical Education Department Chair Name Role Phone Caitlyn Bowie MD Primary Care Provider +1- [phone] Encounter Details Date Type Department Care Team (Late st Contact Info) Description 01/28/2019 Scanned Document [facility] Health Information Management [address] [place] [address] External, Provider Social History Tobacco Use Types [...] Description 10/18/2024 10:30 AM EDT Office Visit [facility] [address] [place] [address] Alfredo Michaud Jr., PA [address] [place] [address] [place] [address] 10/31/2024 1:00 PM EDT Office Visit [facility] [address] - [address] [facility] [place] [address] Ronald Mills MD 240 [facility] A1 [place] [address] documented as of this encounter Visit Diagnoses Not on filedocumented in this encounter Additional Health Concerns Infection Onset Date Last Indicated Resolved Time COVID-19 03/05/2022 03/05/2022 03/15/2022 7:18 PM EDT Assessment Noted Time PHQ-9 Depression Total Score: 2 11/07/19 19 2:06 PM EDT documented as of this encounter Care Teams Physical Education Department Chair Relationship Specialty Start Date End Date Caitlyn Bowie MD 3400 [facility] 1 [place] [address] PCP - General Internal Medicine 05/06/21 Henry Kelly MD Pulmonary Department [address] [place] [address], [address] [place] [address] Physician Pulmonary Disease 09/06/17 06/22/20 documented as of this encounter
--- OUTSIDE RECORDS SUMMARY | 2024-10-17 18:14 | XMS_ITS | Encounter Summary ---
Author Organization [facility] and [facility] Address [address] [place] [address] Care Team Providers Care High Risk Case Manager Name Role Phone Caitlyn Bowie MD Primary Care Provider +1- [phone] Encounter Details Date Type Department Care Team (Late st Contact Info) Description 11/03/2015 Scanned Document [facility] Health Information Management [address] [place] [address] External, Provider Social History Tobacco Use Types [...] Description 10/18/2024 10:30 AM EDT Office Visit [facility] [address] [place] [address] Alfredo Michaud Jr., EMELIA [address] [place] [address] [place] [address] 10/31/2024 1:00 PM EDT Office Visit Hematology Program at [address] - [address] [place] [address] Ronald Mills MD [address] [place] [address] documented as of this encounter Procedures Procedure Name Priority Date/Time Associated Diagnosis Comments US RESULT SCAN Routine 11/03/2015 documented in this encounter Results * US Result Scan (11/03/2015) us Provider External IMG SCAN REPORTS Edited Result - Final Performing Organization Address City/State/[facility] Co de Phone Number [facility] documented in this encounter Visit Diagnoses Not on filedocumented in this encounter Additional Health Concerns Infection Onset Date Last Indicated Resolved Time COVID-19 03/05/2022 03/05/2022 03/15/2022 7:18 PM EDT documented as of this encounter Care Teams High Risk Case Manager Relationship Specialty Start Date End Date Caitlyn Bowie MD 3400 [facility] 1 [place] [address] PCP - General Internal Medicine 05/06/21 Henry Kelly MD Pulmonary Department [address] [facility], [address] [place] [address] Physician Pulmonary Disease 09/06/17 06/22/20 documented as of this encounter
--- OUTSIDE RECORDS SUMMARY | 2024-10-17 18:14 | XMS_ITS | Encounter Summary ---
Author Organization [facility] and [facility] Address [address] [place] [address] Care Team Providers Care Zoning Administrator Name Role Phone Caitlyn Bowie MD Primary Care Provider +1- [phone] Reason for Visit * Reason Comments Results Encounter Details Date Type Department Care Team (Late st Contact Info) Description 03/15/2022 Telephone [facility] at [address] [address] Ronald Mills MD [address] [place] [address] Results Social History Tobacco Use Types [...] Description 10/18/2024 10:30 AM EDT Office Visit [facility] [address] [place] [address] [address] [place] [phone] Alfredo Michaud Jr., PA [address] [place] [address] [place] [address] 10/31/2024 1:00 PM EDT Office Visit Hematology Program at [address] - [address] [address] Ronald Mills MD 240 [facility] A1 [place] [address] documented as of this encounter Visit Diagnoses Not on filedocumented in this encounter Additional Health Concerns Infection Onset Date Last Indicated Resolved Time COVID-19 03/05/2022 03/05/2022 03/15/2022 7:18 PM EDT Assessment Noted Time PHQ-9 Depression Total Score: 2 11/07/19 19 2:06 PM EDT documented as of this encounter Care Teams Zoning Administrator Relationship Specialty Start Date End Date Caitlyn Bowie MD [address] [address] PCP - General Internal Medicine 05/06/21 documented as of this encounter
--- OUTSIDE RECORDS SUMMARY | 2024-10-17 18:14 | XMS_ITS | Encounter Summary ---
Author Organization [facility] Address [address] [place] [address] Care Team Providers Care Shellac Polisher Name Role Phone Pcp, No Primary Care Provider Brennan Mario MD Primary Care Provider [phone] Caitlyn Bowie MD Primary Care Provider +1- [phone] Encounter Details Date Type Department Care Team (Late st Contact Info) Description 01/04/2022 Scanned Document [facility] Ophthalmology [address] [address] Yary Whitten DO [address] [place] [address] Social History Tobacco Use Types Packs/Day [...] on filedocumented in this encounter Care Teams Shellac Polisher Relationship Specialty Start Date End Date Pcp, No PCP - General General Medicine 10/04/21 07/18/22 Brennan [place]ett MD [address] [place] [address] PCP - General 07/19/22 03/19/23 Caitlyn Bowie MD [address]00 [place] [address] PCP - General Internal Medicine 03/20/23 documented as of this encounter
--- OUTSIDE RECORDS SUMMARY | 2024-10-17 18:14 | XMS_ITS | Encounter Summary ---
Author Organization [facility] Address [address] [place] [address] Care Team Providers Care Tooler Name Role Phone Cristofer Hope MD Primary Care Provider Victorino Read MD Primary Care Provider UnavailSharon Kimbrough Primary Care Provider Unava ilBrennan Newman MD Primary Care Provider Unavailab Hayden Montes MD Unavailable Pallavi Flood NP Unavailable +1- [phone] Caitlyn Bowie MD Primary Care Provider Unava chhaya Encounter Details Date Type Department Care Team Description 05/19/2017 Transfer Records Medical Records [address] [place] [address] Abstract, Provider Social History Tobacco Use Types [...] on filedocumented in this encounter Care Teams Tooler Relationship Specialty Start Date End Date Cristofer Hope MD PCP - General Internal Medicine 05/16/17 12/20/17 Victorino Martin MD PCP - General Internal Medicine 12/21/17 08/01/18 Sharon Vides PCP - General Internal Medicine 08/02/18 05/26/20 Brennan Burnett MD PCP - General Internal Medicine 05/27/20 12/07/21 Caitlyn Bowie MD [address] [place] [address] PCP - General Internal Medicine 12/08/21 Hayden Shah MD [address] [place], [place] [phone] Specialist Cardiovascular Disease 09/01/20 Pallavi Flood NP [address] [place], [place] [phone] Cardiology 09/01/20 documented as of this encounter
--- OUTSIDE RECORDS SUMMARY | 2024-10-17 18:14 | XMS_ITS | Encounter Summary ---
Author Organization [facility] Address [address] [place] [address] Care Team Providers Care International Logistics Coordinator Name Role Phone Caitlyn Bowie MD Primary Care Provider +1- [phone] Encounter Details Date Type Department Care Team (Late st Contact Info) Description 04/13/2022 Scanned Document INTERFACE DEFAULT [address] [place] [address] System, Provider Not In Social History Tobacco [...] Description 10/18/2024 10:30 AM EDT Office Visit [facility] [address] [place] [address] Alfredo Michaud Jr., PA [address] [place] [address] [place] [address] 10/31/2024 1:00 PM EDT Office Visit [facility] at [address] - [address] [facility] [place] [address] Ronald Mills MD 240 [facility] Max [address]1 [place] [address] documented as of this encounter [...] as of this encounter Care Teams International Logistics Coordinator Relationship Specialty Start Date End Date Caitlyn Bowie MD [address] [address] PCP - General Internal Medicine 05/06/21 documented as of this encounter
--- OUTSIDE RECORDS SUMMARY | 2024-10-17 18:14 | XMS_ITS | Encounter Summary ---
Author Organization [facility] and [facility] Address [address] [place] [address] Care Team Providers Care Chaperone Name Role Phone Caitlyn Bowie MD Primary Care Provider +1- [phone] Encounter Details Date Type Department Care Team (Late st Contact Info) Description 01/02/2019 Scanned Document [facility] Health Information Management [address] [place] [address] External, Provider Social History Tobacco Use Types [...] Description 10/18/2024 10:30 AM EDT Office Visit [facility] [address] [place] [address] Alfredo Michaud Jr., PA [address] [place] [address] [place] [address] 10/31/2024 1:00 PM EDT Office Visit [facility] at [address] - [address] [place] [address] [facility] [place] [address] Ronald Mills MD [address] [place] [address] documented as of this encounter [...] documented as of this encounter Care Teams Chaperone Relationship Specialty Start Date End Date Caitlyn Bowie MD 3400 [facility] 1 [place] [address] PCP - General Internal Medicine 05/06/21 Henry Kelly MD Pulmonary Department 175 [facility], [address] [place] [address] Physician Pulmonary Disease 09/06/17 06/22/20 documented as of this encounter
--- OUTSIDE RECORDS SUMMARY | 2024-10-17 18:14 | XMS_ITS | Encounter Summary ---
Author Organization [facility] Address [address] [place] [address] Care Team Providers Care Drywall Finisher Name Role Phone Caitlyn Bowie MD Primary Care Provider +1- [phone] Encounter Details Date Type Department Care Team (Late st Contact Info) Description 01/08/2022 Scanned Document INTERFACE DEFAULT [address] [place] [address] System, Provider Not In Social History Tobacco [...] Office Visit [facility] [address] [place] [address] Alfredo Michaud Jr., PA [address] [place] [address] [place] [address] 10/31/2024 1:00 PM EDT Office Visit [facility] at [address] - [address] [facility] [place] [address] Ronald Mills MD [address] [place] [address] documented as of this encounter [...] documented as of this encounter Care Teams Drywall Finisher Relationship Specialty Start Date End Date Caitlyn Bowie MD [address] [address] PCP - General Internal Medicine 05/06/21 documented as of this encounter
--- OUTSIDE RECORDS SUMMARY | 2024-10-17 18:14 | XMS_ITS | Encounter Summary ---
Author Organization [facility] and [facility] Address [address] [place] [address] Care Team Providers Care Processing Talc And Borate Supervisor Name Role Phone Caitlyn Bowie MD Primary Care Provider +1- [phone] Encounter Details Date Type Department Care Team (Late st Contact Info) Description 04/22/2019 Scanned Document [facility] Health Information Management [address] [place] [address] External, Provider Social History Tobacco Use Types [...] Description 10/18/2024 10:30 AM EDT Office Visit [facility] [address] [place] [address] Alfredo Michaud Jr., PA [address] [place] [address] [place] [address] 10/31/2024 1:00 PM EDT Office Visit [facility] at [address] - [address] [facility] [place] [address] Ronald Mills MD 240 [facility] A1 [place] [address] documented as of this encounter Visit Diagnoses Not on filedocumented in this encounter Additional Health Concerns Infection Onset Date Last Indicated Resolved Time COVID-19 03/05/2022 03/05/2022 03/15/2022 7:18 PM EDT Assessment Noted Time PHQ-9 Depression Total Score: 2 11/07/19 19 2:06 PM EDT documented as of this encounter Care Teams Processing Talc And Borate Supervisor Relationship Specialty Start Date End Date Caitlyn Bowie MD 3400 [facility] 1 [place] [address] PCP - General Internal Medicine 05/06/21 Henry Kelly MD Pulmonary Department [address] [place] [address], [address] [place] [address] Physician Pulmonary Disease 09/06/17 06/22/20 documented as of this encounter
--- OUTSIDE RECORDS SUMMARY | 2024-10-17 18:14 | XMS_ITS | Encounter Summary ---
Author Organization [facility] Address [address] [place] [address] Care Team Providers Care Master Data Analyst Name Role Phone Caitlyn Bowie MD Primary Care Provider +1- [phone] Encounter Details Date Type Department Care Team (Late st Contact Info) Description 12/03/2015 Scanned Document [facility] Health Information Management [address] [place] [address] External, Provider Social History Tobacco Use Types [...] Description 10/18/2024 10:30 AM EDT Office Visit [facility] [address] [place] [address] Alfredo Michaud Jr., EMELIA [address] [place] [address] [place] [address] 10/31/2024 1:00 PM EDT Office Visit Hematology Program at [address] - [address] [place] [address] Ronald Mills MD 240 [facility] [address] [place] [address] documented as of this encounter Procedures Procedure Name Priority Date/Time Associated Diagnosis Comments LAB SCAN Routine 12/03/2015 documented in this encounter Results * Lab Scan (12/03/2015) Blood specimen (specimen) us Provider External LAB BLOOD ORDERABLES Edited Re sult - Final [facility] [place], [place], [facility] documented in this encounter Visit Diagnoses Not on filedocumented in this encounter Additional Health Concerns Infection Onset Date Last Indicated Resolved Time COVID-19 03/05/2022 03/05/2022 03/15/2022 7:18 PM EDT documented as of this encounter Care Teams Master Data Analyst Relationship Specialty Start Date End Date Caitlyn Bowie MD 3400 [facility] 1 [place] [address] PCP - General Internal Medicine 05/06/21 Henry Kelly MD Pulmonary Department 175 [facility], [address] [place] [address] Physician Pulmonary Disease 09/06/17 06/22/20 documented as of this encounter
--- OUTSIDE RECORDS SUMMARY | 2024-10-17 18:14 | XMS_ITS | Encounter Summary ---
Author Organization [facility] and [facility] Address [address] [place] [phone] Care Team Providers Care Electroencephalographic Technologist Name Role Phone Caitlyn Bowie MD Primary Care Provider +1- [phone] Encounter Details Date Type Department Care Team (Late st Contact Info) Description 12/29/2021 Telephone [facility] at [address] - [address] [address] Ronald Mills MD [address] [place] [address] Social History Tobacco Use Types Packs/Day [...] not sure where the blood's coming from. [phone] documented in this encounter Plan of Treatment Upcoming Encounters Date Type Department Care Team (Late st Contact Info) Description 10/18/2024 10:30 AM EDT Office Visit [facility] [address] [place] [address] Alfredo Michaud Jr., EMELIA [address] [place] [address] [place] [address] 10/31/2024 1:00 PM EDT Office Visit [facility] at [address] - [address] [address] Ronald Mills MD [address] [place] [address] documented as of this encounter Visit Diagnoses Not on filedocumented in this encounter Additional Health Concerns Infection Onset Date Last Indicated Resolved Time COVID-19 03/05/2022 03/05/2022 03/15/2022 7:18 PM EDT Assessment Noted Time PHQ-9 Depression Total Score: 2 11/07/19 19 2:06 PM EDT documented as of this encounter Care Teams Electroencephalographic Technologist Relationship Specialty Start Date End Date Caitlyn Bowie MD [address] [address] PCP - General Internal Medicine 05/06/21 documented as of this encounter
--- OUTSIDE RECORDS SUMMARY | 2024-10-17 18:14 | XMS_ITS | Encounter Summary ---
Author Organization [facility] Address [address] [place] [address] Care Team Providers Care Heel Gummer Name Role Phone Caitlyn Bowie MD Primary Care Provider +1- [phone] Encounter Details Date Type Department Care Team (Late st Contact Info) Description 03/12/2019 Scanned Document [facility] Health Information Management [address] [place] [phone] External, Provider Social History Tobacco Use Types [...] 10/18/2024 10:30 AM EDT Office Visit [facility] [address] [place] [address] Alfredo Michaud Jr., PA [address] [place] [address] [place] [address] 10/31/2024 1:00 PM EDT Office Visit [facility] at [address] - [address] [place] [address] [facility] [place] [address] Ronald Mills MD [address] [place] [address] documented as of this encounter [...] documented as of this encounter Care Teams Heel Gummer Relationship Specialty Start Date End Date Caitlyn Bowie MD 3400 [facility] 1 [place] [address] PCP - General Internal Medicine 05/06/21 Henry Kelly MD Pulmonary Department [address] [place] [address], [address] [place] [address] Physician Pulmonary Disease 09/06/17 06/22/20 documented as of this encounter
--- OUTSIDE RECORDS SUMMARY | 2024-10-17 18:15 | XMS_ITS | Encounter Summary ---
Author Organization [facility] and [facility] Address [address] [place] [address] Care Team Providers Care Crossword Puzzle Maker Name Role Phone Caitlyn Bowie MD Primary Care Provider +1- [phone] Encounter Details Date Type Department Care Team (Late st Contact Info) Description 12/16/2016 Scanned Document [facility] Health Information Management [address] [place] [address] External, Provider Social History Tobacco Use Types [...] Description 10/18/2024 10:30 AM EDT Office Visit [facility] [address] [place] [address] Alfredo Michaud Jr., EMELIA [address] [place] [address] [place] [address] 10/31/2024 1:00 PM EDT Office Visit Hematology Program at [address] - [address] [place] [address] Ronald Mills MD [address] [place] [address] documented as of this encounter [...] documented as of this encounter Care Teams Crossword Puzzle Maker Relationship Specialty Start Date End Date Caitlyn Bowie MD 3400 [facility] 1 [place] [address] PCP - General Internal Medicine 05/06/21 Henry Kelly MD Pulmonary Department 175 [facility], [address] [place] [address] Physician Pulmonary Disease 09/06/17 06/22/20 documented as of this encounter
--- OUTSIDE RECORDS SUMMARY | 2024-10-17 18:15 | XMS_ITS | Encounter Summary ---
Author Organization [facility] and [facility] Address [address] [place] [address] Care Team Providers Care Roper Operator Name Role Phone Caitlyn Bowie MD Primary Care Provider +1- [phone] Reason for Referral * Imaging (Routine) - Closed Specialty Diagnoses / Procedures Referred By Contac t Referred To Contact Procedures NM Lung Ventilation Perfusion ([facility]) External, Provider Referral ID Status Reason Start Date Expiration Date Visits Re quested Visits Authorized [id number] Closed 08/22/2016 08/22/2017 4 4 Encounter Details Date Type Department Care Team (Late st Contact Info) Description 08/22/2016 Scanned Document Thoracic Oncology Program at [address] [address] External, Provider Social History Tobacco Use Types [...] Description 10/18/2024 10:30 AM EDT Office Visit [facility] [address] [place] [address] [place] [address] Alfredo Michaud Jr., EMELIA [address] [place] [address] [place] [address] 10/31/2024 1:00 PM EDT Office Visit [facility] at [address] - [address] [facility] [place] [address] Ronald Mills MD [address] [place] [address] documented as of this encounter Procedures Procedure Name Priority Date/Time Associated Diagnosis Comments XRAY RESULT SCAN Routine 07/27/2016 CT RESULT SCAN Routine 07/27/2016 CT RESULT SCAN Routine 07/27/2016 CARDIAC EKG RESULT SCAN Routine 07/27/2016 LAB SCAN Routine 07/27/2016 NM LUNG VENTILATION PERFUSIO N ( YH ) Routine 07/27/2016 documented in this encounter Results * Xray Result Scan (07/27/2016) us Provider External IMG SCAN REPORTS Final Result Performing Organization Address City/[facility]/ZIP Co de Phone Number [facility] [place], [place], [place] * CT Result Scan (07/27/2016) us Provider External IMG SCAN REPORTS Final Result [facility] [place] * Cardiac EKG Result Scan (07/27/2016) us Provider External CV CARDIAC REPORT (CVR) Final Result [facility] [place] * CT Result Scan (07/27/2016) us Provider External IMG SCAN REPORTS Final Result [facility] [place] * Lab Scan (07/27/2016) Blood specimen (specimen) us Provider External LAB BLOOD ORDERABLES Final Res ult [facility] * NM Lung Ventilation Perfusion ( Y) (07/27/2016) Anatomical Region Laterality Modality Chest, Lung Nuclear Medicine Provider External IMG NM ORDERABLES Final Result documented in this encounter Visit Diagnoses Not on filedocumented in this encounter Additional Health Concerns Infection Onset Date Last Indicated Resolved Time COVID-19 03/05/2022 03/05/2022 03/15/2022 7:18 PM EDT documented as of this encounter Care Teams Roper Operator Relationship Specialty Start Date End Date Caitlyn Bowie MD 3400 [facility] Max 1 [place] [address] PCP - General Internal Medicine 05/06/21 Henry Kelly MD Pulmonary Department 175 [facility], [address] [place] [address] Physician Pulmonary Disease 09/06/17 06/22/20 documented as of this encounter
--- OUTSIDE RECORDS SUMMARY | 2024-10-17 18:15 | XMS_ITS | Encounter Summary ---
Author Organization [facility] Address [address] [place] [address] Care Team Providers Care Utility Worker Driver Name Role Phone Caitlyn Bowie MD Primary Care Provider +1- [phone] Encounter Details Date Type Department Care Team (Late st Contact Info) Description 07/27/2016 Scanned Document [facility] at [address] [address] Suzy Kong MD [address] [place] [address] Social History Tobacco Use Types Packs/Day [...] Description 10/18/2024 10:30 AM EDT Office Visit [facility] [address] [place] [address] Alfredo Michaud Jr., PA [address] [place] [address] [place] [address] 10/31/2024 1:00 PM EDT Office Visit [facility] 20 [facility] - [address] [facility] [place] [facility] [place] [address] Ronald Mills MD 240 [facility] A1 [place] [address] documented as of this encounter Visit Diagnoses Not on filedocumented in this encounter Additional Health Concerns Infection Onset Date Last Indicated Resolved Time COVID-19 03/05/2022 03/05/2022 03/15/2022 7:18 PM EDT documented as of this encounter Care Teams Utility Worker Driver Relationship Specialty Start Date End Date Caitlyn Bowie MD 3400 [facility] 1 [place] [address] PCP - General Internal Medicine 05/06/21 Henry Kelly MD Pulmonary Department [address] [place] [address], [address] [place] [address] Physician Pulmonary Disease 09/06/17 06/22/20 documented as of this encounter
--- OUTSIDE RECORDS SUMMARY | 2024-10-17 18:15 | XMS_ITS | Encounter Summary ---
Author Organization [facility] and [facility] Address [address] [place] [address] Care Team Providers Care Shingles Roofer Helper Name Role Phone Caitlyn Bowie MD Primary Care Provider +1- [phone] Encounter Details Date Type Department Care Team (Late st Contact Info) Description 07/27/2016 Scanned Document [facility] at [address] [address] Suzy Kong MD [address] [place] [phone] Social History Tobacco Use Types Packs/Day [...] Description 10/18/2024 10:30 AM EDT Office Visit [facility] [address] [place] [address] Alfredo Michaud Jr., PA [address] [place] [address] [place] [address] 10/31/2024 1:00 PM EDT Office Visit [facility] at [facility] 20 [facility] - [address] [facility] [place] [address] Ronald Mills MD 240 [facility] A1 [place] [address] documented as of this encounter Visit Diagnoses Not on filedocumented in this encounter Additional Health Concerns Infection Onset Date Last Indicated Resolved Time COVID-19 03/05/2022 03/05/2022 03/15/2022 7:18 PM EDT documented as of this encounter Care Teams Shingles Roofer Helper Relationship Specialty Start Date End Date Caitlyn Bowie MD 3400 [facility] 1 [place] [address] PCP - General Internal Medicine 05/06/21 Henry Kelly MD Pulmonary Department [address] [place] [address], [address] [place] [address] Physician Pulmonary Disease 09/06/17 06/22/20 documented as of this encounter
--- OUTSIDE RECORDS SUMMARY | 2024-10-17 18:15 | XMS_ITS | Encounter Summary ---
Author Organization [facility] and [facility] Address [address] [place] [address] Care Team Providers Care Filenet Developer Name Role Phone Caitlyn Bowie MD Primary Care Provider +1- [phone] Encounter Details Date Type Department Care Team (Late st Contact Info) Description 10/10/2016 Scanned Document [facility] Health Information Management [address] [place] [address] External, Provider Social History Tobacco Use Types [...] Description 10/18/2024 10:30 AM EDT Office Visit [facility] [address] [place] [address] Alfredo Michaud Jr., EMELAI [address] [place] [address] [place] [address] 10/31/2024 1:00 PM EDT Office Visit Hematology Program at [address] - [address] [place] [address] Ronald Mills MD 240 [facility] [address]1 [place] [address] documented as of this encounter Visit Diagnoses Not on filedocumented in this encounter Additional Health Concerns Infection Onset Date Last Indicated Resolved Time COVID-19 03/05/2022 03/05/2022 03/15/2022 7:18 PM EDT documented as of this encounter Care Teams Filenet Developer Relationship Specialty Start Date End Date Caitlyn Bowie MD 3400 [facility] 1 [place] [address] PCP - General Internal Medicine 05/06/21 Henry Kelly MD Pulmonary Department [address] [place] [address], [address] [place] [address] Physician Pulmonary Disease 09/06/17 06/22/20 documented as of this encounter
--- OUTSIDE RECORDS SUMMARY | 2024-10-17 18:15 | XMS_ITS | Encounter Summary ---
Author Organization [facility] and [facility] Address [address] [place] [address] Care Team Providers Care Lieutenant Fire Fighter Name Role Phone Caitlyn Bowie MD Primary Care Provider +1- [phone] Encounter Details Date Type Department Care Team (Late st Contact Info) Description 07/08/2016 Scanned Document [facility] Health Information Management [address] [place] [address] External, Provider Social History Tobacco Use Types [...] Description 10/18/2024 10:30 AM EDT Office Visit [facility] [address] [place] [address] Alfredo Michaud Jr., EMELIA [address] [place] [address] [place] [address] 10/31/2024 1:00 PM EDT Office Visit Hematology Program at [address] - [address] [place] [address] Ronald Mills MD [address] [place] [address] documented as of this encounter Procedures Procedure Name Priority Date/Time Associated Diagnosis Comments LAB SCAN Routine 07/08/2016 documented in this encounter Results * Lab Scan (07/08/2016) Blood specimen (specimen) us Provider External LAB BLOOD ORDERABLES Final Res ult [facility] documented in this encounter Visit Diagnoses Not on filedocumented in this encounter Additional Health Concerns Infection Onset Date Last Indicated Resolved Time COVID-19 03/05/2022 03/05/2022 03/15/2022 7:18 PM EDT documented as of this encounter Care Teams Lieutenant Fire Fighter Relationship Specialty Start Date End Date Caitlyn Bowie MD 3400 [facility] 1 [address] PCP - General Internal Medicine 05/06/21 Henry Kelly MD Pulmonary Department 175 [facility], [address] [address] Physician Pulmonary Disease 09/06/17 06/22/20 documented as of this encounter
--- OUTSIDE RECORDS SUMMARY | 2024-10-17 18:15 | XMS_ITS | Encounter Summary ---
Author Organization [facility] and [facility] Address [address] [place] [address] Care Team Providers Care Share Holder Name Role Phone Caitlyn Bowie MD Primary Care Provider +1- [phone] Encounter Details Date Type Department Care Team (Late st Contact Info) Description 07/27/2016 Scanned Document [facility] at [address] [address] Suzy Kong MD [address] [place] [phone] Social History Tobacco Use Types Packs/Day [...] Description 10/18/2024 10:30 AM EDT Office Visit [facility] [address] [place] [address] Alfredo Michaud Jr., PA [address] [place] [address] [place] [address] 10/31/2024 1:00 PM EDT Office Visit [facility] at [facility] 20 [facility] - NP7[address]301 [facility] [place] [address] Ronald Mills MD 240 [facility] A1 [place] [address] documented as of this encounter Visit Diagnoses Not on filedocumented in this encounter Additional Health Concerns Infection Onset Date Last Indicated Resolved Time COVID-19 03/05/2022 03/05/2022 03/15/2022 7:18 PM EDT documented as of this encounter Care Teams Share Holder Relationship Specialty Start Date End Date Caitlyn Bowie MD 3400 [facility] 1 [place] [address] PCP - General Internal Medicine 05/06/21 Henry Kelly MD Pulmonary Department [address] [place] [address], [address] [place] [address] Physician Pulmonary Disease 09/06/17 06/22/20 documented as of this encounter
--- OUTSIDE RECORDS SUMMARY | 2024-10-17 18:15 | XMS_ITS | Encounter Summary ---
Author Organization [facility] and [facility] Address [address] [place] [address] Care Team Providers Care Software Technician Name Role Phone Caitlyn Bowie MD Primary Care Provider +1- [phone] Encounter Details Date Type Department Care Team (Late st Contact Info) Description 12/14/2016 Scanned Document [facility] Health Information Management [address] [place] [address] External, Provider Social History Tobacco Use Types [...] Description 10/18/2024 10:30 AM EDT Office Visit [facility] [address] [place] [address] Alfredo Michaud Jr., EMELIA [address] [place] [address] [place] [address] 10/31/2024 1:00 PM EDT Office Visit Hematology Program at [address] - [address] [place] [address] Ronald Mills MD 240 [facility] Max A1 [place] [address] documented as of this encounter Visit Diagnoses Not on filedocumented in this encounter Additional Health Concerns Infection Onset Date Last Indicated Resolved Time COVID-19 03/05/2022 03/05/2022 03/15/2022 7:18 PM EDT documented as of this encounter Care Teams Software Technician Relationship Specialty Start Date End Date Caitlyn Bowie MD 3400 [facility] 1 [place] [address] PCP - General Internal Medicine 05/06/21 Henry Kelly MD Pulmonary Department [address] [place] [address], [address] [place] [address] Physician Pulmonary Disease 09/06/17 06/22/20 documented as of this encounter
--- OUTSIDE RECORDS SUMMARY | 2024-10-17 18:15 | XMS_ITS | Encounter Summary ---
Author Organization [facility] and [facility] Address [address] [place] [address] Care Team Providers Care Workforce Planner Name Role Phone Caitlyn Bowie MD Primary Care Provider +1- [phone] Encounter Details Date Type Department Care Team (Late st Contact Info) Description 12/16/2016 Scanned Document [facility] Health Information Management [address] [place] [address] External, Provider Social History Tobacco Use Types [...] Description 10/18/2024 10:30 AM EDT Office Visit [facility] [address] [place] [address] Alfredo Michaud Jr., EMELIA [address] [place] [address] [place] [address] 10/31/2024 1:00 PM EDT Office Visit Hematology Program at [address] - [address] [place] [address] Ronald Mills MD [address] [place] [address] documented as of this encounter [...] documented as of this encounter Care Teams Workforce Planner Relationship Specialty Start Date End Date Caitlyn Bowie MD 3400 [facility] 1 [place] [address] PCP - General Internal Medicine 05/06/21 Henry Kelly MD Pulmonary Department 175 [facility], [address] [place] [address] Physician Pulmonary Disease 09/06/17 06/22/20 documented as of this encounter
--- OUTSIDE RECORDS SUMMARY | 2024-10-17 18:15 | XMS_ITS | Encounter Summary ---
Author Organization [facility] and [facility] Address [address] [place] [address] Care Team Providers Care Category Specialist Name Role Phone Caitlyn Bowie MD Primary Care Provider +1- [phone] Encounter Details Date Type Department Care Team (Late st Contact Info) Description 06/17/2016 Scanned Document [facility] Health Information Management [address] [place] [phone] External, Provider Social History Tobacco Use Types [...] Description 10/18/2024 10:30 AM EDT Office Visit [facility] [address] [place] [address] Alfredo Michaud Jr., EMELIA [address] [place] [address] [place] [address] 10/31/2024 1:00 PM EDT Office Visit Hematology Program at [address] - [address] [place] [address] Ronald Mills MD [address] [place] [address] documented as of this encounter Procedures Procedure Name Priority Date/Time Associated Diagnosis Comments XRAY RESULT SCAN Routine 06/17/2016 documented in this encounter Results * Xray Result Scan (06/17/2016) us Provider External IMG SCAN REPORTS Final Result Performing Organization Address [facility] de Phone Number [facility] documented in this encounter Visit Diagnoses Not on filedocumented in this encounter Additional Health Concerns Infection Onset Date Last Indicated Resolved Time COVID-19 03/05/2022 03/05/2022 03/15/2022 7:18 PM EDT documented as of this encounter Care Teams Category Specialist Relationship Specialty Start Date End Date Caitlyn Bowie MD 3400 [facility] 1 [place] [address] PCP - General Internal Medicine 05/06/21 Henry Kelly MD Pulmonary Department 175 [facility], [address] [place] [address] Physician Pulmonary Disease 09/06/17 06/22/20 documented as of this encounter
--- OUTSIDE RECORDS SUMMARY | 2024-10-17 18:15 | XMS_ITS | Encounter Summary ---
Author Organization [facility] and [facility] Address [address] [place] [address] Care Team Providers Care Contestant Coordinator Name Role Phone Caitlyn Bowie MD Primary Care Provider +1- [phone] Encounter Details Date Type Department Care Team (Late st Contact Info) Description 12/14/2016 Scanned Document [facility] Health Information Management [address] [place] [address] External, Provider Social History Tobacco Use Types [...] Description 10/18/2024 10:30 AM EDT Office Visit [facility] [address] [place] [address] Alfredo Michaud Jr., EMELIA [address] [place] [address] [place] [address] 10/31/2024 1:00 PM EDT Office Visit Hematology Program at [address] - [address] [place] [address] Ronald Mills MD [address] [place] [address] documented as of this encounter [...] documented as of this encounter Care Teams Contestant Coordinator Relationship Specialty Start Date End Date Caitlyn Bowie MD 3400 [facility] 1 [place] [address] PCP - General Internal Medicine 05/06/21 Henry Kelly MD Pulmonary Department 175 [facility], [address] [place] [address] Physician Pulmonary Disease 09/06/17 06/22/20 documented as of this encounter
--- OUTSIDE RECORDS SUMMARY | 2024-10-17 18:15 | XMS_ITS | Encounter Summary ---
Author Organization [facility] and [facility] Address [address] [place] [address] Care Team Providers Care Electrician Front Name Role Phone Caitlyn Bowie MD Primary Care Provider +1- [phone] Encounter Details Date Type Department Care Team (Late st Contact Info) Description 06/17/2016 Scanned Document [facility] Health Information Management [address] [place] [address] External, Provider Social History Tobacco Use Types [...] Description 10/18/2024 10:30 AM EDT Office Visit [facility] [address] [place] [address] Alfredo Michaud Jr., EMELIA [address] [place] [address] [place] [address] 10/31/2024 1:00 PM EDT Office Visit Hematology Program at [address] - [address] [place] [address] Ronald Mills MD 240 [facility] Max [address] [place] [address] documented as of this encounter Visit Diagnoses Not on filedocumented in this encounter Additional Health Concerns Infection Onset Date Last Indicated Resolved Time COVID-19 03/05/2022 03/05/2022 03/15/2022 7:18 PM EDT documented as of this encounter Care Teams Electrician Front Relationship Specialty Start Date End Date Caitlyn Bowie MD 3400 [facility] 1 [place] [address] PCP - General Internal Medicine 05/06/21 Henry Kelly MD Pulmonary Department [address] [place] [address], [address] [place] [address] Physician Pulmonary Disease 09/06/17 06/22/20 documented as of this encounter
[2024-10-17 18:37] LABS: Prothrombin Time 23.8 SEC (10.9-12.4)
--- NOTE | 2024-10-17 18:37 | PC.NURSE ---
pt a&ox3, labs drawn, ekg performed, seasonal tax preparer applied- nsr on monitor, pt initially had 6/10 chest pain pt states her pain had decreased and currently is 0. pt ambulated to bathroom with steady gait with her O2 that she wears at baseline. call ma within reach,plan of care ongoing.l
[2024-10-17 18:52] LABS: B Type Natriuretic Peptide 644 pg/mL (<100); Troponin-I High Sensitivity 20.9 ng/L (<3.5-17.0)
[2024-10-17 19:21] VITALS: BP 123/67; PULSE 70; RESP 16; TEMP 36.7; O2SAT 98
[2024-10-17 20:13] VITALS: BP 123/67; PULSE 70; RESP 16; TEMP 36.7; O2SAT 98
== END 2024-10-17 20:15 | disposition home or self-care (01) ==
PROVIDERS: Emergency Provider Emergency Medicine; PCP Internal Medicine
DX: R07.89 Other chest pain (principal); J44.9 Chronic obstructive pulmonary disease, unspecified; R05.9 Cough, unspecified; Z86.718 Personal history of other venous thrombosis and embolism; Z79.01 Long term (current) use of anticoagulants; Z79.899 Other long term (current) drug therapy; Z86.711 Personal history of pulmonary embolism
CPT/HCPCS: 36415; 71045; 80053; 83880; 84484; 85025; 85610; 93005; 99283; 99285

== ENCOUNTER → 2024-10-17 15:38 | Outpatient (BNV) | payer MEDICARE, SELFPAY | PROVIDERS: Emergency Provider Emergency Medicine; PCP Internal Medicine; Visit Provider Internal Medicine Cardiovascular Disease | DX: I45.2 Bifascicular block (principal) | CPT/HCPCS: 93010 ==

== ENCOUNTER → 2024-10-17 17:35 | Outpatient (BNV) | payer MEDICARE, SELFPAY | PROVIDERS: Emergency Provider Emergency Medicine; PCP Internal Medicine; Visit Provider Radiology Diagnostic Radiology | DX: R07.9 Chest pain, unspecified (principal) | CPT/HCPCS: 71045 ==

== ENCOUNTER 2024-10-23 15:19 | Outpatient (REF) | payer MEDICARE, SELFPAY ==
[2024-10-23 15:53] LABS: MANUAL DIFF FLAG NO
[2024-10-23 17:12] LABS: Basophils Absolute Auto 0.1 X10*3/uL (0.0-0.2); Basophils Percent Auto 0.6 % (0-2); Eosinophils Percent Auto 0.3 % (0-4); Hematocrit 36.4 % (37.0-47.0); Hemoglobin 11.8 g/dl (12.0-16.0); Imm Gran Abs Auto 0.12 X10*3/uL (0.00-0.03); Imm Gran Pct Auto 1.1 % (0.0-0.4); Lymphocytes Percent Auto 8.6 % (20-40); Mean Corpuscular HGB Conc 32.4 g/dl (31.0-35.0); Mean Corpuscular Hemoglobin 32.9 pg (27.0-33.0); Mean Corpuscular Volume 101.4 fL (80.0-98.0); Mean Platelet Volume 11.5 fL (9.4-12.3); Monocytes Absolute Auto 0.7 X10*3/uL (0.1-1.2); Monocytes Percent Auto 6.5 % (2-11); Neutrophils Absolute Auto 9.2 x10*3/uL (2.0-8.3); Neutrophils Percent Auto 82.9 % (45-73); Platelet Count 226 X10*3/uL (160-400); Red Blood Count 3.59 X10*6/uL (4.20-5.50); Red Cell Distribution Width 13.5 % (11.0-16.0); White Blood Count 11.2 X10*3/uL (4.8-10.8)
[2024-10-23 17:19] LABS: INTERNATIONAL NORM RATIO 1.5 (0.9-1.1); Prothrombin Time 17.3 SEC (10.9-12.4)
[2024-10-23 17:49] LABS: Alanine Aminotransferase 29 U/L (0-31); Alkaline Phosphatase 84 U/L (39-117); Anion Gap 14 (12-20); Aspartate Amino Transferase 32 U/L (5-31); Bilirubin Total 0.4 mg/dL (0.0-1.0); Blood Urea Nitrogen 23 mg/dL (9-16); Calcium 10.5 mg/dL (8.4-10.2); Carbon Dioxide 31 mmol/L (22-29); Chloride 99 mmol/L (96-108); Estimated Glomerular Filt Rate > 60; Glucose Random 149 mg/dL (60-115); Iron 101 mcg/dL (30-160); Percent Iron Saturation 34 % (15-50); Sodium 141 mmol/L (135-145); Total Iron Binding Capacity 296 mcg/dL (228-428); Total Protein 6.8 g/dL (6.5-8.0); Unsaturated Iron Binding 195 ug/dL
[2024-10-23 17:51] LABS: Albumin Level 3.9 g/dL (3.5-5.0)
--- OUTSIDE RECORDS SUMMARY | 2024-10-23 17:52 | XMS_ITS | Encounter Summary ---
Author Organization [facility] Address [address] [place] [phone] Care Team Providers Care Content Curator Name Role Phone Caitlyn Bowie MD Primary Care Provider +1- [phone] Encounter Details Date Type Department Care Team (Late st Contact Info) Description 12/16/2016 Scanned Document [facility] Health Information Management [address] [place] [address] External, Provider Social History Tobacco Use Types [...] Contact Info) Description 10/31/2024 1:00 PM EDT Office Visit [facility] at [address] - [address] [place] [address] Ronald Mills MD [address] [place] [address] documented as of this encounter Procedures [...] as of this encounter Care Teams Content Curator Relationship Specialty Start Date End Date Caitlyn Bowie MD 3400 [facility] 1 [place] [address] PCP - General Internal Medicine 05/06/21 Henry Kelly MD Pulmonary Department [address] [place] [address], [address] [place] [address] Physician Pulmonary Disease 09/06/17 06/22/20 documented as of this encounter
--- OUTSIDE RECORDS SUMMARY | 2024-10-23 17:52 | XMS_ITS | Encounter Summary ---
Author Organization [facility] and [facility] Address [address] [place] [address] Care Team Providers Care Dinner Cook Name Role Phone Caitlyn Bowie MD Primary Care Provider +1- [phone] Encounter Details Date Type Department Care Team (Late Contact Info) Description 12/16/2016 Scanned Document [facility] Health Information Management [address] [place] [phone] External, Provider Social History Tobacco Use Types [...] Office Visit [facility] at [address] - [address] [place] [address] Ronald Mills MD [address] [place] [address] documented as of this encounter Procedures [...] documented as of this encounter Care Teams Dinner Cook Relationship Specialty Start Date End Date Caitlyn Bowie MD 3400 [facility] 1 [place] [address] PCP - General Internal Medicine 05/06/21 Henry Kelly MD Pulmonary Department [address] [facility], [address] [place] [address] Physician Pulmonary Disease 09/06/17 06/22/20 documented as of this encounter
--- OUTSIDE RECORDS SUMMARY | 2024-10-23 17:52 | XMS_ITS | Encounter Summary ---
Author Organization [facility] Address [address] [address] Care Team Providers Care Chimney Mechanic Name Role Phone Caitlyn Bowie MD Primary Care Provider +1- [phone] Encounter Details Date Type Department Care Team (Late st Contact Info) Description 07/12/2019 Scanned Document [facility] at [address] [address] Norma Renee MD [address] [place] [address] Social History Tobacco Use Types Packs/Day [...] Description 10/31/2024 1:00 PM EDT Office Visit Hematology Program at [address] - [address] [place] [address] Ronald Mills MD [address] [address] documented as of this encounter Visit Diagnoses Not on filedocumented in this encounter Additional Health Concerns Infection Onset Date Last Indicated Resolved Time COVID-19 03/05/2022 03/05/2022 03/15/2022 7:18 PM EDT Assessment Noted Time PHQ-9 Depression Total Score: 2 11/07/19 19 2:06 PM EDT documented as of this encounter Care Teams Chimney Mechanic Relationship Specialty Start Date End Date Caitlyn Bowie MD 3400 [facility] 1 [place] [address] PCP - General Internal Medicine 05/06/21 Henry Kelly MD Pulmonary Department 175 [facility], [address] [place] [address] Physician Pulmonary Disease 09/06/17 06/22/20 documented as of this encounter
--- OUTSIDE RECORDS SUMMARY | 2024-10-23 17:52 | XMS_ITS | Encounter Summary ---
Author Organization [facility] and [facility] Address [address] [place] [phone] Care Team Providers Care Log Clerk Name Role Phone Caitlyn Bowie MD Primary Care Provider +1- [phone] Encounter Details Date Type Department Care Team (Late st Contact Info) Description 02/20/2017 Scanned Document [facility] Health Information Management [address] [place] [address] External, Provider Social History Tobacco Use Types [...] EDT Office Visit [facility] at [address] - [address] [place] [address] Ronald Mills MD [address] [place] [address] documented as of this encounter Procedures [...] as of this encounter Care Teams Log Clerk Relationship Specialty Start Date End Date Caitlyn Bowie MD 3400 [facility] 1 [place] [address] PCP - General Internal Medicine 05/06/21 Henry Kelly MD Pulmonary Department 175 [facility], [address] [place] [address] Physician Pulmonary Disease 09/06/17 06/22/20 documented as of this encounter
--- OUTSIDE RECORDS SUMMARY | 2024-10-23 17:52 | XMS_ITS | Encounter Summary ---
Author Organization [facility] Address [address] [place] [phone] Care Team Providers Care Asset Management Coordinator Name Role Phone Caitlyn Bowie MD Primary Care Provider +1- [phone] Encounter Details Date Type Department Care Team (Late Contact Info) Description 09/18/2020 Scanned Document [facility] Health Information Management [address] [place] [phone] External, Provider Social History Tobacco Use Types [...] Office Visit [facility] at [address] - [address] [place] [address] Ronald Mills MD [address] [place] [address] documented as of this encounter Procedures [...] documented as of this encounter Care Teams Asset Management Coordinator Relationship Specialty Start Date End Date Caitlyn Bowie MD [address] [address] PCP - General Internal Medicine 05/06/21 documented as of this encounter
--- OUTSIDE RECORDS SUMMARY | 2024-10-23 17:52 | XMS_ITS | Encounter Summary ---
Author Organization [facility] and [facility] Address [address] [place] [address] Care Team Providers Care Assistant Community Manager Name Role Phone Caitlyn Bowie MD Primary Care Provider +1- [phone] Encounter Details Date Type Department Care Team (Late Contact Info) Description 05/19/2020 Scanned Document [facility] at [address] [address] External, Provider Social History Tobacco Use Types [...] EDT Office Visit Hematology Program at [address] [place], [place] [address] Ronald Mills MD [address] [place] [phone] documented as of this encounter Procedures [...] as of this encounter Care Teams Assistant Community Manager Relationship Specialty Start Date End Date Caitlyn Bowie MD 3400 [facility] 1 [place] [address] PCP - General Internal Medicine 05/06/21 Henry Kelly MD Pulmonary Department 175 [facility], [address] [place] [address] Physician Pulmonary Disease 09/06/17 06/22/20 documented as of this encounter
--- OUTSIDE RECORDS SUMMARY | 2024-10-23 17:52 | XMS_ITS | Encounter Summary ---
Author Organization [facility] and [facility] Address [address] [place] [address] Care Team Providers Care Tractor Engine Assembler Name Role Phone Caitlyn Bowie MD Primary Care Provider +1- [phone] Encounter Details Date Type Department Care Team (Late Contact Info) Description 09/15/2020 Scanned Document Cancer Center at [address] [address] External, Provider Social History Tobacco Use Types [...] EDT Office Visit Hematology Program at [address] - [address] [place], [place] [address] Ronald Mills MD [address] [phone] documented as of this encounter [...] as of this encounter Care Teams Tractor Engine Assembler Relationship Specialty Start Date End Date Caitlyn Bowie MD [facility] [address] [address] PCP - General Internal Medicine 05/06/21 documented as of this encounter
--- OUTSIDE RECORDS SUMMARY | 2024-10-23 17:52 | XMS_ITS | Encounter Summary ---
Author Organization [facility] and [facility] Address [address] [place] [address] Care Team Providers Care Cementing Bulk Material Operator Name Role Phone Caitlyn Bowie MD Primary Care Provider +1- [phone] Encounter Details Date Type Department Care Team (Late st Contact Info) Description 04/26/2017 Scanned Document Cardiovascular Medicine at [address] [place] [address] [phone] Norma Renee MD [address] [place] [phone] Social History Tobacco Use Types Packs/Day Years [...] EDT Office Visit Hematology Program at [address] - [address] [address] Ronald Mills MD [address] [place] [phone] documented as of this encounter Visit Diagnoses Not on filedocumented in this encounter Additional Health Concerns Infection Onset Date Last Indicated Resolved Time COVID-19 03/05/2022 03/05/2022 03/15/2022 7:18 PM EDT documented as of this encounter Care Teams Cementing Bulk Material Operator Relationship Specialty Start Date End Date Caitlyn Bowie MD [address] [facility] 1 [place] [address] PCP - General Internal Medicine 05/06/21 Henry Kelly MD Pulmonary Department 175 [facility], [address] [place] [address] Physician Pulmonary Disease 09/06/17 06/22/20 documented as of this encounter
--- OUTSIDE RECORDS SUMMARY | 2024-10-23 17:52 | XMS_ITS | Encounter Summary ---
Author Organization [facility] and [facility] Address [address] [place] [address] Care Team Providers Care Die Stamping Press Operator Name Role Phone Caitlyn Bowie MD Primary Care Provider +1- [phone] Encounter Details Date Type Department Care Team (Late st Contact Info) Description 05/14/2020 Documentation Hematology Program at [address] [place] [address] Taya Nuno RN Social History Tobacco Use [...] EDT Office Visit Hematology Program at [address] - [address] [place] [address] Ronald Mills MD [address] [place] [phone] documented as of this encounter Visit Diagnoses Not on filedocumented in this encounter Additional Health Concerns Infection Onset Date Last Indicated Resolved Time COVID-19 03/05/2022 03/05/2022 03/15/2022 7:18 PM EDT Assessment Noted Time PHQ-9 Depression Total Score: 2 11/07/19 19 2:06 PM EDT documented as of this encounter Care Teams Die Stamping Press Operator Relationship Specialty Start Date End Date Caitlyn Bowie MD 3400 [facility] 1 [place] [address] PCP - General Internal Medicine 05/06/21 Henry Kelly MD Pulmonary Department 175 [facility], [address] [place] [address] Physician Pulmonary Disease 09/06/17 06/22/20 documented as of this encounter
--- OUTSIDE RECORDS SUMMARY | 2024-10-23 17:52 | XMS_ITS | Encounter Summary ---
Author Organization [facility] and [facility] Address [address] [place] [address] Care Team Providers Care Microsoft Exchange Administrator Name Role Phone Caitlyn Bowie MD Primary Care Provider +1- [phone] Encounter Details Date Type Department Care Team (Late Contact Info) Description 12/16/2016 Scanned Document [facility] Health Information Management [address] [place] [address] External, Provider Social History Tobacco Use Types [...] EDT Office Visit [facility] at [address] - [address] [place] [address] Ronald Mills MD [address] [place] [phone] documented as of this encounter Procedures [...] as of this encounter Care Teams Microsoft Exchange Administrator Relationship Specialty Start Date End Date Caitlyn Bowie MD 3400 [facility] 1 [place] [address] PCP - General Internal Medicine 05/06/21 Henry Kelly MD Pulmonary Department 175 [facility], [address] [place] [address] Physician Pulmonary Disease 09/06/17 06/22/20 documented as of this encounter
--- OUTSIDE RECORDS SUMMARY | 2024-10-23 17:52 | XMS_ITS | Encounter Summary ---
Author Organization [facility] and [facility] Address [address] [place] [address] Care Team Providers Care Grid Caster Name Role Phone Caitlyn Bowie MD Primary Care Provider +1- [phone] Encounter Details Date Type Department Care Team (Late Contact Info) Description 11/26/2019 Scanned Document Cancer Center at [address] [address] External, Provider Social History Tobacco Use Types [...] PM EDT Office Visit Hematology Program at [address] - [address] [place], [place] [address] Ronald Mills MD [address] [place] [phone] documented as of this encounter Procedures [...] as of this encounter Care Teams Grid Caster Relationship Specialty Start Date End Date Caitlyn Bowie MD 3400 [facility] 1 [place] [address] PCP - General Internal Medicine 05/06/21 Henry Kelly MD Pulmonary Department 175 [facility], [address] [place] [address] Physician Pulmonary Disease 09/06/17 06/22/20 documented as of this encounter
--- OUTSIDE RECORDS SUMMARY | 2024-10-23 17:52 | XMS_ITS | Encounter Summary ---
Author Organization [facility] and [facility] Address [address] [place] [address] Care Team Providers Care Insurance Law Specialist Name Role Phone Caitlyn Bowie MD Primary Care Provider +1- [phone] Encounter Details Date Type Department Care Team (Late st Contact Info) Description 02/21/2017 Scanned Document [facility] Health Information Management [address] [place] [address] External, Provider Social History Tobacco Use Types [...] Office Visit [facility] at [address] - [address] [place] [address] Ronald Mills MD [address] [place] [phone] documented as of this encounter Procedures [...] as of this encounter Care Teams Insurance Law Specialist Relationship Specialty Start Date End Date Caitlyn Bowie MD [facility] 1 [place] [address] PCP - General Internal Medicine 05/06/21 Henry Kelly MD Pulmonary Department 175 [facility], [address] [place] [address] Physician Pulmonary Disease 09/06/17 06/22/20 documented as of this encounter
--- OUTSIDE RECORDS SUMMARY | 2024-10-23 17:52 | XMS_ITS | Encounter Summary ---
Author Organization [facility] and [facility] Address [address] [place] [address] Care Team Providers Care Reception Name Role Phone Caitlyn Bowie MD Primary Care Provider +1- [phone] Encounter Details Date Type Department Care Team (Late st Contact Info) Description 09/07/2020 Scanned Document Cardiovascular Medicine at [address] [place] [address] [phone] Norma Renee MD [address] [place] [phone] Social History Tobacco Use Types Packs/Day [...] EDT Office Visit Hematology Program at [address] - [address] 142569 Ronald Mills MD [address] [place] [phone] documented as of this encounter Visit Diagnoses Not on filedocumented in this encounter Additional Health Concerns Infection Onset Date Last Indicated Resolved Time COVID-19 03/05/2022 03/05/2022 03/15/2022 7:18 PM EDT Assessment Noted Time PHQ-9 Depression Total Score: 2 11/07/19 19 2:06 PM EDT documented as of this encounter Care Teams Reception Relationship Specialty Start Date End Date Caitlyn Bowie MD [address] [address] PCP - General Internal Medicine 05/06/21 documented as of this encounter
--- OUTSIDE RECORDS SUMMARY | 2024-10-23 17:52 | XMS_ITS | Encounter Summary ---
Author Organization [facility] and [facility] Address [address] [place] [address] Care Team Providers Care Marzipan Molder Name Role Phone Caitlyn Bowie MD Primary Care Provider +1- [phone] Encounter Details Date Type Department Care Team (Late Contact Info) Description 08/29/2019 Scanned Document Cancer Center at [address] [address] External, Provider Social History Tobacco Use Types [...] PM EDT Office Visit Hematology Program at [address] - [address] [place], [place] [address] Ronald Mills MD [address] [place] [phone] documented as of this encounter Procedures [...] documented as of this encounter Care Teams Marzipan Molder Relationship Specialty Start Date End Date Caitlyn Bowie MD 3400 [facility] 1 [place] [address] PCP - General Internal Medicine 05/06/21 Henry Kelly MD Pulmonary Department 175 [facility], [address] [place] [address] Physician Pulmonary Disease 09/06/17 06/22/20 documented as of this encounter
--- OUTSIDE RECORDS SUMMARY | 2024-10-23 17:52 | XMS_ITS | Patient Health Record ---
Author Organization [facility] Address [address] [place] [address] Care Team Providers Care Shirt Cleaner Name Role Phone Shruti Bowieberly Primary Care Provider Cristian Fountain Unavailable [phone] Allergies Allergen (clinical drug ingredient) Drug/Non Drug [...] ve metronidazole Flagyl Unknown Drug Allergy Act esmre ciprofloxacin Cipro Unknown Drug Allergy Act esmer [...] Status W/U Status Risk Notes Problem Diverticulitis (393820564) Diverticulitis (K57.92) Active confirmed Problem Irritable bowel syndrome characterized by constipation (783252170) Irritable bowel syndrome with constipation (K58.9) Active confirmed Problem Gastroesophageal reflux disease (407850668) GERD (gastroesophageal reflux disease) (K21.9) Active confirmed Plan Of Treatment No Information Insurance Providers Payer Name Payer Address Payer Phone Subscriber Number Group Number Insured Name Patient Relationship to Insured Coverage Start Date Coverage End Date MEDICARE OF [place] [address] [place] [address] [id number] CINDA WATSON Self - patient is the insured [employer] ATTN CLAIMS [address] [place] [address] [id number] CINDA WATSON Self - patient is the insured Medical (General) History Medical History History ICD Code SC-04/2021-sees Dr. 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 Gomes Pneumomias Hypothyroidism Surgical History Surgery Date(Month/Year) Tonsils and adenoids BOLA Lung cancer-Left lower lobectomy at [facility], XRT, Chemo 2008
--- OUTSIDE RECORDS SUMMARY | 2024-10-23 17:52 | XMS_ITS | Encounter Summary ---
Author Organization [facility] and [facility] Address [address] [place] [address] Care Team Providers Care Executive Chef Assistant Name Role Phone Caitlyn Bowie MD Primary Care Provider +1- [phone] Encounter Details Date Type Department Care Team (Late st Contact Info) Description 09/15/2020 Scanned Document INTERFACE DEFAULT [address] [place] [address] System, Provider Not In Social History Tobacco [...] Office Visit [facility] at [address] - [address] [place] [address] Ronald Mills MD [address] [place] [phone] documented as of this encounter Visit Diagnoses Not on filedocumented in this encounter Additional Health Concerns Infection Onset Date Last Indicated Resolved Time COVID-19 03/05/2022 03/05/2022 03/15/2022 7:18 PM EDT Assessment Noted Time PHQ-9 Depression Total Score: 2 11/07/19 19 2:06 PM EDT documented as of this encounter Care Teams Executive Chef Assistant Relationship Specialty Start Date End Date Caitlyn Bowie MD [address] [address] PCP - General Internal Medicine 05/06/21 documented as of this encounter
--- OUTSIDE RECORDS SUMMARY | 2024-10-23 17:52 | XMS_ITS | Encounter Summary ---
Author Organization [facility] and [facility] Address [address] [place] [address] Care Team Providers Care Engraving Press Operator Name Role Phone Caitlyn Bowie MD Primary Care Provider +1- [phone] Encounter Details Date Type Department Care Team (Late st Contact Info) Description 12/16/2016 Scanned Document [facility] Health Information Management [address] [place] [address] External, Provider Social History Tobacco Use Types [...] Office Visit [facility] at [address] - [address] [place] [address] Ronald Mills MD [address] [place] [phone] documented as of this encounter Procedures [...] documented as of this encounter Care Teams Engraving Press Operator Relationship Specialty Start Date End Date Caitlyn Bowie MD 3400 [facility] 1 [place] [address] PCP - General Internal Medicine 05/06/21 Henry Kelly MD Pulmonary Department 175 [facility], [address] [place] [address] Physician Pulmonary Disease 09/06/17 06/22/20 documented as of this encounter
--- OUTSIDE RECORDS SUMMARY | 2024-10-23 17:52 | XMS_ITS | Encounter Summary ---
Author Organization [facility] and [facility] Address [address] [place] [address] Care Team Providers Care Senior Geologist Name Role Phone Caitlyn Bowie MD Primary Care Provider +1- [phone] Encounter Details Date Type Department Care Team (Late st Contact Info) Description 07/08/2020 Scanned Document [facility] Health Information Management [address] [place] [address] External, Provider Social History Tobacco Use Types [...] EDT Office Visit [facility] at [address] - [address] [place] [address] Ronald Mills MD [address] [place] [phone] documented as of this encounter Procedures [...] as of this encounter Care Teams Senior Geologist Relationship Specialty Start Date End Date Caitlyn Bowie MD [address] [address] PCP - General Internal Medicine 05/06/21 documented as of this encounter
--- OUTSIDE RECORDS SUMMARY | 2024-10-23 17:52 | XMS_ITS | Encounter Summary ---
Author Organization [facility] and [facility] Address [address] [place] [address] Care Team Providers Care Project Superintendent Name Role Phone Caitlyn Bowie MD Primary Care Provider +1- [phone] Encounter Details Date Type Department Care Team (Late st Contact Info) Description 12/16/2016 Scanned Document [facility] Health Information Management [address] [place] [address] External, Provider Social History Tobacco Use Types [...] EDT Office Visit [facility] at [address] - [address] [place] [address] Ronald Mills MD [address] [place] [phone] documented as of this encounter Procedures [...] as of this encounter Care Teams Project Superintendent Relationship Specialty Start Date End Date Caitlyn Bowie MD 3400 [facility] 1 [place] [address] PCP - General Internal Medicine 05/06/21 Henry Kelly MD Pulmonary Department 175 [facility], [address] [place] [address] Physician Pulmonary Disease 09/06/17 06/22/20 documented as of this encounter
--- OUTSIDE RECORDS SUMMARY | 2024-10-23 17:52 | XMS_ITS | Encounter Summary ---
Author Organization [facility] and [facility] Address [address] [place] [address] Care Team Providers Care Television Station Manager Name Role Phone Caitlyn Bowie MD Primary Care Provider +1- [phone] Encounter Details Date Type Department Care Team (Late st Contact Info) Description 06/21/2012 Abstract Head & Neck Cancers Program at [facility] 35 [facility], 4 [place] [address] Mikel Lloyd MD [address] [place] [address] Social History Tobacco Use Types Packs/Day Years [...] PM EDT Office Visit Hematology Program at [address] - [address] [place] [address] Ronald Mills MD [address] [place] [phone] documented as of this encounter Visit Diagnoses Not on filedocumented in this encounter Additional Health Concerns Infection Onset Date Last Indicated Resolved Time COVID-19 03/05/2022 03/05/2022 03/15/2022 7:18 PM EDT documented as of this encounter Care Teams Television Station Manager Relationship Specialty Start Date End Date Caitlyn Bowie MD 3400 [facility] 1 [place] [address] PCP - General Internal Medicine 05/06/21 Henry Kelly MD Pulmonary Department 175 [facility], [address] [place] [address] Physician Pulmonary Disease 09/06/17 06/22/20 documented as of this encounter
--- OUTSIDE RECORDS SUMMARY | 2024-10-23 17:52 | XMS_ITS | Encounter Summary ---
Author Organization [facility] and [facility] Address [address] [place] [address] Care Team Providers Care Spring Upholsterer Name Role Phone Caitlyn Bowie MD Primary Care Provider +1- [phone] Encounter Details Date Type Department Care Team (Late Contact Info) Description 01/28/2013 Scanned Document Thoracic Oncology Program at [address] [address] Solo Henry MD [address] [place] [phone] Social History Tobacco Use Types Packs/Day [...] EDT Office Visit Hematology Program at [address] - [address] [place] [address] Ronald Mills MD [address] [phone] documented as of this encounter Visit Diagnoses Not on filedocumented in this encounter Additional Health Concerns Infection Onset Date Last Indicated Resolved Time COVID-19 03/05/2022 03/05/2022 03/15/2022 7:18 PM EDT documented as of this encounter Care Teams Spring Upholsterer Relationship Specialty Start Date End Date Caitlyn Bowie MD 3400 [facility] 1 [place] [address] PCP - General Internal Medicine 05/06/21 Henry Kelly MD Pulmonary Department 175 [facility], [address] [place] [address] Physician Pulmonary Disease 09/06/17 06/22/20 documented as of this encounter
--- OUTSIDE RECORDS SUMMARY | 2024-10-23 17:52 | XMS_ITS | Encounter Summary ---
Author Organization [facility] and [facility] Address [address] [place] [address] Care Team Providers Care Sap Portal Developer Name Role Phone Caitlyn Bowie MD Primary Care Provider +1- [phone] Encounter Details Date Type Department Care Team (Late st Contact Info) Description 04/18/2013 Documentation Hematology Program at [address] [address] Isis Ragland RN Social History Tobacco Use [...] EDT Office Visit Hematology Program at [address] [address] Ronald Mills MD [address] [place] [phone] documented as of this encounter Visit Diagnoses Not on filedocumented in this encounter Additional Health Concerns Infection Onset Date Last Indicated Resolved Time COVID-19 03/05/2022 03/05/2022 03/15/2022 7:18 PM EDT documented as of this encounter Care Teams Sap Portal Developer Relationship Specialty Start Date End Date Caitlyn Bowie MD 3400 [facility] 1 [place] [address] PCP - General Internal Medicine 05/06/21 Henry Kelly MD Pulmonary Department [address] [place] [address], [address] [place] [address] Physician Pulmonary Disease 09/06/17 06/22/20 documented as of this encounter
--- OUTSIDE RECORDS SUMMARY | 2024-10-23 17:52 | XMS_ITS | Encounter Summary ---
Author Organization [facility] and [facility] Address [address] [place] [address] Care Team Providers Care Parking Meter Servicer Name Role Phone Caitlyn Bowie MD Primary Care Provider +1- [phone] Encounter Details Date Type Department Care Team (Late st Contact Info) Description 04/27/2017 Scanned Document [facility] Health Information Management [address] [place] [address] External, Provider Social History Tobacco Use Types [...] Office Visit [facility] at [address] - [address] [place] [address] Ronald Mills MD [address] [place] [phone] documented as of this encounter Visit Diagnoses Not on filedocumented in this encounter Additional Health Concerns Infection Onset Date Last Indicated Resolved Time COVID-19 03/05/2022 03/05/2022 03/15/2022 7:18 PM EDT documented as of this encounter Care Teams Parking Meter Servicer Relationship Specialty Start Date End Date Caitlyn Bowie MD 3400 [facility] 1 [place] [address] PCP - General Internal Medicine 05/06/21 Henry Kelly MD Pulmonary Department 175 [facility], [address] [place] [address] Physician Pulmonary Disease 09/06/17 06/22/20 documented as of this encounter
--- OUTSIDE RECORDS SUMMARY | 2024-10-23 17:52 | XMS_ITS | Encounter Summary ---
Author Organization [facility] and [facility] Address [address] [place] [address] Care Team Providers Care Label Press Operator Name Role Phone Caitlyn Bowie MD Primary Care Provider +1- [phone] Encounter Details Date Type Department Care Team (Late st Contact Info) Description 06/27/2019 Scanned Document Onco-Oncology Program at [address] [address] Norma Renee MD [address] [place] [phone] Social History Tobacco Use Types Packs/Day [...] EDT Office Visit Hematology Program at [address] - [address] [place] [address] Ronald Mills MD [address] [phone] documented as of this encounter Visit Diagnoses Not on filedocumented in this encounter Additional Health Concerns Infection Onset Date Last Indicated Resolved Time COVID-19 03/05/2022 03/05/2022 03/15/2022 7:18 PM EDT Assessment Noted Time PHQ-9 Depression Total Score: 2 11/07/19 19 2:06 PM EDT documented as of this encounter Care Teams Label Press Operator Relationship Specialty Start Date End Date Caitlyn Bowie MD 3400 [facility] 1 [place] [address] PCP - General Internal Medicine 05/06/21 Henry Kelly MD Pulmonary Department 175 [facility], [address] [place] [address] Physician Pulmonary Disease 09/06/17 06/22/20 documented as of this encounter
--- OUTSIDE RECORDS SUMMARY | 2024-10-23 17:52 | XMS_ITS | Encounter Summary ---
Author Organization [facility] and [facility] Address [address] [place] [place] [address] Care Team Providers Care Deputy Juvenile Officer Name Role Phone Caitlyn Bowie MD Primary Care Provider +1- [phone] Encounter Details Date Type Department Care Team (Late st Contact Info) Description 02/02/2017 Scanned Document [facility] Health Information Management [address] [place] [address] External, Provider Social History Tobacco Use Types [...] Hematology Program at [address] - [address] [place] [address] Ronald Mills MD [address] [place] [phone] documented as of this encounter Visit Diagnoses Not on filedocumented in this encounter Additional Health Concerns Infection Onset Date Last Indicated Resolved Time COVID-19 03/05/2022 03/05/2022 03/15/2022 7:18 PM EDT documented as of this encounter Care Teams Deputy Juvenile Officer Relationship Specialty Start Date End Date Caitlyn Bowie MD 3400 [facility] 1 [place] [address] PCP - General Internal Medicine 05/06/21 Henry Kelly MD Pulmonary Department 175 [facility], [address] [place] [address] Physician Pulmonary Disease 09/06/17 06/22/20 documented as of this encounter
--- OUTSIDE RECORDS SUMMARY | 2024-10-23 17:52 | XMS_ITS | Encounter Summary ---
Author Organization [facility] and [facility] Address [address] [place] [address] Care Team Providers Care Component Assembler Name Role Phone Caitlyn Bowie MD Primary Care Provider +1- [phone] Encounter Details Date Type Department Care Team (Late Contact Info) Description 09/09/2020 Scanned Document [facility] Health Information Management [address] [place] [address] External, Provider Social History Tobacco Use Types [...] Office Visit [facility] at [address] - [address] [place] [address] Ronadl Mills MD [address] [place] [phone] documented as of this encounter Procedures [...] documented as of this encounter Care Teams Component Assembler Relationship Specialty Start Date End Date Caitlyn Bowie MD [address] [address] PCP - General Internal Medicine 05/06/21 documented as of this encounter
--- OUTSIDE RECORDS SUMMARY | 2024-10-23 17:52 | XMS_ITS | Encounter Summary ---
Author Organization [facility] and [facility] Address [address] [place] [address] Care Team Providers Care Electrician Journeyman Wireman Name Role Phone Caitlyn Bowie MD Primary Care Provider +1- [phone] Encounter Details Date Type Department Care Team (Late st Contact Info) Description 02/20/2017 Scanned Document [facility] Health Information Management [address] [place] [address] External, Provider Social History Tobacco Use Types [...] EDT Office Visit [facility] at [address] - [address] [place] [address] Ronald Mills MD [address] [place] [phone] documented as of this encounter Procedures [...] as of this encounter Care Teams Electrician Journeyman Wireman Relationship Specialty Start Date End Date Caitlyn Bowie MD [facility]0 [facility] 1 [place] [address] PCP - General Internal Medicine 05/06/21 Henry Kelly MD Pulmonary Department 175 [facility], [address] [place] [address] Physician Pulmonary Disease 09/06/17 06/22/20 documented as of this encounter
--- OUTSIDE RECORDS SUMMARY | 2024-10-23 17:52 | XMS_ITS | Clinical Summary ---
Author Organization [facility] Address [address] [place] [address] Care Team Providers Care Systems Software Designer Name Role Phone Brennan Burnett MD Primary Care Provider [phone] Allergies Active Allergy Reactions Criticality Noted Date [...] age to complete this topic Care Teams Systems Software Designer Relationship Specialty Start Date End Date Brennan Burnett MD [address] [place] [address] PCP - General Internal Medicine 07/06/20
--- OUTSIDE RECORDS SUMMARY | 2024-10-23 17:52 | XMS_ITS | Encounter Summary ---
Author Organization [facility] and [facility] Address [address] [place] [address] Care Team Providers Care Court Manager Name Role Phone Caitlyn Bowie MD Primary Care Provider +1- [phone] Encounter Details Date Type Department Care Team (Late Contact Info) Description 09/16/2020 Scanned Document [facility] Health Information Management [address] [place] [address] External, Provider Social History Tobacco Use Types [...] EDT Office Visit [facility] at [address] - [address] [place] [address] Ronald Mills MD [address] [place] [phone] documented as of this encounter Procedures [...] documented as of this encounter Care Teams Court Manager Relationship Specialty Start Date End Date Caitlyn Bowie MD [facility] [address] [address] PCP - General Internal Medicine 05/06/21 documented as of this encounter
--- OUTSIDE RECORDS SUMMARY | 2024-10-23 17:52 | XMS_ITS | Encounter Summary ---
Author Organization [facility] and [facility] Address [address] [place] [address] Care Team Providers Care Boomboat Operator Name Role Phone Caitlyn Bowie MD Primary Care Provider +1- [phone] Encounter Details Date Type Department Care Team (Late Contact Info) Description 09/15/2020 Scanned Document [facility] Health Information Management [address] [place] [address] External, Provider Social History Tobacco Use Types [...] EDT Office Visit [facility] at [address] - [address] [place] [address] Ronald Mills MD [address] [place] [phone] documented as of this encounter Procedures [...] documented as of this encounter Care Teams Boomboat Operator Relationship Specialty Start Date End Date Caitlyn Bowie MD [address] [address] PCP - General Internal Medicine 05/06/21 documented as of this encounter
--- OUTSIDE RECORDS SUMMARY | 2024-10-23 17:52 | XMS_ITS | Encounter Summary ---
Author Organization [facility] and [facility] Address [address] [place] [address] Care Team Providers Care Health Evaluator Name Role Phone Caitlyn Bowie MD Primary Care Provider +1- [phone] Encounter Details Date Type Department Care Team (Late st Contact Info) Description 06/27/2019 Scanned Document [facility] at [address] [address] Norma Renee MD [address] [place] [phone] Social History Tobacco Use Types Packs/Day [...] EDT Office Visit Hematology Program at [address] - [address] [place] [address] Ronald Mills MD [address] [phone] documented as of this encounter Visit Diagnoses Not on filedocumented in this encounter Additional Health Concerns Infection Onset Date Last Indicated Resolved Time COVID-19 03/05/2022 03/05/2022 03/15/2022 7:18 PM EDT Assessment Noted Time PHQ-9 Depression Total Score: 2 11/07/19 19 2:06 PM EDT documented as of this encounter Care Teams Health Evaluator Relationship Specialty Start Date End Date Caitlyn Bowie MD 3400 [facility] 1 [place] [address] PCP - General Internal Medicine 05/06/21 Henry Kelly MD Pulmonary Department 175 [facility], [address] [place] [address] Physician Pulmonary Disease 09/06/17 06/22/20 documented as of this encounter
--- OUTSIDE RECORDS SUMMARY | 2024-10-23 17:52 | XMS_ITS | Encounter Summary ---
Author Organization [facility] and [facility] Address [address] [place] [address] Care Team Providers Care Manager Real Estate Name Role Phone Caitlyn Bowie MD Primary Care Provider +1- [phone] Encounter Details Date Type Department Care Team (Late Contact Info) Description 09/16/2020 Scanned Document [facility] Health Information Management [address] [place] [address] External, Provider Social History Tobacco Use Types [...] Office Visit [facility] at [address] - [address] [place] [address] Ronald Mills MD [address] [place] [phone] documented as of this encounter Procedures [...] as of this encounter Care Teams Manager Real Estate Relationship Specialty Start Date End Date Caitlyn Bowie MD [address] [address] PCP - General Internal Medicine 05/06/21 documented as of this encounter
--- OUTSIDE RECORDS SUMMARY | 2024-10-23 17:52 | XMS_ITS | Encounter Summary ---
Author Organization [facility] and [facility] Address [address] [place] [address] Care Team Providers Care Manager Clinical Services Name Role Phone Caitlyn Bowie MD Primary Care Provider +1- [phone] Encounter Details Date Type Department Care Team (Late st Contact Info) Description 12/16/2016 Scanned Document [facility] Health Information Management [address] [place] [address] External, Provider Social History Tobacco Use Types [...] EDT Office Visit [facility] at [address] - [address] [place] [address] Ronald Mills MD [address] [place] [phone] documented as of this encounter Procedures [...] as of this encounter Care Teams Manager Clinical Services Relationship Specialty Start Date End Date Caitlyn Bowie MD 3400 [facility] 1 [place] [address] PCP - General Internal Medicine 05/06/21 Henry Kelly MD Pulmonary Department 175 [facility], [address] [place] [address] Physician Pulmonary Disease 09/06/17 06/22/20 documented as of this encounter
--- OUTSIDE RECORDS SUMMARY | 2024-10-23 17:52 | XMS_ITS | Encounter Summary ---
Author Organization [facility] and [facility] Address [address] [place] [address] Care Team Providers Care Induction Coordination Power Engineer Name Role Phone Caitlyn Bowie MD Primary Care Provider +1- [phone] Encounter Details Date Type Department Care Team (Late st Contact Info) Description 03/01/2017 Scanned Document Onco-Oncology Program at [address] [address] Norma Renee MD [address] [place] [address] 2 [place] [address] Social History Tobacco Use Types [...] EDT Office Visit Hematology Program at [address] - [address] [place] [address] Ronald Mills MD [address] [phone] documented as of this encounter Visit Diagnoses Not on filedocumented in this encounter Additional Health Concerns Infection Onset Date Last Indicated Resolved Time COVID-19 03/05/2022 03/05/2022 03/15/2022 7:18 PM EDT documented as of this encounter Care Teams Induction Coordination Power Engineer Relationship Specialty Start Date End Date Caitlyn Bowie MD 3400 [facility] Max 1 [place] [address] PCP - General Internal Medicine 05/06/21 Henry Kelly MD Pulmonary Department 175 [facility], [address] [place] [address] Physician Pulmonary Disease 09/06/17 06/22/20 documented as of this encounter
--- OUTSIDE RECORDS SUMMARY | 2024-10-23 17:52 | XMS_ITS | Encounter Summary ---
Author Organization [facility] and [facility] Address [address] [place] [address] Care Team Providers Care Cello Teacher Name Role Phone Caitlyn Bowie MD Primary Care Provider +1- [phone] Encounter Details Date Type Department Care Team (Late st Contact Info) Description 04/26/2017 Scanned Document Cardiovascular Medicine at [address] [place] [address] System, Provider Not In Social History Tobacco [...] PM EDT Office Visit Hematology Program at [address] [address] Ronald Mills MD [address] [place] [phone] documented as of this encounter Procedures [...] documented as of this encounter Care Teams Cello Teacher Relationship Specialty Start Date End Date Caitlyn Bowie MD 3400 [facility] 1 [place] [address] PCP - General Internal Medicine 05/06/21 Henry Kelly MD Pulmonary Department 175 [facility], [address] [place] [address] Physician Pulmonary Disease 09/06/17 06/22/20 documented as of this encounter
--- OUTSIDE RECORDS SUMMARY | 2024-10-23 17:52 | XMS_ITS | Encounter Summary ---
Author Organization [facility] and [facility] Address [address] [place] [address] Care Team Providers Care Vessel Slag Worker Name Role Phone Caitlyn Bowie MD Primary Care Provider +1- [phone] Encounter Details Date Type Department Care Team (Latest Contact Info) Description 04/15/2013 Transcribed Orders [facility] [address] [place], [place] [address] Tian Atwood MD [address] [address] Unspecified hypothyroidism (Primary Dx) Social [...] Office Visit [facility] at [address] - [address] [phone] Ronald Mills MD [address] [phone] documented as of this encounter Results * Copper, serum total ([facility]) (04/15/2013 4:31 PM EDT) Copper, Serum Total SEE BELOW [facility] Comment: Test ?Result ? Flag ??Unit ?RefValue Copper, S ? 1.35 ? mcg/mL ??0.75-1.45 04/15/2013 4:31 PM EDT us Tian Atwood MD LAB BLOOD ORDERABLES Final R esult [facility] [address] [place] [address] documented in this encounter Visit Diagnoses Diagnosis Unspecified hypothyroidism- Primary documented in this encounter Additional Health Concerns Infection Onset Date Last Indicated Resolved Time COVID-19 03/05/2022 03/05/2022 03/15/2022 7:18 PM EDT documented as of this encounter Care Teams Vessel Slag Worker Relationship Specialty Start Date End Date Caitlyn Bowie MD 3400 [facility] 1 [place] [address] PCP - General Internal Medicine 05/06/21 Henry Kelly MD Pulmonary Department 175 [facility], [address] [place] [address] Physician Pulmonary Disease 09/06/17 06/22/20 documented as of this encounter
--- OUTSIDE RECORDS SUMMARY | 2024-10-23 17:52 | XMS_ITS | Encounter Summary ---
Author Organization [facility] and [facility] Address [address] [place] [address] Care Team Providers Care Etl Software Engineer Name Role Phone Caitlyn Bowie MD Primary Care Provider +1- [phone] Encounter Details Date Type Department Care Team (Late st Contact Info) Description 07/26/2012 Abstract [facility] Health Information Management [address] [place] [address] [place], Primary Care [address] [place] [address] Social History Tobacco Use Types Packs/Day Years [...] Office Visit [facility] at [address] - [address] [facility] [place] [facility] [place] [address] Ronald Mills MD 240 [facility] A1 [place] [address] documented as of this encounter Visit Diagnoses Not on filedocumented in this encounter Additional Health Concerns Infection Onset Date Last Indicated Resolved Time COVID-19 03/05/2022 03/05/2022 03/15/2022 7:18 PM EDT documented as of this encounter Care Teams Etl Software Engineer Relationship Specialty Start Date End Date Caitlyn Bowie MD 3400 [facility] 1 [place] [address] PCP - General Internal Medicine 05/06/21 Henry Kelly MD Pulmonary Department 175 [facility], [address] [place] [address] Physician Pulmonary Disease 09/06/17 06/22/20 documented as of this encounter
--- OUTSIDE RECORDS SUMMARY | 2024-10-23 17:52 | XMS_ITS | Encounter Summary ---
Author Organization [facility] Address [address] [place] [address] Care Team Providers Care Hangersmith Name Role Phone Caitlyn Bowie MD Primary Care Provider +1- [phone] Encounter Details Date Type Department Care Team (Late st Contact Info) Description 12/19/2016 Scanned Document [facility] Health Information Management [address] [place] [address] External, Provider Social History Tobacco Use Types [...] Office Visit [facility] at [address] - [address] [place] [address] Ronald Mills MD [address] [place] [phone] documented as of this encounter Procedures [...] documented as of this encounter Care Teams Hangersmith Relationship Specialty Start Date End Date Caitlyn Bowie MD 3400 [facility] 1 [place] [address] PCP - General Internal Medicine 05/06/21 Henry Kelly MD Pulmonary Department 175 [facility], [address] [place] [address] Physician Pulmonary Disease 09/06/17 06/22/20 documented as of this encounter
--- OUTSIDE RECORDS SUMMARY | 2024-10-23 17:52 | XMS_ITS | Encounter Summary ---
Author Organization [facility] and [facility] Address [address] [place] [address] Care Team Providers Care Internal Controls Manager Name Role Phone Caitlyn Bowie MD Primary Care Provider +1- [phone] Encounter Details Date Type Department Care Team (Late Contact Info) Description 09/17/2020 Scanned Document [facility] Health Information Management [address] [place] [address] External, Provider Social History Tobacco Use Types [...] Office Visit [facility] at [address] - [address] [place] [address] Ronald Mills MD [address] [place] [phone] documented as of this encounter Procedures [...] as of this encounter Care Teams Internal Controls Manager Relationship Specialty Start Date End Date Caitlyn Bowie MD [address] [address] PCP - General Internal Medicine 05/06/21 documented as of this encounter
--- OUTSIDE RECORDS SUMMARY | 2024-10-23 17:52 | XMS_ITS | Encounter Summary ---
Author Organization [facility] and [facility] Address [address] [place] [address] Care Team Providers Care Montessori Paraprofessional Name Role Phone Caitlyn Bowie MD Primary Care Provider +1- [phone] Encounter Details Date Type Department Care Team (Late st Contact Info) Description 12/03/2019 Scanned Document [facility] Health Information Management [address] [place] [address] External, Provider Social History Tobacco Use Types [...] Office Visit [facility] at [address] - [address] [place] [address] Ronald Mills MD [address] [place] [phone] documented as of this encounter Visit Diagnoses Not on filedocumented in this encounter Additional Health Concerns Infection Onset Date Last Indicated Resolved Time COVID-19 03/05/2022 03/05/2022 03/15/2022 7:18 PM EDT Assessment Noted Time PHQ-9 Depression Total Score: 2 11/07/19 19 2:06 PM EDT documented as of this encounter Care Teams Montessori Paraprofessional Relationship Specialty Start Date End Date Caitlyn Bowie MD [address] [facility] 1 [place] [address] PCP - General Internal Medicine 05/06/21 Henry Kelly MD Pulmonary Department 175 [facility], [address] [place] [address] Physician Pulmonary Disease 09/06/17 06/22/20 documented as of this encounter
--- OUTSIDE RECORDS SUMMARY | 2024-10-23 17:52 | XMS_ITS | Encounter Summary ---
Author Organization [facility] and [facility] Address [address] [place] [address] Care Team Providers Care Bisque Finisher Name Role Phone Caitlyn Bowie MD Primary Care Provider +1- [phone] Encounter Details Date Type Department Care Team (Late Contact Info) Description 08/16/2012 Abstract [facility] Health Information Management [address] [place] [address] [place], Primary Care [address] [place] [address] Social History Tobacco Use Types Packs/Day Years [...] EDT Office Visit [facility] at [address] - [address] [place] [address] Ronald Mills MD [address] [place] [address] documented as of this encounter Visit Diagnoses Not on filedocumented in this encounter Additional Health Concerns Infection Onset Date Last Indicated Resolved Time COVID-19 03/05/2022 03/05/2022 03/15/2022 7:18 PM EDT documented as of this encounter Care Teams Bisque Finisher Relationship Specialty Start Date End Date Caitlyn Bowie MD 3400 [facility] 1 [place] [address] PCP - General Internal Medicine 05/06/21 Henry Kelly MD Pulmonary Department [address] [place] [address], [address] [place] [address] Physician Pulmonary Disease 09/06/17 06/22/20 documented as of this encounter
--- OUTSIDE RECORDS SUMMARY | 2024-10-23 17:52 | XMS_ITS | Encounter Summary ---
Author Organization [facility] and [facility] Address [address] [place] [address] Care Team Providers Care Manager Export Name Role Phone Caitlyn Bowie MD Primary Care Provider +1- [phone] Encounter Details Date Type Department Care Team (Late st Contact Info) Description 06/27/2019 Scanned Document Onco-Oncology Program at [address] [address] Norma Renee MD [address] [place] [address] Social History Tobacco Use Types Packs/Day [...] PM EDT Office Visit Hematology Program at [address] - [address] [place] [address] Ronald Mills MD [address] [phone] documented as of this [...] Bowie MD 3400 [facility] 1 [place] [address] PCP - General Internal Medicine 05/06/21 Henry Kelly MD Pulmonary Department 175 [facility], [address] [place] [address] Physician Pulmonary Disease 09/06/17 06/22/20 documented as of this encounter
--- OUTSIDE RECORDS SUMMARY | 2024-10-23 17:52 | XMS_ITS | Encounter Summary ---
Author Organization [facility] and [facility] Address [address] [place] [address] Care Team Providers Care Plating And Point Assembly Supervisor Name Role Phone Caitlyn Bowie MD Primary Care Provider +1- [phone] Encounter Details Date Type Department Care Team (Late st Contact Info) Description 07/01/2019 Scanned Document Onco-Oncology Program at [address] [address] Norma Renee MD [address] [place] [address] Social History Tobacco Use Types Packs/Day [...] EDT Office Visit Hematology Program at [address] - [address] [place] [address] Ronald Mills MD [address] [phone] documented as of this encounter Visit Diagnoses Not on filedocumented in this encounter Additional Health Concerns Infection Onset Date Last Indicated Resolved Time COVID-19 03/05/2022 03/05/2022 03/15/2022 7:18 PM EDT Assessment Noted Time PHQ-9 Depression Total Score: 2 11/07/19 19 2:06 PM EDT documented as of this encounter Care Teams Plating And Point Assembly Supervisor Relationship Specialty Start Date End Date Caitlyn Bowie MD 3400 [facility] 1 [place] [address] PCP - General Internal Medicine 05/06/21 Henry Kelly MD Pulmonary Department 175 [facility], [address] [place] [address] Physician Pulmonary Disease 09/06/17 06/22/20 documented as of this encounter
--- OUTSIDE RECORDS SUMMARY | 2024-10-23 17:52 | XMS_ITS | Encounter Summary ---
Author Organization [facility] Address [address] [place] [address] Care Team Providers Care Office Machine Mechanic Name Role Phone Caitlyn Bowie MD Primary Care Provider +1- [phone] Encounter Details Date Type Department Care Team (Late st Contact Info) Description 01/22/2020 Scanned Document Lab for [facility] [address] [place] [address] Kerwin Menjivar MD 260 [facility] 3 [place] [address] Social History Tobacco Use Types [...] [facility] Visit [facility] at [address] [place], [place] [address] Ronald Mills MD [address] [phone] documented as of this encounter Visit Diagnoses Not on filedocumented in this encounter Additional Health Concerns Infection Onset Date Last Indicated Resolved Time COVID-19 03/05/2022 03/05/2022 03/15/2022 7:18 PM EDT Assessment Noted Time PHQ-9 Depression Total Score: 2 11/07/19 19 2:06 PM EDT documented as of this encounter Care Teams Office Machine Mechanic Relationship Specialty Start Date End Date Caitlyn Bowie MD 3400 [facility] 1 [place] [address] PCP - General Internal Medicine 05/06/21 Henry Kelly MD Pulmonary Department [address] [place] [address], [address] [place] [address] Physician Pulmonary Disease 09/06/17 06/22/20 documented as of this encounter
--- OUTSIDE RECORDS SUMMARY | 2024-10-23 17:52 | XMS_ITS | Encounter Summary ---
Author Organization [facility] and [facility] Address [address] [place] [address] Care Team Providers Care Webmethods Consultant Name Role Phone Caitlyn Bowie MD Primary Care Provider +1- [phone] Encounter Details Date Type Department Care Team (Late st Contact Info) Description 12/16/2016 Scanned Document [facility] Health Information Management [address] [place] [address] External, Provider Social History Tobacco Use Types [...] Office Visit [facility] at [address] - [address] [place] [address] Ronald Mills MD [address] [place] [phone] documented as of this encounter Visit Diagnoses Not on filedocumented in this encounter Additional Health Concerns Infection Onset Date Last Indicated Resolved Time COVID-19 03/05/2022 03/05/2022 03/15/2022 7:18 PM EDT documented as of this encounter Care Teams Webmethods Consultant Relationship Specialty Start Date End Date Caitlyn Bowie MD 34[address] [facility] 1 [place] [address] PCP - General Internal Medicine 05/06/21 Henry Kelly MD Pulmonary Department 175 [facility], [address] [place] [address] Physician Pulmonary Disease 09/06/17 06/22/20 documented as of this encounter
--- OUTSIDE RECORDS SUMMARY | 2024-10-23 17:52 | XMS_ITS | Encounter Summary ---
Author Organization [facility] and [place] [facility] Address [address] [place] [address] Care Team Providers Care Concrete Building Assembler Name Role Phone Caitlyn Bowie MD Primary Care Provider +1- [phone] Encounter Details Date Type Department Care Team (Late Contact Info) Description 01/28/2013 Scanned Document [facility] at [address] [address] Solo Henry MD [address] [place] [address] Social History Tobacco Use Types Packs/Day [...] EDT Office Visit Hematology Program at [address] - [address] [place] [address] Ronald Mills MD [address] [phone] documented as of this encounter Visit Diagnoses Not on filedocumented in this encounter Additional Health Concerns Infection Onset Date Last Indicated Resolved Time COVID-19 03/05/2022 03/05/2022 03/15/2022 7:18 PM EDT documented as of this encounter Care Teams Concrete Building Assembler Relationship Specialty Start Date End Date Caitlyn Bowie MD 3400 [facility] 1 [place] [address] PCP - General Internal Medicine 05/06/21 Henry Kelly MD Pulmonary Department 175 [facility], [address] [place] [address] Physician Pulmonary Disease 09/06/17 06/22/20 documented as of this encounter
--- OUTSIDE RECORDS SUMMARY | 2024-10-23 17:52 | XMS_ITS | Encounter Summary ---
Author Organization [facility] and [facility] Address [address] [place] [address] Care Team Providers Care Borderer Name Role Phone Caitlyn Bowie MD Primary Care Provider +1- [phone] Encounter Details Date Type Department Care Team (Late st Contact Info) Description 11/29/2019 Scanned Document [facility] Health Information Management [address] [place] [address] External, Provider Social History Tobacco Use Types [...] Office Visit [facility] at [address] - [address] [place] [address] Ronald Mills MD [address] [place] [phone] documented as of this encounter Procedures [...] documented as of this encounter Care Teams Borderer Relationship Specialty Start Date End Date Caitlyn Bowie MD 3400 [facility] 1 [place] [address] PCP - General Internal Medicine 05/06/21 Henry Kelly MD Pulmonary Department 175 [facility], [address] [place] [address] Physician Pulmonary Disease 09/06/17 06/22/20 documented as of this encounter
--- OUTSIDE RECORDS SUMMARY | 2024-10-23 17:52 | XMS_ITS | Encounter Summary ---
Author Organization [facility] and [facility] Address [address] [place] [address] Care Team Providers Care Bundle Collector Name Role Phone Caitlyn Bowie MD Primary Care Provider +1- [phone] Encounter Details Date Type Department Care Team (Late Contact Info) Description 08/29/2019 Scanned Document [facility] at [address] [address] External, Provider Social History Tobacco Use Types [...] EDT Office Visit Hematology Program at [address] - [address] [place], [place] [address] Ronald Mills MD [address] [place] [phone] documented as of this encounter Procedures [...] documented as of this encounter Care Teams Bundle Collector Relationship Specialty Start Date End Date Caitlyn Bowie MD 3400 [facility] 1 [place] [address] PCP - General Internal Medicine 05/06/21 Henry Kelly MD Pulmonary Department 175 [facility], [address] [place] [address] Physician Pulmonary Disease 09/06/17 06/22/20 documented as of this encounter
[2024-10-23 17:53] LABS: D Dimer High Sensitivity 321 NG/ML
--- OUTSIDE RECORDS SUMMARY | 2024-10-23 17:53 | XMS_ITS | Encounter Summary ---
Author Organization [facility] and [facility] Address [address] [place] [address] Care Team Providers Care Humane Officer Name Role Phone Caitlyn Bowie MD Primary Care Provider +1- [phone] Encounter Details Date Type Department Care Team (Late st Contact Info) Description 11/29/2017 Scanned Document [facility] Health Information Management [address] [place] [address] External, Provider Social History Tobacco Use Types [...] EDT Office Visit [facility] at [address] [place] [address] Ronald Mills MD [address] [place] [phone] documented as of this encounter Procedures [...] documented as of this encounter Care Teams Humane Officer Relationship Specialty Start Date End Date Caitlyn Bowie MD 3400 [facility] Max 1 [place] [address] PCP - General Internal Medicine 05/06/21 Henry Kelly MD Pulmonary Department 175 [facility], [address] [place] [address] Physician Pulmonary Disease 09/06/17 06/22/20 documented as of this encounter
--- OUTSIDE RECORDS SUMMARY | 2024-10-23 17:53 | XMS_ITS | Encounter Summary ---
Author Organization [facility] Address [address] [place] [address] Care Team Providers Care Vest Presser Name Role Phone Caitlyn Bowie MD Primary Care Provider +1- [phone] Encounter Details Date Type Department Care Team (Late st Contact Info) Description 02/24/2021 Scanned Document INTERFACE DEFAULT [address] [place] [address] System, Provider Not In Social History Tobacco [...] Office Visit [facility] at [address] - [address] [place] [address] Ronald Mills MD [address] [place] [phone] documented as of this encounter Procedures [...] documented as of this encounter Care Teams Vest Presser Relationship Specialty Start Date End Date Caitlyn Bowie MD [address] [address] PCP - General Internal Medicine 05/06/21 documented as of this encounter
--- OUTSIDE RECORDS SUMMARY | 2024-10-23 17:53 | XMS_ITS | Encounter Summary ---
Author Organization [facility] and [facility] Address [address] [place] [address] Care Team Providers Care Dyer Helper Name Role Phone Caitlyn Bowie MD Primary Care Provider +1- [phone] Encounter Details Date Type Department Care Team (Late st Contact Info) Description 03/11/2021 Scanned Document INTERFACE DEFAULT [address] [place] [address] System, Provider Not In Social History Tobacco [...] EDT Office Visit [facility] at [address] - [address] [place] [address] Ronald Mills MD [address] [place] [phone] documented as of this encounter Procedures [...] documented as of this encounter Care Teams Dyer Helper Relationship Specialty Start Date End Date Caitlyn Bowie MD [address] [address] PCP - General Internal Medicine 05/06/21 documented as of this encounter
--- OUTSIDE RECORDS SUMMARY | 2024-10-23 17:53 | XMS_ITS | Encounter Summary ---
Author Organization [facility] and [facility] Address [address] [place] [address] Care Team Providers Care Roof Bolter Helper Name Role Phone Caitlyn Bowie MD Primary Care Provider +1- [phone] Encounter Details Date Type Department Care Team (Late st Contact Info) Description 03/14/2021 Scanned Document INTERFACE DEFAULT [address] [place] [address] System, Provider Not In Social History Tobacco [...] Office Visit [facility] at [address] - [address] [place] [address] Ronald Mills MD [address] [place] [phone] documented as of this encounter Procedures [...] documented as of this encounter Care Teams Roof Bolter Helper Relationship Specialty Start Date End Date Caitlyn Bowie MD [facility] [address] [address] PCP - General Internal Medicine 05/06/21 documented as of this encounter
--- OUTSIDE RECORDS SUMMARY | 2024-10-23 17:53 | XMS_ITS | Encounter Summary ---
Author Organization [facility] and [facility] Address [address] [place] [address] Care Team Providers Care Swatcher Name Role Phone Caitlyn Bowie MD Primary Care Provider +1- [phone] Encounter Details Date Type Department Care Team (Late st Contact Info) Description 04/11/2021 Scanned Document INTERFACE DEFAULT [address] [place] [address] System, Provider Not In Social History Tobacco [...] Office Visit [facility] at [address] - [address] [place] [address] Ronald Mills MD [address] [place] [phone] documented as of this encounter Procedures [...] documented as of this encounter Care Teams Swatcher Relationship Specialty Start Date End Date Caitlyn Bowie MD [address] [address] PCP - General Internal Medicine 05/06/21 documented as of this encounter
--- OUTSIDE RECORDS SUMMARY | 2024-10-23 17:53 | XMS_ITS | Clinical Summary ---
Author Organization [address] Address 20 [place] [address] Phone Care Team Providers Care C Application Developer Name Role Phone Caitlyn Bowie MD Primary Care Provider +1- [phone] Allergies Active Allergy Reactions Criticality Noted Date [...] spontaneous,EIC (epidermal inclusion cyst),Dermatitis,So lar purpura (HC Code),Seborrheic keratoses,Itch Apply topically 2 (two) [...] Pulmonary embolism 03/18/2013 Deep vein thrombosis (DVT) 03/18/2013 Bleeding 03/18/2013 Factor V Leiden 03/18/2013 Dyspnea on exertion KANDY on CPAP Exposed to tobacco smoke by family members smoki indoors Bronchiectasis COPD (chronic obstructive pulmonary disease) Mildly restrictive lung disease Resolved Problems Problem Noted Date Diagnosed Date Resolved Date KANDY (obstructive sleep apnea) 11/21/2016 01/22/2018 Carotid stenosis, asymptomatic, right 09/18/2015 06/10/2016 Encounters Date Type Department Care Team Description 10/23/2024 Orders Only Hematology Program at [facility] 20 [facility] - [address] [place] [address] Ronald Mills MD VTE (venous thromboembolism) (Primary Dx); Antiphospholipid antibody syndrome (HC Code); Elevated homocysteine; Abnormal gamma globulin level; Feeding difficulties, unspecified 10/23/2024 Telephone Cancer Center at [address] [address] Ronald Mills MD Labs Only 10/22/2024 Telephone Hematology Program at [facility] 35 [facility] [place] [address] Ronald Mills MD Other 10/18/2024 10:30 AM EDT Office Visit [facility] [address] [address] Alfredo Michaud Jr., EMELIA KANDY (obstructive sleep apnea) (Primary Dx); Fatigue, unspecified type; Excessive daytime sleepiness; MCI (mild cognitive impairment) with memory loss 09/30/2024 Orders Only [facility] [address] [place] [address] Adalgisa Whitney MD KANDY (obstructive sleep apnea) 09/30/2024 Orders Only [facility] [address] [place] [address] Adalgisa Whitney MD KANDY (obstructive sleep apnea) (Primary Dx) 09/24/2024 Telephone [facility] 35 [facility] [address] [place] [address] Ronald Mills MD Triage; Results 09/23/2024 Scanned Document INTERFACE DEFAULT 20 [place] [address] System, Provider Not In 09/15/2024 Scanned Document INTERFACE DEFAULT 20 [place] [address] System, Provider Not In 09/09/2024 Scanned Document INTERFACE DEFAULT 20 [place] [address] System, Provider Not In 08/30/2024 Abstract [facility] [address] [place] [address] Adalgisa Whitney MD 08/08/2024 Scanned Document INTERFACE DEFAULT 20 [place] [address] System, Provider Not In from Last 3 [...] EDT Inhaled Oxygen Concentration - - Weight 56.7 kg (125 lb) 10/18/2024 11:05 AM EDT Height 157.5 cm (5' 2 ) 10/18/2024 11:05 AM EDT Body Mass Index 22.86 10/18/2024 11:05 AM EDT Plan of Treatment Upcoming Encounters Date Type Department Care Team (Late st Contact Info) Description 10/31/2024 1:00 PM EDT Office Visit [facility] at [address], [place] [address] Ronald Mills MD [address] [phone] Health Maintenance Due Date Last Done [...] - 144 mmol/L 04/05/2022 1:43 PM EDT [facility] DEPARTMENT OF LABORATORY MEDICINE [facility] Potassium 4.7 3.3 - 5.3 mmol/L 04/05/2022 1:43 PM EDT [facility] DEPARTMENT OF LABORATORY MEDICINE [facility] Chloride 100 98 - 107 mmol/L 04/05/2022 1:43 PM EDT [facility] DEPARTMENT OF LABORATORY MEDICINE [facility] CO2 30 20 - 30 mmol/L 04/05/2022 1:43 PM [facility] DEPARTMENT LABORATORY MEDICINE [facility] Anion Gap 8 7 - 17 04/05/2022 1:43 PM [facility] DEPARTMENT LABORATORY MED[facility] Glucose 115(H) 70 - 100 mg/dL 04/05/2022 1:43 PM T [facility] DEPARTMENT LABORATORY MEDICINE [facility] BUN 16 8 - 23 mg/dL 04/05/2022 1:43 PM [facility] DEPARTMENT LABORATORY [facility] Creatinine 0.89 0.40 - 1.30 mg/dL 04/05/2022 1:43 PM [facility] DEPARTMENT LABORATORY MEDICINE [facility] Calcium 10.5(H) 8.8 - 10.2 mg/dL 04/05/2022 1:43 PM [facility] DEPARTMENT LABORATORY MEDICINE [facility] BUN/Creatinine Ratio 18.0 8.0 - 23.0 03/11 1:43 PM [facility] DEPARTMENT LABORATORY MEDICINE [facility] Total Protein 7.0 6.6 - 8.7 g/dL 04/05/2022 1:43 PM [facility] DEPARTMENT OF LABORATORY MEDICINE [facility] Albumin 4.2 3.6 - 4.9 g/dL 04/05/2022 1:43 PM [facility] DEPARTMENT OF LABORATORY MEDICINE [facility] Total Bilirubin 0.6 <=1.2 mg/dL 04/05/2022 1:43 PM [facility] DEPARTMENT OF LABORATORY MEDICINE [facility] Alkaline Phosphatase 58 9 - 122 U/L 04/05/2022 1:43 PM [facility] DEPARTMENT OF LABORATORY MEDICINE [facility] Alanine Aminotransferase (ALT) 19 10 - 35 U/L 04/05/2022 1:43 PM [facility] DEPARTMENT OF LABORATORY MEDICINE [facility] Comment:Calcium dobesilate c an cause artificially low ALT results at therapeutic concentrations Aspartate Aminotransferase (AST) 26 10 - 35 U/L 04/05/2022 1:43 PM EDT [facility] DEPARTMENT OF LABORATORY MEDICINE [facility] Globulin 2.8 2.3 - 3.5 g/dL 04/05/2022 1:43 PM EDT [facility] A/G Ratio 1.5 1.0 - 2.2 04/05/2022 1:43 PM EDT [facility]IC[facility] AST/ALT Ratio 1.4 See Comment 04/05/2022 1:43 PM EDT [facility] DEPARTMENT LABORATORY MEDICINE [facility] Comment: Adult with mild elevations [...] >=60 mL/min/1.7 3m2 04/05/2022 1:43 PM EDT [facility]IC[facility] Comment:Estimated glomerular filtration rate (eGFR) [...] MD LAB BLOOD ORDERABLES Final Resul t [facility] OF LABORATORY MEDICINE [facility] [address] [place] [address], [facility] [phone] * Bone Density Result Scan (05/10/2017) us [...] MD LAB BLOOD ORDERABLES Fin al Result [facility] [address] [place] [address] * MAMMOGRAPHY REPORT (04/25/2013 6:47 AM EDT) 04/25/2013 6:47 AM EDT us Provider Not In System IMG SCAN REPORTS Final Re sult from Last 3 Months or Most Recently Relevant to Health Maintenance Insurance MEDICARE [facility] MEDICARE [facility] [place] [address] [place] [address] [facility] MEDICARE MEDICARE [facility] Advance Directives * Full ACLS (Latest Code Status on File) Date Activated Date Inactivated Comments 12/15/2018 7:13 PM 12/16/2018 6:09 PM * Full Interventions Date Activated Date Inactivated Comments 03/18/2016 6:34 PM 03/19/2016 6:40 PM Care Teams C Application Developer Relationship Specialty Start Date End Date Caitlyn Bowie MD [address] [place] [address] [address] PCP - General Internal Medicine 05/06/21
--- OUTSIDE RECORDS SUMMARY | 2024-10-23 17:53 | XMS_ITS | Encounter Summary ---
Author Organization [facility] Address [address] [place] [phone] Care Team Providers Care Director Title Name Role Phone Caitlyn Bowie MD Primary Care Provider +1- [phone] Encounter Details Date Type Department Care Team (Late st Contact Info) Description 04/21/2021 Scanned Document INTERFACE DEFAULT [address] [place] [address] System, Provider Not In Social History Tobacco [...] Office Visit [facility] at [address] - [address] [place] [address] Ronald Mills MD [address] [place] [phone] documented as of this encounter Procedures [...] as of this encounter Care Teams Director Title Relationship Specialty Start Date End Date Caitlyn Bowie MD [address] [address] PCP - General Internal Medicine 05/06/21 documented as of this encounter
--- OUTSIDE RECORDS SUMMARY | 2024-10-23 17:53 | XMS_ITS | Encounter Summary ---
Author Organization [facility] Address [address] [place] [address] Care Team Providers Care Wall Steamer Name Role Phone Caitlyn Bowie MD Primary Care Provider +1- [phone] Encounter Details Date Type Department Care Team (Late st Contact Info) Description 08/21/2017 Scanned Document [facility] Health Information Management [address] [place] [address] External, Provider Social History Tobacco Use Types [...] EDT Office Visit [facility] at [address] [place] [address] Ronald Mills MD [address] [place] [phone] documented as of this encounter Procedures [...] as of this encounter Care Teams Wall Steamer Relationship Specialty Start Date End Date Caitlyn Bowie MD 3400 [facility] Max 1 [place] [address] PCP - General Internal Medicine 05/06/21 Henry Kelly MD Pulmonary Department 175 [facility], [address] [place] [address] Physician Pulmonary Disease 09/06/17 06/22/20 documented as of this encounter
--- OUTSIDE RECORDS SUMMARY | 2024-10-23 17:53 | XMS_ITS | Encounter Summary ---
Author Organization [facility] Address [address] [place] [address] Care Team Providers Care Granite Fabricator Name Role Phone Caitlyn Bowie MD Primary Care Provider +1- [phone] Encounter Details Date Type Department Care Team (Late st Contact Info) Description 01/26/2018 Scanned Document [facility] Health Information Management [address] [place] [address] External, Provider Social History Tobacco Use Types [...] Office Visit [facility] at [address] [place] [address] Ronald Mills MD [address] [place] [phone] documented as of this encounter Visit Diagnoses Not on filedocumented in this encounter Additional Health Concerns Infection Onset Date Last Indicated Resolved Time COVID-19 03/05/2022 03/05/2022 03/15/2022 7:18 PM EDT documented as of this encounter Care Teams Granite Fabricator Relationship Specialty Start Date End Date Caitlyn Bowie MD 3400 [facility] 1 [place] [address] PCP - General Internal Medicine 05/06/21 Henry Kelly MD Pulmonary Department [address] [place] [address], [address] [place] [address] Physician Pulmonary Disease 09/06/17 06/22/20 documented as of this encounter
--- OUTSIDE RECORDS SUMMARY | 2024-10-23 17:53 | XMS_ITS | Encounter Summary ---
Author Organization [facility] Address [address] [place] [address] Care Team Providers Care Pastrycook Name Role Phone Caitlyn Bowie MD Primary Care Provider +1- [phone] Encounter Details Date Type Department Care Team (Late st Contact Info) Description 02/07/2021 Scanned Document INTERFACE DEFAULT [address] [place] [address] System, Provider Not In Social History Tobacco [...] Office Visit [facility] at [address] [place] [address] Ronald Mills MD [address] [place] [phone] documented as of this encounter Procedures [...] documented as of this encounter Care Teams Pastrycook Relationship Specialty Start Date End Date Caitlyn Bowie MD [address] [address] PCP - General Internal Medicine 05/06/21 documented as of this encounter
--- OUTSIDE RECORDS SUMMARY | 2024-10-23 17:53 | XMS_ITS | Encounter Summary ---
Author Organization [facility] and [facility] Address [address] [place] [address] Care Team Providers Care Ironing Worker Name Role Phone Caitlyn Bowie MD Primary Care Provider +1- [phone] Encounter Details Date Type Department Care Team (Late st Contact Info) Description 02/11/2021 Scanned Document INTERFACE DEFAULT [address] [place] [address] System, Provider Not In Social History Tobacco [...] [facility] Visit [facility] at [address] [place] [address] Ronald Mills MD [address] [place] [phone] documented as of this encounter Procedures [...] documented as of this encounter Care Teams Ironing Worker Relationship Specialty Start Date End Date Caitlyn Bowie MD [address] [address] PCP - General Internal Medicine 05/06/21 documented as of this encounter
--- OUTSIDE RECORDS SUMMARY | 2024-10-23 17:53 | XMS_ITS | Encounter Summary ---
Author Organization [facility] and [facility] Address [address] [place] [address] Care Team Providers Care Mill Feeder Name Role Phone Caitlyn Bowie MD Primary Care Provider +1- [phone] Encounter Details Date Type Department Care Team (Late st Contact Info) Description 04/10/2021 Scanned Document INTERFACE DEFAULT [address] [place] [address] System, Provider Not In Social History Tobacco [...] EDT Office Visit [facility] at [address] - [address] [place] [address] Ronald Mills MD [address] [place] [phone] documented as of this encounter Procedures [...] as of this encounter Care Teams Mill Feeder Relationship Specialty Start Date End Date Caitlyn Bowie MD [facility] [address] [address] PCP - General Internal Medicine 05/06/21 documented as of this encounter
--- OUTSIDE RECORDS SUMMARY | 2024-10-23 17:53 | XMS_ITS | Encounter Summary ---
Author Organization [facility] and [facility] Address [address] [place] [address] Care Team Providers Care Drill Grinder Name Role Phone Caitlyn Bowie MD Primary Care Provider +1- [phone] Encounter Details Date Type Department Care Team (Late st Contact Info) Description 03/15/2021 Scanned Document INTERFACE DEFAULT [address] [place] [address] System, Provider Not In Social History Tobacco [...] Office Visit [facility] at [address] - [address] [place] [address] Ronald Mills MD [address] [place] [phone] documented as of this encounter Procedures [...] as of this encounter Care Teams Drill Grinder Relationship Specialty Start Date End Date Caitlyn Bowie MD [address] [address] PCP - General Internal Medicine 05/06/21 documented as of this encounter
--- OUTSIDE RECORDS SUMMARY | 2024-10-23 17:53 | XMS_ITS | Encounter Summary ---
Author Organization [facility] and [facility] Address [address] [place] [address] Care Team Providers Care Aeronautical Engineering Technologist Name Role Phone Caitlyn Bowie MD Primary Care Provider +1- [phone] Encounter Details Date Type Department Care Team (Late st Contact Info) Description 10/07/2013 Scanned Document Thoracic Oncology Program at [address] [place] [address] Suzy Kong MD [address] [place] [phone] Social History Tobacco Use Types Packs/Day [...] EDT Office Visit Hematology Program at [address] - [address] [place] [address] Ronald Mills MD [address] [phone] documented as of this encounter Visit Diagnoses Not on filedocumented in this encounter Additional Health Concerns Infection Onset Date Last Indicated Resolved Time COVID-19 03/05/2022 03/05/2022 03/15/2022 7:18 PM EDT documented as of this encounter Care Teams Aeronautical Engineering Technologist Relationship Specialty Start Date End Date Caitlyn Bowie MD 3400 [facility] 1 [place] [address] PCP - General Internal Medicine 05/06/21 Henry Kelly MD Pulmonary Department [address] [facility], [address] [place] [address] Physician Pulmonary Disease 09/06/17 06/22/20 documented as of this encounter
--- OUTSIDE RECORDS SUMMARY | 2024-10-23 17:53 | XMS_ITS | Encounter Summary ---
Author Organization [facility] and [facility] Address [address] [place] [address] Care Team Providers Care Riveter Automobile Brakes Name Role Phone Caitlyn Bowie MD Primary Care Provider +1- [phone] Encounter Details Date Type Department Care Team (Late st Contact Info) Description 04/02/2021 Scanned Document INTERFACE DEFAULT [address] [place] [address] System, Provider Not In Social History Tobacco [...] [facility] Visit [facility] at [address] - [address] [place] [address] Ronald Mills MD [address] [place] [phone] documented as of this encounter Procedures [...] documented as of this encounter Care Teams Riveter Automobile Brakes Relationship Specialty Start Date End Date Caitlyn Bowie MD [address] [address] PCP - General Internal Medicine 05/06/21 documented as of this encounter
--- OUTSIDE RECORDS SUMMARY | 2024-10-23 17:53 | XMS_ITS | Patient Health Record ---
Author Organization [facility] Address [address] [facility] [address] [place] [address] Care Team Providers Care Web Services Architect Name Role Phone EVELIN RAMSAY Primary Care Provider Yenny Hou Unavailable [phone] Allergies Allergen (clinical drug ingredient) Drug/Non Drug [...] Report Reviewed date:05/04/2024 11:35:04 PM Interpretation: Performing Lab:[facility], [address] [facility] [place], Phone - [phone], Director - Arely Notes/Report: Urine Culture, Routine-[id number] Reviewed date:05/04/2024 11:35:22 PM Interpretation: Performing Lab:[facility], [address] [facility], Phone - [phone], Director - Arely Notes/Report: Urine Culture, Routine Final report Result 1 Culture shows less than 10,000 colony forming units of bacteria per milliliter of urine. This colony count is not generally considered to be clinically significant. Urinalysis, Complete-[id number] Reviewed date:05/04/2024 11:35:42 PM Interpretation: Performing Lab:[facility], [address] [facility], Phone - [phone], Director - Arely Notes/Report: Specific [place] 1.009 1.005-1.030 pH 6.5 5.0-7.5 Urine-Color Yellow [...] Neg UROBILINOGEN Neg BILIRUBIN Neg BLOOD Neg Reason For Referral No Information Medications Medication [...] Synthroid 25MCG 1 ORAL daily for -3 [facility] 06/10/2014 Active ZyrTEC Allergy 10MG 1 [...] 1 ORAL at bedtime fo r -3 [facility] 06/10/2014 Active Meclizine HCl 25 MG 1 tablet as needed Orally [facility] 06/10/2014 Active Albuterol Sulfate (2.5 MG/3ML)0.083% Inhalation 4 x a day prn 06/10/2014 Active Valium 5MG 1 tablet as needed O RAL at bedtime, 1/2 tab prn during the day [facility] 06/10/2014 Active Social History Tobacco Use: [...] Status Risk Notes Problem Postmenopausal atrophic vaginitis (97964444) Postmenopausal atrophic vaginitis (N95.2) Active confirmed Problem Age-related osteoporosis (131981763) Age-related osteoporosis without current pathological fracture (M81.0) Active confirmed Problem Urgent desire to urinate (18690779) Urgency of urination (R39.15) Active confirmed Problem 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 Problem Chronic systolic heart failure (715284167) Chronic systolic (congestive) heart failure (I50.22) Active confirmed Problem Chronic obstructive pulmonary disease (33620417) Chronic obstructive pulmonary disease, unspecified (J44.9) Active confirmed Problem Functional urinary incontinence (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) Functional 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) Active confirmed Problem Personal history of primary malignant neoplasm of bronchus (048340238) 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) Active confirmed Vital Signs Temperature 97.7 degrees Fahrenheit 07/18/2024 Blood pressure diastolic 62 mm Hg 07/18/2024 Height 63 in 07/18/2024 Blood pressure systolic 102 mm Hg 07/18/2024 Weight 126 lbs 07/18/2024 BMI 22.32 kg/m2 07/18/2024 Encounters Encounter Location Date Provider Diagnosis Total [address] [address] 05/03/2024 Yenny Elizalde Urgency of urination R39.15 and Abscess of vulva N76.[address] [address] 05/10/2024 Yenny Elizalde Abscess of vulva N76 .[address] [address] 05/17/2024 Yenny Elizalde Abscess of vulva N76 .[address] [address] 07/09/2024 Yenny Elizalde Urgency of urination R39.15 ; Acute vaginitis N76.0 and Postmenopausal atrophic vaginitis N95.[address] [address] 07/18/2024 Yennydorothy Lovettva Encounter for screening mammogram for malignant neoplasm of breast Z12.31 and Mastodynia N64.[address] [address] 05/10/2024 Yenny Elizalde Total [address] [address] 05/13/2024 Yenny Elizalde Total [address] [place] [address] 06/11/2024 Yenny Roweueva Assessments Encounter Date Diagnosis [...] [facility] AND DISCUSSED THIS PAT. [...] Date MEDICARE [address] [place]ED[place] NIEVES [id number] CINDA WATSON Self - patient is the insured [employer] [address] [place] [address] [id number] 3 CINDA WATSON Self - patient is [...]
--- OUTSIDE RECORDS SUMMARY | 2024-10-23 17:53 | XMS_ITS | Encounter Summary ---
Author Organization [facility] and [facility] Address [address] [place] [address] Care Team Providers Care Director Cloud Transformation Name Role Phone Caitlyn Bowie MD Primary Care Provider +1- [phone] Encounter Details Date Type Department Care Team (Late st Contact Info) Description 04/16/2021 Scanned Document INTERFACE DEFAULT [address] [place] [address] System, Provider Not In Social History Tobacco [...] [facility] Visit [facility] at [address] - [address] [place] [address] Ronald Mills MD [address] [place] [phone] documented as of this encounter Procedures [...] as of this encounter Care Teams Director Cloud Transformation Relationship Specialty Start Date End Date Caitlyn Bowie MD [facility] [address] [address] PCP - General Internal Medicine 05/06/21 documented as of this encounter
--- OUTSIDE RECORDS SUMMARY | 2024-10-23 17:53 | XMS_ITS | Encounter Summary ---
Author Organization [facility] and [facility] Address [address] [place] [address] Care Team Providers Care Final Operations Technician Name Role Phone Caitlyn Bowie MD Primary Care Provider +1- [phone] Encounter Details Date Type Department Care Team (Late st Contact Info) Description 02/25/2021 Scanned Document INTERFACE DEFAULT [address] [place] [address] System, Provider Not In Social History Tobacco [...] Office Visit [facility] at [address] - [address] [place] [address] Ronald Mills MD [address] [place] [phone] documented as of this encounter Procedures [...] as of this encounter Care Teams Final Operations Technician Relationship Specialty Start Date End Date Caitlyn Bowie MD [address] [address] PCP - General Internal Medicine 05/06/21 documented as of this encounter
--- OUTSIDE RECORDS SUMMARY | 2024-10-23 17:53 | XMS_ITS | Clinical Summary ---
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 I have asked her to take this daily to see if this improves her symptoms and she has a follow-up appointment with Dr. Shah on September 16 which she will keep. We also had a long conversation regarding the fact that she is seeing 3 different newspaper manager for the same problems. We informed [...] continues to see Dr. Avalos or her newspaper manager at [facility]. She verbalized [...] right lower leg 03/06/2019 Antiphospholipid antibody syndrome ([facility] V24) 12/24/2018 Adrenal insufficiency ([facility] V24) 08/23/2018 Allergic rhinitis 08/23/2018 Hyperparathyroidism ([facility] V24) 08/23/2018 MRSA infection 08/23/2018 Overview (05/16/2024): 06/2009, s/p thoracotomy infection Osteoarthritis 08/23/2018 Radiation-induced pulmonary fibrosis ([facility] V2 4) 11/13/2017 Bronchiectasis ([facility] V24, [facility] V28) 2017 Leg edema 08/08/2017 Restrictive lung disease 08/08/2017 Chronic obstructive pulmonar y disease ([facility] V24, [facility] V28) 04/13/2017 Fibromyalgia 04/13/2017 Congestive heart failure ([facility] V24, [facility] V 28) 04/04/2017 Heterozygous factor V Leiden mutation ([facility] V 24) 04/04/2017 Obstructive sleep apnea syndrome 04/04/2017 Overview (05/16/2024): CPAP Pleural effusion 04/04/2017 Pulmonary hypertension ([facility] V24, [facility] V28 ) 04/04/2017 Multiple pulmonary nodules 03/17/2017 [...] Description 10/10/2024 1:00 PM EDT Office Visit [address] [place] [address] Ayanna Jaffe MD 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); Gait abnormality; Memory change; Anxiety; Blurry vision 10/09/2024 12:45 PM EDT Treatment [facility] 175 [facility] [address] [place] [address] Daphne Alarcon, BI REPORT DEVELOPER 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); Cognitive communication disorder; Unsp symptoms and signs w cognitive functions and awareness 10/09/2024 Plan of Care Documentation [facility] [address] [address] 08/26/2024 10:30 AM EST Telemedicine [facility] for [facility] 175 [facility] 150 [place] [phone] Ayanna Jaffe MD Anxiety (Primary Dx); Memory change; Gait abnormality; White matter lesion of central nervous system 08/23/2024 1:20 PM EST Office Visit Gastroenterology - 299 [facility] 299 [facility] [address] [place] [address] Saima Amor, HEARING SCREENER Gastroesophageal reflux disease, unspecified whether esophagitis present (Primary Dx); Constipation, unspecified constipation type 08/19/2024 Telephone [facility] [address] [address] Daphne Alarcon, BI REPORT DEVELOPER returning pt call 08/08/2024 Telephone [facility] [address] [address] Daphne Alarcon, BI REPORT DEVELOPER Memory Loss (Returned pt call from [...] PROCEDURE: HISTORICAL TONSILLECTOMY OTHER SURGICAL HISTORY PROCEDURE: IN RMVL LUNG XCP TOT PNEUMONECTOMY SLEEVE LOBECTOMY; [...] pathology report UPPER GASTROINTESTINAL ENDOSCOPY 05/03/2015 PROCEDURE: IN UPPER GI ENDOSCOPY PERFORMED MITRAL CLIP PROCEDURE Medical History Medical History Date Comments Akathisia 04/15/2013 DX:Akathisia Anxiety 12/07/2016 DX:Anxiety Bronchiectasis ([facility] V24, [facility] V28) 08/08/2017 DX:Bronchiectasis (HCC) Cataract 08/26/2014 DX:Cataract Chronic obstructive pulmonar y disease ([facility]/HCC V24, [facility] V28) 04/13/2017 DX:Chronic obstructive pulm onary disease (HCC) 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 DX:Complica cole migraine Congestive heart failure ([facility] S/HCC V24, [facility]/HCC V28) 04/04/2017 DX:Congestive heart failure (HCC) History of deep vein thrombosis 04/04/2017 DX:History of deep vein thrombosis Diverticulitis of sigmoid colon 12/15/2016 DX:Diverticulitis of sigmoid colon Elevated liver enzymes 09/23/2015 DX:Elevat ed liver enzymes Fibromyalgia 04/13/2017 DX:Fibromyalgia Gastroesophageal reflux disease 11/17/2016 DX:Gastroesophageal reflux disease Glaucoma suspect 08/26/2014 DX:Glaucoma dori pect Heterozygous factor V Leiden mutation ([facility] V24) 04/04/2017 DX:Heterozygous factor V Lei den [...] syndrome 02/18/2013 DX:Postc oncussion syndrome Pulmonary hypertension ([facility] V24, [facility] V28) 04/04/2017 DX:Pulmonary hypertension (H CC) Restrictive lung disease 08/08/2017 DX:Rest rictive lung disease 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 DX:Zinc deficien cy Obstructive sleep apnea syndrome 04/04/2017 DX:Obstructive sleep apnea syndrome; COMMENT: CPAP Radiation-induced pulmonary fibrosis ([facility] V24) 11/13/2017 DX:Radiation-induced pulmona ry fibrosis (HCC) Adrenal insufficiency ([facility] V24) 08/23/2018 DX:Adrenal insufficiency (HCC) Hyperparathyroidism ([facility] V24) 08/23/2018 DX:Hyperparathyroidism (HCC) Osteoporosis 11/17/2016 DX:Osteoporosis [...] Mx LLL resection, Chemo, RT, Cisplatin, Vinorelbine [id number] Antiphospholipid antibody sy ndrome ([facility] V24) 12/24/2018 DX:Antiphospholipid antibody syndrome (HCC) 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 Hyperparathyroidism ([facility] V24) DX:Hyperparathyroidism (HCC) Adrenal insufficiency ([facility] V24) DX:Adrenal insufficiency (HCC) Family History Medical [...] Description 12/10/2024 1:00 PM EDT [facility] 175 [facility] [address] [place] [phone] Shirley Chaidez PA [address] [place] [address] Health Maintenance Due Date Last Done Comments [...] mmol/L LAB CHEMISTRY METHOD 06/15/2024 2:10 PM [facility] Potassium 4.7 3.5 - 5.5 mmol/L LAB CHEMISTRY METHOD 06/15/2024 2:10 PM [facility] Chloride 102 96 - 110 mmol/L LAB CHEMISTRY METHOD 06/15/2024 2:10 PM [facility] CO2 34(H) 21 - 32 mmol/L LAB CHEMISTRY METHOD 06/15/2024 2:10 PM [facility] Anion Gap 4 3 - 11 LAB CHEMISTRY METHOD 06/15/2024 2:10 PM [facility] Glucose 95 70 - 100 mg/dL LAB CHEMISTRY METHOD 06/15/2024 2:10 PM [facility] BUN 29(H) 5 - 25 mg/dL LAB CHEMISTRY METHOD 06/15/2024 2:10 PM [facility] Creatinine 0.95 0.50 - 1.10 mg/dL LAB CHEMISTRY METHOD 06/15/2024 2:10 PM [facility] eGFR 60 >=60 mL/min/1. 73m2 LAB CHEMISTRY METHOD 06/15/2024 2:10 PM [facility] Comment:Calculation based on the??Chronic Kidney Disease Epidemiology Collaboration (CKD-EPI) equation refit??without adjustment for race. BUN/Creatinine Ratio 30.5 LAB CHEMISTRY METHOD 06/15/2024 2:10 PM [facility] Calcium 10.1 8.5 - 10.5 mg/dL LAB CHEMISTRY METHOD 06/15/2024 2:10 PM [facility] AST (SGOT) 35 10 - 42 unit/L LAB CHEMISTRY METHOD 06/15/2024 2:10 PM [facility] ALT (SGPT) 39 10 - 60 unit/L LAB CHEMISTRY METHOD 06/15/2024 2:10 PM [facility] Alkaline Phosphatase 83 42 - 121 unit/L LAB CHEMISTRY METHOD 06/15/2024 2:10 PM EST [facility] Total Protein 6.4 6.0 - 8.0 g/dL LAB CHEMISTRY METHOD 06/15/2024 2:10 PM EST [facility] Albumin 3.3 3.2 - 5.0 g/dL LAB CHEMISTRY METHOD 06/15/2024 2:10 PM EST [facility] Total Bilirubin 0.4 0.0 - 1.4 mg/dL LAB CHEMISTRY METHOD 06/15/2024 2:10 PM EST [facility] Blood Venous blood specimen / Unknown Venipuncture / Unknown 06/15/2024 1:26 PM EST 06/15/2024 1:32 PM EST us Jovana Cruz MD LAB BLOOD ORDERABLES Final Resul t [facility] [address] [place] [address], from Last 3 Months or Most Recently Relevant to Health [place] [id number] [facility] Advance Directives Documents on File Type Date Recorded Patient Electrician Station Assistant Expl anation Health Care Decision (hx) 10/18/2013 [...] (hx) 10/04/2013 AD LACEY DIRECTIVE Care Teams Protein Specialist Relationship Specialty Start Date End Date Brennan Burnett MD [address] [place] [address] PCP - General 05/06/24
--- OUTSIDE RECORDS SUMMARY | 2024-10-23 17:53 | XMS_ITS | Encounter Summary ---
Author Organization [facility] and [facility] Address [address] [place] [address] Care Team Providers Care Label Stamper Name Role Phone Caitlyn Bowie MD Primary Care Provider +1- [phone] Encounter Details Date Type Department Care Team (Late st Contact Info) Description 03/23/2021 Scanned Document INTERFACE DEFAULT [address] [place] [address] System, Provider Not In Social History Tobacco [...] [facility] Visit [facility] at [address] [place] [address] Ronald Mills MD [address] [place] [phone] documented as of this encounter Procedures [...] as of this encounter Care Teams Label Stamper Relationship Specialty Start Date End Date Caitlyn Bowie MD [address] [address] PCP - General Internal Medicine 05/06/21 documented as of this encounter
--- OUTSIDE RECORDS SUMMARY | 2024-10-23 17:53 | XMS_ITS | Encounter Summary ---
Author Organization [facility] and [facility] Address [address] [place] [address] Care Team Providers Care Experience Planning Strategist Name Role Phone Caitlyn Bowie MD Primary Care Provider +1- [phone] Encounter Details Date Type Department Care Team (Late st Contact Info) Description 03/22/2021 Scanned Document INTERFACE DEFAULT [address] [place] [address] System, Provider Not In Social History Tobacco [...] Office Visit [facility] at [address] [place] [address] Ronald Mills MD [address] [place] [phone] documented as of this encounter Visit Diagnoses Not on filedocumented in this encounter Additional Health Concerns Infection Onset Date Last Indicated Resolved Time COVID-19 03/05/2022 03/05/2022 03/15/2022 7:18 PM EDT Assessment Noted Time PHQ-9 Depression Total Score: 2 11/07/19 19 2:06 PM EDT documented as of this encounter Care Teams Experience Planning Strategist Relationship Specialty Start Date End Date Caitlyn Bowie MD [address] [address] PCP - General Internal Medicine 05/06/21 documented as of this encounter
--- OUTSIDE RECORDS SUMMARY | 2024-10-23 17:53 | XMS_ITS | Encounter Summary ---
Author Organization [facility] and [facility] Address [address] [place] [address] Care Team Providers Care Intake Worker Name Role Phone Caitlyn Bowie MD Primary Care Provider +1- [phone] Encounter Details Date Type Department Care Team (Late st Contact Info) Description 03/08/2021 Scanned Document INTERFACE DEFAULT [address] [place] [address] System, Provider Not In Social History Tobacco [...] [facility] [address] [place] [address] Ronald Mills MD [address] [place] [phone] documented as of this encounter Procedures [...] as of this encounter Care Teams Intake Worker Relationship Specialty Start Date End Date Caitlyn Bowie MD [address] [address] PCP - General Internal Medicine 05/06/21 documented as of this encounter
--- OUTSIDE RECORDS SUMMARY | 2024-10-23 17:53 | XMS_ITS | Encounter Summary ---
Author Organization [facility] Address [address] [place] [address] Care Team Providers Care Attic Fans Mechanic Name Role Phone Caitlyn Bowie MD Primary Care Provider +1- [phone] Encounter Details Date Type Department Care Team (Late st Contact Info) Description 01/26/2018 Scanned Document [facility] Health Information Management [address] [place] [address] External, Provider Social History Tobacco Use Types [...] [facility] Visit [facility] at [address] - [address] [place] [address] Ronald Mills MD [address] [place] [phone] documented as of this encounter Procedures [...] documented as of this encounter Care Teams Attic Fans Mechanic Relationship Specialty Start Date End Date Caitlyn Bowie MD 3400 [facility] Max 1 [place] [address] PCP - General Internal Medicine 05/06/21 Henry Kelly MD Pulmonary Department 175 [facility], [address] [place] [address] Physician Pulmonary Disease 09/06/17 06/22/20 documented as of this encounter
--- OUTSIDE RECORDS SUMMARY | 2024-10-23 17:53 | XMS_ITS | Encounter Summary ---
Author Organization [facility] and [facility] Address [address] [place] [address] Care Team Providers Care Hand Sewer Shoes Name Role Phone Caitlyn Bowie MD Primary Care Provider +1- [phone] Encounter Details Date Type Department Care Team (Late st Contact Info) Description 01/07/2014 Documentation [facility] [address] [place] [address] Shilpi Ibarra [address] [place] [address] Social History Tobacco Use Types Packs/Day Years [...] EDT Office Visit [facility] 20 [facility] - [address] [place] [address] Ronald Mills MD 240 [facility] Max [address] [place] [address] documented as of this encounter Visit Diagnoses Not on filedocumented in this encounter Additional Health Concerns Infection Onset Date Last Indicated Resolved Time COVID-19 03/05/2022 03/05/2022 03/15/2022 7:18 PM EDT documented as of this encounter Care Teams Hand Sewer Shoes Relationship Specialty Start Date End Date Caitlyn Bowie MD 3400 [facility] 1 [place] [address] PCP - General Internal Medicine 05/06/21 Henry Kelly MD Pulmonary Department 175 [facility], [address] [place] [address] Physician Pulmonary Disease 09/06/17 06/22/20 documented as of this encounter
--- OUTSIDE RECORDS SUMMARY | 2024-10-23 17:53 | XMS_ITS | Encounter Summary ---
Author Organization [facility] and [facility] Address [address] [place] [address] Care Team Providers Care Contract Modeler Name Role Phone Caitlyn Bowie MD Primary Care Provider +1- [phone] Encounter Details Date Type Department Care Team (Late st Contact Info) Description 02/08/2021 Scanned Document INTERFACE DEFAULT [address] [place] [address] System, Provider Not In Social History Tobacco [...] EDT [facility] at [address] - [address] [place] [address] Ronald Mills MD [address] [place] [phone] documented as of this encounter Visit Diagnoses Not on filedocumented in this encounter Additional Health Concerns Infection Onset Date Last Indicated Resolved Time COVID-19 03/05/2022 03/05/2022 03/15/2022 7:18 PM EDT Assessment Noted Time PHQ-9 Depression Total Score: 2 11/07/19 19 2:06 PM EDT documented as of this encounter Care Teams Contract Modeler Relationship Specialty Start Date End Date Caitlyn Bowie MD [address] [address] PCP - General Internal Medicine 05/06/21 documented as of this encounter
--- OUTSIDE RECORDS SUMMARY | 2024-10-23 17:53 | XMS_ITS | Encounter Summary ---
Author Organization [facility] Address [address] [place] [address] Care Team Providers Care Wine Cellar Worker Name Role Phone Caitlyn Bowie MD Primary Care Provider +1- [phone] Encounter Details Date Type Department Care Team (Late st Contact Info) Description 09/18/2020 Scanned Document INTERFACE DEFAULT [address] [place] [address] System, Provider Not In Social History Tobacco [...] Office Visit [facility] at [address] - [address] [place] [address] Ronald Mills MD [address] [place] [phone] documented as of this encounter Visit Diagnoses Not on filedocumented in this encounter Additional Health Concerns Infection Onset Date Last Indicated Resolved Time COVID-19 03/05/2022 03/05/2022 03/15/2022 7:18 PM EDT Assessment Noted Time PHQ-9 Depression Total Score: 2 11/07/19 19 2:06 PM EDT documented as of this encounter Care Teams Wine Cellar Worker Relationship Specialty Start Date End Date Caitlyn Bowie MD [address] [address] PCP - General Internal Medicine 05/06/21 documented as of this encounter
--- OUTSIDE RECORDS SUMMARY | 2024-10-23 17:53 | XMS_ITS | Encounter Summary ---
Author Organization [facility] and [facility] Address [address] [place] [address] Care Team Providers Care Template Clerk Name Role Phone Caitlyn Bowie MD Primary Care Provider +1- [phone] Encounter Details Date Type Department Care Team (Late Contact Info) Description 10/16/2013 Scanned Document [facility] [address] [place] [address], 2nd floor [facility], [address] [place], [place] [address] Suzy Kong MD [address] [place] [address] Social History Tobacco Use Types Packs/Day [...] [facility] Visit [facility] at [address] [address] Ronald Mills MD [address] [place] [phone] documented as of this encounter Visit Diagnoses Not on filedocumented in this encounter Additional Health Concerns Infection Onset Date Last Indicated Resolved Time COVID-19 03/05/2022 03/05/2022 03/15/2022 7:18 PM EDT documented as of this encounter Care Teams Template Clerk Relationship Specialty Start Date End Date Caitlyn Bowie MD 3400 [facility] Max 1 [place] [address] PCP - General Internal Medicine 05/06/21 Henry Kelly MD Pulmonary Department 175 [facility], [address] [place] [address] Physician Pulmonary Disease 09/06/17 06/22/20 documented as of this encounter
--- OUTSIDE RECORDS SUMMARY | 2024-10-23 17:53 | XMS_ITS | Encounter Summary ---
Author Organization [facility] Address [address] [place] [address] Care Team Providers Care Aviation Engineer Name Role Phone Caitlyn Bowie MD Primary Care Provider +1- [phone] Encounter Details Date Type Department Care Team (Late Contact Info) Description 04/11/2021 Scanned Document [facility] Health Information Management [address] [place] [address] External, Provider Social History Tobacco Use Types [...] Office Visit [facility] at [address] - [address] [place] [address] Ronald Mills MD [address] [place] [phone] documented as of this encounter Visit Diagnoses Not on filedocumented in this encounter Additional Health Concerns Infection Onset Date Last Indicated Resolved Time COVID-19 03/05/2022 03/05/2022 03/15/2022 7:18 PM EDT Assessment Noted Time PHQ-9 Depression Total Score: 2 11/07/19 19 2:06 PM EDT documented as of this encounter Care Teams Aviation Engineer Relationship Specialty Start Date End Date Caitlyn Bowie MD [address] [address] PCP - General Internal Medicine 05/06/21 documented as of this encounter
--- OUTSIDE RECORDS SUMMARY | 2024-10-23 17:53 | XMS_ITS | Encounter Summary ---
Author Organization [facility] Address [address] [place] [address] Care Team Providers Care Media Strategist Name Role Phone Caitlyn Bowie MD Primary Care Provider +1- [phone] Encounter Details Date Type Department Care Team (Late st Contact Info) Description 04/22/2021 Scanned Document INTERFACE DEFAULT [address] [place] [address] System, Provider Not In Social History Tobacco [...] Office Visit [facility] at [address] - [address] [place] [address] Ronald Mills MD [address] [place] [phone] documented as of this encounter Procedures [...] as of this encounter Care Teams Media Strategist Relationship Specialty Start Date End Date Caitlyn Bowie MD [address] [address] PCP - General Internal Medicine 05/06/21 documented as of this encounter
--- OUTSIDE RECORDS SUMMARY | 2024-10-23 17:53 | XMS_ITS | Encounter Summary ---
Author Organization [facility] and [facility] Address [address] [place] [address] Care Team Providers Care Delphi Developer Name Role Phone Caitlyn Bowie MD Primary Care Provider +1- [phone] Encounter Details Date Type Department Care Team (Late st Contact Info) Description 03/01/2021 Scanned Document INTERFACE DEFAULT [address] [place] [address] System, Provider Not In Social History Tobacco [...] EDT Office Visit [facility] at [address] - [address] [place] [address] Ronald Mills MD [address] [place] [phone] documented as of this encounter Visit Diagnoses Not on filedocumented in this encounter Additional Health Concerns Infection Onset Date Last Indicated Resolved Time COVID-19 03/05/2022 03/05/2022 03/15/2022 7:18 PM EDT Assessment Noted Time PHQ-9 Depression Total Score: 2 11/07/19 19 2:06 PM EDT documented as of this encounter Care Teams Delphi Developer Relationship Specialty Start Date End Date Caitlyn Bowie MD [address] [address] PCP - General Internal Medicine 05/06/21 documented as of this encounter
--- OUTSIDE RECORDS SUMMARY | 2024-10-23 17:53 | XMS_ITS | Encounter Summary ---
Author Organization [facility] and [facility] Address [address] [place] [address] Care Team Providers Care Log Roper Name Role Phone Caitlyn Bowie MD Primary Care Provider +1- [phone] Encounter Details Date Type Department Care Team (Late st Contact Info) Description 04/12/2021 Scanned Document INTERFACE DEFAULT [address] [place] [address] System, Provider Not In Social History Tobacco [...] Office Visit [facility] at [address] - [address] [place] [address] Ronald Mills MD [address] [place] [phone] documented as of this encounter Procedures [...] as of this encounter Care Teams Log Roper Relationship Specialty Start Date End Date Caitlyn Bowie MD [address] [address] PCP - General Internal Medicine 05/06/21 documented as of this encounter
--- OUTSIDE RECORDS SUMMARY | 2024-10-23 17:53 | XMS_ITS | Encounter Summary ---
Author Organization [facility] and [facility] Address [address] [place] [address] Care Team Providers Care Activity Therapist Name Role Phone Caitlyn Bowie MD Primary Care Provider +1- [phone] Encounter Details Date Type Department Care Team (Late st Contact Info) Description 06/07/2017 Scanned Document [facility] Health Information Management [address] [place] [address] External, Provider Social History Tobacco Use Types [...] Program at [address] - [address] [place] [address] Ronald Mills MD [address] [place] [phone] documented as of this encounter Procedures [...] documented as of this encounter Care Teams Activity Therapist Relationship Specialty Start Date End Date Caitlyn Bowie MD 3400 [facility] Max 1 [place] [address] PCP - General Internal Medicine 05/06/21 Henry Kelly MD Pulmonary Department 175 [facility], [address] [place] [address] Physician Pulmonary Disease 09/06/17 06/22/20 documented as of this encounter
--- OUTSIDE RECORDS SUMMARY | 2024-10-23 17:53 | XMS_ITS | Encounter Summary ---
Author Organization [facility] Address [address] [place] [place] [address] Care Team Providers Care Plumber Name Role Phone Caitlyn Bowie MD Primary Care Provider +1- [phone] Encounter Details Date Type Department Care Team (Late st Contact Info) Description 08/23/2017 Scanned Document [facility] Health Information Management [address] [place] [address] External, Provider Social History Tobacco Use Types [...] Office Visit [facility] at [address] - [address] [place] [address] Ronald Mills MD [address] [place] [phone] documented as of this encounter Procedures [...] documented as of this encounter Care Teams Plumber Relationship Specialty Start Date End Date Caitlyn Bowie MD 3400 [facility] Max 1 [place] [address] PCP - General Internal Medicine 05/06/21 Henry Kelly MD Pulmonary Department 175 [facility], [address] [place] [address] Physician Pulmonary Disease 09/06/17 06/22/20 documented as of this encounter
--- OUTSIDE RECORDS SUMMARY | 2024-10-23 17:53 | XMS_ITS | Encounter Summary ---
Author Organization [facility] and [facility] Address [address] [place] [address] Care Team Providers Care Marine Engineering Teacher Name Role Phone Caitlyn Bowie MD Primary Care Provider +1- [phone] Encounter Details Date Type Department Care Team (Late st Contact Info) Description 02/15/2021 Scanned Document INTERFACE DEFAULT [address] [place] [address] System, Provider Not In Social History Tobacco [...] Office Visit [facility] at [address] - [address] [place] [address] Ronald Mills MD [address] [place] [phone] documented as of this encounter Visit Diagnoses Not on filedocumented in this encounter Additional Health Concerns Infection Onset Date Last Indicated Resolved Time COVID-19 03/05/2022 03/05/2022 03/15/2022 7:18 PM EDT Assessment Noted Time PHQ-9 Depression Total Score: 2 11/07/19 19 2:06 PM EDT documented as of this encounter Care Teams Marine Engineering Teacher Relationship Specialty Start Date End Date Caitlyn Bowie MD [address] [address] PCP - General Internal Medicine 05/06/21 documented as of this encounter
--- OUTSIDE RECORDS SUMMARY | 2024-10-23 17:53 | XMS_ITS | Encounter Summary ---
Author Organization [facility] Address [address] [place] [address] Care Team Providers Care Amphibian Crewmember Name Role Phone Caitlyn Bowie MD Primary Care Provider +1- [phone] Encounter Details Date Type Department Care Team (Late st Contact Info) Description 03/16/2021 Scanned Document INTERFACE DEFAULT [address] [place] [address] System, Provider Not In Social History Tobacco [...] Office Visit [facility] at [address] - [address] [place] [address] Ronald Mills MD [address] [place] [phone] documented as of this encounter Visit Diagnoses Not on filedocumented in this encounter Additional Health Concerns Infection Onset Date Last Indicated Resolved Time COVID-19 03/05/2022 03/05/2022 03/15/2022 7:18 PM EDT Assessment Noted Time PHQ-9 Depression Total Score: 2 11/07/19 19 2:06 PM EDT documented as of this encounter Care Teams Amphibian Crewmember Relationship Specialty Start Date End Date Caitlyn Bowie MD [address] [address] PCP - General Internal Medicine 05/06/21 documented as of this encounter
--- OUTSIDE RECORDS SUMMARY | 2024-10-23 17:53 | XMS_ITS | Encounter Summary ---
Author Organization [facility] Address [address] [place] [address] Care Team Providers Care Tool Machinist Name Role Phone Caitlyn Bowie MD Primary Care Provider +1- [phone] Encounter Details Date Type Department Care Team (Late Contact Info) Description 09/01/2017 Scanned Document [facility] Health Information Management [address] [place] [address] External, Provider Social History Tobacco Use Types [...] Office Visit [facility] at [address] - [address] [place] [address] Ronald Mills MD [address] [place] [phone] documented as of this encounter Procedures [...] as of this encounter Care Teams Tool Machinist Relationship Specialty Start Date End Date Caitlyn Bowie MD 3400 [facility] 1 [place] [address] PCP - General Internal Medicine 05/06/21 Henry Kelly MD Pulmonary Department 175 [facility], [address] [place] [address] Physician Pulmonary Disease 09/06/17 06/22/20 documented as of this encounter
--- OUTSIDE RECORDS SUMMARY | 2024-10-23 17:53 | XMS_ITS | Encounter Summary ---
Author Organization [facility] and [facility] Address [address] [place] [phone] Care Team Providers Care Airplane Technician Name Role Phone Caitlyn Bowie MD Primary Care Provider +1- [phone] Encounter Details Date Type Department Care Team (Late st Contact Info) Description 02/28/2021 Scanned Document INTERFACE DEFAULT [address] [place] [address] System, Provider Not In Social History Tobacco [...] EDT Office Visit [facility] at [address] - [address] [place] [address] Ronald Mills MD [address] [place] [phone] documented as of this encounter Procedures [...] as of this encounter Care Teams Airplane Technician Relationship Specialty Start Date End Date Caitlyn Bowie MD [address] [address] PCP - General Internal Medicine 05/06/21 documented as of this encounter
--- OUTSIDE RECORDS SUMMARY | 2024-10-23 17:53 | XMS_ITS | Encounter Summary ---
Author Organization [facility] and [facility] Address [address] [place] [address] Care Team Providers Care Motor Patrol Operator Name Role Phone Caitlyn Bowie MD Primary Care Provider +1- [phone] Encounter Details Date Type Department Care Team (Late st Contact Info) Description 04/13/2021 Scanned Document INTERFACE DEFAULT [address] [place] [address] System, Provider Not In Social History Tobacco [...] Office Visit [facility] at [address] - [address] [place] [address] Ronald Mills MD [address] [place] [phone] documented as of this encounter Procedures [...] as of this encounter Care Teams Motor Patrol Operator Relationship Specialty Start Date End Date Caitlyn Bowie MD [address] [address] PCP - General Internal Medicine 05/06/21 documented as of this encounter
--- OUTSIDE RECORDS SUMMARY | 2024-10-23 17:53 | XMS_ITS | Encounter Summary ---
Author Organization [facility] and [facility] Address [address] [place] [phone] Care Team Providers Care Trim Installer Name Role Phone Caitlyn Bowie MD Primary Care Provider +1- [phone] Encounter Details Date Type Department Care Team (Late st Contact Info) Description 03/24/2021 Scanned Document INTERFACE DEFAULT [address] [place] [address] System, Provider Not In Social History Tobacco [...] Office Visit [facility] at [address] - [address] [place] [address] Ronald Mills MD [address] [place] [phone] documented as of this encounter Visit [...] End Date Caitlyn Bowie MD [address] [address] PCP - General Internal Medicine 05/06/21 documented as of this encounter
--- OUTSIDE RECORDS SUMMARY | 2024-10-23 17:53 | XMS_ITS | Encounter Summary ---
Author Organization [facility] and [facility] Address [address] [place] [address] Care Team Providers Care Sewer Pipe Sorter Name Role Phone Caitlyn Bowie MD Primary Care Provider +1- [phone] Encounter Details Date Type Department Care Team (Late Contact Info) Description 02/02/2021 Scanned Document [facility] Health Information Management [address] [place] [address] External, Provider Social History Tobacco Use Types [...] Office Visit [facility] at [address] - [address] [place] [address] Ronald Mills MD [address] [place] [phone] documented as of this encounter Visit Diagnoses Not on filedocumented in this encounter Additional Health Concerns Infection Onset Date Last Indicated Resolved Time COVID-19 03/05/2022 03/05/2022 03/15/2022 7:18 PM EDT Assessment Noted Time PHQ-9 Depression Total Score: 2 11/07/19 19 2:06 PM EDT documented as of this encounter Care Teams Sewer Pipe Sorter Relationship Specialty Start Date End Date Caitlyn Bowie MD [address] [address] PCP - General Internal Medicine 05/06/21 documented as of this encounter
--- OUTSIDE RECORDS SUMMARY | 2024-10-23 17:53 | XMS_ITS | Encounter Summary ---
Author Organization [facility] and [facility] Address [address] [place] [address] Care Team Providers Care Glass Cleaner Name Role Phone Caitlyn Bowie MD Primary Care Provider +1- [phone] Encounter Details Date Type Department Care Team (Late st Contact Info) Description 08/09/2017 Scanned Document [facility] at [address] [place] [address] System, Provider Not In Social History Tobacco [...] EDT Office Visit Hematology Program at [address] [address] Ronald Mills MD [address] [place] [phone] documented as of this encounter Procedures [...] as of this encounter Care Teams Glass Cleaner Relationship Specialty Start Date End Date Caitlyn Bowie MD 3400 [facility] 1 [place] [address] PCP - General Internal Medicine 05/06/21 Henry Kelly MD Pulmonary Department 175 [facility], [address] [place] [address] Physician Pulmonary Disease 09/06/17 06/22/20 documented as of this encounter
--- OUTSIDE RECORDS SUMMARY | 2024-10-23 17:54 | XMS_ITS | Encounter Summary ---
Author Organization [facility] and [facility] Address [address] [place] [phone] Care Team Providers Care Mechanical Ordnance Assembler Name Role Phone Caitlyn Bowie MD Primary Care Provider +1- [phone] Encounter Details Date Type Department Care Team (Late st Contact Info) Description 01/27/2018 Scanned Document [facility] Health Information Management [address] [place] [address] External, Provider Social History Tobacco Use Types [...] [facility] [address] [place] [address] Ronald Mills MD [address] [place] [phone] documented as of this encounter Visit Diagnoses Not on filedocumented in this encounter Additional Health Concerns Infection Onset Date Last Indicated Resolved Time COVID-19 03/05/2022 03/05/2022 03/15/2022 7:18 PM EDT documented as of this encounter Care Teams Mechanical Ordnance Assembler Relationship Specialty Start Date End Date Caitlyn Bowie MD 3400 [facility] 1 [place] [address] PCP - General Internal Medicine 05/06/21 Henry Kelly MD Pulmonary Department [address] [place] [address], [address] [place] [address] Physician Pulmonary Disease 09/06/17 06/22/20 documented as of this encounter
--- OUTSIDE RECORDS SUMMARY | 2024-10-23 17:54 | XMS_ITS | Encounter Summary ---
Author Organization [facility] and [facility] Address [address] [place] [phone] Care Team Providers Care Plate Shear Operator Name Role Phone Caitlyn Bowie MD Primary Care Provider +1- [phone] Encounter Details Date Type Department Care Team (Late Contact Info) Description 03/14/2018 Scanned Document [facility] Health Information Management [address] [place] [address] External, Provider Social History Tobacco Use Types [...] Office Visit [facility] [address] [place] [address] Ronald Mills MD [address] [place] [phone] documented as of this encounter Procedures [...] documented as of this encounter Care Teams Plate Shear Operator Relationship Specialty Start Date End Date Caitlyn Bowie MD 3400 [facility] 1 [place] [address] PCP - General Internal Medicine 05/06/21 Henry Kelly MD Pulmonary Department [address] [facility], [address] [place] [address] Physician Pulmonary Disease 09/06/17 06/22/20 documented as of this encounter
--- OUTSIDE RECORDS SUMMARY | 2024-10-23 17:54 | XMS_ITS | Encounter Summary ---
Author Organization [facility] and [facility] Address [address] [place] [phone] Care Team Providers Care Windows Administrator Name Role Phone Caitlyn Bowie MD Primary Care Provider +1- [phone] Encounter Details Date Type Department Care Team (Late st Contact Info) Description 02/02/2021 Scanned Document INTERFACE DEFAULT [address] [place] [phone] System, Provider Not In Social History Tobacco [...] [facility] Visit [facility] at [address] [place] [address] Ronald Mills MD [address] [place] [phone] documented as of this encounter Procedures [...] as of this encounter Care Teams Windows Administrator Relationship Specialty Start Date End Date Caitlyn Bowie MD [facility] [address] [address] PCP - General Internal Medicine 05/06/21 documented as of this encounter
--- OUTSIDE RECORDS SUMMARY | 2024-10-23 17:54 | XMS_ITS | Encounter Summary ---
Author Organization [facility] and [facility] Address [address] [place] [address] Care Team Providers Care Photostat Operator Helper Name Role Phone Caitlyn Bowie MD Primary Care Provider +1- [phone] Encounter Details Date Type Department Care Team (Late st Contact Info) Description 02/02/2018 Scanned Document [facility] Health Information Management [address] [place] [address] External, Provider Social History Tobacco Use Types [...] EDT Office Visit [facility] at [address] [place] [address] Ronald Mills MD [address] [place] [phone] documented as of this encounter Visit Diagnoses Not on filedocumented in this encounter Additional Health Concerns Infection Onset Date Last Indicated Resolved Time COVID-19 03/05/2022 03/05/2022 03/15/2022 7:18 PM EDT documented as of this encounter Care Teams Photostat Operator Helper Relationship Specialty Start Date End Date Caitlyn Bowie MD 3400 [facility] 1 [place] [address] PCP - General Internal Medicine 05/06/21 Henry Kelly MD Pulmonary Department [address] [place] [address], [address] [place] [address] Physician Pulmonary Disease 09/06/17 06/22/20 documented as of this encounter
--- OUTSIDE RECORDS SUMMARY | 2024-10-23 17:54 | XMS_ITS | Encounter Summary ---
Author Organization [facility] and [facility] Address [address] [place] [phone] Care Team Providers Care Pit Slagman Name Role Phone Caitlyn Bowie MD Primary Care Provider +1- [phone] Encounter Details Date Type Department Care Team (Late st Contact Info) Description 12/04/2014 Scanned Document [facility] Health Information Management [address] [place] [phone] External, Provider Social History Tobacco Use Types [...] Office Visit [facility] at [address] [place] [address] Ronald Mills MD [address] [place] [phone] documented as of this encounter Procedures Procedure Name Priority Date/Time Associated Diagnosis Comments LAB SCAN Routine 12/04/2014 documented in this encounter Results * Lab Scan (12/04/2014) Blood specimen (specimen) us Provider External LAB BLOOD ORDERABLES Final Res ult [facility] documented in this encounter Visit Diagnoses Not on filedocumented in this encounter Additional Health Concerns Infection Onset Date Last Indicated Resolved Time COVID-19 03/05/2022 03/05/2022 03/15/2022 7:18 PM EDT documented as of this encounter Care Teams Pit Slagman Relationship Specialty Start Date End Date Caitlyn Bowie MD 3400 [facility] 1 [place] [address] PCP - General Internal Medicine 05/06/21 Henry Kelly MD Pulmonary Department 175 [facility], [address] [place] [address] Physician Pulmonary Disease 09/06/17 06/22/20 documented as of this encounter
--- OUTSIDE RECORDS SUMMARY | 2024-10-23 17:54 | XMS_ITS | Encounter Summary ---
Author Organization [facility] and [facility] Address [address] [place] [address] Care Team Providers Care Manager Restaurant Name Role Phone Caitlyn Bowie MD Primary Care Provider +1- [phone] Encounter Details Date Type Department Care Team (Late st Contact Info) Description 03/13/2015 Scanned Document [facility] Health Information Management [address] [place] [address] External, Provider Social History Tobacco Use Types [...] Office Visit [facility] at [address] [place] [address] Ronald Mills MD [address] [place] [phone] documented as of this encounter Procedures Procedure Name Priority Date/Time Associated Diagnosis Comments LAB SCAN Routine 02/16/2015 LAB SCAN Routine 02/16/2015 documented in this encounter Results * Lab Scan (02/16/2015) Blood specimen (specimen) us Provider External LAB BLOOD ORDERABLES Final Res ult Performing Organization Address [facility] Co de Phone Number [facility] * Lab Scan (02/16/2015) Blood specimen (specimen) Provider External LAB BLOOD ORDERABLES Final Res ult Performing Organization Address [facility] Co de Phone Number [facility] documented in this encounter Visit Diagnoses Not on filedocumented in this encounter Additional Health Concerns Infection Onset Date Last Indicated Resolved Time COVID-19 03/05/2022 03/05/2022 03/15/2022 7:18 PM EDT documented as of this encounter Care Teams Manager Restaurant Relationship Specialty Start Date End Date Caitlyn Bowie MD 3400 [facility] 1 [place] [address] PCP - General Internal Medicine 05/06/21 Henry Kelly MD Pulmonary Department 175 [facility], [address] [place] [address] Physician Pulmonary Disease 09/06/17 06/22/20 documented as of this encounter
--- OUTSIDE RECORDS SUMMARY | 2024-10-23 17:54 | XMS_ITS | Encounter Summary ---
Author Organization [facility] and [facility] Address [address] [place] [address] Care Team Providers Care Cookie Breaker Name Role Phone Caitlyn Bowie MD Primary Care Provider +1- [phone] Encounter Details Date Type Department Care Team (Late Contact Info) Description 01/13/2021 Scanned Document [facility] [address] [address] External, Provider Social History Tobacco Use Types [...] EDT Office Visit H[facility]ology Program at [address] [place], [place] [address] Ronald Mills MD [address] [phone] documented as of this encounter [...] documented as of this encounter Care Teams Cookie Breaker Relationship Specialty Start Date End Date Caitlyn Bowie MD [facility] [address] [address] PCP - General Internal Medicine 05/06/21 documented as of this encounter
--- OUTSIDE RECORDS SUMMARY | 2024-10-23 17:54 | XMS_ITS | Encounter Summary ---
Author Organization [facility] and [facility] Address [address] [place] [phone] Care Team Providers Care Contracts Paralegal Name Role Phone Caitlyn Bowie MD Primary Care Provider +1- [phone] Encounter Details Date Type Department Care Team (Late st Contact Info) Description 07/31/2015 Scanned Document [facility] Health Information Management [address] [place] [address] External, Provider Social History Tobacco Use Types [...] Office Visit [facility] at [address] [place] [address] Ronald Mills MD [address] [place] [phone] documented as of this encounter Procedures Procedure Name Priority Date/Time Associated Diagnosis Comments NUC MED/PET RESULT SCAN Routine 07/31/2015 documented in this encounter Results * Nuc Med/PET Result Scan (07/31/2015) us Provider External IMG SCAN REPORTS Edited Result - Final Performing Organization Address City/State/[facility] Co de Phone Number [facility] [place], [place], [facility] documented in this encounter Visit Diagnoses Not on filedocumented in this encounter Additional Health Concerns Infection Onset Date Last Indicated Resolved Time COVID-19 03/05/2022 03/05/2022 03/15/2022 7:18 PM EDT documented as of this encounter Care Teams Contracts Paralegal Relationship Specialty Start Date End Date Caitlyn Bowie MD 3400 [facility] 1 [place] [address] PCP - General Internal Medicine 05/06/21 Henry Kelly MD Pulmonary Department 175 [facility], [address] [place] [address] Physician Pulmonary Disease 09/06/17 06/22/20 documented as of this encounter
--- OUTSIDE RECORDS SUMMARY | 2024-10-23 17:54 | XMS_ITS | Encounter Summary ---
Author Organization [facility] and [facility] Address [address] [place] [address] Care Team Providers Care Event Specialist Food Demonstrator Name Role Phone Caitlyn Bowie MD Primary Care Provider +1- [phone] Encounter Details Date Type Department Care Team (Late st Contact Info) Description 11/09/2020 Scanned Document INTERFACE DEFAULT [address] [place] [phone] System, Provider Not In Social History Tobacco [...] Office Visit [facility] at [address] - [address] [place] [address] Ronald Mills MD [address] [place] [phone] documented as of this encounter Visit Diagnoses Not on filedocumented in this encounter Additional Health Concerns Infection Onset Date Last Indicated Resolved Time COVID-19 03/05/2022 03/05/2022 03/15/2022 7:18 PM EDT Assessment Noted Time PHQ-9 Depression Total Score: 2 11/07/19 19 2:06 PM EDT documented as of this encounter Care Teams Event Specialist Food Demonstrator Relationship Specialty Start Date End Date Caitlyn Bowie MD [address] [address] PCP - General Internal Medicine 05/06/21 documented as of this encounter
--- OUTSIDE RECORDS SUMMARY | 2024-10-23 17:54 | XMS_ITS | Encounter Summary ---
Author Organization [facility] and [facility] Address [address] [place] [phone] Care Team Providers Care Vocal Music Instructor Name Role Phone Caitlyn Bowie MD Primary Care Provider +1- [phone] Encounter Details Date Type Department Care Team (Late st Contact Info) Description 11/09/2014 Scanned Document [facility] Health Information Management [address] [place] [address] External, Provider Social History Tobacco Use Types [...] Office Visit [facility] at [address] - [address] [place] [address] Ronald Mills MD [address] [place] [phone] documented as of this encounter Visit Diagnoses Not on filedocumented in this encounter Additional Health Concerns Infection Onset Date Last Indicated Resolved Time COVID-19 03/05/2022 03/05/2022 03/15/2022 7:18 PM EDT documented as of this encounter Care Teams Vocal Music Instructor Relationship Specialty Start Date End Date Caitlyn Bowie MD 3400 [facility] 1 [place] [address] PCP - General Internal Medicine 05/06/21 Henyr Kelly MD Pulmonary Department 175 [facility], [address] [place] [address] Physician Pulmonary Disease 09/06/17 06/22/20 documented as of this encounter
--- OUTSIDE RECORDS SUMMARY | 2024-10-23 17:54 | XMS_ITS | Encounter Summary ---
Author Organization [facility] and [facility] Address [address] [place] [address] Care Team Providers Care Counselling Psychologist Name Role Phone Caitlyn Bowie MD Primary Care Provider +1- [phone] Reason for Visit * Reason Comments Other Encounter Details Date Type Department Care Team (Late st Contact Info) Description 01/12/2021 Telephone [facility] at [address] - [address] [phone] Ronald Mills MD [address] [place] [phone] Other Social History Tobacco Use Types [...] AM EDT Lab orders were faxed to [facility] @ [phone]. Patient notified by phone. * Telephone Encounter - Kathleen Nasima - 01/12/2021 8:46 AM EDT Pt called looking to speak with Kirstin RE: lab orders sent to lab [facility] lab Looking to have labs sent there A.S.A.P at some point today She is scheduled with Dr. Mills on January 28 documented in this encounter Plan of Treatment Upcoming Encounters Date Type Department Care Team (Late st Contact Info) Description 10/31/2024 1:00 PM EDT Office Visit [facility] at [address] - [address] [address] Ronald Mills MD [address] [phone] documented as of this encounter Visit Diagnoses Not on filedocumented in this encounter Additional Health Concerns Infection Onset Date Last Indicated Resolved Time COVID-19 03/05/2022 03/05/2022 03/15/2022 7:18 PM EDT Assessment Noted Time PHQ-9 Depression Total Score: 2 11/07/19 19 2:06 PM EDT documented as of this encounter Care Teams Counselling Psychologist Relationship Specialty Start Date End Date Caitlyn Bowie MD [address] [address] PCP - General Internal Medicine 05/06/21 documented as of this encounter
--- OUTSIDE RECORDS SUMMARY | 2024-10-23 17:54 | XMS_ITS | Encounter Summary ---
Author Organization [facility] and [facility] Address [address] [place] [phone] Care Team Providers Care Environmental Programs Manager Name Role Phone Caitlyn Bowie MD Primary Care Provider +1- [phone] Encounter Details Date Type Department Care Team (Late Contact Info) Description 01/28/2018 Scanned Document [facility] Health Information Management [address] [place] [address] External, Provider Social History Tobacco Use Types [...] EDT Office Visit [facility] at [address] [place] [address] Ronald Mills MD [address] [place] [phone] documented as of this encounter Procedures [...] as of this encounter Care Teams Environmental Programs Manager Relationship Specialty Start Date End Date Caitlyn Bowie MD 3400 [facility] 1 [place] [address] PCP - General Internal Medicine 05/06/21 Henry Kelly MD Pulmonary Department [address] [place] [address], [address] [place] [address] Physician Pulmonary Disease 09/06/17 06/22/20 documented as of this encounter
--- OUTSIDE RECORDS SUMMARY | 2024-10-23 17:54 | XMS_ITS | Encounter Summary ---
Author Organization [facility] Address [address] [place] [address] Care Team Providers Care Customer Engagement Analyst Name Role Phone Caitlyn Bowie MD Primary Care Provider +1- [phone] Encounter Details Date Type Department Care Team (Late st Contact Info) Description 02/01/2018 Scanned Document [facility] Health Information Management [address] [place] [address] External, Provider Social History Tobacco Use Types [...] Office Visit [facility] at [address] [place] [address] Ronald Mills MD [address] [place] [phone] documented as of this encounter Procedures [...] as of this encounter Care Teams Customer Engagement Analyst Relationship Specialty Start Date End Date Caitlyn Bowie MD 3400 [facility] 1 [place] [address] PCP - General Internal Medicine 05/06/21 Henry Kelly MD Pulmonary Department 175 [facility], [address] [place] [address] Physician Pulmonary Disease 09/06/17 06/22/20 documented as of this encounter
--- OUTSIDE RECORDS SUMMARY | 2024-10-23 17:54 | XMS_ITS | Encounter Summary ---
Author Organization [facility] and [facility] Address [address] [place] [phone] Care Team Providers Care Private Pilot Name Role Phone Caitlyn Bowie MD Primary Care Provider +1- [phone] Encounter Details Date Type Department Care Team (Late Contact Info) Description 02/03/2021 Scanned Document [facility] Health Information Management [address] [place] [phone] External, Provider Social History Tobacco Use Types [...] Office Visit [facility] at [address] [place] [address] Ronald Mills MD [address] [place] [phone] documented as of this encounter Procedures [...] as of this encounter Care Teams Private Pilot Relationship Specialty Start Date End Date Caitlyn Bowie MD [address] [address] PCP - General Internal Medicine 05/06/21 documented as of this encounter
--- OUTSIDE RECORDS SUMMARY | 2024-10-23 17:54 | XMS_ITS | Data Portability ---
Author Organization [place] [facility], [facility] Address [address] [place] [address] Care Team Providers Care Metal Trades Instructor Name Role Phone EVELIN RAMSAY Primary Care [...] 911 activated Plan/Discussion: EMS handoff given to [facility] In order to obtain further information and compare any laboratory results/values, I have accessed old patient records. This information was pertinent in my medical decision making today. [email or web address] Not available 03/14/2021 13:20:46 07/18/2021 07/18/2021 Overview/History [...] as of yet. -She is educated to burr picker stool softeners to help promote BM [...] I have accessed patient records on the [employer] and old patient records. This [...] after care of this patient according to [facility]'s infection prevention protocols. Time On [...] on her pillow approximately 3 [place] when she woke this morning. She has [...] after care of this patient according to [facility]'s infection prevention protocols. [email or web address] Not available 12/29/2021 14:43:37 Plan of Treatment Reminders Order Date Submit Date Provider Last Modified By Organization Details Last Modified Time Details Appointments None recorded. Lab None recorded. Referral None recorded. Procedures None recorded. Surgeries None recorded. Imaging None recorded. Medication Orders docusate sodium 100 mg capsule 2021 022 lnovia [id number], [address] [facility] [facility], [place], [address], 19:28:14 Patient TargetsNo targets recorded. Patient Instructions Encounter Date Encounter Id Patient Instructions Last Modified By Organization Details Last Modified Time 03/14/2021 [id number] Thank you for yo ur visit with [facility] today. You were seen today [...] in your condition between 8am-10pm, please call [facility] at [phone] to help navigate your care. [email or web address] Not available 03/14/2021 12:46:32 10/18/2021 [id number] It was great to see you today! Thank you for letting [facility] assist you in your medical needs today. [...] follow up with your PCP please contact [facility] for [facility]-evaluation. Please present to [...] INR 1.2 0.9-1. 2 Not Available [place] [facility] [address] [facility] [place], [address], 02/11/2021 16:58:14 02/12/20 21 02/11/2021 , sylvia vance lower extre mity No observ ation record ed. [address] (Imaging) [address] [place], [address], 02/12/2021 08:19:41 Result Notes None recorded. Problems Name Problem SNOMED Code Status Onset Date Resolution Date Notes Provider Name and Address Organization Details Recorded Time Chronic obstructive pulmonary disease 73029234 Active 2018 ARCELIA PATELALON WINSTON [address], [place], [address], [place] [facility] 9 12:59:21 Problem Notes None recorded. Procedures Surgical History Date Name Laterality Status Provider Name and Address Organization Details Recorded Time Total Hysterectomy completed Cristine Sidhu, SALON STYLIST [address], [place], [address], [place] [facility] 10/18/2021 19:39:45 lobectomy of lung completed Cristine frazier, SALON STYLIST [address], [place], [address], [place] [facility] 10/18/2021 19:40:05 Remove tonsils and adenoids completed Cristine Sidhu, ALON [address], [place], [address], [place] [facility] 10/18/2021 19:40:22 Imaging Results Imaging Date Name Status LastModified by Organiz ation Details LastModified Time 02/11/2021 US, duplex, venous, lower extremity completed [address] (Imaging) [address] [place], [address], 02/12/2021 08:19:41 Procedure Notes None recorded. Medical Equipment None Reported. Allergies Allergen ID Allergen Name Allergen Category Reaction Reaction Severity Criticality Documentation Date Start Date Code Code System Note Provider Name and Address Organization Details Recorded Time 53752 Product containin g penicilli n (product) medicatio n Not available Not available Not available 06/15/2019 59836 8001 SNOMED ARCELIA PATELTISH [employer] [address], [place], [address], [place] [facility] 9 12:56:48 33824 Substance with sulfonami de structure and antibacte rial mechanism of action (substanc e) medicatio n Not available Not available Not available 06/15/2019 79283 8003 SNOMED ARCELIA FAJARDO , SALON STYLIST [address], [place], [address], [place] [facility] 9 12:56:54 87246 Voltaren medicatio n Not available Not available Not available 06/15/201957804 6 RxNorm ARCELIA FAJARDO , SALON STYLIST [address], [facility] [place], [address], [place] [facility] 9 12:57:01 44847 Iodinated contrast media (substanc e) medicatio n Not available Not available Not available 06/15/2019 05799 2004 SNOMED ARCELIA FAJARDO , SALON STYLIST [address], [place], [address], [place] [facility] 9 12:57:07 35624 vancomyci n medicatio n Not available Not available Not available 06/15/2019 25636 RxNorm ARCELIA FAJARDO , SALON STYLIST [address], [facility] [place], [address], [place] [facility] 9 12:57:14 05217 gentamici n medicatio n Not available Not available Not available 06/15/2019 02973 50 RxNorm ARCELIA FAJARDO , SALON STYLIST [address], [place], [address], [place] [facility] 9 12:57:20 81717 Biaxin medicatio n Not available Not available Not available 06/15/201934692 9 RxNorm ARCELIA FAJARDO , SALON STYLIST [address], [place], [address], [place] [facility] 9 12:57:27 23353 Avelox medicatio n Not available Not available Not available 06/15/2019 79068 6 RxNorm ARCELIA FAJARDO , [employer] [address], [place], [address], [place] [facility] 9 12:57:34 69101 erythromy jaylon medicatio n Not available Not available Not available 06/15/2019 4053 RxNorm ARCELIA FAJARDO , SALON STYLIST [address], [place], [address], [place] [facility] 9 12:57:41 92282 Zithromax medicatio n Not available Not available Not available 06/15/2019 66389 4 RxNorm ARCELIA FAJARDO , SALON STYLIST [address], [facility] [place], [address], [place] [facility] 9 12:57:51 55288 Levaquin medicatio n Not available Not available Not available 06/15/2019 13633 2 RxNorm ARCELIA FAJARDO , SALON STYLIST [address], [place], [address], [place] [facility] 9 12:58:02 14908 Cipro medicatio n Not available Not available Not available 06/15/2019 94100 3 RxNorm ARCELIA FAJARDO , SALON STYLIST [address], [place], [address], [place] [facility] 9 12:58:08 57325 morphine medicatio n Not available Not available Not available 06/15/2019 7052 RxNorm ARCELIA FAJARDO , SALON STYLIST [address], [place], [address], [place] [facility] 9 12:58:20 18939 procaine hydrochlo ride medicatio n Not available Not available Not available 06/15/2019 59204 8 RxNorm ARCELIA FAJARDO , SALON STYLIST [address], [place], [address], [place] [facility] 9 12:58:42 20171 barium sulfate medicatio n Not available Not available Not available 06/15/2019 1331 RxNorm ARCELIA FAJARDO , SALON STYLIST [address], [facility] [place], [address], [place] [facility] 9 12:58:54 56726 Gastrogra fin medicatio n Not available Not available Not available 06/15/2019 55554 5 RxNorm ARCELIA FAJARDO , [employer] STYLIST [address], [place], [address], [place] [facility] 9 12:59:01 74097 Flagyl medicatio n Not available Not available Not available 06/15/201960463 6 RxNorm ARCELIA FAJARDO , ALON [address], [place], [address], [place] [facility] 9 12:59:06 90160 shrimp allergeni c extract food Not available Not available Not available 06/15/2019 59413 2 RxNorm ARCELIA FAJARDO , SALON STYLIST [address], [place], [address], [place] [facility] [...] completed Not Available Not Available Not Available [facility] 100,000 unit/gram topical powder APPLY [...] [degF] 114 mm[Hg] 62 mm[Hg] Not Available [facility] 1 12:53:01 Date Recorded Respiratory rate Oxygen saturation Oxygen saturation in Arterial blood by Pulse oximetry Heart rate Body temperature Systolic blood pressure Diastolic blood pressure Provider Name and Address Organization Details Last Updated DateTime 2 18 /min 98 % 98 % 84 /min 98.9 [degF] 112 mm[Hg] 58 mm[Hg] Not Available [facility] 2 11:16:01 Date Recorded Heart rate Oxygen saturation Oxygen saturation in Arterial blood by Pulse oximetry Respiratory rate Body temperature Systolic blood pressure Diastolic blood pressure Systolic blood pressure Diastolic blood pressure Provider Name and Address Organization Details Last Updated DateTime 2 80 /min 96 % 96 % 18 /min 98.9 [degF] 142 mm[Hg] 66 mm[Hg] 128 mm[Hg] 60 mm[Hg] Not Available [facility] 2 20:16:17 Date Recorded Oxygen saturation Oxygen saturation in Arterial blood by Pulse oximetry Heart rate Respiratory rate Body temperature Systolic blood pressure Diastolic blood pressure Provider Name and Address Organization Details Last Updated DateTime 2 96 % 96 % 77 /min 18 /min 98.6 [degF] 122 mm[Hg] 60 mm[Hg] Not Available [facility] 2 13:41:00 Social History Question Answer Notes LastModified by Organizat ion Details LastModified Time Tobacco Smoking Status Never Smoker ARCELIA FAJARDO NP [address] [place], [address], [place] [facility] 06/15/2019 13:05:25 Do You Have An Advance [...] Response Diabetes N Cancer Y Stroke N Hypothyroidism Y COPD Y High Cholesterol Y Pulmonary Embolism Y Hypertension N Kidney Disease N Gynecological HistoryNo gynecological history recorded. Obstetrics History GPAL:G 0 P 0 0 0 0 Past Encounters Encounter ID Performer Location Encounter Start Date Encounter Closed Date Diagnosis/Indication Diagnosis SNOMED-CT Code Diagnosis ICD10 Code Diagnosis Note [id number] ARCELIA FAJARDO NP [facility] [address] [facility] [place] [address] 06/15/2019 12:54:37 06/17/2019 13:06:33 Excoriation of skin 156003779 T14.8XXA [id number] JANIS GILBERT NP [facility] [address] [facility] [place] [address] 11/13/2019 16:03:00 11/18/2019 14:53:37 Pain in lower limb 18607656 M79.661 [id number] ARCELIA FAJARDO NP [facility] [address] [place] [facility] [place] [address] 03/14/2020 20:02:43 03/18/2020 21:30:46 Traumatic hematoma 464181084 T14.8XXA Long-term current use of anticoagulant 102493786 Z79.01 Pain in left foot 704899 6772 49018 M79.672 [id number] EMELIA TOMPKINS [facility] [address] [place] [place] [address] 03/20/2020 12:50:59 03/23/2020 17:54:28 Contusion of lower leg 62222249 S80.10XA Swelling of lower leg 44 7012237 R22.42 [id number] [facility] [address] [facility] [place] [address] 09/29/2020 11:41:21 09/29/2020 12:38:57 Pain of intercostal space 672243591 R07.82 Exposure t o communicable disease 434353304 Z20.822 [id number] Waleska Matos, SALON STYLIST [facility] [address] [facility] [place] [address] 02/11/2021 16:34:32 02/12/2021 11:08:44 Hematoma of lower leg 925428328 S80.11XA [id number] JAMES RADHA [employer]ON STYLIST [facility] [address] [facility] [place] [address] 03/14/2021 12:45:30 03/19/2021 14:09:43 Abdominal pain 71796707 R10.9 [id number] EMELIA Alfonso [facility] [address] [facility] [place] [address] 07/18/2021 10:56:56 07/22/2021 23:43:22 Constipation 70919003 K59.00 Left lower quadrant pain 855263797 R10.32 [id number] Cristine Sidhu NP [facility] - [facility] [address] [facility] [place] [address] 10/18/2021 19:17:00 11/10/2021 16:33:03 Left sided abdominal pain 896502276 R10.9 Hematoma of lower leg 44 4213238 S80.10XA Long-term current use of anticoagulant 809786466 Z79.01 [id number] Cristine Sidhu NP [facility] [address] [facility] [place] [address] 12/29/2021 13:36:24 12/30/2021 10:20:27 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 D68.2 [id number] Olivia Goldberg [employer] STYLIST [facility] - [facility] [address] [facility] [place] [address] 01/18/2023 14:00:39 01/18/2023 15:01:49 Health Concerns Section Related Observation LastModified by Organization Detai ls LastModified Time None Recorded Concern Status LastModified by Organization Details LastModified Time None Recorded Advance Directives Directive Y: Payers Encounter Date Sequence Insurance Name Policy Number Policy Pettit Covered Member ID Pettit Member ID Guarantor Name 03/14/2021 1 [place] [employer] Jovana Malik [id number] Jovana Malik 03/14/2021 2 [place] [id number] Jovana Steinino [id number] Jovana Steinino 07/18/2021 1 [place]: [facility] Jovana Malik [id number] Jovana Steinino 07/18/2021 2 [place] [id number] Jovana Steinino [id number] Jovana Steinino 10/18/2021 1 [place] [facility] Jovana Steinino [id number] Jovana Helena 10/18/2021 2 [place] [id number] Jovana Steinino [id number] Jovana Steinino 12/29/2021 1 [place] [facility] Jovana Malik [id number] Jovana Helena 12/29/[address] [facility] ([place] [id number] Jovana Steinino [id number] Jovana Steinino 01/18/2023 1 [place] [facility] Jovana Malik [id number] Jovana [place] 01/18/2023 2 [place] [employer] [place] [id number] Jovana Steinino [id number] Jovana Malik Notes Date Note Type Note Provider Name and Address Organization Details Recorded Time 1 text/html This is a 75-year-old female, known to [facility], who calls with concerns for [...] intake. JAMES GARCIA NP [address], [place], [address], [place] [facility] 03/14/2021 13:21:32 2 text/html [...] asscociated sx's. EMELIA Ni [address], [place], [address], [place] [facility] 07/18/2021 12:04:00 2 text/html [...] evaluated. Cristine Sidhu NP [address], [place], [address], [place] [facility] 11/09/2021 02:11:05 2 text/html [...] supernatural. Cristine Sidhu NP [address], [place], [address], [place] [facility] 12/29/2021 14:43:53 3 text/html pt did not answer, visit canceled Olivia Goldberg NP [address], [place], [address], [place] [facility] 01/18/2023 19:34:36 OBGyn Episode No OBEpisode recorded.
--- OUTSIDE RECORDS SUMMARY | 2024-10-23 17:54 | XMS_ITS | Encounter Summary ---
Author Organization [facility] Address [address] [place] [address] Care Team Providers Care V Belt Inspector Name Role Phone Caitlyn Bowie MD Primary Care Provider +1- [phone] Encounter Details Date Type Department Care Team (Late st Contact Info) Description 04/18/2018 Scanned Document [facility] Information Management [address] [place] [address] External, Provider Social History Tobacco Use Types [...] [facility] Visit [facility] [address] [place] [address] Ronald Mills MD [address] [place] [address] documented as of this encounter Procedures [...] documented as of this encounter Care Teams V Belt Inspector Relationship Specialty Start Date End Date Caitlyn Bowie MD [address] [facility] [address] [place] [address] PCP - General Internal Medicine 05/06/21 Henry Kelly MD Pulmonary Department [address] [facility] [place] [address] Physician Pulmonary Disease 09/06/17 06/22/20 documented as of this encounter
--- OUTSIDE RECORDS SUMMARY | 2024-10-23 17:54 | XMS_ITS | Encounter Summary ---
Author Organization [facility] Address [address] [place] [address] Care Team Providers Care Passport Support Associate Name Role Phone Caitlyn Bowie MD Primary Care Provider +1- [phone] Encounter Details Date Type Department Care Team (Late Contact Info) Description 01/27/[address] [facility] Health Information Management [address] [place] [address] External, Provider Social History Tobacco Use Types [...] [facility] Visit [facility] [address] [place] [address] Ronald Mills MD [address] [place] [phone] documented as of this encounter Procedures [...] documented as of this encounter Care Teams Passport Support Associate Relationship Specialty Start Date End Date Caitlyn Bowie MD [address] [facility] 1 [place] [address] PCP - General Internal Medicine 05/06/21 Henry Kelly MD Pulmonary Department [address] [facility] [place] [address] Physician Pulmonary Disease 09/06/17 06/22/20 documented as of this encounter
--- OUTSIDE RECORDS SUMMARY | 2024-10-23 17:54 | XMS_ITS | Encounter Summary ---
Author Organization [facility] Address [address] [place] [address] Care Team Providers Care Automatic Beam Warper Tender Name Role Phone Caitlyn Bowie MD Primary Care Provider +1- [phone] Encounter Details Date Type Department Care Team (Late st Contact Info) Description 02/19/2015 Scanned Document [facility] Health Information Management [address] [place] [address] External, Provider Social History Tobacco Use Types [...] [facility] Visit [facility] [address] [place] [address] Ronald Mills MD [address] [place] [phone] documented as of this encounter Procedures Procedure Name Priority Date/Time Associated Diagnosis Comments LAB SCAN Routine 02/19/2015 documented in this encounter Results * Lab Scan (02/19/2015) Blood specimen (specimen) us Provider External LAB BLOOD ORDERABLES Final Res ult [facility] documented in this encounter Visit Diagnoses Not on filedocumented in this encounter Additional Health Concerns Infection Onset Date Last Indicated Resolved Time COVID-19 03/05/2022 03/05/2022 03/15/2022 7:18 PM EDT documented as of this encounter Care Teams Automatic Beam Warper Tender Relationship Specialty Start Date End Date Caitlyn Bowie MD [address] [facility] 1 [place] [address] PCP - General Internal Medicine 05/06/21 Henry Kelly MD Pulmonary Department [address] [facility], [address] [place] [address] Physician Pulmonary Disease 09/06/17 06/22/20 documented as of this encounter
--- OUTSIDE RECORDS SUMMARY | 2024-10-23 17:54 | XMS_ITS | Encounter Summary ---
Author Organization [facility] Address [address] [place] [address] Care Team Providers Care Manager Of Training Name Role Phone Caitlyn Bowie MD Primary Care Provider +1- [phone] Encounter Details Date Type Department Care Team (Late Contact Info) Description 01/26/2018 Scanned Document [facility] Health Information Management [address] [place] [address] External, Provider Social History Tobacco Use Types [...] EDT Office Visit [facility] [address] [place] [address] Ronald Mills MD [address] [place] [phone] documented as of this encounter Procedures [...] of this encounter Care Teams Manager Of Training Relationship Specialty Start Date End Date Caitlyn Bowie MD [address] [facility] 1 [place] [address] PCP - General Internal Medicine 05/06/21 Henry Kelly MD Pulmonary Department [address] [facility], [address] [place] [address] Physician Pulmonary Disease 09/06/17 06/22/20 documented as of this encounter
--- OUTSIDE RECORDS SUMMARY | 2024-10-23 17:54 | XMS_ITS | Encounter Summary ---
Author Organization [facility] Address [address] [place] [address] Care Team Providers Care Pole Incisor Operator Name Role Phone Caitlyn Bowie MD Primary Care Provider +1- [phone] Encounter Details Date Type Department Care Team (Late st Contact Info) Description 02/03/2021 Scanned Document INTERFACE DEFAULT [address] [place] [address] System, Provider Not In Social History Tobacco [...] EDT [facility] Visit [facility] [address] [place] [address] Ronald Mills MD [address] [place] [phone] documented as of this encounter Procedures [...] documented as of this encounter Care Teams Pole Incisor Operator Relationship Specialty Start Date End Date Caitlyn Bowie MD [address] [address] PCP - General Internal Medicine 05/06/21 documented as of this encounter
--- OUTSIDE RECORDS SUMMARY | 2024-10-23 17:54 | XMS_ITS | Encounter Summary ---
Author Organization [facility] Address [address] [place] [address] Care Team Providers Care Veterinary Practitioner Name Role Phone Caitlyn Bowie MD Primary Care Provider +1- [phone] Encounter Details Date Type Department Care Team (Late st Contact Info) Description 02/02/2018 Scanned Document [facility] Health Information Management [address] [place] [address] External, Provider Social History Tobacco Use Types [...] EDT Office Visit [facility] [address] [place] [address] Ronald Mills MD [address] [place] [phone] documented as of this encounter Procedures [...] as of this encounter Care Teams Veterinary Practitioner Relationship Specialty Start Date End Date Caitlyn Bowie MD [address] [facility] [address] 1 [place] [address] PCP - General Internal Medicine 05/06/21 Henry Kelly MD Pulmonary Department 175 [facility], [address] [place] [address] Physician Pulmonary Disease 09/06/17 06/22/20 documented as of this encounter
--- OUTSIDE RECORDS SUMMARY | 2024-10-23 17:54 | XMS_ITS | Encounter Summary ---
Author Organization [facility] Address [address] [place] [address] Care Team Providers Care Rotary Cutter Operator Name Role Phone Caitlyn Bowie MD Primary Care Provider +1- [phone] Encounter Details Date Type Department Care Team (Late st Contact Info) Description 06/25/2015 Scanned Document [facility] Health Information Management [address] [place] [address] External, Provider Social History Tobacco Use Types [...] Office Visit [facility] [address] [place] [address] Ronald Mills MD [address] [place] [phone] documented as of this encounter Visit Diagnoses Not on filedocumented in this encounter Additional Health Concerns Infection Onset Date Last Indicated Resolved Time COVID-19 03/05/2022 03/05/2022 03/15/2022 7:18 PM EDT documented as of this encounter Care Teams Rotary Cutter Operator Relationship Specialty Start Date End Date Caitlyn Bowie MD 34[address] [facility] 1 [place] [address] PCP - General Internal Medicine 05/06/21 Henry Kelly MD Pulmonary Department 175 [facility], [address] [place] [address] Physician Pulmonary Disease 09/06/17 06/22/20 documented as of this encounter
--- OUTSIDE RECORDS SUMMARY | 2024-10-23 17:54 | XMS_ITS | Encounter Summary ---
Author Organization [facility] and [facility] Address [address] [place] [address] Care Team Providers Care Client Account Assistant Name Role Phone Caitlyn Bowie MD Primary Care Provider +1- [phone] Encounter Details Date Type Department Care Team (Late st Contact Info) Description 11/07/2014 Scanned Document [facility] Health Information Management [address] [place] [address] External, Provider Social History Tobacco Use Types [...] [facility] Visit [facility] at [address] [place] [address] Ronald Mills MD [address] [place] [phone] documented as of this encounter Visit Diagnoses Not on filedocumented in this encounter Additional Health Concerns Infection Onset Date Last Indicated Resolved Time COVID-19 03/05/2022 03/05/2022 03/15/2022 7:18 PM EDT documented as of this encounter Care Teams Client Account Assistant Relationship Specialty Start Date End Date Caitlyn Bowie MD 3400 [facility] 1 [place] [address] PCP - General Internal Medicine 05/06/21 Henry Kelly MD Pulmonary Department 175 [facility], [address] [place] [address] Physician Pulmonary Disease 09/06/17 06/22/20 documented as of this encounter
--- OUTSIDE RECORDS SUMMARY | 2024-10-23 17:54 | XMS_ITS | Encounter Summary ---
Author Organization [facility] and [facility] Address [address] [place] [address] Care Team Providers Care Distribution Center Manager Name Role Phone Caitlyn Bowie MD Primary Care Provider +1- [phone] Encounter Details Date Type Department Care Team (Late Contact Info) Description 01/27/2021 Scanned Document [facility] at [address] [address] External, Provider Social History Tobacco Use Types [...] EDT Office Visit Hematology Program at [address] - [address] [place], [place] [address] Ronald Mills MD [address] [phone] documented as of this encounter [...] Date End Date Caitlyn Bowie MD [facility] [address] [address] PCP - General Internal Medicine 05/06/21 documented as of this encounter
--- OUTSIDE RECORDS SUMMARY | 2024-10-23 17:54 | XMS_ITS | Encounter Summary ---
Author Organization [facility] and [facility] Address [address] [place] [address] Care Team Providers Care Post Tronic Machine Operator Name Role Phone Caitlyn Bowie MD Primary Care Provider +1- [phone] Encounter Details Date Type Department Care Team (Late st Contact Info) Description 03/11/2015 Scanned Document [facility] Health Information Management [address] [place] [address] External, Provider Social History Tobacco Use Types [...] Office Visit [facility] at [address] - [address] [place] [address] Ronald Mills MD [address] [place] [phone] documented as of this encounter Procedures Procedure Name Priority Date/Time Associated Diagnosis Comments LAB SCAN Routine 03/11/2015 documented in this encounter Results * Lab Scan (03/11/2015) Blood specimen (specimen) us Provider External LAB BLOOD ORDERABLES Edited Re germánt - Final [facility] [place], [facility] documented in this encounter Visit Diagnoses Not on filedocumented in this encounter Additional Health Concerns Infection Onset Date Last Indicated Resolved Time COVID-19 03/05/2022 03/05/2022 03/15/2022 7:18 PM EDT documented as of this encounter Care Teams Post Tronic Machine Operator Relationship Specialty Start Date End Date Caitlyn Bowie MD 3400 [facility] 1 [place] [address] PCP - General Internal Medicine 05/06/21 Henry Kelly MD Pulmonary Department 175 [facility], [address] [place] [address] Physician Pulmonary Disease 09/06/17 06/22/20 documented as of this encounter
--- OUTSIDE RECORDS SUMMARY | 2024-10-23 17:54 | XMS_ITS | Encounter Summary ---
Author Organization [facility] and [facility] Address [address] [place] [address] Care Team Providers Care Research Engineer Name Role Phone Caitlyn Bowie MD Primary Care Provider +1- [phone] Encounter Details Date Type Department Care Team (Late Contact Info) Description 01/26/2018 Scanned Document [facility] Health Information Management [address] [place] [address] External, Provider Social History Tobacco Use Types [...] Office Visit [facility] at [address] - [address] [place] [address] Ronald Mills MD [address] [place] [phone] documented as of this encounter Procedures [...] as of this encounter Care Teams Research Engineer Relationship Specialty Start Date End Date Caitlyn Bowie MD 3400 [facility] 1 [place] [address] PCP - General Internal Medicine 05/06/21 Henry Kelly MD Pulmonary Department 175 [facility], [address] [place] [address] Physician Pulmonary Disease 09/06/17 06/22/20 documented as of this encounter
--- OUTSIDE RECORDS SUMMARY | 2024-10-23 17:54 | XMS_ITS | Encounter Summary ---
Author Organization [facility] and [facility] Address [address] [place] [address] Care Team Providers Care Log Washer Name Role Phone Caitlyn Bowie MD Primary Care Provider +1- [phone] Encounter Details Date Type Department Care Team (Late st Contact Info) Description 04/28/2015 Scanned Document [facility] Health Information Management [address] [place] [address] External, Provider Social History Tobacco Use Types [...] EDT Office Visit [facility] at [address] - [address] [place] [address] Ronald Mills MD [address] [place] [phone] documented as of this encounter Visit Diagnoses Not on filedocumented in this encounter Additional Health Concerns Infection Onset Date Last Indicated Resolved Time COVID-19 03/05/2022 03/05/2022 03/15/2022 7:18 PM EDT documented as of this encounter Care Teams Log Washer Relationship Specialty Start Date End Date Caitlyn Bowie MD 3400 [facility] 1 [place] [address] PCP - General Internal Medicine 05/06/21 Henry Kelly MD Pulmonary Department 175 [facility], [address] [place] [address] Physician Pulmonary Disease 09/06/17 06/22/20 documented as of this encounter
--- OUTSIDE RECORDS SUMMARY | 2024-10-23 17:54 | XMS_ITS | Encounter Summary ---
Author Organization [facility] and [facility] Address [address] [place] [address] Care Team Providers Care Hedis Analyst Name Role Phone Caitlyn Bowie MD Primary Care Provider +1- [phone] Encounter Details Date Type Department Care Team (Late st Contact Info) Description 05/14/2015 Scanned Document [facility] Health Information Management [address] [place] [address] External, Provider Social History Tobacco Use Types [...] Office Visit [facility] at [address] - [address] [place] [address] Ronald Mills MD [address] [place] [phone] documented as of this encounter Visit Diagnoses Not on filedocumented in this encounter Additional Health Concerns Infection Onset Date Last Indicated Resolved Time COVID-19 03/05/2022 03/05/2022 03/15/2022 7:18 PM EDT documented as of this encounter Care Teams Hedis Analyst Relationship Specialty Start Date End Date Caitlyn Bowie MD 3400 [facility] 1 [place] [address] PCP - General Internal Medicine 05/06/21 Henry Kelly MD Pulmonary Department 175 [facility], [address] [place] [address] Physician Pulmonary Disease 09/06/17 06/22/20 documented as of this encounter
--- OUTSIDE RECORDS SUMMARY | 2024-10-23 17:54 | XMS_ITS | Encounter Summary ---
Author Organization [facility] and [facility] Address [address] [place] [address] Care Team Providers Care Bag Machine Operator Name Role Phone Caitlyn Bowie MD Primary Care Provider +1- [phone] Encounter Details Date Type Department Care Team (Late st Contact Info) Description 01/28/2018 Scanned Document [facility] Health Information Management [address] [place] [phone] External, Provider Social History Tobacco Use Types [...] EDT Office Visit [facility] at [address] - [address] [place] [address] Ronald Mills MD [address] [place] [phone] documented as of this encounter Visit Diagnoses Not on filedocumented in this encounter Additional Health Concerns Infection Onset Date Last Indicated Resolved Time COVID-19 03/05/2022 03/05/2022 03/15/2022 7:18 PM EDT documented as of this encounter Care Teams Bag Machine Operator Relationship Specialty Start Date End Date Caitlyn Bowie MD 3400 [facility] 1 [place] [address] PCP - General Internal Medicine 05/06/21 Henry Kelly MD Pulmonary Department [address] [place] [address], [address] [place] [address] Physician Pulmonary Disease 09/06/17 06/22/20 documented as of this encounter
--- OUTSIDE RECORDS SUMMARY | 2024-10-23 17:54 | XMS_ITS | Encounter Summary ---
Author Organization [facility] and [facility] Address [address] [place] [address] Care Team Providers Care Clipper And Turner Name Role Phone Caitlyn Bowie MD Primary Care Provider +1- [phone] Encounter Details Date Type Department Care Team (Late st Contact Info) Description 12/21/2020 Scanned Document INTERFACE DEFAULT [address] [place] [phone] System, Provider Not In Social History Tobacco [...] Office Visit [facility] at [address] - [address] [place] [address] Ronald Mills MD [address] [place] [phone] documented as of this encounter Visit Diagnoses Not on filedocumented in this encounter Additional Health Concerns Infection Onset Date Last Indicated Resolved Time COVID-19 03/05/2022 03/05/2022 03/15/2022 7:18 PM EDT Assessment Noted Time PHQ-9 Depression Total Score: 2 11/07/19 19 2:06 PM EDT documented as of this encounter Care Teams Clipper And Turner Relationship Specialty Start Date End Date Caitlyn Bowie MD [address] [address] PCP - General Internal Medicine 05/06/21 documented as of this encounter
--- OUTSIDE RECORDS SUMMARY | 2024-10-23 17:54 | XMS_ITS | Encounter Summary ---
Author Organization [facility] and [facility] Address [address] [place] [address] Care Team Providers Care Events Director Name Role Phone Caitlyn Bowie MD Primary Care Provider +1- [phone] Encounter Details Date Type Department Care Team (Late st Contact Info) Description 01/13/2021 Scanned Document [facility] Center at [address] [address] Ronald Mills MD [address] [place] [address] Social History Tobacco Use Types Packs/Day [...] PM EDT Office Visit Hematology Program at [address] - [address] [place] [address] Ronald Mills MD [address] [place] [address] documented as of this encounter Procedures Procedure Name Priority Date/Time Associated Diagnosis Comments LAB SCAN Routine 01/13/2021 documented in this encounter Results * Lab Scan (01/13/2021) us Ronald Mills MD LAB BLOOD ORDERABLES Final Resul t documented in this encounter Visit Diagnoses Not on filedocumented in this encounter Additional Health Concerns Infection Onset Date Last Indicated Resolved Time COVID-19 03/05/2022 03/05/2022 03/15/2022 7:18 PM EDT Assessment Noted Time PHQ-9 Depression Total Score: 2 11/07/19 19 2:06 PM EDT documented as of this encounter Care Teams Events Director Relationship Specialty Start Date End Date Caitlyn Bowie MD [address] [address] PCP - General Internal Medicine 05/06/21 documented as of this encounter
--- OUTSIDE RECORDS SUMMARY | 2024-10-23 17:54 | XMS_ITS | Encounter Summary ---
Author Organization [facility] and [facility] Address [address] [place] [address] Care Team Providers Care Supply Chain Vice President Name Role Phone Caitlyn Bowie MD Primary Care Provider +1- [phone] Encounter Details Date Type Department Care Team (Late st Contact Info) Description 05/01/2015 Scanned Document [facility] Health Information Management [address] [place] [address] External, Provider Social History Tobacco Use Types [...] Office Visit [facility] at [address] - [address] [place] [address] Ronald Mills MD [address] [place] [phone] documented as of this encounter Procedures [...] of this encounter Care Teams Supply Chain Vice President Relationship Specialty Start Date End Date Caitlyn Bowie MD [address] [facility] 1 [place] [address] PCP - General Internal Medicine 05/06/21 Henry Kelly MD Pulmonary Department 175 [facility], [address] [place] [address] Physician Pulmonary Disease 09/06/17 06/22/20 documented as of this encounter
--- OUTSIDE RECORDS SUMMARY | 2024-10-23 17:54 | XMS_ITS | Encounter Summary ---
Author Organization [facility] and [facility] Address [address] [place] [address] Care Team Providers Care Tone Cabinet Assembler Name Role Phone Caitlyn Bowie MD Primary Care Provider +1- [phone] Encounter Details Date Type Department Care Team (Late Contact Info) Description 04/03/2018 Scanned Document [facility] [address] [place] [address] Provider, historical . Social History Tobacco Use [...] EDT Office Visit Hematology Program at [address] - [address] [place] [address] Ronald Mills MD [address] [place] [phone] documented as of this encounter Procedures [...] documented as of this encounter Care Teams Tone Cabinet Assembler Relationship Specialty Start Date End Date Caitlyn Bowie MD 3400 [facility] 1 [place] [address] PCP - General Internal Medicine 05/06/21 Henry Kelly MD Pulmonary Department 175 [facility], [address] [place] [address] Physician Pulmonary Disease 09/06/17 06/22/20 documented as of this encounter
--- OUTSIDE RECORDS SUMMARY | 2024-10-23 17:54 | XMS_ITS | Encounter Summary ---
Author Organization [facility] and [facility] Address [address] [place] [address] Care Team Providers Care Commercial Loan Reviewer Name Role Phone Caitlyn Bowie MD Primary Care Provider +1- [phone] Encounter Details Date Type Department Care Team (Late st Contact Info) Description 03/26/2015 Scanned Document [facility] at [address] [place] [phone] Norma Renee MD [address] [place] [phone] Social History Tobacco Use Types Packs/Day Years [...] PM EDT Office Visit Hematology Program at [address] - [address] [address] Ronald Mills MD [address] [place] [phone] documented as of this encounter Visit Diagnoses Not on filedocumented in this encounter Additional Health Concerns Infection Onset Date Last Indicated Resolved Time COVID-19 03/05/2022 03/05/2022 03/15/2022 7:18 PM EDT documented as of this encounter Care Teams Commercial Loan Reviewer Relationship Specialty Start Date End Date Caitlyn Bowie MD 3400 [facility] [address] 1 [place] [address] PCP - General Internal Medicine 05/06/21 Henry Kelly MD Pulmonary Department 175 [facility], [address] [place] [address] Physician Pulmonary Disease 09/06/17 06/22/20 documented as of this encounter
--- OUTSIDE RECORDS SUMMARY | 2024-10-23 17:54 | XMS_ITS | Encounter Summary ---
Author Organization [facility] and [facility] Address [address] [place] [address] Care Team Providers Care Firearms Expert Name Role Phone Caitlyn Bowie MD Primary Care Provider +1- [phone] Encounter Details Date Type Department Care Team (Late st Contact Info) Description 01/26/2018 Scanned Document [facility] Health Information Management [address] [place] [address] External, Provider Social History Tobacco Use Types [...] Office Visit [facility] at [address] [place] [address] Ronald Mills MD [address] [place] [phone] documented as of this encounter Procedures [...] as of this encounter Care Teams Firearms Expert Relationship Specialty Start Date End Date Caitlyn Bowie MD 3400 [facility] 1 [place] [address] PCP - General Internal Medicine 05/06/21 Henry Kelly MD Pulmonary Department 175 [facility], [address] [place] [address] Physician Pulmonary Disease 09/06/17 06/22/20 documented as of this encounter
--- OUTSIDE RECORDS SUMMARY | 2024-10-23 17:54 | XMS_ITS | Encounter Summary ---
Author Organization [facility] and [facility] Address [address] [place] [address] Care Team Providers Care Nutrition Therapist Name Role Phone Caitlyn Bowie MD Primary Care Provider +1- [phone] Encounter Details Date Type Department Care Team (Late st Contact Info) Description 04/28/2015 Scanned Document [facility] Health Information Management [address] [place] [address] External, Provider Social History Tobacco Use Types [...] Office Visit [facility] at [address] - [address] [place] [address] Ronald Mills MD [address] [place] [phone] documented as of this encounter Procedures Procedure Name Priority Date/Time Associated Diagnosis Comments LAB SCAN Routine 04/28/2015 documented in this encounter Results * Lab Scan (04/28/2015) Blood specimen (specimen) us Provider External LAB BLOOD ORDERABLES Edited Re germánt - Final [facility] [place], [place], [facility] documented in this encounter Visit Diagnoses Not on filedocumented in this encounter Additional Health Concerns Infection Onset Date Last Indicated Resolved Time COVID-19 03/05/2022 03/05/2022 03/15/2022 7:18 PM EDT documented as of this encounter Care Teams Nutrition Therapist Relationship Specialty Start Date End Date Caitlyn Bowie MD 3400 [facility] 1 [place] [address] PCP - General Internal Medicine 05/06/21 Henry Kelly MD Pulmonary Department 175 [facility], [address] [place] [address] Physician Pulmonary Disease 09/06/17 06/22/20 documented as of this encounter
--- OUTSIDE RECORDS SUMMARY | 2024-10-23 17:54 | XMS_ITS | Encounter Summary ---
Author Organization [facility] and [facility] Address [address] [place] [address] Care Team Providers Care Community Engagement Coordinator Name Role Phone Caitlyn Bowie MD Primary Care Provider +1- [phone] Encounter Details Date Type Department Care Team (Late Contact Info) Description 01/30/2018 Scanned Document [facility] Health Information Management [address] [place] [address] External, Provider Social History Tobacco Use Types [...] EDT Office Visit [facility] at [address] [place] [address] Ronald Mills MD [address] [place] [phone] documented as of this encounter Procedures [...] as of this encounter Care Teams Community Engagement Coordinator Relationship Specialty Start Date End Date Caitlyn Bowie MD 3400 [facility] 1 [place] [address] PCP - General Internal Medicine 05/06/21 Henry Kelly MD Pulmonary Department [address] [place] [address], [address] [place] [address] Physician Pulmonary Disease 09/06/17 06/22/20 documented as of this encounter
--- OUTSIDE RECORDS SUMMARY | 2024-10-23 17:54 | XMS_ITS | Encounter Summary ---
Author Organization [facility] and [facility] Address [address] [place] [address] Care Team Providers Care Quitline Counselor Name Role Phone Caitlyn Bowie MD Primary Care Provider +1- [phone] Encounter Details Date Type Department Care Team (Late st Contact Info) Description 12/28/2021 Scanned Document INTERFACE DEFAULT [address] [place] [address] System, Provider Not In Social History Tobacco [...] Office Visit [facility] at [address] - [address] [place] [address] Ronald Mills MD [address] [place] [phone] documented as of this encounter Visit Diagnoses Not on filedocumented in this encounter Additional Health Concerns Infection Onset Date Last Indicated Resolved Time COVID-19 03/05/2022 03/05/2022 03/15/2022 7:18 PM EDT Assessment Noted Time PHQ-9 Depression Total Score: 2 11/07/19 19 2:06 PM EDT documented as of this encounter Care Teams Quitline Counselor Relationship Specialty Start Date End Date Caitlyn Bowie MD [address] [address] PCP - General Internal Medicine 05/06/21 documented as of this encounter
--- OUTSIDE RECORDS SUMMARY | 2024-10-23 17:54 | XMS_ITS | Encounter Summary ---
Author Organization [facility] and [facility] Address [address] [place] [address] Care Team Providers Care Fountain Attendant Name Role Phone Caitlyn Bowie MD Primary Care Provider +1- [phone] Encounter Details Date Type Department Care Team (Late st Contact Info) Description 04/16/2018 Scanned Document [facility] Health Information Management [address] [place] [phone] External, Provider Social History Tobacco Use Types [...] Office Visit [facility] at [address] [place] [address] Ronald Mills MD [address] [place] [phone] documented as of this encounter Visit Diagnoses Not on filedocumented in this encounter Additional Health Concerns Infection Onset Date Last Indicated Resolved Time COVID-19 03/05/2022 03/05/2022 03/15/2022 7:18 PM EDT documented as of this encounter Care Teams Fountain Attendant Relationship Specialty Start Date End Date Caitlyn Bowie MD 3400 [facility] 1 [place] [address] PCP - General Internal Medicine 05/06/21 Henry Kelly MD Pulmonary Department [address] [place] [address], [address] [place] [address] Physician Pulmonary Disease 09/06/17 06/22/20 documented as of this encounter
--- OUTSIDE RECORDS SUMMARY | 2024-10-23 17:54 | XMS_ITS | Encounter Summary ---
Author Organization [facility] and [facility] Address [address] [place] [address] Care Team Providers Care Rug Sizer Name Role Phone Caitlyn Bowie MD Primary Care Provider +1- [phone] Encounter Details Date Type Department Care Team ([facility] st Contact Info) Description 08/26/2014 Documentation [facility] [address] [place] [address] Shilpi Ibarra [address] [place] [address] Social History Tobacco Use Types Packs/Day Years [...] from the original note were not included. [facility] Progress Note This is a 69 y.o. female who was provided services by [facility]. Service Provided By:: Shilpi Ibarra Patient Status: return Length of Appointment: 60 minutes documented in this encounter Plan of Treatment Upcoming Encounters Date Type Department Care Team ([facility] st Contact Info) Description 10/31/2024 1:00 PM EDT Office Visit [facility] [address] [place] - [address] [facility] [place] [address] Ronald Mills MD 240 [facility] A1 [place] [address] documented as of this encounter Visit Diagnoses Not on filedocumented in this encounter Additional Health Concerns Infection Onset Date Last Indicated Resolved Time COVID-19 03/05/2022 03/05/2022 03/15/2022 7:18 PM EDT documented as of this encounter Care Teams Rug Sizer Relationship Specialty Start Date End Date Caitlyn Bowie MD 3400 [facility] 1 [place] [address] PCP - General Internal Medicine 05/06/21 Henry Kelly MD Pulmonary Department 175 [facility], [address] [place] [address] Physician Pulmonary Disease 09/06/17 06/22/20 documented as of this encounter
--- OUTSIDE RECORDS SUMMARY | 2024-10-23 17:55 | XMS_ITS | Encounter Summary ---
Author Organization [facility] and [facility] Address [address] [place] [address] Care Team Providers Care Chief Projectionist Name Role Phone Caitlyn Bowie MD Primary Care Provider +1- [phone] Encounter Details Date Type Department Care Team (Late st Contact Info) Description 11/19/2021 Scanned Document Cardiovascular Medicine at [address] [address] Norma Renee MD [address] [address] Social History Tobacco Use Types Packs/Day [...] EDT Office Visit Hematology Program at [address] - [address] [address] Ronald Mills MD [address] [place] [phone] documented as of this encounter Visit Diagnoses Not on filedocumented in this encounter Additional Health Concerns Infection Onset Date Last Indicated Resolved Time COVID-19 03/05/2022 03/05/2022 03/15/2022 7:18 PM EDT Assessment Noted Time PHQ-9 Depression Total Score: 2 11/07/19 19 2:06 PM EDT documented as of this encounter Care Teams Chief Projectionist Relationship Specialty Start Date End Date Caitlyn Bowie MD [address] [address] PCP - General Internal Medicine 05/06/21 documented as of this encounter
--- OUTSIDE RECORDS SUMMARY | 2024-10-23 17:55 | XMS_ITS | Encounter Summary ---
Author Organization [facility] and [facility] Address [address] [place] [address] Care Team Providers Care Bottle Assembler Name Role Phone Caitlyn Bowie MD Primary Care Provider +1- [phone] Encounter Details Date Type Department Care Team (Late Contact Info) Description 05/17/2021 Scanned Document [facility] at [address] [address] External, Provider Social History Tobacco Use Types [...] EDT Office Visit Hematology Program at [address] - NP7-301 [place], [place] [address] Ronald Mills MD [address] [address] documented as of this encounter [...] documented as of this encounter Care Teams Bottle Assembler Relationship Specialty Start Date End Date Caitlyn Bowie MD [facility] [address] [address] PCP - General Internal Medicine 05/06/21 documented as of this encounter
--- OUTSIDE RECORDS SUMMARY | 2024-10-23 17:55 | XMS_ITS | Encounter Summary ---
Author Organization [facility] and [facility] Address [address] [place] [address] Care Team Providers Care Operations Supervisor 2Nd Shift Name Role Phone Caitlyn Bowie MD Primary Care Provider +1- [phone] Encounter Details Date Type Department Care Team (Late st Contact Info) Description 05/27/2021 Telephone [facility] at [address] [address] Ronald Mills MD [address] [place] [phone] Social History Tobacco Use Types Packs/Day [...] EDT Office Visit [facility] at [address] - NP[address]301 [facility] [place] [address] Ronald Mills MD 240 [facility] A1 [place] [address] documented as of this encounter Visit Diagnoses Not on filedocumented in this encounter Additional Health Concerns Infection Onset Date Last Indicated Resolved Time COVID-19 03/05/2022 03/05/2022 03/15/2022 7:18 PM EDT Assessment Noted Time PHQ-9 Depression Total Score: 2 11/07/19 19 2:06 PM EDT documented as of this encounter Care Teams Operations Supervisor 2Nd Shift Relationship Specialty Start Date End Date Caitlyn Bowie MD [address] [address] PCP - General Internal Medicine 05/06/21 documented as of this encounter
--- OUTSIDE RECORDS SUMMARY | 2024-10-23 17:55 | XMS_ITS | Encounter Summary ---
Author Organization [facility] and [facility] Address [address] [place] [address] Care Team Providers Care Wrong Address Clerk Name Role Phone Caitlyn Bowie MD Primary Care Provider +1- [phone] Encounter Details Date Type Department Care Team (Late st Contact Info) Description 09/02/2021 Scanned Document INTERFACE DEFAULT [address] [place] [address] System, Provider Not In Social History Tobacco [...] Office Visit [facility] at [address] - [address] [place] [address] Ronald Mills MD [address] [place] [phone] documented as of this encounter Procedures [...] documented as of this encounter Care Teams Wrong Address Clerk Relationship Specialty Start Date End Date Caitlyn Bowie MD [address] [address] PCP - General Internal Medicine 05/06/21 documented as of this encounter
--- OUTSIDE RECORDS SUMMARY | 2024-10-23 17:55 | XMS_ITS | Encounter Summary ---
Author Organization [facility] Address [address] [place] [address] Phone Care Team Providers Care Senior Contract Specialist Name Role Phone Caitlyn Bowie MD Primary Care Provider +1- [phone] Encounter Details Date Type Department Care Team (Late st Contact Info) Description 10/10/2024 Documentation Only [facility] [address] [place] [address] [place], [place] [address] [place] [address] Social History Tobacco Use Types [...] Visit [facility] [address] [place] [address] Rubén Ashraf MD [address] [place] [address] [place] [address] documented as of this encounter Visit Diagnoses Not on filedocumented in this encounter Care Teams Senior Contract Specialist Relationship Specialty Start Date End Date Caitlyn Bowie MD [address]31 [place], [place] PCP - General Internal Medicine 09/24/24 documented as of this encounter
--- OUTSIDE RECORDS SUMMARY | 2024-10-23 17:55 | XMS_ITS | Encounter Summary ---
Author Organization [facility] and [facility] Address [address] [place] [address] Care Team Providers Care Paper Control Clerk Name Role Phone Caitlyn Bowie MD Primary Care Provider +1- [phone] Encounter Details Date Type Department Care Team (Late st Contact Info) Description 05/05/2021 Scanned Document INTERFACE DEFAULT [address] [place] [address] System, Provider Not In Social History Tobacco [...] Office Visit [facility] at [address] - [address] [place] [address] Ronald Mills MD [address] [place] [phone] documented as of this encounter Visit Diagnoses Not on filedocumented in this encounter Additional Health Concerns Infection Onset Date Last Indicated Resolved Time COVID-19 03/05/2022 03/05/2022 03/15/2022 7:18 PM EDT Assessment Noted Time PHQ-9 Depression Total Score: 2 11/07/19 19 2:06 PM EDT documented as of this encounter Care Teams Paper Control Clerk Relationship Specialty Start Date End Date Caitlyn Bowie MD [address] [address] PCP - General Internal Medicine 05/06/21 documented as of this encounter
--- OUTSIDE RECORDS SUMMARY | 2024-10-23 17:55 | XMS_ITS | Encounter Summary ---
Author Organization [facility] and [facility] Address [address] [place] [address] Care Team Providers Care Mechanical Facilities Technician Name Role Phone Caitlyn Bowie MD Primary Care Provider +1- [phone] Encounter Details Date Type Department Care Team (Late st Contact Info) Description 10/08/2021 Scanned Document INTERFACE DEFAULT [address] [place] [address] System, Provider Not In Social History Tobacco [...] Office Visit [facility] at [address] - [address] [place] [address] Ronald Mills MD [address] [place] [phone] documented as of this encounter Procedures [...] as of this encounter Care Teams Mechanical Facilities Technician Relationship Specialty Start Date End Date Caitlyn Bowie MD [address] [address] PCP - General Internal Medicine 05/06/21 documented as of this encounter
--- OUTSIDE RECORDS SUMMARY | 2024-10-23 17:55 | XMS_ITS | Encounter Summary ---
Author Organization [facility] and [facility] Address [address] [place] [address] Care Team Providers Care Tv News Director Name Role Phone Caitlyn Bowie MD Primary Care Provider +1- [phone] Encounter Details Date Type Department Care Team (Late Contact Info) Description 07/30/2018 Scanned Document [facility] Health Information Management [address] [place] [address] External, Provider Social History Tobacco Use [...] Office Visit [facility] at [address] - [address] [place] [address] Ronald Mills MD [address] [place] [phone] documented as of this encounter Procedures [...] documented as of this encounter Care Teams Tv News Director Relationship Specialty Start Date End Date Caitlyn Bowie MD 3400 [facility] 1 [place] [address] PCP - General Internal Medicine 05/06/21 Henry Kelly MD Pulmonary Department [address] [place] [address], [address] [place] [address] Physician Pulmonary Disease 09/06/17 06/22/20 documented as of this encounter
--- OUTSIDE RECORDS SUMMARY | 2024-10-23 17:55 | XMS_ITS | Encounter Summary ---
Author Organization [facility] Address [address] [place] [address] Care Team Providers Care White Mixing Operator Name Role Phone Caitlyn Bowie MD Primary Care Provider +1- [phone] Encounter Details Date Type Department Care Team (Late st Contact Info) Description 09/23/2021 Scanned Document INTERFACE DEFAULT [address] [place] [address] System, Provider Not In Social History Tobacco [...] EDT Office Visit [facility] at [address] - [address] [place] [address] Ronald Mills MD [address] [place] [phone] documented as of this encounter Procedures [...] End Date Caitlyn Bowie MD [address] [address] PCP - General Internal Medicine 05/06/21 documented as of this encounter
--- OUTSIDE RECORDS SUMMARY | 2024-10-23 17:55 | XMS_ITS | Encounter Summary ---
Author Organization [facility] and [facility] Address [address] [place] [address] Care Team Providers Care Press Leader Name Role Phone Caitlyn Bowie MD Primary Care Provider +1- [phone] Encounter Details Date Type Department Care Team (Late st Contact Info) Description 04/26/2021 Scanned Document INTERFACE DEFAULT [address] [place] [address] System, Provider Not In Social History Tobacco [...] Office Visit [facility] at [address] - [address] [place] [address] Ronald Mills MD [address] [place] [phone] documented as of this encounter Procedures [...] as of this encounter Care Teams Press Leader Relationship Specialty Start Date End Date Caitlyn Bowie MD [address] [address] PCP - General Internal Medicine 05/06/21 documented as of this encounter
--- OUTSIDE RECORDS SUMMARY | 2024-10-23 17:55 | XMS_ITS | Encounter Summary ---
Author Organization [facility] and [facility] Address [address] [place] [address] Care Team Providers Care Associate Financial Representative Name Role Phone Caitlyn Bowie MD Primary Care Provider +1- [phone] Encounter Details Date Type Department Care Team (Late st Contact Info) Description 04/27/2021 Scanned Document INTERFACE DEFAULT [address] [place] [address] System, Provider Not In Social History Tobacco [...] Office Visit [facility] at [address] - [address] [place] [address] Ronald Mills MD [address] [place] [phone] documented as of this encounter Procedures [...] as of this encounter Care Teams Associate Financial Representative Relationship Specialty Start Date End Date Caitlyn Bowie MD [address] [address] PCP - General Internal Medicine 05/06/21 documented as of this encounter
--- OUTSIDE RECORDS SUMMARY | 2024-10-23 17:55 | XMS_ITS | Encounter Summary ---
Author Organization [facility] Address [address] [place] [address] Care Team Providers Care Creel Cleaner Name Role Phone Caitlyn Bowie MD Primary Care Provider +1- [phone] Encounter Details Date Type Department Care Team (Late st Contact Info) Description 06/28/2022 Scanned Document INTERFACE DEFAULT [address] [place] [address] System, Provider Not In Social History Tobacco [...] Office Visit [facility] at [address] - [address] [place] [address] Ronald Mills MD [address] [place] [phone] documented as of this encounter Procedures [...] documented as of this encounter Care Teams Creel Cleaner Relationship Specialty Start Date End Date Caitlyn Bowie MD [address] [address] PCP - General Internal Medicine 05/06/21 documented as of this encounter
--- OUTSIDE RECORDS SUMMARY | 2024-10-23 17:55 | XMS_ITS | Encounter Summary ---
Author Organization [facility] and [facility] Address [address] [place] [address] Care Team Providers Care Photogrammetric Engineer Name Role Phone Caitlyn Bowie MD Primary Care Provider +1- [phone] Encounter Details Date Type Department Care Team (Late st Contact Info) Description 08/07/2018 Scanned Document [facility] Health Information Management [address] [place] [address] External, Provider Social History Tobacco Use Types [...] Office Visit [facility] at [address] - [address] [place] [address] Ronald Mills MD [address] [place] [phone] documented as of this encounter Visit Diagnoses Not on filedocumented in this encounter Additional Health Concerns Infection Onset Date Last Indicated Resolved Time COVID-19 03/05/2022 03/05/2022 03/15/2022 7:18 PM EDT documented as of this encounter Care Teams Photogrammetric Engineer Relationship Specialty Start Date End Date Caitlyn Bowie MD 3400 [facility] 1 [place] [address] PCP - General Internal Medicine 05/06/21 Henry Kelly MD Pulmonary Department [address] [place] [address], [address] [place] [address] Physician Pulmonary Disease 09/06/17 06/22/20 documented as of this encounter
--- OUTSIDE RECORDS SUMMARY | 2024-10-23 17:55 | XMS_ITS | Encounter Summary ---
Author Organization [facility] Address [address] [place] [address] Care Team Providers Care Charge Loader Name Role Phone Caitlyn Bowie MD Primary Care Provider +1- [phone] Encounter Details Date Type Department Care Team (Late Contact Info) Description 07/28/2018 Scanned Document [facility] Health Information Management [address] [place] [address] External, Provider Social History Tobacco Use Types [...] Office Visit [facility] at [address] - [address] [place] [address] Ronald Mills MD [address] [place] [phone] documented as of this encounter Procedures [...] as of this encounter Care Teams Charge Loader Relationship Specialty Start Date End Date Caitlyn Bowie MD 3400 [facility] 1 [place] [address] PCP - General Internal Medicine 05/06/21 Henry Kelly MD Pulmonary Department [address] [place] [address], [address] [place] [address] Physician Pulmonary Disease 09/06/17 06/22/20 documented as of this encounter
--- OUTSIDE RECORDS SUMMARY | 2024-10-23 17:55 | XMS_ITS | Encounter Summary ---
Author Organization [facility] Address [address] [place] [address] Care Team Providers Care Workers Compensation Claims Adjuster Name Role Phone Caitlyn Bowie MD Primary Care Provider +1- [phone] Encounter Details Date Type Department Care Team (Late st Contact Info) Description 11/18/2021 Scanned Document INTERFACE DEFAULT [address] [place] [address] System, Provider Not In Social History Tobacco [...] Office Visit [facility] at [address] - [address] [place] [address] Ronald Mills MD [address] [place] [phone] documented as of this encounter Visit Diagnoses Not on filedocumented in this encounter Additional Health Concerns Infection Onset Date Last Indicated Resolved Time COVID-19 03/05/2022 03/05/2022 03/15/2022 7:18 PM EDT Assessment Noted Time PHQ-9 Depression Total Score: 2 11/07/19 19 2:06 PM EDT documented as of this encounter Care Teams Workers Compensation Claims Adjuster Relationship Specialty Start Date End Date Caitlyn Bowie MD [address] [address] PCP - General Internal Medicine 05/06/21 documented as of this encounter
--- OUTSIDE RECORDS SUMMARY | 2024-10-23 17:55 | XMS_ITS | Encounter Summary ---
Author Organization [facility] Address [address] [place] [address] Care Team Providers Care Foreman Shipping Department Name Role Phone Caitlyn Bowie MD Primary Care Provider +1- [phone] Encounter Details Date Type Department Care Team (Late st Contact Info) Description 04/24/2021 Scanned Document INTERFACE DEFAULT [address] [place] [address] System, Provider Not In Social History Tobacco [...] Office Visit [facility] at [address] - [address] [place] [address] Ronald Mills MD [address] [place] [phone] documented as of this encounter Procedures [...] documented as of this encounter Care Teams Foreman Shipping Department Relationship Specialty Start Date End Date Caitlyn Bowie MD [address] [address] PCP - General Internal Medicine 05/06/21 documented as of this encounter
--- OUTSIDE RECORDS SUMMARY | 2024-10-23 17:55 | XMS_ITS | Encounter Summary ---
Author Organization [facility] Address [address] [place] [address] Care Team Providers Care Structurer Name Role Phone Caitlyn Bowie MD Primary Care Provider +1- [phone] Reason for Visit * Reason Comments Advice Only Encounter Details Date Type Department Care Team ([facility] st Contact Info) Description 06/01/2021 Telephone [facility] at [address] [phone] Ronald Mills MD [address] [place] [phone] Advice Only Social History Tobacco Use [...] added that she's called before and sent [employer] messages but hasn't received a reply,[phone]. documented in this encounter Plan of Treatment Upcoming Encounters Date Type Department Care Team (Late st Contact Info) Description 10/31/2024 1:00 PM EDT Office Visit [facility] at [address] - [address] [place] [address] Ronald Mills MD 240 [facility] A[address] [place] [address] documented as of this encounter Visit Diagnoses Not on filedocumented in this encounter Additional Health Concerns Infection Onset Date Last Indicated Resolved Time COVID-19 03/05/2022 03/05/2022 03/15/2022 7:18 PM EDT Assessment Noted Time PHQ-9 Depression Total Score: 2 11/07/19 19 2:06 PM EDT documented as of this encounter Care Teams Structurer Relationship Specialty Start Date End Date Caitlyn Bowie MD [address] [address] PCP - General Internal Medicine 05/06/21 documented as of this encounter
--- OUTSIDE RECORDS SUMMARY | 2024-10-23 17:55 | XMS_ITS | Encounter Summary ---
Author Organization [facility] Address [address] [place] [address] Care Team Providers Care Quill Skinner Name Role Phone Pcp, No Primary Care Provider Brennan Mario MD Primary Care Provider [phone] Caitlyn Bowie MD Primary Care Provider +1- [phone] Encounter Details Date Type Department Care Team (Late st Contact Info) Description 01/04/2022 Scanned Document [facility] Neurology Ophthalmology [address] [address] Yary Whitten DO [address] [place] [address] Social History Tobacco Use Types Packs/Day Years Used Date Smoking Tobacco: Never Alcohol Use Standard Drinks/Week Comments Never 0 (1 standard drink = 0.6 oz pur e alcohol) Comments Unknown Sex and Gender Information Value Date Recorded Sex Assigned at Not on file Legal Sex Unknown 03/26/2018 9:49 PM EDT Gender Identity Not on file [...] on filedocumented in this encounter Care Teams Quill Skinner Relationship Specialty Start Date End Date Pcp, No PCP - General General Medicine 10/04/21 07/18/22 Brennan Burnett MD [address] [place] [address] PCP - General 07/19/22 03/19/23 Caitlyn Bowie MD 3400 [place] [address] PCP - General Internal Medicine 03/20/23 documented as of this encounter
--- OUTSIDE RECORDS SUMMARY | 2024-10-23 17:55 | XMS_ITS | Encounter Summary ---
Author Organization [facility] Address [address] [place] [address] Care Team Providers Care Assistant Golf Coach Name Role Phone Caitlyn Bowie MD Primary Care Provider +1- [phone] Encounter Details Date Type Department Care Team (Late st Contact Info) Description 04/28/2021 Scanned Document INTERFACE DEFAULT [address] [place] [address] System, Provider Not In Social History Tobacco [...] Office Visit [facility] at [address] - [address] [place] [address] Ronald Mills MD [address] [place] [phone] documented as of this encounter Procedures Procedure Name Priority Date/Time Associated Diagnosis Comments CARDIAC CATHETERIZATION 10/20/20 21 12:00 AM EDT documented in this encounter [...] as of this encounter Care Teams Assistant Golf Coach Relationship Specialty Start Date End Date Caitlyn Bowie MD [address] [address] PCP - General Internal Medicine 05/06/21 documented as of this encounter
--- OUTSIDE RECORDS SUMMARY | 2024-10-23 17:55 | XMS_ITS | Encounter Summary ---
Author Organization [facility] Address [address] [place] [address] Care Team Providers Care Driveway Attendant Name Role Phone Caitlyn Bowie MD Primary Care Provider +1- [phone] Reason for Visit * Reason Comments Triage Encounter Details Date Type Department Care Team (Late st Contact Info) Description 10/18/2021 Telephone [facility] at [address] - [address] [phone] Ronald Mills MD [address] [place] [phone] Triage Social History Tobacco Use Types [...] Office Visit [facility] at [address] - [address] [place] [address] Ronald Mills MD [address] [phone] documented as of this encounter Visit Diagnoses Not on filedocumented in this encounter Additional Health Concerns Infection Onset Date Last Indicated Resolved Time COVID-19 03/05/2022 03/05/2022 03/15/2022 7:18 PM EDT Assessment Noted Time PHQ-9 Depression Total Score: 2 11/07/19 19 2:06 PM EDT documented as of this encounter Care Teams Driveway Attendant Relationship Specialty Start Date End Date Caitlyn Bowie MD [address] [address] PCP - General Internal Medicine 05/06/21 documented as of this encounter
--- OUTSIDE RECORDS SUMMARY | 2024-10-23 17:55 | XMS_ITS | Encounter Summary ---
Author Organization [facility] Address [address] [place] [address] Care Team Providers Care Services Tech Name Role Phone Caitlyn Bowie MD Primary Care Provider +1- [phone] Encounter Details Date Type Department Care Team (Late st Contact Info) Description 06/07/2021 Scanned Document [facility]-Oncology Program at [address] [address] Norma Renee MD [address] [place] [phone] Social History Tobacco Use Types Packs/Day [...] EDT Office Visit Hematology Program at [address] - [address] [place] [address] Ronald Mills MD [address] [place] [phone] documented as of this encounter Visit Diagnoses Not on filedocumented in this encounter Additional Health Concerns Infection Onset Date Last Indicated Resolved Time COVID-19 03/05/2022 03/05/2022 03/15/2022 7:18 PM EDT Assessment Noted Time PHQ-9 Depression Total Score: 2 11/07/19 19 2:06 PM EDT documented as of this encounter Care Teams Services Tech Relationship Specialty Start Date End Date Caitlyn Bowie MD [address] [phone] PCP - General Internal Medicine 05/06/21 documented as of this encounter
--- OUTSIDE RECORDS SUMMARY | 2024-10-23 17:55 | XMS_ITS | Encounter Summary ---
Author Organization [facility] and [facility] Address [address] [place] [address] Care Team Providers Care Registered Art Therapist Name Role Phone Caitlyn Bowie MD Primary Care Provider +1- [phone] Encounter Details Date Type Department Care Team (Late Contact Info) Description 06/07/2021 Scanned Document [facility] at [address] [address] External, Provider Social History Tobacco Use Types [...] EDT Office Visit Hematology Program at [address] - NP7-[address] [place], [place] [address] Ronald Mills MD [address] [place] [phone] documented as of this encounter Visit Diagnoses Not on filedocumented in this encounter Additional Health Concerns Infection Onset Date Last Indicated Resolved Time COVID-19 03/05/2022 03/05/2022 03/15/2022 7:18 PM EDT Assessment Noted Time PHQ-9 Depression Total Score: 2 11/07/19 19 2:06 PM EDT documented as of this encounter Care Teams Registered Art Therapist Relationship Specialty Start Date End Date Caitlyn Bowie MD [address] [address] PCP - General Internal Medicine 05/06/21 documented as of this encounter
--- OUTSIDE RECORDS SUMMARY | 2024-10-23 17:55 | XMS_ITS | Encounter Summary ---
Author Organization [facility] and [facility] Address [address] [place] [address] Care Team Providers Care Apricot Packer Name Role Phone Caitlyn Bowie MD Primary Care Provider +1- [phone] Encounter Details Date Type Department Care Team (Late st Contact Info) Description 07/28/2022 Scanned Document Onco-Oncology Program at [address] [address] Norma Renee MD [address] [place] [phone] Social History Tobacco Use Types Packs/Day [...] EDT Office Visit Hematology Program at [address] - [address] [place] [address] Ronald Mills MD [address] [place] [address] documented as of this encounter Visit Diagnoses Not on filedocumented in this encounter Additional Health Concerns Assessment Noted Time PHQ-9 Depression Total Score: 2 11/07/19 19 2:06 PM EDT documented as of this encounter Care Teams Apricot Packer Relationship Specialty Start Date End Date Caitlyn Bowie MD [address] [address] PCP - General Internal Medicine 05/06/21 documented as of this encounter
--- OUTSIDE RECORDS SUMMARY | 2024-10-23 17:55 | XMS_ITS | Encounter Summary ---
Author Organization [facility] and [facility] Address [address] [place] [address] Care Team Providers Care Nutrition Helper Name Role Phone Caitlyn Bowie MD Primary Care Provider +1- [phone] Encounter Details Date Type Department Care Team (Late st Contact Info) Description 07/08/2022 Scanned Document Cardiovascular Medicine at [address] [place] [phone] Norma Renee MD [address] [place] [phone] Social History Tobacco Use Types Packs/Day [...] EDT Office Visit Hematology Program at [address] - [address] [phone] Ronald Mills MD [address] [place] [phone] documented as of this encounter Visit Diagnoses Not on filedocumented in this encounter Additional Health Concerns Assessment Noted Time PHQ-9 Depression Total Score: 2 11/07/19 19 2:06 PM EDT documented as of this encounter Care Teams Nutrition Helper Relationship Specialty Start Date End Date Caitlyn Bowie MD [address] [phone] PCP - General Internal Medicine 05/06/21 documented as of this encounter
--- OUTSIDE RECORDS SUMMARY | 2024-10-23 17:55 | XMS_ITS | Encounter Summary ---
Author Organization [facility] and [facility] Address [address] [place] [address] Care Team Providers Care Hadoop Engineer Name Role Phone Caitlyn Bowie MD Primary Care Provider +1- [phone] Encounter Details Date Type Department Care Team (Late st Contact Info) Description 12/23/2022 Scanned Document INTERFACE DEFAULT [address] [place] [address] System, Provider Not In Social History Tobacco [...] EDT [facility] Visit [facility] at [address] - [address] [place] [address] Ronald Mills MD [address] [place] [phone] documented as of this encounter Visit Diagnoses Not on filedocumented in this encounter Additional Health Concerns Assessment Noted Time PHQ-9 Depression Total Score: 2 11/07/19 19 2:06 PM EDT documented as of this encounter Care Teams Hadoop Engineer Relationship Specialty Start Date End Date Caitlyn Bowie MD [address] [address] PCP - General Internal Medicine 05/06/21 documented as of this encounter
--- OUTSIDE RECORDS SUMMARY | 2024-10-23 17:55 | XMS_ITS | Encounter Summary ---
Author Organization [facility] and [facility] Address [address] [place] [address] Care Team Providers Care Electrical Instrument Technician Name Role Phone Caitlyn Bowie MD Primary Care Provider +1- [phone] Encounter Details Date Type Department Care Team (Late st Contact Info) Description 06/24/2022 Scanned Document INTERFACE DEFAULT [address] [place] [address] System, Provider Not In Social History Tobacco [...] Office Visit [facility] at [address] - [address] [place] [address] Ronald Mills MD [address] [place] [phone] documented as of this encounter Procedures [...] as of this encounter Care Teams Electrical Instrument Technician Relationship Specialty Start Date End Date Caitlyn Bowie MD [address] [address] PCP - General Internal Medicine 05/06/21 documented as of this encounter
--- OUTSIDE RECORDS SUMMARY | 2024-10-23 17:55 | XMS_ITS | Encounter Summary ---
Author Organization [facility] and [facility] Address [address] [place] [address] Care Team Providers Care Teaching Young Name Role Phone Caitlyn Bowie MD Primary Care Provider +1- [phone] Encounter Details Date Type Department Care Team (Late st Contact Info) Description 06/27/2022 Scanned Document INTERFACE DEFAULT [address] [place] [address] System, Provider Not In Social History Tobacco [...] Office Visit [facility] at [address] - [address] [place] [address] Ronald Mills MD [address] [place] [phone] documented as of this encounter Procedures [...] documented as of this encounter Care Teams Teaching Young Relationship Specialty Start Date End Date Caitlyn Bowie MD [address] [address] PCP - General Internal Medicine 05/06/21 documented as of this encounter
--- OUTSIDE RECORDS SUMMARY | 2024-10-23 17:55 | XMS_ITS | Encounter Summary ---
Author Organization [facility] and [facility] Address [address] [place] [address] Care Team Providers Care Appian Developer Name Role Phone Caitlyn Bowie MD Primary Care Provider +1- [phone] Encounter Details Date Type Department Care Team (Late st Contact Info) Description 07/07/2021 Scanned Document INTERFACE DEFAULT [address] [place] [address] System, Provider Not In Social History Tobacco [...] Office Visit [facility] at [address] - [address] [place] [address] Ronald Mills MD [address] [place] [phone] documented as of this encounter Visit Diagnoses Not on filedocumented in this encounter Additional Health Concerns Infection Onset Date Last Indicated Resolved Time COVID-19 03/05/2022 03/05/2022 03/15/2022 7:18 PM EDT Assessment Noted Time PHQ-9 Depression Total Score: 2 11/07/19 19 2:06 PM EDT documented as of this encounter Care Teams Appian Developer Relationship Specialty Start Date End Date Caitlyn Bowie MD [address] [phone] PCP - General Internal Medicine 05/06/21 documented as of this encounter
--- OUTSIDE RECORDS SUMMARY | 2024-10-23 17:55 | XMS_ITS | Encounter Summary ---
Author Organization [facility] and [facility] Address [address] [place] [address] Care Team Providers Care Physical Therapist Aide Name Role Phone Caitlyn Bowie MD Primary Care Provider +1- [phone] Encounter Details Date Type Department Care Team (Late st Contact Info) Description 06/08/2021 Scanned Document INTERFACE DEFAULT [address] [place] [address] System, Provider Not In Social History Tobacco [...] Office Visit [facility] at [address] - [address] [place] [address] Ronald Mills MD [address] [place] [phone] documented as of this encounter Procedures [...] as of this encounter Care Teams Physical Therapist Aide Relationship Specialty Start Date End Date Caitlyn Bowie MD [facility] [address] [address] PCP - General Internal Medicine 05/06/21 documented as of this encounter
--- OUTSIDE RECORDS SUMMARY | 2024-10-23 17:55 | XMS_ITS | Encounter Summary ---
Author Organization [facility] Address [address] [place] [address] Care Team Providers Care Sfdc Solution Architect Name Role Phone Caitlyn Bowie MD Primary Care Provider +1- [phone] Encounter Details Date Type Department Care Team (Late st Contact Info) Description 09/10/2021 Scanned Document Cardiovascular Medicine at [address] [place] [phone] Norma Renee MD [address] [place] [phone] Social History Tobacco Use Types Packs/Day [...] EDT Office Visit Hematology Program at [address] - [address] [phone] Ronald Mills MD [address] [place] [phone] documented as of this encounter Visit Diagnoses Not on filedocumented in this encounter Additional Health Concerns Infection Onset Date Last Indicated Resolved Time COVID-19 03/05/2022 03/05/2022 03/15/2022 7:18 PM EDT Assessment Noted Time PHQ-9 Depression Total Score: 2 11/07/19 19 2:06 PM EDT documented as of this encounter Care Teams Sfdc Solution Architect Relationship Specialty Start Date End Date Caitlyn Bowie MD [address] [address] PCP - General Internal Medicine 05/06/21 documented as of this encounter
--- OUTSIDE RECORDS SUMMARY | 2024-10-23 17:55 | XMS_ITS | Encounter Summary ---
Author Organization [facility] Address [address] [place] [address] Care Team Providers Care Boring Machine Operator Double End Name Role Phone Caitlyn Bowie MD Primary Care Provider +1- [phone] Encounter Details Date Type Department Care Team (Late st Contact Info) Description 04/25/2021 Scanned Document INTERFACE DEFAULT [address] [place] [address] System, Provider Not In Social History Tobacco [...] EDT Office Visit [facility] at [address] - [address] [place] [address] Ronald Mills MD [address] [place] [phone] documented as of this encounter Procedures [...] documented as of this encounter Care Teams Boring Machine Operator Double End Relationship Specialty Start Date End Date Caitlyn Bowie MD [address] [address] PCP - General Internal Medicine 05/06/21 documented as of this encounter
--- OUTSIDE RECORDS SUMMARY | 2024-10-23 17:55 | XMS_ITS | Encounter Summary ---
Author Organization [facility] and [facility] Address [address] [place] [address] Care Team Providers Care Dental Cream Maker Name Role Phone Caitlyn Bowie MD Primary Care Provider +1- [phone] Encounter Details Date Type Department Care Team (Late Contact Info) Description 01/31/2023 Abstract [facility] [place] [address] Shilpi Romero, RN Social History Tobacco Use [...] EDT Office Visit [facility] at [address] - [address] [address] Ronald Mills MD [address] [place] [phone] documented as of this encounter Visit Diagnoses Not on filedocumented in this encounter Additional Health Concerns Assessment Noted Time PHQ-9 Depression Total Score: 2 11/07/19 19 2:06 PM EDT documented as of this encounter Care Teams Dental Cream Maker Relationship Specialty Start Date End Date Caitlyn Bowie MD [address] [address] PCP - General Internal Medicine 05/06/21 documented as of this encounter
--- OUTSIDE RECORDS SUMMARY | 2024-10-23 17:55 | XMS_ITS | Encounter Summary ---
Author Organization [facility] and [facility] Address [address] [place] [address] Care Team Providers Care Structural Architect Name Role Phone Caitlyn Bowie MD Primary Care Provider +1- [phone] Encounter Details Date Type Department Care Team (Late st Contact Info) Description 07/22/2021 Scanned Document INTERFACE DEFAULT [address] [place] [address] System, Provider Not In Social History Tobacco [...] Office Visit [facility] at [address] - [address] [place] [address] Ronald Mills MD [address] [place] [phone] documented as of this encounter Procedures [...] documented as of this encounter Care Teams Structural Architect Relationship Specialty Start Date End Date Caitlyn Bowie MD [address] [address] PCP - General Internal Medicine 05/06/21 documented as of this encounter
--- OUTSIDE RECORDS SUMMARY | 2024-10-23 17:55 | XMS_ITS | Clinical Summary ---
Author Organization [facility] Address [address] [place] [address] Care Team Providers Care Hot Baller Name Role Phone Caitlyn Bowie MD Primary Care Provider +1- [phone] Allergies Active Allergy Reactions Criticality Noted Date [...] Breath High 05/09/2008 Bronchospasm or Wheezing Ipratropium [place] Unknown/Patient and Family Unable to Define Medium [...] Family Unable to Define Medium 01/04/2022 Medications fluticasone-angelica meterol (ADVAIR) 100-50 mcg/inh diskus inhaler 6 Active Ascorbic Acid (vitamin C) 1000 MG tablet Take 1 tablet (1,000 mg total) by mouth. Active Probiotic Product (PROBIOTIC BLEND PO) Take 1 capsule by mouth daily. Active B Eunktia-W-Zgsde Acid (STRESS 500 B-COMPLEX PO) Take 1 tablet by mouth. 2 Active Elderberry 500 MG Cap Take by mouth. Activ e EPINEPHrine 0.3 mg/0.3 mL IJ auto-injection Inject as directed See Admin Instructions. Active vitamin B-12 (CYANOCOBALAMIN ) 100 MCG tablet Take by mouth. Activ e ferrous sulfate 220 mg/5 mL solution Take by mouth. Activ e warfarin (COUMADIN) 1 MG tablet 1 tablet Active umeclidinium-vi lanterol (umeclidinium-v ilanterol) 62.5-25 MCG/INH inhaler Incruse Ellipta 62.5 mcg/actuation powder for inhalation Active Cetirizine HCl (ZyrTEC Allergy) 10 MG Cap 6 Active warfarin, COUMADIN, DOSED by PRESCRIBER (eMAR reminder) warfarin Acti ve diazepam (VALIUM) 10 MG tablet 6 Active traZODone (DESYREL) 50 MG tablet 6 Active levothyroxine (SYNTHROID, LEVOTHROID) 100 MCG tablet 6 Active torsemide (DEMADEX) 10 MG tablet 8 Active montelukast (SINGULAIR) 10 MG tablet 6 Active rosuvastatin (CRESTOR) 10 MG tablet Take by mouth. Activ e guaiFENesin (guaiFENesin) 100 mg/5 mL Solution liquid Acti ve polyethyl glycol-propyl glycol (Systane) 0.4-0.3 % Solution Apply 1 drop to eye. 2 Active Cetirizine HCl (ZyrTEC Allergy) 10 MG Cap Zyrtec Active Ergocalciferol (Vitamin D2) 10 MCG (400 UNIT) Tab 6 Active B Complex Vitamins (VITAMIN B COMPLEX 100 IJ) Take by mouth. Active meclizine (ANTIVERT) 6.25 MG tablet 6 Active predniSONE (DELTASONE) 5 MG tablet Take 1 tablet (5 mg total) by mouth. 1 Active oxymetazoline (AFRIN) 0.05 % nasal spray into each nostril. Active guaiFENesin (ROBITUSSIN) 100 mg/5 mL Solution liquid Take by mouth. Active METOPROLOL & DIET MANAGE PROD PO 6 Active Carbonyl Iron (Iron Chews Pediatric) 15 MG Chew Tab Chew 15 mg. 2 Active Family History Medical History Relation Name [...] , 05/15/2021, Additional history exists COVID-19 Vaccine ( season) 2024 09/03/2020, 08/06/2020 Hepatitis B Vaccines Aged Out No long er eligible based on patient's age to complete this topic Insurance MEDICARE PART A & B MEDICARE PART A & B [facility] Care Teams Hot Baller Relationship Specialty Start Date End Date Caitlyn Bowie MD [address] [place] [address] PCP - General Internal Medicine 03/20/23
--- OUTSIDE RECORDS SUMMARY | 2024-10-23 17:55 | XMS_ITS | Encounter Summary ---
Author Organization [facility] Address [address] [place] [address] Care Team Providers Care Group Supervisor Yard Name Role Phone Caitlny Bowie MD Primary Care Provider +1- [phone] Encounter Details Date Type Department Care Team (Late Contact Info) Description 11/18/2021 Scanned Document [facility] Health Information Management [address] [place] [address] External, Provider Social History Tobacco Use Types [...] Office Visit [facility] at [address] - [address] [place] [address] Ronald Mills MD [address] [place] [phone] documented as of this encounter Visit Diagnoses Not on filedocumented in this encounter Additional Health Concerns Infection Onset Date Last Indicated Resolved Time COVID-19 03/05/2022 03/05/2022 03/15/2022 7:18 PM EDT Assessment Noted Time PHQ-9 Depression Total Score: 2 11/07/19 19 2:06 PM EDT documented as of this encounter Care Teams Group Supervisor Yard Relationship Specialty Start Date End Date Caitlyn Bowie MD [address] [phone] PCP - General Internal Medicine 05/06/21 documented as of this encounter
--- OUTSIDE RECORDS SUMMARY | 2024-10-23 17:55 | XMS_ITS | Encounter Summary ---
Author Organization [facility] Address [address] [place] [address] Care Team Providers Care Fraternity Adviser Name Role Phone Caitlyn Bowie MD Primary Care Provider +1- [phone] Encounter Details Date Type Department Care Team (Late st Contact Info) Description 09/24/2021 Scanned Document INTERFACE DEFAULT [address] [place] [address] System, Provider Not In Social History Tobacco [...] Office Visit [facility] at [address] - [address] [place] [address] Ronald Mills MD [address] [place] [phone] documented as of this encounter Procedures [...] documented as of this encounter Care Teams Fraternity Adviser Relationship Specialty Start Date End Date Caitlyn Bowie MD [address] [address] PCP - General Internal Medicine 05/06/21 documented as of this encounter
--- OUTSIDE RECORDS SUMMARY | 2024-10-23 17:55 | XMS_ITS | Encounter Summary ---
Author Organization [facility] and [facility] Address [address] [place] [address] Care Team Providers Care Fiber Technician Name Role Phone Caitlyn Bowie MD Primary Care Provider +1- [phone] Reason for Visit * Reason Comments Advice Only mass Encounter Details Date Type Department Care Team (Late st Contact Info) Description 09/06/2021 Telephone [facility] at [address] [phone] Ronald Mills MD [address] [place] [phone] Advice Only (mass) Social History Tobacco [...] EDT Office Visit Hematology Program at [address] - [address] [place] [address] Ronald Mills MD [address] [facility] [place] [address] documented as of this encounter Visit Diagnoses Not on filedocumented in this encounter Additional Health Concerns Infection Onset Date Last Indicated Resolved Time COVID-19 03/05/2022 03/05/2022 03/15/2022 7:18 PM EDT Assessment Noted Time PHQ-9 Depression Total Score: 2 11/07/19 19 2:06 PM EDT documented as of this encounter Care Teams Fiber Technician Relationship Specialty Start Date End Date Caitlyn Bowie MD [address] [address] PCP - General Internal Medicine 05/06/21 documented as of this encounter
--- OUTSIDE RECORDS SUMMARY | 2024-10-23 17:55 | XMS_ITS | Encounter Summary ---
Author Organization [facility] Address [address] [place] [address] Care Team Providers Care Battery Builder Name Role Phone Caitlyn Bowie MD Primary Care Provider +1- [phone] Encounter Details Date Type Department Care Team (Late Contact Info) Description 10/29/2021 Scanned Document [facility] Health Information Management [address] [place] [phone] External, Provider Social History Tobacco Use Types [...] Office Visit [facility] at [address] - [address] [place] [address] Ronald Mills MD [address] [place] [phone] documented as of this encounter Procedures [...] as of this encounter Care Teams Battery Builder Relationship Specialty Start Date End Date Caitlyn Bowie MD [address] [address] PCP - General Internal Medicine 05/06/21 documented as of this encounter
--- OUTSIDE RECORDS SUMMARY | 2024-10-23 17:55 | XMS_ITS | Encounter Summary ---
Author Organization [facility] and [facility] Address [address] [place] [address] Care Team Providers Care Bag Sealer Name Role Phone Caitlyn Bowie MD Primary Care Provider +1- [phone] Encounter Details Date Type Department Care Team (Late st Contact Info) Description 06/26/2018 Scanned Document [facility] Health Information Management [address] [place] [address] External, Provider Social History Tobacco Use Types [...] Office Visit [facility] at [address] [place] [address] Ronald Mills MD [address] [place] [phone] documented as of this encounter Visit Diagnoses Not on filedocumented in this encounter Additional Health Concerns Infection Onset Date Last Indicated Resolved Time COVID-19 03/05/2022 03/05/2022 03/15/2022 7:18 PM EDT documented as of this encounter Care Teams Bag Sealer Relationship Specialty Start Date End Date Caitlyn Bowie MD 3400 [facility] 1 [place] [address] PCP - General Internal Medicine 05/06/21 Henry Kelly MD Pulmonary Department [address] [place] [address], [address] [place] [address] Physician Pulmonary Disease 09/06/17 06/22/20 documented as of this encounter
--- OUTSIDE RECORDS SUMMARY | 2024-10-23 17:55 | XMS_ITS | Encounter Summary ---
Author Organization [facility] and [facility] Address [address] [place] [address] Care Team Providers Care Garden Tractor Mechanic Name Role Phone Caitlyn Bowie MD Primary Care Provider +1- [phone] Encounter Details Date Type Department Care Team (Late st Contact Info) Description 09/09/2021 Scanned Document INTERFACE DEFAULT [address] [place] [address] System, Provider Not In Social History Tobacco [...] Office Visit [facility] at [address] [place] [address] Ronald Mills MD [address] [place] [phone] documented as of this encounter Visit Diagnoses Not on filedocumented in this encounter Additional Health Concerns Infection Onset Date Last Indicated Resolved Time COVID-19 03/05/2022 03/05/2022 03/15/2022 7:18 PM EDT Assessment Noted Time PHQ-9 Depression Total Score: 2 11/07/19 19 2:06 PM EDT documented as of this encounter Care Teams Garden Tractor Mechanic Relationship Specialty Start Date End Date Caitlyn Bowie MD [address] [address] PCP - General Internal Medicine 05/06/21 documented as of this encounter
--- OUTSIDE RECORDS SUMMARY | 2024-10-23 17:55 | XMS_ITS | Encounter Summary ---
Author Organization [facility] and [facility] Address [address] [place] [address] Care Team Providers Care Photocopying Equipment Mechanic Name Role Phone Caitlyn Bowie MD Primary Care Provider +1- [phone] Encounter Details Date Type Department Care Team (Late st Contact Info) Description 08/23/2022 Abstract Cardiovascular Medicine at [address] [address] Norma Renee MD [address] [place] [phone] Social History Tobacco Use Types Packs/Day [...] EDT Office Visit Hematology Program at [address] [address] Ronald Mills MD [address] [place] [phone] documented as of this encounter Visit Diagnoses Not on filedocumented in this encounter Additional Health Concerns Assessment Noted Time PHQ-9 Depression Total Score: 2 11/07/19 19 2:06 PM EDT documented as of this encounter Care Teams Photocopying Equipment Mechanic Relationship Specialty Start Date End Date Caitlyn Bowie MD [address] [address] PCP - General Internal Medicine 05/06/21 documented as of this encounter
--- OUTSIDE RECORDS SUMMARY | 2024-10-23 17:55 | XMS_ITS | Encounter Summary ---
Author Organization [facility] and [facility] Address [address] [place] [address] Care Team Providers Care Glass Silverer Name Role Phone Caitlyn Bowie MD Primary Care Provider +1- [phone] Encounter Details Date Type Department Care Team (Late st Contact Info) Description 10/24/2022 Scanned Document INTERFACE DEFAULT [address] [place] [address] System, Provider Not In Social History Tobacco [...] Office Visit [facility] at [address] [place] [address] Ronald Mills MD [address] [place] [phone] documented as of this encounter Procedures [...] as of this encounter Care Teams Glass Silverer Relationship Specialty Start Date End Date Caitlyn Bowie MD [address] [address] PCP - General Internal Medicine 05/06/21 documented as of this encounter
--- OUTSIDE RECORDS SUMMARY | 2024-10-23 17:55 | XMS_ITS | Encounter Summary ---
Author Organization [facility] and [facility] Address [address] [place] [address] Care Team Providers Care Director Of Digital Marketing Name Role Phone Caitlyn Bowie MD Primary Care Provider +1- [phone] Encounter Details Date Type Department Care Team (Late st Contact Info) Description 07/06/2021 Scanned Document INTERFACE DEFAULT [address] [place] [address] System, Provider Not In Social History Tobacco [...] Office Visit [facility] at [address] [place] [address] Ronald Mills MD [address] [place] [phone] documented as of this encounter Visit Diagnoses Not on filedocumented in this encounter Additional Health Concerns Infection Onset Date Last Indicated Resolved Time COVID-19 03/05/2022 03/05/2022 03/15/2022 7:18 PM EDT Assessment Noted Time PHQ-9 Depression Total Score: 2 11/07/19 19 2:06 PM EDT documented as of this encounter Care Teams Director Of Digital Marketing Relationship Specialty Start Date End Date Caitlyn Bowie MD [address] [address] PCP - General Internal Medicine 05/06/21 documented as of this encounter
--- OUTSIDE RECORDS SUMMARY | 2024-10-23 17:55 | XMS_ITS | Encounter Summary ---
Author Organization [facility] and [facility] Address [address] [place] [address] Care Team Providers Care Aircraft Avionics Technician Name Role Phone Caitlyn Bowie MD Primary Care Provider +1- [phone] Encounter Details Date Type Department Care Team (Late st Contact Info) Description 09/07/2021 Scanned Document INTERFACE DEFAULT [address] [place] [address] System, Provider Not In Social History Tobacco [...] Office Visit [facility] at [address] [place] [address] Ronald Mills MD [address] [place] [phone] documented as of this encounter Procedures [...] as of this encounter Care Teams Aircraft Avionics Technician Relationship Specialty Start Date End Date Caitlyn Bowie MD [address] [address] PCP - General Internal Medicine 05/06/21 documented as of this encounter
--- OUTSIDE RECORDS SUMMARY | 2024-10-23 17:55 | XMS_ITS | Encounter Summary ---
Author Organization [facility] and [facility] Address [address] [place] [address] Care Team Providers Care Eyeglass Inspector Name Role Phone Caitlyn Bowie MD Primary Care Provider +1- [phone] Encounter Details Date Type Department Care Team (Late st Contact Info) Description 10/15/2018 Scanned Document [facility] Health Information Management [address] [place] [address] External, Provider Social History Tobacco Use Types [...] Office Visit [facility] at [address] [place] [address] Ronald Mills MD [address] [place] [phone] documented as of this encounter Visit Diagnoses Not on filedocumented in this encounter Additional Health Concerns Infection Onset Date Last Indicated Resolved Time COVID-19 03/05/2022 03/05/2022 03/15/2022 7:18 PM EDT documented as of this encounter Care Teams Eyeglass Inspector Relationship Specialty Start Date End Date Caitlyn Bowie MD 3400 [facility] 1 [place] [address] PCP - General Internal Medicine 05/06/21 Henry Kelly MD Pulmonary Department [address] [place] [address], [address] [place] [address] Physician Pulmonary Disease 09/06/17 06/22/20 documented as of this encounter
--- OUTSIDE RECORDS SUMMARY | 2024-10-23 17:55 | XMS_ITS | Encounter Summary ---
Author Organization [facility] and [facility] Address [address] [place] [address] Care Team Providers Care Ships Equipment Engineer Name Role Phone Caitlyn Bowie MD Primary Care Provider +1- [phone] Reason for Visit * Reason Comments FYI Encounter Details Date Type Department Care Team (Late st Contact Info) Description 05/24/2021 Telephone [facility] at [facility] at [address] [place] [address] [address] [place], [place] [phone] Solo Henry MD [address] [place] [phone] FYI Social History Tobacco Use Types [...] Office Visit [facility] at [address] [place] [address] Ronald Mills MD [address] [facility] [address] [place] [address] documented as of this encounter Visit Diagnoses Not on filedocumented in this encounter Additional Health Concerns Infection Onset Date Last Indicated Resolved Time COVID-19 03/05/2022 03/05/2022 03/15/2022 7:18 PM EDT Assessment Noted Time PHQ-9 Depression Total Score: 2 11/07/19 19 2:06 PM EDT documented as of this encounter Care Teams Ships Equipment Engineer Relationship Specialty Start Date End Date Caitlyn Bowie MD [address] [address] PCP - General Internal Medicine 05/06/21 documented as of this encounter
--- OUTSIDE RECORDS SUMMARY | 2024-10-23 17:55 | XMS_ITS | Encounter Summary ---
Author Organization [facility] and [facility] Address [address] [place] [address] Care Team Providers Care Usps Letter Carrier Name Role Phone Caitlyn Bowie MD Primary Care Provider +1- [phone] Encounter Details Date Type Department Care Team (Late st Contact Info) Description 04/29/2021 Scanned Document INTERFACE DEFAULT [address] [place] [address] System, Provider Not In Social History Tobacco [...] Office Visit [facility] at [address] [place] [address] Ronald Mills MD [address] [place] [phone] documented as of this encounter Procedures [...] documented as of this encounter Care Teams Usps Letter Carrier Relationship Specialty Start Date End Date Caitlyn Bowie MD [address] [address] PCP - General Internal Medicine 05/06/21 documented as of this encounter
--- OUTSIDE RECORDS SUMMARY | 2024-10-23 17:55 | XMS_ITS | Encounter Summary ---
Author Organization [facility] and [facility] Address [address] [place] [address] Care Team Providers Care Editor News Name Role Phone Caitlyn Bowie MD Primary Care Provider +1- [phone] Encounter Details Date Type Department Care Team (Late Contact Info) Description 07/26/2018 Scanned Document [facility] Health Information Management [address] [place] [address] External, Provider Social History Tobacco Use Types [...] Office Visit [facility] at [address] [place] [address] Ronald Mills MD [address] [place] [phone] documented as of this encounter Procedures [...] documented as of this encounter Care Teams Editor News Relationship Specialty Start Date End Date Caitlyn Bowie MD 3400 [facility] 1 [place] [address] PCP - General Internal Medicine 05/06/21 Henry Kelly MD Pulmonary Department [address] [facility], [address] [place] [address] Physician Pulmonary Disease 09/06/17 06/22/20 documented as of this encounter
--- OUTSIDE RECORDS SUMMARY | 2024-10-23 17:55 | XMS_ITS ---
Author Organization [facility] Address [address] [facility] [address] [place] [address] Care Team Providers Care Cam Specialist Name Role Phone EVELIN RAMSAY Primary Care Provider Yenny Hou Unavailable [phone] Allergies Allergen (clinical drug ingredient) Drug/Non Drug [...] 1/2 tab prn during the day [facility] 06/10/2014 Active Advair HFA 230-21MCG/ACT 2 Inhalation tw ice daily for -3 06/10/2014 Active EpiPen Active Meclizine HCl 25 MG 1 tablet as needed Orally [facility] 06/10/2014 Active Rosuvastatin Calcium 05/03/2024 Active predniSONE 2.5 MG Oral for 30 Active Singulair 10 MG 1 tablet Orally Once a day Active Metoprolol Succinate ER 50 MG 1 tablet Orally Once a day Active Synthroid 25MCG 1 ORAL daily for - [facility] 06/10/2014 Active Albuterol Sulfate (2.5 MG/3ML)0.083% [...] Encounters Encounter Location Date Provider Diagnosis Total [address] [place] [address] 07/09/2024 Yenny Lovettva Urgency of urination R39.15 [...] Notes * TONIE WATSONOB:1945 (79 yo F)Acc No.[id number]:07/09/2024 PROGRESS NOTES Patient:?SHIRLEY CINDA Appointment Provider:?Yenny doan M.D. :1945???Age:79 Y???Sex:Female D ate:07/09/2024 Address:[address] [place] [address], [facility] Pcp:EVELIN RAMSAY Subjective: * Chief Complaints: * [...] ODORED DISCHARGE.?no?skin complaints.? * Medical History:? 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 No lesions, erythema [...] Elizalde M.D. 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 No le sions, erythema or discharge UTERUS: absent ADNEXA: surgically absent
--- OUTSIDE RECORDS SUMMARY | 2024-10-23 17:55 | XMS_ITS | Encounter Summary ---
Author Organization [facility] and [facility] Address [address] [place] [address] Care Team Providers Care Senior Product Consultant Name Role Phone Caitlyn Bowie MD Primary Care Provider +1- [phone] Encounter Details Date Type Department Care Team (Late st Contact Info) Description 06/07/2021 Scanned Document [facility]On[facility] Program at [address] [address] Norma Renee MD [address] [place] [phone] Social History Tobacco Use Types Packs/Day [...] EDT Office Visit Hematology Program at [address] [place] [address] Ronald Mills MD [address] [place] [phone] documented as of this encounter Visit Diagnoses Not on filedocumented in this encounter Additional Health Concerns Infection Onset Date Last Indicated Resolved Time COVID-19 03/05/2022 03/05/2022 03/15/2022 7:18 PM EDT Assessment Noted Time PHQ-9 Depression Total Score: 2 11/07/19 19 2:06 PM EDT documented as of this encounter Care Teams Senior Product Consultant Relationship Specialty Start Date End Date Caitlyn Bowie MD [address] [address] PCP - General Internal Medicine 05/06/21 documented as of this encounter
--- OUTSIDE RECORDS SUMMARY | 2024-10-23 17:56 | XMS_ITS | Encounter Summary ---
Author Organization [facility] and [facility] Address [address] [place] [address] Care Team Providers Care Whiskey Regauger Name Role Phone Caitlyn Bowie MD Primary Care Provider +1- [phone] Encounter Details Date Type Department Care Team (Late st Contact Info) Description 09/09/2015 Scanned Document [facility] Health Information Management [address] [place] [address] External, Provider Social History Tobacco Use Types [...] Office Visit [facility] at [address] [place] [address] Ronald Mills MD [address] [place] [phone] documented as of this encounter Procedures Procedure Name Priority Date/Time Associated Diagnosis Comments LAB SCAN Routine 09/09/2015 documented in this encounter Results * Lab Scan (09/09/2015) Blood specimen (specimen) us Provider External LAB BLOOD ORDERABLES Final Res ult Performing Organization Address City/State/[facility] Co de Phone Number [facility] [place], [place], [facility] documented in this encounter Visit Diagnoses Not on filedocumented in this encounter Additional Health Concerns Infection Onset Date Last Indicated Resolved Time COVID-19 03/05/2022 03/05/2022 03/15/2022 7:18 PM EDT documented as of this encounter Care Teams Whiskey Regauger Relationship Specialty Start Date End Date Caitlyn Bowie MD 3400 [facility] 1 [place] [address] PCP - General Internal Medicine 05/06/21 Henry Kelly MD Pulmonary Department [address] [facility], [address] [place] [address] Physician Pulmonary Disease 09/06/17 06/22/20 documented as of this encounter
--- OUTSIDE RECORDS SUMMARY | 2024-10-23 17:56 | XMS_ITS | Encounter Summary ---
Author Organization [facility] and [facility] Address [address] [place] [address] Care Team Providers Care Stockroom Supervisor Name Role Phone Caitlyn Bowie MD Primary Care Provider +1- [phone] Encounter Details Date Type Department Care Team (Late st Contact Info) Description 09/09/2015 Scanned Document [facility] Health Information Management [address] [place] [address] External, Provider Social History Tobacco Use Types [...] Office Visit [facility] at [address] [place] [address] Ronald Mills MD [address] [place] [phone] documented as of this encounter Procedures Procedure Name Priority Date/Time Associated Diagnosis Comments LAB SCAN Routine 09/09/2015 documented in this encounter Results * Lab Scan (09/09/2015) Blood specimen (specimen) us Provider External LAB BLOOD ORDERABLES Final Res ult [facility] documented in this encounter Visit Diagnoses Not on filedocumented in this encounter Additional Health Concerns Infection Onset Date Last Indicated Resolved Time COVID-19 03/05/2022 03/05/2022 03/15/2022 7:18 PM EDT documented as of this encounter Care Teams Stockroom Supervisor Relationship Specialty Start Date End Date Caitlyn Bowie MD 3400 [facility] 1 [place] [address] PCP - General Internal Medicine 05/06/21 Henry Kelly MD Pulmonary Department [address] [facility], [address] [place] [address] Physician Pulmonary Disease 09/06/17 06/22/20 documented as of this encounter
--- OUTSIDE RECORDS SUMMARY | 2024-10-23 17:56 | XMS_ITS | Encounter Summary ---
Author Organization [facility] and [facility] Address [address] [place] [address] Care Team Providers Care Headstart Teacher Name Role Phone Caitlyn Bowie MD Primary Care Provider +1- [phone] Encounter Details Date Type Department Care Team (Late st Contact Info) Description 06/20/2022 Scanned Document INTERFACE DEFAULT [address] [place] [phone] System, Provider Not In Social History Tobacco [...] Office Visit [facility] at [address] [place] [address] Ronald Mills MD [address] [place] [phone] documented as of this encounter Procedures [...] documented as of this encounter Care Teams Headstart Teacher Relationship Specialty Start Date End Date Caitlyn Bowie MD [address] [address] PCP - General Internal Medicine 05/06/21 documented as of this encounter
--- OUTSIDE RECORDS SUMMARY | 2024-10-23 17:56 | XMS_ITS | Encounter Summary ---
Author Organization [facility] and [facility] Address [address] [place] [address] Care Team Providers Care Machine Stuffer Name Role Phone Caitlyn Bowie MD Primary Care Provider +1- [phone] Reason for Visit * Reason Comments Triage extream dry skin Encounter Details Date Type Department Care Team ([facility] st Contact Info) Description 05/12/2023 Telephone Medical Dermatology at [address] [address] Augustine Vargas MD [address] [place] [phone] Triage (extream dry skin) Social History [...] to her by Dr. Vargas at the [facility]. Requested that she send pictures which will [...] know if there's something the can prescribe. [phone] documented in this encounter Plan of Treatment Upcoming Encounters Date Type Department Care Team (Late st Contact Info) Description 10/31/2024 1:00 PM EDT Office Visit [facility] at [address] [place] [address] Ronald Mills MD 240 [facility] [address]1 [place] [address] documented as of this encounter Visit Diagnoses Not on filedocumented in this encounter Additional Health Concerns Assessment Noted Time PHQ-9 Depression Total Score: 2 11/07/19 19 2:06 PM EDT documented as of this encounter Care Teams Machine Stuffer Relationship Specialty Start Date End Date Ciatlyn Bowie MD [address] [address] PCP - General Internal Medicine 05/06/21 documented as of this encounter
--- OUTSIDE RECORDS SUMMARY | 2024-10-23 17:56 | XMS_ITS | Encounter Summary ---
Author Organization [facility] and [facility] Address [address] [place] [address] Care Team Providers Care Secondary School Registrar Name Role Phone Caitlyn Bowie MD Primary Care Provider +1- [phone] Encounter Details Date Type Department Care Team (Late st Contact Info) Description 04/19/2022 Scanned Document INTERFACE DEFAULT [address] [place] [address] System, Provider Not In Social History Tobacco [...] Office Visit [facility] at [address] [place] [address] Ronald Mills MD [address] [place] [phone] documented as of this encounter Procedures [...] as of this encounter Care Teams Secondary School Registrar Relationship Specialty Start Date End Date Caitlyn Bowie MD [address] [address] PCP - General Internal Medicine 05/06/21 documented as of this encounter
--- OUTSIDE RECORDS SUMMARY | 2024-10-23 17:56 | XMS_ITS | Encounter Summary ---
Author Organization [facility] Address [address] [place] [address] Care Team Providers Care Catastrophe Claims Supervisor Name Role Phone Pcp, No Primary Care Provider Brennan Mario MD Primary Care Provider [phone] Caitlyn Bowie MD Primary Care Provider +1- [phone] Encounter Details Date Type Department Care Team (Late st Contact Info) Description 01/04/2022 Scanned Document [facility] Neurology Ophthalmology [address] [address] Yary Whitten DO [address] [place] [address] Social History Tobacco Use Types Packs/Day [...] on filedocumented in this encounter Care Teams Catastrophe Claims Supervisor Relationship Specialty Start Date End Date Pcp, No PCP - General General Medicine 10/04/21 07/18/22 Brennan Burnett MD [address] [place] [address] PCP - General 07/19/22 03/19/23 Caitlyn Bowie MD 3400 [place] [address] PCP - General Internal Medicine 03/20/23 documented as of this encounter
--- OUTSIDE RECORDS SUMMARY | 2024-10-23 17:56 | XMS_ITS | Encounter Summary ---
Author Organization [facility] and [facility] Address [address] [place] [phone] Care Team Providers Care Camp Dishwasher Name Role Phone Caitlyn Bowie MD Primary Care Provider +1- [phone] Encounter Details Date Type Department Care Team (Late st Contact Info) Description 08/28/2015 Scanned Document [facility] Health Information Management [address] [place] [phone] External, Provider Social History Tobacco Use Types [...] Office Visit [facility] [address] [place] [address] Ronald Mills MD [address] [place] [phone] documented as of this encounter Visit Diagnoses Not on filedocumented in this encounter Additional Health Concerns Infection Onset Date Last Indicated Resolved Time COVID-19 03/05/2022 03/05/2022 03/15/2022 7:18 PM EDT documented as of this encounter Care Teams Camp Dishwasher Relationship Specialty Start Date End Date Caitlyn Bowie MD [address] [facility] 1 [place] [address] PCP - General Internal Medicine 05/06/21 Henry Kelly MD Pulmonary Department [address] [facility], [address] [place] [address] Physician Pulmonary Disease 09/06/17 06/22/20 documented as of this encounter
--- OUTSIDE RECORDS SUMMARY | 2024-10-23 17:56 | XMS_ITS | Encounter Summary ---
Author Organization [facility] and [facility] Address [address] [place] [phone] Care Team Providers Care Pharmacy Resource Tech Name Role Phone Caitlyn Bowie MD Primary Care Provider +1- [phone] Encounter Details Date Type Department Care Team (Late st Contact Info) Description 12/29/2021 Telephone [facility] at [address] - [address] [address] Ronald Mills MD [address] [place] [phone] Social History Tobacco Use Types Packs/Day [...] not sure where the blood's coming from. [phone] documented in this encounter Plan of Treatment Upcoming Encounters Date Type Department Care Team (Late st Contact Info) Description 10/31/2024 1:00 PM EDT Office Visit [facility] [address] [place] [address] Ronald Mills MD [address] [facility] [address] [place] [address] documented as of this encounter Visit Diagnoses Not on filedocumented in this encounter Additional Health Concerns Infection Onset Date Last Indicated Resolved Time COVID-19 03/05/2022 03/05/2022 03/15/2022 7:18 PM EDT Assessment Noted Time PHQ-9 Depression Total Score: 2 11/07/19 19 2:06 PM EDT documented as of this encounter Care Teams Pharmacy Resource Tech Relationship Specialty Start Date End Date Caitlyn Bowie MD [address] [phone] PCP - General Internal Medicine 05/06/21 documented as of this encounter
--- OUTSIDE RECORDS SUMMARY | 2024-10-23 17:56 | XMS_ITS | Encounter Summary ---
Author Organization [facility] and [facility] Address [address] [place] [phone] Care Team Providers Care Appeals Manager Name Role Phone Caitlyn Bowie MD Primary Care Provider +1- [phone] Encounter Details Date Type Department Care Team (Late st Contact Info) Description 05/02/2022 Scanned Document INTERFACE DEFAULT [address] [place] [phone] System, Provider Not In Social History Tobacco [...] EDT Office Visit [facility] at [address] - [address] [place] [address] Ronald Mills MD [address] [place] [phone] documented as of this encounter Procedures [...] documented as of this encounter Care Teams Appeals Manager Relationship Specialty Start Date End Date Caitlyn Bowie MD [address] [phone] PCP - General Internal Medicine 05/06/21 documented as of this encounter
--- OUTSIDE RECORDS SUMMARY | 2024-10-23 17:56 | XMS_ITS | Encounter Summary ---
Author Organization [facility] and [facility] Address [address] [place] [phone] Care Team Providers Care Blind Hooker Name Role Phone Caitlyn Bowie MD Primary Care Provider +1- [phone] Encounter Details Date Type Department Care Team (Late st Contact Info) Description 10/23/2018 Scanned Document [facility] Health Information Management [address] [place] [phone] External, Provider Social History Tobacco Use Types [...] Office Visit [facility] at [address] [place] [address] Ronald Mills MD [address] [place] [phone] documented as of this encounter Visit Diagnoses Not on filedocumented in this encounter Additional Health Concerns Infection Onset Date Last Indicated Resolved Time COVID-19 03/05/2022 03/05/2022 03/15/2022 7:18 PM EDT documented as of this encounter Care Teams Blind Hooker Relationship Specialty Start Date End Date Caitlyn Bowie MD [address] [facility] 1 [place] [address] PCP - General Internal Medicine 05/06/21 Henry Kelly MD Pulmonary Department [address] [place] [address], [address] [place] [address] Physician Pulmonary Disease 09/06/17 06/22/20 documented as of this encounter
--- OUTSIDE RECORDS SUMMARY | 2024-10-23 17:56 | XMS_ITS | Encounter Summary ---
Author Organization [facility], Address [address] [place] [address], [address] [place] [address] Phone Care Team Providers Care Superintendent Maintenance Name Role Phone Caitlyn Bowie MD Primary Care Provider +1- [phone] Reason for Visit * Reason Comments Sleep Apnea Encounter Details Date Type Department Care Team (Late st Contact Info) Description 10/18/2024 10:30 AM EDT Office Visit [facility] [address] [place] [address] [address] [place] [address] Alfredo Michaud Jr., EMELIA [address] [place] [address] [place] [address] KANDY (obstructive sleep apnea) (Primary Dx); Fatigue, unspecified type; Excessive daytime sleepiness; MCI (mild cognitive impairment) with memory loss Social History Tobacco Use Types Packs/Day Years [...] - Inhaled Oxygen Concentration - - Weight 56.7 kg (125 lb) 10/18/2024 11:05 AM EDT Height 157.5 cm (5' 2 ) 10/18/2024 11:05 AM EDT Body Mass Index 22.86 10/18/2024 11:05 AM EDT documented in this encounter Progress Notes * Alfredo Michaud Jr., PA - 10/18/2024 10:30 AM EDT Images from the original note were not included. Patient Name: Jovana Malik Date of : 1945 Date of Visit: 10/18/2024 Age: 79 y.o. Sex: female [facility] CONSULTATION REFERRING PROVIDER: Caitlyn Bowie MD PRIMARY CARE PROVIDER: Caitlyn Bowie MD REASON FOR CONSULTATION: Chief Complaint: [] Snoring [x] Excessive sleepiness [x] Sleep apnea [x] Fatigue [] Insomnia [] Nocturnal Movements, Behaviors, Sensation; Describe: History of Present Illness: The patient was referred to the [facility] for further evaluation and management.The patient reports that she has a history of obstructive sleep apnea, and is currently being treated for it with BiPAP. She states that her machine is greater than 5 years old, reports she was sent for a repeat sleep study for reassessment of her sleep apnea and to obtain a new device. Patient states sheis followed by a cleaner assistant whom she would like to manage all of her care and treatment. PMH: Congestive heart failure, asthma, COPD, pulmonary hypertension, past history of lung cancer Sleep Schedule: Workweek/Weekday: Bedtime 12 am Activities while awake in bed: [] worrying about sleep [] worrying about other things; Describe: [] watching TV [] reading [] computer tablet [] smart phone [] telephone call [] texting [] other: Describe: Nocturia frequency = 2-3/night Naps: Occasional Sleep Review of Systems: Sleep position: [] supine [] prone [] lateral: [x] no preference Feeling upon awakening: [] refreshed vs. [x] sleepy/tired [] achy (musculoskeletal) [] morning headache lasting minutes/hours [x] dryness of the mouth/throat [] others, specify [] snoring intensity: heard when: [] ear close to patient [] inside the room [] outside room, door open [] outside room, door closed [] apneas [] choking [] gasping [] gagging [] snort arousals [] cataplexy [] sleep paralysis [] hypnagogic hallucinations [] hypnopompic hallucinations [] automatic behavior [] sleep walking [] sleep terrors [] nightmares [] dream-related movement [] periodic limb movements [] leg cramps (Charley horse) [] bruxism [] restless legs/limbs symptoms: [] irresistible urge to move legs location: [] legs/calves [] Feet [] thighs [] Other: quality: [] creepy/crawly [] discomfort/achy [] pins and needles [] Other: activity during onset: [] sitting [] lying down [] others: time of onset/aggravation: [] morning [] early afternoon [] late afternoon [] evening [] night relieving factors: [] walking [] rubbing/massaging [] stretching [] other: [] falling asleep while driving [] car accident due to falling asleep while driving [] sleep attacks Past Medical History: Diagnosis Date Allergic reaction caused by a drug 10/13/2014 hospitalized Anxiety Arthritis Asthma Bronchiectasis (HC Code) Clotting disorder (HC Code) (HC CODE) (HC Code) Factor V Leiden COPD (chronic obstructive pulmonary disease) (HC Code) DVT (deep venous thrombosis) (HC Code) (HC CODE) (HC Code) 20-30 yrs ago, superficial clots last 2005 Dyspnea on exertion Epilepsy (HC Code) 30 years ago, hx temporal lobe seizures Esophageal reflux Exposed to tobacco smoke by family members smoking indoors Factor V Leiden (HC Code) History of ischemic colitis Hx of rheumatic fever child - required high dose PCN and phenobarb Hypercholesteremia Hyperlipidemia Hypothyroidism Insomnia FDC current use of anticoagulant (couamdin) Lung cancer (HC Code) 03/2009 st IIIA s/p LLL VATS resection Mildly restrictive lung disease MRSA (methicillin resistant staph aureus) culture positive Optic neuritis, left KANDY on CPAP Osteoarthritis Osteopenia Platelet disorder (HC Code) (HC CODE) (HC Code) Pulmonary embolism (HC Code) 01/2013 Swelling of gums Tremor Past Surgical History: Procedure Laterality Date ADENOIDECTOMY as child CATARACT REMOVAL/IOL IMPLANT COLONOSCOPY 05/01/2015 [facility] HYSTERECTOMY 1976 needed transfusion after LUNG CANCER SURGERY Left 04/2009 lower lobe resection (VATS) LUNG LOBECTOMY Left 04/29/2009 lower lobe TONSILLECTOMY as child needed transfusion after UPPER GASTROINTESTINAL ENDOSCOPY 05/01/2015 [facility] Work Schedule: retired Work days: [] Mondays through Fridays Work time: Exercise: [] Yes [] No Family History Problem Relation Age of Onset Blood Disorder Mother OB hemorrhage Lung cancer Mother Blood Disorder Maternal Grandmother OB hemorrhage, in childbirth Leukemia Sister myeloproliferative disorder transformed to AML, Lung cancer Maternal Uncle Lung cancer Maternal Grandfather Liver cancer Maternal Aunt Clotting disorder Maternal Aunt maternal aunts with clots Bladder cancer Maternal Aunt Blindness Maternal Aunt right eye blindness Cancer Maternal Cousin basal Current Outpatient Medications: albuterol (PROVENTIL HFA) 90 mcg/actuation HFA inhaler, Inhale 2 puffs into the lungs every 4 (four) hours as needed., Disp: , Rfl: albuterol (PROVENTIL, VENTOLIN) 2.5 mg /3 mL (0.083 %) nebulizer solution, Inhale 1 vial into the lungs every 4 (four) hours as needed.., Disp: , Rfl: ASCORBATE CALCIUM (VITAMIN C ORAL), Take 1,000 mg by mouth daily On occasion., Disp: , Rfl: augmented betamethasone dipropionate (DIPROLENE-AF) 0.05 % cream, Apply topically 2 (two) times daily. To both legs, Disp: 100 g, Rfl: 6 azelastine HCl (AZELASTINE NASL), by Nasal route., Disp: , Rfl: Bacillus coagulans (PROBIOTIC, B. COAGULANS, ORAL), Take 1 capsule by mouth daily , Disp: , Rfl: cetirizine (ZYRTEC) 10 MG tablet, Take 1 tablet (10 mg total) by mouth daily., Disp: , Rfl: cholecalciferol, vitamin D3, 125 mcg (5,000 unit) tablet, Take 1 tablet (5,000 Units total) by mouth daily., Disp: , Rfl: clindamycin (CLEOCIN) 150 MG capsule, TAKE FOUR CAPSULES BY MOUTH ONE HOUR PRIOR TO APPOINTMENT, Disp: , Rfl: 1 cyanocobalamin 1,000 mcg/mL injection vial, Inject 1 mL (1,000 mcg total) into the muscle every 30 (thirty) days. Dose uncertain, Disp: , Rfl: CYANOCOBALAMIN, VITAMIN B-12, ORAL, Take by mouth., Disp: , Rfl: diazepam (VALIUM) 5 MG tablet, Take 1 tablet (5 mg total) by mouth nightly as needed for anxiety., Disp: , Rfl: docusate sodium (COLACE) 100 MG capsule, Take 2 capsules (200 mg total) by mouth 2 (two) times daily., Disp: , Rfl: ELDERBERRY FRUIT ORAL, Take by mouth., Disp: , Rfl: EPIPEN 2-KORI 0.3 mg/0.3 mL (1:1,000) AtIn, 0.3 mg once as needed. (Patient not taking: Reported on 06/06/2024), Disp: , Rfl: ferrous gluconate (FERGON) 324 mg (38 mg iron) tablet, Take 1 tablet (324 mg total) by mouth daily with breakfast., Disp: 90 tablet, Rfl: 2 fluticasone propionate (FLONASE) 50 mcg/actuation nasal spray, Use 1 spray in each nostril daily., Disp: , Rfl: fluticasone-salmeterol (ADVAIR HFA) 230-21 mcg/actuation inhaler, Inhale 2 puffs into the lungs 2 (two) times daily., Disp: , Rfl: folic acid (FOLVITE) 1 mg tablet, Take 1 tablet (1 mg total) by mouth daily., Disp: 100 tablet, Rfl: 3 furosemide (LASIX) 20 MG tablet, Take 1 tablet (20 mg total) by mouth daily as needed.. (Patient taking differently: Take 2 tablets (40 mg total) by mouth daily as needed.), Disp: 30 tablet, Rfl: 5 guaifenesin (TUSSIN ORAL), Take by mouth., Disp: , Rfl: iron polysaccharides (NIFEREX) 150 mg iron capsule, Take 150 mg by mouth 2 (two) times daily., Disp: , Rfl: iron polysaccharides (NIFEREX) 150 mg iron capsule, Take 1 capsule (150 mg total) by mouth daily., Disp: 30 capsule, Rfl: 3 magnesium oxide 500 mg Cap, Take 500 mg by mouth daily., Disp: , Rfl: meclizine (ANTIVERT) 25 MG tablet, Take 1 tablet (25 mg total) by mouth 3 (three) times daily as needed., Disp: , Rfl: metoprolol succinate XL (TOPROL-XL) 25 mg 24 hr tablet, Take 1 tablet (25 mg total) by mouth 2 (two) times daily with breakfast and dinner. Take with or immediately following a meal., Disp: 180 tablet, Rfl: 3 montelukast (SINGULAIR) 10 mg tablet, Take 1 tablet (10 mg total) by mouth nightly., Disp: , Rfl: MULTIVITAMIN ORAL, Take by mouth., Disp: , Rfl: omeprazole (PRILOSEC) 40 MG capsule, Take 1 capsule (40 mg total) by mouth daily., Disp: , Rfl: predniSONE (DELTASONE) 5 mg tablet, Take 0.5 tablets (2.5 mg total) by mouth every other day. Take with food., Disp: , Rfl: rosuvastatin (CRESTOR) 10 mg tablet, Take 1 tablet (10 mg total) by mouth Every Monday, Monday, and Monday., Disp: 40 tablet, Rfl: 3 SYNTHROID 25 mcg tablet, Take 1 tablet by mouth 5 days a week and 2 tablets 2 days a week, Disp: , Rfl: tacrolimus (PROTOPIC) 0.1 % ointment, Apply topically 2 (two) times daily., Disp: 100 g, Rfl: 3 traZODone (DESYREL) 50 MG tablet, take 1 to 2 tablets by mouth at bedtime, Disp: , Rfl: 6 triamcinolone (KENALOG) 0.1 % ointment, Apply topically 2 (two) times daily., Disp: 454 g, Rfl: 5 vitamin B complex (B COMPLEX ORAL), Take by mouth., Disp: , Rfl: warfarin (COUMADIN) 2 MG tablet, Take 1 tablet (2 mg total) by mouth Daily @1800. Monday, Monday, Monday and 3mg on Monday, Monday, , Disp: , Rfl: warfarin (COUMADIN) 3 MG tablet, Take 3 mg by mouth Daily @1800 Monday, Monday, and 2mg on Monday, Monday, Monday, Disp: , Rfl: Allergies Allergen Reactions Avocado (Laurus Persea) Resp Distress Barium Iodide Throat Closes Clarithromycin Shortness Of Breath and Rash Diclofenac Shortness Of Breath and Rash Erythromycin Shortness Of Breath and Rash Flagyl [Metronidazole Hcl] Resp Distress Visual changes, back pain, weakness Gastrografin [Diatrizoate Shiloh-Diatrizoat Sod] Swelling Throat tightness Gentamicin Shortness Of Breath and Rash Iodinated Contrast Media Shortness Of Breath and Rash Mold Extracts Resp Distress Moxifloxacin Shortness Of Breath and Rash Penicillins Shortness Of Breath and Rash Sulfa (Sulfonamide Antibiotics) Shortness Of Breath and Rash Vancomycin Analogues Shortness Of Breath and Rash Amlodipine Other (See Comments) flushing Ciprofloxacin Patient reported that she couldn't walk Levaquin [Levofloxacin] Other (See Comments) painful tight joints Morphine Other (See Comments) Flushed, almost passed out Shrimp Itching and Cough Bee Pollen Resp Distress Allergic to bee stings Isosorbide Mononitrate Headache Novocain [Procaine] Unknown Other Mental Status Change Some muscle relaxers Vancomycin Voltaren [Diclofenac Sodium] Unknown Social History Socioeconomic History Marital status: Spouse name: Not on file Number of children: Not on file Years of education: Not on file Highest education level: Not on file Occupational History Not on file Tobacco Use Smoking status: Never Smokeless tobacco: Never Tobacco comments: 2nd hand smoking Substance and Sexual Activity Alcohol use: No Drug use: No Sexual activity: Not on file Other Topics Concern Not on file Social History Narrative Not on file Social Drivers of Health Financial Resource Strain: Not on file Food Insecurity: Not on file Transportation Needs: Not on file Physical Activity: Not on file Stress: Not on file Social Connections: Not on file Intimate Partner Violence: Not on file Housing Stability: Not on file Immunization History Administered Date(s) Administered COVID-19, MODERNA 12Y+, 0.5 mL 08/06/2020, 09/03/2020 Influenza, quad, adjuvanted, 0.5mL, preservative free 04/27/2020 Sleep Screening Tools [place] sleepiness scale= 8 STOP-BANG S (snore) Do you snore loudly (louder than talking or loud enough to be heard through closed doors)? [] T (tired) Do you often feel tired, fatigued, or sleepy during the daytime? [x] O (obstruction) Do you know if you stop breathing or has anyone witnessed you stop breathing while you are asleep? [] P (pressure) Do you have high blood pressure or on medication to control high blood pressure? [] Subtotal = 1 If you answered YES to two or more questions on the STOP portion you are at risk for Obstructive Sleep Apnea. It is recommended that you contact your primary care provider to discuss apossible sleep disorder. To find out if you are at moderate to severe risk of Obstructive Sleep Apnea, complete the BANG questions below: BANG B (BMI) Is your body mass index greater than 35 kg/m2? [] A (age) Are you 50 years old or older? [x] N (neck) Is your neck circumference greater than 16 inches (40 cm) [] G (gender) Are you a male? [] Total = 2 Systemic Review of Systems: [x] Grossly Negative [] Cough [] Phlegm: color: [] clear [] white [] yellow [] green [] johnston [] blood-tinged [] Dyspnea: [] At rest [] With exertion [] Chest pain [] Wheezing [] Orthopnea: [] Paroxysmal nocturnal dyspnea [] Nasal congestion [] Nasal drainage color: [] clear [] white [] yellow [] green [] johnston [] blood-tinged [] Heartburn [] Controlled with medication Systemic ROS: No fever, chills, or night sweats No nausea, vomiting No abdominal pain No diarrhea, constipation No rash No joint pains No bleeding diathesis No blood clots No focal weakness or numbness All other systems unremarkable. Physical Examination Ht 5' 2 (1.575 m) Wt 56.7 kg BMI 22.86 kg/m?? Wt Readings from Last 3 Encounters: 10/18/24 56.7 kg 11/01/22 59 kg 04/05/22 61.2 kg Alcoholic Beverage Consumption: denies Caffeinated beverage Consumption: 0 cup a day Tobacco use: denies Illicit drug use: denies Physical Exam:Not performed as patient's visit was via telemedicine I have reviewed the following laboratory tests, imaging studies, and other ancillary test results available on [employer] as part of my medical decision-making process: Based on the above CPAP titration, the patient's obstructive sleep apnea and COPD were successfullytreated with use of CPAP at 8 cm H2O with heated humidifier and Rachel view fullface mask with supplemental O2 at 2 L/min. I discussed these findings with the patient and recommended that order be sent for initiation of the above therapy. The patient initially stated that she would like her order sent to [facility], the patient then asked that the only cleaner assistant Dr. Kelly office [facility] to both submit for the new supplies and device as well as monitor her treatment and response to the treatment moving forward. I did offer her to have the order submitted so at least she can get the device as soon as possible however she declined this again requesting that Dr. Kelly's office either wants to handle ordering and management moving forward ASSESSMENT: History of obstructive sleep apnea (KANDY) Treated with BiPAP History of oxygen dependent COPD Fatigue/Daytime Sleepiness CHF Declination of initiation of CPAP therapy for treatment of obstructive sleep apnea Cognitive impairment with memory loss PLAN: Diagnostic Plan:I discussed with the patient, the plan of submission for a new CPAP device to be set at 8 cm H2O based on the patient's recent titration study. The patient however does not wish for this to be performed by this office and states her cleaner assistant Dr. Kelly will take care of it and monitor her on moving forward [] Diagnostic PSG [] CPAP Titration Study [] CPAP Acclimation study/ PAP Nap [] Split-night polysomnography First-part: Diagnostic Second part: Therapeutic: [] CPAP [] Home sleep apnea test [] MSLT [] MWT [] Serum iron, ferritin, TIBC, transferrin saturation [] Complete PFT with bronchodilator [] Six minute walk test [] Oxygen desaturation study [] ABG [] FENO [] CXR Therapeutic Plan: Weight loss via healthy eating and exercise. Walk up to 30 minutes 3-5 days a week. Eat more fruits, vegetables, beans, nuts, seeds, etc. Avoid or minimize meat, dairy, eggs, processed foods or refined carbohydrates. The patient was advised not to drive when sleepy due to the possible risk of having a motor vehiclecollision that might result in injury to self or others. If the patient feels sleepy while driving,the patient was advised to farmworker pullet farm at a safe location, drink a caffeinated beverage and take a nap. The patient should proceed to drive only when alert enough to do so. I explained to the patient the mechanism and adverse health effects of untreated KANDY. Adverse health effects may include sleepiness, fatigue, depression, and insomnia as well as and increased risk ofmotor vehicle accidents, hypertension, heart disease, irregular heart rhythm, stroke, diabetes, anddeath. I discussed the efficacy, benefits, and risks of the following therapeutic options for KANDY: A. Continuous positive airway pressure (CPAP) B. Oral appliance therapy C. ENT surgery, specifically: uvulopalatopharyngoplasty (UPPP) D. Hypoglossal nerve stimulation Patient should continue treatment for all other chronic conditions as previously prescribed I discussed all of the results with the patient, including her need to initiate CPAP therapy at a pressure of 8 cm H2O with 2 L of supplemental oxygen. I did explain at night could submit the order for the above set up to get the set up initiated. The patient however stated that she did not wish for this office to file any type of submission's for her supplies. She states that her cleaner assistant, Dr. Kelly would be submitting any paperwork for a new device, they would also be following up with her on an ongoing basis. Patient fully understands all of the risk and complications associated with untreated or Ineffectively treated sleep disordered breathing including but not limited to cardiopulmonary arrest and sudden . Alfredo Michaud jr., PA-C [facility] Electronically Signed by EMELIA Veronica, October 18, 2024 documented in this encounter Plan of Treatment Upcoming Encounters Date Type Department Care Team (Late st Contact Info) Description 10/31/2024 1:00 PM EDT Office Visit [facility] at [address] [place] [address], [place] [address] Ronald Mills MD [address] [place] [phone] documented as of this encounter Visit Diagnoses Diagnosis KANDY (obstructive sleep apnea)- Primary Obstructive sleep apnea (adult) (pediatric) Fatigue, unspecified type Excessive daytime sleepiness MCI (mild cognitive impairment) with memory loss Mild cognitive impairment, so stated documented in this encounter Additional Health Concerns Assessment Noted Time PHQ-9 Depression Total Score: 2 11/07/19 19 2:06 PM EDT documented as of this encounter Care Teams Superintendent Maintenance Relationship Specialty Start Date End Date Caitlyn Bowie MD [address] [address] PCP - General Internal Medicine 05/06/21 documented as of this encounter
--- OUTSIDE RECORDS SUMMARY | 2024-10-23 17:56 | XMS_ITS ---
Author Organization [facility] Address [address] [facility] [address] [place] [address] Care Team Providers Care Family Protection Specialist Name Role Phone EVELIN RAMSAY Primary Care Provider Yenny Hou Unavailable [phone] Allergies Allergen (clinical drug ingredient) Drug/Non Drug [...] bedtime, 1/2 tab prn during the day [facility] 06/10/2014 Active traZODone HCl 50MG 1 ORAL at bedtime fo r -3 [facility] 06/10/2014 Active Meclizine HCl 25 MG 1 tablet as needed Orally [facility] 06/10/2014 Active Advair HFA 230-21MCG/ACT [...] Synthroid 25MCG 1 ORAL daily for -3 [facility] 06/10/2014 Active Singulair 10 MG [...] 25 Encounters Encounter Location Date Provider Diagnosis [address] [place] [address] 07/18/2024 Yenny Elizalde Encounter for screening mammogram [...] Notes * TONIE WATSONOB:1945 (79 yo F)Acc No.[id number]:07/18/2024 PROGRESS NOTES Patient:?CINDA WATSON Appointment Provider:?Yenny doan M.D. :1945???Age:79 Y???Sex:Female D ate:07/18/2024 Address:[address] [place] [address] Pcp:EVELIN RAMSAY Subjective: * Chief Complaints: * ???LT BREAST PAIN * HPI: ???New/Follow-up Patient Consult:? PAT C/O LEFT BREAST DISCOMFORT OF A FEW DAYS DURATION.? NO NIPPLE DISCHARGE, NO PALPABLE MASSES.? HER LAST MAMMOGRAM DONE IN AUG 2023 WAS NORMAL. * ROS:?general:?no?chest pain.?no?palpitations.?no?headache.?no?cough.?no?shortness of breath.?no?fever.?no?unexplained weight loss.?no?nausea/vomiting.?no?change in bowel movements.?no blood in stool.?no?genitourinary complaints.?no?skin complaints.? * Medical History:? * Mail Sorter History:?/ Para?2/2.?Sexual activity?not currently sexually active.?Last Pap [...] Elizalde M.D. Date:?07/18/2024 Generated for Arely paige/Sebastian/Brandonsmitting on:?10/23/2024 05:55 PM EDT History and Physical Notes * [...]
--- OUTSIDE RECORDS SUMMARY | 2024-10-23 17:56 | XMS_ITS | Encounter Summary ---
Author Organization [facility] Address [address] [place] [phone] Care Team Providers Care Nail Polish Brush Machine Feeder Name Role Phone Caitlyn Bowie MD Primary Care Provider [phone]- [phone] Encounter Details Date Type Department Care Team (Late st Contact Info) Description 06/08/2022 Scanned Document INTERFACE DEFAULT [address] [place] [phone] System, Provider Not In Social History Tobacco [...] Office Visit [facility] at [address] [place] [address] Ronald Mills MD [address] [place] [phone] documented as of this encounter Procedures [...] documented as of this encounter Care Teams Nail Polish Brush Machine Feeder Relationship Specialty Start Date End Date Caitlyn Bowie MD [address] [phone] PCP - General Internal Medicine 05/06/21 documented as of this encounter
--- OUTSIDE RECORDS SUMMARY | 2024-10-23 17:56 | XMS_ITS | Encounter Summary ---
Author Organization [facility] Address [address] [place] [address] Care Team Providers Care Multi Mission Helicopter Aircrewman Name Role Phone Caitlyn Bowie MD Primary Care Provider [phone]- [phone] Encounter Details Date Type Department Care Team (Late st Contact Info) Description 04/22/2022 Scanned Document INTERFACE DEFAULT [address] [place] [phone] System, Provider Not In Social History Tobacco [...] Office Visit [facility] at [address] [place] [address] Ronald Mills MD [address] [place] [phone] documented as of this encounter Procedures [...] as of this encounter Care Teams Multi Mission Helicopter Aircrewman Relationship Specialty Start Date End Date Caitlyn Bowie MD [address] [phone] PCP - General Internal Medicine 05/06/21 documented as of this encounter
--- OUTSIDE RECORDS SUMMARY | 2024-10-23 17:56 | XMS_ITS | Encounter Summary ---
Author Organization [facility] and [facility] Address [address] [place] [phone] Care Team Providers Care Counter Maker Name Role Phone Caitlyn Bowie MD Primary Care Provider +1- [phone] Encounter Details Date Type Department Care Team (Latest Contact Info) Description 12/25/2015 Transcribed Orders [facility] Draw Station [address] [place] [address] [place] [address] Osmel Briscoe MD Other abnormality of red [...] [facility] Visit [facility] [address] [place] [address] Ronald Mills MD [address] [place] [phone] documented as of this encounter Results * Free kappa lambda with ratio, serum ( GH Q YH) (12/25/2015 10:09 AM EDT) Ig [place] Free Light Chain 1.84 0.33 - 1.94 mg/dL [facility] Ig Lambda Free Light Chain 1.96 0.57 - 2.63 mg/dL [facility] [place]/Lambda FLC Ratio 0.94 0.26 - 1.65 [facility] Blood specimen (specimen) 12/25/2015 10:09 AM EDT Osmel Briscoe MD LAB BLOOD ORDERABLES Final R esult Performing Organization Address [facility] de Phone Number [facility] [address] [place] [address] * Immunofixation, serum ( L Q YH) (12/25/2015 10:09 AM EDT) [facility] Immunofixation Electrophoresis Gel See below See Interp. [facility] Comment: INTERPRETATION: Normal immunofixation electrophoresis. No evidence of a serum monoclonal component. SIGNED BY:Keyur KAYE MD ON 12/29/2015 14:56:04 INTERPRETATION REVIEW : I have reviewed these results and agree with this interpretation. Blood specimen (specimen) 12/25/2015 10:09 AM EDT Osmel Briscoe MD LAB BLOOD ORDERABLES Final R esult Performing Organization Address [facility] de Phone Number [facility] [address] [place] [address] * (ABNORMAL) Protein electrophoresis, serum ( GH L YH) (12/25/2015 10:09 AM EDT) Albumin Electrophoresis 3.45(L) 3.50 - 4.70 g/dL [facility] Gcwve-2-Avcbchee 0.16 0.10 - 0.30 g/dL [facility] Xnvxp-7-Logqydjl 0.81 0.60 - 1.00 g/dL [facility] Beta Globulin 0.86 0.70 - 1.20 g/dL [facility] Gamma Globulin 0.92 0.70 - 1.50 g/dL [facility] SPEP Interpretation See below See Interp. [facility] Comment: INTERPRETATION: No discrete abnormal [...] ORDERABLES Final R esult Performing Organization Address [facility]/ZIP Co de Phone Number [facility] [address] [place] [address] * Reticulocytes (GH L Q YH) (12/25/2015 10:09 AM EDT) Reticulocyte Count 2.1 0.6 - 2.7 % [facility] Blood specimen (specimen) 12/25/2015 10:09 AM EDT Osmel Briscoe MD LAB BLOOD ORDERABLES Final R esult Performing Organization Address [facility] Co de Phone Number [facility] [address] [place] [address] * (ABNORMAL) Sedimentation rate (ESR) (12/25/2015 10:09 AM EDT) Sed Rate 27(H) 0 - 20 mm/hr [facility] Blood specimen (specimen) 12/25/2015 10:09 AM EDT Osmel Briscoe MD LAB BLOOD ORDERABLES Final R esult Performing Organization Address [facility] Co de Phone Number [facility] [address] [place] [address] * Ferritin (12/25/2015 10:09 AM EDT) Ferritin 68 9 - 120 ng/mL [facility] Blood specimen (specimen) 12/25/2015 10:09 AM EDT Osmel Briscoe MD LAB BLOOD ORDERABLES Final R esult Performing Organization Address [facility] Co de Phone Number [facility] [address] [place] [address] * Iron and TIBC (12/25/2015 10:09 AM EDT) Iron 110 50 - 170 ug/dL [facility] TIBC 290 250 - 450 ug/dL [facility] Iron Saturation 38 15 - 50 [facility] Blood specimen (specimen) 12/25/2015 10:09 AM EDT Osmel Briscoe MD LAB BLOOD ORDERABLES Final R esult Performing Organization Address [facility] de Phone Number [facility] [address] [place] [address] * Vitamin D 25 hydroxy (BH L YH) (12/25/2015 10:09 AM EDT) Vit D, 25-Hydroxy 43 20 - 50 ng/mL [facility] Comment: A serum 25(OH) vitamin [...] ORDERABLES Final R esult Performing Organization Address City/[facility]/ZIP Co de Phone Number [facility] [address] [place] [address] * TSH (BH L YH) (12/25/2015 10:09 AM EDT) Pathologist [facility] TSH cancelled 0.3 - 4.2 uU/mL [facility] TSH 1.62 0.3 - 4.2 uU/mL [facility] Comment:This test is a third generation TSH assay. Blood specimen (specimen) 12/25/2015 10:09 AM EDT Osmel Briscoe MD LAB BLOOD ORDERABLES Final R esult Performing Organization Address City/[facility] Co de Phone Number [facility] [address] [place] [address] * (ABNORMAL) CBC and differential (12/25/2015 10:09 AM EDT) [facility] CBC with Differential See Below [facility] WBC 9.9 4.0 - 10.0 x 1000/uL [facility] RBC 4.0 3.8 - 5.2 M/uL [facility] Hemoglobin 13.4 12.0 - 16.0 g/dL [facility] Hematocrit 41.0 37.0 - 47.0 % [facility] MCV 101(H) 78 - 94 fL [facility] MCH 33.2(H) 27.0 - 33.0 pg [facility] MCHC 32.8(L) 33.0 - 37.0 g/dL [facility] RDW 12.5 10.8 - 14.5 % [facility] Platelets 265 150 - 350 x 1000/uL [facility] MPV 7.2 6.0 - 10.0 fL [facility] Neutrophils 82(H) 38 - 71 % [facility] Lymphocytes 7(L) 14 - 46 % [facility] Monocytes 10 2 - 15 % [facility] Eosinophils 1 0 - 5 % [facility] Basophils 0 0 - 2 % [facility] ANC (Abs Neutrophil Count) 8.1 1.0 - 9.0 x 1000/uL [facility] Absolute Lymphocyte Count 0.7 0.6 - 4.6 x 1000/uL [facility] Blood specimen (specimen) ARM NEC / Unknown 12/25/2015 10:09 AM EDT us Osmel Briscoe MD LAB BLOOD ORDERABLES Final R esult [facility] [address] [place] [address] documented in this encounter Visit Diagnoses Diagnosis [...] as of this encounter Care Teams Counter Maker Relationship Specialty Start Date End Date Caitlyn Bowie MD [facility] [address] [address] PCP - General Internal Medicine 05/06/21 [place] Kelly MD Pulmonary Department [address] [place] [address], [address] [place] [address] Physician Pulmonary Disease 09/06/17 06/22/20 documented as of this encounter
--- OUTSIDE RECORDS SUMMARY | 2024-10-23 17:56 | XMS_ITS | Encounter Summary ---
Author Organization [facility] and [facility] Address [address] [place] [address] Care Team Providers Care Marketing Underwriter Name Role Phone Caitlyn Bowie MD Primary Care Provider +1- [phone] Encounter Details Date Type Department Care Team (Late Contact Info) Description 04/12/2022 Scanned Document [facility] Health Information Management [address] [place] [address] External, Provider Social History Tobacco Use Types [...] [facility] Visit [facility] [address] [place] [address] Ronald Mills MD [address] [place] [phone] documented as of this encounter Procedures [...] as of this encounter Care Teams Marketing Underwriter Relationship Specialty Start Date End Date Caitlyn Bowie MD [address] [address] PCP - General Internal Medicine 05/06/21 documented as of this encounter
--- OUTSIDE RECORDS SUMMARY | 2024-10-23 17:56 | XMS_ITS | Encounter Summary ---
Author Organization [facility] and [facility] Address [address] [place] [address] Care Team Providers Care Land Development Project Manager Name Role Phone Caitlyn Bowie MD Primary Care Provider +1- [phone] Encounter Details Date Type Department Care Team (Late st Contact Info) Description 12/16/2015 Scanned Document [facility] Health Information Management [address] [place] [address] External, Provider Social History Tobacco Use Types [...] Office Visit [facility] at [address] [place] [address] Ronald Mills MD [address] [place] [phone] documented as of this encounter Procedures Procedure Name Priority Date/Time Associated Diagnosis Comments US RESULT SCAN Routine 12/16/2015 documented in this encounter Results * US Result Scan (12/16/2015) us Provider External IMG SCAN REPORTS Edited Result - Final [facility] [place], [place], [facility] documented in this encounter Visit Diagnoses Not on filedocumented in this encounter Additional Health Concerns Infection Onset Date Last Indicated Resolved Time COVID-19 03/05/2022 03/05/2022 03/15/2022 7:18 PM EDT documented as of this encounter Care Teams Land Development Project Manager Relationship Specialty Start Date End Date Caitlyn Bowie MD [address] [facility] [address] [place] [address] PCP - General Internal Medicine 05/06/21 [place] Kelly MD Pulmonary Department [address] [facility] [place] [address] Physician Pulmonary Disease 09/06/17 06/22/20 documented as of this encounter
--- OUTSIDE RECORDS SUMMARY | 2024-10-23 17:56 | XMS_ITS | Encounter Summary ---
Author Organization [facility] Address [address] [place] [address] Care Team Providers Care Fusing Machine Feeder Name Role Phone Caitlyn Bowie MD Primary Care Provider +1- [phone] Encounter Details Date Type Department Care Team (Late st Contact Info) Description 05/04/2022 Scanned Document INTERFACE DEFAULT [address] [place] [address] System, Provider Not In Social History Tobacco [...] Office Visit [facility] at [address] [place] [address] Ronald Mills MD [address] [place] [phone] documented as of this encounter Visit Diagnoses Not on filedocumented in this encounter Additional Health Concerns Assessment Noted Time PHQ-9 Depression Total Score: 2 11/07/19 19 2:06 PM EDT documented as of this encounter Care Teams Fusing Machine Feeder Relationship Specialty Start Date End Date Caitlyn Bowie MD [address] [address] PCP - General Internal Medicine 05/06/21 documented as of this encounter
--- OUTSIDE RECORDS SUMMARY | 2024-10-23 17:56 | XMS_ITS | Encounter Summary ---
Author Organization [facility] and [facility] Address [address] [place] [address] Care Team Providers Care Millwright Apprentice Name Role Phone Caitlyn Bowie MD Primary Care Provider +1- [phone] Reason for Visit * Reason Onset Date Comments Labs Only 10/23/2024 Encounter Details Date Type Department Care Team (Late st Contact Info) Description 10/23/2024 Telephone [facility] at [address] [address] Ronald Mills MD [address] [place] [phone] Labs Only Social History Tobacco Use Types Packs/Day [...] Miscellaneous Notes * Telephone Encounter - Paola Bhandari - 10/23/2024 11:58 AM EDT Patient called in regards to lab order from Dr. Mills No active orders on file. To please fax lab order to [phone] yessi to have results ready prior to return alonso. documented in this encounter Plan of Treatment Upcoming Encounters Date Type Department Care Team ([facility] st Contact Info) Description 10/31/2024 1:00 PM EDT Office Visit [facility] [address] [facility] - [address] [place] [address] Ronald Mills MD [address] [facility] [address] [place] [address] documented as of this encounter Visit Diagnoses Not on filedocumented in this encounter Additional Health Concerns Assessment Noted Time PHQ-9 Depression Total Score: 2 11/07/19 19 2:06 PM EDT documented as of this encounter Care Teams Millwright Apprentice Relationship Specialty Start Date End Date Caitlyn Bowie MD [address] [address] PCP - General Internal Medicine 05/06/21 documented as of this encounter
--- OUTSIDE RECORDS SUMMARY | 2024-10-23 17:56 | XMS_ITS | Encounter Summary ---
Author Organization [facility] Address [address] [place] [phone] Phone Care Team Providers Care Kiln Operator Helper Name Role Phone Caitlyn Bowie MD Primary Care Provider +1- [phone] Encounter Details Date Type Department Care Team (Late st Contact Info) Description 08/30/2024 Abstract [facility] [address] [place] [address] [address] [place] [address] Adalgisa Whitney MD [address] [place] [address] 202 [place] [address] Social History Tobacco Use Types [...] Office Visit [facility] at [address] [address] Ronald Mills MD [address] [place] [phone] documented as of this encounter Visit Diagnoses Not on filedocumented in this encounter Additional Health Concerns Assessment Noted Time PHQ-9 Depression Total Score: 2 11/07/19 19 2:06 PM EDT documented as of this encounter Care Teams Kiln Operator Helper Relationship Specialty Start Date End Date Caitlyn Bowie MD [address] [address] PCP - General Internal Medicine 05/06/21 documented as of this encounter
--- OUTSIDE RECORDS SUMMARY | 2024-10-23 17:56 | XMS_ITS | Encounter Summary ---
Author Organization [facility] and [facility] Address [address] [place] [address] Care Team Providers Care Farm Implement Engine Mechanic Name Role Phone Caitlyn Bowie MD Primary Care Provider +1- [phone] Encounter Details Date Type Department Care Team (Late st Contact Info) Description 04/28/2022 Scanned Document INTERFACE DEFAULT [address] [place] [address] System, Provider Not In Social History Tobacco [...] Office Visit [facility] at [address] [place] [address] Ronald Mills MD [address] [place] [phone] documented as of this encounter Procedures [...] as of this encounter Care Teams Farm Implement Engine Mechanic Relationship Specialty Start Date End Date Caitlyn Bowie MD [facility] [address] [address] PCP - General Internal Medicine 05/06/21 documented as of this encounter
--- OUTSIDE RECORDS SUMMARY | 2024-10-23 17:56 | XMS_ITS | Encounter Summary ---
Author Organization [facility] and [facility] Address [address] [place] [address] Care Team Providers Care Projector Operator Name Role Phone Caitlyn Bowie MD Primary Care Provider +1- [phone] Reason for Visit * Reason Onset Date Comments Other 10/22/2024 Encounter Details Date Type Department Care Team (Late st Contact Info) Description 10/22/2024 Telephone [facility] at [address] [address] Ronald Mills MD [address] [place] [phone] Other Social History Tobacco Use Types [...] encounter Miscellaneous Notes * Telephone Encounter - Christine Beck - 10/22/2024 2:15 PM EDT Patient called and requested that her open lab orders be submitted to [facility], located in [place], [place]. Called and obtained fax number ([phone]) - orders have been sent. Advised patient to call and verify that the lab has received her orders prior to attending - she expressed understanding (is scheduled for an appointment with Dr. Mills on 10/31/24). documented in this encounter Plan of Treatment Upcoming Encounters Date Type Department Care Team (Late st Contact Info) Description 10/31/2024 1:00 PM EDT Office Visit [facility] at [address] [facility] [place] [facility] [place] [address] Ronald Mills MD [address] [phone] documented as of this encounter Visit Diagnoses Not on filedocumented in this encounter Additional Health Concerns Assessment Noted Time PHQ-9 Depression Total Score: 2 11/07/19 19 2:06 PM EDT documented as of this encounter Care Teams Projector Operator Relationship Specialty Start Date End Date Caitlyn Bowie MD [address] [address] PCP - General Internal Medicine 05/06/21 documented as of this encounter
--- OUTSIDE RECORDS SUMMARY | 2024-10-23 17:56 | XMS_ITS | Encounter Summary ---
Author Organization [facility] and [facility] Address [address] [place] [address] Care Team Providers Care Legal Support Specialist Name Role Phone Caitlyn Bowie MD Primary Care Provider +1- [phone] Encounter Details Date Type Department Care Team (Late st Contact Info) Description 05/16/2023 Scanned Document INTERFACE DEFAULT [address] [place] [address] System, Provider Not In Social History Tobacco [...] Office Visit [facility] at [address] [place] [address] Ronald Mills MD [address] [place] [phone] documented as of this encounter Procedures [...] as of this encounter Care Teams Legal Support Specialist Relationship Specialty Start Date End Date Caitlyn Bowie MD [address] [phone] PCP - General Internal Medicine 05/06/21 documented as of this encounter
--- OUTSIDE RECORDS SUMMARY | 2024-10-23 17:56 | XMS_ITS | Encounter Summary ---
Author Organization [facility] Address [address] [place] [address] Care Team Providers Care Hot Plate Press Operator Name Role Phone Caitlyn Bowie MD Primary Care Provider +1- [phone] Encounter Details Date Type Department Care Team (Late st Contact Info) Description 01/08/2022 Scanned Document INTERFACE DEFAULT [address] [place] [address] System, Provider Not In Social History Tobacco [...] Office Visit [facility] at [address] [place] [address] Ronald Mills MD [address] [place] [phone] documented as of this encounter Procedures [...] of this encounter Care Teams Hot Plate Press Operator Relationship Specialty Start Date End Date Caitlyn Bowie MD [address] [address] PCP - General Internal Medicine 05/06/21 documented as of this encounter
--- OUTSIDE RECORDS SUMMARY | 2024-10-23 17:56 | XMS_ITS | Encounter Summary ---
Author Organization [facility] Address [address] [place] [address] Care Team Providers Care Business Systems Manager Name Role Phone Caitlyn Bowie MD Primary Care Provider +1- [phone] Encounter Details Date Type Department Care Team (Late st Contact Info) Description 06/21/2022 Scanned Document INTERFACE DEFAULT [address] [place] [address] System, Provider Not In Social History Tobacco [...] Office Visit [facility] at [address] [place] [address] Ronald Mills MD [address] [place] [phone] documented as of this encounter Procedures Procedure Name Priority Date/Time Associated Diagnosis Comments CARDIAC CATHETERIZATION 12/13/20 22 12:00 AM EST documented in this encounter [...] as of this encounter Care Teams Business Systems Manager Relationship Specialty Start Date End Date Caitlyn Bowie MD [address] [address] PCP - General Internal Medicine 05/06/21 documented as of this encounter
--- OUTSIDE RECORDS SUMMARY | 2024-10-23 17:56 | XMS_ITS | Encounter Summary ---
Author Organization [facility] and [facility] Address [address] [place] [phone] Care Team Providers Care Civil Structural Designer Name Role Phone Caitlyn Bowie MD Primary Care Provider +1- [phone] Encounter Details Date Type Department Care Team (Late st Contact Info) Description 04/19/2023 Scanned Document INTERFACE DEFAULT [address] [place] [address] System, Provider Not In Social History Tobacco [...] Office Visit [facility] at [address] - [address] [place] [address] Ronald Mills MD [address] [place] [phone] documented as of this encounter Procedures [...] as of this encounter Care Teams Civil Structural Designer Relationship Specialty Start Date End Date Caitlyn Bowie MD [address] [address] PCP - General Internal Medicine 05/06/21 documented as of this encounter
--- OUTSIDE RECORDS SUMMARY | 2024-10-23 17:56 | XMS_ITS | Encounter Summary ---
Author Organization [facility] and [facility] Address [address] [place] [address] Care Team Providers Care Billboard Installer Name Role Phone Caitlyn Bowie MD Primary Care Provider +1- [phone] Encounter Details Date Type Department Care Team (Late st Contact Info) Description 04/13/2023 Scanned Document INTERFACE DEFAULT [address] [place] [address] System, Provider Not In Social History Tobacco [...] Office Visit [facility] at [address] [place] [address] Ronald Mills MD [address] [place] [phone] documented as of this encounter Procedures [...] documented as of this encounter Care Teams Billboard Installer Relationship Specialty Start Date End Date Caitlyn Bowie MD [address] [address] PCP - General Internal Medicine 05/06/21 documented as of this encounter
--- OUTSIDE RECORDS SUMMARY | 2024-10-23 17:56 | XMS_ITS | Encounter Summary ---
Author Organization [facility] and [facility] Address [address] [place] [address] Care Team Providers Care Provider Network Mgr Name Role Phone Caitlyn Bowie MD Primary Care Provider +1- [phone] Encounter Details Date Type Department Care Team (Late st Contact Info) Description 04/18/2022 Scanned Document INTERFACE DEFAULT [address] [place] [address] System, Provider Not In Social History Tobacco [...] Office Visit [facility] at [address] [place] [address] Ronald Mills MD [address] [place] [phone] documented as of this encounter Visit Diagnoses Not on filedocumented in this encounter Additional Health Concerns Assessment Noted Time PHQ-9 Depression Total Score: 2 11/07/19 19 2:06 PM EDT documented as of this encounter Care Teams Provider Network Mgr Relationship Specialty Start Date End Date Caitlyn Bowie MD [address] [address] PCP - General Internal Medicine 05/06/21 documented as of this encounter
--- OUTSIDE RECORDS SUMMARY | 2024-10-23 17:56 | XMS_ITS | Encounter Summary ---
Author Organization [facility] Address [address] [place] [address] Care Team Providers Care Varnish Thinner Name Role Phone Caitlyn Bowie MD Primary Care Provider +1- [phone] Encounter Details Date Type Department Care Team (Late st Contact Info) Description 05/10/2022 Scanned Document Cardiovascular Medicine at [address] [place] [address] [phone] Norma Renee MD [address] [place] [phone] Social History Tobacco Use Types Packs/Day [...] EDT Office Visit Hematology Program at [address] - [address] [phone] Ronald Mills MD [address] [place] [phone] documented as of this encounter Visit Diagnoses Not on filedocumented in this encounter Additional Health Concerns Assessment Noted Time PHQ-9 Depression Total Score: 2 11/07/19 19 2:06 PM EDT documented as of this encounter Care Teams Varnish Thinner Relationship Specialty Start Date End Date Caitlyn Bowie MD [address] [phone] PCP - General Internal Medicine 05/06/21 documented as of this encounter
--- OUTSIDE RECORDS SUMMARY | 2024-10-23 17:56 | XMS_ITS | Encounter Summary ---
Author Organization [facility] Address [address] [place] [address] Care Team Providers Care Implement Mechanic Name Role Phone Caitlyn Bowie MD Primary Care Provider +1- [phone] Encounter Details Date Type Department Care Team (Late st Contact Info) Description 12/04/2018 Scanned Document [facility] Health Information Management [address] [place] [address] External, Provider Social History Tobacco Use Types [...] Office Visit [facility] at [address] - [address] [place] [address] Ronald Mills MD [address] [place] [phone] documented as of this encounter Visit Diagnoses Not on filedocumented in this encounter Additional Health Concerns Infection Onset Date Last Indicated Resolved Time COVID-19 03/05/2022 03/05/2022 03/15/2022 7:18 PM EDT Assessment Noted Time PHQ-9 Depression Total Score: 2 11/07/19 19 2:06 PM EDT documented as of this encounter Care Teams Implement Mechanic Relationship Specialty Start Date End Date Caitlyn Bowie MD 3400 [facility] 1 [place] [address] PCP - General Internal Medicine 05/06/21 Henry Kelly MD Pulmonary Department 175 [facility], [address] [place] [address] Physician Pulmonary Disease 09/06/17 06/22/20 documented as of this encounter
--- OUTSIDE RECORDS SUMMARY | 2024-10-23 17:56 | XMS_ITS | Encounter Summary ---
Author Organization [facility] and [facility] Address [address] [place] [address] Care Team Providers Care Differential Specialist Name Role Phone Caitlyn Bowie MD Primary Care Provider +1- [phone] Encounter Details Date Type Department Care Team (Late st Contact Info) Description 12/31/2015 Scanned Document Elect[facility]iology [facility] Cardiac Arrhythmia Program [address] [place] [phone] External, Provider Social History Tobacco Use Types [...] EDT Office Visit Hematology Program at [address] [address] Ronald Mills MD [address] [place] [phone] documented as of this encounter Procedures Procedure Name Priority Date/Time Associated Diagnosis Comments LAB SCAN Routine 12/31/2015 documented in this encounter Results * Lab Scan (12/31/2015) Blood specimen (specimen) us Provider External LAB BLOOD ORDERABLES Final Res ult Performing Organization Address City/State/[facility] Co de Phone Number [facility] documented in this encounter Visit Diagnoses Not on filedocumented in this encounter Additional Health Concerns Infection Onset Date Last Indicated Resolved Time COVID-19 03/05/2022 03/05/2022 03/15/2022 7:18 PM EDT documented as of this encounter Care Teams Differential Specialist Relationship Specialty Start Date End Date Caitlyn Bowie MD 3400 [facility] 1 [place] [address] PCP - General Internal Medicine 05/06/21 Henry Kelly MD Pulmonary Department 175 [facility], [address] [place] [address] Physician Pulmonary Disease 09/06/17 06/22/20 documented as of this encounter
--- OUTSIDE RECORDS SUMMARY | 2024-10-23 17:56 | XMS_ITS | Encounter Summary ---
Author Organization [facility] Address [address] [place] [address] Care Team Providers Care Fitness Assistant Name Role Phone Caitlyn Bowie MD Primary Care Provider +1- [phone] Encounter Details Date Type Department Care Team (Late st Contact Info) Description 09/09/2015 Scanned Document [facility] Health Information Management [address] [place] [phone] External, Provider Social History Tobacco Use Types [...] Office Visit [facility] at [address] - [address] [place] [address] Ronald Mills MD [address] [place] [phone] documented as of this encounter Procedures Procedure Name Priority Date/Time Associated Diagnosis Comments LAB SCAN Routine 09/09/2015 documented in this encounter Results * Lab Scan (09/09/2015) Blood specimen (specimen) us Provider External LAB BLOOD ORDERABLES Final Res ult [facility] documented in this encounter Visit Diagnoses Not on filedocumented in this encounter Additional Health Concerns Infection Onset Date Last Indicated Resolved Time COVID-19 03/05/2022 03/05/2022 03/15/2022 7:18 PM EDT documented as of this encounter Care Teams Fitness Assistant Relationship Specialty Start Date End Date Caitlyn Bowie MD 34[address] [facility] 1 [place] [address] PCP - General Internal Medicine 05/06/21 Henry Kelly MD Pulmonary Department 175 [facility], [address] [place] [address] Physician Pulmonary Disease 09/06/17 06/22/20 documented as of this encounter
--- OUTSIDE RECORDS SUMMARY | 2024-10-23 17:56 | XMS_ITS | Encounter Summary ---
Author Organization [facility] and [facility] Address [address] [place] [address] Care Team Providers Care Acting Section Chief Name Role Phone Caitlyn Bowie MD Primary Care Provider +1- [phone] Reason for Visit * Reason Comments Results Encounter Details Date Type Department Care Team (Late st Contact Info) Description 03/15/2022 Telephone [facility] at [address] [address] Ronald Mills MD [address] [place] [phone] Results Social History Tobacco Use Types [...] Office Visit [facility] at [address] - [address] [facility] [place] [address] Ronald Mills MD [address] [facility] [address] [place] [address] documented as of this encounter Visit Diagnoses Not on filedocumented in this encounter Additional Health Concerns Infection Onset Date Last Indicated Resolved Time COVID-19 03/05/2022 03/05/2022 03/15/2022 7:18 PM EDT Assessment Noted Time PHQ-9 Depression Total Score: 2 11/07/19 19 2:06 PM EDT documented as of this encounter Care Teams Acting Section Chief Relationship Specialty Start Date End Date Caitlyn Bowie MD [address] [address] PCP - General Internal Medicine 05/06/21 documented as of this encounter
--- OUTSIDE RECORDS SUMMARY | 2024-10-23 17:56 | XMS_ITS | Encounter Summary ---
Author Organization [facility] and [facility] Address [address] [place] [address] Care Team Providers Care Wedding Planner Name Role Phone Caitlyn Bowie MD Primary Care Provider +1- [phone] Encounter Details Date Type Department Care Team (Late Contact Info) Description 03/02/2022 Scanned Document [facility] Health Information Management [address] [place] [phone] External, Provider Social History Tobacco Use Types [...] Office Visit [facility] at [address] - [address] [place] [address] Ronald Mills MD [address] [place] [phone] documented as of this encounter Visit Diagnoses Not on filedocumented in this encounter Additional Health Concerns Infection Onset Date Last Indicated Resolved Time COVID-19 03/05/2022 03/05/2022 03/15/2022 7:18 PM EDT Assessment Noted Time PHQ-9 Depression Total Score: 2 11/07/19 19 2:06 PM EDT documented as of this encounter Care Teams Wedding Planner Relationship Specialty Start Date End Date Caitlyn Bowie MD [address] [address] PCP - General Internal Medicine 05/06/21 documented as of this encounter
--- OUTSIDE RECORDS SUMMARY | 2024-10-23 17:56 | XMS_ITS | Encounter Summary ---
Author Organization [facility] Address [address] [place] [address] Care Team Providers Care Board Saw Runner Name Role Phone Caitlyn Bowie MD Primary Care Provider +1- [phone] Encounter Details Date Type Department Care Team (Late st Contact Info) Description 04/14/2022 Scanned Document INTERFACE DEFAULT [address] [place] [address] System, Provider Not In Social History Tobacco [...] Office Visit [facility] at [address] - [address] [place] [address] Ronald Mills MD [address] [place] [phone] documented as of this encounter Visit Diagnoses Not on filedocumented in this encounter Additional Health Concerns Assessment Noted Time PHQ-9 Depression Total Score: 2 11/07/19 19 2:06 PM EDT documented as of this encounter Care Teams Board Saw Runner Relationship Specialty Start Date End Date Caitlyn Bowie MD [address] [address] PCP - General Internal Medicine 05/06/21 documented as of this encounter
--- OUTSIDE RECORDS SUMMARY | 2024-10-23 17:56 | XMS_ITS | Encounter Summary ---
Author Organization [facility] and [facility] Address [address] [place] [address] Care Team Providers Care Bright Cutter Name Role Phone Caitlyn Bowie MD Primary Care Provider +1- [phone] Encounter Details Date Type Department Care Team (Late st Contact Info) Description 09/28/2015 Scanned Document [facility] Health Information Management [address] [place] [address] External, Provider Social History Tobacco Use Types [...] Office Visit [facility] at [address] - [address] [place] [address] Ronald Mills MD [address] [place] [phone] documented as of this encounter Procedures Procedure Name Priority Date/Time Associated Diagnosis Comments LAB SCAN Routine 09/09/2015 documented in this encounter Results * Lab Scan (09/09/2015) Blood specimen (specimen) us Provider External LAB BLOOD ORDERABLES Final Res ult [facility] documented in this encounter Visit Diagnoses Not on filedocumented in this encounter Additional Health Concerns Infection Onset Date Last Indicated Resolved Time COVID-19 03/05/2022 03/05/2022 03/15/2022 7:18 PM EDT documented as of this encounter Care Teams Bright Cutter Relationship Specialty Start Date End Date Caitlyn Bowie MD 3400 [facility] 1 [place] [address] PCP - General Internal Medicine 05/06/21 Henry Kelly MD Pulmonary Department 175 [facility], [address] [place] [address] Physician Pulmonary Disease 09/06/17 06/22/20 documented as of this encounter
--- OUTSIDE RECORDS SUMMARY | 2024-10-23 17:56 | XMS_ITS | Encounter Summary ---
Author Organization [facility] and [facility] Address [address] [place] [address] Care Team Providers Care Goods Layer Name Role Phone Caitlyn Bowie MD Primary Care Provider +1- [phone] Encounter Details Date Type Department Care Team (Late st Contact Info) Description 04/25/2022 Scanned Document INTERFACE DEFAULT [address] [place] [phone] System, Provider Not In Social History Tobacco [...] Office Visit [facility] at [address] [place] [address] - [address] [place] [address] Ronald Mills MD [address] [place] [phone] documented as of this encounter Visit Diagnoses Not on filedocumented in this encounter Additional Health Concerns Assessment Noted Time PHQ-9 Depression Total Score: 2 11/07/19 19 2:06 PM EDT documented as of this encounter Care Teams Goods Layer Relationship Specialty Start Date End Date Caitlyn Bowie MD [address] [place] [address] [address] PCP - General Internal Medicine 05/06/21 documented as of this encounter
--- OUTSIDE RECORDS SUMMARY | 2024-10-23 17:56 | XMS_ITS | Encounter Summary ---
Author Organization [facility] and [facility] Address [address] [place] [address] Care Team Providers Care Radial Drill Press Operator Name Role Phone Caitlyn Bowie MD Primary Care Provider +1- [phone] Encounter Details Date Type Department Care Team (Late st Contact Info) Description 04/12/2022 Scanned Document INTERFACE DEFAULT [address] [place] [address] System, Provider Not In Social History Tobacco [...] Office Visit [facility] at [address] - [address] [place] [address] Ronald Mills MD [address] [place] [phone] documented as of this encounter Procedures [...] documented as of this encounter Care Teams Radial Drill Press Operator Relationship Specialty Start Date End Date Caitlyn Bowie MD [address] [address] PCP - General Internal Medicine 05/06/21 documented as of this encounter
--- OUTSIDE RECORDS SUMMARY | 2024-10-23 17:56 | XMS_ITS | Encounter Summary ---
Author Organization [facility] Address [address] [place] [address] Care Team Providers Care Spring Fitter Name Role Phone Caitlyn Bowie MD Primary Care Provider +1- [phone] Encounter Details Date Type Department Care Team (Late st Contact Info) Description 06/23/2022 Scanned Document INTERFACE DEFAULT [address] [place] [address] System, Provider Not In Social History Tobacco [...] Office Visit [facility] at [address] - [address] [place] [address] Ronald Mills MD [address] [place] [phone] documented as of this encounter Visit Diagnoses Not on filedocumented in this encounter Additional Health Concerns Assessment Noted Time PHQ-9 Depression Total Score: 2 11/07/19 19 2:06 PM EDT documented as of this encounter Care Teams Spring Fitter Relationship Specialty Start Date End Date Caitlyn Bowie MD [address] [address] PCP - General Internal Medicine 05/06/21 documented as of this encounter
--- OUTSIDE RECORDS SUMMARY | 2024-10-23 17:56 | XMS_ITS | Encounter Summary ---
Author Organization [facility] and [facility] Address [address] [place] [address] Care Team Providers Care Yarn Bleaching Machine Operator Name Role Phone Caitlyn Bowie MD Primary Care Provider +1- [phone] Encounter Details Date Type Department Care Team (Late st Contact Info) Description 05/17/2023 Scanned Document INTERFACE DEFAULT [address] [place] [address] System, Provider Not In Social History Tobacco [...] Office Visit [facility] at [address] - [address] [place] [address] Ronald Mills MD [address] [place] [phone] documented as of this encounter Procedures [...] as of this encounter Care Teams Yarn Bleaching Machine Operator Relationship Specialty Start Date End Date Caitlyn Bowie MD [address] [address] PCP - General Internal Medicine 05/06/21 documented as of this encounter
--- OUTSIDE RECORDS SUMMARY | 2024-10-23 17:56 | XMS_ITS | Encounter Summary ---
Author Organization [facility] and [facility] Address [address] [place] [address] Care Team Providers Care Binding Cutter Synthetic Cloth Name Role Phone Caitlyn Bowie MD Primary Care Provider +1- [phone] Encounter Details Date Type Department Care Team (Late st Contact Info) Description 09/01/2023 Scanned Document INTERFACE DEFAULT [address] [place] [address] System, Provider Not In Social History Tobacco [...] Office Visit [facility] at [address] - [address] [place] [address] Ronald Mills MD [address] [place] [phone] documented as of this encounter Visit Diagnoses Not on filedocumented in this encounter Additional Health Concerns Assessment Noted Time PHQ-9 Depression Total Score: 2 11/07/19 19 2:06 PM EDT documented as of this encounter Care Teams Binding Cutter Synthetic Cloth Relationship Specialty Start Date End Date Caitlyn Bowie MD [address] [address] PCP - General Internal Medicine 05/06/21 documented as of this encounter
--- OUTSIDE RECORDS SUMMARY | 2024-10-23 17:56 | XMS_ITS | Encounter Summary ---
Author Organization [facility] and [facility] Address [address] [place] [address] Care Team Providers Care Special Education Teaching Assistant Name Role Phone Caitlyn Bowie MD Primary Care Provider +1- [phone] Encounter Details Date Type Department Care Team (Late st Contact Info) Description 04/20/2023 Scanned Document INTERFACE DEFAULT [address] [place] [address] System, Provider Not In Social History [...] Office Visit [facility] at [address] - [address] [place] [address] Ronald Mills MD [address] [place] [phone] documented as of this encounter Procedures [...] documented as of this encounter Care Teams Special Education Teaching Assistant Relationship Specialty Start Date End Date Caitlyn Bowie MD [address] [address] PCP - General Internal Medicine 05/06/21 documented as of this encounter
--- OUTSIDE RECORDS SUMMARY | 2024-10-23 17:56 | XMS_ITS | Encounter Summary ---
Author Organization [facility] and [facility] Address [address] [place] [address] Care Team Providers Care Molder Name Role Phone Caitlyn Bowie MD Primary Care Provider +1- [phone] Encounter Details Date Type Department Care Team (Late Contact Info) Description 12/06/2018 Scanned Document [facility] Health Information Management [address] [place] [phone] External, Provider Social History Tobacco Use Types [...] Office Visit [facility] at [address] - [address] [place] [address] Ronald Mills MD [address] [place] [phone] documented as of this encounter Procedures [...] as of this encounter Care Teams Molder Relationship Specialty Start Date End Date Caitlyn Bowie MD 3400 [facility] 1 [place] [address] PCP - General Internal Medicine 05/06/21 Henry Kelly MD Pulmonary Department 175 [facility], [address] [place] [address] Physician Pulmonary Disease 09/06/17 06/22/20 documented as of this encounter
--- OUTSIDE RECORDS SUMMARY | 2024-10-23 17:56 | XMS_ITS | Encounter Summary ---
Author Organization [facility] and [facility] Address [address] [place] [address] Care Team Providers Care Preparation Room Worker Name Role Phone Caitlyn Bowie MD Primary Care Provider +1- [phone] Encounter Details Date Type Department Care Team (Late st Contact Info) Description 04/16/2022 Scanned Document INTERFACE DEFAULT [address] [place] [address] System, Provider Not In Social History Tobacco [...] Office Visit [facility] at [address] - [address] [place] [address] Ronald Mills MD [address] [place] [phone] documented as of this encounter Procedures [...] documented as of this encounter Care Teams Preparation Room Worker Relationship Specialty Start Date End Date Caitlyn Bowie MD [address] [address] PCP - General Internal Medicine 05/06/21 documented as of this encounter
--- OUTSIDE RECORDS SUMMARY | 2024-10-23 17:56 | XMS_ITS | Encounter Summary ---
Author Organization [facility] and [facility] Address [address] [place] [address] Care Team Providers Care Unified Communications Engineer Name Role Phone Caitlyn Bowie MD Primary Care Provider +1- [phone] Encounter Details Date Type Department Care Team (Late st Contact Info) Description 09/24/2015 Scanned Document [facility] at [address] [place] [address] [address] Kevin Espinoza MD [address] [place] [address] Social History Tobacco Use Types Packs/Day [...] Office Visit [facility] at [address] - [address] [place] [address] Ronald Mills MD [address] [place] [phone] documented as of this encounter Visit Diagnoses Not on filedocumented in this encounter Additional Health Concerns Infection Onset Date Last Indicated Resolved Time COVID-19 03/05/2022 03/05/2022 03/15/2022 7:18 PM EDT documented as of this encounter Care Teams Unified Communications Engineer Relationship Specialty Start Date End Date Caitlyn Bowie MD 3400 [facility] 1 [place] [address] PCP - General Internal Medicine 05/06/21 Henry Kelly MD Pulmonary Department 175 [facility], [address] [place] [address] Physician Pulmonary Disease 09/06/17 06/22/20 documented as of this encounter
--- OUTSIDE RECORDS SUMMARY | 2024-10-23 17:56 | XMS_ITS | Encounter Summary ---
Author Organization [facility] and [facility] Address [address] [place] [address] Care Team Providers Care Junior Systems Administrator Name Role Phone Caitlyn Bowie MD Primary Care Provider +1- [phone] Encounter Details Date Type Department Care Team (Late st Contact Info) Description 01/02/2024 Scanned Document INTERFACE DEFAULT [address] [place] [address] System, Provider Not In Social History Tobacco [...] Office Visit [facility] at [address] - [address] [place] [address] Ronald Mills MD [address] [place] [phone] documented as of this encounter Procedures [...] as of this encounter Care Teams Junior Systems Administrator Relationship Specialty Start Date End Date Caitlyn Bowie MD [address] [address] PCP - General Internal Medicine 05/06/21 documented as of this encounter
--- OUTSIDE RECORDS SUMMARY | 2024-10-23 17:56 | XMS_ITS | Encounter Summary ---
Author Organization [facility] and [facility] Address [address] [place] [address] Care Team Providers Care Baking Powder Mixer Name Role Phone Caitlyn Bowie MD Primary Care Provider +1- [phone] Encounter Details Date Type Department Care Team (Late st Contact Info) Description 04/13/2022 Scanned Document INTERFACE DEFAULT [address] [place] [address] System, Provider Not In Social History Tobacco [...] Office Visit [facility] at [address] - [address] [place] [address] Ronald Mills MD [address] [place] [phone] documented as of this encounter Procedures [...] documented as of this encounter Care Teams Baking Powder Mixer Relationship Specialty Start Date End Date Caitlyn Bowie MD [address] [address] PCP - General Internal Medicine 05/06/21 documented as of this encounter
--- OUTSIDE RECORDS SUMMARY | 2024-10-23 17:56 | XMS_ITS | Encounter Summary ---
Author Organization [facility] Address [address] [place] [address] Care Team Providers Care Sound Assistant Name Role Phone Caitlyn Bowie MD Primary Care Provider +1- [phone] Encounter Details Date Type Department Care Team (Late st Contact Info) Description 03/20/2023 Scanned Document [facility] Radiology [address] [place] [address] Caitlyn Bowie MD [address] [place] [address] Social History Tobacco Use Types Packs/Day Years [...] on filedocumented in this encounter Care Teams Sound Assistant Relationship Specialty Start Date End Date Caitlyn Bowie MD [address] [place] [address] PCP - General Internal Medicine 03/20/23 documented as of this encounter
--- OUTSIDE RECORDS SUMMARY | 2024-10-23 17:56 | XMS_ITS | Encounter Summary ---
Author Organization [facility] and [facility] Address [address] [place] [address] Care Team Providers Care Cop Winder Name Role Phone Caitlyn Bowie MD Primary Care Provider +1- [phone] Encounter Details Date Type Department Care Team (Late Contact Info) Description 10/23/2024 Orders Only Hematology Program at [address] [address] Ronald Mills MD [address] [place] [phone] VTE (venous thromboembolism) (Primary Dx); Antiphospholipid antibody syndrome (HC Code); Elevated homocysteine; Abnormal gamma globulin level; Feeding difficulties, unspecified Social History Tobacco Use Types Packs/Day Years [...] PM EDT Office Visit Hematology Program at [address] [place] [address] Ronald Mills MD [address] [place] [address] Scheduled Orders Name Type Priority Associated Diagnoses Orde r Schedule CBC and differential Lab - Test Panel Order Routine VTE (venous thromboembolism) Antiphospholipid antibody syndrome (HC Code) Elevated homocysteine Abnormal gamma globulin level Expected: 10/23/2024, Expires: 12/23/2025 Comprehensive metabolic panel Lab - Test Panel Order Routine VTE (venous thromboembolism) Antiphospholipid antibody syndrome (HC Code) Elevated homocysteine Abnormal gamma globulin level Expected: 10/23/2024, Expires: 12/23/2025 D-dimer, quantitative Lab Routine VTE (venous thromboembolism) Antiphospholipid antibody syndrome (HC Code) Elevated homocysteine Abnormal gamma globulin level Expected: 10/23/2024, Expires: 12/23/2025 Protime & INR Lab Routine VTE (venous thromboembolism) Antiphospholipid antibody syndrome (HC Code) Elevated homocysteine Abnormal gamma globulin level Expected: 10/23/2024, Expires: 12/23/2025 Iron and TIBC Lab Routine VTE (venous thromboembolism) Antiphospholipid antibody syndrome (HC Code) Elevated homocysteine Abnormal gamma globulin level Expected: 10/23/2024, Expires: 12/23/2025 FERRITIN Lab Routine VTE (venous thromboembolism) Antiphospholipid antibody syndrome (HC Code) Elevated homocysteine Abnormal gamma globulin level Expected: 10/23/2024, Expires: 12/23/2025 Homocysteine ( GH YH) Lab Routine VTE (venous thromboembolism) Antiphospholipid antibody syndrome (HC Code) Elevated homocysteine Abnormal gamma globulin level Expected: 10/23/2024, Expires: 12/23/2025 Methylmalonic acid Lab Routine VTE (venous thromboembolism) Antiphospholipid antibody syndrome (HC Code) Elevated homocysteine Abnormal gamma globulin level Expected: 10/23/2024, Expires: 12/23/2025 ZINC Lab Routine VTE (venous thromboembolism) Antiphospholipid antibody syndrome (HC Code) Elevated homocysteine Abnormal gamma globulin level Feeding difficulties, unspecified Expected: 10/23/2024, Expires: 12/23/2025 Protein electrophoresis, serum (BH LMW YH) Lab Routine VTE (venous thromboembolism) Antiphospholipid antibody syndrome (HC Code) Elevated homocysteine Abnormal gamma globulin level Expected: 10/23/2024, Expires: 12/23/2025 Immunofixation, serum Lab Routine VTE (venous thromboembolism) Antiphospholipid antibody syndrome (HC Code) Elevated homocysteine Abnormal gamma globulin level Expected: 10/23/2024, Expires: 12/23/2025 Free kappa lambda with ratio, serum Lab Routine VTE (venous thromboembolism) Antiphospholipid antibody syndrome (HC Code) Elevated homocysteine Abnormal gamma globulin level Expected: 10/23/2024, Expires: 12/23/2025 documented as of this encounter Visit Diagnoses Diagnosis VTE (venous thromboembolism)- Primary Embolism and thrombosis of unspecified site Antiphospholipid antibody syndrome (HC Code) Primary hypercoagulable state 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
--- OUTSIDE RECORDS SUMMARY | 2024-10-23 17:57 | XMS_ITS | Encounter Summary ---
Author Organization [facility] and [facility] Address [address] [place] [address] Care Team Providers Care Sales Ambassador Name Role Phone Caitlyn Bowie MD Primary Care Provider +1- [phone] Encounter Details Date Type Department Care Team (Late st Contact Info) Description 04/22/2019 Scanned Document [facility] Health Information Management [address] [place] [address] External, Provider Social History Tobacco Use Types [...] Office Visit [facility] at [address] [place] [address] Ronald Mills MD [address] [place] [phone] documented as of this encounter Visit Diagnoses Not on filedocumented in this encounter Additional Health Concerns Infection Onset Date Last Indicated Resolved Time COVID-19 03/05/2022 03/05/2022 03/15/2022 7:18 PM EDT Assessment Noted Time PHQ-9 Depression Total Score: 2 11/07/19 19 2:06 PM EDT documented as of this encounter Care Teams Sales Ambassador Relationship Specialty Start Date End Date Caitlyn Bowie MD [address] [facility] [address] [place] [address] PCP - General Internal Medicine 05/06/21 Henry Kelly MD Pulmonary Department 175 [facility], [address] [place] [address] Physician Pulmonary Disease 09/06/17 06/22/20 documented as of this encounter
--- OUTSIDE RECORDS SUMMARY | 2024-10-23 17:57 | XMS_ITS | Encounter Summary ---
Author Organization [facility] and [facility] Address [address] [place] [address] Care Team Providers Care Detective Captain Name Role Phone Caitlyn Bowie MD Primary Care Provider +1- [phone] Encounter Details Date Type Department Care Team (Late st Contact Info) Description 11/04/2015 Scanned Document [facility] Health Information Management [address] [place] [address] External, Provider Social History Tobacco Use Types [...] Office Visit [facility] at [address] [place] [address] Ronald Mills MD [address] [place] [phone] documented as of this encounter Procedures Procedure Name Priority Date/Time Associated Diagnosis Comments NUC MED/PET RESULT SCAN Routine 11/04/2015 documented in this encounter Results * Nuc Med/PET Result Scan (11/04/2015) us Provider External IMG SCAN REPORTS Edited Result - Final Performing Organization Address City/State/[facility] Co de Phone Number [facility] [place], [place], [facility] documented in this encounter Visit Diagnoses Not on filedocumented in this encounter Additional Health Concerns Infection Onset Date Last Indicated Resolved Time COVID-19 03/05/2022 03/05/2022 03/15/2022 7:18 PM EDT documented as of this encounter Care Teams Detective Captain Relationship Specialty Start Date End Date Caitlyn Bowie MD 34[address] [facility] 1 [place] [address] PCP - General Internal Medicine 05/06/21 Henry Kelly MD Pulmonary Department 175 [facility], [address] [place] [address] Physician Pulmonary Disease 09/06/17 06/22/20 documented as of this encounter
--- OUTSIDE RECORDS SUMMARY | 2024-10-23 17:57 | XMS_ITS | Encounter Summary ---
Author Organization [facility] and [facility] Address [address] [place] [address] Care Team Providers Care System Support Developer Name Role Phone Caitlyn Bowie MD Primary Care Provider +1- [phone] Encounter Details Date Type Department Care Team (Late Contact Info) Description 12/28/2018 Scanned Document [facility] Health Information Management [address] [place] [address] External, Provider Social History Tobacco Use Types [...] Office Visit [facility] at [address] [place] [address] Ronald Mills MD [address] [place] [phone] documented as of this encounter Procedures [...] as of this encounter Care Teams System Support Developer Relationship Specialty Start Date End Date Caitlyn Bowie MD [address] [facility] [address] 1 [place] [address] PCP - General Internal Medicine 05/06/21 Henry Kelly MD Pulmonary Department 175 [facility], [address] [place] [address] Physician Pulmonary Disease 09/06/17 06/22/20 documented as of this encounter
--- OUTSIDE RECORDS SUMMARY | 2024-10-23 17:57 | XMS_ITS | Encounter Summary ---
Author Organization [facility] and [facility] Address [address] [place] [address] Care Team Providers Care Rubber Cutter And Shape Carver Name Role Phone Caitlyn Bowie MD Primary Care Provider +1- [phone] Encounter Details Date Type Department Care Team (Late st Contact Info) Description 01/28/2019 Scanned Document [facility] Health Information Management [address] [place] [address] External, Provider Social History Tobacco Use Types [...] Office Visit [facility] at [address] [place] [address] Ronald Mills MD [address] [place] [phone] documented as of this encounter Visit Diagnoses Not on filedocumented in this encounter Additional Health Concerns Infection Onset Date Last Indicated Resolved Time COVID-19 03/05/2022 03/05/2022 03/15/2022 7:18 PM EDT Assessment Noted Time PHQ-9 Depression Total Score: 2 11/07/19 19 2:06 PM EDT documented as of this encounter Care Teams Rubber Cutter And Shape Carver Relationship Specialty Start Date End Date Caitlyn Bowie MD [address] [facility] [address] 1 [place] [address] PCP - General Internal Medicine 05/06/21 Henry Kelly MD Pulmonary Department 175 [facility], [address] [place] [address] Physician Pulmonary Disease 09/06/17 06/22/20 documented as of this encounter
--- OUTSIDE RECORDS SUMMARY | 2024-10-23 17:57 | XMS_ITS | Encounter Summary ---
Author Organization [facility] and [facility] Address [address] [place] [phone] Care Team Providers Care Loom Cleaner Name Role Phone Caitlyn Bowie MD Primary Care Provider +1- [phone] Encounter Details Date Type Department Care Team (Late st Contact Info) Description 12/16/2016 Scanned Document [facility] Health Information Management [address] [place] [address] External, Provider Social History Tobacco Use Types [...] Office Visit [facility] at [address] [place] [address] Ronald Mills MD [address] [place] [phone] documented as of this encounter Procedures [...] as of this encounter Care Teams Loom Cleaner Relationship Specialty Start Date End Date Caitlyn Bowie MD [address] [facility] 1 [place] [address] PCP - General Internal Medicine 05/06/21 Henry Kelly MD Pulmonary Department 175 [facility], [address] [place] [address] Physician Pulmonary Disease 09/06/17 06/22/20 documented as of this encounter
--- OUTSIDE RECORDS SUMMARY | 2024-10-23 17:57 | XMS_ITS | Encounter Summary ---
Author Organization [facility] and [facility] Address [address] [place] [address] Care Team Providers Care Marketing Technology Specialist Name Role Phone Caitlyn Bowie MD Primary Care Provider +1- [phone] Encounter Details Date Type Department Care Team (Late st Contact Info) Description 08/08/2024 Scanned Document [facility] [address] [place] [phone] System, Provider Not In Social History Tobacco [...] Office Visit [facility] at [address] [place] [address] Ronald Mills MD [address] [place] [phone] documented as of this encounter Procedures [...] as of this encounter Care Teams Marketing Technology Specialist Relationship Specialty Start Date End Date Caitlyn Bowie MD [address] [address] PCP - General Internal Medicine 05/06/21 documented as of this encounter
--- OUTSIDE RECORDS SUMMARY | 2024-10-23 17:57 | XMS_ITS | Encounter Summary ---
Author Organization [facility] and [facility] Address [address] [place] [phone] Care Team Providers Care Television Producer Name Role Phone Caitlyn Bowie MD Primary Care Provider +1- [phone] Encounter Details Date Type Department Care Team (Late st Contact Info) Description 01/02/2019 Scanned Document [facility] Health Information Management [address] [place] [address] External, Provider Social History Tobacco Use Types [...] Office Visit [facility] at [address] [place] [address] Ronald Mills MD [address] [place] [phone] documented as of this encounter Procedures [...] as of this encounter Care Teams Television Producer Relationship Specialty Start Date End Date Caitlyn Bowie MD 3400 [facility] 1 [place] [address] PCP - General Internal Medicine 05/06/21 Henry Kelly MD Pulmonary Department 175 [facility], [address] [place] [address] Physician Pulmonary Disease 09/06/17 06/22/20 documented as of this encounter
--- OUTSIDE RECORDS SUMMARY | 2024-10-23 17:57 | XMS_ITS | Encounter Summary ---
Author Organization [facility] Address [address] [place] [address] Care Team Providers Care State Wildlife Officer Name Role Phone Caitlyn Bowie MD Primary Care Provider +1- [phone] Encounter Details Date Type Department Care Team (Late st Contact Info) Description 03/12/2019 Scanned Document [facility] Health Information Management [address] [place] [address] External, Provider Social History Tobacco Use Types [...] Office Visit [facility] at [address] [place] [address] [place] [address] Ronald Mills MD [address] [place] [phone] documented as of this encounter Procedures [...] documented as of this encounter Care Teams State Wildlife Officer Relationship Specialty Start Date End Date Caitlyn Bowie MD 34[address] [facility] [address] 1 [place] [address] PCP - General Internal Medicine 05/06/21 Henry Kelly MD Pulmonary Department 175 [facility], [address] [place] [address] Physician Pulmonary Disease 09/06/17 06/22/20 documented as of this encounter
--- OUTSIDE RECORDS SUMMARY | 2024-10-23 17:57 | XMS_ITS | Clinical Summary ---
Author Organization [facility] Address [address] [place] [address] Phone Care Team Providers Care Buckram Sewer Name Role Phone Caitlyn Bowie MD Primary Care Provider +1- [phone] Encounters Date Type Department Care Team Description 10/10/2024 Documentation Only [facility] [address] [place] [address] Ron Taylor MA 10/01/2024 Documentation Only [facility] [address] [place] [address] Ron Taylor MA 09/25/2024 Telephone [facility] [address] [place] [address] Ron Taylor MA from Last [...] Visit [facility] [address] [place] [address] Rubén Ashraf MD [address] [place] [address] [place] [phone] Health Maintenance Due Date Last Done Comments Influenza Vaccine (Season Ended) 2025 04/27/2020, 04/22/2019, 04/18/2016 Pneumococcal Vaccine: 50+ Years Completed 08/31/2021, 03/25/2016, 09/17/2015, Additional history exists Hepatitis B Vaccine Aged Out No longe r eligible based on patient's age to complete this topic Insurance Medicare [facility] Care Teams Buckram Sewer Relationship Specialty Start Date End Date Caitlyn Bowie MD [facility]0 [place], [place] PCP - General Internal Medicine 09/24/24
--- OUTSIDE RECORDS SUMMARY | 2024-10-23 17:57 | XMS_ITS | Encounter Summary ---
Author Organization [facility] Address [address] [place] [address] Care Team Providers Care Spring Tester Name Role Phone Caitlyn Bowie MD Primary Care Provider +1- [phone] Encounter Details Date Type Department Care Team (Late Contact Info) Description 01/26/2019 Scanned Document [facility] Health Information Management [address] [place] [address] External, Provider Social History Tobacco Use Types [...] EDT Office Visit [facility] at [address] [place] [address] Ronald Mills MD [address] [place] [phone] documented as of this encounter Procedures [...] as of this encounter Care Teams Spring Tester Relationship Specialty Start Date End Date Caitlyn Bowie MD [address] [facility] 1 [place] [address] PCP - General Internal Medicine 05/06/21 Henry Kelly MD Pulmonary Department 175 [facility], [address] [place] [address] Physician Pulmonary Disease 09/06/17 06/22/20 documented as of this encounter
--- OUTSIDE RECORDS SUMMARY | 2024-10-23 17:57 | XMS_ITS | Encounter Summary ---
Author Organization [facility] Address [address] [place] [phone] Care Team Providers Care Public Health Dietitian Name Role Phone Caitlyn Bowie MD Primary Care Provider +1- [phone] Encounter Details Date Type Department Care Team (Late Contact Info) Description 12/27/2018 Scanned Document [facility] Health Information Management [address] [place] [address] External, Provider Social History Tobacco Use Types [...] Office Visit [facility] at [address] [place] [address] Ronald Mills MD [address] [place] [phone] documented as of this encounter Procedures [...] as of this encounter Care Teams Public Health Dietitian Relationship Specialty Start Date End Date Caitlyn Bowie MD 3400 [facility] 1 [place] [address] PCP - General Internal Medicine 05/06/21 Henry Kelly MD Pulmonary Department 175 [facility], [address] [place] [address] Physician Pulmonary Disease 09/06/17 06/22/20 documented as of this encounter
--- OUTSIDE RECORDS SUMMARY | 2024-10-23 17:57 | XMS_ITS | Encounter Summary ---
Author Organization [facility] Address [address] [place] [address] Care Team Providers Care Automatic Pad Making Machine Operator Name Role Phone Caitlyn Bowie MD Primary Care Provider +1- [phone] Encounter Details Date Type Department Care Team (Late st Contact Info) Description 10/10/2016 Scanned Document [facility] Health Information Management [address] [place] [address] External, Provider Social History Tobacco Use Types [...] Office Visit [facility] at [address] [place] [address] Ronald Mills MD [address] [place] [phone] documented as of this encounter Visit Diagnoses Not on filedocumented in this encounter Additional Health Concerns Infection Onset Date Last Indicated Resolved Time COVID-19 03/05/2022 03/05/2022 03/15/2022 7:18 PM EDT documented as of this encounter Care Teams Automatic Pad Making Machine Operator Relationship Specialty Start Date End Date Caitlyn Bowie MD 3400 [facility] 1 [place] [address] PCP - General Internal Medicine 05/06/21 Henry Kelly MD Pulmonary Department 175 [facility], [address] [place] [address] Physician Pulmonary Disease 09/06/17 06/22/20 documented as of this encounter
--- OUTSIDE RECORDS SUMMARY | 2024-10-23 17:57 | XMS_ITS | Encounter Summary ---
Author Organization [facility] Address [address] [place] [phone] Care Team Providers Care Staff Editor Name Role Phone Caitlyn Bowie MD Primary Care Provider +1- [phone] Encounter Details Date Type Department Care Team (Late st Contact Info) Description 02/06/2019 Scanned Document [facility] Health Information Management [address] [place] [address] External, Provider Social History Tobacco Use Types [...] Office Visit [facility] at [address] [place] [address] [place] [address] Ronald Mills MD [address] [place] [phone] documented as of this encounter Procedures [...] as of this encounter Care Teams Staff Editor Relationship Specialty Start Date End Date Caitlyn Bowie MD [address] [facility] [address] 1 [place] [address] PCP - General Internal Medicine 05/06/21 Henry Kelly MD Pulmonary Department 175 [facility], [address] [place] [address] Physician Pulmonary Disease 09/06/17 06/22/20 documented as of this encounter
--- OUTSIDE RECORDS SUMMARY | 2024-10-23 17:57 | XMS_ITS | Encounter Summary ---
Author Organization [facility] Address [address] [place] [address] Care Team Providers Care Data Services Developer Name Role Phone Caitlyn Bowie MD Primary Care Provider +1- [phone] Encounter Details Date Type Department Care Team (Late st Contact Info) Description 06/17/2016 Scanned Document [facility] Health Information Management [address] [place] [address] External, Provider Social History Tobacco Use Types [...] Office Visit [facility] at [address] [place] [address] Ronald Mills MD [address] [place] [phone] documented as of this encounter Visit Diagnoses Not on filedocumented in this encounter Additional Health Concerns Infection Onset Date Last Indicated Resolved Time COVID-19 03/05/2022 03/05/2022 03/15/2022 7:18 PM EDT documented as of this encounter Care Teams Data Services Developer Relationship Specialty Start Date End Date Caitlyn Bowie MD 3400 [facility] 1 [place] [address] PCP - General Internal Medicine 05/06/21 Henry Kelly MD Pulmonary Department 175 [facility], [address] [place] [address] Physician Pulmonary Disease 09/06/17 06/22/20 documented as of this encounter
--- OUTSIDE RECORDS SUMMARY | 2024-10-23 17:57 | XMS_ITS | Encounter Summary ---
Author Organization [facility] and [facility] Address [address] [place] [address] Care Team Providers Care Solar Mechanical Engineer Name Role Phone Caitlyn Bowie MD Primary Care Provider +1- [phone] Encounter Details Date Type Department Care Team (Late st Contact Info) Description 12/14/2016 Scanned Document [facility] Health Information Management [address] [place] [address] External, Provider Social History Tobacco Use Types [...] [facility] Visit [facility] at [address] [place] [address] Ronald Mills MD [address] [place] [phone] documented as of this encounter Visit Diagnoses Not on filedocumented in this encounter Additional Health Concerns Infection Onset Date Last Indicated Resolved Time COVID-19 03/05/2022 03/05/2022 03/15/2022 7:18 PM EDT documented as of this encounter Care Teams Solar Mechanical Engineer Relationship Specialty Start Date End Date Caitlyn Bowie MD 3400 [facility] 1 [place] [address] PCP - General Internal Medicine 05/06/21 Henry Kelly MD Pulmonary Department 175 [facility], [address] [place] [address] Physician Pulmonary Disease 09/06/17 06/22/20 documented as of this encounter
--- OUTSIDE RECORDS SUMMARY | 2024-10-23 17:57 | XMS_ITS | Encounter Summary ---
Author Organization [facility] and [facility] Address [address] [place] [address] Care Team Providers Care Tin Assorter Name Role Phone Caitlyn Bowie MD Primary Care Provider +1- [phone] Encounter Details Date Type Department Care Team (Late st Contact Info) Description 04/08/2024 Scanned Document INTERFACE DEFAULT [address] [place] [address] System, Provider Not In Social History Tobacco [...] Office Visit [facility] at [address] [place] [address] Ronald Mills MD [address] [place] [phone] documented as of this encounter Procedures [...] as of this encounter Care Teams Tin Assorter Relationship Specialty Start Date End Date Caitlyn Bowie MD [address] [address] PCP - General Internal Medicine 05/06/21 documented as of this encounter
--- OUTSIDE RECORDS SUMMARY | 2024-10-23 17:57 | XMS_ITS | Encounter Summary ---
Author Organization [facility] and [facility] Address [address] [place] [address] Care Team Providers Care Preschool Paraprofessional Name Role Phone Caitlyn Bowie MD Primary Care Provider +1- [phone] Encounter Details Date Type Department Care Team (Late st Contact Info) Description 07/27/2016 Scanned Document [facility] Program at [address] [place] [address] Suzy Kong MD [address] [place] [phone] Social History Tobacco Use Types Packs/Day [...] EDT Office Visit Hematology Program at [address] - [address] [place], [place] [address] Ronald Mills MD [address] [phone] documented as of this encounter Visit Diagnoses Not on filedocumented in this encounter Additional Health Concerns Infection Onset Date Last Indicated Resolved Time COVID-19 03/05/2022 03/05/2022 03/15/2022 7:18 PM EDT documented as of this encounter Care Teams Preschool Paraprofessional Relationship Specialty Start Date End Date Caitlyn Bowie MD 3400 [facility] [address] 1 [place] [address] PCP - General Internal Medicine 05/06/21 Henry Kelly MD Pulmonary Department 175 [facility], [address] [place] [address] Physician Pulmonary Disease 09/06/17 06/22/20 documented as of this encounter
--- OUTSIDE RECORDS SUMMARY | 2024-10-23 17:57 | XMS_ITS | Encounter Summary ---
Author Organization [facility] and [facility] Address [address] [place] [address] Care Team Providers Care Tree Planter Name Role Phone Caitlyn Bowie MD Primary Care Provider +1- [phone] Encounter Details Date Type Department Care Team (Late st Contact Info) Description 12/03/2015 Scanned Document [facility] Health Information Management [address] [place] [address] External, Provider Social History Tobacco Use Types [...] Office Visit [facility] at [address] [place] [address] Ronald Mills MD [address] [place] [phone] documented as of this encounter Procedures Procedure Name Priority Date/Time Associated Diagnosis Comments LAB SCAN Routine 12/03/2015 documented in this encounter Results * Lab Scan (12/03/2015) Blood specimen (specimen) us Provider External LAB BLOOD ORDERABLES Edited Re germánt - Final [facility] [place], [place], [facility] documented in this encounter Visit Diagnoses Not on filedocumented in this encounter Additional Health Concerns Infection Onset Date Last Indicated Resolved Time COVID-19 03/05/2022 03/05/2022 03/15/2022 7:18 PM EDT documented as of this encounter Care Teams Tree Planter Relationship Specialty Start Date End Date Caitlyn Bowie MD 3400 [facility] 1 [place] [address] PCP - General Internal Medicine 05/06/21 Henry Kelly MD Pulmonary Department 175 [facility], [address] [place] [address] Physician Pulmonary Disease 09/06/17 06/22/20 documented as of this encounter
--- OUTSIDE RECORDS SUMMARY | 2024-10-23 17:57 | XMS_ITS ---
Author Organization [employer] [facility] Address [address] [address] Care Team Providers Care Pelletizer Name Role Phone EVELIN RAMSAY Primary Care Provider Yenny Hou Unavailable [phone] REASON FOR VISIT [facility] disease dept Encounters Encounter Location Date Provider Diagnosis [facility] [address] [address] 06/11/2024 Yenny Elizalde Plan Of Treatment No Information Progress Notes * ONOFRE WATSON:1945 (79 yo F)Acc No.[id number]:06/11/2024 Patient:?CINDA WATSON :1945???Age:79 Y???Sex:Female Address:[address] [place] [address], [address] * true * Date:? Generated for Arely paige/Sebastian/eTransmitting on:?10/23/2024 05:56 PM EDT
--- OUTSIDE RECORDS SUMMARY | 2024-10-23 17:57 | XMS_ITS | Encounter Summary ---
Author Organization [facility] and [facility] Address [address] [place] [address] Care Team Providers Care Php Software Engineer Name Role Phone Caitlyn Bowie MD Primary Care Provider +1- [phone] Encounter Details Date Type Department Care Team (Late st Contact Info) Description 12/01/2015 Scanned Document [facility] Health Information Management [address] [place] [address] External, Provider Social History Tobacco Use Types [...] Office Visit [facility] at [address] [place] [address] Ronald Mills MD [address] [place] [phone] documented as of this encounter Procedures Procedure Name Priority Date/Time Associated Diagnosis Comments CT RESULT SCAN Routine 12/01/2015 documented in this encounter Results * CT Result Scan (12/01/2015) us Provider External IMG SCAN REPORTS Edited Result - Final [facility] [place], [place], [facility] documented in this encounter Visit Diagnoses Not on filedocumented in this encounter Additional Health Concerns Infection Onset Date Last Indicated Resolved Time COVID-19 03/05/2022 03/05/2022 03/15/2022 7:18 PM EDT documented as of this encounter Care Teams Php Software Engineer Relationship Specialty Start Date End Date Caitlyn Bowie MD 3400 [facility] [address] [address] PCP - General Internal Medicine 05/06/21 Henry Kelly MD Pulmonary Department 175 [facility], [address] [address] Physician Pulmonary Disease 09/06/17 06/22/20 documented as of this encounter
--- OUTSIDE RECORDS SUMMARY | 2024-10-23 17:57 | XMS_ITS | Encounter Summary ---
Author Organization [facility] and [facility] Address [address] [place] [address] Care Team Providers Care Filling And Stapling Machine Operator Name Role Phone Caitlyn Bowie MD Primary Care Provider +1- [phone] Encounter Details Date Type Department Care Team (Late st Contact Info) Description 01/13/2019 Scanned Document [facility] Health Information Management [address] [place] [address] External, Provider Social History Tobacco Use Types [...] Office Visit [facility] at [address] [place] [address] Ronald Mills MD [address] [place] [phone] documented as of this encounter Procedures [...] documented as of this encounter Care Teams Filling And Stapling Machine Operator Relationship Specialty Start Date End Date Caitlyn Bowie MD 3400 [facility] 1 [place] [address] PCP - General Internal Medicine 05/06/21 Henry Kelly MD Pulmonary Department 175 [facility], [address] [place] [address] Physician Pulmonary Disease 09/06/17 06/22/20 documented as of this encounter
--- OUTSIDE RECORDS SUMMARY | 2024-10-23 17:57 | XMS_ITS | Encounter Summary ---
Author Organization [facility] and [facility] Address [address] [place] [address] Care Team Providers Care Travel Clerk Name Role Phone Caitlyn Bowie MD Primary Care Provider +1- [phone] Encounter Details Date Type Department Care Team (Late st Contact Info) Description 04/23/2024 Scanned Document INTERFACE DEFAULT [address] [place] [address] System, Provider Not In Social History Tobacco [...] Office Visit [facility] at [address] [place] [address] Ronald Mills MD [address] [place] [phone] documented as of this encounter Procedures [...] as of this encounter Care Teams Travel Clerk Relationship Specialty Start Date End Date Caitlyn Bowie MD [address] [address] PCP - General Internal Medicine 05/06/21 documented as of this encounter
--- OUTSIDE RECORDS SUMMARY | 2024-10-23 17:57 | XMS_ITS | Encounter Summary ---
Author Organization [facility] and [facility] Address [address] [place] [address] Care Team Providers Care Traveling Clerk Name Role Phone Caitlyn Bowie MD Primary Care Provider +1- [phone] Encounter Details Date Type Department Care Team (Late st Contact Info) Description 11/03/2015 Scanned Document [facility] Health Information Management [address] [place] [address] External, Provider Social History Tobacco Use Types [...] Office Visit [facility] at [address] [place] [address] Ronald Mills MD [address] [place] [phone] documented as of this encounter Procedures Procedure Name Priority Date/Time Associated Diagnosis Comments US RESULT SCAN Routine 11/03/2015 documented in this encounter Results * US Result Scan (11/03/2015) us Provider External IMG SCAN REPORTS Edited Result - Final [facility] [place], [place], [facility] documented in this encounter Visit Diagnoses Not on filedocumented in this encounter Additional Health Concerns Infection Onset Date Last Indicated Resolved Time COVID-19 03/05/2022 03/05/2022 03/15/2022 7:18 PM EDT documented as of this encounter Care Teams Traveling Clerk Relationship Specialty Start Date End Date Caitlyn Bowie MD 3400 [facility] Max 1 [place] [address] PCP - General Internal Medicine 05/06/21 Henry Kelly MD Pulmonary Department 175 [facility], [address] [place] [address] Physician Pulmonary Disease 09/06/17 06/22/20 documented as of this encounter
--- OUTSIDE RECORDS SUMMARY | 2024-10-23 17:57 | XMS_ITS | Encounter Summary ---
Author Organization [facility] and [facility] Address [address] [place] [address] Care Team Providers Care Shellfish Checker Name Role Phone Caitlyn Bowie MD Primary Care Provider +1- [phone] Encounter Details Date Type Department Care Team (Late st Contact Info) Description 04/19/2024 Scanned Document INTERFACE DEFAULT [address] [place] [address] System, Provider Not In Social History Tobacco [...] Office Visit [facility] at [address] [place] [address] Ronald Mills MD [address] [place] [phone] documented as of this encounter Procedures [...] documented as of this encounter Care Teams Shellfish Checker Relationship Specialty Start Date End Date Caitlyn Bowie MD [address] [address] PCP - General Internal Medicine 05/06/21 documented as of this encounter
--- OUTSIDE RECORDS SUMMARY | 2024-10-23 17:57 | XMS_ITS | Encounter Summary ---
Author Organization [facility] Address [address] [place] [address] Care Team Providers Care General Warehouse Worker Name Role Phone Caitlyn Bowie MD Primary Care Provider +1- [phone] Encounter Details Date Type Department Care Team (Late st Contact Info) Description 01/08/2019 Scanned Document [facility] Health Information Management [address] [place] [address] External, Provider Social History Tobacco Use Types [...] Office Visit [facility] at [address] [place] [address] Ronald Mills MD [address] [place] [phone] documented as of this encounter Procedures [...] as of this encounter Care Teams General Warehouse Worker Relationship Specialty Start Date End Date Caitlyn Bowie MD 3400 [facility] Max 1 [place] [address] PCP - General Internal Medicine 05/06/21 Henry Kelly MD Pulmonary Department 175 [facility], [address] [place] [address] Physician Pulmonary Disease 09/06/17 06/22/20 documented as of this encounter
--- OUTSIDE RECORDS SUMMARY | 2024-10-23 17:57 | XMS_ITS | Encounter Summary ---
Author Organization [facility] Address [address] [place] [address] Care Team Providers Care Oil Boiler Name Role Phone Caitlyn Bowie MD Primary Care Provider +1- [phone] Encounter Details Date Type Department Care Team (Late st Contact Info) Description 09/23/2024 Scanned Document INTERFACE DEFAULT [address] [place] [address] System, Provider Not In Social History Tobacco [...] Office Visit [facility] at [address] - [address] [place] [address] Ronald Mills MD [address] [place] [phone] documented as of this encounter Procedures [...] as of this encounter Care Teams Oil Boiler Relationship Specialty Start Date End Date Caitlyn Bowie MD [address] [address] PCP - General Internal Medicine 05/06/21 documented as of this encounter
--- OUTSIDE RECORDS SUMMARY | 2024-10-23 17:57 | XMS_ITS | Encounter Summary ---
Author Organization [facility] Address [address] [place] [address] Care Team Providers Care Device Sales Consultant Name Role Phone Caitlyn Bowie MD Primary Care Provider +1- [phone] Encounter Details Date Type Department Care Team (Late st Contact Info) Description 04/11/2019 Scanned Document [facility] Health Information Management [address] [place] [address] External, Provider Social History Tobacco Use Types [...] Office Visit [facility] at [address] [place] [address] Ronald Mills MD [address] [place] [phone] documented as of this encounter Procedures [...] documented as of this encounter Care Teams Device Sales Consultant Relationship Specialty Start Date End Date Caitlyn Bowie MD 3400 [facility] 1 [place] [address] PCP - General Internal Medicine 05/06/21 Henry Kelly MD Pulmonary Department 175 [facility], [address] [place] [address] Physician Pulmonary Disease 09/06/17 06/22/20 documented as of this encounter
--- OUTSIDE RECORDS SUMMARY | 2024-10-23 17:57 | XMS_ITS | Encounter Summary ---
Author Organization [facility] and [facility] Address [address] [place] [address] Care Team Providers Care Director Quality Assurance Name Role Phone Caitlyn Bowie MD Primary Care Provider +1- [phone] Reason for Referral * Imaging (Routine) - Closed Specialty Diagnoses / Procedures Referred By Contac t Referred To Contact Procedures NM Lung Ventilation Perfusion ([facility]) External, Provider Referral ID Status Reason Start Date Expiration Date Visits Re quested Visits Authorized [id number] Closed 08/22/2016 08/22/2017 4 4 Encounter Details Date Type Department Care Team (Late st Contact Info) Description 08/22/2016 Scanned Document Thoracic Oncology Program at [facility] 35 [facility] [place] [address] External, Provider Social History Tobacco Use Types [...] PM EDT Office Visit Hematology Program at [facility] 20 [facility] - [address] [place] [address] Ronald Mills MD [address] [place] [address] [place] [address] documented as of this encounter Procedures Procedure Name Priority Date/Time Associated Diagnosis Comments XRAY RESULT SCAN Routine 07/27/2016 CT RESULT SCAN Routine 07/27/2016 CT RESULT SCAN Routine 07/27/2016 CARDIAC EKG RESULT SCAN Routine 07/27/2016 LAB SCAN Routine 07/27/2016 NM LUNG VENTILATION PERFUSIO N ([facility]) Routine 07/27/2016 documented in this encounter Results * Xray Result Scan (07/27/2016) us Provider External IMG SCAN REPORTS Final Result Performing Organization Address [facility] Co de Phone Number [facility] * CT Result Scan (07/27/2016) us Provider External IMG SCAN REPORTS Final Result Performing Organization Address [facility] Co de Phone Number [facility] * Cardiac EKG Result Scan (07/27/2016) us Provider External CV CARDIAC REPORT (CVR) Final Result Performing Organization Address [facility] Co de Phone Number [facility] [place], [place], [facility] * CT Result Scan (07/27/2016) us Provider External IMG SCAN REPORTS Final Result Performing Organization Address [facility] Co de Phone Number [facility] * Lab Scan (07/27/2016) Blood specimen (specimen) us Provider External LAB BLOOD ORDERABLES Final Res ult Performing Organization Address [facility] Co de Phone Number [place], [place], [place] * NM Lung Ventilation Perfusion ([facility]) (07/27/2016) Anatomical Region Laterality Modality Chest, Lung Nuclear Medicine us Provider External IMG NM ORDERABLES Final Result documented in this encounter Visit Diagnoses Not on filedocumented in this encounter Additional Health Concerns Infection Onset Date Last Indicated Resolved Time COVID-19 03/05/2022 03/05/2022 03/15/2022 7:18 PM EDT documented as of this encounter Care Teams Director Quality Assurance Relationship Specialty Start Date End Date Caitlyn Bowie MD 3400 [facility] 1 [place] [address] PCP - General Internal Medicine 05/06/21 Henry Kelly MD Pulmonary Department 175 [facility], [address] [place] [address] Physician Pulmonary Disease 09/06/17 06/22/20 documented as of this encounter
--- OUTSIDE RECORDS SUMMARY | 2024-10-23 17:57 | XMS_ITS | Encounter Summary ---
Author Organization [facility] Address [address] [place] [address] Care Team Providers Care Automobile Damage Appraiser Name Role Phone Caitlyn Bowie MD Primary Care Provider +1- [phone] Encounter Details Date Type Department Care Team (Late st Contact Info) Description 07/27/2016 Scanned Document Thoracic Oncology Program at [address] [place] [address] Suzy Kong MD [address] [place] [phone] Social History Tobacco Use Types Packs/Day [...] PM EDT Office Visit Hematology Program at [address] [place], [place] [address] Ronald Mills MD [address] [phone] documented as of this encounter Visit Diagnoses Not on filedocumented in this encounter Additional Health Concerns Infection Onset Date Last Indicated Resolved Time COVID-19 03/05/2022 03/05/2022 03/15/2022 7:18 PM EDT documented as of this encounter Care Teams Automobile Damage Appraiser Relationship Specialty Start Date End Date Caitlyn Bowie MD 3400 [facility] [address] 1 [place] [address] PCP - General Internal Medicine 05/06/21 Henry Kelly MD Pulmonary Department 175 [facility], [address] [place] [address] Physician Pulmonary Disease 09/06/17 06/22/20 documented as of this encounter
--- OUTSIDE RECORDS SUMMARY | 2024-10-23 17:57 | XMS_ITS | Encounter Summary ---
Author Organization [facility] Address [address] [place] [address] Care Team Providers Care Manager Operations Name Role Phone Caitlyn Bowie MD Primary Care Provider +1- [phone] Encounter Details Date Type Department Care Team (Late Contact Info) Description 01/09/2019 Scanned Document [facility] Health Information Management [address] [place] [address] External, Provider Social History Tobacco Use Types [...] Office Visit [facility] at [address] [place] [address] Ronald Mills MD [address] [place] [phone] documented as of this encounter Procedures [...] as of this encounter Care Teams Manager Operations Relationship Specialty Start Date End Date Caitlyn Bowie MD 3400 [facility] 1 [place] [address] PCP - General Internal Medicine 05/06/21 Henry Kelly MD Pulmonary Department 175 [facility], [address] [place] [address] Physician Pulmonary Disease 09/06/17 06/22/20 documented as of this encounter
--- OUTSIDE RECORDS SUMMARY | 2024-10-23 17:57 | XMS_ITS | Encounter Summary ---
Author Organization [facility] Address [address] [place] [address] Phone Care Team Providers Care Jewelry Manager Name Role Phone Caitlyn Bowie MD Primary Care Provider +1- [phone] Encounter Details Date Type Department Care Team (Late st Contact Info) Description 10/01/2024 Documentation Only [facility] [address] [place] [address] [place], [place] [address] [place] [address] Social History Tobacco Use Types [...] Visit [facility] [address] [place] [address] Rubén Ashraf MD [address] [place] [address] [place] [address] documented as of this encounter Visit Diagnoses Not on filedocumented in this encounter Care Teams Jewelry Manager Relationship Specialty Start Date End Date Caitlyn Bowie MD [address] [place], [place] PCP - General Internal Medicine 09/24/24 documented as of this encounter
--- OUTSIDE RECORDS SUMMARY | 2024-10-23 17:57 | XMS_ITS | Encounter Summary ---
Author Organization [facility] and [facility] Address [address] [place] [address] Care Team Providers Care Disability Program Navigator Name Role Phone Caitlyn Bowie MD Primary Care Provider +1- [phone] Encounter Details Date Type Department Care Team (Late st Contact Info) Description 04/04/2016 Scanned Document [facility] Health Information Management [address] [place] [address] External, Provider Social History Tobacco Use Types [...] [facility] Visit [facility] at [address] [place] [address] Ronald Mills MD [address] [place] [phone] documented as of this encounter Procedures Procedure Name Priority Date/Time Associated Diagnosis Comments LAB SCAN Routine 04/04/2016 documented in this encounter Results * Lab Scan (04/04/2016) Blood specimen (specimen) us Provider External LAB BLOOD ORDERABLES Final Res ult [facility] documented in this encounter Visit Diagnoses Not on filedocumented in this encounter Additional Health Concerns Infection Onset Date Last Indicated Resolved Time COVID-19 03/05/2022 03/05/2022 03/15/2022 7:18 PM EDT documented as of this encounter Care Teams Disability Program Navigator Relationship Specialty Start Date End Date Caitlyn Bowie MD 3400 [facility] 1 [place] [address] PCP - General Internal Medicine 05/06/21 Henry Kelly MD Pulmonary Department 175 [facility], [address] [place] [address] Physician Pulmonary Disease 09/06/17 06/22/20 documented as of this encounter
--- OUTSIDE RECORDS SUMMARY | 2024-10-23 17:57 | XMS_ITS | Encounter Summary ---
Author Organization [facility] and [facility] Address [address] [place] [address] Care Team Providers Care Steel Sash Erector Name Role Phone Caitlyn Bowie MD Primary Care Provider +1- [phone] Encounter Details Date Type Department Care Team (Late st Contact Info) Description 09/15/2024 Scanned Document INTERFACE DEFAULT [address] [place] [address] System, Provider Not In Social History Tobacco [...] Office Visit [facility] at [address] [place] [address] Ronald Mills MD [address] [place] [phone] documented as of this encounter Procedures [...] as of this encounter Care Teams Steel Sash Erector Relationship Specialty Start Date End Date Caitlyn Bowie MD [address] [address] PCP - General Internal Medicine 05/06/21 documented as of this encounter
--- OUTSIDE RECORDS SUMMARY | 2024-10-23 17:57 | XMS_ITS | Encounter Summary ---
Author Organization [facility] and [facility] Address [address] [place] [address] Care Team Providers Care Cutting Tool Sharpener Name Role Phone Caitlyn Bowie MD Primary Care Provider +1- [phone] Encounter Details Date Type Department Care Team (Late Contact Info) Description 01/30/2019 Scanned Document [facility] Health Information Management [address] [place] [address] External, Provider Social History Tobacco Use Types [...] Office Visit [facility] at [address] [place] [address] Ronald Mills MD [address] [place] [phone] documented as of this encounter Procedures [...] as of this encounter Care Teams Cutting Tool Sharpener Relationship Specialty Start Date End Date Caitlyn Bowie MD 3400 [facility] 1 [place] [address] PCP - General Internal Medicine 05/06/21 Henry Kelly MD Pulmonary Department 175 [facility], [address] [place] [address] Physician Pulmonary Disease 09/06/17 06/22/20 documented as of this encounter
--- OUTSIDE RECORDS SUMMARY | 2024-10-23 17:57 | XMS_ITS | Encounter Summary ---
Author Organization [facility] Address [address] [place] [address] Care Team Providers Care Bindery Chief Name Role Phone Caitlyn Bowie MD Primary Care Provider +1- [phone] Encounter Details Date Type Department Care Team (Late st Contact Info) Description 12/16/2016 Scanned Document [facility] Health Information Management [address] [place] [address] External, Provider Social History Tobacco Use Types [...] Office Visit [facility] at [address] [place] [address] Ronald Mills MD [address] [place] [phone] documented as of this encounter Procedures [...] as of this encounter Care Teams Bindery Chief Relationship Specialty Start Date End Date Caitlyn Bowie MD 3400 [facility] 1 [place] [address] PCP - General Internal Medicine 05/06/21 Henry Kelly MD Pulmonary Department [address] [place] [address], [address] [place] [address] Physician Pulmonary Disease 09/06/17 06/22/20 documented as of this encounter
--- OUTSIDE RECORDS SUMMARY | 2024-10-23 17:57 | XMS_ITS | Encounter Summary ---
Author Organization [facility] and [facility] Address [address] [place] [address] Care Team Providers Care Research Scholar Name Role Phone Caitlyn Bowie MD Primary Care Provider +1- [phone] Encounter Details Date Type Department Care Team (Late st Contact Info) Description 02/08/2016 Scanned Document [facility] Health Information Management [address] [place] [address] External, Provider Social History Tobacco Use Types [...] Office Visit [facility] at [address] [place] [address] Ronald Mills MD [address] [place] [phone] documented as of this encounter Visit Diagnoses Not on filedocumented in this encounter Additional Health Concerns Infection Onset Date Last Indicated Resolved Time COVID-19 03/05/2022 03/05/2022 03/15/2022 7:18 PM EDT documented as of this encounter Care Teams Research Scholar Relationship Specialty Start Date End Date Caitlyn Bowie MD 3400 [facility] 1 [place] [address] PCP - General Internal Medicine 05/06/21 Henry Kelly MD Pulmonary Department 175 [facility], [address] [place] [address] Physician Pulmonary Disease 09/06/17 06/22/20 documented as of this encounter
--- OUTSIDE RECORDS SUMMARY | 2024-10-23 17:57 | XMS_ITS | Encounter Summary ---
Author Organization [facility] and [facility] Address [address] [place] [address] Care Team Providers Care Wire Drawing Die Maker Name Role Phone Caitlyn Bowie MD Primary Care Provider +1- [phone] Encounter Details Date Type Department Care Team (Late st Contact Info) Description 01/17/2019 Scanned Document [facility] Health Information Management [address] [place] [address] External, Provider Social History Tobacco Use Types [...] Office Visit [facility] at [address] [place] [address] Ronald Mills MD [address] [place] [phone] documented as of this encounter Procedures [...] as of this encounter Care Teams Wire Drawing Die Maker Relationship Specialty Start Date End Date Caitlyn Bowie MD 3400 [facility] 1 [place] [address] PCP - General Internal Medicine 05/06/21 Henry Kelly MD Pulmonary Department 175 [facility], [address] [place] [address] Physician Pulmonary Disease 09/06/17 06/22/20 documented as of this encounter
--- OUTSIDE RECORDS SUMMARY | 2024-10-23 17:57 | XMS_ITS | Clinical Summary ---
Author Organization [facility] Address [address] [place] [address] Care Team Providers Care Insurance Account Assistant Name Role Phone Caitlyn Bowie Primary Care Provider [phone] Allergies Active Allergy Reactions Criticality Noted Date [...] Throat tightness Throat tightness Throat tightness Ipratropium [place] Unknown Medium 12/18/2021 Isosorbide Mononitrate 11/23/2020 Other [...] topic Insurance MEDICARE PART A & B [facility] Care Teams Insurance Account Assistant Relationship Specialty Start Date End Date Caitlyn Bowie [address] [place] [address] PCP - General Internal Medicine 07/18/22
--- OUTSIDE RECORDS SUMMARY | 2024-10-23 17:57 | XMS_ITS | Encounter Summary ---
Author Organization [facility] and [facility] Address [address] [place] [phone] Care Team Providers Care Transit Survey Worker Name Role Phone Caitlyn Bowie MD Primary Care Provider +1- [phone] Encounter Details Date Type Department Care Team (Late st Contact Info) Description 12/14/2016 Scanned Document [facility] Health Information Management [address] [place] [address] External, Provider Social History Tobacco Use Types [...] Office Visit [facility] at [address] [place] [address] Ronald Mills MD [address] [place] [phone] documented as of this encounter Procedures [...] as of this encounter Care Teams Transit Survey Worker Relationship Specialty Start Date End Date Caitlyn Bowie MD 3400 [facility] 1 [place] [address] PCP - General Internal Medicine 05/06/21 Henry Kelly MD Pulmonary Department 175 [facility], [address] [place] [address] Physician Pulmonary Disease 09/06/17 06/22/20 documented as of this encounter
--- OUTSIDE RECORDS SUMMARY | 2024-10-23 17:57 | XMS_ITS | Encounter Summary ---
Author Organization [facility] and [facility] Address [address] [place] [address] Care Team Providers Care Arc Cutter Name Role Phone Caitlyn Bowie MD Primary Care Provider +1- [phone] Encounter Details Date Type Department Care Team (Late st Contact Info) Description 01/28/2019 Scanned Document [facility] at [address] [address] Cristian Arreguin MBBS [address] [place] [address] Social History Tobacco Use Types [...] PM EDT Office Visit Hematology Program at [address] - [address] [phone] Ronald Mills MD [address] [place] [phone] documented as of this encounter Visit Diagnoses Not on filedocumented in this encounter Additional Health Concerns Infection Onset Date Last Indicated Resolved Time COVID-19 03/05/2022 03/05/2022 03/15/2022 7:18 PM EDT Assessment Noted Time PHQ-9 Depression Total Score: 2 11/07/19 19 2:06 PM EDT documented as of this encounter Care Teams Arc Cutter Relationship Specialty Start Date End Date Caitlyn Bowie MD 3400 [facility] 1 [place] [address] PCP - General Internal Medicine 05/06/21 Henry Kelly MD Pulmonary Department [address] [place] [address], [address] [place] [address] Physician Pulmonary Disease 09/06/17 06/22/20 documented as of this encounter
--- OUTSIDE RECORDS SUMMARY | 2024-10-23 17:57 | XMS_ITS | Encounter Summary ---
Author Organization [facility] and [facility] Address [address] [place] [address] Care Team Providers Care Event Crew Technician Name Role Phone Caitlyn Bowie MD Primary Care Provider +1- [phone] Encounter Details Date Type Department Care Team (Late st Contact Info) Description 09/09/2024 Scanned Document INTERFACE DEFAULT [address] [place] [phone] System, Provider Not In Social History Tobacco [...] EDT Office Visit [facility] at [address] - [address] [place] [address] Ronald Mills MD [address] [place] [phone] documented as of this encounter Procedures [...] as of this encounter Care Teams Event Crew Technician Relationship Specialty Start Date End Date Caitlyn Bowie MD [address] [address] PCP - General Internal Medicine 05/06/21 documented as of this encounter
--- OUTSIDE RECORDS SUMMARY | 2024-10-23 17:58 | XMS_ITS | Encounter Summary ---
Author Organization [facility] and [facility] Address [address] [place] [address] Care Team Providers Care Envelope Stamping Machine Operator Name Role Phone Caitlyn Bowie MD Primary Care Provider +1- [phone] Encounter Details Date Type Department Care Team (Late st Contact Info) Description 06/17/2016 Scanned Document [facility] Health Information Management [address] [place] [address] External, Provider Social History Tobacco Use Types [...] Office Visit [facility] at [address] [place] [address] Ronald Mills MD [address] [place] [phone] documented as of this encounter Procedures Procedure Name Priority Date/Time Associated Diagnosis Comments XRAY RESULT SCAN Routine 06/17/2016 documented in this encounter Results * Xray Result Scan (06/17/2016) us Provider External IMG SCAN REPORTS Final Result Performing Organization Address City/State/[facility] Co de Phone Number [facility] [place], [place], [facility] documented in this encounter Visit Diagnoses Not on filedocumented in this encounter Additional Health Concerns Infection Onset Date Last Indicated Resolved Time COVID-19 03/05/2022 03/05/2022 03/15/2022 7:18 PM EDT documented as of this encounter Care Teams Envelope Stamping Machine Operator Relationship Specialty Start Date End Date Caitlyn Bowie MD 3400 [facility] 1 [place] [address] PCP - General Internal Medicine 05/06/21 Henry Kelly MD Pulmonary Department 175 [facility], [address] [place] [address] Physician Pulmonary Disease 09/06/17 06/22/20 documented as of this encounter
--- OUTSIDE RECORDS SUMMARY | 2024-10-23 17:58 | XMS_ITS | Encounter Summary ---
Author Organization [facility] Address [address] [place] [address] Care Team Providers Care Inspector Paper Products Name Role Phone Caitlyn Bowie MD Primary Care Provider +1- [phone] Encounter Details Date Type Department Care Team (Late st Contact Info) Description 06/17/2016 Scanned Document [facility] Health Information Management [address] [place] [address] External, Provider Social History Tobacco Use Types [...] Office Visit [facility] at [address] - [address] [place] [address] Ronald Mills MD [address] [place] [phone] documented as of this encounter Visit Diagnoses Not on filedocumented in this encounter Additional Health Concerns Infection Onset Date Last Indicated Resolved Time COVID-19 03/05/2022 03/05/2022 03/15/2022 7:18 PM EDT documented as of this encounter Care Teams Inspector Paper Products Relationship Specialty Start Date End Date Caitlyn Bowie MD 3400 [facility] 1 [place] [address] PCP - General Internal Medicine 05/06/21 Henry Kelly MD Pulmonary Department 175 [facility], [address] [place] [address] Physician Pulmonary Disease 09/06/17 06/22/20 documented as of this encounter
--- OUTSIDE RECORDS SUMMARY | 2024-10-23 17:58 | XMS_ITS | Encounter Summary ---
Author Organization [facility] and [facility] Address [address] [place] [address] Care Team Providers Care Innovations Paraprofessional Name Role Phone Caitlyn Bowie MD Primary Care Provider +1- [phone] Encounter Details Date Type Department Care Team (Late st Contact Info) Description 07/27/2016 Scanned Document [facility] at [address] [place] [address] Suzy Kong MD [address] [place] [phone] Social History Tobacco Use Types Packs/Day [...] EDT Office Visit Hematology Program at [address] - [address] [place], [place] [address] Ronald Mills MD [address] [phone] documented as of this encounter Visit Diagnoses Not on filedocumented in this encounter Additional Health Concerns Infection Onset Date Last Indicated Resolved Time COVID-19 03/05/2022 03/05/2022 03/15/2022 7:18 PM EDT documented as of this encounter Care Teams Innovations Paraprofessional Relationship Specialty Start Date End Date Caitlyn Bowie MD 3400 [facility] 1 [place] [address] PCP - General Internal Medicine 05/06/21 Henry Kelly MD Pulmonary Department 175 [facility], [address] [place] [address] Physician Pulmonary Disease 09/06/17 06/22/20 documented as of this encounter
--- OUTSIDE RECORDS SUMMARY | 2024-10-23 17:58 | XMS_ITS | Encounter Summary ---
Author Organization [facility] Address [address] [place] [address] Care Team Providers Care Insurance Compliance Analyst Name Role Phone Caitlyn Bowie MD Primary Care Provider +1- [phone] Encounter Details Date Type Department Care Team (Late st Contact Info) Description 07/08/2016 Scanned Document [facility] Health Information Management [address] [place] [address] External, Provider Social History Tobacco Use Types [...] Office Visit [facility] at [address] [place] [address] Ronald Mills MD [address] [place] [phone] documented as of this encounter Procedures Procedure Name Priority Date/Time Associated Diagnosis Comments LAB SCAN Routine 07/08/2016 documented in this encounter Results * Lab Scan (07/08/2016) Blood specimen (specimen) us Provider External LAB BLOOD ORDERABLES Final Res ult [facility] documented in this encounter Visit Diagnoses Not on filedocumented in this encounter Additional Health Concerns Infection Onset Date Last Indicated Resolved Time COVID-19 03/05/2022 03/05/2022 03/15/2022 7:18 PM EDT documented as of this encounter Care Teams Insurance Compliance Analyst Relationship Specialty Start Date End Date Caitlyn Bowie MD 3400 [facility] 1 [place] [address] PCP - General Internal Medicine 05/06/21 Henry Kelly MD Pulmonary Department 175 [facility], [address] [place] [address] Physician Pulmonary Disease 09/06/17 06/22/20 documented as of this encounter
[2024-10-23 18:01] LABS: Ferritin 76 ng/mL (10-250)
[2024-10-23 19:06] LABS: Potassium 2.9 mmol/L (3.3-5.1)
[2024-10-24 13:39] LABS: Kappa Light Chain, Free Serum 24.4 mg/L (3.3-19.4); Kappa/Lambda Lt Ch Free Ratio 1.14 (0.26-1.65); Lambda Light Chain, Free Serum 21.4 mg/L (5.7-26.3)
[2024-10-25 22:43] LABS: IgA 142 mg/dL (70-320); IgG 870 mg/dL (600-1540); IgM 741 mg/dL (50-300)
[2024-10-26 12:22] LABS: Zinc 69 mcg/dL (60-130)
[2024-10-26 13:08] LABS: Methylmalonic Acid 164 nmol/L (85-423)
[2024-10-28 18:29] LABS: Homocysteine 13.2 umol/L (<10.4)
[2024-10-28 21:33] LABS: Prot Elec - Albumin 3.7 g/dL (3.8-4.8); Prot Elec - Alpha1 0.3 g/dL (0.2-0.3); Prot Elec - Alpha2 0.7 g/dL (0.5-0.9); Prot Elec - Beta 1 0.5 g/dL (0.4-0.6); Prot Elec - Beta 2 0.3 g/dL (0.2-0.5); Prot Elec - Total Protein 6.5 g/dL (6.1-8.1)
== END 2024-10-23 15:20 | disposition home or self-care (01) ==
LOC: HO.LAB 15:19
PROVIDERS: PCP Internal Medicine; Referring Provider Hospitalist; Visit Provider Internal Medicine
DX: R63.30 Feeding difficulties, unspecified (principal); I82.90 Acute embolism and thrombosis of unspecified vein; D68.61 Antiphospholipid syndrome; R79.89 Other specified abnormal findings of blood chemistry; R77.1 Abnormality of globulin
CPT/HCPCS: 36415; 80053; 82728; 82784; 83090; 83521; 83540; 83921; 84165; 84630; 85025; 85379; 85610; 86334

== ENCOUNTER 2024-10-25 16:35 | Outpatient (REF) | payer MEDICARE, SELFPAY ==
[2024-10-25 17:24] LABS: Anion Gap 11 (12-20); Blood Urea Nitrogen 24 mg/dL (9-16); Calcium 10.8 mg/dL (8.4-10.2); Carbon Dioxide 33 mmol/L (22-29); Chloride 97 mmol/L (96-108); Estimated Glomerular Filt Rate > 60; Glucose Random 96 mg/dL (60-115); Potassium 4.2 mmol/L (3.3-5.1); Sodium 137 mmol/L (135-145)
== END 2024-10-25 16:36 | disposition home or self-care (01) ==
LOC: HO.LAB 16:35
PROVIDERS: Nurse Practitioner Family; PCP Internal Medicine; Visit Provider Internal Medicine
DX: E87.6 Hypokalemia (principal)
CPT/HCPCS: 36415; 80048

== ENCOUNTER → 2024-10-30 09:49 | Outpatient (REF) | payer MEDICARE, SELFPAY ==
--- NOTE | 2024-10-30 09:51 | CA_ITS ---
Transthoracic Echocardiogram Patient (Last, First, Middle): Jovana Malik J Gender: Female Date of : 1945 Age: 79 Procedure Date: 10/30/2024 Procedure Type: Transthoracic Echocardiogram Location: OP Height: 157.48 cm Weight: 58.97 kg BSA: 1.59 m2 Heart Rate: 81 bpm BP: 108 / 54 mmHg Regulatory Leader: SB Referring MD: Luis Eduardo Cadet MD Continuous Improvement Consultant: Luis Eduardo Cadet MD Symptoms: I50.32 - Chronic diastolic (congestive) heart failure Study Quality: Fair ECG Rhythm: Sinus Conclusions: - The left ventricular systolic function is normal. The visually estimated ejection fraction is between 55-60%. - Evidence suggests grade II (moderate) diastolic dysfunction. - s/p Lucinda-clip. Mean gradient across the mitral valve 7 mm Hg at 73/Min. - Mild pulmonary hypertension is present. - There is a small pericardial effusion. Findings Left Ventricle Normal left ventricular cavity size. The left ventricular systolic function is normal. The visually estimated ejection fraction is between 55-60%. There is no evidence of regional wall motion abnormalities. Evidence suggests grade II (moderate) diastolic dysfunction. There is mild septal asymmetric hypertrophy. Right Ventricle Mildly increased right ventricular cavity size. There is normal right ventricular systolic function. Atria The left atrium is moderately dilated. The right atrium is mildly dilated. Aortic Valve There is a normal trileaflet aortic valve. There is mild calcification of the aortic valve. There is no aortic valve stenosis. There is mild aortic valve regurgitation. Mitral Valve There is moderate mitral annular calcification. There is trace mitral valve regurgitation. There is no mitral valve stenosis. s/p Lucinda-clip. Mean gradient across the mitral valve 7 mm Hg at 73/Min. Pulmonic Valve The pulmonic valve is likely normal. Tricuspid Valve There is mild tricuspid valve regurgitation. Mild pulmonary hypertension is present. Great Vessels The asc aorta is normal in size. Venous The inferior vena cava is normal in size and collapses less than 50% with inspiration. Pericardium/Pleural There is a small pericardial effusion. There are no definitive echocardiographic findings of tamponade physiology. Prior Study Comparison No significant change compared to prior study dated: 11/06/2023. Measurements 2D Linear Measurements IVSd: 1.13 0.6-0.9/0.6-1.0 cm LVIDd: 3.70 3.9-5.3/4.2-5.9 cm LVIDd Index: 2.33 2.4-3.2/2.2-3.1 cm/m2 LVIDs: 2.19 2.0-3.6 cm LVPWd: 0.71 0.7-1.1 cm LA Diam: 3.80 2.7-3.8/3.0-4.0 cm LAIDs Index: 2.39 1.5-2.3 cm/m2 LV Mass: 124.15 67-162/88-224 g LV Mass Index: 78.08 43-95/49-115 g/m2 LVOT Diam: 2.30 3.0+(-)1.3 cm 2D Systolic Function EF 4C: 50.60 >55% EF 2C: 45.70 >55% EF BiP: 50.00 >55% Mitral Valve MV VTI: 0.53 MV Pk Memo: 1.78 MV Mn Memo: 1.23 MV Pk Grad: 13.00 MV Mn Grad: 7.00 MV Pk E: 1.66 MV PK A: 1.39 MV Decel Time: 321.00 E/A: 1.20 E'Lateral: 2.94 E'Medial: 3.15 E/E' Med: 52.70 E/E' Lat: 56.50 PHT: 94.00 MVA PHT: 2.34 MVA Continuity: 1.50 Decel [place]: 5.17 Aortic Valve AoV Pk Memo: 0.96 AoV Pk Grad: 4.00 HARLEY: 3.87 AI Pk Memo: 4.24 AI VTI: 1.81 AI [place]: 3.11 LVOT LVOT Pk Memo: 0.93 LVOT Mn Memo: 0.69 LVOT VTI: 0.19 LVOT Pk Grad: 3.00 LVOT Mn Grad: 2.00 LVOT Diam: 2.30 LVOT Area: 4.15 Diastolic Function MV Pk E: 1.66 MV Pk A: 1.39 E/A: 1.20 E'Medial: 3.15 E/E' Med: 52.70 E' Laterial: 2.94 E/E' Lat: 56.50 Right Ventricle TAPSE (mm): 27.20 TVS' Memo: 10.90 Tricuspid Valve TR Pk Memo: 3.18 TR Pk Grad: 40.00 RA Press: 8.00 RVSP: 48.00 Great Vessels Aorta Sinus of Valsalva: 3.20 2.0-3.5 cm Ao Asc: 2.90 2.1-3.4 cm Pulmonary Valve PV Pk Memo: 0.80 Peak PV Grad: 3.00 Updated in Other Vendor System with Status of Final Hever Denny MD electronically signed on 11/01/2024 12:38:56 PM with status of Final
--- OUTSIDE RECORDS SUMMARY | 2024-10-30 11:07 | XMS_ITS | Encounter Summary ---
Author Organization [facility] and [facility] Address [address] [place] [phone] Care Team Providers Care Jewelsmith Name Role Phone Caitlyn Bowie MD Primary Care Provider +1- [phone] Encounter Details Date Type Department Care Team (Late st Contact Info) Description 02/02/2017 Scanned Document [facility] Health Information Management [address] [place] [phone] External, Provider Social History Tobacco Use Types [...] Office Visit [facility] at [address] [place] [address] Ronald Mills MD [address] [place] [phone] documented as of this encounter Visit Diagnoses Not on filedocumented in this encounter Additional Health Concerns Infection Onset Date Last Indicated Resolved Time COVID-19 03/05/2022 03/05/2022 03/15/2022 7:18 PM EDT documented as of this encounter Care Teams Jewelsmith Relationship Specialty Start Date End Date Caitlyn Bowie MD 3400 [facility] 1 [place] [address] PCP - General Internal Medicine 05/06/21 Henry Kelly MD Pulmonary Department 175 [facility], [address] [place] [address] Physician Pulmonary Disease 09/06/17 06/22/20 documented as of this encounter
--- OUTSIDE RECORDS SUMMARY | 2024-10-30 11:07 | XMS_ITS | Encounter Summary ---
Author Organization [facility] and [facility] Address [address] [place] [address] Care Team Providers Care Inside Sales Territory Manager Name Role Phone Caitlyn Bowie MD Primary Care Provider +1- [phone] Encounter Details Date Type Department Care Team (Late Contact Info) Description 09/15/2020 Scanned Document [facility] at [address] [address] External, Provider Social History Tobacco Use Types [...] EDT Office Visit Hematology Program at [address] - [address] [place], [place] [address] Ronald Mills MD [address] [phone] documented as of this encounter [...] of this encounter Care Teams Inside Sales Territory Manager Relationship Specialty Start Date End Date Caitlyn Bowie MD [facility] [address] [address] PCP - General Internal Medicine 05/06/21 documented as of this encounter
--- OUTSIDE RECORDS SUMMARY | 2024-10-30 11:07 | XMS_ITS | Encounter Summary ---
Author Organization [facility] and [facility] Address [address] [place] [address] Care Team Providers Care Event Technician Name Role Phone Caitlyn Bowie MD Primary Care Provider +1- [phone] Encounter Details Date Type Department Care Team (Late st Contact Info) Description 07/08/2020 Scanned Document [facility] Health Information Management [address] [place] [address] External, Provider Social History Tobacco Use Types [...] Office Visit [facility] at [address] - [address] [place] [address] Ronald Mills MD [address] [place] [phone] documented as of this encounter Procedures [...] as of this encounter Care Teams Event Technician Relationship Specialty Start Date End Date Caitlyn Bowie MD [address] [address] PCP - General Internal Medicine 05/06/21 documented as of this encounter
--- OUTSIDE RECORDS SUMMARY | 2024-10-30 11:07 | XMS_ITS | Encounter Summary ---
Author Organization [facility] and [facility] Address [address] [place] [address] Care Team Providers Care Completion Manager Name Role Phone Caitlyn Bowie MD Primary Care Provider +1- [phone] Encounter Details Date Type Department Care Team (Late Contact Info) Description 09/17/2020 Scanned Document [facility] Health Information Management [address] [place] [address] External, Provider Social History Tobacco Use Types [...] Office Visit [facility] at [address] - [address] [place] [address] Ronald Mills MD [address] [place] [phone] documented as of this encounter Procedures [...] End Date Caitlyn Bowie MD [address] [address] PCP - General Internal Medicine 05/06/21 documented as of this encounter
--- OUTSIDE RECORDS SUMMARY | 2024-10-30 11:07 | XMS_ITS | Encounter Summary ---
Author Organization [facility] and [facility] Address [address] [place] [address] Care Team Providers Care Checkroom Attendant Name Role Phone Caitlyn Bowie MD Primary Care Provider +1- [phone] Encounter Details Date Type Department Care Team (Late Contact Info) Description 09/15/2020 Scanned Document [facility] Health Information Management [address] [place] [address] External, Provider Social History Tobacco Use Types [...] Office Visit [facility] at [address] - [address] [place] [address] Ronald Mills MD [address] [place] [phone] documented as of this encounter Procedures [...] documented as of this encounter Care Teams Checkroom Attendant Relationship Specialty Start Date End Date Caitlyn Bowie MD [address] [address] PCP - General Internal Medicine 05/06/21 documented as of this encounter
--- OUTSIDE RECORDS SUMMARY | 2024-10-30 11:07 | XMS_ITS | Encounter Summary ---
Author Organization [facility] and [facility] Address [address] [place] [address] Care Team Providers Care Mold Closer Name Role Phone Caitlyn Bowie MD Primary Care Provider +1- [phone] Encounter Details Date Type Department Care Team (Late st Contact Info) Description 02/20/2017 Scanned Document [facility] Health Information Management [address] [place] [address] External, Provider Social History Tobacco Use Types [...] Office Visit [facility] at [address] - [address] [place] [address] Ronald Mills MD [address] [place] [phone] documented as of this encounter Procedures [...] as of this encounter Care Teams Mold Closer Relationship Specialty Start Date End Date Caitlyn Bowie MD [facility] 1 [place] [address] PCP - General Internal Medicine 05/06/21 Henry Kelly MD Pulmonary Department 175 [facility], [address] [place] [address] Physician Pulmonary Disease 09/06/17 06/22/20 documented as of this encounter
--- OUTSIDE RECORDS SUMMARY | 2024-10-30 11:07 | XMS_ITS | Encounter Summary ---
Author Organization [facility] and [facility] Address [address] [place] [address] Care Team Providers Care Charge Account Identification Clerk Name Role Phone Caitlyn Bowie MD Primary Care Provider +1- [phone] Encounter Details Date Type Department Care Team (Late st Contact Info) Description 09/15/2020 Scanned Document INTERFACE DEFAULT [address] [place] [address] System, Provider Not In Social History Tobacco [...] Office Visit [facility] at [address] - [address] [place] [address] Ronald Mills MD [address] [place] [phone] documented as of this encounter Visit [...] End Date Caitlyn Bowie MD [address] [address] PCP - General Internal Medicine 05/06/21 documented as of this encounter
--- OUTSIDE RECORDS SUMMARY | 2024-10-30 11:07 | XMS_ITS | Encounter Summary ---
Author Organization [facility] and [facility] Address [address] [place] [address] Care Team Providers Care Cosmetology Teacher Name Role Phone Caitlyn Bowie MD Primary Care Provider +1- [phone] Encounter Details Date Type Department Care Team (Late Contact Info) Description 09/18/2020 Scanned Document [facility] Health Information Management [address] [place] [address] External, Provider Social History Tobacco Use Types [...] Office Visit [facility] at [address] - [address] [place] [address] Ronald Mills MD [address] [place] [phone] documented as of this encounter Procedures [...] documented as of this encounter Care Teams Cosmetology Teacher Relationship Specialty Start Date End Date Caitlyn Bowie MD [address] [address] PCP - General Internal Medicine 05/06/21 documented as of this encounter
--- OUTSIDE RECORDS SUMMARY | 2024-10-30 11:07 | XMS_ITS | Encounter Summary ---
Author Organization [facility] and [facility] Address [address] [place] [address] Care Team Providers Care Airline Counter Agent Name Role Phone Caitlyn Bowie MD Primary Care Provider +1- [phone] Encounter Details Date Type Department Care Team (Late st Contact Info) Description 12/16/2016 Scanned Document [facility] Health Information Management [address] [place] [address] External, Provider Social History Tobacco Use Types [...] Office Visit [facility] at [address] - [address] [place] [address] Ronald Mills MD [address] [place] [phone] documented as of this encounter Procedures [...] documented as of this encounter Care Teams Airline Counter Agent Relationship Specialty Start Date End Date Caitlyn Bowie MD 3400 [facility] 1 [place] [address] PCP - General Internal Medicine 05/06/21 Henry Kelly MD Pulmonary Department 175 [facility], [address] [place] [address] Physician Pulmonary Disease 09/06/17 06/22/20 documented as of this encounter
--- OUTSIDE RECORDS SUMMARY | 2024-10-30 11:07 | XMS_ITS | Encounter Summary ---
Author Organization [facility] and [facility] Address [address] [place] [address] Care Team Providers Care Press Officer Name Role Phone Caitlyn Bowie MD Primary Care Provider +1- [phone] Encounter Details Date Type Department Care Team (Late Contact Info) Description 09/16/2020 Scanned Document [facility] Health Information Management [address] [place] [address] External, Provider Social History Tobacco Use Types [...] Office Visit [facility] at [address] - [address] [place] [address] Ronald Mills MD [address] [place] [phone] documented as of this encounter Procedures [...] as of this encounter Care Teams Press Officer Relationship Specialty Start Date End Date Caitlyn Bowie MD [address] [address] PCP - General Internal Medicine 05/06/21 documented as of this encounter
--- OUTSIDE RECORDS SUMMARY | 2024-10-30 11:07 | XMS_ITS | Encounter Summary ---
Author Organization [facility] and [facility] Address [address] [place] [address] Care Team Providers Care Plastic Sheeting Cutter Name Role Phone Caitlyn Bowie MD Primary Care Provider +1- [phone] Encounter Details Date Type Department Care Team (Late Contact Info) Description 09/16/2020 Scanned Document [facility] Health Information Management [address] [place] [address] External, Provider Social History Tobacco Use Types [...] Office Visit [facility] at [address] - [address] [place] [address] Ronald Mills MD [address] [place] [phone] documented as of this encounter Procedures [...] as of this encounter Care Teams Plastic Sheeting Cutter Relationship Specialty Start Date End Date Caitlyn Bowie MD [facility] [address] [address] PCP - General Internal Medicine 05/06/21 documented as of this encounter
--- OUTSIDE RECORDS SUMMARY | 2024-10-30 11:07 | XMS_ITS | Encounter Summary ---
Author Organization [facility] and [facility] Address [address] [place] [address] Care Team Providers Care Class A Regional Drivers Name Role Phone Caitlyn Bowie MD Primary Care Provider +1- [phone] Encounter Details Date Type Department Care Team (Late st Contact Info) Description 02/20/2017 Scanned Document [facility] Health Information Management [address] [place] [address] External, Provider Social History Tobacco Use Types [...] Office Visit [facility] at [address] - [address] [place] [address] Ronald Mills MD [address] [place] [phone] documented as of this encounter Procedures [...] documented as of this encounter Care Teams Class A Regional Drivers Relationship Specialty Start Date End Date Caitlyn Bowie MD 3400 [facility] 1 [place] [address] PCP - General Internal Medicine 05/06/21 Henry Kelly MD Pulmonary Department 175 [facility], [address] [place] [address] Physician Pulmonary Disease 09/06/17 06/22/20 documented as of this encounter
--- OUTSIDE RECORDS SUMMARY | 2024-10-30 11:07 | XMS_ITS | Patient Health Record ---
Author Organization [facility] Address [address] [place] [address] Care Team Providers Care Video Technician Name Role Phone Shruti Bowieberly Primary Care Provider Cristian Fountain Unavailable [phone] Allergies Allergen (clinical drug ingredient) Drug/Non Drug [...] Status W/U Status Risk Notes Problem Diverticulitis (843174663) Diverticulitis (K57.92) Active confirmed Problem Irritable bowel syndrome characterized by constipation (882903406) Irritable bowel syndrome with constipation (K58.9) Active confirmed Problem Gastroesophageal reflux disease (069241315) GERD (gastroesophageal reflux disease) (K21.9) Active confirmed Plan Of Treatment No Information Insurance Providers Payer Name Payer Address Payer Phone Subscriber Number Group Number Insured Name Patient Relationship to Insured Coverage Start Date Coverage End Date MEDICARE OF [place] [address] [place] [address] [phone] [id number] CINDA WATSON Self - patient is the insured [employer] ATT[employer] CLAIMS [address] [place] [address] [id number] CINDA WATSON Self - patient is the insured Medical (General) History Medical History History ICD Code [place]-04/2021-sees Dr. 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-has had EGD's with Dr. Gomes Pneumomias Hypothyroidism Surgical History Surgery Date(Month/Year) Tonsils and adenoids [facility] Lung cancer-Left lower lobectomy at [facility] [place], XRT, Chemo 2008
--- OUTSIDE RECORDS SUMMARY | 2024-10-30 11:07 | XMS_ITS | Encounter Summary ---
Author Organization [facility] and [facility] Address [address] [place] [address] Care Team Providers Care Transplanter Name Role Phone Caitlyn Bowie MD Primary Care Provider +1- [phone] Encounter Details Date Type Department Care Team (Late st Contact Info) Description 05/14/2020 Documentation Hematology Program at [address] [place] [address] Taya Nuno RN Social History Tobacco Use [...] PM EDT Office Visit Hematology Program at [address] - [address] [place] [address] Ronald Mills MD [address] [place] [phone] documented as of this encounter Visit Diagnoses Not on filedocumented in this encounter Additional Health Concerns Infection Onset Date Last Indicated Resolved Time COVID-19 03/05/2022 03/05/2022 03/15/2022 7:18 PM EDT Assessment Noted Time PHQ-9 Depression Total Score: 2 11/07/19 19 2:06 PM EDT documented as of this encounter Care Teams Transplanter Relationship Specialty Start Date End Date Caitlyn Bowie MD 3400 [facility] 1 [place] [address] PCP - General Internal Medicine 05/06/21 Henry Kelly MD Pulmonary Department 175 [facility], [address] [place] [address] Physician Pulmonary Disease 09/06/17 06/22/20 documented as of this encounter
--- OUTSIDE RECORDS SUMMARY | 2024-10-30 11:07 | XMS_ITS | Encounter Summary ---
Author Organization [facility] and [facility] Address [address] [place] [address] Care Team Providers Care Assistant Clinical Director Name Role Phone Caitlyn Bowie MD Primary Care Provider +1- [phone] Encounter Details Date Type Department Care Team (Late Contact Info) Description 05/19/2020 Scanned Document [facility] Center at [address] [address] External, Provider Social History Tobacco Use Types [...] EDT Office Visit Hematology Program at [address] - [address] [place], [place] [address] Ronald Mills MD [address] [place] [phone] documented as of this encounter Procedures [...] as of this encounter Care Teams Assistant Clinical Director Relationship Specialty Start Date End Date Caitlyn Bowie MD 3400 [facility] 1 [place] [address] PCP - General Internal Medicine 05/06/21 Henry Kelly MD Pulmonary Department 175 [facility], [address] [place] [address] Physician Pulmonary Disease 09/06/17 06/22/20 documented as of this encounter
--- OUTSIDE RECORDS SUMMARY | 2024-10-30 11:08 | XMS_ITS | Encounter Summary ---
Author Organization [facility] and [facility] Address [address] [place] [place] [address] Care Team Providers Care Contingents Supervisor Name Role Phone Caitlyn Bowie MD Primary Care Provider +1- [phone] Encounter Details Date Type Department Care Team (Late st Contact Info) Description 06/27/2019 Scanned Document Onco-Oncology Program at [address] [address] Norma Renee MD [address] [place] [address] Social History Tobacco Use Types Packs/Day [...] EDT Office Visit Hematology Program at [address] - [address] [place] [address] Ronald Mills MD [address] [phone] documented as of this encounter Visit Diagnoses Not on filedocumented in this encounter Additional Health Concerns Infection Onset Date Last Indicated Resolved Time COVID-19 03/05/2022 03/05/2022 03/15/2022 7:18 PM EDT Assessment Noted Time PHQ-9 Depression Total Score: 2 11/07/19 19 2:06 PM EDT documented as of this encounter Care Teams Contingents Supervisor Relationship Specialty Start Date End Date Caitlyn Bowie MD 3400 [facility] 1 [place] [address] PCP - General Internal Medicine 05/06/21 Henry Kelly MD Pulmonary Department 175 [facility], [address] [place] [address] Physician Pulmonary Disease 09/06/17 06/22/20 documented as of this encounter
--- OUTSIDE RECORDS SUMMARY | 2024-10-30 11:08 | XMS_ITS | Encounter Summary ---
Author Organization [facility] Address [address] [place] [address] Care Team Providers Care Chemical Dependency Attendant Name Role Phone Caitlyn Bowie MD Primary Care Provider +1- [phone] Encounter Details Date Type Department Care Team (Late st Contact Info) Description 04/27/2017 Scanned Document [facility] Health Information Management [address] [place] [address] External, Provider Social History Tobacco Use Types [...] Office Visit [facility] at [address] - [address] [place] [address] Ronald Mills MD [address] [place] [phone] documented as of this encounter Visit Diagnoses Not on filedocumented in this encounter Additional Health Concerns Infection Onset Date Last Indicated Resolved Time COVID-19 03/05/2022 03/05/2022 03/15/2022 7:18 PM EDT documented as of this encounter Care Teams Chemical Dependency Attendant Relationship Specialty Start Date End Date Caitlyn Bowie MD 3400 [facility] 1 [place] [address] PCP - General Internal Medicine 05/06/21 Henry Kelly MD Pulmonary Department 175 [facility], [address] [place] [address] Physician Pulmonary Disease 09/06/17 06/22/20 documented as of this encounter
--- OUTSIDE RECORDS SUMMARY | 2024-10-30 11:08 | XMS_ITS | Encounter Summary ---
Author Organization [facility] Address [address] [place] [address] Care Team Providers Care Fiscal Specialist Name Role Phone Caitlyn Bowie MD Primary Care Provider +1- [phone] Encounter Details Date Type Department Care Team (Late st Contact Info) Description 02/21/2017 Scanned Document [facility] Health Information Management [address] [place] [address] External, Provider Social History Tobacco Use Types [...] Office Visit [facility] at [address] - [address] [place] [address] Ronald Mills MD [address] [place] [phone] documented as of this encounter Procedures [...] documented as of this encounter Care Teams Fiscal Specialist Relationship Specialty Start Date End Date Caitlyn Bowie MD [facility]0 [facility] 1 [place] [address] PCP - General Internal Medicine 05/06/21 Henry Kelly MD Pulmonary Department 175 [facility], [address] [place] [address] Physician Pulmonary Disease 09/06/17 06/22/20 documented as of this encounter
--- OUTSIDE RECORDS SUMMARY | 2024-10-30 11:08 | XMS_ITS | Encounter Summary ---
Author Organization [facility] and [facility] Address [address] [place] [address] Care Team Providers Care Diabetes Territory Manager Name Role Phone Caitlyn Bowie MD Primary Care Provider +1- [phone] Encounter Details Date Type Department Care Team (Late Contact Info) Description 12/16/2016 Scanned Document [facility] Health Information Management [address] [place] [address] External, Provider Social History Tobacco Use Types [...] Office Visit [facility] at [address] - [address] [place] [address] Ronald Mills MD [address] [place] [phone] documented as of this encounter Procedures [...] documented as of this encounter Care Teams Diabetes Territory Manager Relationship Specialty Start Date End Date Caitlyn Bowie MD 3400 [facility] 1 [place] [address] PCP - General Internal Medicine 05/06/21 Henry Kelly MD Pulmonary Department 175 [facility], [address] [place] [address] Physician Pulmonary Disease 09/06/17 06/22/20 documented as of this encounter
--- OUTSIDE RECORDS SUMMARY | 2024-10-30 11:08 | XMS_ITS | Encounter Summary ---
Author Organization [facility] Address [address] [place] [address] Care Team Providers Care Clerical Administrative Assistant Name Role Phone Caitlyn Bowie MD Primary Care Provider +1- [phone] Encounter Details Date Type Department Care Team (Late st Contact Info) Description 04/26/2017 Scanned Document Cardiovascular Medicine at [address] [place] [address] System, Provider Not In Social History Tobacco [...] EDT Office Visit Hematology Program at [address] [address] Ronald Mills MD [address] [place] [phone] documented as of this encounter Procedures [...] as of this encounter Care Teams Clerical Administrative Assistant Relationship Specialty Start Date End Date Caitlyn Bowie MD 3400 [facility] 1 [place] [address] PCP - General Internal Medicine 05/06/21 Henry Kelly MD Pulmonary Department 175 [facility], [address] [place] [address] Physician Pulmonary Disease 09/06/17 06/22/20 documented as of this encounter
--- OUTSIDE RECORDS SUMMARY | 2024-10-30 11:08 | XMS_ITS | Encounter Summary ---
Author Organization [facility] and [facility] Address [address] [place] [address] Care Team Providers Care Operator Catalyst Concentration Name Role Phone Caitlyn Bowie MD Primary Care Provider +1- [phone] Encounter Details Date Type Department Care Team (Late Contact Info) Description 12/16/2016 Scanned Document [facility] Health Information Management [address] [place] [address] External, Provider Social History Tobacco Use Types [...] Office Visit [facility] at [address] [place] [address] Ronald Mills MD [address] [place] [phone] documented as of this encounter Procedures [...] as of this encounter Care Teams Operator Catalyst Concentration Relationship Specialty Start Date End Date Caitlyn Bowie MD 3400 [facility] 1 [place] [address] PCP - General Internal Medicine 05/06/21 Henry Kelly MD Pulmonary Department 175 [facility], [address] [place] [address] Physician Pulmonary Disease 09/06/17 06/22/20 documented as of this encounter
--- OUTSIDE RECORDS SUMMARY | 2024-10-30 11:08 | XMS_ITS | Clinical Summary ---
Author Organization [address] Address [address] [place] [address] Phone Care Team Providers Care Soc Analyst Name Role Phone Caitlyn Bowie MD Primary Care Provider +1- [phone] Allergies Active Allergy Reactions Criticality Noted Date [...] Encounters Date Type Department Care Team Description 10/25/2024 Orders Only [facility] at [address] [place] [address] Taya Nuno RN Hypokalemia (Primary Dx) 10/25/2024 Telephone Hematology Program at [address] [address] Ronald Mills MD Other; Triage 10/23/2024 Scanned Document INTERFACE DEFAULT [address] [place] [address] System, Provider Not In 10/23/2024 Telephone Hematology Program at [address] [address] Marcus Valera MD Triage 10/23/2024 Orders Only Hematology Program at [address] [address] Ronald Mills MD VTE (venous thromboembolism) (Primary Dx); Antiphospholipid antibody syndrome (HC Code); Elevated homocysteine; Abnormal gamma globulin level; Feeding difficulties, unspecified 10/23/2024 Telephone Cancer Center at [address] [place] [address] Ronald Mills MD Labs Only 10/22/2024 Telephone Hematology Program at [address] [address] Ronald Mills MD Other 10/18/2024 10:30 AM EDT Office Visit [facility] [address] [facility] [address] [place] [address] Alfredo Michaud Jr., PA KANDY (obstructive sleep apnea) (Primary Dx); Fatigue, unspecified type; Excessive daytime sleepiness; MCI (mild cognitive impairment) with memory loss 09/30/2024 Orders Only [facility] [place] [address] [place] [address] [address] [place] [phone] Adalgisa Whitney MD KANDY (obstructive sleep apnea) 09/30/2024 Orders Only [facility] [address] [place] [address] Adalgisa Whitney MD KANDY (obstructive sleep apnea) (Primary Dx) 09/24/2024 Telephone [facility] [address] [facility] [address] Ronald Mills MD Triage; Results 09/23/2024 Scanned Document INTERFACE DEFAULT [address] [place] [address] System, Provider Not In 09/15/2024 Scanned Document INTERFACE DEFAULT [address] [place] [address] System, Provider Not In 09/09/2024 Scanned Document INTERFACE DEFAULT [address] [place] [address] System, Provider Not In 08/30/2024 Abstract [facility] [address] [place] [phone] Adalgisa Whitney MD 08/08/2024 Scanned Document INTERFACE DEFAULT [address] [place] [address] System, Provider Not In from Last 3 [...] Office Visit [facility] at [address] [place] [address] Ronald Mills MD [address] [place] [address], [place] [address] Health Maintenance Due Date Last Done [...] Priority Date/Time Associated Diagnosis Comments LAB SCAN 10/25/2024 12:00 AM EDT LAB SCAN 10/23/2024 12:00 AM EDT LAB SCAN 10/23/2024 12:00 AM EDT LAB SCAN 10/23/2024 12:00 AM EDT LAB SCAN 10/23/2024 12:00 AM EDT LAB SCAN 10/23/2024 12:00 AM EDT LAB SCAN 09/23/2024 12:00 [...] to Health Maintenance Results * Lab Scan (10/25/2024 12:00 AM EDT) Only the most recent of14 resultswithin the time period is included. us Provider Not In System LAB BLOOD ORDERABLES Carmina l Result * (ABNORMAL) Comprehensive metabolic panel (04/05/2022 1:13 PM EDT) Pathologist [facility] Sodium 138 136 - 144 mmol/L 04/05/2022 1:43 PM EDT [facility] Potassium 4.7 3.3 - 5.3 mmol/L 04/05/2022 1:43 PM EDT [facility] Chloride 100 98 - 107 mmol/L 04/05/2022 1:43 PM EDT [facility] CO2 30 20 - 30 mmol/L 04/05/2022 1:43 PM EDT [facility] Anion Gap 8 7 - 17 04/05/2022 1:43 PM EDT [facility] Glucose 115(H) 70 - 100 mg/dL 04/05/2022 1:43 PM EDT [facility] BUN 16 8 - 23 mg/dL 04/05/2022 1:43 PM EDT [facility] Creatinine 0.89 0.40 - 1.30 mg/dL 04/05/2022 1:43 PM EDT [facility] Calcium 10.5(H) 8.8 - 10.2 mg/dL 04/05/2022 1:43 PM EDT [facility] BUN/Creatinine Ratio 18.0 8.0 - 23.0 03/11 1:43 PM [facility] Total Protein 7.0 6.6 - 8.7 g/dL 04/05/2022 1:43 PM [facility] Albumin 4.2 3.6 - 4.9 g/dL 04/05/2022 1:43 PM T [facility] Total Bilirubin 0.6 <=1.2 mg/dL 04/05/2022 1:43 PM [facility] Alkaline Phosphatase 58 9 - 122 U/L 04/05/2022 1:43 PM [facility] Alanine Aminotransferase (ALT) 19 10 - 35 U/L 04/05/2022 1:43 PM [facility] Comment:Calcium dobesilate c an cause artificially low ALT results at therapeutic concentrations Aspartate Aminotransferase (AST) 26 10 - 35 U/L 04/05/2022 1:43 PM [facility] Globulin 2.8 2.3 - 3.5 g/dL 04/05/2022 1:43 PM [facility] A/G Ratio 1.5 1.0 - 2.2 04/05/2022 1:43 PM [facility] AST/ALT Ratio 1.4 See Comment 04/05/2022 1:43 PM [facility] Comment: Adult with mild elevations [...] >=60 mL/min/1.7 3m2 04/05/2022 1:43 PM EDT [facility] Comment:Estimated glomerular filtration rate (eGFR) [...] MD LAB BLOOD ORDERABLES Final Resul t [facility] [address] [place] [address] * Bone Density Result Scan (05/10/2017) us Historical Provider IMG SCAN REPORTS Final Resul t * (ABNORMAL) Lipid panel (03/18/2016 2:55 PM EDT) Cholesterol 229(H) 115 - 199 mg/dL 03/18/2016 8:11 PM EDT [facility] HDL 83 >=40 mg/dL 03/18/2016 8:11 PM EDT [facility] Triglycerides 71 30 - 150 mg/dL 03/18/2016 8:11 PM EDT [facility] Chol/HDL Ratio 2.8 <=5 03/18/2016 8:11 PM EDT [facility] Comment:Cholesterol/HDL rati o cannot be calculated. LDL Calculated 132 See Comment mg/dL 03/18/2016 8:11 PM EDT [facility] Comment: <100: Optimal 100-129: Near optimal/above optimal 130-159: Borderline high risk 160-189: High risk ??>=190: Very high risk Blood specimen (specimen) Venipuncture / Unknown 03/18/2016 2:55 PM EDT 03/18/2016 3:17 PM EDT Narrative [facility] - 03/18/2016 8:11 PM EDT $18.27 us Sangeeta Garces MD LAB BLOOD ORDERABLES Fin al Result Performing Organization Address City/State/[facility] Co de Phone Number [facility] [address] [place] [address], [facility] [phone] * MAMMOGRAPHY REPORT (04/25/2013 6:47 AM EDT) 04/25/2013 6:47 AM EDT us Provider Not In System IMG SCAN REPORTS Final Re sult from Last 3 Months or Most Recently Relevant to Health Maintenance Insurance MEDICARE [facility] MEDICARE [facility]IC[facility] MEDICARE MEDICARE [facility] Advance Directives * Full ACLS (Latest Code Status on File) Date Activated Date Inactivated Comments 12/15/2018 7:13 PM 12/16/2018 6:09 PM * Full Interventions Date Activated Date Inactivated Comments 03/18/2016 6:34 PM 03/19/2016 6:40 PM Care Teams Soc Analyst Relationship Specialty Start Date End Date Caitlyn Bowie MD [address] [address] PCP - General Internal Medicine 05/06/21
--- OUTSIDE RECORDS SUMMARY | 2024-10-30 11:08 | XMS_ITS | Encounter Summary ---
Author Organization [facility] Address [address] [place] [address] Care Team Providers Care Extracorporeal Technician Name Role Phone Caitlyn Bowie MD Primary Care Provider +1- [phone] Encounter Details Date Type Department Care Team (Late st Contact Info) Description 03/01/2017 Scanned Document Onco-Oncology Program at [address] [address] Norma Renee MD [address] [place] [address] [address] [place] [address] Social History Tobacco Use Types [...] PM EDT Office Visit Hematology Program at [address] [place] [address] Ronald Mills MD [address] [address] documented as of this encounter Visit Diagnoses Not on filedocumented in this encounter Additional Health Concerns Infection Onset Date Last Indicated Resolved Time COVID-19 03/05/2022 03/05/2022 03/15/2022 7:18 PM EDT documented as of this encounter Care Teams Extracorporeal Technician Relationship Specialty Start Date End Date Caitlyn Bowie MD 3400 [facility] [address] [place] [address] PCP - General Internal Medicine 05/06/21 Henry Kelly MD Pulmonary Department 175 [facility], [address] [place] [address] Physician Pulmonary Disease 09/06/17 06/22/20 documented as of this encounter
--- OUTSIDE RECORDS SUMMARY | 2024-10-30 11:08 | XMS_ITS | Encounter Summary ---
Author Organization [facility] and [facility] Address [address] [place] [address] Care Team Providers Care Coat Joiner Name Role Phone Caitlyn Bowie MD Primary Care Provider +1- [phone] Encounter Details Date Type Department Care Team (Late st Contact Info) Description 04/18/2013 Documentation Hematology Program at [address] [address] Isis Ragland RN Social History Tobacco Use [...] PM EDT Office Visit Hematology Program at [address] [address] Ronald Mills MD [address] [place] [address] documented as of this encounter Visit Diagnoses Not on filedocumented in this encounter Additional Health Concerns Infection Onset Date Last Indicated Resolved Time COVID-19 03/05/2022 03/05/2022 03/15/2022 7:18 PM EDT documented as of this encounter Care Teams Coat Joiner Relationship Specialty Start Date End Date Caitlyn Bowie MD 3400 [facility] 1 [place] [address] PCP - General Internal Medicine 05/06/21 Henry Kelly MD Pulmonary Department [address] [place] [address], [address] [place] [address] Physician Pulmonary Disease 09/06/17 06/22/20 documented as of this encounter
--- OUTSIDE RECORDS SUMMARY | 2024-10-30 11:08 | XMS_ITS | Encounter Summary ---
Author Organization [facility] Address [address] [place] [address] Care Team Providers Care Staff Radiographer Name Role Phone Caitlyn Bowie MD Primary Care Provider +1- [phone] Encounter Details Date Type Department Care Team (Late st Contact Info) Description 06/21/2012 Abstract Head & Neck Cancers Program at [facility] 35 [facility], 4 [place] [address] Mikel Lloyd MD [address] [place] [address] Social History Tobacco Use Types Packs/Day Years [...] EDT Office Visit Hematology Program at [address] [place] [address] Ronald Mills MD [address] [place] [phone] documented as of this encounter Visit Diagnoses Not on filedocumented in this encounter Additional Health Concerns Infection Onset Date Last Indicated Resolved Time COVID-19 03/05/2022 03/05/2022 03/15/2022 7:18 PM EDT documented as of this encounter Care Teams Staff Radiographer Relationship Specialty Start Date End Date Caitlyn Bowie MD 3400 [facility] 1 [place] [address] PCP - General Internal Medicine 05/06/21 Henry Kelly MD Pulmonary Department 175 [facility], [address] [place] [address] Physician Pulmonary Disease 09/06/17 06/22/20 documented as of this encounter
--- OUTSIDE RECORDS SUMMARY | 2024-10-30 11:08 | XMS_ITS | Encounter Summary ---
Author Organization [facility] and [facility] Address [address] [place] [address] Care Team Providers Care Medical Oncologist Name Role Phone Caitlyn Bowie MD Primary Care Provider +1- [phone] Encounter Details Date Type Department Care Team (Latest Contact Info) Description 04/15/2013 Transcribed Orders [facility] [address] [place], [place] [address] Tian Atwood MD [address] [address] Unspecified hypothyroidism (Primary Dx) Social [...] Office Visit [facility] at [address] - [address] [phone] Ronald Mills MD [address] [phone] documented as of this encounter Results * Copper, serum total ([facility]) (04/15/2013 4:31 PM EDT) Copper, Serum Total SEE BELOW [facility] Comment: Test ?Result ? Flag ??Unit ?RefValue Copper, S ? 1.35 ? mcg/mL ??0.75-1.45 04/15/2013 4:31 PM EDT us Tian Atwood MD LAB BLOOD ORDERABLES Final R esult [facility] [address] [place] [address] documented in this encounter Visit Diagnoses Diagnosis Unspecified hypothyroidism- Primary documented in this encounter Additional Health Concerns Infection Onset Date Last Indicated Resolved Time COVID-19 03/05/2022 03/05/2022 03/15/2022 7:18 PM EDT documented as of this encounter Care Teams Medical Oncologist Relationship Specialty Start Date End Date Caitlyn Bowie MD 3400 [facility] [address] 1 [place] [address] PCP - General Internal Medicine 05/06/21 Henry Kelly MD Pulmonary Department 175 [facility], [address] [place] [address] Physician Pulmonary Disease 09/06/17 06/22/20 documented as of this encounter
--- OUTSIDE RECORDS SUMMARY | 2024-10-30 11:08 | XMS_ITS | Encounter Summary ---
Author Organization [facility] Address [address] [place] [address] Care Team Providers Care Beam Sealer Name Role Phone Caitlyn Bowie MD Primary Care Provider +1- [phone] Encounter Details Date Type Department Care Team (Late Contact Info) Description 01/28/2013 Scanned Document Thoracic Oncology Program at [address] [address] Solo Henry MD [address] [place] [phone] Social History Tobacco Use Types Packs/Day [...] EDT Office Visit Hematology Program at [address] [place] [address] Ronald Mills MD [address] [phone] documented as of this encounter Visit Diagnoses Not on filedocumented in this encounter Additional Health Concerns Infection Onset Date Last Indicated Resolved Time COVID-19 03/05/2022 03/05/2022 03/15/2022 7:18 PM EDT documented as of this encounter Care Teams Beam Sealer Relationship Specialty Start Date End Date Caitlyn Bowie MD 3400 [facility] 1 [place] [address] PCP - General Internal Medicine 05/06/21 Henry Kelly MD Pulmonary Department 175 [facility], [address] [place] [address] Physician Pulmonary Disease 09/06/17 06/22/20 documented as of this encounter
--- OUTSIDE RECORDS SUMMARY | 2024-10-30 11:08 | XMS_ITS | Encounter Summary ---
Author Organization [facility] and [facility] Address [address] [place] [address] Care Team Providers Care Community Service Organization Director Name Role Phone Caitlyn Bowie MD Primary Care Provider +1- [phone] Encounter Details Date Type Department Care Team (Late Contact Info) Description 08/29/2019 Scanned Document Cancer Center at [address] [address] External, Provider Social History Tobacco Use Types [...] EDT Office Visit Hematology Program at [address] [place], [place] [address] Ronald Mills MD [address] [place] [phone] documented as of this encounter Procedures [...] of this encounter Care Teams Community Service Organization Director Relationship Specialty Start Date End Date Caitlyn Bowie MD 3400 [facility] 1 [place] [address] PCP - General Internal Medicine 05/06/21 Henry Kelly MD Pulmonary Department 175 [facility], [address] [place] [address] Physician Pulmonary Disease 09/06/17 06/22/20 documented as of this encounter
--- OUTSIDE RECORDS SUMMARY | 2024-10-30 11:08 | XMS_ITS | Encounter Summary ---
Author Organization [facility] Address [address] [place] [address] Care Team Providers Care Car Repairer Helper Name Role Phone Caitlyn Bowie MD Primary Care Provider +1- [phone] Encounter Details Date Type Department Care Team (Late st Contact Info) Description 12/19/2016 Scanned Document [facility] Health Information Management [address] [place] [address] External, Provider Social History Tobacco Use Types [...] Office Visit [facility] at [address] [place] [address] Ronald Mills MD [address] [place] [phone] documented as of this encounter Procedures [...] as of this encounter Care Teams Car Repairer Helper Relationship Specialty Start Date End Date Caitlyn Bowie MD 3400 [facility] 1 [place] [address] PCP - General Internal Medicine 05/06/21 Henry Kelly MD Pulmonary Department 175 [facility], [address] [place] [address] Physician Pulmonary Disease 09/06/17 06/22/20 documented as of this encounter
--- OUTSIDE RECORDS SUMMARY | 2024-10-30 11:08 | XMS_ITS | Encounter Summary ---
Author Organization [facility] and [facility] Address [address] [place] [address] Care Team Providers Care Urban And Regional Planner Name Role Phone Caitlyn Bowie MD Primary Care Provider +1- [phone] Encounter Details Date Type Department Care Team (Late st Contact Info) Description 06/27/2019 Scanned Document Onco-Oncology Program at [address] [address] Norma Renee MD [address] [place] [address] Social History Tobacco Use Types Packs/Day [...] EDT Office Visit Hematology Program at [address] [place] [address] Ronald Mills MD [address] [phone] documented as of this encounter Visit Diagnoses Not on filedocumented in this encounter Additional Health Concerns Infection Onset Date Last Indicated Resolved Time COVID-19 03/05/2022 03/05/2022 03/15/2022 7:18 PM EDT Assessment Noted Time PHQ-9 Depression Total Score: 2 11/07/19 19 2:06 PM EDT documented as of this encounter Care Teams Urban And Regional Planner Relationship Specialty Start Date End Date Caitlyn Bowie MD 3400 [facility] 1 [place] [address] PCP - General Internal Medicine 05/06/21 Henry Kelly MD Pulmonary Department 175 [facility], [address] [place] [address] Physician Pulmonary Disease 09/06/17 06/22/20 documented as of this encounter
--- OUTSIDE RECORDS SUMMARY | 2024-10-30 11:08 | XMS_ITS | Encounter Summary ---
Author Organization [facility] Address [address] [place] [phone] Care Team Providers Care Glass Breaker Name Role Phone Caitlyn Bowie MD Primary Care Provider +1- [phone] Encounter Details Date Type Department Care Team (Late st Contact Info) Description 01/22/2020 Scanned Document [facility] 800 [place] [address] Kerwin Menjivar MD 260 [facility] 3 [place] [address] Social History Tobacco Use Types [...] Office Visit [facility] at [address] [place], [place] [address] Ronald Mills MD [address] [phone] documented as of this encounter Visit Diagnoses Not on filedocumented in this encounter Additional Health Concerns Infection Onset Date Last Indicated Resolved Time COVID-19 03/05/2022 03/05/2022 03/15/2022 7:18 PM EDT Assessment Noted Time PHQ-9 Depression Total Score: 2 11/07/19 19 2:06 PM EDT documented as of this encounter Care Teams Glass Breaker Relationship Specialty Start Date End Date Caitlyn Bowie MD 3400 [facility] 1 [place] [address] PCP - General Internal Medicine 05/06/21 Henry Kelly MD Pulmonary Department [address] [place] [address], [address] [place] [address] Physician Pulmonary Disease 09/06/17 06/22/20 documented as of this encounter
--- OUTSIDE RECORDS SUMMARY | 2024-10-30 11:08 | XMS_ITS | Encounter Summary ---
Author Organization [facility] and [facility] Address [address] [place] [address] Care Team Providers Care Paleobotanist Name Role Phone Caitlyn Bowie MD Primary Care Provider +1- [phone] Encounter Details Date Type Department Care Team (Late st Contact Info) Description 11/29/2019 Scanned Document [facility] Health Information Management [address] [place] [address] External, Provider Social History Tobacco Use Types [...] Office Visit [facility] at [address] [place] [address] Ronald Mills MD [address] [place] [phone] documented as of this encounter Procedures [...] documented as of this encounter Care Teams Paleobotanist Relationship Specialty Start Date End Date Caitlyn Bowie MD 3400 [facility] 1 [place] [address] PCP - General Internal Medicine 05/06/21 Henry Kelly MD Pulmonary Department 175 [facility], [address] [place] [address] Physician Pulmonary Disease 09/06/17 06/22/20 documented as of this encounter
--- OUTSIDE RECORDS SUMMARY | 2024-10-30 11:08 | XMS_ITS | Encounter Summary ---
Author Organization [facility] Address [address] [place] [address] Care Team Providers Care Security Alarm Technician Name Role Phone Caitlyn Bowie MD Primary Care Provider +1- [phone] Encounter Details Date Type Department Care Team (Late st Contact Info) Description 07/26/2012 Abstract [facility] Health Information Management [address] [place] [address] [place], Primary Care [address] [place] [address] Social History Tobacco Use Types Packs/Day Years [...] Office Visit [facility] at [address] [facility] [place] [address] Ronald Mills MD 240 [facility] [address]1 [place] [address] documented as of this encounter Visit Diagnoses Not on filedocumented in this encounter Additional Health Concerns Infection Onset Date Last Indicated Resolved Time COVID-19 03/05/2022 03/05/2022 03/15/2022 7:18 PM EDT documented as of this encounter Care Teams Security Alarm Technician Relationship Specialty Start Date End Date Caitlyn Bowie MD 3400 [facility] 1 [place] [address] PCP - General Internal Medicine 05/06/21 Henry Kelly MD Pulmonary Department 175 [facility], [address] [place] [address] Physician Pulmonary Disease 09/06/17 06/22/20 documented as of this encounter
--- OUTSIDE RECORDS SUMMARY | 2024-10-30 11:08 | XMS_ITS | Encounter Summary ---
Author Organization [facility] and [facility] Address [address] [place] [address] Care Team Providers Care Sweep Molder Name Role Phone Caitlyn Bowie MD Primary Care Provider +1- [phone] Encounter Details Date Type Department Care Team (Late st Contact Info) Description 12/03/2019 Scanned Document [facility] Health Information Management [address] [place] [address] External, Provider Social History Tobacco Use Types [...] [facility] Visit [facility] at [address] [place] [address] Ronald Mills MD [address] [place] [phone] documented as of this encounter Visit Diagnoses Not on filedocumented in this encounter Additional Health Concerns Infection Onset Date Last Indicated Resolved Time COVID-19 03/05/2022 03/05/2022 03/15/2022 7:18 PM EDT Assessment Noted Time PHQ-9 Depression Total Score: 2 11/07/19 19 2:06 PM EDT documented as of this encounter Care Teams Sweep Molder Relationship Specialty Start Date End Date Caitlyn Bowie MD 3400 [facility] Max 1 [place] [address] PCP - General Internal Medicine 05/06/21 Henry Kelly MD Pulmonary Department 175 [facility], [address] [place] [address] Physician Pulmonary Disease 09/06/17 06/22/20 documented as of this encounter
--- OUTSIDE RECORDS SUMMARY | 2024-10-30 11:08 | XMS_ITS | Encounter Summary ---
Author Organization [facility] and [facility] Address [address] [place] [address] Care Team Providers Care Child Welfare Social Worker Name Role Phone Caitlyn Bowie MD Primary Care Provider +1- [phone] Encounter Details Date Type Department Care Team (Late st Contact Info) Description 12/16/2016 Scanned Document [facility] Health Information Management [address] [place] [address] External, Provider Social History Tobacco Use Types [...] Office Visit [facility] at [address] - [address] [place] [address] Ronald Mills MD [address] [place] [phone] documented as of this encounter Procedures [...] as of this encounter Care Teams Child Welfare Social Worker Relationship Specialty Start Date End Date Caitlyn Bowie MD 3400 [facility] 1 [place] [address] PCP - General Internal Medicine 05/06/21 Henry Kelly MD Pulmonary Department [address] [place] [address], [address] [place] [address] Physician Pulmonary Disease 09/06/17 06/22/20 documented as of this encounter
--- OUTSIDE RECORDS SUMMARY | 2024-10-30 11:08 | XMS_ITS | Encounter Summary ---
Author Organization [facility] and [facility] Address [address] [place] [address] Care Team Providers Care Certified Juvenile Probation Officer Name Role Phone Caitlyn Bowie MD Primary Care Provider +1- [phone] Encounter Details Date Type Department Care Team (Late Contact Info) Description 01/28/2013 Scanned Document [facility] at [address] [address] Solo Henry MD [address] [place] [phone] Social History Tobacco Use Types Packs/Day [...] PM EDT Office Visit Hematology Program at [address] - [address] [place] [address] Ronald Mills MD [address] [phone] documented as of this encounter Visit Diagnoses Not on filedocumented in this encounter Additional Health Concerns Infection Onset Date Last Indicated Resolved Time COVID-19 03/05/2022 03/05/2022 03/15/2022 7:18 PM EDT documented as of this encounter Care Teams Certified Juvenile Probation Officer Relationship Specialty Start Date End Date Caitlyn Bowie MD 3400 [facility] 1 [place] [address] PCP - General Internal Medicine 05/06/21 Henry Kelly MD Pulmonary Department 175 [facility], [address] [place] [address] Physician Pulmonary Disease 09/06/17 06/22/20 documented as of this encounter
--- OUTSIDE RECORDS SUMMARY | 2024-10-30 11:08 | XMS_ITS | Encounter Summary ---
Author Organization [facility] and [facility] Address [address] [place] [address] Care Team Providers Care Taker Off Name Role Phone Caitlyn Bowie MD Primary Care Provider +1- [phone] Encounter Details Date Type Department Care Team (Late Contact Info) Description 08/29/2019 Scanned Document [facility] at [address] [address] External, Provider Social History Tobacco Use Types [...] EDT Office Visit Hematology Program at [address] - [address] [place], [place] [address] Ronald Mills MD [address] [place] [phone] documented as of this encounter Procedures [...] documented as of this encounter Care Teams Taker Off Relationship Specialty Start Date End Date Caitlyn Bowie MD 3400 [facility] 1 [place] [address] PCP - General Internal Medicine 05/06/21 Henry Kelly MD Pulmonary Department 175 [facility], [address] [place] [address] Physician Pulmonary Disease 09/06/17 06/22/20 documented as of this encounter
--- OUTSIDE RECORDS SUMMARY | 2024-10-30 11:08 | XMS_ITS | Encounter Summary ---
Author Organization [facility] and [facility] Address [address] [place] [address] Care Team Providers Care Service Consultant Name Role Phone Caitlyn Bowie MD Primary Care Provider +1- [phone] Encounter Details Date Type Department Care Team (Late st Contact Info) Description 07/01/2019 Scanned Document Onco-Oncology Program at [address] [address] Norma Renee MD [address] [place] [phone] Social History Tobacco Use Types Packs/Day [...] EDT Office Visit Hematology Program at [address] - [address] [place] [address] Ronald Mills MD [address] [phone] documented as of this encounter Visit Diagnoses Not on filedocumented in this encounter Additional Health Concerns Infection Onset Date Last Indicated Resolved Time COVID-19 03/05/2022 03/05/2022 03/15/2022 7:18 PM EDT Assessment Noted Time PHQ-9 Depression Total Score: 2 11/07/19 19 2:06 PM EDT documented as of this encounter Care Teams Service Consultant Relationship Specialty Start Date End Date Caitlyn Bowie MD 3400 [facility] 1 [place] [address] PCP - General Internal Medicine 05/06/21 Henry Kelly MD Pulmonary Department 175 [facility], [address] [place] [address] Physician Pulmonary Disease 09/06/17 06/22/20 documented as of this encounter
--- OUTSIDE RECORDS SUMMARY | 2024-10-30 11:08 | XMS_ITS | Encounter Summary ---
Author Organization [facility] and [facility] Address [address] [place] [address] Care Team Providers Care Lamination Operator Name Role Phone Caitlyn Bowie MD Primary Care Provider +1- [phone] Encounter Details Date Type Department Care Team (Late st Contact Info) Description 12/16/2016 Scanned Document [facility] Health Information Management [address] [place] [address] External, Provider Social History Tobacco Use Types [...] Office Visit [facility] at [address] - [address] [place] [address] Ronald Mills MD [address] [place] [phone] documented as of this encounter Procedures [...] documented as of this encounter Care Teams Lamination Operator Relationship Specialty Start Date End Date Caitlyn Bowie MD 3400 [facility] 1 [place] [address] PCP - General Internal Medicine 05/06/21 Henry Kelly MD Pulmonary Department 175 [facility], [address] [place] [address] Physician Pulmonary Disease 09/06/17 06/22/20 documented as of this encounter
--- OUTSIDE RECORDS SUMMARY | 2024-10-30 11:08 | XMS_ITS | Encounter Summary ---
Author Organization [facility] and [facility] Address [address] [place] [address] Care Team Providers Care Turpentine Distiller Name Role Phone Caitlyn Bowie MD Primary Care Provider +1- [phone] Encounter Details Date Type Department Care Team (Late Contact Info) Description 09/09/2020 Scanned Document [facility] Health Information Management [address] [place] [address] External, Provider Social History Tobacco Use Types [...] Office Visit [facility] at [address] - [address] [place] [address] Ronald Mills MD [address] [place] [phone] documented as of this encounter Procedures [...] documented as of this encounter Care Teams Turpentine Distiller Relationship Specialty Start Date End Date Caitlyn Bowie MD [address] [address] PCP - General Internal Medicine 05/06/21 documented as of this encounter
--- OUTSIDE RECORDS SUMMARY | 2024-10-30 11:08 | XMS_ITS | Encounter Summary ---
Author Organization [facility] and [facility] Address [address] [place] [address] Care Team Providers Care Guest Relations Executive Name Role Phone Caitlyn Bowie MD Primary Care Provider +1- [phone] Encounter Details Date Type Department Care Team (Late Contact Info) Description 11/26/2019 Scanned Document [facility] at [address] [address] External, Provider Social History Tobacco Use Types [...] EDT Office Visit Hematology Program at [address] - [address] [place], [place] [address] Ronald Mills MD [address] [place] [phone] documented as of this encounter Procedures [...] of this encounter Care Teams Guest Relations Executive Relationship Specialty Start Date End Date Caitlyn Bowie MD 3400 [facility] 1 [place] [address] PCP - General Internal Medicine 05/06/21 Henry Kelly MD Pulmonary Department 175 [facility], [address] [place] [address] Physician Pulmonary Disease 09/06/17 06/22/20 documented as of this encounter
--- OUTSIDE RECORDS SUMMARY | 2024-10-30 11:08 | XMS_ITS | Encounter Summary ---
Author Organization [facility] Address [address] [place] [address] Care Team Providers Care Non Garment Sewing Machine Operator Name Role Phone Caitlyn Bowie MD Primary Care Provider +1- [phone] Encounter Details Date Type Department Care Team (Late Contact Info) Description 08/16/2012 Abstract [facility] Health Information Management [address] [place] [address] [place], Primary Care [address] [place] [address] Social History Tobacco Use Types Packs/Day Years [...] Office Visit [facility] at [address] - [address] [place] [address] Ronald Mills MD [address] [place] [address] documented as of this encounter Visit Diagnoses Not on filedocumented in this encounter Additional Health Concerns Infection Onset Date Last Indicated Resolved Time COVID-19 03/05/2022 03/05/2022 03/15/2022 7:18 PM EDT documented as of this encounter Care Teams Non Garment Sewing Machine Operator Relationship Specialty Start Date End Date Caitlyn Bowie MD 3400 [facility] 1 [place] [address] PCP - General Internal Medicine 05/06/21 Henry Kelly MD Pulmonary Department [address] [place] [address], [address] [place] [address] Physician Pulmonary Disease 09/06/17 06/22/20 documented as of this encounter
--- OUTSIDE RECORDS SUMMARY | 2024-10-30 11:08 | XMS_ITS | Clinical Summary ---
Author Organization [facility] Address [address] [place] [address] Care Team Providers Care Ski Topper Name Role Phone Brennan Burnett MD Primary Care Provider [phone] Allergies Active Allergy Reactions Criticality Noted Date [...] Take by mouth. 0 Active EPINEPHrine (EpiPen 2-Dainel) 0.3 MG/0.3ML SOAJ 0.3 mg. 0 09/16/2015 [...] age to complete this topic Care Teams Ski Topper Relationship Specialty Start Date End Date Brennan Burnett MD [address] [place] [address] PCP - General Internal Medicine 07/06/20
--- OUTSIDE RECORDS SUMMARY | 2024-10-30 11:08 | XMS_ITS | Encounter Summary ---
Author Organization [facility] and [facility] Address [address] [place] [address] Care Team Providers Care Cane Weigher Name Role Phone Caitlyn Bowie MD Primary Care Provider +1- [phone] Encounter Details Date Type Department Care Team (Late st Contact Info) Description 12/16/2016 Scanned Document [facility] Health Information Management [address] [place] [address] External, Provider Social History Tobacco Use Types [...] Office Visit [facility] at [address] - [address] [place] [address] Ronald Mills MD [address] [place] [phone] documented as of this encounter Procedures [...] of this encounter Care Teams Cane Weigher Relationship Specialty Start Date End Date Caitlyn Bowie MD 3400 [facility] 1 [place] [address] PCP - General Internal Medicine 05/06/21 Henry Kelly MD Pulmonary Department 175 [facility], [address] [place] [address] Physician Pulmonary Disease 09/06/17 06/22/20 documented as of this encounter
--- OUTSIDE RECORDS SUMMARY | 2024-10-30 11:08 | XMS_ITS | Encounter Summary ---
Author Organization [facility] Address [address] [place] [address] Care Team Providers Care Welding Equipment Repairer Name Role Phone Caitlyn Bowie MD Primary Care Provider +1- [phone] Encounter Details Date Type Department Care Team (Late st Contact Info) Description 04/26/2017 Scanned Document Cardiovascular Medicine at [address] [place] [phone] Norma Renee MD [address] [place] [phone] Social History Tobacco Use Types Packs/Day Years [...] EDT Office Visit Hematology Program at [address] - [address] [address] Ronald Mills MD [address] [place] [phone] documented as of this encounter Visit Diagnoses Not on filedocumented in this encounter Additional Health Concerns Infection Onset Date Last Indicated Resolved Time COVID-19 03/05/2022 03/05/2022 03/15/2022 7:18 PM EDT documented as of this encounter Care Teams Welding Equipment Repairer Relationship Specialty Start Date End Date Caitlyn Bowie MD 3400 [facility] Max 1 [place] [address] PCP - General Internal Medicine 05/06/21 Henry Kelly MD Pulmonary Department 175 [facility], [address] [place] [address] Physician Pulmonary Disease 09/06/17 06/22/20 documented as of this encounter
--- OUTSIDE RECORDS SUMMARY | 2024-10-30 11:08 | XMS_ITS | Encounter Summary ---
Author Organization [facility] and [facility] Address [address] [place] [address] Care Team Providers Care Microstrategy Architect Developer Name Role Phone Caitlyn Bowie MD Primary Care Provider +1- [phone] Encounter Details Date Type Department Care Team (Late st Contact Info) Description 12/16/2016 Scanned Document [facility] Health Information Management [address] [place] [address] External, Provider Social History Tobacco Use Types [...] Office Visit [facility] at [address] - [address] [place] [address] Ronald Mills MD [address] [place] [phone] documented as of this encounter Visit Diagnoses Not on filedocumented in this encounter Additional Health Concerns Infection Onset Date Last Indicated Resolved Time COVID-19 03/05/2022 03/05/2022 03/15/2022 7:18 PM EDT documented as of this encounter Care Teams Microstrategy Architect Developer Relationship Specialty Start Date End Date Caitlyn Bowie MD 3400 [facility] 1 [place] [address] PCP - General Internal Medicine 05/06/21 Henry Kelly MD Pulmonary Department 175 [facility], [address] [place] [address] Physician Pulmonary Disease 09/06/17 06/22/20 documented as of this encounter
--- OUTSIDE RECORDS SUMMARY | 2024-10-30 11:08 | XMS_ITS | Encounter Summary ---
Author Organization [facility] and [facility] Address [address] [place] [address] Care Team Providers Care Game Breeding Farm Manager Name Role Phone Caitlyn Bowie MD Primary Care Provider +1- [phone] Encounter Details Date Type Department Care Team (Late st Contact Info) Description 06/27/2019 Scanned Document Onco-Oncology Program at [address] [address] Norma Renee MD [address] [place] [phone] Social History Tobacco Use Types Packs/Day [...] PM EDT Office Visit Hematology Program at [address] - [address] [place] [address] Ronald Mills MD [address] [phone] documented as of this encounter Visit Diagnoses Not on filedocumented in this encounter Additional Health Concerns Infection Onset Date Last Indicated Resolved Time COVID-19 03/05/2022 03/05/2022 03/15/2022 7:18 PM EDT Assessment Noted Time PHQ-9 Depression Total Score: 2 11/07/19 19 2:06 PM EDT documented as of this encounter Care Teams Game Breeding Farm Manager Relationship Specialty Start Date End Date Caitlyn Bowie MD 3400 [facility] 1 [place] [address] PCP - General Internal Medicine 05/06/21 Henry Kelly MD Pulmonary Department 175 [facility], [address] [place] [address] Physician Pulmonary Disease 09/06/17 06/22/20 documented as of this encounter
--- OUTSIDE RECORDS SUMMARY | 2024-10-30 11:08 | XMS_ITS | Encounter Summary ---
Author Organization [facility] and [facility] Address [address] [place] [address] Care Team Providers Care Family Medicine Chair Name Role Phone Caitlyn Bwoie MD Primary Care Provider +1- [phone] Encounter Details Date Type Department Care Team (Late st Contact Info) Description 07/12/2019 Scanned Document Onco-Oncology Program at [address] [address] Norma Renee MD [address] [place] [phone] Social History Tobacco Use Types Packs/Day [...] Hematology Program at [address] - [address] [place] [address] Ronald Mills MD [address] [phone] documented as of this encounter Visit Diagnoses Not on filedocumented in this encounter Additional Health Concerns Infection Onset Date Last Indicated Resolved Time COVID-19 03/05/2022 03/05/2022 03/15/2022 7:18 PM EDT Assessment Noted Time PHQ-9 Depression Total Score: 2 11/07/19 19 2:06 PM EDT documented as of this encounter Care Teams Family Medicine Chair Relationship Specialty Start Date End Date Caitlyn Bowie MD 3400 [facility] 1 [place] [address] PCP - General Internal Medicine 05/06/21 Henry Kelly MD Pulmonary Department 175 [facility], [address] [place] [address] Physician Pulmonary Disease 09/06/17 06/22/20 documented as of this encounter
--- OUTSIDE RECORDS SUMMARY | 2024-10-30 11:08 | XMS_ITS | Encounter Summary ---
Author Organization [facility] and [facility] Address [address] [place] [address] Care Team Providers Care Tearer Press Clipping Name Role Phone Caitlyn Bowie MD Primary Care Provider +1- [phone] Encounter Details Date Type Department Care Team (Late st Contact Info) Description 09/07/2020 Scanned Document Cardiovascular Medicine at [address] [place] [phone] Norma Renee MD [address] [place] [phone] Social History Tobacco Use Types Packs/Day [...] EDT Office Visit Hematology Program at [address] - [address] [phone] Ronald Mills MD [address] [phone] documented as of this encounter Visit Diagnoses Not on filedocumented in this encounter Additional Health Concerns Infection Onset Date Last Indicated Resolved Time COVID-19 03/05/2022 03/05/2022 03/15/2022 7:18 PM EDT Assessment Noted Time PHQ-9 Depression Total Score: 2 11/07/19 19 2:06 PM EDT documented as of this encounter Care Teams Tearer Press Clipping Relationship Specialty Start Date End Date Caitlyn Bowie MD [address] [address] PCP - General Internal Medicine 05/06/21 documented as of this encounter
--- OUTSIDE RECORDS SUMMARY | 2024-10-30 11:09 | XMS_ITS | Encounter Summary ---
Author Organization [facility] and [facility] Address [address] [place] [address] Care Team Providers Care Faculty Dean Name Role Phone Caitlyn Bowie MD Primary Care Provider +1- [phone] Encounter Details Date Type Department Care Team (Late st Contact Info) Description 02/24/2021 Scanned Document INTERFACE DEFAULT [address] [place] [address] System, Provider Not In Social History Tobacco [...] Office Visit [facility] at [address] - [address] [place] [address] Ronald Mills MD [address] [place] [phone] documented as of this encounter Procedures [...] documented as of this encounter Care Teams Faculty Dean Relationship Specialty Start Date End Date Caitlyn Bowie MD [address] [address] PCP - General Internal Medicine 05/06/21 documented as of this encounter
--- OUTSIDE RECORDS SUMMARY | 2024-10-30 11:09 | XMS_ITS | Encounter Summary ---
Author Organization [facility] and [facility] Address [address] [place] [address] Care Team Providers Care Railroad Cook Name Role Phone Caitlyn Bowie MD Primary Care Provider +1- [phone] Encounter Details Date Type Department Care Team (Late st Contact Info) Description 02/15/2021 Scanned Document INTERFACE DEFAULT [address] [place] [address] System, Provider Not In Social History Tobacco [...] Office Visit [facility] at [address] [place] [address] Ronald Mills MD [address] [place] [phone] documented as of this encounter Visit Diagnoses Not on filedocumented in this encounter Additional Health Concerns Infection Onset Date Last Indicated Resolved Time COVID-19 03/05/2022 03/05/2022 03/15/2022 7:18 PM EDT Assessment Noted Time PHQ-9 Depression Total Score: 2 11/07/19 19 2:06 PM EDT documented as of this encounter Care Teams Railroad Cook Relationship Specialty Start Date End Date Caitlyn Bowie MD [address] [address] PCP - General Internal Medicine 05/06/21 documented as of this encounter
--- OUTSIDE RECORDS SUMMARY | 2024-10-30 11:09 | XMS_ITS | Encounter Summary ---
Author Organization [facility] and [facility] Address [address] [place] [address] Care Team Providers Care Mine Inspector Name Role Phone Caitlyn Bowie MD Primary Care Provider +1- [phone] Encounter Details Date Type Department Care Team (Late st Contact Info) Description 08/21/2017 Scanned Document [facility] Health Information Management [address] [place] [phone] External, Provider Social History Tobacco Use Types [...] Office Visit [facility] at [address] - [address] [place] [address] Ronald Mills MD [address] [place] [phone] documented as of this encounter Procedures [...] as of this encounter Care Teams Mine Inspector Relationship Specialty Start Date End Date Caitlyn Bowie MD 3400 [facility] Max 1 [place] [address] PCP - General Internal Medicine 05/06/21 Henry Kelly MD Pulmonary Department 175 [facility], [address] [place] [address] Physician Pulmonary Disease 09/06/17 06/22/20 documented as of this encounter
--- OUTSIDE RECORDS SUMMARY | 2024-10-30 11:09 | XMS_ITS | Encounter Summary ---
Author Organization [facility] and [facility] Address [address] [place] [address] Care Team Providers Care Funeral Home Makeup Artist Name Role Phone Caitlyn Bowie MD Primary Care Provider +1- [phone] Encounter Details Date Type Department Care Team (Late st Contact Info) Description 08/23/2017 Scanned Document [facility] Health Information Management [address] [place] [phone] External, Provider Social History Tobacco Use Types [...] [facility] [address] [place] [address] Ronald Mills MD [address] [place] [phone] documented as of this encounter Procedures [...] of this encounter Care Teams Funeral Home Makeup Artist Relationship Specialty Start Date End Date Caitlyn Bowie MD 3400 [facility] [address] [place] [address] PCP - General Internal Medicine 05/06/21 Henry Kelly MD Pulmonary Department 175 [facility], [address] [place] [address] Physician Pulmonary Disease 09/06/17 06/22/20 documented as of this encounter
--- OUTSIDE RECORDS SUMMARY | 2024-10-30 11:09 | XMS_ITS | Encounter Summary ---
Author Organization [facility] and [facility] Address [address] [place] [address] Care Team Providers Care Jailkeeper Name Role Phone Caitlyn Bowie MD Primary Care Provider +1- [phone] Encounter Details Date Type Department Care Team (Late st Contact Info) Description 11/29/2017 Scanned Document [facility] Health Information Management [address] [place] [address] External, Provider Social History Tobacco Use Types [...] [facility] Visit [facility] at [address] - [address] [place] [address] Ronald Mills MD [address] [place] [phone] documented as of this encounter Procedures [...] documented as of this encounter Care Teams Jailkeeper Relationship Specialty Start Date End Date Caitlyn Bowie MD 3400 [facility] [address] [place] [address] PCP - General Internal Medicine 05/06/21 Henry Kelly MD Pulmonary Department 175 [facility], [address] [place] [address] Physician Pulmonary Disease 09/06/17 06/22/20 documented as of this encounter
--- OUTSIDE RECORDS SUMMARY | 2024-10-30 11:09 | XMS_ITS | Encounter Summary ---
Author Organization [facility] and [facility] Address [address] [place] [address] Care Team Providers Care Solar Panel Installer Name Role Phone Caitlyn Bowie MD Primary Care Provider +1- [phone] Encounter Details Date Type Department Care Team (Late st Contact Info) Description 04/10/2021 Scanned Document INTERFACE DEFAULT [address] [place] [address] System, Provider Not In Social History Tobacco [...] [facility] at [address] - [address] [place] [address] Ronald Mills MD [address] [place] [phone] documented as of this encounter Procedures [...] of this encounter Care Teams Solar Panel Installer Relationship Specialty Start Date End Date Caitlyn Bowie MD [facility] [address] [address] PCP - General Internal Medicine 05/06/21 documented as of this encounter
--- OUTSIDE RECORDS SUMMARY | 2024-10-30 11:09 | XMS_ITS | Encounter Summary ---
Author Organization [facility] and [facility] Address [address] [place] [address] Care Team Providers Care Inspector Assembly Name Role Phone Caitlyn Bowie MD Primary Care Provider +1- [phone] Encounter Details Date Type Department Care Team (Late Contact Info) Description 09/01/2017 Scanned Document [facility] Health Information Management [address] [place] [address] External, Provider Social History Tobacco Use Types [...] [facility] at [address] [place] [address] Ronald Mills MD [address] [place] [phone] documented as of this encounter Procedures [...] as of this encounter Care Teams Inspector Assembly Relationship Specialty Start Date End Date Caitlyn Bowie MD 3400 [facility] 1 [place] [address] PCP - General Internal Medicine 05/06/21 Henry Kelly MD Pulmonary Department 175 [facility], [address] [place] [address] Physician Pulmonary Disease 09/06/17 06/22/20 documented as of this encounter
--- OUTSIDE RECORDS SUMMARY | 2024-10-30 11:09 | XMS_ITS | Encounter Summary ---
Author Organization [facility] and [facility] Address [address] [place] [address] Care Team Providers Care Hand Therapist Name Role Phone Caitlyn Bowie MD Primary Care Provider +1- [phone] Encounter Details Date Type Department Care Team (Late st Contact Info) Description 01/26/2018 Scanned Document [facility] Health Information Management [address] [place] [address] External, Provider Social History Tobacco Use Types [...] [facility] Visit [facility] at [address] [place] [address] Ronald Mills MD [address] [place] [phone] documented as of this encounter Procedures [...] MD 3400 [facility] [address] [place] [address] PCP - General Internal Medicine 05/06/21 Henry Kelly MD Pulmonary Department 175 [facility], [address] [place] [address] Physician Pulmonary Disease 09/06/17 06/22/20 documented as of this encounter
--- OUTSIDE RECORDS SUMMARY | 2024-10-30 11:09 | XMS_ITS | Encounter Summary ---
Author Organization [facility] and [facility] Address [address] [place] [address] Care Team Providers Care Plexiglas Former Name Role Phone Caitlyn Bowie MD Primary Care Provider +1- [phone] Encounter Details Date Type Department Care Team (Late st Contact Info) Description 03/15/2021 Scanned Document INTERFACE DEFAULT [address] [place] [address] System, Provider Not In Social History Tobacco [...] [facility] at [address] [place] [address] Ronald Mills MD [address] [place] [phone] documented as of this encounter Procedures [...] documented as of this encounter Care Teams Plexiglas Former Relationship Specialty Start Date End Date Caitlyn Bowie MD [address] [address] PCP - General Internal Medicine 05/06/21 documented as of this encounter
--- OUTSIDE RECORDS SUMMARY | 2024-10-30 11:09 | XMS_ITS | Encounter Summary ---
Author Organization [facility] and [facility] Address [address] [place] [address] Care Team Providers Care Independent Marketing Consultant Name Role Phone Caitlyn Bwoie MD Primary Care Provider +1- [phone] Encounter Details Date Type Department Care Team (Late st Contact Info) Description 02/28/2021 Scanned Document INTERFACE DEFAULT [address] [place] [address] System, Provider Not In Social History Tobacco [...] [facility] at [address] [place] [address] Ronald Mills MD [address] [place] [phone] documented as of this encounter Procedures [...] documented as of this encounter Care Teams Independent Marketing Consultant Relationship Specialty Start Date End Date Caitlyn Bowie MD [address] [address] PCP - General Internal Medicine 05/06/21 documented as of this encounter
--- OUTSIDE RECORDS SUMMARY | 2024-10-30 11:09 | XMS_ITS | Encounter Summary ---
Author Organization [facility] and [facility] Address [address] [place] [address] Care Team Providers Care Talent Partner Name Role Phone Caitlyn Bowie MD Primary Care Provider +1- [phone] Encounter Details Date Type Department Care Team (Late Contact Info) Description 04/11/2021 Scanned Document [facility] Health Information Management [address] [place] [phone] External, Provider Social History Tobacco Use Types [...] [facility] Visit [facility] at [address] [place] [address] Ronald Mills MD [address] [place] [phone] documented as of this encounter Visit Diagnoses Not on filedocumented in this encounter Additional Health Concerns Infection Onset Date Last Indicated Resolved Time COVID-19 03/05/2022 03/05/2022 03/15/2022 7:18 PM EDT Assessment Noted Time PHQ-9 Depression Total Score: 2 11/07/19 19 2:06 PM EDT documented as of this encounter Care Teams Talent Partner Relationship Specialty Start Date End Date Caitlyn Bowie MD [address] [address] PCP - General Internal Medicine 05/06/21 documented as of this encounter
--- OUTSIDE RECORDS SUMMARY | 2024-10-30 11:09 | XMS_ITS | Encounter Summary ---
Author Organization [facility] and [facility] Address [address] [place] [address] Care Team Providers Care Thread Checker Name Role Phone Caitlyn Bowie MD Primary Care Provider +1- [phone] Encounter Details Date Type Department Care Team (Late st Contact Info) Description 01/26/2018 Scanned Document [facility] Health Information Management [address] [place] [address] External, Provider Social History Tobacco Use Types [...] [facility] Visit [facility] at [address] [place] [address] Ronald Mills MD [address] [place] [phone] documented as of this encounter Visit Diagnoses Not on filedocumented in this encounter Additional Health Concerns Infection Onset Date Last Indicated Resolved Time COVID-19 03/05/2022 03/05/2022 03/15/2022 7:18 PM EDT documented as of this encounter Care Teams Thread Checker Relationship Specialty Start Date End Date Caitlyn Bowie MD 3400 [facility] 1 [place] [address] PCP - General Internal Medicine 05/06/21 Henry Kelly MD Pulmonary Department [address] [place] [address], [address] [place] [address] Physician Pulmonary Disease 09/06/17 06/22/20 documented as of this encounter
--- OUTSIDE RECORDS SUMMARY | 2024-10-30 11:09 | XMS_ITS | Encounter Summary ---
Author Organization [facility] and [facility] Address [address] [place] [address] Care Team Providers Care Wrapper Sheeter Name Role Phone Caitlyn Bowie MD Primary Care Provider +1- [phone] Encounter Details Date Type Department Care Team (Late st Contact Info) Description 04/02/2021 Scanned Document INTERFACE DEFAULT [address] [place] [address] System, Provider Not In Social History Tobacco [...] [facility] Visit [facility] at [address] - [address] [place] [address] Ronald Mills MD [address] [place] [phone] documented as of this encounter Procedures [...] documented as of this encounter Care Teams Wrapper Sheeter Relationship Specialty Start Date End Date Caitlyn Bowie MD [address] [address] PCP - General Internal Medicine 05/06/21 documented as of this encounter
--- OUTSIDE RECORDS SUMMARY | 2024-10-30 11:09 | XMS_ITS | Encounter Summary ---
Author Organization [facility] Address [address] [place] [address] Care Team Providers Care Box Finisher Name Role Phone Caitlyn Bowie MD Primary Care Provider +1- [phone] Encounter Details Date Type Department Care Team (Late st Contact Info) Description 04/21/2021 Scanned Document INTERFACE DEFAULT [address] [place] [address] System, Provider Not In Social History Tobacco [...] Office Visit [facility] at [address] - [address] [place] [address] Ronald Mills MD [address] [place] [phone] documented as of this encounter Procedures [...] as of this encounter Care Teams Box Finisher Relationship Specialty Start Date End Date Caitlyn Bowie MD [address] [address] PCP - General Internal Medicine 05/06/21 documented as of this encounter
--- OUTSIDE RECORDS SUMMARY | 2024-10-30 11:09 | XMS_ITS | Encounter Summary ---
Author Organization [facility] and [facility] Address [address] [place] [address] Care Team Providers Care Monitoring Engineer Name Role Phone Caitlyn Bowie MD Primary Care Provider +1- [phone] Encounter Details Date Type Department Care Team (Late st Contact Info) Description 03/24/2021 Scanned Document INTERFACE DEFAULT [address] [place] [address] System, Provider Not In Social History Tobacco [...] [facility] Visit [facility] at [address] [place] [address] Ronald Mills MD [address] [place] [phone] documented as of this encounter Visit [...] End Date Caitlyn Bowie MD [address] [address] PCP - General Internal Medicine 05/06/21 documented as of this encounter
--- OUTSIDE RECORDS SUMMARY | 2024-10-30 11:09 | XMS_ITS | Encounter Summary ---
Author Organization [facility] and [facility] Address [address] [place] [address] Care Team Providers Care Pumping Station Supervisor Name Role Phone Caitlyn Bowie MD Primary Care Provider +1- [phone] Encounter Details Date Type Department Care Team (Late st Contact Info) Description 03/23/2021 Scanned Document INTERFACE DEFAULT [address] [place] [address] System, Provider Not In Social History Tobacco [...] [facility] Visit [facility] at [address] - [address] [place] [address] Ronald Mills MD [address] [place] [phone] documented as of this encounter Procedures [...] documented as of this encounter Care Teams Pumping Station Supervisor Relationship Specialty Start Date End Date Caitlyn Bowie MD [address] [address] PCP - General Internal Medicine 05/06/21 documented as of this encounter
--- OUTSIDE RECORDS SUMMARY | 2024-10-30 11:09 | XMS_ITS | Encounter Summary ---
Author Organization [facility] and [facility] Address [address] [place] [address] Care Team Providers Care Route Sales Driver Name Role Phone Caitlyn Bowie MD Primary Care Provider +1- [phone] Encounter Details Date Type Department Care Team (Late st Contact Info) Description 03/08/2021 Scanned Document INTERFACE DEFAULT [address] [place] [address] System, Provider Not In Social History Tobacco [...] [facility] Visit [facility] at [address] - [address] [place] [address] Ronald Mills MD [address] [place] [phone] documented as of this encounter Procedures [...] documented as of this encounter Care Teams Route Sales Driver Relationship Specialty Start Date End Date Caitlyn Bowie MD [address] [address] PCP - General Internal Medicine 05/06/21 documented as of this encounter
--- OUTSIDE RECORDS SUMMARY | 2024-10-30 11:09 | XMS_ITS | Encounter Summary ---
Author Organization [facility] and [facility] Address [address] [place] [address] Care Team Providers Care Manager Membership Name Role Phone Caitlyn Bowie MD Primary Care Provider +1- [phone] Encounter Details Date Type Department Care Team (Late st Contact Info) Description 08/09/2017 Scanned Document [facility] at [address] [place] [address] System, Provider Not In Social History Tobacco [...] EDT Office Visit H[facility]ology Program at [address] [address] Ronald Mills MD [address] [place] [phone] documented as of this encounter Procedures [...] as of this encounter Care Teams Manager Membership Relationship Specialty Start Date End Date Caitlyn Bowie MD 3400 [facility] 1 [place] [address] PCP - General Internal Medicine 05/06/21 Henry Kelly MD Pulmonary Department 175 [facility], [address] [place] [address] Physician Pulmonary Disease 09/06/17 06/22/20 documented as of this encounter
--- OUTSIDE RECORDS SUMMARY | 2024-10-30 11:09 | XMS_ITS | Encounter Summary ---
Author Organization [facility] and [facility] Address [address] [place] [address] Care Team Providers Care Aerodynamics Teacher Name Role Phone Caitlyn Bowie MD Primary Care Provider +1- [phone] Encounter Details Date Type Department Care Team (Late st Contact Info) Description 04/22/2021 Scanned Document INTERFACE DEFAULT [address] [place] [address] System, Provider Not In Social History Tobacco [...] Office Visit [facility] at [address] [place] [address] Ronald Mills MD [address] [place] [phone] documented as of this encounter Procedures [...] documented as of this encounter Care Teams Aerodynamics Teacher Relationship Specialty Start Date End Date Caitlyn Bowie MD [address] [address] PCP - General Internal Medicine 05/06/21 documented as of this encounter
--- OUTSIDE RECORDS SUMMARY | 2024-10-30 11:09 | XMS_ITS | Encounter Summary ---
Author Organization [facility] and [facility] Address [address] [place] [address] Care Team Providers Care Ferry Engineer Name Role Phone Caitlyn Bowie MD Primary Care Provider +1- [phone] Encounter Details Date Type Department Care Team (Late st Contact Info) Description 04/16/2021 Scanned Document INTERFACE DEFAULT [address] [place] [address] System, Provider Not In Social History Tobacco [...] Office Visit [facility] at [address] [place] [address] Ronald Mills MD [address] [place] [phone] documented as of this encounter Procedures [...] documented as of this encounter Care Teams Ferry Engineer Relationship Specialty Start Date End Date Caitlyn Bowie MD [facility] [address] [address] PCP - General Internal Medicine 05/06/21 documented as of this encounter
--- OUTSIDE RECORDS SUMMARY | 2024-10-30 11:09 | XMS_ITS | Encounter Summary ---
Author Organization [facility] and [facility] Address [address] [place] [address] Care Team Providers Care Behavioral Health Rn Name Role Phone Caitlyn Bowie MD Primary Care Provider +1- [phone] Encounter Details Date Type Department Care Team (Late st Contact Info) Description 03/16/2021 Scanned Document INTERFACE DEFAULT [address] [place] [address] System, Provider Not In Social History Tobacco [...] Office Visit [facility] at [address] [place] [address] Ronald Mills MD [address] [place] [phone] documented as of this encounter Visit Diagnoses Not on filedocumented in this encounter Additional Health Concerns Infection Onset Date Last Indicated Resolved Time COVID-19 03/05/2022 03/05/2022 03/15/2022 7:18 PM EDT Assessment Noted Time PHQ-9 Depression Total Score: 2 11/07/19 19 2:06 PM EDT documented as of this encounter Care Teams Behavioral Health Rn Relationship Specialty Start Date End Date Caitlyn Bowie MD [address] [address] PCP - General Internal Medicine 05/06/21 documented as of this encounter
--- OUTSIDE RECORDS SUMMARY | 2024-10-30 11:09 | XMS_ITS | Encounter Summary ---
Author Organization [facility] and [facility] Address [address] [place] [address] Care Team Providers Care Screen Printing Cloth Spreader Name Role Phone Caitlyn Bowie MD Primary Care Provider +1- [phone] Encounter Details Date Type Department Care Team (Late st Contact Info) Description 04/11/2021 Scanned Document INTERFACE DEFAULT [address] [place] [address] System, Provider Not In Social History Tobacco [...] Office Visit [facility] at [address] [place] [address] Ronald Mills MD [address] [place] [phone] documented as of this encounter Procedures [...] End Date Caitlyn Bowie MD [address] [address] PCP - General Internal Medicine 05/06/21 documented as of this encounter
--- OUTSIDE RECORDS SUMMARY | 2024-10-30 11:09 | XMS_ITS | Encounter Summary ---
Author Organization [facility] and [facility] Address [address] [place] [address] Care Team Providers Care Check Writing Machine Operator Name Role Phone Caitlyn Bowie MD Primary Care Provider +1- [phone] Encounter Details Date Type Department Care Team (Late st Contact Info) Description 03/14/2021 Scanned Document INTERFACE DEFAULT [address] [place] [address] System, Provider Not In Social History Tobacco [...] Office Visit [facility] at [address] [place] [address] Ronald Mills MD [address] [place] [phone] documented as of this encounter Procedures [...] Date Caitlyn Bowie MD [facility] [address] [address] PCP - General Internal Medicine 05/06/21 documented as of this encounter
--- OUTSIDE RECORDS SUMMARY | 2024-10-30 11:09 | XMS_ITS | Patient Health Record ---
Author Organization [facility] Address [address] [place] [address] Care Team Providers Care Family Services Assistant Name Role Phone EVELIN RAMSAY Primary Care Provider Yenny Hou Unavailable [phone] Allergies Allergen (clinical drug ingredient) Drug/Non Drug [...] UROBILINOGEN Neg BILIRUBIN Neg BLOOD Neg Urinalysis, Complete-[id number] Reviewed date:05/04/2024 11:35:42 PM Interpretation: Performing Lab:[facility], [address] [facility], [place], Phone - [phone], Director - Arely Notes/Report: Specific [place] 1.009 1.005-1.030 pH 6.5 5.0-7.5 Urine-Color Yellow [...] Bacteria None seen None seen/Few Urine Culture, Routine-[id number] Reviewed date:05/04/2024 11:35:22 PM Interpretation: Performing Lab:[facility], [address] [place] [address], Phone - [phone], Director - MDJoy Notes/Report: Urine Culture, Routine Final report Result 1 Culture shows less than 10,000 colony forming units of bacteria per milliliter of urine. This colony count is not generally considered to be clinically significant. PDF Report Reviewed date:05/04/2024 11:35:04 PM Interpretation: Performing Lab:[facility], [address] [place] [address], Phone - [phone], Director - MDBrenda Notes/Report: Urinalysis Reviewed date:07/09/2024 [...] Synthroid 25MCG 1 ORAL daily for -3 [facility] 06/10/2014 Active ZyrTEC Allergy 10MG 1 ORAL [...] 1 ORAL at bedtime fo r -3 [facility] 06/10/2014 Active Meclizine HCl 25 MG 1 tablet as needed Orally [facility] 06/10/2014 Active Albuterol Sulfate (2.5 MG/3ML)0.083% Inhalation 4 x a day prn 06/10/2014 Active Valium 5MG 1 tablet as needed O RAL at bedtime, 1/2 tab prn during the day [facility] 06/10/2014 Active Social History Tobacco Use: Social [...] Status Risk Notes Problem Postmenopausal atrophic vaginitis (11828847) Postmenopausal atrophic vaginitis (N95.2) Active confirmed Problem Age-related osteoporosis (296674534) Age-related osteoporosis without current pathological fracture (M81.0) Active confirmed Problem Urgent desire to urinate (00210326) Urgency of urination (R39.15) Active confirmed 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 Problem Chronic systolic heart failure (655845537) Chronic systolic (congestive) heart failure (I50.22) Active confirmed Problem Chronic obstructive pulmonary disease (07189415) Chronic obstructive pulmonary disease, unspecified (J44.9) Active confirmed Problem Functional urinary incontinence (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) Functional 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) Active confirmed Problem Personal history of primary malignant neoplasm of bronchus (685901664) 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) Active confirmed Vital Signs Temperature 97.7 degrees Fahrenheit 07/18/2024 Blood pressure diastolic 62 mm Hg 07/18/2024 Height 63 in 07/18/2024 Blood pressure systolic 102 mm Hg 07/18/2024 Weight 126 lbs 07/18/2024 BMI 22.32 kg/m2 07/18/2024 Encounters Encounter Location Date Provider Diagnosis [facility] [address] [address] 05/03/2024 Yenny Elizalde Urgency of urination R39.15 and Abscess of vulva N76.[address] [address] 05/10/2024 Yenny Elizalde Abscess of vulva N76 .[address] [address] 05/17/2024 Yenny Elizalde Abscess of vulva N76 .[address] [address] 07/09/2024 Yenny Elizalde Urgency of urination R39.15 ; Acute vaginitis N76.0 and Postmenopausal atrophic vaginitis N95.[address] [address] 07/18/2024 Yennydorothy Lovettva Encounter for screening mammogram for malignant neoplasm of breast Z12.31 and Mastodynia N64.[address] [address] 05/10/2024 Yenny Elizalde [facility] [address] [address] 05/13/2024 Yenny Elizalde [facility] [address] [place] [address] 06/11/2024 Yenny Roweueva Assessments Encounter Date Diagnosis [...] [facility] AND DISCUSSED THIS PAT. [...] Date MEDICARE [address] VEDA NIEVES [id number] CINDA WATSON Self - patient is the insured [employer] [address] [place] [address] [phone] [id number] 3 CINDA WATSON Self - patient is [...]
--- OUTSIDE RECORDS SUMMARY | 2024-10-30 11:09 | XMS_ITS | Encounter Summary ---
Author Organization [facility] Address [address] [place] [phone] Care Team Providers Care Marketing Account Executive Name Role Phone Caitlyn Bowie MD Primary Care Provider +1- [phone] Encounter Details Date Type Department Care Team (Late st Contact Info) Description 03/01/2021 Scanned Document INTERFACE DEFAULT [address] [place] [address] System, Provider Not In Social History Tobacco [...] [facility] Visit [facility] at [address] [place] [address] Ronald Mills MD [address] [place] [phone] documented as of this encounter Visit Diagnoses Not on filedocumented in this encounter Additional Health Concerns Infection Onset Date Last Indicated Resolved Time COVID-19 03/05/2022 03/05/2022 03/15/2022 7:18 PM EDT Assessment Noted Time PHQ-9 Depression Total Score: 2 11/07/19 19 2:06 PM EDT documented as of this encounter Care Teams Marketing Account Executive Relationship Specialty Start Date End Date Caitlyn Bowie MD [address] [address] PCP - General Internal Medicine 05/06/21 documented as of this encounter
--- OUTSIDE RECORDS SUMMARY | 2024-10-30 11:09 | XMS_ITS | Encounter Summary ---
Author Organization [facility] and [facility] Address [address] [place] [address] Care Team Providers Care Plant Senior Manager Name Role Phone Caitlyn Bowie MD Primary Care Provider +1- [phone] Encounter Details Date Type Department Care Team (Late Contact Info) Description 10/16/2013 Scanned Document [facility] [address] [place] [address], 2nd floor [facility], [address] [place], [place] [address] Suzy Kong MD [address] [place] [phone] Social History Tobacco Use Types Packs/Day [...] Office Visit [facility] at [address] [address] Ronald Mills MD [address] [place] [phone] documented as of this encounter Visit Diagnoses Not on filedocumented in this encounter Additional Health Concerns Infection Onset Date Last Indicated Resolved Time COVID-19 03/05/2022 03/05/2022 03/15/2022 7:18 PM EDT documented as of this encounter Care Teams Plant Senior Manager Relationship Specialty Start Date End Date Caitlyn Bowie MD [address] [facility] [address] [place] [address] PCP - General Internal Medicine 05/06/21 Henry Kelly MD Pulmonary Department [address] [facility] [place] [address] Physician Pulmonary Disease 09/06/17 06/22/20 documented as of this encounter
--- OUTSIDE RECORDS SUMMARY | 2024-10-30 11:09 | XMS_ITS | Encounter Summary ---
Author Organization [facility] Address [address] [place] [address] Care Team Providers Care Pressure Tester Name Role Phone Caitlyn Bowie MD Primary Care Provider +1- [phone] Encounter Details Date Type Department Care Team (Late st Contact Info) Description 04/13/2021 Scanned Document INTERFACE DEFAULT [address] [place] [address] System, Provider Not In Social History Tobacco [...] [facility] Visit [facility] at [address] [place] [address] Ronald Mills MD [address] [place] [phone] documented as of this encounter Procedures [...] documented as of this encounter Care Teams Pressure Tester Relationship Specialty Start Date End Date Caitlyn Bowie MD [address] [address] PCP - General Internal Medicine 05/06/21 documented as of this encounter
--- OUTSIDE RECORDS SUMMARY | 2024-10-30 11:09 | XMS_ITS | Encounter Summary ---
Author Organization [facility] Address [address] [place] [address] Care Team Providers Care Glass Blowing Lathe Operator Name Role Phone Caitlyn Bowie MD Primary Care Provider +1- [phone] Encounter Details Date Type Department Care Team (Late st Contact Info) Description 03/22/2021 Scanned Document INTERFACE DEFAULT [address] [place] [address] System, Provider Not In Social History Tobacco [...] [facility] Visit [facility] at [address] [place] [address] Ronald Mills MD [address] [place] [phone] documented as of this encounter Visit Diagnoses Not on filedocumented in this encounter Additional Health Concerns Infection Onset Date Last Indicated Resolved Time COVID-19 03/05/2022 03/05/2022 03/15/2022 7:18 PM EDT Assessment Noted Time PHQ-9 Depression Total Score: 2 11/07/19 19 2:06 PM EDT documented as of this encounter Care Teams Glass Blowing Lathe Operator Relationship Specialty Start Date End Date Caitlyn Bowie MD [address] [address] PCP - General Internal Medicine 05/06/21 documented as of this encounter
--- OUTSIDE RECORDS SUMMARY | 2024-10-30 11:09 | XMS_ITS | Encounter Summary ---
Author Organization [facility] Address [address] [place] [address] Care Team Providers Care Business Support Associate Name Role Phone Caitlyn Bowie MD Primary Care Provider +1- [phone] Encounter Details Date Type Department Care Team (Late st Contact Info) Description 09/18/2020 Scanned Document INTERFACE DEFAULT [address] [place] [address] System, Provider Not In Social History Tobacco [...] [facility] Visit [facility] at [address] [place] [address] Ronald Mills MD [address] [place] [phone] documented as of this encounter Visit Diagnoses Not on filedocumented in this encounter Additional Health Concerns Infection Onset Date Last Indicated Resolved Time COVID-19 03/05/2022 03/05/2022 03/15/2022 7:18 PM EDT Assessment Noted Time PHQ-9 Depression Total Score: 2 11/07/19 19 2:06 PM EDT documented as of this encounter Care Teams Business Support Associate Relationship Specialty Start Date End Date Caitlyn Bowie MD [address] [address] PCP - General Internal Medicine 05/06/21 documented as of this encounter
--- OUTSIDE RECORDS SUMMARY | 2024-10-30 11:09 | XMS_ITS | Encounter Summary ---
Author Organization [facility] Address [address] [place] [address] Care Team Providers Care Artificial Leather Calender Operator Name Role Phone Caitlyn Bowie MD Primary Care Provider +1- [phone] Encounter Details Date Type Department Care Team (Late st Contact Info) Description 02/25/2021 Scanned Document INTERFACE DEFAULT [address] [place] [address] System, Provider Not In Social History Tobacco [...] [facility] Visit [facility] at [address] [place] [address] Ronald Mills MD [address] [place] [phone] documented as of this encounter Procedures [...] documented as of this encounter Care Teams Artificial Leather Calender Operator Relationship Specialty Start Date End Date Caitlyn Bowie MD [address] [address] PCP - General Internal Medicine 05/06/21 documented as of this encounter
--- OUTSIDE RECORDS SUMMARY | 2024-10-30 11:09 | XMS_ITS | Encounter Summary ---
Author Organization [facility] and [facility] Address [address] [place] [address] Care Team Providers Care Clinical Trial Manager Name Role Phone Caitlyn Bowie MD Primary Care Provider +1- [phone] Encounter Details Date Type Department Care Team (Late st Contact Info) Description 03/11/2021 Scanned Document INTERFACE DEFAULT [address] [place] [address] System, Provider Not In Social History Tobacco [...] [facility] Visit [facility] at [address] [place] [address] Ronald Mills MD [address] [place] [phone] documented as of this encounter Procedures [...] of this encounter Care Teams Clinical Trial Manager Relationship Specialty Start Date End Date Caitlyn Bowie MD [address] [address] PCP - General Internal Medicine 05/06/21 documented as of this encounter
--- OUTSIDE RECORDS SUMMARY | 2024-10-30 11:09 | XMS_ITS | Encounter Summary ---
Author Organization [facility] Address [address] [place] [address] Care Team Providers Care Yard Pilot Name Role Phone Caitlyn Bowie MD Primary Care Provider +1- [phone] Encounter Details Date Type Department Care Team (Late st Contact Info) Description 10/07/2013 Scanned Document [facility] at [address] [place] [address] Suzy Kong MD [address] [place] [phone] Social History Tobacco Use Types Packs/Day [...] PM EDT Office Visit Hematology Program at [address] [place] [address] Ronald Mills MD [address] [phone] documented as of this encounter Visit Diagnoses Not on filedocumented in this encounter Additional Health Concerns Infection Onset Date Last Indicated Resolved Time COVID-19 03/05/2022 03/05/2022 03/15/2022 7:18 PM EDT documented as of this encounter Care Teams Yard Pilot Relationship Specialty Start Date End Date Caitlyn Bowie MD [address] [facility] [address] [place] [address] PCP - General Internal Medicine 05/06/21 Henry Kelly MD Pulmonary Department [address] [facility] [place] [address] Physician Pulmonary Disease 09/06/17 06/22/20 documented as of this encounter
--- OUTSIDE RECORDS SUMMARY | 2024-10-30 11:09 | XMS_ITS | Encounter Summary ---
Author Organization [facility] Address [address] [place] [address] Care Team Providers Care Java Application Developer Name Role Phone Caitlyn Bowie MD Primary Care Provider +1- [phone] Encounter Details Date Type Department Care Team (Late st Contact Info) Description 06/07/2017 Scanned Document [facility] Health Information Management [address] [place] [address] External, Provider Social History Tobacco Use Types [...] Office Visit [facility] at [address] [place] [address] Ronald Mills MD [address] [place] [phone] documented as of this encounter Procedures [...] as of this encounter Care Teams Java Application Developer Relationship Specialty Start Date End Date Caitlyn Bowie MD [address] [facility] [address] [place] [address] PCP - General Internal Medicine 05/06/21 Henry Kelly MD Pulmonary Department [address] [facility] [place] [address] Physician Pulmonary Disease 09/06/17 06/22/20 documented as of this encounter
--- OUTSIDE RECORDS SUMMARY | 2024-10-30 11:09 | XMS_ITS | Clinical Summary ---
Author Organization 175 [facility] Address 175 [place] [address] Phone Care Team Providers Care Vacuum Cooker Operator Name Role Phone Brennan Burnett Primary Care Provider [phone] Allergies Active Allergy Reactions Criticality Noted Date [...] 20 mg as needed by her previous technical applications specialist which she has taken sporadically. I have asked her to take this daily to see if this improves her symptoms and she has a follow-up appointment with Dr. Shah on September 16 which she will keep. We also had a long conversation regarding the fact that she is seeing 3 different technical applications specialist for the same problems. We informed her [...] continues to see Dr. Avalos or her technical applications specialist at [facility]. She verbalized understanding of this and [...] right lower leg 03/06/2019 Antiphospholipid antibody syndrome ([facility] V24) 12/24/2018 Adrenal insufficiency ([facility] V24) 08/23/2018 Allergic rhinitis 08/23/2018 Hyperparathyroidism ([facility] V24) 08/23/2018 MRSA infection 08/23/2018 Overview (05/16/2024): 06/2009, s/p thoracotomy infection Osteoarthritis 08/23/2018 Radiation-induced pulmonary fibrosis ([facility] V2 4) 11/13/2017 Bronchiectasis ([facility] V24, [facility] V28) 2017 Leg edema 08/08/2017 Restrictive lung disease 08/08/2017 Chronic obstructive pulmonar y disease ([facility] V24, [facility] V28) 04/13/2017 Fibromyalgia 04/13/2017 Congestive heart failure ([facility] V24, [facility] V 28) 04/04/2017 Heterozygous factor V Leiden mutation ([facility] V 24) 04/04/2017 Obstructive sleep apnea syndrome 04/04/2017 Overview (05/16/2024): CPAP Pleural effusion 04/04/2017 Pulmonary hypertension ([facility] V24, [facility] V28 ) 04/04/2017 Multiple pulmonary [...] Description 10/10/2024 1:00 PM EDT Office Visit [address] [place] [address] Ayanna Jaffe MD 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); Cognitive communication disorder; Unsp symptoms and signs w cognitive functions and awareness 10/09/2024 Plan of Care Documentation [facility] Speech [facility] [address] [address] 08/26/2024 10:30 AM EST Telemedicine [facility] 175 [facility] [address] [place] [phone] Ayanna Jaffe MD Anxiety (Primary Dx); Memory change; Gait abnormality; White matter lesion of central nervous system 08/23/2024 1:20 PM EST Office Visit Gastroenterology - [facility] 299 [facility] [address] [place] [phone] Saima Amor, DISPLAY ARTIST Gastroesophageal reflux disease, unspecified whether esophagitis present (Primary Dx); Constipation, unspecified constipation type 08/19/2024 Telephone [facility] Speech Therapy [address] [address] Daphne Alarcon, HOUSEKEEPING WORKER returning pt call 08/08/2024 Telephone [facility] Therapy [address] [address] Daphne Alarcon, HOUSEKEEPING WORKER Memory Loss (Returned pt call from 08/07 [...] PROCEDURE: HISTORICAL TONSILLECTOMY OTHER SURGICAL HISTORY PROCEDURE: MS RMVL LUNG XCP TOT PNEUMONECTOMY SLEEVE LOBECTOMY; [...] pathology report UPPER GASTROINTESTINAL ENDOSCOPY 05/03/2015 PROCEDURE: MS UPPER GI ENDOSCOPY PERFORMED MITRAL CLIP PROCEDURE Medical History Medical History Date Comments Akathisia 04/15/2013 DX:Akathisia Anxiety 12/07/2016 DX:Anxiety Bronchiectasis ([facility] V24, [facility] V28) 08/08/2017 DX:Bronchiectasis (HCC) Cataract 08/26/2014 DX:Cataract Chronic obstructive pulmonar y disease ([facility], [facility] V28) 04/13/2017 DX:Chronic obstructive pulm onary disease (HCC) 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 DX:Complica cole migraine Congestive heart failure ([facility], [facility] V[facility]) 04/04/2017 DX:Congestive heart failure (HCC) History of deep vein thrombosis 04/04/2017 DX:History of deep vein thrombosis Diverticulitis of sigmoid colon 12/15/2016 DX:Diverticulitis of sigmoid colon Elevated liver enzymes 09/23/2015 DX:Elevat ed liver enzymes Fibromyalgia 04/13/2017 DX:Fibromyalgia Gastroesophageal reflux disease 11/17/2016 DX:Gastroesophageal reflux disease Glaucoma suspect 08/26/2014 DX:Glaucoma dori pect Heterozygous factor V Leiden mutation ([facility] V24) 04/04/2017 DX:Heterozygous factor V [...] syndrome 02/18/2013 DX:Postc oncussion syndrome Pulmonary hypertension ([facility] V24, [facility] V28) 04/04/2017 DX:Pulmonary hypertension (H CC) Restrictive lung disease 08/08/2017 DX:Rest rictive lung disease 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 DX:Zinc deficien cy Obstructive sleep apnea syndrome 04/04/2017 DX:Obstructive sleep apnea syndrome; COMMENT: CPAP Radiation-induced pulmonary fibrosis ([facility] V24) 11/13/2017 DX:Radiation-induced pulmona ry fibrosis (HCC) Adrenal insufficiency ([facility] V24) 08/23/2018 DX:Adrenal insufficiency (HCC) Hyperparathyroidism ([facility] V24) 08/23/2018 DX:Hyperparathyroidism (HCC) Osteoporosis [...] Mx LLL resection, Chemo, RT, Cisplatin, Vinorelbine [id number] Antiphospholipid antibody sy ndrome ([facility] V24) 12/24/2018 DX:Antiphospholipid antibody syndrome (HCC) 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 [address] [place] [phone] Shirley Chaidez PA [address] [place] [address] 12/23/2024 9:00 AM EDT Office Visit V[facility] [place] [address] [place] [phone] Jerry Li MD [address] [address] Health Maintenance Due Date Last Done Comments [...] mmol/L LAB CHEMISTRY METHOD 06/15/2024 2:10 PM [facility] Potassium 4.7 3.5 - 5.5 mmol/L LAB CHEMISTRY METHOD 06/15/2024 2:10 PM [facility] Chloride 102 96 - 110 mmol/L LAB CHEMISTRY METHOD 06/15/2024 2:10 PM [facility] CO2 34(H) 21 - 32 mmol/L LAB CHEMISTRY METHOD 06/15/2024 2:10 PM [facility] Anion Gap 4 3 - 11 LAB CHEMISTRY METHOD 06/15/2024 2:10 PM [facility] Glucose 95 70 - 100 mg/dL LAB CHEMISTRY METHOD 06/15/2024 2:10 PM [facility] BUN 29(H) 5 - 25 mg/dL LAB CHEMISTRY METHOD 06/15/2024 2:10 PM [facility] Creatinine 0.95 0.50 - 1.10 mg/dL LAB CHEMISTRY METHOD 06/15/2024 2:10 PM [facility] eGFR 60 >=60 mL/min/1. 73m2 LAB CHEMISTRY METHOD 06/15/2024 2:10 PM [facility] Comment:Calculation based on the??Chronic Kidney Disease Epidemiology Collaboration (CKD-EPI) equation refit??without adjustment for race. BUN/Creatinine Ratio 30.5 LAB CHEMISTRY METHOD 06/15/2024 2:10 PM [facility] Calcium 10.1 8.5 - 10.5 mg/dL LAB CHEMISTRY METHOD 06/15/2024 2:10 PM [facility] AST (SGOT) 35 10 - 42 unit/L LAB CHEMISTRY METHOD 06/15/2024 2:10 PM EST [facility] ALT (SGPT) 39 10 - 60 unit/L LAB CHEMISTRY METHOD 06/15/2024 2:10 PM [facility] Alkaline Phosphatase 83 42 - 121 unit/L LAB CHEMISTRY METHOD 06/15/2024 2:10 PM [facility] Total Protein 6.4 6.0 - 8.0 g/dL LAB CHEMISTRY METHOD 06/15/2024 2:10 PM EST [facility] Albumin 3.3 3.2 - 5.0 g/dL LAB CHEMISTRY METHOD 06/15/2024 2:10 PM [facility] Total Bilirubin 0.4 0.0 - 1.4 mg/dL LAB CHEMISTRY METHOD 06/15/2024 2:10 PM [facility] Blood Venous blood specimen / Unknown Venipuncture / Unknown 06/15/2024 1:26 PM EST 06/15/2024 1:32 PM EST us Jovana Cruz MD LAB BLOOD ORDERABLES Final Resul t [facility] 299 [place] [address], from Last 3 Months or Most Recently Relevant to Health Maintenance Insurance MEDICARE [facility] Advance Directives Documents on File Type Date Recorded Patient Fountain Helper Expl anation Health Care Decision (hx) 10/18/2013 [...] (hx) 10/04/2013 AD LACEY DIRECTIVE Care Teams Vacuum Cooker Operator Relationship Specialty Start Date End Date Brennan Burnett MD [address] [place] [address] PCP - General 05/06/24
--- OUTSIDE RECORDS SUMMARY | 2024-10-30 11:09 | XMS_ITS | Encounter Summary ---
Author Organization [facility] and [facility] Address [address] [place] [address] Care Team Providers Care Elevator Technician Name Role Phone Caitlyn Bowie MD Primary Care Provider +1- [phone] Encounter Details Date Type Department Care Team (Late st Contact Info) Description 04/12/2021 Scanned Document INTERFACE DEFAULT [address] [place] [address] System, Provider Not In Social History Tobacco [...] [facility] Visit [facility] [address] [place] [address] Ronald Mills MD [address] [place] [phone] documented as of this encounter Procedures [...] documented as of this encounter Care Teams Elevator Technician Relationship Specialty Start Date End Date Caitlyn Bowie MD [address] [address] PCP - General Internal Medicine 05/06/21 documented as of this encounter
--- OUTSIDE RECORDS SUMMARY | 2024-10-30 11:09 | XMS_ITS | Encounter Summary ---
Author Organization [facility] and [facility] Address [address] [place] [address] Care Team Providers Care Assistant County Engineer Name Role Phone Caitlyn Bowie MD Primary Care Provider +1- [phone] Encounter Details Date Type Department Care Team (Late st Contact Info) Description 01/07/2014 Documentation [facility] [address] [place] [address] Shilpi Ibarra [address] [place] [address] Social History Tobacco Use Types Packs/Day Years [...] [facility] Progress Note This is a 68 [...] Visit [facility] 20 [facility] - [address] [place] [address] Ronald Mills MD 240 [facility] [address] [place] [address] documented as of this encounter Visit Diagnoses Not on filedocumented in this encounter Additional Health Concerns Infection Onset Date Last Indicated Resolved Time COVID-19 03/05/2022 03/05/2022 03/15/2022 7:18 PM EDT documented as of this encounter Care Teams Assistant County Engineer Relationship Specialty Start Date End Date Caitlyn Bowie MD 3400 [facility] 1 [place] [address] PCP - General Internal Medicine 05/06/21 Henry Kelly MD Pulmonary Department 175 [facility], [address] [place] [address] Physician Pulmonary Disease 09/06/17 06/22/20 documented as of this encounter
--- OUTSIDE RECORDS SUMMARY | 2024-10-30 11:10 | XMS_ITS | Encounter Summary ---
Author Organization [facility] Address [address] [place] [address] Care Team Providers Care Utilization Management Um Nurse Name Role Phone Caitlyn Bowie MD Primary Care Provider +1- [phone] Encounter Details Date Type Department Care Team (Late st Contact Info) Description 01/28/2018 Scanned Document [facility] Health Information Management [address] [place] [address] External, Provider Social History Tobacco Use Types [...] Office Visit [facility] [address] [place] [address] Ronald Mills MD [address] [place] [phone] documented as of this encounter Visit Diagnoses Not on filedocumented in this encounter Additional Health Concerns Infection Onset Date Last Indicated Resolved Time COVID-19 03/05/2022 03/05/2022 03/15/2022 7:18 PM EDT documented as of this encounter Care Teams Utilization Management Um Nurse Relationship Specialty Start Date End Date Caitlyn Bowie MD 3400 [facility] 1 [place] [address] PCP - General Internal Medicine 05/06/21 Henry Kelly MD Pulmonary Department [address] [place] [address], [address] [place] [address] Physician Pulmonary Disease 09/06/17 06/22/20 documented as of this encounter
--- OUTSIDE RECORDS SUMMARY | 2024-10-30 11:10 | XMS_ITS | Encounter Summary ---
Author Organization [facility] and [facility] Address [address] [place] [address] Care Team Providers Care Roller Setter Name Role Phone Caitlyn Bowie MD Primary Care Provider +1- [phone] Encounter Details Date Type Department Care Team (Late st Contact Info) Description 02/01/2018 Scanned Document [facility] Health Information Management [address] [place] [address] External, Provider Social History Tobacco Use Types [...] Office Visit [facility] [address] [place] [address] Ronald Milsl MD [address] [place] [phone] documented as of this encounter Procedures [...] as of this encounter Care Teams Roller Setter Relationship Specialty Start Date End Date Caitlyn Bowie MD 3400 [facility] Max 1 [place] [address] PCP - General Internal Medicine 05/06/21 Henry Kelly MD Pulmonary Department 175 [facility], [address] [place] [address] Physician Pulmonary Disease 09/06/17 06/22/20 documented as of this encounter
--- OUTSIDE RECORDS SUMMARY | 2024-10-30 11:10 | XMS_ITS | Encounter Summary ---
Author Organization [facility] and [facility] Address [address] [place] [address] Care Team Providers Care Supervisor Research Shop Name Role Phone Caitlyn Bowie MD Primary Care Provider +1- [phone] Encounter Details Date Type Department Care Team (Late Contact Info) Description 01/26/2018 Scanned Document [facility] Health Information Management [address] [place] [address] External, Provider Social History Tobacco Use Types [...] Office Visit [facility] [address] [place] [address] Ronald Mills MD [address] [place] [phone] documented as of this encounter Procedures [...] Caitlyn Bowie MD 3400 [facility] 1 [place] [address] PCP - General Internal Medicine 05/06/21 Henry Kelly MD Pulmonary Department 175 [facility], [address] [place] [address] Physician Pulmonary Disease 09/06/17 06/22/20 documented as of this encounter
--- OUTSIDE RECORDS SUMMARY | 2024-10-30 11:10 | XMS_ITS | Encounter Summary ---
Author Organization [facility] and [facility] Address [address] [place] [address] Care Team Providers Care Regional Tanker Truck Driver Name Role Phone Caitlyn Bowie MD Primary Care Provider +1- [phone] Encounter Details Date Type Department Care Team (Late st Contact Info) Description 01/26/2018 Scanned Document [facility] Health Information Management [address] [place] [address] External, Provider Social History Tobacco Use Types [...] Office Visit [facility] [address] [place] [address] Ronald Mills MD [address] [place] [phone] documented as of this encounter Procedures [...] as of this encounter Care Teams Regional Tanker Truck Driver Relationship Specialty Start Date End Date Caitlyn Bowie MD 3400 [facility] 1 [place] [address] PCP - General Internal Medicine 05/06/21 Henry Kelly MD Pulmonary Department 175 [facility], [address] [place] [address] Physician Pulmonary Disease 09/06/17 06/22/20 documented as of this encounter
--- OUTSIDE RECORDS SUMMARY | 2024-10-30 11:10 | XMS_ITS | Encounter Summary ---
Author Organization [facility] and [facility] Address [address] [place] [address] Care Team Providers Care Laundry Pricing Clerk Name Role Phone Caitlyn Bowie MD Primary Care Provider +1- [phone] Encounter Details Date Type Department Care Team (Late st Contact Info) Description 02/19/2015 Scanned Document [facility] Health Information Management [address] [place] [address] External, Provider Social History Tobacco Use Types [...] Office Visit [facility] [address] [place] [address] Ronald Mills MD [address] [place] [phone] documented as of this encounter Procedures Procedure Name Priority Date/Time Associated Diagnosis Comments LAB SCAN Routine 02/19/2015 documented in this encounter Results * Lab Scan (02/19/2015) Blood specimen (specimen) us Provider External LAB BLOOD ORDERABLES Final Res ult [facility] documented in this encounter Visit Diagnoses Not on filedocumented in this encounter Additional Health Concerns Infection Onset Date Last Indicated Resolved Time COVID-19 03/05/2022 03/05/2022 03/15/2022 7:18 PM EDT documented as of this encounter Care Teams Laundry Pricing Clerk Relationship Specialty Start Date End Date Caitlyn Bowie MD 3400 [facility] 1 [place] [address] PCP - General Internal Medicine 05/06/21 Henry Kelly MD Pulmonary Department 175 [facility], [address] [place] [address] Physician Pulmonary Disease 09/06/17 06/22/20 documented as of this encounter
--- OUTSIDE RECORDS SUMMARY | 2024-10-30 11:10 | XMS_ITS | Encounter Summary ---
Author Organization [facility] and [facility] Address [address] [place] [address] Care Team Providers Care Lan Analyst Name Role Phone Caitlyn Bowie MD Primary Care Provider +1- [phone] Encounter Details Date Type Department Care Team (Late Contact Info) Description 01/27/2021 Scanned Document [facility] at [address] [address] External, Provider Social History Tobacco Use Types [...] EDT Office Visit Hematology Program at [address] [place], [place] [address] Ronald Mills MD [address] [phone] documented as of this encounter [...] documented as of this encounter Care Teams Lan Analyst Relationship Specialty Start Date End Date Caitlyn Bowie MD [facility] [address] [address] PCP - General Internal Medicine 05/06/21 documented as of this encounter
--- OUTSIDE RECORDS SUMMARY | 2024-10-30 11:10 | XMS_ITS | Encounter Summary ---
Author Organization [facility] and [facility] Address [address] [place] [address] Care Team Providers Care Protection Engineer Name Role Phone Caitlyn Bowie MD Primary Care Provider +1- [phone] Encounter Details Date Type Department Care Team (Late st Contact Info) Description 02/03/2021 Scanned Document INTERFACE DEFAULT [address] [place] [address] System, Provider Not In Social History Tobacco [...] Office Visit [facility] [address] [place] [address] Ronald Mills MD [address] [place] [phone] documented as of this encounter Procedures [...] documented as of this encounter Care Teams Protection Engineer Relationship Specialty Start Date End Date Caitlyn Bowie MD [address] [address] PCP - General Internal Medicine 05/06/21 documented as of this encounter
--- OUTSIDE RECORDS SUMMARY | 2024-10-30 11:10 | XMS_ITS | Encounter Summary ---
Author Organization [facility] and [facility] Address [address] [place] [address] Care Team Providers Care Director Product Development Name Role Phone Caitlyn Bowie MD Primary Care Provider +1- [phone] Encounter Details Date Type Department Care Team (Late st Contact Info) Description 04/18/2018 Scanned Document [facility] Health Information Management [address] [place] [address] External, Provider Social History Tobacco Use Types [...] Office Visit [facility] [address] [place] [address] Ronald Mills MD [address] [place] [phone] documented as of this encounter Procedures [...] as of this encounter Care Teams Director Product Development Relationship Specialty Start Date End Date Caitlyn Bowie MD 3400 [facility] Max 1 [place] [address] PCP - General Internal Medicine 05/06/21 Henry Kelly MD Pulmonary Department 175 [facility], [address] [place] [address] Physician Pulmonary Disease 09/06/17 06/22/20 documented as of this encounter
--- OUTSIDE RECORDS SUMMARY | 2024-10-30 11:10 | XMS_ITS | Encounter Summary ---
Author Organization [facility] and [facility] Address [address] [place] [address] Care Team Providers Care Head Of Training And Development Name Role Phone Caitlyn Bowie MD Primary Care Provider +1- [phone] Encounter Details Date Type Department Care Team (Late st Contact Info) Description 05/01/2015 Scanned Document [facility] Health Information Management [address] [place] [address] External, Provider Social History Tobacco Use Types [...] Office Visit [facility] [address] [place] [address] Ronald Mills MD [address] [place] [phone] documented as of this encounter Procedures [...] of this encounter Care Teams Head Of Training And Development Relationship Specialty Start Date End Date Caitlyn Bowie MD 3400 [facility] 1 [place] [address] PCP - General Internal Medicine 05/06/21 Henry Kelly MD Pulmonary Department 175 [facility], [address] [place] [address] Physician Pulmonary Disease 09/06/17 06/22/20 documented as of this encounter
--- OUTSIDE RECORDS SUMMARY | 2024-10-30 11:10 | XMS_ITS | Encounter Summary ---
Author Organization [facility] and [facility] Address [address] [place] [address] Care Team Providers Care Customs And Border Protection Inspector Name Role Phone Caitlyn Bowie MD Primary Care Provider +1- [phone] Encounter Details Date Type Department Care Team (Late Contact Info) Description 01/30/2018 Scanned Document [facility] Health Information Management [address] [place] [address] External, Provider Social History Tobacco Use Types [...] [facility] Visit [facility] at [address] [place] [address] Ronald Mills MD [address] [place] [phone] documented as of this encounter Procedures [...] as of this encounter Care Teams Customs And Border Protection Inspector Relationship Specialty Start Date End Date Caitlyn Bowie MD 3400 [facility] 1 [place] [address] PCP - General Internal Medicine 05/06/21 Henry Kelly MD Pulmonary Department [address] [place] [address], [address] [place] [address] Physician Pulmonary Disease 09/06/17 06/22/20 documented as of this encounter
--- OUTSIDE RECORDS SUMMARY | 2024-10-30 11:10 | XMS_ITS | Encounter Summary ---
Author Organization [facility] and [facility] Address [address] [place] [address] Care Team Providers Care Strategic Account Executive Name Role Phone Caitlyn Bowie MD Primary Care Provider +1- [phone] Encounter Details Date Type Department Care Team (Late st Contact Info) Description 03/13/2015 Scanned Document [facility] Health Information Management [address] [place] [address] External, Provider Social History Tobacco Use Types [...] Office Visit [facility] at [address] - [address] [place] [address] Ronald Mills MD [address] [place] [phone] documented as of this encounter Procedures Procedure Name Priority Date/Time Associated Diagnosis Comments LAB SCAN Routine 02/16/2015 LAB SCAN Routine 02/16/2015 documented in this encounter Results * Lab Scan (02/16/2015) Blood specimen (specimen) us Provider External LAB BLOOD ORDERABLES Final Res ult Performing Organization Address [facility] Co de Phone Number [facility] * Lab Scan (02/16/2015) Blood specimen (specimen) Provider External LAB BLOOD ORDERABLES Final Res ult Performing Organization Address [facility] Co de Phone Number [facility] documented in this encounter Visit Diagnoses Not on filedocumented in this encounter Additional Health Concerns Infection Onset Date Last Indicated Resolved Time COVID-19 03/05/2022 03/05/2022 03/15/2022 7:18 PM EDT documented as of this encounter Care Teams Strategic Account Executive Relationship Specialty Start Date End Date Caitlyn Bowie MD 3400 [facility] 1 [place] [address] PCP - General Internal Medicine 05/06/21 Henry Kelly MD Pulmonary Department 175 [facility], [address] [place] [address] Physician Pulmonary Disease 09/06/17 06/22/20 documented as of this encounter
--- OUTSIDE RECORDS SUMMARY | 2024-10-30 11:10 | XMS_ITS | Encounter Summary ---
Author Organization [facility] and [facility] Address [address] [place] [address] Care Team Providers Care Shift Stacker Name Role Phone Caitlyn Bowie MD Primary Care Provider +1- [phone] Encounter Details Date Type Department Care Team (Late st Contact Info) Description 11/09/2014 Scanned Document [facility] Health Information Management [address] [place] [phone] External, Provider Social History Tobacco Use Types [...] [facility] Visit [facility] at [address] - [address] [place] [address] Ronald Mills MD [address] [place] [phone] documented as of this encounter Visit Diagnoses Not on filedocumented in this encounter Additional Health Concerns Infection Onset Date Last Indicated Resolved Time COVID-19 03/05/2022 03/05/2022 03/15/2022 7:18 PM EDT documented as of this encounter Care Teams Shift Stacker Relationship Specialty Start Date End Date Caitlyn Bowie MD 3400 [facility] 1 [place] [address] PCP - General Internal Medicine 05/06/21 Henry Kelly MD Pulmonary Department 175 [facility], [address] [place] [address] Physician Pulmonary Disease 09/06/17 06/22/20 documented as of this encounter
--- OUTSIDE RECORDS SUMMARY | 2024-10-30 11:10 | XMS_ITS | Encounter Summary ---
Author Organization [facility] and [facility] Address [address] [place] [address] Care Team Providers Care Integration Architect Name Role Phone Caitlyn Bowie MD Primary Care Provider +1- [phone] Reason for Visit * Reason Comments Other Encounter Details Date Type Department Care Team (Late st Contact Info) Description 01/12/2021 Telephone [facility] at [address] - [address] [phone] Ronald Mills MD [address] [place] [phone] Other Social History Tobacco Use Types [...] AM EDT Lab orders were faxed to [facility] @ [phone]. Patient notified by phone. * Telephone Encounter - Kathleen Nasima - 01/12/2021 8:46 AM EDT Pt called looking to speak with Kirstin RE: lab orders sent to lab [facility] [place] lab Looking to have labs sent there A.S.A.P at some point today She is scheduled with Dr. Mills on January 28 documented in this encounter Plan of Treatment Upcoming Encounters Date Type Department Care Team (Late st Contact Info) Description 10/31/2024 1:00 PM EDT Office Visit [facility] at [address] - [address] [address] Ronald Mills MD [address] [phone] documented as of this encounter Visit Diagnoses Not on filedocumented in this encounter Additional Health Concerns Infection Onset Date Last Indicated Resolved Time COVID-19 03/05/2022 03/05/2022 03/15/2022 7:18 PM EDT Assessment Noted Time PHQ-9 Depression Total Score: 2 11/07/19 19 2:06 PM EDT documented as of this encounter Care Teams Integration Architect Relationship Specialty Start Date End Date Caitlyn Bowie MD [address] [address] PCP - General Internal Medicine 05/06/21 documented as of this encounter
--- OUTSIDE RECORDS SUMMARY | 2024-10-30 11:10 | XMS_ITS | Encounter Summary ---
Author Organization [facility] and [facility] Address [address] [place] [address] Care Team Providers Care Appeals Rn Name Role Phone Caitlyn Bowie MD Primary Care Provider +1- [phone] Encounter Details Date Type Department Care Team (Late st Contact Info) Description 02/02/2018 Scanned Document [facility] Health Information Management [address] [place] [address] External, Provider Social History Tobacco Use Types [...] Office Visit [facility] at [address] - [address] [place] [address] Ronald Mills MD [address] [place] [phone] documented as of this encounter Procedures [...] as of this encounter Care Teams Appeals Rn Relationship Specialty Start Date End Date Caitlyn Bowie MD 3400 [facility] 1 [place] [address] PCP - General Internal Medicine 05/06/21 Henry Kelly MD Pulmonary Department 175 [facility], [address] [place] [address] Physician Pulmonary Disease 09/06/17 06/22/20 documented as of this encounter
--- OUTSIDE RECORDS SUMMARY | 2024-10-30 11:10 | XMS_ITS | Encounter Summary ---
Author Organization [facility] and [facility] Address [address] [place] [address] Care Team Providers Care Pier Hand Helper Name Role Phone Caitlyn Bowie MD Primary Care Provider +1- [phone] Encounter Details Date Type Department Care Team (Late st Contact Info) Description 04/28/2015 Scanned Document [facility] Health Information Management [address] [place] [phone] External, Provider Social History Tobacco Use Types [...] Office Visit [facility] at [address] - [address] [place] [address] Ronald Mills MD [address] [place] [phone] documented as of this encounter Visit Diagnoses Not on filedocumented in this encounter Additional Health Concerns Infection Onset Date Last Indicated Resolved Time COVID-19 03/05/2022 03/05/2022 03/15/2022 7:18 PM EDT documented as of this encounter Care Teams Pier Hand Helper Relationship Specialty Start Date End Date Caitlyn Bowie MD 3400 [facility] 1 [place] [address] PCP - General Internal Medicine 05/06/21 Henry Kelly MD Pulmonary Department 175 [facility], [address] [place] [address] Physician Pulmonary Disease 09/06/17 06/22/20 documented as of this encounter
--- OUTSIDE RECORDS SUMMARY | 2024-10-30 11:10 | XMS_ITS | Encounter Summary ---
Author Organization [facility] and [facility] Address [address] [place] [address] Care Team Providers Care African History Professor Name Role Phone Caitlyn Bowie MD Primary Care Provider +1- [phone] Encounter Details Date Type Department Care Team (Late Contact Info) Description 02/03/2021 Scanned Document [facility] Health Information Management [address] [place] [address] External, Provider Social History Tobacco Use Types [...] Office Visit [facility] at [address] - [address] [place] [address] Ronald Mills MD [address] [place] [phone] documented as of this encounter Procedures [...] documented as of this encounter Care Teams African History Professor Relationship Specialty Start Date End Date Caitlyn Bowie MD [address] [address] PCP - General Internal Medicine 05/06/21 documented as of this encounter
--- OUTSIDE RECORDS SUMMARY | 2024-10-30 11:10 | XMS_ITS | Encounter Summary ---
Author Organization [facility] and [facility] Address [address] [place] [address] Care Team Providers Care Master Brewer Name Role Phone Caitlyn Bowie MD Primary Care Provider +1- [phone] Encounter Details Date Type Department Care Team (Late st Contact Info) Description 02/07/2021 Scanned Document INTERFACE DEFAULT [address] [place] [address] System, Provider Not In Social History Tobacco [...] Office Visit [facility] at [address] - [address] [place] [address] Ronald Mills MD [address] [place] [phone] documented as of this encounter Procedures [...] as of this encounter Care Teams Master Brewer Relationship Specialty Start Date End Date Caitlyn Bwoie MD [address] [address] PCP - General Internal Medicine 05/06/21 documented as of this encounter
--- OUTSIDE RECORDS SUMMARY | 2024-10-30 11:10 | XMS_ITS | Encounter Summary ---
Author Organization [facility] and [facility] Address [address] [place] [address] Care Team Providers Care Planimeter Operator Name Role Phone Caitlyn Bowie MD Primary Care Provider +1- [phone] Encounter Details Date Type Department Care Team (Late st Contact Info) Description 06/25/2015 Scanned Document [facility] Health Information Management [address] [place] [address] External, Provider Social History Tobacco Use Types [...] Office Visit [facility] at [address] - [address] [place] [address] Ronald Mills MD [address] [place] [phone] documented as of this encounter Visit Diagnoses Not on filedocumented in this encounter Additional Health Concerns Infection Onset Date Last Indicated Resolved Time COVID-19 03/05/2022 03/05/2022 03/15/2022 7:18 PM EDT documented as of this encounter Care Teams Planimeter Operator Relationship Specialty Start Date End Date Caitlyn Bowie MD 3400 [facility] 1 [place] [address] PCP - General Internal Medicine 05/06/21 Henry Kelly MD Pulmonary Department 175 [facility], [address] [place] [address] Physician Pulmonary Disease 09/06/17 06/22/20 documented as of this encounter
--- OUTSIDE RECORDS SUMMARY | 2024-10-30 11:10 | XMS_ITS | Encounter Summary ---
Author Organization [facility] and [facility] Address [address] [place] [phone] Care Team Providers Care Room Server Name Role Phone Caitlyn Bowie MD Primary Care Provider +1- [phone] Encounter Details Date Type Department Care Team (Late st Contact Info) Description 02/02/2018 Scanned Document [facility] Health Information Management [address] [place] [address] External, Provider Social History Tobacco Use Types [...] Office Visit [facility] at [address] - [address] [place] [address] Ronald Mills MD [address] [place] [phone] documented as of this encounter Visit Diagnoses Not on filedocumented in this encounter Additional Health Concerns Infection Onset Date Last Indicated Resolved Time COVID-19 03/05/2022 03/05/2022 03/15/2022 7:18 PM EDT documented as of this encounter Care Teams Room Server Relationship Specialty Start Date End Date Caitlyn Bowie MD 3400 [facility] 1 [place] [address] PCP - General Internal Medicine 05/06/21 Henry Kelly MD Pulmonary Department [address] [place] [address], [address] [place] [address] Physician Pulmonary Disease 09/06/17 06/22/20 documented as of this encounter
--- OUTSIDE RECORDS SUMMARY | 2024-10-30 11:10 | XMS_ITS | Encounter Summary ---
Author Organization [facility] and [facility] Address [address] [place] [address] Care Team Providers Care Swimming Pool Cleaner Name Role Phone Caitlyn Bowie MD Primary Care Provider +1- [phone] Encounter Details Date Type Department Care Team (Late st Contact Info) Description 02/02/2021 Scanned Document INTERFACE DEFAULT [address] [place] [address] System, Provider Not In Social History Tobacco [...] Office Visit [facility] at [address] - [address] [place] [address] Ronald Mills MD [address] [place] [phone] documented as of this encounter Procedures [...] of this encounter Care Teams Swimming Pool Cleaner Relationship Specialty Start Date End Date Caitlyn Bowie MD [facility] [address] [address] PCP - General Internal Medicine 05/06/21 documented as of this encounter
--- OUTSIDE RECORDS SUMMARY | 2024-10-30 11:10 | XMS_ITS | Encounter Summary ---
Author Organization [facility] and [facility] Address [address] [place] [address] Care Team Providers Care Lockstitch Sleeve Setter Name Role Phone Caitlyn Bowie MD Primary Care Provider +1- [phone] Encounter Details Date Type Department Care Team (Late Contact Info) Description 01/26/2018 Scanned Document [facility] Health Information Management [address] [place] [address] External, Provider Social History Tobacco Use Types [...] Office Visit [facility] at [address] - [address] [place] [address] Ronald Mills MD [address] [place] [phone] documented as of this encounter Procedures [...] as of this encounter Care Teams Lockstitch Sleeve Setter Relationship Specialty Start Date End Date Caitlyn Bowie MD 3400 [facility] 1 [place] [address] PCP - General Internal Medicine 05/06/21 Henry Kelly MD Pulmonary Department 175 [facility], [address] [place] [address] Physician Pulmonary Disease 09/06/17 06/22/20 documented as of this encounter
--- OUTSIDE RECORDS SUMMARY | 2024-10-30 11:10 | XMS_ITS | Encounter Summary ---
Author Organization [facility] and [facility] Address [address] [place] [address] Care Team Providers Care Stain Maker Name Role Phone Caitlyn Bowie MD Primary Care Provider +1- [phone] Encounter Details Date Type Department Care Team (Late st Contact Info) Description 03/26/2015 Scanned Document [facility] at [address] [place] [phone] Norma Renee MD [address] [place] [phone] Social History Tobacco Use Types Packs/Day Years [...] EDT Office Visit Hematology Program at [address] - [address] [address] Ronald Mills MD [address] [place] [phone] documented as of this encounter Visit Diagnoses Not on filedocumented in this encounter Additional Health Concerns Infection Onset Date Last Indicated Resolved Time COVID-19 03/05/2022 03/05/2022 03/15/2022 7:18 PM EDT documented as of this encounter Care Teams Stain Maker Relationship Specialty Start Date End Date Caitlyn Bowie MD 3400 [facility] 1 [place] [address] PCP - General Internal Medicine 05/06/21 Henry Kelly MD Pulmonary Department 175 [facility], [address] [place] [address] Physician Pulmonary Disease 09/06/17 06/22/20 documented as of this encounter
--- OUTSIDE RECORDS SUMMARY | 2024-10-30 11:10 | XMS_ITS | Encounter Summary ---
Author Organization [facility] and [facility] Address [address] [place] [address] Care Team Providers Care Spinning Room Worker Name Role Phone Caitlyn Bowie MD Primary Care Provider +1- [phone] Encounter Details Date Type Department Care Team (Late st Contact Info) Description 12/04/2014 Scanned Document [facility] Health Information Management [address] [place] [address] External, Provider Social History Tobacco Use Types [...] Office Visit [facility] at [address] - [address] [place] [address] Ronald Mills MD [address] [place] [phone] documented as of this encounter Procedures Procedure Name Priority Date/Time Associated Diagnosis Comments LAB SCAN Routine 12/04/2014 documented in this encounter Results * Lab Scan (12/04/2014) Blood specimen (specimen) us Provider External LAB BLOOD ORDERABLES Final Res ult [facility] documented in this encounter Visit Diagnoses Not on filedocumented in this encounter Additional Health Concerns Infection Onset Date Last Indicated Resolved Time COVID-19 03/05/2022 03/05/2022 03/15/2022 7:18 PM EDT documented as of this encounter Care Teams Spinning Room Worker Relationship Specialty Start Date End Date Caitlyn Bowie MD 3400 [facility] 1 [place] [address] PCP - General Internal Medicine 05/06/21 Henry Kelly MD Pulmonary Department 175 [facility], [address] [place] [address] Physician Pulmonary Disease 09/06/17 06/22/20 documented as of this encounter
--- OUTSIDE RECORDS SUMMARY | 2024-10-30 11:10 | XMS_ITS | Encounter Summary ---
Author Organization [facility] and [facility] Address [address] [place] [address] Care Team Providers Care Trust Administrator Name Role Phone Caitlyn Bowie MD Primary Care Provider +1- [phone] Encounter Details Date Type Department Care Team (Late st Contact Info) Description 11/09/2020 Scanned Document INTERFACE DEFAULT [address] [place] [address] System, Provider Not In Social History Tobacco [...] Office Visit [facility] at [address] - [address] [place] [address] Ronald Mills MD [address] [place] [phone] documented as of this encounter Visit Diagnoses Not on filedocumented in this encounter Additional Health Concerns Infection Onset Date Last Indicated Resolved Time COVID-19 03/05/2022 03/05/2022 03/15/2022 7:18 PM EDT Assessment Noted Time PHQ-9 Depression Total Score: 2 11/07/19 19 2:06 PM EDT documented as of this encounter Care Teams Trust Administrator Relationship Specialty Start Date End Date Caitlyn Bowie MD [address] [address] PCP - General Internal Medicine 05/06/21 documented as of this encounter
--- OUTSIDE RECORDS SUMMARY | 2024-10-30 11:10 | XMS_ITS | Encounter Summary ---
Author Organization [facility] and [facility] Address [address] [place] [address] Care Team Providers Care Erco Machine Operator Name Role Phone Caitlyn Bowie MD Primary Care Provider +1- [phone] Encounter Details Date Type Department Care Team (Late Contact Info) Description 01/13/2021 Scanned Document [facility] at [address] [address] External, Provider Social History Tobacco Use Types [...] EDT Office Visit Hematology Program at [address] - [address] [place], [place] [address] Ronald Mills MD [address] [phone] documented as of this encounter [...] documented as of this encounter Care Teams Erco Machine Operator Relationship Specialty Start Date End Date Caitlyn Bowie MD [facility] [address] [address] PCP - General Internal Medicine 05/06/21 documented as of this encounter
--- OUTSIDE RECORDS SUMMARY | 2024-10-30 11:10 | XMS_ITS | Encounter Summary ---
Author Organization [facility] and [facility] Address [address] [place] [address] Care Team Providers Care Denture Model Maker Name Role Phone Caitlyn Bowie MD Primary Care Provider +1- [phone] Encounter Details Date Type Department Care Team (Late st Contact Info) Description 12/21/2020 Scanned Document INTERFACE DEFAULT [address] [place] [address] System, Provider Not In Social History Tobacco [...] Office Visit [facility] at [address] - [address] [place] [address] Ronald Mills MD [address] [place] [phone] documented as of this encounter Visit Diagnoses Not on filedocumented in this encounter Additional Health Concerns Infection Onset Date Last Indicated Resolved Time COVID-19 03/05/2022 03/05/2022 03/15/2022 7:18 PM EDT Assessment Noted Time PHQ-9 Depression Total Score: 2 11/07/19 19 2:06 PM EDT documented as of this encounter Care Teams Denture Model Maker Relationship Specialty Start Date End Date Caitlyn Bowie MD [address] [address] PCP - General Internal Medicine 05/06/21 documented as of this encounter
--- OUTSIDE RECORDS SUMMARY | 2024-10-30 11:10 | XMS_ITS | Encounter Summary ---
Author Organization [facility] and [facility] Address [address] [place] [address] Care Team Providers Care Auto Repair Shop Manager Name Role Phone Caitlyn Bowie MD Primary Care Provider +1- [phone] Encounter Details Date Type Department Care Team (Late st Contact Info) Description 02/08/2021 Scanned Document INTERFACE DEFAULT [address] [place] [address] System, Provider Not In Social History Tobacco [...] Office Visit [facility] at [address] - [address] [place] [address] Ronald Mills MD [address] [place] [phone] documented as of this encounter Visit Diagnoses Not on filedocumented in this encounter Additional Health Concerns Infection Onset Date Last Indicated Resolved Time COVID-19 03/05/2022 03/05/2022 03/15/2022 7:18 PM EDT Assessment Noted Time PHQ-9 Depression Total Score: 2 11/07/19 19 2:06 PM EDT documented as of this encounter Care Teams Auto Repair Shop Manager Relationship Specialty Start Date End Date Caitlyn Bowie MD [address] [address] PCP - General Internal Medicine 05/06/21 documented as of this encounter
--- OUTSIDE RECORDS SUMMARY | 2024-10-30 11:10 | XMS_ITS | Encounter Summary ---
Author Organization [facility] and [facility] Address [address] [place] [address] Care Team Providers Care Learning And Development Specialist Name Role Phone Caitlyn Bowie MD Primary Care Provider +1- [phone] Encounter Details Date Type Department Care Team (Late st Contact Info) Description 02/11/2021 Scanned Document INTERFACE DEFAULT [address] [place] [address] System, Provider Not In Social History Tobacco [...] [facility] [address] [place] [address] Ronald Mills MD [address] [place] [phone] documented as of this encounter Procedures [...] documented as of this encounter Care Teams Learning And Development Specialist Relationship Specialty Start Date End Date Caitlyn Bowie MD [address] [address] PCP - General Internal Medicine 05/06/21 documented as of this encounter
--- OUTSIDE RECORDS SUMMARY | 2024-10-30 11:10 | XMS_ITS | Encounter Summary ---
Author Organization [facility] and [facility] Address [address] [place] [address] Care Team Providers Care Press Department Manager Name Role Phone Caitlyn Bowie MD Primary Care Provider +1- [phone] Encounter Details Date Type Department Care Team (Late st Contact Info) Description 05/14/2015 Scanned Document [facility] Health Information Management [address] [place] [address] External, Provider Social History Tobacco Use Types [...] Office Visit [facility] at [address] - [address] [place] [address] Ronald Mills MD [address] [place] [phone] documented as of this encounter Visit Diagnoses Not on filedocumented in this encounter Additional Health Concerns Infection Onset Date Last Indicated Resolved Time COVID-19 03/05/2022 03/05/2022 03/15/2022 7:18 PM EDT documented as of this encounter Care Teams Press Department Manager Relationship Specialty Start Date End Date Caitlyn Bowie MD 3400 [facility] 1 [place] [address] PCP - General Internal Medicine 05/06/21 Henry Kelly MD Pulmonary Department 175 [facility], [address] [place] [address] Physician Pulmonary Disease 09/06/17 06/22/20 documented as of this encounter
--- OUTSIDE RECORDS SUMMARY | 2024-10-30 11:10 | XMS_ITS | Encounter Summary ---
Author Organization [facility] and [facility] Address [address] [place] [address] Care Team Providers Care Limb Driver Name Role Phone Caitlyn Bowie MD Primary Care Provider +1- [phone] Encounter Details Date Type Department Care Team (Late st Contact Info) Description 07/31/2015 Scanned Document [facility] Health Information Management [address] [place] [address] External, Provider Social History Tobacco Use Types [...] [facility] Visit [facility] at [address] - [address] [place] [address] Ronald Mills MD [address] [place] [phone] documented as of this encounter Procedures Procedure Name Priority Date/Time Associated Diagnosis Comments NUC MED/PET RESULT SCAN Routine 07/31/2015 documented in this encounter Results * Nuc Med/PET Result Scan (07/31/2015) us Provider External IMG SCAN REPORTS Edited Result - Final Performing Organization Address City/State/[facility] Co de Phone Number [facility] [place], [place], [facility] documented in this encounter Visit Diagnoses Not on filedocumented in this encounter Additional Health Concerns Infection Onset Date Last Indicated Resolved Time COVID-19 03/05/2022 03/05/2022 03/15/2022 7:18 PM EDT documented as of this encounter Care Teams Limb Driver Relationship Specialty Start Date End Date Caitlyn Bowie MD 3400 [facility] 1 [place] [address] PCP - General Internal Medicine 05/06/21 Henry Kelly MD Pulmonary Department 175 [facility], [address] [place] [address] Physician Pulmonary Disease 09/06/17 06/22/20 documented as of this encounter
--- OUTSIDE RECORDS SUMMARY | 2024-10-30 11:10 | XMS_ITS | Encounter Summary ---
Author Organization [facility] Address [address] [place] [address] Care Team Providers Care Inventory Control Manager Name Role Phone Caitlyn Bowie MD Primary Care Provider +1- [phone] Encounter Details Date Type Department Care Team (Late st Contact Info) Description 03/11/2015 Scanned Document [facility] Health Information Management [address] [place] [address] External, Provider Social History Tobacco Use Types [...] [facility] Visit [facility] at [address] - [address] [place] [address] Ronald Mills MD [address] [place] [phone] documented as of this encounter Procedures Procedure Name Priority Date/Time Associated Diagnosis Comments LAB SCAN Routine 03/11/2015 documented in this encounter Results * Lab Scan (03/11/2015) Blood specimen (specimen) us Provider External LAB BLOOD ORDERABLES Edited Re germánt - Final [facility] [place], [place], [facility] documented in this encounter Visit Diagnoses Not on filedocumented in this encounter Additional Health Concerns Infection Onset Date Last Indicated Resolved Time COVID-19 03/05/2022 03/05/2022 03/15/2022 7:18 PM EDT documented as of this encounter Care Teams Inventory Control Manager Relationship Specialty Start Date End Date Caitlyn Bowie MD 3400 [facility] 1 [place] [address] PCP - General Internal Medicine 05/06/21 Henry Kelly MD Pulmonary Department 175 [facility], [address] [place] [address] Physician Pulmonary Disease 09/06/17 06/22/20 documented as of this encounter
--- OUTSIDE RECORDS SUMMARY | 2024-10-30 11:10 | XMS_ITS | Encounter Summary ---
Author Organization [facility] and [facility] Address [address] [place] [address] Care Team Providers Care Rehabilitation Therapist Name Role Phone Caitlyn Bowie MD Primary Care Provider +1- [phone] Encounter Details Date Type Department Care Team (Late Contact Info) Description 01/27/2018 Scanned Document [facility] Health Information Management [address] [place] [address] External, Provider Social History Tobacco Use Types [...] Office Visit [facility] at [address] [place] [address] Ronald Mills MD [address] [place] [phone] documented as of this encounter Procedures [...] as of this encounter Care Teams Rehabilitation Therapist Relationship Specialty Start Date End Date Caitlyn Bowie MD 3400 [facility] 1 [place] [address] PCP - General Internal Medicine 05/06/21 Henry Kelly MD Pulmonary Department 175 [facility], [address] [place] [address] Physician Pulmonary Disease 09/06/17 06/22/20 documented as of this encounter
--- OUTSIDE RECORDS SUMMARY | 2024-10-30 11:10 | XMS_ITS | Encounter Summary ---
Author Organization [facility] and [facility] Address [address] [place] [address] Care Team Providers Care Track Template Maker Name Role Phone Caitlyn Bowie MD Primary Care Provider +1- [phone] Encounter Details Date Type Department Care Team (Late st Contact Info) Description 04/28/2015 Scanned Document [facility] Health Information Management [address] [place] [address] External, Provider Social History Tobacco Use Types [...] Office Visit [facility] at [address] [place] [address] Ronald Mills MD [address] [place] [phone] documented as of this encounter Procedures Procedure Name Priority Date/Time Associated Diagnosis Comments LAB SCAN Routine 04/28/2015 documented in this encounter Results * Lab Scan (04/28/2015) Blood specimen (specimen) us Provider External LAB BLOOD ORDERABLES Edited Re gerámnt - Final [facility] [place], [place], [facility] documented in this encounter Visit Diagnoses Not on filedocumented in this encounter Additional Health Concerns Infection Onset Date Last Indicated Resolved Time COVID-19 03/05/2022 03/05/2022 03/15/2022 7:18 PM EDT documented as of this encounter Care Teams Track Template Maker Relationship Specialty Start Date End Date Caitlyn Bowie MD 3400 [facility] 1 [place] [address] PCP - General Internal Medicine 05/06/21 Henry Kelly MD Pulmonary Department 175 [facility], [address] [place] [address] Physician Pulmonary Disease 09/06/17 06/22/20 documented as of this encounter
--- OUTSIDE RECORDS SUMMARY | 2024-10-30 11:10 | XMS_ITS | Encounter Summary ---
Author Organization [facility] and [facility] Address [address] [place] [address] Care Team Providers Care Data Governance Analyst Name Role Phone Caitlyn Bowie MD Primary Care Provider +1- [phone] Encounter Details Date Type Department Care Team (Late st Contact Info) Description 01/13/2021 Scanned Document [facility] at [address] [address] Ronald Mills MD [address] [place] [address] Social History Tobacco Use Types Packs/Day [...] EDT Office Visit Hematology Program at [address] - [address] [place] [address] Ronald Mills MD [address] [place] [address] documented as of this encounter Procedures Procedure [...] as of this encounter Care Teams Data Governance Analyst Relationship Specialty Start Date End Date Caitlyn Bowie MD [address] [address] PCP - General Internal Medicine 05/06/21 documented as of this encounter
--- OUTSIDE RECORDS SUMMARY | 2024-10-30 11:10 | XMS_ITS | Encounter Summary ---
Author Organization [facility] and [facility] Address [address] [place] [address] Care Team Providers Care Director Of Volunteer Services Name Role Phone Caitlyn Bowie MD Primary Care Provider +1- [phone] Encounter Details Date Type Department Care Team (Late st Contact Info) Description 01/27/2018 Scanned Document [facility] Health Information Management [address] [place] [address] External, Provider Social History Tobacco Use Types [...] Office Visit [facility] at [address] - [address] [place] [address] Ronald Mills MD [address] [place] [phone] documented as of this encounter Visit Diagnoses Not on filedocumented in this encounter Additional Health Concerns Infection Onset Date Last Indicated Resolved Time COVID-19 03/05/2022 03/05/2022 03/15/2022 7:18 PM EDT documented as of this encounter Care Teams Director Of Volunteer Services Relationship Specialty Start Date End Date Caitlyn Bowie MD 3400 [facility] 1 [place] [address] PCP - General Internal Medicine 05/06/21 Henry Kelly MD Pulmonary Department [address] [place] [address], [address] [place] [address] Physician Pulmonary Disease 09/06/17 06/22/20 documented as of this encounter
--- OUTSIDE RECORDS SUMMARY | 2024-10-30 11:10 | XMS_ITS | Encounter Summary ---
Author Organization [facility] and [facility] Address [address] [place] [address] Care Team Providers Care Programming Instructor Name Role Phone Caitlyn Bowie MD Primary Care Provider +1- [phone] Encounter Details Date Type Department Care Team (Late st Contact Info) Description 04/16/2018 Scanned Document [facility] Health Information Management [address] [place] [address] External, Provider Social History Tobacco Use Types [...] Office Visit [facility] at [address] - [address] [place] [address] Ronald Mills MD [address] [place] [phone] documented as of this encounter Visit Diagnoses Not on filedocumented in this encounter Additional Health Concerns Infection Onset Date Last Indicated Resolved Time COVID-19 03/05/2022 03/05/2022 03/15/2022 7:18 PM EDT documented as of this encounter Care Teams Programming Instructor Relationship Specialty Start Date End Date Caitlyn Bowie MD 3400 [facility] 1 [place] [address] PCP - General Internal Medicine 05/06/21 Henry Kelly MD Pulmonary Department [address] [place] [address], [address] [place] [address] Physician Pulmonary Disease 09/06/17 06/22/20 documented as of this encounter
--- OUTSIDE RECORDS SUMMARY | 2024-10-30 11:10 | XMS_ITS | Encounter Summary ---
Author Organization [facility] and [facility] Address [address] [place] [address] Care Team Providers Care Orthopedic Nurse Practitioner Name Role Phone Caitlyn Bowie MD Primary Care Provider +1- [phone] Encounter Details Date Type Department Care Team (Late Contact Info) Description 02/02/2021 Scanned Document [facility] Health Information Management [address] [place] [address] External, Provider Social History Tobacco Use Types [...] Office Visit [facility] at [address] - [address] [place] [address] Ronald Mills MD [address] [place] [phone] documented as of this encounter Visit Diagnoses Not on filedocumented in this encounter Additional Health Concerns Infection Onset Date Last Indicated Resolved Time COVID-19 03/05/2022 03/05/2022 03/15/2022 7:18 PM EDT Assessment Noted Time PHQ-9 Depression Total Score: 2 11/07/19 19 2:06 PM EDT documented as of this encounter Care Teams Orthopedic Nurse Practitioner Relationship Specialty Start Date End Date Caitlyn Bowie MD [address] [address] PCP - General Internal Medicine 05/06/21 documented as of this encounter
--- OUTSIDE RECORDS SUMMARY | 2024-10-30 11:10 | XMS_ITS | Encounter Summary ---
Author Organization [facility] and [facility] Address [address] [place] [address] Care Team Providers Care Edger Liner Name Role Phone Caitlyn Bowie MD Primary Care Provider +1- [phone] Encounter Details Date Type Department Care Team (Late st Contact Info) Description 11/07/2014 Scanned Document [facility] Health Information Management [address] [place] [address] External, Provider Social History Tobacco Use Types [...] Office Visit [facility] at [address] - [address] [place] [address] Ronald Mills MD [address] [place] [phone] documented as of this encounter Visit Diagnoses Not on filedocumented in this encounter Additional Health Concerns Infection Onset Date Last Indicated Resolved Time COVID-19 03/05/2022 03/05/2022 03/15/2022 7:18 PM EDT documented as of this encounter Care Teams Edger Liner Relationship Specialty Start Date End Date Caitlyn Bowie MD 3400 [facility] 1 [place] [address] PCP - General Internal Medicine 05/06/21 Henry Kelly MD Pulmonary Department 175 [facility], [address] [place] [address] Physician Pulmonary Disease 09/06/17 06/22/20 documented as of this encounter
--- OUTSIDE RECORDS SUMMARY | 2024-10-30 11:10 | XMS_ITS | Encounter Summary ---
Author Organization [facility] and [facility] Address [address] [place] [address] Care Team Providers Care Neon Installer Name Role Phone Caitlyn Bowie MD Primary Care Provider +1- [phone] Encounter Details Date Type Department Care Team ([facility] st Contact Info) Description 08/26/2014 Documentation [facility] [address] [place] [address] Shilpi Ibarra [address] [place] [address] Social History Tobacco Use Types Packs/Day Years [...] from the original note were not included. [facility] Progress Note This is a 69 y.o. female who was provided services by [employer]. Service Provided By:: Shilpi Ibarra Patient Status: return Length of Appointment: 60 minutes documented in this encounter Plan of Treatment Upcoming Encounters Date Type Department Care Team ([facility] st Contact Info) Description 10/31/2024 1:00 PM EDT Office Visit [facility] at [facility] [address] [place] [address] [facility] [place] [address] Ronald Mills MD 240 [facility] [address]1 [place] [address] documented as of this encounter Visit Diagnoses Not on filedocumented in this encounter Additional Health Concerns Infection Onset Date Last Indicated Resolved Time COVID-19 03/05/2022 03/05/2022 03/15/2022 7:18 PM EDT documented as of this encounter Care Teams Neon Installer Relationship Specialty Start Date End Date Caitlyn Bowie MD 3400 [facility] 1 [place] [address] PCP - General Internal Medicine 05/06/21 Henry Kelly MD Pulmonary Department 175 [facility], [address] [place] [address] Physician Pulmonary Disease 09/06/17 06/22/20 documented as of this encounter
--- OUTSIDE RECORDS SUMMARY | 2024-10-30 11:10 | XMS_ITS | Encounter Summary ---
Author Organization [facility] and [facility] Address [address] [place] [address] Care Team Providers Care Cost Coordinator Name Role Phone Caitlyn Bowie MD Primary Care Provider +1- [phone] Encounter Details Date Type Department Care Team (Late Contact Info) Description 01/28/2018 Scanned Document [facility] Health Information Management [address] [place] [address] External, Provider Social History Tobacco Use Types [...] Office Visit [facility] at [address] - [address] [place] [address] Ronald Mills MD [address] [place] [phone] documented as of this encounter Procedures [...] as of this encounter Care Teams Cost Coordinator Relationship Specialty Start Date End Date Caitlyn Bowie MD 3400 [facility] 1 [place] [address] PCP - General Internal Medicine 05/06/21 Henry Kelly MD Pulmonary Department [address] [place] [address], [address] [place] [address] Physician Pulmonary Disease 09/06/17 06/22/20 documented as of this encounter
--- OUTSIDE RECORDS SUMMARY | 2024-10-30 11:11 | XMS_ITS | Encounter Summary ---
Author Organization [facility] and [facility] Address [address] [place] [address] Care Team Providers Care Fire Protection Specialist Name Role Phone Caitlyn Bowie MD Primary Care Provider +1- [phone] Encounter Details Date Type Department Care Team (Late st Contact Info) Description 04/26/2021 Scanned Document INTERFACE DEFAULT [address] [place] [address] System, Provider Not In Social History Tobacco [...] Office Visit [facility] at [address] - [address] [place] [address] Ronald Mills MD [address] [place] [phone] documented as of this encounter Procedures [...] as of this encounter Care Teams Fire Protection Specialist Relationship Specialty Start Date End Date Caitlyn Bowie MD [address] [address] PCP - General Internal Medicine 05/06/21 documented as of this encounter
--- OUTSIDE RECORDS SUMMARY | 2024-10-30 11:11 | XMS_ITS | Encounter Summary ---
Author Organization [facility] and [facility] Address [address] [place] [address] Care Team Providers Care Project Production Engineer Name Role Phone Caitlyn Bowie MD Primary Care Provider +1- [phone] Encounter Details Date Type Department Care Team (Late st Contact Info) Description 06/07/2021 Scanned Document [facility] at [address] [address] Norma Renee MD [address] [place] [address] Social History Tobacco Use Types Packs/Day [...] EDT Office Visit Hematology Program at [address] - [address] [place] [address] Ronald Mills MD [address] [place] [address] documented as of this encounter Visit Diagnoses Not on filedocumented in this encounter Additional Health Concerns Infection Onset Date Last Indicated Resolved Time COVID-19 03/05/2022 03/05/2022 03/15/2022 7:18 PM EDT Assessment Noted Time PHQ-9 Depression Total Score: 2 11/07/19 19 2:06 PM EDT documented as of this encounter Care Teams Project Production Engineer Relationship Specialty Start Date End Date Caitlyn Bowie MD [address] [address] PCP - General Internal Medicine 05/06/21 documented as of this encounter
--- OUTSIDE RECORDS SUMMARY | 2024-10-30 11:11 | XMS_ITS | Encounter Summary ---
Author Organization [facility] and [facility] Address [address] [place] [address] Care Team Providers Care Confidential Secretary Name Role Phone Caitlyn Bowie MD Primary Care Provider +1- [phone] Encounter Details Date Type Department Care Team (Late st Contact Info) Description 04/27/2021 Scanned Document INTERFACE DEFAULT [address] [place] [address] System, Provider Not In Social History Tobacco [...] Office Visit [facility] at [address] - [address] [place] [address] Ronald Mills MD [address] [place] [phone] documented as of this encounter Procedures [...] End Date Caitlyn Bowie MD [address] [address] PCP - General Internal Medicine 05/06/21 documented as of this encounter
--- OUTSIDE RECORDS SUMMARY | 2024-10-30 11:11 | XMS_ITS | Encounter Summary ---
Author Organization [facility] and [facility] Address [address] [place] [address] Care Team Providers Care Insulation Machine Operator Name Role Phone Caitlyn Bowie MD Primary Care Provider +1- [phone] Encounter Details Date Type Department Care Team (Late st Contact Info) Description 07/22/2021 Scanned Document INTERFACE DEFAULT [address] [place] [phone] System, Provider Not In Social History Tobacco [...] Program at [address] [place] [address] Ronald Mills MD [address] [place] [phone] documented as of this encounter Procedures [...] as of this encounter Care Teams Insulation Machine Operator Relationship Specialty Start Date End Date Caitlyn Bowie MD [address] [address] PCP - General Internal Medicine 05/06/21 documented as of this encounter
--- OUTSIDE RECORDS SUMMARY | 2024-10-30 11:11 | XMS_ITS | Encounter Summary ---
Author Organization [facility] and [facility] Address [address] [place] [address] Care Team Providers Care Ld Teacher Name Role Phone Caitlyn Bowie MD Primary Care Provider +1- [phone] Encounter Details Date Type Department Care Team (Late Contact Info) Description 07/26/2018 Scanned Document [facility] Health Information Management [address] [place] [address] External, Provider Social History Tobacco Use Types [...] Office Visit [facility] at [address] [place] [address] - [address] [place] [address] Ronald Mills MD [address] [place] [phone] documented as of this encounter Procedures [...] documented as of this encounter Care Teams Ld Teacher Relationship Specialty Start Date End Date Caitlyn Bowie MD 3400 [facility] 1 [place] [address] PCP - General Internal Medicine 05/06/21 Henry Kelly MD Pulmonary Department 175 [facility], [address] [place] [address] Physician Pulmonary Disease 09/06/17 06/22/20 documented as of this encounter
--- OUTSIDE RECORDS SUMMARY | 2024-10-30 11:11 | XMS_ITS | Encounter Summary ---
Author Organization [facility] and [facility] Address [address] [place] [address] Care Team Providers Care Director Of Construction Name Role Phone Caitlyn Bowie MD Primary Care Provider +1- [phone] Reason for Visit * Reason Comments Advice Only mass Encounter Details Date Type Department Care Team (Late st Contact Info) Description 09/06/2021 Telephone [facility] at [address] [phone] Ronald Mills MD [address] [place] [phone] Advice Only (mass) Social History Tobacco [...] EDT Office Visit Hematology Program at [address] [place] [address] Ronald Mills MD 240 [facility] A1 [place] [address] documented as of this encounter Visit Diagnoses Not on filedocumented in this encounter Additional Health Concerns Infection Onset Date Last Indicated Resolved Time COVID-19 03/05/2022 03/05/2022 03/15/2022 7:18 PM EDT Assessment Noted Time PHQ-9 Depression Total Score: 2 11/07/19 19 2:06 PM EDT documented as of this encounter Care Teams Director Of Construction Relationship Specialty Start Date End Date Caitlyn Bowie MD [address] [address] PCP - General Internal Medicine 05/06/21 documented as of this encounter
--- OUTSIDE RECORDS SUMMARY | 2024-10-30 11:11 | XMS_ITS | Encounter Summary ---
Author Organization [facility] Address [address] [place] [address] Care Team Providers Care Commercial Credit Analyst Name Role Phone Caitlyn Bowie MD Primary Care Provider +1- [phone] Encounter Details Date Type Department Care Team (Late Contact Info) Description 03/14/2018 Scanned Document [facility] Health Information Management [address] [place] [address] External, Provider Social History Tobacco Use Types [...] Office Visit [facility] at [address] [place] [address] Ronald Mills MD [address] [place] [phone] documented as of this encounter Procedures [...] as of this encounter Care Teams Commercial Credit Analyst Relationship Specialty Start Date End Date Caitlyn Bowie MD 3400 [facility] 1 [place] [address] PCP - General Internal Medicine 05/06/21 Henry Kelly MD Pulmonary Department [address] [employer], [address] [place] [address] Physician Pulmonary Disease 09/06/17 06/22/20 documented as of this encounter
--- OUTSIDE RECORDS SUMMARY | 2024-10-30 11:11 | XMS_ITS | Encounter Summary ---
Author Organization [facility] and [facility] Address [address] [place] [address] Care Team Providers Care Director Client Name Role Phone Caitlyn Bowie MD Primary Care Provider +1- [phone] Encounter Details Date Type Department Care Team (Late st Contact Info) Description 05/05/2021 Scanned Document INTERFACE DEFAULT [address] [place] [address] System, Provider Not In Social History Tobacco [...] Office Visit [facility] at [address] [place] [address] oRnald Mills MD [address] [place] [phone] documented as of this encounter Visit Diagnoses Not on filedocumented in this encounter Additional Health Concerns Infection Onset Date Last Indicated Resolved Time COVID-19 03/05/2022 03/05/2022 03/15/2022 7:18 PM EDT Assessment Noted Time PHQ-9 Depression Total Score: 2 11/07/19 19 2:06 PM EDT documented as of this encounter Care Teams Director Client Relationship Specialty Start Date End Date Caitlyn Bowie MD [address] [address] PCP - General Internal Medicine 05/06/21 documented as of this encounter
--- OUTSIDE RECORDS SUMMARY | 2024-10-30 11:11 | XMS_ITS | Encounter Summary ---
Author Organization [facility] and [facility] Address [address] [place] [address] Care Team Providers Care Automobile Service Station Mechanic Name Role Phone Caitlyn Bowie MD Primary Care Provider +1- [phone] Encounter Details Date Type Department Care Team (Late st Contact Info) Description 04/28/2021 Scanned Document INTERFACE DEFAULT [address] [place] [address] System, Provider Not In Social History Tobacco [...] Office Visit [facility] at [address] [place] [address] Ronald Mills MD [address] [place] [phone] documented as of this encounter Procedures [...] as of this encounter Care Teams Automobile Service Station Mechanic Relationship Specialty Start Date End Date Caitlyn Bowie MD [address] [address] PCP - General Internal Medicine 05/06/21 documented as of this encounter
--- OUTSIDE RECORDS SUMMARY | 2024-10-30 11:11 | XMS_ITS | Encounter Summary ---
Author Organization [facility] and [facility] Address [address] [place] [address] Care Team Providers Care Fire Extinguisher Inspector Name Role Phone Caitlyn Bowie MD Primary Care Provider +1- [phone] Encounter Details Date Type Department Care Team (Late st Contact Info) Description 04/29/2021 Scanned Document INTERFACE DEFAULT [address] [place] [address] System, Provider Not In Social History Tobacco [...] Office Visit [facility] at [address] [place] [address] Ronald Mills MD [address] [place] [phone] documented as of this encounter Procedures [...] End Date Caitlyn Bowie MD [address] [address] PCP - General Internal Medicine 05/06/21 documented as of this encounter
--- OUTSIDE RECORDS SUMMARY | 2024-10-30 11:11 | XMS_ITS | Encounter Summary ---
Author Organization [facility] and [facility] Address [address] [place] [address] Care Team Providers Care Company Laundry Worker Name Role Phone Caitlyn Bowie MD Primary Care Provider +1- [phone] Reason for Visit * Reason Comments Advice Only Encounter Details Date Type Department Care Team ([facility] st Contact Info) Description 06/01/2021 Telephone [facility] at [address] [phone] Ronald Mills MD [address] [place] [phone] Advice Only Social History Tobacco Use [...] added that she's called before and sent [employer] messages but hasn't received a reply,[phone]. documented in this encounter Plan of Treatment Upcoming Encounters Date Type Department Care Team (Late st Contact Info) Description 10/31/2024 1:00 PM EDT Office Visit [facility] at [address] [place] [address] Ronald Mills MD 240 [facility] A1 [place] [address] documented as of this encounter Visit Diagnoses Not on filedocumented in this encounter Additional Health Concerns Infection Onset Date Last Indicated Resolved Time COVID-19 03/05/2022 03/05/2022 03/15/2022 7:18 PM EDT Assessment Noted Time PHQ-9 Depression Total Score: 2 11/07/19 19 2:06 PM EDT documented as of this encounter Care Teams Company Laundry Worker Relationship Specialty Start Date End Date Caitlyn Bowie MD [address] [address] PCP - General Internal Medicine 05/06/21 documented as of this encounter
--- OUTSIDE RECORDS SUMMARY | 2024-10-30 11:11 | XMS_ITS | Encounter Summary ---
Author Organization [facility] Address [address] [place] [address] Care Team Providers Care Strategic Accounts Manager Name Role Phone Caitlyn Bowie MD Primary Care Provider +1- [phone] Encounter Details Date Type Department Care Team (Late st Contact Info) Description 06/08/2021 Scanned Document INTERFACE DEFAULT [address] [place] [address] System, Provider Not In Social History Tobacco [...] Office Visit [facility] at [address] [place] [address] Ronald Mills MD [address] [place] [phone] documented as of this encounter Procedures [...] as of this encounter Care Teams Strategic Accounts Manager Relationship Specialty Start Date End Date Caitlyn Bowie MD [facility] [address] [address] PCP - General Internal Medicine 05/06/21 documented as of this encounter
--- OUTSIDE RECORDS SUMMARY | 2024-10-30 11:11 | XMS_ITS | Encounter Summary ---
Author Organization [facility] Address [address] [place] [address] Care Team Providers Care National Sales Manager Name Role Phone Caitlyn Bowie MD Primary Care Provider +1- [phone] Encounter Details Date Type Department Care Team (Late st Contact Info) Description 10/15/2018 Scanned Document [facility] Health Information Management [address] [place] [phone] External, Provider Social History Tobacco Use Types [...] Office Visit [facility] at [address] [place] [address] Ronald Mills MD [address] [place] [phone] documented as of this encounter Visit Diagnoses Not on filedocumented in this encounter Additional Health Concerns Infection Onset Date Last Indicated Resolved Time COVID-19 03/05/2022 03/05/2022 03/15/2022 7:18 PM EDT documented as of this encounter Care Teams National Sales Manager Relationship Specialty Start Date End Date Caitlyn Bowie MD 3400 [facility] 1 [place] [address] PCP - General Internal Medicine 05/06/21 Henry Kelly MD Pulmonary Department [address] [place] [address], [address] [place] [address] Physician Pulmonary Disease 09/06/17 06/22/20 documented as of this encounter
--- OUTSIDE RECORDS SUMMARY | 2024-10-30 11:11 | XMS_ITS | Encounter Summary ---
Author Organization [facility] and [facility] Address [address] [place] [address] Care Team Providers Care Handicapped Teacher Name Role Phone Caitlyn Bowie MD Primary Care Provider +1- [phone] Encounter Details Date Type Department Care Team (Late st Contact Info) Description 09/02/2021 Scanned Document INTERFACE DEFAULT [address] [place] [address] System, Provider Not In Social History Tobacco [...] Office Visit [facility] at [address] [place] [address] Ronald Mills MD [address] [place] [phone] documented as of this encounter Procedures [...] documented as of this encounter Care Teams Handicapped Teacher Relationship Specialty Start Date End Date Caitlyn Bowie MD [address] [address] PCP - General Internal Medicine 05/06/21 documented as of this encounter
--- OUTSIDE RECORDS SUMMARY | 2024-10-30 11:11 | XMS_ITS | Encounter Summary ---
Author Organization [facility] and [facility] Address [address] [place] [address] Care Team Providers Care Parking Officer Name Role Phone Caitlyn Bowie MD Primary Care Provider +1- [phone] Encounter Details Date Type Department Care Team (Late Contact Info) Description 07/30/2018 Scanned Document [facility] Health Information Management [address] [place] [address] External, Provider Social History Tobacco Use Types [...] Hematology Program at [address] [place] [address] Ronald Mills MD [address] [place] [phone] documented as of this encounter Procedures [...] as of this encounter Care Teams Parking Officer Relationship Specialty Start Date End Date Caitlyn Bowie MD 3400 [facility] 1 [place] [address] PCP - General Internal Medicine 05/06/21 Henry Kelly MD Pulmonary Department [address] [place] [address], [address] [place] [address] Physician Pulmonary Disease 09/06/17 06/22/20 documented as of this encounter
--- OUTSIDE RECORDS SUMMARY | 2024-10-30 11:11 | XMS_ITS | Encounter Summary ---
Author Organization [facility] and [facility] Address [address] [place] [address] Care Team Providers Care Purchasing And Fiscal Clerk Name Role Phone Caitlyn Bowie MD Primary Care Provider +1- [phone] Encounter Details Date Type Department Care Team (Late st Contact Info) Description 06/07/2021 Scanned Document [facility] at [address] [address] Norma Renee MD [address] [place] [phone] Social History Tobacco Use Types Packs/Day [...] EDT Office Visit Hematology Program at [address] [place] [address] Ronald Mills MD [address] [place] [address] documented as of this encounter Visit Diagnoses Not on filedocumented in this encounter Additional Health Concerns Infection Onset Date Last Indicated Resolved Time COVID-19 03/05/2022 03/05/2022 03/15/2022 7:18 PM EDT Assessment Noted Time PHQ-9 Depression Total Score: 2 11/07/19 19 2:06 PM EDT documented as of this encounter Care Teams Purchasing And Fiscal Clerk Relationship Specialty Start Date End Date Caitlyn Bowie MD [address] [address] PCP - General Internal Medicine 05/06/21 documented as of this encounter
--- OUTSIDE RECORDS SUMMARY | 2024-10-30 11:11 | XMS_ITS | Encounter Summary ---
Author Organization [facility] and [facility] Address [address] [place] [address] Care Team Providers Care Summer Sessions Director Name Role Phone Caitlyn Bowie MD Primary Care Provider +1- [phone] Encounter Details Date Type Department Care Team (Late Contact Info) Description 07/28/2018 Scanned Document [facility] Health Information Management [address] [place] [address] External, Provider Social History Tobacco Use Types [...] Office Visit [facility] at [address] [place] [address] Ronald Mills MD [address] [place] [phone] documented as of this encounter Procedures [...] documented as of this encounter Care Teams Summer Sessions Director Relationship Specialty Start Date End Date Caitlyn Bowie MD 3400 [facility] 1 [place] [address] PCP - General Internal Medicine 05/06/21 Henry Kelly MD Pulmonary Department [address] [place] [address], [address] [place] [address] Physician Pulmonary Disease 09/06/17 06/22/20 documented as of this encounter
--- OUTSIDE RECORDS SUMMARY | 2024-10-30 11:11 | XMS_ITS | Encounter Summary ---
Author Organization [facility] Address [address] [place] [address] Care Team Providers Care Pull Through Hooker Name Role Phone Caitlyn Bowie MD Primary Care Provider +1- [phone] Encounter Details Date Type Department Care Team (Late st Contact Info) Description 09/07/2021 Scanned Document INTERFACE DEFAULT [address] [place] [address] System, Provider Not In Social History Tobacco [...] Office Visit [facility] at [address] [place] [address] Ronald Mills MD [address] [place] [phone] documented as of this encounter Procedures [...] as of this encounter Care Teams Pull Through Hooker Relationship Specialty Start Date End Date Caitlyn Bowie MD [address] [address] PCP - General Internal Medicine 05/06/21 documented as of this encounter
--- OUTSIDE RECORDS SUMMARY | 2024-10-30 11:11 | XMS_ITS | Encounter Summary ---
Author Organization [facility] and [facility] Address [address] [place] [address] Care Team Providers Care Retirement Village Manager Name Role Phone Caitlyn Bowie MD Primary Care Provider +1- [phone] Encounter Details Date Type Department Care Team (Late Contact Info) Description 05/17/2021 Scanned Document [facility] at [address] [address] External, Provider Social History Tobacco Use Types [...] EDT Office Visit Hematology Program at [address] [place], [place] [address] Ronald Mills MD [address] [phone] documented as of this encounter [...] documented as of this encounter Care Teams Retirement Village Manager Relationship Specialty Start Date End Date Caitlyn Bowie MD [facility] [address] [address] PCP - General Internal Medicine 05/06/21 documented as of this encounter
--- OUTSIDE RECORDS SUMMARY | 2024-10-30 11:11 | XMS_ITS | Encounter Summary ---
Author Organization [facility] and [facility] Address [address] [place] [address] Care Team Providers Care Phlebotomy Lab Assistant Name Role Phone Caitlyn Bowie MD Primary Care Provider +1- [phone] Encounter Details Date Type Department Care Team (Late st Contact Info) Description 04/24/2021 Scanned Document INTERFACE DEFAULT [address] [place] [address] System, Provider Not In Social History Tobacco [...] Office Visit [facility] at [address] [place] [address] Ronald Mills MD [address] [place] [phone] documented as of this encounter Procedures [...] documented as of this encounter Care Teams Phlebotomy Lab Assistant Relationship Specialty Start Date End Date Caitlyn Bowie MD [address] [phone] PCP - General Internal Medicine 05/06/21 documented as of this encounter
--- OUTSIDE RECORDS SUMMARY | 2024-10-30 11:11 | XMS_ITS | Encounter Summary ---
Author Organization [facility] and [facility] Address [address] [place] [address] Care Team Providers Care Well Driller Name Role Phone Caitlyn Bowie MD Primary Care Provider +1- [phone] Encounter Details Date Type Department Care Team (Late st Contact Info) Description 09/10/2021 Scanned Document Cardiovascular Medicine at [address] [place] [address] Norma Renee MD [address] [place] [phone] Social History Tobacco Use Types Packs/Day [...] EDT Office Visit Hematology Program at [address] - [address] [address] Ronald Mills MD [address] [place] [phone] documented as of this encounter Visit Diagnoses Not on filedocumented in this encounter Additional Health Concerns Infection Onset Date Last Indicated Resolved Time COVID-19 03/05/2022 03/05/2022 03/15/2022 7:18 PM EDT Assessment Noted Time PHQ-9 Depression Total Score: 2 11/07/19 19 2:06 PM EDT documented as of this encounter Care Teams Well Driller Relationship Specialty Start Date End Date Caitlyn Bowie MD [address] [address] PCP - General Internal Medicine 05/06/21 documented as of this encounter
--- OUTSIDE RECORDS SUMMARY | 2024-10-30 11:11 | XMS_ITS | Encounter Summary ---
Author Organization [facility] Address [address] [place] [address] Care Team Providers Care Computer Hardware Technician Name Role Phone Caitlyn Bowie MD Primary Care Provider +1- [phone] Encounter Details Date Type Department Care Team (Late Contact Info) Description 11/18/2021 Scanned Document [facility] Health Information Management [address] [place] [address] External, Provider Social History Tobacco Use Types [...] Office Visit [facility] at [address] [place] [address] Ronald Mills MD [address] [place] [phone] documented as of this encounter Visit Diagnoses Not on filedocumented in this encounter Additional Health Concerns Infection Onset Date Last Indicated Resolved Time COVID-19 03/05/2022 03/05/2022 03/15/2022 7:18 PM EDT Assessment Noted Time PHQ-9 Depression Total Score: 2 11/07/19 19 2:06 PM EDT documented as of this encounter Care Teams Computer Hardware Technician Relationship Specialty Start Date End Date Caitlyn Bowie MD [address] [address] PCP - General Internal Medicine 05/06/21 documented as of this encounter
--- OUTSIDE RECORDS SUMMARY | 2024-10-30 11:11 | XMS_ITS | Encounter Summary ---
Author Organization [facility] [place] [facility] and [facility] Address [address] [place] [address] Care Team Providers Care Paper Plate Machine Tender Name Role Phone Caitlyn Bowie MD Primary Care Provider +1- [phone] Reason for Visit * Reason Comments FYI Encounter Details Date Type Department Care Team (Late st Contact Info) Description 05/24/2021 Telephone [facility] at [facility] at [address] [place] [address] [address] [place], [place] [phone] Solo Henry MD [address] [place] [phone] FYI Social History Tobacco Use Types [...] Office Visit [facility] at [address] [place] [address] Ronald Mills MD 240 [facility] A1 [place] [address] documented as of this encounter Visit Diagnoses Not on filedocumented in this encounter Additional Health Concerns Infection Onset Date Last Indicated Resolved Time COVID-19 03/05/2022 03/05/2022 03/15/2022 7:18 PM EDT Assessment Noted Time PHQ-9 Depression Total Score: 2 11/07/19 19 2:06 PM EDT documented as of this encounter Care Teams Paper Plate Machine Tender Relationship Specialty Start Date End Date Caitlyn Bowie MD [address] [address] PCP - General Internal Medicine 05/06/21 documented as of this encounter
--- OUTSIDE RECORDS SUMMARY | 2024-10-30 11:11 | XMS_ITS | Encounter Summary ---
Author Organization [facility] and [facility] Address [address] [place] [address] Care Team Providers Care Clay Mixer Name Role Phone Caitlyn Bowie MD Primary Care Provider +1- [phone] Encounter Details Date Type Department Care Team (Late st Contact Info) Description 12/28/2021 Scanned Document INTERFACE DEFAULT [address] [place] [address] System, Provider Not In Social History Tobacco [...] Office Visit [facility] at [address] [place] [address] Ronald Mills MD [address] [place] [phone] documented as of this encounter Visit Diagnoses Not on filedocumented in this encounter Additional Health Concerns Infection Onset Date Last Indicated Resolved Time COVID-19 03/05/2022 03/05/2022 03/15/2022 7:18 PM EDT Assessment Noted Time PHQ-9 Depression Total Score: 2 11/07/19 19 2:06 PM EDT documented as of this encounter Care Teams Clay Mixer Relationship Specialty Start Date End Date Caitlyn Bowie MD [address] [address] PCP - General Internal Medicine 05/06/21 documented as of this encounter
--- OUTSIDE RECORDS SUMMARY | 2024-10-30 11:11 | XMS_ITS | Encounter Summary ---
Author Organization [facility] and [facility] Address [address] [place] [address] Care Team Providers Care Farmworker Field Crop Name Role Phone Caitlyn Bowie MD Primary Care Provider +1- [phone] Encounter Details Date Type Department Care Team (Late st Contact Info) Description 11/19/2021 Scanned Document Cardiovascular Medicine at [address] [address] Norma Renee MD [address] [place] [phone] Social History Tobacco Use Types Packs/Day [...] EDT Office Visit Hematology Program at [address] - [address] [phone] Ronald Mills MD [address] [place] [phone] documented as of this encounter Visit Diagnoses Not on filedocumented in this encounter Additional Health Concerns Infection Onset Date Last Indicated Resolved Time COVID-19 03/05/2022 03/05/2022 03/15/2022 7:18 PM EDT Assessment Noted Time PHQ-9 Depression Total Score: 2 11/07/19 19 2:06 PM EDT documented as of this encounter Care Teams Farmworker Field Crop Relationship Specialty Start Date End Date Caitlyn Bowie MD [address] [address] PCP - General Internal Medicine 05/06/21 documented as of this encounter
--- OUTSIDE RECORDS SUMMARY | 2024-10-30 11:11 | XMS_ITS | Encounter Summary ---
Author Organization [facility] and [facility] Address [address] [place] [address] Care Team Providers Care Railroad Track Repair Supervisor Name Role Phone Caitlyn Bowie MD Primary Care Provider +1- [phone] Encounter Details Date Type Department Care Team (Late Contact Info) Description 10/29/2021 Scanned Document [facility] Health Information Management [address] [place] [address] External, Provider Social History Tobacco Use Types [...] [facility] at [address] [place] [address] Ronald Mills MD [address] [place] [phone] documented as of this encounter Procedures [...] as of this encounter Care Teams Railroad Track Repair Supervisor Relationship Specialty Start Date End Date Caitlyn Bowie MD [address] [address] PCP - General Internal Medicine 05/06/21 documented as of this encounter
--- OUTSIDE RECORDS SUMMARY | 2024-10-30 11:11 | XMS_ITS | Encounter Summary ---
Author Organization [facility] and [facility] Address [address] [place] [address] Care Team Providers Care Well Logging Operator Mud Analysis Name Role Phone Caitlyn Bowie MD Primary Care Provider +1- [phone] Encounter Details Date Type Department Care Team (Late Contact Info) Description 04/03/2018 Scanned Document [facility] [address] [place] [address] Provider, historical . Social History Tobacco Use [...] PM EDT Office Visit Hematology Program at [address] - [address] [place] [address] Ronald Mills MD [address] [place] [phone] documented as of this encounter Procedures [...] as of this encounter Care Teams Well Logging Operator Mud Analysis Relationship Specialty Start Date End Date Caitlyn Bowie MD 3400 [facility] 1 [place] [address] PCP - General Internal Medicine 05/06/21 Henry Kelly MD Pulmonary Department [address] [facility], [address] [place] [address] Physician Pulmonary Disease 09/06/17 06/22/20 documented as of this encounter
--- OUTSIDE RECORDS SUMMARY | 2024-10-30 11:11 | XMS_ITS | Encounter Summary ---
Author Organization [facility] and [facility] Address [address] [place] [address] Care Team Providers Care Consultants Intern Name Role Phone Caitlyn Bowie MD Primary Care Provider +1- [phone] Encounter Details Date Type Department Care Team (Late st Contact Info) Description 09/09/2021 Scanned Document INTERFACE DEFAULT [address] [place] [address] System, Provider Not In Social History Tobacco [...] Office Visit [facility] at [address] - [address] [place] [address] Ronald Mills MD [address] [place] [phone] documented as of this encounter Visit Diagnoses Not on filedocumented in this encounter Additional Health Concerns Infection Onset Date Last Indicated Resolved Time COVID-19 03/05/2022 03/05/2022 03/15/2022 7:18 PM EDT Assessment Noted Time PHQ-9 Depression Total Score: 2 11/07/19 19 2:06 PM EDT documented as of this encounter Care Teams Consultants Intern Relationship Specialty Start Date End Date Caitlyn Bowie MD [address] [address] PCP - General Internal Medicine 05/06/21 documented as of this encounter
--- OUTSIDE RECORDS SUMMARY | 2024-10-30 11:11 | XMS_ITS | Encounter Summary ---
Author Organization [facility] and [facility] Address [address] [place] [address] Care Team Providers Care Cinder Worker Name Role Phone Caitlyn Bowie MD Primary Care Provider +1- [phone] Encounter Details Date Type Department Care Team (Late st Contact Info) Description 05/27/2021 Telephone [facility] at [address] [address] Ronald Mills MD [address] [place] [phone] Social History Tobacco Use Types Packs/Day [...] Office Visit [facility] at [address] - [address] [facility] [place] [address] Ronald Mills MD [address] [facility] [address] [place] [address] documented as of this encounter Visit Diagnoses Not on filedocumented in this encounter Additional Health Concerns Infection Onset Date Last Indicated Resolved Time COVID-19 03/05/2022 03/05/2022 03/15/2022 7:18 PM EDT Assessment Noted Time PHQ-9 Depression Total Score: 2 11/07/19 19 2:06 PM EDT documented as of this encounter Care Teams Cinder Worker Relationship Specialty Start Date End Date Caitlyn Bowie MD [address] [address] PCP - General Internal Medicine 05/06/21 documented as of this encounter
--- OUTSIDE RECORDS SUMMARY | 2024-10-30 11:11 | XMS_ITS | Clinical Summary ---
Author Organization [facility] Address [address] [place] [address] Care Team Providers Care Carbide Tool Die Maker Name Role Phone Caitlyn Bowie MD Primary Care Provider +1- [phone] Allergies Active Allergy Reactions Criticality Noted Date [...] Breath High 05/09/2008 Bronchospasm or Wheezing Ipratropium [place] Unknown/Patient and Family Unable to Define Medium [...] 1 capsule by mouth daily. Active B Depptma-K-Usbob Acid (STRESS 500 B-COMPLEX PO) Take 1 [...] & B MEDICARE PART A & [facility] Care Teams Carbide Tool Die Maker Relationship Specialty Start Date End Date Caitlyn Bowie MD 3400 [place] [address] PCP - General Internal Medicine 03/20/23
--- OUTSIDE RECORDS SUMMARY | 2024-10-30 11:11 | XMS_ITS | Encounter Summary ---
Author Organization [facility] and [facility] Address [address] [place] [address] Care Team Providers Care Paving Machine Operator Name Role Phone Caitlyn Bowie MD Primary Care Provider +1- [phone] Encounter Details Date Type Department Care Team (Late st Contact Info) Description 08/07/2018 Scanned Document [facility] Health Information Management [address] [place] [address] External, Provider Social History Tobacco Use Types [...] Office Visit [facility] at [address] - [address] [place] [address] Ronald Mills MD [address] [place] [phone] documented as of this encounter Visit Diagnoses Not on filedocumented in this encounter Additional Health Concerns Infection Onset Date Last Indicated Resolved Time COVID-19 03/05/2022 03/05/2022 03/15/2022 7:18 PM EDT documented as of this encounter Care Teams Paving Machine Operator Relationship Specialty Start Date End Date Caitlyn Bowie MD 3400 [facility] 1 [place] [address] PCP - General Internal Medicine 05/06/21 Henry Kelly MD Pulmonary Department [address] [place] [address], [address] [place] [address] Physician Pulmonary Disease 09/06/17 06/22/20 documented as of this encounter
--- OUTSIDE RECORDS SUMMARY | 2024-10-30 11:11 | XMS_ITS | Encounter Summary ---
Author Organization [facility] and [facility] Address [address] [place] [address] Care Team Providers Care Supervisor Securities Vault Name Role Phone Caitlyn Bowie MD Primary Care Provider +1- [phone] Encounter Details Date Type Department Care Team (Late st Contact Info) Description 09/23/2021 Scanned Document INTERFACE DEFAULT [address] [place] [address] System, Provider Not In Social History Tobacco [...] Office Visit [facility] at [address] - [address] [place] [address] Ronald Mills MD [address] [place] [phone] documented as of this encounter Procedures [...] as of this encounter Care Teams Supervisor Securities Vault Relationship Specialty Start Date End Date Caitlyn Bowie MD [address] [address] PCP - General Internal Medicine 05/06/21 documented as of this encounter
--- OUTSIDE RECORDS SUMMARY | 2024-10-30 11:11 | XMS_ITS | Encounter Summary ---
Author Organization [facility] and [facility] Address [address] [place] [address] Care Team Providers Care Station Manager Name Role Phone Caitlyn Bowie MD Primary Care Provider +1- [phone] Encounter Details Date Type Department Care Team (Late st Contact Info) Description 11/18/2021 Scanned Document INTERFACE DEFAULT [address] [place] [address] System, Provider Not In Social History Tobacco [...] Office Visit [facility] at [address] [place] [address] Ronald Mills MD [address] [place] [phone] documented as of this encounter Visit Diagnoses Not on filedocumented in this encounter Additional Health Concerns Infection Onset Date Last Indicated Resolved Time COVID-19 03/05/2022 03/05/2022 03/15/2022 7:18 PM EDT Assessment Noted Time PHQ-9 Depression Total Score: 2 11/07/19 19 2:06 PM EDT documented as of this encounter Care Teams Station Manager Relationship Specialty Start Date End Date Caitlyn Bowie MD [address] [address] PCP - General Internal Medicine 05/06/21 documented as of this encounter
--- OUTSIDE RECORDS SUMMARY | 2024-10-30 11:11 | XMS_ITS | Encounter Summary ---
Author Organization [facility] and [facility] Address [address] [place] [address] Care Team Providers Care Gambling Cashier Name Role Phone Caitlyn Bowie MD Primary Care Provider +1- [phone] Encounter Details Date Type Department Care Team (Late st Contact Info) Description 06/26/2018 Scanned Document [facility] Health Information Management [address] [place] [address] External, Provider Social History Tobacco Use Types [...] Office Visit [facility] at [address] - [address] [place] [address] Ronald Mills MD [address] [place] [phone] documented as of this encounter Visit Diagnoses Not on filedocumented in this encounter Additional Health Concerns Infection Onset Date Last Indicated Resolved Time COVID-19 03/05/2022 03/05/2022 03/15/2022 7:18 PM EDT documented as of this encounter Care Teams Gambling Cashier Relationship Specialty Start Date End Date Caitlyn Bowie MD 3400 [facility] 1 [place] [address] PCP - General Internal Medicine 05/06/21 Henry Kelly MD Pulmonary Department [address] [place] [address], [address] [place] [address] Physician Pulmonary Disease 09/06/17 06/22/20 documented as of this encounter
--- OUTSIDE RECORDS SUMMARY | 2024-10-30 11:11 | XMS_ITS | Encounter Summary ---
Author Organization [facility] and [facility] Address [address] [place] [address] Care Team Providers Care Rn Social Services Name Role Phone Caitlyn Bowie MD Primary Care Provider +1- [phone] Reason for Visit * Reason Comments Triage Encounter Details Date Type Department Care Team (Late st Contact Info) Description 10/18/2021 Telephone [facility] at [address] - [address] [phone] Ronald Mills MD [address] [place] [phone] Triage Social History Tobacco Use Types [...] Office Visit [facility] at [address] - [address] [place] [address] Ronald Mills MD [address] [phone] documented as of this encounter Visit Diagnoses Not on filedocumented in this encounter Additional Health Concerns Infection Onset Date Last Indicated Resolved Time COVID-19 03/05/2022 03/05/2022 03/15/2022 7:18 PM EDT Assessment Noted Time PHQ-9 Depression Total Score: 2 11/07/19 19 2:06 PM EDT documented as of this encounter Care Teams Rn Social Services Relationship Specialty Start Date End Date Caitlyn Bowie MD [address] [address] PCP - General Internal Medicine 05/06/21 documented as of this encounter
--- OUTSIDE RECORDS SUMMARY | 2024-10-30 11:11 | XMS_ITS | Encounter Summary ---
Author Organization [facility] and [facility] Address [address] [place] [address] Care Team Providers Care Arts Administrator Or Manager Name Role Phone Caitlyn Bowie MD Primary Care Provider +1- [phone] Encounter Details Date Type Department Care Team (Late Contact Info) Description 06/07/2021 Scanned Document [facility] at [address] [address] External, Provider Social History Tobacco Use Types [...] EDT Office Visit Hematology Program at [address] - [address] [place], [place] [address] Ronald Mills MD [address] [place] [phone] documented as of this encounter Visit Diagnoses Not on filedocumented in this encounter Additional Health Concerns Infection Onset Date Last Indicated Resolved Time COVID-19 03/05/2022 03/05/2022 03/15/2022 7:18 PM EDT Assessment Noted Time PHQ-9 Depression Total Score: 2 11/07/19 19 2:06 PM EDT documented as of this encounter Care Teams Arts Administrator Or Manager Relationship Specialty Start Date End Date Caitlyn Bowie MD [address] [address] PCP - General Internal Medicine 05/06/21 documented as of this encounter
--- OUTSIDE RECORDS SUMMARY | 2024-10-30 11:11 | XMS_ITS | Encounter Summary ---
Author Organization [facility] and [facility] Address [address] [place] [address] Care Team Providers Care Spindle Carver Name Role Phone Caitlyn Bowie MD Primary Care Provider +1- [phone] Encounter Details Date Type Department Care Team (Late st Contact Info) Description 04/25/2021 Scanned Document INTERFACE DEFAULT [address] [place] [address] System, Provider Not In Social History Tobacco [...] Office Visit [facility] at [address] - [address] [place] [address] Ronald Mills MD [address] [place] [phone] documented as of this encounter Procedures [...] documented as of this encounter Care Teams Spindle Carver Relationship Specialty Start Date End Date Caitlyn Bowie MD [address] [address] PCP - General Internal Medicine 05/06/21 documented as of this encounter
--- OUTSIDE RECORDS SUMMARY | 2024-10-30 11:11 | XMS_ITS | Encounter Summary ---
Author Organization [facility] and [facility] Address [address] [place] [address] Care Team Providers Care Telesales Consultant Name Role Phone Caitlyn Bowie MD Primary Care Provider +1- [phone] Encounter Details Date Type Department Care Team (Late st Contact Info) Description 09/24/2021 Scanned Document INTERFACE DEFAULT [address] [place] [address] System, Provider Not In Social History Tobacco [...] Office Visit [facility] at [address] - [address] [place] [address] Ronald Mills MD [address] [place] [phone] documented as of this encounter Procedures [...] as of this encounter Care Teams Telesales Consultant Relationship Specialty Start Date End Date Caitlyn Bowie MD [address] [address] PCP - General Internal Medicine 05/06/21 documented as of this encounter
--- OUTSIDE RECORDS SUMMARY | 2024-10-30 11:11 | XMS_ITS | Encounter Summary ---
Author Organization [facility] and [facility] Address [address] [place] [address] Care Team Providers Care Industrial Plant Custodian Name Role Phone Caitlyn Bowie MD Primary Care Provider +1- [phone] Encounter Details Date Type Department Care Team (Late st Contact Info) Description 10/08/2021 Scanned Document INTERFACE DEFAULT [address] [place] [address] System, Provider Not In Social History Tobacco [...] Office Visit [facility] at [address] - [address] [place] [address] Ronald Mills MD [address] [place] [phone] documented as of this encounter Procedures [...] as of this encounter Care Teams Industrial Plant Custodian Relationship Specialty Start Date End Date Caitlyn Bowie MD [address] [address] PCP - General Internal Medicine 05/06/21 documented as of this encounter
--- OUTSIDE RECORDS SUMMARY | 2024-10-30 11:12 | XMS_ITS | Encounter Summary ---
Author Organization [facility] and [facility] Address [address] [place] [address] Care Team Providers Care Auto Machinist Name Role Phone Caitlyn Bowie MD Primary Care Provider +1- [phone] Encounter Details Date Type Department Care Team (Late st Contact Info) Description 07/07/2021 Scanned Document INTERFACE DEFAULT [address] [place] [address] System, Provider Not In Social History Tobacco [...] Office Visit [facility] at [address] - [address] [place] [address] Ronald Mills MD [address] [place] [phone] documented as of this encounter Visit Diagnoses Not on filedocumented in this encounter Additional Health Concerns Infection Onset Date Last Indicated Resolved Time COVID-19 03/05/2022 03/05/2022 03/15/2022 7:18 PM EDT Assessment Noted Time PHQ-9 Depression Total Score: 2 11/07/19 19 2:06 PM EDT documented as of this encounter Care Teams Auto Machinist Relationship Specialty Start Date End Date Caitlyn Bowie MD [address] [address] PCP - General Internal Medicine 05/06/21 documented as of this encounter
--- OUTSIDE RECORDS SUMMARY | 2024-10-30 11:12 | XMS_ITS | Encounter Summary ---
Author Organization [facility] and [facility] Address [address] [place] [address] Care Team Providers Care Horse Trekking Guide Name Role Phone Caitlyn Bowie MD Primary Care Provider +1- [phone] Encounter Details Date Type Department Care Team (Late st Contact Info) Description 04/13/2023 Scanned Document INTERFACE DEFAULT [address] [place] [address] System, Provider Not In Social History Tobacco [...] Office Visit [facility] at [address] - [address] [place] [address] Ronald Mills MD [address] [place] [phone] documented as of this encounter Procedures [...] as of this encounter Care Teams Horse Trekking Guide Relationship Specialty Start Date End Date Caitlyn Bowie MD [address] [address] PCP - General Internal Medicine 05/06/21 documented as of this encounter
--- OUTSIDE RECORDS SUMMARY | 2024-10-30 11:12 | XMS_ITS | Encounter Summary ---
Author Organization [facility] and [facility] Address [address] [place] [address] Care Team Providers Care Immigration Patrol Inspector Name Role Phone Caitlyn Bowie MD Primary Care Provider +1- [phone] Encounter Details Date Type Department Care Team (Late st Contact Info) Description 06/24/2022 Scanned Document INTERFACE DEFAULT [address] [place] [address] System, Provider Not In Social History Tobacco [...] Office Visit [facility] at [address] - [address] [place] [address] Ronald Mills MD [address] [place] [phone] documented as of this encounter Procedures [...] as of this encounter Care Teams Immigration Patrol Inspector Relationship Specialty Start Date End Date Caitlyn Bowie MD [address] [address] PCP - General Internal Medicine 05/06/21 documented as of this encounter
--- OUTSIDE RECORDS SUMMARY | 2024-10-30 11:12 | XMS_ITS | Encounter Summary ---
Author Organization [facility] and [facility] Address [address] [place] [address] Care Team Providers Care Windows And Doors Installer Name Role Phone Caitlyn Bowie MD Primary Care Provider +1- [phone] Encounter Details Date Type Department Care Team (Late st Contact Info) Description 05/10/2022 Scanned Document Cardiovascular Medicine at [address] [place] [phone] Norma Renee MD [address] [place] [phone] Social History Tobacco Use Types Packs/Day [...] EDT Office Visit Hematology Program at [address] - [address] [phone] Ronald Mills MD [address] [place] [phone] documented as of this encounter Visit Diagnoses Not on filedocumented in this encounter Additional Health Concerns Assessment Noted Time PHQ-9 Depression Total Score: 2 11/07/19 19 2:06 PM EDT documented as of this encounter Care Teams Windows And Doors Installer Relationship Specialty Start Date End Date Caitlyn Bowie MD [address] [address] PCP - General Internal Medicine 05/06/21 documented as of this encounter
--- OUTSIDE RECORDS SUMMARY | 2024-10-30 11:12 | XMS_ITS | Encounter Summary ---
Author Organization [facility] and [facility] Address [address] [place] [address] Care Team Providers Care Mail Machine Operator Name Role Phone Caitlyn Bowie MD Primary Care Provider +1- [phone] Encounter Details Date Type Department Care Team (Late st Contact Info) Description 05/02/2022 Scanned Document INTERFACE DEFAULT [address] [place] [address] System, Provider Not In Social History Tobacco [...] EDT Office Visit [facility] at [address] - [address] [place] [address] Ronald Mills MD [address] [place] [phone] documented as of this encounter Procedures [...] as of this encounter Care Teams Mail Machine Operator Relationship Specialty Start Date End Date Caitlyn Bowie MD [address] [address] PCP - General Internal Medicine 05/06/21 documented as of this encounter
--- OUTSIDE RECORDS SUMMARY | 2024-10-30 11:12 | XMS_ITS | Encounter Summary ---
Author Organization [facility] Address [address] [place] [address] Care Team Providers Care Towel Inspector Name Role Phone Caitlyn Bowie MD Primary Care Provider +1- [phone] Encounter Details Date Type Department Care Team (Late st Contact Info) Description 10/24/2022 Scanned Document INTERFACE DEFAULT [address] [place] [address] System, Provider Not In Social History Tobacco [...] Office Visit [facility] at [address] - [address] [place] [address] Ronald Mills MD [address] [place] [phone] documented as of this encounter Procedures [...] documented as of this encounter Care Teams Towel Inspector Relationship Specialty Start Date End Date Caitlyn Bowie MD [address] [address] PCP - General Internal Medicine 05/06/21 documented as of this encounter
--- OUTSIDE RECORDS SUMMARY | 2024-10-30 11:12 | XMS_ITS | Encounter Summary ---
Author Organization [facility] Address [address] [place] [address] Care Team Providers Care Perpetual Inventory Clerk Name Role Phone Caitlyn Bowie MD Primary Care Provider +1- [phone] Encounter Details Date Type Department Care Team (Late st Contact Info) Description 01/02/2024 Scanned Document INTERFACE DEFAULT [address] [place] [address] System, Provider Not In Social History Tobacco [...] Office Visit [facility] at [address] - [address] [place] [address] Ronald Mills MD [address] [place] [phone] documented as of this encounter Procedures [...] documented as of this encounter Care Teams Perpetual Inventory Clerk Relationship Specialty Start Date End Date Caitlyn Bowie MD [address] [address] PCP - General Internal Medicine 05/06/21 documented as of this encounter
--- OUTSIDE RECORDS SUMMARY | 2024-10-30 11:12 | XMS_ITS | Encounter Summary ---
Author Organization [facility] Address [address] [place] [address] Care Team Providers Care Document Imaging Manager Name Role Phone Caitlyn Bowie MD Primary Care Provider +1- [phone] Encounter Details Date Type Department Care Team (Late st Contact Info) Description 04/28/2022 Scanned Document INTERFACE DEFAULT [address] [place] [address] System, Provider Not In Social History Tobacco [...] [facility] Visit [facility] [address] [place] [address] Ronald Mills MD [address] [place] [phone] documented as of this encounter Procedures [...] of this encounter Care Teams Document Imaging Manager Relationship Specialty Start Date End Date Caitlyn Bowie MD [facility] [address] [address] PCP - General Internal Medicine 05/06/21 documented as of this encounter
--- OUTSIDE RECORDS SUMMARY | 2024-10-30 11:12 | XMS_ITS | Encounter Summary ---
Author Organization [facility] and [facility] Address [address] [place] [address] Care Team Providers Care Cellular Biologist Name Role Phone Caitlyn Bowie MD Primary Care Provider +1- [phone] Encounter Details Date Type Department Care Team (Late st Contact Info) Description 06/23/2022 Scanned Document INTERFACE DEFAULT [address] [place] [address] System, Provider Not In Social History Tobacco [...] [facility] Visit [facility] at [address] - [address] [place] [address] Ronald Mills MD [address] [place] [phone] documented as of this encounter Visit Diagnoses Not on filedocumented in this encounter Additional Health Concerns Assessment Noted Time PHQ-9 Depression Total Score: 2 11/07/19 19 2:06 PM EDT documented as of this encounter Care Teams Cellular Biologist Relationship Specialty Start Date End Date Caitlyn Bowie MD [address] [address] PCP - General Internal Medicine 05/06/21 documented as of this encounter
--- OUTSIDE RECORDS SUMMARY | 2024-10-30 11:12 | XMS_ITS ---
Author Organization [facility] Address [address] [facility] [address] [place] [address] Care Team Providers Care Stock Preparer Name Role Phone EVELIN RAMSAY Primary Care Provider Yenny Hou Unavailable [phone] Allergies Allergen (clinical drug ingredient) Drug/Non Drug [...] 1/2 tab prn during the day [facility] 06/10/2014 Active Advair HFA 230-21MCG/ACT 2 Inhalation tw ice daily for -3 06/10/2014 Active EpiPen Active Meclizine HCl 25 MG 1 tablet as needed Orally [facility] 06/10/2014 Active Rosuvastatin Calcium 05/03/2024 Active predniSONE 2.5 MG Oral for 30 Active Singulair 10 MG 1 tablet Orally Once a day Active Metoprolol Succinate ER 50 MG 1 tablet Orally Once a day Active Synthroid 25MCG 1 ORAL daily for - [facility] 06/10/2014 Active Albuterol Sulfate (2.5 MG/3ML)0.083% Inhalation [...] Encounters Encounter Location Date Provider Diagnosis Total [address] [place] [address] 07/09/2024 Yenny Lovettva Urgency of urination R39.15 [...] Notes * TONIE WATSONOB:1945 (79 yo F)Acc No.[id number]:07/09/2024 PROGRESS NOTES Patient:?SHIRLEY CINDA Appointment Provider:?Yenny doan M.D. :1945???Age:79 Y???Sex:Female D ate:07/09/2024 Address:[address] [place] [address], [facility] Pcp:EVELIN RAMSAY Subjective: * Chief Complaints: * [...] ODORED DISCHARGE.?no?skin complaints.? * Medical History:? * Office Receptionist History:?/ Para?2/2.?Sexual activity?not currently sexually active.?Last Pap [...] mm Hg, Temp: 98.0 F. * Examination: ???LEATHER [employer] ARTISAN exam: ?EXTERNAL GENITALIA:?Normal female. No lesions, erythema [...] Elizalde M.D. Date:?07/09/2024 Generated for Arely paige/Sebastian/Zacheryitting on:?10/30/2024 11:11 AM EDT History and Physical Notes * HPI [...] Category Sub-Category Detail Notes Category Not es LEATH[employer] ARTISAN exam CERVIX: surgically absent VAGINA: atrophic changes, er ythematous with yellow white discharge, pH>4.5, +whiff test EXTERNAL GENITALIA: Normal female. No le sions, erythema or discharge UTERUS: absent ADNEXA: surgically absent
--- OUTSIDE RECORDS SUMMARY | 2024-10-30 11:12 | XMS_ITS | Encounter Summary ---
Author Organization [facility] Address [address] [place] [address] Phone Care Team Providers Care Tutorial Laboratory Supervisor Name Role Phone Caitlyn Bowie MD Primary Care Provider +1- [phone] Encounter Details Date Type Department Care Team (Late st Contact Info) Description 10/10/2024 Documentation Only [facility] [address] [place] [address] [place]ra [place]inth[place], [place] [address] [place] [address] Social History Tobacco Use Types [...] Visit [facility] [address] [place] [address] Rubén Ashraf MD [address] [place] [address] [place] [address] documented as of this encounter Visit Diagnoses Not on filedocumented in this encounter Care Teams Tutorial Laboratory Supervisor Relationship Specialty Start Date End Date Caitlyn Bowie MD [address] [place], [place] PCP - General Internal Medicine 09/24/24 documented as of this encounter
--- OUTSIDE RECORDS SUMMARY | 2024-10-30 11:12 | XMS_ITS | Encounter Summary ---
Author Organization [facility] and [facility] Address [address] [place] [address] Care Team Providers Care Driver Trainee Name Role Phone Caitlyn Bowie MD Primary Care Provider +1- [phone] Encounter Details Date Type Department Care Team (Late st Contact Info) Description 08/23/2022 Abstract Cardiovascular Medicine at [address] [address] Norma Renee MD [address] [place] [address] Social History Tobacco Use Types Packs/Day [...] EDT Office Visit Hematology Program at [address] [address] Ronald Mills MD [address] [place] [phone] documented as of this encounter Visit Diagnoses Not on filedocumented in this encounter Additional Health Concerns Assessment Noted Time PHQ-9 Depression Total Score: 2 11/07/19 19 2:06 PM EDT documented as of this encounter Care Teams Driver Trainee Relationship Specialty Start Date End Date Caitlyn Bowie MD [address] [address] PCP - General Internal Medicine 05/06/21 documented as of this encounter
--- OUTSIDE RECORDS SUMMARY | 2024-10-30 11:12 | XMS_ITS | Encounter Summary ---
Author Organization [facility] Address [address] [place] [address] Care Team Providers Care Beer Runner Name Role Phone Pcp, No Primary Care Provider Brennan Mario MD Primary Care Provider [phone] Caitlyn Bowie MD Primary Care Provider +1- [phone] Encounter Details Date Type Department Care Team (Late st Contact Info) Description 01/04/2022 Scanned Document [facility] Neurology Ophthalmology [address] [address] Yary Whitten DO [address] [place] [address] Social History Tobacco Use Types Packs/Day [...] on filedocumented in this encounter Care Teams Beer Runner Relationship Specialty Start Date End Date Pcp, No PCP - General General Medicine 10/04/21 07/18/22 Brennan Burnett MD [address] [place] [address] PCP - General 07/19/22 03/19/23 Caitlyn Bowie MD [address] [place] [address] PCP - General Internal Medicine 03/20/23 documented as of this encounter
--- OUTSIDE RECORDS SUMMARY | 2024-10-30 11:12 | XMS_ITS | Encounter Summary ---
Author Organization [facility] and [facility] Address [address] [place] [address] Care Team Providers Care Housing Development Specialist Name Role Phone Caitlyn Bowie MD Primary Care Provider +1- [phone] Encounter Details Date Type Department Care Team (Late st Contact Info) Description 06/08/2022 Scanned Document INTERFACE DEFAULT [address] [place] [address] System, Provider Not In Social History Tobacco [...] [facility] Visit [facility] [address] [place] [address] Ronald Mills MD [address] [place] [phone] documented as of this encounter Procedures [...] as of this encounter Care Teams Housing Development Specialist Relationship Specialty Start Date End Date Caitlyn Bowie MD [address] [address] PCP - General Internal Medicine 05/06/21 documented as of this encounter
--- OUTSIDE RECORDS SUMMARY | 2024-10-30 11:12 | XMS_ITS | Encounter Summary ---
Author Organization [facility] and [facility] Address [address] [place] [address] Care Team Providers Care Linux Engineer Name Role Phone Caitlyn Bowie MD Primary Care Provider +1- [phone] Encounter Details Date Type Department Care Team (Late st Contact Info) Description 05/04/2022 Scanned Document INTERFACE DEFAULT [address] [place] [address] System, Provider Not In Social History Tobacco [...] Office Visit [facility] at [address] - [address] [place] [address] Ronald Mills MD [address] [place] [phone] documented as of this encounter Visit Diagnoses Not on filedocumented in this encounter Additional Health Concerns Assessment Noted Time PHQ-9 Depression Total Score: 2 11/07/19 19 2:06 PM EDT documented as of this encounter Care Teams Linux Engineer Relationship Specialty Start Date End Date Caitlyn Bowie MD [address] [address] PCP - General Internal Medicine 05/06/21 documented as of this encounter
--- OUTSIDE RECORDS SUMMARY | 2024-10-30 11:12 | XMS_ITS | Encounter Summary ---
Author Organization [facility] Address [address] [place] [address] Phone Care Team Providers Care Digester Operator Helper Name Role Phone Caitlyn Bowie MD Primary Care Provider +1- [phone] Encounter Details Date Type Department Care Team (Late st Contact Info) Description 08/30/2024 Abstract [facility] [address] [place] [address] [address] [place] [address] Adalgisa Whitney MD [address] [place] [address] 202 [place] [address] Social History Tobacco Use Types [...] Office Visit [facility] at [address] [address] Ronald Mills MD [address] [place] [phone] documented as of this encounter Visit Diagnoses Not on filedocumented in this encounter Additional Health Concerns Assessment Noted Time PHQ-9 Depression Total Score: 2 11/07/19 19 2:06 PM EDT documented as of this encounter Care Teams Digester Operator Helper Relationship Specialty Start Date End Date Caitlyn Bowie MD [address] [address] PCP - General Internal Medicine 05/06/21 documented as of this encounter
--- OUTSIDE RECORDS SUMMARY | 2024-10-30 11:12 | XMS_ITS | Encounter Summary ---
Author Organization [facility] Address [address] [place] [address] Care Team Providers Care Cutter Plastics Rolls Name Role Phone Caitlyn Bowie MD Primary Care Provider +1- [phone] Encounter Details Date Type Department Care Team (Late st Contact Info) Description 09/09/2015 Scanned Document [facility] Health Information Management [address] [place] [address] External, Provider Social History Tobacco Use Types [...] Office Visit [facility] at [address] [place] [address] Ronald Mills MD [address] [place] [phone] documented as of this encounter Procedures Procedure Name Priority Date/Time Associated Diagnosis Comments LAB SCAN Routine 09/09/2015 documented in this encounter Results * Lab Scan (09/09/2015) Blood specimen (specimen) us Provider External LAB BLOOD ORDERABLES Final Res ult Performing Organization Address City/State/[facility] Co de Phone Number [facility] [place], [place], [facility] documented in this encounter Visit Diagnoses Not on filedocumented in this encounter Additional Health Concerns Infection Onset Date Last Indicated Resolved Time COVID-19 03/05/2022 03/05/2022 03/15/2022 7:18 PM EDT documented as of this encounter Care Teams Cutter Plastics Rolls Relationship Specialty Start Date End Date Caitlyn Bowie MD [address] [facility] [place] 1 [place] [address] PCP - General Internal Medicine 05/06/21 Henry Kelly MD Pulmonary Department [address] [facility] [place] [address] Physician Pulmonary Disease 09/06/17 06/22/20 documented as of this encounter
--- OUTSIDE RECORDS SUMMARY | 2024-10-30 11:12 | XMS_ITS | Encounter Summary ---
Author Organization [facility] Address [address] [place] [address] Care Team Providers Care Forklift Mechanic Name Role Phone Caitlyn Bowie MD Primary Care Provider +1- [phone] Encounter Details Date Type Department Care Team (Late Contact Info) Description 01/31/2023 Abstract [facility] Melanoma [facility] [address] [facility] [place] [address] Shilpi Romero, RN Social History Tobacco Use [...] Office Visit [facility] at [address] - [address] [address] Ronald Mills MD [address] [place] [phone] documented as of this encounter Visit Diagnoses Not on filedocumented in this encounter Additional Health Concerns Assessment Noted Time PHQ-9 Depression Total Score: 2 11/07/19 19 2:06 PM EDT documented as of this encounter Care Teams Forklift Mechanic Relationship Specialty Start Date End Date Caitlyn Bowie MD [address] [address] PCP - General Internal Medicine 05/06/21 documented as of this encounter
--- OUTSIDE RECORDS SUMMARY | 2024-10-30 11:12 | XMS_ITS | Encounter Summary ---
Author Organization [facility] and [facility] Address [address] [place] [address] Care Team Providers Care Passenger Interline Clerk Name Role Phone Caitlyn Bowie MD Primary Care Provider +1- [phone] Encounter Details Date Type Department Care Team (Late st Contact Info) Description 06/28/2022 Scanned Document INTERFACE DEFAULT [address] [place] [address] System, Provider Not In Social History Tobacco [...] Office Visit [facility] at [address] - [address] [place] [address] Ronald Mills MD [address] [place] [phone] documented as of this encounter Procedures [...] documented as of this encounter Care Teams Passenger Interline Clerk Relationship Specialty Start Date End Date Caitlyn Bowie MD [address] [address] PCP - General Internal Medicine 05/06/21 documented as of this encounter
--- OUTSIDE RECORDS SUMMARY | 2024-10-30 11:12 | XMS_ITS | Encounter Summary ---
Author Organization [facility] Address [address] [place] [address] Care Team Providers Care Financial Center Manager Name Role Phone Caitlyn Bowie MD Primary Care Provider +1- [phone] Encounter Details Date Type Department Care Team (Late st Contact Info) Description 06/20/2022 Scanned Document INTERFACE DEFAULT [address] [place] [address] System, Provider Not In Social History Tobacco [...] Office Visit [facility] at [address] - [address] [place] [address] Ronald Mills MD [address] [place] [phone] documented as of this encounter Procedures [...] as of this encounter Care Teams Financial Center Manager Relationship Specialty Start Date End Date Caitlyn Bowie MD [address] [address] PCP - General Internal Medicine 05/06/21 documented as of this encounter
--- OUTSIDE RECORDS SUMMARY | 2024-10-30 11:12 | XMS_ITS | Encounter Summary ---
Author Organization [facility] Address [address] [place] [address] Care Team Providers Care Print Production Coordinator Name Role Phone Caitlyn Bowie MD Primary Care Provider +1- [phone] Encounter Details Date Type Department Care Team (Late st Contact Info) Description 04/20/2023 Scanned Document INTERFACE DEFAULT [address] [place] [address] System, Provider Not In Social History Tobacco [...] Office Visit [facility] at [address] - [address] [place] [address] Ronald Mills MD [address] [place] [phone] documented as of this encounter Procedures [...] as of this encounter Care Teams Print Production Coordinator Relationship Specialty Start Date End Date Caitlyn Bowie MD [address] [address] PCP - General Internal Medicine 05/06/21 documented as of this encounter
--- OUTSIDE RECORDS SUMMARY | 2024-10-30 11:12 | XMS_ITS | Encounter Summary ---
Author Organization [facility] Address [address] [place] [address] Care Team Providers Care Risk Investigator Name Role Phone Caitlyn Bowie MD Primary Care Provider +1- [phone] Encounter Details Date Type Department Care Team (Late st Contact Info) Description 09/01/2023 Scanned Document INTERFACE DEFAULT [address] [place] [address] System, Provider Not In Social History Tobacco [...] Office Visit [facility] at [address] - [address] [place] [address] Ronald Mills MD [address] [place] [phone] documented as of this encounter Visit Diagnoses Not on filedocumented in this encounter Additional Health Concerns Assessment Noted Time PHQ-9 Depression Total Score: 2 11/07/19 19 2:06 PM EDT documented as of this encounter Care Teams Risk Investigator Relationship Specialty Start Date End Date Caitlyn Bowie MD [address] [address] PCP - General Internal Medicine 05/06/21 documented as of this encounter
--- OUTSIDE RECORDS SUMMARY | 2024-10-30 11:12 | XMS_ITS | Encounter Summary ---
Author Organization [facility] Address [address] [place] [address] Care Team Providers Care Wood Type Finisher Name Role Phone Caitlyn Bowie MD Primary Care Provider +1- [phone] Encounter Details Date Type Department Care Team (Late st Contact Info) Description 04/19/2023 Scanned Document INTERFACE DEFAULT [address] [place] [address] System, Provider Not In Social History Tobacco [...] Office Visit [facility] at [address] - [address] [place] [address] Ronald Mills MD [address] [place] [phone] documented as of this encounter Procedures [...] as of this encounter Care Teams Wood Type Finisher Relationship Specialty Start Date End Date Caitlyn Bowie MD [address] [address] PCP - General Internal Medicine 05/06/21 documented as of this encounter
--- OUTSIDE RECORDS SUMMARY | 2024-10-30 11:12 | XMS_ITS | Encounter Summary ---
Author Organization [facility] Address [address] [place] [address] Care Team Providers Care Reefer Truck Driver Name Role Phone Caitlny Bowie MD Primary Care Provider +1- [phone] Encounter Details Date Type Department Care Team (Late st Contact Info) Description 12/04/2018 Scanned Document [facility] Health Information Management [address] [place] [address] External, Provider Social History Tobacco Use Types [...] Office Visit [facility] at [address] - [address] [place] [address] Ronald Mills MD [address] [place] [phone] documented as of this encounter Visit Diagnoses Not on filedocumented in this encounter Additional Health Concerns Infection Onset Date Last Indicated Resolved Time COVID-19 03/05/2022 03/05/2022 03/15/2022 7:18 PM EDT Assessment Noted Time PHQ-9 Depression Total Score: 2 11/07/19 19 2:06 PM EDT documented as of this encounter Care Teams Reefer Truck Driver Relationship Specialty Start Date End Date Caitlyn Bowie MD 34[address] [facility] [address] [place] [address] PCP - General Internal Medicine 05/06/21 Henry Kelly MD Pulmonary Department [address] [facility] [place] [address] Physician Pulmonary Disease 09/06/17 06/22/20 documented as of this encounter
--- OUTSIDE RECORDS SUMMARY | 2024-10-30 11:12 | XMS_ITS | Encounter Summary ---
Author Organization [facility] Address [address] [place] [address] Care Team Providers Care Digital Publishing Specialist Name Role Phone Caitlyn Bowie MD Primary Care Provider +1- [phone] Encounter Details Date Type Department Care Team (Late st Contact Info) Description 09/24/2015 Scanned Document [facility] [address] [place] [address] [address] Kevin Espinoza MD [address] [place] [address] Social History Tobacco Use Types Packs/Day [...] Office Visit [facility] at [address] - [address] [place] [address] Ronald Mills MD [address] [place] [phone] documented as of this encounter Visit Diagnoses Not on filedocumented in this encounter Additional Health Concerns Infection Onset Date Last Indicated Resolved Time COVID-19 03/05/2022 03/05/2022 03/15/2022 7:18 PM EDT documented as of this encounter Care Teams Digital Publishing Specialist Relationship Specialty Start Date End Date Caitlyn Bowie MD 3400 [facility] [address] [place] [address] PCP - General Internal Medicine 05/06/21 Henry Kelly MD Pulmonary Department [address] [facility] [place] [address] Physician Pulmonary Disease 09/06/17 06/22/20 documented as of this encounter
--- OUTSIDE RECORDS SUMMARY | 2024-10-30 11:12 | XMS_ITS ---
Author Organization [facility] Address [address] [facility] [address] [place] [address] Care Team Providers Care Marine Electronics Technician Name Role Phone EVELIN RAMSAY Primary Care Provider Yenny Hou Unavailable [phone] Allergies Allergen (clinical drug ingredient) Drug/Non Drug [...] bedtime, 1/2 tab prn during the day [facility] 06/10/2014 Active traZODone HCl 50MG 1 ORAL at bedtime fo r -3 [facility] 06/10/2014 Active Meclizine HCl 25 MG 1 tablet as needed Orally [facility] 06/10/2014 Active Advair HFA 230-21MCG/ACT [...] Synthroid 25MCG 1 ORAL daily for -3 [facility] 06/10/2014 Active Singulair 10 MG [...] 25 Encounters Encounter Location Date Provider Diagnosis [address] [place] [address] 07/18/2024 Yenny Elizalde Encounter for screening mammogram [...] Notes * TONIE WATSONOB:1945 (79 yo F)Acc No.[id number]:07/18/2024 PROGRESS NOTES Patient:?CINDA WATSON Appointment Provider:?Yenny doan M.D. :1945???Age:79 Y???Sex:Female D ate:07/18/2024 Address:[address] [place] [address] Pcp:EVELIN RAMSAY Subjective: * Chief Complaints: * ???LT BREAST PAIN * HPI: ???New/Follow-up Patient Consult:? PAT C/O LEFT BREAST DISCOMFORT OF A FEW DAYS DURATION.? NO NIPPLE DISCHARGE, NO PALPABLE MASSES.? HER LAST MAMMOGRAM DONE IN AUG 2023 WAS NORMAL. * ROS:?general:?no?chest pain.?no?palpitations.?no?headache.?no?cough.?no?shortness of breath.?no?fever.?no?unexplained weight loss.?no?nausea/vomiting.?no?change in bowel movements.?no blood in stool.?no?genitourinary complaints.?no?skin complaints.? * Medical History:? * Telescope Repairer History:?/ Para?2/2.?Sexual activity?not currently sexually active.?Last Pap [...] Provider:?Yenny Elizalde M.D. Date:?07/18/2024 Generated for Arely paige/Sebastian/eTantoniasmitting on:?10/30/2024 11:12 AM EDT History and Physical Notes * [...]
--- OUTSIDE RECORDS SUMMARY | 2024-10-30 11:12 | XMS_ITS | Encounter Summary ---
Author Organization [facility] and [facility] Address [address] [place] [address] Care Team Providers Care Barbed Wire Machine Operator Name Role Phone Caitlyn Bowie MD Primary Care Provider +1- [phone] Encounter Details Date Type Department Care Team (Late st Contact Info) Description 05/16/2023 Scanned Document INTERFACE DEFAULT [address] [place] [address] System, Provider Not In Social History Tobacco [...] [facility] at [address] [place] [address] Ronald Mills MD [address] [place] [phone] documented as of this encounter Procedures [...] documented as of this encounter Care Teams Barbed Wire Machine Operator Relationship Specialty Start Date End Date Caitlyn Bowie MD [address] [address] PCP - General Internal Medicine 05/06/21 documented as of this encounter
--- OUTSIDE RECORDS SUMMARY | 2024-10-30 11:12 | XMS_ITS | Encounter Summary ---
Author Organization [facility] and [facility] Address [address] [place] [address] Care Team Providers Care Event Technician Name Role Phone Caitlyn Bowie MD Primary Care Provider +1- [phone] Encounter Details Date Type Department Care Team (Late st Contact Info) Description 05/17/2023 Scanned Document INTERFACE DEFAULT [address] [place] [address] System, Provider Not In Social History Tobacco [...] [facility] Visit [facility] at [address] - [address] [place] [address] Ronald Mills MD [address] [place] [phone] documented as of this encounter Procedures [...] Caitlyn Bowie MD [address] [address] PCP - General Internal Medicine 05/06/21 documented as of this encounter
--- OUTSIDE RECORDS SUMMARY | 2024-10-30 11:12 | XMS_ITS | Encounter Summary ---
Author Organization [facility] and [facility] Address [address] [place] [address] Care Team Providers Care Infection Control Nurse Name Role Phone Caitlyn Bowie MD Primary Care Provider +1- [phone] Encounter Details Date Type Department Care Team (Late st Contact Info) Description 09/28/2015 Scanned Document [facility] Health Information Management [address] [place] [address] External, Provider Social History Tobacco Use Types [...] Office Visit [facility] at [address] - [address] [place] [address] Ronald Mills MD [address] [place] [phone] documented as of this encounter Procedures Procedure Name Priority Date/Time Associated Diagnosis Comments LAB SCAN Routine 09/09/2015 documented in this encounter Results * Lab Scan (09/09/2015) Blood specimen (specimen) us Provider External LAB BLOOD ORDERABLES Final Res ult [facility] documented in this encounter Visit Diagnoses Not on filedocumented in this encounter Additional Health Concerns Infection Onset Date Last Indicated Resolved Time COVID-19 03/05/2022 03/05/2022 03/15/2022 7:18 PM EDT documented as of this encounter Care Teams Infection Control Nurse Relationship Specialty Start Date End Date Caitlyn Bowie MD 3400 [facility] 1 [place] [address] PCP - General Internal Medicine 05/06/21 Henry Kelly MD Pulmonary Department 175 [facility], [address] [place] [address] Physician Pulmonary Disease 09/06/17 06/22/20 documented as of this encounter
--- OUTSIDE RECORDS SUMMARY | 2024-10-30 11:12 | XMS_ITS | Encounter Summary ---
Author Organization [facility] and [facility] Address [address] [place] [address] Care Team Providers Care Cost Manager Name Role Phone Caitlyn Bowie MD Primary Care Provider +1- [phone] Encounter Details Date Type Department Care Team (Late st Contact Info) Description 06/27/2022 Scanned Document INTERFACE DEFAULT [address] [place] [address] System, Provider Not In Social History Tobacco [...] Office Visit [facility] at [address] - [address] [place] [address] Ronald Mills MD [address] [place] [phone] documented as of this encounter Procedures [...] as of this encounter Care Teams Cost Manager Relationship Specialty Start Date End Date Caitlyn Bowie MD [address] [address] PCP - General Internal Medicine 05/06/21 documented as of this encounter
--- OUTSIDE RECORDS SUMMARY | 2024-10-30 11:12 | XMS_ITS | Encounter Summary ---
Author Organization [facility] and [facility] Address [address] [place] [address] Care Team Providers Care Truck Driving Instructor Name Role Phone Caitlyn Bowie MD Primary Care Provider +1- [phone] Encounter Details Date Type Department Care Team (Late st Contact Info) Description 07/08/2022 Scanned Document Cardiovascular Medicine at [address] [place] [phone] Noram Renee MD [address] [place] [phone] Social History Tobacco Use Types Packs/Day [...] EDT Office Visit Hematology Program at [address] - [address] [address] Ronald Mills MD [address] [place] [phone] documented as of this encounter Visit Diagnoses Not on filedocumented in this encounter Additional Health Concerns Assessment Noted Time PHQ-9 Depression Total Score: 2 11/07/19 19 2:06 PM EDT documented as of this encounter Care Teams Truck Driving Instructor Relationship Specialty Start Date End Date Caitlyn Bowie MD [address] [address] PCP - General Internal Medicine 05/06/21 documented as of this encounter
--- OUTSIDE RECORDS SUMMARY | 2024-10-30 11:12 | XMS_ITS | Encounter Summary ---
Author Organization [facility] and [facility] Address [address] [place] [address] Care Team Providers Care Case Mgr Name Role Phone Caitlyn Bowie MD Primary Care Provider +1- [phone] Encounter Details Date Type Department Care Team (Late st Contact Info) Description 09/09/2015 Scanned Document [facility] Health Information Management [address] [place] [address] External, Provider Social History Tobacco Use Types [...] Office Visit [facility] at [address] [place] [address] Ronald Mills MD [address] [place] [phone] documented as of this encounter Procedures Procedure Name Priority Date/Time Associated Diagnosis Comments LAB SCAN Routine 09/09/2015 documented in this encounter Results * Lab Scan (09/09/2015) Blood specimen (specimen) us Provider External LAB BLOOD ORDERABLES Final Res ult [facility] documented in this encounter Visit Diagnoses Not on filedocumented in this encounter Additional Health Concerns Infection Onset Date Last Indicated Resolved Time COVID-19 03/05/2022 03/05/2022 03/15/2022 7:18 PM EDT documented as of this encounter Care Teams Case Mgr Relationship Specialty Start Date End Date Caitlyn Bowie MD 3400 [facility] 1 [place] [address] PCP - General Internal Medicine 05/06/21 Henry Kelly MD Pulmonary Department 175 [facility], [address] [place] [address] Physician Pulmonary Disease 09/06/17 06/22/20 documented as of this encounter
--- OUTSIDE RECORDS SUMMARY | 2024-10-30 11:12 | XMS_ITS | Encounter Summary ---
Author Organization [facility] and [facility] Address [address] [place] [address] Care Team Providers Care Gas Distribution Plant Operator Name Role Phone Caitlyn Bowie MD Primary Care Provider +1- [phone] Encounter Details Date Type Department Care Team (Late st Contact Info) Description 12/23/2022 Scanned Document INTERFACE DEFAULT [address] [place] [address] System, Provider Not In Social History Tobacco [...] Office Visit [facility] at [address] - [address] [place] [address] Ronald Mills MD [address] [place] [phone] documented as of this encounter Visit Diagnoses Not on filedocumented in this encounter Additional Health Concerns Assessment Noted Time PHQ-9 Depression Total Score: 2 11/07/19 19 2:06 PM EDT documented as of this encounter Care Teams Gas Distribution Plant Operator Relationship Specialty Start Date End Date Caitlyn Bowie MD [address] [address] PCP - General Internal Medicine 05/06/21 documented as of this encounter
--- OUTSIDE RECORDS SUMMARY | 2024-10-30 11:12 | XMS_ITS | Encounter Summary ---
Author Organization [facility] and [facility] Address [address] [place] [address] Care Team Providers Care Basket Turner Name Role Phone Caitlyn Bowie MD Primary Care Provider +1- [phone] Encounter Details Date Type Department Care Team (Late st Contact Info) Description 09/09/2015 Scanned Document [facility] Health Information Management [address] [place] [address] External, Provider Social History Tobacco Use Types [...] Office Visit [facility] at [address] - [address] [place] [address] Ronald Mills MD [address] [place] [phone] documented as of this encounter Procedures Procedure Name Priority Date/Time Associated Diagnosis Comments LAB SCAN Routine 09/09/2015 documented in this encounter Results * Lab Scan (09/09/2015) Blood specimen (specimen) us Provider External LAB BLOOD ORDERABLES Final Res ult [facility] documented in this encounter Visit Diagnoses Not on filedocumented in this encounter Additional Health Concerns Infection Onset Date Last Indicated Resolved Time COVID-19 03/05/2022 03/05/2022 03/15/2022 7:18 PM EDT documented as of this encounter Care Teams Basket Turner Relationship Specialty Start Date End Date Caitlyn Bowie MD 3400 [facility] 1 [place] [address] PCP - General Internal Medicine 05/06/21 Henry Kelly MD Pulmonary Department 175 [facility], [address] [place] [address] Physician Pulmonary Disease 09/06/17 06/22/20 documented as of this encounter
--- OUTSIDE RECORDS SUMMARY | 2024-10-30 11:12 | XMS_ITS | Encounter Summary ---
Author Organization [facility] and [facility] Address [address] [place] [address] Care Team Providers Care Ironing Worker Name Role Phone Caitlyn Bowie MD Primary Care Provider +1- [phone] Encounter Details Date Type Department Care Team (Late st Contact Info) Description 07/28/2022 Scanned Document [facility] at [address] [address] Norma Renee MD [address] [place] [address] Social History Tobacco Use Types Packs/Day [...] PM EDT Office Visit Hematology Program at [address] - [address] [place] [address] Ronald Mills MD [address] [place] [address] documented as of this encounter Visit Diagnoses Not on filedocumented in this encounter Additional Health Concerns Assessment Noted Time PHQ-9 Depression Total Score: 2 11/07/19 19 2:06 PM EDT documented as of this encounter Care Teams Ironing Worker Relationship Specialty Start Date End Date Caitlyn Bowie MD [address] [address] PCP - General Internal Medicine 05/06/21 documented as of this encounter
--- OUTSIDE RECORDS SUMMARY | 2024-10-30 11:12 | XMS_ITS | Encounter Summary ---
Author Organization [facility] and [facility] Address [address] [place] [address] Care Team Providers Care Garment Supervisor Name Role Phone Caitlyn Bowie MD Primary Care Provider +1- [phone] Encounter Details Date Type Department Care Team (Late st Contact Info) Description 06/21/2022 Scanned Document INTERFACE DEFAULT [address] [place] [address] System, Provider Not In Social History Tobacco [...] Office Visit [facility] at [address] - [address] [place] [address] Ronald Mills MD [address] [place] [phone] documented as of this encounter Procedures [...] as of this encounter Care Teams Garment Supervisor Relationship Specialty Start Date End Date Caitlyn Bowie MD [address] [address] PCP - General Internal Medicine 05/06/21 documented as of this encounter
--- OUTSIDE RECORDS SUMMARY | 2024-10-30 11:12 | XMS_ITS | Encounter Summary ---
Author Organization [facility] Address [address] [place] [address] Care Team Providers Care Radio Despatcher Name Role Phone Caitlyn Bowie MD Primary Care Provider +1- [phone] Encounter Details Date Type Department Care Team (Late st Contact Info) Description 10/23/2018 Scanned Document [facility] Health Information Management [address] [place] [address] External, Provider Social History Tobacco Use Types [...] Office Visit [facility] at [address] - [address] [place] [address] Ronald Mills MD [address] [place] [phone] documented as of this encounter Visit Diagnoses Not on filedocumented in this encounter Additional Health Concerns Infection Onset Date Last Indicated Resolved Time COVID-19 03/05/2022 03/05/2022 03/15/2022 7:18 PM EDT documented as of this encounter Care Teams Radio Despatcher Relationship Specialty Start Date End Date Caitlyn Bowie MD 3400 [facility] 1 [place] [address] PCP - General Internal Medicine 05/06/21 Henry Kelly MD Pulmonary Department [address] [place] [address], [address] [place] [address] Physician Pulmonary Disease 09/06/17 06/22/20 documented as of this encounter
--- OUTSIDE RECORDS SUMMARY | 2024-10-30 11:12 | XMS_ITS | Encounter Summary ---
Author Organization [facility] and [facility] Address [address] [place] [address] Care Team Providers Care Health Insurance Agent Name Role Phone Caitlyn Bowie MD Primary Care Provider +1- [phone] Encounter Details Date Type Department Care Team (Late Contact Info) Description 12/06/2018 Scanned Document [facility] Health Information Management [address] [place] [address] External, Provider Social History Tobacco Use Types [...] Office Visit [facility] at [address] [place] [address] Ronald Mills MD [address] [place] [phone] documented as of this encounter Procedures [...] as of this encounter Care Teams Health Insurance Agent Relationship Specialty Start Date End Date Caitlyn Bowie MD 3400 [facility] 1 [place] [address] PCP - General Internal Medicine 05/06/21 Henry Kelly MD Pulmonary Department 175 [facility], [address] [place] [address] Physician Pulmonary Disease 09/06/17 06/22/20 documented as of this encounter
--- OUTSIDE RECORDS SUMMARY | 2024-10-30 11:12 | XMS_ITS | Encounter Summary ---
Author Organization [facility] and [facility] Address [address] [place] [address] Care Team Providers Care Bottling Line Operator Name Role Phone Caitlyn Bowie MD Primary Care Provider +1- [phone] Encounter Details Date Type Department Care Team (Late st Contact Info) Description 08/28/2015 Scanned Document [facility] Health Information Management [address] [place] [address] External, Provider Social History Tobacco Use Types [...] Office Visit [facility] at [address] - [address] [place] [address] Ronald Mills MD [address] [place] [phone] documented as of this encounter Visit Diagnoses Not on filedocumented in this encounter Additional Health Concerns Infection Onset Date Last Indicated Resolved Time COVID-19 03/05/2022 03/05/2022 03/15/2022 7:18 PM EDT documented as of this encounter Care Teams Bottling Line Operator Relationship Specialty Start Date End Date Caitlyn Bowie MD 3400 [facility] 1 [place] [address] PCP - General Internal Medicine 05/06/21 Henry Kelly MD Pulmonary Department 175 [facility], [address] [place] [address] Physician Pulmonary Disease 09/06/17 06/22/20 documented as of this encounter
--- OUTSIDE RECORDS SUMMARY | 2024-10-30 11:12 | XMS_ITS | Encounter Summary ---
Author Organization [facility] and [facility] Address [address] [place] [address] Care Team Providers Care Bologna Maker Name Role Phone Caitlyn Bowie MD Primary Care Provider +1- [phone] Encounter Details Date Type Department Care Team (Late st Contact Info) Description 07/06/2021 Scanned Document INTERFACE DEFAULT [address] [place] [address] System, Provider Not In Social History Tobacco [...] Office Visit [facility] at [address] - [address] [place] [address] Ronald Mills MD [address] [place] [phone] documented as of this encounter Visit Diagnoses Not on filedocumented in this encounter Additional Health Concerns Infection Onset Date Last Indicated Resolved Time COVID-19 03/05/2022 03/05/2022 03/15/2022 7:18 PM EDT Assessment Noted Time PHQ-9 Depression Total Score: 2 11/07/19 19 2:06 PM EDT documented as of this encounter Care Teams Bologna Maker Relationship Specialty Start Date End Date Caitlyn Bowie MD [address] [address] PCP - General Internal Medicine 05/06/21 documented as of this encounter
--- OUTSIDE RECORDS SUMMARY | 2024-10-30 11:13 | XMS_ITS | Encounter Summary ---
Author Organization [facility] and [facility] Address [address] [place] [address] Care Team Providers Care Clubhouse Manager Name Role Phone Caitlyn Bowie MD Primary Care Provider +1- [phone] Encounter Details Date Type Department Care Team (Late st Contact Info) Description 04/19/2022 Scanned Document INTERFACE DEFAULT [address] [place] [address] System, Provider Not In Social History Tobacco [...] Office Visit [facility] at [address] - [address] [place] [address] Ronald Mills MD [address] [place] [phone] documented as of this encounter Procedures [...] documented as of this encounter Care Teams Clubhouse Manager Relationship Specialty Start Date End Date Caitlyn Bowie MD [address] [address] PCP - General Internal Medicine 05/06/21 documented as of this encounter
--- OUTSIDE RECORDS SUMMARY | 2024-10-30 11:13 | XMS_ITS | Encounter Summary ---
Author Organization [facility] and [facility] Address [address] [place] [address] Care Team Providers Care Metal Furniture Panel Coverer Name Role Phone Caitlyn Bowie MD Primary Care Provider +1- [phone] Encounter Details Date Type Department Care Team (Late Contact Info) Description 01/30/2019 Scanned Document [facility] Health Information Management [address] [place] [address] External, Provider Social History Tobacco Use Types [...] Office Visit [facility] at [address] [place] [address] Ronald Mills MD [address] [place] [phone] documented as of this encounter Procedures [...] as of this encounter Care Teams Metal Furniture Panel Coverer Relationship Specialty Start Date End Date Caitlyn Bowie MD 3400 [facility] 1 [place] [address] PCP - General Internal Medicine 05/06/21 Henry Kelly MD Pulmonary Department 175 [facility], [address] [place] [address] Physician Pulmonary Disease 09/06/17 06/22/20 documented as of this encounter
--- OUTSIDE RECORDS SUMMARY | 2024-10-30 11:13 | XMS_ITS | Encounter Summary ---
Author Organization [facility] and [facility] Address [address] [place] [address] Care Team Providers Care Gunner'S Mate Name Role Phone Caitlyn Bowie MD Primary Care Provider +1- [phone] Encounter Details Date Type Department Care Team (Late st Contact Info) Description 12/16/2015 Scanned Document [facility] Health Information Management [address] [place] [address] External, Provider Social History Tobacco Use Types [...] Office Visit [facility] at [address] [place] [address] Ronald Mills MD [address] [place] [phone] documented as of this encounter Procedures Procedure Name Priority Date/Time Associated Diagnosis Comments US RESULT SCAN Routine 12/16/2015 documented in this encounter Results * US Result Scan (12/16/2015) us Provider External IMG SCAN REPORTS Edited Result - Final [facility] [place], [place], [facility] documented in this encounter Visit Diagnoses Not on filedocumented in this encounter Additional Health Concerns Infection Onset Date Last Indicated Resolved Time COVID-19 03/05/2022 03/05/2022 03/15/2022 7:18 PM EDT documented as of this encounter Care Teams Gunner'S Mate Relationship Specialty Start Date End Date Caitlyn Bowie MD 3400 [facility] 1 [place] [address] PCP - General Internal Medicine 05/06/21 Henry Kelly MD Pulmonary Department 175 [facility], [address] [place] [address] Physician Pulmonary Disease 09/06/17 06/22/20 documented as of this encounter
--- OUTSIDE RECORDS SUMMARY | 2024-10-30 11:13 | XMS_ITS | Encounter Summary ---
Author Organization [facility] and [facility] Address [address] [place] [address] Care Team Providers Care Development Scientist Name Role Phone Caitlyn Bowie MD Primary Care Provider +1- [phone] Encounter Details Date Type Department Care Team (Late st Contact Info) Description 04/25/2022 Scanned Document INTERFACE DEFAULT [address] [place] [address] System, Provider Not In Social History Tobacco [...] Office Visit [facility] at [address] [place] [address] Ronald Mills MD [address] [place] [phone] documented as of this encounter Visit Diagnoses Not on filedocumented in this encounter Additional Health Concerns Assessment Noted Time PHQ-9 Depression Total Score: 2 11/07/19 19 2:06 PM EDT documented as of this encounter Care Teams Development Scientist Relationship Specialty Start Date End Date Caitlyn Bowie MD [address] [address] PCP - General Internal Medicine 05/06/21 documented as of this encounter
--- OUTSIDE RECORDS SUMMARY | 2024-10-30 11:13 | XMS_ITS | Encounter Summary ---
Author Organization [facility] Address [address] [place] [address] Care Team Providers Care Acoustical Material Worker Name Role Phone Caitlyn Bowie MD Primary Care Provider +1- [phone] Encounter Details Date Type Department Care Team (Late st Contact Info) Description 03/20/2023 Scanned Document [facility] Radiology [address] [place] [address] Caitlyn Bowie MD 3400 [place] [address] Social History Tobacco Use Types Packs/Day Years [...] on filedocumented in this encounter Care Teams Acoustical Material Worker Relationship Specialty Start Date End Date Caitlyn Bowie MD 3400 [place] [address] PCP - General Internal Medicine 03/20/23 documented as of this encounter
--- OUTSIDE RECORDS SUMMARY | 2024-10-30 11:13 | XMS_ITS | Encounter Summary ---
Author Organization [facility] and [facility] Address [address] [place] [address] Care Team Providers Care Networking Engineer Name Role Phone Caitlyn Bowie MD Primary Care Provider +1- [phone] Encounter Details Date Type Department Care Team (Late Contact Info) Description 04/12/2022 Scanned Document [facility] Health Information Management [address] [place] [address] External, Provider Social History Tobacco Use Types [...] [facility] Visit [facility] [address] - [address] [place] [address] Ronald Mills MD [address] [place] [phone] documented as of this encounter Procedures [...] documented as of this encounter Care Teams Networking Engineer Relationship Specialty Start Date End Date Caitlyn Bowie MD [address] [address] PCP - General Internal Medicine 05/06/21 documented as of this encounter
--- OUTSIDE RECORDS SUMMARY | 2024-10-30 11:13 | XMS_ITS | Encounter Summary ---
Author Organization [facility] and [facility] Address [address] [place] [address] Care Team Providers Care Flight Attendant/Inflight Manager Name Role Phone Caitlyn Bowie MD Primary Care Provider +1- [phone] Encounter Details Date Type Department Care Team (Late st Contact Info) Description 11/04/2015 Scanned Document COUNTS INCLUDE 234 BEDS AT THE [facility] Health Information Management [address] [place] [address] External, Provider Social History Tobacco Use Types [...] Office Visit [facility] at [address] - [address] [place] [address] Ronald Mills MD [address] [place] [phone] documented as of this encounter Procedures Procedure Name Priority Date/Time Associated Diagnosis Comments NUC MED/PET RESULT SCAN Routine 11/04/2015 documented in this encounter Results * Nuc Med/PET Result Scan (11/04/2015) us Provider External IMG SCAN REPORTS Edited Result - Final Performing Organization Address City/State/[facility] Co de Phone Number [facility] [place], [place], [facility] documented in this encounter Visit Diagnoses Not on filedocumented in this encounter Additional Health Concerns Infection Onset Date Last Indicated Resolved Time COVID-19 03/05/2022 03/05/2022 03/15/2022 7:18 PM EDT documented as of this encounter Care Teams Flight Attendant/Inflight Manager Relationship Specialty Start Date End Date Caitlyn Bowie MD 3400 [facility] 1 [place] [address] PCP - General Internal Medicine 05/06/21 Henry Kelly MD Pulmonary Department 175 [facility], [address] [place] [address] Physician Pulmonary Disease 09/06/17 06/22/20 documented as of this encounter
--- OUTSIDE RECORDS SUMMARY | 2024-10-30 11:13 | XMS_ITS | Encounter Summary ---
Author Organization [facility] and [facility] Address [address] [place] [address] Care Team Providers Care Farm Equipment Mechanic Apprentice Name Role Phone Caitlyn Bowie MD Primary Care Provider +1- [phone] Encounter Details Date Type Department Care Team (Late Contact Info) Description 03/02/2022 Scanned Document [facility] Health Information Management [address] [place] [address] External, Provider Social History Tobacco Use Types [...] Office Visit [facility] at [address] - [address] [place] [address] Ronald Mills MD [address] [place] [phone] documented as of this encounter Visit Diagnoses Not on filedocumented in this encounter Additional Health Concerns Infection Onset Date Last Indicated Resolved Time COVID-19 03/05/2022 03/05/2022 03/15/2022 7:18 PM EDT Assessment Noted Time PHQ-9 Depression Total Score: 2 11/07/19 19 2:06 PM EDT documented as of this encounter Care Teams Farm Equipment Mechanic Apprentice Relationship Specialty Start Date End Date Caitlyn Bowie MD [address] [address] PCP - General Internal Medicine 05/06/21 documented as of this encounter
--- OUTSIDE RECORDS SUMMARY | 2024-10-30 11:13 | XMS_ITS | Encounter Summary ---
Author Organization [facility] Address [address] [place] [phone] Care Team Providers Care Poultry Grader Name Role Phone Caitlyn Bowie MD Primary Care Provider +1- [phone] Encounter Details Date Type Department Care Team (Late st Contact Info) Description 04/22/2019 Scanned Document [facility] Health Information Management [address] [place] [address] External, Provider Social History Tobacco Use Types [...] Office Visit [facility] at [address] - [address] [place] [address] Ronald Mills MD [address] [place] [phone] documented as of this encounter Visit Diagnoses Not on filedocumented in this encounter Additional Health Concerns Infection Onset Date Last Indicated Resolved Time COVID-19 03/05/2022 03/05/2022 03/15/2022 7:18 PM EDT Assessment Noted Time PHQ-9 Depression Total Score: 2 11/07/19 19 2:06 PM EDT documented as of this encounter Care Teams Poultry Grader Relationship Specialty Start Date End Date Caitlyn Bowie MD 3400 [facility] 1 [place] [address] PCP - General Internal Medicine 05/06/21 Henry Kelly MD Pulmonary Department 175 [facility], [address] [place] [address] Physician Pulmonary Disease 09/06/17 06/22/20 documented as of this encounter
--- OUTSIDE RECORDS SUMMARY | 2024-10-30 11:13 | XMS_ITS | Encounter Summary ---
Author Organization [facility] Address [address] [place] [phone] Care Team Providers Care Family Services Assistant Name Role Phone Caitlyn Bowie MD Primary Care Provider +1- [phone] Encounter Details Date Type Department Care Team (Late st Contact Info) Description 12/31/2015 Scanned Document [facility] [address] [place] [address] External, Provider Social History Tobacco Use Types [...] EDT Office Visit Hematology Program at [address] [address] Ronald Mills MD [address] [place] [phone] documented as of this encounter Procedures Procedure Name Priority Date/Time Associated Diagnosis Comments LAB SCAN Routine 12/31/2015 documented in this encounter Results * Lab Scan (12/31/2015) Blood specimen (specimen) us Provider External LAB BLOOD ORDERABLES Final Res ult Performing Organization Address City/State/[facility] Co de Phone Number [facility] documented in this encounter Visit Diagnoses Not on filedocumented in this encounter Additional Health Concerns Infection Onset Date Last Indicated Resolved Time COVID-19 03/05/2022 03/05/2022 03/15/2022 7:18 PM EDT documented as of this encounter Care Teams Family Services Assistant Relationship Specialty Start Date End Date Caitlyn Bowie MD 3400 [facility] 1 [place] [address] PCP - General Internal Medicine 05/06/21 Henry Kelly MD Pulmonary Department 175 [facility], [address] [place] [address] Physician Pulmonary Disease 09/06/17 06/22/20 documented as of this encounter
--- OUTSIDE RECORDS SUMMARY | 2024-10-30 11:13 | XMS_ITS | Encounter Summary ---
Author Organization [facility] Address [address] [place] [address] Care Team Providers Care Manager Respiratory Care Name Role Phone Caitlyn Bowie MD Primary Care Provider +1- [phone] Encounter Details Date Type Department Care Team (Late st Contact Info) Description 04/13/2022 Scanned Document INTERFACE DEFAULT [address] [place] [address] System, Provider Not In Social History Tobacco [...] Office Visit [facility] at [address] - [address] [place] [address] Ronald Mills MD [address] [place] [phone] documented as of this encounter Procedures [...] as of this encounter Care Teams Manager Respiratory Care Relationship Specialty Start Date End Date Caitlyn Bowie MD [address] [address] PCP - General Internal Medicine 05/06/21 documented as of this encounter
--- OUTSIDE RECORDS SUMMARY | 2024-10-30 11:13 | XMS_ITS | Encounter Summary ---
Author Organization [facility] Address [address] [place] [address] Care Team Providers Care Technical Associate Name Role Phone Caitlyn Bowie MD Primary Care Provider +1- [phone] Encounter Details Date Type Department Care Team (Late st Contact Info) Description 01/28/2019 Scanned Document Cardiovascular Medicine at [address] [address] Cristian Arreguin MBBS [address] [place] [address] Social History Tobacco Use Types [...] PM EDT Office Visit Hematology Program at [address] - [address] [phone] Ronald Mills MD [address] [place] [phone] documented as of this encounter Visit Diagnoses Not on filedocumented in this encounter Additional Health Concerns Infection Onset Date Last Indicated Resolved Time COVID-19 03/05/2022 03/05/2022 03/15/2022 7:18 PM EDT Assessment Noted Time PHQ-9 Depression Total Score: 2 11/07/19 19 2:06 PM EDT documented as of this encounter Care Teams Technical Associate Relationship Specialty Start Date End Date Caitlyn Bowie MD 3400 [facility] 1 [place] [address] PCP - General Internal Medicine 05/06/21 Henry Kelly MD Pulmonary Department [address] [place] [address], [address] [place] [address] Physician Pulmonary Disease 09/06/17 06/22/20 documented as of this encounter
--- OUTSIDE RECORDS SUMMARY | 2024-10-30 11:13 | XMS_ITS | Encounter Summary ---
Author Organization [facility] Address [address] [place] [address] Care Team Providers Care Home Care Physical Therapist Name Role Phone Caitlyn Bowie MD Primary Care Provider +1- [phone] Encounter Details Date Type Department Care Team (Latest Contact Info) Description 12/25/2015 Transcribed Orders [facility] Draw Station [address] [place] [address] [place] [address] Osmel Briscoe MD Other abnormality of red [...] Office Visit [facility] at [address] - [address] [place] [address] Ronald Mills MD [address] [place] [phone] documented as of this encounter Results * Free kappa lambda with ratio, serum ( GH Q YH) (12/25/2015 10:09 AM EDT) Ig [place] Free Light Chain 1.84 0.33 - 1.94 mg/dL [facility] Ig Lambda Free Light Chain 1.96 0.57 - 2.63 mg/dL [facility] [place]/Lambda FLC Ratio 0.94 0.26 - 1.65 [facility] Blood specimen (specimen) 12/25/2015 10:09 AM EDT Osmel Briscoe MD LAB BLOOD ORDERABLES Final R esult Performing Organization Address [facility] de Phone Number [facility] [address] [place] [address] * Immunofixation, serum ( L Q YH) (12/25/2015 10:09 AM EDT) [facility] Immunofixation Electrophoresis Gel See below See [...] ORDERABLES Final R esult Performing Organization Address [facility] de Phone Number [facility] [address] [place] [address] * (ABNORMAL) Protein electrophoresis, serum ( GH L YH) (12/25/2015 10:09 AM EDT) Albumin Electrophoresis 3.45(L) 3.50 - 4.70 g/dL [facility] Zlyya-3-Ivfzwetk 0.16 0.10 - 0.30 g/dL [facility] Enbmp-0-Zasoanbq 0.81 0.60 - 1.00 g/dL [facility] [...] ORDERABLES Final R esult Performing Organization Address [facility]/ZIP Co de Phone Number [facility] [address] [place] [address] * Reticulocytes (GH L Q YH) (12/25/2015 10:09 AM EDT) Reticulocyte Count 2.1 0.6 - 2.7 % [facility] Blood specimen (specimen) 12/25/2015 10:09 AM EDT Osmel Briscoe MD LAB BLOOD ORDERABLES Final R esult Performing Organization Address [facility] Co de Phone Number [facility] [address] [place] [address] * (ABNORMAL) Sedimentation rate (ESR) (12/25/2015 10:09 AM EDT) Sed Rate 27(H) 0 - 20 mm/hr [facility] Blood specimen (specimen) 12/25/2015 10:09 AM EDT Osmel Briscoe MD LAB BLOOD ORDERABLES Final R esult Performing Organization Address [facility] Co de Phone Number [facility] [address] [place] [phone] * Ferritin (12/25/2015 10:09 AM EDT) Ferritin 68 9 - 120 ng/mL [facility] Blood specimen (specimen) 12/25/2015 10:09 AM EDT Osmel Briscoe MD LAB BLOOD ORDERABLES Final R esult Performing Organization Address [facility] Co de Phone Number [facility] [address] [place] [address] * Iron and TIBC (12/25/2015 10:09 AM EDT) Iron 110 50 - 170 ug/dL [facility] TIBC 290 250 - 450 ug/dL [facility] Iron Saturation 38 15 - 50 [facility] Blood specimen (specimen) 12/25/2015 10:09 AM EDT Osmel Briscoe MD LAB BLOOD ORDERABLES Final R esult Performing Organization Address [facility] de Phone Number [facility] [address] [place] [phone] * Vitamin D 25 hydroxy (BH L [...] R esult Performing Organization Address City/[facility]/ZIP Co de Phone Number [facility] [address] [place] [address] * TSH (BH L YH) (12/25/2015 10:09 AM EDT) Pathologist [facility] TSH cancelled 0.3 - 4.2 uU/mL [facility] TSH 1.62 0.3 - 4.2 uU/mL [facility] Comment:This test is a third generation TSH assay. Blood specimen (specimen) 12/25/2015 10:09 AM EDT Osmel Briscoe MD LAB BLOOD ORDERABLES Final R esult Performing Organization Address City/[facility] Co de Phone Number [facility] [address] [place] [address] * (ABNORMAL) CBC and differential (12/25/2015 10:09 AM EDT) [facility] CBC with Differential See Below [facility] Monocytes 10 2 - 15 % [facility] Eosinophils 1 0 - 5 % [facility] Basophils 0 0 - 2 % [facility] ANC (Abs Neutrophil Count) 8.1 1.0 - 9.0 x 1000/uL [facility] Absolute Lymphocyte Count 0.7 0.6 - 4.6 x 1000/uL [facility] Blood specimen (specimen) ARM NEC / Unknown 12/25/2015 10:09 AM EDT us Osmel Briscoe MD LAB BLOOD ORDERABLES Final R esult [facility] [address] [place] [address] documented in this encounter Visit Diagnoses Diagnosis [...] as of this encounter Care Teams Home Care Physical Therapist Relationship Specialty Start Date End Date Caitlyn oBwie MD [facility] [address] [address] PCP - General Internal Medicine 05/06/21 Henry Kelly MD Pulmonary Department [address] [place] [address], [address] [place] [address] Physician Pulmonary Disease 09/06/17 06/22/20 documented as of this encounter
--- OUTSIDE RECORDS SUMMARY | 2024-10-30 11:13 | XMS_ITS | Encounter Summary ---
Author Organization [facility] and [facility] Address [address] [place] [address] Care Team Providers Care Wallpaper Hanger Name Role Phone Caitlyn Bowie MD Primary Care Provider +1- [phone] Encounter Details Date Type Department Care Team (Late st Contact Info) Description 12/03/2015 Scanned Document [facility] Health Information Management [address] [place] [address] External, Provider Social History Tobacco Use Types [...] Office Visit [facility] at [address] - [address] [place] [address] Ronald Mills MD [address] [place] [phone] documented as of this encounter Procedures Procedure Name Priority Date/Time Associated Diagnosis Comments LAB SCAN Routine 12/03/2015 documented in this encounter Results * Lab Scan (12/03/2015) Blood specimen (specimen) us Provider External LAB BLOOD ORDERABLES Edited Re germánt - Final [facility] [place], [place], [facility] documented in this encounter Visit Diagnoses Not on filedocumented in this encounter Additional Health Concerns Infection Onset Date Last Indicated Resolved Time COVID-19 03/05/2022 03/05/2022 03/15/2022 7:18 PM EDT documented as of this encounter Care Teams Wallpaper Hanger Relationship Specialty Start Date End Date Caitlyn Bowie MD 3400 [facility] 1 [place] [address] PCP - General Internal Medicine 05/06/21 Henry Kelly MD Pulmonary Department 175 [facility], [address] [place] [address] Physician Pulmonary Disease 09/06/17 06/22/20 documented as of this encounter
--- OUTSIDE RECORDS SUMMARY | 2024-10-30 11:13 | XMS_ITS | Encounter Summary ---
Author Organization [facility] Address [address] [place] [address] Care Team Providers Care Nremt Name Role Phone Caitlyn Bowie MD Primary Care Provider +1- [phone] Encounter Details Date Type Department Care Team (Late st Contact Info) Description 04/18/2022 Scanned Document INTERFACE DEFAULT [address] [place] [address] System, Provider Not In Social History Tobacco [...] Office Visit [facility] at [address] - [address] [place] [address] Ronald Mills MD [address] [place] [phone] documented as of this encounter Visit Diagnoses Not on filedocumented in this encounter Additional Health Concerns Assessment Noted Time PHQ-9 Depression Total Score: 2 11/07/19 19 2:06 PM EDT documented as of this encounter Care Teams Nremt Relationship Specialty Start Date End Date Caitlyn Bowie MD [address] [address] PCP - General Internal Medicine 05/06/21 documented as of this encounter
--- OUTSIDE RECORDS SUMMARY | 2024-10-30 11:13 | XMS_ITS | Encounter Summary ---
Author Organization [facility] Address [address] [place] [address] Care Team Providers Care Nurse Healthcare Manager Name Role Phone Caitlyn Bowie MD Primary Care Provider +1- [phone] Encounter Details Date Type Department Care Team (Late Contact Info) Description 01/26/2019 Scanned Document [facility] Health Information Management [address] [place] [address] External, Provider Social History Tobacco Use Types [...] Office Visit [facility] at [address] - [address] [place] [address] Ronald Mills MD [address] [place] [phone] documented as of this encounter Procedures [...] as of this encounter Care Teams Nurse Healthcare Manager Relationship Specialty Start Date End Date Caitlyn Bowie MD 3400 [facility] 1 [place] [address] PCP - General Internal Medicine 05/06/21 Henry Kelly MD Pulmonary Department 175 [facility], [address] [place] [address] Physician Pulmonary Disease 09/06/17 06/22/20 documented as of this encounter
--- OUTSIDE RECORDS SUMMARY | 2024-10-30 11:13 | XMS_ITS | Encounter Summary ---
Author Organization [facility] Address [address] [place] [address] Care Team Providers Care Hoseman Name Role Phone Caitlyn Bowie MD Primary Care Provider +1- [phone] Encounter Details Date Type Department Care Team (Late st Contact Info) Description 04/22/2022 Scanned Document INTERFACE DEFAULT [address] [place] [address] System, Provider Not In Social History Tobacco [...] Office Visit [facility] at [address] - [address] [place] [address] Ronald Mills MD [address] [place] [phone] documented as of this encounter Procedures [...] documented as of this encounter Care Teams Hoseman Relationship Specialty Start Date End Date Caitlyn Bowie MD [address] [address] PCP - General Internal Medicine 05/06/21 documented as of this encounter
--- OUTSIDE RECORDS SUMMARY | 2024-10-30 11:13 | XMS_ITS | Encounter Summary ---
Author Organization [facility] Address [address] [place] [address] Care Team Providers Care Child Adolescent Psychiatrist Name Role Phone Caitlyn Bowie MD Primary Care Provider +1- [phone] Encounter Details Date Type Department Care Team (Late st Contact Info) Description 12/29/2021 Telephone [facility] at [address] - [address] [address] Ronald Mills MD [address] [place] [phone] Social History Tobacco Use Types Packs/Day [...] not sure where the blood's coming from. [phone] documented in this encounter Plan of Treatment Upcoming Encounters Date Type Department Care Team (Late st Contact Info) Description 10/31/2024 1:00 PM EDT Office Visit [facility] at [address] [place] [address] Ronald Mills MD [address] [facility] [address] [place] [address] documented as of this encounter Visit Diagnoses Not on filedocumented in this encounter Additional Health Concerns Infection Onset Date Last Indicated Resolved Time COVID-19 03/05/2022 03/05/2022 03/15/2022 7:18 PM EDT Assessment Noted Time PHQ-9 Depression Total Score: 2 11/07/19 19 2:06 PM EDT documented as of this encounter Care Teams Child Adolescent Psychiatrist Relationship Specialty Start Date End Date Caitlyn Bowie MD [address] [address] PCP - General Internal Medicine 05/06/21 documented as of this encounter
--- OUTSIDE RECORDS SUMMARY | 2024-10-30 11:13 | XMS_ITS | Encounter Summary ---
Author Organization [facility] and [facility] Address [address] [place] [address] Care Team Providers Care Mechanical Project Manager Name Role Phone Caitlyn Bowie MD Primary Care Provider +1- [phone] Encounter Details Date Type Department Care Team (Late st Contact Info) Description 01/28/2019 Scanned Document [facility] Health Information Management [address] [place] [address] External, Provider Social History Tobacco Use Types [...] [facility] [address] [place] [address] Ronald Mills MD [address] [place] [phone] documented as of this encounter Visit Diagnoses Not on filedocumented in this encounter Additional Health Concerns Infection Onset Date Last Indicated Resolved Time COVID-19 03/05/2022 03/05/2022 03/15/2022 7:18 PM EDT Assessment Noted Time PHQ-9 Depression Total Score: 2 11/07/19 19 2:06 PM EDT documented as of this encounter Care Teams Mechanical Project Manager Relationship Specialty Start Date End Date Caitlyn Bowie MD 3400 [facility] [address] [place] [address] PCP - General Internal Medicine 05/06/21 Henry Kelly MD Pulmonary Department 175 [facility], [address] [place] [address] Physician Pulmonary Disease 09/06/17 06/22/20 documented as of this encounter
--- OUTSIDE RECORDS SUMMARY | 2024-10-30 11:13 | XMS_ITS | Encounter Summary ---
Author Organization [facility] and [facility] Address [address] [place] [address] Care Team Providers Care Environmental Assistant Name Role Phone Caitlyn Bowie MD Primary Care Provider +1- [phone] Encounter Details Date Type Department Care Team (Late st Contact Info) Description 04/11/2019 Scanned Document [facility] Health Information Management [address] [place] [address] External, Provider Social History Tobacco Use Types [...] [facility] Visit [facility] at [address] - [address] [place] [address] Ronald Mills MD [address] [place] [phone] documented as of this encounter Procedures [...] as of this encounter Care Teams Environmental Assistant Relationship Specialty Start Date End Date Caitlyn Bowie MD [address] [facility] Max 1 [place] [address] PCP - General Internal Medicine 05/06/21 Henry Kelly MD Pulmonary Department 175 [facility], [address] [place] [address] Physician Pulmonary Disease 09/06/17 06/22/20 documented as of this encounter
--- OUTSIDE RECORDS SUMMARY | 2024-10-30 11:13 | XMS_ITS | Encounter Summary ---
Author Organization [facility] and [facility] Address [address] [place] [address] Care Team Providers Care Retail Pharmacy Manager Name Role Phone Caitlyn Bowie MD Primary Care Provider +1- [phone] Reason for Visit * Reason Comments Results Encounter Details Date Type Department Care Team (Late st Contact Info) Description 03/15/2022 Telephone [facility] [address] [address] Ronald Mills MD [address] [place] [phone] Results Social History Tobacco Use Types [...] We do not manage patient's INR. Dr. iMlls reached out to patient directly via email. [...] Office Visit [facility] at [address] - [address] [facility], [place] [address] Ronald Mills MD [address] [facility] [address] [place] [address] documented as of this encounter Visit Diagnoses Not on filedocumented in this encounter Additional Health Concerns Infection Onset Date Last Indicated Resolved Time COVID-19 03/05/2022 03/05/2022 03/15/2022 7:18 PM EDT Assessment Noted Time PHQ-9 Depression Total Score: 2 11/07/19 19 2:06 PM EDT documented as of this encounter Care Teams Retail Pharmacy Manager Relationship Specialty Start Date End Date Caitlyn Bowie MD [address] [address] PCP - General Internal Medicine 05/06/21 documented as of this encounter
--- OUTSIDE RECORDS SUMMARY | 2024-10-30 11:13 | XMS_ITS | Encounter Summary ---
Author Organization [facility] and [facility] Address [address] [place] [address] Care Team Providers Care Pharmaceutical Process Engineer Name Role Phone Caitlyn Bowie MD Primary Care Provider +1- [phone] Encounter Details Date Type Department Care Team (Late st Contact Info) Description 03/12/2019 Scanned Document [facility] Health Information Management [address] [place] [address] External, Provider Social History Tobacco Use [...] Office Visit [facility] at [address] [place] [address] Ronald Mills MD [address] [place] [phone] documented as of this encounter Procedures [...] documented as of this encounter Care Teams Pharmaceutical Process Engineer Relationship Specialty Start Date End Date Caitlyn Bowie MD 3400 [facility] [address] 1 [place] [address] PCP - General Internal Medicine 05/06/21 Henry Kelly MD Pulmonary Department 175 [facility], [address] [place] [address] Physician Pulmonary Disease 09/06/17 06/22/20 documented as of this encounter
--- OUTSIDE RECORDS SUMMARY | 2024-10-30 11:13 | XMS_ITS | Encounter Summary ---
Author Organization [facility] and [facility] Address [address] [place] [address] Care Team Providers Care Forge Shop Machine Repairer Name Role Phone Caitlyn Bowie MD Primary Care Provider +1- [phone] Encounter Details Date Type Department Care Team (Late st Contact Info) Description 04/16/2022 Scanned Document INTERFACE DEFAULT [address] [place] [address] System, Provider Not In Social History Tobacco [...] Office Visit [facility] at [address] [place] [address] Ronald Mills MD [address] [place] [phone] documented as of this encounter Procedures [...] documented as of this encounter Care Teams Forge Shop Machine Repairer Relationship Specialty Start Date End Date Caitlyn Bowie MD [address] [address] PCP - General Internal Medicine 05/06/21 documented as of this encounter
--- OUTSIDE RECORDS SUMMARY | 2024-10-30 11:13 | XMS_ITS | Encounter Summary ---
Author Organization [facility] Address [address] [place] [address] Care Team Providers Care Photographer Scientific Name Role Phone Caitlyn Bowie MD Primary Care Provider +1- [phone] Encounter Details Date Type Department Care Team (Late st Contact Info) Description 01/08/2022 Scanned Document INTERFACE DEFAULT [address] [place] [address] System, Provider Not In Social History Tobacco [...] Office Visit [facility] at [address] - [address] [place] [address] Ronald Mills MD [address] [place] [phone] documented as of this encounter Procedures [...] as of this encounter Care Teams Photographer Scientific Relationship Specialty Start Date End Date Caitlyn Bowie MD [address] [address] PCP - General Internal Medicine 05/06/21 documented as of this encounter
--- OUTSIDE RECORDS SUMMARY | 2024-10-30 11:13 | XMS_ITS | Encounter Summary ---
Author Organization [facility] and [facility] Address [address] [place] [address] Care Team Providers Care Cable Splicer Name Role Phone Caitlyn Bowie MD Primary Care Provider +1- [phone] Encounter Details Date Type Department Care Team (Late st Contact Info) Description 12/01/2015 Scanned Document [facility] Health Information Management [address] [place] [address] External, Provider Social History Tobacco Use Types [...] Office Visit [facility] at [address] - [address] [place] [address] Ronald Mills MD [address] [place] [phone] documented as of this encounter Procedures Procedure Name Priority Date/Time Associated Diagnosis Comments CT RESULT SCAN Routine 12/01/2015 documented in this encounter Results * CT Result Scan (12/01/2015) us Provider External IMG SCAN REPORTS Edited Result - Final [facility] [place], [place], [facility] documented in this encounter Visit Diagnoses Not on filedocumented in this encounter Additional Health Concerns Infection Onset Date Last Indicated Resolved Time COVID-19 03/05/2022 03/05/2022 03/15/2022 7:18 PM EDT documented as of this encounter Care Teams Cable Splicer Relationship Specialty Start Date End Date Caitlyn Bowie MD 3400 [facility] [address] 1 [place] [address] PCP - General Internal Medicine 05/06/21 Henry Kelly MD Pulmonary Department 175 [facility], [address] [place] [address] Physician Pulmonary Disease 09/06/17 06/22/20 documented as of this encounter
--- OUTSIDE RECORDS SUMMARY | 2024-10-30 11:13 | XMS_ITS | Encounter Summary ---
Author Organization [facility] and [facility] Address [address] [place] [address] Care Team Providers Care Braker Passenger Train Name Role Phone Caitlyn Bowie MD Primary Care Provider +1- [phone] Encounter Details Date Type Department Care Team (Late st Contact Info) Description 02/06/2019 Scanned Document [facility] Health Information Management [address] [place] [address] External, Provider Social History Tobacco Use Types [...] Office Visit [facility] at [address] [place] [address] Ronald Mills MD [address] [place] [phone] documented as of this encounter Procedures [...] documented as of this encounter Care Teams Braker Passenger Train Relationship Specialty Start Date End Date Caitlyn Bowie MD 3400 [facility] [address] 1 [place] [address] PCP - General Internal Medicine 05/06/21 Henry Kelly MD Pulmonary Department 175 [facility], [address] [place] [address] Physician Pulmonary Disease 09/06/17 06/22/20 documented as of this encounter
--- OUTSIDE RECORDS SUMMARY | 2024-10-30 11:13 | XMS_ITS | Encounter Summary ---
Author Organization [facility] and [facility] Address [address] [place] [address] Care Team Providers Care Auxiliary Powerplant Operator Name Role Phone Caitlyn Bowie MD Primary Care Provider +1- [phone] Encounter Details Date Type Department Care Team (Late st Contact Info) Description 04/14/2022 Scanned Document INTERFACE DEFAULT [address] [place] [address] System, Provider Not In Social History Tobacco [...] Office Visit [facility] at [address] - [address] [place] [address] Ronald Mills MD [address] [place] [phone] documented as of this encounter Visit Diagnoses Not on filedocumented in this encounter Additional Health Concerns Assessment Noted Time PHQ-9 Depression Total Score: 2 11/07/19 19 2:06 PM EDT documented as of this encounter Care Teams Auxiliary Powerplant Operator Relationship Specialty Start Date End Date Caitlyn Bowie MD [address] [address] PCP - General Internal Medicine 05/06/21 documented as of this encounter
--- OUTSIDE RECORDS SUMMARY | 2024-10-30 11:13 | XMS_ITS | Encounter Summary ---
Author Organization [facility] Address [address] [place] [address] Care Team Providers Care Machine Programmer Name Role Phone Pcp, No Primary Care Provider Brennan Mario MD Primary Care Provider [phone] Caitlyn Bowie MD Primary Care Provider +1- [phone] Encounter Details Date Type Department Care Team (Late st Contact Info) Description 01/04/2022 Scanned Document [facility] Ophthalmology [address] [address] Yary Whitten DO [address] [place] [address] Social History Tobacco Use Types Packs/Day [...] filedocumented in this encounter Care Teams Machine Programmer Relationship Specialty Start Date End Date Pcp, No PCP - General General Medicine 10/04/21 07/18/22 Brennan Burnett MD [address] [place] [address] PCP - General 07/19/22 03/19/23 Caitlyn Bowie MD 3400 [place] [address] PCP - General Internal Medicine 03/20/23 documented as of this encounter
--- OUTSIDE RECORDS SUMMARY | 2024-10-30 11:13 | XMS_ITS | Encounter Summary ---
Author Organization [facility] Address [address] [place] [address] Care Team Providers Care Head Of Mobile Name Role Phone Caitlyn Bowie MD Primary Care Provider +1- [phone] Encounter Details Date Type Department Care Team (Late st Contact Info) Description 11/03/2015 Scanned Document [facility] Health Information Management [address] [place] [address] External, Provider Social History Tobacco Use Types [...] Office Visit [facility] at [address] - [address] [place] [address] Ronald Mills MD [address] [place] [phone] documented as of this encounter Procedures Procedure Name Priority Date/Time Associated Diagnosis Comments US RESULT SCAN Routine 11/03/2015 documented in this encounter Results * US Result Scan (11/03/2015) us Provider External IMG SCAN REPORTS Edited Result - Final [facility] [place], [place], [facility] documented in this encounter Visit Diagnoses Not on filedocumented in this encounter Additional Health Concerns Infection Onset Date Last Indicated Resolved Time COVID-19 03/05/2022 03/05/2022 03/15/2022 7:18 PM EDT documented as of this encounter Care Teams Head Of Mobile Relationship Specialty Start Date End Date Caitlyn Bowie MD 3400 [facility] [address] 1 [place] [address] PCP - General Internal Medicine 05/06/21 Henry Kelly MD Pulmonary Department 175 [facility], [address] [place] [address] Physician Pulmonary Disease 09/06/17 06/22/20 documented as of this encounter
--- OUTSIDE RECORDS SUMMARY | 2024-10-30 11:13 | XMS_ITS | Encounter Summary ---
Author Organization [facility] Address [address] [place] [address] Care Team Providers Care Chemical Machine Tender Name Role Phone Caitlyn Bowie MD Primary Care Provider +1- [phone] Encounter Details Date Type Department Care Team (Late st Contact Info) Description 04/12/2022 Scanned Document INTERFACE DEFAULT [address] [place] [address] System, Provider Not In Social History Tobacco [...] Office Visit [facility] at [address] - [address] [place] [address] Ronald Mills MD [address] [place] [phone] documented as of this encounter Procedures [...] as of this encounter Care Teams Chemical Machine Tender Relationship Specialty Start Date End Date Caitlyn Bowie MD [address] [address] PCP - General Internal Medicine 05/06/21 documented as of this encounter
--- OUTSIDE RECORDS SUMMARY | 2024-10-30 11:13 | XMS_ITS | Encounter Summary ---
Author Organization [facility] and [facility] Address [address] [place] [address] Care Team Providers Care Director Of Patient Care Name Role Phone Caitlyn Bowie MD Primary Care Provider +1- [phone] Encounter Details Date Type Department Care Team (Late st Contact Info) Description 01/17/2019 Scanned Document [facility] Health Information Management [address] [place] [address] External, Provider Social History Tobacco Use Types [...] Office Visit [facility] at [address] - [address] [place] [address] Ronald Mills MD [address] [place] [phone] documented as of this encounter Procedures [...] of this encounter Care Teams Director Of Patient Care Relationship Specialty Start Date End Date Caitlyn Bowie MD 3400 [facility] 1 [place] [address] PCP - General Internal Medicine 05/06/21 Henry Kelly MD Pulmonary Department 175 [facility], [address] [place] [address] Physician Pulmonary Disease 09/06/17 06/22/20 documented as of this encounter
--- OUTSIDE RECORDS SUMMARY | 2024-10-30 11:14 | XMS_ITS | Encounter Summary ---
Author Organization [facility] Address [address] [place] [address] Care Team Providers Care Senior Benefits Specialist Name Role Phone Caitlyn Bowie MD Primary Care Provider +1- [phone] Encounter Details Date Type Department Care Team (Late st Contact Info) Description 04/23/2024 Scanned Document INTERFACE DEFAULT [address] [place] [address] System, Provider Not In Social History Tobacco [...] Office Visit [facility] at [address] - [address] [place] [address] Ronald Mills MD [address] [place] [phone] documented as of this encounter Procedures [...] as of this encounter Care Teams Senior Benefits Specialist Relationship Specialty Start Date End Date Caitlyn Bowie MD [address] [address] PCP - General Internal Medicine 05/06/21 documented as of this encounter
--- OUTSIDE RECORDS SUMMARY | 2024-10-30 11:14 | XMS_ITS | Encounter Summary ---
Author Organization [facility] Address [address] [place] [address] Care Team Providers Care Sleeve Bottom Feller Name Role Phone Caitlyn Bowie MD Primary Care Provider +1- [phone] Encounter Details Date Type Department Care Team (Late st Contact Info) Description 08/08/2024 Scanned Document INTERFACE DEFAULT [address] [place] [address] System, Provider Not In Social History Tobacco [...] Office Visit [facility] at [address] - [address] [place] [address] Ronald Mills MD [address] [place] [phone] documented as of this encounter Procedures [...] as of this encounter Care Teams Sleeve Bottom Feller Relationship Specialty Start Date End Date Caitlyn Bowie MD [address] [address] PCP - General Internal Medicine 05/06/21 documented as of this encounter
--- OUTSIDE RECORDS SUMMARY | 2024-10-30 11:14 | XMS_ITS | Encounter Summary ---
Author Organization [facility] Address [address] [place] [address] Care Team Providers Care Medical Insurance Verifier Name Role Phone Caitlyn Bowie MD Primary Care Provider +1- [phone] Encounter Details Date Type Department Care Team (Late st Contact Info) Description 01/13/2019 Scanned Document [facility] Health Information Management [address] [place] [phone] External, Provider Social History Tobacco Use Types [...] Office Visit [facility] at [address] - [address] [place] [address] Ronald Mills MD [address] [place] [phone] documented as of this encounter Procedures [...] as of this encounter Care Teams Medical Insurance Verifier Relationship Specialty Start Date End Date Caitlyn Bowie MD 3400 [facility] 1 [place] [address] PCP - General Internal Medicine 05/06/21 Henry Kelly MD Pulmonary Department 175 [facility], [address] [place] [address] Physician Pulmonary Disease 09/06/17 06/22/20 documented as of this encounter
--- OUTSIDE RECORDS SUMMARY | 2024-10-30 11:14 | XMS_ITS | Encounter Summary ---
Author Organization [facility] Address [address] [place] [address] Care Team Providers Care Tube Bending Machine Operator Name Role Phone Caitlyn Bowie MD Primary Care Provider +1- [phone] Encounter Details Date Type Department Care Team (Late st Contact Info) Description 01/02/2019 Scanned Document [facility] Health Information Management [address] [place] [address] External, Provider Social History Tobacco Use Types [...] Office Visit [facility] at [address] - [address] [place] [address] Ronald Mills MD [address] [place] [phone] documented as of this encounter Procedures [...] documented as of this encounter Care Teams Tube Bending Machine Operator Relationship Specialty Start Date End Date Caitlyn Bowie MD 3400 [facility] 1 [place] [address] PCP - General Internal Medicine 05/06/21 Henry Kelly MD Pulmonary Department 175 [facility], [address] [place] [address] Physician Pulmonary Disease 09/06/17 06/22/20 documented as of this encounter
--- OUTSIDE RECORDS SUMMARY | 2024-10-30 11:14 | XMS_ITS | Encounter Summary ---
Author Organization [facility] and [facility] Address [address] [place] [phone] Care Team Providers Care Regional Owner Operator Truck Driver Name Role Phone Caitlyn Bowie MD Primary Care Provider +1- [phone] Encounter Details Date Type Department Care Team (Late st Contact Info) Description 09/23/2024 Scanned Document INTERFACE DEFAULT [address] [place] [address] System, Provider Not In Social History Tobacco [...] Office Visit [facility] at [address] - [address] [place] [address] Ronald Mills MD [address] [place] [phone] documented as of this encounter Procedures [...] as of this encounter Care Teams Regional Owner Operator Truck Driver Relationship Specialty Start Date End Date Caitlyn Bowie MD [address] [address] PCP - General Internal Medicine 05/06/21 documented as of this encounter
--- OUTSIDE RECORDS SUMMARY | 2024-10-30 11:14 | XMS_ITS | Encounter Summary ---
Author Organization [facility] Address [address] [place] [address] Care Team Providers Care Dedenter Name Role Phone Caitlyn Bowie MD Primary Care Provider +1- [phone] Encounter Details Date Type Department Care Team (Late st Contact Info) Description 04/04/2016 Scanned Document [facility] Health Information Management [address] [place] [address] External, Provider Social History Tobacco Use Types [...] Office Visit [facility] at [address] [place] [address] Ronald Mills MD [address] [place] [phone] documented as of this encounter Procedures Procedure Name Priority Date/Time Associated Diagnosis Comments LAB SCAN Routine 04/04/2016 documented in this encounter Results * Lab Scan (04/04/2016) Blood specimen (specimen) us Provider External LAB BLOOD ORDERABLES Final Res ult [facility] documented in this encounter Visit Diagnoses Not on filedocumented in this encounter Additional Health Concerns Infection Onset Date Last Indicated Resolved Time COVID-19 03/05/2022 03/05/2022 03/15/2022 7:18 PM EDT documented as of this encounter Care Teams Dedenter Relationship Specialty Start Date End Date Caitlyn Bowie MD 3400 [facility] 1 [place] [address] PCP - General Internal Medicine 05/06/21 Henry Kelly MD Pulmonary Department 175 [facility], [address] [place] [address] Physician Pulmonary Disease 09/06/17 06/22/20 documented as of this encounter
--- OUTSIDE RECORDS SUMMARY | 2024-10-30 11:14 | XMS_ITS | Clinical Summary ---
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
--- OUTSIDE RECORDS SUMMARY | 2024-10-30 11:14 | XMS_ITS ---
Author Organization [facility] Address [address] [address] Care Team Providers Care Dishwasher Busser Name Role Phone EVELIN RAMSAY Primary Care Provider Yenny Hou Unavailable [phone] REASON FOR VISIT [facility] ifect disease dept Encounters Encounter Location Date Provider Diagnosis [facility] [address] [address] 06/11/2024 Yenny Elizalde Plan Of Treatment No Information Progress Notes * ONOFRE WATSON:1945 (79 yo F)Acc No.[id number]:06/11/2024 Patient:?CINDA WATSON :1945???Age:79 Y???Sex:Female Address:[address] [place] [address], [address] * true * Date:? Generated for Arely paige/Sebastian/eTransmitting on:?10/30/2024 11:14 AM EDT
--- OUTSIDE RECORDS SUMMARY | 2024-10-30 11:14 | XMS_ITS | Encounter Summary ---
Author Organization [facility] Address [address] [place] [address] Care Team Providers Care Lab Tester Name Role Phone Caitlyn Bowie MD Primary Care Provider +1- [phone] Encounter Details Date Type Department Care Team (Late st Contact Info) Description 12/16/2016 Scanned Document [facility] Health Information Management [address] [place] [address] External, Provider Social History Tobacco Use Types [...] Office Visit [facility] [address] - [address] [place] [address] Ronald Mills MD [address] [place] [phone] documented as of this encounter Procedures [...] Bowie MD 3400 [facility] 1 [place] [address] PCP - General Internal Medicine 05/06/21 Henry Kelly MD Pulmonary Department 175 [facility], [address] [place] [address] Physician Pulmonary Disease 09/06/17 06/22/20 documented as of this encounter
--- OUTSIDE RECORDS SUMMARY | 2024-10-30 11:14 | XMS_ITS | Clinical Summary ---
Author Organization [facility] Address [address] [address] Phone Care Team Providers Care Examination Proctor Name Role Phone Caitlyn Bowie MD Primary Care Provider +1- [phone] Encounters Date Type Department Care Team Description 10/10/2024 Documentation Only [facility] [address] [place] [address] Ron Taylor MA 10/01/2024 Documentation Only [facility] [address] [place] [address] Ron Taylor MA 09/25/2024 Telephone [facility] [address] [place] [address] Ron Taylor MA from Last [...] Visit [facility] [address] [place] [address] Rubén Ashraf MD [address] [place] [address] [place] [phone] Health Maintenance Due Date Last Done Comments Influenza Vaccine (Season Ended) 2025 04/27/2020, 04/22/2019, 04/18/2016 Pneumococcal Vaccine: 50+ Years Completed 08/31/2021, 03/25/2016, 09/17/2015, Additional history exists Hepatitis B Vaccine Aged Out No longe r eligible based on patient's age to complete this topic Insurance Medicare [facility] Care Teams Examination Proctor Relationship Specialty Start Date End Date Caitlyn Bowie MD [facility] [place], [place] PCP - General Internal Medicine 09/24/24
--- OUTSIDE RECORDS SUMMARY | 2024-10-30 11:14 | XMS_ITS | Encounter Summary ---
Author Organization [facility] Address [address] [place] [address] Phone Care Team Providers Care Newspaper Deliverer Name Role Phone Caitlyn Bowie MD Primary Care Provider +1- [phone] Encounter Details Date Type Department Care Team (Late st Contact Info) Description 10/01/2024 Documentation Only [facility] [address] [place] [address] [place], [place] [address] [place] [address] Social History Tobacco Use Types [...] Visit [facility] [address] [place] [address] Rubén Ashraf MD [address] [facility] [place] [address] documented as of this encounter Visit Diagnoses Not on filedocumented in this encounter Care Teams Newspaper Deliverer Relationship Specialty Start Date End Date Caitlyn Bowie MD [address] [place], [place] PCP - General Internal Medicine 09/24/24 documented as of this encounter
--- OUTSIDE RECORDS SUMMARY | 2024-10-30 11:14 | XMS_ITS | Encounter Summary ---
Author Organization [facility] Address [address] [place] [address] Care Team Providers Care Internal Medicine Nurse Practitioner Name Role Phone Caitlyn Bowie MD Primary Care Provider +1- [phone] Encounter Details Date Type Department Care Team (Late st Contact Info) Description 09/15/2024 Scanned Document INTERFACE DEFAULT [address] [place] [address] System, Provider Not In Social History Tobacco [...] [facility] [address] - [address] [place] [address] Ronald Mills MD [address] [place] [phone] documented as of this encounter Procedures [...] as of this encounter Care Teams Internal Medicine Nurse Practitioner Relationship Specialty Start Date End Date Caitlyn Bowie MD [address] [address] PCP - General Internal Medicine 05/06/21 documented as of this encounter
--- OUTSIDE RECORDS SUMMARY | 2024-10-30 11:14 | XMS_ITS | Encounter Summary ---
Author Organization [facility] Address [address] [place] [address] Care Team Providers Care Director Underwriter Sales Name Role Phone Caitlyn Bowie MD Primary Care Provider +1- [phone] Encounter Details Date Type Department Care Team (Late Contact Info) Description 01/09/2019 Scanned Document [facility] Health Information Management [address] [place] [address] External, Provider Social History Tobacco Use Types [...] Office Visit [facility] [address] - [address] [place] [address] Ronald Mills MD [address] [place] [phone] documented as of this encounter Procedures [...] as of this encounter Care Teams Director Underwriter Sales Relationship Specialty Start Date End Date Caitlyn Bowie MD 3400 [facility] 1 [place] [address] PCP - General Internal Medicine 05/06/21 Henry Kelly MD Pulmonary Department 175 [facility], [address] [place] [address] Physician Pulmonary Disease 09/06/17 06/22/20 documented as of this encounter
--- OUTSIDE RECORDS SUMMARY | 2024-10-30 11:14 | XMS_ITS | Encounter Summary ---
Author Organization [facility] Address [address] [place] [address] Care Team Providers Care Cashier And Waiter/Waitress Name Role Phone Caitlyn Bowie MD Primary Care Provider +1- [phone] Encounter Details Date Type Department Care Team (Late st Contact Info) Description 06/17/2016 Scanned Document [facility] Health Information Management [address] [place] [address] External, Provider Social History Tobacco Use Types [...] Office Visit [facility] [address] - [address] [place] [address] Ronald Mills MD [address] [place] [phone] documented as of this encounter Visit Diagnoses Not on filedocumented in this encounter Additional Health Concerns Infection Onset Date Last Indicated Resolved Time COVID-19 03/05/2022 03/05/2022 03/15/2022 7:18 PM EDT documented as of this encounter Care Teams Cashier And Waiter/Waitress Relationship Specialty Start Date End Date Caitlyn Bowie MD 3400 [facility] 1 [place] [address] PCP - General Internal Medicine 05/06/21 Henry Kelly MD Pulmonary Department 175 [facility], [address] [place] [address] Physician Pulmonary Disease 09/06/17 06/22/20 documented as of this encounter
--- OUTSIDE RECORDS SUMMARY | 2024-10-30 11:14 | XMS_ITS | Encounter Summary ---
Author Organization [facility] Address [address] [place] [address] Care Team Providers Care Hand Brim Ironer Name Role Phone Caitlyn Bowie MD Primary Care Provider +1- [phone] Encounter Details Date Type Department Care Team (Late st Contact Info) Description 09/09/2024 Scanned Document INTERFACE DEFAULT [address] [place] [address] System, Provider Not In Social History Tobacco [...] [facility] Visit [facility] [address] - [address] [place] [address] Ronald Mills MD [address] [place] [phone] documented as of this encounter Procedures [...] as of this encounter Care Teams Hand Brim Ironer Relationship Specialty Start Date End Date Caitlyn Bowie MD [address] [address] PCP - General Internal Medicine 05/06/21 documented as of this encounter
--- OUTSIDE RECORDS SUMMARY | 2024-10-30 11:14 | XMS_ITS | Encounter Summary ---
Author Organization [facility] Address [address] [place] [address] Care Team Providers Care Artisan Plasterer Name Role Phone Caitlyn Bowie MD Primary Care Provider +1- [phone] Encounter Details Date Type Department Care Team (Late st Contact Info) Description 04/08/2024 Scanned Document INTERFACE DEFAULT [address] [place] [address] System, Provider Not In Social History Tobacco [...] [facility] Visit [facility] [address] - [address] [place] [address] Ronald Mills MD [address] [place] [phone] documented as of this encounter Procedures [...] documented as of this encounter Care Teams Artisan Plasterer Relationship Specialty Start Date End Date Caitlyn Bowie MD [address] [address] PCP - General Internal Medicine 05/06/21 documented as of this encounter
--- OUTSIDE RECORDS SUMMARY | 2024-10-30 11:14 | XMS_ITS | Encounter Summary ---
Author Organization [facility] Address [address] [place] [address] Care Team Providers Care Citizenship Teacher Name Role Phone Caitlyn Bowie MD Primary Care Provider +1- [phone] Encounter Details Date Type Department Care Team (Late st Contact Info) Description 04/19/2024 Scanned Document INTERFACE DEFAULT [address] [place] [address] System, Provider Not In Social History Tobacco [...] Office Visit [facility] [address] - [address] [place] [address] Ronald Mills MD [address] [place] [phone] documented as of this encounter Procedures [...] documented as of this encounter Care Teams Citizenship Teacher Relationship Specialty Start Date End Date Caitlyn Bowie MD [address] [address] PCP - General Internal Medicine 05/06/21 documented as of this encounter
--- OUTSIDE RECORDS SUMMARY | 2024-10-30 11:14 | XMS_ITS | Encounter Summary ---
Author Organization [facility] Address [address] [place] [address] Care Team Providers Care Telephone Installer Name Role Phone Caitlyn Bowie MD Primary Care Provider +1- [phone] Encounter Details Date Type Department Care Team (Late st Contact Info) Description 02/08/2016 Scanned Document [facility] Health Information Management [address] [place] [address] External, Provider Social History Tobacco Use Types [...] Office Visit [facility] [address] - [address] [place] [address] Ronald Mills MD [address] [place] [phone] documented as of this encounter Visit Diagnoses Not on filedocumented in this encounter Additional Health Concerns Infection Onset Date Last Indicated Resolved Time COVID-19 03/05/2022 03/05/2022 03/15/2022 7:18 PM EDT documented as of this encounter Care Teams Telephone Installer Relationship Specialty Start Date End Date Caitlyn Bowie MD 3400 [facility] 1 [place] [address] PCP - General Internal Medicine 05/06/21 Henry Kelly MD Pulmonary Department 175 [facility], [address] [place] [address] Physician Pulmonary Disease 09/06/17 06/22/20 documented as of this encounter
--- OUTSIDE RECORDS SUMMARY | 2024-10-30 11:14 | XMS_ITS | Encounter Summary ---
Author Organization [facility] Address [address] [place] [address] Care Team Providers Care Substation Designer Name Role Phone Caitlyn Bowie MD Primary Care Provider +1- [phone] Encounter Details Date Type Department Care Team (Late st Contact Info) Description 01/08/2019 Scanned Document [facility] Health Information Management [address] [place] [address] External, Provider Social History Tobacco Use Types [...] Office Visit [facility] [address] - [address] [place] [address] Ronald Mills MD [address] [place] [phone] documented as of this encounter Procedures [...] as of this encounter Care Teams Substation Designer Relationship Specialty Start Date End Date Caitlyn Bowie MD 3400 [facility] Max 1 [place] [address] PCP - General Internal Medicine 05/06/21 Henry Kelly MD Pulmonary Department 175 [facility], [address] [place] [address] Physician Pulmonary Disease 09/06/17 06/22/20 documented as of this encounter
--- OUTSIDE RECORDS SUMMARY | 2024-10-30 11:14 | XMS_ITS | Encounter Summary ---
Author Organization [facility] Address [address] [place] [address] Care Team Providers Care Bingo Floater Name Role Phone Caitlyn Bowie MD Primary Care Provider +1- [phone] Encounter Details Date Type Department Care Team (Late Contact Info) Description 12/28/2018 Scanned Document [facility] Health Information Management [address] [place] [address] External, Provider Social History Tobacco Use Types [...] Office Visit [facility] [address] - [address] [place] [address] Ronald Mills MD [address] [place] [phone] documented as of this encounter Procedures [...] as of this encounter Care Teams Bingo Floater Relationship Specialty Start Date End Date Caitlyn Bowie MD 3400 [facility] Max 1 [place] [address] PCP - General Internal Medicine 05/06/21 Henry Kelly MD Pulmonary Department 175 [facility], [address] [place] [address] Physician Pulmonary Disease 09/06/17 06/22/20 documented as of this encounter
--- OUTSIDE RECORDS SUMMARY | 2024-10-30 11:14 | XMS_ITS | Encounter Summary ---
Author Organization [facility] Address [address] [place] [address] Care Team Providers Care Tail Puller Name Role Phone Caitlyn Bowie MD Primary Care Provider +1- [phone] Encounter Details Date Type Department Care Team (Late Contact Info) Description 12/27/2018 Scanned Document [facility] Health Information Management [address] [place] [address] External, Provider Social History Tobacco Use Types [...] Office Visit [facility] at [address] - [address] [place] [address] Ronald Mills MD [address] [place] [phone] documented as of this encounter Procedures [...] as of this encounter Care Teams Tail Puller Relationship Specialty Start Date End Date Caitlyn Bowie MD 3400 [facility] 1 [place] [address] PCP - General Internal Medicine 05/06/21 Henry Kelly MD Pulmonary Department 175 [facility], [address] [place] [address] Physician Pulmonary Disease 09/06/17 06/22/20 documented as of this encounter
--- OUTSIDE RECORDS SUMMARY | 2024-10-30 11:15 | XMS_ITS | Encounter Summary ---
Author Organization [facility] Address [address] [place] [address] Care Team Providers Care Motel Front Desk Clerk Name Role Phone Caitlyn Bowie MD Primary Care Provider +1- [phone] Reason for Visit * Reason Onset Date Comments Other 10/25/2024 Triage 10/25/2024 Encounter Details Date Type Department Care Team (Late st Contact Info) Description 10/25/2024 Telephone [facility] [address] [facility] [address] [place], [place] [address] Ronald Mills MD [address] [place] [phone] Other; Triage Social History Tobacco Use Types Packs/Day [...] encounter Miscellaneous Notes * Telephone Encounter - Darby Ibrahim - 10/25/2024 10:21 AM EDT Patient calling-- states she received a call from [employer] [facility] consultant physician the other night stating her potassium was very low and to recheck potassium again in a few days. She states she reached out to her Technical Service Engineer as suggested, however, she states they have not returned her call back and its been 2 days. She is concerned as she does not have an order to recheck. She states she lived in [place] and will need orders faxed to [facility] [phone] Please call patient to update. documented in this encounter Plan of Treatment Upcoming Encounters Date Type Department Care Team (Late st Contact Info) Description 10/31/2024 1:00 PM EDT Office Visit [facility] [address] [place] [address] Ronald Mills MD [address] [facility] [address]1 [place] [address] documented as of this encounter Visit Diagnoses Not on filedocumented in this encounter Additional Health Concerns Assessment Noted Time PHQ-9 Depression Total Score: 2 11/07/19 19 2:06 PM EDT documented as of this encounter Care Teams Motel Front Desk Clerk Relationship Specialty Start Date End Date Caitlyn Bowie MD [address] [address] PCP - General Internal Medicine 05/06/21 documented as of this encounter
--- OUTSIDE RECORDS SUMMARY | 2024-10-30 11:15 | XMS_ITS | Encounter Summary ---
Author Organization [facility] Address [address] [place] [address] Care Team Providers Care Pig Machine Crane Operator Name Role Phone Caitlyn Bowie MD Primary Care Provider +1- [phone] Reason for Referral * Imaging (Routine) - Closed Specialty Diagnoses / Procedures Referred By Contac t Referred To Contact Procedures NM Lung Ventilation Perfusion ([facility]) External, Provider Referral ID Status Reason Start Date Expiration Date Visits Re quested Visits Authorized [id number] Closed 08/22/2016 08/22/2017 4 4 Encounter Details Date Type Department Care Team (Late st Contact Info) Description 08/22/2016 Scanned Document [facility] On[facility] Program at [facility] 35 [facility] [place] [address] External, Provider Social History Tobacco Use Types [...] PM EDT Office Visit Hematology Program at [facility] 20 [facility] - [address] [place] [address] Ronald Mills MD [address] [place] [address] documented as of this encounter Procedures Procedure Name Priority Date/Time Associated Diagnosis Comments XRAY RESULT SCAN Routine 07/27/2016 CT RESULT SCAN Routine 07/27/2016 CT RESULT SCAN Routine 07/27/2016 CARDIAC EKG RESULT SCAN Routine 07/27/2016 LAB SCAN Routine 07/27/2016 NM LUNG VENTILATION PERFUSIO N ([facility]) Routine 07/27/2016 documented in this encounter Results * Xray Result Scan (07/27/2016) us Provider External IMG SCAN REPORTS Final Result Performing Organization Address [facility] Co de Phone Number [facility] * CT Result Scan (07/27/2016) us Provider External IMG SCAN REPORTS Final Result Performing Organization Address [facility] Co de Phone Number [facility] * Cardiac EKG Result Scan (07/27/2016) us Provider External CV CARDIAC REPORT (CVR) Final Result Performing Organization Address [facility] Co de Phone Number [facility] [place], [place], [facility] * CT Result Scan (07/27/2016) us Provider External IMG SCAN REPORTS Final Result Performing Organization Address [facility] Co de Phone Number [facility] * Lab Scan (07/27/2016) Blood specimen (specimen) us Provider External LAB BLOOD ORDERABLES Final Res ult Performing Organization Address [facility] Co de Phone Number [place], [place], [place] * NM Lung Ventilation Perfusion ([facility]) (07/27/2016) Anatomical Region Laterality Modality Chest, Lung Nuclear Medicine us Provider External IMG NM ORDERABLES Final Result documented in this encounter Visit Diagnoses Not on filedocumented in this encounter Additional Health Concerns Infection Onset Date Last Indicated Resolved Time COVID-19 03/05/2022 03/05/2022 03/15/2022 7:18 PM EDT documented as of this encounter Care Teams Pig Machine Crane Operator Relationship Specialty Start Date End Date Caitlyn Bowie MD 3400 [facility] 1 [place] [address] PCP - General Internal Medicine 05/06/21 Henry Kelly MD Pulmonary Department 175 [facility], [address] [place] [address] Physician Pulmonary Disease 09/06/17 06/22/20 documented as of this encounter
--- OUTSIDE RECORDS SUMMARY | 2024-10-30 11:15 | XMS_ITS | Encounter Summary ---
Author Organization [facility] and [facility] Address [address] [place] [address] Care Team Providers Care Reactor Fueling Supervisor Name Role Phone Caitlyn Bowie MD Primary Care Provider +1- [phone] Encounter Details Date Type Department Care Team (Late st Contact Info) Description 10/10/2016 Scanned Document [facility] Health Information Management [address] [place] [address] External, Provider Social History Tobacco Use Types [...] [facility] Visit [facility] at [address] [place] [address] Ronald Mills MD [address] [place] [phone] documented as of this encounter Visit Diagnoses Not on filedocumented in this encounter Additional Health Concerns Infection Onset Date Last Indicated Resolved Time COVID-19 03/05/2022 03/05/2022 03/15/2022 7:18 PM EDT documented as of this encounter Care Teams Reactor Fueling Supervisor Relationship Specialty Start Date End Date Caitlyn Bowie MD 3400 [facility] 1 [place] [address] PCP - General Internal Medicine 05/06/21 Henry Kelly MD Pulmonary Department 175 [facility], [address] [place] [address] Physician Pulmonary Disease 09/06/17 06/22/20 documented as of this encounter
--- OUTSIDE RECORDS SUMMARY | 2024-10-30 11:15 | XMS_ITS | Encounter Summary ---
Author Organization [facility] and [facility] Address [address] [place] [address] Care Team Providers Care Metal Grinder Name Role Phone Caitlyn Bowie MD Primary Care Provider +1- [phone] Encounter Details Date Type Department Care Team (Late st Contact Info) Description 12/14/2016 Scanned Document [facility] Health Information Management [address] [place] [address] External, Provider Social History Tobacco Use Types [...] Office Visit [facility] at [address] - [address] [place] [address] Ronald Mills MD [address] [place] [phone] documented as of this encounter Visit Diagnoses Not on filedocumented in this encounter Additional Health Concerns Infection Onset Date Last Indicated Resolved Time COVID-19 03/05/2022 03/05/2022 03/15/2022 7:18 PM EDT documented as of this encounter Care Teams Metal Grinder Relationship Specialty Start Date End Date Caitlyn Bowie MD 3400 [facility] 1 [place] [address] PCP - General Internal Medicine 05/06/21 Henry Kelly MD Pulmonary Department 175 [facility], [address] [place] [address] Physician Pulmonary Disease 09/06/17 06/22/20 documented as of this encounter
--- OUTSIDE RECORDS SUMMARY | 2024-10-30 11:15 | XMS_ITS | Encounter Summary ---
Author Organization [facility] and [facility] Address [address] [place] [address] Care Team Providers Care Landscape Architect Name Role Phone Caitlyn Bowie MD Primary Care Provider +1- [phone] Encounter Details Date Type Department Care Team (Late st Contact Info) Description 12/14/2016 Scanned Document [facility] Health Information Management [address] [place] [address] External, Provider Social History Tobacco Use Types [...] Office Visit [facility] at [address] [place] [address] Ronald Mills MD [address] [place] [phone] documented as of this encounter Procedures [...] documented as of this encounter Care Teams Landscape Architect Relationship Specialty Start Date End Date Caitlyn Bowie MD 3400 [facility] 1 [place] [address] PCP - General Internal Medicine 05/06/21 Henry Kelly MD Pulmonary Department 175 [facility], [address] [place] [address] Physician Pulmonary Disease 09/06/17 06/22/20 documented as of this encounter
--- OUTSIDE RECORDS SUMMARY | 2024-10-30 11:15 | XMS_ITS | Encounter Summary ---
Author Organization [facility] and [facility] Address [address] [place] [address] Care Team Providers Care Managed Care Coordinator Name Role Phone Caitlyn Bowie MD Primary Care Provider +1- [phone] Encounter Details Date Type Department Care Team (Late st Contact Info) Description 10/23/2024 Scanned Document INTERFACE DEFAULT [address] [place] [address] System, Provider Not In Social History Tobacco [...] Office Visit [facility] at [address] [place] [address] Ronald Mills MD [address] [place] [phone] documented as of this encounter Procedures Procedure Name Priority Date/Time Associated Diagnosis Comments LAB SCAN 10/23/2024 12:00 AM EDT LAB SCAN 10/23/2024 12:00 AM EDT LAB SCAN 10/23/2024 12:00 AM EDT LAB SCAN 10/23/2024 12:00 AM EDT documented in this encounter Results * Lab Scan (10/23/2024 12:00 AM EDT) us Provider Not In System LAB BLOOD ORDERABLES Carmina l Result * Lab Scan (10/23/2024 12:00 AM EDT) us Provider Not In System LAB BLOOD ORDERABLES Carmina l Result * Lab Scan (10/23/2024 12:00 AM EDT) us Provider Not In System LAB BLOOD ORDERABLES Carmina l Result * Lab Scan (10/23/2024 12:00 AM EDT) us Provider Not In System LAB BLOOD ORDERABLES Carmina l Result documented in this encounter Visit Diagnoses Not on filedocumented in this encounter Additional Health Concerns Assessment Noted Time PHQ-9 Depression Total Score: 2 11/07/19 19 2:06 PM EDT documented as of this encounter Care Teams Managed Care Coordinator Relationship Specialty Start Date End Date Caitlyn Bowie MD [address] [address] PCP - General Internal Medicine 05/06/21 documented as of this encounter
--- OUTSIDE RECORDS SUMMARY | 2024-10-30 11:15 | XMS_ITS | Encounter Summary ---
Author Organization [facility] Address [address] [place] [address] Care Team Providers Care School Principal Name Role Phone Caitlyn Bowie MD Primary Care Provider +1- [phone] Encounter Details Date Type Department Care Team (Late st Contact Info) Description 12/16/2016 Scanned Document [facility] Health Information Management [address] [place] [address] External, Provider Social History Tobacco Use Types [...] [facility] Visit [facility] at [address] [place] [address] Ronald Mills MD [address] [place] [phone] documented as of this encounter Procedures [...] as of this encounter Care Teams School Principal Relationship Specialty Start Date End Date Caitlyn Bowie MD 3400 [facility] 1 [place] [address] PCP - General Internal Medicine 05/06/21 Henry Kelly MD Pulmonary Department [address] [place] [address], [address] [place] [address] Physician Pulmonary Disease 09/06/17 06/22/20 documented as of this encounter
--- OUTSIDE RECORDS SUMMARY | 2024-10-30 11:15 | XMS_ITS | Encounter Summary ---
Author Organization [facility] and [facility] Address [address] [place] [address] Care Team Providers Care Metalizer Field Operation Name Role Phone Caitlyn oBwie MD Primary Care Provider +1- [phone] Encounter Details Date Type Department Care Team (Late st Contact Info) Description 07/27/2016 Scanned Document [facility] at [address] [place] [address] Suzy Kong MD [address] [place] [phone] Social History Tobacco Use Types Packs/Day [...] EDT Office Visit Hematology Program at [address] [place], [place] [address] Ronald Mills MD [address] [phone] documented as of this encounter Visit Diagnoses Not on filedocumented in this encounter Additional Health Concerns Infection Onset Date Last Indicated Resolved Time COVID-19 03/05/2022 03/05/2022 03/15/2022 7:18 PM EDT documented as of this encounter Care Teams Metalizer Field Operation Relationship Specialty Start Date End Date Caitlyn Bowie MD 3400 [facility] Max 1 [place] [address] PCP - General Internal Medicine 05/06/21 Henry Kelly MD Pulmonary Department 175 [facility], [address] [place] [address] Physician Pulmonary Disease 09/06/17 06/22/20 documented as of this encounter
--- OUTSIDE RECORDS SUMMARY | 2024-10-30 11:15 | XMS_ITS | Encounter Summary ---
Author Organization [facility] and [facility] Address [address] [place] [address] Care Team Providers Care Instrumentation Manager Name Role Phone Caitlyn Bowie MD Primary Care Provider +1- [phone] Encounter Details Date Type Department Care Team (Late st Contact Info) Description 07/27/2016 Scanned Document [facility] at [address] [place] [address] Suzy Kong MD [address] [place] [phone] Social History Tobacco Use Types Packs/Day [...] EDT Office Visit Hematology Program at [address] - [address] [place], [place] [address] Ronald Mills MD [address] [phone] documented as of this encounter Visit Diagnoses Not on filedocumented in this encounter Additional Health Concerns Infection Onset Date Last Indicated Resolved Time COVID-19 03/05/2022 03/05/2022 03/15/2022 7:18 PM EDT documented as of this encounter Care Teams Instrumentation Manager Relationship Specialty Start Date End Date Caitlyn Bowie MD 3400 [facility] Max 1 [place] [address] PCP - General Internal Medicine 05/06/21 Henry Kelly MD Pulmonary Department 175 [facility], [address] [place] [address] Physician Pulmonary Disease 09/06/17 06/22/20 documented as of this encounter
--- OUTSIDE RECORDS SUMMARY | 2024-10-30 11:15 | XMS_ITS | Encounter Summary ---
Author Organization [facility] and [facility] Address [address] [place] [address] Care Team Providers Care Grocery Clerk Name Role Phone Caitlyn Bowie MD Primary Care Provider +1- [phone] Encounter Details Date Type Department Care Team (Late st Contact Info) Description 06/17/2016 Scanned Document [facility] Health Information Management [address] [place] [address] External, Provider Social History Tobacco Use Types [...] Office Visit [facility] at [address] - [address] [place] [address] Ronald Mills MD [address] [place] [phone] documented as of this encounter Visit Diagnoses Not on filedocumented in this encounter Additional Health Concerns Infection Onset Date Last Indicated Resolved Time COVID-19 03/05/2022 03/05/2022 03/15/2022 7:18 PM EDT documented as of this encounter Care Teams Grocery Clerk Relationship Specialty Start Date End Date Caitlyn Bowie MD 3400 [facility] 1 [place] [address] PCP - General Internal Medicine 05/06/21 Henry Kelly MD Pulmonary Department 175 [facility], [address] [place] [address] Physician Pulmonary Disease 09/06/17 06/22/20 documented as of this encounter
--- OUTSIDE RECORDS SUMMARY | 2024-10-30 11:15 | XMS_ITS | Encounter Summary ---
Author Organization [facility] and [facility] Address [address] [place] [address] Care Team Providers Care Register Of Wills Name Role Phone Caitlyn Bowie MD Primary Care Provider +1- [phone] Encounter Details Date Type Department Care Team (Late st Contact Info) Description 10/25/2024 Orders Only Cancer Center at [address] [place] [address] Taya Nuno, AVELINO Hypokalemia (Primary Dx) Social History Tobacco Use Types [...] EDT Office Visit Hematology Program at [address] - [address] [place] [address] Ronald Mills MD [address] [place] [address] [address] [place] [address] Scheduled Orders Name Type Priority Associated Diagnoses Orde r Schedule Basic metabolic panel Lab - Test Panel Order Routine Hypokalemia Expected: 10/25/2024, Expires: 12/25/2025 documented as of this encounter Visit Diagnoses Diagnosis Hypokalemia- Primary Hypopotassemia documented in this encounter Additional Health Concerns Assessment Noted Time PHQ-9 Depression Total Score: 2 11/07/19 19 2:06 PM EDT documented as of this encounter Care Teams Register Of Wills Relationship Specialty Start Date End Date Caitlyn Bowie MD [address] [address] PCP - General Internal Medicine 05/06/21 documented as of this encounter
--- OUTSIDE RECORDS SUMMARY | 2024-10-30 11:15 | XMS_ITS | Encounter Summary ---
Author Organization [facility] and [facility] Address [address] [place] [address] Care Team Providers Care Armor Reconnaissance Vehicle Crewman Name Role Phone Caitlyn Bowie MD Primary Care Provider +1- [phone] Encounter Details Date Type Department Care Team (Late st Contact Info) Description 07/08/2016 Scanned Document [facility] Health Information Management [address] [place] [address] External, Provider Social History Tobacco Use Types [...] Office Visit [facility] at [address] [place] [address] Ronald Mills MD [address] [place] [phone] documented as of this encounter Procedures Procedure Name Priority Date/Time Associated Diagnosis Comments LAB SCAN Routine 07/08/2016 documented in this encounter Results * Lab Scan (07/08/2016) Blood specimen (specimen) us Provider External LAB BLOOD ORDERABLES Final Res ult [facility] documented in this encounter Visit Diagnoses Not on filedocumented in this encounter Additional Health Concerns Infection Onset Date Last Indicated Resolved Time COVID-19 03/05/2022 03/05/2022 03/15/2022 7:18 PM EDT documented as of this encounter Care Teams Armor Reconnaissance Vehicle Crewman Relationship Specialty Start Date End Date Caitlyn Bowie MD 3400 [facility] 1 [place] [address] PCP - General Internal Medicine 05/06/21 Henry Kelly MD Pulmonary Department 175 [facility], [address] [place] [address] Physician Pulmonary Disease 09/06/17 06/22/20 documented as of this encounter
--- OUTSIDE RECORDS SUMMARY | 2024-10-30 11:15 | XMS_ITS | Encounter Summary ---
Author Organization [facility] and [facility] Address [address] [place] [address] Care Team Providers Care Accountant Name Role Phone Caitlyn Bowie MD Primary Care Provider +1- [phone] Encounter Details Date Type Department Care Team (Late st Contact Info) Description 07/27/2016 Scanned Document [facility] Oncology Program at [address] [place] [address] Suzy Kong MD [address] [place] [phone] Social History Tobacco Use Types Packs/Day [...] EDT Office Visit Hematology Program at [address] - [address] [place], [place] [address] Ronald Mills MD [address] [phone] documented as of this encounter Visit Diagnoses Not on filedocumented in this encounter Additional Health Concerns Infection Onset Date Last Indicated Resolved Time COVID-19 03/05/2022 03/05/2022 03/15/2022 7:18 PM EDT documented as of this encounter Care Teams Accountant Relationship Specialty Start Date End Date Caitlyn Bowie MD 3400 [facility] Max 1 [place] [address] PCP - General Internal Medicine 05/06/21 Henry Kelly MD Pulmonary Department 175 [facility], [address] [place] [address] Physician Pulmonary Disease 09/06/17 06/22/20 documented as of this encounter
--- OUTSIDE RECORDS SUMMARY | 2024-10-30 11:15 | XMS_ITS | Encounter Summary ---
Author Organization [facility] Address [address] [place] [address] Care Team Providers Care Court Interpreter Name Role Phone Caitlyn Bowie MD Primary Care Provider +1- [phone] Encounter Details Date Type Department Care Team (Late st Contact Info) Description 06/17/2016 Scanned Document [facility] Health Information Management [address] [place] [address] External, Provider Social History Tobacco Use Types [...] Office Visit [facility] at [address] [place] [address] Ronald Mills MD [address] [place] [phone] documented as of this encounter Procedures Procedure Name Priority Date/Time Associated Diagnosis Comments XRAY RESULT SCAN Routine 06/17/2016 documented in this encounter Results * Xray Result Scan (06/17/2016) us Provider External IMG SCAN REPORTS Final Result Performing Organization Address City/State/[facility] Co de Phone Number [facility] [place], [place], [facility] documented in this encounter Visit Diagnoses Not on filedocumented in this encounter Additional Health Concerns Infection Onset Date Last Indicated Resolved Time COVID-19 03/05/2022 03/05/2022 03/15/2022 7:18 PM EDT documented as of this encounter Care Teams Court Interpreter Relationship Specialty Start Date End Date Caitlyn Bowie MD 3400 [facility] 1 [place] [address] PCP - General Internal Medicine 05/06/21 Henry Kelly MD Pulmonary Department 175 [facility], [address] [place] [address] Physician Pulmonary Disease 09/06/17 06/22/20 documented as of this encounter
== END ==
LOC: HO.CARD 09:49
PROVIDERS: PCP Internal Medicine; Visit Provider Internal Medicine Cardiovascular Disease
DX: I50.32 Chronic diastolic (congestive) heart failure (principal)
CPT/HCPCS: 93306

== ENCOUNTER → 2024-10-30 09:51 | Outpatient (BNV) | payer MEDICARE, SELFPAY | PROVIDERS: PCP Internal Medicine; Visit Provider Internal Medicine | DX: I50.32 Chronic diastolic (congestive) heart failure (principal); Z95.4 Presence of other heart-valve replacement; I27.20 Pulmonary hypertension, unspecified; I31.39 Other pericardial effusion (noninflammatory) | CPT/HCPCS: 93306 ==

== ENCOUNTER 2024-11-03 13:48 | Emergency (ER) | payer MEDICARE, SELFPAY ==
--- NOTE | ~2024-11-03 | CT_ITS ---
CLINICAL HISTORY: left sided abdominal pain --- Additional Notes or Special Instructions: ? Bowel obs truction. Allergy to IV contrast, gastrograffin, CT abdomen and pelvis without contrast Comparison: CT/SR - CT CHEST WO IV CON - 09/09/24 02:[address]/SR - CT ABDOMEN PELVIS WO IV CON - 02/01/24 13:41 EDT Findings: Chronic scarring in the lower lobes, left worse than right. Small left pleural effusion. Small pericardial effusion. The gallbladder and solid organs are within normal limits. No renal stones. Colonic diverticulosis with wall thickening and surrounding fat stranding in the sigmoid colon. No bowel obstruction, pneumatosis or pneumoperitoneum. Aortic atherosclerosis. No aneurysm. Hysterectomy. Urinary bladder is within normal limits. Chronic grade 1 anterolisthesis of L3 on L4. No acute osseous findings. IMPRESSION: 1. Sigmoid diverticulitis. No perforation or abscess. 2. Small left pleural effusion and small pericardial effusion. This document has been electronically signed by: Janna Rogers MD on 11/03/2024 16:14:30
[2024-11-03 13:56] VITALS: BP 120/78; BP 137/67; PULSE 86; PULSE 88; RESP 18; TEMP 36.9; O2SAT 100; O2SAT 98; BMI 22.4
--- NOTE | 2024-11-03 14:23 | ECG_ITS ---
Test Reason : PAIN Blood Pressure : */* mmHG Vent. Rate : 79 BPM Atrial Rate : 79 BPM P-R Int : 164 ms QRS Dur : 142 ms QT Int : 420 ms P-R-T Axes : 70 -55 67 degrees QTcB Int : 481 ms Normal sinus rhythm Right bundle branch block Left anterior fascicular block Bifascicular block Minimal voltage criteria for LVH, may be normal variant ( R in aVL ) Abnormal ECG When compared with ECG of 17-Oct-2024 15:45, No significant change was found Referred By: Mick Villegas Electronically Signed By: Luis Eduardo Cadet
--- OUTSIDE RECORDS SUMMARY | 2024-11-03 14:34 | XMS_ITS | Encounter Summary ---
Author Organization [facility] and [facility] Address [address] [place] [address] Care Team Providers Care Cooler Worker Name Role Phone Caitlyn Bowie MD Primary Care Provider +1- [phone] Encounter Details Date Type Department Care Team (Late st Contact Info) Description 05/14/2020 Documentation Hematology Program at [address] [address] Taya Nuno RN Social History Tobacco Use [...] Care Team (Late st Contact Info) Description 04/25/2025 4:00 PM EDT Telemedicine Cancer Center at [address] [place] [address] Ronald Mills MD [address] [place] [phone] documented as of this encounter Visit Diagnoses Not on filedocumented in this encounter Additional Health Concerns Infection Onset Date Last Indicated Resolved Time COVID-19 03/05/2022 03/05/2022 03/15/2022 7:18 PM EDT Assessment Noted Time PHQ-9 Depression Total Score: 2 11/07/19 19 2:06 PM EDT documented as of this encounter Care Teams Cooler Worker Relationship Specialty Start Date End Date Caitlyn Bowie MD 3400 [facility] Max 1 [place] [address] PCP - General Internal Medicine 05/06/21 Henry Kelly MD Pulmonary Department 175 [facility], [address] [place] [address] Physician Pulmonary Disease 09/06/17 06/22/20 documented as of this encounter
--- OUTSIDE RECORDS SUMMARY | 2024-11-03 14:34 | XMS_ITS | Encounter Summary ---
Author Organization [facility] and [facility] Address [address] [place] [address] Care Team Providers Care In House Cra Name Role Phone Caitlyn Bowie MD Primary Care Provider +1- [phone] Encounter Details Date Type Department Care Team (Late st Contact Info) Description 02/20/2017 Scanned Document [facility] Health Information Management [address] [place] [phone] External, Provider Social History Tobacco Use Types [...] 4:00 PM EDT Telemedicine Cancer Center at [facility] [address] [facility] [address] [place], [place] [phone] Ronald Mills MD 240 [facility] Max [address] [place] [address] documented as of this encounter [...] documented as of this encounter Care Teams In House Cra Relationship Specialty Start Date End Date Caitlyn Bowie MD 3400 [facility] 1 [place] [address] PCP - General Internal Medicine 05/06/21 Henry Kelly MD Pulmonary Department 175 [facility], [address] [place] [address] Physician Pulmonary Disease 09/06/17 06/22/20 documented as of this encounter
--- OUTSIDE RECORDS SUMMARY | 2024-11-03 14:34 | XMS_ITS | Encounter Summary ---
Author Organization [facility] and [facility] Address [address] [place] [address] Care Team Providers Care Gunsmith Apprentice Name Role Phone Caitlyn Bowie MD Primary Care Provider +1- [phone] Encounter Details Date Type Department Care Team (Late st Contact Info) Description 12/19/2016 Scanned Document [facility] Health Information Management [address] [place] [phone] External, Provider Social History Tobacco Use Types [...] 4:00 PM EDT Telemedicine Cancer Center at [facility] [address] [facility] [address] [place], [place] [phone] Ronald Mills MD 240 [facility] [address] [place] [address] documented as of this encounter [...] documented as of this encounter Care Teams Gunsmith Apprentice Relationship Specialty Start Date End Date Caitlyn Bowie MD [facility] 1 [place] [address] PCP - General Internal Medicine 05/06/21 Henry Kelly MD Pulmonary Department 175 [facility], [address] [place] [address] Physician Pulmonary Disease 09/06/17 06/22/20 documented as of this encounter
--- OUTSIDE RECORDS SUMMARY | 2024-11-03 14:34 | XMS_ITS | Encounter Summary ---
Author Organization [facility] and [facility] Address [address] [place] [address] Care Team Providers Care Voucher Examiner Name Role Phone Caitlyn Bowie MD Primary Care Provider +1- [phone] Encounter Details Date Type Department Care Team (Late st Contact Info) Description 02/20/2017 Scanned Document [facility] Health Information Management [address] [place] [address] External, Provider Social History Tobacco Use Types [...] 4:00 PM EDT Telemedicine [facility] at [facility] 240 [facility] Building [address] [place], [place] [phone] Ronald Mills MD 240 [facility] Max [address] [place] [address] documented as of this encounter [...] documented as of this encounter Care Teams Voucher Examiner Relationship Specialty Start Date End Date Caitlyn Bowie MD 3400 [facility] Max 1 [place] [address] PCP - General Internal Medicine 05/06/21 Henry Kelly MD Pulmonary Department 175 [facility], [address] [place] [address] Physician Pulmonary Disease 09/06/17 06/22/20 documented as of this encounter
--- OUTSIDE RECORDS SUMMARY | 2024-11-03 14:34 | XMS_ITS | Encounter Summary ---
Author Organization [facility] Address [address] [place] [phone] Care Team Providers Care Life Skills Specialist Name Role Phone Caitlyn Bowie MD Primary Care Provider +1- [phone] Encounter Details Date Type Department Care Team (Late st Contact Info) Description 02/02/2017 Scanned Document FORMERLY [facility], [facility] Health Information Management [address] [place] [phone] External, Provider Social History Tobacco Use Types [...] 4:00 PM EDT Telemedicine Cancer Center at [facility] [address] [facility] [address] [place], [place] [phone] Ronald Mills MD [address] [facility] [address] [place] [address] documented as of this encounter Visit Diagnoses Not on filedocumented in this encounter Additional Health Concerns Infection Onset Date Last Indicated Resolved Time COVID-19 03/05/2022 03/05/2022 03/15/2022 7:18 PM EDT documented as of this encounter Care Teams Life Skills Specialist Relationship Specialty Start Date End Date Caitlyn Bowie MD [address] [facility] 1 [place] [address] PCP - General Internal Medicine 05/06/21 Henry Kelly MD Pulmonary Department [address] [facility] [place] [address] Physician Pulmonary Disease 09/06/17 06/22/20 documented as of this encounter
--- OUTSIDE RECORDS SUMMARY | 2024-11-03 14:34 | XMS_ITS | Encounter Summary ---
Author Organization [facility] Address [address] [place] [address] Care Team Providers Care Digital Campaign Manager Name Role Phone Caitlyn Bowie MD Primary Care Provider +1- [phone] Encounter Details Date Type Department Care Team (Late Contact Info) Description 09/16/2020 Scanned Document FORMERLY [facility], [facility] Health Information Management [address] [place] [address] External, Provider Social History Tobacco Use Types [...] 4:00 PM EDT Telemedicine Cancer Center at [facility] [address] [facility] [address] [place], [place] [phone] Ronald Mills MD [address] [place] [address] [address] [place] [address] documented as of this encounter [...] as of this encounter Care Teams Digital Campaign Manager Relationship Specialty Start Date End Date Caitlyn Bowie MD [address] [address] PCP - General Internal Medicine 05/06/21 documented as of this encounter
--- OUTSIDE RECORDS SUMMARY | 2024-11-03 14:34 | XMS_ITS | Encounter Summary ---
Author Organization [facility] Address [address] [place] [phone] Care Team Providers Care Roll Bucker Name Role Phone Caitlyn Bowie MD Primary Care Provider +1- [phone] Encounter Details Date Type Department Care Team (Late st Contact Info) Description 09/17/2020 Scanned Document REPLACED BY [facility] Health Information Management [address] [place] [phone] External, Provider Social History Tobacco Use Types [...] 4:00 PM EDT Telemedicine Cancer Center at [facility] 240 [facility] Building [address] [place], [place] [phone] Ronald Mills MD [address] [place] [address] [address] [place] [address] documented as of this encounter [...] as of this encounter Care Teams Roll Bucker Relationship Specialty Start Date End Date Caitlyn Bowie MD [address] [address] PCP - General Internal Medicine 05/06/21 documented as of this encounter
--- OUTSIDE RECORDS SUMMARY | 2024-11-03 14:34 | XMS_ITS | Encounter Summary ---
Author Organization [facility] Address [address] [place] [phone] Care Team Providers Care Solid Fiber Paster Operator Name Role Phone Caitlyn Bowie MD Primary Care Provider +1- [phone] Encounter Details Date Type Department Care Team (Late st Contact Info) Description 10/31/2024 1:00 PM EDT [facility] at [address] [phone] Ronald Mills MD [address] [place] [phone] Hypokalemia (Primary Dx); VTE (venous thromboembolism); Antiphospholipid antibody syndrome (HC Code); Elevated homocysteine; Abnormal gamma globulin level; Pulmonary hypertension (HC Code) Social History Tobacco Use Types Packs/Day Years Used Date Smoking Tobacco: Never Smokeless Tobacco: Never Tobacco Cessation:Counseling Given: Not Answered Comments:2nd hand smoking Alcohol Use Standard Drinks/Week [...] Sign Reading Time Taken Comments Blood Pressure 116/66 10/31/2024 1:19 PM EDT Pulse 79 10/31/2024 1:19 PM EDT Temperature 36.8 ??C (98.2 ??F) 10/31/2024 1:19 PM ED T Respiratory Rate 20 10/31/2024 1:19 PM EDT Oxygen Saturation 98% 10/31/2024 1:19 PM EDT Inhaled Oxygen Concentration - - Weight 59.1 kg (130 lb 4.7 oz) 10/31/2024 1:19 P M EDT Height - - Body Mass Index 23.83 10/18/2024 11:05 AM EDT documented in this encounter Progress Notes * Ronald Mills MD - 10/31/2024 1:00 PM EDT Primary Hematology Note: Identification: 79 y.o. y.o. 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 Ms. Jovana Malik returns to Hematology clinic today for a follow-up visit. I last evaluated her on 04/30/24. For a comprehensive narrative of her prior history, please see my note dated 06/02/20. She feels awful all the time. She has not been able to eat much as she feels so crummy . A few months ago, she was in her local emergency department for shortness of breath and cough, thenafterwards, on 09/09/24, she saw her bridge repairer, Dr. Henry Kelly, in follow-up, who thought there was a pulmonary vascular component to her respiratory symptoms. In the past, she had tried sildenafil but did not tolerate it. Dr. Kelly wondered if she should try hydroxychloroquine, which he had raised before, and according to his note, the patient indicated that she was willing to try it- but today, she told me that she has not been tried hydroxychloroquine as she is hesitant about it. The day that she saw Dr. Kelly, she had a chest CT scan done that showed postsurgical changes in the left lung with associated volume loss, confluent atelectatic/fibrotic change in the left perihilar region, a [id number] left pleural effusion, mild scattered atelectatic/fibrotic changes in the right lung, cardiomegaly, and a small pericardial effusion (09/09/24). A couple weeks after that, she had a left lower extremity Doppler ultrasound that showed no deep vein thrombosis (09/27/24). About two weeks ago, she felt pain and pressure in her chest while driving and noticed that her heart rate was 112. She went to [facility], where her troponin-I levels were 14.5 ng/L and 20.9ng/L. A chest X-ray showed postsurgical changes in the left hemithorax with no definite superimposed acute process (10/17/24). She was of the understanding that these troponin-I levels were high although the notes that I saw from this suggested that these were normal. For three weeks, she has had a cough. There has not been hemoptysis. She has had not any hemoptysissince having her mitral valve clip-repaired in 2022. Her breathing is up and down . She on 2 L of oxygen by nasal cannula during the day and 2.5 L at night. On , her right foot was purple purple . She has not had any recent fever, drenching night sweats, pathologic weight loss, nausea, vomiting,or urinary problems. She has a lot of abdominal pain, gas, and reflux. She urinates a lot due to furosemide use. She used to have pneumonia a lot while on omeprazole, then stopped omeprazole about 2-3 years ago and has not really had much in the way of pneumonia since then. She remains on warfarin, with crazy INR values, e.g., 1.2, 1.4, 1.6, 1.7, 1.8, 2.2, from what sherecalled. There was a period recently where she had to test her INR twice a week because it was solow . She had some prolonged bleeding after bumping her left dorsal hand and sustaining a cut there recently, and she developed a lump in her left forearm after feeling something stabbed into it . She takes some type of iron supplement daily and folic acid daily. She is on prednisone 2.5 mg every other day. A couple of weeks ago, her blood chemistries showed hypokalemia, for which we recommended potassiumsupplementation. Her present medications as reviewed today are: Current Outpatient Medications on File Prior to Visit Medication Sig Dispense Refill albuterol (PROVENTIL HFA) 90 mcg/actuation HFA inhaler Inhale 2 puffs into the lungs every 4 (four)hours as needed. albuterol (PROVENTIL, VENTOLIN) 2.5 mg /3 mL (0.083 %) nebulizer solution Inhale 1 vial into the lungs every 4 (four) hours as needed.. azelastine HCl (AZELASTINE NASL) by Nasal route. cetirizine (ZYRTEC) 10 MG tablet Take 1 tablet (10 mg total) by mouth daily. diazepam (VALIUM) 5 MG tablet Take 0.5 tablets (2.5 mg total) by mouth nightly as needed for anxiety. docusate sodium (COLACE) 100 MG capsule Take 2 capsules (200 mg total) by mouth 2 (two) times daily. fluticasone propionate (FLONASE) 50 mcg/actuation nasal spray Use 1 spray in each nostril daily. fluticasone-salmeterol (ADVAIR HFA) 230-21 mcg/actuation inhaler Inhale 2 puffs into the lungs 2 (two) times daily. folic acid (FOLVITE) 1 mg tablet Take 1 tablet (1 mg total) by mouth daily. 100 tablet 3 furosemide (LASIX) 20 MG tablet Take 1 tablet (20 mg total) by mouth daily as needed.. (Patient taking differently: Take 4 tablets (80 mg total) by mouth 2 (two) times daily.) 30 tablet 5 guaifenesin (TUSSIN ORAL) Take by mouth. HARD TO ENTER MEDICATION 1 each. She takes some type of iron. meclizine (ANTIVERT) 25 MG tablet Take 1 tablet (25 mg total) by mouth 3 (three) times daily as needed. metoprolol succinate XL (TOPROL-XL) 25 mg 24 hr tablet Take 1 tablet (25 mg total) by mouth 2 (two)times daily with breakfast and dinner. Take with or immediately following a meal. 180 tablet 3 montelukast (SINGULAIR) 10 mg tablet Take 1 tablet (10 mg total) by mouth nightly. predniSONE (DELTASONE) 5 mg tablet Take 0.5 tablets (2.5 mg total) by mouth every other day. Take with food. rosuvastatin (CRESTOR) 10 mg tablet Take 1 tablet (10 mg total) by mouth Every Monday, Monday, and Monday. 40 tablet 3 SYNTHROID 25 mcg tablet Take 1 tablet by mouth 5 days a week and 2 tablets 2 days a week traZODone (DESYREL) 50 MG tablet take 1 to 2 tablets by mouth at bedtime 6 warfarin (COUMADIN) 2 MG tablet Take 1 tablet (2 mg total) by mouth Daily @1800. Monday, Monday,Monday and 3mg on Monday, Monday, ASCORBATE CALCIUM (VITAMIN C ORAL) Take 1,000 mg by mouth daily On occasion. augmented betamethasone dipropionate (DIPROLENE-AF) 0.05 % cream Apply topically 2 (two) times daily. To both legs (Patient not taking: Reported on 10/31/2024) 100 g 6 Bacillus coagulans (PROBIOTIC, B. COAGULANS, ORAL) Take 1 capsule by mouth daily cholecalciferol, vitamin D3, 125 mcg (5,000 unit) tablet Take 1 tablet (5,000 Units total) by mouthdaily. clindamycin (CLEOCIN) 150 MG capsule TAKE FOUR CAPSULES BY MOUTH ONE HOUR PRIOR TO APPOINTMENT 1 cyanocobalamin 1,000 mcg/mL injection vial Inject 1 mL (1,000 mcg total) into the muscle every 30 (thirty) days. Dose uncertain CYANOCOBALAMIN, VITAMIN B-12, ORAL Take by mouth. ELDERBERRY FRUIT ORAL Take by mouth. (Patient not taking: Reported on 10/31/2024) EPIPEN 2-KORI 0.3 mg/0.3 mL (1:1,000) AtIn 0.3 mg once as needed. (Patient not taking: Reported on 04/05/2022) ferrous gluconate (FERGON) 324 mg (38 mg iron) tablet Take 1 tablet (324 mg total) by mouth daily with breakfast. 90 tablet 2 iron polysaccharides (NIFEREX) 150 mg iron capsule Take 150 mg by mouth 2 (two) times daily. iron polysaccharides (NIFEREX) 150 mg iron capsule Take 1 capsule (150 mg total) by mouth daily. 30capsule 3 magnesium oxide 500 mg Cap Take 500 mg by mouth daily. (Patient not taking: Reported on 10/31/2024) MULTIVITAMIN ORAL Take by mouth. (Patient not taking: Reported on 10/31/2024) omeprazole (PRILOSEC) 40 MG capsule Take 1 capsule (40 mg total) by mouth daily. tacrolimus (PROTOPIC) 0.1 % ointment Apply topically 2 (two) times daily. 100 g 3 triamcinolone (KENALOG) 0.1 % ointment Apply topically 2 (two) times daily. 454 g 5 vitamin B complex (B COMPLEX ORAL) Take by mouth. warfarin (COUMADIN) 3 MG tablet Take 3 mg by mouth Daily @1800 Monday, Monday, and 2mg onMonday, Monday, Monday No current facility-administered medications on file prior to visit. On physical examination, her ECOG performance status is 0. In general, she is an alert, pleasant, conversant female in no acute distress. Extraocular muscles are intact. Mucous membranes are moist. There is a minor blush on the upper hard palate. There is no palpable cervical, supraclavicular, axillary, or epitrochlear lymphadenopathy. Cardiac examination demonstrates a regular rate and rhythm. Lungs are clear to auscultation bilaterally. Abdomen is soft, nontender, and nondistended, without palpable splenomegaly. Extremities are warm and well-perfused; there is minor left ankle swelling. Cranial nerves II-XII are intact bilaterally. Skin is warm on exam. Her most recent labs showed the following. Dated 10/23/24, her WBC was 11.2, hemoglobin 11.8, hematocrit 36.4, platelet count 226, MCV 101.4, RDW 13.5, and mean platelet volume 11.5, with a WBC differential of 82.9% neutrophils, 8.6% lymphocytes, 6.5% monocytes, 0.3% eosinophils, and 0.6% basophils. Dated 10/23/24, her INR was 1.5 and her D-dimer level 321 ng/mL. Dated 10/23/24, her BUN was 23, creatinine 0.83, potassium 2.9, ALT 29, AST 32, alkaline [id number], total bilirubin 0.4, albumin 3.9, and total protein 6.8. Dated 10/23/24, her iron was 101 mcg/dL, TIBC 296 mcg/dL, iron saturation 34%, ferritin 76 ng/mL. Dated 10/23/24, her homocysteine was 13.2 mcol/L (normal less than 10.4) and methylmalonic acid level 164 nmol/L. Dated 10/23/24, her zinc was 69 mcg/dL (normal 60-130). Dated 10/23/24, her serum protein electrophoresis showed a gamma globulin of 1.0 g/dL with an isolated decrease in albumin. Dated 10/23/24, her serum immunofixation showed no monoclonal proteins. Dated 10/23/24, her IgG was 870 mg/dL, IgM 741 mg/dL (normal 50-300), and IgA 142 mg/dL. Dated 10/23/24, her kappa was 24.4 mg/L (normal 3.3-19.4), lambda 21.4 mg/dL, kappa/lambda ratio 1.14. Dated 10/25/24, her BUN was 24, creatinine 0.78, and calcium 10.8. In summary, Ms. Jovana Malik is an 79 y.o. 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 She has been on long-term anticoagulation with warfarin, targeting INR values of 1.5-2 owing to herhistory of hemorrhagic complications, with gastrointestinal bleeding and hemoptysis in the past, and skin bruising into the present day. The possibility of stopping anticoagulation has been raised numerous times in the past, but the patient has been hesitant about this. She had iron deficiency in the setting of gastrointestinal bleeding in 2014 and was treated with oral iron supplementation. 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 Her gammopathy labs showed a chronic elevation in serum free kappa light chain with normal kappa/lambda ratio, and polyclonal IgM elevation attributed to her antiphospholipid antibodies. In the past, she tried sildenafil for pulmonary hypertension but did not tolerate it. In 2022, she had a mitral valve clip repair (08/10/22). Afterwards, her hemoptysis resolved. Today, I am seeing Ms. Malik in 6-month follow-up. She remains on warfarin with INR values both below and above her reduced INR target range. She is on iron and folate supplementation. Her most recent gammopathy labs showed a minor elevation in the kappa light chain with normal kappa/lambda ratioand an elevated quantitative IgM level, the latter believed to be polyclonal, related to her antiphospholipid antibodies; while a very faint kappa-restricted monoclonal gammopathy could be possible, there is no radha evidence to support this. She has had some emergency department visits for shortness of breath and tachycardia, with chest imaging showing some lung volume loss and fluid overload; her bridge repairer, Dr. Henry Kelly, wondered if there might be a pulmonary vascular component toher respiratory symptoms, although a prior attempt at sildenafil was not tolerated. Dr. Kelly also wondered if she should try hydroxychloroquine, but she has been hesitant to proceed with this. In seeing her today, she feels exhausted, and I wondered if this might be at least partly related to fluid overload or pulmonary hypertension. In the past, she saw Dr. Simone House in the [facility] at [place] and loved him, then later Dr. Jamar Che. I wondered if it might be worth her seeing a different pulmonary hypertension specialist at [place] for a reassessment of her pulmonary hypertension perhaps via a cardiopulmonary exercise test. I will otherwise see her again in 6 months. ------- Ronald Mills M.D., Ph.D. [phone] CC: Dr. Caitlyn Bowie; Dr. Henry Kelly; Dr. Christo Hogan Total encounter time, including medical record review, laboratory, radiology, and result interpretation, and patient interview, exam, assessment, and discussion: 30 min. documented in this encounter Plan of Treatment Upcoming Encounters Date Type Department Care Team (Late st Contact Info) Description 04/25/2025 4:00 PM EDT Telemedicine Cancer Center at [facility] 240 [facility] Building [address] [place], [place] [phone] Ronald Mills MD [address] [place] [address] [address] [place] [address] documented as of this encounter Procedures Procedure Name Priority Date/Time Associated Diagnosis Comments LAB SCAN 10/25/2024 12:00 AM EDT LAB SCAN 10/23/2024 12:00 AM EDT documented in this encounter Results * Lab Scan (10/25/2024 12:00 AM EDT) us Provider Not In System LAB BLOOD ORDERABLES Carmina l Result * Lab Scan (10/23/2024 12:00 AM EDT) us Provider Not In System LAB BLOOD ORDERABLES Carmina l Result documented in this encounter Visit Diagnoses Diagnosis Hypokalemia- Primary Hypopotassemia VTE (venous thromboembolism) Embolism and thrombosis of unspecified site Antiphospholipid antibody syndrome (HC Code) Primary hypercoagulable state 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
--- OUTSIDE RECORDS SUMMARY | 2024-11-03 14:34 | XMS_ITS | Encounter Summary ---
Author Organization [facility] Address [address] [place] [address] Care Team Providers Care Field Auditor Name Role Phone Caitlyn Bowie MD Primary Care Provider +1- [phone] Reason for Visit * Reason Onset Date Comments Appointment 10/31/2024 Encounter Details Date Type Department Care Team (Late st Contact Info) Description 10/31/2024 Telephone [facility] [address] [address] Ronald Mills MD [address] [place] [phone] Appointment Social History Tobacco Use Types Packs/Day Years [...] encounter Miscellaneous Notes * Telephone Encounter - Raquel Rojas - 10/31/2024 2:23 PM EDT order desk caller called in and stated wanted patient to schedule an appointment on 04/25 at 4 pm in person in [place]. Patient said that appointment is too late in day to come in person, would a telemed be ok? documented in this encounter Plan of Treatment Upcoming Encounters Date Type Department Care Team ([facility] st Contact Info) Description 04/25/2025 4:00 PM EDT Telemedicine Cancer Center at [facility] 240 [facility] Building [address] [place] [address] Ronald Mills MD 240 [facility] [address] [place] [address] documented as of this encounter Visit Diagnoses Not on filedocumented in this encounter Additional Health Concerns Assessment Noted Time PHQ-9 Depression Total Score: 2 11/07/19 19 2:06 PM EDT documented as of this encounter Care Teams Field Auditor Relationship Specialty Start Date End Date Caitlyn Bowie MD [address] [address] PCP - General Internal Medicine 05/06/21 documented as of this encounter
--- OUTSIDE RECORDS SUMMARY | 2024-11-03 14:34 | XMS_ITS | Encounter Summary ---
Author Organization [facility] Address [address] [place] [phone] Care Team Providers Care Telesales Specialist Name Role Phone Caitlyn Bowie MD Primary Care Provider +1- [phone] Encounter Details Date Type Department Care Team (Late Contact Info) Description 09/18/2020 Scanned Document REPLACED BY [facility] Health Information Management [address] [place] [phone] External, Provider Social History Tobacco Use Types [...] 4:00 PM EDT Telemedicine Cancer Center at [facility] 240 [facility] Building [address] [place], [place] [phone] Ronald Mills MD [address] [place] [address] [address] [place] [address] documented as of this encounter [...] End Date Caitlyn Bowie MD [address] [address] PCP - General Internal Medicine 05/06/21 documented as of this encounter
--- OUTSIDE RECORDS SUMMARY | 2024-11-03 14:34 | XMS_ITS | Encounter Summary ---
Author Organization [facility] Address [address] [place] [phone] Care Team Providers Care Php Wordpress Developer Name Role Phone Caitlyn Bowie MD Primary Care Provider +1- [phone] Encounter Details Date Type Department Care Team (Late Contact Info) Description 09/15/2020 Scanned Document [facility] Health Information Management [address] [place] [id number] External, Provider Social History Tobacco Use Types [...] 4:00 PM EDT Telemedicine Cancer Center at [facility] 240 [facility] Building [address] [place], [place] [phone] Ronald Mills MD [address] [place] [address] [address] [place] [address] documented as of this encounter [...] as of this encounter Care Teams Php Wordpress Developer Relationship Specialty Start Date End Date Caitlyn Bowie MD [address] [address] PCP - General Internal Medicine 05/06/21 documented as of this encounter
--- OUTSIDE RECORDS SUMMARY | 2024-11-03 14:34 | XMS_ITS | Encounter Summary ---
Author Organization [facility] and [facility] Address [address] [place] [address] Care Team Providers Care Marketing Research Intern Name Role Phone Caitlyn Bowie MD Primary Care Provider +1- [phone] Encounter Details Date Type Department Care Team (Late st Contact Info) Description 12/16/2016 Scanned Document [facility] Health Information Management [address] [place] [address] External, Provider Social History Tobacco Use Types [...] [facility] [address] [place], [place] [id number] Ronald Mills MD 240 [facility] A1 [place] [address] documented as of this encounter Visit Diagnoses Not on filedocumented in this encounter Additional Health Concerns Infection Onset Date Last Indicated Resolved Time COVID-19 03/05/2022 03/05/2022 03/15/2022 7:18 PM EDT documented as of this encounter Care Teams Marketing Research Intern Relationship Specialty Start Date End Date Caitlyn Bowie MD 3400 [facility] 1 [place] [address] PCP - General Internal Medicine 05/06/21 Henry Kelly MD Pulmonary Department 175 [facility], [address] [place] [address] Physician Pulmonary Disease 09/06/17 06/22/20 documented as of this encounter
--- OUTSIDE RECORDS SUMMARY | 2024-11-03 14:34 | XMS_ITS | Encounter Summary ---
Author Organization [facility] and [facility] Address 20 [place] [address] Care Team Providers Care Management Assistant Name Role Phone Caitlyn Bowie MD Primary Care Provider +1- [phone] Encounter Details Date Type Department Care Team (Late st Contact Info) Description 05/19/2020 Scanned Document [facility] at [address] [address] External, Provider Social History Tobacco Use Types [...] 4:00 PM EDT Telemedicine [facility] at [facility] 240 [facility] [address] [place], [place] [phone] Ronald Mills MD [address] [place] [address] [address] [place] [address] documented as of this encounter [...] as of this encounter Care Teams Management Assistant Relationship Specialty Start Date End Date Caitlyn Bowie MD 3400 [facility] 1 [place] [address] PCP - General Internal Medicine 05/06/21 Henry Kelly MD Pulmonary Department 175 [facility], [address] [place] [address] Physician Pulmonary Disease 09/06/17 06/22/20 documented as of this encounter
--- OUTSIDE RECORDS SUMMARY | 2024-11-03 14:34 | XMS_ITS | Encounter Summary ---
Author Organization [facility] and [facility] Address [address] [place] [address] Care Team Providers Care Principal Cloud Architect Name Role Phone Caitlyn Bowie MD Primary Care Provider +1- [phone] Encounter Details Date Type Department Care Team (Late st Contact Info) Description 12/16/2016 Scanned Document [facility] Health Information Management [address] [place] [address] External, Provider Social History Tobacco Use Types [...] 4:00 PM EDT Telemedicine [facility] Center at [facility] 240 [facility] Building [address] [place], [place] [phone] Ronald Mills MD 240 [facility] [address] [place] [address] documented as [...] as of this encounter Care Teams Principal Cloud Architect Relationship Specialty Start Date End Date Caitlyn Bowie MD 3400 [facility] 1 [place] [address] PCP - General Internal Medicine 05/06/21 Henry Kelly MD Pulmonary Department 175 [facility], [address] [place] [address] Physician Pulmonary Disease 09/06/17 06/22/20 documented as of this encounter
--- OUTSIDE RECORDS SUMMARY | 2024-11-03 14:34 | XMS_ITS | Encounter Summary ---
Author Organization [facility] and [facility] Address [address] [place] [address] Care Team Providers Care Boston Cutter Name Role Phone Caitlyn Bowie MD Primary Care Provider +1- [phone] Encounter Details Date Type Department Care Team (Late st Contact Info) Description 12/16/2016 Scanned Document [facility] Health Information Management [address] [place] [address] External, Provider Social History Tobacco Use Types [...] 4:00 PM EDT Telemedicine Cancer Center at [facility] 240 [facility] [address] [place], [place] [phone] Ronald Mills MD 240 [facility] Max [address] [place] [address] documented as of this encounter [...] documented as of this encounter Care Teams Boston Cutter Relationship Specialty Start Date End Date Caitlyn Bowie MD 3400 [facility] 1 [place] [address] PCP - General Internal Medicine 05/06/21 Henry Kelly MD Pulmonary Department 175 [facility], [address] [place] [address] Physician Pulmonary Disease 09/06/17 06/22/20 documented as of this encounter
--- OUTSIDE RECORDS SUMMARY | 2024-11-03 14:34 | XMS_ITS | Encounter Summary ---
Author Organization [facility] and [facility] Address [address] [place] [address] Care Team Providers Care Gameplay Engineer Name Role Phone Caitlyn Bowie MD Primary Care Provider +1- [phone] Encounter Details Date Type Department Care Team (Late st Contact Info) Description 09/15/2020 Scanned Document INTERFACE DEFAULT [address] [place] [address] System, Provider Not In Social History Tobacco [...] [facility] 240 [facility] [address] [place] [address] Ronald Mills MD [address] [place] [address] [address] [place] [address] documented as of this encounter Visit Diagnoses Not on filedocumented in this encounter Additional Health Concerns Infection Onset Date Last Indicated Resolved Time COVID-19 03/05/2022 03/05/2022 03/15/2022 7:18 PM EDT Assessment Noted Time PHQ-9 Depression Total Score: 2 11/07/19 19 2:06 PM EDT documented as of this encounter Care Teams Gameplay Engineer Relationship Specialty Start Date End Date Caitlyn Bowie MD [address] [address] PCP - General Internal Medicine 05/06/21 documented as of this encounter
--- OUTSIDE RECORDS SUMMARY | 2024-11-03 14:34 | XMS_ITS | Encounter Summary ---
Author Organization [facility] Address [address] [place] [address] Care Team Providers Care Tax Clerk Name Role Phone Caitlyn Bowie MD Primary Care Provider +1- [phone] Encounter Details Date Type Department Care Team (Late st Contact Info) Description 09/16/2020 Scanned Document [facility] Health Information Management [address] [place] [address] External, Provider Social History Tobacco Use Types [...] [facility] 240 [facility] Building [address] [place], [place] [phone] Ronald Mills MD [address] [place] [address] [address] [place] [address] documented as of this encounter Procedures Procedure [...] as of this encounter Care Teams Tax Clerk Relationship Specialty Start Date End Date Caitlyn Bowie MD [address] [address] PCP - General Internal Medicine 05/06/21 documented as of this encounter
--- OUTSIDE RECORDS SUMMARY | 2024-11-03 14:34 | XMS_ITS | Encounter Summary ---
Author Organization [facility] and [facility] Address [address] [place] [address] Care Team Providers Care Is Manager Name Role Phone Caitlyn Bowie MD Primary Care Provider +1- [phone] Encounter Details Date Type Department Care Team (Late st Contact Info) Description 09/15/2020 Scanned Document Cancer Center at [address] [address] External, Provider Social History Tobacco Use Types [...] [facility] 240 [facility] Building [address] [place], [place] [phone] Ronald Mills MD [address] [place] [address] [address] [place] [address] documented as of this encounter [...] documented as of this encounter Care Teams Is Manager Relationship Specialty Start Date End Date Caitlyn Bowie MD [address] [address] PCP - General Internal Medicine 05/06/21 documented as of this encounter
--- NOTE | 2024-11-03 14:35 | ED_ITS ---
HPI - General Adult General Chief complaint: Abdominal Pain Stated complaint: ABD PAIN Time Seen by Provider: 11/03/24 13:53 Source: patient, RN notes reviewed and old records reviewed Mode of arrival: EMS Limitations: no limitations History of Present Illness ED Provider: Nelly HPI narrative: 79-year-old female with a past medical history significant for COPD on chronic 2 L of oxygen, iron-deficiency anemia, factor 5 Leiden deficiency, coronary artery disease, lung cancer, pulmonary hypertension, heart failure, anxiety presents for evaluation abdominal pain. Patient reports primarily left-sided abdominal pain for the last 5 days She reports that she had been passing a lot of gas up until yesterday and now she does not feel as if she was passing gas at all Denies any history abdominal surgeries Denies any black or bloody stool. She does report a history of constipation Her pain is 8/10, she has mild associated nausea but no vomiting Denies any fevers, chills, chest pain, cough, shortness of breath Related Data Home Medications ?Medication ?Instructions ?Recorded ?Confirmed CPAP (CPAP Machine/Device) 06/30/22 10/04/24 Oxygen Home Use 06/30/22 10/04/24 nebulizers 06/30/22 10/04/24 epinephrine 0.3 mg/0.3 mL 0.3 mg IM USEASDIRECTD PRN 07/14/22 10/04/24 injection, auto-injector Allergic Reaction levothyroxine 25 mcg tablet 50 mcg PO SUSA@0600 01/05/24 10/04/24 (Synthroid) warfarin 2.5 mg tablet (Jantoven) 1.5 mg PO DAILY@1800 01/05/24 10/04/24 docusate sodium 100 mg capsule 100 mg PO DAILY 01/14/24 10/04/24 fluticasone propionate 50 2 spray intranasal DAILY 02/01/24 10/04/24 mcg/actuation nasal spray,suspension guaifenesin 400 mg tablet 400 mg PO TID 02/01/24 10/04/24 magnesium hydroxide 400 mg/5 mL 30 ml PO NEEDED PRN 02/01/24 10/04/24 oral suspension (Milk of Magnesia) Constipation, No BM in 3 days Previous Rx's ?Medication ?Instructions ?Recorded diazepam 5 mg tablet 5 mg PO BID PRN anxiety #14 tabs 02/04/24 simethicone 80 mg chewable tablet 80 mg PO QIDWMHS #20 tabs 02/04/24 (Gas Relief (simethicone)) Advair HFA 230 mcg-21 2 puff inhalation BID 90 days #36 03/13/24 mcg/actuation aerosol inhaler grams (fluticasone propion-salmeterol) albuterol sulfate 90 mcg/actuation 2 inh inhalation Q6H PRN shortness 04/01/24 aerosol inhaler of breath or wheezing 90 days #3 ea furosemide 40 mg tablet 80 mg (2 x 40 mg) PO BID #360 tabs 05/01/24 metoprolol succinate 50 mg 50 mg PO BID #180 tabs 05/10/24 tablet,extended release 24 hr (Toprol XL) levocetirizine 5 mg tablet 5 mg PO DAILY 90 days #90 tabs 05/23/24 prednisone 2.5 mg tablet 2.5 mg PO DAILY 90 days #90 tabs 07/01/24 trazodone 50 mg tablet 100 mg (2 x 50 mg) PO BEDTIME #180 07/01/24 tabs meclizine 25 mg tablet 25 mg PO Q8H PRN dizziness 10 days 07/22/24 #30 tabs rosuvastatin 10 mg tablet 10 mg PO ONCE #90 tabs 08/02/24 potassium chloride 20 mEq 40 meq (2 x 20 mEq) PO DAILY #60 08/12/24 tablet,extended release tabs montelukast 10 mg tablet 10 mg PO DAILY #90 tabs 08/24/24 hydroxychloroquine 200 mg tablet 200 mg PO DAILY 30 days #30 tabs 09/11/24 mupirocin 2 % topical ointment 1 appl topical TID 14 days #15 09/11/24 grams zolpidem 5 mg tablet (Ambien) 5 mg PO BEDTIME PRN sleep 30 days 09/11/24 #30 tabs doxycycline monohydrate 100 mg 100 mg PO BID #14 tabs 10/12/24 tablet Allergies Allergy/AdvReac Type Severity Reaction Status Date / Time morphine Allergy Severe Itching Verified 11/03/24 14:01 avocado [AVOCADO] Allergy Mild ITCHY Verified 11/03/24 14:01 THROAT, RASH azithromycin [AZITHROMYCIN] Allergy Mild ITCHY Verified 11/03/24 14:01 THROAT, RASH barium iodide [BARIUM IODIDE] Allergy Mild ITCHY Verified 11/03/24 14:01 THROAT, RASH barium sulfate Allergy Mild Itch Verified 11/03/24 14:01 bee pollen [BEE STINGS] Allergy Mild ITCHY Verified 11/03/24 14:01 THROAT, RASH ciprofloxacin [From CIPRO] Allergy Mild ITCHY Verified 11/03/24 14:01 THROAT, RASH clarithromycin [From BIAXIN] Allergy Mild ITCHY Verified 11/03/24 14:01 THROAT, RASH diatrizoate meglumine Allergy Mild ITCHY Verified 11/03/24 14:01 [From GASTROGRAFIN] THROAT, RASH diatrizoate sodium Allergy Mild ITCHY Verified 11/03/24 14:01 [From GASTROGRAFIN] THROAT, RASH diclofenac [From VOLTAREN] Allergy Mild ITCHY Verified 11/03/24 14:01 THROAT, RASH erythromycin base Allergy Mild ITCHY Verified 11/03/24 14:01 [ERYTHROMYCIN BASE] THROAT, RASH gentamicin [GENTAMICIN] Allergy Mild ITCHY Verified 11/03/24 14:01 THROAT, RASH Iodinated Contrast Media Allergy Mild ITCHY Verified 11/03/24 14:01 [IVP DYE] THROAT, RASH levofloxacin [From LEVAQUIN] Allergy Mild ITCHY Verified 11/03/24 14:01 THROAT, RASH metronidazole [From FLAGYL] Allergy Mild ITCHY Verified 11/03/24 14:01 THROAT, RASH moxifloxacin [From AVELOX] Allergy Mild ITCHY Verified 11/03/24 14:01 THROAT, RASH Penicillins [PENICILLINS] Allergy Mild ITCHY Verified 11/03/24 14:01 THROAT, RASH shrimp [SHRIMP] Allergy Mild ITCHY Verified 11/03/24 14:01 THROAT, RASH Sulfa (Sulfonamide Allergy Mild ITCHY Verified 11/03/24 14:01 Antibiotics) THROAT, [SULFA (SULFONAMIDE RASH ANTIBIOTICS)] vancomycin [VANCOMYCIN] Allergy Mild ITCHY Verified 11/03/24 14:01 THROAT, RASH clindamycin AdvReac Intermediate Unknown Verified 11/03/24 14:01 Review of Systems 2 Constitutional: Constitutional: Denies body ache(s), Denies chills, Denies fever(s) and Denies headache(s) Eyes: Eyes: Denies blurry vision ENT: Denies dysphagia, Denies vertigo and Denies headache(s) Cardiovascular: Cardiovascular: Denies chest pain and Denies dyspnea Respiratory: Respiratory: Denies cough and Denies dyspnea Gastrointestinal: Gastrointestinal: Reports abdominal pain, Denies dysphagia, Denies diarrhea, Denies loose stools, Reports nausea and Denies vomiting Genitourinary: Genitourinary: Denies dysuria and Denies pelvic pain Musculoskeletal: Musculoskeletal: Denies back pain Integumentary/Breasts: Skin/Breast: Denies rash Neurologic: Denies vertigo and Denies headache(s) Psychiatric: Psychiatric: Denies anxiety [facility] Past Medical History Medical History Chronic hypercapnic respiratory failure KANDY treated with BiPAP COPD (chronic obstructive pulmonary disease) Open wound Warfarin anticoagulation Complex sleep apnea syndrome Leg pain Anemia Tachycardia DVT (deep venous thrombosis) Compression fracture of body of thoracic vertebra ASD (atrial septal defect) Pleuritic chest pain History of COVID-19 Chronic anticoagulation Hypothyroidism GERD (gastroesophageal reflux disease) Hyperlipidemia Hypertension Factor 5 Leiden mutation, heterozygous History of non-ST elevation myocardial infarction (NSTEMI) Hypoxia Anxiety PTSD (post-traumatic stress disorder) Hemoptysis Dyspnea Tracheobronchitis CLARA positive Diverticulitis Allergic bronchitis (HFpEF) heart failure with preserved ejection fraction Subarachnoid bleed Insomnia Anti-phospholipid antibody syndrome Hypogammaglobulinemia Chronic respiratory failure Arterial insufficiency of lower extremity Complex regional pain syndrome i of right lower limb Post herpetic neuralgia Pulmonary hypertension Pericardial effusion Pulmonary emboli Pleural effusion Radiation fibrosis of lung Pneumonitis Pulmonary nodules Lung cancer Surgical History History of colonoscopy History of lung surgery History of tonsillectomy History of hysterectomy S/P mitral valve clip implantation History of cardiac cath Family History Family History Sister No problems noted. Mother Cardiovascular disease Daughter Tachycardia Other KANDY (obstructive sleep apnea) Social History Social History Household Members: Other Housing: [facility] Do you presently have visiting nurse or other home services: Yes (at home had UNIFORM FORCE CAPTAIN that came to visit her) Unable to assess alcohol history related to: Unknown Alcohol intake: former Comment: stand by assist with ambulation Patient Tobacco Use Status: Never used Tobacco Second Hand Smoke Exposure: No Advance Directives: Yes Advance Directives on File: Yes Advance Directives Date on File: 06/15/22 service: No Current occupational status: retired Physical Exam ED Vital Signs: Vital Signs - 24 hr 11/03/24 13:56 Temperature 98.5 F Pulse Rate 88 Respiratory Rate 18 Blood Pressure 137/67 Pulse Oximetry 100 Oxygen Delivery Method Room Air BMI result Body Mass Index 22.4 Const General: healthy appearing, comfortable, no acute distress, alert and awake Nutritional Appearance: well nourished Orientation/consciousness: patient oriented x3 HENMT Head: Yes normocephalic and Yes atraumatic Eyes Eyelids: Yes eyelids normal Conjunctivae: conjunctivae normal Sclerae: sclerae normal Corneas: corneas normal Pupils: Equal, round and reactive pupils present EOM: EOMs intact bilaterally Neck Neck: Yes full ROM Resp Effort & Inspection: normal respiratory effort, able to speak in complete sentences and not labored Cardio Rate: regular rate Rhythm: regular rhythm GI Inspection: No distended Palpation (GI): Soft to palpation, not firm, Tenderness to palpation present (GI) in the LLQ and in the RLQ; not in the LUQ and not in the RUQ, no guarding and not rigid Skin General skin exam: no rashes or lesions noted and elasticity normal Neuro General: patient oriented x3 Cranial nerves: Yes Equal, round and reactive pupils present and Yes Bilaterally intact EOM present Cognition (Neuro): normal cognition Extrem Other: Moving all extremities well without any obvious deformities Course Reevaluation(s) Reevaluation #1: Discussed patient's workup with her including uncomplicated diverticulitis diagnosis. I did consider treatment with antibiotics, however the patient has numerous medication allergies including azithromycin, ciprofloxacin, clarithromycin, erythromycin, gentamicin, levofloxacin, metronidazole, moxifloxacin, penicillins, sulfa drugs, vancomycin, clindamycin. Given that she has uncomplicated diverticulitis is afebrile with a reassuring exam, she can be discharged with a liquid diet and diverticulitis diet for the next couple of days. Return precautions were given Time: 17:10 Medical Decision Making Medical Decision Making MDM Narrative: 79-year-old female with a past medical history as above presents for evaluation of abdominal pain, constipation. She reports that she was passing a significant amount of gas over the last couple of days but none since yesterday. She does carry a history of diverticulitis as well. She was multiple medication and contrast allergies. Plan for labs, CT scan with out contrast. Concern for bowel obstruction, constipation, colitis, diverticulitis, bowel perforation, gastroenteritis Differential Diagnosis Differential Diagnoses: The differential diagnosis associated with the presentation includes As above Admission/Observation Consideration of admission/observation: Escalation of care including admission/observation considered Consider admission, however the patient has uncomplicated diverticulitis on imaging, she was not septic, she was well-appearing and can tolerate fluids. We will discharge the patient with instructions for a liquid diet for the next couple of days. Return precautions were given including worsening abdominal pain, intractable vomiting, fevers Lab Data MDM Lab Attestation statement: I reviewed the patient's lab results. Mild leukocytosis to 15.0. No significant anemia. Normal platelet count. No significant electrolyte abnormalities warranting intervention. 11/03/24 15:02 11/03/24 15:02 Labs: Lab Results 11/03/24 11/03/24 Range/Units 15:02 16:41 WBC 15.0 H (4.8-10.8) X10*3/uL RBC 3.98 L (4.20-5.50) X10*6/uL Hgb 13.4 (12.0-16.0) g/dl Hct 40.1 (37.0-47.0) % MCV 100.8 H (80.0-98.0) fL MCH 33.7 H (27.0-33.0) pg MCHC 33.4 (31.0-35.0) g/dl RDW 13.0 (11.0-16.0) % Plt Count 247 (160-400) X10*3/uL MPV 11.1 (9.4-12.3) fL Immature Gran % (Auto) 0.7 H (0.0-0.4) % Neut % (Auto) 83.1 H (45-73) % Lymph % (Auto) 6.0 L (20-40) % Anson % (Auto) 9.3 (2-11) % Eos % (Auto) 0.4 (0-4) % Baso % (Auto) 0.5 (0-2) % Lymph # (Auto) 0.9 L (1.2-4.9) X10*3/uL Anson # (Auto) 1.4 H (0.1-1.2) X10*3/uL Eos # (Auto) 0.1 (0.0-0.4) X10*3/uL Baso # (Auto) 0.1 (0.0-0.2) X10*3/uL Abs Immat Gran (auto) 0.11 H (0.00-0.03) X10*3/uL Absolute Neuts (auto) 12.5 H (2.0-8.3) x10*3/uL Absolute Nucleated RBC 0.000 (0.0-0.012) X10*3/uL Nucleated RBC % (auto) 0.0 (0.0-0.2) /100WBC PT 31.2 H D (10.9-12.4) SEC INR 2.7 H (0.9-1.1) Sodium 138 (135-145) mmol/L Potassium 3.3 D (3.3-5.1) mmol/L Chloride 93 L (96-108) mmol/L Carbon Dioxide 30 H (22-29) mmol/L Anion Gap 18 (12-20) BUN 13 (9-16) mg/dL Creatinine 0.75 (0.5-1.4) mg/dL Estim Creat Clear Calc 48.6 Estimated GFR > 60 Random Glucose 95 (60-115) mg/dL Lactic Acid 1.0 (0.5-2.0) mmol/L Calcium 11.0 H (8.4-10.2) mg/dL Total Bilirubin 1.0 (0.0-1.0) mg/dL AST 44 H (5-31) U/L ALT 42 H (0-31) U/L Alkaline Phosphatase 98 (39-117) U/L Total Protein 8.0 (6.5-8.0) g/dL Albumin 4.1 (3.5-5.0) g/dL Lipase 18 (8-78) U/L Discharge Plan Discharge Clinical Impression: Sigmoid diverticulitis Patient Disposition: Home, Self-Care Instructions: Diverticulitis (ED), Diverticulitis Diet (ED) Additional Instructions: Your CT scan shows uncomplicated sigmoid diverticulitis. The treatment for this is generally a liquid diet. There is information in your discharge packet about a diverticulitis diet. Your INR was 2.7 today, follow-up with your bean picker machine operator Return for new or worsening symptoms including severe pain, intractable vomiting, fevers, chills Prescriptions: No Action Advair HFA 230-21 mcg/actuation HFA aerosol inhaler 2 puff inhalation BID 90 Days Qty: 36 4RF albuterol sulfate 90 mcg/actuation HFA aerosol inhaler 2 inh inhalation Q6H PRN (Reason: shortness of breath or wheezing) 90 Days Qty: 3 3RF furosemide 40 mg tablet 80 mg PO BID Qty: 360 3RF metoprolol succinate [Toprol XL] 50 mg tablet extended release 24 hr 50 mg PO BID Qty: 180 3RF levocetirizine 5 mg tablet 5 mg PO DAILY 90 Days Qty: 90 3RF prednisone 2.5 mg tablet 2.5 mg PO DAILY 90 Days Qty: 90 3RF Rx Instructions: On odd days trazodone 50 mg tablet 100 mg PO BEDTIME Qty: 180 3RF meclizine 25 mg tablet 25 mg PO Q8H PRN (Reason: dizziness) 10 Days Qty: 30 0RF rosuvastatin 10 mg tablet 10 mg PO ONCE Qty: 90 2RF potassium chloride 20 mEq tablet extended release 40 meq PO DAILY Qty: 60 3RF montelukast 10 mg tablet 10 mg PO DAILY Qty: 90 3RF doxycycline monohydrate 100 mg tablet 100 mg PO BID Qty: 14 0RF warfarin [Jantoven] 2.5 mg Tablet 1.5 mg PO DAILY@1800 Patient Comments: Dose ranges based on INR goal of 1.5-2. levothyroxine [Synthroid] 25 mcg Tablet 50 mcg PO SUSA@0600 docusate sodium 100 mg Capsule 100 mg PO DAILY magnesium hydroxide [Milk of Magnesia] 400 mg/5 mL Suspension 30 ml PO NEEDED PRN (Reason: Constipation, No BM in 3 days ) fluticasone propionate 50 mcg/actuation spray,suspension 2 spray intranasal DAILY guaifenesin 400 mg Tablet 400 mg PO TID simethicone [Gas Relief (simethicone)] 80 mg Tablet,Chewable 80 mg PO QIDWMHS Qty: 20 0RF diazepam 5 mg tablet 5 mg PO BID PRN (Reason: anxiety) Qty: 14 0RF (DME) nebulizers Misc See Rx Instructions .Route Rx Instructions: As directed (DME) CPAP Machine/Device Device See Rx Instructions .Route Rx Instructions: As directed (DME) Oxygen Home Use Kit See Rx Instructions .Route Rx Instructions: As directed epinephrine 0.3 mg/0.3 mL auto-injector 0.3 mg IM USEASDIRECTD PRN (Reason: Allergic Reaction) hydroxychloroquine 200 mg tablet 200 mg PO DAILY 30 Days Qty: 30 6RF zolpidem [Ambien] 5 mg tablet 5 mg PO BEDTIME PRN (Reason: sleep) 30 Days Qty: 30 3RF mupirocin 2 % ointment 1 appl topical TID 14 Days Qty: 15 1RF Print Language: Japanese
--- OUTSIDE RECORDS SUMMARY | 2024-11-03 14:35 | XMS_ITS | Encounter Summary ---
Author Organization [facility] Address [address] [place] [address] Care Team Providers Care Smoke Eater Name Role Phone Caitlyn Bowie MD Primary Care Provider +1- [phone] Encounter Details Date Type Department Care Team (Late st Contact Info) Description 04/16/2021 Scanned Document INTERFACE DEFAULT [address] [place] [address] System, Provider Not In Social History Tobacco [...] 4:00 PM EDT Telemedicine Cancer [facility] at [facility] 240 [facility] Building [address] [place], [place] [phone] Ronald Mills MD [address] [place] [address] [address] [place] [address] documented as of this encounter [...] documented as of this encounter Care Teams Smoke Eater Relationship Specialty Start Date End Date Caitlyn Bowie MD [facility] [address] [address] PCP - General Internal Medicine 05/06/21 documented as of this encounter
--- OUTSIDE RECORDS SUMMARY | 2024-11-03 14:35 | XMS_ITS | Encounter Summary ---
Author Organization [facility] and [facility] Address [address] [place] [address] Care Team Providers Care Pasteurizer Name Role Phone Caitlyn Bowie MD Primary Care Provider +1- [phone] Encounter Details Date Type Department Care Team (Late st Contact Info) Description 04/12/2021 Scanned Document INTERFACE DEFAULT [address] [place] [address] System, Provider Not In Social History Tobacco [...] at [facility] 240 [facility] Building [address] [place], [place] [phone] Ronald Mills MD [address] [place] [address] [address] [place] [address] documented as of this encounter [...] documented as of this encounter Care Teams Pasteurizer Relationship Specialty Start Date End Date Caitlyn Bwoie MD [address] [address] PCP - General Internal Medicine 05/06/21 documented as of this encounter
--- OUTSIDE RECORDS SUMMARY | 2024-11-03 14:35 | XMS_ITS | Encounter Summary ---
Author Organization [facility] Address 20 [place] [address] Care Team Providers Care Net Development Manager Name Role Phone Caitlyn Bowie MD Primary Care Provider +1- [phone] Encounter Details Date Type Department Care Team (Late st Contact Info) Description 08/09/2017 Scanned Document Cardiovascular Medicine at [address] [place] [address] System, Provider Not In Social History Tobacco [...] [facility] at [facility] 240 [facility] Building [address] [place] [address] Ronald Mills MD 240 [facility] Max [address]1 [place] [address] documented as of this encounter [...] documented as of this encounter Care Teams Net Development Manager Relationship Specialty Start Date End Date Caitlyn Bowie MD 3400 [facility] Max 1 [place] [address] PCP - General Internal Medicine 05/06/21 Henry Kelly MD Pulmonary Department 175 [facility], [address] [place] [address] Physician Pulmonary Disease 09/06/17 06/22/20 documented as of this encounter
--- OUTSIDE RECORDS SUMMARY | 2024-11-03 14:35 | XMS_ITS | Encounter Summary ---
Author Organization [facility] and [facility] Address 20 [place] [address] Care Team Providers Care Paper Machine Supervisor Name Role Phone Caitlyn Bowie MD Primary Care Provider +1- [phone] Encounter Details Date Type Department Care Team (Late st Contact Info) Description 11/26/2019 Scanned Document Cancer Center at [address] [address] External, Provider Social History Tobacco Use Types [...] [facility] 240 [facility] Building [address] [place], [place] [address] Ronald Mills MD [address] [place] [address] [address]1 [place] [address] documented as of this encounter [...] as of this encounter Care Teams Paper Machine Supervisor Relationship Specialty Start Date End Date Caitlyn Bowie MD 3400 [facility] 1 [place] [address] PCP - General Internal Medicine 05/06/21 Henry Kelly MD Pulmonary Department 175 [facility], [address] [place] [address] Physician Pulmonary Disease 09/06/17 06/22/20 documented as of this encounter
--- OUTSIDE RECORDS SUMMARY | 2024-11-03 14:35 | XMS_ITS | Encounter Summary ---
Author Organization [facility] and [facility] Address [address] [place] [address] Care Team Providers Care Blade Filer Name Role Phone Caitlyn Bowie MD Primary Care Provider +1- [phone] Encounter Details Date Type Department Care Team (Late st Contact Info) Description 06/07/2017 Scanned Document [facility] Health Information Management [address] [place] [address] External, Provider Social History Tobacco Use Types [...] 4:00 PM EDT Telemedicine Cancer Center at [facility] 240 [facility] Building [address] [place], [place] [address] Ronald Mills MD [address] [place] [address] [address] [place] [address] documented as of this encounter [...] documented as of this encounter Care Teams Blade Filer Relationship Specialty Start Date End Date Caitlyn Bowie MD 3400 [facility] 1 [place] [address] PCP - General Internal Medicine 05/06/21 Henry Kelly MD Pulmonary Department 175 [facility], [address] [place] [address] Physician Pulmonary Disease 09/06/17 06/22/20 documented as of this encounter
--- OUTSIDE RECORDS SUMMARY | 2024-11-03 14:35 | XMS_ITS | Patient Health Record ---
Author Organization [facility] Address [address] [facility] [address] [place] [address] Care Team Providers Care Clinical Information Systems Director Name Role Phone EVELIN RAMSAY Primary Care Provider Yenny Hou Unavailable [phone] Allergies Allergen (clinical drug ingredient) Drug/Non Drug [...] 11:35:04 PM Interpretation: Performing Lab:[facility], [address] [facility], [place], Phone - [phone], Director - Arely Notes/Report: Urinalysis Reviewed date:05/03/2024 04:40:26 PM Interpretation: Performing Lab: Notes/Report: NITRITE Neg PH 6.0 PROTEIN Neg S.G 1.010 WBC Neg GLUCOSE Neg KETONES Neg UROBILINOGEN Neg BILIRUBIN Neg BLOOD Neg Urinalysis, Complete-[id number] Reviewed date:05/04/2024 11:35:42 PM Interpretation: Performing Lab:[facility] [place], [address] [facility], Phone - [phone], Director - Arely Notes/Report: Specific [place] 1.009 1.005-1.030 pH 6.5 5.0-7.5 Urine-Color Yellow [...] Bacteria None seen None seen/Few Urine Culture, Routine-[id number] Reviewed date:05/04/2024 11:35:22 PM Interpretation: Performing Lab:[facility] [place], [address] [place] [address], [place], Phone - [phone], Director - Arely Notes/Report: Urine Culture, Routine Final report Result 1 Culture shows less than 10,000 colony forming units of bacteria per milliliter of urine. This colony count is not generally considered to be clinically significant. Reason For Referral No Information Medications Medication [...] Synthroid 25MCG 1 ORAL daily for -3 [facility] 06/10/2014 Active ZyrTEC Allergy 10MG 1 [...] 1 ORAL at bedtime fo r -3 [facility] 06/10/2014 Active Meclizine HCl 25 MG 1 tablet as needed Orally [facility] 06/10/2014 Active Albuterol Sulfate (2.5 MG/3ML)0.083% Inhalation 4 x a day prn 06/10/2014 Active Valium 5MG 1 tablet as needed O RAL at bedtime, 1/2 tab prn during the day [facility] 06/10/2014 Active Social History Tobacco Use: [...] Status Risk Notes Problem Postmenopausal atrophic vaginitis (73715818) Postmenopausal atrophic vaginitis (N95.2) Active confirmed Problem Age-related osteoporosis (550316984) Age-related osteoporosis without current pathological fracture (M81.0) Active confirmed Problem Urgent desire to urinate (40426422) Urgency of urination (R39.15) Active confirmed Problem 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 Problem Chronic systolic heart failure (334545010) Chronic systolic (congestive) heart failure (I50.22) Active confirmed Problem Chronic obstructive pulmonary disease (37882444) Chronic obstructive pulmonary disease, unspecified (J44.9) Active confirmed Problem Functional urinary incontinence (700436616) Functional 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) Active confirmed Problem Personal history of primary malignant neoplasm of bronchus (486151561) 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) Active confirmed Vital Signs Temperature 97.7 degrees Fahrenheit 07/18/2024 Blood pressure diastolic 62 mm Hg 07/18/2024 Height 63 in 07/18/2024 Blood pressure systolic 102 mm Hg 07/18/2024 Weight 126 lbs 07/18/2024 BMI 22.32 kg/m2 07/18/2024 Encounters Encounter Location Date Provider Diagnosis Total [address] [address] 05/03/2024 Yenny Elizalde Urgency of urination R39.15 and Abscess of vulva N76.[address] [address] 05/10/2024 Yenny Elizalde Abscess of vulva N76 .[address] [address] 05/17/2024 Yenny Elizalde Abscess of vulva N76 .[address] [address] 07/09/2024 Yenny Elizalde Urgency of urination R39.15 ; Acute vaginitis N76.0 and Postmenopausal atrophic vaginitis N95.[address] [address] 07/18/2024 Yennydorothy Lovettva Encounter for screening mammogram for malignant neoplasm of breast Z12.31 and Mastodynia N64.[address] [address] 05/10/2024 Yenny Elizalde Total [address] [address] 05/13/2024 Yenny Elizalde Total [address] [place] [address] 06/11/2024 Yenny Roweueva Assessments Encounter Date Diagnosis [...] [facility]. CALLED [facility] AND DISCUSSED THIS PAT. THEY [...] Date MEDICARE [address] VEDA NIEVES [id number] [phone] [id number] CINDA WATSON Self - patient is the insured [employer] [address] [place] [address] [id number] CINDA WATSON Self - patient is [...]
--- OUTSIDE RECORDS SUMMARY | 2024-11-03 14:35 | XMS_ITS | Encounter Summary ---
Author Organization [facility] and [facility] Address [address] [place] [address] Care Team Providers Care Coal Cutting Machine Operator Name Role Phone Caitlyn Bowie MD Primary Care Provider +1- [phone] Encounter Details Date Type Department Care Team (Late st Contact Info) Description 04/26/2017 Scanned Document Cardiovascular Medicine at [address] [place] [address] Norma Renee MD [address] [place] [phone] Social History Tobacco Use Types Packs/Day Years [...] 4:00 PM EDT Telemedicine Cancer Center at [address] [place], [place] [phone] Ronald Mills MD [address] [place] [address] [address]1 [place] [address] documented as of this encounter Visit Diagnoses Not on filedocumented in this encounter Additional Health Concerns Infection Onset Date Last Indicated Resolved Time COVID-19 03/05/2022 03/05/2022 03/15/2022 7:18 PM EDT documented as of this encounter Care Teams Coal Cutting Machine Operator Relationship Specialty Start Date End Date Caitlyn Bowie MD 3400 [facility] 1 [place] [address] PCP - General Internal Medicine 05/06/21 Henry Kelly MD Pulmonary Department 175 [facility], [address] [place] [address] Physician Pulmonary Disease 09/06/17 06/22/20 documented as of this encounter
--- OUTSIDE RECORDS SUMMARY | 2024-11-03 14:35 | XMS_ITS | Clinical Summary ---
Author Organization [address] Address [address] [place] [address] Phone Care Team Providers Care Hat Finisher Name Role Phone Caitlyn Bowie MD Primary Care Provider +1- [phone] Allergies Active Allergy Reactions Criticality Noted Date [...] Active diazepam (VALIUM) 5 MG tablet Take 0.5 [...] 18 Active Additional Information Patient taking differently: 80 mgOral2 Times Daily Scheduled, Reported on 10/31/2024 omeprazole (PRILOSEC) 40 MG capsule Take 1 [...] following a meal. 180 tablet 3 09/02/19 Active ferrous gluconate (FERGON) 324 mg (38 mg iron) tabletIndications:B leeding Take 1 tablet (324 mg total) by mouth daily with breakfast. 90 tablet 2 03/02/20 Active MULTIVITAMIN ORAL Take by mouth. Active [...] legs 100 g 6 09/13/19 24 Active Additional Information Patient not taking.Reported on 10/31/2024 folic acid (FOLVITE) 1 mg tablet Take 1 tablet (1 mg total) by mouth daily. 100 tablet 3 05/01/20 24 Active HARD TO ENTER MEDICATION 1 each. She takes some type of iron. Active Active Problems Problem Noted Date Diagnosed [...] Exposed to tobacco smoke by family members [facility] [place] Bronchiectasis COPD (chronic obstructive pulmonary disease) Mildly restrictive lung disease Resolved Problems Problem Noted Date Diagnosed Date Resolved Date KANDY (obstructive sleep apnea) 11/21/2016 01/22/2018 Carotid stenosis, asymptomatic, right 09/18/2015 06/10/2016 Encounters Date Type Department Care Team Description 10/31/2024 1:00 PM EDT Office Visit Hematology Program at [address] [address] Ronald Mills MD Hypokalemia (Primary Dx); VTE (venous thromboembolism); Antiphospholipid antibody syndrome (HC Code); Elevated homocysteine; Abnormal gamma globulin level; Pulmonary hypertension (HC Code) 10/31/2024 Telephone Hematology Program at [address] [address] Ronald Mills MD Appointment 10/25/2024 Orders Only Cancer Center at [address] [place] [address] Taya Nuno RN Hypokalemia (Primary Dx) 10/25/2024 Telephone Hematology Program at [address] [address] Ronald Mills MD Other; Triage 10/23/2024 Scanned Document INTERFACE DEFAULT [address] [place] [address] System, Provider Not In 10/23/2024 Telephone Hematology Program at [address] [address] Marcus Valera MD Triage 10/23/2024 Orders Only Hematology Program at [address] [place] [address] Ronald Mills MD VTE (venous thromboembolism) (Primary Dx); Antiphospholipid antibody syndrome (HC Code); Elevated homocysteine; Abnormal gamma globulin level; Feeding difficulties, unspecified 10/23/2024 Telephone Cancer Center at [address] [place] [address] Ronald Mills MD Labs Only 10/22/2024 Telephone Hematology Program at [address] [address] Ronald Mills MD Other 10/18/2024 10:30 AM EDT Office Visit [facility] [address] [place] [phone] Alfredo Michaud Jr. PA KANDY (obstructive sleep apnea) (Primary Dx); Fatigue, unspecified type; Excessive daytime sleepiness; MCI (mild cognitive impairment) with memory loss 09/30/2024 Orders Only [facility] [address] [place] [phone] Adalgisa Whitney MD KANDY (obstructive sleep apnea) 09/30/2024 Orders Only [facility] [address] [place] [phone] Adalgisa Whitney MD KANDY (obstructive sleep apnea) (Primary Dx) 09/24/2024 Telephone Hematology Program at [address] [address] Ronald Mills MD Triage; Results 09/23/2024 Scanned Document INTERFACE DEFAULT 20 [place] [address] System, Provider Not In 09/15/2024 Scanned Document INTERFACE DEFAULT [address] [place] [address] System, Provider Not In 09/09/2024 Scanned Document INTERFACE DEFAULT [address] [place] [address] System, Provider Not In 08/30/2024 Abstract [facility] [address] [place] [phone] Adalgisa Whitney MD 08/08/2024 Scanned Document INTERFACE DEFAULT [address] [place] [address] System, Provider Not In from Last 3 [...] oz) 10/31/2024 1:19 P M EDT Height 157.5 cm (5' 2 ) 10/18/2024 11:05 AM EDT Body Mass Index 23.83 10/18/2024 11:05 AM EDT Plan of Treatment Upcoming Encounters Date Type Department Care Team (Late st Contact Info) Description 04/25/2025 4:00 PM EDT Telemedicine Cancer Center at [facility] [address] [place], [place] [address] Ronald Mills MD [address] [place] [address] Health Maintenance Due Date Last [...] - 144 mmol/L 04/05/2022 1:43 PM EDT [facility] DEPARTMENT OF LABORATORY MEDICINE [facility] Potassium 4.7 3.3 - 5.3 mmol/L 04/05/2022 1:43 PM EDT [facility] DEPARTMENT OF LABORATORY MEDICINE [facility] Chloride 100 98 - 107 mmol/L 04/05/2022 1:43 PM EDT [facility] DEPARTMENT OF LABORATORY MEDICINE [facility] CO2 30 20 - 30 mmol/L 04/05/2022 1:43 PM EDT [facility] DEPARTMENT OF LABORATORY MEDICINE [facility] Anion Gap 8 7 - 17 04/05/2022 1:43 PM EDT [facility] DEPARTMENT OF LABORATORY MEDICINE [facility] Glucose 115(H) 70 - 100 mg/dL 04/05/2022 1:43 PM [facility] DEPARTMENT LABORATORY MEDICINE [facility] BUN 16 8 - 23 mg/dL 04/05/2022 1:43 PM [facility] DEPARTMENT LABORATORY MEDICINE [facility] Creatinine 0.89 0.40 - 1.30 mg/dL 04/05/2022 1:43 PM EDT [facility] DEPART[facility] LAB[facility]ATORY [facility] Calcium 10.5(H) 8.8 - 10.2 mg/dL 04/05/2022 1:43 PM [facility] DEPARTMENT LABORATORY MEDIC[facility] BUN/Creatinine Ratio 18.0 8.0 - 23.0 03/11 1:43 PM [facility] DEPARTMENT LABORATORY MEDIC[facility] Total Protein 7.0 6.6 - 8.7 g/dL 04/05/2022 1:43 PM [facility] DEPARTMENT LABORATORY MEDICINE [facility] Albumin 4.2 3.6 - 4.9 g/dL 04/05/2022 1:43 PM [facility] DEPARTMENT LABORATORY MEDICINE [facility] Total Bilirubin 0.6 <=1.2 mg/dL 04/05/2022 1:43 PM [facility] DEPARTMENT LABORATORY MEDICINE [facility] Alkaline Phosphatase 58 9 - 122 U/L 04/05/2022 1:43 PM [facility] DEPARTMENT OF LABORATORY MEDICINE [facility] Alanine Aminotransferase (ALT) 19 10 - 35 U/L 04/05/2022 1:43 PM [facility] DEPARTMENT LABORATORY MEDICINE [facility] Comment:Calcium dobesilate c an cause artificially low ALT results at therapeutic concentrations Aspartate Aminotransferase (AST) 26 10 - 35 U/L 04/05/2022 1:43 PM [facility] DEPARTMENT LABORATORY MEDICINE [facility] Globulin 2.8 2.3 - 3.5 g/dL 04/05/2022 1:43 PM EDT [facility] DEPARTMENT OF LABORATORY MEDICINE [facility] A/G Ratio 1.5 1.0 - 2.2 04/05/2022 1:43 PM EDT [facility] AST/ALT Ratio 1.4 See Comment 04/05/2022 1:43 PM EDT [facility] Comment: Adult with mild elevations of [...] >=60 mL/min/1.7 3m2 04/05/2022 1:43 PM EDT [facility] MEDICINE [facility] Comment:Estimated glomerular filtration rate (eGFR) [...] MD LAB BLOOD ORDERABLES Final Resul t [facility]IC[facility] [address] [place] [address] * Bone Density Result Scan (05/10/2017) us Historical Provider IMG SCAN REPORTS Final Resul t * (ABNORMAL) Lipid panel (03/18/2016 2:55 PM EDT) Cholesterol 229(H) 115 - 199 mg/dL 03/18/2016 8:11 PM EDT [facility] HDL 83 >=40 mg/dL 03/18/2016 8:11 PM EDT [facility] Triglycerides 71 30 - 150 mg/dL 03/18/2016 8:11 PM EDT [facility] Chol/HDL Ratio 2.8 <=5 03/18/2016 8:11 PM EDT [facility] Comment:Cholesterol/HDL rati o cannot be calculated. LDL Calculated 132 See Comment mg/dL 03/18/2016 8:11 PM EDT [facility] Comment: <100: Optimal 100-129: Near optimal/above optimal 130-159: Borderline high risk 160-189: High risk ??>=190: Very high risk Blood specimen (specimen) Venipuncture / Unknown 03/18/2016 2:55 PM EDT 03/18/2016 3:17 PM EDT Narrative [facility] - 03/18/2016 8:11 PM EDT $18.27 us Sangeeta Garces MD LAB BLOOD ORDERABLES Fin al Result [facility] [address] [place] [address] * MAMMOGRAPHY REPORT (04/25/2013 6:47 AM EDT) 04/25/2013 6:47 AM EDT us Provider Not In System IMG SCAN REPORTS Final Re sult from Last 3 Months or Most Recently Relevant to Health Maintenance Insurance MEDICARE [facility] MEDICARE [facility] MEDICARE [facility] MEDICARE MEDICARE BCBS Advance Directives * Full ACLS (Latest Code Status on File) Date Activated Date Inactivated Comments 12/15/2018 7:13 PM 12/16/2018 6:09 PM * Full Interventions Date Activated Date Inactivated Comments 03/18/2016 6:34 PM 03/19/2016 6:40 PM Care Teams Hat Finisher Relationship Specialty Start Date End Date Caitlyn Bowie MD [address] [phone] PCP - General Internal Medicine 05/06/21
--- OUTSIDE RECORDS SUMMARY | 2024-11-03 14:35 | XMS_ITS | Encounter Summary ---
Author Organization [facility] and [facility] Address [address] [place] [address] Care Team Providers Care Brake Operator Helper Name Role Phone Caitlyn Bowie MD Primary Care Provider +1- [phone] Encounter Details Date Type Department Care Team (Late st Contact Info) Description 07/12/2019 Scanned Document Onco-Oncology Program at [address] [place] [address] Norma Renee MD [address] [place] [address] 2 [place] [address] Social History Tobacco Use Types [...] 4:00 PM EDT Telemedicine Cancer Center at [address] [place], [place] [phone] Ronald Mills MD [address] [facility] [address] [place] [address] documented as of this encounter Visit Diagnoses Not on filedocumented in this encounter Additional Health Concerns Infection Onset Date Last Indicated Resolved Time COVID-19 03/05/2022 03/05/2022 03/15/2022 7:18 PM EDT Assessment Noted Time PHQ-9 Depression Total Score: 2 11/07/19 19 2:06 PM EDT documented as of this encounter Care Teams Brake Operator Helper Relationship Specialty Start Date End Date Caitlyn Bowie MD 34[address] [facility] 1 [place] [address] PCP - General Internal Medicine 05/06/21 Henry Kelly MD Pulmonary Department [address] [facility], [address] [place] [address] Physician Pulmonary Disease 09/06/17 06/22/20 documented as of this encounter
--- OUTSIDE RECORDS SUMMARY | 2024-11-03 14:35 | XMS_ITS | Encounter Summary ---
Author Organization [facility] and [facility] Address [address] [place] [address] Care Team Providers Care Flying Ii Instructor Name Role Phone Caitlyn Bowie MD Primary Care Provider +1- [phone] Encounter Details Date Type Department Care Team (Late st Contact Info) Description 08/29/2019 Scanned Document Cancer Center at [address] [address] External, Provider Social History Tobacco Use Types [...] Cancer Center at [facility] [address] [facility] [address] [place], [place] [phone] Ronald Mills MD [address] [place] [address] [address] [place] [address] documented as of this encounter [...] as of this encounter Care Teams Flying Ii Instructor Relationship Specialty Start Date End Date Caitlyn Bowie MD [address] [facility] 1 [place] [address] PCP - General Internal Medicine 05/06/21 Henry Kelly MD Pulmonary Department 175 [facility] [place] [address] Physician Pulmonary Disease 09/06/17 06/22/20 documented as of this encounter
--- OUTSIDE RECORDS SUMMARY | 2024-11-03 14:35 | XMS_ITS | Encounter Summary ---
Author Organization [facility] and [facility] Address [address] [place] [address] Care Team Providers Care Plastic Card Grader Cardroom Name Role Phone Caitlyn Bowie MD Primary Care Provider +1- [phone] Encounter Details Date Type Department Care Team (Late st Contact Info) Description 12/16/2016 Scanned Document [facility] Health Information Management [address] [place] [address] External, Provider Social History Tobacco Use Types [...] Telemedicine Cancer Center at [facility] [address] [facility] [address] [place], [place] [phone] Ronald Mills MD 240 [facility] [address] [place] [address] documented as of this encounter [...] as of this encounter Care Teams Plastic Card Grader Cardroom Relationship Specialty Start Date End Date Caitlyn Bowie MD 3400 [facility] 1 [place] [address] PCP - General Internal Medicine 05/06/21 Henry Kelly MD Pulmonary Department 175 [facility], [address] [place] [address] Physician Pulmonary Disease 09/06/17 06/22/20 documented as of this encounter
--- OUTSIDE RECORDS SUMMARY | 2024-11-03 14:35 | XMS_ITS | Encounter Summary ---
Author Organization [facility] and [facility] Address [address] [place] [address] Care Team Providers Care Executive Account Manager Name Role Phone Caitlyn Bowie MD Primary Care Provider +1- [phone] Encounter Details Date Type Department Care Team (Late st Contact Info) Description 06/27/2019 Scanned Document Onco-Oncology Program at [address] [place] [address] Norma Renee MD [address] [place] [address] 2 [place] [address] Social History Tobacco Use Types [...] 4:00 PM EDT Telemedicine Cancer Center at [address] [place], [place] [phone] Ronald Mills MD 240 [facility] A1 [place] [address] documented as of this encounter Visit Diagnoses Not on filedocumented in this encounter Additional Health Concerns Infection Onset Date Last Indicated Resolved Time COVID-19 03/05/2022 03/05/2022 03/15/2022 7:18 PM EDT Assessment Noted Time PHQ-9 Depression Total Score: 2 11/07/19 19 2:06 PM EDT documented as of this encounter Care Teams Executive Account Manager Relationship Specialty Start Date End Date Caitlyn Bowie MD 3400 [facility] 1 [place] [address] PCP - General Internal Medicine 05/06/21 Henry Kelly MD Pulmonary Department 175 [facility], [address] [place] [address] Physician Pulmonary Disease 09/06/17 06/22/20 documented as of this encounter
--- OUTSIDE RECORDS SUMMARY | 2024-11-03 14:35 | XMS_ITS | Encounter Summary ---
Author Organization [facility] and [facility] Address [address] [place] [address] Care Team Providers Care Lower School Music Teacher Name Role Phone Caitlyn Bowie MD Primary Care Provider +1- [phone] Encounter Details Date Type Department Care Team (Late st Contact Info) Description 06/27/2019 Scanned Document Onco-Oncology Program at [address] [place] [address] Norma Renee MD [address] [place] [address] 2 [place] [address] Social History Tobacco Use Types [...] 4:00 PM EDT Telemedicine Cancer Center at [address] [place], [place] [phone] Ronald Mills MD [address] [facility] [address] [place] [address] documented as of this encounter Visit Diagnoses Not on filedocumented in this encounter Additional Health Concerns Infection Onset Date Last Indicated Resolved Time COVID-19 03/05/2022 03/05/2022 03/15/2022 7:18 PM EDT Assessment Noted Time PHQ-9 Depression Total Score: 2 11/07/19 19 2:06 PM EDT documented as of this encounter Care Teams Lower School Music Teacher Relationship Specialty Start Date End Date Caitlyn Bowie MD 3400 [facility] 1 [place] [address] PCP - General Internal Medicine 05/06/21 Henry Kelly MD Pulmonary Department 175 [facility], [address] [place] [address] Physician Pulmonary Disease 09/06/17 06/22/20 documented as of this encounter
--- OUTSIDE RECORDS SUMMARY | 2024-11-03 14:35 | XMS_ITS | Encounter Summary ---
Author Organization [facility] [place] [facility] Address [address] [place] [address] Care Team Providers Care Dye House Wheel Operator Name Role Phone Caitlyn Bowie MD Primary Care Provider +1- [phone] Encounter Details Date Type Department Care Team (Late st Contact Info) Description 11/29/2019 Scanned Document [facility] Health Information Management [address] [place] [address] External, Provider Social History Tobacco Use Types [...] 4:00 PM EDT Telemedicine Cancer Center at [facility] [address] [facility] [address] [place], [place] [phone] Ronald Mills MD [address] [place] [address] [address] [place] [address] documented as of this encounter [...] as of this encounter Care Teams Dye House Wheel Operator Relationship Specialty Start Date End Date Caitlyn Bowie MD 34[address] [facility] 1 [place] [address] PCP - General Internal Medicine 05/06/21 Henry Kelly MD Pulmonary Department 175 [facility], [address] [place] [address] Physician Pulmonary Disease 09/06/17 06/22/20 documented as of this encounter
--- OUTSIDE RECORDS SUMMARY | 2024-11-03 14:35 | XMS_ITS | Encounter Summary ---
Author Organization [facility] Address [address] [place] [address] Care Team Providers Care Infection Control Practitioner Name Role Phone Caitlyn Bowie MD Primary Care Provider +1- [phone] Encounter Details Date Type Department Care Team (Late st Contact Info) Description 04/10/2021 Scanned Document INTERFACE DEFAULT [address] [place] [address] System, Provider Not In Social History Tobacco [...] Telemedicine Cancer Center at [facility] 240 [facility] [address] [place] [address] Ronald Mills MD [address] [place] [address] [address] [place] [address] documented as of this encounter [...] of this encounter Care Teams Infection Control Practitioner Relationship Specialty Start Date End Date Caitlyn Bowie MD [address] [address] PCP - General Internal Medicine 05/06/21 documented as of this encounter
--- OUTSIDE RECORDS SUMMARY | 2024-11-03 14:35 | XMS_ITS | Encounter Summary ---
Author Organization [facility] and [facility] Address [address] [place] [address] Care Team Providers Care Set Up / Operator Name Role Phone Caitlyn Bowie MD Primary Care Provider +1- [phone] Encounter Details Date Type Department Care Team (Late st Contact Info) Description 12/16/2016 Scanned Document [facility] Health Information Management [address] [place] [address] External, Provider Social History Tobacco Use Types [...] Center at [facility] [address] [facility] [address] [place], [place] [phone] Ronald Mills MD 240 [facility] [address] [place] [address] documented as of this encounter [...] documented as of this encounter Care Teams Set Up / Operator Relationship Specialty Start Date End Date Caitlyn Bowie MD 3400 [facility] 1 [place] [address] PCP - General Internal Medicine 05/06/21 Henry Kelly MD Pulmonary Department 175 [facility], [address] [place] [address] Physician Pulmonary Disease 09/06/17 06/22/20 documented as of this encounter
--- OUTSIDE RECORDS SUMMARY | 2024-11-03 14:35 | XMS_ITS | Encounter Summary ---
Author Organization [facility] and [facility] Address [address] [place] [address] Care Team Providers Care Business Machines Teacher Name Role Phone Caitlyn Bowie MD Primary Care Provider +1- [phone] Encounter Details Date Type Department Care Team (Late st Contact Info) Description 04/21/2021 Scanned Document INTERFACE DEFAULT [address] [place] [address] System, Provider Not In Social History Tobacco [...] Cancer Center at [facility] 240 [facility] Building [address] [place], [place] [phone] Ronald Mills MD [address] [place] [address] [address] [place] [address] documented as of this [...] Caitlyn Bowie MD [facility] [address] [address] PCP - General Internal Medicine 05/06/21 documented as of this encounter
--- OUTSIDE RECORDS SUMMARY | 2024-11-03 14:35 | XMS_ITS | Encounter Summary ---
Author Organization [facility] and [facility] Address [address] [place] [address] Care Team Providers Care Molding Machine Tender Name Role Phone Caitlyn Bowie MD Primary Care Provider +1- [phone] Encounter Details Date Type Department Care Team (Late st Contact Info) Description 09/07/2020 Scanned Document Cardiovascular Medicine at [address] [place] [phone] Norma Renee MD [address] [place] [phone] Social History Tobacco Use Types Packs/Day Years [...] 4:00 PM EDT Telemedicine Cancer Center at [address] [place] [address] Ronald Mills MD [address] [place] [address] [address] [place] [address] documented as of this encounter Visit Diagnoses Not on filedocumented in this encounter Additional Health Concerns Infection Onset Date Last Indicated Resolved Time COVID-19 03/05/2022 03/05/2022 03/15/2022 7:18 PM EDT Assessment Noted Time PHQ-9 Depression Total Score: 2 11/07/19 19 2:06 PM EDT documented as of this encounter Care Teams Molding Machine Tender Relationship Specialty Start Date End Date Caitlyn Bowie MD [address] [address] PCP - General Internal Medicine 05/06/21 documented as of this encounter
--- OUTSIDE RECORDS SUMMARY | 2024-11-03 14:35 | XMS_ITS | Encounter Summary ---
Author Organization [facility] and [facility] Address [address] [place] [phone] Care Team Providers Care Business Support Manager Name Role Phone Caitlyn Bowie MD Primary Care Provider [phone]- [phone] Encounter Details Date Type Department Care Team (Late st Contact Info) Description 08/16/2012 Abstract [facility] Health Information Management [address] [place] [id number] [place], Primary Care [address] [place] [address] Social History Tobacco Use Types Packs/Day Years [...] 4:00 PM EDT Telemedicine Cancer Center at [address] [place], [place] [id number] Ronald Mills MD [address] [facility] [address] [place] [address] documented as of this encounter Visit Diagnoses Not on filedocumented in this encounter Additional Health Concerns Infection Onset Date Last Indicated Resolved Time COVID-19 03/05/2022 03/05/2022 03/15/2022 7:18 PM EDT documented as of this encounter Care Teams Business Support Manager Relationship Specialty Start Date End Date Caitlyn Bowie MD [address] [facility] 1 [place] [address] PCP - General Internal Medicine 05/06/21 Henry Kelly MD Pulmonary Department [address] [place] [address], [address] [place] [address] Physician Pulmonary Disease 09/06/17 06/22/20 documented as of this encounter
--- OUTSIDE RECORDS SUMMARY | 2024-11-03 14:35 | XMS_ITS | Clinical Summary ---
Author Organization [facility] Address [address] [place] [address] Care Team Providers Care Professional Builder Name Role Phone Brennan Burnett MD Primary Care Provider [phone] Allergies Active Allergy Reactions Criticality Noted Date [...] age to complete this topic Care Teams Professional Builder Relationship Specialty Start Date End Date Brennan Burnett MD [address] [place] [address] PCP - General Internal Medicine 07/06/20
--- OUTSIDE RECORDS SUMMARY | 2024-11-03 14:35 | XMS_ITS | Encounter Summary ---
Author Organization [facility] and [facility] Address [address] [place] [address] Care Team Providers Care Corporate Travel Agent Name Role Phone Caitlyn Bowie MD Primary Care Provider [phone]- [phone] Encounter Details Date Type Department Care Team (Late st Contact Info) Description 04/27/2017 Scanned Document [facility] Health Information Management [address] [place] [phone] External, Provider Social History Tobacco Use Types [...] Center at [facility] [address] [facility] [address] [place], [place] [phone] Ronald Mills MD [address] [facility] [address] [place] [address] documented as of this encounter Visit Diagnoses Not on filedocumented in this encounter Additional Health Concerns Infection Onset Date Last Indicated Resolved Time COVID-19 03/05/2022 03/05/2022 03/15/2022 7:18 PM EDT documented as of this encounter Care Teams Corporate Travel Agent Relationship Specialty Start Date End Date Caitlyn Bowie MD [address] [facility] 1 [place] [address] PCP - General Internal Medicine 05/06/21 Henry Kelly MD Pulmonary Department [address] [facility], [address] [place] [address] Physician Pulmonary Disease 09/06/17 06/22/20 documented as of this encounter
--- OUTSIDE RECORDS SUMMARY | 2024-11-03 14:35 | XMS_ITS | Encounter Summary ---
Author Organization [facility] and [facility] Address [address] [place] [address] Care Team Providers Care Flume Ride Operator Name Role Phone Caitlyn Bowie MD Primary Care Provider [phone]- [phone] Encounter Details Date Type Department Care Team (Late st Contact Info) Description 12/16/2016 Scanned Document [facility] Health Information Management [address] [place] [address] External, Provider Social History Tobacco Use Types [...] 4:00 PM EDT Telemedicine Cancer Center at [facility] [address] [facility] [address] [place], [place] [phone] Ronald Mills MD [address] [facility] [address] [place] [address] documented as of this encounter [...] as of this encounter Care Teams Flume Ride Operator Relationship Specialty Start Date End Date Caitlyn Bowie MD [address] [facility] 1 [place] [address] PCP - General Internal Medicine 05/06/21 Henry Kelly MD Pulmonary Department 175 [facility], [address] [place] [address] Physician Pulmonary Disease 09/06/17 06/22/20 documented as of this encounter
--- OUTSIDE RECORDS SUMMARY | 2024-11-03 14:35 | XMS_ITS | Encounter Summary ---
Author Organization [facility] Address [address] [place] [address] Care Team Providers Care Stock Parts Inspector Name Role Phone Caitlyn Bowie MD Primary Care Provider [phone]- [phone] Encounter Details Date Type Department Care Team (Late st Contact Info) Description 04/26/2017 Scanned Document Cardiovascular Medicine at [address] [place] [phone] System, Provider Not In Social History Tobacco [...] [facility] Building [address] [place], [place] [phone] Ronald Mills MD [address] [facility] [address] [place] [address] documented as of this encounter [...] as of this encounter Care Teams Stock Parts Inspector Relationship Specialty Start Date End Date Caitlyn Bowie MD [address] [facility] [address] 1 [place] [address] PCP - General Internal Medicine 05/06/21 Henry Kelly MD Pulmonary Department [address] [facility], [address] [place] [address] Physician Pulmonary Disease 09/06/17 06/22/20 documented as of this encounter
--- OUTSIDE RECORDS SUMMARY | 2024-11-03 14:35 | XMS_ITS | Encounter Summary ---
Author Organization [facility] and [facility] Address [address] [place] [phone] Care Team Providers Care Machine Shop Instructor Name Role Phone Caitlyn Bowie MD Primary Care Provider [phone]- [phone] Encounter Details Date Type Department Care Team (Late st Contact Info) Description 04/11/2021 Scanned Document [facility] Health Information Management [address] [place] [phone] External, Provider Social History Tobacco Use Types [...] 4:00 PM EDT Telemedicine Cancer Center at [facility] [address] [facility] [address] [place], [place] [phone] Ronald Mills MD [address] [place] [address] [address] [place] [address] documented as of this encounter Visit Diagnoses Not on filedocumented in this encounter Additional Health Concerns Infection Onset Date Last Indicated Resolved Time COVID-19 03/05/2022 03/05/2022 03/15/2022 7:18 PM EDT Assessment Noted Time PHQ-9 Depression Total Score: 2 11/07/19 19 2:06 PM EDT documented as of this encounter Care Teams Machine Shop Instructor Relationship Specialty Start Date End Date Caitlyn Bowie MD [address] [address] PCP - General Internal Medicine 05/06/21 documented as of this encounter
--- OUTSIDE RECORDS SUMMARY | 2024-11-03 14:35 | XMS_ITS | Encounter Summary ---
Author Organization [facility] and [facility] Address [address] [place] [address] Care Team Providers Care Credit Control Clerk Name Role Phone Caitlyn Boiwe MD Primary Care Provider +1- [phone] Encounter Details Date Type Department Care Team (Late st Contact Info) Description 03/01/2017 Scanned Document Onco-Oncology Program at [address] [place] [address] Norma Renee MD [address] [place] [address] 2 [place] [phone] Social History Tobacco Use Types Packs/Day Years [...] 4:00 PM EDT Telemedicine Cancer Center at [address] [place] [address] Ronald Mills MD 240 [facility] A1 [place] [address] documented as of this encounter Visit Diagnoses Not on filedocumented in this encounter Additional Health Concerns Infection Onset Date Last Indicated Resolved Time COVID-19 03/05/2022 03/05/2022 03/15/2022 7:18 PM EDT documented as of this encounter Care Teams Credit Control Clerk Relationship Specialty Start Date End Date Caitlyn Bowie MD 3400 [facility] Max 1 [place] [address] PCP - General Internal Medicine 05/06/21 Henry Kelly MD Pulmonary Department 175 [facility], [address] [place] [address] Physician Pulmonary Disease 09/06/17 06/22/20 documented as of this encounter
--- OUTSIDE RECORDS SUMMARY | 2024-11-03 14:35 | XMS_ITS | Encounter Summary ---
Author Organization [facility] and [facility] Address 20 [place] [address] Care Team Providers Care Mid Level Developer Name Role Phone Caitlyn Bowie MD Primary Care Provider +1- [phone] Encounter Details Date Type Department Care Team (Late st Contact Info) Description 06/21/2012 Abstract Head & Neck Cancers Program at [address] [id number] Mikel Lloyd MD [address] [place] [phone] (Fax) Social History Tobacco Use Types Packs/Day [...] at [facility] 240 [facility] [address] [place] [address] Ronald Mills MD 240 [facility] Max [address]1 [place] [address] documented as of this encounter Visit Diagnoses Not on filedocumented in this encounter Additional Health Concerns Infection Onset Date Last Indicated Resolved Time COVID-19 03/05/2022 03/05/2022 03/15/2022 7:18 PM EDT documented as of this encounter Care Teams Mid Level Developer Relationship Specialty Start Date End Date Caitlyn Bowie MD 3400 [facility] 1 [place] [address] PCP - General Internal Medicine 05/06/21 Henry Kelly MD Pulmonary Department [address] [place] [address], [address] [place] [address] Physician Pulmonary Disease 09/06/17 06/22/20 documented as of this encounter
--- OUTSIDE RECORDS SUMMARY | 2024-11-03 14:35 | XMS_ITS | Encounter Summary ---
Author Organization [facility] Address [address] [place] [address] Care Team Providers Care Range Aide Name Role Phone Caitlyn Bowie MD Primary Care Provider +1- [phone] Encounter Details Date Type Department Care Team (Late st Contact Info) Description 02/21/2017 Scanned Document [facility] Health Information Management [address] [place] [address] External, Provider Social History Tobacco Use Types [...] 4:00 PM EDT Telemedicine Cancer Center at [facility] 240 [facility] Building [address] [place], [place] [phone] Ronald Mills MD 240 [facility] Max [address] [place] [address] documented as of this encounter [...] as of this encounter Care Teams Range Aide Relationship Specialty Start Date End Date Caitlyn Bowie MD 3400 [facility] Max 1 [place] [address] PCP - General Internal Medicine 05/06/21 Henry Kelly MD Pulmonary Department 175 [facility], [address] [place] [address] Physician Pulmonary Disease 09/06/17 06/22/20 documented as of this encounter
--- OUTSIDE RECORDS SUMMARY | 2024-11-03 14:35 | XMS_ITS | Encounter Summary ---
Author Organization [facility] and [facility] Address [address] [place] [address] Care Team Providers Care Director Design Name Role Phone Caitlyn Bowie MD Primary Care Provider +1- [phone] Encounter Details Date Type Department Care Team (Late st Contact Info) Description 01/28/2013 Scanned Document Thoracic Oncology Program at [address] [address] Solo Henry MD [address] [place] [phone] Social History Tobacco Use Types Packs/Day [...] 4:00 PM EDT Telemedicine [facility] at [facility] 240 [facility] Building [address] [place], [place] [address] Ronald Mills MD 240 [facility] Max [address] [place] [address] documented as of this encounter Visit Diagnoses Not on filedocumented in this encounter Additional Health Concerns Infection Onset Date Last Indicated Resolved Time COVID-19 03/05/2022 03/05/2022 03/15/2022 7:18 PM EDT documented as of this encounter Care Teams Director Design Relationship Specialty Start Date End Date Caitlyn Bowie MD 3400 [facility] Max 1 [place] [address] PCP - General Internal Medicine 05/06/21 Henry Kelly MD Pulmonary Department 175 [facility], [address] [place] [address] Physician Pulmonary Disease 09/06/17 06/22/20 documented as of this encounter
--- OUTSIDE RECORDS SUMMARY | 2024-11-03 14:35 | XMS_ITS | Encounter Summary ---
Author Organization [facility] and [facility] Address [address] [place] [address] Care Team Providers Care Dinkey Locomotive Operator Name Role Phone Caitlyn Bowie MD Primary Care Provider +1- [phone] Encounter Details Date Type Department Care Team (Late st Contact Info) Description 12/16/2016 Scanned Document [facility] Health Information Management [address] [place] [address] External, Provider Social History Tobacco Use Types [...] 4:00 PM EDT Telemedicine Cancer Center at [facility] 240 [facility] Building [address] [place], [place] [phone] Ronald Mills MD 240 [facility] A1 [place] [address] documented as of this encounter [...] documented as of this encounter Care Teams Dinkey Locomotive Operator Relationship Specialty Start Date End Date Caitlyn Bowie MD [facility] 1 [place] [address] PCP - General Internal Medicine 05/06/21 Henry Kelly MD Pulmonary Department 175 [facility], [address] [place] [address] Physician Pulmonary Disease 09/06/17 06/22/20 documented as of this encounter
--- OUTSIDE RECORDS SUMMARY | 2024-11-03 14:35 | XMS_ITS | Encounter Summary ---
Author Organization [facility] Address 20 [place] [address] Care Team Providers Care Film Crew Member Name Role Phone Caitlyn Bowie MD Primary Care Provider +1- [phone] Encounter Details Date Type Department Care Team (Late st Contact Info) Description 01/28/2013 Scanned Document Thoracic Oncology Program at [address] [address] Solo Henry MD [address] [place] [phone] Social History Tobacco Use Types Packs/Day [...] Cancer Center at [facility] 240 [facility] Building [address] [place], [place] [address] Ronald Mills MD 240 [facility] Max [address]1 [place] [address] documented as of this encounter Visit Diagnoses Not on filedocumented in this encounter Additional Health Concerns Infection Onset Date Last Indicated Resolved Time COVID-19 03/05/2022 03/05/2022 03/15/2022 7:18 PM EDT documented as of this encounter Care Teams Film Crew Member Relationship Specialty Start Date End Date Caitlyn Bowie MD 3400 [facility] Max 1 [place] [address] PCP - General Internal Medicine 05/06/21 Henry Kelly MD Pulmonary Department 175 [facility], [address] [place] [address] Physician Pulmonary Disease 09/06/17 06/22/20 documented as of this encounter
--- OUTSIDE RECORDS SUMMARY | 2024-11-03 14:35 | XMS_ITS | Encounter Summary ---
Author Organization [facility] Address [address] [place] [address] Care Team Providers Care Lode Miner Blasting Name Role Phone Caitlyn Bowie MD Primary Care Provider +1- [phone] Encounter Details Date Type Department Care Team (Late st Contact Info) Description 04/13/2021 Scanned Document INTERFACE DEFAULT [address] [place] [address] System, Provider Not In Social History Tobacco [...] Cancer Center at [facility] 240 [facility] Building [address] [place], [place] [phone] Ronald Mills MD [address] [place] [address] [address] [place] [address] documented as of this encounter [...] documented as of this encounter Care Teams Lode Miner Blasting Relationship Specialty Start Date End Date Caitlyn Bowie MD [address] [address] PCP - General Internal Medicine 05/06/21 documented as of this encounter
--- OUTSIDE RECORDS SUMMARY | 2024-11-03 14:35 | XMS_ITS | Encounter Summary ---
Author Organization [facility] Address [address] [place] [address] Care Team Providers Care Utility Teller Name Role Phone Caitlyn Bowie MD Primary Care Provider +1- [phone] Encounter Details Date Type Department Care Team (Late st Contact Info) Description 06/27/2019 Scanned Document Onco-Oncology Program at [address] [place] [address] Norma Renee MD [address] [place] [address] 2 [place] [address] Social History Tobacco Use Types [...] 4:00 PM EDT Telemedicine Cancer Center at [address] [place], [place] [phone] Ronald Mills MD 240 [facility] A1 [place] [address] documented as of this encounter Visit Diagnoses Not on filedocumented in this encounter Additional Health Concerns Infection Onset Date Last Indicated Resolved Time COVID-19 03/05/2022 03/05/2022 03/15/2022 7:18 PM EDT Assessment Noted Time PHQ-9 Depression Total Score: 2 11/07/19 19 2:06 PM EDT documented as of this encounter Care Teams Utility Teller Relationship Specialty Start Date End Date Caitlyn Bowie MD 3400 [facility] 1 [place] [address] PCP - General Internal Medicine 05/06/21 Henry Kelly MD Pulmonary Department 175 [facility], [address] [place] [address] Physician Pulmonary Disease 09/06/17 06/22/20 documented as of this encounter
--- OUTSIDE RECORDS SUMMARY | 2024-11-03 14:35 | XMS_ITS | Encounter Summary ---
Author Organization [facility] and [facility] Address [address] [place] [address] Care Team Providers Care Mock Up Maker Name Role Phone Caitlyn Bowie MD Primary Care Provider +1- [phone] Encounter Details Date Type Department Care Team (Late st Contact Info) Description 07/26/2012 Abstract [facility] Health Information Management [address] [place] [address] [place], Primary Care [address] [place] [address] Social History Tobacco Use Types Packs/Day Years [...] 4:00 PM EDT Telemedicine Cancer Center at [address] [place], [place] [address] Ronald Mills MD [address] [place] [address] documented as of this encounter Visit Diagnoses Not on filedocumented in this encounter Additional Health Concerns Infection Onset Date Last Indicated Resolved Time COVID-19 03/05/2022 03/05/2022 03/15/2022 7:18 PM EDT documented as of this encounter Care Teams Mock Up Maker Relationship Specialty Start Date End Date Caitlyn Bowie MD 3400 [facility] 1 [place] [address] PCP - General Internal Medicine 05/06/21 Henry Kelly MD Pulmonary Department 175 [facility], [address] [place] [address] Physician Pulmonary Disease 09/06/17 06/22/20 documented as of this encounter
--- OUTSIDE RECORDS SUMMARY | 2024-11-03 14:35 | XMS_ITS | Encounter Summary ---
Author Organization [facility] Address [address] [place] [address] Care Team Providers Care Front Desk Specialist Name Role Phone Caitlyn Bowie MD Primary Care Provider +1- [phone] Encounter Details Date Type Department Care Team (Late st Contact Info) Description 04/22/2021 Scanned Document INTERFACE DEFAULT [address] [place] [address] System, Provider Not In Social History Tobacco [...] 4:00 PM EDT Telemedicine Cancer Center at [place] [facility] 240 [facility] Building [address] [place], [place] [address] Ronald Mills MD [address] [place] [address] [address] [place] [address] documented as of this encounter [...] of this encounter Care Teams Front Desk Specialist Relationship Specialty Start Date End Date Caitlyn Bowie MD [facility]0 [address] [address] PCP - General Internal Medicine 05/06/21 documented as of this encounter
--- OUTSIDE RECORDS SUMMARY | 2024-11-03 14:35 | XMS_ITS | Encounter Summary ---
Author Organization [facility] and [facility] Address [address] [place] [address] Care Team Providers Care Data Warehousing Engineer Name Role Phone Caitlyn Bowie MD Primary Care Provider +1- [phone] Encounter Details Date Type Department Care Team (Late st Contact Info) Description 12/03/2019 Scanned Document [facility] Health Information Management [address] [place] [address] External, Provider Social History Tobacco Use Types [...] at [facility] 240 [facility] Building [address] [place] [address] Ronald Mills MD [address] [place] [address] [address]1 [place] [address] documented as of this encounter Visit Diagnoses Not on filedocumented in this encounter Additional Health Concerns Infection Onset Date Last Indicated Resolved Time COVID-19 03/05/2022 03/05/2022 03/15/2022 7:18 PM EDT Assessment Noted Time PHQ-9 Depression Total Score: 2 11/07/19 19 2:06 PM EDT documented as of this encounter Care Teams Data Warehousing Engineer Relationship Specialty Start Date End Date Caitlyn Bowie MD 3400 [facility] 1 [place] [address] PCP - General Internal Medicine 05/06/21 Henry Kelly MD Pulmonary Department 175 [facility], [address] [place] [address] Physician Pulmonary Disease 09/06/17 06/22/20 documented as of this encounter
--- OUTSIDE RECORDS SUMMARY | 2024-11-03 14:35 | XMS_ITS | Encounter Summary ---
Author Organization [facility] and [facility] Address [address] [place] [address] Care Team Providers Care Deal Architect Name Role Phone Caitlyn Bowie MD Primary Care Provider +1- [phone] Encounter Details Date Type Department Care Team (Late st Contact Info) Description 07/01/2019 Scanned Document Onco-Oncology Program at [address] [place] [address] Norma Renee MD [address] [place] [address] 2 [place] [phone] Social History Tobacco Use Types Packs/Day Years [...] 4:00 PM EDT Telemedicine Cancer Center at [address] [place], [place] [address] Ronald Mills MD 240 [facility] A1 [place] [address] documented as of this encounter Visit Diagnoses Not on filedocumented in this encounter Additional Health Concerns Infection Onset Date Last Indicated Resolved Time COVID-19 03/05/2022 03/05/2022 03/15/2022 7:18 PM EDT Assessment Noted Time PHQ-9 Depression Total Score: 2 11/07/19 19 2:06 PM EDT documented as of this encounter Care Teams Deal Architect Relationship Specialty Start Date End Date Caitlyn Bowie MD 3400 [facility] 1 [place] [address] PCP - General Internal Medicine 05/06/21 Henry Kelly MD Pulmonary Department 175 [facility], [address] [place] [address] Physician Pulmonary Disease 09/06/17 06/22/20 documented as of this encounter
--- OUTSIDE RECORDS SUMMARY | 2024-11-03 14:35 | XMS_ITS | Encounter Summary ---
Author Organization [facility] Address [address] [place] [address] Care Team Providers Care Project Product Manager Name Role Phone Caitlyn Bowie MD Primary Care Provider +1- [phone] Encounter Details Date Type Department Care Team (Late st Contact Info) Description 04/02/2021 Scanned Document INTERFACE DEFAULT [address] [place] [address] System, Provider Not In Social History Tobacco [...] – [facility] 240 [facility] Building [address] [place], [place] [address] Ronald Mills MD [address] [place] [address] Max [address]1 [place] [address] documented as of this encounter [...] as of this encounter Care Teams Project Product Manager Relationship Specialty Start Date End Date Caitlyn Bowie MD [address] [address] PCP - General Internal Medicine 05/06/21 documented as of this encounter
--- OUTSIDE RECORDS SUMMARY | 2024-11-03 14:35 | XMS_ITS | Encounter Summary ---
Author Organization [facility] Address [address] [place] [address] Care Team Providers Care Vault Installer Name Role Phone Caitlyn Bowie MD Primary Care Provider +1- [phone] Encounter Details Date Type Department Care Team (Late st Contact Info) Description 04/11/2021 Scanned Document INTERFACE DEFAULT [address] [place] [address] System, Provider Not In Social History Tobacco [...] [facility] 240 [facility] Building [address] [place], [place] [address] Ronald Mills MD [address] [place] [address] [address]1 [place] [address] documented as of this encounter [...] documented as of this encounter Care Teams Vault Installer Relationship Specialty Start Date End Date Caitlyn Bowie MD [address] [address] PCP - General Internal Medicine 05/06/21 documented as of this encounter
--- OUTSIDE RECORDS SUMMARY | 2024-11-03 14:35 | XMS_ITS | Encounter Summary ---
Author Organization [facility] and [facility] Address 20 [place] [address] Care Team Providers Care Medical Record Librarians Teacher Name Role Phone Caitlyn Bowie MD Primary Care Provider +1- [phone] Encounter Details Date Type Department Care Team (Late st Contact Info) Description 08/29/2019 Scanned Document Cancer Center at [address] [place] [address] [address] External, Provider Social History Tobacco Use Types [...] [facility] at [facility] 240 [facility] Building [address] [place], [place] [address] Ronald Mills MD [address] [place] [address] [address]1 [place] [address] documented as of this encounter [...] of this encounter Care Teams Medical Record Librarians Teacher Relationship Specialty Start Date End Date Caitlyn Bowie MD 3400 [facility] 1 [place] [address] PCP - General Internal Medicine 05/06/21 Henry Kelly MD Pulmonary Department 175 [facility], [address] [place] [address] Physician Pulmonary Disease 09/06/17 06/22/20 documented as of this encounter
--- OUTSIDE RECORDS SUMMARY | 2024-11-03 14:35 | XMS_ITS | Encounter Summary ---
Author Organization [facility] [place] [facility] Address [address] [place] [address] Care Team Providers Care Polysomnographer Name Role Phone Caitlyn Bowie MD Primary Care Provider +1- [phone] Encounter Details Date Type Department Care Team (Late st Contact Info) Description 08/21/2017 Scanned Document [facility] Health Information Management [address] [place] [address] External, Provider Social History Tobacco Use Types [...] Telemedicine Cancer Center at [facility] 240 [facility] Building [address] [place], [place] [address] Ronald Mills MD [address] [place] [address] [address]1 [place] [address] documented as of this encounter [...] documented as of this encounter Care Teams Polysomnographer Relationship Specialty Start Date End Date Caitlyn Bowie MD 3400 [facility] 1 [place] [address] PCP - General Internal Medicine 05/06/21 Henry Kelly MD Pulmonary Department 175 [facility], [address] [place] [address] Physician Pulmonary Disease 09/06/17 06/22/20 documented as of this encounter
--- OUTSIDE RECORDS SUMMARY | 2024-11-03 14:35 | XMS_ITS | Encounter Summary ---
Author Organization [facility] and [facility] Address [address] [place] [address] Care Team Providers Care Suit Maker Name Role Phone Caitlyn Bowie MD Primary Care Provider +1- [phone] Encounter Details Date Type Department Care Team (Late st Contact Info) Description 04/18/2013 Documentation Hematology Program at [address] [address] Isis Ragland RN Social History Tobacco Use [...] 4:00 PM EDT Telemedicine Cancer Center at [facility] 240 [facility] Building [address] [place], [place] [address] Ronald Mills MD 240 [facility] A1 [place] [address] documented as of this encounter Visit Diagnoses Not on filedocumented in this encounter Additional Health Concerns Infection Onset Date Last Indicated Resolved Time COVID-19 03/05/2022 03/05/2022 03/15/2022 7:18 PM EDT documented as of this encounter Care Teams Suit Maker Relationship Specialty Start Date End Date Caitlyn Bowie MD 3400 [facility] 1 [place] [address] PCP - General Internal Medicine 05/06/21 Henry Kelly MD Pulmonary Department 175 [facility], [address] [place] [address] Physician Pulmonary Disease 09/06/17 06/22/20 documented as of this encounter
--- OUTSIDE RECORDS SUMMARY | 2024-11-03 14:35 | XMS_ITS | Encounter Summary ---
Author Organization [facility] and [facility] Address [address] [place] [address] Care Team Providers Care High Lift Driver Name Role Phone Caitlyn Bowie MD Primary Care Provider +1- [phone] Encounter Details Date Type Department Care Team (Latest Contact Info) Description 04/15/2013 Transcribed Orders [facility] [address] [place] [address] Tian Atwood MD 280 [facility] 102 [place] [address] Unspecified hypothyroidism (Primary Dx) Social [...] at [facility] 240 [facility] Building [address] [place] [address] Ronald Mills MD 240 [facility] A1 [place] [address] documented as of this encounter Results * Copper, serum total (YH) (04/15/2013 4:31 PM EDT) Copper, Serum Total SEE BELOW [facility] Comment: Test ?Result ? Flag ??Unit ?RefValue Copper, S ? 1.35 ? mcg/mL ??0.75-1.45 04/15/2013 4:31 PM EDT us Tian Atwood MD LAB BLOOD ORDERABLES Final R esult Performing Organization Address City/State/[facility] Co de Phone Number [facility] [address] [place] [address] documented in this encounter Visit Diagnoses Diagnosis Unspecified hypothyroidism- Primary documented in this encounter Additional Health Concerns Infection Onset Date Last Indicated Resolved Time COVID-19 03/05/2022 03/05/2022 03/15/2022 7:18 PM EDT documented as of this encounter Care Teams High Lift Driver Relationship Specialty Start Date End Date Caitlyn Bowie MD 3400 [facility] 1 [place] [address] PCP - General Internal Medicine 05/06/21 Henry Kelly MD Pulmonary Department 175 [facility], [address] [place] [address] Physician Pulmonary Disease 09/06/17 06/22/20 documented as of this encounter
--- OUTSIDE RECORDS SUMMARY | 2024-11-03 14:35 | XMS_ITS | Encounter Summary ---
Author Organization [facility] and [facility] Address [address] [place] [address] Care Team Providers Care Pickle Sorter Name Role Phone Caitlyn Bowie MD Primary Care Provider +1- [phone] Encounter Details Date Type Department Care Team (Late st Contact Info) Description 01/22/2020 Scanned Document Lab for [facility] 800 [place] [address] Kerwin Menjivar MD 260 [facility] 3 [place] [address] Social History Tobacco Use Types [...] 4:00 PM EDT Telemedicine Cancer Center at [address] [place] [address] Ronald Mills MD 240 [facility] Max [address]1 [place] [address] documented as of this encounter [...] End Date Caitlyn Bowie MD [address] [address] PCP - General Internal Medicine 05/06/21 Henry Kelly MD Pulmonary Department [address] [place] [address], [address] [place] [address] Physician Pulmonary Disease 09/06/17 06/22/20 documented as of this encounter
--- OUTSIDE RECORDS SUMMARY | 2024-11-03 14:35 | XMS_ITS | Encounter Summary ---
Author Organization [facility] and [facility] Address [address] [place] [address] Care Team Providers Care Mixed Animal Veterinarian Name Role Phone Caitlyn Bowie MD Primary Care Provider +1- [phone] Encounter Details Date Type Department Care Team (Late Contact Info) Description 09/09/2020 Scanned Document [facility] Health Information Management [address] [place] [address] External, Provider Social History Tobacco Use Types [...] at [facility] 240 [facility] Building [address] [place], [place] [phone] Ronald Mills MD [address] [place] [address] [address]1 [place] [address] documented as of this encounter [...] documented as of this encounter Care Teams Mixed Animal Veterinarian Relationship Specialty Start Date End Date Caitlyn Bowie MD [address] [address] PCP - General Internal Medicine 05/06/21 documented as of this encounter
--- OUTSIDE RECORDS SUMMARY | 2024-11-03 14:36 | XMS_ITS | Encounter Summary ---
Author Organization [facility] and [facility] Address [address] [place] [address] Care Team Providers Care Hospital Education Coordinator Name Role Phone Caitlyn Bowie MD Primary Care Provider +1- [phone] Encounter Details Date Type Department Care Team (Late st Contact Info) Description 10/16/2013 Scanned Document [facility] [address] [place] [address], 2nd floor [facility], [address] [place], [place] [address] Suzy Kong MD [address] [place] [address] Social History Tobacco Use Types Packs/Day [...] 4:00 PM EDT Telemedicine Cancer Center at [address] [place] [address] Ronald Mills MD 240 [facility] A1 [place] [address] documented as of this encounter Visit Diagnoses Not on filedocumented in this encounter Additional Health Concerns Infection Onset Date Last Indicated Resolved Time COVID-19 03/05/2022 03/05/2022 03/15/2022 7:18 PM EDT documented as of this encounter Care Teams Hospital Education Coordinator Relationship Specialty Start Date End Date Caitlyn Bowie MD 3400 [facility] Max 1 [place] [address] PCP - General Internal Medicine 05/06/21 Henry Kelly MD Pulmonary Department 175 [facility], [address] [place] [address] Physician Pulmonary Disease 09/06/17 06/22/20 documented as of this encounter
--- OUTSIDE RECORDS SUMMARY | 2024-11-03 14:36 | XMS_ITS | Encounter Summary ---
Author Organization [facility] Address [address] [place] [address] Care Team Providers Care Machine Operators Name Role Phone Caitlyn Bowie MD Primary Care Provider +1- [phone] Encounter Details Date Type Department Care Team (Late st Contact Info) Description 03/23/2021 Scanned Document INTERFACE DEFAULT [address] [place] [address] System, Provider Not In Social History Tobacco [...] [facility] 240 [facility] Building [address] [place] [address] Ronald Mills MD [address] [place] [address] [address] [place] [address] documented as of this encounter [...] as of this encounter Care Teams Machine Operators Relationship Specialty Start Date End Date Caitlyn Bowie MD [address] [address] PCP - General Internal Medicine 05/06/21 documented as of this encounter
--- OUTSIDE RECORDS SUMMARY | 2024-11-03 14:36 | XMS_ITS | Encounter Summary ---
Author Organization [facility] and [facility] Address [address] [place] [address] Care Team Providers Care Medical Claims Assistant Name Role Phone Caitlyn Bowie MD Primary Care Provider +1- [phone] Encounter Details Date Type Department Care Team (Late st Contact Info) Description 06/25/2015 Scanned Document [facility] Health Information Management [address] [place] [address] External, Provider Social History Tobacco Use Types [...] 4:00 PM EDT Telemedicine [facility] at [facility] 240 [facility] Building [address] [place], [place] [address] Ronald Mills MD 240 [facility] A1 [place] [address] documented as of this encounter Visit Diagnoses Not on filedocumented in this encounter Additional Health Concerns Infection Onset Date Last Indicated Resolved Time COVID-19 03/05/2022 03/05/2022 03/15/2022 7:18 PM EDT documented as of this encounter Care Teams Medical Claims Assistant Relationship Specialty Start Date End Date Caitlyn Bowie MD 3400 [facility] 1 [place] [address] PCP - General Internal Medicine 05/06/21 Henry Kelly MD Pulmonary Department 175 [facility], [address] [place] [address] Physician Pulmonary Disease 09/06/17 06/22/20 documented as of this encounter
--- OUTSIDE RECORDS SUMMARY | 2024-11-03 14:36 | XMS_ITS | Encounter Summary ---
Author Organization [facility] and [facility] Address [address] [place] [address] Care Team Providers Care Guide Domestic Tour Name Role Phone Caitlyn Bowie MD Primary Care Provider +1- [phone] Encounter Details Date Type Department Care Team (Late st Contact Info) Description 01/26/2018 Scanned Document [facility] Health Information Management [address] [place] [address] External, Provider Social History Tobacco Use Types [...] Department Care Team (Late Contact Info) Description 04/25/2025 4:00 PM EDT Telemedicine [facility] at [facility] 240 [facility] Building [address] [place], [place] [address] Ronald Mills MD 240 [facility] [address]1 [place] [address] documented as of this encounter Visit Diagnoses Not on filedocumented in this encounter Additional Health Concerns Infection Onset Date Last Indicated Resolved Time COVID-19 03/05/2022 03/05/2022 03/15/2022 7:18 PM EDT documented as of this encounter Care Teams Guide Domestic Tour Relationship Specialty Start Date End Date Caitlyn Bowie MD 3400 [facility] 1 [place] [address] PCP - General Internal Medicine 05/06/21 Hnery Kelly MD Pulmonary Department 175 [facility], [address] [place] [address] Physician Pulmonary Disease 09/06/17 06/22/20 documented as of this encounter
--- OUTSIDE RECORDS SUMMARY | 2024-11-03 14:36 | XMS_ITS | Encounter Summary ---
Author Organization [facility] and [facility] Address [address] [place] [address] Care Team Providers Care Religious Healer Name Role Phone Caitlyn Bowie MD Primary Care Provider +1- [phone] Encounter Details Date Type Department Care Team (Late st Contact Info) Description 01/07/2014 Documentation [facility] [address] [place] [address] Shilpi Ibarra [address] [place] [address] Social History Tobacco Use Types Packs/Day Years [...] [facility] 240 [facility] Building [address] [place], [place] [address] Ronald Mills MD [address] [place] [address] documented as of this encounter Visit Diagnoses Not on filedocumented in this encounter Additional Health Concerns Infection Onset Date Last Indicated Resolved Time COVID-19 03/05/2022 03/05/2022 03/15/2022 7:18 PM EDT documented as of this encounter Care Teams Religious Healer Relationship Specialty Start Date End Date Caitlyn Bowie MD [address] [place] [address] PCP - General Internal Medicine 05/06/21 Henry eKlly MD Pulmonary Department 175 [facility], [address] [place] [address] Physician Pulmonary Disease 09/06/17 06/22/20 documented as of this encounter
--- OUTSIDE RECORDS SUMMARY | 2024-11-03 14:36 | XMS_ITS | Encounter Summary ---
Author Organization [facility] and [facility] Address [address] [place] [address] Care Team Providers Care Driller Operator Name Role Phone Caitlyn Bowie MD Primary Care Provider +1- [phone] Encounter Details Date Type Department Care Team (Late Contact Info) Description 01/27/2021 Scanned Document Cancer Center at [address] [address] External, Provider Social History Tobacco Use Types [...] at [facility] 240 [facility] Building [address] [place], [place] [address] Ronald Mills MD [address] [place] [address] [address] [place] [address] documented as of this encounter [...] as of this encounter Care Teams Driller Operator Relationship Specialty Start Date End Date Caitlyn Bowie MD [address] [address] PCP - General Internal Medicine 05/06/21 documented as of this encounter
--- OUTSIDE RECORDS SUMMARY | 2024-11-03 14:36 | XMS_ITS | Encounter Summary ---
Author Organization [facility] and [facility] Address [address] [place] [address] Care Team Providers Care Sound Mixer Name Role Phone Caitlyn Bowie MD Primary Care Provider +1- [phone] Encounter Details Date Type Department Care Team (Late st Contact Info) Description 09/01/2017 Scanned Document [facility] Health Information Management [address] [place] [address] External, Provider Social History Tobacco Use Types [...] [facility] 240 [facility] Building [address] [place], [place] [address] Ronald Mills MD [address] [place] [address] [address]1 [place] [address] documented as of this encounter [...] documented as of this encounter Care Teams Sound Mixer Relationship Specialty Start Date End Date Caitlyn Bowie MD [facility] 1 [place] [address] PCP - General Internal Medicine 05/06/21 Henry Kelly MD Pulmonary Department 175 [facility], [address] [place] [address] Physician Pulmonary Disease 09/06/17 06/22/20 documented as of this encounter
--- OUTSIDE RECORDS SUMMARY | 2024-11-03 14:36 | XMS_ITS | Encounter Summary ---
Author Organization [facility] and [facility] Address [address] [place] [address] Care Team Providers Care Laundry Machine Mechanic Name Role Phone Caitlyn Bowie MD Primary Care Provider +1- [phone] Encounter Details Date Type Department Care Team ([facility] st Contact Info) Description 08/26/2014 Documentation [facility] [address] [place] [address] Shilpi Ibarra [address] [place] [address] Social History Tobacco Use Types Packs/Day Years [...] from the original note were not included. [facility] Progress Note This is a 69 y.o. female who was provided services by [facility]. Service Provided By:: Shilpi Ibarra Patient Status: return Length of Appointment: 60 minutes documented in this encounter Plan of Treatment Upcoming Encounters Date Type Department Care Team ([facility] st Contact Info) Description 04/25/2025 4:00 PM EDT Telemedicine Cancer Center at [facility] 240 [facility] Building [address] [place] [address] Ronald Mills MD 240 [facility] Max [address] [place] [address] documented as of this encounter Visit Diagnoses Not on filedocumented in this encounter Additional Health Concerns Infection Onset Date Last Indicated Resolved Time COVID-19 03/05/2022 03/05/2022 03/15/2022 7:18 PM EDT documented as of this encounter Care Teams Laundry Machine Mechanic Relationship Specialty Start Date End Date Caitlyn Bowie MD 3400 [facility] 1 [place] [address] PCP - General Internal Medicine 05/06/21 Henry Kelly MD Pulmonary Department 175 [facility], [address] [place] [address] Physician Pulmonary Disease 09/06/17 06/22/20 documented as of this encounter
--- OUTSIDE RECORDS SUMMARY | 2024-11-03 14:36 | XMS_ITS | Encounter Summary ---
Author Organization [facility] Address [address] [place] [address] Care Team Providers Care Wood Polisher Name Role Phone Caitlyn Bowie MD Primary Care Provider +1- [phone] Encounter Details Date Type Department Care Team (Late st Contact Info) Description 02/15/2021 Scanned Document INTERFACE DEFAULT [address] [place] [address] System, Provider Not In Social History Tobacco [...] [facility] 240 [facility] Building [address] [place] [address] Ronald Mills MD [address] [place] [address] [address] [place] [address] documented as of this encounter Visit Diagnoses Not on filedocumented in this encounter Additional Health Concerns Infection Onset Date Last Indicated Resolved Time COVID-19 03/05/2022 03/05/2022 03/15/2022 7:18 PM EDT Assessment Noted Time PHQ-9 Depression Total Score: 2 11/07/19 19 2:06 PM EDT documented as of this encounter Care Teams Wood Polisher Relationship Specialty Start Date End Date Caitlyn Bowie MD [address] [address] PCP - General Internal Medicine 05/06/21 documented as of this encounter
--- OUTSIDE RECORDS SUMMARY | 2024-11-03 14:36 | XMS_ITS | Encounter Summary ---
Author Organization [facility] Address [address] [place] [address] Care Team Providers Care Shopping Inspector Name Role Phone Caitlyn Bowie MD Primary Care Provider +1- [phone] Encounter Details Date Type Department Care Team (Late st Contact Info) Description 02/08/2021 Scanned Document INTERFACE DEFAULT [address] [place] [address] System, Provider Not In Social History Tobacco [...] [facility] at [facility] 240 [facility] Building [address] [place] [address] Ronald Mills MD [address] [place] [address] [address]1 [place] [address] documented as of this encounter Visit Diagnoses Not on filedocumented in this encounter Additional Health Concerns Infection Onset Date Last Indicated Resolved Time COVID-19 03/05/2022 03/05/2022 03/15/2022 7:18 PM EDT Assessment Noted Time PHQ-9 Depression Total Score: 2 11/07/19 19 2:06 PM EDT documented as of this encounter Care Teams Shopping Inspector Relationship Specialty Start Date End Date Caitlyn Bowie MD [address] [address] PCP - General Internal Medicine 05/06/21 documented as of this encounter
--- OUTSIDE RECORDS SUMMARY | 2024-11-03 14:36 | XMS_ITS | Encounter Summary ---
Author Organization [facility] Address [address] [place] [address] Care Team Providers Care Record Tabulating Clerk Name Role Phone Caitlyn Bowie MD Primary Care Provider +1- [phone] Encounter Details Date Type Department Care Team (Late st Contact Info) Description 04/28/2015 Scanned Document [facility] Health Information Management [address] [place] [address] External, Provider Social History Tobacco Use Types [...] [facility] 240 [facility] Building [address] [place], [place] [address] Ronald Mills MD 240 [facility] A1 [place] [address] documented as of this encounter Visit Diagnoses Not on filedocumented in this encounter Additional Health Concerns Infection Onset Date Last Indicated Resolved Time COVID-19 03/05/2022 03/05/2022 03/15/2022 7:18 PM EDT documented as of this encounter Care Teams Record Tabulating Clerk Relationship Specialty Start Date End Date Caitlyn Bowie MD 3400 [facility] 1 [place] [address] PCP - General Internal Medicine 05/06/21 Henry Kelly MD Pulmonary Department 175 [facility], [address] [place] [address] Physician Pulmonary Disease 09/06/17 06/22/20 documented as of this encounter
--- OUTSIDE RECORDS SUMMARY | 2024-11-03 14:36 | XMS_ITS | Encounter Summary ---
Author Organization [facility] Address [address] [place] [address] Care Team Providers Care Mobile Unit Assistant Name Role Phone Caitlyn Bowie MD Primary Care Provider +1- [phone] Encounter Details Date Type Department Care Team (Late st Contact Info) Description 02/28/2021 Scanned Document INTERFACE DEFAULT [address] [place] [address] System, Provider Not In Social History Tobacco [...] [facility] 240 [facility] Building [address] [place] [address] Ronald Mills MD [address] [place] [address] [address] [place] [address] documented as of this encounter [...] as of this encounter Care Teams Mobile Unit Assistant Relationship Specialty Start Date End Date Caitlyn Bowie MD [address] [address] PCP - General Internal Medicine 05/06/21 documented as of this encounter
--- OUTSIDE RECORDS SUMMARY | 2024-11-03 14:36 | XMS_ITS | Encounter Summary ---
Author Organization [facility] Address [address] [place] [address] Care Team Providers Care Roll On Man Name Role Phone Caitlyn Bowie MD Primary Care Provider +1- [phone] Encounter Details Date Type Department Care Team (Late st Contact Info) Description 05/14/2015 Scanned Document [facility] Health Information Management [address] [place] [address] External, Provider Social History Tobacco Use Types [...] [facility] 240 [facility] Building [address] [place], [place] [phone] Ronald Mills MD 240 [facility] A1 [place] [address] documented as of this encounter Visit Diagnoses Not on filedocumented in this encounter Additional Health Concerns Infection Onset Date Last Indicated Resolved Time COVID-19 03/05/2022 03/05/2022 03/15/2022 7:18 PM EDT documented as of this encounter Care Teams Roll On Man Relationship Specialty Start Date End Date Caitlyn Bowie MD 3400 [facility] 1 [place] [address] PCP - General Internal Medicine 05/06/21 Henry Kelly MD Pulmonary Department 175 [facility], [address] [place] [address] Physician Pulmonary Disease 09/06/17 06/22/20 documented as of this encounter
--- OUTSIDE RECORDS SUMMARY | 2024-11-03 14:36 | XMS_ITS | Clinical Summary ---
Author Organization 175 [facility] Address 175 [place] [address] Phone Care Team Providers Care Vp Data Name Role Phone Brennan Burnett Primary Care Provider [phone] Allergies Active Allergy Reactions Criticality Noted Date [...] 20 mg as needed by her previous acid conditioning worker which she has taken sporadically. I have asked her to take this daily to see if this improves her symptoms and she has a follow-up appointment with Dr. Shah on September 16 which she will keep. We also had a long conversation regarding the fact that she is seeing 3 different acid conditioning worker for the same problems. We informed [...] continues to see Dr. Avalos or her acid conditioning worker at [facility]. She verbalized understanding of this and [...] right lower leg 03/06/2019 Antiphospholipid antibody syndrome ([facility] V24) 12/24/2018 Adrenal insufficiency ([facility] V24) 08/23/2018 Allergic rhinitis 08/23/2018 Hyperparathyroidism ([facility] V24) 08/23/2018 MRSA infection 08/23/2018 Overview (05/16/2024): 06/2009, s/p thoracotomy infection Osteoarthritis 08/23/2018 Radiation-induced pulmonary fibrosis ([facility] V2 4) 11/13/2017 Bronchiectasis ([facility] V24, [facility] V28) 2017 Leg edema 08/08/2017 Restrictive lung disease 08/08/2017 Chronic obstructive pulmonar y disease ([facility] V24, [facility] V28) 04/13/2017 Fibromyalgia 04/13/2017 Congestive heart failure ([facility] V24, [facility] V 28) 04/04/2017 Heterozygous factor V Leiden mutation ([facility] V 24) 04/04/2017 Obstructive sleep apnea syndrome 04/04/2017 Overview (05/16/2024): CPAP Pleural effusion 04/04/2017 Pulmonary hypertension ([facility] V24, [facility] V28 ) 04/04/2017 Multiple pulmonary [...] Description 10/10/2024 1:00 PM EDT Office Visit [address] [place] [address] Ayanna Jaffe MD 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); Gait abnormality; Memory change; Anxiety; Blurry vision 10/09/2024 12:45 PM EDT Treatment [facility] Speech [facility] 175 [facility] [address] [place] [address] Daphne Alarcon, BURNING PLANT OPERATOR 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); Cognitive communication disorder; Unsp symptoms and signs w cognitive functions and awareness 10/09/2024 Plan of Care Documentation [facility] Speech [facility] [address] [address] 08/26/2024 10:30 AM EST Telemedicine [facility] 175 [facility] [address] [place] [phone] Ayanna Jaffe MD Anxiety (Primary Dx); Memory change; Gait abnormality; White matter lesion of central nervous system 08/23/2024 1:20 PM EST Office Visit Gastroenterology - 299 [facility] 299 [facility] [address] [place] [phone] Saima Amor, STAGE SETTINGS PAINTER Gastroesophageal reflux disease, unspecified whether esophagitis present (Primary Dx); Constipation, unspecified constipation type 08/19/2024 Telephone [facility] Speech Therapy [address] [address] Daphne Alarcon, BURNING PLANT OPERATOR returning pt call 08/08/2024 Telephone [facility] Speech Therapy [address] [address] Daphne Alarcon, BURNING PLANT OPERATOR Memory Loss (Returned pt call from [...] 05/03/2015 PROCEDURE: DE UPPER GI ENDOSCOPY PERFORMED MITRAL CLIP PROCEDURE Medical History Medical History Date Comments Akathisia 04/15/2013 DX:Akathisia Anxiety 12/07/2016 DX:Anxiety Bronchiectasis ([facility] V24, [facility] V28) 08/08/2017 DX:Bronchiectasis (HCC) Cataract 08/26/2014 DX:Cataract Chronic obstructive pulmonar y disease ([facility]/H[facility] V24, [facility] V28) 04/13/2017 DX:Chronic obstructive pulm onary disease (HCC) 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 DX:Complica cole migraine Congestive heart failure (CM S/HCC V24, [facility] V28) 04/04/2017 DX:Congestive heart failure (HCC) History of deep vein thrombosis 04/04/2017 DX:History of deep vein thrombosis Diverticulitis of sigmoid colon 12/15/2016 DX:Diverticulitis of sigmoid colon Elevated liver enzymes 09/23/2015 DX:Elevat ed liver enzymes Fibromyalgia 04/13/2017 DX:Fibromyalgia Gastroesophageal reflux disease 11/17/2016 DX:Gastroesophageal reflux disease Glaucoma suspect 08/26/2014 DX:Glaucoma dori pect Heterozygous factor V Leiden mutation ([facility] V24) 04/04/2017 DX:Heterozygous factor V [...] syndrome 02/18/2013 DX:Postc oncussion syndrome Pulmonary hypertension ([facility] V24, [facility] V28) 04/04/2017 DX:Pulmonary hypertension (H CC) Restrictive lung disease 08/08/2017 DX:Rest rictive lung disease 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 DX:Zinc deficien cy Obstructive sleep apnea syndrome 04/04/2017 DX:Obstructive sleep apnea syndrome; COMMENT: CPAP Radiation-induced pulmonary fibrosis ([facility] V24) 11/13/2017 DX:Radiation-induced pulmona ry fibrosis (HCC) Adrenal insufficiency ([facility] V24) 08/23/2018 DX:Adrenal insufficiency (HCC) Hyperparathyroidism ([facility] V24) 08/23/2018 DX:Hyperparathyroidism (HCC) Osteoporosis [...] Mx LLL resection, Chemo, RT, Cisplatin, Vinorelbine [id number] Antiphospholipid antibody sy ndrome ([facility] V24) 12/24/2018 DX:Antiphospholipid antibody syndrome (HCC) 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 Hyperparathyroidism ([facility] V24) DX:Hyperparathyroidism (HCC) Adrenal insufficiency ([facility] V24) DX:Adrenal insufficiency (HCC) Family [...] Description 12/10/2024 1:30 PM EDT Office Visit - [place] [address] [facility] [address] [place] [phone] Shirley Chaidez PA [address] [facility] [address] [place] [address] 12/23/2024 9:00 AM EDT Office Visit Vascular Surgery - [place] [address] [place] [phone] Jerry Li MD [address] [address] Health Maintenance Due Date Last Done Comments [...] LAB CHEMISTRY METHOD 06/15/2024 2:10 PM EST [facility] ALT (SGPT) 39 10 - 60 unit/L LAB CHEMISTRY METHOD 06/15/2024 2:10 PM [facility] Alkaline Phosphatase 83 42 - 121 unit/L LAB CHEMISTRY METHOD 06/15/2024 2:10 PM [facility] Total Protein 6.4 6.0 - 8.0 g/dL LAB CHEMISTRY METHOD 06/15/2024 2:10 PM EST [facility] LAB Albumin 3.3 3.2 - 5.0 g/dL LAB CHEMISTRY METHOD 06/15/2024 2:10 PM [facility] Total Bilirubin 0.4 0.0 - 1.4 mg/dL LAB CHEMISTRY METHOD 06/15/2024 2:10 PM [facility] Blood Venous blood specimen / Unknown Venipuncture / Unknown 06/15/2024 1:26 PM EST 06/15/2024 1:32 PM EST us Jovana Cruz MD LAB BLOOD ORDERABLES Final Resul t [facility] 299 [place] [address], from Last 3 Months or Most Recently Relevant to Health Maintenance Insurance MEDICARE [facility] Advance Directives Documents on File Type Date Recorded Patient Can Worker Expl anation Health Care Decision (hx) 10/18/2013 [...] (hx) 10/04/2013 AD LACEY DIRECTIVE Care Teams Vp Data Relationship Specialty Start Date End Date Brennan Burnett MD [address] [place] [address] PCP - General 05/06/24
--- OUTSIDE RECORDS SUMMARY | 2024-11-03 14:36 | XMS_ITS | Encounter Summary ---
Author Organization [facility] and [facility] Address [address] [place] [address] Care Team Providers Care Family Practice Physician Name Role Phone Caitlyn Bowie MD Primary Care Provider +1- [phone] Encounter Details Date Type Department Care Team (Late st Contact Info) Description 03/01/2021 Scanned Document INTERFACE DEFAULT [address] [place] [address] System, Provider Not In Social History Tobacco [...] Health – [facility] 240 [facility] [address] [place] [address] Ronald Mills MD [address] [place] [address] [address] [place] [address] documented as of this encounter Visit Diagnoses Not on filedocumented in this encounter Additional Health Concerns Infection Onset Date Last Indicated Resolved Time COVID-19 03/05/2022 03/05/2022 03/15/2022 7:18 PM EDT Assessment Noted Time PHQ-9 Depression Total Score: 2 11/07/19 19 2:06 PM EDT documented as of this encounter Care Teams Family Practice Physician Relationship Specialty Start Date End Date Caitlyn Bowie MD [address] [address] PCP - General Internal Medicine 05/06/21 documented as of this encounter
--- OUTSIDE RECORDS SUMMARY | 2024-11-03 14:36 | XMS_ITS | Encounter Summary ---
Author Organization [facility] and [facility] Address [address] [place] [address] Care Team Providers Care Distribution Lead Name Role Phone Caitlyn Bowie MD Primary Care Provider +1- [phone] Encounter Details Date Type Department Care Team (Late st Contact Info) Description 02/07/2021 Scanned Document INTERFACE DEFAULT [address] [place] [address] System, Provider Not In Social History Tobacco [...] [facility] 240 [facility] Building [address] [place], [place] [phone] Ronald Mills MD [address] [place] [address] [address] [place] [address] documented as of this encounter [...] End Date Caitlyn Bowie MD [address] [address] PCP - General Internal Medicine 05/06/21 documented as of this encounter
--- OUTSIDE RECORDS SUMMARY | 2024-11-03 14:36 | XMS_ITS | Encounter Summary ---
Author Organization [facility] and [facility] Address [address] [place] [address] Care Team Providers Care Heel Edge Inker Machine Name Role Phone Caitlyn Bowie MD Primary Care Provider +1- [phone] Encounter Details Date Type Department Care Team (Late st Contact Info) Description 09/18/2020 Scanned Document INTERFACE DEFAULT [address] [place] [address] System, Provider Not In Social History Tobacco [...] Center at [facility] 240 [facility] Building [address] [place] [address] Ronald Mills MD [address] [place] [address] [address] [place] [address] documented as of this encounter Visit Diagnoses Not on filedocumented in this encounter Additional Health Concerns Infection Onset Date Last Indicated Resolved Time COVID-19 03/05/2022 03/05/2022 03/15/2022 7:18 PM EDT Assessment Noted Time PHQ-9 Depression Total Score: 2 11/07/19 19 2:06 PM EDT documented as of this encounter Care Teams Heel Edge Inker Machine Relationship Specialty Start Date End Date Caitlyn Bowie MD [address] [address] PCP - General Internal Medicine 05/06/21 documented as of this encounter
--- OUTSIDE RECORDS SUMMARY | 2024-11-03 14:36 | XMS_ITS | Encounter Summary ---
Author Organization [facility] and [facility] Address [address] [place] [address] Care Team Providers Care Perforating Machine Operator Name Role Phone Caitlyn Bowie MD Primary Care Provider +1- [phone] Encounter Details Date Type Department Care Team (Late st Contact Info) Description 12/21/2020 Scanned Document INTERFACE DEFAULT [address] [place] [address] System, Provider Not In Social History Tobacco [...] at [facility] 240 [facility] [address] [place] [address] Ronald Mills MD [address] [place] [address] [address] [place] [address] documented as of this encounter Visit Diagnoses Not on filedocumented in this encounter Additional Health Concerns Infection Onset Date Last Indicated Resolved Time COVID-19 03/05/2022 03/05/2022 03/15/2022 7:18 PM EDT Assessment Noted Time PHQ-9 Depression Total Score: 2 11/07/19 19 2:06 PM EDT documented as of this encounter Care Teams Perforating Machine Operator Relationship Specialty Start Date End Date Caitlyn Bowie MD [address] [address] PCP - General Internal Medicine 05/06/21 documented as of this encounter
--- OUTSIDE RECORDS SUMMARY | 2024-11-03 14:36 | XMS_ITS | Encounter Summary ---
Author Organization [facility] and [facility] Address [address] [place] [address] Care Team Providers Care Hand Inserter Operator Name Role Phone Caitlyn Bowie MD Primary Care Provider +1- [phone] Encounter Details Date Type Department Care Team (Late st Contact Info) Description 03/11/2021 Scanned Document INTERFACE DEFAULT [address] [place] [address] System, Provider Not In Social History Tobacco [...] at [facility] 240 [facility] Building [address] [place], [place] [phone] Ronald Mills MD [address] [place] [address] [address] [place] [address] documented as of this encounter [...] as of this encounter Care Teams Hand Inserter Operator Relationship Specialty Start Date End Date Caitlyn Bowie MD [facility] [address] [address] PCP - General Internal Medicine 05/06/21 documented as of this encounter
--- OUTSIDE RECORDS SUMMARY | 2024-11-03 14:36 | XMS_ITS | Encounter Summary ---
Author Organization [facility] and [facility] Address [address] [place] [address] Care Team Providers Care Puffer Tender Name Role Phone Caitlyn Bowie MD Primary Care Provider +1- [phone] Encounter Details Date Type Department Care Team (Late st Contact Info) Description 01/13/2021 Scanned Document Cancer Center at [address] [address] Ronald Mills MD [address] [address] Social History Tobacco Use Types [...] 4:00 PM EDT Telemedicine Cancer Center at [address] [place] [address] Ronald Mills MD [address] [address] documented as of this encounter [...] documented as of this encounter Care Teams Puffer Tender Relationship Specialty Start Date End Date Caitlyn Bowie MD [address] [address] PCP - General Internal Medicine 05/06/21 documented as of this encounter
--- OUTSIDE RECORDS SUMMARY | 2024-11-03 14:36 | XMS_ITS | Encounter Summary ---
Author Organization [facility] and [facility] Address [address] [place] [address] Care Team Providers Care Children'S Ministry Director Name Role Phone Caitlyn Bowie MD Primary Care Provider +1- [phone] Encounter Details Date Type Department Care Team (Late st Contact Info) Description 10/07/2013 Scanned Document Thoracic Oncology Program at [address] [address] Suzy Kong MD [address] [place] [address] Social History Tobacco Use Types Packs/Day [...] Health [facility] 240 [facility] Building [address] [place], [place] [phone] Ronald Mills MD 240 [facility] A1 [place] [address] documented as of this encounter Visit Diagnoses Not on filedocumented in this encounter Additional Health Concerns Infection Onset Date Last Indicated Resolved Time COVID-19 03/05/2022 03/05/2022 03/15/2022 7:18 PM EDT documented as of this encounter Care Teams Children'S Ministry Director Relationship Specialty Start Date End Date Caitlyn Bowie MD 3400 [facility] [address] [place] [address] PCP - General Internal Medicine 05/06/21 Henry Kelly MD Pulmonary Department 175 [facility] [address] [place] [address] Physician Pulmonary Disease 09/06/17 06/22/20 documented as of this encounter
--- OUTSIDE RECORDS SUMMARY | 2024-11-03 14:36 | XMS_ITS | Encounter Summary ---
Author Organization [facility] and [facility] Address [address] [place] [address] Care Team Providers Care Nuclear Medicine Chief Technologist Name Role Phone Caitlyn Bowie MD Primary Care Provider +1- [phone] Encounter Details Date Type Department Care Team (Late st Contact Info) Description 05/01/2015 Scanned Document [facility] Health Information Management [address] [place] [address] External, Provider Social History Tobacco Use Types [...] Cancer Center at [facility] 240 [facility] Building [address] [place], [place] [phone] Ronald Mills MD 240 [facility] [address] [place] [address] documented as of this encounter [...] of this encounter Care Teams Nuclear Medicine Chief Technologist Relationship Specialty Start Date End Date Caitlyn Bowie MD [address] [facility] [address] [place] [address] PCP - General Internal Medicine 05/06/21 Henry Kelly MD Pulmonary Department 175 [facility] [place] [address] Physician Pulmonary Disease 09/06/17 06/22/20 documented as of this encounter
--- OUTSIDE RECORDS SUMMARY | 2024-11-03 14:36 | XMS_ITS | Encounter Summary ---
Author Organization [facility] Address [address] [place] [address] Care Team Providers Care Cable Former Name Role Phone Caitlyn Bowie MD Primary Care Provider +1- [phone] Encounter Details Date Type Department Care Team (Late st Contact Info) Description 02/03/2021 Scanned Document INTERFACE DEFAULT [address] [place] [address] System, Provider Not In Social History Tobacco [...] [facility] 240 [facility] Building [address] [place], [place] [phone] Ronald Mills MD [address] [place] [address] [address] [place] [address] documented as of this [...] as of this encounter Care Teams Cable Former Relationship Specialty Start Date End Date Caitlyn Bowie MD [address] [address] PCP - General Internal Medicine 05/06/21 documented as of this encounter
--- OUTSIDE RECORDS SUMMARY | 2024-11-03 14:36 | XMS_ITS | Encounter Summary ---
Author Organization [facility] and [facility] Address [address] [place] [address] Care Team Providers Care Pipe Threader Name Role Phone Caitlyn Bowie MD Primary Care Provider +1- [phone] Encounter Details Date Type Department Care Team (Late st Contact Info) Description 03/08/2021 Scanned Document INTERFACE DEFAULT [address] [place] [address] System, Provider Not In Social History Tobacco [...] [facility] 240 [facility] Building [address] [place], [place] [phone] Ronald Mills MD [address] [place] [address] [address] [place] [address] documented as of this encounter Procedures Procedure Name Priority Date/Time Associated Diagnosis Comments LAB SCAN 03/08/2021 12:00 AM EDT LAB SCAN 03/08/2021 12:00 AM EDT documented in this encounter Results * LAB SCAN (03/08/2021 12:00 AM EDT) 03/08/2021 us Provider Not In System LAB BLOOD ORDERABLES Cramina l Result * LAB SCAN (03/08/2021 12:00 [...] as of this encounter Care Teams Pipe Threader Relationship Specialty Start Date End Date Caitlyn Bowie MD [facility] [address] [address] PCP - General Internal Medicine 05/06/21 documented as of this encounter
--- OUTSIDE RECORDS SUMMARY | 2024-11-03 14:36 | XMS_ITS | Encounter Summary ---
Author Organization [facility] and [facility] Address [address] [place] [address] Care Team Providers Care Fire Fighter [employer] Name Role Phone Caitlyn Bowie MD Primary Care Provider +1- [phone] Encounter Details Date Type Department Care Team (Late st Contact Info) Description 02/02/2021 Scanned Document INTERFACE DEFAULT [address] [place] [address] System, Provider Not In Social History Tobacco [...] [facility] 240 [facility] [address] [place] [address] Ronald Mills MD [address] [place] [address] [address] [place] [address] documented as of this encounter [...] as of this encounter Care Teams Fire Fighter [employer] Relationship Specialty Start Date End Date Caitlyn Bowie MD [facility] [address] [address] PCP - General Internal Medicine 05/06/21 documented as of this encounter
--- OUTSIDE RECORDS SUMMARY | 2024-11-03 14:36 | XMS_ITS | Encounter Summary ---
Author Organization [facility] and [facility] Address [address] [place] [address] Care Team Providers Care Customer Engineer Name Role Phone Caitlyn Bowie MD Primary Care Provider +1- [phone] Reason for Visit * Reason Comments Other Encounter Details Date Type Department Care Team (Late st Contact Info) Description 01/12/2021 Telephone [facility] at [address] - [address] [phone] Ronald Mills MD [address] [place] [address] Other Social History Tobacco Use Types [...] AM EDT Lab orders were faxed to [facility] @ [phone]. Patient notified by phone. * Telephone Encounter - Kathleen Nasima - 01/12/2021 8:46 AM EDT Pt called looking to speak with Kirstin RE: lab orders sent to lab [facility] lab Looking to have labs sent there A.S.A.P at some point today She is scheduled with Dr. Mills on January 28 documented in this encounter Plan of Treatment Upcoming Encounters Date Type Department Care Team (Late st Contact Info) Description 04/25/2025 4:00 PM EDT Telemedicine Cancer Center at [facility] 240 [facility] Building [address] [place], [place] [phone] Ronald Mills MD 240 [employer] [address] [place] [address] documented as of this encounter Visit Diagnoses Not on filedocumented in this encounter Additional Health Concerns Infection Onset Date Last Indicated Resolved Time COVID-19 03/05/2022 03/05/2022 03/15/2022 7:18 PM EDT Assessment Noted Time PHQ-9 Depression Total Score: 2 11/07/19 19 2:06 PM EDT documented as of this encounter Care Teams Customer Engineer Relationship Specialty Start Date End Date Caitlyn Bowie MD [address] [address] PCP - General Internal Medicine 05/06/21 documented as of this encounter
--- OUTSIDE RECORDS SUMMARY | 2024-11-03 14:36 | XMS_ITS | Encounter Summary ---
Author Organization [facility] and [facility] Address [address] [place] [phone] Care Team Providers Care Edge Glue Machine Tender Name Role Phone Caitlyn Bowie MD Primary Care Provider +1- [phone] Encounter Details Date Type Department Care Team (Late st Contact Info) Description 04/28/2015 Scanned Document [facility] Health Information Management [address] [place] [address] External, Provider Social History Tobacco Use Types [...] at [facility] [address] [facility] [address] [place], [place] [id number] Ronald Mills MD [address] [facility] [address] [place] [address] documented as of this encounter Procedures Procedure Name Priority Date/Time Associated Diagnosis Comments LAB SCAN Routine 04/28/2015 documented in this encounter Results * Lab Scan (04/28/2015) Blood specimen (specimen) us Provider External LAB BLOOD ORDERABLES Edited Re sult - Final [facility] documented in this encounter Visit Diagnoses Not on filedocumented in this encounter Additional Health Concerns Infection Onset Date Last Indicated Resolved Time COVID-19 03/05/2022 03/05/2022 03/15/2022 7:18 PM EDT documented as of this encounter Care Teams Edge Glue Machine Tender Relationship Specialty Start Date End Date Caitlyn Bowie MD 3400 [facility] 1 [place] [address] PCP - General Internal Medicine 05/06/21 Henry Kelly MD Pulmonary Department 175 [facility] [place] [address] Physician Pulmonary Disease 09/06/17 06/22/20 documented as of this encounter
--- OUTSIDE RECORDS SUMMARY | 2024-11-03 14:36 | XMS_ITS | Encounter Summary ---
Author Organization [facility] and [facility] Address [address] [place] [phone] Care Team Providers Care Core Cutter And Reamer Name Role Phone Caitlyn Bowie MD Primary Care Provider +1- [phone] Encounter Details Date Type Department Care Team (Late st Contact Info) Description 02/25/2021 Scanned Document INTERFACE DEFAULT [address] [place] [address] System, Provider Not In Social History Tobacco [...] [facility] [address] [place] [address] Ronald Mills MD [address] [place] [address] [address] [place] [address] documented as of this encounter [...] as of this encounter Care Teams Core Cutter And Reamer Relationship Specialty Start Date End Date Caitlyn Bowie MD [address] [address] PCP - General Internal Medicine 05/06/21 documented as of this encounter
--- OUTSIDE RECORDS SUMMARY | 2024-11-03 14:36 | XMS_ITS | Encounter Summary ---
Author Organization [facility] and [facility] Address [address] [place] [address] Care Team Providers Care House Builder Name Role Phone Caitlyn Bowie MD Primary Care Provider +1- [phone] Encounter Details Date Type Department Care Team (Late st Contact Info) Description 01/13/2021 Scanned Document [facility] at [address] [address] External, Provider Social History Tobacco Use Types [...] [facility] 240 [facility] [address] [place], [place] [id number] Ronald Mills MD [address] [place] [address] [address] [place] [address] documented as of this encounter [...] documented as of this encounter Care Teams House Builder Relationship Specialty Start Date End Date Caitlyn Bowie MD [address] [address] PCP - General Internal Medicine 05/06/21 documented as of this encounter
--- OUTSIDE RECORDS SUMMARY | 2024-11-03 14:36 | XMS_ITS | Encounter Summary ---
Author Organization [facility] and [facility] Address [address] [place] [phone] Care Team Providers Care Metrologist Name Role Phone Caitlyn Bowie MD Primary Care Provider +1- [phone] Encounter Details Date Type Department Care Team (Late st Contact Info) Description 03/24/2021 Scanned Document INTERFACE DEFAULT [address] [place] [phone] System, Provider Not In Social History Tobacco [...] – [facility] 240 [facility] [address] [place] [address] Ronald Mills MD [address] [place] [address] [address] [place] [address] documented as of this encounter Visit Diagnoses Not on filedocumented in this encounter Additional Health Concerns Infection Onset Date Last Indicated Resolved Time COVID-19 03/05/2022 03/05/2022 03/15/2022 7:18 PM EDT Assessment Noted Time PHQ-9 Depression Total Score: 2 11/07/19 19 2:06 PM EDT documented as of this encounter Care Teams Metrologist Relationship Specialty Start Date End Date Caitlyn Bowie MD [address] [address] PCP - General Internal Medicine 05/06/21 documented as of this encounter
--- OUTSIDE RECORDS SUMMARY | 2024-11-03 14:36 | XMS_ITS | Encounter Summary ---
Author Organization [facility] and [facility] Address [address] [place] [phone] Care Team Providers Care Siderographer Name Role Phone Caitlyn Bowie MD Primary Care Provider +1- [phone] Encounter Details Date Type Department Care Team (Late st Contact Info) Description 02/11/2021 Scanned Document INTERFACE DEFAULT [address] [place] [address] System, Provider Not In Social History Tobacco [...] [facility] [address] [place] [address] Ronald Mills MD [address] [place] [address] [address] [place] [address] documented as of this encounter [...] documented as of this encounter Care Teams Siderographer Relationship Specialty Start Date End Date Caitlyn Bowie MD [address] [address] PCP - General Internal Medicine 05/06/21 documented as of this encounter
--- OUTSIDE RECORDS SUMMARY | 2024-11-03 14:36 | XMS_ITS | Encounter Summary ---
Author Organization [facility] and [facility] Address [address] [place] [phone] Care Team Providers Care Shoe Sewing Machine Operator And Tender Name Role Phone Caitlyn Bowie MD Primary Care Provider +1- [phone] Encounter Details Date Type Department Care Team (Late st Contact Info) Description 03/22/2021 Scanned Document INTERFACE DEFAULT [address] [place] [address] System, Provider Not In Social History Tobacco [...] [facility] 240 [facility] [address] [place] [address] Ronald Mills MD [address] [place] [address] [address] [place] [address] documented as of this encounter Visit Diagnoses Not on filedocumented in this encounter Additional Health Concerns Infection Onset Date Last Indicated Resolved Time COVID-19 03/05/2022 03/05/2022 03/15/2022 7:18 PM EDT Assessment Noted Time PHQ-9 Depression Total Score: 2 11/07/19 19 2:06 PM EDT documented as of this encounter Care Teams Shoe Sewing Machine Operator And Tender Relationship Specialty Start Date End Date Caitlyn Bowie MD [address] [address] PCP - General Internal Medicine 05/06/21 documented as of this encounter
--- OUTSIDE RECORDS SUMMARY | 2024-11-03 14:36 | XMS_ITS | Encounter Summary ---
Author Organization [facility] and [facility] Address [address] [place] [phone] Care Team Providers Care Topographical Engineer Name Role Phone Caitlyn Bowie MD Primary Care Provider +1- [phone] Encounter Details Date Type Department Care Team (Late st Contact Info) Description 03/14/2021 Scanned Document INTERFACE DEFAULT [address] [place] [address] System, Provider Not In Social History Tobacco [...] – [facility] 240 [facility] [address] [place] [id number] Ronald Mills MD [address] [place] [address] [place] [address] documented as of this encounter [...] documented as of this encounter Care Teams Topographical Engineer Relationship Specialty Start Date End Date Caitlyn Bowie MD [address] [address] PCP - General Internal Medicine 05/06/21 documented as of this encounter
--- OUTSIDE RECORDS SUMMARY | 2024-11-03 14:36 | XMS_ITS | Encounter Summary ---
Author Organization [facility] and [facility] Address [address] [place] [address] Care Team Providers Care Museum Informatics Specialist Name Role Phone Caitlyn Bowie MD Primary Care Provider +1- [phone] Encounter Details Date Type Department Care Team (Late st Contact Info) Description 11/09/2020 Scanned Document INTERFACE DEFAULT [address] [place] [address] System, Provider Not In Social History Tobacco [...] [facility] 240 [facility] [address] [place] [address] Ronald Mills MD [address] [place] [address] [address] [place] [address] documented as of this encounter Visit Diagnoses Not on filedocumented in this encounter Additional Health Concerns Infection Onset Date Last Indicated Resolved Time COVID-19 03/05/2022 03/05/2022 03/15/2022 7:18 PM EDT Assessment Noted Time PHQ-9 Depression Total Score: 2 11/07/19 19 2:06 PM EDT documented as of this encounter Care Teams Museum Informatics Specialist Relationship Specialty Start Date End Date Caitlyn Bowie MD [address] [address] PCP - General Internal Medicine 05/06/21 documented as of this encounter
--- OUTSIDE RECORDS SUMMARY | 2024-11-03 14:36 | XMS_ITS | Encounter Summary ---
Author Organization [facility] and [facility] Address [address] [place] [address] Care Team Providers Care Buffing Wheel Former Automatic Name Role Phone Caitlyn Bowie MD Primary Care Provider +1- [phone] Encounter Details Date Type Department Care Team (Late Contact Info) Description 02/03/2021 Scanned Document [facility] Health Information Management [address] [place] [address] External, Provider Social History Tobacco Use Types [...] [facility] 240 [facility] [address] [place], [place] [id number] Ronald Mills MD [address] [place] [address] [address] [place] [address] documented as of this encounter [...] documented as of this encounter Care Teams Buffing Wheel Former Automatic Relationship Specialty Start Date End Date Caitlyn Bowie MD [address] [address] PCP - General Internal Medicine 05/06/21 documented as of this encounter
--- OUTSIDE RECORDS SUMMARY | 2024-11-03 14:36 | XMS_ITS | Encounter Summary ---
Author Organization [facility] and [facility] Address [address] [place] [address] Care Team Providers Care Radio Performer Name Role Phone Caitlyn Bowie MD Primary Care Provider +1- [phone] Encounter Details Date Type Department Care Team (Late st Contact Info) Description 02/24/2021 Scanned Document INTERFACE DEFAULT [address] [place] [address] System, Provider Not In Social History Tobacco [...] [facility] 240 [facility] [address] [place] [address] Ronald Mills MD [address] [place] [address] [address] [place] [address] documented as of this encounter [...] as of this encounter Care Teams Radio Performer Relationship Specialty Start Date End Date Caitlyn Bowie MD [address] [address] PCP - General Internal Medicine 05/06/21 documented as of this encounter
--- OUTSIDE RECORDS SUMMARY | 2024-11-03 14:36 | XMS_ITS | Encounter Summary ---
Author Organization [facility] and [facility] Address [address] [place] [phone] Care Team Providers Care Range Operator Name Role Phone Caitlyn Bowie MD Primary Care Provider +1- [phone] Encounter Details Date Type Department Care Team (Late Contact Info) Description 02/02/2021 Scanned Document [facility] Health Information Management [address] [place] [address] External, Provider Social History Tobacco Use Types [...] [facility] 240 [facility] [address] [place], [place] [id number] Ronald iMlls MD [address] [place] [address] [address] [place] [address] documented as of this encounter Visit Diagnoses Not on filedocumented in this encounter Additional Health Concerns Infection Onset Date Last Indicated Resolved Time COVID-19 03/05/2022 03/05/2022 03/15/2022 7:18 PM EDT Assessment Noted Time PHQ-9 Depression Total Score: 2 11/07/19 19 2:06 PM EDT documented as of this encounter Care Teams Range Operator Relationship Specialty Start Date End Date Caitlyn Bowie MD [address] [address] PCP - General Internal Medicine 05/06/21 documented as of this encounter
--- OUTSIDE RECORDS SUMMARY | 2024-11-03 14:36 | XMS_ITS | Encounter Summary ---
Author Organization [facility] [place] [facility] and [facility] Address [address] [place] [phone] Care Team Providers Care Autopsy Assistant Name Role Phone Caitlyn Bowie MD Primary Care Provider +1- [phone] Encounter Details Date Type Department Care Team (Late st Contact Info) Description 11/29/2017 Scanned Document [facility] Health Information Management [address] [place] [address] External, Provider Social History Tobacco Use Types [...] [facility] Building [address] [place], [place] [phone] Ronald Mills MD [address] [place] [address] [address] [place] [address] documented as of [...] documented as of this encounter Care Teams Autopsy Assistant Relationship Specialty Start Date End Date Caitlyn Bowie MD 3400 [facility] 1 [place] [address] PCP - General Internal Medicine 05/06/21 Henry Kelly MD Pulmonary Department 175 [facility] [place] [address] Physician Pulmonary Disease 09/06/17 06/22/20 documented as of this encounter
--- OUTSIDE RECORDS SUMMARY | 2024-11-03 14:36 | XMS_ITS | Data Portability ---
Author Organization [place] [facility], [facility] Address [address] [place] [address] Care Team Providers Care Quality Control Assessor Name Role Phone EVELIN RAMSAY Primary Care Provider [phone] SHANTI YBARRA OTHER [phone] Assessment Encounter Date Assessment Date Assessment [...] 911 activated Plan/Discussion: EMS handoff given to [facility] In order to obtain further information and compare any laboratory results/values, I have accessed old patient records. This information was pertinent in my medical decision making today. [email or web address] Not available 03/14/2021 13:20:46 07/18/2021 07/18/2021 Overview/History [...] as of yet. -She is educated to belt picker stool softeners to help promote BM [...] I have accessed patient records on the [employer] and old patient records. This [...] care of this patient according to [facility]'s infection prevention protocols. Time On Scene with [...] noting blood on her pillow approximately 3 inaja when she woke this morning. She has [...] care of this patient according to [facility]'s infection prevention protocols. [email or web address] Not available 12/29/2021 14:43:37 Plan of Treatment Reminders Order Date Submit Date Provider Last Modified By Organization Details Last Modified Time Details Appointments None recorded. Lab None recorded. Referral None recorded. Procedures None recorded. Surgeries None recorded. Imaging None recorded. Medication Orders docusate sodium 100 mg capsule 2021 022 lnovia [facility], [address] [facility], [place], [address], 19:28:14 Patient TargetsNo targets recorded. Patient Instructions Encounter Date Encounter Id Patient Instructions Last Modified By Organization Details Last Modified Time 03/14/2021 [id number] Thank you for yo ur visit with [facility] today. You were seen today for abdominal [...] in your condition between 8am-10pm, please call [facility] at [phone] to help navigate your care. [email or web address] Not available 03/14/2021 12:46:32 10/18/2021 [id number] It was great to see you today! Thank you for letting [facility] assist you in your medical needs [...] follow up with your PCP please contact [facility] for [facility]uation. Please present to the nearest [...] INR 1.2 0.9-1. 2 Not Available [place] [facility] [address] [place], [address], 02/11/2021 16:58:14 02/12/20 21 02/11/2021 , sylvia vance lower extre mity No observ ation record ed. [address] (Imaging) [address] [place], [address], 02/12/2021 08:19:41 Result Notes None recorded. Problems Name Problem SNOMED Code Status Onset Date Resolution Date Notes Provider Name and Address Organization Details Recorded Time Chronic obstructive pulmonary disease 56398428 Active 2018 ARCELIA PATELALON WINSTON [address], [place], [address], [place] [facility] 9 12:59:21 Problem Notes None recorded. Procedures Surgical History Date Name Laterality Status Provider Name and Address Organization Details Recorded Time Total Hysterectomy completed Cristine Sidhu, SAP INTEGRATION ARCHITECT [address], [place], [address], [place] [facility] 10/18/2021 19:39:45 lobectomy of lung completed Cristine frazier, SAP INTEGRATION ARCHITECT [address], [place], [address], [place] [facility] 10/18/2021 19:40:05 Remove tonsils and adenoids completed Cristine Sidhu, ALON [address], [place], [address], [place] [facility] 10/18/2021 19:40:22 Imaging Results Imaging Date Name Status LastModified by Organiz ation Details LastModified Time 02/11/2021 US, duplex, venous, lower extremity completed [address] (Imaging) [address] [place], [address], 02/12/2021 08:19:41 Procedure Notes None recorded. Medical Equipment None Reported. Allergies Allergen ID Allergen Name Allergen Category Reaction Reaction Severity Criticality Documentation Date Start Date Code Code System Note Provider Name and Address Organization Details Recorded Time 79416 Product containin g penicilli n (product) medicatio n Not available Not available Not available 06/15/2019 43964 8001 SNOMED ARCELIA PATELTISH SAP INTEGRATION ARCHITECT [address], [place], [address], [place] [facility] 9 12:56:48 01226 Substance with sulfonami de structure and antibacte rial mechanism of action (substanc e) medicatio n Not available Not available Not available 06/15/2019 96225 8003 SNOMED ARCELIA FAJARDO , SAP INTEGRATION ARCHITECT [address], [place], [address], [place] [facility] 9 12:56:54 21320 Voltaren medicatio n Not available Not available Not available 06/15/201973669 6 RxNorm ARCELIA FAJARDO , SAP INTEGRATION ARCHITECT [address], [facility] [place], [address], [place] [facility] 9 12:57:01 09592 Iodinated contrast media (substanc e) medicatio n Not available Not available Not available 06/15/2019 97794 2004 SNOMED ARCELIA FAJARDO , SAP INTEGRATION ARCHITECT [address], [place], [address], [place] [facility] 9 12:57:07 97996 vancomyci n medicatio n Not available Not available Not available 06/15/2019 45184 RxNorm ARCELIA FAJARDO , SAP INTEGRATION ARCHITECT [address], [facility] [place], [address], [place] [facility] 9 12:57:14 20620 gentamici n medicatio n Not available Not available Not available 06/15/2019 67666 50 RxNorm ARCELIA FAJARDO , SAP INTEGRATION ARCHITECT [address], [place], [address], [place] [facility] 9 12:57:20 00012 Biaxin medicatio n Not available Not available Not available 06/15/201979039 9 RxNorm ARCELIA FAJARDO , SAP INTEGRATION ARCHITECT [address], [place], [address], [place] [facility] 9 12:57:27 89471 Avelox medicatio n Not available Not available Not available 06/15/2019 60454 6 RxNorm ARCELIA FAJARDO , SAP INTEGRATION ARCHITECT [address], [place], [address], [place] [facility] 9 12:57:34 22878 erythromy jaylon medicatio n Not available Not available Not available 06/15/2019 4053 RxNorm ARCELIA FAJARDO , SAP INTEGRATION ARCHITECT [address], [place], [address], [place] [facility] 9 12:57:41 50713 Zithromax medicatio n Not available Not available Not available 06/15/2019 24756 4 RxNorm ARCELIA FAJARDO , SAP INTEGRATION ARCHITECT [address], [facility] [place], [address], [place] [facility] 9 12:57:51 57629 Levaquin medicatio n Not available Not available Not available 06/15/2019 77740 2 RxNorm ARCELIA FAJARDO , SAP INTEGRATION ARCHITECT [address], [place], [address], [place] [facility] 9 12:58:02 97271 Cipro medicatio n Not available Not available Not available 06/15/2019 40929 3 RxNorm ARCELIA FAJARDO , SAP INTEGRATION ARCHITECT [address], [place], [address], [place] [facility] 9 12:58:08 51766 morphine medicatio n Not available Not available Not available 06/15/2019 7052 RxNorm ARCELIA FAJARDO , SAP INTEGRATION ARCHITECT [address], [place], [address], [place] [facility] 9 12:58:20 71456 procaine hydrochlo ride medicatio n Not available Not available Not available 06/15/2019 60582 8 RxNorm ARCELIA FAJARDO , SAP INTEGRATION ARCHITECT [address], [place], [address], [place] [facility] 9 12:58:42 46661 barium sulfate medicatio n Not available Not available Not available 06/15/2019 1331 RxNorm ARCELIA FAJARDO , SAP INTEGRATION ARCHITECT [address], [facility] [place], [address], [place] [facility] 9 12:58:54 87936 Gastrogra fin medicatio n Not available Not available Not available 06/15/2019 61669 5 RxNorm ARCELIA FAJARDO , SAP INTEGRATION ARCHITECT [address], [place], [address], [place] [facility] 9 12:59:01 44659 Flagyl medicatio n Not available Not available Not available 06/15/201983872 6 RxNorm ARCELIA FAJARDO , ALON [address], [place], [address], [place] [facility] 9 12:59:06 09674 shrimp allergeni c extract food Not available Not available Not available 06/15/2019 60180 2 RxNorm ARCELIA FAJADRO , SAP INTEGRATION ARCHITECT [address], [place], [address], [place] [facility] [...] completed Not Available Not Available Not Available [facility] 100,000 unit/gram topical powder APPLY ONE [...] [degF] 114 mm[Hg] 62 mm[Hg] Not Available [facility] 1 12:53:01 Date Recorded Respiratory rate Oxygen saturation Oxygen saturation in Arterial blood by Pulse oximetry Heart rate Body temperature Systolic blood pressure Diastolic blood pressure Provider Name and Address Organization Details Last Updated DateTime 2 18 /min 98 % 98 % 84 /min 98.9 [degF] 112 mm[Hg] 58 mm[Hg] Not Available [facility] 2 11:16:01 Date Recorded Heart rate Oxygen saturation Oxygen saturation in Arterial blood by Pulse oximetry Respiratory rate Body temperature Systolic blood pressure Diastolic blood pressure Systolic blood pressure Diastolic blood pressure Provider Name and Address Organization Details Last Updated DateTime 2 80 /min 96 % 96 % 18 /min 98.9 [degF] 142 mm[Hg] 66 mm[Hg] 128 mm[Hg] 60 mm[Hg] Not Available [facility] 2 20:16:17 Date Recorded Oxygen saturation Oxygen saturation in Arterial blood by Pulse oximetry Heart rate Respiratory rate Body temperature Systolic blood pressure Diastolic blood pressure Provider Name and Address Organization Details Last Updated DateTime 2 96 % 96 % 77 /min 18 /min 98.6 [degF] 122 mm[Hg] 60 mm[Hg] Not Available [facility] 2 13:41:00 Social History Question Answer Notes LastModified by Organizat ion Details LastModified Time Tobacco Smoking Status Never Smoker ARCELIA FAJARDO NP [address] [facility] [place], [address], [place] [facility] 06/15/2019 13:05:25 Do You Have An [...] SNOMED-CT Code Diagnosis ICD10 Code Diagnosis Note [id number] ARCELIA FAJARDO NP SPR - HOME [address] [facility] [place] [address] 06/15/2019 12:54:37 06/17/2019 13:06:33 Excoriation of skin 023765479 T14.8XXA [id number] JANIS GILBERT NP SPR - HOME [address] [facility] [place] [address] 11/13/2019 16:03:00 11/18/2019 14:53:37 Pain in lower limb 56497306 M79.661 [id number] ARCELIA FAJARDO NP SPR - HOME [address] [facility] [place] [address] 03/14/2020 20:02:43 03/18/2020 21:30:46 Traumatic hematoma 733922356 T14.8XXA Long-term current use of anticoagulant 397135788 Z79.01 Pain in left foot 407872 7534 62819 M79.672 [id number] EMELIA TOMPKINS SPR - [facility] [address] [facility] [place] [address] 03/20/2020 12:50:59 03/23/2020 17:54:28 Contusion of lower leg 52726581 S80.10XA Swelling of lower leg 44 3948082 R22.42 [id number] SPR - HOME [address] [facility] [place] [place] [address] 09/29/2020 11:41:21 09/29/2020 12:38:57 Pain of intercostal space 585635961 R07.82 Exposure t o communicable disease 184087852 Z20.822 [id number] Waleska Matos, SAP INTEGRATION ARCHITECT SPR - HOME [address] [facility] [place] [address] 02/11/2021 16:34:32 02/12/2021 11:08:44 Hematoma of lower leg 359326576 S80.11XA [id number] JAMES RADHA SAP INTEGRATION ARCHITECT SPR - HOME [address] [facility] [place] [address] 03/14/2021 12:45:30 03/19/2021 14:09:43 Abdominal pain 53775648 R10.9 [id number] EMELIA Alfonso SPR - HOME [address] [facility] [place] [address] 07/18/2021 10:56:56 07/22/2021 23:43:22 Constipation 22461879 K59.00 Left lower quadrant pain 074260423 R10.32 [id number] Cristine Sidhu NP SPR - HOME [address] [facility] [place] [address] 10/18/2021 19:17:00 11/10/2021 16:33:03 Left sided abdominal pain 104612260 R10.9 Hematoma of lower leg 44 5225967 S80.10XA Long-term current use of anticoagulant 052970078 Z79.01 [id number] Cristine Sidhu NP SPR - HOME [address] [facility] [address] 12/29/2021 13:36:24 12/30/2021 10:20:27 Blood coagulation disorder 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 D68.61 D68.2 [id number] Olivia Goldberg SAP INTEGRATION ARCHITECT SPR - HOME [address] [facility] [place] [address] 01/18/2023 14:00:39 01/18/2023 15:01:49 Health Concerns Section Related Observation LastModified by Organization Detai ls LastModified Time None Recorded Concern Status LastModified by Organization Details LastModified Time None Recorded Advance Directives Directive Y: Payers Encounter Date Sequence Insurance Name Policy Number Policy Pettit Covered Member ID Pettit Member ID Guarantor Name 03/14/2021 1 [place] [employer] Jovana Malik [id number] Jovana Malik 03/14/2021 2 [place] [id number] Jovana Steinino [id number] Jovana Steinino 07/18/2021 1 [place]ICARE [place]: [facility] Jovana Malik [id number] Jovana Steinino 07/18/2021 2 [place] [id number] Jovana Steinino [id number] Jovana Steinino 10/18/2021 1 [place] [facility] Jovana Steinino [id number] Jovana Helena 10/18/2021 2 [place] [id number] Jovana Steinino [id number] Jovana Steinino 12/29/2021 1 [place] [facility] Jovana Malik [id number] Jovana [place] 12/29/[address] [facility]: ([place] [id number] Jovana Steinino [id number] Jovana Steinino 01/18/2023 1 [place] [facility] Jovana Malik [id number] Jovana [place] 01/18/2023 2 [place] [id number] Jovana tSeinino [id number] Jovana Malik Notes Date Note Type Note Provider Name and Address Organization Details Recorded Time 1 text/html This is a 75-year-old female, known to [facility], who calls with concerns for severe abdominal [...] intake. JAMES GARCIA NP [address], [place], [address], [place] [facility] 03/14/2021 13:21:32 2 text/html [...] asscociated sx's. EMELIA Ni [address], [place], [address], [place] [facility] 07/18/2021 12:04:00 2 text/html [...] evaluated. Cristine Sidhu NP [address], [place], [address], [place] [facility] 11/09/2021 02:11:05 2 text/html [...] supernatural. Cristine Sidhu NP [address], [place], [address], [place] [facility] 12/29/2021 14:43:53 3 text/html pt did not answer, visit canceled Olivia Goldberg NP [address], [place], [address], [place] [facility] 01/18/2023 19:34:36 OBGyn Episode No OBEpisode recorded.
--- OUTSIDE RECORDS SUMMARY | 2024-11-03 14:36 | XMS_ITS | Encounter Summary ---
Author Organization [facility] Address [address] [place] [address] Care Team Providers Care Vice President Of Advertising Name Role Phone Caitlyn Bowie MD Primary Care Provider +1- [phone] Encounter Details Date Type Department Care Team (Late st Contact Info) Description 07/31/2015 Scanned Document [facility] Health Information Management [address] [place] [address] External, Provider Social History Tobacco Use Types [...] Center at [facility] [address] [facility] [address] [place], [place] [id number] Ronald Mills MD [address] [facility] [address] [place] [address] documented as of this encounter Procedures Procedure Name Priority Date/Time Associated Diagnosis Comments NUC MED/PET RESULT SCAN Routine 07/31/2015 documented in this encounter Results * Nuc Med/PET Result Scan (07/31/2015) us Provider External IMG SCAN REPORTS Edited Result - Final [facility] [place], [place], [facility] documented in this encounter Visit Diagnoses Not on filedocumented in this encounter Additional Health Concerns Infection Onset Date Last Indicated Resolved Time COVID-19 03/05/2022 03/05/2022 03/15/2022 7:18 PM EDT documented as of this encounter Care Teams Vice President Of Advertising Relationship Specialty Start Date End Date Caitlyn Bowie MD [address] [facility] [place] [address] [place] [address] PCP - General Internal Medicine 05/06/21 Henry Kelly MD Pulmonary Department [address] [facility] [place] [address] Physician Pulmonary Disease 09/06/17 06/22/20 documented as of this encounter
--- OUTSIDE RECORDS SUMMARY | 2024-11-03 14:36 | XMS_ITS | Encounter Summary ---
Author Organization [facility] Address [address] [place] [address] Care Team Providers Care Airdox Fitter Name Role Phone Caitlyn Bowie MD Primary Care Provider +1- [phone] Encounter Details Date Type Department Care Team (Late st Contact Info) Description 08/23/2017 Scanned Document [facility] Health Information Management [address] [place] [address] External, Provider Social History Tobacco Use Types [...] [facility] at [facility] [address] [facility] [address] [place], [place] [address] Ronald Mills MD [address] [place] [address] [address] [place] [address] documented as of this encounter [...] documented as of this encounter Care Teams Airdox Fitter Relationship Specialty Start Date End Date Caitlyn Bowie MD [address] [facility] 1 [place] [address] PCP - General Internal Medicine 05/06/21 Henry Kelly MD Pulmonary Department [address] [facility] [place] [address] Physician Pulmonary Disease 09/06/17 06/22/20 documented as of this encounter
--- OUTSIDE RECORDS SUMMARY | 2024-11-03 14:36 | XMS_ITS | Encounter Summary ---
Author Organization [facility] Address [address] [place] [address] Care Team Providers Care Filling Carrier Name Role Phone Caitlyn Bowie MD Primary Care Provider +1- [phone] Encounter Details Date Type Department Care Team (Late st Contact Info) Description 03/15/2021 Scanned Document INTERFACE DEFAULT [address] [place] [address] System, Provider Not In Social History Tobacco [...] [facility] [address] [facility] Building [address] [place], [place] [address] Ronald Mills MD [address] [place] [address] [address] [place] [address] documented as of this encounter [...] as of this encounter Care Teams Filling Carrier Relationship Specialty Start Date End Date Caitlyn Bowie MD [facility] [address] [address] PCP - General Internal Medicine 05/06/21 documented as of this encounter
--- OUTSIDE RECORDS SUMMARY | 2024-11-03 14:36 | XMS_ITS | Encounter Summary ---
Author Organization [facility] Address [address] [place] [address] Care Team Providers Care Environmental Technical Officer Name Role Phone Caitlyn Bowie MD Primary Care Provider +1- [phone] Encounter Details Date Type Department Care Team (Late st Contact Info) Description 03/16/2021 Scanned Document INTERFACE DEFAULT [address] [place] [address] System, Provider Not In Social History Tobacco [...] at [facility] [address] [facility] [address] [place] [address] Ronald Mills MD [address] [place] [address] [address] [place] [address] documented as of this encounter Visit Diagnoses Not on filedocumented in this encounter Additional Health Concerns Infection Onset Date Last Indicated Resolved Time COVID-19 03/05/2022 03/05/2022 03/15/2022 7:18 PM EDT Assessment Noted Time PHQ-9 Depression Total Score: 2 11/07/19 19 2:06 PM EDT documented as of this encounter Care Teams Environmental Technical Officer Relationship Specialty Start Date End Date Caitlyn Bowie MD [address] [address] PCP - General Internal Medicine 05/06/21 documented as of this encounter
--- OUTSIDE RECORDS SUMMARY | 2024-11-03 14:36 | XMS_ITS | Encounter Summary ---
Author Organization [facility] Address [address] [place] [address] Care Team Providers Care Survey Field Technician Name Role Phone Caitlyn Bowie MD Primary Care Provider +1- [phone] Encounter Details Date Type Department Care Team (Late st Contact Info) Description 01/26/2018 Scanned Document [facility] Health Information Management [address] [place] [address] External, Provider Social History Tobacco Use Types [...] [facility] [address] [facility] Building [address] [place], [place] [address] Ronald Mills MD [address] [place] [address] [address] [place] [address] documented as of this encounter [...] documented as of this encounter Care Teams Survey Field Technician Relationship Specialty Start Date End Date Caitlyn Bowie MD [address] [facility] 1 [place] [address] PCP - General Internal Medicine 05/06/21 Henry Kelly MD Pulmonary Department [address] [facility] [place] [address] Physician Pulmonary Disease 09/06/17 06/22/20 documented as of this encounter
--- OUTSIDE RECORDS SUMMARY | 2024-11-03 14:37 | XMS_ITS | Encounter Summary ---
Author Organization [facility] Address [address] [place] [address] Care Team Providers Care Investment Consultant Name Role Phone Caitlyn Bowie MD Primary Care Provider +1- [phone] Encounter Details Date Type Department Care Team (Late st Contact Info) Description 06/08/2021 Scanned Document INTERFACE DEFAULT [address] [place] [address] System, Provider Not In Social History Tobacco [...] [facility] [address] [facility] [address] [place], [place] [address] Ronald Mills MD [address] [place] [address] [address] [place] [address] documented as of this encounter [...] documented as of this encounter Care Teams Investment Consultant Relationship Specialty Start Date End Date Caitlyn Bowie MD [address] [place] [address] PCP - General Internal Medicine 05/06/21 documented as of this encounter
--- OUTSIDE RECORDS SUMMARY | 2024-11-03 14:37 | XMS_ITS | Encounter Summary ---
Author Organization [facility] Address [address] [place] [address] Care Team Providers Care Team Automobile Assembler Name Role Phone Caitlyn Bowie MD Primary Care Provider +1- [phone] Encounter Details Date Type Department Care Team (Late st Contact Info) Description 12/28/2021 Scanned Document INTERFACE DEFAULT [address] [place] [address] System, Provider Not In Social History Tobacco [...] 4:00 PM EDT Telemedicine [facility] [address] [facility] Building [address] [place] [address] Ronald Mills MD [address] [place] [address] [address] [place] [address] documented as of this encounter Visit Diagnoses Not on filedocumented in this encounter Additional Health Concerns Infection Onset Date Last Indicated Resolved Time COVID-19 03/05/2022 03/05/2022 03/15/2022 7:18 PM EDT Assessment Noted Time PHQ-9 Depression Total Score: 2 11/07/19 19 2:06 PM EDT documented as of this encounter Care Teams Team Automobile Assembler Relationship Specialty Start Date End Date Caitlyn Bowie MD [address] [address] PCP - General Internal Medicine 05/06/21 documented as of this encounter
--- OUTSIDE RECORDS SUMMARY | 2024-11-03 14:37 | XMS_ITS | Encounter Summary ---
Author Organization [facility] Address [address] [place] [address] Care Team Providers Care Mechanic Chief Name Role Phone Caitlyn Bowie MD Primary Care Provider +1- [phone] Encounter Details Date Type Department Care Team (Late st Contact Info) Description 01/27/2018 Scanned Document [facility] Health Information Management [address] [place] [address] External, Provider Social History Tobacco Use Types [...] Telemedicine [facility] at [facility] 240 [facility] [address] [place], [place] [phone] Ronald Mills MD 240 [facility] A1 [place] [address] documented as of this encounter Visit Diagnoses Not on filedocumented in this encounter Additional Health Concerns Infection Onset Date Last Indicated Resolved Time COVID-19 03/05/2022 03/05/2022 03/15/2022 7:18 PM EDT documented as of this encounter Care Teams Mechanic Chief Relationship Specialty Start Date End Date Caitlyn Bowie MD 3400 [facility] 1 [place] [address] PCP - General Internal Medicine 05/06/21 Henry Kelly MD Pulmonary Department 175 [facility], [address] [place] [address] Physician Pulmonary Disease 09/06/17 06/22/20 documented as of this encounter
--- OUTSIDE RECORDS SUMMARY | 2024-11-03 14:37 | XMS_ITS | Encounter Summary ---
Author Organization [facility] and [facility] Address [address] [place] [address] Care Team Providers Care Surveyor Name Role Phone Caitlyn Bowie MD Primary Care Provider +1- [phone] Encounter Details Date Type Department Care Team (Late st Contact Info) Description 01/26/2018 Scanned Document [facility] Health Information Management [address] [place] [address] External, Provider Social History Tobacco Use Types [...] 4:00 PM EDT Telemedicine Cancer [facility] at [facility] 240 [facility] Building [address] [place] [address] Ronald Mills MD [address] [place] [address] [address]1 [place] [address] documented as of this encounter [...] documented as of this encounter Care Teams Surveyor Relationship Specialty Start Date End Date Caitlyn Bowie MD 3400 [facility] 1 [place] [address] PCP - General Internal Medicine 05/06/21 Henry Kelly MD Pulmonary Department [address] [place] [address], [address] [place] [address] Physician Pulmonary Disease 09/06/17 06/22/20 documented as of this encounter
--- OUTSIDE RECORDS SUMMARY | 2024-11-03 14:37 | XMS_ITS | Encounter Summary ---
Author Organization [facility] Address [address] [place] [address] Care Team Providers Care Longshore Equipment Operator Name Role Phone Caitlyn Bowie MD Primary Care Provider +1- [phone] Encounter Details Date Type Department Care Team (Late st Contact Info) Description 06/07/2021 Scanned Document Onco-Oncology Program at [address] [place] [address] Norma Renee MD [address] [place] [address] 2 [place] [address] Social History Tobacco Use Types [...] 4:00 PM EDT Telemedicine Cancer Center at [address] [place], [place] [address] Ronald Mills MD 240 [facility] [address]1 [place] [address] documented as of this encounter Visit Diagnoses Not on filedocumented in this encounter Additional Health Concerns Infection Onset Date Last Indicated Resolved Time COVID-19 03/05/2022 03/05/2022 03/15/2022 7:18 PM EDT Assessment Noted Time PHQ-9 Depression Total Score: 2 11/07/19 19 2:06 PM EDT documented as of this encounter Care Teams Longshore Equipment Operator Relationship Specialty Start Date End Date Caitlyn Bowie MD [address] [address] PCP - General Internal Medicine 05/06/21 documented as of this encounter
--- OUTSIDE RECORDS SUMMARY | 2024-11-03 14:37 | XMS_ITS | Encounter Summary ---
Author Organization [facility] and [facility] Address [address] [place] [address] Care Team Providers Care Roof Fixer Name Role Phone Caitlyn Bowie MD Primary Care Provider +1- [phone] Encounter Details Date Type Department Care Team (Late st Contact Info) Description 03/14/2018 Scanned Document [facility] Health Information Management [address] [place] [address] External, Provider Social History Tobacco Use Types [...] [facility] 240 [facility] Building [address] [place], [place] [phone] Ronald Mills MD [address] [place] [address] [address]1 [place] [address] documented as of this encounter [...] as of this encounter Care Teams Roof Fixer Relationship Specialty Start Date End Date Caitlyn Bowie MD 3400 [facility] 1 [place] [address] PCP - General Internal Medicine 05/06/21 Henry Kelly MD Pulmonary Department 175 [facility], [address] [place] [address] Physician Pulmonary Disease 09/06/17 06/22/20 documented as of this encounter
--- OUTSIDE RECORDS SUMMARY | 2024-11-03 14:37 | XMS_ITS | Encounter Summary ---
Author Organization [facility] Address [address] [place] [address] Care Team Providers Care Motor Coach Driver Name Role Phone Caitlyn Bowie MD Primary Care Provider +1- [phone] Encounter Details Date Type Department Care Team (Late st Contact Info) Description 04/16/2018 Scanned Document [facility] Health Information Management [address] [place] [address] External, Provider Social History Tobacco Use Types [...] Center at [facility] 240 [facility] Building [address] [place], [place] [id number] Ronald Mills MD 240 [facility] A1 [place] [address] documented as of this encounter Visit Diagnoses Not on filedocumented in this encounter Additional Health Concerns Infection Onset Date Last Indicated Resolved Time COVID-19 03/05/2022 03/05/2022 03/15/2022 7:18 PM EDT documented as of this encounter Care Teams Motor Coach Driver Relationship Specialty Start Date End Date Caitlyn Bowie MD 3400 [facility] 1 [place] [address] PCP - General Internal Medicine 05/06/21 Henry Kelly MD Pulmonary Department 175 [facility], [address] [place] [address] Physician Pulmonary Disease 09/06/17 06/22/20 documented as of this encounter
--- OUTSIDE RECORDS SUMMARY | 2024-11-03 14:37 | XMS_ITS | Encounter Summary ---
Author Organization [facility] Address [address] [place] [address] Care Team Providers Care Nurse Recruiter Name Role Phone Caitlyn Bowie MD Primary Care Provider +1- [phone] Encounter Details Date Type Department Care Team (Late st Contact Info) Description 06/07/2021 Scanned Document Onco-Oncology Program at [address] [place] [address] Norma Renee MD [address] [place] [address] 2 [place] [address] Social History Tobacco Use Types [...] 4:00 PM EDT Telemedicine Cancer Center at [address] [place], [place] [address] Ronald Mills MD 240 [facility] A1 [place] [address] documented as of this encounter Visit Diagnoses Not on filedocumented in this encounter Additional Health Concerns Infection Onset Date Last Indicated Resolved Time COVID-19 03/05/2022 03/05/2022 03/15/2022 7:18 PM EDT Assessment Noted Time PHQ-9 Depression Total Score: 2 11/07/19 19 2:06 PM EDT documented as of this encounter Care Teams Nurse Recruiter Relationship Specialty Start Date End Date Caitlyn Bowie MD [address] [address] PCP - General Internal Medicine 05/06/21 documented as of this encounter
--- OUTSIDE RECORDS SUMMARY | 2024-11-03 14:37 | XMS_ITS | Encounter Summary ---
Author Organization [facility] and [facility] Address [address] [place] [address] Care Team Providers Care Quantitative Strategy Analyst Name Role Phone Caitlyn Bowie MD Primary Care Provider +1- [phone] Encounter Details Date Type Department Care Team (Late st Contact Info) Description 11/18/2021 Scanned Document INTERFACE DEFAULT [address] [place] [address] System, Provider Not In Social History Tobacco [...] [facility] at [facility] 240 [facility] [address] [place] [address] Ronald Mills MD [address] [place] [address] [address] [place] [address] documented as of this encounter Visit Diagnoses Not on filedocumented in this encounter Additional Health Concerns Infection Onset Date Last Indicated Resolved Time COVID-19 03/05/2022 03/05/2022 03/15/2022 7:18 PM EDT Assessment Noted Time PHQ-9 Depression Total Score: 2 11/07/19 19 2:06 PM EDT documented as of this encounter Care Teams Quantitative Strategy Analyst Relationship Specialty Start Date End Date Caitlyn Bowie MD [address] [address] PCP - General Internal Medicine 05/06/21 documented as of this encounter
--- OUTSIDE RECORDS SUMMARY | 2024-11-03 14:37 | XMS_ITS | Encounter Summary ---
Author Organization [facility] Address [address] [place] [address] Care Team Providers Care Network Architect Name Role Phone Caitlyn Bowie MD Primary Care Provider +1- [phone] Encounter Details Date Type Department Care Team (Late st Contact Info) Description 11/07/2014 Scanned Document [facility] Health Information Management [address] [place] [address] External, Provider Social History Tobacco Use Types [...] Center at [facility] 240 [facility] Building [address] [place], [place] [address] Ronald Mills MD 240 [facility] A1 [place] [address] documented as of this encounter Visit Diagnoses Not on filedocumented in this encounter Additional Health Concerns Infection Onset Date Last Indicated Resolved Time COVID-19 03/05/2022 03/05/2022 03/15/2022 7:18 PM EDT documented as of this encounter Care Teams Network Architect Relationship Specialty Start Date End Date Caitlyn Bowie MD 3400 [facility] 1 [place] [address] PCP - General Internal Medicine 05/06/21 Henry Kelly MD Pulmonary Department 175 [facility], [address] [place] [address] Physician Pulmonary Disease 09/06/17 06/22/20 documented as of this encounter
--- OUTSIDE RECORDS SUMMARY | 2024-11-03 14:37 | XMS_ITS | Encounter Summary ---
Author Organization [facility] and [facility] Address [address] [place] [address] Care Team Providers Care Senior Director Insight Name Role Phone Caitlyn Bowie MD Primary Care Provider +1- [phone] Reason for Visit * Reason Comments FYI Encounter Details Date Type Department Care Team (Late st Contact Info) Description 05/24/2021 Telephone [facility] at [facility] at [address] [place] [address] 2nd [place], [place] [id number] Solo Henry MD [address] [place] [address] FYI Social History Tobacco Use Types [...] Telemedicine Cancer Center at [facility] 240 [facility] Building [address] [place] [address] Ronald Mills MD 240 [facility] Max A1 [place] [address] documented as of this encounter Visit Diagnoses Not on filedocumented in this encounter Additional Health Concerns Infection Onset Date Last Indicated Resolved Time COVID-19 03/05/2022 03/05/2022 03/15/2022 7:18 PM EDT Assessment Noted Time PHQ-9 Depression Total Score: 2 11/07/19 19 2:06 PM EDT documented as of this encounter Care Teams Senior Director Insight Relationship Specialty Start Date End Date Caitlyn Bowie MD [address] [facility] [place] 1 [place] [address] PCP - General Internal Medicine 05/06/21 documented as of this encounter
--- OUTSIDE RECORDS SUMMARY | 2024-11-03 14:37 | XMS_ITS | Encounter Summary ---
Author Organization [facility] and [facility] Address [address] [place] [address] Care Team Providers Care Cert Occupational Therapy Asst Name Role Phone Caitlyn Bowie MD Primary Care Provider +1- [phone] Encounter Details Date Type Department Care Team (Late st Contact Info) Description 04/18/2018 Scanned Document [facility] Health Information Management [address] [place] [address] External, Provider Social History Tobacco Use Types [...] at [facility] 240 [facility] Building [address] [place], [place] [address] Ronald Mills MD [address] [place] [address] [address]1 [place] [address] documented as of this encounter [...] as of this encounter Care Teams Cert Occupational Therapy Asst Relationship Specialty Start Date End Date Caitlyn Bowie MD 3400 [facility] 1 [place] [address] PCP - General Internal Medicine 05/06/21 Henry Kelly MD Pulmonary Department 175 [facility], [address] [place] [address] Physician Pulmonary Disease 09/06/17 06/22/20 documented as of this encounter
--- OUTSIDE RECORDS SUMMARY | 2024-11-03 14:37 | XMS_ITS | Encounter Summary ---
Author Organization [facility] and [facility] Address [address] [place] [address] Care Team Providers Care Carbon Setter Name Role Phone Caitlyn Bowie MD Primary Care Provider +1- [phone] Encounter Details Date Type Department Care Team (Late st Contact Info) Description 09/24/2021 Scanned Document INTERFACE DEFAULT [address] [place] [phone] System, Provider Not In Social History Tobacco [...] [facility] 240 [facility] Building [address] [place] [address] Ronald Mills MD [address] [place] [address] [address] [place] [address] documented as of this [...] documented as of this encounter Care Teams Carbon Setter Relationship Specialty Start Date End Date Caitlyn Bowie MD [facility] [address] [address] PCP - General Internal Medicine 05/06/21 documented as of this encounter
--- OUTSIDE RECORDS SUMMARY | 2024-11-03 14:37 | XMS_ITS | Encounter Summary ---
Author Organization [facility] and [facility] Address [address] [place] [address] Care Team Providers Care Tax Staff Accountant Name Role Phone Caitlyn Bowie MD Primary Care Provider +1- [phone] Encounter Details Date Type Department Care Team (Late st Contact Info) Description 02/02/2018 Scanned Document [facility] Health Information Management [address] [place] [address] External, Provider Social History Tobacco Use Types [...] at [facility] 240 [facility] Building [address] [place], [place] [phone] Ronald Mills MD 240 [facility] A1 [place] [address] documented as of this encounter Visit Diagnoses Not on filedocumented in this encounter Additional Health Concerns Infection Onset Date Last Indicated Resolved Time COVID-19 03/05/2022 03/05/2022 03/15/2022 7:18 PM EDT documented as of this encounter Care Teams Tax Staff Accountant Relationship Specialty Start Date End Date Caitlyn Bowie MD 3400 [facility] 1 [place] [address] PCP - General Internal Medicine 05/06/21 Henry Kelly MD Pulmonary Department 175 [facility], [address] [place] [address] Physician Pulmonary Disease 09/06/17 06/22/20 documented as of this encounter
--- OUTSIDE RECORDS SUMMARY | 2024-11-03 14:37 | XMS_ITS | Encounter Summary ---
Author Organization [facility] and [facility] Address [address] [place] [address] Care Team Providers Care Animal Health Technician Name Role Phone Caitlyn Bowie MD Primary Care Provider +1- [phone] Encounter Details Date Type Department Care Team (Late Contact Info) Description 10/29/2021 Scanned Document [facility] Health Information Management [address] [place] [address] External, Provider Social History Tobacco Use Types [...] [facility] Building [address] [place], [place] [phone] Ronald Mills MD [address] [place] [address] [address]1 [place] [address] documented as of this encounter [...] as of this encounter Care Teams Animal Health Technician Relationship Specialty Start Date End Date Caitlyn Bowie MD [address] [address] PCP - General Internal Medicine 05/06/21 documented as of this encounter
--- OUTSIDE RECORDS SUMMARY | 2024-11-03 14:37 | XMS_ITS | Encounter Summary ---
Author Organization [facility] and [facility] Address [address] [place] [address] Care Team Providers Care Special Skills Officer Name Role Phone Caitlyn Bowie MD Primary Care Provider +1- [phone] Encounter Details Date Type Department Care Team (Late st Contact Info) Description 04/27/2021 Scanned Document INTERFACE DEFAULT [address] [place] [address] System, Provider Not In Social History Tobacco [...] [facility] 240 [facility] Building [address] [place] [address] Ronald Mills MD [address] [place] [address] [address] [place] [address] documented as of this encounter [...] as of this encounter Care Teams Special Skills Officer Relationship Specialty Start Date End Date Caitlyn Bowie MD [address] [address] PCP - General Internal Medicine 05/06/21 documented as of this encounter
--- OUTSIDE RECORDS SUMMARY | 2024-11-03 14:37 | XMS_ITS | Encounter Summary ---
Author Organization [facility] and [facility] Address [address] [place] [address] Care Team Providers Care Tariff Supervisor Name Role Phone Caitlyn Bowie MD Primary Care Provider +1- [phone] Encounter Details Date Type Department Care Team (Late st Contact Info) Description 04/28/2021 Scanned Document INTERFACE DEFAULT [address] [place] [address] System, Provider Not In Social History Tobacco [...] [facility] at [facility] 240 [facility] Building [address] [place], [place] [address] Ronald Mills MD [address] [place] [address] [address] [place] [address] documented as of this encounter [...] documented as of this encounter Care Teams Tariff Supervisor Relationship Specialty Start Date End Date Caitlyn Bowie MD [address] [address] PCP - General Internal Medicine 05/06/21 documented as of this encounter
--- OUTSIDE RECORDS SUMMARY | 2024-11-03 14:37 | XMS_ITS | Encounter Summary ---
Author Organization [facility] and [facility] Address [address] [place] [address] Care Team Providers Care Cyanide Pot Tender Name Role Phone Caitlyn Bowie MD Primary Care Provider +1- [phone] Encounter Details Date Type Department Care Team (Late st Contact Info) Description 04/24/2021 Scanned Document INTERFACE DEFAULT [address] [place] [address] System, Provider Not In Social History Tobacco [...] [facility] at [facility] 240 [facility] Building [address] [place], [place] [address] Ronald Mills MD [address] [place] [address] [address] [place] [address] documented as of this encounter [...] documented as of this encounter Care Teams Cyanide Pot Tender Relationship Specialty Start Date End Date Caitlyn Bowie MD [address] [address] PCP - General Internal Medicine 05/06/21 documented as of this encounter
--- OUTSIDE RECORDS SUMMARY | 2024-11-03 14:37 | XMS_ITS | Encounter Summary ---
Author Organization [facility] and [facility] Address [address] [place] [address] Care Team Providers Care Mailroom Manager Name Role Phone Caitlyn Bowie MD Primary Care Provider +1- [phone] Encounter Details Date Type Department Care Team (Late st Contact Info) Description 11/09/2014 Scanned Document [facility] Health Information Management [address] [place] [address] External, Provider Social History Tobacco Use Types [...] [facility] 240 [facility] Building [address] [place], [place] [phone] Ronald Mills MD 240 [facility] A1 [place] [address] documented as of this encounter Visit Diagnoses Not on filedocumented in this encounter Additional Health Concerns Infection Onset Date Last Indicated Resolved Time COVID-19 03/05/2022 03/05/2022 03/15/2022 7:18 PM EDT documented as of this encounter Care Teams Mailroom Manager Relationship Specialty Start Date End Date Caitlyn Bowie MD 3400 [facility] 1 [place] [address] PCP - General Internal Medicine 05/06/21 Henry Kelly MD Pulmonary Department 175 [facility], [address] [place] [address] Physician Pulmonary Disease 09/06/17 06/22/20 documented as of this encounter
--- OUTSIDE RECORDS SUMMARY | 2024-11-03 14:37 | XMS_ITS | Encounter Summary ---
Author Organization [facility] and [facility] Address [address] [place] [address] Care Team Providers Care Dynamics Ax Consultant Name Role Phone Caitlyn Bowie MD Primary Care Provider +1- [phone] Encounter Details Date Type Department Care Team (Late st Contact Info) Description 02/01/2018 Scanned Document [facility] Health Information Management [address] [place] [address] External, Provider Social History Tobacco Use Types [...] [facility] at [facility] 240 [facility] Building [address] [place], [place] [address] Ronald Mills MD [address] [place] [address] [address] [place] [address] documented as of this encounter [...] documented as of this encounter Care Teams Dynamics Ax Consultant Relationship Specialty Start Date End Date Caitlyn Bowie MD 3400 [facility] 1 [place] [address] PCP - General Internal Medicine 05/06/21 Henry Kelly MD Pulmonary Department 175 [facility], [address] [place] [address] Physician Pulmonary Disease 09/06/17 06/22/20 documented as of this encounter
--- OUTSIDE RECORDS SUMMARY | 2024-11-03 14:37 | XMS_ITS | Encounter Summary ---
Author Organization [facility] and [facility] Address [address] [place] [address] Care Team Providers Care Clerical Support Specialist Name Role Phone Caitlyn Bowie MD Primary Care Provider +1- [phone] Reason for Visit * Reason Comments Triage Encounter Details Date Type Department Care Team (Late st Contact Info) Description 10/18/2021 Telephone [facility] at [address] - [address] [address] Ronald Mills MD [address] [place] [address] Triage Social History Tobacco Use Types [...] [facility] at [facility] 240 [facility] Building [address] [place], [place] [address] Ronald Mills MD 240 [facility] Max [address] [place] [address] documented as of this encounter Visit Diagnoses Not on filedocumented in this encounter Additional Health Concerns Infection Onset Date Last Indicated Resolved Time COVID-19 03/05/2022 03/05/2022 03/15/2022 7:18 PM EDT Assessment Noted Time PHQ-9 Depression Total Score: 2 11/07/19 19 2:06 PM EDT documented as of this encounter Care Teams Clerical Support Specialist Relationship Specialty Start Date End Date Caitlyn Bowie MD [address] [address] PCP - General Internal Medicine 05/06/21 documented as of this encounter
--- OUTSIDE RECORDS SUMMARY | 2024-11-03 14:37 | XMS_ITS | Encounter Summary ---
Author Organization [facility] and [facility] Address [address] [place] [address] Care Team Providers Care Adult Care Manager Name Role Phone Caitlyn Bowie MD Primary Care Provider +1- [phone] Encounter Details Date Type Department Care Team (Late st Contact Info) Description 12/04/2014 Scanned Document [facility] Health Information Management [address] [place] [address] External, Provider Social History Tobacco Use Types [...] 4:00 PM EDT Telemedicine [facility] at [facility] 240 [facility] Building [address] [place], [place] [phone] Ronald Mills MD 240 [facility] Max [address] [place] [address] documented as of this encounter Procedures Procedure Name Priority Date/Time Associated Diagnosis Comments LAB SCAN Routine 12/04/2014 documented in this encounter Results * Lab Scan (12/04/2014) Blood specimen (specimen) us Provider External LAB BLOOD ORDERABLES Final Res ult [facility] documented in this encounter Visit Diagnoses Not on filedocumented in this encounter Additional Health Concerns Infection Onset Date Last Indicated Resolved Time COVID-19 03/05/2022 03/05/2022 03/15/2022 7:18 PM EDT documented as of this encounter Care Teams Adult Care Manager Relationship Specialty Start Date End Date Caitlyn Bowie MD 3400 [facility] 1 [place] [address] PCP - General Internal Medicine 05/06/21 Henry Kelly MD Pulmonary Department 175 [facility], [address] [place] [address] Physician Pulmonary Disease 09/06/17 06/22/20 documented as of this encounter
--- OUTSIDE RECORDS SUMMARY | 2024-11-03 14:37 | XMS_ITS | Encounter Summary ---
Author Organization [facility] and [facility] Address 20 [place] [address] Care Team Providers Care Consumer Loan Manager Name Role Phone Caitlyn Bowie MD Primary Care Provider +1- [phone] Encounter Details Date Type Department Care Team (Late st Contact Info) Description 05/17/2021 Scanned Document Cancer Center at [address] [address] External, Provider Social History Tobacco Use Types [...] [facility] 240 [facility] [address] [place], [place] [phone] Ronald Mills MD [address] [place] [address] [address] [place] [address] documented as of this encounter [...] as of this encounter Care Teams Consumer Loan Manager Relationship Specialty Start Date End Date Caitlyn Bowie MD [address] [address] PCP - General Internal Medicine 05/06/21 documented as of this encounter
--- OUTSIDE RECORDS SUMMARY | 2024-11-03 14:37 | XMS_ITS | Encounter Summary ---
Author Organization [facility] and [facility] Address [address] [place] [address] Care Team Providers Care Rug Hooker Name Role Phone Caitlyn Bowie MD Primary Care Provider +1- [phone] Encounter Details Date Type Department Care Team (Late st Contact Info) Description 01/30/2018 Scanned Document [facility] Health Information Management [address] [place] [address] External, Provider Social History Tobacco Use Types [...] [facility] at [facility] 240 [facility] Building [address] [place] [address] Ronald Mills MD [address] [place] [address] [address] [place] [address] documented as of this encounter [...] as of this encounter Care Teams Rug Hooker Relationship Specialty Start Date End Date Caitlyn Bowie MD [facility] 1 [place] [address] PCP - General Internal Medicine 05/06/21 Henry Kelly MD Pulmonary Department 175 [facility], [address] [place] [address] Physician Pulmonary Disease 09/06/17 06/22/20 documented as of this encounter
--- OUTSIDE RECORDS SUMMARY | 2024-11-03 14:37 | XMS_ITS | Encounter Summary ---
Author Organization [facility] and [facility] Address [address] [place] [address] Care Team Providers Care Lard Maker Name Role Phone Caitlyn Bowie MD Primary Care Provider +1- [phone] Encounter Details Date Type Department Care Team (Late st Contact Info) Description 04/25/2021 Scanned Document INTERFACE DEFAULT [address] [place] [address] System, Provider Not In Social History Tobacco [...] [facility] at [facility] 240 [facility] Building [address] [place], [place] [phone] Ronald Mills MD [address] [place] [address] [address] [place] [address] documented as of this encounter [...] documented as of this encounter Care Teams Lard Maker Relationship Specialty Start Date End Date Caitlyn Bowie MD [address] [address] PCP - General Internal Medicine 05/06/21 documented as of this encounter
--- OUTSIDE RECORDS SUMMARY | 2024-11-03 14:37 | XMS_ITS | Encounter Summary ---
Author Organization [facility] and [facility] Address [address] [place] [address] Care Team Providers Care Critical Care Paramedic Name Role Phone Caitlyn Bowie MD Primary Care Provider +1- [phone] Encounter Details Date Type Department Care Team (Late st Contact Info) Description 05/27/2021 Telephone [facility] at [address] [address] Ronald Mills MD [address] [place] [address] Social History Tobacco Use Types Packs/Day [...] [facility] 240 [facility] [address] [place], [place] [address] Ronald Mills MD 240 [facility] Max [address] [place] [address] documented as of this encounter Visit Diagnoses Not on filedocumented in this encounter Additional Health Concerns Infection Onset Date Last Indicated Resolved Time COVID-19 03/05/2022 03/05/2022 03/15/2022 7:18 PM EDT Assessment Noted Time PHQ-9 Depression Total Score: 2 11/07/19 19 2:06 PM EDT documented as of this encounter Care Teams Critical Care Paramedic Relationship Specialty Start Date End Date Caitlyn Bowie MD [address] [address] PCP - General Internal Medicine 05/06/21 documented as of this encounter
--- OUTSIDE RECORDS SUMMARY | 2024-11-03 14:37 | XMS_ITS | Encounter Summary ---
Author Organization [facility] and [facility] Address [address] [place] [address] Care Team Providers Care Property Claims Adjuster Name Role Phone Caitlyn Bowie MD Primary Care Provider +1- [phone] Reason for Visit * Reason Comments Advice Only Encounter Details Date Type Department Care Team ([facility] st Contact Info) Description 06/01/2021 Telephone [facility] at [address] [phone] Ronald Mills MD [address] [place] [address] Advice Only Social History Tobacco Use [...] added that she's called before and sent [employer] messages but hasn't received a reply,[phone]. documented in this encounter Plan of Treatment Upcoming Encounters Date Type Department Care Team (Late st Contact Info) Description 04/25/2025 4:00 PM EDT Telemedicine [facility] 240 [facility] Building [address] [place], [place] [phone] Ronald Mills MD 240 [facility] Max [address] [place] [address] documented as of this encounter Visit Diagnoses Not on filedocumented in this encounter Additional Health Concerns Infection Onset Date Last Indicated Resolved Time COVID-19 03/05/2022 03/05/2022 03/15/2022 7:18 PM EDT Assessment Noted Time PHQ-9 Depression Total Score: 2 11/07/19 19 2:06 PM EDT documented as of this encounter Care Teams Property Claims Adjuster Relationship Specialty Start Date End Date Caitlyn Bowie MD 3400 [facility] 1 [place] [address] PCP - General Internal Medicine 05/06/21 documented as of this encounter
--- OUTSIDE RECORDS SUMMARY | 2024-11-03 14:37 | XMS_ITS | Encounter Summary ---
Author Organization [facility] Address [address] [place] [address] Care Team Providers Care Curtain Fitter Name Role Phone Caitlyn Bowie MD Primary Care Provider +1- [phone] Encounter Details Date Type Department Care Team (Late st Contact Info) Description 04/29/2021 Scanned Document INTERFACE DEFAULT [address] [place] [address] System, Provider Not In Social History Tobacco [...] [facility] 240 [facility] Building [address] [place] [address] Ronald Mills MD [address] [place] [address] [address] [place] [address] documented as of this encounter [...] documented as of this encounter Care Teams Curtain Fitter Relationship Specialty Start Date End Date Caitlyn Bowie MD [address] [address] PCP - General Internal Medicine 05/06/21 documented as of this encounter
--- OUTSIDE RECORDS SUMMARY | 2024-11-03 14:37 | XMS_ITS | Encounter Summary ---
Author Organization [facility] and [facility] Address 20 [place] [address] Care Team Providers Care Medical Appliance Maker Name Role Phone Caitlyn Bowie MD Primary Care Provider +1- [phone] Encounter Details Date Type Department Care Team (Late st Contact Info) Description 11/19/2021 Scanned Document Cardiovascular Medicine at [address] [place] [address] Norma Renee MD [address] [place] [phone] Social History Tobacco Use Types Packs/Day [...] 4:00 PM EDT Telemedicine Cancer Center at [address] [place] [address] Ronald Mills MD 240 [facility] A1 [place] [address] documented as of this encounter Visit Diagnoses Not on filedocumented in this encounter Additional Health Concerns Infection Onset Date Last Indicated Resolved Time COVID-19 03/05/2022 03/05/2022 03/15/2022 7:18 PM EDT Assessment Noted Time PHQ-9 Depression Total Score: 2 11/07/19 19 2:06 PM EDT documented as of this encounter Care Teams Medical Appliance Maker Relationship Specialty Start Date End Date Caitlyn Bowie MD [address] [address] PCP - General Internal Medicine 05/06/21 documented as of this encounter
--- OUTSIDE RECORDS SUMMARY | 2024-11-03 14:37 | XMS_ITS | Encounter Summary ---
Author Organization [facility] and [facility] Address [address] [place] [address] Care Team Providers Care Barrel Builder Name Role Phone Caitlyn Bowie MD Primary Care Provider +1- [phone] Encounter Details Date Type Department Care Team (Late st Contact Info) Description 01/26/2018 Scanned Document [facility] Health Information Management [address] [place] [address] External, Provider Social History Tobacco Use Types [...] [facility] 240 [facility] Building [address] [place], [place] [phone] Ronald Mills MD [address] [place] [address] [address]1 [place] [address] documented as of this encounter [...] as of this encounter Care Teams Barrel Builder Relationship Specialty Start Date End Date Caitlyn Bowie MD 3400 [facility] 1 [place] [address] PCP - General Internal Medicine 05/06/21 Henry Kelly MD Pulmonary Department 175 [facility], [address] [place] [address] Physician Pulmonary Disease 09/06/17 06/22/20 documented as of this encounter
--- OUTSIDE RECORDS SUMMARY | 2024-11-03 14:37 | XMS_ITS | Encounter Summary ---
Author Organization [facility] and [facility] Address 20 [place] [address] Care Team Providers Care Blind Stitch Machine Operator Name Role Phone Caitlyn Bowie MD Primary Care Provider +1- [phone] Encounter Details Date Type Department Care Team (Late st Contact Info) Description 03/26/2015 Scanned Document Cardiovascular Medicine at [address] [place] [address] Norma Renee MD [address] [place] [phone] Social History Tobacco Use Types Packs/Day Years [...] 4:00 PM EDT Telemedicine Cancer Center at [address] [place], [place] [phone] Ronald Mills MD [address] [place] [address] [address]1 [place] [address] documented as of this encounter Visit Diagnoses Not on filedocumented in this encounter Additional Health Concerns Infection Onset Date Last Indicated Resolved Time COVID-19 03/05/2022 03/05/2022 03/15/2022 7:18 PM EDT documented as of this encounter Care Teams Blind Stitch Machine Operator Relationship Specialty Start Date End Date Caitlyn Bowie MD 3400 [facility] 1 [place] [address] PCP - General Internal Medicine 05/06/21 Henry Kelly MD Pulmonary Department 175 [facility], [address] [place] [address] Physician Pulmonary Disease 09/06/17 06/22/20 documented as of this encounter
--- OUTSIDE RECORDS SUMMARY | 2024-11-03 14:37 | XMS_ITS | Encounter Summary ---
Author Organization [facility] and [facility] Address [address] [place] [phone] Care Team Providers Care Organic Chemistry Professor Name Role Phone Caitlyn Bowie MD Primary Care Provider +1- [phone] Encounter Details Date Type Department Care Team (Late st Contact Info) Description 03/11/2015 Scanned Document [facility] Health Information Management [address] [place] [phone] External, Provider Social History Tobacco Use Types [...] [facility] 240 [facility] Building [address] [place], [place] [phone] Ronald Mills MD 240 [facility] Max [address]1 [place] [address] documented as of this encounter Procedures Procedure Name Priority Date/Time Associated Diagnosis Comments LAB SCAN Routine 03/11/2015 documented in this encounter Results * Lab Scan (03/11/2015) Blood specimen (specimen) us Provider External LAB BLOOD ORDERABLES Edited Re sult - Final [facility] documented in this encounter Visit Diagnoses Not on filedocumented in this encounter Additional Health Concerns Infection Onset Date Last Indicated Resolved Time COVID-19 03/05/2022 03/05/2022 03/15/2022 7:18 PM EDT documented as of this encounter Care Teams Organic Chemistry Professor Relationship Specialty Start Date End Date Caitlyn Bowie MD 3400 [facility] 1 [place] [address] PCP - General Internal Medicine 05/06/21 Henry Kelly MD Pulmonary Department 175 [facility], [address] [place] [address] Physician Pulmonary Disease 09/06/17 06/22/20 documented as of this encounter
--- OUTSIDE RECORDS SUMMARY | 2024-11-03 14:37 | XMS_ITS | Encounter Summary ---
Author Organization [facility] and [facility] Address [address] [place] [address] Care Team Providers Care Rolling Mill Operator Helper Name Role Phone Caitlyn Bowie MD Primary Care Provider +1- [phone] Encounter Details Date Type Department Care Team (Late st Contact Info) Description 05/05/2021 Scanned Document INTERFACE DEFAULT [address] [place] [address] System, Provider Not In Social History Tobacco [...] [facility] 240 [facility] Building [address] [place] [address] Ronald Mills MD [address] [place] [address] [address]1 [place] [address] documented as of this encounter Visit Diagnoses Not on filedocumented in this encounter Additional Health Concerns Infection Onset Date Last Indicated Resolved Time COVID-19 03/05/2022 03/05/2022 03/15/2022 7:18 PM EDT Assessment Noted Time PHQ-9 Depression Total Score: 2 11/07/19 19 2:06 PM EDT documented as of this encounter Care Teams Rolling Mill Operator Helper Relationship Specialty Start Date End Date Caitlyn Bowie MD [address] [address] PCP - General Internal Medicine 05/06/21 documented as of this encounter
--- OUTSIDE RECORDS SUMMARY | 2024-11-03 14:37 | XMS_ITS | Encounter Summary ---
Author Organization [facility] Address [address] [place] [address] Care Team Providers Care Clinical Specialist Name Role Phone Caitlyn Bowie MD Primary Care Provider +1- [phone] Encounter Details Date Type Department Care Team (Late st Contact Info) Description 10/08/2021 Scanned Document INTERFACE DEFAULT [address] [place] [address] System, Provider Not In Social History Tobacco [...] – [facility] 240 [facility] Building [address] [place], [place] [phone] Ronald Mills MD [address] [place] [address] Max [address] [place] [address] documented as of this encounter [...] as of this encounter Care Teams Clinical Specialist Relationship Specialty Start Date End Date Caitlyn Bowie MD [address] [address] PCP - General Internal Medicine 05/06/21 documented as of this encounter
--- OUTSIDE RECORDS SUMMARY | 2024-11-03 14:37 | XMS_ITS | Encounter Summary ---
Author Organization [facility] Address 20 [place] [address] Care Team Providers Care Tank Worker Name Role Phone Caitlyn Bowie MD Primary Care Provider +1- [phone] Encounter Details Date Type Department Care Team (Late st Contact Info) Description 04/03/2018 Scanned Document [facility] [address] [place] [phone] Provider, historical . Social History Tobacco Use [...] [facility] 240 [facility] Building [address] [place], [place] [phone] Ronald Mills MD [address] [place] [address] [address] [place] [address] documented as of this encounter [...] as of this encounter Care Teams Tank Worker Relationship Specialty Start Date End Date Caitlyn Bowie MD 3400 [facility] 1 [place] [address] PCP - General Internal Medicine 05/06/21 Henry Kelly MD Pulmonary Department 175 [facility], [address] [place] [address] Physician Pulmonary Disease 09/06/17 06/22/20 documented as of this encounter
--- OUTSIDE RECORDS SUMMARY | 2024-11-03 14:37 | XMS_ITS | Encounter Summary ---
Author Organization [facility] and [facility] Address [address] [place] [address] Care Team Providers Care Dynamics Ax Developer Name Role Phone Caitlyn Bowie MD Primary Care Provider +1- [phone] Encounter Details Date Type Department Care Team (Late st Contact Info) Description 08/07/2018 Scanned Document [facility] Health Information Management [address] [place] [address] External, Provider Social History Tobacco Use Types [...] [facility] 240 [facility] Building [address] [place], [place] [phone] Ronald Mills MD [address] [place] [address] [address]1 [place] [address] documented as of this encounter Visit Diagnoses Not on filedocumented in this encounter Additional Health Concerns Infection Onset Date Last Indicated Resolved Time COVID-19 03/05/2022 03/05/2022 03/15/2022 7:18 PM EDT documented as of this encounter Care Teams Dynamics Ax Developer Relationship Specialty Start Date End Date Caitlyn Bowie MD 3400 [facility] 1 [place] [address] PCP - General Internal Medicine 05/06/21 Henry Kelly MD Pulmonary Department 175 [facility], [address] [place] [address] Physician Pulmonary Disease 09/06/17 06/22/20 documented as of this encounter
--- OUTSIDE RECORDS SUMMARY | 2024-11-03 14:37 | XMS_ITS | Encounter Summary ---
Author Organization [facility] and [facility] Address [address] [place] [address] Care Team Providers Care Driller Hand Name Role Phone Caitlyn Bowie MD Primary Care Provider +1- [phone] Encounter Details Date Type Department Care Team (Late st Contact Info) Description 01/28/2018 Scanned Document [facility] Health Information Management [address] [place] [address] External, Provider Social History Tobacco Use Types [...] [facility] 240 [facility] Building [address] [place], [place] [phone] Ronald Mills MD [address] [place] [address] [address]1 [place] [address] documented as of this encounter [...] as of this encounter Care Teams Driller Hand Relationship Specialty Start Date End Date Caitlyn Bowie MD [facility] 1 [place] [address] PCP - General Internal Medicine 05/06/21 Henry Kelly MD Pulmonary Department 175 [facility], [address] [place] [address] Physician Pulmonary Disease 09/06/17 06/22/20 documented as of this encounter
--- OUTSIDE RECORDS SUMMARY | 2024-11-03 14:37 | XMS_ITS | Encounter Summary ---
Author Organization [facility] Address [address] [place] [address] Care Team Providers Care Dye Feeder Name Role Phone Caitlyn Bowie MD Primary Care Provider +1- [phone] Encounter Details Date Type Department Care Team (Late st Contact Info) Description 03/13/2015 Scanned Document [facility] Health Information Management [address] [place] [address] External, Provider Social History Tobacco Use Types [...] [facility] 240 [facility] Building [address] [place], [place] [phone] Ronald Mills MD 240 [facility] [address] [place] [address] documented as of this encounter Procedures Procedure Name Priority Date/Time Associated Diagnosis Comments LAB SCAN Routine 02/16/2015 LAB SCAN Routine 02/16/2015 documented in this encounter Results * Lab Scan (02/16/2015) Blood specimen (specimen) us Provider External LAB BLOOD ORDERABLES Final Res ult Performing Organization Address [facility]/ZIP Co de Phone Number [facility] * Lab Scan (02/16/2015) Blood specimen (specimen) Provider External LAB BLOOD ORDERABLES Final Res ult Performing Organization Address [facility] Co de Phone Number [facility] documented in this encounter Visit Diagnoses Not on filedocumented in this encounter Additional Health Concerns Infection Onset Date Last Indicated Resolved Time COVID-19 03/05/2022 03/05/2022 03/15/2022 7:18 PM EDT documented as of this encounter Care Teams Dye Feeder Relationship Specialty Start Date End Date Caitlyn Bowie MD 3400 [facility] 1 [place] [address] PCP - General Internal Medicine 05/06/21 Henry Kelly MD Pulmonary Department 175 [facility], [address] [place] [address] Physician Pulmonary Disease 09/06/17 06/22/20 documented as of this encounter
--- OUTSIDE RECORDS SUMMARY | 2024-11-03 14:37 | XMS_ITS | Encounter Summary ---
Author Organization [facility] and [facility] Address [address] [place] [address] Care Team Providers Care Tobacco Conditioner Name Role Phone Caitlyn Bowie MD Primary Care Provider +1- [phone] Encounter Details Date Type Department Care Team (Late st Contact Info) Description 01/28/2018 Scanned Document [facility] Health Information Management [address] [place] [address] External, Provider Social History Tobacco Use Types [...] at [facility] 240 [facility] [address] [place], [place] [id number] Ronald Mills MD 240 [facility] A1 [place] [address] documented as of this encounter Visit Diagnoses Not on filedocumented in this encounter Additional Health Concerns Infection Onset Date Last Indicated Resolved Time COVID-19 03/05/2022 03/05/2022 03/15/2022 7:18 PM EDT documented as of this encounter Care Teams Tobacco Conditioner Relationship Specialty Start Date End Date Caitlyn Bowie MD 3400 [facility] 1 [place] [address] PCP - General Internal Medicine 05/06/21 Henry Kelly MD Pulmonary Department 175 [facility], [address] [place] [address] Physician Pulmonary Disease 09/06/17 06/22/20 documented as of this encounter
--- OUTSIDE RECORDS SUMMARY | 2024-11-03 14:37 | XMS_ITS | Encounter Summary ---
Author Organization [facility] and [facility] Address [address] [place] [address] Care Team Providers Care Burner Hand Name Role Phone Caitlyn Bowie MD Primary Care Provider +1- [phone] Encounter Details Date Type Department Care Team (Late st Contact Info) Description 01/27/2018 Scanned Document [facility] Health Information Management [address] [place] [address] External, Provider Social History Tobacco Use Types [...] [facility] 240 [facility] Building [address] [place] [address] Ronald Mills MD 240 [facility] A1 [place] [address] documented as of this encounter [...] documented as of this encounter Care Teams Burner Hand Relationship Specialty Start Date End Date Caitlyn Bowie MD 3400 [facility] 1 [place] [address] PCP - General Internal Medicine 05/06/21 Henry Kelly MD Pulmonary Department 175 [facility], [address] [place] [address] Physician Pulmonary Disease 09/06/17 06/22/20 documented as of this encounter
--- OUTSIDE RECORDS SUMMARY | 2024-11-03 14:37 | XMS_ITS | Encounter Summary ---
Author Organization [facility] and [facility] Address [address] [place] [address] Care Team Providers Care Customer Sales Representative Name Role Phone Caitlyn Bowie MD Primary Care Provider +1- [phone] Encounter Details Date Type Department Care Team (Late st Contact Info) Description 04/26/2021 Scanned Document INTERFACE DEFAULT [address] [place] [address] System, Provider Not In Social History Tobacco [...] [facility] 240 [facility] Building [address] [place], [place] [phone] Ronald Mills MD [address] [place] [address] [address] [place] [address] documented as of this encounter [...] as of this encounter Care Teams Customer Sales Representative Relationship Specialty Start Date End Date Caitlyn Bowie MD [address] [address] PCP - General Internal Medicine 05/06/21 documented as of this encounter
--- OUTSIDE RECORDS SUMMARY | 2024-11-03 14:37 | XMS_ITS | Encounter Summary ---
Author Organization [facility] Address [address] [place] [address] Care Team Providers Care Strategic Partnership Representative Name Role Phone Caitlyn Bowie MD Primary Care Provider +1- [phone] Encounter Details Date Type Department Care Team (Late st Contact Info) Description 02/19/2015 Scanned Document [facility] Health Information Management [address] [place] [address] External, Provider Social History Tobacco Use Types [...] [facility] 240 [facility] Building [address] [place], [place] [phone] Ronald Mills MD 240 [facility] [address] [place] [address] documented as of this encounter Procedures Procedure Name Priority Date/Time Associated Diagnosis Comments LAB SCAN Routine 02/19/2015 documented in this encounter Results * Lab Scan (02/19/2015) Blood specimen (specimen) us Provider External LAB BLOOD ORDERABLES Final Res ult [facility] documented in this encounter Visit Diagnoses Not on filedocumented in this encounter Additional Health Concerns Infection Onset Date Last Indicated Resolved Time COVID-19 03/05/2022 03/05/2022 03/15/2022 7:18 PM EDT documented as of this encounter Care Teams Strategic Partnership Representative Relationship Specialty Start Date End Date Caitlyn Bowie MD 3400 [facility] 1 [place] [address] PCP - General Internal Medicine 05/06/21 Henry Kelly MD Pulmonary Department 175 [facility], [address] [place] [address] Physician Pulmonary Disease 09/06/17 06/22/20 documented as of this encounter
--- OUTSIDE RECORDS SUMMARY | 2024-11-03 14:37 | XMS_ITS | Encounter Summary ---
Author Organization [facility] and [facility] Address [address] [place] [address] Care Team Providers Care Metal Work Duct Installer Name Role Phone Caitlyn Bowie MD Primary Care Provider +1- [phone] Encounter Details Date Type Department Care Team (Late st Contact Info) Description 07/26/2018 Scanned Document [facility] Health Information Management [address] [place] [address] External, Provider Social History Tobacco Use Types [...] [facility] 240 [facility] Building [address] [place], [place] [address] Ronald Mills MD 240 [facility] [address]1 [place] [address] documented as of [...] as of this encounter Care Teams Metal Work Duct Installer Relationship Specialty Start Date End Date Caitlyn Bowie MD 3400 [facility] 1 [place] [address] PCP - General Internal Medicine 05/06/21 Henry Kelly MD Pulmonary Department 175 [facility], [address] [place] [address] Physician Pulmonary Disease 09/06/17 06/22/20 documented as of this encounter
--- OUTSIDE RECORDS SUMMARY | 2024-11-03 14:37 | XMS_ITS | Encounter Summary ---
Author Organization [facility] and [facility] Address [address] [place] [address] Care Team Providers Care Apartment Groundskeeper Name Role Phone Caitlyn Bowie MD Primary Care Provider +1- [phone] Encounter Details Date Type Department Care Team (Late st Contact Info) Description 07/30/2018 Scanned Document [facility] Health Information Management [address] [place] [address] External, Provider Social History Tobacco Use Types [...] [facility] 240 [facility] Building [address] [place], [place] [phone] Ronald Mills MD [address] [place] [address] [address] [place] [address] documented as of this encounter [...] documented as of this encounter Care Teams Apartment Groundskeeper Relationship Specialty Start Date End Date Caitlyn Bowie MD [facility] 1 [place] [address] PCP - General Internal Medicine 05/06/21 Henry Kelly MD Pulmonary Department 175 [facility], [address] [place] [address] Physician Pulmonary Disease 09/06/17 06/22/20 documented as of this encounter
--- OUTSIDE RECORDS SUMMARY | 2024-11-03 14:37 | XMS_ITS | Encounter Summary ---
Author Organization [facility] and [facility] Address 20 [place] [address] Care Team Providers Care Collection Agent Name Role Phone Caitlyn Bowie MD Primary Care Provider +1- [phone] Encounter Details Date Type Department Care Team (Late st Contact Info) Description 06/07/2021 Scanned Document [facility] at [address] [address] External, Provider Social History Tobacco Use Types [...] [facility] 240 [facility] Building [address] [place], [place] [address] Ronald Mills MD [address] [place] [address] [address] [place] [address] documented as of this encounter Visit Diagnoses Not on filedocumented in this encounter Additional Health Concerns Infection Onset Date Last Indicated Resolved Time COVID-19 03/05/2022 03/05/2022 03/15/2022 7:18 PM EDT Assessment Noted Time PHQ-9 Depression Total Score: 2 11/07/19 19 2:06 PM EDT documented as of this encounter Care Teams Collection Agent Relationship Specialty Start Date End Date Caitlyn Bowie MD [address] [address] PCP - General Internal Medicine 05/06/21 documented as of this encounter
--- OUTSIDE RECORDS SUMMARY | 2024-11-03 14:37 | XMS_ITS | Encounter Summary ---
Author Organization [facility] and [facility] Address [address] [place] [address] Care Team Providers Care Mason Tender Name Role Phone Caitlyn Bowie MD Primary Care Provider +1- [phone] Encounter Details Date Type Department Care Team (Late st Contact Info) Description 07/28/2018 Scanned Document [facility] Health Information Management [address] [place] [address] External, Provider Social History Tobacco Use Types [...] [facility] 240 [facility] Building [address] [place], [place] [address] Ronald Mills MD 240 [facility] [address] [place] [address] documented as of this [...] documented as of this encounter Care Teams Mason Tender Relationship Specialty Start Date End Date Caitlyn Bowie MD [facility]0 [facility] 1 [place] [address] PCP - General Internal Medicine 05/06/21 Henry Kelly MD Pulmonary Department 175 [facility], [address] [place] [address] Physician Pulmonary Disease 09/06/17 06/22/20 documented as of this encounter
--- OUTSIDE RECORDS SUMMARY | 2024-11-03 14:37 | XMS_ITS | Encounter Summary ---
Author Organization [facility] Address [address] [place] [address] Care Team Providers Care Child Welfare Counselor Name Role Phone Caitlyn Bowie MD Primary Care Provider +1- [phone] Encounter Details Date Type Department Care Team (Late st Contact Info) Description 06/26/2018 Scanned Document [facility] Health Information Management [address] [place] [address] External, Provider Social History Tobacco Use Types [...] [facility] 240 [facility] Building [address] [place], [place] [address] Ronald Mills MD 240 [facility] A1 [place] [address] documented as of this encounter Visit Diagnoses Not on filedocumented in this encounter Additional Health Concerns Infection Onset Date Last Indicated Resolved Time COVID-19 03/05/2022 03/05/2022 03/15/2022 7:18 PM EDT documented as of this encounter Care Teams Child Welfare Counselor Relationship Specialty Start Date End Date Caitlyn Bowie MD 3400 [facility] 1 [place] [address] PCP - General Internal Medicine 05/06/21 Henry Kelly MD Pulmonary Department 175 [facility], [address] [place] [address] Physician Pulmonary Disease 09/06/17 06/22/20 documented as of this encounter
--- OUTSIDE RECORDS SUMMARY | 2024-11-03 14:37 | XMS_ITS | Encounter Summary ---
Author Organization [facility] Address [address] [place] [address] Care Team Providers Care City Secretary Name Role Phone Caitlyn Bowie MD Primary Care Provider +1- [phone] Encounter Details Date Type Department Care Team (Late st Contact Info) Description 01/26/2018 Scanned Document [facility] Health Information Management [address] [place] [address] External, Provider Social History Tobacco Use Types [...] at [facility] 240 [facility] Building [address] [place] [address] Ronald Mills MD 240 [facility] A1 [place] [address] documented as of this encounter [...] as of this encounter Care Teams City Secretary Relationship Specialty Start Date End Date Caitlyn Bowie MD 3400 [facility] 1 [place] [address] PCP - General Internal Medicine 05/06/21 Henry Kelly MD Pulmonary Department 175 [facility], [address] [place] [address] Physician Pulmonary Disease 09/06/17 06/22/20 documented as of this encounter
--- OUTSIDE RECORDS SUMMARY | 2024-11-03 14:37 | XMS_ITS | Encounter Summary ---
Author Organization [facility] and [facility] Address [address] [place] [address] Care Team Providers Care Echo Technologist Name Role Phone Caitlyn Bowie MD Primary Care Provider +1- [phone] Encounter Details Date Type Department Care Team (Late st Contact Info) Description 10/15/2018 Scanned Document [facility] Health Information Management [address] [place] [address] External, Provider Social History Tobacco Use Types [...] [facility] 240 [facility] Building [address] [place], [place] [phone] Ronald Mills MD [address] [place] [address] [address]1 [place] [address] documented as of this encounter Visit Diagnoses Not on filedocumented in this encounter Additional Health Concerns Infection Onset Date Last Indicated Resolved Time COVID-19 03/05/2022 03/05/2022 03/15/2022 7:18 PM EDT documented as of this encounter Care Teams Echo Technologist Relationship Specialty Start Date End Date Caitlyn Bowie MD 3400 [facility] 1 [place] [address] PCP - General Internal Medicine 05/06/21 Henry Kelly MD Pulmonary Department 175 [facility], [address] [place] [address] Physician Pulmonary Disease 09/06/17 06/22/20 documented as of this encounter
--- OUTSIDE RECORDS SUMMARY | 2024-11-03 14:37 | XMS_ITS | Encounter Summary ---
Author Organization [facility] and [facility] Address [address] [place] [address] Care Team Providers Care Produce Field Merchandiser Name Role Phone Caitlyn Bowie MD Primary Care Provider +1- [phone] Encounter Details Date Type Department Care Team (Late st Contact Info) Description 02/02/2018 Scanned Document [facility] Health Information Management [address] [place] [address] External, Provider Social History Tobacco Use Types [...] [facility] 240 [facility] Building [address] [place], [place] [address] Ronald Mills MD [address] [place] [address] [address]1 [place] [address] documented as of this encounter [...] documented as of this encounter Care Teams Produce Field Merchandiser Relationship Specialty Start Date End Date Caitlyn Bowie MD 3400 [facility] 1 [place] [address] PCP - General Internal Medicine 05/06/21 Henry Kelly MD Pulmonary Department 175 [facility], [address] [place] [address] Physician Pulmonary Disease 09/06/17 06/22/20 documented as of this encounter
--- OUTSIDE RECORDS SUMMARY | 2024-11-03 14:37 | XMS_ITS | Encounter Summary ---
Author Organization [facility] and [facility] Address [address] [place] [address] Care Team Providers Care Fitness Instructor Name Role Phone Caitlyn Bowie MD Primary Care Provider +1- [phone] Encounter Details Date Type Department Care Team (Late Contact Info) Description 11/18/2021 Scanned Document [facility] Health Information Management [address] [place] [address] External, Provider Social History Tobacco Use Types [...] [facility] 240 [facility] Building [address] [place], [place] [address] Ronald Mills MD [address] [place] [address] [address]1 [place] [address] documented as of this encounter Visit Diagnoses Not on filedocumented in this encounter Additional Health Concerns Infection Onset Date Last Indicated Resolved Time COVID-19 03/05/2022 03/05/2022 03/15/2022 7:18 PM EDT Assessment Noted Time PHQ-9 Depression Total Score: 2 11/07/19 19 2:06 PM EDT documented as of this encounter Care Teams Fitness Instructor Relationship Specialty Start Date End Date Caitlyn Bowie MD [address] [address] PCP - General Internal Medicine 05/06/21 documented as of this encounter
--- OUTSIDE RECORDS SUMMARY | 2024-11-03 14:37 | XMS_ITS | Encounter Summary ---
Author Organization [facility] and [facility] Address [address] [place] [address] Care Team Providers Care Nuclear Control Room Operator Name Role Phone Caitlyn Bowie MD Primary Care Provider +1- [phone] Encounter Details Date Type Department Care Team (Late st Contact Info) Description 09/23/2021 Scanned Document INTERFACE DEFAULT [address] [place] [address] System, Provider Not In Social History Tobacco [...] [facility] 240 [facility] Building [address] [place], [place] [address] Ronald Mills MD [address] [place] [address] [address] [place] [address] documented as of this encounter [...] as of this encounter Care Teams Nuclear Control Room Operator Relationship Specialty Start Date End Date Caitlyn Bowie MD [address] [address] PCP - General Internal Medicine 05/06/21 documented as of this encounter
--- OUTSIDE RECORDS SUMMARY | 2024-11-03 14:38 | XMS_ITS | Encounter Summary ---
Author Organization [facility] and [facility] Address [address] [place] [address] Care Team Providers Care Board Saw Runner Name Role Phone Caitlyn Bowie MD Primary Care Provider +1- [phone] Encounter Details Date Type Department Care Team (Late st Contact Info) Description 05/17/2023 Scanned Document INTERFACE DEFAULT [address] [place] [address] System, Provider Not In Social History Tobacco [...] [facility] 240 [facility] Building [address] [place], [place] [address] Ronald Mills MD [address] [place] [address] [address]1 [place] [address] documented as of this encounter [...] End Date Caitlyn Bowie MD [address] [address] PCP - General Internal Medicine 05/06/21 documented as of this encounter
--- OUTSIDE RECORDS SUMMARY | 2024-11-03 14:38 | XMS_ITS | Encounter Summary ---
Author Organization [facility] and [facility] Address [address] [place] [address] Care Team Providers Care Counseling Case Manager Name Role Phone Caitlyn Bowie MD Primary Care Provider +1- [phone] Encounter Details Date Type Department Care Team (Late st Contact Info) Description 04/19/2022 Scanned Document INTERFACE DEFAULT [address] [place] [address] System, Provider Not In Social History Tobacco [...] [facility] 240 [facility] Building [address] [place], [place] [address] Ronald Mills MD [address] [place] [address] [address] [place] [address] documented as of this encounter [...] documented as of this encounter Care Teams Counseling Case Manager Relationship Specialty Start Date End Date Caitlyn Bowie MD [address] [address] PCP - General Internal Medicine 05/06/21 documented as of this encounter
--- OUTSIDE RECORDS SUMMARY | 2024-11-03 14:38 | XMS_ITS | Encounter Summary ---
Author Organization [facility] and [facility] Address [address] [place] [address] Care Team Providers Care Buyer Planner Name Role Phone Caitlyn Bowie MD Primary Care Provider +1- [phone] Encounter Details Date Type Department Care Team (Late st Contact Info) Description 01/02/2024 Scanned Document INTERFACE DEFAULT [address] [place] [address] System, Provider Not In Social History Tobacco [...] [facility] 240 [facility] Building [address] [place], [place] [address] Ronald Mills MD [address] [place] [address] [address] [place] [address] documented as of this encounter [...] documented as of this encounter Care Teams Buyer Planner Relationship Specialty Start Date End Date Caitlyn Bowie MD [address] [address] PCP - General Internal Medicine 05/06/21 documented as of this encounter
--- OUTSIDE RECORDS SUMMARY | 2024-11-03 14:38 | XMS_ITS | Encounter Summary ---
Author Organization [facility] Address [address] [place] [address] Care Team Providers Care Street Worker Name Role Phone Caitlyn Bowie MD Primary Care Provider +1- [phone] Encounter Details Date Type Department Care Team (Late st Contact Info) Description 04/19/2023 Scanned Document INTERFACE DEFAULT [address] [place] [address] System, Provider Not In Social History Tobacco [...] [facility] 240 [facility] Building [address] [place], [place] [address] Ronald Mills MD [address] [place] [address] [address] [place] [address] documented as of this encounter [...] documented as of this encounter Care Teams Street Worker Relationship Specialty Start Date End Date Caitlyn Bowie MD [address] [address] PCP - General Internal Medicine 05/06/21 documented as of this encounter
--- OUTSIDE RECORDS SUMMARY | 2024-11-03 14:38 | XMS_ITS | Encounter Summary ---
Author Organization [facility] and [facility] Address [address] [place] [address] Care Team Providers Care Casino Porter Name Role Phone Caitlyn Bowie MD Primary Care Provider +1- [phone] Encounter Details Date Type Department Care Team (Late st Contact Info) Description 07/07/2021 Scanned Document INTERFACE DEFAULT [address] [place] [address] System, Provider Not In Social History Tobacco [...] [facility] 240 [facility] Building [address] [place] [address] Ronald Mills MD [address] [place] [address] [address] [place] [address] documented as of this encounter Visit Diagnoses Not on filedocumented in this encounter Additional Health Concerns Infection Onset Date Last Indicated Resolved Time COVID-19 03/05/2022 03/05/2022 03/15/2022 7:18 PM EDT Assessment Noted Time PHQ-9 Depression Total Score: 2 11/07/19 19 2:06 PM EDT documented as of this encounter Care Teams Casino Porter Relationship Specialty Start Date End Date Caitlyn Bowie MD [address] [address] PCP - General Internal Medicine 05/06/21 documented as of this encounter
--- OUTSIDE RECORDS SUMMARY | 2024-11-03 14:38 | XMS_ITS | Encounter Summary ---
Author Organization [facility] Address [address] [place] [address] Care Team Providers Care Developmental Writing Instructor Name Role Phone Caitlyn Bowie MD Primary Care Provider +1- [phone] Encounter Details Date Type Department Care Team (Late st Contact Info) Description 09/02/2021 Scanned Document INTERFACE DEFAULT [address] [place] [address] System, Provider Not In Social History Tobacco [...] Telemedicine Cancer Center at [facility] 240 [facility] [address] [place], [place] [phone] Ronald Mills MD [address] [place] [address] [address] [place] [address] documented as of this encounter [...] as of this encounter Care Teams Developmental Writing Instructor Relationship Specialty Start Date End Date Caitlyn Bowie MD [address] [address] PCP - General Internal Medicine 05/06/21 documented as of this encounter
--- OUTSIDE RECORDS SUMMARY | 2024-11-03 14:38 | XMS_ITS | Encounter Summary ---
Author Organization [facility] and [facility] Address [address] [place] [address] Care Team Providers Care Manager Supplier Name Role Phone Caitlyn Bowie MD Primary Care Provider +1- [phone] Encounter Details Date Type Department Care Team (Late st Contact Info) Description 04/28/2022 Scanned Document INTERFACE DEFAULT [address] [place] [address] System, Provider Not In Social History Tobacco [...] Cancer Center at [facility] 240 [facility] Building [address] [place], [place] [phone] Ronald Mills MD [address] [place] [address] [address] [place] [address] documented as of this encounter [...] as of this encounter Care Teams Manager Supplier Relationship Specialty Start Date End Date Caitlyn Bowie MD [facility] [address] [address] PCP - General Internal Medicine 05/06/21 documented as of this encounter
--- OUTSIDE RECORDS SUMMARY | 2024-11-03 14:38 | XMS_ITS | Encounter Summary ---
Author Organization [facility] Address [address] [place] [address] Care Team Providers Care Sonogram Technician Name Role Phone Caitlyn Bowie MD Primary Care Provider +1- [phone] Encounter Details Date Type Department Care Team (Late st Contact Info) Description 09/01/2023 Scanned Document INTERFACE DEFAULT [address] [place] [address] System, Provider Not In Social History Tobacco [...] Cancer Center at [facility] 240 [facility] Building [address] [place] [address] Ronald Mills MD [address] [place] [address] [address] [place] [address] documented as of this encounter Visit Diagnoses Not on filedocumented in this encounter Additional Health Concerns Assessment Noted Time PHQ-9 Depression Total Score: 2 11/07/19 19 2:06 PM EDT documented as of this encounter Care Teams Sonogram Technician Relationship Specialty Start Date End Date Caitlyn Bowie MD [address] [address] PCP - General Internal Medicine 05/06/21 documented as of this encounter
--- OUTSIDE RECORDS SUMMARY | 2024-11-03 14:38 | XMS_ITS | Encounter Summary ---
Author Organization [facility] and [facility] Address [address] [place] [address] Care Team Providers Care Assembly Detailer Name Role Phone Caitlyn Bowie MD Primary Care Provider +1- [phone] Encounter Details Date Type Department Care Team (Late st Contact Info) Description 04/16/2022 Scanned Document INTERFACE DEFAULT [address] [place] [address] System, Provider Not In Social History Tobacco [...] Cancer Center at [facility] 240 [facility] Building [address] [place], [place] [phone] Ronald Mills MD [address] [place] [address] [address] [place] [address] documented as of this encounter [...] as of this encounter Care Teams Assembly Detailer Relationship Specialty Start Date End Date Caitlyn Bowie MD [address] [address] PCP - General Internal Medicine 05/06/21 documented as of this encounter
--- OUTSIDE RECORDS SUMMARY | 2024-11-03 14:38 | XMS_ITS | Encounter Summary ---
Author Organization [facility] Address [address] [place] [address] Care Team Providers Care Driller And Reamer Name Role Phone Caitlyn Bowie MD Primary Care Provider +1- [phone] Encounter Details Date Type Department Care Team (Late st Contact Info) Description 06/20/2022 Scanned Document INTERFACE DEFAULT [address] [place] [address] System, Provider Not In Social History Tobacco [...] [facility] at [facility] 240 [facility] Building [address] [place], [place] [address] Ronald Mills MD [address] [place] [address] [address] [place] [address] documented as of this encounter [...] Date End Date Caitlyn Bowie MD [facility] [address] [address] PCP - General Internal Medicine 05/06/21 documented as of this encounter
--- OUTSIDE RECORDS SUMMARY | 2024-11-03 14:38 | XMS_ITS | Encounter Summary ---
Author Organization [facility] and [facility] Address [address] [place] [address] Care Team Providers Care Accordion Tuner Name Role Phone Caitlyn Bowie MD Primary Care Provider +1- [phone] Encounter Details Date Type Department Care Team (Late st Contact Info) Description 09/28/2015 Scanned Document [facility] Health Information Management [address] [place] [address] External, Provider Social History Tobacco Use Types [...] Center at [facility] 240 [facility] Building [address] [place], [place] [id number] Ronald Mills MD [address] [facility] [address] [place] [address] documented as of this encounter Procedures Procedure Name Priority Date/Time Associated Diagnosis Comments LAB SCAN Routine 09/09/2015 documented in this encounter Results * Lab Scan (09/09/2015) Blood specimen (specimen) us Provider External LAB BLOOD ORDERABLES Final Res ult [facility] documented in this encounter Visit Diagnoses Not on filedocumented in this encounter Additional Health Concerns Infection Onset Date Last Indicated Resolved Time COVID-19 03/05/2022 03/05/2022 03/15/2022 7:18 PM EDT documented as of this encounter Care Teams Accordion Tuner Relationship Specialty Start Date End Date Caitlyn Bowie MD 3400 [facility] 1 [place] [address] PCP - General Internal Medicine 05/06/21 Henry Kelly MD Pulmonary Department 175 [facility], [address] [place] [address] Physician Pulmonary Disease 09/06/17 06/22/20 documented as of this encounter
--- OUTSIDE RECORDS SUMMARY | 2024-11-03 14:38 | XMS_ITS | Encounter Summary ---
Author Organization [facility] Address [address] [place] [address] Care Team Providers Care Chronic Disease Epidemiologist Name Role Phone Pcp, No Primary Care Provider Brennan Mario MD Primary Care Provider [phone] Caitlyn Bowie MD Primary Care Provider +1- [phone] Encounter Details Date Type Department Care Team (Late st Contact Info) Description 01/04/2022 Scanned Document [facility] Neurology Ophthalmology [address] [address] Yary Whitten DO [address] [place] [address] Social History Tobacco Use Types Packs/Day [...] on filedocumented in this encounter Care Teams Chronic Disease Epidemiologist Relationship Specialty Start Date End Date Pcp, No PCP - General General Medicine 10/04/21 07/18/22 Brennan Burnett MD [address] [place] [address] PCP - General 07/19/22 03/19/23 Caitlyn Bowie MD [address] [place] [address] PCP - General Internal Medicine 03/20/23 documented as of this encounter
--- OUTSIDE RECORDS SUMMARY | 2024-11-03 14:38 | XMS_ITS | Encounter Summary ---
Author Organization [facility] Address [address] [place] [address] Care Team Providers Care Mattress Packer Name Role Phone Caitlyn Bowie MD Primary Care Provider +1- [phone] Encounter Details Date Type Department Care Team (Late st Contact Info) Description 05/16/2023 Scanned Document INTERFACE DEFAULT [address] [place] [address] System, Provider Not In Social History Tobacco [...] 4:00 PM EDT Telemedicine Cancer Center at [facility] 240 [facility] Building [address] [place], [place] [address] Ronald Mills MD [address] [place] [address] [address] [place] [address] documented as of this encounter [...] documented as of this encounter Care Teams Mattress Packer Relationship Specialty Start Date End Date Caitlyn Bowie MD [address] [address] PCP - General Internal Medicine 05/06/21 documented as of this encounter
--- OUTSIDE RECORDS SUMMARY | 2024-11-03 14:38 | XMS_ITS | Encounter Summary ---
Author Organization [facility] and [facility] Address [address] [place] [address] Care Team Providers Care Hide Curer Name Role Phone Caitlyn Bowie MD Primary Care Provider +1- [phone] Encounter Details Date Type Department Care Team (Late st Contact Info) Description 05/10/2022 Scanned Document Cardiovascular Medicine at [address] [place] [phone] Norma Renee MD [address] [place] [phone] Social History Tobacco Use Types Packs/Day Years [...] 4:00 PM EDT Telemedicine Cancer Center at [address] [place] [address] Ronald Mills MD [address] [place] [address] [address] [place] [address] documented as of this encounter Visit Diagnoses Not on filedocumented in this encounter Additional Health Concerns Assessment Noted Time PHQ-9 Depression Total Score: 2 11/07/19 19 2:06 PM EDT documented as of this encounter Care Teams Hide Curer Relationship Specialty Start Date End Date Caitlyn Bowie MD [address] [address] PCP - General Internal Medicine 05/06/21 documented as of this encounter
--- OUTSIDE RECORDS SUMMARY | 2024-11-03 14:38 | XMS_ITS | Encounter Summary ---
Author Organization [facility] and [facility] Address [address] [place] [address] Care Team Providers Care Residential Door Unit Installer Name Role Phone Caitlyn Bowie MD Primary Care Provider +1- [phone] Encounter Details Date Type Department Care Team (Late st Contact Info) Description 07/28/2022 Scanned Document Onco-Oncology Program at [address] [place] [address] Norma Reene MD [address] [place] [address] 2 [place] [address] Social History Tobacco Use Types [...] 4:00 PM EDT Telemedicine Cancer Center at [address] [place], [place] [address] Ronald Mills MD 240 [facility] A1 [place] [address] documented as of this encounter Visit Diagnoses Not on filedocumented in this encounter Additional Health Concerns Assessment Noted Time PHQ-9 Depression Total Score: 2 11/07/19 19 2:06 PM EDT documented as of this encounter Care Teams Residential Door Unit Installer Relationship Specialty Start Date End Date Caitlyn Bowie MD [address] [address] PCP - General Internal Medicine 05/06/21 documented as of this encounter
--- OUTSIDE RECORDS SUMMARY | 2024-11-03 14:38 | XMS_ITS | Encounter Summary ---
Author Organization [facility] and [facility] Address [address] [place] [address] Care Team Providers Care Drywall Foreman Name Role Phone Caitlyn Bowie MD Primary Care Provider +1- [phone] Encounter Details Date Type Department Care Team (Late st Contact Info) Description 06/27/2022 Scanned Document INTERFACE DEFAULT [address] [place] [address] System, Provider Not In Social History Tobacco [...] 4:00 PM EDT Telemedicine Cancer Center at [facility] 240 [facility] Building [address] [place], [place] [address] Ronald Mills MD [address] [place] [address] [address] [place] [address] documented as of this encounter [...] as of this encounter Care Teams Drywall Foreman Relationship Specialty Start Date End Date Caitlyn Bowie MD [facility] [address] [address] PCP - General Internal Medicine 05/06/21 documented as of this encounter
--- OUTSIDE RECORDS SUMMARY | 2024-11-03 14:38 | XMS_ITS | Encounter Summary ---
Author Organization [facility] and [facility] Address [address] [place] [address] Care Team Providers Care Unit Aid Name Role Phone Caitlyn Bowie MD Primary Care Provider +1- [phone] Encounter Details Date Type Department Care Team (Late st Contact Info) Description 09/09/2015 Scanned Document [facility] Health Information Management [address] [place] [address] External, Provider Social History Tobacco Use Types [...] Center at [facility] 240 [facility] Building [address] [place], [place] [phone] Ronald Mills MD 240 [facility] [address] [place] [address] documented as of this encounter Procedures Procedure Name Priority Date/Time Associated Diagnosis Comments LAB SCAN Routine 09/09/2015 documented in this encounter Results * Lab Scan (09/09/2015) Blood specimen (specimen) us Provider External LAB BLOOD ORDERABLES Final Res ult [facility] documented in this encounter Visit Diagnoses Not on filedocumented in this encounter Additional Health Concerns Infection Onset Date Last Indicated Resolved Time COVID-19 03/05/2022 03/05/2022 03/15/2022 7:18 PM EDT documented as of this encounter Care Teams Unit Aid Relationship Specialty Start Date End Date Caitlyn Bowie MD 3400 [facility] 1 [place] [address] PCP - General Internal Medicine 05/06/21 Henry Kelly MD Pulmonary Department 175 [facility], [address] [place] [address] Physician Pulmonary Disease 09/06/17 06/22/20 documented as of this encounter
--- OUTSIDE RECORDS SUMMARY | 2024-11-03 14:38 | XMS_ITS | Encounter Summary ---
Author Organization [facility] [place] [facility] Address 20 [place] [address] Care Team Providers Care Single Stroke Preformer Name Role Phone Caitlyn Bowie MD Primary Care Provider +1- [phone] Encounter Details Date Type Department Care Team (Late st Contact Info) Description 12/31/2015 Scanned Document Electrophysiology & Cardiac Arrhythmia Program [address] [place] [address] External, Provider Social History Tobacco Use Types [...] Cancer Center at [facility] 240 [facility] Building [address] [place], [place] [phone] Ronald Mills MD [address] [place] [address] [address]1 [place] [address] documented as of this encounter Procedures Procedure Name Priority Date/Time Associated Diagnosis Comments LAB SCAN Routine 12/31/2015 documented in this encounter Results * Lab Scan (12/31/2015) Blood specimen (specimen) us Provider External LAB BLOOD ORDERABLES Final Res ult Performing Organization Address City/State/[facility] Co de Phone Number [facility] documented in this encounter Visit Diagnoses Not on filedocumented in this encounter Additional Health Concerns Infection Onset Date Last Indicated Resolved Time COVID-19 03/05/2022 03/05/2022 03/15/2022 7:18 PM EDT documented as of this encounter Care Teams Single Stroke Preformer Relationship Specialty Start Date End Date Caitlyn Bowie MD 3400 [facility] 1 [place] [address] PCP - General Internal Medicine 05/06/21 Henry Kelly MD Pulmonary Department 175 [facility] [place] [address] Physician Pulmonary Disease 09/06/17 06/22/20 documented as of this encounter
--- OUTSIDE RECORDS SUMMARY | 2024-11-03 14:38 | XMS_ITS | Encounter Summary ---
Author Organization [facility] Address [address] [place] [address] Care Team Providers Care Executive Housekeeper Name Role Phone Caitlyn Bowie MD Primary Care Provider +1- [phone] Encounter Details Date Type Department Care Team (Late st Contact Info) Description 09/09/2021 Scanned Document INTERFACE DEFAULT [address] [place] [address] System, Provider Not In Social History Tobacco [...] Center at [facility] 240 [facility] Building [address] [place] [address] Ronald Mills MD [address] [place] [address] [address]1 [place] [address] documented as of this encounter Visit Diagnoses Not on filedocumented in this encounter Additional Health Concerns Infection Onset Date Last Indicated Resolved Time COVID-19 03/05/2022 03/05/2022 03/15/2022 7:18 PM EDT Assessment Noted Time PHQ-9 Depression Total Score: 2 11/07/19 19 2:06 PM EDT documented as of this encounter Care Teams Executive Housekeeper Relationship Specialty Start Date End Date Caitlyn Bowie MD [address] [address] PCP - General Internal Medicine 05/06/21 documented as of this encounter
--- OUTSIDE RECORDS SUMMARY | 2024-11-03 14:38 | XMS_ITS ---
Author Organization [facility] Address 46 [facility] [address] [place] [address] Care Team Providers Care Charge Master Specialist Name Role Phone EVELIN RAMSAY Primary Care Provider Yenny Hou Unavailable [phone] Allergies Allergen (clinical drug ingredient) Drug/Non Drug [...] 1/2 tab prn during the day [facility] 06/10/2014 Active Advair HFA 230-21MCG/ACT 2 Inhalation tw ice daily for -3 06/10/2014 Active EpiPen Active Meclizine HCl 25 MG 1 tablet as needed Orally [facility] 06/10/2014 Active Rosuvastatin Calcium 05/03/2024 Active predniSONE 2.5 MG Oral for 30 Active Singulair 10 MG 1 tablet Orally Once a day Active Metoprolol Succinate ER 50 MG 1 tablet Orally Once a day Active Synthroid 25MCG 1 ORAL daily for -3 [facility] 06/10/2014 Active Albuterol Sulfate (2.5 MG/3ML)0.083% [...] Encounters Encounter Location Date Provider Diagnosis Total [address] [place] [address] 07/09/2024 Yenny Lovettva Urgency of urination R39.15 [...] Notes * TONIE WATSONOB:1945 (79 yo F)Acc No.[id number]:07/09/2024 PROGRESS NOTES Patient:?SHIRLEY CINDA Appointment Provider:?Yenny doan M.D. :1945???Age:79 Y???Sex:Female D ate:07/09/2024 Address:[address] [place] [address], [facility] Pcp:EVELIN RAMSAY Subjective: * Chief Complaints: * [...] ODORED DISCHARGE.?no?skin complaints.? * Medical History:? 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 * Examination: ???BARN AND PROPERTY MANAGER exam: ?EXTERNAL GENITALIA:?Normal female. No lesions, [...] Elizalde M.D. Date:?07/09/2024 Generated for Arely paige/Sebastian/Zacheryitting on:?11/03/2024 02:37 PM EDT History and Physical Notes * [...] Category Sub-Category Detail Notes Category Not es BARN AND PROPERTY MANAGER exam CERVIX: surgically absent VAGINA: atrophic changes, er ythematous with yellow white discharge, pH>4.5, +whiff test EXTERNAL GENITALIA: Normal female. No le sions, erythema or discharge UTERUS: absent ADNEXA: surgically absent
--- OUTSIDE RECORDS SUMMARY | 2024-11-03 14:38 | XMS_ITS | Encounter Summary ---
Author Organization [facility] Address [address] [place] [address] Care Team Providers Care Horse Breeder Name Role Phone Caitlyn Bowie MD Primary Care Provider +1- [phone] Encounter Details Date Type Department Care Team (Late st Contact Info) Description 05/04/2022 Scanned Document INTERFACE DEFAULT [address] [place] [address] System, Provider Not In Social History Tobacco [...] [facility] 240 [facility] Building [address] [place] [address] Ronald Mills MD [address] [place] [address] [address]1 [place] [address] documented as of this encounter Visit Diagnoses Not on filedocumented in this encounter Additional Health Concerns Assessment Noted Time PHQ-9 Depression Total Score: 2 11/07/19 19 2:06 PM EDT documented as of this encounter Care Teams Horse Breeder Relationship Specialty Start Date End Date Caitlyn Bowie MD [address] [address] PCP - General Internal Medicine 05/06/21 documented as of this encounter
--- OUTSIDE RECORDS SUMMARY | 2024-11-03 14:38 | XMS_ITS | Encounter Summary ---
Author Organization [facility] and [facility] Address [address] [place] [address] Care Team Providers Care Vp Of Technology Name Role Phone Caitlyn Bowie MD Primary Care Provider +1- [phone] Encounter Details Date Type Department Care Team (Late st Contact Info) Description 04/20/2023 Scanned Document INTERFACE DEFAULT [address] [place] [address] System, Provider Not In Social History Tobacco [...] [facility] 240 [facility] Building [address] [place], [place] [phone] Ronald Mills MD [address] [place] [address] [address] [place] [address] documented as of this encounter [...] as of this encounter Care Teams Vp Of Technology Relationship Specialty Start Date End Date Caitlyn Bowie MD [address] [address] PCP - General Internal Medicine 05/06/21 documented as of this encounter
--- OUTSIDE RECORDS SUMMARY | 2024-11-03 14:38 | XMS_ITS | Encounter Summary ---
Author Organization [facility] and [facility] Address [address] [place] [address] Care Team Providers Care Hand Box Coverer Name Role Phone Caitlyn Bowie MD Primary Care Provider +1- [phone] Encounter Details Date Type Department Care Team (Late st Contact Info) Description 09/10/2021 Scanned Document Cardiovascular Medicine at [address] [place] [phone] Norma Renee MD [address] [place] [phone] Social History Tobacco Use Types Packs/Day Years [...] 4:00 PM EDT Telemedicine Cancer Center at [address] [place] [address] Ronald Mills MD [address] [place] [address] [address]1 [place] [address] documented as of this encounter Visit Diagnoses Not on filedocumented in this encounter Additional Health Concerns Infection Onset Date Last Indicated Resolved Time COVID-19 03/05/2022 03/05/2022 03/15/2022 7:18 PM EDT Assessment Noted Time PHQ-9 Depression Total Score: 2 11/07/19 19 2:06 PM EDT documented as of this encounter Care Teams Hand Box Coverer Relationship Specialty Start Date End Date Caitlyn Bowie MD [address] [address] PCP - General Internal Medicine 05/06/21 documented as of this encounter
--- OUTSIDE RECORDS SUMMARY | 2024-11-03 14:38 | XMS_ITS | Encounter Summary ---
Author Organization [facility] and [facility] Address [address] [place] [address] Care Team Providers Care Inlayer Name Role Phone Caitlyn Bowie MD Primary Care Provider +1- [phone] Encounter Details Date Type Department Care Team (Late st Contact Info) Description 10/24/2022 Scanned Document INTERFACE DEFAULT [address] [place] [address] System, Provider Not In Social History Tobacco [...] [facility] 240 [facility] Building [address] [place], [place] [address] Ronald Mills MD [address] [place] [address] [address] [place] [address] documented as of this encounter [...] documented as of this encounter Care Teams Inlayer Relationship Specialty Start Date End Date Caitlyn Bowie MD [facility] [address] [address] PCP - General Internal Medicine 05/06/21 documented as of this encounter
--- OUTSIDE RECORDS SUMMARY | 2024-11-03 14:38 | XMS_ITS | Encounter Summary ---
Author Organization [facility] and [facility] Address [address] [place] [address] Care Team Providers Care Electrician Manager Name Role Phone Caitlyn Bowie MD Primary Care Provider +1- [phone] Encounter Details Date Type Department Care Team (Late st Contact Info) Description 12/04/2018 Scanned Document [facility] Health Information Management [address] [place] [address] External, Provider Social History Tobacco Use Types [...] [facility] 240 [facility] Building [address] [place], [place] [id number] Ronald Mills MD [address] [place] [address] [address] [place] [address] documented as of this encounter Visit Diagnoses Not on filedocumented in this encounter Additional Health Concerns Infection Onset Date Last Indicated Resolved Time COVID-19 03/05/2022 03/05/2022 03/15/2022 7:18 PM EDT Assessment Noted Time PHQ-9 Depression Total Score: 2 11/07/19 19 2:06 PM EDT documented as of this encounter Care Teams Electrician Manager Relationship Specialty Start Date End Date Caitlyn Bowie MD 3400 [facility] [address] [place] [address] PCP - General Internal Medicine 05/06/21 Henry Kelly MD Pulmonary Department 175 [facility], [address] [place] [address] Physician Pulmonary Disease 09/06/17 06/22/20 documented as of this encounter
--- OUTSIDE RECORDS SUMMARY | 2024-11-03 14:38 | XMS_ITS | Encounter Summary ---
Author Organization [facility] and [facility] Address [address] [place] [address] Care Team Providers Care Treatment Plant Operator Name Role Phone Caitlyn Bowie MD Primary Care Provider +1- [phone] Encounter Details Date Type Department Care Team (Late st Contact Info) Description 04/22/2022 Scanned Document INTERFACE DEFAULT [address] [place] [address] System, Provider Not In Social History Tobacco [...] [facility] 240 [facility] Building [address] [place], [place] [address] Ronald Mills MD [address] [place] [address] [address] [place] [address] documented as of this encounter [...] documented as of this encounter Care Teams Treatment Plant Operator Relationship Specialty Start Date End Date Caitlyn Bowie MD [address] [address] PCP - General Internal Medicine 05/06/21 documented as of this encounter
--- OUTSIDE RECORDS SUMMARY | 2024-11-03 14:38 | XMS_ITS | Encounter Summary ---
Author Organization [facility] Address [address] [place] [address] Care Team Providers Care Fire Extinguisher Sprinkler Inspector Name Role Phone Caitlyn Bowie MD Primary Care Provider +1- [phone] Encounter Details Date Type Department Care Team (Late st Contact Info) Description 07/06/2021 Scanned Document INTERFACE DEFAULT [address] [place] [address] System, Provider Not In Social History Tobacco [...] [facility] 240 [facility] Building [address] [place] [address] Ronald Mills MD [address] [place] [address] [address] [place] [address] documented as of this encounter Visit Diagnoses Not on filedocumented in this encounter Additional Health Concerns Infection Onset Date Last Indicated Resolved Time COVID-19 03/05/2022 03/05/2022 03/15/2022 7:18 PM EDT Assessment Noted Time PHQ-9 Depression Total Score: 2 11/07/19 19 2:06 PM EDT documented as of this encounter Care Teams Fire Extinguisher Sprinkler Inspector Relationship Specialty Start Date End Date Caitlyn Bowie MD [address] [address] PCP - General Internal Medicine 05/06/21 documented as of this encounter
--- OUTSIDE RECORDS SUMMARY | 2024-11-03 14:38 | XMS_ITS | Encounter Summary ---
Author Organization [facility] and [facility] Address [address] [place] [address] Care Team Providers Care Welder Fitter Helper Name Role Phone Caitlyn Bowie MD Primary Care Provider +1- [phone] Encounter Details Date Type Department Care Team (Late Contact Info) Description 01/31/2023 Abstract [facility] 35 [facility] [place] [address] Shilpi Romero, RN Social History Tobacco Use [...] at [facility] 240 [facility] [address] [place], [place] [address] Ronald Mills MD 240 [facility] [address] [place] [address] documented as of this encounter Visit Diagnoses Not on filedocumented in this encounter Additional Health Concerns Assessment Noted Time PHQ-9 Depression Total Score: 2 11/07/19 19 2:06 PM EDT documented as of this encounter Care Teams Welder Fitter Helper Relationship Specialty Start Date End Date Caitlyn Bowie MD [address] [address] PCP - General Internal Medicine 05/06/21 documented as of this encounter
--- OUTSIDE RECORDS SUMMARY | 2024-11-03 14:38 | XMS_ITS | Encounter Summary ---
Author Organization [facility] and [facility] Address [address] [place] [address] Care Team Providers Care Structural Steel Engineer Name Role Phone Caitlyn Bowie MD Primary Care Provider +1- [phone] Reason for Visit * Reason Comments Advice Only mass Encounter Details Date Type Department Care Team (Late st Contact Info) Description 09/06/2021 Telephone [facility] at [address] [phone] Ronald Mills MD [address] [place] [address] Advice Only (mass) Social History Tobacco [...] [facility] 240 [facility] Building [address] [place], [place] [address] Ronald Mills MD 240 [facility] [address] [place] [address] documented as of this encounter Visit Diagnoses Not on filedocumented in this encounter Additional Health Concerns Infection Onset Date Last Indicated Resolved Time COVID-19 03/05/2022 03/05/2022 03/15/2022 7:18 PM EDT Assessment Noted Time PHQ-9 Depression Total Score: 2 11/07/19 19 2:06 PM EDT documented as of this encounter Care Teams Structural Steel Engineer Relationship Specialty Start Date End Date Caitlyn Bowie MD [address] [address] PCP - General Internal Medicine 05/06/21 documented as of this encounter
--- OUTSIDE RECORDS SUMMARY | 2024-11-03 14:38 | XMS_ITS | Encounter Summary ---
Author Organization [facility] and [facility] Address [address] [place] [address] Care Team Providers Care Manager Real Estate Name Role Phone Caitlyn Bowie MD Primary Care Provider +1- [phone] Encounter Details Date Type Department Care Team (Late st Contact Info) Description 04/25/2022 Scanned Document INTERFACE DEFAULT [address] [place] [address] System, Provider Not In Social History Tobacco [...] [facility] 240 [facility] Building [address] [place] [address] Ronald Mills MD [address] [place] [address] [address] [place] [address] documented as of this encounter Visit Diagnoses Not on filedocumented in this encounter Additional Health Concerns Assessment Noted Time PHQ-9 Depression Total Score: 2 11/07/19 19 2:06 PM EDT documented as of this encounter Care Teams Manager Real Estate Relationship Specialty Start Date End Date Caitlyn Bowie MD [address] [address] PCP - General Internal Medicine 05/06/21 documented as of this encounter
--- OUTSIDE RECORDS SUMMARY | 2024-11-03 14:38 | XMS_ITS | Encounter Summary ---
Author Organization [facility] and [facility] Address [address] [place] [address] Care Team Providers Care Station Helper Name Role Phone Caitlyn Bowie MD Primary Care Provider +1- [phone] Encounter Details Date Type Department Care Team (Late st Contact Info) Description 09/09/2015 Scanned Document [facility] Health Information Management [address] [place] [address] External, Provider Social History Tobacco Use Types [...] [facility] 240 [facility] Building [address] [place], [place] [id number] Ronald Mills MD 240 [facility] [address] [place] [address] documented as of this encounter Procedures Procedure Name Priority Date/Time Associated Diagnosis Comments LAB SCAN Routine 09/09/2015 documented in this encounter Results * Lab Scan (09/09/2015) Blood specimen (specimen) us Provider External LAB BLOOD ORDERABLES Final Res ult Performing Organization Address City/State/[facility] Co de Phone Number [facility] documented in this encounter Visit Diagnoses Not on filedocumented in this encounter Additional Health Concerns Infection Onset Date Last Indicated Resolved Time COVID-19 03/05/2022 03/05/2022 03/15/2022 7:18 PM EDT documented as of this encounter Care Teams Station Helper Relationship Specialty Start Date End Date Caitlyn Bowie MD 3400 [facility] 1 [place] [address] PCP - General Internal Medicine 05/06/21 Henry Kelly MD Pulmonary Department 175 [facility], [address] [place] [address] Physician Pulmonary Disease 09/06/17 06/22/20 documented as of this encounter
--- OUTSIDE RECORDS SUMMARY | 2024-11-03 14:38 | XMS_ITS ---
Author Organization [facility] Address 46 [facility] [address] [place] [address] Care Team Providers Care Driver Engineer Name Role Phone EVELIN RAMSAY Primary Care Provider Yenny Hou Unavailable [phone] Allergies Allergen (clinical drug ingredient) Drug/Non Drug [...] bedtime, 1/2 tab prn during the day [facility] 06/10/2014 Active traZODone HCl 50MG 1 ORAL at bedtime fo r -3 [facility] 06/10/2014 Active Meclizine HCl 25 MG 1 tablet as needed Orally [facility] 06/10/2014 Active Advair HFA 230-21MCG/ACT [...] Synthroid 25MCG 1 ORAL daily for -3 [facility] 06/10/2014 Active Singulair 10 MG [...] 07/18/2024 Encounters Encounter Location Date Provider Diagnosis [address] [place] [address] 07/18/2024 Yenny Elizalde Encounter for screening mammogram [...] Notes * TONIE WATSONOB:1945 (79 yo F)Acc No.[id number]:07/18/2024 PROGRESS NOTES Patient:?CINDA WATSON Appointment Provider:?Yenny doan M.D. :1945???Age:79 Y???Sex:Female D ate:07/18/2024 Address:[address] [place] [address] Pcp:EVELIN RAMSAY Subjective: * Chief Complaints: * ???LT BREAST PAIN * HPI: ???New/Follow-up Patient Consult:? PAT C/O LEFT BREAST DISCOMFORT OF A FEW DAYS DURATION.? NO NIPPLE DISCHARGE, NO PALPABLE MASSES.? HER LAST MAMMOGRAM DONE IN AUG 2023 WAS NORMAL. * ROS:?general:?no?chest pain.?no?palpitations.?no?headache.?no?cough.?no?shortness of breath.?no?fever.?no?unexplained weight loss.?no?nausea/vomiting.?no?change in bowel movements.?no blood in stool.?no?genitourinary complaints.?no?skin complaints.? * Medical History:? * Signal Maintainer Helper History:?/ Para?2/2.?Sexual activity?not currently sexually active.?Last Pap [...] Elizalde M.D. Date:?07/18/2024 Generated for Arely paige/Sebastian/Brandonsmitting on:?11/03/2024 02:37 PM EDT History and Physical [...]
--- OUTSIDE RECORDS SUMMARY | 2024-11-03 14:38 | XMS_ITS | Encounter Summary ---
Author Organization [facility] and [facility] Address [address] [place] [address] Care Team Providers Care In Flight Refueling Manager Name Role Phone Caitlyn Bowie MD Primary Care Provider +1- [phone] Encounter Details Date Type Department Care Team (Late st Contact Info) Description 06/28/2022 Scanned Document INTERFACE DEFAULT [address] [place] [address] System, Provider Not In Social History Tobacco [...] [facility] 240 [facility] Building [address] [place], [place] [phone] Ronald Mills MD [address] [place] [address] [address] [place] [address] documented as of this encounter [...] as of this encounter Care Teams In Flight Refueling Manager Relationship Specialty Start Date End Date Caitlyn Bowie MD [address] [address] PCP - General Internal Medicine 05/06/21 documented as of this encounter
--- OUTSIDE RECORDS SUMMARY | 2024-11-03 14:38 | XMS_ITS | Encounter Summary ---
Author Organization [facility] and [facility] Address [address] [place] [address] Care Team Providers Care Box Car Bracer Name Role Phone Caitlyn Bowie MD Primary Care Provider +1- [phone] Encounter Details Date Type Department Care Team (Late st Contact Info) Description 10/23/2018 Scanned Document [facility] Health Information Management [address] [place] [address] External, Provider Social History Tobacco Use Types [...] [facility] 240 [facility] Building [address] [place], [place] [phone] Ronald Mills MD [address] [place] [address] [address]1 [place] [address] documented as of this encounter Visit Diagnoses Not on filedocumented in this encounter Additional Health Concerns Infection Onset Date Last Indicated Resolved Time COVID-19 03/05/2022 03/05/2022 03/15/2022 7:18 PM EDT documented as of this encounter Care Teams Box Car Bracer Relationship Specialty Start Date End Date Caitlyn Bowie MD 3400 [facility] 1 [place] [address] PCP - General Internal Medicine 05/06/21 Henry Kelly MD Pulmonary Department 175 [facility], [address] [place] [address] Physician Pulmonary Disease 09/06/17 06/22/20 documented as of this encounter
--- OUTSIDE RECORDS SUMMARY | 2024-11-03 14:38 | XMS_ITS | Encounter Summary ---
Author Organization [facility] and [facility] Address [address] [place] [address] Care Team Providers Care Dozer Operator Name Role Phone Caitlyn Bowie MD Primary Care Provider +1- [phone] Encounter Details Date Type Department Care Team (Late st Contact Info) Description 06/23/2022 Scanned Document INTERFACE DEFAULT [address] [place] [address] System, Provider Not In Social History Tobacco [...] at [facility] 240 [facility] Building [address] [place] [address] Ronald Mills MD [address] [place] [address] [address] [place] [address] documented as of this encounter Visit Diagnoses Not on filedocumented in this encounter Additional Health Concerns Assessment Noted Time PHQ-9 Depression Total Score: 2 11/07/19 19 2:06 PM EDT documented as of this encounter Care Teams Dozer Operator Relationship Specialty Start Date End Date Caitlyn Bowie MD [address] [address] PCP - General Internal Medicine 05/06/21 documented as of this encounter
--- OUTSIDE RECORDS SUMMARY | 2024-11-03 14:38 | XMS_ITS | Encounter Summary ---
Author Organization [facility] Address [address] [place] [address] Care Team Providers Care Property Management Accountant Name Role Phone Caitlyn Bowie MD Primary Care Provider +1- [phone] Encounter Details Date Type Department Care Team (Late st Contact Info) Description 06/21/2022 Scanned Document INTERFACE DEFAULT [address] [place] [address] System, Provider Not In Social History Tobacco [...] [facility] 240 [facility] Building [address] [place], [place] [id number] Ronald Mills MD [address] [place] [address] [address] [place] [address] documented as of this encounter [...] as of this encounter Care Teams Property Management Accountant Relationship Specialty Start Date End Date Caitlyn Bowie MD [address] [address] PCP - General Internal Medicine 05/06/21 documented as of this encounter
--- OUTSIDE RECORDS SUMMARY | 2024-11-03 14:38 | XMS_ITS | Encounter Summary ---
Author Organization [facility] and [facility] Address [address] [place] [address] Care Team Providers Care Recreation Adviser Name Role Phone Caitlyn Bowie MD Primary Care Provider +1- [phone] Encounter Details Date Type Department Care Team (Late st Contact Info) Description 06/24/2022 Scanned Document INTERFACE DEFAULT [address] [place] [address] System, Provider Not In Social History Tobacco [...] [facility] 240 [facility] Building [address] [place], [place] [phone] Ronald Mills MD [address] [place] [address] [address] [place] [address] documented as of this encounter [...] documented as of this encounter Care Teams Recreation Adviser Relationship Specialty Start Date End Date Caitlyn Bowie MD [address] [address] PCP - General Internal Medicine 05/06/21 documented as of this encounter
--- OUTSIDE RECORDS SUMMARY | 2024-11-03 14:38 | XMS_ITS | Encounter Summary ---
Author Organization [facility] and [facility] Address [address] [place] [address] Care Team Providers Care Cow Puncher Name Role Phone Caitlyn Bowie MD Primary Care Provider +1- [phone] Encounter Details Date Type Department Care Team (Late st Contact Info) Description 09/24/2015 Scanned Document [facility] at 40 [facility] 40 [facility] [address] [place] [address] Kevin Espinoza MD [address] [place] [address] Social History Tobacco Use Types Packs/Day [...] 4:00 PM EDT Telemedicine [facility] at [address] [place], [place] [phone] Ronald Mills MD [address] [place] [address] [address] [place] [address] documented as of this encounter Visit Diagnoses Not on filedocumented in this encounter Additional Health Concerns Infection Onset Date Last Indicated Resolved Time COVID-19 03/05/2022 03/05/2022 03/15/2022 7:18 PM EDT documented as of this encounter Care Teams Cow Puncher Relationship Specialty Start Date End Date Caitlyn Bowie MD 3400 [facility] 1 [place] [address] PCP - General Internal Medicine 05/06/21 Henry Kelly MD Pulmonary Department 175 [facility], [address] [place] [address] Physician Pulmonary Disease 09/06/17 06/22/20 documented as of this encounter
--- OUTSIDE RECORDS SUMMARY | 2024-11-03 14:38 | XMS_ITS | Encounter Summary ---
Author Organization [facility] Address [address] [place] [address] Care Team Providers Care Tester Rocket Engine Name Role Phone Caitlyn Bowie MD Primary Care Provider +1- [phone] Encounter Details Date Type Department Care Team (Late st Contact Info) Description 12/06/2018 Scanned Document [facility] Health Information Management [address] [place] [address] External, Provider Social History Tobacco Use Types [...] [facility] Building [address] [place], [place] [phone] Ronald Mills MD [address] [place] [address] [address] [place] [address] documented as of this encounter [...] as of this encounter Care Teams Tester Rocket Engine Relationship Specialty Start Date End Date Caitlyn Bowie MD 3400 [facility] 1 [place] [address] PCP - General Internal Medicine 05/06/21 Henry Kelly MD Pulmonary Department 175 [facility], [address] [place] [address] Physician Pulmonary Disease 09/06/17 06/22/20 documented as of this encounter
--- OUTSIDE RECORDS SUMMARY | 2024-11-03 14:38 | XMS_ITS | Encounter Summary ---
Author Organization [facility] Address [address] [place] [address] Care Team Providers Care Supervisor Prep Name Role Phone Caitlyn Bowie MD Primary Care Provider +1- [phone] Encounter Details Date Type Department Care Team (Late st Contact Info) Description 04/18/2022 Scanned Document INTERFACE DEFAULT [address] [place] [address] System, Provider Not In Social History Tobacco [...] [facility] 240 [facility] [address] [place] [address] Ronald Mills MD [address] [place] [address] [address] [place] [address] documented as of this encounter Visit Diagnoses Not on filedocumented in this encounter Additional Health Concerns Assessment Noted Time PHQ-9 Depression Total Score: 2 11/07/19 19 2:06 PM EDT documented as of this encounter Care Teams Supervisor Prep Relationship Specialty Start Date End Date Caitlyn Bowie MD [address] [address] PCP - General Internal Medicine 05/06/21 documented as of this encounter
--- OUTSIDE RECORDS SUMMARY | 2024-11-03 14:38 | XMS_ITS | Encounter Summary ---
Author Organization [facility] Address [address] [place] [address] Care Team Providers Care Acquisitions Librarian Name Role Phone Caitlyn Bowie MD Primary Care Provider +1- [phone] Encounter Details Date Type Department Care Team (Latest Contact Info) Description 12/25/2015 Transcribed Orders [facility] Draw Station [address] [facility] [place] [address] Osmel Briscoe MD Other abnormality of red [...] 4:00 PM EDT Telemedicine Cancer Center at [address] [place], [place] [phone] Ronald Mills MD [address] [place] [address] [address] [place] [address] documented as of this encounter Results * Free kappa lambda with ratio, serum ( GH Q YH) (12/25/2015 10:09 AM EDT) Ig [place] Free Light Chain 1.84 0.33 - 1.94 mg/dL [facility] Ig Lambda Free Light Chain 1.96 0.57 - 2.63 mg/dL [facility] [place]/Lambda FLC Ratio 0.94 0.26 - 1.65 [facility] Blood specimen (specimen) 12/25/2015 10:09 AM EDT Result [facility] Osmel Briscoe MD LAB BLOOD ORDERABLES Final R esult Performing Organization Address [facility] Co de Phone Number [facility] [address] [place] [address] * Immunofixation, serum ( L Q YH) (12/25/2015 10:09 AM EDT) [facility] Immunofixation Electrophoresis Gel See below See Interp. [facility] Comment: INTERPRETATION: Normal immunofixation electrophoresis. No evidence of a serum monoclonal component. SIGNED BY:Keyur KAYE MD ON 12/29/2015 14:56:04 INTERPRETATION REVIEW : I have reviewed these results and agree with this interpretation. Blood specimen (specimen) 12/25/2015 10:09 AM EDT Osmel Briscoe MD LAB BLOOD ORDERABLES Final R esult Performing Organization Address [facility] Co de Phone Number [facility] [address] [place] [phone] * (ABNORMAL) Protein electrophoresis, serum ( GH L YH) (12/25/2015 10:09 AM EDT) Albumin Electrophoresis 3.45(L) 3.50 - 4.70 g/dL [facility] Lykhg-9-Cxtniugl 0.16 0.10 - 0.30 g/dL [facility] Bfhhm-1-Mrucyims 0.81 0.60 - 1.00 g/dL [facility] Beta Globulin 0.86 0.70 - 1.20 g/dL [facility] Gamma Globulin 0.92 0.70 - 1.50 g/dL [facility] SPEP Interpretation See below See Interp. [facility] Comment: INTERPRETATION: No discrete abnormal [...] ORDERABLES Final R esult Performing Organization Address [facility] Co de Phone Number [facility] [address] [place] [address] * Reticulocytes (GH L Q YH) (12/25/2015 10:09 AM EDT) Reticulocyte Count 2.1 0.6 - 2.7 % [facility] Blood specimen (specimen) 12/25/2015 10:09 AM EDT Osmel Briscoe MD LAB BLOOD ORDERABLES Final R esult Performing Organization Address [facility] Co de Phone Number [facility] [address] [place] [address] * (ABNORMAL) Sedimentation rate (ESR) (12/25/2015 10:09 AM EDT) Sed Rate 27(H) 0 - 20 mm/hr [facility] Blood specimen (specimen) 12/25/2015 10:09 AM EDT us Osmel Briscoe MD LAB BLOOD ORDERABLES Final R esult Performing Organization Address [facility] Co de Phone Number [facility] [address] [place] [address] * Ferritin (12/25/2015 10:09 AM EDT) Ferritin 68 9 - 120 ng/mL [facility] Blood specimen (specimen) 12/25/2015 10:09 AM EDT Osmel Briscoe MD LAB BLOOD ORDERABLES Final R esult Performing Organization Address [facility] Co de Phone Number [facility] [address] [place] [address] * Iron and TIBC (12/25/2015 10:09 AM EDT) Iron 110 50 - 170 ug/dL [facility] TIBC 290 250 - 450 ug/dL [facility] Iron Saturation 38 15 - 50 [facility] Blood specimen (specimen) 12/25/2015 10:09 AM EDT Osmel Briscoe MD LAB BLOOD ORDERABLES Final R esult Performing Organization Address [facility] Co de Phone Number [facility] [address] [place] [address] * Vitamin D 25 hydroxy (BH L YH) (12/25/2015 10:09 AM EDT) Vit D, 25-Hydroxy 43 20 - 50 ng/mL [facility] Comment: A serum 25(OH) vitamin [...] ORDERABLES Final R esult Performing Organization Address City/[facility]/ZIP Co de Phone Number [facility] [address] [place] [address] * TSH (BH L YH) (12/25/2015 10:09 AM EDT) TSH cancelled 0.3 - 4.2 uU/mL [facility] TSH 1.62 0.3 - 4.2 uU/mL [facility] Comment:This test is a third generation TSH assay. Blood specimen (specimen) 12/25/2015 10:09 AM EDT Osmel Briscoe MD LAB BLOOD ORDERABLES Final R esult Performing Organization Address City/[facility] Co de Phone Number [facility] [address] [place] [address] * (ABNORMAL) CBC and differential (12/25/2015 10:09 AM EDT) Pathologist [facility] CBC with Differential See Below [facility] WBC 9.9 4.0 - 10.0 x 1000/uL [facility] RBC 4.0 3.8 - 5.2 M/uL [facility] Hemoglobin 13.4 12.0 - 16.0 g/dL [facility] Hematocrit 41.0 37.0 - 47.0 % [facility] MCV 101(H) 78 - 94 fL [facility] MCH 33.2(H) 27.0 - 33.0 pg [facility] MCHC 32.8(L) 33.0 - 37.0 g/dL [facility] RDW 12.5 10.8 - 14.5 % [facility] Platelets 265 150 - 350 x 1000/uL [facility] MPV 7.2 6.0 - 10.0 fL [facility] Neutrophils 82(H) 38 - 71 % [facility] Lymphocytes 7(L) 14 - 46 % [facility] Monocytes 10 2 - 15 % [facility] Eosinophils 1 0 - 5 % [facility] Basophils 0 0 - 2 % [facility] ANC (Abs Neutrophil Count) 8.1 1.0 - 9.0 x 1000/uL [facility] Absolute Lymphocyte Count 0.7 0.6 - 4.6 x 1000/uL [facility] Blood specimen (specimen) ARM NEC / Unknown 12/25/2015 10:09 AM EDT us Osmel Briscoe MD LAB BLOOD ORDERABLES Final R esult [facility] [address] [place] [address] documented in this encounter Visit Diagnoses Diagnosis [...] documented as of this encounter Care Teams Acquisitions Librarian Relationship Specialty Start Date End Date Caitlyn Bowie MD [address] [address] PCP - General Internal Medicine 05/06/21 Henry Kelly MD Pulmonary Department [address] [facility], [address] [place] [address] Physician Pulmonary Disease 09/06/17 06/22/20 documented as of this encounter
--- OUTSIDE RECORDS SUMMARY | 2024-11-03 14:38 | XMS_ITS | Encounter Summary ---
Author Organization [facility] Address [address] [place] [address] [address] [place] [address] Phone Care Team Providers Care Lpn Medical Assistant Name Role Phone Caitlyn Bowie MD Primary Care Provider +1- [phone] Encounter Details Date Type Department Care Team (Late st Contact Info) Description 08/30/2024 Abstract [facility] [address] [place] [address] [address] [place] [address] Adalgisa Whitney MD [address] [place] [address] [address] [place] [address] Social History Tobacco Use Types [...] PM EDT Telemedicine Cancer Center at [address] [place] [address] Ronald Mills MD [address] [facility] [address] [place] [address] documented as of this encounter Visit Diagnoses Not on filedocumented in this encounter Additional Health Concerns Assessment Noted Time PHQ-9 Depression Total Score: 2 11/07/19 19 2:06 PM EDT documented as of this encounter Care Teams Lpn Medical Assistant Relationship Specialty Start Date End Date Caitlyn Bowie MD [address] [address] PCP - General Internal Medicine 05/06/21 documented as of this encounter
--- OUTSIDE RECORDS SUMMARY | 2024-11-03 14:38 | XMS_ITS | Encounter Summary ---
Author Organization [facility] and [facility] Address [address] [place] [address] Care Team Providers Care Asw Specialist Name Role Phone Caitlyn Bowie MD Primary Care Provider +1- [phone] Encounter Details Date Type Department Care Team (Late st Contact Info) Description 04/13/2023 Scanned Document INTERFACE DEFAULT [address] [place] [phone] System, Provider Not In Social History Tobacco [...] [facility] [address] [facility] Building [address] [place] [address] Ronald Mills MD [address] [place] [address] [address] [place] [address] documented as of this encounter [...] documented as of this encounter Care Teams Asw Specialist Relationship Specialty Start Date End Date Caitlyn Bowie MD [address] [address] PCP - General Internal Medicine 05/06/21 documented as of this encounter
--- OUTSIDE RECORDS SUMMARY | 2024-11-03 14:38 | XMS_ITS | Encounter Summary ---
Author Organization [facility] Address [address] [place] [address] Care Team Providers Care Career Services Coordinator Name Role Phone Caitlyn Bowie MD Primary Care Provider +1- [phone] Encounter Details Date Type Department Care Team (Late st Contact Info) Description 12/23/2022 Scanned Document INTERFACE DEFAULT [address] [place] [address] System, Provider Not In Social History Tobacco [...] [facility] Center at [facility] 240 [facility] Building [address] [place] [address] Ronald Mills MD [address] [place] [address] [address] [place] [address] documented as of this encounter Visit Diagnoses Not on filedocumented in this encounter Additional Health Concerns Assessment Noted Time PHQ-9 Depression Total Score: 2 11/07/19 19 2:06 PM EDT documented as of this encounter Care Teams Career Services Coordinator Relationship Specialty Start Date End Date Caitlyn Bowie MD [address] [address] PCP - General Internal Medicine 05/06/21 documented as of this encounter
--- OUTSIDE RECORDS SUMMARY | 2024-11-03 14:38 | XMS_ITS | Encounter Summary ---
Author Organization [facility] Address [address] [place] [address] Care Team Providers Care Carbon Rod Inserter Name Role Phone Caitlyn Bowie MD Primary Care Provider +1- [phone] Encounter Details Date Type Department Care Team (Late st Contact Info) Description 08/23/2022 Abstract Cardiovascular Medicine at [address] [place] [address] Norma Renee MD [address] [place] [phone] Social History Tobacco Use Types Packs/Day Years [...] 4:00 PM EDT Telemedicine Cancer Center at [address] [place] [address] Ronald Mills MD [address] [place] [address] [address] [place] [address] documented as of this encounter Visit Diagnoses Not on filedocumented in this encounter Additional Health Concerns Assessment Noted Time PHQ-9 Depression Total Score: 2 11/07/19 19 2:06 PM EDT documented as of this encounter Care Teams Carbon Rod Inserter Relationship Specialty Start Date End Date Caitlyn Bowie MD [address] [address] PCP - General Internal Medicine 05/06/21 documented as of this encounter
--- OUTSIDE RECORDS SUMMARY | 2024-11-03 14:38 | XMS_ITS | Encounter Summary ---
Author Organization [facility] and [facility] Address [address] [place] [address] Care Team Providers Care Wine Steward/Stewardess Name Role Phone Caitlyn Bowie MD Primary Care Provider +1- [phone] Encounter Details Date Type Department Care Team (Late st Contact Info) Description 07/08/2022 Scanned Document Cardiovascular Medicine at [address] [place] [phone] Norma Renee MD [address] [place] [phone] Social History Tobacco Use Types Packs/Day Years [...] 4:00 PM EDT Telemedicine Cancer Center at [address] [place] [address] Ronald Mills MD [address] [place] [address] [address] [place] [address] documented as of this encounter Visit Diagnoses Not on filedocumented in this encounter Additional Health Concerns Assessment Noted Time PHQ-9 Depression Total Score: 2 11/07/19 19 2:06 PM EDT documented as of this encounter Care Teams Wine Steward/Stewardess Relationship Specialty Start Date End Date Caitlyn Bowie MD [address] [address] PCP - General Internal Medicine 05/06/21 documented as of this encounter
--- OUTSIDE RECORDS SUMMARY | 2024-11-03 14:38 | XMS_ITS | Encounter Summary ---
Author Organization [facility] and [facility] Address [address] [place] [address] Care Team Providers Care District Wire Chief Name Role Phone Caitlyn Bowie MD Primary Care Provider +1- [phone] Encounter Details Date Type Department Care Team (Late st Contact Info) Description 06/08/2022 Scanned Document INTERFACE DEFAULT [address] [place] [address] System, Provider Not In Social History Tobacco [...] [facility] 240 [facility] Building [address] [place], [place] [phone] Ronald Mills MD [address] [place] [place] [address] [address] [place] [address] documented as of this encounter [...] as of this encounter Care Teams District Wire Chief Relationship Specialty Start Date End Date Caitlyn Bowie MD [address] [address] PCP - General Internal Medicine 05/06/21 documented as of this encounter
--- OUTSIDE RECORDS SUMMARY | 2024-11-03 14:38 | XMS_ITS | Encounter Summary ---
Author Organization [facility] and [facility] Address [address] [place] [address] Care Team Providers Care Computer Tape Librarian Name Role Phone Caitlyn Bowie MD Primary Care Provider +1- [phone] Encounter Details Date Type Department Care Team (Late st Contact Info) Description 05/02/2022 Scanned Document INTERFACE DEFAULT [address] [place] [address] System, Provider Not In Social History Tobacco [...] Center at [facility] 240 [facility] [address] [place] [address] Ronald Mills MD [address] [place] [address] [address] [place] [address] documented as of this encounter [...] as of this encounter Care Teams Computer Tape Librarian Relationship Specialty Start Date End Date Caitlyn Bowie MD [address] [address] PCP - General Internal Medicine 05/06/21 documented as of this encounter
--- OUTSIDE RECORDS SUMMARY | 2024-11-03 14:38 | XMS_ITS | Encounter Summary ---
Author Organization [facility] and [facility] Address [address] [place] [address] Care Team Providers Care Systems Software Developer Name Role Phone Caitlyn Bowie MD Primary Care Provider +1- [phone] Encounter Details Date Type Department Care Team (Late st Contact Info) Description 07/22/2021 Scanned Document INTERFACE DEFAULT [address] [place] [phone] System, Provider Not In Social History Tobacco [...] Cancer Center at [facility] 240 [facility] Building [address] [place], [place] [phone] Ronald Mills MD [address] [place] [address] [address] [place] [address] documented as of this encounter [...] as of this encounter Care Teams Systems Software Developer Relationship Specialty Start Date End Date Caitlyn Bowie MD [address] [address] PCP - General Internal Medicine 05/06/21 documented as of this encounter
--- OUTSIDE RECORDS SUMMARY | 2024-11-03 14:38 | XMS_ITS | Encounter Summary ---
Author Organization [facility] Address [address] [place] [address] Care Team Providers Care Creative Recruiter Name Role Phone Caitlyn Bowie MD Primary Care Provider +1- [phone] Encounter Details Date Type Department Care Team (Late st Contact Info) Description 09/09/2015 Scanned Document [facility] Health Information Management [address] [place] [address] External, Provider Social History Tobacco Use Types [...] Cancer Center at [facility] 240 [facility] Building [address] [place], [place] [phone] Ronald Mills MD 240 [facility] [address] [place] [address] documented as of this encounter Procedures Procedure Name Priority Date/Time Associated Diagnosis Comments LAB SCAN Routine 09/09/2015 documented in this encounter Results * Lab Scan (09/09/2015) Blood specimen (specimen) us Provider External LAB BLOOD ORDERABLES Final Res ult [facility] documented in this encounter Visit Diagnoses Not on filedocumented in this encounter Additional Health Concerns Infection Onset Date Last Indicated Resolved Time COVID-19 03/05/2022 03/05/2022 03/15/2022 7:18 PM EDT documented as of this encounter Care Teams Creative Recruiter Relationship Specialty Start Date End Date Caitlyn Bowie MD 34[address] [facility] 1 [place] [address] PCP - General Internal Medicine 05/06/21 Henry Kelly MD Pulmonary Department 175 [facility], [address] [place] [address] Physician Pulmonary Disease 09/06/17 06/22/20 documented as of this encounter
--- OUTSIDE RECORDS SUMMARY | 2024-11-03 14:38 | XMS_ITS | Encounter Summary ---
Author Organization [facility] and [facility] Address [address] [place] [address] Care Team Providers Care Retail Advertising Executive Name Role Phone Caitlyn Bowie MD Primary Care Provider +1- [phone] Encounter Details Date Type Department Care Team (Late st Contact Info) Description 08/28/2015 Scanned Document [facility] Health Information Management [address] [place] [phone] External, Provider Social History Tobacco Use Types [...] at [facility] 240 [facility] Building [address] [place], [place] [phone] Ronald Mills MD 240 [facility] [address] [place] [address] documented as of this encounter Visit Diagnoses Not on filedocumented in this encounter Additional Health Concerns Infection Onset Date Last Indicated Resolved Time COVID-19 03/05/2022 03/05/2022 03/15/2022 7:18 PM EDT documented as of this encounter Care Teams Retail Advertising Executive Relationship Specialty Start Date End Date Caitlyn Bowie MD 3400 [facility] 1 [place] [address] PCP - General Internal Medicine 05/06/21 Henry Kelly MD Pulmonary Department 175 [facility], [address] [place] [address] Physician Pulmonary Disease 09/06/17 06/22/20 documented as of this encounter
--- OUTSIDE RECORDS SUMMARY | 2024-11-03 14:38 | XMS_ITS | Encounter Summary ---
Author Organization [facility] Address [address] [place] [address] Phone Care Team Providers Care Corporate Recruiter Name Role Phone Caitlyn Bowie MD Primary Care Provider +1- [phone] Encounter Details Date Type Department Care Team (Late st Contact Info) Description 10/10/2024 Documentation Only [facility] [address] [place] [address] [place], [place] [address] [place] [address] Social History Tobacco Use Types [...] Visit [facility] [address] [place] [address] Rubén Ashraf MD [address] [place] [address] [place] [address] documented as of this encounter Visit Diagnoses Not on filedocumented in this encounter Care Teams Corporate Recruiter Relationship Specialty Start Date End Date Caitlyn Bowie MD [address] [place], [place] PCP - General Internal Medicine 09/24/24 documented as of this encounter
--- OUTSIDE RECORDS SUMMARY | 2024-11-03 14:38 | XMS_ITS | Encounter Summary ---
Author Organization [facility] and [facility] Address [address] [place] [address] Care Team Providers Care Machine Adjuster Leader Case Trim Name Role Phone Caitlyn Bowie MD Primary Care Provider +1- [phone] Encounter Details Date Type Department Care Team (Late st Contact Info) Description 09/07/2021 Scanned Document INTERFACE DEFAULT [address] [place] [address] System, Provider Not In Social History Tobacco [...] Cancer Center at [facility] 240 [facility] Building [address] [place], [place] [phone] Ronald Mills MD [address] [place] [address] [address] [place] [address] documented as of this encounter [...] as of this encounter Care Teams Machine Adjuster Leader Case Trim Relationship Specialty Start Date End Date Caitlyn Bowie MD [address] [address] PCP - General Internal Medicine 05/06/21 documented as of this encounter
--- OUTSIDE RECORDS SUMMARY | 2024-11-03 14:39 | XMS_ITS | Encounter Summary ---
Author Organization [facility] and [facility] Address [address] [place] [address] Care Team Providers Care Staking Press Operator Name Role Phone Caitlyn Bowie MD Primary Care Provider +1- [phone] Encounter Details Date Type Department Care Team (Late st Contact Info) Description 03/12/2019 Scanned Document [facility] Health Information Management [address] [place] [phone] External, Provider Social History Tobacco Use Types [...] at [facility] 240 [facility] Building [address] [place] [address] Ronadl Mills MD [address] [place] [address] [address] [place] [address] documented as of this encounter [...] documented as of this encounter Care Teams Staking Press Operator Relationship Specialty Start Date End Date Caitlyn Bowie MD 34[address] [facility] 1 [place] [address] PCP - General Internal Medicine 05/06/21 Henry Kelly MD Pulmonary Department 175 [facility], [address] [place] [address] Physician Pulmonary Disease 09/06/17 06/22/20 documented as of this encounter
--- OUTSIDE RECORDS SUMMARY | 2024-11-03 14:39 | XMS_ITS | Encounter Summary ---
Author Organization [facility] Address [address] [place] [address] Care Team Providers Care Tutoring Manager Name Role Phone Caitlyn Bowie MD Primary Care Provider +1- [phone] Encounter Details Date Type Department Care Team (Late st Contact Info) Description 09/15/2024 Scanned Document INTERFACE DEFAULT [address] [place] [address] System, Provider Not In Social History Tobacco [...] [facility] 240 [facility] Building [address] [place], [place] [address] Ronald Mills MD [address] [place] [address] [address] [place] [address] documented as of this encounter [...] documented as of this encounter Care Teams Tutoring Manager Relationship Specialty Start Date End Date Caitlyn Bowie MD [address] [address] PCP - General Internal Medicine 05/06/21 documented as of this encounter
--- OUTSIDE RECORDS SUMMARY | 2024-11-03 14:39 | XMS_ITS | Encounter Summary ---
Author Organization [facility] Address [address] [place] [address] Care Team Providers Care Product Promoter Retail Pet Name Role Phone Caitlyn Bowie MD Primary Care Provider +1- [phone] Encounter Details Date Type Department Care Team (Late Contact Info) Description 04/12/2022 Scanned Document [facility] Health Information Management [address] [place] [address] External, Provider Social History Tobacco Use Types [...] at [facility] 240 [facility] Building [address] [place], [place] [phone] Ronald Mills MD [address] [place] [address] [address] [place] [address] documented as of this encounter [...] as of this encounter Care Teams Product Promoter Retail Pet Relationship Specialty Start Date End Date Caitlyn Bowie MD [address] [address] PCP - General Internal Medicine 05/06/21 documented as of this encounter
--- OUTSIDE RECORDS SUMMARY | 2024-11-03 14:39 | XMS_ITS | Encounter Summary ---
Author Organization [facility] and [facility] Address [address] [place] [address] Care Team Providers Care Subsea Engineer Name Role Phone Caitlyn Bowie MD Primary Care Provider +1- [phone] Reason for Visit * Reason Comments Results Encounter Details Date Type Department Care Team (Late st Contact Info) Description 03/15/2022 Telephone [facility] [address] [address] Ronald Mills MD [address] [place] [address] Results Social History Tobacco Use Types [...] at [facility] 240 [facility] Building [address] [place], [place] [phone] Ronald Mills MD 240 [facility] Max [address] [place] [address] documented as of this encounter Visit Diagnoses Not on filedocumented in this encounter Additional Health Concerns Infection Onset Date Last Indicated Resolved Time COVID-19 03/05/2022 03/05/2022 03/15/2022 7:18 PM EDT Assessment Noted Time PHQ-9 Depression Total Score: 2 11/07/19 19 2:06 PM EDT documented as of this encounter Care Teams Subsea Engineer Relationship Specialty Start Date End Date Caitlyn Bowie MD [address] [address] PCP - General Internal Medicine 05/06/21 documented as of this encounter
--- OUTSIDE RECORDS SUMMARY | 2024-11-03 14:39 | XMS_ITS | Encounter Summary ---
Author Organization [facility] Address [address] [place] [address] Care Team Providers Care Greenkeeper Name Role Phone Caitlyn Bowie MD Primary Care Provider +1- [phone] Encounter Details Date Type Department Care Team (Late st Contact Info) Description 11/03/2015 Scanned Document [facility] INCLUDES [facility] Health Information Management [address] [place] [address] External, Provider Social History Tobacco Use Types [...] at [facility] 240 [facility] Building [address] [place], [place] [phone] Ronald Mills MD 240 [facility] [address] [place] [address] documented as of this encounter Procedures Procedure Name Priority Date/Time Associated Diagnosis Comments US RESULT SCAN Routine 11/03/2015 documented in this encounter Results * US Result Scan (11/03/2015) us Provider External IMG SCAN REPORTS Edited Result - Final [facility] [place], [place], [facility] documented in this encounter Visit Diagnoses Not on filedocumented in this encounter Additional Health Concerns Infection Onset Date Last Indicated Resolved Time COVID-19 03/05/2022 03/05/2022 03/15/2022 7:18 PM EDT documented as of this encounter Care Teams Greenkeeper Relationship Specialty Start Date End Date Caitlyn Bowie MD 3400 [facility] Max 1 [place] [address] PCP - General Internal Medicine 05/06/21 Henry Kelly MD Pulmonary Department 175 [facility], [address] [place] [address] Physician Pulmonary Disease 09/06/17 06/22/20 documented as of this encounter
--- OUTSIDE RECORDS SUMMARY | 2024-11-03 14:39 | XMS_ITS | Encounter Summary ---
Author Organization [facility] [place] [facility] and [facility] Address [address] [place] [address] Care Team Providers Care Felt Finishing Supervisor Name Role Phone Caitlyn Bowie MD Primary Care Provider +1- [phone] Encounter Details Date Type Department Care Team (Late st Contact Info) Description 02/06/2019 Scanned Document [facility] Information Management [address] [place] [address] External, Provider Social History Tobacco Use Types [...] Center at [facility] 240 [facility] Building [address] [place] [address] Ronald Mills MD [address] [place] [address] [address] [place] [address] documented as of this encounter [...] Bowie MD 3400 [facility] 1 [place] [address] PCP - General Internal Medicine 05/06/21 Henry Kelly MD Pulmonary Department 175 [facility], [address] [place] [address] Physician Pulmonary Disease 09/06/17 06/22/20 documented as of this encounter
--- OUTSIDE RECORDS SUMMARY | 2024-11-03 14:39 | XMS_ITS | Encounter Summary ---
Author Organization [facility] and [facility] Address [address] [place] [address] Care Team Providers Care Wood Repatcher Name Role Phone Caitlyn Bowie MD Primary Care Provider +1- [phone] Encounter Details Date Type Department Care Team (Late st Contact Info) Description 09/23/2024 Scanned Document INTERFACE DEFAULT [address] [place] [address] System, Provider Not In Social History Tobacco [...] Center at [facility] 240 [facility] Building [address] [place], [place] [phone] Ronald Mills MD [address] [place] [address] [address] [place] [address] documented as of [...] as of this encounter Care Teams Wood Repatcher Relationship Specialty Start Date End Date Caitlyn Bowie MD [address] [address] PCP - General Internal Medicine 05/06/21 documented as of this encounter
--- OUTSIDE RECORDS SUMMARY | 2024-11-03 14:39 | XMS_ITS | Encounter Summary ---
Author Organization [facility] and [facility] Address [address] [place] [address] Care Team Providers Care Ip Attorney Name Role Phone Caitlyn Bowie MD Primary Care Provider +1- [phone] Encounter Details Date Type Department Care Team (Late st Contact Info) Description 04/13/2022 Scanned Document INTERFACE DEFAULT [address] [place] [address] System, Provider Not In Social History Tobacco [...] [facility] 240 [facility] Building [address] [place], [place] [phone] Ronald Mills MD [address] [place] [address] [address] [place] [address] documented as of [...] as of this encounter Care Teams Ip Attorney Relationship Specialty Start Date End Date Caitlyn Bowie MD [address] [address] PCP - General Internal Medicine 05/06/21 documented as of this encounter
--- OUTSIDE RECORDS SUMMARY | 2024-11-03 14:39 | XMS_ITS | Encounter Summary ---
Author Organization [facility] and [facility] Address [address] [place] [address] Care Team Providers Care Technical Manager Name Role Phone Caitlyn Bowie MD Primary Care Provider +1- [phone] Encounter Details Date Type Department Care Team (Late st Contact Info) Description 08/08/2024 Scanned Document INTERFACE DEFAULT [address] [place] [address] System, Provider Not In Social History Tobacco [...] at [facility] 240 [facility] Building [address] [place], [place] [address] Ronald Mills MD [address] [place] [address] [address] [place] [address] documented as of this encounter [...] as of this encounter Care Teams Technical Manager Relationship Specialty Start Date End Date Caitlyn Bowie MD [address] [address] PCP - General Internal Medicine 05/06/21 documented as of this encounter
--- OUTSIDE RECORDS SUMMARY | 2024-11-03 14:39 | XMS_ITS | Encounter Summary ---
Author Organization [facility] and [facility] Address [address] [place] [address] Care Team Providers Care Fish Icer Name Role Phone Caitlyn Bowie MD Primary Care Provider +1- [phone] Encounter Details Date Type Department Care Team (Late st Contact Info) Description 11/04/2015 Scanned Document [facility] Health Information Management [address] [place] [address] External, Provider Social History Tobacco Use Types [...] [facility] 240 [facility] Building [address] [place], [place] [phone] Ronald Mills MD 240 [facility] Max [address] [place] [address] documented as of this encounter Procedures Procedure Name Priority Date/Time Associated Diagnosis Comments NUC MED/PET RESULT SCAN Routine 11/04/2015 documented in this encounter Results * Nuc Med/PET Result Scan (11/04/2015) us Provider External IMG SCAN REPORTS Edited Result - Final [facility] [place], [place], [facility] documented in this encounter Visit Diagnoses Not on filedocumented in this encounter Additional Health Concerns Infection Onset Date Last Indicated Resolved Time COVID-19 03/05/2022 03/05/2022 03/15/2022 7:18 PM EDT documented as of this encounter Care Teams Fish Icer Relationship Specialty Start Date End Date Caitlyn Bowie MD 3400 [facility] Max 1 [place] [address] PCP - General Internal Medicine 05/06/21 Henry Kelly MD Pulmonary Department 175 [facility], [address] [place] [address] Physician Pulmonary Disease 09/06/17 06/22/20 documented as of this encounter
--- OUTSIDE RECORDS SUMMARY | 2024-11-03 14:39 | XMS_ITS | Encounter Summary ---
Author Organization [facility] and [facility] Address [address] [place] [address] Care Team Providers Care Twine Winder Name Role Phone Caitlyn Bowie MD Primary Care Provider +1- [phone] Encounter Details Date Type Department Care Team (Late st Contact Info) Description 01/17/2019 Scanned Document [facility] Health Information Management [address] [place] [address] External, Provider Social History Tobacco Use Types [...] Center at [facility] 240 [facility] Building [address] [place] [address] Ronald Mills MD [address] [place] [address] [address] [place] [address] documented as of this encounter [...] documented as of this encounter Care Teams Twine Winder Relationship Specialty Start Date End Date Caitlyn Bowie MD 3400 [facility] 1 [place] [address] PCP - General Internal Medicine 05/06/21 Henry Kelly MD Pulmonary Department 175 [facility], [address] [place] [address] Physician Pulmonary Disease 09/06/17 06/22/20 documented as of this encounter
--- OUTSIDE RECORDS SUMMARY | 2024-11-03 14:39 | XMS_ITS | Encounter Summary ---
Author Organization [facility] Address [address] [place] [address] Care Team Providers Care Behavioral Health Aide Name Role Phone Caitlyn Bowie MD Primary Care Provider +1- [phone] Encounter Details Date Type Department Care Team (Late st Contact Info) Description 04/11/2019 Scanned Document [facility] Health Information Management [address] [place] [address] External, Provider Social History Tobacco Use Types [...] Cancer Center at [facility] 240 [facility] Building [address] [place] [address] Ronald Mills MD [address] [place] [address] [address] [place] [address] documented as of this encounter [...] of this encounter Care Teams Behavioral Health Aide Relationship Specialty Start Date End Date Caitlyn Bowie MD 3400 [facility] 1 [place] [address] PCP - General Internal Medicine 05/06/21 Henry Kelly MD Pulmonary Department 175 [facility], [address] [place] [address] Physician Pulmonary Disease 09/06/17 06/22/20 documented as of this encounter
--- OUTSIDE RECORDS SUMMARY | 2024-11-03 14:39 | XMS_ITS | Encounter Summary ---
Author Organization [facility] and [facility] Address [address] [place] [address] Care Team Providers Care Power And Recovery Superintendent Name Role Phone Caitlyn Bowie MD Primary Care Provider +1- [phone] Encounter Details Date Type Department Care Team (Late st Contact Info) Description 01/02/2019 Scanned Document [facility] Health Information Management [address] [place] [address] External, Provider Social History Tobacco Use Types [...] at [facility] 240 [facility] Building [address] [place] [address] Ronald Mills MD [address] [place] [address] [address]1 [place] [address] documented as of this encounter [...] as of this encounter Care Teams Power And Recovery Superintendent Relationship Specialty Start Date End Date Caitlyn Bowie MD 3400 [facility] 1 [place] [address] PCP - General Internal Medicine 05/06/21 Henry Kelly MD Pulmonary Department 175 [facility], [address] [place] [address] Physician Pulmonary Disease 09/06/17 06/22/20 documented as of this encounter
--- OUTSIDE RECORDS SUMMARY | 2024-11-03 14:39 | XMS_ITS | Encounter Summary ---
Author Organization [facility] and [facility] Address [address] [place] [address] Care Team Providers Care Industrial Engineering Intern Name Role Phone Caitlyn Bowie MD Primary Care Provider +1- [phone] Encounter Details Date Type Department Care Team (Late st Contact Info) Description 06/17/2016 Scanned Document [facility] Health Information Management [address] [place] [address] External, Provider Social History Tobacco Use Types [...] – [facility] 240 [facility] Building [address] [place], [place] [phone] Ronald Mills MD 240 [facility] A1 [place] [address] documented as of this encounter Visit Diagnoses Not on filedocumented in this encounter Additional Health Concerns Infection Onset Date Last Indicated Resolved Time COVID-19 03/05/2022 03/05/2022 03/15/2022 7:18 PM EDT documented as of this encounter Care Teams Industrial Engineering Intern Relationship Specialty Start Date End Date Caitlyn Bowie MD 3400 [facility] 1 [place] [address] PCP - General Internal Medicine 05/06/21 Henry Kelly MD Pulmonary Department 175 [facility], [address] [place] [address] Physician Pulmonary Disease 09/06/17 06/22/20 documented as of this encounter
--- OUTSIDE RECORDS SUMMARY | 2024-11-03 14:39 | XMS_ITS | Encounter Summary ---
Author Organization [facility] Address [address] [place] [address] Care Team Providers Care House Mover Supervisor Name Role Phone Caitlyn Bowie MD Primary Care Provider +1- [phone] Encounter Details Date Type Department Care Team (Late st Contact Info) Description 12/16/2016 Scanned Document [facility] Health Information Management [address] [place] [address] External, Provider Social History Tobacco Use Types [...] Center at [facility] 240 [facility] Building [address] [place], [place] [phone] Ronald Mills MD 240 [facility] Max [address] [place] [address] documented as of this encounter [...] as of this encounter Care Teams House Mover Supervisor Relationship Specialty Start Date End Date Caitlyn Bowie MD 3400 [facility] 1 [place] [address] PCP - General Internal Medicine 05/06/21 Henry Kelly MD Pulmonary Department 175 [facility], [address] [place] [address] Physician Pulmonary Disease 09/06/17 06/22/20 documented as of this encounter
--- OUTSIDE RECORDS SUMMARY | 2024-11-03 14:39 | XMS_ITS | Encounter Summary ---
Author Organization [facility] Address [address] [place] [address] Care Team Providers Care Boat Canvas Maker Installer Name Role Phone Caitlyn Bowie MD Primary Care Provider +1- [phone] Reason for Visit * Reason Onset Date Comments Other 10/25/2024 Triage 10/25/2024 Encounter Details Date Type Department Care Team (Late st Contact Info) Description 10/25/2024 Telephone [facility] at [facility] 35 [facility] [address] [place], [place] [address] Ronald Mills MD [address] [place] [address] Other; Triage Social History Tobacco Use [...] calling-- states she received a call from consumer affairs specialist physician the other night stating her potassium was very low and to recheck potassium again in a few days. She states she reached out to her Slide Fasteners Inspector as suggested, however, she states they have not returned her call back and its been 2 days. She is concerned as she does not have an order to recheck. She states she lived in [place] and will need orders faxed to [facility] [phone] Please call patient to update. documented in this encounter Plan of Treatment Upcoming Encounters Date Type Department Care Team (Late st Contact Info) Description 04/25/2025 4:00 PM EDT Telemedicine [facility] 240 [facility] Building [address] [place], [place] [address] Ronald Mills MD 240 [facility] [address] [place] [address] documented as of this encounter Visit Diagnoses Not on filedocumented in this encounter Additional Health Concerns Assessment Noted Time PHQ-9 Depression Total Score: 2 11/07/19 19 2:06 PM EDT documented as of this encounter Care Teams Boat Canvas Maker Installer Relationship Specialty Start Date End Date Caitlyn Bowie MD [address] [address] PCP - General Internal Medicine 05/06/21 documented as of this encounter
--- OUTSIDE RECORDS SUMMARY | 2024-11-03 14:39 | XMS_ITS | Clinical Summary ---
Author Organization [facility] Address [address] [place] [address] Phone Care Team Providers Care Signing Agent Name Role Phone Caitlyn Bowie MD Primary Care Provider +1- [phone] Encounters Date Type Department Care Team Description 10/10/2024 Documentation Only [facility] [address] [place] [address] Ron Taylor MA 10/01/2024 Documentation Only [facility] [address] [place] [address] Ron Taylor MA 09/25/2024 Telephone [facility] [address] [place] [address] Ron Taylor MA from Last [...] Visit [facility] [address] [place] [address] Rubén Ashraf MD [address] [place] [address] [place] [phone] Health Maintenance Due Date Last Done Comments Influenza Vaccine (Season Ended) 2025 04/27/2020, 04/22/2019, 04/18/2016 Pneumococcal Vaccine: 50+ Years Completed 08/31/2021, 03/25/2016, 09/17/2015, Additional history exists Hepatitis B Vaccine Aged Out No longe r eligible based on patient's age to complete this topic Insurance Medicare [facility] Care Teams Signing Agent Relationship Specialty Start Date End Date Caitlyn Bowie MD [facility] [place], [place] PCP - General Internal Medicine 09/24/24
--- OUTSIDE RECORDS SUMMARY | 2024-11-03 14:39 | XMS_ITS | Clinical Summary ---
Author Organization [facility] Address [address] [place] [address] Care Team Providers Care Sexual Assault Response Coordinator Name Role Phone Caitlyn Bowie Primary Care Provider [phone] Allergies Active Allergy Reactions Criticality Noted Date [...] Throat tightness Throat tightness Throat tightness Ipratropium [place] Unknown Medium 12/18/2021 Isosorbide Mononitrate 11/23/2020 Other [...] topic Insurance MEDICARE PART A & B [facility] Care Teams Sexual Assault Response Coordinator Relationship Specialty Start Date End Date Caitlyn Bowie [address] [place] [address] PCP - General Internal Medicine 07/18/22
--- OUTSIDE RECORDS SUMMARY | 2024-11-03 14:39 | XMS_ITS | Encounter Summary ---
Author Organization [facility] Address [address] [place] [address] Care Team Providers Care Operations Planner Name Role Phone Caitlyn Bowie MD Primary Care Provider +1- [phone] Encounter Details Date Type Department Care Team (Late st Contact Info) Description 09/09/2024 Scanned Document INTERFACE DEFAULT [address] [place] [address] System, Provider Not In Social History Tobacco [...] – [facility] 240 [facility] Building [address] [place], [place] [address] Ronald Mills MD [address] [place] [address] [address]1 [place] [address] documented as of this encounter [...] as of this encounter Care Teams Operations Planner Relationship Specialty Start Date End Date Caitlyn Bowie MD [address] [address] PCP - General Internal Medicine 05/06/21 documented as of this encounter
--- OUTSIDE RECORDS SUMMARY | 2024-11-03 14:39 | XMS_ITS ---
Author Organization [facility] Address [address] [address] Care Team Providers Care Program Director Substance Abuse Name Role Phone EVELIN RAMSAY Primary Care Provider Yenny Hou Unavailable [phone] REASON FOR VISIT [facility] ifect disease dept Encounters Encounter Location Date Provider Diagnosis [facility] [employer] [address] 06/11/2024 Yenny Elizalde Plan Of Treatment No Information Progress Notes * ONOFRE WATSON:1945 (79 yo F)Acc No.[id number]:06/11/2024 Patient:?CINDA WATSON :1945???Age:79 Y???Sex:Female Address:[address] [place] [address], [address] * true * Date:? Generated for Arely paige/Sebastian/eTransmitting on:?11/03/2024 02:38 PM EDT
--- OUTSIDE RECORDS SUMMARY | 2024-11-03 14:39 | XMS_ITS | Encounter Summary ---
Author Organization [facility] and [facility] Address [address] [place] [address] Care Team Providers Care Program Management Professional Name Role Phone Caitlyn Bowie MD Primary Care Provider +1- [phone] Encounter Details Date Type Department Care Team (Late st Contact Info) Description 01/08/2019 Scanned Document [facility] Health Information Management [address] [place] [address] External, Provider Social History Tobacco Use Types [...] Center at [facility] 240 [facility] [address] [place] [address] Ronald Mills MD [address] [place] [address] [address]1 [place] [address] documented as of this encounter [...] as of this encounter Care Teams Program Management Professional Relationship Specialty Start Date End Date Caitlyn Bowie MD 3400 [facility] 1 [place] [address] PCP - General Internal Medicine 05/06/21 Henry Kelly MD Pulmonary Department 175 [facility], [address] [place] [address] Physician Pulmonary Disease 09/06/17 06/22/20 documented as of this encounter
--- OUTSIDE RECORDS SUMMARY | 2024-11-03 14:39 | XMS_ITS | Encounter Summary ---
Author Organization [facility] and [facility] Address [address] [place] [address] Care Team Providers Care Doubler Operator Name Role Phone Caitlyn Bowie MD Primary Care Provider +1- [phone] Encounter Details Date Type Department Care Team (Late st Contact Info) Description 04/08/2024 Scanned Document INTERFACE DEFAULT [address] [place] [address] System, Provider Not In Social History Tobacco [...] at [facility] 240 [facility] Building [address] [place], [place] [id number] Ronald iMlls MD [address] [place] [address] [address] [place] [address] documented as of this encounter [...] documented as of this encounter Care Teams Doubler Operator Relationship Specialty Start Date End Date Caitlyn Bowie MD [address] [address] PCP - General Internal Medicine 05/06/21 documented as of this encounter
--- OUTSIDE RECORDS SUMMARY | 2024-11-03 14:39 | XMS_ITS | Encounter Summary ---
Author Organization [facility] and [facility] Address [address] [place] [address] Care Team Providers Care Assistant Professor Surgical Technology Name Role Phone Caitlyn Bowie MD Primary Care Provider +1- [phone] Encounter Details Date Type Department Care Team (Late st Contact Info) Description 01/08/2022 Scanned Document INTERFACE DEFAULT [address] [place] [address] System, Provider Not In Social History Tobacco [...] [facility] 240 [facility] Building [address] [place], [place] [phone] Ronald Mills MD [address] [place] [address] [address] [place] [address] documented as of this encounter [...] of this encounter Care Teams Assistant Professor Surgical Technology Relationship Specialty Start Date End Date Caitlyn Bowie MD [address] [address] PCP - General Internal Medicine 05/06/21 documented as of this encounter
--- OUTSIDE RECORDS SUMMARY | 2024-11-03 14:39 | XMS_ITS | Encounter Summary ---
Author Organization [facility] Address [address] [place] [address] Care Team Providers Care Public Improvement Inspector Name Role Phone Caitlyn Bowie MD Primary Care Provider +1- [phone] Encounter Details Date Type Department Care Team (Late st Contact Info) Description 01/26/2019 Scanned Document [facility] Health Information Management [address] [place] [address] External, Provider Social History Tobacco Use Types [...] [facility] 240 [facility] Building [address] [place] [address] Ronald Mills MD [address] [place] [address] [address] [place] [address] documented as of this encounter [...] as of this encounter Care Teams Public Improvement Inspector Relationship Specialty Start Date End Date Caitlyn Bowie MD 3400 [facility] 1 [place] [address] PCP - General Internal Medicine 05/06/21 Henry Kelly MD Pulmonary Department 175 [facility], [address] [place] [address] Physician Pulmonary Disease 09/06/17 06/22/20 documented as of this encounter
--- OUTSIDE RECORDS SUMMARY | 2024-11-03 14:39 | XMS_ITS | Encounter Summary ---
Author Organization [facility] Address [address] [place] [address] Care Team Providers Care Primary Care Provider Name Role Phone Caitlyn Bowie MD Primary Care Provider +1- [phone] Encounter Details Date Type Department Care Team (Late st Contact Info) Description 04/19/2024 Scanned Document INTERFACE DEFAULT [address] [place] [address] System, Provider Not In Social History Tobacco [...] [facility] 240 [facility] Building [address] [place], [place] [address] Ronald Mills MD [address] [place] [address] [address] [place] [address] documented as of this encounter [...] documented as of this encounter Care Teams Primary Care Provider Relationship Specialty Start Date End Date Caitlyn Bowie MD [address] [address] PCP - General Internal Medicine 05/06/21 documented as of this encounter
--- OUTSIDE RECORDS SUMMARY | 2024-11-03 14:39 | XMS_ITS | Encounter Summary ---
Author Organization [facility] and [facility] Address [address] [place] [address] Care Team Providers Care Cell Tower Climber Name Role Phone Caitlyn Bowie MD Primary Care Provider +1- [phone] Encounter Details Date Type Department Care Team (Late st Contact Info) Description 12/27/2018 Scanned Document [facility] Health Information Management [address] [place] [address] External, Provider Social History Tobacco Use Types [...] 4:00 PM EDT Telemedicine Cancer Center at [facility] 240 [facility] Building [address] [place] [address] Ronald Mills MD [address] [place] [address] [address] [place] [address] documented as of this encounter [...] documented as of this encounter Care Teams Cell Tower Climber Relationship Specialty Start Date End Date Caitlyn Bowie MD 3400 [facility] 1 [place] [address] PCP - General Internal Medicine 05/06/21 Henry Kelly MD Pulmonary Department 175 [facility], [address] [place] [address] Physician Pulmonary Disease 09/06/17 06/22/20 documented as of this encounter
--- OUTSIDE RECORDS SUMMARY | 2024-11-03 14:39 | XMS_ITS | Encounter Summary ---
Author Organization [facility] Address [address] [place] [address] Care Team Providers Care Delivery Professional Name Role Phone Pcp, No Primary Care Provider Brennan Mario MD Primary Care Provider [phone] Caitlyn Bowie MD Primary Care Provider +1- [phone] Encounter Details Date Type Department Care Team (Late st Contact Info) Description 01/04/2022 Scanned Document [facility] Neurology Ophthalmology [address] [address] Yary Whitten DO [address] [place] [address] Social History Tobacco Use Types Packs/Day [...] on filedocumented in this encounter Care Teams Delivery Professional Relationship Specialty Start Date End Date Pcp, No PCP - General General Medicine 10/04/21 07/18/22 Brennan Burnett MD [address] [place] [address] PCP - General 07/19/22 03/19/23 Caitlyn Bowie MD 3400 [place] [address] PCP - General Internal Medicine 03/20/23 documented as of this encounter
--- OUTSIDE RECORDS SUMMARY | 2024-11-03 14:39 | XMS_ITS | Encounter Summary ---
Author Organization [facility] Address [address] [place] [address] Care Team Providers Care Costume Technician Name Role Phone Caitlyn Bowie MD Primary Care Provider +1- [phone] Encounter Details Date Type Department Care Team (Late st Contact Info) Description 12/16/2015 Scanned Document [facility] Health Information Management [address] [place] [address] External, Provider Social History Tobacco Use Types [...] Center at [facility] 240 [facility] Building [address] [place], [place] [id number] Ronald Mills MD 240 [facility] Max [address] [place] [address] documented as of this encounter Procedures Procedure Name Priority Date/Time Associated Diagnosis Comments US RESULT SCAN Routine 12/16/2015 documented in this encounter Results * US Result Scan (12/16/2015) us Provider External IMG SCAN REPORTS Edited Result - Final [facility] [place], [place], [facility] documented in this encounter Visit Diagnoses Not on filedocumented in this encounter Additional Health Concerns Infection Onset Date Last Indicated Resolved Time COVID-19 03/05/2022 03/05/2022 03/15/2022 7:18 PM EDT documented as of this encounter Care Teams Costume Technician Relationship Specialty Start Date End Date Caitlyn Bowie MD 3400 [facility] 1 [place] [address] PCP - General Internal Medicine 05/06/21 Henry Kelly MD Pulmonary Department 175 [facility], [address] [place] [address] Physician Pulmonary Disease 09/06/17 06/22/20 documented as of this encounter
--- OUTSIDE RECORDS SUMMARY | 2024-11-03 14:39 | XMS_ITS | Encounter Summary ---
Author Organization [facility] Address [address] [place] [address] Care Team Providers Care Candy Vendor Name Role Phone Caitlyn Bowie MD Primary Care Provider +1- [phone] Encounter Details Date Type Department Care Team (Late st Contact Info) Description 01/28/2019 Scanned Document Cardiovascular Medicine at [address] [place] [address] Cristian Arreguin MBBS [address] [place] [address] Social History Tobacco Use Types [...] PM EDT Telemedicine Cancer Center at [address] [place] [address] Ronald Mills MD [address] [place] [address] [address] [place] [address] documented as of this encounter Visit Diagnoses Not on filedocumented in this encounter Additional Health Concerns Infection Onset Date Last Indicated Resolved Time COVID-19 03/05/2022 03/05/2022 03/15/2022 7:18 PM EDT Assessment Noted Time PHQ-9 Depression Total Score: 2 11/07/19 19 2:06 PM EDT documented as of this encounter Care Teams Candy Vendor Relationship Specialty Start Date End Date Caitlyn Bowie MD 3400 [facility] 1 [place] [address] PCP - General Internal Medicine 05/06/21 Henry Kelly MD Pulmonary Department [address] [place] [address], [address] [place] [address] Physician Pulmonary Disease 09/06/17 06/22/20 documented as of this encounter
--- OUTSIDE RECORDS SUMMARY | 2024-11-03 14:39 | XMS_ITS | Encounter Summary ---
Author Organization [facility] Address [address] [place] [address] Care Team Providers Care High Risk Case Manager Name Role Phone Caitlyn Bowie MD Primary Care Provider +1- [phone] Encounter Details Date Type Department Care Team (Late st Contact Info) Description 01/09/2019 Scanned Document [facility] Health Information Management [address] [place] [address] External, Provider Social History Tobacco Use Types [...] [facility] at [facility] 240 [facility] Building [address] [place] [address] Ronald Mills MD [address] [place] [address] [address]1 [place] [address] documented as of this encounter [...] Bowie MD 3400 [facility] 1 [place] [address] PCP - General Internal Medicine 05/06/21 Henry Kelly MD Pulmonary Department 175 [facility], [address] [place] [address] Physician Pulmonary Disease 09/06/17 06/22/20 documented as of this encounter
--- OUTSIDE RECORDS SUMMARY | 2024-11-03 14:39 | XMS_ITS | Encounter Summary ---
Author Organization [facility] and [facility] Address [address] [place] [address] Care Team Providers Care Edi Consultant Name Role Phone Caitlyn Bowie MD Primary Care Provider +1- [phone] Encounter Details Date Type Department Care Team (Late st Contact Info) Description 01/28/2019 Scanned Document [facility] Health Information Management [address] [place] [address] External, Provider Social History Tobacco Use Types [...] at [facility] 240 [facility] [address] [place] [address] Ronald Mills MD [address] [place] [address] [address]1 [place] [address] documented as of this encounter Visit Diagnoses Not on filedocumented in this encounter Additional Health Concerns Infection Onset Date Last Indicated Resolved Time COVID-19 03/05/2022 03/05/2022 03/15/2022 7:18 PM EDT Assessment Noted Time PHQ-9 Depression Total Score: 2 11/07/19 19 2:06 PM EDT documented as of this encounter Care Teams Edi Consultant Relationship Specialty Start Date End Date Caitlyn Bowie MD 3400 [facility] 1 [place] [address] PCP - General Internal Medicine 05/06/21 Henry Kelly MD Pulmonary Department 175 [facility], [address] [place] [address] Physician Pulmonary Disease 09/06/17 06/22/20 documented as of this encounter
--- OUTSIDE RECORDS SUMMARY | 2024-11-03 14:39 | XMS_ITS | Encounter Summary ---
Author Organization [facility] Address [address] [place] [address] Care Team Providers Care Shampooer Name Role Phone Caitlyn Bowie MD Primary Care Provider +1- [phone] Encounter Details Date Type Department Care Team (Late st Contact Info) Description 04/23/2024 Scanned Document INTERFACE DEFAULT [address] [place] [address] System, Provider Not In Social History Tobacco [...] [facility] 240 [facility] Building [address] [place], [place] [phone] Ronald Mills MD [address] [place] [address] [address] [place] [address] documented as of this encounter [...] documented as of this encounter Care Teams Shampooer Relationship Specialty Start Date End Date Caitlyn Bowie MD [address] [address] PCP - General Internal Medicine 05/06/21 documented as of this encounter
--- OUTSIDE RECORDS SUMMARY | 2024-11-03 14:39 | XMS_ITS | Encounter Summary ---
Author Organization [facility] Address [address] [place] [address] Care Team Providers Care Music Manager Name Role Phone Caitlyn Bowie MD Primary Care Provider +1- [phone] Encounter Details Date Type Department Care Team (Late st Contact Info) Description 04/12/2022 Scanned Document INTERFACE DEFAULT [address] [place] [address] System, Provider Not In Social History Tobacco [...] [facility] 240 [facility] Building [address] [place] [address] Ronald Mills MD [address] [place] [address] [address] [place] [address] documented as of this encounter [...] as of this encounter Care Teams Music Manager Relationship Specialty Start Date End Date Caitlyn Bowie MD [address] [address] PCP - General Internal Medicine 05/06/21 documented as of this encounter
--- OUTSIDE RECORDS SUMMARY | 2024-11-03 14:39 | XMS_ITS | Encounter Summary ---
Author Organization [facility] and [facility] Address [address] [place] [address] Care Team Providers Care Dictating Transcribing Machine Servicer Name Role Phone Caitlyn Bowie MD Primary Care Provider +1- [phone] Encounter Details Date Type Department Care Team (Late st Contact Info) Description 01/30/2019 Scanned Document [facility] Health Information Management [address] [place] [address] External, Provider Social History Tobacco Use Types [...] at [facility] [place] [address] [facility] Building [address] [place] [address] Ronald Mills MD [address] [place] [address] [address]1 [place] [address] documented as of this encounter [...] documented as of this encounter Care Teams Dictating Transcribing Machine Servicer Relationship Specialty Start Date End Date Caitlyn Bowie MD 3400 [facility] 1 [place] [address] PCP - General Internal Medicine 05/06/21 Henry Kelly MD Pulmonary Department 175 [facility], [address] [place] [address] Physician Pulmonary Disease 09/06/17 06/22/20 documented as of this encounter
--- OUTSIDE RECORDS SUMMARY | 2024-11-03 14:39 | XMS_ITS | Encounter Summary ---
Author Organization [facility] and [facility] Address [address] [place] [address] Care Team Providers Care Fuel Quality Tech Name Role Phone Caitlyn Bowie MD Primary Care Provider +1- [phone] Encounter Details Date Type Department Care Team (Late st Contact Info) Description 04/14/2022 Scanned Document INTERFACE DEFAULT [address] [place] [address] System, Provider Not In Social History Tobacco [...] Center, [facility] Building [address] [place] [address] Ronald Mills MD [address] [place] [address] [address] [place] [address] documented as of this encounter Visit Diagnoses Not on filedocumented in this encounter Additional Health Concerns Assessment Noted Time PHQ-9 Depression Total Score: 2 11/07/19 19 2:06 PM EDT documented as of this encounter Care Teams Fuel Quality Tech Relationship Specialty Start Date End Date Caitlyn Bowie MD [address] [address] PCP - General Internal Medicine 05/06/21 documented as of this encounter
--- OUTSIDE RECORDS SUMMARY | 2024-11-03 14:39 | XMS_ITS | Encounter Summary ---
Author Organization [facility] Address [address] [place] [address] Care Team Providers Care Vending Manager Name Role Phone Caitlyn Bowie MD Primary Care Provider +1- [phone] Encounter Details Date Type Department Care Team (Late st Contact Info) Description 03/02/2022 Scanned Document [facility] Health Information Management [address] [place] [address] External, Provider Social History Tobacco Use Types [...] Center at [facility] 240 [facility] Building [address] [place], [place] [phone] Ronald Mills MD [address] [place] [address] [address] [place] [address] documented as of this encounter Visit Diagnoses Not on filedocumented in this encounter Additional Health Concerns Infection Onset Date Last Indicated Resolved Time COVID-19 03/05/2022 03/05/2022 03/15/2022 7:18 PM EDT Assessment Noted Time PHQ-9 Depression Total Score: 2 11/07/19 19 2:06 PM EDT documented as of this encounter Care Teams Vending Manager Relationship Specialty Start Date End Date Caitlyn Bowie MD [address] [address] PCP - General Internal Medicine 05/06/21 documented as of this encounter
--- OUTSIDE RECORDS SUMMARY | 2024-11-03 14:39 | XMS_ITS | Encounter Summary ---
Author Organization [facility] Address [address] [place] [address] Care Team Providers Care Roofing Subcontractor Name Role Phone Caitlyn Bowie MD Primary Care Provider +1- [phone] Encounter Details Date Type Department Care Team (Late st Contact Info) Description 03/20/2023 Scanned Document [facility] Radiology [address] [place] [address] Caitlyn Bowie MD [address]00 [place] [address] Social History Tobacco Use Types Packs/Day Years [...] on filedocumented in this encounter Care Teams Roofing Subcontractor Relationship Specialty Start Date End Date Caitlyn Bowie MD [address]00 [place] [address] PCP - General Internal Medicine 03/20/23 documented as of this encounter
--- OUTSIDE RECORDS SUMMARY | 2024-11-03 14:39 | XMS_ITS | Encounter Summary ---
Author Organization [facility] and [facility] Address [address] [place] [address] Care Team Providers Care Overlock Operator Name Role Phone Caitlyn Bowie MD Primary Care Provider +1- [phone] Encounter Details Date Type Department Care Team (Late st Contact Info) Description 02/08/2016 Scanned Document [facility] Health Information Management [address] [place] [address] External, Provider Social History Tobacco Use Types [...] [facility] 240 [facility] Building [address] [place], [place] [phone] Ronald Mills MD 240 [facility] A1 [place] [address] documented as of this encounter Visit Diagnoses Not on filedocumented in this encounter Additional Health Concerns Infection Onset Date Last Indicated Resolved Time COVID-19 03/05/2022 03/05/2022 03/15/2022 7:18 PM EDT documented as of this encounter Care Teams Overlock Operator Relationship Specialty Start Date End Date Caitlyn Bowie MD 3400 [facility] 1 [place] [address] PCP - General Internal Medicine 05/06/21 Henry Kelly MD Pulmonary Department 175 [facility], [address] [place] [address] Physician Pulmonary Disease 09/06/17 06/22/20 documented as of this encounter
--- OUTSIDE RECORDS SUMMARY | 2024-11-03 14:39 | XMS_ITS | Encounter Summary ---
Author Organization [facility] Address [address] [place] [address] Care Team Providers Care Shop Director Name Role Phone Caitlyn Bowie MD Primary Care Provider +1- [phone] Encounter Details Date Type Department Care Team (Late st Contact Info) Description 10/10/2016 Scanned Document [facility] Health Information Management [address] [place] [address] External, Provider Social History Tobacco Use Types [...] [facility] 240 [facility] Building [address] [place], [place] [phone] Ronald Mills MD 240 [facility] A1 [place] [address] documented as of this encounter Visit Diagnoses Not on filedocumented in this encounter Additional Health Concerns Infection Onset Date Last Indicated Resolved Time COVID-19 03/05/2022 03/05/2022 03/15/2022 7:18 PM EDT documented as of this encounter Care Teams Shop Director Relationship Specialty Start Date End Date Caitlyn Bowie MD 3400 [facility] 1 [place] [address] PCP - General Internal Medicine 05/06/21 Henry Kelly MD Pulmonary Department 175 [facility], [address] [place] [address] Physician Pulmonary Disease 09/06/17 06/22/20 documented as of this encounter
--- OUTSIDE RECORDS SUMMARY | 2024-11-03 14:39 | XMS_ITS | Encounter Summary ---
Author Organization [facility] Address [address] [place] [address] Care Team Providers Care Rehabilitation Counselor Name Role Phone Caitlyn Bowie MD Primary Care Provider +1- [phone] Reason for Referral * Imaging (Routine) - Closed Specialty Diagnoses / Procedures Referred By Contac t Referred To Contact Procedures NM Lung Ventilation Perfusion ([facility]) External, Provider Referral ID Status Reason Start Date Expiration Date Visits Re quested Visits Authorized [id number] Closed 08/22/2016 08/22/2017 4 4 Encounter Details Date Type Department Care Team (Late st Contact Info) Description 08/22/2016 Scanned Document Thoracic Oncology Program at [address] [address] External, Provider Social History Tobacco Use Types [...] 4:00 PM EDT Telemedicine Cancer Center at [address] [place] [address] Ronald Mills MD [address] [place] [address] Rd [address] [place] [phone] documented as of this encounter Procedures Procedure Name Priority Date/Time Associated Diagnosis Comments XRAY RESULT SCAN Routine 07/27/2016 CT RESULT SCAN Routine 07/27/2016 CT RESULT SCAN Routine 07/27/2016 CARDIAC EKG RESULT SCAN Routine 07/27/2016 LAB SCAN Routine 07/27/2016 NM LUNG VENTILATION PERFUSIO N ([facility]) Routine 07/27/2016 documented in this encounter Results * Xray Result Scan (07/27/2016) us Provider External IMG SCAN REPORTS Final Result Performing Organization Address [facility] Co de Phone Number [facility] * CT Result Scan (07/27/2016) us Provider External IMG SCAN REPORTS Final Result Performing Organization Address [facility] Co de Phone Number [facility] * Cardiac EKG Result Scan (07/27/2016) us Provider External CV CARDIAC REPORT (CVR) Final Result Performing Organization Address [facility] Co de Phone Number [facility] * CT Result Scan (07/27/2016) us Provider External IMG SCAN REPORTS Final Result Performing Organization Address [facility] Co de Phone Number [facility] * Lab Scan (07/27/2016) Blood specimen (specimen) us Provider External LAB BLOOD ORDERABLES Final Res ult Performing Organization Address [facility] Co de Phone Number [facility] * NM Lung Ventilation Perfusion ([facility]) (07/27/2016) Anatomical Region Laterality Modality Chest, Lung Nuclear Medicine us Provider External IMG NM ORDERABLES Final Result documented in this encounter Visit Diagnoses Not on filedocumented in this encounter Additional Health Concerns Infection Onset Date Last Indicated Resolved Time COVID-19 03/05/2022 03/05/2022 03/15/2022 7:18 PM EDT documented as of this encounter Care Teams Rehabilitation Counselor Relationship Specialty Start Date End Date Caitlyn Bowie MD [address] [facility] 1 [place] [address] PCP - General Internal Medicine 05/06/21 Henry Kelly MD Pulmonary Department 175 [facility], [address] [place] [address] Physician Pulmonary Disease 09/06/17 06/22/20 documented as of this encounter
--- OUTSIDE RECORDS SUMMARY | 2024-11-03 14:39 | XMS_ITS | Encounter Summary ---
Author Organization [facility] Address [address] [place] [address] Care Team Providers Care Log Peeler Name Role Phone Caitlyn Bowie MD Primary Care Provider +1- [phone] Encounter Details Date Type Department Care Team (Late st Contact Info) Description 12/01/2015 Scanned Document [facility] Health Information Management [address] [place] [address] External, Provider Social History Tobacco Use Types [...] [facility] [address] [facility] Building [address] [place], [place] [phone] Ronald Mills MD [address] [facility] [address] [place] [address] documented as of this encounter Procedures Procedure Name Priority Date/Time Associated Diagnosis Comments CT RESULT SCAN Routine 12/01/2015 documented in this encounter Results * CT Result Scan (12/01/2015) us Provider External IMG SCAN REPORTS Edited Result - Final [facility] Prim, CT, [facility] documented in this encounter Visit Diagnoses Not on filedocumented in this encounter Additional Health Concerns Infection Onset Date Last Indicated Resolved Time COVID-19 03/05/2022 03/05/2022 03/15/2022 7:18 PM EDT documented as of this encounter Care Teams Log Peeler Relationship Specialty Start Date End Date Caitlyn Bowie MD [address] [facility] Max 1 [place] [address] PCP - General Internal Medicine 05/06/21 Henry Kelly MD Pulmonary Department 175 [facility], [address] [place] [address] Physician Pulmonary Disease 09/06/17 06/22/20 documented as of this encounter
--- OUTSIDE RECORDS SUMMARY | 2024-11-03 14:39 | XMS_ITS | Encounter Summary ---
Author Organization [facility] Address [address] [place] [address] Phone Care Team Providers Care Paper Cup Machine Tender Name Role Phone Caitlyn Bowie MD Primary Care Provider +1- [phone] Encounter Details Date Type Department Care Team (Late st Contact Info) Description 10/01/2024 Documentation Only [facility] [address] [place] [address] Kendra TaylorPutnam, [place] [address] [place] [address] Social History Tobacco Use Types [...] Visit [facility] [address] [place] [address] Rubén Ashraf MD [address] [facility] [place] [address] documented as of this encounter Visit Diagnoses Not on filedocumented in this encounter Care Teams Paper Cup Machine Tender Relationship Specialty Start Date End Date Caitlyn Bowie MD [address] [place], [place] PCP - General Internal Medicine 09/24/24 documented as of this encounter
--- OUTSIDE RECORDS SUMMARY | 2024-11-03 14:39 | XMS_ITS | Encounter Summary ---
Author Organization [facility] Address [address] [place] [address] Care Team Providers Care Rehab Liaison Name Role Phone Caitlyn Bowie MD Primary Care Provider +1- [phone] Encounter Details Date Type Department Care Team (Late st Contact Info) Description 12/03/2015 Scanned Document [facility] Health Information Management [address] [place] [phone] External, Provider Social History Tobacco Use Types [...] [facility] [place] [address] [facility] Building [address] [place], [place] [phone] Ronald Mills MD [address] [facility] [address] [place] [address] documented as of this encounter Procedures Procedure Name Priority Date/Time Associated Diagnosis Comments LAB SCAN Routine 12/03/2015 documented in this encounter Results * Lab Scan (12/03/2015) Blood specimen (specimen) us Provider External LAB BLOOD ORDERABLES Edited Re sult - Final [facility] documented in this encounter Visit Diagnoses Not on filedocumented in this encounter Additional Health Concerns Infection Onset Date Last Indicated Resolved Time COVID-19 03/05/2022 03/05/2022 03/15/2022 7:18 PM EDT documented as of this encounter Care Teams Rehab Liaison Relationship Specialty Start Date End Date Caitlyn Bowie MD [address] [facility] 1 [place] [address] PCP - General Internal Medicine 05/06/21 Henry Kelly MD Pulmonary Department 175 [facility], [address] [place] [address] Physician Pulmonary Disease 09/06/17 06/22/20 documented as of this encounter
--- OUTSIDE RECORDS SUMMARY | 2024-11-03 14:39 | XMS_ITS | Encounter Summary ---
Author Organization [facility] Address [address] [place] [address] Care Team Providers Care Assembly And Packing Supervisor Name Role Phone Caitlyn Bowie MD Primary Care Provider +1- [phone] Encounter Details Date Type Department Care Team (Late st Contact Info) Description 04/22/2019 Scanned Document [facility] Health Information Management [address] [place] [address] External, Provider Social History Tobacco Use Types [...] [facility] [address] [facility] [address] [place] [address] Ronald Mills MD [address] [place] [address] [address] [place] [address] documented as of this encounter Visit Diagnoses Not on filedocumented in this encounter Additional Health Concerns Infection Onset Date Last Indicated Resolved Time COVID-19 03/05/2022 03/05/2022 03/15/2022 7:18 PM EDT Assessment Noted Time PHQ-9 Depression Total Score: 2 11/07/19 19 2:06 PM EDT documented as of this encounter Care Teams Assembly And Packing Supervisor Relationship Specialty Start Date End Date Caitlyn Bowie MD 34[address] [facility] 1 [place] [address] PCP - General Internal Medicine 05/06/21 Henry Kelly MD Pulmonary Department 175 [facility], [address] [place] [address] Physician Pulmonary Disease 09/06/17 06/22/20 documented as of this encounter
--- OUTSIDE RECORDS SUMMARY | 2024-11-03 14:39 | XMS_ITS | Encounter Summary ---
Author Organization [facility] Address [address] [place] [address] Care Team Providers Care Wound Treatment Rn Name Role Phone Caitlyn Bowie MD Primary Care Provider +1- [phone] Encounter Details Date Type Department Care Team (Late st Contact Info) Description 04/04/2016 Scanned Document [facility] Health Information Management [address] [place] [address] External, Provider Social History Tobacco Use Types [...] [facility] at [facility] [address] [facility] [address] [place], [place] [phone] Ronald Mills MD 240 [facility] [address] [place] [address] documented as of this encounter Procedures Procedure Name Priority Date/Time Associated Diagnosis Comments LAB SCAN Routine 04/04/2016 documented in this encounter Results * Lab Scan (04/04/2016) Blood specimen (specimen) us Provider External LAB BLOOD ORDERABLES Final Res ult [facility] documented in this encounter Visit Diagnoses Not on filedocumented in this encounter Additional Health Concerns Infection Onset Date Last Indicated Resolved Time COVID-19 03/05/2022 03/05/2022 03/15/2022 7:18 PM EDT documented as of this encounter Care Teams Wound Treatment Rn Relationship Specialty Start Date End Date Caitlyn Bowie MD 34[address] [facility] 1 [place] [address] PCP - General Internal Medicine 05/06/21 Henry Kelly MD Pulmonary Department 175 [facility], [address] [place] [address] Physician Pulmonary Disease 09/06/17 06/22/20 documented as of this encounter
--- OUTSIDE RECORDS SUMMARY | 2024-11-03 14:39 | XMS_ITS | Encounter Summary ---
Author Organization [facility] and [facility] Address [address] [place] [address] Care Team Providers Care Asl Interpreter Name Role Phone Caitlyn Bowie MD Primary Care Provider +1- [phone] Encounter Details Date Type Department Care Team (Late st Contact Info) Description 12/29/2021 Telephone [facility] at [address] - [address] [address] Ronald Mills MD [address] [place] [address] Social History Tobacco Use Types Packs/Day [...] not sure where the blood's coming from. [phone] documented in this encounter Plan of Treatment Upcoming Encounters Date Type Department Care Team (Late st Contact Info) Description 04/25/2025 4:00 PM EDT Telemedicine [facility] at [facility] [address] [facility] [address] [place] [address] Ronald Mills MD 240 [facility] [address] [place] [address] documented as of this encounter Visit Diagnoses Not on filedocumented in this encounter Additional Health Concerns Infection Onset Date Last Indicated Resolved Time COVID-19 03/05/2022 03/05/2022 03/15/2022 7:18 PM EDT Assessment Noted Time PHQ-9 Depression Total Score: 2 11/07/19 19 2:06 PM EDT documented as of this encounter Care Teams Asl Interpreter Relationship Specialty Start Date End Date Caitlyn Bowie MD [address] [address] PCP - General Internal Medicine 05/06/21 documented as of this encounter
--- OUTSIDE RECORDS SUMMARY | 2024-11-03 14:39 | XMS_ITS | Encounter Summary ---
Author Organization [facility] Address [address] [place] [address] Care Team Providers Care Manager Behavioral Name Role Phone Caitlyn Bowie MD Primary Care Provider +1- [phone] Encounter Details Date Type Department Care Team (Late st Contact Info) Description 12/14/2016 Scanned Document [facility] Health Information Management [address] [place] [phone] External, Provider Social History Tobacco Use Types [...] Telemedicine Cancer Center at [facility] 240 [facility] Building [address] [place], [place] [phone] Ronald Mills MD 240 [facility] [address] [place] [address] documented as of this encounter [...] as of this encounter Care Teams Manager Behavioral Relationship Specialty Start Date End Date Caitlyn Bowie MD 3400 [facility] 1 [place] [address] PCP - General Internal Medicine 05/06/21 Henry Kelly MD Pulmonary Department 175 [facility], [address] [place] [address] Physician Pulmonary Disease 09/06/17 06/22/20 documented as of this encounter
--- OUTSIDE RECORDS SUMMARY | 2024-11-03 14:39 | XMS_ITS | Encounter Summary ---
Author Organization [facility] Address [address] [place] [address] Care Team Providers Care Fire Hose Curer Name Role Phone Caitlyn Bowie MD Primary Care Provider +1- [phone] Encounter Details Date Type Department Care Team (Late st Contact Info) Description 12/28/2018 Scanned Document [facility] Health Information Management [address] [place] [address] External, Provider Social History Tobacco Use Types [...] [facility] 240 [facility] [address] [place] [address] Ronald Mills MD [address] [place] [address] [address] [place] [address] documented as of this encounter [...] as of this encounter Care Teams Fire Hose Curer Relationship Specialty Start Date End Date Caitlyn Bowie MD 34[address] [facility] Max 1 [place] [address] PCP - General Internal Medicine 05/06/21 Henry Kelyl MD Pulmonary Department 175 [facility], [address] [place] [address] Physician Pulmonary Disease 09/06/17 06/22/20 documented as of this encounter
--- OUTSIDE RECORDS SUMMARY | 2024-11-03 14:39 | XMS_ITS | Encounter Summary ---
Author Organization [facility] Address [address] [place] [address] Care Team Providers Care Felt Washing Machine Tender Name Role Phone Caitlyn Bowie MD Primary Care Provider +1- [phone] Encounter Details Date Type Department Care Team (Late st Contact Info) Description 12/14/2016 Scanned Document [facility] Health Information Management [address] [place] [address] External, Provider Social History Tobacco Use Types [...] [facility] Building [address] [place], [place] [phone] Ronald Mills MD 240 [facility] A[address] [place] [address] documented as of this encounter Visit Diagnoses Not on filedocumented in this encounter Additional Health Concerns Infection Onset Date Last Indicated Resolved Time COVID-19 03/05/2022 03/05/2022 03/15/2022 7:18 PM EDT documented as of this encounter Care Teams Felt Washing Machine Tender Relationship Specialty Start Date End Date Caitlyn Bowie MD 3400 [facility] 1 [place] [address] PCP - General Internal Medicine 05/06/21 Herny Kelly MD Pulmonary Department 175 [facility], [address] [place] [address] Physician Pulmonary Disease 09/06/17 06/22/20 documented as of this encounter
--- OUTSIDE RECORDS SUMMARY | 2024-11-03 14:39 | XMS_ITS | Encounter Summary ---
Author Organization [facility] Address [address] [place] [address] Care Team Providers Care Train Gateman Name Role Phone Caitlyn Bowie MD Primary Care Provider +1- [phone] Encounter Details Date Type Department Care Team (Late st Contact Info) Description 12/16/2016 Scanned Document [facility] Health Information Management [address] [place] [address] External, Provider Social History Tobacco Use Types [...] [facility] 240 [facility] Building [address] [place], [place] [phone] Ronald Mills MD 240 [facility] Max [address] [place] [address] documented as of this encounter [...] documented as of this encounter Care Teams Train Gateman Relationship Specialty Start Date End Date Caitlyn Bowie MD 3400 [facility] 1 [place] [address] PCP - General Internal Medicine 05/06/21 Henry Kelly MD Pulmonary Department 175 [facility], [address] [place] [address] Physician Pulmonary Disease 09/06/17 06/22/20 documented as of this encounter
--- OUTSIDE RECORDS SUMMARY | 2024-11-03 14:39 | XMS_ITS | Encounter Summary ---
Author Organization [facility] Address [address] [place] [address] Care Team Providers Care Merchant Mariner Name Role Phone Caitlyn Bowie MD Primary Care Provider +1- [phone] Encounter Details Date Type Department Care Team (Late st Contact Info) Description 01/13/2019 Scanned Document [facility] Health Information Management [address] [place] [address] External, Provider Social History Tobacco Use Types [...] [facility] 240 [facility] Building [address] [place] [address] Ronald Mills MD [address] [place] [address] [address] [place] [address] documented as of this encounter [...] documented as of this encounter Care Teams Merchant Mariner Relationship Specialty Start Date End Date Caitlyn Bowie MD [address] [facility] 1 [place] [address] PCP - General Internal Medicine 05/06/21 Henry Kelly MD Pulmonary Department 175 [facility], [address] [place] [address] Physician Pulmonary Disease 09/06/17 06/22/20 documented as of this encounter
--- OUTSIDE RECORDS SUMMARY | 2024-11-03 14:40 | XMS_ITS | Encounter Summary ---
Author Organization [facility] and [facility] Address [address] [place] [address] Care Team Providers Care Rig Builder Helper Name Role Phone Caitlyn Bowie MD Primary Care Provider +1- [phone] Encounter Details Date Type Department Care Team (Late st Contact Info) Description 07/27/2016 Scanned Document Thoracic Oncology Program at [address] [address] Suzy Kong MD [address] [place] [address] Social History Tobacco Use Types Packs/Day [...] 4:00 PM EDT Telemedicine Cancer Center at [address] [place], [place] [phone] Ronald Mills MD 240 [facility] [address] [place] [address] documented as of this encounter Visit Diagnoses Not on filedocumented in this encounter Additional Health Concerns Infection Onset Date Last Indicated Resolved Time COVID-19 03/05/2022 03/05/2022 03/15/2022 7:18 PM EDT documented as of this encounter Care Teams Rig Builder Helper Relationship Specialty Start Date End Date Caitlyn Bowie MD 3400 [facility] Max 1 [place] [address] PCP - General Internal Medicine 05/06/21 Henry Kelly MD Pulmonary Department 175 [facility], [address] [place] [address] Physician Pulmonary Disease 09/06/17 06/22/20 documented as of this encounter
--- OUTSIDE RECORDS SUMMARY | 2024-11-03 14:40 | XMS_ITS | Encounter Summary ---
Author Organization [facility] Address [address] [place] [address] Care Team Providers Care Assistant Director Name Role Phone Caitlyn Bowie MD Primary Care Provider +1- [phone] Encounter Details Date Type Department Care Team (Late st Contact Info) Description 10/23/2024 Scanned Document INTERFACE DEFAULT [address] [place] [address] System, Provider Not In Social History Tobacco [...] [facility] 240 [facility] Building [address] [place], [place] [phone] Ronald Mills MD [address] [place] [address] [address] [place] [address] documented as of this [...] as of this encounter Care Teams Assistant Director Relationship Specialty Start Date End Date Caitlyn Bowie MD [address] [address] PCP - General Internal Medicine 05/06/21 documented as of this encounter
--- OUTSIDE RECORDS SUMMARY | 2024-11-03 14:40 | XMS_ITS | Encounter Summary ---
Author Organization [facility] Address [address] [place] [address] Care Team Providers Care Lan Administrator Name Role Phone Caitlyn Bowie MD Primary Care Provider +1- [phone] Encounter Details Date Type Department Care Team (Late st Contact Info) Description 07/27/2016 Scanned Document Thoracic Oncology Program at [address] [address] Suzy Kong MD [address] [place] [phone] Social History Tobacco Use Types Packs/Day [...] 4:00 PM EDT Telemedicine Cancer Center at [address] [place], [place] [phone] Ronald Mills MD 240 [facility] Max [address] [place] [address] documented as of this encounter Visit Diagnoses Not on filedocumented in this encounter Additional Health Concerns Infection Onset Date Last Indicated Resolved Time COVID-19 03/05/2022 03/05/2022 03/15/2022 7:18 PM EDT documented as of this encounter Care Teams Lan Administrator Relationship Specialty Start Date End Date Caitlyn Bowie MD 3400 [facility] Max 1 [place] [address] PCP - General Internal Medicine 05/06/21 Henry Kelly MD Pulmonary Department 175 [facility], [address] [place] [address] Physician Pulmonary Disease 09/06/17 06/22/20 documented as of this encounter
--- OUTSIDE RECORDS SUMMARY | 2024-11-03 14:40 | XMS_ITS | Encounter Summary ---
Author Organization [facility] and [facility] Address [address] [place] [address] Care Team Providers Care Associate Financial Representative Name Role Phone Caitlyn Bowie MD Primary Care Provider +1- [phone] Encounter Details Date Type Department Care Team (Late st Contact Info) Description 07/27/2016 Scanned Document Thoracic Oncology Program at [address] [address] Suzy Kong MD [address] [place] [phone] Social History Tobacco Use Types Packs/Day [...] 4:00 PM EDT Telemedicine Cancer [facility] at [address] [place], [place] [phone] Ronald Mills MD [address] [facility] [address] [place] [address] documented as of this encounter Visit Diagnoses Not on filedocumented in this encounter Additional Health Concerns Infection Onset Date Last Indicated Resolved Time COVID-19 03/05/2022 03/05/2022 03/15/2022 7:18 PM EDT documented as of this encounter Care Teams Associate Financial Representative Relationship Specialty Start Date End Date Caitlyn Bowie MD [address] [facility] [address] [place] [address] PCP - General Internal Medicine 05/06/21 Henry Kelly MD Pulmonary Department [address] [facility], [address] [place] [address] Physician Pulmonary Disease 09/06/17 06/22/20 documented as of this encounter
--- OUTSIDE RECORDS SUMMARY | 2024-11-03 14:40 | XMS_ITS | Encounter Summary ---
Author Organization [facility] and [facility] Address [address] [place] [phone] Care Team Providers Care Seasonal Recruiter Name Role Phone Caitlyn Bowie MD Primary Care Provider +1- [phone] Encounter Details Date Type Department Care Team (Late st Contact Info) Description 06/17/2016 Scanned Document [facility] Health Information Management [address] [place] [phone] External, Provider Social History Tobacco Use Types [...] at [facility] [address] [facility] [address] [place], [place] [id number] Ronald Mills MD [address] [facility] [address] [place] [address] documented as of this encounter Procedures Procedure Name Priority Date/Time Associated Diagnosis Comments XRAY RESULT SCAN Routine 06/17/2016 documented in this encounter Results * Xray Result Scan (06/17/2016) us Provider External IMG SCAN REPORTS Final Result [facility] [place], [place], [facility] documented in this encounter Visit Diagnoses Not on filedocumented in this encounter Additional Health Concerns Infection Onset Date Last Indicated Resolved Time COVID-19 03/05/2022 03/05/2022 03/15/2022 7:18 PM EDT documented as of this encounter Care Teams Seasonal Recruiter Relationship Specialty Start Date End Date Caitlyn Bowie MD [address] [facility] 1 [place] [address] PCP - General Internal Medicine 05/06/21 Henry Kelly MD Pulmonary Department [address] [place] [address], [address] [place] [address] Physician Pulmonary Disease 09/06/17 06/22/20 documented as of this encounter
--- OUTSIDE RECORDS SUMMARY | 2024-11-03 14:40 | XMS_ITS | Encounter Summary ---
Author Organization [facility] and [facility] Address [address] [place] [phone] Care Team Providers Care Extracorporeal Circulation Specialist Name Role Phone Caitlyn Bowie MD Primary Care Provider +1- [phone] Encounter Details Date Type Department Care Team (Late st Contact Info) Description 07/08/2016 Scanned Document [facility] Health Information Management [address] [place] [phone] External, Provider Social History Tobacco Use Types [...] [facility] Center at [facility] [address] [facility] [address] [place], [place] [phone] Ronald Mills MD [address] [facility] [address] [place] [address] documented as of this encounter Procedures Procedure Name Priority Date/Time Associated Diagnosis Comments LAB SCAN Routine 07/08/2016 documented in this encounter Results * Lab Scan (07/08/2016) Blood specimen (specimen) us Provider External LAB BLOOD ORDERABLES Final Res ult [facility] documented in this encounter Visit Diagnoses Not on filedocumented in this encounter Additional Health Concerns Infection Onset Date Last Indicated Resolved Time COVID-19 03/05/2022 03/05/2022 03/15/2022 7:18 PM EDT documented as of this encounter Care Teams Extracorporeal Circulation Specialist Relationship Specialty Start Date End Date Caitlyn Bowie MD [address] [facility] 1 [place] [address] PCP - General Internal Medicine 05/06/21 Henry Kelly MD Pulmonary Department [address] [facility], [address] [place] [address] Physician Pulmonary Disease 09/06/17 06/22/20 documented as of this encounter
--- OUTSIDE RECORDS SUMMARY | 2024-11-03 14:40 | XMS_ITS | Encounter Summary ---
Author Organization [facility] and [facility] Address [address] [place] [phone] Care Team Providers Care Market Master Name Role Phone Caitlyn Bowei MD Primary Care Provider +1- [phone] Encounter Details Date Type Department Care Team (Late st Contact Info) Description 06/17/2016 Scanned Document [facility] Health Information Management [address] [place] [address] External, Provider Social History Tobacco Use Types [...] [facility] [address] [facility] [address] [place], [place] [phone] Ronald Mills MD [address] [facility] [address] [place] [address] documented as of this encounter Visit Diagnoses Not on filedocumented in this encounter Additional Health Concerns Infection Onset Date Last Indicated Resolved Time COVID-19 03/05/2022 03/05/2022 03/15/2022 7:18 PM EDT documented as of this encounter Care Teams Market Master Relationship Specialty Start Date End Date Caitlyn Bowie MD [address] [facility] 1 [place] [address] PCP - General Internal Medicine 05/06/21 Henry Kelly MD Pulmonary Department [address] [facility], [address] [place] [address] Physician Pulmonary Disease 09/06/17 06/22/20 documented as of this encounter
[2024-11-03 15:11] LABS: MANUAL DIFF FLAG NO
[2024-11-03 15:17] LABS: Basophils Absolute Auto 0.1 X10*3/uL (0.0-0.2); Basophils Percent Auto 0.5 % (0-2); Eosinophils Absolute Auto 0.1 X10*3/uL (0.0-0.4); Eosinophils Percent Auto 0.4 % (0-4); Hematocrit 40.1 % (37.0-47.0); Hemoglobin 13.4 g/dl (12.0-16.0); Imm Gran Abs Auto 0.11 X10*3/uL (0.00-0.03); Imm Gran Pct Auto 0.7 % (0.0-0.4); Lymphocytes Absolute Auto 0.9 X10*3/uL (1.2-4.9); Mean Corpuscular HGB Conc 33.4 g/dl (31.0-35.0); Mean Corpuscular Hemoglobin 33.7 pg (27.0-33.0); Mean Corpuscular Volume 100.8 fL (80.0-98.0); Mean Platelet Volume 11.1 fL (9.4-12.3); Monocytes Absolute Auto 1.4 X10*3/uL (0.1-1.2); Monocytes Percent Auto 9.3 % (2-11); Neutrophils Absolute Auto 12.5 x10*3/uL (2.0-8.3); Neutrophils Percent Auto 83.1 % (45-73); Platelet Count 247 X10*3/uL (160-400); Red Blood Count 3.98 X10*6/uL (4.20-5.50)
[2024-11-03 15:34] LABS: Alanine Aminotransferase 42 U/L (0-31); Albumin Level 4.1 g/dL (3.5-5.0); Anion Gap 18 (12-20); Aspartate Amino Transferase 44 U/L (5-31); Blood Urea Nitrogen 13 mg/dL (9-16); Carbon Dioxide 30 mmol/L (22-29); Chloride 93 mmol/L (96-108); Creatinine Clr Calc Pharmacy 48.6; Estimated Glomerular Filt Rate > 60; Glucose Random 95 mg/dL (60-115); Lipase 18 U/L (8-78); Potassium 3.3 mmol/L (3.3-5.1); Sodium 138 mmol/L (135-145)
[2024-11-03 16:22] LABS: Alkaline Phosphatase 98 U/L (39-117)
[2024-11-03 16:54] LABS: INTERNATIONAL NORM RATIO 2.7 (0.9-1.1); Prothrombin Time 31.2 SEC (10.9-12.4)
--- NOTE | 2024-11-03 17:13 | PC.NURSE ---
patient given water as requested
--- NOTE | 2024-11-03 17:21 | PC.NURSE ---
patient requesting ambulance ride home, has her home o2 with her
--- NOTE | 2024-11-03 17:23 | PC.NURSE ---
patient ambulated to bathroom with steady gait not wearing oxygen
[2024-11-03 17:31] VITALS: BP 135/65; PULSE 79; RESP 16; TEMP 37; O2SAT 100
--- NOTE | 2024-11-03 17:32 | PC.NURSE ---
this RN was notified that patient was upset that provider was discharging her, stated that she felt like a sera case . patient then became upset with this RN after she was told the provider was not going to order valium for her at this time. provider at bedside to help patient with discharge instructions and further education. patient stated she was going to try and call her sister for a ride since she did not want to wait for ambulance and she has her own oxygen tank with her.
--- NOTE | 2024-11-03 17:41 | PC.NURSE ---
patient accepted dc paperwork states her sister is picking her up.
--- NOTE | 2024-11-03 17:58 | PC.NURSE ---
patient ambulated off of unit with steady gait wearing home o2
== END 2024-11-03 17:58 | disposition home or self-care (01) ==
PROVIDERS: Physician Assistant; Emergency Provider Emergency Medicine; PCP Internal Medicine
DX: K57.32 Diverticulitis of large intestine without perforation or abscess without bleeding (principal); R10.9 Unspecified abdominal pain; J44.9 Chronic obstructive pulmonary disease, unspecified; Z99.81 Dependence on supplemental oxygen; D50.9 Iron deficiency anemia, unspecified; D68.51 Activated protein C resistance; I25.10 Atherosclerotic heart disease of native coronary artery without angina pectoris; I27.20 Pulmonary hypertension, unspecified; I50.9 Heart failure, unspecified; Z79.01 Long term (current) use of anticoagulants; Z79.899 Other long term (current) drug therapy
CPT/HCPCS: 36415; 74176; 80053; 83605; 83690; 85025; 85610; 93005; 99284

== ENCOUNTER → 2024-11-03 14:19 | Outpatient (BNV) | payer MEDICARE, SELFPAY | PROVIDERS: Emergency Provider Emergency Medicine; PCP Internal Medicine; Visit Provider Radiology Diagnostic Radiology | DX: K57.32 Diverticulitis of large intestine without perforation or abscess without bleeding (principal); J90 Pleural effusion, not elsewhere classified; I31.39 Other pericardial effusion (noninflammatory) | CPT/HCPCS: 74176 ==

== ENCOUNTER → 2024-11-03 14:23 | Outpatient (BNV) | payer MEDICARE, SELFPAY | PROVIDERS: Emergency Provider Emergency Medicine; PCP Internal Medicine; Visit Provider Internal Medicine Cardiovascular Disease | DX: I45.2 Bifascicular block (principal) | CPT/HCPCS: 93010 ==

== ENCOUNTER 2024-11-04 15:00 | Outpatient (AMB) | payer MEDICARE, SELFPAY ==
--- NOTE | 2024-11-04 15:15 | A.OFFVIS_ITS ---
Vital Signs 11/04/24 15:16 Height 5 ft 3 in Weight 126 lb 12.253 oz BMI 22.5 BP 96/58 L Blood Pressure Location Rt brachial Position Sitting Pulse 85 Pulse Source Pulse Oximeter Pulse Oximetry (%) 99 Oxygen Delivery Method Nasal Cannula Oxygen Flow Rate 2 Intake Visit Reasons: COPD Allergies morphine Allergy (Severe, Verified 11/04/24 15:20) Itching avocado [AVOCADO] Allergy (Mild, Verified 11/04/24 15:20) ITCHY THROAT, RASH azithromycin [AZITHROMYCIN] Allergy (Mild, Verified 11/04/24 15:20) ITCHY THROAT, RASH barium iodide [BARIUM IODIDE] Allergy (Mild, Verified 11/04/24 15:20) ITCHY THROAT, RASH barium sulfate Allergy (Mild, Verified 11/04/24 15:20) Itch bee pollen [BEE STINGS] Allergy (Mild, Verified 11/04/24 15:20) ITCHY THROAT, RASH ciprofloxacin [From CIPRO] Allergy (Mild, Verified 11/04/24 15:20) ITCHY THROAT, RASH clarithromycin [From BIAXIN] Allergy (Mild, Verified 11/04/24 15:20) ITCHY THROAT, RASH diatrizoate meglumine [From GASTROGRAFIN] Allergy (Mild, Verified 11/04/24 15:20) ITCHY THROAT, RASH diatrizoate sodium [From GASTROGRAFIN] Allergy (Mild, Verified 11/04/24 15:20) ITCHY THROAT, RASH diclofenac [From VOLTAREN] Allergy (Mild, Verified 11/04/24 15:20) ITCHY THROAT, RASH erythromycin base [ERYTHROMYCIN BASE] Allergy (Mild, Verified 11/04/24 15:20) ITCHY THROAT, RASH gentamicin [GENTAMICIN] Allergy (Mild, Verified 11/04/24 15:20) ITCHY THROAT, RASH Iodinated Contrast Media [IVP DYE] Allergy (Mild, Verified 11/04/24 15:20) ITCHY THROAT, RASH levofloxacin [From LEVAQUIN] Allergy (Mild, Verified 11/04/24 15:20) ITCHY THROAT, RASH metronidazole [From FLAGYL] Allergy (Mild, Verified 11/04/24 15:20) ITCHY THROAT, RASH moxifloxacin [From AVELOX] Allergy (Mild, Verified 11/04/24 15:20) ITCHY THROAT, RASH Penicillins [PENICILLINS] Allergy (Mild, Verified 11/04/24 15:20) ITCHY THROAT, RASH shrimp [SHRIMP] Allergy (Mild, Verified 11/04/24 15:20) ITCHY THROAT, RASH Sulfa (Sulfonamide Antibiotics) [SULFA (SULFONAMIDE ANTIBIOTICS)] Allergy (Mild, Verified 11/04/24 15:20) ITCHY THROAT, RASH vancomycin [VANCOMYCIN] Allergy (Mild, Verified 11/04/24 15:20) ITCHY THROAT, RASH clindamycin Adverse Reaction (Intermediate, Verified 11/04/24 15:20) Unknown HPI Comments Details: The patient is a 79 y/o woman with a complicated history which includes: COPD, KANDY, pulmonary HTN, history pulmonary emboli on chronic anticoagulation, lung CA Stage IIIA s/o neoadjuvant chemoradiation and Left upper lobe lobectomy. She did have a CT scan today that I personally reviewed. Has not been personally read by the radiologist. Based on my reading she has some pulmonary nodules some that are new 4 mm in the right major fissure area. Other nodules are stable. Other post operative and pulmonary fibrotic changes stable. The patient should get a CT scan in 6 months. Also to note, she did not tolerate the Incruse nor budesonide. Will consider Daliresp. She was admitted to [facility] with diverticulitis. She was placed on IV antibiotics but she left against medical advice because she did not like the antibiotic options. In the meantime she was having some issues with coughing up some blood. She is also concerned because on her visit to [facility] she did have a CT scan of the chest and she was told that she had significant scarring of her lungs in addition to lung volume loss. I have not looked at the CT scan back in reassured her that she has had this radiation fibrosis for long time and volume loss due to the scarring was present before. We did review her perfusion scan demonstrating no defects to suggest any blood clots. Interestingly in the quantitative study the patient did have 81% of the blood flow going to her right lung and 18% going to the left. This is likely due to her previous surgery and also radiation changes. 03/21/2024 the patient is here for pulmonary follow-up visit. She has multiple complaints. She is entirely seems any physicians. She is still dealing with the wound getting plenty of wound care 4. Still getting debrided. In addition to that she has had a productive cough. The phlegm is now clear but thick difficult to expectorate. Sometimes feel like it is dripping for nasal passages down like a postnasal drip. The patient is currently on cefpodoxime. She is finishing a course. We did try to get sputum in the office but she was not able to do so. I did give her a cup in order for her to be doing her own time. We will be able to look for both Gram stain culture and also AFB. The patient also had a chest x-ray which I personally reviewed and also compared to her previous x-rays. It appears that she has worsening left-sided pleural effusion. Hard to know that is long as very affected on that side there is any active disease otherwise. She has not had a CT scan since October. In view of the worsening chest x-ray in the ongoing symptoms will go ahead and request a CT scan time. The patient also could try some Mucomyst. I will send some to the pharmacy to see if we can get it. She understands that is hard to get. When she gets she can use it twice a day for CPT to see if this helps clear the secretions that gets that within her airways. In addition to that the patient has been using the BiPAP. The BiPAP therapy has been affecting beneficial. She does use it for more than 4 hours a night. However, she does have a component of hypercarbia and she would do better with the noninvasive ventilator. Currently she is set up for sleep study at [facility] coming up. Hopefully they can do a split study and try titrate her figure out what her best form of therapy it is. At some point though if she continues on the BiPAP will need to replace it because his older than 5 years. 05/09/2024 the patient is here for a pulmonary follow-up visit. Overall she is doing well from a respiratory status. She recently did have a CT scan of the chest that at [facility]. I did personally reviewed. Appears to be stable. She does have the chronic effusion in the parenchymal disease. This is all stable. She does have a small compression fracture though. Has significant osteopenia. She did have blood work with her odd jobs day worker recently. Her antiphospholipid antibodies and anticardiolipin antibodies continue antiphospholipid antibody elevated. Her homocystine that was also elevated. She is going to start folic acid. She is concerned because her D-dimer was significantly elevated. Although she did have trauma to the legs. She had lower extremity Dopplers which were negative for any clots which is reassuring. Previous he Q scans have been reassuring. Will go ahead and repeat her blood test to see make sure that the D-dimer is coming down. If the D-dimer continues to be elevated then will do additional testing for potential occult clots. She continues on the Coumadin with a goal level 1.5-2. I do believe that she should stay on it based on the fact that she has significant symptoms and coming off the medicine may result in more security of the results specially since the Coumadin has been working for her chronic thromboembolic disease. From the wound standpoint the patient is doing better from the wound healing on her right lower extremity although she recently had another the trauma to the left. She is also dealing with a boil or a growth on the perineal area. She is going to be seeing blow mold operator for that. 08/08/2024 the patient is here for a pulmonary follow-up visit. Overall she is doing okay. She does have issues with her balance and also issues with dysuria. The patient has been also having issues with her oxygen that was at nighttime. She has been noticing worsening hypoxia. She has been using her BiPAP 16/10. She does use it with her oxygen. The patient did have a download recently and her AHI is up to 10 cm. She also had a blood gas demonstrating elevations in her CO2. Therefore, will go ahead and increase her BiPAP settings from 16-10 to 18/12. This BiPAP is about 6 years old now. The patient likely needs a replacement. Will go ahead and refer her to sleep in [place] in order for her to undergo a split study in order to get her a new PAP therapy. During the titration study component will be helpful to see if she is better off with AVAPS versus BiPAP. We did try her underlying AVAP but she could not tolerate it. She followed she did not have enough teaching. Therefore, will go ahead and increase the pressures of her BiPAP monitor her AHI and recheck a venous gas while we wait for her to see a certified sleep specialist in [place]. In the meantime she continues with her diuresis. Will go ahead and check a blood work. The patient also had a CT scan of the chest back in 03/29/2024 demonstrating no acute disease just a chronic changes. Will plan to talk about any additional imaging during her next visit. She will continue with current respiratory regimen for now. 09/11/2024 the patient is here for hospital follow-up visit. Apparently she was in the ER with worsening shortness of breath and cough. She was at [facility]. There she did have blood work. Her brain atretic peptide was significantly elevated at 100. She also did have a CT scan of the chest which I personally reviewed. She does have just chronic findings which include her radiation fibrosis decreased lung volume on the left along with the small pleural effusion on the left with the heart shifted Leftward as well volume loss. She was diagnosed with bronchitis and the patient was discharged. We did review further blood work and her sedimentation rate has been climbing slowly now at 51. in addition to that she does have a history of positive CLARA and now she is complaining of some pleuritic chest discomfort bringing up the question of underlying connective tissue disease resulting in some pleuritis. In addition to that she has been feeling episodes of increased heart rate and shortness of breath. I suspect that is likely a pulmonary vascular component. Her last echocardiogram demonstrating moderate degree of pulmonary hypertension. Unfortunately, she did not tolerate pulmonary vasodilators because if the significant amount of increase in the volume to the left ventricle then ultimately resulting in congestive heart failure. Therefore hold off on that. The patient is also anxious. She is not sleeping well. She feels that she is going to fall asleep and not wake up. She is willing to try small dose of Ambien. This will help her fall asleep and I explained to her that is not going to suppress her respiratory drive. We also did look at her blood gas that she had initially when she showed up and she had a severe case of respiratory alkalosis and she was able to breathe down her pCO2 down to 24 which is pretty significant. In addition to that she is willing to try small dose of Plaquenil to treat her for underlying pleuritis and pain and see if this can provide some relief as we repeat her blood work. She will be following up with Hematology. 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 I did print out the blood work so she can talk to her odd jobs day worker in the meantime will go ahead and repeat her blood work as well. She continues to be on high dose of diuretics. Volume status seems to be better at this time. She continues use the oxygen with good effect. Sometimes her oxygen drops because of her cardiopulmonary disease. She does not have much pulmonary reserve. In with the pulmonary hypertension along with diastolic dysfunction this quit quickly result in hypoxia. She can take breaks though when she is sitting as lungs are oxygens above 90%. 11/04/2024 the patient is here for a pulmonary follow-up visit. Since we last spoke she started developing abdominal pain. She did go to the ER where she was diagnosed with diverticulitis based on a CAT scan showing fat stranding close to the areas of diverticulosis in the left descending colon. The patient was not given any antibiotics because of all her allergies. She then followed up with the GI doctor called and it was recommended that she go back to the ER. She has not started any therapy for this. She has been feeling a little dehydrated from the lack of p.o. intake as she is doing significant amount of bowel rest. She has tolerated cephalosporins in the past. I will go ahead and send her Vantin to the pharmacy that she can use. She has also tolerated ceftriaxone in the hospital that has also been helpful for her. She does not tolerate clindamycin anymore and unfortunately she does not call tolerate the Flagyl either so we can not provide her with any anaerobic coverage. Still though Vantin has a broad spectrum coverage and should help. If her symptoms worsen though she should definitely go to the ER specially she is getting dehydrated or for abdominal comfort is worse or if she started developing fevers or chills or any other concerning symptoms. As far as her sleep apnea the patient did undergo a sleep study. This was done in [place]. It was recommended that based on her sleep apnea noted on his study that she start CPAP therapy. I did not see that they checked the end-tidal CO2 but at this point I think is reasonable for her to start CPAP on 2 L of oxygen and if she does not tolerate that if she fails CPAP we can quickly switch over to BiPAP anyway. Will go ahead and request a replacement APAP through [employer]. And therefore she can get her supplies as well. If she has a machine prior to her next appointment she can always bring it in so we can review with her. From a respiratory status she is okay she is using her oxygen with good effect. The patient continues on the Lasix as well she is taking 160 mg daily total. Because of her significant weight loss decreased p.o. intake I did have her only take half the dose for couple days in order for her to read a [place] very and then go back to the full dose when she is able to take by mouth. [facility] Medical History Chronic hypercapnic respiratory failure KANDY treated with BiPAP COPD (chronic obstructive pulmonary disease) Open wound Warfarin anticoagulation Complex sleep apnea syndrome Leg pain Anemia Tachycardia DVT (deep venous thrombosis) Compression fracture of body of thoracic vertebra ASD (atrial septal defect) Pleuritic chest pain History of COVID-19 Chronic anticoagulation Hypothyroidism GERD (gastroesophageal reflux disease) Hyperlipidemia Hypertension Factor 5 Leiden mutation, heterozygous History of non-ST elevation myocardial infarction (NSTEMI) Hypoxia Anxiety PTSD (post-traumatic stress disorder) Hemoptysis Dyspnea Tracheobronchitis CLARA positive Diverticulitis Allergic bronchitis (HFpEF) heart failure with preserved ejection fraction Subarachnoid bleed Insomnia Anti-phospholipid antibody syndrome Hypogammaglobulinemia Chronic respiratory failure Arterial insufficiency of lower extremity Complex regional pain syndrome i of right lower limb Post herpetic neuralgia Pulmonary hypertension Pericardial effusion Pulmonary emboli Pleural effusion Radiation fibrosis of lung Pneumonitis Pulmonary nodules Lung cancer Surgical History History of colonoscopy History of lung surgery History of tonsillectomy History of hysterectomy S/P mitral valve clip implantation History of cardiac cath Family History Sister No problems noted. Mother Cardiovascular disease Daughter Tachycardia Other KANDY (obstructive sleep apnea) Social History Household Members: Other Housing: [facility] Do you presently have visiting nurse or other home services: Yes (at home had FIRST MATE that came to visit her) Unable to assess alcohol history related to: Unknown Alcohol intake: former Comment: stand by assist with ambulation Patient Tobacco Use Status: Never used Tobacco Second Hand Smoke Exposure: No Advance Directives Date on File: 06/15/22 service: No Current occupational status: retired Review of Systems Const Denies chills, Reports daytime sleepiness, Reports difficulty sleeping, Denies fever(s), Denies frequent falls, Denies weakness, Denies weight gain and Denies weight loss Eyes Denies change in vision ENT Denies change in voice and Denies dizziness Card Reports chest pain, Denies leg edema, Denies lightheadedness, Denies palpitations, Denies dyspnea, Reports dyspnea on exertion, Denies orthopnea and Denies other (loss of consciousness) Resp Reports cough, Reports pain on inspiration, Reports pain with cough, Denies dyspnea and Reports dyspnea on exertion GI Reports abdominal pain, Denies hematochezia, Reports change in stool character and Reports GI cramping Musc Reports as per HPI and Reports muscle weakness Skin/Breast Reports change in pigmentation, Reports skin swelling and Reports unusual bruising Neuro Denies dizziness, Denies frequent falls and Denies weakness Psych Reports depression Endo Denies palpitations Physical Exam Vital Signs: Last Vital Signs Pulse 85 11/04/24 15:16 BP 96/58 L 11/04/24 15:16 Pulse Ox 99 11/04/24 15:16 Oxygen Delivery Method Nasal Cannula 11/04/24 15:16 Oxygen Flow Rate 2 11/04/24 15:16 BMI result Body Mass Index 22.5 Last Vital Signs Temp 97.7 F 06/20/22 08:00 Pulse 90 06/20/22 08:00 Resp 16 06/20/22 08:00 BP 137/60 06/20/22 08:00 Pulse Ox 93 06/20/22 08:00 O2 Del Method 06/20/22 08:00 O2 Flow Rate 2 06/20/22 08:00 FiO2 45 06/14/22 11:07 BMI result Body Mass Index 23.0 Const General: cooperative, comfortable, alert and awake Orientation/consciousness: patient oriented x3 HEENT Head: Yes atraumatic Eyes General: appearance normal, both eyes and all related structures Neck Neck: Yes trachea midline, Yes supple and Yes no JVD Chest Chest palpation & inspection: tenderness rib (right side) Resp Effort & Inspection: normal respiratory effort, no cough and No prolonged expiratory phase Auscultation: no rales, no rhonchi, no wheezes and diminished lung sounds Cardio Rate: regular rate Rhythm: regular rhythm Heart sounds: S1 normal heart sound present and S2 normal heart sound present GI Palpation (GI): Soft to palpation and Tenderness to palpation present (GI) in the LLQ Auscultation: normal bowel sounds Skin General skin exam: purpura and scars Neuro General: patient oriented x3 and no focal motor deficits Extrem Right lower extremity: edema Assessment & Plan Assessment & Plan (1) COPD (chronic obstructive pulmonary disease): Code(s): J44.9 - Chronic obstructive pulmonary disease, unspecified Category: Medical Qualifiers: COPD type: chronic bronchitis Chronic bronchitis type: simple Qualified Code(s): J41.0 - Simple chronic bronchitis (2) Chronic hypercapnic respiratory failure: Code(s): J96.12 - Chronic respiratory failure with hypercapnia Category: Medical (3) Complex sleep apnea syndrome: Code(s): G47.31 - Primary central sleep apnea Category: Medical (4) Pulmonary hypertension: Comment: severe based on RHC, moderate based on recent echo Code(s): I27.20 - Pulmonary hypertension, unspecified Category: Medical (5) Pulmonary nodules: Code(s): R91.8 - Other nonspecific abnormal finding of lung field Category: Medical (6) Chronic respiratory failure: Code(s): J96.10 - Chronic respiratory failure, unspecified whether with hypoxia or hypercapnia Category: Medical Qualifiers: Respiratory failure complication: hypoxia and hypercapnia Qualified Code(s): J96.11 - Chronic respiratory failure with hypoxia; J96.12 - Chronic respiratory failure with hypercapnia (7) KANDY treated with BiPAP: Comment: BIPAP 16/9 to 16/8 to 16/10->(AHI 10) increased to 18/12. Will request a BIPAP/ivap titration study. She would like to have her study in [place] where she had a good experience in the past. We will look into ordering a replacement PAP therapy after she has completed her titration study Code(s): G47.33 - Obstructive sleep apnea (adult) (pediatric) Category: Medical (8) Radiation fibrosis of lung: Code(s): J70.1 - Chronic and other pulmonary manifestations due to radiation Category: Medical (9) (HFpEF) heart failure with preserved ejection fraction: Code(s): I50.30 - Unspecified diastolic (congestive) heart failure Category: Medical Qualifiers: Heart failure chronicity: chronic Qualified Code(s): I50.32 - Chronic diastolic (congestive) heart failure (10) Lung cancer: Code(s): C34.90 - Malignant neoplasm of unspecified part of unspecified bronchus or lung Category: Medical Qualifiers: Laterality: left Lung location: upper lobe of lung Qualified Code(s): C34.12 - Malignant neoplasm of upper lobe, left bronchus or lung (11) Pleural effusion: Code(s): J90 - Pleural effusion, not elsewhere classified Category: Medical Plan start Vantin BID Will need to go to the ED if her symptoms worsen prednisone 2.5 mg QOD Ambien for sleep Trial Plaquenil continue Advair ASHA as needed continue ASHA (xopenex) as needed CPT with acapella valve fluticasone Oxygen 2L/pulse with activity and sleep. POC Inogen G5 duiresis as tolerated Requesting APAP with 2 L oxygen with [facility]. If she fails APAP, then, we will request a BIPAP F/U 2-3 weeks Medications: New cefpodoxime must administer with a meal/food 200 mg PO BID 28 tabs 0RF 14 days Coding Level of Care Code Est Pt Level 5 (63983) Complex EM visit Add On G2211 Diagnoses Simple chronic bronchitis J41.0 COPD type: chronic bronchitis Chronic bronchitis type: simple Chronic hypercapnic respiratory failure J96.12 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 Pulmonary hypertension I27.20 Pulmonary nodules R91.8 Chronic respiratory failure with hypoxia and hypercapnia J96.11; J96.12 Respiratory failure complication: hypoxia and hypercapnia KANDY treated with BiPAP G47.33 Radiation fibrosis of lung J70.1 Chronic heart failure with preserved ejection fraction I50.32 Heart failure chronicity: chronic Malignant neoplasm of upper lobe of left lung C34.12 Laterality: left Lung location: upper lobe of lung Pleural effusion J90 Time Spent (min) 45
[2024-11-04 15:16] VITALS: BP 96/58; PULSE 85; O2SAT 99; BMI 22.5
--- OUTSIDE RECORDS SUMMARY | 2024-11-04 17:49 | XMS_ITS | Encounter Summary ---
Author Organization [facility] Address [address] [place] [id number] Care Team Providers Care Exchange Architect Name Role Phone Caitlyn Bowie MD Primary Care Provider [phone]- [phone] Encounter Details Date Type Department Care Team (Late st Contact Info) Description 02/20/2017 Scanned Document [facility] Health Information Management [address] [place] [id number] External, Provider Social History Tobacco Use Types [...] [facility] [address] [place], [place] [id number] Ronald Mills MD [address] [facility] [address] [place] [address] documented as of this encounter [...] as of this encounter Care Teams Exchange Architect Relationship Specialty Start Date End Date Caitlyn Bowie MD [address] [facility] [address] [place] [address] PCP - General Internal Medicine 05/06/21 Henry Kelly MD Pulmonary Department [address] [place] [address] Physician Pulmonary Disease 09/06/17 06/22/20 documented as of this encounter
--- OUTSIDE RECORDS SUMMARY | 2024-11-04 17:49 | XMS_ITS | Encounter Summary ---
Author Organization [facility] Address [address] [place] [address] Care Team Providers Care Asbestos Textile Supervisor Name Role Phone Caitlyn Bowei MD Primary Care Provider +1- [phone] Encounter Details Date Type Department Care Team (Late st Contact Info) Description 12/16/2016 Scanned Document [facility] Health Information Management [address] [place] [address] External, Provider Social History Tobacco Use Types [...] [facility] at [facility] 240 [facility] [address] [place], [place] [phone] Ronald Mills MD 240 [facility] Max [address] [place] [address] documented as of [...] documented as of this encounter Care Teams Asbestos Textile Supervisor Relationship Specialty Start Date End Date Caitlyn Bowie MD 3400 [facility] 1 [place] [address] PCP - General Internal Medicine 05/06/21 Henry Kelly MD Pulmonary Department 175 [facility], [address] [place] [address] Physician Pulmonary Disease 09/06/17 06/22/20 documented as of this encounter
--- OUTSIDE RECORDS SUMMARY | 2024-11-04 17:49 | XMS_ITS | Encounter Summary ---
Author Organization [facility] and [facility] Address [address] [place] [address] Care Team Providers Care Appliance Repair Technician Name Role Phone Caitlyn Bowie MD Primary Care Provider +1- [phone] Encounter Details Date Type Department Care Team (Late st Contact Info) Description 10/31/2024 1:00 PM EDT Office Visit [facility] at [address] [address] Ronald Mills MD [address] [place] [address] Hypokalemia (Primary Dx); VTE (venous thromboembolism); [...] cough, thenafterwards, on 09/09/24, she saw her roping machine tender, Dr. Henry Kelly, in follow-up, who thought [...] change in the left perihilar region, a zrqsh-[id number] left pleural effusion, mild scattered atelectatic/fibrotic changes in the right lung, cardiomegaly, and a small pericardial effusion (09/09/24). A couple weeks after that, she had a left lower extremity Doppler ultrasound that showed no deep vein thrombosis (09/27/24). About two weeks ago, she felt pain and pressure in her chest while driving and noticed that her heart rate was 112. [facility] went to [facility], where her troponin-I levels were 14.5 ng/L [...] potassium 2.9, ALT 29, AST 32, alkaline [id number], total bilirubin 0.4, albumin 3.9, and total [...] lung volume loss and fluid overload; her roping machine tender, Dr. Henry Kelly, wondered if there might [...] she saw Dr. Simone House in the [place] [facility] at [place] and loved him, then later Dr. Jamar Che. I wondered if it might be worth her seeing a different pulmonary hypertension specialist at [place] for a reassessment of her pulmonary hypertension perhaps via a cardiopulmonary exercise test. I will otherwise see her again in 6 months. ------- Ronald Mills M.D., Ph.D. [phone] CC: Dr. Caitlyn Bowie; Dr. Henry Kelly; [...] [facility] 240 [facility] Building [address] [place], [place] [address] Ronald Mills MD [address] [place] [address] [address]1 [place] [address] documented as of this encounter [...] documented as of this encounter Care Teams Appliance Repair Technician Relationship Specialty Start Date End Date Caitlyn Bowie MD [address] [address] PCP - General Internal Medicine 05/06/21 documented as of this encounter
--- OUTSIDE RECORDS SUMMARY | 2024-11-04 17:49 | XMS_ITS | Encounter Summary ---
Author Organization [facility] and [facility] Address 20 [place] [address] Care Team Providers Care Framing Manager Name Role Phone Caitlyn Bowie MD Primary Care Provider +1- [phone] Encounter Details Date Type Department Care Team (Late st Contact Info) Description 09/07/2020 Scanned Document Cardiovascular Medicine at [address] [place] [id number] Norma Renee MD [address] [place] [phone] Social History Tobacco Use Types Packs/Day Years [...] 4:00 PM EDT Telemedicine Cancer Center at [address] [place] [address] Ronald Mills MD [address] [place] [address] [address] [place] [address] documented as of this encounter Visit Diagnoses Not on filedocumented in this encounter Additional Health Concerns Infection Onset Date Last Indicated Resolved Time COVID-19 03/05/2022 03/05/2022 03/15/2022 7:18 PM EDT Assessment Noted Time PHQ-9 Depression Total Score: 2 11/07/19 19 2:06 PM EDT documented as of this encounter Care Teams Framing Manager Relationship Specialty Start Date End Date Caitlyn Bowie MD [address] [address] PCP - General Internal Medicine 05/06/21 documented as of this encounter
--- OUTSIDE RECORDS SUMMARY | 2024-11-04 17:49 | XMS_ITS | Encounter Summary ---
Author Organization [facility] and [facility] Address [address] [place] [address] Care Team Providers Care Power System Engineer Name Role Phone Caitlyn Bowie MD Primary Care Provider +1- [phone] Encounter Details Date Type Department Care Team (Late st Contact Info) Description 12/16/2016 Scanned Document [facility] Health Information Management [address] [place] [phone] External, Provider Social History Tobacco Use Types [...] [facility] Building [address] [place], [place] [id number] Ronald Mills MD 240 [facility] Max [address] [place] [address] documented as of this encounter [...] as of this encounter Care Teams Power System Engineer Relationship Specialty Start Date End Date Caitlyn Bowie MD 3400 [facility] 1 [place] [address] PCP - General Internal Medicine 05/06/21 Henry Kelly MD Pulmonary Department 175 [facility], [address] [place] [address] Physician Pulmonary Disease 09/06/17 06/22/20 documented as of this encounter
--- OUTSIDE RECORDS SUMMARY | 2024-11-04 17:49 | XMS_ITS | Encounter Summary ---
Author Organization [facility] Address [address] [place] [address] Care Team Providers Care Arcgis Developer Name Role Phone Caitlyn Bowie MD Primary Care Provider +1- [phone] Encounter Details Date Type Department Care Team (Late st Contact Info) Description 04/18/2013 Documentation Hematology Program at [address] [address] Isis Ragland RN Social History Tobacco Use [...] Center at [facility] 240 [facility] Building [address] [place], [place] [id number] Ronald Mills MD 240 [facility] A1 [place] [address] documented as of this encounter Visit Diagnoses Not on filedocumented in this encounter Additional Health Concerns Infection Onset Date Last Indicated Resolved Time COVID-19 03/05/2022 03/05/2022 03/15/2022 7:18 PM EDT documented as of this encounter Care Teams Arcgis Developer Relationship Specialty Start Date End Date Caitlyn Bowie MD 3400 [facility] 1 [place] [address] PCP - General Internal Medicine 05/06/21 Henry Kelly MD Pulmonary Department 175 [facility], [address] [place] [address] Physician Pulmonary Disease 09/06/17 06/22/20 documented as of this encounter
--- OUTSIDE RECORDS SUMMARY | 2024-11-04 17:49 | XMS_ITS | Encounter Summary ---
Author Organization [facility] Address [address] [place] [address] Care Team Providers Care Bi Technical Lead Name Role Phone Caitlyn Bowie MD Primary Care Provider +1- [phone] Encounter Details Date Type Department Care Team (Late st Contact Info) Description 09/15/2020 Scanned Document INTERFACE DEFAULT [address] [place] [address] System, Provider Not In Social History Tobacco [...] at [facility] [place] 240 [facility] Building [address] [place] [address] Ronald Mills MD [address] [place] [address] [address] [place] [address] documented as of this encounter [...] End Date Caitlyn Bowie MD [address] [address] PCP - General Internal Medicine 05/06/21 documented as of this encounter
--- OUTSIDE RECORDS SUMMARY | 2024-11-04 17:49 | XMS_ITS | Encounter Summary ---
Author Organization [facility] and [facility] Address 20 [place] [address] Care Team Providers Care Tissue Coordinator Name Role Phone Caitlyn Bowie MD Primary Care Provider +1- [phone] Encounter Details Date Type Department Care Team (Late st Contact Info) Description 05/19/2020 Scanned Document Cancer Center at [address] [address] External, Provider Social History Tobacco Use Types [...] [facility] Building [address] [place], [place] [phone] Ronald Mills MD [address] [place] [address] [address] [place] [address] documented as of this encounter [...] documented as of this encounter Care Teams Tissue Coordinator Relationship Specialty Start Date End Date Caitlyn Bowie MD 3400 [facility] 1 [place] [address] PCP - General Internal Medicine 05/06/21 Henry Kelly MD Pulmonary Department 175 [facility], [address] [place] [address] Physician Pulmonary Disease 09/06/17 06/22/20 documented as of this encounter
--- OUTSIDE RECORDS SUMMARY | 2024-11-04 17:49 | XMS_ITS | Encounter Summary ---
Author Organization [facility] and [facility] Address [address] [place] [address] Care Team Providers Care Hot Stone Setter Name Role Phone Caitlyn Bowie MD Primary Care Provider +1- [phone] Encounter Details Date Type Department Care Team (Late st Contact Info) Description 09/16/2020 Scanned Document [facility] Health Information Management [address] [place] [address] External, Provider Social History Tobacco Use Types [...] at [facility] 240 [facility] Building [address] [place], [place] [phone] Ronald Mills MD [address] [place] [address] [address] [place] [phone] documented as of this encounter Procedures Procedure [...] as of this encounter Care Teams Hot Stone Setter Relationship Specialty Start Date End Date Caitlyn Bowie MD [address] [address] PCP - General Internal Medicine 05/06/21 documented as of this encounter
--- OUTSIDE RECORDS SUMMARY | 2024-11-04 17:49 | XMS_ITS | Encounter Summary ---
Author Organization [facility] Address 20 [place] [address] Care Team Providers Care Silver Cleaner Name Role Phone Caitlyn Bowie MD Primary Care Provider +1- [phone] Encounter Details Date Type Department Care Team (Late st Contact Info) Description 05/14/2020 Documentation Hematology Program at [address] [address] Taya Nuno RN Social History Tobacco Use [...] 4:00 PM EDT Telemedicine Cancer Center at [address] [place] [address] Ronald Mills MD [address] [place] [address] documented as of this encounter Visit Diagnoses Not on filedocumented in this encounter Additional Health Concerns Infection Onset Date Last Indicated Resolved Time COVID-19 03/05/2022 03/05/2022 03/15/2022 7:18 PM EDT Assessment Noted Time PHQ-9 Depression Total Score: 2 11/07/19 19 2:06 PM EDT documented as of this encounter Care Teams Silver Cleaner Relationship Specialty Start Date End Date Caitlyn Bowie MD 3400 [facility] Max 1 [place] [address] PCP - General Internal Medicine 05/06/21 Henry Kelly MD Pulmonary Department 175 [facility], [address] [place] [address] Physician Pulmonary Disease 09/06/17 06/22/20 documented as of this encounter
--- OUTSIDE RECORDS SUMMARY | 2024-11-04 17:49 | XMS_ITS | Encounter Summary ---
Author Organization [facility] and [facility] Address [address] [place] [address] Care Team Providers Care Through Freight Engineer Name Role Phone Caitlyn Bowie MD Primary Care Provider +1- [phone] Encounter Details Date Type Department Care Team (Late Contact Info) Description 09/09/2020 Scanned Document [facility] Health Information Management [address] [place] [address] External, Provider Social History Tobacco Use Types [...] Telemedicine Cancer Center at [facility] 240 [facility] Building [address] [place], [place] [phone] Ronald Mills MD [address] [place] [address] [address] [place] [address] documented as of this encounter [...] documented as of this encounter Care Teams Through Freight Engineer Relationship Specialty Start Date End Date Caitlyn Bowie MD [address] [address] PCP - General Internal Medicine 05/06/21 documented as of this encounter
--- OUTSIDE RECORDS SUMMARY | 2024-11-04 17:49 | XMS_ITS | Encounter Summary ---
Author Organization [facility] and [facility] Address [address] [place] [address] Care Team Providers Care Store Associate Name Role Phone Caitlyn Bowie MD Primary Care Provider +1- [phone] Encounter Details Date Type Department Care Team (Late Contact Info) Description 09/16/2020 Scanned Document [facility] Health Information Management [address] [place] [address] External, Provider Social History Tobacco Use Types [...] [facility] 240 [facility] Building [address] [place], [place] [phone] Ronald Mills MD [address] [place] [address] [address]1 [place] [address] documented as of this encounter [...] as of this encounter Care Teams Store Associate Relationship Specialty Start Date End Date Caitlyn Bowie MD [address] [address] PCP - General Internal Medicine 05/06/21 documented as of this encounter
--- OUTSIDE RECORDS SUMMARY | 2024-11-04 17:49 | XMS_ITS | Encounter Summary ---
Author Organization [facility] and [facility] Address [address] [place] [address] Care Team Providers Care Shuttle Fitting Supervisor Name Role Phone Caitlyn Bowie MD Primary Care Provider +1- [phone] Encounter Details Date Type Department Care Team (Late Contact Info) Description 09/18/2020 Scanned Document [facility] Health Information Management [address] [place] [address] External, Provider Social History Tobacco Use Types [...] [facility] at [facility] 240 [facility] Building [address] [place], [place] [phone] Ronald Mills MD [address] [place] [address] [address]1 [place] [address] documented as of this encounter [...] as of this encounter Care Teams Shuttle Fitting Supervisor Relationship Specialty Start Date End Date Caitlyn Bowie MD [address] [address] PCP - General Internal Medicine 05/06/21 documented as of this encounter
--- OUTSIDE RECORDS SUMMARY | 2024-11-04 17:49 | XMS_ITS | Encounter Summary ---
Author Organization [facility] and [facility] Address [address] [place] [address] Care Team Providers Care Structural Steel Painter Name Role Phone Caitlyn Bowie MD Primary Care Provider +1- [phone] Encounter Details Date Type Department Care Team (Late st Contact Info) Description 02/02/2017 Scanned Document [facility] Health Information Management [address] [place] [address] External, Provider Social History Tobacco Use Types [...] [facility] 240 [facility] Building [address] [place], [place] [phone] Ronald Mills MD 240 [facility] A1 [place] [address] documented as of this encounter Visit Diagnoses Not on filedocumented in this encounter Additional Health Concerns Infection Onset Date Last Indicated Resolved Time COVID-19 03/05/2022 03/05/2022 03/15/2022 7:18 PM EDT documented as of this encounter Care Teams Structural Steel Painter Relationship Specialty Start Date End Date Caitlyn Bowie MD 3400 [facility] 1 [place] [address] PCP - General Internal Medicine 05/06/21 Henry Kelly MD Pulmonary Department 175 [facility], [address] [place] [address] Physician Pulmonary Disease 09/06/17 06/22/20 documented as of this encounter
--- OUTSIDE RECORDS SUMMARY | 2024-11-04 17:49 | XMS_ITS | Encounter Summary ---
Author Organization [facility] Address [address] [place] [address] Care Team Providers Care Ve Teacher Name Role Phone Caitlyn Bowie MD Primary Care Provider +1- [phone] Encounter Details Date Type Department Care Team (Late st Contact Info) Description 12/16/2016 Scanned Document [facility] Health Information Management [address] [place] [address] External, Provider Social History Tobacco Use Types [...] at [facility] 240 [facility] Building [address] [place], [place] [id number] Ronald Mills MD 240 [facility] Max [address] [place] [address] documented as of this encounter [...] documented as of this encounter Care Teams Ve Teacher Relationship Specialty Start Date End Date Caitlyn Bowie MD 3400 [facility] 1 [place] [address] PCP - General Internal Medicine 05/06/21 Henry Kelly MD Pulmonary Department 175 [facility], [address] [place] [address] Physician Pulmonary Disease 09/06/17 06/22/20 documented as of this encounter
--- OUTSIDE RECORDS SUMMARY | 2024-11-04 17:49 | XMS_ITS | Encounter Summary ---
Author Organization [facility] Address [address] [place] [address] Care Team Providers Care Road Roller Engineer Name Role Phone Caitlyn Bowie MD Primary Care Provider +1- [phone] Encounter Details Date Type Department Care Team (Late st Contact Info) Description 09/17/2020 Scanned Document [facility] Health Information Management [address] [place] [address] External, Provider Social History Tobacco Use Types [...] [facility] 240 [facility] Building [address] [place], [place] [phone] Ronald Mills MD [address] [place] [address] [address] [place] [address] documented as of this encounter [...] End Date Caitlyn Bowie MD [address] [address] PCP - General Internal Medicine 05/06/21 documented as of this encounter
--- OUTSIDE RECORDS SUMMARY | 2024-11-04 17:49 | XMS_ITS | Encounter Summary ---
Author Organization [facility] Address [address] [place] [address] Care Team Providers Care Log Chipper Operator Name Role Phone Caitlyn Bowie MD Primary Care Provider +1- [phone] Encounter Details Date Type Department Care Team (Late st Contact Info) Description 07/08/2020 Scanned Document [facility] Health Information Management [address] [place] [address] External, Provider Social History Tobacco Use Types [...] at [facility] 240 [facility] Building [address] [place], [place] [address] Ronald Mills MD [address] [place] [address] [address]1 [place] [address] documented as of this encounter [...] as of this encounter Care Teams Log Chipper Operator Relationship Specialty Start Date End Date Caitlyn Bowie MD [address] [address] PCP - General Internal Medicine 05/06/21 documented as of this encounter
--- OUTSIDE RECORDS SUMMARY | 2024-11-04 17:49 | XMS_ITS | Clinical Summary ---
Author Organization [facility] Address [address] [place] [address] Care Team Providers Care Maint Mechanic Name Role Phone Brennan Burnett MD Primary Care Provider [phone] Allergies Active Allergy Reactions Criticality Noted Date [...] age to complete this topic Care Teams Maint Mechanic Relationship Specialty Start Date End Date Brennan Burnett MD [address] [place] [address] PCP - General Internal Medicine 07/06/20
--- OUTSIDE RECORDS SUMMARY | 2024-11-04 17:49 | XMS_ITS | Encounter Summary ---
Author Organization [facility] Address [address] [place] [address] Care Team Providers Care Marine Services Technician Name Role Phone Caitlyn Bowie MD Primary Care Provider +1- [phone] Encounter Details Date Type Department Care Team (Late st Contact Info) Description 12/16/2016 Scanned Document [facility] Health Information Management [address] [place] [address] External, Provider Social History Tobacco Use Types [...] [facility] 240 [facility] Building [address] [place], [place] [address] Ronald Mills MD 240 [facility] Max [address] [place] [address] documented as of this encounter [...] as of this encounter Care Teams Marine Services Technician Relationship Specialty Start Date End Date Caitlyn Bowie MD 3400 [facility] 1 [place] [address] PCP - General Internal Medicine 05/06/21 Henry Kelly MD Pulmonary Department 175 [facility], [address] [place] [address] Physician Pulmonary Disease 09/06/17 06/22/20 documented as of this encounter
--- OUTSIDE RECORDS SUMMARY | 2024-11-04 17:49 | XMS_ITS | Encounter Summary ---
Author Organization [facility] Address [address] [place] [address] Care Team Providers Care Technician Preventative Medicine Name Role Phone Caitlyn Bowie MD Primary Care Provider +1- [phone] Encounter Details Date Type Department Care Team (Late st Contact Info) Description 12/16/2016 Scanned Document [facility] Health Information Management [address] [place] [address] External, Provider Social History Tobacco Use Types [...] [facility] [place] Building [address] [place], [place] [id number] Roanld Mills MD 240 [facility] A1 [place] [address] documented as of this encounter Visit Diagnoses Not on filedocumented in this encounter Additional Health Concerns Infection Onset Date Last Indicated Resolved Time COVID-19 03/05/2022 03/05/2022 03/15/2022 7:18 PM EDT documented as of this encounter Care Teams Technician Preventative Medicine Relationship Specialty Start Date End Date Caitlyn Bowie MD 3400 [facility] 1 [place] [address] PCP - General Internal Medicine 05/06/21 Henry Kelly MD Pulmonary Department 175 [facility], [address] [place] [address] Physician Pulmonary Disease 09/06/17 06/22/20 documented as of this encounter
--- OUTSIDE RECORDS SUMMARY | 2024-11-04 17:49 | XMS_ITS | Encounter Summary ---
Author Organization [facility] and [facility] Address [address] [place] [address] Care Team Providers Care Corporate Accountant Name Role Phone Caitlyn Bowie MD Primary Care Provider +1- [phone] Encounter Details Date Type Department Care Team (Late Contact Info) Description 09/15/2020 Scanned Document [facility] Health Information Management [address] [place] [address] External, Provider Social History Tobacco Use Types [...] [facility] 240 [facility] Building [address] [place], [place] [phone] Ronald Mills MD [address] [place] [address] [address] [place] [address] documented as of this encounter [...] as of this encounter Care Teams Corporate Accountant Relationship Specialty Start Date End Date Caitlyn Bowie MD [address] [address] PCP - General Internal Medicine 05/06/21 documented as of this encounter
--- OUTSIDE RECORDS SUMMARY | 2024-11-04 17:49 | XMS_ITS | Encounter Summary ---
Author Organization [facility] and [facility] Address [address] [place] [address] Care Team Providers Care Psychotherapist Social Worker Name Role Phone Caitlyn Bowie MD Primary Care Provider +1- [phone] Encounter Details Date Type Department Care Team (Late st Contact Info) Description 12/19/2016 Scanned Document [facility] Health Information Management [address] [place] [address] External, Provider Social History Tobacco Use Types [...] [facility] Center at [facility] 240 [facility] [address] [place], [place] [phone] Ronald iMlls MD 240 [facility] Max [address] [place] [address] documented as of this encounter [...] documented as of this encounter Care Teams Psychotherapist Social Worker Relationship Specialty Start Date End Date Caitlyn Bowie MD [facility] 1 [place] [address] PCP - General Internal Medicine 05/06/21 Henry Kelly MD Pulmonary Department 175 [facility], [address] [place] [address] Physician Pulmonary Disease 09/06/17 06/22/20 documented as of this encounter
--- OUTSIDE RECORDS SUMMARY | 2024-11-04 17:49 | XMS_ITS | Encounter Summary ---
Author Organization [facility] and [facility] Address [address] [place] [address] Care Team Providers Care Director Automotive Name Role Phone Caitlyn Bowie MD Primary Care Provider +1- [phone] Encounter Details Date Type Department Care Team (Late st Contact Info) Description 02/20/2017 Scanned Document [facility] Health Information Management [address] [place] [address] External, Provider Social History Tobacco Use Types [...] [facility] 240 [facility] Building [address] [place], [place] [phone] Ronald Mills MD 240 [facility] Max [address] [place] [address] documented as of this encounter [...] as of this encounter Care Teams Director Automotive Relationship Specialty Start Date End Date Caitlyn Bowie MD 3400 [facility] 1 [place] [address] PCP - General Internal Medicine 05/06/21 Henry Kelly MD Pulmonary Department 175 [facility], [address] [place] [address] Physician Pulmonary Disease 09/06/17 06/22/20 documented as of this encounter
--- OUTSIDE RECORDS SUMMARY | 2024-11-04 17:49 | XMS_ITS | Encounter Summary ---
Author Organization [facility] and [facility] Address 20 [place] [address] Care Team Providers Care Card Maker Name Role Phone Caitlyn Bowie MD Primary Care Provider +1- [phone] Reason for Visit * Reason Onset Date Comments Appointment 10/31/2024 Encounter Details Date Type Department Care Team (Late st Contact Info) Description 10/31/2024 Telephone [facility] at [address] [address] Ronald Mills MD [address] [place] [address] Appointment Social History Tobacco Use Types [...] Raquel Rojas - 10/31/2024 2:23 PM EDT desk operator called in and stated wanted patient to schedule an appointment on 04/25 at 4 pm in person in [place]. Patient said that appointment is too late in day to come in person, would a telemed be ok? documented in this encounter Plan of Treatment Upcoming Encounters Date Type Department Care Team ([facility] st Contact Info) Description 04/25/2025 4:00 PM EDT Telemedicine Cancer [facility] at [facility] 240 [facility] Building [address] [place] [address] Ronald Mills MD 240 [facility] Max [address] [place] [address] documented as of this encounter Visit Diagnoses Not on filedocumented in this encounter Additional Health Concerns Assessment Noted Time PHQ-9 Depression Total Score: 2 11/07/19 19 2:06 PM EDT documented as of this encounter Care Teams Card Maker Relationship Specialty Start Date End Date Caitlyn Bowie MD [address] [address] PCP - General Internal Medicine 05/06/21 documented as of this encounter
--- OUTSIDE RECORDS SUMMARY | 2024-11-04 17:49 | XMS_ITS | Encounter Summary ---
Author Organization [facility] and [facility] Address 20 [place] [address] Care Team Providers Care Director Of Marketing Analytics Name Role Phone Caitlyn Bowie MD Primary Care Provider +1- [phone] Encounter Details Date Type Department Care Team (Late st Contact Info) Description 09/15/2020 Scanned Document Cancer Center at [address] [address] External, Provider Social History Tobacco Use Types [...] at [facility] 240 [facility] Building [address] [place], [place] [phone] Ronald Mills MD [address] [place] [address] [address] [place] [address] documented as of this encounter [...] of this encounter Care Teams Director Of Marketing Analytics Relationship Specialty Start Date End Date Caitlyn Bowie MD [address] [address] PCP - General Internal Medicine 05/06/21 documented as of this encounter
--- OUTSIDE RECORDS SUMMARY | 2024-11-04 17:49 | XMS_ITS | Encounter Summary ---
Author Organization [facility] and [facility] Address [address] [place] [address] Care Team Providers Care Career Advisor Name Role Phone Caitlyn Bowie MD Primary Care Provider +1- [phone] Encounter Details Date Type Department Care Team (Late st Contact Info) Description 12/16/2016 Scanned Document [facility] Health Information Management [address] [place] [address] External, Provider Social History Tobacco Use Types [...] [facility] 240 [facility] Building [address] [place], [place] [phone] Ronald Mills MD 240 [facility] A1 [place] [address] documented as of this encounter [...] as of this encounter Care Teams Career Advisor Relationship Specialty Start Date End Date Caitlyn Bowie MD [facility]0 [facility] 1 [place] [address] PCP - General Internal Medicine 05/06/21 Herny Kelly MD Pulmonary Department 175 [facility], [address] [place] [address] Physician Pulmonary Disease 09/06/17 06/22/20 documented as of this encounter
--- OUTSIDE RECORDS SUMMARY | 2024-11-04 17:49 | XMS_ITS | Encounter Summary ---
Author Organization [facility] Address [address] [place] [address] Care Team Providers Care Interstate Planner Name Role Phone Caitlyn Bowie MD Primary Care Provider +1- [phone] Encounter Details Date Type Department Care Team (Late st Contact Info) Description 12/16/2016 Scanned Document [facility] Health Information Management [address] [place] [address] External, Provider Social History Tobacco Use Types [...] [facility] 240 [facility] Building [address] [place], [place] [phone] Ronald Mills MD 240 [facility] Max [address] [place] [address] documented as of this encounter [...] documented as of this encounter Care Teams Interstate Planner Relationship Specialty Start Date End Date Caitlyn Bowie MD 3400 [facility] 1 [place] [address] PCP - General Internal Medicine 05/06/21 Henry Kelly MD Pulmonary Department 175 [facility], [address] [place] [address] Physician Pulmonary Disease 09/06/17 06/22/20 documented as of this encounter
--- OUTSIDE RECORDS SUMMARY | 2024-11-04 17:50 | XMS_ITS | Encounter Summary ---
Author Organization [facility] and [facility] Address [address] [place] [address] Care Team Providers Care Research Engineer Marine Equipment Name Role Phone Caitlyn Bowie MD Primary Care Provider +1- [phone] Encounter Details Date Type Department Care Team (Late st Contact Info) Description 06/27/2019 Scanned Document [facility]Oncology Program at [address] [place] [address] Norma Renee MD [address] [place] [address] 2 [place] [address] Social History Tobacco Use Types [...] PM EDT Telemedicine Cancer Center at [address] [place], [place] [phone] Ronald Mills MD 240 [facility] A1 [place] [address] documented as of this encounter Visit Diagnoses Not on filedocumented in this encounter Additional Health Concerns Infection Onset Date Last Indicated Resolved Time COVID-19 03/05/2022 03/05/2022 03/15/2022 7:18 PM EDT Assessment Noted Time PHQ-9 Depression Total Score: 2 11/07/19 19 2:06 PM EDT documented as of this encounter Care Teams Research Engineer Marine Equipment Relationship Specialty Start Date End Date Caitlyn Bowie MD 3400 [facility] 1 [place] [address] PCP - General Internal Medicine 05/06/21 Henry Kelly MD Pulmonary Department 175 [facility], [address] [place] [address] Physician Pulmonary Disease 09/06/17 06/22/20 documented as of this encounter
--- OUTSIDE RECORDS SUMMARY | 2024-11-04 17:50 | XMS_ITS | Encounter Summary ---
Author Organization [facility] and [facility] Address [address] [place] [address] Care Team Providers Care Superintendent Ammunition Storage Name Role Phone Caitlyn Bowie MD Primary Care Provider +1- [phone] Encounter Details Date Type Department Care Team (Late st Contact Info) Description 04/21/2021 Scanned Document INTERFACE DEFAULT [address] [place] [address] System, Provider Not In Social History Tobacco [...] Center at [facility] 240 [facility] Building [address] [place], [place] [phone] Ronald Mills MD [address] [place] [address] [address] [place] [address] documented as of this encounter [...] as of this encounter Care Teams Superintendent Ammunition Storage Relationship Specialty Start Date End Date Caitlyn Bowie MD [facility] [address] [address] PCP - General Internal Medicine 05/06/21 documented as of this encounter
--- OUTSIDE RECORDS SUMMARY | 2024-11-04 17:50 | XMS_ITS | Encounter Summary ---
Author Organization [facility] and [facility] Address [address] [place] [address] Care Team Providers Care Water Reclamation Systems Operator Name Role Phone Caitlyn Bowie MD Primary Care Provider +1- [phone] Encounter Details Date Type Department Care Team (Late st Contact Info) Description 04/11/2021 Scanned Document [facility] Health Information Management [address] [place] [address] External, Provider Social History Tobacco Use Types [...] [facility] [place] Building [address] [place], [place] [address] Ronald Mills MD [address] [place] [address] [address] [place] [address] documented as of this encounter Visit Diagnoses Not on filedocumented in this encounter Additional Health Concerns Infection Onset Date Last Indicated Resolved Time COVID-19 03/05/2022 03/05/2022 03/15/2022 7:18 PM EDT Assessment Noted Time PHQ-9 Depression Total Score: 2 11/07/19 19 2:06 PM EDT documented as of this encounter Care Teams Water Reclamation Systems Operator Relationship Specialty Start Date End Date Caitlyn Bowie MD [address] [address] PCP - General Internal Medicine 05/06/21 documented as of this encounter
--- OUTSIDE RECORDS SUMMARY | 2024-11-04 17:50 | XMS_ITS | Encounter Summary ---
Author Organization [facility] and [facility] Address [address] [place] [address] Care Team Providers Care Energy Conservation Director Name Role Phone Caitlyn Bowie MD Primary Care Provider +1- [phone] Encounter Details Date Type Department Care Team (Late st Contact Info) Description 03/01/2017 Scanned Document Onco-Oncology Program at [address] [place] [address] Norma Renee MD [address] [place] [address] 2 [place] [phone] Social History Tobacco Use Types Packs/Day Years [...] Telemedicine Cancer Center at [address] [place] [address] Ronald Mills MD 240 [facility] A1 [place] [address] documented as of this encounter Visit Diagnoses Not on filedocumented in this encounter Additional Health Concerns Infection Onset Date Last Indicated Resolved Time COVID-19 03/05/2022 03/05/2022 03/15/2022 7:18 PM EDT documented as of this encounter Care Teams Energy Conservation Director Relationship Specialty Start Date End Date Caitlyn Bowie MD 3400 [facility] Max 1 [place] [address] PCP - General Internal Medicine 05/06/21 Henry Kelly MD Pulmonary Department 175 [facility], [address] [place] [address] Physician Pulmonary Disease 09/06/17 06/22/20 documented as of this encounter
--- OUTSIDE RECORDS SUMMARY | 2024-11-04 17:50 | XMS_ITS | Encounter Summary ---
Author Organization [facility] and [facility] Address [address] [place] [address] Care Team Providers Care Assembler For Puller Over Hand Name Role Phone Caitlyn Bowie MD Primary Care Provider +1- [phone] Encounter Details Date Type Department Care Team (Late st Contact Info) Description 03/23/2021 Scanned Document INTERFACE DEFAULT [address] [place] [address] System, Provider Not In Social History Tobacco [...] [facility] 240 [facility] [address] [place] [address] Ronald Mills MD [address] [place] [address] [address] [place] [address] documented as of this encounter [...] as of this encounter Care Teams Assembler For Puller Over Hand Relationship Specialty Start Date End Date Caitlyn Bowie MD [address] [address] PCP - General Internal Medicine 05/06/21 documented as of this encounter
--- OUTSIDE RECORDS SUMMARY | 2024-11-04 17:50 | XMS_ITS | Encounter Summary ---
Author Organization [facility] Address [address] [place] [address] Care Team Providers Care Program Host Name Role Phone Caitlyn Bowie MD Primary Care Provider +1- [phone] Encounter Details Date Type Department Care Team (Late st Contact Info) Description 12/03/2019 Scanned Document [facility] Health Information Management [address] [place] [address] External, Provider Social History Tobacco Use Types [...] [facility] 240 [facility] Building [address] [place] [address] Ronald Mills MD [address] [place] [address] [address]1 [place] [address] documented as of this encounter Visit Diagnoses Not on filedocumented in this encounter Additional Health Concerns Infection Onset Date Last Indicated Resolved Time COVID-19 03/05/2022 03/05/2022 03/15/2022 7:18 PM EDT Assessment Noted Time PHQ-9 Depression Total Score: 2 11/07/19 19 2:06 PM EDT documented as of this encounter Care Teams Program Host Relationship Specialty Start Date End Date Caitlyn Bowie MD 3400 [facility] 1 [place] [address] PCP - General Internal Medicine 05/06/21 Henry Kelly MD Pulmonary Department 175 [facility], [address] [place] [address] Physician Pulmonary Disease 09/06/17 06/22/20 documented as of this encounter
--- OUTSIDE RECORDS SUMMARY | 2024-11-04 17:50 | XMS_ITS | Encounter Summary ---
Author Organization [facility] and [facility] Address [address] [place] [address] Care Team Providers Care Curriculum Assistant Principal Name Role Phone Caitlyn Bowie MD Primary Care Provider +1- [phone] Encounter Details Date Type Department Care Team (Late st Contact Info) Description 04/13/2021 Scanned Document INTERFACE DEFAULT [address] [place] [address] System, Provider Not In Social History Tobacco [...] Cancer Center at [facility] 240 [facility] Building [address] [place], [place] [address] Ronald Mills MD [address] [place] [address] [address] [place] [address] documented as of this encounter [...] End Date Caitlyn Bowie MD [address] [address] PCP - General Internal Medicine 05/06/21 documented as of this encounter
--- OUTSIDE RECORDS SUMMARY | 2024-11-04 17:50 | XMS_ITS | Encounter Summary ---
Author Organization [facility] and [facility] Address 20 [place] [address] Care Team Providers Care Contract Negotiation Specialist Name Role Phone Caitlyn Bowie MD Primary Care Provider +1- [phone] Encounter Details Date Type Department Care Team (Late st Contact Info) Description 04/26/2017 Scanned Document Cardiovascular Medicine at [address] [place] [address] Norma Renee MD [address] [place] [phone] Social History Tobacco Use Types Packs/Day Years [...] 4:00 PM EDT Telemedicine Cancer Center at [address] [place], [place] [phone] Ronald Mills MD [address] [place] [address] [address]1 [place] [address] documented as of this encounter Visit Diagnoses Not on filedocumented in this encounter Additional Health Concerns Infection Onset Date Last Indicated Resolved Time COVID-19 03/05/2022 03/05/2022 03/15/2022 7:18 PM EDT documented as of this encounter Care Teams Contract Negotiation Specialist Relationship Specialty Start Date End Date Caitlyn Bowie MD 3400 [facility] 1 [place] [address] PCP - General Internal Medicine 05/06/21 Henry Kelly MD Pulmonary Department 175 [facility], [address] [place] [address] Physician Pulmonary Disease 09/06/17 06/22/20 documented as of this encounter
--- OUTSIDE RECORDS SUMMARY | 2024-11-04 17:50 | XMS_ITS | Encounter Summary ---
Author Organization [facility] and [facility] Address 20 [place] [address] Care Team Providers Care High Pressure Firer Name Role Phone Caitlyn Bowie MD Primary Care Provider +1- [phone] Encounter Details Date Type Department Care Team (Late st Contact Info) Description 08/29/2019 Scanned Document Cancer Center at [address] [address] External, Provider Social History Tobacco Use Types [...] Telemedicine Cancer Center at [facility] 240 [facility] Building [address] [place], [place] [phone] Ronald Mills MD [address] [place] [address] [address]1 [place] [address] documented as of this encounter [...] as of this encounter Care Teams High Pressure Firer Relationship Specialty Start Date End Date Caitlyn Bowie MD 3400 [facility] 1 [place] [address] PCP - General Internal Medicine 05/06/21 Henry Kelly MD Pulmonary Department 175 [facility], [address] [place] [address] Physician Pulmonary Disease 09/06/17 06/22/20 documented as of this encounter
--- OUTSIDE RECORDS SUMMARY | 2024-11-04 17:50 | XMS_ITS | Encounter Summary ---
Author Organization [facility] and [facility] Address [address] [place] [address] Care Team Providers Care Bioinformatics Developer Name Role Phone Caitlyn Bowie MD Primary Care Provider +1- [phone] Encounter Details Date Type Department Care Team (Late st Contact Info) Description 02/21/2017 Scanned Document [facility] Health Information Management [address] [place] [address] External, Provider Social History Tobacco Use Types [...] at [facility] 240 [facility] Building [address] [place], [place] [phone] Ronald Mills MD 240 [facility] Max [address] [place] [address] documented as of this encounter [...] documented as of this encounter Care Teams Bioinformatics Developer Relationship Specialty Start Date End Date Caitlyn Bowie MD 3400 [facility] Max 1 [place] [address] PCP - General Internal Medicine 05/06/21 Henry Kelly MD Pulmonary Department 175 [facility], [address] [place] [address] Physician Pulmonary Disease 09/06/17 06/22/20 documented as of this encounter
--- OUTSIDE RECORDS SUMMARY | 2024-11-04 17:50 | XMS_ITS | Encounter Summary ---
Author Organization [facility] and [facility] Address [address] [place] [address] Care Team Providers Care Retail Field Supervisor Name Role Phone Caitlyn Bowie MD Primary Care Provider +1- [phone] Encounter Details Date Type Department Care Team (Late st Contact Info) Description 07/12/2019 Scanned Document Onco-Oncology Program at [address] [place] [address] Norma Renee MD [address] [place] [address] 2 [place] [address] Social History Tobacco Use Types [...] 4:00 PM EDT Telemedicine Cancer Center at [address] [place], [place] [phone] Ronald Mills MD 240 [facility] A1 [place] [address] documented as of this encounter Visit Diagnoses Not on filedocumented in this encounter Additional Health Concerns Infection Onset Date Last Indicated Resolved Time COVID-19 03/05/2022 03/05/2022 03/15/2022 7:18 PM EDT Assessment Noted Time PHQ-9 Depression Total Score: 2 11/07/19 19 2:06 PM EDT documented as of this encounter Care Teams Retail Field Supervisor Relationship Specialty Start Date End Date Caitlyn Bowie MD 3400 [facility] 1 [place] [address] PCP - General Internal Medicine 05/06/21 Henry Kelly MD Pulmonary Department 175 [facility], [address] [place] [address] Physician Pulmonary Disease 09/06/17 06/22/20 documented as of this encounter
--- OUTSIDE RECORDS SUMMARY | 2024-11-04 17:50 | XMS_ITS | Encounter Summary ---
Author Organization [facility] and [facility] Address [address] [place] [address] Care Team Providers Care Supervisor Grain [employer] Name Role Phone Caitlyn Bowie MD Primary Care Provider +1- [phone] Encounter Details Date Type Department Care Team (Late st Contact Info) Description 04/27/2017 Scanned Document [facility] Health Information Management [address] [place] [address] External, Provider Social History Tobacco Use Types [...] Cancer Center at [facility] [address] [facility] [address] [place], [place] [phone] Ronald Mills MD [address] [facility] [address] [place] [address] documented as of this encounter Visit Diagnoses Not on filedocumented in this encounter Additional Health Concerns Infection Onset Date Last Indicated Resolved Time COVID-19 03/05/2022 03/05/2022 03/15/2022 7:18 PM EDT documented as of this encounter Care Teams Supervisor [employer]rain [employer] Plants Relationship Specialty Start Date End Date Caitlyn Bowie MD 3400 [facility] 1 [place] [address] PCP - General Internal Medicine 05/06/21 Henry Kelly MD Pulmonary Department 175 [facility], [address] [place] [address] Physician Pulmonary Disease 09/06/17 06/22/20 documented as of this encounter
--- OUTSIDE RECORDS SUMMARY | 2024-11-04 17:50 | XMS_ITS | Encounter Summary ---
Author Organization [facility] and [facility] Address [address] [place] [address] Care Team Providers Care Senior Technical Analyst Name Role Phone Caitlyn Bowie MD Primary Care Provider +1- [phone] Encounter Details Date Type Department Care Team (Late st Contact Info) Description 06/27/2019 Scanned Document Onco-Oncology Program at [address] [place] [address] Norma Renee MD [address] [place] [address] 2 [place] [address] Social History Tobacco Use Types [...] PM EDT Telemedicine Cancer Center at [address] [place], [place] [address] Ronald Mills MD 240 [facility] A1 [place] [address] documented as of this encounter Visit Diagnoses Not on filedocumented in this encounter Additional Health Concerns Infection Onset Date Last Indicated Resolved Time COVID-19 03/05/2022 03/05/2022 03/15/2022 7:18 PM EDT Assessment Noted Time PHQ-9 Depression Total Score: 2 11/07/19 19 2:06 PM EDT documented as of this encounter Care Teams Senior Technical Analyst Relationship Specialty Start Date End Date Caitlyn Bowie MD 3400 [facility] 1 [place] [address] PCP - General Internal Medicine 05/06/21 Henry Kelly MD Pulmonary Department 175 [facility], [address] [place] [address] Physician Pulmonary Disease 09/06/17 06/22/20 documented as of this encounter
--- OUTSIDE RECORDS SUMMARY | 2024-11-04 17:50 | XMS_ITS | Patient Health Record ---
Author Organization [facility] Address [address] [facility] [address] [place] [address] Care Team Providers Care Orthopedics Teacher Name Role Phone EVELIN RAMSAY Primary Care Provider Yenny Hou Unavailable [phone] Allergies Allergen (clinical drug ingredient) Drug/Non Drug [...] UROBILINOGEN Neg BILIRUBIN Neg BLOOD Neg Urinalysis, Complete-[id number] Reviewed date:05/04/2024 11:35:42 PM Interpretation: Performing Lab:[facility], [address] [facility], [place], Phone - [phone], Director - Arely Notes/Report: Specific [place] 1.009 1.005-1.030 pH 6.5 5.0-7.5 Urine-Color Yellow [...] Bacteria None seen None seen/Few Urine Culture, Routine-[id number] Reviewed date:05/04/2024 11:35:22 PM Interpretation: Performing Lab:[facility], [address] [place] [address], Phone - [phone], Director - MDJoy Notes/Report: Urine Culture, Routine Final report Result 1 Culture shows less than 10,000 colony forming units of bacteria per milliliter of urine. This colony count is not generally considered to be clinically significant. PDF Report Reviewed date:05/04/2024 11:35:04 PM Interpretation: Performing Lab:[facility], [address] [place] [address], Phone - [phone], Director - MDBrenda Notes/Report: Urinalysis Reviewed date:07/09/2024 [...] Synthroid 25MCG 1 ORAL daily for -3 [facility] 06/10/2014 Active ZyrTEC Allergy 10MG 1 [...] 1 ORAL at bedtime fo r -3 [facility] 06/10/2014 Active Meclizine HCl 25 MG 1 tablet as needed Orally [facility] 06/10/2014 Active Albuterol Sulfate (2.5 MG/3ML)0.083% Inhalation 4 x a day prn 06/10/2014 Active Valium 5MG 1 tablet as needed O RAL at bedtime, 1/2 tab prn during the day [facility] 06/10/2014 Active Social History Tobacco Use: [...] Status Risk Notes Problem Postmenopausal atrophic vaginitis (10025999) Postmenopausal atrophic vaginitis (N95.2) Active confirmed Problem Age-related osteoporosis (924476831) Age-related osteoporosis without current pathological fracture (M81.0) Active confirmed Problem Urgent desire to urinate (11234039) Urgency of urination (R39.15) Active confirmed 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 Problem Chronic systolic heart failure (403355913) Chronic systolic (congestive) heart failure (I50.22) Active confirmed Problem Chronic obstructive pulmonary disease (47536199) Chronic obstructive pulmonary disease, unspecified (J44.9) Active confirmed Problem Functional urinary incontinence (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) Functional 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) Active confirmed Problem Personal history of primary malignant neoplasm of bronchus (586894652) 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) Active confirmed Vital Signs Temperature 97.7 degrees Fahrenheit 07/18/2024 Blood pressure diastolic 62 mm Hg 07/18/2024 Height 63 in 07/18/2024 Blood pressure systolic 102 mm Hg 07/18/2024 Weight 126 lbs 07/18/2024 BMI 22.32 kg/m2 07/18/2024 Encounters Encounter Location Date Provider Diagnosis Total [address] [address] 05/03/2024 Yenny Elizalde Urgency of urination R39.15 and Abscess of vulva N76.[address] [address] 05/10/2024 Yenny Elizalde Abscess of vulva N76 .[address] [address] 05/17/2024 Yenny Elizalde Abscess of vulva N76 .[address] [address] 07/09/2024 Yenny Elizalde Urgency of urination R39.15 ; Acute vaginitis N76.0 and Postmenopausal atrophic vaginitis N95.[address] [address] 07/18/2024 Yennydorothy Lovettva Encounter for screening mammogram for malignant neoplasm of breast Z12.31 and Mastodynia N64.[address] [address] 05/10/2024 Yenny Elizalde Total [address] [address] 05/13/2024 Yenny Elizalde Total [address] [place] [address] 06/11/2024 Yenny Roweueva Assessments Encounter Date Diagnosis [...] [facility] AND DISCUSSED THIS PAT. [...] Date MEDICARE [address] VEDA NIEVES [id number] CINDA WATSON Self - patient is the insured [employer] [address] [place] [address] [id number] CINDA WATSON Self - patient is [...]
--- OUTSIDE RECORDS SUMMARY | 2024-11-04 17:50 | XMS_ITS | Encounter Summary ---
Author Organization [facility] and [facility] Address [address] [place] [address] Care Team Providers Care Valve Inserter Name Role Phone Caitlyn Bowie MD Primary Care Provider +1- [phone] Encounter Details Date Type Department Care Team (Late st Contact Info) Description 04/11/2021 Scanned Document INTERFACE DEFAULT [address] [place] [address] System, Provider Not In Social History Tobacco [...] [facility] [address] [facility] [address] [place], [place] [id number] Ronald Mills MD [address] [place] [address] [address] [place] [address] documented as of this encounter [...] documented as of this encounter Care Teams Valve Inserter Relationship Specialty Start Date End Date Caitlyn Bowie MD [address] [address] PCP - General Internal Medicine 05/06/21 documented as of this encounter
--- OUTSIDE RECORDS SUMMARY | 2024-11-04 17:50 | XMS_ITS | Encounter Summary ---
Author Organization [facility] and [facility] Address 20 [place] [address] Care Team Providers Care Core Loader Name Role Phone Caitlyn Bowie MD Primary Care Provider +1- [phone] Encounter Details Date Type Department Care Team (Late st Contact Info) Description 11/26/2019 Scanned Document Cancer Center at [address] [address] External, Provider Social History Tobacco Use Types [...] – [facility] [address] [facility] [address] [place], [place] [phone] Ronald Mills MD [address] [place] [address] [address] [place] [address] documented as of this [...] as of this encounter Care Teams Core Loader Relationship Specialty Start Date End Date Caitlyn Bowie MD 3400 [facility] 1 [place] [address] PCP - General Internal Medicine 05/06/21 Henry Kelly MD Pulmonary Department 175 [facility], [address] [place] [address] Physician Pulmonary Disease 09/06/17 06/22/20 documented as of this encounter
--- OUTSIDE RECORDS SUMMARY | 2024-11-04 17:50 | XMS_ITS | Encounter Summary ---
Author Organization [facility] and [facility] Address [address] [place] [address] Care Team Providers Care Director Medical Science Name Role Phone Caitlyn Bowie MD Primary Care Provider +1- [phone] Encounter Details Date Type Department Care Team (Late st Contact Info) Description 06/27/2019 Scanned Document Onco-Oncology Program at [address] [place] [address] Norma Renee MD [address] [place] [address] 2 [place] [address] Social History Tobacco Use Types [...] 4:00 PM EDT Telemedicine Cancer Center at [address] [place], [place] [address] Ronald Mills MD 240 [facility] [address]1 [place] [address] documented as of this encounter Visit Diagnoses Not on filedocumented in this encounter Additional Health Concerns Infection Onset Date Last Indicated Resolved Time COVID-19 03/05/2022 03/05/2022 03/15/2022 7:18 PM EDT Assessment Noted Time PHQ-9 Depression Total Score: 2 11/07/19 19 2:06 PM EDT documented as of this encounter Care Teams Director Medical Science Relationship Specialty Start Date End Date Caitlyn Bowie MD 3400 [facility] 1 [place] [address] PCP - General Internal Medicine 05/06/21 Henry Kelly MD Pulmonary Department 175 [facility], [address] [place] [address] Physician Pulmonary Disease 09/06/17 06/22/20 documented as of this encounter
--- OUTSIDE RECORDS SUMMARY | 2024-11-04 17:50 | XMS_ITS | Encounter Summary ---
Author Organization [facility] and [facility] Address 20 [place] [address] Care Team Providers Care Primer Inspector Name Role Phone Caitlyn Bowie MD Primary Care Provider +1- [phone] Encounter Details Date Type Department Care Team (Late st Contact Info) Description 01/28/2013 Scanned Document Thoracic Oncology Program at [address] [address] Solo Henry MD [address] [place] [address] Social History Tobacco Use Types Packs/Day [...] Cancer Center at [facility] [address] [facility] [address] [place], [place] [address] Ronald Mills MD 240 [facility] Max [address] [place] [address] documented as of this encounter Visit Diagnoses Not on filedocumented in this encounter Additional Health Concerns Infection Onset Date Last Indicated Resolved Time COVID-19 03/05/2022 03/05/2022 03/15/2022 7:18 PM EDT documented as of this encounter Care Teams Primer Inspector Relationship Specialty Start Date End Date Caitlyn Bowie MD 3400 [facility] Max 1 [place] [address] PCP - General Internal Medicine 05/06/21 Henry Kelly MD Pulmonary Department 175 [facility], [address] [place] [address] Physician Pulmonary Disease 09/06/17 06/22/20 documented as of this encounter
--- OUTSIDE RECORDS SUMMARY | 2024-11-04 17:50 | XMS_ITS | Encounter Summary ---
Author Organization [facility] Address [address] [place] [address] Care Team Providers Care Orthophoto Tech/Draftsman Name Role Phone Caitlyn Bowie MD Primary Care Provider +1- [phone] Encounter Details Date Type Department Care Team (Late st Contact Info) Description 04/10/2021 Scanned Document INTERFACE DEFAULT [address] [place] [address] System, Provider Not In Social History Tobacco [...] [facility] 240 [facility] [address] [place] [address] Ronald Mills MD [address] [place] [address] [address] [place] [address] documented as of this encounter [...] documented as of this encounter Care Teams Orthophoto Tech/Draftsman Relationship Specialty Start Date End Date Caitlyn Bowie MD [address] [address] PCP - General Internal Medicine 05/06/21 documented as of this encounter
--- OUTSIDE RECORDS SUMMARY | 2024-11-04 17:50 | XMS_ITS | Encounter Summary ---
Author Organization [facility] and [facility] Address [address] [place] [address] Care Team Providers Care Lab Aide Name Role Phone Caitlyn Bowie MD Primary Care Provider +1- [phone] Encounter Details Date Type Department Care Team (Late st Contact Info) Description 04/16/2021 Scanned Document INTERFACE DEFAULT [address] [place] [address] System, Provider Not In Social History Tobacco [...] Cancer Center at [facility] 240 [facility] Building [address] [place], [place] [address] Ronald Mills MD [address] [place] [address] [address] [place] [address] documented as of this encounter [...] as of this encounter Care Teams Lab Aide Relationship Specialty Start Date End Date Caitlyn Bowie MD [facility] [address] [address] PCP - General Internal Medicine 05/06/21 documented as of this encounter
--- OUTSIDE RECORDS SUMMARY | 2024-11-04 17:50 | XMS_ITS | Encounter Summary ---
Author Organization [facility] and [facility] Address [address] [place] [address] Care Team Providers Care Knitting Machine Operator Name Role Phone Caitlyn Bowie MD Primary Care Provider +1- [phone] Encounter Details Date Type Department Care Team (Late st Contact Info) Description 03/24/2021 Scanned Document INTERFACE DEFAULT [address] [place] [address] System, Provider Not In Social History Tobacco [...] at [facility] 240 [facility] [address] [place] [address] Ronald Mills MD [address] [place] [address] [address]1 [place] [address] documented as of this encounter [...] End Date Caitlyn Bowie MD [address] [address] PCP - General Internal Medicine 05/06/21 documented as of this encounter
--- OUTSIDE RECORDS SUMMARY | 2024-11-04 17:50 | XMS_ITS | Encounter Summary ---
Author Organization [facility] Address [address] [place] [address] Care Team Providers Care Franchise Specialist Name Role Phone Caitlyn Bowie MD Primary Care Provider +1- [phone] Encounter Details Date Type Department Care Team (Late st Contact Info) Description 08/21/2017 Scanned Document [facility] Health Information Management [address] [place] [address] External, Provider Social History Tobacco Use Types [...] [facility] 240 [facility] [address] [place], [place] [address] Ronald Mills MD [address] [place] [address] [address]1 [place] [address] documented as of this encounter [...] documented as of this encounter Care Teams Franchise Specialist Relationship Specialty Start Date End Date Caitlyn Bowie MD 3400 [facility] 1 [place] [address] PCP - General Internal Medicine 05/06/21 Henry Kelly MD Pulmonary Department 175 [facility], [address] [place] [address] Physician Pulmonary Disease 09/06/17 06/22/20 documented as of this encounter
--- OUTSIDE RECORDS SUMMARY | 2024-11-04 17:50 | XMS_ITS | Encounter Summary ---
Author Organization [facility] and [facility] Address 20 [place] [address] Care Team Providers Care College Of Education Dean Name Role Phone Caitlyn Bowie MD Primary Care Provider +1- [phone] Encounter Details Date Type Department Care Team (Latest Contact Info) Description 04/15/2013 Transcribed Orders [facility] 800 [place] [address] Tian Atwood MD [address] [facility] 102 [place] [address] Unspecified hypothyroidism (Primary Dx) Social [...] [facility] 240 [facility] Building [address] [place] [address] Ronald Mills MD [address] [facility] [address] [place] [address] documented as of this encounter Results * Copper, serum total (YH) (04/15/2013 4:31 PM EDT) Copper, Serum Total SEE BELOW [facility] Comment: Test ?Result ? Flag ??Unit ?RefValue Copper, S ? 1.35 ? mcg/mL ??0.75-1.45 04/15/2013 4:31 PM EDT us Tian Atwood MD LAB BLOOD ORDERABLES Final R esult Performing Organization Address City/State/[facility] Co de Phone Number [facility] [address] [place] [address] documented in this encounter Visit Diagnoses Diagnosis Unspecified hypothyroidism- Primary documented in this encounter Additional Health Concerns Infection Onset Date Last Indicated Resolved Time COVID-19 03/05/2022 03/05/2022 03/15/2022 7:18 PM EDT documented as of this encounter Care Teams College Of Education Dean Relationship Specialty Start Date End Date Caitlyn Bowie MD 3400 [facility] 1 [place] [address] PCP - General Internal Medicine 05/06/21 Henry Kelly MD Pulmonary Department 175 [facility], [address] [place] [address] Physician Pulmonary Disease 09/06/17 06/22/20 documented as of this encounter
--- OUTSIDE RECORDS SUMMARY | 2024-11-04 17:50 | XMS_ITS | Clinical Summary ---
Author Organization [address] Address [address] [place] [address] Phone Care Team Providers Care Full Service Supervisor Name Role Phone Caitlyn Bowie MD Primary Care Provider +1- [phone] Allergies Active Allergy Reactions Criticality Noted Date [...] Exposed to tobacco smoke by family members [facility] [place] Bronchiectasis COPD (chronic obstructive pulmonary disease) Mildly restrictive lung disease Resolved Problems Problem Noted Date Diagnosed Date Resolved Date KANDY (obstructive sleep apnea) 11/21/2016 01/22/2018 Carotid stenosis, asymptomatic, right 09/18/2015 06/10/2016 Encounters Date Type Department Care Team Description 10/31/2024 1:00 PM EDT Office Visit Hematology Program at [address] [address] Ronald Mills MD Hypokalemia (Primary Dx); VTE (venous thromboembolism); Antiphospholipid antibody syndrome (HC Code); Elevated homocysteine; Abnormal gamma globulin level; Pulmonary hypertension (HC Code) 10/31/2024 Telephone Hematology Program at [address] [address] Ronald Mills MD Appointment 10/25/2024 Orders Only Cancer Center at [address] [place] [address] Taya Nuno RN Hypokalemia (Primary Dx) 10/25/2024 Telephone Hematology Program at [address] [address] Ronald Mills MD Other; Triage 10/23/2024 Scanned Document INTERFACE DEFAULT [address] [place] [address] System, Provider Not In 10/23/2024 Telephone Hematology Program at [address] [address] Marcus Valera MD Triage 10/23/2024 Orders Only Hematology Program at [address] [place] [address] Ronald Mills MD VTE (venous thromboembolism) (Primary Dx); Antiphospholipid antibody syndrome (HC Code); Elevated homocysteine; Abnormal gamma globulin level; Feeding difficulties, unspecified 10/23/2024 Telephone Cancer Center at [address] [place] [address] Ronald Mills MD Labs Only 10/22/2024 Telephone Hematology Program at [address] [address] Ronald Mills MD Other 10/18/2024 10:30 AM EDT Office Visit [facility] [address] [place] [phone] Alfredo Michaud Jr. PA KANDY (obstructive sleep apnea) (Primary Dx); Fatigue, unspecified type; Excessive daytime sleepiness; MCI (mild cognitive impairment) with memory loss 09/30/2024 Orders Only [facility] [address] [place] [phone] Adalgisa Whitney MD KANDY (obstructive sleep apnea) 09/30/2024 Orders Only [facility] [address] [place] [phone] Adalgisa Whitney MD KANDY (obstructive sleep apnea) (Primary Dx) 09/24/2024 Telephone Hematology Program at [address] [address] Ronald Mills MD Triage; Results 09/23/2024 Scanned Document INTERFACE DEFAULT [address] [place] [address] System, Provider Not In 09/15/2024 Scanned Document INTERFACE DEFAULT [address] [place] [address] System, Provider Not In 09/09/2024 Scanned Document INTERFACE DEFAULT [address] [place] [address] System, Provider Not In 08/30/2024 Abstract [facility] [address] [place] [phone] Adalgisa Whitney MD 08/08/2024 Scanned Document INTERFACE DEFAULT [address] [place] [address] System, Provider Not In from Last 3 [...] Telemedicine Cancer Center at [facility] [address] [place], [place] [address] Ronald Mills MD [address] [place] [address] Health [...] - 144 mmol/L 04/05/2022 1:43 PM EDT [facility] DEPARTMENT OF LABORATORY MEDICINE [facility] Potassium 4.7 3.3 - 5.3 mmol/L 04/05/2022 1:43 PM EDT [facility] DEPARTMENT OF LABORATORY MEDICINE [facility] Chloride 100 98 - 107 mmol/L 04/05/2022 1:43 PM EDT [facility] DEPARTMENT OF LABORATORY MEDICINE [facility] CO2 30 20 - 30 mmol/L 04/05/2022 1:43 PM EDT [facility] DEPARTMENT OF LABORATORY MEDICINE [facility] Anion Gap 8 7 - 17 04/05/2022 1:43 PM EDT [facility] DEPARTMENT OF LABORATORY MEDICINE [facility] Glucose 115(H) 70 - 100 mg/dL 04/05/2022 1:43 PM [facility] DEPARTMENT LABORATORY MEDICINE [facility] BUN 16 8 - 23 mg/dL 04/05/2022 1:43 PM [facility] Creatinine 0.89 0.40 - 1.30 mg/dL 04/05/2022 1:43 PM EDT [facility] Calcium 10.5(H) 8.8 - 10.2 mg/dL 04/05/2022 1:43 PM [facility] BUN/Creatinine Ratio 18.0 8.0 - 23.0 03/11 1:43 PM [facility] Total Protein 7.0 6.6 - 8.7 g/dL 04/05/2022 1:43 PM [facility] Albumin 4.2 3.6 - 4.9 g/dL 04/05/2022 1:43 PM [facility] Total Bilirubin 0.6 <=1.2 mg/dL 04/05/2022 1:43 PM [facility] Alkaline Phosphatase 58 9 - 122 U/L 04/05/2022 1:43 PM [facility] DEPARTMENT OF LABORATORY MEDICINE [facility] Alanine Aminotransferase (ALT) 19 10 - 35 U/L 04/05/2022 1:43 PM [facility] DEPARTMENT LABORATORY MEDICINE [facility] Comment:Calcium dobesilate c an cause artificially low ALT results at therapeutic concentrations Aspartate Aminotransferase (AST) 26 10 - 35 U/L 04/05/2022 1:43 PM [facility] DEPARTMENT LABORATORY MEDICINE [facility] Globulin 2.8 2.3 - 3.5 g/dL 04/05/2022 1:43 PM EDT [facility] DEPARTMENT OF LABORATORY MEDICINE [facility] A/G Ratio 1.5 1.0 - 2.2 04/05/2022 1:43 PM EDT [facility]ORAT[facility] AST/ALT Ratio 1.4 See Comment 04/05/2022 1:43 PM EDT [facility] Comment: Adult with mild elevations [...] 3m2 04/05/2022 1:43 PM EDT [facility] LABOR[facility]ORY MEDICINE [facility] Comment:Estimated glomerular filtration rate (eGFR) was [...] MD LAB BLOOD ORDERABLES Final Resul t [facility] [address] [place] [address] * Bone Density Result Scan (05/10/2017) us [...] MD LAB BLOOD ORDERABLES Fin al Result [facility] [address] [place] [address] * MAMMOGRAPHY REPORT (04/25/2013 6:47 AM EDT) 04/25/2013 6:47 AM EDT us Provider Not In System IMG SCAN REPORTS Final Re sult from Last 3 Months or Most Recently Relevant to Health Maintenance Insurance MEDICARE [facility] MEDICARE [facility] MEDICARE [facility] MEDICARE MEDICARE BCBS Advance Directives * Full ACLS (Latest Code Status on File) Date Activated Date Inactivated Comments 12/15/2018 7:13 PM 12/16/2018 6:09 PM * Full Interventions Date Activated Date Inactivated Comments 03/18/2016 6:34 PM 03/19/2016 6:40 PM Care Teams Full Service Supervisor Relationship Specialty Start Date End Date Caitlyn Bowie MD [address] [phone] PCP - General Internal Medicine 05/06/21
--- OUTSIDE RECORDS SUMMARY | 2024-11-04 17:50 | XMS_ITS | Encounter Summary ---
Author Organization [facility] and [facility] Address [address] [place] [address] Care Team Providers Care Editor Continuity And Script Name Role Phone Caitlyn Bowie MD Primary Care Provider +1- [phone] Encounter Details Date Type Department Care Team (Late st Contact Info) Description 07/26/2012 Abstract COUNTS INCLUDE 234 BEDS AT THE [facility] Health Information Management [address] [place] [address] [place], Primary Care [address] [place] [address] Social History Tobacco Use Types Packs/Day Years [...] 4:00 PM EDT Telemedicine Cancer Center at [address] [place], [place] [address] Ronald Mills MD [address] [place] [address] documented as of this encounter Visit Diagnoses Not on filedocumented in this encounter Additional Health Concerns Infection Onset Date Last Indicated Resolved Time COVID-19 03/05/2022 03/05/2022 03/15/2022 7:18 PM EDT documented as of this encounter Care Teams Editor Continuity And Script Relationship Specialty Start Date End Date Caitlyn Bowie MD 3400 [facility] 1 [place] [address] PCP - General Internal Medicine 05/06/21 Henry Kelly MD Pulmonary Department [address] [facility] [place] [address] Physician Pulmonary Disease 09/06/17 06/22/20 documented as of this encounter
--- OUTSIDE RECORDS SUMMARY | 2024-11-04 17:50 | XMS_ITS | Encounter Summary ---
Author Organization [facility] and [facility] Address [address] [place] [address] Care Team Providers Care Denture Laboratory Technician Name Role Phone Caitlyn Bowie MD Primary Care Provider +1- [phone] Encounter Details Date Type Department Care Team (Late st Contact Info) Description 08/16/2012 Abstract [facility] Health Information Management [address] [place] [address] [place], Primary Care [address] [place] [address] Social History Tobacco Use Types Packs/Day Years [...] PM EDT Telemedicine Cancer Center at [address] [place], [place] [phone] Ronald Mills MD 240 [facility] [address] [place] [address] documented as of this encounter Visit Diagnoses Not on filedocumented in this encounter Additional Health Concerns Infection Onset Date Last Indicated Resolved Time COVID-19 03/05/2022 03/05/2022 03/15/2022 7:18 PM EDT documented as of this encounter Care Teams Denture Laboratory Technician Relationship Specialty Start Date End Date Caitlyn Bowie MD 3400 [facility] 1 [place] [address] PCP - General Internal Medicine 05/06/21 Henry Kelly MD Pulmonary Department [address] [place] [address], [address] [place] [address] Physician Pulmonary Disease 09/06/17 06/22/20 documented as of this encounter
--- OUTSIDE RECORDS SUMMARY | 2024-11-04 17:50 | XMS_ITS | Encounter Summary ---
Author Organization [facility] and [facility] Address [address] [place] [phone] Care Team Providers Care Roll Over Loader Name Role Phone Caitlyn Bowie MD Primary Care Provider +1- [phone] Encounter Details Date Type Department Care Team (Late st Contact Info) Description 11/29/2019 Scanned Document [facility] Health Information Management [address] [place] [address] External, Provider Social History Tobacco Use Types [...] [facility] [address] [facility] [address] [place], [place] [phone] Ronald Mills MD [address] [place] [address] [address] [place] [address] documented as of this encounter [...] as of this encounter Care Teams Roll Over Loader Relationship Specialty Start Date End Date Caitlyn Bowie MD [address] [facility] 1 [place] [address] PCP - General Internal Medicine 05/06/21 Henry Kelly MD Pulmonary Department 175 [facility], [address] [place] [address] Physician Pulmonary Disease 09/06/17 06/22/20 documented as of this encounter
--- OUTSIDE RECORDS SUMMARY | 2024-11-04 17:50 | XMS_ITS | Encounter Summary ---
Author Organization [facility] and [facility] Address [address] [place] [address] Care Team Providers Care Alarm Adjuster Name Role Phone Caitlyn Bowie MD Primary Care Provider +1- [phone] Encounter Details Date Type Department Care Team (Late st Contact Info) Description 06/21/2012 Abstract Head & Neck Cancers Program at [address] [phone] Mikel Lloyd MD [address] [place] [phone] (Fax) Social History Tobacco Use Types Packs/Day [...] Services – [facility] [address] [facility] [address] [place] [address] Ronald Mills MD 240 [facility] [address] [place] [address] documented as of this encounter Visit Diagnoses Not on filedocumented in this encounter Additional Health Concerns Infection Onset Date Last Indicated Resolved Time COVID-19 03/05/2022 03/05/2022 03/15/2022 7:18 PM EDT documented as of this encounter Care Teams Alarm Adjuster Relationship Specialty Start Date End Date Caitlyn Bowie MD 3400 [facility] 1 [place] [address] PCP - General Internal Medicine 05/06/21 Henry Kelly MD Pulmonary Department [address] [place] [address], [address] [place] [address] Physician Pulmonary Disease 09/06/17 06/22/20 documented as of this encounter
--- OUTSIDE RECORDS SUMMARY | 2024-11-04 17:50 | XMS_ITS | Encounter Summary ---
Author Organization [facility] and [facility] Address [address] [place] [address] Care Team Providers Care Foundry Manager Name Role Phone Caitlyn Bowie MD Primary Care Provider +1- [phone] Encounter Details Date Type Department Care Team (Late st Contact Info) Description 01/22/2020 Scanned Document Lab for [facility] [address] [place] [address] Kerwin Menjivar MD 260 [facility] 3 [place] [address] Social History Tobacco Use Types [...] PM EDT Telemedicine Cancer Center at [address] [place] [address] Ronald Mills MD [address] [facility] [address] [place] [address] documented as of this encounter Visit Diagnoses Not on filedocumented in this encounter Additional Health Concerns Infection Onset Date Last Indicated Resolved Time COVID-19 03/05/2022 03/05/2022 03/15/2022 7:18 PM EDT Assessment Noted Time PHQ-9 Depression Total Score: 2 11/07/19 19 2:06 PM EDT documented as of this encounter Care Teams Foundry Manager Relationship Specialty Start Date End Date Caitlyn Bowie MD [address] [address] PCP - General Internal Medicine 05/06/21 Henry Kelly MD Pulmonary Department [address] [place] [address], [address] [place] [address] Physician Pulmonary Disease 09/06/17 06/22/20 documented as of this encounter
--- OUTSIDE RECORDS SUMMARY | 2024-11-04 17:50 | XMS_ITS | Encounter Summary ---
Author Organization [facility] and [facility] Address [address] [place] [address] Care Team Providers Care Forensic Social Worker Name Role Phone Caitlyn Bowie MD Primary Care Provider +1- [phone] Encounter Details Date Type Department Care Team (Late st Contact Info) Description 08/09/2017 Scanned Document Cardiovascular Medicine at [address] [place] [address] System, Provider Not In Social History Tobacco [...] Cancer Center at [facility] 240 [facility] [address] [place] [address] Ronald Mills MD 240 [facility] [address] [place] [address] documented as of this [...] as of this encounter Care Teams Forensic Social Worker Relationship Specialty Start Date End Date Caitlyn Bowie MD 3400 [facility] [address] 1 [place] [address] PCP - General Internal Medicine 05/06/21 Henry Kelly MD Pulmonary Department 175 [facility], [address] [place] [address] Physician Pulmonary Disease 09/06/17 06/22/20 documented as of this encounter
--- OUTSIDE RECORDS SUMMARY | 2024-11-04 17:50 | XMS_ITS | Encounter Summary ---
Author Organization [facility] and [facility] Address [address] [place] [address] Care Team Providers Care Associate Account Manager Name Role Phone Caitlyn Bowie MD Primary Care Provider +1- [phone] Encounter Details Date Type Department Care Team (Late st Contact Info) Description 04/22/2021 Scanned Document INTERFACE DEFAULT [address] [place] [address] System, Provider Not In Social History Tobacco [...] Cancer Center at [facility] 240 [facility] [address] [place], [place] [phone] Ronald Mills MD [address] [place] [address] [address] [place] [address] documented as of this encounter [...] as of this encounter Care Teams Associate Account Manager Relationship Specialty Start Date End Date Caitlyn Bowie MD [facility] [address] [address] PCP - General Internal Medicine 05/06/21 documented as of this encounter
--- OUTSIDE RECORDS SUMMARY | 2024-11-04 17:50 | XMS_ITS | Clinical Summary ---
Author Organization [facility] Address [address] [place] [address] Phone Care Team Providers Care Steel Handler Name Role Phone Brennan Burnett Primary Care Provider [phone] Allergies Active Allergy Reactions Criticality Noted Date [...] 20 mg as needed by her previous receiving barn custodian which she has taken sporadically. I have asked her to take this daily to see if this improves her symptoms and she has a follow-up appointment with Dr. Shah on September 16 which she will keep. We also had a long conversation regarding the fact that she is seeing 3 different receiving barn custodian for the same problems. We informed her [...] continues to see Dr. Avalos or her receiving barn custodian at [facility]. She verbalized understanding of this [...] right lower leg 03/06/2019 Antiphospholipid antibody syndrome ([facility] V24) 12/24/2018 Adrenal insufficiency ([facility] V24) 08/23/2018 Allergic rhinitis 08/23/2018 Hyperparathyroidism ([facility] V24) 08/23/2018 MRSA infection 08/23/2018 Overview (05/16/2024): 06/2009, s/p thoracotomy infection Osteoarthritis 08/23/2018 Radiation-induced pulmonary fibrosis ([facility] V2 4) 11/13/2017 Bronchiectasis ([facility] V24, [facility] V28) 2017 Leg edema 08/08/2017 Restrictive lung disease 08/08/2017 Chronic obstructive pulmonar y disease ([facility] V24, [facility] V28) 04/13/2017 Fibromyalgia 04/13/2017 Congestive heart failure ([facility] V24, [facility] V 28) 04/04/2017 Heterozygous factor V Leiden mutation ([facility] V 24) 04/04/2017 Obstructive sleep apnea syndrome 04/04/2017 Overview (05/16/2024): CPAP Pleural effusion 04/04/2017 Pulmonary hypertension ([facility], [facility] V28 ) 04/04/2017 Multiple pulmonary nodules 03/17/2017 [...] Encounters Date Type Department Care Team Description 11/04/2024 Telephone Gastroenterology - [facility] [address] [facility] [address] [place] [phone] Tim Gomes MD Provider Call Back 10/10/2024 1:00 PM EDT Office Visit [facility] [address] [place] [address] Ayanna Jaffe MD 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); Gait abnormality; Memory change; Anxiety; Blurry vision 10/09/2024 12:45 PM EDT Treatment [facility] Speech [facility] [address] [address] Daphne Alarcon, WIND PLANT MANAGER 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); Cognitive communication disorder; Unsp symptoms and signs w cognitive functions and awareness 10/09/2024 Plan of Care Documentation [facility] Speech [address] [phone] 08/26/2024 10:30 AM EST Telemedicine [address] [place] [address] Ayanna Jaffe MD Anxiety (Primary Dx); Memory change; Gait abnormality; White matter lesion of central nervous system 08/23/2024 1:20 PM EST Office Visit Gastroenterology - [address] [facility] 299 [facility] [address] [place] [phone] Saima Amor, ALUMINUM MOLDER Gastroesophageal reflux disease, unspecified whether esophagitis present (Primary Dx); Constipation, unspecified constipation type 08/19/[address] [phone] Daphne Alarcon, WIND PLANT MANAGER returning pt call 08/08/[address] [phone] Daphne Alarcon, WIND PLANT MANAGER Memory Loss (Returned pt call from 08/07 [...] PROCEDURE: HISTORICAL TONSILLECTOMY OTHER SURGICAL HISTORY PROCEDURE: NE RMVL LUNG XCP TOT PNEUMONECTOMY SLEEVE LOBECTOMY; [...] pathology report UPPER GASTROINTESTINAL ENDOSCOPY 05/03/2015 PROCEDURE: NE UPPER GI ENDOSCOPY PERFORMED MITRAL CLIP PROCEDURE Medical History Medical History Date Comments Akathisia 04/15/2013 DX:Akathisia Anxiety 12/07/2016 DX:Anxiety Bronchiectasis ([facility] V24, [facility] V28) 08/08/2017 DX:Bronchiectasis (HCC) Cataract 08/26/2014 DX:Cataract Chronic obstructive pulmonar y disease ([facility] V24, [facility] V28) 04/13/2017 DX:Chronic obstructive pulm onary disease (HCC) 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 DX:Complica cole migraine Congestive heart failure ( [facility] V24, [facility] V28) 04/04/2017 DX:Congestive heart failure (HCC) History of deep vein thrombosis 04/04/2017 DX:History of deep vein thrombosis Diverticulitis of sigmoid colon 12/15/2016 DX:Diverticulitis of sigmoid colon Elevated liver enzymes 09/23/2015 DX:Elevat ed liver enzymes Fibromyalgia 04/13/2017 DX:Fibromyalgia Gastroesophageal reflux disease 11/17/2016 DX:Gastroesophageal reflux disease Glaucoma suspect 08/26/2014 DX:Glaucoma dori pect Heterozygous factor V Leiden mutation ([facility] V24) 04/04/2017 DX:Heterozygous factor V Lei den [...] syndrome 02/18/2013 DX:Postc oncussion syndrome Pulmonary hypertension ([facility] V24, [facility] V28) 04/04/2017 DX:Pulmonary hypertension (H CC) Restrictive lung disease 08/08/2017 DX:Rest rictive lung disease 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 DX:Zinc deficien cy Obstructive sleep apnea syndrome 04/04/2017 DX:Obstructive sleep apnea syndrome; COMMENT: CPAP Radiation-induced pulmonary fibrosis ([facility] V24) 11/13/2017 DX:Radiation-induced pulmona ry fibrosis (HCC) Adrenal insufficiency ([facility] V24) 08/23/2018 DX:Adrenal insufficiency (HCC) Hyperparathyroidism ([facility] V24) 08/23/2018 DX:Hyperparathyroidism (HCC) Osteoporosis 11/17/2016 DX:Osteoporosis [...] Mx LLL resection, Chemo, RT, Cisplatin, Vinorelbine [id number] Antiphospholipid antibody sy ndrome ([facility] V24) 12/24/2018 DX:Antiphospholipid antibody syndrome (HCC) 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 Hyperparathyroidism ([facility] V24) DX:Hyperparathyroidism (HCC) Adrenal insufficiency ([facility] V24) DX:Adrenal insufficiency (HCC) Family History Medical [...] Description 12/10/2024 1:30 PM EDT Office Visit [facility] [address] [facility] [address] [place] [phone] Shirley Chaidez PA [address] [place] [address] 12/23/2024 9:00 AM EDT Office Visit Vascular Surgery - [place] [address] [place] [phone] Jerry Li MD [address] [place] [address] Health Maintenance Due Date Last Done Comments [...] 06/15/2024 2:10 PM [facility] Total Protein 6.4 6.0 - 8.0 g/dL LAB CHEMISTRY METHOD 06/15/2024 2:10 PM [facility] Albumin 3.3 3.2 - 5.0 g/dL LAB CHEMISTRY METHOD 06/15/2024 2:10 PM [facility] Total Bilirubin 0.4 0.0 - 1.4 mg/dL LAB CHEMISTRY METHOD 06/15/2024 2:10 PM [facility] Blood Venous blood specimen / Unknown Venipuncture / Unknown 06/15/2024 1:26 PM EST 06/15/2024 1:32 PM EST us Jovana Cruz MD LAB BLOOD ORDERABLES Final Resul t [facility] [address] [place] [address], from Last 3 Months or Most Recently Relevant to Health Maintenance Insurance MEDICARE [facility] Advance Directives Documents on File Type Date Recorded Patient Creative Lead Expl anation Health Care Decision (hx) 10/18/2013 [...] (hx) 10/04/2013 AD LACEY DIRECTIVE Care Teams Steel Handler Relationship Specialty Start Date End Date Brennan Burnett MD [address] [place] [address] [facility] - General 05/06/24
--- OUTSIDE RECORDS SUMMARY | 2024-11-04 17:50 | XMS_ITS | Encounter Summary ---
Author Organization [facility] and [facility] Address [address] [place] [address] Care Team Providers Care Name Plate Stamping Machine Operator Name Role Phone Caitlyn Bowie MD Primary Care Provider +1- [phone] Encounter Details Date Type Department Care Team (Late st Contact Info) Description 01/28/2013 Scanned Document Thoracic Oncology Program at [address] [address] Solo Henry MD [address] [place] [phone] Social History Tobacco Use Types Packs/Day [...] Center at [facility] 240 [facility] Building [address] [place], [place] [address] Ronald Mills MD 240 [facility] [address] [place] [address] documented as of this encounter Visit Diagnoses Not on filedocumented in this encounter Additional Health Concerns Infection Onset Date Last Indicated Resolved Time COVID-19 03/05/2022 03/05/2022 03/15/2022 7:18 PM EDT documented as of this encounter Care Teams Name Plate Stamping Machine Operator Relationship Specialty Start Date End Date Caitlyn Bowie MD [address] [facility] [address] [place] [address] PCP - General Internal Medicine 05/06/21 Henry Kelly MD Pulmonary Department 175 [facility], [address] [place] [address] Physician Pulmonary Disease 09/06/17 06/22/20 documented as of this encounter
--- OUTSIDE RECORDS SUMMARY | 2024-11-04 17:50 | XMS_ITS | Encounter Summary ---
Author Organization [facility] and [facility] Address [address] [place] [address] Care Team Providers Care Robot Designer Name Role Phone Caitlyn Bowie MD Primary Care Provider +1- [phone] Encounter Details Date Type Department Care Team (Late st Contact Info) Description 06/07/2017 Scanned Document [facility] Health Information Management [address] [place] [address] External, Provider Social History Tobacco Use Types [...] [facility] 240 [facility] Building [address] [place], [place] [phone] Ronald Mills MD [address] [place] [address] [address] [place] [address] documented as [...] documented as of this encounter Care Teams Robot Designer Relationship Specialty Start Date End Date Caitlyn Bowie MD 3400 [facility] 1 [place] [address] PCP - General Internal Medicine 05/06/21 Henry Kelly MD Pulmonary Department 175 [facility], [address] [place] [address] Physician Pulmonary Disease 09/06/17 06/22/20 documented as of this encounter
--- OUTSIDE RECORDS SUMMARY | 2024-11-04 17:50 | XMS_ITS | Encounter Summary ---
Author Organization [facility] Address [address] [place] [address] Care Team Providers Care Steamtable Attendant Railroad Name Role Phone Caitlyn Bowie MD Primary Care Provider +1- [phone] Encounter Details Date Type Department Care Team (Late st Contact Info) Description 03/22/2021 Scanned Document INTERFACE DEFAULT [address] [place] [address] System, Provider Not In Social History Tobacco [...] [facility] Center at [facility] 240 [facility] Building [address] [place] [address] Ronald Mills MD [address] [place] [address] [address] [place] [address] documented as of this encounter Visit Diagnoses Not on filedocumented in this encounter Additional Health Concerns Infection Onset Date Last Indicated Resolved Time COVID-19 03/05/2022 03/05/2022 03/15/2022 7:18 PM EDT Assessment Noted Time PHQ-9 Depression Total Score: 2 11/07/19 19 2:06 PM EDT documented as of this encounter Care Teams Steamtable Attendant Railroad Relationship Specialty Start Date End Date Caitlyn Bowie MD [address] [address] PCP - General Internal Medicine 05/06/21 documented as of this encounter
--- OUTSIDE RECORDS SUMMARY | 2024-11-04 17:50 | XMS_ITS | Encounter Summary ---
Author Organization [facility] and [facility] Address [address] [place] [address] Care Team Providers Care Supervisor Enrobing Name Role Phone Caitlyn Bowie MD Primary Care Provider +1- [phone] Encounter Details Date Type Department Care Team (Late st Contact Info) Description 04/12/2021 Scanned Document INTERFACE DEFAULT [address] [place] [address] System, Provider Not In Social History Tobacco [...] Cancer Center at [facility] 240 [facility] Building [address] [place], [place] [phone] Ronald Mills MD [address] [place] [address] [address] [place] [address] documented as of this encounter [...] as of this encounter Care Teams Supervisor Enrobing Relationship Specialty Start Date End Date Caitlyn Bowie MD [address] [address] PCP - General Internal Medicine 05/06/21 documented as of this encounter
--- OUTSIDE RECORDS SUMMARY | 2024-11-04 17:50 | XMS_ITS | Encounter Summary ---
Author Organization [facility] and [facility] Address [address] [place] [address] Care Team Providers Care Developer Designer Name Role Phone Caitlyn Bowie MD Primary Care Provider +1- [phone] Encounter Details Date Type Department Care Team (Late st Contact Info) Description 08/29/2019 Scanned Document Cancer Center at [address] [address] External, Provider Social History Tobacco Use Types [...] [facility] 240 [facility] Building [address] [place], [place] [phone] Ronald Mills MD [address] [place] [address] [address] [place] [address] documented as of this encounter [...] documented as of this encounter Care Teams Developer Designer Relationship Specialty Start Date End Date Caitlyn Bowie MD 3400 [facility] 1 [place] [address] PCP - General Internal Medicine 05/06/21 Henry Kelly MD Pulmonary Department 175 [facility], [address] [place] [address] Physician Pulmonary Disease 09/06/17 06/22/20 documented as of this encounter
--- OUTSIDE RECORDS SUMMARY | 2024-11-04 17:50 | XMS_ITS | Encounter Summary ---
Author Organization [facility] Address [address] [place] [address] Care Team Providers Care High [employer] Industrial Arts Teacher Name Role Phone Caitlyn Bowie MD Primary Care Provider +1- [phone] Encounter Details Date Type Department Care Team (Late st Contact Info) Description 04/26/2017 Scanned Document Cardiovascular Medicine at [address] [place] [address] System, Provider Not In Social History Tobacco [...] [facility] 240 [facility] Building [address] [place], [place] [phone] Ronald Mills MD 240 [facility] [address] [place] [address] documented as of this encounter [...] of this encounter Care Teams High [employer] Industrial Arts Teacher Relationship Specialty Start Date End Date Caitlyn Bowie MD [address] [facility] [address] [place] [address] PCP - General Internal Medicine 05/06/21 Henry Kelly MD Pulmonary Department 175 [facility], [address] [place] [address] Physician Pulmonary Disease 09/06/17 06/22/20 documented as of this encounter
--- OUTSIDE RECORDS SUMMARY | 2024-11-04 17:50 | XMS_ITS | Encounter Summary ---
Author Organization [facility] and [facility] Address [address] [place] [address] Care Team Providers Care Respiratory Care Assistant Name Role Phone Caitlyn Bowie MD Primary Care Provider +1- [phone] Encounter Details Date Type Department Care Team (Late st Contact Info) Description 04/02/2021 Scanned Document INTERFACE DEFAULT [address] [place] [address] System, Provider Not In Social History Tobacco [...] at [facility] 240 [facility] Building [address] [place], [place] [phone] Ronald Mills MD [address] [place] [address] [address] [place] [address] documented as of this encounter [...] as of this encounter Care Teams Respiratory Care Assistant Relationship Specialty Start Date End Date Caitlyn Bowie MD [address] [address] PCP - General Internal Medicine 05/06/21 documented as of this encounter
--- OUTSIDE RECORDS SUMMARY | 2024-11-04 17:50 | XMS_ITS | Encounter Summary ---
Author Organization [facility] and [facility] Address [address] [place] [address] Care Team Providers Care Resistor Testing Machine Operator Name Role Phone Caitlyn Bowie MD Primary Care Provider +1- [phone] Encounter Details Date Type Department Care Team (Late st Contact Info) Description 07/01/2019 Scanned Document Onco-Oncology Program at [address] [place] [address] Norma Renee MD [address] [place] [address] 2 [place] [phone] Social History Tobacco Use Types Packs/Day Years [...] 4:00 PM EDT Telemedicine Cancer Center at [address] [place], [place] [phone] Ronald Mills MD 240 [facility] A1 [place] [address] documented as of this encounter Visit Diagnoses Not on filedocumented in this encounter Additional Health Concerns Infection Onset Date Last Indicated Resolved Time COVID-19 03/05/2022 03/05/2022 03/15/2022 7:18 PM EDT Assessment Noted Time PHQ-9 Depression Total Score: 2 11/07/19 19 2:06 PM EDT documented as of this encounter Care Teams Resistor Testing Machine Operator Relationship Specialty Start Date End Date Caitlyn Bowie MD 3400 [facility] 1 [place] [address] PCP - General Internal Medicine 05/06/21 Henry Kelly MD Pulmonary Department 175 [facility], [address] [place] [address] Physician Pulmonary Disease 09/06/17 06/22/20 documented as of this encounter
--- OUTSIDE RECORDS SUMMARY | 2024-11-04 17:51 | XMS_ITS | Encounter Summary ---
Author Organization [facility] Address [address] [place] [address] Care Team Providers Care Drosophere Operator Name Role Phone Caitlyn Bowie MD Primary Care Provider +1- [phone] Encounter Details Date Type Department Care Team (Late st Contact Info) Description 02/15/2021 Scanned Document INTERFACE DEFAULT [address] [place] [address] System, Provider Not In Social History Tobacco [...] [facility] Center at [facility] 240 [facility] Building [address] [place] [address] Ronald Mills MD [address] [place] [address] [address] [place] [address] documented as of this encounter Visit Diagnoses Not on filedocumented in this encounter Additional Health Concerns Infection Onset Date Last Indicated Resolved Time COVID-19 03/05/2022 03/05/2022 03/15/2022 7:18 PM EDT Assessment Noted Time PHQ-9 Depression Total Score: 2 11/07/19 19 2:06 PM EDT documented as of this encounter Care Teams Drosophere Operator Relationship Specialty Start Date End Date Caitlyn Bowie MD [address] [address] PCP - General Internal Medicine 05/06/21 documented as of this encounter
--- OUTSIDE RECORDS SUMMARY | 2024-11-04 17:51 | XMS_ITS | Encounter Summary ---
Author Organization [facility] and [facility] Address [address] [place] [address] Care Team Providers Care Sprayer Automatic Spray Machine Name Role Phone Caitlyn Bowie MD Primary Care Provider +1- [phone] Encounter Details Date Type Department Care Team (Late st Contact Info) Description 02/28/2021 Scanned Document INTERFACE DEFAULT [address] [place] [address] System, Provider Not In Social History Tobacco [...] [facility] Building [address] [place] [address] Ronald Mills MD [address] [place] [address] [address] [place] [address] documented as of this encounter [...] documented as of this encounter Care Teams Sprayer Automatic Spray Machine Relationship Specialty Start Date End Date Caitlyn Bowie MD [address] [address] PCP - General Internal Medicine 05/06/21 documented as of this encounter
--- OUTSIDE RECORDS SUMMARY | 2024-11-04 17:51 | XMS_ITS | Encounter Summary ---
Author Organization [facility] Address [address] [place] [address] Care Team Providers Care Medical Imaging Technologist Name Role Phone Caitlyn Bowie MD Primary Care Provider +1- [phone] Encounter Details Date Type Department Care Team (Late st Contact Info) Description 01/26/2018 Scanned Document [facility] Health Information Management [address] [place] [address] External, Provider Social History Tobacco Use Types [...] [facility] 240 [facility] Building [address] [place], [place] [phone] Ronald Mills MD [address] [place] [address] [address] [place] [address] documented as of this encounter [...] as of this encounter Care Teams Medical Imaging Technologist Relationship Specialty Start Date End Date Caitlyn Bowie MD 3400 [facility] 1 [place] [address] PCP - General Internal Medicine 05/06/21 Henry Kelly MD Pulmonary Department 175 [facility], [address] [place] [address] Physician Pulmonary Disease 09/06/17 06/22/20 documented as of this encounter
--- OUTSIDE RECORDS SUMMARY | 2024-11-04 17:51 | XMS_ITS | Encounter Summary ---
Author Organization [facility] and [facility] Address [address] [place] [address] Care Team Providers Care Associate Project Manager Name Role Phone Caitlyn Bowie MD Primary Care Provider +1- [phone] Encounter Details Date Type Department Care Team (Late st Contact Info) Description 08/23/2017 Scanned Document COUNTS INCLUDE 234 [facility] AT [facility] Health Information Management [address] [place] [address] External, Provider Social History Tobacco Use Types [...] [facility] Center at [facility] 240 [facility] Building [address] [place], [place] [phone] Ronald Mills MD [address] [place] [address] [address] [place] [address] documented as of [...] as of this encounter Care Teams Associate Project Manager Relationship Specialty Start Date End Date Caitlyn Bowie MD 3400 [facility] 1 [place] [address] PCP - General Internal Medicine 05/06/21 Henry Kelly MD Pulmonary Department 175 [facility], [address] [place] [address] Physician Pulmonary Disease 09/06/17 06/22/20 documented as of this encounter
--- OUTSIDE RECORDS SUMMARY | 2024-11-04 17:51 | XMS_ITS | Encounter Summary ---
Author Organization [facility] and [facility] Address [address] [place] [address] Care Team Providers Care Ecological Economist Name Role Phone Caitlyn Bowie MD Primary Care Provider +1- [phone] Encounter Details Date Type Department Care Team (Late st Contact Info) Description 11/07/2014 Scanned Document [facility] Health Information Management [address] [place] [address] External, Provider Social History Tobacco Use Types [...] [facility] at [facility] 240 [facility] [address] [place], [place] [phone] Ronald Mills MD 240 [facility] [address]1 [place] [address] documented as of this encounter Visit Diagnoses Not on filedocumented in this encounter Additional Health Concerns Infection Onset Date Last Indicated Resolved Time COVID-19 03/05/2022 03/05/2022 03/15/2022 7:18 PM EDT documented as of this encounter Care Teams Ecological Economist Relationship Specialty Start Date End Date Caitlyn Bowie MD 3400 [facility] 1 [place] [address] PCP - General Internal Medicine 05/06/21 Henry Kelly MD Pulmonary Department 175 [facility], [address] [place] [address] Physician Pulmonary Disease 09/06/17 06/22/20 documented as of this encounter
--- OUTSIDE RECORDS SUMMARY | 2024-11-04 17:51 | XMS_ITS | Encounter Summary ---
Author Organization [facility] Address [address] [place] [address] Care Team Providers Care Time Study Engineer Name Role Phone Caitlyn Bowie MD Primary Care Provider +1- [phone] Encounter Details Date Type Department Care Team (Late st Contact Info) Description 06/25/2015 Scanned Document [facility] Health Information Management [address] [place] [address] External, Provider Social History Tobacco Use Types [...] [facility] 240 [facility] Building [address] [place], [place] [phone] Ronald Mills MD 240 [facility] A1 [place] [address] documented as of this encounter Visit Diagnoses Not on filedocumented in this encounter Additional Health Concerns Infection Onset Date Last Indicated Resolved Time COVID-19 03/05/2022 03/05/2022 03/15/2022 7:18 PM EDT documented as of this encounter Care Teams Time Study Engineer Relationship Specialty Start Date End Date Caitlyn Bowie MD 3400 [facility] 1 [place] [address] PCP - General Internal Medicine 05/06/21 Henry Kelly MD Pulmonary Department 175 [facility], [address] [place] [address] Physician Pulmonary Disease 09/06/17 06/22/20 documented as of this encounter
--- OUTSIDE RECORDS SUMMARY | 2024-11-04 17:51 | XMS_ITS | Encounter Summary ---
Author Organization [facility] and [facility] Address 20 [place] [address] Care Team Providers Care Forklift Operator Name Role Phone Caitlyn Bowie MD Primary Care Provider +1- [phone] Encounter Details Date Type Department Care Team (Late st Contact Info) Description 01/13/2021 Scanned Document [facility] at [address] [address] Ronald Mills MD [address] [address] Social History Tobacco Use Types [...] 4:00 PM EDT Telemedicine Cancer Center at [address] [place] [address] Ronald Mills MD [address] [address] documented as of this encounter [...] as of this encounter Care Teams Forklift Operator Relationship Specialty Start Date End Date Caitlyn Bowie MD [address] [address] PCP - General Internal Medicine 05/06/21 documented as of this encounter
--- OUTSIDE RECORDS SUMMARY | 2024-11-04 17:51 | XMS_ITS | Encounter Summary ---
Author Organization [facility] and [facility] Address [address] [place] [address] Care Team Providers Care Geriatric Physician Name Role Phone Caitlyn Bowie MD Primary Care Provider +1- [phone] Encounter Details Date Type Department Care Team (Late st Contact Info) Description 09/18/2020 Scanned Document INTERFACE DEFAULT [address] [place] [address] System, Provider Not In Social History Tobacco [...] at [facility] 240 [facility] [address] [place] [address] Ronald Mills MD [address] [place] [address] [address] [place] [address] documented as of this encounter Visit Diagnoses Not on filedocumented in this encounter Additional Health Concerns Infection Onset Date Last Indicated Resolved Time COVID-19 03/05/2022 03/05/2022 03/15/2022 7:18 PM EDT Assessment Noted Time PHQ-9 Depression Total Score: 2 11/07/19 19 2:06 PM EDT documented as of this encounter Care Teams Geriatric Physician Relationship Specialty Start Date End Date Caitlyn Bowie MD [address] [address] PCP - General Internal Medicine 05/06/21 documented as of this encounter
--- OUTSIDE RECORDS SUMMARY | 2024-11-04 17:51 | XMS_ITS | Encounter Summary ---
Author Organization [facility] Address [address] [place] [address] Care Team Providers Care Data Warehouse Developer Name Role Phone Caitlyn Bowie MD Primary Care Provider +1- [phone] Encounter Details Date Type Department Care Team (Late st Contact Info) Description 02/02/2018 Scanned Document [facility] Health Information Management [address] [place] [address] External, Provider Social History Tobacco Use Types [...] at [facility] 240 [facility] Building [address] [place], [place] [phone] Ronald Mills MD 240 [facility] A1 [place] [address] documented as of this encounter Visit Diagnoses Not on filedocumented in this encounter Additional Health Concerns Infection Onset Date Last Indicated Resolved Time COVID-19 03/05/2022 03/05/2022 03/15/2022 7:18 PM EDT documented as of this encounter Care Teams Data Warehouse Developer Relationship Specialty Start Date End Date Caitlyn Bowie MD 3400 [facility] 1 [place] [address] PCP - General Internal Medicine 05/06/21 Henry Kelly MD Pulmonary Department 175 [facility], [address] [place] [address] Physician Pulmonary Disease 09/06/17 06/22/20 documented as of this encounter
--- OUTSIDE RECORDS SUMMARY | 2024-11-04 17:51 | XMS_ITS | Encounter Summary ---
Author Organization [facility] Address [address] [place] [address] Care Team Providers Care Supervisor Fiber Locking Name Role Phone Caitlyn Bowie MD Primary Care Provider +1- [phone] Encounter Details Date Type Department Care Team (Late st Contact Info) Description 05/14/2015 Scanned Document [facility] Health Information Management [address] [place] [address] External, Provider Social History Tobacco Use [...] [facility] 240 [facility] Building [address] [place], [place] [phone] Ronald Mills MD 240 [facility] A1 [place] [address] documented as of this encounter Visit Diagnoses Not on filedocumented in this encounter Additional Health Concerns Infection Onset Date Last Indicated Resolved Time COVID-19 03/05/2022 03/05/2022 03/15/2022 7:18 PM EDT documented as of this encounter Care Teams Supervisor Fiber Locking Relationship Specialty Start Date End Date Caitlyn Bowie MD 3400 [facility] 1 [place] [address] PCP - General Internal Medicine 05/06/21 Henry Kelly MD Pulmonary Department 175 [facility], [address] [place] [address] Physician Pulmonary Disease 09/06/17 06/22/20 documented as of this encounter
--- OUTSIDE RECORDS SUMMARY | 2024-11-04 17:51 | XMS_ITS | Encounter Summary ---
Author Organization [facility] and [facility] Address [address] [place] [address] Care Team Providers Care Drug Safety Associate Name Role Phone Caitlyn Bowie MD Primary Care Provider +1- [phone] Encounter Details Date Type Department Care Team (Late st Contact Info) Description 02/11/2021 Scanned Document INTERFACE DEFAULT [address] [place] [address] System, Provider Not In Social History Tobacco [...] [facility] 240 [facility] [address] [place] [address] Ronald Mills MD [address] [place] [address] [address] [place] [address] documented as of [...] as of this encounter Care Teams Drug Safety Associate Relationship Specialty Start Date End Date Caitlyn Bowie MD [address] [address] PCP - General Internal Medicine 05/06/21 documented as of this encounter
--- OUTSIDE RECORDS SUMMARY | 2024-11-04 17:51 | XMS_ITS | Encounter Summary ---
Author Organization [facility] and [facility] Address [address] [place] [address] Care Team Providers Care Commissary Superintendent Name Role Phone Caitlyn Bowie MD Primary Care Provider +1- [phone] Encounter Details Date Type Department Care Team (Late st Contact Info) Description 02/02/2018 Scanned Document [facility] Health Information Management [address] [place] [address] External, Provider Social History Tobacco Use Types [...] at [facility] 240 [facility] Building [address] [place], [place] [phone] Ronald Mills MD [address] [place] [address] [address] [place] [address] documented as of [...] documented as of this encounter Care Teams Commissary Superintendent Relationship Specialty Start Date End Date Caitlyn Bowie MD 3400 [facility] 1 [place] [address] PCP - General Internal Medicine 05/06/21 Henry Kelly MD Pulmonary Department 175 [facility], [address] [place] [address] Physician Pulmonary Disease 09/06/17 06/22/20 documented as of this encounter
--- OUTSIDE RECORDS SUMMARY | 2024-11-04 17:51 | XMS_ITS | Encounter Summary ---
Author Organization [facility] and [facility] Address 20 [place] [address] Care Team Providers Care Pay Agent Name Role Phone Caitlyn Bowie MD Primary Care Provider +1- [phone] Encounter Details Date Type Department Care Team (Late st Contact Info) Description 10/07/2013 Scanned Document [facility] at [address] [address] Suzy Kong MD [address] [place] [address] Social History Tobacco Use Types Packs/Day [...] at [facility] 240 [facility] Building [address] [place], [place] [phone] Ronald Mills MD 240 [facility] A1 [place] [address] documented as of this encounter Visit Diagnoses Not on filedocumented in this encounter Additional Health Concerns Infection Onset Date Last Indicated Resolved Time COVID-19 03/05/2022 03/05/2022 03/15/2022 7:18 PM EDT documented as of this encounter Care Teams Pay Agent Relationship Specialty Start Date End Date Caitlyn Bowie MD 3400 [facility] Max 1 [place] [address] PCP - General Internal Medicine 05/06/21 Henry Kelly MD Pulmonary Department 175 [facility], [address] [place] [address] Physician Pulmonary Disease 09/06/17 06/22/20 documented as of this encounter
--- OUTSIDE RECORDS SUMMARY | 2024-11-04 17:51 | XMS_ITS | Encounter Summary ---
Author Organization [facility] and [facility] Address [address] [place] [address] Care Team Providers Care Pearl Diver Name Role Phone Caitlyn Bowie MD Primary Care Provider +1- [phone] Encounter Details Date Type Department Care Team (Late st Contact Info) Description 01/13/2021 Scanned Document Cancer Center at [address] [address] External, Provider Social History Tobacco Use Types [...] at [facility] 240 [facility] Building [address] [place], [place] [address] Ronald Mills MD [address] [place] [address] [address]1 [place] [address] documented as of [...] documented as of this encounter Care Teams Pearl Diver Relationship Specialty Start Date End Date Caitlyn Bowie MD [address] [address] PCP - General Internal Medicine 05/06/21 documented as of this encounter
--- OUTSIDE RECORDS SUMMARY | 2024-11-04 17:51 | XMS_ITS | Encounter Summary ---
Author Organization [facility] and [facility] Address [address] [place] [address] Care Team Providers Care Runstitching Machine Operator Name Role Phone Catilyn Bowie MD Primary Care Provider +1- [phone] Encounter Details Date Type Department Care Team (Late st Contact Info) Description 02/24/2021 Scanned Document INTERFACE DEFAULT [address] [place] [address] System, Provider Not In Social History Tobacco [...] at [facility] 240 [facility] Building [address] [place] [address] Ronald Mills MD [address] [place] [address] [address] [place] [address] documented as of this encounter [...] documented as of this encounter Care Teams Runstitching Machine Operator Relationship Specialty Start Date End Date Caitlyn Bowie MD [address] [address] PCP - General Internal Medicine 05/06/21 documented as of this encounter
--- OUTSIDE RECORDS SUMMARY | 2024-11-04 17:51 | XMS_ITS | Encounter Summary ---
Author Organization [facility] and [facility] Address [address] [place] [address] Care Team Providers Care Railroad Signal And Switch Operator Name Role Phone Caitlyn Bowie MD Primary Care Provider +1- [phone] Encounter Details Date Type Department Care Team (Late st Contact Info) Description 03/16/2021 Scanned Document INTERFACE DEFAULT [address] [place] [address] System, Provider Not In Social History Tobacco [...] [facility] Building [address] [place] [address] Ronald Mills MD [address] [place] [address] [address]1 [place] [address] documented as of this encounter Visit Diagnoses Not on filedocumented in this encounter Additional Health Concerns Infection Onset Date Last Indicated Resolved Time COVID-19 03/05/2022 03/05/2022 03/15/2022 7:18 PM EDT Assessment Noted Time PHQ-9 Depression Total Score: 2 11/07/19 19 2:06 PM EDT documented as of this encounter Care Teams Railroad Signal And Switch Operator Relationship Specialty Start Date End Date Caitlyn Bowie MD [address] [address] PCP - General Internal Medicine 05/06/21 documented as of this encounter
--- OUTSIDE RECORDS SUMMARY | 2024-11-04 17:51 | XMS_ITS | Encounter Summary ---
Author Organization [facility] and [facility] Address [address] [place] [address] Care Team Providers Care Manager Recovery Name Role Phone Caitlyn Bowie MD Primary Care Provider +1- [phone] Encounter Details Date Type Department Care Team (Late st Contact Info) Description 01/30/2018 Scanned Document [facility] Health Information Management [address] [place] [address] External, Provider Social History Tobacco Use Types [...] [facility] 240 [facility] Building [address] [place] [address] Ronald Mills MD [address] [place] [address] [address]1 [place] [address] documented as of this encounter [...] as of this encounter Care Teams Manager Recovery Relationship Specialty Start Date End Date Caitlyn Bowie MD [facility] 1 [place] [address] PCP - General Internal Medicine 05/06/21 Henry Kelly MD Pulmonary Department 175 [facility], [address] [place] [address] Physician Pulmonary Disease 09/06/17 06/22/20 documented as of this encounter
--- OUTSIDE RECORDS SUMMARY | 2024-11-04 17:51 | XMS_ITS | Encounter Summary ---
Author Organization [facility] and [facility] Address 20 [place] [address] Care Team Providers Care Nail Assembly Machine Operator Name Role Phone Caitlyn Bowie MD Primary Care Provider +1- [phone] Encounter Details Date Type Department Care Team (Late st Contact Info) Description 01/27/2021 Scanned Document Cancer Center at [address] [address] External, Provider Social History Tobacco Use Types [...] [facility] 240 [facility] Building [address] [place], [place] [phone] Ronald Mills MD [address] [place] [address] [address]1 [place] [address] documented as of this encounter [...] as of this encounter Care Teams Nail Assembly Machine Operator Relationship Specialty Start Date End Date Caitlyn Bowie MD [address] [address] PCP - General Internal Medicine 05/06/21 documented as of this encounter
--- OUTSIDE RECORDS SUMMARY | 2024-11-04 17:51 | XMS_ITS | Encounter Summary ---
Author Organization [facility] and [facility] Address [address] [place] [address] Care Team Providers Care Business Manager [employer] Name Role Phone Caitlyn Bowie MD Primary Care Provider +1- [phone] Encounter Details Date Type Department Care Team (Late st Contact Info) Description 05/01/2015 Scanned Document [facility] Health Information Management [address] [place] [address] External, Provider Social History Tobacco Use Types [...] [facility] 240 [facility] Building [address] [place], [place] [address] Ronald Mills MD 240 [facility] Max [address]1 [place] [address] documented as of this encounter [...] Bowie MD 3400 [facility] Max 1 [place] [address] PCP - General Internal Medicine 05/06/21 Henry Kelly MD Pulmonary Department 175 [facility], [address] [place] [address] Physician Pulmonary Disease 09/06/17 06/22/20 documented as of this encounter
--- OUTSIDE RECORDS SUMMARY | 2024-11-04 17:51 | XMS_ITS | Encounter Summary ---
Author Organization [facility] and [facility] Address [address] [place] [address] Care Team Providers Care Review Scheduling Coordinator Name Role Phone Caitlyn Bowie MD Primary Care Provider +1- [phone] Encounter Details Date Type Department Care Team (Late st Contact Info) Description 02/25/2021 Scanned Document INTERFACE DEFAULT [address] [place] [address] System, Provider Not In Social History Tobacco [...] [facility] 240 [facility] Building [address] [place] [address] Ronald Mills MD [address] [place] [address] [address] [place] [address] documented as of this encounter [...] as of this encounter Care Teams Review Scheduling Coordinator Relationship Specialty Start Date End Date Caitlyn Bowie MD [address] [address] PCP - General Internal Medicine 05/06/21 documented as of this encounter
--- OUTSIDE RECORDS SUMMARY | 2024-11-04 17:51 | XMS_ITS | Encounter Summary ---
Author Organization [facility] Address [address] [place] [address] Care Team Providers Care Home Supervisor Name Role Phone Brennan Burnett MD Primary Care Provider [phone] Reason for Visit * Reason Onset Date Comments Provider Call Back 11/04/2024 Encounter Details Date Type Department Care Team (Late st Contact Info) Description 11/04/2024 Telephone Gastroenterology - [address] [facility] [address] [place] [phone] Tim Gomes MD [address] [facility] [address] [place] [address] Provider Call Back Social History Tobacco Use [...] 2:25 PM EST Sheila Leahy RN * Do you have serious difficulty [...] documented in this encounter Progress Notes * Claudia Cardona MA - 11/04/2024 9:14 AM EDT SPOKE WITH PATIENT. ADVISED THAT IF SHE IS GETTING WORSE THAT SHE NEEDS TO RETURN TO THE ER. * Anastasiia Spears - 11/04/2024 8:52 AM EDT Pt is calling because she had spoke with 05 late on Monday and he told her to go to the ER. She went to [facility] and they diagnosed her with diverticulitis, they did not give her any antibiotics dueto her allergies. When they did her xray, they gave her milk and she feels like she has gotten worse. Currently experiencing smelly gas and intense abd pain. Advised pt to call [facility] medical records to have ER records faxed over to us. Please call back pt to advise on next steps. documented in this encounter Plan of Treatment Upcoming Encounters Date Type Department Care Team (Late st Contact Info) Description 12/10/2024 1:30 PM EDT Office Visit [facility] 175 [facility] [address] [place] [address] Shirley Chaidez PA 175 [facility] 150 [place] [address] 12/23/2024 9:00 AM EDT Office Visit [facility] - [place] [address] [facility] 210 [place] [address] Jerry Li MD 300 [facility] 210 [place] [address] documented as of this encounter Visit Diagnoses Not on filedocumented in this encounter Care Teams Home Supervisor Relationship Specialty Start Date End Date Brennan Burnett MD [address] [place] [address] PCP - General 05/06/24 documented as of this encounter
--- OUTSIDE RECORDS SUMMARY | 2024-11-04 17:51 | XMS_ITS | Encounter Summary ---
Author Organization [facility] Address [address] [place] [address] Care Team Providers Care Infant Childcare Provider Name Role Phone Caitlyn Bowie MD Primary Care Provider +1- [phone] Encounter Details Date Type Department Care Team ([facility] st Contact Info) Description 08/26/2014 Documentation [facility] [address] [place] [address] Shilpi Ibarra [address] [place] [address] Social History Tobacco Use Types Packs/Day Years [...] Upcoming Encounters Date Type Department Care Team ([facility] st Contact Info) Description 04/25/2025 4:00 PM EDT Telemedicine [facility] at [facility] 240 [facility] Building [address] [place] [address] Ronald Mills MD 240 [facility] Max [address] [place] [address] documented as of this encounter Visit Diagnoses Not on filedocumented in this encounter Additional Health Concerns Infection Onset Date Last Indicated Resolved Time COVID-19 03/05/2022 03/05/2022 03/15/2022 7:18 PM EDT documented as of this encounter Care Teams Infant Childcare Provider Relationship Specialty Start Date End Date Caitlyn Bowie MD 3400 [facility] 1 [place] [address] PCP - General Internal Medicine 05/06/21 Henry Kelly MD Pulmonary Department 175 [facility], [address] [place] [address] Physician Pulmonary Disease 09/06/17 06/22/20 documented as of this encounter
--- OUTSIDE RECORDS SUMMARY | 2024-11-04 17:51 | XMS_ITS | Encounter Summary ---
Author Organization [facility] and [facility] Address [address] [place] [address] Care Team Providers Care Open Shank Coverer Name Role Phone Caitlyn Bowie MD Primary Care Provider +1- [phone] Encounter Details Date Type Department Care Team (Late st Contact Info) Description 03/11/2021 Scanned Document INTERFACE DEFAULT [address] [place] [address] System, Provider Not In Social History Tobacco [...] [facility] 240 [facility] Building [address] [place], [place] [address] Ronald Mills MD [address] [place] [address] [address] [place] [address] documented as [...] Bowie MD [facility] [address] [address] PCP - General Internal Medicine 05/06/21 documented as of this encounter
--- OUTSIDE RECORDS SUMMARY | 2024-11-04 17:51 | XMS_ITS | Encounter Summary ---
Author Organization [facility] and [facility] Address [address] [place] [address] Care Team Providers Care Talent Sourcing Specialist Name Role Phone Caitlyn Bowie MD Primary Care Provider +1- [phone] Encounter Details Date Type Department Care Team (Late st Contact Info) Description 12/21/2020 Scanned Document INTERFACE DEFAULT [address] [place] [phone] System, Provider Not In Social History [...] [facility] Building [address] [place] [address] Ronald Mills MD [address] [place] [address] [address] [place] [address] documented as of this encounter Visit Diagnoses Not on filedocumented in this encounter Additional Health Concerns Infection Onset Date Last Indicated Resolved Time COVID-19 03/05/2022 03/05/2022 03/15/2022 7:18 PM EDT Assessment Noted Time PHQ-9 Depression Total Score: 2 11/07/19 19 2:06 PM EDT documented as of this encounter Care Teams Talent Sourcing Specialist Relationship Specialty Start Date End Date Caitlyn Bowie MD [address] [address] PCP - General Internal Medicine 05/06/21 documented as of this encounter
--- OUTSIDE RECORDS SUMMARY | 2024-11-04 17:51 | XMS_ITS | Encounter Summary ---
Author Organization [facility] and [facility] Address [address] [place] [address] Care Team Providers Care Ingredient Scaler Helper Name Role Phone Caitlyn Bowie MD Primary Care Provider +1- [phone] Encounter Details Date Type Department Care Team (Late st Contact Info) Description 01/26/2018 Scanned Document [facility] Health Information Management [address] [place] [address] External, Provider Social History Tobacco Use Types [...] [facility] 240 [facility] Building [address] [place], [place] [id number] Ronald Mills MD 240 [facility] A1 [place] [address] documented as of this encounter Visit Diagnoses Not on filedocumented in this encounter Additional Health Concerns Infection Onset Date Last Indicated Resolved Time COVID-19 03/05/2022 03/05/2022 03/15/2022 7:18 PM EDT documented as of this encounter Care Teams Ingredient Scaler Helper Relationship Specialty Start Date End Date Caitlyn Bowie MD 3400 [facility] 1 [place] [address] PCP - General Internal Medicine 05/06/21 Henry Kelly MD Pulmonary Department 175 [facility], [address] [place] [address] Physician Pulmonary Disease 09/06/17 06/22/20 documented as of this encounter
--- OUTSIDE RECORDS SUMMARY | 2024-11-04 17:51 | XMS_ITS | Encounter Summary ---
Author Organization [facility] Address [address] [place] [address] Care Team Providers Care Water Mechanic Name Role Phone Caitlyn Bowie MD Primary Care Provider +1- [phone] Encounter Details Date Type Department Care Team (Late st Contact Info) Description 09/01/2017 Scanned Document [facility] Health Information Management [address] [place] [address] External, Provider Social History Tobacco Use Types [...] [facility] 240 [facility] Building [address] [place], [place] [id number] Ronald Mills MD [address] [place] [address] [address] [place] [address] documented as of this encounter [...] as of this encounter Care Teams Water Mechanic Relationship Specialty Start Date End Date Caitlyn Bowie MD [facility] 1 [place] [address] PCP - General Internal Medicine 05/06/21 Henry Kelly MD Pulmonary Department 175 [facility], [address] [place] [address] Physician Pulmonary Disease 09/06/17 06/22/20 documented as of this encounter
--- OUTSIDE RECORDS SUMMARY | 2024-11-04 17:51 | XMS_ITS | Encounter Summary ---
Author Organization [facility] and [facility] Address [address] [place] [address] Care Team Providers Care Medical Voucher Clerk Name Role Phone Caitlyn Bowie MD Primary Care Provider +1- [phone] Encounter Details Date Type Department Care Team (Late st Contact Info) Description 03/15/2021 Scanned Document INTERFACE DEFAULT [address] [place] [address] System, Provider Not In Social History Tobacco [...] [facility] 240 [facility] Building [address] [place], [place] [phone] Ronald Mills MD [address] [place] [address] [address] [place] [address] documented as of this encounter [...] as of this encounter Care Teams Medical Voucher Clerk Relationship Specialty Start Date End Date Caitlyn Bowie MD [facility] [address] [address] PCP - General Internal Medicine 05/06/21 documented as of this encounter
--- OUTSIDE RECORDS SUMMARY | 2024-11-04 17:51 | XMS_ITS | Encounter Summary ---
Author Organization [facility] and [facility] Address [address] [place] [address] Care Team Providers Care Promotional Advertising Assistant Name Role Phone Caitlyn Bowie MD Primary Care Provider +1- [phone] Encounter Details Date Type Department Care Team (Late st Contact Info) Description 02/03/2021 Scanned Document INTERFACE DEFAULT [address] [place] [address] System, Provider Not In Social History Tobacco [...] [facility] Building [address] [place], [place] [address] Ronald Mills MD [address] [place] [address] [address] [place] [address] documented as of this encounter [...] documented as of this encounter Care Teams Promotional Advertising Assistant Relationship Specialty Start Date End Date Caitlyn Bowie MD [address] [address] PCP - General Internal Medicine 05/06/21 documented as of this encounter
--- OUTSIDE RECORDS SUMMARY | 2024-11-04 17:51 | XMS_ITS | Encounter Summary ---
Author Organization [facility] Address [address] [place] [address] Care Team Providers Care Outpatient Facility Physical Therapist Name Role Phone Caitlyn Bowie MD Primary Care Provider +1- [phone] Encounter Details Date Type Department Care Team (Late st Contact Info) Description 03/01/2021 Scanned Document INTERFACE DEFAULT [address] [place] [address] System, Provider Not In Social History Tobacco [...] at [facility] 240 [facility] Building [address] [place] [address] Ronald Mills MD [address] [place] [address] [address]1 [place] [address] documented as of this encounter Visit Diagnoses Not on filedocumented in this encounter Additional Health Concerns Infection Onset Date Last Indicated Resolved Time COVID-19 03/05/2022 03/05/2022 03/15/2022 7:18 PM EDT Assessment Noted Time PHQ-9 Depression Total Score: 2 11/07/19 19 2:06 PM EDT documented as of this encounter Care Teams Outpatient Facility Physical Therapist Relationship Specialty Start Date End Date Caitlyn Bowie MD [address] [address] PCP - General Internal Medicine 05/06/21 documented as of this encounter
--- OUTSIDE RECORDS SUMMARY | 2024-11-04 17:51 | XMS_ITS | Encounter Summary ---
Author Organization [facility] and [facility] Address [address] [place] [address] Care Team Providers Care Neon Sign Servicer Name Role Phone Caitlyn Bowie MD Primary Care Provider +1- [phone] Encounter Details Date Type Department Care Team (Late st Contact Info) Description 02/07/2021 Scanned Document INTERFACE DEFAULT [address] [place] [address] System, Provider Not In Social History Tobacco [...] [facility] 240 [facility] Building [address] [place], [place] [address] Ronald Mills MD [address] [place] [address] [address] [place] [address] documented as of this encounter [...] as of this encounter Care Teams Neon Sign Servicer Relationship Specialty Start Date End Date Caitlyn Bowie MD [address] [address] PCP - General Internal Medicine 05/06/21 documented as of this encounter
--- OUTSIDE RECORDS SUMMARY | 2024-11-04 17:51 | XMS_ITS | Encounter Summary ---
Author Organization [facility] and [facility] Address [address] [place] [address] Care Team Providers Care Telephone Service Representative Name Role Phone Caitlyn Bowie MD Primary Care Provider +1- [phone] Encounter Details Date Type Department Care Team (Late st Contact Info) Description 11/29/2017 Scanned Document [facility] Health Information Management [address] [place] [address] External, Provider Social History Tobacco Use Types [...] [facility] 240 [facility] Building [address] [place], [place] [phone] Ronald Mills MD [address] [place] [address] [address]1 [place] [address] documented as of [...] as of this encounter Care Teams Telephone Service Representative Relationship Specialty Start Date End Date Caitlyn Bowie MD 3400 [facility] 1 [place] [address] PCP - General Internal Medicine 05/06/21 Henry Kelly MD Pulmonary Department 175 [facility], [address] [place] [address] Physician Pulmonary Disease 09/06/17 06/22/20 documented as of this encounter
--- OUTSIDE RECORDS SUMMARY | 2024-11-04 17:51 | XMS_ITS | Encounter Summary ---
Author Organization [facility] and [facility] Address 20 [place] [address] Care Team Providers Care Debt Collector Name Role Phone Caitlyn Bowie MD Primary Care Provider +1- [phone] Encounter Details Date Type Department Care Team (Late st Contact Info) Description 10/16/2013 Scanned Document [facility] [place] [facility] [address] [place] [address], 2nd floor [facility], [address] [place], [place] [address] Suzy Kong MD [address] [place] [address] Social History Tobacco Use Types Packs/Day [...] 4:00 PM EDT Telemedicine Cancer Center at [address] [place] [address] Ronald Mills MD 240 [facility] A1 [place] [address] documented as of this encounter Visit Diagnoses Not on filedocumented in this encounter Additional Health Concerns Infection Onset Date Last Indicated Resolved Time COVID-19 03/05/2022 03/05/2022 03/15/2022 7:18 PM EDT documented as of this encounter Care Teams Debt Collector Relationship Specialty Start Date End Date Caitlyn Bowie MD 3400 [facility] Max 1 [place] [address] PCP - General Internal Medicine 05/06/21 Henry Kelly MD Pulmonary Department 175 [facility], [address] [place] [address] Physician Pulmonary Disease 09/06/17 06/22/20 documented as of this encounter
--- OUTSIDE RECORDS SUMMARY | 2024-11-04 17:51 | XMS_ITS | Encounter Summary ---
Author Organization [facility] and [facility] Address [address] [place] [address] Care Team Providers Care Infantry Officer Name Role Phone Caitlyn Bowie MD Primary Care Provider +1- [phone] Encounter Details Date Type Department Care Team (Late Contact Info) Description 02/03/2021 Scanned Document [facility] Health Information Management [address] [place] [address] External, Provider Social History Tobacco Use Types [...] at [facility] 240 [facility] Building [address] [place], [place] [phone] Ronald Mills MD [address] [place] [address] [address]1 [place] [address] documented as of this encounter [...] documented as of this encounter Care Teams Infantry Officer Relationship Specialty Start Date End Date Caitlyn Bowie MD [address] [address] PCP - General Internal Medicine 05/06/21 documented as of this encounter
--- OUTSIDE RECORDS SUMMARY | 2024-11-04 17:51 | XMS_ITS | Encounter Summary ---
Author Organization [facility] and [facility] Address [address] [place] [address] Care Team Providers Care Grill Chef Name Role Phone Caitlyn Bowie MD Primary Care Provider +1- [phone] Encounter Details Date Type Department Care Team (Late st Contact Info) Description 03/14/2021 Scanned Document INTERFACE DEFAULT [address] [place] [address] System, Provider Not In Social History Tobacco [...] at [facility] 240 [facility] Building [address] [place], [place] [id number] Ronald Mills MD [address] [place] [address] [address] [place] [address] documented as of this encounter [...] as of this encounter Care Teams Grill Chef Relationship Specialty Start Date End Date Caitlyn Bowie MD [address] [address] PCP - General Internal Medicine 05/06/21 documented as of this encounter
--- OUTSIDE RECORDS SUMMARY | 2024-11-04 17:51 | XMS_ITS | Encounter Summary ---
Author Organization [facility] and [facility] Address [address] [place] [address] Care Team Providers Care Color Television Console Monitor Name Role Phone Caitlyn Bowie MD Primary Care Provider +1- [phone] Encounter Details Date Type Department Care Team (Late st Contact Info) Description 03/08/2021 Scanned Document INTERFACE DEFAULT [address] [place] [address] System, Provider Not In Social History Tobacco [...] [facility] 240 [facility] Building [address] [place], [place] [phone] Ronald Mills MD [address] [place] [address] [address] [place] [address] documented as of this encounter [...] documented as of this encounter Care Teams Color Television Console Monitor Relationship Specialty Start Date End Date Caitlyn Bowie MD [facility] [address] [address] PCP - General Internal Medicine 05/06/21 documented as of this encounter
--- OUTSIDE RECORDS SUMMARY | 2024-11-04 17:51 | XMS_ITS | Encounter Summary ---
Author Organization [facility] Address [address] [place] [address] Care Team Providers Care Operations Support Manager Name Role Phone Caitlyn Bowie MD Primary Care Provider +1- [phone] Encounter Details Date Type Department Care Team (Late st Contact Info) Description 02/08/2021 Scanned Document INTERFACE DEFAULT [address] [place] [address] System, Provider Not In Social History Tobacco [...] [facility] 240 [facility] Building [address] [place] [address] Ronald Mills MD [address] [place] [address] [address] [place] [address] documented as of this encounter Visit Diagnoses Not on filedocumented in this encounter Additional Health Concerns Infection Onset Date Last Indicated Resolved Time COVID-19 03/05/2022 03/05/2022 03/15/2022 7:18 PM EDT Assessment Noted Time PHQ-9 Depression Total Score: 2 11/07/19 19 2:06 PM EDT documented as of this encounter Care Teams Operations Support Manager Relationship Specialty Start Date End Date Caitlyn Bowie MD [address] [address] PCP - General Internal Medicine 05/06/21 documented as of this encounter
--- OUTSIDE RECORDS SUMMARY | 2024-11-04 17:51 | XMS_ITS | Encounter Summary ---
Author Organization [facility] and [facility] Address [address] [place] [address] Care Team Providers Care Substation Operator Apprentice Name Role Phone Caitlyn Bowie MD Primary Care Provider +1- [phone] Encounter Details Date Type Department Care Team (Late st Contact Info) Description 07/31/2015 Scanned Document [facility] Health Information Management [address] [place] [address] External, Provider Social History Tobacco Use Types [...] [facility] 240 [facility] Building [address] [place], [place] [phone] Ronald Mills MD 240 [facility] Max [address]1 [place] [address] documented as of this encounter Procedures Procedure Name Priority Date/Time Associated Diagnosis Comments NUC MED/PET RESULT SCAN Routine 07/31/2015 documented in this encounter Results * Nuc Med/PET Result Scan (07/31/2015) us Provider External IMG SCAN REPORTS Edited Result - Final [facility] [place], [place], [facility] documented in this encounter Visit Diagnoses Not on filedocumented in this encounter Additional Health Concerns Infection Onset Date Last Indicated Resolved Time COVID-19 03/05/2022 03/05/2022 03/15/2022 7:18 PM EDT documented as of this encounter Care Teams Substation Operator Apprentice Relationship Specialty Start Date End Date Caitlyn Bowie MD 3400 [facility] Max 1 [place] [address] PCP - General Internal Medicine 05/06/21 Henry Kelly MD Pulmonary Department 175 [facility], [address] [place] [address] Physician Pulmonary Disease 09/06/17 06/22/20 documented as of this encounter
--- OUTSIDE RECORDS SUMMARY | 2024-11-04 17:51 | XMS_ITS | Encounter Summary ---
Author Organization [facility] Address [address] [place] [address] Care Team Providers Care Mathematics Professor Name Role Phone Caitlyn Bowie MD Primary Care Provider +1- [phone] Encounter Details Date Type Department Care Team (Late st Contact Info) Description 11/09/2014 Scanned Document [facility] Health Information Management [address] [place] [address] External, Provider Social History Tobacco Use Types [...] [facility] 240 [facility] Building [address] [place], [place] [phone] Ronald Mills MD 240 [facility] A1 [place] [address] documented as of this encounter Visit Diagnoses Not on filedocumented in this encounter Additional Health Concerns Infection Onset Date Last Indicated Resolved Time COVID-19 03/05/2022 03/05/2022 03/15/2022 7:18 PM EDT documented as of this encounter Care Teams Mathematics Professor Relationship Specialty Start Date End Date Caitlyn Bowie MD 3400 [facility] 1 [place] [address] PCP - General Internal Medicine 05/06/21 Henry Kelly MD Pulmonary Department 175 [facility], [address] [place] [address] Physician Pulmonary Disease 09/06/17 06/22/20 documented as of this encounter
--- OUTSIDE RECORDS SUMMARY | 2024-11-04 17:51 | XMS_ITS | Encounter Summary ---
Author Organization [facility] and [facility] Address [address] [place] [address] Care Team Providers Care Plastic Tubing Insulation Supervisor Name Role Phone Caitlyn Bowie MD Primary Care Provider +1- [phone] Encounter Details Date Type Department Care Team (Late st Contact Info) Description 04/28/2015 Scanned Document [facility] Health Information Management [address] [place] [address] External, Provider Social History Tobacco Use Types [...] [facility] 240 [facility] Building [address] [place], [place] [phone] Ronald Mills MD 240 [facility] A1 [place] [address] documented as of this encounter Visit Diagnoses Not on filedocumented in this encounter Additional Health Concerns Infection Onset Date Last Indicated Resolved Time COVID-19 03/05/2022 03/05/2022 03/15/2022 7:18 PM EDT documented as of this encounter Care Teams Plastic Tubing Insulation Supervisor Relationship Specialty Start Date End Date Caitlyn Bowie MD 3400 [facility] 1 [place] [address] PCP - General Internal Medicine 05/06/21 Henry Kelly MD Pulmonary Department 175 [facility], [address] [place] [address] Physician Pulmonary Disease 09/06/17 06/22/20 documented as of this encounter
--- OUTSIDE RECORDS SUMMARY | 2024-11-04 17:51 | XMS_ITS | Data Portability ---
Author Organization [place] [facility], [facility] Address [address] [place] [address] Care Team Providers Care Cdl Service Technician Name Role Phone EVELIN RAMSAY Primary Care Provider [phone] SHANTI YBARRA OTHER [phone] Assessment Encounter Date Assessment Date Assessment [...] 911 activated Plan/Discussion: EMS handoff given to [facility] In order to obtain further information and compare any laboratory results/values, I have accessed old patient records. This information was pertinent in my medical decision making today. [email or web address] Not available 03/14/2021 13:20:46 07/18/2021 07/18/2021 Overview/History [...] as of yet. 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 This [...] after care of this patient according to [facility]'s infection prevention protocols. Time On Scene with [...] on her pillow approximately 3 [place] when she woke this morning. She has [...] after care of this patient according to [facility]'s infection prevention protocols. [email or web address] Not available 12/29/2021 14:43:37 Plan of Treatment Reminders Order Date Submit Date Provider Last Modified By Organization Details Last Modified Time Details Appointments None recorded. Lab None recorded. Referral None recorded. Procedures None recorded. Surgeries None recorded. Imaging None recorded. Medication Orders docusate sodium 100 mg capsule 2021 022 lnovia [id number], [address] [facility], [place], [address], 19:28:14 Patient TargetsNo targets recorded. Patient Instructions Encounter Date Encounter Id Patient Instructions Last Modified By Organization Details Last Modified Time 03/14/2021 [id number] Thank you for yo ur visit with [facility] today. You were seen today for abdominal [...] in your condition between 8am-10pm, please call [facility] at [phone] to help navigate your care. [email or web address] Not available 03/14/2021 12:46:32 10/18/2021 [id number] It was great to see you today! Thank you for letting [facility] assist you in your medical needs [...] follow up with your PCP please [facility] for [facility]uation. Please present to the [...] INR 1.2 0.9-1. 2 Not Available [facility] [address] [place], [address], 02/11/2021 16:58:14 02/12/20 21 02/11/2021 , sylvia vance lower extre mity No observ ation record ed. [address] (Imaging) [address] [place], [address], 02/12/2021 08:19:41 Result Notes None recorded. Problems Name Problem SNOMED Code Status Onset Date Resolution Date Notes Provider Name and Address Organization Details Recorded Time Chronic obstructive pulmonary disease 00949932 Active 2018 ARCELIA PATELALON WINSTON [address], [place], [address], [place] [facility] 9 12:59:21 Problem Notes None recorded. Procedures Surgical History Date Name Laterality Status Provider Name and Address Organization Details Recorded Time Total Hysterectomy completed Cristine Sidhu, SWATCH CLERK [address], [place], [address], [place] [facility] 10/18/2021 19:39:45 lobectomy of lung completed Cristine frazier, SWATCH CLERK [address], [place], [address], [place] [facility] 10/18/2021 19:40:05 Remove tonsils and adenoids completed Cristine Sidhu, ALON [address], [place], [address], [place] [facility] 10/18/2021 19:40:22 Imaging Results Imaging Date Name Status LastModified by Organiz ation Details LastModified Time 02/11/2021 US, duplex, venous, lower extremity completed [address] (Imaging) [address] [place], [address], 02/12/2021 08:19:41 Procedure Notes None recorded. Medical Equipment None Reported. Allergies Allergen ID Allergen Name Allergen Category Reaction Reaction Severity Criticality Documentation Date Start Date Code Code System Note Provider Name and Address Organization Details Recorded Time 20685 Product containin g penicilli n (product) medicatio n Not available Not available Not available 06/15/2019 63495 8001 SNOMED ARCELIA PATELTISH SWATCH CLERK [address], [place], [address], [place] [facility] 9 12:56:48 86363 Substance with sulfonami de structure and antibacte rial mechanism of action (substanc e) medicatio n Not available Not available Not available 06/15/2019 08936 8003 SNOMED ARCELIA FAJARDO , SWATCH CLERK [address], [place], [address], [place] [facility] 9 12:56:54 15001 Voltaren medicatio n Not available Not available Not available 06/15/201964671 6 RxNorm ARCELIA FAJARDO , SWATCH CLERK [address], [facility] [place], [address], [place] [facility] 9 12:57:01 96741 Iodinated contrast media (substanc e) medicatio n Not available Not available Not available 06/15/2019 65540 2004 SNOMED ARCELIA FAJARDO , SWATCH CLERK [address], [place], [address], [place] [facility] 9 12:57:07 48682 vancomyci n medicatio n Not available Not available Not available 06/15/2019 48953 RxNorm ARCELIA FAJARDO , SWATCH CLERK [address], [place] [place], [address], [place] [facility] 9 12:57:14 89119 gentamici n medicatio n Not available Not available Not available 06/15/2019 23003 50 RxNorm ARCLEIA FAJARDO , SWATCH CLERK [address], [place], [address], [place] [facility] 9 12:57:20 89822 Biaxin medicatio n Not available Not available Not available 06/15/201982694 9 RxNorm ARCELIA FAJARDO , SWATCH CLERK [address], [place], [address], [place] [facility] 9 12:57:27 45991 Avelox medicatio n Not available Not available Not available 06/15/2019 59716 6 RxNorm ARCELIA FAJARDO , SWATCH CLERK [address], [place], [address], [place] [facility] 9 12:57:34 11888 erythromy jaylon medicatio n Not available Not available Not available 06/15/2019 4053 RxNorm ARCELIA FAJARDO , SWATCH CLERK [address], [place], [address], [place] [facility] 9 12:57:41 15357 Zithromax medicatio n Not available Not available Not available 06/15/2019 14524 4 RxNorm ARCELIA FAJARDO , SWATCH CLERK [address], [place] [place], [address], [place] [facility] 9 12:57:51 13078 Levaquin medicatio n Not available Not available Not available 06/15/2019 77620 2 RxNorm ARCELIA FAJARDO , SWATCH CLERK [address], [place], [address], [place] [facility] 9 12:58:02 38716 Cipro medicatio n Not available Not available Not available 06/15/2019 08012 3 RxNorm ARCELIA FAJARDO , SWATCH CLERK [address], [place], [address], [place] [facility] 9 12:58:08 56896 morphine medicatio n Not available Not available Not available 06/15/2019 7052 RxNorm ARCELIA FAJARDO , SWATCH CLERK [address], [place], [address], [place] [facility] 9 12:58:20 85336 procaine hydrochlo ride medicatio n Not available Not available Not available 06/15/2019 47961 8 RxNorm ARCELIA FAJARDO , SWATCH CLERK [address], [place], [address], [place] [facility] 9 12:58:42 57025 barium sulfate medicatio n Not available Not available Not available 06/15/2019 1331 RxNorm ARCELIA FAJARDO , SWATCH CLERK [address], [place], [address], [place] [facility] 9 12:58:54 11454 Gastrogra fin medicatio n Not available Not available Not available 06/15/2019 42801 5 RxNorm ARCELIA FAJARDO , SWATCH CLERK [address], [place], [address], [place] [facility] 9 12:59:01 11067 Flagyl medicatio n Not available Not available Not available 06/15/201936906 6 RxNorm ARCELIA FAJARDO , ALON [address], [place], [address], [place] [facility] 9 12:59:06 09928 shrimp allergeni c extract food Not available Not available Not available 06/15/2019 86794 2 RxNorm ARCELIA FAJARDO , SWATCH CLERK [address], [place], [address], [place] [facility] [...] completed Not Available Not Available Not Available [facility] 100,000 unit/gram topical powder APPLY [...] [degF] 114 mm[Hg] 62 mm[Hg] Not Available [facility] 1 12:53:01 Date Recorded Respiratory rate Oxygen saturation Oxygen saturation in Arterial blood by Pulse oximetry Heart rate Body temperature Systolic blood pressure Diastolic blood pressure Provider Name and Address Organization Details Last Updated DateTime 2 18 /min 98 % 98 % 84 /min 98.9 [degF] 112 mm[Hg] 58 mm[Hg] Not Available [facility] 2 11:16:01 Date Recorded Heart rate Oxygen saturation Oxygen saturation in Arterial blood by Pulse oximetry Respiratory rate Body temperature Systolic blood pressure Diastolic blood pressure Systolic blood pressure Diastolic blood pressure Provider Name and Address Organization Details Last Updated DateTime 2 80 /min 96 % 96 % 18 /min 98.9 [degF] 142 mm[Hg] 66 mm[Hg] 128 mm[Hg] 60 mm[Hg] Not Available [facility] 2 20:16:17 Date Recorded Oxygen saturation Oxygen saturation in Arterial blood by Pulse oximetry Heart rate Respiratory rate Body temperature Systolic blood pressure Diastolic blood pressure Provider Name and Address Organization Details Last Updated DateTime 2 96 % 96 % 77 /min 18 /min 98.6 [degF] 122 mm[Hg] 60 mm[Hg] Not Available [facility] 2 13:41:00 Social History Question Answer Notes LastModified by Organizat ion Details LastModified Time Tobacco Smoking Status Never Smoker ARCELIA FAJARDO NP [address] [place], [address], [place] [facility] 06/15/2019 13:05:25 Do You Have An [...] SNOMED-CT Code Diagnosis ICD10 Code Diagnosis Note [id number] ARCELIA FAJARDO NP SPR - HOME [address] [facility] [place] [address] 06/15/2019 12:54:37 06/17/2019 13:06:33 Excoriation of skin 535335933 T14.8XXA [id number] JANIS GILBERT NP SPR - HOME [address] [place] [address] 11/13/2019 16:03:00 11/18/2019 14:53:37 Pain in lower limb 50855022 M79.661 [id number] ARCELIA FAJARDO NP SPR - HOME [address] [facility] [address] 03/14/2020 20:02:43 03/18/2020 21:30:46 Traumatic hematoma 951659039 T14.8XXA Long-term current use of anticoagulant 756899522 Z79.01 Pain in left foot 454534 7315 98778 M79.672 [id number] EMELIA TOMPKINS SPR - HOME [address] [place] [address] 03/20/2020 12:50:59 03/23/2020 17:54:28 Contusion of lower leg 06876906 S80.10XA Swelling of lower leg 44 8478874 R22.42 [id number] SPR - [facility] [address] [facility] [place] [address] 09/29/2020 11:41:21 09/29/2020 12:38:57 Pain of intercostal space 551885329 R07.82 Exposure t o communicable disease 787931222 Z20.822 [id number] Waleska Matos, SWATCH CLERK SPR - HOME [address] [facility] [place] [address] 02/11/2021 16:34:32 02/12/2021 11:08:44 Hematoma of lower leg 357833185 S80.11XA [id number] JAMES RADHA SWATCH CLERK SPR - HOME [address] [facility] [place] [address] 03/14/2021 12:45:30 03/19/2021 14:09:43 Abdominal pain 91581143 R10.9 [id number] EMELIA Alfonso SPR - HOME [address] [facility] [place] [address] 07/18/2021 10:56:56 07/22/2021 23:43:22 Constipation 91286315 K59.00 Left lower quadrant pain 271308484 R10.32 [id number] Cristine Sidhu NP SPR - HOME [address] [facility] [place] [address] 10/18/2021 19:17:00 11/10/2021 16:33:03 Left sided abdominal pain 271061333 R10.9 Hematoma of lower leg 44 5503700 S80.10XA Long-term current use of anticoagulant 656437072 Z79.01 [id number] Cristine Sidhu NP SPR - HOME [address] [facility] [place] [address] 12/29/2021 13:36:24 12/30/2021 10:20:27 Blood coagulation disorder 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 D68.61 D68.2 [id number] Olivia Goldberg SWATCH CLERK SPR - HOME [address] [facility] [place] [address] 01/18/2023 14:00:39 01/18/2023 15:01:49 Health Concerns Section Related Observation LastModified by Organization Detai ls LastModified Time None Recorded Concern Status LastModified by Organization Details LastModified Time None Recorded Advance Directives Directive Y: Payers Encounter Date Sequence Insurance Name Policy Number Policy Pettit Covered Member ID Pettit Member ID Guarantor Name 03/14/2021 1 [place] [employer] Jovana Malik [id number] Jovana Malik 03/14/2021 2 [place] [id number] Jovana Steinino [id number] Jovana Steinino 07/18/2021 1 [place] [facility] Jovana Malik [id number] Jovana Steinino 07/18/2021 2 [place] [id number] Jovana Steinino [id number] Jovana Steinino 10/18/2021 1 [place] [facility] SERVICES Jovana Steinino [id number] Jovana Helena 10/18/2021 2 [place] [id number] Jovana Steinino [id number] Jovana Steinino 12/29/2021 1 [place] [facility] SERVICES Jovana Malik [id number] Jovana [place] 12/29/2021 2 [facility]: ([place] [id number] Jovana Steinino [id number] Jovana Steinino 01/18/2023 1 [place] [facility] SERVICES Jovana Malik [id number] Jovana [place] 01/18/2023 2 [place] [employer] [place] [id number] Jovana Steinino [id number] Jovana Malik Notes Date Note Type Note Provider Name and Address Organization Details Recorded Time 1 text/html This is a 75-year-old female, [facility] to [facility], who calls with concerns for severe [...] intake. JAMES GARCIA NP [address], [place], [address], [place] [facility] 03/14/2021 13:21:32 2 text/html [...] asscociated sx's. EMELIA Ni [address], [place], [address], [place] [facility] 07/18/2021 12:04:00 2 text/html [...] evaluated. Cristine Sidhu NP [address], [place], [address], [place] [facility] 11/09/2021 02:11:05 2 text/html [...] reason with many of them being supernatural. Cristnie Sidhu NP [address], [place], [address], [place] [facility] 12/29/2021 14:43:53 3 text/html pt did not answer, visit canceled Olivia Goldberg NP [address], [place], [address], [place] [facility] 01/18/2023 19:34:36 OBGyn Episode No OBEpisode recorded.
--- OUTSIDE RECORDS SUMMARY | 2024-11-04 17:51 | XMS_ITS | Encounter Summary ---
Author Organization [facility] Address [address] [place] [address] Care Team Providers Care Business Process Manager Name Role Phone Caitlyn Bowie MD Primary Care Provider +1- [phone] Encounter Details Date Type Department Care Team (Late Contact Info) Description 02/02/2021 Scanned Document [facility] Health Information Management [address] [place] [address] External, Provider Social History Tobacco Use Types [...] [facility] [address] [facility] [address] [place], [place] [id number] Ronald Mills MD [address] [place] [address] [address] [place] [address] documented as of this encounter Visit Diagnoses Not on filedocumented in this encounter Additional Health Concerns Infection Onset Date Last Indicated Resolved Time COVID-19 03/05/2022 03/05/2022 03/15/2022 7:18 PM EDT Assessment Noted Time PHQ-9 Depression Total Score: 2 11/07/19 19 2:06 PM EDT documented as of this encounter Care Teams Business Process Manager Relationship Specialty Start Date End Date Caitlyn Bowie MD [address] [address] PCP - General Internal Medicine 05/06/21 documented as of this encounter
--- OUTSIDE RECORDS SUMMARY | 2024-11-04 17:51 | XMS_ITS | Encounter Summary ---
Author Organization [facility] Address [address] [place] [address] Care Team Providers Care Automation Analyst Name Role Phone Caitlyn Bowie MD Primary Care Provider +1- [phone] Reason for Visit * Reason Comments Other Encounter Details Date Type Department Care Team (Late st Contact Info) Description 01/12/2021 Telephone [facility] at [address] - [address] [phone] Ronald Mills MD [address] [place] [address] Other Social History Tobacco Use Types [...] AM EDT Lab orders were faxed to [facility] @ [phone]. Patient notified by phone. * Telephone Encounter - Kathleen Nasima - 01/12/2021 8:46 AM EDT Pt called looking to speak with Kirstin RE: lab orders sent to lab [facility] lab Looking to have labs sent there A.S.A.P at some point today She is scheduled with Dr. Mills on January 28 documented in this encounter Plan of Treatment Upcoming Encounters Date Type Department Care Team (Late st Contact Info) Description 04/25/2025 4:00 PM EDT Telemedicine [facility] [address] [facility] [address] [place], [place] [phone] Ronald Mills MD [address] [facility] [address] [place] [address] documented as of this encounter Visit Diagnoses Not on filedocumented in this encounter Additional Health Concerns Infection Onset Date Last Indicated Resolved Time COVID-19 03/05/2022 03/05/2022 03/15/2022 7:18 PM EDT Assessment Noted Time PHQ-9 Depression Total Score: 2 11/07/19 19 2:06 PM EDT documented as of this encounter Care Teams Automation Analyst Relationship Specialty Start Date End Date Caitlyn Bowie MD [address] [address] PCP - General Internal Medicine 05/06/21 documented as of this encounter
--- OUTSIDE RECORDS SUMMARY | 2024-11-04 17:51 | XMS_ITS | Encounter Summary ---
Author Organization [facility] Address [address] [place] [address] Care Team Providers Care Spray Painter Helper Name Role Phone Caitlyn Bowie MD Primary Care Provider +1- [phone] Encounter Details Date Type Department Care Team (Late st Contact Info) Description 02/02/2021 Scanned Document INTERFACE DEFAULT [address] [place] [address] System, Provider Not In Social History Tobacco [...] [facility] [address] [facility] [address] [place] [address] Ronald Mills MD [address] [place] [address] [address] [place] [address] documented as of this encounter [...] as of this encounter Care Teams Spray Painter Helper Relationship Specialty Start Date End Date Caitlyn Bowie MD [facility] [address] [address] PCP - General Internal Medicine 05/06/21 documented as of this encounter
--- OUTSIDE RECORDS SUMMARY | 2024-11-04 17:51 | XMS_ITS | Encounter Summary ---
Author Organization [facility] Address [address] [place] [address] Care Team Providers Care Functional Manager Name Role Phone Caitlyn Bowie MD Primary Care Provider +1- [phone] Encounter Details Date Type Department Care Team (Late st Contact Info) Description 11/09/2020 Scanned Document INTERFACE DEFAULT [address] [place] [address] System, Provider Not In Social History Tobacco [...] [facility] [address] [facility] [address] [place] [address] Ronald Mills MD [address] [place] [address] [address] [place] [address] documented as of this encounter Visit Diagnoses Not on filedocumented in this encounter Additional Health Concerns Infection Onset Date Last Indicated Resolved Time COVID-19 03/05/2022 03/05/2022 03/15/2022 7:18 PM EDT Assessment Noted Time PHQ-9 Depression Total Score: 2 11/07/19 19 2:06 PM EDT documented as of this encounter Care Teams Functional Manager Relationship Specialty Start Date End Date Caitlyn Bowie MD [address] [address] PCP - General Internal Medicine 05/06/21 documented as of this encounter
--- OUTSIDE RECORDS SUMMARY | 2024-11-04 17:51 | XMS_ITS | Encounter Summary ---
Author Organization [facility] Address [address] [place] [address] Care Team Providers Care Disposition Clerk Name Role Phone Caitlyn Bowie MD Primary Care Provider +1- [phone] Encounter Details Date Type Department Care Team (Late st Contact Info) Description 04/28/2015 Scanned Document [facility] Health Information Management [address] [place] [address] External, Provider Social History Tobacco Use Types [...] [facility] [address] [facility] [address] [place], [place] [phone] Ronald Mills MD [address] [facility] [address] [place] [address] documented as of this encounter Procedures Procedure Name Priority Date/Time Associated Diagnosis Comments LAB SCAN Routine 04/28/2015 documented in this encounter Results * Lab Scan (04/28/2015) Blood specimen (specimen) us Provider External LAB BLOOD ORDERABLES Edited Re sult - Final [facility] documented in this encounter Visit Diagnoses Not on filedocumented in this encounter Additional Health Concerns Infection Onset Date Last Indicated Resolved Time COVID-19 03/05/2022 03/05/2022 03/15/2022 7:18 PM EDT documented as of this encounter Care Teams Disposition Clerk Relationship Specialty Start Date End Date Caitlyn Bowie MD [address] [facility] 1 [place] [address] PCP - General Internal Medicine 05/06/21 Henry Kelly MD Pulmonary Department [address] [facility], [address] [place] [address] Physician Pulmonary Disease 09/06/17 06/22/20 documented as of this encounter
--- OUTSIDE RECORDS SUMMARY | 2024-11-04 17:51 | XMS_ITS | Encounter Summary ---
Author Organization [facility] Address [address] [place] [address] Care Team Providers Care Maintenance Engineer Name Role Phone Caitlyn Bowie MD Primary Care Provider +1- [phone] Encounter Details Date Type Department Care Team (Late st Contact Info) Description 01/07/2014 Documentation [facility] [address] [place] [address] Shilpi Ibarra [address] [place] [address] Social History Tobacco Use Types Packs/Day Years [...] from the original note were not included. [facility] Progress Note This is a 70 [...] [facility] [address] [facility] [address] [place], [place] [address] Ronald Mills MD [address] [place] [address] documented as of this encounter Visit Diagnoses Not on filedocumented in this encounter Additional Health Concerns Infection Onset Date Last Indicated Resolved Time COVID-19 03/05/2022 03/05/2022 03/15/2022 7:18 PM EDT documented as of this encounter Care Teams Maintenance Engineer Relationship Specialty Start Date End Date Caitlyn Bowie MD [address] [place] [address] PCP - General Internal Medicine 05/06/21 Henry Kelly MD Pulmonary Department [address] [facility], [address] [place] [address] Physician Pulmonary Disease 09/06/17 06/22/20 documented as of this encounter
--- OUTSIDE RECORDS SUMMARY | 2024-11-04 17:52 | XMS_ITS | Encounter Summary ---
Author Organization [facility] and [facility] Address [address] [place] [address] Care Team Providers Care Student Teaching Coordinator Name Role Phone Caitlyn Bowie MD Primary Care Provider +1- [phone] Encounter Details Date Type Department Care Team (Late st Contact Info) Description 02/19/2015 Scanned Document [facility] Health Information Management [address] [place] [address] External, Provider Social History Tobacco Use Types [...] at [facility] 240 [facility] [address] [place], [place] [id number] Ronald Mills MD 240 [facility] [address] [place] [address] documented as of this encounter Procedures Procedure Name Priority Date/Time Associated Diagnosis Comments LAB SCAN Routine 02/19/2015 documented in this encounter Results * Lab Scan (02/19/2015) Blood specimen (specimen) us Provider External LAB BLOOD ORDERABLES Final Res ult [facility] documented in this encounter Visit Diagnoses Not on filedocumented in this encounter Additional Health Concerns Infection Onset Date Last Indicated Resolved Time COVID-19 03/05/2022 03/05/2022 03/15/2022 7:18 PM EDT documented as of this encounter Care Teams Student Teaching Coordinator Relationship Specialty Start Date End Date Caitlyn Bowie MD 3400 [facility] 1 [place] [address] PCP - General Internal Medicine 05/06/21 Henry Kelly MD Pulmonary Department 175 [facility], [address] [place] [address] Physician Pulmonary Disease 09/06/17 06/22/20 documented as of this encounter
--- OUTSIDE RECORDS SUMMARY | 2024-11-04 17:52 | XMS_ITS | Encounter Summary ---
Author Organization [facility] and [facility] Address [address] [place] [address] Care Team Providers Care Sous Chef Name Role Phone Caitlyn Bowie MD Primary Care Provider +1- [phone] Encounter Details Date Type Department Care Team (Late st Contact Info) Description 07/26/2018 Scanned Document [facility] Health Information Management [address] [place] [address] External, Provider Social History Tobacco Use Types [...] [facility] Center at [facility] 240 [facility] Building [address] [place], [place] [address] Ronald Mills MD 240 [facility] [address] [place] [address] documented as of this encounter [...] documented as of this encounter Care Teams Sous Chef Relationship Specialty Start Date End Date Caitlyn Bowie MD 3400 [facility] 1 [place] [address] PCP - General Internal Medicine 05/06/21 Henry Kelly MD Pulmonary Department 175 [facility], [address] [place] [address] Physician Pulmonary Disease 09/06/17 06/22/20 documented as of this encounter
--- OUTSIDE RECORDS SUMMARY | 2024-11-04 17:52 | XMS_ITS | Encounter Summary ---
Author Organization [facility] and [facility] Address [address] [place] [address] Care Team Providers Care Heavy Duty Truck Mechanic Name Role Phone Caitlyn Bowie MD Primary Care Provider +1- [phone] Encounter Details Date Type Department Care Team (Late st Contact Info) Description 06/07/2021 Scanned Document Onco-Oncology Program at [address] [place] [address] Norma Renee MD [address] [place] [address] 2 [place] [address] Social History Tobacco Use Types [...] 4:00 PM EDT Telemedicine Cancer Center at [address] [place], [place] [address] Ronald Mills MD 240 [facility] A1 [place] [address] documented as of this encounter Visit Diagnoses Not on filedocumented in this encounter Additional Health Concerns Infection Onset Date Last Indicated Resolved Time COVID-19 03/05/2022 03/05/2022 03/15/2022 7:18 PM EDT Assessment Noted Time PHQ-9 Depression Total Score: 2 11/07/19 19 2:06 PM EDT documented as of this encounter Care Teams Heavy Duty Truck Mechanic Relationship Specialty Start Date End Date Caitlyn Bowie MD [address] [address] PCP - General Internal Medicine 05/06/21 documented as of this encounter
--- OUTSIDE RECORDS SUMMARY | 2024-11-04 17:52 | XMS_ITS | Encounter Summary ---
Author Organization [facility] and [facility] Address [address] [place] [address] Care Team Providers Care Night Time Nanny Name Role Phone Caitlyn Bowie MD Primary Care Provider +1- [phone] Encounter Details Date Type Department Care Team (Late st Contact Info) Description 01/27/2018 Scanned Document [facility] Health Information Management [address] [place] [address] External, Provider Social History Tobacco Use Types [...] Cancer Center at [facility] 240 [facility] Building [address] [place], [place] [id number] Ronald Mills MD 240 [facility] A1 [place] [address] documented as of this encounter Visit Diagnoses Not on filedocumented in this encounter Additional Health Concerns Infection Onset Date Last Indicated Resolved Time COVID-19 03/05/2022 03/05/2022 03/15/2022 7:18 PM EDT documented as of this encounter Care Teams Night Time Nanny Relationship Specialty Start Date End Date Caitlyn Bowie MD 3400 [facility] 1 [place] [address] PCP - General Internal Medicine 05/06/21 Henry Kelly MD Pulmonary Department 175 [facility], [address] [place] [address] Physician Pulmonary Disease 09/06/17 06/22/20 documented as of this encounter
--- OUTSIDE RECORDS SUMMARY | 2024-11-04 17:52 | XMS_ITS | Encounter Summary ---
Author Organization [facility] and [facility] Address [address] [place] [address] Care Team Providers Care Bituminous Paving Machine Operator Name Role Phone Caitlyn Bowie MD Primary Care Provider +1- [phone] Encounter Details Date Type Department Care Team (Late st Contact Info) Description 04/25/2021 Scanned Document INTERFACE DEFAULT [address] [place] [address] System, Provider Not In Social History Tobacco [...] Cancer Center at [facility] 240 [facility] Building [address] [place], [place] [address] Ronald Mills MD [address] [place] [address] [address] [place] [address] documented as of this encounter [...] documented as of this encounter Care Teams Bituminous Paving Machine Operator Relationship Specialty Start Date End Date Caitlyn Bowie MD [address] [address] PCP - General Internal Medicine 05/06/21 documented as of this encounter
--- OUTSIDE RECORDS SUMMARY | 2024-11-04 17:52 | XMS_ITS | Encounter Summary ---
Author Organization [facility] and [facility] Address [address] [place] [address] Care Team Providers Care Cardiovascular Tech Name Role Phone Caitlyn Bowie MD Primary Care Provider +1- [phone] Encounter Details Date Type Department Care Team (Late st Contact Info) Description 01/28/2018 Scanned Document [facility] Health Information Management [address] [place] [address] External, Provider Social History Tobacco Use Types [...] at [facility] 240 [facility] Building [address] [place], [place] [phone] Ronald Mills MD 240 [facility] A1 [place] [address] documented as of this encounter Visit Diagnoses Not on filedocumented in this encounter Additional Health Concerns Infection Onset Date Last Indicated Resolved Time COVID-19 03/05/2022 03/05/2022 03/15/2022 7:18 PM EDT documented as of this encounter Care Teams Cardiovascular Tech Relationship Specialty Start Date End Date Caitlyn Bowie MD 3400 [facility] 1 [place] [address] PCP - General Internal Medicine 05/06/21 Henry Kelly MD Pulmonary Department 175 [facility], [address] [place] [address] Physician Pulmonary Disease 09/06/17 06/22/20 documented as of this encounter
--- OUTSIDE RECORDS SUMMARY | 2024-11-04 17:52 | XMS_ITS | Encounter Summary ---
Author Organization [facility] and [facility] Address [address] [place] [address] Care Team Providers Care Meat Butcher Name Role Phone Caitlyn Bowie MD Primary Care Provider +1- [phone] Encounter Details Date Type Department Care Team (Late st Contact Info) Description 04/16/2018 Scanned Document [facility] Health Information Management [address] [place] [address] External, Provider Social History Tobacco Use Types [...] [facility] Building [address] [place], [place] [id number] Ronald Mills MD 240 [facility] A1 [place] [address] documented as of this encounter Visit Diagnoses Not on filedocumented in this encounter Additional Health Concerns Infection Onset Date Last Indicated Resolved Time COVID-19 03/05/2022 03/05/2022 03/15/2022 7:18 PM EDT documented as of this encounter Care Teams Meat Butcher Relationship Specialty Start Date End Date Caitlyn Bowie MD 3400 [facility] 1 [place] [address] PCP - General Internal Medicine 05/06/21 Henry Kelly MD Pulmonary Department 175 [facility], [address] [place] [address] Physician Pulmonary Disease 09/06/17 06/22/20 documented as of this encounter
--- OUTSIDE RECORDS SUMMARY | 2024-11-04 17:52 | XMS_ITS | Encounter Summary ---
Author Organization [facility] and [facility] Address [address] [place] [address] Care Team Providers Care County Library Director Name Role Phone Caitlyn Bowie MD Primary Care Provider +1- [phone] Encounter Details Date Type Department Care Team (Late st Contact Info) Description 06/07/2021 Scanned Document Cancer Center at [address] [address] External, Provider Social History Tobacco Use Types [...] [facility] Building [address] [place], [place] [address] Ronald Mills MD [address] [place] [address] [address] [place] [address] documented as of this encounter Visit Diagnoses Not on filedocumented in this encounter Additional Health Concerns Infection Onset Date Last Indicated Resolved Time COVID-19 03/05/2022 03/05/2022 03/15/2022 7:18 PM EDT Assessment Noted Time PHQ-9 Depression Total Score: 2 11/07/19 19 2:06 PM EDT documented as of this encounter Care Teams County Library Director Relationship Specialty Start Date End Date Caitlyn Bowie MD [address] [address] PCP - General Internal Medicine 05/06/21 documented as of this encounter
--- OUTSIDE RECORDS SUMMARY | 2024-11-04 17:52 | XMS_ITS | Encounter Summary ---
Author Organization [facility] and [facility] Address [address] [place] [address] Care Team Providers Care Buttonhole Tacker Name Role Phone Caitlyn Bowie MD Primary Care Provider +1- [phone] Encounter Details Date Type Department Care Team (Late st Contact Info) Description 07/28/2018 Scanned Document [facility] Health Information Management [address] [place] [address] External, Provider Social History Tobacco Use Types [...] [facility] 240 [facility] Building [address] [place], [place] [address] Ronald Mills MD 240 [facility] A1 [place] [address] documented as of this encounter [...] documented as of this encounter Care Teams Buttonhole Tacker Relationship Specialty Start Date End Date Caitlyn Bowie MD [facility] 1 [place] [address] PCP - General Internal Medicine 05/06/21 Henry Kelly MD Pulmonary Department 175 [facility], [address] [place] [address] Physician Pulmonary Disease 09/06/17 06/22/20 documented as of this encounter
--- OUTSIDE RECORDS SUMMARY | 2024-11-04 17:52 | XMS_ITS | Encounter Summary ---
Author Organization [facility] and [facility] Address [address] [place] [address] Care Team Providers Care Belt Fixer Name Role Phone Caitlyn Bowie MD Primary Care Provider +1- [phone] Encounter Details Date Type Department Care Team (Late st Contact Info) Description 07/30/2018 Scanned Document [facility] Health Information Management [address] [place] [address] External, Provider Social History Tobacco Use Types [...] [facility] 240 [facility] Building [address] [place], [place] [phone] Ronald Mills MD [address] [place] [address] [address] [place] [address] documented as of this encounter [...] as of this encounter Care Teams Belt Fixer Relationship Specialty Start Date End Date Caitlyn Bowie MD [facility] 1 [place] [address] PCP - General Internal Medicine 05/06/21 Henry Kelly MD Pulmonary Department 175 [facility], [address] [place] [address] Physician Pulmonary Disease 09/06/17 06/22/20 documented as of this encounter
--- OUTSIDE RECORDS SUMMARY | 2024-11-04 17:52 | XMS_ITS | Encounter Summary ---
Author Organization [facility] and [facility] Address [address] [place] [address] Care Team Providers Care Search Lead Name Role Phone Caitlyn Bowie MD Primary Care Provider +1- [phone] Encounter Details Date Type Department Care Team (Late st Contact Info) Description 06/07/2021 Scanned Document Onco-Oncology Program at [address] [place] [address] Norma Renee MD [address] [place] [address] 2 [place] [address] Social History Tobacco Use Types [...] 4:00 PM EDT Telemedicine Cancer Center at [address] [place], [place] [address] Ronald Mills MD 240 [facility] A1 [place] [address] documented as of this encounter Visit Diagnoses Not on filedocumented in this encounter Additional Health Concerns Infection Onset Date Last Indicated Resolved Time COVID-19 03/05/2022 03/05/2022 03/15/2022 7:18 PM EDT Assessment Noted Time PHQ-9 Depression Total Score: 2 11/07/19 19 2:06 PM EDT documented as of this encounter Care Teams Search Lead Relationship Specialty Start Date End Date Caitlyn Bowie MD [address] [address] PCP - General Internal Medicine 05/06/21 documented as of this encounter
--- OUTSIDE RECORDS SUMMARY | 2024-11-04 17:52 | XMS_ITS | Encounter Summary ---
Author Organization [facility] and [facility] Address [address] [place] [address] Care Team Providers Care Sustainability Communicator Name Role Phone Caitlyn Bowie MD Primary Care Provider +1- [phone] Encounter Details Date Type Department Care Team (Late st Contact Info) Description 04/28/2021 Scanned Document INTERFACE DEFAULT [address] [place] [address] System, Provider Not In Social History Tobacco [...] [facility] 240 [facility] Building [address] [place], [place] [address] Ronald Mills MD [address] [place] [address] [address] [place] [address] documented as of this encounter [...] as of this encounter Care Teams Sustainability Communicator Relationship Specialty Start Date End Date Caitlyn Bowie MD [address] [address] PCP - General Internal Medicine 05/06/21 documented as of this encounter
--- OUTSIDE RECORDS SUMMARY | 2024-11-04 17:52 | XMS_ITS | Encounter Summary ---
Author Organization [facility] and [facility] Address 20 [place] [address] Care Team Providers Care Remedial Reading Teacher Name Role Phone Caitlyn Bowie MD Primary Care Provider +1- [phone] Encounter Details Date Type Department Care Team (Late st Contact Info) Description 03/26/2015 Scanned Document Cardiovascular Medicine at [address] [place] [address] Norma Renee MD [address] [place] [phone] Social History Tobacco Use Types Packs/Day Years [...] 4:00 PM EDT Telemedicine Cancer Center at [address] [place], [place] [phone] Ronald Mills MD [address] [place] [address] [address]1 [place] [address] documented as of this encounter Visit Diagnoses Not on filedocumented in this encounter Additional Health Concerns Infection Onset Date Last Indicated Resolved Time COVID-19 03/05/2022 03/05/2022 03/15/2022 7:18 PM EDT documented as of this encounter Care Teams Remedial Reading Teacher Relationship Specialty Start Date End Date Caitlyn Bowie MD 3400 [facility] 1 [place] [address] PCP - General Internal Medicine 05/06/21 Henry Kelly MD Pulmonary Department 175 [facility], [address] [place] [address] Physician Pulmonary Disease 09/06/17 06/22/20 documented as of this encounter
--- OUTSIDE RECORDS SUMMARY | 2024-11-04 17:52 | XMS_ITS | Encounter Summary ---
Author Organization [facility] and [facility] Address [address] [place] [address] Care Team Providers Care Gravity Meter Observer Name Role Phone Caitlyn Bowie MD Primary Care Provider +1- [phone] Encounter Details Date Type Department Care Team (Late st Contact Info) Description 04/18/2018 Scanned Document [facility] Health Information Management [address] [place] [address] External, Provider Social History Tobacco Use Types [...] [facility] 240 [facility] Building [address] [place], [place] [address] Ronald Mills MD [address] [place] [address] [address]1 [place] [address] documented as of this encounter [...] documented as of this encounter Care Teams Gravity Meter Observer Relationship Specialty Start Date End Date Caitlyn Bowie MD 3400 [facility] 1 [place] [address] PCP - General Internal Medicine 05/06/21 Henry Kelly MD Pulmonary Department 175 [facility], [address] [place] [address] Physician Pulmonary Disease 09/06/17 06/22/20 documented as of this encounter
--- OUTSIDE RECORDS SUMMARY | 2024-11-04 17:52 | XMS_ITS | Encounter Summary ---
Author Organization [facility] Address [address] [place] [address] Care Team Providers Care Piping Drafter Name Role Phone Caitlyn Bowie MD Primary Care Provider +1- [phone] Encounter Details Date Type Department Care Team (Late st Contact Info) Description 08/07/2018 Scanned Document [facility] Health Information Management [address] [place] [address] External, Provider Social History Tobacco Use Types [...] [facility] Building [address] [place], [place] [address] Ronald Mills MD [address] [place] [address] [address] [place] [address] documented as of this encounter Visit Diagnoses Not on filedocumented in this encounter Additional Health Concerns Infection Onset Date Last Indicated Resolved Time COVID-19 03/05/2022 03/05/2022 03/15/2022 7:18 PM EDT documented as of this encounter Care Teams Piping Drafter Relationship Specialty Start Date End Date Caitlyn Bowie MD 3400 [facility] 1 [place] [address] PCP - General Internal Medicine 05/06/21 Henry Kelly MD Pulmonary Department 175 [facility], [address] [place] [address] Physician Pulmonary Disease 09/06/17 06/22/20 documented as of this encounter
--- OUTSIDE RECORDS SUMMARY | 2024-11-04 17:52 | XMS_ITS | Encounter Summary ---
Author Organization [facility] and [facility] Address [address] [place] [address] Care Team Providers Care Electrical Prospecting Observer Name Role Phone Caitlyn Bowie MD Primary Care Provider +1- [phone] Encounter Details Date Type Department Care Team (Late st Contact Info) Description 09/23/2021 Scanned Document INTERFACE DEFAULT [address] [place] [address] System, Provider Not In Social History Tobacco [...] [facility] 240 [facility] Building [address] [place], [place] [address] Ronald Mills MD [address] [place] [address] [address] [place] [address] documented as of this encounter [...] as of this encounter Care Teams Electrical Prospecting Observer Relationship Specialty Start Date End Date Caitlyn Bowie MD [address] [address] PCP - General Internal Medicine 05/06/21 documented as of this encounter
--- OUTSIDE RECORDS SUMMARY | 2024-11-04 17:52 | XMS_ITS | Encounter Summary ---
Author Organization [facility] Address [address] [place] [address] Care Team Providers Care Brick Dropper Name Role Phone Caitlyn Bowie MD Primary Care Provider +1- [phone] Encounter Details Date Type Department Care Team (Late st Contact Info) Description 01/26/2018 Scanned Document [facility] Health Information Management [address] [place] [address] External, Provider Social History Tobacco Use Types [...] [facility] 240 [facility] Building [address] [place] [address] Ronald Mills MD 240 [facility] A1 [place] [address] documented as of this encounter [...] as of this encounter Care Teams Brick Dropper Relationship Specialty Start Date End Date Caitlyn Bowie MD 3400 [facility] 1 [place] [address] PCP - General Internal Medicine 05/06/21 Henry Kelly MD Pulmonary Department 175 [facility], [address] [place] [address] Physician Pulmonary Disease 09/06/17 06/22/20 documented as of this encounter
--- OUTSIDE RECORDS SUMMARY | 2024-11-04 17:52 | XMS_ITS | Encounter Summary ---
Author Organization [facility] Address [address] [place] [address] Care Team Providers Care Senior Sql Developer Name Role Phone Caitlyn Bowie MD Primary Care Provider +1- [phone] Encounter Details Date Type Department Care Team (Late st Contact Info) Description 04/26/2021 Scanned Document INTERFACE DEFAULT [address] [place] [address] System, Provider Not In Social History Tobacco [...] [facility] 240 [facility] Building [address] [place], [place] [address] Ronald Mills MD [address] [place] [address] [address] [place] [address] documented as of this encounter [...] as of this encounter Care Teams Senior Sql Developer Relationship Specialty Start Date End Date Caitlyn Bowie MD [address] [address] PCP - General Internal Medicine 05/06/21 documented as of this encounter
--- OUTSIDE RECORDS SUMMARY | 2024-11-04 17:52 | XMS_ITS | Encounter Summary ---
Author Organization [facility] and [facility] Address [address] [place] [address] Care Team Providers Care Care Team Assistant Name Role Phone Caitlyn Bowie MD Primary Care Provider +1- [phone] Encounter Details Date Type Department Care Team (Late st Contact Info) Description 12/28/2021 Scanned Document INTERFACE DEFAULT [address] [place] [address] System, Provider Not In Social History Tobacco [...] Center at [facility] 240 [facility] [address] [place] [address] Ronald Mills MD [address] [place] [address] [address] [place] [address] documented as of this encounter Visit Diagnoses Not on filedocumented in this encounter Additional Health Concerns Infection Onset Date Last Indicated Resolved Time COVID-19 03/05/2022 03/05/2022 03/15/2022 7:18 PM EDT Assessment Noted Time PHQ-9 Depression Total Score: 2 11/07/19 19 2:06 PM EDT documented as of this encounter Care Teams Care Team Assistant Relationship Specialty Start Date End Date Caitlyn Bowie MD [address] [address] PCP - General Internal Medicine 05/06/21 documented as of this encounter
--- OUTSIDE RECORDS SUMMARY | 2024-11-04 17:52 | XMS_ITS | Encounter Summary ---
Author Organization [facility] and [facility] Address [address] [place] [address] Care Team Providers Care Geophysical Laboratory Supervisor Name Role Phone Caitlyn Bowie MD Primary Care Provider +1- [phone] Reason for Visit * Reason Comments Triage Encounter Details Date Type Department Care Team (Late st Contact Info) Description 10/18/2021 Telephone [facility] at [address] - [address] [phone] Ronald Mills MD [address] [place] [address] Triage Social History Tobacco Use Types [...] Center at [facility] [address] [facility] [address] [place], [place] [address] Ronald Mills MD 240 [facility] Max [address] [place] [phone] documented as of this encounter Visit Diagnoses Not on filedocumented in this encounter Additional Health Concerns Infection Onset Date Last Indicated Resolved Time COVID-19 03/05/2022 03/05/2022 03/15/2022 7:18 PM EDT Assessment Noted Time PHQ-9 Depression Total Score: 2 11/07/19 19 2:06 PM EDT documented as of this encounter Care Teams Geophysical Laboratory Supervisor Relationship Specialty Start Date End Date Cailtyn Bowie MD [address] [address] PCP - General Internal Medicine 05/06/21 documented as of this encounter
--- OUTSIDE RECORDS SUMMARY | 2024-11-04 17:52 | XMS_ITS | Encounter Summary ---
Author Organization [facility] and [facility] Address [address] [place] [address] Care Team Providers Care Underground Roof Bolter Name Role Phone Caitlyn Bowie MD Primary Care Provider +1- [phone] Encounter Details Date Type Department Care Team (Late st Contact Info) Description 05/17/2021 Scanned Document Cancer Center at [address] [address] External, Provider Social History Tobacco Use Types [...] [facility] Building [address] [place], [place] [phone] Ronald Mills MD [address] [place] [address] [address]1 [place] [address] documented as of this encounter [...] as of this encounter Care Teams Underground Roof Bolter Relationship Specialty Start Date End Date Caitlyn Bowie MD [address] [address] PCP - General Internal Medicine 05/06/21 documented as of this encounter
--- OUTSIDE RECORDS SUMMARY | 2024-11-04 17:52 | XMS_ITS | Encounter Summary ---
Author Organization [facility] and [facility] Address [address] [place] [address] Care Team Providers Care Director Financial Analysis Name Role Phone Caitlyn Bowie MD Primary Care Provider +1- [phone] Encounter Details Date Type Department Care Team (Late st Contact Info) Description 10/15/2018 Scanned Document [facility] Health Information Management [address] [place] [address] External, Provider Social History Tobacco Use Types [...] [facility] 240 [facility] Building [address] [place], [place] [phone] Ronald Mills MD [address] [place] [address] [address] [place] [address] documented as of this encounter Visit Diagnoses Not on filedocumented in this encounter Additional Health Concerns Infection Onset Date Last Indicated Resolved Time COVID-19 03/05/2022 03/05/2022 03/15/2022 7:18 PM EDT documented as of this encounter Care Teams Director Financial Analysis Relationship Specialty Start Date End Date Caitlyn Bowie MD 3400 [facility] 1 [place] [address] PCP - General Internal Medicine 05/06/21 Henry Kelly MD Pulmonary Department 175 [facility], [address] [place] [address] Physician Pulmonary Disease 09/06/17 06/22/20 documented as of this encounter
--- OUTSIDE RECORDS SUMMARY | 2024-11-04 17:52 | XMS_ITS | Encounter Summary ---
Author Organization [facility] and [facility] Address [address] [place] [address] Care Team Providers Care Insurance Underwriter Name Role Phone Caitlyn Bowie MD Primary Care Provider +1- [phone] Encounter Details Date Type Department Care Team (Late st Contact Info) Description 11/19/2021 Scanned Document Cardiovascular Medicine at [address]nd [place] [address] Norma Renee MD [address] [place] [address] Social History Tobacco Use Types Packs/Day [...] 4:00 PM EDT Telemedicine Cancer Center at [address] [place] [address] Ronald Mills MD 240 [facility] A1 [place] [address] documented as of this encounter Visit Diagnoses Not on filedocumented in this encounter Additional Health Concerns Infection Onset Date Last Indicated Resolved Time COVID-19 03/05/2022 03/05/2022 03/15/2022 7:18 PM EDT Assessment Noted Time PHQ-9 Depression Total Score: 2 11/07/19 19 2:06 PM EDT documented as of this encounter Care Teams Insurance Underwriter Relationship Specialty Start Date End Date Caitlyn Bowie MD [address] [address] PCP - General Internal Medicine 05/06/21 documented as of this encounter
--- OUTSIDE RECORDS SUMMARY | 2024-11-04 17:52 | XMS_ITS | Encounter Summary ---
Author Organization [facility] and [facility] Address [address] [place] [address] Care Team Providers Care Pasting Machine Operator Name Role Phone Caitlyn Bowie MD Primary Care Provider +1- [phone] Encounter Details Date Type Department Care Team (Late st Contact Info) Description 06/26/2018 Scanned Document [facility] Health Information Management [address] [place] [address] External, Provider Social History Tobacco Use Types [...] [facility] 240 [facility] Building [address] [place], [place] [phone] Ronald Mills MD 240 [facility] A1 [place] [address] documented as of this encounter Visit Diagnoses Not on filedocumented in this encounter Additional Health Concerns Infection Onset Date Last Indicated Resolved Time COVID-19 03/05/2022 03/05/2022 03/15/2022 7:18 PM EDT documented as of this encounter Care Teams Pasting Machine Operator Relationship Specialty Start Date End Date Caitlyn Bowie MD 3400 [facility] 1 [place] [address] PCP - General Internal Medicine 05/06/21 Henry Kelly MD Pulmonary Department 175 [facility], [address] [place] [address] Physician Pulmonary Disease 09/06/17 06/22/20 documented as of this encounter
--- OUTSIDE RECORDS SUMMARY | 2024-11-04 17:52 | XMS_ITS | Encounter Summary ---
Author Organization [facility] and [facility] Address [address] [place] [address] Care Team Providers Care Auger Machine Offbearer Name Role Phone Caitlyn Bowie MD Primary Care Provider +1- [phone] Encounter Details Date Type Department Care Team (Late st Contact Info) Description 10/08/2021 Scanned Document INTERFACE DEFAULT [address] [place] [address] System, Provider Not In Social History Tobacco [...] [facility] 240 [facility] Building [address] [place], [place] [address] Ronald Mills MD [address] [place] [address] [address] [place] [address] documented as of this encounter [...] documented as of this encounter Care Teams Auger Machine Offbearer Relationship Specialty Start Date End Date Caitlyn Bowie MD [address] [address] PCP - General Internal Medicine 05/06/21 documented as of this encounter
--- OUTSIDE RECORDS SUMMARY | 2024-11-04 17:52 | XMS_ITS | Encounter Summary ---
Author Organization [facility] and [facility] Address [address] [place] [address] Care Team Providers Care Job Order Clerk Name Role Phone Caitlyn Bowie MD Primary Care Provider +1- [phone] Reason for Visit * Reason Comments Advice Only Encounter Details Date Type Department Care Team ([facility] st Contact Info) Description 06/01/2021 Telephone [facility] at [address] [phone] Ronald Mills MD [address] [place] [address] Advice Only Social History Tobacco Use [...] added that she's called before and sent [employer] messages but hasn't received a reply,[phone]. documented in this encounter Plan of Treatment Upcoming Encounters Date Type Department Care Team (Late st Contact Info) Description 04/25/2025 4:00 PM EDT Telemedicine Cancer [facility] at [facility] 240 [facility] Building [address] [place], [place] [phone] Ronald Mlils MD 240 [facility] Max [address] [place] [phone] documented as of this encounter Visit Diagnoses Not on filedocumented in this encounter Additional Health Concerns Infection Onset Date Last Indicated Resolved Time COVID-19 03/05/2022 03/05/2022 03/15/2022 7:18 PM EDT Assessment Noted Time PHQ-9 Depression Total Score: 2 11/07/19 19 2:06 PM EDT documented as of this encounter Care Teams Job Order Clerk Relationship Specialty Start Date End Date Caitlyn Bowie MD 3400 [facility] 1 [place] [address] PCP - General Internal Medicine 05/06/21 documented as of this encounter
--- OUTSIDE RECORDS SUMMARY | 2024-11-04 17:52 | XMS_ITS | Encounter Summary ---
Author Organization [facility] and [facility] Address [address] [place] [address] Care Team Providers Care Sludge Filtration Operator Name Role Phone Caitlyn Bowie MD Primary Care Provider +1- [phone] Encounter Details Date Type Department Care Team (Late st Contact Info) Description 11/18/2021 Scanned Document INTERFACE DEFAULT [address] [place] [address] System, Provider Not In Social History Tobacco [...] Telemedicine Cancer Center at [facility] 240 [facility] Building [address] [place] [address] Ronald Mills MD [address] [place] [address] [address] [place] [address] documented as of this encounter Visit Diagnoses Not on filedocumented in this encounter Additional Health Concerns Infection Onset Date Last Indicated Resolved Time COVID-19 03/05/2022 03/05/2022 03/15/2022 7:18 PM EDT Assessment Noted Time PHQ-9 Depression Total Score: 2 11/07/19 19 2:06 PM EDT documented as of this encounter Care Teams Sludge Filtration Operator Relationship Specialty Start Date End Date Caitlyn Bowie MD [address] [address] PCP - General Internal Medicine 05/06/21 documented as of this encounter
--- OUTSIDE RECORDS SUMMARY | 2024-11-04 17:52 | XMS_ITS | Clinical Summary ---
Author Organization [facility] Address [address] [place] [address] Care Team Providers Care Director Mission Name Role Phone Caitlyn Bowie MD Primary Care Provider +1- [phone] Allergies Active Allergy Reactions Criticality Noted Date [...] Breath High 05/09/2008 Bronchospasm or Wheezing Ipratropium Ava Unknown/Patient and Family Unable to Define Medium [...] 1 capsule by mouth daily. Active B Nmlmidm-K-Ecein Acid (STRESS 500 B-COMPLEX PO) Take 1 [...] & B MEDICARE PART A & B [facility] Care Teams Director Mission Relationship Specialty Start Date End Date Caitlyn Bowie MD [address]00 [place] [address] PCP - General Internal Medicine 03/20/23
--- OUTSIDE RECORDS SUMMARY | 2024-11-04 17:52 | XMS_ITS | Encounter Summary ---
Author Organization [facility] and [facility] Address [address] [place] [address] Care Team Providers Care Manager Aerospace Name Role Phone Caitlyn Bowie MD Primary Care Provider +1- [phone] Encounter Details Date Type Department Care Team (Late st Contact Info) Description 04/24/2021 Scanned Document INTERFACE DEFAULT [address] [place] [address] System, Provider Not In Social History Tobacco [...] [facility] Building [address] [place], [place] [address] Ronald Mills MD [address] [place] [address] [address] [place] [address] documented as of this encounter [...] as of this encounter Care Teams Manager Aerospace Relationship Specialty Start Date End Date Caitlyn Bowie MD [address] [address] PCP - General Internal Medicine 05/06/21 documented as of this encounter
--- OUTSIDE RECORDS SUMMARY | 2024-11-04 17:52 | XMS_ITS | Encounter Summary ---
Author Organization [facility] and [facility] Address [address] [place] [address] Care Team Providers Care Prototype Sewer Name Role Phone Caitlyn Bowie MD Primary Care Provider +1- [phone] Encounter Details Date Type Department Care Team (Late st Contact Info) Description 06/08/2021 Scanned Document INTERFACE DEFAULT [address] [place] [address] System, Provider Not In Social History Tobacco [...] [facility] 240 [facility] Building [address] [place], [place] [phone] Ronald Mills MD [address] [place] [address] [address] [place] [address] documented as of this encounter [...] as of this encounter Care Teams Prototype Sewer Relationship Specialty Start Date End Date Caitlyn Bowie MD [address] [place] [address] PCP - General Internal Medicine 05/06/21 documented as of this encounter
--- OUTSIDE RECORDS SUMMARY | 2024-11-04 17:52 | XMS_ITS | Encounter Summary ---
Author Organization [facility] and [facility] Address [address] [place] [address] Care Team Providers Care President Sales And Marketing Name Role Phone Caitlyn Bowie MD Primary Care Provider +1- [phone] Encounter Details Date Type Department Care Team (Late st Contact Info) Description 09/24/2021 Scanned Document INTERFACE DEFAULT [address] [place] [address] System, Provider Not In Social History Tobacco [...] [facility] 240 [facility] Building [address] [place] [address] Ronald Mills MD [address] [place] [address] [address] [place] [address] documented as of this encounter [...] as of this encounter Care Teams President Sales And Marketing Relationship Specialty Start Date End Date Caitlyn Bowie MD [facility] [address] [address] PCP - General Internal Medicine 05/06/21 documented as of this encounter
--- OUTSIDE RECORDS SUMMARY | 2024-11-04 17:52 | XMS_ITS | Encounter Summary ---
Author Organization [facility] and [facility] Address [address] [place] [address] Care Team Providers Care Litigation Attorney Name Role Phone Caitlyn Bowie MD Primary Care Provider +1- [phone] Encounter Details Date Type Department Care Team (Late st Contact Info) Description 04/27/2021 Scanned Document INTERFACE DEFAULT [address] [place] [address] System, Provider Not In Social History Tobacco [...] [facility] 240 [facility] Building [address] [place], [place] [address] Ronald Mills MD [address] [place] [address] [address] [place] [address] documented as of this encounter [...] as of this encounter Care Teams Litigation Attorney Relationship Specialty Start Date End Date Caitlyn Bowie MD [address] [address] PCP - General Internal Medicine 05/06/21 documented as of this encounter
--- OUTSIDE RECORDS SUMMARY | 2024-11-04 17:52 | XMS_ITS | Encounter Summary ---
Author Organization [facility] and [facility] Address [address] [place] [address] Care Team Providers Care Account Coordinator Name Role Phone Caitlyn Bowie MD Primary Care Provider +1- [phone] Encounter Details Date Type Department Care Team (Late Contact Info) Description 11/18/2021 Scanned Document [facility] Health Information Management [address] [place] [address] External, Provider Social History Tobacco Use Types [...] [facility] 240 [facility] Building [address] [place], [place] [address] Ronald Mills MD [address] [place] [address] [address] [place] [address] documented as of this encounter Visit Diagnoses Not on filedocumented in this encounter Additional Health Concerns Infection Onset Date Last Indicated Resolved Time COVID-19 03/05/2022 03/05/2022 03/15/2022 7:18 PM EDT Assessment Noted Time PHQ-9 Depression Total Score: 2 11/07/19 19 2:06 PM EDT documented as of this encounter Care Teams Account Coordinator Relationship Specialty Start Date End Date Caitlyn Bowie MD [address] [address] PCP - General Internal Medicine 05/06/21 documented as of this encounter
--- OUTSIDE RECORDS SUMMARY | 2024-11-04 17:52 | XMS_ITS | Encounter Summary ---
Author Organization [facility] and [facility] Address [address] [place] [address] Care Team Providers Care Asp Net C Developer Name Role Phone Caitlyn Bowie MD Primary Care Provider +1- [phone] Encounter Details Date Type Department Care Team (Late st Contact Info) Description 02/01/2018 Scanned Document [facility] Health Information Management [address] [place] [address] External, Provider Social History Tobacco Use Types [...] Telemedicine Cancer Center at [facility] 240 [facility] Building [address] [place], [place] [address] Ronald Mills MD [address] [place] [address] [address]1 [place] [address] documented as of this encounter [...] documented as of this encounter Care Teams Asp Net C Developer Relationship Specialty Start Date End Date Caitlyn Bowie MD 3400 [facility] 1 [place] [address] PCP - General Internal Medicine 05/06/21 Henry Kelly MD Pulmonary Department 175 [facility], [address] [place] [address] Physician Pulmonary Disease 09/06/17 06/22/20 documented as of this encounter
--- OUTSIDE RECORDS SUMMARY | 2024-11-04 17:52 | XMS_ITS | Encounter Summary ---
Author Organization [facility] and [facility] Address [address] [place] [address] Care Team Providers Care Heel Finisher Name Role Phone Caitlyn Bwoie MD Primary Care Provider +1- [phone] Reason for Visit * Reason Comments FYI Encounter Details Date Type Department Care Team (Late st Contact Info) Description 05/24/2021 Telephone [facility] at [facility] at [address] [place] [address] 2nd [place], [place] [phone] Solo Henry MD [address] [place] [address] FYI Social History Tobacco Use Types [...] Cancer Center at [facility] 240 [facility] Building [address] [place] [address] Ronald Mills MD 240 [facility] Max [address]1 [place] [address] documented as of this encounter Visit Diagnoses Not on filedocumented in this encounter Additional Health Concerns Infection Onset Date Last Indicated Resolved Time COVID-19 03/05/2022 03/05/2022 03/15/2022 7:18 PM EDT Assessment Noted Time PHQ-9 Depression Total Score: 2 11/07/19 19 2:06 PM EDT documented as of this encounter Care Teams Heel Finisher Relationship Specialty Start Date End Date Caitlyn Bowie MD 3400 [facility] 1 [place] [address] PCP - General Internal Medicine 05/06/21 documented as of this encounter
--- OUTSIDE RECORDS SUMMARY | 2024-11-04 17:52 | XMS_ITS | Encounter Summary ---
Author Organization [facility] and [facility] Address [address] [place] [address] Care Team Providers Care Weaving Loom Operator Name Role Phone Caitlyn Bowie MD Primary Care Provider +1- [phone] Encounter Details Date Type Department Care Team (Late st Contact Info) Description 01/28/2018 Scanned Document [facility] Health Information Management [address] [place] [address] External, Provider Social History Tobacco Use Types [...] Cancer Center at [facility] 240 [facility] Building [address] [place], [place] [address] Ronald Mills MD [address] [place] [address] [address] [place] [address] documented as of this encounter [...] as of this encounter Care Teams Weaving Loom Operator Relationship Specialty Start Date End Date Caitlyn Bowie MD [facility] 1 [place] [address] PCP - General Internal Medicine 05/06/21 Henry Kelly MD Pulmonary Department 175 [facility], [address] [place] [address] Physician Pulmonary Disease 09/06/17 06/22/20 documented as of this encounter
--- OUTSIDE RECORDS SUMMARY | 2024-11-04 17:52 | XMS_ITS | Encounter Summary ---
Author Organization [facility] and [facility] Address [address] [place] [address] Care Team Providers Care Fiber Optic Technician Name Role Phone Caitlyn Bowie MD Primary Care Provider +1- [phone] Encounter Details Date Type Department Care Team (Late st Contact Info) Description 03/14/2018 Scanned Document [facility] Health Information Management [address] [place] [address] External, Provider Social History Tobacco Use Types [...] [facility] 240 [facility] Building [address] [place], [place] [phone] Ronald Mills MD [address] [place] [address] [address]1 [place] [address] documented as of this encounter [...] of this encounter Care Teams Fiber Optic Technician Relationship Specialty Start Date End Date Caitlyn Bowie MD 3400 [facility] 1 [place] [address] PCP - General Internal Medicine 05/06/21 Henry Kelly MD Pulmonary Department 175 [facility], [address] [place] [address] Physician Pulmonary Disease 09/06/17 06/22/20 documented as of this encounter
--- OUTSIDE RECORDS SUMMARY | 2024-11-04 17:52 | XMS_ITS | Encounter Summary ---
Author Organization [facility] and [facility] Address [address] [place] [address] Care Team Providers Care Lawnmower Repair Mechanic Name Role Phone Caitlyn Bowie MD Primary Care Provider +1- [phone] Encounter Details Date Type Department Care Team (Late Contact Info) Description 10/29/2021 Scanned Document [facility] Health Information Management [address] [place] [phone] External, Provider Social History Tobacco Use Types [...] Affairs [facility] 240 [facility] [address] [place], [place] [phone] Ronald Mills MD [address] [place] [address] [address] [place] [address] documented as of this encounter [...] documented as of this encounter Care Teams Lawnmower Repair Mechanic Relationship Specialty Start Date End Date Caitlyn Bowie MD [address] [address] PCP - General Internal Medicine 05/06/21 documented as of this encounter
--- OUTSIDE RECORDS SUMMARY | 2024-11-04 17:52 | XMS_ITS | Encounter Summary ---
Author Organization [facility] and [facility] Address [address] [place] [address] Care Team Providers Care Rounding And Backing Machine Operator Name Role Phone Caitlyn Bowie MD Primary Care Provider +1- [phone] Encounter Details Date Type Department Care Team (Late st Contact Info) Description 05/05/2021 Scanned Document INTERFACE DEFAULT [address] [place] [address] System, Provider Not In Social History Tobacco [...] at [facility] 240 [facility] [address] [place] [address] Ronald Mills MD [address] [place] [address] [address] [place] [address] documented as of this encounter Visit Diagnoses Not on filedocumented in this encounter Additional Health Concerns Infection Onset Date Last Indicated Resolved Time COVID-19 03/05/2022 03/05/2022 03/15/2022 7:18 PM EDT Assessment Noted Time PHQ-9 Depression Total Score: 2 11/07/19 19 2:06 PM EDT documented as of this encounter Care Teams Rounding And Backing Machine Operator Relationship Specialty Start Date End Date Caitlyn Bowie MD [address] [address] PCP - General Internal Medicine 05/06/21 documented as of this encounter
--- OUTSIDE RECORDS SUMMARY | 2024-11-04 17:52 | XMS_ITS | Encounter Summary ---
Author Organization [facility] and [facility] Address [address] [place] [address] Care Team Providers Care Product Support Engineer Name Role Phone Caitlyn Bowie MD Primary Care Provider +1- [phone] Encounter Details Date Type Department Care Team (Late st Contact Info) Description 12/04/2014 Scanned Document [facility] Health Information Management [address] [place] [address] External, Provider Social History Tobacco Use Types [...] [facility] 240 [facility] Building [address] [place], [place] [id number] Ronald Mills MD 240 [facility] [address] [place] [address] documented as of this encounter Procedures Procedure Name Priority Date/Time Associated Diagnosis Comments LAB SCAN Routine 12/04/2014 documented in this encounter Results * Lab Scan (12/04/2014) Blood specimen (specimen) us Provider External LAB BLOOD ORDERABLES Final Res ult [facility] documented in this encounter Visit Diagnoses Not on filedocumented in this encounter Additional Health Concerns Infection Onset Date Last Indicated Resolved Time COVID-19 03/05/2022 03/05/2022 03/15/2022 7:18 PM EDT documented as of this encounter Care Teams Product Support Engineer Relationship Specialty Start Date End Date Caitlyn Bowie MD 3400 [facility] 1 [place] [address] PCP - General Internal Medicine 05/06/21 Henry Kelly MD Pulmonary Department 175 [facility], [address] [place] [address] Physician Pulmonary Disease 09/06/17 06/22/20 documented as of this encounter
--- OUTSIDE RECORDS SUMMARY | 2024-11-04 17:52 | XMS_ITS | Encounter Summary ---
Author Organization [facility] and [facility] Address [address] [place] [address] Care Team Providers Care Lumber Piler Name Role Phone Caitlyn Bowie MD Primary Care Provider +1- [phone] Encounter Details Date Type Department Care Team (Late st Contact Info) Description 01/26/2018 Scanned Document [facility] Health Information Management [address] [place] [address] External, Provider Social History Tobacco Use Types [...] [facility] [address] [facility] Building [address] [place] [address] Ronald Mills MD [address] [place] [address] [address] [place] [address] documented as of this encounter [...] as of this encounter Care Teams Lumber Piler Relationship Specialty Start Date End Date Caitlyn Bowie MD 3400 [facility] 1 [place] [address] PCP - General Internal Medicine 05/06/21 Henry Kelly MD Pulmonary Department [address] [place] [address], [address] [place] [address] Physician Pulmonary Disease 09/06/17 06/22/20 documented as of this encounter
--- OUTSIDE RECORDS SUMMARY | 2024-11-04 17:52 | XMS_ITS | Encounter Summary ---
Author Organization [facility] and [facility] Address [address] [place] [address] Care Team Providers Care Pedorthist Name Role Phone Caitlyn Bowie MD Primary Care Provider +1- [phone] Encounter Details Date Type Department Care Team (Late st Contact Info) Description 04/03/2018 Scanned Document [facility] [address] [place] [phone] Provider, historical . Social History Tobacco Use [...] at [facility] 240 [facility] Building [address] [place], [place] [phone] Ronald Mills MD [address] [place] [address] [address] [place] [address] documented as [...] documented as of this encounter Care Teams Pedorthist Relationship Specialty Start Date End Date Caitlyn Bowie MD 3400 [facility] 1 [place] [address] PCP - General Internal Medicine 05/06/21 Henry Kelly MD Pulmonary Department 175 [facility], [address] [place] [address] Physician Pulmonary Disease 09/06/17 06/22/20 documented as of this encounter
--- OUTSIDE RECORDS SUMMARY | 2024-11-04 17:52 | XMS_ITS | Encounter Summary ---
Author Organization [facility] and [facility] Address [address] [place] [address] Care Team Providers Care Qa Automation Architect Name Role Phone Caitlyn Bowie MD Primary Care Provider +1- [phone] Encounter Details Date Type Department Care Team (Late st Contact Info) Description 01/26/2018 Scanned Document [facility] Health Information Management [address] [place] [address] External, Provider Social History Tobacco Use Types [...] [facility] 240 [facility] Building [address] [place], [place] [phone] Ronald Mills MD [address] [place] [address] [address] [place] [address] documented as of this encounter [...] documented as of this encounter Care Teams Qa Automation Architect Relationship Specialty Start Date End Date Caitlyn Bowie MD 3400 [facility] 1 [place] [address] PCP - General Internal Medicine 05/06/21 Henry Kelly MD Pulmonary Department 175 [facility], [address] [place] [address] Physician Pulmonary Disease 09/06/17 06/22/20 documented as of this encounter
--- OUTSIDE RECORDS SUMMARY | 2024-11-04 17:52 | XMS_ITS | Encounter Summary ---
Author Organization [facility] and [facility] Address [address] [place] [address] Care Team Providers Care Stem Maker Name Role Phone Caitlyn Bowie MD Primary Care Provider +1- [phone] Encounter Details Date Type Department Care Team (Late st Contact Info) Description 01/27/2018 Scanned Document [facility] Health Information Management [address] [place] [address] External, Provider Social History Tobacco Use Types [...] [facility] 240 [facility] Building [address] [place] [address] Ronald Mills MD 240 [facility] [address] [place] [address] documented as of this encounter [...] as of this encounter Care Teams Stem Maker Relationship Specialty Start Date End Date Caitlyn Bowie MD 3400 [facility] 1 [place] [address] PCP - General Internal Medicine 05/06/21 Henry Kelly MD Pulmonary Department 175 [facility], [address] [place] [address] Physician Pulmonary Disease 09/06/17 06/22/20 documented as of this encounter
--- OUTSIDE RECORDS SUMMARY | 2024-11-04 17:52 | XMS_ITS | Encounter Summary ---
Author Organization [facility] Address [address] [place] [address] Care Team Providers Care Labor Relations Worker Name Role Phone Caitlyn Bowie MD Primary Care Provider +1- [phone] Encounter Details Date Type Department Care Team (Late st Contact Info) Description 03/13/2015 Scanned Document [facility] Health Information Management [address] [place] [address] External, Provider Social History Tobacco Use Types [...] [facility] 240 [facility] Building [address] [place], [place] [address] Ronald Mills MD 240 [facility] Max [address] [place] [address] documented as of this encounter Procedures Procedure Name Priority Date/Time Associated Diagnosis Comments LAB SCAN Routine 02/16/2015 LAB SCAN Routine 02/16/2015 documented in this encounter Results * Lab Scan (02/16/2015) Blood specimen (specimen) us Provider External LAB BLOOD ORDERABLES Final Res ult Performing Organization Address [facility]/ZIP Co de Phone Number [facility] * Lab Scan (02/16/2015) Blood specimen (specimen) Provider External LAB BLOOD ORDERABLES Final Res ult Performing Organization Address [facility] Co de Phone Number [facility] documented in this encounter Visit Diagnoses Not on filedocumented in this encounter Additional Health Concerns Infection Onset Date Last Indicated Resolved Time COVID-19 03/05/2022 03/05/2022 03/15/2022 7:18 PM EDT documented as of this encounter Care Teams Labor Relations Worker Relationship Specialty Start Date End Date Caitlyn Bowie MD 3400 [facility] 1 [place] [address] PCP - General Internal Medicine 05/06/21 Henry Kelly MD Pulmonary Department 175 [facility], [address] [place] [address] Physician Pulmonary Disease 09/06/17 06/22/20 documented as of this encounter
--- OUTSIDE RECORDS SUMMARY | 2024-11-04 17:52 | XMS_ITS | Encounter Summary ---
Author Organization [facility] Address [address] [place] [address] Care Team Providers Care Laminator Hand Name Role Phone Caitlyn Bowie MD Primary Care Provider +1- [phone] Encounter Details Date Type Department Care Team (Late st Contact Info) Description 03/11/2015 Scanned Document [facility] Health Information Management [address] [place] [address] External, Provider Social History Tobacco Use Types [...] [facility] 240 [facility] Building [address] [place], [place] [phone] Ronald Mills MD 240 [facility] [address] [place] [address] documented as of this encounter Procedures Procedure Name Priority Date/Time Associated Diagnosis Comments LAB SCAN Routine 03/11/2015 documented in this encounter Results * Lab Scan (03/11/2015) Blood specimen (specimen) us Provider External LAB BLOOD ORDERABLES Edited Re sult - Final [facility] documented in this encounter Visit Diagnoses Not on filedocumented in this encounter Additional Health Concerns Infection Onset Date Last Indicated Resolved Time COVID-19 03/05/2022 03/05/2022 03/15/2022 7:18 PM EDT documented as of this encounter Care Teams Laminator Hand Relationship Specialty Start Date End Date Caitlyn Bowie MD 3400 [facility] 1 [place] [address] PCP - General Internal Medicine 05/06/21 Henry Kelly MD Pulmonary Department 175 [facility], [address] [place] [address] Physician Pulmonary Disease 09/06/17 06/22/20 documented as of this encounter
--- OUTSIDE RECORDS SUMMARY | 2024-11-04 17:52 | XMS_ITS | Encounter Summary ---
Author Organization [facility] and [facility] Address [address] [place] [address] Care Team Providers Care Charter And Tour Bus Driver Name Role Phone Caitlyn Bowie MD Primary Care Provider +1- [phone] Encounter Details Date Type Department Care Team (Late st Contact Info) Description 04/29/2021 Scanned Document INTERFACE DEFAULT [address] [place] [address] System, Provider Not In Social History Tobacco [...] at [facility] 240 [facility] Building [address] [place] [address] Ronald Mills MD [address] [place] [address] [address] [place] [address] documented as of this encounter [...] as of this encounter Care Teams Charter And Tour Bus Driver Relationship Specialty Start Date End Date Caitlyn Bowie MD [address] [phone] PCP - General Internal Medicine 05/06/21 documented as of this encounter
--- OUTSIDE RECORDS SUMMARY | 2024-11-04 17:52 | XMS_ITS | Encounter Summary ---
Author Organization [facility] and [facility] Address [address] [place] [address] Care Team Providers Care Manager Investment Banking Name Role Phone Caitlyn Bowie MD Primary Care Provider +1- [phone] Encounter Details Date Type Department Care Team (Late st Contact Info) Description 05/27/2021 Telephone [facility] at [address] [address] Ronald Mills MD [address] [place] [address] Social History Tobacco Use Types Packs/Day [...] [facility] 240 [facility] [address] [place], [place] [address] Ronald Mills MD 240 [facility] Max [address] [place] [address] documented as of this encounter Visit Diagnoses Not on filedocumented in this encounter Additional Health Concerns Infection Onset Date Last Indicated Resolved Time COVID-19 03/05/2022 03/05/2022 03/15/2022 7:18 PM EDT Assessment Noted Time PHQ-9 Depression Total Score: 2 11/07/19 19 2:06 PM EDT documented as of this encounter Care Teams Manager Investment Banking Relationship Specialty Start Date End Date Caitlyn Bowie MD [address] [address] PCP - General Internal Medicine 05/06/21 documented as of this encounter
--- OUTSIDE RECORDS SUMMARY | 2024-11-04 17:53 | XMS_ITS ---
Author Organization [facility] Address [address] [facility] [address] [place] [address] Care Team Providers Care Java Application Engineer Name Role Phone EVELIN RAMSAY Primary Care Provider Yenny Hou Unavailable [phone] Allergies Allergen (clinical drug ingredient) Drug/Non Drug [...] bedtime, 1/2 tab prn during the day [facility] 06/10/2014 Active Advair HFA 230-21MCG/ACT 2 Inhalation tw ice daily for -3 06/10/2014 Active EpiPen Active Meclizine HCl 25 MG 1 tablet as needed Orally [facility] 06/10/2014 Active Rosuvastatin Calcium 05/03/2024 Active predniSONE 2.5 MG Oral for 30 Active Singulair 10 MG 1 tablet Orally Once a day Active Metoprolol Succinate ER 50 MG 1 tablet Orally Once a day Active Synthroid 25MCG 1 ORAL daily for -3 [facility] 06/10/2014 Active Albuterol Sulfate (2.5 MG/3ML)0.083% [...] Encounters Encounter Location Date Provider Diagnosis Total [address] [place] [address] 07/09/2024 Yenny Lovettva Urgency of urination R39.15 [...] Notes * TONIE WATSONOB:1945 (79 yo F)Acc No.[id number]:07/09/2024 PROGRESS NOTES Patient:?SHIRLEY CINDA Appointment Provider:?Yenny doan M.D. :1945???Age:79 Y???Sex:Female D ate:07/09/2024 Address:[address] [place] [address], [facility] Pcp:EVELIN RAMSAY Subjective: * Chief Complaints: * [...] ODORED DISCHARGE.?no?skin complaints.? * Medical History:? * Neighborhood Aide History:?/ Para?2/2.?Sexual activity?not currently sexually active.?Last Pap [...] mm Hg, Temp: 98.0 F. * Examination: ???BIG DATA SOLUTIONS ARCHITECT exam: ?EXTERNAL GENITALIA:?Normal female. No lesions, erythema [...] Elizalde M.D. Date:?07/09/2024 Generated for Arely paige/Sebastian/Zacheryitting on:?11/04/2024 05:52 PM EDT History and Physical Notes * [...] Category Sub-Category Detail Notes Category Not es BIG DATA SOLUTIONS ARCHITECT exam CERVIX: surgically absent VAGINA: atrophic changes, er ythematous with yellow white discharge, pH>4.5, +whiff test EXTERNAL GENITALIA: Normal female. No le sions, erythema or discharge UTERUS: absent ADNEXA: surgically absent
--- OUTSIDE RECORDS SUMMARY | 2024-11-04 17:53 | XMS_ITS | Encounter Summary ---
Author Organization [facility] and [facility] Address [address] [place] [address] Care Team Providers Care Sprayer Machine Name Role Phone Caitlyn Bowie MD Primary Care Provider +1- [phone] Encounter Details Date Type Department Care Team (Late st Contact Info) Description 04/13/2023 Scanned Document INTERFACE DEFAULT [address] [place] [address] System, Provider Not In Social History Tobacco [...] [facility] 240 [facility] Building [address] [place] [address] Ronald Mills MD [address] [place] [address] [address] [place] [address] documented as of this encounter [...] as of this encounter Care Teams Sprayer Machine Relationship Specialty Start Date End Date Caitlyn Bowie MD [address] [address] PCP - General Internal Medicine 05/06/21 documented as of this encounter
--- OUTSIDE RECORDS SUMMARY | 2024-11-04 17:53 | XMS_ITS | Encounter Summary ---
Author Organization [facility] and [facility] Address [address] [place] [address] Care Team Providers Care Schedule Checker Name Role Phone Caitlyn Bowie MD Primary Care Provider +1- [phone] Encounter Details Date Type Department Care Team (Late st Contact Info) Description 06/24/2022 Scanned Document INTERFACE DEFAULT [address] [place] [address] System, Provider Not In Social History Tobacco [...] [facility] 240 [facility] Building [address] [place], [place] [address] Ronald Mills MD [address] [place] [address] [address] [place] [address] documented as of this encounter [...] documented as of this encounter Care Teams Schedule Checker Relationship Specialty Start Date End Date Caitlyn Bowie MD [address] [address] PCP - General Internal Medicine 05/06/21 documented as of this encounter
--- OUTSIDE RECORDS SUMMARY | 2024-11-04 17:53 | XMS_ITS | Encounter Summary ---
Author Organization [facility] and [facility] Address [address] [place] [address] Care Team Providers Care Gauge Controller Name Role Phone Caitlyn Bowie MD Primary Care Provider +1- [phone] Encounter Details Date Type Department Care Team (Late st Contact Info) Description 06/21/2022 Scanned Document INTERFACE DEFAULT [address] [place] [address] System, Provider Not In Social History Tobacco [...] at [facility] 240 [facility] Building [address] [place], [place] [address] Ronald Mills MD [address] [place] [address] [address] [place] [address] documented as of this encounter [...] documented as of this encounter Care Teams Gauge Controller Relationship Specialty Start Date End Date Caitlyn Bowie MD [address] [address] PCP - General Internal Medicine 05/06/21 documented as of this encounter
--- OUTSIDE RECORDS SUMMARY | 2024-11-04 17:53 | XMS_ITS | Encounter Summary ---
Author Organization [facility] and [facility] Address [address] [place] [address] Care Team Providers Care Analyst Programmer Name Role Phone Caitlyn Bowie MD Primary Care Provider +1- [phone] Encounter Details Date Type Department Care Team (Late st Contact Info) Description 07/28/2022 Scanned Document Onco-Oncology Program at [address] [place] [address] Norma Renee MD [address] [place] [address] 2 [place] [address] Social History Tobacco Use Types [...] PM EDT Telemedicine Cancer Center at [address] [place], [place] [address] Ronald Mills MD 240 [facility] A1 [place] [address] documented as of this encounter Visit Diagnoses Not on filedocumented in this encounter Additional Health Concerns Assessment Noted Time PHQ-9 Depression Total Score: 2 11/07/19 19 2:06 PM EDT documented as of this encounter Care Teams Analyst Programmer Relationship Specialty Start Date End Date Caitlyn Bowie MD [address] [address] PCP - General Internal Medicine 05/06/21 documented as of this encounter
--- OUTSIDE RECORDS SUMMARY | 2024-11-04 17:53 | XMS_ITS | Encounter Summary ---
Author Organization [facility] and [facility] Address [address] [place] [address] Care Team Providers Care Apparatus Operator Name Role Phone Caitlyn Bowie MD Primary Care Provider +1- [phone] Encounter Details Date Type Department Care Team (Late st Contact Info) Description 06/27/2022 Scanned Document INTERFACE DEFAULT [address] [place] [address] System, Provider Not In Social History Tobacco [...] [facility] 240 [facility] Building [address] [place], [place] [address] Ronald Mills MD [address] [place] [address] [address] [place] [address] documented as of this encounter [...] documented as of this encounter Care Teams Apparatus Operator Relationship Specialty Start Date End Date Caitlyn Bowie MD [facility] [address] [address] PCP - General Internal Medicine 05/06/21 documented as of this encounter
--- OUTSIDE RECORDS SUMMARY | 2024-11-04 17:53 | XMS_ITS | Encounter Summary ---
Author Organization [facility] and [facility] Address [address] [place] [address] Care Team Providers Care Grain Mill Worker Name Role Phone Caitlyn Bowie MD Primary Care Provider +1- [phone] Encounter Details Date Type Department Care Team (Late st Contact Info) Description 09/28/2015 Scanned Document [facility] Health Information Management [address] [place] [address] External, Provider Social History Tobacco Use Types [...] [facility] 240 [facility] [address] [place], [place] [phone] Ronald Mills MD 240 [facility] [address] [place] [address] documented as of this encounter Procedures Procedure Name Priority Date/Time Associated Diagnosis Comments LAB SCAN Routine 09/09/2015 documented in this encounter Results * Lab Scan (09/09/2015) Blood specimen (specimen) us Provider External LAB BLOOD ORDERABLES Final Res ult [facility] documented in this encounter Visit Diagnoses Not on filedocumented in this encounter Additional Health Concerns Infection Onset Date Last Indicated Resolved Time COVID-19 03/05/2022 03/05/2022 03/15/2022 7:18 PM EDT documented as of this encounter Care Teams Grain Mill Worker Relationship Specialty Start Date End Date Caitlyn Bowie MD 3400 [facility] 1 [place] [address] PCP - General Internal Medicine 05/06/21 Henry Kelly MD Pulmonary Department 175 [facility], [address] [place] [address] Physician Pulmonary Disease 09/06/17 06/22/20 documented as of this encounter
--- OUTSIDE RECORDS SUMMARY | 2024-11-04 17:53 | XMS_ITS | Encounter Summary ---
Author Organization [facility] and [facility] Address [address] [place] [address] Care Team Providers Care Master Steam Yacht Name Role Phone Caitlyn Bowie MD Primary Care Provider +1- [phone] Encounter Details Date Type Department Care Team (Late st Contact Info) Description 12/04/2018 Scanned Document [facility] Health Information Management [address] [place] [address] External, Provider Social History Tobacco Use Types [...] [facility] 240 [facility] [address] [place], [place] [phone] Ronald Mills MD [address] [place] [address] [address] [place] [address] documented as of this encounter Visit Diagnoses Not on filedocumented in this encounter Additional Health Concerns Infection Onset Date Last Indicated Resolved Time COVID-19 03/05/2022 03/05/2022 03/15/2022 7:18 PM EDT Assessment Noted Time PHQ-9 Depression Total Score: 2 11/07/19 19 2:06 PM EDT documented as of this encounter Care Teams Master Steam Yacht Relationship Specialty Start Date End Date Caitlyn Bowie MD 3400 [facility] Max 1 [place] [address] PCP - General Internal Medicine 05/06/21 Henry Kelly MD Pulmonary Department 175 [facility], [address] [place] [address] Physician Pulmonary Disease 09/06/17 06/22/20 documented as of this encounter
--- OUTSIDE RECORDS SUMMARY | 2024-11-04 17:53 | XMS_ITS | Encounter Summary ---
Author Organization [facility] and [facility] Address [address] [place] [address] Care Team Providers Care Wool Dyer Name Role Phone Caitlyn Bowie MD Primary Care Provider +1- [phone] Encounter Details Date Type Department Care Team (Late st Contact Info) Description 07/22/2021 Scanned Document INTERFACE DEFAULT [address] [place] [address] System, Provider Not In Social History Tobacco [...] [facility] 240 [facility] Building [address] [place], [place] [address] Ronald Mills MD [address] [place] [address] [address] [place] [address] documented as of this encounter [...] as of this encounter Care Teams Wool Dyer Relationship Specialty Start Date End Date Caitlyn Bowie MD [address] [address] PCP - General Internal Medicine 05/06/21 documented as of this encounter
--- OUTSIDE RECORDS SUMMARY | 2024-11-04 17:53 | XMS_ITS | Encounter Summary ---
Author Organization [facility] and [facility] Address [address] [place] [address] Care Team Providers Care Treating Plant Supervisor Name Role Phone Caitlyn Bowie MD Primary Care Provider +1- [phone] Encounter Details Date Type Department Care Team (Late st Contact Info) Description 06/28/2022 Scanned Document INTERFACE DEFAULT [address] [place] [address] System, Provider Not In Social History Tobacco [...] [facility] 240 [facility] Building [address] [place], [place] [phone] Ronald Mills MD [address] [place] [address] [address] [place] [address] documented as of this encounter [...] documented as of this encounter Care Teams Treating Plant Supervisor Relationship Specialty Start Date End Date Caitlyn Bowie MD [address] [address] PCP - General Internal Medicine 05/06/21 documented as of this encounter
--- OUTSIDE RECORDS SUMMARY | 2024-11-04 17:53 | XMS_ITS | Encounter Summary ---
Author Organization [facility] and [facility] Address [address] [place] [address] Care Team Providers Care Intelligence Senior Sergeant Name Role Phone Caitlyn Bowie MD Primary Care Provider +1- [phone] Encounter Details Date Type Department Care Team (Late st Contact Info) Description 09/09/2015 Scanned Document [facility] Health Information Management [address] [place] [address] External, Provider Social History Tobacco Use Types [...] [facility] 240 [facility] Building [address] [place], [place] [phone] Ronald Mills MD 240 [facility] Max [address] [place] [address] documented as of this encounter Procedures Procedure Name Priority Date/Time Associated Diagnosis Comments LAB SCAN Routine 09/09/2015 documented in this encounter Results * Lab Scan (09/09/2015) Blood specimen (specimen) us Provider External LAB BLOOD ORDERABLES Final Res ult [facility] documented in this encounter Visit Diagnoses Not on filedocumented in this encounter Additional Health Concerns Infection Onset Date Last Indicated Resolved Time COVID-19 03/05/2022 03/05/2022 03/15/2022 7:18 PM EDT documented as of this encounter Care Teams Intelligence Senior Sergeant Relationship Specialty Start Date End Date Caitlyn Bowie MD [address] [facility] 1 [place] [address] PCP - General Internal Medicine 05/06/21 Henry Kelly MD Pulmonary Department 175 [facility], [address] [place] [address] Physician Pulmonary Disease 09/06/17 06/22/20 documented as of this encounter
--- OUTSIDE RECORDS SUMMARY | 2024-11-04 17:53 | XMS_ITS | Encounter Summary ---
Author Organization [facility] and [facility] Address [address] [place] [address] Care Team Providers Care Research Dietitian Name Role Phone Caitlyn Bowie MD Primary Care Provider +1- [phone] Encounter Details Date Type Department Care Team (Late st Contact Info) Description 08/28/2015 Scanned Document [facility] Health Information Management [address] [place] [address] External, Provider Social History Tobacco Use Types [...] [facility] 240 [facility] Building [address] [place], [place] [phone] Ronald Mills MD 240 [facility] A1 [place] [address] documented as of this encounter Visit Diagnoses Not on filedocumented in this encounter Additional Health Concerns Infection Onset Date Last Indicated Resolved Time COVID-19 03/05/2022 03/05/2022 03/15/2022 7:18 PM EDT documented as of this encounter Care Teams Research Dietitian Relationship Specialty Start Date End Date Caitlyn Bowie MD 3400 [facility] 1 [place] [address] PCP - General Internal Medicine 05/06/21 Henry Kelly MD Pulmonary Department 175 [facility], [address] [place] [address] Physician Pulmonary Disease 09/06/17 06/22/20 documented as of this encounter
--- OUTSIDE RECORDS SUMMARY | 2024-11-04 17:53 | XMS_ITS | Encounter Summary ---
Author Organization [facility] and [facility] Address [address] [place] [address] Care Team Providers Care Customer Success Intern Name Role Phone Caitlyn Bowie MD Primary Care Provider +1- [phone] Encounter Details Date Type Department Care Team (Late st Contact Info) Description 09/09/2015 Scanned Document [facility] Health Information Management [address] [place] [address] External, Provider Social History Tobacco Use Types [...] [facility] 240 [facility] Building [address] [place], [place] [id number] Ronald Mills MD 240 [facility] Max [address] [place] [address] documented as of this encounter Procedures Procedure Name Priority Date/Time Associated Diagnosis Comments LAB SCAN Routine 09/09/2015 documented in this encounter Results * Lab Scan (09/09/2015) Blood specimen (specimen) us Provider External LAB BLOOD ORDERABLES Final Res ult [facility] documented in this encounter Visit Diagnoses Not on filedocumented in this encounter Additional Health Concerns Infection Onset Date Last Indicated Resolved Time COVID-19 03/05/2022 03/05/2022 03/15/2022 7:18 PM EDT documented as of this encounter Care Teams Customer Success Intern Relationship Specialty Start Date End Date Caitlyn Bowie MD 3400 [facility] 1 [place] [address] PCP - General Internal Medicine 05/06/21 Henry Kelly MD Pulmonary Department 175 [facility], [address] [place] [address] Physician Pulmonary Disease 09/06/17 06/22/20 documented as of this encounter
--- OUTSIDE RECORDS SUMMARY | 2024-11-04 17:53 | XMS_ITS | Encounter Summary ---
Author Organization [facility] Address [address] [place] [address] Care Team Providers Care Human Services Assistant Name Role Phone Pcp, No Primary Care Provider Brennan Mario MD Primary Care Provider [phone] Caitlyn Bowie MD Primary Care Provider +1- [phone] Encounter Details Date Type Department Care Team (Late st Contact Info) Description 01/04/2022 Scanned Document [facility] Neurology Ophthalmology [address] [address] Yary Whitten DO [address] [place] [address] Social History Tobacco Use Types Packs/Day [...] on filedocumented in this encounter Care Teams Human Services Assistant Relationship Specialty Start Date End Date Pcp, No PCP - General General Medicine 10/04/21 07/18/22 Brennan Burnett MD [address] [place] [address] PCP - General 07/19/22 03/19/23 Caitlyn Bowie MD 3400 [place] [address] PCP - General Internal Medicine 03/20/23 documented as of this encounter
--- OUTSIDE RECORDS SUMMARY | 2024-11-04 17:53 | XMS_ITS | Encounter Summary ---
Author Organization [facility] Address [address] [place] [address] Phone Care Team Providers Care Firewall Engineer Name Role Phone Caitlyn Bowie MD Primary Care Provider +1- [phone] Encounter Details Date Type Department Care Team (Late st Contact Info) Description 10/10/2024 Documentation Only [facility] [address] [place] [address] [place], [place] [address] [place] [address] Social History Tobacco Use Types [...] [facility] [address] [place] [address] Rubén Ashraf MD [address] [place] [address] [place] [address] documented as of this encounter Visit Diagnoses Not on filedocumented in this encounter Care Teams Firewall Engineer Relationship Specialty Start Date End Date Caitlyn Bowie MD [address] [place], [place] PCP - General Internal Medicine 09/24/24 documented as of this encounter
--- OUTSIDE RECORDS SUMMARY | 2024-11-04 17:53 | XMS_ITS | Encounter Summary ---
Author Organization [facility] Address [address] [place] [address] Care Team Providers Care Area Director Name Role Phone Caitlyn Bowie MD Primary Care Provider +1- [phone] Encounter Details Date Type Department Care Team (Late st Contact Info) Description 06/20/2022 Scanned Document INTERFACE DEFAULT [address] [place] [address] System, Provider Not In Social History Tobacco [...] [facility] 240 [facility] Building [address] [place], [place] [address] Ronald Mills MD [address] [place] [address] [address] [place] [address] documented as of this encounter [...] as of this encounter Care Teams Area Director Relationship Specialty Start Date End Date Caitlyn Bowie MD [facility] [address] [address] PCP - General Internal Medicine 05/06/21 documented as of this encounter
--- OUTSIDE RECORDS SUMMARY | 2024-11-04 17:53 | XMS_ITS | Encounter Summary ---
Author Organization [facility] and [facility] Address [address] [place] [address] Care Team Providers Care Outdoor Education Teacher Name Role Phone Caitlyn Bowie MD Primary Care Provider +1- [phone] Encounter Details Date Type Department Care Team (Late st Contact Info) Description 05/10/2022 Scanned Document Cardiovascular Medicine at [address] [place] [phone] Norma Renee MD [address] [place] [phone] Social History Tobacco Use Types Packs/Day Years [...] 4:00 PM EDT Telemedicine Cancer Center at [address] [place] [address] Ronald Mills MD [address] [place] [address] [address]1 [place] [address] documented as of this encounter Visit Diagnoses Not on filedocumented in this encounter Additional Health Concerns Assessment Noted Time PHQ-9 Depression Total Score: 2 11/07/19 19 2:06 PM EDT documented as of this encounter Care Teams Outdoor Education Teacher Relationship Specialty Start Date End Date Caitlyn Bowie MD [address] [address] PCP - General Internal Medicine 05/06/21 documented as of this encounter
--- OUTSIDE RECORDS SUMMARY | 2024-11-04 17:53 | XMS_ITS | Encounter Summary ---
Author Organization [facility] and [facility] Address [address] [place] [address] Care Team Providers Care Assembly Line Leader Name Role Phone Caitlyn Bowie MD Primary Care Provider +1- [phone] Encounter Details Date Type Department Care Team (Late st Contact Info) Description 04/28/2022 Scanned Document INTERFACE DEFAULT [address] [place] [address] System, Provider Not In Social History [...] [facility] 240 [facility] Building [address] [place], [place] [address] Ronald Mills MD [address] [place] [address] [address] [place] [address] documented as of this encounter [...] of this encounter Care Teams Assembly Line Leader Relationship Specialty Start Date End Date Caitlyn Bowie MD [facility] [address] [address] PCP - General Internal Medicine 05/06/21 documented as of this encounter
--- OUTSIDE RECORDS SUMMARY | 2024-11-04 17:53 | XMS_ITS ---
Author Organization [facility] Address 46 [facility] [address] [place] [address] Care Team Providers Care Car Oiler Name Role Phone EVELIN RAMSAY Primary Care Provider Yenny Hou Unavailable [phone] Allergies Allergen (clinical drug ingredient) Drug/Non Drug [...] bedtime, 1/2 tab prn during the day [facility] 06/10/2014 Active traZODone HCl 50MG 1 ORAL at bedtime fo r -3 [facility] 06/10/2014 Active Meclizine HCl 25 MG 1 tablet as needed Orally [facility] 06/10/2014 Active Advair HFA 230-21MCG/ACT 2 [...] Synthroid 25MCG 1 ORAL daily for -3 [facility] 06/10/2014 Active Singulair 10 MG 1 [...] 07/18/2024 Encounters Encounter Location Date Provider Diagnosis [address] [place] [address] 07/18/2024 Yenny Elizalde Encounter for screening mammogram [...] Notes * TONIE WATSONOB:1945 (79 yo F)Acc No.[id number]:07/18/2024 PROGRESS NOTES Patient:?CINDA WATSON Appointment Provider:?Yenny doan M.D. :1945???Age:79 Y???Sex:Female D ate:07/18/2024 Address:[address] [place] [address] Pcp:EVELIN RAMSAY Subjective: * Chief Complaints: * ???LT BREAST PAIN * HPI: ???New/Follow-up Patient Consult:? PAT C/O LEFT BREAST DISCOMFORT OF A FEW DAYS DURATION.? NO NIPPLE DISCHARGE, NO PALPABLE MASSES.? HER LAST MAMMOGRAM DONE IN AUG 2023 WAS NORMAL. * ROS:?general:?no?chest pain.?no?palpitations.?no?headache.?no?cough.?no?shortness of breath.?no?fever.?no?unexplained weight loss.?no?nausea/vomiting.?no?change in bowel movements.?no blood in stool.?no?genitourinary complaints.?no?skin complaints.? * Medical History:? * Watch Electrician History:?/ Para?2/2.?Sexual activity?not currently sexually active.?Last Pap [...] Elizalde M.D. Date:?07/18/2024 Generated for Arely paige/Sebastian/Brandonsmitting on:?11/04/2024 05:53 PM EDT History and Physical Notes * [...]
--- OUTSIDE RECORDS SUMMARY | 2024-11-04 17:53 | XMS_ITS | Encounter Summary ---
Author Organization [facility] Address [address] [place] [address] Care Team Providers Care Male Infertility Specialist Name Role Phone Caitlyn Bowie MD Primary Care Provider +1- [phone] Encounter Details Date Type Department Care Team (Late st Contact Info) Description 06/08/2022 Scanned Document INTERFACE DEFAULT [address] [place] [address] System, Provider Not In Social History Tobacco [...] [facility] Building A [address] [place], [place] [phone] Ronald Mills MD [address] [place] [address] [address] [place] [address] documented as of this encounter [...] documented as of this encounter Care Teams Male Infertility Specialist Relationship Specialty Start Date End Date Caitlyn Bowie MD [address] [address] PCP - General Internal Medicine 05/06/21 documented as of this encounter
--- OUTSIDE RECORDS SUMMARY | 2024-11-04 17:53 | XMS_ITS | Encounter Summary ---
Author Organization [facility] Address [address] [place] [address] Care Team Providers Care Assembler Semiconductor Name Role Phone Caitlyn Bowie MD Primary Care Provider +1- [phone] Encounter Details Date Type Department Care Team (Late st Contact Info) Description 10/24/2022 Scanned Document INTERFACE DEFAULT [address] [place] [address] System, Provider Not In Social History Tobacco [...] [facility] Building [address] [place], [place] [address] Ronald Mills MD [address] [place] [address] [address] [place] [address] documented as of this encounter [...] as of this encounter Care Teams Assembler Semiconductor Relationship Specialty Start Date End Date Caitlyn Bowie MD [facility] [address] [address] PCP - General Internal Medicine 05/06/21 documented as of this encounter
--- OUTSIDE RECORDS SUMMARY | 2024-11-04 17:53 | XMS_ITS | Encounter Summary ---
Author Organization [facility] and [facility] Address [address] [place] [address] Care Team Providers Care Estate Planning Counselor Name Role Phone Caitlyn Bowie MD Primary Care Provider +1- [phone] Encounter Details Date Type Department Care Team (Late st Contact Info) Description 01/02/2024 Scanned Document INTERFACE DEFAULT [address] [place] [address] System, Provider Not In Social History Tobacco [...] [facility] 240 [facility] Building [address] [place], [place] [address] Ronald Mills MD [address] [place] [address] [address] [place] [address] documented as of this encounter [...] of this encounter Care Teams Estate Planning Counselor Relationship Specialty Start Date End Date Caitlyn Bowie MD [address] [address] PCP - General Internal Medicine 05/06/21 documented as of this encounter
--- OUTSIDE RECORDS SUMMARY | 2024-11-04 17:53 | XMS_ITS | Encounter Summary ---
Author Organization [facility] and [facility] Address [address] [place] [address] Care Team Providers Care Clock And Watch Hands Mounter Name Role Phone Caitlyn Bowie MD Primary Care Provider +1- [phone] Encounter Details Date Type Department Care Team (Late st Contact Info) Description 04/20/2023 Scanned Document INTERFACE DEFAULT [address] [place] [address] System, Provider Not In Social History Tobacco [...] [facility] 240 [facility] Building [address] [place], [place] [phone] Ronald Mills MD [address] [place] [address] [address] [place] [address] documented as of this encounter [...] documented as of this encounter Care Teams Clock And Watch Hands Mounter Relationship Specialty Start Date End Date Caitlyn Bowie MD [address] [address] PCP - General Internal Medicine 05/06/21 documented as of this encounter
--- OUTSIDE RECORDS SUMMARY | 2024-11-04 17:53 | XMS_ITS | Encounter Summary ---
Author Organization [facility] Address [address] [place] [address] Care Team Providers Care Soft Drink Powder Mixer Name Role Phone Caitlyn Bowie MD Primary Care Provider +1- [phone] Encounter Details Date Type Department Care Team (Late st Contact Info) Description 10/23/2018 Scanned Document [facility] Health Information Management [address] [place] [phone] External, Provider Social History Tobacco Use Types [...] [facility] 240 [facility] Building [address] [place], [place] [phone] Ronald Mills MD [address] [place] [address] [address] [place] [address] documented as of this encounter Visit Diagnoses Not on filedocumented in this encounter Additional Health Concerns Infection Onset Date Last Indicated Resolved Time COVID-19 03/05/2022 03/05/2022 03/15/2022 7:18 PM EDT documented as of this encounter Care Teams Soft Drink Powder Mixer Relationship Specialty Start Date End Date Caitlyn Bowie MD [address] [facility] 1 [place] [address] PCP - General Internal Medicine 05/06/21 Henry Kelly MD Pulmonary Department 175 [facility], [address] [place] [address] Physician Pulmonary Disease 09/06/17 06/22/20 documented as of this encounter
--- OUTSIDE RECORDS SUMMARY | 2024-11-04 17:53 | XMS_ITS | Encounter Summary ---
Author Organization [facility] Address [address] [place] [address] Care Team Providers Care Track Inspector Name Role Phone Caitlyn Bowie MD Primary Care Provider +1- [phone] Encounter Details Date Type Department Care Team (Late st Contact Info) Description 09/09/2015 Scanned Document [facility] Health Information Management [address] [place] [address] External, Provider Social History Tobacco Use Types [...] [facility] at [facility] 240 [facility] [address] [place], [place] [phone] Ronald Mills MD [address] [employer] [address] [place] [address] documented as of this encounter Procedures Procedure Name Priority Date/Time Associated Diagnosis Comments LAB SCAN Routine 09/09/2015 documented in this encounter Results * Lab Scan (09/09/2015) Blood specimen (specimen) us Provider External LAB BLOOD ORDERABLES Final Res ult Performing Organization Address City/State/[facility] Co de Phone Number [facility] documented in this encounter Visit Diagnoses Not on filedocumented in this encounter Additional Health Concerns Infection Onset Date Last Indicated Resolved Time COVID-19 03/05/2022 03/05/2022 03/15/2022 7:18 PM EDT documented as of this encounter Care Teams Track Inspector Relationship Specialty Start Date End Date Caitlyn Bowie MD 3400 [facility] 1 [place] [address] PCP - General Internal Medicine 05/06/21 Henry Kelly MD Pulmonary Department [address] [facility], [address] [place] [address] Physician Pulmonary Disease 09/06/17 06/22/20 documented as of this encounter
--- OUTSIDE RECORDS SUMMARY | 2024-11-04 17:53 | XMS_ITS | Encounter Summary ---
Author Organization [facility] and [facility] Address [address] [place] [address] Care Team Providers Care Varnisher Name Role Phone Caitlyn Bowie MD Primary Care Provider +1- [phone] Encounter Details Date Type Department Care Team (Late st Contact Info) Description 05/17/2023 Scanned Document INTERFACE DEFAULT [address] [place] [address] System, Provider Not In Social History Tobacco [...] at [facility] 240 [facility] Building [address] [place], [place] [phone] Ronald Mills MD [address] [place] [address] [address] [place] [address] documented as of this encounter [...] documented as of this encounter Care Teams Varnisher Relationship Specialty Start Date End Date Caitlyn Bowie MD [address] [address] PCP - General Internal Medicine 05/06/21 documented as of this encounter
--- OUTSIDE RECORDS SUMMARY | 2024-11-04 17:53 | XMS_ITS | Encounter Summary ---
Author Organization [facility] Address [address] [place] [address] Care Team Providers Care Education Adviser Name Role Phone Caitlyn Bowie MD Primary Care Provider +1- [phone] Encounter Details Date Type Department Care Team (Late st Contact Info) Description 09/10/2021 Scanned Document Cardiovascular Medicine at [address] [place] [address] Norma Renee MD [address] [place] [phone] Social History Tobacco Use Types Packs/Day Years [...] PM EDT Telemedicine Cancer Center at [address] [place] [address] Ronald Mills MD [address] [place] [address] [address] [place] [address] documented as of this encounter Visit Diagnoses Not on filedocumented in this encounter Additional Health Concerns Infection Onset Date Last Indicated Resolved Time COVID-19 03/05/2022 03/05/2022 03/15/2022 7:18 PM EDT Assessment Noted Time PHQ-9 Depression Total Score: 2 11/07/19 19 2:06 PM EDT documented as of this encounter Care Teams Education Adviser Relationship Specialty Start Date End Date Caitlyn Bowie MD [address] [address] PCP - General Internal Medicine 05/06/21 documented as of this encounter
--- OUTSIDE RECORDS SUMMARY | 2024-11-04 17:53 | XMS_ITS | Encounter Summary ---
Author Organization [facility] Address [address] [place] [address] Care Team Providers Care Mechanical Design Engineer Name Role Phone Caitlyn Bowie MD Primary Care Provider +1- [phone] Reason for Visit * Reason Comments Advice Only mass Encounter Details Date Type Department Care Team (Late st Contact Info) Description 09/06/2021 Telephone [facility] at [address] [phone] Ronald Mills MD [address] [place] [phone] Advice Only (mass) Social History Tobacco [...] Center at [facility] 240 [facility] Building [address] [place], [place] [phone] Ronald Mills MD 240 [facility] [address] [place] [phone] documented as of this encounter Visit Diagnoses Not on filedocumented in this encounter Additional Health Concerns Infection Onset Date Last Indicated Resolved Time COVID-19 03/05/2022 03/05/2022 03/15/2022 7:18 PM EDT Assessment Noted Time PHQ-9 Depression Total Score: 2 11/07/19 19 2:06 PM EDT documented as of this encounter Care Teams Mechanical Design Engineer Relationship Specialty Start Date End Date Caitlyn Bowie MD [address] [address] PCP - General Internal Medicine 05/06/21 documented as of this encounter
--- OUTSIDE RECORDS SUMMARY | 2024-11-04 17:53 | XMS_ITS | Encounter Summary ---
Author Organization [facility] Address [address] [place] [address] Care Team Providers Care Criminal Lawyer Name Role Phone Caitlyn Bowie MD Primary Care Provider +1- [phone] Encounter Details Date Type Department Care Team (Late st Contact Info) Description 09/01/2023 Scanned Document INTERFACE DEFAULT [address] [place] [address] System, Provider Not In Social History Tobacco [...] [facility] 240 [facility] Building [address] [place] [address] Ronald Mills MD [address] [place] [address] [address] [place] [address] documented as of this encounter Visit Diagnoses Not on filedocumented in this encounter Additional Health Concerns Assessment Noted Time PHQ-9 Depression Total Score: 2 11/07/19 19 2:06 PM EDT documented as of this encounter Care Teams Criminal Lawyer Relationship Specialty Start Date End Date Caitlyn Bowie MD [address] [address] PCP - General Internal Medicine 05/06/21 documented as of this encounter
--- OUTSIDE RECORDS SUMMARY | 2024-11-04 17:53 | XMS_ITS | Encounter Summary ---
Author Organization [facility] Address [address] [place] [address] Care Team Providers Care Garment Cutter Name Role Phone Caitlyn Bowie MD Primary Care Provider +1- [phone] Encounter Details Date Type Department Care Team (Late st Contact Info) Description 06/23/2022 Scanned Document INTERFACE DEFAULT [address] [place] [address] System, Provider Not In Social History Tobacco [...] [facility] at [facility] 240 [facility] Building [address] [place] [address] Ronald Mills MD [address] [place] [address] [address] [place] [address] documented as of this encounter Visit Diagnoses Not on filedocumented in this encounter Additional Health Concerns Assessment Noted Time PHQ-9 Depression Total Score: 2 11/07/19 19 2:06 PM EDT documented as of this encounter Care Teams Garment Cutter Relationship Specialty Start Date End Date Caitlyn Bowie MD [address] [place] [address] [address] PCP - General Internal Medicine 05/06/21 documented as of this encounter
--- OUTSIDE RECORDS SUMMARY | 2024-11-04 17:53 | XMS_ITS | Encounter Summary ---
Author Organization [facility] and [facility] Address [address] [place] [address] Care Team Providers Care Director Epidemiology Name Role Phone Caitlyn Bowie MD Primary Care Provider +1- [phone] Encounter Details Date Type Department Care Team (Late st Contact Info) Description 04/19/2023 Scanned Document INTERFACE DEFAULT [address] [place] [address] System, Provider Not In Social History Tobacco [...] [facility] 240 [facility] Building [address] [place], [place] [phone] Ronald Mills MD [address] [place] [address] [address] [place] [address] documented as of this encounter [...] as of this encounter Care Teams Director Epidemiology Relationship Specialty Start Date End Date Caitlyn Bowie MD [address] [address] PCP - General Internal Medicine 05/06/21 documented as of this encounter
--- OUTSIDE RECORDS SUMMARY | 2024-11-04 17:53 | XMS_ITS | Encounter Summary ---
Author Organization [facility] Address [address] [place] [address] Care Team Providers Care Assistant Credit Manager Name Role Phone Caitlyn Bowie MD Primary Care Provider +1- [phone] Encounter Details Date Type Department Care Team (Late st Contact Info) Description 09/09/2021 Scanned Document INTERFACE DEFAULT [address] [place] [address] System, Provider Not In Social History Tobacco [...] – [facility] [address] [facility] Building [address] [place] [address] Ronald Mills MD [address] [place] [address] [address]1 [place] [address] documented as of this encounter Visit Diagnoses Not on filedocumented in this encounter Additional Health Concerns Infection Onset Date Last Indicated Resolved Time COVID-19 03/05/2022 03/05/2022 03/15/2022 7:18 PM EDT Assessment Noted Time PHQ-9 Depression Total Score: 2 11/07/19 19 2:06 PM EDT documented as of this encounter Care Teams Assistant Credit Manager Relationship Specialty Start Date End Date Caitlyn Bowie MD [address] [address] PCP - General Internal Medicine 05/06/21 documented as of this encounter
--- OUTSIDE RECORDS SUMMARY | 2024-11-04 17:53 | XMS_ITS | Encounter Summary ---
Author Organization [facility] Address [address] [place] [address] Care Team Providers Care Molder Operator Name Role Phone Caitlyn Bowie MD Primary Care Provider +1- [phone] Encounter Details Date Type Department Care Team (Late st Contact Info) Description 12/06/2018 Scanned Document [facility] Health Information Management [address] [place] [address] External, Provider Social History Tobacco Use Types [...] [facility] at [facility] 240 [facility] Building [address] [place], [place] [phone] Ronald Mills MD [address] [place] [address] [address]1 [place] [address] documented as of this encounter [...] as of this encounter Care Teams Molder Operator Relationship Specialty Start Date End Date Caitlyn Bowie MD 3400 [facility] 1 [place] [address] PCP - General Internal Medicine 05/06/21 Henry Kelly MD Pulmonary Department 175 [facility], [address] [place] [address] Physician Pulmonary Disease 09/06/17 06/22/20 documented as of this encounter
--- OUTSIDE RECORDS SUMMARY | 2024-11-04 17:53 | XMS_ITS | Encounter Summary ---
Author Organization [facility] and [facility] Address [address] [place] [address] Care Team Providers Care Manganese Breaker Name Role Phone Caitlyn Bowie MD Primary Care Provider +1- [phone] Encounter Details Date Type Department Care Team (Late Contact Info) Description 01/31/2023 Abstract [facility] Mel[facility] 35 [facility]8 [place] [address] Shilpi Romero, RN Social History Tobacco Use [...] at [facility] 240 [facility] [address] [place], [place] [address] Ronald Mills MD [address] [place] [address] documented as of this encounter Visit Diagnoses Not on filedocumented in this encounter Additional Health Concerns Assessment Noted Time PHQ-9 Depression Total Score: 2 11/07/19 19 2:06 PM EDT documented as of this encounter Care Teams Manganese Breaker Relationship Specialty Start Date End Date Caitlyn Bowie MD [address] [address] PCP - General Internal Medicine 05/06/21 documented as of this encounter
--- OUTSIDE RECORDS SUMMARY | 2024-11-04 17:53 | XMS_ITS | Encounter Summary ---
Author Organization [facility] Address [address] [place] [address] Care Team Providers Care Director Of Sleep Name Role Phone Caitlyn Bowie MD Primary Care Provider +1- [phone] Encounter Details Date Type Department Care Team (Late st Contact Info) Description 09/07/2021 Scanned Document INTERFACE DEFAULT [address] [place] [address] System, Provider Not In Social History Tobacco [...] Center at [facility] [address] [facility] Building [address] [place], [place] [phone] Ronald Mills MD [address] [place] [address] [address] [place] [address] documented as of this encounter [...] of this encounter Care Teams Director Of Sleep Relationship Specialty Start Date End Date Caitlyn Bowie MD [address] [address] PCP - General Internal Medicine 05/06/21 documented as of this encounter
--- OUTSIDE RECORDS SUMMARY | 2024-11-04 17:53 | XMS_ITS | Encounter Summary ---
Author Organization [facility] Address [address] [place] [address] Care Team Providers Care Recorder Gravity Prospecting Name Role Phone Caitlyn Bowie MD Primary Care Provider +1- [phone] Encounter Details Date Type Department Care Team (Late st Contact Info) Description 09/24/2015 Scanned Document Digestive Diseases at 40 [facility] 40 [facility] [address] [place] [address] Kevin Espinoza MD [address] [place] [phone] Social History Tobacco Use Types Packs/Day [...] PM EDT Telemedicine Cancer Center at [address] [place], [place] [phone] Ronald Mills MD [address] [place] [address] [address] [place] [address] documented as of this encounter Visit Diagnoses Not on filedocumented in this encounter Additional Health Concerns Infection Onset Date Last Indicated Resolved Time COVID-19 03/05/2022 03/05/2022 03/15/2022 7:18 PM EDT documented as of this encounter Care Teams Recorder Gravity Prospecting Relationship Specialty Start Date End Date Caitlyn Bowie MD 3400 [facility] 1 [place] [address] PCP - General Internal Medicine 05/06/21 Henry Kelly MD Pulmonary Department 175 [facility], [address] [place] [address] Physician Pulmonary Disease 09/06/17 06/22/20 documented as of this encounter
--- OUTSIDE RECORDS SUMMARY | 2024-11-04 17:53 | XMS_ITS | Encounter Summary ---
Author Organization [facility] and [facility] Address [address] [place] [address] Care Team Providers Care Operating Systems Programmer Name Role Phone Caitlyn Bowie MD Primary Care Provider +1- [phone] Encounter Details Date Type Department Care Team (Late st Contact Info) Description 09/02/2021 Scanned Document INTERFACE DEFAULT [address] [place] [address] System, Provider Not In Social History Tobacco [...] at [facility] 240 [facility] Building [address] [place], [place] [phone] Ronald Mills MD [address] [place] [address] [address] [place] [address] documented as of this encounter [...] documented as of this encounter Care Teams Operating Systems Programmer Relationship Specialty Start Date End Date Caitlyn Bowie MD [address] [address] PCP - General Internal Medicine 05/06/21 documented as of this encounter
--- OUTSIDE RECORDS SUMMARY | 2024-11-04 17:53 | XMS_ITS | Encounter Summary ---
Author Organization [facility] and [facility] Address [address] [place] [address] Care Team Providers Care Lumber Racker Name Role Phone Caitlyn Bowie MD Primary Care Provider +1- [phone] Encounter Details Date Type Department Care Team (Late st Contact Info) Description 04/25/2022 Scanned Document INTERFACE DEFAULT [address] [place] [address] System, Provider Not In Social History Tobacco [...] [facility] 240 [facility] Building [address] [place] [address] Ronald Mills MD [address] [place] [address] [address] [place] [address] documented as of this encounter Visit Diagnoses Not on filedocumented in this encounter Additional Health Concerns Assessment Noted Time PHQ-9 Depression Total Score: 2 11/07/19 19 2:06 PM EDT documented as of this encounter Care Teams Lumber Racker Relationship Specialty Start Date End Date Caitlyn Bowie MD [address] [address] PCP - General Internal Medicine 05/06/21 documented as of this encounter
--- OUTSIDE RECORDS SUMMARY | 2024-11-04 17:53 | XMS_ITS | Encounter Summary ---
Author Organization [facility] and [facility] Address [address] [place] [address] Care Team Providers Care Logistics Research Engineer Name Role Phone Caitlyn Bowie MD Primary Care Provider +1- [phone] Encounter Details Date Type Department Care Team (Late st Contact Info) Description 07/08/2022 Scanned Document Cardiovascular Medicine at [address] [place] [phone] Norma Renee MD [address] [place] [phone] Social History Tobacco Use Types Packs/Day Years [...] 4:00 PM EDT Telemedicine Cancer Center at [address] [place] [address] Ronald Mills MD [address] [place] [address] [address]1 [place] [address] documented as of this encounter Visit Diagnoses Not on filedocumented in this encounter Additional Health Concerns Assessment Noted Time PHQ-9 Depression Total Score: 2 11/07/19 19 2:06 PM EDT documented as of this encounter Care Teams Logistics Research Engineer Relationship Specialty Start Date End Date Caitlyn Bowie MD [address] [address] PCP - General Internal Medicine 05/06/21 documented as of this encounter
--- OUTSIDE RECORDS SUMMARY | 2024-11-04 17:53 | XMS_ITS | Encounter Summary ---
Author Organization [facility] and [facility] Address [address] [place] [address] Care Team Providers Care Document Coordinator Name Role Phone Caitlyn Bowie MD Primary Care Provider +1- [phone] Encounter Details Date Type Department Care Team (Late st Contact Info) Description 04/22/2022 Scanned Document INTERFACE DEFAULT [address] [place] [address] System, Provider Not In Social History Tobacco [...] Cancer Center 240 [facility] Building [address] [place], [place] [phone] Ronald Mills MD [address] [place] [address] [address] [place] [address] documented as of this encounter [...] as of this encounter Care Teams Document Coordinator Relationship Specialty Start Date End Date Caitlyn Bowie MD [address] [address] PCP - General Internal Medicine 05/06/21 documented as of this encounter
--- OUTSIDE RECORDS SUMMARY | 2024-11-04 17:53 | XMS_ITS | Encounter Summary ---
Author Organization [facility] Address [address] [place] [address] Care Team Providers Care Electronic Industrial Controls Mechanic Name Role Phone Caitlyn Bowie MD Primary Care Provider +1- [phone] Encounter Details Date Type Department Care Team (Late st Contact Info) Description 05/02/2022 Scanned Document INTERFACE DEFAULT [address] [place] [address] System, Provider Not In Social History Tobacco [...] [facility] 240 [facility] Building [address] [place] [address] Ronald Mills MD [address] [place] [address] [address] [place] [address] documented as of this encounter [...] as of this encounter Care Teams Electronic Industrial Controls Mechanic Relationship Specialty Start Date End Date Caitlyn Bowie MD [address] [address] PCP - General Internal Medicine 05/06/21 documented as of this encounter
--- OUTSIDE RECORDS SUMMARY | 2024-11-04 17:53 | XMS_ITS | Encounter Summary ---
Author Organization [facility] Address [address] [place] [address] [address] [place] [address] Phone Care Team Providers Care Admissions Coordinator Name Role Phone Caitlyn Bowie MD Primary Care Provider +1- [phone] Encounter Details Date Type Department Care Team (Late st Contact Info) Description 08/30/2024 Abstract [facility] [address] [place] [address] 202 [place] [address] Adalgisa Whitney MD [address] [place] [address] 202 [place] [address] Social History Tobacco Use Types [...] 4:00 PM EDT Telemedicine Cancer Center at [address] [place] [address] Ronald Mills MD 240 [facility] A1 [place] [address] documented as of this encounter Visit Diagnoses Not on filedocumented in this encounter Additional Health Concerns Assessment Noted Time PHQ-9 Depression Total Score: 2 11/07/19 19 2:06 PM EDT documented as of this encounter Care Teams Admissions Coordinator Relationship Specialty Start Date End Date Caitlyn Bowie MD [address] [address] PCP - General Internal Medicine 05/06/21 documented as of this encounter
--- OUTSIDE RECORDS SUMMARY | 2024-11-04 17:53 | XMS_ITS | Encounter Summary ---
Author Organization [facility] Address [address] [place] [address] Care Team Providers Care Lobby Porter Name Role Phone Caitlyn Bowie MD Primary Care Provider +1- [phone] Encounter Details Date Type Department Care Team (Late st Contact Info) Description 05/16/2023 Scanned Document INTERFACE DEFAULT [address] [place] [address] System, Provider Not In Social History Tobacco [...] [facility] 240 [facility] [place] Building [address] [place], [place] [phone] Ronald Mills MD [address] [place] [address] [address] [place] [address] documented as of this encounter [...] documented as of this encounter Care Teams Lobby Porter Relationship Specialty Start Date End Date Caitlyn Bowie MD [address] [address] PCP - General Internal Medicine 05/06/21 documented as of this encounter
--- OUTSIDE RECORDS SUMMARY | 2024-11-04 17:53 | XMS_ITS | Encounter Summary ---
Author Organization [facility] and [facility] Address [address] [place] [address] Care Team Providers Care Mortgage Loan Assistant Name Role Phone Caitlyn Bowie MD Primary Care Provider +1- [phone] Encounter Details Date Type Department Care Team (Late st Contact Info) Description 07/07/2021 Scanned Document INTERFACE DEFAULT [address] [place] [address] System, Provider Not In Social History Tobacco [...] [facility] Building [address] [place] [address] Ronald Mills MD [address] [place] [address] [address] [place] [address] documented as of this encounter Visit Diagnoses Not on filedocumented in this encounter Additional Health Concerns Infection Onset Date Last Indicated Resolved Time COVID-19 03/05/2022 03/05/2022 03/15/2022 7:18 PM EDT Assessment Noted Time PHQ-9 Depression Total Score: 2 11/07/19 19 2:06 PM EDT documented as of this encounter Care Teams Mortgage Loan Assistant Relationship Specialty Start Date End Date Caitlyn Bowie MD [address] [phone] PCP - General Internal Medicine 05/06/21 documented as of this encounter
--- OUTSIDE RECORDS SUMMARY | 2024-11-04 17:53 | XMS_ITS | Encounter Summary ---
Author Organization [facility] Address [address] [place] [address] Care Team Providers Care Ear Nose And Throat Specialist Name Role Phone Caitlyn Bowie MD Primary Care Provider +1- [phone] Encounter Details Date Type Department Care Team (Late st Contact Info) Description 08/23/2022 Abstract Cardiovascular Medicine at [address] [place] [address] Norma Renee MD [address] [place] [phone] Social History Tobacco Use Types Packs/Day Years [...] 4:00 PM EDT Telemedicine Cancer Center at [address] [place] [address] Ronald Mills MD [address] [place] [address] [address] [place] [address] documented as of this encounter Visit Diagnoses Not on filedocumented in this encounter Additional Health Concerns Assessment Noted Time PHQ-9 Depression Total Score: 2 11/07/19 19 2:06 PM EDT documented as of this encounter Care Teams Ear Nose And Throat Specialist Relationship Specialty Start Date End Date Caitlyn Bowie MD [address] [address] PCP - General Internal Medicine 05/06/21 documented as of this encounter
--- OUTSIDE RECORDS SUMMARY | 2024-11-04 17:53 | XMS_ITS | Encounter Summary ---
Author Organization [facility] Address [address] [place] [address] Care Team Providers Care Media/Instructional Designer Name Role Phone Caitlyn Bowie MD Primary Care Provider +1- [phone] Encounter Details Date Type Department Care Team (Late st Contact Info) Description 05/04/2022 Scanned Document INTERFACE DEFAULT [address] [place] [address] System, Provider Not In Social History Tobacco [...] [facility] 240 [facility] Building [address] [place] [address] Ronald Mills MD [address] [place] [address] [address] [place] [address] documented as of this encounter Visit Diagnoses Not on filedocumented in this encounter Additional Health Concerns Assessment Noted Time PHQ-9 Depression Total Score: 2 11/07/19 19 2:06 PM EDT documented as of this encounter Care Teams Media/Instructional Designer Relationship Specialty Start Date End Date Caitlyn Bowie MD [address] [address] PCP - General Internal Medicine 05/06/21 documented as of this encounter
--- OUTSIDE RECORDS SUMMARY | 2024-11-04 17:53 | XMS_ITS | Encounter Summary ---
Author Organization [facility] Address [address] [place] [address] Care Team Providers Care Digital Cartographer Name Role Phone Caitlyn Bowie MD Primary Care Provider +1- [phone] Encounter Details Date Type Department Care Team (Late st Contact Info) Description 12/23/2022 Scanned Document INTERFACE DEFAULT [address] [place] [address] System, Provider Not In Social History Tobacco [...] Telemedicine Cancer Center at [facility] 240 [facility] Building [address] [place] [address] Ronald Mills MD [address] [place] [address] [address] [place] [address] documented as of this encounter Visit Diagnoses Not on filedocumented in this encounter Additional Health Concerns Assessment Noted Time PHQ-9 Depression Total Score: 2 11/07/19 19 2:06 PM EDT documented as of this encounter Care Teams Digital Cartographer Relationship Specialty Start Date End Date Caitlyn Bowie MD [address] [address] PCP - General Internal Medicine 05/06/21 documented as of this encounter
--- OUTSIDE RECORDS SUMMARY | 2024-11-04 17:53 | XMS_ITS | Encounter Summary ---
Author Organization [facility] Address [address] [place] [address] Care Team Providers Care Softball Umpire Name Role Phone Caitlyn Bowie MD Primary Care Provider +1- [phone] Encounter Details Date Type Department Care Team (Late st Contact Info) Description 07/06/2021 Scanned Document INTERFACE DEFAULT [address] [place] [address] System, Provider Not In Social History Tobacco [...] [facility] 240 [facility] Building [address] [place] [address] Ronald Mills MD [address] [place] [address] [address] [place] [address] documented as of this encounter Visit Diagnoses Not on filedocumented in this encounter Additional Health Concerns Infection Onset Date Last Indicated Resolved Time COVID-19 03/05/2022 03/05/2022 03/15/2022 7:18 PM EDT Assessment Noted Time PHQ-9 Depression Total Score: 2 11/07/19 19 2:06 PM EDT documented as of this encounter Care Teams Softball Umpire Relationship Specialty Start Date End Date Caitlyn Bowie MD [address] [address] PCP - General Internal Medicine 05/06/21 documented as of this encounter
--- OUTSIDE RECORDS SUMMARY | 2024-11-04 17:54 | XMS_ITS | Encounter Summary ---
Author Organization [facility] and [facility] Address [address] [place] [address] Care Team Providers Care Ice Crusher Name Role Phone Caitlyn Bowie MD Primary Care Provider +1- [phone] Encounter Details Date Type Department Care Team (Late st Contact Info) Description 09/09/2024 Scanned Document INTERFACE DEFAULT [address] [place] [address] System, Provider Not In Social History Tobacco [...] [facility] 240 [facility] Building [address] [place], [place] [phone] Ronald Mills MD [address] [place] [address] [address] [place] [address] documented as of this encounter [...] End Date Caitlyn Bowie MD [address] [address] PCP - General Internal Medicine 05/06/21 documented as of this encounter
--- OUTSIDE RECORDS SUMMARY | 2024-11-04 17:54 | XMS_ITS | Encounter Summary ---
Author Organization [facility] Address [address] [place] [address] Care Team Providers Care Funding Specialist Name Role Phone Caitlyn Bowie MD Primary Care Provider +1- [phone] Encounter Details Date Type Department Care Team (Late st Contact Info) Description 01/08/2019 Scanned Document [facility] Health Information Management [address] [place] [address] External, Provider Social History Tobacco Use Types [...] [facility] at [facility] 240 [facility] Building [address] [place] [address] Ronald Mills MD [address] [place] [address] [address] [place] [address] documented as of this encounter [...] documented as of this encounter Care Teams Funding Specialist Relationship Specialty Start Date End Date Caitlyn Bowie MD 3400 [facility] 1 [place] [address] PCP - General Internal Medicine 05/06/21 Henry Kelly MD Pulmonary Department 175 [facility], [address] [place] [address] Physician Pulmonary Disease 09/06/17 06/22/20 documented as of this encounter
--- OUTSIDE RECORDS SUMMARY | 2024-11-04 17:54 | XMS_ITS | Clinical Summary ---
Author Organization [facility] Address [address] [place] [address] Phone Care Team Providers Care Recreational Therapy Aide Name Role Phone Caitlyn Bowie MD Primary Care Provider +1- [phone] Encounters Date Type Department Care Team Description 10/10/2024 Documentation Only [facility] [address] [place] [address] Ron Taylor MA 10/01/2024 Documentation Only [facility] [address] [place] [address] Ron Taylor MA 09/25/2024 Telephone [facility] [address] [place] [address] Ron Taylor MA from Last [...] Visit [facility] [address] [place] [address] Rubén Ashraf MD [address] [place] [address] [place] [phone] Health Maintenance Due Date Last Done Comments Influenza Vaccine (Season Ended) 2025 04/27/2020, 04/22/2019, 04/18/2016 Pneumococcal Vaccine: 50+ Years Completed 08/31/2021, 03/25/2016, 09/17/2015, Additional history exists Hepatitis B Vaccine Aged Out No longe r eligible based on patient's age to complete this topic Insurance Medicare [facility] Care Teams Recreational Therapy Aide Relationship Specialty Start Date End Date Caitlyn Bowie MD [facility] [place], [place] PCP - General Internal Medicine 09/24/24
--- OUTSIDE RECORDS SUMMARY | 2024-11-04 17:54 | XMS_ITS | Encounter Summary ---
Author Organization [facility] Address [address] [place] [address] Care Team Providers Care Pipeline Maintenance Supervisor Name Role Phone Caitlyn Bowie MD Primary Care Provider +1- [phone] Encounter Details Date Type Department Care Team (Late st Contact Info) Description 12/31/2015 Scanned Document [facility] [address] [place] [address] External, Provider Social History Tobacco Use Types [...] [facility] Building [address] [place], [place] [phone] Ronald Mills MD [address] [place] [address] [address] [place] [address] documented as of this encounter Procedures Procedure Name Priority Date/Time Associated Diagnosis Comments LAB SCAN Routine 12/31/2015 documented in this encounter Results * Lab Scan (12/31/2015) Blood specimen (specimen) us Provider External LAB BLOOD ORDERABLES Final Res ult Performing Organization Address City/State/[facility] Co de Phone Number [facility] documented in this encounter Visit Diagnoses Not on filedocumented in this encounter Additional Health Concerns Infection Onset Date Last Indicated Resolved Time COVID-19 03/05/2022 03/05/2022 03/15/2022 7:18 PM EDT documented as of this encounter Care Teams Pipeline Maintenance Supervisor Relationship Specialty Start Date End Date Caitlyn Bowie MD 3400 [facility] 1 [place] [address] PCP - General Internal Medicine 05/06/21 Henry Kelly MD Pulmonary Department 175 [facility], [address] [place] [address] Physician Pulmonary Disease 09/06/17 06/22/20 documented as of this encounter
--- OUTSIDE RECORDS SUMMARY | 2024-11-04 17:54 | XMS_ITS | Encounter Summary ---
Author Organization [facility] Address [address] [place] [address] Care Team Providers Care Spiritual Advisor Name Role Phone Caitlyn Bowie MD Primary Care Provider +1- [phone] Encounter Details Date Type Department Care Team (Late st Contact Info) Description 04/18/2022 Scanned Document INTERFACE DEFAULT [address] [place] [address] System, Provider Not In Social History Tobacco [...] [facility] 240 [facility] Building [address] [place] [address] Ronald Mills MD [address] [place] [address] [address] [place] [address] documented as of this encounter Visit Diagnoses Not on filedocumented in this encounter Additional Health Concerns Assessment Noted Time PHQ-9 Depression Total Score: 2 11/07/19 19 2:06 PM EDT documented as of this encounter Care Teams Spiritual Advisor Relationship Specialty Start Date End Date Caitlyn Bowie MD [address] [address] PCP - General Internal Medicine 05/06/21 documented as of this encounter
--- OUTSIDE RECORDS SUMMARY | 2024-11-04 17:54 | XMS_ITS | Encounter Summary ---
Author Organization [facility] Address [address] [place] [address] Care Team Providers Care Chronic Manager Name Role Phone Caitlyn Bowie MD Primary Care Provider +1- [phone] Encounter Details Date Type Department Care Team (Latest Contact Info) Description 12/25/2015 Transcribed Orders [facility] Draw Station [address] [facility] [place] [address] Osmel Briscoe MD Other abnormality of red [...] 4:00 PM EDT Telemedicine Cancer Center at [address] [place], [place] [phone] Ronald Mills MD [address] [place] [address] [address] [place] [address] documented as of this encounter Results * Free kappa lambda with ratio, serum ( GH Q YH) (12/25/2015 10:09 AM EDT) Ig [facility] Free Light Chain 1.84 0.33 - 1.94 mg/dL [facility] Ig Lambda Free Light Chain 1.96 0.57 - 2.63 mg/dL [facility]/Lambda FLC Ratio 0.94 0.26 - 1.65 [facility] Blood specimen (specimen) 12/25/2015 10:09 AM EDT Result [facility] Osmel Briscoe MD LAB BLOOD ORDERABLES Final R esult Performing Organization Address [facility] Co de Phone Number [facility] [address] [place] [address] * Immunofixation, serum ( L Q YH) (12/25/2015 10:09 AM EDT) [facility] Immunofixation Electrophoresis Gel See below See Interp. [facility] Comment: INTERPRETATION: Normal immunofixation electrophoresis. No evidence of a serum monoclonal component. SIGNED BY:Keyur KAYE MD ON 12/29/2015 14:56:04 INTERPRETATION REVIEW : I have reviewed these results and agree with this interpretation. Blood specimen (specimen) 12/25/2015 10:09 AM EDT Osmel Briscoe MD LAB BLOOD ORDERABLES Final R esult Performing Organization Address [facility] Co de Phone Number [facility] [address] [place] [address] * (ABNORMAL) Protein electrophoresis, serum ( GH L YH) (12/25/2015 10:09 AM EDT) Albumin Electrophoresis 3.45(L) 3.50 - 4.70 g/dL [facility] Swmyf-3-Khiccuvd 0.16 0.10 - 0.30 g/dL [facility] Vdhcn-6-Lzwsgqye 0.81 0.60 - 1.00 g/dL [facility] [...] ORDERABLES Final R esult Performing Organization Address [facility] Co de Phone Number [facility] [address] [place] [phone] * Reticulocytes (GH L Q YH) (12/25/2015 10:09 AM EDT) Reticulocyte Count 2.1 0.6 - 2.7 % [facility] Blood specimen (specimen) 12/25/2015 10:09 AM EDT Osmel Briscoe MD LAB BLOOD ORDERABLES Final R esult Performing Organization Address [facility] Co de Phone Number [facility] [address] [place] [address] * (ABNORMAL) Sedimentation rate (ESR) (12/25/2015 10:09 AM EDT) Sed Rate 27(H) 0 - 20 mm/hr [facility] Blood specimen (specimen) 12/25/2015 10:09 AM EDT us Osmel Briscoe MD LAB BLOOD ORDERABLES Final R esult Performing Organization Address [facility] Co de Phone Number [facility] [address] [place] [phone] * Ferritin (12/25/2015 10:09 AM EDT) Ferritin 68 9 - 120 ng/mL [facility] Blood specimen (specimen) 12/25/2015 10:09 AM EDT Osmel Briscoe MD LAB BLOOD ORDERABLES Final R esult Performing Organization Address [facility] Co de Phone Number [facility] [address] [place] [address] * Iron and TIBC (12/25/2015 10:09 AM EDT) Iron 110 50 - 170 ug/dL [facility] TIBC 290 250 - 450 ug/dL [facility] Iron Saturation 38 15 - 50 [facility] Blood specimen (specimen) 12/25/2015 10:09 AM EDT Osmel Briscoe MD LAB BLOOD ORDERABLES Final R esult Performing Organization Address [facility] Co de Phone Number [facility] [address] [place] [phone] * Vitamin D 25 hydroxy (BH L [...] ORDERABLES Final R esult Performing Organization Address City/[facility]/ZIP Co de Phone Number [facility] [address] [place] [phone] * TSH (BH L YH) (12/25/2015 10:09 AM EDT) TSH cancelled 0.3 - 4.2 uU/mL [facility] TSH 1.62 0.3 - 4.2 uU/mL [facility] Comment:This test is a third generation TSH assay. Blood specimen (specimen) 12/25/2015 10:09 AM EDT Osmel Briscoe MD LAB BLOOD ORDERABLES Final R esult Performing Organization Address City/[facility] Co de Phone Number [facility] [address] [place] [phone] * (ABNORMAL) CBC and differential (12/25/2015 10:09 AM EDT) Pathologist [facility] CBC with Differential See Below [facility] Monocytes 10 2 - 15 % [facility] Eosinophils 1 0 - 5 % [facility] Basophils 0 0 - 2 % [facility] ANC (Abs Neutrophil Count) 8.1 1.0 - 9.0 x 1000/uL [facility] Absolute Lymphocyte Count 0.7 0.6 - 4.6 x 1000/uL [facility] Blood specimen (specimen) ARM NEC / Unknown 12/25/2015 10:09 AM EDT us Osmel Briscoe MD LAB BLOOD ORDERABLES Final R esult [facility] [address] [place] [address] documented in this encounter Visit Diagnoses Diagnosis [...] as of this encounter Care Teams Chronic Manager Relationship Specialty Start Date End Date Caitlyn Bowie MD [address] [address] PCP - General Internal Medicine 05/06/21 Henry Kelly MD Pulmonary Department 175 [facility], [address] [place] [address] Physician Pulmonary Disease 09/06/17 06/22/20 documented as of this encounter
--- OUTSIDE RECORDS SUMMARY | 2024-11-04 17:54 | XMS_ITS | Encounter Summary ---
Author Organization [facility] Address [address] [place] [address] Care Team Providers Care Mine Production Engineer Name Role Phone Caitlyn Bowie MD Primary Care Provider +1- [phone] Encounter Details Date Type Department Care Team (Late st Contact Info) Description 01/28/2019 Scanned Document [facility] Health Information Management [address] [place] [address] External, Provider Social History Tobacco Use [...] [facility] [address] [facility] [address] [place] [address] Ronald Mills MD [address] [place] [address] [address] [place] [address] documented as of this encounter Visit Diagnoses Not on filedocumented in this encounter Additional Health Concerns Infection Onset Date Last Indicated Resolved Time COVID-19 03/05/2022 03/05/2022 03/15/2022 7:18 PM EDT Assessment Noted Time PHQ-9 Depression Total Score: 2 11/07/19 19 2:06 PM EDT documented as of this encounter Care Teams Mine Production Engineer Relationship Specialty Start Date End Date Caitlyn Bowie MD 3400 [facility] 1 [place] [address] PCP - General Internal Medicine 05/06/21 Henry Kelly MD Pulmonary Department 175 [facility], [address] [place] [address] Physician Pulmonary Disease 09/06/17 06/22/20 documented as of this encounter
--- OUTSIDE RECORDS SUMMARY | 2024-11-04 17:54 | XMS_ITS | Encounter Summary ---
Author Organization [facility] Address [address] [place] [address] Care Team Providers Care Group Practice Pediatrician Name Role Phone Caitlyn Bowie MD Primary Care Provider +1- [phone] Encounter Details Date Type Department Care Team (Late st Contact Info) Description 12/01/2015 Scanned Document [facility] Health Information Management [address] [place] [phone] External, Provider Social History Tobacco Use Types [...] [facility] 240 [facility] Building [address] [place], [place] [phone] Ronald Mills MD 240 [facility] [address] [place] [address] documented as of this encounter Procedures Procedure Name Priority Date/Time Associated Diagnosis Comments CT RESULT SCAN Routine 12/01/2015 documented in this encounter Results * CT Result Scan (12/01/2015) us Provider External IMG SCAN REPORTS Edited Result - Final [facility] [place], [facility] documented in this encounter Visit Diagnoses Not on filedocumented in this encounter Additional Health Concerns Infection Onset Date Last Indicated Resolved Time COVID-19 03/05/2022 03/05/2022 03/15/2022 7:18 PM EDT documented as of this encounter Care Teams Group Practice Pediatrician Relationship Specialty Start Date End Date Caitlyn Bowie MD 3400 [facility] Max 1 [place] [address] PCP - General Internal Medicine 05/06/21 Henry Kelly MD Pulmonary Department 175 [facility], [address] [place] [address] Physician Pulmonary Disease 09/06/17 06/22/20 documented as of this encounter
--- OUTSIDE RECORDS SUMMARY | 2024-11-04 17:54 | XMS_ITS | Encounter Summary ---
Author Organization [facility] Address [address] [place] [address] Care Team Providers Care Rig Welder Name Role Phone Caitlyn Bowie MD Primary Care Provider +1- [phone] Encounter Details Date Type Department Care Team (Late st Contact Info) Description 01/28/2019 Scanned Document Cardiovascular Medicine at [address] [place] [address] Cristian Arreguin MBBS [address] [place] [address] Social History Tobacco Use Types [...] PM EDT Telemedicine Cancer Center at [address] [place] [address] Ronald Mills MD [address] [place] [address] [address] [place] [address] documented as of this encounter Visit Diagnoses Not on filedocumented in this encounter Additional Health Concerns Infection Onset Date Last Indicated Resolved Time COVID-19 03/05/2022 03/05/2022 03/15/2022 7:18 PM EDT Assessment Noted Time PHQ-9 Depression Total Score: 2 11/07/19 19 2:06 PM EDT documented as of this encounter Care Teams Rig Welder Relationship Specialty Start Date End Date Caitlyn Bowie MD 3400 [facility] 1 [place] [address] PCP - General Internal Medicine 05/06/21 Henry Kelly MD Pulmonary Department [address] [place] [address], [address] [place] [address] Physician Pulmonary Disease 09/06/17 06/22/20 documented as of this encounter
--- OUTSIDE RECORDS SUMMARY | 2024-11-04 17:54 | XMS_ITS | Encounter Summary ---
Author Organization [facility] and [facility] Address [address] [place] [address] Care Team Providers Care Photographer Motion Picture Name Role Phone Caitlyn Bowie MD Primary Care Provider +1- [phone] Encounter Details Date Type Department Care Team (Late st Contact Info) Description 03/12/2019 Scanned Document [facility] Health Information Management [address] [place] [address] External, Provider Social History Tobacco Use Types [...] [facility] 240 [facility] [address] [place] [address] Ronald Mills MD [address] [place] [address] [address]1 [place] [address] documented as of this encounter [...] as of this encounter Care Teams Photographer Motion Picture Relationship Specialty Start Date End Date Caitlyn Bowie MD 3400 [facility] 1 [place] [address] PCP - General Internal Medicine 05/06/21 Henry Kelly MD Pulmonary Department 175 [facility], [address] [place] [address] Physician Pulmonary Disease 09/06/17 06/22/20 documented as of this encounter
--- OUTSIDE RECORDS SUMMARY | 2024-11-04 17:54 | XMS_ITS | Encounter Summary ---
Author Organization [facility] and [facility] Address [address] [place] [address] Care Team Providers Care Critical Care Educator Name Role Phone Caitlyn Bowie MD Primary Care Provider +1- [phone] Encounter Details Date Type Department Care Team (Late st Contact Info) Description 02/06/2019 Scanned Document [facility] Health Information Management [address] [place] [phone] External, Provider Social History Tobacco Use Types [...] [facility] 240 [facility] Building [address] [place] [address] Ronald Mills MD [address] [place] [address] [address]1 [place] [address] documented as of this encounter [...] of this encounter Care Teams Critical Care Educator Relationship Specialty Start Date End Date Caitlyn Bowie MD 3400 [facility] 1 [place] [address] PCP - General Internal Medicine 05/06/21 Henry Kelly MD Pulmonary Department 175 [facility], [address] [place] [address] Physician Pulmonary Disease 09/06/17 06/22/20 documented as of this encounter
--- OUTSIDE RECORDS SUMMARY | 2024-11-04 17:54 | XMS_ITS | Encounter Summary ---
Author Organization [facility] and [facility] Address [address] [place] [address] Care Team Providers Care Kennel Aide Name Role Phone Caitlyn Bowie MD Primary Care Provider +1- [phone] Encounter Details Date Type Department Care Team (Late st Contact Info) Description 12/29/2021 Telephone [facility] at [address] - [address] [address] Ronald Mills MD [address] [place] [address] Social History Tobacco Use Types Packs/Day [...] not sure where the blood's coming from. [phone] documented in this encounter Plan of Treatment Upcoming Encounters Date Type Department Care Team (Late st Contact Info) Description 04/25/2025 4:00 PM EDT Telemedicine [facility] 240 [facility] Building [address] [place] [address] Ronald Mills MD 240 [facility] A1 [place] [address] documented as of this encounter Visit Diagnoses Not on filedocumented in this encounter Additional Health Concerns Infection Onset Date Last Indicated Resolved Time COVID-19 03/05/2022 03/05/2022 03/15/2022 7:18 PM EDT Assessment Noted Time PHQ-9 Depression Total Score: 2 11/07/19 19 2:06 PM EDT documented as of this encounter Care Teams Kennel Aide Relationship Specialty Start Date End Date Caitlyn Bowie MD [address] [address] PCP - General Internal Medicine 05/06/21 documented as of this encounter
--- OUTSIDE RECORDS SUMMARY | 2024-11-04 17:54 | XMS_ITS | Encounter Summary ---
Author Organization [facility] and [facility] Address [address] [place] [address] Care Team Providers Care Heart Surgeon Name Role Phone Caitlyn Bowie MD Primary Care Provider +1- [phone] Encounter Details Date Type Department Care Team (Late st Contact Info) Description 04/12/2022 Scanned Document INTERFACE DEFAULT [address] [place] [address] System, Provider Not In Social History Tobacco [...] [facility] 240 [facility] Building [address] [place] [address] Ronald Mills MD [address] [place] [address] [address] [place] [address] documented as of this encounter [...] as of this encounter Care Teams Heart Surgeon Relationship Specialty Start Date End Date Caitlyn Bowie MD [address] [address] PCP - General Internal Medicine 05/06/21 documented as of this encounter
--- OUTSIDE RECORDS SUMMARY | 2024-11-04 17:54 | XMS_ITS | Clinical Summary ---
Author Organization [facility] Address [address] [place] [address] Care Team Providers Care Cardiac Nurse Name Role Phone Caitlyn Bowie Primary Care Provider [phone] Allergies Active Allergy Reactions Criticality Noted Date [...] Throat tightness Throat tightness Throat tightness Ipratropium [place] Unknown Medium 12/18/2021 Isosorbide Mononitrate 11/23/2020 Other [...] topic Insurance MEDICARE PART A & B [facility] Care Teams Cardiac Nurse Relationship Specialty Start Date End Date Caitlyn Bowie [address] [place] [address] PCP - General Internal Medicine 07/18/22
--- OUTSIDE RECORDS SUMMARY | 2024-11-04 17:54 | XMS_ITS | Encounter Summary ---
Author Organization [facility] Address [address] [place] [address] Care Team Providers Care Precision Printing Worker Name Role Phone Caitlyn Bowie MD Primary Care Provider +1- [phone] Encounter Details Date Type Department Care Team (Late st Contact Info) Description 01/26/2019 Scanned Document [facility] Health Information Management [address] [place] [address] External, Provider Social History Tobacco Use Types [...] [facility] 240 [facility] Building [address] [place] [address] Ronald Mills MD [address] [place] [address] [address]1 [place] [address] documented as of this encounter [...] as of this encounter Care Teams Precision Printing Worker Relationship Specialty Start Date End Date Caitlyn Bowie MD 3400 [facility] 1 [place] [address] PCP - General Internal Medicine 05/06/21 Henry Kelly MD Pulmonary Department 175 [facility], [address] [place] [address] Physician Pulmonary Disease 09/06/17 06/22/20 documented as of this encounter
--- OUTSIDE RECORDS SUMMARY | 2024-11-04 17:54 | XMS_ITS | Encounter Summary ---
Author Organization [facility] and [facility] Address [address] [place] [address] Care Team Providers Care Science Teacher Name Role Phone Caitlyn Bowie MD Primary Care Provider +1- [phone] Encounter Details Date Type Department Care Team (Late st Contact Info) Description 12/16/2015 Scanned Document [facility] Health Information Management [address] [place] [address] External, Provider Social History Tobacco Use Types [...] [facility] 240 [facility] Building [address] [place], [place] [phone] Ronald Mills MD 240 [facility] [address] [place] [address] documented as of this encounter Procedures Procedure Name Priority Date/Time Associated Diagnosis Comments US RESULT SCAN Routine 12/16/2015 documented in this encounter Results * US Result Scan (12/16/2015) us Provider External IMG SCAN REPORTS Edited Result - Final [facility] [place], [place], [facility] documented in this encounter Visit Diagnoses Not on filedocumented in this encounter Additional Health Concerns Infection Onset Date Last Indicated Resolved Time COVID-19 03/05/2022 03/05/2022 03/15/2022 7:18 PM EDT documented as of this encounter Care Teams Science Teacher Relationship Specialty Start Date End Date Caitlyn Bowie MD 3400 [facility] Max 1 [place] [address] PCP - General Internal Medicine 05/06/21 Henry Kelly MD Pulmonary Department 175 [facility], [address] [place] [address] Physician Pulmonary Disease 09/06/17 06/22/20 documented as of this encounter
--- OUTSIDE RECORDS SUMMARY | 2024-11-04 17:54 | XMS_ITS | Encounter Summary ---
Author Organization [facility] and [facility] Address [address] [place] [address] Care Team Providers Care Friction Saw Operator Name Role Phone Caitlyn Bowie MD Primary Care Provider +1- [phone] Encounter Details Date Type Department Care Team (Late st Contact Info) Description 04/16/2022 Scanned Document INTERFACE DEFAULT [address] [place] [address] System, Provider Not In Social History Tobacco [...] [facility] 240 [facility] Building [address] [place], [place] [phone] Ronald Mills MD [address] [place] [address] [address] [place] [address] documented as of this encounter [...] documented as of this encounter Care Teams Friction Saw Operator Relationship Specialty Start Date End Date Caitlyn Bowie MD [address] [address] PCP - General Internal Medicine 05/06/21 documented as of this encounter
--- OUTSIDE RECORDS SUMMARY | 2024-11-04 17:54 | XMS_ITS | Encounter Summary ---
Author Organization [facility] Address [address] [place] [address] Care Team Providers Care Crew Truck Driver Name Role Phone Caitlyn Bowie MD Primary Care Provider +1- [phone] Encounter Details Date Type Department Care Team (Late st Contact Info) Description 12/27/2018 Scanned Document [facility] Health Information Management [address] [place] [address] External, Provider Social History Tobacco Use Types [...] [facility] 240 [facility] Building [address] [place] [address] Ronald Mills MD [address] [place] [address] [address]1 [place] [address] documented as of [...] as of this encounter Care Teams Crew Truck Driver Relationship Specialty Start Date End Date Caitlyn Bowie MD 3400 [facility] 1 [place] [address] PCP - General Internal Medicine 05/06/21 Henry Kelly MD Pulmonary Department 175 [facility], [address] [place] [address] Physician Pulmonary Disease 09/06/17 06/22/20 documented as of this encounter
--- OUTSIDE RECORDS SUMMARY | 2024-11-04 17:54 | XMS_ITS | Encounter Summary ---
Author Organization [facility] and [facility] Address [address] [place] [address] Care Team Providers Care Analyst Microbiology Lab Name Role Phone Caitlyn Bowie MD Primary Care Provider +1- [phone] Encounter Details Date Type Department Care Team (Late st Contact Info) Description 01/02/2019 Scanned Document [facility] Health Information Management [address] [place] [address] External, Provider Social History Tobacco Use Types [...] [facility] 240 [facility] Building [address] [place] [address] Ronald Mills MD [address] [place] [address] [address] [place] [address] documented as of this encounter [...] as of this encounter Care Teams Analyst Microbiology Lab Relationship Specialty Start Date End Date Caitlyn Bowie MD 3400 [facility] 1 [place] [address] PCP - General Internal Medicine 05/06/21 Henry Kelly MD Pulmonary Department 175 [facility], [address] [place] [address] Physician Pulmonary Disease 09/06/17 06/22/20 documented as of this encounter
--- OUTSIDE RECORDS SUMMARY | 2024-11-04 17:54 | XMS_ITS | Encounter Summary ---
Author Organization [facility] Address [address] [place] [address] Care Team Providers Care Toaster Operator Name Role Phone Caitlyn Bowie MD Primary Care Provider +1- [phone] Encounter Details Date Type Department Care Team (Late st Contact Info) Description 11/04/2015 Scanned Document [facility] Health Information Management [address] [place] [address] External, Provider Social History Tobacco Use Types [...] [facility] Building [address] [place], [place] [address] Ronald Mills MD 240 [facility] Max [address]1 [place] [address] documented as of this encounter Procedures Procedure Name Priority Date/Time Associated Diagnosis Comments NUC MED/PET RESULT SCAN Routine 11/04/2015 documented in this encounter Results * Nuc Med/PET Result Scan (11/04/2015) us Provider External IMG SCAN REPORTS Edited Result - Final [facility] [place], [place], [facility] documented in this encounter Visit Diagnoses Not on filedocumented in this encounter Additional Health Concerns Infection Onset Date Last Indicated Resolved Time COVID-19 03/05/2022 03/05/2022 03/15/2022 7:18 PM EDT documented as of this encounter Care Teams Toaster Operator Relationship Specialty Start Date End Date Caitlyn Bowie MD 3400 [facility] Max 1 [place] [address] PCP - General Internal Medicine 05/06/21 Henry Kelly MD Pulmonary Department 175 [facility], [address] [place] [address] Physician Pulmonary Disease 09/06/17 06/22/20 documented as of this encounter
--- OUTSIDE RECORDS SUMMARY | 2024-11-04 17:54 | XMS_ITS | Encounter Summary ---
Author Organization [facility] and [facility] Address [address] [place] [address] Care Team Providers Care Rn Access Name Role Phone Caitlyn Bowie MD Primary Care Provider +1- [phone] Encounter Details Date Type Department Care Team (Late st Contact Info) Description 04/19/2024 Scanned Document INTERFACE DEFAULT [address] [place] [address] System, Provider Not In Social History Tobacco [...] [facility] 240 [facility] Building [address] [place], [place] [address] Ronald Mills MD [address] [place] [address] [address] [place] [address] documented as of this encounter [...] as of this encounter Care Teams Rn Access Relationship Specialty Start Date End Date Caitlyn Bowie MD [address] [address] PCP - General Internal Medicine 05/06/21 documented as of this encounter
--- OUTSIDE RECORDS SUMMARY | 2024-11-04 17:54 | XMS_ITS | Encounter Summary ---
Author Organization [facility] and [facility] Address [address] [place] [address] Care Team Providers Care Supervisor Locomotive Name Role Phone Caitlyn Bowie MD Primary Care Provider +1- [phone] Encounter Details Date Type Department Care Team (Late st Contact Info) Description 03/02/2022 Scanned Document [facility] Health Information Management [address] [place] [address] External, Provider Social History Tobacco Use Types [...] [facility] 240 [facility] Building [address] [place], [place] [address] Ronald Mills MD [address] [place] [address] [address]1 [place] [address] documented as of this encounter Visit Diagnoses Not on filedocumented in this encounter Additional Health Concerns Infection Onset Date Last Indicated Resolved Time COVID-19 03/05/2022 03/05/2022 03/15/2022 7:18 PM EDT Assessment Noted Time PHQ-9 Depression Total Score: 2 11/07/19 19 2:06 PM EDT documented as of this encounter Care Teams Supervisor Locomotive Relationship Specialty Start Date End Date Caitlyn Bowie MD [address] [address] PCP - General Internal Medicine 05/06/21 documented as of this encounter
--- OUTSIDE RECORDS SUMMARY | 2024-11-04 17:54 | XMS_ITS | Encounter Summary ---
Author Organization [facility] and [facility] Address [address] [place] [address] Care Team Providers Care Systems Eng Name Role Phone Caitlyn Bowie MD Primary Care Provider +1- [phone] Encounter Details Date Type Department Care Team (Late Contact Info) Description 04/12/2022 Scanned Document [facility] Health Information Management [address] [place] [address] External, Provider Social History Tobacco Use Types [...] Telemedicine [facility] 240 [facility] Building [address] [place], [place] [address] Ronald Mills MD [address] [place] [address] [address]1 [place] [address] documented as of this encounter [...] as of this encounter Care Teams Systems Eng Relationship Specialty Start Date End Date Caitlyn Bowie MD [address] [address] PCP - General Internal Medicine 05/06/21 documented as of this encounter
--- OUTSIDE RECORDS SUMMARY | 2024-11-04 17:54 | XMS_ITS | Encounter Summary ---
Author Organization [facility] Address [address] [place] [address] Care Team Providers Care Control And Recovery Special Tactics Name Role Phone Pcp, No Primary Care Provider Brennan Mario MD Primary Care Provider [phone] Caitlyn Bowie MD Primary Care Provider +1- [phone] Encounter Details Date Type Department Care Team (Late st Contact Info) Description 01/04/2022 Scanned Document [facility] Neurology Ophthalmology [address] [address] Yary Whitten DO [address] [place] [address] Social History Tobacco Use Types Packs/Day [...] filedocumented in this encounter Care Teams Control And Recovery Special Tactics Relationship Specialty Start Date End Date Pcp, No PCP - General General Medicine 10/04/21 07/18/22 Brennan Burnett MD [address] [place] [address] PCP - General 07/19/22 03/19/23 Caitlyn Bowie MD 3400 [place] [address] PCP - General Internal Medicine 03/20/23 documented as of this encounter
--- OUTSIDE RECORDS SUMMARY | 2024-11-04 17:54 | XMS_ITS | Encounter Summary ---
Author Organization [facility] Address [address] [place] [address] Care Team Providers Care Assistant Technician Name Role Phone Caitlyn Bowie MD Primary Care Provider +1- [phone] Encounter Details Date Type Department Care Team (Late st Contact Info) Description 04/11/2019 Scanned Document [facility] Health Information Management [address] [place] [address] External, Provider Social History Tobacco Use Types [...] [facility] 240 [facility] Building [address] [place] [address] Ronald Mills MD [address] [place] [address] [address]1 [place] [address] documented as of this encounter [...] as of this encounter Care Teams Assistant Technician Relationship Specialty Start Date End Date Caitlyn Bowie MD 3400 [facility] 1 [place] [address] PCP - General Internal Medicine 05/06/21 Henry Kelly MD Pulmonary Department 175 [facility], [address] [place] [address] Physician Pulmonary Disease 09/06/17 06/22/20 documented as of this encounter
--- OUTSIDE RECORDS SUMMARY | 2024-11-04 17:54 | XMS_ITS | Encounter Summary ---
Author Organization [facility] Address [address] [place] [address] Care Team Providers Care Housing Specialist Name Role Phone Caitlyn Bowie MD Primary Care Provider +1- [phone] Encounter Details Date Type Department Care Team (Late st Contact Info) Description 01/30/2019 Scanned Document [facility] Health Information Management [address] [place] [address] External, Provider Social History Tobacco Use Types [...] [facility] 240 [facility] Building [address] [place] [address] Ronald Mills MD [address] [place] [address] [address] [place] [address] documented as of this encounter [...] as of this encounter Care Teams Housing Specialist Relationship Specialty Start Date End Date Caitlyn Bowie MD 3400 [facility] 1 [place] [address] PCP - General Internal Medicine 05/06/21 Henry Kelly MD Pulmonary Department 175 [facility], [address] [place] [address] Physician Pulmonary Disease 09/06/17 06/22/20 documented as of this encounter
--- OUTSIDE RECORDS SUMMARY | 2024-11-04 17:54 | XMS_ITS | Encounter Summary ---
Author Organization [facility] Address [address] [place] [address] Care Team Providers Care Ship Wirer Name Role Phone Caitlyn Bowie MD Primary Care Provider +1- [phone] Encounter Details Date Type Department Care Team (Late st Contact Info) Description 12/28/2018 Scanned Document [facility] Health Information Management [address] [place] [address] External, Provider Social History Tobacco Use Types [...] [facility] 240 [facility] Building [address] [place] [address] Ronald Mills MD [address] [place] [address] [address] [place] [address] documented as of this encounter [...] as of this encounter Care Teams Ship Wirer Relationship Specialty Start Date End Date Caitlyn Bowie MD 3400 [facility] Max 1 [place] [address] PCP - General Internal Medicine 05/06/21 Henry Kelly MD Pulmonary Department 175 [facility], [address] [place] [address] Physician Pulmonary Disease 09/06/17 06/22/20 documented as of this encounter
--- OUTSIDE RECORDS SUMMARY | 2024-11-04 17:54 | XMS_ITS | Encounter Summary ---
Author Organization [facility] and [facility] Address [address] [place] [address] Care Team Providers Care Dry Cleaning Counter Clerk Name Role Phone Caitlyn Bowie MD Primary Care Provider +1- [phone] Encounter Details Date Type Department Care Team (Late st Contact Info) Description 04/22/2019 Scanned Document [facility] Health Information Management [address] [place] [address] External, Provider Social History Tobacco Use Types [...] [facility] 240 [facility] Building [address] [place] [address] Ronald Mills MD [address] [place] [address] [address] [place] [address] documented as of this encounter Visit Diagnoses Not on filedocumented in this encounter Additional Health Concerns Infection Onset Date Last Indicated Resolved Time COVID-19 03/05/2022 03/05/2022 03/15/2022 7:18 PM EDT Assessment Noted Time PHQ-9 Depression Total Score: 2 11/07/19 19 2:06 PM EDT documented as of this encounter Care Teams Dry Cleaning Counter Clerk Relationship Specialty Start Date End Date Caitlyn Bowie MD 3400 [facility] 1 [place] [address] PCP - General Internal Medicine 05/06/21 Henry Kelly MD Pulmonary Department 175 [facility], [address] [place] [address] Physician Pulmonary Disease 09/06/17 06/22/20 documented as of this encounter
--- OUTSIDE RECORDS SUMMARY | 2024-11-04 17:54 | XMS_ITS | Encounter Summary ---
Author Organization [facility] Address [address] [place] [address] Care Team Providers Care Insurance Sales Manager Name Role Phone Caitlyn Bowie MD Primary Care Provider +1- [phone] Encounter Details Date Type Department Care Team (Late st Contact Info) Description 03/20/2023 Scanned Document [facility] Radiology [address] [place] [address] Caitlyn Bowie MD [address] [place] [address] Social History Tobacco Use Types Packs/Day Years [...] on filedocumented in this encounter Care Teams Insurance Sales Manager Relationship Specialty Start Date End Date Caitlyn Bowie MD [address] [place] [address] PCP - General Internal Medicine 03/20/23 documented as of this encounter
--- OUTSIDE RECORDS SUMMARY | 2024-11-04 17:54 | XMS_ITS | Encounter Summary ---
Author Organization [facility] and [facility] Address [address] [place] [address] Care Team Providers Care Hot Kettle Tender Name Role Phone Caitlyn Bowie MD Primary Care Provider +1- [phone] Encounter Details Date Type Department Care Team (Late st Contact Info) Description 04/19/2022 Scanned Document INTERFACE DEFAULT [address] [place] [address] System, Provider Not In Social History Tobacco [...] [facility] 240 [facility] Building [address] [place], [place] [phone] Ronald Mills MD [address] [place] [address] [address] [place] [address] documented as of this encounter [...] as of this encounter Care Teams Hot Kettle Tender Relationship Specialty Start Date End Date Caitlyn Bowie MD [address] [address] PCP - General Internal Medicine 05/06/21 documented as of this encounter
--- OUTSIDE RECORDS SUMMARY | 2024-11-04 17:54 | XMS_ITS | Encounter Summary ---
Author Organization [facility] and [facility] Address [address] [place] [address] Care Team Providers Care Classifier Operator Name Role Phone Caitlyn Bowie MD Primary Care Provider +1- [phone] Encounter Details Date Type Department Care Team (Late st Contact Info) Description 01/08/2022 Scanned Document INTERFACE DEFAULT [address] [place] [address] System, Provider Not In Social History Tobacco [...] [facility] [address] [facility] Building [address] [place], [place] [phone] Ronald Mills MD [address] [place] [address] [address] [place] [address] documented as of this encounter [...] documented as of this encounter Care Teams Classifier Operator Relationship Specialty Start Date End Date Caitlyn Bowie MD [address] [address] PCP - General Internal Medicine 05/06/21 documented as of this encounter
--- OUTSIDE RECORDS SUMMARY | 2024-11-04 17:54 | XMS_ITS | Encounter Summary ---
Author Organization [facility] Address [address] [place] [address] Care Team Providers Care Supervisor Continuous Weld Pipe Mill Name Role Phone Caitlyn Bowie MD Primary Care Provider +1- [phone] Encounter Details Date Type Department Care Team (Late st Contact Info) Description 01/13/2019 Scanned Document [facility] Health Information Management [address] [place] [address] External, Provider Social History Tobacco Use Types [...] [facility] 240 [facility] Building [address] [place] [address] Ronald Mills MD [address] [place] [address] [address] [place] [address] documented as of this encounter [...] as of this encounter Care Teams Supervisor Continuous Weld Pipe Mill Relationship Specialty Start Date End Date Caitlyn Bowie MD 3400 [facility] 1 [place] [address] PCP - General Internal Medicine 05/06/21 Henry Kelly MD Pulmonary Department [address] [facility], [address] [place] [address] Physician Pulmonary Disease 09/06/17 06/22/20 documented as of this encounter
--- OUTSIDE RECORDS SUMMARY | 2024-11-04 17:54 | XMS_ITS ---
Author Organization [employer] [facility] Address [address] [address] Care Team Providers Care Engineering Aide Name Role Phone EVELIN RAMSAY Primary Care Provider Yenny Hou Unavailable [phone] REASON FOR [facility]IT [facility] ifect disease dept Encounters Encounter Location Date Provider Diagnosis [facility] [employer] [address] [address] 06/11/2024 Yenny Elizalde Plan Of Treatment No Information Progress Notes * ONOFRE WATSON:1945 (79 yo F)Acc No.[id number]:06/11/2024 Patient:?CINDA WATOSN :1945???Age:79 Y???Sex:Female Address:[address] [place] [address], [address] * true * Date:? Generated for Arely paige/Sebastian/eTransmitting on:?11/04/2024 05:54 PM EDT
--- OUTSIDE RECORDS SUMMARY | 2024-11-04 17:54 | XMS_ITS | Encounter Summary ---
Author Organization [facility] and [facility] Address [address] [place] [address] Care Team Providers Care Blueprinter Name Role Phone Caitlyn Bowie MD Primary Care Provider +1- [phone] Encounter Details Date Type Department Care Team (Late st Contact Info) Description 04/13/2022 Scanned Document INTERFACE DEFAULT [address] [place] [address] System, Provider Not In Social History Tobacco [...] – [facility] 240 [facility] Building [address] [place], [place] [address] Ronald Mills MD [address] [place] [address] [address] [place] [address] documented as of this encounter [...] documented as of this encounter Care Teams Blueprinter Relationship Specialty Start Date End Date Caitlyn Bowie MD [address] [address] PCP - General Internal Medicine 05/06/21 documented as of this encounter
--- OUTSIDE RECORDS SUMMARY | 2024-11-04 17:54 | XMS_ITS | Encounter Summary ---
Author Organization [facility] Address [address] [place] [address] Care Team Providers Care Caddie Name Role Phone Caitlyn Bowie MD Primary Care Provider +1- [phone] Encounter Details Date Type Department Care Team (Late st Contact Info) Description 01/17/2019 Scanned Document [facility] Health Information Management [address] [place] [address] External, Provider Social History Tobacco Use Types [...] [facility] 240 [facility] [address] [place] [address] Ronald Mills MD [address] [place] [address] [address] [place] [address] documented as of this encounter [...] documented as of this encounter Care Teams Caddie Relationship Specialty Start Date End Date Caitlyn Bowie MD 3400 [facility] 1 [place] [address] PCP - General Internal Medicine 05/06/21 Henry Kelly MD Pulmonary Department 175 [facility], [address] [place] [address] Physician Pulmonary Disease 09/06/17 06/22/20 documented as of this encounter
--- OUTSIDE RECORDS SUMMARY | 2024-11-04 17:54 | XMS_ITS | Encounter Summary ---
Author Organization [facility] Address [address] [place] [address] Phone Care Team Providers Care Svp Monetization Name Role Phone Caitlyn Bowie MD Primary Care Provider +1- [phone] Encounter Details Date Type Department Care Team (Late st Contact Info) Description 10/01/2024 Documentation Only [facility] [address] [place] [address] [place], [place] [address] [place] [address] Social History Tobacco Use Types [...] [facility] [address] [place] [address] Rubén Ashraf MD [address] [facility] [place] [address] documented as of this encounter Visit Diagnoses Not on filedocumented in this encounter Care Teams Svp Monetization Relationship Specialty Start Date End Date Caitlyn Bowie MD [address] [place], [place] PCP - General Internal Medicine 09/24/24 documented as of this encounter
--- OUTSIDE RECORDS SUMMARY | 2024-11-04 17:54 | XMS_ITS | Encounter Summary ---
Author Organization [facility] Address [address] [place] [address] Care Team Providers Care Shell Trim Operator Name Role Phone Caitlyn Bowie MD Primary Care Provider +1- [phone] Encounter Details Date Type Department Care Team (Late st Contact Info) Description 01/09/2019 Scanned Document [facility] Health Information Management [address] [place] [address] External, Provider Social History Tobacco Use Types [...] [facility] 240 [facility] [address] [place] [address] Ronald Mills MD [address] [place] [address] [address] [place] [address] documented as of this encounter [...] documented as of this encounter Care Teams Shell Trim Operator Relationship Specialty Start Date End Date Caitlyn Bowie MD 3400 [facility] 1 [place] [address] PCP - General Internal Medicine 05/06/21 Henry Kelly MD Pulmonary Department 175 [facility], [address] [place] [address] Physician Pulmonary Disease 09/06/17 06/22/20 documented as of this encounter
--- OUTSIDE RECORDS SUMMARY | 2024-11-04 17:54 | XMS_ITS | Encounter Summary ---
Author Organization [facility] Address [address] [place] [address] Care Team Providers Care Sales Order Administrator Name Role Phone Caitlyn Bowie MD Primary Care Provider +1- [phone] Encounter Details Date Type Department Care Team (Late st Contact Info) Description 09/23/2024 Scanned Document INTERFACE DEFAULT [address] [place] [address] System, Provider Not In Social History Tobacco [...] at [facility] 240 [facility] Building [address] [place], [place] [address] Ronald Mills MD [address] [place] [address] [address] [place] [address] documented as of this [...] as of this encounter Care Teams Sales Order Administrator Relationship Specialty Start Date End Date Caitlyn Bowie MD [address] [address] PCP - General Internal Medicine 05/06/21 documented as of this encounter
--- OUTSIDE RECORDS SUMMARY | 2024-11-04 17:54 | XMS_ITS | Encounter Summary ---
Author Organization [facility] Address [address] [place] [address] Care Team Providers Care Loss Prevention Research Engineer Name Role Phone Caitlyn Bowie MD Primary Care Provider +1- [phone] Encounter Details Date Type Department Care Team (Late st Contact Info) Description 11/03/2015 Scanned Document [facility] Health Information Management [address] [place] [address] External, Provider Social History Tobacco Use Types [...] [facility] – [facility] 240 [facility] Building [address] [place], [place] [address] Ronald Mills MD 240 [facility] [address] [place] [address] documented as of this encounter Procedures Procedure Name Priority Date/Time Associated Diagnosis Comments US RESULT SCAN Routine 11/03/2015 documented in this encounter Results * US Result Scan (11/03/2015) us Provider External IMG SCAN REPORTS Edited Result - Final [facility] [place], [place], [email or web address]] documented in this encounter Visit Diagnoses Not on filedocumented in this encounter Additional Health Concerns Infection Onset Date Last Indicated Resolved Time COVID-19 03/05/2022 03/05/2022 03/15/2022 7:18 PM EDT documented as of this encounter Care Teams Loss Prevention Research Engineer Relationship Specialty Start Date End Date Caitlyn Bowie MD 3400 [facility] Max 1 [place] [address] PCP - General Internal Medicine 05/06/21 Henry Kelly MD Pulmonary Department 175 [facility], [address] [place] [address] Physician Pulmonary Disease 09/06/17 06/22/20 documented as of this encounter
--- OUTSIDE RECORDS SUMMARY | 2024-11-04 17:54 | XMS_ITS | Encounter Summary ---
Author Organization [facility] Address [address] [place] [address] Care Team Providers Care Plug Assembler Name Role Phone Caitlyn Bowie MD Primary Care Provider +1- [phone] Encounter Details Date Type Department Care Team (Late st Contact Info) Description 12/03/2015 Scanned Document [facility] Health Information Management [address] [place] [address] External, Provider Social History Tobacco Use Types [...] [facility] 240 [facility] Building [address] [place], [place] [phone] Ronald Mills MD 240 [facility] [address] [place] [address] documented as of this encounter Procedures Procedure Name Priority Date/Time Associated Diagnosis Comments LAB SCAN Routine 12/03/2015 documented in this encounter Results * Lab Scan (12/03/2015) Blood specimen (specimen) us Provider External LAB BLOOD ORDERABLES Edited Re sult - Final [facility] documented in this encounter Visit Diagnoses Not on filedocumented in this encounter Additional Health Concerns Infection Onset Date Last Indicated Resolved Time COVID-19 03/05/2022 03/05/2022 03/15/2022 7:18 PM EDT documented as of this encounter Care Teams Plug Assembler Relationship Specialty Start Date End Date Caitlyn Bowie MD 3400 [facility] 1 [place] [address] PCP - General Internal Medicine 05/06/21 Henry Kelly MD Pulmonary Department 175 [facility], [address] [place] [address] Physician Pulmonary Disease 09/06/17 06/22/20 documented as of this encounter
--- OUTSIDE RECORDS SUMMARY | 2024-11-04 17:54 | XMS_ITS | Encounter Summary ---
Author Organization [facility] Address [address] [place] [address] Care Team Providers Care Cement Worker Name Role Phone Caitlyn Bowie MD Primary Care Provider +1- [phone] Encounter Details Date Type Department Care Team (Late st Contact Info) Description 02/08/2016 Scanned Document [facility] Health Information Management [address] [place] [address] External, Provider Social History Tobacco Use Types [...] [facility] 240 [facility] Building [address] [place], [place] [address] Ronald Mills MD 240 [facility] A1 [place] [address] documented as of this encounter Visit Diagnoses Not on filedocumented in this encounter Additional Health Concerns Infection Onset Date Last Indicated Resolved Time COVID-19 03/05/2022 03/05/2022 03/15/2022 7:18 PM EDT documented as of this encounter Care Teams Cement Worker Relationship Specialty Start Date End Date Caitlyn Bowie MD 3400 [facility] 1 [place] [address] PCP - General Internal Medicine 05/06/21 Henry Kelly MD Pulmonary Department 175 [facility], [address] [place] [address] Physician Pulmonary Disease 09/06/17 06/22/20 documented as of this encounter
--- OUTSIDE RECORDS SUMMARY | 2024-11-04 17:54 | XMS_ITS | Encounter Summary ---
Author Organization [facility] Address [address] [place] [address] Care Team Providers Care Spear Fisher Name Role Phone Caitlyn Bowie MD Primary Care Provider +1- [phone] Reason for Visit * Reason Comments Results Encounter Details Date Type Department Care Team (Late st Contact Info) Description 03/15/2022 Telephone [facility] at [address] [address] Ronald Mills MD [address] [place] [address] Results Social History Tobacco Use Types [...] [facility] 240 [facility] Building [address] [place], [place] [address] Ronald Mills MD 240 [facility] [address] [place] [address] documented as of this encounter Visit Diagnoses Not on filedocumented in this encounter Additional Health Concerns Infection Onset Date Last Indicated Resolved Time COVID-19 03/05/2022 03/05/2022 03/15/2022 7:18 PM EDT Assessment Noted Time PHQ-9 Depression Total Score: 2 11/07/19 19 2:06 PM EDT documented as of this encounter Care Teams Spear Fisher Relationship Specialty Start Date End Date Caitlyn Bowie MD [address] [address] PCP - General Internal Medicine 05/06/21 documented as of this encounter
--- OUTSIDE RECORDS SUMMARY | 2024-11-04 17:54 | XMS_ITS | Encounter Summary ---
Author Organization [facility] Address [address] [place] [address] Care Team Providers Care Pulmonary Function Technologist Name Role Phone Caitlyn Bowie MD Primary Care Provider +1- [phone] Encounter Details Date Type Department Care Team (Late st Contact Info) Description 08/08/2024 Scanned Document INTERFACE DEFAULT [address] [place] [address] System, Provider Not In Social History Tobacco [...] [facility] 240 [facility] Building [address] [place], [place] [phone] Ronald Mills MD [address] [place] [address] [address] [place] [address] documented as of this encounter [...] documented as of this encounter Care Teams Pulmonary Function Technologist Relationship Specialty Start Date End Date Caitlyn Bowie MD [address] [address] PCP - General Internal Medicine 05/06/21 documented as of this encounter
--- OUTSIDE RECORDS SUMMARY | 2024-11-04 17:54 | XMS_ITS | Encounter Summary ---
Author Organization [facility] Address [address] [place] [address] Care Team Providers Care Sampler Pickup Name Role Phone Caitlyn Bowie MD Primary Care Provider +1- [phone] Encounter Details Date Type Department Care Team (Late st Contact Info) Description 04/14/2022 Scanned Document INTERFACE DEFAULT [address] [place] [address] System, Provider Not In Social History Tobacco [...] [facility] Building [address] [place] [address] Ronald Mills MD [address] [place] [address] [address] [place] [address] documented as of this encounter Visit Diagnoses Not on filedocumented in this encounter Additional Health Concerns Assessment Noted Time PHQ-9 Depression Total Score: 2 11/07/19 19 2:06 PM EDT documented as of this encounter Care Teams Sampler Pickup Relationship Specialty Start Date End Date Caitlyn Bowie MD [address] [address] PCP - General Internal Medicine 05/06/21 documented as of this encounter
--- OUTSIDE RECORDS SUMMARY | 2024-11-04 17:54 | XMS_ITS | Encounter Summary ---
Author Organization [facility] Address [address] [place] [address] Care Team Providers Care Fruit And Vegetable Inspector Name Role Phone Caitlyn Bowie MD Primary Care Provider +1- [phone] Encounter Details Date Type Department Care Team (Late st Contact Info) Description 09/15/2024 Scanned Document INTERFACE DEFAULT [address] [place] [address] System, Provider Not In Social History Tobacco [...] [facility] 240 [facility] Building [address] [place], [place] [phone] Ronald Mills MD [address] [place] [address] [address] [place] [address] documented as of this encounter [...] this encounter Care Teams Fruit And Vegetable Inspector Relationship Specialty Start Date End Date Caitlyn Bowie MD [address] [address] PCP - General Internal Medicine 05/06/21 documented as of this encounter
--- OUTSIDE RECORDS SUMMARY | 2024-11-04 17:55 | XMS_ITS | Encounter Summary ---
Author Organization [facility] Address [address] [place] [address] Care Team Providers Care Enrobing Machine Operator Name Role Phone Caitlyn Bowie MD Primary Care Provider +1- [phone] Reason for Referral * Imaging (Routine) - Closed Specialty Diagnoses / Procedures Referred By Contac t Referred To Contact Procedures NM Lung Ventilation Perfusion ([facility]) External, Provider Referral ID Status Reason Start Date Expiration Date Visits Re quested Visits Authorized [id number] Closed 08/22/2016 08/22/2017 4 4 Encounter Details Date Type Department Care Team (Late st Contact Info) Description 08/22/2016 Scanned Document Thoracic Oncology Program at [address] [address] External, Provider Social History Tobacco Use Types [...] 4:00 PM EDT Telemedicine Cancer Center at [address] [place] [address] Ronald Mills MD [address] [place] [address] Rd [address] [place] [address] documented as of this encounter Procedures Procedure Name Priority Date/Time Associated Diagnosis Comments XRAY RESULT SCAN Routine 07/27/2016 CT RESULT SCAN Routine 07/27/2016 CT RESULT SCAN Routine 07/27/2016 CARDIAC EKG RESULT SCAN Routine 07/27/2016 LAB SCAN Routine 07/27/2016 NM LUNG VENTILATION PERFUSIO N ([facility]) Routine 07/27/2016 documented in this encounter Results * Xray Result Scan (07/27/2016) us Provider External IMG SCAN REPORTS Final Result Performing Organization Address [facility] Co de Phone Number [facility] * CT Result Scan (07/27/2016) us Provider External IMG SCAN REPORTS Final Result Performing Organization Address [facility] Co de Phone Number [facility] * Cardiac EKG Result Scan (07/27/2016) us Provider External CV CARDIAC REPORT (CVR) Final Result Performing Organization Address [facility] Co de Phone Number [facility] * CT Result Scan (07/27/2016) us Provider External IMG SCAN REPORTS Final Result Performing Organization Address [facility] Co de Phone Number [facility] * Lab Scan (07/27/2016) Blood specimen (specimen) us Provider External LAB BLOOD ORDERABLES Final Res ult Performing Organization Address [facility] Co de Phone Number [facility] * NM Lung Ventilation Perfusion ([facility]) (07/27/2016) Anatomical Region Laterality Modality Chest, Lung Nuclear Medicine us Provider External IMG NM ORDERABLES Final Result documented in this encounter Visit Diagnoses Not on filedocumented in this encounter Additional Health Concerns Infection Onset Date Last Indicated Resolved Time COVID-19 03/05/2022 03/05/2022 03/15/2022 7:18 PM EDT documented as of this encounter Care Teams Enrobing Machine Operator Relationship Specialty Start Date End Date Caitlyn Bowie MD 3400 [facility] 1 [place] [address] PCP - General Internal Medicine 05/06/21 Henry Kelly MD Pulmonary Department 175 [facility], [address] [place] [address] Physician Pulmonary Disease 09/06/17 06/22/20 documented as of this encounter
--- OUTSIDE RECORDS SUMMARY | 2024-11-04 17:55 | XMS_ITS | Encounter Summary ---
Author Organization [facility] Address [address] [place] [address] Care Team Providers Care Supervisor Roller Printing Name Role Phone Caitlyn Bowie MD Primary Care Provider +1- [phone] Reason for Visit * Reason Onset Date Comments Other 10/25/2024 Triage 10/25/2024 Encounter Details Date Type Department Care Team (Late st Contact Info) Description 10/25/2024 Telephone [facility] at [facility] 35 [facility] [address] [place], [place] [address] Ronald Mills MD [address] [place] [phone] Other; Triage Social History Tobacco Use [...] calling-- states she received a call from radiocommunications technician physician the other night stating her potassium was very low and to recheck potassium again in a few days. She states she reached out to her Data Mining Analyst as suggested, however, she states they have not returned her call back and its been 2 days. She is concerned as she does not have an order to recheck. She states she lived in [place] and will need orders faxed to [facility] [phone] Please call patient to update. documented in this encounter Plan of Treatment Upcoming Encounters Date Type Department Care Team (Late st Contact Info) Description 04/25/2025 4:00 PM EDT Telemedicine Cancer Center at [facility] 240 [facility] [address] [place], [place] [phone] Ronald Mills MD 240 [facility] [address] [place] [phone] documented as of this encounter Visit Diagnoses Not on filedocumented in this encounter Additional Health Concerns Assessment Noted Time PHQ-9 Depression Total Score: 2 11/07/19 19 2:06 PM EDT documented as of this encounter Care Teams Supervisor Roller Printing Relationship Specialty Start Date End Date Caitlyn Bowie MD [address] [address] PCP - General Internal Medicine 05/06/21 documented as of this encounter
--- OUTSIDE RECORDS SUMMARY | 2024-11-04 17:55 | XMS_ITS | Encounter Summary ---
Author Organization [facility] and [facility] Address [address] [place] [address] Care Team Providers Care Insurance Account Executive Name Role Phone Caitlyn Bowie MD Primary Care Provider +1- [phone] Encounter Details Date Type Department Care Team (Late st Contact Info) Description 12/14/2016 Scanned Document [facility] Health Information Management [address] [place] [address] External, Provider Social History Tobacco Use Types [...] Cancer Center at [facility] 240 [facility] [address] [place], [place] [phone] Ronald Mills MD 240 [facility] A1 [place] [address] documented as of this encounter Visit Diagnoses Not on filedocumented in this encounter Additional Health Concerns Infection Onset Date Last Indicated Resolved Time COVID-19 03/05/2022 03/05/2022 03/15/2022 7:18 PM EDT documented as of this encounter Care Teams Insurance Account Executive Relationship Specialty Start Date End Date Caitlyn Bowie MD 3400 [facility] 1 [place] [address] PCP - General Internal Medicine 05/06/21 Henry Kelly MD Pulmonary Department 175 [facility], [address] [place] [address] Physician Pulmonary Disease 09/06/17 06/22/20 documented as of this encounter
--- OUTSIDE RECORDS SUMMARY | 2024-11-04 17:55 | XMS_ITS | Encounter Summary ---
Author Organization [facility] and [facility] Address [address] [place] [address] Care Team Providers Care Parachute Repairer Name Role Phone Caitlyn Bowie MD Primary Care Provider +1- [phone] Encounter Details Date Type Department Care Team (Late st Contact Info) Description 07/08/2016 Scanned Document [facility] Health Information Management [address] [place] [address] External, Provider Social History Tobacco Use Types [...] at [facility] 240 [facility] [address] [place], [place] [phone] Ronald Mills MD 240 [facility] [address] [place] [address] documented as of this encounter Procedures Procedure Name Priority Date/Time Associated Diagnosis Comments LAB SCAN Routine 07/08/2016 documented in this encounter Results * Lab Scan (07/08/2016) Blood specimen (specimen) us Provider External LAB BLOOD ORDERABLES Final Res ult [facility] documented in this encounter Visit Diagnoses Not on filedocumented in this encounter Additional Health Concerns Infection Onset Date Last Indicated Resolved Time COVID-19 03/05/2022 03/05/2022 03/15/2022 7:18 PM EDT documented as of this encounter Care Teams Parachute Repairer Relationship Specialty Start Date End Date Caitlyn Bowie MD 3400 [facility] 1 [place] [address] PCP - General Internal Medicine 05/06/21 Henry Kelly MD Pulmonary Department 175 [facility], [address] [place] [address] Physician Pulmonary Disease 09/06/17 06/22/20 documented as of this encounter
--- OUTSIDE RECORDS SUMMARY | 2024-11-04 17:55 | XMS_ITS | Encounter Summary ---
Author Organization [facility] and [facility] Address [address] [place] [address] Care Team Providers Care Granite Countertop Installer Name Role Phone Caitlyn Bowie MD Primary Care Provider +1- [phone] Encounter Details Date Type Department Care Team (Late st Contact Info) Description 06/17/2016 Scanned Document [facility] Health Information Management [address] [place] [address] External, Provider Social History Tobacco Use Types [...] [facility] at [facility] 240 [facility] Building [address] [place], [place] [phone] Ronald Mills MD 240 [facility] [address] [place] [address] documented as of this encounter Procedures Procedure Name Priority Date/Time Associated Diagnosis Comments XRAY RESULT SCAN Routine 06/17/2016 documented in this encounter Results * Xray Result Scan (06/17/2016) us Provider External IMG SCAN REPORTS Final Result [facility] [place], [place], [facility] documented in this encounter Visit Diagnoses Not on filedocumented in this encounter Additional Health Concerns Infection Onset Date Last Indicated Resolved Time COVID-19 03/05/2022 03/05/2022 03/15/2022 7:18 PM EDT documented as of this encounter Care Teams Granite Countertop Installer Relationship Specialty Start Date End Date Caitlyn Bowie MD 3400 [facility] 1 [place] [address] PCP - General Internal Medicine 05/06/21 Henry Kelly MD Pulmonary Department [address] [place] [address], [address] [place] [address] Physician Pulmonary Disease 09/06/17 06/22/20 documented as of this encounter
--- OUTSIDE RECORDS SUMMARY | 2024-11-04 17:55 | XMS_ITS | Encounter Summary ---
Author Organization [facility] and [facility] Address [address] [place] [address] Care Team Providers Care Bumboater Name Role Phone Caitlyn Bowie MD Primary Care Provider +1- [phone] Encounter Details Date Type Department Care Team (Late st Contact Info) Description 07/27/2016 Scanned Document Thoracic Oncology Program at [address] [address] Suzy Kong MD [address] [place] [phone] Social History Tobacco Use Types Packs/Day [...] PM EDT Telemedicine Cancer Center at [address] [place], [place] [phone] Ronald Mills MD 240 [facility] [address] [place] [address] documented as of this encounter Visit Diagnoses Not on filedocumented in this encounter Additional Health Concerns Infection Onset Date Last Indicated Resolved Time COVID-19 03/05/2022 03/05/2022 03/15/2022 7:18 PM EDT documented as of this encounter Care Teams Bumboater Relationship Specialty Start Date End Date Caitlyn Bowie MD 3400 [facility] Max 1 [place] [address] PCP - General Internal Medicine 05/06/21 Henry Kelly MD Pulmonary Department 175 [facility], [address] [place] [address] Physician Pulmonary Disease 09/06/17 06/22/20 documented as of this encounter
--- OUTSIDE RECORDS SUMMARY | 2024-11-04 17:55 | XMS_ITS | Encounter Summary ---
Author Organization [facility] and [facility] Address [address] [place] [address] Care Team Providers Care Preschool Disability Teacher Name Role Phone Caitlyn Bowie MD Primary Care Provider +1- [phone] Encounter Details Date Type Department Care Team (Late st Contact Info) Description 12/16/2016 Scanned Document [facility] Health Information Management [address] [place] [address] External, Provider Social History Tobacco Use [...] [facility] at [facility] 240 [facility] Building [address] [place], [place] [phone] Ronald Mills MD 240 [facility] [address] [place] [address] documented as of this encounter [...] as of this encounter Care Teams Preschool Disability Teacher Relationship Specialty Start Date End Date Caitlyn Bowie MD 3400 [facility] 1 [place] [address] PCP - General Internal Medicine 05/06/21 Henry Kelly MD Pulmonary Department 175 [facility], [address] [place] [address] Physician Pulmonary Disease 09/06/17 06/22/20 documented as of this encounter
--- OUTSIDE RECORDS SUMMARY | 2024-11-04 17:55 | XMS_ITS | Encounter Summary ---
Author Organization [facility] and [facility] Address [address] [place] [place] [address] Care Team Providers Care Clinical Pharmacy Specialist Name Role Phone Caitlyn Bowie MD Primary Care Provider +1- [phone] Encounter Details Date Type Department Care Team (Late st Contact Info) Description 04/08/2024 Scanned Document INTERFACE DEFAULT [address] [place] [address] System, Provider Not In Social History Tobacco [...] [facility] 240 [facility] Building [address] [place], [place] [phone] Ronald Mills MD [address] [place] [address] [address] [place] [address] documented as of this encounter [...] as of this encounter Care Teams Clinical Pharmacy Specialist Relationship Specialty Start Date End Date Caitlyn Bowie MD [address] [address] PCP - General Internal Medicine 05/06/21 documented as of this encounter
--- OUTSIDE RECORDS SUMMARY | 2024-11-04 17:55 | XMS_ITS | Encounter Summary ---
Author Organization [facility] and [facility] Address [address] [place] [address] Care Team Providers Care Email Marketing Specialist Name Role Phone Caitlyn Bowie MD Primary Care Provider +1- [phone] Encounter Details Date Type Department Care Team (Late st Contact Info) Description 04/04/2016 Scanned Document [facility] Health Information Management [address] [place] [address] External, Provider Social History Tobacco Use Types [...] [facility] 240 [facility] Building [address] [place], [place] [phone] Ronald Mills MD 240 [facility] [address] [place] [address] documented as of this encounter Procedures Procedure Name Priority Date/Time Associated Diagnosis Comments LAB SCAN Routine 04/04/2016 documented in this encounter Results * Lab Scan (04/04/2016) Blood specimen (specimen) us Provider External LAB BLOOD ORDERABLES Final Res ult [facility] documented in this encounter Visit Diagnoses Not on filedocumented in this encounter Additional Health Concerns Infection Onset Date Last Indicated Resolved Time COVID-19 03/05/2022 03/05/2022 03/15/2022 7:18 PM EDT documented as of this encounter Care Teams Email Marketing Specialist Relationship Specialty Start Date End Date Caitlyn Bowie MD 3400 [facility] 1 [place] [address] PCP - General Internal Medicine 05/06/21 Henry Kelly MD Pulmonary Department 175 [facility], [address] [place] [address] Physician Pulmonary Disease 09/06/17 06/22/20 documented as of this encounter
--- OUTSIDE RECORDS SUMMARY | 2024-11-04 17:55 | XMS_ITS | Encounter Summary ---
Author Organization [facility] and [facility] Address [address] [place] [address] Care Team Providers Care Suction Dredge Dumping Supervisor Name Role Phone Caitlyn Bowie MD Primary Care Provider +1- [phone] Encounter Details Date Type Department Care Team (Late st Contact Info) Description 10/23/2024 Scanned Document INTERFACE DEFAULT [address] [place] [address] System, Provider Not In Social History Tobacco [...] [facility] 240 [facility] Building [address] [place], [place] [phone] Ronald Mills MD [address] [place] [address] [address] [place] [address] documented as of this encounter [...] documented as of this encounter Care Teams Suction Dredge Dumping Supervisor Relationship Specialty Start Date End Date Caitlyn Bowie MD [address] [address] PCP - General Internal Medicine 05/06/21 documented as of this encounter
--- OUTSIDE RECORDS SUMMARY | 2024-11-04 17:55 | XMS_ITS | Encounter Summary ---
Author Organization [facility] and [facility] Address [address] [place] [address] Care Team Providers Care Fur Blender Name Role Phone Caitlyn Bowie MD Primary Care Provider +1- [phone] Encounter Details Date Type Department Care Team (Late st Contact Info) Description 04/23/2024 Scanned Document INTERFACE DEFAULT [address] [place] [address] System, Provider Not In Social History Tobacco [...] Cancer Center at [facility] 240 [facility] [address] [place], [place] [phone] Ronald Mills MD [address] [place] [address] [address] [place] [address] documented as of this encounter [...] as of this encounter Care Teams Fur Blender Relationship Specialty Start Date End Date Caitlyn Bowie MD [address] [address] PCP - General Internal Medicine 05/06/21 documented as of this encounter
--- OUTSIDE RECORDS SUMMARY | 2024-11-04 17:55 | XMS_ITS | Encounter Summary ---
Author Organization [facility] and [facility] Address [address] [place] [address] Care Team Providers Care Templer Head Name Role Phone Caitlyn Bowie MD Primary Care Provider +1- [phone] Encounter Details Date Type Department Care Team (Late st Contact Info) Description 06/17/2016 Scanned Document [facility] Health Information Management [address] [place] [address] External, Provider Social History Tobacco Use Types [...] [facility] 240 [facility] Building [address] [place], [place] [phone] Ronald Mills MD 240 [facility] A1 [place] [address] documented as of this encounter Visit Diagnoses Not on filedocumented in this encounter Additional Health Concerns Infection Onset Date Last Indicated Resolved Time COVID-19 03/05/2022 03/05/2022 03/15/2022 7:18 PM EDT documented as of this encounter Care Teams Templer Head Relationship Specialty Start Date End Date Caitlyn Bowie MD 3400 [facility] 1 [place] [address] PCP - General Internal Medicine 05/06/21 Henry Kelly MD Pulmonary Department 175 [facility], [address] [place] [address] Physician Pulmonary Disease 09/06/17 06/22/20 documented as of this encounter
--- OUTSIDE RECORDS SUMMARY | 2024-11-04 17:55 | XMS_ITS | Encounter Summary ---
Author Organization [facility] and [facility] Address [address] [place] [address] Care Team Providers Care Director Meetings Name Role Phone Caitlyn Bowie MD Primary Care Provider +1- [phone] Encounter Details Date Type Department Care Team (Late st Contact Info) Description 12/16/2016 Scanned Document [facility] Health Information Management [address] [place] [address] External, Provider Social History Tobacco Use Types [...] Center at [facility] 240 [facility] Building [address] [place], [place] [phone] Ronald Mills MD 240 [facility] Max [address] [place] [address] documented as of this encounter [...] as of this encounter Care Teams Director Meetings Relationship Specialty Start Date End Date Caitlyn Bowie MD 3400 [facility] 1 [place] [address] PCP - General Internal Medicine 05/06/21 Henry Kelly MD Pulmonary Department 175 [facility], [address] [place] [address] Physician Pulmonary Disease 09/06/17 06/22/20 documented as of this encounter
--- OUTSIDE RECORDS SUMMARY | 2024-11-04 17:55 | XMS_ITS | Encounter Summary ---
Author Organization [facility] and [facility] Address [address] [place] [address] Care Team Providers Care Public Health Analyst Name Role Phone Caitlyn Bowie MD Primary Care Provider +1- [phone] Encounter Details Date Type Department Care Team (Late st Contact Info) Description 07/27/2016 Scanned Document Thoracic Oncology Program at [address] [address] Suzy Kong MD [address] [place] [address] Social History Tobacco Use Types Packs/Day [...] PM EDT Telemedicine Cancer Center at [address] [place], [place] [phone] Ronald Mills MD 240 [facility] [address] [place] [address] documented as of this encounter Visit Diagnoses Not on filedocumented in this encounter Additional Health Concerns Infection Onset Date Last Indicated Resolved Time COVID-19 03/05/2022 03/05/2022 03/15/2022 7:18 PM EDT documented as of this encounter Care Teams Public Health Analyst Relationship Specialty Start Date End Date Caitlyn Bowie MD 3400 [facility] Max 1 [place] [address] PCP - General Internal Medicine 05/06/21 Henry Kelly MD Pulmonary Department 175 [facility], [address] [place] [address] Physician Pulmonary Disease 09/06/17 06/22/20 documented as of this encounter
--- OUTSIDE RECORDS SUMMARY | 2024-11-04 17:55 | XMS_ITS | Encounter Summary ---
Author Organization [facility] Address [address] [place] [address] Care Team Providers Care Spindle Tester Name Role Phone Caitlyn Bowie MD Primary Care Provider +1- [phone] Encounter Details Date Type Department Care Team (Late st Contact Info) Description 06/17/2016 Scanned Document [facility] Health Information Management [address] [place] [address] External, Provider Social History Tobacco Use Types [...] [facility] 240 [facility] Building [address] [place], [place] [phone] Ronald Mills MD 240 [facility] [address]1 [place] [address] documented as of this encounter Visit Diagnoses Not on filedocumented in this encounter Additional Health Concerns Infection Onset Date Last Indicated Resolved Time COVID-19 03/05/2022 03/05/2022 03/15/2022 7:18 PM EDT documented as of this encounter Care Teams Spindle Tester Relationship Specialty Start Date End Date Caitlyn Bowie MD 3400 [facility] 1 [place] [address] PCP - General Internal Medicine 05/06/21 Henry Kelly MD Pulmonary Department 175 [facility], [address] [place] [address] Physician Pulmonary Disease 09/06/17 06/22/20 documented as of this encounter
--- OUTSIDE RECORDS SUMMARY | 2024-11-04 17:55 | XMS_ITS | Encounter Summary ---
Author Organization [facility] Address [address] [place] [address] Care Team Providers Care Email Production Consultant Name Role Phone Caitlyn Bowie MD Primary Care Provider +1- [phone] Encounter Details Date Type Department Care Team (Late st Contact Info) Description 07/27/2016 Scanned Document Thoracic Oncology Program at [address] [address] Suzy Kong MD [address] [place] [address] Social History Tobacco Use Types Packs/Day [...] 4:00 PM EDT Telemedicine Cancer Center at [address] [place], [place] [phone] Ronald Mills MD 240 [facility] Max [address] [place] [address] documented as of this encounter Visit Diagnoses Not on filedocumented in this encounter Additional Health Concerns Infection Onset Date Last Indicated Resolved Time COVID-19 03/05/2022 03/05/2022 03/15/2022 7:18 PM EDT documented as of this encounter Care Teams Email Production Consultant Relationship Specialty Start Date End Date Caitlyn Bowie MD 3400 [facility] Max 1 [place] [address] PCP - General Internal Medicine 05/06/21 Henry Kelly MD Pulmonary Department 175 [facility], [address] [place] [address] Physician Pulmonary Disease 09/06/17 06/22/20 documented as of this encounter
--- OUTSIDE RECORDS SUMMARY | 2024-11-04 17:55 | XMS_ITS | Encounter Summary ---
Author Organization [facility] and [facility] Address [address] [place] [address] Care Team Providers Care Time Signal Wirer Name Role Phone Caitlyn Bowie MD Primary Care Provider +1- [phone] Encounter Details Date Type Department Care Team (Late st Contact Info) Description 12/14/2016 Scanned Document [facility] Health Information Management [address] [place] [address] External, Provider Social History Tobacco Use Types [...] [facility] 240 [facility] Building [address] [place], [place] [phone] Ronald Mills MD 240 [facility] [address] [place] [address] documented as of this encounter [...] as of this encounter Care Teams Time Signal Wirer Relationship Specialty Start Date End Date Caitlyn Bowie MD 3400 [facility] 1 [place] [address] PCP - General Internal Medicine 05/06/21 Henry Kelly MD Pulmonary Department 175 [facility], [address] [place] [address] Physician Pulmonary Disease 09/06/17 06/22/20 documented as of this encounter
--- OUTSIDE RECORDS SUMMARY | 2024-11-04 17:55 | XMS_ITS | Encounter Summary ---
Author Organization [facility] and [facility] Address [address] [place] [address] Care Team Providers Care Solar Project Engineer Name Role Phone Caitlyn Bowie MD Primary Care Provider +1- [phone] Encounter Details Date Type Department Care Team (Late st Contact Info) Description 10/10/2016 Scanned Document [facility] Health Information Management [address] [place] [address] External, Provider Social History Tobacco Use Types [...] [facility] 240 [facility] Building [address] [place], [place] [phone] Ronald Mills MD 240 [facility] A1 [place] [address] documented as of this encounter Visit Diagnoses Not on filedocumented in this encounter Additional Health Concerns Infection Onset Date Last Indicated Resolved Time COVID-19 03/05/2022 03/05/2022 03/15/2022 7:18 PM EDT documented as of this encounter Care Teams Solar Project Engineer Relationship Specialty Start Date End Date Caitlyn Bowie MD 3400 [facility] 1 [place] [address] PCP - General Internal Medicine 05/06/21 Henry Kelly MD Pulmonary Department 175 [facility], [address] [place] [address] Physician Pulmonary Disease 09/06/17 06/22/20 documented as of this encounter
== END 2024-11-04 15:59 | disposition home or self-care (01) ==
LOC: HO.HPS 15:01
PROVIDERS: PCP Internal Medicine; Visit Provider Hospitalist
DX: J41.0 Simple chronic bronchitis (principal); J96.12 Chronic respiratory failure with hypercapnia; G47.31 Primary central sleep apnea; I27.20 Pulmonary hypertension, unspecified; R91.8 Other nonspecific abnormal finding of lung field; J96.11 Chronic respiratory failure with hypoxia; G47.33 Obstructive sleep apnea (adult) (pediatric); J70.1 Chronic and other pulmonary manifestations due to radiation; I50.32 Chronic diastolic (congestive) heart failure; C34.12 Malignant neoplasm of upper lobe, left bronchus or lung; J90 Pleural effusion, not elsewhere classified
CPT/HCPCS: 99215; G2211

== ENCOUNTER → 2024-11-04 15:00 | Outpatient (BNVA) | payer MEDICARE, SELFPAY | PROVIDERS: PCP Internal Medicine; Visit Provider Hospitalist | DX: J41.0 Simple chronic bronchitis (principal); J96.12 Chronic respiratory failure with hypercapnia; J96.11 Chronic respiratory failure with hypoxia; J90 Pleural effusion, not elsewhere classified; G47.33 Obstructive sleep apnea (adult) (pediatric); I27.20 Pulmonary hypertension, unspecified; G47.31 Primary central sleep apnea; R91.8 Other nonspecific abnormal finding of lung field; J70.1 Chronic and other pulmonary manifestations due to radiation; I50.32 Chronic diastolic (congestive) heart failure; Z86.711 Personal history of pulmonary embolism; Z90.2 Acquired absence of lung [part of]; Z85.118 Personal history of other malignant neoplasm of bronchus and lung; Z99.81 Dependence on supplemental oxygen; Z99.89 Dependence on other enabling machines and devices | CPT/HCPCS: 99212 ==

== ENCOUNTER 2024-11-11 13:56 | Outpatient (AMB) | payer MEDICARE, SELFPAY ==
--- NOTE | 2024-11-11 14:07 | A.OFFVIS_ITS ---
Vital Signs 11/11/24 14:10 Height 5 ft 3 in Weight 129 lb 3.054 oz BMI 22.9 BP 100/52 L Blood Pressure Location Lt brachial Position Sitting Pulse 85 Pulse Source Pulse Oximeter Intake Visit Reasons: f/up-echo Intake Note: f/up- echo Erp Manager Required: No Accompanied by: Self / Same As Patient Allergies morphine Allergy (Severe, Verified 11/04/24 15:20) Itching avocado [AVOCADO] Allergy (Mild, Verified 11/04/24 15:20) ITCHY THROAT, RASH azithromycin [AZITHROMYCIN] Allergy (Mild, Verified 11/04/24 15:20) ITCHY THROAT, RASH barium iodide [BARIUM IODIDE] Allergy (Mild, Verified 11/04/24 15:20) ITCHY THROAT, RASH barium sulfate Allergy (Mild, Verified 11/04/24 15:20) Itch bee pollen [BEE STINGS] Allergy (Mild, Verified 11/04/24 15:20) ITCHY THROAT, RASH ciprofloxacin [From CIPRO] Allergy (Mild, Verified 11/04/24 15:20) ITCHY THROAT, RASH clarithromycin [From BIAXIN] Allergy (Mild, Verified 11/04/24 15:20) ITCHY THROAT, RASH diatrizoate meglumine [From GASTROGRAFIN] Allergy (Mild, Verified 11/04/24 15:20) ITCHY THROAT, RASH diatrizoate sodium [From GASTROGRAFIN] Allergy (Mild, Verified 11/04/24 15:20) ITCHY THROAT, RASH diclofenac [From VOLTAREN] Allergy (Mild, Verified 11/04/24 15:20) ITCHY THROAT, RASH erythromycin base [ERYTHROMYCIN BASE] Allergy (Mild, Verified 11/04/24 15:20) ITCHY THROAT, RASH gentamicin [GENTAMICIN] Allergy (Mild, Verified 11/04/24 15:20) ITCHY THROAT, RASH Iodinated Contrast Media [IVP DYE] Allergy (Mild, Verified 11/04/24 15:20) ITCHY THROAT, RASH levofloxacin [From LEVAQUIN] Allergy (Mild, Verified 11/04/24 15:20) ITCHY THROAT, RASH metronidazole [From FLAGYL] Allergy (Mild, Verified 11/04/24 15:20) ITCHY THROAT, RASH moxifloxacin [From AVELOX] Allergy (Mild, Verified 11/04/24 15:20) ITCHY THROAT, RASH Penicillins [PENICILLINS] Allergy (Mild, Verified 11/04/24 15:20) ITCHY THROAT, RASH shrimp [SHRIMP] Allergy (Mild, Verified 11/04/24 15:20) ITCHY THROAT, RASH Sulfa (Sulfonamide Antibiotics) [SULFA (SULFONAMIDE ANTIBIOTICS)] Allergy (Mild, Verified 11/04/24 15:20) ITCHY THROAT, RASH vancomycin [VANCOMYCIN] Allergy (Mild, Verified 11/04/24 15:20) ITCHY THROAT, RASH clindamycin Adverse Reaction (Intermediate, Verified 11/04/24 15:20) Unknown Medication List - Last Reconciled 11/11/24 by Luis Eduardo Cadet MD Advair HFA 230-21 mcg/actuation (fluticasone propion-salmeterol) 2 puffs inhalation BID 90 days NS albuterol sulfate 90 mcg/actuation 2 inhalations inhalation Q6H PRN 90 days cefpodoxime 200 mg PO BID 14 days CPAP (CPAP Machine/Device) As directed diazepam 5 mg PO BID PRN docusate sodium 100 mg PO DAILY epinephrine 0.3 mg IM USEASDIRECTD PRN fluticasone propionate 50 mcg/actuation 2 sprays intranasal DAILY 90 days furosemide 80 mg (2 x 40 mg) PO BID guaifenesin 400 mg PO TID hydroxychloroquine 200 mg PO DAILY 30 days levocetirizine 5 mg PO DAILY 90 days levothyroxine (Synthroid) 50 mcg PO SUSA@0600 magnesium hydroxide (Milk of Magnesia) 30 mL PO NEEDED PRN meclizine 25 mg PO Q8H PRN 10 days metoprolol succinate ER (Toprol XL) 50 mg PO BID montelukast 10 mg PO DAILY nebulizers As directed Oxygen Home Use As directed potassium chloride ER 40 mEq (2 x 20 mEq) PO DAILY prednisone 2.5 mg PO DAILY 90 days rosuvastatin 10 mg PO ONCE simethicone (Gas Relief (simethicone)) 80 mg PO QIDWMHS trazodone 100 mg (2 x 50 mg) PO BEDTIME warfarin (Jantoven) 1.5 mg PO DAILY@1800 zolpidem (Ambien) 5 mg PO BEDTIME PRN 30 days HPI Comments Details: 79-year-old female complex medical issues presenting follow-up. She recently was diagnosed with severe mitral valve regurgitation was felt not to be a good surgical candidate and underwent MitraClip. She had improvement in symptoms afterwards. She has advanced lung disease due to previous lung resection as well as radiation to the lungs. She also had pulmonary embolism in the past. She has pulmonary hypertension. She is presenting now because she was becoming more short of breath and had lower extremity edema. On her own she crease her furosemide to 40 mg over the last week or so. She said her breathing did not change with that strategy. It appears early November she was in the emergency department with shortness of breath and was diagnosed with left lower lobe pneumonia. She had some sharp left-sided chest pains which were pleuritic in nature likely due to underlying pneumonia. She was given antibiotics which she has completed. She is saying that her oxygen saturations the low when she is laying down. She does not use oxygen frequently. Specifically outside her home she does not use oxygen. She has tachycardia when she is ambulating which she has noticed but does not significantly get any palpitations. She continues to get short of breath with activities. She saw a pulmonary hypertension specialist and by her description she was told that her pulmonary hypertension was mostly due to mitral regurgitation. She is following with pulmonology at [facility]. 12/29/22: Was brought in for urgent follow-up. She called and was complaining of palpitations and fast heart rates as high as 120 beats per minute and was also complaining of shortness of breath. It appears she was referred for echocardiography by pulmonology and this showed that her right ventricle is whye-gf-[id number] dilated, right atrium was severely dilated with small pericardial effusion as before but small to moderate pleural effusion was also noted. Previous iatrogenic ASD from transseptal puncture was noted as well mitral stenosis due to mitral clip with mean gradient of 8-9 mm Hg. Previously this was 7 mm Hg. The patient was previously advised to use oxygen when she is ambulating. Apparently she was out with her friends and while walking she was not using oxygen and started feeling shortness of breath and checked her pulse and it was 120 beats per minute. She is saying when she is using oxygen she does not get similar symptoms and has not had any tachycardia while using oxygen. She has also gained few lb over the last few days. She was sent for chest x-ray which is showing left basal pleural effusion as seen on the echocardiography also. She is taking Lasix 40 mg once a day. She is on metoprolol succinate 25 mg twice a day. 01/11/23: She returns for follow-up. She had Holter monitor on her and the day she came to return it she had significant palpitations and shortness of breath while walking to the Cardiology Department. She said she was not rushing and was walking at a slow pace. She said these symptoms improved afterwards and she did not have any for the palpitations walking back to her car. She was using oxygen. She is wearing oxygen 30/01 but is saying that she feels lousy and has not felt any difference in her dyspnea or palpitations. She has been using 40 mg twice a day of Lasix. Her blood pressure control is good. Previously we did not increase her Toprol XL despite seeing some degree of mitral stenosis on her echocardiogram which is iatrogenic due to MitraClip. She has been more sedentary and is quite frail and deconditioned. She is tearful that she is unable to do any of the activities she was able to do before. 02/13/23: She returns for follow-up. She was previously on 40 mg p.o. b.i.d. Lasix. She had called our office for lower extremity edema and Lasix dose was increased to 80 mg twice a day. Subsequent to that she called or office that she is dehydrated and was advised to take 80 mg in the morning and 40 in the afternoon. She had blood workup which showed hypokalemia and she was started on potassium supplements. She continues to get fatigue and SOB. She is using oxygen when sleeping and with ambulation. Continues to get tachycardia with ambulation. 04/26/2023: She returns for follow-up. She called us yesterday because she gained 3 lb over 3 days. She was taking 40 mg p.o. b.i.d. Lasix. She was advised to take an extra dose of Lasix yesterday and increase the Lasix to 80 mg in the morning today. She said she checked her weight today and was back at 128 lb which was her baseline. She is saying she has been short of breath and fatigue. Also she had upper back pain which moved to her chest early April and she went to [facility] where she had a chest CTA performed which did not show any evidence of dissection or pulmonary embolism. Pulmonary arteries were noticed to be dilated consistent with her known history of pulmonary hypertension. 08/14/2023: She returns for follow-up. She had an episode of diverticulitis which was treated in the hospital. She said she went home and was getting some shortness of breath and wheezing and was advised to go back to the hospital and was treated for pneumonia also. She continues to have symptoms like before including chest tightness, fatigue and inability to exercise. She is on oxygen mostly at times. She complains of some edema in the lower extremity but nothing significant is noted on examination. 09/04/2023: She returns for urgent follow-up. She is complaining of shortness of breath and palpitations. She said she was tachycardic and checked her heart rate and was 100 beats per minute. She has been using oxygen most of the time. Sometimes she takes it off and if the oxygen level is dropping she wears oxygen back. During activities she has been using oxygen. Continues to get off and on chest discomfort. She had an echocardiogram done at [facility] with transmitral gradient was 7 mm Hg at a heart rate of 76 beats per minute. 10/17/23: She is here for follow-up after recent ER visit. Apparently was getting lower extremity edema and went to the emergency department where she was told that she may have congestive heart failure. No significant changes in medications were made. Her BNP was at the same level that it has been previously. She called our office and was concerned and we decided to bring her for office visit. She is saying that she was short of breath and had lower extremity edema and went to the emergency department and apparently after testing no changes in medications were made. She clearly has some peripheral edema. She also is complaining of some shortness of breath with activities. 11/20/23: She is here for follow-up. She had repeat echocardiography performed which is showing normal LV function 60-65 % without any wall motion abnormalities with elevated filling pressures, normal right ventricular systolic function with mild RV dilation, mitral clip with 8 mm pressure gradient across the mitral valve at heart rate of 88 beats per minute. [id number] pulmonary hypertension. She is complaining of fatigue and gets tired very easily. She has not been exercising and has slowed down significantly. With Lasix her volume status appears to be better but she is still complaining of off and on lower extremity edema. She is concerned about her kidneys. I have reassured her that she looks euvolemic. Also discussed with her the ECHO findings which are quite reassuring currently. 03/06/2024: She is here for follow-up. She had multiple issues since she last saw us in November. She had pneumonia followed by diverticulitis as well as a hematoma on the right lagos which was drained by surgeon. She was getting more short of breath and apparently had a chest x-ray performed which showed pleural effusions. Her Lasix dose was increased to 80 mg twice a day. She started the higher dose today. She was previously taking 80 mg and 40 mg in the morning and afternoon. Denying any other complaints. 03/25/2024: She returns for follow-up. She was recently seen for congestive heart failure episode. Her Lasix dose was increased to 80 mg twice a day. She had subsequent blood workup which showed stable kidney function. BNP improved. Clinically she has improved somewhat but continues to have some shortness of br eath. She is using oxygen more frequently and appears to be calmer than before and has no obvious shortness of breath. She has been coughing and will be discussing this more with pulmonology. 06/24/2024: She is here for follow-up. She is denying any chest pains. She is saying her breathing is stable. She is using supplemental oxygen. She is using BiPAP at night for few hours but apparently was noticed to be snoring while wearing BiPAP and is in the process of getting repeat sleep study. No significant complaints on follow-up. 10/04/2024: She is here for follow-up. She has noticed some swelling at the left ankle. She is saying her breathing is stable but whenever she tries to walk she gets out of breath and gets chest tightness. She noticed her oxygen level has dropped when she exercises. He has a consistent thing for her. She has known pulmonary hypertension which was a mixed due to heart disease as well as pulmonary disease. Taking medications regularly. We discussed about spironolactone in the past but she did not agree to it due to side effect profile. I have advised her to reconsider that because it may help her with the extra fluid and also may help improve her potassium which has been low and she is taking supplements. 11/11/2024: She is here for follow-up. Repeat echocardiography has shown mild pulmonary hypertension. She has been more compliant with oxygen. She has noticed that when she does not use oxygen she feels short of breath and tachycardia. She had an episode of diverticulitis and was on antibiotics and decrease the Lasix to 40 mg twice a day for few days but is back at 80 mg twice a day. Overall stable. [facility] Medical History Chronic hypercapnic respiratory failure KANDY treated with BiPAP COPD (chronic obstructive pulmonary disease) Open wound Warfarin anticoagulation Complex sleep apnea syndrome Leg pain Anemia Tachycardia DVT (deep venous thrombosis) Compression fracture of body of thoracic vertebra ASD (atrial septal defect) Pleuritic chest pain History of COVID-19 Chronic anticoagulation Hypothyroidism GERD (gastroesophageal reflux disease) Hyperlipidemia Hypertension Factor 5 Leiden mutation, heterozygous History of non-ST elevation myocardial infarction (NSTEMI) Hypoxia Anxiety PTSD (post-traumatic stress disorder) Hemoptysis Dyspnea Tracheobronchitis CLARA positive Diverticulitis Allergic bronchitis (HFpEF) heart failure with preserved ejection fraction Subarachnoid bleed Insomnia Anti-phospholipid antibody syndrome Hypogammaglobulinemia Chronic respiratory failure Arterial insufficiency of lower extremity Complex regional pain syndrome i of right lower limb Post herpetic neuralgia Pulmonary hypertension Pericardial effusion Pulmonary emboli Pleural effusion Radiation fibrosis of lung Pneumonitis Pulmonary nodules Lung cancer Surgical History History of colonoscopy History of lung surgery History of tonsillectomy History of hysterectomy S/P mitral valve clip implantation History of cardiac cath Family History Sister No problems noted. Mother Cardiovascular disease Daughter Tachycardia Other KANDY (obstructive sleep apnea) Social History Household Members: Other Housing: Longterm Do you presently have visiting nurse or other home services: Yes (at home had HVAC R INSTRUCTOR that came to visit her) Unable to assess alcohol history related to: Unknown Alcohol intake: former Comment: stand by assist with ambulation Patient Tobacco Use Status: Never used Tobacco Second Hand Smoke Exposure: No Advance Directives Date on File: 06/15/22 service: No Current occupational status: retired Review of Systems Const Denies chills, Denies fatigue, Denies fever(s), Denies frequent falls, Denies weakness, Denies weight gain and Denies weight loss ENT Denies dizziness Card Denies chest pain, Denies leg edema, Denies lightheadedness, Denies palpitations, Denies dyspnea and Denies dyspnea on exertion Resp Denies cough, Denies dyspnea and Denies dyspnea on exertion GI Denies hematochezia Musc Denies abnormal gait, Denies muscle weakness, Denies numbness, Denies radiating pain into limb and Denies tingling Neuro Denies abnormal gait, Denies dizziness, Denies frequent falls, Denies numbness, Denies tingling and Denies weakness Endo Denies fatigue and Denies palpitations Physical Exam Vital Signs: Last Vital Signs Pulse 85 11/11/24 14:10 BP 100/52 L 11/11/24 14:10 BMI result Body Mass Index 22.9 GENERAL APPEARANCE: In no distress. NECK/THYROID: no carotid bruit, no JVD. SKIN: no suspicious lesions, warm and dry. HEART: no murmurs, regular rate and rhythm, S1, S2 normal. LUNGS: clear to auscultation bilaterally. ABDOMEN: normal, bowel sounds present, soft, nontender, nondistended. EXTREMITIES: no clubbing, cyanosis. Mild edema left ankle. PERIPHERAL PULSES: equal. NEUROLOGIC: nonfocal, alert and oriented. Assessment & Plan Assessment & Plan (1) (HFpEF) heart failure with preserved ejection fraction: Code(s): I50.30 - Unspecified diastolic (congestive) heart failure Category: Medical Qualifiers: Heart failure chronicity: chronic Qualified Code(s): I50.32 - Chronic diastolic (congestive) heart failure (2) Pulmonary hypertension: Comment: severe based on RHC, moderate based on recent echo Code(s): I27.20 - Pulmonary hypertension, unspecified Category: Medical Plan 79-year-old female with complex medical issues who is here for follow-up. She has background of mitral valve regurgitation status post mitral clip we mean gradient across mitral valve of 7 mm Hg by echocardiography. Recent echocardiography has shown mild pulmonary hypertension and I have encouraged her to continue using oxygen regularly. Diastolic heart failure-she is clinically stable and euvolemic at this stage. Continue Lasix at the same dose. We discussed about spironolactone but she was worried about side effects and did not agree to that and continues to take potassium supplements at this point. Overall stable and we will continue same medications for now. Thank you for allowing me to participate in the care of your patient. Please feel free to contact me if you have any questions. Coding Level of Care Code Est Pt Level 4 (85048) Diagnoses Chronic heart failure with preserved ejection fraction I50.32 Heart failure chronicity: chronic Pulmonary hypertension I27.20
[2024-11-11 14:10] VITALS: BP 100/52; PULSE 85; BMI 22.9
--- OUTSIDE RECORDS SUMMARY | 2024-11-11 15:30 | XMS_ITS | Encounter Summary ---
Author Organization [facility] Address [address] [place] [address] Care Team Providers Care [employer] Truck Driver Name Role Phone Caitlyn Bowie MD Primary Care Provider +1- [phone] Encounter Details Date Type Department Care Team (Late st Contact Info) Description 09/07/2020 Scanned Document Cardiovascular Medicine at [address] [place] [address] [id number] Norma Renee MD [address] [place] [phone] Social History Tobacco Use Types Packs/Day Years [...] PM EDT Tele[facility]icine [facility] at [address] [place] [address] Ronald Mills MD [address] [place] [address] [address] [place] [address] documented as of this encounter Visit Diagnoses Not on filedocumented in this encounter Additional Health Concerns Infection Onset Date Last Indicated Resolved Time COVID-19 03/05/2022 03/05/2022 03/15/2022 7:18 PM EDT Assessment Noted Time PHQ-9 Depression Total Score: 2 11/07/19 19 2:06 PM EDT documented as of this encounter Care Teams [employer] Truck Driver Relationship Specialty Start Date End Date Caitlyn Bowie MD [address] [address] PCP - General Internal Medicine 05/06/21 documented as of this encounter
--- OUTSIDE RECORDS SUMMARY | 2024-11-11 15:30 | XMS_ITS | Encounter Summary ---
Author Organization [facility] Address [address] [place] [id number] Care Team Providers Care Protection Consultant Name Role Phone Caitlyn Bowie MD Primary Care Provider +1- [phone] Encounter Details Date Type Department Care Team (Late Contact Info) Description 09/16/2020 Scanned Document [facility] Health Information Management [address] [place] [phone] External, Provider Social History Tobacco Use Types [...] [facility] [address] [facility] [address] [place], [place] [id number] Ronald Mills MD [address] [place] [address] [address] [place] [address] documented as of this encounter [...] as of this encounter Care Teams Protection Consultant Relationship Specialty Start Date End Date Caitlyn Bowie MD [address] [phone] PCP - General Internal Medicine 05/06/21 documented as of this encounter
--- OUTSIDE RECORDS SUMMARY | 2024-11-11 15:30 | XMS_ITS | Encounter Summary ---
Author Organization [facility] Address [address] [place] [address] Care Team Providers Care Costume Mistress Name Role Phone Caitlyn Bowie MD Primary Care Provider +1- [phone] Encounter Details Date Type Department Care Team (Late st Contact Info) Description 05/14/2020 Documentation Hematology Program at [address] [id number] Taya Nuno RN Social History Tobacco Use [...] 4:00 PM EDT Telemedicine Cancer Center at [address] [place] [address] Ronald Mills MD [address] [place] [phone] documented as of this encounter Visit Diagnoses Not on filedocumented in this encounter Additional Health Concerns Infection Onset Date Last Indicated Resolved Time COVID-19 03/05/2022 03/05/2022 03/15/2022 7:18 PM EDT Assessment Noted Time PHQ-9 Depression Total Score: 2 11/07/19 19 2:06 PM EDT documented as of this encounter Care Teams Costume Mistress Relationship Specialty Start Date End Date Caitlyn Bowie MD [address] [facility] [address] [place] [address] PCP - General Internal Medicine 05/06/21 Henry Kelly MD Pulmonary Department [address] [facility] [place] [address] Physician Pulmonary Disease 09/06/17 06/22/20 documented as of this encounter
--- OUTSIDE RECORDS SUMMARY | 2024-11-11 15:30 | XMS_ITS | Encounter Summary ---
Author Organization [facility] Address [address] [place] [id number] Care Team Providers Care Warehouse Freight Handler Name Role Phone Caitlyn Bowie MD Primary Care Provider +1- [phone] Encounter Details Date Type Department Care Team (Late Contact Info) Description 09/09/2020 Scanned Document [facility] Health Information Management [address] [place] [id number] External, Provider Social History Tobacco Use Types [...] Center at [facility] [address] [facility] [address] [place], [place] [id number] Ronald Mills MD [address] [place] [address] [address] [place] [address] documented as of this encounter [...] documented as of this encounter Care Teams Warehouse Freight Handler Relationship Specialty Start Date End Date Caitlyn Bowie MD [address] [phone] PCP - General Internal Medicine 05/06/21 documented as of this encounter
--- OUTSIDE RECORDS SUMMARY | 2024-11-11 15:30 | XMS_ITS | Encounter Summary ---
Author Organization [facility] and [facility] Address [address] [place] [address] Care Team Providers Care Machine Tailer Name Role Phone Caitlyn Bowie MD Primary Care Provider +1- [phone] Encounter Details Date Type Department Care Team (Late st Contact Info) Description 12/16/2016 Scanned Document [facility] Health Information Management [address] [place] [address] External, Provider Social History Tobacco Use Types [...] [facility] 240 [facility] Building [address] [place], [place] [id number] Ronald Mills MD 240 [facility] Max [address] [place] [address] documented as of this encounter [...] as of this encounter Care Teams Machine Tailer Relationship Specialty Start Date End Date Caitlyn Bowie MD 3400 [facility] 1 [place] [address] PCP - General Internal Medicine 05/06/21 Henry Kelly MD Pulmonary Department 175 [facility], [address] [place] [address] Physician Pulmonary Disease 09/06/17 06/22/20 documented as of this encounter
--- OUTSIDE RECORDS SUMMARY | 2024-11-11 15:30 | XMS_ITS | Encounter Summary ---
Author Organization [facility] and [facility] Address [address] [place] [address] Care Team Providers Care Private Advisor Name Role Phone Caitlyn Bowie MD Primary Care Provider +1- [phone] Encounter Details Date Type Department Care Team (Late st Contact Info) Description 09/17/2020 Scanned Document [facility] Health Information Management [address] [place] [address] External, Provider Social History Tobacco Use Types [...] – [facility] 240 [facility] Building [address] [place], [place] [phone] Ronald Mills MD [address] [place] [address] [address] [place] [address] documented as of this encounter [...] End Date Caitlyn Bowie MD [address] [address] PCP - General Internal Medicine 05/06/21 documented as of this encounter
--- OUTSIDE RECORDS SUMMARY | 2024-11-11 15:30 | XMS_ITS | Encounter Summary ---
Author Organization [facility] Address 20 [place] [address] Care Team Providers Care Driller Operator Name Role Phone Caitlyn Bowie MD Primary Care Provider +1- [phone] Encounter Details Date Type Department Care Team (Late st Contact Info) Description 09/15/2020 Scanned Document Cancer [facility] at [address] [address] External, Provider Social History Tobacco Use Types [...] [facility] at [facility] 240 [facility] Building [address] [place], [place] [address] Ronald Mills MD [address] [place] [address] [address] [place] [address] documented as of this encounter [...] Caitlyn Bowie MD [address] [address] PCP - General Internal Medicine 05/06/21 documented as of this encounter
--- OUTSIDE RECORDS SUMMARY | 2024-11-11 15:30 | XMS_ITS | Encounter Summary ---
Author Organization [facility] and [facility] Address [address] [place] [address] Care Team Providers Care Combination Operator Name Role Phone Caitlyn Bowie MD Primary Care Provider +1- [phone] Encounter Details Date Type Department Care Team (Late st Contact Info) Description 07/08/2020 Scanned Document [facility] Health Information Management [address] [place] [address] External, Provider Social History Tobacco Use Types [...] Telemedicine [facility] 240 [facility] Building [address] [place], [place] [address] Ronald Mills MD [address] [place] [address] [address] [place] [address] documented as of this encounter [...] as of this encounter Care Teams Combination Operator Relationship Specialty Start Date End Date Caitlyn Bowie MD [address] [address] PCP - General Internal Medicine 05/06/21 documented as of this encounter
--- OUTSIDE RECORDS SUMMARY | 2024-11-11 15:30 | XMS_ITS | Encounter Summary ---
Author Organization [facility] and [facility] Address [address] [place] [address] Care Team Providers Care Commercial Teller Name Role Phone Caitlyn Bowie MD Primary Care Provider +1- [phone] Encounter Details Date Type Department Care Team (Late st Contact Info) Description 12/16/2016 Scanned Document [facility] Health Information Management [address] [place] [address] External, Provider Social History Tobacco Use Types [...] at [facility] 240 [facility] Building [address] [place], [place] [id number] Ronald Mills MD 240 [facility] Max [address] [place] [address] documented as of this encounter [...] as of this encounter Care Teams Commercial Teller Relationship Specialty Start Date End Date Caitlyn Bowie MD 3400 [facility] 1 [place] [address] PCP - General Internal Medicine 05/06/21 Henry Kelly MD Pulmonary Department 175 [facility], [address] [place] [address] Physician Pulmonary Disease 09/06/17 06/22/20 documented as of this encounter
--- OUTSIDE RECORDS SUMMARY | 2024-11-11 15:30 | XMS_ITS | Encounter Summary ---
Author Organization [facility] and [facility] Address [address] [place] [address] Care Team Providers Care Manager Contract Name Role Phone Caitlyn Bowie MD Primary Care Provider +1- [phone] Encounter Details Date Type Department Care Team (Late st Contact Info) Description 09/15/2020 Scanned Document INTERFACE DEFAULT [address] [place] [address] System, Provider Not In Social History Tobacco [...] [facility] 240 [facility] Building [address] [place] [address] Ronald Mills MD [address] [place] [address] [address]1 [place] [address] documented as of this encounter Visit Diagnoses Not on filedocumented in this encounter Additional Health Concerns Infection Onset Date Last Indicated Resolved Time COVID-19 03/05/2022 03/05/2022 03/15/2022 7:18 PM EDT Assessment Noted Time PHQ-9 Depression Total Score: 2 11/07/19 19 2:06 PM EDT documented as of this encounter Care Teams Manager Contract Relationship Specialty Start Date End Date Caitlyn Bowie MD [address] [address] PCP - General Internal Medicine 05/06/21 documented as of this encounter
--- OUTSIDE RECORDS SUMMARY | 2024-11-11 15:30 | XMS_ITS | Encounter Summary ---
Author Organization [facility] Address 20 [place] [address] Care Team Providers Care Bobbin Sorter Name Role Phone Caitlyn Bowie MD Primary Care Provider +1- [phone] Encounter Details Date Type Department Care Team (Late st Contact Info) Description 05/19/2020 Scanned Document Cancer Center at [address] [address] External, Provider Social History Tobacco Use Types [...] at [facility] 240 [facility] Building [address] [place], [place] [address] Ronald Mills MD [address] [place] [address] [address]1 [place] [address] documented as of this encounter [...] documented as of this encounter Care Teams Bobbin Sorter Relationship Specialty Start Date End Date Caitlyn Bowie MD 3400 [facility] 1 [place] [address] PCP - General Internal Medicine 05/06/21 Henry Kelly MD Pulmonary Department 175 [facility], [address] [place] [address] Physician Pulmonary Disease 09/06/17 06/22/20 documented as of this encounter
--- OUTSIDE RECORDS SUMMARY | 2024-11-11 15:30 | XMS_ITS | Encounter Summary ---
Author Organization [facility] and [facility] Address 20 [place] [address] Care Team Providers Care Menagerie Caretaker Name Role Phone Caitlyn Bowie MD Primary Care Provider +1- [phone] Reason for Visit * Reason Onset Date Comments Appointment 10/31/2024 Encounter Details Date Type Department Care Team (Late st Contact Info) Description 10/31/2024 Telephone [facility] [address] [address] Ronald Mills MD [address] [place] [address] Appointment Social History Tobacco Use Types [...] Miscellaneous Notes * Telephone Encounter - Raquel oRjas - 10/31/2024 2:23 PM EDT toll test desk worker called in and stated wanted patient to schedule an appointment on 04/25 at 4 pm in person in [place]. Patient said that appointment is too late in day to come in person, would a telemed be ok? documented in this encounter Plan of Treatment Upcoming Encounters Date Type Department Care Team ([facility] st Contact Info) Description 04/25/2025 4:00 PM EDT Telemedicine [facility] 240 [facility] Building [address] [place] [address] Ronald Mills MD 240 [facility] Max [address] [place] [address] documented as of this encounter Visit Diagnoses Not on filedocumented in this encounter Additional Health Concerns Assessment Noted Time PHQ-9 Depression Total Score: 2 11/07/19 19 2:06 PM EDT documented as of this encounter Care Teams Menagerie Caretaker Relationship Specialty Start Date End Date Caitlyn Bowie MD [address] [address] PCP - General Internal Medicine 05/06/21 documented as of this encounter
--- OUTSIDE RECORDS SUMMARY | 2024-11-11 15:30 | XMS_ITS | Encounter Summary ---
Author Organization [facility] Address [address] [place] [address] Care Team Providers Care Community Relations Liaison Name Role Phone Caitlyn Bowie MD Primary Care Provider +1- [phone] Encounter Details Date Type Department Care Team (Late st Contact Info) Description 12/16/2016 Scanned Document [facility] Health Information Management [address] [place] [address] External, Provider Social History Tobacco Use Types [...] – [facility] 240 [facility] Building [address] [place], [place] [address] Ronald Mills MD 240 [facility] [address] [place] [address] documented as of this encounter [...] as of this encounter Care Teams Community Relations Liaison Relationship Specialty Start Date End Date Caitlyn Bowie MD 3400 [facility] 1 [place] [address] PCP - General Internal Medicine 05/06/21 Henry Kelly MD Pulmonary Department 175 [facility], [address] [place] [address] Physician Pulmonary Disease 09/06/17 06/22/20 documented as of this encounter
--- OUTSIDE RECORDS SUMMARY | 2024-11-11 15:30 | XMS_ITS | Encounter Summary ---
Author Organization [facility] and [facility] Address [address] [place] [address] Care Team Providers Care Car And Yard Supervisor Name Role Phone Caitlyn Bowie MD Primary Care Provider +1- [phone] Encounter Details Date Type Department Care Team (Late Contact Info) Description 09/15/2020 Scanned Document [facility] Health Information Management [address] [place] [address] External, Provider Social History Tobacco Use Types [...] [facility] 240 [facility] Building [address] [place], [place] [address] Ronald Mills MD [address] [place] [address] [address]1 [place] [address] documented as of this encounter [...] as of this encounter Care Teams Car And Yard Supervisor Relationship Specialty Start Date End Date Caitlyn Bowie MD [address] [address] PCP - General Internal Medicine 05/06/21 documented as of this encounter
--- OUTSIDE RECORDS SUMMARY | 2024-11-11 15:30 | XMS_ITS | Encounter Summary ---
Author Organization [facility] and [facility] Address [address] [place] [address] Care Team Providers Care Analytics Leader Name Role Phone Caitlyn Bowie MD Primary Care Provider +1- [phone] Encounter Details Date Type Department Care Team (Late st Contact Info) Description 02/20/2017 Scanned Document [facility] Health Information Management [address] [place] [address] External, Provider Social History Tobacco Use Types [...] [facility] 240 [facility] Building [address] [place], [place] [address] Ronald Mills MD 240 [facility] [address] [place] [address] documented as of this encounter [...] documented as of this encounter Care Teams Analytics Leader Relationship Specialty Start Date End Date Caitlyn Bowie MD 3400 [facility] 1 [place] [address] PCP - General Internal Medicine 05/06/21 Henry Kelly MD Pulmonary Department 175 [facility], [address] [place] [address] Physician Pulmonary Disease 09/06/17 06/22/20 documented as of this encounter
--- OUTSIDE RECORDS SUMMARY | 2024-11-11 15:30 | XMS_ITS | Encounter Summary ---
Author Organization [facility] Address [address] [place] [address] Care Team Providers Care Roll Filler Name Role Phone Caitlyn Bowie MD Primary Care Provider +1- [phone] Encounter Details Date Type Department Care Team (Late st Contact Info) Description 12/16/2016 Scanned Document [facility] Health Information Management [address] [place] [address] External, Provider Social History Tobacco Use Types [...] [facility] 240 [facility] Building [address] [place], [place] [phone] Ronadl Mills MD 240 [facility] [address] [place] [address] documented as of this encounter [...] as of this encounter Care Teams Roll Filler Relationship Specialty Start Date End Date Caitlyn Bowie MD 3400 [facility] 1 [place] [address] PCP - General Internal Medicine 05/06/21 eHnry Kelly MD Pulmonary Department 175 [facility], [address] [place] [address] Physician Pulmonary Disease 09/06/17 06/22/20 documented as of this encounter
--- OUTSIDE RECORDS SUMMARY | 2024-11-11 15:30 | XMS_ITS | Encounter Summary ---
Author Organization [facility] and [facility] Address [address] [place] [address] Care Team Providers Care Director Of Public Relations Name Role Phone Caitlyn Bowie MD Primary Care Provider +1- [phone] Encounter Details Date Type Department Care Team (Late st Contact Info) Description 12/16/2016 Scanned Document [facility] Health Information Management [address] [place] [address] External, Provider Social History Tobacco Use Types [...] Telemedicine [facility] 240 [facility] Building [address] [place], [place] [phone] Ronald Mills MD 240 [facility] [address]1 [place] [address] documented as of this encounter [...] of this encounter Care Teams Director Of Public Relations Relationship Specialty Start Date End Date Caitlyn Bowie MD [facility] 1 [place] [address] PCP - General Internal Medicine 05/06/21 Henry Kelly MD Pulmonary Department 175 [facility], [address] [place] [address] Physician Pulmonary Disease 09/06/17 06/22/20 documented as of this encounter
--- OUTSIDE RECORDS SUMMARY | 2024-11-11 15:30 | XMS_ITS | Encounter Summary ---
Author Organization [facility] and [facility] Address [address] [place] [address] Care Team Providers Care Security Patrol Driver Name Role Phone Caitlyn Bowie MD Primary Care Provider +1- [phone] Encounter Details Date Type Department Care Team (Late st Contact Info) Description 09/16/2020 Scanned Document [facility] Health Information Management [address] [place] [address] External, Provider Social History Tobacco Use Types [...] at [facility] 240 [facility] Building [address] [place], [place] [address] Ronald Mills MD [address] [place] [address] [address] [place] [address] documented as of this encounter Procedures Procedure [...] as of this encounter Care Teams Security Patrol Driver Relationship Specialty Start Date End Date Caitlyn Bowie MD [address] [address] PCP - General Internal Medicine 05/06/21 documented as of this encounter
--- OUTSIDE RECORDS SUMMARY | 2024-11-11 15:30 | XMS_ITS | Encounter Summary ---
Author Organization [facility] Address [address] [place] [address] Care Team Providers Care Travograph Operator Name Role Phone Caitlyn Bowie MD Primary Care Provider +1- [phone] Encounter Details Date Type Department Care Team (Late st Contact Info) Description 12/19/2016 Scanned Document [facility] Health Information Management [address] [place] [address] External, Provider Social History Tobacco Use Types [...] [facility] 240 [facility] Building [address] [place], [place] [address] Ronald Mills MD 240 [facility] Max [address]1 [place] [address] documented as of this encounter [...] documented as of this encounter Care Teams Travograph Operator Relationship Specialty Start Date End Date Caitlyn Bowie MD [facility] 1 [place] [address] PCP - General Internal Medicine 05/06/21 Henry Kelly MD Pulmonary Department 175 [facility], [address] [place] [address] Physician Pulmonary Disease 09/06/17 06/22/20 documented as of this encounter
--- OUTSIDE RECORDS SUMMARY | 2024-11-11 15:30 | XMS_ITS | Encounter Summary ---
Author Organization [facility] Address [address] [place] [address] Care Team Providers Care Electric Razor Mechanic Name Role Phone Caitlyn Bowie MD Primary Care Provider +1- [phone] Encounter Details Date Type Department Care Team (Late st Contact Info) Description 02/20/2017 Scanned Document [facility] Health Information Management [address] [place] [address] External, Provider Social History Tobacco Use Types [...] – [facility] 240 [facility] Building [address] [place], [place] [address] Ronald Mills MD 240 [facility] Max [address] [place] [address] documented as of this encounter [...] as of this encounter Care Teams Electric Razor Mechanic Relationship Specialty Start Date End Date Caitlyn Bowie MD 3400 [facility] Max 1 [place] [address] PCP - General Internal Medicine 05/06/21 Henry Kelly MD Pulmonary Department 175 [facility], [address] [place] [address] Physician Pulmonary Disease 09/06/17 06/22/20 documented as of this encounter
--- OUTSIDE RECORDS SUMMARY | 2024-11-11 15:30 | XMS_ITS | Encounter Summary ---
Author Organization [facility] and [facility] Address [address] [place] [address] Care Team Providers Care Lead Portfolio Manager Name Role Phone Caitlyn Bowie MD Primary Care Provider +1- [phone] Encounter Details Date Type Department Care Team (Late st Contact Info) Description 02/02/2017 Scanned Document [facility] Health Information Management [address] [place] [address] External, Provider Social History Tobacco Use Types [...] [facility] 240 [facility] Building [address] [place], [place] [address] Ronald Mills MD 240 [facility] A1 [place] [address] documented as of this encounter Visit Diagnoses Not on filedocumented in this encounter Additional Health Concerns Infection Onset Date Last Indicated Resolved Time COVID-19 03/05/2022 03/05/2022 03/15/2022 7:18 PM EDT documented as of this encounter Care Teams Lead Portfolio Manager Relationship Specialty Start Date End Date Caitlyn Bowie MD 3400 [facility] 1 [place] [address] PCP - General Internal Medicine 05/06/21 Henry Kelly MD Pulmonary Department 175 [facility], [address] [place] [address] Physician Pulmonary Disease 09/06/17 06/22/20 documented as of this encounter
--- OUTSIDE RECORDS SUMMARY | 2024-11-11 15:30 | XMS_ITS | Encounter Summary ---
Author Organization [facility] and [facility] Address [address] [place] [address] Care Team Providers Care Sample Mounter Name Role Phone Caitlyn Bowie MD Primary Care Provider +1- [phone] Encounter Details Date Type Department Care Team (Late st Contact Info) Description 12/16/2016 Scanned Document [facility] Health Information Management [address] [place] [phone] External, Provider Social History Tobacco Use Types [...] [facility] Building [address] [place], [place] [phone] Ronald Mills MD 240 [facility] A1 [place] [address] documented as of this encounter Visit Diagnoses Not on filedocumented in this encounter Additional Health Concerns Infection Onset Date Last Indicated Resolved Time COVID-19 03/05/2022 03/05/2022 03/15/2022 7:18 PM EDT documented as of this encounter Care Teams Sample Mounter Relationship Specialty Start Date End Date Caitlyn Bowie MD 3400 [facility] 1 [place] [address] PCP - General Internal Medicine 05/06/21 Henry Kelly MD Pulmonary Department 175 [facility], [address] [place] [address] Physician Pulmonary Disease 09/06/17 06/22/20 documented as of this encounter
--- OUTSIDE RECORDS SUMMARY | 2024-11-11 15:30 | XMS_ITS | Encounter Summary ---
Author Organization [facility] and [facility] Address [address] [place] [address] Care Team Providers Care Security Agent Name Role Phone Caitlyn Bowie MD Primary Care Provider +1- [phone] Encounter Details Date Type Department Care Team (Late Contact Info) Description 09/18/2020 Scanned Document [facility] Health Information Management [address] [place] [phone] External, Provider Social History Tobacco Use Types [...] [facility] 240 [facility] Building [address] [place], [place] [address] Ronald Mills MD [address] [place] [address] [address] [place] [address] documented as of this encounter [...] as of this encounter Care Teams Security Agent Relationship Specialty Start Date End Date Caitlyn Bowie MD [address] [address] PCP - General Internal Medicine 05/06/21 documented as of this encounter
--- OUTSIDE RECORDS SUMMARY | 2024-11-11 15:31 | XMS_ITS | Encounter Summary ---
Author Organization [facility] and [facility] Address [address] [place] [address] Care Team Providers Care Director Of Culture Name Role Phone Caitlyn Bowie MD Primary Care Provider +1- [phone] Encounter Details Date Type Department Care Team (Late st Contact Info) Description 03/23/2021 Scanned Document INTERFACE DEFAULT [address] [place] [address] System, Provider Not In Social History Tobacco [...] [facility] 240 [facility] Building [address] [place] [address] Ronald Mills MD [address] [place] [address] [address] [place] [address] documented as of this encounter [...] of this encounter Care Teams Director Of Culture Relationship Specialty Start Date End Date Caitlyn Bowie MD [address] [address] PCP - General Internal Medicine 05/06/21 documented as of this encounter
--- OUTSIDE RECORDS SUMMARY | 2024-11-11 15:31 | XMS_ITS | Encounter Summary ---
Author Organization [facility] and [facility] Address [address] [place] [address] Care Team Providers Care Encoding Clerk Name Role Phone Caitlyn Bowie MD Primary Care Provider +1- [phone] Encounter Details Date Type Department Care Team (Late st Contact Info) Description 11/29/2019 Scanned Document [facility] Health Information Management [address] [place] [address] External, Provider Social History Tobacco Use Types [...] Telemedicine [facility] Center at [facility] [address] [facility] [address] [place], [place] [id number] Ronald Mills MD [address] [place] [address] [address] [place] [address] documented as of this encounter [...] documented as of this encounter Care Teams Encoding Clerk Relationship Specialty Start Date End Date Caitlyn Bowie MD 3400 [facility] 1 [place] [address] PCP - General Internal Medicine 05/06/21 Henry Kelly MD Pulmonary Department 175 [facility], [address] [place] [address] Physician Pulmonary Disease 09/06/17 06/22/20 documented as of this encounter
--- OUTSIDE RECORDS SUMMARY | 2024-11-11 15:31 | XMS_ITS | Clinical Summary ---
Author Organization [facility] Address [address] [place] [address] Care Team Providers Care Commercial Energy Rater Name Role Phone Brennan Burnett MD Primary Care Provider [phone] Allergies Active Allergy Reactions Criticality Noted Date [...] age to complete this topic Care Teams Commercial Energy Rater Relationship Specialty Start Date End Date Brennan Burnett MD [address] [place] [address] PCP - General Internal Medicine 07/06/20
--- OUTSIDE RECORDS SUMMARY | 2024-11-11 15:31 | XMS_ITS | Encounter Summary ---
Author Organization [facility] and [facility] Address [address] [place] [address] Care Team Providers Care Electrical Sign Wirer Name Role Phone Caitlyn Bowie MD Primary Care Provider +1- [phone] Encounter Details Date Type Department Care Team (Late st Contact Info) Description 06/07/2017 Scanned Document [facility] Health Information Management [address] [place] [address] External, Provider Social History Tobacco Use Types [...] [facility] Building [address] [place], [place] [phone] Ronald Mills MD [address] [place] [address] [address] [place] [address] documented as of this encounter [...] this encounter Care Teams Electrical Sign Wirer Relationship Specialty Start Date End Date Caitlyn Bowie MD 3400 [facility] 1 [place] [address] PCP - General Internal Medicine 05/06/21 Henry Kelly MD Pulmonary Department 175 [facility], [address] [place] [address] Physician Pulmonary Disease 09/06/17 06/22/20 documented as of this encounter
--- OUTSIDE RECORDS SUMMARY | 2024-11-11 15:31 | XMS_ITS | Encounter Summary ---
Author Organization [facility] and [facility] Address [address] [place] [address] Care Team Providers Care Instrumentation Instructor Name Role Phone Caitlyn Bowie MD Primary Care Provider +1- [phone] Encounter Details Date Type Department Care Team (Late st Contact Info) Description 12/03/2019 Scanned Document [facility] Health Information Management [address] [place] [address] External, Provider Social History Tobacco Use Types [...] [facility] [address] [facility] [address] [place] [address] Ronald Mills MD [address] [place] [address] [address] [place] [address] documented as of this encounter Visit Diagnoses Not on filedocumented in this encounter Additional Health Concerns Infection Onset Date Last Indicated Resolved Time COVID-19 03/05/2022 03/05/2022 03/15/2022 7:18 PM EDT Assessment Noted Time PHQ-9 Depression Total Score: 2 11/07/19 19 2:06 PM EDT documented as of this encounter Care Teams Instrumentation Instructor Relationship Specialty Start Date End Date Caitlyn Bowie MD 3400 [facility] 1 [place] [address] PCP - General Internal Medicine 05/06/21 Henry Kelly MD Pulmonary Department 175 [facility], [address] [place] [address] Physician Pulmonary Disease 09/06/17 06/22/20 documented as of this encounter
--- OUTSIDE RECORDS SUMMARY | 2024-11-11 15:31 | XMS_ITS | Encounter Summary ---
Author Organization [facility] and [facility] Address [address] [place] [address] Care Team Providers Care Plumbing Engineer Name Role Phone Caitlyn Bowie MD Primary Care Provider +1- [phone] Encounter Details Date Type Department Care Team (Late st Contact Info) Description 08/21/2017 Scanned Document [facility] Health Information Management [address] [place] [address] External, Provider Social History Tobacco Use Types [...] [facility] 240 [facility] Building [address] [place], [place] [id number] Ronald Mills MD [address] [place] [address] [address] [place] [address] documented as of this encounter [...] as of this encounter Care Teams Plumbing Engineer Relationship Specialty Start Date End Date Caitlyn Bowie MD 3400 [facility] 1 [place] [address] PCP - General Internal Medicine 05/06/21 Henry Kelly MD Pulmonary Department 175 [facility], [address] [place] [address] Physician Pulmonary Disease 09/06/17 06/22/20 documented as of this encounter
--- OUTSIDE RECORDS SUMMARY | 2024-11-11 15:31 | XMS_ITS | Encounter Summary ---
Author Organization [facility] and [facility] Address [address] [place] [address] Care Team Providers Care Swatcher Name Role Phone Caitlyn Bowie MD Primary Care Provider +1- [phone] Encounter Details Date Type Department Care Team (Late st Contact Info) Description 12/16/2016 Scanned Document [facility] Health Information Management [address] [place] [address] External, Provider Social History Tobacco Use Types [...] [facility] 240 [facility] Building [address] [place], [place] [phone] Ronald Mills MD 240 [facility] [address] [place] [address] documented as of this encounter [...] [facility] 1 [place] [address] PCP - General Internal Medicine 05/06/21 Henry Kelly MD Pulmonary Department 175 [facility], [address] [place] [address] Physician Pulmonary Disease 09/06/17 06/22/20 documented as of this encounter
--- OUTSIDE RECORDS SUMMARY | 2024-11-11 15:31 | XMS_ITS | Encounter Summary ---
Author Organization [facility] and [facility] Address [address] [place] [address] Care Team Providers Care Choir Member Name Role Phone Caitlyn Bowie MD Primary Care Provider +1- [phone] Encounter Details Date Type Department Care Team (Late st Contact Info) Description 08/16/2012 Abstract [facility] Health Information Management [address] [place] [address] [place], Primary Care [address] [place] [address] Social History Tobacco Use Types Packs/Day Years [...] 4:00 PM EDT Telemedicine Cancer Center at [address] [place], [place] [phone] Ronald Mills MD 240 [facility] Max [address] [place] [address] documented as of this encounter Visit Diagnoses Not on filedocumented in this encounter Additional Health Concerns Infection Onset Date Last Indicated Resolved Time COVID-19 03/05/2022 03/05/2022 03/15/2022 7:18 PM EDT documented as of this encounter Care Teams Choir Member Relationship Specialty Start Date End Date Caitlyn Bowie MD 3400 [facility] 1 [place] [address] PCP - General Internal Medicine 05/06/21 Henry Kelly MD Pulmonary Department [address] [place] [address], [address] [place] [address] Physician Pulmonary Disease 09/06/17 06/22/20 documented as of this encounter
--- OUTSIDE RECORDS SUMMARY | 2024-11-11 15:31 | XMS_ITS | Encounter Summary ---
Author Organization [facility] and [facility] Address [address] [place] [address] Care Team Providers Care Audio Visual Engineer Name Role Phone Caitlyn Bowie MD Primary Care Provider +1- [phone] Encounter Details Date Type Department Care Team (Late st Contact Info) Description 07/26/2012 Abstract [facility] Health Information Management [address] [place] [address] [place], Primary Care [address] [place] [address] Social History Tobacco Use Types Packs/Day Years [...] 4:00 PM EDT Telemedicine Cancer Center at [address] [place], [place] [address] Ronald Mills MD [address] [place] [address] documented as of this encounter Visit Diagnoses Not on filedocumented in this encounter Additional Health Concerns Infection Onset Date Last Indicated Resolved Time COVID-19 03/05/2022 03/05/2022 03/15/2022 7:18 PM EDT documented as of this encounter Care Teams Audio Visual Engineer Relationship Specialty Start Date End Date Caitlyn Bowie MD 3400 [facility] 1 [place] [address] PCP - General Internal Medicine 05/06/21 Henry Kelly MD Pulmonary Department 175 [facility], [address] [place] [address] Physician Pulmonary Disease 09/06/17 06/22/20 documented as of this encounter
--- OUTSIDE RECORDS SUMMARY | 2024-11-11 15:31 | XMS_ITS | Encounter Summary ---
Author Organization [facility] and [facility] Address 20 [place] [address] Care Team Providers Care Hourly Shift Manager Name Role Phone Caitlyn Bowie MD Primary Care Provider +1- [phone] Encounter Details Date Type Department Care Team (Late st Contact Info) Description 06/21/2012 Abstract [facility] at [address] [phone] Mikel Lloyd MD [address] [place] [phone] (Fax) Social History Tobacco Use Types Packs/Day [...] [facility] 240 [facility] Building [address] [place] [address] Ronald Mills MD 240 [facility] [address] [place] [address] documented as of this encounter Visit Diagnoses Not on filedocumented in this encounter Additional Health Concerns Infection Onset Date Last Indicated Resolved Time COVID-19 03/05/2022 03/05/2022 03/15/2022 7:18 PM EDT documented as of this encounter Care Teams Hourly Shift Manager Relationship Specialty Start Date End Date Caitlyn Bowie MD 3400 [facility] 1 [place] [address] PCP - General Internal Medicine 05/06/21 Henry Klely MD Pulmonary Department [address] [place] [address], [address] [place] [address] Physician Pulmonary Disease 09/06/17 06/22/20 documented as of this encounter
--- OUTSIDE RECORDS SUMMARY | 2024-11-11 15:31 | XMS_ITS | Encounter Summary ---
Author Organization [facility] and [facility] Address [address] [place] [address] Care Team Providers Care Protozoologist Name Role Phone Caitlyn Bowie MD Primary Care Provider +1- [phone] Encounter Details Date Type Department Care Team (Late st Contact Info) Description 06/27/2019 Scanned Document Onco-Oncology Program at [address] [place] [address] Norma Renee MD [address] [place] [address] 2 [place] [address] Social History Tobacco Use Types [...] 4:00 PM EDT Telemedicine Cancer Center at [address] [place], [place] [address] Ronald Mills MD 240 [facility] A1 [place] [address] documented as of this encounter Visit Diagnoses Not on filedocumented in this encounter Additional Health Concerns Infection Onset Date Last Indicated Resolved Time COVID-19 03/05/2022 03/05/2022 03/15/2022 7:18 PM EDT Assessment Noted Time PHQ-9 Depression Total Score: 2 11/07/19 19 2:06 PM EDT documented as of this encounter Care Teams Protozoologist Relationship Specialty Start Date End Date Caitlyn Bowie MD 3400 [facility] 1 [place] [address] PCP - General Internal Medicine 05/06/21 Henry Kelly MD Pulmonary Department 175 [facility], [address] [place] [address] Physician Pulmonary Disease 09/06/17 06/22/20 documented as of this encounter
--- OUTSIDE RECORDS SUMMARY | 2024-11-11 15:31 | XMS_ITS | Encounter Summary ---
Author Organization [facility] and [facility] Address [address] [place] [address] Care Team Providers Care Display Artist Name Role Phone Caitlyn Bowie MD Primary Care Provider +1- [phone] Encounter Details Date Type Department Care Team (Late st Contact Info) Description 04/27/2017 Scanned Document [facility] Health Information Management [address] [place] [address] External, Provider Social History Tobacco Use Types [...] [facility] Building [address] [place], [place] [id number] Ronald Mills MD 240 [facility] A1 [place] [address] documented as of this encounter Visit Diagnoses Not on filedocumented in this encounter Additional Health Concerns Infection Onset Date Last Indicated Resolved Time COVID-19 03/05/2022 03/05/2022 03/15/2022 7:18 PM EDT documented as of this encounter Care Teams Display Artist Relationship Specialty Start Date End Date Caitlyn Bowie MD 3400 [facility] 1 [place] [address] PCP - General Internal Medicine 05/06/21 Henry Kelly MD Pulmonary Department 175 [facility], [address] [place] [address] Physician Pulmonary Disease 09/06/17 06/22/20 documented as of this encounter
--- OUTSIDE RECORDS SUMMARY | 2024-11-11 15:31 | XMS_ITS | Encounter Summary ---
Author Organization [facility] and [facility] Address [address] [place] [address] Care Team Providers Care Crank Hand Name Role Phone Caitlyn Bowie MD Primary Care Provider +1- [phone] Encounter Details Date Type Department Care Team (Late st Contact Info) Description 04/22/2021 Scanned Document INTERFACE DEFAULT [address] [place] [address] System, Provider Not In Social History Tobacco [...] [facility] 240 [facility] Building [address] [place], [place] [phone] Ronald Mills MD [address] [place] [address] [address] [place] [address] documented as of this encounter [...] documented as of this encounter Care Teams Crank Hand Relationship Specialty Start Date End Date Caitlyn Bowie MD [facility] [address] [address] PCP - General Internal Medicine 05/06/21 documented as of this encounter
--- OUTSIDE RECORDS SUMMARY | 2024-11-11 15:31 | XMS_ITS | Encounter Summary ---
Author Organization [facility] and [facility] Address [address] [place] [address] Care Team Providers Care Assurance Officer Name Role Phone Caitlyn Bowie MD Primary Care Provider +1- [phone] Encounter Details Date Type Department Care Team (Late st Contact Info) Description 02/21/2017 Scanned Document [facility] Health Information Management [address] [place] [address] External, Provider Social History Tobacco Use Types [...] [facility] 240 [facility] Building [address] [place], [place] [address] Ronald Mills MD 240 [facility] Max [address] [place] [address] documented as of this encounter [...] documented as of this encounter Care Teams Assurance Officer Relationship Specialty Start Date End Date Caitlyn Bowie MD 3400 [facility] Max 1 [place] [address] PCP - General Internal Medicine 05/06/21 Henry Kelly MD Pulmonary Department 175 [facility], [address] [place] [address] Physician Pulmonary Disease 09/06/17 06/22/20 documented as of this encounter
--- OUTSIDE RECORDS SUMMARY | 2024-11-11 15:31 | XMS_ITS | Encounter Summary ---
Author Organization [facility] and [facility] Address [address] [place] [address] Care Team Providers Care Cleaner And Preparer Name Role Phone Caitlyn Bowie MD Primary Care Provider +1- [phone] Encounter Details Date Type Department Care Team (Late st Contact Info) Description 03/01/2017 Scanned Document Onco-Oncology Program at [address] [place] [address] Norma Renee MD [address] [place] [address] 2 [place] [phone] Social History Tobacco Use Types Packs/Day Years [...] 4:00 PM EDT Telemedicine Cancer Center at [address] [place] [address] Ronald Mills MD 240 [facility] A1 [place] [address] documented as of this encounter Visit Diagnoses Not on filedocumented in this encounter Additional Health Concerns Infection Onset Date Last Indicated Resolved Time COVID-19 03/05/2022 03/05/2022 03/15/2022 7:18 PM EDT documented as of this encounter Care Teams Cleaner And Preparer Relationship Specialty Start Date End Date Caitlyn Bowie MD 3400 [facility] Max 1 [place] [address] PCP - General Internal Medicine 05/06/21 Henry Kelly MD Pulmonary Department 175 [facility], [address] [place] [address] Physician Pulmonary Disease 09/06/17 06/22/20 documented as of this encounter
--- OUTSIDE RECORDS SUMMARY | 2024-11-11 15:31 | XMS_ITS | Encounter Summary ---
Author Organization [facility] and [facility] Address 20 [place] [address] Care Team Providers Care Greens Tier Name Role Phone Caitlyn Bowie MD Primary Care Provider +1- [phone] Encounter Details Date Type Department Care Team (Late st Contact Info) Description 11/26/2019 Scanned Document Cancer Center at [address] [address] External, Provider Social History Tobacco Use Types [...] Affairs [facility] 240 [facility] Building [address] [place], [place] [phone] Ronald Mills MD [address] [place] [address] [address]1 [place] [address] documented as of this encounter [...] documented as of this encounter Care Teams Greens Tier Relationship Specialty Start Date End Date Caitlyn Bowie MD 3400 [facility] 1 [place] [address] PCP - General Internal Medicine 05/06/21 Henry Kelly MD Pulmonary Department 175 [facility], [address] [place] [address] Physician Pulmonary Disease 09/06/17 06/22/20 documented as of this encounter
--- OUTSIDE RECORDS SUMMARY | 2024-11-11 15:31 | XMS_ITS | Clinical Summary ---
Author Organization [address] Address 20 [place] [address] Phone Care Team Providers Care Rewinder Operator Helper Name Role Phone Caitlyn Bowie MD Primary Care Provider +1- [phone] Allergies Active Allergy Reactions Criticality Noted Date [...] Exposed to tobacco smoke by family members [facility] Bronchiectasis COPD (chronic obstructive pulmonary disease) Mildly restrictive lung disease Resolved Problems Problem Noted Date Diagnosed Date Resolved Date KANDY (obstructive sleep apnea) 11/21/2016 01/22/2018 Carotid stenosis, asymptomatic, right 09/18/2015 06/10/2016 Encounters Date Type Department Care Team Description 10/31/2024 1:00 PM EDT Office Visit Hematology Program at [address] [address] Ronald Mills MD Hypokalemia (Primary Dx); VTE (venous thromboembolism); Antiphospholipid antibody syndrome (HC Code); Elevated homocysteine; Abnormal gamma globulin level; Pulmonary hypertension (HC Code) 10/31/2024 Telephone Hematology Program at [address] [address] Ronald Mills MD Appointment 10/25/2024 Orders Only Cancer Center at [address] [place] [address] Taya Nuno RN Hypokalemia (Primary Dx) 10/25/2024 Telephone Hematology Program at [address] [address] Ronald Mills MD Other; Triage 10/23/2024 Scanned Document INTERFACE DEFAULT [address] [place] [address] System, Provider Not In 10/23/2024 Telephone Hematology Program at [address] [address] Marcus Valera MD Triage 10/23/2024 Orders Only Hematology Program at [address] [place] [address] Ronald Mills MD VTE (venous thromboembolism) (Primary Dx); Antiphospholipid antibody syndrome (HC Code); Elevated homocysteine; Abnormal gamma globulin level; Feeding difficulties, unspecified 10/23/2024 Telephone Cancer Center at [address] [place] [address] Ronald Mills MD Labs Only 10/22/2024 Telephone Hematology Program at [address] [address] Ronald Mills MD Other 10/18/2024 10:30 AM EDT Office Visit [facility] [address] [place] [phone] Alfredo Michaud Jr. PA KANDY (obstructive sleep apnea) (Primary Dx); Fatigue, unspecified type; Excessive daytime sleepiness; MCI (mild cognitive impairment) with memory loss 09/30/2024 Orders Only [facility] [address] [place] [phone] Adalgisa Whitney MD KANDY (obstructive sleep apnea) 09/30/2024 Orders Only [facility] [address] [place] [address] Adalgisa Whitney MD KANDY (obstructive sleep apnea) (Primary Dx) 09/24/2024 Telephone Hematology Program at [address] [address] Ronald Mills MD Triage; Results 09/23/2024 Scanned Document INTERFACE DEFAULT 20 [place] [address] System, Provider Not In 09/15/2024 Scanned Document INTERFACE DEFAULT 20 [place] [address] System, Provider Not In 09/09/2024 Scanned Document INTERFACE DEFAULT 20 [place] [address] System, Provider Not In 08/30/2024 Abstract [facility] [address] [place] [address] Adalgisa Whitney MD from Last 3 Months Immunizations Name Administration [...] 4:00 PM EDT Telemedicine [facility] at [facility] [address] [place], [place] [address] Ronald Mills MD [address] [place] [address] Health [...] EST LAB SCAN 09/09/2024 12:00 AM EST COMPREHENSIVE METABOLIC PANEL Routine [...] 12:00 AM EDT) Only the most recent of12 resultswithin the time period is included. us Provider Not In System LAB BLOOD ORDERABLES Carmina l Result * (ABNORMAL) Comprehensive metabolic panel (04/05/2022 1:13 PM EDT) Sodium 138 136 - 144 mmol/L 04/05/2022 1:43 PM EDT [facility] DEPARTMENT OF LABORATORY MEDICINE [facility] Potassium 4.7 3.3 - 5.3 mmol/L 04/05/2022 1:43 PM EDT [facility] DEPARTMENT OF LABORATORY MEDICINE [facility] Chloride 100 98 - 107 mmol/L 04/05/2022 1:43 PM EDT [facility] DEPARTMENT OF LABORATORY MEDICINE [facility] CO2 30 20 - 30 mmol/L 04/05/2022 1:43 PM EDT [facility] DEPARTMENT OF LABORATORY MEDICINE [facility] Anion Gap 8 7 - 17 04/05/2022 1:43 PM EDT [facility] DEPARTMENT OF LABORATORY MEDICINE [facility] Glucose 115(H) 70 - 100 mg/dL 04/05/2022 1:43 PM EDT [facility] DEPARTMENT OF LABORATORY MEDICINE [facility] BUN 16 8 - 23 mg/dL 04/05/2022 1:43 PM EDT [facility] DEPARTMENT OF LABORATORY MEDICINE [facility] Creatinine 0.89 0.40 - 1.30 mg/dL 04/05/2022 1:43 PM T [facility] DEPARTMENT LABORATORY MEDICINE [facility] Calcium 10.5(H) 8.8 - 10.2 mg/dL 04/05/2022 1:43 PM T [facility] DEPARTMENT OF LABORATORY MEDICINE [facility] BUN/Creatinine Ratio 18.0 8.0 - 23.0 03/11 1:43 PM [facility] DEPARTMENT LABORATORY MEDICINE [facility] Total Protein 7.0 6.6 - 8.7 g/dL 04/05/2022 1:43 PM [facility] DEPARTMENT OF LABORATORY MEDICINE [facility] Albumin 4.2 3.6 - 4.9 g/dL 04/05/2022 1:43 PM T [facility] DEPARTMENT OF LABORATORY MEDICINE [facility] Total Bilirubin 0.6 <=1.2 mg/dL 04/05/2022 1:43 PM [facility] DEPARTMENT LABORATORY MEDICINE [facility] Alkaline Phosphatase 58 9 - 122 U/L 04/05/2022 1:43 PM [facility] DEPARTMENT LABORATORY MEDICINE [facility] Alanine Aminotransferase (ALT) 19 10 - 35 U/L 04/05/2022 1:43 PM [facility] DEPARTMENT OF LABORATORY MEDICINE [facility] Comment:Calcium dobesilate c an cause artificially low ALT results at therapeutic concentrations Aspartate Aminotransferase (AST) 26 10 - 35 U/L 04/05/2022 1:43 PM [facility] DEPARTMENT LABORATORY MEDICINE [facility] Globulin 2.8 2.3 - 3.5 g/dL 04/05/2022 1:43 PM [facility] DEPARTMENT LABORATORY MEDICINE [facility] A/G Ratio 1.5 1.0 - 2.2 04/05/2022 1:43 PM T [facility] DEPARTMENT OF LABORATORY MEDICINE [facility] AST/ALT Ratio 1.4 See Comment 04/05/2022 1:43 PM EDT [facility] DEPARTMENT OF LABORATORY MEDICINE [facility] Comment: Adult with mild elevations of [...] >=60 mL/min/1.7 3m2 04/05/2022 1:43 PM EDT [facility] DEPARTMENT OF LABORATORY MEDICINE [facility] Comment:Estimated glomerular filtration rate (eGFR) [...] MD LAB BLOOD ORDERABLES Final Resul t [facility] OF LABORATORY MEDICINE [facility] [address] [place] [address] * Bone Density Result Scan (05/10/2017) us [...] Fin al Result Performing Organization Address [facility]/State/[facility] Co de Phone Number [facility] [address] [place] [address] * MAMMOGRAPHY REPORT (04/25/2013 6:47 AM EDT) 04/25/2013 6:47 AM EDT us Provider Not In System IMG SCAN REPORTS Final Re sult from Last 3 Months or Most Recently Relevant to Health Maintenance Insurance MEDICARE [facility] MEDICARE [facility] MEDICARE [facility] MEDICARE MEDICARE BCBS Advance Directives * Full ACLS (Latest Code Status on File) Date Activated Date Inactivated Comments 12/15/2018 7:13 PM 12/16/2018 6:09 PM * Full Interventions Date Activated Date Inactivated Comments 03/18/2016 6:34 PM 03/19/2016 6:40 PM Care Teams Rewinder Operator Helper Relationship Specialty Start Date End Date Caitlyn Bowie MD [address] [address] PCP - General Internal Medicine 05/06/21
--- OUTSIDE RECORDS SUMMARY | 2024-11-11 15:31 | XMS_ITS | Encounter Summary ---
Author Organization [facility] Address [address] [place] [address] Care Team Providers Care Vacuum Furnace Operator Name Role Phone Caitlyn Bowie MD Primary Care Provider +1- [phone] Encounter Details Date Type Department Care Team (Late st Contact Info) Description 04/16/2021 Scanned Document INTERFACE DEFAULT [address] [place] [address] System, Provider Not In Social History Tobacco [...] [facility] Building [address] [place], [place] [phone] Ronald Mills MD [address] [place] [address] [address] [place] [address] documented as of this encounter [...] documented as of this encounter Care Teams Vacuum Furnace Operator Relationship Specialty Start Date End Date Caitlyn Bowie MD [facility] [address] [address] PCP - General Internal Medicine 05/06/21 documented as of this encounter
--- OUTSIDE RECORDS SUMMARY | 2024-11-11 15:31 | XMS_ITS | Encounter Summary ---
Author Organization [facility] and [facility] Address [address] [place] [address] Care Team Providers Care Clinical Asst Name Role Phone Caitlyn Bowie MD Primary Care Provider +1- [phone] Encounter Details Date Type Department Care Team (Late st Contact Info) Description 06/27/2019 Scanned Document Onco-Oncology Program at [address] [place] [address] Norma Renee MD [address] [place] [address] 2 [place] [address] Social History Tobacco Use Types [...] 4:00 PM EDT Telemedicine Cancer Center at [address] [place], [place] [phone] Ronald Mills MD 240 [facility] A1 [place] [address] documented as of this encounter Visit Diagnoses Not on filedocumented in this encounter Additional Health Concerns Infection Onset Date Last Indicated Resolved Time COVID-19 03/05/2022 03/05/2022 03/15/2022 7:18 PM EDT Assessment Noted Time PHQ-9 Depression Total Score: 2 11/07/19 19 2:06 PM EDT documented as of this encounter Care Teams Clinical Asst Relationship Specialty Start Date End Date Caitlyn Bowie MD 3400 [facility] 1 [place] [address] PCP - General Internal Medicine 05/06/21 Henry Kelly MD Pulmonary Department 175 [facility], [address] [place] [address] Physician Pulmonary Disease 09/06/17 06/22/20 documented as of this encounter
--- OUTSIDE RECORDS SUMMARY | 2024-11-11 15:31 | XMS_ITS | Encounter Summary ---
Author Organization [facility] and [facility] Address [address] [place] [address] Care Team Providers Care Pediatric Physiatrist Name Role Phone Caitlyn Bowie MD Primary Care Provider +1- [phone] Encounter Details Date Type Department Care Team (Late st Contact Info) Description 08/29/2019 Scanned Document Cancer Center at [address] [address] External, Provider Social History Tobacco Use Types [...] [facility] at [facility] [address] [facility] [address] [place], [place] [phone] Ronald Mills MD [address] [place] [address] [address] [place] [address] documented as of this encounter [...] as of this encounter Care Teams Pediatric Physiatrist Relationship Specialty Start Date End Date Caitlyn Bowie MD 3400 [facility] 1 [place] [address] PCP - General Internal Medicine 05/06/21 Henry Kelly MD Pulmonary Department 175 [facility], [address] [place] [address] Physician Pulmonary Disease 09/06/17 06/22/20 documented as of this encounter
--- OUTSIDE RECORDS SUMMARY | 2024-11-11 15:31 | XMS_ITS | Encounter Summary ---
Author Organization [facility] and [facility] Address [address] [place] [address] Care Team Providers Care Rolls Mill Operator Name Role Phone Caitlyn Bowie MD Primary Care Provider +1- [phone] Encounter Details Date Type Department Care Team (Late st Contact Info) Description 07/12/2019 Scanned Document Onco-Oncology Program at [address] [place] [address] Norma Renee MD [address] [place] [address] 2 [place] [address] Social History Tobacco Use Types [...] 4:00 PM EDT Telemedicine Cancer Center at [address] [place], [place] [phone] Ronald Mills MD 240 [facility] [address] [place] [address] documented as of this encounter Visit Diagnoses Not on filedocumented in this encounter Additional Health Concerns Infection Onset Date Last Indicated Resolved Time COVID-19 03/05/2022 03/05/2022 03/15/2022 7:18 PM EDT Assessment Noted Time PHQ-9 Depression Total Score: 2 11/07/19 19 2:06 PM EDT documented as of this encounter Care Teams Rolls Mill Operator Relationship Specialty Start Date End Date Caitlyn Bowie MD 3400 [facility] 1 [place] [address] PCP - General Internal Medicine 05/06/21 Henry Kelly MD Pulmonary Department 175 [facility], [address] [place] [address] Physician Pulmonary Disease 09/06/17 06/22/20 documented as of this encounter
--- OUTSIDE RECORDS SUMMARY | 2024-11-11 15:31 | XMS_ITS | Encounter Summary ---
Author Organization [facility] Address [address] [place] [address] Care Team Providers Care Furniture Lumber Production Worker Name Role Phone Caitlyn Bowie MD Primary Care Provider +1- [phone] Encounter Details Date Type Department Care Team (Late st Contact Info) Description 08/09/2017 Scanned Document Cardiovascular Medicine at [address] [place] [address] System, Provider Not In Social History Tobacco [...] [facility] Building [address] [place] [address] Ronald Mills MD 240 [facility] [address] [place] [address] documented as of this encounter [...] documented as of this encounter Care Teams Furniture Lumber Production Worker Relationship Specialty Start Date End Date Caitlyn Bowie MD 3400 [facility] Max 1 [place] [address] PCP - General Internal Medicine 05/06/21 Henry Kelly MD Pulmonary Department 175 [facility], [address] [place] [address] Physician Pulmonary Disease 09/06/17 06/22/20 documented as of this encounter
--- OUTSIDE RECORDS SUMMARY | 2024-11-11 15:31 | XMS_ITS | Encounter Summary ---
Author Organization [facility] and [facility] Address [address] [place] [address] Care Team Providers Care Research Associate Quality Control Qc Name Role Phone Caitlyn Bowie MD Primary Care Provider +1- [phone] Encounter Details Date Type Department Care Team (Late st Contact Info) Description 04/18/2013 Documentation Hematology Program at [address] [address] Isis Ragland RN Social History Tobacco Use [...] [facility] 240 [facility] Building [address] [place], [place] [phone] Ronald Mills MD 240 [facility] A1 [place] [address] documented as of this encounter Visit Diagnoses Not on filedocumented in this encounter Additional Health Concerns Infection Onset Date Last Indicated Resolved Time COVID-19 03/05/2022 03/05/2022 03/15/2022 7:18 PM EDT documented as of this encounter Care Teams Research Associate Quality Control Qc Relationship Specialty Start Date End Date Caitlyn Bowie MD 3400 [facility] 1 [place] [address] PCP - General Internal Medicine 05/06/21 Henry Kelly MD Pulmonary Department 175 [facility], [address] [place] [address] Physician Pulmonary Disease 09/06/17 06/22/20 documented as of this encounter
--- OUTSIDE RECORDS SUMMARY | 2024-11-11 15:31 | XMS_ITS | Encounter Summary ---
Author Organization [facility] and [facility] Address [address] [place] [address] Care Team Providers Care Record Changer Tester Name Role Phone Cailtyn Bowie MD Primary Care Provider +1- [phone] Encounter Details Date Type Department Care Team (Latest Contact Info) Description 04/15/2013 Transcribed Orders [facility] 800 [place] [address] Tian Atwood MD [address] [facility] 102 [place] [address] Unspecified hypothyroidism (Primary Dx) Social [...] [facility] 240 [facility] Building [address] [place] [address] Ronald Mills MD 240 [facility] A1 [place] [address] documented as of this encounter Results * Copper, serum total (YH) (04/15/2013 4:31 PM EDT) Copper, Serum Total SEE BELOW [facility] Comment: Test ?Result ? Flag ??Unit ?RefValue Copper, S ? 1.35 ? mcg/mL ??0.75-1.45 04/15/2013 4:31 PM EDT us Tian Atwood MD LAB BLOOD ORDERABLES Final R esult Performing Organization Address City/State/[facility] Co de Phone Number [facility] [address] [place] [address] documented in this encounter Visit Diagnoses Diagnosis Unspecified hypothyroidism- Primary documented in this encounter Additional Health Concerns Infection Onset Date Last Indicated Resolved Time COVID-19 03/05/2022 03/05/2022 03/15/2022 7:18 PM EDT documented as of this encounter Care Teams Record Changer Tester Relationship Specialty Start Date End Date Caitlyn Bowie MD 3400 [facility] 1 [place] [address] PCP - General Internal Medicine 05/06/21 Henry Kelly MD Pulmonary Department 175 [facility], [address] [place] [address] Physician Pulmonary Disease 09/06/17 06/22/20 documented as of this encounter
--- OUTSIDE RECORDS SUMMARY | 2024-11-11 15:31 | XMS_ITS | Encounter Summary ---
Author Organization [facility] Address [address] [place] [address] Care Team Providers Care Dentist Name Role Phone Caitlyn Bowie MD Primary Care Provider +1- [phone] Encounter Details Date Type Department Care Team (Late st Contact Info) Description 04/10/2021 Scanned Document INTERFACE DEFAULT [address] [place] [address] System, Provider Not In Social History Tobacco [...] [facility] 240 [facility] [address] [place] [address] Ronald Mills MD [address] [place] [address] [address] [place] [address] documented as of this encounter [...] documented as of this encounter Care Teams Dentist Relationship Specialty Start Date End Date Caitlyn Bowie MD [address] [address] PCP - General Internal Medicine 05/06/21 documented as of this encounter
--- OUTSIDE RECORDS SUMMARY | 2024-11-11 15:31 | XMS_ITS | Encounter Summary ---
Author Organization [facility] Address [address] [place] [address] Care Team Providers Care Senior Test Analyst Name Role Phone Caitlyn Bowie MD Primary Care Provider +1- [phone] Encounter Details Date Type Department Care Team (Late st Contact Info) Description 01/28/2013 Scanned Document Thoracic Oncology Program at [address] [address] Solo Henry MD [address] [place] [address] Social History Tobacco Use Types Packs/Day [...] [facility] 240 [facility] [address] [place], [place] [address] Ronald Mills MD 240 [facility] [address] [place] [address] documented as of this encounter Visit Diagnoses Not on filedocumented in this encounter Additional Health Concerns Infection Onset Date Last Indicated Resolved Time COVID-19 03/05/2022 03/05/2022 03/15/2022 7:18 PM EDT documented as of this encounter Care Teams Senior Test Analyst Relationship Specialty Start Date End Date Caitlyn oBwie MD 3400 [facility] Max 1 [place] [address] PCP - General Internal Medicine 05/06/21 Henry Kelly MD Pulmonary Department 175 [facility], [address] [place] [address] Physician Pulmonary Disease 09/06/17 06/22/20 documented as of this encounter
--- OUTSIDE RECORDS SUMMARY | 2024-11-11 15:31 | XMS_ITS | Encounter Summary ---
Author Organization [facility] and [facility] Address [address] [place] [address] Care Team Providers Care Automatic Spooler Operator Name Role Phone Caitlyn Bowie MD Primary Care Provider +1- [phone] Encounter Details Date Type Department Care Team (Late st Contact Info) Description 01/22/2020 Scanned Document Lab for [facility] 800 [place] [address] Kerwin Menjivar MD 260 [facility] 3 [place] [address] Social History Tobacco Use Types [...] 4:00 PM EDT Telemedicine Cancer Center at [address] [place] [address] Ronald Mills MD 240 [facility] Max [address] [place] [address] documented as of this encounter Visit Diagnoses Not on filedocumented in this encounter Additional Health Concerns Infection Onset Date Last Indicated Resolved Time COVID-19 03/05/2022 03/05/2022 03/15/2022 7:18 PM EDT Assessment Noted Time PHQ-9 Depression Total Score: 2 11/07/19 19 2:06 PM EDT documented as of this encounter Care Teams Automatic Spooler Operator Relationship Specialty Start Date End Date Caitlyn Bowie MD [address] [address] PCP - General Internal Medicine 05/06/21 Henry Kelly MD Pulmonary Department [address] [place] [address], [address] [place] [address] Physician Pulmonary Disease 09/06/17 06/22/20 documented as of this encounter
--- OUTSIDE RECORDS SUMMARY | 2024-11-11 15:31 | XMS_ITS | Encounter Summary ---
Author Organization [facility] Address 20 [place] [address] Care Team Providers Care Reclamation Engineer Name Role Phone Caitlyn Bowie MD Primary Care Provider +1- [phone] Encounter Details Date Type Department Care Team (Late st Contact Info) Description 01/28/2013 Scanned Document Thoracic Oncology Program at [address] [address] Solo Henry MD [address] [place] [address] Social History Tobacco Use Types Packs/Day [...] [facility] 240 [facility] Building [address] [place], [place] [address] Ronald Mills MD 240 [facility] [address] [place] [address] documented as of this encounter Visit Diagnoses Not on filedocumented in this encounter Additional Health Concerns Infection Onset Date Last Indicated Resolved Time COVID-19 03/05/2022 03/05/2022 03/15/2022 7:18 PM EDT documented as of this encounter Care Teams Reclamation Engineer Relationship Specialty Start Date End Date Caitlyn Bowie MD 3400 [facility] Max 1 [place] [address] PCP - General Internal Medicine 05/06/21 Henry Kelly MD Pulmonary Department 175 [facility], [address] [place] [address] Physician Pulmonary Disease 09/06/17 06/22/20 documented as of this encounter
--- OUTSIDE RECORDS SUMMARY | 2024-11-11 15:31 | XMS_ITS | Encounter Summary ---
Author Organization [facility] and [facility] Address [address] [place] [address] Care Team Providers Care Negative Spotter Name Role Phone Caitlyn Bowie MD Primary Care Provider +1- [phone] Encounter Details Date Type Department Care Team (Late st Contact Info) Description 04/11/2021 Scanned Document [facility] Health Information Management [address] [place] [address] External, Provider Social History Tobacco Use Types [...] [facility] 240 [facility] Building [address] [place], [place] [address] Ronald Mills MD [address] [place] [address] [address]1 [place] [address] documented as of this encounter Visit Diagnoses Not on filedocumented in this encounter Additional Health Concerns Infection Onset Date Last Indicated Resolved Time COVID-19 03/05/2022 03/05/2022 03/15/2022 7:18 PM EDT Assessment Noted Time PHQ-9 Depression Total Score: 2 11/07/19 19 2:06 PM EDT documented as of this encounter Care Teams Negative Spotter Relationship Specialty Start Date End Date Caitlyn Bowie MD [address] [address] PCP - General Internal Medicine 05/06/21 documented as of this encounter
--- OUTSIDE RECORDS SUMMARY | 2024-11-11 15:31 | XMS_ITS | Encounter Summary ---
Author Organization [facility] and [facility] Address 20 [place] [address] Care Team Providers Care Safety Physician Name Role Phone Caitlyn Bowie MD Primary Care Provider +1- [phone] Encounter Details Date Type Department Care Team (Late st Contact Info) Description 08/29/2019 Scanned Document [facility] at [address] [address] External, Provider Social History Tobacco Use Types [...] [facility] 240 [facility] Building [address] [place], [place] [address] Ronald Mills MD [address] [place] [address] [address]1 [place] [address] documented as [...] as of this encounter Care Teams Safety Physician Relationship Specialty Start Date End Date Caitlyn Bowie MD 3400 [facility] 1 [place] [address] PCP - General Internal Medicine 05/06/21 Henry Kelly MD Pulmonary Department 175 [facility], [address] [place] [address] Physician Pulmonary Disease 09/06/17 06/22/20 documented as of this encounter
--- OUTSIDE RECORDS SUMMARY | 2024-11-11 15:31 | XMS_ITS | Encounter Summary ---
Author Organization [facility] and [facility] Address [address] [place] [address] Care Team Providers Care Pens And Pencils Dipper Name Role Phone Caitlyn Bowie MD Primary Care Provider +1- [phone] Encounter Details Date Type Department Care Team (Late st Contact Info) Description 03/24/2021 Scanned Document INTERFACE DEFAULT [address] [place] [address] System, Provider Not In Social History Tobacco [...] [facility] 240 [facility] Building [address] [place] [address] Ronald Mills MD [address] [place] [address] [address] [place] [address] documented as of this encounter Visit Diagnoses Not on filedocumented in this encounter Additional Health Concerns Infection Onset Date Last Indicated Resolved Time COVID-19 03/05/2022 03/05/2022 03/15/2022 7:18 PM EDT Assessment Noted Time PHQ-9 Depression Total Score: 2 11/07/19 19 2:06 PM EDT documented as of this encounter Care Teams Pens And Pencils Dipper Relationship Specialty Start Date End Date Caitlyn Bowie MD [address] [address] PCP - General Internal Medicine 05/06/21 documented as of this encounter
--- OUTSIDE RECORDS SUMMARY | 2024-11-11 15:31 | XMS_ITS | Encounter Summary ---
Author Organization [facility] and [facility] Address 20 [place] [address] Care Team Providers Care Accountant Assistant Name Role Phone Caitlyn Bowie MD Primary Care Provider +1- [phone] Encounter Details Date Type Department Care Team (Late st Contact Info) Description 04/26/2017 Scanned Document Cardiovascular Medicine at [address] [place] [address] System, Provider Not In Social History Tobacco [...] [facility] 240 [facility] Building [address] [place], [place] [address] Ronald Mills MD 240 [facility] [address] [place] [address] documented as of this encounter [...] as of this encounter Care Teams Accountant Assistant Relationship Specialty Start Date End Date Caitlyn Bowie MD 3400 [facility] Max 1 [place] [address] PCP - General Internal Medicine 05/06/21 Henry Kelly MD Pulmonary Department 175 [facility], [address] [place] [address] Physician Pulmonary Disease 09/06/17 06/22/20 documented as of this encounter
--- OUTSIDE RECORDS SUMMARY | 2024-11-11 15:31 | XMS_ITS | Encounter Summary ---
Author Organization [facility] and [facility] Address [address] [place] [address] Care Team Providers Care Sealer Sander Name Role Phone Caitlyn Bowie MD Primary Care Provider +1- [phone] Encounter Details Date Type Department Care Team (Late st Contact Info) Description 04/21/2021 Scanned Document INTERFACE DEFAULT [address] [place] [address] System, Provider Not In Social History Tobacco [...] [facility] 240 [facility] Building [address] [place], [place] [address] Ronald Mills MD [address] [place] [address] [address] [place] [address] documented as of this encounter [...] documented as of this encounter Care Teams Sealer Sander Relationship Specialty Start Date End Date Caitlyn Bowie MD [facility] [place] [facility] [address] [address] PCP - General Internal Medicine 05/06/21 documented as of this encounter
--- OUTSIDE RECORDS SUMMARY | 2024-11-11 15:31 | XMS_ITS | Encounter Summary ---
Author Organization [facility] and [facility] Address [address] [place] [address] Care Team Providers Care Electrician Chief Name Role Phone Caitlyn Bowie MD Primary Care Provider +1- [phone] Encounter Details Date Type Department Care Team (Late st Contact Info) Description 04/13/2021 Scanned Document INTERFACE DEFAULT [address] [place] [address] System, Provider Not In Social History Tobacco [...] [facility] Building [address] [place], [place] [address] Ronald Mills MD [address] [place] [address] [address] [place] [address] documented as of this encounter [...] as of this encounter Care Teams Electrician Chief Relationship Specialty Start Date End Date Caitlyn Bowie MD [address] [address] PCP - General Internal Medicine 05/06/21 documented as of this encounter
--- OUTSIDE RECORDS SUMMARY | 2024-11-11 15:31 | XMS_ITS | Encounter Summary ---
Author Organization [facility] and [facility] Address [address] [place] [address] Care Team Providers Care Senior Clinical Data Analyst Name Role Phone Caitlyn Bowie MD Primary Care Provider +1- [phone] Encounter Details Date Type Department Care Team (Late st Contact Info) Description 04/12/2021 Scanned Document INTERFACE DEFAULT [address] [place] [address] System, Provider Not In Social History Tobacco [...] [facility] 240 [facility] Building [address] [place], [place] [address] Ronald Mills MD [address] [place] [address] [address] [place] [address] documented as of this encounter [...] as of this encounter Care Teams Senior Clinical Data Analyst Relationship Specialty Start Date End Date Caitlyn Bowie MD [address] [address] PCP - General Internal Medicine 05/06/21 documented as of this encounter
--- OUTSIDE RECORDS SUMMARY | 2024-11-11 15:31 | XMS_ITS | Encounter Summary ---
Author Organization [facility] and [facility] Address [address] [place] [address] Care Team Providers Care Crusher Screen Repairer Name Role Phone Caitlyn Bowie MD Primary Care Provider +1- [phone] Encounter Details Date Type Department Care Team (Late st Contact Info) Description 07/01/2019 Scanned Document Onco-Oncology Program at [address] [place] [address] Norma Renee MD [address] [place] [address] 2 [place] [phone] Social History Tobacco Use Types Packs/Day Years [...] PM EDT Telemedicine Cancer Center at [address] [place], [place] [address] Ronald Mills MD 240 [facility] A1 [place] [address] documented as of this encounter Visit Diagnoses Not on filedocumented in this encounter Additional Health Concerns Infection Onset Date Last Indicated Resolved Time COVID-19 03/05/2022 03/05/2022 03/15/2022 7:18 PM EDT Assessment Noted Time PHQ-9 Depression Total Score: 2 11/07/19 19 2:06 PM EDT documented as of this encounter Care Teams Crusher Screen Repairer Relationship Specialty Start Date End Date Caitlyn Bowie MD 3400 [facility] 1 [place] [address] PCP - General Internal Medicine 05/06/21 Henry Kelly MD Pulmonary Department 175 [facility], [address] [place] [address] Physician Pulmonary Disease 09/06/17 06/22/20 documented as of this encounter
--- OUTSIDE RECORDS SUMMARY | 2024-11-11 15:31 | XMS_ITS | Encounter Summary ---
Author Organization [facility] and [facility] Address [address] [place] [address] Care Team Providers Care Ships Equipment Engineer Name Role Phone Caitlyn Bowie MD Primary Care Provider +1- [phone] Encounter Details Date Type Department Care Team (Late st Contact Info) Description 04/11/2021 Scanned Document INTERFACE DEFAULT [address] [place] [address] System, Provider Not In Social History Tobacco [...] [facility] 240 [facility] Building [address] [place], [place] [address] Ronald Mills MD [address] [place] [address] [address] [place] [address] documented as of [...] End Date Caitlyn Bowie MD [address] [address] PCP - General Internal Medicine 05/06/21 documented as of this encounter
--- OUTSIDE RECORDS SUMMARY | 2024-11-11 15:31 | XMS_ITS | Encounter Summary ---
Author Organization [facility] and [facility] Address [address] [place] [address] Care Team Providers Care Customer Sales Specialist Name Role Phone Caitlyn Bowie MD Primary Care Provider +1- [phone] Encounter Details Date Type Department Care Team (Late st Contact Info) Description 04/26/2017 Scanned Document Cardiovascular Medicine at [address] [place] [address] Norma Renee MD [address] [place] [phone] Social History Tobacco Use Types Packs/Day Years [...] PM EDT Telemedicine Cancer Center at [address] [place], [place] [address] Ronald Mills MD [address] [place] [address] [address]1 [place] [address] documented as of this encounter Visit Diagnoses Not on filedocumented in this encounter Additional Health Concerns Infection Onset Date Last Indicated Resolved Time COVID-19 03/05/2022 03/05/2022 03/15/2022 7:18 PM EDT documented as of this encounter Care Teams Customer Sales Specialist Relationship Specialty Start Date End Date Caitlyn Bowie MD 3400 [facility] 1 [place] [address] PCP - General Internal Medicine 05/06/21 Henry Kelly MD Pulmonary Department 175 [facility], [address] [place] [address] Physician Pulmonary Disease 09/06/17 06/22/20 documented as of this encounter
--- OUTSIDE RECORDS SUMMARY | 2024-11-11 15:31 | XMS_ITS | Encounter Summary ---
Author Organization [facility] and [facility] Address [address] [place] [address] Care Team Providers Care Rn Family Practice Name Role Phone Caitlyn Bowie MD Primary Care Provider +1- [phone] Encounter Details Date Type Department Care Team (Late st Contact Info) Description 04/02/2021 Scanned Document INTERFACE DEFAULT [address] [place] [address] System, Provider Not In Social History Tobacco [...] [facility] 240 [facility] Building [address] [place], [place] [address] Ronald Mills MD [address] [place] [address] [address] [place] [address] documented as of this encounter [...] as of this encounter Care Teams Rn Family Practice Relationship Specialty Start Date End Date Caitlyn Bowie MD [address] [address] PCP - General Internal Medicine 05/06/21 documented as of this encounter
--- OUTSIDE RECORDS SUMMARY | 2024-11-11 15:31 | XMS_ITS | Encounter Summary ---
Author Organization [facility] Address [address] [place] [address] Care Team Providers Care Photocopying Machine Operator Name Role Phone Caitlyn Bowie MD Primary Care Provider +1- [phone] Encounter Details Date Type Department Care Team (Late st Contact Info) Description 06/27/2019 Scanned Document Onco-Oncology Program at [address] [place] [address] Norma Renee MD [address] [place] [address] 2 [place] [address] Social History Tobacco Use Types [...] PM EDT Telemedicine Cancer Center at [address] [place], [place] [address] Ronald Mills MD 240 [facility] A1 [place] [address] documented as of this encounter Visit Diagnoses Not on filedocumented in this encounter Additional Health Concerns Infection Onset Date Last Indicated Resolved Time COVID-19 03/05/2022 03/05/2022 03/15/2022 7:18 PM EDT Assessment Noted Time PHQ-9 Depression Total Score: 2 11/07/19 19 2:06 PM EDT documented as of this encounter Care Teams Photocopying Machine Operator Relationship Specialty Start Date End Date Caitlyn Bowie MD 3400 [facility] 1 [place] [address] PCP - General Internal Medicine 05/06/21 Henry Kelly MD Pulmonary Department 175 [facility], [address] [place] [address] Physician Pulmonary Disease 09/06/17 06/22/20 documented as of this encounter
--- OUTSIDE RECORDS SUMMARY | 2024-11-11 15:32 | XMS_ITS | Encounter Summary ---
Author Organization [facility] and [facility] Address [address] [place] [address] Care Team Providers Care Hot Saw Helper Name Role Phone Caitlyn Bowie MD Primary Care Provider +1- [phone] Encounter Details Date Type Department Care Team ([facility] st Contact Info) Description 08/26/2014 Documentation [facility] [address] [place] [address] Shilpi Ibarra [address] [place] [address] Social History Tobacco Use Types Packs/Day Years [...] from the original note were not included. [facility] Progress Note This is a 69 y.o. female who was provided services by [facility]. Service Provided By:: Shilpi Ibarra Patient Status: return Length of Appointment: 60 minutes documented in this encounter Plan of Treatment Upcoming Encounters Date Type Department Care Team ([facility] st Contact Info) Description 04/25/2025 4:00 PM EDT Telemedicine [facility] 240 [facility] Building [address] [place] [address] Ronald Mills MD 240 [facility] Max [address] [place] [address] documented as of this encounter Visit Diagnoses Not on filedocumented in this encounter Additional Health Concerns Infection Onset Date Last Indicated Resolved Time COVID-19 03/05/2022 03/05/2022 03/15/2022 7:18 PM EDT documented as of this encounter Care Teams Hot Saw Helper Relationship Specialty Start Date End Date Caitlyn Bowie MD 3400 [facility] 1 [place] [address] PCP - General Internal Medicine 05/06/21 Henry Kelly MD Pulmonary Department 175 [facility], [address] [place] [address] Physician Pulmonary Disease 09/06/17 06/22/20 documented as of this encounter
--- OUTSIDE RECORDS SUMMARY | 2024-11-11 15:32 | XMS_ITS | Encounter Summary ---
Author Organization [facility] and [facility] Address [address] [address] Care Team Providers Care General Warehouse Worker Name Role Phone Caitlyn Boiwe MD Primary Care Provider +1- [phone] Encounter Details Date Type Department Care Team (Late st Contact Info) Description 03/14/2021 Scanned Document INTERFACE DEFAULT [address] [place] [address] System, Provider Not In Social History Tobacco [...] – [facility] 240 [facility] Building [address] [place], [place] [address] Ronald Mills MD [address] [place] [address] [address] [place] [address] documented as of this encounter [...] End Date Caitlyn Bowie MD [address] [address] PCP - General Internal Medicine 05/06/21 documented as of this encounter
--- OUTSIDE RECORDS SUMMARY | 2024-11-11 15:32 | XMS_ITS | Encounter Summary ---
Author Organization [facility] and [facility] Address [address] [place] [address] Care Team Providers Care Supervisor Cutting And Sewing Room Name Role Phone Caitlyn Bowie MD Primary Care Provider +1- [phone] Encounter Details Date Type Department Care Team (Late Contact Info) Description 02/02/2021 Scanned Document [facility] Health Information Management [address] [place] [address] External, Provider Social History Tobacco Use Types [...] [facility] 240 [facility] Building [address] [place], [place] [address] Ronald Mills MD [address] [place] [address] [address]1 [place] [address] documented as of this encounter Visit Diagnoses Not on filedocumented in this encounter Additional Health Concerns Infection Onset Date Last Indicated Resolved Time COVID-19 03/05/2022 03/05/2022 03/15/2022 7:18 PM EDT Assessment Noted Time PHQ-9 Depression Total Score: 2 11/07/19 19 2:06 PM EDT documented as of this encounter Care Teams Supervisor Cutting And Sewing Room Relationship Specialty Start Date End Date Caitlyn Bowie MD [address] [address] PCP - General Internal Medicine 05/06/21 documented as of this encounter
--- OUTSIDE RECORDS SUMMARY | 2024-11-11 15:32 | XMS_ITS | Encounter Summary ---
Author Organization [facility] and [facility] Address [address] [place] [address] Care Team Providers Care Vp Rheumatology Name Role Phone Caitlyn Bowie MD Primary Care Provider +1- [phone] Encounter Details Date Type Department Care Team (Late st Contact Info) Description 09/18/2020 Scanned Document INTERFACE DEFAULT [address] [place] [address] System, Provider Not In Social History Tobacco [...] [facility] at [facility] 240 [facility] Building [address] [place] [address] Ronald Mills MD [address] [place] [address] [address]1 [place] [address] documented as of this encounter Visit Diagnoses Not on filedocumented in this encounter Additional Health Concerns Infection Onset Date Last Indicated Resolved Time COVID-19 03/05/2022 03/05/2022 03/15/2022 7:18 PM EDT Assessment Noted Time PHQ-9 Depression Total Score: 2 11/07/19 19 2:06 PM EDT documented as of this encounter Care Teams Vp Rheumatology Relationship Specialty Start Date End Date Caitlyn Bowie MD [address] [address] PCP - General Internal Medicine 05/06/21 documented as of this encounter
--- OUTSIDE RECORDS SUMMARY | 2024-11-11 15:32 | XMS_ITS | Encounter Summary ---
Author Organization [facility] and [facility] Address [address] [place] [address] Care Team Providers Care Territory Service Representative Name Role Phone Caitlyn Bowie MD Primary Care Provider +1- [phone] Encounter Details Date Type Department Care Team (Late st Contact Info) Description 02/08/2021 Scanned Document INTERFACE DEFAULT [address] [place] [address] System, Provider Not In Social History Tobacco [...] [facility] 240 [facility] Building [address] [place] [address] Ronald Mills MD [address] [place] [address] [address] [place] [address] documented as of this encounter Visit Diagnoses Not on filedocumented in this encounter Additional Health Concerns Infection Onset Date Last Indicated Resolved Time COVID-19 03/05/2022 03/05/2022 03/15/2022 7:18 PM EDT Assessment Noted Time PHQ-9 Depression Total Score: 2 11/07/19 19 2:06 PM EDT documented as of this encounter Care Teams Territory Service Representative Relationship Specialty Start Date End Date Caitlyn Bowie MD [address] [address] PCP - General Internal Medicine 05/06/21 documented as of this encounter
--- OUTSIDE RECORDS SUMMARY | 2024-11-11 15:32 | XMS_ITS | Encounter Summary ---
Author Organization [facility] and [facility] Address [address] [place] [address] Care Team Providers Care Can Feeder Name Role Phone Caitlyn Bowie MD Primary Care Provider +1- [phone] Encounter Details Date Type Department Care Team (Late st Contact Info) Description 02/07/2021 Scanned Document INTERFACE DEFAULT [address] [place] [address] System, Provider Not In Social History Tobacco [...] [facility] Building [address] [place], [place] [id number] Ronald Mills MD [address] [place] [address] [address] [place] [address] documented as of this encounter [...] as of this encounter Care Teams Can Feeder Relationship Specialty Start Date End Date Caitlyn Bowie MD [address] [address] PCP - General Internal Medicine 05/06/21 documented as of this encounter
--- OUTSIDE RECORDS SUMMARY | 2024-11-11 15:32 | XMS_ITS | Encounter Summary ---
Author Organization [facility] and [facility] Address [address] [place] [address] Care Team Providers Care Seed Mill Superintendent Name Role Phone Caitlyn Bowie MD Primary Care Provider +1- [phone] Encounter Details Date Type Department Care Team (Late st Contact Info) Description 02/15/2021 Scanned Document INTERFACE DEFAULT [address] [place] [address] System, Provider Not In Social History Tobacco [...] [facility] 240 [facility] Building [address] [place] [address] Ronald Mills MD [address] [place] [address] [address]1 [place] [address] documented as of this encounter [...] End Date Caitlyn Bowie MD [address] [address] PCP - General Internal Medicine 05/06/21 documented as of this encounter
--- OUTSIDE RECORDS SUMMARY | 2024-11-11 15:32 | XMS_ITS | Clinical Summary ---
Author Organization 175 [facility] Address 175 [place] [address] Phone Care Team Providers Care Contour Sander Name Role Phone Brennan Burnett Primary Care Provider Allergies Active Allergy Reactions [...] Medications ASCORBIC ACID PO Take by mouth. Active ELDERBERRY FRUIT ORAL Elderberry 575 MG/5ML Syrup [...] DAY 4 Active famotidine (PEPCID) 40 mg tabletIndication s:Gastroesophage al reflux disease, unspecified whether esophagitis present Take 1 tablet (40 mg total) by mouth 2 (two) times a day. 60 each 11 5 08/23/19 26 Active Active Problems Problem Noted Date Diagnosed [...] 20 mg as needed by her previous manager special events which she has taken sporadically. I have asked her to take this daily to see if this improves her symptoms and she has a follow-up appointment with Dr. Shah on September 16 which she will keep. We also had a long conversation regarding the fact that she is seeing 3 different manager special events for the same problems. We informed her [...] continues to see Dr. Avalos or her manager special events at [facility]. She verbalized [...] right lower leg 03/06/2019 Antiphospholipid antibody syndrome ([facility] V24) 12/24/2018 Adrenal insufficiency ([facility] V24) 08/23/2018 Allergic rhinitis 08/23/2018 Hyperparathyroidism ([facility] V24) 08/23/2018 MRSA infection 08/23/2018 Overview (05/16/2024): 06/2009, s/p thoracotomy infection Osteoarthritis 08/23/2018 Radiation-induced pulmonary fibrosis ([facility] V2 4) 11/13/2017 Bronchiectasis ([facility] V24, [facility] V28) 2017 Leg edema 08/08/2017 Restrictive lung disease 08/08/2017 Chronic obstructive pulmonar y disease ([facility] V24, [facility] V28) 04/13/2017 Fibromyalgia 04/13/2017 Congestive heart failure ([facility] V24, [facility] V 28) 04/04/2017 Heterozygous factor V Leiden mutation ([facility] V 24) 04/04/2017 Obstructive sleep apnea syndrome 04/04/2017 Overview (05/16/2024): CPAP Pleural effusion 04/04/2017 Pulmonary hypertension ([facility] V24, [facility] V28 ) 04/04/2017 Multiple pulmonary nodules 03/17/2017 [...] Team Description 11/04/2024 Telephone Gastroenterology - [address] [facility] [address] [place] [address] Tim Gomes MD Provider Call Back 10/10/2024 1:00 PM EDT Office Visit [facility] [address] [facility] [address] [place] [address] Ayanna Jaffe MD 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); Gait abnormality; Memory change; Anxiety; Blurry vision 10/09/2024 12:45 PM EDT Treatment [facility] Speech Therapy [address] [address] Daphne Alarcon, HYBRID CORN BREEDER 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); Cognitive communication disorder; Unsp symptoms and signs w cognitive functions and awareness 10/09/2024 Plan of Care Documentation [facility] Speech [facility] [address] [phone] 08/26/2024 10:30 AM EST Telemedicine [facility] 175 [facility] 150 [place] [address] Ayanna Jaffe MD Anxiety (Primary Dx); Memory change; Gait abnormality; White matter lesion of central nervous system 08/23/2024 1:20 PM EST Office Visit Gastroenterology - [address] [facility] 299 [facility] 419 [place] [phone] Saima Amor, MEASUREMENT SPECIALIST Gastroesophageal reflux disease, unspecified whether esophagitis present (Primary Dx); Constipation, unspecified constipation type 08/19/2024 Telephone [facility] Speech [facility] [address] [address] Daphne Alarcon, HYBRID CORN BREEDER returning pt call from Last 3 Months Immunizations Name Administration [...] PROCEDURE: HISTORICAL TONSILLECTOMY OTHER SURGICAL HISTORY PROCEDURE: IA RMVL LUNG XCP TOT PNEUMONECTOMY SLEEVE LOBECTOMY; [...] pathology report UPPER GASTROINTESTINAL ENDOSCOPY 05/03/2015 PROCEDURE: IA UPPER GI ENDOSCOPY PERFORMED MITRAL CLIP PROCEDURE Medical History Medical History Date Comments Akathisia 04/15/2013 DX:Akathisia Anxiety 12/07/2016 DX:Anxiety Bronchiectasis ([facility] V24, [facility] V28) 08/08/2017 DX:Bronchiectasis (HCC) Cataract 08/26/2014 DX:Cataract Chronic obstructive pulmonar y disease ([facility] V24, [facility] V28) 04/13/2017 DX:Chronic obstructive pulm onary disease (HCC) 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 DX:Complica cole migraine Congestive heart failure ([facility] V24, [facility] V28) 04/04/2017 DX:Congestive heart failure (HCC) History of deep vein thrombosis 04/04/2017 DX:History of deep vein thrombosis Diverticulitis of sigmoid colon 12/15/2016 DX:Diverticulitis of sigmoid colon Elevated liver enzymes 09/23/2015 DX:Elevat ed liver enzymes Fibromyalgia 04/13/2017 DX:Fibromyalgia Gastroesophageal reflux disease 11/17/2016 DX:Gastroesophageal reflux disease Glaucoma suspect 08/26/2014 DX:Glaucoma dori pect Heterozygous factor V Leiden mutation ([facility] V24) 04/04/2017 DX:Heterozygous factor V Lei den mutation ([facility]) History of pulmonary embolism 05/15/2017 DX :History of pulmonary embolism Hyperlipidemia 12/07/2016 DX:Hyperlipidemi a Hypothyroidism 12/07/2016 DX:Hypothyroidis m Insomnia 10/18/2016 DX:Insomnia Leg edema 08/08/2017 DX:Leg edema Multiple pulmonary nodules 03/17/2017 DX:Mu ltiple pulmonary nodules Optic neuropathy 08/26/2014 DX:Optic neurop athy Peripheral neuropathic pain 12/07/2016 DX:P eripheral neuropathic pain Pleural effusion 04/04/2017 DX:Pleural effu yaritza Postconcussion syndrome 02/18/2013 DX:Postc oncussion syndrome Pulmonary hypertension ([facility] V24, [facility] V28) 04/04/2017 DX:Pulmonary hypertension (H CC) Restrictive lung disease 08/08/2017 DX:Rest rictive lung disease 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 DX:Zinc deficien cy Obstructive sleep apnea syndrome 04/04/2017 DX:Obstructive sleep apnea syndrome; COMMENT: CPAP Radiation-induced pulmonary fibrosis ([facility] V24) 11/13/2017 DX:Radiation-induced pulmona ry fibrosis (HCC) Adrenal insufficiency ([facility] V24) 08/23/2018 DX:Adrenal insufficiency (HCC) Hyperparathyroidism ([facility] V24) 08/23/2018 DX:Hyperparathyroidism (HCC) Osteoporosis 11/17/2016 DX:Osteoporosis [...] Mx LLL resection, Chemo, RT, Cisplatin, Vinorelbine [id number] Antiphospholipid antibody sy ndrome ([facility] V24) 12/24/2018 DX:Antiphospholipid antibody syndrome (HCC) 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 Hyperparathyroidism ([facility] V24) DX:Hyperparathyroidism (HCC) Adrenal insufficiency ([facility] V24) DX:Adrenal insufficiency (HCC) Family History Medical [...] Description 12/10/2024 1:30 PM EDT Office Visit [facility] [place] [address] [facility] [address] [place] [address] Shirley Chaidez PA 175 [facility] 150 [place] [address] 12/23/2024 9:00 AM EDT Office Visit Vascular Surgery - [place] [address] [place] [address] Jerry Li MD [address] [place] [address] Health Maintenance Due Date Last Done Comments [...] mmol/L LAB CHEMISTRY METHOD 06/15/2024 2:10 PM EST [facility] Potassium 4.7 3.5 - 5.5 mmol/L LAB CHEMISTRY METHOD 06/15/2024 2:10 PM [facility] Chloride 102 96 - 110 mmol/L LAB CHEMISTRY METHOD 06/15/2024 2:10 PM [facility] CO2 34(H) 21 - 32 mmol/L LAB CHEMISTRY METHOD 06/15/2024 2:10 PM [facility] Anion Gap 4 3 - 11 LAB CHEMISTRY METHOD 06/15/2024 2:10 PM [facility] Glucose 95 70 - 100 mg/dL LAB CHEMISTRY METHOD 06/15/2024 2:10 PM [facility] BUN 29(H) 5 - 25 mg/dL LAB CHEMISTRY METHOD 06/15/2024 2:10 PM [facility] Creatinine 0.95 0.50 - 1.10 mg/dL LAB CHEMISTRY METHOD 06/15/2024 2:10 PM [facility] eGFR 60 >=60 mL/min/1. 73m2 LAB CHEMISTRY METHOD 06/15/2024 2:10 PM [facility] Comment:Calculation based on the??Chronic Kidney Disease Epidemiology Collaboration (CKD-EPI) equation refit??without adjustment for race. BUN/Creatinine Ratio 30.5 LAB CHEMISTRY METHOD 06/15/2024 2:10 PM [facility] Calcium 10.1 8.5 - 10.5 mg/dL LAB CHEMISTRY METHOD 06/15/2024 2:10 PM [facility] AST (SGOT) 35 10 - 42 unit/L LAB CHEMISTRY METHOD 06/15/2024 2:10 PM [facility] ALT (SGPT) 39 10 - 60 unit/L LAB CHEMISTRY METHOD 06/15/2024 2:10 PM [facility] Alkaline Phosphatase 83 42 - 121 unit/L LAB CHEMISTRY METHOD 06/15/2024 2:10 PM [facility] Total Protein 6.4 6.0 - 8.0 g/dL LAB CHEMISTRY METHOD 06/15/2024 2:10 PM EST [facility] Albumin 3.3 3.2 - 5.0 g/dL LAB CHEMISTRY METHOD 06/15/2024 2:10 PM EST [facility] Total Bilirubin 0.4 0.0 - 1.4 mg/dL LAB CHEMISTRY METHOD 06/15/2024 2:10 PM EST [facility] Blood Venous blood specimen / Unknown Venipuncture / Unknown 06/15/2024 1:26 PM EST 06/15/2024 1:32 PM EST us Jovana Cruz MD LAB BLOOD ORDERABLES Final Resul t [facility] ([facility]) [facility] [address] [place] [address], [place] [phone] from Last 3 Months or Most Recently Relevant to Health Maintenance Insurance MEDICARE [facility] Advance Directives Documents on File Type Date Recorded Patient Mirror Silverer Expl anation Health Care Decision (hx) 10/18/2013 [...] (hx) 10/04/2013 AD LACEY DIRECTIVE Care Teams Contour Sander Relationship Specialty Start Date End Date Brennan Burnett MD [address] [place] [address] PCP - General 05/06/24
--- OUTSIDE RECORDS SUMMARY | 2024-11-11 15:32 | XMS_ITS | Encounter Summary ---
Author Organization [facility] and [facility] Address [address] [place] [address] Care Team Providers Care Negative Stripper Name Role Phone Caitlyn Bowie MD Primary Care Provider +1- [phone] Encounter Details Date Type Department Care Team (Late st Contact Info) Description 01/27/2021 Scanned Document Cancer Center at [address] [address] External, Provider Social History Tobacco Use Types [...] Affairs [facility] 240 [facility] Building [address] [place], [place] [phone] Ronald Mills MD [address] [place] [address] [address] [place] [address] documented as of this encounter [...] as of this encounter Care Teams Negative Stripper Relationship Specialty Start Date End Date Caitlyn Bowie MD [address] [address] PCP - General Internal Medicine 05/06/21 documented as of this encounter
--- OUTSIDE RECORDS SUMMARY | 2024-11-11 15:32 | XMS_ITS | Encounter Summary ---
Author Organization [facility] and [facility] Address [address] [place] [address] Care Team Providers Care Medical Underwriter Name Role Phone Caitlyn Bowie MD Primary Care Provider +1- [phone] Encounter Details Date Type Department Care Team (Late st Contact Info) Description 10/16/2013 Scanned Document [facility] [address] [place] [address], 2nd floor [facility], [address] [place], [place] [address] Suzy Kong MD [address] [place] [address] Social History Tobacco Use Types Packs/Day [...] 4:00 PM EDT Telemedicine Cancer Center at [address] [place] [address] Ronald Mills MD 240 [facility] [address] [place] [address] documented as of this encounter Visit Diagnoses Not on filedocumented in this encounter Additional Health Concerns Infection Onset Date Last Indicated Resolved Time COVID-19 03/05/2022 03/05/2022 03/15/2022 7:18 PM EDT documented as of this encounter Care Teams Medical Underwriter Relationship Specialty Start Date End Date Caitlyn Bowie MD 34[address] [facility] [address] [place] [address] PCP - General Internal Medicine 05/06/21 Henry Kelly MD Pulmonary Department 175 [facility], [address] [place] [address] Physician Pulmonary Disease 09/06/17 06/22/20 documented as of this encounter
--- OUTSIDE RECORDS SUMMARY | 2024-11-11 15:32 | XMS_ITS | Encounter Summary ---
Author Organization [facility] and [facility] Address [address] [place] [address] Care Team Providers Care Clerical Aide Teacher Name Role Phone Caitlyn Bowie MD Primary Care Provider +1- [phone] Encounter Details Date Type Department Care Team (Late st Contact Info) Description 08/23/2017 Scanned Document [facility] Health Information Management [address] [place] [phone] External, Provider Social History Tobacco Use Types [...] Cancer Center at [facility] 240 [facility] Building [address] [place], [place] [phone] Ronald Mills MD [address] [place] [address] [address] [place] [address] documented as of this encounter [...] as of this encounter Care Teams Clerical Aide Teacher Relationship Specialty Start Date End Date Caitlyn Bowie MD 3400 [facility] 1 [place] [address] PCP - General Internal Medicine 05/06/21 Henry Kelly MD Pulmonary Department 175 [facility], [address] [place] [address] Physician Pulmonary Disease 09/06/17 06/22/20 documented as of this encounter
--- OUTSIDE RECORDS SUMMARY | 2024-11-11 15:32 | XMS_ITS | Encounter Summary ---
Author Organization [facility] and [facility] Address [address] [place] [address] Care Team Providers Care Upper Caser Name Role Phone Caitlyn Bowie MD Primary Care Provider +1- [phone] Encounter Details Date Type Department Care Team (Late st Contact Info) Description 03/22/2021 Scanned Document INTERFACE DEFAULT [address] [place] [address] System, Provider Not In Social History Tobacco [...] Center at [facility] 240 [facility] Building [address] [place] [address] Ronald Mills MD [address] [place] [address] [address] [place] [address] documented as of this encounter Visit Diagnoses Not on filedocumented in this encounter Additional Health Concerns Infection Onset Date Last Indicated Resolved Time COVID-19 03/05/2022 03/05/2022 03/15/2022 7:18 PM EDT Assessment Noted Time PHQ-9 Depression Total Score: 2 11/07/19 19 2:06 PM EDT documented as of this encounter Care Teams Upper Caser Relationship Specialty Start Date End Date Caitlyn Bowie MD [address] [phone] PCP - General Internal Medicine 05/06/21 documented as of this encounter
--- OUTSIDE RECORDS SUMMARY | 2024-11-11 15:32 | XMS_ITS | Encounter Summary ---
Author Organization [facility] and [facility] Address [address] [place] [address] Care Team Providers Care Hospitality House Supervisor Name Role Phone Caitlyn Bowie MD Primary Care Provider +1- [phone] Encounter Details Date Type Department Care Team (Late st Contact Info) Description 04/28/2015 Scanned Document [facility] Health Information Management [address] [place] [phone] External, Provider Social History Tobacco Use Types [...] Center at [facility] 240 [facility] Building [address] [place], [place] [phone] Ronald Mills MD 240 [facility] [address] [place] [address] documented as of this encounter Procedures Procedure Name Priority Date/Time Associated Diagnosis Comments LAB SCAN Routine 04/28/2015 documented in this encounter Results * Lab Scan (04/28/2015) Blood specimen (specimen) us Provider External LAB BLOOD ORDERABLES Edited Re sult - Final [facility] documented in this encounter Visit Diagnoses Not on filedocumented in this encounter Additional Health Concerns Infection Onset Date Last Indicated Resolved Time COVID-19 03/05/2022 03/05/2022 03/15/2022 7:18 PM EDT documented as of this encounter Care Teams Hospitality House Supervisor Relationship Specialty Start Date End Date Caitlyn Bowie MD 3400 [facility] 1 [place] [address] PCP - General Internal Medicine 05/06/21 Henry Kelly MD Pulmonary Department 175 [facility], [address] [place] [address] Physician Pulmonary Disease 09/06/17 06/22/20 documented as of this encounter
--- OUTSIDE RECORDS SUMMARY | 2024-11-11 15:32 | XMS_ITS | Encounter Summary ---
Author Organization [facility] and [facility] Address [address] [place] [address] Care Team Providers Care Grey Goods Marker Name Role Phone Caitlyn Bowie MD Primary Care Provider +1- [phone] Encounter Details Date Type Department Care Team (Late st Contact Info) Description 01/13/2021 Scanned Document Cancer Center at [address] [address] External, Provider Social History Tobacco Use Types [...] [facility] 240 [facility] Building [address] [place], [place] [phone] Ronald Mills MD [address] [place] [address] [address] [place] [address] documented as of this encounter [...] as of this encounter Care Teams Grey Goods Marker Relationship Specialty Start Date End Date Caitlyn Bowie MD [address] [address] PCP - General Internal Medicine 05/06/21 documented as of this encounter
--- OUTSIDE RECORDS SUMMARY | 2024-11-11 15:32 | XMS_ITS | Encounter Summary ---
Author Organization [facility] and [facility] Address [address] [place] [address] Care Team Providers Care Corporate Traffic Manager Name Role Phone Caitlyn Bowie MD Primary Care Provider +1- [phone] Encounter Details Date Type Department Care Team (Late st Contact Info) Description 03/08/2021 Scanned Document INTERFACE DEFAULT [address] [place] [address] System, Provider Not In Social History Tobacco [...] Cancer Center at [facility] 240 [facility] Building [address] [place], [place] [phone] Ronald Mills MD [address] [place] [address] [address] [place] [address] documented as of this encounter [...] as of this encounter Care Teams Corporate Traffic Manager Relationship Specialty Start Date End Date Caitlyn Bowie MD [facility] [address] [address] PCP - General Internal Medicine 05/06/21 documented as of this encounter
--- OUTSIDE RECORDS SUMMARY | 2024-11-11 15:32 | XMS_ITS | Encounter Summary ---
Author Organization [facility] and [facility] Address [address] [place] [address] Care Team Providers Care Information Systems Specialist Name Role Phone Caitlyn Bowie MD Primary Care Provider +1- [phone] Encounter Details Date Type Department Care Team (Late st Contact Info) Description 09/01/2017 Scanned Document [facility] Health Information Management [address] [place] [address] External, Provider Social History Tobacco Use Types [...] [facility] 240 [facility] Building [address] [place], [place] [phone] Ronald Mills MD [address] [place] [address] [address] [place] [address] documented as of this encounter [...] of this encounter Care Teams Information Systems Specialist Relationship Specialty Start Date End Date Caitlyn Bowie MD [facility] 1 [place] [address] PCP - General Internal Medicine 05/06/21 Henry Kelly MD Pulmonary Department 175 [facility], [address] [place] [address] Physician Pulmonary Disease 09/06/17 06/22/20 documented as of this encounter
--- OUTSIDE RECORDS SUMMARY | 2024-11-11 15:32 | XMS_ITS | Encounter Summary ---
Author Organization [facility] and [facility] Address [address] [place] [address] Care Team Providers Care Nursing Home Assistant Name Role Phone Caitlyn Bowie MD Primary Care Provider +1- [phone] Encounter Details Date Type Department Care Team (Late st Contact Info) Description 06/25/2015 Scanned Document [facility] Health Information Management [address] [place] [address] External, Provider Social History Tobacco Use Types [...] Center, [facility] 240 [facility] Building [address] [place], [place] [phone] Ronald Mills MD 240 [facility] A1 [place] [address] documented as of this encounter Visit Diagnoses Not on filedocumented in this encounter Additional Health Concerns Infection Onset Date Last Indicated Resolved Time COVID-19 03/05/2022 03/05/2022 03/15/2022 7:18 PM EDT documented as of this encounter Care Teams Nursing Home Assistant Relationship Specialty Start Date End Date Caitlyn Bowie MD 3400 [facility] 1 [place] [address] PCP - General Internal Medicine 05/06/21 Henry Kelly MD Pulmonary Department 175 [facility], [address] [place] [address] Physician Pulmonary Disease 09/06/17 06/22/20 documented as of this encounter
--- OUTSIDE RECORDS SUMMARY | 2024-11-11 15:32 | XMS_ITS | Encounter Summary ---
Author Organization [facility] and [facility] Address [address] [place] [address] Care Team Providers Care Sales Account Director Name Role Phone Caitlyn Bowie MD Primary Care Provider +1- [phone] Encounter Details Date Type Department Care Team (Late st Contact Info) Description 04/28/2015 Scanned Document [facility] Health Information Management [address] [place] [address] External, Provider Social History Tobacco Use Types [...] [facility] at [facility] 240 [facility] Building [address] [place], [place] [phone] Ronald Mills MD 240 [facility] [address] [place] [address] documented as of this encounter Visit Diagnoses Not on filedocumented in this encounter Additional Health Concerns Infection Onset Date Last Indicated Resolved Time COVID-19 03/05/2022 03/05/2022 03/15/2022 7:18 PM EDT documented as of this encounter Care Teams Sales Account Director Relationship Specialty Start Date End Date Caitlyn Bowie MD 3400 [facility] 1 [place] [address] PCP - General Internal Medicine 05/06/21 Henry Kelly MD Pulmonary Department 175 [facility], [address] [place] [address] Physician Pulmonary Disease 09/06/17 06/22/20 documented as of this encounter
--- OUTSIDE RECORDS SUMMARY | 2024-11-11 15:32 | XMS_ITS | Encounter Summary ---
Author Organization [facility] and [facility] Address [address] [place] [address] Care Team Providers Care Truck Service Technician Name Role Phone Caitlyn Bowie MD Primary Care Provider +1- [phone] Encounter Details Date Type Department Care Team (Late st Contact Info) Description 02/28/2021 Scanned Document INTERFACE DEFAULT [address] [place] [address] System, Provider Not In Social History Tobacco [...] [facility] at [facility] 240 [facility] [address] [place] [address] Ronald Mills MD [address] [place] [address] [address] [place] [address] documented as of this encounter [...] as of this encounter Care Teams Truck Service Technician Relationship Specialty Start Date End Date Caitlyn Bowie MD [address] [address] PCP - General Internal Medicine 05/06/21 documented as of this encounter
--- OUTSIDE RECORDS SUMMARY | 2024-11-11 15:32 | XMS_ITS | Encounter Summary ---
Author Organization [facility] and [facility] Address [address] [place] [address] Care Team Providers Care Drafter Plumbing Name Role Phone Caitlyn Bowie MD Primary Care Provider +1- [phone] Encounter Details Date Type Department Care Team (Late st Contact Info) Description 02/02/2021 Scanned Document INTERFACE DEFAULT [address] [place] [address] System, Provider Not In Social History Tobacco [...] [facility] 240 [facility] Building [address] [place] [address] Ronald Mills MD [address] [place] [address] [address] [place] [address] documented as of this encounter [...] as of this encounter Care Teams Drafter Plumbing Relationship Specialty Start Date End Date Caitlyn Bowie MD [facility] [address] [address] PCP - General Internal Medicine 05/06/21 documented as of this encounter
--- OUTSIDE RECORDS SUMMARY | 2024-11-11 15:32 | XMS_ITS | Encounter Summary ---
Author Organization [facility] Address [address] [place] [address] Care Team Providers Care Nursery School Teacher Name Role Phone Caitlyn Bowie MD Primary Care Provider +1- [phone] Encounter Details Date Type Department Care Team (Late st Contact Info) Description 03/11/2021 Scanned Document INTERFACE DEFAULT [address] [place] [address] System, Provider Not In Social History Tobacco [...] [facility] 240 [facility] Building [address] [place], [place] [address] Ronald Mills MD [address] [place] [address] [address] [place] [address] documented as of this encounter [...] documented as of this encounter Care Teams Nursery School Teacher Relationship Specialty Start Date End Date Caitlyn Bowie MD [facility] [address] [address] PCP - General Internal Medicine 05/06/21 documented as of this encounter
--- OUTSIDE RECORDS SUMMARY | 2024-11-11 15:32 | XMS_ITS | Encounter Summary ---
Author Organization [facility] and [facility] Address [address] [place] [address] Care Team Providers Care Peoplesoft Business Analyst Name Role Phone Caitlyn Bowie MD Primary Care Provider +1- [phone] Encounter Details Date Type Department Care Team (Late st Contact Info) Description 11/07/2014 Scanned Document [facility] Health Information Management [address] [place] [address] External, Provider Social History Tobacco Use Types [...] at [facility] 240 [facility] Building [address] [place], [place] [id number] Ronald Mills MD 240 [facility] A1 [place] [address] documented as of this encounter Visit Diagnoses Not on filedocumented in this encounter Additional Health Concerns Infection Onset Date Last Indicated Resolved Time COVID-19 03/05/2022 03/05/2022 03/15/2022 7:18 PM EDT documented as of this encounter Care Teams Peoplesoft Business Analyst Relationship Specialty Start Date End Date Caitlyn Bowie MD 3400 [facility] 1 [place] [address] PCP - General Internal Medicine 05/06/21 Henry Kelly MD Pulmonary Department 175 [facility], [address] [place] [address] Physician Pulmonary Disease 09/06/17 06/22/20 documented as of this encounter
--- OUTSIDE RECORDS SUMMARY | 2024-11-11 15:32 | XMS_ITS | Encounter Summary ---
Author Organization [facility] Address [address] [place] [address] Care Team Providers Care Floor Renovator Name Role Phone Caitlyn Bowie MD Primary Care Provider +1- [phone] Encounter Details Date Type Department Care Team (Late st Contact Info) Description 02/25/2021 Scanned Document INTERFACE DEFAULT [address] [place] [address] System, Provider Not In Social History Tobacco [...] [facility] at [facility] 240 [facility] [address] [place] [address] Ronald Mills MD [address] [place] [address] [address] [place] [address] documented as of this encounter [...] as of this encounter Care Teams Floor Renovator Relationship Specialty Start Date End Date Caitlyn Bowie MD [address] [address] PCP - General Internal Medicine 05/06/21 documented as of this encounter
--- OUTSIDE RECORDS SUMMARY | 2024-11-11 15:32 | XMS_ITS | Encounter Summary ---
Author Organization [facility] and [facility] Address [address] [place] [address] Care Team Providers Care Data Management Associate Name Role Phone Caitlyn Bowie MD Primary Care Provider +1- [phone] Encounter Details Date Type Department Care Team (Late st Contact Info) Description 12/21/2020 Scanned Document INTERFACE DEFAULT [address] [place] [address] System, Provider Not In Social History Tobacco [...] [facility] Building [address] [place] [address] Ronald Mills MD [address] [place] [address] [address] [place] [address] documented as of this encounter Visit Diagnoses Not on filedocumented in this encounter Additional Health Concerns Infection Onset Date Last Indicated Resolved Time COVID-19 03/05/2022 03/05/2022 03/15/2022 7:18 PM EDT Assessment Noted Time PHQ-9 Depression Total Score: 2 11/07/19 19 2:06 PM EDT documented as of this encounter Care Teams Data Management Associate Relationship Specialty Start Date End Date Caitlyn Bowei MD [address] [address] PCP - General Internal Medicine 05/06/21 documented as of this encounter
--- OUTSIDE RECORDS SUMMARY | 2024-11-11 15:32 | XMS_ITS | Encounter Summary ---
Author Organization [facility] and [facility] Address [address] [place] [address] Care Team Providers Care Resident Physician Name Role Phone Caitlyn Bowie MD Primary Care Provider +1- [phone] Encounter Details Date Type Department Care Team (Late st Contact Info) Description 02/02/2018 Scanned Document [facility] Health Information Management [address] [place] [address] External, Provider Social History Tobacco Use Types [...] [facility] 240 [facility] Building [address] [place], [place] [address] Ronald Mills MD [address] [place] [address] [address]1 [place] [address] documented as of this [...] as of this encounter Care Teams Resident Physician Relationship Specialty Start Date End Date Caitlyn Bowie MD 3400 [facility] 1 [place] [address] PCP - General Internal Medicine 05/06/21 Henry Kelly MD Pulmonary Department 175 [facility], [address] [place] [address] Physician Pulmonary Disease 09/06/17 06/22/20 documented as of this encounter
--- OUTSIDE RECORDS SUMMARY | 2024-11-11 15:32 | XMS_ITS | Encounter Summary ---
Author Organization [facility] Address [address] [place] [address] Care Team Providers Care Shop Router Name Role Phone Caitlyn Bowie MD Primary Care Provider +1- [phone] Encounter Details Date Type Department Care Team (Late st Contact Info) Description 10/07/2013 Scanned Document [facility] at [address] [address] Suzy Kong MD [address] [place] [address] Social History Tobacco Use Types Packs/Day [...] [facility] Building [address] [place], [place] [phone] Ronald Mills MD 240 [facility] A1 [place] [address] documented as of this encounter Visit Diagnoses Not on filedocumented in this encounter Additional Health Concerns Infection Onset Date Last Indicated Resolved Time COVID-19 03/05/2022 03/05/2022 03/15/2022 7:18 PM EDT documented as of this encounter Care Teams Shop Router Relationship Specialty Start Date End Date Caitlyn Bowie MD 3400 [facility] Max 1 [place] [address] PCP - General Internal Medicine 05/06/21 Henry Kelly MD Pulmonary Department 175 [facility], [address] [place] [address] Physician Pulmonary Disease 09/06/17 06/22/20 documented as of this encounter
--- OUTSIDE RECORDS SUMMARY | 2024-11-11 15:32 | XMS_ITS | Encounter Summary ---
Author Organization [facility] and [facility] Address [address] [place] [address] Care Team Providers Care Movie Writer Name Role Phone Caitlyn Bowie MD Primary Care Provider +1- [phone] Encounter Details Date Type Department Care Team (Late st Contact Info) Description 01/26/2018 Scanned Document [facility] Health Information Management [address] [place] [address] External, Provider Social History Tobacco Use Types [...] [facility] 240 [facility] Building [address] [place], [place] [address] Ronald Mills MD [address] [place] [address] [address] [place] [address] documented as of this encounter [...] documented as of this encounter Care Teams Movie Writer Relationship Specialty Start Date End Date Caitlyn Bowie MD 3400 [facility] 1 [place] [address] PCP - General Internal Medicine 05/06/21 Henry Kelly MD Pulmonary Department 175 [facility], [address] [place] [address] Physician Pulmonary Disease 09/06/17 06/22/20 documented as of this encounter
--- OUTSIDE RECORDS SUMMARY | 2024-11-11 15:32 | XMS_ITS | Encounter Summary ---
Author Organization [facility] and [facility] Address [address] [place] [address] Care Team Providers Care Plasterer Helper Name Role Phone Caitlyn Bowie MD Primary Care Provider +1- [phone] Encounter Details Date Type Department Care Team (Late st Contact Info) Description 01/07/2014 Documentation [facility] [address] [place] [address] Shilpi Ibarra [address] [place] [address] Social History Tobacco Use Types Packs/Day Years [...] [facility] Progress Note This is a 70 [...] – [facility] 240 [facility] Building [address] [place], [place] [address] Ronald Mills MD [address] [place] [address] documented as of this encounter Visit Diagnoses Not on filedocumented in this encounter Additional Health Concerns Infection Onset Date Last Indicated Resolved Time COVID-19 03/05/2022 03/05/2022 03/15/2022 7:18 PM EDT documented as of this encounter Care Teams Plasterer Helper Relationship Specialty Start Date End Date Caitlyn Bowie MD [address] [place] [address] PCP - General Internal Medicine 05/06/21 Henry Kelly MD Pulmonary Department 175 [facility], [address] [place] [address] Physician Pulmonary Disease 09/06/17 06/22/20 documented as of this encounter
--- OUTSIDE RECORDS SUMMARY | 2024-11-11 15:32 | XMS_ITS | Encounter Summary ---
Author Organization [facility] and [facility] Address [address] [place] [address] Care Team Providers Care Workday Consultant Name Role Phone Caitlyn Bowie MD Primary Care Provider +1- [phone] Encounter Details Date Type Department Care Team (Late st Contact Info) Description 02/01/2018 Scanned Document [facility] Health Information Management [address] [place] [address] External, Provider Social History Tobacco Use Types [...] [facility] 240 [facility] Building [address] [place], [place] [address] Ronald Mills MD [address] [place] [address] [address]1 [place] [address] documented as of this encounter [...] documented as of this encounter Care Teams Workday Consultant Relationship Specialty Start Date End Date Caitlyn Bowie MD 3400 [facility] 1 [place] [address] PCP - General Internal Medicine 05/06/21 Henry Kelly MD Pulmonary Department 175 [facility], [address] [place] [address] Physician Pulmonary Disease 09/06/17 06/22/20 documented as of this encounter
--- OUTSIDE RECORDS SUMMARY | 2024-11-11 15:32 | XMS_ITS | Encounter Summary ---
Author Organization [facility] and [facility] Address [address] [place] [address] Care Team Providers Care Teacher Of Gifted Students Name Role Phone Caitlyn Bowie MD Primary Care Provider +1- [phone] Encounter Details Date Type Department Care Team (Late st Contact Info) Description 11/09/2020 Scanned Document INTERFACE DEFAULT [address] [place] [address] System, Provider Not In Social History Tobacco [...] at [facility] 240 [facility] Building [address] [place] [address] Ronald Mills MD [address] [place] [address] [address]1 [place] [address] documented as of this encounter Visit Diagnoses Not on filedocumented in this encounter Additional Health Concerns Infection Onset Date Last Indicated Resolved Time COVID-19 03/05/2022 03/05/2022 03/15/2022 7:18 PM EDT Assessment Noted Time PHQ-9 Depression Total Score: 2 11/07/19 19 2:06 PM EDT documented as of this encounter Care Teams Teacher Of Gifted Students Relationship Specialty Start Date End Date Caitlyn Bowie MD [address] [address] PCP - General Internal Medicine 05/06/21 documented as of this encounter
--- OUTSIDE RECORDS SUMMARY | 2024-11-11 15:32 | XMS_ITS | Encounter Summary ---
Author Organization [facility] and [facility] Address [address] [place] [address] Care Team Providers Care Online Marketing Analyst Name Role Phone Caitlyn Bowie MD Primary Care Provider +1- [phone] Encounter Details Date Type Department Care Team (Late st Contact Info) Description 01/30/2018 Scanned Document [facility] Health Information Management [address] [place] [address] External, Provider Social History Tobacco Use Types [...] at [facility] 240 [facility] Building [address] [place] [address] Ronald Mills MD [address] [place] [address] [address]1 [place] [address] documented as of this encounter [...] as of this encounter Care Teams Online Marketing Analyst Relationship Specialty Start Date End Date Caitlyn Bowie MD [facility] 1 [place] [address] PCP - General Internal Medicine 05/06/21 Henry Kelly MD Pulmonary Department 175 [facility], [address] [place] [address] Physician Pulmonary Disease 09/06/17 06/22/20 documented as of this encounter
--- OUTSIDE RECORDS SUMMARY | 2024-11-11 15:32 | XMS_ITS | Encounter Summary ---
Author Organization [facility] Address [address] [place] [address] Care Team Providers Care Manager Supply Chain Planning Name Role Phone Caitlyn Bowie MD Primary Care Provider +1- [phone] Encounter Details Date Type Department Care Team (Late st Contact Info) Description 03/16/2021 Scanned Document INTERFACE DEFAULT [address] [place] [address] System, Provider Not In Social History [...] [facility] 240 [facility] Building [address] [place] [address] Ronald Mills MD [address] [place] [address] [address]1 [place] [address] documented as of this encounter Visit Diagnoses Not on filedocumented in this encounter Additional Health Concerns Infection Onset Date Last Indicated Resolved Time COVID-19 03/05/2022 03/05/2022 03/15/2022 7:18 PM EDT Assessment Noted Time PHQ-9 Depression Total Score: 2 11/07/19 19 2:06 PM EDT documented as of this encounter Care Teams Manager Supply Chain Planning Relationship Specialty Start Date End Date Caitlyn Bowie MD [address] [address] PCP - General Internal Medicine 05/06/21 documented as of this encounter
--- OUTSIDE RECORDS SUMMARY | 2024-11-11 15:32 | XMS_ITS | Encounter Summary ---
Author Organization [facility] and [facility] Address [address] [place] [address] Care Team Providers Care Durability Technician Name Role Phone Caitlyn Bowie MD Primary Care Provider +1- [phone] Encounter Details Date Type Department Care Team (Late st Contact Info) Description 01/13/2021 Scanned Document Cancer Center at [address] [address] Ronald Mills MD [address] [address] Social History Tobacco Use Types [...] PM EDT Telemedicine Cancer Center at [address] [place] [address] Ronald Mills MD [address] [address] documented as of this encounter [...] documented as of this encounter Care Teams Durability Technician Relationship Specialty Start Date End Date Caitlyn Bowie MD [address] [address] PCP - General Internal Medicine 05/06/21 documented as of this encounter
--- OUTSIDE RECORDS SUMMARY | 2024-11-11 15:32 | XMS_ITS | Encounter Summary ---
Author Organization [facility] and [facility] Address [address] [place] [address] Care Team Providers Care Home Energy Rater Name Role Phone Caitlyn Bowie MD Primary Care Provider +1- [phone] Encounter Details Date Type Department Care Team (Late st Contact Info) Description 02/24/2021 Scanned Document INTERFACE DEFAULT [address] [place] [address] System, Provider Not In Social History Tobacco [...] [facility] Center at [facility] 240 [facility] Building [address] [place] [address] Ronald Mills MD [address] [place] [address] [address] [place] [address] documented as of this encounter [...] as of this encounter Care Teams Home Energy Rater Relationship Specialty Start Date End Date Caitlyn Bowie MD [address] [address] PCP - General Internal Medicine 05/06/21 documented as of this encounter
--- OUTSIDE RECORDS SUMMARY | 2024-11-11 15:32 | XMS_ITS | Encounter Summary ---
Author Organization [facility] and [facility] Address [address] [place] [address] Care Team Providers Care Bariatric Nurse Name Role Phone Caitlyn Bowie MD Primary Care Provider +1- [phone] Encounter Details Date Type Department Care Team (Late st Contact Info) Description 03/01/2021 Scanned Document INTERFACE DEFAULT [address] [place] [address] System, Provider Not In Social History Tobacco [...] at [facility] 240 [facility] Building [address] [place] [address] Ronald Mills MD [address] [place] [address] [address]1 [place] [address] documented as of this encounter Visit Diagnoses Not on filedocumented in this encounter Additional Health Concerns Infection Onset Date Last Indicated Resolved Time COVID-19 03/05/2022 03/05/2022 03/15/2022 7:18 PM EDT Assessment Noted Time PHQ-9 Depression Total Score: 2 11/07/19 19 2:06 PM EDT documented as of this encounter Care Teams Bariatric Nurse Relationship Specialty Start Date End Date Caitlyn Bowie MD [address] [address] PCP - General Internal Medicine 05/06/21 documented as of this encounter
--- OUTSIDE RECORDS SUMMARY | 2024-11-11 15:32 | XMS_ITS | Encounter Summary ---
Author Organization [facility] and [facility] Address [address] [place] [address] Care Team Providers Care Independent Freight Agent Name Role Phone Caitlyn Bowie MD Primary Care Provider +1- [phone] Encounter Details Date Type Department Care Team (Late st Contact Info) Description 11/09/2014 Scanned Document [facility] Health Information Management [address] [place] [address] External, Provider Social History Tobacco Use Types [...] [facility] at [facility] 240 [facility] Building [address] [place], [place] [address] Ronald Mills MD 240 [facility] A1 [place] [address] documented as of this encounter Visit Diagnoses Not on filedocumented in this encounter Additional Health Concerns Infection Onset Date Last Indicated Resolved Time COVID-19 03/05/2022 03/05/2022 03/15/2022 7:18 PM EDT documented as of this encounter Care Teams Independent Freight Agent Relationship Specialty Start Date End Date Caitlyn Bowie MD 3400 [facility] 1 [place] [address] PCP - General Internal Medicine 05/06/21 Henry Kelly MD Pulmonary Department 175 [facility], [address] [place] [address] Physician Pulmonary Disease 09/06/17 06/22/20 documented as of this encounter
--- OUTSIDE RECORDS SUMMARY | 2024-11-11 15:32 | XMS_ITS | Encounter Summary ---
Author Organization [facility] and [facility] Address [address] [place] [address] Care Team Providers Care Supplemental Nurse Name Role Phone Caitlyn Bowie MD Primary Care Provider +1- [phone] Encounter Details Date Type Department Care Team (Late st Contact Info) Description 03/15/2021 Scanned Document INTERFACE DEFAULT [address] [place] [address] System, Provider Not In Social History Tobacco [...] [facility] 240 [facility] Building [address] [place], [place] [address] Ronald Mills MD [address] [place] [address] [address] [place] [address] documented as of this encounter [...] documented as of this encounter Care Teams Supplemental Nurse Relationship Specialty Start Date End Date Caitlyn Bowie MD [facility] [address] [address] PCP - General Internal Medicine 05/06/21 documented as of this encounter
--- OUTSIDE RECORDS SUMMARY | 2024-11-11 15:32 | XMS_ITS | Encounter Summary ---
Author Organization [facility] and [facility] Address [address] [place] [address] Care Team Providers Care Media Coordinator Name Role Phone Caitlyn Bowie MD Primary Care Provider +1- [phone] Encounter Details Date Type Department Care Team (Late st Contact Info) Description 02/11/2021 Scanned Document INTERFACE DEFAULT [address] [place] [address] System, Provider Not In Social History Tobacco [...] at [facility] 240 [facility] Building [address] [place] [address] Ronald Mills MD [address] [place] [address] [address] [place] [address] documented as of this encounter [...] as of this encounter Care Teams Media Coordinator Relationship Specialty Start Date End Date Caitlyn Bowie MD [address] [address] PCP - General Internal Medicine 05/06/21 documented as of this encounter
--- OUTSIDE RECORDS SUMMARY | 2024-11-11 15:32 | XMS_ITS | Encounter Summary ---
Author Organization [facility] and [facility] Address [address] [place] [address] Care Team Providers Care Coal Washer Name Role Phone Caitlyn Bowie MD Primary Care Provider +1- [phone] Encounter Details Date Type Department Care Team (Late st Contact Info) Description 01/26/2018 Scanned Document [facility] Health Information Management [address] [place] [address] External, Provider Social History Tobacco Use Types [...] [facility] 240 [facility] Building [address] [place], [place] [phone] Ronald Mills MD 240 [facility] [address]1 [place] [address] documented as of this encounter Visit Diagnoses Not on filedocumented in this encounter Additional Health Concerns Infection Onset Date Last Indicated Resolved Time COVID-19 03/05/2022 03/05/2022 03/15/2022 7:18 PM EDT documented as of this encounter Care Teams Coal Washer Relationship Specialty Start Date End Date Caitlyn Bowie MD 3400 [facility] 1 [place] [address] PCP - General Internal Medicine 05/06/21 Henry Kelly MD Pulmonary Department 175 [facility], [address] [place] [address] Physician Pulmonary Disease 09/06/17 06/22/20 documented as of this encounter
--- OUTSIDE RECORDS SUMMARY | 2024-11-11 15:32 | XMS_ITS | Encounter Summary ---
Author Organization [facility] and [facility] Address [address] [place] [address] Care Team Providers Care Needle Loom Operator Helper Name Role Phone Caitlyn Bowie MD Primary Care Provider +1- [phone] Encounter Details Date Type Department Care Team (Late st Contact Info) Description 01/28/2018 Scanned Document [facility] Health Information Management [address] [place] [address] External, Provider Social History Tobacco Use Types [...] [facility] 240 [facility] Building [address] [place], [place] [phone] Ronald Mills MD [address] [place] [address] [address] [place] [address] documented as of this encounter [...] documented as of this encounter Care Teams Needle Loom Operator Helper Relationship Specialty Start Date End Date Caitlyn Bowie MD [facility] 1 [place] [address] PCP - General Internal Medicine 05/06/21 Henry Kelly MD Pulmonary Department 175 [facility], [address] [place] [address] Physician Pulmonary Disease 09/06/17 06/22/20 documented as of this encounter
--- OUTSIDE RECORDS SUMMARY | 2024-11-11 15:32 | XMS_ITS | Encounter Summary ---
Author Organization [facility] and [facility] Address [address] [place] [address] Care Team Providers Care Vehicle Window Tinter Name Role Phone Caitlyn Bowie MD Primary Care Provider +1- [phone] Encounter Details Date Type Department Care Team (Late st Contact Info) Description 02/03/2021 Scanned Document INTERFACE DEFAULT [address] [place] [address] System, Provider Not In Social History Tobacco [...] [facility] Building [address] [place], [place] [phone] Ronald Mills MD [address] [place] [address] [address] [place] [address] documented as of this encounter [...] documented as of this encounter Care Teams Vehicle Window Tinter Relationship Specialty Start Date End Date Caitlyn Bowie MD [address] [address] PCP - General Internal Medicine 05/06/21 documented as of this encounter
--- OUTSIDE RECORDS SUMMARY | 2024-11-11 15:32 | XMS_ITS | Encounter Summary ---
Author Organization [facility] and [facility] Address [address] [place] [address] Care Team Providers Care Database Security Expert Name Role Phone Caitlyn Bowie MD Primary Care Provider +1- [phone] Encounter Details Date Type Department Care Team (Late Contact Info) Description 02/03/2021 Scanned Document [facility] Health Information Management [address] [place] [address] External, Provider Social History Tobacco Use Types [...] [facility] 240 [facility] Building [address] [place], [place] [phone] Ronald Mills MD [address] [place] [address] [address] [place] [address] documented as of this encounter [...] documented as of this encounter Care Teams Database Security Expert Relationship Specialty Start Date End Date Caitlyn Bowie MD [address] [address] PCP - General Internal Medicine 05/06/21 documented as of this encounter
--- OUTSIDE RECORDS SUMMARY | 2024-11-11 15:32 | XMS_ITS | Encounter Summary ---
Author Organization [facility] Address [address] [place] [address] Care Team Providers Care Metal Room Dental Technician Name Role Phone Caitlyn Bowie MD Primary Care Provider +1- [phone] Reason for Visit * Reason Comments Other Encounter Details Date Type Department Care Team (Late st Contact Info) Description 01/12/2021 Telephone [facility] at [address] - [address] [phone] Ronald Mills MD [address] [place] [address] Other Social History Tobacco Use Types [...] orders were faxed to [facility] @ [phone]. Patient notified by phone. * Telephone Encounter - Kathleen Nasima - 01/12/2021 8:46 AM EDT Pt called looking to speak with Kirstin RE: lab orders sent to lab [facility] lab Looking to have labs sent there A.S.A.P at some point today She is scheduled with Dr. Mills on January 28 documented in this encounter Plan of Treatment Upcoming Encounters Date Type Department Care Team (Late st Contact Info) Description 04/25/2025 4:00 PM EDT Telemedicine [facility] 240 [facility] Building [address] [place], [place] [phone] Ronald Mills MD 240 [facility] Max [address] [place] [address] documented as of this encounter Visit Diagnoses Not on filedocumented in this encounter Additional Health Concerns Infection Onset Date Last Indicated Resolved Time COVID-19 03/05/2022 03/05/2022 03/15/2022 7:18 PM EDT Assessment Noted Time PHQ-9 Depression Total Score: 2 11/07/19 19 2:06 PM EDT documented as of this encounter Care Teams Metal Room Dental Technician Relationship Specialty Start Date End Date Caitlyn Bowie MD [address] [address] PCP - General Internal Medicine 05/06/21 documented as of this encounter
--- OUTSIDE RECORDS SUMMARY | 2024-11-11 15:32 | XMS_ITS | Encounter Summary ---
Author Organization [facility] and [facility] Address [address] [place] [address] Care Team Providers Care Real Estate Transaction Manager Name Role Phone Caitlyn Bowie MD Primary Care Provider +1- [phone] Encounter Details Date Type Department Care Team (Late st Contact Info) Description 02/02/2018 Scanned Document [facility] Health Information Management [address] [place] [address] External, Provider Social History Tobacco Use Types [...] [facility] Building [address] [place], [place] [phone] Ronald Mills MD 240 [facility] A1 [place] [address] documented as of this encounter Visit Diagnoses Not on filedocumented in this encounter Additional Health Concerns Infection Onset Date Last Indicated Resolved Time COVID-19 03/05/2022 03/05/2022 03/15/2022 7:18 PM EDT documented as of this encounter Care Teams Real Estate Transaction Manager Relationship Specialty Start Date End Date Caitlyn Bowie MD 3400 [facility] 1 [place] [address] PCP - General Internal Medicine 05/06/21 Henry Kelly MD Pulmonary Department 175 [facility], [address] [place] [address] Physician Pulmonary Disease 09/06/17 06/22/20 documented as of this encounter
--- OUTSIDE RECORDS SUMMARY | 2024-11-11 15:32 | XMS_ITS | Encounter Summary ---
Author Organization [facility] and [facility] Address [address] [place] [address] Care Team Providers Care Automobile Lights Assembler Name Role Phone Caitlyn Bowie MD Primary Care Provider +1- [phone] Encounter Details Date Type Department Care Team (Late st Contact Info) Description 11/29/2017 Scanned Document [facility] Health Information Management [address] [place] [address] External, Provider Social History Tobacco Use Types [...] [facility] 240 [facility] Building [address] [place], [place] [phone] Ronald Mills MD [address] [place] [address] [address] [place] [address] documented as of this encounter [...] as of this encounter Care Teams Automobile Lights Assembler Relationship Specialty Start Date End Date Caitlyn Bowie MD 3400 [facility] 1 [place] [address] PCP - General Internal Medicine 05/06/21 Henry Kelly MD Pulmonary Department 175 [facility], [address] [place] [address] Physician Pulmonary Disease 09/06/17 06/22/20 documented as of this encounter
--- OUTSIDE RECORDS SUMMARY | 2024-11-11 15:32 | XMS_ITS | Encounter Summary ---
Author Organization [facility] Address [address] [place] [address] Care Team Providers Care President And Chief Executive Officer Name Role Phone Caitlyn Bowie MD Primary Care Provider +1- [phone] Encounter Details Date Type Department Care Team (Late st Contact Info) Description 07/31/2015 Scanned Document [facility] Health Information Management [address] [place] [address] External, Provider Social History Tobacco Use Types [...] [facility] 240 [facility] Building [address] [place], [place] [phone] Ronald Mills MD 240 [facility] [address] [place] [address] documented as of this encounter Procedures Procedure Name Priority Date/Time Associated Diagnosis Comments NUC MED/PET RESULT SCAN Routine 07/31/2015 documented in this encounter Results * Nuc Med/PET Result Scan (07/31/2015) us Provider External IMG SCAN REPORTS Edited Result - Final [facility] [place], [place], [facility] documented in this encounter Visit Diagnoses Not on filedocumented in this encounter Additional Health Concerns Infection Onset Date Last Indicated Resolved Time COVID-19 03/05/2022 03/05/2022 03/15/2022 7:18 PM EDT documented as of this encounter Care Teams President And Chief Executive Officer Relationship Specialty Start Date End Date Caitlyn Bowie MD 3400 [facility] Max 1 [place] [address] PCP - General Internal Medicine 05/06/21 Henry Kelly MD Pulmonary Department 175 [facility], [address] [place] [address] Physician Pulmonary Disease 09/06/17 06/22/20 documented as of this encounter
--- OUTSIDE RECORDS SUMMARY | 2024-11-11 15:32 | XMS_ITS | Encounter Summary ---
Author Organization [facility] Address [address] [place] [address] Care Team Providers Care Daycare Assistant Name Role Phone Caitlyn Bowie MD Primary Care Provider +1- [phone] Encounter Details Date Type Department Care Team (Late st Contact Info) Description 05/14/2015 Scanned Document [facility] Health Information Management [address] [place] [address] External, Provider Social History Tobacco Use Types [...] [facility] 240 [facility] Building [address] [place], [place] [phone] Ronald Mills MD 240 [facility] A1 [place] [address] documented as of this encounter Visit Diagnoses Not on filedocumented in this encounter Additional Health Concerns Infection Onset Date Last Indicated Resolved Time COVID-19 03/05/2022 03/05/2022 03/15/2022 7:18 PM EDT documented as of this encounter Care Teams Daycare Assistant Relationship Specialty Start Date End Date Caitlyn Bowie MD 3400 [facility] 1 [place] [address] PCP - General Internal Medicine 05/06/21 Henry Kelly MD Pulmonary Department 175 [facility], [address] [place] [address] Physician Pulmonary Disease 09/06/17 06/22/20 documented as of this encounter
--- OUTSIDE RECORDS SUMMARY | 2024-11-11 15:32 | XMS_ITS | Encounter Summary ---
Author Organization [facility] Address [address] [place] [address] Care Team Providers Care Remediation Project Engineer Name Role Phone Caitlyn Bowie MD Primary Care Provider +1- [phone] Encounter Details Date Type Department Care Team (Late st Contact Info) Description 05/01/2015 Scanned Document [facility] Health Information Management [address] [place] [address] External, Provider Social History Tobacco Use Types [...] [facility] Building [address] [place], [place] [address] Ronald Mills MD [address] [facility] Max [address]1 [place] [address] documented as of this encounter [...] as of this encounter Care Teams Remediation Project Engineer Relationship Specialty Start Date End Date Caitlyn Bowie MD 3400 [facility] Max 1 [place] [address] PCP - General Internal Medicine 05/06/21 Henry Kelly MD Pulmonary Department 175 [facility], [address] [place] [address] Physician Pulmonary Disease 09/06/17 06/22/20 documented as of this encounter
--- OUTSIDE RECORDS SUMMARY | 2024-11-11 15:33 | XMS_ITS | Encounter Summary ---
Author Organization [facility] and [facility] Address [address] [place] [address] Care Team Providers Care Process Improvement Consultant Name Role Phone Caitlyn Bowie MD Primary Care Provider +1- [phone] Encounter Details Date Type Department Care Team (Late st Contact Info) Description 06/08/2021 Scanned Document INTERFACE DEFAULT [address] [place] [address] System, Provider Not In Social History Tobacco [...] Telemedicine [facility] at [facility] 240 [facility] Building [address] [place], [place] [phone] Ronald Mills MD [address] [place] [address] [address]1 [place] [address] documented as of this encounter [...] of this encounter Care Teams Process Improvement Consultant Relationship Specialty Start Date End Date Caitlyn Bowie MD [address] [place] [address] PCP - General Internal Medicine 05/06/21 documented as of this encounter
--- OUTSIDE RECORDS SUMMARY | 2024-11-11 15:33 | XMS_ITS | Encounter Summary ---
Author Organization [facility] Address [address] [place] [address] Care Team Providers Care Tester Equipment Name Role Phone Caitlyn Bowie MD Primary Care Provider +1- [phone] Encounter Details Date Type Department Care Team (Late st Contact Info) Description 07/30/2018 Scanned Document [facility] Health Information Management [address] [place] [address] External, Provider Social History Tobacco Use Types [...] [facility] 240 [facility] Building [address] [place], [place] [phone] Ronald Mills MD [address] [place] [address] [address]1 [place] [address] documented as of this encounter [...] as of this encounter Care Teams Tester Equipment Relationship Specialty Start Date End Date Caitlyn Bowie MD [facility] 1 [place] [address] PCP - General Internal Medicine 05/06/21 Henry Kelly MD Pulmonary Department 175 [facility], [address] [place] [address] Physician Pulmonary Disease 09/06/17 06/22/20 documented as of this encounter
--- OUTSIDE RECORDS SUMMARY | 2024-11-11 15:33 | XMS_ITS | Encounter Summary ---
Author Organization [facility] and [facility] Address 20 [place] [address] Care Team Providers Care Apprentice Embalmer Name Role Phone Caitlyn Bowie MD Primary Care Provider +1- [phone] Encounter Details Date Type Department Care Team (Late st Contact Info) Description 06/07/2021 Scanned Document Cancer Center at [address] [address] External, Provider Social History Tobacco Use Types [...] [facility] 240 [facility] Building [address] [place], [place] [phone] Ronald iMlls MD [address] [place] [address] [address]1 [place] [address] documented as of this encounter Visit Diagnoses Not on filedocumented in this encounter Additional Health Concerns Infection Onset Date Last Indicated Resolved Time COVID-19 03/05/2022 03/05/2022 03/15/2022 7:18 PM EDT Assessment Noted Time PHQ-9 Depression Total Score: 2 11/07/19 19 2:06 PM EDT documented as of this encounter Care Teams Apprentice Embalmer Relationship Specialty Start Date End Date Caitlyn Bowie MD [address] [address] PCP - General Internal Medicine 05/06/21 documented as of this encounter
--- OUTSIDE RECORDS SUMMARY | 2024-11-11 15:33 | XMS_ITS | Encounter Summary ---
Author Organization [facility] Address [address] [place] [address] Care Team Providers Care Biodiesel Operations Manager Name Role Phone Caitlyn Bowie MD Primary Care Provider +1- [phone] Encounter Details Date Type Department Care Team (Late st Contact Info) Description 01/27/2018 Scanned Document [facility] Health Information Management [address] [place] [address] External, Provider Social History Tobacco Use Types [...] [facility] 240 [facility] Building [address] [place], [place] [phone] Ronald Mills MD 240 [facility] A1 [place] [address] documented as of this encounter Visit Diagnoses Not on filedocumented in this encounter Additional Health Concerns Infection Onset Date Last Indicated Resolved Time COVID-19 03/05/2022 03/05/2022 03/15/2022 7:18 PM EDT documented as of this encounter Care Teams Biodiesel Operations Manager Relationship Specialty Start Date End Date Caitlyn Bowie MD 3400 [facility] 1 [place] [address] PCP - General Internal Medicine 05/06/21 Henry Kelly MD Pulmonary Department 175 [facility], [address] [place] [address] Physician Pulmonary Disease 09/06/17 06/22/20 documented as of this encounter
--- OUTSIDE RECORDS SUMMARY | 2024-11-11 15:33 | XMS_ITS | Encounter Summary ---
Author Organization [facility] and [facility] Address [address] [place] [address] Care Team Providers Care Glass Washer And Carrier Name Role Phone Caitlyn Bowie MD Primary Care Provider +1- [phone] Encounter Details Date Type Department Care Team (Late st Contact Info) Description 06/26/2018 Scanned Document [facility] Health Information Management [address] [place] [address] External, Provider Social History Tobacco Use Types [...] [facility] 240 [facility] Building [address] [place], [place] [phone] Ronald Mills MD 240 [facility] A1 [place] [address] documented as of this encounter Visit Diagnoses Not on filedocumented in this encounter Additional Health Concerns Infection Onset Date Last Indicated Resolved Time COVID-19 03/05/2022 03/05/2022 03/15/2022 7:18 PM EDT documented as of this encounter Care Teams Glass Washer And Carrier Relationship Specialty Start Date End Date Caitlyn Bowie MD 3400 [facility] 1 [place] [address] PCP - General Internal Medicine 05/06/21 Henry Kelly MD Pulmonary Department 175 [facility], [address] [place] [address] Physician Pulmonary Disease 09/06/17 06/22/20 documented as of this encounter
--- OUTSIDE RECORDS SUMMARY | 2024-11-11 15:33 | XMS_ITS | Encounter Summary ---
Author Organization [facility] and [facility] Address [address] [place] [address] Care Team Providers Care Wire Preparation Machine Tender Name Role Phone Caitlyn Bowie MD Primary Care Provider +1- [phone] Encounter Details Date Type Department Care Team (Late st Contact Info) Description 05/17/2021 Scanned Document Cancer Center at [address] [address] External, Provider Social History Tobacco Use Types [...] at [facility] 240 [facility] Building [address] [place], [place] [phone] Ronald Mills MD [address] [place] [address] [address] [place] [address] documented as of this encounter [...] as of this encounter Care Teams Wire Preparation Machine Tender Relationship Specialty Start Date End Date Caitlyn Bowie MD [address] [address] PCP - General Internal Medicine 05/06/21 documented as of this encounter
--- OUTSIDE RECORDS SUMMARY | 2024-11-11 15:33 | XMS_ITS | Encounter Summary ---
Author Organization [facility] and [facility] Address [address] [place] [address] Care Team Providers Care Industrial Staff Nurse Name Role Phone Caitlyn Bowie MD Primary Care Provider +1- [phone] Encounter Details Date Type Department Care Team (Late st Contact Info) Description 01/27/2018 Scanned Document [facility] Health Information Management [address] [place] [address] External, Provider Social History Tobacco Use Types [...] at [facility] 240 [facility] Building [address] [place] [address] Ronald Mills MD 240 [facility] A1 [place] [address] documented as of this encounter [...] [facility] 1 [place] [address] PCP - General Internal Medicine 05/06/21 Henry Kelly MD Pulmonary Department 175 [facility], [address] [place] [address] Physician Pulmonary Disease 09/06/17 06/22/20 documented as of this encounter
--- OUTSIDE RECORDS SUMMARY | 2024-11-11 15:33 | XMS_ITS | Encounter Summary ---
Author Organization [facility] and [facility] Address [address] [place] [address] Care Team Providers Care Computer Graphic Designer Name Role Phone Caitlyn Bowie MD Primary Care Provider +1- [phone] Encounter Details Date Type Department Care Team (Late st Contact Info) Description 07/26/2018 Scanned Document [facility] Health Information Management [address] [place] [address] External, Provider Social History Tobacco Use Types [...] [facility] 240 [facility] Building [address] [place], [place] [address] Ronald Mills MD 240 [facility] A1 [place] [address] documented as of this encounter [...] as of this encounter Care Teams Computer Graphic Designer Relationship Specialty Start Date End Date Caitlyn Bowie MD 3400 [facility] 1 [place] [address] PCP - General Internal Medicine 05/06/21 Henry Kelly MD Pulmonary Department 175 [facility], [address] [place] [address] Physician Pulmonary Disease 09/06/17 06/22/20 documented as of this encounter
--- OUTSIDE RECORDS SUMMARY | 2024-11-11 15:33 | XMS_ITS | Encounter Summary ---
Author Organization [facility] and [facility] Address [address] [place] [address] Care Team Providers Care Nocturnist Physician Name Role Phone Caitlyn Bowie MD Primary Care Provider +1- [phone] Encounter Details Date Type Department Care Team (Late st Contact Info) Description 04/18/2018 Scanned Document [facility] Health Information Management [address] [place] [address] External, Provider Social History Tobacco Use Types [...] [facility] 240 [facility] Building [address] [place], [place] [phone] Ronald Mills MD [address] [place] [address] [address] [place] [address] documented as of [...] documented as of this encounter Care Teams Nocturnist Physician Relationship Specialty Start Date End Date Caitlyn Bowie MD 3400 [facility] 1 [place] [address] PCP - General Internal Medicine 05/06/21 Henry Kelly MD Pulmonary Department [address] [facility], [address] [place] [address] Physician Pulmonary Disease 09/06/17 06/22/20 documented as of this encounter
--- OUTSIDE RECORDS SUMMARY | 2024-11-11 15:33 | XMS_ITS | Encounter Summary ---
Author Organization [facility] and [facility] Address [address] [place] [address] Care Team Providers Care Gameplay Programmer Name Role Phone Caitlyn Bowie MD Primary Care Provider +1- [phone] Encounter Details Date Type Department Care Team (Late st Contact Info) Description 04/28/2021 Scanned Document INTERFACE DEFAULT [address] [place] [address] System, Provider Not In Social History Tobacco [...] [facility] 240 [facility] Building [address] [place], [place] [phone] Ronald Mills MD [address] [place] [address] [address] [place] [address] documented as of this encounter [...] as of this encounter Care Teams Gameplay Programmer Relationship Specialty Start Date End Date Caitlyn Bowie MD [address] [address] PCP - General Internal Medicine 05/06/21 documented as of this encounter
--- OUTSIDE RECORDS SUMMARY | 2024-11-11 15:33 | XMS_ITS | Encounter Summary ---
Author Organization [facility] and [facility] Address [address] [place] [address] Care Team Providers Care Artist'S Manager Name Role Phone Caitlyn Bowie MD Primary Care Provider +1- [phone] Encounter Details Date Type Department Care Team (Late st Contact Info) Description 12/28/2021 Scanned Document INTERFACE DEFAULT [address] [place] [address] System, Provider Not In Social History Tobacco [...] [facility] 240 [facility] Building [address] [place] [address] Ronald Mills MD [address] [place] [address] [address] [place] [address] documented as of this encounter Visit Diagnoses Not on filedocumented in this encounter Additional Health Concerns Infection Onset Date Last Indicated Resolved Time COVID-19 03/05/2022 03/05/2022 03/15/2022 7:18 PM EDT Assessment Noted Time PHQ-9 Depression Total Score: 2 11/07/19 19 2:06 PM EDT documented as of this encounter Care Teams Artist'S Manager Relationship Specialty Start Date End Date Caitlyn Bowie MD [address] [address] PCP - General Internal Medicine 05/06/21 documented as of this encounter
--- OUTSIDE RECORDS SUMMARY | 2024-11-11 15:33 | XMS_ITS | Encounter Summary ---
Author Organization [facility] and [facility] Address [address] [place] [address] Care Team Providers Care Data Warehousing Specialist Name Role Phone Caitlyn Bowie MD Primary Care Provider +1- [phone] Encounter Details Date Type Department Care Team (Late st Contact Info) Description 06/07/2021 Scanned Document [facility]Oncology Program at [address] [place] [address] Norma Renee MD [address] [place] [address] 2 [place] [address] Social History Tobacco Use Types [...] PM EDT Telemedicine Cancer Center at [address] [place], [place] [address] Ronald Mills MD 240 [facility] A1 [place] [address] documented as of this encounter Visit Diagnoses Not on filedocumented in this encounter Additional Health Concerns Infection Onset Date Last Indicated Resolved Time COVID-19 03/05/2022 03/05/2022 03/15/2022 7:18 PM EDT Assessment Noted Time PHQ-9 Depression Total Score: 2 11/07/19 19 2:06 PM EDT documented as of this encounter Care Teams Data Warehousing Specialist Relationship Specialty Start Date End Date Caitlyn Bowie MD [address] [address] PCP - General Internal Medicine 05/06/21 documented as of this encounter
--- OUTSIDE RECORDS SUMMARY | 2024-11-11 15:33 | XMS_ITS | Encounter Summary ---
Author Organization [facility] and [facility] Address [address] [place] [address] Care Team Providers Care Sfdc Technical Architect Name Role Phone Caitlyn Bowie MD Primary Care Provider +1- [phone] Encounter Details Date Type Department Care Team (Late st Contact Info) Description 01/26/2018 Scanned Document [facility] Health Information Management [address] [place] [address] External, Provider Social History Tobacco Use Types [...] [facility] 240 [facility] Building [address] [place] [address] Ronald Mills MD [address] [place] [address] [address] [place] [address] documented as of this encounter [...] as of this encounter Care Teams Sfdc Technical Architect Relationship Specialty Start Date End Date Caitlyn Bowie MD 3400 [facility] 1 [place] [address] PCP - General Internal Medicine 05/06/21 Henry Kelly MD Pulmonary Department [address] [place] [address], [address] [place] [address] Physician Pulmonary Disease 09/06/17 06/22/20 documented as of this encounter
--- OUTSIDE RECORDS SUMMARY | 2024-11-11 15:33 | XMS_ITS | Encounter Summary ---
Author Organization [facility] and [facility] Address [address] [place] [address] Care Team Providers Care Senior Energy Analyst Name Role Phone Caitlyn Bowie MD Primary Care Provider +1- [phone] Encounter Details Date Type Department Care Team (Late Contact Info) Description 10/29/2021 Scanned Document [facility] Health Information Management [address] [place] [address] External, Provider Social History Tobacco Use Types [...] at [facility] 240 [facility] Building [address] [place], [place] [phone] Ronald Mills MD [address] [place] [address] [address] [place] [address] documented as of this encounter [...] as of this encounter Care Teams Senior Energy Analyst Relationship Specialty Start Date End Date Caitlyn Bowie MD [address] [address] PCP - General Internal Medicine 05/06/21 documented as of this encounter
--- OUTSIDE RECORDS SUMMARY | 2024-11-11 15:33 | XMS_ITS | Encounter Summary ---
Author Organization [facility] and [facility] Address [address] [place] [address] Care Team Providers Care Manager Rail Name Role Phone Caitlyn Bowie MD Primary Care Provider +1- [phone] Encounter Details Date Type Department Care Team (Late st Contact Info) Description 07/28/2018 Scanned Document [facility] Health Information Management [address] [place] [address] External, Provider Social History Tobacco Use Types [...] [facility] 240 [facility] Building [address] [place], [place] [address] Ronald Mills MD 240 [facility] A1 [place] [address] documented [...] as of this encounter Care Teams Manager Rail Relationship Specialty Start Date End Date Caitlyn Bowie MD [facility]0 [facility] 1 [place] [address] PCP - General Internal Medicine 05/06/21 Henry Kelyl MD Pulmonary Department 175 [facility], [address] [place] [address] Physician Pulmonary Disease 09/06/17 06/22/20 documented as of this encounter
--- OUTSIDE RECORDS SUMMARY | 2024-11-11 15:33 | XMS_ITS | Encounter Summary ---
Author Organization [facility] and [facility] Address [address] [place] [address] Care Team Providers Care Fruit Packer Face And Fill Name Role Phone Caitlyn Bowie MD Primary Care Provider +1- [phone] Encounter Details Date Type Department Care Team (Late st Contact Info) Description 08/07/2018 Scanned Document [facility] Health Information Management [address] [place] [address] External, Provider Social History Tobacco Use Types [...] Telemedicine Cancer Center at [facility] 240 [facility] Building [address] [place], [place] [address] Ronald Mills MD [address] [place] [address] [address]1 [place] [address] documented as of this encounter Visit Diagnoses Not on filedocumented in this encounter Additional Health Concerns Infection Onset Date Last Indicated Resolved Time COVID-19 03/05/2022 03/05/2022 03/15/2022 7:18 PM EDT documented as of this encounter Care Teams Fruit Packer Face And Fill Relationship Specialty Start Date End Date Caitlyn Bowie MD 3400 [facility] 1 [place] [address] PCP - General Internal Medicine 05/06/21 Henry Kelly MD Pulmonary Department 175 [facility], [address] [place] [address] Physician Pulmonary Disease 09/06/17 06/22/20 documented as of this encounter
--- OUTSIDE RECORDS SUMMARY | 2024-11-11 15:33 | XMS_ITS | Encounter Summary ---
Author Organization [facility] Address [address] [place] [address] Care Team Providers Care Cvicu Nurse Name Role Phone Caitlyn Bowie MD Primary Care Provider +1- [phone] Encounter Details Date Type Department Care Team (Late st Contact Info) Description 05/05/2021 Scanned Document INTERFACE DEFAULT [address] [place] [address] System, Provider Not In Social History Tobacco [...] [facility] 240 [facility] Building [address] [place] [address] Ronald Mills MD [address] [place] [address] [address]1 [place] [address] documented as of this encounter Visit Diagnoses Not on filedocumented in this encounter Additional Health Concerns Infection Onset Date Last Indicated Resolved Time COVID-19 03/05/2022 03/05/2022 03/15/2022 7:18 PM EDT Assessment Noted Time PHQ-9 Depression Total Score: 2 11/07/19 19 2:06 PM EDT documented as of this encounter Care Teams Cvicu Nurse Relationship Specialty Start Date End Date Caitlyn Bowie MD [address] [address] PCP - General Internal Medicine 05/06/21 documented as of this encounter
--- OUTSIDE RECORDS SUMMARY | 2024-11-11 15:33 | XMS_ITS | Encounter Summary ---
Author Organization [facility] and [facility] Address [address] [place] [address] Care Team Providers Care Research Program Intern Name Role Phone Caitlyn Bowie MD Primary Care Provider +1- [phone] Encounter Details Date Type Department Care Team (Late st Contact Info) Description 03/11/2015 Scanned Document [facility] Health Information Management [address] [place] [address] External, Provider Social History Tobacco Use Types [...] [facility] 240 [facility] Building [address] [place], [place] [address] Ronald Mills MD 240 [facility] Max [address] [place] [address] documented as of this encounter Procedures Procedure Name Priority Date/Time Associated Diagnosis Comments LAB SCAN Routine 03/11/2015 documented in this encounter Results * Lab Scan (03/11/2015) Blood specimen (specimen) us Provider External LAB BLOOD ORDERABLES Edited Re sult - Final [facility] documented in this encounter Visit Diagnoses Not on filedocumented in this encounter Additional Health Concerns Infection Onset Date Last Indicated Resolved Time COVID-19 03/05/2022 03/05/2022 03/15/2022 7:18 PM EDT documented as of this encounter Care Teams Research Program Intern Relationship Specialty Start Date End Date Caitlyn Bowie MD 3400 [facility] 1 [place] [address] PCP - General Internal Medicine 05/06/21 Henry Kelly MD Pulmonary Department 175 [facility], [address] [place] [address] Physician Pulmonary Disease 09/06/17 06/22/20 documented as of this encounter
--- OUTSIDE RECORDS SUMMARY | 2024-11-11 15:33 | XMS_ITS | Encounter Summary ---
Author Organization [facility] and [facility] Address [address] [place] [address] Care Team Providers Care Map Clerk Name Role Phone Caitlyn Bowie MD Primary Care Provider +1- [phone] Encounter Details Date Type Department Care Team (Late st Contact Info) Description 09/23/2021 Scanned Document INTERFACE DEFAULT [address] [place] [address] System, Provider Not In Social History Tobacco [...] [facility] at [facility] 240 [facility] Building [address] [place], [place] [phone] Ronald Mills MD [address] [place] [address] [address] [place] [address] documented as of [...] documented as of this encounter Care Teams Map Clerk Relationship Specialty Start Date End Date Caitlyn Bowie MD [address] [address] PCP - General Internal Medicine 05/06/21 documented as of this encounter
--- OUTSIDE RECORDS SUMMARY | 2024-11-11 15:33 | XMS_ITS | Encounter Summary ---
Author Organization [facility] and [facility] Address [address] [place] [address] Care Team Providers Care Investment Professional Name Role Phone Caitlyn Bowie MD Primary Care Provider +1- [phone] Reason for Visit * Reason Comments Triage Encounter Details Date Type Department Care Team (Late st Contact Info) Description 10/18/2021 Telephone [facility] at [address] - [address] [phone] Ronald Mills MD [address] [place] [address] Triage Social History Tobacco Use Types [...] [facility] 240 [facility] Building [address] [place], [place] [address] Ronald Mills MD 240 [facility] Max [address] [place] [address] documented as of this encounter Visit Diagnoses Not on filedocumented in this encounter Additional Health Concerns Infection Onset Date Last Indicated Resolved Time COVID-19 03/05/2022 03/05/2022 03/15/2022 7:18 PM EDT Assessment Noted Time PHQ-9 Depression Total Score: 2 11/07/19 19 2:06 PM EDT documented as of this encounter Care Teams Investment Professional Relationship Specialty Start Date End Date Caitlyn Bowie MD [address] [address] PCP - General Internal Medicine 05/06/21 documented as of this encounter
--- OUTSIDE RECORDS SUMMARY | 2024-11-11 15:33 | XMS_ITS | Encounter Summary ---
Author Organization [facility] and [facility] Address [address] [place] [address] Care Team Providers Care Deposition Reporter Name Role Phone Caitlyn Bowie MD Primary Care Provider +1- [phone] Encounter Details Date Type Department Care Team (Late st Contact Info) Description 04/16/2018 Scanned Document [facility] Health Information Management [address] [place] [address] External, Provider Social History Tobacco Use Types [...] at [facility] 240 [facility] Building [address] [place], [place] [phone] Ronald Mills MD 240 [facility] A1 [place] [address] documented as of this encounter Visit Diagnoses Not on filedocumented in this encounter Additional Health Concerns Infection Onset Date Last Indicated Resolved Time COVID-19 03/05/2022 03/05/2022 03/15/2022 7:18 PM EDT documented as of this encounter Care Teams Deposition Reporter Relationship Specialty Start Date End Date Caitlyn Bowie MD 3400 [facility] 1 [place] [address] PCP - General Internal Medicine 05/06/21 Henry Kelly MD Pulmonary Department 175 [facility], [address] [place] [address] Physician Pulmonary Disease 09/06/17 06/22/20 documented as of this encounter
--- OUTSIDE RECORDS SUMMARY | 2024-11-11 15:33 | XMS_ITS | Clinical Summary ---
Author Organization [facility] Address [address] [place] [address] Care Team Providers Care Warehouse Associate Name Role Phone Caitlyn Bowie MD Primary Care Provider +1- [phone] Allergies Active Allergy Reactions Criticality Noted Date [...] Breath High 05/09/2008 Bronchospasm or Wheezing Ipratropium [place] Unknown/Patient and Family Unable to Define Medium [...] 1 capsule by mouth daily. Active B Kkuahkf-G-Ombes Acid (STRESS 500 B-COMPLEX PO) Take 1 [...] 75+ series) 2018 COVID-19 Vaccine (3 - season) 2024 09/03/2020, 08/06/2020 Influenza Vaccine 02/07/2025 05/13/2022, , 05/15/2021, Additional history exists Hepatitis B Vaccines Aged Out No long er eligible based on patient's age to complete this topic Insurance MEDICARE PART A & B MEDICARE PART A & B [facility] Care Teams Warehouse Associate Relationship Specialty Start Date End Date Caitlyn Bowie MD 3400 [place] [address] PCP - General Internal Medicine 03/20/23
--- OUTSIDE RECORDS SUMMARY | 2024-11-11 15:33 | XMS_ITS | Encounter Summary ---
Author Organization [facility] and [facility] Address [address] [place] [address] Care Team Providers Care Seating Upholsterer Name Role Phone Caitlyn Bowie MD Primary Care Provider +1- [phone] Encounter Details Date Type Department Care Team (Late st Contact Info) Description 03/26/2015 Scanned Document Cardiovascular Medicine at [address] [place] [address] Norma Renee MD [address] [place] [phone] Social History Tobacco Use Types Packs/Day Years [...] PM EDT Telemedicine Cancer Center at [address] [place], [place] [phone] Ronald Mills MD [address] [place] [address] [address]1 [place] [address] documented as of this encounter Visit Diagnoses Not on filedocumented in this encounter Additional Health Concerns Infection Onset Date Last Indicated Resolved Time COVID-19 03/05/2022 03/05/2022 03/15/2022 7:18 PM EDT documented as of this encounter Care Teams Seating Upholsterer Relationship Specialty Start Date End Date Caitlyn Bowie MD 3400 [facility] 1 [place] [address] PCP - General Internal Medicine 05/06/21 Henry Kelly MD Pulmonary Department 175 [facility], [address] [place] [address] Physician Pulmonary Disease 09/06/17 06/22/20 documented as of this encounter
--- OUTSIDE RECORDS SUMMARY | 2024-11-11 15:33 | XMS_ITS | Encounter Summary ---
Author Organization [facility] and [facility] Address [address] [place] [address] Care Team Providers Care Director Outpatient Services Name Role Phone Caitlyn Bowie MD Primary Care Provider +1- [phone] Encounter Details Date Type Department Care Team (Late st Contact Info) Description 01/28/2018 Scanned Document [facility] Health Information Management [address] [place] [address] External, Provider Social History Tobacco Use Types [...] [facility] 240 [facility] Building [address] [place], [place] [phone] Ronald Mills MD 240 [facility] A1 [place] [address] documented as of this encounter Visit Diagnoses Not on filedocumented in this encounter Additional Health Concerns Infection Onset Date Last Indicated Resolved Time COVID-19 03/05/2022 03/05/2022 03/15/2022 7:18 PM EDT documented as of this encounter Care Teams Director Outpatient Services Relationship Specialty Start Date End Date Caitlyn Bowie MD 3400 [facility] 1 [place] [address] PCP - General Internal Medicine 05/06/21 Henry Kelly MD Pulmonary Department 175 [facility], [address] [place] [address] Physician Pulmonary Disease 09/06/17 06/22/20 documented as of this encounter
--- OUTSIDE RECORDS SUMMARY | 2024-11-11 15:33 | XMS_ITS | Encounter Summary ---
Author Organization [facility] and [facility] Address [address] [place] [address] Care Team Providers Care Quantitative Consultant Name Role Phone Caitlyn Bowie MD Primary Care Provider +1- [phone] Encounter Details Date Type Department Care Team (Late st Contact Info) Description 10/15/2018 Scanned Document [facility] Health Information Management [address] [place] [address] External, Provider Social History Tobacco Use Types [...] Center at [facility] 240 [facility] Building [address] [place], [place] [phone] Ronald Mills MD [address] [place] [address] [address]1 [place] [address] documented as of this encounter Visit Diagnoses Not on filedocumented in this encounter Additional Health Concerns Infection Onset Date Last Indicated Resolved Time COVID-19 03/05/2022 03/05/2022 03/15/2022 7:18 PM EDT documented as of this encounter Care Teams Quantitative Consultant Relationship Specialty Start Date End Date Caitlyn Bowie MD 34[address] [facility] 1 [place] [address] PCP - General Internal Medicine 05/06/21 Henry Kelly MD Pulmonary Department 175 [facility], [address] [place] [address] Physician Pulmonary Disease 09/06/17 06/22/20 documented as of this encounter
--- OUTSIDE RECORDS SUMMARY | 2024-11-11 15:33 | XMS_ITS | Encounter Summary ---
Author Organization [facility] [place] [facility] and [facility] Address [address] [place] [address] Care Team Providers Care Solar Installation Manager Name Role Phone Caitlyn Bowie MD Primary Care Provider +1- [phone] Encounter Details Date Type Department Care Team (Late st Contact Info) Description 05/27/2021 Telephone [facility] at [address] [address] Ronald Mills MD [address] [place] [address] Social History Tobacco Use Types Packs/Day [...] [facility] 240 [facility] [address] [place], [place] [address] Ronald Mills MD 240 [facility] Max [address]1 [place] [address] documented as of this encounter Visit Diagnoses Not on filedocumented in this encounter Additional Health Concerns Infection Onset Date Last Indicated Resolved Time COVID-19 03/05/2022 03/05/2022 03/15/2022 7:18 PM EDT Assessment Noted Time PHQ-9 Depression Total Score: 2 11/07/19 19 2:06 PM EDT documented as of this encounter Care Teams Solar Installation Manager Relationship Specialty Start Date End Date Caitlyn Bowie MD [address] [address] PCP - General Internal Medicine 05/06/21 documented as of this encounter
--- OUTSIDE RECORDS SUMMARY | 2024-11-11 15:33 | XMS_ITS | Encounter Summary ---
Author Organization [facility] and [facility] Address [address] [place] [address] Care Team Providers Care Metal Furniture Repairer Name Role Phone Caitlyn Bowie MD Primary Care Provider +1- [phone] Encounter Details Date Type Department Care Team (Late st Contact Info) Description 01/26/[address] [facility] Health Information Management [address] [place] [address] External, Provider Social History Tobacco Use Types [...] [facility] Center at [facility] 240 [facility] Building [address] [place], [place] [phone] Ronald Mills MD 240 [facility] A1 [place] [address] documented as of this encounter [...] of this encounter Care Teams Metal Furniture Repairer Relationship Specialty Start Date End Date Caitlyn Bowie MD 3400 [facility] 1 [place] [address] PCP - General Internal Medicine 05/06/21 Henry Kelly MD Pulmonary Department 175 [facility], [address] [place] [address] Physician Pulmonary Disease 09/06/17 06/22/20 documented as of this encounter
--- OUTSIDE RECORDS SUMMARY | 2024-11-11 15:33 | XMS_ITS | Encounter Summary ---
Author Organization [facility] and [facility] Address [address] [place] [address] Care Team Providers Care Walnut Dehydrator Operator Name Role Phone Caitlyn Bowie MD Primary Care Provider +1- [phone] Encounter Details Date Type Department Care Team (Late st Contact Info) Description 04/24/2021 Scanned Document INTERFACE DEFAULT [address] [place] [address] System, Provider Not In Social History Tobacco [...] [facility] Building [address] [place], [place] [phone] Ronald Mills MD [address] [place] [address] [address] [place] [address] documented as of this encounter [...] documented as of this encounter Care Teams Walnut Dehydrator Operator Relationship Specialty Start Date End Date Caitlyn Bowie MD [address] [address] PCP - General Internal Medicine 05/06/21 documented as of this encounter
--- OUTSIDE RECORDS SUMMARY | 2024-11-11 15:33 | XMS_ITS | Encounter Summary ---
Author Organization [facility] and [facility] Address [address] [place] [address] Care Team Providers Care Extension Service Agent Name Role Phone Caitlyn Bowie MD Primary Care Provider +1- [phone] Encounter Details Date Type Department Care Team (Late st Contact Info) Description 04/27/2021 Scanned Document INTERFACE DEFAULT [address] [place] [address] System, Provider Not In Social History Tobacco [...] Center at [facility] 240 [facility] Building [address] [place], [place] [phone] Ronald Mills MD [address] [place] [address] [address] [place] [address] documented as of this encounter [...] documented as of this encounter Care Teams Extension Service Agent Relationship Specialty Start Date End Date Caitlyn Bowie MD [address] [address] PCP - General Internal Medicine 05/06/21 documented as of this encounter
--- OUTSIDE RECORDS SUMMARY | 2024-11-11 15:33 | XMS_ITS | Encounter Summary ---
Author Organization [facility] and [facility] Address [address] [place] [address] Care Team Providers Care Carpenter'S Helper Name Role Phone Caitlyn Bowie MD Primary Care Provider +1- [phone] Encounter Details Date Type Department Care Team (Late st Contact Info) Description 04/26/2021 Scanned Document INTERFACE DEFAULT [address] [place] [address] System, Provider Not In Social History [...] [facility] 240 [facility] Building [address] [place], [place] [phone] Ronald Mills MD [address] [place] [address] [address] [place] [address] documented as of this encounter [...] documented as of this encounter Care Teams Carpenter'S Helper Relationship Specialty Start Date End Date Caitlyn Bowie MD [address] [address] PCP - General Internal Medicine 05/06/21 documented as of this encounter
--- OUTSIDE RECORDS SUMMARY | 2024-11-11 15:33 | XMS_ITS | Encounter Summary ---
Author Organization [facility] and [facility] Address [address] [place] [address] Care Team Providers Care Center Director Lead Teacher Name Role Phone Caitlyn Bowie MD Primary Care Provider +1- [phone] Encounter Details Date Type Department Care Team (Late st Contact Info) Description 02/19/2015 Scanned Document [facility] Health Information Management [address] [place] [address] External, Provider Social History Tobacco Use Types [...] [facility] Building [address] [place], [place] [phone] Ronald Mills MD 240 [facility] [address] [place] [address] documented as of this encounter Procedures Procedure Name Priority Date/Time Associated Diagnosis Comments LAB SCAN Routine 02/19/2015 documented in this encounter Results * Lab Scan (02/19/2015) Blood specimen (specimen) us Provider External LAB BLOOD ORDERABLES Final Res ult [facility] documented in this encounter Visit Diagnoses Not on filedocumented in this encounter Additional Health Concerns Infection Onset Date Last Indicated Resolved Time COVID-19 03/05/2022 03/05/2022 03/15/2022 7:18 PM EDT documented as of this encounter Care Teams Center Director Lead Teacher Relationship Specialty Start Date End Date Caitlyn Bowie MD 3400 [facility] 1 [place] [address] PCP - General Internal Medicine 05/06/21 Henry Kelly MD Pulmonary Department 175 [facility], [address] [place] [address] Physician Pulmonary Disease 09/06/17 06/22/20 documented as of this encounter
--- OUTSIDE RECORDS SUMMARY | 2024-11-11 15:33 | XMS_ITS | Encounter Summary ---
Author Organization [facility] and [facility] Address 20 [place] [address] Care Team Providers Care Underwriting Intern Name Role Phone Caitlyn Bowie MD Primary Care Provider +1- [phone] Encounter Details Date Type Department Care Team (Late st Contact Info) Description 11/19/2021 Scanned Document Cardiovascular Medicine at [address] [place] [address] Norma Renee MD [address] [place] [address] Social History Tobacco Use Types Packs/Day [...] 4:00 PM EDT Telemedicine Cancer Center at [address] [place] [address] Ronald Mills MD 240 [facility] A1 [place] [address] documented as of this encounter Visit Diagnoses Not on filedocumented in this encounter Additional Health Concerns Infection Onset Date Last Indicated Resolved Time COVID-19 03/05/2022 03/05/2022 03/15/2022 7:18 PM EDT Assessment Noted Time PHQ-9 Depression Total Score: 2 11/07/19 19 2:06 PM EDT documented as of this encounter Care Teams Underwriting Intern Relationship Specialty Start Date End Date Caitlyn Bowie MD [address] [address] PCP - General Internal Medicine 05/06/21 documented as of this encounter
--- OUTSIDE RECORDS SUMMARY | 2024-11-11 15:33 | XMS_ITS | Encounter Summary ---
Author Organization [facility] and [facility] Address [address] [place] [address] Care Team Providers Care Hot Dimpling Machine Operator Name Role Phone Caitlyn Bowie MD Primary Care Provider +1- [phone] Encounter Details Date Type Department Care Team (Late st Contact Info) Description 04/29/2021 Scanned Document INTERFACE DEFAULT [address] [place] [address] System, Provider Not In Social History Tobacco [...] [facility] 240 [facility] Building [address] [place] [address] Ronald Mills MD [address] [place] [address] [address] [place] [address] documented as of this encounter [...] as of this encounter Care Teams Hot Dimpling Machine Operator Relationship Specialty Start Date End Date Caitlyn Bowie MD [address] [address] PCP - General Internal Medicine 05/06/21 documented as of this encounter
--- OUTSIDE RECORDS SUMMARY | 2024-11-11 15:33 | XMS_ITS | Encounter Summary ---
Author Organization [facility] and [facility] Address [address] [place] [address] Care Team Providers Care Mophead Trimmer And Wrapper Name Role Phone Caitlyn Bowie MD Primary Care Provider +1- [phone] Encounter Details Date Type Department Care Team (Late st Contact Info) Description 01/26/2018 Scanned Document [facility] Health Information Management [address] [place] [address] External, Provider Social History Tobacco Use Types [...] [facility] Building [address] [place] [address] Ronald Mills MD 240 [facility] A1 [place] [address] documented as of this encounter [...] documented as of this encounter Care Teams Mophead Trimmer And Wrapper Relationship Specialty Start Date End Date Caitlyn Bowie MD 3400 [facility] 1 [place] [address] PCP - General Internal Medicine 05/06/21 Henry Kelly MD Pulmonary Department 175 [facility], [address] [place] [address] Physician Pulmonary Disease 09/06/17 06/22/20 documented as of this encounter
--- OUTSIDE RECORDS SUMMARY | 2024-11-11 15:33 | XMS_ITS | Encounter Summary ---
Author Organization [facility] and [facility] Address [address] [place] [address] Care Team Providers Care Trust Evaluation Supervisor Name Role Phone Caitlyn Bowie MD Primary Care Provider +1- [phone] Encounter Details Date Type Department Care Team (Late st Contact Info) Description 11/18/2021 Scanned Document INTERFACE DEFAULT [address] [place] [address] System, Provider Not In Social History Tobacco [...] Center at [facility] 240 [facility] Building [address] [place] [address] Ronald Mills MD [address] [place] [address] [address]1 [place] [address] documented as of this encounter Visit Diagnoses Not on filedocumented in this encounter Additional Health Concerns Infection Onset Date Last Indicated Resolved Time COVID-19 03/05/2022 03/05/2022 03/15/2022 7:18 PM EDT Assessment Noted Time PHQ-9 Depression Total Score: 2 11/07/19 19 2:06 PM EDT documented as of this encounter Care Teams Trust Evaluation Supervisor Relationship Specialty Start Date End Date Caitlyn Bowie MD [address] [address] PCP - General Internal Medicine 05/06/21 documented as of this encounter
--- OUTSIDE RECORDS SUMMARY | 2024-11-11 15:33 | XMS_ITS | Encounter Summary ---
Author Organization [facility] and [facility] Address [address] [place] [address] Care Team Providers Care Fuel Testing Technician Name Role Phone Caitlyn Bowie MD Primary Care Provider +1- [phone] Encounter Details Date Type Department Care Team (Late st Contact Info) Description 06/07/2021 Scanned Document Onco-Oncology Program at [address] [place] [address] Norma Renee MD [address] [place] [address] 2 [place] [address] Social History Tobacco Use [...] 4:00 PM EDT Telemedicine Cancer Center at [address] [place], [place] [phone] Ronald Mills MD 240 [facility] A1 [place] [address] documented as of this encounter Visit Diagnoses Not on filedocumented in this encounter Additional Health Concerns Infection Onset Date Last Indicated Resolved Time COVID-19 03/05/2022 03/05/2022 03/15/2022 7:18 PM EDT Assessment Noted Time PHQ-9 Depression Total Score: 2 11/07/19 19 2:06 PM EDT documented as of this encounter Care Teams Fuel Testing Technician Relationship Specialty Start Date End Date Caitlyn Bowie MD [address] [address] PCP - General Internal Medicine 05/06/21 documented as of this encounter
--- OUTSIDE RECORDS SUMMARY | 2024-11-11 15:33 | XMS_ITS | Encounter Summary ---
Author Organization [facility] and [facility] Address [address] [place] [address] Care Team Providers Care Medicine Man Name Role Phone Caitlyn Bowie MD Primary Care Provider +1- [phone] Encounter Details Date Type Department Care Team (Late st Contact Info) Description 03/13/2015 Scanned Document [facility] Health Information Management [address] [place] [address] External, Provider Social History Tobacco Use Types [...] [facility] 240 [facility] Building [address] [place], [place] [address] Ronald Mills MD 240 [facility] Max [address] [place] [address] documented as of this encounter Procedures Procedure Name Priority Date/Time Associated Diagnosis Comments LAB SCAN Routine 02/16/2015 LAB SCAN Routine 02/16/2015 documented in this encounter Results * Lab Scan (02/16/2015) Blood specimen (specimen) us Provider External LAB BLOOD ORDERABLES Final Res ult Performing Organization Address [facility]/ZIP Co de Phone Number [facility] * Lab Scan (02/16/2015) Blood specimen (specimen) Provider External LAB BLOOD ORDERABLES Final Res ult Performing Organization Address [facility] Co de Phone Number [facility] documented in this encounter Visit Diagnoses Not on filedocumented in this encounter Additional Health Concerns Infection Onset Date Last Indicated Resolved Time COVID-19 03/05/2022 03/05/2022 03/15/2022 7:18 PM EDT documented as of this encounter Care Teams Medicine Man Relationship Specialty Start Date End Date Caitlyn Bowie MD 3400 [facility] 1 [place] [address] PCP - General Internal Medicine 05/06/21 Henry Kelly MD Pulmonary Department 175 [facility], [address] [place] [address] Physician Pulmonary Disease 09/06/17 06/22/20 documented as of this encounter
--- OUTSIDE RECORDS SUMMARY | 2024-11-11 15:33 | XMS_ITS | Encounter Summary ---
Author Organization [facility] and [facility] Address [address] [place] [address] Care Team Providers Care Ranch Rider Name Role Phone Caitlyn Bowie MD Primary Care Provider +1- [phone] Reason for Visit * Reason Comments FYI Encounter Details Date Type Department Care Team (Late st Contact Info) Description 05/24/2021 Telephone [facility] at [facility] at [address] [place] [address] 2nd [place], [place] [phone] Solo Henry MD [address] [place] [phone] FYI Social History Tobacco Use Types [...] [facility] 240 [facility] Building [address] [place] [address] Ronald Mills MD 240 [facility] [address] [place] [address] documented as of this encounter Visit Diagnoses Not on filedocumented in this encounter Additional Health Concerns Infection Onset Date Last Indicated Resolved Time COVID-19 03/05/2022 03/05/2022 03/15/2022 7:18 PM EDT Assessment Noted Time PHQ-9 Depression Total Score: 2 11/07/19 19 2:06 PM EDT documented as of this encounter Care Teams Ranch Rider Relationship Specialty Start Date End Date Caitlyn Bowie MD 3400 [facility] 1 [place] [address] PCP - General Internal Medicine 05/06/21 documented as of this encounter
--- OUTSIDE RECORDS SUMMARY | 2024-11-11 15:33 | XMS_ITS | Encounter Summary ---
Author Organization [facility] and [facility] Address [address] [place] [address] Care Team Providers Care Slab Depiler Operator Name Role Phone Caitlyn Bowie MD Primary Care Provider +1- [phone] Encounter Details Date Type Department Care Team (Late st Contact Info) Description 10/08/2021 Scanned Document INTERFACE DEFAULT [address] [place] [address] System, Provider Not In Social History Tobacco [...] [facility] 240 [facility] Building [address] [place], [place] [address] Ronald Mills MD [address] [place] [address] [address] [place] [address] documented as of this encounter [...] documented as of this encounter Care Teams Slab Depiler Operator Relationship Specialty Start Date End Date Caitlyn Bowie MD [address] [address] PCP - General Internal Medicine 05/06/21 documented as of this encounter
--- OUTSIDE RECORDS SUMMARY | 2024-11-11 15:33 | XMS_ITS | Encounter Summary ---
Author Organization [facility] and [facility] Address [address] [place] [address] Care Team Providers Care Exceptional Student Education Teacher Name Role Phone Caitlyn Bowie MD Primary Care Provider +1- [phone] Encounter Details Date Type Department Care Team (Late st Contact Info) Description 03/14/2018 Scanned Document [facility] Health Information Management [address] [place] [address] External, Provider Social History Tobacco Use Types [...] [facility] 240 [facility] Building [address] [place], [place] [phone] Ronald Mills MD [address] [place] [address] [address]1 [place] [address] documented as of this encounter [...] documented as of this encounter Care Teams Exceptional Student Education Teacher Relationship Specialty Start Date End Date Caitlyn Bowie MD 3400 [facility] 1 [place] [address] PCP - General Internal Medicine 05/06/21 Henry Kelly MD Pulmonary Department 175 [facility], [address] [place] [address] Physician Pulmonary Disease 09/06/17 06/22/20 documented as of this encounter
--- OUTSIDE RECORDS SUMMARY | 2024-11-11 15:33 | XMS_ITS | Encounter Summary ---
Author Organization [facility] and [facility] Address [address] [place] [address] Care Team Providers Care Business Dean Name Role Phone Caitlyn Bowie MD Primary Care Provider +1- [phone] Encounter Details Date Type Department Care Team (Late st Contact Info) Description 04/25/2021 Scanned Document INTERFACE DEFAULT [address] [place] [address] System, Provider Not In Social History Tobacco [...] [facility] Center at [facility] 240 [facility] Building [address] [place], [place] [address] Ronald Mills MD [address] [place] [address] [address] [place] [address] documented as of this encounter [...] as of this encounter Care Teams Business Dean Relationship Specialty Start Date End Date Caitlyn Bowie MD [address] [address] PCP - General Internal Medicine 05/06/21 documented as of this encounter
--- OUTSIDE RECORDS SUMMARY | 2024-11-11 15:33 | XMS_ITS | Encounter Summary ---
Author Organization [facility] and [facility] Address [address] [place] [address] Care Team Providers Care Program Control Analyst Name Role Phone Caitlyn Bowie MD Primary Care Provider +1- [phone] Reason for Visit * Reason Comments Advice Only Encounter Details Date Type Department Care Team ([facility] [facility] st Contact Info) Description 06/01/2021 Telephone [facility] H[facility]ology [facility] at [address] [phone] Ronald Mills MD [address] [place] [address] Advice Only Social History Tobacco Use [...] added that she's called before and sent [employer] messages but hasn't received a reply,[phone]. documented in this encounter Plan of Treatment Upcoming Encounters Date Type Department Care Team (Late st Contact Info) Description 04/25/2025 4:00 PM EDT Telemedicine [facility] at [facility] 240 [facility] Building [address] [place], [place] [address] Ronald Mills MD 240 [facility] Max [address]1 [place] [address] documented as of this encounter Visit Diagnoses Not on filedocumented in this encounter Additional Health Concerns Infection Onset Date Last Indicated Resolved Time COVID-19 03/05/2022 03/05/2022 03/15/2022 7:18 PM EDT Assessment Noted Time PHQ-9 Depression Total Score: 2 11/07/19 19 2:06 PM EDT documented as of this encounter Care Teams Program Control Analyst Relationship Specialty Start Date End Date Ciatlyn Bowie MD 3400 [facility] 1 [place] [address] PCP - General Internal Medicine 05/06/21 documented as of this encounter
--- OUTSIDE RECORDS SUMMARY | 2024-11-11 15:33 | XMS_ITS | Encounter Summary ---
Author Organization [facility] Address [address] [place] [address] Care Team Providers Care Video Coordinator Name Role Phone Caitlyn Bowie MD Primary Care Provider +1- [phone] Encounter Details Date Type Department Care Team (Late Contact Info) Description 11/18/2021 Scanned Document [facility] Health Information Management [address] [place] [address] External, Provider Social History Tobacco Use Types [...] [facility] 240 [facility] Building [address] [place], [place] [address] Ronald Mills MD [address] [place] [address] [address]1 [place] [address] documented as of this encounter Visit Diagnoses Not on filedocumented in this encounter Additional Health Concerns Infection Onset Date Last Indicated Resolved Time COVID-19 03/05/2022 03/05/2022 03/15/2022 7:18 PM EDT Assessment Noted Time PHQ-9 Depression Total Score: 2 11/07/19 19 2:06 PM EDT documented as of this encounter Care Teams Video Coordinator Relationship Specialty Start Date End Date Caitlyn Bowie MD [address] [address] PCP - General Internal Medicine 05/06/21 documented as of this encounter
--- OUTSIDE RECORDS SUMMARY | 2024-11-11 15:33 | XMS_ITS | Encounter Summary ---
Author Organization [facility] and [facility] Address 20 [place] [address] Care Team Providers Care Magazine Feeder Name Role Phone Caitlyn Bowie MD Primary Care Provider +1- [phone] Encounter Details Date Type Department Care Team (Late st Contact Info) Description 04/03/2018 Scanned Document [facility] [address] [place] [phone] Provider, historical . Social History Tobacco Use [...] [facility] at [facility] 240 [facility] Building [address] [place], [place] [address] Ronald Mills MD [address] [place] [address] [address] [place] [address] documented as of this encounter [...] documented as of this encounter Care Teams Magazine Feeder Relationship Specialty Start Date End Date Caitlyn Bowie MD 3400 [facility] 1 [place] [address] PCP - General Internal Medicine 05/06/21 Henry Kelly MD Pulmonary Department 175 [facility], [address] [place] [address] Physician Pulmonary Disease 09/06/17 06/22/20 documented as of this encounter
--- OUTSIDE RECORDS SUMMARY | 2024-11-11 15:33 | XMS_ITS | Encounter Summary ---
Author Organization [facility] and [facility] Address [address] [place] [address] Care Team Providers Care Hydro Station Operator Name Role Phone Caitlyn Bowie MD Primary Care Provider +1- [phone] Encounter Details Date Type Department Care Team (Late st Contact Info) Description 12/04/2014 Scanned Document [facility] Health Information Management [address] [place] [address] External, Provider Social History Tobacco Use Types [...] [facility] 240 [facility] Building [address] [place], [place] [phone] Ronald Mills MD 240 [facility] Max [address]1 [place] [address] documented as of this encounter Procedures Procedure Name Priority Date/Time Associated Diagnosis Comments LAB SCAN Routine 12/04/2014 documented in this encounter Results * Lab Scan (12/04/2014) Blood specimen (specimen) us Provider External LAB BLOOD ORDERABLES Final Res ult [facility] documented in this encounter Visit Diagnoses Not on filedocumented in this encounter Additional Health Concerns Infection Onset Date Last Indicated Resolved Time COVID-19 03/05/2022 03/05/2022 03/15/2022 7:18 PM EDT documented as of this encounter Care Teams Hydro Station Operator Relationship Specialty Start Date End Date Caitlyn Bowie MD 3400 [facility] 1 [place] [address] PCP - General Internal Medicine 05/06/21 Henry Kelly MD Pulmonary Department 175 [facility], [address] [place] [address] Physician Pulmonary Disease 09/06/17 06/22/20 documented as of this encounter
--- OUTSIDE RECORDS SUMMARY | 2024-11-11 15:34 | XMS_ITS | Encounter Summary ---
Author Organization [facility] and [facility] Address [address] [place] [address] Care Team Providers Care Engineering Associate Name Role Phone Caitlyn Bowie MD Primary Care Provider +1- [phone] Encounter Details Date Type Department Care Team (Late st Contact Info) Description 08/28/2015 Scanned Document [facility] Health Information Management [address] [place] [address] External, Provider Social History Tobacco Use Types [...] [facility] [address] [facility] Building [address] [place], [place] [phone] Ronald Mills MD 240 [facility] A1 [place] [address] documented as of this encounter Visit Diagnoses Not on filedocumented in this encounter Additional Health Concerns Infection Onset Date Last Indicated Resolved Time COVID-19 03/05/2022 03/05/2022 03/15/2022 7:18 PM EDT documented as of this encounter Care Teams Engineering Associate Relationship Specialty Start Date End Date Caitlyn Bowie MD 3400 [facility] 1 [place] [address] PCP - General Internal Medicine 05/06/21 Henry Kelly MD Pulmonary Department 175 [facility], [address] [place] [address] Physician Pulmonary Disease 09/06/17 06/22/20 documented as of this encounter
--- OUTSIDE RECORDS SUMMARY | 2024-11-11 15:34 | XMS_ITS | Encounter Summary ---
Author Organization [facility] and [facility] Address [address] [place] [address] Care Team Providers Care Vehicle Dismantler Name Role Phone Caitlyn Bowie MD Primary Care Provider +1- [phone] Encounter Details Date Type Department Care Team (Late st Contact Info) Description 12/06/2018 Scanned Document [facility] Health Information Management [address] [place] [address] External, Provider Social History Tobacco Use Types [...] [facility] 240 [facility] Building [address] [place], [place] [phone] Ronald Mills MD [address] [place] [address] [address]1 [place] [address] documented as of this encounter [...] as of this encounter Care Teams Vehicle Dismantler Relationship Specialty Start Date End Date Caitlyn Bowie MD 3400 [facility] 1 [place] [address] PCP - General Internal Medicine 05/06/21 Henry Kelly MD Pulmonary Department 175 [facility], [address] [place] [address] Physician Pulmonary Disease 09/06/17 06/22/20 documented as of this encounter
--- OUTSIDE RECORDS SUMMARY | 2024-11-11 15:34 | XMS_ITS | Encounter Summary ---
Author Organization [facility] Address [address] [place] [address] Care Team Providers Care Chronic Condition Nurse Name Role Phone Pcp, No Primary Care Provider Brennan Mario MD Primary Care Provider [phone] Caitlyn Bowie MD Primary Care Provider +1- [phone] Encounter Details Date Type Department Care Team (Late st Contact Info) Description 01/04/2022 Scanned Document [facility] Ophthalmology [address] [address] Yary Whitten DO [address] [place] [address] Social History Tobacco Use Types Packs/Day [...] filedocumented in this encounter Care Teams Chronic Condition Nurse Relationship Specialty Start Date End Date Pcp, No PCP - General General Medicine 10/04/21 07/18/22 Brenann Burnett MD [address] [place] [address] PCP - General 07/19/22 03/19/23 Caitlyn Bowie MD 3400 [place] [address] PCP - General Internal Medicine 03/20/23 documented as of this encounter
--- OUTSIDE RECORDS SUMMARY | 2024-11-11 15:34 | XMS_ITS | Encounter Summary ---
Author Organization [facility] and [facility] Address [address] [place] [address] Care Team Providers Care Meal Room Hand Name Role Phone Caitlyn Bowie MD Primary Care Provider +1- [phone] Reason for Visit * Reason Comments Advice Only mass Encounter Details Date Type Department Care Team (Late st Contact Info) Description 09/06/2021 Telephone [facility] at [address] [address] Ronald Mills MD [address] [place] [address] Advice Only (mass) Social History Tobacco [...] [facility] 240 [facility] Building [address] [place], [place] [id number] Ronald Mills MD 240 [facility] Max [address] [place] [address] documented as of this encounter Visit Diagnoses Not on filedocumented in this encounter Additional Health Concerns Infection Onset Date Last Indicated Resolved Time COVID-19 03/05/2022 03/05/2022 03/15/2022 7:18 PM EDT Assessment Noted Time PHQ-9 Depression Total Score: 2 11/07/19 19 2:06 PM EDT documented as of this encounter Care Teams Meal Room Hand Relationship Specialty Start Date End Date Caitlyn Bowie MD [address] [address] PCP - General Internal Medicine 05/06/21 documented as of this encounter
--- OUTSIDE RECORDS SUMMARY | 2024-11-11 15:34 | XMS_ITS | Encounter Summary ---
Author Organization [facility] Address [address] [place] [address] Care Team Providers Care Educational Aide Name Role Phone Caitlyn Bowie MD Primary Care Provider +1- [phone] Encounter Details Date Type Department Care Team (Late st Contact Info) Description 04/13/2023 Scanned Document INTERFACE DEFAULT [address] [place] [address] System, Provider Not In Social History Tobacco [...] [facility] 240 [facility] Building [address] [place] [address] Ronald Mills MD [address] [place] [address] [address] [place] [address] documented as of [...] documented as of this encounter Care Teams Educational Aide Relationship Specialty Start Date End Date Caitlyn Bowie MD [address] [address] PCP - General Internal Medicine 05/06/21 documented as of this encounter
--- OUTSIDE RECORDS SUMMARY | 2024-11-11 15:34 | XMS_ITS | Encounter Summary ---
Author Organization [facility] and [facility] Address [address] [place] [address] Care Team Providers Care Picker Tender Name Role Phone Caitlyn Bowie MD Primary Care Provider +1- [phone] Encounter Details Date Type Department Care Team (Late st Contact Info) Description 06/27/2022 Scanned Document INTERFACE DEFAULT [address] [place] [address] System, Provider Not In Social History Tobacco [...] Telemedicine [facility] 240 [facility] Building [address] [place], [place] [address] Ronald Mills MD [address] [place] [address] [address] [place] [address] documented as of this [...] as of this encounter Care Teams Picker Tender Relationship Specialty Start Date End Date Caitlyn Bowie MD [facility] [address] [address] PCP - General Internal Medicine 05/06/21 documented as of this encounter
--- OUTSIDE RECORDS SUMMARY | 2024-11-11 15:34 | XMS_ITS | Encounter Summary ---
Author Organization [facility] and [facility] Address [address] [place] [address] Care Team Providers Care Student Worker Name Role Phone Caitlyn Bowie MD Primary Care Provider +1- [phone] Encounter Details Date Type Department Care Team (Late st Contact Info) Description 06/24/2022 Scanned Document INTERFACE DEFAULT [address] [place] [address] System, Provider Not In Social History Tobacco [...] [facility] at [facility] 240 [facility] Building [address] [place], [place] [address] Ronald Mills MD [address] [place] [address] [address] [place] [address] documented as of this encounter [...] as of this encounter Care Teams Student Worker Relationship Specialty Start Date End Date Caitlyn Bowie MD [address] [address] PCP - General Internal Medicine 05/06/21 documented as of this encounter
--- OUTSIDE RECORDS SUMMARY | 2024-11-11 15:34 | XMS_ITS | Encounter Summary ---
Author Organization [facility] and [facility] Address [address] [place] [address] Care Team Providers Care Community Organizer Name Role Phone Caitlyn Bowie MD Primary Care Provider +1- [phone] Encounter Details Date Type Department Care Team (Late st Contact Info) Description 07/28/2022 Scanned Document [facility] Program at [address] [place] [address] Norma Renee MD [address] [place] [address] 2 [place] [address] Social History Tobacco Use Types [...] 4:00 PM EDT Telemedicine Cancer Center at [address] [place], [place] [address] Ronald Mills MD 240 [facility] A1 [place] [address] documented as of this encounter Visit Diagnoses Not on filedocumented in this encounter Additional Health Concerns Assessment Noted Time PHQ-9 Depression Total Score: 2 11/07/19 19 2:06 PM EDT documented as of this encounter Care Teams Community Organizer Relationship Specialty Start Date End Date Caitlyn Bowie MD [address] [address] PCP - General Internal Medicine 05/06/21 documented as of this encounter
--- OUTSIDE RECORDS SUMMARY | 2024-11-11 15:34 | XMS_ITS | Encounter Summary ---
Author Organization [facility] and [facility] Address [address] [place] [address] Care Team Providers Care Register Repairer Name Role Phone Caitlyn Bowie MD Primary Care Provider +1- [phone] Encounter Details Date Type Department Care Team (Late st Contact Info) Description 09/09/2015 Scanned Document [facility] Health Information Management [address] [place] [address] External, Provider Social History Tobacco Use Types [...] [facility] [address] [facility] Building [address] [place], [place] [phone] Ronald Mills MD 240 [facility] Max [address]1 [place] [address] documented as of this encounter Procedures Procedure Name Priority Date/Time Associated Diagnosis Comments LAB SCAN Routine 09/09/2015 documented in this encounter Results * Lab Scan (09/09/2015) Blood specimen (specimen) us Provider External LAB BLOOD ORDERABLES Final Res ult [facility] documented in this encounter Visit Diagnoses Not on filedocumented in this encounter Additional Health Concerns Infection Onset Date Last Indicated Resolved Time COVID-19 03/05/2022 03/05/2022 03/15/2022 7:18 PM EDT documented as of this encounter Care Teams Register Repairer Relationship Specialty Start Date End Date Caitlyn Bowie MD 3400 [facility] 1 [place] [address] PCP - General Internal Medicine 05/06/21 Henry Kelly MD Pulmonary Department 175 [facility], [address] [place] [address] Physician Pulmonary Disease 09/06/17 06/22/20 documented as of this encounter
--- OUTSIDE RECORDS SUMMARY | 2024-11-11 15:34 | XMS_ITS | Encounter Summary ---
Author Organization [facility] Address [address] [place] [address] Care Team Providers Care Material Handling Technician Name Role Phone Caitlyn Bowie MD Primary Care Provider +1- [phone] Encounter Details Date Type Department Care Team (Late st Contact Info) Description 06/28/2022 Scanned Document INTERFACE DEFAULT [address] [place] [address] System, Provider Not In Social History Tobacco [...] [facility] 240 [facility] Building [address] [place], [place] [address] Ronald Mills MD [address] [place] [address] [address]1 [place] [address] documented as of this encounter [...] as of this encounter Care Teams Material Handling Technician Relationship Specialty Start Date End Date Caitlyn Bowie MD [address] [address] PCP - General Internal Medicine 05/06/21 documented as of this encounter
--- OUTSIDE RECORDS SUMMARY | 2024-11-11 15:34 | XMS_ITS | Encounter Summary ---
Author Organization [facility] Address [address] [place] [address] Phone Care Team Providers Care Corporate Buyer Name Role Phone Caitlyn Bowie MD Primary Care Provider +1- [phone] Encounter Details Date Type Department Care Team (Late st Contact Info) Description 10/10/2024 Documentation Only [facility] [address] [place] [address] [place], [place] [address] [place] [address] Social History Tobacco Use Types [...] Visit [facility] [address] [place] [address] Rubén Ashraf MD [address] [place] [address] [place] [address] documented as of this encounter Visit Diagnoses Not on filedocumented in this encounter Care Teams Corporate Buyer Relationship Specialty Start Date End Date Caitlyn Bowie MD [address] [place], [place] PCP - General Internal Medicine 09/24/24 documented as of this encounter
--- OUTSIDE RECORDS SUMMARY | 2024-11-11 15:34 | XMS_ITS | Encounter Summary ---
Author Organization [facility] and [facility] Address [address] [place] [address] Care Team Providers Care Machine Assistant Name Role Phone Caitlyn Bowie MD Primary Care Provider +1- [phone] Encounter Details Date Type Department Care Team (Late st Contact Info) Description 05/10/2022 Scanned Document Cardiovascular Medicine at [address] [place] [phone] Norma Renee MD [address] [place] [phone] Social History Tobacco Use Types Packs/Day Years [...] PM EDT Telemedicine Cancer Center at [address] [place] [address] Ronald Mills MD [address] [place] [address] [address]1 [place] [address] documented as of this encounter Visit Diagnoses Not on filedocumented in this encounter Additional Health Concerns Assessment Noted Time PHQ-9 Depression Total Score: 2 11/07/19 19 2:06 PM EDT documented as of this encounter Care Teams Machine Assistant Relationship Specialty Start Date End Date Caitlyn Bowie MD [address] [address] PCP - General Internal Medicine 05/06/21 documented as of this encounter
--- OUTSIDE RECORDS SUMMARY | 2024-11-11 15:34 | XMS_ITS | Encounter Summary ---
Author Organization [facility] Address [address] [place] [address] Care Team Providers Care Brake Machine Operator Name Role Phone Caitlyn Bowie MD Primary Care Provider +1- [phone] Encounter Details Date Type Department Care Team (Late st Contact Info) Description 08/23/2022 Abstract Cardiovascular Medicine at [address]nd [place] [address] Norma Renee MD [address] [place] [phone] Social History Tobacco Use Types Packs/Day Years [...] PM EDT Telemedicine Cancer Center at [address] [place] [address] Ronald Mills MD [address] [place] [address] [address]1 [place] [address] documented as of this encounter Visit Diagnoses Not on filedocumented in this encounter Additional Health Concerns Assessment Noted Time PHQ-9 Depression Total Score: 2 11/07/19 19 2:06 PM EDT documented as of this encounter Care Teams Brake Machine Operator Relationship Specialty Start Date End Date Caitlyn Bowie MD [address] [address] PCP - General Internal Medicine 05/06/21 documented as of this encounter
--- OUTSIDE RECORDS SUMMARY | 2024-11-11 15:34 | XMS_ITS | Encounter Summary ---
Author Organization [facility] Address [address] [place] [address] [address] [place] [address] Phone Care Team Providers Care Environmental Issues Instructor Name Role Phone Caitlyn Bowie MD Primary Care Provider +1- [phone] Encounter Details Date Type Department Care Team (Late st Contact Info) Description 08/30/2024 Abstract [facility] [address] [place] [address] 202 [place] [address] Adalgisa Whitney MD [address] [place] [address] 202 [place] [address] Social History Tobacco Use Types [...] PM EDT Telemedicine Cancer Center at [address] [place] [address] Ronald Mills MD 240 [facility] A1 [place] [address] documented as of this encounter Visit Diagnoses Not on filedocumented in this encounter Additional Health Concerns Assessment Noted Time PHQ-9 Depression Total Score: 2 11/07/19 19 2:06 PM EDT documented as of this encounter Care Teams Environmental Issues Instructor Relationship Specialty Start Date End Date Caitlyn Bowie MD [address] [address] PCP - General Internal Medicine 05/06/21 documented as of this encounter
--- OUTSIDE RECORDS SUMMARY | 2024-11-11 15:34 | XMS_ITS | Encounter Summary ---
Author Organization [facility] Address [address] [place] [address] Care Team Providers Care Buggy Loader Name Role Phone Caitlyn Bowie MD Primary Care Provider +1- [phone] Encounter Details Date Type Department Care Team (Late st Contact Info) Description 09/09/2021 Scanned Document INTERFACE DEFAULT [address] [place] [address] System, Provider Not In Social History Tobacco [...] Telemedicine [facility] 240 [facility] Building [address] [place] [address] Ronald Mills MD [address] [place] [address] [address] [place] [address] documented as of this encounter Visit Diagnoses Not on filedocumented in this encounter Additional Health Concerns Infection Onset Date Last Indicated Resolved Time COVID-19 03/05/2022 03/05/2022 03/15/2022 7:18 PM EDT Assessment Noted Time PHQ-9 Depression Total Score: 2 11/07/19 19 2:06 PM EDT documented as of this encounter Care Teams Buggy Loader Relationship Specialty Start Date End Date Caitlyn Bowie MD [address] [address] PCP - General Internal Medicine 05/06/21 documented as of this encounter
--- OUTSIDE RECORDS SUMMARY | 2024-11-11 15:34 | XMS_ITS | Encounter Summary ---
Author Organization [facility] Address [address] [place] [address] Care Team Providers Care Knotting Machine Operator Name Role Phone Caitlyn Bowie MD Primary Care Provider +1- [phone] Encounter Details Date Type Department Care Team (Late st Contact Info) Description 12/04/2018 Scanned Document [facility] Health Information Management [address] [place] [address] External, Provider Social History Tobacco Use Types [...] [facility] 240 [facility] Building [address] [place], [place] [phone] Ronald Mills MD 240 [facility] A1 [place] [address] documented as of this encounter Visit Diagnoses Not on filedocumented in this encounter Additional Health Concerns Infection Onset Date Last Indicated Resolved Time COVID-19 03/05/2022 03/05/2022 03/15/2022 7:18 PM EDT Assessment Noted Time PHQ-9 Depression Total Score: 2 11/07/19 19 2:06 PM EDT documented as of this encounter Care Teams Knotting Machine Operator Relationship Specialty Start Date End Date Caitlyn Bowie MD 3400 [facility] Max 1 [place] [address] PCP - General Internal Medicine 05/06/21 Henry Kelly MD Pulmonary Department 175 [facility], [address] [place] [address] Physician Pulmonary Disease 09/06/17 06/22/20 documented as of this encounter
--- OUTSIDE RECORDS SUMMARY | 2024-11-11 15:34 | XMS_ITS | Encounter Summary ---
Author Organization [facility] Address [address] [place] [address] Care Team Providers Care Vehicle Upholsterer Name Role Phone Caitlyn Bowie MD Primary Care Provider +1- [phone] Encounter Details Date Type Department Care Team (Late st Contact Info) Description 01/02/2024 Scanned Document INTERFACE DEFAULT [address] [place] [address] System, Provider Not In Social History Tobacco [...] at [facility] [address] [facility] Building [address] [place], [place] [phone] Ronald Mills MD [address] [place] [address] [address] [place] [address] documented as of this encounter [...] as of this encounter Care Teams Vehicle Upholsterer Relationship Specialty Start Date End Date Caitlyn Bowie MD [address] [address] PCP - General Internal Medicine 05/06/21 documented as of this encounter
--- OUTSIDE RECORDS SUMMARY | 2024-11-11 15:34 | XMS_ITS | Encounter Summary ---
Author Organization [facility] Address [address] [place] [address] Care Team Providers Care First Calender Worker Name Role Phone Caitlyn Bowie MD Primary Care Provider +1- [phone] Encounter Details Date Type Department Care Team (Late st Contact Info) Description 09/07/2021 Scanned Document INTERFACE DEFAULT [address] [place] [address] System, Provider Not In Social History Tobacco [...] [facility] [place] 240 [facility] Building [address] [place], [place] [address] Ronald Mills MD [address] [place] [address] [address] [place] [address] documented as of this encounter [...] as of this encounter Care Teams First Calender Worker Relationship Specialty Start Date End Date Caitlyn Bowie MD [address] [address] PCP - General Internal Medicine 05/06/21 documented as of this encounter
--- OUTSIDE RECORDS SUMMARY | 2024-11-11 15:34 | XMS_ITS | Encounter Summary ---
Author Organization [facility] and [facility] Address [address] [place] [address] Care Team Providers Care Slitter Scorer Name Role Phone Caitlyn Bowie MD Primary Care Provider +1- [phone] Encounter Details Date Type Department Care Team (Late st Contact Info) Description 06/20/2022 Scanned Document INTERFACE DEFAULT [address] [place] [address] System, Provider Not In Social History Tobacco [...] [facility] Building [address] [place], [place] [id number] Ronald Mills MD [address] [place] [address] [address] [place] [address] documented as of this encounter [...] documented as of this encounter Care Teams Slitter Scorer Relationship Specialty Start Date End Date Caitlyn Bowie MD [facility] [address] [address] PCP - General Internal Medicine 05/06/21 documented as of this encounter
--- OUTSIDE RECORDS SUMMARY | 2024-11-11 15:34 | XMS_ITS | Encounter Summary ---
Author Organization [facility] and [facility] Address [address] [place] [address] Care Team Providers Care Icebox Man Name Role Phone Caitlyn Bowie MD Primary Care Provider +1- [phone] Encounter Details Date Type Department Care Team (Late st Contact Info) Description 07/07/2021 Scanned Document INTERFACE DEFAULT [address] [place] [address] System, Provider Not In Social History Tobacco [...] [facility] 240 [facility] Building [address] [place] [address] Ronald Mills MD [address] [place] [address] [address] [place] [address] documented as of this encounter Visit Diagnoses Not on filedocumented in this encounter Additional Health Concerns Infection Onset Date Last Indicated Resolved Time COVID-19 03/05/2022 03/05/2022 03/15/2022 7:18 PM EDT Assessment Noted Time PHQ-9 Depression Total Score: 2 11/07/19 19 2:06 PM EDT documented as of this encounter Care Teams Icebox Man Relationship Specialty Start Date End Date Caitlyn Bowie MD [address] [address] PCP - General Internal Medicine 05/06/21 documented as of this encounter
--- OUTSIDE RECORDS SUMMARY | 2024-11-11 15:34 | XMS_ITS | Encounter Summary ---
Author Organization [facility] Address [address] [place] [address] Care Team Providers Care Neurosurgery Research Director Name Role Phone Caitlyn Bowie MD Primary Care Provider +1- [phone] Encounter Details Date Type Department Care Team (Late st Contact Info) Description 09/10/2021 Scanned Document Cardiovascular Medicine at [address] [place] [phone] Norma Renee MD [address] [place] [phone] Social History Tobacco Use Types Packs/Day Years [...] PM EDT [facility] at [address] [place] [address] Ronald Mills MD [address] [place] [address] [address] [place] [address] documented as of this encounter Visit Diagnoses Not on filedocumented in this encounter Additional Health Concerns Infection Onset Date Last Indicated Resolved Time COVID-19 03/05/2022 03/05/2022 03/15/2022 7:18 PM EDT Assessment Noted Time PHQ-9 Depression Total Score: 2 11/07/19 19 2:06 PM EDT documented as of this encounter Care Teams Neurosurgery Research Director Relationship Specialty Start Date End Date Caitlyn Bowie MD [address] [address] PCP - General Internal Medicine 05/06/21 documented as of this encounter
--- OUTSIDE RECORDS SUMMARY | 2024-11-11 15:34 | XMS_ITS | Encounter Summary ---
Author Organization [facility] and [facility] Address [address] [place] [address] Care Team Providers Care Ui Developer Designer Name Role Phone Caitlyn Bowie MD Primary Care Provider +1- [phone] Encounter Details Date Type Department Care Team (Late Contact Info) Description 01/31/2023 Abstract [facility] Melanoma Surgery 35 [facility] [place] [address] Shilpi Romero, RN Social History Tobacco Use [...] [facility] [address] [facility] [address] [place], [place] [address] Ronald Mills MD 240 [facility] [address] [place] [address] documented as of this encounter Visit Diagnoses Not on filedocumented in this encounter Additional Health Concerns Assessment Noted Time PHQ-9 Depression Total Score: 2 11/07/19 19 2:06 PM EDT documented as of this encounter Care Teams Ui Developer Designer Relationship Specialty Start Date End Date Caitlyn Bowie MD [address] [address] PCP - General Internal Medicine 05/06/21 documented as of this encounter
--- OUTSIDE RECORDS SUMMARY | 2024-11-11 15:34 | XMS_ITS | Encounter Summary ---
Author Organization [facility] and [facility] Address [address] [place] [address] Care Team Providers Care Psychometrician Name Role Phone Caitlyn Bowie MD Primary Care Provider +1- [phone] Encounter Details Date Type Department Care Team (Late st Contact Info) Description 09/24/2021 Scanned Document INTERFACE DEFAULT [address] [place] [address] System, Provider Not In Social History Tobacco [...] at [facility] 240 [facility] Building [address] [place] [address] Ronald Mills MD [address] [place] [address] [address] [place] [address] documented as of this encounter [...] documented as of this encounter Care Teams Psychometrician Relationship Specialty Start Date End Date Caitlyn Bowie MD [facility] [address] [address] PCP - General Internal Medicine 05/06/21 documented as of this encounter
--- OUTSIDE RECORDS SUMMARY | 2024-11-11 15:34 | XMS_ITS | Encounter Summary ---
Author Organization [facility] and [facility] Address [address] [place] [address] Care Team Providers Care Associate Agent Insurance Sales Name Role Phone Caitlyn Bowie MD Primary Care Provider +1- [phone] Encounter Details Date Type Department Care Team (Late st Contact Info) Description 09/01/2023 Scanned Document INTERFACE DEFAULT [address] [place] [address] System, Provider Not In Social History Tobacco [...] [facility] 240 [facility] [address] [place] [address] Ronald Mills MD [address] [place] [address] [address] [place] [address] documented as of this encounter Visit Diagnoses Not on filedocumented in this encounter Additional Health Concerns Assessment Noted Time PHQ-9 Depression Total Score: 2 11/07/19 19 2:06 PM EDT documented as of this encounter Care Teams Associate Agent Insurance Sales Relationship Specialty Start Date End Date Caitlyn Bowie MD [address] [address] PCP - General Internal Medicine 05/06/21 documented as of this encounter
--- OUTSIDE RECORDS SUMMARY | 2024-11-11 15:34 | XMS_ITS | Encounter Summary ---
Author Organization [facility] and [facility] Address [address] [place] [address] Care Team Providers Care Newspaper Vendor Name Role Phone Caitlyn Bowie MD Primary Care Provider +1- [phone] Encounter Details Date Type Department Care Team (Late st Contact Info) Description 09/24/2015 Scanned Document Digestive Diseases at [facility] [address] [place] [address] Kevin Espinoza MD [address] [place] [address] Social History Tobacco Use Types Packs/Day [...] PM EDT [facility] at [address] [place], [place] [phone] Ronald Mills MD [address] [place] [address] [address] [place] [address] documented as of this encounter Visit Diagnoses Not on filedocumented in this encounter Additional Health Concerns Infection Onset Date Last Indicated Resolved Time COVID-19 03/05/2022 03/05/2022 03/15/2022 7:18 PM EDT documented as of this encounter Care Teams Newspaper Vendor Relationship Specialty Start Date End Date Caitlyn Bowie MD 3400 [facility] 1 [place] [address] PCP - General Internal Medicine 05/06/21 Henry Kelly MD Pulmonary Department 175 [facility] [place] [address] Physician Pulmonary Disease 09/06/17 06/22/20 documented as of this encounter
--- OUTSIDE RECORDS SUMMARY | 2024-11-11 15:34 | XMS_ITS | Encounter Summary ---
Author Organization [facility] and [facility] Address [address] [place] [address] Care Team Providers Care Deputy Chief Counsel Name Role Phone Caitlyn Bowie MD Primary Care Provider +1- [phone] Encounter Details Date Type Department Care Team (Late st Contact Info) Description 09/28/2015 Scanned Document [facility] Health Information Management [address] [place] [phone] External, Provider Social History Tobacco Use Types [...] [facility] 240 [facility] Building [address] [place], [place] [id number] Ronald Mills MD 240 [facility] [address] [place] [address] documented as of this encounter Procedures Procedure Name Priority Date/Time Associated Diagnosis Comments LAB SCAN Routine 09/09/2015 documented in this encounter Results * Lab Scan (09/09/2015) Blood specimen (specimen) us Provider External LAB BLOOD ORDERABLES Final Res ult [facility] documented in this encounter Visit Diagnoses Not on filedocumented in this encounter Additional Health Concerns Infection Onset Date Last Indicated Resolved Time COVID-19 03/05/2022 03/05/2022 03/15/2022 7:18 PM EDT documented as of this encounter Care Teams Deputy Chief Counsel Relationship Specialty Start Date End Date Caitlyn Bowie MD 3400 [facility] 1 [place] [address] PCP - General Internal Medicine 05/06/21 Henry Kelly MD Pulmonary Department 175 [facility], [address] [place] [address] Physician Pulmonary Disease 09/06/17 06/22/20 documented as of this encounter
--- OUTSIDE RECORDS SUMMARY | 2024-11-11 15:34 | XMS_ITS | Encounter Summary ---
Author Organization [facility] and [facility] Address [address] [place] [address] Care Team Providers Care Memorandum Statement Clerk Name Role Phone Caitlyn Bowie MD Primary Care Provider +1- [phone] Encounter Details Date Type Department Care Team (Late st Contact Info) Description 07/22/2021 Scanned Document INTERFACE DEFAULT [address] [place] [address] System, Provider Not In Social History Tobacco [...] [facility] 240 [facility] Building [address] [place], [place] [address] Ronald Mills MD [address] [place] [address] [address] [place] [address] documented as of this encounter [...] documented as of this encounter Care Teams Memorandum Statement Clerk Relationship Specialty Start Date End Date Caitlyn Bowie MD [address] [address] PCP - General Internal Medicine 05/06/21 documented as of this encounter
--- OUTSIDE RECORDS SUMMARY | 2024-11-11 15:34 | XMS_ITS | Encounter Summary ---
Author Organization [facility] and [facility] Address [address] [place] [address] Care Team Providers Care Probation Manager Name Role Phone Caitlyn Bowie MD Primary Care Provider +1- [phone] Encounter Details Date Type Department Care Team (Late st Contact Info) Description 09/09/2015 Scanned Document [facility] Health Information Management [address] [place] [address] External, Provider Social History Tobacco Use Types [...] [facility] 240 [facility] Building [address] [place], [place] [phone] Ronald Mills MD 240 [facility] [address] [place] [address] documented as of this encounter Procedures Procedure Name Priority Date/Time Associated Diagnosis Comments LAB SCAN Routine 09/09/2015 documented in this encounter Results * Lab Scan (09/09/2015) Blood specimen (specimen) us Provider External LAB BLOOD ORDERABLES Final Res ult Performing Organization Address City/State/[facility] Co de Phone Number [facility] documented in this encounter Visit Diagnoses Not on filedocumented in this encounter Additional Health Concerns Infection Onset Date Last Indicated Resolved Time COVID-19 03/05/2022 03/05/2022 03/15/2022 7:18 PM EDT documented as of this encounter Care Teams Probation Manager Relationship Specialty Start Date End Date Caitlyn Bowie MD 3400 [facility] 1 [place] [address] PCP - General Internal Medicine 05/06/21 Henry Kelly MD Pulmonary Department 175 [facility], [address] [place] [address] Physician Pulmonary Disease 09/06/17 06/22/20 documented as of this encounter
--- OUTSIDE RECORDS SUMMARY | 2024-11-11 15:34 | XMS_ITS | Encounter Summary ---
Author Organization [facility] Address [address] [place] [address] Care Team Providers Care Premium Card Cancellation Clerk Name Role Phone Caitlyn Bowie MD Primary Care Provider +1- [phone] Encounter Details Date Type Department Care Team (Late st Contact Info) Description 09/09/2015 Scanned Document [facility] Health Information Management [address] [place] [address] External, Provider Social History Tobacco Use Types [...] [facility] Building [address] [place], [place] [address] Ronald Mills MD 240 [facility] [address] [place] [address] documented as of this encounter Procedures Procedure Name Priority Date/Time Associated Diagnosis Comments LAB SCAN Routine 09/09/2015 documented in this encounter Results * Lab Scan (09/09/2015) Blood specimen (specimen) us Provider External LAB BLOOD ORDERABLES Final Res ult [facility] documented in this encounter Visit Diagnoses Not on filedocumented in this encounter Additional Health Concerns Infection Onset Date Last Indicated Resolved Time COVID-19 03/05/2022 03/05/2022 03/15/2022 7:18 PM EDT documented as of this encounter Care Teams Premium Card Cancellation Clerk Relationship Specialty Start Date End Date Caitlyn Bowie MD 3400 [facility] 1 [place] [address] PCP - General Internal Medicine 05/06/21 Henry Kelly MD Pulmonary Department 175 [facility], [address] [place] [address] Physician Pulmonary Disease 09/06/17 06/22/20 documented as of this encounter
--- OUTSIDE RECORDS SUMMARY | 2024-11-11 15:34 | XMS_ITS | Encounter Summary ---
Author Organization [facility] Address [address] [place] [address] Care Team Providers Care Comfort Station Attendant Name Role Phone Caitlyn Bowie MD Primary Care Provider +1- [phone] Encounter Details Date Type Department Care Team (Late st Contact Info) Description 06/23/2022 Scanned Document INTERFACE DEFAULT [address] [place] [address] System, Provider Not In Social History Tobacco [...] [facility] Building [address] [place] [address] Ronald Mills MD [address] [place] [address] [address] [place] [address] documented as of this encounter Visit Diagnoses Not on filedocumented in this encounter Additional Health Concerns Assessment Noted Time PHQ-9 Depression Total Score: 2 11/07/19 19 2:06 PM EDT documented as of this encounter Care Teams Comfort Station Attendant Relationship Specialty Start Date End Date Caitlyn Bowie MD [address] [address] PCP - General Internal Medicine 05/06/21 documented as of this encounter
--- OUTSIDE RECORDS SUMMARY | 2024-11-11 15:34 | XMS_ITS | Encounter Summary ---
Author Organization [facility] and [facility] Address [address] [place] [address] Care Team Providers Care Phlebotomy Instructor Name Role Phone Caitlyn Bowie MD Primary Care Provider +1- [phone] Encounter Details Date Type Department Care Team (Late st Contact Info) Description 12/31/2015 Scanned Document [facility] [address] [place] [address] External, Provider Social History Tobacco Use Types [...] [facility] 240 [facility] Building [address] [place], [place] [address] Ronald Mills MD [address] [place] [address] [address] [place] [address] documented as of this encounter Procedures Procedure Name Priority Date/Time Associated Diagnosis Comments LAB SCAN Routine 12/31/2015 documented in this encounter Results * Lab Scan (12/31/2015) Blood specimen (specimen) us Provider External LAB BLOOD ORDERABLES Final Res ult Performing Organization Address City/State/[facility] Co de Phone Number [facility] documented in this encounter Visit Diagnoses Not on filedocumented in this encounter Additional Health Concerns Infection Onset Date Last Indicated Resolved Time COVID-19 03/05/2022 03/05/2022 03/15/2022 7:18 PM EDT documented as of this encounter Care Teams Phlebotomy Instructor Relationship Specialty Start Date End Date Caitlyn Bowie MD 3400 [facility] 1 [place] [address] PCP - General Internal Medicine 05/06/21 Henry Kelly MD Pulmonary Department 175 [facility], [address] [place] [address] Physician Pulmonary Disease 09/06/17 06/22/20 documented as of this encounter
--- OUTSIDE RECORDS SUMMARY | 2024-11-11 15:34 | XMS_ITS | Encounter Summary ---
Author Organization [facility] and [facility] Address [address] [place] [address] Care Team Providers Care Balloon Pilot Name Role Phone Caitlyn Bowie MD Primary Care Provider +1- [phone] Encounter Details Date Type Department Care Team (Late st Contact Info) Description 12/23/2022 Scanned Document INTERFACE DEFAULT [address] [place] [address] System, Provider Not In Social History Tobacco [...] [facility] 240 [facility] Building [address] [place] [address] Ronald Mills MD [address] [place] [address] [address] [place] [address] documented as of this encounter Visit Diagnoses Not on filedocumented in this encounter Additional Health Concerns Assessment Noted Time PHQ-9 Depression Total Score: 2 11/07/19 19 2:06 PM EDT documented as of this encounter Care Teams Balloon Pilot Relationship Specialty Start Date End Date Caitlyn Bowie MD [address] [address] PCP - General Internal Medicine 05/06/21 documented as of this encounter
--- OUTSIDE RECORDS SUMMARY | 2024-11-11 15:34 | XMS_ITS | Encounter Summary ---
Author Organization [facility] and [facility] Address [address] [place] [address] Care Team Providers Care Larriman Helper Name Role Phone Caitlyn Bowie MD Primary Care Provider +1- [phone] Encounter Details Date Type Department Care Team (Late st Contact Info) Description 04/25/2022 Scanned Document INTERFACE DEFAULT [address] [place] [address] System, Provider Not In Social History Tobacco [...] [facility] 240 [facility] Building [address] [place] [address] Ronald Mills MD [address] [place] [address] [address]1 [place] [address] documented as of this encounter Visit Diagnoses Not on filedocumented in this encounter Additional Health Concerns Assessment Noted Time PHQ-9 Depression Total Score: 2 11/07/19 19 2:06 PM EDT documented as of this encounter Care Teams Larriman Helper Relationship Specialty Start Date End Date Caitlyn Bowie MD [address] [address] PCP - General Internal Medicine 05/06/21 documented as of this encounter
--- OUTSIDE RECORDS SUMMARY | 2024-11-11 15:34 | XMS_ITS | Encounter Summary ---
Author Organization [facility] Address [address] [place] [address] Care Team Providers Care Liver Trimmer Name Role Phone Caitlyn Bowie MD Primary Care Provider +1- [phone] Encounter Details Date Type Department Care Team (Late st Contact Info) Description 07/06/2021 Scanned Document INTERFACE DEFAULT [address] [place] [address] System, Provider Not In Social History Tobacco [...] at [facility] 240 [facility] [address] [place] [address] Ronald Mills MD [address] [place] [address] [address] [place] [address] documented as of this encounter Visit Diagnoses Not on filedocumented in this encounter Additional Health Concerns Infection Onset Date Last Indicated Resolved Time COVID-19 03/05/2022 03/05/2022 03/15/2022 7:18 PM EDT Assessment Noted Time PHQ-9 Depression Total Score: 2 11/07/19 19 2:06 PM EDT documented as of this encounter Care Teams Liver Trimmer Relationship Specialty Start Date End Date Caitlyn Bowie MD [address] [address] PCP - General Internal Medicine 05/06/21 documented as of this encounter
--- OUTSIDE RECORDS SUMMARY | 2024-11-11 15:34 | XMS_ITS | Encounter Summary ---
Author Organization [facility] Address [address] [place] [address] Care Team Providers Care Quality Liaison Name Role Phone Caitlyn Bowie MD Primary Care Provider +1- [phone] Encounter Details Date Type Department Care Team (Late st Contact Info) Description 04/22/2022 Scanned Document INTERFACE DEFAULT [address] [place] [address] System, Provider Not In Social History Tobacco [...] [facility] 240 [facility] Building [address] [place], [place] [phone] Ronald Mills MD [address] [place] [address] [address] [place] [address] documented as of this encounter [...] as of this encounter Care Teams Quality Liaison Relationship Specialty Start Date End Date Caitlyn Bowie MD [address] [address] PCP - General Internal Medicine 05/06/21 documented as of this encounter
--- OUTSIDE RECORDS SUMMARY | 2024-11-11 15:34 | XMS_ITS | Encounter Summary ---
Author Organization [facility] and [facility] Address [address] [place] [address] Care Team Providers Care Analysis Evaluator Name Role Phone Caitlyn Bowie MD Primary Care Provider +1- [phone] Encounter Details Date Type Department Care Team (Late st Contact Info) Description 05/02/2022 Scanned Document INTERFACE DEFAULT [address] [place] [address] System, Provider Not In Social History Tobacco [...] [facility] Building [address] [place] [address] Ronald Mills MD [address] [place] [address] [address] [place] [address] documented as of this encounter [...] documented as of this encounter Care Teams Analysis Evaluator Relationship Specialty Start Date End Date Caitlyn Bowie MD [address] [address] PCP - General Internal Medicine 05/06/21 documented as of this encounter
--- OUTSIDE RECORDS SUMMARY | 2024-11-11 15:34 | XMS_ITS | Encounter Summary ---
Author Organization [facility] and [facility] Address [address] [place] [address] Care Team Providers Care Temperature Control Inspector Name Role Phone Caitlyn Bowie MD Primary Care Provider +1- [phone] Encounter Details Date Type Department Care Team (Late st Contact Info) Description 06/08/2022 Scanned Document INTERFACE DEFAULT [address] [place] [address] System, Provider Not In Social History Tobacco [...] Center at [facility] [address] [facility] [address] [place], [place] [phone] Ronald Mills MD [address] [place] [address] [address] [place] [address] documented as of this encounter [...] documented as of this encounter Care Teams Temperature Control Inspector Relationship Specialty Start Date End Date Caitlyn Bowie MD [address] [address] PCP - General Internal Medicine 05/06/21 documented as of this encounter
--- OUTSIDE RECORDS SUMMARY | 2024-11-11 15:34 | XMS_ITS | Encounter Summary ---
Author Organization [facility] and [facility] Address [address] [place] [address] Care Team Providers Care Kiln Setter Name Role Phone Caitlyn Bowie MD Primary Care Provider +1- [phone] Encounter Details Date Type Department Care Team (Late st Contact Info) Description 06/21/2022 Scanned Document INTERFACE DEFAULT [address] [place] [address] System, Provider Not In Social History Tobacco [...] at [facility] 240 [facility] Building [address] [place], [place] [phone] Ronald Mills MD [address] [place] [address] [address] [place] [address] documented as of this encounter [...] as of this encounter Care Teams Kiln Setter Relationship Specialty Start Date End Date Caitlyn Bowie MD [address] [address] PCP - General Internal Medicine 05/06/21 documented as of this encounter
--- OUTSIDE RECORDS SUMMARY | 2024-11-11 15:34 | XMS_ITS | Encounter Summary ---
Author Organization [facility] and [facility] Address [address] [place] [address] Care Team Providers Care Photographer Motion Picture Name Role Phone Caitlyn Bowie MD Primary Care Provider +1- [phone] Encounter Details Date Type Department Care Team (Late st Contact Info) Description 05/04/2022 Scanned Document INTERFACE DEFAULT [address] [place] [address] System, Provider Not In Social History Tobacco [...] [facility] 240 [facility] [address] [place] [address] Ronald Mills MD [address] [place] [address] [address] [place] [address] documented as of this encounter Visit Diagnoses Not on filedocumented in this encounter Additional Health Concerns Assessment Noted Time PHQ-9 Depression Total Score: 2 11/07/19 19 2:06 PM EDT documented as of this encounter Care Teams Photographer Motion Picture Relationship Specialty Start Date End Date Caitlyn Bowie MD [address] [address] PCP - General Internal Medicine 05/06/21 documented as of this encounter
--- OUTSIDE RECORDS SUMMARY | 2024-11-11 15:34 | XMS_ITS | Encounter Summary ---
Author Organization [facility] and [facility] Address [address] [place] [address] Care Team Providers Care Air Motor Repairer Name Role Phone Caitlyn Bowie MD Primary Care Provider +1- [phone] Encounter Details Date Type Department Care Team (Late st Contact Info) Description 05/16/2023 Scanned Document INTERFACE DEFAULT [address] [place] [address] System, Provider Not In Social History Tobacco [...] at [facility] 240 [facility] Building [address] [place], [place] [address] Ronald Mills MD [address] [place] [address] [address] [place] [address] documented as of this encounter [...] as of this encounter Care Teams Air Motor Repairer Relationship Specialty Start Date End Date Caitlyn Bowie MD [address] [address] PCP - General Internal Medicine 05/06/21 documented as of this encounter
--- OUTSIDE RECORDS SUMMARY | 2024-11-11 15:34 | XMS_ITS | Encounter Summary ---
Author Organization [facility] and [facility] Address [address] [place] [address] Care Team Providers Care Closer On Name Role Phone Caitlyn Bowie MD Primary Care Provider +1- [phone] Encounter Details Date Type Department Care Team (Late st Contact Info) Description 04/19/2023 Scanned Document INTERFACE DEFAULT [address] [place] [address] System, Provider Not In Social History Tobacco [...] [facility] 240 [facility] Building [address] [place], [place] [address] Ronald Mills MD [address] [place] [address] [address] [place] [address] documented as of this encounter [...] documented as of this encounter Care Teams Closer On Relationship Specialty Start Date End Date Caitlyn Bowie MD [address] [address] PCP - General Internal Medicine 05/06/21 documented as of this encounter
--- OUTSIDE RECORDS SUMMARY | 2024-11-11 15:34 | XMS_ITS | Encounter Summary ---
Author Organization [facility] and [facility] Address [address] [place] [address] Care Team Providers Care Auditor/Quality Name Role Phone Caitlyn Bowie MD Primary Care Provider +1- [phone] Encounter Details Date Type Department Care Team (Late st Contact Info) Description 04/19/2022 Scanned Document INTERFACE DEFAULT [address] [place] [address] System, Provider Not In Social History Tobacco [...] at [facility] 240 [facility] Building [address] [place], [place] [address] Ronald Mills MD [address] [place] [address] [address] [place] [address] documented as of this encounter [...] documented as of this encounter Care Teams Auditor/Quality Relationship Specialty Start Date End Date Caitlyn Bowie MD [address] [address] PCP - General Internal Medicine 05/06/21 documented as of this encounter
--- OUTSIDE RECORDS SUMMARY | 2024-11-11 15:34 | XMS_ITS | Encounter Summary ---
Author Organization [facility] Address [address] [place] [address] Care Team Providers Care Technical Services Manager Name Role Phone Caitlyn Bowie MD Primary Care Provider +1- [phone] Encounter Details Date Type Department Care Team (Late st Contact Info) Description 07/08/2022 Scanned Document Cardiovascular Medicine at [address] [place] [phone] Norma Renee MD [address] [place] [phone] Social History Tobacco Use Types Packs/Day Years [...] PM EDT [facility] at [address] [place] [address] Ronald Mills MD [address] [place] [address] [address]1 [place] [address] documented as of this encounter Visit Diagnoses Not on filedocumented in this encounter Additional Health Concerns Assessment Noted Time PHQ-9 Depression Total Score: 2 11/07/19 19 2:06 PM EDT documented as of this encounter Care Teams Technical Services Manager Relationship Specialty Start Date End Date Caitlyn Bowie MD [address] [address] PCP - General Internal Medicine 05/06/21 documented as of this encounter
--- OUTSIDE RECORDS SUMMARY | 2024-11-11 15:34 | XMS_ITS | Encounter Summary ---
Author Organization [facility] and [facility] Address [address] [place] [address] Care Team Providers Care Oracle Manufacturing Consultant Name Role Phone Caitlyn Bwoie MD Primary Care Provider +1- [phone] Encounter Details Date Type Department Care Team (Late st Contact Info) Description 10/23/2018 Scanned Document [facility] Health Information Management [address] [place] [address] External, Provider Social History Tobacco Use Types [...] [facility] 240 [facility] Building [address] [place], [place] [phone] Ronald Mills MD [address] [place] [address] [address] [place] [address] documented as of this encounter Visit Diagnoses Not on filedocumented in this encounter Additional Health Concerns Infection Onset Date Last Indicated Resolved Time COVID-19 03/05/2022 03/05/2022 03/15/2022 7:18 PM EDT documented as of this encounter Care Teams Oracle Manufacturing Consultant Relationship Specialty Start Date End Date Caitlyn Bowie MD 3400 [facility] 1 [address] PCP - General Internal Medicine 05/06/21 Henry Kelly MD Pulmonary Department 175 [facility], [address] [address] Physician Pulmonary Disease 09/06/17 06/22/20 documented as of this encounter
--- OUTSIDE RECORDS SUMMARY | 2024-11-11 15:34 | XMS_ITS | Encounter Summary ---
Author Organization [facility] and [facility] Address [address] [place] [address] Care Team Providers Care Jewelry Technician Name Role Phone Caitlyn Bowie MD Primary Care Provider +1- [phone] Encounter Details Date Type Department Care Team (Late st Contact Info) Description 04/20/2023 Scanned Document INTERFACE DEFAULT [address] [place] [address] System, Provider Not In Social History Tobacco [...] [facility] 240 [facility] Building [address] [place], [place] [address] Ronald Mills MD [address] [place] [address] [address] [place] [address] documented as of this encounter [...] documented as of this encounter Care Teams Jewelry Technician Relationship Specialty Start Date End Date Caitlyn Bowie MD [address] [address] PCP - General Internal Medicine 05/06/21 documented as of this encounter
--- OUTSIDE RECORDS SUMMARY | 2024-11-11 15:34 | XMS_ITS | Encounter Summary ---
Author Organization [facility] and [facility] Address [address] [place] [address] Care Team Providers Care Radar Engineering Teacher Name Role Phone Caitlyn Bowie MD Primary Care Provider +1- [phone] Encounter Details Date Type Department Care Team (Late st Contact Info) Description 04/28/2022 Scanned Document INTERFACE DEFAULT [address] [place] [address] System, Provider Not In Social History Tobacco [...] [facility] 240 [facility] Building [address] [place], [place] [address] Ronald Mills MD [address] [place] [address] [address] [place] [address] documented as of this encounter [...] documented as of this encounter Care Teams Radar Engineering Teacher Relationship Specialty Start Date End Date Caitlyn Bowie MD [facility] [address] [address] PCP - General Internal Medicine 05/06/21 documented as of this encounter
--- OUTSIDE RECORDS SUMMARY | 2024-11-11 15:34 | XMS_ITS | Encounter Summary ---
Author Organization [facility] and [facility] Address [address] [place] [address] Care Team Providers Care Surveillance Supervisor Name Role Phone Caitlyn Bowie MD Primary Care Provider +1- [phone] Encounter Details Date Type Department Care Team (Late st Contact Info) Description 05/17/2023 Scanned Document INTERFACE DEFAULT [address] [place] [address] System, Provider Not In Social History Tobacco [...] [facility] 240 [facility] Building [address] [place], [place] [address] Ronald Mills MD [address] [place] [address] [address] [place] [address] documented as of this encounter [...] documented as of this encounter Care Teams Surveillance Supervisor Relationship Specialty Start Date End Date Caitlyn Bowie MD [address] [address] PCP - General Internal Medicine 05/06/21 documented as of this encounter
--- OUTSIDE RECORDS SUMMARY | 2024-11-11 15:34 | XMS_ITS | Encounter Summary ---
Author Organization [facility] and [facility] Address [address] [place] [place] [address] Care Team Providers Care Information Services Manager Name Role Phone Caitlyn Bowie MD Primary Care Provider +1- [phone] Encounter Details Date Type Department Care Team (Late st Contact Info) Description 10/24/2022 Scanned Document INTERFACE DEFAULT [address] [place] [address] System, Provider Not In Social History Tobacco [...] [facility] 240 [facility] Building [address] [place], [place] [address] Ronald Mills MD [address] [place] [address] [address] [place] [address] documented as of this encounter [...] MD [facility] [address] [address] PCP - General Internal Medicine 05/06/21 documented as of this encounter
--- OUTSIDE RECORDS SUMMARY | 2024-11-11 15:35 | XMS_ITS | Encounter Summary ---
Author Organization [facility] and [facility] Address [address] [place] [address] Care Team Providers Care Roving Weight Gauger Name Role Phone Caitlyn Bowie MD Primary Care Provider +1- [phone] Encounter Details Date Type Department Care Team (Late Contact Info) Description 04/12/2022 Scanned Document [facility] Health Information Management [address] [place] [address] External, Provider Social History Tobacco Use Types [...] [facility] [address] [facility] Building [address] [place], [place] [address] Ronald Mills MD [address] [place] [address] [address] [place] [address] documented as of this encounter [...] documented as of this encounter Care Teams Roving Weight Gauger Relationship Specialty Start Date End Date Caitlyn Bowie MD [address] [address] PCP - General Internal Medicine 05/06/21 documented as of this encounter
--- OUTSIDE RECORDS SUMMARY | 2024-11-11 15:35 | XMS_ITS | Encounter Summary ---
Author Organization [facility] and [facility] Address [address] [place] [address] Care Team Providers Care Pulp House Supervisor Name Role Phone Caitlyn Bowie MD Primary Care Provider +1- [phone] Encounter Details Date Type Department Care Team (Late st Contact Info) Description 01/17/2019 Scanned Document [facility] Health Information Management [address] [place] [address] External, Provider Social History Tobacco Use Types [...] [facility] 240 [facility] Building [address] [place] [address] Ronald Mills MD [address] [place] [address] [address]1 [place] [address] documented as of this encounter [...] [facility] 1 [place] [address] PCP - General Internal Medicine 05/06/21 Henry Kelly MD Pulmonary Department 175 [facility], [address] [place] [address] Physician Pulmonary Disease 09/06/17 06/22/20 documented as of this encounter
--- OUTSIDE RECORDS SUMMARY | 2024-11-11 15:35 | XMS_ITS | Encounter Summary ---
Author Organization [facility] and [facility] Address [address] [place] [address] Care Team Providers Care Aircraft Load Controller Name Role Phone Caitlyn Bowie MD Primary Care Provider +1- [phone] Encounter Details Date Type Department Care Team (Late st Contact Info) Description 02/08/2016 Scanned Document [facility] Health Information Management [address] [place] [address] External, Provider Social History Tobacco Use Types [...] [facility] 240 [facility] Building [address] [place], [place] [address] Ronald Mills MD 240 [facility] A1 [place] [address] documented as of this encounter Visit Diagnoses Not on filedocumented in this encounter Additional Health Concerns Infection Onset Date Last Indicated Resolved Time COVID-19 03/05/2022 03/05/2022 03/15/2022 7:18 PM EDT documented as of this encounter Care Teams Aircraft Load Controller Relationship Specialty Start Date End Date Caitlyn Bowie MD 3400 [facility] 1 [place] [address] PCP - General Internal Medicine 05/06/21 Henry Kelly MD Pulmonary Department 175 [facility], [address] [place] [address] Physician Pulmonary Disease 09/06/17 06/22/20 documented as of this encounter
--- OUTSIDE RECORDS SUMMARY | 2024-11-11 15:35 | XMS_ITS | Encounter Summary ---
Author Organization [facility] Address [address] [place] [address] Care Team Providers Care Engraver Machine Name Role Phone Caitlyn Bowie MD Primary Care Provider +1- [phone] Encounter Details Date Type Department Care Team (Late st Contact Info) Description 01/09/2019 Scanned Document [facility] Health Information Management [address] [place] [address] External, Provider Social History Tobacco Use Types [...] [facility] 240 [facility] Building [address] [place] [address] Ronald Mills MD [address] [place] [address] [address]1 [place] [address] documented as of this encounter [...] as of this encounter Care Teams Engraver Machine Relationship Specialty Start Date End Date Caitlyn Bowie MD 3400 [facility] 1 [place] [address] PCP - General Internal Medicine 05/06/21 Henry Kelly MD Pulmonary Department 175 [facility], [address] [place] [address] Physician Pulmonary Disease 09/06/17 06/22/20 documented as of this encounter
--- OUTSIDE RECORDS SUMMARY | 2024-11-11 15:35 | XMS_ITS | Encounter Summary ---
Author Organization [facility] Address [address] [place] [address] Care Team Providers Care New Car Inspector Name Role Phone Caitlyn Bowie MD Primary Care Provider +1- [phone] Encounter Details Date Type Department Care Team (Late st Contact Info) Description 01/26/2019 Scanned Document [facility] Health Information Management [address] [place] [address] External, Provider Social History Tobacco Use Types [...] [facility] at [facility] 240 [facility] Building [address] [place] [address] Ronald Mills MD [address] [place] [address] [address]1 [place] [address] documented as of this encounter [...] documented as of this encounter Care Teams New Car Inspector Relationship Specialty Start Date End Date Caitlyn Bowie MD 3400 [facility] 1 [place] [address] PCP - General Internal Medicine 05/06/21 Henry Kelly MD Pulmonary Department 175 [facility], [address] [place] [address] Physician Pulmonary Disease 09/06/17 06/22/20 documented as of this encounter
--- OUTSIDE RECORDS SUMMARY | 2024-11-11 15:35 | XMS_ITS | Encounter Summary ---
Author Organization [facility] Address [address] [place] [address] Care Team Providers Care Yard Motor Operator Name Role Phone Caitlyn Bowie MD Primary Care Provider +1- [phone] Encounter Details Date Type Department Care Team (Late st Contact Info) Description 03/20/2023 Scanned Document [facility] Radiology [address] [place] [address] Caitlyn Bowie MD [address]00 [place] [address] Social History Tobacco Use Types Packs/Day Years [...] on filedocumented in this encounter Care Teams Yard Motor Operator Relationship Specialty Start Date End Date Caitlyn Bowie MD [address]00 [place] [address] PCP - General Internal Medicine 03/20/23 documented as of this encounter
--- OUTSIDE RECORDS SUMMARY | 2024-11-11 15:35 | XMS_ITS | Encounter Summary ---
Author Organization [facility] Address [address] [place] [address] Phone Care Team Providers Care Porcelain Enameler Name Role Phone Caitlyn Bowie MD Primary Care Provider +1- [phone] Encounter Details Date Type Department Care Team (Late st Contact Info) Description 10/01/2024 Documentation Only [facility] [address] [place] [address] [place], [place] [address] [place] [address] Social History Tobacco Use Types [...] Visit [facility] [address] [place] [address] Rubén Ashraf MD [address] [place] [address] [place] [address] documented as of this encounter Visit Diagnoses Not on filedocumented in this encounter Care Teams Porcelain Enameler Relationship Specialty Start Date End Date Caitlyn Bowie MD [address] [place], [place] PCP - General Internal Medicine 09/24/24 documented as of this encounter
--- OUTSIDE RECORDS SUMMARY | 2024-11-11 15:35 | XMS_ITS | Encounter Summary ---
Author Organization [facility] and [facility] Address [address] [place] [address] Care Team Providers Care Structural Manager Name Role Phone Caitlyn Bowie MD Primary Care Provider +1- [phone] Encounter Details Date Type Department Care Team (Late st Contact Info) Description 01/08/2019 Scanned Document [facility] Health Information Management [address] [place] [address] External, Provider Social History Tobacco Use Types [...] [facility] at [facility] 240 [facility] Building [address] [place] [address] Ronald Mills MD [address] [place] [address] [address]1 [place] [address] documented as of this encounter [...] as of this encounter Care Teams Structural Manager Relationship Specialty Start Date End Date Caitlyn Bowie MD 3400 [facility] 1 [place] [address] PCP - General Internal Medicine 05/06/21 Henry Kelly MD Pulmonary Department 175 [facility], [address] [place] [address] Physician Pulmonary Disease 09/06/17 06/22/20 documented as of this encounter
--- OUTSIDE RECORDS SUMMARY | 2024-11-11 15:35 | XMS_ITS | Encounter Summary ---
Author Organization [facility] and [facility] Address [address] [place] [address] Care Team Providers Care News Intern Name Role Phone Caitlyn Bowie MD Primary Care Provider +1- [phone] Encounter Details Date Type Department Care Team (Late st Contact Info) Description 01/28/2019 Scanned Document [facility] Health Information Management [address] [place] [address] External, Provider Social History Tobacco Use Types [...] [facility] 240 [facility] Building [address] [place] [address] Ronald Mills MD [address] [place] [address] [address]1 [place] [address] documented as of this encounter Visit Diagnoses Not on filedocumented in this encounter Additional Health Concerns Infection Onset Date Last Indicated Resolved Time COVID-19 03/05/2022 03/05/2022 03/15/2022 7:18 PM EDT Assessment Noted Time PHQ-9 Depression Total Score: 2 11/07/19 19 2:06 PM EDT documented as of this encounter Care Teams News Intern Relationship Specialty Start Date End Date Caitlyn Bowie MD 3400 [facility] 1 [place] [address] PCP - General Internal Medicine 05/06/21 Henry Kelly MD Pulmonary Department 175 [facility], [address] [place] [address] Physician Pulmonary Disease 09/06/17 06/22/20 documented as of this encounter
--- OUTSIDE RECORDS SUMMARY | 2024-11-11 15:35 | XMS_ITS | Encounter Summary ---
Author Organization [facility] and [facility] Address [address] [place] [address] Care Team Providers Care Roving Court Reporter Name Role Phone Caitlyn Bowie MD Primary Care Provider +1- [phone] Encounter Details Date Type Department Care Team (Late st Contact Info) Description 12/27/2018 Scanned Document [facility] Health Information Management [address] [place] [address] External, Provider Social History Tobacco Use Types [...] [facility] [address] [facility] [address] [place] [address] Ronald Mills MD [address] [place] [address] [address] [place] [address] documented as of this encounter [...] as of this encounter Care Teams Roving Court Reporter Relationship Specialty Start Date End Date Caitlyn Bowie MD 3400 [facility] 1 [place] [address] PCP - General Internal Medicine 05/06/21 Henry Kelly MD Pulmonary Department 175 [facility], [address] [place] [address] Physician Pulmonary Disease 09/06/17 06/22/20 documented as of this encounter
--- OUTSIDE RECORDS SUMMARY | 2024-11-11 15:35 | XMS_ITS | Encounter Summary ---
Author Organization [facility] Address [address] [place] [address] Care Team Providers Care Airline Manager Name Role Phone Pcp, No Primary Care Provider Brennan Mario MD Primary Care Provider [phone] Caitlyn Bowie MD Primary Care Provider +1- [phone] Encounter Details Date Type Department Care Team (Late st Contact Info) Description 01/04/2022 Scanned Document [facility] Neurology Ophthalmology [address] [address] Yary Whitten DO [address] [place] [address] Social History Tobacco Use Types Packs/Day [...] on filedocumented in this encounter Care Teams Airline Manager Relationship Specialty Start Date End Date Pcp, No PCP - General General Medicine 10/04/21 07/18/22 Brennan Burnett MD [address] [place] [address] PCP - General 07/19/22 03/19/23 Caitlyn Bowie MD [address]00 [place] [address] PCP - General Internal Medicine 03/20/23 documented as of this encounter
--- OUTSIDE RECORDS SUMMARY | 2024-11-11 15:35 | XMS_ITS | Encounter Summary ---
Author Organization [facility] and [facility] Address [address] [place] [address] Care Team Providers Care Oil Recovery Operator Name Role Phone Caitlyn Bowie MD Primary Care Provider +1- [phone] Encounter Details Date Type Department Care Team (Late st Contact Info) Description 04/14/2022 Scanned Document INTERFACE DEFAULT [address] [place] [address] System, Provider Not In Social History Tobacco [...] [facility] [address] [facility] Building [address] [place] [address] Ronald Mills MD [address] [place] [address] [address] [place] [address] documented as of this encounter Visit Diagnoses Not on filedocumented in this encounter Additional Health Concerns Assessment Noted Time PHQ-9 Depression Total Score: 2 11/07/19 19 2:06 PM EDT documented as of this encounter Care Teams Oil Recovery Operator Relationship Specialty Start Date End Date Caitlyn Bowie MD [address] [address] PCP - General Internal Medicine 05/06/21 documented as of this encounter
--- OUTSIDE RECORDS SUMMARY | 2024-11-11 15:35 | XMS_ITS | Clinical Summary ---
Author Organization [facility] Address [address] [place] [address] Care Team Providers Care Lead Sql Developer Name Role Phone Caitlyn Bowie Primary Care Provider [phone] Allergies Active Allergy Reactions Criticality Noted Date [...] Throat tightness Throat tightness Throat tightness Ipratropium [place] Unknown Medium 12/18/2021 Isosorbide Mononitrate 11/23/2020 Other [...] topic Insurance MEDICARE PART A & B [facility] Care Teams Lead Sql Developer Relationship Specialty Start Date End Date Caitlyn Bowie [address] [place] [address] PCP - General Internal Medicine 07/18/22
--- OUTSIDE RECORDS SUMMARY | 2024-11-11 15:35 | XMS_ITS | Encounter Summary ---
Author Organization [facility] and [facility] Address [address] [place] [address] Care Team Providers Care Commercial Development Manager Name Role Phone Caitlyn Bowie MD Primary Care Provider [phone]- [phone] Encounter Details Date Type Department Care Team (Late st Contact Info) Description 09/15/2024 Scanned Document INTERFACE DEFAULT [address] [place] [address] System, Provider Not In Social History Tobacco [...] [facility] 240 [facility] Building [address] [place], [place] [address] Ronald Mills MD [address] [place] [address] [address] [place] [address] documented as of this encounter [...] as of this encounter Care Teams Commercial Development Manager Relationship Specialty Start Date End Date Caitlyn Bowie MD [address] [address] PCP - General Internal Medicine 05/06/21 documented as of this encounter
--- OUTSIDE RECORDS SUMMARY | 2024-11-11 15:35 | XMS_ITS | Encounter Summary ---
Author Organization [facility] and [facility] Address [address] [place] [address] Care Team Providers Care Devops Consultant Name Role Phone Caitlyn Bowie MD Primary Care Provider +1- [phone] Encounter Details Date Type Department Care Team (Late st Contact Info) Description 11/03/2015 Scanned Document [facility] Health Information Management [address] [place] [address] External, Provider Social History Tobacco Use Types [...] [facility] 240 [facility] Building [address] [place], [place] [address] Ronald Mills MD 240 [facility] [address] [place] [address] documented as of this encounter Procedures Procedure Name Priority Date/Time Associated Diagnosis Comments US RESULT SCAN Routine 11/03/2015 documented in this encounter Results * US Result Scan (11/03/2015) us Provider External IMG SCAN REPORTS Edited Result - Final [facility] [place], [place], [facility] documented in this encounter Visit Diagnoses Not on filedocumented in this encounter Additional Health Concerns Infection Onset Date Last Indicated Resolved Time COVID-19 03/05/2022 03/05/2022 03/15/2022 7:18 PM EDT documented as of this encounter Care Teams Devops Consultant Relationship Specialty Start Date End Date Caitlyn Bowie MD 3400 [facility] Max 1 [place] [address] PCP - General Internal Medicine 05/06/21 Henry Kelly MD Pulmonary Department 175 [facility], [address] [place] [address] Physician Pulmonary Disease 09/06/17 06/22/20 documented as of this encounter
--- OUTSIDE RECORDS SUMMARY | 2024-11-11 15:35 | XMS_ITS | Encounter Summary ---
Author Organization [facility] Address [address] [place] [address] Care Team Providers Care Envelope Fold Operator Name Role Phone Caitlyn Bowie MD Primary Care Provider +1- [phone] Encounter Details Date Type Department Care Team (Late st Contact Info) Description 09/09/2024 Scanned Document INTERFACE DEFAULT [address] [place] [address] System, Provider Not In Social History Tobacco [...] [facility] 240 [facility] Building [address] [place], [place] [address] Ronald Mills MD [address] [place] [address] [address] [place] [address] documented as of this encounter [...] as of this encounter Care Teams Envelope Fold Operator Relationship Specialty Start Date End Date Caitlyn Bowie MD [address] [address] PCP - General Internal Medicine 05/06/21 documented as of this encounter
--- OUTSIDE RECORDS SUMMARY | 2024-11-11 15:35 | XMS_ITS | Encounter Summary ---
Author Organization [facility] and [facility] Address [address] [place] [address] Care Team Providers Care Production Line Welder Name Role Phone Caitlyn Bowie MD Primary Care Provider +1- [phone] Encounter Details Date Type Department Care Team (Late st Contact Info) Description 02/06/2019 Scanned Document [facility] Health Information Management [address] [place] [address] External, Provider Social History Tobacco Use Types [...] [facility] 240 [facility] Building [address] [place] [address] Roanld Mills MD [address] [place] [address] [address] [place] [address] documented as of this encounter [...] of this encounter Care Teams Production Line Welder Relationship Specialty Start Date End Date Caitlyn Bowie MD 3400 [facility] 1 [place] [address] PCP - General Internal Medicine 05/06/21 Henry Kelly MD Pulmonary Department 175 [facility], [address] [place] [address] Physician Pulmonary Disease 09/06/17 06/22/20 documented as of this encounter
--- OUTSIDE RECORDS SUMMARY | 2024-11-11 15:35 | XMS_ITS | Encounter Summary ---
Author Organization [facility] and [facility] Address [address] [place] [address] Care Team Providers Care Intervention Specialist Name Role Phone Caitlyn Bowie MD Primary Care Provider +1- [phone] Encounter Details Date Type Department Care Team (Late st Contact Info) Description 01/08/2022 Scanned Document INTERFACE DEFAULT [address] [place] [address] System, Provider Not In Social History Tobacco [...] [facility] 240 [facility] Building [address] [place], [place] [address] Ronald Mills MD [address] [place] [address] [address] [place] [address] documented as of this encounter [...] documented as of this encounter Care Teams Intervention Specialist Relationship Specialty Start Date End Date Caitlyn Bowie MD [address] [address] PCP - General Internal Medicine 05/06/21 documented as of this encounter
--- OUTSIDE RECORDS SUMMARY | 2024-11-11 15:35 | XMS_ITS | Encounter Summary ---
Author Organization [facility] and [facility] Address [address] [place] [address] Care Team Providers Care Rubber Mill Operator Name Role Phone Caitlyn Bowie MD Primary Care Provider +1- [phone] Encounter Details Date Type Department Care Team (Late st Contact Info) Description 03/12/2019 Scanned Document [facility] Health Information Management [address] [place] [address] External, Provider Social History Tobacco Use Types [...] [facility] 240 [facility] Building [address] [place] [address] Ronald Mills MD [address] [place] [address] [address] [place] [address] documented as of this encounter [...] as of this encounter Care Teams Rubber Mill Operator Relationship Specialty Start Date End Date Caitlyn Bowie MD 3400 [facility] 1 [place] [address] PCP - General Internal Medicine 05/06/21 Henry Kelly MD Pulmonary Department 175 [facility], [address] [place] [address] Physician Pulmonary Disease 09/06/17 06/22/20 documented as of this encounter
--- OUTSIDE RECORDS SUMMARY | 2024-11-11 15:35 | XMS_ITS | Encounter Summary ---
Author Organization [facility] and [facility] Address [address] [place] [address] Care Team Providers Care Hearing Aid Specialist Name Role Phone Caitlyn Bowie MD Primary Care Provider +1- [phone] Encounter Details Date Type Department Care Team (Late st Contact Info) Description 04/23/2024 Scanned Document INTERFACE DEFAULT [address] [place] [address] System, Provider Not In Social History Tobacco [...] [facility] 240 [facility] Building [address] [place], [place] [address] Ronald Mills MD [address] [place] [address] [address] [place] [address] documented as of this encounter [...] as of this encounter Care Teams Hearing Aid Specialist Relationship Specialty Start Date End Date Caitlyn Bowie MD [address] [address] PCP - General Internal Medicine 05/06/21 documented as of this encounter
--- OUTSIDE RECORDS SUMMARY | 2024-11-11 15:35 | XMS_ITS | Encounter Summary ---
Author Organization [facility] Address [address] [place] [address] Care Team Providers Care Medical Asst Name Role Phone Caitlyn Bowie MD Primary Care Provider +1- [phone] Encounter Details Date Type Department Care Team (Late st Contact Info) Description 01/30/2019 Scanned Document [facility] Health Information Management [address] [place] [address] External, Provider Social History Tobacco Use Types [...] at [facility] 240 [facility] Building [address] [place] [address] Rnoald Mills MD [address] [place] [address] [address] [place] [address] documented as of this encounter [...] 3400 [facility] 1 [place] [address] PCP - General Internal Medicine 05/06/21 Henry Kelly MD Pulmonary Department 175 [facility], [address] [place] [address] Physician Pulmonary Disease 09/06/17 06/22/20 documented as of this encounter
--- OUTSIDE RECORDS SUMMARY | 2024-11-11 15:35 | XMS_ITS | Encounter Summary ---
Author Organization [facility] and [facility] Address [address] [place] [address] Care Team Providers Care Deportation Examiner Name Role Phone Caitlyn Bowie MD Primary Care Provider +1- [phone] Encounter Details Date Type Department Care Team (Late st Contact Info) Description 01/02/2019 Scanned Document [facility] Health Information Management [address] [place] [address] External, Provider Social History Tobacco Use Types [...] [facility] 240 [facility] Building [address] [place] [address] Ronald Mills MD [address] [place] [address] [address] [place] [address] documented as of this encounter [...] documented as of this encounter Care Teams Deportation Examiner Relationship Specialty Start Date End Date Caitlyn Bowie MD [address] [facility] 1 [place] [address] PCP - General Internal Medicine 05/06/21 Henry Kelly MD Pulmonary Department 175 [facility], [address] [place] [address] Physician Pulmonary Disease 09/06/17 06/22/20 documented as of this encounter
--- OUTSIDE RECORDS SUMMARY | 2024-11-11 15:35 | XMS_ITS | Encounter Summary ---
Author Organization [facility] Address [address] [place] [address] Care Team Providers Care Canning Machine Operator Name Role Phone Caitlyn Bowie MD Primary Care Provider +1- [phone] Encounter Details Date Type Department Care Team (Late st Contact Info) Description 09/23/2024 Scanned Document INTERFACE DEFAULT [address] [place] [address] System, Provider Not In Social History Tobacco [...] [facility] 240 [facility] Building [address] [place], [place] [address] Ronald Mills MD [address] [place] [address] [address] [place] [address] documented as of this encounter [...] documented as of this encounter Care Teams Canning Machine Operator Relationship Specialty Start Date End Date Caitlyn Bowie MD [address] [address] PCP - General Internal Medicine 05/06/21 documented as of this encounter
--- OUTSIDE RECORDS SUMMARY | 2024-11-11 15:35 | XMS_ITS | Encounter Summary ---
Author Organization [facility] and [facility] Address [address] [place] [address] Care Team Providers Care Receiving Team Member Name Role Phone Caitlyn Bowie MD Primary Care Provider +1- [phone] Encounter Details Date Type Department Care Team (Late st Contact Info) Description 04/18/2022 Scanned Document INTERFACE DEFAULT [address] [place] [address] System, Provider Not In Social History Tobacco [...] [facility] Building [address] [place] [address] Ronald Mills MD [address] [place] [address] [address] [place] [address] documented as of this encounter Visit Diagnoses Not on filedocumented in this encounter Additional Health Concerns Assessment Noted Time PHQ-9 Depression Total Score: 2 11/07/19 19 2:06 PM EDT documented as of this encounter Care Teams Receiving Team Member Relationship Specialty Start Date End Date Caitlyn Bowie MD [address] [address] PCP - General Internal Medicine 05/06/21 documented as of this encounter
--- OUTSIDE RECORDS SUMMARY | 2024-11-11 15:35 | XMS_ITS | Encounter Summary ---
Author Organization [facility] and [facility] Address [address] [place] [address] Care Team Providers Care Director Of Radio Services Name Role Phone Caitlyn Bowie MD Primary Care Provider +1- [phone] Encounter Details Date Type Department Care Team (Late st Contact Info) Description 08/08/2024 Scanned Document INTERFACE DEFAULT [address] [place] [address] System, Provider Not In Social History Tobacco [...] [facility] 240 [facility] Building [address] [place], [place] [address] Ronald Mills MD [address] [place] [address] [address] [place] [address] documented as of this encounter [...] of this encounter Care Teams Director Of Radio Services Relationship Specialty Start Date End Date Caitlyn Bowie MD [address] [address] PCP - General Internal Medicine 05/06/21 documented as of this encounter
--- OUTSIDE RECORDS SUMMARY | 2024-11-11 15:35 | XMS_ITS | Encounter Summary ---
Author Organization [facility] Address [address] [place] [address] Care Team Providers Care Casework Specialist Name Role Phone Caitlyn Bowie MD Primary Care Provider +1- [phone] Encounter Details Date Type Department Care Team (Late st Contact Info) Description 12/29/2021 Telephone [facility] at [address] - [address] [address] Ronald Mills MD [address] [place] [address] Social History Tobacco Use Types Packs/Day [...] not sure where the blood's coming from. [phone] documented in this encounter Plan of Treatment Upcoming Encounters Date Type Department Care Team (Late st Contact Info) Description 04/25/2025 4:00 PM EDT Telemedicine [facility] 240 [facility] Building [address] [place] [address] Ronald Mills MD 240 [facility] A1 [place] [address] documented as of this encounter Visit Diagnoses Not on filedocumented in this encounter Additional Health Concerns Infection Onset Date Last Indicated Resolved Time COVID-19 03/05/2022 03/05/2022 03/15/2022 7:18 PM EDT Assessment Noted Time PHQ-9 Depression Total Score: 2 11/07/19 19 2:06 PM EDT documented as of this encounter Care Teams Casework Specialist Relationship Specialty Start Date End Date Caitlyn Bowie MD [address] [address] PCP - General Internal Medicine 05/06/21 documented as of this encounter
--- OUTSIDE RECORDS SUMMARY | 2024-11-11 15:35 | XMS_ITS | Encounter Summary ---
Author Organization [facility] and [facility] Address [address] [place] [address] Care Team Providers Care Tube Station Attendant Name Role Phone Caitlyn Bowie MD Primary Care Provider +1- [phone] Encounter Details Date Type Department Care Team (Late st Contact Info) Description 01/28/2019 Scanned Document Cardiovascular Medicine at [address] [place] [address] Cristian Arreguin MBBS [address] [place] [address] Social History Tobacco Use Types [...] PM EDT Telemedicine Cancer Center at [address] [place] [address] Ronald Mills MD [address] [place] [address] [address] [place] [address] documented as of this encounter Visit Diagnoses Not on filedocumented in this encounter Additional Health Concerns Infection Onset Date Last Indicated Resolved Time COVID-19 03/05/2022 03/05/2022 03/15/2022 7:18 PM EDT Assessment Noted Time PHQ-9 Depression Total Score: 2 11/07/19 19 2:06 PM EDT documented as of this encounter Care Teams Tube Station Attendant Relationship Specialty Start Date End Date Caitlyn Bowie MD 3400 [facility] 1 [place] [address] PCP - General Internal Medicine 05/06/21 Henry Kelly MD Pulmonary Department [address] [place] [address], [address] [place] [address] Physician Pulmonary Disease 09/06/17 06/22/20 documented as of this encounter
--- OUTSIDE RECORDS SUMMARY | 2024-11-11 15:35 | XMS_ITS | Encounter Summary ---
Author Organization [facility] Address [address] [place] [address] Care Team Providers Care Strategy Specialist Name Role Phone Caitlyn Bowie MD Primary Care Provider +1- [phone] Encounter Details Date Type Department Care Team (Late st Contact Info) Description 12/03/2015 Scanned Document [facility] Health Information Management [address] [place] [address] External, Provider Social History Tobacco Use Types [...] [facility] 240 [facility] Building [address] [place], [place] [address] Ronald Mills MD 240 [facility] [address] [place] [address] documented as of this encounter Procedures Procedure Name Priority Date/Time Associated Diagnosis Comments LAB SCAN Routine 12/03/2015 documented in this encounter Results * Lab Scan (12/03/2015) Blood specimen (specimen) us Provider External LAB BLOOD ORDERABLES Edited Re sult - Final [facility] documented in this encounter Visit Diagnoses Not on filedocumented in this encounter Additional Health Concerns Infection Onset Date Last Indicated Resolved Time COVID-19 03/05/2022 03/05/2022 03/15/2022 7:18 PM EDT documented as of this encounter Care Teams Strategy Specialist Relationship Specialty Start Date End Date Caitlyn Bowie MD [address]00 [facility] 1 [place] [address] PCP - General Internal Medicine 05/06/21 Henry Kelly MD Pulmonary Department 175 [facility], [address] [place] [address] Physician Pulmonary Disease 09/06/17 06/22/20 documented as of this encounter
--- OUTSIDE RECORDS SUMMARY | 2024-11-11 15:35 | XMS_ITS | Encounter Summary ---
Author Organization [facility] Address [address] [place] [address] Care Team Providers Care Remedy Developer Name Role Phone Caitlyn Bowie MD Primary Care Provider +1- [phone] Encounter Details Date Type Department Care Team (Late st Contact Info) Description 04/11/2019 Scanned Document [facility] Health Information Management [address] [place] [address] External, Provider Social History Tobacco Use Types [...] [facility] 240 [facility] Building [address] [place] [address] Ronald Mills MD [address] [place] [address] [address] [place] [address] documented as of this encounter [...] documented as of this encounter Care Teams Remedy Developer Relationship Specialty Start Date End Date Caitlyn Bowie MD 3400 [facility] 1 [place] [address] PCP - General Internal Medicine 05/06/21 Henry Kelly MD Pulmonary Department 175 [facility], [address] [place] [address] Physician Pulmonary Disease 09/06/17 06/22/20 documented as of this encounter
--- OUTSIDE RECORDS SUMMARY | 2024-11-11 15:35 | XMS_ITS | Encounter Summary ---
Author Organization [facility] Address [address] [place] [address] Care Team Providers Care Credit Collections Analyst Name Role Phone Caitlyn Bowie MD Primary Care Provider +1- [phone] Reason for Visit * Reason Comments Results Encounter Details Date Type Department Care Team (Late st Contact Info) Description 03/15/2022 Telephone [facility] [address] [address] Ronald Mills MD [address] [place] [phone] Results Social History Tobacco Use Types [...] [facility] [address] [facility] [address] [place], [place] [id number] Ronald Mills MD 240 [facility] [address] [place] [phone] documented as of this encounter Visit Diagnoses Not on filedocumented in this encounter Additional Health Concerns Infection Onset Date Last Indicated Resolved Time COVID-19 03/05/2022 03/05/2022 03/15/2022 7:18 PM EDT Assessment Noted Time PHQ-9 Depression Total Score: 2 11/07/19 19 2:06 PM EDT documented as of this encounter Care Teams Credit Collections Analyst Relationship Specialty Start Date End Date Caitlyn Bowie MD [address] [address] PCP - General Internal Medicine 05/06/21 documented as of this encounter
--- OUTSIDE RECORDS SUMMARY | 2024-11-11 15:35 | XMS_ITS | Encounter Summary ---
Author Organization [facility] and [facility] Address [address] [place] [phone] Care Team Providers Care Senior Instructional Designer Name Role Phone Caitlyn Bowie MD Primary Care Provider +1- [phone] Encounter Details Date Type Department Care Team (Late st Contact Info) Description 04/16/2022 Scanned Document INTERFACE DEFAULT [address] [place] [address] System, Provider Not In Social History Tobacco [...] – [facility] 240 [facility] Building [address] [place], [place] [id number] Ronald Mills MD [address] [place] [address] [address] [place] [address] documented as of this encounter [...] as of this encounter Care Teams Senior Instructional Designer Relationship Specialty Start Date End Date Caitlyn Bowie MD [address] [address] PCP - General Internal Medicine 05/06/21 documented as of this encounter
--- OUTSIDE RECORDS SUMMARY | 2024-11-11 15:35 | XMS_ITS | Encounter Summary ---
Author Organization [facility] Address [address] [place] [phone] Care Team Providers Care Cardiac Monitor Name Role Phone Caitlyn Bowie MD Primary Care Provider +1- [phone] Encounter Details Date Type Department Care Team (Late st Contact Info) Description 04/19/2024 Scanned Document INTERFACE DEFAULT [address] [place] [address] System, Provider Not In Social History Tobacco [...] [facility] 240 [facility] Building [address] [place], [place] [phone] Ronald Mills MD [address] [place] [address] [address] [place] [address] documented as of this encounter [...] as of this encounter Care Teams Cardiac Monitor Relationship Specialty Start Date End Date Caitlyn Bowie MD [address] [address] PCP - General Internal Medicine 05/06/21 documented as of this encounter
--- OUTSIDE RECORDS SUMMARY | 2024-11-11 15:35 | XMS_ITS | Encounter Summary ---
Author Organization [facility] Address [address] [place] [address] Care Team Providers Care Personalized Living Manager Nurse Name Role Phone Caitlyn Bowie MD Primary Care Provider +1- [phone] Encounter Details Date Type Department Care Team (Late st Contact Info) Description 11/04/2015 Scanned Document [facility] Health Information Management [address] [place] [address] External, Provider Social History Tobacco Use Types [...] [facility] 240 [facility] Building [address] [place], [place] [phone] Ronald Mills MD 240 [facility] [address] [place] [address] documented as of this encounter Procedures Procedure Name Priority Date/Time Associated Diagnosis Comments NUC MED/PET RESULT SCAN Routine 11/04/2015 documented in this encounter Results * Nuc Med/PET Result Scan (11/04/2015) us Provider External IMG SCAN REPORTS Edited Result - Final [facility] [place], [place], [facility] documented in this encounter Visit Diagnoses Not on filedocumented in this encounter Additional Health Concerns Infection Onset Date Last Indicated Resolved Time COVID-19 03/05/2022 03/05/2022 03/15/2022 7:18 PM EDT documented as of this encounter Care Teams Personalized Living Manager Nurse Relationship Specialty Start Date End Date Caitlyn Bowie MD 3400 [facility] [address] [place] [address] PCP - General Internal Medicine 05/06/21 Henry Kelly MD Pulmonary Department 175 [facility], [address] [place] [address] Physician Pulmonary Disease 09/06/17 06/22/20 documented as of this encounter
--- OUTSIDE RECORDS SUMMARY | 2024-11-11 15:35 | XMS_ITS | Encounter Summary ---
Author Organization [facility] Address [address] [place] [phone] Care Team Providers Care Diploma Dental Assistant Name Role Phone Caitlyn Bowie MD Primary Care Provider +1- [phone] Encounter Details Date Type Department Care Team (Late st Contact Info) Description 03/02/2022 Scanned Document [facility] Health Information Management [address] [place] [address] External, Provider Social History Tobacco Use Types [...] at [facility] 240 [facility] Building [address] [place], [place] [phone] Ronald Mills MD [address] [place] [address] [address] [place] [address] documented as of this encounter Visit Diagnoses Not on filedocumented in this encounter Additional Health Concerns Infection Onset Date Last Indicated Resolved Time COVID-19 03/05/2022 03/05/2022 03/15/2022 7:18 PM EDT Assessment Noted Time PHQ-9 Depression Total Score: 2 11/07/19 19 2:06 PM EDT documented as of this encounter Care Teams Diploma Dental Assistant Relationship Specialty Start Date End Date Caitlyn Bowie MD [address] [address] PCP - General Internal Medicine 05/06/21 documented as of this encounter
--- OUTSIDE RECORDS SUMMARY | 2024-11-11 15:35 | XMS_ITS | Encounter Summary ---
Author Organization [facility] and [facility] Address [address] [place] [phone] Care Team Providers Care Surveyor Chain Helper Name Role Phone Caitlyn Bowie MD Primary Care Provider +1- [phone] Encounter Details Date Type Department Care Team (Late st Contact Info) Description 12/28/2018 Scanned Document [facility] Health Information Management [address] [place] [address] External, Provider Social History Tobacco Use Types [...] [facility] at [facility] 240 [facility] Building [address] [place] [address] Ronald Mills MD [address] [place] [address] [address] [place] [address] documented as of this encounter [...] as of this encounter Care Teams Surveyor Chain Helper Relationship Specialty Start Date End Date Caitlyn Bowie MD 3400 [facility] [address] [place] [address] PCP - General Internal Medicine 05/06/21 Henry Kelly MD Pulmonary Department 175 [facility], [address] [place] [address] Physician Pulmonary Disease 09/06/17 06/22/20 documented as of this encounter
--- OUTSIDE RECORDS SUMMARY | 2024-11-11 15:35 | XMS_ITS | Encounter Summary ---
Author Organization [facility] Address [address] [place] [phone] Care Team Providers Care Accounting Professional Name Role Phone Caitlyn Bowie MD Primary Care Provider +1- [phone] Encounter Details Date Type Department Care Team (Late st Contact Info) Description 04/12/2022 Scanned Document INTERFACE DEFAULT [address] [place] [address] System, Provider Not In Social History Tobacco [...] at [facility] 240 [facility] Building [address] [place] [address] Ronald Mills MD [address] [place] [address] [address] [place] [address] documented as of this encounter [...] documented as of this encounter Care Teams Accounting Professional Relationship Specialty Start Date End Date Caitlyn Bowie MD [address] [address] PCP - General Internal Medicine 05/06/21 documented as of this encounter
--- OUTSIDE RECORDS SUMMARY | 2024-11-11 15:35 | XMS_ITS | Encounter Summary ---
Author Organization [facility] and [facility] Address [address] [place] [address] Care Team Providers Care Sales Associate Fishing Name Role Phone Caitlyn Bowie MD Primary Care Provider +1- [phone] Encounter Details Date Type Department Care Team (Late st Contact Info) Description 04/13/2022 Scanned Document INTERFACE DEFAULT [address] [place] [address] System, Provider Not In Social History Tobacco [...] – [facility] 240 [facility] Building [address] [place], [place] [phone] Ronald Mills MD [address] [place] [address] [address] [place] [address] documented as of this encounter [...] as of this encounter Care Teams Sales Associate Fishing Relationship Specialty Start Date End Date Caitlyn Bowie MD [address] [address] PCP - General Internal Medicine 05/06/21 documented as of this encounter
--- OUTSIDE RECORDS SUMMARY | 2024-11-11 15:35 | XMS_ITS | Encounter Summary ---
Author Organization [facility] Address [address] [place] [address] Care Team Providers Care Part Time Name Role Phone Caitlyn Bowie MD Primary Care Provider +1- [phone] Encounter Details Date Type Department Care Team (Late st Contact Info) Description 04/22/2019 Scanned Document [facility] Health Information Management [address] [place] [address] External, Provider Social History Tobacco Use Types [...] [facility] 240 [facility] Building [address] [place] [address] Ronald Mills MD [address] [place] [address] [address] [place] [address] documented as of this encounter Visit Diagnoses Not on filedocumented in this encounter Additional Health Concerns Infection Onset Date Last Indicated Resolved Time COVID-19 03/05/2022 03/05/2022 03/15/2022 7:18 PM EDT Assessment Noted Time PHQ-9 Depression Total Score: 2 11/07/19 19 2:06 PM EDT documented as of this encounter Care Teams Part Time Relationship Specialty Start Date End Date Caitlyn Bowie MD 3400 [facility] 1 [place] [address] PCP - General Internal Medicine 05/06/21 Henry Kelly MD Pulmonary Department 175 [facility], [address] [place] [address] Physician Pulmonary Disease 09/06/17 06/22/20 documented as of this encounter
--- OUTSIDE RECORDS SUMMARY | 2024-11-11 15:35 | XMS_ITS | Encounter Summary ---
Author Organization [facility] Address [address] [place] [phone] Care Team Providers Care Landscaper Helper Name Role Phone Caitlyn Bowie MD Primary Care Provider +1- [phone] Encounter Details Date Type Department Care Team (Late st Contact Info) Description 12/16/2015 Scanned Document [facility] Health Information Management [address] [place] [address] External, Provider Social History Tobacco Use Types [...] Telemedicine [facility] 240 [facility] Building [address] [place], [place] [phone] Ronald Mills MD 240 [facility] [address] [place] [address] documented as of this encounter Procedures Procedure Name Priority Date/Time Associated Diagnosis Comments US RESULT SCAN Routine 12/16/2015 documented in this encounter Results * US Result Scan (12/16/2015) us Provider External IMG SCAN REPORTS Edited Result - Final [facility] [place], [place], [facility] documented in this encounter Visit Diagnoses Not on filedocumented in this encounter Additional Health Concerns Infection Onset Date Last Indicated Resolved Time COVID-19 03/05/2022 03/05/2022 03/15/2022 7:18 PM EDT documented as of this encounter Care Teams Landscaper Helper Relationship Specialty Start Date End Date Caitlyn Bowie MD 3400 [facility] [address] [place] [address] PCP - General Internal Medicine 05/06/21 Henry Kelly MD Pulmonary Department 175 [facility], [address] [place] [address] Physician Pulmonary Disease 09/06/17 06/22/20 documented as of this encounter
--- OUTSIDE RECORDS SUMMARY | 2024-11-11 15:35 | XMS_ITS | Encounter Summary ---
Author Organization [facility] Address [address] [place] [address] Care Team Providers Care Clinic Receptionist Name Role Phone Caitlyn Bowie MD Primary Care Provider +1- [phone] Encounter Details Date Type Department Care Team (Late st Contact Info) Description 01/13/2019 Scanned Document [facility] Health Information Management [address] [place] [address] External, Provider Social History Tobacco Use Types [...] Telemedicine [facility] 240 [facility] Building [address] [place] [address] Ronald Mills MD [address] [place] [address] [address] [place] [address] documented as of this encounter [...] Bowie MD 3400 [facility] 1 [place] [address] PCP - General Internal Medicine 05/06/21 Henry Kelly MD Pulmonary Department 175 [facility], [address] [place] [address] Physician Pulmonary Disease 09/06/17 06/22/20 documented as of this encounter
--- OUTSIDE RECORDS SUMMARY | 2024-11-11 15:35 | XMS_ITS | Clinical Summary ---
Author Organization [facility] Address [address] [place] [address] Phone Care Team Providers Care Boulevard Glassware Replacer Name Role Phone Caitlyn Bowie MD Primary Care Provider +1- [phone] Encounters Date Type Department Care Team Description 10/10/2024 Documentation Only [facility] [address] [place] [address] Ron Taylor MA 10/01/2024 Documentation Only [facility] [address] [place] [address] Ron Taylor MA 09/25/2024 Telephone [facility] [address] [place] [address] Ron Taylor MA from Last [...] Visit [facility] [address] [place] [address] Rubén Ashraf MD [address] [place] [address] [place] [phone] Health Maintenance Due Date Last Done Comments Influenza Vaccine (Season Ended) 2025 04/27/2020, 04/22/2019, 04/18/2016 Pneumococcal Vaccine: 50+ Years Completed 08/31/2021, 03/25/2016, 09/17/2015, Additional history exists Hepatitis B Vaccine Aged Out No longe r eligible based on patient's age to complete this topic Insurance Medicare [facility] Care Teams Boulevard Glassware Replacer Relationship Specialty Start Date End Date Caitlyn Bowie MD [facility] [place], [place] PCP - General Internal Medicine 09/24/24
--- OUTSIDE RECORDS SUMMARY | 2024-11-11 15:35 | XMS_ITS | Encounter Summary ---
Author Organization [facility] and [facility] Address [address] [place] [address] Care Team Providers Care Party Plan Dealer Name Role Phone Caitlyn Bowie MD Primary Care Provider +1- [phone] Encounter Details Date Type Department Care Team (Late st Contact Info) Description 12/01/2015 Scanned Document [facility] Health Information Management [address] [place] [address] External, Provider Social History Tobacco Use Types [...] [facility] 240 [facility] Building [address] [place], [place] [phone] Ronald Mills MD 240 [facility] [address] [place] [address] documented as of this encounter Procedures Procedure Name Priority Date/Time Associated Diagnosis Comments CT RESULT SCAN Routine 12/01/2015 documented in this encounter Results * CT Result Scan (12/01/2015) us Provider External IMG SCAN REPORTS Edited Result - Final [facility] [place], [facility] documented in this encounter Visit Diagnoses Not on filedocumented in this encounter Additional Health Concerns Infection Onset Date Last Indicated Resolved Time COVID-19 03/05/2022 03/05/2022 03/15/2022 7:18 PM EDT documented as of this encounter Care Teams Party Plan Dealer Relationship Specialty Start Date End Date Caitlyn Bowie MD 3400 [facility] [address] [place] [address] PCP - General Internal Medicine 05/06/21 Henry Kelly MD Pulmonary Department 175 [facility], [address] [place] [address] Physician Pulmonary Disease 09/06/17 06/22/20 documented as of this encounter
--- OUTSIDE RECORDS SUMMARY | 2024-11-11 15:35 | XMS_ITS | Encounter Summary ---
Author Organization [facility] and [facility] Address [address] [place] [address] Care Team Providers Care Saw Grinder Name Role Phone Caitlyn Bowie MD Primary Care Provider +1- [phone] Encounter Details Date Type Department Care Team (Latest Contact Info) Description 12/25/2015 Transcribed Orders [facility] [address] [facility] [place] [address] Osmel Briscoe MD Other abnormality of red [...] PM EDT Telemedicine Cancer Center at [address] [place], [place] [phone] Ronald Mills MD [address] [place] [address] [address] [place] [address] documented as of this encounter Results * Free kappa lambda with ratio, serum ( GH Q YH) (12/25/2015 10:09 AM EDT) Ig [place] Free Light Chain 1.84 0.33 - 1.94 mg/dL [facility] Ig Lambda Free Light Chain 1.96 0.57 - 2.63 mg/dL [facility] [place]/Lambda FLC Ratio 0.94 0.26 - 1.65 [facility] Blood specimen (specimen) 12/25/2015 10:09 AM EDT Result [facility] Osmel Briscoe MD LAB BLOOD ORDERABLES Final R esult Performing Organization Address [facility] Co de Phone Number [facility] [address] [place] [address] * Immunofixation, serum ( L Q YH) (12/25/2015 10:09 AM EDT) [facility] Immunofixation Electrophoresis Gel See below See Interp. [facility] Comment: INTERPRETATION: Normal immunofixation electrophoresis. No evidence of a serum monoclonal component. SIGNED BY:Keyur KAYE MD ON 12/29/2015 14:56:04 INTERPRETATION REVIEW : I have reviewed these results and agree with this interpretation. Blood specimen (specimen) 12/25/2015 10:09 AM EDT Osmel Briscoe MD LAB BLOOD ORDERABLES Final R esult Performing Organization Address [facility] Co de Phone Number [facility] [address] [place] [phone] * (ABNORMAL) Protein electrophoresis, serum ( GH L YH) (12/25/2015 10:09 AM EDT) Albumin Electrophoresis 3.45(L) 3.50 - 4.70 g/dL [facility] Lqbob-3-Afvuihob 0.16 0.10 - 0.30 g/dL [facility] Oqhda-9-Xmygomdf 0.81 0.60 - 1.00 g/dL [facility] Beta Globulin 0.86 0.70 - 1.20 g/dL [facility] Gamma Globulin 0.92 0.70 - 1.50 g/dL [facility] SPEP Interpretation See below See Interp. [facility] Comment: INTERPRETATION: No discrete abnormal [...] ORDERABLES Final R esult Performing Organization Address [facility] Co de Phone Number [facility] [address] [place] [address] * Reticulocytes (GH L Q YH) (12/25/2015 10:09 AM EDT) Reticulocyte Count 2.1 0.6 - 2.7 % [facility] Blood specimen (specimen) 12/25/2015 10:09 AM EDT Osmel Briscoe MD LAB BLOOD ORDERABLES Final R esult Performing Organization Address [facility] Co de Phone Number [facility] [address] [place] [address] * (ABNORMAL) Sedimentation rate (ESR) (12/25/2015 10:09 AM EDT) Sed Rate 27(H) 0 - 20 mm/hr [facility] Blood specimen (specimen) 12/25/2015 10:09 AM EDT us Osmel Briscoe MD LAB BLOOD ORDERABLES Final R esult Performing Organization Address [facility] Co de Phone Number [facility] [address] [place] [phone] * Ferritin (12/25/2015 10:09 AM EDT) Ferritin 68 9 - 120 ng/mL [facility] Blood specimen (specimen) 12/25/2015 10:09 AM EDT Osmel Briscoe MD LAB BLOOD ORDERABLES Final R esult Performing Organization Address [facility] Co de Phone Number [facility] [address] [place] [phone] * Iron and TIBC (12/25/2015 10:09 AM EDT) Iron 110 50 - 170 ug/dL [facility] TIBC 290 250 - 450 ug/dL [facility] Iron Saturation 38 15 - 50 [facility] Blood specimen (specimen) 12/25/2015 10:09 AM EDT Osmel Briscoe MD LAB BLOOD ORDERABLES Final R esult Performing Organization Address [facility] Co de Phone Number [facility] [address] [place] [phone] * Vitamin D 25 hydroxy (BH L YH) (12/25/2015 10:09 AM EDT) Vit D, 25-Hydroxy 43 20 - 50 ng/mL [facility] Comment: A serum 25(OH) vitamin [...] ORDERABLES Final R esult Performing Organization Address City/[facility]/ZIP Co de Phone Number [facility] [address] [place] [address] * TSH (BH L YH) (12/25/2015 10:09 AM EDT) TSH cancelled 0.3 - 4.2 uU/mL [facility] TSH 1.62 0.3 - 4.2 uU/mL [facility] Comment:This test is a third generation TSH assay. Blood specimen (specimen) 12/25/2015 10:09 AM EDT Osmel Briscoe MD LAB BLOOD ORDERABLES Final R esult Performing Organization Address City/[facility] Co de Phone Number [facility] [address] [place] [address] * (ABNORMAL) CBC and differential (12/25/2015 10:09 AM EDT) Pathologist [facility] CBC with Differential See Below [facility] WBC 9.9 4.0 - 10.0 x 1000/uL [facility] RBC 4.0 3.8 - 5.2 M/uL [facility] Hemoglobin 13.4 12.0 - 16.0 g/dL [facility] Hematocrit 41.0 37.0 - 47.0 % [facility] MCV 101(H) 78 - 94 fL [facility] MCH 33.2(H) 27.0 - 33.0 pg [facility] MCHC 32.8(L) 33.0 - 37.0 g/dL [facility] RDW 12.5 10.8 - 14.5 % [facility] Platelets 265 150 - 350 x 1000/uL [facility] MPV 7.2 6.0 - 10.0 fL [facility] Neutrophils 82(H) 38 - 71 % [facility] Lymphocytes 7(L) 14 - 46 % [facility] Monocytes 10 2 - 15 % [facility] Eosinophils 1 0 - 5 % [facility] Basophils 0 0 - 2 % [facility] ANC (Abs Neutrophil Count) 8.1 1.0 - 9.0 x 1000/uL [facility] Absolute Lymphocyte Count 0.7 0.6 - 4.6 x 1000/uL [facility] Blood specimen (specimen) ARM NEC / Unknown 12/25/2015 10:09 AM EDT us Osmel Briscoe MD LAB BLOOD ORDERABLES Final R esult [facility] [address] [place] [address] documented in this encounter Visit Diagnoses Diagnosis [...] as of this encounter Care Teams Saw Grinder Relationship Specialty Start Date End Date Caitlyn Bowie MD [address] [address] PCP - General Internal Medicine 05/06/21 Henry Kelly MD Pulmonary Department [address] [facility], [address] [place] [address] Physician Pulmonary Disease 09/06/17 06/22/20 documented as of this encounter
--- OUTSIDE RECORDS SUMMARY | 2024-11-11 15:35 | XMS_ITS | Encounter Summary ---
Author Organization [facility] Address [address] [place] [address] Care Team Providers Care Director Of Labor And Delivery Name Role Phone Caitlyn Bowei MD Primary Care Provider +1- [phone] Encounter Details Date Type Department Care Team (Late st Contact Info) Description 04/08/2024 Scanned Document INTERFACE DEFAULT [address] [place] [address] System, Provider Not In Social History Tobacco [...] Cancer Center at [facility] [address] [facility] Building [address] [place], [place] [phone] Ronald Mills MD [address] [place] [address] [address] [place] [address] documented as of this encounter [...] of this encounter Care Teams Director Of Labor And Delivery Relationship Specialty Start Date End Date Caitlyn Bowie MD [address] [address] PCP - General Internal Medicine 05/06/21 documented as of this encounter
--- OUTSIDE RECORDS SUMMARY | 2024-11-11 15:36 | XMS_ITS | Encounter Summary ---
Author Organization [facility] Address [address] [place] [address] Care Team Providers Care Contract Administration Coordinator Name Role Phone Caitlyn Bowie MD Primary Care Provider +1- [phone] Encounter Details Date Type Department Care Team (Late st Contact Info) Description 07/27/2016 Scanned Document Thoracic Oncology Program at [address] [address] Suzy Kong MD [address] [place] [address] Social History Tobacco Use Types Packs/Day [...] PM EDT Telemedicine Cancer Center at [address] [place], [place] [phone] Ronald Mills MD [address] [facility] [address] [place] [address] documented as of this encounter Visit Diagnoses Not on filedocumented in this encounter Additional Health Concerns Infection Onset Date Last Indicated Resolved Time COVID-19 03/05/2022 03/05/2022 03/15/2022 7:18 PM EDT documented as of this encounter Care Teams Contract Administration Coordinator Relationship Specialty Start Date End Date Caitlyn Bowie MD [address] [facility] Max [address] [place] [address] PCP - General Internal Medicine 05/06/21 Henry Kelly MD Pulmonary Department 175 [facility], [address] [place] [address] Physician Pulmonary Disease 09/06/17 06/22/20 documented as of this encounter
--- OUTSIDE RECORDS SUMMARY | 2024-11-11 15:36 | XMS_ITS | Encounter Summary ---
Author Organization [facility] Address [address] [place] [address] Care Team Providers Care Theatrical Agent Name Role Phone Caitlyn Bowie MD Primary Care Provider +1- [phone] Encounter Details Date Type Department Care Team (Late st Contact Info) Description 07/08/2016 Scanned Document [facility] Health Information Management [address] [place] [address] External, Provider Social History Tobacco Use Types [...] [facility] 240 [facility] Building [address] [place], [place] [phone] Ronald Mills MD [address] [facility] Max [address] [place] [address] documented as of this encounter Procedures Procedure Name Priority Date/Time Associated Diagnosis Comments LAB SCAN Routine 07/08/2016 documented in this encounter Results * Lab Scan (07/08/2016) Blood specimen (specimen) us Provider External LAB BLOOD ORDERABLES Final Res ult [facility] documented in this encounter Visit Diagnoses Not on filedocumented in this encounter Additional Health Concerns Infection Onset Date Last Indicated Resolved Time COVID-19 03/05/2022 03/05/2022 03/15/2022 7:18 PM EDT documented as of this encounter Care Teams Theatrical Agent Relationship Specialty Start Date End Date Caitlyn Bowie MD 3400 [facility] 1 [place] [address] PCP - General Internal Medicine 05/06/21 Henry Kelly MD Pulmonary Department 175 [facility], [address] [place] [address] Physician Pulmonary Disease 09/06/17 06/22/20 documented as of this encounter
--- OUTSIDE RECORDS SUMMARY | 2024-11-11 15:36 | XMS_ITS | Encounter Summary ---
Author Organization [facility] Address [address] [place] [address] Care Team Providers Care Leather Softener Name Role Phone Caitlyn Bowie MD Primary Care Provider +1- [phone] Encounter Details Date Type Department Care Team (Late st Contact Info) Description 12/16/2016 Scanned Document [facility] Health Information Management [address] [place] [address] External, Provider Social History Tobacco Use Types [...] at [facility] 240 [facility] Building [address] [place], [place] [phone] Ronald Mills MD 240 [facility] Max [address] [place] [address] documented as of this encounter [...] as of this encounter Care Teams Leather Softener Relationship Specialty Start Date End Date Caitlyn Bowie MD 3400 [facility] 1 [place] [address] PCP - General Internal Medicine 05/06/21 Henry Kelly MD Pulmonary Department 175 [facility], [address] [place] [address] Physician Pulmonary Disease 09/06/17 06/22/20 documented as of this encounter
--- OUTSIDE RECORDS SUMMARY | 2024-11-11 15:36 | XMS_ITS | Encounter Summary ---
Author Organization [facility] and [facility] Address [address] [place] [address] Care Team Providers Care Technical Support Coordinator Name Role Phone Caitlyn Bowie MD Primary Care Provider +1- [phone] Encounter Details Date Type Department Care Team (Late st Contact Info) Description 07/27/2016 Scanned Document Thoracic Oncology Program at [address] [address] Suzy Kong MD [address] [place] [address] Social History Tobacco Use Types Packs/Day [...] PM EDT Telemedicine Cancer Center at [address] [place], [place] [phone] Ronald Mills MD 240 [facility] Max [address] [place] [address] documented as of this encounter Visit Diagnoses Not on filedocumented in this encounter Additional Health Concerns Infection Onset Date Last Indicated Resolved Time COVID-19 03/05/2022 03/05/2022 03/15/2022 7:18 PM EDT documented as of this encounter Care Teams Technical Support Coordinator Relationship Specialty Start Date End Date Caitlyn Bowie MD 3400 [facility] Max 1 [place] [address] PCP - General Internal Medicine 05/06/21 Henry Kelly MD Pulmonary Department 175 [facility], [address] [place] [address] Physician Pulmonary Disease 09/06/17 06/22/20 documented as of this encounter
--- OUTSIDE RECORDS SUMMARY | 2024-11-11 15:36 | XMS_ITS | Encounter Summary ---
Author Organization [facility] Address [address] [place] [address] Care Team Providers Care Process Control Operator Name Role Phone Caitlyn Bowie MD Primary Care Provider +1- [phone] Encounter Details Date Type Department Care Team (Late st Contact Info) Description 10/23/2024 Scanned Document INTERFACE DEFAULT [address] [place] [address] System, Provider Not In Social History Tobacco [...] [facility] Building [address] [place], [place] [phone] Ronald Mills MD [address] [place] [address] [address] [place] [address] documented as of this encounter [...] as of this encounter Care Teams Process Control Operator Relationship Specialty Start Date End Date Caitlyn Bowie MD [address] [address] PCP - General Internal Medicine 05/06/21 documented as of this encounter
--- OUTSIDE RECORDS SUMMARY | 2024-11-11 15:36 | XMS_ITS | Encounter Summary ---
Author Organization [facility] Address [address] [place] [address] Care Team Providers Care Health Club Attendant Name Role Phone Caitlyn Bowie MD Primary Care Provider +1- [phone] Encounter Details Date Type Department Care Team (Late st Contact Info) Description 04/04/2016 Scanned Document [facility] Health Information Management [address] [place] [address] External, Provider Social History Tobacco Use Types [...] [facility] 240 [facility] Building [address] [place], [place] [phone] Ronald Mills MD 240 [facility] Max [address] [place] [address] documented as of this encounter Procedures Procedure Name Priority Date/Time Associated Diagnosis Comments LAB SCAN Routine 04/04/2016 documented in this encounter Results * Lab Scan (04/04/2016) Blood specimen (specimen) us Provider External LAB BLOOD ORDERABLES Final Res ult [facility] documented in this encounter Visit Diagnoses Not on filedocumented in this encounter Additional Health Concerns Infection Onset Date Last Indicated Resolved Time COVID-19 03/05/2022 03/05/2022 03/15/2022 7:18 PM EDT documented as of this encounter Care Teams Health Club Attendant Relationship Specialty Start Date End Date Caitlyn Bowie MD 3400 [facility] 1 [place] [address] PCP - General Internal Medicine 05/06/21 Henry Kelly MD Pulmonary Department 175 [facility], [address] [place] [address] Physician Pulmonary Disease 09/06/17 06/22/20 documented as of this encounter
--- OUTSIDE RECORDS SUMMARY | 2024-11-11 15:36 | XMS_ITS | Encounter Summary ---
Author Organization [facility] Address [address] [place] [address] Care Team Providers Care Resin Painter Name Role Phone Caitlyn Bowie MD Primary Care Provider +1- [phone] Encounter Details Date Type Department Care Team (Late st Contact Info) Description 06/17/2016 Scanned Document [facility] Health Information Management [address] [place] [address] External, Provider Social History Tobacco Use Types [...] Cancer Center at [facility] 240 [facility] Building [address] [place], [place] [phone] Ronald Mills MD 240 [facility] A1 [place] [address] documented as of this encounter Visit Diagnoses Not on filedocumented in this encounter Additional Health Concerns Infection Onset Date Last Indicated Resolved Time COVID-19 03/05/2022 03/05/2022 03/15/2022 7:18 PM EDT documented as of this encounter Care Teams Resin Painter Relationship Specialty Start Date End Date Caitlyn Bowie MD 3400 [facility] 1 [place] [address] PCP - General Internal Medicine 05/06/21 Henry Kelly MD Pulmonary Department 175 [facility], [address] [place] [address] Physician Pulmonary Disease 09/06/17 06/22/20 documented as of this encounter
--- OUTSIDE RECORDS SUMMARY | 2024-11-11 15:36 | XMS_ITS | Encounter Summary ---
Author Organization [facility] and [facility] Address [address] [place] [address] Care Team Providers Care Lumber Marker Name Role Phone Caitlyn Bowie MD Primary Care Provider +1- [phone] Encounter Details Date Type Department Care Team (Late st Contact Info) Description 10/10/2016 Scanned Document COUNTS INCLUDE 234 [facility]EDS AT [facility] Health Information Management [address] [place] [address] External, Provider Social History Tobacco Use Types [...] [facility] 240 [facility] Building [address] [place], [place] [phone] Ronald Mills MD 240 [facility] A1 [place] [address] documented as of this encounter Visit Diagnoses Not on filedocumented in this encounter Additional Health Concerns Infection Onset Date Last Indicated Resolved Time COVID-19 03/05/2022 03/05/2022 03/15/2022 7:18 PM EDT documented as of this encounter Care Teams Lumber Marker Relationship Specialty Start Date End Date Caitlyn Bowie MD 3400 [facility] 1 [place] [address] PCP - General Internal Medicine 05/06/21 Henry Kelly MD Pulmonary Department 175 [facility], [address] [place] [address] Physician Pulmonary Disease 09/06/17 06/22/20 documented as of this encounter
--- OUTSIDE RECORDS SUMMARY | 2024-11-11 15:36 | XMS_ITS | Encounter Summary ---
Author Organization [facility] Address [address] [place] [address] Care Team Providers Care Banquet Pilot Name Role Phone Caitlyn Bowie MD Primary Care Provider +1- [phone] Encounter Details Date Type Department Care Team (Late st Contact Info) Description 12/14/2016 Scanned Document [facility] Health Information Management [address] [place] [address] External, Provider Social History Tobacco Use Types [...] [facility] 240 [facility] Building [address] [place], [place] [phone] Ronald Mills MD 240 [facility] [address] [place] [address] documented as of this encounter [...] as of this encounter Care Teams Banquet Pilot Relationship Specialty Start Date End Date Caitlyn Bowie MD 3400 [facility] 1 [place] [address] PCP - General Internal Medicine 05/06/21 Henry Kelly MD Pulmonary Department 175 [facility], [address] [place] [address] Physician Pulmonary Disease 09/06/17 06/22/20 documented as of this encounter
--- OUTSIDE RECORDS SUMMARY | 2024-11-11 15:36 | XMS_ITS | Encounter Summary ---
Author Organization [facility] and [facility] Address [address] [place] [address] Care Team Providers Care Loom Repairer Name Role Phone Caitlyn Bowie MD Primary Care Provider +1- [phone] Encounter Details Date Type Department Care Team (Late st Contact Info) Description 06/17/2016 Scanned Document [facility] Health Information Management [address] [place] [address] External, Provider Social History Tobacco Use Types [...] Center at [facility] 240 [facility] Building [address] [place], [place] [phone] Ronald Mills MD 240 [facility] [address] [place] [address] documented as of this encounter Visit Diagnoses Not on filedocumented in this encounter Additional Health Concerns Infection Onset Date Last Indicated Resolved Time COVID-19 03/05/2022 03/05/2022 03/15/2022 7:18 PM EDT documented as of this encounter Care Teams Loom Repairer Relationship Specialty Start Date End Date Caitlyn Bowie MD 3400 [facility] [place] [address] PCP - General Internal Medicine 05/06/21 Henry Kelly MD Pulmonary Department 175 [facility], [address] [place] [address] Physician Pulmonary Disease 09/06/17 06/22/20 documented as of this encounter
--- OUTSIDE RECORDS SUMMARY | 2024-11-11 15:36 | XMS_ITS | Encounter Summary ---
Author Organization [facility] and [facility] Address [address] [place] [phone] Care Team Providers Care Bottle Packing Machine Cleaner Name Role Phone Caitlyn Bowie MD Primary Care Provider +1- [phone] Encounter Details Date Type Department Care Team (Late st Contact Info) Description 12/14/2016 Scanned Document [facility] Health Information Management [address] [place] [address] External, Provider Social History Tobacco Use Types [...] [facility] at [facility] [address] [facility] Building [address] [place], [place] [phone] Ronald Mills MD 240 [facility] A[address] [place] [address] documented as of this encounter Visit Diagnoses Not on filedocumented in this encounter Additional Health Concerns Infection Onset Date Last Indicated Resolved Time COVID-19 03/05/2022 03/05/2022 03/15/2022 7:18 PM EDT documented as of this encounter Care Teams Bottle Packing Machine Cleaner Relationship Specialty Start Date End Date Caitlyn Bowie MD 3400 [facility] 1 [place] [address] PCP - General Internal Medicine 05/06/21 Henry Kelly MD Pulmonary Department 175 [facility], [address] [place] [address] Physician Pulmonary Disease 09/06/17 06/22/20 documented as of this encounter
--- OUTSIDE RECORDS SUMMARY | 2024-11-11 15:36 | XMS_ITS | Encounter Summary ---
Author Organization [facility] Address [address] [place] [id number] Care Team Providers Care Collections Officer Name Role Phone Caitlyn Bowie MD Primary Care Provider +1- [phone] Encounter Details Date Type Department Care Team (Late st Contact Info) Description 06/17/2016 Scanned Document [facility] Health Information Management [address] [place] [id number] External, Provider Social History Tobacco Use Types [...] [facility] [address] [facility] [address] [place], [place] [id number] Ronald Mills MD [address] [facility] [address] [place] [address] documented as of this encounter Procedures Procedure Name Priority Date/Time Associated Diagnosis Comments XRAY RESULT SCAN Routine 06/17/2016 documented in this encounter Results * Xray Result Scan (06/17/2016) us Provider External IMG SCAN REPORTS Final Result [facility] [place], [place], [facility] documented in this encounter Visit Diagnoses Not on filedocumented in this encounter Additional Health Concerns Infection Onset Date Last Indicated Resolved Time COVID-19 03/05/2022 03/05/2022 03/15/2022 7:18 PM EDT documented as of this encounter Care Teams Collections Officer Relationship Specialty Start Date End Date Caitlyn Bowie MD [address] [facility] 1 [place] [address] PCP - General Internal Medicine 05/06/21 Henry Kelly MD Pulmonary Department [address] [place] [address], [address] [place] [address] Physician Pulmonary Disease 09/06/17 06/22/20 documented as of this encounter
--- OUTSIDE RECORDS SUMMARY | 2024-11-11 15:36 | XMS_ITS | Encounter Summary ---
Author Organization [facility] Address [address] [place] [phone] Care Team Providers Care Button Tacker Name Role Phone Caitlyn Bowie MD Primary Care Provider +1- [phone] Encounter Details Date Type Department Care Team (Late st Contact Info) Description 12/16/2016 Scanned Document [facility] Health Information Management [address] [place] [id number] External, Provider Social History Tobacco Use Types [...] at [facility] [address] [facility] [address] [place], [place] [id number] Ronald Mills MD [address] [facility] [address] [place] [address] documented as of this encounter [...] documented as of this encounter Care Teams Button Tacker Relationship Specialty Start Date End Date Caitlyn Bowie MD [address] [facility] 1 [place] [address] PCP - General Internal Medicine 05/06/21 Henry Kelly MD Pulmonary Department [address] [facility], [address] [place] [address] Physician Pulmonary Disease 09/06/17 06/22/20 documented as of this encounter
--- OUTSIDE RECORDS SUMMARY | 2024-11-11 15:36 | XMS_ITS | Encounter Summary ---
Author Organization [facility] Address [address] [place] [address] Care Team Providers Care Gambling Broker Name Role Phone Caitlyn Bowie MD Primary Care Provider +1- [phone] Encounter Details Date Type Department Care Team (Late st Contact Info) Description 07/27/2016 Scanned Document Thoracic Oncology Program at [address] [address] Suzy Kong MD [address] [place] [phone] Social History Tobacco Use Types Packs/Day [...] PM EDT [facility] at [address] [place], [place] [phone] Ronald Mills MD [address] [facility] [address] [place] [address] documented as of this encounter Visit Diagnoses Not on filedocumented in this encounter Additional Health Concerns Infection Onset Date Last Indicated Resolved Time COVID-19 03/05/2022 03/05/2022 03/15/2022 7:18 PM EDT documented as of this encounter Care Teams Gambling Broker Relationship Specialty Start Date End Date Caitlyn Bowie MD [address] [facility] [address] [place] [address] PCP - General Internal Medicine 05/06/21 Henry Kelly MD Pulmonary Department [address] [facility], [address] [place] [address] Physician Pulmonary Disease 09/06/17 06/22/20 documented as of this encounter
--- OUTSIDE RECORDS SUMMARY | 2024-11-11 15:36 | XMS_ITS | Encounter Summary ---
Author Organization [facility] Address [address] [place] [address] Care Team Providers Care Golf Club Repairer Name Role Phone Caitlyn Bowie MD Primary Care Provider +1- [phone] Reason for Referral * Imaging (Routine) - Closed Specialty Diagnoses / Procedures Referred By Contac t Referred To Contact Procedures NM Lung Ventilation Perfusion ([facility]) External, Provider Referral ID Status Reason Start Date Expiration Date Visits Re quested Visits Authorized [id number] Closed 08/22/2016 08/22/2017 4 4 Encounter Details Date Type Department Care Team (Late st Contact Info) Description 08/22/2016 Scanned Document Thoracic Oncology Program at [address] [address] External, Provider Social History Tobacco Use Types [...] 4:00 PM EDT [facility] at [address] [place] [address] Ronald Mills MD [address] [place] [address] [address] [place] [phone] documented as of this encounter Procedures Procedure Name Priority Date/Time Associated Diagnosis Comments XRAY RESULT SCAN Routine 07/27/2016 CT RESULT SCAN Routine 07/27/2016 CT RESULT SCAN Routine 07/27/2016 CARDIAC EKG RESULT SCAN Routine 07/27/2016 LAB SCAN Routine 07/27/2016 NM LUNG VENTILATION PERFUSIO N (LOCATED WITHIN [facility]) Routine 07/27/2016 documented in this encounter Results * Xray Result Scan (07/27/2016) us Provider External IMG SCAN REPORTS Final Result Performing Organization Address [facility] Co de Phone Number [facility] * CT Result Scan (07/27/2016) us Provider External IMG SCAN REPORTS Final Result Performing Organization Address [facility] Co de Phone Number [facility] * Cardiac EKG Result Scan (07/27/2016) us Provider External CV CARDIAC REPORT (CVR) Final Result Performing Organization Address [facility] Co de Phone Number [facility] * CT Result Scan (07/27/2016) us Provider External IMG SCAN REPORTS Final Result Performing Organization Address [facility] Co de Phone Number [facility] * Lab Scan (07/27/2016) Blood specimen (specimen) us Provider External LAB BLOOD ORDERABLES Final Res ult Performing Organization Address [facility] Co de Phone Number [facility] * NM Lung Ventilation Perfusion ([facility]) (07/27/2016) Anatomical Region Laterality Modality Chest, Lung Nuclear Medicine us Provider External IMG NM ORDERABLES Final Result documented in this encounter Visit Diagnoses Not on filedocumented in this encounter Additional Health Concerns Infection Onset Date Last Indicated Resolved Time COVID-19 03/05/2022 03/05/2022 03/15/2022 7:18 PM EDT documented as of this encounter Care Teams Golf Club Repairer Relationship Specialty Start Date End Date Caitlyn Bowie MD [address] [facility] 1 [place] [address] PCP - General Internal Medicine 05/06/21 Henry Kelly MD Pulmonary Department [address] [facility] [place] [address] Physician Pulmonary Disease 09/06/17 06/22/20 documented as of this encounter
== END 2024-11-11 14:40 | disposition home or self-care (01) ==
LOC: HO.HCS 13:57
PROVIDERS: PCP Internal Medicine; Visit Provider Internal Medicine Cardiovascular Disease
DX: I50.32 Chronic diastolic (congestive) heart failure (principal); I27.20 Pulmonary hypertension, unspecified
CPT/HCPCS: 99214

== ENCOUNTER → 2024-11-11 13:56 | Outpatient (BNVA) | payer MEDICARE, SELFPAY | PROVIDERS: PCP Internal Medicine; Visit Provider Internal Medicine Cardiovascular Disease | DX: I50.32 Chronic diastolic (congestive) heart failure (principal); I27.20 Pulmonary hypertension, unspecified | CPT/HCPCS: 99212 ==

== ENCOUNTER 2024-11-21 10:24 | Outpatient (AMB) | payer MEDICARE, SELFPAY ==
[2024-11-21 10:36] VITALS: BP 112/48; PULSE 81; O2SAT 99; BMI 23.0
--- NOTE | 2024-11-21 10:36 | MHC.OFFVIS ---
Vital Signs 11/21/24 10:36 Height 5 ft 3 in Weight 130 lb 1.164 oz BMI 23.0 BP 112/48 L Blood Pressure Location Lt brachial Position Sitting Pulse 81 Pulse Source Pulse Oximeter Pulse Oximetry (%) 99 Oxygen Delivery Method Nasal Cannula Oxygen Flow Rate 2 Intake Visit Reasons: dyspnea Burlap Roll Coverer Required: No Accompanied by: Self / Same As Patient Allergies morphine Allergy (Severe, Verified 11/21/24 10:40) Itching avocado [AVOCADO] Allergy (Mild, Verified 11/21/24 10:40) ITCHY THROAT, RASH azithromycin [AZITHROMYCIN] Allergy (Mild, Verified 11/21/24 10:40) ITCHY THROAT, RASH barium iodide [BARIUM IODIDE] Allergy (Mild, Verified 11/21/24 10:40) ITCHY THROAT, RASH barium sulfate Allergy (Mild, Verified 11/21/24 10:40) Itch bee pollen [BEE STINGS] Allergy (Mild, Verified 11/21/24 10:40) ITCHY THROAT, RASH ciprofloxacin [From CIPRO] Allergy (Mild, Verified 11/21/24 10:40) ITCHY THROAT, RASH clarithromycin [From BIAXIN] Allergy (Mild, Verified 11/21/24 10:40) ITCHY THROAT, RASH diatrizoate meglumine [From GASTROGRAFIN] Allergy (Mild, Verified 11/21/24 10:40) ITCHY THROAT, RASH diatrizoate sodium [From GASTROGRAFIN] Allergy (Mild, Verified 11/21/24 10:40) ITCHY THROAT, RASH diclofenac [From VOLTAREN] Allergy (Mild, Verified 11/21/24 10:40) ITCHY THROAT, RASH erythromycin base [ERYTHROMYCIN BASE] Allergy (Mild, Verified 11/21/24 10:40) ITCHY THROAT, RASH gentamicin [GENTAMICIN] Allergy (Mild, Verified 11/21/24 10:40) ITCHY THROAT, RASH Iodinated Contrast Media [IVP DYE] Allergy (Mild, Verified 11/21/24 10:40) ITCHY THROAT, RASH levofloxacin [From LEVAQUIN] Allergy (Mild, Verified 11/21/24 10:40) ITCHY THROAT, RASH metronidazole [From FLAGYL] Allergy (Mild, Verified 11/21/24 10:40) ITCHY THROAT, RASH moxifloxacin [From AVELOX] Allergy (Mild, Verified 11/21/24 10:40) ITCHY THROAT, RASH Penicillins [PENICILLINS] Allergy (Mild, Verified 11/21/24 10:40) ITCHY THROAT, RASH shrimp [SHRIMP] Allergy (Mild, Verified 11/21/24 10:40) ITCHY THROAT, RASH Sulfa (Sulfonamide Antibiotics) [SULFA (SULFONAMIDE ANTIBIOTICS)] Allergy (Mild, Verified 11/21/24 10:40) ITCHY THROAT, RASH vancomycin [VANCOMYCIN] Allergy (Mild, Verified 11/21/24 10:40) ITCHY THROAT, RASH clindamycin Adverse Reaction (Intermediate, Verified 11/21/24 10:40) Unknown HPI Comments Details: The patient is a 79 y/o woman with a complicated history which includes: COPD, KANDY, pulmonary HTN, history pulmonary emboli on chronic anticoagulation, lung CA Stage IIIA s/o neoadjuvant chemoradiation and Left upper lobe lobectomy. She did have a CT scan today that I personally reviewed. Has not been personally read by the radiologist. Based on my reading she has some pulmonary nodules some that are new 4 mm in the right major fissure area. Other nodules are stable. Other post operative and pulmonary fibrotic changes stable. The patient should get a CT scan in 6 months. Also to note, she did not tolerate the Incruse nor budesonide. Will consider Daliresp. She was admitted to [facility] with diverticulitis. She was placed on IV antibiotics but she left against medical advice because she did not like the antibiotic options. In the meantime she was having some issues with coughing up some blood. She is also concerned because on her visit to [facility] she did have a CT scan of the chest and she was told that she had significant scarring of her lungs in addition to lung volume loss. I have not looked at the CT scan back in reassured her that she has had this radiation fibrosis for long time and volume loss due to the scarring was present before. We did review her perfusion scan demonstrating no defects to suggest any blood clots. Interestingly in the quantitative study the patient did have 81% of the blood flow going to her right lung and 18% going to the left. This is likely due to her previous surgery and also radiation changes. 03/21/2024 the patient is here for pulmonary follow-up visit. She has multiple complaints. She is entirely seems any physicians. She is still dealing with the wound getting plenty of wound care 4. Still getting debrided. In addition to that she has had a productive cough. The phlegm is now clear but thick difficult to expectorate. Sometimes feel like it is dripping for nasal passages down like a postnasal drip. The patient is currently on cefpodoxime. She is finishing a course. We did try to get sputum in the office but she was not able to do so. I did give her a cup in order for her to be doing her own time. We will be able to look for both Gram stain culture and also AFB. The patient also had a chest x-ray which I personally reviewed and also compared to her previous x-rays. It appears that she has worsening left-sided pleural effusion. Hard to know that is long as very affected on that side there is any active disease otherwise. She has not had a CT scan since October. In view of the worsening chest x-ray in the ongoing symptoms will go ahead and request a CT scan time. The patient also could try some Mucomyst. I will send some to the pharmacy to see if we can get it. She understands that is hard to get. When she gets she can use it twice a day for CPT to see if this helps clear the secretions that gets that within her airways. In addition to that the patient has been using the BiPAP. The BiPAP therapy has been affecting beneficial. She does use it for more than 4 hours a night. However, she does have a component of hypercarbia and she would do better with the noninvasive ventilator. Currently she is set up for sleep study at [facility] coming up. Hopefully they can do a split study and try titrate her figure out what her best form of therapy it is. At some point though if she continues on the BiPAP will need to replace it because his older than 5 years. 05/09/2024 the patient is here for a pulmonary follow-up visit. Overall she is doing well from a respiratory status. She recently did have a CT scan of the chest that at [facility]. I did personally reviewed. Appears to be stable. She does have the chronic effusion in the parenchymal disease. This is all stable. She does have a small compression fracture though. Has significant osteopenia. She did have blood work with her space systems operations craftsman recently. Her antiphospholipid antibodies and anticardiolipin antibodies continue antiphospholipid antibody elevated. Her homocystine that was also elevated. She is going to start folic acid. She is concerned because her D-dimer was significantly elevated. Although she did have trauma to the legs. She had lower extremity Dopplers which were negative for any clots which is reassuring. Previous he Q scans have been reassuring. Will go ahead and repeat her blood test to see make sure that the D-dimer is coming down. If the D-dimer continues to be elevated then will do additional testing for potential occult clots. She continues on the Coumadin with a goal level 1.5-2. I do believe that she should stay on it based on the fact that she has significant symptoms and coming off the medicine may result in more security of the results specially since the Coumadin has been working for her chronic thromboembolic disease. From the wound standpoint the patient is doing better from the wound healing on her right lower extremity although she recently had another the trauma to the left. She is also dealing with a boil or a growth on the perineal area. She is going to be seeing wedding cake designer for that. 08/08/2024 the patient is here for a pulmonary follow-up visit. Overall she is doing okay. She does have issues with her balance and also issues with dysuria. The patient has been also having issues with her oxygen that was at nighttime. She has been noticing worsening hypoxia. She has been using her BiPAP 16/10. She does use it with her oxygen. The patient did have a download recently and her AHI is up to 10 cm. She also had a blood gas demonstrating elevations in her CO2. Therefore, will go ahead and increase her BiPAP settings from 16-10 to 18/12. This BiPAP is about 6 years old now. The patient likely needs a replacement. Will go ahead and refer her to sleep in [place] in order for her to undergo a split study in order to get her a new PAP therapy. During the titration study component will be helpful to see if she is better off with AVAPS versus BiPAP. We did try her underlying AVAP but she could not tolerate it. She followed she did not have enough teaching. Therefore, will go ahead and increase the pressures of her BiPAP monitor her AHI and recheck a venous gas while we wait for her to see a certified sleep specialist in [place]. In the meantime she continues with her diuresis. Will go ahead and check a blood work. The patient also had a CT scan of the chest back in 03/29/2024 demonstrating no acute disease just a chronic changes. Will plan to talk about any additional imaging during her next visit. She will continue with current respiratory regimen for now. 09/11/2024 the patient is here for hospital follow-up visit. Apparently she was in the ER with worsening shortness of breath and cough. She was at [facility]. There she did have blood work. Her brain atretic peptide was significantly elevated at 100. She also did have a CT scan of the chest which I personally reviewed. She does have just chronic findings which include her radiation fibrosis decreased lung volume on the left along with the small pleural effusion on the left with the heart shifted Leftward as well volume loss. She was diagnosed with bronchitis and the patient was discharged. We did review further blood work and her sedimentation rate has been climbing slowly now at 51. in addition to that she does have a history of positive CLARA and now she is complaining of some pleuritic chest discomfort bringing up the question of underlying connective tissue disease resulting in some pleuritis. In addition to that she has been feeling episodes of increased heart rate and shortness of breath. I suspect that is likely a pulmonary vascular component. Her last echocardiogram demonstrating moderate degree of pulmonary hypertension. Unfortunately, she did not tolerate pulmonary vasodilators because if the significant amount of increase in the volume to the left ventricle then ultimately resulting in congestive heart failure. Therefore hold off on that. The patient is also anxious. She is not sleeping well. She feels that she is going to fall asleep and not wake up. She is willing to try small dose of Ambien. This will help her fall asleep and I explained to her that is not going to suppress her respiratory drive. We also did look at her blood gas that she had initially when she showed up and she had a severe case of respiratory alkalosis and she was able to breathe down her pCO2 down to 24 which is pretty significant. In addition to that she is willing to try small dose of Plaquenil to treat her for underlying pleuritis and pain and see if this can provide some relief as we repeat her blood work. She will be following up with Hematology. 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 I did print out the blood work so she can talk to her space systems operations craftsman in the meantime will go ahead and repeat her blood work as well. She continues to be on high dose of diuretics. Volume status seems to be better at this time. She continues use the oxygen with good effect. Sometimes her oxygen drops because of her cardiopulmonary disease. She does not have much pulmonary reserve. In with the pulmonary hypertension along with diastolic dysfunction this quit quickly result in hypoxia. She can take breaks though when she is sitting as lungs are oxygens above 90%. 11/04/2024 the patient is here for a pulmonary follow-up visit. Since we last spoke she started developing abdominal pain. She did go to the ER where she was diagnosed with diverticulitis based on a CAT scan showing fat stranding close to the areas of diverticulosis in the left descending colon. The patient was not given any antibiotics because of all her allergies. She then followed up with the GI doctor called and it was recommended that she go back to the ER. She has not started any therapy for this. She has been feeling a little dehydrated from the lack of p.o. intake as she is doing significant amount of bowel rest. She has tolerated cephalosporins in the past. I will go ahead and send her Vantin to the pharmacy that she can use. She has also tolerated ceftriaxone in the hospital that has also been helpful for her. She does not tolerate clindamycin anymore and unfortunately she does not call tolerate the Flagyl either so we can not provide her with any anaerobic coverage. Still though [facility] has a broad spectrum coverage and should help. If her symptoms worsen though she should definitely go to the ER specially she is getting dehydrated or for abdominal comfort is worse or if she started developing fevers or chills or any other concerning symptoms. As far as her sleep apnea the patient did undergo a sleep study. This was done in [place]. It was recommended that based on her sleep apnea noted on his study that she start CPAP therapy. I did not see that they checked the end-tidal CO2 but at this point I think is reasonable for her to start CPAP on 2 L of oxygen and if she does not tolerate that if she fails CPAP we can quickly switch over to BiPAP anyway. Will go ahead and request a replacement APAP through [employer] [employer]. And therefore she can get her supplies as well. If she has a machine prior to her next appointment she can always bring it in so we can review with her. From a respiratory status she is okay she is using her oxygen with good effect. The patient continues on the Lasix as well she is taking 160 mg daily total. Because of her significant weight loss decreased p.o. intake I did have her only take half the dose for couple days in order for her to read a Barkley very and then go back to the full dose when she is able to take by mouth. 11/21/2024 the patient is here for pulmonary follow-up visit. The patient overall has been feeling better from the diverticulitis. She did complete the Vantin. She still has some on hold in case her symptoms worsened again. She will be following up with Dr. Fang soon. In the meantime respiratory status is stable. She does have bowel some dyspnea and hypoxia. She is already on high dose of diuretics. She is going to be following up a heart failure specialist. I do believe that is [facility] may be a potential option for her. In the meantime she continues use her respiratory therapy with good effect. She continues use her oxygen did effect. She also continues use the BiPAP every night. BiPAP therapy has been affecting beneficial. She does use it for more than 4 hours a night. She is complaining of a dry mouth. I did increase the humidity a little bit. She can always increase in more from home. In the meantime her BiPAP is very old. Will request a replacement BiPAP at this time with a local [employer] company, [employer]. Otherwise patient follow-up in 2-3 months. If she has any issues prior to this she will call for an earlier assessment. [facility] Medical History Chronic hypercapnic respiratory failure KANDY treated with BiPAP COPD (chronic obstructive pulmonary disease) Open wound Warfarin anticoagulation Complex sleep apnea syndrome Leg pain Anemia Tachycardia DVT (deep venous thrombosis) Compression fracture of body of thoracic vertebra ASD (atrial septal defect) Pleuritic chest pain History of COVID-19 Chronic anticoagulation Hypothyroidism GERD (gastroesophageal reflux disease) Hyperlipidemia Hypertension Factor 5 Leiden mutation, heterozygous History of non-ST elevation myocardial infarction (NSTEMI) Hypoxia Anxiety PTSD (post-traumatic stress disorder) Hemoptysis Dyspnea Tracheobronchitis CLARA positive Diverticulitis Allergic bronchitis (HFpEF) heart failure with preserved ejection fraction Subarachnoid bleed Insomnia Anti-phospholipid antibody syndrome Hypogammaglobulinemia Chronic respiratory failure Arterial insufficiency of lower extremity Complex regional pain syndrome i of right lower limb Post herpetic neuralgia Pulmonary hypertension Pericardial effusion Pulmonary emboli Pleural effusion Radiation fibrosis of lung Pneumonitis Pulmonary nodules Lung cancer Surgical History History of colonoscopy History of lung surgery History of tonsillectomy History of hysterectomy S/P mitral valve clip implantation History of cardiac cath Family History Sister No problems noted. Mother Cardiovascular disease Daughter Tachycardia Other KANDY (obstructive sleep apnea) Social History (Updated 11/21/24 @ 10:44 by Gunjan Carty [facility]) Household Members: Other Housing: Correction Do you presently have visiting nurse or other home services: Yes (at home had ENROBING MACHINE OPERATOR that came to visit her) Unable to assess alcohol history related to: Unknown Alcohol intake: never Comment: stand by assist with ambulation Patient Tobacco Use Status: Never used Tobacco Second Hand Smoke Exposure: No Advance Directives Date on File: 06/15/22 service: No Current occupational status: retired Review of Systems Const Denies chills, Denies fatigue, Denies fever(s), Denies weight gain and Denies weight loss Eyes Denies change in vision ENT Denies dizziness Card Denies chest pain, Reports leg edema, Denies lightheadedness, Denies palpitations, Reports dyspnea on exertion, Denies orthopnea and Denies other Resp Reports cough, Reports dyspnea on exertion and Reports wheezing GI Denies hematochezia and Denies change in stool character Musc Denies abnormal gait, Denies muscle weakness, Denies numbness, Denies radiating pain into limb and Denies tingling Skin/Breast Reports change in pigmentation, Reports skin swelling and Reports unusual bruising Neuro Denies abnormal gait, Denies dizziness, Denies numbness and Denies tingling Psych Reports depression Endo Denies fatigue and Denies palpitations Aller/Immun Reports wheezing Physical Exam Vital Signs: Last Vital Signs Pulse 81 11/21/24 10:36 BP 112/48 L 11/21/24 10:36 Pulse Ox 99 11/21/24 10:36 Oxygen Delivery Method Nasal Cannula 11/21/24 10:36 Oxygen Flow Rate 2 11/21/24 10:36 BMI result Body Mass Index 23.0 Last Vital Signs Temp 97.7 F 06/20/22 08:00 Pulse 90 06/20/22 08:00 Resp 16 06/20/22 08:00 BP 137/60 06/20/22 08:00 Pulse Ox 93 06/20/22 08:00 O2 Del Method 06/20/22 08:00 O2 Flow Rate 2 06/20/22 08:00 FiO2 45 06/14/22 11:07 BMI result Body Mass Index 23.0 Const General: cooperative, comfortable, alert and awake Orientation/consciousness: patient oriented x3 HEENT Head: Yes atraumatic Eyes General: appearance normal, both eyes and all related structures Neck Neck: Yes trachea midline, Yes supple and Yes no JVD Chest Chest palpation & inspection: tenderness rib (right side) Resp Effort & Inspection: normal respiratory effort, no cough and No prolonged expiratory phase Auscultation: no rales, no rhonchi, no wheezes and diminished lung sounds Cardio Rate: regular rate Rhythm: regular rhythm Heart sounds: S1 normal heart sound present and S2 normal heart sound present GI Palpation (GI): Soft to palpation and Tenderness to palpation present (GI) in the LLQ Auscultation: normal bowel sounds Skin General skin exam: purpura and scars Neuro General: patient oriented x3 and no focal motor deficits Extrem Right lower extremity: edema Assessment & Plan Assessment & Plan (1) COPD (chronic obstructive pulmonary disease): Code(s): J44.9 - Chronic obstructive pulmonary disease, unspecified Category: Medical Qualifiers: COPD type: chronic bronchitis Chronic bronchitis type: simple Qualified Code(s): J41.0 - Simple chronic bronchitis (2) Chronic hypercapnic respiratory failure: Code(s): J96.12 - Chronic respiratory failure with hypercapnia Category: Medical (3) Complex sleep apnea syndrome: Code(s): G47.31 - Primary central sleep apnea Category: Medical (4) Pulmonary hypertension: Comment: severe based on RHC, moderate based on recent echo Code(s): I27.20 - Pulmonary hypertension, unspecified Category: Medical (5) Pulmonary nodules: Code(s): R91.8 - Other nonspecific abnormal finding of lung field Category: Medical (6) Chronic respiratory failure: Code(s): J96.10 - Chronic respiratory failure, unspecified whether with hypoxia or hypercapnia Category: Medical Qualifiers: Respiratory failure complication: hypoxia and hypercapnia Qualified Code(s): J96.11 - Chronic respiratory failure with hypoxia; J96.12 - Chronic respiratory failure with hypercapnia (7) KANDY treated with BiPAP: Comment: BIPAP 25/03 to 16 to 16->(AHI 10) increased to 18/12. Will request a BIPAP/ivap titration study. She would like to have her study in [place] where she had a good experience in the past. We will look into ordering a replacement PAP therapy after she has completed her titration study Code(s): G47.33 - Obstructive sleep apnea (adult) (pediatric) Category: Medical (8) Radiation fibrosis of lung: Code(s): J70.1 - Chronic and other pulmonary manifestations due to radiation Category: Medical (9) (HFpEF) heart failure with preserved ejection fraction: Code(s): I50.30 - Unspecified diastolic (congestive) heart failure Category: Medical Qualifiers: Heart failure chronicity: chronic Qualified Code(s): I50.32 - Chronic diastolic (congestive) heart failure (10) Lung cancer: Code(s): C34.90 - Malignant neoplasm of unspecified part of unspecified bronchus or lung Category: Medical Qualifiers: Laterality: left Lung location: upper lobe of lung Qualified Code(s): C34.12 - Malignant neoplasm of upper lobe, left bronchus or lung (11) Pleural effusion: Code(s): J90 - Pleural effusion, not elsewhere classified Category: Medical Plan prednisone 2.5 mg QOD Ambien for sleep continue Advair ASHA as needed continue ASHA (xopenex) as needed CPT with acapella valve fluticasone Oxygen 2L/pulse with activity and sleep. POC Inogen G5 duiresis as tolerated Requesting BIPAP 2L (regional) F/U 6 weeks Coding Level of Care Code Est Pt Level 5 (42429) Complex EM visit Add On G2211 Diagnoses Simple chronic bronchitis J41.0 COPD type: chronic bronchitis Chronic bronchitis type: simple Chronic hypercapnic respiratory failure J96.12 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 Pulmonary hypertension I27.20 Pulmonary nodules R91.8 Chronic respiratory failure with hypoxia and hypercapnia J96.11; J96.12 Respiratory failure complication: hypoxia and hypercapnia KANDY treated with BiPAP G47.33 Radiation fibrosis of lung J70.1 Chronic heart failure with preserved ejection fraction I50.32 Heart failure chronicity: chronic Malignant neoplasm of upper lobe of left lung C34.12 Laterality: left Lung location: upper lobe of lung Pleural effusion J90 Time Spent (min) 45
--- OUTSIDE RECORDS SUMMARY | 2024-11-21 11:30 | XMS_ITS | Encounter Summary ---
Author Organization [facility] Address [address] [place] [address] Care Team Providers Care Tank Erector Name Role Phone Caitlyn Bowie MD Primary Care Provider [phone]- [phone] Encounter Details Date Type Department Care Team (Late st Contact Info) Description 05/19/2020 Scanned Document [facility] at [address] [address] External, Provider Social History Tobacco Use Types [...] [facility] [address] [facility] [address] [place], [place] [id number] Ronald Mills MD [address] [place] [address] [address] [place] [address] documented as of this encounter [...] as of this encounter Care Teams Tank Erector Relationship Specialty Start Date End Date Caitlyn Bowie MD [address] [facility] [address] [place] [address] PCP - General Internal Medicine 05/06/21 Henry Kelly MD Pulmonary Department [address] [facility] [place] [address] Physician Pulmonary Disease 09/06/17 06/22/20 documented as of this encounter
--- OUTSIDE RECORDS SUMMARY | 2024-11-21 11:30 | XMS_ITS | Encounter Summary ---
Author Organization [facility] and [facility] Address [address] [place] [address] Care Team Providers Care Social Worker Aide Name Role Phone Caitlyn Bowie MD Primary Care Provider +1- [phone] Encounter Details Date Type Department Care Team (Late st Contact Info) Description 07/08/2020 Scanned Document [facility] Health Information Management [address] [place] [address] External, Provider Social History Tobacco Use Types [...] [facility] [place] [address] [place], [place] [id number] Ronald Mills MD [address] [place] [address] [address] [place] [address] documented as of this encounter [...] as of this encounter Care Teams Social Worker Aide Relationship Specialty Start Date End Date Caitlyn Bowie MD [address] [address] PCP - General Internal Medicine 05/06/21 documented as of this encounter
--- OUTSIDE RECORDS SUMMARY | 2024-11-21 11:30 | XMS_ITS | Encounter Summary ---
Author Organization [facility] Address [address] [place] [address] Care Team Providers Care Behavioral Health Technician Name Role Phone Caitlyn Bowie MD Primary Care Provider +1- [phone] Encounter Details Date Type Department Care Team (Late st Contact Info) Description 09/17/2020 Scanned Document [facility] Health Information Management [address] [place] [address] External, Provider Social History Tobacco Use Types [...] [facility] 240 [facility] Building [address] [place], [place] [phone] Ronald Mills MD [address] [place] [address] [address] [place] [address] documented as of this encounter [...] of this encounter Care Teams Behavioral Health Technician Relationship Specialty Start Date End Date Caitlyn Bowie MD [address] [address] PCP - General Internal Medicine 05/06/21 documented as of this encounter
--- OUTSIDE RECORDS SUMMARY | 2024-11-21 11:30 | XMS_ITS | Encounter Summary ---
Author Organization [facility] and [facility] Address [address] [place] [address] Care Team Providers Care Chef Teacher Name Role Phone Caitlyn Bowie MD Primary Care Provider +1- [phone] Encounter Details Date Type Department Care Team (Late st Contact Info) Description 05/14/2020 Documentation Hematology Program at [address] [address] Taya Nuno RN Social History Tobacco Use [...] 4:00 PM EDT Telemedicine Cancer Center at [address] [place] [address] Ronald Mills MD [address] [place] [address] documented as of this encounter Visit Diagnoses Not on filedocumented in this encounter Additional Health Concerns Infection Onset Date Last Indicated Resolved Time COVID-19 03/05/2022 03/05/2022 03/15/2022 7:18 PM EDT Assessment Noted Time PHQ-9 Depression Total Score: 2 11/07/19 19 2:06 PM EDT documented as of this encounter Care Teams Chef Teacher Relationship Specialty Start Date End Date Caitlyn Bowie MD 3400 [facility] [address] 1 [place] [address] PCP - General Internal Medicine 05/06/21 Henry Kelly MD Pulmonary Department 175 [facility], [address] [place] [address] Physician Pulmonary Disease 09/06/17 06/22/20 documented as of this encounter
--- OUTSIDE RECORDS SUMMARY | 2024-11-21 11:30 | XMS_ITS | Encounter Summary ---
Author Organization [facility] and [facility] Address [address] [place] [address] Care Team Providers Care Seafood Preparer Name Role Phone Caitlyn Bowie MD Primary Care Provider +1- [phone] Encounter Details Date Type Department Care Team (Late st Contact Info) Description 02/02/2017 Scanned Document [facility] Health Information Management [address] [place] [address] External, Provider Social History Tobacco Use Types [...] [facility] 240 [facility] Building [address] [place], [place] [phone] Ronald Mills MD 240 [facility] A1 [place] [address] documented as of this encounter Visit Diagnoses Not on filedocumented in this encounter Additional Health Concerns Infection Onset Date Last Indicated Resolved Time COVID-19 03/05/2022 03/05/2022 03/15/2022 7:18 PM EDT documented as of this encounter Care Teams Seafood Preparer Relationship Specialty Start Date End Date Caitlyn Bowie MD 3400 [facility] 1 [place] [address] PCP - General Internal Medicine 05/06/21 Henry Kelly MD Pulmonary Department 175 [facility], [address] [place] [address] Physician Pulmonary Disease 09/06/17 06/22/20 documented as of this encounter
--- OUTSIDE RECORDS SUMMARY | 2024-11-21 11:30 | XMS_ITS | Encounter Summary ---
Author Organization [facility] and [facility] Address [address] [place] [address] Care Team Providers Care Animation Artist Name Role Phone Caitlyn Bowie MD Primary Care Provider +1- [phone] Encounter Details Date Type Department Care Team (Late st Contact Info) Description 02/20/2017 Scanned Document [facility] Health Information Management [address] [place] [address] External, Provider Social History Tobacco Use Types [...] [facility] 240 [facility] Building [address] [place], [place] [phone] Ronald Mills MD 240 [facility] Max [address] [place] [address] documented as of this encounter [...] documented as of this encounter Care Teams Animation Artist Relationship Specialty Start Date End Date Caitlyn Bowie MD 3400 [facility] 1 [place] [address] PCP - General Internal Medicine 05/06/21 Henry Kelly MD Pulmonary Department 175 [facility], [address] [place] [address] Physician Pulmonary Disease 09/06/17 06/22/20 documented as of this encounter
--- OUTSIDE RECORDS SUMMARY | 2024-11-21 11:30 | XMS_ITS | Encounter Summary ---
Author Organization [facility] and [facility] Address [address] [place] [address] Care Team Providers Care Wood Lather Name Role Phone Caitlyn Bowie MD Primary Care Provider +1- [phone] Encounter Details Date Type Department Care Team (Late st Contact Info) Description 02/20/2017 Scanned Document [facility] Health Information Management [address] [place] [address] External, Provider Social History Tobacco Use Types [...] [facility] [place] [facility] 240 [facility] Building [address] [place], [place] [phone] Ronald Mills MD 240 [facility] Max [address] [place] [address] documented as of this encounter [...] as of this encounter Care Teams Wood Lather Relationship Specialty Start Date End Date Caitlyn Bowie MD 3400 [facility] [address] [place] [address] PCP - General Internal Medicine 05/06/21 Henry Kelly MD Pulmonary Department 175 [facility], [address] [place] [address] Physician Pulmonary Disease 09/06/17 06/22/20 documented as of this encounter
--- OUTSIDE RECORDS SUMMARY | 2024-11-21 11:30 | XMS_ITS | Encounter Summary ---
Author Organization [facility] Address [address] [place] [address] Care Team Providers Care Radio Mechanic Apprentice Name Role Phone Caitlyn Bowie MD Primary Care Provider +1- [phone] Reason for Visit * Reason Onset Date Comments Appointment 10/31/2024 Encounter Details Date Type Department Care Team (Late st Contact Info) Description 10/31/2024 Telephone [facility] at [address] [address] Ronald Mills MD [address] [place] [address] Appointment Social History Tobacco Use Types [...] Raquel Rojas - 10/31/2024 2:23 PM EDT help desk administrator called in and stated wanted patient to schedule an appointment on 04/25 at 4 pm in person in [place]. Patient said that appointment is too late in day to come in person, would a telemed be ok? documented in this encounter Plan of Treatment Upcoming Encounters Date Type Department Care Team ([facility] st Contact Info) Description 04/25/2025 4:00 PM EDT Telemedicine Cancer Center at [facility] 240 [facility] [address] [place] [address] Ronald Mills MD 240 [facility] [address] [place] [address] documented as of this encounter Visit Diagnoses Not on filedocumented in this encounter Additional Health Concerns Assessment Noted Time PHQ-9 Depression Total Score: 2 11/07/19 19 2:06 PM EDT documented as of this encounter Care Teams Radio Mechanic Apprentice Relationship Specialty Start Date End Date Caitlyn Bowie MD [address] [address] PCP - General Internal Medicine 05/06/21 documented as of this encounter
--- OUTSIDE RECORDS SUMMARY | 2024-11-21 11:30 | XMS_ITS | Encounter Summary ---
Author Organization [facility] Address [address] [place] [address] Care Team Providers Care Design Engineering Manager Name Role Phone Caitlyn Bowie MD Primary Care Provider +1- [phone] Encounter Details Date Type Department Care Team (Late Contact Info) Description 09/18/2020 Scanned Document [facility] Health Information Management [address] [place] [address] External, Provider Social History Tobacco Use Types [...] at [facility] 240 [facility] Building [address] [place], [place] [phone] Ronald Mills MD [address] [place] [address] [address] [place] [address] documented as of this encounter [...] as of this encounter Care Teams Design Engineering Manager Relationship Specialty Start Date End Date Caitlyn Bowie MD [address] [address] PCP - General Internal Medicine 05/06/21 documented as of this encounter
--- OUTSIDE RECORDS SUMMARY | 2024-11-21 11:31 | XMS_ITS | Clinical Summary ---
Author Organization [facility] Address [address] [place] [address] Care Team Providers Care Cable Spooler Name Role Phone Brennan Burnett MD Primary Care Provider [phone] Allergies Active Allergy Reactions Criticality Noted Date [...] age to complete this topic Care Teams Cable Spooler Relationship Specialty Start Date End Date Brennan Burnett MD [address] [place] [address] PCP - General Internal Medicine 07/06/20
--- OUTSIDE RECORDS SUMMARY | 2024-11-21 11:31 | XMS_ITS | Encounter Summary ---
Author Organization [facility] and [facility] Address [address] [place] [address] Care Team Providers Care District Traffic Chief Name Role Phone Caitlyn Bowie MD Primary Care Provider +1- [phone] Encounter Details Date Type Department Care Team (Late st Contact Info) Description 04/26/2017 Scanned Document Cardiovascular Medicine at [address] [place] [address] Norma Renee MD [address] [place] [phone] Social History Tobacco Use Types Packs/Day Years [...] 4:00 PM EDT Telemedicine Cancer Center at [address] [place], [place] [phone] Ronald Mills MD [address] [place] [address] [address] [place] [address] documented as of this encounter Visit Diagnoses Not on filedocumented in this encounter Additional Health Concerns Infection Onset Date Last Indicated Resolved Time COVID-19 03/05/2022 03/05/2022 03/15/2022 7:18 PM EDT documented as of this encounter Care Teams District Traffic Chief Relationship Specialty Start Date End Date Caitlyn Bowie MD 3400 [facility] 1 [place] [address] PCP - General Internal Medicine 05/06/21 Henry Kelly MD Pulmonary Department 175 [facility], [address] [place] [address] Physician Pulmonary Disease 09/06/17 06/22/20 documented as of this encounter
--- OUTSIDE RECORDS SUMMARY | 2024-11-21 11:31 | XMS_ITS | Encounter Summary ---
Author Organization [facility] Address 20 [place] [address] Care Team Providers Care Commercial Correspondent Name Role Phone Caitlyn Bowie MD Primary Care Provider +1- [phone] Encounter Details Date Type Department Care Team (Latest Contact Info) Description 04/15/2013 Transcribed Orders [facility] [address] [place] [address] Tian Atwood MD [address] [facility] 102 [place] [address] Unspecified hypothyroidism (Primary Dx) Social [...] Center at [facility] 240 [facility] Building [address] [place] [address] Ronald Mills MD 240 [facility] A1 [place] [address] documented as of this encounter Results * Copper, serum total (YH) (04/15/2013 4:31 PM EDT) Copper, Serum Total SEE BELOW [facility] Comment: Test ?Result ? Flag ??Unit ?RefValue Copper, S ? 1.35 ? mcg/mL ??0.75-1.45 04/15/2013 4:31 PM EDT us Tian Atwood MD LAB BLOOD ORDERABLES Final R esult Performing Organization Address City/State/[facility] Co de Phone Number [facility] [address] [place] [address] documented in this encounter Visit Diagnoses Diagnosis Unspecified hypothyroidism- Primary documented in this encounter Additional Health Concerns Infection Onset Date Last Indicated Resolved Time COVID-19 03/05/2022 03/05/2022 03/15/2022 7:18 PM EDT documented as of this encounter Care Teams Commercial Correspondent Relationship Specialty Start Date End Date Caitlyn Bowie MD 3400 [facility] 1 [place] [address] PCP - General Internal Medicine 05/06/21 Henry Kelly MD Pulmonary Department 175 [facility], [address] [place] [address] Physician Pulmonary Disease 09/06/17 06/22/20 documented as of this encounter
--- OUTSIDE RECORDS SUMMARY | 2024-11-21 11:31 | XMS_ITS | Encounter Summary ---
Author Organization [facility] Address 20 [place] [address] Care Team Providers Care Dining Manager Name Role Phone Caitlyn Bowie MD Primary Care Provider +1- [phone] Encounter Details Date Type Department Care Team (Late st Contact Info) Description 09/15/2020 Scanned Document Cancer Center at [address] [address] External, Provider Social History Tobacco Use Types [...] [facility] 240 [facility] Building [address] [place], [place] [phone] Ronald Mills MD [address] [place] [address] [address]1 [place] [address] documented as of this encounter [...] documented as of this encounter Care Teams Dining Manager Relationship Specialty Start Date End Date Caitlyn Bowie MD [address] [address] PCP - General Internal Medicine 05/06/21 documented as of this encounter
--- OUTSIDE RECORDS SUMMARY | 2024-11-21 11:31 | XMS_ITS | Encounter Summary ---
Author Organization [facility] and [facility] Address [address] [place] [address] Care Team Providers Care Packaging Design Engineer Name Role Phone Caitlyn Bowie MD Primary Care Provider +1- [phone] Encounter Details Date Type Department Care Team (Late st Contact Info) Description 09/16/2020 Scanned Document [facility] Health Information Management [address] [place] [address] External, Provider Social History Tobacco Use Types [...] at [facility] 240 [facility] Building [address] [place], [place] [phone] Ronald Mills MD [address] [place] [address] [address] [place] [address] documented as of this encounter Procedures Procedure [...] as of this encounter Care Teams Packaging Design Engineer Relationship Specialty Start Date End Date Caitlyn Bowie MD [address] [address] PCP - General Internal Medicine 05/06/21 documented as of this encounter
--- OUTSIDE RECORDS SUMMARY | 2024-11-21 11:31 | XMS_ITS | Encounter Summary ---
Author Organization [facility] and [facility] Address 20 [place] [address] Care Team Providers Care Apn Name Role Phone Caitlyn Bowie MD Primary Care Provider +1- [phone] Encounter Details Date Type Department Care Team (Late st Contact Info) Description 08/29/2019 Scanned Document Cancer Center at [address] [address] External, Provider Social History Tobacco Use Types [...] [facility] at [facility] 240 [facility] Building [address] [place], [place] [phone] Ronald Mills MD [address] [place] [address] [address]1 [place] [address] documented as of this encounter [...] documented as of this encounter Care Teams Apn Relationship Specialty Start Date End Date Caitlyn Bowie MD 3400 [facility] 1 [place] [address] PCP - General Internal Medicine 05/06/21 Henry Kelly MD Pulmonary Department 175 [facility], [address] [place] [address] Physician Pulmonary Disease 09/06/17 06/22/20 documented as of this encounter
--- OUTSIDE RECORDS SUMMARY | 2024-11-21 11:31 | XMS_ITS | Encounter Summary ---
Author Organization [facility] and [facility] Address [address] [place] [address] Care Team Providers Care Corporate Counselor Name Role Phone Caitlyn Bowie MD Primary Care Provider +1- [phone] Encounter Details Date Type Department Care Team (Late st Contact Info) Description 11/29/2019 Scanned Document [facility] Health Information Management [address] [place] [address] External, Provider Social History Tobacco Use Types [...] [facility] Building [address] [place], [place] [phone] Ronald Mills MD [address] [place] [address] [address] [place] [address] documented as of this encounter [...] as of this encounter Care Teams Corporate Counselor Relationship Specialty Start Date End Date Caitlyn Bowie MD 3400 [facility] 1 [place] [address] PCP - General Internal Medicine 05/06/21 Henry Kelly MD Pulmonary Department 175 [facility], [address] [place] [address] Physician Pulmonary Disease 09/06/17 06/22/20 documented as of this encounter
--- OUTSIDE RECORDS SUMMARY | 2024-11-21 11:31 | XMS_ITS | Encounter Summary ---
Author Organization [facility] and [facility] Address [address] [place] [address] Care Team Providers Care Mine Safety Manager Name Role Phone Caitlyn Bowie MD Primary Care Provider +1- [phone] Encounter Details Date Type Department Care Team (Late st Contact Info) Description 06/27/2019 Scanned Document Onco-Oncology Program at [address] [place] [address] Norma Renee MD [address] [place] [address] 2 [place] [address] Social History Tobacco Use Types [...] 4:00 PM EDT Telemedicine Cancer Center at [address] [place], [place] [phone] Ronald Mills MD 240 [facility] A1 [place] [address] documented as of this encounter Visit Diagnoses Not on filedocumented in this encounter Additional Health Concerns Infection Onset Date Last Indicated Resolved Time COVID-19 03/05/2022 03/05/2022 03/15/2022 7:18 PM EDT Assessment Noted Time PHQ-9 Depression Total Score: 2 11/07/19 19 2:06 PM EDT documented as of this encounter Care Teams Mine Safety Manager Relationship Specialty Start Date End Date Caitlyn Bowie MD 3400 [facility] 1 [place] [address] PCP - General Internal Medicine 05/06/21 Henry Kelly MD Pulmonary Department 175 [facility], [address] [place] [address] Physician Pulmonary Disease 09/06/17 06/22/20 documented as of this encounter
--- OUTSIDE RECORDS SUMMARY | 2024-11-21 11:31 | XMS_ITS | Encounter Summary ---
Author Organization [facility] Address [address] [place] [address] Care Team Providers Care Shore Hand Dredge Or Barge Name Role Phone Caitlyn Bowie MD Primary Care Provider +1- [phone] Encounter Details Date Type Department Care Team (Late st Contact Info) Description 01/28/2013 Scanned Document Thoracic Oncology Program at [address] [address] Solo Henry MD [address] [place] [address] Social History Tobacco Use Types Packs/Day [...] [facility] Building [address] [place], [place] [address] Ronald Mills MD 240 [facility] Max [address] [place] [address] documented as of this encounter Visit Diagnoses Not on filedocumented in this encounter Additional Health Concerns Infection Onset Date Last Indicated Resolved Time COVID-19 03/05/2022 03/05/2022 03/15/2022 7:18 PM EDT documented as of this encounter Care Teams Shore Hand Dredge Or Barge Relationship Specialty Start Date End Date Caitlyn Bowie MD 3400 [facility] Max 1 [place] [address] PCP - General Internal Medicine 05/06/21 Henry Kelly MD Pulmonary Department 175 [facility], [address] [place] [address] Physician Pulmonary Disease 09/06/17 06/22/20 documented as of this encounter
--- OUTSIDE RECORDS SUMMARY | 2024-11-21 11:31 | XMS_ITS | Encounter Summary ---
Author Organization [facility] Address [address] [place] [address] Care Team Providers Care Land Reclamation Specialist Name Role Phone Caitlyn Bowie MD Primary Care Provider +1- [phone] Encounter Details Date Type Department Care Team (Late st Contact Info) Description 08/29/2019 Scanned Document Cancer Center at [address] [address] External, Provider Social History Tobacco Use Types [...] [facility] Building [address] [place], [place] [phone] Ronald Mills MD [address] [place] [address] [address]1 [place] [address] documented as of this encounter [...] as of this encounter Care Teams Land Reclamation Specialist Relationship Specialty Start Date End Date Caitlyn Bowie MD 3400 [facility] 1 [place] [address] PCP - General Internal Medicine 05/06/21 Henry Kelly MD Pulmonary Department 175 [facility], [address] [place] [address] Physician Pulmonary Disease 09/06/17 06/22/20 documented as of this encounter
--- OUTSIDE RECORDS SUMMARY | 2024-11-21 11:31 | XMS_ITS | Encounter Summary ---
Author Organization [facility] Address 20 [place] [address] Care Team Providers Care Manager Telecom Name Role Phone Caitlyn Bowie MD Primary Care Provider +1- [phone] Encounter Details Date Type Department Care Team (Late st Contact Info) Description 01/28/2013 Scanned Document Thoracic Oncology Program at [address] [address] Solo Henry MD [address] [place] [address] Social History Tobacco Use Types Packs/Day [...] Center at [facility] 240 [facility] Building [address] [place], [place] [address] Ronald Mills MD 240 [facility] Max [address] [place] [address] documented as of this encounter Visit Diagnoses Not on filedocumented in this encounter Additional Health Concerns Infection Onset Date Last Indicated Resolved Time COVID-19 03/05/2022 03/05/2022 03/15/2022 7:18 PM EDT documented as of this encounter Care Teams Manager Telecom Relationship Specialty Start Date End Date Caitlyn Bowie MD 3400 [facility] Max 1 [place] [address] PCP - General Internal Medicine 05/06/21 Henry Kelly MD Pulmonary Department 175 [facility], [address] [place] [address] Physician Pulmonary Disease 09/06/17 06/22/20 documented as of this encounter
--- OUTSIDE RECORDS SUMMARY | 2024-11-21 11:31 | XMS_ITS | Encounter Summary ---
Author Organization [facility] and [facility] Address [address] [place] [address] Care Team Providers Care Light Fixture Servicer Name Role Phone Caitlyn Bowie MD Primary Care Provider +1- [phone] Encounter Details Date Type Department Care Team (Late st Contact Info) Description 01/22/2020 Scanned Document Lab for [facility] [address] [place] [address] Kerwin Menjivar MD 260 [facility] 3 [place] [address] Social History Tobacco Use Types [...] PM EDT Telemedicine Cancer Center at [address] [place] [address] Ronald Mills MD 240 [facility] Max [address]1 [place] [address] documented as of this encounter Visit Diagnoses Not on filedocumented in this encounter Additional Health Concerns Infection Onset Date Last Indicated Resolved Time COVID-19 03/05/2022 03/05/2022 03/15/2022 7:18 PM EDT Assessment Noted Time PHQ-9 Depression Total Score: 2 11/07/19 19 2:06 PM EDT documented as of this encounter Care Teams Light Fixture Servicer Relationship Specialty Start Date End Date Caitlyn Bowie MD [address] [address] PCP - General Internal Medicine 05/06/21 Henry Kelly MD Pulmonary Department [address] [place] [address], [address] [place] [address] Physician Pulmonary Disease 09/06/17 06/22/20 documented as of this encounter
--- OUTSIDE RECORDS SUMMARY | 2024-11-21 11:31 | XMS_ITS | Encounter Summary ---
Author Organization [facility] and [facility] Address [address] [place] [address] Care Team Providers Care Digital Communications Manager Name Role Phone Caitlyn Bowie MD Primary Care Provider +1- [phone] Encounter Details Date Type Department Care Team (Late st Contact Info) Description 07/01/2019 Scanned Document Onco-Oncology Program at [address] [place] [address] Norma Renee MD [address] [place] [address] 2 [place] [phone] Social History Tobacco Use Types Packs/Day Years [...] 4:00 PM EDT Tele[facility]icine Cancer Center at [address] [place], [place] [address] Ronald Mills MD 240 [facility] [address] [place] [address] documented as of this encounter Visit Diagnoses Not on filedocumented in this encounter Additional Health Concerns Infection Onset Date Last Indicated Resolved Time COVID-19 03/05/2022 03/05/2022 03/15/2022 7:18 PM EDT Assessment Noted Time PHQ-9 Depression Total Score: 2 11/07/19 19 2:06 PM EDT documented as of this encounter Care Teams Digital Communications Manager Relationship Specialty Start Date End Date Caitlyn Bowie MD 3400 [facility] 1 [place] [address] PCP - General Internal Medicine 05/06/21 Henry Kelly MD Pulmonary Department 175 [facility], [address] [place] [address] Physician Pulmonary Disease 09/06/17 06/22/20 documented as of this encounter
--- OUTSIDE RECORDS SUMMARY | 2024-11-21 11:31 | XMS_ITS | Encounter Summary ---
Author Organization [facility] and [facility] Address [address] [place] [address] Care Team Providers Care Ed Tech Name Role Phone Caitlyn Bowie MD Primary Care Provider +1- [phone] Encounter Details Date Type Department Care Team (Late st Contact Info) Description 12/16/2016 Scanned Document [facility] Health Information Management [address] [place] [address] External, Provider Social History Tobacco Use Types [...] [facility] 240 [facility] Building [address] [place], [place] [phone] Ronald Mills MD 240 [facility] Max [address] [place] [address] documented as of this encounter [...] as of this encounter Care Teams Ed Tech Relationship Specialty Start Date End Date Caitlyn Bowie MD 3400 [facility] 1 [place] [address] PCP - General Internal Medicine 05/06/21 Henry Kelly MD Pulmonary Department 175 [facility], [address] [place] [address] Physician Pulmonary Disease 09/06/17 06/22/20 documented as of this encounter
--- OUTSIDE RECORDS SUMMARY | 2024-11-21 11:31 | XMS_ITS | Encounter Summary ---
Author Organization [facility] and [facility] Address [address] [place] [address] Care Team Providers Care Applications Sales Representative Name Role Phone Caitlyn Bowie MD Primary Care Provider +1- [phone] Encounter Details Date Type Department Care Team (Late st Contact Info) Description 09/15/2020 Scanned Document INTERFACE DEFAULT [address] [place] [address] System, Provider Not In Social History Tobacco [...] at [facility] 240 [facility] [address] [place] [address] Ronald Mills MD [address] [place] [address] [address] [place] [address] documented as of this encounter Visit Diagnoses Not on filedocumented in this encounter Additional Health Concerns Infection Onset Date Last Indicated Resolved Time COVID-19 03/05/2022 03/05/2022 03/15/2022 7:18 PM EDT Assessment Noted Time PHQ-9 Depression Total Score: 2 11/07/19 19 2:06 PM EDT documented as of this encounter Care Teams Applications Sales Representative Relationship Specialty Start Date End Date Caitlyn Bowie MD [address] [address] PCP - General Internal Medicine 05/06/21 documented as of this encounter
--- OUTSIDE RECORDS SUMMARY | 2024-11-21 11:31 | XMS_ITS | Encounter Summary ---
Author Organization [facility] and [facility] Address [address] [place] [address] Care Team Providers Care Dip Dyer Name Role Phone Caitlyn Bowie MD Primary Care Provider +1- [phone] Encounter Details Date Type Department Care Team (Late st Contact Info) Description 07/26/2012 Abstract [facility] Health Information Management [address] [place] [address] [place], Primary Care [address] [place] [address] Social History Tobacco Use Types Packs/Day Years [...] 4:00 PM EDT Telemedicine Cancer Center at [address] [place], [place] [address] Ronald Mills MD [address] [place] [address] documented as of this encounter Visit Diagnoses Not on filedocumented in this encounter Additional Health Concerns Infection Onset Date Last Indicated Resolved Time COVID-19 03/05/2022 03/05/2022 03/15/2022 7:18 PM EDT documented as of this encounter Care Teams Dip Dyer Relationship Specialty Start Date End Date Caitlyn Bowie MD 3400 [facility] 1 [place] [address] PCP - General Internal Medicine 05/06/21 Henry Kelly MD Pulmonary Department 175 [facility], [address] [place] [address] Physician Pulmonary Disease 09/06/17 06/22/20 documented as of this encounter
--- OUTSIDE RECORDS SUMMARY | 2024-11-21 11:31 | XMS_ITS | Encounter Summary ---
Author Organization [facility] and [facility] Address [address] [place] [address] Care Team Providers Care Sewing Supervisor Name Role Phone Caitlyn Bowie MD Primary Care Provider +1- [phone] Encounter Details Date Type Department Care Team (Late st Contact Info) Description 12/16/2016 Scanned Document [facility] Health Information Management [address] [place] [address] External, Provider Social History Tobacco Use Types [...] [facility] 240 [facility] Building [address] [place], [place] [address] Ronald Mills MD 240 [facility] [address] [place] [address] documented as of this [...] as of this encounter Care Teams Sewing Supervisor Relationship Specialty Start Date End Date Caitlyn Bowie MD 3400 [facility] 1 [place] [address] PCP - General Internal Medicine 05/06/21 Henry Kelly MD Pulmonary Department 175 [facility], [address] [place] [address] Physician Pulmonary Disease 09/06/17 06/22/20 documented as of this encounter
--- OUTSIDE RECORDS SUMMARY | 2024-11-21 11:31 | XMS_ITS | Encounter Summary ---
Author Organization [facility] and [facility] Address [address] [place] [address] Care Team Providers Care Account Resolution Analyst Name Role Phone Caitlyn Bowie MD Primary Care Provider +1- [phone] Encounter Details Date Type Department Care Team (Late st Contact Info) Description 07/12/2019 Scanned Document Onco-Oncology Program at [address] [place] [address] Norma Renee MD [address] [place] [address] 2 [place] [address] Social History Tobacco Use Types [...] PM EDT Telemedicine Cancer Center at [address] [place], [place] [address] Ronald Mills MD 240 [facility] A1 [place] [address] documented as of this encounter Visit Diagnoses Not on filedocumented in this encounter Additional Health Concerns Infection Onset Date Last Indicated Resolved Time COVID-19 03/05/2022 03/05/2022 03/15/2022 7:18 PM EDT Assessment Noted Time PHQ-9 Depression Total Score: 2 11/07/19 19 2:06 PM EDT documented as of this encounter Care Teams Account Resolution Analyst Relationship Specialty Start Date End Date Caitlyn Bowie MD 3400 [facility] 1 [place] [address] PCP - General Internal Medicine 05/06/21 Henry Kelly MD Pulmonary Department 175 [facility], [address] [place] [address] Physician Pulmonary Disease 09/06/17 06/22/20 documented as of this encounter
--- OUTSIDE RECORDS SUMMARY | 2024-11-21 11:31 | XMS_ITS | Encounter Summary ---
Author Organization [facility] and [facility] Address [address] [place] [address] Care Team Providers Care Lvn Lpn Name Role Phone Caitlyn Bowie MD Primary Care Provider +1- [phone] Encounter Details Date Type Department Care Team (Late st Contact Info) Description 12/16/2016 Scanned Document [facility] Health Information Management [address] [place] [address] External, Provider Social History Tobacco Use Types [...] – [facility] 240 [facility] Building [address] [place], [place] [address] Ronald Mills MD 240 [facility] Max [address] [place] [address] documented as of this encounter [...] documented as of this encounter Care Teams Lvn Lpn Relationship Specialty Start Date End Date Caitlyn Bowie MD 3400 [facility] 1 [place] [address] PCP - General Internal Medicine 05/06/21 Henry Kelly MD Pulmonary Department 175 [facility], [address] [place] [address] Physician Pulmonary Disease 09/06/17 06/22/20 documented as of this encounter
--- OUTSIDE RECORDS SUMMARY | 2024-11-21 11:31 | XMS_ITS | Encounter Summary ---
Author Organization [facility] and [facility] Address [address] [place] [address] Care Team Providers Care Lay Out Carpenter Name Role Phone Caitlyn Bowie MD Primary Care Provider +1- [phone] Encounter Details Date Type Department Care Team (Late st Contact Info) Description 12/16/2016 Scanned Document [facility] Health Information Management [address] [place] [address] External, Provider Social History Tobacco Use Types [...] [facility] 240 [facility] Building [address] [place], [place] [address] Ronald Mills MD 240 [facility] A1 [place] [address] documented as of this encounter Visit Diagnoses Not on filedocumented in this encounter Additional Health Concerns Infection Onset Date Last Indicated Resolved Time COVID-19 03/05/2022 03/05/2022 03/15/2022 7:18 PM EDT documented as of this encounter Care Teams Lay Out Carpenter Relationship Specialty Start Date End Date Caitlyn Bowie MD 3400 [facility] 1 [place] [address] PCP - General Internal Medicine 05/06/21 Henry Kelly MD Pulmonary Department 175 [facility], [address] [place] [address] Physician Pulmonary Disease 09/06/17 06/22/20 documented as of this encounter
--- OUTSIDE RECORDS SUMMARY | 2024-11-21 11:31 | XMS_ITS | Encounter Summary ---
Author Organization [facility] and [facility] Address [address] [place] [address] Care Team Providers Care Fibrous Wallboard Inspector Name Role Phone Caitlyn Bowie MD Primary Care Provider +1- [phone] Encounter Details Date Type Department Care Team (Late Contact Info) Description 09/16/2020 Scanned Document [facility] Health Information Management [address] [place] [address] External, Provider Social History Tobacco Use [...] [facility] 240 [facility] Building [address] [place], [place] [address] Ronald Mills MD [address] [place] [address] [address] [place] [address] documented as of this encounter [...] documented as of this encounter Care Teams Fibrous Wallboard Inspector Relationship Specialty Start Date End Date Caitlyn Bowie MD [address] [address] PCP - General Internal Medicine 05/06/21 documented as of this encounter
--- OUTSIDE RECORDS SUMMARY | 2024-11-21 11:31 | XMS_ITS | Encounter Summary ---
Author Organization [facility] and [facility] Address [address] [place] [address] Care Team Providers Care Venetian Blind Cleaner And Repairer Name Role Phone Caitlyn Bowie MD Primary Care Provider +1- [phone] Encounter Details Date Type Department Care Team (Late st Contact Info) Description 06/27/2019 Scanned Document Onco-Oncology Program at [address] [place] [address] Norma Renee MD [address] [place] [address] 2 [place] [address] Social History Tobacco Use Types [...] PM EDT Telemedicine Cancer Center at [address] [place], [place] [address] Ronald Mills MD 240 [facility] A1 [place] [address] documented as of this encounter Visit Diagnoses Not on filedocumented in this encounter Additional Health Concerns Infection Onset Date Last Indicated Resolved Time COVID-19 03/05/2022 03/05/2022 03/15/2022 7:18 PM EDT Assessment Noted Time PHQ-9 Depression Total Score: 2 11/07/19 19 2:06 PM EDT documented as of this encounter Care Teams Venetian Blind Cleaner And Repairer Relationship Specialty Start Date End Date Caitlyn Bowie MD 3400 [facility] 1 [place] [address] PCP - General Internal Medicine 05/06/21 Henry Kelly MD Pulmonary Department 175 [facility], [address] [place] [address] Physician Pulmonary Disease 09/06/17 06/22/20 documented as of this encounter
--- OUTSIDE RECORDS SUMMARY | 2024-11-21 11:31 | XMS_ITS | Encounter Summary ---
Author Organization [facility] and [facility] Address 20 [place] [address] Care Team Providers Care Manager Packaging Name Role Phone Caitlyn Bowie MD Primary Care Provider +1- [phone] Encounter Details Date Type Department Care Team (Late st Contact Info) Description 11/26/2019 Scanned Document Cancer Center at [address] [address] External, Provider Social History Tobacco Use Types [...] Health – [facility] 240 [facility] Building [address] [place], [place] [address] Ronald Mills MD [address] [place] [address] [address] [place] [address] documented as of this [...] as of this encounter Care Teams Manager Packaging Relationship Specialty Start Date End Date Caitlyn Bowie MD 3400 [facility] 1 [place] [address] PCP - General Internal Medicine 05/06/21 Henry Kelly MD Pulmonary Department 175 [facility], [address] [place] [address] Physician Pulmonary Disease 09/06/17 06/22/20 documented as of this encounter
--- OUTSIDE RECORDS SUMMARY | 2024-11-21 11:31 | XMS_ITS | Encounter Summary ---
Author Organization [facility] Address [address] [place] [address] Care Team Providers Care Lead Consultant Name Role Phone Caitlyn Bowie MD Primary Care Provider +1- [phone] Encounter Details Date Type Department Care Team (Late st Contact Info) Description 04/27/2017 Scanned Document [facility] Health Information Management [address] [place] [address] External, Provider Social History Tobacco Use Types [...] Healthcare Services [facility] 240 [facility] Building [address] [place], [place] [address] Ronald Mills MD 240 [facility] A1 [place] [address] documented as of this encounter Visit Diagnoses Not on filedocumented in this encounter Additional Health Concerns Infection Onset Date Last Indicated Resolved Time COVID-19 03/05/2022 03/05/2022 03/15/2022 7:18 PM EDT documented as of this encounter Care Teams Lead Consultant Relationship Specialty Start Date End Date Caitlyn Bowie MD 3400 [facility] 1 [place] [address] PCP - General Internal Medicine 05/06/21 Henry Kelly MD Pulmonary Department 175 [facility], [address] [place] [address] Physician Pulmonary Disease 09/06/17 06/22/20 documented as of this encounter
--- OUTSIDE RECORDS SUMMARY | 2024-11-21 11:31 | XMS_ITS | Encounter Summary ---
Author Organization [facility] and [facility] Address 20 [place] [address] Care Team Providers Care Dynamic Etching Processor Name Role Phone Caitlyn Bowie MD Primary Care Provider +1- [phone] Encounter Details Date Type Department Care Team (Late st Contact Info) Description 09/07/2020 Scanned Document Cardiovascular Medicine at [address] [place] [address] Norma Renee MD [address] [place] [phone] Social History Tobacco Use Types Packs/Day Years [...] PM EDT Telemedicine Cancer Center at [address] [place] [address] Ronald Mills MD [address] [place] [address] [address]1 [place] [address] documented as of this encounter Visit Diagnoses Not on filedocumented in this encounter Additional Health Concerns Infection Onset Date Last Indicated Resolved Time COVID-19 03/05/2022 03/05/2022 03/15/2022 7:18 PM EDT Assessment Noted Time PHQ-9 Depression Total Score: 2 11/07/19 19 2:06 PM EDT documented as of this encounter Care Teams Dynamic Etching Processor Relationship Specialty Start Date End Date Caitlyn Bowie MD [address] [address] PCP - General Internal Medicine 05/06/21 documented as of this encounter
--- OUTSIDE RECORDS SUMMARY | 2024-11-21 11:31 | XMS_ITS | Encounter Summary ---
Author Organization [facility] and [facility] Address [address] [place] [address] Care Team Providers Care Sewing Department Supervisor Name Role Phone Caitlyn Bowie MD Primary Care Provider +1- [phone] Encounter Details Date Type Department Care Team (Late st Contact Info) Description 12/03/2019 Scanned Document [facility] Health Information Management [address] [place] [address] External, Provider Social History Tobacco Use Types [...] [facility] Building [address] [place] [address] Ronald Mills MD [address] [place] [address] [address] [place] [address] documented as of this encounter Visit Diagnoses Not on filedocumented in this encounter Additional Health Concerns Infection Onset Date Last Indicated Resolved Time COVID-19 03/05/2022 03/05/2022 03/15/2022 7:18 PM EDT Assessment Noted Time PHQ-9 Depression Total Score: 2 11/07/19 19 2:06 PM EDT documented as of this encounter Care Teams Sewing Department Supervisor Relationship Specialty Start Date End Date Caitlyn Bowie MD 3400 [facility] 1 [place] [address] PCP - General Internal Medicine 05/06/21 Henry Kelly MD Pulmonary Department 175 [facility], [address] [place] [address] Physician Pulmonary Disease 09/06/17 06/22/20 documented as of this encounter
--- OUTSIDE RECORDS SUMMARY | 2024-11-21 11:31 | XMS_ITS | Encounter Summary ---
Author Organization [facility] and [facility] Address [address] [place] [address] Care Team Providers Care Traffic Signal Repairer Name Role Phone Caitlyn Bowie MD Primary Care Provider +1- [phone] Encounter Details Date Type Department Care Team (Late st Contact Info) Description 08/16/2012 Abstract [facility] Health Information Management [address] [place] [address] [place], Primary Care [address] [place] [address] Social History Tobacco Use Types Packs/Day Years [...] PM EDT Telemedicine Cancer Center at [address] [place], [place] [address] Ronald Mills MD 240 [facility] Max [address] [place] [address] documented as of this encounter Visit Diagnoses Not on filedocumented in this encounter Additional Health Concerns Infection Onset Date Last Indicated Resolved Time COVID-19 03/05/2022 03/05/2022 03/15/2022 7:18 PM EDT documented as of this encounter Care Teams Traffic Signal Repairer Relationship Specialty Start Date End Date Caitlyn Bowie MD 3400 [facility] 1 [place] [address] PCP - General Internal Medicine 05/06/21 Henry Kelly MD Pulmonary Department [address] [place] [address], [address] [place] [address] Physician Pulmonary Disease 09/06/17 06/22/20 documented as of this encounter
--- OUTSIDE RECORDS SUMMARY | 2024-11-21 11:31 | XMS_ITS | Encounter Summary ---
Author Organization [facility] and [facility] Address [address] [place] [address] Care Team Providers Care Utility Worker Roller Shop Name Role Phone Caitlyn Bowie MD Primary Care Provider +1- [phone] Encounter Details Date Type Department Care Team (Late Contact Info) Description 09/15/2020 Scanned Document [facility] Health Information Management [address] [place] [address] External, Provider Social History Tobacco Use Types [...] [facility] 240 [facility] Building [address] [place], [place] [id number] Ronald Mills MD [address] [place] [address] [address] [place] [address] documented as of this encounter [...] of this encounter Care Teams Utility Worker Roller Shop Relationship Specialty Start Date End Date Caitlyn Bowie MD [address] [address] PCP - General Internal Medicine 05/06/21 documented as of this encounter
--- OUTSIDE RECORDS SUMMARY | 2024-11-21 11:31 | XMS_ITS | Encounter Summary ---
Author Organization [facility] and [facility] Address [address] [place] [address] Care Team Providers Care Pickup Driver Name Role Phone Caitlyn Bowie MD Primary Care Provider +1- [phone] Encounter Details Date Type Department Care Team (Late st Contact Info) Description 12/16/2016 Scanned Document [facility] Health Information Management [address] [place] [address] External, Provider Social History Tobacco Use Types [...] [facility] 240 [facility] Building [address] [place], [place] [phone] Ronald Mills MD 240 [facility] A1 [place] [address] documented as of this encounter [...] documented as of this encounter Care Teams Pickup Driver Relationship Specialty Start Date End Date Caitlyn Bowie MD [facility] 1 [place] [address] PCP - General Internal Medicine 05/06/21 Henry Kelly MD Pulmonary Department [address] [facility], [address] [place] [address] Physician Pulmonary Disease 09/06/17 06/22/20 documented as of this encounter
--- OUTSIDE RECORDS SUMMARY | 2024-11-21 11:31 | XMS_ITS | Encounter Summary ---
Author Organization [facility] Address [address] [place] [address] Care Team Providers Care Superintendent Renting Managing Name Role Phone Caitlyn Bowie MD Primary Care Provider +1- [phone] Encounter Details Date Type Department Care Team (Late st Contact Info) Description 12/19/2016 Scanned Document [facility] Health Information Management [address] [place] [address] External, Provider Social History Tobacco Use Types [...] [facility] 240 [facility] Building [address] [place], [place] [id number] Ronald Mills MD 240 [facility] Max [address]1 [place] [address] documented as of this encounter [...] as of this encounter Care Teams Superintendent Renting Managing Relationship Specialty Start Date End Date Caitlyn Bowie MD [facility]0 [facility] 1 [place] [address] PCP - General Internal Medicine 05/06/21 Henry Kelly MD Pulmonary Department 175 [facility], [address] [place] [address] Physician Pulmonary Disease 09/06/17 06/22/20 documented as of this encounter
--- OUTSIDE RECORDS SUMMARY | 2024-11-21 11:31 | XMS_ITS | Encounter Summary ---
Author Organization [facility] and [facility] Address [address] [place] [address] Care Team Providers Care Weaving Instructor Name Role Phone Caitlyn Bowie MD Primary Care Provider +1- [phone] Encounter Details Date Type Department Care Team (Late st Contact Info) Description 06/27/2019 Scanned Document Onco-Oncology Program at [address] [place] [address] Norma Renee MD [address] [place] [address] 2 [place] [address] Social History Tobacco Use Types [...] PM EDT Telemedicine Cancer Center at [address] [place], [place] [address] Ronald Mills MD 240 [facility] A1 [place] [address] documented as of this encounter Visit Diagnoses Not on filedocumented in this encounter Additional Health Concerns Infection Onset Date Last Indicated Resolved Time COVID-19 03/05/2022 03/05/2022 03/15/2022 7:18 PM EDT Assessment Noted Time PHQ-9 Depression Total Score: 2 11/07/19 19 2:06 PM EDT documented as of this encounter Care Teams Weaving Instructor Relationship Specialty Start Date End Date Caitlyn Bowie MD 3400 [facility] 1 [place] [address] PCP - General Internal Medicine 05/06/21 Henry Kelly MD Pulmonary Department 175 [facility], [address] [place] [address] Physician Pulmonary Disease 09/06/17 06/22/20 documented as of this encounter
--- OUTSIDE RECORDS SUMMARY | 2024-11-21 11:31 | XMS_ITS | Encounter Summary ---
Author Organization [facility] and [facility] Address 20 [place] [address] Care Team Providers Care Surveillance Camera Technician Name Role Phone Caitlyn Bowie MD Primary Care Provider +1- [phone] Encounter Details Date Type Department Care Team (Late st Contact Info) Description 06/21/2012 Abstract Head & Neck Cancers Program at [address] [address] Mikel Lloyd MD [address] [place] [phone] (Fax) Social History Tobacco Use Types Packs/Day [...] [facility] 240 [facility] Building [address] [place] [address] Ronald Mills MD 240 [facility] Max [address]1 [place] [address] documented as of this encounter Visit Diagnoses Not on filedocumented in this encounter Additional Health Concerns Infection Onset Date Last Indicated Resolved Time COVID-19 03/05/2022 03/05/2022 03/15/2022 7:18 PM EDT documented as of this encounter Care Teams Surveillance Camera Technician Relationship Specialty Start Date End Date Caitlyn Bowie MD 3400 [facility] 1 [place] [address] PCP - General Internal Medicine 05/06/21 Henry Kelly MD Pulmonary Department [address] [place] [address], [address] [place] [address] Physician Pulmonary Disease 09/06/17 06/22/20 documented as of this encounter
--- OUTSIDE RECORDS SUMMARY | 2024-11-21 11:31 | XMS_ITS | Encounter Summary ---
Author Organization [facility] Address [address] [place] [address] Care Team Providers Care Commercial Airplane Pilot Name Role Phone Caitlyn Bowie MD Primary Care Provider +1- [phone] Encounter Details Date Type Department Care Team (Late st Contact Info) Description 12/16/2016 Scanned Document [facility] Health Information Management [address] [place] [phone] External, Provider Social History Tobacco Use Types [...] at [facility] 240 [facility] Building [address] [place], [place] [phone] Ronald Mills MD 240 [facility] Max [address]1 [place] [address] documented as of this encounter [...] as of this encounter Care Teams Commercial Airplane Pilot Relationship Specialty Start Date End Date Caitlyn Bowie MD 3400 [facility] 1 [place] [address] PCP - General Internal Medicine 05/06/21 Henry Kelly MD Pulmonary Department 175 [facility], [address] [place] [address] Physician Pulmonary Disease 09/06/17 06/22/20 documented as of this encounter
--- OUTSIDE RECORDS SUMMARY | 2024-11-21 11:31 | XMS_ITS | Encounter Summary ---
Author Organization [facility] Address [address] [place] [address] Care Team Providers Care Medication Coordinator Name Role Phone Caitlyn Bowie MD Primary Care Provider +1- [phone] Encounter Details Date Type Department Care Team (Late Contact Info) Description 09/09/2020 Scanned Document [facility] Health Information Management [address] [place] [address] External, Provider Social History Tobacco Use Types [...] Cancer Center at [facility] 240 [facility] Building [address] [place], [place] [address] Ronald Mills MD [address] [place] [address] [address]1 [place] [address] documented as of [...] documented as of this encounter Care Teams Medication Coordinator Relationship Specialty Start Date End Date Caitlyn Bowie MD [address] [address] PCP - General Internal Medicine 05/06/21 documented as of this encounter
--- OUTSIDE RECORDS SUMMARY | 2024-11-21 11:31 | XMS_ITS | Encounter Summary ---
Author Organization [facility] Address [address] [place] [address] Care Team Providers Care Supervisor Dry Paste Name Role Phone Caitlyn Bowie MD Primary Care Provider +1- [phone] Encounter Details Date Type Department Care Team (Late st Contact Info) Description 04/18/2013 Documentation Hematology Program at [address] [address] Isis Ragland RN Social History Tobacco Use [...] [facility] at [facility] 240 [facility] Building [address] [place], [place] [phone] Ronald Mills MD [address] [place] [address] [address]1 [place] [address] documented as of this encounter Visit Diagnoses Not on filedocumented in this encounter Additional Health Concerns Infection Onset Date Last Indicated Resolved Time COVID-19 03/05/2022 03/05/2022 03/15/2022 7:18 PM EDT documented as of this encounter Care Teams Supervisor Dry Paste Relationship Specialty Start Date End Date Caitlyn Bowie MD 3400 [facility] 1 [place] [address] PCP - General Internal Medicine 05/06/21 Henry Kelly MD Pulmonary Department 175 [facility], [address] [place] [address] Physician Pulmonary Disease 09/06/17 06/22/20 documented as of this encounter
--- OUTSIDE RECORDS SUMMARY | 2024-11-21 11:32 | XMS_ITS | Encounter Summary ---
Author Organization [facility] and [facility] Address [address] [place] [address] Care Team Providers Care Room Service Manager Name Role Phone Caitlyn Bowie MD Primary Care Provider +1- [phone] Encounter Details Date Type Department Care Team (Late st Contact Info) Description 04/11/2021 Scanned Document INTERFACE DEFAULT [address] [place] [address] System, Provider Not In Social History Tobacco [...] Affairs [facility] 240 [facility] Building [address] [place], [place] [address] Ronald Mills MD [address] [place] [address] [address] [place] [address] documented as of this encounter [...] as of this encounter Care Teams Room Service Manager Relationship Specialty Start Date End Date Caitlyn Bowie MD [address] [address] PCP - General Internal Medicine 05/06/21 documented as of this encounter
--- OUTSIDE RECORDS SUMMARY | 2024-11-21 11:32 | XMS_ITS | Encounter Summary ---
Author Organization [facility] and [facility] Address [address] [place] [address] Care Team Providers Care Patent Agent Name Role Phone Caitlyn Bowie MD Primary Care Provider +1- [phone] Encounter Details Date Type Department Care Team (Late st Contact Info) Description 04/22/2021 Scanned Document INTERFACE DEFAULT [address] [place] [address] System, Provider Not In Social History Tobacco [...] – [facility] 240 [facility] Building [address] [place], [place] [phone] Ronald Mills MD [address] [place] [address] [address] [place] [address] documented as of this encounter [...] as of this encounter Care Teams Patent Agent Relationship Specialty Start Date End Date Caitlyn Bowie MD [facility] [address] [address] PCP - General Internal Medicine 05/06/21 documented as of this encounter
--- OUTSIDE RECORDS SUMMARY | 2024-11-21 11:32 | XMS_ITS | Encounter Summary ---
Author Organization [facility] and [facility] Address [address] [place] [address] Care Team Providers Care Manager Bridge Name Role Phone Caitlyn Bowie MD Primary Care Provider +1- [phone] Encounter Details Date Type Department Care Team (Late st Contact Info) Description 03/16/2021 Scanned Document INTERFACE DEFAULT [address] [place] [address] System, Provider Not In Social History Tobacco [...] Affairs [facility] [address] [facility] Building [address] [place] [address] Ronald Mills MD [address] [place] [address] [address]1 [place] [address] documented as of this encounter Visit Diagnoses Not on filedocumented in this encounter Additional Health Concerns Infection Onset Date Last Indicated Resolved Time COVID-19 03/05/2022 03/05/2022 03/15/2022 7:18 PM EDT Assessment Noted Time PHQ-9 Depression Total Score: 2 11/07/19 19 2:06 PM EDT documented as of this encounter Care Teams Manager Bridge Relationship Specialty Start Date End Date Caitlyn Bowie MD [address] [address] PCP - General Internal Medicine 05/06/21 documented as of this encounter
--- OUTSIDE RECORDS SUMMARY | 2024-11-21 11:32 | XMS_ITS | Encounter Summary ---
Author Organization [facility] Address [address] [place] [address] Care Team Providers Care Crusher Plant Operator Name Role Phone Caitlyn Bowie MD Primary Care Provider +1- [phone] Encounter Details Date Type Department Care Team (Late st Contact Info) Description 02/25/2021 Scanned Document INTERFACE DEFAULT [address] [place] [address] System, Provider Not In Social History Tobacco [...] Center at [facility] 240 [facility] Building [address] [place] [address] Ronald Mills MD [address] [place] [address] [address] [place] [address] documented as of this encounter [...] Caitlyn Bowie MD [address] [address] PCP - General Internal Medicine 05/06/21 documented as of this encounter
--- OUTSIDE RECORDS SUMMARY | 2024-11-21 11:32 | XMS_ITS | Encounter Summary ---
Author Organization [facility] and [facility] Address [address] [place] [address] Care Team Providers Care Doctor Of Audiology Name Role Phone Caitlyn Bowie MD Primary Care Provider +1- [phone] Encounter Details Date Type Department Care Team (Late st Contact Info) Description 04/02/2021 Scanned Document INTERFACE DEFAULT [address] [place] [address] System, Provider Not In Social History Tobacco [...] [facility] 240 [facility] Building [address] [place], [place] [address] Ronald Mills MD [address] [place] [address] [address] [place] [address] documented as of this encounter [...] documented as of this encounter Care Teams Doctor Of Audiology Relationship Specialty Start Date End Date Caitlyn Bowie MD [address] [address] PCP - General Internal Medicine 05/06/21 documented as of this encounter
--- OUTSIDE RECORDS SUMMARY | 2024-11-21 11:32 | XMS_ITS | Encounter Summary ---
Author Organization [facility] Address [address] [place] [address] Care Team Providers Care Oscillograph Technician Name Role Phone Caitlyn Bowie MD Primary Care Provider +1- [phone] Encounter Details Date Type Department Care Team (Late st Contact Info) Description 04/10/2021 Scanned Document INTERFACE DEFAULT [address] [place] [address] System, Provider Not In Social History Tobacco [...] [facility] Building [address] [place] [address] Ronald Mills MD [address] [place] [address] [address] [place] [address] documented as of this encounter [...] documented as of this encounter Care Teams Oscillograph Technician Relationship Specialty Start Date End Date Caitlyn Bowie MD [address] [address] PCP - General Internal Medicine 05/06/21 documented as of this encounter
--- OUTSIDE RECORDS SUMMARY | 2024-11-21 11:32 | XMS_ITS | Encounter Summary ---
Author Organization [facility] and [facility] Address [address] [place] [address] Care Team Providers Care Gluing Machine Adjuster Name Role Phone Caitlyn Bowie MD Primary Care Provider +1- [phone] Encounter Details Date Type Department Care Team (Late st Contact Info) Description 04/16/2021 Scanned Document INTERFACE DEFAULT [address] [place] [address] System, Provider Not In Social History Tobacco [...] at [facility] 240 [facility] Building [address] [place], [place] [address] Ronald Mills MD [address] [place] [address] [address] [place] [address] documented as of this encounter [...] documented as of this encounter Care Teams Gluing Machine Adjuster Relationship Specialty Start Date End Date Caitlyn Bowie MD [facility] [address] [address] PCP - General Internal Medicine 05/06/21 documented as of this encounter
--- OUTSIDE RECORDS SUMMARY | 2024-11-21 11:32 | XMS_ITS | Encounter Summary ---
Author Organization [facility] and [facility] Address [address] [place] [address] Care Team Providers Care Nicker And Breaker Name Role Phone Caitlyn Bowie MD Primary Care Provider +1- [phone] Encounter Details Date Type Department Care Team (Late st Contact Info) Description 08/21/2017 Scanned Document [facility] Health Information Management [address] [place] [address] External, Provider Social History Tobacco Use Types [...] [facility] Building [address] [place], [place] [address] Ronald Mills MD [address] [place] [address] [address] [place] [address] documented as of this encounter [...] documented as of this encounter Care Teams Nicker And Breaker Relationship Specialty Start Date End Date Caitlyn Bowie MD 3400 [facility] 1 [place] [address] PCP - General Internal Medicine 05/06/21 Henyr Kelly MD Pulmonary Department 175 [facility], [address] [place] [address] Physician Pulmonary Disease 09/06/17 06/22/20 documented as of this encounter
--- OUTSIDE RECORDS SUMMARY | 2024-11-21 11:32 | XMS_ITS | Encounter Summary ---
Author Organization [facility] Address [address] [place] [address] Care Team Providers Care Peoplesoft Hrms Developer Name Role Phone Caitlyn Bowie MD Primary Care Provider +1- [phone] Encounter Details Date Type Department Care Team (Late st Contact Info) Description 04/21/2021 Scanned Document INTERFACE DEFAULT [address] [place] [address] System, Provider Not In Social History Tobacco [...] at [facility] 240 [facility] Building [address] [place], [place] [address] Ronald Mills MD [address] [place] [address] [address] [place] [address] documented as of this encounter [...] as of this encounter Care Teams Peoplesoft Hrms Developer Relationship Specialty Start Date End Date Caitlyn Bowie MD [facility]0 [address] [address] PCP - General Internal Medicine 05/06/21 documented as of this encounter
--- OUTSIDE RECORDS SUMMARY | 2024-11-21 11:32 | XMS_ITS | Encounter Summary ---
Author Organization [facility] and [facility] Address [address] [place] [address] Care Team Providers Care Smoke Jumper Name Role Phone Caitlyn Bowie MD Primary Care Provider +1- [phone] Encounter Details Date Type Department Care Team (Late st Contact Info) Description 03/01/2017 Scanned Document Onco-Oncology Program at [address] [place] [address] Norma Renee MD [address] [place] [address] 2 [place] [address] Social History Tobacco Use Types Packs/Day Years [...] PM EDT Telemedicine Cancer Center at [address] [place] [address] Ronald Mills MD 240 [facility] A1 [place] [address] documented as of this encounter Visit Diagnoses Not on filedocumented in this encounter Additional Health Concerns Infection Onset Date Last Indicated Resolved Time COVID-19 03/05/2022 03/05/2022 03/15/2022 7:18 PM EDT documented as of this encounter Care Teams Smoke Jumper Relationship Specialty Start Date End Date Caitlyn Bowie MD 3400 [facility] Max 1 [place] [address] PCP - General Internal Medicine 05/06/21 Henry Kelly MD Pulmonary Department 175 [facility], [address] [place] [address] Physician Pulmonary Disease 09/06/17 06/22/20 documented as of this encounter
--- OUTSIDE RECORDS SUMMARY | 2024-11-21 11:32 | XMS_ITS | Encounter Summary ---
Author Organization [facility] and [facility] Address [address] [place] [address] Care Team Providers Care Shift Manager Name Role Phone Caitlyn Bowie MD Primary Care Provider +1- [phone] Encounter Details Date Type Department Care Team (Late st Contact Info) Description 03/24/2021 Scanned Document INTERFACE DEFAULT [address] [place] [address] System, Provider Not In Social History Tobacco [...] Cancer Center at [facility] 240 [facility] Building [address] [place] [address] Ronald Mills MD [address] [place] [address] [address] [place] [address] documented as of this encounter Visit Diagnoses Not on filedocumented in this encounter Additional Health Concerns Infection Onset Date Last Indicated Resolved Time COVID-19 03/05/2022 03/05/2022 03/15/2022 7:18 PM EDT Assessment Noted Time PHQ-9 Depression Total Score: 2 11/07/19 19 2:06 PM EDT documented as of this encounter Care Teams Shift Manager Relationship Specialty Start Date End Date Caitlyn Bowie MD [address] [address] PCP - General Internal Medicine 05/06/21 documented as of this encounter
--- OUTSIDE RECORDS SUMMARY | 2024-11-21 11:32 | XMS_ITS | Encounter Summary ---
Author Organization [facility] Address [address] [place] [address] Care Team Providers Care Delivery Table Feeder Name Role Phone Caitlyn Bowie MD Primary Care Provider +1- [phone] Encounter Details Date Type Department Care Team (Late st Contact Info) Description 02/28/2021 Scanned Document INTERFACE DEFAULT [address] [place] [address] System, Provider Not In Social History Tobacco [...] – [facility] 240 [facility] Building [address] [place] [address] Ronald Mills MD [address] [place] [address] [address] [place] [address] documented as of this encounter [...] documented as of this encounter Care Teams Delivery Table Feeder Relationship Specialty Start Date End Date Caitlyn Bowie MD [address] [address] PCP - General Internal Medicine 05/06/21 documented as of this encounter
--- OUTSIDE RECORDS SUMMARY | 2024-11-21 11:32 | XMS_ITS | Clinical Summary ---
Author Organization [facility] Address [address] [place] [address] Phone Care Team Providers Care Stone Trimmer Name Role Phone Brennan Burnett Primary Care Provider [phone] Allergies Active Allergy Reactions Criticality Noted Date [...] 20 mg as needed by her previous general passenger agent which she has taken sporadically. I have asked her to take this daily to see if this improves her symptoms and she has a follow-up appointment with Dr. Shah on September 16 which she will keep. We also had a long conversation regarding the fact that she is seeing 3 different general passenger agent for the same problems. We informed her [...] continues to see Dr. Avalos or her general passenger agent at [facility]. She verbalized understanding of this and [...] right lower leg 03/06/2019 Antiphospholipid antibody syndrome ([facility] V24) 12/24/2018 Adrenal insufficiency ([facility] V24) 08/23/2018 Allergic rhinitis 08/23/2018 Hyperparathyroidism ([facility] V24) 08/23/2018 MRSA infection 08/23/2018 Overview (05/16/2024): 06/2009, s/p thoracotomy infection Osteoarthritis 08/23/2018 Radiation-induced pulmonary fibrosis ([facility] V2 4) 11/13/2017 Bronchiectasis ([facility] V24, [facility] V28) 2017 Leg edema 08/08/2017 Restrictive lung disease 08/08/2017 Chronic obstructive pulmonar y disease ([facility] V24, [facility] V28) 04/13/2017 Fibromyalgia 04/13/2017 Congestive heart failure ([facility] V24, [facility] V 28) 04/04/2017 Heterozygous factor V Leiden mutation ([facility] V 24) 04/04/2017 Obstructive sleep apnea syndrome 04/04/2017 Overview (05/16/2024): CPAP Pleural effusion 04/04/2017 Pulmonary hypertension ([facility] V24, [facility] V28 ) 04/04/2017 Multiple pulmonary nodules 03/17/2017 [...] 11/04/2024 Telephone Gastroenterology - [address] [facility] [address] [place] [address] Tim Gomes MD Provider Call Back 10/10/2024 1:00 PM EDT Office Visit [facility] [address] [facility] [address] [place] [address] Ayanna Jaffe MD 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); Gait abnormality; Memory change; Anxiety; Blurry vision 10/09/2024 12:45 PM EDT Treatment [facility] Speech Therapy [address] [facility] [address] [place] [address] Daphne Alarcon, [employer] CONSULTANT 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); Cognitive communication disorder; Unsp symptoms and signs w cognitive functions and awareness 08/26/2024 10:30 AM EST Telemedicine [facility] [address] [facility] [address] [place] [address] Ayanna Jaffe MD Anxiety (Primary Dx); Memory change; Gait abnormality; White matter lesion of central nervous system from Last 3 Months Immunizations Name Administration [...] PROCEDURE: HISTORICAL TONSILLECTOMY OTHER SURGICAL HISTORY PROCEDURE: [place] RMVL LUNG XCP TOT PNEUMONECTOMY SLEEVE LOBECTOMY; [...] pathology report UPPER GASTROINTESTINAL ENDOSCOPY 05/03/2015 PROCEDURE: [place] UPPER GI ENDOSCOPY PERFORMED MITRAL CLIP PROCEDURE Medical History Medical History Date Comments Akathisia 04/15/2013 DX:Akathisia Anxiety 12/07/2016 DX:Anxiety Bronchiectasis ([facility] V24, CMS/HCC V28) 08/08/2017 DX:Bronchiectasis (HCC) Cataract 08/26/2014 DX:Cataract Chronic obstructive pulmonar y disease (CMS/HCC V24, CMS/HCC V28) 04/13/2017 DX:Chronic obstructive pulm onary disease (HCC) 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 DX:Complica cole migraine Congestive heart failure (CM S/HCC V24, CMS/HCC V28) 04/04/2017 DX:Congestive heart failure (HCC) History of deep vein thrombosis 04/04/2017 DX:History of deep vein thrombosis Diverticulitis of sigmoid colon 12/15/2016 DX:Diverticulitis of sigmoid colon Elevated liver enzymes 09/23/2015 DX:Elevat ed liver enzymes Fibromyalgia 04/13/2017 DX:Fibromyalgia Gastroesophageal reflux disease 11/17/2016 DX:Gastroesophageal reflux disease Glaucoma suspect 08/26/2014 DX:Glaucoma dori pect Heterozygous factor V Leiden mutation ([facility] V24) 04/04/2017 DX:Heterozygous factor V Lei den mutation ([facility]) History of pulmonary embolism 05/15/2017 DX :History of pulmonary embolism Hyperlipidemia 12/07/2016 DX:Hyperlipidemi a Hypothyroidism 12/07/2016 DX:Hypothyroidis m Insomnia 10/18/2016 DX:Insomnia Leg edema 08/08/2017 DX:Leg edema Multiple pulmonary nodules 03/17/2017 DX:Mu ltiple pulmonary nodules Optic neuropathy 08/26/2014 DX:Optic neurop athy Peripheral neuropathic pain 12/07/2016 DX:P eripheral neuropathic pain Pleural effusion 04/04/2017 DX:Pleural effu yaritza Postconcussion syndrome 02/18/2013 DX:Postc oncussion syndrome Pulmonary hypertension ([facility] V24, [facility] V28) 04/04/2017 DX:Pulmonary hypertension (H CC) Restrictive lung disease 08/08/2017 DX:Rest rictive lung disease 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 DX:Zinc deficien cy Obstructive sleep apnea syndrome 04/04/2017 DX:Obstructive sleep apnea syndrome; COMMENT: CPAP Radiation-induced pulmonary fibrosis ([facility] V24) 11/13/2017 DX:Radiation-induced pulmona ry fibrosis (HCC) Adrenal insufficiency ([facility] V24) 08/23/2018 DX:Adrenal insufficiency (HCC) Hyperparathyroidism ([facility] V24) 08/23/2018 DX:Hyperparathyroidism (HCC) Osteoporosis 11/17/2016 DX:Osteoporosis [...] Mx LLL resection, Chemo, RT, Cisplatin, Vinorelbine [id number] Antiphospholipid antibody sy ndrome ([facility] V24) 12/24/2018 DX:Antiphospholipid antibody syndrome (HCC) 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 Hyperparathyroidism ([facility] V24) DX:Hyperparathyroidism (HCC) Adrenal insufficiency ([facility] V24) DX:Adrenal insufficiency (HCC) Family History Medical [...] Description 12/10/2024 1:30 PM EDT Office Visit [facility] [address] [place] [address] Shirley Chaidez PA [address] [place] [address] 12/23/2024 9:00 AM EDT Office Visit [facility] [place] [address] [place] [address] Jerry Li MD [address] [place] [address] Health Maintenance Due Date Last Done Comments [...] mmol/L LAB CHEMISTRY METHOD 06/15/2024 2:10 PM [facility] Potassium 4.7 3.5 - 5.5 mmol/L LAB CHEMISTRY METHOD 06/15/2024 2:10 PM [facility] Chloride 102 96 - 110 mmol/L LAB CHEMISTRY METHOD 06/15/2024 2:10 PM [facility] CO2 34(H) 21 - 32 mmol/L LAB CHEMISTRY METHOD 06/15/2024 2:10 PM [facility] Anion Gap 4 3 - 11 LAB CHEMISTRY METHOD 06/15/2024 2:10 PM [facility] Glucose 95 70 - 100 mg/dL LAB CHEMISTRY METHOD 06/15/2024 2:10 PM [facility] BUN 29(H) 5 - 25 mg/dL LAB CHEMISTRY METHOD 06/15/2024 2:10 PM [facility] Creatinine 0.95 0.50 - 1.10 mg/dL LAB CHEMISTRY METHOD 06/15/2024 2:10 PM [facility] eGFR 60 >=60 mL/min/1. 73m2 LAB CHEMISTRY METHOD 06/15/2024 2:10 PM [facility] Comment:Calculation based on the??Chronic Kidney Disease Epidemiology Collaboration (CKD-EPI) equation refit??without adjustment for race. BUN/Creatinine Ratio 30.5 LAB CHEMISTRY METHOD 06/15/2024 2:10 PM [facility] Calcium 10.1 8.5 - 10.5 mg/dL LAB CHEMISTRY METHOD 06/15/2024 2:10 PM [facility] AST (SGOT) 35 10 - 42 unit/L LAB CHEMISTRY METHOD 06/15/2024 2:10 PM [facility] ALT (SGPT) 39 10 - 60 unit/L LAB CHEMISTRY METHOD 06/15/2024 2:10 PM [facility] Alkaline Phosphatase 83 42 - 121 unit/L LAB CHEMISTRY METHOD 06/15/2024 2:10 PM [facility] Total Protein 6.4 6.0 - 8.0 g/dL LAB CHEMISTRY METHOD 06/15/2024 2:10 PM [facility] Albumin 3.3 3.2 - 5.0 g/dL LAB CHEMISTRY METHOD 06/15/2024 2:10 PM [facility] Total Bilirubin 0.4 0.0 - 1.4 mg/dL LAB CHEMISTRY METHOD 06/15/2024 2:10 PM [facility] Blood Venous blood specimen / Unknown Venipuncture / Unknown 06/15/2024 1:26 PM EST 06/15/2024 1:32 PM EST Jovana Cruz MD LAB BLOOD ORDERABLES Final Resul t [facility] [address] [place] [address], from Last 3 Months or Most Recently Relevant to Health Maintenance Insurance MEDICARE [facility] Advance Directives Documents on File Type Date Recorded Patient Elevator Constructor Supervisor Expl anation Health Care Decision (hx) 10/18/2013 [...] (hx) 10/04/2013 AD LACEY DIRECTIVE Care Teams Stone Trimmer Relationship Specialty Start Date End Date Brennan Burnett MD [address] [place] [address] PCP - General 05/06/24
--- OUTSIDE RECORDS SUMMARY | 2024-11-21 11:32 | XMS_ITS | Encounter Summary ---
Author Organization [facility] and [facility] Address [address] [place] [address] Care Team Providers Care Weigher Operator Name Role Phone Caitlyn Bowie MD Primary Care Provider [phone]- [phone] Encounter Details Date Type Department Care Team (Late st Contact Info) Description 03/01/2021 Scanned Document INTERFACE DEFAULT [address] [place] [phone] System, Provider Not In Social History Tobacco [...] [facility] [place] [address] [place] [address] Ronald Mills MD [address] [place] [address] [address] [place] [address] documented as of this encounter Visit Diagnoses Not on filedocumented in this encounter Additional Health Concerns Infection Onset Date Last Indicated Resolved Time COVID-19 03/05/2022 03/05/2022 03/15/2022 7:18 PM EDT Assessment Noted Time PHQ-9 Depression Total Score: 2 11/07/19 19 2:06 PM EDT documented as of this encounter Care Teams Weigher Operator Relationship Specialty Start Date End Date Caitlyn Bowie MD [address] [address] PCP - General Internal Medicine 05/06/21 documented as of this encounter
--- OUTSIDE RECORDS SUMMARY | 2024-11-21 11:32 | XMS_ITS | Encounter Summary ---
Author Organization [facility] and [facility] Address [address] [place] [address] Care Team Providers Care Tobacco Flavorer Name Role Phone Caitlyn Bowie MD Primary Care Provider +1- [phone] Encounter Details Date Type Department Care Team (Late st Contact Info) Description 03/14/2021 Scanned Document INTERFACE DEFAULT [address] [place] [id number] System, Provider Not In Social History Tobacco [...] [facility] [address] [facility] [address] [place], [place] [id number] Ronald Mills MD [address] [place] [address] [address] [place] [address] documented as of this encounter [...] as of this encounter Care Teams Tobacco Flavorer Relationship Specialty Start Date End Date Caitlyn Bowie MD [address] [address] PCP - General Internal Medicine 05/06/21 documented as of this encounter
--- OUTSIDE RECORDS SUMMARY | 2024-11-21 11:32 | XMS_ITS | Encounter Summary ---
Author Organization [facility] and [facility] Address [address] [place] [address] Care Team Providers Care Field Advisor Name Role Phone Caitlyn Bowie MD Primary Care Provider [phone]- [phone] Encounter Details Date Type Department Care Team (Late st Contact Info) Description 04/13/2021 Scanned Document INTERFACE DEFAULT [address] [place] [address] System, Provider Not In Social History Tobacco [...] [facility] [address] [facility] [address] [place], [place] [id number] Ronald Mills MD [address] [place] [address] [address] [place] [address] documented as of this encounter [...] as of this encounter Care Teams Field Advisor Relationship Specialty Start Date End Date Caitlyn Bowie MD [address] [address] PCP - General Internal Medicine 05/06/21 documented as of this encounter
--- OUTSIDE RECORDS SUMMARY | 2024-11-21 11:32 | XMS_ITS | Encounter Summary ---
Author Organization [facility] and [facility] Address [address] [place] [address] Care Team Providers Care It Operations Analyst Name Role Phone Caitlyn Bowie MD Primary Care Provider [phone]- [phone] Encounter Details Date Type Department Care Team (Late st Contact Info) Description 03/08/2021 Scanned Document INTERFACE DEFAULT [address] [place] [phone] System, Provider Not In Social History Tobacco [...] [facility] [address] [facility] [address] [place], [place] [id number] Ronald Mills MD [address] [place] [address] [address] [place] [address] documented as of this encounter [...] as of this encounter Care Teams It Operations Analyst Relationship Specialty Start Date End Date Caitlyn Bowie MD [facility] [address] [address] PCP - General Internal Medicine 05/06/21 documented as of this encounter
--- OUTSIDE RECORDS SUMMARY | 2024-11-21 11:32 | XMS_ITS | Encounter Summary ---
Author Organization [facility] and [facility] Address [address] [place] [address] Care Team Providers Care Golf Club Head Inspector Name Role Phone Caitlyn Bowie MD Primary Care Provider +1- [phone] Encounter Details Date Type Department Care Team (Late st Contact Info) Description 02/24/2021 Scanned Document INTERFACE DEFAULT [address] [place] [address] System, Provider Not In Social History Tobacco [...] [facility] [address] [facility] [address] [place] [address] Ronald Mills MD [address] [place] [address] [address] [place] [address] documented as of this encounter [...] of this encounter Care Teams Golf Club Head Inspector Relationship Specialty Start Date End Date Caitlyn Bowie MD [address] [address] PCP - General Internal Medicine 05/06/21 documented as of this encounter
--- OUTSIDE RECORDS SUMMARY | 2024-11-21 11:32 | XMS_ITS | Clinical Summary ---
Author Organization [address] Address [address] [place] [address] Phone Care Team Providers Care Market Development Executive Name Role Phone Caitlyn Bowie MD Primary Care Provider +1- [phone] Allergies Active Allergy Reactions Criticality Noted Date [...] Exposed to tobacco smoke by family members [facility] indoors Bronchiectasis COPD (chronic obstructive pulmonary disease) Mildly restrictive lung disease Resolved Problems Problem Noted Date Diagnosed Date Resolved Date KANDY (obstructive sleep apnea) 11/21/2016 01/22/2018 Carotid stenosis, asymptomatic, right 09/18/2015 06/10/2016 Encounters Date Type Department Care Team Description 10/31/2024 1:00 PM EDT Office Visit Hematology Program at [address] [address] Ronald Mills MD Hypokalemia (Primary Dx); VTE (venous thromboembolism); Antiphospholipid antibody syndrome (HC Code); Elevated homocysteine; Abnormal gamma globulin level; Pulmonary hypertension (HC Code) 10/31/2024 Telephone Hematology Program at [address] [address] Ronald Mills MD Appointment 10/25/2024 Orders Only Cancer Center at [address] [place] [address] Taya Nuno RN Hypokalemia (Primary Dx) 10/25/2024 Telephone Hematology Program at [address] [address] Ronald Mills MD Other; Triage 10/23/2024 Scanned Document INTERFACE DEFAULT [address] [place] [address] System, Provider Not In 10/23/2024 Telephone Hematology Program at [address] [address] Marcus Valera MD Triage 10/23/2024 Orders Only Hematology Program at [address] [place] [address] Ronald Mills MD VTE (venous thromboembolism) (Primary Dx); Antiphospholipid antibody syndrome (HC Code); Elevated homocysteine; Abnormal gamma globulin level; Feeding difficulties, unspecified 10/23/2024 Telephone Cancer Center at [address] [place] [address] Ronald Mills MD Labs Only 10/22/2024 Telephone Hematology Program at [address] [address] Ronald Mills MD Other 10/18/2024 10:30 AM EDT Office Visit [facility] [address] [place] [phone] Alfredo Michaud Jr. PA KANDY (obstructive sleep apnea) (Primary Dx); Fatigue, unspecified type; Excessive daytime sleepiness; MCI (mild cognitive impairment) with memory loss 09/30/2024 Orders Only [facility] [address] [place] [phone] Adalgisa Whitney MD KANDY (obstructive sleep apnea) 09/30/2024 Orders Only [facility] [address] [place] [phone] Adalgisa Whitney MD KANDY (obstructive sleep apnea) (Primary Dx) 09/24/2024 Telephone Hematology Program at [address] [address] Ronald Mills MD Triage; Results 09/23/2024 Scanned Document INTERFACE DEFAULT 20 [place] [address] System, Provider Not In 09/15/2024 Scanned Document INTERFACE DEFAULT 20 [place] [address] System, Provider Not In 09/09/2024 Scanned Document INTERFACE DEFAULT 20 [place] [address] System, Provider Not In 08/30/2024 Abstract [facility] [address] [place] [address] Adalgisa Whitney MD from Last 3 Months [...] 4:00 PM EDT Telemedicine Cancer Center at [facility] [address] [place], [place] [address] Ronald Mills MD [address] [place] [address] Health [...] Additional history exists Cervical cancer screening Discontinued Colon cancer screening, Colonoscopy Discontinued Meningococcal Vaccine Aged Out No chavez [...] [facility] DEPART[facility] LABORATORY MEDICINE [facility] Potassium 4.7 3.3 - 5.3 mmol/L 04/05/2022 1:43 PM EDT [facility] DEPARTMENT OF LABORATORY MEDICINE [facility] Chloride 100 98 - 107 mmol/L 04/05/2022 1:43 PM EDT [facility] DEPARTMENT OF LABORATORY MEDICINE [facility] CO2 30 20 - 30 mmol/L 04/05/2022 1:43 PM EDT [facility] DEPARTMENT OF LABORATORY MEDICINE [facility] Anion Gap 8 7 - 17 04/05/2022 1:43 PM EDT [facility] DEPARTMENT OF LABORATORY MEDICINE [facility] Glucose 115(H) 70 - 100 mg/dL 04/05/2022 1:43 PM EDT [facility] DEPARTMENT OF LABORATORY MEDICINE [facility] BUN 16 8 - 23 mg/dL 04/05/2022 1:43 PM EDT [facility] Creatinine 0.89 0.40 - 1.30 mg/dL 04/05/2022 1:43 PM EDT [facility] Calcium 10.5(H) 8.8 - 10.2 mg/dL 04/05/2022 1:43 PM EDT [facility] DEPARTMENT OF LABORATORY MEDICINE [facility] BUN/Creatinine Ratio 18.0 8.0 - 23.0 03/11 1:43 PM EDT [facility] Total Protein 7.0 6.6 - 8.7 g/dL 04/05/2022 1:43 PM EDT [facility] DE[facility]ATORY [facility] Albumin 4.2 3.6 - 4.9 g/dL 04/05/2022 1:43 PM EDT [facility] DEPARTMENT OF LABORATORY MEDICINE [facility] Total Bilirubin 0.6 <=1.2 mg/dL 04/05/2022 1:43 PM EDT [facility] DEPARTMENT OF LABORATORY MEDICINE [facility] Alkaline Phosphatase 58 9 - 122 U/L 04/05/2022 1:43 PM T [facility] DEPART[facility] LABORATORY [facility] Alanine Aminotransferase (ALT) 19 10 - 35 U/L 04/05/2022 1:43 PM EDT [facility] DEPARTMENT OF LABORATORY MEDICINE [facility] Comment:Calcium dobesilate c an cause artificially low ALT results at therapeutic concentrations Aspartate Aminotransferase (AST) 26 10 - 35 U/L 04/05/2022 1:43 PM EDT [facility] DEPARTMENT OF LABORATORY MEDICINE [facility] Globulin 2.8 2.3 - 3.5 g/dL 04/05/2022 1:43 PM EDT [facility] DEPART[facility] LABORATORY [facility] A/G Ratio 1.5 1.0 - 2.2 04/05/2022 1:43 PM EDT [facility] DEPARTMENT OF LABORATORY MEDICINE [facility] AST/ALT Ratio 1.4 See Comment 04/05/2022 1:43 PM EDT [facility] DEPARTMENT OF LABORATORY MEDICINE [facility] Comment: Adult with mild elevations of transaminases (< 5 times upper limit of normal): AST/ALT > 2 suggests alcoholic liver injury AST/ALT < 1 suggests non-alcoholic fatty liver disease (NAFLD) [place] (healthy): AST/ALT can be > 3 on [...] HOSPITAL DEPARTMENT OF LABORATORY MEDICINE [facility] Comment:Estimated glomerular filtration rate (eGFR) [...] HOSPITAL DEPARTMENT OF LABORATORY MEDICINE [facility] [address] [place] [address] * Bone Density Result Scan (05/10/2017) us Historical Provider IMG SCAN REPORTS Final Resul t * (ABNORMAL) Lipid panel (03/18/2016 2:55 PM EDT) Cholesterol 229(H) 115 - 199 mg/dL 03/18/2016 8:11 PM EDT [facility] HDL 83 >=40 mg/dL 03/18/2016 8:11 PM EDT [facility] Triglycerides 71 30 - 150 mg/dL 03/18/2016 8:11 PM EDT [facility] Chol/HDL Ratio 2.8 <=5 03/18/2016 8:11 PM EDT [facility] Comment:Cholesterol/HDL rati o cannot be calculated. LDL Calculated 132 See Comment mg/dL 03/18/2016 8:11 PM EDT [facility] Comment: <100: Optimal 100-129: Near optimal/above optimal 130-159: Borderline high risk 160-189: High risk ??>=190: Very high risk Blood specimen (specimen) Venipuncture / Unknown 03/18/2016 2:55 PM EDT 03/18/2016 3:17 PM EDT Narrative [facility] - 03/18/2016 8:11 PM EDT $18.27 us Sangeeta Garces MD LAB BLOOD ORDERABLES Fin al Result Performing Organization Address [facility]/State/[facility] Co de Phone Number [facility] [address] [place] [address] * MAMMOGRAPHY REPORT (04/25/2013 6:47 AM EDT) 04/25/2013 6:47 AM EDT us Provider Not In System IMG SCAN REPORTS Final Re sult from Last 3 Months or Most Recently Relevant to Health Maintenance Insurance MEDICARE [facility] MEDICARE [facility]IC[facility] MEDICARE MEDICARE BCBS Advance Directives * Full ACLS (Latest Code Status on File) Date Activated Date Inactivated Comments 12/15/2018 7:13 PM 12/16/2018 6:09 PM * Full Interventions Date Activated Date Inactivated Comments 03/18/2016 6:34 PM 03/19/2016 6:40 PM Care Teams Market Development Executive Relationship Specialty Start Date End Date Caitlyn Bowie MD [address] [address] PCP - General Internal Medicine 05/06/21
--- OUTSIDE RECORDS SUMMARY | 2024-11-21 11:32 | XMS_ITS | Encounter Summary ---
Author Organization [facility] and [facility] Address [address] [place] [address] Care Team Providers Care Resident Caregiver Name Role Phone Caitlyn Bowie MD Primary Care Provider +1- [phone] Encounter Details Date Type Department Care Team (Late st Contact Info) Description 08/09/2017 Scanned Document Cardiovascular Medicine at [address] [place] [address] System, Provider Not In Social History Tobacco [...] [facility] 240 [facility] [address] [place] [address] Ronald Mills MD 240 [facility] [address] [place] [address] documented as of this encounter [...] as of this encounter Care Teams Resident Caregiver Relationship Specialty Start Date End Date Caitlyn Bowie MD 3400 [facility] [address] [place] [address] PCP - General Internal Medicine 05/06/21 Henry Kelly MD Pulmonary Department 175 [facility], [address] [place] [address] Physician Pulmonary Disease 09/06/17 06/22/20 documented as of this encounter
--- OUTSIDE RECORDS SUMMARY | 2024-11-21 11:32 | XMS_ITS | Encounter Summary ---
Author Organization [facility] and [facility] Address [address] [place] [address] Care Team Providers Care Copy Coordinator Name Role Phone Caitlyn Bowie MD Primary Care Provider +1- [phone] Encounter Details Date Type Department Care Team (Late st Contact Info) Description 06/07/2017 Scanned Document [facility] Health Information Management [address] [place] [address] External, Provider Social History Tobacco Use Types [...] [facility] at [facility] 240 [facility] [address] [place], [place] [phone] Ronald Mills MD [address] [place] [address] [address] [place] [address] documented as of this encounter [...] as of this encounter Care Teams Copy Coordinator Relationship Specialty Start Date End Date Caitlyn Bowie MD 3400 [facility] 1 [place] [address] PCP - General Internal Medicine 05/06/21 Henry Kelly MD Pulmonary Department 175 [facility], [address] [place] [address] Physician Pulmonary Disease 09/06/17 06/22/20 documented as of this encounter
--- OUTSIDE RECORDS SUMMARY | 2024-11-21 11:32 | XMS_ITS | Encounter Summary ---
Author Organization [facility] and [facility] Address [address] [place] [address] Care Team Providers Care Sled Maker Name Role Phone Caitlyn Bowie MD Primary Care Provider +1- [phone] Encounter Details Date Type Department Care Team (Late st Contact Info) Description 04/26/2017 Scanned Document Cardiovascular Medicine at [address] [place] [address] System, Provider Not In Social History Tobacco [...] [facility] at [facility] 240 [facility] [address] [place], [place] [phone] Ronald Mills MD 240 [facility] A[address] [place] [address] documented as of this encounter [...] documented as of this encounter Care Teams Sled Maker Relationship Specialty Start Date End Date Caitlyn Bowie MD 3400 [facility] [address] [place] [address] PCP - General Internal Medicine 05/06/21 Henry Kelly MD Pulmonary Department 175 [facility], [address] [place] [address] Physician Pulmonary Disease 09/06/17 06/22/20 documented as of this encounter
--- OUTSIDE RECORDS SUMMARY | 2024-11-21 11:32 | XMS_ITS | Encounter Summary ---
Author Organization [facility] and [facility] Address [address] [place] [address] Care Team Providers Care Security Researcher Name Role Phone Caitlyn Bowie MD Primary Care Provider +1- [phone] Encounter Details Date Type Department Care Team (Late st Contact Info) Description 03/11/2021 Scanned Document INTERFACE DEFAULT [address] [place] [address] System, Provider Not In Social History Tobacco [...] [facility] [address] [facility] [address] [place], [place] [address] Ronald Mills MD [address] [place] [address] [address] [place] [address] documented as of this encounter [...] as of this encounter Care Teams Security Researcher Relationship Specialty Start Date End Date Caitlyn Bowie MD [facility] [address] [address] PCP - General Internal Medicine 05/06/21 documented as of this encounter
--- OUTSIDE RECORDS SUMMARY | 2024-11-21 11:32 | XMS_ITS | Encounter Summary ---
Author Organization [facility] Address [address] [place] [address] Care Team Providers Care Skilled Helper Name Role Phone Caitlyn Bowie MD Primary Care Provider +1- [phone] Encounter Details Date Type Department Care Team (Late st Contact Info) Description 03/22/2021 Scanned Document INTERFACE DEFAULT [address] [place] [address] System, Provider Not In Social History Tobacco [...] [facility] [address] [place] [address] Ronald Mills MD [address] [place] [address] [address] [place] [address] documented as of this encounter Visit Diagnoses Not on filedocumented in this encounter Additional Health Concerns Infection Onset Date Last Indicated Resolved Time COVID-19 03/05/2022 03/05/2022 03/15/2022 7:18 PM EDT Assessment Noted Time PHQ-9 Depression Total Score: 2 11/07/19 19 2:06 PM EDT documented as of this encounter Care Teams Skilled Helper Relationship Specialty Start Date End Date Caitlyn Bowie MD [address] [address] PCP - General Internal Medicine 05/06/21 documented as of this encounter
--- OUTSIDE RECORDS SUMMARY | 2024-11-21 11:32 | XMS_ITS | Encounter Summary ---
Author Organization [facility] and [facility] Address [address] [place] [address] Care Team Providers Care Rehabilitation Services Counselor Name Role Phone Caitlyn Bowie MD Primary Care Provider +1- [phone] Encounter Details Date Type Department Care Team (Late st Contact Info) Description 02/21/2017 Scanned Document [facility] Health Information Management [address] [place] [address] External, Provider Social History Tobacco Use Types [...] [facility] 240 [facility] [address] [place], [place] [phone] Ronald Mills MD 240 [facility] [address] [place] [address] documented as of this encounter [...] as of this encounter Care Teams Rehabilitation Services Counselor Relationship Specialty Start Date End Date Caitlyn Bowie MD 3400 [facility] [address] [place] [address] PCP - General Internal Medicine 05/06/21 Henry Kelly MD Pulmonary Department 175 [facility], [address] [place] [address] Physician Pulmonary Disease 09/06/17 06/22/20 documented as of this encounter
--- OUTSIDE RECORDS SUMMARY | 2024-11-21 11:32 | XMS_ITS | Encounter Summary ---
Author Organization [facility] Address [address] [place] [address] Care Team Providers Care Commercial Energy Auditor Name Role Phone Caitlyn Bowie MD Primary Care Provider +1- [phone] Encounter Details Date Type Department Care Team (Late st Contact Info) Description 04/11/2021 Scanned Document [facility] Health Information Management [address] [place] [address] External, Provider Social History Tobacco Use Types [...] Center at [facility] 240 [facility] Building [address] [place], [place] [address] Ronald Mills MD [address] [place] [address] [address] [place] [address] documented as of this encounter Visit Diagnoses Not on filedocumented in this encounter Additional Health Concerns Infection Onset Date Last Indicated Resolved Time COVID-19 03/05/2022 03/05/2022 03/15/2022 7:18 PM EDT Assessment Noted Time PHQ-9 Depression Total Score: 2 11/07/19 19 2:06 PM EDT documented as of this encounter Care Teams Commercial Energy Auditor Relationship Specialty Start Date End Date Caitlyn Bowie MD [address] [address] PCP - General Internal Medicine 05/06/21 documented as of this encounter
--- OUTSIDE RECORDS SUMMARY | 2024-11-21 11:32 | XMS_ITS | Encounter Summary ---
Author Organization [facility] and [facility] Address [address] [place] [address] Care Team Providers Care Search Engine Optimizer Name Role Phone Caitlyn Bowie MD Primary Care Provider +1- [phone] Encounter Details Date Type Department Care Team (Late st Contact Info) Description 03/23/2021 Scanned Document INTERFACE DEFAULT [address] [place] [address] System, Provider Not In Social History Tobacco [...] [facility] Building [address] [place] [address] Ronald Mills MD [address] [place] [address] [address] [place] [address] documented as of this encounter [...] as of this encounter Care Teams Search Engine Optimizer Relationship Specialty Start Date End Date Caitlyn Bowie MD [address] [address] PCP - General Internal Medicine 05/06/21 documented as of this encounter
--- OUTSIDE RECORDS SUMMARY | 2024-11-21 11:32 | XMS_ITS | Encounter Summary ---
Author Organization [facility] and [facility] Address [address] [place] [address] Care Team Providers Care Power Chisel Operator Name Role Phone Caitlyn Bowie MD Primary Care Provider +1- [phone] Encounter Details Date Type Department Care Team (Late st Contact Info) Description 04/12/2021 Scanned Document INTERFACE DEFAULT [address] [place] [address] System, Provider Not In Social History Tobacco [...] [facility] Center at [facility] 240 [facility] Building [address] [place], [place] [address] Ronald Mills MD [address] [place] [address] [address] [place] [address] documented as of this encounter [...] as of this encounter Care Teams Power Chisel Operator Relationship Specialty Start Date End Date Caitlyn Bowie MD [address] [address] PCP - General Internal Medicine 05/06/21 documented as of this encounter
--- OUTSIDE RECORDS SUMMARY | 2024-11-21 11:32 | XMS_ITS | Encounter Summary ---
Author Organization [facility] and [facility] Address [address] [place] [address] Care Team Providers Care Curtain Stretcher Name Role Phone Caitlyn Bowie MD Primary Care Provider +1- [phone] Encounter Details Date Type Department Care Team (Late st Contact Info) Description 03/15/2021 Scanned Document INTERFACE DEFAULT [address] [place] [address] System, Provider Not In Social History [...] [facility] Building [address] [place], [place] [address] Ronald Mills MD [address] [place] [address] [address] [place] [address] documented as of this [...] as of this encounter Care Teams Curtain Stretcher Relationship Specialty Start Date End Date Caitlyn Bowie MD [facility] [address] [address] PCP - General Internal Medicine 05/06/21 documented as of this encounter
--- OUTSIDE RECORDS SUMMARY | 2024-11-21 11:33 | XMS_ITS | Encounter Summary ---
Author Organization [facility] Address [address] [place] [address] Care Team Providers Care Database Marketing Specialist Name Role Phone Caitlyn Bowie MD Primary Care Provider +1- [phone] Encounter Details Date Type Department Care Team (Late st Contact Info) Description 01/26/2018 Scanned Document [facility] Health Information Management [address] [place] [address] External, Provider Social History Tobacco Use Types [...] at [facility] 240 [facility] Building [address] [place], [place] [address] Ronald Mills MD [address] [place] [address] [address] [place] [address] documented as of this encounter [...] as of this encounter Care Teams Database Marketing Specialist Relationship Specialty Start Date End Date Caitlyn Bowie MD 3400 [facility] 1 [place] [address] PCP - General Internal Medicine 05/06/21 Henry Kelly MD Pulmonary Department 175 [facility], [address] [place] [address] Physician Pulmonary Disease 09/06/17 06/22/20 documented as of this encounter
--- OUTSIDE RECORDS SUMMARY | 2024-11-21 11:33 | XMS_ITS | Encounter Summary ---
Author Organization [facility] and [facility] Address [address] [place] [address] Care Team Providers Care Chemical Machine Tender Name Role Phone Caitlyn Bowie MD Primary Care Provider +1- [phone] Encounter Details Date Type Department Care Team (Late st Contact Info) Description 08/23/2017 Scanned Document [facility] Health Information Management [address] [place] [address] External, Provider Social History Tobacco Use Types [...] at [facility] 240 [facility] Building [address] [place], [place] [address] Ronald Mills MD [address] [place] [address] [address] [place] [address] documented as of [...] Date End Date Caitlyn Bowie MD 3400 [facility] 1 [place] [address] PCP - General Internal Medicine 05/06/21 Henry Kelly MD Pulmonary Department 175 [facility], [address] [place] [address] Physician Pulmonary Disease 09/06/17 06/22/20 documented as of this encounter
--- OUTSIDE RECORDS SUMMARY | 2024-11-21 11:33 | XMS_ITS | Encounter Summary ---
Author Organization [facility] and [facility] Address [address] [place] [address] Care Team Providers Care Zigzag Elastic Attacher Name Role Phone Caitlyn Bowie MD Primary Care Provider +1- [phone] Encounter Details Date Type Department Care Team (Late Contact Info) Description 02/03/2021 Scanned Document [facility] Health Information Management [address] [place] [address] External, Provider Social History Tobacco Use Types [...] [facility] 240 [facility] Building [address] [place], [place] [id number] Ronald Mills MD [address] [place] [address] [address] [place] [address] documented as of this encounter [...] as of this encounter Care Teams Zigzag Elastic Attacher Relationship Specialty Start Date End Date Caitlyn Bowie MD [address] [address] PCP - General Internal Medicine 05/06/21 documented as of this encounter
--- OUTSIDE RECORDS SUMMARY | 2024-11-21 11:33 | XMS_ITS | Encounter Summary ---
Author Organization [facility] and [facility] Address [address] [place] [address] Care Team Providers Care Flight Test Data Acquisition Technician Name Role Phone Caitlyn Bowie MD Primary Care Provider +1- [phone] Encounter Details Date Type Department Care Team ([facility] st Contact Info) Description 08/26/2014 Documentation [facility] [address] [place] [address] Shilpi Ibarra [address] [place] [address] Social History Tobacco Use Types Packs/Day Years [...] from the original note were not included. [facility] Progress Note This is a [...] Center at [facility] 240 [facility] Building [address] [place] [address] Ronald Mills MD 240 [facility] Max [address] [place] [address] documented as of this encounter Visit Diagnoses Not on filedocumented in this encounter Additional Health Concerns Infection Onset Date Last Indicated Resolved Time COVID-19 03/05/2022 03/05/2022 03/15/2022 7:18 PM EDT documented as of this encounter Care Teams Flight Test Data Acquisition Technician Relationship Specialty Start Date End Date Caitlyn Bowie MD 3400 [facility] 1 [place] [address] PCP - General Internal Medicine 05/06/21 Henry Kelly MD Pulmonary Department 175 [facility], [address] [place] [address] Physician Pulmonary Disease 09/06/17 06/22/20 documented as of this encounter
--- OUTSIDE RECORDS SUMMARY | 2024-11-21 11:33 | XMS_ITS | Encounter Summary ---
Author Organization [facility] and [facility] Address [address] [place] [address] Care Team Providers Care Insurance Healthcare Representative Name Role Phone Caitlyn Bowie MD Primary Care Provider +1- [phone] Encounter Details Date Type Department Care Team (Late st Contact Info) Description 02/02/2021 Scanned Document INTERFACE DEFAULT [address] [place] [address] System, Provider Not In Social History Tobacco [...] [facility] Building [address] [place] [address] Ronald Mills MD [address] [place] [address] [address] [place] [address] documented as of this encounter [...] as of this encounter Care Teams Insurance Healthcare Representative Relationship Specialty Start Date End Date Caitlyn Bowie MD [facility] [address] [address] PCP - General Internal Medicine 05/06/21 documented as of this encounter
--- OUTSIDE RECORDS SUMMARY | 2024-11-21 11:33 | XMS_ITS | Encounter Summary ---
Author Organization [facility] and [facility] Address 20 [place] [address] Care Team Providers Care Associate Director Of Nursing Name Role Phone Caitlyn Bowie MD Primary Care Provider +1- [phone] Encounter Details Date Type Department Care Team (Late Contact Info) Description 01/27/2021 Scanned Document [facility] at [address] [address] External, Provider Social History Tobacco Use Types [...] Center at [facility] 240 [facility] Building [address] [place], [place] [address] Ronald Mills MD [address] [place] [address] [address] [place] [address] documented as of this encounter [...] as of this encounter Care Teams Associate Director Of Nursing Relationship Specialty Start Date End Date Caitlyn Bowie MD [address] [address] PCP - General Internal Medicine 05/06/21 documented as of this encounter
--- OUTSIDE RECORDS SUMMARY | 2024-11-21 11:33 | XMS_ITS | Encounter Summary ---
Author Organization [facility] and [facility] Address [address] [place] [address] Care Team Providers Care Phys Assistant Name Role Phone Caitlyn Bowie MD Primary Care Provider +1- [phone] Encounter Details Date Type Department Care Team (Late st Contact Info) Description 05/01/2015 Scanned Document [facility] Health Information Management [address] [place] [address] External, Provider Social History Tobacco Use Types [...] [facility] Building [address] [place], [place] [address] Ronald Mills MD 240 [facility] [address] [place] [address] documented as of this encounter [...] documented as of this encounter Care Teams Phys Assistant Relationship Specialty Start Date End Date Caitlyn Bowie MD 3400 [facility] Max 1 [place] [address] PCP - General Internal Medicine 05/06/21 Henry Kelly MD Pulmonary Department 175 [facility], [address] [place] [address] Physician Pulmonary Disease 09/06/17 06/22/20 documented as of this encounter
--- OUTSIDE RECORDS SUMMARY | 2024-11-21 11:33 | XMS_ITS | Encounter Summary ---
Author Organization [facility] and [facility] Address [address] [place] [address] Care Team Providers Care Gaming Commissioner Name Role Phone Caitlyn Bowie MD Primary Care Provider +1- [phone] Encounter Details Date Type Department Care Team (Late st Contact Info) Description 10/16/2013 Scanned Document [facility] [address] [place] [address], 2nd floor [facility], [address] [place], [place] [address] Suzy Kong MD [address] [place] [address] Social History Tobacco Use Types Packs/Day [...] PM EDT Telemedicine Cancer [facility] at [address] [place] [address] Ronald Mills MD 240 [facility] A1 [place] [address] documented as of this encounter Visit Diagnoses Not on filedocumented in this encounter Additional Health Concerns Infection Onset Date Last Indicated Resolved Time COVID-19 03/05/2022 03/05/2022 03/15/2022 7:18 PM EDT documented as of this encounter Care Teams Gaming Commissioner Relationship Specialty Start Date End Date Caitlyn Bowie MD 3400 [facility] Max 1 [place] [address] PCP - General Internal Medicine 05/06/21 Henry Kelly MD Pulmonary Department 175 [facility], [address] [place] [address] Physician Pulmonary Disease 09/06/17 06/22/20 documented as of this encounter
--- OUTSIDE RECORDS SUMMARY | 2024-11-21 11:33 | XMS_ITS | Encounter Summary ---
Author Organization [facility] and [facility] Address [address] [place] [address] Care Team Providers Care Manager Presentation Name Role Phone Caitlyn Bowie MD Primary Care Provider +1- [phone] Encounter Details Date Type Department Care Team (Late st Contact Info) Description 09/01/2017 Scanned Document [facility] Health Information Management [address] [place] [address] External, Provider Social History Tobacco Use Types [...] [facility] Center at [facility] 240 [facility] Building [address] [place], [place] [address] Ronald Mills MD [address] [place] [address] [address] [place] [address] documented as of this encounter [...] End Date Caitlyn Bowie MD [facility] 1 [place] [address] PCP - General Internal Medicine 05/06/21 Henry Kelly MD Pulmonary Department 175 [facility], [address] [place] [address] Physician Pulmonary Disease 09/06/17 06/22/20 documented as of this encounter
--- OUTSIDE RECORDS SUMMARY | 2024-11-21 11:33 | XMS_ITS | Encounter Summary ---
Author Organization [facility] and [facility] Address [address] [place] [address] Care Team Providers Care Internet Application Developer Name Role Phone Caitlyn Bowie MD Primary Care Provider +1- [phone] Encounter Details Date Type Department Care Team (Late st Contact Info) Description 02/01/2018 Scanned Document [facility] Health Information Management [address] [place] [address] External, Provider Social History Tobacco Use [...] [facility] [address] [facility] Building [address] [place], [place] [address] Ronald Mills MD [address] [place] [address] [address] [place] [address] documented as of this [...] as of this encounter Care Teams Internet Application Developer Relationship Specialty Start Date End Date Caitlyn Bowie MD 3400 [facility] 1 [place] [address] PCP - General Internal Medicine 05/06/21 Henry Kelly MD Pulmonary Department 175 [facility], [address] [place] [address] Physician Pulmonary Disease 09/06/17 06/22/20 documented as of this encounter
--- OUTSIDE RECORDS SUMMARY | 2024-11-21 11:33 | XMS_ITS | Encounter Summary ---
Author Organization [facility] and [facility] Address [address] [place] [address] Care Team Providers Care Enterprise Integration Architect Name Role Phone Caitlyn Bowie MD Primary Care Provider +1- [phone] Encounter Details Date Type Department Care Team (Late st Contact Info) Description 12/21/2020 Scanned Document INTERFACE DEFAULT [address] [place] [address] System, Provider Not In Social History Tobacco [...] at [facility] 240 [facility] Building [address] [place] [address] Ronald Mills MD [address] [place] [address] [address] [place] [address] documented as of this encounter Visit Diagnoses Not on filedocumented in this encounter Additional Health Concerns Infection Onset Date Last Indicated Resolved Time COVID-19 03/05/2022 03/05/2022 03/15/2022 7:18 PM EDT Assessment Noted Time PHQ-9 Depression Total Score: 2 11/07/19 19 2:06 PM EDT documented as of this encounter Care Teams Enterprise Integration Architect Relationship Specialty Start Date End Date Caitlyn Bowie MD [address] [address] PCP - General Internal Medicine 05/06/21 documented as of this encounter
--- OUTSIDE RECORDS SUMMARY | 2024-11-21 11:33 | XMS_ITS | Encounter Summary ---
Author Organization [facility] and [facility] Address [address] [place] [address] Care Team Providers Care Linoleum Tile Layer Name Role Phone Caitlyn Bowie MD Primary Care Provider +1- [phone] Encounter Details Date Type Department Care Team (Late st Contact Info) Description 11/09/2014 Scanned Document [facility] Health Information Management [address] [place] [address] External, Provider Social History Tobacco Use Types [...] Center at [facility] 240 [facility] Building [address] [place], [place] [address] Ronald Mills MD 240 [facility] A1 [place] [address] documented as of this encounter Visit Diagnoses Not on filedocumented in this encounter Additional Health Concerns Infection Onset Date Last Indicated Resolved Time COVID-19 03/05/2022 03/05/2022 03/15/2022 7:18 PM EDT documented as of this encounter Care Teams Linoleum Tile Layer Relationship Specialty Start Date End Date Caitlyn Bowie MD 3400 [facility] 1 [place] [address] PCP - General Internal Medicine 05/06/21 Henry Kelly MD Pulmonary Department 175 [facility], [address] [place] [address] Physician Pulmonary Disease 09/06/17 06/22/20 documented as of this encounter
--- OUTSIDE RECORDS SUMMARY | 2024-11-21 11:33 | XMS_ITS | Encounter Summary ---
Author Organization [facility] and [facility] Address [address] [place] [address] Care Team Providers Care Ship Superintendent Name Role Phone Caitlyn Bowie MD Primary Care Provider +1- [phone] Encounter Details Date Type Department Care Team (Late st Contact Info) Description 01/28/2018 Scanned Document [facility] Health Information Management [address] [place] [address] External, Provider Social History Tobacco Use Types [...] [facility] 240 [facility] Building [address] [place], [place] [phone] Ronald Mills MD [address] [place] [address] [address]1 [place] [address] documented as of this encounter [...] as of this encounter Care Teams Ship Superintendent Relationship Specialty Start Date End Date Caitlyn Bowie MD [facility] 1 [place] [address] PCP - General Internal Medicine 05/06/21 Henry Kelly MD Pulmonary Department 175 [facility], [address] [place] [address] Physician Pulmonary Disease 09/06/17 06/22/20 documented as of this encounter
--- OUTSIDE RECORDS SUMMARY | 2024-11-21 11:33 | XMS_ITS | Encounter Summary ---
Author Organization [facility] and [facility] Address [address] [place] [address] Care Team Providers Care Qualitative Field Coordinator Name Role Phone Caitlyn Bowie MD Primary Care Provider +1- [phone] Encounter Details Date Type Department Care Team (Late st Contact Info) Description 01/27/2018 Scanned Document [facility] Health Information Management [address] [place] [address] External, Provider Social History Tobacco Use Types [...] [facility] 240 [facility] Building [address] [place] [address] Ronald Mills MD 240 [facility] A1 [place] [address] documented as of this encounter [...] documented as of this encounter Care Teams Qualitative Field Coordinator Relationship Specialty Start Date End Date Caitlyn Bowie MD 3400 [facility] 1 [place] [address] PCP - General Internal Medicine 05/06/21 Henry Kelly MD Pulmonary Department 175 [facility], [address] [place] [address] Physician Pulmonary Disease 09/06/17 06/22/20 documented as of this encounter
--- OUTSIDE RECORDS SUMMARY | 2024-11-21 11:33 | XMS_ITS | Encounter Summary ---
Author Organization [facility] and [facility] Address [address] [place] [address] Care Team Providers Care Commercial Sales Director Name Role Phone Caitlyn Bowie MD Primary Care Provider +1- [phone] Encounter Details Date Type Department Care Team (Late st Contact Info) Description 01/07/2014 Documentation [facility] [address] [place] [address] Shilpi Ibarra [address] [place] [address] Social History Tobacco Use Types Packs/Day Years [...] the original note were not included. [facility] Progress Note This is a [...] at [facility] 240 [facility] Building [address] [place], [place] [address] Ronald Mills MD [address] [place] [address] documented as of this encounter Visit Diagnoses Not on filedocumented in this encounter Additional Health Concerns Infection Onset Date Last Indicated Resolved Time COVID-19 03/05/2022 03/05/2022 03/15/2022 7:18 PM EDT documented as of this encounter Care Teams Commercial Sales Director Relationship Specialty Start Date End Date Caitlyn Bowie MD [address] [place] [address] PCP - General Internal Medicine 05/06/21 Henry Kelly MD Pulmonary Department 175 [facility], [address] [place] [address] Physician Pulmonary Disease 09/06/17 06/22/20 documented as of this encounter
--- OUTSIDE RECORDS SUMMARY | 2024-11-21 11:33 | XMS_ITS | Encounter Summary ---
Author Organization [facility] and [facility] Address 20 [place] [address] Care Team Providers Care Shirt Ironer Supervisor Name Role Phone Caitlyn Bowie MD Primary Care Provider +1- [phone] Encounter Details Date Type Department Care Team (Late st Contact Info) Description 01/13/2021 Scanned Document Cancer Center at [address] [address] External, Provider Social History Tobacco Use Types [...] [facility] 240 [facility] Building [address] [place], [place] [address] Ronald Mills MD [address] [place] [address] [address]1 [place] [address] documented as of [...] documented as of this encounter Care Teams Shirt Ironer Supervisor Relationship Specialty Start Date End Date Caitlyn Bowie MD [address] [address] PCP - General Internal Medicine 05/06/21 documented as of this encounter
--- OUTSIDE RECORDS SUMMARY | 2024-11-21 11:33 | XMS_ITS | Encounter Summary ---
Author Organization [facility] and [facility] Address [address] [place] [address] Care Team Providers Care Survey Manager Name Role Phone Caitlyn Bowie MD Primary Care Provider +1- [phone] Encounter Details Date Type Department Care Team (Late st Contact Info) Description 02/15/2021 Scanned Document INTERFACE DEFAULT [address] [place] [address] System, Provider Not In Social History Tobacco [...] [facility] at [facility] 240 [facility] Building [address] [place] [address] Ronald Mills MD [address] [place] [address] [address] [place] [address] documented as of this encounter Visit Diagnoses Not on filedocumented in this encounter Additional Health Concerns Infection Onset Date Last Indicated Resolved Time COVID-19 03/05/2022 03/05/2022 03/15/2022 7:18 PM EDT Assessment Noted Time PHQ-9 Depression Total Score: 2 11/07/19 19 2:06 PM EDT documented as of this encounter Care Teams Survey Manager Relationship Specialty Start Date End Date Caitlyn Bowie MD [address] [address] PCP - General Internal Medicine 05/06/21 documented as of this encounter
--- OUTSIDE RECORDS SUMMARY | 2024-11-21 11:33 | XMS_ITS | Encounter Summary ---
Author Organization [facility] and [facility] Address [address] [place] [address] Care Team Providers Care Tunnel Elastic Operator Chainstitch Name Role Phone Caitlyn Bowie MD Primary Care Provider +1- [phone] Encounter Details Date Type Department Care Team (Late st Contact Info) Description 02/11/2021 Scanned Document INTERFACE DEFAULT [address] [place] [address] System, Provider Not In Social History Tobacco [...] [facility] at [facility] 240 [facility] Building [address] [place] [address] Ronald Mills MD [address] [place] [address] [address] [place] [address] documented as of this encounter [...] documented as of this encounter Care Teams Tunnel Elastic Operator Chainstitch Relationship Specialty Start Date End Date Caitlyn Bowie MD [address] [address] PCP - General Internal Medicine 05/06/21 documented as of this encounter
--- OUTSIDE RECORDS SUMMARY | 2024-11-21 11:33 | XMS_ITS | Encounter Summary ---
Author Organization [facility] and [facility] Address [address] [place] [address] Care Team Providers Care Dump Grounds Checker Name Role Phone Caitlyn Bowie MD Primary Care Provider +1- [phone] Encounter Details Date Type Department Care Team (Late st Contact Info) Description 02/07/2021 Scanned Document INTERFACE DEFAULT [address] [place] [address] System, Provider Not In Social History Tobacco [...] [facility] 240 [facility] Building [address] [place], [place] [address] Ronald Mills MD [address] [place] [address] [address] [place] [address] documented as of this encounter [...] documented as of this encounter Care Teams Dump Grounds Checker Relationship Specialty Start Date End Date Caitlyn Bowie MD [address] [address] PCP - General Internal Medicine 05/06/21 documented as of this encounter
--- OUTSIDE RECORDS SUMMARY | 2024-11-21 11:33 | XMS_ITS | Encounter Summary ---
Author Organization [facility] and [facility] Address [address] [place] [address] Care Team Providers Care Clinical Team Manager Name Role Phone Caitlyn Bowie MD Primary Care Provider +1- [phone] Encounter Details Date Type Department Care Team (Late st Contact Info) Description 11/07/2014 Scanned Document [facility] Health Information Management [address] [place] [address] External, Provider Social History Tobacco Use Types [...] [facility] 240 [facility] Building [address] [place], [place] [address] Ronald Mills MD 240 [facility] A1 [place] [address] documented as of this encounter Visit Diagnoses Not on filedocumented in this encounter Additional Health Concerns Infection Onset Date Last Indicated Resolved Time COVID-19 03/05/2022 03/05/2022 03/15/2022 7:18 PM EDT documented as of this encounter Care Teams Clinical Team Manager Relationship Specialty Start Date End Date Caitlyn Bowie MD 3400 [facility] 1 [place] [address] PCP - General Internal Medicine 05/06/21 Henry Kelly MD Pulmonary Department 175 [facility], [address] [place] [address] Physician Pulmonary Disease 09/06/17 06/22/20 documented as of this encounter
--- OUTSIDE RECORDS SUMMARY | 2024-11-21 11:33 | XMS_ITS | Encounter Summary ---
Author Organization [facility] and [facility] Address [address] [place] [address] Care Team Providers Care Grab Jack Man Name Role Phone Caitlyn Bowie MD Primary Care Provider +1- [phone] Encounter Details Date Type Department Care Team (Late st Contact Info) Description 01/30/2018 Scanned Document [facility] Health Information Management [address] [place] [address] External, Provider Social History Tobacco Use Types [...] [facility] 240 [facility] Building [address] [place] [address] Ronald Mills MD [address] [place] [address] [address]1 [place] [address] documented as of this encounter [...] documented as of this encounter Care Teams Grab Jack Man Relationship Specialty Start Date End Date Caitlyn Bowie MD [facility] 1 [place] [address] PCP - General Internal Medicine 05/06/21 Henry Kelly MD Pulmonary Department 175 [facility], [address] [place] [address] Physician Pulmonary Disease 09/06/17 06/22/20 documented as of this encounter
--- OUTSIDE RECORDS SUMMARY | 2024-11-21 11:33 | XMS_ITS | Encounter Summary ---
Author Organization [facility] and [facility] Address [address] [place] [address] Care Team Providers Care Sales Team Leader Name Role Phone Caitlyn Bowie MD Primary Care Provider +1- [phone] Encounter Details Date Type Department Care Team (Late st Contact Info) Description 06/25/2015 Scanned Document [facility] Health Information Management [address] [place] [address] External, Provider Social History Tobacco Use Types [...] [facility] 240 [facility] Building [address] [place], [place] [address] Ronald Mills MD 240 [facility] A1 [place] [address] documented as of this encounter Visit Diagnoses Not on filedocumented in this encounter Additional Health Concerns Infection Onset Date Last Indicated Resolved Time COVID-19 03/05/2022 03/05/2022 03/15/2022 7:18 PM EDT documented as of this encounter Care Teams Sales Team Leader Relationship Specialty Start Date End Date Caitlyn Bowie MD 3400 [facility] 1 [place] [address] PCP - General Internal Medicine 05/06/21 Henry Kelly MD Pulmonary Department 175 [facility], [address] [place] [address] Physician Pulmonary Disease 09/06/17 06/22/20 documented as of this encounter
--- OUTSIDE RECORDS SUMMARY | 2024-11-21 11:33 | XMS_ITS | Encounter Summary ---
Author Organization [facility] and [facility] Address [address] [place] [address] Care Team Providers Care Landscaper Name Role Phone Caitlyn Bowie MD Primary Care Provider +1- [phone] Encounter Details Date Type Department Care Team (Late st Contact Info) Description 11/29/2017 Scanned Document [facility] Health Information Management [address] [place] [address] External, Provider Social History Tobacco Use Types [...] at [facility] 240 [facility] Building [address] [place], [place] [phone] Ronald Mills MD [address] [place] [address] [address] [place] [address] documented as of this encounter [...] as of this encounter Care Teams Landscaper Relationship Specialty Start Date End Date Caitlyn Bowie MD 3400 [facility] 1 [place] [address] PCP - General Internal Medicine 05/06/21 Henry Kelly MD Pulmonary Department 175 [facility], [address] [place] [address] Physician Pulmonary Disease 09/06/17 06/22/20 documented as of this encounter
--- OUTSIDE RECORDS SUMMARY | 2024-11-21 11:33 | XMS_ITS | Encounter Summary ---
Author Organization [facility] and [facility] Address [address] [place] [address] Care Team Providers Care Ciaio Counter Molder Name Role Phone Caitlyn Bowie MD Primary Care Provider +1- [phone] Encounter Details Date Type Department Care Team (Late st Contact Info) Description 02/08/2021 Scanned Document INTERFACE DEFAULT [address] [place] [address] System, Provider Not In Social History Tobacco [...] at [facility] 240 [facility] Building [address] [place] [address] Ronald Mills MD [address] [place] [address] [address]1 [place] [address] documented as of this encounter Visit Diagnoses Not on filedocumented in this encounter Additional Health Concerns Infection Onset Date Last Indicated Resolved Time COVID-19 03/05/2022 03/05/2022 03/15/2022 7:18 PM EDT Assessment Noted Time PHQ-9 Depression Total Score: 2 11/07/19 19 2:06 PM EDT documented as of this encounter Care Teams Ciaio Counter Molder Relationship Specialty Start Date End Date Caitlyn Bowie MD [address] [address] PCP - General Internal Medicine 05/06/21 documented as of this encounter
--- OUTSIDE RECORDS SUMMARY | 2024-11-21 11:33 | XMS_ITS | Encounter Summary ---
Author Organization [facility] Address [address] [place] [address] Care Team Providers Care Coat Feller Name Role Phone Caitlyn Bowie MD Primary Care Provider +1- [phone] Encounter Details Date Type Department Care Team (Late st Contact Info) Description 01/13/2021 Scanned Document [facility] at [address] [address] Ronald Mills MD [address] [address] Social History Tobacco Use Types [...] PM EDT Telemedicine Cancer Center at [address] [place] [address] Ronald Mills MD [address] [address] documented as of this encounter [...] as of this encounter Care Teams Coat Feller Relationship Specialty Start Date End Date Caitlyn Bowie MD [address] [address] PCP - General Internal Medicine 05/06/21 documented as of this encounter
--- OUTSIDE RECORDS SUMMARY | 2024-11-21 11:33 | XMS_ITS | Encounter Summary ---
Author Organization [facility] and [facility] Address [address] [place] [address] Care Team Providers Care Health Sanitarian Name Role Phone Caitlyn Bowie MD Primary Care Provider +1- [phone] Encounter Details Date Type Department Care Team (Late st Contact Info) Description 02/02/2018 Scanned Document [facility] Health Information Management [address] [place] [address] External, Provider Social History Tobacco Use Types [...] Center at [facility] 240 [facility] Building [address] [place], [place] [phone] Ronald Mills MD [address] [place] [address] [address]1 [place] [address] documented as of this encounter [...] as of this encounter Care Teams Health Sanitarian Relationship Specialty Start Date End Date Caitlyn Bowie MD 3400 [facility] 1 [place] [address] PCP - General Internal Medicine 05/06/21 Henry Kelly MD Pulmonary Department 175 [facility], [address] [place] [address] Physician Pulmonary Disease 09/06/17 06/22/20 documented as of this encounter
--- OUTSIDE RECORDS SUMMARY | 2024-11-21 11:33 | XMS_ITS | Encounter Summary ---
Author Organization [facility] and [facility] Address [address] [place] [address] Care Team Providers Care Assembly Machine Tender Name Role Phone Caitlyn Bowie MD Primary Care Provider +1- [phone] Encounter Details Date Type Department Care Team (Late Contact Info) Description 02/02/2021 Scanned Document [facility] Information Management [address] [place] [address] External, Provider Social History Tobacco Use Types [...] Center at [facility] 240 [facility] Building [address] [place], [place] [id number] Ronald Mills MD [address] [place] [address] [address] [place] [address] documented as of this encounter Visit Diagnoses Not on filedocumented in this encounter Additional Health Concerns Infection Onset Date Last Indicated Resolved Time COVID-19 03/05/2022 03/05/2022 03/15/2022 7:18 PM EDT Assessment Noted Time PHQ-9 Depression Total Score: 2 11/07/19 19 2:06 PM EDT documented as of this encounter Care Teams Assembly Machine Tender Relationship Specialty Start Date End Date Caitlyn Bowie MD [address] [address] PCP - General Internal Medicine 05/06/21 documented as of this encounter
--- OUTSIDE RECORDS SUMMARY | 2024-11-21 11:33 | XMS_ITS | Encounter Summary ---
Author Organization [facility] and [facility] Address [address] [place] [address] Care Team Providers Care Supervisor Telephone Clerks Name Role Phone Caitlyn Bowie MD Primary Care Provider +1- [phone] Encounter Details Date Type Department Care Team (Late st Contact Info) Description 09/18/2020 Scanned Document INTERFACE DEFAULT [address] [place] [address] System, Provider Not In Social History Tobacco [...] [facility] 240 [facility] Building [address] [place] [address] Ronald Mills MD [address] [place] [address] [address] [place] [address] documented as of this encounter Visit Diagnoses Not on filedocumented in this encounter Additional Health Concerns Infection Onset Date Last Indicated Resolved Time COVID-19 03/05/2022 03/05/2022 03/15/2022 7:18 PM EDT Assessment Noted Time PHQ-9 Depression Total Score: 2 11/07/19 19 2:06 PM EDT documented as of this encounter Care Teams Supervisor Telephone Clerks Relationship Specialty Start Date End Date Caitlyn Bowie MD [address] [address] PCP - General Internal Medicine 05/06/21 documented as of this encounter
--- OUTSIDE RECORDS SUMMARY | 2024-11-21 11:33 | XMS_ITS | Encounter Summary ---
Author Organization [facility] and [facility] Address [address] [place] [address] Care Team Providers Care Hostel Manager Name Role Phone Caitlyn Bowie MD Primary Care Provider +1- [phone] Encounter Details Date Type Department Care Team (Late st Contact Info) Description 04/28/2015 Scanned Document [facility] Health Information Management [address] [place] [address] External, Provider Social History Tobacco Use Types [...] Center at [facility] 240 [facility] Building [address] [place], [place] [phone] Ronald Mills MD 240 [facility] A1 [place] [address] documented as of this encounter Visit Diagnoses Not on filedocumented in this encounter Additional Health Concerns Infection Onset Date Last Indicated Resolved Time COVID-19 03/05/2022 03/05/2022 03/15/2022 7:18 PM EDT documented as of this encounter Care Teams Hostel Manager Relationship Specialty Start Date End Date Caitlyn Bowie MD 3400 [facility] 1 [place] [address] PCP - General Internal Medicine 05/06/21 Henry Kelly MD Pulmonary Department 175 [facility], [address] [place] [address] Physician Pulmonary Disease 09/06/17 06/22/20 documented as of this encounter
--- OUTSIDE RECORDS SUMMARY | 2024-11-21 11:33 | XMS_ITS | Encounter Summary ---
Author Organization [facility] and [facility] Address [address] [place] [address] Care Team Providers Care General Road Supervisor Name Role Phone Caitlyn Bowie MD Primary Care Provider +1- [phone] Encounter Details Date Type Department Care Team (Late st Contact Info) Description 02/03/2021 Scanned Document INTERFACE DEFAULT [address] [place] [address] System, Provider Not In Social History Tobacco [...] at [facility] 240 [facility] Building [address] [place], [place] [phone] Ronald Mills MD [address] [place] [address] [address] [place] [address] documented as of this encounter [...] as of this encounter Care Teams General Road Supervisor Relationship Specialty Start Date End Date Caitlyn Bowie MD [address] [address] PCP - General Internal Medicine 05/06/21 documented as of this encounter
--- OUTSIDE RECORDS SUMMARY | 2024-11-21 11:33 | XMS_ITS | Encounter Summary ---
Author Organization [facility] and [facility] Address 20 [place] [address] Care Team Providers Care Health Program Director Name Role Phone Caitlyn Bowie MD Primary Care Provider +1- [phone] Encounter Details Date Type Department Care Team (Late st Contact Info) Description 10/07/2013 Scanned Document [facility] On[facility] Program at [address] [address] Suzy Kong MD [address] [place] [address] Social History Tobacco Use Types Packs/Day [...] at [facility] 240 [facility] Building [address] [place], [place] [phone] Ronald Mills MD 240 [facility] A1 [place] [address] documented as of this encounter Visit Diagnoses Not on filedocumented in this encounter Additional Health Concerns Infection Onset Date Last Indicated Resolved Time COVID-19 03/05/2022 03/05/2022 03/15/2022 7:18 PM EDT documented as of this encounter Care Teams Health Program Director Relationship Specialty Start Date End Date Caitlyn Bowie MD 3400 [facility] Max 1 [place] [address] PCP - General Internal Medicine 05/06/21 Henry Kelly MD Pulmonary Department 175 [facility], [address] [place] [address] Physician Pulmonary Disease 09/06/17 06/22/20 documented as of this encounter
--- OUTSIDE RECORDS SUMMARY | 2024-11-21 11:33 | XMS_ITS | Encounter Summary ---
Author Organization [facility] and [facility] Address [address] [place] [address] Care Team Providers Care Photographic Double Name Role Phone Caitlyn Bowie MD Primary Care Provider +1- [phone] Encounter Details Date Type Department Care Team (Late st Contact Info) Description 01/26/2018 Scanned Document [facility] Health Information Management [address] [place] [address] External, Provider Social History Tobacco Use Types [...] [facility] 240 [facility] Building [address] [place], [place] [phone] Ronald Mills MD 240 [facility] A1 [place] [address] documented as of this encounter Visit Diagnoses Not on filedocumented in this encounter Additional Health Concerns Infection Onset Date Last Indicated Resolved Time COVID-19 03/05/2022 03/05/2022 03/15/2022 7:18 PM EDT documented as of this encounter Care Teams Photographic Double Relationship Specialty Start Date End Date Caitlyn Bowie MD 3400 [facility] 1 [place] [address] PCP - General Internal Medicine 05/06/21 Henry Kelly MD Pulmonary Department 175 [facility], [address] [place] [address] Physician Pulmonary Disease 09/06/17 06/22/20 documented as of this encounter
--- OUTSIDE RECORDS SUMMARY | 2024-11-21 11:33 | XMS_ITS | Encounter Summary ---
Author Organization [facility] and [facility] Address [address] [place] [address] Care Team Providers Care Glueline Worker Name Role Phone Caitlyn Bowie MD Primary Care Provider +1- [phone] Encounter Details Date Type Department Care Team (Late st Contact Info) Description 07/31/2015 Scanned Document [facility] Health Information Management [address] [place] [address] External, Provider Social History Tobacco Use Types [...] Cancer Center at [facility] 240 [facility] Building [address] [place], [place] [phone] Ronald Mills MD 240 [facility] Max [address]1 [place] [address] documented as of this encounter Procedures Procedure Name Priority Date/Time Associated Diagnosis Comments NUC MED/PET RESULT SCAN Routine 07/31/2015 documented in this encounter Results * Nuc Med/PET Result Scan (07/31/2015) us Provider External IMG SCAN REPORTS Edited Result - Final [facility] [place], [place], [facility] documented in this encounter Visit Diagnoses Not on filedocumented in this encounter Additional Health Concerns Infection Onset Date Last Indicated Resolved Time COVID-19 03/05/2022 03/05/2022 03/15/2022 7:18 PM EDT documented as of this encounter Care Teams Glueline Worker Relationship Specialty Start Date End Date Caitlyn Bowie MD 3400 [facility] Max 1 [place] [address] PCP - General Internal Medicine 05/06/21 Henry Kelly MD Pulmonary Department 175 [facility], [address] [place] [address] Physician Pulmonary Disease 09/06/17 06/22/20 documented as of this encounter
--- OUTSIDE RECORDS SUMMARY | 2024-11-21 11:33 | XMS_ITS | Encounter Summary ---
Author Organization [facility] and [facility] Address [address] [place] [address] Care Team Providers Care Fabrication Lead Name Role Phone Caitlyn Bowie MD Primary Care Provider +1- [phone] Encounter Details Date Type Department Care Team (Late st Contact Info) Description 04/28/2015 Scanned Document [facility] Health Information Management [address] [place] [phone] External, Provider Social History Tobacco Use Types [...] Cancer Center at [facility] 240 [facility] Building [address] [place], [place] [phone] Ronald Mills MD 240 [facility] Max [address] [place] [address] documented as of this encounter Procedures Procedure Name Priority Date/Time Associated Diagnosis Comments LAB SCAN Routine 04/28/2015 documented in this encounter Results * Lab Scan (04/28/2015) Blood specimen (specimen) us Provider External LAB BLOOD ORDERABLES Edited Re sult - Final [facility] documented in this encounter Visit Diagnoses Not on filedocumented in this encounter Additional Health Concerns Infection Onset Date Last Indicated Resolved Time COVID-19 03/05/2022 03/05/2022 03/15/2022 7:18 PM EDT documented as of this encounter Care Teams Fabrication Lead Relationship Specialty Start Date End Date Caitlyn Bowie MD 3400 [facility] 1 [place] [address] PCP - General Internal Medicine 05/06/21 Henry Kelly MD Pulmonary Department 175 [facility], [address] [place] [address] Physician Pulmonary Disease 09/06/17 06/22/20 documented as of this encounter
--- OUTSIDE RECORDS SUMMARY | 2024-11-21 11:33 | XMS_ITS | Encounter Summary ---
Author Organization [facility] and [facility] Address [address] [place] [address] Care Team Providers Care Appliance Adjuster Name Role Phone Caitlyn Bowie MD Primary Care Provider +1- [phone] Encounter Details Date Type Department Care Team (Late st Contact Info) Description 02/02/2018 Scanned Document [facility] Health Information Management [address] [place] [address] External, Provider Social History Tobacco Use Types [...] at [facility] 240 [facility] Building [address] [place], [place] [phone] Ronald Mills MD 240 [facility] A1 [place] [address] documented as of this encounter Visit Diagnoses Not on filedocumented in this encounter Additional Health Concerns Infection Onset Date Last Indicated Resolved Time COVID-19 03/05/2022 03/05/2022 03/15/2022 7:18 PM EDT documented as of this encounter Care Teams Appliance Adjuster Relationship Specialty Start Date End Date Caitlyn Bowie MD 3400 [facility] 1 [place] [address] PCP - General Internal Medicine 05/06/21 Henry Kelly MD Pulmonary Department 175 [facility], [address] [place] [address] Physician Pulmonary Disease 09/06/17 06/22/20 documented as of this encounter
--- OUTSIDE RECORDS SUMMARY | 2024-11-21 11:33 | XMS_ITS | Encounter Summary ---
Author Organization [facility] and [facility] Address [address] [place] [address] Care Team Providers Care Graphic Technician Name Role Phone Caitlyn Bowie MD Primary Care Provider +1- [phone] Reason for Visit * Reason Comments Other Encounter Details Date Type Department Care Team (Late st Contact Info) Description 01/12/2021 Telephone [facility] at [address] - [address] [phone] Ronald Mills MD [address] [place] [address] Other Social History Tobacco Use Types [...] AM EDT Lab orders were faxed to [facility] @ [phone]. Patient notified by phone. * Telephone Encounter - Kathleen Nasima - 01/12/2021 8:46 AM EDT Pt called looking to speak with Kirstin RE: lab orders sent to lab [facility] lab Looking to have labs sent there A.S.A.P at some point today She is scheduled with Dr. Mills on January 28 documented in this encounter Plan of Treatment Upcoming Encounters Date Type Department Care Team (Late st Contact Info) Description 04/25/2025 4:00 PM EDT Telemedicine Cancer Center at [facility] 240 [facility] Building [address] [place], [place] [phone] Ronald Mills MD 240 [facility] Max [address]1 [place] [address] documented as of this encounter Visit Diagnoses Not on filedocumented in this encounter Additional Health Concerns Infection Onset Date Last Indicated Resolved Time COVID-19 03/05/2022 03/05/2022 03/15/2022 7:18 PM EDT Assessment Noted Time PHQ-9 Depression Total Score: 2 11/07/19 19 2:06 PM EDT documented as of this encounter Care Teams Graphic Technician Relationship Specialty Start Date End Date Caitlyn Bowie MD [address] [address] PCP - General Internal Medicine 05/06/21 documented as of this encounter
--- OUTSIDE RECORDS SUMMARY | 2024-11-21 11:33 | XMS_ITS | Encounter Summary ---
Author Organization [facility] Address [address] [place] [address] Care Team Providers Care Numerical Control Machine Tool Operator Name Role Phone Caitlyn Bowie MD Primary Care Provider +1- [phone] Encounter Details Date Type Department Care Team (Late st Contact Info) Description 05/14/2015 Scanned Document [facility] Health Information Management [address] [place] [address] External, Provider Social History Tobacco Use Types [...] [facility] 240 [facility] Building [address] [place], [place] [phone] Ronald Mills MD 240 [facility] A1 [place] [address] documented as of this encounter Visit Diagnoses Not on filedocumented in this encounter Additional Health Concerns Infection Onset Date Last Indicated Resolved Time COVID-19 03/05/2022 03/05/2022 03/15/2022 7:18 PM EDT documented as of this encounter Care Teams Numerical Control Machine Tool Operator Relationship Specialty Start Date End Date Caitlyn Bowie MD 3400 [facility] 1 [place] [address] PCP - General Internal Medicine 05/06/21 Henry Kelly MD Pulmonary Department 175 [facility], [address] [place] [address] Physician Pulmonary Disease 09/06/17 06/22/20 documented as of this encounter
--- OUTSIDE RECORDS SUMMARY | 2024-11-21 11:33 | XMS_ITS | Encounter Summary ---
Author Organization [facility] and [facility] Address [address] [place] [address] Care Team Providers Care Block Sealer Name Role Phone Caitlyn Bowie MD Primary Care Provider +1- [phone] Encounter Details Date Type Department Care Team (Late st Contact Info) Description 11/09/2020 Scanned Document INTERFACE DEFAULT [address] [place] [address] System, Provider Not In Social History Tobacco [...] Telemedicine Cancer Center at [facility] 240 [facility] Building [address] [place] [address] Ronald Mills MD [address] [place] [address] [address] [place] [address] documented as of this encounter Visit Diagnoses Not on filedocumented in this encounter Additional Health Concerns Infection Onset Date Last Indicated Resolved Time COVID-19 03/05/2022 03/05/2022 03/15/2022 7:18 PM EDT Assessment Noted Time PHQ-9 Depression Total Score: 2 11/07/19 19 2:06 PM EDT documented as of this encounter Care Teams Block Sealer Relationship Specialty Start Date End Date Caitlyn Bowie MD [address] [address] PCP - General Internal Medicine 05/06/21 documented as of this encounter
--- OUTSIDE RECORDS SUMMARY | 2024-11-21 11:34 | XMS_ITS | Encounter Summary ---
Author Organization [facility] and [facility] Address [address] [place] [address] Care Team Providers Care Semiconductor Packages Leak Tester Name Role Phone Caitlyn Bowie MD Primary Care Provider +1- [phone] Encounter Details Date Type Department Care Team (Late Contact Info) Description 10/29/2021 Scanned Document [facility] Health Information Management [address] [place] [address] External, Provider Social History Tobacco Use Types [...] [facility] 240 [facility] Building [address] [place], [place] [phone] Ronald Mills MD [address] [place] [address] [address] [place] [address] documented as of this encounter [...] documented as of this encounter Care Teams Semiconductor Packages Leak Tester Relationship Specialty Start Date End Date Caitlyn Bowie MD [address] [address] PCP - General Internal Medicine 05/06/21 documented as of this encounter
--- OUTSIDE RECORDS SUMMARY | 2024-11-21 11:34 | XMS_ITS | Encounter Summary ---
Author Organization [facility] and [facility] Address [address] [place] [phone] Care Team Providers Care Critical Care Unit Nurse Name Role Phone Caitlyn Bowie MD Primary Care Provider +1- [phone] Encounter Details Date Type Department Care Team (Late st Contact Info) Description 07/30/2018 Scanned Document [facility] Health Information Management [address] [place] [address] External, Provider Social History Tobacco Use Types [...] at [facility] 240 [facility] [address] [place], [place] [phone] Ronald Mills MD [address] [place] [address] [address]1 [place] [address] documented as of this encounter [...] of this encounter Care Teams Critical Care Unit Nurse Relationship Specialty Start Date End Date Caitlyn Bowie MD [facility]0 [facility] 1 [place] [address] PCP - General Internal Medicine 05/06/21 Henry Kelly MD Pulmonary Department 175 [facility], [address] [place] [address] Physician Pulmonary Disease 09/06/17 06/22/20 documented as of this encounter
--- OUTSIDE RECORDS SUMMARY | 2024-11-21 11:34 | XMS_ITS | Encounter Summary ---
Author Organization [facility] Address [address] [place] [address] Care Team Providers Care Inpatient Care Manager Rn Name Role Phone Caitlyn Bowie MD Primary Care Provider +1- [phone] Encounter Details Date Type Department Care Team (Late st Contact Info) Description 07/28/2018 Scanned Document [facility] Health Information Management [address] [place] [address] External, Provider Social History Tobacco Use Types [...] Center at [facility] 240 [facility] Building [address] [place], [place] [phone] Ronald Mills MD 240 [facility] A1 [place] [address] documented as of this encounter [...] documented as of this encounter Care Teams Inpatient Care Manager Rn Relationship Specialty Start Date End Date Caitlyn Bowie MD [facility] 1 [place] [address] PCP - General Internal Medicine 05/06/21 Henry Kelly MD Pulmonary Department 175 [facility], [address] [place] [address] Physician Pulmonary Disease 09/06/17 06/22/20 documented as of this encounter
--- OUTSIDE RECORDS SUMMARY | 2024-11-21 11:34 | XMS_ITS | Encounter Summary ---
Author Organization [facility] and [facility] Address [address] [place] [address] Care Team Providers Care Carbon Coater Machine Operator Name Role Phone Caitlyn Bowie MD Primary Care Provider +1- [phone] Encounter Details Date Type Department Care Team (Late st Contact Info) Description 01/27/2018 Scanned Document [facility] Health Information Management [address] [place] [address] External, Provider Social History Tobacco Use Types [...] [facility] 240 [facility] Building [address] [place], [place] [phone] Ronald Mills MD 240 [facility] A1 [place] [address] documented as of this encounter Visit Diagnoses Not on filedocumented in this encounter Additional Health Concerns Infection Onset Date Last Indicated Resolved Time COVID-19 03/05/2022 03/05/2022 03/15/2022 7:18 PM EDT documented as of this encounter Care Teams Carbon Coater Machine Operator Relationship Specialty Start Date End Date Caitlyn Bowie MD 3400 [facility] 1 [place] [address] PCP - General Internal Medicine 05/06/21 Henry Kelly MD Pulmonary Department 175 [facility], [address] [place] [address] Physician Pulmonary Disease 09/06/17 06/22/20 documented as of this encounter
--- OUTSIDE RECORDS SUMMARY | 2024-11-21 11:34 | XMS_ITS | Encounter Summary ---
Author Organization [facility] and [facility] Address [address] [place] [phone] Care Team Providers Care Motorcycle Builder Name Role Phone Caitlyn Bowie MD Primary Care Provider +1- [phone] Reason for Visit * Reason Comments Triage Encounter Details Date Type Department Care Team (Late st Contact Info) Description 10/18/2021 Telephone [facility] at [address] - [address] [phone] Ronald Mills MD [address] [place] [phone] Triage Social History Tobacco Use Types [...] Center at [facility] 240 [facility] Building [address] [place], [place] [address] Ronald Mills MD 240 [facility] Max [address]1 [place] [phone] documented as of this encounter Visit Diagnoses Not on filedocumented in this encounter Additional Health Concerns Infection Onset Date Last Indicated Resolved Time COVID-19 03/05/2022 03/05/2022 03/15/2022 7:18 PM EDT Assessment Noted Time PHQ-9 Depression Total Score: 2 11/07/19 19 2:06 PM EDT documented as of this encounter Care Teams Motorcycle Builder Relationship Specialty Start Date End Date Caitlyn Bowie MD [address] [address] PCP - General Internal Medicine 05/06/21 documented as of this encounter
--- OUTSIDE RECORDS SUMMARY | 2024-11-21 11:34 | XMS_ITS | Encounter Summary ---
Author Organization [facility] Address 20 [place] [address] Care Team Providers Care Medart Operator Name Role Phone Caitlyn Bowie MD Primary Care Provider +1- [phone] Encounter Details Date Type Department Care Team (Late st Contact Info) Description 11/19/2021 Scanned Document [facility] at [address] 2nd [place] [address] Norma Renee MD [address] [place] [phone] Social History Tobacco Use Types Packs/Day [...] PM EDT Telemedicine Cancer Center at [address] [place] [address] Ronald Mills MD 240 [facility] A1 [place] [address] documented as of this encounter Visit Diagnoses Not on filedocumented in this encounter Additional Health Concerns Infection Onset Date Last Indicated Resolved Time COVID-19 03/05/2022 03/05/2022 03/15/2022 7:18 PM EDT Assessment Noted Time PHQ-9 Depression Total Score: 2 11/07/19 19 2:06 PM EDT documented as of this encounter Care Teams Medart Operator Relationship Specialty Start Date End Date Caitlyn Bowie MD [address] [address] PCP - General Internal Medicine 05/06/21 documented as of this encounter
--- OUTSIDE RECORDS SUMMARY | 2024-11-21 11:34 | XMS_ITS | Encounter Summary ---
Author Organization [facility] and [facility] Address [address] [place] [phone] Care Team Providers Care Rec Therapist Name Role Phone Caitlyn Bowie MD Primary Care Provider +1- [phone] Encounter Details Date Type Department Care Team (Late Contact Info) Description 11/18/2021 Scanned Document [facility] Health Information Management [address] [place] [address] External, Provider Social History Tobacco Use Types [...] [facility] 240 [facility] Building [address] [place], [place] [phone] Ronald Mills MD [address] [place] [address] [address]1 [place] [address] documented as of this encounter Visit Diagnoses Not on filedocumented in this encounter Additional Health Concerns Infection Onset Date Last Indicated Resolved Time COVID-19 03/05/2022 03/05/2022 03/15/2022 7:18 PM EDT Assessment Noted Time PHQ-9 Depression Total Score: 2 11/07/19 19 2:06 PM EDT documented as of this encounter Care Teams Rec Therapist Relationship Specialty Start Date End Date Caitlyn Bowie MD [address] [address] PCP - General Internal Medicine 05/06/21 documented as of this encounter
--- OUTSIDE RECORDS SUMMARY | 2024-11-21 11:34 | XMS_ITS | Encounter Summary ---
Author Organization [facility] and [facility] Address [address] [place] [address] Care Team Providers Care Tnt Line Supervisor Name Role Phone Caitlyn Bowie MD Primary Care Provider +1- [phone] Encounter Details Date Type Department Care Team (Late st Contact Info) Description 10/08/2021 Scanned Document INTERFACE DEFAULT [address] [place] [address] System, Provider Not In Social History Tobacco [...] Center at [facility] 240 [facility] Building [address] [place], [place] [phone] Ronald Mills MD [address] [place] [address] [address] [place] [address] documented as of this encounter [...] documented as of this encounter Care Teams Tnt Line Supervisor Relationship Specialty Start Date End Date Caitlyn Bowie MD [address] [address] PCP - General Internal Medicine 05/06/21 documented as of this encounter
--- OUTSIDE RECORDS SUMMARY | 2024-11-21 11:34 | XMS_ITS | Encounter Summary ---
Author Organization [facility] and [facility] Address [address] [place] [address] Care Team Providers Care Community Engagement Coordinator Name Role Phone Caitlyn Bowie MD Primary Care Provider +1- [phone] Reason for Visit * Reason Comments FYI Encounter Details Date Type Department Care Team (Late st Contact Info) Description 05/24/2021 Telephone [facility] at [facility] at [address] [place] [address] 2nd [place], [place] [phone] Solo Henry MD [address] [place] [phone] FYI Social History Tobacco Use Types [...] [facility] 240 [facility] Building [address] [place] [address] Ronald Mills MD 240 [facility] Max A1 [place] [address] documented as of this encounter [...] [facility] 1 [place] [address] PCP - General Internal Medicine 05/06/21 documented as of this encounter
--- OUTSIDE RECORDS SUMMARY | 2024-11-21 11:34 | XMS_ITS | Encounter Summary ---
Author Organization [facility] Address [address] [place] [address] Care Team Providers Care Hot Stick Man Name Role Phone Caitlyn Bowie MD Primary Care Provider +1- [phone] Encounter Details Date Type Department Care Team (Late st Contact Info) Description 01/26/2018 Scanned Document [facility] Health Information Management [address] [place] [address] External, Provider Social History Tobacco Use Types [...] [facility] 240 [facility] Building [address] [place] [address] Ronald Mills MD [address] [place] [address] [address]1 [place] [address] documented as of this encounter [...] as of this encounter Care Teams Hot Stick Man Relationship Specialty Start Date End Date Caitlyn Bowie MD 3400 [facility] 1 [place] [address] PCP - General Internal Medicine 05/06/21 Henry Kelly MD Pulmonary Department [address] [place] [address], [address] [place] [address] Physician Pulmonary Disease 09/06/17 06/22/20 documented as of this encounter
--- OUTSIDE RECORDS SUMMARY | 2024-11-21 11:34 | XMS_ITS | Encounter Summary ---
Author Organization [facility] and [facility] Address [address] [place] [address] Care Team Providers Care Navy Diver Name Role Phone Caitlyn Bowie MD Primary Care Provider +1- [phone] Encounter Details Date Type Department Care Team (Late st Contact Info) Description 06/08/2021 Scanned Document INTERFACE DEFAULT [address] [place] [address] System, Provider Not In Social History Tobacco [...] [facility] 240 [facility] Building [address] [place], [place] [phone] Ronald Mills MD [address] [place] [address] A1 [place] [address] documented as of this encounter [...] documented as of this encounter Care Teams Navy Diver Relationship Specialty Start Date End Date Caitlyn Bowie MD [address] [place] [address] PCP - General Internal Medicine 05/06/21 documented as of this encounter
--- OUTSIDE RECORDS SUMMARY | 2024-11-21 11:34 | XMS_ITS | Encounter Summary ---
Author Organization [facility] Address [address] [place] [address] Care Team Providers Care Mold Mechanic Name Role Phone Caitlyn Bowie MD Primary Care Provider +1- [phone] Encounter Details Date Type Department Care Team (Late st Contact Info) Description 02/19/2015 Scanned Document [facility] Health Information Management [address] [place] [address] External, Provider Social History Tobacco Use Types [...] at [facility] 240 [facility] Building [address] [place], [place] [phone] Ronald Mills MD 240 [facility] Max [address]1 [place] [address] documented as of this encounter Procedures Procedure Name Priority Date/Time Associated Diagnosis Comments LAB SCAN Routine 02/19/2015 documented in this encounter Results * Lab Scan (02/19/2015) Blood specimen (specimen) us Provider External LAB BLOOD ORDERABLES Final Res ult [facility] documented in this encounter Visit Diagnoses Not on filedocumented in this encounter Additional Health Concerns Infection Onset Date Last Indicated Resolved Time COVID-19 03/05/2022 03/05/2022 03/15/2022 7:18 PM EDT documented as of this encounter Care Teams Mold Mechanic Relationship Specialty Start Date End Date Caitlyn Bowie MD 3400 [facility] 1 [place] [address] PCP - General Internal Medicine 05/06/21 Henry Kelly MD Pulmonary Department 175 [facility], [address] [place] [address] Physician Pulmonary Disease 09/06/17 06/22/20 documented as of this encounter
--- OUTSIDE RECORDS SUMMARY | 2024-11-21 11:34 | XMS_ITS | Encounter Summary ---
Author Organization [facility] and [facility] Address [address] [place] [address] Care Team Providers Care Community Health Planning Director Name Role Phone Caitlyn Boiwe MD Primary Care Provider +1- [phone] Encounter Details Date Type Department Care Team (Late st Contact Info) Description 03/13/2015 Scanned Document [facility] Health Information Management [address] [place] [address] External, Provider Social History Tobacco Use Types [...] at [facility] 240 [facility] Building [address] [place], [place] [phone] Ronald Mills MD 240 [facility] Max [address]1 [place] [address] documented as of this encounter Procedures Procedure Name Priority Date/Time Associated Diagnosis Comments LAB SCAN Routine 02/16/2015 LAB SCAN Routine 02/16/2015 documented in this encounter Results * Lab Scan (02/16/2015) Blood specimen (specimen) us Provider External LAB BLOOD ORDERABLES Final Res ult Performing Organization Address [facility]/ZIP Co de Phone Number [facility] * Lab Scan (02/16/2015) Blood specimen (specimen) Provider External LAB BLOOD ORDERABLES Final Res ult Performing Organization Address [facility] Co de Phone Number [facility] documented in this encounter Visit Diagnoses Not on filedocumented in this encounter Additional Health Concerns Infection Onset Date Last Indicated Resolved Time COVID-19 03/05/2022 03/05/2022 03/15/2022 7:18 PM EDT documented as of this encounter Care Teams Community Health Planning Director Relationship Specialty Start Date End Date Caitlyn Bowie MD 3400 [facility] 1 [place] [address] PCP - General Internal Medicine 05/06/21 Henry Kelly MD Pulmonary Department 175 [facility], [address] [place] [address] Physician Pulmonary Disease 09/06/17 06/22/20 documented as of this encounter
--- OUTSIDE RECORDS SUMMARY | 2024-11-21 11:34 | XMS_ITS | Encounter Summary ---
Author Organization [facility] and [facility] Address [address] [place] [address] Care Team Providers Care Feather Renovator Name Role Phone Caitlyn Bwoie MD Primary Care Provider +1- [phone] Encounter Details Date Type Department Care Team (Late st Contact Info) Description 05/27/2021 Telephone [facility] at [address] [address] Ronald Mills MD [address] [place] [address] Social History Tobacco Use Types Packs/Day [...] [facility] 240 [facility] [address] [place], [place] [address] Ronald Mills MD 240 [facility] Max A1 [place] [address] documented as of this encounter Visit Diagnoses Not on filedocumented in this encounter Additional Health Concerns Infection Onset Date Last Indicated Resolved Time COVID-19 03/05/2022 03/05/2022 03/15/2022 7:18 PM EDT Assessment Noted Time PHQ-9 Depression Total Score: 2 11/07/19 19 2:06 PM EDT documented as of this encounter Care Teams Feather Renovator Relationship Specialty Start Date End Date Caitlyn Bowie MD [address] [address] PCP - General Internal Medicine 05/06/21 documented as of this encounter
--- OUTSIDE RECORDS SUMMARY | 2024-11-21 11:34 | XMS_ITS | Encounter Summary ---
Author Organization [facility] Address [address] [place] [address] Care Team Providers Care Digital Program Manager Name Role Phone Caitlyn Bowie MD Primary Care Provider +1- [phone] Reason for Visit * Reason Comments Advice Only Encounter Details Date Type Department Care Team ([facility] st Contact Info) Description 06/01/2021 Telephone [facility] at [address] [phone] Ronald Mills MD [address] [place] [address] Advice Only Social History Tobacco Use [...] added that she's called before and sent [employer] messages but hasn't received a reply,[phone]. documented in this encounter Plan of Treatment Upcoming Encounters Date Type Department Care Team (Late st Contact Info) Description 04/25/2025 4:00 PM EDT Telemedicine Cancer Center at [facility] 240 [facility] Building [address] [place], [place] [phone] Ronald Mills MD 240 [facility] Max [address] [place] [address] documented as of this encounter Visit Diagnoses Not on filedocumented in this encounter Additional Health Concerns Infection Onset Date Last Indicated Resolved Time COVID-19 03/05/2022 03/05/2022 03/15/2022 7:18 PM EDT Assessment Noted Time PHQ-9 Depression Total Score: 2 11/07/19 19 2:06 PM EDT documented as of this encounter Care Teams Digital Program Manager Relationship Specialty Start Date End Date Caitlyn Bowie MD 3400 [facility] 1 [place] [address] PCP - General Internal Medicine 05/06/21 documented as of this encounter
--- OUTSIDE RECORDS SUMMARY | 2024-11-21 11:34 | XMS_ITS | Encounter Summary ---
Author Organization [facility] Address [address] [place] [phone] Care Team Providers Care Architectural Coating Finisher Name Role Phone Caitlyn Bowie MD Primary Care Provider +1- [phone] Encounter Details Date Type Department Care Team (Late st Contact Info) Description 12/04/2014 Scanned Document [facility] Health Information Management [address] [place] [phone] External, Provider Social History Tobacco Use Types [...] [facility] Center at [facility] 240 [facility] Building [address] [place], [place] [phone] Ronald Mills MD 240 [facility] Max [address] [place] [address] documented as of this encounter Procedures Procedure Name Priority Date/Time Associated Diagnosis Comments LAB SCAN Routine 12/04/2014 documented in this encounter Results * Lab Scan (12/04/2014) Blood specimen (specimen) us Provider External LAB BLOOD ORDERABLES Final Res ult [facility] documented in this encounter Visit Diagnoses Not on filedocumented in this encounter Additional Health Concerns Infection Onset Date Last Indicated Resolved Time COVID-19 03/05/2022 03/05/2022 03/15/2022 7:18 PM EDT documented as of this encounter Care Teams Architectural Coating Finisher Relationship Specialty Start Date End Date Caitlyn Bowie MD 3400 [facility] 1 [place] [address] PCP - General Internal Medicine 05/06/21 Henry Kelly MD Pulmonary Department 175 [facility], [address] [place] [address] Physician Pulmonary Disease 09/06/17 06/22/20 documented as of this encounter
--- OUTSIDE RECORDS SUMMARY | 2024-11-21 11:34 | XMS_ITS | Encounter Summary ---
Author Organization [facility] Address [address] [place] [phone] Care Team Providers Care Raw Stock Machine Loader Name Role Phone Caitlyn Bowie MD Primary Care Provider +1- [phone] Encounter Details Date Type Department Care Team (Late st Contact Info) Description 08/07/2018 Scanned Document [facility] Health Information Management [address] [place] [address] External, Provider Social History Tobacco Use Types [...] [facility] 240 [facility] Building [address] [place], [place] [phone] Ronald Mills MD [address] [place] [address] [address]1 [place] [address] documented as of this encounter Visit Diagnoses Not on filedocumented in this encounter Additional Health Concerns Infection Onset Date Last Indicated Resolved Time COVID-19 03/05/2022 03/05/2022 03/15/2022 7:18 PM EDT documented as of this encounter Care Teams Raw Stock Machine Loader Relationship Specialty Start Date End Date Caitlyn Bowie MD 3400 [facility] 1 [place] [address] PCP - General Internal Medicine 05/06/21 Henry Kelly MD Pulmonary Department 175 [facility], [address] [place] [address] Physician Pulmonary Disease 09/06/17 06/22/20 documented as of this encounter
--- OUTSIDE RECORDS SUMMARY | 2024-11-21 11:34 | XMS_ITS | Encounter Summary ---
Author Organization [facility] Address [address] [place] [phone] Care Team Providers Care Child Care Assistant Name Role Phone Caitlyn Bowie MD Primary Care Provider +1- [phone] Encounter Details Date Type Department Care Team (Late st Contact Info) Description 04/18/2018 Scanned Document [facility] Health Information Management [address] [place] [address] External, Provider Social History Tobacco Use Types [...] – [facility] 240 [facility] Building [address] [place], [place] [phone] Ronald Mills MD [address] [place] [address] [address]1 [place] [address] documented as of this [...] of this encounter Care Teams Child Care Assistant Relationship Specialty Start Date End Date Caitlyn Bowie MD 3400 [facility] 1 [place] [address] PCP - General Internal Medicine 05/06/21 Henry Kelly MD Pulmonary Department 175 [facility], [address] [place] [address] Physician Pulmonary Disease 09/06/17 06/22/20 documented as of this encounter
--- OUTSIDE RECORDS SUMMARY | 2024-11-21 11:34 | XMS_ITS | Encounter Summary ---
Author Organization [facility] and [facility] Address [address] [place] [address] Care Team Providers Care Process Supervisor Name Role Phone Caitlyn Bowie MD Primary Care Provider +1- [phone] Encounter Details Date Type Department Care Team (Late st Contact Info) Description 11/18/2021 Scanned Document INTERFACE DEFAULT [address] [place] [address] System, Provider Not In Social History Tobacco [...] [facility] 240 [facility] [address] [place] [address] Ronald Mills MD [address] [place] [address] [address] [place] [address] documented as of this encounter Visit Diagnoses Not on filedocumented in this encounter Additional Health Concerns Infection Onset Date Last Indicated Resolved Time COVID-19 03/05/2022 03/05/2022 03/15/2022 7:18 PM EDT Assessment Noted Time PHQ-9 Depression Total Score: 2 11/07/19 19 2:06 PM EDT documented as of this encounter Care Teams Process Supervisor Relationship Specialty Start Date End Date Caitlyn Bowie MD [address] [address] PCP - General Internal Medicine 05/06/21 documented as of this encounter
--- OUTSIDE RECORDS SUMMARY | 2024-11-21 11:34 | XMS_ITS | Clinical Summary ---
Author Organization [facility] Address [address] [place] [address] Care Team Providers Care Nut Steamer Name Role Phone Caitlyn Bowie MD Primary Care Provider +1- [phone] Allergies Active Allergy Reactions Criticality Noted Date [...] Breath High 05/09/2008 Bronchospasm or Wheezing Ipratropium [place] Unknown/Patient and Family Unable to Define Medium [...] 1 capsule by mouth daily. Active B Fuyjhob-V-Suitj Acid (STRESS 500 B-COMPLEX PO) Take 1 [...] & B MEDICARE PART A & B [facility] Care Teams Nut Steamer Relationship Specialty Start Date End Date Caitlyn Bowie MD [address]00 [place] [address] PCP - General Internal Medicine 03/20/23
--- OUTSIDE RECORDS SUMMARY | 2024-11-21 11:34 | XMS_ITS | Encounter Summary ---
Author Organization [facility] and [facility] Address [address] [place] [address] Care Team Providers Care Opticianry Teacher Name Role Phone Caitlyn Bowie MD Primary Care Provider +1- [phone] Encounter Details Date Type Department Care Team (Late st Contact Info) Description 03/26/2015 Scanned Document Cardiovascular Medicine at [address] [place] [address] Norma Renee MD [address] [place] [phone] Social History Tobacco Use Types Packs/Day Years [...] PM EDT Telemedicine Cancer Center at [address] [place], [place] [phone] Ronald Mills MD [address] [place] [address] [address] [place] [address] documented as of this encounter Visit Diagnoses Not on filedocumented in this encounter Additional Health Concerns Infection Onset Date Last Indicated Resolved Time COVID-19 03/05/2022 03/05/2022 03/15/2022 7:18 PM EDT documented as of this encounter Care Teams Opticianry Teacher Relationship Specialty Start Date End Date Caitlyn Bowie MD 3400 [facility] 1 [place] [address] PCP - General Internal Medicine 05/06/21 Henry Kelly MD Pulmonary Department 175 [facility], [address] [place] [address] Physician Pulmonary Disease 09/06/17 06/22/20 documented as of this encounter
--- OUTSIDE RECORDS SUMMARY | 2024-11-21 11:34 | XMS_ITS | Encounter Summary ---
Author Organization [facility] and [facility] Address [address] [place] [address] Care Team Providers Care Manager Graphic Name Role Phone Caitlyn Bowie MD Primary Care Provider +1- [phone] Encounter Details Date Type Department Care Team (Late st Contact Info) Description 06/07/2021 Scanned Document Onco-Oncology Program at [address] [place] [address] Norma Renee MD [address] [place] [address] 2 [place] [address] Social History Tobacco Use Types [...] PM EDT Telemedicine [facility] at [address] [place], [place] [phone] Ronald Mills MD 240 [facility] A1 [place] [address] documented as of this encounter Visit Diagnoses Not on filedocumented in this encounter Additional Health Concerns Infection Onset Date Last Indicated Resolved Time COVID-19 03/05/2022 03/05/2022 03/15/2022 7:18 PM EDT Assessment Noted Time PHQ-9 Depression Total Score: 2 11/07/19 19 2:06 PM EDT documented as of this encounter Care Teams Manager Graphic Relationship Specialty Start Date End Date Caitlyn Bowie MD [address] [address] PCP - General Internal Medicine 05/06/21 documented as of this encounter
--- OUTSIDE RECORDS SUMMARY | 2024-11-21 11:34 | XMS_ITS | Encounter Summary ---
Author Organization [facility] and [facility] Address [address] [place] [address] Care Team Providers Care Quality Improvement Analyst Name Role Phone Caitlyn Bowie MD Primary Care Provider +1- [phone] Encounter Details Date Type Department Care Team (Late st Contact Info) Description 10/15/2018 Scanned Document [facility] Health Information Management [address] [place] [address] External, Provider Social History Tobacco Use Types [...] [facility] [address] [facility] Building [address] [place], [place] [phone] Ronald Mills MD [address] [place] [address] [address] [place] [address] documented as of this encounter Visit Diagnoses Not on filedocumented in this encounter Additional Health Concerns Infection Onset Date Last Indicated Resolved Time COVID-19 03/05/2022 03/05/2022 03/15/2022 7:18 PM EDT documented as of this encounter Care Teams Quality Improvement Analyst Relationship Specialty Start Date End Date Caitlyn Bowie MD 3400 [facility] 1 [place] [address] PCP - General Internal Medicine 05/06/21 Henry Kelly MD Pulmonary Department 175 [facility], [address] [place] [address] Physician Pulmonary Disease 09/06/17 06/22/20 documented as of this encounter
--- OUTSIDE RECORDS SUMMARY | 2024-11-21 11:34 | XMS_ITS | Encounter Summary ---
Author Organization [facility] and [facility] Address [address] [place] [address] Care Team Providers Care Nicking Machine Operator Name Role Phone Caitlyn Bowie MD Primary Care Provider +1- [phone] Encounter Details Date Type Department Care Team (Late st Contact Info) Description 06/07/2021 Scanned Document Onco-Oncology Program at [address] [place] [address] Norma Renee MD [address] [place] [address] 2 [place] [address] Social History Tobacco Use Types [...] 4:00 PM EDT Telemedicine Cancer Center at [address] [place], [place] [address] Ronald Mills MD 240 [facility] A1 [place] [address] documented as of this encounter Visit Diagnoses Not on filedocumented in this encounter Additional Health Concerns Infection Onset Date Last Indicated Resolved Time COVID-19 03/05/2022 03/05/2022 03/15/2022 7:18 PM EDT Assessment Noted Time PHQ-9 Depression Total Score: 2 11/07/19 19 2:06 PM EDT documented as of this encounter Care Teams Nicking Machine Operator Relationship Specialty Start Date End Date Caitlyn Bowie MD [address] [address] PCP - General Internal Medicine 05/06/21 documented as of this encounter
--- OUTSIDE RECORDS SUMMARY | 2024-11-21 11:34 | XMS_ITS | Encounter Summary ---
Author Organization [facility] and [facility] Address 20 [place] [address] Care Team Providers Care Milk Drying Machine Operator Name Role Phone Caitlyn Bowie MD Primary Care Provider +1- [phone] Encounter Details Date Type Department Care Team (Late st Contact Info) Description 06/07/2021 Scanned Document Cancer Center at [address] [address] External, Provider Social History Tobacco Use Types [...] [facility] 240 [facility] Building [address] [place], [place] [phone] Ronald Mills MD [address] [place] [address] [address] [place] [address] documented as of this encounter Visit Diagnoses Not on filedocumented in this encounter Additional Health Concerns Infection Onset Date Last Indicated Resolved Time COVID-19 03/05/2022 03/05/2022 03/15/2022 7:18 PM EDT Assessment Noted Time PHQ-9 Depression Total Score: 2 11/07/19 19 2:06 PM EDT documented as of this encounter Care Teams Milk Drying Machine Operator Relationship Specialty Start Date End Date Caitlyn Bowie MD [address] [address] PCP - General Internal Medicine 05/06/21 documented as of this encounter
--- OUTSIDE RECORDS SUMMARY | 2024-11-21 11:34 | XMS_ITS | Encounter Summary ---
Author Organization [facility] and [facility] Address [address] [place] [address] Care Team Providers Care Aerospace Manager Name Role Phone Caitlyn Bowie MD Primary Care Provider +1- [phone] Encounter Details Date Type Department Care Team (Late st Contact Info) Description 12/28/2021 Scanned Document INTERFACE DEFAULT [address] [place] [address] System, Provider Not In Social History Tobacco [...] [facility] Building [address] [place] [address] Ronald Mills MD [address] [place] [address] [address] [place] [address] documented as of this encounter Visit Diagnoses Not on filedocumented in this encounter Additional Health Concerns Infection Onset Date Last Indicated Resolved Time COVID-19 03/05/2022 03/05/2022 03/15/2022 7:18 PM EDT Assessment Noted Time PHQ-9 Depression Total Score: 2 11/07/19 19 2:06 PM EDT documented as of this encounter Care Teams Aerospace Manager Relationship Specialty Start Date End Date Caitlyn Bowie MD [address] [address] PCP - General Internal Medicine 05/06/21 documented as of this encounter
--- OUTSIDE RECORDS SUMMARY | 2024-11-21 11:34 | XMS_ITS | Encounter Summary ---
Author Organization [facility] and [facility] Address [address] [place] [address] Care Team Providers Care Edge Baster Name Role Phone Caitlyn Bowie MD Primary Care Provider +1- [phone] Encounter Details Date Type Department Care Team (Late st Contact Info) Description 01/26/2018 Scanned Document [facility] Health Information Management [address] [place] [address] External, Provider Social History Tobacco Use Types [...] [facility] Building [address] [place], [place] [address] Ronald Mills MD [address] [place] [address] [address] [place] [address] documented as of this encounter [...] as of this encounter Care Teams Edge Baster Relationship Specialty Start Date End Date Caitlyn Bowie MD 3400 [facility] 1 [place] [address] PCP - General Internal Medicine 05/06/21 Henry Kelly MD Pulmonary Department 175 [facility], [address] [place] [address] Physician Pulmonary Disease 09/06/17 06/22/20 documented as of this encounter
--- OUTSIDE RECORDS SUMMARY | 2024-11-21 11:34 | XMS_ITS | Encounter Summary ---
Author Organization [facility] and [facility] Address 20 [place] [address] Care Team Providers Care Wafer Machine Operator Name Role Phone Caitlyn Bowie MD Primary Care Provider +1- [phone] Encounter Details Date Type Department Care Team (Late st Contact Info) Description 04/03/2018 Scanned Document [facility] [address] [place] [phone] Provider, historical . Social History Tobacco Use [...] [facility] 240 [facility] Building [address] [place], [place] [address] Ronald Mills MD [address] [place] [address] [address] [place] [address] documented as of this encounter [...] documented as of this encounter Care Teams Wafer Machine Operator Relationship Specialty Start Date End Date Caitlyn Bowie MD 3400 [facility] 1 [place] [address] PCP - General Internal Medicine 05/06/21 Henry Kelly MD Pulmonary Department 175 [facility], [address] [place] [address] Physician Pulmonary Disease 09/06/17 06/22/20 documented as of this encounter
--- OUTSIDE RECORDS SUMMARY | 2024-11-21 11:34 | XMS_ITS | Encounter Summary ---
Author Organization [facility] and [facility] Address [address] [place] [address] Care Team Providers Care Traffic Workforce Representative Name Role Phone Caitlyn Bowie MD Primary Care Provider +1- [phone] Encounter Details Date Type Department Care Team (Late st Contact Info) Description 06/26/2018 Scanned Document [facility] Health Information Management [address] [place] [address] External, Provider Social History Tobacco Use Types [...] [facility] 240 [facility] Building [address] [place] [address] Ronald Mills MD 240 [facility] A1 [place] [address] documented as of this encounter Visit Diagnoses Not on filedocumented in this encounter Additional Health Concerns Infection Onset Date Last Indicated Resolved Time COVID-19 03/05/2022 03/05/2022 03/15/2022 7:18 PM EDT documented as of this encounter Care Teams Traffic Workforce Representative Relationship Specialty Start Date End Date Caitlyn Bowie MD 3400 [facility] 1 [place] [address] PCP - General Internal Medicine 05/06/21 Henry Kelly MD Pulmonary Department 175 [facility], [address] [place] [address] Physician Pulmonary Disease 09/06/17 06/22/20 documented as of this encounter
--- OUTSIDE RECORDS SUMMARY | 2024-11-21 11:34 | XMS_ITS | Encounter Summary ---
Author Organization [facility] and [facility] Address [address] [place] [address] Care Team Providers Care Mold Injector Name Role Phone Caitlyn Bowie MD Primary Care Provider +1- [phone] Encounter Details Date Type Department Care Team (Late st Contact Info) Description 04/16/[address] [facility] Health Information Management [address] [place] [address] External, Provider Social History Tobacco Use Types [...] [facility] 240 [facility] Building [address] [place], [place] [phone] Ronald Mills MD 240 [facility] [address]1 [place] [address] documented as of this encounter Visit Diagnoses Not on filedocumented in this encounter Additional Health Concerns Infection Onset Date Last Indicated Resolved Time COVID-19 03/05/2022 03/05/2022 03/15/2022 7:18 PM EDT documented as of this encounter Care Teams Mold Injector Relationship Specialty Start Date End Date Caitlyn Bowie MD 3400 [facility] 1 [place] [address] PCP - General Internal Medicine 05/06/21 Henry Kelly MD Pulmonary Department 175 [facility], [address] [place] [address] Physician Pulmonary Disease 09/06/17 06/22/20 documented as of this encounter
--- OUTSIDE RECORDS SUMMARY | 2024-11-21 11:34 | XMS_ITS | Encounter Summary ---
Author Organization [facility] and [facility] Address [address] [place] [address] Care Team Providers Care General Science Teacher Name Role Phone Caitlyn Bowie MD Primary Care Provider +1- [phone] Encounter Details Date Type Department Care Team (Late st Contact Info) Description 03/14/2018 Scanned Document [facility] Health Information Management [address] [place] [address] External, Provider Social History Tobacco Use Types [...] [facility] 240 [facility] Building [address] [place], [place] [phone] Ronald Mills MD [address] [place] [address] [address]1 [place] [address] documented as of this encounter [...] as of this encounter Care Teams General Science Teacher Relationship Specialty Start Date End Date Caitlyn Bowie MD 3400 [facility] 1 [place] [address] PCP - General Internal Medicine 05/06/21 Henry Kelly MD Pulmonary Department 175 [facility], [address] [place] [address] Physician Pulmonary Disease 09/06/17 06/22/20 documented as of this encounter
--- OUTSIDE RECORDS SUMMARY | 2024-11-21 11:34 | XMS_ITS | Encounter Summary ---
Author Organization [facility] and [facility] Address [address] [place] [address] Care Team Providers Care Site Specialist Name Role Phone Caitlyn Bowie MD Primary Care Provider +1- [phone] Encounter Details Date Type Department Care Team (Late st Contact Info) Description 03/11/2015 Scanned Document [facility] Health Information Management [address] [place] [address] External, Provider Social History Tobacco Use Types [...] [facility] 240 [facility] Building [address] [place], [place] [address] Ronald Mills MD 240 [facility] [address] [place] [address] documented as of this encounter Procedures Procedure Name Priority Date/Time Associated Diagnosis Comments LAB SCAN Routine 03/11/2015 documented in this encounter Results * Lab Scan (03/11/2015) Blood specimen (specimen) us Provider External LAB BLOOD ORDERABLES Edited Re sult - Final [facility] documented in this encounter Visit Diagnoses Not on filedocumented in this encounter Additional Health Concerns Infection Onset Date Last Indicated Resolved Time COVID-19 03/05/2022 03/05/2022 03/15/2022 7:18 PM EDT documented as of this encounter Care Teams Site Specialist Relationship Specialty Start Date End Date Caitlyn Bowie MD 3400 [facility] 1 [place] [address] PCP - General Internal Medicine 05/06/21 Henry Kelly MD Pulmonary Department 175 [facility], [address] [place] [address] Physician Pulmonary Disease 09/06/17 06/22/20 documented as of this encounter
--- OUTSIDE RECORDS SUMMARY | 2024-11-21 11:34 | XMS_ITS | Encounter Summary ---
Author Organization [facility] and [facility] Address [address] [place] [address] Care Team Providers Care Recordak Operator Name Role Phone Caitlyn Bowie MD Primary Care Provider +1- [phone] Encounter Details Date Type Department Care Team (Late st Contact Info) Description 01/28/2018 Scanned Document [facility] Health Information Management [address] [place] [address] External, Provider Social History Tobacco Use Types [...] Center at [facility] 240 [facility] Building [address] [place], [place] [phone] Ronald Mills MD 240 [facility] A1 [place] [address] documented as of this encounter Visit Diagnoses Not on filedocumented in this encounter Additional Health Concerns Infection Onset Date Last Indicated Resolved Time COVID-19 03/05/2022 03/05/2022 03/15/2022 7:18 PM EDT documented as of this encounter Care Teams Recordak Operator Relationship Specialty Start Date End Date Caitlyn Bowie MD 3400 [facility] 1 [place] [address] PCP - General Internal Medicine 05/06/21 Henry Kelly MD Pulmonary Department 175 [facility], [address] [place] [address] Physician Pulmonary Disease 09/06/17 06/22/20 documented as of this encounter
--- OUTSIDE RECORDS SUMMARY | 2024-11-21 11:34 | XMS_ITS | Encounter Summary ---
Author Organization [facility] and [facility] Address [address] [place] [address] Care Team Providers Care Stone Repairer Name Role Phone Caitlyn Bowie MD Primary Care Provider +1- [phone] Encounter Details Date Type Department Care Team (Late st Contact Info) Description 01/26/2018 Scanned Document [facility] Health Information Management [address] [place] [address] External, Provider Social History Tobacco Use Types [...] at [facility] 240 [facility] Building [address] [place] [address] Ronald Mills MD 240 [facility] A1 [place] [address] documented as of this encounter [...] as of this encounter Care Teams Stone Repairer Relationship Specialty Start Date End Date Caitlyn Bowie MD 3400 [facility] 1 [place] [address] PCP - General Internal Medicine 05/06/21 Henry Kelly MD Pulmonary Department 175 [facility], [address] [place] [address] Physician Pulmonary Disease 09/06/17 06/22/20 documented as of this encounter
--- OUTSIDE RECORDS SUMMARY | 2024-11-21 11:34 | XMS_ITS | Encounter Summary ---
Author Organization [facility] and [facility] Address [address] [place] [address] Care Team Providers Care Production Control Planner Name Role Phone Caitlyn Bowie MD Primary Care Provider +1- [phone] Encounter Details Date Type Department Care Team (Late st Contact Info) Description 07/26/2018 Scanned Document [facility] Health Information Management [address] [place] [address] External, Provider Social History Tobacco Use Types [...] at [facility] 240 [facility] Building [address] [place], [place] [phone] Ronald Mills MD 240 [facility] [address]1 [place] [address] documented as of this encounter [...] as of this encounter Care Teams Production Control Planner Relationship Specialty Start Date End Date Caitlyn Bowie MD 3400 [facility] 1 [place] [address] PCP - General Internal Medicine 05/06/21 Henry Kelly MD Pulmonary Department 175 [facility], [address] [place] [address] Physician Pulmonary Disease 09/06/17 06/22/20 documented as of this encounter
--- OUTSIDE RECORDS SUMMARY | 2024-11-21 11:35 | XMS_ITS | Encounter Summary ---
Author Organization [facility] and [facility] Address [address] [place] [address] Care Team Providers Care Lead Security Officer Name Role Phone Caitlyn Bowie MD Primary Care Provider +1- [phone] Encounter Details Date Type Department Care Team (Late st Contact Info) Description 01/02/2024 Scanned Document INTERFACE DEFAULT [address] [place] [address] System, Provider Not In Social History Tobacco [...] [facility] 240 [facility] Building [address] [place], [place] [address] Ronald Mills MD [address] [place] [address] [address] [place] [address] documented as of this encounter [...] as of this encounter Care Teams Lead Security Officer Relationship Specialty Start Date End Date Caitlyn Bowie MD [address] [address] PCP - General Internal Medicine 05/06/21 documented as of this encounter
--- OUTSIDE RECORDS SUMMARY | 2024-11-21 11:35 | XMS_ITS | Encounter Summary ---
Author Organization [facility] and [facility] Address [address] [place] [address] Care Team Providers Care Ship Officer Name Role Phone Caitlyn Bowie MD Primary Care Provider +1- [phone] Encounter Details Date Type Department Care Team (Late st Contact Info) Description 07/28/2022 Scanned Document Onco-Oncology Program at [address] [place] [address] Norma Renee MD [address] [place] [address] 2 [place] [address] Social History Tobacco Use Types [...] 4:00 PM EDT Telemedicine Cancer Center at [address] [place], [place] [address] Ronald Mills MD 240 [facility] A1 [place] [address] documented as of this encounter Visit Diagnoses Not on filedocumented in this encounter Additional Health Concerns Assessment Noted Time PHQ-9 Depression Total Score: 2 11/07/19 19 2:06 PM EDT documented as of this encounter Care Teams Ship Officer Relationship Specialty Start Date End Date Caitlyn Bowie MD [address] [address] PCP - General Internal Medicine 05/06/21 documented as of this encounter
--- OUTSIDE RECORDS SUMMARY | 2024-11-21 11:35 | XMS_ITS | Encounter Summary ---
Author Organization [facility] and [facility] Address [address] [place] [address] Care Team Providers Care Senior Human Resources Representative Name Role Phone Caitlyn Bowie MD Primary Care Provider +1- [phone] Encounter Details Date Type Department Care Team (Late st Contact Info) Description 09/02/2021 Scanned Document INTERFACE DEFAULT [address] [place] [address] System, Provider Not In Social History Tobacco [...] Center at [facility] 240 [facility] Building [address] [place], [place] [phone] Ronald Mills MD [address] [place] [address] [address] [place] [address] documented as of this encounter [...] as of this encounter Care Teams Senior Human Resources Representative Relationship Specialty Start Date End Date Caitlyn Bowie MD [address] [address] PCP - General Internal Medicine 05/06/21 documented as of this encounter
--- OUTSIDE RECORDS SUMMARY | 2024-11-21 11:35 | XMS_ITS | Encounter Summary ---
Author Organization [facility] and [facility] Address [address] [place] [address] Care Team Providers Care Fitting Room Supervisor Name Role Phone Caitlyn Bowie MD Primary Care Provider +1- [phone] Encounter Details Date Type Department Care Team (Late st Contact Info) Description 09/24/2021 Scanned Document INTERFACE DEFAULT [address] [place] [address] System, Provider Not In Social History Tobacco [...] [facility] 240 [facility] [address] [place] [address] Ronald Mills MD [address] [place] [address] [address] [place] [address] documented as of this encounter [...] documented as of this encounter Care Teams Fitting Room Supervisor Relationship Specialty Start Date End Date Caitlyn Bowie MD [facility] [address] [address] PCP - General Internal Medicine 05/06/21 documented as of this encounter
--- OUTSIDE RECORDS SUMMARY | 2024-11-21 11:35 | XMS_ITS | Encounter Summary ---
Author Organization [facility] and [facility] Address [address] [place] [address] Care Team Providers Care Transmitter Supervisor Name Role Phone Caitlyn Bowie MD Primary Care Provider +1- [phone] Encounter Details Date Type Department Care Team (Late st Contact Info) Description 04/25/2021 Scanned Document INTERFACE DEFAULT [address] [place] [address] System, Provider Not In Social History Tobacco [...] Cancer Center at [facility] 240 [facility] Building [address] [place], [place] [address] Ronald Mills MD [address] [place] [address] [address] [place] [address] documented as of this encounter [...] as of this encounter Care Teams Transmitter Supervisor Relationship Specialty Start Date End Date Caitlyn Bowie MD [address] [address] PCP - General Internal Medicine 05/06/21 documented as of this encounter
--- OUTSIDE RECORDS SUMMARY | 2024-11-21 11:35 | XMS_ITS | Encounter Summary ---
Author Organization [facility] Address [address] [place] [address] Phone Care Team Providers Care Dry Goods Clerk Name Role Phone Caitlyn Bowie MD Primary Care Provider +1- [phone] Encounter Details Date Type Department Care Team (Late st Contact Info) Description 10/10/2024 Documentation Only [facility] [address] [place] [address] [place]ra [place], [place] [address] [place] [address] Social History Tobacco Use Types [...] Visit [facility] [address] [place] [address] Rubén Ashraf MD [address] [place] [address] [place] [address] documented as of this encounter Visit Diagnoses Not on filedocumented in this encounter Care Teams Dry Goods Clerk Relationship Specialty Start Date End Date Caitlyn Bowie MD [address] [place], [place] PCP - General Internal Medicine 09/24/24 documented as of this encounter
--- OUTSIDE RECORDS SUMMARY | 2024-11-21 11:35 | XMS_ITS | Encounter Summary ---
Author Organization [facility] and [facility] Address 20 [place] [address] Care Team Providers Care Academic Guidance Specialist Name Role Phone Caitlyn Bowie MD Primary Care Provider +1- [phone] Encounter Details Date Type Department Care Team (Late st Contact Info) Description 05/17/2021 Scanned Document Cancer Center at [address] [address] External, Provider Social History Tobacco Use Types [...] Center at [facility] 240 [facility] Building [address] [place], [place] [address] Ronald Mills MD [address] [place] [address] [address] [place] [address] documented as of this encounter [...] as of this encounter Care Teams Academic Guidance Specialist Relationship Specialty Start Date End Date Caitlyn Bowie MD [address] [address] PCP - General Internal Medicine 05/06/21 documented as of this encounter
--- OUTSIDE RECORDS SUMMARY | 2024-11-21 11:35 | XMS_ITS | Encounter Summary ---
Author Organization [facility] and [facility] Address [address] [place] [address] Care Team Providers Care College Associate Name Role Phone Caitlyn Bowie MD Primary Care Provider +1- [phone] Encounter Details Date Type Department Care Team (Late st Contact Info) Description 06/21/2022 Scanned Document INTERFACE DEFAULT [address] [place] [address] System, Provider Not In Social History Tobacco [...] [facility] 240 [facility] Building [address] [place], [place] [phone] Ronald Mills MD [address] [place] [address] [address] [place] [address] documented as of this encounter [...] as of this encounter Care Teams College Associate Relationship Specialty Start Date End Date Caitlyn Bowie MD [address] [address] PCP - General Internal Medicine 05/06/21 documented as of this encounter
--- OUTSIDE RECORDS SUMMARY | 2024-11-21 11:35 | XMS_ITS | Encounter Summary ---
Author Organization [facility] and [facility] Address [address] [place] [address] Care Team Providers Care Neonatologist Name Role Phone Caitlyn Bowie MD Primary Care Provider +1- [phone] Reason for Visit * Reason Comments Advice Only mass Encounter Details Date Type Department Care Team (Late st Contact Info) Description 09/06/2021 Telephone [facility] at [address] [address] Ronald Mills MD [address] [place] [address] Advice Only (mass) Social History Tobacco [...] at [facility] 240 [facility] Building [address] [place], [place] [id number] Ronald Mills MD 240 [facility] [address] [place] [phone] documented as of this encounter Visit Diagnoses Not on filedocumented in this encounter Additional Health Concerns Infection Onset Date Last Indicated Resolved Time COVID-19 03/05/2022 03/05/2022 03/15/2022 7:18 PM EDT Assessment Noted Time PHQ-9 Depression Total Score: 2 11/07/19 19 2:06 PM EDT documented as of this encounter Care Teams Neonatologist Relationship Specialty Start Date End Date Caitlyn Bowie MD [address] [address] PCP - General Internal Medicine 05/06/21 documented as of this encounter
--- OUTSIDE RECORDS SUMMARY | 2024-11-21 11:35 | XMS_ITS | Encounter Summary ---
Author Organization [facility] Address [address] [place] [address] Care Team Providers Care Shield Operator Name Role Phone Pcp, No Primary Care Provider Brennan Mario MD Primary Care Provider [phone] Caitlyn Bowie MD Primary Care Provider +1- [phone] Encounter Details Date Type Department Care Team (Late st Contact Info) Description 01/04/2022 Scanned Document [facility] Neurology Ophthalmology [address] [address] Yary Whitten DO [address] [place] [address] Social History Tobacco Use Types Packs/Day [...] on filedocumented in this encounter Care Teams Shield Operator Relationship Specialty Start Date End Date Pcp, No PCP - General General Medicine 10/04/21 07/18/22 Brennan [place] MD [address] [place] [address] PCP - General 07/19/22 03/19/23 Caitlyn Bowie MD 3400 [place] [address] PCP - General Internal Medicine 03/20/23 documented as of this encounter
--- OUTSIDE RECORDS SUMMARY | 2024-11-21 11:35 | XMS_ITS | Encounter Summary ---
Author Organization [facility] and [facility] Address [address] [place] [address] Care Team Providers Care Menagerie Superintendent Name Role Phone Caitlyn Bowie MD Primary Care Provider +1- [phone] Encounter Details Date Type Department Care Team (Late st Contact Info) Description 09/01/2023 Scanned Document INTERFACE DEFAULT [address] [place] [address] System, Provider Not In Social History Tobacco [...] [facility] 240 [facility] Building [address] [place] [address] Ronald Mills MD [address] [place] [address] [address] [place] [address] documented as of this encounter Visit Diagnoses Not on filedocumented in this encounter Additional Health Concerns Assessment Noted Time PHQ-9 Depression Total Score: 2 11/07/19 19 2:06 PM EDT documented as of this encounter Care Teams Menagerie Superintendent Relationship Specialty Start Date End Date Caitlyn Bowie MD [address] [address] PCP - General Internal Medicine 05/06/21 documented as of this encounter
--- OUTSIDE RECORDS SUMMARY | 2024-11-21 11:35 | XMS_ITS | Encounter Summary ---
Author Organization [facility] and [facility] Address [address] [place] [address] Care Team Providers Care Dictating Machine Transcriber Name Role Phone Caitlyn Bowie MD Primary Care Provider +1- [phone] Encounter Details Date Type Department Care Team (Late st Contact Info) Description 09/09/2021 Scanned Document INTERFACE DEFAULT [address] [place] [address] System, Provider Not In Social History Tobacco [...] Cancer Center at [facility] 240 [facility] Building [address] [place] [address] Ronald Mills MD [address] [place] [address] [address] [place] [address] documented as of this encounter Visit Diagnoses Not on filedocumented in this encounter Additional Health Concerns Infection Onset Date Last Indicated Resolved Time COVID-19 03/05/2022 03/05/2022 03/15/2022 7:18 PM EDT Assessment Noted Time PHQ-9 Depression Total Score: 2 11/07/19 19 2:06 PM EDT documented as of this encounter Care Teams Dictating Machine Transcriber Relationship Specialty Start Date End Date Caitlyn Bowie MD [address] [address] PCP - General Internal Medicine 05/06/21 documented as of this encounter
--- OUTSIDE RECORDS SUMMARY | 2024-11-21 11:35 | XMS_ITS | Encounter Summary ---
Author Organization [facility] and [facility] Address [address] [place] [address] Care Team Providers Care Major League Baseball Player Name Role Phone Caitlyn Bowie MD Primary Care Provider +1- [phone] Encounter Details Date Type Department Care Team (Late st Contact Info) Description 08/23/2022 Abstract Cardiovascular Medicine at [address] [place] [address] Norma Renee MD [address] [place] [phone] Social History Tobacco Use Types Packs/Day Years [...] PM EDT Telemedicine Cancer Center at [address] [place] [address] Ronald Mills MD [address] [place] [address] [address] [place] [address] documented as of this encounter Visit Diagnoses Not on filedocumented in this encounter Additional Health Concerns Assessment Noted Time PHQ-9 Depression Total Score: 2 11/07/19 19 2:06 PM EDT documented as of this encounter Care Teams Major League Baseball Player Relationship Specialty Start Date End Date Caitlyn Bowie MD [address] [address] PCP - General Internal Medicine 05/06/21 documented as of this encounter
--- OUTSIDE RECORDS SUMMARY | 2024-11-21 11:35 | XMS_ITS | Encounter Summary ---
Author Organization [facility] and [facility] Address [address] [place] [address] Care Team Providers Care Natural Gas Engineer Name Role Phone Caitlyn Bowie MD Primary Care Provider +1- [phone] Encounter Details Date Type Department Care Team (Late st Contact Info) Description 07/07/2021 Scanned Document INTERFACE DEFAULT [address] [place] [address] System, Provider Not In Social History Tobacco [...] Cancer Center at [facility] 240 [facility] Building [address] [place] [address] Ronald Mills MD [address] [place] [address] [address] [place] [address] documented as of this encounter Visit Diagnoses Not on filedocumented in this encounter Additional Health Concerns Infection Onset Date Last Indicated Resolved Time COVID-19 03/05/2022 03/05/2022 03/15/2022 7:18 PM EDT Assessment Noted Time PHQ-9 Depression Total Score: 2 11/07/19 19 2:06 PM EDT documented as of this encounter Care Teams Natural Gas Engineer Relationship Specialty Start Date End Date Caitlyn Bowie MD [address] [address] PCP - General Internal Medicine 05/06/21 documented as of this encounter
--- OUTSIDE RECORDS SUMMARY | 2024-11-21 11:35 | XMS_ITS | Encounter Summary ---
Author Organization [facility] and [facility] Address [address] [place] [address] Care Team Providers Care Pizza Delivery Driver Name Role Phone Caitlyn Bowie MD Primary Care Provider +1- [phone] Encounter Details Date Type Department Care Team (Late st Contact Info) Description 06/27/2022 Scanned Document INTERFACE DEFAULT [address] [place] [address] System, Provider Not In Social History Tobacco [...] Cancer Center 240 [facility] Building [address] [place], [place] [address] Ronald Mills MD [address] [place] [address] [address] [place] [address] documented as of this encounter [...] documented as of this encounter Care Teams Pizza Delivery Driver Relationship Specialty Start Date End Date Caitlyn Bowie MD [facility] [address] [address] PCP - General Internal Medicine 05/06/21 documented as of this encounter
--- OUTSIDE RECORDS SUMMARY | 2024-11-21 11:35 | XMS_ITS | Encounter Summary ---
Author Organization [facility] and [facility] Address [address] [place] [address] Care Team Providers Care Musical Instrument Supervisor Name Role Phone Caitlyn Bowie MD Primary Care Provider +1- [phone] Encounter Details Date Type Department Care Team (Late st Contact Info) Description 09/23/2021 Scanned Document INTERFACE DEFAULT [address] [place] [address] System, Provider Not In Social History Tobacco [...] [facility] Building [address] [place], [place] [address] Ronald Mills MD [address] [place] [address] [address] [place] [address] documented as [...] documented as of this encounter Care Teams Musical Instrument Supervisor Relationship Specialty Start Date End Date Caitlyn Bowie MD [address] [address] PCP - General Internal Medicine 05/06/21 documented as of this encounter
--- OUTSIDE RECORDS SUMMARY | 2024-11-21 11:35 | XMS_ITS | Encounter Summary ---
Author Organization [facility] and [facility] Address [address] [place] [address] Care Team Providers Care Cleaning And Washing Equipment Operator Name Role Phone Caitlyn Bowie MD Primary Care Provider +1- [phone] Encounter Details Date Type Department Care Team (Late st Contact Info) Description 06/08/2022 Scanned Document INTERFACE DEFAULT [address] [place] [address] System, Provider Not In Social History Tobacco [...] at [facility] 240 [facility] Building [address] [place], [place] [address] Ronald Mills MD [address] [place] [address] [address]1 [place] [address] documented as of this encounter [...] documented as of this encounter Care Teams Cleaning And Washing Equipment Operator Relationship Specialty Start Date End Date Caitlyn Bowie MD [address] [address] PCP - General Internal Medicine 05/06/21 documented as of this encounter
--- OUTSIDE RECORDS SUMMARY | 2024-11-21 11:35 | XMS_ITS | Encounter Summary ---
Author Organization [facility] and [facility] Address [address] [place] [address] Care Team Providers Care Airline Mechanic Name Role Phone Caitlny Bowie MD Primary Care Provider +1- [phone] Encounter Details Date Type Department Care Team (Late st Contact Info) Description 06/28/2022 Scanned Document INTERFACE DEFAULT [address] [place] [address] System, Provider Not In Social History Tobacco [...] [facility] Building [address] [place], [place] [address] Ronald Mills MD [address] [place] [address] [address] [place] [address] documented as of this encounter [...] as of this encounter Care Teams Airline Mechanic Relationship Specialty Start Date End Date Caitlyn Bowie MD [address] [address] PCP - General Internal Medicine 05/06/21 documented as of this encounter
--- OUTSIDE RECORDS SUMMARY | 2024-11-21 11:35 | XMS_ITS | Encounter Summary ---
Author Organization [facility] and [facility] Address [address] [place] [address] Care Team Providers Care Verification Specialist Name Role Phone Caitlyn Bowie MD Primary Care Provider +1- [phone] Encounter Details Date Type Department Care Team (Late st Contact Info) Description 04/26/2021 Scanned Document INTERFACE DEFAULT [address] [place] [address] System, Provider Not In Social History Tobacco [...] Center at [facility] 240 [facility] Building [address] [place], [place] [id number] Ronald Mills MD [address] [place] [address] [address] [place] [address] documented as of this encounter [...] documented as of this encounter Care Teams Verification Specialist Relationship Specialty Start Date End Date Caitlyn Bowie MD [address] [address] PCP - General Internal Medicine 05/06/21 documented as of this encounter
--- OUTSIDE RECORDS SUMMARY | 2024-11-21 11:35 | XMS_ITS | Encounter Summary ---
Author Organization [facility] and [facility] Address [address] [place] [address] Care Team Providers Care Fire Prevention Chief Name Role Phone Caitlyn Bowie MD Primary Care Provider +1- [phone] Encounter Details Date Type Department Care Team (Late st Contact Info) Description 06/24/2022 Scanned Document INTERFACE DEFAULT [address] [place] [address] System, Provider Not In Social History Tobacco [...] [facility] Building [address] [place], [place] [phone] Ronald Mills MD [address] [place] [address] [address] [place] [address] documented as of this encounter [...] as of this encounter Care Teams Fire Prevention Chief Relationship Specialty Start Date End Date Caitlyn Bowie MD [address] [address] PCP - General Internal Medicine 05/06/21 documented as of this encounter
--- OUTSIDE RECORDS SUMMARY | 2024-11-21 11:35 | XMS_ITS | Encounter Summary ---
Author Organization [facility] Address [address] [place] [address] Care Team Providers Care Cylindrical Mixer Name Role Phone Caitlyn Bowie MD Primary Care Provider +1- [phone] Encounter Details Date Type Department Care Team (Late st Contact Info) Description 07/06/2021 Scanned Document INTERFACE DEFAULT [address] [place] [address] System, Provider Not In Social History Tobacco [...] Center at [facility] 240 [facility] Building [address] [place] [address] Ronald Mills MD [address] [place] [address] [address] [place] [address] documented as of this encounter Visit Diagnoses Not on filedocumented in this encounter Additional Health Concerns Infection Onset Date Last Indicated Resolved Time COVID-19 03/05/2022 03/05/2022 03/15/2022 7:18 PM EDT Assessment Noted Time PHQ-9 Depression Total Score: 2 11/07/19 19 2:06 PM EDT documented as of this encounter Care Teams Cylindrical Mixer Relationship Specialty Start Date End Date Caitlyn Bowie MD [address] [address] PCP - General Internal Medicine 05/06/21 documented as of this encounter
--- OUTSIDE RECORDS SUMMARY | 2024-11-21 11:35 | XMS_ITS | Encounter Summary ---
Author Organization [facility] Address [address] [place] [address] Care Team Providers Care Banquet Cook Name Role Phone Caitlyn Bowie MD Primary Care Provider +1- [phone] Encounter Details Date Type Department Care Team (Late st Contact Info) Description 05/05/2021 Scanned Document INTERFACE DEFAULT [address] [place] [address] System, Provider Not In Social History Tobacco [...] [facility] 240 [facility] Building [address] [place] [address] Ronald Mills MD [address] [place] [address] [address] [place] [address] documented as of this encounter Visit Diagnoses Not on filedocumented in this encounter Additional Health Concerns Infection Onset Date Last Indicated Resolved Time COVID-19 03/05/2022 03/05/2022 03/15/2022 7:18 PM EDT Assessment Noted Time PHQ-9 Depression Total Score: 2 11/07/19 19 2:06 PM EDT documented as of this encounter Care Teams Banquet Cook Relationship Specialty Start Date End Date Caitlyn Bowie MD [address] [address] PCP - General Internal Medicine 05/06/21 documented as of this encounter
--- OUTSIDE RECORDS SUMMARY | 2024-11-21 11:35 | XMS_ITS | Encounter Summary ---
Author Organization [facility] and [facility] Address [address] [place] [address] Care Team Providers Care Long Distance Billing Operator Name Role Phone Caitlyn Bowie MD Primary Care Provider +1- [phone] Encounter Details Date Type Department Care Team (Late st Contact Info) Description 10/24/2022 Scanned Document INTERFACE DEFAULT [address] [place] [address] System, Provider Not In Social History Tobacco [...] [facility] 240 [facility] Building [address] [place], [place] [address] Ronald Mills MD [address] [place] [address] [address] [place] [address] documented as of this [...] documented as of this encounter Care Teams Long Distance Billing Operator Relationship Specialty Start Date End Date Caitlyn Bowie MD [facility] [address] [address] PCP - General Internal Medicine 05/06/21 documented as of this encounter
--- OUTSIDE RECORDS SUMMARY | 2024-11-21 11:35 | XMS_ITS | Encounter Summary ---
Author Organization [facility] and [facility] Address [address] [place] [address] Care Team Providers Care Stoneworker Name Role Phone Caitlyn Bowie MD Primary Care Provider +1- [phone] Encounter Details Date Type Department Care Team (Late Contact Info) Description 01/31/2023 Abstract [facility] Mel[facility] [place] [address] Shilpi Romero, RN Social History Tobacco Use [...] [facility] 240 [facility] Building [address] [place], [place] [address] Ronald Mills MD 240 [facility] [address] [place] [address] documented as of this encounter Visit Diagnoses Not on filedocumented in this encounter Additional Health Concerns Assessment Noted Time PHQ-9 Depression Total Score: 2 11/07/19 19 2:06 PM EDT documented as of this encounter Care Teams Stoneworker Relationship Specialty Start Date End Date Caitlyn Bowie MD [address] [address] PCP - General Internal Medicine 05/06/21 documented as of this encounter
--- OUTSIDE RECORDS SUMMARY | 2024-11-21 11:35 | XMS_ITS | Encounter Summary ---
Author Organization [facility] and [facility] Address [address] [place] [address] Care Team Providers Care Healthcare Customer Service Name Role Phone Caitlyn Bowie MD Primary Care Provider +1- [phone] Encounter Details Date Type Department Care Team (Late st Contact Info) Description 07/22/2021 Scanned Document INTERFACE DEFAULT [address] [place] [address] System, Provider Not In Social History Tobacco [...] at [facility] 240 [facility] Building [address] [place], [place] [address] Ronald Mills MD [address] [place] [address] [address] [place] [address] documented as of this encounter [...] documented as of this encounter Care Teams Healthcare Customer Service Relationship Specialty Start Date End Date Caitlyn Bowie MD [address] [address] PCP - General Internal Medicine 05/06/21 documented as of this encounter
--- OUTSIDE RECORDS SUMMARY | 2024-11-21 11:35 | XMS_ITS | Encounter Summary ---
Author Organization [facility] and [facility] Address [address] [place] [address] Care Team Providers Care Ip Technology Transactions Attorney Name Role Phone Caitlyn Bowie MD Primary Care Provider +1- [phone] Encounter Details Date Type Department Care Team (Late st Contact Info) Description 06/23/2022 Scanned Document INTERFACE DEFAULT [address] [place] [address] System, Provider Not In Social History Tobacco [...] [facility] Building [address] [place] [address] Ronald Mills MD [address] [place] [address] [address]1 [place] [address] documented as of this encounter Visit Diagnoses Not on filedocumented in this encounter Additional Health Concerns Assessment Noted Time PHQ-9 Depression Total Score: 2 11/07/19 19 2:06 PM EDT documented as of this encounter Care Teams Ip Technology Transactions Attorney Relationship Specialty Start Date End Date Caitlyn Bowie MD [address] [address] PCP - General Internal Medicine 05/06/21 documented as of this encounter
--- OUTSIDE RECORDS SUMMARY | 2024-11-21 11:35 | XMS_ITS | Encounter Summary ---
Author Organization [facility] and [facility] Address [address] [place] [address] Care Team Providers Care Trawl Net Maker Name Role Phone Caitlyn Bowie MD Primary Care Provider +1- [phone] Encounter Details Date Type Department Care Team (Late st Contact Info) Description 04/28/2021 Scanned Document INTERFACE DEFAULT [address] [place] [address] System, Provider Not In Social History Tobacco [...] [facility] Building [address] [place], [place] [phone] Ronald Mills MD [address] [place] [address] [address] [place] [address] documented as of this encounter [...] documented as of this encounter Care Teams Trawl Net Maker Relationship Specialty Start Date End Date Caitlyn Bowie MD [address] [address] PCP - General Internal Medicine 05/06/21 documented as of this encounter
--- OUTSIDE RECORDS SUMMARY | 2024-11-21 11:35 | XMS_ITS | Encounter Summary ---
Author Organization [facility] and [facility] Address [address] [place] [address] Care Team Providers Care Upfitter Name Role Phone Caitlyn Bowie MD Primary Care Provider +1- [phone] Encounter Details Date Type Department Care Team (Late st Contact Info) Description 04/24/2021 Scanned Document INTERFACE DEFAULT [address] [place] [address] System, Provider Not In Social History Tobacco [...] [facility] 240 [facility] Building [address] [place], [place] [address] Ronald Mills MD [address] [place] [address] [address] [place] [address] documented as of this [...] documented as of this encounter Care Teams Upfitter Relationship Specialty Start Date End Date Caitlyn Bowie MD [address] [address] PCP - General Internal Medicine 05/06/21 documented as of this encounter
--- OUTSIDE RECORDS SUMMARY | 2024-11-21 11:35 | XMS_ITS | Encounter Summary ---
Author Organization [facility] and [facility] Address [address] [place] [address] Care Team Providers Care Market Research Coordinator Name Role Phone Caitlyn Bowie MD Primary Care Provider +1- [phone] Encounter Details Date Type Department Care Team (Late st Contact Info) Description 07/08/2022 Scanned Document Cardiovascular Medicine at [address] [place] [phone] Norma Renee MD [address] [place] [phone] Social History Tobacco Use Types Packs/Day Years [...] 4:00 PM EDT Telemedicine Cancer Center at [address] [place] [address] Ronald Mills MD [address] [place] [address] [address]1 [place] [address] documented as of this encounter Visit Diagnoses Not on filedocumented in this encounter Additional Health Concerns Assessment Noted Time PHQ-9 Depression Total Score: 2 11/07/19 19 2:06 PM EDT documented as of this encounter Care Teams Market Research Coordinator Relationship Specialty Start Date End Date Caitlyn Bowie MD [address] [address] PCP - General Internal Medicine 05/06/21 documented as of this encounter
--- OUTSIDE RECORDS SUMMARY | 2024-11-21 11:35 | XMS_ITS | Encounter Summary ---
Author Organization [facility] and [facility] Address [address] [place] [address] Care Team Providers Care Cnc Operator Programmer Name Role Phone Caitlyn Bowie MD Primary Care Provider +1- [phone] Encounter Details Date Type Department Care Team (Late st Contact Info) Description 12/23/2022 Scanned Document INTERFACE DEFAULT [address] [place] [address] System, Provider Not In Social History Tobacco [...] [facility] 240 [facility] [address] [place] [address] Ronald Mills MD [address] [place] [address] [address] [place] [address] documented as of this encounter Visit Diagnoses Not on filedocumented in this encounter Additional Health Concerns Assessment Noted Time PHQ-9 Depression Total Score: 2 11/07/19 19 2:06 PM EDT documented as of this encounter Care Teams Cnc Operator Programmer Relationship Specialty Start Date End Date Caitlyn Bowie MD [address] [address] PCP - General Internal Medicine 05/06/21 documented as of this encounter
--- OUTSIDE RECORDS SUMMARY | 2024-11-21 11:35 | XMS_ITS | Encounter Summary ---
Author Organization [facility] and [place] [facility] Address [address] [place] [address] Care Team Providers Care Otr Tanker Truck Driver Name Role Phone Caitlyn Bowie MD Primary Care Provider +1- [phone] Encounter Details Date Type Department Care Team (Late st Contact Info) Description 06/20/2022 Scanned Document INTERFACE DEFAULT [address] [place] [address] System, Provider Not In Social History Tobacco [...] [facility] 240 [facility] Building [address] [place], [place] [address] Ronald Mills MD [address] [place] [address] [address] [place] [address] documented as of this encounter [...] as of this encounter Care Teams Otr Tanker Truck Driver Relationship Specialty Start Date End Date Caitlyn Bowie MD [facility] [address] [address] PCP - General Internal Medicine 05/06/21 documented as of this encounter
--- OUTSIDE RECORDS SUMMARY | 2024-11-21 11:35 | XMS_ITS | Encounter Summary ---
Author Organization [facility] and [facility] Address [address] [place] [address] Care Team Providers Care Pilot Steam Yacht Name Role Phone Caitlyn Bowie MD Primary Care Provider +1- [phone] Encounter Details Date Type Department Care Team (Late st Contact Info) Description 09/10/2021 Scanned Document Cardiovascular Medicine at [address] [place] [phone] Norma Renee MD [address] [place] [phone] Social History Tobacco Use Types Packs/Day Years [...] PM EDT Telemedicine Cancer Center at [address] [place] [address] Ronald Mills MD [address] [place] [address] [address] [place] [address] documented as of this encounter Visit Diagnoses Not on filedocumented in this encounter Additional Health Concerns Infection Onset Date Last Indicated Resolved Time COVID-19 03/05/2022 03/05/2022 03/15/2022 7:18 PM EDT Assessment Noted Time PHQ-9 Depression Total Score: 2 11/07/19 19 2:06 PM EDT documented as of this encounter Care Teams Pilot Steam Yacht Relationship Specialty Start Date End Date Caitlyn Bowie MD [address] [address] PCP - General Internal Medicine 05/06/21 documented as of this encounter
--- OUTSIDE RECORDS SUMMARY | 2024-11-21 11:35 | XMS_ITS | Encounter Summary ---
Author Organization [facility] Address [address] [place] [address] Care Team Providers Care Management Professional Name Role Phone Caitlyn Bowie MD Primary Care Provider +1- [phone] Encounter Details Date Type Department Care Team (Late st Contact Info) Description 04/29/2021 Scanned Document INTERFACE DEFAULT [address] [place] [address] System, Provider Not In Social History Tobacco [...] [facility] 240 [facility] Building [address] [place] [address] Ronald Mills MD [address] [place] [address] [address] [place] [address] documented as of this encounter [...] as of this encounter Care Teams Management Professional Relationship Specialty Start Date End Date Caitlyn Bowie MD [address] [address] PCP - General Internal Medicine 05/06/21 documented as of this encounter
--- OUTSIDE RECORDS SUMMARY | 2024-11-21 11:35 | XMS_ITS | Encounter Summary ---
Author Organization [facility] and [facility] Address [address] [place] [address] Care Team Providers Care Spring Setter Name Role Phone Caitlyn Bowie MD Primary Care Provider +1- [phone] Encounter Details Date Type Department Care Team (Late st Contact Info) Description 04/27/2021 Scanned Document INTERFACE DEFAULT [address] [place] [address] System, Provider Not In Social History Tobacco [...] [facility] 240 [facility] Building [address] [place] [address] Ronald Mills MD [address] [place] [address] [address] [place] [address] documented as of this encounter [...] as of this encounter Care Teams Spring Setter Relationship Specialty Start Date End Date Caitlyn Bowie MD [address] [address] PCP - General Internal Medicine 05/06/21 documented as of this encounter
--- OUTSIDE RECORDS SUMMARY | 2024-11-21 11:35 | XMS_ITS | Encounter Summary ---
Author Organization [facility] and [facility] Address [address] [place] [address] Care Team Providers Care Culinary Worker Name Role Phone Caitlyn Bowie MD Primary Care Provider +1- [phone] Encounter Details Date Type Department Care Team (Late st Contact Info) Description 09/07/2021 Scanned Document INTERFACE DEFAULT [address] [place] [address] System, Provider Not In Social History Tobacco [...] Telemedicine [facility] Center at [facility] 240 [facility] Building [address] [place], [place] [address] Ronald Mills MD [address] [place] [address] [address] [place] [address] documented as of this encounter [...] as of this encounter Care Teams Culinary Worker Relationship Specialty Start Date End Date Caitlyn Bowie MD [address] [address] PCP - General Internal Medicine 05/06/21 documented as of this encounter
--- OUTSIDE RECORDS SUMMARY | 2024-11-21 11:36 | XMS_ITS | Encounter Summary ---
Author Organization [facility] and [facility] Address [address] [place] [address] Care Team Providers Care Pot Liner Name Role Phone Caitlyn Bowie MD Primary Care Provider +1- [phone] Encounter Details Date Type Department Care Team (Late st Contact Info) Description 04/20/2023 Scanned Document INTERFACE DEFAULT [address] [place] [address] System, Provider Not In Social History Tobacco [...] [facility] 240 [facility] Building [address] [place], [place] [phone] Ronald Mills MD [address] [place] [address] [address] [place] [address] documented as of this encounter [...] documented as of this encounter Care Teams Pot Liner Relationship Specialty Start Date End Date Caitlyn Bowie MD [address] [address] PCP - General Internal Medicine 05/06/21 documented as of this encounter
--- OUTSIDE RECORDS SUMMARY | 2024-11-21 11:36 | XMS_ITS | Encounter Summary ---
Author Organization [facility] and [facility] Address [address] [place] [address] Care Team Providers Care Newspaper Correspondent Name Role Phone Caitlyn Bowie MD Primary Care Provider +1- [phone] Encounter Details Date Type Department Care Team (Late st Contact Info) Description 04/18/2022 Scanned Document INTERFACE DEFAULT [address] [place] [address] System, Provider Not In Social History Tobacco [...] [facility] 240 [facility] Building [address] [place] [address] Ronald Mills MD [address] [place] [address] [address] [place] [address] documented as of this encounter Visit Diagnoses Not on filedocumented in this encounter Additional Health Concerns Assessment Noted Time PHQ-9 Depression Total Score: 2 11/07/19 19 2:06 PM EDT documented as of this encounter Care Teams Newspaper Correspondent Relationship Specialty Start Date End Date Caitlyn Bowie MD [address] [address] PCP - General Internal Medicine 05/06/21 documented as of this encounter
--- OUTSIDE RECORDS SUMMARY | 2024-11-21 11:36 | XMS_ITS | Encounter Summary ---
Author Organization [facility] and [facility] Address [address] [place] [address] Care Team Providers Care District Adviser Name Role Phone Caitlyn Bowie MD Primary Care Provider +1- [phone] Encounter Details Date Type Department Care Team (Late st Contact Info) Description 12/31/2015 Scanned Document Elect[facility]iology [facility]iac Arrhythmia Program [address] [place] [address] External, Provider Social History Tobacco Use Types [...] [facility] 240 [facility] Building [address] [place], [place] [address] Ronald Mills MD [address] [place] [address] [address]1 [place] [address] documented as of this encounter Procedures Procedure Name Priority Date/Time Associated Diagnosis Comments LAB SCAN Routine 12/31/2015 documented in this encounter Results * Lab Scan (12/31/2015) Blood specimen (specimen) us Provider External LAB BLOOD ORDERABLES Final Res ult Performing Organization Address City/State/[facility] Co de Phone Number [facility] documented in this encounter Visit Diagnoses Not on filedocumented in this encounter Additional Health Concerns Infection Onset Date Last Indicated Resolved Time COVID-19 03/05/2022 03/05/2022 03/15/2022 7:18 PM EDT documented as of this encounter Care Teams District Adviser Relationship Specialty Start Date End Date Caitlyn Bowie MD 3400 [facility] 1 [place] [address] PCP - General Internal Medicine 05/06/21 Henry Kelly MD Pulmonary Department 175 [facility] [place] [address] Physician Pulmonary Disease 09/06/17 06/22/20 documented as of this encounter
--- OUTSIDE RECORDS SUMMARY | 2024-11-21 11:36 | XMS_ITS | Encounter Summary ---
Author Organization [facility] Address [address] [place] [address] Care Team Providers Care Senior Corporate Accountant Name Role Phone Caitlyn Bowie MD Primary Care Provider +1- [phone] Encounter Details Date Type Department Care Team (Late st Contact Info) Description 09/28/2015 Scanned Document [facility] Health Information Management [address] [place] [address] External, Provider Social History Tobacco Use Types [...] [facility] 240 [facility] Building [address] [place], [place] [address] Ronald Mills MD 240 [facility] [address] [place] [address] documented as of this encounter Procedures Procedure Name Priority Date/Time Associated Diagnosis Comments LAB SCAN Routine 09/09/2015 documented in this encounter Results * Lab Scan (09/09/2015) Blood specimen (specimen) us Provider External LAB BLOOD ORDERABLES Final Res ult [facility] documented in this encounter Visit Diagnoses Not on filedocumented in this encounter Additional Health Concerns Infection Onset Date Last Indicated Resolved Time COVID-19 03/05/2022 03/05/2022 03/15/2022 7:18 PM EDT documented as of this encounter Care Teams Senior Corporate Accountant Relationship Specialty Start Date End Date Caitlyn Bowie MD [address] [facility] 1 [place] [address] PCP - General Internal Medicine 05/06/21 Henry Kelly MD Pulmonary Department 175 [facility], [address] [place] [address] Physician Pulmonary Disease 09/06/17 06/22/20 documented as of this encounter
--- OUTSIDE RECORDS SUMMARY | 2024-11-21 11:36 | XMS_ITS | Encounter Summary ---
Author Organization [facility] and [facility] Address [address] [place] [address] Care Team Providers Care Back End Developer Name Role Phone Caitlyn Bowie MD Primary Care Provider +1- [phone] Encounter Details Date Type Department Care Team (Late st Contact Info) Description 09/24/2015 Scanned Document Digestive Diseases at [facility] 40 [facility] [address] [place] [address] Kevin Espinoza MD [address] [place] [phone] Social History Tobacco Use Types Packs/Day [...] PM EDT Telemedicine Cancer Center at [address] [place], [place] [address] Ronald Mills MD [address] [place] [address] [address] [place] [address] documented as of this encounter Visit Diagnoses Not on filedocumented in this encounter Additional Health Concerns Infection Onset Date Last Indicated Resolved Time COVID-19 03/05/2022 03/05/2022 03/15/2022 7:18 PM EDT documented as of this encounter Care Teams Back End Developer Relationship Specialty Start Date End Date Caitlyn Bowie MD 3400 [facility] 1 [place] [address] PCP - General Internal Medicine 05/06/21 Henry Kelly MD Pulmonary Department 175 [facility] [place] [address] Physician Pulmonary Disease 09/06/17 06/22/20 documented as of this encounter
--- OUTSIDE RECORDS SUMMARY | 2024-11-21 11:36 | XMS_ITS | Encounter Summary ---
Author Organization [facility] Address [address] [place] [address] Care Team Providers Care Edge Dyer Name Role Phone Caitlyn Bowie MD Primary Care Provider +1- [phone] Encounter Details Date Type Department Care Team (Late st Contact Info) Description 05/02/2022 Scanned Document INTERFACE DEFAULT [address] [place] [address] System, Provider Not In Social History Tobacco [...] [facility] 240 [facility] [address] [place] [address] Ronald Mills MD [address] [place] [address] [address] [place] [address] documented as of this encounter [...] as of this encounter Care Teams Edge Dyer Relationship Specialty Start Date End Date Caitlyn Bowie MD [address] [address] PCP - General Internal Medicine 05/06/21 documented as of this encounter
--- OUTSIDE RECORDS SUMMARY | 2024-11-21 11:36 | XMS_ITS | Encounter Summary ---
Author Organization [facility] and [facility] Address [address] [place] [address] Care Team Providers Care Digital Marketing Specialist Name Role Phone Caitlyn Bowie MD Primary Care Provider +1- [phone] Encounter Details Date Type Department Care Team (Late st Contact Info) Description 04/22/2022 Scanned Document INTERFACE DEFAULT [address] [place] [address] System, Provider Not In Social History Tobacco [...] [facility] [address] [facility] Building [address] [place], [place] [address] Ronald Mills MD [address] [place] [address] [address] [place] [address] documented as of this encounter [...] as of this encounter Care Teams Digital Marketing Specialist Relationship Specialty Start Date End Date Caitlyn Bowie MD [address] [address] PCP - General Internal Medicine 05/06/21 documented as of this encounter
--- OUTSIDE RECORDS SUMMARY | 2024-11-21 11:36 | XMS_ITS | Encounter Summary ---
Author Organization [facility] Address [address] [place] [address] Care Team Providers Care Truck Crane Operator Name Role Phone Caitlyn Bowie MD Primary Care Provider +1- [phone] Encounter Details Date Type Department Care Team (Late st Contact Info) Description 04/19/2023 Scanned Document INTERFACE DEFAULT [address] [place] [address] System, Provider Not In Social History Tobacco [...] [facility] 240 [facility] Building [address] [place], [place] [id number] Ronald Mills MD [address] [place] [address] [address] [place] [address] documented as [...] as of this encounter Care Teams Truck Crane Operator Relationship Specialty Start Date End Date Caitlyn Bowie MD [address] [address] PCP - General Internal Medicine 05/06/21 documented as of this encounter
--- OUTSIDE RECORDS SUMMARY | 2024-11-21 11:36 | XMS_ITS | Encounter Summary ---
Author Organization [facility] and [facility] Address [address] [place] [address] Care Team Providers Care Outsole Paraffiner Name Role Phone Caitlyn Bowie MD Primary Care Provider +1- [phone] Encounter Details Date Type Department Care Team (Late st Contact Info) Description 05/16/2023 Scanned Document INTERFACE DEFAULT [address] [place] [address] System, Provider Not In Social History Tobacco [...] [facility] 240 [facility] Building [address] [place], [place] [phone] Ronald Mills MD [address] [place] [address] [address] [place] [address] documented as of this encounter [...] documented as of this encounter Care Teams Outsole Paraffiner Relationship Specialty Start Date End Date Caitlyn Bowie MD [address] [address] PCP - General Internal Medicine 05/06/21 documented as of this encounter
--- OUTSIDE RECORDS SUMMARY | 2024-11-21 11:36 | XMS_ITS | Encounter Summary ---
Author Organization [facility] and [facility] Address [address] [place] [address] Care Team Providers Care Auto Body Repairman Name Role Phone Caitlyn Bowie MD Primary Care Provider +1- [phone] Encounter Details Date Type Department Care Team (Late st Contact Info) Description 05/10/2022 Scanned Document Cardiovascular Medicine at [address] [place] [phone] Norma Renee MD [address] [place] [phone] Social History Tobacco Use Types Packs/Day Years [...] 4:00 PM EDT Telemedicine [facility] at [address] [place] [address] Ronald Mills MD [address] [place] [address] [address] [place] [address] documented as of this encounter Visit Diagnoses Not on filedocumented in this encounter Additional Health Concerns Assessment Noted Time PHQ-9 Depression Total Score: 2 11/07/19 19 2:06 PM EDT documented as of this encounter Care Teams Auto Body Repairman Relationship Specialty Start Date End Date Caitlyn Bowie MD [address] [address] PCP - General Internal Medicine 05/06/21 documented as of this encounter
--- OUTSIDE RECORDS SUMMARY | 2024-11-21 11:36 | XMS_ITS | Encounter Summary ---
Author Organization [facility] Address [address] [place] [address] [address] [place] [address] Phone Care Team Providers Care Smoke Room Operator Name Role Phone Caitlyn Bowie MD Primary Care Provider +1- [phone] Encounter Details Date Type Department Care Team (Late st Contact Info) Description 08/30/2024 Abstract [facility] [address] [place] [address] [address] [place] [address] Adalgisa Whitney MD [address] [place] [address] [address] [place] [address] Social History Tobacco Use Types [...] PM EDT Telemedicine [facility] at [address] [place] [address] Ronald Mills MD 240 [facility] [address] [place] [address] documented as of this encounter Visit Diagnoses Not on filedocumented in this encounter Additional Health Concerns Assessment Noted Time PHQ-9 Depression Total Score: 2 11/07/19 19 2:06 PM EDT documented as of this encounter Care Teams Smoke Room Operator Relationship Specialty Start Date End Date Caitlyn Bowie MD [address] [address] PCP - General Internal Medicine 05/06/21 documented as of this encounter
--- OUTSIDE RECORDS SUMMARY | 2024-11-21 11:36 | XMS_ITS | Encounter Summary ---
Author Organization [facility] and [facility] Address [address] [place] [address] Care Team Providers Care Exchange Engineer Name Role Phone Caitlyn Bowie MD Primary Care Provider +1- [phone] Encounter Details Date Type Department Care Team (Late st Contact Info) Description 04/16/2022 Scanned Document INTERFACE DEFAULT [address] [place] [address] System, Provider Not In Social History Tobacco [...] at [facility] 240 [facility] Building [address] [place], [place] [phone] Ronald Mills MD [address] [place] [address] [address] [place] [address] documented as of this encounter [...] as of this encounter Care Teams Exchange Engineer Relationship Specialty Start Date End Date Caitlyn Bowie MD [address] [address] PCP - General Internal Medicine 05/06/21 documented as of this encounter
--- OUTSIDE RECORDS SUMMARY | 2024-11-21 11:36 | XMS_ITS | Encounter Summary ---
Author Organization [facility] Address [address] [place] [address] Care Team Providers Care Fly Finisher Name Role Phone Caitlyn Bowie MD Primary Care Provider +1- [phone] Encounter Details Date Type Department Care Team (Late st Contact Info) Description 04/28/2022 Scanned Document INTERFACE DEFAULT [address] [place] [address] System, Provider Not In Social History Tobacco [...] [facility] 240 [facility] Building [address] [place], [place] [phone] Ronald Mills MD [address] [place] [address] [address] [place] [address] documented as of this encounter [...] documented as of this encounter Care Teams Fly Finisher Relationship Specialty Start Date End Date Caitlyn Bowie MD [facility] [address] [address] PCP - General Internal Medicine 05/06/21 documented as of this encounter
--- OUTSIDE RECORDS SUMMARY | 2024-11-21 11:36 | XMS_ITS | Encounter Summary ---
Author Organization [facility] Address [address] [place] [address] Care Team Providers Care Account Liaison Name Role Phone Caitlyn Bowie MD Primary Care Provider +1- [phone] Encounter Details Date Type Department Care Team (Late st Contact Info) Description 04/14/2022 Scanned Document INTERFACE DEFAULT [address] [place] [address] System, Provider Not In Social History Tobacco [...] [facility] 240 [facility] [address] [place] [address] Ronald Mills MD [address] [place] [address] [address] [place] [address] documented as of this encounter Visit Diagnoses Not on filedocumented in this encounter Additional Health Concerns Assessment Noted Time PHQ-9 Depression Total Score: 2 11/07/19 19 2:06 PM EDT documented as of this encounter Care Teams Account Liaison Relationship Specialty Start Date End Date Caitlyn Bowie MD [address] [address] PCP - General Internal Medicine 05/06/21 documented as of this encounter
--- OUTSIDE RECORDS SUMMARY | 2024-11-21 11:36 | XMS_ITS | Encounter Summary ---
Author Organization [facility] and [facility] Address [address] [place] [address] Care Team Providers Care Automatic Trimming Sewer Name Role Phone Caitlyn Bowie MD Primary Care Provider +1- [phone] Encounter Details Date Type Department Care Team (Late st Contact Info) Description 09/09/2015 Scanned Document [facility] Health Information Management [address] [place] [address] External, Provider Social History Tobacco Use Types [...] [facility] 240 [facility] Building [address] [place], [place] [phone] Ronald Mills MD 240 [facility] [address] [place] [address] documented as of this encounter Procedures Procedure Name Priority Date/Time Associated Diagnosis Comments LAB SCAN Routine 09/09/2015 documented in this encounter Results * Lab Scan (09/09/2015) Blood specimen (specimen) us Provider External LAB BLOOD ORDERABLES Final Res ult Performing Organization Address City/State/[facility] Co de Phone Number [facility] documented in this encounter Visit Diagnoses Not on filedocumented in this encounter Additional Health Concerns Infection Onset Date Last Indicated Resolved Time COVID-19 03/05/2022 03/05/2022 03/15/2022 7:18 PM EDT documented as of this encounter Care Teams Automatic Trimming Sewer Relationship Specialty Start Date End Date Caitlyn Bowie MD 3400 [facility] 1 [place] [address] PCP - General Internal Medicine 05/06/21 Henry Kelly MD Pulmonary Department 175 [facility], [address] [place] [address] Physician Pulmonary Disease 09/06/17 06/22/20 documented as of this encounter
--- OUTSIDE RECORDS SUMMARY | 2024-11-21 11:36 | XMS_ITS | Encounter Summary ---
Author Organization [facility] Address [address] [place] [address] Care Team Providers Care Helicopter Dispatcher Name Role Phone Caitlyn Bowie MD Primary Care Provider +1- [phone] Encounter Details Date Type Department Care Team (Late st Contact Info) Description 04/19/2022 Scanned Document INTERFACE DEFAULT [address] [place] [address] System, Provider Not In Social History Tobacco [...] [facility] 240 [facility] Building [address] [place], [place] [phone] Ronald Mills MD [address] [place] [address] [address] [place] [address] documented as of this encounter [...] documented as of this encounter Care Teams Helicopter Dispatcher Relationship Specialty Start Date End Date Caitlyn Bowie MD [address] [address] PCP - General Internal Medicine 05/06/21 documented as of this encounter
--- OUTSIDE RECORDS SUMMARY | 2024-11-21 11:36 | XMS_ITS | Encounter Summary ---
Author Organization [facility] Address [address] [place] [address] Care Team Providers Care Assembly Inspector Name Role Phone Caitlyn Bowie MD Primary Care Provider +1- [phone] Encounter Details Date Type Department Care Team (Late st Contact Info) Description 04/25/2022 Scanned Document INTERFACE DEFAULT [address] [place] [address] System, Provider Not In Social History Tobacco [...] [facility] at [facility] 240 [facility] Building [address] [place] [address] Ronald Mills MD [address] [place] [address] [address] [place] [address] documented as of this encounter Visit Diagnoses Not on filedocumented in this encounter Additional Health Concerns Assessment Noted Time PHQ-9 Depression Total Score: 2 11/07/19 19 2:06 PM EDT documented as of this encounter Care Teams Assembly Inspector Relationship Specialty Start Date End Date Caitlyn Bowie MD [address] [address] PCP - General Internal Medicine 05/06/21 documented as of this encounter
--- OUTSIDE RECORDS SUMMARY | 2024-11-21 11:36 | XMS_ITS | Encounter Summary ---
Author Organization [facility] and [facility] Address [address] [place] [address] Care Team Providers Care Tower Director Name Role Phone Caitlyn Bowie MD Primary Care Provider +1- [phone] Encounter Details Date Type Department Care Team (Late st Contact Info) Description 04/12/2022 Scanned Document INTERFACE DEFAULT [address] [place] [address] System, Provider Not In Social History Tobacco [...] [facility] Building [address] [place] [address] Ronald Mills MD [address] [place] [address] [address] [place] [address] documented as of this encounter [...] as of this encounter Care Teams Tower Director Relationship Specialty Start Date End Date Caitlyn Bowie MD [address] [address] PCP - General Internal Medicine 05/06/21 documented as of this encounter
--- OUTSIDE RECORDS SUMMARY | 2024-11-21 11:36 | XMS_ITS | Encounter Summary ---
Author Organization [facility] Address [address] [place] [address] Care Team Providers Care Dj Instructor Name Role Phone Caitlyn Bowie MD Primary Care Provider +1- [phone] Encounter Details Date Type Department Care Team (Late st Contact Info) Description 09/09/2015 Scanned Document [facility] Health Information Management [address] [place] [address] External, Provider Social History Tobacco Use Types [...] [facility] 240 [facility] Building [address] [place], [place] [phone] Ronald Mills MD 240 [facility] [address] [place] [address] documented as of this encounter Procedures Procedure Name Priority Date/Time Associated Diagnosis Comments LAB SCAN Routine 09/09/2015 documented in this encounter Results * Lab Scan (09/09/2015) Blood specimen (specimen) us Provider External LAB BLOOD ORDERABLES Final Res ult [facility] documented in this encounter Visit Diagnoses Not on filedocumented in this encounter Additional Health Concerns Infection Onset Date Last Indicated Resolved Time COVID-19 03/05/2022 03/05/2022 03/15/2022 7:18 PM EDT documented as of this encounter Care Teams Dj Instructor Relationship Specialty Start Date End Date Caitlyn Bowie MD 3400 [facility] 1 [place] [address] PCP - General Internal Medicine 05/06/21 Henry Kelly MD Pulmonary Department 175 [facility], [address] [place] [address] Physician Pulmonary Disease 09/06/17 06/22/20 documented as of this encounter
--- OUTSIDE RECORDS SUMMARY | 2024-11-21 11:36 | XMS_ITS | Encounter Summary ---
Author Organization [facility] Address [address] [place] [address] Care Team Providers Care Planimeter Operator Name Role Phone Caitlyn Bowie MD Primary Care Provider +1- [phone] Encounter Details Date Type Department Care Team (Late Contact Info) Description 04/12/2022 Scanned Document [facility] Health Information Management [address] [place] [address] External, Provider Social History Tobacco Use Types [...] [facility] 240 [facility] Building [address] [place], [place] [phone] Ronald Mills MD [address] [place] [address] [address] [place] [address] documented as of this encounter [...] End Date Caitlyn Bowie MD [address] [address] PCP - General Internal Medicine 05/06/21 documented as of this encounter
--- OUTSIDE RECORDS SUMMARY | 2024-11-21 11:36 | XMS_ITS | Encounter Summary ---
Author Organization [facility] and [facility] Address [address] [place] [address] Care Team Providers Care Cigar Wrapper Name Role Phone Caitlyn Bowie MD Primary Care Provider +1- [phone] Encounter Details Date Type Department Care Team (Late st Contact Info) Description 04/13/2022 Scanned Document INTERFACE DEFAULT [address] [place] [address] System, Provider Not In Social History Tobacco [...] [facility] 240 [facility] Building [address] [place], [place] [phone] Ronald Mills MD [address] [place] [address] [address] [place] [address] documented as of this encounter [...] as of this encounter Care Teams Cigar Wrapper Relationship Specialty Start Date End Date Caitlyn Bowie MD [address] [address] PCP - General Internal Medicine 05/06/21 documented as of this encounter
--- OUTSIDE RECORDS SUMMARY | 2024-11-21 11:36 | XMS_ITS | Encounter Summary ---
Author Organization [facility] and [facility] Address [address] [place] [address] Care Team Providers Care Jawbone Puller Name Role Phone Caitlyn Bowie MD Primary Care Provider +1- [phone] Encounter Details Date Type Department Care Team (Late st Contact Info) Description 04/13/2023 Scanned Document INTERFACE DEFAULT [address] [place] [address] System, Provider Not In Social History Tobacco [...] at [facility] 240 [facility] Building [address] [place] [address] Ronald Mills MD [address] [place] [address] [address] [place] [address] documented as of this encounter [...] documented as of this encounter Care Teams Jawbone Puller Relationship Specialty Start Date End Date Caitlyn Bowie MD [address] [address] PCP - General Internal Medicine 05/06/21 documented as of this encounter
--- OUTSIDE RECORDS SUMMARY | 2024-11-21 11:36 | XMS_ITS | Encounter Summary ---
Author Organization [facility] Address [address] [place] [address] Care Team Providers Care Teacher Resource Name Role Phone Caitlyn Bowie MD Primary Care Provider +1- [phone] Encounter Details Date Type Department Care Team (Latest Contact Info) Description 12/25/2015 Transcribed Orders [facility] Draw Station [address] [facility] [place] [address] Osmel Briscoe MD Other abnormality of red [...] PM EDT Telemedicine Cancer [facility] at [address] [place], [place] [id number] Ronald Mills MD [address] [place] [address] [address] [place] [address] documented as of this encounter Results * Free kappa lambda with ratio, serum ( GH Q YH) (12/25/2015 10:09 AM EDT) Ig [place] Free Light Chain 1.84 0.33 - 1.94 mg/dL [facility] Ig Lambda Free Light Chain 1.96 0.57 - 2.63 mg/dL [facility] [place]/Lambda FLC Ratio 0.94 0.26 - 1.65 [facility] Blood specimen (specimen) 12/25/2015 10:09 AM EDT Result [facility] Osmel Briscoe MD LAB BLOOD ORDERABLES Final R esult Performing Organization Address [facility] Co de Phone Number [facility] [address] [place] [address] * Immunofixation, serum ( L Q YH) (12/25/2015 10:09 AM EDT) [facility] Immunofixation Electrophoresis Gel See below See Interp. [facility] Comment: INTERPRETATION: Normal immunofixation electrophoresis. No evidence of a serum monoclonal component. SIGNED BY:Keyur KAYE MD ON 12/29/2015 14:56:04 INTERPRETATION REVIEW : I have reviewed these results and agree with this interpretation. Blood specimen (specimen) 12/25/2015 10:09 AM EDT Osmel Briscoe MD LAB BLOOD ORDERABLES Final R esult Performing Organization Address [facility] Co de Phone Number [facility] [address] [place] [phone] * (ABNORMAL) Protein electrophoresis, serum ( GH L YH) (12/25/2015 10:09 AM EDT) Albumin Electrophoresis 3.45(L) 3.50 - 4.70 g/dL [facility] Zxack-0-Auowjlgy 0.16 0.10 - 0.30 g/dL [facility] Vxlvu-6-Pdurhqkq 0.81 0.60 - 1.00 g/dL [facility] Beta Globulin 0.86 0.70 - 1.20 g/dL [facility] Gamma Globulin 0.92 0.70 - 1.50 g/dL [facility] SPEP Interpretation See below See Interp. [facility] Comment: INTERPRETATION: No discrete abnormal [...] Final R esult Performing Organization Address [facility] Co de Phone Number [facility] [address] [place] [address] * Reticulocytes (GH L Q YH) (12/25/2015 10:09 AM EDT) Reticulocyte Count 2.1 0.6 - 2.7 % [facility] Blood specimen (specimen) 12/25/2015 10:09 AM EDT Osmel Briscoe MD LAB BLOOD ORDERABLES Final R esult Performing Organization Address [facility] Co de Phone Number [facility] [address] [place] [address] * (ABNORMAL) Sedimentation rate (ESR) (12/25/2015 10:09 AM EDT) Sed Rate 27(H) 0 - 20 mm/hr [facility] Blood specimen (specimen) 12/25/2015 10:09 AM EDT us Osmel Briscoe MD LAB BLOOD ORDERABLES Final R esult Performing Organization Address [facility] Co de Phone Number [facility] [address] [place] [address] * Ferritin (12/25/2015 10:09 AM EDT) Ferritin 68 9 - 120 ng/mL [facility] Blood specimen (specimen) 12/25/2015 10:09 AM EDT Osmel Briscoe MD LAB BLOOD ORDERABLES Final R esult Performing Organization Address [facility] Co de Phone Number [facility] [address] [place] [address] * Iron and TIBC (12/25/2015 10:09 AM EDT) Iron 110 50 - 170 ug/dL [facility] TIBC 290 250 - 450 ug/dL [facility] Iron Saturation 38 15 - 50 [facility] Blood specimen (specimen) 12/25/2015 10:09 AM EDT Osmel Briscoe MD LAB BLOOD ORDERABLES Final R esult Performing Organization Address [facility] Co de Phone Number [facility] [address] [place] [address] * Vitamin D 25 hydroxy (BH L YH) (12/25/2015 10:09 AM EDT) Vit D, 25-Hydroxy 43 20 - 50 ng/mL [facility] Comment: A serum 25(OH) vitamin [...] ORDERABLES Final R esult Performing Organization Address City/[facility]/ZIP Co de Phone Number [facility] [address] [place] [address] * TSH (BH L YH) (12/25/2015 10:09 AM EDT) TSH cancelled 0.3 - 4.2 uU/mL [facility] TSH 1.62 0.3 - 4.2 uU/mL [facility] Comment:This test is a third generation TSH assay. Blood specimen (specimen) 12/25/2015 10:09 AM EDT Osmel Briscoe MD LAB BLOOD ORDERABLES Final R esult Performing Organization Address City/[facility] Co de Phone Number [facility] [address] [place] [phone] * (ABNORMAL) CBC and differential (12/25/2015 10:09 AM EDT) Pathologist [facility] CBC with Differential See Below [facility] WBC 9.9 4.0 - 10.0 x 1000/uL [facility] RBC 4.0 3.8 - 5.2 M/uL [facility] Hemoglobin 13.4 12.0 - 16.0 g/dL [facility] Hematocrit 41.0 37.0 - 47.0 % [facility] MCV 101(H) 78 - 94 fL [facility] MCH 33.2(H) 27.0 - 33.0 pg [facility] MCHC 32.8(L) 33.0 - 37.0 g/dL [facility] RDW 12.5 10.8 - 14.5 % [facility] Platelets 265 150 - 350 x 1000/uL [facility] MPV 7.2 6.0 - 10.0 fL [facility] Neutrophils 82(H) 38 - 71 % [facility] Lymphocytes 7(L) 14 - 46 % [facility] Monocytes 10 2 - 15 % [facility] Eosinophils 1 0 - 5 % [facility] Basophils 0 0 - 2 % [facility] ANC (Abs Neutrophil Count) 8.1 1.0 - 9.0 x 1000/uL [facility] Absolute Lymphocyte Count 0.7 0.6 - 4.6 x 1000/uL [facility] Blood specimen (specimen) ARM NEC / Unknown 12/25/2015 10:09 AM EDT us Osmel Briscoe MD LAB BLOOD ORDERABLES Final R esult [facility] [address] [place] [address] documented in this encounter Visit Diagnoses Diagnosis [...] as of this encounter Care Teams Teacher Resource Relationship Specialty Start Date End Date Caitlyn Bowie MD [address] [address] PCP - General Internal Medicine 05/06/21 Henry Kelly MD Pulmonary Department 175 [facility], [address] [place] [address] Physician Pulmonary Disease 09/06/17 06/22/20 documented as of this encounter
--- OUTSIDE RECORDS SUMMARY | 2024-11-21 11:36 | XMS_ITS | Encounter Summary ---
Author Organization [facility] Address [address] [place] [address] Care Team Providers Care Hair Clipper Power Name Role Phone Caitlyn Bowie MD Primary Care Provider +1- [phone] Encounter Details Date Type Department Care Team (Late st Contact Info) Description 08/28/2015 Scanned Document [facility] Health Information Management [address] [place] [address] External, Provider Social History Tobacco Use Types [...] Center at [facility] [address] [facility] [address] [place], [place] [id number] Ronald Mills MD [address] [facility] [address] [place] [address] documented as of this encounter Visit Diagnoses Not on filedocumented in this encounter Additional Health Concerns Infection Onset Date Last Indicated Resolved Time COVID-19 03/05/2022 03/05/2022 03/15/2022 7:18 PM EDT documented as of this encounter Care Teams Hair Clipper Power Relationship Specialty Start Date End Date Caitlyn Bowie MD 3400 [facility] 1 [place] [address] PCP - General Internal Medicine 05/06/21 Henry Kelly MD Pulmonary Department 175 [facility], [address] [place] [address] Physician Pulmonary Disease 09/06/17 06/22/20 documented as of this encounter
--- OUTSIDE RECORDS SUMMARY | 2024-11-21 11:36 | XMS_ITS | Encounter Summary ---
Author Organization [facility] Address [address] [place] [address] Care Team Providers Care Steam Fitter Supervisor Maintenance Name Role Phone Caitlyn Bowie MD Primary Care Provider +1- [phone] Encounter Details Date Type Department Care Team (Late st Contact Info) Description 05/17/2023 Scanned Document INTERFACE DEFAULT [address] [place] [address] System, Provider Not In Social History Tobacco [...] at [facility] [address] [facility] [address] [place], [place] [phone] Ronald Mills MD [address] [place] [address] [address] [place] [address] documented as of this encounter [...] this encounter Care Teams Steam Fitter Supervisor Maintenance Relationship Specialty Start Date End Date Caitlyn Bowie MD [address] [address] PCP - General Internal Medicine 05/06/21 documented as of this encounter
--- OUTSIDE RECORDS SUMMARY | 2024-11-21 11:36 | XMS_ITS | Encounter Summary ---
Author Organization [facility] and [facility] Address [address] [place] [address] Care Team Providers Care Ritual Circumciser Name Role Phone Caitlyn Bowie MD Primary Care Provider +1- [phone] Encounter Details Date Type Department Care Team (Late st Contact Info) Description 12/04/2018 Scanned Document [facility] Health Information Management [address] [place] [address] External, Provider Social History Tobacco Use Types [...] [facility] 240 [facility] Building [address] [place], [place] [phone] Ronald Mills MD [address] [place] [address] [address] [place] [address] documented as of this encounter Visit Diagnoses Not on filedocumented in this encounter Additional Health Concerns Infection Onset Date Last Indicated Resolved Time COVID-19 03/05/2022 03/05/2022 03/15/2022 7:18 PM EDT Assessment Noted Time PHQ-9 Depression Total Score: 2 11/07/19 19 2:06 PM EDT documented as of this encounter Care Teams Ritual Circumciser Relationship Specialty Start Date End Date Caitlyn Bowie MD 34[address] [facility] [address] 1 [place] [address] PCP - General Internal Medicine 05/06/21 Henry Kelly MD Pulmonary Department 175 [facility], [address] [place] [address] Physician Pulmonary Disease 09/06/17 06/22/20 documented as of this encounter
--- OUTSIDE RECORDS SUMMARY | 2024-11-21 11:36 | XMS_ITS | Encounter Summary ---
Author Organization [facility] and [facility] Address [address] [place] [address] Care Team Providers Care Photography Colorist Name Role Phone Caitlyn Bowie MD Primary Care Provider +1- [phone] Encounter Details Date Type Department Care Team (Late st Contact Info) Description 12/06/2018 Scanned Document [facility] Health Information Management [address] [place] [address] External, Provider Social History Tobacco Use Types [...] Telemedicine Cancer Center at [facility] 240 [facility] Building [address] [place], [place] [phone] Ronald Mills MD [address] [place] [address] [address] [place] [address] documented as of this encounter [...] documented as of this encounter Care Teams Photography Colorist Relationship Specialty Start Date End Date Caitlyn Bowie MD 3400 [facility] 1 [place] [address] PCP - General Internal Medicine 05/06/21 Henry Kelly MD Pulmonary Department 175 [facility], [address] [place] [address] Physician Pulmonary Disease 09/06/17 06/22/20 documented as of this encounter
--- OUTSIDE RECORDS SUMMARY | 2024-11-21 11:36 | XMS_ITS | Encounter Summary ---
Author Organization [facility] and [facility] Address [address] [place] [address] Care Team Providers Care Real Property Evaluator Name Role Phone Caitlyn Bowie MD Primary Care Provider +1- [phone] Encounter Details Date Type Department Care Team (Late st Contact Info) Description 05/04/2022 Scanned Document INTERFACE DEFAULT [address] [place] [address] System, Provider Not In Social History Tobacco [...] [facility] Center at [facility] 240 [facility] [address] [place] [address] Ronadl Mills MD [address] [place] [address] [address] [place] [address] documented as of this encounter Visit Diagnoses Not on filedocumented in this encounter Additional Health Concerns Assessment Noted Time PHQ-9 Depression Total Score: 2 11/07/19 19 2:06 PM EDT documented as of this encounter Care Teams Real Property Evaluator Relationship Specialty Start Date End Date Caitlyn Bowie MD [address] [address] PCP - General Internal Medicine 05/06/21 documented as of this encounter
--- OUTSIDE RECORDS SUMMARY | 2024-11-21 11:36 | XMS_ITS | Encounter Summary ---
Author Organization [facility] Address [address] [place] [phone] Care Team Providers Care Saw Filer Name Role Phone Caitlyn Bowie MD Primary Care Provider +1- [phone] Encounter Details Date Type Department Care Team (Late st Contact Info) Description 09/09/2015 Scanned Document [facility] Health Information Management [address] [place] [address] External, Provider Social History Tobacco Use Types [...] at [facility] 240 [facility] Building [address] [place], [place] [phone] Ronald Mills MD 240 [facility] [address] [place] [address] documented as of this encounter Procedures Procedure Name Priority Date/Time Associated Diagnosis Comments LAB SCAN Routine 09/09/2015 documented in this encounter Results * Lab Scan (09/09/2015) Blood specimen (specimen) us Provider External LAB BLOOD ORDERABLES Final Res ult [facility] documented in this encounter Visit Diagnoses Not on filedocumented in this encounter Additional Health Concerns Infection Onset Date Last Indicated Resolved Time COVID-19 03/05/2022 03/05/2022 03/15/2022 7:18 PM EDT documented as of this encounter Care Teams Saw Filer Relationship Specialty Start Date End Date Caitlyn Bowie MD 3400 [facility] 1 [place] [address] PCP - General Internal Medicine 05/06/21 Henry Kelly MD Pulmonary Department 175 [facility], [address] [place] [address] Physician Pulmonary Disease 09/06/17 06/22/20 documented as of this encounter
--- OUTSIDE RECORDS SUMMARY | 2024-11-21 11:36 | XMS_ITS | Encounter Summary ---
Author Organization [facility] and [facility] Address [address] [place] [address] Care Team Providers Care Supervisor Extruding Department Name Role Phone Caitlyn Bowie MD Primary Care Provider +1- [phone] Encounter Details Date Type Department Care Team (Late st Contact Info) Description 10/23/2018 Scanned Document [facility] Health Information Management [address] [place] [address] External, Provider Social History Tobacco Use Types [...] [facility] [address] [facility] Building [address] [place], [place] [phone] Ronald Mills MD [address] [place] [address] [address] [place] [address] documented as of this encounter Visit Diagnoses Not on filedocumented in this encounter Additional Health Concerns Infection Onset Date Last Indicated Resolved Time COVID-19 03/05/2022 03/05/2022 03/15/2022 7:18 PM EDT documented as of this encounter Care Teams Supervisor Extruding Department Relationship Specialty Start Date End Date Caitlyn Bowie MD 3400 [facility] 1 [place] [address] PCP - General Internal Medicine 05/06/21 Henry Kelly MD Pulmonary Department 175 [facility], [address] [place] [address] Physician Pulmonary Disease 09/06/17 06/22/20 documented as of this encounter
--- OUTSIDE RECORDS SUMMARY | 2024-11-21 11:37 | XMS_ITS | Encounter Summary ---
Author Organization [facility] and [facility] Address [address] [place] [address] Care Team Providers Care Reed Cleaner Name Role Phone Caitlyn Bowie MD Primary Care Provider +1- [phone] Encounter Details Date Type Department Care Team (Late st Contact Info) Description 01/13/2019 Scanned Document [facility] Health Information Management [address] [place] [address] External, Provider Social History Tobacco Use Types [...] [facility] 240 [facility] Building [address] [place] [address] Ronald Mills MD [address] [place] [address] [address] [place] [address] documented as of this encounter [...] as of this encounter Care Teams Reed Cleaner Relationship Specialty Start Date End Date Caitlyn Bowie MD 3400 [facility] 1 [place] [address] PCP - General Internal Medicine 05/06/21 Henry Kelly MD Pulmonary Department 175 [facility], [address] [place] [address] Physician Pulmonary Disease 09/06/17 06/22/20 documented as of this encounter
--- OUTSIDE RECORDS SUMMARY | 2024-11-21 11:37 | XMS_ITS | Encounter Summary ---
Author Organization [facility] Address [address] [place] [address] Care Team Providers Care Mat Cutter Name Role Phone Caitlyn Bowie MD Primary Care Provider +1- [phone] Encounter Details Date Type Department Care Team (Late st Contact Info) Description 12/29/2021 Telephone [facility] at [address] - [address] [address] Ronald Mills MD [address] [place] [address] Social History Tobacco Use Types Packs/Day [...] not sure where the blood's coming from. [phone] documented in this encounter Plan of Treatment Upcoming Encounters Date Type Department Care Team (Late st Contact Info) Description 04/25/2025 4:00 PM EDT Telemedicine [facility] 240 [facility] [address] [place] [address] Ronald Mills MD 240 [facility] [address] [place] [address] documented as of this encounter Visit Diagnoses Not on filedocumented in this encounter Additional Health Concerns Infection Onset Date Last Indicated Resolved Time COVID-19 03/05/2022 03/05/2022 03/15/2022 7:18 PM EDT Assessment Noted Time PHQ-9 Depression Total Score: 2 11/07/19 19 2:06 PM EDT documented as of this encounter Care Teams Mat Cutter Relationship Specialty Start Date End Date Caitlyn Bowie MD [address] [address] PCP - General Internal Medicine 05/06/21 documented as of this encounter
--- OUTSIDE RECORDS SUMMARY | 2024-11-21 11:37 | XMS_ITS | Encounter Summary ---
Author Organization [facility] and [facility] Address [address] [place] [address] Care Team Providers Care Stamp Classifier Name Role Phone Caitlyn Bowie MD Primary Care Provider +1- [phone] Encounter Details Date Type Department Care Team (Late st Contact Info) Description 04/11/2019 Scanned Document [facility] Health Information Management [address] [place] [address] External, Provider Social History Tobacco Use Types [...] [facility] 240 [facility] [address] [place] [address] Ronald Mills MD [address] [place] [address] [address] [place] [address] documented as of this encounter [...] documented as of this encounter Care Teams Stamp Classifier Relationship Specialty Start Date End Date Caitlyn Bowie MD 3400 [facility] 1 [place] [address] PCP - General Internal Medicine 05/06/21 Henry Kelly MD Pulmonary Department 175 [facility], [address] [place] [address] Physician Pulmonary Disease 09/06/17 06/22/20 documented as of this encounter
--- OUTSIDE RECORDS SUMMARY | 2024-11-21 11:37 | XMS_ITS | Clinical Summary ---
Author Organization [facility] Address [address] [place] [address] Phone Care Team Providers Care Coke Still Cleaner Name Role Phone Caitlyn Bowie MD Primary Care Provider +1- [phone] Encounters Date Type Department Care Team Description 10/10/2024 Documentation Only [facility] [address] [place] [address] Ron Taylor MA 10/01/2024 Documentation Only [facility] [address] [place] [address] Ron Taylor MA 09/25/2024 Telephone [facility] [address] [place] [address] Ron Taylor MA from Last [...] Visit [facility] [address] [place] [place] [address] Rubén Ashraf MD [address] [place] [address] [place] [phone] Health Maintenance Due Date Last Done Comments Influenza Vaccine (Season Ended) 2025 04/27/2020, 04/22/2019, 04/18/2016 Pneumococcal Vaccine: 50+ Years Completed 08/31/2021, 03/25/2016, 09/17/2015, Additional history exists Hepatitis B Vaccine Aged Out No longe r eligible based on patient's age to complete this topic Insurance Medicare [facility] Care Teams Coke Still Cleaner Relationship Specialty Start Date End Date Caitlyn Bowie MD [facility] [place], [place] PCP - General Internal Medicine 09/24/24
--- OUTSIDE RECORDS SUMMARY | 2024-11-21 11:37 | XMS_ITS | Encounter Summary ---
Author Organization [facility] Address [address] [place] [address] Care Team Providers Care Enamel Dipper Name Role Phone Caitlyn Bowie MD Primary Care Provider +1- [phone] Encounter Details Date Type Department Care Team (Late st Contact Info) Description 04/22/2019 Scanned Document [facility] Health Information Management [address] [place] [address] External, Provider Social History Tobacco Use Types [...] [facility] 240 [facility] [address] [place] [address] Ronald Mills MD [address] [place] [address] [address] [place] [address] documented as of this encounter Visit Diagnoses Not on filedocumented in this encounter Additional Health Concerns Infection Onset Date Last Indicated Resolved Time COVID-19 03/05/2022 03/05/2022 03/15/2022 7:18 PM EDT Assessment Noted Time PHQ-9 Depression Total Score: 2 11/07/19 19 2:06 PM EDT documented as of this encounter Care Teams Enamel Dipper Relationship Specialty Start Date End Date Caitlyn Bowie MD 3400 [facility] 1 [place] [address] PCP - General Internal Medicine 05/06/21 Henry Kelly MD Pulmonary Department 175 [facility], [address] [place] [address] Physician Pulmonary Disease 09/06/17 06/22/20 documented as of this encounter
--- OUTSIDE RECORDS SUMMARY | 2024-11-21 11:37 | XMS_ITS | Encounter Summary ---
Author Organization [facility] and [facility] Address [address] [place] [address] Care Team Providers Care Churn Drill Operator Name Role Phone Caitlyn Bowie MD Primary Care Provider +1- [phone] Encounter Details Date Type Department Care Team (Late st Contact Info) Description 03/12/2019 Scanned Document [facility] Health Information Management [address] [place] [address] External, Provider Social History Tobacco Use Types [...] [place] [address] [place] [address] Ronald Mills MD [address] [place] [address] [address] [place] [address] documented as of this encounter [...] documented as of this encounter Care Teams Churn Drill Operator Relationship Specialty Start Date End Date Caitlyn Bowie MD 34[address] [facility] 1 [place] [address] PCP - General Internal Medicine 05/06/21 Henry Kelly MD Pulmonary Department 175 [facility], [address] [place] [address] Physician Pulmonary Disease 09/06/17 06/22/20 documented as of this encounter
--- OUTSIDE RECORDS SUMMARY | 2024-11-21 11:37 | XMS_ITS | Encounter Summary ---
Author Organization [facility] and [facility] Address [address] [place] [address] Care Team Providers Care Aluminum Fabrication Supervisor Name Role Phone Caitlyn Bowie MD Primary Care Provider +1- [phone] Encounter Details Date Type Department Care Team (Late st Contact Info) Description 12/27/2018 Scanned Document [facility] Health Information Management [address] [place] [address] External, Provider Social History Tobacco Use Types [...] [facility] Building [address] [place] [address] Ronald Mills MD [address] [place] [address] [address] [place] [address] documented as of this encounter [...] documented as of this encounter Care Teams Aluminum Fabrication Supervisor Relationship Specialty Start Date End Date Caitlyn Bowie MD [address]00 [facility] 1 [place] [address] PCP - General Internal Medicine 05/06/21 Henry Kelly MD Pulmonary Department 175 [facility], [address] [place] [address] Physician Pulmonary Disease 09/06/17 06/22/20 documented as of this encounter
--- OUTSIDE RECORDS SUMMARY | 2024-11-21 11:37 | XMS_ITS | Encounter Summary ---
Author Organization [facility] and [facility] Address [address] [place] [address] Care Team Providers Care Circuits Engineer Name Role Phone Caitlyn Bowie MD Primary Care Provider +1- [phone] Encounter Details Date Type Department Care Team (Late st Contact Info) Description 03/02/2022 Scanned Document [facility] Health Information Management [address] [place] [address] External, Provider Social History Tobacco Use Types [...] [facility] 240 [facility] Building [address] [place], [place] [id number] Ronald Mills MD [address] [place] [address] [address] [place] [address] documented as of this encounter Visit Diagnoses Not on filedocumented in this encounter Additional Health Concerns Infection Onset Date Last Indicated Resolved Time COVID-19 03/05/2022 03/05/2022 03/15/2022 7:18 PM EDT Assessment Noted Time PHQ-9 Depression Total Score: 2 11/07/19 19 2:06 PM EDT documented as of this encounter Care Teams Circuits Engineer Relationship Specialty Start Date End Date Caitlyn Bowie MD [address] [address] PCP - General Internal Medicine 05/06/21 documented as of this encounter
--- OUTSIDE RECORDS SUMMARY | 2024-11-21 11:37 | XMS_ITS | Encounter Summary ---
Author Organization [facility] Address [address] [place] [address] Phone Care Team Providers Care Customs Compliance Specialist Name Role Phone Caitlyn Bowie MD Primary Care Provider +1- [phone] Encounter Details Date Type Department Care Team (Late st Contact Info) Description 10/01/2024 Documentation Only [facility] [address] [place] [address] [place], [place] [address] [place] [address] Social History Tobacco Use Types [...] Visit [facility] [address] [place] [address] Rubén Ashraf MD [address] [place] [address] Dr. [place] [address] documented as of this encounter Visit Diagnoses Not on filedocumented in this encounter Care Teams Customs Compliance Specialist Relationship Specialty Start Date End Date Caitlyn Bowie MD [address] [place], [place] PCP - General Internal Medicine 09/24/24 documented as of this encounter
--- OUTSIDE RECORDS SUMMARY | 2024-11-21 11:37 | XMS_ITS | Encounter Summary ---
Author Organization [facility] Address [address] [place] [address] Care Team Providers Care Road Crossing Guard Name Role Phone Caitlyn Bowie MD Primary Care Provider +1- [phone] Encounter Details Date Type Department Care Team (Late st Contact Info) Description 09/23/2024 Scanned Document INTERFACE DEFAULT [address] [place] [address] System, Provider Not In Social History Tobacco [...] [facility] 240 [facility] Building [address] [place], [place] [id number] Ronald Mills MD [address] [place] [address] [address] [place] [address] documented as of this encounter [...] as of this encounter Care Teams Road Crossing Guard Relationship Specialty Start Date End Date Caitlyn Bowie MD [address] [address] PCP - General Internal Medicine 05/06/21 documented as of this encounter
--- OUTSIDE RECORDS SUMMARY | 2024-11-21 11:37 | XMS_ITS | Encounter Summary ---
Author Organization [facility] and [facility] Address [address] [place] [address] Care Team Providers Care Care Support Representative Name Role Phone Caitlyn Bowie MD Primary Care Provider +1- [phone] Encounter Details Date Type Department Care Team (Late st Contact Info) Description 01/08/2022 Scanned Document INTERFACE DEFAULT [address] [place] [address] System, Provider Not In Social History Tobacco [...] [facility] 240 [facility] Building [address] [place], [place] [phone] Ronald Mills MD [address] [place] [address] [address] [place] [address] documented as of this encounter [...] as of this encounter Care Teams Care Support Representative Relationship Specialty Start Date End Date Caitlyn Bowie MD [address] [address] PCP - General Internal Medicine 05/06/21 documented as of this encounter
--- OUTSIDE RECORDS SUMMARY | 2024-11-21 11:37 | XMS_ITS | Encounter Summary ---
Author Organization [facility] Address [address] [place] [address] Care Team Providers Care Layout Operator Name Role Phone Caitlyn Bowie MD Primary Care Provider +1- [phone] Encounter Details Date Type Department Care Team (Late st Contact Info) Description 01/17/2019 Scanned Document [facility] Health Information Management [address] [place] [address] External, Provider Social History Tobacco Use Types [...] [facility] 240 [facility] Building [address] [place] [address] Ronald Mills MD [address] [place] [address] [address] [place] [address] documented as of this encounter [...] documented as of this encounter Care Teams Layout Operator Relationship Specialty Start Date End Date Caitlyn Bowie MD [address] [facility] 1 [place] [address] PCP - General Internal Medicine 05/06/21 Henry Kelly MD Pulmonary Department 175 [facility], [address] [place] [address] Physician Pulmonary Disease 09/06/17 06/22/20 documented as of this encounter
--- OUTSIDE RECORDS SUMMARY | 2024-11-21 11:37 | XMS_ITS | Encounter Summary ---
Author Organization [facility] Address [address] [place] [address] Care Team Providers Care Pipelines Superintendent Name Role Phone Caitlyn Bowie MD Primary Care Provider +1- [phone] Encounter Details Date Type Department Care Team (Late st Contact Info) Description 08/08/2024 Scanned Document INTERFACE DEFAULT [address] [place] [address] System, Provider Not In Social History Tobacco [...] at [facility] 240 [facility] Building [address] [place], [place] [address] Ronald Mills MD [address] [place] [address] [address]1 [place] [address] documented as of this encounter [...] documented as of this encounter Care Teams Pipelines Superintendent Relationship Specialty Start Date End Date Caitlyn Bowie MD [address] [address] PCP - General Internal Medicine 05/06/21 documented as of this encounter
--- OUTSIDE RECORDS SUMMARY | 2024-11-21 11:37 | XMS_ITS | Encounter Summary ---
Author Organization [facility] Address [address] [place] [address] Care Team Providers Care Market Investigator Name Role Phone Caitlyn Bowie MD Primary Care Provider +1- [phone] Encounter Details Date Type Department Care Team (Late st Contact Info) Description 12/16/2015 Scanned Document [facility] Health Information Management [address] [place] [address] External, Provider Social History Tobacco Use Types [...] at [facility] 240 [facility] Building [address] [place], [place] [phone] Ronald Mills MD 240 [facility] Max [address] [place] [address] documented as of this encounter Procedures Procedure Name Priority Date/Time Associated Diagnosis Comments US RESULT SCAN Routine 12/16/2015 documented in this encounter Results * US Result Scan (12/16/2015) us Provider External IMG SCAN REPORTS Edited Result - Final [facility] [place], [place], [facility] documented in this encounter Visit Diagnoses Not on filedocumented in this encounter Additional Health Concerns Infection Onset Date Last Indicated Resolved Time COVID-19 03/05/2022 03/05/2022 03/15/2022 7:18 PM EDT documented as of this encounter Care Teams Market Investigator Relationship Specialty Start Date End Date Caitlyn Bowie MD 3400 [facility] Max 1 [place] [address] PCP - General Internal Medicine 05/06/21 Henry Kelly MD Pulmonary Department 175 [facility], [address] [place] [address] Physician Pulmonary Disease 09/06/17 06/22/20 documented as of this encounter
--- OUTSIDE RECORDS SUMMARY | 2024-11-21 11:37 | XMS_ITS | Encounter Summary ---
Author Organization [facility] Address [address] [place] [address] Care Team Providers Care Surgical Manager Name Role Phone Caitlyn Bowie MD Primary Care Provider +1- [phone] Encounter Details Date Type Department Care Team (Late st Contact Info) Description 01/28/2019 Scanned Document [facility] Health Information Management [address] [place] [address] External, Provider Social History Tobacco Use Types [...] [facility] 240 [facility] Building [address] [place] [address] Ronald Mills MD [address] [place] [address] [address]1 [place] [address] documented as of this encounter Visit Diagnoses Not on filedocumented in this encounter Additional Health Concerns Infection Onset Date Last Indicated Resolved Time COVID-19 03/05/2022 03/05/2022 03/15/2022 7:18 PM EDT Assessment Noted Time PHQ-9 Depression Total Score: 2 11/07/19 19 2:06 PM EDT documented as of this encounter Care Teams Surgical Manager Relationship Specialty Start Date End Date Caitlyn Bowie MD 3400 [facility] 1 [place] [address] PCP - General Internal Medicine 05/06/21 Henry Kelly MD Pulmonary Department 175 [facility], [address] [place] [address] Physician Pulmonary Disease 09/06/17 06/22/20 documented as of this encounter
--- OUTSIDE RECORDS SUMMARY | 2024-11-21 11:37 | XMS_ITS | Encounter Summary ---
Author Organization [facility] Address [address] [place] [address] Care Team Providers Care Political Research Scientist Name Role Phone Caitlyn Bowie MD Primary Care Provider +1- [phone] Encounter Details Date Type Department Care Team (Late st Contact Info) Description 09/15/2024 Scanned Document INTERFACE DEFAULT [address] [place] [address] System, Provider Not In Social History Tobacco [...] [facility] 240 [facility] Building [address] [place], [place] [phone] Ronald Mills MD [address] [place] [address] [address] [place] [address] documented as of this encounter [...] as of this encounter Care Teams Political Research Scientist Relationship Specialty Start Date End Date Caitlyn Bowie MD [address] [address] PCP - General Internal Medicine 05/06/21 documented as of this encounter
--- OUTSIDE RECORDS SUMMARY | 2024-11-21 11:37 | XMS_ITS | Encounter Summary ---
Author Organization [facility] Address [address] [place] [address] Care Team Providers Care Hand Cloth Examiner Name Role Phone Caitlyn Bowie MD Primary Care Provider +1- [phone] Encounter Details Date Type Department Care Team (Late st Contact Info) Description 01/09/2019 Scanned Document [facility] Health Information Management [address] [place] [address] External, Provider Social History Tobacco Use Types [...] [facility] 240 [facility] Building [address] [place] [address] Ronald Mills MD [address] [place] [address] [address] [place] [address] documented as of this encounter [...] as of this encounter Care Teams Hand Cloth Examiner Relationship Specialty Start Date End Date Caitlyn Bowie MD 3400 [facility] 1 [place] [address] PCP - General Internal Medicine 05/06/21 Henry Kelly MD Pulmonary Department 175 [facility], [address] [place] [address] Physician Pulmonary Disease 09/06/17 06/22/20 documented as of this encounter
--- OUTSIDE RECORDS SUMMARY | 2024-11-21 11:37 | XMS_ITS | Encounter Summary ---
Author Organization [facility] Address [address] [place] [address] Care Team Providers Care Truck Hop Name Role Phone Caitlyn Bowie MD Primary Care Provider +1- [phone] Encounter Details Date Type Department Care Team (Late st Contact Info) Description 01/02/2019 Scanned Document [facility] Health Information Management [address] [place] [address] External, Provider Social History Tobacco Use Types [...] – [facility] 240 [facility] Building [address] [place] [address] Ronald Mills MD [address] [place] [address] [address] [place] [address] documented as of this encounter [...] as of this encounter Care Teams Truck Hop Relationship Specialty Start Date End Date Caitlyn Bowie MD 3400 [facility] 1 [place] [address] PCP - General Internal Medicine 05/06/21 Henry Kelly MD Pulmonary Department 175 [facility], [address] [place] [address] Physician Pulmonary Disease 09/06/17 06/22/20 documented as of this encounter
--- OUTSIDE RECORDS SUMMARY | 2024-11-21 11:37 | XMS_ITS | Encounter Summary ---
Author Organization [facility] and [facility] Address [address] [place] [address] Care Team Providers Care Technical Translator Name Role Phone Caitlyn Bowie MD Primary Care Provider +1- [phone] Encounter Details Date Type Department Care Team (Late st Contact Info) Description 11/04/2015 Scanned Document [facility] Health Information Management [address] [place] [address] External, Provider Social History Tobacco Use Types [...] [facility] 240 [facility] Building [address] [place], [place] [phone] Ronald Mills MD 240 [facility] [address] [place] [address] documented as of this encounter Procedures Procedure Name Priority Date/Time Associated Diagnosis Comments NUC MED/PET RESULT SCAN Routine 11/04/2015 documented in this encounter Results * Nuc Med/PET Result Scan (11/04/2015) us Provider External IMG SCAN REPORTS Edited Result - Final [facility] [place], [place], [facility] documented in this encounter Visit Diagnoses Not on filedocumented in this encounter Additional Health Concerns Infection Onset Date Last Indicated Resolved Time COVID-19 03/05/2022 03/05/2022 03/15/2022 7:18 PM EDT documented as of this encounter Care Teams Technical Translator Relationship Specialty Start Date End Date Caitlyn Bowie MD 3400 [facility] Max 1 [place] [address] PCP - General Internal Medicine 05/06/21 Henry Kelly MD Pulmonary Department 175 [facility], [address] [place] [address] Physician Pulmonary Disease 09/06/17 06/22/20 documented as of this encounter
--- OUTSIDE RECORDS SUMMARY | 2024-11-21 11:37 | XMS_ITS | Encounter Summary ---
Author Organization [facility] Address [address] [place] [address] Care Team Providers Care Senior Technical Business Analyst Name Role Phone Caitlyn Bowie MD Primary Care Provider +1- [phone] Encounter Details Date Type Department Care Team (Late st Contact Info) Description 01/30/2019 Scanned Document [facility] Health Information Management [address] [place] [address] External, Provider Social History Tobacco Use Types [...] [facility] 240 [facility] Building [address] [place] [address] Ronald Mills MD [address] [place] [address] [address] [place] [address] documented as of this encounter [...] of this encounter Care Teams Senior Technical Business Analyst Relationship Specialty Start Date End Date Caitlyn Bowie MD 3400 [facility] 1 [place] [address] PCP - General Internal Medicine 05/06/21 Henry Kelly MD Pulmonary Department 175 [facility], [address] [place] [address] Physician Pulmonary Disease 09/06/17 06/22/20 documented as of this encounter
--- OUTSIDE RECORDS SUMMARY | 2024-11-21 11:37 | XMS_ITS | Encounter Summary ---
Author Organization [facility] Address [address] [place] [address] Care Team Providers Care Barrel Maker Name Role Phone Caitlyn Bowie MD Primary Care Provider +1- [phone] Encounter Details Date Type Department Care Team (Late st Contact Info) Description 02/06/2019 Scanned Document [facility] Health Information Management [address] [place] [address] External, Provider Social History Tobacco Use Types [...] [facility] 240 [facility] Building [address] [place] [address] Ronald Mills MD [address] [place] [address] [address] [place] [address] documented as of this encounter [...] as of this encounter Care Teams Barrel Maker Relationship Specialty Start Date End Date Caitlyn Bowie MD 3400 [facility] 1 [place] [address] PCP - General Internal Medicine 05/06/21 Henry Kelly MD Pulmonary Department 175 [facility], [address] [place] [address] Physician Pulmonary Disease 09/06/17 06/22/20 documented as of this encounter
--- OUTSIDE RECORDS SUMMARY | 2024-11-21 11:37 | XMS_ITS | Encounter Summary ---
Author Organization [facility] Address [address] [place] [address] Care Team Providers Care District Sales Representative Name Role Phone Caitlyn Bowie MD Primary Care Provider +1- [phone] Encounter Details Date Type Department Care Team (Late st Contact Info) Description 12/01/2015 Scanned Document [facility] Health Information Management [address] [place] [address] External, Provider Social History Tobacco Use Types [...] [facility] 240 [facility] Building [address] [place], [place] [id number] Ronald Mills MD 240 [facility] Max [address] [place] [address] documented as of this encounter Procedures Procedure Name Priority Date/Time Associated Diagnosis Comments CT RESULT SCAN Routine 12/01/2015 documented in this encounter Results * CT Result Scan (12/01/2015) us Provider External IMG SCAN REPORTS Edited Result - Final [facility] [place], [place], [facility] documented in this encounter Visit Diagnoses Not on filedocumented in this encounter Additional Health Concerns Infection Onset Date Last Indicated Resolved Time COVID-19 03/05/2022 03/05/2022 03/15/2022 7:18 PM EDT documented as of this encounter Care Teams District Sales Representative Relationship Specialty Start Date End Date Caitlyn Bowie MD 3400 [facility] Max 1 [place] [address] PCP - General Internal Medicine 05/06/21 Henry Kelly MD Pulmonary Department 175 [facility], [address] [place] [address] Physician Pulmonary Disease 09/06/17 06/22/20 documented as of this encounter
--- OUTSIDE RECORDS SUMMARY | 2024-11-21 11:37 | XMS_ITS | Encounter Summary ---
Author Organization [facility] and [facility] Address [address] [place] [address] Care Team Providers Care Salvage Laborer Name Role Phone Caitlyn [place] MD Primary Care Provider +1- [phone] Encounter Details Date Type Department Care Team (Late st Contact Info) Description 02/08/2016 Scanned Document [facility] Health Information Management [address] [place] [address] External, Provider Social History Tobacco Use Types [...] [facility] Building [address] [place], [place] [id number] Ronald Mills MD 240 [facility] [address] [place] [address] documented as of this encounter Visit Diagnoses Not on filedocumented in this encounter Additional Health Concerns Infection Onset Date Last Indicated Resolved Time COVID-19 03/05/2022 03/05/2022 03/15/2022 7:18 PM EDT documented as of this encounter Care Teams Salvage Laborer Relationship Specialty Start Date End Date Caitlyn [place]ie MD 3400 [facility] 1 [place] [address] PCP - General Internal Medicine 05/06/21 Henry Kelly MD Pulmonary Department 175 [facility], [address] [place] [address] Physician Pulmonary Disease 09/06/17 06/22/20 documented as of this encounter
--- OUTSIDE RECORDS SUMMARY | 2024-11-21 11:37 | XMS_ITS | Encounter Summary ---
Author Organization [facility] Address [address] [place] [address] Care Team Providers Care Complex Commercial Litigation Paralegal Name Role Phone Pcp, No Primary Care Provider Brennan Mario MD Primary Care Provider [phone] Caitlyn [place]ie MD Primary Care Provider [phone]- [phone] Encounter Details Date Type Department Care Team (Late st Contact Info) Description 01/04/2022 Scanned Document [facility] Neurology Ophthalmology [address] [address] Yary Whitten DO [address] [place] [address] Social History Tobacco Use Types Packs/Day [...] on filedocumented in this encounter Care Teams Complex Commercial Litigation Paralegal Relationship Specialty Start Date End Date Pcp, No PCP - General General Medicine 10/04/21 07/18/22 Brennan Burnett MD [address] [place] [address] PCP - General 07/19/22 03/19/23 Caitlyn [place]ie MD 3400 [place] [address] PCP - General Internal Medicine 03/20/23 documented as of this encounter
--- OUTSIDE RECORDS SUMMARY | 2024-11-21 11:37 | XMS_ITS | Clinical Summary ---
Author Organization [facility] Address [address] [place] [address] Care Team Providers Care Heat Sealing Machine Operator Name Role Phone Caitlyn Bowie Primary Care Provider [phone] Allergies Active Allergy Reactions Criticality Noted Date [...] Throat tightness Throat tightness Throat tightness Ipratropium [place] Unknown Medium 12/18/2021 Isosorbide Mononitrate 11/23/2020 Other [...] topic Insurance MEDICARE PART A & B [facility] Care Teams Heat Sealing Machine Operator Relationship Specialty Start Date End Date Caitlyn Bowie [address] [place] [address] PCP - General Internal Medicine 07/18/22
--- OUTSIDE RECORDS SUMMARY | 2024-11-21 11:37 | XMS_ITS | Encounter Summary ---
Author Organization [facility] and [facility] Address [address] [place] [address] Care Team Providers Care Psychic Reader Name Role Phone Caitlyn [place]ie MD Primary Care Provider [phone]- [phone] Encounter Details Date Type Department Care Team (Late st Contact Info) Description 01/28/2019 Scanned Document Cardiovascular Medicine at [address] [place] [address] Cristian Arreguin MBBS [address] [place] [address] Social History Tobacco Use Types [...] 4:00 PM EDT Telemedicine Cancer Center at [address] [place] [address] Ronald Mills MD [address] [place] [address] [address] [place] [address] documented as of this encounter Visit Diagnoses Not on filedocumented in this encounter Additional Health Concerns Infection Onset Date Last Indicated Resolved Time COVID-19 03/05/2022 03/05/2022 03/15/2022 7:18 PM EDT Assessment Noted Time PHQ-9 Depression Total Score: 2 11/07/19 19 2:06 PM EDT documented as of this encounter Care Teams Psychic Reader Relationship Specialty Start Date End Date Caitlyn [place]ie MD 3400 [facility] 1 [place] [address] PCP - General Internal Medicine 05/06/21 Henry Kelly MD Pulmonary Department [address] [place] [address], [address] [place] [address] Physician Pulmonary Disease 09/06/17 06/22/20 documented as of this encounter
--- OUTSIDE RECORDS SUMMARY | 2024-11-21 11:37 | XMS_ITS | Encounter Summary ---
Author Organization [facility] Address [address] [place] [address] Care Team Providers Care Dog Control Officer Name Role Phone Caitlyn [place]ie MD Primary Care Provider +1- [phone] Encounter Details Date Type Department Care Team (Late st Contact Info) Description 03/20/2023 Scanned Document [facility] Radiology [address] [place] [address] Caitlyn [place]ie MD [address] [place] [address] Social History Tobacco Use Types Packs/Day Years [...] on filedocumented in this encounter Care Teams Dog Control Officer Relationship Specialty Start Date End Date Caitlyn [place]ie MD [address] [place] [address] PCP - General Internal Medicine 03/20/23 documented as of this encounter
--- OUTSIDE RECORDS SUMMARY | 2024-11-21 11:37 | XMS_ITS | Encounter Summary ---
Author Organization [facility] Address [address] [place] [address] Care Team Providers Care Body And Fender Mechanic Apprentice Name Role Phone Caitlyn [place]ie MD Primary Care Provider +1- [phone] Encounter Details Date Type Department Care Team (Late st Contact Info) Description 12/28/2018 Scanned Document [facility] Health Information Management [address] [place] [address] External, Provider Social History Tobacco Use Types [...] Cancer Center at [facility] 240 [facility] Building [address] [place] [address] Ronald Mills MD [address] [place] [address] [address] [place] [address] documented as of this encounter [...] as of this encounter Care Teams Body And Fender Mechanic Apprentice Relationship Specialty Start Date End Date Caitlyn [place]ie MD 3400 [facility] Max 1 [place] [address] PCP - General Internal Medicine 05/06/21 Henry Kelly MD Pulmonary Department 175 [facility], [address] [place] [address] Physician Pulmonary Disease 09/06/17 06/22/20 documented as of this encounter
--- OUTSIDE RECORDS SUMMARY | 2024-11-21 11:37 | XMS_ITS | Encounter Summary ---
Author Organization [facility] and [facility] Address [address] [place] [address] Care Team Providers Care Instrument Maker Name Role Phone Caitlyn [place]ie MD Primary Care Provider +1- [phone] Encounter Details Date Type Department Care Team (Late st Contact Info) Description 11/03/2015 Scanned Document [facility] Health Information Management [address] [place] [address] External, Provider Social History Tobacco Use Types [...] [facility] 240 [facility] Building [address] [place], [place] [phone] Ronald Mills MD 240 [facility] [address] [place] [address] documented as of this encounter Procedures Procedure Name Priority Date/Time Associated Diagnosis Comments US RESULT SCAN Routine 11/03/2015 documented in this encounter Results * US Result Scan (11/03/2015) us Provider External IMG SCAN REPORTS Edited Result - Final [facility] [place], [place], [facility] documented in this encounter Visit Diagnoses Not on filedocumented in this encounter Additional Health Concerns Infection Onset Date Last Indicated Resolved Time COVID-19 03/05/2022 03/05/2022 03/15/2022 7:18 PM EDT documented as of this encounter Care Teams Instrument Maker Relationship Specialty Start Date End Date Caitlyn [place]ie MD 3400 [facility] Max 1 [place] [address] PCP - General Internal Medicine 05/06/21 Henry Kelly MD Pulmonary Department 175 [facility], [address] [place] [address] Physician Pulmonary Disease 09/06/17 06/22/20 documented as of this encounter
--- OUTSIDE RECORDS SUMMARY | 2024-11-21 11:37 | XMS_ITS | Encounter Summary ---
Author Organization [facility] and [facility] Address [address] [place] [address] Care Team Providers Care Team Leader Surgery Name Role Phone Caitlyn Bowie MD Primary Care Provider +1- [phone] Encounter Details Date Type Department Care Team (Late st Contact Info) Description 01/26/2019 Scanned Document [facility] Health Information Management [address] [place] [address] External, Provider Social History Tobacco Use Types [...] Cancer Center at [facility] 240 [facility] [address] [place] [address] Ronald Mills MD [address] [place] [address] [address] [place] [address] documented as of this encounter [...] MD 3400 [facility] 1 [place] [address] PCP - General Internal Medicine 05/06/21 Henry Kelly MD Pulmonary Department 175 [facility], [address] [place] [address] Physician Pulmonary Disease 09/06/17 06/22/20 documented as of this encounter
--- OUTSIDE RECORDS SUMMARY | 2024-11-21 11:37 | XMS_ITS | Encounter Summary ---
Author Organization [facility] and [facility] Address [address] [place] [address] Care Team Providers Care Project Geologist Name Role Phone Caitlyn [place]ie MD Primary Care Provider +1- [phone] Encounter Details Date Type Department Care Team (Late st Contact Info) Description 12/03/2015 Scanned Document [facility] Health Information Management [address] [place] [address] External, Provider Social History Tobacco Use Types [...] [facility] 240 [facility] Building [address] [place], [place] [phone] Ronald Mills MD 240 [facility] Max [address]1 [place] [address] documented as of this encounter Procedures Procedure Name Priority Date/Time Associated Diagnosis Comments LAB SCAN Routine 12/03/2015 documented in this encounter Results * Lab Scan (12/03/2015) Blood specimen (specimen) us Provider External LAB BLOOD ORDERABLES Edited Re sult - Final [facility] documented in this encounter Visit Diagnoses Not on filedocumented in this encounter Additional Health Concerns Infection Onset Date Last Indicated Resolved Time COVID-19 03/05/2022 03/05/2022 03/15/2022 7:18 PM EDT documented as of this encounter Care Teams Project Geologist Relationship Specialty Start Date End Date Caitlyn [place]ie MD 3400 [facility] 1 [place] [address] PCP - General Internal Medicine 05/06/21 Henry Kelly MD Pulmonary Department 175 [facility], [address] [place] [address] Physician Pulmonary Disease 09/06/17 06/22/20 documented as of this encounter
--- OUTSIDE RECORDS SUMMARY | 2024-11-21 11:37 | XMS_ITS | Encounter Summary ---
Author Organization [facility] and [facility] Address [address] [place] [address] Care Team Providers Care Pricing Clerk Name Role Phone Caitlyn [place] MD Primary Care Provider +1- [phone] Reason for Visit * Reason Comments Results Encounter Details Date Type Department Care Team (Late st Contact Info) Description 03/15/2022 Telephone [facility] at [address] [address] Ronald Mills MD [address] [place] [address] Results Social History Tobacco Use Types [...] [facility] Building [address] [place], [place] [phone] Ronald Mills MD 240 [facility] Max [address] [place] [address] documented as of this encounter Visit Diagnoses Not on filedocumented in this encounter Additional Health Concerns Infection Onset Date Last Indicated Resolved Time COVID-19 03/05/2022 03/05/2022 03/15/2022 7:18 PM EDT Assessment Noted Time PHQ-9 Depression Total Score: 2 11/07/19 19 2:06 PM EDT documented as of this encounter Care Teams Pricing Clerk Relationship Specialty Start Date End Date Caitlyn [place] MD [address] [address] PCP - General Internal Medicine 05/06/21 documented as of this encounter
--- OUTSIDE RECORDS SUMMARY | 2024-11-21 11:37 | XMS_ITS | Encounter Summary ---
Author Organization [facility] and [facility] Address [address] [place] [address] Care Team Providers Care Lockstitch Binder Name Role Phone Caitlyn [place]ie MD Primary Care Provider +1- [phone] Encounter Details Date Type Department Care Team (Late st Contact Info) Description 09/09/2024 Scanned Document INTERFACE DEFAULT [address] [place] [address] System, Provider Not In Social History Tobacco [...] at [facility] 240 [facility] Building [address] [place], [place] [phone] Ronald Mills MD [address] [place] [address] [address]1 [place] [address] documented as of this encounter [...] as of this encounter Care Teams Lockstitch Binder Relationship Specialty Start Date End Date Caitlyn [place]ie MD [address] [address] PCP - General Internal Medicine 05/06/21 documented as of this encounter
--- OUTSIDE RECORDS SUMMARY | 2024-11-21 11:37 | XMS_ITS | Encounter Summary ---
Author Organization [facility] and [facility] Address [address] [place] [address] Care Team Providers Care Template Clerk Name Role Phone Caitlyn [place]ie MD Primary Care Provider +1- [phone] Encounter Details Date Type Department Care Team (Late st Contact Info) Description 01/08/2019 Scanned Document [facility] Health Information Management [address] [place] [address] External, Provider Social History Tobacco Use Types [...] [facility] 240 [facility] Building [address] [place] [address] Ronald Mills MD [address] [place] [address] [address] [place] [address] documented as of this encounter [...] MD 3400 [facility] 1 [place] [address] PCP - General Internal Medicine 05/06/21 Henry Kelly MD Pulmonary Department 175 [facility], [address] [place] [address] Physician Pulmonary Disease 09/06/17 06/22/20 documented as of this encounter
--- OUTSIDE RECORDS SUMMARY | 2024-11-21 11:38 | XMS_ITS | Encounter Summary ---
Author Organization [facility] and [facility] Address [address] [place] [address] Care Team Providers Care Teacher Vocational Training Name Role Phone Caitlyn [place]ie MD Primary Care Provider +1- [phone] Encounter Details Date Type Department Care Team (Late st Contact Info) Description 10/23/2024 Scanned Document INTERFACE DEFAULT [address] [place] [address] System, Provider Not In Social History Tobacco [...] [facility] Building [address] [place], [place] [address] Ronald Mills MD [address] [place] [address] [address] [place] [address] documented as of this encounter [...] as of this encounter Care Teams Teacher Vocational Training Relationship Specialty Start Date End Date Caitlyn [place]ie MD [address] [address] PCP - General Internal Medicine 05/06/21 documented as of this encounter
--- OUTSIDE RECORDS SUMMARY | 2024-11-21 11:38 | XMS_ITS | Encounter Summary ---
Author Organization [facility] and [facility] Address [address] [place] [address] Care Team Providers Care Ballast Inspector Name Role Phone Caitlyn [place]ie MD Primary Care Provider +1- [phone] Reason for Referral * Imaging (Routine) - Closed Specialty Diagnoses / Procedures Referred By Contac t Referred To Contact Procedures NM Lung Ventilation Perfusion ([facility]) External, Provider Referral ID Status Reason Start Date Expiration Date Visits Re quested Visits Authorized [id number] Closed 08/22/2016 08/22/2017 4 4 Encounter Details Date Type Department Care Team (Late st Contact Info) Description 08/22/2016 Scanned Document Thoracic Oncology Program at [address] [address] External, Provider Social History Tobacco Use Types [...] PM EDT Telemedicine Cancer Center at [address] [place] [address] Ronald Mills MD [address] [place] [address] Rd [address] [place] [address] documented as of this encounter Procedures Procedure Name Priority Date/Time Associated Diagnosis Comments XRAY RESULT SCAN Routine 07/27/2016 CT RESULT SCAN Routine 07/27/2016 CT RESULT SCAN Routine 07/27/2016 CARDIAC EKG RESULT SCAN Routine 07/27/2016 LAB SCAN Routine 07/27/2016 NM LUNG VENTILATION PERFUSIO N ([facility]) Routine 07/27/2016 documented in this encounter Results * Xray Result Scan (07/27/2016) us Provider External IMG SCAN REPORTS Final Result Performing Organization Address [facility] Co de Phone Number [facility] * CT Result Scan (07/27/2016) us Provider External IMG SCAN REPORTS Final Result Performing Organization Address [facility] Co de Phone Number [facility] * Cardiac EKG Result Scan (07/27/2016) us Provider External CV CARDIAC REPORT (CVR) Final Result Performing Organization Address [facility] Co de Phone Number [facility] * CT Result Scan (07/27/2016) us Provider External IMG SCAN REPORTS Final Result Performing Organization Address [facility] Co de Phone Number [facility] * Lab Scan (07/27/2016) Blood specimen (specimen) us Provider External LAB BLOOD ORDERABLES Final Res ult Performing Organization Address [facility] Co de Phone Number [facility] * NM Lung Ventilation Perfusion ([facility]) (07/27/2016) Anatomical Region Laterality Modality Chest, Lung Nuclear Medicine us Provider External IMG NM ORDERABLES Final Result documented in this encounter Visit Diagnoses Not on filedocumented in this encounter Additional Health Concerns Infection Onset Date Last Indicated Resolved Time COVID-19 03/05/2022 03/05/2022 03/15/2022 7:18 PM EDT documented as of this encounter Care Teams Ballast Inspector Relationship Specialty Start Date End Date Caitlyn [place] MD 3400 [facility] 1 [place] [address] PCP - General Internal Medicine 05/06/21 Henry Kelly MD Pulmonary Department 175 [facility], [address] [place] [address] Physician Pulmonary Disease 09/06/17 06/22/20 documented as of this encounter
--- OUTSIDE RECORDS SUMMARY | 2024-11-21 11:38 | XMS_ITS | Encounter Summary ---
Author Organization [facility] and [facility] Address [address] [place] [address] Care Team Providers Care Wrestling Coach Name Role Phone Caitlyn [place]ie MD Primary Care Provider +1- [phone] Encounter Details Date Type Department Care Team (Late st Contact Info) Description 06/17/2016 Scanned Document [facility] Health Information Management [address] [place] [address] External, Provider Social History Tobacco Use Types [...] Cancer Center at [facility] 240 [facility] Building [address] [place], [place] [address] Ronald Mills MD 240 [facility] Max [address] [place] [address] documented as of this encounter Procedures Procedure Name Priority Date/Time Associated Diagnosis Comments XRAY RESULT SCAN Routine 06/17/2016 documented in this encounter Results * Xray Result Scan (06/17/2016) us Provider External IMG SCAN REPORTS Final Result [facility] [place], [place], [facility] documented in this encounter Visit Diagnoses Not on filedocumented in this encounter Additional Health Concerns Infection Onset Date Last Indicated Resolved Time COVID-19 03/05/2022 03/05/2022 03/15/2022 7:18 PM EDT documented as of this encounter Care Teams Wrestling Coach Relationship Specialty Start Date End Date Caitlyn [place]ie MD 3400 [facility] 1 [place] [address] PCP - General Internal Medicine 05/06/21 Henry Kelly MD Pulmonary Department [address] [place] [address], [address] [place] [address] Physician Pulmonary Disease 09/06/17 06/22/20 documented as of this encounter
--- OUTSIDE RECORDS SUMMARY | 2024-11-21 11:38 | XMS_ITS | Encounter Summary ---
Author Organization [facility] and [facility] Address [address] [place] [address] Care Team Providers Care Technical Project Manager Name Role Phone Caitlyn [place]ie MD Primary Care Provider +1- [phone] Encounter Details Date Type Department Care Team (Late st Contact Info) Description 04/19/2024 Scanned Document INTERFACE DEFAULT [address] [place] [address] System, Provider Not In Social History Tobacco [...] [facility] 240 [facility] Building [address] [place], [place] [address] Ronald Mills MD [address] [place] [address] [address] [place] [address] documented as of this encounter [...] as of this encounter Care Teams Technical Project Manager Relationship Specialty Start Date End Date Caitlyn [place]ie MD [address] [address] PCP - General Internal Medicine 05/06/21 documented as of this encounter
--- OUTSIDE RECORDS SUMMARY | 2024-11-21 11:38 | XMS_ITS | Encounter Summary ---
Author Organization [facility] and [facility] Address [address] [place] [address] Care Team Providers Care Arts Therapist Name Role Phone Caitlyn [place]ie MD Primary Care Provider +1- [phone] Encounter Details Date Type Department Care Team (Late st Contact Info) Description 04/08/2024 Scanned Document INTERFACE DEFAULT [address] [place] [address] System, Provider Not In Social History Tobacco [...] [facility] 240 [facility] Building [address] [place], [place] [address] Ronald Mills MD [address] [place] [address] [address] [place] [address] documented as of this encounter [...] as of this encounter Care Teams Arts Therapist Relationship Specialty Start Date End Date Caitlyn Bowie MD [address] [address] PCP - General Internal Medicine 05/06/21 documented as of this encounter
--- OUTSIDE RECORDS SUMMARY | 2024-11-21 11:38 | XMS_ITS | Encounter Summary ---
Author Organization [facility] and [facility] Address [address] [place] [address] Care Team Providers Care Assistant Maintenance Manager Name Role Phone Caitlyn Bowie MD Primary Care Provider +1- [phone] Encounter Details Date Type Department Care Team (Late st Contact Info) Description 07/08/2016 Scanned Document [facility] Health Information Management [address] [place] [address] External, Provider Social History Tobacco Use Types [...] at [facility] 240 [facility] [address] [place], [place] [phone] Ronald Mills MD 240 [facility] [address] [place] [address] documented as of this encounter Procedures Procedure Name Priority Date/Time Associated Diagnosis Comments LAB SCAN Routine 07/08/2016 documented in this encounter Results * Lab Scan (07/08/2016) Blood specimen (specimen) us Provider External LAB BLOOD ORDERABLES Final Res ult [facility] documented in this encounter Visit Diagnoses Not on filedocumented in this encounter Additional Health Concerns Infection Onset Date Last Indicated Resolved Time COVID-19 03/05/2022 03/05/2022 03/15/2022 7:18 PM EDT documented as of this encounter Care Teams Assistant Maintenance Manager Relationship Specialty Start Date End Date Caitlyn Bowie MD 3400 [facility] 1 [place] [address] PCP - General Internal Medicine 05/06/21 Henry Kelly MD Pulmonary Department 175 [facility], [address] [place] [address] Physician Pulmonary Disease 09/06/17 06/22/20 documented as of this encounter
--- OUTSIDE RECORDS SUMMARY | 2024-11-21 11:38 | XMS_ITS | Encounter Summary ---
Author Organization [facility] and [facility] Address [address] [place] [address] Care Team Providers Care Engineer Soils Name Role Phone Caitlyn Bowie MD Primary Care Provider +1- [phone] Encounter Details Date Type Department Care Team (Late st Contact Info) Description 07/27/2016 Scanned Document Thoracic Oncology Program at [address] [address] Suzy Kong MD [address] [place] [phone] Social History Tobacco Use Types Packs/Day [...] 4:00 PM EDT Telemedicine Cancer Center at [address] [place], [place] [phone] Ronald Mills MD 240 [facility] [address] [place] [address] documented as of this encounter Visit Diagnoses Not on filedocumented in this encounter Additional Health Concerns Infection Onset Date Last Indicated Resolved Time COVID-19 03/05/2022 03/05/2022 03/15/2022 7:18 PM EDT documented as of this encounter Care Teams Engineer Soils Relationship Specialty Start Date End Date Caitlyn Bowie MD 3400 [facility] Max 1 [place] [address] PCP - General Internal Medicine 05/06/21 Henry Kelly MD Pulmonary Department 175 [facility], [address] [place] [address] Physician Pulmonary Disease 09/06/17 06/22/20 documented as of this encounter
--- OUTSIDE RECORDS SUMMARY | 2024-11-21 11:38 | XMS_ITS | Encounter Summary ---
Author Organization [facility] and [facility] Address [address] [place] [address] Care Team Providers Care Label Printer Name Role Phone Caitlyn Bowie MD Primary Care Provider +1- [phone] Encounter Details Date Type Department Care Team (Late st Contact Info) Description 12/16/2016 Scanned Document [facility] Health Information Management [address] [place] [address] External, Provider Social History Tobacco Use Types [...] [facility] 240 [facility] Building [address] [place], [place] [phone] Ronald Mills MD 240 [facility] [address] [place] [address] documented as of this encounter [...] as of this encounter Care Teams Label Printer Relationship Specialty Start Date End Date Caitlyn Bowie MD 3400 [facility] 1 [place] [address] PCP - General Internal Medicine 05/06/21 Henry Kelly MD Pulmonary Department 175 [facility], [address] [place] [address] Physician Pulmonary Disease 09/06/17 06/22/20 documented as of this encounter
--- OUTSIDE RECORDS SUMMARY | 2024-11-21 11:38 | XMS_ITS | Encounter Summary ---
Author Organization [facility] and [facility] Address [address] [place] [address] Care Team Providers Care River Pilot Name Role Phone Caitlyn Bowie MD Primary Care Provider +1- [phone] Encounter Details Date Type Department Care Team (Late st Contact Info) Description 07/27/2016 Scanned Document Thoracic Oncology Program at [address] [address] Suzy Kong MD [address] [place] [phone] Social History Tobacco Use Types Packs/Day [...] PM EDT Telemedicine Cancer Center at [address] [place], [place] [phone] Ronald Mills MD 240 [facility] [address] [place] [address] documented as of this encounter Visit Diagnoses Not on filedocumented in this encounter Additional Health Concerns Infection Onset Date Last Indicated Resolved Time COVID-19 03/05/2022 03/05/2022 03/15/2022 7:18 PM EDT documented as of this encounter Care Teams River Pilot Relationship Specialty Start Date End Date Caitlyn Bowie MD 3400 [facility] Max 1 [place] [address] PCP - General Internal Medicine 05/06/21 Henry Kelly MD Pulmonary Department 175 [facility], [address] [place] [address] Physician Pulmonary Disease 09/06/17 06/22/20 documented as of this encounter
--- OUTSIDE RECORDS SUMMARY | 2024-11-21 11:38 | XMS_ITS | Encounter Summary ---
Author Organization [facility] and [facility] Address [address] [place] [address] Care Team Providers Care Speech Instructor Name Role Phone Caitlyn Bowie MD Primary Care Provider +1- [phone] Encounter Details Date Type Department Care Team (Late st Contact Info) Description 12/14/2016 Scanned Document [facility] Health Information Management [address] [place] [address] External, Provider Social History Tobacco Use Types [...] Cancer Center at [facility] 240 [facility] [address] [place], [place] [phone] Ronald Mills MD 240 [facility] [address] [place] [address] documented as of this encounter [...] as of this encounter Care Teams Speech Instructor Relationship Specialty Start Date End Date Caitlyn Bowie MD 3400 [facility] 1 [place] [address] PCP - General Internal Medicine 05/06/21 Henry Kelly MD Pulmonary Department 175 [facility], [address] [place] [address] Physician Pulmonary Disease 09/06/17 06/22/20 documented as of this encounter
--- OUTSIDE RECORDS SUMMARY | 2024-11-21 11:38 | XMS_ITS | Encounter Summary ---
Author Organization [facility] and [facility] Address [address] [place] [address] Care Team Providers Care Eyelet Machine Operator Name Role Phone Caitlyn Bowie MD Primary Care Provider +1- [phone] Encounter Details Date Type Department Care Team (Late st Contact Info) Description 06/17/2016 Scanned Document [facility] Health Information Management [address] [place] [address] External, Provider Social History Tobacco Use Types [...] at [facility] 240 [facility] Building [address] [place], [place] [phone] Ronald Mills MD 240 [facility] A1 [place] [address] documented as of this encounter Visit Diagnoses Not on filedocumented in this encounter Additional Health Concerns Infection Onset Date Last Indicated Resolved Time COVID-19 03/05/2022 03/05/2022 03/15/2022 7:18 PM EDT documented as of this encounter Care Teams Eyelet Machine Operator Relationship Specialty Start Date End Date Caitlyn Boiwe MD 3400 [facility] 1 [place] [address] PCP - General Internal Medicine 05/06/21 Henry Kelly MD Pulmonary Department 175 [facility], [address] [place] [address] Physician Pulmonary Disease 09/06/17 06/22/20 documented as of this encounter
--- OUTSIDE RECORDS SUMMARY | 2024-11-21 11:38 | XMS_ITS | Encounter Summary ---
Author Organization [facility] and [facility] Address [address] [place] [address] Care Team Providers Care Rn Diabetes Name Role Phone Caitlyn Bowie MD Primary Care Provider +1- [phone] Encounter Details Date Type Department Care Team (Late st Contact Info) Description 06/17/2016 Scanned Document [facility] Health Information Management [address] [place] [address] External, Provider Social History Tobacco Use Types [...] [facility] 240 [facility] Building [address] [place], [place] [phone] Ronald Mills MD 240 [facility] A1 [place] [address] documented as of this encounter Visit Diagnoses Not on filedocumented in this encounter Additional Health Concerns Infection Onset Date Last Indicated Resolved Time COVID-19 03/05/2022 03/05/2022 03/15/2022 7:18 PM EDT documented as of this encounter Care Teams Rn Diabetes Relationship Specialty Start Date End Date Caitlyn Bowie MD 3400 [facility] 1 [place] [address] PCP - General Internal Medicine 05/06/21 Henry Kelly MD Pulmonary Department 175 [facility], [address] [place] [address] Physician Pulmonary Disease 09/06/17 06/22/20 documented as of this encounter
--- OUTSIDE RECORDS SUMMARY | 2024-11-21 11:38 | XMS_ITS | Encounter Summary ---
Author Organization [facility] and [facility] Address [address] [place] [address] Care Team Providers Care Handle Bender Name Role Phone Caitlyn Bowie MD Primary Care Provider +1- [phone] Encounter Details Date Type Department Care Team (Late st Contact Info) Description 10/10/2016 Scanned Document [facility] Health Information Management [address] [place] [address] External, Provider Social History Tobacco Use Types [...] Center at [facility] 240 [facility] Building [address] [place], [place] [phone] Ronald Mills MD 240 [facility] A1 [place] [address] documented as of this encounter Visit Diagnoses Not on filedocumented in this encounter Additional Health Concerns Infection Onset Date Last Indicated Resolved Time COVID-19 03/05/2022 03/05/2022 03/15/2022 7:18 PM EDT documented as of this encounter Care Teams Handle Bender Relationship Specialty Start Date End Date Caitlyn Bowie MD 3400 [facility] 1 [place] [address] PCP - General Internal Medicine 05/06/21 Henry Kelly MD Pulmonary Department 175 [facility], [address] [place] [address] Physician Pulmonary Disease 09/06/17 06/22/20 documented as of this encounter
--- OUTSIDE RECORDS SUMMARY | 2024-11-21 11:38 | XMS_ITS | Encounter Summary ---
Author Organization [facility] and [facility] Address [address] [place] [address] Care Team Providers Care Life Manager Name Role Phone Caitlyn Bowie MD Primary Care Provider +1- [phone] Encounter Details Date Type Department Care Team (Late st Contact Info) Description 04/23/2024 Scanned Document INTER[facility] DEFAULT [address] [place] [address] System, Provider Not In Social History Tobacco [...] – [facility] 240 [facility] Building [address] [place], [place] [phone] Ronald Mills MD [address] [place] [address] [address] [place] [address] documented as of this encounter [...] as of this encounter Care Teams Life Manager Relationship Specialty Start Date End Date Caitlyn Bowie MD [address] [address] PCP - General Internal Medicine 05/06/21 documented as of this encounter
--- OUTSIDE RECORDS SUMMARY | 2024-11-21 11:38 | XMS_ITS | Encounter Summary ---
Author Organization [facility] and [facility] Address [address] [place] [address] Care Team Providers Care Patch Washer Name Role Phone Caitlyn Bowie MD Primary Care Provider +1- [phone] Encounter Details Date Type Department Care Team (Late st Contact Info) Description 07/27/2016 Scanned Document Thoracic Oncology Program at [address] [address] Suzy Kong MD [address] [place] [phone] Social History Tobacco Use Types Packs/Day [...] PM EDT Telemedicine Cancer Center at [address] [place], [place] [phone] Ronald Mills MD 240 [facility] Max [address] [place] [address] documented as of this encounter Visit Diagnoses Not on filedocumented in this encounter Additional Health Concerns Infection Onset Date Last Indicated Resolved Time COVID-19 03/05/2022 03/05/2022 03/15/2022 7:18 PM EDT documented as of this encounter Care Teams Patch Washer Relationship Specialty Start Date End Date Caitlyn Bowie MD 3400 [facility] Max 1 [place] [address] PCP - General Internal Medicine 05/06/21 Henry Kelly MD Pulmonary Department 175 [facility], [address] [place] [address] Physician Pulmonary Disease 09/06/17 06/22/20 documented as of this encounter
--- OUTSIDE RECORDS SUMMARY | 2024-11-21 11:38 | XMS_ITS | Encounter Summary ---
Author Organization [facility] and [facility] Address [address] [place] [address] Care Team Providers Care Dog Sitter Name Role Phone Caitlyn Bowie MD Primary Care Provider +1- [phone] Encounter Details Date Type Department Care Team (Late st Contact Info) Description 12/16/2016 Scanned Document [facility] Health Information Management [address] [place] [address] External, Provider Social History Tobacco Use Types [...] at [facility] 240 [facility] Building [address] [place], [place] [phone] Ronald Mills MD 240 [facility] Max [address] [place] [address] documented as of this encounter [...] as of this encounter Care Teams Dog Sitter Relationship Specialty Start Date End Date Caitlyn Bowie MD 3400 [facility] 1 [place] [address] PCP - General Internal Medicine 05/06/21 Henry Kelly MD Pulmonary Department 175 [facility], [address] [place] [address] Physician Pulmonary Disease 09/06/17 06/22/20 documented as of this encounter
--- OUTSIDE RECORDS SUMMARY | 2024-11-21 11:38 | XMS_ITS | Encounter Summary ---
Author Organization [facility] and [facility] Address [address] [place] [address] Care Team Providers Care Wire Stretcher Name Role Phone Caitlyn Bowie MD Primary Care Provider +1- [phone] Encounter Details Date Type Department Care Team (Late st Contact Info) Description 04/04/2016 Scanned Document [facility] Health Information Management [address] [place] [address] External, Provider Social History Tobacco Use Types [...] Telemedicine Cancer Center at [facility] 240 [facility] Building [address] [place], [place] [phone] Ronald Mills MD 240 [facility] [address] [place] [address] documented as of this encounter Procedures Procedure Name Priority Date/Time Associated Diagnosis Comments LAB SCAN Routine 04/04/2016 documented in this encounter Results * Lab Scan (04/04/2016) Blood specimen (specimen) us Provider External LAB BLOOD ORDERABLES Final Res ult [facility] documented in this encounter Visit Diagnoses Not on filedocumented in this encounter Additional Health Concerns Infection Onset Date Last Indicated Resolved Time COVID-19 03/05/2022 03/05/2022 03/15/2022 7:18 PM EDT documented as of this encounter Care Teams Wire Stretcher Relationship Specialty Start Date End Date Caitlyn Bowie MD 3400 [facility] [place] [address] PCP - General Internal Medicine 05/06/21 Henry Kelly MD Pulmonary Department 175 [facility], [address] [place] [address] Physician Pulmonary Disease 09/06/17 06/22/20 documented as of this encounter
--- OUTSIDE RECORDS SUMMARY | 2024-11-21 11:38 | XMS_ITS | Encounter Summary ---
Author Organization [facility] and [facility] Address [address] [place] [address] Care Team Providers Care Fruit Farmer Name Role Phone Caitlyn Bowie MD Primary Care Provider +1- [phone] Encounter Details Date Type Department Care Team (Late st Contact Info) Description 12/14/2016 Scanned Document [facility] Health Information Management [address] [place] [address] External, Provider Social History Tobacco Use Types [...] [facility] 240 [facility] Building [address] [place], [place] [phone] Ronald Mills MD 240 [facility] A1 [place] [address] documented as of this encounter Visit Diagnoses Not on filedocumented in this encounter Additional Health Concerns Infection Onset Date Last Indicated Resolved Time COVID-19 03/05/2022 03/05/2022 03/15/2022 7:18 PM EDT documented as of this encounter Care Teams Fruit Farmer Relationship Specialty Start Date End Date Caitlyn Bowie MD 3400 [facility] 1 [place] [address] PCP - General Internal Medicine 05/06/21 Henry Kelly MD Pulmonary Department 175 [facility], [address] [place] [address] Physician Pulmonary Disease 09/06/17 06/22/20 documented as of this encounter
== END 2024-11-21 11:09 | disposition home or self-care (01) ==
LOC: HO.HPS 10:25
PROVIDERS: PCP Internal Medicine; Visit Provider Hospitalist
DX: J41.0 Simple chronic bronchitis (principal); J96.12 Chronic respiratory failure with hypercapnia; G47.31 Primary central sleep apnea; I27.20 Pulmonary hypertension, unspecified; R91.8 Other nonspecific abnormal finding of lung field; J96.11 Chronic respiratory failure with hypoxia; G47.33 Obstructive sleep apnea (adult) (pediatric); J70.1 Chronic and other pulmonary manifestations due to radiation; I50.32 Chronic diastolic (congestive) heart failure; C34.12 Malignant neoplasm of upper lobe, left bronchus or lung; J90 Pleural effusion, not elsewhere classified
CPT/HCPCS: 99215; G2211

== ENCOUNTER → 2024-11-21 10:24 | Outpatient (BNVA) | payer MEDICARE, SELFPAY | PROVIDERS: PCP Internal Medicine; Visit Provider Hospitalist | DX: J41.0 Simple chronic bronchitis (principal); J96.11 Chronic respiratory failure with hypoxia; J96.12 Chronic respiratory failure with hypercapnia; G47.33 Obstructive sleep apnea (adult) (pediatric); G47.31 Primary central sleep apnea; I27.20 Pulmonary hypertension, unspecified; R91.8 Other nonspecific abnormal finding of lung field; J70.1 Chronic and other pulmonary manifestations due to radiation; I50.32 Chronic diastolic (congestive) heart failure; C34.12 Malignant neoplasm of upper lobe, left bronchus or lung; J90 Pleural effusion, not elsewhere classified; Z86.711 Personal history of pulmonary embolism; Z99.89 Dependence on other enabling machines and devices | CPT/HCPCS: 99212 ==

== ENCOUNTER → 2024-12-11 20:30 | Outpatient (REF) | payer MEDICARE, SELFPAY ==
--- OUTSIDE RECORDS SUMMARY | 2024-12-11 21:50 | XMS_ITS | Encounter Summary ---
Author Organization [facility] and [facility] Address [address] [place] [address] Care Team Providers Care Instructor Of Nursing Name Role Phone Caitlyn Bowie MD Primary Care Provider +1- [phone] Encounter Details Date Type Department Care Team (Late st Contact Info) Description 07/08/2020 Scanned Document [facility] Health Information Management [address] [place] [address] External, Provider Social History Tobacco Use Types [...] Health – [facility] 240 [facility] Building [address] [place], [place] [phone] Ronald Mills MD [address] [place] [address] [address] [place] [address] documented as of this encounter [...] End Date Caitlyn Bowie MD [address] [address] PCP - General Internal Medicine 05/06/21 documented as of this encounter
== END ==
LOC: HO.SL 20:30
PROVIDERS: PCP Internal Medicine; Visit Provider Hospitalist
DX: J96.12 Chronic respiratory failure with hypercapnia (principal); I27.20 Pulmonary hypertension, unspecified; G47.33 Obstructive sleep apnea (adult) (pediatric)
CPT/HCPCS: 95810

== ENCOUNTER → 2024-12-11 21:35 | Outpatient (BNV) | payer MEDICARE, SELFPAY | PROVIDERS: PCP Internal Medicine; Visit Provider Internal Medicine | DX: G47.9 Sleep disorder, unspecified (principal) | CPT/HCPCS: 95810 ==

== ENCOUNTER 2024-12-26 14:54 | Outpatient (AMB) | payer MEDICARE, SELFPAY ==
--- NOTE | 2024-12-26 14:57 | MHC.OFFVIS ---
Vital Signs 12/26/24 14:58 Height 5 ft 3 in Weight 128 lb 15.527 oz BMI 22.8 BP 112/50 L Blood Pressure Location Lt brachial Position Sitting Pulse 69 Pulse Source Pulse Oximeter Pulse Oximetry (%) 97 Oxygen Delivery Method Nasal Cannula Oxygen Flow Rate 2 Intake Visit Reasons: Cough Creche Attendant Required: No Accompanied by: Self / Same As Patient Allergies morphine Allergy (Severe, Verified 12/26/24 15:00) Itching avocado (AVOCADO) Allergy (Mild, Verified 12/26/24 15:00) ITCHY THROAT, RASH azithromycin (AZITHROMYCIN) Allergy (Mild, Verified 12/26/24 15:00) ITCHY THROAT, RASH barium iodide (BARIUM IODIDE) Allergy (Mild, Verified 12/26/24 15:00) ITCHY THROAT, RASH barium sulfate Allergy (Mild, Verified 12/26/24 15:00) Itch bee pollen (BEE STINGS) Allergy (Mild, Verified 12/26/24 15:00) ITCHY THROAT, RASH ciprofloxacin (From CIPRO) Allergy (Mild, Verified 12/26/24 15:00) ITCHY THROAT, RASH clarithromycin (From BIAXIN) Allergy (Mild, Verified 12/26/24 15:00) ITCHY THROAT, RASH diatrizoate meglumine (From GASTROGRAFIN) Allergy (Mild, Verified 12/26/24 15:00) ITCHY THROAT, RASH diatrizoate sodium (From GASTROGRAFIN) Allergy (Mild, Verified 12/26/24 15:00) ITCHY THROAT, RASH diclofenac (From VOLTAREN) Allergy (Mild, Verified 12/26/24 15:00) ITCHY THROAT, RASH erythromycin base (ERYTHROMYCIN BASE) Allergy (Mild, Verified 12/26/24 15:00) ITCHY THROAT, RASH gentamicin (GENTAMICIN) Allergy (Mild, Verified 12/26/24 15:00) ITCHY THROAT, RASH Iodinated Contrast Media (IVP DYE) Allergy (Mild, Verified 12/26/24 15:00) ITCHY THROAT, RASH levofloxacin (From LEVAQUIN) Allergy (Mild, Verified 12/26/24 15:00) ITCHY THROAT, RASH metronidazole (From FLAGYL) Allergy (Mild, Verified 12/26/24 15:00) ITCHY THROAT, RASH moxifloxacin (From AVELOX) Allergy (Mild, Verified 12/26/24 15:00) ITCHY THROAT, RASH Penicillins (PENICILLINS) Allergy (Mild, Verified 12/26/24 15:00) ITCHY THROAT, RASH shrimp (SHRIMP) Allergy (Mild, Verified 12/26/24 15:00) ITCHY THROAT, RASH Sulfa (Sulfonamide Antibiotics) (SULFA (SULFONAMIDE ANTIBIOTICS)) Allergy (Mild, Verified 12/26/24 15:00) ITCHY THROAT, RASH vancomycin (VANCOMYCIN) Allergy (Mild, Verified 12/26/24 15:00) ITCHY THROAT, RASH clindamycin Adverse Reaction (Intermediate, Verified 12/26/24 15:00) Unknown HPI Comments Details: The patient is a 79 y/o woman with a complicated history which includes: COPD, KANDY, pulmonary HTN, history pulmonary emboli on chronic anticoagulation, lung CA Stage IIIA s/o neoadjuvant chemoradiation and Left upper lobe lobectomy. She did have a CT scan today that I personally reviewed. Has not been personally read by the radiologist. Based on my reading she has some pulmonary nodules some that are new 4 mm in the right major fissure area. Other nodules are stable. Other post operative and pulmonary fibrotic changes stable. The patient should get a CT scan in 6 months. Also to note, she did not tolerate the Incruse nor budesonide. Will consider Daliresp. She was admitted to [facility] with diverticulitis. She was placed on IV antibiotics but she left against medical advice because she did not like the antibiotic options. In the meantime she was having some issues with coughing up some blood. She is also concerned because on her visit to [facility] she did have a CT scan of the chest and she was told that she had significant scarring of her lungs in addition to lung volume loss. I have not looked at the CT scan back in reassured her that she has had this radiation fibrosis for long time and volume loss due to the scarring was present before. We did review her perfusion scan demonstrating no defects to suggest any blood clots. Interestingly in the quantitative study the patient did have 81% of the blood flow going to her right lung and 18% going to the left. This is likely due to her previous surgery and also radiation changes. 03/21/2024 the patient is here for pulmonary follow-up visit. She has multiple complaints. She is entirely seems any physicians. She is still dealing with the wound getting plenty of wound care 4. Still getting debrided. In addition to that she has had a productive cough. The phlegm is now clear but thick difficult to expectorate. Sometimes feel like it is dripping for nasal passages down like a postnasal drip. The patient is currently on cefpodoxime. She is finishing a course. We did try to get sputum in the office but she was not able to do so. I did give her a cup in order for her to be doing her own time. We will be able to look for both Gram stain culture and also AFB. The patient also had a chest x-ray which I personally reviewed and also compared to her previous x-rays. It appears that she has worsening left-sided pleural effusion. Hard to know that is long as very affected on that side there is any active disease otherwise. She has not had a CT scan since October. In view of the worsening chest x-ray in the ongoing symptoms will go ahead and request a CT scan time. The patient also could try some Mucomyst. I will send some to the pharmacy to see if we can get it. She understands that is hard to get. When she gets she can use it twice a day for CPT to see if this helps clear the secretions that gets that within her airways. In addition to that the patient has been using the BiPAP. The BiPAP therapy has been affecting beneficial. She does use it for more than 4 hours a night. However, she does have a component of hypercarbia and she would do better with the noninvasive ventilator. Currently she is set up for sleep study at [facility] coming up. Hopefully they can do a split study and try titrate her figure out what her best form of therapy it is. At some point though if she continues on the BiPAP will need to replace it because his older than 5 years. 05/09/2024 the patient is here for a pulmonary follow-up visit. Overall she is doing well from a respiratory status. She recently did have a CT scan of the chest that at [facility]. I did personally reviewed. Appears to be stable. She does have the chronic effusion in the parenchymal disease. This is all stable. She does have a small compression fracture though. Has significant osteopenia. She did have blood work with her granulating machine operator recently. Her antiphospholipid antibodies and anticardiolipin antibodies continue antiphospholipid antibody elevated. Her homocystine that was also elevated. She is going to start folic acid. She is concerned because her D-dimer was significantly elevated. Although she did have trauma to the legs. She had lower extremity Dopplers which were negative for any clots which is reassuring. Previous he Q scans have been reassuring. Will go ahead and repeat her blood test to see make sure that the D-dimer is coming down. If the D-dimer continues to be elevated then will do additional testing for potential occult clots. She continues on the Coumadin with a goal level 1.5-2. I do believe that she should stay on it based on the fact that she has significant symptoms and coming off the medicine may result in more security of the results specially since the Coumadin has been working for her chronic thromboembolic disease. From the wound standpoint the patient is doing better from the wound healing on her right lower extremity although she recently had another the trauma to the left. She is also dealing with a boil or a growth on the perineal area. She is going to be seeing gas engine mechanic for that. 08/08/2024 the patient is here for a pulmonary follow-up visit. Overall she is doing okay. She does have issues with her balance and also issues with dysuria. The patient has been also having issues with her oxygen that was at nighttime. She has been noticing worsening hypoxia. She has been using her BiPAP 16/10. She does use it with her oxygen. The patient did have a download recently and her AHI is up to 10 cm. She also had a blood gas demonstrating elevations in her CO2. Therefore, will go ahead and increase her BiPAP settings from 16-10 to 18/12. This BiPAP is about 6 years old now. The patient likely needs a replacement. Will go ahead and refer her to sleep in [place] in order for her to undergo a split study in order to get her a new PAP therapy. During the titration study component will be helpful to see if she is better off with AVAPS versus BiPAP. We did try her underlying AVAP but she could not tolerate it. She followed she did not have enough teaching. Therefore, will go ahead and increase the pressures of her BiPAP monitor her AHI and recheck a venous gas while we wait for her to see a certified sleep specialist in [place]. In the meantime she continues with her diuresis. Will go ahead and check a blood work. The patient also had a CT scan of the chest back in 03/29/2024 demonstrating no acute disease just a chronic changes. Will plan to talk about any additional imaging during her next visit. She will continue with current respiratory regimen for now. 09/11/2024 the patient is here for hospital follow-up visit. Apparently she was in the ER with worsening shortness of breath and cough. She was at [facility]. There she did have blood work. Her brain atretic peptide was significantly elevated at 100. She also did have a CT scan of the chest which I personally reviewed. She does have just chronic findings which include her radiation fibrosis decreased lung volume on the left along with the small pleural effusion on the left with the heart shifted Leftward as well volume loss. She was diagnosed with bronchitis and the patient was discharged. We did review further blood work and her sedimentation rate has been climbing slowly now at 51. in addition to that she does have a history of positive CLARA and now she is complaining of some pleuritic chest discomfort bringing up the question of underlying connective tissue disease resulting in some pleuritis. In addition to that she has been feeling episodes of increased heart rate and shortness of breath. I suspect that is likely a pulmonary vascular component. Her last echocardiogram demonstrating moderate degree of pulmonary hypertension. Unfortunately, she did not tolerate pulmonary vasodilators because if the significant amount of increase in the volume to the left ventricle then ultimately resulting in congestive heart failure. Therefore hold off on that. The patient is also anxious. She is not sleeping well. She feels that she is going to fall asleep and not wake up. She is willing to try small dose of Ambien. This will help her fall asleep and I explained to her that is not going to suppress her respiratory drive. We also did look at her blood gas that she had initially when she showed up and she had a severe case of respiratory alkalosis and she was able to breathe down her pCO2 down to 24 which is pretty significant. In addition to that she is willing to try small dose of Plaquenil to treat her for underlying pleuritis and pain and see if this can provide some relief as we repeat her blood work. She will be following up with Hematology. 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 I did print out the blood work so she can talk to her granulating machine operator in the meantime will go ahead and repeat her blood work as well. She continues to be on high dose of diuretics. Volume status seems to be better at this time. She continues use the oxygen with good effect. Sometimes her oxygen drops because of her cardiopulmonary disease. She does not have much pulmonary reserve. In with the pulmonary hypertension along with diastolic dysfunction this quit quickly result in hypoxia. She can take breaks though when she is sitting as lungs are oxygens above 90%. 11/04/2024 the patient is here for a pulmonary follow-up visit. Since we last spoke she started developing abdominal pain. She did go to the ER where she was diagnosed with diverticulitis based on a CAT scan showing fat stranding close to the areas of diverticulosis in the left descending colon. The patient was not given any antibiotics because of all her allergies. She then followed up with the GI doctor called and it was recommended that she go back to the ER. She has not started any therapy for this. She has been feeling a little dehydrated from the lack of p.o. intake as she is doing significant amount of bowel rest. She has tolerated cephalosporins in the past. I will go ahead and send her Vantin to the pharmacy that she can use. She has also tolerated ceftriaxone in the hospital that has also been helpful for her. She does not tolerate clindamycin anymore and unfortunately she does not call tolerate the Flagyl either so we can not provide her with any anaerobic coverage. Still though [facility] has a broad spectrum coverage and should help. If her symptoms worsen though she should definitely go to the ER specially she is getting dehydrated or for abdominal comfort is worse or if she started developing fevers or chills or any other concerning symptoms. As far as her sleep apnea the patient did undergo a sleep study. This was done in [place]. It was recommended that based on her sleep apnea noted on his study that she start CPAP therapy. I did not see that they checked the end-tidal CO2 but at this point I think is reasonable for her to start CPAP on 2 L of oxygen and if she does not tolerate that if she fails CPAP we can quickly switch over to BiPAP anyway. Will go ahead and request a replacement APAP through [employer] [employer]. And therefore she can get her supplies as well. If she has a machine prior to her next appointment she can always bring it in so we can review with her. From a respiratory status she is okay she is using her oxygen with good effect. The patient continues on the Lasix as well she is taking 160 mg daily total. Because of her significant weight loss decreased p.o. intake I did have her only take half the dose for couple days in order for her to read a Barkley very and then go back to the full dose when she is able to take by mouth. 11/21/2024 the patient is here for pulmonary follow-up visit. The patient overall has been feeling better from the diverticulitis. She did complete the Vantin. She still has some on hold in case her symptoms worsened again. She will be following up with Dr. Fang soon. In the meantime respiratory status is stable. She does have bowel some dyspnea and hypoxia. She is already on high dose of diuretics. She is going to be following up a heart failure specialist. I do believe that is Jardiance may be a potential option for her. In the meantime she continues use her respiratory therapy with good effect. She continues use her oxygen did effect. She also continues use the BiPAP every night. BiPAP therapy has been affecting beneficial. She does use it for more than 4 hours a night. She is complaining of a dry mouth. I did increase the humidity a little bit. She can always increase in more from home. In the meantime her BiPAP is very old. Will request a replacement BiPAP at this time with a local [employer]. Otherwise patient follow-up in 2-3 months. If she has any issues prior to this she will call for an earlier assessment. 12/26/2024 the patient is here for sick visit. The patient had a an event at home where she was exposed to a smoke due to vinegar and also baking soda as she was trying to clean a pot. She did develop some difficulty breathing and a significant cough. She did call the office and we had increased her prednisone to 20 mg. Seems that she is getting better although she has a still barky cough. Still feels like she has a very sore trachea. Likely from respiratory dysfunction syndrome from the initial exposure to the fumes and smoke. She is having hard time sleeping having some chest discomfort. Will try some cough medication with codeine to try to alleviate her symptoms. She is going to wean down to the baseline prednisone of 5 mg. In the meantime she continues have daytime drowsiness. She has been using just oxygen though. She has had 2 sleep studies demonstrating no evidence of any significant sleep apnea. Therefore, will hold off on CPAP therapy at this time. Will go ahead and check a blood gas to see if her CO2 is elevated. If her CO2 is elevated then we have to consider treatment for chronic hypercarbic respiratory failure. The patient also has been complaining of dyspnea on exertion. Moderate severity. Will go ahead and start her on PFTs and pulmonary rehabilitation. [facility] Medical History Chronic hypercapnic respiratory failure KANDY treated with BiPAP COPD (chronic obstructive pulmonary disease) Open wound Warfarin anticoagulation Complex sleep apnea syndrome Leg pain Anemia Tachycardia DVT (deep venous thrombosis) Compression fracture of body of thoracic vertebra ASD (atrial septal defect) Pleuritic chest pain History of COVID-19 Chronic anticoagulation Hypothyroidism GERD (gastroesophageal reflux disease) Hyperlipidemia Hypertension Factor 5 Leiden mutation, heterozygous History of non-ST elevation myocardial infarction (NSTEMI) Hypoxia Anxiety PTSD (post-traumatic stress disorder) Hemoptysis Dyspnea Tracheobronchitis CLARA positive Diverticulitis Allergic bronchitis (HFpEF) heart failure with preserved ejection fraction Subarachnoid bleed Insomnia Anti-phospholipid antibody syndrome Hypogammaglobulinemia Chronic respiratory failure Arterial insufficiency of lower extremity Complex regional pain syndrome i of right lower limb Post herpetic neuralgia Pulmonary hypertension Pericardial effusion Pulmonary emboli Pleural effusion Radiation fibrosis of lung Pneumonitis Pulmonary nodules Lung cancer Surgical History History of colonoscopy History of lung surgery History of tonsillectomy History of hysterectomy S/P mitral valve clip implantation History of cardiac cath Family History Sister No problems noted. Mother Cardiovascular disease Daughter Tachycardia Other KANDY (obstructive sleep apnea) Social History (Updated 11/21/24 @ 10:44 by Gunjan Carty [facility]) Household Members: Other Housing: Senior Care Do you presently have visiting nurse or other home services: Yes (at home had MERCERIZING RANGE CONTROLLER that came to visit her) Unable to assess alcohol history related to: Unknown Alcohol intake: never Comment: stand by assist with ambulation Patient Tobacco Use Status: Never used Tobacco Second Hand Smoke Exposure: No Advance Directives Date on File: 06/15/22 service: No Current occupational status: retired Review of Systems Const Denies chills, Denies fatigue, Denies fever(s), Denies weight gain and Denies weight loss Eyes Denies change in vision ENT Denies dizziness Card Reports chest pain, Reports leg edema, Denies lightheadedness, Denies palpitations, Reports dyspnea on exertion, Denies orthopnea and Denies other Resp Reports cough, Reports pain on inspiration, Reports pain with cough, Reports dyspnea on exertion and Reports wheezing GI Denies hematochezia and Denies change in stool character Musc Denies abnormal gait, Denies muscle weakness, Denies numbness, Denies radiating pain into limb and Denies tingling Skin/Breast Reports change in pigmentation, Reports skin swelling and Reports unusual bruising Neuro Denies abnormal gait, Denies dizziness, Denies numbness and Denies tingling Psych Reports depression Endo Denies fatigue and Denies palpitations Aller/Immun Reports wheezing Physical Exam Vital Signs: Last Vital Signs Pulse 69 12/26/24 14:58 BP 112/50 L 12/26/24 14:58 Pulse Ox 97 12/26/24 14:58 Oxygen Delivery Method Nasal Cannula 12/26/24 14:58 Oxygen Flow Rate 2 12/26/24 14:58 BMI result Body Mass Index 22.8 Last Vital Signs Temp 97.7 F 06/20/22 08:00 Pulse 90 06/20/22 08:00 Resp 16 06/20/22 08:00 BP 137/60 06/20/22 08:00 Pulse Ox 93 06/20/22 08:00 O2 Del Method 06/20/22 08:00 O2 Flow Rate 2 06/20/22 08:00 FiO2 45 06/14/22 11:07 BMI result Body Mass Index 23.0 Const General: cooperative, comfortable, alert and awake Orientation/consciousness: patient oriented x3 HEENT Head: Yes atraumatic Eyes General: appearance normal, both eyes and all related structures Neck Neck: Yes trachea midline, Yes supple and Yes no JVD Chest Chest palpation & inspection: tenderness rib (right side) Resp Effort & Inspection: normal respiratory effort, no cough and No prolonged expiratory phase Auscultation: no rales, no rhonchi, no wheezes and diminished lung sounds Cardio Rate: regular rate Rhythm: regular rhythm Heart sounds: S1 normal heart sound present and S2 normal heart sound present GI Palpation (GI): Soft to palpation and Tenderness to palpation present (GI) in the LLQ Auscultation: normal bowel sounds Skin General skin exam: purpura and scars Neuro General: patient oriented x3 and no focal motor deficits Extrem Right lower extremity: edema Assessment & Plan Assessment & Plan (1) COPD (chronic obstructive pulmonary disease): Code(s): J44.9 - Chronic obstructive pulmonary disease, unspecified Category: Medical Qualifiers: COPD type: chronic bronchitis Chronic bronchitis type: simple Qualified Code(s): J41.0 - Simple chronic bronchitis (2) Chronic hypercapnic respiratory failure: Code(s): J96.12 - Chronic respiratory failure with hypercapnia Category: Medical (3) Pulmonary hypertension: Comment: severe based on RHC, moderate based on recent echo Code(s): I27.20 - Pulmonary hypertension, unspecified Category: Medical (4) Pulmonary nodules: Code(s): R91.8 - Other nonspecific abnormal finding of lung field Category: Medical (5) Chronic respiratory failure: Code(s): J96.10 - Chronic respiratory failure, unspecified whether with hypoxia or hypercapnia Category: Medical Qualifiers: Respiratory failure complication: hypoxia and hypercapnia Qualified Code(s): J96.11 - Chronic respiratory failure with hypoxia; J96.12 - Chronic respiratory failure with hypercapnia (6) Radiation fibrosis of lung: Code(s): J70.1 - Chronic and other pulmonary manifestations due to radiation Category: Medical (7) (HFpEF) heart failure with preserved ejection fraction: Code(s): I50.30 - Unspecified diastolic (congestive) heart failure Category: Medical Qualifiers: Heart failure chronicity: chronic Qualified Code(s): I50.32 - Chronic diastolic (congestive) heart failure (8) Lung cancer: Code(s): C34.90 - Malignant neoplasm of unspecified part of unspecified bronchus or lung Category: Medical Qualifiers: Laterality: left Lung location: upper lobe of lung Qualified Code(s): C34.12 - Malignant neoplasm of upper lobe, left bronchus or lung (9) Pleural effusion: Code(s): J90 - Pleural effusion, not elsewhere classified Category: Medical Plan complete prednisone taper, then, prednisone 2.5 mg QOD start cough medicine Ambien for sleep continue Advair ASHA as needed continue ASHA (xopenex) as needed CPT with acapella valve fluticasone Oxygen 2L/pulse with activity and sleep. POC Inogen G5 duiresis as tolerated Bloodwork /bloodgas PSG- 2 sleep studies without any evidence of KANDY F/U 6 weeks Orders: Orders Basic Metabolic Panel Today J41.0 - Simple chronic bronchitis, J96.12 - Chronic respiratory failure with hypercapnia Erythrocyte Sedimentation Rate Today J41.0 - Simple chronic bronchitis, J96.12 - Chronic respiratory failure with hypercapnia Pulmonary Rehab Today J41.0 - Simple chronic bronchitis, J96.12 - Chronic respiratory failure with hypercapnia Venous Blood Gas Today J41.0 - Simple chronic bronchitis, J96.12 - Chronic respiratory failure with hypercapnia Complete Blood Count Auto Diff Today J41.0 - Simple chronic bronchitis, J96.12 - Chronic respiratory failure with hypercapnia PFT pulmonary function test Today J41.0 - Simple chronic bronchitis, J96.12 - Chronic respiratory failure with hypercapnia Medications: New mupirocin 2% (Centany) 1 appl topical BID 22 grams 0RF 10 days Coding Level of Care Code Est Pt Level 5 (41213) Complex EM visit Add On G2211 Diagnoses Simple chronic bronchitis J41.0 COPD type: chronic bronchitis Chronic bronchitis type: simple Chronic hypercapnic respiratory failure J96.12 Pulmonary hypertension I27.20 Pulmonary nodules R91.8 Chronic respiratory failure with hypoxia and hypercapnia J96.11; J96.12 Respiratory failure complication: hypoxia and hypercapnia 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
[2024-12-26 14:58] VITALS: BP 112/50; PULSE 69; O2SAT 97; BMI 22.8
--- OUTSIDE RECORDS SUMMARY | 2024-12-26 16:13 | XMS_ITS | Encounter Summary ---
Author Organization [facility] Address [address] [place] [id number] Care Team Providers Care Clinical Data Management Manager Name Role Phone Caitlyn Bowie MD Primary Care Provider +1- [phone] Encounter Details Date Type Department Care Team (Late st Contact Info) Description 07/08/2020 Scanned Document [facility] Health Information Management [address] [place] [phone] External, Provider Social History Tobacco Use Types [...] Affairs [facility] [address] [facility] [address] [place], [place] [id number] Ronald Mills MD [address] [place] [address] [address] [place] [address] documented as of this encounter [...] of this encounter Care Teams Clinical Data Management Manager Relationship Specialty Start Date End Date Caitlyn Bowie MD [address] [address] PCP - General Internal Medicine 05/06/21 documented as of this encounter
== END 2024-12-26 15:36 | disposition home or self-care (01) ==
PROVIDERS: PCP Internal Medicine; Visit Provider Hospitalist
DX: J41.0 Simple chronic bronchitis (principal); J96.12 Chronic respiratory failure with hypercapnia; I27.20 Pulmonary hypertension, unspecified; R91.8 Other nonspecific abnormal finding of lung field; J96.11 Chronic respiratory failure with hypoxia; J70.1 Chronic and other pulmonary manifestations due to radiation; I50.32 Chronic diastolic (congestive) heart failure; C34.12 Malignant neoplasm of upper lobe, left bronchus or lung; J90 Pleural effusion, not elsewhere classified
CPT/HCPCS: 99215; G2211

== ENCOUNTER 2024-12-26 14:54 | Outpatient (REF) | payer MEDICARE, SELFPAY ==
[2024-12-26 16:17] LABS: MANUAL DIFF FLAG NO
[2024-12-26 16:25] LABS: Venous Blood Gas Refer to POC result
[2024-12-26 16:26] LABS: VBG pCO2 59 mmHg; VBG pH 7.47 (7.32-7.43)
[2024-12-26 16:27] LABS: VBG Base Excess 16.7 mmol/L; VBG HCO3 43 mmol/L (22-26); VBG pO2 32 mmHg
[2024-12-26 16:39] LABS: Basophils Percent Auto 0.2 % (0-2); Hematocrit 37.9 % (37.0-47.0); Hemoglobin 12.3 g/dl (12.0-16.0); Imm Gran Abs Auto 0.16 X10*3/uL (0.00-0.03); Imm Gran Pct Auto 1.4 % (0.0-0.4); Lymphocytes Absolute Auto 0.8 X10*3/uL (1.2-4.9); Lymphocytes Percent Auto 6.5 % (20-40); Mean Corpuscular HGB Conc 32.5 g/dl (31.0-35.0); Mean Corpuscular Hemoglobin 32.8 pg (27.0-33.0); Mean Corpuscular Volume 101.1 fL (80.0-98.0); Mean Platelet Volume 11.2 fL (9.4-12.3); Monocytes Absolute Auto 0.7 X10*3/uL (0.1-1.2); Monocytes Percent Auto 6.1 % (2-11); Neutrophils Absolute Auto 10.1 x10*3/uL (2.0-8.3); Neutrophils Percent Auto 85.8 % (45-73); Platelet Count 235 X10*3/uL (160-400); Red Blood Count 3.75 X10*6/uL (4.20-5.50); Red Cell Distribution Width 14.2 % (11.0-16.0); White Blood Count 11.8 X10*3/uL (4.8-10.8)
[2024-12-26 17:01] LABS: Anion Gap 14 (12-20); Blood Urea Nitrogen 30 mg/dL (9-16); Calcium 10.6 mg/dL (8.4-10.2); Carbon Dioxide 36 mmol/L (22-29); Chloride 96 mmol/L (96-108); Estimated Glomerular Filt Rate > 60; Glucose Random 116 mg/dL (60-115); Potassium 4.2 mmol/L (3.3-5.1); Sodium 142 mmol/L (135-145)
[2024-12-26 17:52] LABS: Erythrocyte Sedimentation Rate 46 MM/HR (0-20)
== END 2024-12-26 14:55 | disposition home or self-care (01) ==
LOC: HO.LAB 14:54
PROVIDERS: Absent Provider Internal Medicine Cardiovascular Disease; PCP Internal Medicine; Visit Provider Hospitalist
DX: J41.0 Simple chronic bronchitis (principal); J96.12 Chronic respiratory failure with hypercapnia; I50.32 Chronic diastolic (congestive) heart failure; C34.12 Malignant neoplasm of upper lobe, left bronchus or lung
CPT/HCPCS: 36415; 80048; 82803; 85025; 85652; 99212

== ENCOUNTER 2024-12-27 10:54 | Outpatient (REF) | payer MEDICARE, SELFPAY ==
--- NOTE | 2024-12-27 10:58 | PFT_ITS ---
Indication: COPD Spirometry FEV1 to FVC 67%; FEV1 1.1 L; FVC 1.64 L. No significant response to bronchodilators noted. Lung Volumes Total lung capacity 65% predicted Diffusion Capacity DLCO 38% predicted Comparisons None Interpretation There is an obstructive ventilatory defect consistent with moderate COPD. No significant response to bronchodilators noted. In addition to that the patient does have a restrictive ventilatory defect consistent with moderate restrictive lung disease secondary to her pulmonary fibrosis. The patient also has a severe diffusion impairment secondary to the above. Clinical correlation warranted. MTDD
--- OUTSIDE RECORDS SUMMARY | 2024-12-27 11:18 | XMS_ITS | Clinical Summary ---
Author Organization [facility] Address [address] [place] [address] Phone Care Team Providers Care Occupational Therapist Name Role Phone Caitlyn Bowie MD Primary Care Provider +1- [phone] Allergies Active Allergy Reactions Criticality Noted Date [...] MG/5ML Syrup Take by mouth. - Oral Active epinephrine (EPIPEN 2-KORI [...] Take 50 mg by mouth daily. Active traZODone (DESYREL) 100 mg tablet Take [...] 60 each 11 5 08/23/19 26 Active rosuvastatin (CRESTOR) 10 mg tablet Take 1 tablet (10 mg total) by mouth 3 (three) times a week. 4 Active montelukast (SINGULAIR) 10 mg tablet Take 1 Tab by mouth at bedtime. 8 12/11/19 25 Discontin ued(Thera py completed ) saccharomyces boulardii (FLORASTOR) 250 mg capsule 12/11/19 25 Discontin ued(Thera py completed ) predniSONE (DELTASONE) 2.5 mg tablet Take 1 tablet (2.5 mg total) by mouth 1 (one) time each day. 12/12/19 25 Discontin ued(Thera py completed ) Active [...] 20 mg as needed by her previous wet end supervisor which she has taken sporadically. I have asked her to take this daily to see if this improves her symptoms and she has a follow-up appointment with Dr. Shah on September 16 which she will keep. We also had a long conversation regarding the fact that she is seeing 3 different wet end supervisor for the same problems. We informed her [...] continues to see Dr. Avalos or her wet end supervisor at [facility]. She verbalized understanding of this and [...] right lower leg 03/06/2019 Antiphospholipid antibody syndrome (CMS/HCC V24) 12/24/2018 Adrenal insufficiency ([facility] V24) 08/23/2018 Allergic rhinitis 08/23/2018 Hyperparathyroidism ([facility] V24) 08/23/2018 MRSA infection 08/23/2018 Overview (05/16/2024): 06/2009, s/p thoracotomy infection Osteoarthritis 08/23/2018 Radiation-induced pulmonary fibrosis ([facility] V2 4) 11/13/2017 Bronchiectasis ([facility] V24, [facility] V28) 2017 Leg edema 08/08/2017 Restrictive lung disease 08/08/2017 Chronic obstructive pulmonar y disease ([facility] V24, [facility] V28) 04/13/2017 Fibromyalgia 04/13/2017 Congestive heart failure ([facility] V24, [facility] V 28) 04/04/2017 Heterozygous factor V Leiden mutation ([facility] V 24) 04/04/2017 Obstructive sleep apnea syndrome 04/04/2017 Overview (05/16/2024): CPAP Pleural effusion 04/04/2017 Pulmonary hypertension ([facility] V24, [facility] V28 ) 04/04/2017 Multiple pulmonary nodules [...] Encounters Date Type Department Care Team Description 12/23/2024 9:00 AM EDT Office Visit [facility] [place] [address] [place] [address] Jerry Li MD Complex regional pain syndrome type 1 of both lower extremities (Primary Dx); Leg swelling 12/10/2024 2:43 PM EDT - 12/10/2024 4:57 PM EDT Emergency [facility] Emergency [address] [place] [phone] Head injury, initial encounter (Primary Dx) Discharge Disposition: Home or Self Care 12/10/2024 1:30 PM EDT Office Visit [facility] [address] [facility] [address] [place] [address] Shirley Chaidez PA 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) 11/04/2024 Telephone Gastroenterology - [address] [facility] [address] [facility] [address] [place] [phone] Tim Gomes MD Provider Call Back 10/10/2024 1:00 PM EDT Office Visit [facility] [address] [facility] [address] [place] [phone] Ayanna Jaffe MD 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); Gait abnormality; Memory change; Anxiety; Blurry vision 10/09/2024 12:45 PM EDT Treatment [facility] Speech Therapy [address] [facility] [address] [place] [address] Daphne Alarcon, [employer] WR[employer] 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); Cognitive communication disorder; Unsp symptoms and signs w cognitive functions and awareness from Last 3 Months Immunizations Name Administration [...] PROCEDURE: HISTORICAL TONSILLECTOMY OTHER SURGICAL HISTORY PROCEDURE: CO RMVL LUNG XCP TOT PNEUMONECTOMY SLEEVE LOBECTOMY; [...] pathology report UPPER GASTROINTESTINAL ENDOSCOPY 05/03/2015 PROCEDURE: CO UPPER GI ENDOSCOPY PERFORMED MITRAL CLIP PROCEDURE Medical History Medical History Date Comments Akathisia 04/15/2013 DX:Akathisia Anxiety 12/07/2016 DX:Anxiety Bronchiectasis (CMS/HCC V24, CMS/HCC V28) 08/08/2017 DX:Bronchiectasis (HCC) Cataract [...] dori pect Heterozygous factor V Leiden mutation ([facility]/HCC V24) 04/04/2017 DX:Heterozygous factor V Lei den [...] syndrome 02/18/2013 DX:Postc oncussion syndrome Pulmonary hypertension ([facility] V24, [facility] V28) 04/04/2017 DX:Pulmonary hypertension (H CC) Restrictive lung disease 08/08/2017 DX:Rest rictive lung disease 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 DX:Zinc deficien cy Obstructive sleep apnea syndrome 04/04/2017 DX:Obstructive sleep apnea syndrome; COMMENT: CPAP Radiation-induced pulmonary fibrosis ([facility] V24) 11/13/2017 DX:Radiation-induced pulmona ry fibrosis (HCC) Adrenal insufficiency ([facility] V24) 08/23/2018 DX:Adrenal insufficiency (HCC) Hyperparathyroidism ([facility] V24) 08/23/2018 DX:Hyperparathyroidism (HCC) Osteoporosis 11/17/2016 DX:Osteoporosis [...] Mx LLL resection, Chemo, RT, Cisplatin, Vinorelbine [phone] Antiphospholipid antibody sy ndrome ([facility] V24) 12/24/2018 DX:Antiphospholipid antibody syndrome (HCC) 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 Hyperparathyroidism ([facility] V24) DX:Hyperparathyroidism (HCC) Adrenal insufficiency ([facility] V24) DX:Adrenal insufficiency (HCC) Family History Medical [...] Sign Reading Time Taken Comments Blood Pressure 120/60 12/23/2024 9:07 AM EDT Pulse 72 12/23/2024 9:07 AM EDT Temperature 36.2 C (97.2 F) 12/10/2024 3:08 PM EDT Respiratory Rate 16 12/23/2024 9:07 AM EDT Oxygen Saturation 99% 12/10/2024 3:08 PM EDT Inhaled Oxygen Concentration - - Weight 58.5 kg (129 lb) 12/23/2024 9:07 AM EDT Height 160 cm (5' 3 ) 12/23/2024 9:07 AM EDT Body Mass Index 22.85 12/23/2024 9:07 AM EDT Plan of Treatment Upcoming Encounters Date Type Department Care Team (Late st Contact Info) Description 02/21/2025 4:30 PM EDT Office Visit [facility] [address] [facility] [address] [place] [address] Shirley Chaidez PA [address] [facility] [address] [place] [address] Health Maintenance Due Date Last Done Comments [...] Name Priority Date/Time Associated Diagnosis Comments CT HEAD WO CONTRAST STAT 12/10/2024 3 :47 PM EDT COMPREHENSIVE METABOLIC PANEL STAT 06/15/2024 1:26 PM EST from Last 3 Months or Most Recently Relevant to Health Maintenance Results * CT Head wo Contrast (12/10/2024 3:47 PM EDT) Anatomical Region Laterality Modality Head and Neck Computed Tomogra phy 12/10/2024 4:10 PM EDT Impressions 12/10/2024 4:12 PM EDT NO ACUTE INTRACRANIAL ABNORMALITY. -------- FINAL REPORT -------- Dictated By: Virginia Che Dictated Date: 12/10/2024 16:10 ET Assigned Physician: Virginia Che Reviewed and Electronically Signed By: Virginia Che Signed Date: 12/10/2024 16:12 ET Workstation ID: [id number] Transcribed By: Self Edit Transcribed Date: 12/10/2024 16:10 ET Narrative 12/10/2024 4:12 PM EDT PROCEDURE: HEAD CT INDICATION: trauma, on coumadin TECHNIQUE: CT of the head without intravenous contrast. Multiplanar reformats. The examination was performed utilizing dose reduction techniques. Total DLP 9:30 COMPARISON: No priors available. FINDINGS: No acute territorial infarct, mass effect, or intracranial hemorrhage. No significant white matter disease No hydrocephalus. Visualized paranasal sinuses are clear. Mastoid air cells are clear. No calvarial fracture. Bilateral lens implants. Stable small lesion in the superior left orbit. Procedure Note Virginia Che MD - 12/10/2024 PROCEDURE: HEAD CT INDICATION: trauma, on coumadin TECHNIQUE: CT of the head without intravenous contrast. Multiplanarreformats. The examination was performed utilizing dose reductiontechniques. Total DLP 9:30 COMPARISON: No priors available. FINDINGS: No acute territorial infarct, mass effect, or intracranial hemorrhage. No significant white matter disease No hydrocephalus. Visualized paranasal sinuses are clear. Mastoid air cells are clear. No calvarial fracture. Bilateral lens implants. Stable small lesion inthe superior left orbit. IMPRESSION: NO ACUTE INTRACRANIAL ABNORMALITY. -------- FINAL REPORT -------- Dictated By: Virginia Che Dictated Date: 12/10/2024 16:10 ET Assigned Physician: Virginia Che Reviewed and Electronically Signed By: Virginia Che Signed Date: 12/10/2024 16:12 ET Workstation ID: [id number] Transcribed By: Self Edit Transcribed Date: 12/10/2024 16:10 ET Kelly KAPOOR IM CT PROCEDURES Final Resul t * (ABNORMAL) Comprehensive metabolic panel (06/15/2024 1:26 PM EST) Sodium 140 133 - 145 mmol/L LAB CHEMISTRY METHOD 06/15/2024 2:10 PM [facility] Potassium 4.7 3.5 - 5.5 mmol/L LAB CHEMISTRY METHOD 06/15/2024 2:10 PM [facility] Chloride 102 96 - 110 mmol/L LAB CHEMISTRY METHOD 06/15/2024 2:10 PM [facility] CO2 34(H) 21 - 32 mmol/L LAB CHEMISTRY METHOD 06/15/2024 2:10 PM [facility] Anion Gap 4 3 - 11 LAB CHEMISTRY METHOD 06/15/2024 2:10 PM [facility] Glucose 95 70 - 100 mg/dL LAB CHEMISTRY METHOD 06/15/2024 2:10 PM [facility] BUN 29(H) 5 - 25 mg/dL LAB CHEMISTRY METHOD 06/15/2024 2:10 PM [facility] Creatinine 0.95 0.50 - 1.10 mg/dL LAB CHEMISTRY METHOD 06/15/2024 2:10 PM [facility] eGFR 60 >=60 mL/min/1. 73m2 LAB CHEMISTRY METHOD 06/15/2024 2:10 PM [facility] Comment:Calculation based on the Chronic Kidney Disease Epidemiology Collaboration (CKD-EPI) equation refit without adjustment for race. BUN/Creatinine Ratio 30.5 LAB CHEMISTRY METHOD 06/15/2024 2:10 PM [facility] Calcium 10.1 8.5 - 10.5 mg/dL LAB CHEMISTRY METHOD 06/15/2024 2:10 PM [facility] AST (SGOT) 35 10 - 42 unit/L LAB CHEMISTRY METHOD 06/15/2024 2:10 PM [facility] ALT (SGPT) 39 10 - 60 unit/L LAB CHEMISTRY METHOD 06/15/2024 2:10 PM EST [facility] Alkaline Phosphatase 83 42 - 121 unit/L LAB CHEMISTRY METHOD 06/15/2024 2:10 PM [facility] Total Protein 6.4 6.0 - 8.0 g/dL LAB CHEMISTRY METHOD 06/15/2024 2:10 PM EST [facility] Albumin 3.3 3.2 - 5.0 g/dL LAB CHEMISTRY METHOD 06/15/2024 2:10 PM [facility] Total Bilirubin 0.4 0.0 - 1.4 mg/dL LAB CHEMISTRY METHOD 06/15/2024 2:10 PM [facility] Blood Venous blood specimen / Unknown Venipuncture / Unknown 06/15/2024 1:26 PM EST 06/15/2024 1:32 PM EST us Cinda Cruz MD LAB BLOOD ORDERABLES Final Resul t [facility] [address] [place] [address], from Last 3 Months or Most Recently Relevant to Health Maintenance Insurance [facility] Advance Directives Documents on File Type Date Recorded Patient Hand Sole Sewer Expl anation Health Care Decision (hx) 10/18/2013 [...] (hx) 10/04/2013 AD LACEY DIRECTIVE Care Teams Occupational Therapist Relationship Specialty Start Date End Date Caitlyn Bowie MD [address] [place] [id number] PCP - General Internal Medicine 12/10/24
[2024-12-27 11:59] VITALS: PULSE 68; O2SAT 97
== END 2024-12-27 10:55 | disposition home or self-care (01) ==
LOC: HO.RESP 10:54
PROVIDERS: PCP Internal Medicine; Visit Provider Hospitalist
DX: J41.0 Simple chronic bronchitis (principal); J96.12 Chronic respiratory failure with hypercapnia
CPT/HCPCS: 94010; 94640; 94727; 94729

== ENCOUNTER → 2024-12-27 10:58 | Outpatient (BNV) | payer MEDICARE, SELFPAY | PROVIDERS: PCP Internal Medicine; Visit Provider Hospitalist | DX: J44.9 Chronic obstructive pulmonary disease, unspecified (principal) | CPT/HCPCS: 94060; 94727; 94729 ==

== ENCOUNTER 2025-01-02 13:01 | Outpatient (AMB) | payer MEDICARE, SELFPAY ==
--- NOTE | 2025-01-02 13:04 | MHC.OFFVIS ---
Vital Signs 01/02/25 13:05 Height 5 ft 3 in BMI Reason not done Patient refused/unable BP 104/56 L Blood Pressure Location Lt brachial Position Sitting Pulse 87 Pulse Source Pulse Oximeter Pulse Oximetry (%) 98 Oxygen Delivery Method Nasal Cannula Oxygen Flow Rate 2 Intake Visit Reasons: Dyspnea Director Of Automation Required: No Accompanied by: Self / Same As Patient Allergies morphine Allergy (Severe, Verified 01/02/25 13:07) Itching avocado (AVOCADO) Allergy (Mild, Verified 01/02/25 13:07) ITCHY THROAT, RASH azithromycin (AZITHROMYCIN) Allergy (Mild, Verified 01/02/25 13:07) ITCHY THROAT, RASH barium iodide (BARIUM IODIDE) Allergy (Mild, Verified 01/02/25 13:07) ITCHY THROAT, RASH barium sulfate Allergy (Mild, Verified 01/02/25 13:07) Itch bee pollen (BEE STINGS) Allergy (Mild, Verified 01/02/25 13:07) ITCHY THROAT, RASH ciprofloxacin (From CIPRO) Allergy (Mild, Verified 01/02/25 13:07) ITCHY THROAT, RASH clarithromycin (From BIAXIN) Allergy (Mild, Verified 01/02/25 13:07) ITCHY THROAT, RASH diatrizoate meglumine (From GASTROGRAFIN) Allergy (Mild, Verified 01/02/25 13:07) ITCHY THROAT, RASH diatrizoate sodium (From GASTROGRAFIN) Allergy (Mild, Verified 01/02/25 13:07) ITCHY THROAT, RASH diclofenac (From VOLTAREN) Allergy (Mild, Verified 01/02/25 13:07) ITCHY THROAT, RASH erythromycin base (ERYTHROMYCIN BASE) Allergy (Mild, Verified 01/02/25 13:07) ITCHY THROAT, RASH gentamicin (GENTAMICIN) Allergy (Mild, Verified 01/02/25 13:07) ITCHY THROAT, RASH Iodinated Contrast Media (IVP DYE) Allergy (Mild, Verified 01/02/25 13:07) ITCHY THROAT, RASH levofloxacin (From LEVAQUIN) Allergy (Mild, Verified 01/02/25 13:07) ITCHY THROAT, RASH metronidazole (From FLAGYL) Allergy (Mild, Verified 01/02/25 13:07) ITCHY THROAT, RASH moxifloxacin (From AVELOX) Allergy (Mild, Verified 01/02/25 13:07) ITCHY THROAT, RASH Penicillins (PENICILLINS) Allergy (Mild, Verified 01/02/25 13:07) ITCHY THROAT, RASH shrimp (SHRIMP) Allergy (Mild, Verified 01/02/25 13:07) ITCHY THROAT, RASH Sulfa (Sulfonamide Antibiotics) (SULFA (SULFONAMIDE ANTIBIOTICS)) Allergy (Mild, Verified 01/02/25 13:07) ITCHY THROAT, RASH vancomycin (VANCOMYCIN) Allergy (Mild, Verified 01/02/25 13:07) ITCHY THROAT, RASH clindamycin Adverse Reaction (Intermediate, Verified 01/02/25 13:07) Unknown HPI Comments Details: The patient is a 79 y/o woman with a complicated history which includes: COPD, KANDY, pulmonary HTN, history pulmonary emboli on chronic anticoagulation, lung CA Stage IIIA s/o neoadjuvant chemoradiation and Left upper lobe lobectomy. She did have a CT scan today that I personally reviewed. Has not been personally read by the radiologist. Based on my reading she has some pulmonary nodules some that are new 4 mm in the right major fissure area. Other nodules are stable. Other post operative and pulmonary fibrotic changes stable. The patient should get a CT scan in 6 months. Also to note, she did not tolerate the Incruse nor budesonide. Will consider Daliresp. She was admitted to [facility] with diverticulitis. She was placed on IV antibiotics but she left against medical advice because she did not like the antibiotic options. In the meantime she was having some issues with coughing up some blood. She is also concerned because on her visit to [facility] she did have a CT scan of the chest and she was told that she had significant scarring of her lungs in addition to lung volume loss. I have not looked at the CT scan back in reassured her that she has had this radiation fibrosis for long time and volume loss due to the scarring was present before. We did review her perfusion scan demonstrating no defects to suggest any blood clots. Interestingly in the quantitative study the patient did have 81% of the blood flow going to her right lung and 18% going to the left. This is likely due to her previous surgery and also radiation changes. 03/21/2024 the patient is here for pulmonary follow-up visit. She has multiple complaints. She is entirely seems any physicians. She is still dealing with the wound getting plenty of wound care 4. Still getting debrided. In addition to that she has had a productive cough. The phlegm is now clear but thick difficult to expectorate. Sometimes feel like it is dripping for nasal passages down like a postnasal drip. The patient is currently on cefpodoxime. She is finishing a course. We did try to get sputum in the office but she was not able to do so. I did give her a cup in order for her to be doing her own time. We will be able to look for both Gram stain culture and also AFB. The patient also had a chest x-ray which I personally reviewed and also compared to her previous x-rays. It appears that she has worsening left-sided pleural effusion. Hard to know that is long as very affected on that side there is any active disease otherwise. She has not had a CT scan since October. In view of the worsening chest x-ray in the ongoing symptoms will go ahead and request a CT scan time. The patient also could try some Mucomyst. I will send some to the pharmacy to see if we can get it. She understands that is hard to get. When she gets she can use it twice a day for CPT to see if this helps clear the secretions that gets that within her airways. In addition to that the patient has been using the BiPAP. The BiPAP therapy has been affecting beneficial. She does use it for more than 4 hours a night. However, she does have a component of hypercarbia and she would do better with the noninvasive ventilator. Currently she is set up for sleep study at [facility] coming up. Hopefully they can do a split study and try titrate her figure out what her best form of therapy it is. At some point though if she continues on the BiPAP will need to replace it because his older than 5 years. 05/09/2024 the patient is here for a pulmonary follow-up visit. Overall she is doing well from a respiratory status. She recently did have a CT scan of the chest that at [facility]. I did personally reviewed. Appears to be stable. She does have the chronic effusion in the parenchymal disease. This is all stable. She does have a small compression fracture though. Has significant osteopenia. She did have blood work with her aircraft tool maker recently. Her antiphospholipid antibodies and anticardiolipin antibodies continue antiphospholipid antibody elevated. Her homocystine that was also elevated. She is going to start folic acid. She is concerned because her D-dimer was significantly elevated. Although she did have trauma to the legs. She had lower extremity Dopplers which were negative for any clots which is reassuring. Previous he Q scans have been reassuring. Will go ahead and repeat her blood test to see make sure that the D-dimer is coming down. If the D-dimer continues to be elevated then will do additional testing for potential occult clots. She continues on the Coumadin with a goal level 1.5-2. I do believe that she should stay on it based on the fact that she has significant symptoms and coming off the medicine may result in more security of the results specially since the Coumadin has been working for her chronic thromboembolic disease. From the wound standpoint the patient is doing better from the wound healing on her right lower extremity although she recently had another the trauma to the left. She is also dealing with a boil or a growth on the perineal area. She is going to be seeing hand spinner for that. 08/08/2024 the patient is here for a pulmonary follow-up visit. Overall she is doing okay. She does have issues with her balance and also issues with dysuria. The patient has been also having issues with her oxygen that was at nighttime. She has been noticing worsening hypoxia. She has been using her BiPAP 16/10. She does use it with her oxygen. The patient did have a download recently and her AHI is up to 10 cm. She also had a blood gas demonstrating elevations in her CO2. Therefore, will go ahead and increase her BiPAP settings from 16-10 to 18/12. This BiPAP is about 6 years old now. The patient likely needs a replacement. Will go ahead and refer her to sleep in [place] in order for her to undergo a split study in order to get her a new PAP therapy. During the titration study component will be helpful to see if she is better off with AVAPS versus BiPAP. We did try her underlying AVAP but she could not tolerate it. She followed she did not have enough teaching. Therefore, will go ahead and increase the pressures of her BiPAP monitor her AHI and recheck a venous gas while we wait for her to see a certified sleep specialist in [place]. In the meantime she continues with her diuresis. Will go ahead and check a blood work. The patient also had a CT scan of the chest back in 03/29/2024 demonstrating no acute disease just a chronic changes. Will plan to talk about any additional imaging during her next visit. She will continue with current respiratory regimen for now. 09/11/2024 the patient is here for hospital follow-up visit. Apparently she was in the ER with worsening shortness of breath and cough. She was at [facility]. There she did have blood work. Her brain atretic peptide was significantly elevated at 100. She also did have a CT scan of the chest which I personally reviewed. She does have just chronic findings which include her radiation fibrosis decreased lung volume on the left along with the small pleural effusion on the left with the heart shifted Leftward as well volume loss. She was diagnosed with bronchitis and the patient was discharged. We did review further blood work and her sedimentation rate has been climbing slowly now at 51. in addition to that she does have a history of positive CLARA and now she is complaining of some pleuritic chest discomfort bringing up the question of underlying connective tissue disease resulting in some pleuritis. In addition to that she has been feeling episodes of increased heart rate and shortness of breath. I suspect that is likely a pulmonary vascular component. Her last echocardiogram demonstrating moderate degree of pulmonary hypertension. Unfortunately, she did not tolerate pulmonary vasodilators because if the significant amount of increase in the volume to the left ventricle then ultimately resulting in congestive heart failure. Therefore hold off on that. The patient is also anxious. She is not sleeping well. She feels that she is going to fall asleep and not wake up. She is willing to try small dose of Ambien. This will help her fall asleep and I explained to her that is not going to suppress her respiratory drive. We also did look at her blood gas that she had initially when she showed up and she had a severe case of respiratory alkalosis and she was able to breathe down her pCO2 down to 24 which is pretty significant. In addition to that she is willing to try small dose of Plaquenil to treat her for underlying pleuritis and pain and see if this can provide some relief as we repeat her blood work. She will be following up with Hematology. 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 I did print out the blood work so she can talk to her aircraft tool maker in the meantime will go ahead and repeat her blood work as well. She continues to be on high dose of diuretics. Volume status seems to be better at this time. She continues use the oxygen with good effect. Sometimes her oxygen drops because of her cardiopulmonary disease. She does not have much pulmonary reserve. In with the pulmonary hypertension along with diastolic dysfunction this quit quickly result in hypoxia. She can take breaks though when she is sitting as lungs are oxygens above 90%. 11/04/2024 the patient is here for a pulmonary follow-up visit. Since we last spoke she started developing abdominal pain. She did go to the ER where she was diagnosed with diverticulitis based on a CAT scan showing fat stranding close to the areas of diverticulosis in the left descending colon. The patient was not given any antibiotics because of all her allergies. She then followed up with the GI doctor called and it was recommended that she go back to the ER. She has not started any therapy for this. She has been feeling a little dehydrated from the lack of p.o. intake as she is doing significant amount of bowel rest. She has tolerated cephalosporins in the past. I will go ahead and send her Vantin to the pharmacy that she can use. She has also tolerated ceftriaxone in the hospital that has also been helpful for her. She does not tolerate clindamycin anymore and unfortunately she does not call tolerate the Flagyl either so we can not provide her with any anaerobic coverage. Still though Vantin has a broad spectrum coverage and should help. If her symptoms worsen though she should definitely go to the ER specially she is getting dehydrated or for abdominal comfort is worse or if she started developing fevers or chills or any other concerning symptoms. As far as her sleep apnea the patient did undergo a sleep study. This was done in [place]. It was recommended that based on her sleep apnea noted on his study that she start CPAP therapy. I did not see that they checked the end-tidal CO2 but at this point I think is reasonable for her to start CPAP on 2 L of oxygen and if she does not tolerate that if she fails CPAP we can quickly switch over to BiPAP anyway. Will go ahead and request a replacement APAP through [employer], [employer]. And therefore she can get her supplies as well. If she has a machine prior to her next appointment she can always bring it in so we can review with her. From a respiratory status she is okay she is using her oxygen with good effect. The patient continues on the Lasix as well she is taking 160 mg daily total. Because of her significant weight loss decreased p.o. intake I did have her only take half the dose for couple days in order for her to read a Barkley very and then go back to the full dose when she is able to take by mouth. 11/21/2024 the patient is here for pulmonary follow-up visit. The patient overall has been feeling better from the diverticulitis. She did complete the Vantin. She still has some on hold in case her symptoms worsened again. She will be following up with Dr. Fang soon. In the meantime respiratory status is stable. She does have bowel some dyspnea and hypoxia. She is already on high dose of diuretics. She is going to be following up a heart failure specialist. I do believe that is Jardiance may be a potential option for her. In the meantime she continues use her respiratory therapy with good effect. She continues use her oxygen did effect. She also continues use the BiPAP every night. BiPAP therapy has been affecting beneficial. She does use it for more than 4 hours a night. She is complaining of a dry mouth. I did increase the humidity a little bit. She can always increase in more from home. In the meantime her BiPAP is very old. Will request a replacement BiPAP at this time with a local [employer], [facility]. Otherwise patient follow-up in 2-3 months. If she has any issues prior to this she will call for an earlier assessment. 12/26/2024 the patient is here for sick visit. The patient had a an event at home where she was exposed to a smoke due to vinegar and also baking soda as she was trying to clean a pot. She did develop some difficulty breathing and a significant cough. She did call the office and we had increased her prednisone to 20 mg. Seems that she is getting better although she has a still barky cough. Still feels like she has a very sore trachea. Likely from respiratory dysfunction syndrome from the initial exposure to the fumes and smoke. She is having hard time sleeping having some chest discomfort. Will try some cough medication with codeine to try to alleviate her symptoms. She is going to wean down to the baseline prednisone of 5 mg. In the meantime she continues have daytime drowsiness. She has been using just oxygen though. She has had 2 sleep studies demonstrating no evidence of any significant sleep apnea. Therefore, will hold off on CPAP therapy at this time. Will go ahead and check a blood gas to see if her CO2 is elevated. If her CO2 is elevated then we have to consider treatment for chronic hypercarbic respiratory failure. The patient also has been complaining of dyspnea on exertion. Moderate severity. Will go ahead and start her on PFTs and pulmonary rehabilitation. 01/02/2025 the patient is here for a pulmonary follow-up visit. The patient has been using the BiPAP. The BiPAP therapy appears to be affecting beneficial by though she is swallowing a lot of air and getting some bloating. I did decrease the pressures were 18/12 to 16/8. She also had a blood gas demonstrating a pCO2 of 59 mmHg. The patient therefore benefits from the BiPAP. The machine now is older and needs to be replaced. We will go ahead and request an overnight oximetry to see if we can have her qualify for BiPAP again with [facility]. Otherwise we may have to stay with [facility] about getting a replacement BiPAP through them. The patient did have pulmonary function studies and I did personally reviewed him. Appears to have interval worsening overall with now moderate obstruction consistent with moderate COPD and also moderate restrictive ventilatory defect which is also worse. In addition to the severe diffusion impairment likely secondary to the above findings and her underlying pulmonary vascular disease. This all explained the need for unconfirmed Ingrid for the oxygen supplementation. She continues to use a nebulizer. Her machine is no longer working correctly therefore we will request a replacement. And I do feel strongly about her performing pulmonary rehabilitation. In the meantime she did have a twisting of her ankle and she is having some right ankle pain and bruising so therefore will have her get an x-ray of that before she starts rehab. [facility] Medical History (Updated 01/02/25 @ 13:28 by Henry Kelly MD) Ankle pain Chronic hypercapnic respiratory failure KANDY treated with BiPAP COPD (chronic obstructive pulmonary disease) Open wound Warfarin anticoagulation Complex sleep apnea syndrome Leg pain Anemia Tachycardia DVT (deep venous thrombosis) Compression fracture of body of thoracic vertebra ASD (atrial septal defect) Pleuritic chest pain History of COVID-19 Chronic anticoagulation Hypothyroidism GERD (gastroesophageal reflux disease) Hyperlipidemia Hypertension Factor 5 Leiden mutation, heterozygous History of non-ST elevation myocardial infarction (NSTEMI) Hypoxia Anxiety PTSD (post-traumatic stress disorder) Hemoptysis Dyspnea Tracheobronchitis CLARA positive Diverticulitis Allergic bronchitis (HFpEF) heart failure with preserved ejection fraction Subarachnoid bleed Insomnia Anti-phospholipid antibody syndrome Hypogammaglobulinemia Chronic respiratory failure Arterial insufficiency of lower extremity Complex regional pain syndrome i of right lower limb Post herpetic neuralgia Pulmonary hypertension Pericardial effusion Pulmonary emboli Pleural effusion Radiation fibrosis of lung Pneumonitis Pulmonary nodules Lung cancer Surgical History History of colonoscopy History of lung surgery History of tonsillectomy History of hysterectomy S/P mitral valve clip implantation History of cardiac cath Family History Sister No problems noted. Mother Cardiovascular disease Daughter Tachycardia Other KANDY (obstructive sleep apnea) Social History Household Members: Other Housing: Alf Do you presently have visiting nurse or other home services: Yes (at home had [employer] that came to visit her) Unable to assess alcohol history related to: Unknown Alcohol intake: never Comment: stand by assist with ambulation Patient Tobacco Use Status: Never used Tobacco Second Hand Smoke Exposure: No Advance Directives Date on File: 06/15/22 service: No Current occupational status: retired Review of Systems Const Denies chills, Denies fatigue, Denies fever(s), Denies weight gain and Denies weight loss Eyes Denies change in vision ENT Denies dizziness Card Reports chest pain, Reports leg edema, Denies lightheadedness, Denies palpitations, Reports dyspnea on exertion, Denies orthopnea and Denies other Resp Reports cough, Reports pain on inspiration, Reports pain with cough, Reports dyspnea on exertion and Reports wheezing GI Denies hematochezia and Denies change in stool character Musc Denies abnormal gait, Denies muscle weakness, Denies numbness, Denies radiating pain into limb and Denies tingling Skin/Breast Reports change in pigmentation, Reports skin swelling and Reports unusual bruising Neuro Denies abnormal gait, Denies dizziness, Denies numbness and Denies tingling Psych Reports depression Endo Denies fatigue and Denies palpitations Aller/Immun Reports wheezing Physical Exam Vital Signs: Last Vital Signs Pulse 87 01/02/25 13:05 BP 104/56 L 01/02/25 13:05 Pulse Ox 98 01/02/25 13:05 Oxygen Delivery Method Nasal Cannula 01/02/25 13:05 Oxygen Flow Rate 2 01/02/25 13:05 Last Vital Signs Temp 97.7 F 06/20/22 08:00 Pulse 90 06/20/22 08:00 Resp 16 06/20/22 08:00 BP 137/60 06/20/22 08:00 Pulse Ox 93 06/20/22 08:00 O2 Del Method 06/20/22 08:00 O2 Flow Rate 2 06/20/22 08:00 FiO2 45 06/14/22 11:07 BMI result Body Mass Index 23.0 Const General: cooperative, comfortable, alert and awake Orientation/consciousness: patient oriented x3 HEENT Head: Yes atraumatic Eyes General: appearance normal, both eyes and all related structures Neck Neck: Yes trachea midline, Yes supple and Yes no JVD Chest Chest palpation & inspection: tenderness rib (right side) Resp Effort & Inspection: normal respiratory effort, no cough and No prolonged expiratory phase Auscultation: no rales, no rhonchi, no wheezes and diminished lung sounds Cardio Rate: regular rate Rhythm: regular rhythm Heart sounds: S1 normal heart sound present and S2 normal heart sound present GI Palpation (GI): Soft to palpation and Tenderness to palpation present (GI) in the LLQ Auscultation: normal bowel sounds Skin General skin exam: purpura and scars Neuro General: patient oriented x3 and no focal motor deficits Extrem Right lower extremity: edema Assessment & Plan Assessment & Plan (1) COPD (chronic obstructive pulmonary disease): Code(s): J44.9 - Chronic obstructive pulmonary disease, unspecified Category: Medical Qualifiers: COPD type: chronic bronchitis Chronic bronchitis type: simple Qualified Code(s): J41.0 - Simple chronic bronchitis (2) Chronic hypercapnic respiratory failure: Code(s): J96.12 - Chronic respiratory failure with hypercapnia Category: Medical (3) Pulmonary hypertension: Comment: severe based on RHC, moderate based on recent echo Code(s): I27.20 - Pulmonary hypertension, unspecified Category: Medical (4) Pulmonary nodules: Code(s): R91.8 - Other nonspecific abnormal finding of lung field Category: Medical (5) Chronic respiratory failure: Code(s): J96.10 - Chronic respiratory failure, unspecified whether with hypoxia or hypercapnia Category: Medical Qualifiers: Respiratory failure complication: hypoxia and hypercapnia Qualified Code(s): J96.11 - Chronic respiratory failure with hypoxia; J96.12 - Chronic respiratory failure with hypercapnia (6) Radiation fibrosis of lung: Code(s): J70.1 - Chronic and other pulmonary manifestations due to radiation Category: Medical (7) (HFpEF) heart failure with preserved ejection fraction: Code(s): I50.30 - Unspecified diastolic (congestive) heart failure Category: Medical Qualifiers: Heart failure chronicity: chronic Qualified Code(s): I50.32 - Chronic diastolic (congestive) heart failure (8) Lung cancer: Code(s): C34.90 - Malignant neoplasm of unspecified part of unspecified bronchus or lung Category: Medical Qualifiers: Laterality: left Lung location: upper lobe of lung Qualified Code(s): C34.12 - Malignant neoplasm of upper lobe, left bronchus or lung (9) Pleural effusion: Code(s): J90 - Pleural effusion, not elsewhere classified Category: Medical Plan complete prednisone taper, then, prednisone 2.5 mg QOD start cough medicine Ambien for sleep continue Advair ASHA as needed continue ASHA (xopenex) as needed CPT with acapella valve fluticasone Oxygen 2L/pulse with activity and sleep. POC Inogen G5 duiresis as tolerated continue BIPAP decreased pressures 18/12 to 16/8 PSG- 2 sleep studies without any evidence of KANDY start Ohtuvayre start Pulmonary rehab F/U 6 weeks Orders: Orders XR ankle RT min 3V Today M25.579 - Pain in unspecified ankle and joints of unspecified foot Overnight Pulse Oximetry Today J41.0 - Simple chronic bronchitis, J96.12 - Chronic respiratory failure with hypercapnia Coding Level of Care Code Est Pt Level 5 (74123) Complex EM visit Add On G2211 Diagnoses Simple chronic bronchitis J41.0 COPD type: chronic bronchitis Chronic bronchitis type: simple Chronic hypercapnic respiratory failure J96.12 Pulmonary hypertension I27.20 Pulmonary nodules R91.8 Chronic respiratory failure with hypoxia and hypercapnia J96.11; J96.12 Respiratory failure complication: hypoxia and hypercapnia 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
[2025-01-02 13:05] VITALS: BP 104/56; PULSE 87; O2SAT 98
--- OUTSIDE RECORDS SUMMARY | 2025-01-02 15:31 | XMS_ITS | Encounter Summary ---
Author Organization [facility] Address [address] [place] [id number] Care Team Providers Care Travel Nurse Name Role Phone Caitlyn Bowie MD Primary Care Provider [phone] Encounter Details Date Type Department Care Team (Late st Contact Info) Description 07/08/2020 Scanned Document [facility] Health Information Management [address] [place] [id number] External, Provider Social History Tobacco Use Types [...] Part Of [facility] [address] [facility] [address] [place], [place] [id number] Ronald Mills MD [address] [place] [address] [address] [place] [address] documented as of this encounter [...] as of this encounter Care Teams Travel Nurse Relationship Specialty Start Date End Date Caitlyn Bowie MD [address] [id number] PCP - General Internal Medicine 05/06/21 documented as of this encounter
== END 2025-01-02 13:50 | disposition home or self-care (01) ==
LOC: HO.HPS 13:01
PROVIDERS: PCP Internal Medicine; Visit Provider Hospitalist
DX: J41.0 Simple chronic bronchitis (principal); J96.12 Chronic respiratory failure with hypercapnia; I27.20 Pulmonary hypertension, unspecified; R91.8 Other nonspecific abnormal finding of lung field; J96.11 Chronic respiratory failure with hypoxia; J70.1 Chronic and other pulmonary manifestations due to radiation; I50.32 Chronic diastolic (congestive) heart failure; C34.12 Malignant neoplasm of upper lobe, left bronchus or lung; J90 Pleural effusion, not elsewhere classified
CPT/HCPCS: 99215; G2211

== ENCOUNTER 2025-01-02 13:01 | Outpatient (REF) | payer MEDICARE, SELFPAY ==
--- NOTE | ~2025-01-02 | XR_ITS ---
CLINICAL HISTORY: M25.579 - Pain in unspecified ankle and joints of unspecified foot Right ankle three views Comparison: 11/09/2022 02:23 PM EDT Findings: No acute fracture or dislocation identified. Diffuse decreased bone density noted. Vascular calcifications also noted. Impression: No acute bony abnormality This document has been electronically signed by: Rosendo Mart MD on 01/02/2025 23:04:48
== END 2025-01-02 13:02 | disposition home or self-care (01) ==
LOC: HO.XRAY 13:01
PROVIDERS: PCP Internal Medicine; Visit Provider Hospitalist
DX: M25.571 Pain in right ankle and joints of right foot (principal); J41.0 Simple chronic bronchitis; J96.12 Chronic respiratory failure with hypercapnia; I27.20 Pulmonary hypertension, unspecified; C34.12 Malignant neoplasm of upper lobe, left bronchus or lung; Z99.89 Dependence on other enabling machines and devices
CPT/HCPCS: 73610; 99212

== ENCOUNTER → 2025-01-02 14:03 | Outpatient (BNV) | payer MEDICARE, SELFPAY | PROVIDERS: PCP Internal Medicine; Visit Provider Radiology Diagnostic Radiology | DX: M25.571 Pain in right ankle and joints of right foot (principal) | CPT/HCPCS: 73610 ==

== ENCOUNTER → 2025-01-10 20:37 | Outpatient (BNV) | payer MEDICARE, SELFPAY | PROVIDERS: Emergency Provider Internal Medicine; PCP Internal Medicine; Visit Provider Radiology Diagnostic Radiology | DX: M79.672 Pain in left foot (principal); S90.32XA Contusion of left foot, initial encounter; W20.8XXA Other cause of strike by thrown, projected or falling object, initial encounter | CPT/HCPCS: 71045; 73630 ==

== ENCOUNTER 2025-01-10 21:12 | Emergency (ER) | payer MEDICARE, SELFPAY ==
--- NOTE | ~2025-01-10 | XR_ITS ---
CLINICAL HISTORY: cough 1 view chest x-ray Comparison: 10/17/2024 Findings: Lungs are clear without acute infiltrates. Stable chronic left base scarring and volume loss. Stable chronic interstitial fibrosis pattern. No pneumothorax. Heart size normal. No acute bony abnormalities. Impression: No acute processes This document has been electronically signed by: Rosendo Mart MD on 01/10/2025 23:49:58
--- NOTE | ~2025-01-10 | XR_ITS ---
CLINICAL HISTORY: bruising pain Left foot three views Comparison: None provided Findings: No acute fracture or dislocation identified. Degenerative change in decreased bone density. No radiopaque foreign body noted. Impression: No acute bony abnormality This document has been electronically signed by: Rosendo Mart MD on 01/10/2025 22:15:07
[2025-01-10 21:19] VITALS: BP 147/77; PULSE 91; RESP 17; TEMP 36.7; O2SAT 99; BMI 23.6
--- NOTE | 2025-01-10 22:13 | ED_ITS ---
HPI - Extremity Injury (Lower) General Chief Complaint: Extremity Injury, Lower Stated Complaint: left foot inju 1 week ago now its bruising/burn Time Seen by Provider: 01/10/25 21:34 Source: patient Mode of arrival: ambulatory Limitations: no limitations History of Present Illness ED Provider: HPI Narrative: Patient's history of COPD comes here because of pain in the left dorsum of the foot for last 2 weeks after a can of vegetables fell on her left foot patient has seen primary care doctor and Pulmonary DrMonalisa in last few days but did not have any x-ray done patient is walking with pain patient is on Coumadin for her blood clot last INR was 1.7 also patient complaining of cough which is been going on for last several months with mucoid phlegm [facility] same Related Data Home Medications ?Medication ?Instructions ?Recorded ?Confirmed CPAP (CPAP Machine/Device) 06/30/22 11/11/24 Oxygen Home Use 06/30/22 11/11/24 nebulizers 06/30/22 11/11/24 epinephrine 0.3 mg/0.3 mL 0.3 mg IM USEASDIRECTD PRN 0 07/14/22 11/11/24 injection, auto-injector Allergic Reaction levothyroxine 25 mcg tablet 50 mcg PO SUSA@0600 11/11/24 (Synthroid) warfarin 2.5 mg tablet (Jantoven) 1.5 mg PO DAILY@1800 01/05/24 11/11/24 docusate sodium 100 mg capsule 100 mg PO DAILY 4 11/11/24 guaifenesin 400 mg tablet 400 mg PO TID 02/01/2411/11 magnesium hydroxide 400 mg/5 mL 30 ml PO NEEDED PRN 02/01/24 11/11/24 oral suspension (Milk of Magnesia) Constipation, No BM in 3 days diazepam 5 mg tablet 2.5 mg PO BID PRN anxiety potassium chloride 20 mEq 20 meq PO DAILY 11/21/24 tablet,extended release Previous Rx's ?Medication ?Instructions ?Recorded simethicone 80 mg chewable tablet 80 mg PO QIDWMHS #20 tabs 02/04/24 (Gas Relief (simethicone)) Advair HFA 230 mcg-21 2 puff inhalation BID 90 day s #36 03/13/24 mcg/actuation aerosol inhaler grams (fluticasone propion-salmeterol) furosemide 40 mg tablet 80 mg (2 x 40 mg) PO BID #36 0 tabs 05/01/24 metoprolol succinate 50 mg 50 mg PO BID #180 tabs 11/08/02 tablet,extended release 24 hr (Toprol XL) levocetirizine 5 mg tablet 5 mg PO DAILY 90 days #90 t abs 05/23/24 trazodone 50 mg tablet 100 mg (2 x 50 mg) PO BEDTIM E #180 07/01/24 tabs meclizine 25 mg tablet 25 mg PO Q8H PRN dizziness 1 0 days 07/22/24 #30 tabs rosuvastatin 10 mg tablet 10 mg PO ONCE #90 tabs 08/02 montelukast 10 mg tablet 10 mg PO DAILY #90 tabs 08/10 12/01 zolpidem 5 mg tablet (Ambien) 5 mg PO BEDTIME PRN slee p 30 days 09/11/24 #30 tabs albuterol sulfate 90 mcg/actuation 2 inh inhalation Q6 H PRN shortness 11/05/24 aerosol inhaler of breath or wheezing 90 day s #3 ea fluticasone propionate 50 2 spray intranasal DAILY 90 days 11/05/24 mcg/actuation nasal #3 ea spray,suspension mupirocin 2 % topical ointment 1 appl topical BID 10 d ays #22 12/26/24 (Centany) grams Allergies Allergy/AdvReac Type Severity Reaction Status Date / Time morphine Allergy Severe Itching Verified 01/10/25 21:22 avocado (AVOCADO) Allergy Mild ITCHY Verified 01/10/25 21:22 THROAT, RASH azithromycin (AZITHROMYCIN) Allergy Mild ITCHY Verified 01/10/25 21:22 THROAT, RASH barium iodide (BARIUM IODIDE) Allergy Mild ITCHY Verified 01/10/25 21:22 THROAT, RASH barium sulfate Allergy Mild Itch Verified 01/10/25 21:22 bee pollen (BEE STINGS) Allergy Mild ITCHY Verified 01/10/25 21:22 THROAT, RASH ciprofloxacin (From CIPRO) Allergy Mild ITCHY Verified 01/10/25 21:22 THROAT, RASH clarithromycin (From BIAXIN) Allergy Mild ITCHY Verified 01/10/25 21:22 THROAT, RASH diatrizoate meglumine (From Allergy Mild ITCHY Verified 01/10/25 21:22 GASTROGRAFIN) THROAT, RASH diatrizoate sodium (From Allergy Mild ITCHY Verified 01/10/25 21:22 GASTROGRAFIN) THROAT, RASH diclofenac (From VOLTAREN) Allergy Mild ITCHY Verified 01/10/25 21:22 THROAT, RASH erythromycin base Allergy Mild ITCHY Verified 01/10/25 21:22 (ERYTHROMYCIN BASE) THROAT, RASH gentamicin (GENTAMICIN) Allergy Mild ITCHY Verified 01/10/25 21:22 THROAT, RASH Iodinated Contrast Media Allergy Mild ITCHY Verified 01/10/25 21:22 (IVP DYE) THROAT, RASH levofloxacin (From LEVAQUIN) Allergy Mild ITCHY Verified 01/10/25 21:22 THROAT, RASH metronidazole (From FLAGYL) Allergy Mild ITCHY Verified 01/10/25 21:22 THROAT, RASH moxifloxacin (From AVELOX) Allergy Mild ITCHY Verified 01/10/25 21:22 THROAT, RASH Penicillins (PENICILLINS) Allergy Mild ITCHY Verified 01/10/25 21:22 THROAT, RASH shrimp (SHRIMP) Allergy Mild ITCHY Verified 01/10/25 21:22 THROAT, RASH Sulfa (Sulfonamide Allergy Mild ITCHY Verified 01/10/25 21:22 Antibiotics) (SULFA THROAT, (SULFONAMIDE ANTIBIOTICS)) RASH vancomycin (VANCOMYCIN) Allergy Mild ITCHY Verified 01/10/25 21:22 THROAT, RASH clindamycin AdvReac Intermediate Unknown Verified 01/10/25 21:22 Review of Systems Review of Systems: Yes all other systems are reviewed and are negative PMFSH Past Medical History Medical History Ankle pain Chronic hypercapnic respiratory failure KANDY treated with BiPAP COPD (chronic obstructive pulmonary disease) Open wound Warfarin anticoagulation Complex sleep apnea syndrome Leg pain Anemia Tachycardia DVT (deep venous thrombosis) Compression fracture of body of thoracic vertebra ASD (atrial septal defect) Pleuritic chest pain History of COVID-19 Chronic anticoagulation Hypothyroidism GERD (gastroesophageal reflux disease) Hyperlipidemia Hypertension Factor 5 Leiden mutation, heterozygous History of non-ST elevation myocardial infarction (NSTEMI) Hypoxia Anxiety PTSD (post-traumatic stress disorder) Hemoptysis Dyspnea Tracheobronchitis CLARA positive Diverticulitis Allergic bronchitis (HFpEF) heart failure with preserved ejection fraction Subarachnoid bleed Insomnia Anti-phospholipid antibody syndrome Hypogammaglobulinemia Chronic respiratory failure Arterial insufficiency of lower extremity Complex regional pain syndrome i of right lower limb Post herpetic neuralgia Pulmonary hypertension Pericardial effusion Pulmonary emboli Pleural effusion Radiation fibrosis of lung Pneumonitis Pulmonary nodules Lung cancer Surgical History History of colonoscopy History of lung surgery History of tonsillectomy History of hysterectomy S/P mitral valve clip implantation History of cardiac cath Family History Family History Sister No problems noted. Mother Cardiovascular disease Daughter Tachycardia Other KANDY (obstructive sleep apnea) Social History Social History Household Members: Other Housing: Senior Care Do you presently have visiting nurse or other home services: Yes (at home had [employer] that came to visit her) Unable to assess alcohol history related to: Unknown Alcohol intake: never Comment: stand by assist with ambulation Patient Tobacco Use Status: Never used Tobacco Smoked in Last 30 Days: No Second Hand Smoke Exposure: No Use of substances other than those prescribed or required for medical reasons: No Advance Directives: Yes Advance Directives on File: Yes Advance Directives Date on File: 06/15/22 Do you have a plan to hurt others: No Plan service: No Current occupational status: retired Physical Exam Vital Signs: Vital Signs: Last Vital Signs Temp 97.8 F 01/10/25 23:44 Pulse 73 01/10/25 23:44 Resp 16 01/10/25 23:44 BP 124/53 L 01/10/25 23:44 Pulse Ox 99 01/10/25 23:44 O2 Del Method Nasal Cannula 01/10/25 23:44 O2 Flow Rate 2 01/10/25 23:44 Oxygen Flow Rate 2 01/10/25 21:19 BMI result Body Mass Index 23.6 Appearance: Alert. Oriented X3. No acute distress. Eyes: no pallor or icterus ENT: Pharynx normal Oral Mucosa moist tympanic membrane intact no erythema, Neck: Normal inspection. Neck supple. CVS: Normal heart rate and rhythm. Pulses normal. Respiratory: No respiratory distress. Equal air entry bilateral, no wheezing/rales/rhonchi prolonged expiration Abd: soft, not tender Skin: Skin warm and dry. Normal skin color. Normal skin turgor. Extremities: No lower extremity edema, no calf tenderness diffuse tenderness dorsum of the left foot Neuro: Oriented X 3. Medical Decision Making Medical Decision Making [facility] Narrative: Patient with left foot contusion x-ray negative chest x-ray also showing chronic changes patient was given ortho boot advised to follow up with PCP Independent Interpretation I performed an independent interpretation of an: Plain X-Ray Radiology Impression Discussion of test interpretation with radiology: I have reviewed the radiologist's reading. Discharge Plan Discharge Clinical Impression: Contusion of foot, left COPD (chronic obstructive pulmonary disease) Qualifiers: COPD type: chronic bronchitis Chronic bronchitis type: simple Qualified Code(s): J41.0 - Simple chronic bronchitis Patient Disposition: Home, Self-Care Instructions: COPD (Chronic Obstructive Pulmonary Disease) (DC), Foot Contusion (ED) Additional Instructions: Wear the boot for support Continue medication for your COPD and [facility] with [facility] No fracture were seen in the left foot You may take Tylenol for pain as needed Prescriptions: No Action Advair HFA 230-21 mcg/actuation HFA aerosol inhaler 2 puff inhalation BID 90 Days Qty: 36 4RF furosemide 40 mg tablet 80 mg PO BID Qty: 360 3RF metoprolol succinate [Toprol XL] 50 mg tablet extended release 24 hr 50 mg PO BID Qty: 180 3RF levocetirizine 5 mg tablet 5 mg PO DAILY 90 Days Qty: 90 3RF trazodone 50 mg tablet 100 mg PO BEDTIME Qty: 180 3RF meclizine 25 mg tablet 25 mg PO Q8H PRN (Reason: dizziness) 10 Days Qty: 30 0RF rosuvastatin 10 mg tablet 10 mg PO ONCE Qty: 90 2RF montelukast 10 mg tablet 10 mg PO DAILY Qty: 90 3RF albuterol sulfate 90 mcg/actuation HFA aerosol inhaler 2 inh inhalation Q6H PRN (Reason: shortness of breath or wheezing) 90 Days Qty: 3 3RF fluticasone propionate 50 mcg/actuation spray,suspension 2 spray intranasal DAILY 90 Days Qty: 3 3RF warfarin [Jantoven] 2.5 mg Tablet 1.5 mg PO DAILY@1800 Patient Comments: Dose ranges based on INR goal of 1.5-2. levothyroxine [Synthroid] 25 mcg Tablet 50 mcg PO SUSA@0600 docusate sodium 100 mg Capsule 100 mg PO DAILY magnesium hydroxide [Milk of Magnesia] 400 mg/5 mL Suspension 30 ml PO NEEDED PRN (Reason: Constipation, No BM in 3 days ) guaifenesin 400 mg Tablet 400 mg PO TID simethicone [Gas Relief (simethicone)] 80 mg Tablet,Chewable 80 mg PO QIDWMHS Qty: 20 0RF (DME) nebulizers Misc See Rx Instructions .Route Rx Instructions: As directed (DME) CPAP Machine/Device Device See Rx Instructions .Route Rx Instructions: As directed (DME) Oxygen Home Use Kit See Rx Instructions .Route Rx Instructions: As directed epinephrine 0.3 mg/0.3 mL auto-injector 0.3 mg IM USEASDIRECTD PRN (Reason: Allergic Reaction) mupirocin [Centany] 2 % ointment 1 appl topical BID 10 Days Qty: 22 0RF diazepam 5 mg tablet 2.5 mg PO BID PRN (Reason: anxiety) potassium chloride 20 mEq tablet extended release 20 meq PO DAILY zolpidem [Ambien] 5 mg tablet 5 mg PO BEDTIME PRN (Reason: sleep) 30 Days Qty: 30 3RF Interventions: ED Discharge Assessment Last Done: 01/10/25 23:44 Discharge Date/Time: 01/10/25 23:45 Print Language: Korean
[2025-01-10 23:44] VITALS: BP 124/53; PULSE 73; RESP 16; TEMP 36.6; O2SAT 99
== END 2025-01-10 23:45 | disposition home or self-care (01) ==
PROVIDERS: Emergency Provider Internal Medicine; PCP Internal Medicine
DX: S90.32XA Contusion of left foot, initial encounter (principal); J41.0 Simple chronic bronchitis; M79.672 Pain in left foot; Y29.XXXA Contact with blunt object, undetermined intent, initial encounter; X58.XXXA Exposure to other specified factors, initial encounter; Y93.9 Activity, unspecified; Y92.9 Unspecified place or not applicable; Y99.8 Other external cause status; Z79.01 Long term (current) use of anticoagulants; Z79.899 Other long term (current) drug therapy
CPT/HCPCS: 71045; 73630; 99283; 99284

== ENCOUNTER 2025-01-15 19:12 | Observation (INO) | payer MEDICARE, SELFPAY ==
--- NOTE | 2025-01-15 | ECG_ITS ---
Test Reason : cp Blood Pressure : */* mmHG Vent. Rate : 82 BPM Atrial Rate : 82 BPM P-R Int : 148 ms QRS Dur : 136 ms QT Int : 412 ms P-R-T Axes : 49 -62 63 degrees QTcB Int : 481 ms Normal sinus rhythm Possible Left atrial enlargement Right bundle branch block Left anterior fascicular block Bifascicular block Abnormal ECG When compared with ECG of 03-Nov-2024 14:38, No significant change was found Referred By: Generic ED Physician Electronically Signed By: Luis Eduardo Cadet
--- NOTE | ~2025-01-15 | XR_ITS ---
CLINICAL HISTORY: sob 1 view chest x-ray Comparison: CR - XR CHEST 1V - 01/10/25 23:07 EDT Findings: Unchanged left mid lung atelectasis/scarring with small effusion. No pneumothorax Similar prominent/enlarged cardiac silhouette. No acute fracture. IMPRESSION: Stable exam. This document has been electronically signed by: Jos Alvarado MD on 01/16/2025 00:36:11
[2025-01-15 19:26] VITALS: BP 171/80; PULSE 80; PULSE 94; RESP 16; TEMP 36.6; O2SAT 98; BMI 23.3
[2025-01-15 19:32] VITALS: PULSE 83
[2025-01-15 19:56] LABS: MANUAL DIFF FLAG NO
[2025-01-15 19:58] LABS: Hematocrit 35.3 % (37.0-47.0); Hemoglobin 12.0 g/dl (12.0-16.0); Imm Gran Abs Auto 0.12 X10*3/uL (0.00-0.03); Imm Gran Pct Auto 1.1 % (0.0-0.4); Lymphocytes Absolute Auto 1.1 X10*3/uL (1.2-4.9); Mean Corpuscular HGB Conc 34.0 g/dl (31.0-35.0); Mean Corpuscular Hemoglobin 33.0 pg (27.0-33.0); Mean Corpuscular Volume 97.0 fL (80.0-98.0); NRBC Abs Auto 0.000 X10*3/uL (0.0-0.012); NRBC Pct Auto 0.0 /100WBC (0.0-0.2); Platelet Count 208 X10*3/uL (160-400); Red Blood Count 3.64 X10*6/uL (4.20-5.50); White Blood Count 10.9 X10*3/uL (4.8-10.8)
[2025-01-15 20:03] LABS: INTERNATIONAL NORM RATIO 1.9 (0.9-1.1); Prothrombin Time 21.6 SEC (10.9-12.4)
[2025-01-15 20:16] LABS: Troponin-I High Sensitivity 32.8 ng/L (<3.5-17.0)
--- NOTE | 2025-01-15 20:46 | PC.RT ---
Pt refusing SVN; pt states they will call if they need one.
--- NOTE | 2025-01-15 21:03 | PC.NURSE ---
Pt c/o L AC iv, stating its killing my arm attempted to eplain to pt the need for the iv, pt states if you dont take it out, I will IV removed, updated
[2025-01-15 21:25] LABS: Anion Gap 13 (12-20); Blood Urea Nitrogen 24 mg/dL (9-16); Calcium 10.3 mg/dL (8.4-10.2); Carbon Dioxide 29 mmol/L (22-29); Chloride 100 mmol/L (96-108); Creatinine Clr Calc Pharmacy 48.5; Estimated Glomerular Filt Rate > 60; Potassium 3.3 mmol/L (3.3-5.1); Sodium 139 mmol/L (135-145)
--- NOTE | 2025-01-15 23:48 | ED.CHESTPAIN ---
HPI - Chest Pain General Chief Complaint: Chest Pain Stated Complaint: chest pain, pins and needle feeling Time Seen by Provider: 01/15/25 20:09 History of Present Illness HPI narrative: An 78 years old lady with PMH of CAD s/p NSTEMI, HFpEF, hx of SAH, chronic hypoxic and hypercapneic respiratory failure due to COPD, Pul HTN on 2L home O2 , KANDY on BiPAP at night, hx of non-small cell lung cancer s/p chemo, radiation, and left upper lobe lobectomy, antiphospholipid antibody syndrome, hx of DVT/PE on Coumadin, and anxiety who presents to the hospital with having chest pain going to the left arm. Patient claims she was cooking at the time when the pain started. Was fairly constant. Been ongoing all night been going on since about 17:00. No fever no chills. Mild shortness of breath. Chronic. No diaphoresis. No coughing or congestion or upper respiratory symptoms that is new. No abdominal pain. No leg pain. Patient is from home. Related Data Home Medications ?Medication ?Instructions ?Recorded ?Confirmed CPAP (CPAP Machine/Device) 06/30/22 11/11/24 Oxygen Home Use 06/30/22 11/11/24 nebulizers 06/30/22 11/11/24 epinephrine 0.3 mg/0.3 mL 0.3 mg IM [id number] PRN 07/14/22 01/16/25 injection, auto-injector Allergic Reaction levothyroxine 25 mcg tablet 50 mcg PO SUSA@0600 01/05/24 01/16/25 (Synthroid) docusate sodium 100 mg capsule 100 mg PO BID 01/14/24 01/16/25 diazepam 5 mg tablet 2.5 mg PO BID PRN anxiety 11/21/24 01/16/25 chlorhexidine gluconate 0.12 % 10 ml PO BID 01/16/25 01/16/25 mouthwash ferrous gluconate 324 mg (38 mg 324 mg PO QAM 01/16/25 01/16/25 iron) tablet folic acid 1 mg tablet 1 mg PO DAILY 01/16/25 01/16/25 levothyroxine 25 mcg tablet 25 mcg PO MOTUWETHFR@0600 01/16/25 01/16/25 (Synthroid) potassium chloride 20 mEq oral 20 meq PO DAILY 01/16/25 01/16/25 packet rosuvastatin 10 mg tablet 10 mg PO MOWEFR@2100 01/16/25 01/16/25 warfarin 1 mg tablet (Jantoven) mg PO DAILY 01/16/25 Previous Rx's ?Medication ?Instructions ?Recorded simethicone 80 mg chewable tablet 80 mg PO QIDWMHS #20 tabs 02/04/24 (Gas Relief (simethicone)) Advair HFA 230 mcg-21 2 puff inhalation BID 90 days #36 03/13/24 mcg/actuation aerosol inhaler grams (fluticasone propion-salmeterol) furosemide 40 mg tablet 80 mg (2 x 40 mg) PO BID #360 tabs 05/01/24 metoprolol succinate 50 mg 50 mg PO BID #180 tabs 05/10/24 tablet,extended release 24 hr (Toprol XL) levocetirizine 5 mg tablet 5 mg PO DAILY 90 days #90 tabs 05/23/24 trazodone 50 mg tablet 100 mg (2 x 50 mg) PO BEDTIME #180 07/01/24 tabs meclizine 25 mg tablet 25 mg PO Q8H PRN dizziness 10 days 07/22/24 #30 tabs montelukast 10 mg tablet 10 mg PO DAILY #90 tabs 08/24/24 albuterol sulfate 90 mcg/actuation 2 inh inhalation Q6H PRN shortness 11/05/24 aerosol inhaler of breath or wheezing 90 days #3 ea fluticasone propionate 50 2 spray intranasal DAILY 90 days 11/05/24 mcg/actuation nasal #3 ea spray,suspension aspirin 81 mg tablet 81 mg PO DAILY #30 tabs 01/16/25 nitroglycerin 0.4 mg sublingual 0.4 mg sublingual Q5MX3 PRN Chest 01/16/25 tablet (Nitrostat) Pain 30 days #30 tabs Allergies Allergy/AdvReac Type Severity Reaction Status Date / Time morphine Allergy Severe Itching Verified 01/15/25 19:30 avocado (AVOCADO) Allergy Mild ITCHY Verified 01/15/25 19:30 THROAT, RASH azithromycin (AZITHROMYCIN) Allergy Mild ITCHY Verified 01/15/25 19:30 THROAT, RASH barium iodide (BARIUM IODIDE) Allergy Mild ITCHY Verified 01/15/25 19:30 THROAT, RASH barium sulfate Allergy Mild Itch Verified 01/15/25 19:30 bee pollen (BEE STINGS) Allergy Mild ITCHY Verified 01/15/25 19:30 THROAT, RASH ciprofloxacin (From CIPRO) Allergy Mild ITCHY Verified 01/15/25 19:30 THROAT, RASH clarithromycin (From BIAXIN) Allergy Mild ITCHY Verified 01/15/25 19:30 THROAT, RASH diatrizoate meglumine (From Allergy Mild ITCHY Verified 01/15/25 19:30 GASTROGRAFIN) THROAT, RASH diatrizoate sodium (From Allergy Mild ITCHY Verified 01/15/25 19:30 GASTROGRAFIN) THROAT, RASH diclofenac (From VOLTAREN) Allergy Mild ITCHY Verified 01/15/25 19:30 THROAT, RASH erythromycin base Allergy Mild ITCHY Verified 01/15/25 19:30 (ERYTHROMYCIN BASE) THROAT, RASH gentamicin (GENTAMICIN) Allergy Mild ITCHY Verified 01/15/25 19:30 THROAT, RASH Iodinated Contrast Media Allergy Mild ITCHY Verified 01/15/25 19:30 (IVP DYE) THROAT, RASH levofloxacin (From LEVAQUIN) Allergy Mild ITCHY Verified 01/15/25 19:30 THROAT, RASH metronidazole (From FLAGYL) Allergy Mild ITCHY Verified 01/15/25 19:30 THROAT, RASH moxifloxacin (From AVELOX) Allergy Mild ITCHY Verified 01/15/25 19:30 THROAT, RASH Penicillins (PENICILLINS) Allergy Mild ITCHY Verified 01/15/25 19:30 THROAT, RASH shrimp (SHRIMP) Allergy Mild ITCHY Verified 01/15/25 19:30 THROAT, RASH Sulfa (Sulfonamide Allergy Mild ITCHY Verified 01/15/25 19:30 Antibiotics) (SULFA THROAT, (SULFONAMIDE ANTIBIOTICS)) RASH vancomycin (VANCOMYCIN) Allergy Mild ITCHY Verified 01/15/25 19:30 THROAT, RASH clindamycin AdvReac Intermediate Unknown Verified 01/15/25 19:30 Review of Systems Review of Systems: Positive chest pain Yes all other systems are reviewed and are negative PMFSH Past Medical History Attestation statement: The following information was validated with the patient. Medical History Ankle pain Chronic hypercapnic respiratory failure KANDY treated with BiPAP COPD (chronic obstructive pulmonary disease) Open wound Warfarin anticoagulation Complex sleep apnea syndrome Leg pain Anemia Tachycardia DVT (deep venous thrombosis) Compression fracture of body of thoracic vertebra ASD (atrial septal defect) Pleuritic chest pain History of COVID-19 Chronic anticoagulation Hypothyroidism GERD (gastroesophageal reflux disease) Hyperlipidemia Hypertension Factor 5 Leiden mutation, heterozygous History of non-ST elevation myocardial infarction (NSTEMI) Hypoxia Anxiety PTSD (post-traumatic stress disorder) Hemoptysis Dyspnea Tracheobronchitis CLARA positive Diverticulitis Allergic bronchitis (HFpEF) heart failure with preserved ejection fraction Subarachnoid bleed Insomnia Anti-phospholipid antibody syndrome Hypogammaglobulinemia Chronic respiratory failure Arterial insufficiency of lower extremity Complex regional pain syndrome i of right lower limb Post herpetic neuralgia Pulmonary hypertension Pericardial effusion Pulmonary emboli Pleural effusion Radiation fibrosis of lung Pneumonitis Pulmonary nodules Lung cancer Surgical History History of colonoscopy History of lung surgery History of tonsillectomy History of hysterectomy S/P mitral valve clip implantation History of cardiac cath Family History Family History Sister No problems noted. Mother Cardiovascular disease Daughter Tachycardia Other KANDY (obstructive sleep apnea) Social History Social History Household Members: Other Housing: [facility] Do you presently have visiting nurse or other home services: Yes (at home had HOME HEALTH REGISTERED NURSE that came to visit her) Unable to assess alcohol history related to: Unknown Alcohol intake: never Comment: stand by assist with ambulation Patient Tobacco Use Status: Never used Tobacco Second Hand Smoke Exposure: No Advance Directives Date on File: 06/15/22 service: No Current occupational status: retired Physical Exam Vital Signs: Vital Signs: Last Vital Signs Temp 0 F L 01/16/25 14:59 Pulse 72 01/16/25 14:59 Resp 13 01/16/25 14:59 BP 110/53 L 01/16/25 14:59 Pulse Ox 99 01/16/25 14:59 O2 Del Method Room Air 01/16/25 14:59 O2 Flow Rate 2 01/16/25 12:23 Oxygen Flow Rate 2 01/15/25 19:26 BMI result Body Mass Index 23.3 Appearance: Alert. Oriented X3. No acute distress. Eyes: Pupils equal, round and reactive to light. ENT: Pharynx normal. Neck: Normal inspection. Neck supple. No lymph nodes noted. No crepitus CVS: Normal heart rate and rhythm. Pulses normal. Normal S1 and S2 Respiratory: No respiratory distress. Breath sounds normal. No Wheezing. No rales Abdomen: Soft and nontender. No rigidity. No distention. good BS x4 Skin: Skin warm and dry. Normal skin color. Normal skin turgor. Extremities: No lower extremity edema. Neurovascular intact to all extremities. No Lacerations. No Rash Neuro: Oriented X 3. No motor deficit. No sensory deficit. Moving all extermities. No slurred speech Medications Administered Generic Name Dose Route Start Last Admin Trade Name Freq PRN Reason Stop Dose Admin Potassium Chloride 20 meq 01/16/25 09:00 01/16/25 09:23 Potassium Chloride Er 20 Meq Tab.Er.Prt PO 20 meq DAILY MATHEW Administration Sodium Chloride 3 ml 01/16/25 08:00 01/16/25 09:41 0.9 % Sodium Chloride Flush 3 Ml Syringe IVFLUSH 3 ml QSHIFT MATHEW Administration Medical Decision Making Medical Decision Making [facility] [place] Narrative: I received sign-out from my colleague Dr. Bermeo. Dr. Cadet recommends admission. Dr. Denis aware, patient admitted. Patient had chest pain with a history of anxiety history of CAD history of lung CA currently on Coumadin. The hospitalist team was consulted. The cardiology team was consulted. Patient to be admitted. In stable condition. Patient's troponin elevated starting at approximately 20 to 2nd set enzymes of 30 the 3rd set was in 40s. Patient to be admitted. Differential Diagnosis Differential Diagnoses: The differential diagnosis associated with the presentation includes ACS, anxiety, NSTEMI Admission/Observation Consideration of admission/observation: Escalation of care including admission/observation considered Consult Healthcare Provider Management of the patient was discussed with: Hospitalist and [facility] Shift Lead (Cardiology) Lab Data [facility] [place] Lab Attestation statement: I reviewed the patient's lab results. 01/15/25 19:52 01/15/25 19:52 Labs: Lab Results 01/15/25 01/16/25 Range/Units 19:52 00:02 WBC 10.9 H (4.8-10.8) X10*3/uL RBC 3.64 L (4.20-5.50) X10*6/uL Hgb 12.0 (12.0-16.0) g/dl Hct 35.3 L (37.0-47.0) % MCV 97.0 (80.0-98.0) fL MCH 33.0 (27.0-33.0) pg MCHC 34.0 (31.0-35.0) g/dl RDW 14.5 (11.0-16.0) % Plt Count 208 (160-400) X10*3/uL MPV 10.3 (9.4-12.3) fL Immature Gran % (Auto) 1.1 H (0.0-0.4) % Neut % (Auto) 78.4 H (45-73) % Lymph % (Auto) 9.8 L (20-40) % [place] % (Auto) 9.2 (2-11) % Eos % (Auto) 0.9 (0-4) % Baso % (Auto) 0.6 (0-2) % Lymph # (Auto) 1.1 L (1.2-4.9) X10*3/uL [place] # (Auto) 1.0 (0.1-1.2) X10*3/uL Eos # (Auto) 0.1 (0.0-0.4) X10*3/uL Baso # (Auto) 0.1 (0.0-0.2) X10*3/uL Abs Immat Gran (auto) 0.12 H (0.00-0.03) X10*3/uL Absolute Neuts (auto) 8.6 H (2.0-8.3) x10*3/uL Absolute Nucleated RBC 0.000 (0.0-0.012) X10*3/uL Nucleated RBC % (auto) 0.0 (0.0-0.2) /100WBC PT 21.6 H D (10.9-12.4) SEC INR 1.9 H (0.9-1.1) Sodium 139 (135-145) mmol/L Potassium 3.3 D (3.3-5.1) mmol/L Chloride 100 (96-108) mmol/L Carbon Dioxide 29 (22-29) mmol/L Anion Gap 13 (12-20) BUN 24 H (9-16) mg/dL Creatinine 0.72 (0.5-1.4) mg/dL Estim Creat Clear Calc 48.5 Estimated GFR > 60 Random Glucose 115 (60-115) mg/dL Calcium 10.3 H (8.4-10.2) mg/dL Troponin I High Sens 32.8 H D 48.8 H (<3.5-17.0) ng/L Independent Interpretation I performed an independent interpretation of an: EKG (Sinus heart rate is 70 there is a right bundle-branch block there is significant T-wave inversion over the anterior leads.) and Plain X-Ray (No significant changes from prior) Radiology Impression Discussion of test interpretation with radiology: I have reviewed the radiologist's reading. External Record Review External record reviewed: Inpatient record and Office record (Outpatient Cardiology record reviewed) Chronic Conditions Patient?s care impacted by: Hypertension and Cancer (Previous history of lung cancer) History of ACS Discharge Plan Discharge Clinical Impression: Chest pain, Angina pectoris Patient Disposition: Admitted As Inpatient Interventions: ED Discharge Assessment Last Done: 01/16/25 14:59 Discharge Date/Time: 01/16/25 15:00
[2025-01-16 00:26] LABS: Troponin-I High Sensitivity 48.8 ng/L (<3.5-17.0)
[2025-01-16 04:53] VITALS: BP 133/72; PULSE 79; RESP 18; TEMP 36.8; O2SAT 99
--- NOTE | 2025-01-16 04:56 | PC.NURSE ---
pt is currently resting in the stretcher, reports unable to sleep and feeling a little anxious, pt is alert and oriented, skin pwd, respirations even and unlabored, pt is reporting left sided chest pain 5/10, ns on the monitor and vs stable pt was explained that at one point this morning we will need to start a new iv-pt is agreeable to this plan
--- NOTE | 2025-01-16 05:19 | PM.IMHP ---
History of Present Illness Date of Service: 01/16/25 Attending physician on admission: Chanelle Denis Chief Complaint: chest pain Patient is a 79-year-old female with extensive past medical history to include PE/DVT on Coumadin with antiphospholipid syndrome, mitral clip, HFpEF grade 2 moderate diastolic heart failure, pericardial effusion, Lung CA with lobectomy currently in remission, COPD/from secondhand smoke exposure on 2 L during the day and 2.5 L at night, KANDY on CPAP, anxiety, hypothyroidism, hyperlipidemia, insomnia presents to the ED with complaints of persistent chest pain that started around 17:00 last evening. Patient was only cooking dinner and was not doing anything outside of normal routine. Patient was wearing oxygen at the time the chest pain worsened. When EMS arrived patient refused aspirin and IV access. Patient does not use nitroglycerin at home. Patient states she is generally compliant with her medications. Patient follows with cardiology in his known for chronic chest pain. Emergency room provider reviewed case with pack operator's and recommended admission. Heparin was on indicated and patient should remain NPO as she may undergo a stress test later today. Patient is seen and examined and currently reports 4/10 chest pain. At the time of exam, patient was lying on the stretcher with her eye mask over eyes and listening to a relaxation tape. Vital signs stable. Patient remains on oxygen with no evidence of hypoxia since arrival. Chest x-ray negative for acute findings. EKG normal sinus rhythm with right bundle-branch block which is not new and left anterior fascicular block. QTC 481. Last echo was October of 2024 which noted a small pericardial effusion, EF 55-60% and grade 2 moderate diastolic dysfunction. Mitral clip present mean gradient 7 mmHg at 73/min. Patient has mild leukocytosis of 10.9, stable H&H, potassium 3.3. UA pending. Pt reports hx of anxiety but has not had to use valium often. Review of Systems Review of Systems: At rest pt reports 3-4/10 chest pain that radiates to left chest area. Patient denies any shortness of breath, nausea, abdominal pain. Patient has not had any issues with constipation or diarrhea. Patient denies any recent falls. Patient states she was recently treated for a right foot injury that is currently bruised but patient states she can bear weight and does not use a cane or walker. Yes all other systems are reviewed and are negative PMFSH Medical History Ankle pain Chronic hypercapnic respiratory failure KANDY treated with BiPAP COPD (chronic obstructive pulmonary disease) Open wound Warfarin anticoagulation Complex sleep apnea syndrome Leg pain Anemia Tachycardia DVT (deep venous thrombosis) Compression fracture of body of thoracic vertebra ASD (atrial septal defect) Pleuritic chest pain History of COVID-19 Chronic anticoagulation Hypothyroidism GERD (gastroesophageal reflux disease) Hyperlipidemia Hypertension Factor 5 Leiden mutation, heterozygous History of non-ST elevation myocardial infarction (NSTEMI) Hypoxia Anxiety PTSD (post-traumatic stress disorder) Hemoptysis Dyspnea Tracheobronchitis CLARA positive Diverticulitis Allergic bronchitis (HFpEF) heart failure with preserved ejection fraction Subarachnoid bleed Insomnia Anti-phospholipid antibody syndrome Hypogammaglobulinemia Chronic respiratory failure Arterial insufficiency of lower extremity Complex regional pain syndrome i of right lower limb Post herpetic neuralgia Pulmonary hypertension Pericardial effusion Pulmonary emboli Pleural effusion Radiation fibrosis of lung Pneumonitis Pulmonary nodules Lung cancer Functional capacity: independent ambulation Patient : No Family History Sister No problems noted. Mother Cardiovascular disease Daughter Tachycardia Other KANDY (obstructive sleep apnea) Surgical History History of colonoscopy History of lung surgery History of tonsillectomy History of hysterectomy S/P mitral valve clip implantation History of cardiac cath Social History Household Members: Other Housing: [facility] Do you presently have visiting nurse or other home services: Yes (at home had CHILDR[employer] that came to visit her) Unable to assess alcohol history related to: Unknown Alcohol intake: never Comment: stand by assist with ambulation Patient Tobacco Use Status: Never used Tobacco Smoked in Last 30 Days: No Second Hand Smoke Exposure: No Use of substances other than those prescribed or required for medical reasons: No Advance Directives: Yes Advance Directives on File: Yes Advance Directives Date on File: 06/15/22 Do you have a plan to hurt others: No Plan Patient : No service: No Current occupational status: retired Ebola Risk: Travel/Contact With Anyone From Affected Area/s: No Has Patient Experienced Ebola Symptoms: No Meds Allergies Allergy/AdvReac Type Severity Reaction Status Date / Time morphine Allergy Severe Itching Verified 01/15/25 19:30 avocado (AVOCADO) Allergy Mild ITCHY Verified 01/15/25 19:30 THROAT, RASH azithromycin (AZITHROMYCIN) Allergy Mild ITCHY Verified 01/15/25 19:30 THROAT, RASH barium iodide (BARIUM IODIDE) Allergy Mild ITCHY Verified 01/15/25 19:30 THROAT, RASH barium sulfate Allergy Mild Itch Verified 01/15/25 19:30 bee pollen (BEE STINGS) Allergy Mild ITCHY Verified 01/15/25 19:30 THROAT, RASH ciprofloxacin (From CIPRO) Allergy Mild ITCHY Verified 01/15/25 19:30 THROAT, RASH clarithromycin (From BIAXIN) Allergy Mild ITCHY Verified 01/15/25 19:30 THROAT, RASH diatrizoate meglumine (From Allergy Mild ITCHY Verified 01/15/25 19:30 GASTROGRAFIN) THROAT, RASH diatrizoate sodium (From Allergy Mild ITCHY Verified 01/15/25 19:30 GASTROGRAFIN) THROAT, RASH diclofenac (From VOLTAREN) Allergy Mild ITCHY Verified 01/15/25 19:30 THROAT, RASH erythromycin base Allergy Mild ITCHY Verified 01/15/25 19:30 (ERYTHROMYCIN BASE) THROAT, RASH gentamicin (GENTAMICIN) Allergy Mild ITCHY Verified 01/15/25 19:30 THROAT, RASH Iodinated Contrast Media Allergy Mild ITCHY Verified 01/15/25 19:30 (IVP DYE) THROAT, RASH levofloxacin (From LEVAQUIN) Allergy Mild ITCHY Verified 01/15/25 19:30 THROAT, RASH metronidazole (From FLAGYL) Allergy Mild ITCHY Verified 01/15/25 19:30 THROAT, RASH moxifloxacin (From AVELOX) Allergy Mild ITCHY Verified 01/15/25 19:30 THROAT, RASH Penicillins (PENICILLINS) Allergy Mild ITCHY Verified 01/15/25 19:30 THROAT, RASH shrimp (SHRIMP) Allergy Mild ITCHY Verified 01/15/25 19:30 THROAT, RASH Sulfa (Sulfonamide Allergy Mild ITCHY Verified 01/15/25 19:30 Antibiotics) (SULFA THROAT, (SULFONAMIDE ANTIBIOTICS)) RASH vancomycin (VANCOMYCIN) Allergy Mild ITCHY Verified 01/15/25 19:30 THROAT, RASH clindamycin AdvReac Intermediate Unknown Verified 01/15/25 19:30 Active Medications: Current Medications Acetaminophen (Acetaminophen 325 Mg Tablet) 650 mg PO Q6H PRN PRN Reason: Pain, Mild 1-3,fever,headache Albuterol/Ipratropium (Albuterol/Iprat 2.5/0.5mg 3 Ml Ampul.Neb) 3 ml INHALE Q4H PRN PRN Reason: Shortness of Breath/Wheezing Calcium Carbonate (Calcium Carbonate 750 Mg Tab.Chew) 750 mg PO Q4H PRN PRN Reason: Heartburn Magnesium Hydroxide (Milk Of Magnesia 30 Ml Oral.Susp) 30 ml PO DAILY PRN PRN Reason: Constipation Melatonin (Melatonin 3 Mg Tablet) 6 mg PO BEDTIME PRN PRN Reason: Insomnia Nitroglycerin (Nitroglycerin 0.4 Mg Tab.Subl) 0.4 mg SUBLINGUAL Q5MX3 PRN PRN Reason: Chest Pain Ondansetron HCl (Ondansetron Hcl 4 Mg/2 Ml Vial) 4 mg IVPUSH Q8H PRN PRN Reason: Nausea and Vomiting Polyethylene Glycol (Polyethylene Glycol 3350 17 Gm Powd.Pack) 17 gm PO DAILY PRN PRN Reason: Constipation Senna (Sennosides 8.6 Mg Tablet) 17.2 mg PO BEDTIME MATHEW Sodium Chloride (0.9 % Sodium Chloride Flush 3 Ml Syringe) 3 ml IVFLUSH QSHIFT MATHEW Warfarin Sodium (Warfarin Sodium 0.5 Mg Halftab) 1.5 mg PO DAILY@1800 [facility] Home Medications ?Medication ?Instructions ?Recorded ?Confirmed ?Last Taken ?Type CPAP (CPAP Machine/Device) 06/30/22 11/11/24 Unknown History Oxygen Home Use 06/30/22 11/11/24 Unknown History nebulizers 06/30/22 11/11/24 Unknown History epinephrine 0.3 mg/0.3 mL 0.3 mg IM USEASDIRECTD PRN 07/14/22 11/11/24 Unknown History injection, auto-injector Allergic Reaction levothyroxine 25 mcg tablet 50 mcg PO SUSA@0600 01/05/24 11/11/24 01/28/24 History (Synthroid) warfarin 2.5 mg tablet (Jiantoven) 1.5 mg PO DAILY@1800 01/05/24 11/11/24 01/31/24 18:00 History docusate sodium 100 mg capsule 100 mg PO DAILY 01/14/24 11/11/24 02/01/24 06:00 History guaifenesin 400 mg tablet 400 mg PO TID 02/01/24 11/11/24 02/01/24 06:00 History magnesium hydroxide 400 mg/5 mL 30 ml PO NEEDED PRN 02/01/24 11/11/24 02/01/24 06:00 History oral suspension (Milk of Magnesia) Constipation, No BM in 3 days diazepam 5 mg tablet 2.5 mg PO BID PRN anxiety 11/21/24 Unknown History potassium chloride 20 mEq 20 meq PO DAILY 11/21/24 Unknown History tablet,extended release Physical Exam Vital Signs and Narrative: Vital Signs: Last Vital Signs Temp 98.2 F 01/16/25 04:53 Pulse 79 01/16/25 04:53 Resp 18 01/16/25 04:53 BP 133/72 01/16/25 04:53 Pulse Ox 99 01/16/25 04:53 O2 Del Method Nasal Cannula 01/16/25 04:53 O2 Flow Rate 2 01/16/25 04:53 Oxygen Flow Rate 2 01/15/25 19:26 BMI result Body Mass Index 23.3 Alert and orientated X3, fair historian, stated no hx of post herpetic neuralgia or shingles Neuro: CN II-X11 intact, no deficits, visual acuity intact EYES: PERRLA, EOM intact, sclera non icteric, conjunctiva pink ENT: hearing intact, no issues with swallowing, uvula midline, lips moist, nares patent no epistaxis Cardiac: S1 S2 RRR, no murmur, no JVD, no edema in Lower ext, discoloration in BLE indicating PVD, skin warm Pulmonary: lungs clear to auscultation B, pt presents euvolemic Abdominal: BS active in all 4 quadrants, no guarding, tenderness, rebounding MSK: strength 4/5 upper and lower extremities : no CVA tenderness no bladder distension Extremities: no edema in lower extremities, PT and DP pulses palpable +2 Psych: mood stable, judgement and insight good Skin: R foot bruised, healing stages not new per pt, bruising mild noted on chest Results Labs 01/15/25 19:52 01/15/25 19:52 Labs: Laboratory Results - last 24 hr 01/15/25 19:52 MCV 97.0 MCH 33.0 MCHC 34.0 RDW 14.5 Plt Count 208 MPV 10.3 Immature Gran % (Auto) 1.1 H Neut % (Auto) 78.4 H Lymph % (Auto) 9.8 L [place] % (Auto) 9.2 Eos % (Auto) 0.9 Baso % (Auto) 0.6 Lymph # (Auto) 1.1 L [place] # (Auto) 1.0 Eos # (Auto) 0.1 Baso # (Auto) 0.1 Abs Immat Gran (auto) 0.12 H Absolute Neuts (auto) 8.6 H Absolute Nucleated RBC 0.000 Nucleated RBC % (auto) 0.0 PT 21.6 H D INR 1.9 H Anion Gap 13 Estim Creat Clear Calc 48.5 Estimated GFR > 60 Random Glucose 115 Calcium 10.3 H ECG Attestation: I personally reviewed and interpreted this ECG as follows: (NSR, RBBB, LAFB (not new)) Prior ECG tracings: available for review Imaging Radiologist's Impressions: CXR Findings: Unchanged left mid lung atelectasis/scarring with small effusion. No pneumothorax Similar prominent/enlarged cardiac silhouette. No acute fracture. IMPRESSION: Stable exam. Assessment and Plan (1) Chest pain: Qualifiers: Chest pain type: other chest pain Qualified Code(s): R07.89 - Other chest pain Status: Acute Plan Patient is a 79-year-old female with extensive past medical history to include PE/DVT on Coumadin with antiphospholipid syndrome, mitral clip, HFpEF grade 2 moderate diastolic heart failure, pericardial effusion, Lung CA with lobectomy currently in remission, COPD/from secondhand smoke exposure on 2 L during the day and 2.5 L at night, KANDY on CPAP, anxiety, hypothyroidism, hyperlipidemia, insomnia is being admitted under observation for chest pain. Patient will be seen by Cardiology in the a.m.. Patient remains NPO for possible stress test. No heparin per Materials Planning Analyst. Chest pain (chronic hx) Pt refused ASA and NTG Currently 3 to 4/10 left chest, patient defers need for nitroglycerin or ASA Telemetry Cardiology consulted, pt will remain NPO for possible stress test Troponins 32.8, 48.8, trend ECG NSR, RBBB, LAFB (not new) BNP pending Last echo 10/2024, small pericaridal effusion present at that time, pt is on coumadin HFpEF/ [place] clip in place Last echo 10/2024, EF 55-60, grade II diastolic failure Pt presents euvolemic, on usual 2 NC Daily weights, low Na diet once able to eat, fluid allowance 1.5 L MED REC pending, pt normally on lasix 80 mgs BID, K 3.3 HX of PE/DVT on coumadin/ antiphospholipid syndrome INR 1.9, pt takes 1.5 mgs daily INR daily No evidence of spontaneous bleeding COPD/ HX of lung CA and lobectomy Pt on 2L during the day and 2.5 L at night No hypoxia this admission Duo nebs prn Supportive care Cancer in remission per pt KANDY Pt does use CPAP but did not bring in mask May need to order in house CPAP if pt stays overnight Hypothyroidism Continue levothyroxine Anxiety Pt uses valium prn DVT prophylaxis: coumadin PPI Prophylaxis: protonix IV MED REC PENDING Full Code Status Quality Stroke Does the patient have a stroke diagnosis?: No Reason for No Anti-thrombotic by Day Two: N/A - Med Ordered VTE Prior VTE?: No VTE Risk Level:: Medical - moderate - high VTE Device Contraindication: N/A - Device Ordered VTE Drug Contraindication: N/A - Med Ordered
[2025-01-16 07:07] VITALS: BP 133/65; PULSE 77; RESP 15; TEMP 37; O2SAT 98
[2025-01-16 07:16] LABS: INTERNATIONAL NORM RATIO 1.7 (0.9-1.1); Prothrombin Time 19.8 SEC (10.9-12.4)
[2025-01-16 07:27] LABS: Magnesium 2.5 mg/dL (1.6-2.6)
--- NOTE | 2025-01-16 08:02 | P.PNIM_ITS ---
Subjective Subjective Date of Service: 01/16/25 Physical Exam 2 Vital Signs: Vital Signs: Last Vital Signs Temp 98.6 F 01/16/25 07:07 Pulse 77 01/16/25 07:07 Resp 15 01/16/25 07:07 BP 133/65 01/16/25 07:07 Pulse Ox 98 01/16/25 07:07 O2 Del Method Nasal Cannula 01/16/25 07:07 O2 Flow Rate 2 01/16/25 07:07 Oxygen Flow Rate 2 01/15/25 19:26 BMI result Body Mass Index 23.3 Objective Data Active Medications Acetaminophen (Acetaminophen 325 Mg Tablet) 650 mg PO Q6H PRN PRN Reason: Pain, Mild 1-3,fever,headache Albuterol/Ipratropium (Albuterol/Iprat 2.5/0.5mg 3 Ml Ampul.Neb) 3 ml INHALE Q4H PRN PRN Reason: Shortness of Breath/Wheezing Calcium Carbonate (Calcium Carbonate 750 Mg Tab.Chew) 750 mg PO Q4H PRN PRN Reason: Heartburn Magnesium Hydroxide (Milk Of Magnesia 30 Ml Oral.Susp) 30 ml PO DAILY PRN PRN Reason: Constipation Melatonin (Melatonin 3 Mg Tablet) 6 mg PO BEDTIME PRN PRN Reason: Insomnia Nitroglycerin (Nitroglycerin 0.4 Mg Tab.Subl) 0.4 mg SUBLINGUAL Q5MX3 PRN PRN Reason: Chest Pain Ondansetron HCl (Ondansetron Hcl 4 Mg/2 Ml Vial) 4 mg IVPUSH Q8H PRN PRN Reason: Nausea and Vomiting Polyethylene Glycol (Polyethylene Glycol 3350 17 Gm Powd.Pack) 17 gm PO DAILY PRN PRN Reason: Constipation Potassium Chloride (Potassium Chloride Er 20 Meq Tab.Er.Prt) 20 meq PO DAILY MATHEW Senna (Sennosides 8.6 Mg Tablet) 17.2 mg PO BEDTIME MATHEW Sodium Chloride (0.9 % Sodium Chloride Flush 3 Ml Syringe) 3 ml IVFLUSH QSHIFT MATHEW Warfarin Sodium (Warfarin Sodium 0.5 Mg Halftab) 1.5 mg PO DAILY@1800 MATHEW Labs 01/15/25 19:52 01/15/25 19:52 Labs: Laboratory Results - last 24 hr 01/15/25 01/16/25 19:52 06:58 MCV 97.0 MCH 33.0 MCHC 34.0 RDW 14.5 Plt Count 208 MPV 10.3 Immature Gran % (Auto) 1.1 H Neut % (Auto) 78.4 H Lymph % (Auto) 9.8 L [place] % (Auto) 9.2 Eos % (Auto) 0.9 Baso % (Auto) 0.6 Lymph # (Auto) 1.1 L [place] # (Auto) 1.0 Eos # (Auto) 0.1 Baso # (Auto) 0.1 Abs Immat Gran (auto) 0.12 H Absolute Neuts (auto) 8.6 H Absolute Nucleated RBC 0.000 Nucleated RBC % (auto) 0.0 Hold Purple Top SEE NOTE PT 21.6 H D 19.8 H INR 1.9 H 1.7 H Anion Gap 13 Estim Creat Clear Calc 48.5 Estimated GFR > 60 Random Glucose 115 Calcium 10.3 H Magnesium 2.5 Quality Stroke Does the patient have a stroke diagnosis?: No Reason for No Anti-thrombotic by Day Two: N/A - Med Ordered VTE Prior VTE?: No VTE Risk Level:: Medical - moderate - high VTE Device Contraindication: N/A - Device Ordered VTE Drug Contraindication: N/A - Med Ordered
[2025-01-16] MEDS: Potassium Chloride ER 20 MEQ TAB.ER.PRT PO (09:23)
[2025-01-16] MEDS: 0.9 % Sodium Chloride Flush 3 ML SYRINGE IVFLUSH (09:41)
--- NOTE | 2025-01-16 10:26 | PHA.MEDREC ---
Pharmacy Consult ? Medication Reconciliation Pharmacy has completed the medication reconciliation. Patient was able to recognize all medications reported how she takes them. She does not know her Warfarin dose. Patient left message with anticoagulation clinic to confirm dose. I attempted to call [facility] anticoagulation clinic, however phone number online does not seem to work. Informed patient to let RN know when she hear back from the anticoagulation clinic. Ingrid Gordon, PharmD
[2025-01-16 10:30] LABS: Appearance Urine Clear; Glucose Urine UA Negative (Negative); PH 7.5 (5.0-9.0); Specific Gravity - Urine 1.015 (1.005-1.025)
[2025-01-16 12:23] VITALS: BP 104/63; PULSE 75; RESP 18; TEMP 36.9; O2SAT 99
[2025-01-16 13:08] LABS: Troponin-I High Sensitivity 34.0 ng/L (<3.5-17.0)
--- NOTE | 2025-01-16 13:58 | P.DS_ITS ---
DS: Providers Provider Date of Service: 01/16/25 Date of admission: 01/16/25 05:04 Date of discharge: 01/16/25 Primary care physician: Unknown Physician Consults: 01/16/25 05:15 Consult to Cardiology Routine Consulting Provider: [facility] [place] [facility] Reason for consultation: chest pain,. ? stress test Attending physician on discharge: Olivia Blount Discharging clinician: Olivia Blount DS: Diagnosis Discharge Diagnosis (1) Chest pain: Status: Acute DS: Summary Hospital Course Hospital Course: 79-year-old female with extensive past medical history to include PE/DVT on Coumadin with antiphospholipid syndrome, mitral clip, HFpEF grade 2 moderate diastolic heart failure, pericardial effusion, Lung CA with lobectomy currently in remission, COPD/from secondhand smoke exposure on 2 L during the day and 2.5 L at night, KANDY on CPAP, anxiety, hypothyroidism, hyperlipidemia, insomnia presents to the ED with complaints of persistent chest pain that started around 17:00 last evening, very atypical and noncardiac in etiology (sharp-bilateral upper chest intermittent, reports 08/19 versus 12/17, no aggravating or relieving factors, no hypoxia-patient is on baseline 2 L O2, no diaphoresis, no shortness of breath, no radiation). Pt has a significant history of anxiety and multiple admissions for various somatic symptoms. Advised the patient to follow up with PCP, outpatient Cardiology, seek a new therapist and psychiatrist to manage her ongoing anxiety. Patient is extremely anxious even about aspirin and nitroglycerin and I have explained about the pathophysiology and patient is extremely hesitant. Cardiology saw the patient and is in agreement with the above plan. Patient was explained that she needs cardiac stress test and she apparently is thinking about it. Hence given downtrending troponin, stable hemodynamics, noncardiac chest pain, worsening anxiety likely causing her somatic symptoms. I have initiated nitroglycerin and aspirin given her cardiac comorbidities. Patient is extremely anxious about taking both. I advised her to talk about this with her primary care and electrical design engineer outpatient. For her chronic medical conditions, no medical changes have been made. Status at Discharge Functional status at discharge: independent ambulation Overall status at discharge: patient is back to baseline Time Attestation Total time managing care of this patient today: 35 mintues. Discharge Coordination Time (in mins): 35 Quality: Safe Use of Opioids Does Pt have an Active Cancer Diagnosis on the Problem List?: Yes Opioid Measure Date for [facility] Report: 12/17/24 Opioid Measure Time for [facility] Report: 14:15 Quality: Stroke Does the patient have a stroke diagnosis?: No Physical Exam Vital Signs: Vital Signs: Last Vital Signs Temp 98.4 F 01/16/25 12:23 Pulse 75 01/16/25 12:23 Resp 18 01/16/25 12:23 BP 104/63 01/16/25 12:23 Pulse Ox 99 01/16/25 12:23 O2 Del Method Nasal Cannula 01/16/25 12:23 O2 Flow Rate 2 01/16/25 12:23 Oxygen Flow Rate 2 01/15/25 19:26 BMI result Body Mass Index 23.3 Appearance: Alert. Oriented X3. No acute distress. CVS: Normal heart rate and rhythm. Pulses normal. Normal S1 and S2 Respiratory: No respiratory distress. Breath sounds normal. No Wheezing. No rales Abdomen: Soft and nontender. No rigidity. No distention. good BS x4 Extremities: No lower extremity edema. Neurovascular intact to all extremities. No Lacerations. No Rash Neuro: Oriented X 3. Extremely anxious and has poor insight into her medical conditions. No motor deficit. No sensory deficit. Moving all extermities. No slurred speech Psych: Appearance: grossly normal Speech and movement: Normal speech and movement present Affect: Anxious affect present Attitude: cooperative Thought content: Depressive thoughts present Insight: Limited insight present (Psych) Judgement: Limited judgement present (Psych) DS: Data Data Completed and Pending Completed studies during hospitalization [Text1]: Procedures Assistance with Respiratory Ventilation, Less than 24 Consecutive Hours, Continuous Positive Airway Pressure (01/04/24) Excision of Right Lower Leg Skin, External Approach (01/04/24) Extirpation of Matter from Right Lower Leg Skin, External Approach (01/14/24) Labs on day of discharge: Laboratory Results - last 24 hr 01/15/25 01/16/25 01/16/25 19:52 00:02 06:58 WBC 10.9 H RBC 3.64 L Hgb 12.0 Hct 35.3 L MCV 97.0 MCH 33.0 MCHC 34.0 RDW 14.5 Plt Count 208 MPV 10.3 Immature Gran % (Auto) 1.1 H Neut % (Auto) 78.4 H Lymph % (Auto) 9.8 L [place] % (Auto) 9.2 Eos % (Auto) 0.9 Baso % (Auto) 0.6 Lymph # (Auto) 1.1 L [place] # (Auto) 1.0 Eos # (Auto) 0.1 Baso # (Auto) 0.1 Abs Immat Gran (auto) 0.12 H Absolute Neuts (auto) 8.6 H Absolute Nucleated RBC 0.000 Nucleated RBC % (auto) 0.0 Hold Purple Top SEE NOTE PT 21.6 H D 19.8 H INR 1.9 H 1.7 H Sodium 139 Potassium 3.3 D Chloride 100 Carbon Dioxide 29 Anion Gap 13 BUN 24 H Creatinine 0.72 Estim Creat Clear Calc 48.5 Estimated GFR > 60 Random Glucose 115 Calcium 10.3 H Magnesium 2.5 Troponin I High Sens 32.8 H D 48.8 H Urine Color Urine Appearance Urine pH Ur Specific [place] Urine Protein Urine Glucose (UA) Urine Ketones Urine Blood Urine Nitrite Ur Leukocyte Esterase 01/16/25 01/16/25 10:22 12:44 WBC RBC Hgb Hct MCV MCH MCHC RDW Plt Count MPV Immature Gran % (Auto) Neut % (Auto) Lymph % (Auto) [place] % (Auto) Eos % (Auto) Baso % (Auto) Lymph # (Auto) [place] # (Auto) Eos # (Auto) Baso # (Auto) Abs Immat Gran (auto) Absolute Neuts (auto) Absolute Nucleated RBC Nucleated RBC % (auto) Hold Purple Top PT INR Sodium Potassium Chloride Carbon Dioxide Anion Gap BUN Creatinine Estim Creat Clear Calc Estimated GFR Random Glucose Calcium Magnesium Troponin I High Sens 34.0 H Urine Color Yellow Urine Appearance Clear Urine pH 7.5 Ur Specific [place] 1.015 Urine Protein Negative Urine Glucose (UA) Negative Urine Ketones Negative Urine Blood Negative Urine Nitrite Negative Ur Leukocyte Esterase Negative Discharge Plan Discharge Patient Disposition: Home, Self-Care Referrals: Physician,Unknown J [Primary Care Provider, Medical] - 1 Week Discharge Medications: New nitroglycerin [Nitrostat] 0.4 mg Tablet, Sublingual 0.4 mg sublingual Q5MX3 PRN (Reason: Chest Pain) 30 Days Qty: 30 0RF aspirin 81 mg tablet 81 mg PO DAILY Qty: 30 3RF Continued Advair HFA 230-21 mcg/actuation HFA aerosol inhaler 2 puff inhalation BID 90 Days Qty: 36 4RF furosemide 40 mg tablet 80 mg PO BID Qty: 360 3RF metoprolol succinate [Toprol XL] 50 mg tablet extended release 24 hr 50 mg PO BID Qty: 180 3RF levocetirizine 5 mg tablet 5 mg PO DAILY 90 Days Qty: 90 3RF trazodone 50 mg tablet 100 mg PO BEDTIME Qty: 180 3RF meclizine 25 mg tablet 25 mg PO Q8H PRN (Reason: dizziness) 10 Days Qty: 30 0RF montelukast 10 mg tablet 10 mg PO DAILY Qty: 90 3RF albuterol sulfate 90 mcg/actuation HFA aerosol inhaler 2 inh inhalation Q6H PRN (Reason: shortness of breath or wheezing) 90 Days Qty: 3 3RF fluticasone propionate 50 mcg/actuation spray,suspension 2 spray intranasal DAILY 90 Days Qty: 3 3RF levothyroxine [Synthroid] 25 mcg Tablet 50 mcg PO SUSA@0600 docusate sodium 100 mg Capsule 100 mg PO BID simethicone [Gas Relief (simethicone)] 80 mg Tablet,Chewable 80 mg PO QIDWMHS Qty: 20 0RF levothyroxine [Synthroid] 25 mcg tablet 25 mcg PO MOTUWETHFR@0600 folic acid 1 mg tablet 1 mg PO DAILY chlorhexidine gluconate 0.12 % mouthwash 10 ml PO BID potassium chloride 20 mEq packet 20 meq PO DAILY rosuvastatin 10 mg tablet 10 mg PO MOWEFR@2100 warfarin [Jantoven] 1 mg tablet PO DAILY ferrous gluconate 324 mg (38 mg iron) tablet 324 mg PO QAM (DME) nebulizers Misc See Rx Instructions .Route Rx Instructions: As directed (DME) CPAP Machine/Device Device See Rx Instructions .Route Rx Instructions: As directed (DME) Oxygen Home Use Kit See Rx Instructions .Route Rx Instructions: As directed epinephrine 0.3 mg/0.3 mL auto-injector 0.3 mg IM USEASDIRECTD PRN (Reason: Allergic Reaction) diazepam 5 mg tablet 2.5 mg PO BID PRN (Reason: anxiety) Discharge Orders: Discharge Order (Routine); Ordered 01/16/25 Ordered By: Olivia Blount Diet: Low salt diet Activity on Discharge: As tolerated Stand Alone Forms: Patient Portal Discharge page Print Language: Kyrgyz Care Plan Goals: Patient to follow-up with primary care Patient to follow-up with cardiology outpatient Patient to seek psychiatric care for her unresolved severe anxiety affecting ADLs Patient to seek psychotherapy for ongoing management of severe anxiety Health Concerns: Patient to follow-up with primary care Patient to follow-up with cardiology outpatient Patient to seek psychiatric care for her unresolved severe anxiety affecting ADLs Patient to seek psychotherapy for ongoing management of severe Plan of Treatment: Patient to follow-up with primary care Patient to follow-up with cardiology outpatient Patient to seek psychiatric care for her unresolved severe anxiety affecting ADLs Patient to seek psychotherapy for ongoing management of severe Assessment: Patient to follow-up with primary care Patient to follow-up with cardiology outpatient Patient to seek psychiatric care for her unresolved severe anxiety affecting ADLs Patient to seek psychotherapy for ongoing management of severe Patient Instructions: Anxiety (ED), Mood Disorders (DC)
[2025-01-16 14:46] VITALS: BP 110/53; PULSE 72; RESP 13; O2SAT 99
[2025-01-16 14:59] VITALS: BP 110/53; PULSE 72; RESP 13; TEMP -17.7; TEMP 0; O2SAT 99
--- NOTE | 2025-01-16 15:48 | PM.CNCAR ---
History of Present Illness History of Present Illness Date of Service: 01/16/25 Requesting physician: Olivia Blount Chief complaint: chest pain Narrative: [age] female with complex medical issues including previous lung resection for lung cancer, radiation heart disease, mitral valve regurgitation status post mitral clip, moderate coronary artery disease, pulmonary hypertension, lung disease on supplemental oxygen and diastolic heart failure. She is presenting with chest discomfort. She gets chest tightness off and on which was never consistent. This was happening more frequently before she was using supplemental oxygen. Since she has started using oxygen regularly her chest pains have improved significantly and she only occasionally gets it. She does notice that when she lifts something she gets chest tightness. She is here because she started feeling needle and pinch like sensation on her chest. This sensation is still present currently. She came to the emergency department and was admitted for further workup. She is denying any chest tightness currently. She was coughing some phlegm earlier this week. Clinically does not have any significant heart failure symptoms and has been compliant with medications. Her INR target is 1.5-2 because of previous hemoptysis. [facility] Past Medical History Medical History Ankle pain Chronic hypercapnic respiratory failure KANDY treated with BiPAP COPD (chronic obstructive pulmonary disease) Open wound Warfarin anticoagulation Complex sleep apnea syndrome Leg pain Anemia Tachycardia DVT (deep venous thrombosis) Compression fracture of body of thoracic vertebra ASD (atrial septal defect) Pleuritic chest pain History of COVID-19 Chronic anticoagulation Hypothyroidism GERD (gastroesophageal reflux disease) Hyperlipidemia Hypertension Factor 5 Leiden mutation, heterozygous History of non-ST elevation myocardial infarction (NSTEMI) Hypoxia Anxiety PTSD (post-traumatic stress disorder) Hemoptysis Dyspnea Tracheobronchitis CLARA positive Diverticulitis Allergic bronchitis (HFpEF) heart failure with preserved ejection fraction Subarachnoid bleed Insomnia Anti-phospholipid antibody syndrome Hypogammaglobulinemia Chronic respiratory failure Arterial insufficiency of lower extremity Complex regional pain syndrome i of right lower limb Post herpetic neuralgia Pulmonary hypertension Pericardial effusion Pulmonary emboli Pleural effusion Radiation fibrosis of lung Pneumonitis Pulmonary nodules Lung cancer Family History Family History Sister No problems noted. Mother Cardiovascular disease Daughter Tachycardia Other KANDY (obstructive sleep apnea) Surgical History Surgical History History of colonoscopy History of lung surgery History of tonsillectomy History of hysterectomy S/P mitral valve clip implantation History of cardiac cath Social History Social History Household Members: Other Housing: [facility] Do you presently have visiting nurse or other home services: Yes (at home had ORTHOTIST OR PROSTHETIST that came to visit her) Unable to assess alcohol history related to: Unknown Alcohol intake: never Comment: stand by assist with ambulation Patient Tobacco Use Status: Never used Tobacco Second Hand Smoke Exposure: No Advance Directives Date on File: 06/15/22 service: No Current occupational status: retired Travel History Ebola Risk: Travel/Contact With Anyone From Affected Area/s: No Has Patient Experienced Ebola Symptoms: No Meds Allergies Allergy/AdvReac Type Severity Reaction Status Date / Time morphine Allergy Severe Itching Verified 01/15/25 19:30 avocado (AVOCADO) Allergy Mild ITCHY Verified 01/15/25 19:30 THROAT, RASH azithromycin (AZITHROMYCIN) Allergy Mild ITCHY Verified 01/15/25 19:30 THROAT, RASH barium iodide (BARIUM IODIDE) Allergy Mild ITCHY Verified 01/15/25 19:30 THROAT, RASH barium sulfate Allergy Mild Itch Verified 01/15/25 19:30 bee pollen (BEE STINGS) Allergy Mild ITCHY Verified 01/15/25 19:30 THROAT, RASH ciprofloxacin (From CIPRO) Allergy Mild ITCHY Verified 01/15/25 19:30 THROAT, RASH clarithromycin (From BIAXIN) Allergy Mild ITCHY Verified 01/15/25 19:30 THROAT, RASH diatrizoate meglumine (From Allergy Mild ITCHY Verified 01/15/25 19:30 GASTROGRAFIN) THROAT, RASH diatrizoate sodium (From Allergy Mild ITCHY Verified 01/15/25 19:30 GASTROGRAFIN) THROAT, RASH diclofenac (From VOLTAREN) Allergy Mild ITCHY Verified 01/15/25 19:30 THROAT, RASH erythromycin base Allergy Mild ITCHY Verified 01/15/25 19:30 (ERYTHROMYCIN BASE) THROAT, RASH gentamicin (GENTAMICIN) Allergy Mild ITCHY Verified 01/15/25 19:30 THROAT, RASH Iodinated Contrast Media Allergy Mild ITCHY Verified 01/15/25 19:30 (IVP DYE) THROAT, RASH levofloxacin (From LEVAQUIN) Allergy Mild ITCHY Verified 01/15/25 19:30 THROAT, RASH metronidazole (From FLAGYL) Allergy Mild ITCHY Verified 01/15/25 19:30 THROAT, RASH moxifloxacin (From AVELOX) Allergy Mild ITCHY Verified 01/15/25 19:30 THROAT, RASH Penicillins (PENICILLINS) Allergy Mild ITCHY Verified 01/15/25 19:30 THROAT, RASH shrimp (SHRIMP) Allergy Mild ITCHY Verified 01/15/25 19:30 THROAT, RASH Sulfa (Sulfonamide Allergy Mild ITCHY Verified 01/15/25 19:30 Antibiotics) (SULFA THROAT, (SULFONAMIDE ANTIBIOTICS)) RASH vancomycin (VANCOMYCIN) Allergy Mild ITCHY Verified 01/15/25 19:30 THROAT, RASH clindamycin AdvReac Intermediate Unknown Verified 01/15/25 19:30 Active Medications: Current Medications Acetaminophen (Acetaminophen 325 Mg Tablet) 650 mg PO Q6H PRN PRN Reason: Pain, Mild 1-3,fever,headache Albuterol/Ipratropium (Albuterol/Iprat 2.5/0.5mg 3 Ml Ampul.Neb) 3 ml INHALE Q4H PRN PRN Reason: Shortness of Breath/Wheezing Calcium Carbonate (Calcium Carbonate 750 Mg Tab.Chew) 750 mg PO Q4H PRN PRN Reason: Heartburn Magnesium Hydroxide (Milk Of Magnesia 30 Ml Oral.Susp) 30 ml PO DAILY PRN PRN Reason: Constipation Melatonin (Melatonin 3 Mg Tablet) 6 mg PO BEDTIME PRN PRN Reason: Insomnia Nitroglycerin (Nitroglycerin 0.4 Mg Tab.Subl) 0.4 mg SUBLINGUAL Q5MX3 PRN PRN Reason: Chest Pain Ondansetron HCl (Ondansetron Hcl 4 Mg/2 Ml Vial) 4 mg IVPUSH Q8H PRN PRN Reason: Nausea and Vomiting Polyethylene Glycol (Polyethylene Glycol 3350 17 Gm Powd.Pack) 17 gm PO DAILY PRN PRN Reason: Constipation Potassium Chloride (Potassium Chloride Er 20 Meq Tab.Er.Prt) 20 meq PO DAILY MATHEW Last Admin: 01/16/25 09:23 Dose: 20 meq Senna (Sennosides 8.6 Mg Tablet) 17.2 mg PO BEDTIME [facility] Sodium Chloride (0.9 % Sodium Chloride Flush 3 Ml Syringe) 3 ml IVFLUSH QSHIFT [facility] Last Admin: 01/16/25 09:41 Dose: 3 ml Warfarin Sodium (Warfarin Sodium 0.5 Mg Halftab) 1.5 mg PO DAILY@1800 [facility] Home Medications ?Medication ?Instructions ?Recorded ?Confirmed ?Last Taken ?Type CPAP (CPAP Machine/Device) 06/30/22 11/11/24 Unknown History Oxygen Home Use 06/30/22 11/11/24 Unknown History nebulizers 06/30/22 11/11/24 Unknown History epinephrine 0.3 mg/0.3 mL 0.3 mg IM USEASDIRECTD PRN 07/14/22 01/16/25 Unknown History injection, auto-injector Allergic Reaction levothyroxine 25 mcg tablet 50 mcg PO SUSA@0600 01/05/24 01/16/25 01/15/25 History (Synthroid) docusate sodium 100 mg capsule 100 mg PO BID 01/14/24 01/16/25 01/15/25 History diazepam 5 mg tablet 2.5 mg PO BID PRN anxiety 11/21/24 01/16/25 1 Week Ago History ~01/09/25 chlorhexidine gluconate 0.12 % 10 ml PO BID 01/16/25 01/16/25 01/15/25 History mouthwash ferrous gluconate 324 mg (38 mg 324 mg PO QAM 01/16/25 01/16/25 01/15/25 History iron) tablet folic acid 1 mg tablet 1 mg PO DAILY 01/16/25 01/16/25 01/15/25 History levothyroxine 25 mcg tablet 25 mcg PO MOTUWETHFR@0600 01/16/25 01/16/25 01/15/25 History (Synthroid) potassium chloride 20 mEq oral 20 meq PO DAILY 01/16/25 01/16/25 01/15/25 History packet rosuvastatin 10 mg tablet 10 mg PO MOWEFR@2100 01/16/25 01/16/25 01/13/25 History warfarin 1 mg tablet (Jantoven) mg PO DAILY 01/16/25 Unknown History Physical Exam Vital Signs: Vital Signs: Last Vital Signs Temp 0 F L 01/16/25 14:59 Pulse 72 01/16/25 14:59 Resp 13 01/16/25 14:59 BP 110/53 L 01/16/25 14:59 Pulse Ox 99 01/16/25 14:59 O2 Del Method Room Air 01/16/25 14:59 O2 Flow Rate 2 01/16/25 12:23 Oxygen Flow Rate 2 01/15/25 19:26 BMI result Body Mass Index 23.3 GENERAL APPEARANCE: In no distress. On supplemental oxygen. NECK/THYROID: no carotid bruit, no JVD. SKIN: no suspicious lesions, warm and dry. HEART: no murmurs, regular rate and rhythm, S1, S2 normal. LUNGS: clear to auscultation bilaterally. ABDOMEN: normal, bowel sounds present, soft, nontender, nondistended. EXTREMITIES: no clubbing, cyanosis. Mild edema left ankle. PERIPHERAL PULSES: equal. NEUROLOGIC: nonfocal, alert and oriented. Objective Labs and Meds 01/15/25 19:52 01/15/25 19:52 Lab results: Laboratory Results - last 24 hr 01/15/25 01/16/25 01/16/25 19:52 00:02 06:58 WBC 10.9 H RBC 3.64 L Hgb 12.0 Hct 35.3 L MCV 97.0 MCH 33.0 MCHC 34.0 RDW 14.5 Plt Count 208 MPV 10.3 Immature Gran % (Auto) 1.1 H Neut % (Auto) 78.4 H Lymph % (Auto) 9.8 L [place] % (Auto) 9.2 Eos % (Auto) 0.9 Baso % (Auto) 0.6 Lymph # (Auto) 1.1 L [place] # (Auto) 1.0 Eos # (Auto) 0.1 Baso # (Auto) 0.1 Abs Immat Gran (auto) 0.12 H Absolute Neuts (auto) 8.6 H Absolute Nucleated RBC 0.000 Nucleated RBC % (auto) 0.0 Hold Purple Top SEE NOTE PT 21.6 H D 19.8 H INR 1.9 H 1.7 H Sodium 139 Potassium 3.3 D Chloride 100 Carbon Dioxide 29 Anion Gap 13 BUN 24 H Creatinine 0.72 Estim Creat Clear Calc 48.5 Estimated GFR > 60 Random Glucose 115 Calcium 10.3 H Magnesium 2.5 Troponin I High Sens 32.8 H D 48.8 H Urine Color Urine Appearance Urine pH Ur Specific [place] Urine Protein Urine Glucose (UA) Urine Ketones Urine Blood Urine Nitrite Ur Leukocyte Esterase 01/16/25 01/16/25 10:22 12:44 WBC RBC Hgb Hct MCV MCH MCHC RDW Plt Count MPV Immature Gran % (Auto) Neut % (Auto) Lymph % (Auto) [place] % (Auto) Eos % (Auto) Baso % (Auto) Lymph # (Auto) [place] # (Auto) Eos # (Auto) Baso # (Auto) Abs Immat Gran (auto) Absolute Neuts (auto) Absolute Nucleated RBC Nucleated RBC % (auto) Hold Purple Top PT INR Sodium Potassium Chloride Carbon Dioxide Anion Gap BUN Creatinine Estim Creat Clear Calc Estimated GFR Random Glucose Calcium Magnesium Troponin I High Sens 34.0 H Urine Color Yellow Urine Appearance Clear Urine pH 7.5 Ur Specific [place] 1.015 Urine Protein Negative Urine Glucose (UA) Negative Urine Ketones Negative Urine Blood Negative Urine Nitrite Negative Ur Leukocyte Esterase Negative Assessment and Plan (1) Chest pain: Qualifiers: Chest pain type: other chest pain Qualified Code(s): R07.89 - Other chest pain Status: Acute Plan Pleasant 79 year female with complex medical issues as described above presenting with chest pain. She is describing pins and needles like sensation in the chest. This is quite atypical for angina. She has chronic history of chest tightness which happens off and on when she is anxious or ambulating without oxygen. She had cardiac catheterization twice in the past which just showed moderate LAD stenosis. Current presentation does not appear to be acute coronary syndrome. I have advised her to consider Lexiscan as outpatient which she is not very excited about due to side effects of regadenoson. She will think about it. In any case I think she can safely go back home. No changes in medications currently required. Blood pressure and volume status are stable. Not in heart failure. Thank you for allowing me to participate in the care of your patient. Please feel free to contact me if you have any questions. Procedures Date of Service Date of Service: 01/16/25
--- NOTE | 2025-01-17 07:59 | HO.PM.IMPN ---
Subjective Subjective Date of Service: 01/17/25 Physical Exam Vital Signs: Vital Signs: Last Vital Signs Temp 0 F L 01/16/25 14:59 Pulse 72 01/16/25 14:59 Resp 13 01/16/25 14:59 BP 110/53 L 01/16/25 14:59 Pulse Ox 99 01/16/25 14:59 O2 Del Method Room Air 01/16/25 14:59 O2 Flow Rate 2 01/16/25 12:23 Oxygen Flow Rate 2 01/15/25 19:26 BMI result Body Mass Index 23.3 Objective Data Active Medications Acetaminophen (Acetaminophen 325 Mg Tablet) 650 mg PO Q6H PRN PRN Reason: Pain, Mild 1-3,fever,headache Albuterol/Ipratropium (Albuterol/Iprat 2.5/0.5mg 3 Ml Ampul.Neb) 3 ml INHALE Q4H PRN PRN Reason: Shortness of Breath/Wheezing Calcium Carbonate (Calcium Carbonate 750 Mg Tab.Chew) 750 mg PO Q4H PRN PRN Reason: Heartburn Magnesium Hydroxide (Milk Of Magnesia 30 Ml Oral.Susp) 30 ml PO DAILY PRN PRN Reason: Constipation Melatonin (Melatonin 3 Mg Tablet) 6 mg PO BEDTIME PRN PRN Reason: Insomnia Nitroglycerin (Nitroglycerin 0.4 Mg Tab.Subl) 0.4 mg SUBLINGUAL Q5MX3 PRN PRN Reason: Chest Pain Ondansetron HCl (Ondansetron Hcl 4 Mg/2 Ml Vial) 4 mg IVPUSH Q8H PRN PRN Reason: Nausea and Vomiting Polyethylene Glycol (Polyethylene Glycol 3350 17 Gm Powd.Pack) 17 gm PO DAILY PRN PRN Reason: Constipation Potassium Chloride (Potassium Chloride Er 20 Meq Tab.Er.Prt) 20 meq PO DAILY [facility] Last Admin: 01/16/25 09:23 Dose: 20 meq Documented By: CLEO Senna (Sennosides 8.6 Mg Tablet) 17.2 mg PO BEDTIME [facility] Sodium Chloride (0.9 % Sodium Chloride Flush 3 Ml Syringe) 3 ml IVFLUSH QSHIFT [facility] Last Admin: 01/16/25 09:41 Dose: 3 ml Documented By: SADIE Warfarin Sodium (Warfarin Sodium 0.5 Mg Halftab) 1.5 mg PO DAILY@1800 [facility] Labs 01/15/25 19:52 01/15/25 19:52 Labs: Laboratory Results - last 24 hr 01/16/25 10:22 Urine Color Yellow Urine Appearance Clear Urine pH 7.5 Ur Specific [place] 1.015 Urine Protein Negative Urine Glucose (UA) Negative Urine Ketones Negative Urine Blood Negative Urine Nitrite Negative Ur Leukocyte Esterase Negative Quality Stroke Does the patient have a stroke diagnosis?: No Reason for No Anti-thrombotic by Day Two: N/A - Med Ordered VTE Prior VTE?: No VTE Risk Level:: Medical - moderate - high VTE Device Contraindication: N/A - Device Ordered VTE Drug Contraindication: N/A - Med Ordered
== END 2025-01-16 15:00 | disposition home or self-care (01) ==
LOC: HO.ED 01-16 05:09 → HO.EDOVER 01-16 05:31
PROVIDERS: Nurse Practitioner Family; Admitting Provider Student in an Organized Health Care Education/Training Program; Emergency Provider Emergency Medicine Emergency Medical Services; Visit Provider Student in an Organized Health Care Education/Training Program
DX: R07.9 Chest pain, unspecified (principal); I20.89 Other forms of angina pectoris; E78.5 Hyperlipidemia, unspecified; K21.9 Gastro-esophageal reflux disease without esophagitis; E03.9 Hypothyroidism, unspecified; I50.30 Unspecified diastolic (congestive) heart failure; I11.0 Hypertensive heart disease with heart failure; Z99.81 Dependence on supplemental oxygen; Z85.118 Personal history of other malignant neoplasm of bronchus and lung; Z86.718 Personal history of other venous thrombosis and embolism; Z79.01 Long term (current) use of anticoagulants; Z79.899 Other long term (current) drug therapy
CPT/HCPCS: 36415; 71045; 80048; 81003; 83735; 84484; 85025; 85610; 93005; 99222; 99285

== ENCOUNTER → 2025-01-15 19:16 | Outpatient (BNV) | payer MEDICARE, SELFPAY | PROVIDERS: Admitting Provider Student in an Organized Health Care Education/Training Program; Emergency Provider Emergency Medicine Emergency Medical Services; Visit Provider Internal Medicine Cardiovascular Disease | DX: I45.2 Bifascicular block (principal) | CPT/HCPCS: 93010 ==

== ENCOUNTER → 2025-01-15 23:47 | Outpatient (BNV) | payer MEDICARE, SELFPAY | PROVIDERS: Emergency Provider Emergency Medicine Emergency Medical Services; Visit Provider Radiology Diagnostic Radiology | DX: R06.02 Shortness of breath (principal) | CPT/HCPCS: 71045 ==

== ENCOUNTER → 2025-01-16 05:04 | Outpatient (BNV) | payer MEDICARE, SELFPAY | PROVIDERS: Admitting Provider Student in an Organized Health Care Education/Training Program; Emergency Provider Emergency Medicine Emergency Medical Services; Visit Provider Internal Medicine Cardiovascular Disease | DX: R07.89 Other chest pain (principal) | CPT/HCPCS: 99222 ==

== ENCOUNTER → 2025-01-16 05:04 | Outpatient (BNV) | payer MEDICARE, SELFPAY | PROVIDERS: Admitting Provider Student in an Organized Health Care Education/Training Program; Emergency Provider Emergency Medicine Emergency Medical Services; Visit Provider Nurse Practitioner Family | DX: R07.89 Other chest pain (principal) | CPT/HCPCS: 99239; 99499 ==

== ENCOUNTER 2025-01-30 09:00 | Outpatient (REF) | payer MEDICARE, SELFPAY ==
--- OUTSIDE RECORDS SUMMARY | 2025-01-30 09:29 | XMS_ITS | Encounter Summary ---
Author Organization [facility] Address [address] [place] [phone] Care Team Providers Care Emergency Man Name Role Phone Caitlyn Bowie MD Primary Care Provider +1- [phone] Encounter Details Date Type Department Care Team (Late st Contact Info) Description 07/08/2020 Scanned Document [facility] Health Information Management [address] [place] [address] External, Provider Social History Tobacco Use Types [...] at [facility] [address] [facility] [address] [place], [place] [id number] Ronald Mills MD [address] [place] [address] [address] [place] [address] documented as of this encounter [...] as of this encounter Care Teams Emergency Man Relationship Specialty Start Date End Date Caitlyn Bowie MD [address] [address] PCP - General Internal Medicine 05/06/21 documented as of this encounter
--- OUTSIDE RECORDS SUMMARY | 2025-01-30 09:30 | XMS_ITS | Encounter Summary ---
Author Organization [facility] Address [address] [place] [address] Phone Care Team Providers Care Abatement Worker Name Role Phone Caitlyn Bowie MD Primary Care Provider +1- [phone] Encounter Details Date Type Department Care Team (Late Contact Info) Description 12/10/2024 Documentation Only [facility] [address] [place] [address] Marina Abdi [address] [place] [address] Social History Tobacco Use Types [...] Care Team (Late st Contact Info) Description 06/12/2025 3:00 PM EST Office Visit [facility] [address] [place] [address] Rubén Ashraf MD [address] [place] [address] [place] [address] documented as of this encounter Visit Diagnoses Not on filedocumented in this encounter Care Teams Abatement Worker Relationship Specialty Start Date End Date Caitlyn Bowie MD [address] [place], [place] PCP - General Internal Medicine 09/24/24 documented as of this encounter
--- OUTSIDE RECORDS SUMMARY | 2025-01-30 09:30 | XMS_ITS | Clinical Summary ---
Author Organization [facility] Address [address] [place] [address] Care Team Providers Care Dry Cleaning Machine Operator Helper Name Role Phone Caitlyn Bowie MD Primary Care Provider +1- [phone] Allergies Active Allergy Reactions Criticality Noted Date [...] Breath High 05/09/2008 Bronchospasm or Wheezing Ipratropium [place] Unknown/Patient and Family Unable to Define Medium [...] 1 capsule by mouth daily. Active B Zofakbg-B-Ayvat Acid (STRESS 500 B-COMPLEX PO) Take 1 [...] Chew Tab Chew 15 mg. 2 Active Encounters Date Type Department Care Team Description 11/22/2024 Telephone [facility] Neurology Sports [address] [phone] Yary Whitten DO from Last 3 Months Family History Medical History Relation Name Comments [...] 83 03/20/2023 1:00 PM EDT Temperature 36.8 C (98.2 F) 03/20/2023 1:00 PM EDT Respiratory Rate - - Oxygen Saturation 96% [...] - 1-dose 75+ series) 2018 COVID-19 Vaccine ( - season) 2024 09/03/2020, 08/06/2020 Influenza Vaccine 02/07/2025 05/13/2022, , 05/15/2021, Additional history exists Hepatitis B Vaccines Aged Out No long er eligible based on patient's age to complete this topic Insurance MEDICARE PART A & B MEDICARE PART A & B [facility] Care Teams Dry Cleaning Machine Operator Helper Relationship Specialty Start Date End Date Caitlyn Bowie MD [address] [place] [address] PCP - General Internal Medicine 03/20/23
--- OUTSIDE RECORDS SUMMARY | 2025-01-30 09:30 | XMS_ITS | Clinical Summary ---
Author Organization [facility] Address [address] [place] [address] Phone Care Team Providers Care Claims Assistant Name Role Phone Caitlyn Bowie MD Primary Care Provider +1- [phone] Allergies Active Allergy Reactions Criticality Noted Date [...] 3 (three) times a week. 4 Active Active Problems Problem Noted Date Diagnosed [...] 20 mg as needed by her previous sparker and patcher which she has taken sporadically. I have asked her to take this daily to see if this improves her symptoms and she has a follow-up appointment with Dr. Shah on September 16 which she will keep. We also had a long conversation regarding the fact that she is seeing 3 different sparker and patcher for the same problems. We informed her [...] continues to see Dr. Avalos or her sparker and patcher at [facility]. She verbalized understanding of this and expressed [...] right lower leg 03/06/2019 Antiphospholipid antibody syndrome ([facility] V24) 12/24/2018 Adrenal insufficiency ([facility] V24) 08/23/2018 Allergic rhinitis 08/23/2018 Hyperparathyroidism ([facility] V24) 08/23/2018 MRSA infection 08/23/2018 Overview (05/16/2024): 06/2009, s/p thoracotomy infection Osteoarthritis 08/23/2018 Radiation-induced pulmonary fibrosis ([facility] V2 4) 11/13/2017 Bronchiectasis ([facility] V24, [facility] V28) 2017 Leg edema 08/08/2017 Restrictive lung disease 08/08/2017 Chronic obstructive pulmonar y disease ([facility] V24, [facility] V28) 04/13/2017 Fibromyalgia 04/13/2017 Congestive heart failure ([facility] V24, [facility] V 28) 04/04/2017 Heterozygous factor V Leiden mutation ([facility] V 24) 04/04/2017 Obstructive sleep apnea syndrome 04/04/2017 Overview (05/16/2024): CPAP Pleural effusion 04/04/2017 Pulmonary hypertension ([facility] V24, [facility] V28 ) 04/04/2017 Multiple pulmonary nodules 03/17/2017 [...] Encounters Date Type Department Care Team Description 01/19/2025 7:49 PM EDT - 01/19/2025 9:08 PM EDT Emergency [facility] Emergency [address] [place] [phone] Discharge Disposition: Home or Self Care 12/23/2024 9:00 AM EDT Office Visit V[facility] Surgery - [place] [address] [place] [phone] Jerry Li MD Complex regional pain syndrome type 1 of both lower extremities (Primary Dx); Leg swelling 12/10/2024 2:43 PM EDT - 12/10/2024 4:57 PM EDT Emergency [facility] Emergency [address] [place] [address] Head injury, initial encounter (Primary Dx) Discharge Disposition: Home or Self Care 12/10/2024 1:30 PM EDT Office Visit [facility] [address] [facility] [address] [place] [address] Shirley Chaidez PA 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) 11/04/2024 Telephone Gastroenterology - [address] [facility] [address] [place] [address] Tim Gomes MD Provider Call Back from Last 3 Months Immunizations Name Administration [...] PROCEDURE: HISTORICAL TONSILLECTOMY OTHER SURGICAL HISTORY PROCEDURE: MO RMVL LUNG [...] pathology report UPPER GASTROINTESTINAL ENDOSCOPY 05/03/2015 PROCEDURE: MO UPPER GI ENDOSCOPY PERFORMED MITRAL CLIP PROCEDURE [...] dori pect Heterozygous factor V Leiden mutation ([facility] V24) 04/04/2017 DX:Heterozygous factor V Lei den [...] syndrome 02/18/2013 DX:Postc oncussion syndrome Pulmonary hypertension ([facility] V24, [facility] V28) 04/04/2017 DX:Pulmonary hypertension (H CC) Restrictive lung disease 08/08/2017 DX:Rest rictive lung disease 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 DX:Zinc deficien cy Obstructive sleep apnea syndrome 04/04/2017 DX:Obstructive sleep apnea syndrome; COMMENT: CPAP Radiation-induced pulmonary fibrosis ([facility] V24) 11/13/2017 DX:Radiation-induced pulmona ry fibrosis (HCC) Adrenal insufficiency ([facility] V24) 08/23/2018 DX:Adrenal insufficiency (HCC) Hyperparathyroidism ([facility] V24) 08/23/2018 DX:Hyperparathyroidism (HCC) Osteoporosis 11/17/2016 DX:Osteoporosis History of rheumatic fever 12/12/2015 DX:Hi story of rheumatic fever; COMMENT: With [facility] Allergic rhinitis 08/23/2018 DX:Allergic rh initis Osteoarthritis 08/23/2018 DX:Osteoarthriti s History of seizures 08/23/2018 DX:History o f seizures; COMMENT: Temporal lobe seizures MRSA infection 08/23/2018 DX:MRSA infectio n; COMMENT: 06/2009, s/p thoracotomy infection History of lung cancer 04/04/2017 DX:Histor y of lung cancer; COMMENT: T2 N2 Mx LLL resection, Chemo, RT, Cisplatin, Vinorelbine [id number] Antiphospholipid antibody sy ndrome ([facility] V24) 12/24/2018 DX:Antiphospholipid antibody syndrome (HCC) 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 Hyperparathyroidism ([facility] V24) DX:Hyperparathyroidism (HCC) Adrenal insufficiency ([facility] V24) DX:Adrenal insufficiency (HCC) Family History Medical [...] Sign Reading Time Taken Comments Blood Pressure 140/74 01/19/2025 7:58 PM EDT Pulse 88 01/19/2025 7:58 PM EDT Temperature 37 C (98.6 F) 01/19/2025 7:58 PM EDT Respiratory Rate 18 01/19/2025 7:58 PM EDT Oxygen Saturation 98% 01/19/2025 7:58 PM EDT Inhaled Oxygen Concentration - - Weight 58.5 kg (129 lb) 01/19/2025 7:58 PM EDT Height 160 cm (5' 3 ) 01/19/2025 7:58 PM EDT Body Mass Index 22.85 01/19/2025 7:58 PM EDT Plan of Treatment Upcoming Encounters Date Type Department Care Team (Late st Contact Info) Description 02/21/2025 4:30 PM EDT Office Visit [facility] [address] [place] [phone] Shirley Chaidez PA [address] [place] [address] Health Maintenance Due Date Last Done Comments Zoster Vaccines (1 of 2) 1964 RSV Immunization Adult Patients (1 - 1-dose 75+ series) 2018 COVID-19 Vaccine (3 - Moderna risk series) 10/01/2020 09/03/2020, 08/06/2020 Cholesterol Screening (Lipid Panel) 06/12/2022 03/18/2016 Falls Risk Assessment 06/12/2022 Medicare Annual Wellness Visit 06/12/2022 Osteoporosis Screening (Bone Density Screening) 06/12/2022 Social Influencers of Health Screening 06/12/2022 Depression Screening 07/10/2024 Influenza Vaccine (#1) 2025 , 05/13/2023, 05/13/2022, Additional history exists Hypertension/CHF/CAD Annual BMP Blood Test 06/15/2025 06/15/2024, 04/23/2024, 04/05/2022, Additional history exists DTaP,Tdap,and Td Vaccines (3 - Td or Tdap) 02/27/2026 02/28/2016, 02/17/2016 Pneumococcal Vaccine: 50+ Years Completed 08/31/2021, 03/25/2016, 09/17/2015, Additional history exists HIB Vaccines Aged Out [...] Signed Date: 12/10/2024 16:12 ET Workstation ID: [id number] Transcribed By: Self Edit Transcribed Date: 12/10/2024 [...] Signed Date: 12/10/2024 16:12 ET Workstation ID: [id number] Transcribed By: Self Edit Transcribed Date: 12/10/2024 16:10 ET Kelly KAPOOR IM CT PROCEDURES Final Resul t * (ABNORMAL) Comprehensive metabolic panel (06/15/2024 1:26 PM EST) Sodium 140 133 - 145 mmol/L LAB CHEMISTRY METHOD 06/15/2024 2:10 PM [facility] Potassium 4.7 3.5 - [...] [facility] Comment:Calculation based on the Chronic Kidney [...] g/dL LAB CHEMISTRY METHOD 06/15/2024 2:10 PM [facility] Albumin 3.3 3.2 - 5.0 g/dL LAB CHEMISTRY METHOD 06/15/2024 2:10 PM [facility] Total Bilirubin 0.4 0.0 - 1.4 mg/dL LAB CHEMISTRY METHOD 06/15/2024 2:10 PM [facility] Blood Venous blood specimen / Unknown Venipuncture / Unknown 06/15/2024 1:26 PM EST 06/15/2024 1:32 PM EST us Cinda Cruz MD LAB BLOOD ORDERABLES Final Resul t [facility] [address] [place] [address], [place] [phone] from Last 3 Months or Most Recently Relevant to Health Maintenance Insurance MEDICARE BLUE CROSS - [place] MEDICARE ADVANTAGE Advance Directives Documents on File Type Date Recorded Patient Sap Specialist Expl anation Health Care Decision (hx) 10/18/2013 [...] (hx) 10/04/2013 AD LACEY DIRECTIVE Care Teams Claims Assistant Relationship Specialty Start Date End Date Caitlyn Bowie MD [address] [place] [address] PCP - General Internal Medicine 12/10/24
--- OUTSIDE RECORDS SUMMARY | 2025-01-30 09:30 | XMS_ITS | Clinical Summary ---
Author Organization [facility] Address [address] [place] [address] Care Team Providers Care Machine Cloth Examiner Name Role Phone Brennan Burnett MD Primary Care Provider [phone] Allergies Active Allergy Reactions Criticality Noted Date [...] 1-dose 75+ series) 2018 Influenza Vaccine (#1) 2025 04/27/2020 DTap / Tdap / Td (2 - Td or Tdap) 02/16/2026 016 Hepatitis B Vaccines Aged Out No long er eligible based on patient's age to complete this topic RSV Ped < 20 months Aged Out No longe r eligible based on patient's age to complete this topic Care Teams Machine Cloth Examiner Relationship Specialty Start Date End Date Brennan Burnett MD [address] [place] [address] PCP - General Internal Medicine 07/06/20
--- OUTSIDE RECORDS SUMMARY | 2025-01-30 09:30 | XMS_ITS | Patient Health Record ---
Author Organization [facility] Address [address] [facility] [address] [place] [address] Care Team Providers Care Ep Technologist Name Role Phone EVELIN RAMSAY Primary Care Provider Yenny Hou Unavailable [phone] Allergies Allergen (clinical drug ingredient) Drug/Non Drug [...] 11:35:04 PM Interpretation: Performing Lab:[facility], [address] [facility], Phone - [phone], Director - Arely Notes/Report: Urine Culture, Routine-[id number] Reviewed date:05/04/2024 11:35:22 PM Interpretation: Performing Lab:[facility], [address] [facility], [place], Phone - [phone], Director - Arely Notes/Report: Urine Culture, Routine Final report Result 1 Culture shows less than 10,000 colony forming units of bacteria per milliliter of urine. This colony count is not generally considered to be clinically significant. Urinalysis, Complete-[id number] Reviewed date:05/04/2024 11:35:42 PM Interpretation: Performing Lab:[facility], [address], [place], Phone - [phone], Director - Arely Notes/Report: Specific [place] 1.009 1.005-1.030 pH 6.5 5.0-7.5 Urine-Color Yellow [...] Advair HFA 230-21G/ACT 2 Inhalation tw ice daily; Duration: -3 06/10/2014 Active Estradiol 10 MCG 1 tablet Vaginal Two times a Week; Duration: 90 days 07/09/2024 Active EpiPen Active Clindamycin Phosphate 2 % 1 application at bedtime Vaginal EVERY NIGHT; Duration: 7 days 07/09/2024 Active Rosuvastatin Calcium 05/03/2024 Active predniSONE 2.5 MG Oral; Duration: 30 Active Cefpodoxime Proxetil 200 MG 1 tablet with food Orally every 12 hrs; Duration: 14 day(s) 05/13/2024 Not-Taking Metoprolol Succinate ER 50 MG 1 tablet Orally Once a day Active coumadin 1 tab Oral scaled Ac tive Synthroid 25MCG 1 ORAL daily; Durati on: -3 [facility] 06/10/2014 Active ZyrTEC Allergy 10MG 1 ORAL daily; Durati on: -3 06/10/2014 Active Furosemide 20 MG TAKE ONE TABLET BY MOUTH EVERY DAY NEEDED FOR LEG SWELLING Oral; Duration: 90 Active Vitamin C 500 MG as directed Orally Active Singulair 10 MG 1 tablet Orally Once a day Active Azelastine HCl 0.15 % TWO SPRAYS INTO EA CH NOSTRIL TWO TIMES A DAY Nasal; Duration: 25 Active Potassium Active traZODone HCl 50MG 1 ORAL at bedtime; Duration: -3 [facility] 06/10/2014 Active Meclizine HCl 25 MG 1 tablet as needed Orally [facility] 06/10/2014 Active Albuterol Sulfate (2.5 MG/3ML)0.083% Inhalation 4 x a day prn 06/10/2014 Active Valium 5MG 1 tablet as needed O RAL at bedtime, 1/2 tab prn during the day [facility] 06/10/2014 Active Social History Tobacco [...] Status Risk Notes Problem Postmenopausal atrophic vaginitis (84445008) Postmenopausal atrophic vaginitis (N95.2) Active confirmed Problem Age-related osteoporosis (793387844) Age-related osteoporosis without current pathological fracture (M81.0) Active confirmed Problem Urgent desire to urinate (96813101) Urgency of urination (R39.15) Active confirmed Problem 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) Active confirmed Problem Chronic systolic heart failure (223115809) Chronic systolic (congestive) heart failure (I50.22) Active confirmed Problem Chronic obstructive pulmonary disease (56879728) Chronic obstructive pulmonary disease, unspecified (J44.9) Active confirmed Problem Functional 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) Active confirmed Problem Personal history of primary malignant neoplasm of bronchus (151092337) 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) Active confirmed Vital Signs Temperature 97.7 degrees Fahrenheit 07/18/2024 Blood pressure diastolic 62 mm Hg 07/18/2024 Height 63 in 07/18/2024 Blood pressure systolic 102 mm Hg 07/18/2024 Weight 126 lbs 07/18/2024 BMI 22.32 kg/m2 07/18/2024 Encounters Encounter Location Date Provider Diagnosis [facility] [address] [address] 05/03/2024 Yennydorothy Elizalde Urgency of urination R39.15 and Abscess of vulva N76.[address] [address] 05/10/2024 Yenny Elizalde Abscess of vulva N76 .[address] [address] 05/17/2024 Yenny Elizalde Abscess of vulva N76 .[address] [address] 07/09/2024 Yenny Tonio Urgency of urination R39.15 ; Acute vaginitis N76.0 and Postmenopausal atrophic vaginitis N95.[address] [address] 07/18/2024 Yenny Elizalde Encounter for screening mammogram for malignant neoplasm of breast Z12.31 and Mastodynia N64.[address] [address] 05/10/2024 Yenny Elizalde [facility] [address] [address] 05/13/2024 Yenny Lovettva [facility] [address] [place] [address] 06/11/2024 Yenny Spearanueva Assessments Encounter Date Diagnosis (ICD Code) Assessment [...] HER TO BE SEEN AND EVALUATED AT [facility]. CALLED [facility] AND DISCUSSED THIS PAT. THEY AGREED TO [...] Date MEDICARE [address] VEDA NIEVES [id number] SHIRLEY CINDA Self - patient is the insured MEDEX [address] [place] [address] [id number] CINDA WATSON Self - patient is the insured Medical (General) History Medical History History ICD Code Other asthma J45.998 Cardiac murmur, unspecified R01.1 Epilepsy, unspecified, intractable, with out status epilepticus G40.919 Right Breast Fibroid Lung Cancer 2009 Postmenopausal atrophic vaginitis N95.2 Age-related osteoporosis without [...]
--- OUTSIDE RECORDS SUMMARY | 2025-01-30 09:30 | XMS_ITS ---
Author Name [facility] Organization Unknown History of Medication Use Medication Directions Dispensed Refills Start Date End Date Stat folic acid (FOLVITE) 1 mg tablet Take 1 tablet (1 mg total) by mouth daily. 05/01/2024 active augmented betamethasone dipropionate (DIPROLENE-AF) 0.05 % cream Apply topically 2 (two) times daily. To both legs 09/13/2023 active triamcinolone (KENALOG) 0.1 % ointment Apply topically 2 (two) times daily. 08/03/2023 active tacrolimus (PROTOPIC) 0.1 % ointment Apply topically 2 (two) times daily. 03/02/2023 active cefPODOXime (VANTIN) 200 mg tablet TAKE 1 TABLET BY MOUTH TWICE DAILY FOR 7 DAYS. TAKE WITH MEAL/FOOD. 11/09/2022 active ferrous gluconate (FERGON) 324 mg (38 mg iron) tablet Take 1 tablet (324 mg total) by mouth daily with breakfast. 03/02/2022 active metoprolol succinate XL (TOPROL-XL) 25 mg 24 hr tablet Take 1 tablet (25 mg total) by mouth 2 (two) times daily with breakfast and dinner. Take with or immediately following a meal. 09/02/2021 active iron polysaccharides (NIFEREX) 150 mg iron capsule Take 1 capsule (150 mg total) by mouth daily. 08/05/2021 active rosuvastatin (CRESTOR) 10 mg tablet rosuvastatin 10 mg tablet TAKE 1 TABLET BY MOUTH EVERY 2 DAYS. 05/14/2021 active rosuvastatin (CRESTOR) 10 mg tablet Take 1 tablet (10 mg total) by mouth Every Monday, Monday, and Monday. 05/14/2021 active fluticasone propion-salmeteroL (ADVAIR HFA) 230-21 mcg/actuation inhaler Advair HFA 230 mcg-21 mcg/actuation aerosol inhaler INHALE 2 PUFFS TWICE DAILY. 07/06/2020 active metoprolol succinate XL (Toprol XL) 50 mg 24 hr tablet Take 50 mg by mouth. 07/05/2020 active albuterol 2.5 mg /3 mL (0.083 %) nebulizer solution Inhale 1 vial every 4 (four) hours as needed. 10/09/2018 active omeprazole (PRILOSEC) 40 MG capsule Take 1 capsule (40 mg total) by mouth daily. 12/21/2017 active torsemide (DEMADEX) 10 MG tablet 08/31/2017 active furosemide (LASIX) 20 mg tablet furosemide 20 mg tablet TAKE ONE TABLET BY MOUTH EVERY DAY NEEDED FOR LEG SWELLING 08/07/2017 active furosemide (LASIX) 20 MG tablet Take 1 tablet (20 mg total) by mouth daily as needed.. 08/07/2017 active clindamycin (CLEOCIN) 150 MG capsule TAKE FOUR CAPSULES BY MOUTH ONE HOUR PRIOR TO APPOINTMENT 06/14/2017 active Ergocalciferol (Vitamin D2) 10 MCG (400 UNIT) Tab 02/04/2016 active levothyroxine (SYNTHROID, LEVOTHROID) 100 MCG tablet 02/04/2016 active meclizine (ANTIVERT) 6.25 MG tablet 02/04/2016 active meclizine (ANTIVERT) 6.25 MG tablet 02/04/2016 active montelukast (SINGULAIR) 10 mg tablet montelukast 10 mg tablet TAKE ONE TABLET BY MOUTH EVERY DAY 02/04/2016 active traZODone (DESYREL) 50 mg tablet trazodone 50 mg tablet TAKE TWO TABLETS BY MOUTH AT BEDTIME 01/06/2016 active traZODone (DESYREL) 50 MG tablet take 1 to 2 tablets by mouth at bedtime 01/06/2016 active EPIPEN 2-KORI 0.3 mg/0.3 mL (1:1,000) AtIn 0.3 mg once as needed. 09/16/2015 active SYNTHROID 25 mcg tablet Take 1 tablet by mouth 5 days a week and 2 tablets 2 days a week 01/08/2013 active albuterol (PROVENTIL HFA) 90 mcg/actuation HFA inhaler Inhale 2 puffs into the lungs every 4 (four) hours as needed. active albuterol (PROVENTIL, VENTOLIN) 2.5 mg /3 mL (0.083 %) nebulizer solution Inhale 1 vial into the lungs every 4 (four) hours as needed.. active ASCORBATE CALCIUM (VITAMIN C ORAL) Take 1,000 mg by mouth daily On occasion. active Bacillus coagulans (PROBIOTIC, B. COAGULANS, ORAL) Take 1 capsule by mouth daily active cetirizine (ZYRTEC) 10 MG tablet Take 1 tablet (10 mg total) by mouth daily. active cholecalciferol, vitamin D3, 125 mcg (5,000 unit) tablet Take 1 tablet (5,000 Units total) by mouth daily. active cyanocobalamin 1,000 mcg/mL injection vial Inject 1 mL (1,000 mcg total) into the muscle every 30 (thirty) days. Dose uncertain active diazepam (VALIUM) 5 MG tablet Take 1 tablet (5 mg total) by mouth nightly as needed for anxiety. active docusate sodium (COLACE) 100 mg capsule Take 200 mg by mouth in the morning and 200 mg in the evening. active docusate sodium (COLACE) 100 MG capsule Take 2 capsules (200 mg total) by mouth 2 (two) times daily. active EPINEPHrine 0.3 mg/0.3 mL IJ auto-injection Inject as directed See Admin Instructions. active fluticasone propionate (FLONASE) 50 mcg/actuation nasal spray Use 1 spray in each nostril daily. active fluticasone-salmeterol (ADVAIR HFA) 230-21 mcg/actuation inhaler Inhale 2 puffs into the lungs 2 (two) times daily. active magnesium oxide 500 mg Cap Take 500 mg by mouth daily. active meclizine (ANTIVERT) 25 MG tablet Take 1 tablet (25 mg total) by mouth 3 (three) times daily as needed. active montelukast (SINGULAIR) 10 mg tablet Take 1 tablet (10 mg total) by mouth nightly. active predniSONE (DELTASONE) 5 mg tablet Take 0.5 tablets (2.5 mg total) by mouth every other day. Take with food. active Probiotic Product (PROBIOTIC BLEND PO) Take 1 capsule by mouth daily. active umeclidinium-vilantero l (umeclidinium-vilanter ol) 62.5-25 MCG/INH inhaler Incruse Ellipta 62.5 mcg/actuation powder for inhalation active vitamin B complex (B COMPLEX ORAL) Take by mouth. active warfarin (COUMADIN) 1 MG tablet 1 tablet active warfarin (COUMADIN) 2 mg tablet Take 2 mg by mouth. active warfarin (COUMADIN) 2 MG tablet Take 1 tablet (2 mg total) by mouth Daily @1800. Monday, Monday, Monday and 3mg on Monday, Monday, active warfarin (COUMADIN) 3 MG tablet Take 3 mg by mouth Daily @1800 Monday, Monday, and 2mg on Monday, Monday, Monday active Allergies Allergen Reaction Severity Comment Documented Date Source Status ERYTHROMYCIN BASE 08/23/2022 [facility] active AVANAFIL 07/27/2022 [facility] active AZITHROMYCIN UNKNOWN/PATIENT AND FAMILY UNABLE TO DEFINE 01/04/2022 [facility] active DICLOFENAC UNKNOWN/PATIENT AND FAMILY UNABLE TO DEFINE 12/18/2021 [facility] active BEE VENOM PROTEIN (HONEY BEE) 09/06/2021 [facility] active ISOSORBIDE MONONITRATE HEADACHE 11/23/2020 [facility] active BARIUM SULFATE 09/16/2016 [facility] active SULFA ANTIBIOTICS UNKNOWN/PATIENT AND FAMILY UNABLE TO DEFINE 02/04/2016 [facility] active VANCOMYCIN 01/19/2016 [facility] active DIATRIZOATE JOSE-DIATRIZOAT SOD SWELLING Throat tightness 09/23/2015 [facility] active DIATRIZOATE MEGLUMINE & SODIUM SWELLING Throat tightness 09/23/2015 [facility] active METRONIDAZOLE HCL RESP DISTRESS Visual changes, back pain, weakness 10/17/2014 [facility] active DICLOFENAC SODIUM 09/26/2014 [facility] active CIPROFLOXACIN ANAPHYLAXIS Patient reported that she couldn't walk 08/26/2014 [facility] active LEVOFLOXACIN OTHER (SEE COMMENTS)SHORTNESS OF BREATH painful tight joints 06/25/2013 [facility] active AVOCADO UNKNOWN/PATIENT AND FAMILY UNABLE TO DEFINE Other reaction(s): Resp Distress 04/15/2013 [facility] active MOLD EXTRACTS SHORTNESS OF BREATH 04/15/2013 [facility] active MOLD Other reaction(s): Resp Distress,Other reaction(s): Other (See Comments) 02/18/2013 [facility] active MOLDS & SMUTS UNKNOWN/PATIENT AND FAMILY UNABLE TO DEFINE Other reaction(s): Resp Distress 02/18/2013 [facility] active VANCOMYCIN ANALOGUES RASHSHORTNESS OF BREATH 11/07/2012 [facility] active SULFUR RASH 05/09/2008 [facility] active AMLODIPINE OTHER (SEE COMMENTS)OTHER (SEE COMMENTS) Other reaction(s): Other (See Comments),flus rosalinda [facility] AVOCADO (LAURUS PERSEA) RESP DISTRESS Other reaction(s): Resp Distress [facility] BARIUM IODIDE THROAT CLOSESRASH [facility] BEE POLLEN RESP DISTRESSSHORTNESS OF BREATH Allergic to bee stings [facility] BUSPIRONE ANAPHYLAXIS [facility] CLARITHROMYCIN UNKNOWN/PATIENT AND FAMILY UNABLE TO DEFINESHORTNESS OF BREATH [facility] COLISTIN UNKNOWN/PATIENT AND FAMILY UNABLE TO DEFINE [facility] DIATRIZOATE UNKNOWN/PATIENT AND FAMILY UNABLE TO DEFINE [facility] ERYTHROMYCIN UNKNOWN/PATIENT AND FAMILY UNABLE TO DEFINE [facility] GENTAMICIN SHORTNESS OF BREATH [facility] IODINATED CONTRAST MEDIA SHORTNESS OF BREATHRASH Bronchospasm or Wheezing , ,Throat tightness [facility] IPRATROPIUM BROMIDE UNKNOWN/PATIENT AND FAMILY UNABLE TO DEFINE [facility] METRONIDAZOLE UNKNOWN/PATIENT AND FAMILY UNABLE TO DEFINE [facility] MORPHINE OTHER (SEE COMMENTS)OTHER (SEE COMMENTS) Flushed, almost passed out [facility] MOXIFLOXACIN SWELLINGUNKNOWN/PAT IENT AND FAMILY UNABLE TO DEFINE Other reaction(s): Rash [facility] OTHER MENTAL STATUS CHANGE Some muscle relaxers,Other reaction(s): Mental Status Change, Other (See Comments),musc les relaxers [facility] PENICILLINS SHORTNESS OF BREATH [facility] PROCAINE UNKNOWN/PATIENT AND FAMILY UNABLE TO DEFINEOTHER (SEE COMMENTS) [facility] SHRIMP UNKNOWN/PATIENT AND FAMILY UNABLE TO DEFINE [facility] SULFA (SULFONAMIDE ANTIBIOTICS) SHORTNESS OF BREATH [facility] Problems Problem Status Onset Date Problem Type Date of Resolution Source Chalazion of right lower eyelid active 2014-08-26 [facility]Act [facility] Complicated migraine active 2016-03-18 ProblemAct [facility] Palpitations active 2015-09-18 ProblemAct [facility] Exposed to tobacco smoke by family members smoking indoors active ProblemAct [facility] Moderate mitral regurgitation active 2019-05-13 ProblemAct [facility] MCI (mild cognitive impairment) with memory loss active EncounterDiagnosisAct [facility] Bleeding active 2013-03-18 ProblemAct [facility] Elevated liver enzymes active 2015-09-23 ProblemAct [facility] Anticoagulated on Coumadin active 2013-07-12 ProblemAct [facility] Chronic insomnia active 2016-11-21 ProblemAct [facility] Factor V Leiden active 2013-03-18 ProblemAct [facility] COPD (chronic obstructive pulmonary disease) active ProblemAct [facility] Lung cancer active 2013-06-17 ProblemAct [facility] Excessive daytime sleepiness active EncounterDiagnosisAct [facility] Glaucoma suspect active 2014-08-26 ProblemAct [facility] Nonobstructive atherosclerosis of coronary artery active 2020-07-31 ProblemAct [facility] Optic neuropathy active 2014-08-26 ProblemAct [facility] Zinc deficiency active 2013-04-25 ProblemAct [facility] Other dyspnea and respiratory abnormality active 2013-12-13 ProblemAct [facility] Cataract active 2014-08-26 ProblemAct [facility] Akathisia active 2013-04-15 ProblemAct [facility] Restrictive lung disease active ProblemAct [facility] Cardiac microvascular disease active 2015-12-12 ProblemAct [facility] Bronchiectasis active ProblemAct [facility] Deep vein thrombosis (DVT) (HC Code) (HC CODE) active 2013-03-18 ProblemAct [facility] KANDY on CPAP active ProblemAct [facility] Pneumonia due to organism active 2016-01-19 ProblemAct [facility] Hemoptysis active 2016-09-04 ProblemAct [facility] Hyperlipidemia active 2015-09-18 ProblemAct [facility] Fatigue, unspecified type active EncounterDiagnosisAct [facility] T Pulmonary embolism active 2013-03-18 ProblemAct [facility] S/P mitral valve clip implantation active 2022-08-23 ProblemAct [facility] KANDY on CPAP active 2022-08-23 ProblemAct [facility] Pulmonary hypertension active 2022-08-23 ProblemAct [facility] History of pulmonary embolism active 2022-08-23 ProblemAct [facility] History of adenocarcinoma of lung active 2022-08-23 ProblemAct [facility] Sector visual field defect of both eyes active EncounterDiagnosisAct [facility] Orbital mass active EncounterDiagnosisAct [facility] Eye pain, left active EncounterDiagnosisAct [facility] Immunizations Vaccine Date Source Lot Number Status Influenza, quad, adjuvanted, 0.5mL, preservative free 04/27/2020 [facility] completed Encounters Encounter Type Encounter Reason Primary Diagnosis Location Date [facility] Ambulatory Ocular pain, left eye Ocular pain, left eye [facility] 03/20/2023 Ambulatory Pulmonary hypertension, unspecified [facility] 11/08/2022 Ambulatory Pulmonary hypertension, unspecified [facility] 11/08/2022 Ambulatory [facility] 09/05/2022 Ambulatory Pulmonary hypertension, unspecified [facility] 08/23/2022 Ambulatory [facility] 04/13/2022 Ambulatory [facility] 01/08/2022 Ambulatory [facility] 01/04/2022 Ambulatory [facility] 01/04/2022 Ambulatory [facility] 01/04/2022 Ambulatory [facility] 01/04/2022 Amb[facility] 01/04/2022 Amb[facility] [place] 01/04/2022 Ambulatory Dry eye syndrome of bilateral lacrimal glands [facility] 01/04/2022 Care Team Organization Name Specialty Phone Email Start Date End [facility] EVELIN RAMSAY Primary Care 10/08/2024 [facility] EVELIN RAMSAY Primary Care 03/20/202303/20 [facility] LEANNA NOEL Primary Care 03/20/2023 [facility] EVELINJAYDE RAMSAY Primary Care 08/2308/23/2022 [facility] EVELIN RAMSAY Primary Care 08/23 [facility] 01/08/2022 04/13/20 [facility] NO PCP Primary Care 01/04/2022 01/04/2022 [facility] PCP,No Primary Care 01/04/2022 [facility] LEANNA NOEL Primary Care
--- OUTSIDE RECORDS SUMMARY | 2025-01-30 09:30 | XMS_ITS | Clinical Summary ---
Author Organization [facility] Address [address] [place] [phone] Phone Care Team Providers Care Red Leader Name Role Phone Caitlyn Bowie MD Primary Care Provider + Allergies Active Allergy Reactions Criticality Noted Date Comments Amlodipine Medium 11/23/2020 Other reaction(s): Other (See Comments) flushing Avanafil Anaphylaxis High 07/27/2022 Other reaction(s): Unknown Pt stated that she never taken this medication and do not have a allergy to it Moxifloxacin Hives,Itching,Rash High 05/09/2008 Avocado (Laurus Persea) Anaphylaxis High 04/15/2013 Other reaction(s): Resp Distress Azithromycin 03/05/2013 Barium Iodide Rash,Anaphylaxis High 01/19/2016 Other reaction(s): Throat Closes Barium Sulfate 09/06/2021 Bee Pollen Anaphylaxis High 04/15/2013 Other reaction(s): Resp Distress Allergic to bee stings Allergic to bee stings Bee Venom Protein (Honey Bee) 09/06/2021 Buspirone Anaphylaxis,Headache s High 01/04/2022 Other reaction(s): Dizziness, Feeling of throat tightness Clarithromycin Hypotension,Other (See Comments) 05/09/2008 numbness Colistin Unknown Medium 12/18/2021 Diatrizoate Shiloh-Diatrizoat Sod Swelling High 09/23/2015 Throat tightness Diatrizoate Meglumine Swelling High 09/23/2015 Throat tightness Diclofenac Anaphylaxis,Rash,Ladi rtness Of Breath,Wheezing High 11/07/2012 Erythromycin Anaphylaxis,Rash,Ladi rtness Of Breath,Wheezing High 11/07/2012 Gentamicin Hives,Rash High 05/09/2008 Iodinated Contrast Media Rash,Itching,Other (See Comments) 05/09/2008 Bronchospasm or Wheezing Ipratropium Unknown Medium 12/18/2021 Isosorbide Mononitrate Headaches 11/23/2020 Metronidazole Anaphylaxis High 10/17/2014 Other reaction(s): Resp Distress Visual changes, back pain, weakness Visual changes, back pain, weakness Mold High 02/18/2013 Other reaction(s): Resp Distress Mold Extracts Shortness Of Breath High 04/15/2013 Morphine Nausea And Vomiting,GI Upset Medium 09/26/2014 Flushed, almost passed out Other 05/09/2008 muscles relaxers Penicillins Hives,Rash,Itching 05/09/2008 Procaine 01/19/2016 Other reaction(s): Unknown Shrimp Cough,Itching Medium 12/16/2018 Sulfa (Sulfonamide Antibiotics) Rash,Shortness Of Breath High 11/07/2012 Sulfur Hives,Itching,Rash 05/09/2008 Vancomycin Analogues Anaphylaxis,Rash,Sh o rtness Of Breath,Wheezing High 11/07/2012 Medications albuterol 90 mcg/actuation inhaler INHALE TWO PUFFS BY MOUTH EVERY 6 HOURS NEEDED FOR SHORTNESS OF BREATH OR WHEEZING 021 Active albuterol 2.5 mg /3 mL (0.083 %) nebulizer solution Inhale 1 vial into the lungs every 4 (four) hours as needed. 019 Active EPINEPHrine 0.3 mg/0.3 mL auto-injector USE DIRECTED FOR ANAPHYLAXIS THEN CALL 911 Active furosemide (LASIX) 40 MG tablet Take 80 mg by mouth 2 (two) times a day. Active meclizine (ANTIVERT) 25 mg tablet TAKE ONE TABLET BY MOUTH THREE TIMES A DAY NEEDED FOR MOTION SICKNESS 022 Active metoprolol succinate (TOPROL-XL) 25 MG 24 hr tablet Take 25 mg by mouth 2 (two) times a day. Active rosuvastatin (CRESTOR) 10 MG tabletIndications :M,W,F Take 20 mg by mouth 3 (three) times a week. Indications: M,W,F Active traZODone (DESYREL) 50 MG tablet trazodone 50 mg tablet TAKE TWO TABLETS BY MOUTH EVERY DAY AT BEDTIME Active warfarin (COUMADIN) 2 MG tablet Take 2 mg by mouth. Active warfarin (COUMADIN) 1 MG tablet Take by mouth. Activ e montelukast (SINGULAIR) 10 mg tablet montelukast 10 mg tablet TAKE ONE TABLET BY MOUTH EVERY DAY Active ELDERBERRY FRUIT ORAL Take by mouth. Activ e ASCORBIC ACID, VITAMIN C, ORAL Take by mouth daily. Active magnesium 250 mg Tab Take 500 mg by mouth daily. Active vitamin B complex TbER Take by mouth. Activ e cyanocobalamin, vitamin B-12, (VITAMIN B12 ORAL)Indications: unsure strength Take by mouth. Indications: unsure strength Active predniSONE (DELTASONE) 5 MG tablet Take 2.5 mg by mouth every other day. Active cholecalciferol (VITAMIN D3) 5,000 unit tablet Take 5,000 Units by mouth daily. Active zinc 50 mg Tab tablet Take 50 mg by mouth daily. Active diazePAM (VALIUM) 5 MG tablet Take 2.5 mg by mouth 2 (two) times a day as needed. Active docusate sodium (COLACE) 100 MG capsule Take 200 mg by mouth 2 (two) times a day. Active fluticasone propion-salmetero L (ADVAIR HFA) 230-21 mcg/actuation inhaler Inhale 2 puffs into the lungs 2 (two) times a day. Active multivit with minerals/lutein (MULTIVITAMIN 50 PLUS ORAL) Take 1 tablet by mouth daily. Active potassium chloride SA (KLOR-CON M) 20 MEQ ER tablet Take 20 mEq by mouth daily. Active predniSONE (DELTASONE) 5 MG tabletIndications :Adrenal insufficiency Take 1-3 tablets, for up to 3 days for acute illness 30 tablet 3 Active SYNTHROID 25 mcg tabletIndications :Acquired hypothyroidism TAKE 1 TABLET BY MOUTH FOR 5 DAYS OF THE WEEK, THEN TAKE 2 TABLETS BY MOUTH 2 DAYS OF THE WEEK. 114 tablet 3 025 Active SYNTHROID 25 mcg tabletIndications :Hypothyroidism TAKE 1 TABLET BY MOUTH FOR 5 DAYS OF THE WEEK, THEN TAKE 2 TABLETS BY MOUTH 2 DAYS OF THE WEEK. 114 tablet 1 025 2024 Discontinued SYNTHROID 25 mcg tabletIndications :Hypothyroidism TAKE 1 TABLET BY MOUTH FOR 5 DAYS OF THE WEEK, THEN TAKE 2 TABLETS BY MOUTH 2 DAYS OF THE WEEK. 114 tablet 025 2024 Discontinued(R eorder) Active Problems Problem Noted Date Diagnosed Date Arteriosclerosis of coronary artery 08/14/2023 Chronic heart failure with p reserved ejection fraction (HFpEF) 08/14/2023 Constipation 08/14/2023 Optic neuritis 08/14/2023 Overview (08/14/2023): left eye Thoracic compression fracture 08/14/2023 Acquired hypothyroidism 08/14/2023 Assessment & Plan (01/22/2025 2:22 PM EDT): Taking LT4 consistently, takes close to food with other medications, including iron. TSH in November was normal. Will continue current & monitor. Assessment & Plan (03/28/2024 5:48 PM EDT): Taking LT4 consistently, takes close to food with other medications. Will check TFTs once has been back home, on her usual schedule for 6- 8 weeks & adjust rx as appropriate. Assessment & Plan (08/14/2023 6:35 PM EST): Taking LT4 consistently, takes close to food with other medications. Will check TFTs & adjust rx as appropriate. Adrenal insufficiency 08/14/2023 Assessment & Plan (01/22/2025 2:23 PM EDT): Previous labs have shown evidence of AI w/ low cortisol/ACTH, negative MRI, likely related to exogenous steroids, mainly inhaled, some oral. She has not been treated for this directly, has been on steroids per pulmonary, does not typically feel better on rx (although usually on for illness). Has not been losing weight or hypotensive. Would have low threshold for stress dosing of rx. Reminded her to let providers know she has AI & dose her w/ stress doses with acute illness. Reviewed diagnosis. Assessment & Plan (03/28/2024 5:49 PM EDT): Previous labs have shown evidence of AI w/ low cortisol/ACTH, negative MRI, likely related to exogenous steroids, mainly inhaled, some oral. She had not been treated for this directly, has been on steroids per pulmonary, as did not feel better on rx & was not losing weight or hypotensive. Would have low threshold for stress dosing of rx. Reminded her to let providers know she has AI & dose her w/ stress doses with acute illness. Assessment & Plan (08/14/2023 6:39 PM EST): Previous labs have shown evidence of AI w/ low cortisol/ACTH, negative MRI, likely related to exogenous steroids, mainly inhaled, some oral. She had not been treated for this directly, has been on steroids per pulmonary, as did not feel better on rx & was not losing weight or hypotensive. Would have low threshold for stress dosing of rx. Reminded her to let providers know she has AI & dose her w/ stress doses with acute illness, she tells me that she has not always been listened to/given stress dosing. Encouraged her to continue to let providers know. Age-related osteoporosis wit hout current pathological fracture 08/14/2023 Assessment & Plan (01/22/2025 2:20 PM EDT): Has not tolerated rx tried. To be careful to avoid falls. Assessment & Plan (03/28/2024 5:49 PM EDT): Has not tolerated rx tried. To be careful to avoid falls. Assessment & Plan (08/14/2023 6:39 PM EST): Has not tolerated rx tried. Await full records. Would be careful to avoid falls. Hyperparathyroidism 08/14/2023 Assessment & Plan (01/22/2025 2:20 PM EDT): Longstanding. We have been monitoring. Appears to continue to be mild & stable. Assessment & Plan (03/28/2024 5:49 PM EDT): We have been monitoring given her age, co-morbidities. Appears to continue to be mild & stable. Assessment & Plan (08/14/2023 6:40 PM EST): We have been monitoring given her age, co-morbidities. Appears to continue to be mild & stable. Mitral valve disease 12/02/2022 Assessment & Plan (12/02/2022 9:10 AM EDT): This lady had rheumatic looking mitral valve leaflets and had severe mitral regurgitation with a clip recently done. She has mild to moderate mitral stenosis by last echo which we will evaluate again as mentioned History of adenocarcinoma of lung 08/23/2022 Overview (08/14/2023): S/p LLL lobectomy for stage IIIa lung adenocarcinoma, in remission Diverticulitis 11/24/2021 Antiphospholipid antibody syndrome 09/09/2021 Assessment & Plan (12/02/2022 9:09 AM EDT): This patient is on warfarin for oral anticoagulation she has antiphospholipid antibody syndrome. Assessment & Plan (12/25/2021 4:22 PM EDT): Followed closely by distribution lineman-Dr. Ronald Mills at [facility] hematology- advised to continue Coumadin anticoagulation at reduced INR of 1.5-2 due to her combination of thrombotic history with antiphospholipid antibody syndrome and bleeding manifestations. Based on review of prior labs and review of systems I have not found additional signs or symptoms suggestive for concomitant separate systemic rheumatic disease frequently associated with antiphospholipid antibody syndrome such as systemic lupus erythematosus or less likely Sjogren's syndrome or rheumatoid arthritis. Assessment & Plan (09/09/2021 10:42 PM EST): Followed closely by distribution lineman-Dr. Ronald Mills at [facility] hematology- last seen on 08/05/2021 and advised to continue Coumadin anticoagulation at reduced INR of 1.5-2 due to her combination of thrombotic history with antiphospholipid antibody syndrome and bleeding manifestations. Based on review of prior labs and review of systems today I am not finding additional signs or symptoms suggestive for concomitant separate systemic rheumatic disease frequently associated with antiphospholipid antibody syndrome such as systemic lupus erythematosus or less likely Sjogren's syndrome or rheumatoid arthritis. Other insomnia 09/09/2021 Assessment & Plan (09/09/2021 10:37 PM EST): Principles of sleep hygiene reviewed and strongly encouraged. Continue listening to guided imagery tapes by Otto Kingston vs other relaxation tapes of choice. Carefully build up the dose of melatonin nightly from 5 mg increasing it by 1 mg every couple of weeks to the lowest necessary amount not to exceed the maximum of 10 mg nightly. Primary osteoarthritis involving multiple joints 09/09/2021 Assessment & Plan (12/25/2021 4:27 PM EDT): Joint protection, energy conservation. Gentle, regular exercise routine after warm pack or warm shower. Examples of exercises for neck, shoulders, hands and core muscle strengthening reviewed and encouraged. Avoid falls, injuries, overuse. She may benefit from topical cream such as Arnica, Biofreeze, Aspercreme versus medicated patches such as salonpas, icy hot patch 2-3 times daily and if necessary at bedtime x 3 weeks. If symptoms progress despite above measures may need to consider local steroid injection. Assessment & Plan (09/09/2021 10:29 PM EST): Joint protection, energy conservation. Gentle, regular exercise routine after warm pack or warm shower. Examples of exercises for urosepsis and core muscle strengthening reviewed and encouraged. Avoid falls, injuries, overuse. She may benefit from topical cream such as Arnica, Biofreeze, Aspercreme versus medicated patches such as salonpas, icy hot patch 2-3 times daily and if necessary at bedtime x 3 weeks. Anticoagulated 09/09/2021 Assessment & Plan (12/10/2021 10:38 AM EDT): Continue Coumadin as directed by anticoagulation clinic to keep INR at 1.5-2.0. Assessment & Plan (09/09/2021 10:38 PM EST): Continue Coumadin as directed by anticoagulation clinic to keep INR at 1.5-2.0. technician terminal and repeater current use of systemic steroids 09/09 Assessment & Plan (12/10/2021 10:38 AM EDT): Carefully continue alternating low dosing as prescribed by her check embosser and consider gentle taper when ready. Daily calcium and vitamin D supplementation. Regular weightbearing exercises. Fall prevention strategies. Monitor for multiple side effects including but not limited to increased risk of hips, knees, jaw osteonecrosis, mood swings, increased intraocular and systemic pressure, diabetes, osteoporosis, fluid retention, increased appetite, risk of infection, bruising, hair thinning etc. Assessment & Plan (09/09/2021 10:39 PM EST): Carefully continue alternating low dosing as prescribed by her check embosser and consider gentle taper when ready. Daily calcium and vitamin D supplementation. Regular weightbearing exercises. Fall prevention strategies. Monitor for multiple side effects including but not limited to increased risk of hips, knees, jaw osteonecrosis, mood swings, increased intraocular and systemic pressure, diabetes, osteoporosis, fluid retention, increased appetite, risk of infection, bruising, hair thinning etc. Vitamin D insufficiency 09/09/2021 Assessment & Plan (12/10/2021 10:38 AM EDT): Continue daily supplementation to optimize her serum level ~40-45 ng/ml Assessment & Plan (09/09/2021 10:20 PM EST): Continue daily supplementation to optimize her serum level ~40-45 ng/ml KANDY treated with BiPAP 09/09/2021 Assessment & Plan (12/02/2022 9:09 AM EDT): She has treatment for this Assessment & Plan (12/10/2021 10:38 AM EDT): Has been on BiPAP nightly since 2014. May need to be reassessed and possibly adjusted to improve her sleep quality. Assessment & Plan (09/09/2021 10:20 PM EST): Has been on BiPAP nightly since 2014. May need to be reassessed and possibly adjusted to improve her sleep quality. Hypertension 09/02/2020 Overview (08/14/2023): Last Assessment & Plan: 104/58 in office today, well-controlled. Continue metoprolol and torsemide. Osteoarthritis 08/23/2018 Bronchiectasis 08/08/2017 Restrictive lung disease 08/08/2017 Chronic obstructive pulmonary disease 04/13/2017 Pulmonary hypertension 04/04/2017 Anxiety 12/07/2016 Gastroesophageal reflux disease 11/17/2016 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 Cardiac microvascular disease 12/12/2015 Hyperlipidemia 09/18/2015 Glaucoma suspect 08/26/2014 Akathisia 04/15/2013 Deep vein thrombosis (DVT) 03/18/2013 Heterozygous factor V Leiden mutation 03/18/2013 Encounters Date Type Department Care Team Description 01/22/2025 8:40 AM EDT Office Visit [facility] [address] [place] [address] Anna Ellis MD Acquired hypothyroidism (Primary Dx); Hyperparathyroidism; Age-related osteoporosis without current pathological fracture; Adrenal insufficiency 01/12/2025 Refill [facility] [address] [place] [id number] Anna Ellis MD Medication Refill from Last 3 Months Immunizations Immunization Administration Dates Next Due Influenza, Unspecified Formulation 05/01/2009(De ferred: Patient Decision) Pneumococcal polysaccharide PPSV23 05/01/2009(De ferred: Patient Decision) Social History Tobacco Use Types Packs/Day Years Used Date Smoking Tobacco: Never Smokeless Tobacco: Never Tobacco Cessation:Counseling Given: Not Answered Education Answer Date Recorded Are you interested in more education? Not on patrice e 11/20/2022 Are you concerned about learning? Not on file 11/20/2022 No 11/20/2022 No 11/20/2022 Digital Access Answer Date Recorded No 11/29/2022 No 11/29/2022 No 11/29/2022 Reliable internet access at home? Not on file 11/29/2022 Device with a working camera? Not on file Comments Unknown Sex and Gender Information Value Date Recorded Sex Assigned at Not on file Legal Sex Female 6:02 PM EST Gender Identity Not on file Sexual Orientation Not on file Last Filed Vital Signs Vital Sign Reading Time Taken Comments Blood Pressure 100/60 01/22/2025 8:37 AM EDT Pulse 76 01/22/2025 8:37 AM EDT Temperature 36.7 C (98 F) 02/18/2014 1:18 PM EDT Respiratory Rate - - Oxygen Saturation 99% 01/22/2025 8:37 AM EDT 2l/min Inhaled Oxygen Concentration - - Weight 58.1 kg (128 lb) 01/22/2025 8:37 AM EDT Height 157.5 cm (5' 2 ) 01/22/2025 8:37 AM EDT Body Mass Index 23.41 01/22/2025 8:37 AM EDT Plan of Treatment Upcoming Encounters Date Type Department Care Team (Late st Contact Info) Description 09/03/2025 11:40 AM EST Office Visit [facility] [address] [place] [address] [place] [address] Anna Ellis MD [address] [place] [phone] [email or web address] Health Maintenance Due Date Last Done Comments POTASSIUM LEVEL 1943 DEPRESSION SCREENING 1955 ZOSTER VACCINES (1 of 2) 1993 OSTEOPOROSIS SCREENING INITIAL (ONE-TIME) 2008 LIPID PANEL 03/18/2017 03/18/2016 RSV VACCINE (1 - 1-dose 75+ series) 2018 COVID-19 VACCINE ( - season) 2024 09/03/2020, 08/06/2020 TSH LEVEL 04/23/2025 04/23/2024, 09/11/2023 BLOOD PRESSURE 07/25/2025 01/22/2025 Adult Td,Tdap Booster 02/27/2026 02/28/2016, 016 PNEUMOCOCCAL VACCINES (50+ years) Completed 08/31/2021, 03/25/2016, 04/21/2014, Additional history exists HEPATITIS A VACCINES Aged Out No long er eligible based on patient's age to complete this topic HIB VACCINES Aged Out No longer eligi ble based on patient's age to complete this topic MENINGOCOCCAL VACCINES (ACWY) Aged Out No longer eligible based on patient's age to complete this topic MENINGOCOCCAL VACCINES (B) Aged Out N o longer eligible based on patient's age to complete this topic Medical Devices Not on file Procedures Procedure Name Priority Date/Time Associated Diagnosis Comments TSH WITH REFLEX Routine 04/23/2024 3:40 PM EDT Acquired hypothyroidism from Last 3 Months or Most Recently Relevant to Health Maintenance Results * TSH with reflex (04/23/2024 3:40 PM EDT) Blood Anna Ellis MD LAB BLOOD ORDERABLES F inal Result [address] [id number] from Last 3 Months or Most Recently Relevant to Health Maintenance Insurance MEDICARE PART A & B [facility] MEDEX SUPPLEMENT [facility] SAFETY NET FULL Member Subscriber Plan / Payer (Ef fective 2019-Present) Name:Helena, Jovana J Relation to Subscriber:Self Name:Jovana Malik Hebert Payer ID:Not on file Group ID:Not on file Type:Medicaid Address: [address] MEDICARE PART A & B [facility] MEDEX SUPPLEMENT [facility] NET FULL [facility] MEDICARE PART A & B [facility] MEDEX SUPPLEMENT [facility] [place] [address] [place] [address] MEDICARE PART A & B [facility] MEDEX SUPPLEMENT [facility] NET FULL MEDICARE PART A & B [facility] MEDEX SUPPLEMENT HEALTH SAFETY NET FULL [facility] MEDICARE PART A & B [facility] MEDEX SUPPLEMENT HEALTH SAFETY NET FULL MEDICARE PART A & B [place] MEDEX SUPPLEMENT HEALTH SAFETY NET FULL [facility] MEDICARE PART A & B [facility] MEDEX SUPPLEMENT [place] SAFETY NET FULL MEDICARE PART A & B [facility] MEDEX SUPPLEMENT HEALTH SAFETY NET FULL Care Teams Red Leader Relationship Specialty Start Date End Date Caitlyn Bowie MD [address] [place] [address] PCP - General Internal Medicine 09/09/21 Additional Source Comments The information contained in this document represents components of the legal health record. It is not the complete legal health record.[facility]
--- OUTSIDE RECORDS SUMMARY | 2025-01-30 09:30 | XMS_ITS | Data Portability ---
Author Organization [place] [facility] Address [address] [place] [address] Care Team Providers Care Wreath Machine Tender Name Role Phone DEVENDRAEVELIN Primary Care Provider SHANTI YBARRA OTHER Assessment [...] 911 activated Plan/Discussion: EMS handoff given to [facility] In order to obtain further information and compare any laboratory results/values, I have accessed old patient records. This information was pertinent in my medical decision making today. [email or web address] Not available 03/14/2021 13:20:46 07/18/2021 07/18/2021 Overview/History [...] as of yet. 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 This [...] and all questions were answered prior to team departure. Proper Personal Protective Equipment (PPE), including gloves, eye protection and masks were donned and doffed appropriately and all equipment cleaned using approved technique with germicidal disposable wipes prior to and after care of this patient according [facility] prevention protocols. Time On Scene [...] noting blood on her pillow approximately 3 capitan grande band when she woke this morning. She has [...] after care of this patient according to [facility]'s infection prevention protocols. [email or web address] Not available 12/29/2021 14:43:37 Plan of Treatment Reminders Order Date Submit Date Provider Last Modified By Organization Details Last Modified Time Details Appointments None recorded. Lab None recorded. Referral None recorded. Procedures None recorded. Surgeries None recorded. Imaging None recorded. Medication Orders docusate sodium 100 mg capsule 2021 022 lnovia [id number], [address] [facility], [place], [address], 19:28:14 Patient TargetsNo targets recorded. Patient Instructions Encounter Date Encounter Id Patient Instructions Last Modified By Organization Details Last Modified Time 03/14/2021 [id number] Thank you for yo ur visit with [facility] today. You were seen today for [...] in your condition between 8am-10pm, please call [facility] at [phone] to help navigate your care. [email or web address] Not available 03/14/2021 12:46:32 10/18/2021 [id number] It was great to see you today! Thank you for letting [facility] assist you in your medical needs [...] follow up with your PCP please [email or web address]. Please present to the [...] INR 1.2 0.9-1. 2 Not Available [facility] [address] [facility], [place], [address], 02/11/2021 16:58:14 02/12/20 21 02/11/2021 , sylvia vance lower extre mity No observ ation record ed. [address] (Imaging) [address] [place], [address], 02/12/2021 08:19:41 Result Notes None recorded. Problems Name Problem SNOMED Code Status Onset Date Resolution Date Notes Provider Name and Address Organization Details Recorded Time Chronic obstructive pulmonary disease 45982668 Active 2018 ARCELIA PATELALON WINSTON [address], [place], [address], [place] [facility] 9 12:59:21 Problem Notes None recorded. Procedures Surgical History Date Name Laterality Status Provider Name and Address Organization Details Recorded Time Total Hysterectomy completed Cristine Sidhu, ALON [address], [place], [address], [place] [facility] 10/18/2021 19:39:45 lobectomy of lung completed Cristine frazier, [employer] [address], [place], [address], [place] [facility] 10/18/2021 19:40:05 Remove tonsils and adenoids completed Cristine Sidhu, ALON [address], [place], [address], [place] [facility] 10/18/2021 19:40:22 Imaging Results None recorded. Procedure Notes None recorded. Medical Equipment None Reported. Allergies Allergen ID Allergen Name Allergen Category Reaction Reaction Severity Criticality Documentation Date Start Date Code Code System Note Provider Name and Address Organization Details Recorded Time 53479 Product containin g penicilli n (product) medicatio n Not available Not available Not available 06/15/2019 40584 8001 SNOMED ARCELIA AMANDAALON WINSTON [address], [place], [address], [place] [facility] 9 12:56:48 12491 Substance with sulfonami de structure and antibacte rial mechanism of action (substanc e) medicatio n Not available Not available Not available 06/15/2019 84528 8003 SNOMED ARCELIA AMANDAALON WINSTON [address], [place], [address], [place] [facility] 9 12:56:54 08177 Voltaren medicatio n Not available Not available Not available 06/15/201966718 6 RxNorm ARCELIA FAJARDO , [employer] [address], [place], [address], [place] [facility] 9 12:57:01 82837 Iodinated contrast media (substanc e) medicatio n Not available Not available Not available 06/15/2019 67069 2004 SNOMED ARCELIA FAJARDO , [employer] [address], [place], [address], [place] [facility] 9 12:57:07 42398 vancomyci n medicatio n Not available Not available Not available 06/15/2019 84296 RxNorm ARCELIA FAJARDO , [employer] [address], [place], [address], [place] [facility] 9 12:57:14 71528 gentamici n medicatio n Not available Not available Not available 06/15/2019 47106 50 RxNorm ARCELIA FAJARDO , [employer] [address], [place], [address], [place] [facility] 9 12:57:20 99360 Biaxin medicatio n Not available Not available Not available 06/15/201973550 9 RxNorm ARCELIA FAJARDO , [employer] [address], [place], [address], [place] [facility] 9 12:57:27 70687 Avelox medicatio n Not available Not available Not available 06/15/2019 64703 6 RxNorm ARCELIA FAJARDO , [employer] [address], [place], [address], [place] [facility] 9 12:57:34 38562 erythromy jaylon medicatio n Not available Not available Not available 06/15/2019 4053 RxNorm ARECLIA FAJARDO , [employer] [address], [place], [address], [place] [facility] 9 12:57:41 95703 Zithromax medicatio n Not available Not available Not available 06/15/2019 64176 4 RxNorm ARCELIA FAJARDO , [employer] [address], [place], [address], [place] [facility] 9 12:57:51 54355 Levaquin medicatio n Not available Not available Not available 06/15/2019 12609 2 RxNorm ARCELIA FAJARDO , [employer] [address], [place], [address], [place] [facility] 9 12:58:02 83531 Cipro medicatio n Not available Not available Not available 06/15/2019 73768 3 RxNorm ARCELIA FAJARDO , [employer] [address], [place], [address], [place] [facility] 9 12:58:08 37751 morphine medicatio n Not available Not available Not available 06/15/2019 7052 RxNorm ARCELIA FAJARDO , [employer] [address], [place], [address], [place] [facility] 9 12:58:20 22792 procaine hydrochlo ride medicatio n Not available Not available Not available 06/15/2019 06433 8 RxNorm ARCELIA FAJARDO , [employer] [address], [place], [address], [place] [facility] 9 12:58:42 83715 barium sulfate medicatio n Not available Not available Not available 06/15/2019 1331 RxNorm ARCELIA FAJARDO , [employer] [address], [place], [address], [place] [facility] 9 12:58:54 84705 Gastrogra fin medicatio n Not available Not available Not available 06/15/2019 32006 5 RxNorm ARCELIA FAJARDO , [employer] [address], [place], [address], [place] [facility] 9 12:59:01 05368 Flagyl medicatio n Not available Not available Not available 06/15/2019 09930 6 RxNorm ARCELIA FAJARDO , [employer] [address], [place], [place], [address], [place] [facility] 9 12:59:06 80106 shrimp allergeni c extract food Not available Not available Not available 06/15/2019 47036 2 RxNorm ARCELIA FAJARDO , [employer] [address], [place], [place], [address], [place] [facility] [...] completed Not Available Not Available Not Available Nyamy 100,000 unit/gram topical powder APPLY ONE APPLICAT [...] Available No t Available Vitals Date Recorded Respiratory rate Oxygen saturation Oxygen saturation in Arterial blood by Pulse oximetry Heart rate Body temperature Systolic And Diastolic Provider Name and Address Organization Details Last Updated DateTime 2 18 /min 98 % 98 % 84 /min 98.9 [degF] 112/58 mm[Hg] Not Available [facility] 2 11:16:01 Date Recorded Heart rate Oxygen saturation Oxygen saturation in Arterial blood by Pulse oximetry Respiratory rate Body temperature Systolic And Diastolic Systolic And Diastolic Provider Name and Address Organization Details Last Updated DateTime 2 80 /min 96 % 96 % 18 /min 98.9 [degF] 142/66 mm[Hg] 128/60 mm[Hg] Not Available [facility] 2 20:16:17 Date Recorded Oxygen saturation Oxygen saturation in Arterial blood by Pulse oximetry Heart rate Respiratory rate Body temperature Systolic And Diastolic Provider Name and Address Organization Details Last Updated DateTime 2 96 % 96 % 77 /min 18 /min 98.6 [degF] 122/60 mm[Hg] Not Available [facility] 2 13:41:00 Date Recorded Heart rate Respiratory rate Oxygen saturation Oxygen saturation in Arterial blood by Pulse oximetry Body temperature Systolic And Diastolic Provider Name and Address Organization Details Last Updated DateTime 1 76 /min 16 /min 97 % 97 % 99 [degF] 114/62 mm[Hg] Not Available [facility] 1 12:53:01 Social History Question Answer Notes LastModified by Organizat ion Details LastModified Time Tobacco Smoking Status Never Smoker ARCELIA FAJARDO, ALON [address] [place], [address], [place] [facility] 06/15/2019 13:05:25 Do You Have An Advance Directive? Yes Information not available 06/15/2019 What Is Your Code Status? Full Code [...] You Got Money To Buy More. Yes [email or web address] Information not available 06/15/2019 Fall Risk: Do [...] Tobacco Screening? 06/15/2019 Information not available 06/16/2019 Sex: Unknown Functional Status Question Answer Note LastModified by Organizat ion Details LastModified Time Do you use any illicit or recreational drugs? No Information not available 10/18/2021 Do you or have you ever used any other forms of tobacco or nicotine? No Information not available 10/18/2021 What is your level of alcohol consumption? Occasional Information not available 10/18/2021 Mental Status None recorded. Family History Relationship [...] SNOMED-CT Code Diagnosis ICD10 Code Diagnosis Note [id number] ARCELIA ALON FAJARDO [facility] [address] [place] [address] 06/15/2019 12:54:37 06/17/2019 13:06:33 Excoriation of skin 554685007 T14.8XXA [id number] JANIS GILBERT NP [facility] [address] [place] [address] 11/13/2019 16:03:00 11/18/2019 14:53:37 Pain in lower limb 48828752 M79.661 [id number] ARCELIA FAJARDO NP [facility] [address] [place] [address] 03/14/2020 20:02:43 03/18/2020 21:30:46 Traumatic hematoma 740989602 T14.8XXA Long-term current use of anticoagulant 936022083 Z79.01 Pain in left foot 066058 3292 75509 M79.672 [id number] EMELIA TOMPKINS [facility] [address] [place] [address] 03/20/2020 12:50:59 03/23/2020 17:54:28 Contusion of lower leg 75384703 S80.10XA Swelling of lower leg 44 0213850 R22.42 [id number] JAMES GARCIA NP [facility] [address] [place] [address] 09/29/2020 11:41:21 09/29/2020 12:38:57 Pain of intercostal space 044676198 R07.82 Exposure t o communicable disease 592260922 Z20.822 [id number] Waleska Matos NP [facility] [address] [place] [address] 02/11/2021 16:34:32 02/12/2021 11:08:44 Hematoma of lower leg 594360153 S80.11XA [id number] JAMES GARCIA NP [facility] [address] [place] [address] 03/14/2021 12:45:30 03/19/2021 14:09:43 Abdominal pain 04586671 R10.9 [id number] EMELIA Alfonso [facility] [address] [place] [address] 07/18/2021 10:56:56 07/22/2021 23:43:22 Constipation 87116476 K59.00 Left lower quadrant pain 804093129 R10.32 [id number] Cristine Sidhu [employer] [facility] [address] [place] [address] 10/18/2021 19:17:00 11/10/2021 16:33:03 Left sided abdominal pain 786007826 R10.9 Hematoma of lower leg 44 6157281 S80.10XA Long-term current use of anticoagulant 824339176 Z79.01 [id number] Cristine Sidhu NP [facility] [address] [place] [address] 12/29/2021 13:36:24 12/30/2021 10:20:27 Blood coagulation disorder 49577348 D68.61 D68.2 [id number] Olivia Goldberg NP [facility] [address] [place] [address] 01/18/2023 14:00:39 01/18/2023 15:01:49 Health Concerns Section Related Observation LastModified by Organization Detai ls LastModified Time None Recorded Concern Status LastModified by Organization Details LastModified Time None Recorded Advance Directives Directive Y: Payers Insurance Date Sequence Insurance Name Policy Number Policy Pettit Covered Member ID Pettit Member ID Guarantor Name 01/18/2023 2 [place] [id number] Jovana Malik [id number] Jovana Steinino 10/18/2021 1 *SELF PAY* Jovana Malik [id number] Jovana Malik 10/18/2021 2 [place] Jovana Malik [id number] Jovana Helena 01/17/2023 2 [place] [id number] Jovana Malik [id number] Jovana Steinino 10/18/2021 1 MED[place] B[place]: [facility] Jovana Malik [id number] Jovana Malik 01/18/2023 1 MEDICARE B-[place]: [facility] Jovana Malik [id number] Jovana Malik Notes Date Note Type Note Provider Name and Address Organization Details Recorded Time 1 text/html General HPI Template - DHReported by Patient This is a 75-year-old female, known to [employer], who calls with concerns for severe abdominal [...] fair fluid intake. JAMES GARCIA NP [address] [place], [address], [place] [facility] 03/14/2021 13:21:32 2 text/html 76 YO F [...] stool. Denies hematochezia. No other asscociated sx's. Christopher Rumplik, PA [address], [place], [address], [place] [facility] 07/18/2021 12:04:00 2 text/html [...] she wanted evaluated. Cristine Sidhu NP [address], [place], [address], [place] [facility] 11/09/2021 02:11:05 2 text/html [...] them being supernatural. Cristine Sidhu NP [address], [place], [address], [place] [facility] 12/29/2021 14:43:53 3 text/html pt did not answer, visit canceled Olivia Goldberg NP [address], [place], [address], [place] [facility] 01/18/2023 19:34:36 OBGyn Episode No OBEpisode recorded.
--- OUTSIDE RECORDS SUMMARY | 2025-01-30 09:30 | XMS_ITS | Patient Health Record ---
Author Organization [facility] Address [address] [place] [address] Care Team Providers Care Data Support Analyst Name Role Phone Shruti Bowieberly Primary Care Provider Cristian Fountain Unavailable [phone] Allergies Allergen (clinical drug ingredient) Drug/Non Drug Allergy documented on EMR Reaction Allergy Type Onset Date Status shrimp allergenic extract Shrimp (Diagnostic) Unknown Drug [...] sulfate Barium Sulfate Unknown Drug Allergy Active Reason For Referral No Information [...] Status W/U Status Risk Notes Problem Diverticulitis (070171918) Diverticulitis (K57.92) Active confirmed Problem Irritable bowel syndrome characterized by constipation (931893259) Irritable bowel syndrome with constipation (K58.9) Active confirmed Problem Gastroesophageal reflux disease (410994080) GERD (gastroesophageal reflux disease) (K21.9) Active confirmed Plan Of Treatment No Information Insurance Providers Payer Name Payer Address Payer Phone Subscriber Number Group Number Insured Name Patient Relationship to Insured Coverage Start Date Coverage End Date MEDICARE OF [place] [address] [place] [address] [id number] CINDA WATSON Self - patient is the insured MEDEX ATTN CLAIMS [address] [place] [address] [id number] CINDA WATSON Self - patient is the insured Medical (General) History Medical History History ICD Code AK-04/2021-sees Dr. 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 Hogan at [facility]-has had EGD's with Dr. Gomes Pneumomias Hypothyroidism Surgical History Surgery Date(Month/Year) Tonsils and adenoids BOLA Lung cancer-Left lower lobectomy at [facility], XRT, Chemo 2008
--- OUTSIDE RECORDS SUMMARY | 2025-01-30 09:30 | XMS_ITS | Clinical Summary ---
Author Organization [facility] Address [address] [place] [address] Care Team Providers Care Belly Packer Name Role Phone Caitlyn [place] Primary Care Provider [phone] Allergies Active Allergy Reactions Criticality Noted Date [...] Throat tightness Throat tightness Throat tightness Ipratropium [place] Unknown Medium 12/18/2021 Isosorbide Mononitrate 11/23/2020 Other [...] season) 2024 09/03/2020, 08/06/2020 Influenza Vaccine (#1) 2025 , 05/13/2022, 05/15/2021, Additional history exists DTaP,Tdap,and [...] topic Insurance MEDICARE PART A & B [facility] Care Teams Belly Packer Relationship Specialty Start Date End Date Caitlyn Bowie [address] [place] [address] PCP - General Internal Medicine 07/18/22
[2025-01-30 10:16] LABS: Anion Gap 10 (12-20); Blood Urea Nitrogen 28 mg/dL (9-16); Calcium 10.4 mg/dL (8.4-10.2); Carbon Dioxide 35 mmol/L (22-29); Chloride 99 mmol/L (96-108); Estimated Glomerular Filt Rate > 60; Potassium 3.4 mmol/L (3.3-5.1); Sodium 141 mmol/L (135-145)
== END 2025-01-30 09:01 | disposition home or self-care (01) ==
LOC: HO.LAB 09:00
PROVIDERS: PCP Internal Medicine; Visit Provider Internal Medicine Cardiovascular Disease
DX: E87.6 Hypokalemia (principal); J96.12 Chronic respiratory failure with hypercapnia; R00.0 Tachycardia, unspecified; J41.0 Simple chronic bronchitis; R30.0 Dysuria; R07.81 Pleurodynia
CPT/HCPCS: 36415; 80048

== ENCOUNTER 2025-02-01 06:49 | Emergency (ER) | payer MEDICARE, SELFPAY ==
--- NOTE | ~2025-02-01 | XR_ITS ---
CLINICAL HISTORY: pain contusion lateral malleolus 3 view right ankle Comparison: 01/02/2025 Findings: No acute fractures. Ankle mortise intact. No significant loss of joint space, osteophytes, or erosions. No ankle effusion. No radiopaque foreign body. There is regional arterial calcification. IMPRESSION: 1. No acute findings. This document has been electronically signed by: Kevin Wang MD on 02/01/2025 08:40:37
--- NOTE | ~2025-02-01 | US_ITS ---
CLINICAL HISTORY: pain, swelling hematoma, hx of DVT Venous duplex ultrasound right lower extremity Comparison: None provided Findings: The visualized deep veins are fully compressible with normal Doppler color flow and spectral tracings. No popliteal cyst. IMPRESSION: 1. Negative for right lower extremity deep vein thrombosis. This document has been electronically signed by: Jayce Woo MD on 02/01/2025 10:13:12
[2025-02-01 07:07] VITALS: BP 133/65; BP 136/60; PULSE 73; PULSE 74; RESP 16; TEMP 36.9; O2SAT 97; BMI 24.9
--- OUTSIDE RECORDS SUMMARY | 2025-02-01 07:38 | XMS_ITS | Patient Health Record ---
Author Organization [facility] Address [address] [place] [address] Care Team Providers Care Lode Miner Name Role Phone Shruti Bowieberly Primary Care Provider Cristian Fountain Unavailable [phone] Allergies Allergen (clinical drug ingredient) Drug/Non Drug [...] Status W/U Status Risk Notes Problem Diverticulitis (795148765) Diverticulitis (K57.92) Active confirmed Problem Irritable bowel syndrome characterized by constipation (927157567) Irritable bowel syndrome with constipation (K58.9) Active confirmed Problem Gastroesophageal reflux disease (126528603) GERD (gastroesophageal reflux disease) (K21.9) Active confirmed Plan Of Treatment No Information Insurance Providers Payer Name Payer Address Payer Phone Subscriber Number Group Number Insured Name Patient Relationship to Insured Coverage Start Date Coverage End Date MEDICARE OF [place] [address] [place] [address] [id number] CINDA WATSON Self - patient is the insured MEDEX ATTN CLAIMS [address] [place] [address] [phone] [id number] CINDA WATSON Self - patient is the insured Medical (General) History Medical History History ICD Code ME-04/2021-sees Dr. Cadet--describes a negative cardiac cath Lung [...] a nd Antiphospholipid antibody--has had DVT's and PE's---Sample Paster at [place] and Dr. Hogan at [facility]-has had EGD's with Dr. Gomes Pneumomias Hypothyroidism Surgical History Surgery Date(Month/Year) Tonsils and adenoids BOLA Lung cancer-Left lower lobectomy at [facility], XRT, Chemo 2008
--- OUTSIDE RECORDS SUMMARY | 2025-02-01 07:38 | XMS_ITS | Encounter Summary ---
Author Organization [facility] Address [address] [place] [address] Phone Care Team Providers Care Product Accountant Name Role Phone Caitlyn Bowie MD Primary Care Provider [phone] Encounter Details Date Type Department Care Team (Late Contact Info) Description 12/10/2024 Documentation Only [facility] [address] [place] [address] Marina Abdi [address] [place] [address] Social History Tobacco Use Types [...] Visit [facility] [address] [place] [address] Rubén Ashraf MD [address] [place] [address] [place] [address] documented as of this encounter Visit Diagnoses Not on filedocumented in this encounter Care Teams Product Accountant Relationship Specialty Start Date End Date Caitlyn Bowie MD [address] [place], [place] PCP - General Internal Medicine 09/24/24 documented as of this encounter
--- OUTSIDE RECORDS SUMMARY | 2025-02-01 07:38 | XMS_ITS | Clinical Summary ---
Author Organization [facility] Address [address] [place] [address] Care Team Providers Care Java Tech Name Role Phone Caitlyn Bowie MD Primary Care Provider [phone] Allergies Active Allergy Reactions Criticality Noted Date [...] Breath High 05/09/2008 Bronchospasm or Wheezing Ipratropium [place] Unknown/Patient and Family Unable to Define Medium [...] 1 capsule by mouth daily. Active B Mplohlv-Q-Cqzkc Acid (STRESS 500 B-COMPLEX PO) Take 1 [...] Type Department Care Team Description 11/22/2024 Telephone [facility] Neurology Sports [address] [address] Yary Whitten DO from Last 3 Months [...] & B MEDICARE PART A & B [facility] Care Teams Java Tech Relationship Specialty Start Date End Date Caitlyn Bowie MD [address] [place] [address] PCP - General Internal Medicine 03/20/23
--- OUTSIDE RECORDS SUMMARY | 2025-02-01 07:38 | XMS_ITS | Clinical Summary ---
Author Organization [facility] Address [address] [place] [address] Care Team Providers Care Auto Damage Trainee Name Role Phone Caitlyn Bowie Primary Care Provider [phone] Allergies Active Allergy Reactions Criticality Noted Date [...] Throat tightness Throat tightness Throat tightness Ipratropium [place] Unknown Medium 12/18/2021 Isosorbide Mononitrate 11/23/2020 Other [...] topic Insurance MEDICARE PART A & B [facility] Care Teams Auto Damage Trainee Relationship Specialty Start Date End Date Caitlyn Bowie [address] [place] [address] PCP - General Internal Medicine 07/18/22
--- OUTSIDE RECORDS SUMMARY | 2025-02-01 07:38 | XMS_ITS | Clinical Summary ---
Author Organization [facility] Address [address] [place] [address] Phone Care Team Providers Care Medical Device Sales Consultant Name Role Phone Caitlyn Bowie MD Primary Care Provider [phone] Allergies Active Allergy Reactions Criticality Noted Date [...] 20 mg as needed by her previous mill feeder which she has taken sporadically. I have asked her to take this daily to see if this improves her symptoms and she has a follow-up appointment with Dr. Shah on September 16 which she will keep. We also had a long conversation regarding the fact that she is seeing 3 different mill feeder for the same problems. We informed her [...] continues to see Dr. Avalos or her mill feeder at [facility]. She verbalized understanding [...] right lower leg 03/06/2019 Antiphospholipid antibody syndrome ([facility] V24) 12/24/2018 Adrenal insufficiency ([facility] V24) 08/23/2018 Allergic rhinitis 08/23/2018 Hyperparathyroidism ([facility] V24) 08/23/2018 MRSA infection 08/23/2018 Overview (05/16/2024): 06/2009, s/p thoracotomy infection Osteoarthritis 08/23/2018 Radiation-induced pulmonary fibrosis ([facility] V2 4) 11/13/2017 Bronchiectasis ([facility] V24, [facility] V28) 2017 Leg edema 08/08/2017 Restrictive lung disease 08/08/2017 Chronic obstructive pulmonar y disease ([facility] V24, [facility] V28) 04/13/2017 Fibromyalgia 04/13/2017 Congestive heart failure ([facility] V24, [facility] V 28) 04/04/2017 Heterozygous factor V Leiden mutation ([facility] V 24) 04/04/2017 Obstructive sleep apnea syndrome 04/04/2017 Overview (05/16/2024): CPAP Pleural effusion 04/04/2017 Pulmonary hypertension ([facility] V24, [facility] V28 ) 04/04/2017 Multiple pulmonary nodules 03/17/2017 [...] EDT - 01/19/2025 9:08 PM EDT Emergency [facility] Emergency [address] [place] [phone] Discharge Disposition: Home or Self Care 12/23/2024 9:00 AM EDT Office Visit V[facility] - [place] [address] [place] [phone] Jerry Li MD Complex regional pain syndrome type 1 of both lower extremities (Primary Dx); Leg swelling 12/10/2024 2:43 PM EDT - 12/10/2024 4:57 PM EDT Emergency [facility] Emergency [address] [place] [address] Head injury, initial encounter (Primary Dx) Discharge Disposition: Home or Self Care 12/10/2024 1:30 PM EDT Office Visit [facility] [address] [facility] [address] [place] [address] Shirley Chaidez PA 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) 11/04/2024 Telephone Gastroenterology - [address] 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 DX:Zinc deficien cy Obstructive sleep apnea syndrome 04/04/2017 DX:Obstructive sleep apnea syndrome; COMMENT: CPAP Radiation-induced pulmonary fibrosis ([facility] V24) 11/13/2017 DX:Radiation-induced pulmona ry fibrosis (HCC) Adrenal insufficiency ([facility] V24) 08/23/2018 DX:Adrenal insufficiency (HCC) Hyperparathyroidism ([facility] V24) 08/23/2018 DX:Hyperparathyroidism (HCC) Osteoporosis 11/17/2016 DX:Osteoporosis History of rheumatic fever 12/12/2015 DX:Hi story of rheumatic fever; COMMENT: With [facility] Allergic rhinitis 08/23/2018 DX:Allergic rh initis Osteoarthritis 08/23/2018 DX:Osteoarthriti s History of seizures 08/23/2018 DX:History o f seizures; COMMENT: Temporal lobe seizures MRSA infection 08/23/2018 DX:MRSA infectio n; COMMENT: 06/2009, s/p thoracotomy infection History of lung cancer 04/04/2017 DX:Histor y of lung cancer; COMMENT: T2 N2 Mx LLL resection, Chemo, RT, Cisplatin, Vinorelbine [phone] Antiphospholipid antibody sy ndrome ([facility] V24) 12/24/2018 DX:Antiphospholipid antibody syndrome (HCC) 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 Hyperparathyroidism ([facility] V24) DX:Hyperparathyroidism (HCC) Adrenal insufficiency ([facility] V24) DX:Adrenal insufficiency (HCC) Family History [...] Description 02/21/2025 4:30 PM EDT Office Visit [facility] [address] [place] [phone] Shirley Chaidez PA [address] [place] [address] Health Maintenance Due Date Last Done Comments [...] Signed Date: 12/10/2024 16:12 ET Workstation ID: [id number] Transcribed By: Self Edit Transcribed Date: 12/10/2024 [...] Signed Date: 12/10/2024 16:12 ET Workstation ID: [id number] Transcribed By: Self Edit Transcribed Date: 12/10/2024 16:10 ET Kelly KAPO[facility] IM CT PROCEDURES Final Resul t * (ABNORMAL) Comprehensive metabolic panel (06/15/2024 1:26 PM EST) Sodium 140 133 - 145 mmol/L LAB CHEMISTRY METHOD 06/15/2024 2:10 PM [facility] Potassium 4.7 3.5 - 5.5 mmol/L LAB CHEMISTRY METHOD 06/15/2024 2:10 PM [facility] Chloride 102 96 - 110 mmol/L LAB CHEMISTRY METHOD 06/15/2024 2:10 PM [facility] CO2 34(H) 21 - 32 mmol/L LAB CHEMISTRY METHOD 06/15/2024 2:10 PM [facility] Anion Gap 4 3 - 11 LAB CHEMISTRY METHOD 06/15/2024 2:10 PM [facility] Glucose 95 70 - 100 mg/dL LAB CHEMISTRY METHOD 06/15/2024 2:10 PM [facility] BUN 29(H) 5 - 25 mg/dL LAB CHEMISTRY METHOD 06/15/2024 2:10 PM [facility] Creatinine 0.95 0.50 - 1.10 mg/dL LAB CHEMISTRY METHOD 06/15/2024 2:10 PM [facility] eGFR 60 >=60 mL/min/1. 73m2 LAB CHEMISTRY METHOD 06/15/2024 2:10 PM [facility] Comment:Calculation based on the Chronic Kidney Disease Epidemiology Collaboration (CKD-EPI) equation refit without adjustment for race. BUN/Creatinine Ratio 30.5 LAB CHEMISTRY METHOD 06/15/2024 2:10 PM [facility] Calcium 10.1 8.5 - 10.5 mg/dL LAB CHEMISTRY METHOD 06/15/2024 2:10 PM [facility] AST (SGOT) 35 10 - 42 unit/L LAB CHEMISTRY METHOD 06/15/2024 2:10 PM [facility] ALT (SGPT) 39 10 - 60 unit/L LAB CHEMISTRY METHOD 06/15/2024 2:10 PM [facility] Alkaline Phosphatase 83 42 - 121 unit/L LAB CHEMISTRY METHOD 06/15/2024 2:10 PM [facility] Total Protein 6.4 6.0 - 8.0 g/dL LAB CHEMISTRY METHOD 06/15/2024 2:10 PM [facility] Albumin 3.3 3.2 - 5.0 g/dL LAB CHEMISTRY METHOD 06/15/2024 2:10 PM [facility] Total Bilirubin 0.4 0.0 - 1.4 mg/dL LAB CHEMISTRY METHOD 06/15/2024 2:10 PM [facility] Blood Venous blood specimen / Unknown Venipuncture / Unknown 06/15/2024 1:26 PM EST 06/15/2024 1:32 PM EST us Cinda Cruz MD LAB BLOOD ORDERABLES Final Resul t [facility] [address] [place] [address], [place] [phone] from Last 3 Months or Most Recently Relevant to Health Maintenance Insurance MEDICARE BLUE CROSS - [place] MEDICARE ADVANTAGE Advance Directives Documents on File Type Date Recorded Patient Algology Teacher Expl anation Health Care Decision (hx) 10/18/2013 [...] (hx) 10/04/2013 AD LACEY DIRECTIVE Care Teams Medical Device Sales Consultant Relationship Specialty Start Date End Date Caitlyn Bowie MD [address] [place] [address] PCP - General Internal Medicine 12/10/24
--- OUTSIDE RECORDS SUMMARY | 2025-02-01 07:38 | XMS_ITS | Encounter Summary ---
Author Organization [facility] Address [address] [place] [address] Care Team Providers Care Service Station Helper Name Role Phone Caitlyn Bowie MD Primary Care Provider [phone] Encounter Details Date Type Department Care Team (Late st Contact Info) Description 07/08/2020 Scanned Document [facility] Health Information Management [address] [place] [address] External, Provider Social History Tobacco Use Types [...] [facility] [address] [facility] [address] [place], [place] [id number] Ronald Mills MD [address] [place] [address] [address] [place] [address] documented as of this encounter [...] as of this encounter Care Teams Service Station Helper Relationship Specialty Start Date End Date Caitlyn Bowie MD [address] [address] PCP - General Internal Medicine 05/06/21 documented as of this encounter
--- OUTSIDE RECORDS SUMMARY | 2025-02-01 07:38 | XMS_ITS | Clinical Summary ---
Author Organization [facility] Address [address] [place] [address] Care Team Providers Care Sales Contracts Analyst Name Role Phone Brennan Burnett MD Primary Care Provider [phone] Allergies Active Allergy Reactions Criticality Noted Date [...] age to complete this topic Care Teams Sales Contracts Analyst Relationship Specialty Start Date End Date Brennan Burnett MD [address] [place] [address] PCP - General Internal Medicine 07/06/20
--- OUTSIDE RECORDS SUMMARY | 2025-02-01 07:38 | XMS_ITS | Data Portability ---
Author Organization [place] [facility] Address [address] [place] [address] Care Team Providers Care Engineer Byproduct Name Role Phone DEVENDRA EVELIN Primary Care Provider SHANTI YBARRA OTHER Assessment [...] 911 activated Plan/Discussion: EMS handoff given to [facility] In order to obtain further information and compare any laboratory results/values, I have accessed old patient records. This information was pertinent in my medical decision making today. [email or web address] Not available 03/14/2021 13:20:46 07/18/2021 07/18/2021 Overview/History [...] as of yet. -She is educated to hand picker stool softeners to help promote BM [...] I have accessed patient records on the [facility] [facility] and old patient records. This [...] after care of this [facility]. Time On [...] blood on her pillow approximately 3 [address] [place] when she woke this morning. She has [...] care of this patient according to [facility]'s infection prevention protocols. [email or web address] Not available 12/29/2021 14:43:37 Plan of Treatment Reminders Order Date Submit Date Provider Last Modified By Organization Details Last Modified Time Details Appointments None recorded. Lab None recorded. Referral None recorded. Procedures None recorded. Surgeries None recorded. Imaging None recorded. Medication Orders docusate sodium 100 mg capsule 2021 022 lnovia [id number], [address] [facility], [place], [address], 19:28:14 Patient TargetsNo targets recorded. Patient Instructions Encounter Date Encounter Id Patient Instructions Last Modified By Organization Details Last Modified Time 03/14/2021 [id number] Thank you for yo ur visit with [facility] today. You were seen today [...] in your condition between 8am-10pm, please call [facility] at [phone] to help navigate your care. [email or web address] Not available 03/14/2021 12:46:32 10/18/2021 [id number] It was great to see you today! Thank you for letting [facility] assist you in your medical needs [...] follow up with your PCP please contact [facility] for re-evaluation. Please present to the [...] 1.2 0.9-1. 2 Not Available [facility] [address] [facility], [place], [address], 02/11/2021 16:58:14 02/12/20 21 02/11/2021 , sylvia vance lower extre mity No observ ation record ed. [address] (Imaging) [address] [place], [address], 02/12/2021 08:19:41 Result Notes None recorded. Problems Name Problem SNOMED Code Status Onset Date Resolution Date Notes Provider Name and Address Organization Details Recorded Time Chronic obstructive pulmonary disease 43720910 Active 2018 ARCELIA PATELALON WINSTON [address], [place], [address], [place] [facility] 9 12:59:21 Problem Notes None recorded. Procedures Surgical History Date Name Laterality Status Provider Name and Address Organization Details Recorded Time Total Hysterectomy completed Cristine Sidhu, ALON [address], [place], [address], [place] [facility] 10/18/2021 19:39:45 lobectomy of lung completed Cristine frazier, JOURNEYMAN MOLDER [address], [place], [address], [place] [facility] 10/18/2021 19:40:05 Remove tonsils and adenoids completed Cristine Sidhu, ALON [address], [place], [address], [place] [facility] 10/18/2021 19:40:22 Imaging Results None recorded. Procedure Notes None recorded. Medical Equipment None Reported. Allergies Allergen ID Allergen Name Allergen Category Reaction Reaction Severity Criticality Documentation Date Start Date Code Code System Note Provider Name and Address Organization Details Recorded Time 78401 Product containin g penicilli n (product) medicatio n Not available Not available Not available 06/15/2019 92830 8001 SNOMED ARCELIA AMANDAALON WINSTON [address], [place], [address], [place] [facility] 9 12:56:48 54107 Substance with sulfonami de structure and antibacte rial mechanism of action (substanc e) medicatio n Not available Not available Not available 06/15/2019 17167 8003 SNOMED ARCELIA AMANDAALON WINSTON [address], [place], [address], [place] [facility] 9 12:56:54 85278 Voltaren medicatio n Not available Not available Not available 06/15/201930745 6 RxNorm ARCELIA FAJARDO , JOURNEYMAN MOLDER [address], [place], [address], [place] [facility] 9 12:57:01 27478 Iodinated contrast media (substanc e) medicatio n Not available Not available Not available 06/15/2019 25945 2004 SNOMED ARCELIA FAJARDO , JOURNEYMAN MOLDER [address], [place], [address], [place] [facility] 9 12:57:07 14797 vancomyci n medicatio n Not available Not available Not available 06/15/2019 91993 RxNorm ARCELIA FAJARDO , JOURNEYMAN MOLDER [address], [place], [address], [place] [facility] 9 12:57:14 33532 gentamici n medicatio n Not available Not available Not available 06/15/2019 23803 50 RxNorm ARCELIA FAJARDO , JOURNEYMAN MOLDER [address], [place], [address], [place] [facility] 9 12:57:20 85191 Biaxin medicatio n Not available Not available Not available 06/15/201921576 9 RxNorm ARCELIA FAJARDO , JOURNEYMAN MOLDER [address], [place], [address], [place] [facility] 9 12:57:27 79281 Avelox medicatio n Not available Not available Not available 06/15/2019 73374 6 RxNorm ARCELIA FAJARDO , JOURNEYMAN MOLDER [address], [place], [address], [place] [facility] 9 12:57:34 44173 erythromy jaylon medicatio n Not available Not available Not available 06/15/2019 4053 RxNorm ARCELIA FAJARDO , JOURNEYMAN MOLDER [address], [place], [address], [place] [facility] 9 12:57:41 85361 Zithromax medicatio n Not available Not available Not available 06/15/2019 45782 4 RxNorm ARCELIA FAJARDO , JOURNEYMAN MOLDER [address], [place], [address], [place] [facility] 9 12:57:51 42486 Levaquin medicatio n Not available Not available Not available 06/15/2019 15542 2 RxNorm ARCELIA FAJARDO , JOURNEYMAN MOLDER [address], [place], [address], [place] [facility] 9 12:58:02 31209 Cipro medicatio n Not available Not available Not available 06/15/2019 76587 3 RxNorm ARCELIA FAJARDO , JOURNEYMAN MOLDER [address], [place], [address], [place] [facility] 9 12:58:08 07792 morphine medicatio n Not available Not available Not available 06/15/2019 7052 RxNorm ARCELIA FAJARDO , JOURNEYMAN MOLDER [address], [place], [address], [place] [facility] 9 12:58:20 48319 procaine hydrochlo ride medicatio n Not available Not available Not available 06/15/2019 40142 8 RxNorm ARCELIA FAJARDO , JOURNEYMAN MOLDER [address], [place], [address], [place] [facility] 9 12:58:42 90362 barium sulfate medicatio n Not available Not available Not available 06/15/2019 1331 RxNorm ARCELIA FAJARDO , JOURNEYMAN MOLDER [address], [place], [address], [place] [facility] 9 12:58:54 97551 Gastrogra fin medicatio n Not available Not available Not available 06/15/2019 07094 5 RxNorm ARCELIA FAJARDO , JOURNEYMAN MOLDER [address], [place], [address], [place] [facility] 9 12:59:01 67053 Flagyl medicatio n Not available Not available Not available 06/15/2019 85964 6 RxNorm ARCELIA FAJARDO , JOURNEYMAN MOLDER [address], [place], [place], [address], [place] [facility] 9 12:59:06 77577 shrimp allergeni c extract food Not available Not available Not available 06/15/2019 95183 2 RxNorm ARCELIA FAJARDO , JOURNEYMAN MOLDER [address], [place], [place], [address], [place] [facility] [...] /min 98.9 [degF] 112/58 mm[Hg] Not Available [facility] 2 11:16:01 Date Recorded Heart rate Oxygen saturation Oxygen saturation in Arterial blood by Pulse oximetry Respiratory rate Body temperature Systolic And Diastolic Systolic And Diastolic Provider Name and Address Organization Details Last Updated DateTime 2 80 /min 96 % 96 % 18 /min 98.9 [degF] 142/66 mm[Hg] 128/60 mm[Hg] Not Available [facility] 2 20:16:17 Date Recorded Oxygen saturation Oxygen saturation in Arterial blood by Pulse oximetry Heart rate Respiratory rate Body temperature Systolic And Diastolic Provider Name and Address Organization Details Last Updated DateTime 2 96 % 96 % 77 /min 18 /min 98.6 [degF] 122/60 mm[Hg] Not Available [facility] 2 13:41:00 Date Recorded Heart rate Respiratory rate Oxygen saturation Oxygen saturation in Arterial blood by Pulse oximetry Body temperature Systolic And Diastolic Provider Name and Address Organization Details Last Updated DateTime 1 76 /min 16 /min 97 % 97 % 99 [degF] 114/62 mm[Hg] Not Available [facility] 1 12:53:01 Social History Question Answer Notes LastModified by Organizat ion Details LastModified Time Tobacco Smoking Status Never Smoker ARCELIA FAJARDO, ALON [address] [place], [address], [place] [facility] 06/15/2019 13:05:25 Do You [...] SNOMED-CT Code Diagnosis ICD10 Code Diagnosis Note [id number] ARCELIA ALON FAJARDO [facility] [address] [place] [address] 06/15/2019 12:54:37 06/17/2019 13:06:33 Excoriation of skin 809882044 T14.8XXA [id number] JANIS GILBERT NP [facility] [address] [place] [address] 11/13/2019 16:03:00 11/18/2019 14:53:37 Pain in lower limb 05196254 M79.661 [id number] ARCELIA FAJARDO NP [facility] [address] [place] [address] 03/14/2020 20:02:43 03/18/2020 21:30:46 Traumatic hematoma 467463050 T14.8XXA Long-term current use of anticoagulant 337661132 Z79.01 Pain in left foot 833887 4089 93121 M79.672 [id number] EMELIA TOMPKINS [facility] [address] [place] [address] 03/20/2020 12:50:59 03/23/2020 17:54:28 Contusion of lower leg 34169863 S80.10XA Swelling of lower leg 44 6802297 R22.42 [id number] JAMES GARCIA NP [facility] [address] [place] [address] 09/29/2020 11:41:21 09/29/2020 12:38:57 Pain of intercostal space 670607619 R07.82 Exposure t o communicable disease 387744993 Z20.822 [id number] Waleska Matos NP [facility] [address] [place] [address] 02/11/2021 16:34:32 02/12/2021 11:08:44 Hematoma of lower leg 150944471 S80.11XA [id number] JAMES GARCIA NP [facility] [address] [place] [address] 03/14/2021 12:45:30 03/19/2021 14:09:43 Abdominal pain 64879112 R10.9 [id number] EMELIA Alfonso [facility] [address] [place] [address] 07/18/2021 10:56:56 07/22/2021 23:43:22 Constipation 75123576 K59.00 Left lower quadrant pain 532283750 R10.32 [id number] Cristine Sidhu JOURNEYMAN MOLDER [facility] [address] [place] [address] 10/18/2021 19:17:00 11/10/2021 16:33:03 Left sided abdominal pain 789911897 R10.9 Hematoma of lower leg 44 3968877 S80.10XA Long-term current use of anticoagulant 023168452 Z79.01 [id number] Cristine Sidhu NP [facility] [address] [place] [address] 12/29/2021 13:36:24 12/30/2021 10:20:27 Blood coagulation disorder 99721754 D68.61 D68.2 [id number] Olivia Goldberg NP [facility] [address] [place] [address] 01/18/2023 14:00:39 01/18/2023 15:01:49 Health Concerns Section Related Observation LastModified by Organization Detai ls LastModified Time None Recorded Concern Status LastModified by Organization Details LastModified Time None Recorded Advance Directives Directive Y: Payers Insurance Date Sequence Insurance Name Policy Number Policy Pettit Covered Member ID Pettit Member ID Guarantor Name 01/18/2023 2 [place] [id number] Jovana Malik [id number] Jovana Steinino 10/18/2021 1 *SELF PAY* Jovana Malik [id number] Jovana Malik 10/18/2021 2 [place] Jovana Malik [id number] Jovana Helena 01/17/2023 2 [place] [id number] Jovana Malik [id number] Jovana Steinino 10/18/2021 1 [place] [facility] Jovana Malik [id number] Jovana Malik 01/18/2023 1 [place] [facility] Jovana Malik [id number] Jovana Malik Notes Date Note Type Note Provider Name and Address Organization Details Recorded Time 1 text/html General HPI Template - DHReported by Patient This is a 75-year-old female, known to [employer], who calls with concerns for severe abdominal [...] fair fluid intake. JAMES GARCIA NP [address] [place], [address], [place] [facility] 03/14/2021 13:21:32 2 text/html 76 YO F [...] sx's. Christopher Rumplik, PA [address], [place], [address], [place] [facility] 07/18/2021 12:04:00 2 text/html [...] evaluated. Cristine Sidhu NP [address], [place], [address], [place] [facility] 11/09/2021 02:11:05 2 text/html [...] supernatural. Cristine Sidhu NP [address], [place], [address], [place] [facility] 12/29/2021 14:43:53 3 text/html pt did not answer, visit canceled Olivia Goldberg NP [address], [place], [address], [place] [facility] 01/18/2023 19:34:36 OBGyn Episode No OBEpisode recorded.
--- OUTSIDE RECORDS SUMMARY | 2025-02-01 07:38 | XMS_ITS | Patient Health Record ---
Author Organization [facility] Address [address] [place] [address] Care Team Providers Care Combat Rifle Crewmember Name Role Phone EVELIN RAMSAY Primary Care Provider Yenny Hou Unavailable [phone] Allergies Allergen (clinical drug ingredient) Drug/Non Drug [...] 11:35:04 PM Interpretation: Performing Lab:[facility], [address] [facility], [place], Phone - [phone], Director - Arely Notes/Report: Urine Culture, Routine-[id number] Reviewed date:05/04/2024 11:35:22 PM Interpretation: Performing Lab:[facility], [address] [facility], Phone - [phone], Director - Arely Notes/Report: Urine Culture, Routine Final report Result 1 Culture shows less than 10,000 colony forming units of bacteria per milliliter of urine. This colony count is not generally considered to be clinically significant. Urinalysis, Complete-[id number] Reviewed date:05/04/2024 11:35:42 PM Interpretation: Performing Lab:[facility], [address] [facility], Phone - [phone], Director - Arely Notes/Report: Specific [place] 1.009 1.005-1.030 pH 6.5 5.0-7.5 Urine-Color Yellow [...] 25MCG 1 ORAL daily; Durati on: -3 [facility] 06/10/2014 Active ZyrTEC Allergy 10MG [...] 50MG 1 ORAL at bedtime; Duration: -3 [facility] 06/10/2014 Active Meclizine HCl 25 MG 1 tablet as needed Orally [facility] 06/10/2014 Active Albuterol Sulfate (2.5 MG/3ML)0.083% Inhalation 4 x a day prn 06/10/2014 Active Valium 5MG 1 tablet as needed O RAL at bedtime, 1/2 tab prn during the day [facility] 06/10/2014 Active Social History Tobacco [...] Status Risk Notes Problem Postmenopausal atrophic vaginitis (21024715) Postmenopausal atrophic vaginitis (N95.2) Active confirmed Problem Age-related osteoporosis (987505157) Age-related osteoporosis without current pathological fracture (M81.0) Active confirmed Problem Urgent desire to urinate (04523448) Urgency of urination (R39.15) Active confirmed Problem 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 Problem Chronic systolic heart failure (173013815) Chronic systolic (congestive) heart failure (I50.22) Active confirmed Problem Chronic obstructive pulmonary disease (82555342) Chronic obstructive pulmonary disease, unspecified (J44.9) Active confirmed Problem Functional urinary incontinence (074250188) Functional 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) Active confirmed Problem Personal history of primary malignant neoplasm of bronchus (642279577) 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) Active confirmed Vital Signs Temperature 97.7 degrees Fahrenheit 07/18/2024 Blood pressure diastolic 62 mm Hg 07/18/2024 Height 63 in 07/18/2024 Blood pressure systolic 102 mm Hg 07/18/2024 Weight 126 lbs 07/18/2024 BMI 22.32 kg/m2 07/18/2024 Encounters Encounter Location Date Provider Diagnosis Total [address] [address] 05/03/2024 Yennydorothy Elizalde Urgency of urination R39.15 and Abscess of vulva N76.[address] [address] 05/10/2024 Yenny Elizalde Abscess of vulva N76 .[address] [address] 05/17/2024 Yenny Elizalde Abscess of vulva N76 .[address] [address] 07/09/2024 Yenny Tonio Urgency of urination R39.15 ; Acute vaginitis N76.0 and Postmenopausal atrophic vaginitis N95.[address] [address] 07/18/2024 Yenny Elizalde Encounter for screening mammogram for malignant neoplasm of breast Z12.31 and Mastodynia N64.[address] [address] 05/10/2024 Yenny Lovettva Total [address] [address] 05/13/2024 Yenny Elizalde [facility] [address] [place] [address] 06/11/2024 Yenny Elizalde Assessments Encounter Date Diagnosis (ICD Code) Assessment [...] [facility] AND DISCUSSED THIS PAT. [...] Date MEDICARE [address] VEDA NIEVES [id number] SHIRLEY CINDA Self - patient is the insured MEDEX [address] [place] [address] [id number] DANIEL WATSONE Self - patient is the insured Medical [...]
--- OUTSIDE RECORDS SUMMARY | 2025-02-01 07:39 | XMS_ITS | Clinical Summary ---
Author Organization [facility] Address [address] [place] [address] Phone Care Team Providers Care Optical Lathe Operator Name Role Phone Caitlyn Bowie [...] (12/25/2021 4:22 PM EDT): Followed closely by accounting analyst-Dr. Ronald Mills at [facility] hematology- advised to continue Coumadin anticoagulation at [...] (09/09/2021 10:42 PM EST): Followed closely by accounting analyst-Dr. Ronald Mills at [facility] hematology- last seen on 08/05/2021 and advised [...] anticoagulation clinic to keep INR at 1.5-2.0. manager terminal current use of systemic steroids 09/09 Assessment & Plan (12/10/2021 10:38 AM EDT): Carefully continue alternating low dosing as prescribed by her land surveyor manager and consider gentle taper when ready. Daily [...] alternating low dosing as prescribed by her land surveyor manager and consider gentle taper when ready. Daily [...] AM EDT Office Visit [facility] [address] [place] [address] Anna Ellis MD Acquired hypothyroidism (Primary Dx); Hyperparathyroidism; Age-related osteoporosis without current pathological fracture; Adrenal insufficiency 01/12/2025 Refill [facility] [address] [place] [address] Anna Ellis MD Medication Refill from Last [...] 11:40 AM EST Office Visit [facility] [address] [place] [address] [place] [address] Anna Ellis MD [address] [place] [phone] [email or web address] Health Maintenance Due Date Last Done Comments [...] MD LAB BLOOD ORDERABLES F inal Result [address] [address] from Last 3 Months or Most Recently Relevant to Health Maintenance Insurance MEDICARE PART A & B [facility] MEDEX SUPPLEMENT [facility] S[facility] NET FULL Member Subscriber Plan / Payer (Ef fective 2019-Present) Name:Helena, Jovana J Relation to Subscriber:Self Name:Jovana Malik Hebert Payer ID:Not on file Group ID:Not on file Type:Medicaid Address: [address] MEDICARE PART A & B [facility] MEDEX SUPPLEMENT [facility] NET FULL [facility] MEDICARE PART A & B [facility] MEDEX SUPPLEMENT [facility] [place] [place] [address] MEDICARE PART A & B Member Subscriber Plan / Payer (Ef fective 1999-Present) Name:Jovana Malik Member ID:[id number] Relation to Subscriber:Self Name:Jovana Malik Subscriber ID:[id number] Payer ID:[id number] Group ID:Not on file Type:Medicare Address: [employer] [facility] [employer] [facility]. [address] [place] [address] [facility] MEDEX SUPPLEMENT [facility] NET FULL MEDICARE PART A & B Member Subscriber Plan / Payer (Ef fective 1999-Present) Name:Jovana Malik Member ID:[id number] Relation to Subscriber:Self Name:Jovana Malik Subscriber ID:[id number] Payer ID:[id number] Group ID:Not on file Type:Medicare Address: [facility] [employer] [facility] [employer] [employer] [facility] [address] [facility] [place] [address] [facility] MEDEX SUPPLEMENT HEALTH SAFETY NET FULL [facility] MEDICARE PART A & B [facility] MEDEX SUPPLEMENT HEALTH SAFETY NET FULL MEDICARE PART A & B [employer] MEDEX SUPPLEMENT HEALTH SAFETY NET FULL [facility] MEDICARE PART A & B [facility] MEDEX SUPPLEMENT [employer] SAFETY NET FULL MEDICARE PART A & B [facility] MEDEX SUPPLEMENT HEALTH SAFETY NET FULL Care Teams Optical Lathe Operator Relationship Specialty Start Date End Date Caitlyn Bowie MD [address] [place] [address] PCP - General Internal Medicine 09/09/21 Additional Source Comments The information contained in this document represents components of the legal health record. It is not the complete legal health record.[facility]
--- NOTE | 2025-02-01 07:46 | ED.EXTPRO ---
HPI - Extremity Problem General Chief complaint: General Medical Stated complaint: Right leg pain 5 days, hematoma, + thinners Time Seen by Provider: 02/01/25 06:59 Source: patient and old records reviewed Mode of arrival: ambulatory Limitations: no limitations History of Present Illness ED Provider: MARYCRUZ THOMAS Narrative: 79 yo female with PMH of antiphospholipid syndrome on coumadin, KANDY, chronic respiratory failure on 2L O2, anemia, CHF, SVT, anxiety here with c/o hematoma on R upper leg for a few days she was smart and held her coumadin for 3 days. It started after prolonged standing on her feet while cooking. She then also hit the R ankle and has pain on lateral aspect of the lateral malleolus. She notes the pain is increasing up her leg. She has hx of hematomas requiring evacuation in the past. She has no other symptoms. She is concerned given her complicated hx and holding her coumadin. MD Complaint: extremity pain and joint pain Onset (ago): day(s) (few) Pain Consistency: constant Location: right and upper extremity Quality: aching Radiation: proximal and distal Relieving factors: nothing Exacerbating factors: weight bearing, walking and palpation Associated symptoms: denies other symptoms Context: other Related Data Home Medications ?Medication ?Instructions ?Recorded ?Confirmed CPAP (CPAP Machine/Device) 06/30/22 11/11/24 Oxygen Home Use 06/30/22 11/11/24 nebulizers 06/30/22 11/11/24 epinephrine 0.3 mg/0.3 mL 0.3 mg IM USEASDIRECTD PRN 07/14/22 01/16/25 injection, auto-injector Allergic Reaction levothyroxine 25 mcg tablet 50 mcg PO SUSA@0600 01/05/24 01/16/25 (Synthroid) docusate sodium 100 mg capsule 100 mg PO BID 01/14/24 01/16/25 diazepam 5 mg tablet 2.5 mg PO BID PRN anxiety 11/21/24 01/16/25 chlorhexidine gluconate 0.12 % 10 ml PO BID 01/16/25 01/16/25 mouthwash ferrous gluconate 324 mg (38 mg 324 mg PO QAM 01/16/25 01/16/25 iron) tablet folic acid 1 mg tablet 1 mg PO DAILY 01/16/25 01/16/25 levothyroxine 25 mcg tablet 25 mcg PO MOTUWETHFR@0600 01/16/25 01/16/25 (Synthroid) potassium chloride 20 mEq oral 20 meq PO DAILY 01/16/25 01/16/25 packet rosuvastatin 10 mg tablet 10 mg PO MOWEFR@2100 01/16/25 01/16/25 warfarin 1 mg tablet (Jantoven) mg PO DAILY 01/16/25 Previous Rx's ?Medication ?Instructions ?Recorded simethicone 80 mg chewable tablet 80 mg PO QIDWMHS #20 tabs 02/04/24 (Gas Relief (simethicone)) Advair HFA 230 mcg-21 2 puff inhalation BID 90 days #36 03/13/24 mcg/actuation aerosol inhaler grams (fluticasone propion-salmeterol) furosemide 40 mg tablet 80 mg (2 x 40 mg) PO BID #360 tabs 05/01/24 metoprolol succinate 50 mg 50 mg PO BID #180 tabs 05/10/24 tablet,extended release 24 hr (Toprol XL) levocetirizine 5 mg tablet 5 mg PO DAILY 90 days #90 tabs 05/23/24 trazodone 50 mg tablet 100 mg (2 x 50 mg) PO BEDTIME #180 07/01/24 tabs meclizine 25 mg tablet 25 mg PO Q8H PRN dizziness 10 days 07/22/24 #30 tabs montelukast 10 mg tablet 10 mg PO DAILY #90 tabs 08/24/24 albuterol sulfate 90 mcg/actuation 2 inh inhalation Q6H PRN shortness 11/05/24 aerosol inhaler of breath or wheezing 90 days #3 ea fluticasone propionate 50 2 spray intranasal DAILY 90 days 11/05/24 mcg/actuation nasal #3 ea spray,suspension aspirin 81 mg tablet 81 mg PO DAILY #30 tabs 01/16/25 nitroglycerin 0.4 mg sublingual 0.4 mg sublingual Q5MX3 PRN Chest 01/16/25 tablet (Nitrostat) Pain 30 days #30 tabs Allergies Allergy/AdvReac Type Severity Reaction Status Date / Time morphine Allergy Severe Itching Verified 02/01/25 07:13 avocado (AVOCADO) Allergy Mild ITCHY Verified 02/01/25 07:13 THROAT, RASH azithromycin (AZITHROMYCIN) Allergy Mild ITCHY Verified 02/01/25 07:13 THROAT, RASH barium iodide (BARIUM IODIDE) Allergy Mild ITCHY Verified 02/01/25 07:13 THROAT, RASH barium sulfate Allergy Mild Itch Verified 02/01/25 07:13 bee pollen (BEE STINGS) Allergy Mild ITCHY Verified 02/01/25 07:13 THROAT, RASH ciprofloxacin (From CIPRO) Allergy Mild ITCHY Verified 02/01/25 07:13 THROAT, RASH clarithromycin (From BIAXIN) Allergy Mild ITCHY Verified 02/01/25 07:13 THROAT, RASH diatrizoate meglumine (From Allergy Mild ITCHY Verified 02/01/25 07:13 GASTROGRAFIN) THROAT, RASH diatrizoate sodium (From Allergy Mild ITCHY Verified 02/01/25 07:13 GASTROGRAFIN) THROAT, RASH diclofenac (From VOLTAREN) Allergy Mild ITCHY Verified 02/01/25 07:13 THROAT, RASH erythromycin base Allergy Mild ITCHY Verified 02/01/25 07:13 (ERYTHROMYCIN BASE) THROAT, RASH gentamicin (GENTAMICIN) Allergy Mild ITCHY Verified 02/01/25 07:13 THROAT, RASH Iodinated Contrast Media Allergy Mild ITCHY Verified 02/01/25 07:13 (IVP DYE) THROAT, RASH levofloxacin (From LEVAQUIN) Allergy Mild ITCHY Verified 02/01/25 07:13 THROAT, RASH metronidazole (From FLAGYL) Allergy Mild ITCHY Verified 02/01/25 07:13 THROAT, RASH moxifloxacin (From AVELOX) Allergy Mild ITCHY Verified 02/01/25 07:13 THROAT, RASH Penicillins (PENICILLINS) Allergy Mild ITCHY Verified 02/01/25 07:13 THROAT, RASH shrimp (SHRIMP) Allergy Mild ITCHY Verified 02/01/25 07:13 THROAT, RASH Sulfa (Sulfonamide Allergy Mild ITCHY Verified 02/01/25 07:13 Antibiotics) (SULFA THROAT, (SULFONAMIDE ANTIBIOTICS)) RASH vancomycin (VANCOMYCIN) Allergy Mild ITCHY Verified 02/01/25 07:13 THROAT, RASH clindamycin AdvReac Intermediate Unknown Verified 02/01/25 07:13 Review of Systems Review of Systems: Constitutional : No Fever, No Chills Cardiovascular : No Chest Pain, No SOB Respiratory : No Cough, No Dyspnea Gastrointestinal : No Nausea, No Vomiting, No Diarrhea, No abdominal Pain Genitourinary : No Dysuria, No Hematuria Musculoskeletal : positive joint pain, No Myalgias, No Joint Swelling Skin : No Skin lacerations, No rash, pos contusions Neuro : No Weakness, No Numbness All other systems reviewed and are negative [facility] Past Medical History Attestation statement: The following information was validated with the patient. Source: old records reviewed Medical History Chest pain Chest pain Ankle pain Chronic hypercapnic respiratory failure KANDY treated with BiPAP COPD (chronic obstructive pulmonary disease) Open wound Warfarin anticoagulation Complex sleep apnea syndrome Leg pain Anemia Tachycardia DVT (deep venous thrombosis) Compression fracture of body of thoracic vertebra ASD (atrial septal defect) Pleuritic chest pain History of COVID-19 Chronic anticoagulation Hypothyroidism GERD (gastroesophageal reflux disease) Hyperlipidemia Hypertension Factor 5 Leiden mutation, heterozygous History of non-ST elevation myocardial infarction (NSTEMI) Hypoxia Anxiety PTSD (post-traumatic stress disorder) Hemoptysis Dyspnea Tracheobronchitis CLARA positive Diverticulitis Allergic bronchitis (HFpEF) heart failure with preserved ejection fraction Subarachnoid bleed Insomnia Anti-phospholipid antibody syndrome Hypogammaglobulinemia Chronic respiratory failure Arterial insufficiency of lower extremity Complex regional pain syndrome i of right lower limb Post herpetic neuralgia Pulmonary hypertension Pericardial effusion Pulmonary emboli Pleural effusion Radiation fibrosis of lung Pneumonitis Pulmonary nodules Lung cancer Surgical History History of colonoscopy History of lung surgery History of tonsillectomy History of hysterectomy S/P mitral valve clip implantation History of cardiac cath Family History Family History Sister No problems noted. Mother Cardiovascular disease Daughter Tachycardia Other KANDY (obstructive sleep apnea) Social History Social History Household Members: Other Housing: Long Term Do you presently have visiting nurse or other home services: Yes (at home had BICYCLE REPAIR TECHNICIAN that came to visit her) Unable to assess alcohol history related to: Unknown Alcohol intake: never Comment: stand by assist with ambulation Patient Tobacco Use Status: Never used Tobacco Smoked in Last 30 Days: No Second Hand Smoke Exposure: No Use of substances other than those prescribed or required for medical reasons: No Advance Directives: Yes Advance Directives on File: Yes Advance Directives Date on File: 06/15/22 service: No Current occupational status: retired Physical Exam Vital Signs: Vital Signs: Last Vital Signs Temp 97.9 F 02/01/25 10:15 Pulse 78 02/01/25 10:15 Resp 12 02/01/25 10:15 BP 106/52 L 02/01/25 10:15 Pulse Ox 100 02/01/25 10:15 O2 Del Method Room Air 02/01/25 10:15 BMI result Body Mass Index 24.9 Appearance: Alert. Oriented X3. No acute distress. up and walking no issues Eyes: Pupils equal, round and reactive to light. ENT: Pharynx normal. Neck: Normal inspection. Neck supple. CVS: Normal heart rate and rhythm. Pulses normal. Respiratory: No respiratory distress. Breath sounds normal. Abdomen: Soft and nontender. Skin: Skin warm and dry. Normal skin color. Extremities: please see below - R calf soft hematoma except proximal nickel sized contusion noted - she is distal NV intact, compartments are soft and compressible. Neuro: Oriented X 3. No motor deficit. No sensory deficit. CN2-12 intact Medications Administered Discontinued Medications Generic Name Dose Route Start Last Admin Trade Name Freq PRN Reason Stop Dose Admin Potassium Chloride 40 meq 02/01/25 08:25 02/01/25 08:48 Potassium Chloride Er 20 Meq Tab.Er.Prt PO 02/01/25 08:26 Not Given ONCE ONE Medical Decision Making Medical Decision Making [facility] Narrative: 79 yo female with PMH of antiphospholipid syndrome on coumadin, KANDY, chronic respiratory failure on 2L O2, anemia, CHF, SVT, anxiety here with c/o R calf hematoma and R ankle pain after direct hit to the ankle. She is NV intact, no signs of expaning hematoma or compartment syndrome. She has no signs of infection. Given hx I am going to obtain xray of ankle, DVT study. check INR Differential Diagnosis Differential Diagnoses: The differential diagnosis associated with the presentation includes hematoma, DVT, strain, sprain NV intact doubt ischemia or compartment syndrome Admission/Observation Consideration of admission/observation: Escalation of care including admission/observation considered labs reassuring other than K given 40meq INR 1.3 her range is 1.5 to 2 - would hold lovenox given bleeding history and she is taking coumadin tonight at this time stable for DC no expanding lesion or compartment syndrome Lab Data [facility] Lab Attestation statement: I reviewed the patient's lab results. H/H stable, K 3.0 02/01/25 07:49 02/01/25 07:49 Labs: Lab Results 02/01/25 Range/Units 07:49 WBC 11.4 H (4.8-10.8) X10*3/uL RBC 3.63 L (4.20-5.50) X10*6/uL Hgb 12.2 (12.0-16.0) g/dl Hct 36.4 L (37.0-47.0) % MCV 100.3 H (80.0-98.0) fL MCH 33.6 H (27.0-33.0) pg MCHC 33.5 (31.0-35.0) g/dl RDW 14.4 (11.0-16.0) % Plt Count 225 (160-400) X10*3/uL MPV 11.2 (9.4-12.3) fL Immature Gran % (Auto) 1.3 H (0.0-0.4) % Neut % (Auto) 80.1 H (45-73) % Lymph % (Auto) 8.5 L (20-40) % Bartholomew % (Auto) 8.5 (2-11) % Eos % (Auto) 0.8 (0-4) % Baso % (Auto) 0.8 (0-2) % Lymph # (Auto) 1.0 L (1.2-4.9) X10*3/uL Bartholomew # (Auto) 1.0 (0.1-1.2) X10*3/uL Eos # (Auto) 0.1 (0.0-0.4) X10*3/uL Baso # (Auto) 0.1 (0.0-0.2) X10*3/uL Abs Immat Gran (auto) 0.15 H (0.00-0.03) X10*3/uL Absolute Neuts (auto) 9.2 H (2.0-8.3) x10*3/uL Absolute Nucleated RBC 0.000 (0.0-0.012) X10*3/uL Nucleated RBC % (auto) 0.0 (0.0-0.2) /100WBC PT 14.4 H D (10.9-12.4) SEC INR 1.3 H (0.9-1.1) Sodium 140 (135-145) mmol/L Potassium 3.0 L (3.3-5.1) mmol/L Chloride 96 (96-108) mmol/L Carbon Dioxide 35 H (22-29) mmol/L Anion Gap 12 (12-20) BUN 22 H (9-16) mg/dL Creatinine 0.81 (0.5-1.4) mg/dL Estim Creat Clear Calc 47.0 Estimated GFR > 60 Random Glucose 110 (60-115) mg/dL Calcium 10.4 H (8.4-10.2) mg/dL Total Creatine Kinase 27 (26-140) U/L Independent Interpretation I performed an independent interpretation of an: Plain X-Ray (no fx) and Ultrasound (no DVT) Radiology Impression Discussion of test interpretation with radiology: I have reviewed the radiologist's reading. External Record Review External record reviewed: Inpatient record and Outpatient record Prescription Management I considered prescription management with: Other Discharge Plan Discharge Clinical Impression: Hematoma, Acute hypokalemia Patient Disposition: Home, Self-Care Instructions: Hypokalemia (ED), Hematoma (ED) Additional Instructions: potassium was 3.0 TAKE 40MEQ TOMORROW THEN RESUME YOUR NORMAL DOSING INR 1.3 START COUMADIN PLANNED TONIGHT RECHECK INR IN 48 HOURS rest and stay hydrated return for worsening swelling, numbness, weakness, increase in size of bleeding CLINICAL HISTORY: pain contusion lateral malleolus 3 view right ankle Comparison: 01/02/2025 Findings: No acute fractures. Ankle mortise intact. No significant loss of joint space, osteophytes, or erosions. No ankle effusion. No radiopaque foreign body. There is regional arterial calcification. IMPRESSION: 1. No acute findings Findings: The visualized deep veins are fully compressible with normal Doppler color flow and spectral tracings. No popliteal cyst. IMPRESSION: 1. Negative for right lower extremity deep vein thrombosis Prescriptions: No Action Advair HFA 230-21 mcg/actuation HFA aerosol inhaler 2 puff inhalation BID 90 Days Qty: 36 4RF furosemide 40 mg tablet 80 mg PO BID Qty: 360 3RF metoprolol succinate [Toprol XL] 50 mg tablet extended release 24 hr 50 mg PO BID Qty: 180 3RF levocetirizine 5 mg tablet 5 mg PO DAILY 90 Days Qty: 90 3RF trazodone 50 mg tablet 100 mg PO BEDTIME Qty: 180 3RF meclizine 25 mg tablet 25 mg PO Q8H PRN (Reason: dizziness) 10 Days Qty: 30 0RF montelukast 10 mg tablet 10 mg PO DAILY Qty: 90 3RF albuterol sulfate 90 mcg/actuation HFA aerosol inhaler 2 inh inhalation Q6H PRN (Reason: shortness of breath or wheezing) 90 Days Qty: 3 3RF fluticasone propionate 50 mcg/actuation spray,suspension 2 spray intranasal DAILY 90 Days Qty: 3 3RF levothyroxine [Synthroid] 25 mcg Tablet 50 mcg PO SUSA@0600 docusate sodium 100 mg Capsule 100 mg PO BID simethicone [Gas Relief (simethicone)] 80 mg Tablet,Chewable 80 mg PO QIDWMHS Qty: 20 0RF levothyroxine [Synthroid] 25 mcg tablet 25 mcg PO MOTUWETHFR@0600 folic acid 1 mg tablet 1 mg PO DAILY chlorhexidine gluconate 0.12 % mouthwash 10 ml PO BID potassium chloride 20 mEq packet 20 meq PO DAILY rosuvastatin 10 mg tablet 10 mg PO MOWEFR@2100 warfarin [Jantoven] 1 mg tablet PO DAILY ferrous gluconate 324 mg (38 mg iron) tablet 324 mg PO QAM nitroglycerin [Nitrostat] 0.4 mg Tablet, Sublingual 0.4 mg sublingual Q5MX3 PRN (Reason: Chest Pain) 30 Days Qty: 30 0RF aspirin 81 mg tablet 81 mg PO DAILY Qty: 30 3RF (DME) nebulizers Misc See Rx Instructions .Route Rx Instructions: As directed (DME) CPAP Machine/Device Device See Rx Instructions .Route Rx Instructions: As directed (DME) Oxygen Home Use Kit See Rx Instructions .Route Rx Instructions: As directed epinephrine 0.3 mg/0.3 mL auto-injector 0.3 mg IM USEASDIRECTD PRN (Reason: Allergic Reaction) diazepam 5 mg tablet 2.5 mg PO BID PRN (Reason: anxiety) Print Language: [place] Leonean
[2025-02-01 07:56] LABS: MANUAL DIFF FLAG NO
[2025-02-01 08:05] LABS: INTERNATIONAL NORM RATIO 1.3 (0.9-1.1); Prothrombin Time 14.4 SEC (10.9-12.4)
[2025-02-01 08:16] LABS: Hematocrit 36.4 % (37.0-47.0); Hemoglobin 12.2 g/dl (12.0-16.0); Imm Gran Abs Auto 0.15 X10*3/uL (0.00-0.03); Imm Gran Pct Auto 1.3 % (0.0-0.4); Lymphocytes Absolute Auto 1.0 X10*3/uL (1.2-4.9); Mean Corpuscular HGB Conc 33.5 g/dl (31.0-35.0); Mean Corpuscular Hemoglobin 33.6 pg (27.0-33.0); Mean Corpuscular Volume 100.3 fL (80.0-98.0); NRBC Abs Auto 0.000 X10*3/uL (0.0-0.012); NRBC Pct Auto 0.0 /100WBC (0.0-0.2); Platelet Count 225 X10*3/uL (160-400); Red Blood Count 3.63 X10*6/uL (4.20-5.50); White Blood Count 11.4 X10*3/uL (4.8-10.8)
[2025-02-01 08:23] LABS: Anion Gap 12 (12-20); Blood Urea Nitrogen 22 mg/dL (9-16); Calcium 10.4 mg/dL (8.4-10.2); Carbon Dioxide 35 mmol/L (22-29); Chloride 96 mmol/L (96-108); Creatinine Clr Calc Pharmacy 47.0; Estimated Glomerular Filt Rate > 60; Potassium 3.0 mmol/L (3.3-5.1); Sodium 140 mmol/L (135-145)
--- NOTE | 2025-02-01 08:48 | PC.NURSE ---
Pt brought in her own 40 meq of potassium powder - checked with OK'd for her to take.
[2025-02-01 10:15] VITALS: BP 106/52; PULSE 78; RESP 12; TEMP 36.6; O2SAT 100
[2025-02-01 11:10] VITALS: BP 106/52; PULSE 78; RESP 12; TEMP 36.6; O2SAT 100
== END 2025-02-01 11:11 | disposition home or self-care (01) ==
PROVIDERS: Emergency Provider Emergency Medicine; PCP Internal Medicine
DX: S80.11XA Contusion of right lower leg, initial encounter (principal); W22.8XXA Striking against or struck by other objects, initial encounter; E87.6 Hypokalemia; Y93.G3 Activity, cooking and baking; M79.604 Pain in right leg; Y92.010 Kitchen of single-family (private) house as the place of occurrence of the external cause; Y99.9 Unspecified external cause status
CPT/HCPCS: 36415; 73610; 80048; 82550; 85025; 85610; 93971; 99284

== ENCOUNTER → 2025-02-01 07:18 | Outpatient (BNV) | payer MEDICARE, SELFPAY | PROVIDERS: Emergency Provider Emergency Medicine; PCP Internal Medicine; Visit Provider Specialist | DX: R22.41 Localized swelling, mass and lump, right lower limb (principal); S80.11XA Contusion of right lower leg, initial encounter; M25.571 Pain in right ankle and joints of right foot; S90.01XA Contusion of right ankle, initial encounter; M79.661 Pain in right lower leg | CPT/HCPCS: 73610 ==

== ENCOUNTER 2025-02-06 09:50 | Outpatient (REF) | payer MEDICARE, SELFPAY ==
--- OUTSIDE RECORDS SUMMARY | 2025-02-06 10:25 | XMS_ITS | Encounter Summary ---
Author Organization [facility] Address [address] [place] [address] Care Team Providers Care Route Delivery Clerk Name Role Phone Caitlyn Bowie MD Primary Care Provider +1- [phone] Encounter Details Date Type Department Care Team (Late st Contact Info) Description 07/08/2020 Scanned Document [facility] Health Information Management [address] [place] [address] External, Provider Social History Tobacco Use Types [...] [facility] Building [address] [place], [place] [id number] Ronald Mills MD [address] [place] [address] [address] [place] [address] documented as of this encounter [...] as of this encounter Care Teams Route Delivery Clerk Relationship Specialty Start Date End Date Caitlyn Bowie MD [address] [address] PCP - General Internal Medicine 05/06/21 documented as of this encounter
--- OUTSIDE RECORDS SUMMARY | 2025-02-06 10:25 | XMS_ITS | Clinical Summary ---
Author Organization [facility] Address [address] [place] [address] Care Team Providers Care Food Preservation Scientist Name Role Phone Brennan Burnett MD Primary [...] age to complete this topic Care Teams Food Preservation Scientist Relationship Specialty Start Date End Date Brennan Burnett MD [address] [place] [address] PCP - General Internal Medicine 07/06/20
--- OUTSIDE RECORDS SUMMARY | 2025-02-06 10:26 | XMS_ITS | Clinical Summary ---
Author Organization [address] [facility] Address [address] [place] [address] Phone Care Team Providers Care Firefighting Equipment Specialist Name Role Phone Caitlyn Bowie MD Primary Care Provider +1- [phone] Allergies Active Allergy Reactions Criticality Noted Date [...] 20 mg as needed by her previous director operating room which she has taken sporadically. I have asked her to take this daily to see if this improves her symptoms and she has a follow-up appointment with Dr. Shah on September 16 which she will keep. We also had a long conversation regarding the fact that she is seeing 3 different director operating room for the same problems. We informed her [...] continues to see Dr. Avalos or her director operating room at [facility]. She verbalized understanding of this and [...] right lower leg 03/06/2019 Antiphospholipid antibody syndrome ([facility] V24) 12/24/2018 Adrenal insufficiency ([facility] V24) 08/23/2018 Allergic rhinitis 08/23/2018 Hyperparathyroidism ([facility] V24) 08/23/2018 MRSA infection 08/23/2018 Overview (05/16/2024): 06/2009, s/p thoracotomy infection Osteoarthritis 08/23/2018 Radiation-induced pulmonary fibrosis ([facility] V2 4) 11/13/2017 Bronchiectasis ([facility] V24, [facility] V28) 2017 Leg edema 08/08/2017 Restrictive lung disease 08/08/2017 Chronic obstructive pulmonar y disease ([facility] V24, [facility] V28) 04/13/2017 Fibromyalgia 04/13/2017 Congestive heart failure ([facility] V24, [facility] V 28) 04/04/2017 Heterozygous factor V Leiden mutation ([facility] V 24) 04/04/2017 Obstructive sleep apnea syndrome 04/04/2017 Overview (05/16/2024): CPAP Pleural effusion 04/04/2017 Pulmonary hypertension ([facility] V24, [facility] V28 ) 04/04/2017 [...] EDT - 01/19/2025 9:[address] [facility] Emergency [address] [place] [phone] Discharge Disposition: Home or Self Care 12/23/2024 9:00 AM EDT Office Visit V[facility] Surgery - [place] [address] [place] [phone] Jerry Li MD Complex regional pain syndrome type 1 of both lower extremities (Primary Dx); Leg swelling 12/10/2024 2:43 PM EDT - 12/10/2024 4:[address] [facility] Emergency [address] [place] [address] Head injury, initial encounter (Primary Dx) Discharge Disposition: Home or Self Care 12/10/2024 1:30 PM EDT Office Visit [facility] [address] [facility] [address] [place] [address] Shirley Chaidez PA 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) from Last 3 Months Immunizations Name Administration [...] PROCEDURE: HISTORICAL TONSILLECTOMY OTHER SURGICAL HISTORY PROCEDURE: UT RMVL LUNG XCP TOT PNEUMONECTOMY SLEEVE LOBECTOMY; [...] pathology report UPPER GASTROINTESTINAL ENDOSCOPY 05/03/2015 PROCEDURE: UT UPPER GI ENDOSCOPY PERFORMED MITRAL CLIP PROCEDURE Medical History Medical History Date Comments Akathisia 04/15/2013 DX:Akathisia Anxiety 12/07/2016 DX:Anxiety Bronchiectasis ([facility] V24, [facility] V28) 08/08/2017 DX:Bronchiectasis (HCC) Cataract 08/26/2014 DX:Cataract [...] dori pect Heterozygous factor V Leiden mutation ([facility] V24) 04/04/2017 DX:Heterozygous factor V Lei den [...] syndrome 02/18/2013 DX:Postc oncussion syndrome Pulmonary hypertension ([facility] V24, [facility] V28) 04/04/2017 DX:Pulmonary hypertension (H CC) Restrictive lung disease 08/08/2017 DX:Rest rictive lung disease 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 DX:Zinc deficien cy Obstructive sleep apnea syndrome 04/04/2017 DX:Obstructive sleep apnea syndrome; COMMENT: CPAP Radiation-induced pulmonary fibrosis ([facility] V24) 11/13/2017 DX:Radiation-induced pulmona ry fibrosis (HCC) Adrenal insufficiency ([facility] V24) 08/23/2018 DX:Adrenal insufficiency (HCC) Hyperparathyroidism ([facility] V24) 08/23/2018 DX:Hyperparathyroidism (HCC) Osteoporosis 11/17/2016 DX:Osteoporosis [...] Mx LLL resection, Chemo, RT, Cisplatin, Vinorelbine [phone] Antiphospholipid antibody sy ndrome ([facility] V24) 12/24/2018 DX:Antiphospholipid antibody syndrome (HCC) 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 Hyperparathyroidism ([facility] V24) DX:Hyperparathyroidism (HCC) Adrenal insufficiency ([facility] V24) DX:Adrenal insufficiency (HCC) Family History Medical [...] Description 02/21/2025 4:30 PM EDT Office Visit [facility] [address] [place] [phone] Shirley Chaidez PA [address] [place] [address] Health Maintenance Due Date Last Done Comments [...] Signed Date: 12/10/2024 16:12 ET Workstation ID: [id number] Transcribed By: Self Edit Transcribed Date: 12/10/2024 [...] Signed Date: 12/10/2024 16:12 ET Workstation ID: [id number] Transcribed By: Self Edit Transcribed Date: 12/10/2024 16:10 ET Kelly KAPOOR IM CT PROCEDURES Final Resul t * (ABNORMAL) Comprehensive metabolic panel (06/15/2024 1:26 PM EST) Sodium 140 133 - 145 mmol/L LAB CHEMISTRY METHOD 06/15/2024 2:10 PM [facility] Potassium 4.7 3.5 - 5.5 mmol/L LAB CHEMISTRY METHOD 06/15/2024 2:10 PM [facility] Chloride 102 96 - 110 mmol/L LAB CHEMISTRY METHOD 06/15/2024 2:10 PM [facility] CO2 34(H) 21 - 32 mmol/L LAB CHEMISTRY METHOD 06/15/2024 2:10 PM [facility] Anion Gap 4 3 - 11 LAB CHEMISTRY METHOD 06/15/2024 2:10 PM [facility] Glucose 95 70 - 100 mg/dL LAB CHEMISTRY METHOD 06/15/2024 2:10 PM [facility] BUN 29(H) 5 - 25 mg/dL LAB CHEMISTRY METHOD 06/15/2024 2:10 PM [facility] Creatinine 0.95 0.50 - 1.10 mg/dL LAB CHEMISTRY METHOD 06/15/2024 2:10 PM [facility] eGFR 60 >=60 mL/min/1. 73m2 LAB CHEMISTRY METHOD 06/15/2024 2:10 PM [facility] Comment:Calculation based on the Chronic Kidney Disease Epidemiology Collaboration (CKD-EPI) equation refit without adjustment for race. BUN/Creatinine Ratio 30.5 LAB CHEMISTRY METHOD 06/15/2024 2:10 PM [facility] Calcium 10.1 8.5 - 10.5 mg/dL LAB CHEMISTRY METHOD 06/15/2024 2:10 PM [facility] AST (SGOT) 35 10 - 42 unit/L LAB CHEMISTRY METHOD 06/15/2024 2:10 PM [facility] ALT (SGPT) 39 10 - 60 unit/L LAB CHEMISTRY METHOD 06/15/2024 2:10 PM [facility] Alkaline Phosphatase 83 42 - 121 unit/L LAB CHEMISTRY METHOD 06/15/2024 2:10 PM [facility] Total Protein 6.4 6.0 - 8.0 g/dL LAB CHEMISTRY METHOD 06/15/2024 2:10 PM [facility] Albumin 3.3 3.2 - 5.0 g/dL LAB CHEMISTRY METHOD 06/15/2024 2:10 PM [facility] Total Bilirubin 0.4 0.0 - 1.4 mg/dL LAB CHEMISTRY METHOD 06/15/2024 2:10 PM [facility] Blood Venous blood specimen / Unknown Venipuncture / Unknown 06/15/2024 1:26 PM EST 06/15/2024 1:32 PM EST us Jovana Cruz MD LAB BLOOD ORDERABLES Final Resul t [facility] [address] [place] [address], from Last 3 Months or Most Recently Relevant to Health Maintenance Insurance MEDICARE BLUE CROSS - [place] MEDICARE ADVANTAGE Advance Directives Documents on File Type Date Recorded Patient Customer Response Representative Expl anation Health Care Decision (hx) 10/18/2013 [...] (hx) 10/04/2013 AD LACEY DIRECTIVE Care Teams Firefighting Equipment Specialist Relationship Specialty Start Date End Date Caitlyn Bowie MD [address] [place] [address] PCP - General Internal Medicine 12/10/24
--- OUTSIDE RECORDS SUMMARY | 2025-02-06 10:26 | XMS_ITS | Encounter Summary ---
Author Organization [facility] Address [address] [place] [address] Phone Care Team Providers Care Cell Reliner Name Role Phone Caitlyn Bowie MD Primary Care Provider +1- [phone] Encounter Details Date Type Department Care Team (Late Contact Info) Description 12/10/2024 Documentation Only [facility] [address] [place] [address] Marina Abdi [address] [place] [address] Social History Tobacco Use Types [...] Visit [facility] [address] [place] [address] Rubén Ashraf MD [address] [place] [address] [place] [address] documented as of this encounter Visit Diagnoses Not on filedocumented in this encounter Care Teams Cell Reliner Relationship Specialty Start Date End Date Caitlyn Bowie MD [address] [place], [place] PCP - General Internal Medicine 09/24/24 documented as of this encounter
--- OUTSIDE RECORDS SUMMARY | 2025-02-06 10:26 | XMS_ITS | Clinical Summary ---
Author Organization [facility] Address [address] [place] [address] Care Team Providers Care Supplier Manager Name Role Phone Caitlyn Bowie MD Primary Care Provider +1- [phone] Allergies Active Allergy Reactions Criticality Noted Date [...] Breath High 05/09/2008 Bronchospasm or Wheezing Ipratropium [place] Unknown/Patient and Family Unable to Define Medium [...] 1 capsule by mouth daily. Active B Eogjfyy-B-Bykty Acid (STRESS 500 B-COMPLEX PO) Take 1 [...] Type Department Care Team Description 11/22/2024 Telephone [facility] Neurology Sports [address] [phone] Yary Whitten DO from Last 3 Months [...] MEDICARE PART A & B [facility] Care Teams Supplier Manager Relationship Specialty Start Date End Date Caitlyn Bowie MD [address] [place] [address] PCP - General Internal Medicine 03/20/23
--- OUTSIDE RECORDS SUMMARY | 2025-02-06 10:26 | XMS_ITS | Clinical Summary ---
Author Organization [facility] Address [address] [place] [address] Care Team Providers Care Customer Service Sales Associate Name Role Phone Caitlyn Bowie Primary Care Provider [phone] Allergies Active Allergy Reactions Criticality Noted Date [...] Throat tightness Throat tightness Throat tightness Ipratropium [place] Unknown Medium 12/18/2021 Isosorbide Mononitrate 11/23/2020 Other [...] topic Insurance MEDICARE PART A & B [facility] Care Teams Customer Service Sales Associate Relationship Specialty Start Date End Date Caitlyn Bowie [address] [place] [address] PCP - General Internal Medicine 07/18/22
[2025-02-06 12:05] LABS: Potassium 3.4 mmol/L (3.3-5.1)
== END 2025-02-06 09:51 | disposition home or self-care (01) ==
LOC: HO.LAB 09:50
PROVIDERS: PCP Internal Medicine; Visit Provider Internal Medicine Cardiovascular Disease
DX: E87.6 Hypokalemia (principal)
CPT/HCPCS: 36415; 84132

== ENCOUNTER → 2025-02-10 01:30 | Outpatient (BNV) | payer MEDICARE, SELFPAY | PROVIDERS: Emergency Provider Emergency Medicine; Visit Provider Radiology Diagnostic Radiology | DX: J90 Pleural effusion, not elsewhere classified (principal) | CPT/HCPCS: 71045 ==

== ENCOUNTER 2025-02-10 01:41 | Emergency (ER) | payer MEDICARE, SELFPAY ==
[2025-02-10] VITALS (9 sets, daily range): BP systolic 108–159; BP diastolic 45–79; PULSE 73–91; RESP 16–20; TEMP 37.1–37.5; O2SAT 98–100; BMI 24.2
--- NOTE | 2025-02-10 | ECG_ITS ---
Test Reason : CP Blood Pressure : */* mmHG Vent. Rate : 89 BPM Atrial Rate : 89 BPM P-R Int : 168 ms QRS Dur : 138 ms QT Int : 406 ms P-R-T Axes : 63 -60 62 degrees QTcB Int : 493 ms Normal sinus rhythm Possible Left atrial enlargement Right bundle branch block Left anterior fascicular block Bifascicular block Minimal voltage criteria for LVH, may be normal variant ( R in aVL ) Abnormal ECG When compared with ECG of 15-Jan-2025 19:16, No significant change was found Referred By: Generic ED Physician Electronically Signed By: CAROL ANN PAK
--- NOTE | ~2025-02-10 | XR_ITS ---
CLINICAL HISTORY: chest pain 1 view chest x-ray. Comparison: CR - XR CHEST 1V - 01/15/25 23:[address]/SR - CT ABDOMEN PELVIS WO IV CON - 11/03/24 14:47 EDT Findings: There is an unchanged small left pleural effusion. There is unchanged scarring in the left mid lung. Lungs appear otherwise clear. Cardiomediastinal silhouette is stable. There is a mitral valve clip. IMPRESSION: Stable small left pleural effusion. This document has been electronically signed by: Deepak Cee MD on 02/10/2025 04:18:44
[2025-02-10 02:00] LABS: MANUAL DIFF FLAG NO
[2025-02-10 02:02] LABS: Hematocrit 34.9 % (37.0-47.0); Hemoglobin 11.8 g/dl (12.0-16.0); Imm Gran Abs Auto 0.11 X10*3/uL (0.00-0.03); Imm Gran Pct Auto 0.8 % (0.0-0.4); Lymphocytes Absolute Auto 1.6 X10*3/uL (1.2-4.9); Mean Corpuscular HGB Conc 33.8 g/dl (31.0-35.0); Mean Corpuscular Hemoglobin 33.2 pg (27.0-33.0); Mean Corpuscular Volume 98.3 fL (80.0-98.0); NRBC Abs Auto 0.000 X10*3/uL (0.0-0.012); NRBC Pct Auto 0.0 /100WBC (0.0-0.2); Platelet Count 198 X10*3/uL (160-400); Red Blood Count 3.55 X10*6/uL (4.20-5.50); White Blood Count 14.1 X10*3/uL (4.8-10.8)
--- OUTSIDE RECORDS SUMMARY | 2025-02-10 02:13 | XMS_ITS | Clinical Summary ---
Author Organization [facility] Address [address] [place] [address] Care Team Providers Care Tape Recording Machine Operator Name Role Phone Brennan Burnett MD Primary Care Provider [phone] Allergies Active Allergy Reactions Criticality Noted Date [...] age to complete this topic Care Teams Tape Recording Machine Operator Relationship Specialty Start Date End Date Brennan Burnett MD [address] [place] [address] PCP - General Internal Medicine 07/06/20
--- OUTSIDE RECORDS SUMMARY | 2025-02-10 02:13 | XMS_ITS | Encounter Summary ---
Author Organization [facility] Address [address] [place] [address] Phone Care Team Providers Care Hotel Reservation Agent Name Role Phone Caitlyn Bowie MD Primary Care Provider [phone]- [phone] Encounter Details Date Type Department Care Team (Late Contact Info) Description 12/10/2024 Documentation Only [facility] [address] [place] [address] Marina Abdi [address] [place] [address] Social History Tobacco Use Types [...] Visit [facility] [address] [place] [address] Rubén Ashraf MD [address] [place] [address] [place] [address] documented as of this encounter Visit Diagnoses Not on filedocumented in this encounter Care Teams Hotel Reservation Agent Relationship Specialty Start Date End Date Caitlyn Bowie MD [address] [place], [place] PCP - General Internal Medicine 09/24/24 documented as of this encounter
--- OUTSIDE RECORDS SUMMARY | 2025-02-10 02:13 | XMS_ITS | Patient Health Record ---
Author Organization [facility] Address [address] [place] [address] Care Team Providers Care Bundles Hanger Name Role Phone Shruti Bowieberly Primary Care Provider Cristian Fountain Unavailable [phone] Allergies Allergen (clinical drug ingredient) Drug/Non Drug [...] Status W/U Status Risk Notes Problem Diverticulitis (653732486) Diverticulitis (K57.92) Active confirmed Problem Irritable bowel syndrome characterized by constipation (664599563) Irritable bowel syndrome with constipation (K58.9) Active confirmed Problem Gastroesophageal reflux disease (994027368) GERD (gastroesophageal reflux disease) (K21.9) Active confirmed Plan Of Treatment No Information Insurance Providers Payer Name Payer Address Payer Phone Subscriber Number Group Number Insured Name Patient Relationship to Insured Coverage Start Date Coverage End Date MEDICARE OF [place] [address] [place] [address] [id number] CINDA WATSON Self - patient is the insured MED[employer] ATTN CLAIMS [address] [place] [address] [id number] CINDA WATSON Self - patient is the insured Medical (General) History Medical History History ICD Code WY-04/2021-sees Dr. 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 Hogan at [facility] GERD-has had EGD's with Dr. oGmes Pneumomias Hypothyroidism Surgical History Surgery Date(Month/Year) Tonsils and adenoids BOLA Lung cancer-Left lower lobectomy at [facility], XRT, Chemo 2008
--- OUTSIDE RECORDS SUMMARY | 2025-02-10 02:14 | XMS_ITS | Clinical Summary ---
Author Organization [facility] Address [address] [place] [address] Care Team Providers Care Baseball Glove Shaper Name Role Phone Caitlyn Bowie Primary Care Provider [phone] Allergies Active Allergy Reactions Criticality Noted Date [...] Throat tightness Throat tightness Throat tightness Ipratropium [place] Unknown Medium 12/18/2021 Isosorbide Mononitrate 11/23/2020 Other [...] & B [facility] Care Teams Baseball Glove Shaper Relationship Specialty Start Date End Date Caitlyn Bowie [address] [place] [address] PCP - General Internal Medicine 07/18/22
--- OUTSIDE RECORDS SUMMARY | 2025-02-10 02:14 | XMS_ITS | Clinical Summary ---
Author Organization [facility] Address [address] [place] [address] Care Team Providers Care Chemical Dependency Counselor Name Role Phone Caitlyn Bowie MD Primary Care Provider +1- [phone] Allergies Active Allergy Reactions Criticality Noted Date [...] Breath High 05/09/2008 Bronchospasm or Wheezing Ipratropium [place] Unknown/Patient and Family Unable to Define Medium [...] 1 capsule by mouth daily. Active B Jlblfcu-P-Xczvi Acid (STRESS 500 B-COMPLEX PO) Take 1 [...] Type Department Care Team Description 11/22/2024 Telephone [facility] Neurology Sports [address] [phone] Yary Whitten DO from Last 3 Months [...] & B MEDICARE PART A & B [facility] Care Teams Chemical Dependency Counselor Relationship Specialty Start Date End Date Caitlyn Bowie MD [address] [place] [address] PCP - General Internal Medicine 03/20/23
--- OUTSIDE RECORDS SUMMARY | 2025-02-10 02:14 | XMS_ITS | Clinical Summary ---
Author Organization [facility] Address [address] [place] [address] Phone Care Team Providers Care Sat Math Tutor Name Role Phone Caitlyn Bowie MD [...] (12/25/2021 4:22 PM EDT): Followed closely by state comptroller-Dr. Ronald Mills at [facility] hematology- advised to continue Coumadin anticoagulation [...] (09/09/2021 10:42 PM EST): Followed closely by state comptroller-Dr. Ronald Mills at [facility] hematology- last seen on 08/05/2021 and [...] anticoagulation clinic to keep INR at 1.5-2.0. detention current use of systemic steroids 09/09 Assessment & Plan (12/10/2021 10:38 AM EDT): Carefully continue alternating low dosing as prescribed by her prototyper and consider gentle taper when ready. Daily [...] alternating low dosing as prescribed by her prototyper and consider gentle taper when ready. Daily [...] AM EDT Office Visit [facility] [address] [place] [address] Anna Ellis MD Acquired hypothyroidism (Primary Dx); Hyperparathyroidism; Age-related osteoporosis without current pathological fracture; Adrenal insufficiency 01/12/2025 Refill [facility] [address] [place] [address] Anna Ellis MD Medication Refill from Last [...] 11:40 AM EST Office Visit [facility] [address] [place] [address] [place] [address] Anna Ellis MD [address] [place] [address] [email or web address] Health Maintenance Due Date Last Done [...] MD LAB BLOOD ORDERABLES F inal Result [address] [address] from Last 3 Months or Most Recently Relevant to Health Maintenance Insurance MEDICARE PART A & B [facility] MEDEX SUPPLEMENT [facility] SAFETY NET FULL Member Subscriber Plan / Payer (Ef fective 2019-Present) Name:Helena, Jovana J Relation to Subscriber:Self Name:Jovana Malik Hebert Payer ID:Not on file Group ID:Not on file Type:Medicaid Address: [address] MEDICARE PART A & B [facility] MEDEX SUPPLEMENT [facility] NET FULL [facility] MEDICARE PART A & B [facility] MEDEX SUPPLEMENT [facility] [place] [address] [address] MEDICARE PART A & B [facility] MEDEX SUPPLEMENT [facility] NET FULL MEDICARE PART A & B Member Subscriber Plan / Payer (Ef fective 1999-Present) Name:Jovana Malik Member ID:[id number] Relation to Subscriber:Self Name:Jovana Malik Subscriber ID:[id number] Payer ID:[id number] Group ID:Not on file Type:Medicare Address: [facility] [employer] [facility] [address] [facility] [place] [address] [facility] MEDEX SUPPLEMENT HEALTH SAFETY NET FULL [facility] MEDICARE PART A & B [facility] MEDEX SUPPLEMENT HEALTH SAFETY NET FULL MEDICARE PART A & B [facility] MEDEX SUPPLEMENT HEALTH SAFETY NET FULL [facility] MEDICARE PART A & B [facility] MEDEX SUPPLEMENT [employer] SAFETY NET FULL MEDICARE PART A & B [facility] MEDEX SUPPLEMENT HEALTH SAFETY NET FULL Care Teams Sat Math Tutor Relationship Specialty Start Date End Date Caitlyn Bowie MD [address] [place] [address] PCP - General Internal Medicine 09/09/21 Additional Source Comments The information contained in this document represents components of the legal health record. It is not the complete legal health record.[facility]
--- OUTSIDE RECORDS SUMMARY | 2025-02-10 02:14 | XMS_ITS | Patient Health Record ---
Author Organization [facility] Address [address] [place] [address] Care Team Providers Care Computer Instructor Name Role Phone EVELIN RAMSAY Primary Care Provider Yenny Hou Unavailable [phone] Allergies Allergen (clinical drug ingredient) Drug/Non Drug [...] UROBILINOGEN Neg BILIRUBIN Neg BLOOD Neg Urinalysis, Complete-[id number] Reviewed date:05/04/2024 11:35:42 PM Interpretation: Performing Lab:[facility], [address] [place] [address], Phone - [phone], Director - Arely Notes/Report: Specific [place] 1.009 1.005-1.030 pH 6.5 5.0-7.5 Urine-Color Yellow [...] Bacteria None seen None seen/Few Urine Culture, Routine-[id number] Reviewed date:05/04/2024 11:35:22 PM Interpretation: Performing Lab:[facility], [address] [place] [address], Phone - [phone], Director - Arely Notes/Report: Urine Culture, Routine Final report Result 1 Culture shows less than 10,000 colony forming units of bacteria per milliliter of urine. This colony count is not generally considered to be clinically significant. PDF Report Reviewed date:05/04/2024 11:35:04 PM Interpretation: Performing Lab:[facility], [address] [place] [address], Phone - [phone], Director - Arely Notes/Report: Reason For Referral [...] 25MCG 1 ORAL daily; Durati on: -3 [facility] 06/10/2014 Active ZyrTEC Allergy 10MG [...] 50MG 1 ORAL at bedtime; Duration: -3 [facility] 06/10/2014 Active Meclizine HCl 25 MG 1 tablet as needed Orally [facility] 06/10/2014 Active Albuterol Sulfate (2.5 MG/3ML)0.083% Inhalation 4 x a day prn 06/10/2014 Active Valium 5MG 1 tablet as needed O RAL at bedtime, 1/2 tab prn during the day [facility] 06/10/2014 Active Social History Tobacco [...] Status Risk Notes Problem Postmenopausal atrophic vaginitis (N95.2) Active confirmed Problem Age-related osteoporosis (991289626) Age-related osteoporosis without current pathological fracture (M81.0) Active confirmed Problem Urgent desire to urinate (23535660) Urgency of urination (R39.15) Active confirmed Problem 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 Problem Chronic systolic heart failure (387853194) Chronic systolic (congestive) heart failure (I50.22) Active confirmed Problem Chronic obstructive pulmonary disease (46041486) Chronic obstructive pulmonary disease, unspecified (J44.9) Active confirmed Problem Functional urinary incontinence (177313528) Functional 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) Active confirmed Problem Personal history of primary malignant neoplasm of bronchus (573463487) 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) Active confirmed Vital Signs Temperature 97.7 degrees Fahrenheit 07/18/2024 Blood pressure diastolic 62 mm Hg 07/18/2024 Height 63 in 07/18/2024 Blood pressure systolic 102 mm Hg 07/18/2024 Weight 126 lbs 07/18/2024 BMI 22.32 kg/m2 07/18/2024 Encounters Encounter Location Date Provider Diagnosis Total [address] [address] 05/03/2024 Yenny Tonio Urgency of urination R39.15 and Abscess of vulva N76.[address] [address] 05/10/2024 Yenny Elizalde Abscess of vulva N76 .[address] [address] 05/17/2024 Yenny Elizalde Abscess of vulva N76 .[address] [address] 07/09/2024 Yenny Elizalde Urgency of urination R39.15 ; Acute vaginitis N76.0 and Postmenopausal atrophic vaginitis N95.[address] [address] 07/18/2024 Yenny Elizalde Encounter for screening mammogram for malignant neoplasm of breast Z12.31 and Mastodynia N64.[address] [address] 05/10/2024 Yenny Elizalde Total [address] [address] 05/13/2024 Yenny Elizalde Total [address] [place] [address] 06/11/2024 Yenny Roweueva Assessments Encounter Date Diagnosis [...] HER TO BE SEEN AND EVALUATED AT [facility]. CALLED [facility] AND DISCUSSED THIS PAT. THEY AGREED TO [...] Date MEDICARE [address] [place] NIEVES [id number] [phone] [id number] SHIRLEY, CINDA Self - patient is the insured [employer] [address] [place] [address] [id number] CINDA WATSON Self - patient is [...]
--- OUTSIDE RECORDS SUMMARY | 2025-02-10 02:14 | XMS_ITS | Clinical Summary ---
Author Organization [address] [facility] Address [address] [place] [address] Phone Care Team Providers Care Recreational Vehicle Resort Manager Name Role Phone Caitlyn Bowie MD Primary Care Provider [phone] Allergies Active Allergy Reactions Criticality Noted Date [...] 20 mg as needed by her previous take up supervisor which she has taken sporadically. I have asked her to take this daily to see if this improves her symptoms and she has a follow-up appointment with Dr. Shah on September 16 which she will keep. We also had a long conversation regarding the fact that she is seeing 3 different take up supervisor for the same problems. We informed [...] continues to see Dr. Avalos or her take up supervisor at [facility]. She verbalized understanding of this and [...] right lower leg 03/06/2019 Antiphospholipid antibody syndrome ([facility] V24) 12/24/2018 Adrenal insufficiency ([facility] V24) 08/23/2018 Allergic rhinitis 08/23/2018 Hyperparathyroidism ([facility] V24) 08/23/2018 MRSA infection 08/23/2018 Overview (05/16/2024): 06/2009, s/p thoracotomy infection Osteoarthritis 08/23/2018 Radiation-induced pulmonary fibrosis ([facility] V2 4) 11/13/2017 Bronchiectasis ([facility] V24, [facility] V28) 2017 Leg edema 08/08/2017 Restrictive lung disease 08/08/2017 Chronic obstructive pulmonar y disease ([facility] V[facility], [facility] V28) 04/13/2017 Fibromyalgia 04/13/2017 Congestive heart failure ([facility] V24, [facility] V 28) 04/04/2017 Heterozygous factor V Leiden mutation ([facility] V 24) 04/04/2017 Obstructive sleep apnea syndrome 04/04/2017 Overview (05/16/2024): CPAP Pleural effusion 04/04/2017 Pulmonary hypertension ([facility] V24, [facility] V28 ) 04/04/2017 Multiple pulmonary nodules 03/17/2017 [...] EDT - 01/19/2025 9:08 PM EDT Emergency [facility] [address] [place] [phone] Discharge Disposition: Home or Self Care 12/23/2024 9:00 AM EDT Office Visit Vascular Surgery - [place] [address] [place] [phone] Jerry Li MD Complex regional pain syndrome type 1 of both lower extremities (Primary Dx); Leg swelling 12/10/2024 2:43 PM EDT - 12/10/2024 4:57 PM EDT Emergency [facility] [address] [place] [address] Head injury, initial encounter (Primary Dx) Discharge Disposition: Home or Self Care 12/10/2024 1:30 PM EDT Office Visit [facility] [address] [place] [address] Shirley Chaidez PA White matter [...] PROCEDURE: HISTORICAL TONSILLECTOMY OTHER SURGICAL HISTORY PROCEDURE: TN RMVL LUNG XCP TOT PNEUMONECTOMY SLEEVE LOBECTOMY; [...] pathology report UPPER GASTROINTESTINAL ENDOSCOPY 05/03/2015 PROCEDURE: TN UPPER GI ENDOSCOPY PERFORMED MITRAL CLIP PROCEDURE Medical History Medical History Date Comments Akathisia 04/15/2013 DX:Akathisia Anxiety 12/07/2016 DX:Anxiety Bronchiectasis ([facility] V24, [facility] V28) 08/08/2017 DX:Bronchiectasis (HCC) Cataract 08/26/2014 DX:Cataract [...] dori pect Heterozygous factor V Leiden mutation ([facility] V24) 04/04/2017 DX:Heterozygous factor V Lei [...] syndrome 02/18/2013 DX:Postc oncussion syndrome Pulmonary hypertension ([facility] V24, [facility] V28) 04/04/2017 DX:Pulmonary hypertension (H CC) Restrictive lung disease 08/08/2017 DX:Rest rictive lung disease 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 DX:Zinc deficien cy Obstructive sleep apnea syndrome 04/04/2017 DX:Obstructive sleep apnea syndrome; COMMENT: CPAP Radiation-induced pulmonary fibrosis ([facility] V24) 11/13/2017 DX:Radiation-induced pulmona ry fibrosis (HCC) Adrenal insufficiency ([facility] V24) 08/23/2018 DX:Adrenal insufficiency (HCC) Hyperparathyroidism ([facility] V24) 08/23/2018 DX:Hyperparathyroidism (HCC) Osteoporosis 11/17/2016 [...] Mx LLL resection, Chemo, RT, Cisplatin, Vinorelbine [id number] Antiphospholipid antibody sy ndrome ([facility] V24) 12/24/2018 DX:Antiphospholipid antibody syndrome (HCC) 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 Hyperparathyroidism ([facility] V24) DX:Hyperparathyroidism (HCC) Adrenal insufficiency ([facility] V24) DX:Adrenal insufficiency (HCC) Family History [...] Description 02/21/2025 4:30 PM EDT Office Visit [facility] [address] [place] [phone] Shirley Chaidez PA [address] [place] [address] Health Maintenance Due Date Last Done Comments [...] Signed Date: 12/10/2024 16:12 ET Workstation ID: [id number] Transcribed By: Self Edit Transcribed Date: 12/10/2024 [...] Signed Date: 12/10/2024 16:12 ET Workstation ID: [id number] Transcribed By: Self Edit Transcribed Date: 12/10/2024 [...] [facility] Comment:Calculation based on the Chronic [...] 2:10 PM [facility] Blood Venous blood specimen / Unknown Venipuncture / Unknown 06/15/2024 1:26 PM EST 06/15/2024 1:32 PM EST us Jovana Cruz MD LAB BLOOD ORDERABLES Final Resul t [facility] [address] [place] [address], from Last 3 Months or Most Recently Relevant to Health Maintenance Insurance MEDICARE [employer] - [place] MEDICARE [employer]AGE Advance Directives Documents on File Type Date Recorded 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
[2025-02-10 02:25] LABS: Troponin-I High Sensitivity 21.8 ng/L (<3.5-17.0)
[2025-02-10 02:39] LABS: Alanine Aminotransferase 29 U/L (0-31); Albumin Level 3.9 g/dL (3.5-5.0); Alkaline Phosphatase 70 U/L (39-117); Anion Gap 13 (12-20); Aspartate Amino Transferase 36 U/L (5-31); Blood Urea Nitrogen 25 mg/dL (9-16); Calcium 10.0 mg/dL (8.4-10.2); Carbon Dioxide 32 mmol/L (22-29); Chloride 100 mmol/L (96-108); Creatinine Clr Calc Pharmacy 42.5; Estimated Glomerular Filt Rate > 60; Potassium 3.0 mmol/L (3.3-5.1); Sodium 142 mmol/L (135-145); Total Protein 6.7 g/dL (6.5-8.0)
[2025-02-10 02:41] LABS: Resp Syncy Virus RNA Qual PCR NEGATIVE (Negative); SARS COV2 PCR INHOUSE NEGATIVE (Negative)
--- NOTE | 2025-02-10 02:45 | PC.NURSE ---
pt states she is anxious, provider EMELIA Graves at bedside explaining treatment plan.
[2025-02-10 02:57] LABS: Magnesium 2.8 mg/dL (1.6-2.6)
[2025-02-10] MEDS: Magnesium Sulfate/H2O 2 GM/50 ML PIGGYBACK IV (03:22)
--- NOTE | 2025-02-10 03:27 | PC.NURSE ---
pt medicated per SEP. no IV Ativan, awaiting new orders.
--- NOTE | 2025-02-10 03:32 | PC.NURSE ---
pt medicated per MAR, respiratory at bedside for breathing tx.
[2025-02-10] MEDS: Albuterol Sulfate (0.083%) 2.5 MG/3 ML VIAL.NEB INHALE (03:36)
--- NOTE | 2025-02-10 03:57 | ED_ITS ---
HPI - Chest Pain General Chief Complaint: Chest Pain Stated Complaint: SOB L Chest Pain / shoulder Time Seen by Provider: 02/10/25 02:40 Source: patient Limitations: no limitations History of Present Illness ED Provider: Ludy Mendoza PA-C HPI narrative: 79-year-old female with a history of CAD s/p NSTEMI, HFpEF, hx of SAH, chronic hypoxic and hypercapneic respiratory failure due to COPD, Pul HTN on 2L home O2 , KANDY on BiPAP at night, hx of non-small cell lung cancer s/p chemo, radiation, and left upper lobe lobectomy, antiphospholipid antibody syndrome, hx of DVT/PE on Coumadin, adrenal insufficiency on chronic daily steroid use, and anxiety presents with worsening shortness of breath since this afternoon. Patient states her chest feels heavy, and her shortness of breath has progressed. She states she has used her home nebulizer treatment without relief from symptoms. Associated recent barking cough of unclear duration, however denies fevers. Denies sick contacts with similar symptoms. Patient is on her baseline oxygen requirement. Related Data Home Medications ?Medication ?Instructions ?Recorded ?Confirmed CPAP (CPAP Machine/Device) 06/30/22 11/11/24 Oxygen Home Use 06/30/22 11/11/24 nebulizers 06/30/22 11/11/24 epinephrine 0.3 mg/0.3 mL 0.3 mg IM USEASDIRECTD PRN 0 07/14/22 01/16/25 injection, auto-injector Allergic Reaction levothyroxine 25 mcg tablet 50 mcg PO SUSA@0600 01/16/25 (Synthroid) docusate sodium 100 mg capsule 100 mg PO BID 01/14/24 01/16/25 diazepam 5 mg tablet 2.5 mg PO BID PRN anxiety 01/16/25 chlorhexidine gluconate 0.12 % 10 ml PO BID 01/16/25 0 01/16/25 mouthwash ferrous gluconate 324 mg (38 mg 324 mg PO QAM 01/16/25 01/16/25 iron) tablet folic acid 1 mg tablet 1 mg PO DAILY 01/16/2501/16 levothyroxine 25 mcg tablet 25 mcg PO MOTUWETHFR@0600 01/16/25 01/16/25 (Synthroid) rosuvastatin 10 mg tablet 10 mg PO MOWEFR@2100 5 01/16/25 warfarin 1 mg tablet (Jantoven) mg PO DAILY 01/16/25 potassium chloride 20 mEq oral 40 meq PO DAILY 5 packet Previous Rx's ?Medication ?Instructions ?Recorded simethicone 80 mg chewable tablet 80 mg PO QIDWMHS #20 tabs 02/04/24 (Gas Relief (simethicone)) Advair HFA 230 mcg-21 2 puff inhalation BID 90 day s #36 03/13/24 mcg/actuation aerosol inhaler grams (fluticasone propion-salmeterol) furosemide 40 mg tablet 80 mg (2 x 40 mg) PO BID #36 0 tabs 05/01/24 metoprolol succinate 50 mg 50 mg PO BID #180 tabs 08/02 tablet,extended release 24 hr (Toprol XL) levocetirizine 5 mg tablet 5 mg PO DAILY 90 days #90 t abs 05/23/24 trazodone 50 mg tablet 100 mg (2 x 50 mg) PO BEDTIM E #180 07/01/24 tabs meclizine 25 mg tablet 25 mg PO Q8H PRN dizziness 1 0 days 07/22/24 #30 tabs montelukast 10 mg tablet 10 mg PO DAILY #90 tabs 08/10 12/01 albuterol sulfate 90 mcg/actuation 2 inh inhalation Q6 H PRN shortness 11/05/24 aerosol inhaler of breath or wheezing 90 day s #3 ea fluticasone propionate 50 2 spray intranasal DAILY 90 days 11/05/24 mcg/actuation nasal #3 ea spray,suspension aspirin 81 mg tablet 81 mg PO DAILY #30 tabs 01/07 nitroglycerin 0.4 mg sublingual 0.4 mg sublingual Q5MX 3 PRN Chest 01/16/25 tablet (Nitrostat) Pain 30 days #30 tabs cefuroxime axetil 250 mg tablet 250 mg PO Q12H 5 days #10 tabs 02/10/25 doxycycline monohydrate 100 mg 100 mg PO BID 5 days #1 0 caps 02/10/25 capsule Allergies Allergy/AdvReac Type Severity Reaction Status Date / Time morphine Allergy Severe Itching Verified 02/10/25 01:49 avocado (AVOCADO) Allergy Mild ITCHY Verified 02/10/25 01:49 THROAT, RASH azithromycin (AZITHROMYCIN) Allergy Mild ITCHY Verified 02/10/25 01:49 THROAT, RASH barium iodide (BARIUM IODIDE) Allergy Mild ITCHY Verified 02/10/25 01:49 THROAT, RASH barium sulfate Allergy Mild Itch Verified 02/10/25 01:49 bee pollen (BEE STINGS) Allergy Mild ITCHY Verified 02/10/25 01:49 THROAT, RASH ciprofloxacin (From CIPRO) Allergy Mild ITCHY Verified 02/10/25 01:49 THROAT, RASH clarithromycin (From BIAXIN) Allergy Mild ITCHY Verified 02/10/25 01:49 THROAT, RASH diatrizoate meglumine (From Allergy Mild ITCHY Verified 02/10/25 01:49 GASTROGRAFIN) THROAT, RASH diatrizoate sodium (From Allergy Mild ITCHY Verified 02/10/25 01:49 GASTROGRAFIN) THROAT, RASH diclofenac (From VOLTAREN) Allergy Mild ITCHY Verified 02/10/25 01:49 THROAT, RASH erythromycin base Allergy Mild ITCHY Verified 02/10/25 01:49 (ERYTHROMYCIN BASE) THROAT, RASH gentamicin (GENTAMICIN) Allergy Mild ITCHY Verified 02/10/25 01:49 THROAT, RASH Iodinated Contrast Media Allergy Mild ITCHY Verified 02/10/25 01:49 (IVP DYE) THROAT, RASH levofloxacin (From LEVAQUIN) Allergy Mild ITCHY Verified 02/10/25 01:49 THROAT, RASH metronidazole (From FLAGYL) Allergy Mild ITCHY Verified 02/10/25 01:49 THROAT, RASH moxifloxacin (From AVELOX) Allergy Mild ITCHY Verified 02/10/25 01:49 THROAT, RASH Penicillins (PENICILLINS) Allergy Mild ITCHY Verified 02/10/25 01:49 THROAT, RASH shrimp (SHRIMP) Allergy Mild ITCHY Verified 02/10/25 01:49 THROAT, RASH Sulfa (Sulfonamide Allergy Mild ITCHY Verified 02/10/25 01:49 Antibiotics) (SULFA THROAT, (SULFONAMIDE ANTIBIOTICS)) RASH vancomycin (VANCOMYCIN) Allergy Mild ITCHY Verified 02/10/25 01:49 THROAT, RASH clindamycin AdvReac Intermediate Unknown Verified 02/10/25 01:49 [facility] Past Medical History Medical History Chest pain Chest pain Ankle pain Chronic hypercapnic respiratory failure KANDY treated with BiPAP COPD (chronic obstructive pulmonary disease) Open wound Warfarin anticoagulation Complex sleep apnea syndrome Leg pain Anemia Tachycardia DVT (deep venous thrombosis) Compression fracture of body of thoracic vertebra ASD (atrial septal defect) Pleuritic chest pain History of COVID-19 Chronic anticoagulation Hypothyroidism GERD (gastroesophageal reflux disease) Hyperlipidemia Hypertension Factor 5 Leiden mutation, heterozygous History of non-ST elevation myocardial infarction (NSTEMI) Hypoxia Anxiety PTSD (post-traumatic stress disorder) Hemoptysis Dyspnea Tracheobronchitis CLARA positive Diverticulitis Allergic bronchitis (HFpEF) heart failure with preserved ejection fraction Subarachnoid bleed Insomnia Anti-phospholipid antibody syndrome Hypogammaglobulinemia Chronic respiratory failure Arterial insufficiency of lower extremity Complex regional pain syndrome i of right lower limb Post herpetic neuralgia Pulmonary hypertension Pericardial effusion Pulmonary emboli Pleural effusion Radiation fibrosis of lung Pneumonitis Pulmonary nodules Lung cancer Surgical History History of colonoscopy History of lung surgery History of tonsillectomy History of hysterectomy S/P mitral valve clip implantation History of cardiac cath Family History Family History Sister No problems noted. Mother Cardiovascular disease Daughter Tachycardia Other KANDY (obstructive sleep apnea) Social History Social History Household Members: Other Housing: Detention Do you presently have visiting nurse or other home services: Yes (at home had C[employer]IED REHABILITATION COUNSELOR that came to visit her) Unable to assess alcohol history related to: Unknown Alcohol intake: never Comment: stand by assist with ambulation Patient Tobacco Use Status: Never used Tobacco Smoked in Last 30 Days: No Second Hand Smoke Exposure: No Use of substances other than those prescribed or required for medical reasons: No Advance Directives: Yes Advance Directives on File: Yes Advance Directives Date on File: 06/15/22 service: No Current occupational status: retired Physical Exam 2 Vital Signs: Vital Signs: Last Vital Signs Temp 98.7 F 02/10/25 07:59 Pulse 74 02/10/25 07:59 Resp 20 02/10/25 07:59 BP 108/45 L 02/10/25 07:59 Pulse Ox 99 02/10/25 07:59 O2 Del Method Nasal Cannula 02/10/25 07:59 O2 Flow Rate 2 02/10/25 07:59 Oxygen Flow Rate 2 02/10/25 01:46 BMI result Body Mass Index 24.2 Course Course Course Narrative: Signed out to night team pending chest x-ray, delta troponin, completion of COPD treatment, ambulation trial and final disposition Reevaluation(s) Reevaluation #1: Patient improving after IV antibiotics. Clinical picture consistent with croup and COPD exacerbation. Chest x-ray is not consistent with pneumonia. Second cardiac enzyme is flat. Patient is currently pain-free. Discharging home with prescriptions for antibiotics. Discussed return precautions at length as well as importance of follow-up with pulmonology. Using shared decision making, plan for discharge home to follow-up with primary care and/or specialist. Patient understands and agrees with plan for discharge. Discharged home in stable condition. Time: 06:16 Medications Administered Discontinued Medications Generic Name Dose Route Start Last Admin Trade Name Freq PRN Reason Stop Dose Admin Albuterol Sulfate 2.5 mg 02/10/25 03:34 02/10/25 03:36 Albuterol Sulfate (0.083%) 2.5 Mg/3 Ml Vial.Neb INHALE 02/10/25 03:35 2.5 mg ONCE ONE Administration Ceftriaxone Sodium 2 gm 02/10/25 02:48 02/10/25 03:19 Ceftriaxone Sodium 2 Gm Vial IVPUSH 02/10/25 02:49 2 gm ONCE ONE Administration Magnesium Sulfate 2 gm in 50 mls @ 25 mls/hr 02/10/25 02:48 02/10/25 05:29 Magnesium Sulfate/H2o IV 02/10/25 04:47 Infused ONCE ONE Infusion Sodium Chloride 500 mls @ 500 mls/hr 02/10/25 02:48 02/10/25 05:00 Ns IV 02/10/25 03:47 Infused .Q1H ONE Infusion Doxycycline Hyclate 100 mg/ 250 mls @ 166.67 mls/hr 02/10/25 02:53 02/10/25 05:00 Sodium Chloride IV 02/10/25 04:22 Infused ONCE ONE Infusion Lorazepam 0.5 mg 02/10/25 02:48 02/10/25 03:20 Lorazepam 2 Mg/Ml Vial IVPUSH 02/10/25 02:49 Not Given ONCE ONE Lorazepam 0.5 mg 02/10/25 03:27 02/10/25 03:31 Lorazepam 0.5 Mg Tablet PO 02/10/25 03:28 0.5 mg ONCE ONE Administration Methylprednisolone Sodium Succinate 125 mg 02/10/25 02:48 02/10/25 03:23 Methylprednisolone Sod Succ 125 Mg/2 Ml Vial IVPUSH 02/10/25 02:49 125 mg ONCE ONE Administration Potassium Chloride 40 meq 02/10/25 04:09 02/10/25 05:16 Potassium Chloride Er 20 Meq Tab.Er.Prt PO 02/10/25 04:10 Not Given ONCE ONE Medical Decision Making Medical Decision Making MDM Narrative: 79-year-old female with a history of CAD s/p NSTEMI, HFpEF, hx of SAH, chronic hypoxic and hypercapneic respiratory failure due to COPD, Pul HTN on 2L home O2 , KANDY on BiPAP at night, hx of non-small cell lung cancer s/p chemo, radiation, and left upper lobe lobectomy, antiphospholipid antibody syndrome, hx of DVT/PE on Coumadin, and anxiety presents with worsening shortness of breath since this afternoon. Patient states her chest feels heavy, and her shortness of breath has progressed. She states she has used her home nebulizer treatment without relief from symptoms. Associated recent barking cough of unclear duration, however denies fevers. Denies sick contacts with similar symptoms. Patient is on her baseline oxygen requirement. Problem: Coronary artery disease, COPD, PE, pulmonary hypertension, anxiety History: Per patient I have considered the following differential diagnoses: COPD exacerbation, pneumonia, bronchitis, viral syndrome, ACS, new heart failure, Plan: Patient is here with mild COPD symptoms, she is on her baseline oxygen requirement, she only has scattered expiratory wheezes with good air movement on exam. I do believe her anxiety got the better of her overnight. In addition to screening labs, per our protocol, we will order blood cultures, lactic, giving a 500 mL fluid bolus, giving ceftriaxone and doxycycline, secondary to her allergy profile. We will be giving a breathing treatment, Solu-Medrol and magnesium. ACS was considered, the patient does have known coronary artery disease, troponin EKG, cxr obtained. Do not think this is new heart failure, she has had echoes in the past she has preserved ejection fraction, she also does not appear volume overloaded on exam, she is not overtly hypertensive. I have independently reviewed the following tests: Labs: Leukocytosis of 14, however the patient is on chronic steroid therapy, not anemic, mild hypokalemia at 3, no additional electrolyte abnormalities, troponin 21.8 EKG: Normal sinus rhythm rate 89, right bundle branch block, left anterior fascicular block, again noted, no active ischemic changes, no change from recent steady January 15, 2025 Chest x-ray: My independent interpretation of the chest x-ray reveals no consolidations, pulmonary edema, pleural effusion, pneumothorax, obvious bony abnormalities. Lab Data 02/10/25 01:56 02/10/25 02:21 Labs: Lab Results 02/10/25 02/10/25 02/10/25 Range/Units 01:56 02:21 03:11 WBC 14.1 H (4.8-10.8) X10*3/uL RBC 3.55 L (4.20-5.50) X10*6/uL Hgb 11.8 L (12.0-16.0) g/dl Hct 34.9 L (37.0-47.0) % MCV 98.3 H (80.0-98.0) fL MCH 33.2 H (27.0-33.0) pg MCHC 33.8 (31.0-35.0) g/dl RDW 14.4 (11.0-16.0) % Plt Count 198 (160-400) X10*3/uL MPV 11.8 (9.4-12.3) fL Immature Gran % (Auto) 0.8 H (0.0-0.4) % Neut % (Auto) 77.5 H (45-73) % Lymph % (Auto) 11.3 L (20-40) % Winkler % (Auto) 9.2 (2-11) % Eos % (Auto) 0.6 (0-4) % Baso % (Auto) 0.6 (0-2) % Lymph # (Auto) 1.6 (1.2-4.9) X10*3/uL Winkler # (Auto) 1.3 H (0.1-1.2) X10*3/uL Eos # (Auto) 0.1 (0.0-0.4) X10*3/uL Baso # (Auto) 0.1 (0.0-0.2) X10*3/uL Abs Immat Gran (auto) 0.11 H (0.00-0.03) X10*3/uL Absolute Neuts (auto) 11.0 H (2.0-8.3) x10*3/uL Absolute Nucleated RBC 0.000 (0.0-0.012) X10*3/uL Nucleated RBC % (auto) 0.0 (0.0-0.2) /100WBC Sodium 142 (135-145) mmol/L Potassium 3.0 L (3.3-5.1) mmol/L Chloride 100 (96-108) mmol/L Carbon Dioxide 32 H (22-29) mmol/L Anion Gap 13 (12-20) BUN 25 H (9-16) mg/dL Creatinine 0.82 (0.5-1.4) mg/dL Estim Creat Clear Calc 42.5 Estimated GFR > 60 Random Glucose 115 (60-115) mg/dL Lactic Acid 1.1 (0.5-2.0) mmol/L Calcium 10.0 (8.4-10.2) mg/dL Magnesium 2.8 H (1.6-2.6) mg/dL Total Bilirubin 0.4 (0.0-1.0) mg/dL AST 36 H (5-31) U/L ALT 29 (0-31) U/L Alkaline Phosphatase 70 (39-117) U/L Troponin I High Sens 21.8 H (<3.5-17.0) ng/L Total Protein 6.7 (6.5-8.0) g/dL Albumin 3.9 (3.5-5.0) g/dL Influenza Type A (PCR) NEGATIVE (Negative) Influenza Type B (PCR) NEGATIVE (Negative) RSV RNA Qual (PCR) NEGATIVE (Negative) SARS-CoV-2 RNA (RT-PCR) NEGATIVE (Negative) 02/10/25 Range/Units 05:14 WBC (4.8-10.8) X10*3/uL RBC (4.20-5.50) X10*6/uL Hgb (12.0-16.0) g/dl Hct (37.0-47.0) % MCV (80.0-98.0) fL MCH (27.0-33.0) pg MCHC (31.0-35.0) g/dl RDW (11.0-16.0) % Plt Count (160-400) X10*3/uL MPV (9.4-12.3) fL Immature Gran % (Auto) (0.0-0.4) % Neut % (Auto) (45-73) % Lymph % (Auto) (20-40) % Winkler % (Auto) (2-11) % Eos % (Auto) (0-4) % Baso % (Auto) (0-2) % Lymph # (Auto) (1.2-4.9) X10*3/uL Winkler # (Auto) (0.1-1.2) X10*3/uL Eos # (Auto) (0.0-0.4) X10*3/uL Baso # (Auto) (0.0-0.2) X10*3/uL Abs Immat Gran (auto) (0.00-0.03) X10*3/uL Absolute Neuts (auto) (2.0-8.3) x10*3/uL Absolute Nucleated RBC (0.0-0.012) X10*3/uL Nucleated RBC % (auto) (0.0-0.2) /100WBC Sodium (135-145) mmol/L Potassium (3.3-5.1) mmol/L Chloride (96-108) mmol/L Carbon Dioxide (22-29) mmol/L Anion Gap (12-20) BUN (9-16) mg/dL Creatinine (0.5-1.4) mg/dL Estim Creat Clear Calc Estimated GFR Random Glucose (60-115) mg/dL Lactic Acid (0.5-2.0) mmol/L Calcium (8.4-10.2) mg/dL Magnesium (1.6-2.6) mg/dL Total Bilirubin (0.0-1.0) mg/dL AST (5-31) U/L ALT (0-31) U/L Alkaline Phosphatase (39-117) U/L Troponin I High Sens 29.4 H (<3.5-17.0) ng/L Total Protein (6.5-8.0) g/dL Albumin (3.5-5.0) g/dL Influenza Type A (PCR) (Negative) Influenza Type B (PCR) (Negative) RSV RNA Qual (PCR) (Negative) SARS-CoV-2 RNA (RT-PCR) (Negative) Discharge Plan Discharge Clinical Impression: Croupous bronchitis, Acute exacerbation of chronic obstructive pulmonary disease Patient Disposition: Home, Self-Care Instructions: Bronchospasm (ED), Croup (ED) Additional Instructions: Take your antibiotic as prescribed until the course is completed. Do not stop this medication early if you start to feel better. Use your albuterol inhaler as needed for coughing fits. Use a tbsp of honey for painful cough. Return to the emergency department with any new or worsening symptoms including: Worsening chest pain, difficulty breathing, fevers greater than 100?, changes in your sputum color, any new symptom that concerns you. Call 911 with any medical emergency. Prescriptions: New cefuroxime axetil 250 mg tablet 250 mg PO Q12H 5 Days Qty: 10 0RF doxycycline monohydrate 100 mg capsule 100 mg PO BID 5 Days Qty: 10 0RF No Action Advair HFA 230-21 mcg/actuation HFA aerosol inhaler 2 puff inhalation BID 90 Days Qty: 36 4RF furosemide 40 mg tablet 80 mg PO BID Qty: 360 3RF metoprolol succinate [Toprol XL] 50 mg tablet extended release 24 hr 50 mg PO BID Qty: 180 3RF levocetirizine 5 mg tablet 5 mg PO DAILY 90 Days Qty: 90 3RF trazodone 50 mg tablet 100 mg PO BEDTIME Qty: 180 3RF meclizine 25 mg tablet 25 mg PO Q8H PRN (Reason: dizziness) 10 Days Qty: 30 0RF montelukast 10 mg tablet 10 mg PO DAILY Qty: 90 3RF albuterol sulfate 90 mcg/actuation HFA aerosol inhaler 2 inh inhalation Q6H PRN (Reason: shortness of breath or wheezing) 90 Days Qty: 3 3RF fluticasone propionate 50 mcg/actuation spray,suspension 2 spray intranasal DAILY 90 Days Qty: 3 3RF potassium chloride 20 mEq packet 40 meq PO DAILY levothyroxine [Synthroid] 25 mcg Tablet 50 mcg PO SUSA@0600 docusate sodium 100 mg Capsule 100 mg PO BID simethicone [Gas Relief (simethicone)] 80 mg Tablet,Chewable 80 mg PO QIDWMHS Qty: 20 0RF levothyroxine [Synthroid] 25 mcg tablet 25 mcg PO MOTUWETHFR@0600 folic acid 1 mg tablet 1 mg PO DAILY chlorhexidine gluconate 0.12 % mouthwash 10 ml PO BID rosuvastatin 10 mg tablet 10 mg PO MOWEFR@2100 warfarin [Jantoven] 1 mg tablet PO DAILY ferrous gluconate 324 mg (38 mg iron) tablet 324 mg PO QAM nitroglycerin [Nitrostat] 0.4 mg Tablet, Sublingual 0.4 mg sublingual Q5MX3 PRN (Reason: Chest Pain) 30 Days Qty: 30 0RF aspirin 81 mg tablet 81 mg PO DAILY Qty: 30 3RF (DME) nebulizers Misc See Rx Instructions .Route Rx Instructions: As directed (DME) CPAP Machine/Device Device See Rx Instructions .Route Rx Instructions: As directed (DME) Oxygen Home Use Kit See Rx Instructions .Route Rx Instructions: As directed epinephrine 0.3 mg/0.3 mL auto-injector 0.3 mg IM USEASDIRECTD PRN (Reason: Allergic Reaction) diazepam 5 mg tablet 2.5 mg PO BID PRN (Reason: anxiety) Interventions: ED Discharge Assessment Last Done: 02/10/25 07:59 Discharge Date/Time: 02/10/25 07:59 Print Language: Monegasque
--- NOTE | 2025-02-10 05:19 | PC.NURSE ---
pt refused her PO potassium stating the pills are too big for her to swallow. Provider Cullen advised.
[2025-02-10 05:37] LABS: Troponin-I High Sensitivity 29.4 ng/L (<3.5-17.0)
== END 2025-02-10 07:59 | disposition home or self-care (01) ==
PROVIDERS: Physician Assistant Medical; Emergency Provider Emergency Medicine
DX: J20.9 Acute bronchitis, unspecified (principal); J44.1 Chronic obstructive pulmonary disease with (acute) exacerbation; J96.92 Respiratory failure, unspecified with hypercapnia; Z99.81 Dependence on supplemental oxygen; G47.33 Obstructive sleep apnea (adult) (pediatric); Z86.718 Personal history of other venous thrombosis and embolism; Z79.01 Long term (current) use of anticoagulants
CPT/HCPCS: 36415; 71045; 80053; 83605; 83735; 84484; 85025; 87040; 87637; 93005; 94640; 96361; 96374; 96375; 99285; J0696; J1271; J2919; J3475

== ENCOUNTER → 2025-02-10 01:45 | Outpatient (BNV) | payer MEDICARE, SELFPAY | PROVIDERS: Emergency Provider Emergency Medicine; Visit Provider Internal Medicine | DX: I45.10 Unspecified right bundle-branch block (principal); I45.2 Bifascicular block | CPT/HCPCS: 93010 ==

== ENCOUNTER 2025-02-14 09:21 | Outpatient (REF) | payer MEDICARE, SELFPAY ==
--- OUTSIDE RECORDS SUMMARY | 2025-02-14 09:29 | XMS_ITS | Clinical Summary ---
Author Organization [facility] Address [address] [place] [address] Phone Care Team Providers Care Assembler Sandal Parts Name Role Phone Caitlyn Bowie MD Primary Care Provider +1- [phone] Allergies Active Allergy Reactions Criticality Noted Date [...] 20 mg as needed by her previous ditching machine engineer which she has taken sporadically. I have asked her to take this daily to see if this improves her symptoms and she has a follow-up appointment with Dr. Shah on September 16 which she will keep. We also had a long conversation regarding the fact that she is seeing 3 different ditching machine engineer for the same problems. We informed her [...] continues to see Dr. Avalos or her ditching machine engineer at [facility]. She verbalized understanding of this and [...] right lower leg 03/06/2019 Antiphospholipid antibody syndrome ([facility] V24) 12/24/2018 Adrenal insufficiency ([facility] V24) 08/23/2018 Allergic rhinitis 08/23/2018 Hyperparathyroidism ([facility] V24) 08/23/2018 MRSA infection 08/23/2018 Overview (05/16/2024): 06/2009, s/p thoracotomy infection Osteoarthritis 08/23/2018 Radiation-induced pulmonary fibrosis ([facility] V2 4) 11/13/2017 Bronchiectasis ([facility] V24, [facility] V[facility]) 2017 Leg edema 08/08/2017 Restrictive lung disease 08/08/2017 Chronic obstructive pulmonar y disease ([facility] V[facility], [facility] V28) 04/13/2017 Fibromyalgia 04/13/2017 Congestive heart failure ([facility] V[facility], [facility] V 28) 04/04/2017 Heterozygous factor V Leiden mutation ([facility] V 24) 04/04/2017 Obstructive sleep apnea syndrome 04/04/2017 Overview (05/16/2024): CPAP Pleural effusion 04/04/2017 Pulmonary hypertension ([facility] V[facility], [facility] V28 ) 04/04/2017 Multiple pulmonary nodules 03/17/2017 [...] EDT - 01/19/2025 9:08 PM EDT Emergency [facility] Emergency [address] [place] [phone] Discharge Disposition: Home or Self Care 12/23/2024 9:00 AM EDT Office Visit Vascular Surgery - [place] [address] [place] [phone] Jerry Li MD Complex regional pain syndrome type 1 of both lower extremities (Primary Dx); Leg swelling 12/10/2024 2:43 PM EDT - 12/10/2024 4:57 PM EDT Emergency [facility] Emergency [address] [place] [address] Head injury, initial encounter (Primary Dx) Discharge Disposition: Home or Self Care 12/10/2024 1:30 PM EDT Office Visit [facility] [address] [facility] [address] [place] [address] Shirley Chaidez PA White matter [...] PROCEDURE: HISTORICAL TONSILLECTOMY OTHER SURGICAL HISTORY PROCEDURE: DC RMVL LUNG [...] pathology report UPPER GASTROINTESTINAL ENDOSCOPY 05/03/2015 PROCEDURE: DC UPPER GI ENDOSCOPY PERFORMED MITRAL CLIP PROCEDURE Medical History Medical History Date Comments Akathisia 04/15/2013 DX:Akathisia Anxiety 12/07/2016 DX:Anxiety Bronchiectasis ([facility] V24, [facility] V28) 08/08/2017 DX:Bronchiectasis (HCC) Cataract 08/26/2014 DX:Cataract [...] dori pect Heterozygous factor V Leiden mutation ([facility] V24) 04/04/2017 DX:Heterozygous factor V Lei den [...] syndrome 02/18/2013 DX:Postc oncussion syndrome Pulmonary hypertension ([facility] V24, [facility] V28) 04/04/2017 DX:Pulmonary hypertension (H CC) Restrictive lung disease 08/08/2017 DX:Rest rictive lung disease 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 DX:Zinc deficien cy Obstructive sleep apnea syndrome 04/04/2017 DX:Obstructive sleep apnea syndrome; COMMENT: CPAP Radiation-induced pulmonary fibrosis ([facility] V24) 11/13/2017 DX:Radiation-induced pulmona ry fibrosis (HCC) Adrenal insufficiency ([facility] V24) 08/23/2018 DX:Adrenal insufficiency (HCC) Hyperparathyroidism ([facility] V24) 08/23/2018 DX:Hyperparathyroidism (HCC) Osteoporosis 11/17/2016 DX:Osteoporosis [...] Mx LLL resection, Chemo, RT, Cisplatin, Vinorelbine [id number] Antiphospholipid antibody sy ndrome ([facility] V24) 12/24/2018 DX:Antiphospholipid antibody syndrome (HCC) 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 Hyperparathyroidism ([facility] V24) DX:Hyperparathyroidism (HCC) Adrenal insufficiency ([facility] V24) DX:Adrenal insufficiency (HCC) Family History Medical [...] Description 02/21/2025 4:30 PM EDT Office Visit [facility] [address] [place] [phone] Shirley Chaidez PA [address] [place] [address] Health Maintenance Due Date Last Done Comments [...] Signed Date: 12/10/2024 16:12 ET Workstation ID: [id number] Transcribed By: Self Edit Transcribed Date: 12/10/2024 [...] Signed Date: 12/10/2024 16:12 ET Workstation ID: [id number] Transcribed By: Self Edit Transcribed Date: 12/10/2024 16:10 ET Kelly KAPOOR IM CT PROCEDURES Final Resul t * (ABNORMAL) Comprehensive metabolic panel (06/15/2024 1:26 PM EST) Sodium 140 133 - 145 mmol/L LAB CHEMISTRY METHOD 06/15/2024 2:[address] [facility] Potassium 4.7 3.5 - 5.5 mmol/L LAB CHEMISTRY METHOD 06/15/2024 2:[address] [facility] Chloride 102 96 - 110 mmol/L LAB CHEMISTRY METHOD 06/15/2024 2:[address] [facility] CO2 34(H) 21 - 32 mmol/L LAB CHEMISTRY METHOD 06/15/2024 2:[address] [facility] Anion Gap 4 3 - 11 LAB CHEMISTRY METHOD 06/15/2024 2:[address] [facility] Glucose 95 70 - 100 mg/dL LAB CHEMISTRY METHOD 06/15/2024 2:[address] [facility] BUN 29(H) 5 - 25 mg/dL LAB CHEMISTRY METHOD 06/15/2024 2:[address] [facility] Creatinine 0.95 0.50 - 1.10 mg/dL LAB CHEMISTRY METHOD 06/15/2024 2:[address] [facility] eGFR 60 >=60 mL/min/1. 73m2 LAB CHEMISTRY METHOD 06/15/2024 2:[address] [facility] Comment:Calculation based on the Chronic Kidney Disease Epidemiology Collaboration (CKD-EPI) equation refit without adjustment for race. BUN/Creatinine Ratio 30.5 LAB CHEMISTRY METHOD 06/15/2024 2:[address] [facility] Calcium 10.1 8.5 - 10.5 mg/dL LAB CHEMISTRY METHOD 06/15/2024 2:[address] [facility] AST (SGOT) 35 10 - 42 unit/L LAB CHEMISTRY METHOD 06/15/2024 2:[address] [facility] ALT (SGPT) 39 10 - 60 unit/L LAB CHEMISTRY METHOD 06/15/2024 2:[address] [facility] Alkaline Phosphatase 83 42 - 121 unit/L LAB CHEMISTRY METHOD 06/15/2024 2:[address] [facility] Total Protein 6.4 6.0 - 8.0 g/dL LAB CHEMISTRY METHOD 06/15/2024 2:[address] [facility] Albumin 3.3 3.2 - 5.0 g/dL LAB CHEMISTRY METHOD 06/15/2024 2:[address] [facility] Total Bilirubin 0.4 0.0 - 1.4 mg/dL LAB CHEMISTRY METHOD 06/15/2024 2:[address] [facility] Blood Venous blood specimen / Unknown Venipuncture / Unknown 06/15/2024 1:26 PM EST 06/15/2024 1:32 PM EST us Jovana Cruz MD LAB BLOOD ORDERABLES Final Resul t [facility] [address] [place] [address], from Last 3 Months or Most Recently Relevant to Health Maintenance Insurance MEDICARE [facility] Advance Directives Documents on File Type Date Recorded Patient Food And Beverage Lead Expl anation Health Care Decision (hx) [...] (hx) 10/04/2013 AD LACEY DIRECTIVE Care Teams Assembler Sandal Parts Relationship Specialty Start Date End Date Caitlyn Bowie MD [address] [place] [id number] PCP - General Internal Medicine 12/10/24
--- OUTSIDE RECORDS SUMMARY | 2025-02-14 09:29 | XMS_ITS | Patient Health Record ---
Author Organization [facility] Address [address] [place] [address] Care Team Providers Care Automatic Fabric Cutter Name Role Phone Shruti Bowieberly Primary Care Provider Cristian Fountain Unavailable [phone] Allergies Allergen (clinical drug ingredient) Drug/Non Drug [...] Status W/U Status Risk Notes Problem Diverticulitis (275366646) Diverticulitis (K57.92) Active confirmed Problem Irritable bowel syndrome characterized by constipation (857503066) Irritable bowel syndrome with constipation (K58.9) Active confirmed Problem Gastroesophageal reflux disease (870452577) GERD (gastroesophageal reflux disease) (K21.9) Active confirmed Plan Of Treatment No Information Insurance Providers Payer Name Payer Address Payer Phone Subscriber Number Group Number Insured Name Patient Relationship to Insured Coverage Start Date Coverage End Date MEDICARE OF [place] [address] [place] [address] [id number] CINDA WATSON Self - patient is the insured MED[employer] ATTN CLAIMS [address] [place] [address] [id number] CINDA WATSON Self - patient is the insured Medical (General) History Medical History History ICD Code [place]-04/2021-sees Dr. 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 Gomes Pneumomias Hypothyroidism Surgical History Surgery Date(Month/Year) Tonsils and adenoids BOLA Lung cancer-Left lower lobectomy at [facility], XRT, Chemo 2008
--- OUTSIDE RECORDS SUMMARY | 2025-02-14 09:29 | XMS_ITS | Encounter Summary ---
Author Organization [facility] Address [address] [place] [address] Phone Care Team Providers Care Guest Services Name Role Phone Caitlyn Bowie MD Primary Care Provider +1- [phone] Encounter Details Date Type Department Care Team (Late Contact Info) Description 12/10/2024 Documentation Only [facility] [address] [place] [address] Marina Abdi [address] [place] [address] Social History Tobacco Use Types [...] Visit [facility] [address] [place] [address] Rubén Ashraf MD [address] [place] [address] [place] [address] documented as of this encounter Visit Diagnoses Not on filedocumented in this encounter Care Teams Guest Services Relationship Specialty Start Date End Date Caitlyn Bowie MD [address] [place], [place] PCP - General Internal Medicine 09/24/24 documented as of this encounter
--- OUTSIDE RECORDS SUMMARY | 2025-02-14 09:29 | XMS_ITS | Patient Health Record ---
Author Organization [facility] Address [address] [facility] [address] [place] [address] Care Team Providers Care Director Information Security Name Role Phone EVELIN RAMSAY Primary Care Provider Yenny Hou Unavailable [phone] Allergies Allergen (clinical drug ingredient) Drug/Non Drug [...] 11:35:04 PM Interpretation: Performing Lab:[facility], [address] [facility], Phone - [phone], Director - Arely Notes/Report: Urine Culture, Routine-[id number] Reviewed date:05/04/2024 11:35:22 PM Interpretation: Performing Lab:[facility], [address] [facility], [place], Phone - [phone], Director - Arely Notes/Report: Urine Culture, Routine Final report Result 1 Culture shows less than 10,000 colony forming units of bacteria per milliliter of urine. This colony count is not generally considered to be clinically significant. Urinalysis, Complete-[id number] Reviewed date:05/04/2024 11:35:42 PM Interpretation: Performing Lab:[facility], [address], [place], Phone - [phone], Director - Arely Notes/Report: Specific [place] 1.009 1.005-1.030 pH 6.5 5.0-7.5 Urine-Color Yellow [...] 25MCG 1 ORAL daily; Durati on: -3 [facility] 06/10/2014 Active ZyrTEC Allergy 10MG 1 ORAL [...] 50MG 1 ORAL at bedtime; Duration: -3 [facility] 06/10/2014 Active Meclizine HCl 25 MG 1 tablet as needed Orally [facility] 06/10/2014 Active Albuterol Sulfate (2.5 MG/3ML)0.083% Inhalation 4 x a day prn 06/10/2014 Active Valium 5MG 1 tablet as needed O RAL at bedtime, 1/2 tab prn during the day [facility] 06/10/2014 Active Social History Tobacco Use: Social [...] Status Risk Notes Problem Postmenopausal atrophic vaginitis (78728403) Postmenopausal atrophic vaginitis (N95.2) Active confirmed Problem Age-related osteoporosis (778553568) Age-related osteoporosis without current pathological fracture (M81.0) Active confirmed Problem Urgent desire to urinate (43679373) Urgency of urination (R39.15) Active confirmed Problem 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 Problem Chronic systolic heart failure (829773776) Chronic systolic (congestive) heart failure (I50.22) Active confirmed Problem Chronic obstructive pulmonary disease (95787874) Chronic obstructive pulmonary disease, unspecified (J44.9) Active confirmed Problem Functional urinary incontinence (503720328) Functional 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) Active confirmed Problem Personal history of primary malignant neoplasm of bronchus (962335506) 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) Active confirmed Vital Signs Temperature 97.7 degrees Fahrenheit 07/18/2024 Blood pressure diastolic 62 mm Hg 07/18/2024 Height 63 in 07/18/2024 Blood pressure systolic 102 mm Hg 07/18/2024 Weight 126 lbs 07/18/2024 BMI 22.32 kg/m2 07/18/2024 Encounters Encounter Location Date Provider Diagnosis [facility] [address] [address] 05/03/2024 Yennydorothy Elizalde Urgency of urination R39.15 and Abscess of vulva N76.[address] [address] 05/10/2024 Yenny Elizalde Abscess of vulva N76 .[address] [address] 05/17/2024 Yenny Elizalde Abscess of vulva N76 .[address] [address] 07/09/2024 Yenny Tonio Urgency of urination R39.15 ; Acute vaginitis N76.0 and Postmenopausal atrophic vaginitis N95.[address] [address] 07/18/2024 Yenny Elizalde Encounter for screening mammogram for malignant neoplasm of breast Z12.31 and Mastodynia N64.[address] [address] 05/10/2024 Yenny Lovettva [facility] [address] [address] 05/13/[address] [facility] [address] [facility] [address] [place] [address] 06/11/2024 Yenny Elizalde Assessments Encounter Date Diagnosis [...] [facility] AND DISCUSSED THIS [...] Date MEDICARE [address] VEDA NIEVES [id number] [phone] [id number] SHIRLEY CINDA Self - patient is the insured MEDEX [address] [place] [address] [phone] [id number] DANIEL WATSONE Self - patient is [...]
--- OUTSIDE RECORDS SUMMARY | 2025-02-14 09:29 | XMS_ITS | Clinical Summary ---
Author Organization [facility] Address [address] [place] [address] Care Team Providers Care Recreation Supervisor Name Role Phone Brennan Burnett MD [...] age to complete this topic Care Teams Recreation Supervisor Relationship Specialty Start Date End Date Brennan Burnett MD [address] [place] [address] PCP - General Internal Medicine 07/06/20
--- OUTSIDE RECORDS SUMMARY | 2025-02-14 09:29 | XMS_ITS | Encounter Summary ---
Author Organization [facility] Address [address] [place] [address] Care Team Providers Care Bar Attendant Name Role Phone Caitlyn Bowie MD Primary Care Provider +1- [phone] Encounter Details Date Type Department Care Team (Late st Contact Info) Description 07/08/2020 Scanned Document [facility] Health Information Management [address] [place] [id number] External, Provider Social History Tobacco Use Types [...] [facility] at [facility] [address] [facility] [address] [place], [place] [id number] Ronald Mills MD [address] [place] [address] [address] [place] [address] documented as of this encounter [...] documented as of this encounter Care Teams Bar Attendant Relationship Specialty Start Date End Date Caitlyn Bowie MD [address] [address] PCP - General Internal Medicine 05/06/21 documented as of this encounter
--- OUTSIDE RECORDS SUMMARY | 2025-02-14 09:30 | XMS_ITS | Clinical Summary ---
Author Organization [facility] Address [address] [place] [address] Care Team Providers Care Manufacturing Area Manager Name Role Phone Caitlyn Bowie MD Primary Care Provider +1- [phone] Allergies Active Allergy Reactions Criticality Noted Date [...] Breath High 05/09/2008 Bronchospasm or Wheezing Ipratropium [place] Unknown/Patient and Family Unable to Define Medium [...] 1 capsule by mouth daily. Active B Cjdouyy-M-Rqntj Acid (STRESS 500 B-COMPLEX PO) Take 1 [...] Type Department Care Team Description 11/22/2024 Telephone [facility] Neurology Sports [address] [phone] Yary Whitten DO from Last 3 Months [...] MEDICARE PART A & B [facility] Care Teams Manufacturing Area Manager Relationship Specialty Start Date End Date Caitlyn Bowie MD [address] [place] [address] PCP - General Internal Medicine 03/20/23
--- OUTSIDE RECORDS SUMMARY | 2025-02-14 09:30 | XMS_ITS | Clinical Summary ---
Author Organization [facility] Address [address] [place] [address] Care Team Providers Care Director Of Broadcast Name Role Phone Caitlyn Bowie Primary Care [...] Throat tightness Throat tightness Throat tightness Ipratropium [place] Unknown Medium 12/18/2021 Isosorbide Mononitrate 11/23/2020 Other [...] topic Insurance MEDICARE PART A & B [facility] Care Teams Director Of Broadcast Relationship Specialty Start Date End Date Caitlyn Bowie [address] [place] [address] PCP - General Internal Medicine 07/18/22
[2025-02-14 10:15] LABS: Potassium 4.2 mmol/L (3.3-5.1)
[2025-02-14 10:18] LABS: Anion Gap 11 (12-20); Blood Urea Nitrogen 26 mg/dL (9-16); Calcium 10.6 mg/dL (8.4-10.2); Carbon Dioxide 37 mmol/L (22-29); Chloride 98 mmol/L (96-108); Estimated Glomerular Filt Rate > 60; Potassium 4.1 mmol/L (3.3-5.1); Sodium 142 mmol/L (135-145)
== END 2025-02-14 09:22 | disposition home or self-care (01) ==
LOC: HO.LAB 09:21
PROVIDERS: PCP Internal Medicine; Visit Provider Internal Medicine Cardiovascular Disease
DX: E87.6 Hypokalemia (principal); R00.0 Tachycardia, unspecified
CPT/HCPCS: 36415; 80048; 84132

== ENCOUNTER 2025-02-18 14:26 | Outpatient (AMB) | payer MEDICARE, SELFPAY ==
--- NOTE | 2025-02-18 14:28 | MHC.OFFVIS ---
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 Required: No Accompanied by: Self / Same As Patient Allergies morphine Allergy (Severe, Verified 02/18/25 14:32) Itching avocado (AVOCADO) Allergy (Mild, Verified 02/18/25 14:32) ITCHY THROAT, RASH azithromycin (AZITHROMYCIN) Allergy (Mild, Verified 02/18/25 14:32) ITCHY THROAT, RASH barium iodide (BARIUM IODIDE) Allergy (Mild, Verified 02/18/25 14:32) ITCHY THROAT, RASH barium sulfate Allergy (Mild, Verified 02/18/25 14:32) Itch bee pollen (BEE STINGS) Allergy (Mild, Verified 02/18/25 14:32) ITCHY THROAT, RASH ciprofloxacin (From CIPRO) Allergy (Mild, Verified 02/18/25 14:32) ITCHY THROAT, RASH clarithromycin (From BIAXIN) Allergy (Mild, Verified 02/18/25 14:32) ITCHY THROAT, RASH diatrizoate meglumine (From GASTROGRAFIN) Allergy (Mild, Verified 02/18/25 14:32) ITCHY THROAT, RASH diatrizoate sodium (From GASTROGRAFIN) Allergy (Mild, Verified 02/18/25 14:32) ITCHY THROAT, RASH diclofenac (From VOLTAREN) Allergy (Mild, Verified 02/18/25 14:32) ITCHY THROAT, RASH erythromycin base (ERYTHROMYCIN BASE) Allergy (Mild, Verified 02/18/25 14:32) ITCHY THROAT, RASH gentamicin (GENTAMICIN) Allergy (Mild, Verified 02/18/25 14:32) ITCHY THROAT, RASH Iodinated Contrast Media (IVP DYE) Allergy (Mild, Verified 02/18/25 14:32) ITCHY THROAT, RASH levofloxacin (From LEVAQUIN) Allergy (Mild, Verified 02/18/25 14:32) ITCHY THROAT, RASH metronidazole (From FLAGYL) Allergy (Mild, Verified 02/18/25 14:32) ITCHY THROAT, RASH moxifloxacin (From AVELOX) Allergy (Mild, Verified 02/18/25 14:32) ITCHY THROAT, RASH Penicillins (PENICILLINS) Allergy (Mild, Verified 02/18/25 14:32) ITCHY THROAT, RASH shrimp (SHRIMP) Allergy (Mild, Verified 02/18/25 14:32) ITCHY THROAT, RASH Sulfa (Sulfonamide Antibiotics) (SULFA (SULFONAMIDE ANTIBIOTICS)) Allergy (Mild, Verified 02/18/25 14:32) ITCHY THROAT, RASH vancomycin (VANCOMYCIN) Allergy (Mild, Verified 02/18/25 14:32) ITCHY THROAT, RASH clindamycin Adverse Reaction (Intermediate, Verified 02/18/25 14:32) Unknown HPI Comments Details: The patient is a 79 y/o woman with a complicated history which includes: COPD, KANDY, pulmonary HTN, history pulmonary emboli on chronic anticoagulation, lung CA Stage IIIA s/o neoadjuvant chemoradiation and Left upper lobe lobectomy. She did have a CT scan today that I personally reviewed. Has not been personally read by the radiologist. Based on my reading she has some pulmonary nodules some that are new 4 mm in the right major fissure area. Other nodules are stable. Other post operative and pulmonary fibrotic changes stable. The patient should get a CT scan in 6 months. Also to note, she did not tolerate the Incruse nor budesonide. Will consider Daliresp. She was admitted to [facility] with diverticulitis. She was placed on IV antibiotics but she left against medical advice because she did not like the antibiotic options. In the meantime she was having some issues with coughing up some blood. She is also concerned because on her visit to [facility] she did have a CT scan of the chest and she was told that she had significant scarring of her lungs in addition to lung volume loss. I have not looked at the CT scan back in reassured her that she has had this radiation fibrosis for long time and volume loss due to the scarring was present before. We did review her perfusion scan demonstrating no defects to suggest any blood clots. Interestingly in the quantitative study the patient did have 81% of the blood flow going to her right lung and 18% going to the left. This is likely due to her previous surgery and also radiation changes. 03/21/2024 the patient is here for pulmonary follow-up visit. She has multiple complaints. She is entirely seems any physicians. She is still dealing with the wound getting plenty of wound care 4. Still getting debrided. In addition to that she has had a productive cough. The phlegm is now clear but thick difficult to expectorate. Sometimes feel like it is dripping for nasal passages down like a postnasal drip. The patient is currently on cefpodoxime. She is finishing a course. We did try to get sputum in the office but she was not able to do so. I did give her a cup in order for her to be doing her own time. We will be able to look for both Gram stain culture and also AFB. The patient also had a chest x-ray which I personally reviewed and also compared to her previous x-rays. It appears that she has worsening left-sided pleural effusion. Hard to know that is long as very affected on that side there is any active disease otherwise. She has not had a CT scan since October. In view of the worsening chest x-ray in the ongoing symptoms will go ahead and request a CT scan time. The patient also could try some Mucomyst. I will send some to the pharmacy to see if we can get it. She understands that is hard to get. When she gets she can use it twice a day for CPT to see if this helps clear the secretions that gets that within her airways. In addition to that the patient has been using the BiPAP. The BiPAP therapy has been affecting beneficial. She does use it for more than 4 hours a night. However, she does have a component of hypercarbia and she would do better with the noninvasive ventilator. Currently she is set up for sleep study at [facility] coming up. Hopefully they can do a split study and try titrate her figure out what her best form of therapy it is. At some point though if she continues on the BiPAP will need to replace it because his older than 5 years. 05/09/2024 the patient is here for a pulmonary follow-up visit. Overall she is doing well from a respiratory status. She recently did have a CT scan of the chest that at [facility]. I did personally reviewed. Appears to be stable. She does have the chronic effusion in the parenchymal disease. This is all stable. She does have a small compression fracture though. Has significant osteopenia. She did have blood work with her human resources assistant manager recently. Her antiphospholipid antibodies and anticardiolipin antibodies continue antiphospholipid antibody elevated. Her homocystine that was also elevated. She is going to start folic acid. She is concerned because her D-dimer was significantly elevated. Although she did have trauma to the legs. She had lower extremity Dopplers which were negative for any clots which is reassuring. Previous he Q scans have been reassuring. Will go ahead and repeat her blood test to see make sure that the D-dimer is coming down. If the D-dimer continues to be elevated then will do additional testing for potential occult clots. She continues on the Coumadin with a goal level 1.5-2. I do believe that she should stay on it based on the fact that she has significant symptoms and coming off the medicine may result in more security of the results specially since the Coumadin has been working for her chronic thromboembolic disease. From the wound standpoint the patient is doing better from the wound healing on her right lower extremity although she recently had another the trauma to the left. She is also dealing with a boil or a growth on the perineal area. She is going to be seeing fire[employer] for that. 08/08/2024 the patient is here for a pulmonary follow-up visit. Overall she is doing okay. She does have issues with her balance and also issues with dysuria. The patient has been also having issues with her oxygen that was at nighttime. She has been noticing worsening hypoxia. She has been using her BiPAP 16/10. She does use it with her oxygen. The patient did have a download recently and her AHI is up to 10 cm. She also had a blood gas demonstrating elevations in her CO2. Therefore, will go ahead and increase her BiPAP settings from 16-10 to 18/12. This BiPAP is about 6 years old now. The patient likely needs a replacement. Will go ahead and refer her to sleep in [place] in order for her to undergo a split study in order to get her a new PAP therapy. During the titration study component will be helpful to see if she is better off with AVAPS versus BiPAP. We did try her underlying AVAP but she could not tolerate it. She followed she did not have enough teaching. Therefore, will go ahead and increase the pressures of her BiPAP monitor her AHI and recheck a venous gas while we wait for her to see a certified sleep specialist in [place]. In the meantime she continues with her diuresis. Will go ahead and check a blood work. The patient also had a CT scan of the chest back in 03/29/2024 demonstrating no acute disease just a chronic changes. Will plan to talk about any additional imaging during her next visit. She will continue with current respiratory regimen for now. 09/11/2024 the patient is here for hospital follow-up visit. Apparently she was in the ER with worsening shortness of breath and cough. She was at [facility]. There she did have blood work. Her brain atretic peptide was significantly elevated at 100. She also did have a CT scan of the chest which I personally reviewed. She does have just chronic findings which include her radiation fibrosis decreased lung volume on the left along with the small pleural effusion on the left with the heart shifted Leftward as well volume loss. She was diagnosed with bronchitis and the patient was discharged. We did review further blood work and her sedimentation rate has been climbing slowly now at 51. in addition to that she does have a history of positive CLARA and now she is complaining of some pleuritic chest discomfort bringing up the question of underlying connective tissue disease resulting in some pleuritis. In addition to that she has been feeling episodes of increased heart rate and shortness of breath. I suspect that is likely a pulmonary vascular component. Her last echocardiogram demonstrating moderate degree of pulmonary hypertension. Unfortunately, she did not tolerate pulmonary vasodilators because if the significant amount of increase in the volume to the left ventricle then ultimately resulting in congestive heart failure. Therefore hold off on that. The patient is also anxious. She is not sleeping well. She feels that she is going to fall asleep and not wake up. She is willing to try small dose of Ambien. This will help her fall asleep and I explained to her that is not going to suppress her respiratory drive. We also did look at her blood gas that she had initially when she showed up and she had a severe case of respiratory alkalosis and she was able to breathe down her pCO2 down to 24 which is pretty significant. In addition to that she is willing to try small dose of Plaquenil to treat her for underlying pleuritis and pain and see if this can provide some relief as we repeat her blood work. She will be following up with Hematology. 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 I did print out the blood work so she can talk to her human resources assistant manager in the meantime will go ahead and repeat her blood work as well. She continues to be on high dose of diuretics. Volume status seems to be better at this time. She continues use the oxygen with good effect. Sometimes her oxygen drops because of her cardiopulmonary disease. She does not have much pulmonary reserve. In with the pulmonary hypertension along with diastolic dysfunction this quit quickly result in hypoxia. She can take breaks though when she is sitting as lungs are oxygens above 90%. 11/04/2024 the patient is here for a pulmonary follow-up visit. Since we last spoke she started developing abdominal pain. She did go to the ER where she was diagnosed with diverticulitis based on a CAT scan showing fat stranding close to the areas of diverticulosis in the left descending colon. The patient was not given any antibiotics because of all her allergies. She then followed up with the GI doctor called and it was recommended that she go back to the ER. She has not started any therapy for this. She has been feeling a little dehydrated from the lack of p.o. intake as she is doing significant amount of bowel rest. She has tolerated cephalosporins in the past. I will go ahead and send her Vantin to the pharmacy that she can use. She has also tolerated ceftriaxone in the hospital that has also been helpful for her. She does not tolerate clindamycin anymore and unfortunately she does not call tolerate the Flagyl either so we can not provide her with any anaerobic coverage. Still though Vantin has a broad spectrum coverage and should help. If her symptoms worsen though she should definitely go to the ER specially she is getting dehydrated or for abdominal comfort is worse or if she started developing fevers or chills or any other concerning symptoms. As far as her sleep apnea the patient did undergo a sleep study. This was done in [place]. It was recommended that based on her sleep apnea noted on his study that she start CPAP therapy. I did not see that they checked the end-tidal CO2 but at this point I think is reasonable for her to start CPAP on 2 L of oxygen and if she does not tolerate that if she fails CPAP we can quickly switch over to BiPAP anyway. Will go ahead and request a replacement APAP through [employer] [employer]. And therefore she can get her supplies as well. If she has a machine prior to her next appointment she can always bring it in so we can review with her. From a respiratory status she is okay she is using her oxygen with good effect. The patient continues on the Lasix as well she is taking 160 mg daily total. Because of her significant weight loss decreased p.o. intake I did have her only take half the dose for couple days in order for her to read a Barkley very and then go back to the full dose when she is able to take by mouth. 11/21/2024 the patient is here for pulmonary follow-up visit. The patient overall has been feeling better from the diverticulitis. She did complete the Vantin. She still has some on hold in case her symptoms worsened again. She will be following up with Dr. Fang soon. In the meantime respiratory status is stable. She does have bowel some dyspnea and hypoxia. She is already on high dose of diuretics. She is going to be following up a heart failure specialist. I do believe that is [facility] may be a potential option for her. In the meantime she continues use her respiratory therapy with good effect. She continues use her oxygen did effect. She also continues use the BiPAP every night. BiPAP therapy has been affecting beneficial. She does use it for more than 4 hours a night. She is complaining of a dry mouth. I did increase the humidity a little bit. She can always increase in more from home. In the meantime her BiPAP is very old. Will request a replacement BiPAP at this time with a local [employer] [facility], [facility]. Otherwise patient follow-up in 2-3 months. If she has any issues prior to this she will call for an earlier assessment. 12/26/2024 the patient is here for sick visit. The patient had a an event at home where she was exposed to a smoke due to vinegar and also baking soda as she was trying to clean a pot. She did develop some difficulty breathing and a significant cough. She did call the office and we had increased her prednisone to 20 mg. Seems that she is getting better although she has a still barky cough. Still feels like she has a very sore trachea. Likely from respiratory dysfunction syndrome from the initial exposure to the fumes and smoke. She is having hard time sleeping having some chest discomfort. Will try some cough medication with codeine to try to alleviate her symptoms. She is going to wean down to the baseline prednisone of 5 mg. In the meantime she continues have daytime drowsiness. She has been using just oxygen though. She has had 2 sleep studies demonstrating no evidence of any significant sleep apnea. Therefore, will hold off on CPAP therapy at this time. Will go ahead and check a blood gas to see if her CO2 is elevated. If her CO2 is elevated then we have to consider treatment for chronic hypercarbic respiratory failure. The patient also has been complaining of dyspnea on exertion. Moderate severity. Will go ahead and start her on PFTs and pulmonary rehabilitation. 01/02/2025 the patient is here for a pulmonary follow-up visit. The patient has been using the BiPAP. The BiPAP therapy appears to be affecting beneficial by though she is swallowing a lot of air and getting some bloating. I did decrease the pressures were 18/12 to 16/8. She also had a blood gas demonstrating a pCO2 of 59 mmHg. The patient therefore benefits from the BiPAP. The machine now is older and needs to be replaced. We will go ahead and request an overnight oximetry to see if we can have her qualify for BiPAP again with [facility]. Otherwise we may have to stay with [facility] about getting a replacement BiPAP through them. The patient did have pulmonary function studies and I did personally reviewed him. Appears to have interval worsening overall with now moderate obstruction consistent with moderate COPD and also moderate restrictive ventilatory defect which is also worse. In addition to the severe diffusion impairment likely secondary to the above findings and her underlying pulmonary vascular disease. This all explained the need for unconfirmed Ingrid for the oxygen supplementation. She continues to use a nebulizer. Her machine is no longer working correctly therefore we will request a replacement. And I do feel strongly about her performing pulmonary rehabilitation. In the meantime she did have a twisting of her ankle and she is having some right ankle pain and bruising so therefore will have her get an x-ray of that before she starts rehab. 02/18/2025 the patient is here for a pulmonary follow-up visit. She is still struggling with her respiratory symptoms. Sometimes developing chest tightness and not sure if his cardiac or pulmonary. The last time she was in the hospital was back in early February. She had an x-ray which was without any acute issues just a chronic left-sided pleural effusion. Her blood work was okay except for slightly elevated troponins which have been elevated since October. The patient has been on the diuretics. She seems to be tolerating them well in her volume status is overall better. Recently though she was having issues with her left eye having some eye pain and blurriness and she went to see the curatorial assistant and she was diagnosed with optic neuritis. She does have a history of connective tissue conditions and question of multiple sclerosis when she was very young. Therefore, is not clear at this point but she did have increased dose of prednisone given. And she is going to taper it down. I did encourage her to make sure she follows up with ophthalmology to make sure that the neuritis subsides. In the meantime the patient is been using the BiPAP. Unfortunately though we did an overnight oximetry which still showing significant hypoxia and she will need to have increased oxygen needs with the BiPAP and also she had a blood gas demonstrating an elevated pCO2 of 61 mmHg suggesting that she is failing BiPAP. The patient needs to go on a noninvasive ventilator. She does not have obstructive sleep apnea. The patient does have chronic hypoxic and hypercarbic respiratory failure due to her COPD. And at this point she carries a poor prognosis and high risk so hospitalizations. Therefore, she needs to be on a noninvasive ventilator to improve her gas exchange decrease her hospitalizations and improve her prognosis. [facility] Medical History Chest pain Chest pain Ankle pain Chronic hypercapnic respiratory failure KANDY treated with BiPAP COPD (chronic obstructive pulmonary disease) Open wound Warfarin anticoagulation Complex sleep apnea syndrome Leg pain Anemia Tachycardia DVT (deep venous thrombosis) Compression fracture of body of thoracic vertebra ASD (atrial septal defect) Pleuritic chest pain History of COVID-19 Chronic anticoagulation Hypothyroidism GERD (gastroesophageal reflux disease) Hyperlipidemia Hypertension Factor 5 Leiden mutation, heterozygous History of non-ST elevation myocardial infarction (NSTEMI) Hypoxia Anxiety PTSD (post-traumatic stress disorder) Hemoptysis Dyspnea Tracheobronchitis CLARA positive Diverticulitis Allergic bronchitis (HFpEF) heart failure with preserved ejection fraction Subarachnoid bleed Insomnia Anti-phospholipid antibody syndrome Hypogammaglobulinemia Chronic respiratory failure Arterial insufficiency of lower extremity Complex regional pain syndrome i of right lower limb Post herpetic neuralgia Pulmonary hypertension Pericardial effusion Pulmonary emboli Pleural effusion Radiation fibrosis of lung Pneumonitis Pulmonary nodules Lung cancer Surgical History History of colonoscopy History of lung surgery History of tonsillectomy History of hysterectomy S/P mitral valve clip implantation History of cardiac cath Family History Sister No problems noted. Mother Cardiovascular disease Daughter Tachycardia Other KANDY (obstructive sleep apnea) Social History Household Members: Other Housing: [facility] Do you presently have visiting nurse or other home services: Yes (at home had OTHER SPATIAL SCIENTIST that came to visit her) Unable to assess alcohol history related to: Unknown Alcohol intake: never Comment: stand by assist with ambulation Patient Tobacco Use Status: Never used Tobacco Second Hand Smoke Exposure: No Advance Directives Date on File: 06/15/22 service: No Current occupational status: retired Review of Systems Const Denies chills, Denies fatigue, Denies fever(s), Denies weight gain and Denies weight loss Eyes Denies change in vision ENT Denies dizziness Card Reports chest pain, Reports leg edema, Denies lightheadedness, Denies palpitations, Reports dyspnea on exertion, Denies orthopnea and Denies other Resp Reports cough, Reports pain on inspiration, Reports pain with cough, Reports dyspnea on exertion and Reports wheezing GI Denies hematochezia and Denies change in stool character Musc Denies abnormal gait, Denies muscle weakness, Denies numbness, Denies radiating pain into limb and Denies tingling Skin/Breast Reports change in pigmentation, Reports skin swelling and Reports unusual bruising Neuro Denies abnormal gait, Denies dizziness, Denies numbness and Denies tingling Psych Reports depression Endo Denies fatigue and Denies palpitations Aller/Immun Reports wheezing Physical Exam Vital Signs: Last Vital Signs Pulse 83 02/18/25 14:29 BP 124/60 02/18/25 14:29 Pulse Ox 97 02/18/25 14:29 Oxygen Delivery Method Room Air 02/18/25 14:29 Last Vital Signs Temp 97.7 F 06/20/22 08:00 Pulse 90 06/20/22 08:00 Resp 16 06/20/22 08:00 BP 137/60 06/20/22 08:00 Pulse Ox 93 06/20/22 08:00 O2 Del Method 06/20/22 08:00 O2 Flow Rate 2 06/20/22 08:00 FiO2 45 06/14/22 11:07 BMI result Body Mass Index 23.0 Const General: cooperative, comfortable, alert and awake Orientation/consciousness: patient oriented x3 HEENT Head: Yes atraumatic Eyes General: appearance normal, both eyes and all related structures Neck Neck: Yes trachea midline, Yes supple and Yes no JVD Chest Chest palpation & inspection: tenderness rib (right side) Resp Effort & Inspection: normal respiratory effort, no cough and No prolonged expiratory phase Auscultation: no rales, no rhonchi, no wheezes and diminished lung sounds Cardio Rate: regular rate Rhythm: regular rhythm Heart sounds: S1 normal heart sound present and S2 normal heart sound present GI Palpation (GI): Soft to palpation and Tenderness to palpation present (GI) in the LLQ Auscultation: normal bowel sounds Skin General skin exam: purpura and scars Neuro General: patient oriented x3 and no focal motor deficits Extrem Right lower extremity: edema Results Reviewed Results Reviewed: Spirometry with moderate COPD Assessment & Plan Assessment & Plan (1) COPD (chronic obstructive pulmonary disease): Code(s): J44.9 - Chronic obstructive pulmonary disease, unspecified Category: Medical Qualifiers: COPD type: chronic bronchitis Chronic bronchitis type: simple Qualified Code(s): J41.0 - Simple chronic bronchitis (2) Chronic hypercapnic respiratory failure: Code(s): J96.12 - Chronic respiratory failure with hypercapnia Category: Medical (3) Pulmonary hypertension: Comment: severe based on RHC, moderate based on recent echo Code(s): I27.20 - Pulmonary hypertension, unspecified Category: Medical (4) Pulmonary nodules: Code(s): R91.8 - Other nonspecific abnormal finding of lung field Category: Medical (5) Chronic respiratory failure: Code(s): J96.10 - Chronic respiratory failure, unspecified whether with hypoxia or hypercapnia Category: Medical Qualifiers: Respiratory failure complication: hypoxia and hypercapnia Qualified Code(s): J96.11 - Chronic respiratory failure with hypoxia; J96.12 - Chronic respiratory failure with hypercapnia (6) Radiation fibrosis of lung: Code(s): J70.1 - Chronic and other pulmonary manifestations due to radiation Category: Medical (7) (HFpEF) heart failure with preserved ejection fraction: Code(s): I50.30 - Unspecified diastolic (congestive) heart failure Category: Medical Qualifiers: Heart failure chronicity: chronic Qualified Code(s): I50.32 - Chronic diastolic (congestive) heart failure (8) Lung cancer: Code(s): C34.90 - Malignant neoplasm of unspecified part of unspecified bronchus or lung Category: Medical Qualifiers: Laterality: left Lung location: upper lobe of lung Qualified Code(s): C34.12 - Malignant neoplasm of upper lobe, left bronchus or lung (9) Pleural effusion: Code(s): J90 - Pleural effusion, not elsewhere classified Category: Medical Plan complete prednisone 10mg, then, prednisone 2.5mg daily cough medicine Ambien for sleep continue Advair ASHA as needed continue ASHA (xopenex) as needed CPT with acapella valve fluticasone Oxygen 2L/pulse with activity and sleep. POC Inogen G5 duiresis as tolerated stop BIPAP decreased pressures 16/8, failed BIPAP, require non invasive ventilator. Has Chronic hypercarbic respiratory failure due to COPD and carries apoor prognosis and high hospitalization risk. A non invasive ventilator will provide better gas exchange, improve prognosis and decreased hospitalizations. THe patient will use the NIV more than 8 hours aday. PSG- 2 sleep studies without any evidence of KANDY declined Ohtuvayre stopped Pulmonary rehab F/U 6 weeks Coding Level of Care Code Est Pt Level 5 (93572) Complex EM visit Add On G2211 Diagnoses Simple chronic bronchitis J41.0 COPD type: chronic bronchitis Chronic bronchitis type: simple Chronic hypercapnic respiratory failure J96.12 Pulmonary hypertension I27.20 Pulmonary nodules R91.8 Chronic respiratory failure with hypoxia and hypercapnia J96.11; J96.12 Respiratory failure complication: hypoxia and hypercapnia Radiation fibrosis of lung J70.1 Chronic heart failure with preserved ejection fraction I50.32 Heart failure chronicity: chronic Malignant neoplasm of upper lobe of left lung C34.12 Laterality: left Lung location: upper lobe of lung Pleural effusion J90 Time Spent (min) 50
[2025-02-18 14:29] VITALS: BP 124/60; PULSE 83; O2SAT 97
--- OUTSIDE RECORDS SUMMARY | 2025-02-18 15:24 | XMS_ITS | Patient Health Record ---
Author Organization [facility] Address [address] [place] [address] Care Team Providers Care Dermatology Sales Representative Name Role Phone EVELIN RAMSAY Primary Care Provider Yenny Hou Unavailable [phone] Allergies Allergen (clinical drug ingredient) Drug/Non Drug [...] UROBILINOGEN Neg BILIRUBIN Neg BLOOD Neg Urinalysis, Complete-[id number] Reviewed date:05/04/2024 11:35:42 PM Interpretation: Performing Lab:[facility], [address] [place] [address], Phone - [phone], Director - Arely Notes/Report: Specific Henrietta 1.009 1.005-1.030 pH 6.5 5.0-7.5 Urine-Color Yellow [...] Bacteria None seen None seen/Few Urine Culture, Routine-[id number] Reviewed date:05/04/2024 11:35:22 PM Interpretation: Performing Lab:[facility], [address] [place] [address], Phone - [phone], Director - Arely Notes/Report: Urine Culture, Routine Final report Result 1 Culture shows less than 10,000 colony forming units of bacteria per milliliter of urine. This colony count is not generally considered to be clinically significant. PDF Report Reviewed date:05/04/2024 11:35:04 PM Interpretation: Performing Lab:[facility], [address] [place] [address], Phone - [phone], Director - Arely Notes/Report: Reason For Referral [...] 25MCG 1 ORAL daily; Durati on: -3 [facility] 06/10/2014 Active ZyrTEC Allergy 10MG 1 [...] 50MG 1 ORAL at bedtime; Duration: -3 [facility] 06/10/2014 Active Meclizine HCl 25 MG 1 tablet as needed Orally [facility] 06/10/2014 Active Albuterol Sulfate (2.5 MG/3ML)0.083% Inhalation 4 x a day prn 06/10/2014 Active Valium 5MG 1 tablet as needed O RAL at bedtime, 1/2 tab prn during the day [facility] 06/10/2014 Active Social History Tobacco Use: [...] Status Risk Notes Problem Postmenopausal atrophic vaginitis (60608927) Postmenopausal atrophic vaginitis (N95.2) Active confirmed Problem Age-related osteoporosis (391129520) Age-related osteoporosis without current pathological fracture (M81.0) Active confirmed Problem Urgent desire to urinate (42144519) Urgency of urination (R39.15) Active confirmed Problem 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 Problem Chronic systolic heart failure (445391856) Chronic systolic (congestive) heart failure (I50.22) Active confirmed Problem Chronic obstructive pulmonary disease (41170820) Chronic obstructive pulmonary disease, unspecified (J44.9) Active confirmed Problem Functional urinary incontinence (585555636) Functional 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) Active confirmed Problem Personal history of primary malignant neoplasm of bronchus (268034750) 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) Active confirmed Vital Signs Temperature 97.7 degrees Fahrenheit 07/18/2024 Blood pressure diastolic 62 mm Hg 07/18/2024 Height 63 in 07/18/2024 Blood pressure systolic 102 mm Hg 07/18/2024 Weight 126 lbs 07/18/2024 BMI 22.32 kg/m2 07/18/2024 Encounters Encounter Location Date Provider Diagnosis Total [address] [address] 05/03/2024 Ynenydorothy Elizalde Urgency of urination R39.15 and Abscess of vulva N76.[address] [address] 05/10/2024 Yenny Elizalde Abscess of vulva N76 .[address] [address] 05/17/2024 Yenny Elizalde Abscess of vulva N76 .[address] [address] 07/09/2024 Yenny Tonio Urgency of urination R39.15 ; Acute vaginitis N76.0 and Postmenopausal atrophic vaginitis N95.[address] [address] 07/18/2024 Yenny Elizalde Encounter for screening mammogram for malignant neoplasm of breast Z12.31 and Mastodynia N64.[address] [address] 05/10/2024 Yenny Lovettva Total [address] [address] 05/13/[address] [facility] [address] [place] [address] 06/11/2024 Yenny Elizalde Assessments Encounter Date Diagnosis [...] [facility] AND DISCUSSED THIS PAT. [...] Date MEDICARE [address] VEDA NIEVES [id number] [phone] [id number] SHIRLEY CINDA Self - patient is the insured MEDEX [address] [place] [address] [id number] DANIEL WATSONE Self - patient is [...]
--- OUTSIDE RECORDS SUMMARY | 2025-02-18 15:24 | XMS_ITS | Encounter Summary ---
Author Organization [facility] Address [address] [place] [address] Care Team Providers Care Chief Of Safety And Protection Name Role Phone Caitlyn Bowie MD Primary Care Provider +1- [phone] Encounter Details Date Type Department Care Team (Late st Contact Info) Description 07/08/2020 Scanned Document [facility] Health Information Management [address] [place] [address] External, Provider Social History Tobacco Use Types [...] [facility] [address] [place], [place] [id number] Ronald Mills MD [address] [place] [address] [address] [place] [address] documented as of this encounter [...] as of this encounter Care Teams Chief Of Safety And Protection Relationship Specialty Start Date End Date Caitlyn Bowie MD [address] [address] PCP - General Internal Medicine 05/06/21 documented as of this encounter
--- OUTSIDE RECORDS SUMMARY | 2025-02-18 15:24 | XMS_ITS | Clinical Summary ---
Author Organization [facility] Address [address] [place] [address] Phone Care Team Providers Care Residency Coordinator Name Role Phone Caitlyn Bowie MD Primary Care Provider +1- [phone] Allergies Active Allergy Reactions Criticality Noted Date [...] 20 mg as needed by her previous tool design draftsperson which she has taken sporadically. I have asked her to take this daily to see if this improves her symptoms and she has a follow-up appointment with Dr. Shah on September 16 which she will keep. We also had a long conversation regarding the fact that she is seeing 3 different tool design draftsperson for the same problems. We informed her [...] continues to see Dr. Avalos or her tool design draftsperson at [facility]. She verbalized understanding of this and [...] right lower leg 03/06/2019 Antiphospholipid antibody syndrome ([facility] V24) 12/24/2018 Adrenal insufficiency ([facility] V24) 08/23/2018 Allergic rhinitis 08/23/2018 Hyperparathyroidism ([facility] V24) 08/23/2018 MRSA infection 08/23/2018 Overview (05/16/2024): 06/2009, s/p thoracotomy infection Osteoarthritis 08/23/2018 Radiation-induced pulmonary fibrosis ([facility] V2 4) 11/13/2017 Bronchiectasis ([facility] V24, [facility] V28) 2017 Leg edema 08/08/2017 Restrictive lung disease 08/08/2017 Chronic obstructive pulmonar y disease ([facility] V24, [facility] V28) 04/13/2017 Fibromyalgia 04/13/2017 Congestive heart failure ([facility] V24, [facility] V 28) 04/04/2017 Heterozygous factor V Leiden mutation ([facility] V 24) 04/04/2017 Obstructive sleep apnea syndrome 04/04/2017 Overview (05/16/2024): CPAP Pleural effusion 04/04/2017 Pulmonary hypertension ([facility] V24, [facility] V28 ) 04/04/2017 Multiple pulmonary nodules 03/17/2017 [...] EDT - 01/19/2025 9:08 PM EDT Emergency [facility] Emergency [address] [place] [address] Discharge Disposition: Home or Self Care 12/23/2024 9:00 AM EDT Office Visit Vascular Surgery - [place] [address] [place] [address] Jerry Li MD Complex regional pain syndrome type 1 of both lower extremities (Primary Dx); Leg swelling 12/10/2024 2:43 PM EDT - 12/10/2024 4:57 PM EDT Emergency [facility] Emergency [address] [place] [address] Head injury, initial encounter (Primary Dx) Discharge Disposition: Home or Self Care 12/10/2024 1:30 PM EDT Office Visit [facility] [address] [place] [address] Shirley Chaidez PA White matter [...] Akathisia 04/15/2013 DX:Akathisia Anxiety 12/07/2016 DX:Anxiety Bronchiectasis ([facility] V24, [facility] V28) 08/08/2017 DX:Bronchiectasis (HCC) Cataract 08/26/2014 [...] dori pect Heterozygous factor V Leiden mutation ([facility] V24) 04/04/2017 DX:Heterozygous factor V Lei [...] syndrome 02/18/2013 DX:Postc oncussion syndrome Pulmonary hypertension ([facility] V24, [facility] V28) 04/04/2017 DX:Pulmonary hypertension (H CC) Restrictive lung disease 08/08/2017 DX:Rest rictive lung disease 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 DX:Zinc deficien cy Obstructive sleep apnea syndrome 04/04/2017 DX:Obstructive sleep apnea syndrome; COMMENT: CPAP Radiation-induced pulmonary fibrosis ([facility] V24) 11/13/2017 DX:Radiation-induced pulmona ry fibrosis (HCC) Adrenal insufficiency ([facility] V24) 08/23/2018 DX:Adrenal insufficiency (HCC) Hyperparathyroidism ([facility] V24) 08/23/2018 DX:Hyperparathyroidism (HCC) Osteoporosis 11/17/2016 [...] Mx LLL resection, Chemo, RT, Cisplatin, Vinorelbine [id number] Antiphospholipid antibody sy ndrome ([facility] V24) 12/24/2018 DX:Antiphospholipid antibody syndrome (HCC) 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 Hyperparathyroidism ([facility] V24) DX:Hyperparathyroidism (HCC) Adrenal insufficiency ([facility] V24) DX:Adrenal insufficiency (HCC) Family History [...] Description 02/21/2025 4:30 PM EDT Office Visit [facility] [address] [place] [address] Shirley Chaidez PA [address] [place] [address] Health Maintenance Due Date Last Done Comments [...] Signed Date: 12/10/2024 16:12 ET Workstation ID: [id number] Transcribed By: Self Edit Transcribed Date: 12/10/2024 [...] Signed Date: 12/10/2024 16:12 ET Workstation ID: [id number] Transcribed By: Self Edit Transcribed Date: 12/10/2024 16:10 ET Kelly KAPOOR IM CT PROCEDURES Final Resul t * (ABNORMAL) Comprehensive metabolic panel (06/15/2024 1:26 PM EST) Sodium 140 133 - 145 mmol/L LAB CHEMISTRY METHOD 06/15/2024 2:10 PM [facility] Potassium 4.7 3.5 - 5.5 mmol/L LAB CHEMISTRY METHOD 06/15/2024 2:10 PM [facility] Chloride 102 96 - 110 mmol/L LAB CHEMISTRY METHOD 06/15/2024 2:10 PM [facility] CO2 34(H) 21 - 32 mmol/L LAB CHEMISTRY METHOD 06/15/2024 2:10 PM [facility] Anion Gap 4 3 - 11 LAB CHEMISTRY METHOD 06/15/2024 2:10 PM [facility] Glucose 95 70 - 100 mg/dL LAB CHEMISTRY METHOD 06/15/2024 2:10 PM [facility] BUN 29(H) 5 - 25 mg/dL LAB CHEMISTRY METHOD 06/15/2024 2:10 PM [facility] Creatinine 0.95 0.50 - 1.10 mg/dL LAB CHEMISTRY METHOD 06/15/2024 2:10 PM [facility] eGFR 60 >=60 mL/min/1. 73m2 LAB CHEMISTRY METHOD 06/15/2024 2:10 PM [facility] Comment:Calculation based on the Chronic Kidney Disease Epidemiology Collaboration (CKD-EPI) equation refit without adjustment for race. BUN/Creatinine Ratio 30.5 LAB CHEMISTRY METHOD 06/15/2024 2:10 PM [facility] Calcium 10.1 8.5 - 10.5 mg/dL LAB CHEMISTRY METHOD 06/15/2024 2:10 PM [facility] AST (SGOT) 35 10 - 42 unit/L LAB CHEMISTRY METHOD 06/15/2024 2:10 PM [facility] ALT (SGPT) 39 10 - 60 unit/L LAB CHEMISTRY METHOD 06/15/2024 2:10 PM [facility] Alkaline Phosphatase 83 42 - 121 unit/L LAB CHEMISTRY METHOD 06/15/2024 2:10 PM [facility] Total Protein 6.4 6.0 - 8.0 g/dL LAB CHEMISTRY METHOD 06/15/2024 2:10 PM [facility] Albumin 3.3 3.2 - 5.0 g/dL LAB CHEMISTRY METHOD 06/15/2024 2:10 PM [facility] Total Bilirubin 0.4 0.0 - 1.4 mg/dL LAB CHEMISTRY METHOD 06/15/2024 2:10 PM [facility] Blood Venous blood specimen / Unknown Venipuncture / Unknown 06/15/2024 1:26 PM EST 06/15/2024 1:32 PM EST us Jovana Cruz MD LAB BLOOD ORDERABLES Final Resul t [facility] [address] [place] [address], from Last 3 Months or Most Recently Relevant to Health Maintenance Insurance MEDICARE [facility] Advance Directives Documents on File Type Date Recorded Patient Cabinet Finisher Expl anation Health Care Decision (hx) 10/18/2013 [...] (hx) 10/04/2013 AD LACEY DIRECTIVE Care Teams Residency Coordinator Relationship Specialty Start Date End Date Caitlyn Bowie MD [address] [place] [address] PCP - General Internal Medicine 12/10/24
--- OUTSIDE RECORDS SUMMARY | 2025-02-18 15:24 | XMS_ITS | Clinical Summary ---
Author Organization [facility] Address [address] [place] [address] Care Team Providers Care Keno Manager Name Role Phone Caitlyn Bowie MD Primary Care Provider +1- [phone] Allergies Active Allergy Reactions Criticality Noted Date [...] Breath High 05/09/2008 Bronchospasm or Wheezing Ipratropium [place] Unknown/Patient and Family Unable to Define Medium [...] 1 capsule by mouth daily. Active B Pnqhxfc-B-Cjesz Acid (STRESS 500 B-COMPLEX PO) Take 1 [...] Type Department Care Team Description 11/22/2024 Telephone [facility] Neurology Sports [address] [phone] Yary Whitten DO from Last 3 Months [...] & B MEDICARE PART A & B [facility] Care Teams Keno Manager Relationship Specialty Start Date End Date Caitlyn Bowie MD [address] [place] [address] PCP - General Internal Medicine 03/20/23
--- OUTSIDE RECORDS SUMMARY | 2025-02-18 15:24 | XMS_ITS | Encounter Summary ---
Author Organization [facility] Address [address] [place] [address] Phone Care Team Providers Care Physician Coder Name Role Phone Caitlyn Bowie MD Primary Care Provider [phone]- [phone] Encounter Details Date Type Department Care Team (Late Contact Info) Description 12/10/2024 Documentation Only [facility] [address] [place] [address] Marina Abdi [address] [place] [address] Social History Tobacco Use Types [...] Visit [facility] [address] [place] [address] Rubén Ashraf MD [address] [place] [address] Dr[place] [address] documented as of this encounter Visit Diagnoses Not on filedocumented in this encounter Care Teams Physician Coder Relationship Specialty Start Date End Date Caitlyn Bowie MD [address] [place], [place] PCP - General Internal Medicine 09/24/24 documented as of this encounter
--- OUTSIDE RECORDS SUMMARY | 2025-02-18 15:24 | XMS_ITS | Patient Health Record ---
Author Organization [facility] Address [address] [place] [address] Care Team Providers Care Fluorescent Lighting Model Maker Name Role Phone Shruti Bowieberly Primary Care Provider Cristian Fountain Unavailable [phone] Allergies Allergen (clinical drug ingredient) Drug/Non Drug [...] Status W/U Status Risk Notes Problem Diverticulitis (181014455) Diverticulitis (K57.92) Active confirmed Problem Irritable bowel syndrome characterized by constipation (941360315) Irritable bowel syndrome with constipation (K58.9) Active confirmed Problem Gastroesophageal reflux disease (393877754) GERD (gastroesophageal reflux disease) (K21.9) Active confirmed Plan Of Treatment No Information Insurance Providers Payer Name Payer Address Payer Phone Subscriber Number Group Number Insured Name Patient Relationship to Insured Coverage Start Date Coverage End Date MEDICARE OF [place] [address] [place] [address] [id number] CINDA WATSON Self - patient is the insured MEDEX ATTN CLAIMS [address] [place] [address] [id number] CINDA WATSON Self - patient is the insured Medical (General) History Medical History History ICD Code WV-04/2021-sees Dr. Cadet--describes a negative cardiac cath Lung [...] a nd Antiphospholipid antibody--has had DVT's and PE's---[facility] at [facility] and Dr. Hogan at [facility]-has had EGD's with Dr. Gomes Pneumomias Hypothyroidism Surgical History Surgery Date(Month/Year) Tonsils and adenoids BOLA Lung cancer-Left lower lobectomy at [facility], XRT, Chemo 2008
--- OUTSIDE RECORDS SUMMARY | 2025-02-18 15:24 | XMS_ITS | Clinical Summary ---
Author Organization [facility] Address [address] [place] [address] Care Team Providers Care National Sales Director Name Role Phone Brennan Burnett MD Primary Care Provider [phone] Allergies Active Allergy Reactions Criticality Noted Date [...] age to complete this topic Care Teams National Sales Director Relationship Specialty Start Date End Date Brennan Burnett MD [address] [place] [address] PCP - General Internal Medicine 07/06/20
--- OUTSIDE RECORDS SUMMARY | 2025-02-18 15:25 | XMS_ITS | Clinical Summary ---
Author Organization [facility] Address [address] [place] [address] Care Team Providers Care Engineering Program Analyst Name Role Phone Caitlyn Bowie Primary Care [...] Throat tightness Throat tightness Throat tightness Ipratropium [place] Unknown Medium 12/18/2021 Isosorbide Mononitrate 11/23/2020 Other [...] topic Meningococcal Vaccine Aged Out No chavez acrmen eligible based on patient's age to complete this topic Insurance MEDICARE PART A & B [facility] Care Teams Engineering Program Analyst Relationship Specialty Start Date End Date Caitlyn Bowie [address] [place] [address] PCP - General Internal Medicine 07/18/22
--- OUTSIDE RECORDS SUMMARY | 2025-02-18 15:25 | XMS_ITS | Clinical Summary ---
Author Organization [facility] Address [address] [place] [phone] Phone Care Team Providers Care Control System Computer Scientist Name Role Phone Caitlyn Bowie [...] NEEDED FOR SHORTNESS OF BREATH OR WHEEZING 06/14/20 21 Active albuterol 2.5 mg /3 mL (0.083 %) nebulizer solution Inhale 1 vial into the lungs every 4 (four) hours as needed. 10/10/19 19 Active EPINEPHrine 0.3 mg/0.3 mL auto-injector USE DIRECTED FOR ANAPHYLAXIS THEN CALL 911 06/29/20 21 Active furosemide (LASIX) 40 MG tablet Take 80 mg by mouth 2 (two) times a day. 07/07/20 21 Active meclizine (ANTIVERT) 25 mg tablet TAKE ONE TABLET BY MOUTH THREE TIMES A DAY NEEDED FOR MOTION SICKNESS 08/20/19 22 Active metoprolol succinate (TOPROL-XL) 25 MG 24 hr tablet Take 25 mg by mouth 2 (two) times a day. 08/15/19 22 Active rosuvastatin (CRESTOR) 10 MG tabletIndications: M,W,F Take 20 mg by mouth 3 (three) times a week. Indications: M,W,F 06/22/20 21 Active traZODone (DESYREL) 50 MG tablet trazodone 50 mg tablet TAKE TWO TABLETS BY MOUTH EVERY DAY AT BEDTIME 01/30/20 19 Active warfarin (COUMADIN) 2 MG tablet Take [...] Activ e cyanocobalamin, vitamin B-12, (VITAMIN B12 ORAL)Indications:u nsure strength Take by mouth. Indications: unsure strength [...] 2 (two) times a day as needed. 09/25/19 22 Active docusate sodium (COLACE) 100 MG capsule Take 200 mg by mouth 2 (two) times a day. 07/03/20 21 Active fluticasone propion-salmeteroL (ADVAIR HFA) 230-21 mcg/actuation inhaler Inhale 2 puffs into the lungs 2 (two) times a day. Active multivit with minerals/lutein (MULTIVITAMIN 50 PLUS ORAL) Take 1 tablet by mouth daily. Active potassium chloride SA (KLOR-CON M) 20 MEQ ER tablet Take 20 mEq by mouth daily. Active predniSONE (DELTASONE) 5 MG tabletIndications: Adrenal insufficiency Take 1-3 tablets, for up to 3 days for acute illness 30 tablet 3 06/03/20 24 Active SYNTHROID 25 mcg tabletIndications: Acquired hypothyroidism TAKE 1 TABLET BY MOUTH FOR 5 DAYS OF THE WEEK, THEN TAKE 2 TABLETS BY MOUTH 2 DAYS OF THE WEEK. 114 tablet 3 01/23/20 25 Active SYNTHROID 25 mcg tabletIndications: Hypothyroidism TAKE 1 TABLET BY MOUTH FOR 5 DAYS OF THE WEEK, THEN TAKE 2 TABLETS BY MOUTH 2 DAYS OF THE WEEK. 114 tablet 01/14/20 25 025 Discontin ued(Reord er) Active Problems Problem Noted Date Diagnosed Date [...] (12/25/2021 4:22 PM EDT): Followed closely by reed man-Dr. Ronald Mills at [facility] hematology- advised to continue Coumadin anticoagulation at [...] (09/09/2021 10:42 PM EST): Followed closely by reed man-Dr. Ronald Mills at [facility] hematology- last seen on 08/05/2021 and advised [...] anticoagulation clinic to keep INR at 1.5-2.0. [facility] current use of systemic steroids 09/09 Assessment & Plan (12/10/2021 10:38 AM EDT): Carefully continue alternating low dosing as prescribed by her weasand trimmer and consider gentle taper when ready. Daily [...] alternating low dosing as prescribed by her weasand trimmer and consider gentle taper when ready. Daily [...] AM EDT Office Visit [facility] [address] [place] [id number] Anna Ellis MD Acquired hypothyroidism (Primary Dx); Hyperparathyroidism; Age-related osteoporosis without current pathological fracture; Adrenal insufficiency 01/12/2025 Refill [facility] [address] [place] [id number] Anna Ellis MD Medication Refill from Last 3 Months Immunizations Immunization Administration Dates Next Due Influenza, Unspecified Formulation 05/01/2009(Burdickd: Patient Decision) Pneumococcal polysaccharide PPSV23 05/01/2009(Pozo: Patient Decision) Social History Tobacco Use Types [...] 11:40 AM EST Office Visit [facility] [address] [place] [phone] Anna Ellis MD [address] [place] [id number] [email or web address] Health Maintenance Due Date Last Done Comments POTASSIUM LEVEL 1943 DEPRESSION SCREENING 1955 ZOSTER VACCINES (1 of 2) 1993 OSTEOPOROSIS SCREENING INITIAL (ONE-TIME) 2008 LIPID PANEL 03/18/2017 03/18/2016 RSV VACCINE (1 - 1-dose 75+ series) 2018 COVID-19 VACCINE (3 - season) 2024 09/03/2020, 08/06/2020 TSH LEVEL [...] MD LAB BLOOD ORDERABLES F inal Result [address] [phone] from Last 3 Months or Most Recently Relevant to Health Maintenance Insurance [place] [id number] [facility] MEDEX SUPPLEMENT HEALTH SAFETY NET [facility] MEDICARE PART A & B [facility] MEDEX SUPPLEMENT [facility] PART A & B [facility] MEDEX SUPPLEMENT HEALTH SAFETY [facility] MEDICARE PART A & B [facility] MEDEX SUPPLEMENT [employer] S[employer]ULL MEDICARE PART A & B [facility] MEDEX SUPPLEMENT HEALTH SAFETY [facility] MEDICARE PART A & B [facility] MEDEX SUPPLEMENT [facility] MEDICARE PART A & B [facility] MEDEX SUPPLEMENT [facility] NET FULL [facility] MEDICARE PART A & B Member Subscriber Plan / Payer (Ef fective 1999-Present) Name:Jovana Malik Member ID:[id number] Relation to Subscriber:Self Name:Jovana Malik Subscriber ID:[id number] Payer ID:[id number] Group ID:Not on file Type:Medicare Address: [facility] [employer] [facility] [address] [place] [address] [facility] MEDEX SUPPLEMENT [facility] NET FULL [facility] MEDICARE PART A & B [facility] MEDEX SUPPLEMENT [facility] SAFETY NET FULL [facility] Care Teams Control System Computer Scientist Relationship Specialty Start Date End Date Caitlyn Bowie MD [address] [place] [address] PCP - General Internal Medicine 09/09/21 Additional Source Comments The information contained in this document represents components of the legal health record. It is not the complete legal health record.[facility]
== END 2025-02-18 15:21 | disposition home or self-care (01) ==
LOC: HO.HPS 14:27
PROVIDERS: PCP Internal Medicine; Visit Provider Hospitalist
DX: J41.0 Simple chronic bronchitis (principal); J96.12 Chronic respiratory failure with hypercapnia; I27.20 Pulmonary hypertension, unspecified; R91.8 Other nonspecific abnormal finding of lung field; J96.11 Chronic respiratory failure with hypoxia; J70.1 Chronic and other pulmonary manifestations due to radiation; I50.32 Chronic diastolic (congestive) heart failure; C34.12 Malignant neoplasm of upper lobe, left bronchus or lung; J90 Pleural effusion, not elsewhere classified
CPT/HCPCS: 99215; G2211

== ENCOUNTER → 2025-02-18 14:26 | Outpatient (BNVA) | payer MEDICARE, SELFPAY | PROVIDERS: PCP Internal Medicine; Visit Provider Hospitalist | DX: J41.0 Simple chronic bronchitis (principal); J96.12 Chronic respiratory failure with hypercapnia; J96.11 Chronic respiratory failure with hypoxia; J70.1 Chronic and other pulmonary manifestations due to radiation; J90 Pleural effusion, not elsewhere classified; I27.20 Pulmonary hypertension, unspecified; I50.32 Chronic diastolic (congestive) heart failure; C34.12 Malignant neoplasm of upper lobe, left bronchus or lung; R91.8 Other nonspecific abnormal finding of lung field | CPT/HCPCS: 99212 ==

== ENCOUNTER 2025-02-28 11:23 | Emergency (ER) | payer MEDICARE, SELFPAY ==
--- NOTE | ~2025-02-28 | CT_ITS ---
EXAMINATION: CT ABDOMEN AND PELVIS WITH CONTRAST CLINICAL INFORMATION: Abdominal pain COMPARISON: November 03, 2024 TECHNIQUE: Multidetector volumetric images were obtained from the superior aspect of the liver through the pubic symphysis following administration 85 mL of Omnipaque 350 intravenous contrast. Sagittal and coronal reformatted images were obtained on the technologist's workstation. Oral contrast: No This CT examination was performed using dose optimization techniques as appropriate, variously including the following: *Automated exposure control *Adjustment of mA and/or kV according to patient size (this includes techniques or standardized protocols for targeted exams where dose is matched to indication/reason for exam; i.e. extremities or head) *Use of iterative reconstruction technique DLP: 413 mGY*cm FINDINGS: LUNG BASES: Chronic loculated pleural effusion is present on the left. Linear scarring in the posterior right lung base. A chronic pericardial effusion is also visible. LIVER, GALLBLADDER, AND BILIARY TREE: Liver enhancement is heterogeneous with a mosaic appearance. The gallbladder is unremarkable with no evidence of radiopaque gallstones, gallbladder wall thickening, or obvious pericholecystic inflammatory changes. PANCREAS: Unremarkable. SPLEEN: Unremarkable. ADRENAL GLANDS: Unremarkable. KIDNEYS AND URETERS: There is a 14 mm partially exophytic simple cyst involving superior pole left kidney. Cyst contains a few hairline thin septations. There is a cortically based simple cyst in the posterior upper left kidney 12 mm diameter.. BLADDER: Unremarkable. GASTROINTESTINAL TRACT: Numerous pseudodiverticula are present in the descending and sigmoid colon. There is no wall thickening or adjacent fat stranding. ABDOMINAL WALL: No significant hernia is appreciated. LYMPH NODES: Normal. VASCULAR: Moderate vascular calcifications are present. PELVIC VISCERA: Unremarkable. OSSEOUS STRUCTURES: There is grade 1 anterolisthesis at L3-4 with facet osteophytes and joint space narrowing. There is vacuum phenomenon at L3-4, L4-5, and L5-S1. There are benign bone islands in the right hemipelvis. CT/CT abdomen pelvis w IV con IMPRESSION: Diverticulosis without evidence of infection. Bosniak 2 left renal cyst requires no further follow-up. Chronic small to moderate loculated left pleural effusion and pericardial effusion. Fleischner guidelines were followed. Electronically signed by: Roddy Agosto MD 02/28/2025 04:52 PM EDT
[2025-02-28 11:33] VITALS: BP 122/71; BP 136/72; PULSE 76; PULSE 80; RESP 16; TEMP 37.1; O2SAT 97; O2SAT 99; BMI 21.9
[2025-02-28 11:43] VITALS: BP 122/71; PULSE 76; RESP 16; TEMP 37.1; O2SAT 97
--- NOTE | 2025-02-28 11:47 | PC.NURSE ---
BIBA from home. Patient c/o of LLQ pain rated 8/10 non radiating pain. +bowel sounds tender in left quadrants. Patient reports going to [facility] on Monday and being diagnosed with diverticulitis and was started on cipro but patient has allergy to cipro and has stop taking ABT at this time and was prescribed amoxicillin and has completed 2 of 7 days. 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 Patient titrated to RA 93% denies SOB/WOB
--- NOTE | 2025-02-28 11:52 | ED.GENADULT ---
HPI - General Adult General Chief complaint: Abdominal Pain Stated complaint: DISTENDED ABDOMEN PER EMS Time Seen by Provider: 02/28/25 11:51 Source: patient and EMS Mode of arrival: EMS Limitations: no limitations History of Present Illness ED Provider: Suri Lloyd PA-C HPI narrative: Patient is am 79 year old assigned female at with a history of diverticulitis (diagnosed 2 days ago at [facility]), COPD, KANDY, anemia, CRPS, NSTEMI, CAD, CHF, mitral valve regurgitation, SVT, subarachnoid bleed, on chronic anti-coagulation medication (Warfarin/Coumadin) presenting to the emergency department today with left lower abdominal pain. Patient states that she was diagnosed with diverticulitis at [facility] 2 days ago and given ciprofloxacin however, the patient states that she is allergic to ciprofloxacin. Patient states that she contacted her PCP who changed her to Augmentin and she has been taking it for the last 2 days as directed. Patient states that the abdominal pain was getting better but now it has returned and feels worse. Patient states that she did eat rice yesterday. Patient states that she has not had a bowel movement in 3 days. Patient states that she is comfortable being admitted to the hospital but she would not like to be taken care of / seen by Dr. Baker because the last time she was admitted, she did not agree with that doctors documentation of events or recommendation of treatment regimen. Patient denies any dizziness, lightheadedness, nausea, vomiting, fever, chills, chest pain, or shortness of breath. Patient does state that she has a history of optic neuritis and is having some intermittent blurry vision for which she had a negative head CT at [facility] 2 days ago but she is still having the intermittent blurry vision. Related Data Home Medications ?Medication ?Instructions ?Recorded ?Confirmed CPAP (CPAP Machine/Device) 06/30/22 11/11/24 Oxygen Home Use 06/30/22 11/11/24 nebulizers 06/30/22 11/11/24 epinephrine 0.3 mg/0.3 mL 0.3 mg IM USEASDIRECTD PRN 07/14/22 01/16/25 injection, auto-injector Allergic Reaction levothyroxine 25 mcg tablet 50 mcg PO SUSA@0600 01/05/24 01/16/25 (Synthroid) docusate sodium 100 mg capsule 100 mg PO BID 01/14/24 01/16/25 diazepam 5 mg tablet 2.5 mg PO BID PRN anxiety 11/21/24 01/16/25 chlorhexidine gluconate 0.12 % 10 ml PO BID 01/16/25 01/16/25 mouthwash ferrous gluconate 324 mg (38 mg 324 mg PO QAM 01/16/25 01/16/25 iron) tablet folic acid 1 mg tablet 1 mg PO DAILY 01/16/25 01/16/25 levothyroxine 25 mcg tablet 25 mcg PO MOTUWETHFR@0600 01/16/25 01/16/25 (Synthroid) rosuvastatin 10 mg tablet 10 mg PO MOWEFR@2100 01/16/25 01/16/25 warfarin 1 mg tablet (Jantoven) mg PO DAILY 01/16/25 potassium chloride 20 mEq oral 40 meq PO DAILY 02/10/25 packet prednisone 10 mg tablet 10 mg PO DIRECTED 02/18/25 Previous Rx's ?Medication ?Instructions ?Recorded simethicone 80 mg chewable tablet 80 mg PO QIDWMHS #20 tabs 02/04/24 (Gas Relief (simethicone)) Advair HFA 230 mcg-21 2 puff inhalation BID 90 days #36 03/13/24 mcg/actuation aerosol inhaler grams (fluticasone propion-salmeterol) furosemide 40 mg tablet 80 mg (2 x 40 mg) PO BID #360 tabs 05/01/24 metoprolol succinate 50 mg 50 mg PO BID #180 tabs 05/10/24 tablet,extended release 24 hr (Toprol XL) levocetirizine 5 mg tablet 5 mg PO DAILY 90 days #90 tabs 05/23/24 trazodone 50 mg tablet 100 mg (2 x 50 mg) PO BEDTIME #180 07/01/24 tabs meclizine 25 mg tablet 25 mg PO Q8H PRN dizziness 10 days 07/22/24 #30 tabs montelukast 10 mg tablet 10 mg PO DAILY #90 tabs 08/24/24 albuterol sulfate 90 mcg/actuation 2 inh inhalation Q6H PRN shortness 11/05/24 aerosol inhaler of breath or wheezing 90 days #3 ea fluticasone propionate 50 2 spray intranasal DAILY 90 days 11/05/24 mcg/actuation nasal #3 ea spray,suspension aspirin 81 mg tablet 81 mg PO DAILY #30 tabs 01/16/25 nitroglycerin 0.4 mg sublingual 0.4 mg sublingual Q5MX3 PRN Chest 01/16/25 tablet (Nitrostat) Pain 30 days #30 tabs cefuroxime axetil 250 mg tablet 250 mg PO Q12H 5 days #10 tabs 02/10/25 doxycycline monohydrate 100 mg 100 mg PO BID 5 days #10 caps 02/10/25 capsule Allergies Allergy/AdvReac Type Severity Reaction Status Date / Time morphine Allergy Severe Itching Verified 02/28/25 11:35 avocado (AVOCADO) Allergy Mild ITCHY Verified 02/28/25 11:35 THROAT, RASH azithromycin (AZITHROMYCIN) Allergy Mild ITCHY Verified 02/28/25 11:35 THROAT, RASH barium iodide (BARIUM IODIDE) Allergy Mild ITCHY Verified 02/28/25 11:35 THROAT, RASH barium sulfate Allergy Mild Itch Verified 02/28/25 11:35 bee pollen (BEE STINGS) Allergy Mild ITCHY Verified 02/28/25 11:35 THROAT, RASH ciprofloxacin (From CIPRO) Allergy Mild ITCHY Verified 02/28/25 11:35 THROAT, RASH clarithromycin (From BIAXIN) Allergy Mild ITCHY Verified 02/28/25 11:35 THROAT, RASH diatrizoate meglumine (From Allergy Mild ITCHY Verified 02/28/25 11:35 GASTROGRAFIN) THROAT, RASH diatrizoate sodium (From Allergy Mild ITCHY Verified 02/28/25 11:35 GASTROGRAFIN) THROAT, RASH diclofenac (From VOLTAREN) Allergy Mild ITCHY Verified 02/28/25 11:35 THROAT, RASH erythromycin base Allergy Mild ITCHY Verified 02/28/25 11:35 (ERYTHROMYCIN BASE) THROAT, RASH gentamicin (GENTAMICIN) Allergy Mild ITCHY Verified 02/28/25 11:35 THROAT, RASH Iodinated Contrast Media Allergy Mild ITCHY Verified 02/28/25 11:35 (IVP DYE) THROAT, RASH levofloxacin (From LEVAQUIN) Allergy Mild ITCHY Verified 02/28/25 11:35 THROAT, RASH metronidazole (From FLAGYL) Allergy Mild ITCHY Verified 02/28/25 11:35 THROAT, RASH moxifloxacin (From AVELOX) Allergy Mild ITCHY Verified 02/28/25 11:35 THROAT, RASH Penicillins (PENICILLINS) Allergy Mild ITCHY Verified 02/28/25 11:35 THROAT, RASH shrimp (SHRIMP) Allergy Mild ITCHY Verified 02/28/25 11:35 THROAT, RASH Sulfa (Sulfonamide Allergy Mild ITCHY Verified 02/28/25 11:35 Antibiotics) (SULFA THROAT, (SULFONAMIDE ANTIBIOTICS)) RASH vancomycin (VANCOMYCIN) Allergy Mild ITCHY Verified 02/28/25 11:35 THROAT, RASH clindamycin AdvReac Intermediate Unknown Verified 02/28/25 11:35 Review of Systems Constitutional: Constitutional: Reports as per HPI Eyes: Eyes: Reports as per HPI ENT: Reports as per HPI Cardiovascular: Cardiovascular: Reports as per HPI Respiratory: Respiratory: Reports as per HPI Gastrointestinal: Gastrointestinal: Reports as per HPI Genitourinary: Genitourinary: Reports as per HPI Musculoskeletal: Musculoskeletal: Reports as per HPI Integumentary/Breasts: Skin/Breast: Reports as per HPI Neurologic: Reports as per HPI Psychiatric: Psychiatric: Reports as per HPI Endocrine: Endocrine: Reports as per HPI Hematologic/Lymphatic: Hematologic/Lymphatic: Reports as per HPI Allergic/Immunologic: Allergic/Immunologic: Reports as per HPI [facility] Past Medical History Attestation statement: The following information was validated with the patient. Source: old records reviewed and nursing notes reviewed Medical History Chest pain Chest pain Ankle pain Chronic hypercapnic respiratory failure KANDY treated with BiPAP COPD (chronic obstructive pulmonary disease) Open wound Warfarin anticoagulation Complex sleep apnea syndrome Leg pain Anemia Tachycardia DVT (deep venous thrombosis) Compression fracture of body of thoracic vertebra ASD (atrial septal defect) Pleuritic chest pain History of COVID-19 Chronic anticoagulation Hypothyroidism GERD (gastroesophageal reflux disease) Hyperlipidemia Hypertension Factor 5 Leiden mutation, heterozygous History of non-ST elevation myocardial infarction (NSTEMI) Hypoxia Anxiety PTSD (post-traumatic stress disorder) Hemoptysis Dyspnea Tracheobronchitis CLARA positive Diverticulitis Allergic bronchitis (HFpEF) heart failure with preserved ejection fraction Subarachnoid bleed Insomnia Anti-phospholipid antibody syndrome Hypogammaglobulinemia Chronic respiratory failure Arterial insufficiency of lower extremity Complex regional pain syndrome i of right lower limb Post herpetic neuralgia Pulmonary hypertension Pericardial effusion Pulmonary emboli Pleural effusion Radiation fibrosis of lung Pneumonitis Pulmonary nodules Lung cancer Surgical History History of colonoscopy History of lung surgery History of tonsillectomy History of hysterectomy S/P mitral valve clip implantation History of cardiac cath Family History Family History Sister No problems noted. Mother Cardiovascular disease Daughter Tachycardia Other KANDY (obstructive sleep apnea) Social History Social History Household Members: Other Housing: [facility] Do you presently have visiting nurse or other home services: Yes (at home had [employer] that came to visit her) Unable to assess alcohol history related to: Unknown Alcohol intake: never Comment: stand by assist with ambulation Patient Tobacco Use Status: Never used Tobacco Smoked in Last 30 Days: No Second Hand Smoke Exposure: No Use of substances other than those prescribed or required for medical reasons: No Advance Directives: Yes Advance Directives on File: Yes Advance Directives Date on File: 06/15/22 Do you have a plan to hurt others: No Plan service: No Current occupational status: retired Physical Exam ED Vital Signs: Vital Signs - 24 hr 02/28/25 11:33 02/28/25 11:43 02/28/25 13:34 Temperature 98.7 F 98.7 F Pulse Rate 76 76 66 Respiratory Rate 16 16 18 Blood Pressure 122/71 122/71 119/50 L Pulse Oximetry 97 97 100 Oxygen Delivery Method Nasal Cannula Nasal Cannula Nasal Cannula Oxygen Flow Rate 2 02/28/25 16:12 Temperature 98.7 F Pulse Rate 78 Respiratory Rate 18 Blood Pressure 117/58 L Pulse Oximetry 98 Oxygen Delivery Method Room Air Oxygen Flow Rate BMI result Body Mass Index 21.9 Const General: cooperative, no acute distress, alert and awake Nutritional Appearance: well nourished Orientation/consciousness: patient oriented x3 HENMT Head: Yes normal to inspection and Yes atraumatic Ears: hearing grossly normal bilaterally and external ears normal General nose exam: Normal external nose present, no nasal discharge noted and no epistaxis Face and sinus: Yes normal facial exam, No abrasion and No laceration Mouth: Normal oral and palatal mucosa present, no drooling and no muffled voice Eyes General: appearance normal, both eyes and all related structures Periorbital: periorbital findings normal Eyelids: Yes eyelids normal Conjunctivae: conjunctivae normal Pupils: Equal, round and reactive pupils present EOM: EOMs intact bilaterally Neck Neck: Yes normal visual inspection and Yes full ROM Resp Other: chronically on oxygen via nasal cannula however - patient had cannula around her chin upon my arrival in the room for examination Effort & Inspection: normal respiratory effort and able to speak in complete sentences GI Other: patient pressing on her own abdomen while we were conversing without any incident Neuro General: patient oriented x3, moves all extremities and CN's II-XI intact bilaterally Cranial nerves: Yes Equal, round and reactive pupils present Cognition (Neuro): normal cognition Extrem General: Yes normal to inspection, Yes full ROM and Yes capillary refill normal Psych Appearance: grossly normal Mental Status: mental status grossly normal Affect: normal affect Attitude: cooperative Thought process: Normal thought process present Thought content: Normal thought content present Insight: Good insight present (Psych) Medications Administered Discontinued Medications Generic Name Dose Route Start Last Admin Trade Name Freq PRN Reason Stop Dose Admin Diphenhydramine HCl 25 mg 02/28/25 12:18 02/28/25 16:19 Diphenhydramine Hcl 50 Mg/Ml Vial IVPUSH 02/28/25 12:19 25 mg ONCE ONE Administration Hydromorphone HCl 0.5 mg 02/28/25 11:52 02/28/25 13:23 Hydromorphone Hcl 0.5 Mg/0.5 Ml Syringe IVPUSH 02/28/25 11:53 Not Given ONCE ONE Protocol Potassium Chloride 10 meq in 100 mls @ 100 mls/hr 02/28/25 14:15 02/28/25 14:47 Potassium Chloride/H20 IV 02/28/25 18:14 100 mls/hr Q1H MATHEW Administration Iohexol 100 ml 02/28/25 16:29 02/28/25 16:33 Iohexol 350 Mg/Ml 100 Ml Infus..Btl IV 02/28/25 16:30 85 ml ONCE ONE Administration Methylprednisolone Sodium Succinate 60 mg 02/28/25 12:18 02/28/25 14:13 Methylprednisolone Sod Succ 125 Mg/2 Ml Vial IVPUSH 02/28/25 12:19 60 mg ONCE ONE Administration Ondansetron HCl 4 mg 02/28/25 11:52 02/28/25 13:23 Ondansetron Hcl 4 Mg/2 Ml Vial IVPUSH 02/28/25 11:53 Not Given ONCE ONE Medical Decision Making Medical Decision Making [facility] Narrative: Patient is am 79 year old assigned female at with a history of diverticulitis (diagnosed 2 days ago at [facility]), COPD, KANDY, anemia, CRPS, NSTEMI, CAD, CHF, mitral valve regurgitation, SVT, subarachnoid bleed, on chronic anti-coagulation medication (Warfarin/Coumadin) presenting to the emergency department today with left lower abdominal pain. Patient's physical exam was as noted in the physical exam portion of this note. Patient's blood work showed a chronically elevated WBC count of 11.9 and a hypokalemia of 3.2. Patient's blood work was otherwise unremarkable. Patient's urine showed no acute process. Patient's CT abd/pelvis showed no acute process. Note: patient was pre-medicated with solu-medrol + benadryl before her CT scan with contrast dye. Scan and dye injection went without incident / issue. I explained my physical exam findings as well as all test results to the patient. I answered all questions asked by the patient. Patient received a small dose of IV potassium which was discontinued and patient was given PO potassium instead. I attempted to give the patient pain medication however, she declined. Patient's clinical presentation is most consistent with resolved / resolving diverticulitis. I recommended the patient finish her antibiotics that were prescribed by [facility] previously. I stressed the importance of the patient taking her medication as directed (either prescribed or as the over the counter packaging recommends). I stressed the importance of the patient following up with her primary care provider. I stressed the importance of the patient returning to the emergency department immediately if her symptoms were to worsen or if she were to develop any dizziness, shortness of breath, difficulty breathing, chest pain, blurry vision, loss of vision, nausea, vomiting, abdominal pain, fever, chills, back pain, or any other complaints. Patient verbalized agreement and understanding with this treatment plan and discharge. Differential Diagnosis Differential Diagnoses: The differential diagnosis associated with the presentation includes Abdominal pain Hypokalemia Diverticulosis Diverticulitis Admission/Observation Consideration of admission/observation: Escalation of care including admission/observation considered Patient would have been admitted to the hospital had her work up had any findings where hospital admission was appropriate and her clinical presentation warranted hospital admission. Lab Data [facility] Lab Attestation statement: I reviewed the patient's lab results. My interpretation of these results are in the MDM Rationale portion of this note. 02/28/25 13:33 02/28/25 13:33 Labs: Lab Results 02/28/25 02/28/25 Range/Units 13:33 15:54 WBC 11.9 H (4.8-10.8) X10*3/uL RBC 3.40 L (4.20-5.50) X10*6/uL Hgb 11.5 L (12.0-16.0) g/dl Hct 34.0 L (37.0-47.0) % MCV 100.0 H (80.0-98.0) fL MCH 33.8 H (27.0-33.0) pg MCHC 33.8 (31.0-35.0) g/dl RDW 13.6 (11.0-16.0) % Plt Count 221 (160-400) X10*3/uL MPV 10.9 (9.4-12.3) fL Immature Gran % (Auto) 0.9 H (0.0-0.4) % Neut % (Auto) 83.3 H (45-73) % Lymph % (Auto) 7.1 L (20-40) % Stearns % (Auto) 7.9 (2-11) % Eos % (Auto) 0.4 (0-4) % Baso % (Auto) 0.4 (0-2) % Lymph # (Auto) 0.9 L (1.2-4.9) X10*3/uL Stearns # (Auto) 0.9 (0.1-1.2) X10*3/uL Eos # (Auto) 0.1 (0.0-0.4) X10*3/uL Baso # (Auto) 0.1 (0.0-0.2) X10*3/uL Abs Immat Gran (auto) 0.11 H (0.00-0.03) X10*3/uL Absolute Neuts (auto) 9.9 H (2.0-8.3) x10*3/uL Absolute Nucleated RBC 0.000 (0.0-0.012) X10*3/uL Nucleated RBC % (auto) 0.0 (0.0-0.2) /100WBC PT 26.6 H D (10.9-12.4) SEC INR 2.3 H (0.9-1.1) Sodium 140 (135-145) mmol/L Potassium 3.2 L D (3.3-5.1) mmol/L Chloride 100 (96-108) mmol/L Carbon Dioxide 28 (22-29) mmol/L Anion Gap 15 (12-20) BUN 17 H (9-16) mg/dL Creatinine 0.79 (0.5-1.4) mg/dL Estim Creat Clear Calc 52.3 Estimated GFR > 60 Random Glucose 107 (60-115) mg/dL Calcium 9.7 D (8.4-10.2) mg/dL Magnesium 2.3 (1.6-2.6) mg/dL Total Bilirubin 0.7 (0.0-1.0) mg/dL AST 40 H (5-31) U/L ALT 20 (0-31) U/L Alkaline Phosphatase 63 (39-117) U/L Total Protein 7.0 (6.5-8.0) g/dL Albumin 3.8 (3.5-5.0) g/dL Urine Color Yellow Urine Appearance Clear Urine pH 7.5 (5.0-9.0) Ur Specific Rolla 1.010 (1.005-1.025) Urine Protein Negative (Neg-Trace) mg/dL Urine Glucose (UA) Negative (Negative) mg/dL Urine Ketones Negative (Negative) mg/dL Urine Blood Negative (Negative) Urine Nitrite Negative (Negative) Ur Leukocyte Esterase Negative (Negative) Independent Interpretation I performed an independent interpretation of an: CT Scan Interpretation: My interpretation is in agreement with the radiologist's impression of this imaging study. Report Number: [id number]: Total DLP = 413.00 mGy-cm EXAMINATION: CT ABDOMEN AND PELVIS WITH CONTRAST CLINICAL INFORMATION: Abdominal pain COMPARISON: November 03, 2024 TECHNIQUE: Multidetector volumetric images were obtained from the superior aspect of the liver through the pubic symphysis following administration 85 mL of Omnipaque 350 intravenous contrast. Sagittal and coronal reformatted images were obtained on the technologist's workstation. Oral contrast: No This CT examination was performed using dose optimization techniques as appropriate, variously including the following: *Automated exposure control *Adjustment of mA and/or kV according to patient size (this includes techniques or standardized protocols for targeted exams where dose is matched to indication/reason for exam; i.e. extremities or head) *Use of iterative reconstruction technique DLP: 413 mGY*cm FINDINGS: LUNG BASES: Chronic loculated pleural effusion is present on the left. Linear scarring in the posterior right lung base. A chronic pericardial effusion is also visible. LIVER, GALLBLADDER, AND BILIARY TREE: Liver enhancement is heterogeneous with a mosaic appearance. The gallbladder is unremarkable with no evidence of radiopaque gallstones, gallbladder wall thickening, or obvious pericholecystic inflammatory changes. PANCREAS: Unremarkable. SPLEEN: Unremarkable. ADRENAL GLANDS: Unremarkable. KIDNEYS AND URETERS: There is a 14 mm partially exophytic simple cyst involving superior pole left kidney. Cyst contains a few hairline thin septations. There is a cortically based simple cyst in the posterior upper left kidney 12 mm diameter.. BLADDER: Unremarkable. GASTROINTESTINAL TRACT: Numerous pseudodiverticula are present in the descending and sigmoid colon. There is no wall thickening or adjacent fat stranding. ABDOMINAL WALL: No significant hernia is appreciated. LYMPH NODES: Normal. VASCULAR: Moderate vascular calcifications are present. PELVIC VISCERA: Unremarkable. OSSEOUS STRUCTURES: There is grade 1 anterolisthesis at L3-4 with facet osteophytes and joint space narrowing. There is vacuum phenomenon at L3-4, L4-5, and L5-S1. There are benign bone islands in the right hemipelvis. CT/CT abdomen pelvis w IV con IMPRESSION: Diverticulosis without evidence of infection. Bosniak 2 left renal cyst requires no further follow-up. Chronic small to moderate loculated left pleural effusion and pericardial effusion. Fleischner guidelines were followed. Electronically signed by: Roddy Agosto MD 02/28/2025 04:52 PM EDT Dictated By: Roddy Agosto MD Signed By: Electronically signed by Roddy Agosto MD 02/28/25 9017 Radiology Impression Discussion of test interpretation with radiology: I have reviewed the radiologist's reading. Independent Historian Clinical information obtained from an independent historian. History obtained from or confirmed by: EMS (EMS provided additional history and confirmed the history provided by the patient. ) Prescription Management I considered prescription management with: Antibiotic (patient is already prescribed an antibiotic for her previous diverticulitis infection which I recommended she continue) Critical Care Time Critical Care Time Critical Care Time: Yes Total Critical Care Time: 48 Attestation: I spent 48 minutes of Critical Care Time with this patient. This does not include time spent on separately reported billable procedures. Discharge Plan Discharge Clinical Impression: Diverticulosis, Chronic hypokalemia Patient Disposition: Home, Self-Care Instructions: Diverticulosis (DC), Potassium Content of Foods List (ED), Hypokalemia (ED) Additional Instructions: Your CT scan of the abodmen pelvis showed diverticulosis WITHOUT evidence of infection. However, given the other facility has started you on an antibiotic - you should finish it as previously prescribed. Your potassium was low today (3.2) - you should eat potassium rich foods and follow up with your PCP about this. IF you are prescribed home medications and/or you are taking over the counter medications at home - it is very important you continue to do so as prescribed / directed unless told otherwise. Follow up with a primary care provider. Return to the emergency department immediately if your symptoms worsen or if you develop any numbness, tingling, dizziness, shortness of breath, difficulty breathing, chest pain, blurry vision, loss of vision, nausea, vomiting, abdominal pain, fever, chills, back pain, or any other complaints. If you do not have a primary care provider - call any of the below numbers to establish and follow up with a primary care provider. [facility] ([place]) [phone] [place] [address], [address] [facility] ([facility]) [phone] [place] [address], [address] [facility], [address] [facility] ([address] [place]) [phone] [place] [address], [address] [facility], [address] [facility] Primary Care ([place]) [phone] [place] [address] [address] [facility], [address] [facility] Family Medicine [phone] [place] [address], [address] Please see the information below about our Patient Portal. If you are not yet enrolled in the [facility] Patient Portal, you will receive an enrollment email invitation following your visit to any [facility] care setting. You may also self-enroll in the Patient Portal by visiting our website: [email or web address] The following information is required to access the Patient Portal: - Your [facility] Medical Record Number - Your personal home email address (must match what is in your electronic medical record, Registration staff can assist with this) - Name - Date of Capabilities of the Patient Portal: - Message some providers - View upcoming appointments - Access your health summary, medical history, and visit history - View current conditions and allergies - View procedure and lab results - View your medications, including guidelines, side effects, and precautions - Complete pre-appointment questionnaires requested by your provider - Ready summary reports of your office visits and procedures To access the Patient Portal Mobile [employer], follow these directions: - Search [email or web address] in the [employer] Store or [employer] Store - Download the [facility] - Search for [facility] - Enter your login/password Prescriptions: No Action Advair HFA 230-21 mcg/actuation HFA aerosol inhaler 2 puff inhalation BID 90 Days Qty: 36 4RF furosemide 40 mg tablet 80 mg PO BID Qty: 360 3RF metoprolol succinate [Toprol XL] 50 mg tablet extended release 24 hr 50 mg PO BID Qty: 180 3RF levocetirizine 5 mg tablet 5 mg PO DAILY 90 Days Qty: 90 3RF trazodone 50 mg tablet 100 mg PO BEDTIME Qty: 180 3RF meclizine 25 mg tablet 25 mg PO Q8H PRN (Reason: dizziness) 10 Days Qty: 30 0RF montelukast 10 mg tablet 10 mg PO DAILY Qty: 90 3RF albuterol sulfate 90 mcg/actuation HFA aerosol inhaler 2 inh inhalation Q6H PRN (Reason: shortness of breath or wheezing) 90 Days Qty: 3 3RF fluticasone propionate 50 mcg/actuation spray,suspension 2 spray intranasal DAILY 90 Days Qty: 3 3RF potassium chloride 20 mEq packet 40 meq PO DAILY levothyroxine [Synthroid] 25 mcg Tablet 50 mcg PO SUSA@0600 docusate sodium 100 mg Capsule 100 mg PO BID simethicone [Gas Relief (simethicone)] 80 mg Tablet,Chewable 80 mg PO QIDWMHS Qty: 20 0RF levothyroxine [Synthroid] 25 mcg tablet 25 mcg PO MOTUWETHFR@0600 folic acid 1 mg tablet 1 mg PO DAILY chlorhexidine gluconate 0.12 % mouthwash 10 ml PO BID rosuvastatin 10 mg tablet 10 mg PO MOWEFR@2100 warfarin [Jantoven] 1 mg tablet PO DAILY ferrous gluconate 324 mg (38 mg iron) tablet 324 mg PO QAM nitroglycerin [Nitrostat] 0.4 mg Tablet, Sublingual 0.4 mg sublingual Q5MX3 PRN (Reason: Chest Pain) 30 Days Qty: 30 0RF aspirin 81 mg tablet 81 mg PO DAILY Qty: 30 3RF cefuroxime axetil 250 mg tablet 250 mg PO Q12H 5 Days Qty: 10 0RF doxycycline monohydrate 100 mg capsule 100 mg PO BID 5 Days Qty: 10 0RF (DME) nebulizers Misc See Rx Instructions .Route Rx Instructions: As directed (DME) CPAP Machine/Device Device See Rx Instructions .Route Rx Instructions: As directed (DME) Oxygen Home Use Kit See Rx Instructions .Route Rx Instructions: As directed epinephrine 0.3 mg/0.3 mL auto-injector 0.3 mg IM USEASDIRECTD PRN (Reason: Allergic Reaction) diazepam 5 mg tablet 2.5 mg PO BID PRN (Reason: anxiety) prednisone 10 mg tablet 10 mg PO DIRECTED Rx Instructions: see taper instructions Print Language: Panamanian
--- NOTE | 2025-02-28 13:13 | PC.NURSE ---
pt refused the diulated, states that her pain is not that bad and really does not want narcotics, provider aware pt is also concern about her reaction to iv contrast even with pre-medications as discussed with the provider, provider back to the bedside to talk about the ct scan, pt agreed to have the scan done
--- NOTE | 2025-02-28 13:25 | PC.NURSE ---
Awaiting lab results before administering prophylactic solumedrol for contrast in CT scan.
[2025-02-28 13:34] VITALS: BP 119/50; PULSE 66; RESP 18; O2SAT 100
[2025-02-28 13:41] LABS: MANUAL DIFF FLAG NO
[2025-02-28 13:42] LABS: Hematocrit 34.0 % (37.0-47.0); Hemoglobin 11.5 g/dl (12.0-16.0); Imm Gran Abs Auto 0.11 X10*3/uL (0.00-0.03); Imm Gran Pct Auto 0.9 % (0.0-0.4); Lymphocytes Absolute Auto 0.9 X10*3/uL (1.2-4.9); Mean Corpuscular HGB Conc 33.8 g/dl (31.0-35.0); Mean Corpuscular Hemoglobin 33.8 pg (27.0-33.0); Mean Corpuscular Volume 100.0 fL (80.0-98.0); NRBC Abs Auto 0.000 X10*3/uL (0.0-0.012); NRBC Pct Auto 0.0 /100WBC (0.0-0.2); Platelet Count 221 X10*3/uL (160-400); Red Blood Count 3.40 X10*6/uL (4.20-5.50); White Blood Count 11.9 X10*3/uL (4.8-10.8)
[2025-02-28 13:47] LABS: INTERNATIONAL NORM RATIO 2.3 (0.9-1.1); Prothrombin Time 26.6 SEC (10.9-12.4)
[2025-02-28 14:04] LABS: Alanine Aminotransferase 20 U/L (0-31); Albumin Level 3.8 g/dL (3.5-5.0); Alkaline Phosphatase 63 U/L (39-117); Anion Gap 15 (12-20); Aspartate Amino Transferase 40 U/L (5-31); Blood Urea Nitrogen 17 mg/dL (9-16); Calcium 9.7 mg/dL (8.4-10.2); Carbon Dioxide 28 mmol/L (22-29); Chloride 100 mmol/L (96-108); Creatinine Clr Calc Pharmacy 52.3; Estimated Glomerular Filt Rate > 60; Magnesium 2.3 mg/dL (1.6-2.6); Potassium 3.2 mmol/L (3.3-5.1); Sodium 140 mmol/L (135-145); Total Protein 7.0 g/dL (6.5-8.0)
--- NOTE | 2025-02-28 14:18 | PC.NURSE ---
Confirmed scan time w/CT. Benadryl to be administered @ 1713, scan @ 1813.
[2025-02-28] MEDS: Potassium Chloride/H20 10 MEQ/100 ML PIGGYBACK 100 MEQ IV (14:47)
[2025-02-28 16:02] LABS: Appearance Urine Clear; Glucose Urine UA Negative (Negative); PH 7.5 (5.0-9.0); Specific Gravity - Urine 1.010 (1.005-1.025)
[2025-02-28 16:12] VITALS: BP 117/58; PULSE 78; RESP 18; TEMP 37.1; O2SAT 98
--- NOTE | 2025-02-28 16:22 | PC.NURSE ---
EMELIA Vidal approved pt to go to CT scan at this time after Benadryl gv; pt aware
[2025-02-28] MEDS: iohexoL 350 MG/ML 100 ML INFUS..BTL IV (16:33)
[2025-02-28] MEDS: Potassium Chloride Packet 20 MEQ PACKET 40 MEQ PO (17:33)
[2025-02-28] MEDS: Potassium Chloride ER 20 MEQ TAB.ER.PRT PO (17:33)
--- NOTE | 2025-02-28 17:39 | PC.NURSE ---
Pt's initial IV KCL run at half-rate secondary to c/o burning at IV site; pt tolerated 1 bag of KCL per orders; EMELIA DC'd remaining 3 bags and PO KCL ordered/administered; vss
[2025-02-28 17:58] VITALS: BP 126/71; PULSE 88; RESP 16; TEMP 36.3; O2SAT 95
== END 2025-02-28 18:00 | disposition home or self-care (01) ==
PROVIDERS: Physician Assistant Medical; Emergency Provider Emergency Medicine
DX: R10.9 Unspecified abdominal pain (principal); K57.90 Diverticulosis of intestine, part unspecified, without perforation or abscess without bleeding; E87.6 Hypokalemia; I10 Essential (primary) hypertension; I50.9 Heart failure, unspecified; J44.9 Chronic obstructive pulmonary disease, unspecified; G47.33 Obstructive sleep apnea (adult) (pediatric); Z86.79 Personal history of other diseases of the circulatory system; Z79.899 Other long term (current) drug therapy; Z79.01 Long term (current) use of anticoagulants; Z87.19 Personal history of other diseases of the digestive system; Z87.09 Personal history of other diseases of the respiratory system
CPT/HCPCS: 36415; 74177; 80053; 81003; 83735; 85025; 85610; 96374; 96375; 99284; J1200; J2919; J3480; Q9967

== ENCOUNTER → 2025-02-28 12:18 | Outpatient (BNV) | payer MEDICARE, SELFPAY | PROVIDERS: Visit Provider Radiology Diagnostic Radiology | DX: K57.90 Diverticulosis of intestine, part unspecified, without perforation or abscess without bleeding (principal); J90 Pleural effusion, not elsewhere classified; I31.39 Other pericardial effusion (noninflammatory); N28.1 Cyst of kidney, acquired | CPT/HCPCS: 74177 ==

== ENCOUNTER 2025-03-02 10:01 | Emergency (ER) | payer MEDICARE, SELFPAY ==
[2025-03-02 10:05] VITALS: BP 127/61; PULSE 88; RESP 18; TEMP 36.7; O2SAT 95; BMI 22.4
--- OUTSIDE RECORDS SUMMARY | 2025-03-02 10:29 | XMS_ITS | Encounter Summary ---
Author Organization [facility] Address [address] [place] [address] Care Team Providers Care Seed Production Field Supervisor Name Role Phone Caitlyn Bowie MD Primary Care Provider [phone] Encounter Details Date Type Department Care Team (Late st Contact Info) Description 07/08/2020 Scanned Document [facility] Health Information Management [address] [place] [id number] External, Provider Social History Tobacco Use Types [facility] [address] [place], [place] [id number] Ronald Mills MD [address] [place] [address] [address] [place] [address] documented as of this encounter [...] as of this encounter Care Teams Seed Production Field Supervisor Relationship Specialty Start Date End Date Caitlyn Bowie MD [address] [address] PCP - General Internal Medicine 05/06/21 documented as of this encounter
--- OUTSIDE RECORDS SUMMARY | 2025-03-02 10:29 | XMS_ITS | Patient Health Record ---
Author Organization [facility] Address [address] [place] [address] Care Team Providers Care Rack Puncher Name Role Phone Shruti Bowieberly Primary Care Provider Cristian Fountain Unavailable [phone] Allergies Allergen (clinical drug ingredient) Drug/Non Drug [...] (substance) Sulfa Antibiotics Unknown Drug Allergy Active azithromycin zithromycin (uncoded) Unknown Allergy Active Bee Sting [...] some muscle relaxers (uncoded) Unknown Allergy Active Reason For Referral No [...] Status W/U Status Risk Notes Problem Diverticulitis (699475315) Diverticulitis (K57.92) Active confirmed Problem Irritable bowel syndrome characterized by constipation (547536981) Irritable bowel syndrome with constipation (K58.9) Active confirmed Problem Gastroesophageal reflux disease (353325794) GERD (gastroesophageal reflux disease) (K21.9) Active confirmed Plan Of Treatment No Information Insurance Providers Payer Name Payer Address Payer Phone Subscriber Number Group Number Insured Name Patient Relationship to Insured Coverage Start Date Coverage End Date MEDICARE OF [place] [address] [place] [address] [id number] CINDA WATSON Self - patient is the insured MEDEX ATTN CLAIMS [address] [place] [address] [id number] CINDA WATSON Self - patient is the insured Medical (General) History Medical History History ICD Code DE-04/2021-sees Dr. 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 Hogan at [facility]-has had EGD's with Dr. Gomes Pneumomias Hypothyroidism Surgical History Surgery Date(Month/Year) Tonsils and adenoids BOLA Lung cancer-Left lower lobectomy at [facility], XRT, Chemo 2008
--- OUTSIDE RECORDS SUMMARY | 2025-03-02 10:29 | XMS_ITS | Clinical Summary ---
Author Organization [facility] Address [address] [place] [address] Care Team Providers Care Leaf Blender Name Role Phone Brennan Burnett MD Primary Care Provider [phone] Allergies Active Allergy Reactions Criticality Noted Date [...] age to complete this topic Care Teams Leaf Blender Relationship Specialty Start Date End Date Brennan Burnett MD [address] [place] [address] PCP - General Internal Medicine 07/06/20
--- OUTSIDE RECORDS SUMMARY | 2025-03-02 10:29 | XMS_ITS | Encounter Summary ---
Author Organization [facility] Address [address] [place] [address] Phone Care Team Providers Care Sous Chef Kitchen Manager Name Role Phone Caitlyn Bowie MD Primary Care Provider [phone] Encounter Details Date Type Department Care Team (Late Contact Info) Description 12/10/2024 Documentation Only [facility] [address] [place] [address] Marina Abdi [address] [place] [address] Social History Tobacco Use Types [...] Visit [facility] [address] [place] [address] Rubén Ashraf MD [address] [place] [address] [place] [address] documented as of this encounter Visit Diagnoses Not on filedocumented in this encounter Care Teams Sous Chef Kitchen Manager Relationship Specialty Start Date End Date Caitlyn Bowie MD [address] [place], [place] PCP - General Internal Medicine 09/24/24 documented as of this encounter
--- OUTSIDE RECORDS SUMMARY | 2025-03-02 10:30 | XMS_ITS | Clinical Summary ---
Author Organization [facility] Address [address] [place] [address] Care Team Providers Care Wrecking Supervisor Name Role Phone Caitlyn Bowie MD Primary Care Provider [phone] Allergies Active Allergy Reactions Criticality Noted Date [...] Breath High 05/09/2008 Bronchospasm or Wheezing Ipratropium [place] Unknown/Patient and Family Unable to Define Medium [...] 1 capsule by mouth daily. Active B Uhnonum-B-Fxpmg Acid (STRESS 500 B-COMPLEX PO) Take 1 [...] & B MEDICARE PART A & B [facility] Care Teams Wrecking Supervisor Relationship Specialty Start Date End Date Caitlyn Bowie MD [address] [place] [address] PCP - General Internal Medicine 03/20/23
--- OUTSIDE RECORDS SUMMARY | 2025-03-02 10:30 | XMS_ITS | Clinical Summary ---
Author Organization [facility] Address [address] [place] [address] Phone Care Team Providers Care Professor Of Communication Arts Name Role Phone Caitlyn Bowie MD [...] WEEK. 114 tablet 3 01/23/20 25 Active Active Problems Problem Noted Date Diagnosed [...] (12/25/2021 4:22 PM EDT): Followed closely by research compliance specialist-Dr. Ronald Mills at [facility] hematology- advised to continue Coumadin [...] (09/09/2021 10:42 PM EST): Followed closely by research compliance specialist-Dr. Ronald Mills at [facility] hematology- last seen on 08/05/2021 [...] anticoagulation clinic to keep INR at 1.5-2.0. retirement current use of systemic steroids 09/09 Assessment & Plan (12/10/2021 10:38 AM EDT): Carefully continue alternating low dosing as prescribed by her children's entertainer and consider gentle taper when ready. Daily [...] alternating low dosing as prescribed by her children's entertainer and consider gentle taper when ready. Daily [...] AM EDT Office Visit [facility] [address] [place] [address] Anna Ellis MD Acquired hypothyroidism (Primary Dx); Hyperparathyroidism; Age-related osteoporosis without current pathological fracture; Adrenal insufficiency 01/12/2025 Refill [facility] [address] [place] [address] Anna Ellis MD Medication Refill from Last 3 Months Immunizations Immunization Administration Dates Next Due Influenza, Unspecified Formulation 05/01/2009(Pozo: Patient Decision) Pneumococcal polysaccharide PPSV23 05/01/2009(Pozo: Patient [...] 11:40 AM EST Office Visit [facility] [address] [place] [address] Anna Ellis MD [address] [place] [address] [email or web address] Maintenance Due Date Last Done Comments [...] MD LAB BLOOD ORDERABLES F inal Result [address] [address] from Last 3 Months or Most Recently Relevant to Health Maintenance Insurance MEDICARE PART A & B [facility] MEDEX SUPPLEMENT [facility] SAFETY NET [facility] MEDICARE PART A & B [facility] MEDEX SUPPLEMENT [facility] NET FULL [facility] MEDICARE [facility] A & B [place] [facility] MEDEX SUPPLEMENT [facility] MEDICARE PART A & B [facility] MEDEX SUPPLEMENT [facility] MEDICARE PART A & B [facility] MEDEX SUPPLEMENT [facility] MEDICARE PART A & B [facility] MEDEX SUPPLEMENT [facility]ET[facility] PART A & B [facility] MEDEX SUPPLEMENT HEALTH SAFETY [facility] MEDIC[facility] PART A & B Member Subscriber Plan / Payer (Ef fective 1999-Present) Name:Helena, Jovana J Member ID:[id number] Relation to Subscriber:Self Name:Jovana Malik Subscriber ID:[id number] Payer ID:[id number] Group ID:Not on file Type:Medicare Address: [facility] Adype [facility] [address] [place] [address] [place] [address] [facility] MEDEX SUPPLEMENT HEALTH SAFETY NET [facility] MEDICARE PART A & B [facility] MEDEX SUPPLEMENT [facility] NET [facility]ULL [facility] Care Teams Professor Of Communication Arts Relationship Specialty Start Date End Date Caitlyn Bowie MD [address] [place], [place] [id number] PCP - General Internal Medicine 09/09/21 Additional Source Comments The information contained in this document represents components of the legal health record. It is not the complete legal health record.[facility]
--- OUTSIDE RECORDS SUMMARY | 2025-03-02 10:30 | XMS_ITS | Clinical Summary ---
Author Organization [facility] Address [address] [place] [address] Care Team Providers Care Convenience Store Manager Name Role Phone Caitlyn Bowie Primary Care Provider [phone] Allergies Active Allergy Reactions Criticality Noted Date [...] Throat tightness Throat tightness Throat tightness Ipratropium [place] Unknown Medium 12/18/2021 Isosorbide Mononitrate 11/23/2020 Other [...] topic Insurance MEDICARE PART A & B [facility] Care Teams Convenience Store Manager Relationship Specialty Start Date End Date Caitlyn Bowie [address] [place] [address] PCP - General Internal Medicine 07/18/22
--- OUTSIDE RECORDS SUMMARY | 2025-03-02 10:30 | XMS_ITS | Patient Health Record ---
Author Organization [facility] Address [address] [place] [address] Care Team Providers Care Provider Relations Advocate Name Role Phone EVELIN RAMSAY Primary Care Provider Yenny Hou Unavailable [phone] Allergies Allergen (clinical drug ingredient) Drug/Non Drug [...] UROBILINOGEN Neg BILIRUBIN Neg BLOOD Neg Urinalysis, Complete-[id number] Reviewed date:05/04/2024 11:35:42 PM Interpretation: Performing Lab:[facility], [address] [place] [address], Phone - [phone], Director - Arely Notes/Report: Specific [place] 1.009 1.005-1.030 pH 6.5 5.0-7.5 Urine-Color Yellow [...] Bacteria None seen None seen/Few Urine Culture, Routine-[id number] Reviewed date:05/04/2024 11:35:22 PM Interpretation: Performing Lab:[facility], [address] [place] [address], Phone - [phone], Director - Arely Notes/Report: Urine Culture, Routine Final report Result 1 Culture shows less than 10,000 colony forming units of bacteria per milliliter of urine. This colony count is not generally considered to be clinically significant. PDF Report Reviewed date:05/04/2024 11:35:04 PM Interpretation: Performing Lab:[facility], [address] [place] [address], Phone - [phone], Director - Arely Notes/Report: Reason For Referral [...] 25MCG 1 ORAL daily; Durati on: -3 [facility] 06/10/2014 Active ZyrTEC Allergy 10MG 1 ORAL [...] 50MG 1 ORAL at bedtime; Duration: -3 [facility] 06/10/2014 Active Meclizine HCl 25 MG 1 tablet as needed Orally [facility] 06/10/2014 Active Albuterol Sulfate (2.5 MG/3ML)0.083% Inhalation 4 x a day prn 06/10/2014 Active Valium 5MG 1 tablet as needed O RAL at bedtime, 1/2 tab prn during the day [facility] 06/10/2014 Active Social History Tobacco Use: Social [...] Status Risk Notes Problem Postmenopausal atrophic vaginitis (16038681) Postmenopausal atrophic vaginitis (N95.2) Active confirmed Problem Age-related osteoporosis (734199803) Age-related osteoporosis without current pathological fracture (M81.0) Active confirmed Problem Urgent desire to urinate (02568822) Urgency of urination (R39.15) Active confirmed Problem 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 Problem Chronic systolic heart failure (679734126) Chronic systolic (congestive) heart failure (I50.22) Active confirmed Problem Chronic obstructive pulmonary disease, unspecified (J44.9) Active confirmed Problem Functional urinary incontinence (434928983) Functional 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) Active confirmed Problem Personal history of primary malignant neoplasm of bronchus (421047154) 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) Active confirmed Vital Signs Temperature 97.7 degrees Fahrenheit 07/18/2024 Blood pressure diastolic 62 mm Hg 07/18/2024 Height 63 in 07/18/2024 Blood pressure systolic 102 mm Hg 07/18/2024 Weight 126 lbs 07/18/2024 BMI 22.32 kg/m2 07/18/2024 Encounters Encounter Location Date Provider Diagnosis Total [address] [address] 05/03/2024 Yennydorothy Elizalde Urgency of urination R39.15 and Abscess of vulva N76.[address] [address] 05/10/2024 Yenny Elizalde Abscess of vulva N76 .[address] [address] 05/17/2024 Yenny Elizalde Abscess of vulva N76 .[address] [address] 07/09/2024 Yenny Tonio Urgency of urination R39.15 ; Acute vaginitis N76.0 and Postmenopausal atrophic vaginitis N95.[address] [address] 07/18/2024 Yenny Elizalde Encounter for screening mammogram for malignant neoplasm of breast Z12.31 and Mastodynia N64.[address] [address] 05/10/2024 Yenny Elizalde Total [address] [address] 05/13/2024 Yenny Lovettva Total [address] [place] [address] 06/11/2024 Yenny Roweueva Assessments Encounter Date Diagnosis (ICD Code) Assessment Notes Treatment Notes Treatment Clinical Notes Section Notes 05/17/2024 Abscess of vulva (ICD-10 - N76.4) REASSURED PAT THAT THE ABSCESS HAS RESOLVED. D/C ANTIBIOTICS. LOOSE COTTON UNDERWEAR. CALL IMMEDIATELY IF SHE HAS OTHER LESIONS IN THE FUTURE. 07/18/2024 Encounter for screening mammogram for malignant neoplasm of breast (ICD-10 - Z12.31) REGULAR MAMMOGRAMS AND SBE'S WERE RECOMMENDED. 07/09/2024 Urgency of urination (ICD-10 - R39.15) 05/10/2024 Abscess of vulva (ICD-10 - N76.4) CLEANED AREA WIT YPDROGEN PEROXIDE AND TRIED TO GET MUCH EXUDATE OUT POSSIBLE. CONTINUE ANTIBIOTICS. WILL REFER TO INFECTIOUS DISEASE SECTION FOR ANTIBIOTIC COVERAGE. DETAILED INSTRUCTIONS ON HOW TO CLEAN AND DRESS WOUND WERE GIVEN. 05/03/2024 Urgency of urination (ICD-10 - R39.15) OFFICIAL UA AND URINE C/S 05/03/2024 Abscess of vulva (ICD-10 - N76.4) DISCUSSED FINDINGS, DX AND TX OPTIONS WITH THE PAT. SHE IS ALLERGIC TO MOST ANTIBIOTICS AND HAS OTHER MEDICAL ISSUES. BEST FOR [facility] AND DISCUSSED THIS PAT. THEY AGREED TO SEE HER AND MANAGE HER CASE. 07/09/2024 Acute vaginitis (ICD-10 - N76.0) DISCUSSED [...] BRA TO BED. IBUPROFEN OR ACETAMINOPHEN PRN. 07/09/2024 Postmenopausal atrophic vaginitis (ICD-10 - N95.2) [...] Date MEDICARE [address] [place] [id number] CINDA WATSON Self - patient is the insured MEDEX [address] [place] [address] [id number] DANIEL WATSONE Self - patient is [...]
--- OUTSIDE RECORDS SUMMARY | 2025-03-02 10:30 | XMS_ITS | Clinical Summary ---
Author Organization [facility] Address [address] [place] [address] Phone Care Team Providers Care Security Auditor Name Role Phone Caitlyn Bowie MD Primary Care Provider [phone] Allergies Active Allergy Reactions Criticality Noted Date [...] 1 tablet (5 mg total) by mouth 1 (one) time each day if needed. Active docusate sodium (COLACE) 100 mg capsule [...] 3 (three) times a week. 4 Active predniSONE (DELTASONE) 2.5 mg tablet Take 1 tablet (2.5 mg total) by mouth every other day. Active ciprofloxacin (CIPRO) 500 mg tablet Take 1 tablet (500 mg total) by mouth 2 (two) times a day for 10 days. 20 tablet 5 03/05/20 25 Active Active Problems Problem Noted Date [...] 20 mg as needed by her previous physician's assistant which she has taken sporadically. I have asked her to take this daily to see if this improves her symptoms and she has a follow-up appointment with Dr. Shah on September 16 which she will keep. We also had a long conversation regarding the fact that she is seeing 3 different physician's assistant for the same problems. We informed her [...] continues to see Dr. Avalos or her physician's assistant at [facility]. She verbalized understanding of this and [...] right lower leg 03/06/2019 Antiphospholipid antibody syndrome ([facility] V24) 12/24/2018 Adrenal insufficiency ([facility] V24) 08/23/2018 Allergic rhinitis 08/23/2018 Hyperparathyroidism ([facility]) 08/23/2018 MRSA infection 08/23/2018 Overview (05/16/2024): 06/2009, s/p thoracotomy infection Osteoarthritis 08/23/2018 Radiation-induced pulmonary fibrosis ([facility] V2 4) 11/13/2017 Bronchiectasis ([facility] V24, [facility] V28) 2017 Leg edema 08/08/2017 Restrictive lung disease 08/08/2017 Chronic obstructive pulmonar y disease ([facility] V24, [facility] V28) 04/13/2017 Fibromyalgia 04/13/2017 Congestive heart failure ([facility] V24, [facility] V 28) 04/04/2017 Heterozygous factor V Leiden mutation ([facility] V 24) 04/04/2017 Obstructive sleep apnea syndrome 04/04/2017 Overview (05/16/2024): CPAP Pleural effusion 04/04/2017 Pulmonary hypertension ([facility] V24, [facility] V28 ) 04/04/2017 Multiple pulmonary nodules 03/17/2017 [...] Encounters Date Type Department Care Team Description 02/24/2025 Telephone Gastroenterology - [address] [place] [address] Tim Gomes MD Advice Only 02/23/2025 11:40 AM EDT - 02/23/2025 4:22 PM EDT Emergency [facility] Emergency [address] [place] [address] Celia Snider DO Diverticulitis (Primary Dx) Discharge Disposition: Home or Self Care 02/21/2025 4:30 PM EDT Office Visit [facility] [address] [facility] [address] [place] [address] Shirley Chaidez PA 01/19/2025 7:49 PM EDT - 01/19/2025 9:08 PM EDT Emergency [facility] Emergency [address] [place] [address] Discharge Disposition: Home or Self Care 12/23/2024 9:00 AM EDT Office Visit Vascular Surgery - [place] [address] [place] [address] Jerry Li MD Complex regional pain syndrome type 1 of both lower extremities (Primary Dx); Leg swelling 12/10/2024 2:43 PM EDT - 12/10/2024 4:57 PM EDT Emergency [facility] Emergency [address] [place] [address] Head injury, initial encounter (Primary Dx) Discharge Disposition: Home or Self Care 12/10/2024 1:30 PM EDT Office Visit [facility] [address] [facility] [address] [place] [address] Shirley Chaidez PA White matter lesion of [...] dori pect Heterozygous factor V Leiden mutation ([facility] V24) 04/04/2017 DX:Heterozygous factor V Lei den [...] syndrome 02/18/2013 DX:Postc oncussion syndrome Pulmonary hypertension ([facility] V24, [facility] V28) 04/04/2017 DX:Pulmonary hypertension (H CC) Restrictive lung disease 08/08/2017 DX:Rest rictive lung disease 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 DX:Zinc deficien cy Obstructive sleep apnea syndrome 04/04/2017 DX:Obstructive sleep apnea syndrome; COMMENT: CPAP Radiation-induced pulmonary fibrosis ([facility] V24) 11/13/2017 DX:Radiation-induced pulmona ry fibrosis (HCC) Adrenal insufficiency ([facility] V[facility]) 08/23/2018 DX:Adrenal insufficiency (HCC) Hyperparathyroidism ([facility] V[facility]) 08/23/2018 DX:Hyperparathyroidism (HCC) Osteoporosis 11/17/2016 DX:Osteoporosis [...] Mx LLL resection, Chemo, RT, Cisplatin, Vinorelbine [phone] Antiphospholipid antibody sy ndrome ([facility] V24) 12/24/2018 DX:Antiphospholipid antibody syndrome (HCC) 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 Hyperparathyroidism ([facility] V24) DX:Hyperparathyroidism (HCC) Adrenal insufficiency ([facility] V24) DX:Adrenal insufficiency (HCC) Family [...] Sign Reading Time Taken Comments Blood Pressure 128/78 02/23/2025 12:44 PM EDT Pulse 79 02/23/2025 12:44 PM EDT Temperature 36.8 C (98.2 F) 02/23/2025 12:44 PM EDT Respiratory Rate 18 02/23/2025 12:44 PM EDT Oxygen Saturation 100% 02/23/2025 12:44 PM EDT Inhaled Oxygen Concentration - - Weight 57.6 kg (127 lb) 02/23/2025 12:49 PM EDT Height 157.5 cm (5' 2 ) 02/23/2025 12:49 PM EDT Body Mass Index 23.23 02/23/2025 12:49 PM EDT Plan of Treatment Upcoming Encounters Date Type Department Care Team (Late st Contact Info) Description 05/29/2025 3:00 PM EST Office Visit [facility] [address] [facility] [address] [place] [phone] Ayanna Jaffe MD [address] [facility] [address] [place] [phone] Health Maintenance Due Date Last Done Comments [...] history exists Hypertension/CHF/CAD Annual BMP Blood Test 02/23/2026 02/23/2025, 06/15/2024, 04/23/2024, Additional history exists DTaP,Tdap,and Td Vaccines (3 [...] Procedure Name Priority Date/Time Associated Diagnosis Comments ECG ANNOTATED 02/24/2025 CT ABDOMEN PELVIS WO CONTRAST STAT 02/23/2025 2:[address] HEAD WO CONTRAST STAT 02/23/2025 2 :53 PM EDT LACTATE, WITH REFLEX STAT 02/23/2025 2:25 PM EDT CULTURE BLOOD STAT 02/23/2025 2:25 PM EDT CULTURE BLOOD STAT 02/23/2025 2:25 PM EDT XR CHEST 1 VIEW STAT 02/23/2025 2:15 PM EDT MARTINEZ URINE CULTURE TUBE STAT 02/23/2025 2:04 PM EDT URINALYSIS WITH REFLEX MICROSCOPIC AND CULTURE STAT 02/23/2025 2:04 PM EDT URINALYSIS WITH REFLEX MICROSCOPIC AND CULTURE STAT 02/23/2025 2:04 PM EDT CBC WITH AUTO DIFFERENTIAL STAT 02/23/2025 1:15 PM EDT TYPE AND SCREEN STAT 02/23/2025 1:15 PM EDT COMPREHENSIVE METABOLIC PANEL STAT 02/23/2025 1:15 PM EDT TROPONIN I HIGH SENSITIVITY STAT 02/23/2025 1:15 PM EDT CBC AND DIFFERENTIAL STAT 02/23/2025 1:15 PM EDT PROTHROMBIN TIME WITH INR STAT 02/23/2025 1:15 PM EDT ECG 12-LEAD STAT 02/23/2025 1:[address] HEAD WO CONTRAST STAT 12/10/2024 3 :47 PM EDT from Last 3 Months Results * ECG-Annotated (02/24/2025) us Provider Onbase MD ECG ORDERABLES Final Result * CT Head wo Contrast (02/23/2025 2:53 PM EDT) Only the most recent of2 resultswithin the time period is included. Anatomical Region Laterality Modality Head and Neck Computed Tomogra phy 02/23/2025 2:57 PM EDT Impressions 02/23/2025 3:01 PM EDT Impression: No acute hemorrhage or intracranial mass effect. No significant change. Telekarla KAPOOR ([id number]) -------- FINAL REPORT -------- Dictated By: Fawn Levin Dictated Date: 02/23/2025 14:57 ET Assigned Physician: Fawn Levin Reviewed and Electronically Signed By: Fawn Levin Signed Date: 02/23/2025 15:01 ET Workstation ID: [id number] Transcribed By: Self Edit Transcribed Date: 02/23/2025 14:57 ET Narrative 02/23/2025 3:01 PM EDT History: Headache. Comparison: 12/10/24 Technique: Contiguous axial images were obtained at 2.5 mm intervals through the posterior fossa and at 5 mm intervals through the remainder of the brain without intravenous contrast. DLP: 808.85 mGy/cm GE Etsypeed VCT Iterative reconstruction technique Findings: Moderate generalized cerebral volume loss is unchanged and probably within normal limits for the stated age. Martinez-white differentiation is maintained. No abnormal intra- or extra-axial masses or fluid collections are seen. There is no evidence of acute intracranial hemorrhage. The included portions of the paranasal sinuses and mastoid air cells are clear. The calvarium is intact. A 9 mm soft tissue nodule remains stable in the left superior orbit, visible dating back to 2008, slightly smaller now. Procedure Note Fawn Levin MD - 02/23/2025 History: Headache. Comparison: 12/10/24 Technique: Contiguous axial images were obtained at 2.5 mm intervalsthrough the posterior fossa and at 5 mm intervals through the remainder ofthe brain without intravenous contrast. DLP: 808.85 mGy/cm GE Etsypeed VCT Iterative reconstruction technique Findings: Moderate generalized cerebral volume loss is unchanged and probably withinnormal limits for the stated age. Martinez-white differentiation ismaintained. No abnormal intra- or extra-axial masses or fluid collectionsare seen. There is no evidence of acute intracranial hemorrhage. The included portions of the paranasal sinuses and mastoid air cells areclear. The calvarium is intact. A 9 mm soft tissue nodule remains stable in the left superior orbit,visible dating back to 2008, slightly smaller now. IMPRESSION: Impression: No acute hemorrhage or intracranial mass effect. No significant change. Telerad EMELIA ([id number]) -------- FINAL REPORT -------- Dictated By: Fawn Levin Dictated Date: 02/23/2025 14:57 ET Assigned Physician: Fawn Levin Reviewed and Electronically Signed By: Fawn Levin Signed Date: 02/23/2025 15:01 ET Workstation ID: [id number] Transcribed By: Self Edit Transcribed Date: 02/23/2025 14:57 ET Afsaneh KAPOOR IMG CT PROCEDURES Final Resu lt * CT Abdomen Pelvis wo Contrast (02/23/2025 2:53 PM EDT) Anatomical Region Laterality Modality Body Computed Tomogra phy 02/23/2025 3:01 PM EDT Impressions 02/23/2025 3:05 PM EDT Impression: Uncomplicated sigmoid diverticulitis. The differential diagnosis includes colonic mucosal neoplasm and direct visualization is recommended, when clinically appropriate, to exclude this possibility. Telerad EMELIA ([id number]) -------- FINAL REPORT -------- Dictated By: Fawn Levin Dictated Date: 02/23/2025 15:01 ET Assigned Physician: Fawn Levin Reviewed and Electronically Signed By: Fawn Levin Signed Date: 02/23/2025 15:05 ET Workstation ID: [id number] Transcribed By: Self Edit Transcribed Date: 02/23/2025 15:01 ET Narrative 02/23/2025 3:05 PM EDT History: Left lower quadrant abdominal pain. Comparison: 08/23/23 Technique: Helical volumetric imaging of the abdomen and pelvis was performed without intravenous or oral contrast. DLP: 480.07 mGy/cm silkfred VCT Iterative reconstruction technique Findings: Chronic pleural-parenchymal scarring at the base of the left hemithorax is without significant change, compatible with the previously treated lung malignancy. Multichamber cardiomegaly is partially imaged, with a microclip in place. The unenhanced liver, spleen, pancreas and adrenal glands are unremarkable. The gallbladder is physiologically distended. No evidence of biliary obstruction is seen. The kidneys are normal in position and size. No renal or ureteral calculi are identified and there is no hydronephrosis. Small cortical cysts are again seen in the left kidney. No abdominal aortic aneurysm is seen. There is no ascites. The uterus is absent. The urinary bladder is unremarkable. Diverticulosis of the sigmoid colon is noted. There is mild fat stranding adjacent to the distal sigmoid colon, suspicious for mild diverticulitis. No fluid collection is seen to suggest a drainable abscess and there is no evidence of free perforation into the peritoneal cavity. The sigmoid process does not obstruct the colon. A small hiatal hernia is present. The small bowel appears unremarkable. The bones are demineralized. A degenerative grade 1 anterolisthesis is noted at L3-L4. Lumbar disc degenerative changes are also seen. Procedure Note Fawn Levin MD - 02/23/2025 History: Left lower quadrant abdominal pain. Comparison: 08/23/23 Technique: Helical volumetric imaging of the abdomen and pelvis wasperformed without intravenous or oral contrast. DLP: 480.07 mGy/cm silkfred VCT Iterative reconstruction technique Findings: Chronic pleural-parenchymal scarring at the base of the left hemithorax iswithout significant change, compatible with the previously treated lungmalignancy. Multichamber cardiomegaly is partially imaged, with amicroclip in place. The unenhanced liver, spleen, pancreas and adrenal glands areunremarkable. The gallbladder is physiologically distended. No evidence ofbiliary obstruction is seen. The kidneys are normal in position and size. No renal or ureteral calculiare identified and there is no hydronephrosis. Small cortical cysts areagain seen in the left kidney. No abdominal aortic aneurysm is seen. There is no ascites. The uterus isabsent. The urinary bladder is unremarkable. Diverticulosis of the sigmoid colon is noted. There is mild fat strandingadjacent to the distal sigmoid colon, suspicious for mild diverticulitis.No fluid collection is seen to suggest a drainable abscess and there is noevidence of free perforation into the peritoneal cavity. The sigmoid process does not obstruct the colon. A small hiatal hernia ispresent. The small bowel appears unremarkable. The bones are demineralized. A degenerative grade 1 anterolisthesis isnoted at L3-L4. Lumbar disc degenerative changes are also seen. IMPRESSION: Impression: Uncomplicated sigmoid diverticulitis. The differential diagnosis includescolonic mucosal neoplasm and direct visualization is recommended, whenclinically appropriate, to exclude this possibility. Telekarla KAPOOR ([id number]) -------- FINAL REPORT -------- Dictated By: Fawn Levin Dictated Date: 02/23/2025 15:01 ET Assigned Physician: Fawn Levin Reviewed and Electronically Signed By: Fawn Levin Signed Date: 02/23/2025 15:05 ET Workstation ID: [id number] Transcribed By: Self Edit Transcribed Date: 02/23/2025 15:01 ET us Afsaneh KAPOOR IMG CT PROCEDURES Final Resu lt * Lactate, with reflex (02/23/2025 2:25 PM EDT) Pathologist [facility] LACTIC ACID 1.1 0.4 - 2.0 mmol/L LAB CHEMISTRY METHOD 02/23/2025 3:[address] [facility] Blood Venous blood specimen / Unknown Venipuncture / Unknown 02/23/2025 2:25 PM EDT 02/23/2025 2:35 PM EDT us Afsaneh KAPOOR LAB BLOOD ORDERABLES Final R esult [facility] [address] [place] [address], [place] [phone] * Blood Culture, Peripheral Draw #2 (02/23/2025 2:25 PM EDT) Only the most recent of2 resultswithin the time period is included. Culture, Blood No growth at 5 days 02/28/2025 3:[address] [facility] Blood Venous blood specimen / Unknown Venipuncture / Unknown 02/23/2025 2:25 PM EDT 02/23/2025 2:35 PM EDT Afsaneh KAPOOR LAB MICROBIOLOGY - GENERAL O RDERABLES Final Result [facility] [address] [place] [address], [place] [phone] * XR Chest 1 View (02/23/2025 2:15 PM EDT) Anatomical Region Laterality Modality Body Radiographic Monserrat ging 02/23/2025 2:33 PM EDT Impressions 02/23/2025 2:37 PM EDT Impression: Stable radiographic appearance of the chest, including volume loss and chronic pleural-parenchymal opacity in the left hemithorax consistent with previously treated lung carcinoma. No acute process identified. Telerad EMELIA ([id number]) -------- FINAL REPORT -------- Dictated By: Fawn Levin Dictated Date: 02/23/2025 14:33 ET Assigned Physician: Fawn Levin Reviewed and Electronically Signed By: Fawn Levin Signed Date: 02/23/2025 14:37 ET Workstation ID: [id number] Transcribed By: Self Edit Transcribed Date: 02/23/2025 14:33 ET Narrative 02/23/2025 2:37 PM EDT History: Dyspnea. Personal history of lung carcinoma. Comparison: 07/30/23, thoracic CT 09/09/24 [place], [place] Findings: Portable AP upright chest at 2:05 PM. The cardiac silhouette remains enlarged. The left heart border is silhouetted chronically. A Mitraclip is again seen. Atherosclerotic calcification of the thoracic aorta is noted. There remains volume loss in the left hemithorax, with confluent pleural-based opacity at the base of left hemithorax, stable from the previous exams. The right lung is grossly clear. Procedure Note Fawn Levin MD - 02/23/2025 History: Dyspnea. Personal history of lung carcinoma. Comparison: 07/30/23, thoracic CT 09/09/24 [place], [place] Findings: Portable AP upright chest at 2:05 PM. The cardiac silhouette remainsenlarged. The left heart border is silhouetted chronically. A Mitraclip isagain seen. Atherosclerotic calcification of the thoracic aorta isnoted. There remains volume loss in the left hemithorax, with confluentpleural-based opacity at the base of left hemithorax, stable from theprevious exams. The right lung is grossly clear. IMPRESSION: Impression: Stable radiographic appearance of the chest, including volume loss andchronic pleural-parenchymal opacity in the left hemithorax consistent withpreviously treated lung carcinoma. No acute process identified. Telerad EMELIA ([id number]) -------- FINAL REPORT -------- Dictated By: Fawn Levin Dictated Date: 02/23/2025 14:33 ET Assigned Physician: Fawn Levin Reviewed and Electronically Signed By: Fawn Levin Signed Date: 02/23/2025 14:37 ET Workstation ID: [id number] Transcribed By: Self Edit Transcribed Date: 02/23/2025 14:33 ET Afsaneh KAPOOR IMG XR PROCEDURES Final Resu lt * Urinalysis with reflex microscopic and culture (02/23/2025 2:04 PM EDT) Specific [place] Urine 1.006 1.003 - 1.030 LAB URINALYSIS - AUTOMATED METHOD 02/23/2025 2:[address] [facility] pH, Urine 7.5 5.0 - 8.0 pH LAB URINALYSIS - AUTOMATED METHOD 02/23/2025 2:[address] [facility] Leukocytes, Urine Negative Negative LAB URINALYSIS - AUTOMATED METHOD 02/23/2025 2:[address] [facility] Nitrite, Urine Negative Negative LAB URINALYSIS - AUTOMATED METHOD 02/23/2025 2:[address] [facility] Protein, Urine Negative <=Trace mg/dL LAB URINALYSIS - AUTOMATED METHOD 02/23/2025 2:[address] [facility] Glucose, Urine Negative Negative mg/dL LAB URINALYSIS - AUTOMATED METHOD 02/23/2025 2:[address] [facility] Ketones, Urine Negative Negative mg/dL LAB URINALYSIS - AUTOMATED METHOD 02/23/2025 2:[address] [facility] Urobilinogen, Urine 0.2 0.2 - 1.0 mg/dL LAB URINALYSIS - AUTOMATED METHOD 02/23/2025 2:[address] [facility] Bilirubin, Urine Negative Negative LAB URINALYSIS - AUTOMATED METHOD 02/23/2025 2:[address] [facility] Blood, Urine Negative Negative LAB URINALYSIS - AUTOMATED METHOD 02/23/2025 2:[address] [facility] Urine Urine specimen obtained by clean catch procedure / Unknown Non-blood Collection / Unknown 02/23/2025 2:04 PM EDT 02/23/2025 2:05 PM EDT Afsaneh KAPOOR LAB URINE ORDERABLES Final R esult [facility] [address] [place] [address], [place] [phone] * Martinez urine culture tube (02/23/2025 2:04 PM EDT) Extra Tube Hold for add-ons. 02/23/2025 4:[address] [facility] Comment:Auto resulted. Urine Urine specimen obtained by clean catch procedure / Unknown Non-blood Collection / Unknown 02/23/2025 2:04 PM EDT 02/23/2025 2:05 PM EDT Afsaneh KAPOOR LAB URINE ORDERABLES Final R esult [facility] [address] [place] [address], * Troponin I high sensitivity (02/23/2025 1:15 PM EDT) [facility] High Sensitivity Troponin I 25 <=54 ng/L LAB CHEMISTRY METHOD 02/23/2025 2:[address] [facility] Blood Venous blood specimen / Unknown Venipuncture / Unknown 02/23/2025 1:15 PM EDT 02/23/2025 1:[address] [facility] - 02/23/2025 2:15 PM EDT High levels of biotin in samples may falsely decrease hsTroponin values. Use caution when interpreting hsTroponin results in patients taking biotin who exhibit renal impairment (eGFR <60) or in patients taking more than 20 mg/day of biotin. Afsaneh KAPOOR LAB BLOOD ORDERABLES Final R esult [facility] [address] [place] [address], [place] [phone] * (ABNORMAL) CBC auto differential (02/23/2025 1:15 PM EDT) [facility] WBC 17.4(H) 4.8 - 10.8 K/mcL LAB HEMETOLOGY METHOD 02/23/2025 1:[address] [facility] RBC 3.60(L) 3.80 - 4.80 M/mcL LAB HEMETOLOGY METHOD 02/23/2025 1:[address] [facility] Hemoglobin 11.6 11.5 - 16.0 g/dL LAB HEMETOLOGY METHOD 02/23/2025 1:[address] [facility] Hematocrit 36.3 35.0 - 47.0 % LAB HEMETOLOGY METHOD 02/23/2025 1:47 PM [facility] MCV 101.7(H) 79.0 - 98.0 FL LAB HEMETOLOGY METHOD 02/23/2025 1:47 PM [facility] MCH 32.5(H) 27.0 - 32.0 pcg LAB HEMETOLOGY METHOD 02/23/2025 1:47 PM [facility] MCHC 32.0 32.0 - 37.0 g/dL LAB HEMETOLOGY METHOD 02/23/2025 1:47 PM [facility] RDW 14.2 11.0 - 15.0 % LAB HEMETOLOGY METHOD 02/23/2025 1:47 PM [facility] Platelets 232 130 - 400 K/mcL LAB HEMETOLOGY METHOD 02/23/2025 1:47 PM [facility] MPV 11.5(H) 7.0 - 11.0 FL LAB HEMETOLOGY METHOD 02/23/2025 1:47 PM [facility] NRBC 0.0 <1.0 % LAB HEMETOLOGY METHOD 02/23/2025 1:47 PM [facility] NRBC Absolute 0.00 <0.10 K/mcL LAB HEMETOLOGY METHOD 02/23/2025 1:47 PM [facility] Neutrophils Relative 87.3 % LAB HEMETOLOGY METHOD 02/23/2025 1:47 PM [facility] Lymphocytes Relative 4.9 % LAB HEMETOLOGY METHOD 02/23/2025 1:47 PM [facility] Monocytes Relative 5.6 % LAB HEMETOLOGY METHOD 02/23/2025 1:47 PM [facility] Eosinophils Relative 0.3 % LAB HEMETOLOGY METHOD 02/23/2025 1:47 PM [facility] Basophils Relative 0.6 % LAB HEMETOLOGY METHOD 02/23/2025 1:[address] [facility] Immature Granulocytes Relative 1.3 % LAB HEMETOLOGY METHOD 02/23/2025 1:[address] [facility] Neutrophils Absolute 15.20(H) 1.50 - 7.00 K/mcL LAB HEMETOLOGY METHOD 02/23/2025 1:[address] [facility] Lymphocytes Absolute 0.85(L) 1.00 - 5.00 K/mcL LAB HEMETOLOGY METHOD 02/23/2025 1:[address] [facility] Monocytes Absolute 0.98 0.20 - 1.00 K/mcL LAB HEMETOLOGY METHOD 02/23/2025 1:[address] [facility] Eosinophils Absolute 0.06 0.00 - 0.50 K/mcL LAB HEMETOLOGY METHOD 02/23/2025 1:[address] [facility] Basophils Absolute 0.10 0.00 - 0.20 K/mcL LAB HEMETOLOGY METHOD 02/23/2025 1:[address] [facility] Immature Granulocytes Absolute 0.23(H) 0.00 - 0.03 K/mcL LAB HEMETOLOGY METHOD 02/23/2025 1:[address] [facility] Blood Venous blood specimen / Unknown Venipuncture / Unknown 02/23/2025 1:15 PM EDT 02/23/2025 1:40 PM EDT us Afsaneh KAPOOR LAB BLOOD ORDERABLES Final R esult [facility] [address] [place] [address], * (ABNORMAL) Prothrombin time with INR (02/23/2025 1:15 PM EDT) Protime 14.9(H) 10.6 - 13.9 sec LAB COAGULATION METHOD 02/23/2025 1:[address] [facility] INR 1.2 LAB COAGULATION METHOD 02/23/2025 1:[address] [facility] Blood Venous blood specimen / Unknown Venipuncture / Unknown 02/23/2025 1:15 PM EDT 02/23/2025 1:40 PM EDT Afsaneh KAPOOR LAB BLOOD ORDERABLES Final R esult Performing Organization Address [facility] [facility] Co de Phone Number [facility] [address] [place] [address], [place] [phone] * Type and screen (02/23/2025 1:15 PM EDT) Pathologist [facility] A 02/23/2025 2:[address] [facility] Rh Type Positive 02/23/2025 2:[address] [facility] Antibody Screen Negative 02/23/2025 2:[address] [facility] Blood Venous blood specimen / Unknown Venipuncture / Unknown 02/23/2025 1:15 PM EDT 02/23/2025 1:40 PM EDT [facility] BLOOD BANK TEST ORDERABL ES Final Result Performing Organization Address [facility]/ZIP Co de Phone Number [facility] [address] [place] [address], [place] [phone] * (ABNORMAL) Comprehensive Metabolic Panel (CMP) (02/23/2025 1:15 PM EDT) Sodium 136 133 - 145 mmol/L LAB CHEMISTRY METHOD 02/23/2025 2:[address] [facility] Potassium 3.5 3.5 - 5.5 mmol/L LAB CHEMISTRY METHOD 02/23/2025 2:13 PM [facility] Chloride 97 96 - 110 mmol/L LAB CHEMISTRY METHOD 02/23/2025 2:13 PM [facility] CO2 33(H) 21 - 32 mmol/L LAB CHEMISTRY METHOD 02/23/2025 2:13 PM [facility] Anion Gap 6 3 - 11 LAB CHEMISTRY METHOD 02/23/2025 2:13 PM [facility] Glucose 100 70 - 100 mg/dL LAB CHEMISTRY METHOD 02/23/2025 2:13 PM [facility] BUN 23 5 - 25 mg/dL LAB CHEMISTRY METHOD 02/23/2025 2:13 PM [facility] Creatinine 0.83 0.50 - 1.10 mg/dL LAB CHEMISTRY METHOD 02/23/2025 2:13 PM [facility] eGFR 71 >=60 mL/min/1. 73m2 LAB CHEMISTRY METHOD 02/23/2025 2:13 PM [facility] Comment:Calculation based on the Chronic Kidney Disease Epidemiology Collaboration (CKD-EPI) equation refit without adjustment for race. BUN/Creatinine Ratio 27.7 LAB CHEMISTRY METHOD 02/23/2025 2:13 PM [facility] Calcium 10.0 8.5 - 10.5 mg/dL LAB CHEMISTRY METHOD 02/23/2025 2:13 PM [facility] AST (SGOT) 29 10 - 42 unit/L LAB CHEMISTRY METHOD 02/23/2025 2:13 PM [facility] ALT (SGPT) 24 10 - 60 unit/L LAB CHEMISTRY METHOD 02/23/2025 2:13 PM [facility] Alkaline Phosphatase 72 42 - 121 unit/L LAB CHEMISTRY METHOD 02/23/2025 2:13 PM [facility] Total Protein 6.9 6.0 - 8.0 g/dL LAB CHEMISTRY METHOD 02/23/2025 2:[address] [facility] Albumin 3.5 3.2 - 5.0 g/dL LAB CHEMISTRY METHOD 02/23/2025 2:[address] [facility] Total Bilirubin 0.5 0.0 - 1.4 mg/dL LAB CHEMISTRY METHOD 02/23/2025 2:[address] [facility] Blood Venous blood specimen / Unknown Venipuncture / Unknown 02/23/2025 1:15 PM EDT 02/23/2025 1:39 PM EDT [facility] BLOOD ORDERABLES Final R esult [facility] [address] [place] [address], [place] [phone] * 12-Lead ECG (02/23/2025 1:05 PM EDT) Ventricular Rate ECG 79 BPM GEMUSE Atrial Rate 79 BPM GEMUSE P-R Interval 164 ms GEMUSE QRS Duration 138 ms GEMUSE Q-T Interval 422 ms GEMUSE QTc 483 ms GEMUSE P Wave K[place]aid 68 degrees GEMUSE R [place] -59 degrees GEMUSE T [place] 62 degrees GEMUSE ECG Interpretation Normal sinus rhythm Right bundle branch block Left anterior fascicular block Bifascicular block Abnormal ECG When compared with ECG of 23-NOV-2021 13:05, Right bundle branch block is now Present Confirmed by MARC BACH ([id number]) on 02/23/2025 6:21:33 PM GEMUSE 02/23/2025 1:05 PM EDT 02/23/2025 6:21 PM EDT us [facility] ECG ORDERABLES Final Result GEMUSE from Last 3 Months Insurance MEDICARE [facility] Advance Directives Documents on File Type Date 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
[2025-03-02 10:38] LABS: Hematocrit 34.1 % (37.0-47.0); Hemoglobin 11.7 g/dl (12.0-16.0); Imm Gran Abs Auto 0.21 X10*3/uL (0.00-0.03); Imm Gran Pct Auto 1.3 % (0.0-0.4); Lymphocytes Absolute Auto 1.2 X10*3/uL (1.2-4.9); MANUAL DIFF FLAG NO; Mean Corpuscular HGB Conc 34.3 g/dl (31.0-35.0); Mean Corpuscular Hemoglobin 34.0 pg (27.0-33.0); Mean Corpuscular Volume 99.1 fL (80.0-98.0); NRBC Abs Auto 0.000 X10*3/uL (0.0-0.012); NRBC Pct Auto 0.0 /100WBC (0.0-0.2); Platelet Count 231 X10*3/uL (160-400); Red Blood Count 3.44 X10*6/uL (4.20-5.50); White Blood Count 16.0 X10*3/uL (4.8-10.8)
[2025-03-02 10:43] VITALS: BP 127/61; PULSE 88; RESP 18; TEMP 36.7; O2SAT 95
[2025-03-02 10:50] LABS: Appearance Urine Clear; Glucose Urine UA Negative (Negative); PH 7.0 (5.0-9.0); Specific Gravity - Urine <= 1.005 (1.005-1.025)
[2025-03-02 10:52] LABS: Alanine Aminotransferase 18 U/L (0-31); Albumin Level 3.8 g/dL (3.5-5.0); Alkaline Phosphatase 67 U/L (39-117); Anion Gap 13 (12-20); Aspartate Amino Transferase 29 U/L (5-31); Blood Urea Nitrogen 15 mg/dL (9-16); Calcium 10.0 mg/dL (8.4-10.2); Carbon Dioxide 30 mmol/L (22-29); Chloride 98 mmol/L (96-108); Creatinine Clr Calc Pharmacy 40.5; Estimated Glomerular Filt Rate > 60; Potassium 3.2 mmol/L (3.3-5.1); Sodium 138 mmol/L (135-145); Total Protein 6.8 g/dL (6.5-8.0)
[2025-03-02 11:40] VITALS: BP 132/55; PULSE 75; RESP 18; O2SAT 100
--- NOTE | 2025-03-02 12:10 | ED.GENADULT ---
HPI - General Adult General Chief complaint: General Medical Stated complaint: reaction to meds Time Seen by Provider: 03/02/25 10:26 Source: patient Mode of arrival: ambulatory Limitations: no limitations History of Present Illness HPI narrative: This is a very nice 79 years old female with a history of COPD, history of obstructive sleep apnea, history of anemia diagnosed with diverticulitis a [facility] on Augmentin presented to the emergency department with a chief complaint of possible allergic reaction to Augmentin she says she feels sick she has a loose stools dry tongue. Patient was seen in the emergency room on February 28 2 days ago she had a CT scan which showed no diverticulitis she was told to continue with the antibiotic. She denies any fever chills vomiting abdominal pain at this time. Onset (ago): day(s) (1) Radiation: non-radiation Severity: mild Associated symptoms: denies other symptoms Related Data Home Medications ?Medication ?Instructions ?Recorded ?Confirmed CPAP (CPAP Machine/Device) 06/30/22 11/11/24 Oxygen Home Use 06/30/22 11/11/24 nebulizers 06/30/22 11/11/24 epinephrine 0.3 mg/0.3 mL 0.3 mg IM USEASDIRECTD PRN 07/14/22 01/16/25 injection, auto-injector Allergic Reaction levothyroxine 25 mcg tablet 50 mcg PO SUSA@0600 01/05/24 01/16/25 (Synthroid) docusate sodium 100 mg capsule 100 mg PO BID 01/14/24 01/16/25 diazepam 5 mg tablet 2.5 mg PO BID PRN anxiety 11/21/24 01/16/25 chlorhexidine gluconate 0.12 % 10 ml PO BID 01/16/25 01/16/25 mouthwash ferrous gluconate 324 mg (38 mg 324 mg PO QAM 01/16/25 01/16/25 iron) tablet folic acid 1 mg tablet 1 mg PO DAILY 01/16/25 01/16/25 levothyroxine 25 mcg tablet 25 mcg PO MOTUWETHFR@0600 01/16/25 01/16/25 (Synthroid) rosuvastatin 10 mg tablet 10 mg PO MOWEFR@2100 01/16/25 01/16/25 warfarin 1 mg tablet (Jantoven) mg PO DAILY 01/16/25 potassium chloride 20 mEq oral 40 meq PO DAILY 02/10/25 packet prednisone 10 mg tablet 10 mg PO DIRECTED 02/18/25 Previous Rx's ?Medication ?Instructions ?Recorded simethicone 80 mg chewable tablet 80 mg PO QIDWMHS #20 tabs 02/04/24 (Gas Relief (simethicone)) Advair HFA 230 mcg-21 2 puff inhalation BID 90 days #36 03/13/24 mcg/actuation aerosol inhaler grams (fluticasone propion-salmeterol) furosemide 40 mg tablet 80 mg (2 x 40 mg) PO BID #360 tabs 05/01/24 metoprolol succinate 50 mg 50 mg PO BID #180 tabs 05/10/24 tablet,extended release 24 hr (Toprol XL) levocetirizine 5 mg tablet 5 mg PO DAILY 90 days #90 tabs 05/23/24 trazodone 50 mg tablet 100 mg (2 x 50 mg) PO BEDTIME #180 07/01/24 tabs meclizine 25 mg tablet 25 mg PO Q8H PRN dizziness 10 days 07/22/24 #30 tabs montelukast 10 mg tablet 10 mg PO DAILY #90 tabs 08/24/24 albuterol sulfate 90 mcg/actuation 2 inh inhalation Q6H PRN shortness 11/05/24 aerosol inhaler of breath or wheezing 90 days #3 ea fluticasone propionate 50 2 spray intranasal DAILY 90 days 11/05/24 mcg/actuation nasal #3 ea spray,suspension aspirin 81 mg tablet 81 mg PO DAILY #30 tabs 01/16/25 nitroglycerin 0.4 mg sublingual 0.4 mg sublingual Q5MX3 PRN Chest 01/16/25 tablet (Nitrostat) Pain 30 days #30 tabs cefuroxime axetil 250 mg tablet 250 mg PO Q12H 5 days #10 tabs 02/10/25 doxycycline monohydrate 100 mg 100 mg PO BID 5 days #10 caps 02/10/25 capsule Allergies Allergy/AdvReac Type Severity Reaction Status Date / Time morphine Allergy Severe Itching Verified 03/02/25 10:05 avocado (AVOCADO) Allergy Mild ITCHY Verified 03/02/25 10:05 THROAT, RASH azithromycin (AZITHROMYCIN) Allergy Mild ITCHY Verified 03/02/25 10:05 THROAT, RASH barium iodide (BARIUM IODIDE) Allergy Mild ITCHY Verified 03/02/25 10:05 THROAT, RASH barium sulfate Allergy Mild Itch Verified 03/02/25 10:05 bee pollen (BEE STINGS) Allergy Mild ITCHY Verified 03/02/25 10:05 THROAT, RASH ciprofloxacin (From CIPRO) Allergy Mild ITCHY Verified 03/02/25 10:05 THROAT, RASH clarithromycin (From BIAXIN) Allergy Mild ITCHY Verified 03/02/25 10:05 THROAT, RASH diatrizoate meglumine (From Allergy Mild ITCHY Verified 03/02/25 10:05 GASTROGRAFIN) THROAT, RASH diatrizoate sodium (From Allergy Mild ITCHY Verified 03/02/25 10:05 GASTROGRAFIN) THROAT, RASH diclofenac (From VOLTAREN) Allergy Mild ITCHY Verified 03/02/25 10:05 THROAT, RASH erythromycin base Allergy Mild ITCHY Verified 03/02/25 10:05 (ERYTHROMYCIN BASE) THROAT, RASH gentamicin (GENTAMICIN) Allergy Mild ITCHY Verified 03/02/25 10:05 THROAT, RASH Iodinated Contrast Media Allergy Mild ITCHY Verified 03/02/25 10:05 (IVP DYE) THROAT, RASH levofloxacin (From LEVAQUIN) Allergy Mild ITCHY Verified 03/02/25 10:05 THROAT, RASH metronidazole (From FLAGYL) Allergy Mild ITCHY Verified 03/02/25 10:05 THROAT, RASH moxifloxacin (From AVELOX) Allergy Mild ITCHY Verified 03/02/25 10:05 THROAT, RASH Penicillins (PENICILLINS) Allergy Mild ITCHY Verified 03/02/25 10:05 THROAT, RASH shrimp (SHRIMP) Allergy Mild ITCHY Verified 03/02/25 10:05 THROAT, RASH Sulfa (Sulfonamide Allergy Mild ITCHY Verified 03/02/25 10:05 Antibiotics) (SULFA THROAT, (SULFONAMIDE ANTIBIOTICS)) RASH vancomycin (VANCOMYCIN) Allergy Mild ITCHY Verified 03/02/25 10:05 THROAT, RASH clindamycin AdvReac Intermediate Unknown Verified 03/02/25 10:05 Review of Systems Review of Systems: No reported fever no reported vomiting loose stools only abdominal pain subsided ENT: Reports system reviewed and no additional complaints, except as documented Cardiovascular: Cardiovascular: Reports no additional cardiovascular complaints Gastrointestinal: Gastrointestinal: Reports as per [facility] Past Medical History Medical History Chest pain Chest pain Ankle pain Chronic hypercapnic respiratory failure KANDY treated with BiPAP COPD (chronic obstructive pulmonary disease) Open wound Warfarin anticoagulation Complex sleep apnea syndrome Leg pain Anemia Tachycardia DVT (deep venous thrombosis) Compression fracture of body of thoracic vertebra ASD (atrial septal defect) Pleuritic chest pain History of COVID-19 Chronic anticoagulation Hypothyroidism GERD (gastroesophageal reflux disease) Hyperlipidemia Hypertension Factor 5 Leiden mutation, heterozygous History of non-ST elevation myocardial infarction (NSTEMI) Hypoxia Anxiety PTSD (post-traumatic stress disorder) Hemoptysis Dyspnea Tracheobronchitis CLARA positive Diverticulitis Allergic bronchitis (HFpEF) heart failure with preserved ejection fraction Subarachnoid bleed Insomnia Anti-phospholipid antibody syndrome Hypogammaglobulinemia Chronic respiratory failure Arterial insufficiency of lower extremity Complex regional pain syndrome i of right lower limb Post herpetic neuralgia Pulmonary hypertension Pericardial effusion Pulmonary emboli Pleural effusion Radiation fibrosis of lung Pneumonitis Pulmonary nodules Lung cancer Surgical History History of colonoscopy History of lung surgery History of tonsillectomy History of hysterectomy S/P mitral valve clip implantation History of cardiac cath Family History Family History Sister No problems noted. Mother Cardiovascular disease Daughter Tachycardia Other KANDY (obstructive sleep apnea) Social History Social History Household Members: Other Housing: Detention Do you presently have visiting nurse or other home services: Yes (at home had JAVA SQL DEVELOPER that came to visit her) Unable to assess alcohol history related to: Unknown Alcohol intake: never Comment: stand by assist with ambulation Patient Tobacco Use Status: Never used Tobacco Smoked in Last 30 Days: No Second Hand Smoke Exposure: No Use of substances other than those prescribed or required for medical reasons: No Advance Directives: Yes Advance Directives on File: Yes Advance Directives Date on File: 06/15/22 Do you have a plan to hurt others: No Plan service: No Current occupational status: retired Physical Exam ED Exam Exam: On examination she looks well she is not toxic-appearing comfortable in the stretcher Vital Signs: Vital Signs - 24 hr 03/02/25 10:05 03/02/25 10:43 03/02/25 11:40 Temperature 98.1 F 98.1 F Pulse Rate 88 88 75 Respiratory Rate 18 18 18 Blood Pressure 127/61 127/61 132/55 L Pulse Oximetry 95 95 100 Oxygen Delivery Method Nasal Cannula Nasal Cannula Room Air BMI result Body Mass Index 22.4 Looks well not toxic appearing Const General: cooperative Nutritional Appearance: average body habitus Orientation/consciousness: patient oriented x3 Limitations: no limitations HENMT Head: Yes normal to inspection Ears: hearing grossly normal bilaterally General nose exam: Normal external nose present Face and sinus: Yes normal facial exam Mouth: Normal oral and palatal mucosa present Teeth and gingiva: dentition normal Throat: Yes posterior oropharynx normal Neck Neck: Yes normal visual inspection Chest Chest palpation & inspection: normal inspection of the chest Resp Effort & Inspection: normal respiratory effort Cardio Jugular venous distension: no JVD Rate: regular rate Rhythm: regular rhythm GI Other: Abdomen is soft nontender no peritoneal sign Palpation (GI): Soft to palpation, not firm, nontender and no aortic enlargement Skin General skin exam: no rashes or lesions noted and elasticity normal Rashes: no rashes Neuro General: patient oriented x3 Medical Decision Making Medical Decision Making [facility] Narrative: Patient is here with possible allergic reaction to Augmentin, she has a multiple allergic reaction for antibiotic a CT scan 2 days ago was read normal she has no pain no fever I do not think she needs to be on antibiotic right now. White count was noted however she some prednisone. At this time she has stable vital signs she is not tachycardic temperature is 98.1 degrees my advice to the patient will be to stop the antibiotic Lab Data [facility] Lab Attestation statement: I reviewed the patient's lab results. 03/02/25 10:18 03/02/25 10:18 Labs: Lab Results 03/02/25 03/02/25 Range/Units 10:18 10:35 WBC 16.0 H (4.8-10.8) X10*3/uL RBC 3.44 L (4.20-5.50) X10*6/uL Hgb 11.7 L (12.0-16.0) g/dl Hct 34.1 L (37.0-47.0) % MCV 99.1 H (80.0-98.0) fL MCH 34.0 H (27.0-33.0) pg MCHC 34.3 (31.0-35.0) g/dl RDW 13.6 (11.0-16.0) % Plt Count 231 (160-400) X10*3/uL MPV 11.0 (9.4-12.3) fL Immature Gran % (Auto) 1.3 H (0.0-0.4) % Neut % (Auto) 84.5 H (45-73) % Lymph % (Auto) 7.5 L (20-40) % Lamb % (Auto) 5.8 (2-11) % Eos % (Auto) 0.5 (0-4) % Baso % (Auto) 0.4 (0-2) % Lymph # (Auto) 1.2 (1.2-4.9) X10*3/uL Lamb # (Auto) 0.9 (0.1-1.2) X10*3/uL Eos # (Auto) 0.1 (0.0-0.4) X10*3/uL Baso # (Auto) 0.1 (0.0-0.2) X10*3/uL Abs Immat Gran (auto) 0.21 H (0.00-0.03) X10*3/uL Absolute Neuts (auto) 13.5 H (2.0-8.3) x10*3/uL Absolute Nucleated RBC 0.000 (0.0-0.012) X10*3/uL Nucleated RBC % (auto) 0.0 (0.0-0.2) /100WBC Sodium 138 (135-145) mmol/L Potassium 3.2 L (3.3-5.1) mmol/L Chloride 98 (96-108) mmol/L Carbon Dioxide 30 H (22-29) mmol/L Anion Gap 13 (12-20) BUN 15 (9-16) mg/dL Creatinine 0.86 (0.5-1.4) mg/dL Estim Creat Clear Calc 40.5 Estimated GFR > 60 Random Glucose 157 H (60-115) mg/dL Calcium 10.0 (8.4-10.2) mg/dL Total Bilirubin 0.6 (0.0-1.0) mg/dL AST 29 (5-31) U/L ALT 18 (0-31) U/L Alkaline Phosphatase 67 (39-117) U/L Total Protein 6.8 (6.5-8.0) g/dL Albumin 3.8 (3.5-5.0) g/dL Urine Color Yellow Urine Appearance Clear Urine pH 7.0 (5.0-9.0) Ur Specific Roe <= 1.005 (1.005-1.025) Urine Protein Negative (Neg-Trace) mg/dL Urine Glucose (UA) Negative (Negative) mg/dL Urine Ketones Negative (Negative) mg/dL Urine Blood Negative (Negative) Urine Nitrite Negative (Negative) Ur Leukocyte Esterase Negative (Negative) External Record Review I have reviewed the emergency room visit of 2 days ago I have reviewed the CT scan done 2 days ago in this emergency department Discharge Plan Discharge Clinical Impression: Medication side effect Patient Disposition: Home, Self-Care Instructions: Adverse Drug Reaction (ED) Prescriptions: No Action Advair HFA 230-21 mcg/actuation HFA aerosol inhaler 2 puff inhalation BID 90 Days Qty: 36 4RF furosemide 40 mg tablet 80 mg PO BID Qty: 360 3RF metoprolol succinate [Toprol XL] 50 mg tablet extended release 24 hr 50 mg PO BID Qty: 180 3RF levocetirizine 5 mg tablet 5 mg PO DAILY 90 Days Qty: 90 3RF trazodone 50 mg tablet 100 mg PO BEDTIME Qty: 180 3RF meclizine 25 mg tablet 25 mg PO Q8H PRN (Reason: dizziness) 10 Days Qty: 30 0RF montelukast 10 mg tablet 10 mg PO DAILY Qty: 90 3RF albuterol sulfate 90 mcg/actuation HFA aerosol inhaler 2 inh inhalation Q6H PRN (Reason: shortness of breath or wheezing) 90 Days Qty: 3 3RF fluticasone propionate 50 mcg/actuation spray,suspension 2 spray intranasal DAILY 90 Days Qty: 3 3RF potassium chloride 20 mEq packet 40 meq PO DAILY levothyroxine [Synthroid] 25 mcg Tablet 50 mcg PO SUSA@0600 docusate sodium 100 mg Capsule 100 mg PO BID simethicone [Gas Relief (simethicone)] 80 mg Tablet,Chewable 80 mg PO QIDWMHS Qty: 20 0RF levothyroxine [Synthroid] 25 mcg tablet 25 mcg PO MOTUWETHFR@0600 folic acid 1 mg tablet 1 mg PO DAILY chlorhexidine gluconate 0.12 % mouthwash 10 ml PO BID rosuvastatin 10 mg tablet 10 mg PO MOWEFR@2100 warfarin [Jantoven] 1 mg tablet PO DAILY ferrous gluconate 324 mg (38 mg iron) tablet 324 mg PO QAM nitroglycerin [Nitrostat] 0.4 mg Tablet, Sublingual 0.4 mg sublingual Q5MX3 PRN (Reason: Chest Pain) 30 Days Qty: 30 0RF aspirin 81 mg tablet 81 mg PO DAILY Qty: 30 3RF cefuroxime axetil 250 mg tablet 250 mg PO Q12H 5 Days Qty: 10 0RF doxycycline monohydrate 100 mg capsule 100 mg PO BID 5 Days Qty: 10 0RF (DME) nebulizers Misc See Rx Instructions .Route Rx Instructions: As directed (DME) CPAP Machine/Device Device See Rx Instructions .Route Rx Instructions: As directed (DME) Oxygen Home Use Kit See Rx Instructions .Route Rx Instructions: As directed epinephrine 0.3 mg/0.3 mL auto-injector 0.3 mg IM USEASDIRECTD PRN (Reason: Allergic Reaction) diazepam 5 mg tablet 2.5 mg PO BID PRN (Reason: anxiety) prednisone 10 mg tablet 10 mg PO DIRECTED Rx Instructions: see taper instructions Referrals: Johnny Fang MD [Physician, Gastroenterology] - 03/12/25 Referral Note: Ct scan at [facility] showed / tumor they recommend colonoscopy Print Language: Upper Sorbian
[2025-03-02 12:40] VITALS: BP 132/55; PULSE 75; RESP 18; TEMP 36.6; O2SAT 100
== END 2025-03-02 12:41 | disposition home or self-care (01) ==
PROVIDERS: Emergency Provider Emergency Medicine; PCP Internal Medicine
DX: J44.9 Chronic obstructive pulmonary disease, unspecified (principal); T36.1X5A Adverse effect of cephalosporins and other beta-lactam antibiotics, initial encounter; Y92.9 Unspecified place or not applicable; R11.0 Nausea; T36.0X5A Adverse effect of penicillins, initial encounter; R19.7 Diarrhea, unspecified; G47.33 Obstructive sleep apnea (adult) (pediatric)
CPT/HCPCS: 36415; 80053; 81003; 85025; 99283; 99284

== ENCOUNTER 2025-03-12 13:03 | Emergency (ER) | payer MEDICARE, SELFPAY ==
--- NOTE | ~2025-03-12 | XR_ITS ---
EXAMINATION: XR CHEST CLINICAL INFORMATION: COUGH COMPARISON: October 11, 2024 TECHNIQUE: 2 views of the chest were obtained. FINDINGS: Stable volume loss in the left lung base likely from pleural fluid, thickening, and/or scarring. There is also linear scarring in the left third mid lung zone, unchanged. Lungs are otherwise clear. Heart size is stable. Metallic device projecting over the region of the mitral valve is unchanged. XR/XR chest 2V IMPRESSION: Stable small left pleural effusion and scarring Metallic mitral valve device. Electronically signed by: Roddy Agosto MD 03/12/2025 02:37 PM EDT
--- NOTE | ~2025-03-12 | US_ITS ---
EXAMINATION: US TRIPLEX LOWER EXTREMITY, BILATERAL CLINICAL INFORMATION: Anticoagulated, warfarin COMPARISON: None available. TECHNIQUE: Color-flow triplex imaging with spectral analysis and compression Doppler were performed on the bilateral lower extremities. FINDINGS: Respiratory variation, normal compression and augmented flow are noted throughout the bilateral lower extremities. The visualized common femoral vein, superficial femoral vein, profunda femoral vein, popliteal vein and midcalf peroneal and posterior tibial venous segments show no evidence of deep venous thrombosis bilaterally. A few thin plaque-like echogenic foci without posterior acoustic shadowing is present in the deep wall of the left popliteal vein. There is no Levy's cyst. US/US venous duplex LE BI IMPRESSION: No evidence of acute deep venous thrombosis involving the bilateral lower extremities. 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 Electronically signed by: Roddy Agosto MD 03/12/2025 02:11 PM EDT
[2025-03-12 13:12] VITALS: BP 139/61; PULSE 83; RESP 16; TEMP 36.8; O2SAT 100; BMI 23.2
--- NOTE | 2025-03-12 13:12 | ED_ITS ---
HPI - General Adult General Chief complaint: General Medical Stated complaint: swelling in legs Time Seen by Provider: 03/12/25 14:53 Source: patient Mode of arrival: ambulatory Limitations: no limitations History of Present Illness ED Provider: HPI narrative: Patient states she was sent here to ER when she called the PCP's office telling them that she has left lower extremity swelling, she has a history of factor 5 Leiden deficiency and uses warfarin with her therapeutic range 1.5 to 2 no dyspnea he reports some weight gain, her chest tingling radiating to her arms. Related Data Home Medications ?Medication ?Instructions ?Recorded ?Confirmed CPAP (CPAP Machine/Device) 06/30/22 11/11/24 Oxygen Home Use 06/30/22 11/11/24 nebulizers 06/30/22 11/11/24 epinephrine 0.3 mg/0.3 mL 0.3 mg IM USEASDIRECTD PRN 0 07/14/22 01/16/25 injection, auto-injector Allergic Reaction levothyroxine 25 mcg tablet 50 mcg PO SUSA@0600 01/16/25 (Synthroid) docusate sodium 100 mg capsule 100 mg PO BID 01/14/24 01/16/25 diazepam 5 mg tablet 2.5 mg PO BID PRN anxiety 01/16/25 chlorhexidine gluconate 0.12 % 10 ml PO BID 01/16/25 0 01/16/25 mouthwash ferrous gluconate 324 mg (38 mg 324 mg PO QAM 01/16/25 01/16/25 iron) tablet folic acid 1 mg tablet 1 mg PO DAILY 01/16/2501/16 levothyroxine 25 mcg tablet 25 mcg PO MOTUWETHFR@0600 01/16/25 01/16/25 (Synthroid) rosuvastatin 10 mg tablet 10 mg PO MOWEFR@2100 5 01/16/25 warfarin 1 mg tablet (Jantoven) mg PO DAILY 01/16/25 potassium chloride 20 mEq oral 40 meq PO DAILY 5 packet prednisone 10 mg tablet 10 mg PO DIRECTED 5 Previous Rx's ?Medication ?Instructions ?Recorded simethicone 80 mg chewable tablet 80 mg PO QIDWMHS #20 tabs 02/04/24 (Gas Relief (simethicone)) Advair HFA 230 mcg-21 2 puff inhalation BID 90 day s #36 03/13/24 mcg/actuation aerosol inhaler grams (fluticasone propion-salmeterol) furosemide 40 mg tablet 80 mg (2 x 40 mg) PO BID #36 0 tabs 05/01/24 metoprolol succinate 50 mg 50 mg PO BID #180 tabs 08/02 tablet,extended release 24 hr (Toprol XL) levocetirizine 5 mg tablet 5 mg PO DAILY 90 days #90 t abs 05/23/24 trazodone 50 mg tablet 100 mg (2 x 50 mg) PO BEDTIM E #180 07/01/24 tabs meclizine 25 mg tablet 25 mg PO Q8H PRN dizziness 1 0 days 07/22/24 #30 tabs montelukast 10 mg tablet 10 mg PO DAILY #90 tabs 08/10 12/01 albuterol sulfate 90 mcg/actuation 2 inh inhalation Q6 H PRN shortness 11/05/24 aerosol inhaler of breath or wheezing 90 day s #3 ea fluticasone propionate 50 2 spray intranasal DAILY 90 days 11/05/24 mcg/actuation nasal #3 ea spray,suspension aspirin 81 mg tablet 81 mg PO DAILY #30 tabs 01/07 nitroglycerin 0.4 mg sublingual 0.4 mg sublingual Q5MX 3 PRN Chest 01/16/25 tablet (Nitrostat) Pain 30 days #30 tabs cefuroxime axetil 250 mg tablet 250 mg PO Q12H 5 days #10 tabs 02/10/25 doxycycline monohydrate 100 mg 100 mg PO BID 5 days #1 0 caps 02/10/25 capsule Allergies Allergy/AdvReac Type Severity Reaction Status Date / Time morphine Allergy Severe Itching Verified 03/12/25 13:17 avocado (AVOCADO) Allergy Mild ITCHY Verified 03/12/25 13:17 THROAT, RASH azithromycin (AZITHROMYCIN) Allergy Mild ITCHY Verified 03/12/25 13:17 THROAT, RASH barium iodide (BARIUM IODIDE) Allergy Mild ITCHY Verified 03/12/25 13:17 THROAT, RASH barium sulfate Allergy Mild Itch Verified 03/12/25 13:17 bee pollen (BEE STINGS) Allergy Mild ITCHY Verified 03/12/25 13:17 THROAT, RASH ciprofloxacin (From CIPRO) Allergy Mild ITCHY Verified 03/12/25 13:17 THROAT, RASH clarithromycin (From BIAXIN) Allergy Mild ITCHY Verified 03/12/25 13:17 THROAT, RASH diatrizoate meglumine (From Allergy Mild ITCHY Verified 03/12/25 13:17 GASTROGRAFIN) THROAT, RASH diatrizoate sodium (From Allergy Mild ITCHY Verified 03/12/25 13:17 GASTROGRAFIN) THROAT, RASH diclofenac (From VOLTAREN) Allergy Mild ITCHY Verified 03/02/25 10:05 THROAT, RASH erythromycin base Allergy Mild ITCHY Verified 03/02/25 10:05 (ERYTHROMYCIN BASE) THROAT, RASH gentamicin (GENTAMICIN) Allergy Mild ITCHY Verified 03/02/25 10:05 THROAT, RASH Iodinated Contrast Media Allergy Mild ITCHY Verified 03/02/25 10:05 (IVP DYE) THROAT, RASH levofloxacin (From LEVAQUIN) Allergy Mild ITCHY Verified 03/02/25 10:05 THROAT, RASH metronidazole (From FLAGYL) Allergy Mild ITCHY Verified 03/02/25 10:05 THROAT, RASH moxifloxacin (From AVELOX) Allergy Mild ITCHY Verified 03/02/25 10:05 THROAT, RASH Penicillins (PENICILLINS) Allergy Mild ITCHY Verified 03/02/25 10:05 THROAT, RASH shrimp (SHRIMP) Allergy Mild ITCHY Verified 03/02/25 10:05 THROAT, RASH Sulfa (Sulfonamide Allergy Mild ITCHY Verified 03/02/25 10:05 Antibiotics) (SULFA THROAT, (SULFONAMIDE ANTIBIOTICS)) RASH vancomycin (VANCOMYCIN) Allergy Mild ITCHY Verified 03/02/25 10:05 THROAT, RASH clindamycin AdvReac Intermediate Unknown Verified 03/02/25 10:05 Review of Systems 2 Constitutional: Constitutional: Reports as per HPI [facility] Past Medical History Medical History Chest pain Chest pain Ankle pain Chronic hypercapnic respiratory failure KANDY treated with BiPAP COPD (chronic obstructive pulmonary disease) Open wound Warfarin anticoagulation Complex sleep apnea syndrome Leg pain Anemia Tachycardia DVT (deep venous thrombosis) Compression fracture of body of thoracic vertebra ASD (atrial septal defect) Pleuritic chest pain History of COVID-19 Chronic anticoagulation Hypothyroidism GERD (gastroesophageal reflux disease) Hyperlipidemia Hypertension Factor 5 Leiden mutation, heterozygous History of non-ST elevation myocardial infarction (NSTEMI) Hypoxia Anxiety PTSD (post-traumatic stress disorder) Hemoptysis Dyspnea Tracheobronchitis CLARA positive Diverticulitis Allergic bronchitis (HFpEF) heart failure with preserved ejection fraction Subarachnoid bleed Insomnia Anti-phospholipid antibody syndrome Hypogammaglobulinemia Chronic respiratory failure Arterial insufficiency of lower extremity Complex regional pain syndrome i of right lower limb Post herpetic neuralgia Pulmonary hypertension Pericardial effusion Pulmonary emboli Pleural effusion Radiation fibrosis of lung Pneumonitis Pulmonary nodules Lung cancer Surgical History History of colonoscopy History of lung surgery History of tonsillectomy History of hysterectomy S/P mitral valve clip implantation History of cardiac cath Family History Family History Sister No problems noted. Mother Cardiovascular disease Daughter Tachycardia Other KANDY (obstructive sleep apnea) Social History Social History Household Members: Other Housing: Senior Care Do you presently have visiting nurse or other home services: Yes (at home had DENTURE TECHNICIAN that came to visit her) Unable to assess alcohol history related to: Unknown Alcohol intake: never Comment: stand by assist with ambulation Patient Tobacco Use Status: Never used Tobacco Second Hand Smoke Exposure: No Advance Directives: Yes Advance Directives on File: Yes Advance Directives Date on File: 06/15/22 service: No Current occupational status: retired Physical Exam ED Vital Signs: Vital Signs - 24 hr 03/12/25 13:12 Temperature 98.2 F Pulse Rate 83 Respiratory Rate 16 Blood Pressure 139/61 Pulse Oximetry 100 Oxygen Delivery Method Nasal Cannula BMI result Body Mass Index 23.2 Const Other: * Gen: ?Overall well-appearing patient * HEENT: PERRLA, EOMI, MMM, * Neck: Supple, no LAD * CV: RRR, * Resp: ?No wheezing rales rhonchi no stridor moving air well * Abd: ?Bowel sounds are present, no tenderness no rebound no rigidity * MSK: Decreased muscle mass, possibly slightly more swollen left lower extremity than the right * Skin: Bruising from being on anti platelet 4/blood thinners * Neuro: ?Alert and oriented x3, moving upper and lower extremities symmetrically, no obvious facial asymmetry noted Course Course Course Narrative: This is a Rapid Medical Examination (RME) performed by Mariama Sims PA-C in triage. Full HPI, ROS, assessment and treatment plan per primary provider in the Main ED. Hx: 79 yo F hx of DVT and PE on warfarin here w/ b/l LE swelling (R>L). called doctor, advised to come to ED for US. reports INR has been below target around 1.2 yesterday (range 1.5-2). took 3mg warfarin last night. on 2l O2 at baseline, 2.5L at night. reports episode of tingling to chest and UEs last night w/ assoc elevated HR last night. Plan: labs, inr, us Medical Decision Making Medical Decision Making MDM Narrative: Reportedly Patient is sent to the ER by PCP when patient called the office to state that her lower extremities are swollen, she had an ultrasound that did not reveal any blood clots in her legs, physical examination is otherwise reassuring, nonspecific chest pain with no EKG changes and unremarkable blood work Differential as below, no hypoxic tachycardic to suspect PE she is breathing well no crackles nothing to suspect that she is in CHF Differential Diagnosis Differential Diagnoses: The differential diagnosis associated with the presentation includes (DVT, PE, CHF, ACS, dependent leg edema) Admission/Observation Consideration of admission/observation: Escalation of care including admission/observation considered 2022 Emergency Medicine Coding Guide from [employer] on 03/12/2025 All calculations should be rechecked by clinician prior to use RESULT SUMMARY: 5 Estimated Level of Service Problems: Moderate (4) Risk: High (5) Data: Extensive (5) NARRATIVE MDM: This patient's problem complexity is Moderate as patient: with chronic illness(es) with exacerbation/progression/side effects of treatment. This patient's risk is High due to: overall presentation requiring evaluation for a potentially High-risk process. This patient's data complexity is Extensive due to: -multiple tests ordered/reviewed -independent interpretation of imaging or EKG INPUTS: Number and Complexity ?> 3 = 4: chronic illness with exacerbation (c) Risk level ?> 4 = High Tests ordered ?> 3 = >= Tests results reviewed (excluding labs) ?> 2 = 2 Prior external notes reviewed ?> 0 = 0 Assessment requiring and independent historian ?> 0 = No Independent interpretation of tests ?> 1 = Yes Discussed management/test interpretation w/external professional ?> 0 = No Lab Data MDM Lab Attestation statement: I reviewed the patient's lab results. 03/12/25 14:48 03/12/25 14:48 Labs: Lab Results 03/12/25 03/12/25 Range/Units 14:23 14:48 WBC 12.2 H (4.8-10.8) X10*3/uL RBC 3.41 L (4.20-5.50) X10*6/uL Hgb 11.6 L (12.0-16.0) g/dl Hct 35.1 L (37.0-47.0) % MCV 102.9 H (80.0-98.0) fL MCH 34.0 H (27.0-33.0) pg MCHC 33.0 (31.0-35.0) g/dl RDW 14.1 (11.0-16.0) % Plt Count 218 (160-400) X10*3/uL MPV 10.7 (9.4-12.3) fL Immature Gran % (Auto) 1.1 H (0.0-0.4) % Neut % (Auto) 82.6 H (45-73) % Lymph % (Auto) 7.0 L (20-40) % Hinds % (Auto) 8.4 (2-11) % Eos % (Auto) 0.2 (0-4) % Baso % (Auto) 0.7 (0-2) % Lymph # (Auto) 0.9 L (1.2-4.9) X10*3/uL Hinds # (Auto) 1.0 (0.1-1.2) X10*3/uL Eos # (Auto) 0.0 (0.0-0.4) X10*3/uL Baso # (Auto) 0.1 (0.0-0.2) X10*3/uL Abs Immat Gran (auto) 0.13 H (0.00-0.03) X10*3/uL Absolute Neuts (auto) 10.1 H (2.0-8.3) x10*3/uL Absolute Nucleated RBC 0.000 (0.0-0.012) X10*3/uL Nucleated RBC % (auto) 0.0 (0.0-0.2) /100WBC PT 13.0 H D (10.9-12.4) SEC INR 1.1 (0.9-1.1) Sodium 139 (135-145) mmol/L Potassium 3.8 (3.3-5.1) mmol/L Chloride 101 (96-108) mmol/L Carbon Dioxide 30 H (22-29) mmol/L Anion Gap 12 (12-20) BUN 25 H (9-16) mg/dL Creatinine 0.82 (0.5-1.4) mg/dL Estim Creat Clear Calc 42.5 Estimated GFR > 60 Random Glucose 109 (60-115) mg/dL Calcium 10.0 (8.4-10.2) mg/dL Magnesium 2.7 H (1.6-2.6) mg/dL Total Bilirubin 0.4 (0.0-1.0) mg/dL AST 42 H (5-31) U/L ALT 25 (0-31) U/L Alkaline Phosphatase 74 (39-117) U/L Troponin I High Sens 14.4 D (<3.5-17.0) ng/L B-Natriuretic Peptide 642 H (<100) pg/mL Total Protein 7.2 (6.5-8.0) g/dL Albumin 3.9 (3.5-5.0) g/dL Influenza Type A (PCR) NEGATIVE (Negative) Influenza Type B (PCR) NEGATIVE (Negative) RSV RNA Qual (PCR) NEGATIVE (Negative) SARS-CoV-2 RNA (RT-PCR) NEGATIVE (Negative) Independent Interpretation I performed an independent interpretation of an: EKG (85 beats per minute, right bundle-branch block, no dysrhythmia no evidence for underlying ACS) and Plain X- Ray (Left-sided pleural effusion fairly stable from prior x-rays) Radiology Impression Discussion of test interpretation with radiology: I have reviewed the radiologist's reading. (No evidence of acute deep venous thrombosis involving the bilateral lower extremities. ) Discharge Plan Discharge Clinical Impression: Unilateral edema of lower extremity, Chest pain, precordial Patient Disposition: Home, Self-Care Instructions: Leg Edema (ED) Additional Instructions: Physical examination is consistent with dependent leg edema/chronic venous stasis, continue using compression stockings, your workup including blood work, EKG and ultrasound of the lower legs did not reveal any abnormalities, please follow up with the PCP for re-evaluation Prescriptions: No Action Advair HFA 230-21 mcg/actuation HFA aerosol inhaler 2 puff inhalation BID 90 Days Qty: 36 4RF furosemide 40 mg tablet 80 mg PO BID Qty: 360 3RF metoprolol succinate [Toprol XL] 50 mg tablet extended release 24 hr 50 mg PO BID Qty: 180 3RF levocetirizine 5 mg tablet 5 mg PO DAILY 90 Days Qty: 90 3RF trazodone 50 mg tablet 100 mg PO BEDTIME Qty: 180 3RF meclizine 25 mg tablet 25 mg PO Q8H PRN (Reason: dizziness) 10 Days Qty: 30 0RF montelukast 10 mg tablet 10 mg PO DAILY Qty: 90 3RF albuterol sulfate 90 mcg/actuation HFA aerosol inhaler 2 inh inhalation Q6H PRN (Reason: shortness of breath or wheezing) 90 Days Qty: 3 3RF fluticasone propionate 50 mcg/actuation spray,suspension 2 spray intranasal DAILY 90 Days Qty: 3 3RF potassium chloride 20 mEq packet 40 meq PO DAILY levothyroxine [Synthroid] 25 mcg Tablet 50 mcg PO SUSA@0600 docusate sodium 100 mg Capsule 100 mg PO BID simethicone [Gas Relief (simethicone)] 80 mg Tablet,Chewable 80 mg PO QIDWMHS Qty: 20 0RF levothyroxine [Synthroid] 25 mcg tablet 25 mcg PO MOTUWETHFR@0600 folic acid 1 mg tablet 1 mg PO DAILY chlorhexidine gluconate 0.12 % mouthwash 10 ml PO BID rosuvastatin 10 mg tablet 10 mg PO MOWEFR@2100 warfarin [Jantoven] 1 mg tablet PO DAILY ferrous gluconate 324 mg (38 mg iron) tablet 324 mg PO QAM nitroglycerin [Nitrostat] 0.4 mg Tablet, Sublingual 0.4 mg sublingual Q5MX3 PRN (Reason: Chest Pain) 30 Days Qty: 30 0RF aspirin 81 mg tablet 81 mg PO DAILY Qty: 30 3RF cefuroxime axetil 250 mg tablet 250 mg PO Q12H 5 Days Qty: 10 0RF doxycycline monohydrate 100 mg capsule 100 mg PO BID 5 Days Qty: 10 0RF (DME) nebulizers Misc See Rx Instructions .Route Rx Instructions: As directed (DME) CPAP Machine/Device Device See Rx Instructions .Route Rx Instructions: As directed (DME) Oxygen Home Use Kit See Rx Instructions .Route Rx Instructions: As directed epinephrine 0.3 mg/0.3 mL auto-injector 0.3 mg IM USEASDIRECTD PRN (Reason: Allergic Reaction) diazepam 5 mg tablet 2.5 mg PO BID PRN (Reason: anxiety) prednisone 10 mg tablet 10 mg PO DIRECTED Rx Instructions: see taper instructions Referrals: Caitlyn Bowie MD [Primary Care Provider, Internal Medicine] - 1 week Clinical Impression: Chest pain, precordial; Unilateral edema of lower extremity Print Language: South African
--- NOTE | 2025-03-12 13:16 | ECG_ITS ---
Test Reason : chest pain Blood Pressure : */* mmHG Vent. Rate : 85 BPM Atrial Rate : 85 BPM P-R Int : 172 ms QRS Dur : 142 ms QT Int : 418 ms P-R-T Axes : 70 -60 66 degrees QTcB Int : 497 ms Normal sinus rhythm Right bundle branch block Left anterior fascicular block Bifascicular block Abnormal ECG When compared with ECG of 10-Feb-2025 01:45, No significant change was found Referred By: Elizabeth Sims Electronically Signed By: Luis Eduardo Cadet
[2025-03-12 14:56] LABS: MANUAL DIFF FLAG NO
[2025-03-12 14:58] LABS: Hematocrit 35.1 % (37.0-47.0); Hemoglobin 11.6 g/dl (12.0-16.0); Imm Gran Abs Auto 0.13 X10*3/uL (0.00-0.03); Imm Gran Pct Auto 1.1 % (0.0-0.4); Lymphocytes Absolute Auto 0.9 X10*3/uL (1.2-4.9); Mean Corpuscular HGB Conc 33.0 g/dl (31.0-35.0); Mean Corpuscular Hemoglobin 34.0 pg (27.0-33.0); Mean Corpuscular Volume 102.9 fL (80.0-98.0); NRBC Abs Auto 0.000 X10*3/uL (0.0-0.012); NRBC Pct Auto 0.0 /100WBC (0.0-0.2); Platelet Count 218 X10*3/uL (160-400); Red Blood Count 3.41 X10*6/uL (4.20-5.50); White Blood Count 12.2 X10*3/uL (4.8-10.8)
[2025-03-12 15:06] LABS: INTERNATIONAL NORM RATIO 1.1 (0.9-1.1); Prothrombin Time 13.0 SEC (10.9-12.4)
[2025-03-12 15:17] LABS: Resp Syncy Virus RNA Qual PCR NEGATIVE (Negative); SARS COV2 PCR INHOUSE NEGATIVE (Negative)
[2025-03-12 15:18] LABS: Alanine Aminotransferase 25 U/L (0-31); Albumin Level 3.9 g/dL (3.5-5.0); Alkaline Phosphatase 74 U/L (39-117); Anion Gap 12 (12-20); Aspartate Amino Transferase 42 U/L (5-31); Blood Urea Nitrogen 25 mg/dL (9-16); Calcium 10.0 mg/dL (8.4-10.2); Carbon Dioxide 30 mmol/L (22-29); Chloride 101 mmol/L (96-108); Creatinine Clr Calc Pharmacy 42.5; Estimated Glomerular Filt Rate > 60; Magnesium 2.7 mg/dL (1.6-2.6); Potassium 3.8 mmol/L (3.3-5.1); Sodium 139 mmol/L (135-145); Total Protein 7.2 g/dL (6.5-8.0)
[2025-03-12 15:23] LABS: Troponin-I High Sensitivity 14.4 ng/L (<3.5-17.0)
[2025-03-12 15:59] LABS: B Type Natriuretic Peptide 642 pg/mL (<100)
[2025-03-12 16:25] VITALS: BP 139/61; PULSE 83; RESP 16; TEMP 36.8; O2SAT 100
--- OUTSIDE RECORDS SUMMARY | 2025-03-12 16:26 | XMS_ITS | Encounter Summary ---
Author Organization [facility] Address [address] [place] [phone] Care Team Providers Care Supervisor Rice Milling Name Role Phone Caitlyn Bowie MD Primary Care Provider +1- [phone] Encounter Details Date Type Department Care Team (Late st Contact Info) Description 02/20/2017 Scanned Document [facility] Health Information Management [address] [place] [id number] External, Provider Social History Tobacco Use Types [...] at [facility] [address] [facility] [address] [place], [place] [id number] Ronald Mills MD [address] [facility] [address] [place] [address] documented as of this encounter [...] as of this encounter Care Teams Supervisor Rice Milling Relationship Specialty Start Date End Date Caitlyn Bowie MD [address] [facility] [address] [place] [address] PCP - General Internal Medicine 05/06/21 Henry Kelly MD Pulmonary Department 175 [facility], [address] [place] [address] Physician Pulmonary Disease 09/06/17 06/22/20 documented as of this encounter
--- OUTSIDE RECORDS SUMMARY | 2025-03-12 16:26 | XMS_ITS | Encounter Summary ---
Author Organization [facility] Address [address] [place] [address] Care Team Providers Care Dinkey Locomotive Operator Name Role Phone Caitlyn Bowie MD Primary Care Provider +1- [phone] Encounter Details Date Type Department Care Team (Late st Contact Info) Description 02/20/2017 Scanned Document [facility] Health Information Management [address] [place] [id number] External, Provider Social History Tobacco Use Types [...] at [facility] [address] [facility] Building [address] [place], [place] [phone] Ronald Mills MD [address] [facility] [address] [place] [address] documented as of this encounter [...] [facility] 1 [place] [address] PCP - General Internal Medicine 05/06/21 Henry Kelly MD Pulmonary Department 175 [facility] [place] [address] Physician Pulmonary Disease 09/06/17 06/22/20 documented as of this encounter
--- OUTSIDE RECORDS SUMMARY | 2025-03-12 16:26 | XMS_ITS | Encounter Summary ---
Author Organization [facility] Address [address] [place] [address] Care Team Providers Care Spool Sander Name Role Phone Caitlyn Bowie MD Primary Care Provider +1- [phone] Encounter Details Date Type Department Care Team (Late st Contact Info) Description 07/08/2020 Scanned Document [facility] Health Information Management [address] [place] [address] External, Provider Social History Tobacco Use Types [...] [facility] [address] [facility] Building [address] [place], [place] [phone] Ronald Mills MD [address] [place] [address] [address] [place] [address] documented as of this [...] as of this encounter Care Teams Spool Sander Relationship Specialty Start Date End Date Caitlyn Bowie MD [address] [address] PCP - General Internal Medicine 05/06/21 documented as of this encounter
--- OUTSIDE RECORDS SUMMARY | 2025-03-12 16:26 | XMS_ITS | Encounter Summary ---
Author Organization [facility] Address [address] [place] [address] Care Team Providers Care Supervisor Hot Dip Tinning Name Role Phone Caitlyn Bowie MD Primary Care Provider +1- [phone] Encounter Details Date Type Department Care Team (Late st Contact Info) Description 05/19/2020 Scanned Document [facility] at [address] [address] External, Provider Social History Tobacco Use Types [...] [facility] 240 [facility] Building [address] [place], [place] [phone] Ronald Mills MD [address] [place] [address] [address] [place] [address] documented as of this encounter [...] as of this encounter Care Teams Supervisor Hot Dip Tinning Relationship Specialty Start Date End Date Caitlyn Bowie MD [address] [facility] 1 [place] [address] PCP - General Internal Medicine 05/06/21 Henry Kelly MD Pulmonary Department 175 [facility], [address] [place] [address] Physician Pulmonary Disease 09/06/17 06/22/20 documented as of this encounter
--- OUTSIDE RECORDS SUMMARY | 2025-03-12 16:26 | XMS_ITS | Encounter Summary ---
Author Organization [facility] Address [address] [place] [address] Care Team Providers Care Financial Aid Officer Name Role Phone Caitlyn Bowie MD Primary Care Provider +1- [phone] Encounter Details Date Type Department Care Team (Late st Contact Info) Description 05/14/2020 Documentation Hematology Program at [address] [address] Taya Nuno RN Social History Tobacco Use [...] 4:00 PM EDT Telemedicine Cancer Center at [address] [place] [address] Ronald Mills MD [address] [place] [phone] documented as of this encounter Visit Diagnoses Not on filedocumented in this encounter Additional Health Concerns Infection Onset Date Last Indicated Resolved Time COVID-19 03/05/2022 03/05/2022 03/15/2022 7:18 PM EDT Assessment Noted Time PHQ-9 Depression Total Score: 2 11/07/19 19 2:06 PM EDT documented as of this encounter Care Teams Financial Aid Officer Relationship Specialty Start Date End Date Caitlyn Bowie MD [address] [facility] [address] [place] [address] PCP - General Internal Medicine 05/06/21 Henry Kelly MD Pulmonary Department [address] [facility], [address] [place] [address] Physician Pulmonary Disease 09/06/17 06/22/20 documented as of this encounter
--- OUTSIDE RECORDS SUMMARY | 2025-03-12 16:27 | XMS_ITS | Encounter Summary ---
Author Organization [facility] Address [address] [place] [phone] Care Team Providers Care Die Forger Name Role Phone Caitlyn Bowie MD Primary Care Provider +1- [phone] Encounter Details Date Type Department Care Team (Late st Contact Info) Description 11/29/2019 Scanned Document [facility] Health Information Management [address] [place] [phone] External, Provider Social History Tobacco Use Types [...] Center at [facility] [address] [facility] Building [address] [place], [place] [phone] Ronald Mills MD [address] [place] [address] [address] [place] [address] documented as of this encounter [...] as of this encounter Care Teams Die Forger Relationship Specialty Start Date End Date Caitlyn Bowie MD [address] [facility] 1 [place] [address] PCP - General Internal Medicine 05/06/21 Henry Kelly MD Pulmonary Department 175 [facility], [address] [place] [address] Physician Pulmonary Disease 09/06/17 06/22/20 documented as of this encounter
--- OUTSIDE RECORDS SUMMARY | 2025-03-12 16:27 | XMS_ITS | Encounter Summary ---
Author Organization [facility] and [facility] Address [address] [place] [address] Care Team Providers Care Agricultural Systems Specialist Name Role Phone Caitlyn Bowie MD Primary Care Provider +1- [phone] Encounter Details Date Type Department Care Team (Late st Contact Info) Description 06/27/2019 Scanned Document Onco-Oncology Program at [address] [place] [address] Norma Renee MD [address] [place] [address] 2 [place] [address] Social History Tobacco Use Types [...] PM EDT Telemedicine Cancer Center at [address] [place], [place] [phone] Ronald Mills MD 240 [facility] A1 [place] [address] documented as of this encounter Visit Diagnoses Not on filedocumented in this encounter Additional Health Concerns Infection Onset Date Last Indicated Resolved Time COVID-19 03/05/2022 03/05/2022 03/15/2022 7:18 PM EDT Assessment Noted Time PHQ-9 Depression Total Score: 2 11/07/19 19 2:06 PM EDT documented as of this encounter Care Teams Agricultural Systems Specialist Relationship Specialty Start Date End Date Caitlyn Bowie MD 3400 [facility] 1 [place] [address] PCP - General Internal Medicine 05/06/21 Henry Kelly MD Pulmonary Department 175 [facility], [address] [place] [address] Physician Pulmonary Disease 09/06/17 06/22/20 documented as of this encounter
--- OUTSIDE RECORDS SUMMARY | 2025-03-12 16:27 | XMS_ITS | Clinical Summary ---
Author Organization [facility] Address [address] [place] [address] Care Team Providers Care Risk Control Field Representative Name Role Phone Brennan Burnett MD Primary Care Provider [phone] Allergies Active Allergy Reactions Criticality Noted Date [...] age to complete this topic Care Teams Risk Control Field Representative Relationship Specialty Start Date End Date Brennan Burnett MD [address] [place] [address] PCP - General Internal Medicine 07/06/20
--- OUTSIDE RECORDS SUMMARY | 2025-03-12 16:27 | XMS_ITS | Encounter Summary ---
Author Organization [facility] and [facility] Address 20 [place] [address] Care Team Providers Care Community Nurse Name Role Phone Caitlyn Bowie MD Primary Care Provider +1- [phone] Encounter Details Date Type Department Care Team (Latest Contact Info) Description 04/15/2013 Transcribed Orders [facility] 800 [place] [address] Tian Atwood MD 280 [address] [facility] 102 [place] [address] Unspecified hypothyroidism (Primary Dx) Social [...] Center at [facility] 240 [facility] Building [address] [place] [address] Ronald Mills MD 240 [facility] A1 [place] [address] documented as of this encounter Results * Copper, serum total (YH) (04/15/2013 4:31 PM EDT) Copper, Serum Total SEE BELOW [facility] Comment: Test Result Flag Unit RefValue Copper, S 1.35 mcg/mL 0.75-1.45 04/15/2013 4:31 PM EDT us Tian Atwood MD LAB BLOOD ORDERABLES Final R esult [facility] [address] [place] [address] documented in this encounter Visit Diagnoses Diagnosis Unspecified hypothyroidism- Primary documented in this encounter Additional Health Concerns Infection Onset Date Last Indicated Resolved Time COVID-19 03/05/2022 03/05/2022 03/15/2022 7:18 PM EDT documented as of this encounter Care Teams Community Nurse Relationship Specialty Start Date End Date Caitlyn Bowie MD 3400 [facility] 1 [place] [address] PCP - General Internal Medicine 05/06/21 Henry Kelly MD Pulmonary Department 175 [facility], [address] [place] [address] Physician Pulmonary Disease 09/06/17 06/22/20 documented as of this encounter
--- OUTSIDE RECORDS SUMMARY | 2025-03-12 16:27 | XMS_ITS | Encounter Summary ---
Author Organization [facility] Address [address] [place] [address] Phone Care Team Providers Care Mobile Ui Developer Name Role Phone Caitlyn Bowie MD Primary Care Provider +1- [phone] Encounter Details Date Type Department Care Team (Late Contact Info) Description 12/10/2024 Documentation Only [facility] [address] [place] [address] Marina Abdi [address] [place] [address] Social History Tobacco Use Types [...] [facility] [address] [place] [address] Rubén Ashraf MD [address] [place] [address] [place] [address] documented as of this encounter Visit Diagnoses Not on filedocumented in this encounter Care Teams Mobile Ui Developer Relationship Specialty Start Date End Date Caitlyn Bowie MD 3400 [place], [place] PCP - General Internal Medicine 09/24/24 documented as of this encounter
--- OUTSIDE RECORDS SUMMARY | 2025-03-12 16:27 | XMS_ITS | Encounter Summary ---
Author Organization [facility] Address [address] [place] [address] Phone Care Team Providers Care Environmental Air Specialist Name Role Phone Caitlyn Bowie MD Primary Care Provider +1- [phone] Encounter Details Date Type Department Care Team (Late Contact Info) Description 12/10/2024 Documentation Only [facility] [address] [place] [address] Marina Abdi 2[address] [place] [address] Social History Tobacco Use Types [...] Visit [facility] [address] [place] [address] Rubén Ashraf MD [address] [place] [address] [place] [address] documented as of this encounter Visit Diagnoses Not on filedocumented in this encounter Care Teams Environmental Air Specialist Relationship Specialty Start Date End Date Caitlyn Bowie MD 3400 [place], [place] PCP - General Internal Medicine 09/24/24 documented as of this encounter
--- OUTSIDE RECORDS SUMMARY | 2025-03-12 16:27 | XMS_ITS | Encounter Summary ---
Author Organization [facility] and [facility] Address [address] [place] [address] Care Team Providers Care Branch Mechanic Name Role Phone Caitlyn Bowie MD Primary Care Provider +1- [phone] Encounter Details Date Type Department Care Team (Late st Contact Info) Description 09/15/2020 Scanned Document INTERFACE DEFAULT [address] [place] [address] System, Provider Not In Social History Tobacco [...] Cancer Center at [facility] 240 [facility] Building [address] [place] [address] Ronald Mills MD [address] [place] [address] A1 [place] [address] documented as of this encounter Visit Diagnoses Not on filedocumented in this encounter Additional Health Concerns Infection Onset Date Last Indicated Resolved Time COVID-19 03/05/2022 03/05/2022 03/15/2022 7:18 PM EDT Assessment Noted Time PHQ-9 Depression Total Score: 2 11/07/19 19 2:06 PM EDT documented as of this encounter Care Teams Branch Mechanic Relationship Specialty Start Date End Date Caitlyn Bowie MD [address] [address] PCP - General Internal Medicine 05/06/21 documented as of this encounter
--- OUTSIDE RECORDS SUMMARY | 2025-03-12 16:27 | XMS_ITS | Encounter Summary ---
Author Organization [facility] and [facility] Address [address] [place] [address] Care Team Providers Care Acrylic Fabricator Name Role Phone Caitlyn Bowie MD Primary Care Provider +1- [phone] Encounter Details Date Type Department Care Team (Late Contact Info) Description 09/18/2020 Scanned Document [facility] Health Information Management [address] [place] [address] External, Provider Social History Tobacco Use Types [...] [facility] 240 [facility] Building [address] [place], [place] [phone] Ronald Mills MD [address] [place] [address] [address]1 [place] [address] documented as of this encounter [...] documented as of this encounter Care Teams Acrylic Fabricator Relationship Specialty Start Date End Date Caitlyn Bowie MD [address] [address] PCP - General Internal Medicine 05/06/21 documented as of this encounter
--- OUTSIDE RECORDS SUMMARY | 2025-03-12 16:27 | XMS_ITS | Encounter Summary ---
Author Organization [facility] and [facility] Address [address] [place] [address] Care Team Providers Care Resident Services Manager Name Role Phone Caitlyn Bowie MD Primary Care Provider +1- [phone] Encounter Details Date Type Department Care Team (Late st Contact Info) Description 07/26/2012 Abstract [facility] Health Information Management [address] [place] [address] [place], Primary Care [address] [place] [address] Social History Tobacco Use Types Packs/Day Years [...] 4:00 PM EDT Telemedicine Cancer Center at [address] [place], [place] [address] Ronald Mills MD [address] [place] [address] [place] [address] documented as of this encounter Visit Diagnoses Not on filedocumented in this encounter Additional Health Concerns Infection Onset Date Last Indicated Resolved Time COVID-19 03/05/2022 03/05/2022 03/15/2022 7:18 PM EDT documented as of this encounter Care Teams Resident Services Manager Relationship Specialty Start Date End Date Caitlyn Bowie MD 3400 [facility] 1 [place] [address] PCP - General Internal Medicine 05/06/21 Henry Kelly MD Pulmonary Department 175 [facility], [address] [place] [address] Physician Pulmonary Disease 09/06/17 06/22/20 documented as of this encounter
--- OUTSIDE RECORDS SUMMARY | 2025-03-12 16:27 | XMS_ITS | Encounter Summary ---
Author Organization [facility] and [facility] Address [address] [place] [address] Care Team Providers Care Pen Rider Name Role Phone Caitlyn Bowie MD Primary Care Provider +1- [phone] Encounter Details Date Type Department Care Team (Late st Contact Info) Description 12/16/2016 Scanned Document [facility] Health Information Management [address] [place] [address] External, Provider Social History Tobacco Use Types [...] – [facility] 240 [facility] Building [address] [place], [place] [phone] Ronald Mills MD 240 [facility] Max [address]1 [place] [address] documented as of this encounter [...] documented as of this encounter Care Teams Pen Rider Relationship Specialty Start Date End Date Caitlyn Bowie MD 3400 [facility] 1 [place] [address] PCP - General Internal Medicine 05/06/21 Henry Kelly MD Pulmonary Department 175 [facility], [address] [place] [address] Physician Pulmonary Disease 09/06/17 06/22/20 documented as of this encounter
--- OUTSIDE RECORDS SUMMARY | 2025-03-12 16:27 | XMS_ITS | Encounter Summary ---
Author Organization [facility] and [facility] Address [address] [place] [address] Care Team Providers Care Applied Computer Science Professor Name Role Phone Caitlyn Bowie MD Primary Care Provider +1- [phone] Encounter Details Date Type Department Care Team (Late st Contact Info) Description 12/16/2016 Scanned Document [facility] Health Information Management [address] [place] [address] External, Provider Social History Tobacco Use [...] [facility] [address] [facility] Building [address] [place], [place] [phone] Ronald Mills MD 240 [facility] A1 [place] [address] documented as of this encounter [...] documented as of this encounter Care Teams Applied Computer Science Professor Relationship Specialty Start Date End Date Caitlyn Bowie MD [facility]0 [facility] 1 [place] [address] PCP - General Internal Medicine 05/06/21 Henry Kelly MD Pulmonary Department [address] [facility], [address] [place] [address] Physician Pulmonary Disease 09/06/17 06/22/20 documented as of this encounter
--- OUTSIDE RECORDS SUMMARY | 2025-03-12 16:27 | XMS_ITS | Encounter Summary ---
Author Organization [facility] and [facility] Address [address] [place] [address] Care Team Providers Care Snuff Drier Name Role Phone Caitlyn Bowie MD Primary Care Provider +1- [phone] Encounter Details Date Type Department Care Team (Late Contact Info) Description 09/15/2020 Scanned Document [facility] Health Information Management [address] [place] [address] External, Provider Social History Tobacco Use Types [...] Center at [facility] 240 [facility] Building [address] [place], [place] [phone] Ronald Mills MD [address] [place] [address] [address]1 [place] [address] documented as of this encounter [...] as of this encounter Care Teams Snuff Drier Relationship Specialty Start Date End Date Caitlyn Bowie MD [address] [address] PCP - General Internal Medicine 05/06/21 documented as of this encounter
--- OUTSIDE RECORDS SUMMARY | 2025-03-12 16:27 | XMS_ITS | Encounter Summary ---
Author Organization [facility] and [facility] Address [address] [place] [address] Care Team Providers Care Bluing Oven Tender Name Role Phone Caitlyn Bowie MD Primary Care Provider +1- [phone] Encounter Details Date Type Department Care Team (Late st Contact Info) Description 06/27/2019 Scanned Document Onco-Oncology Program at [address] [place] [address] Norma Renee MD [address] [place] [address] 2 [place] [address] Social History Tobacco Use Types [...] PM EDT Telemedicine Cancer Center at [address] [place], [place] [phone] Ronald Mills MD 240 [facility] A1 [place] [address] documented as of this encounter Visit Diagnoses Not on filedocumented in this encounter Additional Health Concerns Infection Onset Date Last Indicated Resolved Time COVID-19 03/05/2022 03/05/2022 03/15/2022 7:18 PM EDT Assessment Noted Time PHQ-9 Depression Total Score: 2 11/07/19 19 2:06 PM EDT documented as of this encounter Care Teams Bluing Oven Tender Relationship Specialty Start Date End Date Caitlyn Bowie MD 3400 [facility] 1 [place] [address] PCP - General Internal Medicine 05/06/21 Henry Kelly MD Pulmonary Department 175 [facility], [address] [place] [address] Physician Pulmonary Disease 09/06/17 06/22/20 documented as of this encounter
--- OUTSIDE RECORDS SUMMARY | 2025-03-12 16:27 | XMS_ITS | Encounter Summary ---
Author Organization [facility] Address [address] [place] [address] Care Team Providers Care Office Electrician Name Role Phone Caitlyn Bowie MD Primary Care Provider +1- [phone] Encounter Details Date Type Department Care Team (Late st Contact Info) Description 04/18/2013 Documentation Hematology Program at [address] [address] Isis Ragland RN Social History Tobacco Use [...] [facility] 240 [facility] Building [address] [place], [place] [phone] Ronald Mills MD 240 [facility] A1 [place] [address] documented as of this encounter Visit Diagnoses Not on filedocumented in this encounter Additional Health Concerns Infection Onset Date Last Indicated Resolved Time COVID-19 03/05/2022 03/05/2022 03/15/2022 7:18 PM EDT documented as of this encounter Care Teams Office Electrician Relationship Specialty Start Date End Date Caitlyn Bowie MD 3400 [facility] 1 [place] [address] PCP - General Internal Medicine 05/06/21 Henry Kelly MD Pulmonary Department 175 [facility], [address] [place] [address] Physician Pulmonary Disease 09/06/17 06/22/20 documented as of this encounter
--- OUTSIDE RECORDS SUMMARY | 2025-03-12 16:27 | XMS_ITS | Encounter Summary ---
Author Organization [facility] and [facility] Address [address] [place] [address] Care Team Providers Care Sergeant Of Officers Name Role Phone Caitlyn Bowie MD Primary Care Provider +1- [phone] Encounter Details Date Type Department Care Team (Late st Contact Info) Description 12/16/2016 Scanned Document [facility] Health Information Management [address] [place] [address] External, Provider Social History Tobacco Use Types [...] – [facility] 240 [facility] Building [address] [place], [place] [phone] Ronald Mills MD 240 [facility] Max [address]1 [place] [address] documented as of this encounter Procedures Procedure Name Priority Date/Time Associated Diagnosis Comments CARDIAC MISC. RESULT SCAN Routine 12/16/2016 documented in this encounter Results * Cardiac Misc.?? Result Scan (12/16/2016) us Provider External CV CARDIAC REPORT (CVR) Edited Result - Final documented in this encounter Visit Diagnoses Not on filedocumented in this encounter Additional Health Concerns Infection Onset Date Last Indicated Resolved Time COVID-19 03/05/2022 03/05/2022 03/15/2022 7:18 PM EDT documented as of this encounter Care Teams Sergeant Of Officers Relationship Specialty Start Date End Date Caitlyn Bowie MD 3400 [facility] 1 [place] [address] PCP - General Internal Medicine 05/06/21 Henry Kelly MD Pulmonary Department 175 [facility], [address] [place] [address] Physician Pulmonary Disease 09/06/17 06/22/20 documented as of this encounter
--- OUTSIDE RECORDS SUMMARY | 2025-03-12 16:27 | XMS_ITS | Encounter Summary ---
Author Organization [facility] and [facility] Address 20 [place] [address] Care Team Providers Care Bread Jockey Name Role Phone Caitlyn Bowie MD Primary Care Provider +1- [phone] Encounter Details Date Type Department Care Team (Late st Contact Info) Description 09/15/2020 Scanned Document Cancer Center at [address] [address] External, Provider Social History Tobacco Use Types [...] [facility] 240 [facility] Building [address] [place], [place] [phone] Ronald Mills MD [address] [place] [address] [address]1 [place] [address] documented as of this encounter [...] documented as of this encounter Care Teams Bread Jockey Relationship Specialty Start Date End Date Caitlyn Bowie MD [address] [address] PCP - General Internal Medicine 05/06/21 documented as of this encounter
--- OUTSIDE RECORDS SUMMARY | 2025-03-12 16:27 | XMS_ITS | Encounter Summary ---
Author Organization [facility] and [facility] Address 20 [place] [address] Care Team Providers Care Runner Out Name Role Phone Caitlyn Bowie MD Primary Care Provider +1- [phone] Encounter Details Date Type Department Care Team (Late st Contact Info) Description 09/07/2020 Scanned Document Cardiovascular Medicine at [address] [place] [address] Norma Renee MD [address] [place] [phone] Social History Tobacco Use Types Packs/Day Years [...] 4:00 PM EDT Telemedicine Cancer Center at [address] [place] [address] Ronald Mills MD [address] [place] [address] [address]1 [place] [address] documented as of this encounter Visit Diagnoses Not on filedocumented in this encounter Additional Health Concerns Infection Onset Date Last Indicated Resolved Time COVID-19 03/05/2022 03/05/2022 03/15/2022 7:18 PM EDT Assessment Noted Time PHQ-9 Depression Total Score: 2 11/07/19 19 2:06 PM EDT documented as of this encounter Care Teams Runner Out Relationship Specialty Start Date End Date Caitlyn Bowie MD [address] [address] PCP - General Internal Medicine 05/06/21 documented as of this encounter
--- OUTSIDE RECORDS SUMMARY | 2025-03-12 16:27 | XMS_ITS | Encounter Summary ---
Author Organization [facility] Address [address] [place] [address] Phone Care Team Providers Care Bar Manager Name Role Phone Caitlyn Bowie MD Primary Care Provider +1- [phone] Encounter Details Date Type Department Care Team (Late Contact Info) Description 12/10/2024 Documentation Only [facility] [address] [place] [address] Marina Abdi [address]150 [place] [address] Social History Tobacco Use Types [...] Visit [facility] [address] [place] [address] Rubén Ashraf MD [address] [place] [address] [place] [address] documented as of this encounter Visit Diagnoses Not on filedocumented in this encounter Care Teams Bar Manager Relationship Specialty Start Date End Date Caitlyn Bowie MD 3400 [place], [place] PCP - General Internal Medicine 09/24/24 documented as of this encounter
--- OUTSIDE RECORDS SUMMARY | 2025-03-12 16:27 | XMS_ITS | Encounter Summary ---
Author Organization [facility] Address 20 [place] [address] Care Team Providers Care Car Packer Name Role Phone Caitlyn Bowie MD Primary Care Provider +1- [phone] Encounter Details Date Type Department Care Team (Late st Contact Info) Description 06/21/2012 Abstract [facility] Neck Cancers Program at [address] [phone] Mikel Lloyd MD [address] [place] [address] (Fax) Social History Tobacco Use Types Packs/Day [...] [facility] 240 [facility] Building [address] [place] [address] Ronald Mills MD 240 [facility] Max A1 [place] [address] documented as of this encounter Visit Diagnoses Not on filedocumented in this encounter Additional Health Concerns Infection Onset Date Last Indicated Resolved Time COVID-19 03/05/2022 03/05/2022 03/15/2022 7:18 PM EDT documented as of this encounter Care Teams Car Packer Relationship Specialty Start Date End Date Caitlyn Bowie MD 3400 [facility] 1 [place] [address] PCP - General Internal Medicine 05/06/21 Henry Kelly MD Pulmonary Department [address] [place] [address], [address] [place] [address] Physician Pulmonary Disease 09/06/17 06/22/20 documented as of this encounter
--- OUTSIDE RECORDS SUMMARY | 2025-03-12 16:27 | XMS_ITS | Encounter Summary ---
Author Organization [facility] Address [address] [place] [address] Care Team Providers Care Vegetable I Farmworker Name Role Phone Caitlyn Bowie MD Primary Care Provider +1- [phone] Encounter Details Date Type Department Care Team (Late st Contact Info) Description 12/19/2016 Scanned Document [facility] Health Information Management [address] [place] [address] External, Provider Social History Tobacco Use Types [...] [facility] Building [address] [place], [place] [address] Ronald Mills MD 240 [facility] Max A1 [place] [address] documented as of this encounter [...] as of this encounter Care Teams Vegetable I Farmworker Relationship Specialty Start Date End Date Caitlyn Bowie MD [facility]0 [facility] 1 [place] [address] PCP - General Internal Medicine 05/06/21 Henry Kelly MD Pulmonary Department 175 [facility], [address] [place] [address] Physician Pulmonary Disease 09/06/17 06/22/20 documented as of this encounter
--- OUTSIDE RECORDS SUMMARY | 2025-03-12 16:27 | XMS_ITS | Encounter Summary ---
Author Organization [facility] Address [address] [place] [address] Phone Care Team Providers Care Netbackup Engineer Name Role Phone Caitlyn Bowie MD Primary Care Provider +1- [phone] Encounter Details Date Type Department Care Team (Late Contact Info) Description 12/10/2024 Documentation Only [facility] [address] [place] [address] Marina Abdi [address] [place] [address] Social History Tobacco Use Types [...] Visit [facility] [address] [place] [address] Rubén Ashraf MD [address] [place] [address] [place] [address] documented as of this encounter Visit Diagnoses Not on filedocumented in this encounter Care Teams Netbackup Engineer Relationship Specialty Start Date End Date Caitlyn Bowie MD [address] [place], [place] PCP - General Internal Medicine 09/24/24 documented as of this encounter
--- OUTSIDE RECORDS SUMMARY | 2025-03-12 16:27 | XMS_ITS | Encounter Summary ---
Author Organization [facility] and [facility] Address [address] [place] [address] Care Team Providers Care Fish Egg Packer Name Role Phone Caitlyn Bowie MD Primary Care Provider +1- [phone] Encounter Details Date Type Department Care Team (Late st Contact Info) Description 12/16/2016 Scanned Document [facility] Health Information Management [address] [place] [address] External, Provider Social History Tobacco Use Types [...] [facility] [address] [facility] [address] [place], [place] [phone] Ronald Mills MD 240 [facility] [address] [place] [address] documented as of this encounter [...] as of this encounter Care Teams Fish Egg Packer Relationship Specialty Start Date End Date Caitlyn Bowie MD 3400 [facility] 1 [place] [address] PCP - General Internal Medicine 05/06/21 Henry Kelly MD Pulmonary Department 175 [facility], [address] [place] [address] Physician Pulmonary Disease 09/06/17 06/22/20 documented as of this encounter
--- OUTSIDE RECORDS SUMMARY | 2025-03-12 16:27 | XMS_ITS | Encounter Summary ---
Author Organization [facility] Address [address] [place] [address] Care Team Providers Care Hog Cooler Name Role Phone Caitlyn Bowie MD Primary Care Provider +1- [phone] Encounter Details Date Type Department Care Team (Late Contact Info) Description 09/16/2020 Scanned Document [facility] Health Information Management [address] [place] [address] External, Provider Social History Tobacco Use Types [...] [facility] 240 [facility] Building [address] [place], [place] [phone] Ronald Mills MD [address] [place] [address] [address] [place] [address] documented as of this encounter [...] documented as of this encounter Care Teams Hog Cooler Relationship Specialty Start Date End Date Caitlyn Bowie MD [address] [address] PCP - General Internal Medicine 05/06/21 documented as of this encounter
--- OUTSIDE RECORDS SUMMARY | 2025-03-12 16:27 | XMS_ITS | Encounter Summary ---
Author Organization [facility] Address 20 [place] [address] Care Team Providers Care Dry Cleaner Name Role Phone Caitlyn Bowie MD Primary Care Provider +1- [phone] Encounter Details Date Type Department Care Team (Late st Contact Info) Description 08/29/2019 Scanned Document [facility] at [address] [address] External, Provider Social History Tobacco Use Types [...] [facility] Building [address] [place], [place] [phone] Ronald Mills MD [address] [place] [address] [address] [place] [address] documented as of this [...] as of this encounter Care Teams Dry Cleaner Relationship Specialty Start Date End Date Caitlyn Bowie MD 3400 [facility] 1 [place] [address] PCP - General Internal Medicine 05/06/21 Henry Kelly MD Pulmonary Department 175 [facility], [address] [place] [address] Physician Pulmonary Disease 09/06/17 06/22/20 documented as of this encounter
--- OUTSIDE RECORDS SUMMARY | 2025-03-12 16:27 | XMS_ITS | Encounter Summary ---
Author Organization [facility] Address [address] [place] [address] Care Team Providers Care Hosiery Operator Name Role Phone Caitlyn Bowie MD Primary Care Provider +1- [phone] Encounter Details Date Type Department Care Team (Late Contact Info) Description 09/09/2020 Scanned Document [facility] Health Information Management [address] [place] [address] External, Provider Social History Tobacco Use Types [...] [facility] at [facility] 240 [facility] Building [address] [place], [place] [phone] Ronald Mills MD [address] [place] [address] [address] [place] [address] documented as of this encounter [...] documented as of this encounter Care Teams Hosiery Operator Relationship Specialty Start Date End Date Caitlyn Bowie MD [address] [address] PCP - General Internal Medicine 05/06/21 documented as of this encounter
--- OUTSIDE RECORDS SUMMARY | 2025-03-12 16:27 | XMS_ITS | Encounter Summary ---
Author Organization [facility] and [facility] Address [address] [place] [address] Care Team Providers Care Gear Tooth Grinding Machine Operator Name Role Phone Caitlyn Bowie MD Primary Care Provider +1- [phone] Encounter Details Date Type Department Care Team (Late st Contact Info) Description 12/16/2016 Scanned Document [facility] Health Information Management [address] [place] [address] External, Provider Social History Tobacco Use Types [...] at [facility] 240 [facility] Building [address] [place], [place] [phone] Ronald Mills MD 240 [facility] [address]1 [place] [address] documented as of this encounter Visit Diagnoses Not on filedocumented in this encounter Additional Health Concerns Infection Onset Date Last Indicated Resolved Time COVID-19 03/05/2022 03/05/2022 03/15/2022 7:18 PM EDT documented as of this encounter Care Teams Gear Tooth Grinding Machine Operator Relationship Specialty Start Date End Date Caitlyn Bowie MD 3400 [facility] 1 [place] [address] PCP - General Internal Medicine 05/06/21 Henry Kelly MD Pulmonary Department 175 [facility], [address] [place] [address] Physician Pulmonary Disease 09/06/17 06/22/20 documented as of this encounter
--- OUTSIDE RECORDS SUMMARY | 2025-03-12 16:27 | XMS_ITS | Encounter Summary ---
Author Organization [facility] Address [address] [place] [address] Phone Care Team Providers Care Continuous Process Tanner Rotary Drum Name Role Phone Caitlyn Bowie MD Primary Care Provider +1- [phone] Encounter Details Date Type Department Care Team (Late Contact Info) Description 12/10/2024 Documentation Only [facility] [address] [place] [address] Marina Abdi [address] [place] [address] Social History Tobacco Use Types [...] Visit [facility] [address] [place] [address] Rubén Ashraf MD [address] [place] [address] [place] [address] documented as of this encounter Visit Diagnoses Not on filedocumented in this encounter Care Teams Continuous Process Tanner Rotary Drum Relationship Specialty Start Date End Date Caitlyn Bowie MD [address] [place], [place] PCP - General Internal Medicine 09/24/24 documented as of this encounter
--- OUTSIDE RECORDS SUMMARY | 2025-03-12 16:27 | XMS_ITS | Encounter Summary ---
Author Organization [facility] Address [address] [place] [address] Care Team Providers Care Patient Relations Director Name Role Phone Caitlyn Bowie MD Primary Care Provider +1- [phone] Encounter Details Date Type Department Care Team (Late st Contact Info) Description 08/16/2012 Abstract [facility] Health Information Management [address] [place] [address] [place], Primary Care [address] [place] [address] Social History Tobacco Use Types Packs/Day Years [...] 4:00 PM EDT Telemedicine Cancer Center at [address] [place], [place] [address] Ronald Mills MD 240 [facility] Max [address] [place] [address] documented as of this encounter Visit Diagnoses Not on filedocumented in this encounter Additional Health Concerns Infection Onset Date Last Indicated Resolved Time COVID-19 03/05/2022 03/05/2022 03/15/2022 7:18 PM EDT documented as of this encounter Care Teams Patient Relations Director Relationship Specialty Start Date End Date Caitlyn Bowie MD 3400 [facility] 1 [place] [address] PCP - General Internal Medicine 05/06/21 Henry Kelly MD Pulmonary Department [address] [place] [address], [address] [place] [address] Physician Pulmonary Disease 09/06/17 06/22/20 documented as of this encounter
--- OUTSIDE RECORDS SUMMARY | 2025-03-12 16:27 | XMS_ITS | Encounter Summary ---
Author Organization [facility] and [facility] Address 20 [place] [address] Care Team Providers Care Crowning Hammer Operator Name Role Phone Caitlyn Bowie MD Primary Care Provider +1- [phone] Encounter Details Date Type Department Care Team (Late st Contact Info) Description 08/29/2019 Scanned Document [facility] at [address] [address] External, Provider Social History Tobacco Use Types [...] [facility] 240 [facility] Building [address] [place], [place] [phone] Ronald Mills MD [address] [place] [address] [address] [place] [address] documented as of this encounter [...] documented as of this encounter Care Teams Crowning Hammer Operator Relationship Specialty Start Date End Date Caitlyn Bowie MD [address] [facility] 1 [place] [address] PCP - General Internal Medicine 05/06/21 Henry Kelly MD Pulmonary Department 175 [facility], [address] [place] [address] Physician Pulmonary Disease 09/06/17 06/22/20 documented as of this encounter
--- OUTSIDE RECORDS SUMMARY | 2025-03-12 16:27 | XMS_ITS | Encounter Summary ---
Author Organization [facility] and [facility] Address [address] [place] [address] Care Team Providers Care Nurses' Association Counselor Name Role Phone Caitlyn Bowie MD Primary Care Provider +1- [phone] Encounter Details Date Type Department Care Team (Late st Contact Info) Description 07/01/2019 Scanned Document Onco-Oncology Program at [address] [place] [address] Norma Renee MD [address] [place] [address] 2 [place] [address] Social History Tobacco Use Types Packs/Day Years [...] PM EDT Telemedicine Cancer Center at [address] [place], [place] [address] Ronald Mills MD 240 [facility] A1 [place] [address] documented as of this encounter Visit Diagnoses Not on filedocumented in this encounter Additional Health Concerns Infection Onset Date Last Indicated Resolved Time COVID-19 03/05/2022 03/05/2022 03/15/2022 7:18 PM EDT Assessment Noted Time PHQ-9 Depression Total Score: 2 11/07/19 19 2:06 PM EDT documented as of this encounter Care Teams Nurses' Association Counselor Relationship Specialty Start Date End Date Caitlyn Bowie MD 3400 [facility] 1 [place] [address] PCP - General Internal Medicine 05/06/21 Henry Kelly MD Pulmonary Department 175 [facility], [address] [place] [address] Physician Pulmonary Disease 09/06/17 06/22/20 documented as of this encounter
--- OUTSIDE RECORDS SUMMARY | 2025-03-12 16:27 | XMS_ITS | Encounter Summary ---
Author Organization [facility] and [facility] Address [address] [place] [address] Care Team Providers Care Hog Stomach Preparer Name Role Phone Caitlyn Bowie MD Primary Care Provider +1- [phone] Encounter Details Date Type Department Care Team (Late st Contact Info) Description 01/22/2020 Scanned Document [facility] 800 [place] [address] Kerwin Menjivar MD 260 [facility] 3 [place] [address] Social History Tobacco Use Types [...] PM EDT Telemedicine Cancer Center at [address] [place] [address] Ronald Mills MD 240 [facility] [address] [place] [address] documented as of this encounter Visit Diagnoses Not on filedocumented in this encounter Additional Health Concerns Infection Onset Date Last Indicated Resolved Time COVID-19 03/05/2022 03/05/2022 03/15/2022 7:18 PM EDT Assessment Noted Time PHQ-9 Depression Total Score: 2 11/07/19 19 2:06 PM EDT documented as of this encounter Care Teams Hog Stomach Preparer Relationship Specialty Start Date End Date Caitlyn Bowie MD [address] [address] PCP - General Internal Medicine 05/06/21 Henry Kelly MD Pulmonary Department [address] [place] [address], [address] [place] [address] Physician Pulmonary Disease 09/06/17 06/22/20 documented as of this encounter
--- OUTSIDE RECORDS SUMMARY | 2025-03-12 16:27 | XMS_ITS | Encounter Summary ---
Author Organization [facility] Address [address] [place] [address] Care Team Providers Care Unstacker Name Role Phone Caitlyn Bowie MD Primary Care Provider +1- [phone] Encounter Details Date Type Department Care Team (Late st Contact Info) Description 09/17/2020 Scanned Document [facility] Health Information Management [address] [place] [address] External, Provider Social History Tobacco Use Types [...] Telemedicine [facility] at [facility] 240 [facility] Building [address] [place], [place] [address] Ronald Mills MD [address] [place] [address] [address] [place] [address] documented as of this encounter [...] documented as of this encounter Care Teams Unstacker Relationship Specialty Start Date End Date Caitlyn Bowie MD [address] [address] PCP - General Internal Medicine 05/06/21 documented as of this encounter
--- OUTSIDE RECORDS SUMMARY | 2025-03-12 16:27 | XMS_ITS | Encounter Summary ---
Author Organization [facility] Address [address] [place] [address] Care Team Providers Care Rewind Operator Name Role Phone Caitlyn Bowie MD Primary Care Provider +1- [phone] Encounter Details Date Type Department Care Team (Late st Contact Info) Description 12/16/2016 Scanned Document [facility] Health Information Management [address] [place] [address] External, Provider Social History Tobacco Use Types [...] [facility] 240 [facility] Building [address] [place], [place] [address] Ronald Mills MD 240 [facility] Max [address] [place] [address] documented as of this encounter [...] documented as of this encounter Care Teams Rewind Operator Relationship Specialty Start Date End Date Caitlyn Bowie MD 3400 [facility] 1 [place] [address] PCP - General Internal Medicine 05/06/21 Henry Kelly MD Pulmonary Department 175 [facility], [address] [place] [address] Physician Pulmonary Disease 09/06/17 06/22/20 documented as of this encounter
--- OUTSIDE RECORDS SUMMARY | 2025-03-12 16:27 | XMS_ITS | Encounter Summary ---
Author Organization [facility] and [facility] Address [address] [place] [address] Care Team Providers Care Well Blower Name Role Phone Caitlyn Bowie MD Primary Care Provider +1- [phone] Encounter Details Date Type Department Care Team (Late st Contact Info) Description 01/28/2013 Scanned Document Thoracic Oncology Program at [address] [address] Solo Henry MD [address] [place] [address] Social History Tobacco Use Types Packs/Day [...] [facility] 240 [facility] Building [address] [place], [place] [address] Ronald Mills MD 240 [facility] [address] [place] [address] documented as of this encounter Visit Diagnoses Not on filedocumented in this encounter Additional Health Concerns Infection Onset Date Last Indicated Resolved Time COVID-19 03/05/2022 03/05/2022 03/15/2022 7:18 PM EDT documented as of this encounter Care Teams Well Blower Relationship Specialty Start Date End Date Caitlyn Bowie MD 3400 [facility] Max 1 [place] [address] PCP - General Internal Medicine 05/06/21 Henry Kelly MD Pulmonary Department 175 [facility], [address] [place] [address] Physician Pulmonary Disease 09/06/17 06/22/20 documented as of this encounter
--- OUTSIDE RECORDS SUMMARY | 2025-03-12 16:27 | XMS_ITS | Encounter Summary ---
Author Organization [facility] Address 20 [place] [address] Care Team Providers Care Interactive Marketing Strategist Name Role Phone Caitlyn Bowie MD Primary Care Provider +1- [phone] Encounter Details Date Type Department Care Team (Late st Contact Info) Description 01/28/2013 Scanned Document Thoracic Oncology Program at [address] [address] Solo Henry MD [address] [place] [address] Social History Tobacco Use Types Packs/Day [...] Center at [facility] 240 [facility] Building [address] [place], [place] [address] Ronald Mills MD 240 [facility] Max [address] [place] [address] documented as of this encounter Visit Diagnoses Not on filedocumented in this encounter Additional Health Concerns Infection Onset Date Last Indicated Resolved Time COVID-19 03/05/2022 03/05/2022 03/15/2022 7:18 PM EDT documented as of this encounter Care Teams Interactive Marketing Strategist Relationship Specialty Start Date End Date Caitlyn Bwoie MD 3400 [facility] Max 1 [place] [address] PCP - General Internal Medicine 05/06/21 Henry Kelly MD Pulmonary Department 175 [facility], [address] [place] [address] Physician Pulmonary Disease 09/06/17 06/22/20 documented as of this encounter
--- OUTSIDE RECORDS SUMMARY | 2025-03-12 16:27 | XMS_ITS | Encounter Summary ---
Author Organization [facility] Address [address] [place] [address] Care Team Providers Care Trout Farmer Name Role Phone Caitlyn Bowie MD Primary Care Provider +1- [phone] Encounter Details Date Type Department Care Team (Late st Contact Info) Description 07/12/2019 Scanned Document Onco-Oncology Program at [address] [place] [address] Norma Renee MD [address] [place] [address] 2 [place] [address] Social History Tobacco Use Types [...] PM EDT Telemedicine Cancer Center at [address] [place], [place] [phone] Ronald Mills MD 240 [facility] A1 [place] [address] documented as of this encounter Visit Diagnoses Not on filedocumented in this encounter Additional Health Concerns Infection Onset Date Last Indicated Resolved Time COVID-19 03/05/2022 03/05/2022 03/15/2022 7:18 PM EDT Assessment Noted Time PHQ-9 Depression Total Score: 2 11/07/19 19 2:06 PM EDT documented as of this encounter Care Teams Trout Farmer Relationship Specialty Start Date End Date Caitlyn Bowie MD 3400 [facility] 1 [place] [address] PCP - General Internal Medicine 05/06/21 Henry eKlly MD Pulmonary Department 175 [facility], [address] [place] [address] Physician Pulmonary Disease 09/06/17 06/22/20 documented as of this encounter
--- OUTSIDE RECORDS SUMMARY | 2025-03-12 16:27 | XMS_ITS | Encounter Summary ---
Author Organization [facility] and [facility] Address 20 [place] [address] Care Team Providers Care Showroom Consultant Name Role Phone Caitlyn Bowie MD Primary Care Provider +1- [phone] Encounter Details Date Type Department Care Team (Late st Contact Info) Description 11/26/2019 Scanned Document Cancer Center at [address] [address] External, Provider Social History Tobacco Use Types [...] [facility] 240 [facility] Building [address] [place], [place] [address] Ronald Mills MD [address] [place] [address] [address]1 [place] [address] documented as of this encounter [...] documented as of this encounter Care Teams Showroom Consultant Relationship Specialty Start Date End Date Caitlyn Bowie MD 3400 [facility] 1 [place] [address] PCP - General Internal Medicine 05/06/21 Henry Kelly MD Pulmonary Department 175 [facility], [address] [place] [address] Physician Pulmonary Disease 09/06/17 06/22/20 documented as of this encounter
--- OUTSIDE RECORDS SUMMARY | 2025-03-12 16:27 | XMS_ITS | Encounter Summary ---
Author Organization [facility] and [facility] Address [address] [place] [address] Care Team Providers Care Credit Card Associate Name Role Phone Caitlyn Bowie MD Primary Care Provider +1- [phone] Encounter Details Date Type Department Care Team (Late st Contact Info) Description 02/02/2017 Scanned Document [facility] Health Information Management [address] [place] [address] External, Provider Social History Tobacco Use Types [...] [place] [facility] 240 [facility] Building [address] [place], [place] [address] Ronald Mills MD 240 [facility] A1 [place] [address] documented as of this encounter Visit Diagnoses Not on filedocumented in this encounter Additional Health Concerns Infection Onset Date Last Indicated Resolved Time COVID-19 03/05/2022 03/05/2022 03/15/2022 7:18 PM EDT documented as of this encounter Care Teams Credit Card Associate Relationship Specialty Start Date End Date Caitlyn Bowie MD 3400 [facility] 1 [place] [address] PCP - General Internal Medicine 05/06/21 Henry Kelly MD Pulmonary Department 175 [facility], [address] [place] [address] Physician Pulmonary Disease 09/06/17 06/22/20 documented as of this encounter
--- OUTSIDE RECORDS SUMMARY | 2025-03-12 16:27 | XMS_ITS | Encounter Summary ---
Author Organization [facility] Address [address] [place] [address] Care Team Providers Care Plant Tender Name Role Phone Caitlyn Bowie MD Primary Care Provider +1- [phone] Encounter Details Date Type Department Care Team (Late st Contact Info) Description 12/16/2016 Scanned Document [facility] Health Information Management [address] [place] [address] External, Provider Social History Tobacco Use Types [...] [facility] Building [address] [place], [place] [address] Ronald Mills MD 240 [facility] Max [address]1 [place] [address] documented as of this encounter [...] as of this encounter Care Teams Plant Tender Relationship Specialty Start Date End Date Caitlyn Bowie MD 3400 [facility] 1 [place] [address] PCP - General Internal Medicine 05/06/21 Henry Kelly MD Pulmonary Department 175 [facility], [address] [place] [address] Physician Pulmonary Disease 09/06/17 06/22/20 documented as of this encounter
--- OUTSIDE RECORDS SUMMARY | 2025-03-12 16:27 | XMS_ITS | Encounter Summary ---
Author Organization [facility] Address [address] [place] [phone] Care Team Providers Care Market Analysis Director Name Role Phone Caitlyn Bowie MD Primary Care Provider +1- [phone] Encounter Details Date Type Department Care Team (Late st Contact Info) Description 09/16/2020 Scanned Document [facility] Health Information Management [address] [place] [id number] External, Provider Social History Tobacco Use Types [...] [facility] [address] [facility] [address] [place], [place] [id number] Ronald Mills MD [address] [place] [address] [address] [place] [phone] documented as of this encounter Procedures Procedure [...] as of this encounter Care Teams Market Analysis Director Relationship Specialty Start Date End Date Caitlyn Bowie MD [address] [address] PCP - General Internal Medicine 05/06/21 documented as of this encounter
--- OUTSIDE RECORDS SUMMARY | 2025-03-12 16:27 | XMS_ITS | Encounter Summary ---
Author Organization [facility] Address [address] [place] [address] Phone Care Team Providers Care Is Support Analyst Name Role Phone Caitlyn Bowie MD Primary Care Provider +1- [phone] Encounter Details Date Type Department Care Team (Late Contact Info) Description 12/10/2024 Documentation Only [facility] [address] [place] [address] Marina Abdi [address] [place] [address] Social History Tobacco Use Types [...] [facility] [address] [place] [address] Rubén Ashraf MD [address] [place] [address] [place] [address] documented as of this encounter Visit Diagnoses Not on filedocumented in this encounter Care Teams Is Support Analyst Relationship Specialty Start Date End Date Caitlyn Bowie MD [address] [place], [place] PCP - General Internal Medicine 09/24/24 documented as of this encounter
--- OUTSIDE RECORDS SUMMARY | 2025-03-12 16:27 | XMS_ITS | Encounter Summary ---
Author Organization [facility] Address [address] [place] [address] Care Team Providers Care Marketing Project Specialist Name Role Phone Caitlyn Bowie MD Primary Care Provider +1- [phone] Encounter Details Date Type Department Care Team (Late st Contact Info) Description 12/03/2019 Scanned Document [facility] Health Information Management [address] [place] [address] External, Provider Social History Tobacco Use Types [...] [facility] [address] [facility] Building [address] [place] [address] Ronald Mills MD [address] [place] [address] [address] [place] [address] documented as of this encounter Visit Diagnoses Not on filedocumented in this encounter Additional Health Concerns Infection Onset Date Last Indicated Resolved Time COVID-19 03/05/2022 03/05/2022 03/15/2022 7:18 PM EDT Assessment Noted Time PHQ-9 Depression Total Score: 2 11/07/19 19 2:06 PM EDT documented as of this encounter Care Teams Marketing Project Specialist Relationship Specialty Start Date End Date Caitlyn Bowie MD [address] [facility] 1 [place] [address] PCP - General Internal Medicine 05/06/21 Henry Kelly MD Pulmonary Department [address] [facility] [place] [address] Physician Pulmonary Disease 09/06/17 06/22/20 documented as of this encounter
--- OUTSIDE RECORDS SUMMARY | 2025-03-12 16:27 | XMS_ITS | Patient Health Record ---
Author Organization [facility] Address [address] [place] [address] Care Team Providers Care Bowling Ball Grader And Marker Name Role Phone Shruti Bowieberly Primary Care Provider Cristian Fountain Unavailable [phone] Allergies Allergen (clinical drug ingredient) Drug/Non Drug [...] Status W/U Status Risk Notes Problem Diverticulitis (590529803) Diverticulitis (K57.92) Active confirmed Problem Irritable bowel syndrome characterized by constipation (941367749) Irritable bowel syndrome with constipation (K58.9) Active confirmed Problem Gastroesophageal reflux disease (407301385) GERD (gastroesophageal reflux disease) (K21.9) Active confirmed Plan Of Treatment No Information Insurance Providers Payer Name Payer Address Payer Phone Subscriber Number Group Number Insured Name Patient Relationship to Insured Coverage Start Date Coverage End Date MEDICARE OF [place] [address] [place] [address] [id number] CINDA WATSON Self - patient is the insured [employer] ATT[employer] CLAIMS [address] [place] [address] [id number] CINDA WATSON Self - patient is the insured Medical (General) History Medical History History ICD Code MS-04/2021-sees Dr. 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 Hogan at [facility] GERD-has had EGD's with Dr. Gomes Pneumomias Hypothyroidism Surgical History Surgery Date(Month/Year) Tonsils and adenoids [facility] Lung cancer-Left lower lobectomy at [facility], XRT, Chemo 2008
--- OUTSIDE RECORDS SUMMARY | 2025-03-12 16:28 | XMS_ITS | Encounter Summary ---
Author Organization [facility] Address [address] [place] [phone] Care Team Providers Care Lime Kiln And Recausticizing Operator Name Role Phone Caitlyn Bowie MD Primary Care Provider +1- [phone] Encounter Details Date Type Department Care Team (Late st Contact Info) Description 04/22/2021 Scanned Document INTERFACE DEFAULT [address] [place] [address] System, Provider Not In Social History Tobacco [...] [facility] Building [address] [place], [place] [phone] Ronald Mills MD [address] [place] [address] [address] [place] [address] documented as of this encounter [...] documented as of this encounter Care Teams Lime Kiln And Recausticizing Operator Relationship Specialty Start Date End Date Caitlyn Bowie MD [facility] [address] [address] PCP - General Internal Medicine 05/06/21 documented as of this encounter
--- OUTSIDE RECORDS SUMMARY | 2025-03-12 16:28 | XMS_ITS | Clinical Summary ---
Author Organization [address] [facility] Address [address] [place] [address] Phone Care Team Providers Care Dining Services Manager Name Role Phone Caitlyn Bowie MD Primary Care Provider [phone] Allergies Active Allergy Reactions Criticality Noted Date [...] days. 20 tablet 5 03/05/20 25 Active Problems Problem Noted Date Diagnosed Date [...] 20 mg as needed by her previous transformer stock clerk which she has taken sporadically. I have asked her to take this daily to see if this improves her symptoms and she has a follow-up appointment with Dr. Shah on September 16 which she will keep. We also had a long conversation regarding the fact that she is seeing 3 different transformer stock clerk for the same problems. We informed her [...] continues to see Dr. Avalos or her transformer stock clerk at [facility]. She verbalized understanding of this and [...] right lower leg 03/06/2019 Antiphospholipid antibody syndrome ([facility] V24) 12/24/2018 Adrenal insufficiency ([facility] V24) 08/23/2018 Allergic rhinitis 08/23/2018 Hyperparathyroidism ([facility] V24) 08/23/2018 MRSA infection 08/23/2018 Overview (05/16/2024): 06/2009, s/p thoracotomy infection Osteoarthritis 08/23/2018 Radiation-induced pulmonary fibrosis ([facility] V2 4) 11/13/2017 Bronchiectasis ([facility] V24, [facility] V28) 2017 Leg edema 08/08/2017 Restrictive lung disease 08/08/2017 Chronic obstructive pulmonar y disease ([facility] V24, [facility] V28) 04/13/2017 Fibromyalgia 04/13/2017 Congestive heart failure ([facility] V24, [facility] V 28) 04/04/2017 Heterozygous factor V Leiden mutation ([facility] V 24) 04/04/2017 Obstructive sleep apnea syndrome 04/04/2017 Overview (05/16/2024): CPAP Pleural effusion 04/04/2017 Pulmonary hypertension ([facility] V24, [facility] V28 ) 04/04/2017 Multiple pulmonary nodules 03/17/2017 [...] [address] [place] [address] Tim Gomes MD 02/23/2025 11:40 AM EDT - 02/23/2025 4:22 PM EDT Emergency [facility] Emergency [address] [place] [address] Celia Snider DO Diverticulitis (Primary Dx) Discharge Disposition: Home or Self Care 02/21/2025 4:30 PM EDT Office Visit [facility] [address] [facility] [address] [place] [address] Shirley Chaidez PA Optic neuritis (Primary Dx) 01/19/2025 7:49 PM EDT - 01/19/2025 9:08 PM EDT Emergency [facility] Emergency [address] [place] [phone] Discharge Disposition: Home or Self Care 12/23/2024 9:00 AM EDT Office Visit Vascular Surgery [facility] [address] [place] [address] Jerry Li MD Complex regional pain syndrome type 1 of both lower extremities (Primary Dx); Leg swelling 12/10/2024 2:43 PM EDT - 12/10/2024 4:57 PM EDT Emergency [facility] Emergency [address] [place] [phone] Head injury, initial encounter (Primary Dx) Discharge Disposition: Home or Self Care 12/10/2024 1:30 PM EDT Office Visit [facility] 175 [facility] [address] [place] [phone] Shirley Chaidez PA White matter lesion of [...] PROCEDURE: HISTORICAL TONSILLECTOMY OTHER SURGICAL HISTORY PROCEDURE: ID RMVL LUNG XCP TOT PNEUMONECTOMY SLEEVE LOBECTOMY; [...] pathology report UPPER GASTROINTESTINAL ENDOSCOPY 05/03/2015 PROCEDURE: ID UPPER GI ENDOSCOPY PERFORMED MITRAL CLIP PROCEDURE [...] dori pect Heterozygous factor V Leiden mutation ([facility] V24) 04/04/2017 DX:Heterozygous factor V Lei den [...] syndrome 02/18/2013 DX:Postc oncussion syndrome Pulmonary hypertension ([facility] V24, [facility] V28) 04/04/2017 DX:Pulmonary hypertension (H CC) Restrictive lung disease 08/08/2017 DX:Rest rictive lung disease 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 DX:Zinc deficien cy Obstructive sleep apnea syndrome 04/04/2017 DX:Obstructive sleep apnea syndrome; COMMENT: CPAP Radiation-induced pulmonary fibrosis ([facility] V24) 11/13/2017 DX:Radiation-induced pulmona ry fibrosis (HCC) Adrenal insufficiency ([facility] V24) 08/23/2018 DX:Adrenal insufficiency (HCC) Hyperparathyroidism ([facility] V24) 08/23/2018 DX:Hyperparathyroidism (HCC) Osteoporosis 11/17/2016 DX:Osteoporosis [...] Mx LLL resection, Chemo, RT, Cisplatin, Vinorelbine [id number] Antiphospholipid antibody sy ndrome ([facility] V24) 12/24/2018 DX:Antiphospholipid antibody syndrome (HCC) 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 No significant change. Telerad EMELIA ([id number]) -------- FINAL REPORT -------- Dictated By: Fawn Levin Dictated Date: 02/23/2025 14:57 ET Assigned Physician: Fwan Levin Reviewed and Electronically Signed By: Fawn Levin Signed Date: 02/23/2025 15:01 ET Workstation ID: [id number] Transcribed By: Self Edit Transcribed Date: 02/23/2025 14:57 ET Narrative 02/23/2025 3:01 PM EDT History: Headache. Comparison: 12/10/24 Technique: Contiguous axial images were obtained at 2.5 mm intervals through the posterior fossa and at 5 mm intervals through the remainder of the brain without intravenous contrast. DLP: 808.85 mGy/cm GE ONL [employer] VCT Iterative reconstruction technique Findings: Moderate generalized [...] without intravenous contrast. DLP: 808.85 mGy/cm GE ONL [employer] VCT Iterative reconstruction technique Findings: Moderate generalized [...] intracranial mass effect. No significant change. Telerad PA ([id number]) -------- FINAL REPORT -------- Dictated By: Fawn Levin Dictated Date: 02/23/2025 14:57 ET Assigned Physician: Fawn Levin Reviewed and Electronically Signed By: Fawn Levin Signed Date: 02/23/2025 15:01 ET Workstation ID: [id number] Transcribed By: Self Edit Transcribed Date: 02/23/2025 [...] clinically appropriate, to exclude this possibility. Telerad PA ([id number]) -------- FINAL REPORT -------- Dictated By: Fawn Levin Dictated Date: 02/23/2025 15:01 ET Assigned Physician: Fawn Levin Reviewed and Electronically Signed By: Fawn Levin Signed Date: 02/23/2025 15:05 ET Workstation ID: [id number] Transcribed By: Self Edit Transcribed Date: 02/23/2025 15:01 ET Narrative 02/23/2025 3:05 PM EDT History: Left lower quadrant abdominal pain. Comparison: 08/23/23 Technique: Helical volumetric imaging of the abdomen and pelvis was performed without intravenous or oral contrast. DLP: 480.07 mGy/cm [employer] VCT Iterative reconstruction technique Findings: Chronic pleural-parenchymal [...] intravenous or oral contrast. DLP: 480.07 mGy/cm [employer] VCT Iterative reconstruction technique Findings: Chronic pleural-parenchymal [...] appropriate, to exclude this possibility. Telekarla KAPOOR ([id number]) -------- FINAL REPORT -------- Dictated By: Fawn Levin Dictated Date: 02/23/2025 15:01 ET Assigned Physician: Fawn Levin Reviewed and Electronically Signed By: Fawn Levin Signed Date: 02/23/2025 15:05 ET Workstation ID: [id number] Transcribed By: Self Edit Transcribed Date: 02/23/2025 15:01 ET us Afsaneh KAPOOR IMG CT PROCEDURES Final Resu lt * Lactate, with reflex (02/23/2025 2:25 PM EDT) LACTIC ACID 1.1 0.4 - 2.0 mmol/L LAB CHEMISTRY METHOD 02/23/2025 3:25 PM EDT [facility] Blood Venous blood specimen / Unknown Venipuncture / Unknown 02/23/2025 2:25 PM EDT 02/23/2025 2:35 PM EDT us Afsaneh KAPOOR LAB BLOOD ORDERABLES Final R esult [facility] [address] [place] [address], * Blood Culture, Peripheral Draw #2 (02/23/2025 2:25 PM EDT) Only the most recent of2 resultswithin the time period is included. Culture, Blood No growth at 5 days 02/28/2025 3:01 PM EDT [facility] Blood Venous blood specimen / Unknown Venipuncture / Unknown 02/23/2025 2:25 PM EDT 02/23/2025 2:35 PM EDT Afsaneh KAPOOR LAB MICROBIOLOGY - GENERAL O RDERABLES Final Result [facility] [address] [place] [address], [place] [phone] * XR Chest 1 View (02/23/2025 2:15 PM EDT) Anatomical Region Laterality Modality Body Radiographic Monserrat ging 02/23/2025 2:33 PM EDT Impressions 02/23/2025 2:37 PM EDT Impression: Stable radiographic appearance of the chest, including volume loss and chronic pleural-parenchymal opacity in the left hemithorax consistent with previously treated lung carcinoma. No acute process identified. Telekarla KAPOOR ([id number]) -------- FINAL REPORT -------- Dictated By: Fawn Levin Dictated Date: 02/23/2025 14:33 ET Assigned Physician: Fawn Levin Reviewed and Electronically Signed By: Fawn Levin Signed Date: 02/23/2025 14:37 ET Workstation ID: [id number] Transcribed By: Self Edit Transcribed Date: 02/23/2025 14:33 ET Narrative 02/23/2025 2:37 PM EDT History: Dyspnea. Personal history of lung carcinoma. Comparison: 07/30/23, thoracic CT 09/09/24 [place], [place] Findings: Portable AP upright chest at [...] lung carcinoma. Comparison: 07/30/23, thoracic CT 09/09/24 [place], [place] Findings: Portable AP upright chest at [...] treated lung carcinoma. No acute process identified. Telekarla KAPOOR ([id number]) -------- FINAL REPORT -------- Dictated By: Fawn Levin Dictated Date: 02/23/2025 14:33 ET Assigned Physician: Fawn Levin Reviewed and Electronically Signed By: Fawn Levin Signed Date: 02/23/2025 14:37 ET Workstation ID: [id number] Transcribed By: Self Edit Transcribed Date: 02/23/2025 14:33 ET us Afsaneh KAPOOR IMG XR PROCEDURES Final Resu lt * Urinalysis with reflex microscopic and culture (02/23/2025 2:04 PM EDT) Specific Byers Urine 1.006 1.003 - 1.030 LAB URINALYSIS - AUTOMATED METHOD 02/23/2025 2:17 PM EDT [facility] pH, Urine 7.5 5.0 - 8.0 pH LAB URINALYSIS - AUTOMATED METHOD 02/23/2025 2:17 PM T [facility] Leukocytes, Urine Negative Negative LAB URINALYSIS - AUTOMATED METHOD 02/23/2025 2:17 PM EDT [facility] Nitrite, Urine Negative Negative LAB URINALYSIS - AUTOMATED METHOD 02/23/2025 2:17 PM [facility] Protein, Urine Negative <=Trace mg/dL LAB URINALYSIS - AUTOMATED METHOD 02/23/2025 2:17 PM EDT [facility] Glucose, Urine Negative Negative mg/dL LAB URINALYSIS - AUTOMATED METHOD 02/23/2025 2:17 PM EDT [facility] Ketones, Urine Negative Negative mg/dL LAB URINALYSIS - AUTOMATED METHOD 02/23/2025 2:17 PM EDT [facility] Urobilinogen, Urine 0.2 0.2 - 1.0 mg/dL LAB URINALYSIS - AUTOMATED METHOD 02/23/2025 2:17 PM EDT [facility] Bilirubin, Urine Negative Negative LAB URINALYSIS - AUTOMATED METHOD 02/23/2025 2:17 PM EDT [facility] Blood, Urine Negative Negative LAB URINALYSIS - AUTOMATED METHOD 02/23/2025 2:17 PM EDT [facility] Urine Urine specimen obtained by clean catch procedure / Unknown Non-blood Collection / Unknown 02/23/2025 2:04 PM EDT 02/23/2025 2:05 PM EDT Afsaneh KAPOOR LAB URINE ORDERABLES Final R esult Performing Organization Address City/[facility]/ZIP Co de Phone Number [facility] [address] [place] [address], [place] [phone] * Martinez urine culture tube (02/23/2025 2:04 PM EDT) Extra Tube Hold for add-ons. 02/23/2025 4:01 PM EDT [facility] Comment:Auto resulted. Urine Urine specimen obtained by clean catch procedure / Unknown Non-blood Collection / Unknown 02/23/2025 2:04 PM EDT 02/23/2025 2:05 PM EDT Afsaneh KAPOOR LAB URINE ORDERABLES Final R esult [facility] [address] [place] [address], [place] [phone] * Troponin I high sensitivity (02/23/2025 1:15 PM EDT) [facility] High Sensitivity Troponin I 25 <=54 ng/L LAB CHEMISTRY METHOD 02/23/2025 2:15 PM EDT [facility] Blood Venous blood specimen / Unknown Venipuncture / Unknown 02/23/2025 1:15 PM EDT 02/23/2025 1:39 PM EDT [facility] - 02/23/2025 2:15 PM EDT High levels of biotin in samples may falsely decrease hsTroponin values. Use caution when interpreting hsTroponin results in patients taking biotin who exhibit renal impairment (eGFR <60) or in patients taking more than 20 mg/day of biotin. Afsaneh KAPOOR LAB BLOOD ORDERABLES Final R esult [facility] [address] [place] [address], [place] [phone] * (ABNORMAL) CBC auto differential (02/23/2025 1:15 PM EDT) [facility] WBC 17.4(H) 4.8 - 10.8 K/mcL LAB HEMETOLOGY METHOD 02/23/2025 1:47 PM EDT [facility] RBC 3.60(L) 3.80 - 4.80 M/mcL LAB HEMETOLOGY METHOD 02/23/2025 1:47 PM EDT [facility] Hemoglobin 11.6 11.5 - 16.0 g/dL LAB HEMETOLOGY METHOD 02/23/2025 1:47 PM EDT [facility] Hematocrit 36.3 35.0 - 47.0 % LAB HEMETOLOGY METHOD 02/23/2025 1:47 PM EDT [facility] MCV 101.7(H) 79.0 - 98.0 FL LAB HEMETOLOGY METHOD 02/23/2025 1:47 PM EDT [facility] MCH 32.5(H) 27.0 - 32.0 pcg LAB HEMETOLOGY METHOD 02/23/2025 1:[facility] MCHC 32.0 32.0 - 37.0 g/dL LAB HEMETOLOGY METHOD 02/23/2025 1:47 PM EDT [facility] RDW 14.2 11.0 - 15.0 % LAB HEMETOLOGY METHOD 02/23/2025 1:47 PM EDT [facility] Platelets 232 130 - 400 K/mcL LAB HEMETOLOGY METHOD 02/23/2025 1:47 PM [facility] MPV 11.5(H) 7.0 - 11.0 FL LAB HEMETOLOGY METHOD 02/23/2025 1:47 PM [facility] NRBC 0.0 <1.0 % LAB HEMETOLOGY METHOD 02/23/2025 1:47 PM [facility] NRBC Absolute 0.00 <0.10 K/mcL LAB HEMETOLOGY METHOD 02/23/2025 1:47 PM [facility] Neutrophils Relative 87.3 % LAB HEMETOLOGY METHOD 02/23/2025 1:47 PM EDT [facility] Lymphocytes Relative 4.9 % LAB HEMETOLOGY METHOD 02/23/2025 1:47 PM EDT [facility] Monocytes Relative 5.6 % LAB HEMETOLOGY METHOD 02/23/2025 1:47 PM EDT [facility] Eosinophils Relative 0.3 % LAB HEMETOLOGY METHOD 02/23/2025 1:47 PM [facility] Basophils Relative 0.6 % LAB HEMETOLOGY METHOD 02/23/2025 1:47 PM [facility] Immature Granulocytes Relative 1.3 % LAB HEMETOLOGY METHOD 02/23/2025 1:47 PM EDT [facility] Neutrophils Absolute 15.20(H) 1.50 - 7.00 K/mcL LAB HEMETOLOGY METHOD 02/23/2025 1:47 PM EDT [facility] Lymphocytes Absolute 0.85(L) 1.00 - 5.00 K/mcL LAB HEMETOLOGY METHOD 02/23/2025 1:47 PM EDT [facility] Monocytes Absolute 0.98 0.20 - 1.00 K/mcL LAB HEMETOLOGY METHOD 02/23/2025 1:47 PM EDT [facility] Eosinophils Absolute 0.06 0.00 - 0.50 K/mcL LAB HEMETOLOGY METHOD 02/23/2025 1:47 PM EDT [facility] Basophils Absolute 0.10 0.00 - 0.20 K/mcL LAB HEMETOLOGY METHOD 02/23/2025 1:47 PM EDT [facility] Immature Granulocytes Absolute 0.23(H) 0.00 - 0.03 K/mcL LAB HEMETOLOGY METHOD 02/23/2025 1:47 PM EDT [facility] Blood Venous blood specimen / Unknown Venipuncture / Unknown 02/23/2025 1:15 PM EDT 02/23/2025 1:40 PM EDT Afsaneh KAPOOR LAB BLOOD ORDERABLES Final R esult [facility] [address] [place] [address], * (ABNORMAL) Prothrombin time with INR (02/23/2025 1:15 PM EDT) Protime 14.9(H) 10.6 - 13.9 sec LAB COAGULATION METHOD 02/23/2025 1:52 PM EDT [facility] INR 1.2 LAB COAGULATION METHOD 02/23/2025 1:52 PM EDT [facility] Blood Venous blood specimen / Unknown Venipuncture / Unknown 02/23/2025 1:15 PM EDT 02/23/2025 1:40 PM EDT Afsaneh KAPOOR LAB BLOOD ORDERABLES Final R esult Performing Organization Address [facility] Co de Phone Number [facility] [address] [place] [address], [place] [phone] * Type and screen (02/23/2025 1:15 PM EDT) Pathologist [facility] ABO Group A 02/23/2025 2:47 PM EDT [facility] Rh Type Positive 02/23/2025 2:47 PM EDT [facility] Antibody Screen Negative 02/23/2025 2:47 PM EDT [facility] Blood Venous blood specimen / Unknown Venipuncture / Unknown 02/23/2025 1:15 PM EDT 02/23/2025 1:40 PM EDT us Afsaneh KAPOOR LAB BLOOD BANK TEST ORDERABL ES Final Result Performing Organization Address [facility] de Phone Number [facility] [address] [place] [address], [place] [phone] * (ABNORMAL) Comprehensive Metabolic Panel (CMP) (02/23/2025 1:15 PM EDT) Pathologist [facility] Sodium 136 133 - 145 mmol/L LAB CHEMISTRY METHOD 02/23/2025 2:13 PM EDT [facility] Potassium 3.5 3.5 - 5.5 mmol/L LAB CHEMISTRY METHOD 02/23/2025 2:13 PM EDT [facility] Chloride 97 96 - 110 mmol/L LAB CHEMISTRY METHOD 02/23/2025 2:13 PM [facility] CO2 33(H) 21 - 32 mmol/L LAB CHEMISTRY METHOD 02/23/2025 2:13 PM [facility] Anion Gap 6 3 - 11 LAB CHEMISTRY METHOD 02/23/2025 2:13 PM [facility] Glucose 100 70 - 100 mg/dL LAB CHEMISTRY METHOD 02/23/2025 2:13 PM [facility] BUN 23 5 - 25 mg/dL LAB CHEMISTRY METHOD 02/23/2025 2:13 PM [facility] Creatinine 0.83 0.50 - 1.10 mg/dL LAB CHEMISTRY METHOD 02/23/2025 2:13 PM [facility] eGFR 71 >=60 mL/min/1. 73m2 LAB CHEMISTRY METHOD 02/23/2025 2:13 PM [facility] Comment:Calculation based on the Chronic Kidney Disease Epidemiology Collaboration (CKD-EPI) equation refit without adjustment for race. BUN/Creatinine Ratio 27.7 LAB CHEMISTRY METHOD 02/23/2025 2:13 PM [facility] Calcium 10.0 8.5 - 10.5 mg/dL LAB CHEMISTRY METHOD 02/23/2025 2:13 PM [facility] AST (SGOT) 29 10 - 42 unit/L LAB CHEMISTRY METHOD 02/23/2025 2:13 PM [facility] ALT (SGPT) 24 10 - 60 unit/L LAB CHEMISTRY METHOD 02/23/2025 2:13 PM [facility] Alkaline Phosphatase 72 42 - 121 unit/L LAB CHEMISTRY METHOD 02/23/2025 2:13 PM [facility] Total Protein 6.9 6.0 - 8.0 g/dL LAB CHEMISTRY METHOD 02/23/2025 2:13 PM [facility] Albumin 3.5 3.2 - 5.0 g/dL LAB CHEMISTRY METHOD 02/23/2025 2:13 PM EDT [facility] Total Bilirubin 0.5 0.0 - 1.4 mg/dL LAB CHEMISTRY METHOD 02/23/2025 2:13 PM EDT [facility] Blood Venous blood specimen / Unknown Venipuncture / Unknown 02/23/2025 1:15 PM EDT 02/23/2025 1:39 PM EDT Afsaneh KAPOOR LAB BLOOD ORDERABLES Final R esult [facility]) [facility] [address] [place] [address], * 12-Lead ECG (02/23/2025 1:05 PM EDT) Ventricular Rate ECG 79 BPM GEMUSE Atrial Rate 79 BPM GEMUSE P-R Interval 164 ms GEMUSE QRS Duration 138 ms GEMUSE Q-T Interval 422 ms GEMUSE QTc 483 ms GEMUSE P Wave [place] 68 degrees GEMUSE R [place] -59 degrees GEMUSE T [place] 62 degrees GEMUSE ECG Interpretation Normal sinus rhythm Right bundle branch block Left anterior fascicular block Bifascicular block Abnormal ECG When compared with ECG of 23-NOV-2021 13:05, Right bundle branch block is now Present Confirmed by MARC BACH ([id number]) on 02/23/2025 6:21:33 PM GEMUSE 02/23/2025 1:05 PM EDT 02/23/2025 6:21 PM EDT Afsaneh KAPOOR ECG ORDERABLES Final Result GEMUSE from Last 3 Months Insurance MEDICARE [facility] Advance Directives Documents on File Type Date Recorded 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
--- OUTSIDE RECORDS SUMMARY | 2025-03-12 16:28 | XMS_ITS | Encounter Summary ---
Author Organization [facility] Address [address] [place] [phone] Care Team Providers Care Technical Sales Specialist Name Role Phone Caitlyn Bowie MD Primary Care Provider +1- [phone] Encounter Details Date Type Department Care Team (Late st Contact Info) Description 04/11/2021 Scanned Document [facility] Health Information Management [address] [place] [phone] External, Provider Social History Tobacco Use Types [...] [facility] [address] [place], [place] [id number] Ronald Mills MD [address] [place] [address] [address] [place] [address] documented as of this encounter Visit Diagnoses Not on filedocumented in this encounter Additional Health Concerns Infection Onset Date Last Indicated Resolved Time COVID-19 03/05/2022 03/05/2022 03/15/2022 7:18 PM EDT Assessment Noted Time PHQ-9 Depression Total Score: 2 11/07/19 19 2:06 PM EDT documented as of this encounter Care Teams Technical Sales Specialist Relationship Specialty Start Date End Date Caitlyn Bowie MD [address] [phone] PCP - General Internal Medicine 05/06/21 documented as of this encounter
--- OUTSIDE RECORDS SUMMARY | 2025-03-12 16:28 | XMS_ITS | Encounter Summary ---
Author Organization [facility] Address [address] [place] [phone] Care Team Providers Care Cloth Spreader Screen Printing Name Role Phone Caitlyn Bowie MD Primary Care Provider [phone]- [phone] Encounter Details Date Type Department Care Team (Late st Contact Info) Description 04/10/2021 Scanned Document INTERFACE DEFAULT [address] [place] [id number] System, Provider Not In Social History Tobacco [...] [facility] [address] [place] [address] Ronald Mills MD [address] [place] [address] [address] [place] [address] documented as of this encounter [...] as of this encounter Care Teams Cloth Spreader Screen Printing Relationship Specialty Start Date End Date Caitlyn Bowie MD [address] [address] PCP - General Internal Medicine 05/06/21 documented as of this encounter
--- OUTSIDE RECORDS SUMMARY | 2025-03-12 16:28 | XMS_ITS | Encounter Summary ---
Author Organization [facility] and [facility] Address [address] [place] [address] Care Team Providers Care Auto Leasing Manager Name Role Phone Caitlyn Bowie MD Primary Care Provider +1- [phone] Encounter Details Date Type Department Care Team (Late st Contact Info) Description 06/07/2017 Scanned Document [facility] Health Information Management [address] [place] [address] External, Provider Social History Tobacco Use Types [...] [facility] 240 [facility] Building [address] [place], [place] [phone] Ronald Mills MD [address] [place] [address] [address]1 [place] [address] documented as of this encounter [...] Bowie MD 3400 [facility] 1 [place] [address] PCP - General Internal Medicine 05/06/21 Henry Kelly MD Pulmonary Department 175 [facility], [address] [place] [address] Physician Pulmonary Disease 09/06/17 06/22/20 documented as of this encounter
--- OUTSIDE RECORDS SUMMARY | 2025-03-12 16:28 | XMS_ITS | Encounter Summary ---
Author Organization [facility] and [facility] Address [address] [place] [address] Care Team Providers Care Wildlife Conservation Officer Name Role Phone Caitlyn Bowie MD Primary Care Provider +1- [phone] Encounter Details Date Type Department Care Team (Late st Contact Info) Description 03/01/2021 Scanned Document INTERFACE DEFAULT [address] [place] [address] System, Provider Not In Social History Tobacco [...] [facility] 240 [facility] Building [address] [place] [address] Ronald Mills MD [address] [place] [address] [address]1 [place] [address] documented as of this encounter Visit Diagnoses Not on filedocumented in this encounter Additional Health Concerns Infection Onset Date Last Indicated Resolved Time COVID-19 03/05/2022 03/05/2022 03/15/2022 7:18 PM EDT Assessment Noted Time PHQ-9 Depression Total Score: 2 11/07/19 19 2:06 PM EDT documented as of this encounter Care Teams Wildlife Conservation Officer Relationship Specialty Start Date End Date Caitlyn Bowie MD [address] [address] PCP - General Internal Medicine 05/06/21 documented as of this encounter
--- OUTSIDE RECORDS SUMMARY | 2025-03-12 16:28 | XMS_ITS | Encounter Summary ---
Author Organization [facility] and [facility] Address 20 [place] [address] Care Team Providers Care Customer Counter Representative Name Role Phone Caitlyn Bowie MD Primary Care Provider +1- [phone] Encounter Details Date Type Department Care Team (Late st Contact Info) Description 04/26/2017 Scanned Document Cardiovascular Medicine at [address] [place] [address] System, Provider Not In Social History Tobacco [...] at [facility] 240 [facility] Building [address] [place], [place] [phone] Ronald Mills MD 240 [facility] A1 [place] [address] documented as of this encounter [...] Date End Date Caitlyn Bowie MD 3400 [facility] Max 1 [place] [address] PCP - General Internal Medicine 05/06/21 Henry Kelly MD Pulmonary Department 175 [facility], [address] [place] [address] Physician Pulmonary Disease 09/06/17 06/22/20 documented as of this encounter
--- OUTSIDE RECORDS SUMMARY | 2025-03-12 16:28 | XMS_ITS | Encounter Summary ---
Author Organization [facility] and [facility] Address [address] [place] [address] Care Team Providers Care Chief Of Surgery Name Role Phone Caitlyn Bowie MD Primary Care Provider +1- [phone] Encounter Details Date Type Department Care Team (Late st Contact Info) Description 04/13/2021 Scanned Document INTERFACE DEFAULT [address] [place] [address] System, Provider Not In Social History Tobacco [...] [place] 240 [facility] Building [address] [place], [place] [address] Ronald Mills MD [address] [place] [address] [address] [place] [address] documented as of this encounter [...] of this encounter Care Teams Chief Of Surgery Relationship Specialty Start Date End Date Caitlyn Bowie MD [address] [address] PCP - General Internal Medicine 05/06/21 documented as of this encounter
--- OUTSIDE RECORDS SUMMARY | 2025-03-12 16:28 | XMS_ITS | Encounter Summary ---
Author Organization [facility] Address 20 [place] [address] Care Team Providers Care Plastic Roller Name Role Phone Caitlyn Bowie MD Primary Care Provider +1- [phone] Encounter Details Date Type Department Care Team (Late st Contact Info) Description 08/09/2017 Scanned Document Cardiovascular Medicine at [address] [place] [address] System, Provider Not In Social History Tobacco [...] [facility] 240 [facility] Building [address] [place] [address] Ronald Mills MD 240 [facility] Max [address] [place] [address] documented as of this encounter [...] as of this encounter Care Teams Plastic Roller Relationship Specialty Start Date End Date Caitlyn Bowie MD 3400 [facility] Max 1 [place] [address] PCP - General Internal Medicine 05/06/21 Henry Kelly MD Pulmonary Department 175 [facility], [address] [place] [address] Physician Pulmonary Disease 09/06/17 06/22/20 documented as of this encounter
--- OUTSIDE RECORDS SUMMARY | 2025-03-12 16:28 | XMS_ITS | Encounter Summary ---
Author Organization [facility] and [facility] Address [address] [place] [address] Care Team Providers Care Hull Outfit Supervisor Name Role Phone Caitlyn Bowie MD Primary Care Provider +1- [phone] Encounter Details Date Type Department Care Team (Late st Contact Info) Description 03/16/2021 Scanned Document INTERFACE DEFAULT [address] [place] [address] System, Provider Not In Social History Tobacco [...] Center at [facility] 240 [facility] Building [address] [place] [address] Ronald Mills MD [address] [place] [address] [address] [place] [address] documented as of this encounter [...] End Date Caitlyn Bowie MD [address] [address] PCP - General Internal Medicine 05/06/21 documented as of this encounter
--- OUTSIDE RECORDS SUMMARY | 2025-03-12 16:28 | XMS_ITS | Encounter Summary ---
Author Organization [facility] Address [address] [place] [address] Care Team Providers Care Feather Curling Machine Operator Name Role Phone Caitlyn Bowie MD Primary Care Provider +1- [phone] Encounter Details Date Type Department Care Team (Late st Contact Info) Description 11/29/2017 Scanned Document [facility] Health Information Management [address] [place] [address] External, Provider Social History Tobacco Use Types [...] [facility] at [facility] 240 [facility] Building [address] [place], [place] [phone] Ronald Mills MD [address] [place] [address] [address]1 [place] [address] documented as of this encounter [...] as of this encounter Care Teams Feather Curling Machine Operator Relationship Specialty Start Date End Date Caitlyn Bowie MD 3400 [facility] 1 [place] [address] PCP - General Internal Medicine 05/06/21 Henry Kelly MD Pulmonary Department 175 [facility], [address] [place] [address] Physician Pulmonary Disease 09/06/17 06/22/20 documented as of this encounter
--- OUTSIDE RECORDS SUMMARY | 2025-03-12 16:28 | XMS_ITS | Encounter Summary ---
Author Organization [facility] and [facility] Address [address] [place] [address] Care Team Providers Care Refinish Technician Name Role Phone Caitlyn Bowie MD Primary Care Provider +1- [phone] Encounter Details Date Type Department Care Team (Late st Contact Info) Description 06/27/2019 Scanned Document Onco-Oncology Program at [address] [place] [address] Norma Renee MD [address] [place] [address] 2 [place] [address] Social History Tobacco Use Types [...] 4:00 PM EDT Telemedicine Cancer Center at [address] [place], [place] [phone] Ronald Mills MD 240 [facility] A1 [place] [address] documented as of this encounter Visit Diagnoses Not on filedocumented in this encounter Additional Health Concerns Infection Onset Date Last Indicated Resolved Time COVID-19 03/05/2022 03/05/2022 03/15/2022 7:18 PM EDT Assessment Noted Time PHQ-9 Depression Total Score: 2 11/07/19 19 2:06 PM EDT documented as of this encounter Care Teams Refinish Technician Relationship Specialty Start Date End Date Caitlyn Bowie MD 3400 [facility] 1 [place] [address] PCP - General Internal Medicine 05/06/21 Henry Kelly MD Pulmonary Department 175 [facility], [address] [place] [address] Physician Pulmonary Disease 09/06/17 06/22/20 documented as of this encounter
--- OUTSIDE RECORDS SUMMARY | 2025-03-12 16:28 | XMS_ITS | Clinical Summary ---
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 Akathisia 04/15/2013 Pulmonary embolism 03/18/2013 Deep vein thrombosis (DVT) (HC Code) 03/18/2013 Bleeding 03/18/2013 Factor V Leiden (HC Code) 03/18/2013 Dyspnea on exertion KANDY on CPAP Exposed to tobacco smoke by family members ramos paige indoors Bronchiectasis COPD (chronic obstructive pulmonary disease) (HC Code) Mildly restrictive lung disease Resolved Problems Problem Noted Date Diagnosed Date Resolved Date KANDY (obstructive sleep apnea) 11/21/2016 01/22/2018 Carotid stenosis, asymptomatic, right 09/18/2015 06/10/2016 Encounters Date Type Department Care Team Description 01/20/2025 Telephone [facility] at [address] [address] Ronald Mills MD Triage from Last 3 Months Immunizations Immunization Administration Dates Next Due Influenza, quad, adjuvanted, [...] 79 10/31/2024 1:19 PM EDT Temperature 36.8 C (98.2 F) 10/31/2024 1:19 PM EDT Respiratory Rate 20 10/31/2024 1:19 PM EDT [...] PM EDT Telemedicine Cancer Center at [address] [place], [place] [address] Ronald Mills MD [address] [place] [address] Rd [address] [place] [address] Health Maintenance Due Date Last Done Comments HIV screening 1958 Shingles vaccine (Shingrix) (1 of 2 - Shingrix (RZV) 2 Dose Standard Series) 1993 RSV Immunization (1 - 1-dose 75+ series) 2018 Lipid disorder screening 03/18/2021 03/18/2016 Covid-19 vaccine series ( season) 2025 09/03/2020, 08/06/2020 Influenza vaccine 03/10/2025 06/12/2024, , 05/13/2022, Additional history exists Diabetes screening 04/05/2025 04/05/2022, 0 09/28/2021, 12/16/2018, Additional history exists Tetanus adult (Td q 10,TDAP once) 02/27/2026 02/28/2016, 02/17/2016 Breast cancer screening Discontinued 04/25/2013 Osteoporosis screening (bone density) Completed 05/10/2017 Pneumococcal Vaccine (50+ years) Completed 08/31/2021, 03/25/2016, 09/17/2015, Additional history exists Cervical cancer screening Discontinued Colon cancer screening, Colonoscopy Discontinued Meningococcal B Vaccine Aged Out No l [...] [facility] MED[facility]INE [facility] Potassium 4.7 3.3 - 5.3 mmol/L 04/05/2022 1:43 PM EDT [facility] DEPARTMENT [facility] LABORATORY MEDICINE [facility] Chloride 100 98 - 107 mmol/L 04/05/2022 1:43 PM EDT [facility] DEPARTMENT [facility] LABORATORY MEDICINE [facility] CO2 30 20 - 30 mmol/L 04/05/2022 1:43 PM EDT [facility] DE[facility] LABORATORY MEDICINE [facility] Anion Gap 8 7 - 17 04/05/2022 1:43 PM EDT [facility] DEPART[facility] LABORATORY MEDICINE [facility] Glucose 115(H) 70 - 100 mg/dL 04/05/2022 1:43 PM EDT [facility] DEPARTMENT [facility] LABORATORY MEDICINE [facility] BUN 16 8 - 23 mg/dL 04/05/2022 1:43 PM EDT [facility] Creatinine 0.89 0.40 - 1.30 mg/dL 04/05/2022 1:43 PM EDT [facility] DEPARTMENT LABORATORY MEDICINE [facility] Calcium 10.5(H) 8.8 - 10.2 mg/dL 04/05/2022 1:43 PM EDT [facility] DEPARTMENT OF LABORATORY MEDICINE [facility] BUN/Creatinine Ratio 18.0 8.0 - 23.0 03/11 1:43 PM EDT [facility]PART[facility] Total Protein 7.0 6.6 - 8.7 g/dL 04/05/2022 1:43 PM [facility] DEPARTMENT OF LABORATORY MEDICINE [facility] Albumin 4.2 3.6 - 4.9 g/dL 04/05/2022 1:43 PM T [facility] DEPARTMENT OF LABORATORY MEDICINE [facility] Total Bilirubin 0.6 <=1.2 mg/dL 04/05/2022 1:43 PM [facility] DEPARTMENT LABORATORY MEDICINE [facility] Alkaline Phosphatase 58 9 - 122 U/L 04/05/2022 1:43 PM [facility] DEPARTMENT LABORATORY MEDICINE [facility] Alanine Aminotransferase (ALT) 19 10 - 35 U/L 04/05/2022 1:43 PM [facility] DEPARTMENT OF LABORATORY MEDICINE [facility] Comment:Calcium dobesilate c an cause artificially low ALT results at therapeutic concentrations Aspartate Aminotransferase (AST) 26 10 - 35 U/L 04/05/2022 1:43 PM [facility] DEPARTMENT LABORATORY MEDICINE [facility] Globulin 2.8 2.3 - 3.5 g/dL 04/05/2022 1:43 PM [facility] DEPARTMENT LABORATORY MEDICINE [facility] A/G Ratio 1.5 1.0 - 2.2 04/05/2022 1:43 PM EDT [facility] DEPARTMENT OF LABORATORY MEDICINE [facility] AST/ALT Ratio 1.4 See Comment 04/05/2022 1:43 PM EDT [facility]PART[facility] Comment: Adult with mild elevations [...] HOSPITAL DEPARTMENT [facility] Comment:Estimated glomerular filtration rate (eGFR) [...] MD LAB BLOOD ORDERABLES Final Resul t [facility] OF LABORATORY MEDICINE [facility] [address] [place] [address] * Bone Density Result Scan (05/10/2017) Historical Provider IMG SCAN REPORTS Final Resul [...] 130-159: Borderline high risk 160-189: High risk >=190: Very high risk Blood specimen (specimen) Venipuncture / Unknown 03/18/2016 2:55 PM EDT 03/18/2016 3:17 PM EDT Narrative [facility] - 03/18/2016 8:11 PM EDT $18.27 us Sangeeta Garces MD LAB BLOOD ORDERABLES Fin al Result Performing Organization Address City/State/[facility] Co de Phone Number [facility] [address] [place] [address] * MAMMOGRAPHY REPORT (04/25/2013 6:47 AM EDT) 04/25/2013 6:47 AM EDT us Provider Not In System IMG SCAN REPORTS Final Re sult from Last 3 Months or Most Recently Relevant to Health Maintenance Insurance MEDICARE [facility] MEDICARE [facility]IC[facility] MEDICARE MEDICARE [facility] Advance Directives * Full ACLS (Latest Code Status on File) Date Activated Date Inactivated Comments 12/15/2018 7:13 PM 12/16/2018 6:09 PM * Full Interventions Date Activated Date Inactivated Comments 03/18/2016 6:34 PM 03/19/2016 6:[address] Light Repairer Helper Relationship Specialty Start Date End Date Caitlyn Bowie MD [address] [address] PCP - General Internal Medicine 05/06/21
--- OUTSIDE RECORDS SUMMARY | 2025-03-12 16:28 | XMS_ITS | Encounter Summary ---
Author Organization [facility] Address [address] [place] [address] Phone Care Team Providers Care Business Banking Sales Assistant Name Role Phone Caitlyn Bowie MD Primary Care Provider +1- [phone] Encounter Details Date Type Department Care Team (Late Contact Info) Description 12/12/2024 Documentation Only [facility] [address] [place] [address] Marina Abdi [address] [place] [address] Social History Tobacco Use Types Packs/Day Years Used Date Smoking Tobacco: Never Comments Unknown Sex and Gender Information Value Date Recorded Sex Assigned at Not on file Legal Sex Female 2:00 PM EDT Gender Identity Not on file Sexual Orientation Not on file documented as of this encounter Plan of Treatment Upcoming Encounters Date Type Department Care Team (Late st Contact Info) Description 06/12/2025 3:00 PM EST Office Visit [facility] [address] [place] [address] Rubén Ashraf MD [address] [place] [address] [place] [address] documented as of this encounter Visit Diagnoses Not on filedocumented in this encounter Care Teams Business Banking Sales Assistant Relationship Specialty Start Date End Date Caitlyn Bowie MD 3400 [place], [place] PCP - General Internal Medicine 09/24/24 documented as of this encounter
--- OUTSIDE RECORDS SUMMARY | 2025-03-12 16:28 | XMS_ITS | Encounter Summary ---
Author Organization [facility] Address [address] [place] [address] Care Team Providers Care Media Marketing Specialist Name Role Phone Caitlyn Bowie MD Primary Care Provider +1- [phone] Encounter Details Date Type Department Care Team (Late st Contact Info) Description 08/23/2017 Scanned Document [facility] Health Information Management [address] [place] [address] External, Provider Social History Tobacco Use Types [...] [facility] Building [address] [place], [place] [phone] Ronald Mills MD [address] [place] [address] [address] [place] [address] documented as [...] as of this encounter Care Teams Media Marketing Specialist Relationship Specialty Start Date End Date Caitlyn Bowie MD 3400 [facility] 1 [place] [address] PCP - General Internal Medicine 05/06/21 Henry Kelly MD Pulmonary Department 175 [facility], [address] [place] [address] Physician Pulmonary Disease 09/06/17 06/22/20 documented as of this encounter
--- OUTSIDE RECORDS SUMMARY | 2025-03-12 16:28 | XMS_ITS | Encounter Summary ---
Author Organization [facility] Address [address] [place] [address] Care Team Providers Care Education Rep Name Role Phone Caitlyn Bowie MD Primary Care Provider +1- [phone] Encounter Details Date Type Department Care Team (Late st Contact Info) Description 04/21/2021 Scanned Document INTERFACE DEFAULT [address] [place] [address] System, Provider Not In Social History Tobacco [...] at [facility] 240 [facility] Building [address] [place], [place] [phone] Ronald Mills MD [address] [place] [address] [address] [place] [address] documented as [...] as of this encounter Care Teams Education Rep Relationship Specialty Start Date End Date Caitlyn Bowie MD [facility] [address] [address] PCP - General Internal Medicine 05/06/21 documented as of this encounter
--- OUTSIDE RECORDS SUMMARY | 2025-03-12 16:28 | XMS_ITS | Encounter Summary ---
Author Organization [facility] Address [address] [place] [address] Care Team Providers Care Counselor/Art Therapist Name Role Phone Caitlyn Bowie MD Primary Care Provider +1- [phone] Encounter Details Date Type Department Care Team (Late st Contact Info) Description 08/21/2017 Scanned Document [facility] Health Information Management [address] [place] [address] External, Provider Social History Tobacco Use Types [...] [facility] 240 [facility] Building [address] [place], [place] [phone] Ronald Mills MD [address] [place] [address] [address] [place] [address] documented as of this encounter [...] documented as of this encounter Care Teams Counselor/Art Therapist Relationship Specialty Start Date End Date Caitlyn Bowie MD 3400 [facility] 1 [place] [address] PCP - General Internal Medicine 05/06/21 Henry Kelly MD Pulmonary Department 175 [facility], [address] [place] [address] Physician Pulmonary Disease 09/06/17 06/22/20 documented as of this encounter
--- OUTSIDE RECORDS SUMMARY | 2025-03-12 16:28 | XMS_ITS | Encounter Summary ---
Author Organization [facility] Address [address] [place] [address] Care Team Providers Care Switcher Name Role Phone Caitlyn Bowie MD Primary Care Provider +1- [phone] Encounter Details Date Type Department Care Team (Late st Contact Info) Description 03/11/2021 Scanned Document INTERFACE DEFAULT [address] [place] [address] System, Provider Not In Social History Tobacco [...] [facility] Building [address] [place], [place] [phone] Ronald Mills MD [address] [place] [address] [address] [place] [address] documented as of this encounter [...] documented as of this encounter Care Teams Switcher Relationship Specialty Start Date End Date Caitlyn Bowie MD [facility] [address] [address] PCP - General Internal Medicine 05/06/21 documented as of this encounter
--- OUTSIDE RECORDS SUMMARY | 2025-03-12 16:28 | XMS_ITS | Encounter Summary ---
Author Organization [facility] Address [address] [place] [address] Care Team Providers Care Trimming Cutter Name Role Phone Caitlyn Bowie MD Primary Care Provider +1- [phone] Encounter Details Date Type Department Care Team (Late st Contact Info) Description 03/01/2017 Scanned Document Onco-Oncology Program at [address] [place] [address] Norma Renee MD [address] [place] [address] 2 [place] [phone] Social History Tobacco Use Types Packs/Day Years [...] 4:00 PM EDT Telemedicine Cancer Center at [address] [place] [address] Ronald Mills MD 240 [facility] A1 [place] [address] documented as of this encounter Visit Diagnoses Not on filedocumented in this encounter Additional Health Concerns Infection Onset Date Last Indicated Resolved Time COVID-19 03/05/2022 03/05/2022 03/15/2022 7:18 PM EDT documented as of this encounter Care Teams Trimming Cutter Relationship Specialty Start Date End Date Caitlyn Bowie MD 3400 [facility] Max 1 [place] [address] PCP - General Internal Medicine 05/06/21 Henry Kelly MD Pulmonary Department 175 [facility], [address] [place] [address] Physician Pulmonary Disease 09/06/17 06/22/20 documented as of this encounter
--- OUTSIDE RECORDS SUMMARY | 2025-03-12 16:28 | XMS_ITS | Patient Health Record ---
Author Organization [facility] Address [address] [facility] [address] [place] [address] Care Team Providers Care Finishing Area Operator Name Role Phone EVELIN RAMSAY Primary Care Provider Yenny Hou Unavailable [phone] Allergies Allergen (clinical drug ingredient) Drug/Non Drug [...] 11:35:04 PM Interpretation: Performing Lab:[facility] Mcmahon, [address] [facility], [place], Phone - [phone], Director - Arely Notes/Report: Urinalysis Reviewed date:05/03/2024 04:40:26 PM Interpretation: Performing Lab: Notes/Report: NITRITE Neg PH 6.0 PROTEIN Neg S.G 1.010 WBC Neg GLUCOSE Neg KETONES Neg UROBILINOGEN Neg BILIRUBIN Neg BLOOD Neg Urinalysis, Complete-[id number] Reviewed date:05/04/2024 11:35:42 PM Interpretation: Performing Lab:[facility] [place], [address] [facility], Phone - [phone], Director - Arely Notes/Report: Specific [place] 1.009 1.005-1.030 pH 6.5 5.0-7.5 Urine-Color Yellow [...] Bacteria None seen None seen/Few Urine Culture, Routine-[id number] 7 Reviewed date:05/04/2024 11:35:22 PM Interpretation: Performing Lab:[facility] [place], [address] [place] [address], [place], Phone - [phone], Director - Arely Notes/Report: Urine Culture, Routine [...] 25MCG 1 ORAL daily; Durati on: -3 [facility] 06/10/2014 Active ZyrTEC Allergy 10MG [...] 50MG 1 ORAL at bedtime; Duration: -3 [facility] 06/10/2014 Active Meclizine HCl 25 MG 1 tablet as needed Orally [facility] 06/10/2014 Active Albuterol Sulfate (2.5 MG/3ML)0.083% Inhalation 4 x a day prn 06/10/2014 Active Valium 5MG 1 tablet as needed O RAL at bedtime, 1/2 tab prn during the day [facility] 06/10/2014 Active Social History Tobacco [...] Status Risk Notes Problem Postmenopausal atrophic vaginitis (43843767) Postmenopausal atrophic vaginitis (N95.2) Active confirmed Problem Age-related osteoporosis (883401166) Age-related osteoporosis without current pathological fracture (M81.0) Active confirmed Problem Urgent desire to urinate (66694537) Urgency of urination (R39.15) Active confirmed Problem 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 Problem Chronic systolic heart failure (600547217) Chronic systolic (congestive) heart failure (I50.22) Active confirmed Problem Chronic obstructive pulmonary disease (93980427) Chronic obstructive pulmonary disease, unspecified (J44.9) Active confirmed Problem Functional urinary incontinence (340606283) Functional 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) Active confirmed Problem Personal history of primary malignant neoplasm of bronchus (690219867) 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) Active confirmed Vital Signs Temperature 97.7 degrees Fahrenheit 07/18/2024 Blood pressure diastolic 62 mm Hg 07/18/2024 Height 63 in 07/18/2024 Blood pressure systolic 102 mm Hg 07/18/2024 Weight 126 lbs 07/18/2024 BMI 22.32 kg/m2 07/18/2024 Encounters Encounter Location Date Provider Diagnosis Total [address] [address] 05/03/2024 Yennydorothy Elizalde Urgency of urination R39.15 and Abscess of vulva N76.[address] [address] 05/10/2024 Yenny Elizalde Abscess of vulva N76 .[address] [address] 05/17/2024 Yenny Elizalde Abscess of vulva N76 .[address] [address] 07/09/2024 Yenny Tonio Urgency of urination R39.15 ; Acute vaginitis N76.0 and Postmenopausal atrophic vaginitis N95.[address] [address] 07/18/2024 Yenny Elizalde Encounter for screening mammogram for malignant neoplasm of breast Z12.31 and Mastodynia N64.[address] [address] 05/10/2024 Yenny Lovettva Total [address] [address] 05/13/2024 Yenny Elizalde [facility] [address] [place] [address] 06/11/2024 Yenny Elizalde Assessments Encounter Date Diagnosis [...] [facility] AND DISCUSSED THIS PAT. THEY [...] Date MEDICARE [address] VEDA NIEVES [id number] SHIRLEY CINDA Self - patient is the insured MEDEX [address] [place] [address] [id number] DANIEL WATSONE Self - patient is [...]
--- OUTSIDE RECORDS SUMMARY | 2025-03-12 16:28 | XMS_ITS | Encounter Summary ---
Author Organization [facility] and [facility] Address [address] [place] [address] Care Team Providers Care Casino Accountant Name Role Phone Caitlyn Bowie MD Primary Care Provider +1- [phone] Encounter Details Date Type Department Care Team (Late st Contact Info) Description 03/08/2021 Scanned Document INTERFACE DEFAULT [address] [place] [address] System, Provider Not In Social History Tobacco [...] [facility] [address] [facility] [address] [place], [place] [address] Ronald Mills MD [address] [place] [address] [address] [place] [address] documented as of this [...] as of this encounter Care Teams Casino Accountant Relationship Specialty Start Date End Date Caitlyn Bowie MD [facility] [address] [address] PCP - General Internal Medicine 05/06/21 documented as of this encounter
--- OUTSIDE RECORDS SUMMARY | 2025-03-12 16:28 | XMS_ITS | Encounter Summary ---
Author Organization [facility] Address [address] [place] [address] Care Team Providers Care Hcc Coders Name Role Phone Caitlyn Bowie MD Primary Care Provider +1- [phone] Encounter Details Date Type Department Care Team (Late st Contact Info) Description 02/25/2021 Scanned Document INTERFACE DEFAULT [address] [place] [address] System, Provider Not In Social History Tobacco [...] [facility] at [facility] [address] [facility] Building [address] [place] [address] Ronald Mills MD [address] [place] [address] [address] [place] [address] documented as of this encounter [...] documented as of this encounter Care Teams Hcc Coders Relationship Specialty Start Date End Date Caitlyn Bowie MD [address] [address] PCP - General Internal Medicine 05/06/21 documented as of this encounter
--- OUTSIDE RECORDS SUMMARY | 2025-03-12 16:28 | XMS_ITS | Encounter Summary ---
Author Organization [facility] and [facility] Address [address] [place] [address] Care Team Providers Care Cloud Architect Name Role Phone Caitlyn Bowie MD Primary Care Provider +1- [phone] Encounter Details Date Type Department Care Team (Late st Contact Info) Description 04/16/2021 Scanned Document INTERFACE DEFAULT [address] [place] [address] System, Provider Not In Social History Tobacco [...] [facility] [address] [facility] Building [address] [place], [place] [phone] Ronald Mills MD [address] [place] [address] [address] [place] [address] documented as of this encounter [...] as of this encounter Care Teams Cloud Architect Relationship Specialty Start Date End Date Caitlyn Bowie MD [facility] [address] [address] PCP - General Internal Medicine 05/06/21 documented as of this encounter
--- OUTSIDE RECORDS SUMMARY | 2025-03-12 16:28 | XMS_ITS | Encounter Summary ---
Author Organization [facility] Address [address] [place] [address] Care Team Providers Care Table Games Supervisor Name Role Phone Caitlyn Bowie MD Primary Care Provider +1- [phone] Encounter Details Date Type Department Care Team (Late st Contact Info) Description 01/07/2014 Documentation [facility] [address] [place] [address] Shilpi Ibarra [address] [place] [address] Social History Tobacco Use Types Packs/Day Years [...] [facility] [address] [facility] Building [address] [place], [place] [address] Ronald Mills MD [address] [place] [address] documented as of this encounter Visit Diagnoses Not on filedocumented in this encounter Additional Health Concerns Infection Onset Date Last Indicated Resolved Time COVID-19 03/05/2022 03/05/2022 03/15/2022 7:18 PM EDT documented as of this encounter Care Teams Table Games Supervisor Relationship Specialty Start Date End Date Caitlyn Bowie MD [address] [place] [address] PCP - General Internal Medicine 05/06/21 Henry Kelly MD Pulmonary Department [address] [facility], [address] [place] [address] Physician Pulmonary Disease 09/06/17 06/22/20 documented as of this encounter
--- OUTSIDE RECORDS SUMMARY | 2025-03-12 16:28 | XMS_ITS | Encounter Summary ---
Author Organization [facility] and [facility] Address [address] [place] [address] Care Team Providers Care Personal Property Appraiser Name Role Phone Caitlyn Bowie MD Primary Care Provider +1- [phone] Encounter Details Date Type Department Care Team (Late st Contact Info) Description 03/22/2021 Scanned Document INTERFACE DEFAULT [address] [place] [address] System, Provider Not In Social History Tobacco [...] Center at [facility] [address] [facility] Building [address] [place] [address] Ronald Mills MD [address] [place] [address] [address] [place] [address] documented as of this encounter Visit Diagnoses Not on filedocumented in this encounter Additional Health Concerns Infection Onset Date Last Indicated Resolved Time COVID-19 03/05/2022 03/05/2022 03/15/2022 7:18 PM EDT Assessment Noted Time PHQ-9 Depression Total Score: 2 11/07/19 19 2:06 PM EDT documented as of this encounter Care Teams Personal Property Appraiser Relationship Specialty Start Date End Date Caitlyn Bowie MD [address] [address] PCP - General Internal Medicine 05/06/21 documented as of this encounter
--- OUTSIDE RECORDS SUMMARY | 2025-03-12 16:28 | XMS_ITS | Encounter Summary ---
Author Organization [facility] Address [address] [place] [address] Care Team Providers Care Professor Of Biological Sciences Name Role Phone Caitlyn Bowie MD Primary Care Provider +1- [phone] Encounter Details Date Type Department Care Team (Late st Contact Info) Description 01/26/2018 Scanned Document [facility] Health Information Management [address] [place] [address] External, Provider Social History Tobacco Use Types [...] [facility] [place] [address] [facility] Building [address] [place], [place] [address] Ronald Mills MD [address] [place] [address] [address] [place] [address] documented as of this encounter [...] of this encounter Care Teams Professor Of Biological Sciences Relationship Specialty Start Date End Date Caitlyn Bowie MD [address] [facility] 1 [place] [address] PCP - General Internal Medicine 05/06/21 Henry Kelly MD Pulmonary Department [address] [facility] [place] [address] Physician Pulmonary Disease 09/06/17 06/22/20 documented as of this encounter
--- OUTSIDE RECORDS SUMMARY | 2025-03-12 16:28 | XMS_ITS | Encounter Summary ---
Author Organization [facility] Address [address] [place] [address] Care Team Providers Care Manufacturing Automation Engineer Name Role Phone Caitlyn Bowie MD Primary Care Provider +1- [phone] Encounter Details Date Type Department Care Team (Late st Contact Info) Description 03/14/2021 Scanned Document INTERFACE DEFAULT [address] [place] [address] System, Provider Not In Social History Tobacco [...] Center at [facility] [address] [facility] Building [address] [place], [place] [address] Ronald Mills MD [address] [place] [address] [address] [place] [address] documented as of this encounter [...] as of this encounter Care Teams Manufacturing Automation Engineer Relationship Specialty Start Date End Date Caitlyn Bowie MD [address] [address] PCP - General Internal Medicine 05/06/21 documented as of this encounter
--- OUTSIDE RECORDS SUMMARY | 2025-03-12 16:28 | XMS_ITS | Encounter Summary ---
Author Organization [facility] Address [address] [place] [address] Care Team Providers Care Thumb Sewer Name Role Phone Caitlyn Bowie MD Primary Care Provider +1- [phone] Encounter Details Date Type Department Care Team (Late st Contact Info) Description 01/26/2018 Scanned Document [facility] Health Information Management [address] [place] [address] External, Provider Social History Tobacco Use Types [...] Center at [facility] [address] [facility] Building [address] [place], [place] [address] Ronald Mills MD [address] [facility] [address]1 [place] [address] documented as of this encounter Visit Diagnoses Not on filedocumented in this encounter Additional Health Concerns Infection Onset Date Last Indicated Resolved Time COVID-19 03/05/2022 03/05/2022 03/15/2022 7:18 PM EDT documented as of this encounter Care Teams Thumb Sewer Relationship Specialty Start Date End Date Caitlyn Bowie MD [address] [facility] 1 [place] [address] PCP - General Internal Medicine 05/06/21 Henry Kelly MD Pulmonary Department 175 [facility], [address] [place] [address] Physician Pulmonary Disease 09/06/17 06/22/20 documented as of this encounter
--- OUTSIDE RECORDS SUMMARY | 2025-03-12 16:28 | XMS_ITS | Encounter Summary ---
Author Organization [facility] Address [address] [place] [address] Care Team Providers Care Media Consultant Outside Sales Name Role Phone Caitlyn Bowie MD Primary Care Provider +1- [phone] Encounter Details Date Type Department Care Team (Late st Contact Info) Description 04/26/2017 Scanned Document Cardiovascular Medicine at [address] [place] [address] Norma Renee MD [address] [place] [phone] Social History Tobacco Use Types Packs/Day Years [...] [facility] 240 [facility] Building [address] [place], [place] [address] Ronald Mills MD [address] [place] [address] [address] [place] [address] documented as of this encounter Visit Diagnoses Not on filedocumented in this encounter Additional Health Concerns Infection Onset Date Last Indicated Resolved Time COVID-19 03/05/2022 03/05/2022 03/15/2022 7:18 PM EDT documented as of this encounter Care Teams Media Consultant Outside Sales Relationship Specialty Start Date End Date Caitlyn Bowie MD 3400 [facility] 1 [place] [address] PCP - General Internal Medicine 05/06/21 Henry Kelly MD Pulmonary Department 175 [facility], [address] [place] [address] Physician Pulmonary Disease 09/06/17 06/22/20 documented as of this encounter
--- OUTSIDE RECORDS SUMMARY | 2025-03-12 16:28 | XMS_ITS | Encounter Summary ---
Author Organization [facility] and [facility] Address [address] [place] [address] Care Team Providers Care Treatment Plant Operator Name Role Phone Caitlyn Bowie MD Primary Care Provider +1- [phone] Encounter Details Date Type Department Care Team (Late st Contact Info) Description 02/15/2021 Scanned Document INTERFACE DEFAULT [address] [place] [address] System, Provider Not In Social History Tobacco [...] [facility] at [facility] 240 [facility] Building [address] [place] [address] Ronald Mills MD [address] [place] [address] [address] [place] [address] documented as of this encounter [...] End Date Caitlyn Bowie MD [address] [address] PCP - General Internal Medicine 05/06/21 documented as of this encounter
--- OUTSIDE RECORDS SUMMARY | 2025-03-12 16:28 | XMS_ITS | Encounter Summary ---
Author Organization [facility] Address [address] [place] [address] Care Team Providers Care Internet Marketing Executive Name Role Phone Caitlyn Bowie MD Primary Care Provider +1- [phone] Encounter Details Date Type Department Care Team (Late st Contact Info) Description 03/15/2021 Scanned Document INTERFACE DEFAULT [address] [place] [address] System, Provider Not In Social History Tobacco [...] [facility] Building [address] [place], [place] [address] Ronald Mills MD [address] [place] [address] [address] [place] [address] documented as of this encounter [...] as of this encounter Care Teams Internet Marketing Executive Relationship Specialty Start Date End Date Caitlyn Bowie MD [facility] [address] [address] PCP - General Internal Medicine 05/06/21 documented as of this encounter
--- OUTSIDE RECORDS SUMMARY | 2025-03-12 16:28 | XMS_ITS | Encounter Summary ---
Author Organization [facility] Address [address] [place] [address] Care Team Providers Care Roller Helper Name Role Phone Caitlyn Bowie MD Primary Care Provider +1- [phone] Encounter Details Date Type Department Care Team (Late st Contact Info) Description 09/01/2017 Scanned Document [facility] Health Information Management [address] [place] [address] External, Provider Social History Tobacco Use Types [...] Telemedicine [facility] at [facility] 240 [facility] Building [address] [place], [place] [address] Ronald Mills MD 240 [facility] A1 [place] [address] documented as of this encounter [...] as of this encounter Care Teams Roller Helper Relationship Specialty Start Date End Date Caitlyn Bowie MD [facility] 1 [place] [address] PCP - General Internal Medicine 05/06/21 Henry Kelly MD Pulmonary Department 175 [facility], [address] [place] [address] Physician Pulmonary Disease 09/06/17 06/22/20 documented as of this encounter
--- OUTSIDE RECORDS SUMMARY | 2025-03-12 16:28 | XMS_ITS | Encounter Summary ---
Author Organization [facility] and [facility] Address [address] [place] [address] Care Team Providers Care Digital Production Operator Name Role Phone Caitlyn Bowie MD Primary Care Provider +1- [phone] Encounter Details Date Type Department Care Team (Late st Contact Info) Description 02/28/2021 Scanned Document INTERFACE DEFAULT [address] [place] [address] System, Provider Not In Social History Tobacco [...] [facility] Building [address] [place] [address] Ronald Mills MD [address] [place] [address] [address] [place] [address] documented as of this encounter [...] as of this encounter Care Teams Digital Production Operator Relationship Specialty Start Date End Date Caitlyn Bowie MD [address] [address] PCP - General Internal Medicine 05/06/21 documented as of this encounter
--- OUTSIDE RECORDS SUMMARY | 2025-03-12 16:28 | XMS_ITS | Encounter Summary ---
Author Organization [facility] Address [address] [place] [address] Care Team Providers Care Material Control Specialist Name Role Phone Caitlyn Bowie MD Primary Care Provider +1- [phone] Encounter Details Date Type Department Care Team (Late st Contact Info) Description 03/23/2021 Scanned Document INTERFACE DEFAULT [address] [place] [address] System, Provider Not In Social History Tobacco [...] [facility] Building [address] [place] [address] Ronald Mills MD [address] [place] [address] [address] [place] [address] documented as of this encounter [...] as of this encounter Care Teams Material Control Specialist Relationship Specialty Start Date End Date Caitlyn Bowie MD [address] [address] PCP - General Internal Medicine 05/06/21 documented as of this encounter
--- OUTSIDE RECORDS SUMMARY | 2025-03-12 16:28 | XMS_ITS | Encounter Summary ---
Author Organization [facility] [place] [facility] and [facility] Address [address] [place] [address] Care Team Providers Care Meat And Seafood Manager Name Role Phone Caitlyn Bowie MD Primary Care Provider +1- [phone] Encounter Details Date Type Department Care Team (Late st Contact Info) Description 04/02/2021 Scanned Document INTERFACE DEFAULT [address] [place] [address] System, Provider Not In Social History Tobacco [...] Center at [facility] 240 [facility] Building [address] [place], [place] [address] Ronald Mills MD [address] [place] [address] [address] [place] [address] documented as of this encounter [...] as of this encounter Care Teams Meat And Seafood Manager Relationship Specialty Start Date End Date Caitlyn Bowie MD [address] [address] PCP - General Internal Medicine 05/06/21 documented as of this encounter
--- OUTSIDE RECORDS SUMMARY | 2025-03-12 16:28 | XMS_ITS | Encounter Summary ---
Author Organization [facility] and [facility] Address [address] [place] [address] Care Team Providers Care Body Shop Manager Name Role Phone Caitlyn Bowie MD Primary Care Provider +1- [phone] Encounter Details Date Type Department Care Team (Late st Contact Info) Description 03/24/2021 Scanned Document INTERFACE DEFAULT [address] [place] [address] System, Provider Not In Social History Tobacco [...] Health – [facility] 240 [facility] Building [address] [place] [address] Ronald Mills MD [address] [place] [address] [address] [place] [address] documented as of this encounter Visit Diagnoses Not on filedocumented in this encounter Additional Health Concerns Infection Onset Date Last Indicated Resolved Time COVID-19 03/05/2022 03/05/2022 03/15/2022 7:18 PM EDT Assessment Noted Time PHQ-9 Depression Total Score: 2 11/07/19 19 2:06 PM EDT documented as of this encounter Care Teams Body Shop Manager Relationship Specialty Start Date End Date Caitlyn Bowie MD [address] [address] PCP - General Internal Medicine 05/06/21 documented as of this encounter
--- OUTSIDE RECORDS SUMMARY | 2025-03-12 16:28 | XMS_ITS | Encounter Summary ---
Author Organization [facility] Address [address] [place] [address] Phone Care Team Providers Care Application Integration Engineer Name Role Phone Caitlyn Bowie MD Primary Care Provider +1- [phone] Encounter Details Date Type Department Care Team (Late Contact Info) Description 12/12/2024 Documentation Only [facility] [address] [place] [address] Marina Abdi [address] [place] [address] Social History Tobacco Use Types [...] [facility] [address] [place] [address] Rubén Ashraf MD [address] [place] [address] [place] [address] documented as of this encounter Visit Diagnoses Not on filedocumented in this encounter Care Teams Application Integration Engineer Relationship Specialty Start Date End Date Caitlyn Bowie MD [address] [place], [place] PCP - General Internal Medicine 09/24/24 documented as of this encounter
--- OUTSIDE RECORDS SUMMARY | 2025-03-12 16:28 | XMS_ITS | Encounter Summary ---
Author Organization [facility] Address [address] [place] [address] Care Team Providers Care Deployment Specialist Name Role Phone Caitlyn Bowie MD Primary Care Provider +1- [phone] Encounter Details Date Type Department Care Team (Late st Contact Info) Description 02/24/2021 Scanned Document INTERFACE DEFAULT [address] [place] [address] System, Provider Not In Social History Tobacco [...] [facility] at [facility] [address] [facility] [address] [place] [address] Ronald Mills MD [address] [place] [address] [address] [place] [address] documented as of this encounter [...] documented as of this encounter Care Teams Deployment Specialist Relationship Specialty Start Date End Date Caitlyn Bowie MD [address] [address] PCP - General Internal Medicine 05/06/21 documented as of this encounter
--- OUTSIDE RECORDS SUMMARY | 2025-03-12 16:28 | XMS_ITS | Encounter Summary ---
Author Organization [facility] and [facility] Address [address] [place] [address] Care Team Providers Care Moving Van Driver Name Role Phone Caitlyn Bowie MD Primary Care Provider +1- [phone] Encounter Details Date Type Department Care Team (Late st Contact Info) Description 02/21/2017 Scanned Document [facility] Health Information Management [address] [place] [address] External, Provider Social History Tobacco Use Types [...] [facility] at [facility] 240 [facility] Building [address] [place], [place] [phone] Ronald Mills MD 240 [facility] [address] [place] [address] documented as of this encounter [...] documented as of this encounter Care Teams Moving Van Driver Relationship Specialty Start Date End Date Caitlyn Bowie MD 3400 [facility] Max 1 [place] [address] PCP - General Internal Medicine 05/06/21 Henry Kelly MD Pulmonary Department 175 [facility], [address] [place] [address] Physician Pulmonary Disease 09/06/17 06/22/20 documented as of this encounter
--- OUTSIDE RECORDS SUMMARY | 2025-03-12 16:28 | XMS_ITS | Encounter Summary ---
Author Organization [facility] Address [address] [place] [address] Care Team Providers Care Chute Feeder Name Role Phone Caitlyn Bowie MD Primary Care Provider +1- [phone] Encounter Details Date Type Department Care Team (Late st Contact Info) Description 09/18/2020 Scanned Document INTERFACE DEFAULT [address] [place] [address] System, Provider Not In Social History Tobacco [...] [facility] 240 [facility] [address] [place] [address] Ronald Mills MD [address] [place] [address] [address] [place] [address] documented as of this encounter Visit Diagnoses Not on filedocumented in this encounter Additional Health Concerns Infection Onset Date Last Indicated Resolved Time COVID-19 03/05/2022 03/05/2022 03/15/2022 7:18 PM EDT Assessment Noted Time PHQ-9 Depression Total Score: 2 11/07/19 19 2:06 PM EDT documented as of this encounter Care Teams Chute Feeder Relationship Specialty Start Date End Date Caitlyn Bowie MD [address] [address] PCP - General Internal Medicine 05/06/21 documented as of this encounter
--- OUTSIDE RECORDS SUMMARY | 2025-03-12 16:28 | XMS_ITS | Encounter Summary ---
Author Organization [facility] and [facility] Address [address] [place] [address] Care Team Providers Care Supervisor Television Chassis Repair Name Role Phone aCitlyn Bowie MD Primary Care Provider +1- [phone] Encounter Details Date Type Department Care Team (Late st Contact Info) Description 10/07/2013 Scanned Document Thoracic Oncology Program at [address] [address] Suzy Kong MD [address] [place] [address] Social History Tobacco Use Types Packs/Day [...] Telemedicine [facility] at [facility] 240 [facility] [address] [place], [place] [phone] Ronald Mills MD 240 [facility] A1 [place] [address] documented as of this encounter Visit Diagnoses Not on filedocumented in this encounter Additional Health Concerns Infection Onset Date Last Indicated Resolved Time COVID-19 03/05/2022 03/05/2022 03/15/2022 7:18 PM EDT documented as of this encounter Care Teams Supervisor Television Chassis Repair Relationship Specialty Start Date End Date Caitlyn Bowie MD 3400 [facility] Max 1 [place] [address] PCP - General Internal Medicine 05/06/21 Henry Kelly MD Pulmonary Department 175 [facility], [address] [place] [address] Physician Pulmonary Disease 09/06/17 06/22/20 documented as of this encounter
--- OUTSIDE RECORDS SUMMARY | 2025-03-12 16:28 | XMS_ITS | Encounter Summary ---
Author Organization [facility] and [facility] Address [address] [place] [address] Care Team Providers Care Maintenance Mechanic Telephone Name Role Phone Caitlyn Bowie MD Primary Care Provider +1- [phone] Encounter Details Date Type Department Care Team (Late st Contact Info) Description 04/11/2021 Scanned Document INTERFACE DEFAULT [address] [place] [address] System, Provider Not In Social History Tobacco [...] [facility] at [facility] 240 [facility] [address] [place], [place] [phone] Ronald Mills MD [address] [place] [address] [address] [place] [address] documented as of this encounter [...] as of this encounter Care Teams Maintenance Mechanic Telephone Relationship Specialty Start Date End Date Caitlyn Bowie MD [address] [address] PCP - General Internal Medicine 05/06/21 documented as of this encounter
--- OUTSIDE RECORDS SUMMARY | 2025-03-12 16:28 | XMS_ITS | Encounter Summary ---
Author Organization [facility] and [facility] Address [address] [place] [address] Care Team Providers Care Formula Mixer Name Role Phone Caitlyn Bowie MD Primary Care Provider +1- [phone] Encounter Details Date Type Department Care Team (Late st Contact Info) Description 04/27/2017 Scanned Document [facility] Health Information Management [address] [place] [address] External, Provider Social History Tobacco Use Types [...] [facility] at [facility] 240 [facility] Building [address] [place], [place] [phone] Ronald Mills MD 240 [facility] A1 [place] [address] documented as of this encounter Visit Diagnoses Not on filedocumented in this encounter Additional Health Concerns Infection Onset Date Last Indicated Resolved Time COVID-19 03/05/2022 03/05/2022 03/15/2022 7:18 PM EDT documented as of this encounter Care Teams Formula Mixer Relationship Specialty Start Date End Date Caitlyn Bowie MD 3400 [facility] 1 [place] [address] PCP - General Internal Medicine 05/06/21 Henry Kelly MD Pulmonary Department 175 [facility], [address] [place] [address] Physician Pulmonary Disease 09/06/17 06/22/20 documented as of this encounter
--- OUTSIDE RECORDS SUMMARY | 2025-03-12 16:28 | XMS_ITS | Encounter Summary ---
Author Organization [facility] and [facility] Address [address] [place] [address] Care Team Providers Care Field Crew Chief Name Role Phone Caitlyn Bowie MD Primary Care Provider +1- [phone] Encounter Details Date Type Department Care Team (Late st Contact Info) Description 04/12/2021 Scanned Document INTERFACE DEFAULT [address] [place] [address] System, Provider Not In Social History Tobacco [...] [facility] 240 [facility] Building [address] [place], [place] [phone] Ronald Mills MD [address] [place] [address] [address] [place] [address] documented as of this encounter [...] as of this encounter Care Teams Field Crew Chief Relationship Specialty Start Date End Date Caitlyn Bowie MD [address] [address] PCP - General Internal Medicine 05/06/21 documented as of this encounter
--- OUTSIDE RECORDS SUMMARY | 2025-03-12 16:29 | XMS_ITS | Encounter Summary ---
Author Organization [facility] Address [address] [place] [address] Care Team Providers Care Sheet Pile Hammer Operator Name Role Phone Caitlyn Bowie MD Primary Care Provider +1- [phone] Encounter Details Date Type Department Care Team (Late st Contact Info) Description 03/26/2015 Scanned Document Cardiovascular Medicine at [address] [place] [address] Norma Renee MD [address] [place] [phone] Social History Tobacco Use Types Packs/Day Years [...] 4:00 PM EDT Telemedicine Cancer Center at [address] [place], [place] [phone] Ronald Mills MD [address] [place] [address] [address] [place] [address] documented as of this encounter Visit Diagnoses Not on filedocumented in this encounter Additional Health Concerns Infection Onset Date Last Indicated Resolved Time COVID-19 03/05/2022 03/05/2022 03/15/2022 7:18 PM EDT documented as of this encounter Care Teams Sheet Pile Hammer Operator Relationship Specialty Start Date End Date Caitlyn Bowie MD 3400 [facility] 1 [place] [address] PCP - General Internal Medicine 05/06/21 Henry Kelly MD Pulmonary Department 175 [facility], [address] [place] [address] Physician Pulmonary Disease 09/06/17 06/22/20 documented as of this encounter
--- OUTSIDE RECORDS SUMMARY | 2025-03-12 16:29 | XMS_ITS | Encounter Summary ---
Author Organization [facility] Address [address] [place] [address] Care Team Providers Care Vegetable Thinner Name Role Phone Caitlyn Bowie MD Primary Care Provider +1- [phone] Encounter Details Date Type Department Care Team (Late Contact Info) Description 11/18/2021 Scanned Document [facility] Health Information Management [address] [place] [address] External, Provider Social History Tobacco Use Types [...] [facility] 240 [facility] Building [address] [place], [place] [phone] Ronald Mills MD [address] [place] [address] [address] [place] [address] documented as of this encounter Visit Diagnoses Not on filedocumented in this encounter Additional Health Concerns Infection Onset Date Last Indicated Resolved Time COVID-19 03/05/2022 03/05/2022 03/15/2022 7:18 PM EDT Assessment Noted Time PHQ-9 Depression Total Score: 2 11/07/19 19 2:06 PM EDT documented as of this encounter Care Teams Vegetable Thinner Relationship Specialty Start Date End Date Caitlyn Bowie MD [address] [address] PCP - General Internal Medicine 05/06/21 documented as of this encounter
--- OUTSIDE RECORDS SUMMARY | 2025-03-12 16:29 | XMS_ITS | Encounter Summary ---
Author Organization [facility] Address [address] [place] [address] Care Team Providers Care County Assessor Name Role Phone Caitlyn Bwoie MD Primary Care Provider +1- [phone] Encounter Details Date Type Department Care Team (Late st Contact Info) Description 12/28/2021 Scanned Document INTERFACE DEFAULT [address] [place] [address] System, Provider Not In Social History Tobacco [...] at [facility] 240 [facility] [address] [place] [address] Ronald Mills MD [address] [place] [address] [address] [place] [address] documented as of this encounter Visit Diagnoses Not on filedocumented in this encounter Additional Health Concerns Infection Onset Date Last Indicated Resolved Time COVID-19 03/05/2022 03/05/2022 03/15/2022 7:18 PM EDT Assessment Noted Time PHQ-9 Depression Total Score: 2 11/07/19 19 2:06 PM EDT documented as of this encounter Care Teams County Assessor Relationship Specialty Start Date End Date Caitlyn Bowie MD [address] [address] PCP - General Internal Medicine 05/06/21 documented as of this encounter
--- OUTSIDE RECORDS SUMMARY | 2025-03-12 16:29 | XMS_ITS | Encounter Summary ---
Author Organization [facility] Address [address] [place] [address] Care Team Providers Care Parachute Folder Name Role Phone Caitlyn Bowie MD Primary Care Provider +1- [phone] Encounter Details Date Type Department Care Team (Late st Contact Info) Description 11/07/2014 Scanned Document [facility] Health Information Management [address] [place] [address] External, Provider Social History Tobacco Use Types [...] Center at [facility] 240 [facility] Building [address] [place], [place] [phone] Ronald Mills MD 240 [facility] A1 [place] [address] documented as of this encounter Visit Diagnoses Not on filedocumented in this encounter Additional Health Concerns Infection Onset Date Last Indicated Resolved Time COVID-19 03/05/2022 03/05/2022 03/15/2022 7:18 PM EDT documented as of this encounter Care Teams Parachute Folder Relationship Specialty Start Date End Date Caitlyn Bowie MD 3400 [facility] 1 [place] [address] PCP - General Internal Medicine 05/06/21 Henry Kelly MD Pulmonary Department 175 [facility], [address] [place] [address] Physician Pulmonary Disease 09/06/17 06/22/20 documented as of this encounter
--- OUTSIDE RECORDS SUMMARY | 2025-03-12 16:29 | XMS_ITS | Encounter Summary ---
Author Organization [facility] and [facility] Address [address] [place] [address] Care Team Providers Care Fruit Ii Farmworker Name Role Phone Caitlyn Bowie MD Primary Care Provider +1- [phone] Encounter Details Date Type Department Care Team (Late st Contact Info) Description 02/02/2018 Scanned Document [facility] Health Information Management [address] [place] [address] External, Provider Social History Tobacco Use Types [...] [facility] at [facility] [address] [facility] [address] [place], [place] [phone] Ronald Mills MD [address] [place] [address] [address] [place] [address] documented as of this encounter [...] as of this encounter Care Teams Fruit Ii Farmworker Relationship Specialty Start Date End Date Caitlyn Bowie MD 3400 [facility] 1 [place] [address] PCP - General Internal Medicine 05/06/21 Henry Kelly MD Pulmonary Department 175 [facility], [address] [place] [address] Physician Pulmonary Disease 09/06/17 06/22/20 documented as of this encounter
--- OUTSIDE RECORDS SUMMARY | 2025-03-12 16:29 | XMS_ITS | Encounter Summary ---
Author Organization [facility] and [facility] Address [address] [place] [address] Care Team Providers Care Grocery Deliverer Name Role Phone Caitlyn Bowie MD Primary Care Provider +1- [phone] Encounter Details Date Type Department Care Team (Late st Contact Info) Description 12/04/2014 Scanned Document [facility] Health Information Management [address] [place] [address] External, Provider Social History Tobacco Use Types [...] [facility] Building [address] [place], [place] [phone] Ronald Mills MD 240 [facility] [address] [place] [address] documented as of this encounter Procedures Procedure Name Priority Date/Time Associated Diagnosis Comments LAB SCAN Routine 12/04/2014 documented in this encounter Results * Lab Scan (12/04/2014) Blood specimen (specimen) us Provider External LAB BLOOD ORDERABLES Final Res ult [facility] documented in this encounter Visit Diagnoses Not on filedocumented in this encounter Additional Health Concerns Infection Onset Date Last Indicated Resolved Time COVID-19 03/05/2022 03/05/2022 03/15/2022 7:18 PM EDT documented as of this encounter Care Teams Grocery Deliverer Relationship Specialty Start Date End Date Caitlyn Bowie MD 3400 [facility] 1 [place] [address] PCP - General Internal Medicine 05/06/21 Henry Kelly MD Pulmonary Department 175 [facility], [address] [place] [address] Physician Pulmonary Disease 09/06/17 06/22/20 documented as of this encounter
--- OUTSIDE RECORDS SUMMARY | 2025-03-12 16:29 | XMS_ITS | Encounter Summary ---
Author Organization [facility] Address [address] [place] [address] Care Team Providers Care Jewelry Drill Operator Name Role Phone Caitlyn Bowie MD Primary Care Provider +1- [phone] Encounter Details Date Type Department Care Team (Late st Contact Info) Description 03/14/2018 Scanned Document [facility] Health Information Management [address] [place] [address] External, Provider Social History Tobacco Use Types [...] at [facility] 240 [facility] Building [address] [place], [place] [phone] Ronald Mills MD [address] [place] [address] [address] [place] [address] documented as of this encounter [...] as of this encounter Care Teams Jewelry Drill Operator Relationship Specialty Start Date End Date Caitlyn Bowie MD 3400 [facility] 1 [place] [address] PCP - General Internal Medicine 05/06/21 Henry Kelly MD Pulmonary Department 175 [facility], [address] [place] [address] Physician Pulmonary Disease 09/06/17 06/22/20 documented as of this encounter
--- OUTSIDE RECORDS SUMMARY | 2025-03-12 16:29 | XMS_ITS | Encounter Summary ---
Author Organization [facility] Address [address] [place] [address] Care Team Providers Care Quality Assurance Nurse Name Role Phone Caitlyn Bowie MD Primary Care Provider +1- [phone] Encounter Details Date Type Department Care Team (Late st Contact Info) Description 11/18/2021 Scanned Document INTERFACE DEFAULT [address] [place] [phone] System, Provider Not In Social History Tobacco [...] Center at [facility] 240 [facility] [address] [place] [address] Ronald Mills MD [address] [place] [address] [address] [place] [address] documented as of this encounter Visit Diagnoses Not on filedocumented in this encounter Additional Health Concerns Infection Onset Date Last Indicated Resolved Time COVID-19 03/05/2022 03/05/2022 03/15/2022 7:18 PM EDT Assessment Noted Time PHQ-9 Depression Total Score: 2 11/07/19 19 2:06 PM EDT documented as of this encounter Care Teams Quality Assurance Nurse Relationship Specialty Start Date End Date Caitlyn Bowie MD [address] [address] PCP - General Internal Medicine 05/06/21 documented as of this encounter
--- OUTSIDE RECORDS SUMMARY | 2025-03-12 16:29 | XMS_ITS | Encounter Summary ---
Author Organization [facility] Address [address] [place] [address] Care Team Providers Care Telephone Quotation Clerk Name Role Phone Caitlyn Bowie MD Primary Care Provider +1- [phone] Encounter Details Date Type Department Care Team (Late st Contact Info) Description 04/03/2018 Scanned Document [facility] [address] [place] [phone] Provider, historical . Social History Tobacco Use [...] [facility] 240 [facility] Building [address] [place], [place] [address] Ronald Mills MD [address] [place] [address] [address] [place] [address] documented [...] as of this encounter Care Teams Telephone Quotation Clerk Relationship Specialty Start Date End Date Caitlyn Bowie MD 3400 [facility] 1 [place] [address] PCP - General Internal Medicine 05/06/21 Henry Kelly MD Pulmonary Department 175 [facility], [address] [place] [address] Physician Pulmonary Disease 09/06/17 06/22/20 documented as of this encounter
--- OUTSIDE RECORDS SUMMARY | 2025-03-12 16:29 | XMS_ITS | Encounter Summary ---
Author Organization [facility] Address [address] [place] [address] Care Team Providers Care Card Game Operator Name Role Phone Caitlyn Bowie MD Primary Care Provider +1- [phone] Encounter Details Date Type Department Care Team (Late st Contact Info) Description 06/25/2015 Scanned Document [facility] Health Information Management [address] [place] [phone] External, Provider Social History Tobacco Use Types [...] [facility] 240 [facility] Building [address] [place], [place] [phone] Ronald Mills MD 240 [facility] A1 [place] [address] documented as of this encounter Visit Diagnoses Not on filedocumented in this encounter Additional Health Concerns Infection Onset Date Last Indicated Resolved Time COVID-19 03/05/2022 03/05/2022 03/15/2022 7:18 PM EDT documented as of this encounter Care Teams Card Game Operator Relationship Specialty Start Date End Date Caitlyn Bowie MD 3400 [facility] 1 [place] [address] PCP - General Internal Medicine 05/06/21 Henry Kelly MD Pulmonary Department 175 [facility], [address] [place] [address] Physician Pulmonary Disease 09/06/17 06/22/20 documented as of this encounter
--- OUTSIDE RECORDS SUMMARY | 2025-03-12 16:29 | XMS_ITS | Encounter Summary ---
Author Organization [facility] and [facility] Address [address] [place] [address] Care Team Providers Care Employment Counselor Name Role Phone Caitlyn Bowie MD Primary Care Provider +1- [phone] Reason for Visit * Reason Comments Other Encounter Details Date Type Department Care Team (Late st Contact Info) Description 01/12/2021 Telephone [facility] at [address] - [address] [phone] Ronald Mills MD [address] [place] [address] Other Social History Tobacco Use Types [...] EDT Lab orders were faxed to [facility] @ [phone]. Patient notified by phone. * Telephone Encounter - Kathleen Nasima - 01/12/2021 8:46 AM EDT Pt called looking to speak with Kirstin RE: lab orders sent to lab [facility] lab Looking to have labs sent there A.S.A.P at some point today She is scheduled with Dr. Mills on January 28 documented in this encounter Plan of Treatment Upcoming Encounters Date Type Department Care Team (Late st Contact Info) Description 04/25/2025 4:00 PM EDT Telemedicine [facility] 240 [facility] Building [address] [place], [place] [phone] Ronald Mills MD 240 [facility] Max [address] [place] [address] documented as of this encounter Visit Diagnoses Not on filedocumented in this encounter Additional Health Concerns Infection Onset Date Last Indicated Resolved Time COVID-19 03/05/2022 03/05/2022 03/15/2022 7:18 PM EDT Assessment Noted Time PHQ-9 Depression Total Score: 2 11/07/19 19 2:06 PM EDT documented as of this encounter Care Teams Employment Counselor Relationship Specialty Start Date End Date Caitlyn Bowie MD [address] [address] PCP - General Internal Medicine 05/06/21 documented as of this encounter
--- OUTSIDE RECORDS SUMMARY | 2025-03-12 16:29 | XMS_ITS | Encounter Summary ---
Author Organization [facility] and [facility] Address [address] [place] [address] Care Team Providers Care Campus Aide Name Role Phone Caitlyn Bowie MD Primary Care Provider +1- [phone] Encounter Details Date Type Department Care Team (Late st Contact Info) Description 11/09/2020 Scanned Document INTERFACE DEFAULT [address] [place] [address] System, Provider Not In Social History Tobacco [...] [facility] 240 [facility] Building [address] [place] [address] Ronald Mills MD [address] [place] [address] [address] [place] [address] documented as of this encounter Visit Diagnoses Not on filedocumented in this encounter Additional Health Concerns Infection Onset Date Last Indicated Resolved Time COVID-19 03/05/2022 03/05/2022 03/15/2022 7:18 PM EDT Assessment Noted Time PHQ-9 Depression Total Score: 2 11/07/19 19 2:06 PM EDT documented as of this encounter Care Teams Campus Aide Relationship Specialty Start Date End Date Caitlyn Bowie MD [address] [address] PCP - General Internal Medicine 05/06/21 documented as of this encounter
--- OUTSIDE RECORDS SUMMARY | 2025-03-12 16:29 | XMS_ITS | Encounter Summary ---
Author Organization [facility] and [facility] Address [address] [place] [address] Care Team Providers Care Billing Spec Name Role Phone Caitlyn Bowie MD Primary Care Provider +1- [phone] Encounter Details Date Type Department Care Team (Late st Contact Info) Description 02/11/2021 Scanned Document INTERFACE DEFAULT [address] [place] [address] System, Provider Not In Social History Tobacco [...] [place] 240 [facility] Building [address] [place] [address] Ronald Mills MD [address] [place] [address] [address] [place] [address] documented as [...] as of this encounter Care Teams Billing Spec Relationship Specialty Start Date End Date Caitlyn Bowie MD [address] [address] PCP - General Internal Medicine 05/06/21 documented as of this encounter
--- OUTSIDE RECORDS SUMMARY | 2025-03-12 16:29 | XMS_ITS | Encounter Summary ---
Author Organization [facility] Address [address] [place] [address] Care Team Providers Care Decorating Machine Tender Name Role Phone Caitlyn Bowie MD Primary Care Provider +1- [phone] Encounter Details Date Type Department Care Team (Late st Contact Info) Description 01/13/2021 Scanned Document [facility] at [address] [address] Ronald Mills MD [address] [address] Social History Tobacco Use Types [...] PM EDT Telemedicine Cancer Center at [address] [place] [address] Ronald Mills MD [address] [address] documented as of this encounter [...] documented as of this encounter Care Teams Decorating Machine Tender Relationship Specialty Start Date End Date Caitlyn Bowie MD [address] [address] PCP - General Internal Medicine 05/06/21 documented as of this encounter
--- OUTSIDE RECORDS SUMMARY | 2025-03-12 16:29 | XMS_ITS | Encounter Summary ---
Author Organization [facility] and [facility] Address [address] [place] [address] Care Team Providers Care Graphite Pan Drier Tender Name Role Phone Caitlyn Bowie MD Primary Care Provider +1- [phone] Encounter Details Date Type Department Care Team (Late st Contact Info) Description 01/27/2021 Scanned Document Cancer Center at [address] [address] External, Provider Social History Tobacco Use Types [...] [facility] 240 [facility] Building [address] [place], [place] [id number] Ronald Mills MD [address] [place] [address] [address] [place] [address] documented as of this encounter [...] documented as of this encounter Care Teams Graphite Pan Drier Tender Relationship Specialty Start Date End Date Caitlyn Bowie MD [address] [address] PCP - General Internal Medicine 05/06/21 documented as of this encounter
--- OUTSIDE RECORDS SUMMARY | 2025-03-12 16:29 | XMS_ITS | Encounter Summary ---
Author Organization [facility] and [facility] Address [address] [place] [address] Care Team Providers Care Acid Conditioner Name Role Phone Caitlyn Bowie MD Primary Care Provider +1- [phone] Encounter Details Date Type Department Care Team (Late st Contact Info) Description 04/28/2015 Scanned Document [facility] Health Information Management [address] [place] [address] External, Provider Social History Tobacco Use Types [...] [facility] 240 [facility] Building [address] [place], [place] [phone] Ronald Mills MD 240 [facility] A1 [place] [address] documented as of this encounter Visit Diagnoses Not on filedocumented in this encounter Additional Health Concerns Infection Onset Date Last Indicated Resolved Time COVID-19 03/05/2022 03/05/2022 03/15/2022 7:18 PM EDT documented as of this encounter Care Teams Acid Conditioner Relationship Specialty Start Date End Date Caitlyn Bowie MD 3400 [facility] 1 [place] [address] PCP - General Internal Medicine 05/06/21 Henry Kelly MD Pulmonary Department 175 [facility], [address] [place] [address] Physician Pulmonary Disease 09/06/17 06/22/20 documented as of this encounter
--- OUTSIDE RECORDS SUMMARY | 2025-03-12 16:29 | XMS_ITS | Encounter Summary ---
Author Organization [facility] and [facility] Address [address] [place] [address] Care Team Providers Care Wireless Store Manager Name Role Phone Caitlyn Bowie MD Primary Care Provider +1- [phone] Encounter Details Date Type Department Care Team (Late st Contact Info) Description 02/02/2018 Scanned Document [facility] Health Information Management [address] [place] [address] External, Provider Social History Tobacco Use Types [...] [facility] Center at [facility] 240 [facility] Building [address] [place], [place] [id number] Ronald Mills MD 240 [facility] A1 [place] [address] documented as of this encounter Visit Diagnoses Not on filedocumented in this encounter Additional Health Concerns Infection Onset Date Last Indicated Resolved Time COVID-19 03/05/2022 03/05/2022 03/15/2022 7:18 PM EDT documented as of this encounter Care Teams Wireless Store Manager Relationship Specialty Start Date End Date Caitlyn Bowie MD 3400 [facility] 1 [place] [address] PCP - General Internal Medicine 05/06/21 Henry Kelly MD Pulmonary Department 175 [facility], [address] [place] [address] Physician Pulmonary Disease 09/06/17 06/22/20 documented as of this encounter
--- OUTSIDE RECORDS SUMMARY | 2025-03-12 16:29 | XMS_ITS | Encounter Summary ---
Author Organization [facility] and [facility] Address [address] [place] [address] Care Team Providers Care Organizational Development Consultant Name Role Phone Caitlyn Bowie MD Primary Care Provider +1- [phone] Encounter Details Date Type Department Care Team (Late st Contact Info) Description 10/08/2021 Scanned Document INTERFACE DEFAULT [address] [place] [address] System, Provider Not In Social History Tobacco [...] [facility] Building [address] [place], [place] [address] Ronald Mills MD [address] [place] [address] [address] [place] [address] documented as of this encounter [...] documented as of this encounter Care Teams Organizational Development Consultant Relationship Specialty Start Date End Date Caitlyn Bowie MD [address] [address] PCP - General Internal Medicine 05/06/21 documented as of this encounter
--- OUTSIDE RECORDS SUMMARY | 2025-03-12 16:29 | XMS_ITS | Encounter Summary ---
Author Organization [facility] and [facility] Address [address] [place] [address] Care Team Providers Care Medical Research Assistant Name Role Phone Caitlyn Bowie MD Primary Care Provider +1- [phone] Encounter Details Date Type Department Care Team (Late st Contact Info) Description 01/28/2018 Scanned Document [facility] Health Information Management [address] [place] [address] External, Provider Social History Tobacco Use Types [...] [facility] 240 [facility] Building [address] [place], [place] [id number] Ronald Mlils MD 240 [facility] A1 [place] [address] documented as of this encounter Visit Diagnoses Not on filedocumented in this encounter Additional Health Concerns Infection Onset Date Last Indicated Resolved Time COVID-19 03/05/2022 03/05/2022 03/15/2022 7:18 PM EDT documented as of this encounter Care Teams Medical Research Assistant Relationship Specialty Start Date End Date Caitlyn Bowie MD 3400 [facility] 1 [place] [address] PCP - General Internal Medicine 05/06/21 Henry Kelly MD Pulmonary Department 175 [facility], [address] [place] [address] Physician Pulmonary Disease 09/06/17 06/22/20 documented as of this encounter
--- OUTSIDE RECORDS SUMMARY | 2025-03-12 16:29 | XMS_ITS | Encounter Summary ---
Author Organization [facility] and [facility] Address [address] [place] [address] Care Team Providers Care Chancellor Name Role Phone Caitlyn Bowie MD Primary Care Provider +1- [phone] Encounter Details Date Type Department Care Team (Late Contact Info) Description 02/02/2021 Scanned Document [facility] Health Information Management [address] [place] [address] External, Provider Social History Tobacco Use Types [...] [facility] 240 [facility] Building [address] [place], [place] [address] Ronald Mills MD [address] [place] [address] [address] [place] [address] documented as of this encounter Visit Diagnoses Not on filedocumented in this encounter Additional Health Concerns Infection Onset Date Last Indicated Resolved Time COVID-19 03/05/2022 03/05/2022 03/15/2022 7:18 PM EDT Assessment Noted Time PHQ-9 Depression Total Score: 2 11/07/19 19 2:06 PM EDT documented as of this encounter Care Teams Chancellor Relationship Specialty Start Date End Date Caitlyn Bowie MD [address] [address] PCP - General Internal Medicine 05/06/21 documented as of this encounter
--- OUTSIDE RECORDS SUMMARY | 2025-03-12 16:29 | XMS_ITS | Encounter Summary ---
Author Organization [facility] Address [address] [place] [address] Care Team Providers Care Automotive Parts Interpreter Name Role Phone Caitlyn Bowie MD Primary Care Provider +1- [phone] Encounter Details Date Type Department Care Team (Late st Contact Info) Description 05/14/2015 Scanned Document [facility] Health Information Management [address] [place] [address] External, Provider Social History Tobacco Use Types [...] [facility] at [facility] 240 [facility] Building [address] [place], [place] [id number] Ronald Mills MD 240 [facility] [address] [place] [address] documented as of this encounter Visit Diagnoses Not on filedocumented in this encounter Additional Health Concerns Infection Onset Date Last Indicated Resolved Time COVID-19 03/05/2022 03/05/2022 03/15/2022 7:18 PM EDT documented as of this encounter Care Teams Automotive Parts Interpreter Relationship Specialty Start Date End Date Caitlyn Bowie MD 3400 [facility] 1 [place] [address] PCP - General Internal Medicine 05/06/21 Henry Kelly MD Pulmonary Department 175 [facility], [address] [place] [address] Physician Pulmonary Disease 09/06/17 06/22/20 documented as of this encounter
--- OUTSIDE RECORDS SUMMARY | 2025-03-12 16:29 | XMS_ITS | Encounter Summary ---
Author Organization [facility] and [facility] Address [address] [place] [address] Care Team Providers Care Ict Business Analyst Name Role Phone Caitlyn Bowie MD Primary Care Provider +1- [phone] Encounter Details Date Type Department Care Team (Late st Contact Info) Description 05/01/2015 Scanned Document [facility] Health Information Management [address] [place] [address] External, Provider Social History Tobacco Use Types [...] [facility] 240 [facility] Building [address] [place], [place] [address] Ronald Mills MD 240 [facility] Max [address] [place] [address] documented as of this encounter [...] documented as of this encounter Care Teams Ict Business Analyst Relationship Specialty Start Date End Date Caitlyn Bowie MD 3400 [facility] Max 1 [place] [address] PCP - General Internal Medicine 05/06/21 Henry Kelly MD Pulmonary Department 175 [facility], [address] [place] [address] Physician Pulmonary Disease 09/06/17 06/22/20 documented as of this encounter
--- OUTSIDE RECORDS SUMMARY | 2025-03-12 16:29 | XMS_ITS | Encounter Summary ---
Author Organization [facility] and [facility] Address [address] [place] [address] Care Team Providers Care Remote Operations Producer Name Role Phone Caitlyn Bowie MD Primary Care Provider +1- [phone] Encounter Details Date Type Department Care Team (Late Contact Info) Description 10/29/2021 Scanned Document [facility] Health Information Management [address] [place] [address] External, Provider Social History Tobacco Use Types [...] [facility] 240 [facility] Building [address] [place], [place] [address] Ronald Mills MD [address] [place] [address] [address] [place] [address] documented as of this encounter [...] as of this encounter Care Teams Remote Operations Producer Relationship Specialty Start Date End Date Caitlyn Bowie MD [address] [address] PCP - General Internal Medicine 05/06/21 documented as of this encounter
--- OUTSIDE RECORDS SUMMARY | 2025-03-12 16:29 | XMS_ITS | Encounter Summary ---
Author Organization [facility] and [facility] Address [address] [place] [address] Care Team Providers Care Florist Name Role Phone Caitlyn Bowie MD Primary Care Provider +1- [phone] Encounter Details Date Type Department Care Team (Late st Contact Info) Description 02/07/2021 Scanned Document INTERFACE DEFAULT [address] [place] [address] System, Provider Not In Social History Tobacco [...] [facility] 240 [facility] Building [address] [place], [place] [address] Ronald Mills MD [address] [place] [address] [address] [place] [address] documented as of this encounter [...] documented as of this encounter Care Teams Florist Relationship Specialty Start Date End Date Caitlyn Bowie MD [address] [address] PCP - General Internal Medicine 05/06/21 documented as of this encounter
--- OUTSIDE RECORDS SUMMARY | 2025-03-12 16:29 | XMS_ITS | Encounter Summary ---
Author Organization [facility] Address [address] [place] [address] Care Team Providers Care Time Checker Name Role Phone Caitlyn Bowie MD Primary Care Provider +1- [phone] Encounter Details Date Type Department Care Team (Late st Contact Info) Description 04/16/2018 Scanned Document [facility] Health Information Management [address] [place] [address] External, Provider Social History Tobacco Use Types [...] [facility] 240 [facility] Building [address] [place], [place] [phone] Ronald Mills MD 240 [facility] A1 [place] [address] documented as of this encounter Visit Diagnoses Not on filedocumented in this encounter Additional Health Concerns Infection Onset Date Last Indicated Resolved Time COVID-19 03/05/2022 03/05/2022 03/15/2022 7:18 PM EDT documented as of this encounter Care Teams Time Checker Relationship Specialty Start Date End Date Caitlyn Bowie MD 3400 [facility] 1 [place] [address] PCP - General Internal Medicine 05/06/21 Henry Kelly MD Pulmonary Department 175 [facility], [address] [place] [address] Physician Pulmonary Disease 09/06/17 06/22/20 documented as of this encounter
--- OUTSIDE RECORDS SUMMARY | 2025-03-12 16:29 | XMS_ITS | Encounter Summary ---
Author Organization [facility] and [facility] Address [address] [place] [address] Care Team Providers Care Filter Tender Name Role Phone Caitlyn Bowie MD Primary Care Provider +1- [phone] Encounter Details Date Type Department Care Team (Late Contact Info) Description 02/03/2021 Scanned Document [facility] Health Information Management [address] [place] [address] External, Provider Social History Tobacco Use Types [...] [facility] 240 [facility] Building [address] [place], [place] [phone] Ronald Mills MD [address] [place] [address] [address]1 [place] [address] documented as of this encounter [...] documented as of this encounter Care Teams Filter Tender Relationship Specialty Start Date End Date Caitlyn Bowie MD [address] [address] PCP - General Internal Medicine 05/06/21 documented as of this encounter
--- OUTSIDE RECORDS SUMMARY | 2025-03-12 16:29 | XMS_ITS | Encounter Summary ---
Author Organization [facility] and [facility] Address [address] [place] [address] Care Team Providers Care Commercial Estimator Name Role Phone Caitlyn Bowie MD Primary Care Provider +1- [phone] Encounter Details Date Type Department Care Team (Late st Contact Info) Description 01/13/2021 Scanned Document Cancer Center at [address] [address] External, Provider Social History Tobacco Use Types [...] [facility] at [facility] 240 [facility] Building [address] [place], [place] [address] Ronald Mills MD [address] [place] [address] [address]1 [place] [address] documented as of this encounter [...] as of this encounter Care Teams Commercial Estimator Relationship Specialty Start Date End Date Caitlyn Bowie MD [address] [address] PCP - General Internal Medicine 05/06/21 documented as of this encounter
--- OUTSIDE RECORDS SUMMARY | 2025-03-12 16:29 | XMS_ITS | Encounter Summary ---
Author Organization [facility] Address [address] [place] [address] Care Team Providers Care Manager Of Merchandising Name Role Phone Caitlyn Bowie MD Primary Care Provider +1- [phone] Encounter Details Date Type Department Care Team (Late st Contact Info) Description 02/01/2018 Scanned Document [facility] Health Information Management [address] [place] [address] External, Provider Social History Tobacco Use Types [...] [facility] 240 [facility] Building [address] [place], [place] [address] Ronald Mills MD [address] [place] [address] [address]1 [place] [address] documented as of this encounter [...] of this encounter Care Teams Manager Of Merchandising Relationship Specialty Start Date End Date Caitlyn Bowie MD 3400 [facility] 1 [place] [address] PCP - General Internal Medicine 05/06/21 Henry Kelly MD Pulmonary Department 175 [facility], [address] [place] [address] Physician Pulmonary Disease 09/06/17 06/22/20 documented as of this encounter
--- OUTSIDE RECORDS SUMMARY | 2025-03-12 16:29 | XMS_ITS | Encounter Summary ---
Author Organization [facility] Address [address] [place] [address] Care Team Providers Care Manager Shop Name Role Phone Caitlyn Bowie MD Primary Care Provider +1- [phone] Reason for Visit * Reason Onset Date Comments Medical Complaint 03/11/2025 Encounter Details Date Type Department Care Team ([facility] st Contact Info) Description 03/11/2025 Telephone [facility] Neurology Ophthalmology [address] [address] Yary Whitten DO [address] [place] [address] Medical Complaint Social History Tobacco Use Types Packs/Day Years [...] encounter Miscellaneous Notes * Telephone Encounter - Mariana Vincent LPN - 03/12/2025 2:15 PM EDT Left vmail message for patient to call office. * Telephone Encounter - Yary Whitten DO - 03/12/2025 1:46 PM EDT It appears she is having multiple symptoms that would not be related to her small 9 mm lesion. It is not clear if this is a vascular malformation or schwannoma. If she is not feeling well and is having imbalance, fatigue and eye pain, etc, then she should go to the ED for evaluation. Dr Whitten documented in this encounter Plan of Treatment Not on file documented as of this encounter Visit Diagnoses Not on filedocumented in this encounter Care Teams Manager Shop Relationship Specialty Start Date End Date Caitlyn Bowie MD 3400 [place] [address] PCP - General Internal Medicine 03/20/23 documented as of this encounter
--- OUTSIDE RECORDS SUMMARY | 2025-03-12 16:29 | XMS_ITS | Encounter Summary ---
Author Organization [facility] and [facility] Address [address] [place] [address] Care Team Providers Care Customer Support Agent Name Role Phone Caitlyn Bowie MD Primary Care Provider +1- [phone] Encounter Details Date Type Department Care Team (Late st Contact Info) Description 10/16/2013 Scanned Document [facility] [address] [place] [address], 2nd floor [facility], [address] [place], [place] [address] Suzy Kong MD [address] [place] [address] Social History Tobacco Use Types Packs/Day [...] PM EDT Telemedicine Cancer Center at [address] [place] [address] Ronald Mills MD 240 [facility] A1 [place] [address] documented as of this encounter Visit Diagnoses Not on filedocumented in this encounter Additional Health Concerns Infection Onset Date Last Indicated Resolved Time COVID-19 03/05/2022 03/05/2022 03/15/2022 7:18 PM EDT documented as of this encounter Care Teams Customer Support Agent Relationship Specialty Start Date End Date Caitlyn Bowie MD 3400 [facility] Max 1 [place] [address] PCP - General Internal Medicine 05/06/21 Henry Kelly MD Pulmonary Department 175 [facility], [address] [place] [address] Physician Pulmonary Disease 09/06/17 06/22/20 documented as of this encounter
--- OUTSIDE RECORDS SUMMARY | 2025-03-12 16:29 | XMS_ITS | Encounter Summary ---
Author Organization [facility] and [facility] Address [address] [place] [address] Care Team Providers Care Clin Nurse Spec Name Role Phone Caitlyn Bowie MD Primary Care Provider +1- [phone] Encounter Details Date Type Department Care Team (Late st Contact Info) Description 04/28/2015 Scanned Document [facility] Health Information Management [address] [place] [address] External, Provider Social History Tobacco Use Types [...] [facility] 240 [facility] [address] [place], [place] [id number] Ronald Mills MD 240 [facility] [address] [place] [address] documented as of this encounter Procedures Procedure Name Priority Date/Time Associated Diagnosis Comments LAB SCAN Routine 04/28/2015 documented in this encounter Results * Lab Scan (04/28/2015) Blood specimen (specimen) us Provider External LAB BLOOD ORDERABLES Edited Re sult - Final [facility] documented in this encounter Visit Diagnoses Not on filedocumented in this encounter Additional Health Concerns Infection Onset Date Last Indicated Resolved Time COVID-19 03/05/2022 03/05/2022 03/15/2022 7:18 PM EDT documented as of this encounter Care Teams Clin Nurse Spec Relationship Specialty Start Date End Date Caitlyn Bowie MD 3400 [facility] 1 [place] [address] PCP - General Internal Medicine 05/06/21 Henry Kelly MD Pulmonary Department 175 [facility], [address] [place] [address] Physician Pulmonary Disease 09/06/17 06/22/20 documented as of this encounter
--- OUTSIDE RECORDS SUMMARY | 2025-03-12 16:29 | XMS_ITS | Encounter Summary ---
Author Organization [facility] and [facility] Address [address] [place] [address] Care Team Providers Care Web Site Administrator Name Role Phone Caitlyn Bowie MD Primary Care Provider +1- [phone] Encounter Details Date Type Department Care Team (Late st Contact Info) Description 03/13/2015 Scanned Document [facility] Health Information Management [address] [place] [address] External, Provider Social History Tobacco Use Types [...] [facility] 240 [facility] Building [address] [place], [place] [phone] Ronald Mills MD 240 [facility] [address] [place] [address] documented as of this encounter Procedures Procedure Name Priority Date/Time Associated Diagnosis Comments LAB SCAN Routine 02/16/2015 LAB SCAN Routine 02/16/2015 documented in this encounter Results * Lab Scan (02/16/2015) Blood specimen (specimen) us Provider External LAB BLOOD ORDERABLES Final Res ult Performing Organization Address [facility]/ZIP Co de Phone Number [facility] * Lab Scan (02/16/2015) Blood specimen (specimen) Provider External LAB BLOOD ORDERABLES Final Res ult Performing Organization Address [facility] Co de Phone Number [facility] documented in this encounter Visit Diagnoses Not on filedocumented in this encounter Additional Health Concerns Infection Onset Date Last Indicated Resolved Time COVID-19 03/05/2022 03/05/2022 03/15/2022 7:18 PM EDT documented as of this encounter Care Teams Web Site Administrator Relationship Specialty Start Date End Date Caitlyn Bowie MD 3400 [facility] 1 [place] [address] PCP - General Internal Medicine 05/06/21 Henry Kelly MD Pulmonary Department 175 [facility], [address] [place] [address] Physician Pulmonary Disease 09/06/17 06/22/20 documented as of this encounter
--- OUTSIDE RECORDS SUMMARY | 2025-03-12 16:29 | XMS_ITS | Encounter Summary ---
Author Organization [facility] and [facility] Address [address] [place] [address] Care Team Providers Care Manager Consumer Insights Name Role Phone Caitlyn Bowie MD Primary Care Provider +1- [phone] Encounter Details Date Type Department Care Team (Late st Contact Info) Description 03/11/2015 Scanned Document [facility] Health Information Management [address] [place] [address] External, Provider Social History Tobacco Use Types [...] [facility] Building [address] [place], [place] [phone] Ronald Mills MD 240 [facility] [address] [place] [address] documented as of this encounter Procedures Procedure Name Priority Date/Time Associated Diagnosis Comments LAB SCAN Routine 03/11/2015 documented in this encounter Results * Lab Scan (03/11/2015) Blood specimen (specimen) us Provider External LAB BLOOD ORDERABLES Edited Re sult - Final [facility] documented in this encounter Visit Diagnoses Not on filedocumented in this encounter Additional Health Concerns Infection Onset Date Last Indicated Resolved Time COVID-19 03/05/2022 03/05/2022 03/15/2022 7:18 PM EDT documented as of this encounter Care Teams Manager Consumer Insights Relationship Specialty Start Date End Date Caitlyn Bowie MD 3400 [facility] 1 [place] [address] PCP - General Internal Medicine 05/06/21 Henry Kelly MD Pulmonary Department 175 [facility], [address] [place] [address] Physician Pulmonary Disease 09/06/17 06/22/20 documented as of this encounter
--- OUTSIDE RECORDS SUMMARY | 2025-03-12 16:29 | XMS_ITS | Encounter Summary ---
Author Organization [facility] and [facility] Address [address] [place] [address] Care Team Providers Care Preschool Education Director Name Role Phone Caitlyn Bowie MD Primary Care Provider +1- [phone] Encounter Details Date Type Department Care Team (Late st Contact Info) Description 01/27/2018 Scanned Document [facility] Health Information Management [address] [place] [address] External, Provider Social History Tobacco Use Types [...] [facility] 240 [facility] Building [address] [place], [place] [id number] Ronald Mills MD 240 [facility] A1 [place] [address] documented as of this encounter Visit Diagnoses Not on filedocumented in this encounter Additional Health Concerns Infection Onset Date Last Indicated Resolved Time COVID-19 03/05/2022 03/05/2022 03/15/2022 7:18 PM EDT documented as of this encounter Care Teams Preschool Education Director Relationship Specialty Start Date End Date Caitlyn Bowie MD 3400 [facility] 1 [place] [address] PCP - General Internal Medicine 05/06/21 Henry Kelly MD Pulmonary Department 175 [facility], [address] [place] [address] Physician Pulmonary Disease 09/06/17 06/22/20 documented as of this encounter
--- OUTSIDE RECORDS SUMMARY | 2025-03-12 16:29 | XMS_ITS | Clinical Summary ---
Author Organization [facility] Address [address] [place] [address] Care Team Providers Care Solution Make Up Operator Name Role Phone Caitlyn Bowie MD Primary Care Provider +1- [phone] Allergies Active Allergy Reactions Criticality Noted Date [...] Breath High 05/09/2008 Bronchospasm or Wheezing Ipratropium Sharon Unknown/Patient and Family Unable to Define Medium [...] 1 capsule by mouth daily. Active B Pmhonyb-E-Qchyg Acid (STRESS 500 B-COMPLEX PO) Take 1 [...] Encounters Date Type Department Care Team Description 03/11/2025 Telephone [facility] Neurology Ophthalmology [address] [phone] Yary Whitten DO Medical Complaint from Last 3 Months Family History Medical [...] Health Maintenance Due Date Last Done Comments Advance Care Planning 1943 DTaP/Tdap/Td Vaccines (1 - Tdap) 1962 Pneumococcal Vaccines 50+ (1 of 1 - PCV) 1993 Zoster (Shingles) Vaccine (1 of 2) 1993 DXA Bone Density (Females,Ages 65 and older) 2008 RSV Vaccine 60 years and older and Patients (1 - 1-dose 75+ series) 2018 Influenza Vaccine 02/07/2025 05/13/2022, , 05/15/2021, Additional history exists COVID-19 Vaccine (2024- season) 2025 09/03/2020, 08/06/2020 Hepatitis B Vaccines Aged Out No long er eligible based on patient's age to complete this topic Insurance MEDICARE PART A & B MEDICARE PART A & B [facility] Care Teams Solution Make Up Operator Relationship Specialty Start Date End Date Caitlyn Bowie MD [address]00 [place] [address] PCP - General Internal Medicine 03/20/23
--- OUTSIDE RECORDS SUMMARY | 2025-03-12 16:29 | XMS_ITS | Encounter Summary ---
Author Organization [facility] and [facility] Address [address] [place] [address] Care Team Providers Care Head Of Data Name Role Phone Caitlyn Bowie MD Primary Care Provider +1- [phone] Encounter Details Date Type Department Care Team (Late st Contact Info) Description 02/02/2021 Scanned Document INTERFACE DEFAULT [address] [place] [address] System, Provider Not In Social History Tobacco [...] at [facility] 240 [facility] Building [address] [place] [address] Ronald Mills MD [address] [place] [address] [address] [place] [address] documented as of this encounter [...] of this encounter Care Teams Head Of Data Relationship Specialty Start Date End Date Caitlyn Bowie MD [facility] [address] [address] PCP - General Internal Medicine 05/06/21 documented as of this encounter
--- OUTSIDE RECORDS SUMMARY | 2025-03-12 16:29 | XMS_ITS | Encounter Summary ---
Author Organization [facility] and [facility] Address [address] [place] [address] Care Team Providers Care Administrative Assistant Office Manager Name Role Phone Caitlyn Bowie MD Primary Care Provider +1- [phone] Encounter Details Date Type Department Care Team (Late st Contact Info) Description 01/26/2018 Scanned Document [facility] Health Information Management [address] [place] [address] External, Provider Social History Tobacco Use Types [...] [facility] 240 [facility] Building [address] [place], [place] [address] Ronald Mills MD 240 [facility] A1 [place] [address] documented as of this encounter [...] as of this encounter Care Teams Administrative Assistant Office Manager Relationship Specialty Start Date End Date Caitlyn Bowie MD 3400 [facility] 1 [place] [address] PCP - General Internal Medicine 05/06/21 Henry Kelly MD Pulmonary Department 175 [facility], [address] [place] [address] Physician Pulmonary Disease 09/06/17 06/22/20 documented as of this encounter
--- OUTSIDE RECORDS SUMMARY | 2025-03-12 16:29 | XMS_ITS | Encounter Summary ---
Author Organization [facility] and [facility] Address [address] [place] [phone] Care Team Providers Care Nursing Informatics Specialist Name Role Phone Caitlyn Bowie MD Primary Care Provider +1- [phone] Encounter Details Date Type Department Care Team (Late st Contact Info) Description 11/09/2014 Scanned Document [facility] Health Information Management [address] [place] [address] External, Provider Social History Tobacco Use Types [...] at [facility] 240 [facility] Building [address] [place], [place] [phone] Ronald Mills MD 240 [facility] A1 [place] [address] documented as of this encounter Visit Diagnoses Not on filedocumented in this encounter Additional Health Concerns Infection Onset Date Last Indicated Resolved Time COVID-19 03/05/2022 03/05/2022 03/15/2022 7:18 PM EDT documented as of this encounter Care Teams Nursing Informatics Specialist Relationship Specialty Start Date End Date Caitlyn Bowie MD 3400 [facility] 1 [place] [address] PCP - General Internal Medicine 05/06/21 Henry Kelly MD Pulmonary Department 175 [facility], [address] [place] [address] Physician Pulmonary Disease 09/06/17 06/22/20 documented as of this encounter
--- OUTSIDE RECORDS SUMMARY | 2025-03-12 16:29 | XMS_ITS | Encounter Summary ---
Author Organization [facility] and [facility] Address [address] [place] [address] Care Team Providers Care Archivist Political History Name Role Phone Caitlyn Bowie MD Primary Care Provider +1- [phone] Encounter Details Date Type Department Care Team ([facility] st Contact Info) Description 08/26/2014 Documentation [facility] [address] [place] [address] Shilpi Ibarra [address] [place] [address] Social History Tobacco Use Types Packs/Day Years [...] [facility] Progress Note This is a 69 y.o. female who was provided services by [facility]. Service Provided By:: Shilpi Ibarra Patient Status: return Length of Appointment: 60 minutes documented in this encounter Plan of Treatment Upcoming Encounters Date Type Department Care Team ([facility] st Contact Info) Description 04/25/2025 4:00 PM EDT [facility] 240 [facility] [address] [place] [address] Ronald Mills MD 240 [facility] [address] [place] [address] documented as of this encounter Visit Diagnoses Not on filedocumented in this encounter Additional Health Concerns Infection Onset Date Last Indicated Resolved Time COVID-19 03/05/2022 03/05/2022 03/15/2022 7:18 PM EDT documented as of this encounter Care Teams Archivist Political History Relationship Specialty Start Date End Date Caitlyn Bowie MD 3400 [facility] 1 [place] [address] PCP - General Internal Medicine 05/06/21 Henry Kelly MD Pulmonary Department 175 [facility], [address] [place] [address] Physician Pulmonary Disease 09/06/17 06/22/20 documented as of this encounter
--- OUTSIDE RECORDS SUMMARY | 2025-03-12 16:29 | XMS_ITS | Encounter Summary ---
Author Organization [facility] and [facility] Address [address] [place] [address] Care Team Providers Care Field Sampling Technician Name Role Phone Caitlyn Bowie MD Primary Care Provider +1- [phone] Encounter Details Date Type Department Care Team (Late st Contact Info) Description 12/21/2020 Scanned Document INTERFACE DEFAULT [address] [place] [address] System, Provider Not In Social History Tobacco [...] [facility] 240 [facility] Building [address] [place] [address] Ronald Mills MD [address] [place] [address] [address] [place] [address] documented as of this encounter Visit Diagnoses Not on filedocumented in this encounter Additional Health Concerns Infection Onset Date Last Indicated Resolved Time COVID-19 03/05/2022 03/05/2022 03/15/2022 7:18 PM EDT Assessment Noted Time PHQ-9 Depression Total Score: 2 11/07/19 19 2:06 PM EDT documented as of this encounter Care Teams Field Sampling Technician Relationship Specialty Start Date End Date Caitlyn Bowie MD [address] [address] PCP - General Internal Medicine 05/06/21 documented as of this encounter
--- OUTSIDE RECORDS SUMMARY | 2025-03-12 16:29 | XMS_ITS | Encounter Summary ---
Author Organization [facility] and [facility] Address [address] [place] [address] Care Team Providers Care Waxer Name Role Phone Caitlyn Bowie MD Primary Care Provider +1- [phone] Reason for Visit * Reason Comments Triage Encounter Details Date Type Department Care Team (Late st Contact Info) Description 10/18/2021 Telephone [facility] [address] [phone] Ronald Mills MD [address] [place] [address] Triage Social History Tobacco Use Types [...] [facility] 240 [facility] Building [address] [place], [place] [address] Ronald Mills MD 240 [facility] [address] [place] [phone] documented as of this encounter Visit Diagnoses Not on filedocumented in this encounter Additional Health Concerns Infection Onset Date Last Indicated Resolved Time COVID-19 03/05/2022 03/05/2022 03/15/2022 7:18 PM EDT Assessment Noted Time PHQ-9 Depression Total Score: 2 11/07/19 19 2:06 PM EDT documented as of this encounter Care Teams Waxer Relationship Specialty Start Date End Date Caitlyn Bowie MD [address] [address] PCP - General Internal Medicine 05/06/21 documented as of this encounter
--- OUTSIDE RECORDS SUMMARY | 2025-03-12 16:29 | XMS_ITS | Encounter Summary ---
Author Organization [facility] and [facility] Address [address] [place] [address] Care Team Providers Care Tape Recorder Repairer Name Role Phone Caitlyn Bowie MD Primary Care Provider +1- [phone] Encounter Details Date Type Department Care Team (Late st Contact Info) Description 01/26/2018 Scanned Document [facility] Health Information Management [address] [place] [address] External, Provider Social History Tobacco Use Types [...] [facility] Building [address] [place] [address] Ronald Mills MD [address] [place] [address] [address] [place] [address] documented as of this encounter [...] documented as of this encounter Care Teams Tape Recorder Repairer Relationship Specialty Start Date End Date Caitlyn Bowie MD 3400 [facility] 1 [place] [address] PCP - General Internal Medicine 05/06/21 Henry Kelly MD Pulmonary Department [address] [place] [address], [address] [place] [address] Physician Pulmonary Disease 09/06/17 06/22/20 documented as of this encounter
--- OUTSIDE RECORDS SUMMARY | 2025-03-12 16:29 | XMS_ITS | Encounter Summary ---
Author Organization [facility] Address [address] [place] [address] Care Team Providers Care Custom Studio Coordinator Name Role Phone Caitlyn Bowie MD Primary Care Provider +1- [phone] Encounter Details Date Type Department Care Team (Late st Contact Info) Description 01/30/2018 Scanned Document [facility] Health Information Management [address] [place] [address] External, Provider Social History Tobacco Use Types [...] at [facility] 240 [facility] Building [address] [place] [address] Ronald Mills MD [address] [place] [address] [address] [place] [address] documented as of this encounter [...] as of this encounter Care Teams Custom Studio Coordinator Relationship Specialty Start Date End Date Caitlyn Bowie MD [facility] 1 [place] [address] PCP - General Internal Medicine 05/06/21 Henry Kelly MD Pulmonary Department 175 [facility], [address] [place] [address] Physician Pulmonary Disease 09/06/17 06/22/20 documented as of this encounter
--- OUTSIDE RECORDS SUMMARY | 2025-03-12 16:29 | XMS_ITS | Encounter Summary ---
Author Organization [facility] and [facility] Address [address] [place] [phone] Care Team Providers Care Gold Cutter Name Role Phone Caitlyn Bowie MD Primary Care Provider +1- [phone] Encounter Details Date Type Department Care Team (Late st Contact Info) Description 01/27/2018 Scanned Document [facility] Health Information Management [address] [place] [address] External, Provider Social History Tobacco Use Types [...] [facility] 240 [facility] Building [address] [place] [address] Ronald Mills MD 240 [facility] A1 [place] [address] documented as of this encounter [...] as of this encounter Care Teams Gold Cutter Relationship Specialty Start Date End Date Caitlyn Bowie MD 3400 [facility] 1 [place] [address] PCP - General Internal Medicine 05/06/21 Henry Kelly MD Pulmonary Department 175 [facility], [address] [place] [address] Physician Pulmonary Disease 09/06/17 06/22/20 documented as of this encounter
--- OUTSIDE RECORDS SUMMARY | 2025-03-12 16:29 | XMS_ITS | Encounter Summary ---
Author Organization [facility] and [facility] Address [address] [place] [address] Care Team Providers Care Bootmaker Name Role Phone Caitlyn Bowie MD Primary Care Provider +1- [phone] Encounter Details Date Type Department Care Team (Late st Contact Info) Description 01/28/2018 Scanned Document [facility] Health Information Management [address] [place] [address] External, Provider Social History Tobacco Use Types [...] at [facility] 240 [facility] Building [address] [place], [place] [phone] Ronald Mills MD [address] [place] [address] [address] [place] [address] documented as of this encounter [...] documented as of this encounter Care Teams Bootmaker Relationship Specialty Start Date End Date Caitlyn Bowie MD [facility]0 [facility] 1 [place] [address] PCP - General Internal Medicine 05/06/21 Henry Kelly MD Pulmonary Department 175 [facility], [address] [place] [address] Physician Pulmonary Disease 09/06/17 06/22/20 documented as of this encounter
--- OUTSIDE RECORDS SUMMARY | 2025-03-12 16:29 | XMS_ITS | Encounter Summary ---
Author Organization [facility] and [facility] Address [address] [place] [address] Care Team Providers Care Spindraw Operator Name Role Phone Caitlyn Bowie MD Primary Care Provider +1- [phone] Encounter Details Date Type Department Care Team (Late st Contact Info) Description 02/03/2021 Scanned Document INTERFACE DEFAULT [address] [place] [address] System, Provider Not In Social History Tobacco [...] [facility] 240 [facility] Building [address] [place], [place] [phone] Ronald Mills MD [address] [place] [address] [address] [place] [address] documented as [...] documented as of this encounter Care Teams Spindraw Operator Relationship Specialty Start Date End Date Caitlyn Bowie MD [address] [address] PCP - General Internal Medicine 05/06/21 documented as of this encounter
--- OUTSIDE RECORDS SUMMARY | 2025-03-12 16:29 | XMS_ITS | Encounter Summary ---
Author Organization [facility] and [facility] Address [address] [place] [address] Care Team Providers Care Canvas Baster Name Role Phone Caitlyn Bowie MD Primary Care Provider +1- [phone] Encounter Details Date Type Department Care Team (Late st Contact Info) Description 11/19/2021 Scanned Document Cardiovascular Medicine at [address] [place] [address] Norma Renee MD [address] [place] [phone] Social History Tobacco Use Types Packs/Day [...] PM EDT Telemedicine Cancer Center at [address] [place] [address] Ronald Mills MD 240 [facility] A1 [place] [address] documented as of this encounter Visit Diagnoses Not on filedocumented in this encounter Additional Health Concerns Infection Onset Date Last Indicated Resolved Time COVID-19 03/05/2022 03/05/2022 03/15/2022 7:18 PM EDT Assessment Noted Time PHQ-9 Depression Total Score: 2 11/07/19 19 2:06 PM EDT documented as of this encounter Care Teams Canvas Baster Relationship Specialty Start Date End Date Caitlyn Bowie MD [address] [address] PCP - General Internal Medicine 05/06/21 documented as of this encounter
--- OUTSIDE RECORDS SUMMARY | 2025-03-12 16:29 | XMS_ITS | Encounter Summary ---
Author Organization [facility] and [facility] Address [address] [place] [address] Care Team Providers Care Ski Patrol Director Name Role Phone Caitlyn Bowie MD Primary Care Provider +1- [phone] Encounter Details Date Type Department Care Team (Late st Contact Info) Description 02/19/2015 Scanned Document [facility] Health Information Management [address] [place] [address] External, Provider Social History Tobacco Use Types [...] Cancer Center at [facility] 240 [facility] Building [address] [place], [place] [phone] Ronald Mills MD 240 [facility] Max [address] [place] [address] documented as of this encounter Procedures Procedure Name Priority Date/Time Associated Diagnosis Comments LAB SCAN Routine 02/19/2015 documented in this encounter Results * Lab Scan (02/19/2015) Blood specimen (specimen) us Provider External LAB BLOOD ORDERABLES Final Res ult [facility] documented in this encounter Visit Diagnoses Not on filedocumented in this encounter Additional Health Concerns Infection Onset Date Last Indicated Resolved Time COVID-19 03/05/2022 03/05/2022 03/15/2022 7:18 PM EDT documented as of this encounter Care Teams Ski Patrol Director Relationship Specialty Start Date End Date Caitlyn Bowie MD 3400 [facility] 1 [place] [address] PCP - General Internal Medicine 05/06/21 Henry Kelly MD Pulmonary Department 175 [facility], [address] [place] [address] Physician Pulmonary Disease 09/06/17 06/22/20 documented as of this encounter
--- OUTSIDE RECORDS SUMMARY | 2025-03-12 16:29 | XMS_ITS | Encounter Summary ---
Author Organization [facility] and [facility] Address [address] [place] [address] Care Team Providers Care Assessment Services Manager Name Role Phone Caitlyn Bowie MD Primary Care Provider +1- [phone] Encounter Details Date Type Department Care Team (Late st Contact Info) Description 04/18/2018 Scanned Document [facility] Health Information Management [address] [place] [address] External, Provider Social History Tobacco Use Types [...] [facility] Building [address] [place], [place] [phone] Ronald Mills MD 240 [facility] A1 [place] [address] documented as of this encounter [...] as of this encounter Care Teams Assessment Services Manager Relationship Specialty Start Date End Date Caitlyn Bowie MD 3400 [facility] 1 [place] [address] PCP - General Internal Medicine 05/06/21 Henry Kelly MD Pulmonary Department 175 [facility], [address] [place] [address] Physician Pulmonary Disease 09/06/17 06/22/20 documented as of this encounter
--- OUTSIDE RECORDS SUMMARY | 2025-03-12 16:29 | XMS_ITS | Encounter Summary ---
Author Organization [facility] and [facility] Address [address] [place] [address] Care Team Providers Care Cell Stripper Final Name Role Phone Caitlyn Bowie MD Primary Care Provider +1- [phone] Encounter Details Date Type Department Care Team (Late st Contact Info) Description 02/08/2021 Scanned Document INTERFACE DEFAULT [address] [place] [address] System, Provider Not In Social History Tobacco [...] at [facility] 240 [facility] [address] [place] [address] Ronald Mills MD [address] [place] [address] [address]1 [place] [address] documented as of this encounter Visit Diagnoses Not on filedocumented in this encounter Additional Health Concerns Infection Onset Date Last Indicated Resolved Time COVID-19 03/05/2022 03/05/2022 03/15/2022 7:18 PM EDT Assessment Noted Time PHQ-9 Depression Total Score: 2 11/07/19 19 2:06 PM EDT documented as of this encounter Care Teams Cell Stripper Final Relationship Specialty Start Date End Date Caitlyn Bowie MD [address] [address] PCP - General Internal Medicine 05/06/21 documented as of this encounter
--- OUTSIDE RECORDS SUMMARY | 2025-03-12 16:29 | XMS_ITS | Encounter Summary ---
Author Organization [facility] and [facility] Address [address] [place] [address] Care Team Providers Care Ripening Room Operator Name Role Phone Caitlyn Bowie MD Primary Care Provider +1- [phone] Encounter Details Date Type Department Care Team (Late st Contact Info) Description 01/26/2018 Scanned Document [facility] Health Information Management [address] [place] [address] External, Provider Social History Tobacco Use Types [...] 240 [facility] Building [address] [place] [address] Ronald Mills MD 240 [facility] [address]1 [place] [address] documented as of this encounter [...] documented as of this encounter Care Teams Ripening Room Operator Relationship Specialty Start Date End Date Caitlyn Bowie MD 3400 [facility] 1 [place] [address] PCP - General Internal Medicine 05/06/21 Henry Kelly MD Pulmonary Department 175 [facility], [address] [place] [address] Physician Pulmonary Disease 09/06/17 06/22/20 documented as of this encounter
--- OUTSIDE RECORDS SUMMARY | 2025-03-12 16:29 | XMS_ITS | Encounter Summary ---
Author Organization [facility] and [facility] Address [address] [place] [address] Care Team Providers Care Customer Service Manager Name Role Phone Caitlyn Bowie MD Primary Care Provider +1- [phone] Encounter Details Date Type Department Care Team (Late st Contact Info) Description 07/31/2015 Scanned Document [facility] Health Information Management [address] [place] [address] External, Provider Social History Tobacco Use Types [...] [facility] Building [address] [place], [place] [address] Ronald Mills MD 240 [facility] Max [address] [place] [address] documented as of this encounter Procedures Procedure Name Priority Date/Time Associated Diagnosis Comments NUC MED/PET RESULT SCAN Routine 07/31/2015 documented in this encounter Results * Nuc Med/PET Result Scan (07/31/2015) us Provider External IMG SCAN REPORTS Edited Result - Final [facility] [place], [place], [facility] documented in this encounter Visit Diagnoses Not on filedocumented in this encounter Additional Health Concerns Infection Onset Date Last Indicated Resolved Time COVID-19 03/05/2022 03/05/2022 03/15/2022 7:1 8 PM EDT documented as of this encounter Care Teams Customer Service Manager Relationship Specialty Start Date End Date Caitlyn Bowie MD 3400 [facility] 1 [place] [address] PCP - General Internal Medicine 05/06/21 Henry Kelly MD Pulmonary Department 175 [facility], [address] [place] [address] Physician Pulmonary Disease 09/06/17 06/22/20 documented as of this encounter
--- OUTSIDE RECORDS SUMMARY | 2025-03-12 16:30 | XMS_ITS | Encounter Summary ---
Author Organization [facility] and [facility] Address [address] [place] [address] Care Team Providers Care Auto Parker Name Role Phone Caitlyn Bowie MD Primary Care Provider +1- [phone] Encounter Details Date Type Department Care Team (Late st Contact Info) Description 04/24/2021 Scanned Document INTERFACE DEFAULT [address] [place] [address] System, Provider Not In Social History Tobacco [...] [facility] 240 [facility] Building [address] [place], [place] [address] Ronald Mills MD [address] [place] [address] [address] [place] [address] documented as of this encounter [...] as of this encounter Care Teams Auto Parker Relationship Specialty Start Date End Date Caitlyn Bowie MD [address] [address] PCP - General Internal Medicine 05/06/21 documented as of this encounter
--- OUTSIDE RECORDS SUMMARY | 2025-03-12 16:30 | XMS_ITS | Encounter Summary ---
Author Organization [facility] and [facility] Address [address] [place] [address] Care Team Providers Care Assembler Caterpillar Spider Name Role Phone Caitlyn Bowie MD Primary Care Provider +1- [phone] Encounter Details Date Type Department Care Team (Late st Contact Info) Description 01/02/2024 Scanned Document INTERFACE DEFAULT [address] [place] [address] System, Provider Not In Social History Tobacco [...] [facility] 240 [facility] Building [address] [place], [place] [address] Ronald Mills MD [address] [place] [address] [address] [place] [address] documented as of this encounter [...] as of this encounter Care Teams Assembler Caterpillar Spider Relationship Specialty Start Date End Date Caitlyn Bowie MD [address] [address] PCP - General Internal Medicine 05/06/21 documented as of this encounter
--- OUTSIDE RECORDS SUMMARY | 2025-03-12 16:30 | XMS_ITS | Encounter Summary ---
Author Organization [facility] and [facility] Address [address] [place] [address] Care Team Providers Care Research Development Manager Name Role Phone Caitlyn Bowie MD Primary Care Provider +1- [phone] Encounter Details Date Type Department Care Team (Late st Contact Info) Description 04/25/2021 Scanned Document INTERFACE DEFAULT [address] [place] [address] System, Provider Not In Social History Tobacco [...] Telemedicine Cancer Center at [facility] 240 [facility] Building [address] [place] [address] Ronald Mills MD [address] [place] [address] [address] [place] [address] documented as of this encounter Procedures Procedure Name Priority Date/Time Associated Diagnosis Comments CARDIAC MISC. RESULT SCAN 04/25/2021 12:00 AM EDT CARDIAC [...] of this encounter Care Teams Research Development Manager Relationship Specialty Start Date End Date Caitlyn Bowie MD [address] [address] PCP - General Internal Medicine 05/06/21 documented as of this encounter
--- OUTSIDE RECORDS SUMMARY | 2025-03-12 16:30 | XMS_ITS | Encounter Summary ---
Author Organization [facility] and [facility] Address [address] [place] [address] Care Team Providers Care Student Support Advisor Name Role Phone Caitlyn Boiwe MD Primary Care Provider +1- [phone] Encounter Details Date Type Department Care Team (Late st Contact Info) Description 06/24/2022 Scanned Document INTERFACE DEFAULT [address] [place] [address] System, Provider Not In Social History Tobacco [...] [facility] 240 [facility] Building [address] [place], [place] [id number] Ronald Mills MD [address] [place] [address] [address] [place] [address] documented as of this encounter [...] as of this encounter Care Teams Student Support Advisor Relationship Specialty Start Date End Date Caitlyn Bowie MD [address] [address] PCP - General Internal Medicine 05/06/21 documented as of this encounter
--- OUTSIDE RECORDS SUMMARY | 2025-03-12 16:30 | XMS_ITS | Encounter Summary ---
Author Organization [facility] and [facility] Address [address] [place] [address] Care Team Providers Care Camera Supervisor Name Role Phone Caitlyn Bowie MD Primary Care Provider +1- [phone] Encounter Details Date Type Department Care Team (Late st Contact Info) Description 07/30/2018 Scanned Document [facility] Health Information Management [address] [place] [address] External, Provider Social History Tobacco Use Types [...] Cancer Center at [facility] 240 [facility] Building [address] [place], [place] [address] Ronald Mills MD [address] [place] [address] [address]1 [place] [address] documented as of this encounter [...] documented as of this encounter Care Teams Camera Supervisor Relationship Specialty Start Date End Date Caitlyn Bowie MD [facility]0 [facility] 1 [place] [address] PCP - General Internal Medicine 05/06/21 Henry Kelly MD Pulmonary Department 175 [facility], [address] [place] [address] Physician Pulmonary Disease 09/06/17 06/22/20 documented as of this encounter
--- OUTSIDE RECORDS SUMMARY | 2025-03-12 16:30 | XMS_ITS | Encounter Summary ---
Author Organization [facility] and [facility] Address [address] [place] [address] Care Team Providers Care Bindery Leadperson Name Role Phone Caitlyn Bowie MD Primary Care Provider +1- [phone] Reason for Visit * Reason Comments Advice Only mass Encounter Details Date Type Department Care Team (Late st Contact Info) Description 09/06/2021 Telephone [facility] at [address] [address] Ronald Mills MD [address] [place] [address] Advice Only (mass) Social History Tobacco [...] Center at [facility] 240 [facility] Building [address] [place], [place] [address] Ronald Mills MD 240 [facility] Max [address]1 [place] [address] documented as of this encounter Visit Diagnoses Not on filedocumented in this encounter Additional Health Concerns Infection Onset Date Last Indicated Resolved Time COVID-19 03/05/2022 03/05/2022 03/15/2022 7:18 PM EDT Assessment Noted Time PHQ-9 Depression Total Score: 2 11/07/19 19 2:06 PM EDT documented as of this encounter Care Teams Bindery Leadperson Relationship Specialty Start Date End Date Caitlyn Bowie MD [address] [address] PCP - General Internal Medicine 05/06/21 documented as of this encounter
--- OUTSIDE RECORDS SUMMARY | 2025-03-12 16:30 | XMS_ITS | Encounter Summary ---
Author Organization [facility] and [facility] Address [address] [place] [address] Care Team Providers Care Correctional Therapy Director Name Role Phone Caitlyn Bowie MD Primary Care Provider +1- [phone] Encounter Details Date Type Department Care Team (Late st Contact Info) Description 06/07/2021 Scanned Document Onco-Oncology Program at [address] [place] [address] Norma Renee MD [address] [place] [address] 2 [place] [address] Social History Tobacco Use Types [...] 4:00 PM EDT Telemedicine Cancer Center at [address] [place], [place] [address] Ronald Mills MD 240 [facility] A1 [place] [address] documented as of this encounter Visit Diagnoses Not on filedocumented in this encounter Additional Health Concerns Infection Onset Date Last Indicated Resolved Time COVID-19 03/05/2022 03/05/2022 03/15/2022 7:18 PM EDT Assessment Noted Time PHQ-9 Depression Total Score: 2 11/07/19 19 2:06 PM EDT documented as of this encounter Care Teams Correctional Therapy Director Relationship Specialty Start Date End Date Caitlyn Bowie MD [address] [address] PCP - General Internal Medicine 05/06/21 documented as of this encounter
--- OUTSIDE RECORDS SUMMARY | 2025-03-12 16:30 | XMS_ITS | Encounter Summary ---
Author Organization [facility] and [facility] Address [address] [place] [address] Care Team Providers Care Manager Client Support Name Role Phone Caitlyn Bowie MD Primary Care Provider +1- [phone] Encounter Details Date Type Department Care Team (Late st Contact Info) Description 06/08/2021 Scanned Document INTERFACE DEFAULT [address] [place] [address] System, Provider Not In Social History Tobacco [...] [facility] 240 [facility] Building [address] [place], [place] [address] Ronald Mills MD [address] [place] [address] [address]1 [place] [address] documented as of this encounter [...] as of this encounter Care Teams Manager Client Support Relationship Specialty Start Date End Date Caitlyn Bowie MD [address] [place] [address] PCP - General Internal Medicine 05/06/21 documented as of this encounter
--- OUTSIDE RECORDS SUMMARY | 2025-03-12 16:30 | XMS_ITS | Encounter Summary ---
Author Organization [facility] and [facility] Address [address] [place] [address] Care Team Providers Care Program Advocate Name Role Phone Caitlyn Bowie MD Primary Care Provider +1- [phone] Encounter Details Date Type Department Care Team (Late st Contact Info) Description 07/06/2021 Scanned Document INTERFACE DEFAULT [address] [place] [address] System, Provider Not In Social History Tobacco [...] [facility] 240 [facility] Building [address] [place] [address] Ronald Mlils MD [address] [place] [address] [address]1 [place] [address] documented as of this encounter Visit Diagnoses Not on filedocumented in this encounter Additional Health Concerns Infection Onset Date Last Indicated Resolved Time COVID-19 03/05/2022 03/05/2022 03/15/2022 7:18 PM EDT Assessment Noted Time PHQ-9 Depression Total Score: 2 11/07/19 19 2:06 PM EDT documented as of this encounter Care Teams Program Advocate Relationship Specialty Start Date End Date Caitlyn Bowie MD [address] [address] PCP - General Internal Medicine 05/06/21 documented as of this encounter
--- OUTSIDE RECORDS SUMMARY | 2025-03-12 16:30 | XMS_ITS | Encounter Summary ---
Author Organization [facility] and [facility] Address [address] [place] [address] Care Team Providers Care Employment Case Manager Name Role Phone Catilyn Bowie MD Primary Care Provider +1- [phone] Encounter Details Date Type Department Care Team (Late st Contact Info) Description 09/24/2021 Scanned Document INTERFACE DEFAULT [address] [place] [address] System, Provider Not In Social History Tobacco [...] Telemedicine Cancer Center at [facility] 240 [facility] Building [address] [place] [address] Ronald Mills MD [address] [place] [address] [address] [place] [address] documented as of this encounter [...] as of this encounter Care Teams Employment Case Manager Relationship Specialty Start Date End Date Caitlyn Bowie MD [facility] [address] [address] PCP - General Internal Medicine 05/06/21 documented as of this encounter
--- OUTSIDE RECORDS SUMMARY | 2025-03-12 16:30 | XMS_ITS | Encounter Summary ---
Author Organization [facility] and [facility] Address [address] [place] [address] Care Team Providers Care Cleaning Machine Operator Name Role Phone Caitlyn Bowie MD Primary Care Provider +1- [phone] Encounter Details Date Type Department Care Team (Late st Contact Info) Description 07/28/2018 Scanned Document [facility] Health Information Management [address] [place] [address] External, Provider Social History Tobacco Use Types [...] [facility] Building [address] [place], [place] [address] Ronald Mills MD 240 [facility] A1 [place] [address] documented as of this encounter [...] as of this encounter Care Teams Cleaning Machine Operator Relationship Specialty Start Date End Date Caitlyn Bowie MD [facility]0 [facility] 1 [place] [address] PCP - General Internal Medicine 05/06/21 Henry Kelly MD Pulmonary Department 175 [facility], [address] [place] [address] Physician Pulmonary Disease 09/06/17 06/22/20 documented as of this encounter
--- OUTSIDE RECORDS SUMMARY | 2025-03-12 16:30 | XMS_ITS | Encounter Summary ---
Author Organization [facility] and [facility] Address [address] [place] [address] Care Team Providers Care Auto Striper Name Role Phone Caitlyn Bowie MD Primary Care Provider +1- [phone] Encounter Details Date Type Department Care Team (Late st Contact Info) Description 09/01/2023 Scanned Document INTERFACE DEFAULT [address] [place] [address] System, Provider Not In Social History Tobacco [...] [facility] at [facility] 240 [facility] Building [address] [place] [address] Ronald Mills MD [address] [place] [address] [address] [place] [address] documented as of this encounter Visit Diagnoses Not on filedocumented in this encounter Additional Health Concerns Assessment Noted Time PHQ-9 Depression Total Score: 2 11/07/19 19 2:06 PM EDT documented as of this encounter Care Teams Auto Striper Relationship Specialty Start Date End Date Catilyn Bowie MD [address] [address] PCP - General Internal Medicine 05/06/21 documented as of this encounter
--- OUTSIDE RECORDS SUMMARY | 2025-03-12 16:30 | XMS_ITS | Encounter Summary ---
Author Organization [facility] and [facility] Address [address] [place] [address] Care Team Providers Care 1St Grade Teacher Name Role Phone Caitlyn Bowie MD Primary Care Provider +1- [phone] Encounter Details Date Type Department Care Team (Late st Contact Info) Description 09/02/2021 Scanned Document INTERFACE DEFAULT [address] [place] [address] System, Provider Not In Social History Tobacco [...] – [facility] 240 [facility] Building [address] [place], [place] [address] Ronald Mills MD [address] [place] [address] [address] [place] [address] documented as of this encounter [...] documented as of this encounter Care Teams 1St Grade Teacher Relationship Specialty Start Date End Date Caitlyn Bowie MD [address] [address] PCP - General Internal Medicine 05/06/21 documented as of this encounter
--- OUTSIDE RECORDS SUMMARY | 2025-03-12 16:30 | XMS_ITS | Encounter Summary ---
Author Organization [facility] Address [address] [place] [address] Phone Care Team Providers Care Branch Or Department Chief Librarian Name Role Phone Caitlyn Bowie MD Primary Care Provider +1- [phone] Encounter Details Date Type Department Care Team (Late st Contact Info) Description 10/10/2024 Documentation Only [facility] [address] [place] [address] Ron Taylor [place] [address] [place] [address] Social History Tobacco Use Types [...] Visit [facility] [address] [place] [address] Rubén Ashraf MD [address] [place] [address] [place] [address] documented as of this encounter Visit Diagnoses Not on filedocumented in this encounter Care Teams Branch Or Department Chief Librarian Relationship Specialty Start Date End Date Caitlyn Bowie MD [address] [place], [place] PCP - General Internal Medicine 09/24/24 documented as of this encounter
--- OUTSIDE RECORDS SUMMARY | 2025-03-12 16:30 | XMS_ITS | Encounter Summary ---
Author Organization [facility] Address [address] [place] [address] Care Team Providers Care Service Car Operator Name Role Phone Caitlyn Bowie MD Primary Care Provider +1- [phone] Encounter Details Date Type Department Care Team (Late st Contact Info) Description 06/07/2021 Scanned Document Onco-Oncology Program at [address] [place] [address] Norma Renee MD [address] [place] [address] 2 [place] [address] Social History Tobacco Use [...] PM EDT Telemedicine [facility] at [address] [place], [place] [phone] Ronald Mills MD [address] [facility] [address] [place] [address] documented as of this encounter Visit Diagnoses Not on filedocumented in this encounter Additional Health Concerns Infection Onset Date Last Indicated Resolved Time COVID-19 03/05/2022 03/05/2022 03/15/2022 7:18 PM EDT Assessment Noted Time PHQ-9 Depression Total Score: 2 11/07/19 19 2:06 PM EDT documented as of this encounter Care Teams Service Car Operator Relationship Specialty Start Date End Date Caitlyn Bowie MD [address] [address] PCP - General Internal Medicine 05/06/21 documented as of this encounter
--- OUTSIDE RECORDS SUMMARY | 2025-03-12 16:30 | XMS_ITS | Encounter Summary ---
Author Organization [facility] Address [address] [place] [address] Care Team Providers Care Compliance Project Manager Name Role Phone Caitlyn Bowie MD Primary Care Provider +1- [phone] Encounter Details Date Type Department Care Team (Late st Contact Info) Description 05/17/2021 Scanned Document Cancer Center at [address] [address] External, Provider Social History Tobacco Use Types [...] [facility] [address] [facility] Building [address] [place], [place] [phone] Ronald Mills MD [address] [place] [address] [address] [place] [address] documented as of this encounter [...] as of this encounter Care Teams Compliance Project Manager Relationship Specialty Start Date End Date Caitlyn Bowie MD [address] [address] PCP - General Internal Medicine 05/06/21 documented as of this encounter
--- OUTSIDE RECORDS SUMMARY | 2025-03-12 16:30 | XMS_ITS | Encounter Summary ---
Author Organization [facility] Address 20 [place] [address] Care Team Providers Care Automotive Manufacturer Name Role Phone Caitlyn Bowie MD Primary Care Provider +1- [phone] Encounter Details Date Type Department Care Team (Late st Contact Info) Description 07/08/2022 Scanned Document Cardiovascular Medicine at [address] [place] [phone] Norma Renee MD [address] [place] [phone] Social History Tobacco Use Types Packs/Day Years [...] PM EDT Telemedicine Cancer Center at [address] [place] [address] Ronald Mills MD [address] [place] [address] [address] [place] [address] documented as of this encounter Visit Diagnoses Not on filedocumented in this encounter Additional Health Concerns Assessment Noted Time PHQ-9 Depression Total Score: 2 11/07/19 19 2:06 PM EDT documented as of this encounter Care Teams Automotive Manufacturer Relationship Specialty Start Date End Date Caitlyn Bowie MD [address] [address] PCP - General Internal Medicine 05/06/21 documented as of this encounter
--- OUTSIDE RECORDS SUMMARY | 2025-03-12 16:30 | XMS_ITS | Encounter Summary ---
Author Organization [facility] Address [address] [place] [address] Care Team Providers Care Product Marketing Executive Name Role Phone Caitlyn Bowie MD Primary Care Provider +1- [phone] Encounter Details Date Type Department Care Team (Late st Contact Info) Description 10/24/2022 Scanned Document INTERFACE DEFAULT [address] [place] [address] System, Provider Not In Social History Tobacco [...] [facility] 240 [facility] Building [address] [place], [place] [phone] Ronald Mills MD [address] [place] [address] [address] [place] [address] documented as of this encounter [...] as of this encounter Care Teams Product Marketing Executive Relationship Specialty Start Date End Date Caitlyn Bowie MD [facility] [address] [address] PCP - General Internal Medicine 05/06/21 documented as of this encounter
--- OUTSIDE RECORDS SUMMARY | 2025-03-12 16:30 | XMS_ITS | Encounter Summary ---
Author Organization [facility] Address [address] [place] [address] Care Team Providers Care Powder Blender And Pourer Name Role Phone Caitlyn Bowie MD Primary Care Provider +1- [phone] Encounter Details Date Type Department Care Team (Late st Contact Info) Description 04/29/2021 Scanned Document INTERFACE DEFAULT [address] [place] [address] System, Provider Not In Social History Tobacco [...] Cancer Center at [facility] 240 [facility] Building [address] [place] [address] Ronald Mills MD [address] [place] [address] [address] [place] [address] documented as of this encounter Procedures Procedure Name Priority Date/Time Associated Diagnosis Comments CARDIAC MISC. RESULT SCAN 04/29/2021 12:00 AM EDT CARDIAC [...] documented as of this encounter Care Teams Powder Blender And Pourer Relationship Specialty Start Date End Date Caitlyn Bowie MD [address] [address] PCP - General Internal Medicine 05/06/21 documented as of this encounter
--- OUTSIDE RECORDS SUMMARY | 2025-03-12 16:30 | XMS_ITS | Encounter Summary ---
Author Organization [facility] Address [address] [place] [address] Care Team Providers Care Operational Meteorologist Name Role Phone Caitlyn Bowie MD Primary Care Provider +1- [phone] Encounter Details Date Type Department Care Team (Late st Contact Info) Description 06/21/2022 Scanned Document INTERFACE DEFAULT [address] [place] [address] System, Provider Not In Social History Tobacco [...] at [facility] 240 [facility] Building [address] [place], [place] [phone] Ronald Mills MD [address] [place] [address] [address] [place] [address] documented as of this encounter [...] documented as of this encounter Care Teams Operational Meteorologist Relationship Specialty Start Date End Date Caitlyn Bowie MD [address] [address] PCP - General Internal Medicine 05/06/21 documented as of this encounter
--- OUTSIDE RECORDS SUMMARY | 2025-03-12 16:30 | XMS_ITS | Encounter Summary ---
Author Organization [facility] Address [address] [place] [address] Care Team Providers Care Cylindrical Mixer Name Role Phone Caitlyn Bowie MD Primary Care Provider +1- [phone] Encounter Details Date Type Department Care Team (Late st Contact Info) Description 09/10/2021 Scanned Document Cardiovascular Medicine at [address] [place] [phone] Norma Renee MD [address] [place] [phone] Social History Tobacco Use Types Packs/Day Years [...] PM EDT Telemedicine Cancer Center at [address] [place] [address] Ronald Mills MD [address] [place] [address] [address] [place] [address] documented as of this encounter [...] End Date Caitlyn Bowie MD [address] [address] PCP - General Internal Medicine 05/06/21 documented as of this encounter
--- OUTSIDE RECORDS SUMMARY | 2025-03-12 16:30 | XMS_ITS | Encounter Summary ---
Author Organization [facility] Address [address] [place] [address] Care Team Providers Care Box Spring Maker Name Role Phone Caitlyn Bowie MD Primary Care Provider +1- [phone] Encounter Details Date Type Department Care Team (Late st Contact Info) Description 06/28/2022 Scanned Document INTERFACE DEFAULT [address] [place] [address] System, Provider Not In Social History Tobacco [...] at [facility] 240 [facility] Building [address] [place], [place] [phone] Ronald Mills MD [address] [place] [address] [address] [place] [address] documented as of this encounter [...] as of this encounter Care Teams Box Spring Maker Relationship Specialty Start Date End Date Caitlyn Bowie MD [address] [address] PCP - General Internal Medicine 05/06/21 documented as of this encounter
--- OUTSIDE RECORDS SUMMARY | 2025-03-12 16:30 | XMS_ITS | Encounter Summary ---
Author Organization [facility] Address [address] [place] [address] Care Team Providers Care Data Communications Technician Name Role Phone Caitlyn Bowie MD Primary Care Provider +1- [phone] Encounter Details Date Type Department Care Team (Late st Contact Info) Description 09/23/2021 Scanned Document INTERFACE DEFAULT [address] [place] [address] System, Provider Not In Social History Tobacco [...] [facility] Building [address] [place], [place] [address] Ronald Mills MD [address] [place] [address] [address] [place] [address] documented as [...] as of this encounter Care Teams Data Communications Technician Relationship Specialty Start Date End Date Caitlyn Bowie MD [address] [address] PCP - General Internal Medicine 05/06/21 documented as of this encounter
--- OUTSIDE RECORDS SUMMARY | 2025-03-12 16:30 | XMS_ITS | Encounter Summary ---
Author Organization [facility] Address [address] [place] [address] Care Team Providers Care Agriscience Technology Instructor Name Role Phone Caitlyn Bowie MD Primary Care Provider +1- [phone] Encounter Details Date Type Department Care Team (Late st Contact Info) Description 09/07/2021 Scanned Document INTERFACE DEFAULT [address] [place] [address] System, Provider Not In Social History Tobacco [...] Cancer Center at [facility] 240 [facility] Building [address] [place], [place] [address] Ronald Mills MD [address] [place] [address] [address] [place] [address] documented as of this encounter [...] documented as of this encounter Care Teams Agriscience Technology Instructor Relationship Specialty Start Date End Date Caitlyn Bowie MD [address] [address] PCP - General Internal Medicine 05/06/21 documented as of this encounter
--- OUTSIDE RECORDS SUMMARY | 2025-03-12 16:30 | XMS_ITS | Encounter Summary ---
Author Organization [facility] Address [address] [place] [address] Care Team Providers Care Food Clerk Name Role Phone Caitlyn Bowie MD Primary Care Provider +1- [phone] Encounter Details Date Type Department Care Team (Late st Contact Info) Description 07/22/2021 Scanned Document INTERFACE DEFAULT [address] [place] [address] System, Provider Not In Social History Tobacco [...] Cancer Center at [facility] 240 [facility] Building [address] [place], [place] [address] Ronald Mills MD [address] [place] [address] [address] [place] [address] documented as of this encounter [...] as of this encounter Care Teams Food Clerk Relationship Specialty Start Date End Date Caitlyn Bowie MD [address] [address] PCP - General Internal Medicine 05/06/21 documented as of this encounter
--- OUTSIDE RECORDS SUMMARY | 2025-03-12 16:30 | XMS_ITS | Encounter Summary ---
Author Organization [facility] Address [address] [place] [address] Care Team Providers Care Polisher Apprentice Name Role Phone Caitlyn Bowie MD Primary Care Provider +1- [phone] Encounter Details Date Type Department Care Team (Late st Contact Info) Description 06/07/2021 Scanned Document Cancer Center at [address] [address] External, Provider Social History Tobacco Use Types [...] at [facility] 240 [facility] Building [address] [place], [place] [address] Ronald Mills MD [address] [place] [address] [address]1 [place] [address] documented as of this encounter Visit Diagnoses Not on filedocumented in this encounter Additional Health Concerns Infection Onset Date Last Indicated Resolved Time COVID-19 03/05/2022 03/05/2022 03/15/2022 7:18 PM EDT Assessment Noted Time PHQ-9 Depression Total Score: 2 11/07/19 19 2:06 PM EDT documented as of this encounter Care Teams Polisher Apprentice Relationship Specialty Start Date End Date Caitlyn Bowie MD [address] [address] PCP - General Internal Medicine 05/06/21 documented as of this encounter
--- OUTSIDE RECORDS SUMMARY | 2025-03-12 16:30 | XMS_ITS | Encounter Summary ---
Author Organization [facility] Address [address] [place] [address] Care Team Providers Care Road Conductor Name Role Phone Caitlyn Bowie MD Primary Care Provider +1- [phone] Encounter Details Date Type Department Care Team (Late st Contact Info) Description 08/23/2022 Abstract Cardiovascular Medicine at [address] [place] [address] Norma Renee MD [address] [place] [phone] Social History Tobacco Use Types Packs/Day Years [...] PM EDT Telemedicine Cancer Center at [address] [place] [address] Ronald Mills MD [address] [place] [address] [address] [place] [address] documented as of this encounter Visit Diagnoses Not on filedocumented in this encounter Additional Health Concerns Assessment Noted Time PHQ-9 Depression Total Score: 2 11/07/19 19 2:06 PM EDT documented as of this encounter Care Teams Road Conductor Relationship Specialty Start Date End Date Caitlyn Bowie MD [address] [address] PCP - General Internal Medicine 05/06/21 documented as of this encounter
--- OUTSIDE RECORDS SUMMARY | 2025-03-12 16:30 | XMS_ITS | Encounter Summary ---
Author Organization [facility] Address [address] [place] [address] Care Team Providers Care Medical Lab Director Name Role Phone Caitlyn Bowie MD Primary Care Provider +1- [phone] Encounter Details Date Type Department Care Team (Late st Contact Info) Description 10/15/2018 Scanned Document [facility] Health Information Management [address] [place] [address] External, Provider Social History Tobacco Use Types [...] [facility] 240 [facility] Building [address] [place], [place] [address] Ronald Mills MD 240 [facility] A1 [place] [address] documented as of this encounter Visit Diagnoses Not on filedocumented in this encounter Additional Health Concerns Infection Onset Date Last Indicated Resolved Time COVID-19 03/05/2022 03/05/2022 03/15/2022 7:18 PM EDT documented as of this encounter Care Teams Medical Lab Director Relationship Specialty Start Date End Date Caitlyn Bowie MD 3400 [facility] 1 [place] [address] PCP - General Internal Medicine 05/06/21 Henry Kelly MD Pulmonary Department [address] [facility] [place] [address] Physician Pulmonary Disease 09/06/17 06/22/20 documented as of this encounter
--- OUTSIDE RECORDS SUMMARY | 2025-03-12 16:30 | XMS_ITS | Encounter Summary ---
Author Organization [facility] Address [address] [place] [address] Care Team Providers Care Fence Post Cutter Name Role Phone Caitlyn Bowie MD Primary Care Provider +1- [phone] Reason for Visit * Reason Comments FYI Encounter Details Date Type Department Care Team (Late st Contact Info) Description 05/24/2021 Telephone [facility] at [facility] at [address] [place] [address] 2nd [place], [place] [phone] Solo Henry MD [address] [place] [phone] FYI Social History Tobacco Use Types [...] Center at [facility] 240 [facility] Building [address] [place] [address] Ronald Mills MD 240 [facility] Max [address] [place] [address] documented as of this encounter Visit Diagnoses Not on filedocumented in this encounter Additional Health Concerns Infection Onset Date Last Indicated Resolved Time COVID-19 03/05/2022 03/05/2022 03/15/2022 7:18 PM EDT Assessment Noted Time PHQ-9 Depression Total Score: 2 11/07/19 19 2:06 PM EDT documented as of this encounter Care Teams Fence Post Cutter Relationship Specialty Start Date End Date Caitlyn Bowie MD 3400 [facility] 1 [place] [address] PCP - General Internal Medicine 05/06/21 documented as of this encounter
--- OUTSIDE RECORDS SUMMARY | 2025-03-12 16:30 | XMS_ITS | Encounter Summary ---
Author Organization [facility] Address [address] [place] [address] Care Team Providers Care Peer Educator Name Role Phone Caitlyn Bowie MD Primary Care Provider +1- [phone] Encounter Details Date Type Department Care Team (Late st Contact Info) Description 06/27/2022 Scanned Document INTERFACE DEFAULT [address] [place] [address] System, Provider Not In Social History Tobacco [...] [facility] 240 [facility] Building [address] [place], [place] [address] Ronald Mills MD [address] [place] [address] [address] [place] [address] documented as of this encounter [...] as of this encounter Care Teams Peer Educator Relationship Specialty Start Date End Date Caitlyn Bowie MD [facility] [address] [address] PCP - General Internal Medicine 05/06/21 documented as of this encounter
--- OUTSIDE RECORDS SUMMARY | 2025-03-12 16:30 | XMS_ITS | Encounter Summary ---
Author Organization [facility] Address [address] [place] [address] Care Team Providers Care Human Resources Designate Name Role Phone Caitlyn Bowie MD Primary Care Provider +1- [phone] Encounter Details Date Type Department Care Team (Late st Contact Info) Description 04/28/2021 Scanned Document INTERFACE DEFAULT [address] [place] [address] System, Provider Not In Social History Tobacco [...] [facility] Building [address] [place], [place] [address] Ronald Mills MD [address] [place] [address] [address] [place] [address] documented as of this encounter [...] of this encounter Care Teams Human Resources Designate Relationship Specialty Start Date End Date Caitlyn Bowie MD [address] [address] PCP - General Internal Medicine 05/06/21 documented as of this encounter
--- OUTSIDE RECORDS SUMMARY | 2025-03-12 16:30 | XMS_ITS | Encounter Summary ---
Author Organization [facility] Address [address] [place] [address] Care Team Providers Care Cyanide Pot Tender Name Role Phone Caitlyn Bowie MD Primary Care Provider +1- [phone] Encounter Details Date Type Department Care Team (Late st Contact Info) Description 06/26/2018 Scanned Document [facility] Health Information Management [address] [place] [address] External, Provider Social History Tobacco Use Types [...] Center at [facility] 240 [facility] Building [address] [place], [place] [phone] Ronald Mills MD 240 [facility] A1 [place] [address] documented as of this encounter Visit Diagnoses Not on filedocumented in this encounter Additional Health Concerns Infection Onset Date Last Indicated Resolved Time COVID-19 03/05/2022 03/05/2022 03/15/2022 7:18 PM EDT documented as of this encounter Care Teams Cyanide Pot Tender Relationship Specialty Start Date End Date Caitlyn Bowie MD 3400 [facility] 1 [place] [address] PCP - General Internal Medicine 05/06/21 Henry Kelly MD Pulmonary Department [address] [facility] [place] [address] Physician Pulmonary Disease 09/06/17 06/22/20 documented as of this encounter
--- OUTSIDE RECORDS SUMMARY | 2025-03-12 16:30 | XMS_ITS | Encounter Summary ---
Author Organization [facility] Address [address] [place] [address] Care Team Providers Care Waste Reclaimer Name Role Phone Caitlyn Bowie MD Primary Care Provider +1- [phone] Encounter Details Date Type Department Care Team (Late st Contact Info) Description 07/26/2018 Scanned Document [facility] Health Information Management [address] [place] [address] External, Provider Social History Tobacco Use Types [...] [facility] 240 [facility] Building [address] [place], [place] [address] Ronald Mills MD 240 [facility] A1 [place] [address] documented as of this encounter [...] documented as of this encounter Care Teams Waste Reclaimer Relationship Specialty Start Date End Date Caitlyn Bowie MD 3400 [facility] 1 [place] [address] PCP - General Internal Medicine 05/06/21 Henry Kelly MD Pulmonary Department 175 [facility] [place] [address] Physician Pulmonary Disease 09/06/17 06/22/20 documented as of this encounter
--- OUTSIDE RECORDS SUMMARY | 2025-03-12 16:30 | XMS_ITS | Encounter Summary ---
Author Organization [facility] and [facility] Address [address] [place] [address] Care Team Providers Care Cloth Burler Name Role Phone Caitlyn Bowie MD Primary Care Provider +1- [phone] Encounter Details Date Type Department Care Team (Late st Contact Info) Description 04/27/2021 Scanned Document INTERFACE DEFAULT [address] [place] [address] System, Provider Not In Social History Tobacco [...] Center at [facility] 240 [facility] Building [address] [place] [address] Ronald Mills MD [address] [place] [address] [address] [place] [address] documented as of this encounter Procedures Procedure Name Priority Date/Time Associated Diagnosis Comments CARDIAC MISC. RESULT SCAN 04/27/2021 12:00 AM EDT CARDIAC [...] as of this encounter Care Teams Cloth Burler Relationship Specialty Start Date End Date Caitlyn Bowie MD [address] [address] PCP - General Internal Medicine 05/06/21 documented as of this encounter
--- OUTSIDE RECORDS SUMMARY | 2025-03-12 16:30 | XMS_ITS | Encounter Summary ---
Author Organization [facility] and [facility] Address [address] [place] [address] Care Team Providers Care Registered Respiratory Technician Name Role Phone Caitlyn Bowie MD Primary Care Provider +1- [phone] Reason for Visit * Reason Comments Advice Only Encounter Details Date Type Department Care Team ([facility] st Contact Info) Description 06/01/2021 Telephone [facility] at [address] [id number] Ronald Mills MD [address] [place] [address] Advice Only Social History Tobacco Use [...] added that she's called before and sent Funny Or Die messages but hasn't received a reply,[phone]. documented in this encounter Plan of Treatment Upcoming Encounters Date Type Department Care Team (Late st Contact Info) Description 04/25/2025 4:00 PM EDT Telemedicine [facility] 240 [facility] Building [address] [place], [place] [phone] Ronald Mills MD 240 [facility] Max [address] [place] [phone] documented as of this encounter Visit Diagnoses Not on filedocumented in this encounter Additional Health Concerns Infection Onset Date Last Indicated Resolved Time COVID-19 03/05/2022 03/05/2022 03/15/2022 7:18 PM EDT Assessment Noted Time PHQ-9 Depression Total Score: 2 11/07/19 19 2:06 PM EDT documented as of this encounter Care Teams Registered Respiratory Technician Relationship Specialty Start Date End Date Caitlyn Bowie MD 3400 [facility] 1 [place] [address] PCP - General Internal Medicine 05/06/21 documented as of this encounter
--- OUTSIDE RECORDS SUMMARY | 2025-03-12 16:30 | XMS_ITS | Encounter Summary ---
Author Organization [facility] and [facility] Address [address] [place] [address] Care Team Providers Care Garbage Collector Name Role Phone Caitlyn Bowie MD Primary Care Provider +1- [phone] Encounter Details Date Type Department Care Team (Late st Contact Info) Description 09/09/2021 Scanned Document INTERFACE DEFAULT [address] [place] [address] System, Provider Not In Social History Tobacco [...] Center at [facility] 240 [facility] Building [address] [place] [address] Ronald Mills MD [address] [place] [address] [address]1 [place] [address] documented as of this encounter Visit Diagnoses Not on filedocumented in this encounter Additional Health Concerns Infection Onset Date Last Indicated Resolved Time COVID-19 03/05/2022 03/05/2022 03/15/2022 7:18 PM EDT Assessment Noted Time PHQ-9 Depression Total Score: 2 11/07/19 19 2:06 PM EDT documented as of this encounter Care Teams Garbage Collector Relationship Specialty Start Date End Date Caitlyn Bowie MD [address] [address] PCP - General Internal Medicine 05/06/21 documented as of this encounter
--- OUTSIDE RECORDS SUMMARY | 2025-03-12 16:30 | XMS_ITS | Encounter Summary ---
Author Organization [facility] and [facility] Address [address] [place] [address] Care Team Providers Care Oracle Applications Analyst Name Role Phone Caitlyn Bowie MD Primary Care Provider +1- [phone] Encounter Details Date Type Department Care Team (Late st Contact Info) Description 05/27/2021 Telephone [facility] at [address] [address] Ronald Mills MD [address] [place] [address] Social History Tobacco Use Types Packs/Day [...] at [facility] 240 [facility] [address] [place], [place] [address] Ronald Mills MD 240 [facility] [address] [place] [address] documented as of this encounter Visit Diagnoses Not on filedocumented in this encounter Additional Health Concerns Infection Onset Date Last Indicated Resolved Time COVID-19 03/05/2022 03/05/2022 03/15/2022 7:18 PM EDT Assessment Noted Time PHQ-9 Depression Total Score: 2 11/07/19 19 2:06 PM EDT documented as of this encounter Care Teams Oracle Applications Analyst Relationship Specialty Start Date End Date Caitlyn Bowie MD [address] [address] PCP - General Internal Medicine 05/06/21 documented as of this encounter
--- OUTSIDE RECORDS SUMMARY | 2025-03-12 16:30 | XMS_ITS | Encounter Summary ---
Author Organization [facility] and [facility] Address [address] [place] [address] Care Team Providers Care Rag Cutting Machine Feeder Name Role Phone Caitlyn Bowie MD Primary Care Provider +1- [phone] Encounter Details Date Type Department Care Team (Late st Contact Info) Description 05/05/2021 Scanned Document INTERFACE DEFAULT [address] [place] [address] System, Provider Not In Social History Tobacco [...] Cancer Center at [facility] 240 [facility] [address] [place] [address] Ronald Mills MD [address] [place] [address] [address] [place] [address] documented as of this encounter Visit Diagnoses Not on filedocumented in this encounter Additional Health Concerns Infection Onset Date Last Indicated Resolved Time COVID-19 03/05/2022 03/05/2022 03/15/2022 7:18 PM EDT Assessment Noted Time PHQ-9 Depression Total Score: 2 11/07/19 19 2:06 PM EDT documented as of this encounter Care Teams Rag Cutting Machine Feeder Relationship Specialty Start Date End Date Caitlyn Bowie MD [address] [address] PCP - General Internal Medicine 05/06/21 documented as of this encounter
--- OUTSIDE RECORDS SUMMARY | 2025-03-12 16:30 | XMS_ITS | Encounter Summary ---
Author Organization [facility] and [facility] Address [address] [place] [address] Care Team Providers Care Agency Service Coordinator Name Role Phone Caitlyn Bowie MD Primary Care Provider +1- [phone] Encounter Details Date Type Department Care Team (Late st Contact Info) Description 12/23/2022 Scanned Document INTERFACE DEFAULT [address] [place] [address] System, Provider Not In Social History Tobacco [...] [facility] 240 [facility] Building [address] [place] [address] Ronald Mills MD [address] [place] [address] [address] [place] [address] documented as of this encounter Visit Diagnoses Not on filedocumented in this encounter Additional Health Concerns Assessment Noted Time PHQ-9 Depression Total Score: 2 11/07/19 19 2:06 PM EDT documented as of this encounter Care Teams Agency Service Coordinator Relationship Specialty Start Date End Date Caitlyn Bowie MD [address] [address] PCP - General Internal Medicine 05/06/21 documented as of this encounter"
--- OUTSIDE RECORDS SUMMARY | 2025-03-12 16:30 | XMS_ITS | Encounter Summary ---
Author Organization [facility] and [facility] Address [address] [place] [address] Care Team Providers Care Edge Inker Name Role Phone Caitlyn Bowie MD Primary Care Provider +1- [phone] Encounter Details Date Type Department Care Team (Late st Contact Info) Description 06/23/2022 Scanned Document INTERFACE DEFAULT [address] [place] [address] System, Provider Not In Social History Tobacco [...] Cancer Center at [facility] 240 [facility] Building [address] [place] [address] Ronald Mills MD [address] [place] [address] [address]1 [place] [address] documented as of this encounter Visit Diagnoses Not on filedocumented in this encounter Additional Health Concerns Assessment Noted Time PHQ-9 Depression Total Score: 2 11/07/19 19 2:06 PM EDT documented as of this encounter Care Teams Edge Inker Relationship Specialty Start Date End Date Caitlyn Bowie MD [address] [address] PCP - General Internal Medicine 05/06/21 documented as of this encounter
--- OUTSIDE RECORDS SUMMARY | 2025-03-12 16:30 | XMS_ITS | Encounter Summary ---
Author Organization [facility] Address [address] [place] [address] [address] [place] [address] Phone Care Team Providers Care Bi Tester Name Role Phone Caitlyn Bowie MD Primary Care Provider +1- [phone] Encounter Details Date Type Department Care Team (Late st Contact Info) Description 08/30/2024 Abstract [facility] 2447 [facility] 202 [place] [address] Adalgisa Whitney MD [address] [place] [address] 202 [place] [address] Social History Tobacco [...] PM EDT Telemedicine Cancer Center at [address] [place] [address] Ronald Mills MD [address] [place] [phone] documented as of this encounter Visit Diagnoses Not on filedocumented in this encounter Additional Health Concerns Assessment Noted Time PHQ-9 Depression Total Score: 2 11/07/19 19 2:06 PM EDT documented as of this encounter Care Teams Bi Tester Relationship Specialty Start Date End Date Caitlyn Bowie MD [address] [address] PCP - General Internal Medicine 05/06/21 documented as of this encounter
--- OUTSIDE RECORDS SUMMARY | 2025-03-12 16:30 | XMS_ITS | Encounter Summary ---
Author Organization [facility] and [facility] Address [address] [place] [address] Care Team Providers Care Diet Tech Name Role Phone Caitlyn Bowie MD Primary Care Provider +1- [phone] Encounter Details Date Type Department Care Team (Late st Contact Info) Description 06/08/2022 Scanned Document INTERFACE DEFAULT [address] [place] [address] System, Provider Not In Social History Tobacco [...] [facility] at [facility] 240 [facility] Building [address] [place], [place] [phone] Ronald Mills MD [address] [place] [address] [address] [place] [address] documented as of this encounter [...] documented as of this encounter Care Teams Diet Tech Relationship Specialty Start Date End Date Caitlyn Bowie MD [address] [address] PCP - General Internal Medicine 05/06/21 documented as of this encounter
--- OUTSIDE RECORDS SUMMARY | 2025-03-12 16:30 | XMS_ITS | Encounter Summary ---
Author Organization [facility] and [facility] Address [address] [place] [address] Care Team Providers Care Marketing Designer Name Role Phone Caitlyn Bowie MD Primary Care Provider +1- [phone] Encounter Details Date Type Department Care Team (Late st Contact Info) Description 07/28/2022 Scanned Document Onco-Oncology Program at [address] [place] [address] Norma Renee MD [address] [place] [address] 2 [place] [address] Social History Tobacco Use Types [...] PM EDT Telemedicine Cancer Center at [address] [place], [place] [phone] Ronald Mills MD 240 [facility] A1 [place] [address] documented as of this encounter Visit Diagnoses Not on filedocumented in this encounter Additional Health Concerns Assessment Noted Time PHQ-9 Depression Total Score: 2 11/07/19 19 2:06 PM EDT documented as of this encounter Care Teams Marketing Designer Relationship Specialty Start Date End Date Caitlyn Bowie MD [address] [address] PCP - General Internal Medicine 05/06/21 documented as of this encounter
--- OUTSIDE RECORDS SUMMARY | 2025-03-12 16:30 | XMS_ITS | Encounter Summary ---
Author Organization [facility] and [facility] Address [address] [place] [address] Care Team Providers Care Guest Advisor Name Role Phone Caitlyn Bowie MD Primary Care Provider +1- [phone] Encounter Details Date Type Department Care Team (Late st Contact Info) Description 08/07/2018 Scanned Document [facility] Health Information Management [address] [place] [address] External, Provider Social History Tobacco Use Types [...] [facility] 240 [facility] Building [address] [place], [place] [phone] Ronald Mills MD [address] [place] [address] [address] [place] [address] documented as of this encounter Visit Diagnoses Not on filedocumented in this encounter Additional Health Concerns Infection Onset Date Last Indicated Resolved Time COVID-19 03/05/2022 03/05/2022 03/15/2022 7:18 PM EDT documented as of this encounter Care Teams Guest Advisor Relationship Specialty Start Date End Date Caitlyn Bowie MD 3400 [facility] 1 [place] [address] PCP - General Internal Medicine 05/06/21 Henry Kelly MD Pulmonary Department 175 [facility] [address] [place] [address] Physician Pulmonary Disease 09/06/17 06/22/20 documented as of this encounter
--- OUTSIDE RECORDS SUMMARY | 2025-03-12 16:30 | XMS_ITS | Encounter Summary ---
Author Organization [facility] and [facility] Address [address] [place] [address] Care Team Providers Care Cable Assembler Name Role Phone Caitlyn Bowie MD Primary Care Provider +1- [phone] Encounter Details Date Type Department Care Team (Late st Contact Info) Description 04/26/2021 Scanned Document INTERFACE DEFAULT [address] [place] [address] System, Provider Not In Social History Tobacco [...] Cancer Center at [facility] 240 [facility] Building [address] [place], [place] [phone] Ronald Mills MD [address] [place] [address] [address] [place] [address] documented as of this encounter [...] as of this encounter Care Teams Cable Assembler Relationship Specialty Start Date End Date Caitlyn Bowie MD [address] [address] PCP - General Internal Medicine 05/06/21 documented as of this encounter
--- OUTSIDE RECORDS SUMMARY | 2025-03-12 16:30 | XMS_ITS | Encounter Summary ---
Author Organization [facility] Address [address] [place] [address] Care Team Providers Care Farrowing Worker Name Role Phone Pcp, No Primary Care Provider Brennan Mario MD Primary Care Provider [phone] Caitlyn Bowie MD Primary Care Provider +1- [phone] Encounter Details Date Type Department Care Team (Late st Contact Info) Description 01/04/2022 Scanned Document [facility] Neurology Ophthalmology [address] [address] Yary Whitten DO [address] [place] [address] Social History Tobacco Use Types Packs/Day [...] on filedocumented in this encounter Care Teams Farrowing Worker Relationship Specialty Start Date End Date Pcp, No PCP - General General Medicine 10/04/21 07/18/22 Brennan Burnett MD [address] [place] [address] PCP - General 07/19/22 03/19/23 Caitlyn Bowie MD 3400 [place] [address] PCP - General Internal Medicine 03/20/23 documented as of this encounter
--- OUTSIDE RECORDS SUMMARY | 2025-03-12 16:30 | XMS_ITS | Encounter Summary ---
Author Organization [facility] and [facility] Address [address] [place] [address] Care Team Providers Care Drafting Detailer Name Role Phone Caitlyn Bowie MD Primary Care Provider +1- [phone] Encounter Details Date Type Department Care Team (Late Contact Info) Description 01/31/2023 Abstract [facility] Mel[facility] 35 [facility] [place] [address] Shilpi Romero, RN Social History Tobacco Use [...] at [facility] 240 [facility] Building [address] [place], [place] [address] Ronald Mills MD 240 [facility] Max [address] [place] [address] documented as of this encounter Visit Diagnoses Not on filedocumented in this encounter Additional Health Concerns Assessment Noted Time PHQ-9 Depression Total Score: 2 11/07/19 19 2:06 PM EDT documented as of this encounter Care Teams Drafting Detailer Relationship Specialty Start Date End Date Caitlyn Bowie MD [address] [address] PCP - General Internal Medicine 05/06/21 documented as of this encounter
--- OUTSIDE RECORDS SUMMARY | 2025-03-12 16:30 | XMS_ITS | Encounter Summary ---
Author Organization [facility] and [facility] Address [address] [place] [address] Care Team Providers Care Slip Maker Name Role Phone Caitlyn Bowie MD Primary Care Provider +1- [phone] Encounter Details Date Type Department Care Team (Late st Contact Info) Description 06/20/2022 Scanned Document INTERFACE DEFAULT [address] [place] [address] System, Provider Not In Social History Tobacco [...] [facility] at [facility] 240 [facility] Building [address] [place], [place] [address] Ronald Mills MD [address] [place] [address] [address] [place] [address] documented as of this encounter [...] as of this encounter Care Teams Slip Maker Relationship Specialty Start Date End Date Caitlyn Bowie MD [facility] [address] [address] PCP - General Internal Medicine 05/06/21 documented as of this encounter
--- OUTSIDE RECORDS SUMMARY | 2025-03-12 16:30 | XMS_ITS | Encounter Summary ---
Author Organization [facility] and [facility] Address [address] [place] [address] Care Team Providers Care Project Manager Process Development Name Role Phone Caitlyn Bowie MD Primary Care Provider +1- [phone] Encounter Details Date Type Department Care Team (Late st Contact Info) Description 07/07/2021 Scanned Document INTERFACE DEFAULT [address] [place] [address] System, Provider Not In Social History Tobacco [...] – [facility] 240 [facility] Building [address] [place] [address] Ronald Mills MD [address] [place] [address] [address]1 [place] [address] documented as of this encounter Visit Diagnoses Not on filedocumented in this encounter Additional Health Concerns Infection Onset Date Last Indicated Resolved Time COVID-19 03/05/2022 03/05/2022 03/15/2022 7:18 PM EDT Assessment Noted Time PHQ-9 Depression Total Score: 2 11/07/19 19 2:06 PM EDT documented as of this encounter Care Teams Project Manager Process Development Relationship Specialty Start Date End Date Caitlyn Bowie MD [address] [address] PCP - General Internal Medicine 05/06/21 documented as of this encounter
--- OUTSIDE RECORDS SUMMARY | 2025-03-12 16:31 | XMS_ITS | Encounter Summary ---
Author Organization [facility] and [facility] Address [address] [place] [address] Care Team Providers Care Steward Racetrack Name Role Phone Caitlyn Bowie MD Primary Care Provider +1- [phone] Encounter Details Date Type Department Care Team (Late st Contact Info) Description 04/13/2023 Scanned Document INTERFACE DEFAULT [address] [place] [address] System, Provider Not In Social History Tobacco [...] [facility] 240 [facility] Building [address] [place] [address] Ronadl Mills MD [address] [place] [address] [address] [place] [address] documented as of this encounter [...] documented as of this encounter Care Teams Steward Racetrack Relationship Specialty Start Date End Date Caitlyn Bowie MD [address] [address] PCP - General Internal Medicine 05/06/21 documented as of this encounter
--- OUTSIDE RECORDS SUMMARY | 2025-03-12 16:31 | XMS_ITS | Encounter Summary ---
Author Organization [facility] and [facility] Address [address] [place] [address] Care Team Providers Care Residence Hall Director Name Role Phone Caitlyn Bowie MD Primary Care Provider +1- [phone] Encounter Details Date Type Department Care Team (Late st Contact Info) Description 01/28/2019 Scanned Document [facility] Health Information Management [address] [place] [address] External, Provider Social History Tobacco Use Types [...] [facility] 240 [facility] Building [address] [place] [address] Ronald Mills MD [address] [place] [address] [address]1 [place] [address] documented as of this encounter Visit Diagnoses Not on filedocumented in this encounter Additional Health Concerns Infection Onset Date Last Indicated Resolved Time COVID-19 03/05/2022 03/05/2022 03/15/2022 7:18 PM EDT Assessment Noted Time PHQ-9 Depression Total Score: 2 11/07/19 19 2:06 PM EDT documented as of this encounter Care Teams Residence Hall Director Relationship Specialty Start Date End Date Caitlyn Bowie MD 3400 [facility] 1 [place] [address] PCP - General Internal Medicine 05/06/21 Henry Kelly MD Pulmonary Department 175 [facility], [address] [place] [address] Physician Pulmonary Disease 09/06/17 06/22/20 documented as of this encounter
--- OUTSIDE RECORDS SUMMARY | 2025-03-12 16:31 | XMS_ITS | Encounter Summary ---
Author Organization [facility] and [facility] Address [address] [place] [address] Care Team Providers Care Bone Density Technician Name Role Phone Caitlyn Bowie MD Primary Care Provider +1- [phone] Encounter Details Date Type Department Care Team (Late st Contact Info) Description 01/26/2019 Scanned Document [facility] Health Information Management [address] [place] [address] External, Provider Social History Tobacco Use Types [...] [facility] at [facility] 240 [facility] Building [address] [place] [address] Ronald Mills MD [address] [place] [address] [address]1 [place] [address] documented as of this encounter [...] as of this encounter Care Teams Bone Density Technician Relationship Specialty Start Date End Date Caitlyn Bowie MD 3400 [facility] 1 [place] [address] PCP - General Internal Medicine 05/06/21 Henry Kelly MD Pulmonary Department 175 [facility], [address] [place] [address] Physician Pulmonary Disease 09/06/17 06/22/20 documented as of this encounter
--- OUTSIDE RECORDS SUMMARY | 2025-03-12 16:31 | XMS_ITS | Encounter Summary ---
Author Organization [facility] and [facility] Address [address] [place] [address] Care Team Providers Care Oncology Physician Assistant Name Role Phone Caitlyn Bowie MD Primary Care Provider +1- [phone] Encounter Details Date Type Department Care Team (Late st Contact Info) Description 05/02/2022 Scanned Document INTERFACE DEFAULT [address] [place] [address] System, Provider Not In Social History Tobacco [...] [facility] 240 [facility] Building [address] [place] [address] Ronald Mills MD [address] [place] [address] [address] [place] [address] documented as of this encounter [...] documented as of this encounter Care Teams Oncology Physician Assistant Relationship Specialty Start Date End Date Caitlyn Bowie MD [address] [address] PCP - General Internal Medicine 05/06/21 documented as of this encounter
--- OUTSIDE RECORDS SUMMARY | 2025-03-12 16:31 | XMS_ITS | Encounter Summary ---
Author Organization [facility] and [facility] Address [address] [place] [address] Care Team Providers Care Earring Maker Name Role Phone Caitlyn Bowie MD Primary Care Provider +1- [phone] Encounter Details Date Type Department Care Team (Late st Contact Info) Description 04/11/2019 Scanned Document [facility] Health Information Management [address] [place] [address] External, Provider Social History Tobacco Use Types [...] [facility] Building [address] [place] [address] Ronald Mills MD [address] [place] [address] [address] [place] [address] documented as of this encounter [...] documented as of this encounter Care Teams Earring Maker Relationship Specialty Start Date End Date Caitlyn Bowie MD 3400 [facility] 1 [place] [address] PCP - General Internal Medicine 05/06/21 Henry Kelly MD Pulmonary Department 175 [facility], [address] [place] [address] Physician Pulmonary Disease 09/06/17 06/22/20 documented as of this encounter
--- OUTSIDE RECORDS SUMMARY | 2025-03-12 16:31 | XMS_ITS | Encounter Summary ---
Author Organization [facility] Address [address] [place] [address] Care Team Providers Care Electronic Device Repairer Name Role Phone Caitlyn Bowie MD Primary Care Provider +1- [phone] Encounter Details Date Type Department Care Team (Late st Contact Info) Description 04/28/2022 Scanned Document INTERFACE DEFAULT [address] [place] [address] System, Provider Not In Social History Tobacco [...] Health – [facility] 240 [facility] Building [address] [place], [place] [phone] Ronald Mills MD [address] [place] [address] [address] [place] [address] documented as of this encounter [...] as of this encounter Care Teams Electronic Device Repairer Relationship Specialty Start Date End Date Caitlyn Bowie MD [facility] [address] [address] PCP - General Internal Medicine 05/06/21 documented as of this encounter
--- OUTSIDE RECORDS SUMMARY | 2025-03-12 16:31 | XMS_ITS | Encounter Summary ---
Author Organization [facility] and [facility] Address [address] [place] [address] Care Team Providers Care Field Nurse Case Manager Name Role Phone Caitlyn Bowie MD Primary Care Provider +1- [phone] Encounter Details Date Type Department Care Team (Late st Contact Info) Description 04/25/2022 Scanned Document INTERFACE DEFAULT [address] [place] [address] System, Provider Not In Social History Tobacco [...] at [facility] 240 [facility] Building [address] [place] [address] Ronald Mills MD [address] [place] [address] [address] [place] [address] documented as of this encounter Visit Diagnoses Not on filedocumented in this encounter Additional Health Concerns Assessment Noted Time PHQ-9 Depression Total Score: 2 11/07/19 19 2:06 PM EDT documented as of this encounter Care Teams Field Nurse Case Manager Relationship Specialty Start Date End Date Caitlyn Bowie MD [address] [address] PCP - General Internal Medicine 05/06/21 documented as of this encounter
--- OUTSIDE RECORDS SUMMARY | 2025-03-12 16:31 | XMS_ITS | Encounter Summary ---
Author Organization [facility] Address [address] [place] [address] Care Team Providers Care Set Up Mechanic Coil Winding Machines Name Role Phone Caitlyn Bowie MD Primary Care Provider +1- [phone] Encounter Details Date Type Department Care Team (Late st Contact Info) Description 04/18/2022 Scanned Document INTERFACE DEFAULT [address] [place] [address] System, Provider Not In Social History Tobacco [...] [facility] 240 [facility] Building [address] [place] [address] Ronald Mills MD [address] [place] [address] [address] [place] [address] documented as of this encounter Visit Diagnoses Not on filedocumented in this encounter Additional Health Concerns Assessment Noted Time PHQ-9 Depression Total Score: 2 11/07/19 19 2:06 PM EDT documented as of this encounter Care Teams Set Up Mechanic Coil Winding Machines Relationship Specialty Start Date End Date Caitlyn Bowie MD [address] [address] PCP - General Internal Medicine 05/06/21 documented as of this encounter
--- OUTSIDE RECORDS SUMMARY | 2025-03-12 16:31 | XMS_ITS | Encounter Summary ---
Author Organization [facility] and [facility] Address [address] [place] [address] Care Team Providers Care Recoverer Name Role Phone Caitlyn Bowie MD Primary Care Provider +1- [phone] Encounter Details Date Type Department Care Team (Late Contact Info) Description 04/12/2022 Scanned Document [facility] Health Information Management [address] [place] [address] External, Provider Social History Tobacco Use Types [...] [facility] 240 [facility] Building [address] [place], [place] [phone] Ronald Mills MD [address] [place] [address] [address] [place] [address] documented as of this encounter [...] documented as of this encounter Care Teams Recoverer Relationship Specialty Start Date End Date Caitlyn Bowie MD [address] [address] PCP - General Internal Medicine 05/06/21 documented as of this encounter
--- OUTSIDE RECORDS SUMMARY | 2025-03-12 16:31 | XMS_ITS | Encounter Summary ---
Author Organization [facility] and [facility] Address [address] [place] [address] Care Team Providers Care Surveying Or Spatial Science Technician Name Role Phone Caitlyn Bowie MD Primary Care Provider +1- [phone] Encounter Details Date Type Department Care Team (Late st Contact Info) Description 05/17/2023 Scanned Document INTERFACE DEFAULT [address] [place] [address] System, Provider Not In Social History Tobacco [...] – [facility] 240 [facility] Building [address] [place], [place] [address] Ronald Mills MD [address] [place] [address] [address] [place] [address] documented as of this encounter [...] documented as of this encounter Care Teams Surveying Or Spatial Science Technician Relationship Specialty Start Date End Date Caitlyn Bowie MD [address] [place] [address] [address] PCP - General Internal Medicine 05/06/21 documented as of this encounter
--- OUTSIDE RECORDS SUMMARY | 2025-03-12 16:31 | XMS_ITS | Encounter Summary ---
Author Organization [facility] and [facility] Address [address] [place] [address] Care Team Providers Care Whitewater Rafting Guide Name Role Phone Caitlyn Bowie MD Primary Care Provider +1- [phone] Encounter Details Date Type Department Care Team (Late st Contact Info) Description 08/28/2015 Scanned Document [facility] Health Information Management [address] [place] [address] External, Provider Social History Tobacco Use Types [...] [facility] 240 [facility] Building [address] [place], [place] [phone] Ronald Mills MD 240 [facility] A1 [place] [address] documented as of this encounter Visit Diagnoses Not on filedocumented in this encounter Additional Health Concerns Infection Onset Date Last Indicated Resolved Time COVID-19 03/05/2022 03/05/2022 03/15/2022 7:18 PM EDT documented as of this encounter Care Teams Whitewater Rafting Guide Relationship Specialty Start Date End Date Caitlyn Bowie MD 3400 [facility] 1 [place] [address] PCP - General Internal Medicine 05/06/21 Henry Kelly MD Pulmonary Department 175 [facility], [address] [place] [address] Physician Pulmonary Disease 09/06/17 06/22/20 documented as of this encounter
--- OUTSIDE RECORDS SUMMARY | 2025-03-12 16:31 | XMS_ITS | Encounter Summary ---
Author Organization [facility] and [facility] Address [address] [place] [address] Care Team Providers Care Data Librarian Name Role Phone Caitlyn Bowie MD Primary Care Provider +1- [phone] Encounter Details Date Type Department Care Team (Late st Contact Info) Description 12/03/2015 Scanned Document [facility] Health Information Management [address] [place] [address] External, Provider Social History Tobacco Use Types [...] at [facility] 240 [facility] Building [address] [place], [place] [address] Ronald Mills MD 240 [facility] [address] [place] [address] documented as of this encounter Procedures Procedure Name Priority Date/Time Associated Diagnosis Comments LAB SCAN Routine 12/03/2015 documented in this encounter Results * Lab Scan (12/03/2015) Blood specimen (specimen) us Provider External LAB BLOOD ORDERABLES Edited Re sult - Final [facility] documented in this encounter Visit Diagnoses Not on filedocumented in this encounter Additional Health Concerns Infection Onset Date Last Indicated Resolved Time COVID-19 03/05/2022 03/05/2022 03/15/2022 7:18 PM EDT documented as of this encounter Care Teams Data Librarian Relationship Specialty Start Date End Date Caitlyn Bowie MD 3400 [facility] 1 [place] [address] PCP - General Internal Medicine 05/06/21 Henry Kelly MD Pulmonary Department 175 [facility], [address] [place] [address] Physician Pulmonary Disease 09/06/17 06/22/20 documented as of this encounter
--- OUTSIDE RECORDS SUMMARY | 2025-03-12 16:31 | XMS_ITS | Encounter Summary ---
Author Organization [facility] Address [address] [place] [address] Care Team Providers Care Smoking Tobacco Packing Machine Hand Name Role Phone Pcp, No Primary Care Provider Brennan Mario MD Primary Care Provider [phone] Caitlyn Bowie MD Primary Care Provider +1- [phone] Encounter Details Date Type Department Care Team (Late st Contact Info) Description 01/04/2022 Scanned Document [facility] Neurology Ophthalmology [address] [address] Yary Whitten DO [address] [place] [address] Social History Tobacco Use Types Packs/Day [...] on filedocumented in this encounter Care Teams Smoking Tobacco Packing Machine Hand Relationship Specialty Start Date End Date Pcp, No PCP - General General Medicine 10/04/21 07/18/22 Brennan Burnett MD [address] [place] [address] PCP - General 07/19/22 03/19/23 Caitlyn Bowie MD 3400 [place] [address] PCP - General Internal Medicine 03/20/23 documented as of this encounter
--- OUTSIDE RECORDS SUMMARY | 2025-03-12 16:31 | XMS_ITS | Encounter Summary ---
Author Organization [facility] and [facility] Address [address] [place] [address] Care Team Providers Care Mold Unloader Name Role Phone Ciatlyn Bowie MD Primary Care Provider +1- [phone] Encounter Details Date Type Department Care Team (Late st Contact Info) Description 05/16/2023 Scanned Document INTERFACE DEFAULT [address] [place] [address] System, Provider Not In Social History Tobacco [...] [facility] 240 [facility] Building [address] [place], [place] [address] Ronald Mills MD [address] [place] [address] [address] [place] [address] documented as of this encounter [...] as of this encounter Care Teams Mold Unloader Relationship Specialty Start Date End Date Caitlyn Bowie MD [address] [address] PCP - General Internal Medicine 05/06/21 documented as of this encounter
--- OUTSIDE RECORDS SUMMARY | 2025-03-12 16:31 | XMS_ITS | Encounter Summary ---
Author Organization [facility] and [facility] Address [address] [place] [address] Care Team Providers Care Data Communications Engineer Name Role Phone Caitlyn Bowie MD Primary Care Provider +1- [phone] Encounter Details Date Type Department Care Team (Late st Contact Info) Description 01/17/2019 Scanned Document [facility] Health Information Management [address] [place] [address] External, Provider Social History Tobacco Use Types [...] [facility] 240 [facility] Building [address] [place] [address] Ronald Mills MD [address] [place] [address] [address]1 [place] [address] documented as of this encounter [...] of this encounter Care Teams Data Communications Engineer Relationship Specialty Start Date End Date Caitlyn Bowie MD 3400 [facility] 1 [place] [address] PCP - General Internal Medicine 05/06/21 Henry Kelly MD Pulmonary Department 175 [facility], [address] [place] [address] Physician Pulmonary Disease 09/06/17 06/22/20 documented as of this encounter
--- OUTSIDE RECORDS SUMMARY | 2025-03-12 16:31 | XMS_ITS | Encounter Summary ---
Author Organization [facility] and [facility] Address [address] [place] [address] Care Team Providers Care Creative Manager Name Role Phone Caitlyn Bowie MD Primary Care Provider +1- [phone] Encounter Details Date Type Department Care Team (Late st Contact Info) Description 04/13/2022 Scanned Document INTERFACE DEFAULT [address] [place] [address] System, Provider Not In Social History Tobacco [...] [facility] – [facility] 240 [facility] Building [address] [place], [place] [address] Ronald Mills MD [address] [place] [address] [address] [place] [address] documented as of this encounter [...] as of this encounter Care Teams Creative Manager Relationship Specialty Start Date End Date Caitlyn Bowie MD [address] [address] PCP - General Internal Medicine 05/06/21 documented as of this encounter
--- OUTSIDE RECORDS SUMMARY | 2025-03-12 16:31 | XMS_ITS | Encounter Summary ---
Author Organization [facility] and [facility] Address [address] [place] [address] Care Team Providers Care Berry Grower Name Role Phone Caitlyn Bowie MD Primary Care Provider +1- [phone] Encounter Details Date Type Department Care Team (Late st Contact Info) Description 03/12/2019 Scanned Document [facility] Health Information Management [address] [place] [address] External, Provider Social History Tobacco Use Types [...] [facility] 240 [facility] Building [address] [place] [address] Ronald Mills MD [address] [place] [address] [address] [place] [address] documented as of this encounter [...] documented as of this encounter Care Teams Berry Grower Relationship Specialty Start Date End Date Caitlyn Bowie MD 3400 [facility] 1 [place] [address] PCP - General Internal Medicine 05/06/21 Henry Kelly MD Pulmonary Department 175 [facility], [address] [place] [address] Physician Pulmonary Disease 09/06/17 06/22/20 documented as of this encounter
--- OUTSIDE RECORDS SUMMARY | 2025-03-12 16:31 | XMS_ITS | Encounter Summary ---
Author Organization [facility] Address [address] [place] [address] Care Team Providers Care Production Quality Manager Name Role Phone Caitlyn Bowie MD Primary Care Provider +1- [phone] Encounter Details Date Type Department Care Team (Late st Contact Info) Description 01/28/2019 Scanned Document Cardiovascular Medicine at [address] [place] [address] Cristian Arreguin MBBS [address] [place] [address] Social History Tobacco Use Types [...] 4:00 PM EDT Telemedicine [facility] at [address] [place] [address] Ronald Mills MD [address] [place] [address] [address] [place] [address] documented as of this encounter Visit Diagnoses Not on filedocumented in this encounter Additional Health Concerns Infection Onset Date Last Indicated Resolved Time COVID-19 03/05/2022 03/05/2022 03/15/2022 7:18 PM EDT Assessment Noted Time PHQ-9 Depression Total Score: 2 11/07/19 19 2:06 PM EDT documented as of this encounter Care Teams Production Quality Manager Relationship Specialty Start Date End Date Caitlyn Bowie MD 3400 [facility] 1 [place] [address] PCP - General Internal Medicine 05/06/21 Henry Kelly MD Pulmonary Department [address] [place] [address], [address] [place] [address] Physician Pulmonary Disease 09/06/17 06/22/20 documented as of this encounter
--- OUTSIDE RECORDS SUMMARY | 2025-03-12 16:31 | XMS_ITS | Encounter Summary ---
Author Organization [facility] Address [address] [place] [address] Care Team Providers Care Platform Loader Name Role Phone Caitlyn Bowie MD Primary Care Provider +1- [phone] Encounter Details Date Type Department Care Team (Late st Contact Info) Description 04/19/2022 Scanned Document INTERFACE DEFAULT [address] [place] [address] System, Provider Not In Social History Tobacco [...] – [facility] 240 [facility] Building [address] [place], [place] [address] Ronald Mills MD [address] [place] [address] [address] [place] [address] documented as of this encounter [...] documented as of this encounter Care Teams Platform Loader Relationship Specialty Start Date End Date Caitlyn Bowie MD [address] [address] PCP - General Internal Medicine 05/06/21 documented as of this encounter
--- OUTSIDE RECORDS SUMMARY | 2025-03-12 16:31 | XMS_ITS | Encounter Summary ---
Author Organization [facility] Address [address] [place] [address] Care Team Providers Care Health Insurance Assessor Name Role Phone Caitlyn Bowie MD Primary Care Provider +1- [phone] Encounter Details Date Type Department Care Team (Late st Contact Info) Description 03/20/2023 Scanned Document [facility] Radiology [address] [place] [address] Caitlyn Bowie MD 3400 [place] [address] Social History Tobacco Use Types Packs/Day Years [...] on filedocumented in this encounter Care Teams Health Insurance Assessor Relationship Specialty Start Date End Date Caitlyn Bowie MD 3400 [place] [address] PCP - General Internal Medicine 03/20/23 documented as of this encounter
--- OUTSIDE RECORDS SUMMARY | 2025-03-12 16:31 | XMS_ITS | Encounter Summary ---
Author Organization [facility] Address [address] [place] [address] Care Team Providers Care Straight Edger Name Role Phone Caitlyn Bowie MD Primary Care Provider +1- [phone] Encounter Details Date Type Department Care Team (Late st Contact Info) Description 01/30/2019 Scanned Document [facility] Health Information Management [address] [place] [address] External, Provider Social History Tobacco Use Types [...] [facility] Building [address] [place] [address] Ronald Mills MD [address] [place] [address] [address] [place] [address] documented as of this encounter [...] documented as of this encounter Care Teams Straight Edger Relationship Specialty Start Date End Date Caitlyn Bowie MD 3400 [facility] 1 [place] [address] PCP - General Internal Medicine 05/06/21 Henry Kelly MD Pulmonary Department 175 [facility], [address] [place] [address] Physician Pulmonary Disease 09/06/17 06/22/20 documented as of this encounter
--- OUTSIDE RECORDS SUMMARY | 2025-03-12 16:31 | XMS_ITS | Encounter Summary ---
Author Organization [facility] Address [address] [place] [address] Care Team Providers Care Cream Cheese Maker Name Role Phone Caitlyn Bowie MD Primary Care Provider +1- [phone] Encounter Details Date Type Department Care Team (Late st Contact Info) Description 04/16/2022 Scanned Document INTERFACE DEFAULT [address] [place] [address] System, Provider Not In Social History Tobacco [...] [facility] 240 [facility] Building [address] [place], [place] [address] Ronald Mills MD [address] [place] [address] [address] [place] [address] documented as of this encounter [...] documented as of this encounter Care Teams Cream Cheese Maker Relationship Specialty Start Date End Date Caitlyn Bowie MD [address] [address] PCP - General Internal Medicine 05/06/21 documented as of this encounter
--- OUTSIDE RECORDS SUMMARY | 2025-03-12 16:31 | XMS_ITS | Encounter Summary ---
Author Organization [facility] and [facility] Address [address] [place] [address] Care Team Providers Care Elementary Librarian Name Role Phone Caitlyn Bowie MD Primary Care Provider +1- [phone] Encounter Details Date Type Department Care Team (Late st Contact Info) Description 02/06/2019 Scanned Document [facility] Health Information Management [address] [place] [address] External, Provider Social History Tobacco Use Types [...] [facility] 240 [facility] Building [address] [place] [address] Ronald Mills MD [address] [place] [address] [address]1 [place] [address] documented as of this encounter [...] MD 3400 [facility] 1 [place] [address] PCP - General Internal Medicine 05/06/21 Henry Kelly MD Pulmonary Department 175 [facility], [address] [place] [address] Physician Pulmonary Disease 09/06/17 06/22/20 documented as of this encounter
--- OUTSIDE RECORDS SUMMARY | 2025-03-12 16:31 | XMS_ITS | Encounter Summary ---
Author Organization [facility] and [facility] Address [address] [place] [address] Care Team Providers Care Bank Teller Name Role Phone Caitlyn Bowie MD Primary Care Provider +1- [phone] Encounter Details Date Type Department Care Team (Late st Contact Info) Description 04/22/2022 Scanned Document INTERFACE DEFAULT [address] [place] [address] System, Provider Not In Social History Tobacco [...] at [facility] 240 [facility] Building [address] [place], [place] [address] Ronald Mills MD [address] [place] [address] [address] [place] [address] documented as of this encounter [...] as of this encounter Care Teams Bank Teller Relationship Specialty Start Date End Date Caitlyn Bowie MD [address] [address] PCP - General Internal Medicine 05/06/21 documented as of this encounter
--- OUTSIDE RECORDS SUMMARY | 2025-03-12 16:31 | XMS_ITS | Encounter Summary ---
Author Organization [facility] and [facility] Address [address] [place] [address] Care Team Providers Care Manager Of Creative Services Name Role Phone Caitlyn Bowie MD Primary Care Provider +1- [phone] Encounter Details Date Type Department Care Team (Late st Contact Info) Description 11/04/2015 Scanned Document [facility] Health Information Management [address] [place] [address] External, Provider Social History Tobacco Use Types [...] Center at [facility] 240 [facility] [address] [place], [place] [phone] Ronald Mills MD 240 [facility] [address] [place] [address] documented as of this encounter Procedures Procedure Name Priority Date/Time Associated Diagnosis Comments NUC MED/PET RESULT SCAN Routine 11/04/2015 documented in this encounter Results * Nuc Med/PET Result Scan (11/04/2015) us Provider External IMG SCAN REPORTS Edited Result - Final [facility] [place], [place], [facility] documented in this encounter Visit Diagnoses Not on filedocumented in this encounter Additional Health Concerns Infection Onset Date Last Indicated Resolved Time COVID-19 03/05/2022 03/05/2022 03/15/2022 7:18 PM EDT documented as of this encounter Care Teams Manager Of Creative Services Relationship Specialty Start Date End Date Caitlyn Bowie MD 3400 [facility] Max 1 [place] [address] PCP - General Internal Medicine 05/06/21 Henry Kelly MD Pulmonary Department 175 [facility], [address] [place] [address] Physician Pulmonary Disease 09/06/17 06/22/20 documented as of this encounter
--- OUTSIDE RECORDS SUMMARY | 2025-03-12 16:31 | XMS_ITS | Encounter Summary ---
Author Organization [facility] and [facility] Address [address] [place] [address] Care Team Providers Care Integrated Logistics Programs Director Name Role Phone Caitlyn Bowie MD Primary Care Provider +1- [phone] Encounter Details Date Type Department Care Team (Late st Contact Info) Description 09/09/2015 Scanned Document [facility] Health Information Management [address] [place] [address] External, Provider Social History Tobacco Use Types [...] [facility] 240 [facility] Building [address] [place], [place] [phone] Ronald Mills MD 240 [facility] Max [address] [place] [address] documented as of this encounter Procedures Procedure Name Priority Date/Time Associated Diagnosis Comments LAB SCAN Routine 09/09/2015 documented in this encounter Results * Lab Scan (09/09/2015) Blood specimen (specimen) us Provider External LAB BLOOD ORDERABLES Final Res ult Performing Organization Address City/State/[facility] Co de Phone Number [facility] documented in this encounter Visit Diagnoses Not on filedocumented in this encounter Additional Health Concerns Infection Onset Date Last Indicated Resolved Time COVID-19 03/05/2022 03/05/2022 03/15/2022 7:18 PM EDT documented as of this encounter Care Teams Integrated Logistics Programs Director Relationship Specialty Start Date End Date Caitlyn Bowie MD 3400 [facility] 1 [place] [address] PCP - General Internal Medicine 05/06/21 Henry Kelly MD Pulmonary Department 175 [facility], [address] [place] [address] Physician Pulmonary Disease 09/06/17 06/22/20 documented as of this encounter
--- OUTSIDE RECORDS SUMMARY | 2025-03-12 16:31 | XMS_ITS | Encounter Summary ---
Author Organization [facility] and [facility] Address [address] [place] [address] Care Team Providers Care Can Patcher Name Role Phone Caitlyn Bowie MD Primary Care Provider +1- [phone] Encounter Details Date Type Department Care Team (Late st Contact Info) Description 12/04/2018 Scanned Document [facility] Health Information Management [address] [place] [phone] External, Provider Social History Tobacco Use Types [...] [facility] 240 [facility] Building [address] [place], [place] [phone] Ronald Mills MD 240 [facility] A1 [place] [address] documented as of this encounter Visit Diagnoses Not on filedocumented in this encounter Additional Health Concerns Infection Onset Date Last Indicated Resolved Time COVID-19 03/05/2022 03/05/2022 03/15/2022 7:18 PM EDT Assessment Noted Time PHQ-9 Depression Total Score: 2 11/07/19 19 2:06 PM EDT documented as of this encounter Care Teams Can Patcher Relationship Specialty Start Date End Date Caitlyn Bowie MD 3400 [facility] Max 1 [place] [address] PCP - General Internal Medicine 05/06/21 Henry Kelly MD Pulmonary Department 175 [facility], [address] [place] [address] Physician Pulmonary Disease 09/06/17 06/22/20 documented as of this encounter
--- OUTSIDE RECORDS SUMMARY | 2025-03-12 16:31 | XMS_ITS | Encounter Summary ---
Author Organization [facility] and [facility] Address [address] [place] [address] Care Team Providers Care Field Kiln Burner Name Role Phone Caitlyn Bowie MD Primary Care Provider +1- [phone] Encounter Details Date Type Department Care Team (Late st Contact Info) Description 10/23/2018 Scanned Document [facility] Health Information Management [address] [place] [address] External, Provider Social History Tobacco Use Types [...] [facility] 240 [facility] Building [address] [place], [place] [phone] Ronald Mills MD [address] [place] [address] [address] [place] [address] documented as of this encounter Visit Diagnoses Not on filedocumented in this encounter Additional Health Concerns Infection Onset Date Last Indicated Resolved Time COVID-19 03/05/2022 03/05/2022 03/15/2022 7:18 PM EDT documented as of this encounter Care Teams Field Kiln Burner Relationship Specialty Start Date End Date Caitlyn Bowie MD 3400 [facility] 1 [place] [address] PCP - General Internal Medicine 05/06/21 Henry Kelly MD Pulmonary Department 175 [facility], [address] [place] [address] Physician Pulmonary Disease 09/06/17 06/22/20 documented as of this encounter
--- OUTSIDE RECORDS SUMMARY | 2025-03-12 16:31 | XMS_ITS | Encounter Summary ---
Author Organization [facility] and [facility] Address [address] [place] [address] Care Team Providers Care Rn Referral Name Role Phone Caitlyn Bowie MD Primary Care Provider +1- [phone] Encounter Details Date Type Department Care Team (Late st Contact Info) Description 12/16/2015 Scanned Document [facility] Health Information Management [address] [place] [phone] External, Provider Social History Tobacco Use Types [...] at [facility] [facility] 240 [facility] Building [address] [place], [place] [phone] Ronald Mills MD 240 [facility] Max [address] [place] [address] documented as of this encounter Procedures Procedure Name Priority Date/Time Associated Diagnosis Comments US RESULT SCAN Routine 12/16/2015 documented in this encounter Results * US Result Scan (12/16/2015) us Provider External IMG SCAN REPORTS Edited Result - Final [facility] [place], [place], [facility] documented in this encounter Visit Diagnoses Not on filedocumented in this encounter Additional Health Concerns Infection Onset Date Last Indicated Resolved Time COVID-19 03/05/2022 03/05/2022 03/15/2022 7:18 PM EDT documented as of this encounter Care Teams Rn Referral Relationship Specialty Start Date End Date Caitlyn Bowie MD 3400 [facility] Max 1 [place] [address] PCP - General Internal Medicine 05/06/21 Henry Kelly MD Pulmonary Department 175 [facility], [address] [place] [address] Physician Pulmonary Disease 09/06/17 06/22/20 documented as of this encounter
--- OUTSIDE RECORDS SUMMARY | 2025-03-12 16:31 | XMS_ITS | Encounter Summary ---
Author Organization [facility] and [facility] Address 20 [place] [address] Care Team Providers Care Physician Assistant Certified Name Role Phone Caitlyn Bowie MD Primary Care Provider +1- [phone] Reason for Visit * Reason Comments Results Encounter Details Date Type Department Care Team (Late st Contact Info) Description 03/15/2022 Telephone [facility] at [address] [address] Ronald Mills MD [address] [place] [address] Results Social History Tobacco Use Types [...] [facility] 240 [facility] Building [address] [place], [place] [phone] Ronald Mills MD 240 [facility] Max [address] [place] [phone] documented as of this encounter Visit Diagnoses Not on filedocumented in this encounter Additional Health Concerns Infection Onset Date Last Indicated Resolved Time COVID-19 03/05/2022 03/05/2022 03/15/2022 7:18 PM EDT Assessment Noted Time PHQ-9 Depression Total Score: 2 11/07/19 19 2:06 PM EDT documented as of this encounter Care Teams Physician Assistant Certified Relationship Specialty Start Date End Date Caitlyn Bowie MD [address] [address] PCP - General Internal Medicine 05/06/21 documented as of this encounter
--- OUTSIDE RECORDS SUMMARY | 2025-03-12 16:31 | XMS_ITS | Encounter Summary ---
Author Organization [facility] and [facility] Address [address] [place] [address] Care Team Providers Care Risk Compliance Analyst Name Role Phone Caitlyn Bowie MD Primary Care Provider +1- [phone] Encounter Details Date Type Department Care Team (Late st Contact Info) Description 04/22/2019 Scanned Document [facility] Health Information Management [address] [place] [phone] External, Provider Social History Tobacco Use Types [...] [facility] 240 [facility] Building [address] [place] [address] Ronald Mills MD [address] [place] [address] [address] [place] [address] documented as of this encounter Visit Diagnoses Not on filedocumented in this encounter Additional Health Concerns Infection Onset Date Last Indicated Resolved Time COVID-19 03/05/2022 03/05/2022 03/15/2022 7:18 PM EDT Assessment Noted Time PHQ-9 Depression Total Score: 2 11/07/19 19 2:06 PM EDT documented as of this encounter Care Teams Risk Compliance Analyst Relationship Specialty Start Date End Date Caitlyn Bowie MD 3400 [facility] 1 [place] [address] PCP - General Internal Medicine 05/06/21 Henry Kelly MD Pulmonary Department 175 [facility], [address] [place] [address] Physician Pulmonary Disease 09/06/17 06/22/20 documented as of this encounter
--- OUTSIDE RECORDS SUMMARY | 2025-03-12 16:31 | XMS_ITS | Encounter Summary ---
Author Organization [facility] and [facility] Address [address] [place] [address] Care Team Providers Care Pipe Layer Name Role Phone Caitlyn Bowie MD Primary Care Provider +1- [phone] Encounter Details Date Type Department Care Team (Late st Contact Info) Description 01/09/2019 Scanned Document [facility] Health Information Management [address] [place] [phone] External, Provider Social History Tobacco Use Types [...] [facility] 240 [facility] Building [address] [place] [address] Ronald Mills MD [address] [place] [address] [address] [place] [address] documented as of this encounter [...] as of this encounter Care Teams Pipe Layer Relationship Specialty Start Date End Date Caitlyn Bowie MD 3400 [facility] 1 [place] [address] PCP - General Internal Medicine 05/06/21 Henry Kelly MD Pulmonary Department 175 [facility], [address] [place] [address] Physician Pulmonary Disease 09/06/17 06/22/20 documented as of this encounter
--- OUTSIDE RECORDS SUMMARY | 2025-03-12 16:31 | XMS_ITS | Encounter Summary ---
Author Organization [facility] and [facility] Address [address] [place] [address] Care Team Providers Care Modular Set Crew Member Name Role Phone Caitlyn Bowie MD Primary Care Provider +1- [phone] Encounter Details Date Type Department Care Team (Late st Contact Info) Description 03/02/2022 Scanned Document [facility] Health Information Management [address] [place] [phone] External, Provider Social History Tobacco Use Types [...] [facility] 240 [facility] Building [address] [place], [place] [phone] Ronald Mills MD [address] [place] [address] [address] [place] [address] documented as of this encounter Visit Diagnoses Not on filedocumented in this encounter Additional Health Concerns Infection Onset Date Last Indicated Resolved Time COVID-19 03/05/2022 03/05/2022 03/15/2022 7:18 PM EDT Assessment Noted Time PHQ-9 Depression Total Score: 2 11/07/19 19 2:06 PM EDT documented as of this encounter Care Teams Modular Set Crew Member Relationship Specialty Start Date End Date Caitlyn Bowie MD [address] [address] PCP - General Internal Medicine 05/06/21 documented as of this encounter
--- OUTSIDE RECORDS SUMMARY | 2025-03-12 16:31 | XMS_ITS | Encounter Summary ---
Author Organization [facility] and [facility] Address [address] [place] [address] Care Team Providers Care Template Inspector Name Role Phone Caitlyn Bowie MD Primary Care Provider +1- [phone] Encounter Details Date Type Department Care Team (Late st Contact Info) Description 01/13/2019 Scanned Document [facility] Health Information Management [address] [place] [address] External, Provider Social History Tobacco Use Types [...] [facility] Building [address] [place] [address] Ronald Mills MD [address] [place] [address] [address] [place] [address] documented as of this encounter [...] as of this encounter Care Teams Template Inspector Relationship Specialty Start Date End Date Caitlyn Bowie MD 3400 [facility] 1 [place] [address] PCP - General Internal Medicine 05/06/21 Henry Kelly MD Pulmonary Department 175 [facility], [address] [place] [address] Physician Pulmonary Disease 09/06/17 06/22/20 documented as of this encounter
--- OUTSIDE RECORDS SUMMARY | 2025-03-12 16:31 | XMS_ITS | Encounter Summary ---
Author Organization [facility] and [facility] Address 20 [place] [address] Care Team Providers Care Manager News Name Role Phone Caitlyn Bowie MD Primary Care Provider +1- [phone] Encounter Details Date Type Department Care Team (Late st Contact Info) Description 05/10/2022 Scanned Document Cardiovascular Medicine at [address] [place] [address] Norma Renee MD [address] [place] [phone] Social History Tobacco Use Types Packs/Day Years [...] PM EDT [facility] at [address] [place] [address] Ronald Mills MD [address] [place] [address] [address] [place] [address] documented as of this encounter Visit Diagnoses Not on filedocumented in this encounter Additional Health Concerns Assessment Noted Time PHQ-9 Depression Total Score: 2 11/07/19 19 2:06 PM EDT documented as of this encounter Care Teams Manager News Relationship Specialty Start Date End Date Caitlyn Bowie MD [address] [address] PCP - General Internal Medicine 05/06/21 documented as of this encounter
--- OUTSIDE RECORDS SUMMARY | 2025-03-12 16:31 | XMS_ITS | Encounter Summary ---
Author Organization [facility] Address [address] [place] [address] Care Team Providers Care Trans Router Name Role Phone Caitlyn Bowie MD Primary Care Provider +1- [phone] Encounter Details Date Type Department Care Team (Late st Contact Info) Description 12/06/2018 Scanned Document [facility] Health Information Management [address] [place] [address] External, Provider Social History Tobacco Use Types [...] at [facility] [address] [facility] Building [address] [place], [place] [phone] Ronald Mills MD [address] [place] [address] [address] [place] [address] documented as of this encounter [...] documented as of this encounter Care Teams Trans Router Relationship Specialty Start Date End Date Caitlyn Bowie MD 3400 [facility] 1 [place] [address] PCP - General Internal Medicine 05/06/21 Henry Kelly MD Pulmonary Department 175 [facility], [address] [place] [address] Physician Pulmonary Disease 09/06/17 06/22/20 documented as of this encounter
--- OUTSIDE RECORDS SUMMARY | 2025-03-12 16:31 | XMS_ITS | Encounter Summary ---
Author Organization [facility] and [facility] Address 20 [place] [address] Care Team Providers Care Adobe Flex Developer Name Role Phone Caitlyn Bowie MD Primary Care Provider +1- [phone] Encounter Details Date Type Department Care Team (Late st Contact Info) Description 09/24/2015 Scanned Document Digestive Diseases at 40 [facility] 40 [facility] 1A [place] [address] Kevin Espinoza MD [address] [place] [address] Social History Tobacco Use Types Packs/Day [...] PM EDT Tele[facility] at [address] [place], [place] [phone] Ronald Mills MD [address] [place] [address] [address] [place] [address] documented as of this encounter Visit Diagnoses Not on filedocumented in this encounter Additional Health Concerns Infection Onset Date Last Indicated Resolved Time COVID-19 03/05/2022 03/05/2022 03/15/2022 7:18 PM EDT documented as of this encounter Care Teams Adobe Flex Developer Relationship Specialty Start Date End Date Caitlyn Bowie MD 3400 [facility] 1 [place] [address] PCP - General Internal Medicine 05/06/21 Henry Kelly MD Pulmonary Department 175 [facility], [address] [place] [address] Physician Pulmonary Disease 09/06/17 06/22/20 documented as of this encounter
--- OUTSIDE RECORDS SUMMARY | 2025-03-12 16:31 | XMS_ITS | Encounter Summary ---
Author Organization [facility] and [facility] Address [address] [place] [address] Care Team Providers Care Shoe Repairer Name Role Phone Caitlyn Bowie MD Primary Care Provider +1- [phone] Encounter Details Date Type Department Care Team (Late st Contact Info) Description 12/29/2021 Telephone [facility] at [address] - [address] [address] Ronald Mills MD [address] [place] [address] Social History Tobacco Use Types Packs/Day [...] not sure where the blood's coming from. [phone] documented in this encounter Plan of Treatment Upcoming Encounters Date Type Department Care Team (Late st Contact Info) Description 04/25/2025 4:00 PM EDT Telemedicine Cancer Center at [facility] 240 [facility] Building [address] [place] [address] Ronald Mills MD 240 [facility] A1 [place] [address] documented as of this encounter Visit Diagnoses Not on filedocumented in this encounter Additional Health Concerns Infection Onset Date Last Indicated Resolved Time COVID-19 03/05/2022 03/05/2022 03/15/2022 7:18 PM EDT Assessment Noted Time PHQ-9 Depression Total Score: 2 11/07/19 19 2:06 PM EDT documented as of this encounter Care Teams Shoe Repairer Relationship Specialty Start Date End Date Caitlyn Bowie MD [address] [address] PCP - General Internal Medicine 05/06/21 documented as of this encounter
--- OUTSIDE RECORDS SUMMARY | 2025-03-12 16:31 | XMS_ITS | Encounter Summary ---
Author Organization [facility] and [facility] Address [address] [place] [address] Care Team Providers Care Borematic Operator Name Role Phone Caitlyn Bowie MD Primary Care Provider +1- [phone] Encounter Details Date Type Department Care Team (Late st Contact Info) Description 12/01/2015 Scanned Document [facility] Health Information Management [address] [place] [phone] External, Provider Social History Tobacco Use Types [...] at [facility] 240 [facility] Building [address] [place], [place] [phone] Ronald Mills MD 240 [facility] Max [address] [place] [address] documented as of this encounter Procedures Procedure Name Priority Date/Time Associated Diagnosis Comments CT RESULT SCAN Routine 12/01/2015 documented in this encounter Results * CT Result Scan (12/01/2015) us Provider External IMG SCAN REPORTS Edited Result - Final [facility] [place], [place], [facility] documented in this encounter Visit Diagnoses Not on filedocumented in this encounter Additional Health Concerns Infection Onset Date Last Indicated Resolved Time COVID-19 03/05/2022 03/05/2022 03/15/2022 7:18 PM EDT documented as of this encounter Care Teams Borematic Operator Relationship Specialty Start Date End Date Caitlyn Bowie MD 3400 [facility] Max 1 [place] [address] PCP - General Internal Medicine 05/06/21 Henry Kelly MD Pulmonary Department 175 [facility], [address] [place] [address] Physician Pulmonary Disease 09/06/17 06/22/20 documented as of this encounter
--- OUTSIDE RECORDS SUMMARY | 2025-03-12 16:31 | XMS_ITS | Encounter Summary ---
Author Organization [facility] and [facility] Address [address] [place] [address] Care Team Providers Care Rod Piler Name Role Phone Caitlyn Bowie MD Primary Care Provider +1- [phone] Encounter Details Date Type Department Care Team (Late st Contact Info) Description 09/09/2015 Scanned Document [facility] Health Information Management [address] [place] [phone] External, Provider Social History Tobacco Use Types [...] [facility] 240 [facility] Building [address] [place], [place] [phone] Ronald Mills MD 240 [facility] Max [address] [place] [address] documented as of this encounter Procedures Procedure Name Priority Date/Time Associated Diagnosis Comments LAB SCAN Routine 09/09/2015 documented in this encounter Results * Lab Scan (09/09/2015) Blood specimen (specimen) us Provider External LAB BLOOD ORDERABLES Final Res ult [facility] documented in this encounter Visit Diagnoses Not on filedocumented in this encounter Additional Health Concerns Infection Onset Date Last Indicated Resolved Time COVID-19 03/05/2022 03/05/2022 03/15/2022 7:18 PM EDT documented as of this encounter Care Teams Rod Piler Relationship Specialty Start Date End Date Caitlyn Bowie MD 3400 [facility] 1 [place] [address] PCP - General Internal Medicine 05/06/21 Henry Kelly MD Pulmonary Department 175 [facility], [address] [place] [address] Physician Pulmonary Disease 09/06/17 06/22/20 documented as of this encounter
--- OUTSIDE RECORDS SUMMARY | 2025-03-12 16:31 | XMS_ITS | Encounter Summary ---
Author Organization [facility] and [facility] Address [address] [place] [address] Care Team Providers Care Shadow Graph Weight Operator Name Role Phone Caitlyn Bowie MD Primary Care Provider +1- [phone] Encounter Details Date Type Department Care Team (Late st Contact Info) Description 09/28/2015 Scanned Document [facility] Health Information Management [address] [place] [address] External, Provider Social History Tobacco Use Types [...] [facility] [address] [facility] [address] [place], [place] [phone] Ronald iMlls MD 240 [facility] [address] [place] [address] documented as of this encounter Procedures Procedure Name Priority Date/Time Associated Diagnosis Comments LAB SCAN Routine 09/09/2015 documented in this encounter Results * Lab Scan (09/09/2015) Blood specimen (specimen) us Provider External LAB BLOOD ORDERABLES Final Res ult [facility] documented in this encounter Visit Diagnoses Not on filedocumented in this encounter Additional Health Concerns Infection Onset Date Last Indicated Resolved Time COVID-19 03/05/2022 03/05/2022 03/15/2022 7:18 PM EDT documented as of this encounter Care Teams Shadow Graph Weight Operator Relationship Specialty Start Date End Date Caitlyn Bowie MD 3400 [facility] 1 [place] [address] PCP - General Internal Medicine 05/06/21 Henry Kelly MD Pulmonary Department 175 [facility], [address] [place] [address] Physician Pulmonary Disease 09/06/17 06/22/20 documented as of this encounter
--- OUTSIDE RECORDS SUMMARY | 2025-03-12 16:31 | XMS_ITS | Encounter Summary ---
Author Organization [facility] and [facility] Address [address] [place] [address] Care Team Providers Care Commercial Director Name Role Phone Caitlyn Bowie MD Primary Care Provider +1- [phone] Encounter Details Date Type Department Care Team (Late st Contact Info) Description 04/20/2023 Scanned Document INTERFACE DEFAULT [address] [place] [address] System, Provider Not In Social History Tobacco [...] [facility] [address] [place], [place] [phone] Ronald Mills MD [address] [place] [address] [address] [place] [address] documented as of this encounter [...] as of this encounter Care Teams Commercial Director Relationship Specialty Start Date End Date Caitlyn Bowie MD [address] [address] PCP - General Internal Medicine 05/06/21 documented as of this encounter
--- OUTSIDE RECORDS SUMMARY | 2025-03-12 16:31 | XMS_ITS | Encounter Summary ---
Author Organization [facility] and [facility] Address [address] [place] [address] Care Team Providers Care Dampener Name Role Phone Caitlyn Bowie MD Primary Care Provider +1- [phone] Encounter Details Date Type Department Care Team (Late st Contact Info) Description 09/09/2015 Scanned Document [facility] Health Information Management [address] [place] [address] External, Provider Social History Tobacco Use Types [...] [facility] Building [address] [place], [place] [id number] Ronald Mills MD 240 [facility] [address] [place] [address] documented as of this encounter Procedures Procedure Name Priority Date/Time Associated Diagnosis Comments LAB SCAN Routine 09/09/2015 documented in this encounter Results * Lab Scan (09/09/2015) Blood specimen (specimen) us Provider External LAB BLOOD ORDERABLES Final Res ult [facility] documented in this encounter Visit Diagnoses Not on filedocumented in this encounter Additional Health Concerns Infection Onset Date Last Indicated Resolved Time COVID-19 03/05/2022 03/05/2022 03/15/2022 7:18 PM EDT documented as of this encounter Care Teams Dampener Relationship Specialty Start Date End Date Caitlyn Bowie MD 3400 [facility] 1 [place] [address] PCP - General Internal Medicine 05/06/21 Henry Kelly MD Pulmonary Department [address] [facility], [address] [place] [address] Physician Pulmonary Disease 09/06/17 06/22/20 documented as of this encounter
--- OUTSIDE RECORDS SUMMARY | 2025-03-12 16:31 | XMS_ITS | Encounter Summary ---
Author Organization [facility] and [facility] Address [address] [place] [address] Care Team Providers Care Diesel Electrician Name Role Phone Caitlyn Bowie MD Primary Care Provider +1- [phone] Encounter Details Date Type Department Care Team (Late st Contact Info) Description 04/19/2023 Scanned Document INTERFACE DEFAULT [address] [place] [address] System, Provider Not In Social History Tobacco [...] [facility] 240 [facility] [address] [place], [place] [phone] Ronald Mills MD [address] [place] [address] [address] [place] [address] documented as of this encounter [...] as of this encounter Care Teams Diesel Electrician Relationship Specialty Start Date End Date Caitlyn Bowie MD [address] [address] PCP - General Internal Medicine 05/06/21 documented as of this encounter
--- OUTSIDE RECORDS SUMMARY | 2025-03-12 16:31 | XMS_ITS | Encounter Summary ---
Author Organization [facility] and [facility] Address [address] [place] [address] Care Team Providers Care Piercing Machine Operator Name Role Phone Caitlyn Bowie MD Primary Care Provider +1- [phone] Encounter Details Date Type Department Care Team (Late st Contact Info) Description 11/03/2015 Scanned Document [facility] Health Information Management [address] [place] [address] External, Provider Social History Tobacco Use Types [...] 240 [facility] [address] [place], [place] [phone] Ronald Mills MD 240 [facility] [address] [place] [address] documented as of this encounter Procedures Procedure Name Priority Date/Time Associated Diagnosis Comments US RESULT SCAN Routine 11/03/2015 documented in this encounter Results * US Result Scan (11/03/2015) us Provider External IMG SCAN REPORTS Edited Result - Final [facility] [place], [facility] documented in this encounter Visit Diagnoses Not on filedocumented in this encounter Additional Health Concerns Infection Onset Date Last Indicated Resolved Time COVID-19 03/05/2022 03/05/2022 03/15/2022 7:18 PM EDT documented as of this encounter Care Teams Piercing Machine Operator Relationship Specialty Start Date End Date Caitlyn Bowie MD 3400 [facility] Max 1 [place] [address] PCP - General Internal Medicine 05/06/21 Henry Kelly MD Pulmonary Department 175 [facility], [address] [place] [address] Physician Pulmonary Disease 09/06/17 06/22/20 documented as of this encounter
--- OUTSIDE RECORDS SUMMARY | 2025-03-12 16:31 | XMS_ITS | Encounter Summary ---
Author Organization [facility] and [facility] Address [address] [place] [address] Care Team Providers Care Manager Shipping Name Role Phone Caitlyn Bowie MD Primary Care Provider +1- [phone] Encounter Details Date Type Department Care Team (Late st Contact Info) Description 04/12/2022 Scanned Document INTERFACE DEFAULT [address] [place] [address] System, Provider Not In Social History Tobacco [...] at [facility] 240 [facility] [place] [facility] [address] [place] [address] Ronald Mills MD [address] [place] [address] [address] [place] [address] documented as of this encounter [...] as of this encounter Care Teams Manager Shipping Relationship Specialty Start Date End Date Caitlyn Bowie MD [address] [address] PCP - General Internal Medicine 05/06/21 documented as of this encounter
--- OUTSIDE RECORDS SUMMARY | 2025-03-12 16:31 | XMS_ITS | Encounter Summary ---
Author Organization [facility] and [facility] Address [address] [place] [address] Care Team Providers Care Operating System Programmer Name Role Phone Caitlyn Bowie MD Primary Care Provider +1- [phone] Encounter Details Date Type Department Care Team (Late st Contact Info) Description 12/31/2015 Scanned Document [facility] [address] [place] [address] External, Provider Social History Tobacco Use Types [...] [facility] 240 [facility] [address] [place], [place] [phone] Ronald Mills MD [address] [place] [address] [address] [place] [address] documented as of this encounter Procedures Procedure Name Priority Date/Time Associated Diagnosis Comments LAB SCAN Routine 12/31/2015 documented in this encounter Results * Lab Scan (12/31/2015) Blood specimen (specimen) us Provider External LAB BLOOD ORDERABLES Final Res ult Performing Organization Address City/State/[facility] Co de Phone Number [facility] documented in this encounter Visit Diagnoses Not on filedocumented in this encounter Additional Health Concerns Infection Onset Date Last Indicated Resolved Time COVID-19 03/05/2022 03/05/2022 03/15/2022 7:18 PM EDT documented as of this encounter Care Teams Operating System Programmer Relationship Specialty Start Date End Date Caitlyn Bowie MD 3400 [facility] 1 [place] [address] PCP - General Internal Medicine 05/06/21 Henry Kelly MD Pulmonary Department 175 [facility], [address] [place] [address] Physician Pulmonary Disease 09/06/17 06/22/20 documented as of this encounter
--- OUTSIDE RECORDS SUMMARY | 2025-03-12 16:31 | XMS_ITS | Encounter Summary ---
Author Organization [facility] and [facility] Address [address] [place] [address] Care Team Providers Care Tool Room Supervisor Name Role Phone Caitlyn Bowie MD Primary Care Provider +1- [phone] Encounter Details Date Type Department Care Team (Late st Contact Info) Description 05/04/2022 Scanned Document INTERFACE DEFAULT [address] [place] [address] System, Provider Not In Social History Tobacco [...] [facility] 240 [facility] [address] [place] [address] Ronald Mills MD [address] [place] [address] [address] [place] [address] documented as of this encounter Visit Diagnoses Not on filedocumented in this encounter Additional Health Concerns Assessment Noted Time PHQ-9 Depression Total Score: 2 11/07/19 19 2:06 PM EDT documented as of this encounter Care Teams Tool Room Supervisor Relationship Specialty Start Date End Date Caitlyn Bowie MD [address] [address] PCP - General Internal Medicine 05/06/21 documented as of this encounter
--- OUTSIDE RECORDS SUMMARY | 2025-03-12 16:31 | XMS_ITS | Encounter Summary ---
Author Organization [facility] and [facility] Address [address] [place] [address] Care Team Providers Care Manager Unit Name Role Phone Caitlyn Bowie MD Primary Care Provider +1- [phone] Encounter Details Date Type Department Care Team (Late st Contact Info) Description 01/08/2019 Scanned Document [facility] Health Information Management [address] [place] [address] External, Provider Social History Tobacco Use Types [...] [facility] 240 [facility] Building [address] [place] [address] Ronald Mills MD [address] [place] [address] [address] [place] [address] documented as of this encounter [...] as of this encounter Care Teams Manager Unit Relationship Specialty Start Date End Date Caitlyn Bowie MD 3400 [facility] 1 [place] [address] PCP - General Internal Medicine 05/06/21 Henry Kelly MD Pulmonary Department 175 [facility], [address] [place] [address] Physician Pulmonary Disease 09/06/17 06/22/20 documented as of this encounter
--- OUTSIDE RECORDS SUMMARY | 2025-03-12 16:31 | XMS_ITS | Encounter Summary ---
Author Organization [facility] and [facility] Address [address] [place] [address] Care Team Providers Care Food Production Supervisor Name Role Phone Caitlyn Bowie MD Primary Care Provider +1- [phone] Encounter Details Date Type Department Care Team (Late st Contact Info) Description 01/08/2022 Scanned Document INTERFACE DEFAULT [address] [place] [address] System, Provider Not In Social History Tobacco [...] [facility] 240 [facility] Building [address] [place], [place] [address] Ronald Mills MD [address] [place] [address] [address] [place] [address] documented as of this encounter [...] as of this encounter Care Teams Food Production Supervisor Relationship Specialty Start Date End Date Caitlyn Bowie MD [address] [address] PCP - General Internal Medicine 05/06/21 documented as of this encounter
--- OUTSIDE RECORDS SUMMARY | 2025-03-12 16:31 | XMS_ITS | Encounter Summary ---
Author Organization [facility] and [facility] Address [address] [place] [address] Care Team Providers Care Casket Upholsterer Name Role Phone Caitlyn Bowie MD Primary Care Provider +1- [phone] Encounter Details Date Type Department Care Team (Latest Contact Info) Description 12/25/2015 Transcribed Orders [facility] [address] [facility] [place] [address] Osmel Briscoe MD Other abnormality of red [...] PM EDT [facility] at [address] [place], [place] [address] Ronald Mills MD [address] [place] [address] [address] [place] [address] documented as of this encounter Results * Free kappa lambda with ratio, serum ( GH Q YH) (12/25/2015 10:09 AM EDT) Ig Brooks Free Light Chain 1.84 0.33 - 1.94 mg/dL [facility] Ig Lambda Free Light Chain 1.96 0.57 - 2.63 mg/dL [facility] Brooks/Lambda FLC Ratio 0.94 0.26 - 1.65 [facility] Blood specimen (specimen) 12/25/2015 10:09 AM EDT Result [facility] Osmel Briscoe MD LAB BLOOD ORDERABLES Final R esult Performing Organization Address [facility] Co de Phone Number [facility] [address] [place] [address] * Immunofixation, serum ( L Q YH) (12/25/2015 10:09 AM EDT) [facility] Immunofixation Electrophoresis Gel See below See Interp. [facility] Comment: INTERPRETATION: Normal immunofixation electrophoresis. No evidence of a serum monoclonal component. SIGNED BY:Keyur KAYE MD ON 12/29/2015 14:56:04 INTERPRETATION REVIEW : I have reviewed these results and agree with this interpretation. Blood specimen (specimen) 12/25/2015 10:09 AM EDT Osmel Briscoe MD LAB BLOOD ORDERABLES Final R esult Performing Organization Address [facility] Co de Phone Number [facility] [address] [address] * (ABNORMAL) Protein electrophoresis, serum ( GH L YH) (12/25/2015 10:09 AM EDT) Albumin Electrophoresis 3.45(L) 3.50 - 4.70 g/dL [facility] Rgxtb-6-Dudksgzo 0.16 0.10 - 0.30 g/dL [facility] Vnpaw-8-Qgtzrnnb 0.81 0.60 - 1.00 g/dL [facility] [...] ORDERABLES Final R esult Performing Organization Address [facility] Co de Phone Number [facility] [address] [place] [address] * Reticulocytes (GH L Q YH) (12/25/2015 10:09 AM EDT) Reticulocyte Count 2.1 0.6 - 2.7 % [facility] Blood specimen (specimen) 12/25/2015 10:09 AM EDT Osmel Briscoe MD LAB BLOOD ORDERABLES Final R esult Performing Organization Address [facility] Co de Phone Number [facility] [address] [place] [address] * (ABNORMAL) Sedimentation rate (ESR) (12/25/2015 10:09 AM EDT) Sed Rate 27(H) 0 - 20 mm/hr [facility] Blood specimen (specimen) 12/25/2015 10:09 AM EDT us Osmel Briscoe MD LAB BLOOD ORDERABLES Final R esult Performing Organization Address [facility] Co de Phone Number [facility] [address] [place] [address] * Ferritin (12/25/2015 10:09 AM EDT) Ferritin 68 9 - 120 ng/mL [facility] Blood specimen (specimen) 12/25/2015 10:09 AM EDT Osmel Briscoe MD LAB BLOOD ORDERABLES Final R esult Performing Organization Address [facility] Co de Phone Number [facility] [address] [place] [address] * Iron and TIBC (12/25/2015 10:09 AM EDT) Iron 110 50 - 170 ug/dL [facility] TIBC 290 250 - 450 ug/dL [facility] Iron Saturation 38 15 - 50 [facility] Blood specimen (specimen) 12/25/2015 10:09 AM EDT Osmel Briscoe MD LAB BLOOD ORDERABLES Final R esult Performing Organization Address [facility] Co de Phone Number [facility] [address] [place] [address] * Vitamin D 25 hydroxy (BH L [...] ORDERABLES Final R esult Performing Organization Address City/[facility]/ZIP Co de Phone Number [facility] [address] [place] [address] * TSH (BH L YH) (12/25/2015 10:09 AM EDT) TSH cancelled 0.3 - 4.2 uU/mL [facility] TSH 1.62 0.3 - 4.2 uU/mL [facility] Comment:This test is a third generation TSH assay. Blood specimen (specimen) 12/25/2015 10:09 AM EDT Osmel Briscoe MD LAB BLOOD ORDERABLES Final R esult Performing Organization Address City/[facility] Co de Phone Number [facility] [address] [place] [address] * (ABNORMAL) CBC and differential (12/25/2015 10:09 AM EDT) Pathologist [facility] CBC with Differential See Below [facility] MD LAB BLOOD ORDERABLES Final R esult [facility] [address] [place] [address] documented in this encounter Visit Diagnoses Diagnosis [...] documented as of this encounter Care Teams Casket Upholsterer Relationship Specialty Start Date End Date Caitlyn Bowie MD [address] [address] PCP - General Internal Medicine 05/06/21 Henry Kelly MD Pulmonary Department 175 [facility], [address] [place] [address] Physician Pulmonary Disease 09/06/17 06/22/20 documented as of this encounter
--- OUTSIDE RECORDS SUMMARY | 2025-03-12 16:31 | XMS_ITS | Encounter Summary ---
Author Organization [facility] Address [address] [place] [address] Care Team Providers Care Research Anthropologist Name Role Phone Caitlyn Bowie MD Primary Care Provider +1- [phone] Encounter Details Date Type Department Care Team (Late st Contact Info) Description 04/14/2022 Scanned Document INTERFACE DEFAULT [address] [place] [address] System, Provider Not In Social History Tobacco [...] [facility] 240 [facility] Building [address] [place] [address] Ronald Mills MD [address] [address] [address] [place] [address] documented as of this encounter Visit Diagnoses Not on filedocumented in this encounter Additional Health Concerns Assessment Noted Time PHQ-9 Depression Total Score: 2 11/07/19 19 2:06 PM EDT documented as of this encounter Care Teams Research Anthropologist Relationship Specialty Start Date End Date Caitlyn Bowie MD [address] [address] PCP - General Internal Medicine 05/06/21 documented as of this encounter
--- OUTSIDE RECORDS SUMMARY | 2025-03-12 16:32 | XMS_ITS | Encounter Summary ---
Author Organization [facility] Address [address] [place] [address] Care Team Providers Care Interceptor Operator Name Role Phone Caitlyn Bowie MD Primary Care Provider +1- [phone] Encounter Details Date Type Department Care Team (Late st Contact Info) Description 12/27/2018 Scanned Document [facility] Health Information Management [address] [place] [address] External, Provider Social History Tobacco Use Types [...] [facility] 240 [facility] Building [address] [place] [address] Ronald Mills MD [address] [place] [address] [address] [place] [address] documented as of this encounter [...] documented as of this encounter Care Teams Interceptor Operator Relationship Specialty Start Date End Date Caitlyn Bowie MD 3400 [facility] [place] [facility] 1 [place] [address] PCP - General Internal Medicine 05/06/21 Henry Kelly MD Pulmonary Department 175 [facility], [address] [place] [address] Physician Pulmonary Disease 09/06/17 06/22/20 documented as of this encounter
--- OUTSIDE RECORDS SUMMARY | 2025-03-12 16:32 | XMS_ITS | Encounter Summary ---
Author Organization [facility] and [facility] Address [address] [place] [address] Care Team Providers Care Limb Driver Name Role Phone Caitlyn Bowie MD Primary Care Provider +1- [phone] Encounter Details Date Type Department Care Team (Late st Contact Info) Description 12/16/2016 Scanned Document [facility] Health Information Management [address] [place] [address] External, Provider Social History Tobacco Use Types [...] [facility] 240 [facility] [address] [place], [place] [phone] Ronald Mills MD 240 [facility] Max [address] [place] [address] documented as of this encounter [...] [facility] 1 [place] [address] PCP - General Internal Medicine 05/06/21 Henry Kelly MD Pulmonary Department 175 [facility], [address] [place] [address] Physician Pulmonary Disease 09/06/17 06/22/20 documented as of this encounter
--- OUTSIDE RECORDS SUMMARY | 2025-03-12 16:32 | XMS_ITS | Encounter Summary ---
Author Organization [facility] Address [address] [place] [address] Care Team Providers Care Engraved Roller Inspector Name Role Phone Caitlyn Bowie MD Primary Care Provider +1- [phone] Encounter Details Date Type Department Care Team (Late st Contact Info) Description 07/08/2016 Scanned Document COUNT INCLUDES [facility] Health Information Management [address] [place] [address] External, Provider Social History Tobacco Use Types [...] [facility] 240 [facility] [address] [place], [place] [phone] Ronald Mills MD 240 [facility] [address] [place] [address] documented as of this encounter Procedures Procedure Name Priority Date/Time Associated Diagnosis Comments LAB SCAN Routine 07/08/2016 documented in this encounter Results * Lab Scan (07/08/2016) Blood specimen (specimen) us Provider External LAB BLOOD ORDERABLES Final Res ult [facility] documented in this encounter Visit Diagnoses Not on filedocumented in this encounter Additional Health Concerns Infection Onset Date Last Indicated Resolved Time COVID-19 03/05/2022 03/05/2022 03/15/2022 7:18 PM EDT documented as of this encounter Care Teams Engraved Roller Inspector Relationship Specialty Start Date End Date Caitlyn Bowie MD 3400 [facility] 1 [place] [address] PCP - General Internal Medicine 05/06/21 Henry Kelly MD Pulmonary Department 175 [facility], [address] [place] [address] Physician Pulmonary Disease 09/06/17 06/22/20 documented as of this encounter
--- OUTSIDE RECORDS SUMMARY | 2025-03-12 16:32 | XMS_ITS | Encounter Summary ---
Author Organization [facility] Address [address] [place] [address] Care Team Providers Care Caul Puller Name Role Phone Caitlyn Bowie MD Primary Care Provider +1- [phone] Encounter Details Date Type Department Care Team (Late st Contact Info) Description 09/09/2024 Scanned Document INTERFACE DEFAULT [address] [place] [address] System, Provider Not In Social History Tobacco [...] Center at [facility] 240 [facility] [address] [place], [place] [phone] Ronald Mills MD [address] [place] [address] [address] [place] [address] documented as of this encounter [...] documented as of this encounter Care Teams Caul Puller Relationship Specialty Start Date End Date Caitlyn Bowie MD [address] [address] PCP - General Internal Medicine 05/06/21 documented as of this encounter
--- OUTSIDE RECORDS SUMMARY | 2025-03-12 16:32 | XMS_ITS | Encounter Summary ---
Author Organization [facility] Address [address] [place] [address] Care Team Providers Care Sprigger Name Role Phone Caitlyn Bowie MD Primary Care Provider +1- [phone] Encounter Details Date Type Department Care Team (Late st Contact Info) Description 06/17/2016 Scanned Document [facility] Health Information Management [address] [place] [address] External, Provider Social History Tobacco Use Types [...] at [facility] [place] 240 [facility] [address] [place], [place] [phone] Ronald Mills MD 240 [facility] [address] [place] [address] documented as of this encounter Procedures Procedure Name Priority Date/Time Associated Diagnosis Comments XRAY RESULT SCAN Routine 06/17/2016 documented in this encounter Results * Xray Result Scan (06/17/2016) us Provider External IMG SCAN REPORTS Final Result [facility] [place], [place], [facility] documented in this encounter Visit Diagnoses Not on filedocumented in this encounter Additional Health Concerns Infection Onset Date Last Indicated Resolved Time COVID-19 03/05/2022 03/05/2022 03/15/2022 7:18 PM EDT documented as of this encounter Care Teams Sprigger Relationship Specialty Start Date End Date Caitlyn Bowie MD 3400 [facility] 1 [place] [address] PCP - General Internal Medicine 05/06/21 Henry Kelly MD Pulmonary Department [address] [place] [address], [address] [place] [address] Physician Pulmonary Disease 09/06/17 06/22/20 documented as of this encounter
--- OUTSIDE RECORDS SUMMARY | 2025-03-12 16:32 | XMS_ITS | Encounter Summary ---
Author Organization [facility] and [facility] Address [address] [place] [address] Care Team Providers Care Bridal Service Sales And Management Name Role Phone Caitlyn Bowie MD Primary Care Provider +1- [phone] Encounter Details Date Type Department Care Team (Late st Contact Info) Description 12/14/2016 Scanned Document [facility] Health Information Management [address] [place] [address] External, Provider Social History Tobacco Use Types [...] [facility] 240 [facility] Building [address] [place], [place] [phone] Ronald Mills MD 240 [facility] [address] [place] [address] [...] MD 3400 [facility] 1 [place] [address] PCP - General Internal Medicine 05/06/21 Henry Kelly MD Pulmonary Department 175 [facility], [address] [place] [address] Physician Pulmonary Disease 09/06/17 06/22/20 documented as of this encounter
--- OUTSIDE RECORDS SUMMARY | 2025-03-12 16:32 | XMS_ITS | Clinical Summary ---
Author Organization [facility] Address [address] [place] [address] Care Team Providers Care Ruby On Rails Engineer Name Role Phone Caitlyn Bowie Primary Care Provider [phone] Allergies Active Allergy Reactions Criticality Noted Date [...] Throat tightness Throat tightness Throat tightness Ipratropium Mozelle Unknown Medium 12/18/2021 Isosorbide Mononitrate 11/23/2020 Other [...] of 2) 1993 COVID-19 Vaccine (3 - 2024- season) 2025 09/03/2020, 08/06/2020 Influenza Vaccine (#1) 2025 , [...] topic Insurance MEDICARE PART A & B [facility] Care Teams Ruby On Rails Engineer Relationship Specialty Start Date End Date Caitlyn Bowie [address] [place] [address] PCP - General Internal Medicine 07/18/22
--- OUTSIDE RECORDS SUMMARY | 2025-03-12 16:32 | XMS_ITS | Encounter Summary ---
Author Organization [facility] Address [address] [place] [address] Care Team Providers Care Guitar Teacher Name Role Phone Caitlyn Bowie MD Primary Care Provider +1- [phone] Encounter Details Date Type Department Care Team (Late st Contact Info) Description 07/27/2016 Scanned Document Thoracic Oncology Program at [address] [address] Suzy Kong MD [address] [place] [address] Social History Tobacco Use Types Packs/Day [...] PM EDT Telemedicine Cancer Center at [address] [place], [place] [phone] Ronald Mills MD 240 [facility] [address] [place] [address] documented as of this encounter Visit Diagnoses Not on filedocumented in this encounter Additional Health Concerns Infection Onset Date Last Indicated Resolved Time COVID-19 03/05/2022 03/05/2022 03/15/2022 7:18 PM EDT documented as of this encounter Care Teams Guitar Teacher Relationship Specialty Start Date End Date Caitlyn Bowie MD 3400 [facility] [address] 1 [place] [address] PCP - General Internal Medicine 05/06/21 Henry Kelly MD Pulmonary Department 175 [facility], [address] [place] [address] Physician Pulmonary Disease 09/06/17 06/22/20 documented as of this encounter
--- OUTSIDE RECORDS SUMMARY | 2025-03-12 16:32 | XMS_ITS | Encounter Summary ---
Author Organization [facility] and [facility] Address [address] [place] [address] Care Team Providers Care Business Change Manager Name Role Phone Caitlyn Bowie MD Primary Care Provider +1- [phone] Encounter Details Date Type Department Care Team (Late st Contact Info) Description 04/08/2024 Scanned Document INTERFACE DEFAULT [address] [place] [address] System, Provider Not In Social History Tobacco [...] Center at [facility] 240 [facility] [address] [place], [place] [address] Ronald Mills MD [address] [place] [address] [address] [place] [address] documented as of this encounter [...] as of this encounter Care Teams Business Change Manager Relationship Specialty Start Date End Date Caitlyn Bowie MD [address] [address] PCP - General Internal Medicine 05/06/21 documented as of this encounter
--- OUTSIDE RECORDS SUMMARY | 2025-03-12 16:32 | XMS_ITS | Encounter Summary ---
Author Organization [facility] Address [address] [place] [address] Care Team Providers Care Manager Nuclear Name Role Phone Caitlyn Bowie MD Primary Care Provider +1- [phone] Reason for Visit * Reason Onset Date Comments Advice Only 02/24/2025 Encounter Details Date Type Department Care Team ([facility] st Contact Info) Description 02/24/2025 Telephone Gastroenterology - [address] [facility] [address] [place] [address] Tim Gomes MD [address] [place] [address] Social History Tobacco Use Types Packs/Day Years [...] hearing? Answer Date of Assessment Author No 02/23/2025 2:36 PM EDT Gareth Bautista RN * Are you blind or do you have serious difficulty seeing, even when wearing glasses? Answer Date of Assessment Author No 02/23/2025 2:36 PM EDT Gareth Bautista RN * Do you have serious difficulty walking or climbing stairs? Answer Date of Assessment Author No 02/23/2025 2:36 PM EDT Doles, As baljit Quiroz RN * Do you have serious difficulty dressing or bathing? Answer Date of Assessment Author No 02/23/2025 2:36 PM EDT Doles, As baljit Quiroz RN * Because of a physical, mental, or emotional condition, do you have serious difficulty doing errandsalone such as visiting the doctor? Answer Date of Assessment Author No 02/23/2025 2:36 PM EDT Doles, As baljit Quiroz RN documented as of this encounter Mental Status * Because of a physical, mental, or emotional condition, do you have serious difficulty concentrating, remembering, or making decisions? (5 years old or older) Answer Entry Date Author No 02/23/2025 2:36 PM EDT Doles, As baljit Quiroz RN documented in this encounter Progress Notes * Nola Hurst MA - 03/07/2025 3:57 PM EDT Called pt and gave below message * Olga Ivy - 03/07/2025 1:58 PM EDT Pt is calling back to speak with an MA. She states she did not receive a call. * Nola Hurst MA - 02/26/2025 11:44 AM EDT Lvm with below message Happy to see the patient. She needs to speak to the provider/ER they gave her the medication. Alternatively she can reach out to her PCP. Thank you. * Olga Ivy - 02/24/2025 8:51 AM EDT Pt is calling stating she went to the hospital yesterday and was diagnosed with diverticulitis. Shewants to know if she can be put on a cancellation list to be seen as soon as possible. Also she'd like to know what she can take in the mean time she was told by the pharmacist that they can not giveher Cipro because it can interact with her other daily medications. documented in this encounter Plan of Treatment Upcoming Encounters Date Type Department Care Team (Late st Contact Info) Description 05/29/2025 3:00 PM EST Office Visit [facility] [address] [facility] [address] [place] [address] Ayanna Jaffe MD [address] [place] [address] documented as of this encounter Visit Diagnoses Not on filedocumented in this encounter Care Teams Manager Nuclear Relationship Specialty Start Date End Date Caitlyn Bowie MD [address] [place] [address] PCP - General Internal Medicine 12/10/24 documented as of this encounter
--- OUTSIDE RECORDS SUMMARY | 2025-03-12 16:32 | XMS_ITS | Clinical Summary ---
Author Organization [facility], Address [address] [place] [address] [place] [address] Phone Care Team Providers Care Cyber Intel Planner Name Role Phone Caitlyn Bowie MD Primary Care Provider +1- [phone] Allergies Active Allergy Reactions Criticality Noted Date Comments Moxifloxacin 12/10/2024 Avocado 12/10/2024 Barium Sulfate 12/10/2024 Bee Venom 12/10/2024 Clarithromycin 12/10/2024 Buspirone 12/10/2024 CAUSES DIZZINESS, HEADACHE AND FEELING OF THROAT TIGHTNESS Ciprofloxacin 12/10/2024 Clindamycin 12/10/2024 CAUSES THROAT TIGHTENING Iodinated Contrast Media 12/10/2024 Erythromycin 12/10/2024 Metronidazole 12/10/2024 Diatrizoate 12/10/2024 Gentamicin 12/10/2024 Ipratropium 12/10/2024 Levofloxacin 12/10/2024 Morphine 12/10/2024 Procaine 12/10/2024 Other 12/10/2024 PATIENT IS ALLERGIC TO SHRIMP, IODINATED RADIOCONTRAST DYES, MOLD Penicillins 12/10/2024 Sulfa Antibiotics 12/10/2024 Vancomycin 12/10/2024 Diclofenac 12/10/2024 Azithromycin 12/10/2024 Medications ZINC SULFATE PO Take by mouth Active warfarin (COUMADIN) 1 MG tablet Take as directed per After Visit Summary. Active traZODone (DESYREL) 100 MG tablet Take 200 mg by mouth every night Active rosuvastatin (CRESTOR) 10 MG tablet Take 10 mg by mouth 3 (three) times a week Active predniSONE (DELTASONE) 2.5 MG tablet Take 2.5 mg by mouth every other day Active nystatin (MYCOSTATIN) powder Apply topically in the morning and at noon and in the evening and before bedtime. Active montelukast (SINGULAIR) 10 MG tablet Take 10 mg by mouth every night Active UNABLE TO FIND Take 1 tablet by mouth in the morning and 1 tablet in the evening. Med Name: METOPROLOL . Active levothyroxine (SYNTHROID, LEVOTHROID) 50 MCG tablet Take 50 mcg by mouth 2 (two) times a week ON MONDAY AND Active levothyroxine (SYNTHROID, LEVOTHROID) 25 MCG tablet Take 25 mcg by mouth 5 (five) times a week: Monday through Monday Active furosemide (LASIX) 40 MG tablet Take TWO tablets (80 mg) by mouth every morning and ONE tablet (40 mg) every afternoon Active folic acid (FOLVITE) 1 MG tablet Take 1 mg by mouth 1 (one) time each day Active FLUTICASONE-GRANT METEROL IN Inhale 2 puffs in the morning and 2 puffs in the evening. Active ferrous gluconate (FERGON) 324 (38 Fe) MG tablet Take 324 mg by mouth 1 (one) time each day with breakfast Active eplerenone (INSPRA) 25 MG tablet Take 25 mg by mouth 1 (one) time each day Active ELDERBERRY PO Take 15 mL by mouth 1 (one) time each day Active docusate sodium (COLACE) 100 MG capsule Take 100 mg by mouth in the morning and 100 mg in the evening. Active Active Problems Problem Noted Date Diagnosed Date Chronic kidney disease, stage 2 (mild) 5 Antiphospholipid syndrome Hypothyroidism Hypertension Hyperlipidemia Encounters Date Type Department Care Team Description 12/13/2024 1:45 PM EDT Office Visit [facility] [address] [place] [address] Art Jung MD Hypercalcemia (Primary Dx) 12/12/2024 Documentation Only [facility] [address] [place] [address] Marina Abdi 12/12/2024 Documentation Only [facility] [address] [place] [address] Jin, Marina 12/10/2024 Documentation Only [facility] [address] [place] [address] Jin, Marina 12/10/2024 Documentation Only [facility] [address] [place] [address] Jin, Marina 12/10/2024 Documentation Only [facility] [address] [place] [address] Jin, Marina 12/10/2024 Documentation Only [facility] [address] [place] [address] Jin, Marina 12/10/2024 Documentation Only [facility] [address] [place] [address] Jin, Marina 12/10/2024 Documentation Only [facility] [address] [place] [address] Jin, Marina from Last 3 Months Immunizations Immunization Administration Dates Next Due Influenza (IM) Preservative Free 04/18/2016 Influenza Vaccine, Quadrival ent, Adjuvanted 04/27/2020 Influenza Whole 04/22/2019 Moderna SARS-COV-2 09/03/2020,08/06/2020 Pneumococcal Conjugate 13-Valent 04/21/2014 Pneumococcal Polysaccharide 08/31/2021,0 03/25/2016,09/17/2015,05/09 Tdap 02/28/2016,02/17/2016 Family History Medical History Relation Comments Cirrhosis Father of the liver Lung cancer Maternal Grandfather Lung cancer Maternal Grandmother Aneurysm Mother abdominal aortic , cerebral arterial aneurysm Hypothyroidism Mother Lung cancer Mother Leukemia Sister Relation Status Comments Father Maternal Grandfather Maternal Grandmother Mother Sister Social History Tobacco Use Types [...] Visit [facility], [address] [place] [address] Rubén Ashraf MD [address] [facility] [place] [address] Health Maintenance Due Date Last Done Comments Influenza Vaccine (#1) 2025 , 04/22/2019, 04/18/2016 Pneumococcal Vaccine: 50+ Years Completed 08/31/2021, 03/25/2016, 09/17/2015, Additional history exists Hepatitis B Vaccine Aged Out No longe r eligible based on patient's age to complete this topic Insurance Medicare [facility] Care Teams Cyber Intel Planner Relationship Specialty Start Date End Date Caitlyn Bowie MD [address] [place] [address] PCP - General Internal Medicine 09/24/24
--- OUTSIDE RECORDS SUMMARY | 2025-03-12 16:32 | XMS_ITS | Encounter Summary ---
Author Organization [facility] Address [address] [place] [address] Care Team Providers Care Tmd Teacher Assistant Name Role Phone Caitlyn Bowie MD Primary Care Provider +1- [phone] Encounter Details Date Type Department Care Team (Late st Contact Info) Description 09/23/2024 Scanned Document INTERFACE DEFAULT [address] [place] [address] System, Provider Not In Social History Tobacco [...] Health – [facility] 240 [facility] Building [address] [place], [place] [phone] Ronald Mills MD [address] [place] [address] [address] [place] [address] documented as [...] documented as of this encounter Care Teams Tmd Teacher Assistant Relationship Specialty Start Date End Date Caitlyn Bowie MD [address] [address] PCP - General Internal Medicine 05/06/21 documented as of this encounter
--- OUTSIDE RECORDS SUMMARY | 2025-03-12 16:32 | XMS_ITS | Encounter Summary ---
Author Organization [facility] Address [address] [place] [address] Care Team Providers Care Open Hearth Door Liner Name Role Phone Catilyn Bowie MD Primary Care Provider +1- [phone] Encounter Details Date Type Department Care Team (Late st Contact Info) Description 06/17/2016 Scanned Document [facility] Health Information Management [address] [place] [address] External, Provider Social History Tobacco Use Types [...] at [facility] 240 [facility] Building [address] [place], [place] [phone] Ronald Mills MD 240 [facility] [address] [place] [address] documented as of this encounter Visit Diagnoses Not on filedocumented in this encounter Additional Health Concerns Infection Onset Date Last Indicated Resolved Time COVID-19 03/05/2022 03/05/2022 03/15/2022 7:18 PM EDT documented as of this encounter Care Teams Open Hearth Door Liner Relationship Specialty Start Date End Date Caitlyn Bowie MD 3400 [facility] 1 [place] [address] PCP - General Internal Medicine 05/06/21 Henry Kelly MD Pulmonary Department 175 [facility], [address] [place] [address] Physician Pulmonary Disease 09/06/17 06/22/20 documented as of this encounter
--- OUTSIDE RECORDS SUMMARY | 2025-03-12 16:32 | XMS_ITS | Encounter Summary ---
Author Organization [facility] and [facility] Address [address] [place] [address] Care Team Providers Care Sleeve Machine Tender Name Role Phone Caitlyn Bowie MD Primary Care Provider +1- [phone] Encounter Details Date Type Department Care Team (Late st Contact Info) Description 07/27/2016 Scanned Document Thoracic Oncology Program at [address] [address] Suzy Kong MD [address] [place] [address] Social History Tobacco Use Types Packs/Day [...] PM EDT Telemedicine Cancer Center at [address] [place], [place] [phone] Ronald Mills MD 240 [facility] [address] [place] [address] documented as of this encounter Visit Diagnoses Not on filedocumented in this encounter Additional Health Concerns Infection Onset Date Last Indicated Resolved Time COVID-19 03/05/2022 03/05/2022 03/15/2022 7:18 PM EDT documented as of this encounter Care Teams Sleeve Machine Tender Relationship Specialty Start Date End Date Caitlyn Bowie MD 34[address] [facility] [address] 1 [place] [address] PCP - General Internal Medicine 05/06/21 Henry Kelly MD Pulmonary Department 175 [facility], [address] [place] [address] Physician Pulmonary Disease 09/06/17 06/22/20 documented as of this encounter
--- OUTSIDE RECORDS SUMMARY | 2025-03-12 16:32 | XMS_ITS | Encounter Summary ---
Author Organization [facility] and [facility] Address [address] [place] [address] Care Team Providers Care Continuing Education Specialist Name Role Phone Caitlyn Bowie MD Primary Care Provider +1- [phone] Encounter Details Date Type Department Care Team (Late st Contact Info) Description 12/16/2016 Scanned Document [facility] Health Information Management [address] [place] [address] External, Provider Social History Tobacco Use Types [...] [facility] 240 [facility] Building [address] [place], [place] [phone] Ronald Mills MD 240 [facility] [address] [place] [address] documented as of this encounter [...] of this encounter Care Teams Continuing Education Specialist Relationship Specialty Start Date End Date Caitlyn Bowie MD 3400 [facility] 1 [place] [address] PCP - General Internal Medicine 05/06/21 Henry Kelly MD Pulmonary Department 175 [facility], [address] [place] [address] Physician Pulmonary Disease 09/06/17 06/22/20 documented as of this encounter
--- OUTSIDE RECORDS SUMMARY | 2025-03-12 16:32 | XMS_ITS | Encounter Summary ---
Author Organization [facility] Address [address] [place] [address] Care Team Providers Care Forensic Technician Name Role Phone Caitlyn Bowie MD Primary Care Provider +1- [phone] Encounter Details Date Type Department Care Team (Late st Contact Info) Description 09/15/2024 Scanned Document INTERFACE DEFAULT [address] [place] [address] System, Provider Not In Social History Tobacco [...] Healthcare Services [facility] 240 [facility] Building [address] [place], [place] [phone] Ronald Mills MD [address] [place] [address] [address] [place] [address] documented as of this encounter [...] as of this encounter Care Teams Forensic Technician Relationship Specialty Start Date End Date Caitlyn Bowie MD [address] [address] PCP - General Internal Medicine 05/06/21 documented as of this encounter
--- OUTSIDE RECORDS SUMMARY | 2025-03-12 16:32 | XMS_ITS | Encounter Summary ---
Author Organization [facility] and [facility] Address [address] [place] [address] Care Team Providers Care Waste Treatment Operator Name Role Phone Caitlyn Bowie MD Primary Care Provider +1- [phone] Encounter Details Date Type Department Care Team (Late st Contact Info) Description 10/23/2024 Scanned Document INTERFACE DEFAULT [address] [place] [address] System, Provider Not In Social History Tobacco [...] [facility] 240 [facility] [address] [place], [place] [phone] Ronald Mills MD [address] [place] [address] [address] [place] [address] documented as of this encounter [...] as of this encounter Care Teams Waste Treatment Operator Relationship Specialty Start Date End Date Caitlyn Bowie MD [address] [address] PCP - General Internal Medicine 05/06/21 documented as of this encounter
--- OUTSIDE RECORDS SUMMARY | 2025-03-12 16:32 | XMS_ITS | Encounter Summary ---
Author Organization [facility] and [facility] Address [address] [place] [address] Care Team Providers Care Buncher Machine Name Role Phone Caitlny Bowie MD Primary Care Provider +1- [phone] Encounter Details Date Type Department Care Team (Late st Contact Info) Description 08/08/2024 Scanned Document INTERFACE DEFAULT [address] [place] [address] System, Provider Not In Social History Tobacco [...] Center at [facility] 240 [facility] Building [address] [place], [place] [phone] Ronald Mills MD [address] [place] [address] [address] [place] [address] documented as of this encounter [...] documented as of this encounter Care Teams Buncher Machine Relationship Specialty Start Date End Date Caitlyn Bowie MD [address] [address] PCP - General Internal Medicine 05/06/21 documented as of this encounter
--- OUTSIDE RECORDS SUMMARY | 2025-03-12 16:32 | XMS_ITS | Encounter Summary ---
Author Organization [facility] and [facility] Address [address] [place] [address] Care Team Providers Care Cognos Administrator Name Role Phone Caitlyn Bowie MD Primary Care Provider +1- [phone] Encounter Details Date Type Department Care Team (Late st Contact Info) Description 01/02/2019 Scanned Document [facility] Health Information Management [address] [place] [address] External, Provider Social History Tobacco Use Types [...] [facility] 240 [facility] Building [address] [place] [address] Ronald Mills MD [address] [place] [address] [address] [place] [address] documented as of this encounter [...] as of this encounter Care Teams Cognos Administrator Relationship Specialty Start Date End Date Caitlyn Bowie MD 3400 [facility] 1 [place] [address] PCP - General Internal Medicine 05/06/21 Henry Kelly MD Pulmonary Department 175 [facility], [address] [place] [address] Physician Pulmonary Disease 09/06/17 06/22/20 documented as of this encounter
--- OUTSIDE RECORDS SUMMARY | 2025-03-12 16:32 | XMS_ITS | Encounter Summary ---
Author Organization [facility] and [facility] Address [address] [place] [address] Care Team Providers Care Employee Benefits Insurance Agent Name Role Phone Caitlyn Bowie MD Primary Care Provider +1- [phone] Encounter Details Date Type Department Care Team (Late st Contact Info) Description 12/14/2016 Scanned Document [facility] Health Information Management [address] [place] [address] External, Provider Social History Tobacco Use Types [...] at [facility] 240 [facility] Building [address] [place], [place] [phone] Ronald Mills MD 240 [facility] [address]1 [place] [address] documented as of this encounter Visit Diagnoses Not on filedocumented in this encounter Additional Health Concerns Infection Onset Date Last Indicated Resolved Time COVID-19 03/05/2022 03/05/2022 03/15/2022 7:18 PM EDT documented as of this encounter Care Teams Employee Benefits Insurance Agent Relationship Specialty Start Date End Date Caitlyn Bowie MD 3400 [facility] 1 [place] [address] PCP - General Internal Medicine 05/06/21 Henry Kelly MD Pulmonary Department 175 [facility], [address] [place] [address] Physician Pulmonary Disease 09/06/17 06/22/20 documented as of this encounter
--- OUTSIDE RECORDS SUMMARY | 2025-03-12 16:32 | XMS_ITS | Encounter Summary ---
Author Organization [facility] Address [address] [place] [address] Phone Care Team Providers Care Bond Analyst Name Role Phone Caitlyn Bowie MD Primary Care Provider +1- [phone] Encounter Details Date Type Department Care Team (Late st Contact Info) Description 10/01/2024 Documentation Only [facility] [address] [place] [address] Ron Taylor [place] [address] [place] [address] Social History Tobacco Use Types [...] Visit [facility] [address] [place] [address] Rubén Ashraf MD [address] [place] [address] [place] [address] documented as of this encounter Visit Diagnoses Not on filedocumented in this encounter Care Teams Bond Analyst Relationship Specialty Start Date End Date Caitlyn Bowie MD 3400 [place], [place] PCP - General Internal Medicine 09/24/24 documented as of this encounter
--- OUTSIDE RECORDS SUMMARY | 2025-03-12 16:32 | XMS_ITS | Encounter Summary ---
Author Organization [facility] and [facility] Address [address] [place] [address] Care Team Providers Care Records Management Director Name Role Phone Caitlyn Bowie MD Primary Care Provider +1- [phone] Encounter Details Date Type Department Care Team (Late st Contact Info) Description 12/28/2018 Scanned Document [facility] Health Information Management [address] [place] [address] External, Provider Social History Tobacco Use Types [...] [facility] 240 [facility] [address] [place] [address] Ronald Mills MD [address] [place] [address] [address] [place] [address] documented as of [...] as of this encounter Care Teams Records Management Director Relationship Specialty Start Date End Date Caitlyn Bowie MD 3400 [facility] Max 1 [place] [address] PCP - General Internal Medicine 05/06/21 Henry Kelly MD Pulmonary Department 175 [facility], [address] [place] [address] Physician Pulmonary Disease 09/06/17 06/22/20 documented as of this encounter
--- OUTSIDE RECORDS SUMMARY | 2025-03-12 16:32 | XMS_ITS | Encounter Summary ---
Author Organization [facility] and [facility] Address [address] [place] [address] Care Team Providers Care Obstetrician And Gynaecologist Name Role Phone Caitlyn Bowie MD Primary Care Provider +1- [phone] Encounter Details Date Type Department Care Team (Late st Contact Info) Description 04/19/2024 Scanned Document INTERFACE DEFAULT [address] [place] [address] System, Provider Not In Social History Tobacco [...] [facility] 240 [facility] Building [address] [place], [place] [phone] Ronald Mills MD [address] [place] [address] [address] [place] [address] documented as of this encounter [...] documented as of this encounter Care Teams Obstetrician And Gynaecologist Relationship Specialty Start Date End Date Caitlyn Bowie MD [address] [address] PCP - General Internal Medicine 05/06/21 documented as of this encounter
--- OUTSIDE RECORDS SUMMARY | 2025-03-12 16:32 | XMS_ITS | Encounter Summary ---
Author Organization [facility] and [facility] Address [address] [place] [address] Care Team Providers Care Melt Supervisor Name Role Phone Caitlyn Bowie MD Primary Care Provider +1- [phone] Encounter Details Date Type Department Care Team (Late st Contact Info) Description 02/08/2016 Scanned Document [facility] Health Information Management [address] [place] [address] External, Provider Social History Tobacco Use Types [...] [facility] 240 [facility] Building [address] [place], [place] [phone] Ronald Mills MD 240 [facility] A1 [place] [address] documented as of this encounter Visit Diagnoses Not on filedocumented in this encounter Additional Health Concerns Infection Onset Date Last Indicated Resolved Time COVID-19 03/05/2022 03/05/2022 03/15/2022 7:18 PM EDT documented as of this encounter Care Teams Melt Supervisor Relationship Specialty Start Date End Date Caitlyn Bowie MD 3400 [facility] 1 [place] [address] PCP - General Internal Medicine 05/06/21 Henry Kelly MD Pulmonary Department 175 [facility], [address] [place] [address] Physician Pulmonary Disease 09/06/17 06/22/20 documented as of this encounter
--- OUTSIDE RECORDS SUMMARY | 2025-03-12 16:32 | XMS_ITS | Encounter Summary ---
Author Organization [facility] Address [address] [place] [address] Care Team Providers Care Scrap Drop Crane Operator Name Role Phone Caitlyn Bowie MD Primary Care Provider +1- [phone] Encounter Details Date Type Department Care Team (Late st Contact Info) Description 06/17/2016 Scanned Document [facility] Health Information Management [address] [place] [address] External, Provider Social History Tobacco Use Types [...] [facility] 240 [facility] Building [address] [place], [place] [phone] Ronald Mills MD 240 [facility] A1 [place] [address] documented as of this encounter Visit Diagnoses Not on filedocumented in this encounter Additional Health Concerns Infection Onset Date Last Indicated Resolved Time COVID-19 03/05/2022 03/05/2022 03/15/2022 7:18 PM EDT documented as of this encounter Care Teams Scrap Drop Crane Operator Relationship Specialty Start Date End Date Caitlyn Bowie MD 3400 [facility] 1 [place] [address] PCP - General Internal Medicine 05/06/21 Henry Kelly MD Pulmonary Department 175 [facility], [address] [place] [address] Physician Pulmonary Disease 09/06/17 06/22/20 documented as of this encounter
--- OUTSIDE RECORDS SUMMARY | 2025-03-12 16:32 | XMS_ITS | Encounter Summary ---
Author Organization [facility] and [facility] Address [address] [place] [address] Care Team Providers Care Grain Inspector Name Role Phone Caitlyn Bowie MD Primary Care Provider +1- [phone] Encounter Details Date Type Department Care Team (Late st Contact Info) Description 10/10/2016 Scanned Document [facility] Health Information Management [address] [place] [address] External, Provider Social History Tobacco Use Types [...] [facility] at [facility] 240 [facility] Building [address] [place], [place] [phone] Ronald Mills MD 240 [facility] A1 [place] [address] documented as of this encounter Visit Diagnoses Not on filedocumented in this encounter Additional Health Concerns Infection Onset Date Last Indicated Resolved Time COVID-19 03/05/2022 03/05/2022 03/15/2022 7:18 PM EDT documented as of this encounter Care Teams Grain Inspector Relationship Specialty Start Date End Date Caitlyn Bowie MD 3400 [facility] 1 [place] [address] PCP - General Internal Medicine 05/06/21 Henry Kelly MD Pulmonary Department 175 [facility], [address] [place] [address] Physician Pulmonary Disease 09/06/17 06/22/20 documented as of this encounter
--- OUTSIDE RECORDS SUMMARY | 2025-03-12 16:32 | XMS_ITS | Encounter Summary ---
Author Organization [facility] Address [address] [place] [address] Care Team Providers Care Solution Spec Name Role Phone Caitlyn Bowie MD Primary Care Provider +1- [phone] Encounter Details Date Type Department Care Team (Late st Contact Info) Description 04/23/2024 Scanned Document INTERFACE DEFAULT [address] [place] [address] System, Provider Not In Social History Tobacco [...] [facility] at [facility] 240 [facility] Building [address] [place], [place] [phone] Ronald Mills MD [address] [place] [address] [address] [place] [address] documented as of this encounter [...] as of this encounter Care Teams Solution Spec Relationship Specialty Start Date End Date Caitlyn Bowie MD [address] [address] PCP - General Internal Medicine 05/06/21 documented as of this encounter
--- OUTSIDE RECORDS SUMMARY | 2025-03-12 16:32 | XMS_ITS | Encounter Summary ---
Author Organization [facility] and [facility] Address [address] [place] [address] Care Team Providers Care Clerk Rating Name Role Phone Caitlyn Bowie MD Primary Care Provider +1- [phone] Encounter Details Date Type Department Care Team (Late st Contact Info) Description 04/04/2016 Scanned Document [facility] Health Information Management [address] [place] [address] External, Provider Social History Tobacco Use Types [...] [facility] 240 [facility] Building [address] [place], [place] [phone] Ronald Mills MD 240 [facility] Max [address] [place] [address] documented as of this encounter Procedures Procedure Name Priority Date/Time Associated Diagnosis Comments LAB SCAN Routine 04/04/2016 documented in this encounter Results * Lab Scan (04/04/2016) Blood specimen (specimen) us Provider External LAB BLOOD ORDERABLES Final Res ult [facility] documented in this encounter Visit Diagnoses Not on filedocumented in this encounter Additional Health Concerns Infection Onset Date Last Indicated Resolved Time COVID-19 03/05/2022 03/05/2022 03/15/2022 7:18 PM EDT documented as of this encounter Care Teams Clerk Rating Relationship Specialty Start Date End Date Caitlyn Bowie MD 3400 [facility] 1 [place] [address] PCP - General Internal Medicine 05/06/21 Henry Kelly MD Pulmonary Department 175 [facility], [address] [place] [address] Physician Pulmonary Disease 09/06/17 06/22/20 documented as of this encounter
--- OUTSIDE RECORDS SUMMARY | 2025-03-12 16:32 | XMS_ITS | Encounter Summary ---
Author Organization [facility] and [facility] Address 20 [place] [address] Care Team Providers Care Semiautomatic Stitcher Operator Name Role Phone Caitlyn Bowie MD Primary Care Provider +1- [phone] Encounter Details Date Type Department Care Team (Late st Contact Info) Description 07/27/2016 Scanned Document Thoracic Oncology Program at [address] [address] Suzy Kong MD [address] [place] [address] Social History Tobacco Use Types Packs/Day [...] PM EDT Telemedicine Cancer Center at [address] [place], [place] [phone] Ronald Mills MD 240 [facility] [address] [place] [address] documented as of this encounter Visit Diagnoses Not on filedocumented in this encounter Additional Health Concerns Infection Onset Date Last Indicated Resolved Time COVID-19 03/05/2022 03/05/2022 03/15/2022 7:18 PM EDT documented as of this encounter Care Teams Semiautomatic Stitcher Operator Relationship Specialty Start Date End Date Caitlyn Bowie MD 3400 [facility] Max 1 [place] [address] PCP - General Internal Medicine 05/06/21 Henry Kelly MD Pulmonary Department 175 [facility], [address] [place] [address] Physician Pulmonary Disease 09/06/17 06/22/20 documented as of this encounter
--- OUTSIDE RECORDS SUMMARY | 2025-03-12 16:32 | XMS_ITS | Clinical Summary ---
Author Organization [facility] Address [address] [place] [address] Phone Care Team Providers Care Telegraph Mechanic Name Role Phone Caitlyn Bowie MD [...] (12/25/2021 4:22 PM EDT): Followed closely by beef lugger-Dr. Ronald Mills at [facility] hematology- advised to continue Coumadin anticoagulation [...] (09/09/2021 10:42 PM EST): Followed closely by beef lugger-Dr. Ronald Mills at [facility] hematology- last seen on 08/05/2021 and [...] anticoagulation clinic to keep INR at 1.5-2.0. custodial current use of systemic steroids 09/09 Assessment & Plan (12/10/2021 10:38 AM EDT): Carefully continue alternating low dosing as prescribed by her carpet cleaning technician and consider gentle taper when ready. Daily [...] alternating low dosing as prescribed by her carpet cleaning technician and consider gentle taper when ready. Daily [...] AM EDT Office Visit [facility] [address] [place] [address] Anna [place] MD Acquired hypothyroidism (Primary Dx); Hyperparathyroidism; Age-related osteoporosis without current pathological fracture; Adrenal insufficiency 01/12/2025 [facility] [address] [place] [address] Anna Ellis MD Medication Refill from Last [...] 11:40 AM EST Office Visit [facility] [address] [place] [address] Anna Ellis MD [address] [place] [address] [email or web address] Health Maintenance Due Date Last Done Comments [...] MD LAB BLOOD ORDERABLES F inal Result [address] [address] from Last 3 Months or Most Recently Relevant to Health Maintenance Insurance MEDICARE PART A & B [facility] MEDEX SUPPLEMENT [facility] SAFETY NET FULL [facility] MEDICARE [facility] A & B [facility] MEDEX SUPPLEMENT [facility] NET FULL [facility] MEDICARE PART A & B [place] [facility] MEDEX SUPPLEMENT [facility] NET FULL [facility] MEDICARE PART A & B [facility] MEDEX SUPPLEMENT [facility] NET FULL [facility] MEDICARE PART A & B [facility] MEDEX SUPPLEMENT [facility] SAFETY NET FULL [facility] MEDICARE PART A & B [facility] MEDEX SUPPLEMENT [facility] & B [facility] MEDEX SUPPLEMENT [facility] & B Member Subscriber Plan / Payer (Ef fective 1999-Present) Name:Helena, Jovana J Member ID:[id number] Relation to Subscriber:Self Name:Jovana Malik Subscriber ID:[id number] Payer ID:[id number] Group ID:Not on file Type:Medicare Address: [facility] [address] [place] [address] [place] [address] [facility] MEDEX SUPPLEMENT HEALTH SAFETY NET FULL [facility] MEDICARE PART A & B [facility] MEDEX SUPPLEMENT [facility] NET FULL [facility] Care Teams Telegraph Mechanic Relationship Specialty Start Date End Date Caitlyn Bowie MD 3400 [place], [place] [phone] PCP - General Internal Medicine 09/09/21 Additional Source Comments The information contained in this document represents components of the legal health record. It is not the complete legal health record.[facility]
--- OUTSIDE RECORDS SUMMARY | 2025-03-12 16:32 | XMS_ITS | Encounter Summary ---
Author Organization [facility] Address 20 [place] [address] Care Team Providers Care Cuprous Chloride Helper Name Role Phone Caitlyn Bowie MD Primary Care Provider +1- [phone] Reason for Referral * Imaging (Routine) - Closed Specialty Diagnoses / Procedures Referred By Contac t Referred To Contact Procedures NM Lung [facility]ilation Per[facility] External, Provider Referral ID Status Reason Start Date Expiration Date Visits Re quested Visits Authorized [id number] Closed 08/22/2016 08/22/2017 4 4 Encounter Details Date Type Department Care Team (Late st Contact Info) Description 08/22/2016 Scanned Document Thoracic Oncology Program at [address] [address] External, Provider Social History Tobacco Use Types [...] 4:00 PM EDT Telemedicine Cancer Center at [address] [place] [address] Ronald Mills MD [address] [place] [address] Rd [address] [place] [phone] documented as of this encounter Procedures Procedure [...] REPORTS Final Result Performing Organization Address [facility] Co de Phone Number [facility] * CT Result Scan (07/27/2016) us Provider External IMG SCAN REPORTS Final Result Performing Organization Address [facility] Co de Phone Number [facility] * Cardiac EKG Result Scan (07/27/2016) us Provider External CV CARDIAC REPORT (CVR) Final Result Performing Organization Address [facility] Co de Phone Number [facility] * CT Result Scan (07/27/2016) us Provider External IMG SCAN REPORTS Final Result Performing Organization Address [facility] Co de Phone Number [facility] * Lab Scan (07/27/2016) Blood specimen (specimen) us Provider External LAB BLOOD ORDERABLES Final Res ult Performing Organization Address [facility] Co de Phone Number [facility] * NM Lung Ventilation Perfusion ([facility]) (07/27/2016) Anatomical Region Laterality Modality Chest, Lung Nuclear Medicine us Provider External IMG NM ORDERABLES Final Result documented in this encounter Visit Diagnoses Not on filedocumented in this encounter Additional Health Concerns Infection Onset Date Last Indicated Resolved Time COVID-19 03/05/2022 03/05/2022 03/15/2022 7:18 PM EDT documented as of this encounter Care Teams Cuprous Chloride Helper Relationship Specialty Start Date End Date Caitlyn Bowie MD 3400 [facility] 1 [place] [address] PCP - General Internal Medicine 05/06/21 Henry Kelly MD Pulmonary Department 175 [facility], [address] [place] [address] Physician Pulmonary Disease 09/06/17 06/22/20 documented as of this encounter
== END 2025-03-12 16:30 | disposition home or self-care (01) ==
PROVIDERS: Physician Assistant Medical; Emergency Provider Emergency Medicine; PCP Internal Medicine
DX: R60.9 Edema, unspecified (principal); R07.2 Precordial pain; I11.0 Hypertensive heart disease with heart failure; I50.32 Chronic diastolic (congestive) heart failure; J96.10 Chronic respiratory failure, unspecified whether with hypoxia or hypercapnia; D68.2 Hereditary deficiency of other clotting factors; Z86.718 Personal history of other venous thrombosis and embolism; Z79.01 Long term (current) use of anticoagulants; Z79.899 Other long term (current) drug therapy
CPT/HCPCS: 36415; 71046; 80053; 83735; 83880; 84484; 85025; 85610; 87637; 93005; 93970; 99283; 99284

== ENCOUNTER → 2025-03-12 13:13 | Outpatient (BNV) | payer MEDICARE, SELFPAY | PROVIDERS: Emergency Provider Emergency Medicine; PCP Internal Medicine; Visit Provider Radiology Diagnostic Radiology | DX: R22.43 Localized swelling, mass and lump, lower limb, bilateral (principal); J90 Pleural effusion, not elsewhere classified | CPT/HCPCS: 71046; 93970 ==

== ENCOUNTER → 2025-03-12 13:16 | Outpatient (BNV) | payer MEDICARE, SELFPAY | PROVIDERS: Emergency Provider Emergency Medicine; PCP Internal Medicine; Visit Provider Internal Medicine Cardiovascular Disease | DX: I45.2 Bifascicular block (principal) | CPT/HCPCS: 93010 ==

== ENCOUNTER 2025-03-17 11:09 | Outpatient (REF) | payer MEDICARE, SELFPAY ==
[2025-03-17 12:39] LABS: Appearance Urine Clear; Glucose Urine UA Negative (Negative); PH 7.5 (5.0-9.0); Specific Gravity - Urine 1.010 (1.005-1.025)
--- OUTSIDE RECORDS SUMMARY | 2025-03-17 13:45 | XMS_ITS | Encounter Summary ---
Author Organization [facility] and [facility] Address [address] [place] [address] Care Team Providers Care Gas Station Cashier Name Role Phone Caitlyn Bowie MD Primary Care Provider +1- [phone] Encounter Details Date Type Department Care Team (Late Contact Info) Description 09/16/2020 Scanned Document [facility] Health Information Management [address] [place] [address] External, Provider Social History Tobacco Use Types [...] [facility] 240 [facility] Building [address] [place], [place] [phone] Ronald Mills MD [address] [place] [address] [address] [place] [address] documented as of this encounter [...] as of this encounter Care Teams Gas Station Cashier Relationship Specialty Start Date End Date Caitlyn Bowie MD [address] [address] PCP - General Internal Medicine 05/06/21 documented as of this encounter
--- OUTSIDE RECORDS SUMMARY | 2025-03-17 13:45 | XMS_ITS | Encounter Summary ---
Author Organization [facility] and [facility] Address [address] [place] [address] Care Team Providers Care Cloud Developer Name Role Phone Caitlyn Bowie MD Primary Care Provider +1- [phone] Encounter Details Date Type Department Care Team (Late st Contact Info) Description 09/17/2020 Scanned Document [facility] Health Information Management [address] [place] [address] External, Provider Social History Tobacco Use Types [...] [facility] 240 [facility] Building [address] [place], [place] [id number] Ronald Mills MD [address] [place] [address] [address] [place] [address] documented as of this encounter [...] as of this encounter Care Teams Cloud Developer Relationship Specialty Start Date End Date Caitlyn Bowie MD [address] [address] PCP - General Internal Medicine 05/06/21 documented as of this encounter
--- OUTSIDE RECORDS SUMMARY | 2025-03-17 13:45 | XMS_ITS | Encounter Summary ---
Author Organization [facility] and [facility] Address [address] [place] [address] Care Team Providers Care Potato Grader Name Role Phone Caitlyn Bowie MD Primary Care Provider +1- [phone] Encounter Details Date Type Department Care Team (Late st Contact Info) Description 05/14/2020 Documentation Hematology Program at [address] [address] Taya Nuno RN Social History Tobacco Use [...] PM EDT Telemedicine Cancer Center at [address] [place] [address] Ronald Mills MD [address] [place] [address] documented as of this encounter Visit Diagnoses Not on filedocumented in this encounter Additional Health Concerns Infection Onset Date Last Indicated Resolved Time COVID-19 03/05/2022 03/05/2022 03/15/2022 7:18 PM EDT Assessment Noted Time PHQ-9 Depression Total Score: 2 11/07/19 19 2:06 PM EDT documented as of this encounter Care Teams Potato Grader Relationship Specialty Start Date End Date Caitlyn Bowie MD 3400 [facility] [address] 1 [place] [address] PCP - General Internal Medicine 05/06/21 Henry Kelly MD Pulmonary Department 175 [facility], [address] [place] [address] Physician Pulmonary Disease 09/06/17 06/22/20 documented as of this encounter
--- OUTSIDE RECORDS SUMMARY | 2025-03-17 13:45 | XMS_ITS | Patient Health Record ---
Author Organization [facility] Address [address] [place] [address] Care Team Providers Care Field Captain Name Role Phone Shruti Bowieberly Primary Care Provider Cristian Fountain Unavailable [phone] Allergies Allergen (clinical drug ingredient) Drug/Non Drug [...] Status W/U Status Risk Notes Problem Diverticulitis (150500886) Diverticulitis (K57.92) Active confirmed Problem Irritable bowel syndrome characterized by constipation (181373661) Irritable bowel syndrome with constipation (K58.9) Active confirmed Problem Gastroesophageal reflux disease (056439498) GERD (gastroesophageal reflux disease) (K21.9) Active confirmed Plan Of Treatment No Information Insurance Providers Payer Name Payer Address Payer Phone Subscriber Number Group Number Insured Name Patient Relationship to Insured Coverage Start Date Coverage End Date MEDICARE OF [place] [address] [place] [address] [id number] CINDA WATSON Self - patient is the insured [employer] ATTN CLAIMS [address] [place] [address] [id number] CINDA WATSON Self - patient is the insured Medical (General) History Medical History History ICD Code GA-04/2021-sees Dr. 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 Gomes Pneumomias Hypothyroidism Surgical History Surgery Date(Month/Year) Tonsils and adenoids BOLA Lung cancer-Left lower lobectomy at [facility], XRT, Chemo 2008
--- OUTSIDE RECORDS SUMMARY | 2025-03-17 13:45 | XMS_ITS | Encounter Summary ---
Author Organization [facility] and [facility] Address [address] [place] [address] Care Team Providers Care Reconciling Clerk Name Role Phone Caitlyn Bowie MD Primary Care Provider +1- [phone] Encounter Details Date Type Department Care Team (Late st Contact Info) Description 02/20/2017 Scanned Document [facility] Health Information Management [address] [place] [address] External, Provider Social History Tobacco Use Types [...] [facility] Building [address] [place], [place] [id number] Ronald Mills MD 240 [facility] Max [address] [place] [address] documented as of this encounter [...] documented as of this encounter Care Teams Reconciling Clerk Relationship Specialty Start Date End Date Caitlyn Bowie MD 3400 [facility] [address] 1 [place] [address] PCP - General Internal Medicine 05/06/21 Henry Kelly MD Pulmonary Department 175 [facility], [address] [place] [address] Physician Pulmonary Disease 09/06/17 06/22/20 documented as of this encounter
--- OUTSIDE RECORDS SUMMARY | 2025-03-17 13:45 | XMS_ITS | Encounter Summary ---
Author Organization [facility] and [facility] Address [address] [place] [address] Care Team Providers Care Call Center Professional Name Role Phone Caitlyn Bowie MD Primary Care Provider +1- [phone] Encounter Details Date Type Department Care Team (Late st Contact Info) Description 02/02/2017 Scanned Document [facility] Health Information Management [address] [place] [address] External, Provider Social History Tobacco Use Types [...] [facility] 240 [facility] Building [address] [place], [place] [id number] Ronald Mills MD 240 [facility] [address]1 [place] [address] documented as of this encounter Visit Diagnoses Not on filedocumented in this encounter Additional Health Concerns Infection Onset Date Last Indicated Resolved Time COVID-19 03/05/2022 03/05/2022 03/15/2022 7:18 PM EDT documented as of this encounter Care Teams Call Center Professional Relationship Specialty Start Date End Date Caitlyn Bowie MD 3400 [facility] 1 [place] [address] PCP - General Internal Medicine 05/06/21 Henry Kelly MD Pulmonary Department 175 [facility], [address] [place] [address] Physician Pulmonary Disease 09/06/17 06/22/20 documented as of this encounter
--- OUTSIDE RECORDS SUMMARY | 2025-03-17 13:45 | XMS_ITS | Encounter Summary ---
Author Organization [facility] and [facility] Address [address] [place] [address] Care Team Providers Care Circulation Tender Name Role Phone Caitlyn Bowie MD Primary Care Provider +1- [phone] Encounter Details Date Type Department Care Team (Late st Contact Info) Description 02/20/2017 Scanned Document [facility] Health Information Management [address] [place] [address] External, Provider Social History Tobacco Use Types [...] [facility] Building [address] [place], [place] [phone] Ronald Mills MD 240 [facility] [address] [place] [address] documented as of this encounter [...] documented as of this encounter Care Teams Circulation Tender Relationship Specialty Start Date End Date Caitlyn Bowie MD 3400 [facility] 1 [place] [address] PCP - General Internal Medicine 05/06/21 Henry Kelly MD Pulmonary Department 175 [facility], [address] [place] [address] Physician Pulmonary Disease 09/06/17 06/22/20 documented as of this encounter
--- OUTSIDE RECORDS SUMMARY | 2025-03-17 13:45 | XMS_ITS | Encounter Summary ---
Author Organization [facility] and [facility] Address [address] [place] [address] Care Team Providers Care Sample Preparation Supervisor Name Role Phone Caitlyn Bowie MD Primary Care Provider +1- [phone] Encounter Details Date Type Department Care Team (Late st Contact Info) Description 09/15/2020 Scanned Document INTER[facility] DEFAULT [address] [place] [address] System, Provider Not In Social History Tobacco [...] [facility] 240 [facility] Building [address] [place] [address] Ronald Mills MD [address] [place] [address] [address] [place] [address] documented as of this encounter Visit Diagnoses Not on filedocumented in this encounter Additional Health Concerns Infection Onset Date Last Indicated Resolved Time COVID-19 03/05/2022 03/05/2022 03/15/2022 7:18 PM EDT Assessment Noted Time PHQ-9 Depression Total Score: 2 11/07/19 19 2:06 PM EDT documented as of this encounter Care Teams Sample Preparation Supervisor Relationship Specialty Start Date End Date Caitlyn Bowie MD [address] [address] PCP - General Internal Medicine 05/06/21 documented as of this encounter
--- OUTSIDE RECORDS SUMMARY | 2025-03-17 13:45 | XMS_ITS | Encounter Summary ---
Author Organization [facility] and [facility] Address [address] [place] [address] Care Team Providers Care Stress Test Technician Name Role Phone Caitlyn Bowie MD Primary Care Provider +1- [phone] Encounter Details Date Type Department Care Team (Late st Contact Info) Description 07/08/2020 Scanned Document [facility] Health Information Management [address] [place] [address] External, Provider Social History Tobacco Use Types [...] 240 [facility] Building [address] [place], [place] [phone] Ronald Mills MD [address] [place] [address] [address] [place] [address] documented as of this encounter [...] documented as of this encounter Care Teams Stress Test Technician Relationship Specialty Start Date End Date Caitlyn Bowie MD [address] [address] PCP - General Internal Medicine 05/06/21 documented as of this encounter
--- OUTSIDE RECORDS SUMMARY | 2025-03-17 13:45 | XMS_ITS | Encounter Summary ---
Author Organization [facility] and [facility] Address [address] [place] [address] Care Team Providers Care Gun Stocker Name Role Phone Caitlyn Bowie MD Primary Care Provider +1- [phone] Encounter Details Date Type Department Care Team (Late st Contact Info) Description 05/19/2020 Scanned Document Cancer Center at [address] [address] External, Provider Social History Tobacco Use Types [...] [facility] 240 [facility] Building [address] [place], [place] [phone] Ronald Mills MD [address] [place] [address] [address] [place] [address] documented as of [...] as of this encounter Care Teams Gun Stocker Relationship Specialty Start Date End Date Caitlyn Bowie MD 3400 [facility] 1 [place] [address] PCP - General Internal Medicine 05/06/21 Henry Kelly MD Pulmonary Department 175 [facility], [address] [place] [address] Physician Pulmonary Disease 09/06/17 06/22/20 documented as of this encounter
--- OUTSIDE RECORDS SUMMARY | 2025-03-17 13:45 | XMS_ITS | Encounter Summary ---
Author Organization [facility] and [facility] Address [address] [place] [address] Care Team Providers Care Elementary Education Tutor Name Role Phone Caitlyn Bowie MD Primary Care Provider +1- [phone] Encounter Details Date Type Department Care Team (Late st Contact Info) Description 09/15/2020 Scanned Document Cancer Center at [address] [address] External, Provider Social History Tobacco Use Types [...] [facility] 240 [facility] Building [address] [place], [place] [phone] Ronald Mills MD [address] [place] [address] [address] [place] [address] documented as of [...] as of this encounter Care Teams Elementary Education Tutor Relationship Specialty Start Date End Date Caitlyn Bowie MD [address] [address] PCP - General Internal Medicine 05/06/21 documented as of this encounter
--- OUTSIDE RECORDS SUMMARY | 2025-03-17 13:45 | XMS_ITS | Encounter Summary ---
Author Organization [facility] and [facility] Address [address] [place] [address] Care Team Providers Care Oceanographer Assistant Name Role Phone Caitlyn Bowie MD Primary Care Provider +1- [phone] Encounter Details Date Type Department Care Team (Late Contact Info) Description 09/18/2020 Scanned Document [facility] Health Information Management [address] [place] [address] External, Provider Social History Tobacco Use Types [...] [facility] Building [address] [place], [place] [phone] Ronald Mills MD [address] [place] [address] [address] [place] [address] documented as of this encounter [...] documented as of this encounter Care Teams Oceanographer Assistant Relationship Specialty Start Date End Date Caitlyn Bowie MD [address] [address] PCP - General Internal Medicine 05/06/21 documented as of this encounter
--- OUTSIDE RECORDS SUMMARY | 2025-03-17 13:46 | XMS_ITS | Encounter Summary ---
Author Organization [facility] and [facility] Address [address] [place] [address] Care Team Providers Care At Risk Specialist Name Role Phone Caitlyn Bowie MD Primary Care Provider +1- [phone] Encounter Details Date Type Department Care Team (Late st Contact Info) Description 04/26/2017 Scanned Document Cardiovascular Medicine at [address] [place] [address] Norma Renee MD [address] [place] [phone] Social History Tobacco Use Types Packs/Day Years [...] at [facility] 240 [facility] Building [address] [place], [place] [phone] Ronald Mills MD [address] [place] [address] [address]1 [place] [address] documented as of this encounter Visit Diagnoses Not on filedocumented in this encounter Additional Health Concerns Infection Onset Date Last Indicated Resolved Time COVID-19 03/05/2022 03/05/2022 03/15/2022 7:18 PM EDT documented as of this encounter Care Teams At Risk Specialist Relationship Specialty Start Date End Date Caitlyn Bowie MD 3400 [facility] 1 [place] [address] PCP - General Internal Medicine 05/06/21 Henry Kelly MD Pulmonary Department 175 [facility], [address] [place] [address] Physician Pulmonary Disease 09/06/17 06/22/20 documented as of this encounter
--- OUTSIDE RECORDS SUMMARY | 2025-03-17 13:46 | XMS_ITS | Encounter Summary ---
Author Organization [facility] and [facility] Address [address] [place] [address] Care Team Providers Care Mushroom Spawn Maker Name Role Phone Caitlyn Bowie MD Primary Care Provider +1- [phone] Encounter Details Date Type Department Care Team (Late st Contact Info) Description 09/07/2020 Scanned Document Cardiovascular Medicine at [address] [place] [phone] Norma Renee MD [address] [place] [phone] Social History Tobacco Use Types Packs/Day Years [...] PM EDT Telemedicine Cancer Center at [address] [place] [address] Ronald Mills MD [address] [place] [address] [address] [place] [address] documented as of this encounter Visit Diagnoses Not on filedocumented in this encounter Additional Health Concerns Infection Onset Date Last Indicated Resolved Time COVID-19 03/05/2022 03/05/2022 03/15/2022 7:18 PM EDT Assessment Noted Time PHQ-9 Depression Total Score: 2 11/07/19 19 2:06 PM EDT documented as of this encounter Care Teams Mushroom Spawn Maker Relationship Specialty Start Date End Date Caitlyn Bowie MD [address] [address] PCP - General Internal Medicine 05/06/21 documented as of this encounter
--- OUTSIDE RECORDS SUMMARY | 2025-03-17 13:46 | XMS_ITS | Encounter Summary ---
Author Organization [facility] Address 20 [place] [address] Care Team Providers Care Rip/Mould Operator Name Role Phone Caitlyn Bowie MD Primary Care Provider +1- [phone] Encounter Details Date Type Department Care Team (Late st Contact Info) Description 06/21/2012 Abstract Head & Neck Cancers Program at [address] [phone] Mikel Lloyd MD [address] [place] [phone] (Fax) Social History Tobacco Use Types Packs/Day [...] Cancer Center at [facility] 240 [facility] Building [address] [place] [address] Ronald Mills MD 240 [facility] Max [address]1 [place] [address] documented as of this encounter Visit Diagnoses Not on filedocumented in this encounter Additional Health Concerns Infection Onset Date Last Indicated Resolved Time COVID-19 03/05/2022 03/05/2022 03/15/2022 7:18 PM EDT documented as of this encounter Care Teams Rip/Mould Operator Relationship Specialty Start Date End Date Caitlyn Bowie MD 3400 [facility] 1 [place] [address] PCP - General Internal Medicine 05/06/21 Henry Kelly MD Pulmonary Department [address] [place] [address], [address] [place] [address] Physician Pulmonary Disease 09/06/17 06/22/20 documented as of this encounter
--- OUTSIDE RECORDS SUMMARY | 2025-03-17 13:46 | XMS_ITS | Encounter Summary ---
Author Organization [facility] and [facility] Address [address] [place] [address] Care Team Providers Care Blacktop Paver Operator Name Role Phone Caitlyn Bowie MD Primary Care Provider +1- [phone] Encounter Details Date Type Department Care Team (Late st Contact Info) Description 12/16/2016 Scanned Document [facility] Health Information Management [address] [place] [address] External, Provider Social History Tobacco Use Types [...] – [facility] 240 [facility] Building [address] [place], [place] [phone] Ronald Mills MD 240 [facility] Max [address] [place] [address] documented as of this encounter [...] documented as of this encounter Care Teams Blacktop Paver Operator Relationship Specialty Start Date End Date Caitlyn Bowie MD 3400 [facility] 1 [place] [address] PCP - General Internal Medicine 05/06/21 Henry Kelly MD Pulmonary Department 175 [facility], [address] [place] [address] Physician Pulmonary Disease 09/06/17 06/22/20 documented as of this encounter
--- OUTSIDE RECORDS SUMMARY | 2025-03-17 13:46 | XMS_ITS | Encounter Summary ---
Author Organization [facility] and [facility] Address 20 [place] [address] Care Team Providers Care Automatic Mold Sander Name Role Phone Caitlyn Bowie MD Primary Care Provider +1- [phone] Encounter Details Date Type Department Care Team (Late st Contact Info) Description 08/29/2019 Scanned Document Cancer Center at [address] [address] External, Provider Social History Tobacco Use Types [...] [facility] Building [address] [place], [place] [phone] Ronald Mills MD [address] [place] [address] [address]1 [place] [address] documented as of this encounter [...] as of this encounter Care Teams Automatic Mold Sander Relationship Specialty Start Date End Date Caitlyn Bowie MD 3400 [facility] 1 [place] [address] PCP - General Internal Medicine 05/06/21 Henry Kelly MD Pulmonary Department 175 [facility], [address] [place] [address] Physician Pulmonary Disease 09/06/17 06/22/20 documented as of this encounter
--- OUTSIDE RECORDS SUMMARY | 2025-03-17 13:46 | XMS_ITS | Encounter Summary ---
Author Organization [facility] and [facility] Address [address] [place] [address] Care Team Providers Care Electric Razor Assembler Name Role Phone Caitlyn Bowie MD Primary Care Provider +1- [phone] Encounter Details Date Type Department Care Team (Late st Contact Info) Description 12/03/2019 Scanned Document [facility] Health Information Management [address] [place] [address] External, Provider Social History Tobacco Use Types [...] at [facility] 240 [facility] Building [address] [place] [address] Ronald Mills MD [address] [place] [address] [address]1 [place] [address] documented as of this encounter Visit Diagnoses Not on filedocumented in this encounter Additional Health Concerns Infection Onset Date Last Indicated Resolved Time COVID-19 03/05/2022 03/05/2022 03/15/2022 7:18 PM EDT Assessment Noted Time PHQ-9 Depression Total Score: 2 11/07/19 19 2:06 PM EDT documented as of this encounter Care Teams Electric Razor Assembler Relationship Specialty Start Date End Date Caitlyn Bowie MD 3400 [facility] 1 [place] [address] PCP - General Internal Medicine 05/06/21 Henry Kelly MD Pulmonary Department 175 [facility], [address] [place] [address] Physician Pulmonary Disease 09/06/17 06/22/20 documented as of this encounter
--- OUTSIDE RECORDS SUMMARY | 2025-03-17 13:46 | XMS_ITS | Encounter Summary ---
Author Organization [facility] Address [address] [place] [address] Phone Care Team Providers Care Emanations Analysis Technician Name Role Phone Caitlyn Bowie MD Primary Care Provider +1- [phone] Encounter Details Date Type Department Care Team (Late Contact Info) Description 12/10/2024 Documentation Only [facility] [address] [place] [address] Marina Abdi 2[address] [place] [address] Social History Tobacco Use Types [...] Visit [facility] [address] [place] [address] Rubén Ashraf MD [address] [place] [address] [place] [address] documented as of this encounter Visit Diagnoses Not on filedocumented in this encounter Care Teams Emanations Analysis Technician Relationship Specialty Start Date End Date Caitlyn Bowie MD [address] [place], [place] PCP - General Internal Medicine 09/24/24 documented as of this encounter
--- OUTSIDE RECORDS SUMMARY | 2025-03-17 13:46 | XMS_ITS | Encounter Summary ---
Author Organization [facility] and [facility] Address [address] [place] [address] Care Team Providers Care Contaminated Land Consultant Name Role Phone Caitlyn Bowie MD Primary Care Provider +1- [phone] Encounter Details Date Type Department Care Team (Late st Contact Info) Description 11/29/2019 Scanned Document [facility] Health Information Management [address] [place] [address] External, Provider Social History Tobacco Use Types [...] [facility] 240 [facility] Building [address] [employer], [place] [phone] Ronald Mills MD [address] [place] [address] [address] [place] [address] documented as of this encounter [...] documented as of this encounter Care Teams Contaminated Land Consultant Relationship Specialty Start Date End Date Caitlyn Bowie MD 3400 [facility] 1 [place] [address] PCP - General Internal Medicine 05/06/21 Henry Kelly MD Pulmonary Department 175 [facility], [address] [place] [address] Physician Pulmonary Disease 09/06/17 06/22/20 documented as of this encounter
--- OUTSIDE RECORDS SUMMARY | 2025-03-17 13:46 | XMS_ITS | Encounter Summary ---
Author Organization [facility] and [facility] Address [address] [place] [address] Care Team Providers Care Hospital Television Rental Clerk Name Role Phone Caitlyn Bowie MD Primary Care Provider +1- [phone] Encounter Details Date Type Department Care Team (Late st Contact Info) Description 01/22/2020 Scanned Document [facility] for [facility] [address] [place] [address] Kerwin Menjivar MD 260 [facility] 3 [place] [address] Social History Tobacco Use Types [...] PM EDT Telemedicine Cancer Center at [address] [place] [address] Ronald Mills MD 240 [facility] Max A1 [place] [address] documented as of this encounter Visit Diagnoses Not on filedocumented in this encounter Additional Health Concerns Infection Onset Date Last Indicated Resolved Time COVID-19 03/05/2022 03/05/2022 03/15/2022 7:18 PM EDT Assessment Noted Time PHQ-9 Depression Total Score: 2 11/07/19 19 2:06 PM EDT documented as of this encounter Care Teams Hospital Television Rental Clerk Relationship Specialty Start Date End Date Caitlyn Bowie MD [address] [address] PCP - General Internal Medicine 05/06/21 Henry Kelly MD Pulmonary Department [address] [place] [address], [address] [place] [address] Physician Pulmonary Disease 09/06/17 06/22/20 documented as of this encounter
--- OUTSIDE RECORDS SUMMARY | 2025-03-17 13:46 | XMS_ITS | Encounter Summary ---
Author Organization [facility] and [facility] Address [address] [place] [address] Care Team Providers Care Skiver Uppers Or Linings Name Role Phone Caitlyn Bowie MD Primary Care Provider +1- [phone] Encounter Details Date Type Department Care Team (Late st Contact Info) Description 03/01/2017 Scanned Document Onco-Oncology Program at [address] [place] [address] Norma Renee MD [address] [place] [address] 2 [place] [phone] Social History Tobacco Use Types Packs/Day Years [...] PM EDT Telemedicine Cancer Center at [address] [place] [address] Ronald Mills MD 240 [facility] A1 [place] [address] documented as of this encounter Visit Diagnoses Not on filedocumented in this encounter Additional Health Concerns Infection Onset Date Last Indicated Resolved Time COVID-19 03/05/2022 03/05/2022 03/15/2022 7:18 PM EDT documented as of this encounter Care Teams Skiver Uppers Or Linings Relationship Specialty Start Date End Date Caitlyn Bowie MD 3400 [facility] Max 1 [place] [address] PCP - General Internal Medicine 05/06/21 Henry Kelly MD Pulmonary Department 175 [facility], [address] [place] [address] Physician Pulmonary Disease 09/06/17 06/22/20 documented as of this encounter
--- OUTSIDE RECORDS SUMMARY | 2025-03-17 13:46 | XMS_ITS | Encounter Summary ---
Author Organization [facility] and [facility] Address [address] [place] [address] Care Team Providers Care Social Sciences Lecturer Name Role Phone Caitlyn Bowie MD Primary Care Provider +1- [phone] Encounter Details Date Type Department Care Team (Late st Contact Info) Description 12/16/2016 Scanned Document [facility] Health Information Management [address] [place] [address] External, Provider Social History Tobacco Use Types [...] [facility] 240 [facility] Building [address] [place], [place] [phone] Ronald Mills MD 240 [facility] A1 [place] [address] documented as of this encounter Visit Diagnoses Not on filedocumented in this encounter Additional Health Concerns Infection Onset Date Last Indicated Resolved Time COVID-19 03/05/2022 03/05/2022 03/15/2022 7:18 PM EDT documented as of this encounter Care Teams Social Sciences Lecturer Relationship Specialty Start Date End Date Caitlyn Bowie MD 3400 [facility] 1 [place] [address] PCP - General Internal Medicine 05/06/21 Henry Kelly MD Pulmonary Department 175 [facility], [address] [place] [address] Physician Pulmonary Disease 09/06/17 06/22/20 documented as of this encounter
--- OUTSIDE RECORDS SUMMARY | 2025-03-17 13:46 | XMS_ITS | Encounter Summary ---
Author Organization [facility] Address [address] [place] [address] Phone Care Team Providers Care Sewer Builder Name Role Phone Caitlyn Bowie MD Primary Care Provider +1- [phone] Encounter Details Date Type Department Care Team (Late Contact Info) Description 12/10/2024 Documentation Only [facility] [address] [place] [address] Marina Abdi [address] [place] [address] Social History Tobacco Use Types [...] Visit [facility] [address] [place] [address] Rubén Ashraf MD [address] [place] [address] [place] [address] documented as of this encounter Visit Diagnoses Not on filedocumented in this encounter Care Teams Sewer Builder Relationship Specialty Start Date End Date Caitlyn Bowie MD [address] [place], [place] PCP - General Internal Medicine 09/24/24 documented as of this encounter
--- OUTSIDE RECORDS SUMMARY | 2025-03-17 13:46 | XMS_ITS | Encounter Summary ---
Author Organization [facility] and [facility] Address [address] [place] [address] Care Team Providers Care Security Installation Sales Technician Name Role Phone Caitlyn Bowie MD Primary Care Provider +1- [phone] Encounter Details Date Type Department Care Team (Late st Contact Info) Description 07/01/2019 Scanned Document Onco-Oncology Program at [address] [place] [address] Norma Renee MD [address] [place] [address] 2 [place] [address] Social History Tobacco Use [...] 4:00 PM EDT Telemedicine Cancer Center at [address] [place], [place] [address] Ronald Mills MD 240 [facility] A1 [place] [address] documented as of this encounter Visit Diagnoses Not on filedocumented in this encounter Additional Health Concerns Infection Onset Date Last Indicated Resolved Time COVID-19 03/05/2022 03/05/2022 03/15/2022 7:18 PM EDT Assessment Noted Time PHQ-9 Depression Total Score: 2 11/07/19 19 2:06 PM EDT documented as of this encounter Care Teams Security Installation Sales Technician Relationship Specialty Start Date End Date Caitlyn Bowie MD 3400 [facility] 1 [place] [address] PCP - General Internal Medicine 05/06/21 Henry Kelly MD Pulmonary Department 175 [facility], [address] [place] [address] Physician Pulmonary Disease 09/06/17 06/22/20 documented as of this encounter
--- OUTSIDE RECORDS SUMMARY | 2025-03-17 13:46 | XMS_ITS | Encounter Summary ---
Author Organization [facility] and [facility] Address [address] [place] [address] Care Team Providers Care Landfill Gas Technician Name Role Phone Caitlyn Bowie MD Primary Care Provider +1- [phone] Encounter Details Date Type Department Care Team (Late st Contact Info) Description 09/16/2020 Scanned Document [facility] Health Information Management [address] [place] [address] External, Provider Social History Tobacco Use Types [...] at [facility] 240 [facility] Building [address] [place], [place] [phone] Ronald Mills MD [address] [place] [address] [address]1 [place] [address] documented as of this encounter Procedures Procedure [...] documented as of this encounter Care Teams Landfill Gas Technician Relationship Specialty Start Date End Date Caitlyn Bowie MD [address] [address] PCP - General Internal Medicine 05/06/21 documented as of this encounter
--- OUTSIDE RECORDS SUMMARY | 2025-03-17 13:46 | XMS_ITS | Encounter Summary ---
Author Organization [facility] and [facility] Address [address] [place] [address] Care Team Providers Care Operations Director Name Role Phone Caitlyn Bowie MD Primary Care Provider +1- [phone] Encounter Details Date Type Department Care Team (Late Contact Info) Description 09/09/2020 Scanned Document [facility] Health Information Management [address] [place] [address] External, Provider Social History Tobacco Use Types [...] [facility] Building [address] [place], [place] [id number] Ronald Mills MD [address] [place] [address] [address]1 [place] [address] documented as of this encounter [...] as of this encounter Care Teams Operations Director Relationship Specialty Start Date End Date Caitlyn Bowie MD [address] [address] PCP - General Internal Medicine 05/06/21 documented as of this encounter
--- OUTSIDE RECORDS SUMMARY | 2025-03-17 13:46 | XMS_ITS | Encounter Summary ---
Author Organization [facility] Address [address] [place] [address] Care Team Providers Care Hand Cloth Examiner Name Role Phone Caitlyn Bowie MD Primary Care Provider +1- [phone] Encounter Details Date Type Department Care Team (Late st Contact Info) Description 12/16/2016 Scanned Document [facility] Health Information Management [address] [place] [address] External, Provider Social History Tobacco Use Types [...] [facility] [address] [facility] Building [address] [place], [place] [address] Ronald Mills MD 240 [facility] Max [address]1 [place] [address] documented as of this encounter [...] [facility] 1 [place] [address] PCP - General Internal Medicine 05/06/21 Henry Kelly MD Pulmonary Department 175 [facility], [address] [place] [address] Physician Pulmonary Disease 09/06/17 06/22/20 documented as of this encounter
--- OUTSIDE RECORDS SUMMARY | 2025-03-17 13:46 | XMS_ITS | Encounter Summary ---
Author Organization [facility] and [facility] Address [address] [place] [address] Care Team Providers Care Weaving Supervisor Name Role Phone Caitlyn Bowie MD Primary Care Provider +1- [phone] Encounter Details Date Type Department Care Team (Late st Contact Info) Description 12/19/2016 Scanned Document [facility] Health Information Management [address] [place] [address] External, Provider Social History Tobacco Use Types [...] Building [address] [place], [place] [address] Ronald Mills MD 240 [facility] Max [address]1 [place] [address] documented as of this encounter [...] as of this encounter Care Teams Weaving Supervisor Relationship Specialty Start Date End Date Caitlyn Bowie MD [facility] 1 [place] [address] PCP - General Internal Medicine 05/06/21 Henry Kelly MD Pulmonary Department 175 [facility], [address] [place] [address] Physician Pulmonary Disease 09/06/17 06/22/20 documented as of this encounter
--- OUTSIDE RECORDS SUMMARY | 2025-03-17 13:46 | XMS_ITS | Encounter Summary ---
Author Organization [facility] and [facility] Address [address] [place] [address] Care Team Providers Care Emergency Medicine Name Role Phone Caitlyn Bowie MD Primary Care Provider +1- [phone] Encounter Details Date Type Department Care Team (Late st Contact Info) Description 06/27/2019 Scanned Document Onco-Oncology Program at [address] [place] [address] Norma Renee MD [address] [place] [address] 2 [place] [address] Social History Tobacco Use Types [...] PM EDT Telemedicine Cancer Center at [address] [place], [place] [address] Ronald Mills MD 240 [facility] A1 [place] [address] documented as of this encounter Visit Diagnoses Not on filedocumented in this encounter Additional Health Concerns Infection Onset Date Last Indicated Resolved Time COVID-19 03/05/2022 03/05/2022 03/15/2022 7:18 PM EDT Assessment Noted Time PHQ-9 Depression Total Score: 2 11/07/19 19 2:06 PM EDT documented as of this encounter Care Teams Emergency Medicine Relationship Specialty Start Date End Date Caitlyn Bowie MD 3400 [facility] 1 [place] [address] PCP - General Internal Medicine 05/06/21 Henry Kelly MD Pulmonary Department 175 [facility], [address] [place] [address] Physician Pulmonary Disease 09/06/17 06/22/20 documented as of this encounter
--- OUTSIDE RECORDS SUMMARY | 2025-03-17 13:46 | XMS_ITS | Encounter Summary ---
Author Organization [facility] and [facility] Address 20 [place] [address] Care Team Providers Care Memorial Mason Name Role Phone Caitlyn Bowie MD Primary Care Provider +1- [phone] Encounter Details Date Type Department Care Team (Late st Contact Info) Description 08/29/2019 Scanned Document Cancer Center at [address] [address] External, Provider Social History Tobacco Use Types [...] [facility] 240 [facility] Building [address] [place], [place] [phone] Ronald Mills MD [address] [place] [address] [address]1 [place] [address] documented as [...] documented as of this encounter Care Teams Memorial Mason Relationship Specialty Start Date End Date Caitlyn Bowie MD 3400 [facility] 1 [place] [address] PCP - General Internal Medicine 05/06/21 Henry Kelly MD Pulmonary Department 175 [facility], [address] [place] [address] Physician Pulmonary Disease 09/06/17 06/22/20 documented as of this encounter
--- OUTSIDE RECORDS SUMMARY | 2025-03-17 13:46 | XMS_ITS | Encounter Summary ---
Author Organization [facility] Address [address] [place] [address] Phone Care Team Providers Care Cnc Lathe Machinist Name Role Phone Caitlyn Bowie MD Primary Care Provider +1- [phone] Encounter Details Date Type Department Care Team (Late Contact Info) Description 12/10/2024 Documentation Only [facility] [address] [place] [address] Marina Abdi [address] [place] [address] Social History Tobacco Use Types [...] [facility] [address] [place] [address] Rubén Ashraf MD [address] [place] [address] [place] [address] documented as of this encounter Visit Diagnoses Not on filedocumented in this encounter Care Teams Cnc Lathe Machinist Relationship Specialty Start Date End Date Caitlyn Bowie MD [address]00 [place], [place] PCP - General Internal Medicine 09/24/24 documented as of this encounter
--- OUTSIDE RECORDS SUMMARY | 2025-03-17 13:46 | XMS_ITS | Encounter Summary ---
Author Organization [facility] and [facility] Address [address] [place] [address] Care Team Providers Care Estimator Project Manager Name Role Phone Caitlyn Bowie MD Primary Care Provider +1- [phone] Encounter Details Date Type Department Care Team (Late st Contact Info) Description 12/16/2016 Scanned Document [facility] Health Information Management [address] [place] [address] External, Provider Social History Tobacco Use Types [...] [facility] 240 [facility] Building [address] [place], [place] [address] Ronald Mills MD 240 [facility] Max A1 [place] [address] [...] documented as of this encounter Care Teams Estimator Project Manager Relationship Specialty Start Date End Date Caitlyn Bowie MD 3400 [facility] 1 [place] [address] PCP - General Internal Medicine 05/06/21 Henry Kelly MD Pulmonary Department 175 [facility], [address] [place] [address] Physician Pulmonary Disease 09/06/17 06/22/20 documented as of this encounter
--- OUTSIDE RECORDS SUMMARY | 2025-03-17 13:46 | XMS_ITS | Encounter Summary ---
Author Organization [facility] Address [address] [place] [address] Care Team Providers Care Loan Secretary Name Role Phone Caitlyn Bowie MD Primary Care Provider +1- [phone] Encounter Details Date Type Department Care Team (Late Contact Info) Description 09/15/2020 Scanned Document [facility] Health Information Management [address] [place] [address] External, Provider Social History Tobacco Use Types [...] [facility] Building [address] [place], [place] [address] Ronald Mills MD [address] [place] [address] A1 [place] [address] documented as of this encounter [...] as of this encounter Care Teams Loan Secretary Relationship Specialty Start Date End Date Caitlyn Bowie MD [address] [address] PCP - General Internal Medicine 05/06/21 documented as of this encounter
--- OUTSIDE RECORDS SUMMARY | 2025-03-17 13:46 | XMS_ITS | Encounter Summary ---
Author Organization [facility] and [facility] Address [address] [place] [address] Care Team Providers Care Champion Of Sustainable Design Name Role Phone Caitlyn Bowie MD Primary Care Provider +1- [phone] Encounter Details Date Type Department Care Team (Late st Contact Info) Description 02/21/2017 Scanned Document [facility] Health Information Management [address] [place] [address] External, Provider Social History Tobacco Use Types [...] [facility] 240 [facility] Building [address] [place], [place] [address] Ronald Mills MD 240 [facility] Max [address]1 [place] [address] documented as of this encounter [...] 3400 [facility] Max 1 [place] [address] PCP - General Internal Medicine 05/06/21 Henry Kelly MD Pulmonary Department 175 [facility], [address] [place] [address] Physician Pulmonary Disease 09/06/17 06/22/20 documented as of this encounter
--- OUTSIDE RECORDS SUMMARY | 2025-03-17 13:46 | XMS_ITS | Encounter Summary ---
Author Organization [facility] and [facility] Address [address] [place] [address] Care Team Providers Care Wire Dropper Name Role Phone Caitlyn Bowie MD Primary Care Provider +1- [phone] Encounter Details Date Type Department Care Team (Late st Contact Info) Description 12/16/2016 Scanned Document [facility] Health Information Management [address] [place] [address] External, Provider Social History Tobacco Use Types [...] [facility] 240 [facility] Building [address] [place], [place] [address] Ronald Mills MD 240 [facility] A1 [place] [address] documented as of this encounter [...] as of this encounter Care Teams Wire Dropper Relationship Specialty Start Date End Date Caitlyn Bowie MD [facility] 1 [place] [address] PCP - General Internal Medicine 05/06/21 Henry Kelly MD Pulmonary Department 175 [facility], [address] [place] [address] Physician Pulmonary Disease 09/06/17 06/22/20 documented as of this encounter
--- OUTSIDE RECORDS SUMMARY | 2025-03-17 13:46 | XMS_ITS | Encounter Summary ---
Author Organization [facility] and [facility] Address 20 [place] [address] Care Team Providers Care Business Management Professor Name Role Phone Caitlyn Bowie MD Primary Care Provider +1- [phone] Encounter Details Date Type Department Care Team (Late st Contact Info) Description 11/26/2019 Scanned Document Cancer Center at [address] [place] [address] [address] External, Provider Social History Tobacco Use Types [...] [facility] Building [address] [place], [place] [address] Ronald Mills MD [address] [place] [address] [address]1 [place] [address] documented as of [...] as of this encounter Care Teams Business Management Professor Relationship Specialty Start Date End Date Caitlyn Bowie MD 3400 [facility] 1 [place] [address] PCP - General Internal Medicine 05/06/21 Henry Kelly MD Pulmonary Department 175 [facility], [address] [place] [address] Physician Pulmonary Disease 09/06/17 06/22/20 documented as of this encounter
--- OUTSIDE RECORDS SUMMARY | 2025-03-17 13:46 | XMS_ITS | Encounter Summary ---
Author Organization [facility] and [facility] Address [address] [place] [address] Care Team Providers Care Weatherization Crew Leader Name Role Phone Caitlyn Bowie MD Primary Care Provider +1- [phone] Encounter Details Date Type Department Care Team (Late st Contact Info) Description 06/27/2019 Scanned Document Onco-Oncology Program at [address] [place] [address] Norma Renee MD [address] [place] [address] 2 [place] [address] Social History Tobacco Use Types [...] PM EDT Telemedicine Cancer Center at [address] [place], [place] [phone] Ronald Mills MD 240 [facility] A1 [place] [address] documented as of this encounter Visit Diagnoses Not on filedocumented in this encounter Additional Health Concerns Infection Onset Date Last Indicated Resolved Time COVID-19 03/05/2022 03/05/2022 03/15/2022 7:18 PM EDT Assessment Noted Time PHQ-9 Depression Total Score: 2 11/07/19 19 2:06 PM EDT documented as of this encounter Care Teams Weatherization Crew Leader Relationship Specialty Start Date End Date Caitlyn Bowie MD 3400 [facility] 1 [place] [address] PCP - General Internal Medicine 05/06/21 Henry Kelly MD Pulmonary Department 175 [facility], [address] [place] [address] Physician Pulmonary Disease 09/06/17 06/22/20 documented as of this encounter
--- OUTSIDE RECORDS SUMMARY | 2025-03-17 13:46 | XMS_ITS | Encounter Summary ---
Author Organization [facility] Address [address] [place] [address] Care Team Providers Care Extractive Metallurgist Name Role Phone Caitlyn Bowie MD Primary Care Provider +1- [phone] Encounter Details Date Type Department Care Team (Late st Contact Info) Description 08/16/2012 Abstract COUNT INCLUDES [facility] Health Information Management [address] [place] [address] [place], Primary Care [address] [place] [address] Social History Tobacco Use Types Packs/Day Years [...] PM EDT Telemedicine Cancer Center at [address] [place], [place] [address] Ronald Mills MD 240 [facility] Max [address]1 [place] [address] documented as of this encounter Visit Diagnoses Not on filedocumented in this encounter Additional Health Concerns Infection Onset Date Last Indicated Resolved Time COVID-19 03/05/2022 03/05/2022 03/15/2022 7:18 PM EDT documented as of this encounter Care Teams Extractive Metallurgist Relationship Specialty Start Date End Date Caitlyn Bowie MD 3400 [facility] 1 [place] [address] PCP - General Internal Medicine 05/06/21 Henry Kelly MD Pulmonary Department [address] [place] [address], [address] [place] [address] Physician Pulmonary Disease 09/06/17 06/22/20 documented as of this encounter
--- OUTSIDE RECORDS SUMMARY | 2025-03-17 13:46 | XMS_ITS | Encounter Summary ---
Author Organization [facility] and [facility] Address [address] [place] [address] Care Team Providers Care Combination Machine Tool Operator Name Role Phone Caitlyn Bowie MD Primary Care Provider +1- [phone] Encounter Details Date Type Department Care Team (Late st Contact Info) Description 04/27/2017 Scanned Document [facility] Health Information Management [address] [place] [address] External, Provider Social History Tobacco Use Types [...] Center at [facility] [address] [facility] [address] [place], [place] [id number] Ronald Mills MD 240 [facility] A1 [place] [address] documented as of this encounter Visit Diagnoses Not on filedocumented in this encounter Additional Health Concerns Infection Onset Date Last Indicated Resolved Time COVID-19 03/05/2022 03/05/2022 03/15/2022 7:18 PM EDT documented as of this encounter Care Teams Combination Machine Tool Operator Relationship Specialty Start Date End Date Caitlyn Bowie MD 3400 [facility] 1 [place] [address] PCP - General Internal Medicine 05/06/21 Henry Kelly MD Pulmonary Department 175 [facility], [address] [place] [address] Physician Pulmonary Disease 09/06/17 06/22/20 documented as of this encounter
--- OUTSIDE RECORDS SUMMARY | 2025-03-17 13:46 | XMS_ITS | Encounter Summary ---
Author Organization [facility] and [facility] Address 20 [place] [address] Care Team Providers Care Regular Senior Care Provider Name Role Phone Caitlyn Bowie MD Primary Care Provider +1- [phone] Encounter Details Date Type Department Care Team (Late st Contact Info) Description 01/28/2013 Scanned Document Thoracic Oncology Program at [address] [address] Solo Henry MD [address] [place] [address] Social History Tobacco Use Types Packs/Day [...] [facility] 240 [facility] Building [address] [place], [place] [address] Ronald Mills MD 240 [facility] Max [address]1 [place] [address] documented as of this encounter Visit Diagnoses Not on filedocumented in this encounter Additional Health Concerns Infection Onset Date Last Indicated Resolved Time COVID-19 03/05/2022 03/05/2022 03/15/2022 7:18 PM EDT documented as of this encounter Care Teams Regular Senior Care Provider Relationship Specialty Start Date End Date Caitlyn Bowie MD 3400 [facility] 1 [place] [address] PCP - General Internal Medicine 05/06/21 Henry Kelly MD Pulmonary Department 175 [facility], [address] [place] [address] Physician Pulmonary Disease 09/06/17 06/22/20 documented as of this encounter
--- OUTSIDE RECORDS SUMMARY | 2025-03-17 13:46 | XMS_ITS | Encounter Summary ---
Author Organization [facility] and [facility] Address 20 [place] [address] Care Team Providers Care Municipal Court Judge Name Role Phone Caitlyn Bowie MD Primary Care Provider +1- [phone] Encounter Details Date Type Department Care Team (Latest Contact Info) Description 04/15/2013 Transcribed Orders [facility] 800 [place] [address] Tian Atwood MD 280 [facility] 102 [place] [address] Unspecified hypothyroidism (Primary Dx) Social [...] [facility] [address] [place] [address] Ronald Mills MD 240 [facility] A1 [place] [address] documented as of this encounter Results * Copper, serum total (YH) (04/15/2013 4:31 PM EDT) Copper, Serum Total SEE BELOW [facility] Comment: Test Result Flag Unit RefValue Copper, S 1.35 mcg/mL 0.75-1.45 04/15/2013 4:31 PM EDT us Tian Atwood MD LAB BLOOD ORDERABLES Final R esult [facility] [address] [place] [address] documented in this encounter Visit Diagnoses Diagnosis Unspecified hypothyroidism- Primary documented in this encounter Additional Health Concerns Infection Onset Date Last Indicated Resolved Time COVID-19 03/05/2022 03/05/2022 03/15/2022 7:18 PM EDT documented as of this encounter Care Teams Municipal Court Judge Relationship Specialty Start Date End Date Caitlyn Bowie MD 3400 [facility] 1 [place] [address] PCP - General Internal Medicine 05/06/21 Henry Kelly MD Pulmonary Department 175 [facility], [address] [place] [address] Physician Pulmonary Disease 09/06/17 06/22/20 documented as of this encounter
--- OUTSIDE RECORDS SUMMARY | 2025-03-17 13:46 | XMS_ITS | Encounter Summary ---
Author Organization [facility] and [facility] Address [address] [place] [address] Care Team Providers Care Biostatistics Director Name Role Phone Caitlyn Bowie MD Primary Care Provider +1- [phone] Encounter Details Date Type Department Care Team (Late st Contact Info) Description 06/27/2019 Scanned Document Onco-Oncology Program at [address] [place] [address] Norma Renee MD [address] [place] [address] 2 [place] [address] Social History Tobacco Use Types [...] PM EDT Telemedicine Cancer Center at [address] [place], [place] [address] Ronald Mills MD 240 [facility] A1 [place] [address] documented as of this encounter Visit Diagnoses Not on filedocumented in this encounter Additional Health Concerns Infection Onset Date Last Indicated Resolved Time COVID-19 03/05/2022 03/05/2022 03/15/2022 7:18 PM EDT Assessment Noted Time PHQ-9 Depression Total Score: 2 11/07/19 19 2:06 PM EDT documented as of this encounter Care Teams Biostatistics Director Relationship Specialty Start Date End Date Caitlyn Bowie MD 3400 [facility] 1 [place] [address] PCP - General Internal Medicine 05/06/21 Henry Kelly MD Pulmonary Department 175 [facility], [address] [place] [address] Physician Pulmonary Disease 09/06/17 06/22/20 documented as of this encounter
--- OUTSIDE RECORDS SUMMARY | 2025-03-17 13:46 | XMS_ITS | Encounter Summary ---
Author Organization [facility] and [facility] Address [address] [place] [address] Care Team Providers Care High Lighter Name Role Phone Caitlyn Bowie MD Primary Care Provider +1- [phone] Encounter Details Date Type Department Care Team (Late st Contact Info) Description 12/16/2016 Scanned Document [facility] Health Information Management [address] [place] [address] External, Provider Social History Tobacco Use Types [...] [facility] 240 [facility] Building [address] [place], [place] [phone] Ronald Mills MD 240 [facility] Max A1 [place] [address] documented as of this encounter [...] as of this encounter Care Teams High Lighter Relationship Specialty Start Date End Date Caitlyn Bowie MD 3400 [facility] 1 [place] [address] PCP - General Internal Medicine 05/06/21 Henry Kelly MD Pulmonary Department 175 [facility], [address] [place] [address] Physician Pulmonary Disease 09/06/17 06/22/20 documented as of this encounter
--- OUTSIDE RECORDS SUMMARY | 2025-03-17 13:46 | XMS_ITS | Encounter Summary ---
Author Organization [facility] and [facility] Address [address] [place] [address] Care Team Providers Care Process Camera Operator Name Role Phone Caitlyn Bowie MD Primary Care Provider +1- [phone] Encounter Details Date Type Department Care Team (Late st Contact Info) Description 12/16/2016 Scanned Document [facility] Health Information Management [address] [place] [address] External, Provider Social History Tobacco Use Types [...] Center at [facility] 240 [facility] Building [address] [place], [place] [phone] Ronald Mills MD 240 [facility] Max [address]1 [place] [address] documented as of this encounter [...] as of this encounter Care Teams Process Camera Operator Relationship Specialty Start Date End Date Caitlyn Bowie MD 3400 [facility] 1 [place] [address] PCP - General Internal Medicine 05/06/21 Henry Kelly MD Pulmonary Department 175 [facility], [address] [place] [address] Physician Pulmonary Disease 09/06/17 06/22/20 documented as of this encounter
--- OUTSIDE RECORDS SUMMARY | 2025-03-17 13:46 | XMS_ITS | Encounter Summary ---
Author Organization [facility] Address [address] [place] [address] Phone Care Team Providers Care Art Psychotherapist Name Role Phone Caitlyn Bowie MD Primary Care Provider +1- [phone] Encounter Details Date Type Department Care Team (Late Contact Info) Description 12/10/2024 Documentation Only [facility] [address] [place] [address] Marina Abdi [address] [place] [address] Social History Tobacco Use Types [...] Visit [facility] [address] [place] [address] Rubén Ashraf MD [address] [place] [address] Dr. [place] [address] documented as of this encounter Visit Diagnoses Not on filedocumented in this encounter Care Teams Art Psychotherapist Relationship Specialty Start Date End Date Caitlyn Bowie MD 3400 [place], [place] PCP - General Internal Medicine 09/24/24 documented as of this encounter
--- OUTSIDE RECORDS SUMMARY | 2025-03-17 13:46 | XMS_ITS | Clinical Summary ---
Author Organization [facility] Address [address] [place] [address] Care Team Providers Care Heel Shaver Name Role Phone Brennan Burnett MD Primary Care Provider [phone] Allergies Active Allergy Reactions Criticality Noted Date [...] age to complete this topic Care Teams Heel Shaver Relationship Specialty Start Date End Date Brennan Burnett MD [address] [place] [address] PCP - General Internal Medicine 07/06/20
--- OUTSIDE RECORDS SUMMARY | 2025-03-17 13:46 | XMS_ITS | Encounter Summary ---
Author Organization [facility] and [facility] Address 20 [place] [address] Care Team Providers Care Stamping Die Try Out Worker Name Role Phone Caitlyn Bowie MD Primary Care Provider +1- [phone] Encounter Details Date Type Department Care Team (Late st Contact Info) Description 04/26/2017 Scanned Document Cardiovascular Medicine at [address] [place] [address] System, Provider Not In Social History Tobacco [...] [facility] 240 [facility] Building [address] [place], [place] [address] Ronald Mills MD 240 [facility] A1 [place] [address] documented as of this encounter [...] documented as of this encounter Care Teams Stamping Die Try Out Worker Relationship Specialty Start Date End Date Caitlyn Bowie MD 3400 [facility] Max 1 [place] [address] PCP - General Internal Medicine 05/06/21 Henry Kelly MD Pulmonary Department 175 [facility], [address] [place] [address] Physician Pulmonary Disease 09/06/17 06/22/20 documented as of this encounter
--- OUTSIDE RECORDS SUMMARY | 2025-03-17 13:46 | XMS_ITS | Encounter Summary ---
Author Organization [facility] Address [address] [place] [address] Phone Care Team Providers Care Gauge And Weigh Machine Operator Name Role Phone Caitlyn Bowie MD Primary Care Provider +1- [phone] Encounter Details Date Type Department Care Team (Late Contact Info) Description 12/10/2024 Documentation Only [facility] [address] [place] [address] Marina Abdi 2150 [place] [address] Social History Tobacco Use Types [...] Visit [facility] [address] [place] [address] Rubén Ashraf MD [address] [place] [address] [place] [address] documented as of this encounter Visit Diagnoses Not on filedocumented in this encounter Care Teams Gauge And Weigh Machine Operator Relationship Specialty Start Date End Date Caitlyn Bowie MD 3400 [place], [place] PCP - General Internal Medicine 09/24/24 documented as of this encounter
--- OUTSIDE RECORDS SUMMARY | 2025-03-17 13:46 | XMS_ITS | Encounter Summary ---
Author Organization [facility] and [facility] Address [address] [place] [address] Care Team Providers Care Forging Press Setter Up Name Role Phone Caitlyn Bowie MD Primary Care Provider +1- [phone] Encounter Details Date Type Department Care Team (Late st Contact Info) Description 07/12/2019 Scanned Document Onco-Oncology Program at [address] [place] [address] Norma Renee MD [address] [place] [address] 2 [place] [address] Social History Tobacco Use Types [...] 4:00 PM EDT Telemedicine Cancer Center at [address] [place], [place] [address] Ronald Mills MD 240 [facility] A1 [place] [address] documented as of this encounter Visit Diagnoses Not on filedocumented in this encounter Additional Health Concerns Infection Onset Date Last Indicated Resolved Time COVID-19 03/05/2022 03/05/2022 03/15/2022 7:18 PM EDT Assessment Noted Time PHQ-9 Depression Total Score: 2 11/07/19 19 2:06 PM EDT documented as of this encounter Care Teams Forging Press Setter Up Relationship Specialty Start Date End Date Caitlyn Bowie MD 3400 [facility] 1 [place] [address] PCP - General Internal Medicine 05/06/21 Henry Kelly MD Pulmonary Department 175 [facility], [address] [place] [address] Physician Pulmonary Disease 09/06/17 06/22/20 documented as of this encounter
--- OUTSIDE RECORDS SUMMARY | 2025-03-17 13:46 | XMS_ITS | Encounter Summary ---
Author Organization [facility] Address 20 [place] [address] Care Team Providers Care Bone Puller Name Role Phone Caitlyn Bowie MD Primary Care Provider +1- [phone] Encounter Details Date Type Department Care Team (Late st Contact Info) Description 01/28/2013 Scanned Document Thoracic Oncology Program at [address] [address] Solo Henry MD [address] [place] [address] Social History Tobacco Use Types Packs/Day [...] [facility] 240 [facility] Building [address] [place], [place] [address] Ronald Mills MD 240 [facility] Max [address]1 [place] [address] documented as of this encounter Visit Diagnoses Not on filedocumented in this encounter Additional Health Concerns Infection Onset Date Last Indicated Resolved Time COVID-19 03/05/2022 03/05/2022 03/15/2022 7:18 PM EDT documented as of this encounter Care Teams Bone Puller Relationship Specialty Start Date End Date Caitlyn Bowie MD 3400 [facility] Max 1 [place] [address] PCP - General Internal Medicine 05/06/21 Henry Kelly MD Pulmonary Department 175 [facility], [address] [place] [address] Physician Pulmonary Disease 09/06/17 06/22/20 documented as of this encounter
--- OUTSIDE RECORDS SUMMARY | 2025-03-17 13:46 | XMS_ITS | Encounter Summary ---
Author Organization [facility] Address [address] [place] [address] Phone Care Team Providers Care Digital Strategy Specialist Name Role Phone Caitlyn Bowie MD Primary Care Provider +1- [phone] Encounter Details Date Type Department Care Team (Late Contact Info) Description 12/10/2024 Documentation Only [facility] [address] [place] [address] Marina Abdi [address] [place] [address] Social History Tobacco Use Types [...] Visit [facility] [address] [place] [address] Rubén Ashraf MD [address] [place] [address] [place] [address] documented as of this encounter Visit Diagnoses Not on filedocumented in this encounter Care Teams Digital Strategy Specialist Relationship Specialty Start Date End Date Caitlyn Bowie MD 3400 [place], [place] PCP - General Internal Medicine 09/24/24 documented as of this encounter
--- OUTSIDE RECORDS SUMMARY | 2025-03-17 13:46 | XMS_ITS | Encounter Summary ---
Author Organization [facility] and [facility] Address [address] [place] [address] Care Team Providers Care Management Architect Name Role Phone Caitlyn Bwoie MD Primary Care Provider +1- [phone] Encounter Details Date Type Department Care Team (Late st Contact Info) Description 07/26/2012 Abstract [facility] Health Information Management [address] [place] [address] [place], Primary Care [address] [place] [address] Social History Tobacco Use Types Packs/Day Years [...] PM EDT Telemedicine Cancer Center at [address] [place], [place] [address] Ronald Mills MD [address] [place] [address] documented as of this encounter Visit Diagnoses Not on filedocumented in this encounter Additional Health Concerns Infection Onset Date Last Indicated Resolved Time COVID-19 03/05/2022 03/05/2022 03/15/2022 7:18 PM EDT documented as of this encounter Care Teams Management Architect Relationship Specialty Start Date End Date Caitlyn Bowie MD 3400 [facility] 1 [place] [address] PCP - General Internal Medicine 05/06/21 Henry Kelly MD Pulmonary Department 175 [facility], [address] [place] [address] Physician Pulmonary Disease 09/06/17 06/22/20 documented as of this encounter
--- OUTSIDE RECORDS SUMMARY | 2025-03-17 13:46 | XMS_ITS | Encounter Summary ---
Author Organization [facility] Address [address] [place] [address] Care Team Providers Care Holistic Specialist Name Role Phone Caitlyn Bowie MD Primary Care Provider +1- [phone] Encounter Details Date Type Department Care Team (Late st Contact Info) Description 04/18/2013 Documentation Hematology Program at [address] [address] Isis Ragland RN Social History Tobacco Use [...] [facility] 240 [facility] Building [address] [place], [place] [phone] Ronald Mills MD 240 [facility] A1 [place] [address] documented as of this encounter Visit Diagnoses Not on filedocumented in this encounter Additional Health Concerns Infection Onset Date Last Indicated Resolved Time COVID-19 03/05/2022 03/05/2022 03/15/2022 7:18 PM EDT documented as of this encounter Care Teams Holistic Specialist Relationship Specialty Start Date End Date Caitlyn Bowie MD 3400 [facility] 1 [place] [address] PCP - General Internal Medicine 05/06/21 Henry Kelly MD Pulmonary Department 175 [facility], [address] [place] [address] Physician Pulmonary Disease 09/06/17 06/22/20 documented as of this encounter
--- OUTSIDE RECORDS SUMMARY | 2025-03-17 13:47 | XMS_ITS | Encounter Summary ---
Author Organization [facility] Address [address] [place] [address] Care Team Providers Care Clinical Coordinator Name Role Phone Caitlyn Bowie MD Primary Care Provider +1- [phone] Encounter Details Date Type Department Care Team (Late st Contact Info) Description 04/13/2021 Scanned Document INTERFACE DEFAULT [address] [place] [address] System, Provider Not In Social History Tobacco [...] at [facility] 240 [facility] Building [address] [place], [place] [phone] Ronald Mills MD [address] [place] [address] [address] [place] [address] documented as of this encounter [...] as of this encounter Care Teams Clinical Coordinator Relationship Specialty Start Date End Date Caitlyn Bowie MD [address] [address] PCP - General Internal Medicine 05/06/21 documented as of this encounter
--- OUTSIDE RECORDS SUMMARY | 2025-03-17 13:47 | XMS_ITS | Encounter Summary ---
Author Organization [facility] and [facility] Address [address] [place] [address] Care Team Providers Care Licensed Staff Mft Name Role Phone Caitlyn Bowie MD Primary Care Provider +1- [phone] Encounter Details Date Type Department Care Team (Late st Contact Info) Description 04/21/2021 Scanned Document INTERFACE DEFAULT [address] [place] [address] System, Provider Not In Social History Tobacco [...] [facility] [address] [facility] Building [address] [place], [place] [phone] Ronald Mills MD [address] [place] [address] [address] [place] [address] documented as [...] as of this encounter Care Teams Licensed Staff Mft Relationship Specialty Start Date End Date Caitlyn Bowie MD [facility] [address] [address] PCP - General Internal Medicine 05/06/21 documented as of this encounter
--- OUTSIDE RECORDS SUMMARY | 2025-03-17 13:47 | XMS_ITS | Clinical Summary ---
Author Organization [address] Address [address] [place] [address] Phone Care Team Providers Care Switch Operator Name Role Phone Caitlyn Bowie MD Primary Care Provider +1- [phone] Allergies Active Allergy Reactions Criticality Noted Date [...] Description 01/20/2025 Telephone [facility] at [address] [address] Ronald Mills MD Triage from Last 3 [...] PM EDT Telemedicine [facility] at [address] [place], [place] [address] Ronald Mills MD [address] [place] [address] Rd [address] [place] [address] Health Maintenance Due Date Last Done [...] mmol/L 04/05/2022 1:43 PM EDT [facility] DEPARTMENT OF LABORATORY MEDICINE [facility] Potassium 4.7 3.3 - 5.3 mmol/L 04/05/2022 1:43 PM EDT [facility] DEPARTMENT OF LABORATORY MEDICINE [facility] Chloride 100 98 - 107 mmol/L 04/05/2022 1:43 PM EDT [facility] DEPARTMENT OF LABORATORY MEDICINE [facility] CO2 30 20 - 30 mmol/L 04/05/2022 1:43 PM EDT [facility] DEPARTMENT OF LABORATORY MEDICINE [facility] Anion Gap 8 7 - 17 04/05/2022 1:43 PM EDT [facility] DEPARTMENT OF LABORATORY MEDICINE [facility] Glucose 115(H) 70 - 100 mg/dL 04/05/2022 1:43 PM EDT [facility] DEPARTMENT OF LABORATORY MEDICINE [facility] BUN 16 8 - 23 mg/dL 04/05/2022 1:43 PM EDT [facility] DE[facility] Creatinine 0.89 0.40 - 1.30 mg/dL 04/05/2022 1:43 PM EDT [facility] DEPARTMENT LABORATORY MEDICINE [facility] Calcium 10.5(H) 8.8 - 10.2 mg/dL 04/05/2022 1:43 PM EDT [facility] DEPARTMENT OF LABORATORY MEDICINE [facility] BUN/Creatinine Ratio 18.0 8.0 - 23.0 03/11 1:43 PM EDT [facility] DEPARTMENT LABORATORY MEDICINE [facility] Total Protein 7.0 6.6 - 8.7 g/dL 04/05/2022 1:43 PM [facility] DEPARTMENT OF LABORATORY MEDICINE [facility] Albumin 4.2 3.6 - 4.9 g/dL 04/05/2022 1:43 PM T [facility] DEPARTMENT OF LABORATORY MEDICINE [facility] Total Bilirubin 0.6 <=1.2 mg/dL 04/05/2022 1:43 PM [facility] DEPARTMENT LABORATORY MEDICINE [facility] Alkaline Phosphatase 58 9 - 122 U/L 04/05/2022 1:43 PM [facility] DEPARTMENT LABORATORY MEDICINE [facility] Alanine Aminotransferase (ALT) 19 10 - 35 U/L 04/05/2022 1:43 PM [facility] DEPARTMENT OF LABORATORY MEDICINE [facility] Comment:Calcium dobesilate c an cause artificially low ALT results at therapeutic concentrations Aspartate Aminotransferase (AST) 26 10 - 35 U/L 04/05/2022 1:43 PM [facility] DEPARTMENT LABORATORY MEDICINE [facility] Globulin 2.8 2.3 - 3.5 g/dL 04/05/2022 1:43 PM [facility] DEPARTMENT LABORATORY MEDICINE [facility] A/G Ratio 1.5 1.0 - 2.2 04/05/2022 1:43 PM EDT [facility] DEPARTMENT OF LABORATORY MEDICINE [facility] AST/ALT Ratio 1.4 See Comment 04/05/2022 1:43 PM EDT [facility] DEPARTMENT OF LABORATORY MEDICINE [facility] Comment: Adult with mild [...] 3m2 04/05/2022 1:43 PM EDT [facility] DEPARTMENT OF LABORATORY MEDICINE [facility] Comment:Estimated glomerular filtration rate (eGFR) was [...] MD LAB BLOOD ORDERABLES Final Resul t [facility] OF LABORATORY MEDICINE [facility] [address] [place] [address] * Bone Density Result Scan (05/10/2017) Historical Provider IMG SCAN REPORTS Final Resul t * (ABNORMAL) Lipid panel (03/18/2016 2:55 PM EDT) Cholesterol 229(H) 115 - 199 mg/dL 03/18/2016 8:11 PM EDT [facility] HDL 83 >=40 mg/dL 03/18/2016 8:11 PM EDT [facility] Triglycerides 71 30 - 150 mg/dL 03/18/2016 8:11 PM EDT [facility] Chol/HDL Ratio 2.8 <=5 03/18/2016 8:11 PM EDT [facility] Comment:Cholesterol/HDL rati o cannot be calculated. LDL Calculated 132 See Comment mg/dL 03/18/2016 8:11 PM EDT [facility] Comment: <100: Optimal 100-129: Near optimal/above optimal 130-159: Borderline high risk 160-189: High risk >=190: Very high risk Blood specimen (specimen) Venipuncture / Unknown 03/18/2016 2:55 PM EDT 03/18/2016 3:17 PM EDT Narrative [facility] - 03/18/2016 8:11 PM EDT $18.27 us Sangeeta Garces MD LAB BLOOD ORDERABLES Fin al Result Performing Organization Address City/State/[facility] Co de Phone Number [facility] [address] [place] [address] * MAMMOGRAPHY REPORT (04/25/2013 6:47 AM EDT) 04/25/2013 6:47 AM EDT us Provider Not In System IMG SCAN REPORTS Final Re sult from Last 3 Months or Most Recently Relevant to Health Maintenance Insurance MEDICARE [facility] MEDICARE [facility] MEDICARE [facility] MEDICARE MEDICARE [facility] Advance Directives * Full ACLS (Latest Code Status on File) Date Activated Date Inactivated Comments 12/15/2018 7:13 PM 12/16/2018 6:09 PM * Full Interventions Date Activated Date Inactivated Comments 03/18/2016 6:34 PM 03/19/2016 6:40 PM Care Teams Switch Operator Relationship Specialty Start Date End Date Caitlyn Bowie MD [address] [address] PCP - General Internal Medicine 05/06/21
--- OUTSIDE RECORDS SUMMARY | 2025-03-17 13:47 | XMS_ITS | Encounter Summary ---
Author Organization [facility] and [facility] Address [address] [place] [address] Care Team Providers Care Human Resources Assistant Name Role Phone Caitlyn Bowie MD Primary Care Provider +1- [phone] Encounter Details Date Type Department Care Team (Late st Contact Info) Description 06/07/2017 Scanned Document [facility] Health Information Management [address] [place] [address] External, Provider Social History Tobacco Use Types [...] [facility] 240 [facility] Building [address] [place], [place] [address] Ronald Mills MD [address] [place] [address] [address] [place] [address] documented as of this encounter [...] of this encounter Care Teams Human Resources Assistant Relationship Specialty Start Date End Date Caitlyn Bowie MD [address] [facility] 1 [place] [address] PCP - General Internal Medicine 05/06/21 Henry Kelly MD Pulmonary Department [address] [facility], [address] [place] [address] Physician Pulmonary Disease 09/06/17 06/22/20 documented as of this encounter
--- OUTSIDE RECORDS SUMMARY | 2025-03-17 13:47 | XMS_ITS | Patient Health Record ---
Author Organization [facility] Address [address] [facility] [address] [place] [address] Care Team Providers Care Biomass Technician Name Role Phone EVELIN RAMSAY Primary Care Provider Yenny Hou Unavailable [phone] Allergies Allergen (clinical drug ingredient) Drug/Non Drug [...] UROBILINOGEN Neg BILIRUBIN Neg BLOOD Neg Urinalysis, Complete-[id number] Reviewed date:05/04/2024 11:35:42 PM Interpretation: Performing Lab:[facility], [address] [facility], [place], Phone - [phone], Director - Arely Notes/Report: Specific [place] 1.009 1.005-1.030 pH 6.5 5.0-7.5 Urine-Color Yellow [...] Bacteria None seen None seen/Few Urine Culture, Routine-[id number] Reviewed date:05/04/2024 11:35:22 PM Interpretation: Performing Lab:[facility], [address] [place] [address], Phone - [phone], Director - Arely Notes/Report: Urine Culture, Routine Final report Result 1 Culture shows less than 10,000 colony forming units of bacteria per milliliter of urine. This colony count is not generally considered to be clinically significant. PDF Report Reviewed date:05/04/2024 11:35:04 PM Interpretation: Performing Lab:[email or web address], [address] [place] [address], Phone - [phone], Director - Arely Notes/Report: Urinalysis Reviewed date:07/09/2024 11:03:01 AM Interpretation: [...] 25MCG 1 ORAL daily; Durati on: -3 [facility] 06/10/2014 Active ZyrTEC Allergy 10MG [...] 50MG 1 ORAL at bedtime; Duration: -3 [facility] 06/10/2014 Active Meclizine HCl 25 MG 1 tablet as needed Orally [facility] 06/10/2014 Active Albuterol Sulfate (2.5 MG/3ML)0.083% Inhalation 4 x a day prn 06/10/2014 Active Valium 5MG 1 tablet as needed O RAL at bedtime, 1/2 tab prn during the day [facility] 06/10/2014 Active Social History Tobacco [...] Status Risk Notes Problem Postmenopausal atrophic vaginitis (74866467) Postmenopausal atrophic vaginitis (N95.2) Active confirmed Problem Age-related osteoporosis (207514006) Age-related osteoporosis without current pathological fracture (M81.0) Active confirmed Problem Urgent desire to urinate (41466349) Urgency of urination (R39.15) Active confirmed Problem 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 Problem Chronic systolic heart failure (711702110) Chronic systolic (congestive) heart failure (I50.22) Active confirmed Problem Chronic obstructive pulmonary disease (97933461) Chronic obstructive pulmonary disease, unspecified (J44.9) Active confirmed Problem Functional urinary incontinence (284352987) Functional 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) Active confirmed Problem Personal history of primary malignant neoplasm of bronchus (337566081) 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) Active confirmed Vital Signs Temperature 97.7 degrees Fahrenheit 07/18/2024 Blood pressure diastolic 62 mm Hg 07/18/2024 Height 63 in 07/18/2024 Blood pressure systolic 102 mm Hg 07/18/2024 Weight 126 lbs 07/18/2024 BMI 22.32 kg/m2 07/18/2024 Encounters Encounter Location Date Provider Diagnosis [facility] [address] [address] 05/03/2024 Yennydorothy Elizalde Urgency of urination R39.15 and Abscess of vulva N76.[address] [address] 05/10/2024 Yenny Elizalde Abscess of vulva N76 .[address] [address] 05/17/2024 Yenny Elizalde Abscess of vulva N76 .[address] [address] 07/09/2024 Yenny Tonio Urgency of urination R39.15 ; Acute vaginitis N76.0 and Postmenopausal atrophic vaginitis N95.[address] [address] 07/18/2024 Yenny Elizalde Encounter for screening mammogram for malignant neoplasm of breast Z12.31 and Mastodynia N64.[address] [address] 05/10/2024 Yenny Lovettva Total [address] [address] 05/13/2024 Yenny Elizalde [facility] [address] [facility] [address] [place] [address] 06/11/2024 Yenny Elizalde Assessments Encounter Date Diagnosis [...] [facility] AND DISCUSSED THIS PAT. [...] Date MEDICARE [address] VEDA NIEVES [id number] SHIRLEY CINDA Self - patient is the insured MED[employer] [address] [place] [address] [phone] [id number] DANIEL WATSONE Self - patient is [...]
--- OUTSIDE RECORDS SUMMARY | 2025-03-17 13:47 | XMS_ITS | Encounter Summary ---
Author Organization [facility] and [facility] Address [address] [place] [address] Care Team Providers Care Director Of Product Marketing Name Role Phone Caitlyn Bowie MD Primary Care Provider +1- [phone] Encounter Details Date Type Department Care Team (Late st Contact Info) Description 08/09/2017 Scanned Document Cardiovascular Medicine at [address] [place] [address] System, Provider Not In Social History Tobacco [...] [facility] [address] [facility] [address] [place] [address] Ronald Mills MD 240 [facility] [address] [place] [address] documented [...] of this encounter Care Teams Director Of Product Marketing Relationship Specialty Start Date End Date Caitlyn Bowie MD 3400 [facility] Max 1 [place] [address] PCP - General Internal Medicine 05/06/21 Henry Kelly MD Pulmonary Department [address] [facility], [address] [place] [address] Physician Pulmonary Disease 09/06/17 06/22/20 documented as of this encounter
--- OUTSIDE RECORDS SUMMARY | 2025-03-17 13:47 | XMS_ITS | Encounter Summary ---
Author Organization [facility] Address [address] [place] [address] Care Team Providers Care Legal Support Analyst Name Role Phone Caitlyn Bowie MD Primary Care Provider +1- [phone] Encounter Details Date Type Department Care Team (Late st Contact Info) Description 04/22/2021 Scanned Document INTERFACE DEFAULT [address] [place] [address] System, Provider Not In Social History Tobacco [...] [facility] Building [address] [place], [place] [address] Ronald Mills MD [address] [place] [address] [address] [place] [address] documented as of [...] of this encounter Care Teams Legal Support Analyst Relationship Specialty Start Date End Date Caitlyn Bowie MD [facility] [address] [address] PCP - General Internal Medicine 05/06/21 documented as of this encounter
--- OUTSIDE RECORDS SUMMARY | 2025-03-17 13:47 | XMS_ITS | Encounter Summary ---
Author Organization [facility] and [facility] Address [address] [place] [address] Care Team Providers Care Industrial Equipment Wirer Name Role Phone Caitlyn Bowie MD Primary Care Provider +1- [phone] Encounter Details Date Type Department Care Team (Late st Contact Info) Description 04/12/2021 Scanned Document INTERFACE DEFAULT [address] [place] [address] System, Provider Not In Social History Tobacco [...] [facility] 240 [facility] Building [address] [place], [place] [address] Ronald Mills MD [address] [place] [address] [address] [place] [address] documented as of this encounter [...] as of this encounter Care Teams Industrial Equipment Wirer Relationship Specialty Start Date End Date Caitlyn Bowie MD [address] [address] PCP - General Internal Medicine 05/06/21 documented as of this encounter
--- OUTSIDE RECORDS SUMMARY | 2025-03-17 13:47 | XMS_ITS | Encounter Summary ---
Author Organization [facility] Address [address] [place] [address] Care Team Providers Care Moshgiach Name Role Phone Caitlyn Bowie MD Primary Care Provider +1- [phone] Encounter Details Date Type Department Care Team (Late st Contact Info) Description 08/21/2017 Scanned Document [facility] Health Information Management [address] [place] [address] External, Provider Social History Tobacco Use Types [...] [facility] 240 [facility] Building [address] [place], [place] [phone] Ronald Mills MD [address] [place] [address] [address] [place] [address] documented as of this encounter [...] documented as of this encounter Care Teams Moshgiach Relationship Specialty Start Date End Date Caitlyn Bowie MD 3400 [facility] 1 [place] [address] PCP - General Internal Medicine 05/06/21 Henry Kelly MD Pulmonary Department [address] [facility], [address] [place] [address] Physician Pulmonary Disease 09/06/17 06/22/20 documented as of this encounter
--- OUTSIDE RECORDS SUMMARY | 2025-03-17 13:47 | XMS_ITS | Encounter Summary ---
Author Organization [facility] Address [address] [place] [address] Care Team Providers Care Molder Operator Name Role Phone Caitlyn Bowie MD Primary Care Provider +1- [phone] Encounter Details Date Type Department Care Team (Late st Contact Info) Description 04/16/2021 Scanned Document INTERFACE DEFAULT [address] [place] [address] System, Provider Not In Social History Tobacco [...] [facility] 240 [facility] Building [address] [place], [place] [address] Ronald Mills MD [address] [place] [address] [address] [place] [address] documented as of this encounter [...] Date End Date Caitlyn Bowie MD [facility] [address] [address] PCP - General Internal Medicine 05/06/21 documented as of this encounter
--- OUTSIDE RECORDS SUMMARY | 2025-03-17 13:48 | XMS_ITS | Encounter Summary ---
Author Organization [facility] Address [address] [place] [address] Care Team Providers Care Automotive Customer Experience Advisor Name Role Phone Caitlyn Bowie MD Primary Care Provider +1- [phone] Encounter Details Date Type Department Care Team (Late st Contact Info) Description 02/25/2021 Scanned Document INTERFACE DEFAULT [address] [place] [address] System, Provider Not In Social History Tobacco [...] [facility] 240 [facility] Building [address] [place] [address] Ronald Mills MD [address] [place] [address] [address] [place] [address] documented as of this encounter [...] as of this encounter Care Teams Automotive Customer Experience Advisor Relationship Specialty Start Date End Date Caitlyn Bowie MD [address] [address] PCP - General Internal Medicine 05/06/21 documented as of this encounter
--- OUTSIDE RECORDS SUMMARY | 2025-03-17 13:48 | XMS_ITS | Encounter Summary ---
Author Organization [facility] Address [address] [place] [address] Care Team Providers Care Outdoor Recreation Specialist Name Role Phone Caitlyn Bowie MD Primary Care Provider +1- [phone] Encounter Details Date Type Department Care Team (Late st Contact Info) Description 02/08/2021 Scanned Document INTERFACE DEFAULT [address] [place] [address] System, Provider Not In Social History Tobacco [...] [facility] 240 [facility] [address] [place] [address] Ronald Mills MD [address] [place] [address] [address] [place] [address] documented as of this encounter Visit Diagnoses Not on filedocumented in this encounter Additional Health Concerns Infection Onset Date Last Indicated Resolved Time COVID-19 03/05/2022 03/05/2022 03/15/2022 7:18 PM EDT Assessment Noted Time PHQ-9 Depression Total Score: 2 11/07/19 19 2:06 PM EDT documented as of this encounter Care Teams Outdoor Recreation Specialist Relationship Specialty Start Date End Date Caitlyn Bowie MD [address] [address] PCP - General Internal Medicine 05/06/21 documented as of this encounter
--- OUTSIDE RECORDS SUMMARY | 2025-03-17 13:48 | XMS_ITS | Encounter Summary ---
Author Organization [facility] and [facility] Address [address] [place] [address] Care Team Providers Care Investigator Vice Name Role Phone Caitlyn Bowie MD Primary Care Provider +1- [phone] Encounter Details Date Type Department Care Team (Late st Contact Info) Description 03/15/2021 Scanned Document INTERFACE DEFAULT [address] [place] [address] System, Provider Not In Social History Tobacco [...] at [facility] 240 [facility] Building [address] [place], [place] [address] Ronald Mills MD [address] [place] [address] [address] [place] [address] documented as of this encounter [...] documented as of this encounter Care Teams Investigator Vice Relationship Specialty Start Date End Date Caitlyn Bowie MD [facility] [address] [address] PCP - General Internal Medicine 05/06/21 documented as of this encounter
--- OUTSIDE RECORDS SUMMARY | 2025-03-17 13:48 | XMS_ITS | Encounter Summary ---
Author Organization [facility] Address [address] [place] [address] Care Team Providers Care Actuarial Science Professor Name Role Phone Caitlyn Bowie MD Primary Care Provider +1- [phone] Encounter Details Date Type Department Care Team (Late st Contact Info) Description 03/08/2021 Scanned Document INTERFACE DEFAULT [address] [place] [address] System, Provider Not In Social History Tobacco [...] [facility] 240 [facility] Building [address] [place], [place] [address] Ronald Mills MD [address] [place] [address] [address] [place] [address] documented as of this encounter [...] documented as of this encounter Care Teams Actuarial Science Professor Relationship Specialty Start Date End Date Caitlyn Bowie MD [facility] [address] [address] PCP - General Internal Medicine 05/06/21 documented as of this encounter
--- OUTSIDE RECORDS SUMMARY | 2025-03-17 13:48 | XMS_ITS | Encounter Summary ---
Author Organization [facility] Address [address] [place] [address] Care Team Providers Care Devulcanizer Operator Name Role Phone Caitlyn Bowie MD Primary Care Provider +1- [phone] Encounter Details Date Type Department Care Team (Late st Contact Info) Description 02/07/2021 Scanned Document INTERFACE DEFAULT [address] [place] [address] System, Provider Not In Social History [...] [facility] 240 [facility] Building [address] [place], [place] [address] Ronald Mills MD [address] [place] [address] [address] [place] [address] documented as of this encounter [...] documented as of this encounter Care Teams Devulcanizer Operator Relationship Specialty Start Date End Date Caitlyn Bowie MD [address] [address] PCP - General Internal Medicine 05/06/21 documented as of this encounter
--- OUTSIDE RECORDS SUMMARY | 2025-03-17 13:48 | XMS_ITS | Encounter Summary ---
Author Organization [facility] Address [address] [place] [address] Phone Care Team Providers Care Seasoner Name Role Phone Caitlyn Bowie MD Primary Care Provider +1- [phone] Encounter Details Date Type Department Care Team (Late Contact Info) Description 12/12/2024 Documentation Only [facility] [address] [place] [address] Marina Abdi [address] [place] [address] Social History Tobacco Use [...] [facility] [address] [place] [address] Rubén Ashraf MD [address] [place] [address] [place] [address] documented as of this encounter Visit Diagnoses Not on filedocumented in this encounter Care Teams Seasoner Relationship Specialty Start Date End Date Caitlyn Bowie MD [address] [place], [place] PCP - General Internal Medicine 09/24/24 documented as of this encounter
--- OUTSIDE RECORDS SUMMARY | 2025-03-17 13:48 | XMS_ITS | Encounter Summary ---
Author Organization [facility] Address [address] [place] [phone] Care Team Providers Care Collections Technician Name Role Phone Caitlyn Bowie MD Primary Care Provider +1- [phone] Encounter Details Date Type Department Care Team (Late st Contact Info) Description 09/01/2017 Scanned Document [facility] Health Information Management [address] [place] [address] External, Provider Social History Tobacco Use Types [...] [facility] at [facility] [address] [facility] Building [address] [place], [place] [id number] Ronald Mills MD [address] [place] [address] [address] [place] [address] documented as of this encounter [...] as of this encounter Care Teams Collections Technician Relationship Specialty Start Date End Date Caitlyn Bowie MD [facility] 1 [place] [address] PCP - General Internal Medicine 05/06/21 Henry Kelly MD Pulmonary Department [address] [facility], [address] [place] [address] Physician Pulmonary Disease 09/06/17 06/22/20 documented as of this encounter
--- OUTSIDE RECORDS SUMMARY | 2025-03-17 13:48 | XMS_ITS | Encounter Summary ---
Author Organization [facility] Address [address] [place] [phone] Care Team Providers Care Finish Repair Worker Name Role Phone Caitlyn Bowie MD Primary Care Provider +1- [phone] Encounter Details Date Type Department Care Team (Late st Contact Info) Description 04/02/2021 Scanned Document INTERFACE DEFAULT [address] [place] [id number] System, Provider Not In Social History Tobacco [...] [facility] Building [address] [place], [place] [id number] Ronald Mills MD [address] [place] [address] [address] [place] [address] documented as of this encounter [...] documented as of this encounter Care Teams Finish Repair Worker Relationship Specialty Start Date End Date Caitlyn Bowie MD [address] [address] PCP - General Internal Medicine 05/06/21 documented as of this encounter
--- OUTSIDE RECORDS SUMMARY | 2025-03-17 13:48 | XMS_ITS | Encounter Summary ---
Author Organization [facility] Address [address] [place] [address] Care Team Providers Care Yarn Spinner Name Role Phone Caitlyn Bowie MD Primary Care Provider +1- [phone] Encounter Details Date Type Department Care Team (Late st Contact Info) Description 02/28/2021 Scanned Document INTERFACE DEFAULT [address] [place] [phone] System, Provider Not In Social History Tobacco [...] [facility] [address] [facility] Building [address] [place] [address] Ronald Mills MD [address] [place] [address] [address] [place] [address] documented as of this encounter [...] as of this encounter Care Teams Yarn Spinner Relationship Specialty Start Date End Date Caitlyn Bowie MD [address] [address] PCP - General Internal Medicine 05/06/21 documented as of this encounter
--- OUTSIDE RECORDS SUMMARY | 2025-03-17 13:48 | XMS_ITS | Encounter Summary ---
Author Organization [facility] Address [address] [place] [address] Care Team Providers Care Treater Name Role Phone Caitlyn Bowie MD Primary Care Provider +1- [phone] Encounter Details Date Type Department Care Team (Late st Contact Info) Description 04/11/2021 Scanned Document [facility] Health Information Management [address] [place] [address] External, Provider Social History Tobacco Use Types [...] [facility] at [facility] [address] [facility] Building [address] [place], [place] [id number] Ronald Mills MD [address] [place] [address] [address] [place] [address] documented as of this encounter Visit Diagnoses Not on filedocumented in this encounter Additional Health Concerns Infection Onset Date Last Indicated Resolved Time COVID-19 03/05/2022 03/05/2022 03/15/2022 7:18 PM EDT Assessment Noted Time PHQ-9 Depression Total Score: 2 11/07/19 19 2:06 PM EDT documented as of this encounter Care Teams Treater Relationship Specialty Start Date End Date Caitlyn Bowie MD [address] [address] PCP - General Internal Medicine 05/06/21 documented as of this encounter
--- OUTSIDE RECORDS SUMMARY | 2025-03-17 13:48 | XMS_ITS | Encounter Summary ---
Author Organization [facility] Address [address] [place] [address] Care Team Providers Care Book Jacket Cover Machine Operator Name Role Phone Caitlyn Bowie MD Primary Care Provider +1- [phone] Encounter Details Date Type Department Care Team (Late st Contact Info) Description 02/15/2021 Scanned Document INTERFACE DEFAULT [address] [place] [address] System, Provider Not In Social History Tobacco [...] [facility] [address] [facility] Building [address] [place] [address] Ronald Mills MD [address] [place] [address] [address] [place] [address] documented as of this encounter Visit Diagnoses Not on filedocumented in this encounter Additional Health Concerns Infection Onset Date Last Indicated Resolved Time COVID-19 03/05/2022 03/05/2022 03/15/2022 7:18 PM EDT Assessment Noted Time PHQ-9 Depression Total Score: 2 11/07/19 19 2:06 PM EDT documented as of this encounter Care Teams Book Jacket Cover Machine Operator Relationship Specialty Start Date End Date Caitlyn Bowie MD [address] [address] PCP - General Internal Medicine 05/06/21 documented as of this encounter
--- OUTSIDE RECORDS SUMMARY | 2025-03-17 13:48 | XMS_ITS | Encounter Summary ---
Author Organization [facility] Address [address] [place] [address] Care Team Providers Care Transportation Associate Name Role Phone Caitlyn Bowie MD Primary Care Provider +1- [phone] Encounter Details Date Type Department Care Team (Late st Contact Info) Description 11/29/2017 Scanned Document [facility] Health Information Management [address] [place] [phone] External, Provider Social History Tobacco Use Types [...] [facility] at [facility] [address] [facility] Building [address] [place], [place] [phone] Ronald Mills MD [address] [place] [address] [address] [place] [address] documented as of this encounter [...] as of this encounter Care Teams Transportation Associate Relationship Specialty Start Date End Date Caitlyn Bowie MD [address] [facility] 1 [place] [address] PCP - General Internal Medicine 05/06/21 Henry Kelly MD Pulmonary Department [address] [facility], [address] [place] [address] Physician Pulmonary Disease 09/06/17 06/22/20 documented as of this encounter
--- OUTSIDE RECORDS SUMMARY | 2025-03-17 13:48 | XMS_ITS | Clinical Summary ---
Author Organization [address] [facility] Address [address] [place] [address] Phone Care Team Providers Care Test Desk Trouble Locator Name Role Phone Caitlyn Bowie MD Primary Care Provider [phone] Allergies Active Allergy Reactions Criticality Noted Date [...] 20 mg as needed by her previous medical billing and coding specialist which she has taken sporadically. I have asked her to take this daily to see if this improves her symptoms and she has a follow-up appointment with Dr. Shah on September 16 which she will keep. We also had a long conversation regarding the fact that she is seeing 3 different medical billing and coding specialist for the same problems. We informed [...] continues to see Dr. Avalos or her medical billing and coding specialist at [facility]. She verbalized understanding of [...] right lower leg 03/06/2019 Antiphospholipid antibody syndrome ([facility] V24) 12/24/2018 Adrenal insufficiency ([facility] V24) 08/23/2018 Allergic rhinitis 08/23/2018 Hyperparathyroidism ([facility] V24) 08/23/2018 MRSA infection 08/23/2018 Overview (05/16/2024): 06/2009, s/p thoracotomy infection Osteoarthritis 08/23/2018 Radiation-induced pulmonary fibrosis ([facility] V2 4) 11/13/2017 Bronchiectasis ([facility] V24, [facility] V28) 2017 Leg edema 08/08/2017 Restrictive lung disease 08/08/2017 Chronic obstructive pulmonar y disease ([facility] V24, [facility] V28) 04/13/2017 Fibromyalgia 04/13/2017 Congestive heart failure ([facility] V24, [facility] V 28) 04/04/2017 Heterozygous factor V Leiden mutation ([facility] V [facility]) 04/04/2017 Obstructive sleep apnea syndrome 04/04/2017 Overview (05/16/2024): CPAP Pleural effusion 04/04/2017 Pulmonary hypertension ([facility], [facility] V28 ) 04/04/2017 Multiple pulmonary [...] [address] [place] [address] Tim Gomes MD 02/23/2025 11:40 AM EDT - 02/23/2025 4:22 PM EDT Emergency [facility] Emergency [address] [place] [phone] Celia Snider DO Diverticulitis (Primary Dx) Discharge Disposition: Home or Self Care 02/21/2025 4:30 PM EDT Office Visit [facility] [address] [place] [phone] Shirley Chaidez PA Optic neuritis (Primary Dx) 01/19/2025 7:49 PM EDT - 01/19/2025 9:08 PM EDT Emergency [facility] Emergency [address] [place] [phone] Discharge Disposition: Home or Self Care 12/23/2024 9:00 AM EDT Office Visit [facility] [place] [address] [place] [phone] Jerry Li MD Complex regional pain syndrome type 1 of both lower extremities (Primary Dx); Leg swelling from Last 3 Months Immunizations Name Administration [...] DX:Akathisia Anxiety 12/07/2016 DX:Anxiety Bronchiectasis ([facility] V24, [facility] V28) 08/08/2017 DX:Bronchiectasis (HCC) Cataract 08/26/2014 DX:Cataract Chronic obstructive pulmonar y disease ([facility] V24, [facility] V28) 04/13/2017 DX:Chronic obstructive pulm onary disease (HCC) 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 DX:Complica cole migraine Congestive heart failure ([facility] V24, [facility] V28) 04/04/2017 DX:Congestive heart failure (HCC) History of deep vein thrombosis 04/04/2017 DX:History of deep vein thrombosis Diverticulitis of sigmoid colon 12/15/2016 DX:Diverticulitis of sigmoid colon Elevated liver enzymes 09/23/2015 DX:Elevat ed liver enzymes Fibromyalgia 04/13/2017 DX:Fibromyalgia Gastroesophageal reflux disease 11/17/2016 DX:Gastroesophageal reflux disease Glaucoma suspect 08/26/2014 DX:Glaucoma dori pect Heterozygous factor V Leiden mutation ([facility] V24) 04/04/2017 DX:Heterozygous factor V Lei den mutation ([facility]) History of pulmonary embolism 05/15/2017 DX :History of pulmonary embolism Hyperlipidemia 12/07/2016 DX:Hyperlipidemi a Hypothyroidism 12/07/2016 DX:Hypothyroidis m Insomnia 10/18/2016 DX:Insomnia Leg edema 08/08/2017 DX:Leg edema Multiple pulmonary nodules 03/17/2017 DX:Mu ltiple pulmonary nodules Optic neuropathy 08/26/2014 DX:Optic neurop athy Peripheral neuropathic pain 12/07/2016 DX:P eripheral neuropathic pain Pleural effusion 04/04/2017 DX:Pleural effu yaritza Postconcussion syndrome 02/18/2013 DX:Postc oncussion syndrome Pulmonary hypertension ([facility] V24, [facility] V28) 04/04/2017 DX:Pulmonary hypertension (H CC) Restrictive lung disease 08/08/2017 DX:Rest rictive lung disease 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 DX:Zinc deficien cy Obstructive sleep apnea syndrome 04/04/2017 DX:Obstructive sleep apnea syndrome; COMMENT: CPAP Radiation-induced pulmonary fibrosis ([facility] V24) 11/13/2017 DX:Radiation-induced pulmona ry fibrosis (HCC) Adrenal insufficiency ([facility] V24) 08/23/2018 DX:Adrenal insufficiency (HCC) Hyperparathyroidism ([facility] V[facility]) 08/23/2018 DX:Hyperparathyroidism (HCC) Osteoporosis 11/17/2016 DX:Osteoporosis [...] Mx LLL resection, Chemo, RT, Cisplatin, Vinorelbine [id number] Antiphospholipid antibody sy ndrome ([facility] V24) 12/24/2018 DX:Antiphospholipid antibody syndrome (HCC) 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 Hyperparathyroidism ([facility] V24) DX:Hyperparathyroidism (HCC) Adrenal insufficiency ([facility] V24) DX:Adrenal insufficiency (HCC) Family [...] Care Team (Late st Contact Info) Description 03/20/2025 11:40 AM EDT Office Visit [address] [phone] Ayanna Jaffe MD [address] [place] [phone] 04/14/2025 10:00 AM EDT Evaluation [facility] - [address] [phone] Bruno Moreno, PT [address] [place] [address] 05/29/2025 3:00 PM EST Office Visit [address] [phone] Ayanna Jaffe MD [address] [place] [phone] Health Maintenance Due Date Last Done Comments [...] ECG 12-LEAD STAT 02/23/2025 1:05 PM EDT from Last 3 Months Results * ECG-Annotated (02/24/2025) us Provider Onbase MD ECG ORDERABLES Final Result * CT Head wo Contrast (02/23/2025 2:53 PM EDT) Anatomical Region Laterality Modality Head and Neck Computed Tomogra phy 02/23/2025 2:57 PM EDT Impressions 02/23/2025 3:01 PM EDT Impression: No acute hemorrhage or intracranial mass effect. No significant change. Telekarla KAPOOR ([id number]) -------- FINAL REPORT -------- Dictated By: Fawn Levin Dictated Date: 02/23/2025 14:57 ET Assigned Physician: Fawn Levin Reviewed and Electronically Signed By: Fawn Levin Signed Date: 02/23/2025 15:01 ET Workstation ID: [id number] Transcribed By: Self Edit Transcribed Date: 02/23/2025 14:57 ET Narrative 02/23/2025 3:01 PM EDT History: Headache. Comparison: 12/10/24 Technique: Contiguous axial images were obtained at 2.5 mm intervals through the posterior fossa and at 5 mm intervals through the remainder of the brain without intravenous contrast. DLP: 808.85 mGy/cm [employer] VCT Iterative reconstruction technique Findings: Moderate generalized [...] without intravenous contrast. DLP: 808.85 mGy/cm [employer] VCT Iterative reconstruction technique Findings: Moderate generalized [...] mass effect. No significant change. Telerad EMELIA ([id number]) -------- FINAL REPORT -------- Dictated By: Fawn Levin Dictated Date: 02/23/2025 14:57 ET Assigned Physician: Fawn Levin Reviewed and Electronically Signed By: Fawn Levin Signed Date: 02/23/2025 15:01 ET Workstation ID: [id number] Transcribed By: Self Edit Transcribed Date: 02/23/2025 [...] appropriate, to exclude this possibility. Telerad EMELIA ([id number]) -------- FINAL REPORT -------- Dictated By: Fawn Levin Dictated Date: 02/23/2025 15:01 ET Assigned Physician: Fawn Levin Reviewed and Electronically Signed By: Fawn Levin Signed Date: 02/23/2025 15:05 ET Workstation ID: [id number] Transcribed By: Self Edit Transcribed Date: 02/23/2025 15:01 ET Narrative 02/23/2025 3:05 PM EDT History: Left lower quadrant abdominal pain. Comparison: 08/23/23 Technique: Helical volumetric imaging of the abdomen and pelvis was performed without intravenous or oral contrast. DLP: 480.07 mGy/cm [employer] VCT Iterative reconstruction technique Findings: Chronic pleural-parenchymal [...] intravenous or oral contrast. DLP: 480.07 mGy/cm [employer] VCT Iterative reconstruction technique Findings: Chronic pleural-parenchymal [...] recommended, whenclinically appropriate, to exclude this possibility. Telerad EMELIA ([id number]) -------- FINAL REPORT -------- Dictated By: Fawn Levin Dictated Date: 02/23/2025 15:01 ET Assigned Physician: Fawn Levin Reviewed and Electronically Signed By: Fawn Levin Signed Date: 02/23/2025 15:05 ET Workstation ID: [id number] Transcribed By: Self Edit Transcribed Date: 02/23/2025 15:01 ET us Afsaneh KAPOOR IMG CT PROCEDURES Final Resu lt * Lactate, with reflex (02/23/2025 2:25 PM EDT) Pathologist [facility] LACTIC ACID 1.1 0.4 - 2.0 mmol/L LAB CHEMISTRY METHOD 02/23/2025 3:25 PM EDT [facility] Blood Venous blood specimen / Unknown Venipuncture / Unknown 02/23/2025 2:25 PM EDT 02/23/2025 2:35 PM EDT us Afsaneh KAPOOR LAB BLOOD ORDERABLES Final R esult [facility] [address] [place] [address], [place] [phone] * Blood Culture, Peripheral Draw #2 (02/23/2025 2:25 PM EDT) Only the most recent of2 resultswithin the time period is included. Culture, Blood No growth at 5 days 02/28/2025 3:01 PM EDT [facility] Blood Venous blood specimen / Unknown Venipuncture / Unknown 02/23/2025 2:25 PM EDT 02/23/2025 2:35 PM EDT Afsaneh KAPOOR LAB MICROBIOLOGY - GENERAL O RDERABLES Final Result [facility] [address] [place] [address], [place] [phone] * XR Chest 1 View (02/23/2025 2:15 PM EDT) Anatomical Region Laterality Modality Body Radiographic Monserrat ging 02/23/2025 2:33 PM EDT Impressions 02/23/2025 2:37 PM EDT Impression: Stable radiographic appearance of the chest, including volume loss and chronic pleural-parenchymal opacity in the left hemithorax consistent with previously treated lung carcinoma. No acute process identified. Telekarla KAPOOR ([id number]) -------- FINAL REPORT -------- Dictated By: Fawn Levin Dictated Date: 02/23/2025 14:33 ET Assigned Physician: Fawn Levin Reviewed and Electronically Signed By: Fawn Levin Signed Date: 02/23/2025 14:37 ET Workstation ID: [id number] Transcribed By: Self Edit Transcribed Date: 02/23/2025 14:33 ET Narrative 02/23/2025 2:37 PM EDT History: Dyspnea. Personal history of lung carcinoma. Comparison: 07/30/23, thoracic CT 09/09/24 [place], [place] Findings: Portable AP upright chest at [...] lung carcinoma. Comparison: 07/30/23, thoracic CT 09/09/24 [place], [place] Findings: Portable AP upright chest at [...] carcinoma. No acute process identified. Telerad EMELIA ([id number]) -------- FINAL REPORT -------- Dictated By: Fawn Levin Dictated Date: 02/23/2025 14:33 ET Assigned Physician: Fawn Levin Reviewed and Electronically Signed By: Fawn Levin Signed Date: 02/23/2025 14:37 ET Workstation ID: [id number] Transcribed By: Self Edit Transcribed Date: 02/23/2025 14:33 ET Afsaneh KAPOOR IMG XR PROCEDURES Final Resu lt * Urinalysis with reflex microscopic and culture (02/23/2025 2:04 PM EDT) Specific [place] Urine 1.006 1.003 - 1.030 LAB URINALYSIS - AUTOMATED METHOD 02/23/2025 2:17 PM EDT [facility] pH, Urine 7.5 5.0 - 8.0 pH LAB URINALYSIS - AUTOMATED METHOD 02/23/2025 2:17 PM EDT [facility] Leukocytes, Urine Negative Negative LAB URINALYSIS - AUTOMATED METHOD 02/23/2025 2:17 PM EDT [facility] Nitrite, Urine Negative Negative LAB URINALYSIS - AUTOMATED METHOD 02/23/2025 2:17 PM [facility] Protein, Urine Negative <=Trace mg/dL LAB URINALYSIS - AUTOMATED METHOD 02/23/2025 2:17 PM EDT [facility] Glucose, Urine Negative Negative mg/dL LAB URINALYSIS - AUTOMATED METHOD 02/23/2025 2:17 PM EDT [facility] Ketones, Urine Negative Negative mg/dL LAB URINALYSIS - AUTOMATED METHOD 02/23/2025 2:17 PM EDT [facility] Urobilinogen, Urine 0.2 0.2 - 1.0 mg/dL LAB URINALYSIS - AUTOMATED METHOD 02/23/2025 2:17 PM EDT [facility] Bilirubin, Urine Negative Negative LAB URINALYSIS - AUTOMATED METHOD 02/23/2025 2:17 PM EDT [facility] Blood, Urine Negative Negative LAB URINALYSIS - AUTOMATED METHOD 02/23/2025 2:17 PM EDT [facility] Urine Urine specimen obtained by clean catch procedure / Unknown Non-blood Collection / Unknown 02/23/2025 2:04 PM EDT 02/23/2025 2:05 PM EDT Afsaneh KAPOOR LAB URINE ORDERABLES Final R esult [facility] [address] [place] [address], [place] [phone] * Martinez urine culture tube (02/23/2025 2:04 PM EDT) Extra Tube Hold for add-ons. 02/23/2025 4:01 PM EDT [facility] Comment:Auto resulted. Urine Urine specimen obtained by clean catch procedure / Unknown Non-blood Collection / Unknown 02/23/2025 2:04 PM EDT 02/23/2025 2:05 PM EDT Afsaneh KAPOOR LAB URINE ORDERABLES Final R esult [facility] [address] [place] [address], * Troponin I high sensitivity (02/23/2025 1:15 PM EDT) [facility] High Sensitivity Troponin I 25 <=54 ng/L LAB CHEMISTRY METHOD 02/23/2025 2:15 PM EDT [facility] Blood Venous blood specimen / Unknown Venipuncture / Unknown 02/23/2025 1:15 PM EDT 02/23/2025 1:39 PM EDT Narrative [facility] - 02/23/2025 2:15 PM EDT High levels of biotin in samples may falsely decrease hsTroponin values. Use caution when interpreting hsTroponin results in patients taking biotin who exhibit renal impairment (eGFR <60) or in patients taking more than 20 mg/day of biotin. Afsaneh KAPOOR LAB BLOOD ORDERABLES Final R esult [facility] [address] [place] [address], * (ABNORMAL) CBC auto differential (02/23/2025 1:15 PM EDT) [facility] WBC 17.4(H) 4.8 - 10.8 K/mcL LAB HEMETOLOGY METHOD 02/23/2025 1:47 PM EDT [facility] RBC 3.60(L) 3.80 - 4.80 M/mcL LAB HEMETOLOGY METHOD 02/23/2025 1:47 PM EDT [facility] Hemoglobin 11.6 11.5 - 16.0 g/dL LAB HEMETOLOGY METHOD 02/23/2025 1:47 PM EDT [facility] Hematocrit 36.3 35.0 - 47.0 % LAB HEMETOLOGY METHOD 02/23/2025 1:47 PM EDT [facility] MCV 101.7(H) 79.0 - 98.0 FL LAB HEMETOLOGY METHOD 02/23/2025 1:47 PM EDT [facility] MCH 32.5(H) 27.0 - 32.0 pcg LAB HEMETOLOGY METHOD 02/23/2025 1:47 PM EDT [facility] MCHC 32.0 32.0 - 37.0 g/dL LAB HEMETOLOGY METHOD 02/23/2025 1:47 PM EDT [facility] RDW 14.2 11.0 - 15.0 % LAB HEMETOLOGY METHOD 02/23/2025 1:47 PM EDT [facility] Platelets 232 130 - 400 K/mcL LAB HEMETOLOGY METHOD 02/23/2025 1:47 PM [facility] MPV 11.5(H) 7.0 - 11.0 FL LAB HEMETOLOGY METHOD 02/23/2025 1:47 PM EDT [facility] NRBC 0.0 <1.0 % LAB HEMETOLOGY METHOD 02/23/2025 1:47 PM EDT [facility] NRBC Absolute 0.00 <0.10 K/mcL LAB HEMETOLOGY METHOD 02/23/2025 1:47 PM [facility] Neutrophils Relative 87.3 % LAB HEMETOLOGY METHOD 02/23/2025 1:47 PM EDT [facility] Lymphocytes Relative 4.9 % LAB HEMETOLOGY METHOD 02/23/2025 1:47 PM EDT [facility] Monocytes Relative 5.6 % LAB HEMETOLOGY METHOD 02/23/2025 1:47 PM EDT [facility] Eosinophils Relative 0.3 % LAB HEMETOLOGY METHOD 02/23/2025 1:47 PM [facility] Basophils Relative 0.6 % LAB HEMETOLOGY METHOD 02/23/2025 1:47 PM EDT [facility] Immature Granulocytes Relative 1.3 % LAB HEMETOLOGY METHOD 02/23/2025 1:47 PM EDT [facility] Neutrophils Absolute 15.20(H) 1.50 - 7.00 K/mcL LAB HEMETOLOGY METHOD 02/23/2025 1:47 PM EDT [facility] Lymphocytes Absolute 0.85(L) 1.00 - 5.00 K/mcL LAB HEMETOLOGY METHOD 02/23/2025 1:47 PM EDT [facility] Monocytes Absolute 0.98 0.20 - 1.00 K/mcL LAB HEMETOLOGY METHOD 02/23/2025 1:47 PM EDT [facility] Eosinophils Absolute 0.06 0.00 - 0.50 K/mcL LAB HEMETOLOGY METHOD 02/23/2025 1:47 PM EDT [facility] Basophils Absolute 0.10 0.00 - 0.20 K/mcL LAB HEMETOLOGY METHOD 02/23/2025 1:47 PM EDT [facility] Immature Granulocytes Absolute 0.23(H) 0.00 - 0.03 K/mcL LAB HEMETOLOGY METHOD 02/23/2025 1:47 PM EDT [facility] Blood Venous blood specimen / Unknown Venipuncture / Unknown 02/23/2025 1:15 PM EDT 02/23/2025 1:40 PM EDT us Afsaneh KAPOOR LAB BLOOD ORDERABLES Final R esult [facility] [address] [place] [address], * (ABNORMAL) Prothrombin time with INR (02/23/2025 1:15 PM EDT) Protime 14.9(H) 10.6 - 13.9 sec LAB COAGULATION METHOD 02/23/2025 1:52 PM EDT [facility] INR 1.2 LAB COAGULATION METHOD 02/23/2025 1:52 PM EDT [facility] Blood Venous blood specimen / Unknown Venipuncture / Unknown 02/23/2025 1:15 PM EDT 02/23/2025 1:40 PM EDT Afsaneh KAPOOR LAB BLOOD ORDERABLES Final R esult Performing Organization Address [facility] Co de Phone Number [facility] [address] [place] [address], [place] [phone] * Type and screen (02/23/2025 1:15 PM EDT) Pathologist [facility] ABO Group A 02/23/2025 2:47 PM EDT [facility] Rh Type Positive 02/23/2025 2:47 PM EDT [facility] Antibody Screen Negative 02/23/2025 2:47 PM EDT [facility] Blood Venous blood specimen / Unknown Venipuncture / Unknown 02/23/2025 1:15 PM EDT 02/23/2025 1:40 PM EDT us Afsaneh KAPOOR LAB BLOOD BANK TEST ORDERABL ES Final Result Performing Organization Address [facility]/ZIP Co de Phone Number [facility] [address] [place] [address], [place] [phone] * (ABNORMAL) Comprehensive Metabolic Panel (CMP) (02/23/2025 1:15 PM EDT) Sodium 136 133 - 145 mmol/L LAB CHEMISTRY METHOD 02/23/2025 2:13 PM EDT [facility] Potassium 3.5 3.5 - 5.5 mmol/L LAB CHEMISTRY METHOD 02/23/2025 2:13 PM [facility] Chloride 97 96 - 110 mmol/L LAB CHEMISTRY METHOD 02/23/2025 2:13 PM [facility] CO2 33(H) 21 - 32 mmol/L LAB CHEMISTRY METHOD 02/23/2025 2:13 PM [facility] Anion Gap 6 3 - 11 LAB CHEMISTRY METHOD 02/23/2025 2:13 PM [facility] Glucose 100 70 - 100 mg/dL LAB CHEMISTRY METHOD 02/23/2025 2:13 PM [facility] BUN 23 5 - 25 mg/dL LAB CHEMISTRY METHOD 02/23/2025 2:13 PM [facility] Creatinine 0.83 0.50 - 1.10 mg/dL LAB CHEMISTRY METHOD 02/23/2025 2:13 PM [facility] eGFR 71 >=60 mL/min/1. 73m2 LAB CHEMISTRY METHOD 02/23/2025 2:13 PM [facility] Comment:Calculation based on the Chronic Kidney Disease Epidemiology Collaboration (CKD-EPI) equation refit without adjustment for race. BUN/Creatinine Ratio 27.7 LAB CHEMISTRY METHOD 02/23/2025 2:13 PM [facility] Calcium 10.0 8.5 - 10.5 mg/dL LAB CHEMISTRY METHOD 02/23/2025 2:13 PM [facility] AST (SGOT) 29 10 - 42 unit/L LAB CHEMISTRY METHOD 02/23/2025 2:13 PM [facility] ALT (SGPT) 24 10 - 60 unit/L LAB CHEMISTRY METHOD 02/23/2025 2:13 PM [facility] Alkaline Phosphatase 72 42 - 121 unit/L LAB CHEMISTRY METHOD 02/23/2025 2:13 PM [facility] Total Protein 6.9 6.0 - 8.0 g/dL LAB CHEMISTRY METHOD 02/23/2025 2:13 PM EDT [facility] Albumin 3.5 3.2 - 5.0 g/dL LAB CHEMISTRY METHOD 02/23/2025 2:13 PM EDT [facility] Total Bilirubin 0.5 0.0 - 1.4 mg/dL LAB CHEMISTRY METHOD 02/23/2025 2:13 PM EDT [facility] Blood Venous blood specimen / Unknown Venipuncture / Unknown 02/23/2025 1:15 PM EDT 02/23/2025 1:39 PM EDT Afsaneh KAPOOR LAB BLOOD ORDERABLES Final R esult [facility] [address] [place] [address], [place] [phone] * 12-Lead ECG (02/23/2025 1:05 PM EDT) Ventricular Rate ECG 79 BPM GEMUSE Atrial Rate 79 BPM GEMUSE P-R Interval 164 ms GEMUSE QRS Duration 138 ms GEMUSE Q-T Interval 422 ms GEMUSE QTc 483 ms GEMUSE P Wave [place] 68 degrees GEMUSE R [place] -59 degrees GEMUSE T [place] 62 degrees GEMUSE ECG Interpretation Normal sinus rhythm Right bundle branch block Left anterior fascicular block Bifascicular block Abnormal ECG When compared with ECG of 23-NOV-2021 13:05, Right bundle branch block is now Present Confirmed by MARC ABCH ([id number]) on 02/23/2025 6:21:33 PM GEMUSE 02/23/2025 1:05 PM EDT 02/23/2025 6:21 PM EDT Afsaneh KAPOOR ECG ORDERABLES Final Result GEMUSE from Last 3 Months Insurance MEDICARE [facility] Advance Directives Documents on File Type Date Recorded Patient Healthcare Marketer Expl anation Health Care Decision (hx) 10/18/2013 [...] (hx) 10/04/2013 AD LACEY DIRECTIVE Care Teams Test Desk Trouble Locator Relationship Specialty Start Date End Date Caitlyn Bowie MD [address] [place] [id number] PCP - General Internal Medicine 12/10/24
--- OUTSIDE RECORDS SUMMARY | 2025-03-17 13:48 | XMS_ITS | Encounter Summary ---
Author Organization [facility] and [facility] Address [address] [place] [address] Care Team Providers Care Fiberglass Boat Finisher Name Role Phone Caitlyn Bowie MD Primary Care Provider +1- [phone] Encounter Details Date Type Department Care Team (Late st Contact Info) Description 01/07/2014 Documentation [facility] [address] [place] [address] Shilpi Ibarra [address] [place] [address] Social History Tobacco Use Types Packs/Day Years [...] [place] 240 [facility] Building [address] [place], [place] [address] Ronald Mills MD [address] [place] [address] documented as of this encounter Visit Diagnoses Not on filedocumented in this encounter Additional Health Concerns Infection Onset Date Last Indicated Resolved Time COVID-19 03/05/2022 03/05/2022 03/15/2022 7:18 PM EDT documented as of this encounter Care Teams Fiberglass Boat Finisher Relationship Specialty Start Date End Date Caitlyn Bowie MD [address] [place] [address] PCP - General Internal Medicine 05/06/21 Henry Kelly MD Pulmonary Department 175 [facility], [address] [place] [address] Physician Pulmonary Disease 09/06/17 06/22/20 documented as of this encounter
--- OUTSIDE RECORDS SUMMARY | 2025-03-17 13:48 | XMS_ITS | Encounter Summary ---
Author Organization [facility] and [facility] Address [address] [place] [address] Care Team Providers Care Paraffin Plant Operator Name Role Phone aCitlyn Bowie MD Primary Care Provider +1- [phone] Encounter Details Date Type Department Care Team (Late st Contact Info) Description 10/16/[address] [facility] [address] [place] [address], [address] [facility], [address] [place], [place] [address] Suzy Kong MD [address] [place] [phone] Social History Tobacco Use Types Packs/Day [...] 4:00 PM EDT [facility] at [address] [place] [address] Ronald Mills MD 240 [facility] A1 [place] [address] documented as of this encounter Visit Diagnoses Not on filedocumented in this encounter Additional Health Concerns Infection Onset Date Last Indicated Resolved Time COVID-19 03/05/2022 03/05/2022 03/15/2022 7:18 PM EDT documented as of this encounter Care Teams Paraffin Plant Operator Relationship Specialty Start Date End Date Caitlyn Bowie MD 3400 [facility] [address] 1 [place] [address] PCP - General Internal Medicine 05/06/21 Henry Kelly MD Pulmonary Department 175 [facility], [address] [place] [address] Physician Pulmonary Disease 09/06/17 06/22/20 documented as of this encounter
--- OUTSIDE RECORDS SUMMARY | 2025-03-17 13:48 | XMS_ITS | Encounter Summary ---
Author Organization [facility] and [facility] Address [address] [place] [address] Care Team Providers Care Finance Broker Name Role Phone Caitlyn Bowie MD Primary Care Provider +1- [phone] Encounter Details Date Type Department Care Team (Late st Contact Info) Description 03/22/2021 Scanned Document INTERFACE DEFAULT [address] [place] [address] System, Provider Not In Social History Tobacco [...] [facility] 240 [facility] [address] [place] [address] Ronald Mills MD [address] [place] [address] [address] [place] [address] documented as of this encounter Visit Diagnoses Not on filedocumented in this encounter Additional Health Concerns Infection Onset Date Last Indicated Resolved Time COVID-19 03/05/2022 03/05/2022 03/15/2022 7:18 PM EDT Assessment Noted Time PHQ-9 Depression Total Score: 2 11/07/19 19 2:06 PM EDT documented as of this encounter Care Teams Finance Broker Relationship Specialty Start Date End Date Caitlyn Bowie MD [address] [address] PCP - General Internal Medicine 05/06/21 documented as of this encounter
--- OUTSIDE RECORDS SUMMARY | 2025-03-17 13:48 | XMS_ITS | Encounter Summary ---
Author Organization [facility] and [facility] Address [address] [place] [address] Care Team Providers Care Games Manager Name Role Phone Caitlyn Bowie MD Primary Care Provider +1- [phone] Encounter Details Date Type Department Care Team (Late Contact Info) Description 02/02/2021 Scanned Document [facility] Health Information Management [address] [place] [address] External, Provider Social History Tobacco Use Types [...] [facility] Building [address] [place], [place] [phone] Ronald Mills MD [address] [place] [address] [address] [place] [address] documented as of this encounter Visit Diagnoses Not on filedocumented in this encounter Additional Health Concerns Infection Onset Date Last Indicated Resolved Time COVID-19 03/05/2022 03/05/2022 03/15/2022 7:18 PM EDT Assessment Noted Time PHQ-9 Depression Total Score: 2 11/07/19 19 2:06 PM EDT documented as of this encounter Care Teams Games Manager Relationship Specialty Start Date End Date Caitlyn Bowie MD [address] [address] PCP - General Internal Medicine 05/06/21 documented as of this encounter
--- OUTSIDE RECORDS SUMMARY | 2025-03-17 13:48 | XMS_ITS | Encounter Summary ---
Author Organization [facility] and [facility] Address [address] [place] [address] Care Team Providers Care Radioactive Waste Disposal Dispatcher Name Role Phone Caitlyn Bowie MD Primary Care Provider +1- [phone] Encounter Details Date Type Department Care Team (Late st Contact Info) Description 03/23/2021 Scanned Document INTERFACE DEFAULT [address] [place] [address] System, Provider Not In Social History Tobacco [...] [facility] 240 [facility] Building [address] [place] [address] Ronald Mills MD [address] [place] [address] [address] [place] [address] documented as of this encounter [...] documented as of this encounter Care Teams Radioactive Waste Disposal Dispatcher Relationship Specialty Start Date End Date Caitlyn Bowie MD [address] [address] PCP - General Internal Medicine 05/06/21 documented as of this encounter
--- OUTSIDE RECORDS SUMMARY | 2025-03-17 13:48 | XMS_ITS | Encounter Summary ---
Author Organization [facility] and [facility] Address [address] [place] [address] Care Team Providers Care Lens Maker Name Role Phone Caitlyn Bowie MD Primary Care Provider +1- [phone] Encounter Details Date Type Department Care Team (Late st Contact Info) Description 04/10/2021 Scanned Document INTERFACE DEFAULT [address] [place] [address] System, Provider Not In Social History Tobacco [...] [facility] 240 [facility] Building [address] [place] [address] Ronald Mills MD [address] [place] [address] [address] [place] [address] documented as of this encounter [...] as of this encounter Care Teams Lens Maker Relationship Specialty Start Date End Date Caitlyn Bowie MD [address] [address] PCP - General Internal Medicine 05/06/21 documented as of this encounter
--- OUTSIDE RECORDS SUMMARY | 2025-03-17 13:48 | XMS_ITS | Encounter Summary ---
Author Organization [facility] and [facility] Address [address] [place] [address] Care Team Providers Care Hairspring Inspector Name Role Phone Caitlyn Bowie MD Primary Care Provider +1- [phone] Encounter Details Date Type Department Care Team (Late st Contact Info) Description 04/11/2021 Scanned Document INTERFACE DEFAULT [address] [place] [address] System, Provider Not In Social History Tobacco [...] [facility] 240 [facility] Building [address] [place], [place] [address] Ronald Mills MD [address] [place] [address] [address] [place] [address] documented as of this encounter [...] documented as of this encounter Care Teams Hairspring Inspector Relationship Specialty Start Date End Date Caitlyn Bowie MD [address] [address] PCP - General Internal Medicine 05/06/21 documented as of this encounter
--- OUTSIDE RECORDS SUMMARY | 2025-03-17 13:48 | XMS_ITS | Encounter Summary ---
Author Organization [facility] and [facility] Address [address] [place] [address] Care Team Providers Care Deck Lid Fitter Name Role Phone Caitlyn Bowie MD Primary Care Provider +1- [phone] Encounter Details Date Type Department Care Team (Late st Contact Info) Description 03/11/2021 Scanned Document INTERFACE DEFAULT [address] [place] [address] System, Provider Not In Social History Tobacco [...] [facility] 240 [facility] Building [address] [place], [place] [address] Ronald Mills MD [address] [place] [address] [address] [place] [address] documented as [...] documented as of this encounter Care Teams Deck Lid Fitter Relationship Specialty Start Date End Date Caitlyn Bowie MD [facility] [address] [address] PCP - General Internal Medicine 05/06/21 documented as of this encounter
--- OUTSIDE RECORDS SUMMARY | 2025-03-17 13:48 | XMS_ITS | Encounter Summary ---
Author Organization [facility] Address [address] [place] [address] Care Team Providers Care Police Clerk Name Role Phone Caitlyn Bowie MD Primary Care Provider +1- [phone] Encounter Details Date Type Department Care Team (Late st Contact Info) Description 03/14/2021 Scanned Document INTERFACE DEFAULT [address] [place] [address] System, Provider Not In Social History Tobacco [...] 240 [facility] Building [address] [place], [place] [address] Ronald Mills MD [address] [place] [address] [address] [place] [address] documented as of this encounter [...] documented as of this encounter Care Teams Police Clerk Relationship Specialty Start Date End Date Caitlyn Bowie MD [address] [address] PCP - General Internal Medicine 05/06/21 documented as of this encounter
--- OUTSIDE RECORDS SUMMARY | 2025-03-17 13:48 | XMS_ITS | Encounter Summary ---
Author Organization [facility] and [facility] Address [address] [place] [address] Care Team Providers Care Acquisitions Librarian Name Role Phone Caitlyn Bowie MD Primary Care Provider +1- [phone] Encounter Details Date Type Department Care Team (Late st Contact Info) Description 03/24/2021 Scanned Document INTERFACE DEFAULT [address] [place] [address] System, Provider Not In Social History Tobacco [...] [facility] 240 [facility] Building [address] [place] [address] Ronald Mills MD [address] [place] [address] [address] [place] [address] documented as of this encounter Visit Diagnoses Not on filedocumented in this encounter Additional Health Concerns Infection Onset Date Last Indicated Resolved Time COVID-19 03/05/2022 03/05/2022 03/15/2022 7:18 PM EDT Assessment Noted Time PHQ-9 Depression Total Score: 2 11/07/19 19 2:06 PM EDT documented as of this encounter Care Teams Acquisitions Librarian Relationship Specialty Start Date End Date Catilyn Bowie MD [address] [address] PCP - General Internal Medicine 05/06/21 documented as of this encounter
--- OUTSIDE RECORDS SUMMARY | 2025-03-17 13:48 | XMS_ITS | Encounter Summary ---
Author Organization [facility] and [facility] Address [address] [place] [address] Care Team Providers Care Garment Liner Name Role Phone Caitlyn Bowie MD Primary Care Provider +1- [phone] Encounter Details Date Type Department Care Team (Late st Contact Info) Description 10/07/2013 Scanned Document [facility] at [address] [address] Suzy Kong MD [address] [place] [address] Social History Tobacco Use Types Packs/Day [...] [facility] 240 [facility] Building A [address] [place], [place] [address] Ronald Mills MD 240 [facility] A1 [place] [address] documented as of this encounter Visit Diagnoses Not on filedocumented in this encounter Additional Health Concerns Infection Onset Date Last Indicated Resolved Time COVID-19 03/05/2022 03/05/2022 03/15/2022 7:18 PM EDT documented as of this encounter Care Teams Garment Liner Relationship Specialty Start Date End Date Caitlyn Bowie MD [address] [facility] [address] 1 [place] [address] PCP - General Internal Medicine 05/06/21 Henry Kelly MD Pulmonary Department 175 [facility], [address] [place] [address] Physician Pulmonary Disease 09/06/17 06/22/20 documented as of this encounter
--- OUTSIDE RECORDS SUMMARY | 2025-03-17 13:48 | XMS_ITS | Encounter Summary ---
Author Organization [facility] Address [address] [place] [address] Phone Care Team Providers Care Materials Development Engineer Name Role Phone Caitlyn Bowie MD Primary Care Provider +1- [phone] Encounter Details Date Type Department Care Team (Late Contact Info) Description 12/12/2024 Documentation Only [facility] [address] [place] [address] Marina Abdi [address] [place] [address] Social History Tobacco Use Types [...] Visit [facility] [address] [place] [address] Rubén Ashraf MD [address] [place] [address] [place] [address] documented as of this encounter Visit Diagnoses Not on filedocumented in this encounter Care Teams Materials Development Engineer Relationship Specialty Start Date End Date Caitlyn Bowie MD [address] [place], [place] PCP - General Internal Medicine 09/24/24 documented as of this encounter
--- OUTSIDE RECORDS SUMMARY | 2025-03-17 13:48 | XMS_ITS | Encounter Summary ---
Author Organization [facility] and [facility] Address [address] [place] [address] Care Team Providers Care Mixing Tank Operator Name Role Phone Caitlyn Bowie MD Primary Care Provider +1- [phone] Encounter Details Date Type Department Care Team (Late st Contact Info) Description 03/01/2021 Scanned Document INTERFACE DEFAULT [address] [place] [address] System, Provider Not In Social History Tobacco [...] [facility] Building [address] [place] [address] Ronald Mills MD [address] [place] [address] [address] [place] [address] documented as of this encounter Visit Diagnoses Not on filedocumented in this encounter Additional Health Concerns Infection Onset Date Last Indicated Resolved Time COVID-19 03/05/2022 03/05/2022 03/15/2022 7:18 PM EDT Assessment Noted Time PHQ-9 Depression Total Score: 2 11/07/19 19 2:06 PM EDT documented as of this encounter Care Teams Mixing Tank Operator Relationship Specialty Start Date End Date Caitlyn Bowie MD [address] [address] PCP - General Internal Medicine 05/06/21 documented as of this encounter
--- OUTSIDE RECORDS SUMMARY | 2025-03-17 13:48 | XMS_ITS | Encounter Summary ---
Author Organization [facility] and [facility] Address [address] [place] [address] Care Team Providers Care Warehouse Insulation Worker Name Role Phone Caitlyn Bowie MD Primary Care Provider +1- [phone] Encounter Details Date Type Department Care Team (Late st Contact Info) Description 02/24/2021 Scanned Document INTERFACE DEFAULT [address] [place] [address] System, Provider Not In Social History Tobacco [...] [facility] Building [address] [place] [address] Ronald Mills MD [address] [place] [address] [address] [place] [address] documented as of this encounter [...] as of this encounter Care Teams Warehouse Insulation Worker Relationship Specialty Start Date End Date Caitlyn Bowie MD [address] [address] PCP - General Internal Medicine 05/06/21 documented as of this encounter
--- OUTSIDE RECORDS SUMMARY | 2025-03-17 13:48 | XMS_ITS | Encounter Summary ---
Author Organization [facility] Address [address] [place] [address] Care Team Providers Care Brand Advocate Name Role Phone Caitlyn Bowie MD Primary Care Provider +1- [phone] Encounter Details Date Type Department Care Team (Late st Contact Info) Description 08/23/2017 Scanned Document [facility] Health Information Management [address] [place] [address] External, Provider Social History Tobacco Use Types [...] [facility] 240 [facility] Building [address] [place], [place] [address] Ronald Mills MD [address] [place] [address] [address]1 [place] [address] documented as of this encounter [...] documented as of this encounter Care Teams Brand Advocate Relationship Specialty Start Date End Date Caitlyn Bowie MD 3400 [facility] 1 [place] [address] PCP - General Internal Medicine 05/06/21 Henry Kelly MD Pulmonary Department 175 [facility], [address] [place] [address] Physician Pulmonary Disease 09/06/17 06/22/20 documented as of this encounter
--- OUTSIDE RECORDS SUMMARY | 2025-03-17 13:48 | XMS_ITS | Encounter Summary ---
Author Organization [facility] Address [address] [place] [address] Care Team Providers Care Health Sciences Manager Name Role Phone Caitlyn Bowie MD Primary Care Provider +1- [phone] Encounter Details Date Type Department Care Team (Late st Contact Info) Description 01/26/2018 Scanned Document [facility] Health Information Management [address] [place] [address] External, Provider Social History Tobacco Use Types [...] [facility] 240 [facility] Building [address] [place], [place] [address] Ronald Mills MD 240 [facility] A1 [place] [address] documented as of this encounter Visit Diagnoses Not on filedocumented in this encounter Additional Health Concerns Infection Onset Date Last Indicated Resolved Time COVID-19 03/05/2022 03/05/2022 03/15/2022 7:18 PM EDT documented as of this encounter Care Teams Health Sciences Manager Relationship Specialty Start Date End Date Caitlyn Bowie MD 3400 [facility] 1 [place] [address] PCP - General Internal Medicine 05/06/21 Henry Kelly MD Pulmonary Department 175 [facility], [address] [place] [address] Physician Pulmonary Disease 09/06/17 06/22/20 documented as of this encounter
--- OUTSIDE RECORDS SUMMARY | 2025-03-17 13:48 | XMS_ITS | Encounter Summary ---
Author Organization [facility] and [facility] Address [address] [place] [address] Care Team Providers Care First Coat Sander Name Role Phone Caitlyn Bowie MD Primary Care Provider +1- [phone] Encounter Details Date Type Department Care Team (Late st Contact Info) Description 09/18/2020 Scanned Document INTERFACE DEFAULT [address] [place] [address] System, Provider Not In Social History Tobacco [...] [facility] 240 [facility] Building [address] [place] [address] Ronald Mills MD [address] [place] [address] [address]1 [place] [address] documented as of this encounter Visit Diagnoses Not on filedocumented in this encounter Additional Health Concerns Infection Onset Date Last Indicated Resolved Time COVID-19 03/05/2022 03/05/2022 03/15/2022 7:18 PM EDT Assessment Noted Time PHQ-9 Depression Total Score: 2 11/07/19 19 2:06 PM EDT documented as of this encounter Care Teams First Coat Sander Relationship Specialty Start Date End Date Caitlyn Bowie MD [address] [address] PCP - General Internal Medicine 05/06/21 documented as of this encounter
--- OUTSIDE RECORDS SUMMARY | 2025-03-17 13:48 | XMS_ITS | Encounter Summary ---
Author Organization [facility] Address [address] [place] [address] Care Team Providers Care Commissary Worker Name Role Phone Caitlyn Bowie MD Primary Care Provider +1- [phone] Encounter Details Date Type Department Care Team (Late st Contact Info) Description 03/16/2021 Scanned Document INTERFACE DEFAULT [address] [place] [address] System, Provider Not In Social History Tobacco [...] [facility] 240 [facility] Building [address] [place] [address] Ronald Mills MD [address] [place] [address] [address] [place] [address] documented as of this encounter Visit Diagnoses Not on filedocumented in this encounter Additional Health Concerns Infection Onset Date Last Indicated Resolved Time COVID-19 03/05/2022 03/05/2022 03/15/2022 7:18 PM EDT Assessment Noted Time PHQ-9 Depression Total Score: 2 11/07/19 19 2:06 PM EDT documented as of this encounter Care Teams Commissary Worker Relationship Specialty Start Date End Date Caitlyn Bowie MD [address] [address] PCP - General Internal Medicine 05/06/21 documented as of this encounter
--- OUTSIDE RECORDS SUMMARY | 2025-03-17 13:48 | XMS_ITS | Encounter Summary ---
Author Organization [facility] Address [address] [place] [address] Care Team Providers Care Commercial Real Estate Paralegal Name Role Phone Caitlyn Bowie MD Primary Care Provider +1- [phone] Encounter Details Date Type Department Care Team (Late st Contact Info) Description 02/11/2021 Scanned Document INTERFACE DEFAULT [address] [place] [address] System, Provider Not In Social History Tobacco [...] at [facility] 240 [facility] Building [address] [place] [address] Ronald Mills MD [address] [place] [address] [address] [place] [address] documented as of this encounter [...] this encounter Care Teams Commercial Real Estate Paralegal Relationship Specialty Start Date End Date Caitlyn Bowie MD [address] [address] PCP - General Internal Medicine 05/06/21 documented as of this encounter
--- OUTSIDE RECORDS SUMMARY | 2025-03-17 13:48 | XMS_ITS | Encounter Summary ---
Author Organization [facility] Address [address] [place] [address] Care Team Providers Care Workforce Development Vice President Name Role Phone Caitlyn Bowie MD Primary Care Provider +1- [phone] Encounter Details Date Type Department Care Team (Late st Contact Info) Description 01/26/2018 Scanned Document [facility] Health Information Management [address] [place] [address] External, Provider Social History Tobacco Use Types [...] 240 [facility] Building [address] [place], [place] [address] Ronald Mills MD [address] [place] [address] [address] [place] [address] documented as of this encounter [...] as of this encounter Care Teams Workforce Development Vice President Relationship Specialty Start Date End Date Caitlyn Bowie MD 3400 [facility] 1 [place] [address] PCP - General Internal Medicine 05/06/21 Henry Kelly MD Pulmonary Department 175 [facility], [address] [place] [address] Physician Pulmonary Disease 09/06/17 06/22/20 documented as of this encounter
--- OUTSIDE RECORDS SUMMARY | 2025-03-17 13:49 | XMS_ITS | Encounter Summary ---
Author Organization [facility] and [facility] Address [address] [place] [address] Care Team Providers Care Civil Engineer Land Development Name Role Phone Caitlyn Bowie MD Primary Care Provider +1- [phone] Encounter Details Date Type Department Care Team (Late st Contact Info) Description 02/03/2021 Scanned Document INTERFACE DEFAULT [address] [place] [address] System, Provider Not In Social History Tobacco [...] [facility] 240 [facility] [address] [place], [place] [phone] Ronald Mills MD [address] [place] [address] [address] [place] [address] documented as of this encounter [...] as of this encounter Care Teams Civil Engineer Land Development Relationship Specialty Start Date End Date Caitlyn Bowie MD [address] [address] PCP - General Internal Medicine 05/06/21 documented as of this encounter
--- OUTSIDE RECORDS SUMMARY | 2025-03-17 13:49 | XMS_ITS | Encounter Summary ---
Author Organization [facility] and [facility] Address [address] [place] [address] Care Team Providers Care Automobile Mechanic Supervisor Name Role Phone Caitlyn Bowie MD Primary Care Provider +1- [phone] Encounter Details Date Type Department Care Team (Late st Contact Info) Description 07/31/2015 Scanned Document [facility] Health Information Management [address] [place] [address] External, Provider Social History Tobacco Use Types [...] [facility] 240 [facility] Building [address] [place], [place] [id number] Ronald Mills MD 240 [facility] [address] [place] [address] documented as of this encounter Procedures Procedure Name Priority Date/Time Associated Diagnosis Comments NUC MED/PET RESULT SCAN Routine 07/31/2015 documented in this encounter Results * Nuc Med/PET Result Scan (07/31/2015) us Provider External IMG SCAN REPORTS Edited Result - Final [facility] [place], [place], [facility] documented in this encounter Visit Diagnoses Not on filedocumented in this encounter Additional Health Concerns Infection Onset Date Last Indicated Resolved Time COVID-19 03/05/2022 03/05/2022 03/15/2022 7:1 8 PM EDT documented as of this encounter Care Teams Automobile Mechanic Supervisor Relationship Specialty Start Date End Date Caitlyn Bowie MD 3400 [facility] 1 [place] [address] PCP - General Internal Medicine 05/06/21 Henry Kelly MD Pulmonary Department 175 [facility], [address] [place] [address] Physician Pulmonary Disease 09/06/17 06/22/20 documented as of this encounter
--- OUTSIDE RECORDS SUMMARY | 2025-03-17 13:49 | XMS_ITS | Encounter Summary ---
Author Organization [facility] and [facility] Address [address] [place] [address] Care Team Providers Care Book Sorter Name Role Phone Caitlyn Bowie MD Primary Care Provider +1- [phone] Encounter Details Date Type Department Care Team (Late st Contact Info) Description 01/26/2018 Scanned Document [facility] Health Information Management [address] [place] [address] External, Provider Social History Tobacco Use Types [...] [facility] 240 [facility] Building [address] [place], [place] [phone] Ronald Mills MD [address] [place] [address] [address] [place] [address] documented as of this [...] as of this encounter Care Teams Book Sorter Relationship Specialty Start Date End Date Caitlyn Bowie MD 3400 [facility] 1 [place] [address] PCP - General Internal Medicine 05/06/21 Henry Kelly MD Pulmonary Department 175 [facility], [address] [place] [address] Physician Pulmonary Disease 09/06/17 06/22/20 documented as of this encounter
--- OUTSIDE RECORDS SUMMARY | 2025-03-17 13:49 | XMS_ITS | Encounter Summary ---
Author Organization [facility] Address [address] [place] [address] Care Team Providers Care Asphalt Machine Operator Name Role Phone Caitlyn Bowie MD Primary Care Provider +1- [phone] Encounter Details Date Type Department Care Team (Late st Contact Info) Description 01/27/2018 Scanned Document [facility] Health Information Management [address] [place] [address] External, Provider Social History Tobacco Use Types [...] [facility] [address] [place], [place] [phone] Ronald Mills MD 240 [facility] A1 [place] [address] documented as of this encounter Visit Diagnoses Not on filedocumented in this encounter Additional Health Concerns Infection Onset Date Last Indicated Resolved Time COVID-19 03/05/2022 03/05/2022 03/15/2022 7:18 PM EDT documented as of this encounter Care Teams Asphalt Machine Operator Relationship Specialty Start Date End Date Caitlyn Bowie MD 3400 [facility] 1 [place] [address] PCP - General Internal Medicine 05/06/21 Henry Kelly MD Pulmonary Department 175 [facility], [address] [place] [address] Physician Pulmonary Disease 09/06/17 06/22/20 documented as of this encounter
--- OUTSIDE RECORDS SUMMARY | 2025-03-17 13:49 | XMS_ITS ---
Author Organization [facility] Care Team Providers Care Upper Trimmer Name Role Phone Mathew Gonzalez Unavailable Unavailable Rosales Black Unavailable Unavailable Waleska Ashby Unavailable Unavailable Akosua Cr Unavailable Unavailable Brenda Mukherjee Unavailable Unavailable Allergies and adverse reactions Code CodeSystem Substance Reaction Severity StartDate Concern Status 49518 RXNORM Vancomycin Unknown 01/17/[address] Sulfa Antibiotics Unknown 01/17/[address] Shrimp Unknown 01/17/[address] Penicillins Unknown 01/17/2024 activ e 491682 RXNORM Moxifloxacin Unknown 01/17/2024 active 7052 RXNORM Morphine Unknown 01/17/2024 active 6922 RXNORM metroNIDAZOLE Unknown 01/17/2024 active 24448 RXNORM levoFLOXacin Unknown 01/17/[address] Iodinated Contra st Media Unknown 01/17/2024 active 4721646 RXNORM Gentamicin Unknown 01/17/2024 active 4053 RXNORM Erythromycin Unknown 01/17/2024 active 3355 RXNORM Diclofenac Unknown 01/17/2024 active DIATRIZOATE SODIUM/POLYSORBATE 80 Unknown 01/17/2024 active DIATRIZOATE MEGLUMINE/IODIPAMIDE MEGLU Unknown 01/17/2024 active 2582 RXNORM Clindamycin Unknown 01/17/2024 active 87376 RXNORM Clarithromycin Unknown 01/17/2024 active 2551 RXNORM Ciprofloxacin Unknown 01/17/[address] Bee pollen Unknown 01/17/2024 active 1331 RXNORM Barium Sulfate Unknown 01/17/2024 active 1426970 RXNORM Barium Iodide Unknown 01/17/2024 active 91460 RXNORM Azithromycin Unknown 01/17/[address] Avocado Unknown 01/17/2024 active Care Team Name Role Address Phone Organization Dates Brenda Mukherjee PCP 819 [facility] 1, [place], [address], [facility] (Office): : [facility] 01/17/2024 - 02/01/2024 Mathew Gonzalez [address] [place] [address], [address], [facility] (Office): [facility] 01/17/2024 - 02/01/2024 Rosales Black [address], [address], [facility] (Office): : : [facility] 01/17/2024 - 02/01/2024 Waleska Ashby 819 [facility] 1, [place], [address], [facility] (Office): : [facility] 01/17/2024 - 02/01/2024 Akosua Cr 819 [facility] 1, [place], [address], [facility] (Office): : [facility] 01/17/2024 - 02/01/2024 Goals Section Goals Description Status Target Date I am currently not receiving medication or treatments for this diagnosis. Active 02/06/2024 I am currently receiving oxy gen therapies and will comply through the review date. Active 02/06/2024 I will be compliant with lab s & diagnostics if ordered by my doctor through the review date. Active 02/06/2024 I will be compliant with lab s & diagnostics if ordered by my doctor through the review date. Active 02/06/2024 I will be compliant with lab s & diagnostics if ordered by my doctor through the review date. Active 02/06/2024 I will be compliant with lab s & diagnostics if ordered by my doctor through the review date. Active 02/06/2024 I will be compliant with lab s & diagnostics if ordered by my doctor through the review date. Active 02/06/2024 I will be compliant with lab s & diagnostics if ordered by my doctor through the review date. Active 02/06/2024 I will be compliant with the non medication therapies, medication regimen & therapies prescribed by my doctor. I will be free of any discomfort or adverse side effects to therapies through the review date. Active 02/06/2024 I will be compliant with the non medication therapies, medication regimen & therapies prescribed by my doctor. I will be free of any discomfort or adverse side effects to therapies through the review date. Active 02/06/2024 I will be compliant with the non medication therapies, medication regimen & therapies prescribed by my doctor. I will not have an interruption in normal activities due to pain through the review date. I will be free of any discomfort or adverse side effects to therapies through the review date. Active 02/06/2024 I will be compliant with the non-pharmacological therapies, medication regimen & therapies prescribed by my doctor. I will not have an interruption in normal activities due to pain through the review date. I will be free of any discomfort or adverse side effects to therapies through the review date. Active 02/06/20 24 I will be free from diarrhea and will have no dehydration through next review Active 02/06/2024 I will be free of falls through the review date. Active 02/06/2024 I will be free of major decl ine in ADL status through the review date. Active 02/06/2024 I will comply with GDR recommendations through r eview date. Active 02/06/2024 I will comply with GDR recommendations through r eview date. Active 02/06/2024 I will comply with nutrition al supplements that help with healing through review date. Active 02/06/2024 I will express satisfaction with the type of activities I am involved in when asked through the review date. Active 2023 I will verbalize adequate re lief of pain or ability to cope with incompletely relieved pain through the review date. Active I will wear my visual aid(s) as I want through r eview date. Active 02/06/2024 My dignity & privacy will be maintained through the review date. Active 02/06/2024 Mental Status Section Date Assessment Total Score Description 02/01/2024 CAM 0 No delirium ind icated 01/21/2024 BIMS 14 cognitively int act CAM 0 No delirium ind icated PHQ-9 00 Problems Problem # Description Date of onset Resolved Date Code CodeSystem Concern Status 1 ACQUIRED ABSENCE OF LUNG [PART OF] 01/17/[address] active 2 ANTIPHOSPHOLIPID SYNDROME 01/17/[address] active 3 ANXIETY DISORDER, UNSPECIFIED 01/17/[address] active 4 ATHEROSCLEROTIC HEART DISEASE OF IONE CORONARY ARTERY WITHOUT ANGINA PECTORIS 01/17/[address] active 5 CELLULITIS OF RIGHT LOWER LIMB 01/17/[address] active 6 CHRONIC DIASTOLIC (CONGESTIVE) HEART FAILURE 01/17/[address] active 7 CHRONIC OBSTRUCTIVE PULMONARY DISEASE, UNSPECIFIED 01/17/[address] active 8 CHRONIC RESPIRATORY FAILURE WITH HYPERCAPNIA 01/17/[address] active 9 CHRONIC RESPIRATORY FAILURE WITH HYPOXIA 01/17/[address] active 10 COMPLICATION OF SURGICAL AND MEDICAL CARE, UNSPECIFIED, SUBSEQUENT ENCOUNTER 01/17/[address] active 11 DEPRESSION, UNSPECIFIED 01/17/[address] active 12 ESSENTIAL (PRIMARY) HYPERTENSION 01/17/[address] active 13 GASTRO-ESOPHAGEAL REFLUX DISEASE WITHOUT ESOPHAGITIS 01/17/[address] active 14 HYPERLIPIDEMIA, UNSPECIFIED 01/17/[address] active 15 HYPOTHYROIDISM, UNSPECIFIED 01/17/[address] active 16 LOCAL INFECTION OF THE SKIN AND SUBCUTANEOUS TISSUE, UNSPECIFIED 01/17/[address] active 17 OBSTRUCTIVE SLEEP APNEA (ADULT) (PEDIATRIC) 01/17/[address] active 18 OTHER ABNORMALITIES OF GAIT AND MOBILITY 01/17/[address] active 19 OTHER PRIMARY THROMBOPHILIA 01/17/[address] active 20 PERSONAL HISTORY OF OTHER MALIGNANT NEOPLASM OF BRONCHUS AND LUNG 01/17/[address] active 21 PERSONAL HISTORY OF OTHER VENOUS THROMBOSIS AND EMBOLISM 01/17/[address] active 22 POST-TRAUMATIC STRESS DISORDER, UNSPECIFIED 01/17/[address] active 23 PULMONARY HYPERTENSION, UNSPECIFIED 01/17/[address] active 24 WEAKNESS 01/17/[address] active Reason for Referral No Reasons for Referral Entered Social History Social History Observation Description Start Date End Date Code Code System Current Smoking Status Tobacco smoking consumption unknown 699413436 SNOMED CT Sex Assigned At Female 1945 91741-5 [facility] Gender Identity Vital Signs Code Code System Vitals Name Values and Units Timing Information 8867-4 [facility] Heart rate Value=88.0 Units=/min 44613-4 [facility] Pain Level Value=0.0 02/01/2024 10224-2 [facility] Weight Xwinc=651.7 Units=Lbs 8462-4 [facility] Blood Pressure-Diastolic Value=55 Un its=mmHg 01/31/2024 8480-6 [facility] Blood Pressure-Systolic Oaobe=207 Un its=mmHg 01/31/2024 8310-5 [facility] Body Temperature Value=97.6 Units= F 01/31/2024 91761-2 [facility] O2 % BldC Oximetry Value=99.0 Units= % 01/31/2024 9279-1 [facility] Respiratory Rate Value=20.0 Units=/m in 01/29/2024 8302-2 [facility] Height Value=63.0 Units=Inches 01/18/2024
--- OUTSIDE RECORDS SUMMARY | 2025-03-17 13:49 | XMS_ITS | Encounter Summary ---
Author Organization [facility] and [facility] Address [address] [place] [address] Care Team Providers Care Vegetable Farm Worker Name Role Phone Caitlyn Bowie MD Primary Care Provider +1- [phone] Encounter Details Date Type Department Care Team (Late st Contact Info) Description 01/13/2021 Scanned Document [facility] at [address] [address] Ronald Mills MD [address] [address] Social History Tobacco Use Types [...] PM EDT Telemedicine [facility] at [address] [place] [address] Ronald Mills MD [address] [address] documented as of this encounter [...] as of this encounter Care Teams Vegetable Farm Worker Relationship Specialty Start Date End Date Caitlyn Bowie MD [address] [address] PCP - General Internal Medicine 05/06/21 documented as of this encounter
--- OUTSIDE RECORDS SUMMARY | 2025-03-17 13:49 | XMS_ITS | Encounter Summary ---
Author Organization [facility] and [facility] Address [address] [place] [address] Care Team Providers Care Recreation Facility Manager Name Role Phone Caitlyn Bowie MD Primary Care Provider +1- [phone] Encounter Details Date Type Department Care Team (Late st Contact Info) Description 11/07/2014 Scanned Document [facility] Health Information Management [address] [place] [address] External, Provider Social History Tobacco Use Types [...] [facility] 240 [facility] Building [address] [place], [place] [address] Ronald Mills MD 240 [facility] A1 [place] [address] documented as of this encounter Visit Diagnoses Not on filedocumented in this encounter Additional Health Concerns Infection Onset Date Last Indicated Resolved Time COVID-19 03/05/2022 03/05/2022 03/15/2022 7:18 PM EDT documented as of this encounter Care Teams Recreation Facility Manager Relationship Specialty Start Date End Date Caitlyn Bowie MD 3400 [facility] 1 [place] [address] PCP - General Internal Medicine 05/06/21 Henry Kelly MD Pulmonary Department 175 [facility], [address] [place] [address] Physician Pulmonary Disease 09/06/17 06/22/20 documented as of this encounter
--- OUTSIDE RECORDS SUMMARY | 2025-03-17 13:49 | XMS_ITS | Encounter Summary ---
Author Organization [facility] and [facility] Address [address] [place] [address] Care Team Providers Care Drill Rig Operator Helper Name Role Phone Caitlyn Bowie MD Primary Care Provider +1- [phone] Encounter Details Date Type Department Care Team (Late st Contact Info) Description 04/16/2018 Scanned Document [facility] Health Information Management [address] [place] [address] External, Provider Social History Tobacco Use Types [...] [facility] 240 [facility] Building [address] [place], [place] [address] Ronald Mills MD 240 [facility] A1 [place] [address] documented as of this encounter Visit Diagnoses Not on filedocumented in this encounter Additional Health Concerns Infection Onset Date Last Indicated Resolved Time COVID-19 03/05/2022 03/05/2022 03/15/2022 7:18 PM EDT documented as of this encounter Care Teams Drill Rig Operator Helper Relationship Specialty Start Date End Date Caitlyn Bowie MD 3400 [facility] 1 [place] [address] PCP - General Internal Medicine 05/06/21 Henry Kelly MD Pulmonary Department 175 [facility], [address] [place] [address] Physician Pulmonary Disease 09/06/17 06/22/20 documented as of this encounter
--- OUTSIDE RECORDS SUMMARY | 2025-03-17 13:49 | XMS_ITS | Encounter Summary ---
Author Organization [facility] and [facility] Address [address] [place] [address] Care Team Providers Care Ballet Soloist Name Role Phone Caitlyn Bowie MD Primary Care Provider +1- [phone] Encounter Details Date Type Department Care Team (Late st Contact Info) Description 01/28/2018 Scanned Document [facility] Health Information Management [address] [place] [address] External, Provider Social History Tobacco Use Types [...] [facility] 240 [facility] Building [address] [place], [place] [phone] Ronald Mills MD 240 [facility] A1 [place] [address] documented as of this encounter Visit Diagnoses Not on filedocumented in this encounter Additional Health Concerns Infection Onset Date Last Indicated Resolved Time COVID-19 03/05/2022 03/05/2022 03/15/2022 7:18 PM EDT documented as of this encounter Care Teams Ballet Soloist Relationship Specialty Start Date End Date Caitlyn Bowie MD 3400 [facility] 1 [place] [address] PCP - General Internal Medicine 05/06/21 Henry Kelly MD Pulmonary Department 175 [facility], [address] [place] [address] Physician Pulmonary Disease 09/06/17 06/22/20 documented as of this encounter
--- OUTSIDE RECORDS SUMMARY | 2025-03-17 13:49 | XMS_ITS | Encounter Summary ---
Author Organization [facility] Address [address] [place] [address] Care Team Providers Care Calibration Technician Name Role Phone Caitlyn Bowie MD Primary Care Provider +1- [phone] Encounter Details Date Type Department Care Team (Late st Contact Info) Description 12/21/2020 Scanned Document INTERFACE DEFAULT [address] [place] [address] System, Provider Not In Social History Tobacco [...] [facility] 240 [facility] [address] [place] [address] Ronald Mills MD [address] [place] [address] [address] [place] [address] documented as of this encounter Visit Diagnoses Not on filedocumented in this encounter Additional Health Concerns Infection Onset Date Last Indicated Resolved Time COVID-19 03/05/2022 03/05/2022 03/15/2022 7:18 PM EDT Assessment Noted Time PHQ-9 Depression Total Score: 2 11/07/19 19 2:06 PM EDT documented as of this encounter Care Teams Calibration Technician Relationship Specialty Start Date End Date Caitlyn Bowie MD [address] [address] PCP - General Internal Medicine 05/06/21 documented as of this encounter
--- OUTSIDE RECORDS SUMMARY | 2025-03-17 13:49 | XMS_ITS | Encounter Summary ---
Author Organization [facility] Address [address] [place] [address] Care Team Providers Care Pressure Tank Operator Name Role Phone Caitlyn Bowie MD Primary Care Provider +1- [phone] Encounter Details Date Type Department Care Team (Late st Contact Info) Description 11/09/2014 Scanned Document [facility] Health Information Management [address] [place] [address] External, Provider Social History Tobacco Use Types [...] [facility] 240 [facility] Building [address] [employer], [place] [address] Ronald Mills MD 240 [facility] [address] [place] [address] documented as of this encounter Visit Diagnoses Not on filedocumented in this encounter Additional Health Concerns Infection Onset Date Last Indicated Resolved Time COVID-19 03/05/2022 03/05/2022 03/15/2022 7:18 PM EDT documented as of this encounter Care Teams Pressure Tank Operator Relationship Specialty Start Date End Date Caitlyn Bowie MD 3400 [facility] 1 [place] [address] PCP - General Internal Medicine 05/06/21 Henry Kelly MD Pulmonary Department 175 [facility], [address] [place] [address] Physician Pulmonary Disease 09/06/17 06/22/20 documented as of this encounter
--- OUTSIDE RECORDS SUMMARY | 2025-03-17 13:49 | XMS_ITS | Encounter Summary ---
Author Organization [facility] and [facility] Address [address] [place] [address] Care Team Providers Care Authorization Rep Name Role Phone Caitlyn Bowie MD Primary Care Provider +1- [phone] Encounter Details Date Type Department Care Team (Late st Contact Info) Description 12/04/2014 Scanned Document [facility] Health Information Management [address] [place] [address] External, Provider Social History Tobacco Use Types [...] [facility] 240 [facility] Building [address] [place], [place] [id number] Ronald Mills MD 240 [facility] [address] [place] [address] documented as of this encounter Procedures Procedure Name Priority Date/Time Associated Diagnosis Comments LAB SCAN Routine 12/04/2014 documented in this encounter Results * Lab Scan (12/04/2014) Blood specimen (specimen) us Provider External LAB BLOOD ORDERABLES Final Res ult [facility] documented in this encounter Visit Diagnoses Not on filedocumented in this encounter Additional Health Concerns Infection Onset Date Last Indicated Resolved Time COVID-19 03/05/2022 03/05/2022 03/15/2022 7:18 PM EDT documented as of this encounter Care Teams Authorization Rep Relationship Specialty Start Date End Date Caitlyn Bowie MD 3400 [facility] 1 [place] [address] PCP - General Internal Medicine 05/06/21 Henry Kelly MD Pulmonary Department 175 [facility], [address] [place] [address] Physician Pulmonary Disease 09/06/17 06/22/20 documented as of this encounter
--- OUTSIDE RECORDS SUMMARY | 2025-03-17 13:49 | XMS_ITS | Encounter Summary ---
Author Organization [facility] and [facility] Address [address] [place] [address] Care Team Providers Care Chief Informatics Officer Name Role Phone Caitlyn Bowie MD Primary Care Provider +1- [phone] Encounter Details Date Type Department Care Team (Late st Contact Info) Description 04/28/2015 Scanned Document [facility] Health Information Management [address] [place] [address] External, Provider Social History Tobacco Use Types [...] [facility] [address] [facility] [address] [place], [place] [phone] Ronald Mills MD 240 [facility] [address] [place] [address] documented as of this encounter Procedures Procedure Name Priority Date/Time Associated Diagnosis Comments LAB SCAN Routine 04/28/2015 documented in this encounter Results * Lab Scan (04/28/2015) Blood specimen (specimen) us Provider External LAB BLOOD ORDERABLES Edited Re sult - Final [facility] documented in this encounter Visit Diagnoses Not on filedocumented in this encounter Additional Health Concerns Infection Onset Date Last Indicated Resolved Time COVID-19 03/05/2022 03/05/2022 03/15/2022 7:18 PM EDT documented as of this encounter Care Teams Chief Informatics Officer Relationship Specialty Start Date End Date Caitlyn Bowie MD 3400 [facility] 1 [place] [address] PCP - General Internal Medicine 05/06/21 Henry Kelly MD Pulmonary Department 175 [facility], [address] [place] [address] Physician Pulmonary Disease 09/06/17 06/22/20 documented as of this encounter
--- OUTSIDE RECORDS SUMMARY | 2025-03-17 13:49 | XMS_ITS | Encounter Summary ---
Author Organization [facility] Address [address] [place] [address] Care Team Providers Care Manager Economic Name Role Phone Caitlyn Bowie MD Primary Care Provider +1- [phone] Reason for Visit * Reason Onset Date Comments Medical Complaint 03/11/2025 Encounter Details Date Type Department Care Team ([facility] st Contact Info) Description 03/11/2025 Telephone [facility] Neurology Ophthalmology [address] [address] Yary Whitten DO [address] [place] [phone] Medical Complaint Social History Tobacco Use Types [...] Telephone Encounter - Mariana Vincent LPN - 03/13/2025 11:22 AM EDT Spoke with patient and informed of provider's response and recommendations. Patient stated that shedid not want to go to another ED in [facility] and will go to [facility] urgent care in [place]. * Telephone Encounter - Mariana Vincent LPN [...] filedocumented in this encounter Care Teams Manager Economic Relationship Specialty Start Date End Date Caitlyn Bowie MD [address] [place] [address] PCP - General Internal Medicine 03/20/23 documented as of this encounter
--- OUTSIDE RECORDS SUMMARY | 2025-03-17 13:49 | XMS_ITS | Encounter Summary ---
Author Organization [facility] and [facility] Address [address] [place] [address] Care Team Providers Care Street Commissioner Name Role Phone Caitlyn Bowie MD Primary Care Provider +1- [phone] Encounter Details Date Type Department Care Team (Late st Contact Info) Description 02/02/2018 Scanned Document [facility] Health Information Management [address] [place] [address] External, Provider Social History Tobacco Use Types [...] [facility] Building [address] [place], [place] [phone] Ronald Mills MD 240 [facility] A1 [place] [address] documented as of this encounter Visit Diagnoses Not on filedocumented in this encounter Additional Health Concerns Infection Onset Date Last Indicated Resolved Time COVID-19 03/05/2022 03/05/2022 03/15/2022 7:18 PM EDT documented as of this encounter Care Teams Street Commissioner Relationship Specialty Start Date End Date Caitlyn Bowie MD 3400 [facility] 1 [place] [address] PCP - General Internal Medicine 05/06/21 Henry Kelly MD Pulmonary Department 175 [facility], [address] [place] [address] Physician Pulmonary Disease 09/06/17 06/22/20 documented as of this encounter
--- OUTSIDE RECORDS SUMMARY | 2025-03-17 13:49 | XMS_ITS | Encounter Summary ---
Author Organization [facility] and [facility] Address [address] [place] [address] Care Team Providers Care Ship Runner Name Role Phone Caitlyn Bowie MD Primary Care Provider +1- [phone] Encounter Details Date Type Department Care Team (Late st Contact Info) Description 05/14/2015 Scanned Document [facility] Health Information Management [address] [place] [address] External, Provider Social History Tobacco Use Types [...] Affairs [facility] 240 [facility] Building [address] [place], [place] [phone] Ronald Mills MD 240 [facility] [address]1 [place] [address] documented as of this encounter Visit Diagnoses Not on filedocumented in this encounter Additional Health Concerns Infection Onset Date Last Indicated Resolved Time COVID-19 03/05/2022 03/05/2022 03/15/2022 7:18 PM EDT documented as of this encounter Care Teams Ship Runner Relationship Specialty Start Date End Date Caitlyn Bowie MD 3400 [facility] 1 [place] [address] PCP - General Internal Medicine 05/06/21 Henry Kelly MD Pulmonary Department 175 [facility], [address] [place] [address] Physician Pulmonary Disease 09/06/17 06/22/20 documented as of this encounter
--- OUTSIDE RECORDS SUMMARY | 2025-03-17 13:49 | XMS_ITS | Encounter Summary ---
Author Organization [facility] and [facility] Address [address] [place] [address] Care Team Providers Care Director Compensation Name Role Phone Caitlyn Bowie MD Primary Care Provider +1- [phone] Encounter Details Date Type Department Care Team (Late st Contact Info) Description 02/02/2018 Scanned Document [facility] Health Information Management [address] [place] [address] External, Provider Social History Tobacco Use Types [...] [facility] Building [address] [place], [place] [phone] Ronald Mills MD [address] [place] [address] [address] [place] [address] documented as of this [...] as of this encounter Care Teams Director Compensation Relationship Specialty Start Date End Date Caitlyn Bowie MD 3400 [facility] 1 [place] [address] PCP - General Internal Medicine 05/06/21 Henry Kelly MD Pulmonary Department 175 [facility], [address] [place] [address] Physician Pulmonary Disease 09/06/17 06/22/20 documented as of this encounter
--- OUTSIDE RECORDS SUMMARY | 2025-03-17 13:49 | XMS_ITS | Encounter Summary ---
Author Organization [facility] and [facility] Address [address] [place] [address] Care Team Providers Care Veneer Sorter Name Role Phone Caitlyn Bowie MD Primary Care Provider +1- [phone] Reason for Visit * Reason Comments Other Encounter Details Date Type Department Care Team (Late st Contact Info) Description 01/12/2021 Telephone [facility] [address] - [address] [id number] Ronald Mills MD [address] [place] [address] Other Social History Tobacco Use Types [...] AM EDT Lab orders were faxed to [facility] @ [phone]. Patient notified by phone. * Telephone Encounter - Kathleen Nasima - 01/12/2021 8:46 AM EDT Pt called looking to speak with Kirstin RE: lab orders sent to lab [facility] lab Looking to have labs sent there A.S.A.P at some point today She is scheduled with Dr. Mills on January 28 documented in this encounter Plan of Treatment Upcoming Encounters Date Type Department Care Team (Late st Contact Info) Description 04/25/2025 4:00 PM EDT Telemedicine [facility] 240 [facility] Building [address] [place], [place] [phone] Ronald Mills MD 240 [facility] [address] [place] [address] documented as of this encounter Visit Diagnoses Not on filedocumented in this encounter Additional Health Concerns Infection Onset Date Last Indicated Resolved Time COVID-19 03/05/2022 03/05/2022 03/15/2022 7:18 PM EDT Assessment Noted Time PHQ-9 Depression Total Score: 2 11/07/19 19 2:06 PM EDT documented as of this encounter Care Teams Veneer Sorter Relationship Specialty Start Date End Date Caitlyn Bowie MD [address] [address] PCP - General Internal Medicine 05/06/21 documented as of this encounter
--- OUTSIDE RECORDS SUMMARY | 2025-03-17 13:49 | XMS_ITS | Encounter Summary ---
Author Organization [facility] and [facility] Address [address] [place] [address] Care Team Providers Care Heel Splitter Name Role Phone Caitlyn Bowie MD Primary Care Provider +1- [phone] Encounter Details Date Type Department Care Team (Late st Contact Info) Description 01/26/2018 Scanned Document [facility] Health Information Management [address] [place] [address] External, Provider Social History Tobacco Use Types [...] Affairs [facility] 240 [facility] Building [address] [place] [address] Ronald Mills MD 240 [facility] [address] [place] [address] documented as of this encounter [...] as of this encounter Care Teams Heel Splitter Relationship Specialty Start Date End Date Caitlyn Bowie MD 3400 [facility] 1 [place] [address] PCP - General Internal Medicine 05/06/21 Henry Kelly MD Pulmonary Department 175 [facility], [address] [place] [address] Physician Pulmonary Disease 09/06/17 06/22/20 documented as of this encounter
--- OUTSIDE RECORDS SUMMARY | 2025-03-17 13:49 | XMS_ITS | Encounter Summary ---
Author Organization [facility] and [facility] Address [address] [place] [address] Care Team Providers Care Invertebrate Paleontologist Name Role Phone Caitlyn Bowie MD Primary Care Provider +1- [phone] Encounter Details Date Type Department Care Team (Late st Contact Info) Description 06/25/2015 Scanned Document [facility] Health Information Management [address] [place] [address] External, Provider Social History Tobacco Use Types [...] [facility] 240 [facility] Building [address] [place], [place] [phone] Ronald Mills MD 240 [facility] A1 [place] [address] documented as of this encounter Visit Diagnoses Not on filedocumented in this encounter Additional Health Concerns Infection Onset Date Last Indicated Resolved Time COVID-19 03/05/2022 03/05/2022 03/15/2022 7:18 PM EDT documented as of this encounter Care Teams Invertebrate Paleontologist Relationship Specialty Start Date End Date Caitlyn Bowie MD 3400 [facility] 1 [place] [address] PCP - General Internal Medicine 05/06/21 Henry Kelly MD Pulmonary Department 175 [facility], [address] [place] [address] Physician Pulmonary Disease 09/06/17 06/22/20 documented as of this encounter
--- OUTSIDE RECORDS SUMMARY | 2025-03-17 13:49 | XMS_ITS | Encounter Summary ---
Author Organization [facility] Address [address] [place] [address] Care Team Providers Care Ice Cream Truck Driver Name Role Phone Caitlyn Bowie MD Primary Care Provider +1- [phone] Encounter Details Date Type Department Care Team (Late st Contact Info) Description 02/01/2018 Scanned Document [facility] Health Information Management [address] [place] [address] External, Provider Social History Tobacco Use Types [...] [facility] [address] [facility] Building [address] [place], [place] [phone] Roanld Mills MD [address] [place] [address] [address] [place] [address] documented as of [...] of this encounter Care Teams Ice Cream Truck Driver Relationship Specialty Start Date End Date Caitlyn Bowie MD 3400 [facility] 1 [place] [address] PCP - General Internal Medicine 05/06/21 Henry Kelly MD Pulmonary Department 175 [facility], [address] [place] [address] Physician Pulmonary Disease 09/06/17 06/22/20 documented as of this encounter
--- OUTSIDE RECORDS SUMMARY | 2025-03-17 13:49 | XMS_ITS | Encounter Summary ---
Author Organization [facility] Address [address] [place] [address] Care Team Providers Care Order Control Clerk Blood Bank Name Role Phone Caitlyn Bowie MD Primary Care Provider +1- [phone] Encounter Details Date Type Department Care Team (Late st Contact Info) Description 11/09/2020 Scanned Document INTER[facility] DEFAULT [address] [place] [address] System, Provider Not In Social History Tobacco [...] [facility] 240 [facility] Building [address] [place] [address] Ronald Mills MD [address] [place] [address] [address] [place] [address] documented as of this encounter Visit Diagnoses Not on filedocumented in this encounter Additional Health Concerns Infection Onset Date Last Indicated Resolved Time COVID-19 03/05/2022 03/05/2022 03/15/2022 7:18 PM EDT Assessment Noted Time PHQ-9 Depression Total Score: 2 11/07/19 19 2:06 PM EDT documented as of this encounter Care Teams Order Control Clerk Blood Bank Relationship Specialty Start Date End Date Caitlyn Bowie MD [address] [address] PCP - General Internal Medicine 05/06/21 documented as of this encounter
--- OUTSIDE RECORDS SUMMARY | 2025-03-17 13:49 | XMS_ITS | Encounter Summary ---
Author Organization [facility] and [facility] Address [address] [place] [address] Care Team Providers Care Project Development Manager Name Role Phone Caitlyn Bowie MD Primary Care Provider +1- [phone] Encounter Details Date Type Department Care Team (Late Contact Info) Description 02/03/2021 Scanned Document [facility] Health Information Management [address] [place] [address] External, Provider Social History Tobacco Use Types [...] [facility] 240 [facility] Building [address] [place], [place] [phone] Ronald Mills MD [address] [place] [address] [address] [place] [address] documented as of this encounter [...] as of this encounter Care Teams Project Development Manager Relationship Specialty Start Date End Date Caitlyn Bowie MD [address] [address] PCP - General Internal Medicine 05/06/21 documented as of this encounter
--- OUTSIDE RECORDS SUMMARY | 2025-03-17 13:49 | XMS_ITS | Encounter Summary ---
Author Organization [facility] Address [address] [place] [address] Care Team Providers Care Canvas Baster Name Role Phone Caitlyn Bowie MD Primary Care Provider +1- [phone] Encounter Details Date Type Department Care Team (Late st Contact Info) Description 01/26/2018 Scanned Document [facility] Health Information Management [address] [place] [address] External, Provider Social History Tobacco Use Types [...] [facility] 240 [facility] Building [address] [place] [address] Ronald Mills MD [address] [place] [address] [address] [place] [address] documented as of this encounter [...] [facility] 1 [place] [address] PCP - General Internal Medicine 05/06/21 Henry Kelly MD Pulmonary Department [address] [place] [address], [address] [place] [address] Physician Pulmonary Disease 09/06/17 06/22/20 documented as of this encounter
--- OUTSIDE RECORDS SUMMARY | 2025-03-17 13:49 | XMS_ITS | Encounter Summary ---
Author Organization [facility] Address [address] [place] [address] Care Team Providers Care Aircraft Maintenance Director Name Role Phone Caitlyn Bowie MD Primary Care Provider +1- [phone] Encounter Details Date Type Department Care Team (Late st Contact Info) Description 05/01/2015 Scanned Document [facility] Health Information Management [address] [place] [address] External, Provider Social History Tobacco Use Types [...] at [facility] 240 [facility] Building [address] [place], [place] [phone] Ronald Mills MD 240 [facility] Max [address] [place] [address] documented as of this encounter [...] as of this encounter Care Teams Aircraft Maintenance Director Relationship Specialty Start Date End Date Caitlyn Bowie MD 3400 [facility] Max 1 [place] [address] PCP - General Internal Medicine 05/06/21 Henry Kelly MD Pulmonary Department 175 [facility], [address] [place] [address] Physician Pulmonary Disease 09/06/17 06/22/20 documented as of this encounter
--- OUTSIDE RECORDS SUMMARY | 2025-03-17 13:49 | XMS_ITS | Encounter Summary ---
Author Organization [facility] Address [address] [place] [address] Care Team Providers Care Content Producer Name Role Phone Caitlyn Bowie MD Primary Care Provider +1- [phone] Encounter Details Date Type Department Care Team (Late st Contact Info) Description 03/11/2015 Scanned Document [facility] Health Information Management [address] [place] [address] External, Provider Social History Tobacco Use Types [...] [facility] 240 [facility] Building [address] [place], [place] [phone] Ronald Mills MD 240 [facility] Max [address] [place] [address] documented as of this encounter Procedures Procedure Name Priority Date/Time Associated Diagnosis Comments LAB SCAN Routine 03/11/2015 documented in this encounter Results * Lab Scan (03/11/2015) Blood specimen (specimen) us Provider External LAB BLOOD ORDERABLES Edited Re sult - Final [facility] documented in this encounter Visit Diagnoses Not on filedocumented in this encounter Additional Health Concerns Infection Onset Date Last Indicated Resolved Time COVID-19 03/05/2022 03/05/2022 03/15/2022 7:18 PM EDT documented as of this encounter Care Teams Content Producer Relationship Specialty Start Date End Date Caitlyn Bowie MD 3400 [facility] 1 [place] [address] PCP - General Internal Medicine 05/06/21 Henry Kelly MD Pulmonary Department 175 [facility], [address] [place] [address] Physician Pulmonary Disease 09/06/17 06/22/20 documented as of this encounter
--- OUTSIDE RECORDS SUMMARY | 2025-03-17 13:49 | XMS_ITS | Encounter Summary ---
Author Organization [facility] and [facility] Address [address] [place] [address] Care Team Providers Care Art Gallery Director Name Role Phone Caitlyn Bowie MD Primary Care Provider +1- [phone] Encounter Details Date Type Department Care Team (Late st Contact Info) Description 01/28/2018 Scanned Document [facility] Health Information Management [address] [place] [address] External, Provider Social History Tobacco Use Types [...] [facility] 240 [facility] Building [address] [place], [place] [phone] Ronald Mills MD [address] [place] [address] [address] [place] [address] documented as of this encounter [...] as of this encounter Care Teams Art Gallery Director Relationship Specialty Start Date End Date Caitlyn Bowie MD [facility] 1 [place] [address] PCP - General Internal Medicine 05/06/21 Henry Kelly MD Pulmonary Department 175 [facility], [address] [place] [address] Physician Pulmonary Disease 09/06/17 06/22/20 documented as of this encounter
--- OUTSIDE RECORDS SUMMARY | 2025-03-17 13:49 | XMS_ITS | Encounter Summary ---
Author Organization [facility] and [facility] Address [address] [place] [address] Care Team Providers Care Bag Sealer Name Role Phone Caitlyn Bowie MD Primary Care Provider +1- [phone] Encounter Details Date Type Department Care Team (Late st Contact Info) Description 01/13/2021 Scanned Document Cancer Center at [address] [address] External, Provider Social History Tobacco Use Types [...] [facility] Building [address] [place], [place] [phone] Ronald Mills MD [address] [place] [address] [address] [place] [address] documented as of this encounter [...] End Date Caitlyn Bowie MD [address] [address] PCP - General Internal Medicine 05/06/21 documented as of this encounter
--- OUTSIDE RECORDS SUMMARY | 2025-03-17 13:49 | XMS_ITS | Encounter Summary ---
Author Organization [facility] and [facility] Address [address] [place] [address] Care Team Providers Care Brooch Maker Novelty Name Role Phone Caitlyn Bowie MD Primary Care Provider +1- [phone] Encounter Details Date Type Department Care Team (Late st Contact Info) Description 03/26/2015 Scanned Document Cardiovascular Medicine at [address] [place] [address] Norma Renee MD [address] [place] [phone] Social History Tobacco Use Types Packs/Day Years [...] PM EDT Telemedicine Cancer Center at [address] [place], [place] [phone] Ronald Mills MD [address] [place] [address] [address] [place] [address] documented as of this encounter Visit Diagnoses Not on filedocumented in this encounter Additional Health Concerns Infection Onset Date Last Indicated Resolved Time COVID-19 03/05/2022 03/05/2022 03/15/2022 7:18 PM EDT documented as of this encounter Care Teams Brooch Maker Novelty Relationship Specialty Start Date End Date Caitlyn Bowei MD 3400 [facility] 1 [place] [address] PCP - General Internal Medicine 05/06/21 Henry Kelly MD Pulmonary Department 175 [facility], [address] [place] [address] Physician Pulmonary Disease 09/06/17 06/22/20 documented as of this encounter
--- OUTSIDE RECORDS SUMMARY | 2025-03-17 13:49 | XMS_ITS | Encounter Summary ---
Author Organization [facility] Address [address] [place] [address] Care Team Providers Care Seal Delivery Vehicle Officer Name Role Phone Caitlyn Bowie MD Primary Care Provider +1- [phone] Encounter Details Date Type Department Care Team (Late st Contact Info) Description 03/14/2025 Scanned Document [facility] Neurology Ophthalmology [address] [place] [address] Shirley Chaidez PA-C [address] [address] Social History Tobacco Use Types Packs/Day Years [...] on filedocumented in this encounter Care Teams Seal Delivery Vehicle Officer Relationship Specialty Start Date End Date Caitlyn Bowie MD [address]20 [place] [address] PCP - General Internal Medicine 03/20/23 documented as of this encounter
--- OUTSIDE RECORDS SUMMARY | 2025-03-17 13:49 | XMS_ITS | Encounter Summary ---
Author Organization [facility] and [facility] Address [address] [place] [address] Care Team Providers Care Management Professional Name Role Phone Caitlyn Bowie MD Primary Care Provider +1- [phone] Encounter Details Date Type Department Care Team (Late st Contact Info) Description 01/27/2021 Scanned Document Cancer [facility] at [address] [address] External, Provider Social History Tobacco Use Types [...] Center at [facility] 240 [facility] Building [address] [place], [place] [address] Ronald Mills MD [address] [place] [address] [address] [place] [address] documented as of this encounter [...] End Date Caitlyn Bowie MD [address] [address] PCP - General Internal Medicine 05/06/21 documented as of this encounter
--- OUTSIDE RECORDS SUMMARY | 2025-03-17 13:49 | XMS_ITS | Encounter Summary ---
Author Organization [facility] and [facility] Address [address] [place] [address] Care Team Providers Care Interlocking Tower Operator Name Role Phone Caitlyn Bowie MD Primary Care Provider +1- [phone] Encounter Details Date Type Department Care Team (Late st Contact Info) Description 04/18/2018 Scanned Document [facility] Health Information Management [address] [place] [address] External, Provider Social History Tobacco Use Types [...] [facility] Building [address] [place], [place] [address] Ronald Mills MD [address] [place] [address] [address]1 [place] [address] documented as of this encounter [...] documented as of this encounter Care Teams Interlocking Tower Operator Relationship Specialty Start Date End Date Caitlyn Bowie MD 3400 [facility] 1 [place] [address] PCP - General Internal Medicine 05/06/21 Henry Kelly MD Pulmonary Department 175 [facility], [address] [place] [address] Physician Pulmonary Disease 09/06/17 06/22/20 documented as of this encounter
--- OUTSIDE RECORDS SUMMARY | 2025-03-17 13:49 | XMS_ITS | Encounter Summary ---
Author Organization [facility] Address [address] [place] [address] Care Team Providers Care Javascript Software Engineer Name Role Phone Caitlyn Bowie MD Primary Care Provider +1- [phone] Encounter Details Date Type Department Care Team (Late st Contact Info) Description 02/19/2015 Scanned Document [facility] Health Information Management [address] [place] [address] External, Provider Social History Tobacco Use Types [...] [facility] at [facility] 240 [facility] Building [address] [place], [place] [id number] Ronald Mills MD 240 [facility] Max [address] [place] [address] documented as of this encounter Procedures Procedure Name Priority Date/Time Associated Diagnosis Comments LAB SCAN Routine 02/19/2015 documented in this encounter Results * Lab Scan (02/19/2015) Blood specimen (specimen) us Provider External LAB BLOOD ORDERABLES Final Res ult [facility] documented in this encounter Visit Diagnoses Not on filedocumented in this encounter Additional Health Concerns Infection Onset Date Last Indicated Resolved Time COVID-19 03/05/2022 03/05/2022 03/15/2022 7:18 PM EDT documented as of this encounter Care Teams Javascript Software Engineer Relationship Specialty Start Date End Date Caitlyn Bowie MD 3400 [facility] 1 [place] [address] PCP - General Internal Medicine 05/06/21 Henry Kelly MD Pulmonary Department 175 [facility], [address] [place] [address] Physician Pulmonary Disease 09/06/17 06/22/20 documented as of this encounter
--- OUTSIDE RECORDS SUMMARY | 2025-03-17 13:49 | XMS_ITS | Encounter Summary ---
Author Organization [facility] Address [address] [place] [address] Care Team Providers Care Tobacco Stripping Machine Operator Name Role Phone Caitlyn Bowie MD Primary Care Provider +1- [phone] Encounter Details Date Type Department Care Team (Late st Contact Info) Description 01/30/2018 Scanned Document [facility] Health Information Management [address] [place] [address] External, Provider Social History Tobacco Use Types [...] Services – [facility] 240 [facility] Building [address] [place] [address] Ronald Mills MD [address] [place] [address] [address] [place] [address] documented as of this encounter [...] as of this encounter Care Teams Tobacco Stripping Machine Operator Relationship Specialty Start Date End Date Caitlyn Bowie MD [facility]0 [facility] 1 [place] [address] PCP - General Internal Medicine 05/06/21 Henry Kelly MD Pulmonary Department 175 [facility], [address] [place] [address] Physician Pulmonary Disease 09/06/17 06/22/20 documented as of this encounter
--- OUTSIDE RECORDS SUMMARY | 2025-03-17 13:49 | XMS_ITS | Encounter Summary ---
Author Organization [facility] and [facility] Address [address] [place] [address] Care Team Providers Care Toy Mechanic Name Role Phone Caitlyn Bowie MD Primary Care Provider +1- [phone] Encounter Details Date Type Department Care Team (Late st Contact Info) Description 01/27/2018 Scanned Document [facility] Health Information Management [address] [place] [address] External, Provider Social History Tobacco Use Types [...] [facility] 240 [facility] Building [address] [place] [address] Ronald Mills MD 240 [facility] A1 [place] [address] documented as of this encounter [...] as of this encounter Care Teams Toy Mechanic Relationship Specialty Start Date End Date Caitlyn Bowie MD 3400 [facility] 1 [place] [address] PCP - General Internal Medicine 05/06/21 Henry Kelly MD Pulmonary Department 175 [facility], [address] [place] [address] Physician Pulmonary Disease 09/06/17 06/22/20 documented as of this encounter
--- OUTSIDE RECORDS SUMMARY | 2025-03-17 13:49 | XMS_ITS | Encounter Summary ---
Author Organization [facility] and [facility] Address [address] [place] [address] Care Team Providers Care Business Practices Supervisor Name Role Phone Caitlyn Bowie MD Primary Care Provider +1- [phone] Encounter Details Date Type Department Care Team (Late st Contact Info) Description 03/13/2015 Scanned Document [facility] Health Information Management [address] [place] [address] External, Provider Social History Tobacco Use Types [...] [facility] at [facility] 240 [facility] Building [address] [place], [place] [address] Ronald Mills MD 240 [facility] Max [address] [place] [address] documented as of this encounter Procedures Procedure Name Priority Date/Time Associated Diagnosis Comments LAB SCAN Routine 02/16/2015 LAB SCAN Routine 02/16/2015 documented in this encounter Results * Lab Scan (02/16/2015) Blood specimen (specimen) us Provider External LAB BLOOD ORDERABLES Final Res ult Performing Organization Address [facility]/ZIP Co de Phone Number [facility] * Lab Scan (02/16/2015) Blood specimen (specimen) Provider External LAB BLOOD ORDERABLES Final Res ult Performing Organization Address [facility] Co de Phone Number [facility] documented in this encounter Visit Diagnoses Not on filedocumented in this encounter Additional Health Concerns Infection Onset Date Last Indicated Resolved Time COVID-19 03/05/2022 03/05/2022 03/15/2022 7:18 PM EDT documented as of this encounter Care Teams Business Practices Supervisor Relationship Specialty Start Date End Date Caitlyn Bowie MD 3400 [facility] 1 [place] [address] PCP - General Internal Medicine 05/06/21 Henry Kelly MD Pulmonary Department 175 [facility], [address] [place] [address] Physician Pulmonary Disease 09/06/17 06/22/20 documented as of this encounter
--- OUTSIDE RECORDS SUMMARY | 2025-03-17 13:49 | XMS_ITS | Encounter Summary ---
Author Organization [facility] and [facility] Address [address] [place] [address] Care Team Providers Care Automobile Repair Service Estimator Name Role Phone Caitlyn Bowie MD Primary Care Provider +1- [phone] Encounter Details Date Type Department Care Team (Late st Contact Info) Description 04/28/2015 Scanned Document [facility] Health Information Management [address] [place] [address] External, Provider Social History Tobacco Use Types [...] Center, [facility] Building [address] [place], [place] [address] Ronald Mills MD 240 [facility] A1 [place] [address] documented as of this encounter Visit Diagnoses Not on filedocumented in this encounter Additional Health Concerns Infection Onset Date Last Indicated Resolved Time COVID-19 03/05/2022 03/05/2022 03/15/2022 7:18 PM EDT documented as of this encounter Care Teams Automobile Repair Service Estimator Relationship Specialty Start Date End Date Caitlyn Bowie MD 3400 [facility] 1 [place] [address] PCP - General Internal Medicine 05/06/21 Henry Kelly MD Pulmonary Department 175 [facility], [address] [place] [address] Physician Pulmonary Disease 09/06/17 06/22/20 documented as of this encounter
--- OUTSIDE RECORDS SUMMARY | 2025-03-17 13:49 | XMS_ITS | Encounter Summary ---
Author Organization [facility] and [facility] Address [address] [place] [address] Care Team Providers Care Gas Mask Inspector Name Role Phone Caitlyn Boiwe MD Primary Care Provider +1- [phone] Encounter Details Date Type Department Care Team (Late st Contact Info) Description 02/02/2021 Scanned Document INTERFACE DEFAULT [address] [place] [address] System, Provider Not In Social History Tobacco [...] [facility] 240 [facility] Building [address] [place] [address] Ronald Mills MD [address] [place] [address] [address] [place] [address] documented as of this encounter [...] as of this encounter Care Teams Gas Mask Inspector Relationship Specialty Start Date End Date Caitlyn Bowie MD [facility] [address] [address] PCP - General Internal Medicine 05/06/21 documented as of this encounter
--- OUTSIDE RECORDS SUMMARY | 2025-03-17 13:49 | XMS_ITS | Encounter Summary ---
Author Organization [facility] Address [address] [place] [address] Care Team Providers Care Director Of Orthopedics Name Role Phone Caitlyn Bowie MD Primary Care Provider +1- [phone] Encounter Details Date Type Department Care Team ([facility] Contact Info) Description 08/26/2014 Documentation [facility] [address] [place] [address] Shilpi Ibarra [address] [place] [address] Social History Tobacco Use Types Packs/Day Years [...] Upcoming Encounters Date Type Department Care Team ([facility] Contact Info) Description 04/25/2025 4:00 PM EDT Telemedicine [facility] 240 [facility] Building [address] [place] [address] Ronald Mills MD 240 [facility] Max [address] [place] [address] documented as of this encounter Visit Diagnoses Not on filedocumented in this encounter Additional Health Concerns Infection Onset Date Last Indicated Resolved Time COVID-19 03/05/2022 03/05/2022 03/15/2022 7:18 PM EDT documented as of this encounter Care Teams Director Of Orthopedics Relationship Specialty Start Date End Date Caitlyn Bowie MD 3400 [facility] [facility] 1 [place] [address] PCP - General Internal Medicine 05/06/21 Henry Kelly MD Pulmonary Department 175 [facility], [address] [place] [address] Physician Pulmonary Disease 09/06/17 06/22/20 documented as of this encounter
--- OUTSIDE RECORDS SUMMARY | 2025-03-17 13:50 | XMS_ITS | Encounter Summary ---
Author Organization [facility] Address [address] [place] [address] Care Team Providers Care Vulnerability Assessment Analyst Name Role Phone Caitlyn Bowie MD Primary Care Provider +1- [phone] Encounter Details Date Type Department Care Team (Late st Contact Info) Description 04/29/2021 Scanned Document INTERFACE DEFAULT [address] [place] [address] System, Provider Not In Social History Tobacco [...] at [facility] 240 [facility] Building [address] [place] [address] Ronald Mills MD [address] [place] [address] [address] [place] [address] documented as of this encounter [...] documented as of this encounter Care Teams Vulnerability Assessment Analyst Relationship Specialty Start Date End Date Caitlyn Bowie MD [address] [address] PCP - General Internal Medicine 05/06/21 documented as of this encounter
--- OUTSIDE RECORDS SUMMARY | 2025-03-17 13:50 | XMS_ITS | Encounter Summary ---
Author Organization [facility] Address [address] [place] [address] Care Team Providers Care Boiler Installer Name Role Phone Caitlyn Bowie MD Primary Care Provider +1- [phone] Encounter Details Date Type Department Care Team (Late st Contact Info) Description 05/17/2021 Scanned Document Cancer Center at [address] [address] External, Provider Social History Tobacco Use Types [...] [facility] 240 [facility] Building [address] [place], [place] [address] Ronald Mills MD [address] [place] [address] A1 [place] [address] documented as of this encounter [...] as of this encounter Care Teams Boiler Installer Relationship Specialty Start Date End Date Caitlyn Bowie MD [address] [address] PCP - General Internal Medicine 05/06/21 documented as of this encounter
--- OUTSIDE RECORDS SUMMARY | 2025-03-17 13:50 | XMS_ITS | Encounter Summary ---
Author Organization [facility] and [facility] Address [address] [place] [address] Care Team Providers Care Civil Rights Attorney Name Role Phone Caitlyn Bowie MD Primary Care Provider +1- [phone] Encounter Details Date Type Department Care Team (Late st Contact Info) Description 12/28/2021 Scanned Document INTERFACE DEFAULT [address] [place] [address] System, Provider Not In Social History Tobacco [...] [facility] 240 [facility] Building [address] [place] [address] Ronald Mills MD [address] [place] [address] [address]1 [place] [address] documented as of this encounter Visit Diagnoses Not on filedocumented in this encounter Additional Health Concerns Infection Onset Date Last Indicated Resolved Time COVID-19 03/05/2022 03/05/2022 03/15/2022 7:18 PM EDT Assessment Noted Time PHQ-9 Depression Total Score: 2 11/07/19 19 2:06 PM EDT documented as of this encounter Care Teams Civil Rights Attorney Relationship Specialty Start Date End Date Caitlyn Bowie MD [address] [address] PCP - General Internal Medicine 05/06/21 documented as of this encounter
--- OUTSIDE RECORDS SUMMARY | 2025-03-17 13:50 | XMS_ITS | Encounter Summary ---
Author Organization [facility] Address [address] [place] [address] Care Team Providers Care Assistant Professor Of Geography Name Role Phone Caitlyn Bowie MD Primary Care Provider +1- [phone] Encounter Details Date Type Department Care Team (Late st Contact Info) Description 11/19/2021 Scanned Document Cardiovascular Medicine at [address]nd [place] [address] Norma Renee MD [address] [place] [address] Social History Tobacco Use Types Packs/Day [...] PM EDT Telemedicine Cancer Center at [address] [place] [address] Ronald Mills MD 240 [facility] A1 [place] [address] documented as of this encounter Visit Diagnoses Not on filedocumented in this encounter Additional Health Concerns Infection Onset Date Last Indicated Resolved Time COVID-19 03/05/2022 03/05/2022 03/15/2022 7:18 PM EDT Assessment Noted Time PHQ-9 Depression Total Score: 2 11/07/19 19 2:06 PM EDT documented as of this encounter Care Teams Assistant Professor Of Geography Relationship Specialty Start Date End Date Caitlyn Bowie MD [address] [address] PCP - General Internal Medicine 05/06/21 documented as of this encounter
--- OUTSIDE RECORDS SUMMARY | 2025-03-17 13:50 | XMS_ITS | Encounter Summary ---
Author Organization [facility] and [facility] Address [address] [place] [address] Care Team Providers Care Burn Nurse Name Role Phone Caitlyn Bowie MD Primary Care Provider +1- [phone] Encounter Details Date Type Department Care Team (Late st Contact Info) Description 06/08/2021 Scanned Document INTERFACE DEFAULT [address] [place] [address] System, Provider Not In Social History Tobacco [...] [facility] at [facility] 240 [facility] Building [address] [place], [place] [address] Ronald Mills MD [address] [place] [address] [address]1 [place] [address] documented as of this encounter [...] documented as of this encounter Care Teams Burn Nurse Relationship Specialty Start Date End Date Caitlyn Bowie MD [address] [place] [address] PCP - General Internal Medicine 05/06/21 documented as of this encounter
--- OUTSIDE RECORDS SUMMARY | 2025-03-17 13:50 | XMS_ITS | Encounter Summary ---
Author Organization [facility] and [facility] Address [address] [place] [address] Care Team Providers Care Oceanologist Name Role Phone Caitlyn Bowie MD Primary Care Provider +1- [phone] Encounter Details Date Type Department Care Team (Late st Contact Info) Description 05/05/2021 Scanned Document INTERFACE DEFAULT [address] [place] [address] System, Provider Not In Social History Tobacco [...] [facility] 240 [facility] Building [address] [place] [address] Ronald Mills MD [address] [place] [address] [address]1 [place] [address] documented as of this encounter Visit Diagnoses Not on filedocumented in this encounter Additional Health Concerns Infection Onset Date Last Indicated Resolved Time COVID-19 03/05/2022 03/05/2022 03/15/2022 7:18 PM EDT Assessment Noted Time PHQ-9 Depression Total Score: 2 11/07/19 19 2:06 PM EDT documented as of this encounter Care Teams Oceanologist Relationship Specialty Start Date End Date Caitlyn Bowie MD [address] [address] PCP - General Internal Medicine 05/06/21 documented as of this encounter
--- OUTSIDE RECORDS SUMMARY | 2025-03-17 13:50 | XMS_ITS | Encounter Summary ---
Author Organization [facility] and [facility] Address [address] [place] [address] Care Team Providers Care Business Performance Manager Name Role Phone Caitlyn Bowie MD Primary Care Provider +1- [phone] Encounter Details Date Type Department Care Team (Late st Contact Info) Description 04/27/2021 Scanned Document INTERFACE DEFAULT [address] [place] [address] System, Provider Not In Social History Tobacco [...] – [facility] 240 [facility] Building [address] [place] [address] Ronald Mills MD [address] [place] [address] [address] [place] [address] documented as of this encounter [...] as of this encounter Care Teams Business Performance Manager Relationship Specialty Start Date End Date Caitlyn Bowie MD [address] [address] PCP - General Internal Medicine 05/06/21 documented as of this encounter
--- OUTSIDE RECORDS SUMMARY | 2025-03-17 13:50 | XMS_ITS | Encounter Summary ---
Author Organization [facility] Address [address] [place] [address] Care Team Providers Care Commercial Reporter Name Role Phone Caitlyn Bowie MD Primary Care Provider +1- [phone] Encounter Details Date Type Department Care Team (Late Contact Info) Description 10/29/2021 Scanned Document [facility] Health Information Management [address] [place] [address] External, Provider Social History Tobacco Use Types [...] [facility] Building [address] [place], [place] [address] Ronald Mills MD [address] [place] [address] [address] [place] [address] documented as of this encounter [...] as of this encounter Care Teams Commercial Reporter Relationship Specialty Start Date End Date Caitlyn Bowie MD [address] [address] PCP - General Internal Medicine 05/06/21 documented as of this encounter
--- OUTSIDE RECORDS SUMMARY | 2025-03-17 13:50 | XMS_ITS | Encounter Summary ---
Author Organization [facility] and [facility] Address [address] [place] [address] Care Team Providers Care Rope Coiling Machine Operator Name Role Phone Caitlyn Bowie MD Primary Care Provider +1- [phone] Encounter Details Date Type Department Care Team (Late st Contact Info) Description 05/27/2021 Telephone [facility] at [address] [address] Ronald Mills MD [address] [place] [address] Social History Tobacco Use Types Packs/Day [...] [facility] 240 [place] [facility] [address] [place], [place] [address] Ronald Mills MD 240 [facility] Max [address] [place] [address] documented as of this encounter Visit Diagnoses Not on filedocumented in this encounter Additional Health Concerns Infection Onset Date Last Indicated Resolved Time COVID-19 03/05/2022 03/05/2022 03/15/2022 7:18 PM EDT Assessment Noted Time PHQ-9 Depression Total Score: 2 11/07/19 19 2:06 PM EDT documented as of this encounter Care Teams Rope Coiling Machine Operator Relationship Specialty Start Date End Date Caitlyn Bowie MD [address] [address] PCP - General Internal Medicine 05/06/21 documented as of this encounter
--- OUTSIDE RECORDS SUMMARY | 2025-03-17 13:50 | XMS_ITS | Encounter Summary ---
Author Organization [facility] and [facility] Address [address] [place] [address] Care Team Providers Care Scene Painter Name Role Phone Caitlyn Bowie MD Primary Care Provider +1- [phone] Encounter Details Date Type Department Care Team (Late st Contact Info) Description 10/15/2018 Scanned Document [facility] Health Information Management [address] [place] [address] External, Provider Social History Tobacco Use Types [...] [address] [facility] [address] [place], [place] [phone] Ronald Mills MD [address] [place] [address] [address]1 [place] [address] documented as of this encounter Visit Diagnoses Not on filedocumented in this encounter Additional Health Concerns Infection Onset Date Last Indicated Resolved Time COVID-19 03/05/2022 03/05/2022 03/15/2022 7:18 PM EDT documented as of this encounter Care Teams Scene Painter Relationship Specialty Start Date End Date Caitlyn Bowie MD [address] [facility] 1 [place] [address] PCP - General Internal Medicine 05/06/21 Henry Kelly MD Pulmonary Department 175 [facility], [address] [place] [address] Physician Pulmonary Disease 09/06/17 06/22/20 documented as of this encounter
--- OUTSIDE RECORDS SUMMARY | 2025-03-17 13:50 | XMS_ITS | Encounter Summary ---
Author Organization [facility] and [facility] Address [address] [place] [address] Care Team Providers Care Clothing Manager Name Role Phone Caitlyn Bowie MD Primary Care Provider +1- [phone] Encounter Details Date Type Department Care Team (Late st Contact Info) Description 08/07/2018 Scanned Document [facility] Health Information Management [address] [place] [address] External, Provider Social History Tobacco Use Types [...] [facility] 240 [facility] Building [address] [place], [place] [phone] Ronald Mills MD [address] [place] [address] [address]1 [place] [address] documented as of this encounter Visit Diagnoses Not on filedocumented in this encounter Additional Health Concerns Infection Onset Date Last Indicated Resolved Time COVID-19 03/05/2022 03/05/2022 03/15/2022 7:18 PM EDT documented as of this encounter Care Teams Clothing Manager Relationship Specialty Start Date End Date Caitlyn Bowie MD 3400 [facility] 1 [place] [address] PCP - General Internal Medicine 05/06/21 Henry Kelly MD Pulmonary Department 175 [facility], [address] [place] [address] Physician Pulmonary Disease 09/06/17 06/22/20 documented as of this encounter
--- OUTSIDE RECORDS SUMMARY | 2025-03-17 13:50 | XMS_ITS | Encounter Summary ---
Author Organization [facility] and [facility] Address [address] [place] [address] Care Team Providers Care Chief Medical Technologist Name Role Phone Caitlyn Bowie MD Primary Care Provider +1- [phone] Encounter Details Date Type Department Care Team (Late st Contact Info) Description 06/07/2021 Scanned Document [facility] Program at [address] [place] [address] Norma Renee MD [address] [place] [address] 2 [place] [address] Social History Tobacco Use Types [...] PM EDT Telemedicine Cancer Center at [address] [place], [place] [phone] Ronald Mills MD 240 [facility] A1 [place] [address] documented as of this encounter Visit Diagnoses Not on filedocumented in this encounter Additional Health Concerns Infection Onset Date Last Indicated Resolved Time COVID-19 03/05/2022 03/05/2022 03/15/2022 7:18 PM EDT Assessment Noted Time PHQ-9 Depression Total Score: 2 11/07/19 19 2:06 PM EDT documented as of this encounter Care Teams Chief Medical Technologist Relationship Specialty Start Date End Date Caitlyn Bowie MD [address] [address] PCP - General Internal Medicine 05/06/21 documented as of this encounter
--- OUTSIDE RECORDS SUMMARY | 2025-03-17 13:50 | XMS_ITS | Encounter Summary ---
Author Organization [facility] Address [address] [place] [address] Phone Care Team Providers Care Tobacco Prevention Health Educator Name Role Phone aCitlyn Bowie MD Primary Care Provider +1- [phone] Encounter Details Date Type Department Care Team (Late st Contact Info) Description 03/17/2025 Orders Only [facility] [address] [place] [place] [address] Marina Abdi [address] [place] [phone] Smells of urine (Primary Dx); Chronic kidney disease, stage 2 (mild); Other specified urinary incontinence Social History Tobacco Use Types Packs/Day Years [...] Visit [facility] [address] [place] [address] Rubén Ashraf MD [address] [place] [address] Scheduled Orders Name Type Priority Associated Diagnoses Orde r Schedule Urine culture Lab Routine Smells of urine Chronic kidney disease, stage 2 (mild) Other specified urinary incontinence Expected: 03/17/2025, Expires: 04/16/2026 Urinalysis with microscopic Lab Routine Smells of urine Chronic kidney disease, stage 2 (mild) Other specified urinary incontinence Expected: 03/17/2025, Expires: 04/16/2026 documented as of this encounter Visit Diagnoses Diagnosis Smells of urine- Primary Chronic kidney disease, stage 2 (mild) Other specified urinary incontinence documented in this encounter Care Teams Tobacco Prevention Health Educator Relationship Specialty Start Date End Date Caitlyn Bowie MD [address] [place], [place] PCP - General Internal Medicine 09/24/24 documented as of this encounter
--- OUTSIDE RECORDS SUMMARY | 2025-03-17 13:50 | XMS_ITS | Encounter Summary ---
Author Organization [facility] Address [address] [place] [address] Phone Care Team Providers Care Accounts Manager Name Role Phone Caitlyn Bowie MD Primary Care Provider +1- [phone] Encounter Details Date Type Department Care Team (Late Contact Info) Description 03/17/2025 Documentation Only [facility] [address] [place] [address] Marina Abdi [address] [place] [address] Social History Tobacco Use Types [...] Visit [facility] [address] [place] [address] Rubén Ashraf MD [address] [place] [address] [place] [address] documented as of this encounter Visit Diagnoses Not on filedocumented in this encounter Care Teams Accounts Manager Relationship Specialty Start Date End Date Caitlyn Bowie MD [address] [place], [place] PCP - General Internal Medicine 09/24/24 documented as of this encounter
--- OUTSIDE RECORDS SUMMARY | 2025-03-17 13:50 | XMS_ITS | Encounter Summary ---
Author Organization [facility] and [facility] Address [address] [place] [address] Care Team Providers Care Master Glazier Name Role Phone Caitlyn Bowie MD Primary Care Provider +1- [phone] Reason for Visit * Reason Comments FYI Encounter Details Date Type Department Care Team (Late st Contact Info) Description 05/24/2021 Telephone [facility] at [address] [place] [address] 2[address] [place], [place] [phone] Solo Henry MD [address] [place] [phone] FYI Social History Tobacco Use Types [...] [facility] [address] [facility] [address] [place] [address] Ronald Mills MD [address] [facility] [address] [place] [address] documented as of this encounter Visit Diagnoses Not on filedocumented in this encounter Additional Health Concerns Infection Onset Date Last Indicated Resolved Time COVID-19 03/05/2022 03/05/2022 03/15/2022 7:18 PM EDT Assessment Noted Time PHQ-9 Depression Total Score: 2 11/07/19 19 2:06 PM EDT documented as of this encounter Care Teams Master Glazier Relationship Specialty Start Date End Date Caitlyn Bowie MD 3400 [facility] 1 [place] [address] PCP - General Internal Medicine 05/06/21 documented as of this encounter
--- OUTSIDE RECORDS SUMMARY | 2025-03-17 13:50 | XMS_ITS | Encounter Summary ---
Author Organization [facility] Address [address] [place] [address] Care Team Providers Care Body Liner Name Role Phone Caitlyn Bowie MD Primary Care Provider +1- [phone] Encounter Details Date Type Department Care Team (Late st Contact Info) Description 06/26/2018 Scanned Document [facility] Health Information Management [address] [place] [address] External, Provider Social History Tobacco Use Types [...] [facility] 240 [facility] Building [address] [place], [place] [phone] Ronald Mills MD 240 [facility] A1 [place] [address] documented as of this encounter Visit Diagnoses Not on filedocumented in this encounter Additional Health Concerns Infection Onset Date Last Indicated Resolved Time COVID-19 03/05/2022 03/05/2022 03/15/2022 7:18 PM EDT documented as of this encounter Care Teams Body Liner Relationship Specialty Start Date End Date Caitlyn Bowie MD 3400 [facility] 1 [place] [address] PCP - General Internal Medicine 05/06/21 Henry Kelly MD Pulmonary Department 175 [facility], [address] [place] [address] Physician Pulmonary Disease 09/06/17 06/22/20 documented as of this encounter
--- OUTSIDE RECORDS SUMMARY | 2025-03-17 13:50 | XMS_ITS | Encounter Summary ---
Author Organization [facility] and [facility] Address [address] [place] [address] Care Team Providers Care Precast Concrete Products Installer Name Role Phone Caitlyn Bowie MD Primary Care Provider +1- [phone] Encounter Details Date Type Department Care Team (Late st Contact Info) Description 10/08/2021 Scanned Document INTERFACE DEFAULT [address] [place] [address] System, Provider Not In Social History Tobacco [...] at [facility] 240 [facility] Building [address] [place], [place] [phone] Ronald Mills MD [address] [place] [address] [address] [place] [address] documented as of this encounter [...] documented as of this encounter Care Teams Precast Concrete Products Installer Relationship Specialty Start Date End Date Caitlyn Bowie MD [address] [address] PCP - General Internal Medicine 05/06/21 documented as of this encounter
--- OUTSIDE RECORDS SUMMARY | 2025-03-17 13:50 | XMS_ITS | Encounter Summary ---
Author Organization [facility] Address [address] [place] [address] Care Team Providers Care Building Services Technician Name Role Phone Caitlyn Bowie MD Primary Care Provider +1- [phone] Encounter Details Date Type Department Care Team (Late st Contact Info) Description 04/26/2021 Scanned Document INTERFACE DEFAULT [address] [place] [address] System, Provider Not In Social History Tobacco [...] [facility] 240 [facility] Building [address] [place], [place] [phone] Ronald Mills MD [address] [place] [address] [address] [place] [address] documented as of this encounter [...] documented as of this encounter Care Teams Building Services Technician Relationship Specialty Start Date End Date Caitlyn Bowie MD [address] [address] PCP - General Internal Medicine 05/06/21 documented as of this encounter
--- OUTSIDE RECORDS SUMMARY | 2025-03-17 13:50 | XMS_ITS | Encounter Summary ---
Author Organization [facility] Address [address] [place] [address] Care Team Providers Care Electromechanical Equipment Tester Name Role Phone Caitlyn Bowie MD Primary Care Provider +1- [phone] Reason for Visit * Reason Comments Triage Encounter Details Date Type Department Care Team (Late st Contact Info) Description 10/18/2021 Telephone [facility] at [address] - [address] [phone] Ronald Mills MD [address] [place] [address] Triage Social History Tobacco Use Types [...] [facility] 240 [facility] Building [address] [place], [place] [address] Ronald Mills MD 240 [facility] Max [address] [place] [address] documented as of this encounter Visit Diagnoses Not on filedocumented in this encounter Additional Health Concerns Infection Onset Date Last Indicated Resolved Time COVID-19 03/05/2022 03/05/2022 03/15/2022 7:18 PM EDT Assessment Noted Time PHQ-9 Depression Total Score: 2 11/07/19 19 2:06 PM EDT documented as of this encounter Care Teams Electromechanical Equipment Tester Relationship Specialty Start Date End Date Caitlyn Bowie MD [address] [address] PCP - General Internal Medicine 05/06/21 documented as of this encounter
--- OUTSIDE RECORDS SUMMARY | 2025-03-17 13:50 | XMS_ITS | Encounter Summary ---
Author Organization [facility] Address [address] [place] [address] Care Team Providers Care Grades 1 Thru 5 Teacher Name Role Phone Caitlyn Bowie MD Primary Care Provider +1- [phone] Encounter Details Date Type Department Care Team (Late Contact Info) Description 11/18/2021 Scanned Document [facility] Health Information Management [address] [place] [address] External, Provider Social History Tobacco Use Types [...] [facility] at [facility] 240 [facility] Building [address] [place], [place] [phone] Ronald Mills MD [address] [place] [address] A1 [place] [address] documented as of this encounter Visit Diagnoses Not on filedocumented in this encounter Additional Health Concerns Infection Onset Date Last Indicated Resolved Time COVID-19 03/05/2022 03/05/2022 03/15/2022 7:18 PM EDT Assessment Noted Time PHQ-9 Depression Total Score: 2 11/07/19 19 2:06 PM EDT documented as of this encounter Care Teams Grades 1 Thru 5 Teacher Relationship Specialty Start Date End Date Caitlyn Bowie MD [address] [address] PCP - General Internal Medicine 05/06/21 documented as of this encounter
--- OUTSIDE RECORDS SUMMARY | 2025-03-17 13:50 | XMS_ITS | Encounter Summary ---
Author Organization [facility] Address [address] [place] [address] Care Team Providers Care House Wrecker Name Role Phone Caitlyn Bowie MD Primary Care Provider +1- [phone] Encounter Details Date Type Department Care Team (Late st Contact Info) Description 04/24/2021 Scanned Document INTERFACE DEFAULT [address] [place] [address] System, Provider Not In Social History Tobacco [...] [facility] [address] [facility] Building [address] [place], [place] [phone] Ronald Mills MD [address] [place] [address] [address] [place] [address] documented as of this encounter [...] as of this encounter Care Teams House Wrecker Relationship Specialty Start Date End Date Caitlyn Bowie MD [address] [address] PCP - General Internal Medicine 05/06/21 documented as of this encounter
--- OUTSIDE RECORDS SUMMARY | 2025-03-17 13:50 | XMS_ITS | Clinical Summary ---
Author Organization [facility] Address [address] [place] [address] Care Team Providers Care Cardiology Technician Name Role Phone Caitlyn Bowie MD Primary Care Provider +1- [phone] Allergies Active Allergy Reactions Criticality Noted Date [...] Breath High 05/09/2008 Bronchospasm or Wheezing Ipratropium Burr Unknown/Patient and Family Unable to Define Medium [...] 1 capsule by mouth daily. Active B Wwdvgvj-R-Fylsh Acid (STRESS 500 B-COMPLEX PO) Take 1 [...] Encounters Date Type Department Care Team Description 03/14/2025 Scanned Document [facility] [place] Neurology Ophthalmology [address] [address] Shirley Chaidez PA-C 03/11/2025 Telephone [facility] [place] Neurology Ophthalmology [address] [address] Yary Whitten DO Medical Complaint from Last [...] Additional history exists COVID-19 Vaccine ( season) 2025 09/03/2020, 08/06/2020 Hepatitis B Vaccines Aged Out No long er eligible based on patient's age to complete this topic Insurance MEDICARE PART A & B MEDICARE PART A & B [employer]UE [employer]IVE Care Teams Cardiology Technician Relationship Specialty Start Date End Date Caitlyn Bowie MD [address] [place] [address] PCP - General Internal Medicine 03/20/23
--- OUTSIDE RECORDS SUMMARY | 2025-03-17 13:50 | XMS_ITS | Encounter Summary ---
Author Organization [facility] Address [address] [place] [address] Phone Care Team Providers Care Engineering Patternmaker Name Role Phone Caitlyn Bowie MD Primary Care Provider +1- [phone] Encounter Details Date Type Department Care Team (Late Contact Info) Description 03/17/2025 Office Communication [facility] [address] [place] [address] Marina Abdi [address] [place] [phone] Social History Tobacco Use Types Packs/Day Years [...] Visit [facility] [address] [place] [address] Rubén Ashraf MD [address] [place] [address] [place] [address] documented as of this encounter Visit Diagnoses Not on filedocumented in this encounter Care Teams Engineering Patternmaker Relationship Specialty Start Date End Date Caitlyn Bowie MD [address] [place], [place] PCP - General Internal Medicine 09/24/24 documented as of this encounter
--- OUTSIDE RECORDS SUMMARY | 2025-03-17 13:50 | XMS_ITS | Encounter Summary ---
Author Organization [facility] Address [address] [place] [address] Care Team Providers Care Loom Winder Tender Name Role Phone Caitlyn Bowie MD Primary Care Provider +1- [phone] Reason for Visit * Reason Comments Advice Only Encounter Details Date Type Department Care Team ([facility] st Contact Info) Description 06/01/2021 Telephone [facility] at [address] [phone] Ronald Mills MD [address] [place] [address] Advice Only Social History Tobacco Use [...] added that she's called before and sent [employer] messages but hasn't received a reply,[phone]. documented in this encounter Plan of Treatment Upcoming Encounters Date Type Department Care Team (Late st Contact Info) Description 04/25/2025 4:00 PM EDT Telemedicine [facility] at [facility] 240 [facility] Building [address] [place], [place] [phone] Ronald Mills MD 240 [facility] Max [address]1 [place] [address] documented as of this encounter Visit Diagnoses Not on filedocumented in this encounter Additional Health Concerns Infection Onset Date Last Indicated Resolved Time COVID-19 03/05/2022 03/05/2022 03/15/2022 7:18 PM EDT Assessment Noted Time PHQ-9 Depression Total Score: 2 11/07/19 19 2:06 PM EDT documented as of this encounter Care Teams Loom Winder Tender Relationship Specialty Start Date End Date Caitlyn Bowie MD 3400 [facility] 1 [place] [address] PCP - General Internal Medicine 05/06/21 documented as of this encounter
--- OUTSIDE RECORDS SUMMARY | 2025-03-17 13:50 | XMS_ITS | Encounter Summary ---
Author Organization [facility] Address [address] [place] [address] Care Team Providers Care Machine I Cutter Name Role Phone Caitlyn Bowie MD Primary Care Provider +1- [phone] Encounter Details Date Type Department Care Team (Late st Contact Info) Description 06/07/2021 Scanned Document Cancer Center at [address] [address] External, Provider Social History Tobacco Use Types [...] [facility] 240 [facility] Building [address] [place], [place] [phone] Ronald Mills MD [address] [place] [address] [address]1 [place] [address] documented as of this encounter Visit Diagnoses Not on filedocumented in this encounter Additional Health Concerns Infection Onset Date Last Indicated Resolved Time COVID-19 03/05/2022 03/05/2022 03/15/2022 7:18 PM EDT Assessment Noted Time PHQ-9 Depression Total Score: 2 11/07/19 19 2:06 PM EDT documented as of this encounter Care Teams Machine I Cutter Relationship Specialty Start Date End Date Caitlyn Bowie MD [address] [address] PCP - General Internal Medicine 05/06/21 documented as of this encounter
--- OUTSIDE RECORDS SUMMARY | 2025-03-17 13:50 | XMS_ITS | Encounter Summary ---
Author Organization [facility] Address [address] [place] [phone] Care Team Providers Care Post Form Remover Name Role Phone Caitlyn Bowie MD Primary Care Provider +1- [phone] Encounter Details Date Type Department Care Team (Late st Contact Info) Description 11/18/2021 Scanned Document INTERFACE DEFAULT [address] [place] [address] System, Provider Not In Social History Tobacco [...] [facility] Building [address] [place] [address] Ronald Mills MD [address] [place] [address] [address] [place] [address] documented as of this encounter Visit Diagnoses Not on filedocumented in this encounter Additional Health Concerns Infection Onset Date Last Indicated Resolved Time COVID-19 03/05/2022 03/05/2022 03/15/2022 7:18 PM EDT Assessment Noted Time PHQ-9 Depression Total Score: 2 11/07/19 19 2:06 PM EDT documented as of this encounter Care Teams Post Form Remover Relationship Specialty Start Date End Date Caitlyn Bowie MD [address] [address] PCP - General Internal Medicine 05/06/21 documented as of this encounter
--- OUTSIDE RECORDS SUMMARY | 2025-03-17 13:50 | XMS_ITS | Encounter Summary ---
Author Organization [facility] and [facility] Address [address] [place] [address] Care Team Providers Care Licensed Prosthetist Name Role Phone Caitlyn Bowie MD Primary Care Provider +1- [phone] Encounter Details Date Type Department Care Team (Late st Contact Info) Description 03/14/2018 Scanned Document [facility] Health Information Management [address] [place] [address] External, Provider Social History Tobacco Use Types [...] [facility] 240 [facility] Building [address] [place], [place] [phone] Ronald Mills MD [address] [place] [address] [address] [place] [address] documented as of this encounter [...] as of this encounter Care Teams Licensed Prosthetist Relationship Specialty Start Date End Date Caitlyn Bowie MD 3400 [facility] 1 [place] [address] PCP - General Internal Medicine 05/06/21 Henry Kelly MD Pulmonary Department 175 [facility], [address] [place] [address] Physician Pulmonary Disease 09/06/17 06/22/20 documented as of this encounter
--- OUTSIDE RECORDS SUMMARY | 2025-03-17 13:50 | XMS_ITS | Encounter Summary ---
Author Organization [facility] and [facility] Address [address] [place] [address] Care Team Providers Care Caddy/Caddie Supervisor Name Role Phone Caitlyn Bowie MD Primary Care Provider +1- [phone] Encounter Details Date Type Department Care Team (Late st Contact Info) Description 04/28/2021 Scanned Document INTERFACE DEFAULT [address] [place] [phone] System, Provider Not In Social History Tobacco [...] [facility] 240 [facility] [address] [place], [place] [phone] Ronald Mills MD [address] [place] [address] [address] [place] [address] documented as of this encounter [...] documented as of this encounter Care Teams Caddy/Caddie Supervisor Relationship Specialty Start Date End Date Caitlyn Bowie MD [address] [address] PCP - General Internal Medicine 05/06/21 documented as of this encounter
--- OUTSIDE RECORDS SUMMARY | 2025-03-17 13:50 | XMS_ITS | Encounter Summary ---
Author Organization [facility] and [facility] Address [address] [place] [address] Care Team Providers Care Top Lift Cutter Name Role Phone Caitlyn Bowie MD Primary Care Provider +1- [phone] Encounter Details Date Type Department Care Team (Late st Contact Info) Description 04/25/2021 Scanned Document INTERFACE DEFAULT [address] [place] [address] System, Provider Not In Social History Tobacco [...] [facility] 240 [facility] Building [address] [place] [address] Ronald Mills MD [address] [place] [address] [address] [place] [address] documented as of this encounter [...] as of this encounter Care Teams Top Lift Cutter Relationship Specialty Start Date End Date Caitlyn Bowie MD [address] [address] PCP - General Internal Medicine 05/06/21 documented as of this encounter
--- OUTSIDE RECORDS SUMMARY | 2025-03-17 13:50 | XMS_ITS | Encounter Summary ---
Author Organization [facility] and [facility] Address [address] [place] [address] Care Team Providers Care Arm Maker Name Role Phone Caitlyn Bowie MD Primary Care Provider +1- [phone] Encounter Details Date Type Department Care Team (Late st Contact Info) Description 07/30/2018 Scanned Document [facility] Health Information Management [address] [place] [address] External, Provider Social History Tobacco Use Types [...] [facility] 240 [facility] Building [address] [place], [place] [address] Ronald Mills MD [address] [place] [address] [address]1 [place] [address] documented as of this encounter [...] documented as of this encounter Care Teams Arm Maker Relationship Specialty Start Date End Date Caitlyn Bowie MD [facility] 1 [place] [address] PCP - General Internal Medicine 05/06/21 Henry Kelly MD Pulmonary Department 175 [facility], [address] [place] [address] Physician Pulmonary Disease 09/06/17 06/22/20 documented as of this encounter
--- OUTSIDE RECORDS SUMMARY | 2025-03-17 13:50 | XMS_ITS | Encounter Summary ---
Author Organization [facility] and [facility] Address [address] [place] [address] Care Team Providers Care Nursing Home Admissions Director Name Role Phone Caitlyn Bowie MD Primary Care Provider +1- [phone] Encounter Details Date Type Department Care Team (Late st Contact Info) Description 07/28/2018 Scanned Document [facility] Health Information Management [address] [place] [address] External, Provider Social History Tobacco Use Types [...] [facility] 240 [facility] Building [address] [place], [place] [address] Ronald Mills MD 240 [facility] A1 [place] [address] documented as of this encounter [...] of this encounter Care Teams Nursing Home Admissions Director Relationship Specialty Start Date End Date Caitlyn Bowie MD [facility] 1 [place] [address] PCP - General Internal Medicine 05/06/21 Henry Kelly MD Pulmonary Department 175 [facility], [address] [place] [address] Physician Pulmonary Disease 09/06/17 06/22/20 documented as of this encounter
--- OUTSIDE RECORDS SUMMARY | 2025-03-17 13:50 | XMS_ITS | Encounter Summary ---
Author Organization [facility] and [facility] Address [address] [place] [address] Care Team Providers Care Hide Cooking Operator Name Role Phone Caitlyn Bowie MD Primary Care Provider +1- [phone] Encounter Details Date Type Department Care Team (Late st Contact Info) Description 06/07/2021 Scanned Document Onco-Oncology Program at [address] [place] [address] Norma Renee MD [address] [place] [address] 2 [place] [address] Social History Tobacco Use Types [...] PM EDT Telemedicine Cancer Center at [address] [place], [place] [address] Ronald Mills MD 240 [facility] A1 [place] [address] documented as of this encounter Visit Diagnoses Not on filedocumented in this encounter Additional Health Concerns Infection Onset Date Last Indicated Resolved Time COVID-19 03/05/2022 03/05/2022 03/15/2022 7:18 PM EDT Assessment Noted Time PHQ-9 Depression Total Score: 2 11/07/19 19 2:06 PM EDT documented as of this encounter Care Teams Hide Cooking Operator Relationship Specialty Start Date End Date Caitlyn Bowie MD [address] [address] PCP - General Internal Medicine 05/06/21 documented as of this encounter
--- OUTSIDE RECORDS SUMMARY | 2025-03-17 13:50 | XMS_ITS | Encounter Summary ---
Author Organization [facility] and [facility] Address [address] [place] [address] Care Team Providers Care Meat Inspector Name Role Phone Caitlyn Bowie MD Primary Care Provider +1- [phone] Encounter Details Date Type Department Care Team (Late st Contact Info) Description 07/26/2018 Scanned Document [facility] Health Information Management [address] [place] [address] External, Provider Social History Tobacco Use Types [...] [facility] at [facility] 240 [facility] Building [address] [place], [place] [address] Ronald Mills MD 240 [facility] A1 [place] [address] documented as of this [...] as of this encounter Care Teams Meat Inspector Relationship Specialty Start Date End Date Caitlyn Bowie MD 3400 [facility] 1 [place] [address] PCP - General Internal Medicine 05/06/21 Henry Kelly MD Pulmonary Department 175 [facility], [address] [place] [address] Physician Pulmonary Disease 09/06/17 06/22/20 documented as of this encounter
--- OUTSIDE RECORDS SUMMARY | 2025-03-17 13:51 | XMS_ITS | Encounter Summary ---
Author Organization [facility] Address [address] [place] [address] Care Team Providers Care Show Jumping Instructor Name Role Phone Caitlyn Bowie MD Primary Care Provider +1- [phone] Encounter Details Date Type Department Care Team (Late st Contact Info) Description 06/20/2022 Scanned Document INTERFACE DEFAULT [address] [place] [address] System, Provider Not In Social History Tobacco [...] [facility] Center at [facility] 240 [facility] Building [address] [place], [place] [address] Ronald Mills MD [address] [place] [address] [address] [place] [address] documented as of this encounter [...] as of this encounter Care Teams Show Jumping Instructor Relationship Specialty Start Date End Date Caitlyn Bowie MD [facility] [address] [address] PCP - General Internal Medicine 05/06/21 documented as of this encounter
--- OUTSIDE RECORDS SUMMARY | 2025-03-17 13:51 | XMS_ITS | Encounter Summary ---
Author Organization [facility] and [facility] Address 20 [place] [address] Care Team Providers Care Florist Designer Name Role Phone Caitlyn Bowie MD Primary Care Provider +1- [phone] Encounter Details Date Type Department Care Team (Late Contact Info) Description 01/31/2023 Abstract [facility] Mel[facility] 35 [facility] [place] [address] Shilpi Romero, RN Social History Tobacco Use [...] Cancer Center at [facility] 240 [facility] Building [address] [place], [place] [address] Ronald Mills MD 240 [facility] Max [address] [place] [address] documented as of this encounter Visit Diagnoses Not on filedocumented in this encounter Additional Health Concerns Assessment Noted Time PHQ-9 Depression Total Score: 2 11/07/19 19 2:06 PM EDT documented as of this encounter Care Teams Florist Designer Relationship Specialty Start Date End Date Caitlyn Bowie MD [address] [address] PCP - General Internal Medicine 05/06/21 documented as of this encounter
--- OUTSIDE RECORDS SUMMARY | 2025-03-17 13:51 | XMS_ITS | Encounter Summary ---
Author Organization [facility] and [facility] Address [address] [place] [address] Care Team Providers Care Employment Interviewer Name Role Phone Caitlyn Bowie MD Primary Care Provider +1- [phone] Encounter Details Date Type Department Care Team (Late st Contact Info) Description 01/02/2024 Scanned Document INTERFACE DEFAULT [address] [place] [address] System, Provider Not In Social History Tobacco [...] [facility] 240 [facility] Building [address] [place], [place] [address] Ronald Mills MD [address] [place] [address] [address] [place] [address] documented as of this encounter [...] as of this encounter Care Teams Employment Interviewer Relationship Specialty Start Date End Date Caitlyn Bowie MD [address] [address] PCP - General Internal Medicine 05/06/21 documented as of this encounter
--- OUTSIDE RECORDS SUMMARY | 2025-03-17 13:51 | XMS_ITS | Encounter Summary ---
Author Organization [facility] Address [address] [place] [address] Care Team Providers Care Shaft Sinker Name Role Phone Caitlyn Bowie MD Primary Care Provider +1- [phone] Encounter Details Date Type Department Care Team (Late st Contact Info) Description 04/13/2023 Scanned Document INTERFACE DEFAULT [address] [place] [address] System, Provider Not In Social History Tobacco [...] [facility] 240 [facility] Building [address] [place] [address] Ronald Mills MD [address] [place] [address] [address] [place] [address] documented as of this encounter [...] documented as of this encounter Care Teams Shaft Sinker Relationship Specialty Start Date End Date Caitlyn Bowie MD [address] [address] PCP - General Internal Medicine 05/06/21 documented as of this encounter
--- OUTSIDE RECORDS SUMMARY | 2025-03-17 13:51 | XMS_ITS | Encounter Summary ---
Author Organization [facility] and [facility] Address [address] [place] [address] Care Team Providers Care Radar Air Traffic Controller Name Role Phone Caitlyn Bowie MD Primary Care Provider +1- [phone] Encounter Details Date Type Department Care Team (Late st Contact Info) Description 08/28/2015 Scanned Document [facility] Health Information Management [address] [place] [address] External, Provider Social History Tobacco Use Types [...] [facility] 240 [facility] Building [address] [place], [place] [address] Ronald Mills MD 240 [facility] A1 [place] [address] documented as of this encounter Visit Diagnoses Not on filedocumented in this encounter Additional Health Concerns Infection Onset Date Last Indicated Resolved Time COVID-19 03/05/2022 03/05/2022 03/15/2022 7:18 PM EDT documented as of this encounter Care Teams Radar Air Traffic Controller Relationship Specialty Start Date End Date Caitlyn Bowie MD 3400 [facility] 1 [place] [address] PCP - General Internal Medicine 05/06/21 Henry Kelly MD Pulmonary Department 175 [facility], [address] [place] [address] Physician Pulmonary Disease 09/06/17 06/22/20 documented as of this encounter
--- OUTSIDE RECORDS SUMMARY | 2025-03-17 13:51 | XMS_ITS | Encounter Summary ---
Author Organization [facility] Address [address] [place] [address] Care Team Providers Care Boiler Fitter Name Role Phone Caitlyn Bowie MD Primary Care Provider +1- [phone] Encounter Details Date Type Department Care Team (Late st Contact Info) Description 06/24/2022 Scanned Document INTERFACE DEFAULT [address] [place] [address] System, Provider Not In Social History Tobacco [...] [facility] Building [address] [place], [place] [address] Ronald Mills MD [address] [place] [address] [address] [place] [address] documented as of this encounter [...] as of this encounter Care Teams Boiler Fitter Relationship Specialty Start Date End Date Caitlyn Bowie MD [address] [address] PCP - General Internal Medicine 05/06/21 documented as of this encounter
--- OUTSIDE RECORDS SUMMARY | 2025-03-17 13:51 | XMS_ITS | Encounter Summary ---
Author Organization [facility] and [facility] Address [address] [place] [address] Care Team Providers Care Computer Systems Software Architect Name Role Phone Caitlyn Bowie MD Primary Care Provider +1- [phone] Encounter Details Date Type Department Care Team (Late st Contact Info) Description 07/22/2021 Scanned Document INTERFACE DEFAULT [address] [place] [address] System, Provider Not In Social History Tobacco [...] [facility] 240 [facility] Building [address] [place], [place] [address] Ronald Mills MD [address] [place] [address] [address]1 [place] [address] documented as of this encounter [...] of this encounter Care Teams Computer Systems Software Architect Relationship Specialty Start Date End Date Caitlyn Bowie MD [address] [address] PCP - General Internal Medicine 05/06/21 documented as of this encounter
--- OUTSIDE RECORDS SUMMARY | 2025-03-17 13:51 | XMS_ITS | Encounter Summary ---
Author Organization [facility] and [facility] [place] Address [address] [place] [address] Care Team Providers Care Assistant Oceanographer Name Role Phone Caitlyn Bowie MD Primary Care Provider +1- [phone] Encounter Details Date Type Department Care Team (Late st Contact Info) Description 05/17/2023 Scanned Document INTERFACE DEFAULT [address] [place] [address] System, Provider Not In Social History Tobacco [...] [facility] Building [address] [place], [place] [address] Ronald Mills MD [address] [place] [address] A1 [place] [address] documented as of this encounter [...] as of this encounter Care Teams Assistant Oceanographer Relationship Specialty Start Date End Date Caitlyn Bowie MD [address] [address] PCP - General Internal Medicine 05/06/21 documented as of this encounter
--- OUTSIDE RECORDS SUMMARY | 2025-03-17 13:51 | XMS_ITS | Encounter Summary ---
Author Organization [facility] Address [address] [place] [address] Care Team Providers Care Leaded Glass Installer Name Role Phone Caitlyn Bowie MD Primary Care Provider +1- [phone] Encounter Details Date Type Department Care Team (Late st Contact Info) Description 09/07/2021 Scanned Document INTERFACE DEFAULT [address] [place] [address] System, Provider Not In Social History Tobacco [...] [facility] Building [address] [place], [place] [address] Ronald Mills MD [address] [place] [address] [address]1 [place] [address] documented as of this encounter [...] documented as of this encounter Care Teams Leaded Glass Installer Relationship Specialty Start Date End Date Caitlyn Bowie MD [address] [address] PCP - General Internal Medicine 05/06/21 documented as of this encounter
--- OUTSIDE RECORDS SUMMARY | 2025-03-17 13:51 | XMS_ITS | Encounter Summary ---
Author Organization [facility] and [facility] Address [address] [place] [address] Care Team Providers Care Activity Therapy Teacher Name Role Phone Caitlyn Bowie MD Primary Care Provider +1- [phone] Encounter Details Date Type Department Care Team (Late st Contact Info) Description 07/28/2022 Scanned Document Onco-Oncology Program at [address] [place] [address] Norma Renee MD [address] [place] [address] 2 [place] [address] Social History Tobacco Use Types [...] PM EDT Telemedicine Cancer Center at [address] [place], [place] [address] Ronald Mills MD 240 [facility] A1 [place] [address] documented as of this encounter Visit Diagnoses Not on filedocumented in this encounter Additional Health Concerns Assessment Noted Time PHQ-9 Depression Total Score: 2 11/07/19 19 2:06 PM EDT documented as of this encounter Care Teams Activity Therapy Teacher Relationship Specialty Start Date End Date Caitlyn Bowie MD [address] [address] PCP - General Internal Medicine 05/06/21 documented as of this encounter
--- OUTSIDE RECORDS SUMMARY | 2025-03-17 13:51 | XMS_ITS | Encounter Summary ---
Author Organization [facility] and [facility] Address [address] [place] [address] Care Team Providers Care Manager Sound Name Role Phone Caitlyn Bowie MD Primary Care Provider +1- [phone] Encounter Details Date Type Department Care Team (Late st Contact Info) Description 05/16/2023 Scanned Document INTERFACE DEFAULT [address] [place] [address] System, Provider Not In Social History Tobacco [...] Cancer Center at [facility] 240 [facility] Building [address] [place], [place] [address] Ronald Mills MD [address] [place] [address] [address]1 [place] [address] documented as of this encounter [...] as of this encounter Care Teams Manager Sound Relationship Specialty Start Date End Date Caitlyn Bowie MD [address] [address] PCP - General Internal Medicine 05/06/21 documented as of this encounter
--- OUTSIDE RECORDS SUMMARY | 2025-03-17 13:51 | XMS_ITS | Encounter Summary ---
Author Organization [facility] and [facility] Address [address] [place] [address] Care Team Providers Care Assistant Womens Volleyball Coach Name Role Phone Caitlyn Bowie MD Primary Care Provider +1- [phone] Encounter Details Date Type Department Care Team (Late st Contact Info) Description 06/08/2022 Scanned Document INTERFACE DEFAULT [address] [place] [address] System, Provider Not In Social History Tobacco [...] at [facility] 240 [facility] Building [address] [place], [place] [address] Ronald Mills MD [address] [place] [address] A1 [place] [address] documented as of this encounter [...] as of this encounter Care Teams Assistant Womens Volleyball Coach Relationship Specialty Start Date End Date Caitlyn Bowie MD [address] [address] PCP - General Internal Medicine 05/06/21 documented as of this encounter
--- OUTSIDE RECORDS SUMMARY | 2025-03-17 13:51 | XMS_ITS | Encounter Summary ---
Author Organization [facility] and [facility] Address [address] [place] [address] Care Team Providers Care Kennel Helper Name Role Phone Caitlyn Bowie MD Primary Care Provider +1- [phone] Encounter Details Date Type Department Care Team (Late st Contact Info) Description 06/27/2022 Scanned Document INTERFACE DEFAULT [address] [place] [address] System, Provider Not In Social History Tobacco [...] Center at [facility] 240 [facility] Building [address] [place], [place] [address] Ronald Mills MD [address] [place] [address] [address]1 [place] [address] documented as of this encounter [...] as of this encounter Care Teams Kennel Helper Relationship Specialty Start Date End Date Caitlyn Bowie MD [facility] [address] [address] PCP - General Internal Medicine 05/06/21 documented as of this encounter
--- OUTSIDE RECORDS SUMMARY | 2025-03-17 13:51 | XMS_ITS | Encounter Summary ---
Author Organization [facility] and [facility] Address [address] [place] [address] Care Team Providers Care Director Sports Name Role Phone Caitlyn Bowie MD Primary Care Provider +1- [phone] Encounter Details Date Type Department Care Team (Late st Contact Info) Description 09/28/2015 Scanned Document [facility] Health Information Management [address] [place] [address] External, Provider Social History Tobacco Use Types [...] at [facility] 240 [facility] Building [address] [place], [place] [address] Ronald Mills MD 240 [facility] Max [address] [place] [address] documented as of this encounter Procedures Procedure Name Priority Date/Time Associated Diagnosis Comments LAB SCAN Routine 09/09/2015 documented in this encounter Results * Lab Scan (09/09/2015) Blood specimen (specimen) us Provider External LAB BLOOD ORDERABLES Final Res ult [facility] documented in this encounter Visit Diagnoses Not on filedocumented in this encounter Additional Health Concerns Infection Onset Date Last Indicated Resolved Time COVID-19 03/05/2022 03/05/2022 03/15/2022 7:18 PM EDT documented as of this encounter Care Teams Director Sports Relationship Specialty Start Date End Date Caitlyn Bowie MD 3400 [facility] 1 [place] [address] PCP - General Internal Medicine 05/06/21 Henry Kelly MD Pulmonary Department 175 [facility], [address] [place] [address] Physician Pulmonary Disease 09/06/17 06/22/20 documented as of this encounter
--- OUTSIDE RECORDS SUMMARY | 2025-03-17 13:51 | XMS_ITS | Encounter Summary ---
Author Organization [facility] and [facility] Address 20 [place] [address] Care Team Providers Care Founding Partner Name Role Phone Caitlyn Bowie MD Primary Care Provider +1- [phone] Encounter Details Date Type Department Care Team (Late st Contact Info) Description 08/23/2022 Abstract Cardiovascular Medicine at [address] [place] [address] Norma Renee MD [address] [place] [phone] Social History Tobacco Use Types Packs/Day Years [...] PM EDT Telemedicine Cancer Center at [address] [place] [address] Ronald Mills MD [address] [place] [address] [address]1 [place] [address] documented as of this encounter Visit Diagnoses Not on filedocumented in this encounter Additional Health Concerns Assessment Noted Time PHQ-9 Depression Total Score: 2 11/07/19 19 2:06 PM EDT documented as of this encounter Care Teams Founding Partner Relationship Specialty Start Date End Date Caitlyn Bowie MD [address] [address] PCP - General Internal Medicine 05/06/21 documented as of this encounter
--- OUTSIDE RECORDS SUMMARY | 2025-03-17 13:51 | XMS_ITS | Encounter Summary ---
Author Organization [facility] and [facility] Address [address] [place] [address] Care Team Providers Care Boiler House Supervisor Name Role Phone Caitlyn Bowie MD Primary Care Provider +1- [phone] Encounter Details Date Type Department Care Team (Late st Contact Info) Description 09/24/2021 Scanned Document INTERFACE DEFAULT [address] [place] [address] System, Provider Not In Social History Tobacco [...] [facility] [address] [place] [address] Ronald Mills MD [address] [place] [address] [address] [place] [address] documented as of this encounter [...] of this encounter Care Teams Boiler House Supervisor Relationship Specialty Start Date End Date Caitlyn Bowie MD [facility] [address] [address] PCP - General Internal Medicine 05/06/21 documented as of this encounter
--- OUTSIDE RECORDS SUMMARY | 2025-03-17 13:51 | XMS_ITS | Encounter Summary ---
Author Organization [facility] Address [address] [place] [address] [address] [place] [address] Phone Care Team Providers Care Epic Specialist Name Role Phone Caitlyn Bowie MD Primary Care Provider +1- [phone] Encounter Details Date Type Department Care Team (Late st Contact Info) Description 08/30/2024 Abstract [facility] 2447 [facility] 202 [place] [address] Adalgisa Whitney MD [address] [place] [address] 202 [place] [address] Social History Tobacco Use Types [...] 4:00 PM EDT Tele[facility]icine [facility] at [address] [place] [address] Ronald Mills MD [address] [place] [phone] documented as of this encounter Visit Diagnoses Not on filedocumented in this encounter Additional Health Concerns Assessment Noted Time PHQ-9 Depression Total Score: 2 11/07/19 19 2:06 PM EDT documented as of this encounter Care Teams Epic Specialist Relationship Specialty Start Date End Date Caitlyn Bowie MD [address] [address] PCP - General Internal Medicine 05/06/21 documented as of this encounter
--- OUTSIDE RECORDS SUMMARY | 2025-03-17 13:51 | XMS_ITS | Encounter Summary ---
Author Organization [facility] and [facility] Address [address] [place] [address] Care Team Providers Care Powertrain Design Engineer Name Role Phone Caitlyn Bowie MD Primary Care Provider +1- [phone] Encounter Details Date Type Department Care Team (Late st Contact Info) Description 07/07/2021 Scanned Document INTERFACE DEFAULT [address] [place] [address] System, Provider Not In Social History Tobacco [...] Center at [facility] 240 [facility] Building [address] [place] [address] Ronald Mills MD [address] [place] [address] [address] [place] [address] documented as of this encounter Visit Diagnoses Not on filedocumented in this encounter Additional Health Concerns Infection Onset Date Last Indicated Resolved Time COVID-19 03/05/2022 03/05/2022 03/15/2022 7:18 PM EDT Assessment Noted Time PHQ-9 Depression Total Score: 2 11/07/19 19 2:06 PM EDT documented as of this encounter Care Teams Powertrain Design Engineer Relationship Specialty Start Date End Date Caitlyn Bowie MD [address] [address] PCP - General Internal Medicine 05/06/21 documented as of this encounter
--- OUTSIDE RECORDS SUMMARY | 2025-03-17 13:51 | XMS_ITS | Encounter Summary ---
Author Organization [facility] and [facility] Address [address] [place] [address] Care Team Providers Care Drop Hammer Pile Driver Operator Name Role Phone Caitlyn Bowie MD Primary Care Provider +1- [phone] Encounter Details Date Type Department Care Team (Late st Contact Info) Description 07/06/2021 Scanned Document INTERFACE DEFAULT [address] [place] [address] System, Provider Not In Social History Tobacco [...] at [facility] 240 [facility] Building [address] [place] [address] Ronald Mills MD [address] [place] [address] [address] [place] [address] documented as of this encounter Visit Diagnoses Not on filedocumented in this encounter Additional Health Concerns Infection Onset Date Last Indicated Resolved Time COVID-19 03/05/2022 03/05/2022 03/15/2022 7:18 PM EDT Assessment Noted Time PHQ-9 Depression Total Score: 2 11/07/19 19 2:06 PM EDT documented as of this encounter Care Teams Drop Hammer Pile Driver Operator Relationship Specialty Start Date End Date Caitlyn Bowie MD [address] [address] PCP - General Internal Medicine 05/06/21 documented as of this encounter
--- OUTSIDE RECORDS SUMMARY | 2025-03-17 13:51 | XMS_ITS | Encounter Summary ---
Author Organization [facility] Address 20 [place] [address] Care Team Providers Care Agronomist Name Role Phone Caitlyn Bowie MD Primary Care Provider +1- [phone] Encounter Details Date Type Department Care Team (Late st Contact Info) Description 09/10/2021 Scanned Document Cardiovascular Medicine at [address] [place] [address] [phone] Norma Renee MD [address] [place] [phone] Social History Tobacco Use Types Packs/Day Years [...] PM EDT Telemedicine Cancer Center at [address] [place] [address] Ronald Mills MD [address] [place] [address] [address] [place] [address] documented as of this encounter Visit Diagnoses Not on filedocumented in this encounter Additional Health Concerns Infection Onset Date Last Indicated Resolved Time COVID-19 03/05/2022 03/05/2022 03/15/2022 7:18 PM EDT Assessment Noted Time PHQ-9 Depression Total Score: 2 11/07/19 19 2:06 PM EDT documented as of this encounter Care Teams Agronomist Relationship Specialty Start Date End Date Caitlyn Bowie MD [address] [address] PCP - General Internal Medicine 05/06/21 documented as of this encounter
--- OUTSIDE RECORDS SUMMARY | 2025-03-17 13:51 | XMS_ITS | Encounter Summary ---
Author Organization [facility] and [facility] Address [address] [place] [address] Care Team Providers Care Water Maintenance Supervisor Name Role Phone Caitlyn Bowie MD Primary Care Provider +1- [phone] Encounter Details Date Type Department Care Team (Late st Contact Info) Description 06/28/2022 Scanned Document INTERFACE DEFAULT [address] [place] [address] System, Provider Not In Social History Tobacco [...] Center at [facility] 240 [facility] Building [address] [place], [place] [phone] Ronald Mills MD [address] [place] [address] [address] [place] [address] documented as of this encounter [...] as of this encounter Care Teams Water Maintenance Supervisor Relationship Specialty Start Date End Date Caitlyn Bowie MD [address] [address] PCP - General Internal Medicine 05/06/21 documented as of this encounter
--- OUTSIDE RECORDS SUMMARY | 2025-03-17 13:51 | XMS_ITS | Encounter Summary ---
Author Organization [facility] and [facility] Address [address] [place] [address] Care Team Providers Care Water Technician Name Role Phone Caitlyn Bowie MD Primary Care Provider +1- [phone] Encounter Details Date Type Department Care Team (Late st Contact Info) Description 12/04/2018 Scanned Document [facility] Health Information Management [address] [place] [address] External, Provider Social History Tobacco Use Types [...] Cancer Center at [facility] 240 [facility] Building [address] [place], [place] [phone] Ronald Mills MD 240 [facility] A1 [place] [address] documented as of this encounter Visit Diagnoses Not on filedocumented in this encounter Additional Health Concerns Infection Onset Date Last Indicated Resolved Time COVID-19 03/05/2022 03/05/2022 03/15/2022 7:18 PM EDT Assessment Noted Time PHQ-9 Depression Total Score: 2 11/07/19 19 2:06 PM EDT documented as of this encounter Care Teams Water Technician Relationship Specialty Start Date End Date Caitlyn Bowie MD 3400 [facility] Max 1 [place] [address] PCP - General Internal Medicine 05/06/21 Henry Kelly MD Pulmonary Department 175 [facility] [address] [place] [address] Physician Pulmonary Disease 09/06/17 06/22/20 documented as of this encounter
--- OUTSIDE RECORDS SUMMARY | 2025-03-17 13:51 | XMS_ITS | Encounter Summary ---
Author Organization [facility] and [facility] Address [address] [place] [address] Care Team Providers Care Remnants Cutter Name Role Phone Caitlyn Bowie MD Primary Care Provider +1- [phone] Encounter Details Date Type Department Care Team (Late st Contact Info) Description 09/01/2023 Scanned Document INTERFACE DEFAULT [address] [place] [address] System, Provider Not In Social History Tobacco [...] Cancer Center at [facility] 240 [facility] Building [address] [place] [address] Ronald Mills MD [address] [place] [address] [address] [place] [address] documented as of this encounter Visit Diagnoses Not on filedocumented in this encounter Additional Health Concerns Assessment Noted Time PHQ-9 Depression Total Score: 2 11/07/19 19 2:06 PM EDT documented as of this encounter Care Teams Remnants Cutter Relationship Specialty Start Date End Date Caitlyn Bowie MD [address] [address] PCP - General Internal Medicine 05/06/21 documented as of this encounter
--- OUTSIDE RECORDS SUMMARY | 2025-03-17 13:51 | XMS_ITS | Encounter Summary ---
Author Organization [facility] and [facility] Address [address] [place] [address] Care Team Providers Care Reflesher Name Role Phone Caitlyn Bowie MD Primary Care Provider +1- [phone] Encounter Details Date Type Department Care Team (Late st Contact Info) Description 12/23/2022 Scanned Document INTERFACE DEFAULT [address] [place] [address] System, Provider Not In Social History Tobacco [...] – [facility] 240 [facility] Building [address] [place] [address] Ronald Mills MD [address] [place] [address] [address]1 [place] [address] documented as of this encounter Visit Diagnoses Not on filedocumented in this encounter Additional Health Concerns Assessment Noted Time PHQ-9 Depression Total Score: 2 11/07/19 19 2:06 PM EDT documented as of this encounter Care Teams Reflesher Relationship Specialty Start Date End Date Caitlyn Bowie MD [address] [address] PCP - General Internal Medicine 05/06/21 documented as of this encounter
--- OUTSIDE RECORDS SUMMARY | 2025-03-17 13:51 | XMS_ITS | Encounter Summary ---
Author Organization [facility] and [facility] Address [address] [place] [address] Care Team Providers Care Food Service Helper Name Role Phone Caitlyn Bowie MD Primary Care Provider +1- [phone] Encounter Details Date Type Department Care Team (Late st Contact Info) Description 09/23/2021 Scanned Document INTERFACE DEFAULT [address] [place] [address] System, Provider Not In Social History Tobacco [...] [facility] Building [address] [place], [place] [address] Ronald Mills MD [address] [place] [address] [address] [place] [address] documented as [...] of this encounter Care Teams Food Service Helper Relationship Specialty Start Date End Date Caitlyn Bowie MD [address] [address] PCP - General Internal Medicine 05/06/21 documented as of this encounter
--- OUTSIDE RECORDS SUMMARY | 2025-03-17 13:51 | XMS_ITS | Encounter Summary ---
Author Organization [facility] and [facility] Address [address] [place] [address] Care Team Providers Care Floor Worker Well Service Name Role Phone Caitlyn Bowie MD Primary Care Provider +1- [phone] Encounter Details Date Type Department Care Team (Late st Contact Info) Description 04/19/2023 Scanned Document INTERFACE DEFAULT [address] [place] [address] System, Provider Not In Social History Tobacco [...] at [facility] 240 [facility] Building [address] [place], [place] [phone] Ronald Mills MD [address] [place] [address] [address] [place] [address] documented as of this encounter [...] as of this encounter Care Teams Floor Worker Well Service Relationship Specialty Start Date End Date Caitlyn Bowie MD [address] [address] PCP - General Internal Medicine 05/06/21 documented as of this encounter
--- OUTSIDE RECORDS SUMMARY | 2025-03-17 13:51 | XMS_ITS | Encounter Summary ---
Author Organization [facility] and [facility] Address [address] [place] [address] Care Team Providers Care Heel Stainer Name Role Phone Caitlyn Bowie MD Primary Care Provider +1- [phone] Encounter Details Date Type Department Care Team (Late st Contact Info) Description 09/09/2021 Scanned Document INTERFACE DEFAULT [address] [place] [address] System, Provider Not In Social History Tobacco [...] [facility] 240 [facility] Building [address] [place] [address] Ronald Mills MD [address] [place] [address] [address] [place] [address] documented as of this encounter Visit Diagnoses Not on filedocumented in this encounter Additional Health Concerns Infection Onset Date Last Indicated Resolved Time COVID-19 03/05/2022 03/05/2022 03/15/2022 7:18 PM EDT Assessment Noted Time PHQ-9 Depression Total Score: 2 11/07/19 19 2:06 PM EDT documented as of this encounter Care Teams Heel Stainer Relationship Specialty Start Date End Date Caitlyn Bowie MD [address] [address] PCP - General Internal Medicine 05/06/21 documented as of this encounter
--- OUTSIDE RECORDS SUMMARY | 2025-03-17 13:51 | XMS_ITS | Encounter Summary ---
Author Organization [facility] and [facility] Address [address] [place] [address] Care Team Providers Care Product Development Manager Name Role Phone Caitlyn Bowie MD Primary Care Provider +1- [phone] Encounter Details Date Type Department Care Team (Late st Contact Info) Description 04/20/2023 Scanned Document INTERFACE DEFAULT [address] [place] [address] System, Provider Not In Social History Tobacco [...] Cancer Center at [facility] 240 [facility] Building [address] [place], [place] [phone] Ronald Mills MD [address] [place] [address] [address] [place] [address] documented as of this encounter [...] as of this encounter Care Teams Product Development Manager Relationship Specialty Start Date End Date Caitlyn Bowie MD [address] [address] PCP - General Internal Medicine 05/06/21 documented as of this encounter
--- OUTSIDE RECORDS SUMMARY | 2025-03-17 13:51 | XMS_ITS | Encounter Summary ---
Author Organization [facility] and [facility] Address [address] [place] [address] Care Team Providers Care Model And Dye Person Name Role Phone Caitlyn Bowie MD Primary Care Provider +1- [phone] Encounter Details Date Type Department Care Team (Late st Contact Info) Description 12/06/2018 Scanned Document [facility] Health Information Management [address] [place] [address] External, Provider Social History Tobacco Use Types [...] at [facility] 240 [facility] Building [address] [place], [place] [phone] Ronald Mills MD [address] [place] [address] [address]1 [place] [address] documented as of this encounter [...] of this encounter Care Teams Model And Dye Person Relationship Specialty Start Date End Date Caitlyn Bowie MD 3400 [facility] 1 [place] [address] PCP - General Internal Medicine 05/06/21 Henry Kelly MD Pulmonary Department 175 [facility] [place] [address] Physician Pulmonary Disease 09/06/17 06/22/20 documented as of this encounter
--- OUTSIDE RECORDS SUMMARY | 2025-03-17 13:51 | XMS_ITS | Encounter Summary ---
Author Organization [facility] and [facility] Address [address] [place] [address] Care Team Providers Care Bargeman Name Role Phone Caitlyn Bowie MD Primary Care Provider +1- [phone] Encounter Details Date Type Department Care Team (Late st Contact Info) Description 10/24/2022 Scanned Document INTERFACE DEFAULT [address] [place] [address] System, Provider Not In Social History Tobacco [...] Center at [facility] 240 [facility] Building [address] [place], [place] [address] Ronald Mills MD [address] [place] [address] [address] [place] [address] documented as of this encounter [...] documented as of this encounter Care Teams Bargeman Relationship Specialty Start Date End Date Caitlyn Bowie MD [facility] [address] [address] PCP - General Internal Medicine 05/06/21 documented as of this encounter
--- OUTSIDE RECORDS SUMMARY | 2025-03-17 13:51 | XMS_ITS | Encounter Summary ---
Author Organization [facility] and [facility] Address [address] [place] [address] Care Team Providers Care Medical Lab Director Name Role Phone Caitlyn Bowie MD Primary Care Provider +1- [phone] Encounter Details Date Type Department Care Team (Late st Contact Info) Description 07/08/2022 Scanned Document Cardiovascular Medicine at [address] [place] [phone] Norma Renee MD [address] [place] [phone] Social History Tobacco Use Types Packs/Day Years [...] PM EDT Telemedicine Cancer Center at [address] [place] [address] Ronald Mills MD [address] [place] [address] [address] [place] [address] documented as of this encounter Visit Diagnoses Not on filedocumented in this encounter Additional Health Concerns Assessment Noted Time PHQ-9 Depression Total Score: 2 11/07/19 19 2:06 PM EDT documented as of this encounter Care Teams Medical Lab Director Relationship Specialty Start Date End Date Caitlyn Bowie MD [address] [address] PCP - General Internal Medicine 05/06/21 documented as of this encounter
--- OUTSIDE RECORDS SUMMARY | 2025-03-17 13:51 | XMS_ITS | Encounter Summary ---
Author Organization [facility] Address [address] [place] [address] Care Team Providers Care Painter And Paperhanger Apprentice Name Role Phone Pcp, No Primary Care Provider Brennan Mario MD Primary Care Provider [phone] Caitlyn Bowie MD Primary Care Provider +1- [phone] Encounter Details Date Type Department Care Team (Late st Contact Info) Description 01/04/2022 Scanned Document [facility] [address] [address] Yary Whitten DO [address] [place] [address] Social History Tobacco Use Types Packs/Day [...] on filedocumented in this encounter Care Teams Painter And Paperhanger Apprentice Relationship Specialty Start Date End Date Pcp, No PCP - General General Medicine 10/04/21 07/18/22 Brennan Burnett MD [address] [place] [address] PCP - General 07/19/22 03/19/23 Caitlyn Bowie MD 3400 [place] [address] PCP - General Internal Medicine 03/20/23 documented as of this encounter
--- OUTSIDE RECORDS SUMMARY | 2025-03-17 13:51 | XMS_ITS | Encounter Summary ---
Author Organization [facility] Address [address] [place] [address] Care Team Providers Care Sex Crimes Detective Name Role Phone aCitlyn Bowie MD Primary Care Provider +1- [phone] Encounter Details Date Type Department Care Team (Late st Contact Info) Description 09/09/2015 Scanned Document [facility] Health Information Management [address] [place] [address] External, Provider Social History Tobacco Use Types [...] [facility] 240 [facility] Building [address] [place], [place] [phone] Ronald Mills MD 240 [facility] [address] [place] [address] documented as of this encounter Procedures Procedure Name Priority Date/Time Associated Diagnosis Comments LAB SCAN Routine 09/09/2015 documented in this encounter Results * Lab Scan (09/09/2015) Blood specimen (specimen) us Provider External LAB BLOOD ORDERABLES Final Res ult [facility] documented in this encounter Visit Diagnoses Not on filedocumented in this encounter Additional Health Concerns Infection Onset Date Last Indicated Resolved Time COVID-19 03/05/2022 03/05/2022 03/15/2022 7:18 PM EDT documented as of this encounter Care Teams Sex Crimes Detective Relationship Specialty Start Date End Date Caitlyn Bowie MD 3400 [facility] 1 [place] [address] PCP - General Internal Medicine 05/06/21 Henry Kelly MD Pulmonary Department 175 [facility] [address] [place] [address] Physician Pulmonary Disease 09/06/17 06/22/20 documented as of this encounter
--- OUTSIDE RECORDS SUMMARY | 2025-03-17 13:51 | XMS_ITS | Encounter Summary ---
Author Organization [facility] and [facility] Address [address] [place] [address] Care Team Providers Care Drafter Name Role Phone Caitlyn Bowie MD Primary Care Provider +1- [phone] Encounter Details Date Type Department Care Team (Late st Contact Info) Description 06/21/2022 Scanned Document INTERFACE DEFAULT [address] [place] [address] System, Provider Not In Social History Tobacco [...] Telemedicine Cancer Center at [facility] 240 [facility] Building [address] [place], [place] [address] Ronald Mills MD [address] [place] [address] [address] [place] [address] documented as of this encounter [...] as of this encounter Care Teams Drafter Relationship Specialty Start Date End Date Caitlyn Bowie MD [address] [address] PCP - General Internal Medicine 05/06/21 documented as of this encounter
--- OUTSIDE RECORDS SUMMARY | 2025-03-17 13:51 | XMS_ITS | Encounter Summary ---
Author Organization [facility] Address [address] [place] [address] Phone Care Team Providers Care Switchboard Installer Name Role Phone Caitlyn Bowie MD Primary Care Provider +1- [phone] Encounter Details Date Type Department Care Team (Late st Contact Info) Description 10/10/2024 Documentation Only [facility] [address] [place] [address] Ron Taylor [place] [address] [place] [address] Social History Tobacco Use [...] Visit [facility] [address] [place] [address] Rubén Ashraf MD [address] [place] [address] [place] [address] documented as of this encounter Visit Diagnoses Not on filedocumented in this encounter Care Teams Switchboard Installer Relationship Specialty Start Date End Date Caitlyn Bowie MD [address]00 [place], [place] PCP - General Internal Medicine 09/24/24 documented as of this encounter
--- OUTSIDE RECORDS SUMMARY | 2025-03-17 13:51 | XMS_ITS | Encounter Summary ---
Author Organization [facility] and [facility] Address [address] [place] [address] Care Team Providers Care Docking Pilot Name Role Phone Caitlyn Bowie MD Primary Care Provider +1- [phone] Reason for Visit * Reason Comments Advice Only mass Encounter Details Date Type Department Care Team (Late st Contact Info) Description 09/06/2021 Telephone [facility] at [address] [id number] Ronald Mills MD [address] [place] [phone] Advice Only (mass) Social History Tobacco [...] at [facility] 240 [facility] Building [address] [place], [place] [phone] Ronald Mills MD 240 [facility] [address] [place] [phone] documented as of this encounter Visit Diagnoses Not on filedocumented in this encounter Additional Health Concerns Infection Onset Date Last Indicated Resolved Time COVID-19 03/05/2022 03/05/2022 03/15/2022 7:18 PM EDT Assessment Noted Time PHQ-9 Depression Total Score: 2 11/07/19 19 2:06 PM EDT documented as of this encounter Care Teams Docking Pilot Relationship Specialty Start Date End Date Caitlyn Bowie MD [address] [address] PCP - General Internal Medicine 05/06/21 documented as of this encounter
--- OUTSIDE RECORDS SUMMARY | 2025-03-17 13:51 | XMS_ITS | Encounter Summary ---
Author Organization [facility] and [facility] Address [address] [place] [address] Care Team Providers Care Outreach Educator Name Role Phone Caitlyn Bowie MD Primary Care Provider +1- [phone] Encounter Details Date Type Department Care Team (Late st Contact Info) Description 09/02/2021 Scanned Document INTERFACE DEFAULT [address] [place] [address] System, Provider Not In Social History Tobacco [...] at [facility] 240 [facility] Building [address] [place], [place] [phone] Ronald Mills MD [address] [place] [address] [address] [place] [address] documented as of this encounter [...] as of this encounter Care Teams Outreach Educator Relationship Specialty Start Date End Date Caitlyn Bowie MD [address] [address] PCP - General Internal Medicine 05/06/21 documented as of this encounter
--- OUTSIDE RECORDS SUMMARY | 2025-03-17 13:51 | XMS_ITS | Encounter Summary ---
Author Organization [facility] and [facility] Address 20 [place] [address] Care Team Providers Care Hospital Medicine Director Name Role Phone Caitlyn Bowie MD Primary Care Provider +1- [phone] Encounter Details Date Type Department Care Team (Late st Contact Info) Description 09/24/2015 Scanned Document Digestive Diseases at 40 [facility] 40 [facility] 1A [place] [address] Kevin Espinoza MD [address] [place] [phone] Social History Tobacco Use Types Packs/Day [...] PM EDT Telemedicine Cancer Center at [address] [place], [place] [phone] Ronald Mills MD [address] [place] [address] [address]1 [place] [address] documented as of this encounter Visit Diagnoses Not on filedocumented in this encounter Additional Health Concerns Infection Onset Date Last Indicated Resolved Time COVID-19 03/05/2022 03/05/2022 03/15/2022 7:18 PM EDT documented as of this encounter Care Teams Hospital Medicine Director Relationship Specialty Start Date End Date Caitlyn Bowie MD 3400 [facility] 1 [place] [address] PCP - General Internal Medicine 05/06/21 Henry Kelly MD Pulmonary Department 175 [facility], [address] [place] [address] Physician Pulmonary Disease 09/06/17 06/22/20 documented as of this encounter
--- OUTSIDE RECORDS SUMMARY | 2025-03-17 13:51 | XMS_ITS | Encounter Summary ---
Author Organization [facility] and [facility] Address [address] [place] [address] Care Team Providers Care Canvas Marker Name Role Phone Caitlyn Bowie MD Primary Care Provider +1- [phone] Encounter Details Date Type Department Care Team (Late st Contact Info) Description 06/23/2022 Scanned Document INTERFACE DEFAULT [address] [place] [address] System, Provider Not In Social History Tobacco [...] – [facility] 240 [facility] [address] [place] [address] Ronald Mills MD [address] [place] [address] [address]1 [place] [address] documented as of this encounter Visit Diagnoses Not on filedocumented in this encounter Additional Health Concerns Assessment Noted Time PHQ-9 Depression Total Score: 2 11/07/19 19 2:06 PM EDT documented as of this encounter Care Teams Canvas Marker Relationship Specialty Start Date End Date Caitlyn Bowie MD [address] [address] PCP - General Internal Medicine 05/06/21 documented as of this encounter
--- OUTSIDE RECORDS SUMMARY | 2025-03-17 13:52 | XMS_ITS | Encounter Summary ---
Author Organization [facility] and [facility] Address [address] [place] [address] Care Team Providers Care Cash Controller Name Role Phone Caitlyn Bowie MD Primary Care Provider +1- [phone] Encounter Details Date Type Department Care Team (Late st Contact Info) Description 04/19/2022 Scanned Document INTERFACE DEFAULT [address] [place] [address] System, Provider Not In Social History Tobacco [...] [facility] 240 [facility] Building [address] [place], [place] [address] Ronald Mills MD [address] [place] [address] [address] [place] [address] documented as of this encounter [...] as of this encounter Care Teams Cash Controller Relationship Specialty Start Date End Date Caitlyn Bowie MD [address] [address] PCP - General Internal Medicine 05/06/21 documented as of this encounter
--- OUTSIDE RECORDS SUMMARY | 2025-03-17 13:52 | XMS_ITS | Encounter Summary ---
Author Organization [facility] and [facility] Address [address] [place] [address] Care Team Providers Care Wire Coating Machine Operator Name Role Phone Caitlyn Bowie MD Primary Care Provider +1- [phone] Encounter Details Date Type Department Care Team (Late st Contact Info) Description 12/01/2015 Scanned Document [facility] Health Information Management [address] [place] [address] External, Provider Social History Tobacco Use Types [...] [facility] 240 [facility] Building [address] [place], [place] [phone] Ronald Mills MD 240 [facility] Max [address] [place] [address] documented as of this encounter Procedures Procedure Name Priority Date/Time Associated Diagnosis Comments CT RESULT SCAN Routine 12/01/2015 documented in this encounter Results * CT Result Scan (12/01/2015) us Provider External IMG SCAN REPORTS Edited Result - Final [facility] [place], [place], [facility] documented in this encounter Visit Diagnoses Not on filedocumented in this encounter Additional Health Concerns Infection Onset Date Last Indicated Resolved Time COVID-19 03/05/2022 03/05/2022 03/15/2022 7:18 PM EDT documented as of this encounter Care Teams Wire Coating Machine Operator Relationship Specialty Start Date End Date Caitlyn Bowie MD 3400 [facility] Max 1 [place] [address] PCP - General Internal Medicine 05/06/21 Henry Kelly MD Pulmonary Department 175 [facility], [address] [place] [address] Physician Pulmonary Disease 09/06/17 06/22/20 documented as of this encounter
--- OUTSIDE RECORDS SUMMARY | 2025-03-17 13:52 | XMS_ITS | Encounter Summary ---
Author Organization [facility] and [facility] Address [address] [place] [address] Care Team Providers Care Window Tinter Name Role Phone Caitlyn Bowie MD Primary Care Provider +1- [phone] Encounter Details Date Type Department Care Team (Late st Contact Info) Description 05/02/2022 Scanned Document INTERFACE DEFAULT [address] [place] [address] System, Provider Not In Social History Tobacco [...] at [facility] 240 [facility] Building [address] [place] [address] Ronald Mills MD [address] [place] [address] [address] [place] [address] documented as of this encounter [...] documented as of this encounter Care Teams Window Tinter Relationship Specialty Start Date End Date Caitlyn Bowie MD [address] [address] PCP - General Internal Medicine 05/06/21 documented as of this encounter
--- OUTSIDE RECORDS SUMMARY | 2025-03-17 13:52 | XMS_ITS | Encounter Summary ---
Author Organization [facility] and [facility] Address [address] [place] [address] Care Team Providers Care Barn Manager Name Role Phone Caitlyn Bowie MD Primary Care Provider +1- [phone] Encounter Details Date Type Department Care Team (Late st Contact Info) Description 12/03/2015 Scanned Document [facility] Health Information Management [address] [place] [address] External, Provider Social History Tobacco Use Types [...] at [facility] 240 [facility] Building [address] [place], [place] [phone] Ronald Mills MD 240 [facility] [address] [place] [address] documented as of this encounter Procedures Procedure Name Priority Date/Time Associated Diagnosis Comments LAB SCAN Routine 12/03/2015 documented in this encounter Results * Lab Scan (12/03/2015) Blood specimen (specimen) us Provider External LAB BLOOD ORDERABLES Edited Re sult - Final [facility] documented in this encounter Visit Diagnoses Not on filedocumented in this encounter Additional Health Concerns Infection Onset Date Last Indicated Resolved Time COVID-19 03/05/2022 03/05/2022 03/15/2022 7:18 PM EDT documented as of this encounter Care Teams Barn Manager Relationship Specialty Start Date End Date Caitlyn Bowie MD 3400 [facility] 1 [place] [address] PCP - General Internal Medicine 05/06/21 Henry Kelly MD Pulmonary Department 175 [facility], [address] [place] [address] Physician Pulmonary Disease 09/06/17 06/22/20 documented as of this encounter
--- OUTSIDE RECORDS SUMMARY | 2025-03-17 13:52 | XMS_ITS | Encounter Summary ---
Author Organization [facility] and [facility] Address [address] [place] [address] Care Team Providers Care Windchill Administrator Name Role Phone Caitlyn Bowie MD Primary Care Provider +1- [phone] Encounter Details Date Type Department Care Team (Late st Contact Info) Description 04/22/2019 Scanned Document [facility] Health Information Management [address] [place] [address] External, Provider Social History Tobacco Use Types [...] [facility] 240 [facility] Building [address] [place] [address] Ronald Mills MD [address] [place] [address] [address]1 [place] [address] documented as of this encounter Visit Diagnoses Not on filedocumented in this encounter Additional Health Concerns Infection Onset Date Last Indicated Resolved Time COVID-19 03/05/2022 03/05/2022 03/15/2022 7:18 PM EDT Assessment Noted Time PHQ-9 Depression Total Score: 2 11/07/19 19 2:06 PM EDT documented as of this encounter Care Teams Windchill Administrator Relationship Specialty Start Date End Date Caitlyn Bowie MD 3400 [facility] 1 [place] [address] PCP - General Internal Medicine 05/06/21 Henry Kelly MD Pulmonary Department 175 [facility], [address] [place] [address] Physician Pulmonary Disease 09/06/17 06/22/20 documented as of this encounter
--- OUTSIDE RECORDS SUMMARY | 2025-03-17 13:52 | XMS_ITS | Encounter Summary ---
Author Organization [facility] and [facility] Address 20 [place] [address] Care Team Providers Care Plant Maintenance Worker Name Role Phone Caitlyn Bowie MD Primary Care Provider +1- [phone] Encounter Details Date Type Department Care Team (Late st Contact Info) Description 01/28/2019 Scanned Document Cardiovascular Medicine at [address] [place] [address] Cristian Arreguin MBBS [address] [place] [address] Social History Tobacco Use Types [...] PM EDT Telemedicine Cancer Center at [address] [place] [address] Ronald Mills MD [address] [place] [address] [address]1 [place] [address] documented as of this encounter Visit Diagnoses Not on filedocumented in this encounter Additional Health Concerns Infection Onset Date Last Indicated Resolved Time COVID-19 03/05/2022 03/05/2022 03/15/2022 7:18 PM EDT Assessment Noted Time PHQ-9 Depression Total Score: 2 11/07/19 19 2:06 PM EDT documented as of this encounter Care Teams Plant Maintenance Worker Relationship Specialty Start Date End Date Caitlyn Bowie MD 3400 [facility] 1 [place] [address] PCP - General Internal Medicine 05/06/21 Henry Kelly MD Pulmonary Department [address] [place] [address], [address] [place] [address] Physician Pulmonary Disease 09/06/17 06/22/20 documented as of this encounter
--- OUTSIDE RECORDS SUMMARY | 2025-03-17 13:52 | XMS_ITS | Encounter Summary ---
Author Organization [facility] and [facility] Address [address] [place] [address] Care Team Providers Care Sql Bi Developer Name Role Phone Caitlyn Bowie MD Primary Care Provider +1- [phone] Encounter Details Date Type Department Care Team (Late st Contact Info) Description 02/06/2019 Scanned Document [facility] Health Information Management [address] [place] [address] External, Provider Social History Tobacco Use Types [...] Center at [facility] 240 [facility] Building [address] [place] [address] Ronald Mills MD [address] [place] [address] [address]1 [place] [address] documented as of this encounter [...] as of this encounter Care Teams Sql Bi Developer Relationship Specialty Start Date End Date Caitlyn Bowie MD 3400 [facility] 1 [place] [address] PCP - General Internal Medicine 05/06/21 Henry Kelly MD Pulmonary Department 175 [facility], [address] [place] [address] Physician Pulmonary Disease 09/06/17 06/22/20 documented as of this encounter
--- OUTSIDE RECORDS SUMMARY | 2025-03-17 13:52 | XMS_ITS | Encounter Summary ---
Author Organization [facility] and [facility] Address 20 [place] [address] Care Team Providers Care Generator Repairer Name Role Phone Caitlyn Bowie MD Primary Care Provider +1- [phone] Reason for Visit * Reason Comments Results Encounter Details Date Type Department Care Team (Late st Contact Info) Description 03/15/2022 Telephone [facility] at [address] [address] Ronald Mills MD [address] [place] [address] Results Social History Tobacco Use Types [...] [facility] 240 [facility] Building [address] [place] [address] Ronald Mills MD 240 [facility] [address] [place] [address] documented as of this encounter Visit Diagnoses Not on filedocumented in this encounter Additional Health Concerns Infection Onset Date Last Indicated Resolved Time COVID-19 03/05/2022 03/05/2022 03/15/2022 7:18 PM EDT Assessment Noted Time PHQ-9 Depression Total Score: 2 11/07/19 19 2:06 PM EDT documented as of this encounter Care Teams Generator Repairer Relationship Specialty Start Date End Date Caitlyn Bowie MD [address] [address] PCP - General Internal Medicine 05/06/21 documented as of this encounter
--- OUTSIDE RECORDS SUMMARY | 2025-03-17 13:52 | XMS_ITS | Encounter Summary ---
Author Organization [facility] Address [address] [place] [address] Care Team Providers Care Account Manager Forest Service Name Role Phone Caitlyn Bowie MD Primary Care Provider +1- [phone] Encounter Details Date Type Department Care Team (Late st Contact Info) Description 03/20/2023 Scanned Document [facility] Radiology [address] [place] [address] Caitlyn Bowie MD [address]00 [place] [address] Social History Tobacco Use Types Packs/Day Years [...] on filedocumented in this encounter Care Teams Account Manager Forest Service Relationship Specialty Start Date End Date Caitlyn Bowie MD [address]00 [place] [address] PCP - General Internal Medicine 03/20/23 documented as of this encounter
--- OUTSIDE RECORDS SUMMARY | 2025-03-17 13:52 | XMS_ITS | Encounter Summary ---
Author Organization [facility] and [facility] Address [address] [place] [address] Care Team Providers Care Business Controller Name Role Phone Caitlyn Bowie MD Primary Care Provider +1- [phone] Encounter Details Date Type Department Care Team (Late st Contact Info) Description 01/26/2019 Scanned Document [facility] Health Information Management [address] [place] [address] External, Provider Social History Tobacco Use Types [...] Center at [facility] 240 [facility] Building [address] [place] [address] Ronald Mills MD [address] [place] [address] [address]1 [place] [address] documented as of this encounter [...] as of this encounter Care Teams Business Controller Relationship Specialty Start Date End Date Caitlyn Bowie MD 3400 [facility] 1 [place] [address] PCP - General Internal Medicine 05/06/21 Henry Kelly MD Pulmonary Department 175 [facility], [address] [place] [address] Physician Pulmonary Disease 09/06/17 06/22/20 documented as of this encounter
--- OUTSIDE RECORDS SUMMARY | 2025-03-17 13:52 | XMS_ITS | Encounter Summary ---
Author Organization [facility] and [facility] Address [address] [place] [address] Care Team Providers Care Lay Out And Detail Drafter Name Role Phone Caitlyn Bowie MD Primary Care Provider +1- [phone] Encounter Details Date Type Department Care Team (Late st Contact Info) Description 05/04/2022 Scanned Document INTERFACE DEFAULT [address] [place] [address] System, Provider Not In Social History Tobacco [...] [facility] 240 [facility] Building [address] [place] [address] Ronald Mills MD [address] [place] [address] [address]1 [place] [address] documented as of this encounter Visit Diagnoses Not on filedocumented in this encounter Additional Health Concerns Assessment Noted Time PHQ-9 Depression Total Score: 2 11/07/19 19 2:06 PM EDT documented as of this encounter Care Teams Lay Out And Detail Drafter Relationship Specialty Start Date End Date Caitlyn Bowie MD [address] [address] PCP - General Internal Medicine 05/06/21 documented as of this encounter
--- OUTSIDE RECORDS SUMMARY | 2025-03-17 13:52 | XMS_ITS | Encounter Summary ---
Author Organization [facility] and [facility] Address [address] [place] [address] Care Team Providers Care Global Logistics Analyst Name Role Phone Caitlyn Bowie MD Primary Care Provider +1- [phone] Encounter Details Date Type Department Care Team (Late st Contact Info) Description 11/04/2015 Scanned Document [facility] Health Information Management [address] [place] [address] External, Provider Social History Tobacco Use Types [...] 240 [facility] Building [address] [place], [place] [address] Ronald Mills MD 240 [facility] Max [address]1 [place] [address] documented as of this encounter Procedures Procedure Name Priority Date/Time Associated Diagnosis Comments NUC MED/PET RESULT SCAN Routine 11/04/2015 documented in this encounter Results * Nuc Med/PET Result Scan (11/04/2015) us Provider External IMG SCAN REPORTS Edited Result - Final [facility] [place], [place], [facility] documented in this encounter Visit Diagnoses Not on filedocumented in this encounter Additional Health Concerns Infection Onset Date Last Indicated Resolved Time COVID-19 03/05/2022 03/05/2022 03/15/2022 7:18 PM EDT documented as of this encounter Care Teams Global Logistics Analyst Relationship Specialty Start Date End Date Caitlyn Bowie MD 3400 [facility] Max 1 [place] [address] PCP - General Internal Medicine 05/06/21 Henry Kelly MD Pulmonary Department 175 [facility], [address] [place] [address] Physician Pulmonary Disease 09/06/17 06/22/20 documented as of this encounter
--- OUTSIDE RECORDS SUMMARY | 2025-03-17 13:52 | XMS_ITS | Encounter Summary ---
Author Organization [facility] and [facility] [place] Address [address] [place] [address] Care Team Providers Care Geomorphology Teacher Name Role Phone Caitlyn Bowie MD Primary Care Provider +1- [phone] Encounter Details Date Type Department Care Team (Late st Contact Info) Description 04/14/2022 Scanned Document INTERFACE DEFAULT [address] [place] [address] System, Provider Not In Social History Tobacco [...] [facility] 240 [facility] Building [address] [place] [address] Ronald Mills MD [address] [place] [address] [address]1 [place] [address] documented as of this encounter Visit Diagnoses Not on filedocumented in this encounter Additional Health Concerns Assessment Noted Time PHQ-9 Depression Total Score: 2 11/07/19 19 2:06 PM EDT documented as of this encounter Care Teams Geomorphology Teacher Relationship Specialty Start Date End Date Caitlyn Bowie MD [address] [address] PCP - General Internal Medicine 05/06/21 documented as of this encounter
--- OUTSIDE RECORDS SUMMARY | 2025-03-17 13:52 | XMS_ITS | Encounter Summary ---
Author Organization [facility] and [facility] Address [address] [place] [address] Care Team Providers Care Tram Driver Name Role Phone Caitlyn Bowie MD Primary Care Provider +1- [phone] Encounter Details Date Type Department Care Team (Late st Contact Info) Description 01/08/2022 Scanned Document INTERFACE DEFAULT [address] [place] [address] System, Provider Not In Social History Tobacco [...] – [facility] 240 [facility] Building [address] [place], [place] [address] Ronald Mills MD [address] [place] [address] [address] [place] [address] documented as of this encounter [...] documented as of this encounter Care Teams Tram Driver Relationship Specialty Start Date End Date Caitlyn Bowie MD [address] [address] PCP - General Internal Medicine 05/06/21 documented as of this encounter
--- OUTSIDE RECORDS SUMMARY | 2025-03-17 13:52 | XMS_ITS | Encounter Summary ---
Author Organization [facility] and [facility] Address [address] [place] [address] Care Team Providers Care Social Service Liaison Name Role Phone Caitlyn Bowie MD Primary Care Provider +1- [phone] Encounter Details Date Type Department Care Team (Latest Contact Info) Description 12/25/2015 Transcribed Orders [facility] Draw Station [address] [facility] [place] [address] Osmel Briscoe MD Other abnormality of red [...] PM EDT [facility] at [address] [place], [place] [id number] Ronald Mills MD [address] [place] [address] [address] [place] [address] documented as of this encounter Results * Free kappa lambda with ratio, serum ( GH Q YH) (12/25/2015 10:09 AM EDT) Ig [place] Free Light Chain 1.84 0.33 - 1.94 mg/dL [facility] Ig Lambda Free Light Chain 1.96 0.57 - 2.63 mg/dL [facility] [place]/Lambda FLC Ratio 0.94 0.26 - 1.65 [facility] Blood specimen (specimen) 12/25/2015 10:09 AM EDT Result [facility] Osmel Briscoe MD LAB BLOOD ORDERABLES Final R esult Performing Organization Address [facility] Co de Phone Number [facility] [address] [place] [address] * Immunofixation, serum ( L Q YH) (12/25/2015 10:09 AM EDT) [facility] Immunofixation Electrophoresis Gel See below See [...] ORDERABLES Final R esult Performing Organization Address [facility] Co de Phone Number [facility] [address] [place] [address] * (ABNORMAL) Protein electrophoresis, serum ( GH L YH) (12/25/2015 10:09 AM EDT) Albumin Electrophoresis 3.45(L) 3.50 - 4.70 g/dL [facility] Rowuu-9-Cyzcywog 0.16 0.10 - 0.30 g/dL [facility] Vubcv-9-Ytvuswex 0.81 0.60 - 1.00 g/dL [facility] [...] ORDERABLES Final R esult Performing Organization Address [facility] Co de Phone Number [facility] [address] [place] [address] * Reticulocytes (GH L Q YH) (12/25/2015 10:09 AM EDT) Reticulocyte Count 2.1 0.6 - 2.7 % [facility] Blood specimen (specimen) 12/25/2015 10:09 AM EDT Osmel Briscoe MD LAB BLOOD ORDERABLES Final R esult Performing Organization Address [facility] Co de Phone Number [facility] [address] [place] [address] * (ABNORMAL) Sedimentation rate (ESR) (12/25/2015 10:09 AM EDT) Sed Rate 27(H) 0 - 20 mm/hr [facility] Blood specimen (specimen) 12/25/2015 10:09 AM EDT us Osmel Briscoe MD LAB BLOOD ORDERABLES Final R esult Performing Organization Address [facility] Co de Phone Number [facility] [address] [place] [address] * Ferritin (12/25/2015 10:09 AM EDT) Ferritin 68 9 - 120 ng/mL [facility] Blood specimen (specimen) 12/25/2015 10:09 AM EDT Osmel Briscoe MD LAB BLOOD ORDERABLES Final R esult Performing Organization Address [facility] Co de Phone Number [facility] [address] [place] [address] * Iron and TIBC (12/25/2015 10:09 AM EDT) Iron 110 50 - 170 ug/dL [facility] TIBC 290 250 - 450 ug/dL [facility] Iron Saturation 38 15 - 50 [facility] Blood specimen (specimen) 12/25/2015 10:09 AM EDT Osmel Briscoe MD LAB BLOOD ORDERABLES Final R esult Performing Organization Address [facility] Co de Phone Number [facility] [address] [place] [address] * Vitamin D 25 hydroxy (BH L [...] ORDERABLES Final R esult Performing Organization Address City/[facility]/ZIP Co de Phone Number [facility] [address] [place] [address] * TSH (BH L YH) (12/25/2015 10:09 AM EDT) TSH cancelled 0.3 - 4.2 uU/mL [facility] TSH 1.62 0.3 - 4.2 uU/mL [facility] Comment:This test is a third generation TSH assay. Blood specimen (specimen) 12/25/2015 10:09 AM EDT Osmel Briscoe MD LAB BLOOD ORDERABLES Final R esult Performing Organization Address City/[facility] Co de Phone Number [facility] [address] [place] [address] * (ABNORMAL) CBC and differential (12/25/2015 10:09 AM EDT) Pathologist [facility] CBC with Differential See Below [facility] Monocytes 10 2 - 15 % [facility] Eosinophils 1 0 - 5 % [facility] Basophils 0 0 - 2 % [facility] ANC (Abs Neutrophil Count) 8.1 1.0 - 9.0 x 1000/uL [facility] Absolute Lymphocyte Count 0.7 0.6 - 4.6 x 1000/uL [facility] Blood specimen (specimen) ARM NEC / Unknown 12/25/2015 10:09 AM EDT us Osmel Briscoe MD LAB BLOOD ORDERABLES Final R esult [facility] [address] [place] [address] documented in this encounter Visit Diagnoses Diagnosis [...] as of this encounter Care Teams Social Service Liaison Relationship Specialty Start Date End Date Caitlyn Bowie MD [address] [address] PCP - General Internal Medicine 05/06/21 Henry Kelly MD Pulmonary Department 175 [facility], [address] [place] [address] Physician Pulmonary Disease 09/06/17 06/22/20 documented as of this encounter
--- OUTSIDE RECORDS SUMMARY | 2025-03-17 13:52 | XMS_ITS | Encounter Summary ---
Author Organization [facility] Address [address] [place] [address] Care Team Providers Care Application Development Consultant Name Role Phone Pcp, No Primary Care Provider Brennan Mario MD Primary Care Provider [phone] Caitlyn Bowie MD Primary Care Provider +1- [phone] Encounter Details Date Type Department Care Team (Late st Contact Info) Description 01/04/2022 Scanned Document [facility] Neurology Ophthalmology [address] [address] Yary Whitten DO [address] [place] [address] Social History Tobacco Use Types Packs/Day [...] filedocumented in this encounter Care Teams Application Development Consultant Relationship Specialty Start Date End Date Pcp, No PCP - General General Medicine 10/04/21 07/18/22 Brennan Burnett MD [address] [place] [address] PCP - General 07/19/22 03/19/23 Caitlyn Bowie MD [address] [place] [address] PCP - General Internal Medicine 03/20/23 documented as of this encounter
--- OUTSIDE RECORDS SUMMARY | 2025-03-17 13:52 | XMS_ITS | Encounter Summary ---
Author Organization [facility] and [facility] Address [address] [place] [address] Care Team Providers Care Farmworker Grain Name Role Phone Caitlyn Bowie MD Primary Care Provider +1- [phone] Encounter Details Date Type Department Care Team (Late st Contact Info) Description 03/02/2022 Scanned Document [facility] Health Information Management [address] [place] [address] External, Provider Social History Tobacco Use Types [...] [facility] [address] [facility] Building [address] [place], [place] [phone] Ronald Mills MD [address] [place] [address] [address] [place] [address] documented as of this encounter Visit Diagnoses Not on filedocumented in this encounter Additional Health Concerns Infection Onset Date Last Indicated Resolved Time COVID-19 03/05/2022 03/05/2022 03/15/2022 7:18 PM EDT Assessment Noted Time PHQ-9 Depression Total Score: 2 11/07/19 19 2:06 PM EDT documented as of this encounter Care Teams Farmworker Grain Relationship Specialty Start Date End Date Caitlyn Bowie MD [address] [address] PCP - General Internal Medicine 05/06/21 documented as of this encounter
--- OUTSIDE RECORDS SUMMARY | 2025-03-17 13:52 | XMS_ITS | Encounter Summary ---
Author Organization [facility] Address [address] [place] [address] Care Team Providers Care Director Of Infection Prevention Name Role Phone Caitlyn Bowie MD Primary Care Provider +1- [phone] Encounter Details Date Type Department Care Team (Late st Contact Info) Description 04/12/2022 Scanned Document INTERFACE DEFAULT [address] [place] [address] System, Provider Not In Social History Tobacco [...] [facility] [address] [facility] [address] [place] [address] Ronald Mills MD [address] [place] [address] [address] [place] [address] documented as of this encounter [...] of this encounter Care Teams Director Of Infection Prevention Relationship Specialty Start Date End Date Caitlyn Bowie MD [address] [address] PCP - General Internal Medicine 05/06/21 documented as of this encounter
--- OUTSIDE RECORDS SUMMARY | 2025-03-17 13:52 | XMS_ITS | Encounter Summary ---
Author Organization [facility] and [facility] Address [address] [place] [address] Care Team Providers Care Muck Miner Name Role Phone Caitlyn Bowie MD Primary Care Provider +1- [phone] Encounter Details Date Type Department Care Team (Late st Contact Info) Description 03/12/2019 Scanned Document [facility] Health Information Management [address] [place] [address] External, Provider Social History Tobacco Use Types [...] [facility] Building [address] [place] [address] Ronald Mills MD [address] [place] [address] [address] [place] [address] documented as of this encounter [...] documented as of this encounter Care Teams Muck Miner Relationship Specialty Start Date End Date Caitlyn Bowie MD [address] [facility] 1 [place] [address] PCP - General Internal Medicine 05/06/21 Henry Kelly MD Pulmonary Department 175 [facility], [address] [place] [address] Physician Pulmonary Disease 09/06/17 06/22/20 documented as of this encounter
--- OUTSIDE RECORDS SUMMARY | 2025-03-17 13:52 | XMS_ITS | Encounter Summary ---
Author Organization [facility] and [facility] Address [address] [place] [address] Care Team Providers Care Construction Worker Name Role Phone Caitlyn Bowie MD Primary Care Provider +1- [phone] Encounter Details Date Type Department Care Team (Late st Contact Info) Description 12/31/2015 Scanned Document [facility] [address] [place] [address] External, Provider Social History Tobacco Use Types [...] [facility] 240 [facility] Building [address] [place], [place] [phone] Ronald Mills MD [address] [place] [address] [address] [place] [address] documented as of this encounter Procedures Procedure Name Priority Date/Time Associated Diagnosis Comments LAB SCAN Routine 12/31/2015 documented in this encounter Results * Lab Scan (12/31/2015) Blood specimen (specimen) us Provider External LAB BLOOD ORDERABLES Final Res ult Performing Organization Address City/State/[facility] Co de Phone Number [facility] documented in this encounter Visit Diagnoses Not on filedocumented in this encounter Additional Health Concerns Infection Onset Date Last Indicated Resolved Time COVID-19 03/05/2022 03/05/2022 03/15/2022 7:18 PM EDT documented as of this encounter Care Teams Construction Worker Relationship Specialty Start Date End Date Caitlyn Bowie MD 3400 [facility] 1 [place] [address] PCP - General Internal Medicine 05/06/21 Henry Kelly MD Pulmonary Department 175 [facility], [address] [place] [address] Physician Pulmonary Disease 09/06/17 06/22/20 documented as of this encounter
--- OUTSIDE RECORDS SUMMARY | 2025-03-17 13:52 | XMS_ITS | Encounter Summary ---
Author Organization [facility] and [facility] Address [address] [place] [address] Care Team Providers Care Maple Products Maker Name Role Phone Caitlyn Bowie MD Primary Care Provider +1- [phone] Encounter Details Date Type Department Care Team (Late st Contact Info) Description 04/28/2022 Scanned Document INTERFACE DEFAULT [address] [place] [address] System, Provider Not In Social History Tobacco [...] [facility] 240 [facility] Building [address] [place], [place] [address] Ronald Mills MD [address] [place] [address] [address] [place] [address] documented as of this encounter [...] documented as of this encounter Care Teams Maple Products Maker Relationship Specialty Start Date End Date Caitlyn Bowie MD [facility] [address] [address] PCP - General Internal Medicine 05/06/21 documented as of this encounter
--- OUTSIDE RECORDS SUMMARY | 2025-03-17 13:52 | XMS_ITS | Encounter Summary ---
Author Organization [facility] Address [address] [place] [address] Care Team Providers Care Visual Presentation Manager Name Role Phone Caitlyn Bowie MD Primary Care Provider +1- [phone] Encounter Details Date Type Department Care Team (Late st Contact Info) Description 09/09/2015 Scanned Document [facility] Health Information Management [address] [place] [address] External, Provider Social History Tobacco Use Types [...] [facility] 240 [facility] [address] [place], [place] [address] Ronald Mills MD 240 [facility] [address] [place] [address] documented as of this encounter Procedures Procedure Name Priority Date/Time Associated Diagnosis Comments LAB SCAN Routine 09/09/2015 documented in this encounter Results * Lab Scan (09/09/2015) Blood specimen (specimen) us Provider External LAB BLOOD ORDERABLES Final Res ult Performing Organization Address City/State/[facility] Co de Phone Number [facility] documented in this encounter Visit Diagnoses Not on filedocumented in this encounter Additional Health Concerns Infection Onset Date Last Indicated Resolved Time COVID-19 03/05/2022 03/05/2022 03/15/2022 7:18 PM EDT documented as of this encounter Care Teams Visual Presentation Manager Relationship Specialty Start Date End Date Caitlyn Bowie MD 3400 [facility] 1 [place] [address] PCP - General Internal Medicine 05/06/21 Henry Kelyl MD Pulmonary Department 175 [facility], [address] [place] [address] Physician Pulmonary Disease 09/06/17 06/22/20 documented as of this encounter
--- OUTSIDE RECORDS SUMMARY | 2025-03-17 13:52 | XMS_ITS | Encounter Summary ---
Author Organization [facility] and [facility] Address [address] [place] [address] Care Team Providers Care Recovery Collector Name Role Phone Caitlyn Bowie MD Primary Care Provider +1- [phone] Encounter Details Date Type Department Care Team (Late st Contact Info) Description 09/09/2015 Scanned Document [facility] Health Information Management [address] [place] [address] External, Provider Social History Tobacco Use Types [...] [facility] 240 [facility] Building [address] [place], [place] [phone] Ronald Mills MD 240 [facility] [address] [place] [address] documented as of this encounter Procedures Procedure Name Priority Date/Time Associated Diagnosis Comments LAB SCAN Routine 09/09/2015 documented in this encounter Results * Lab Scan (09/09/2015) Blood specimen (specimen) us Provider External LAB BLOOD ORDERABLES Final Res ult [facility] documented in this encounter Visit Diagnoses Not on filedocumented in this encounter Additional Health Concerns Infection Onset Date Last Indicated Resolved Time COVID-19 03/05/2022 03/05/2022 03/15/2022 7:18 PM EDT documented as of this encounter Care Teams Recovery Collector Relationship Specialty Start Date End Date Caitlyn Bowie MD 3400 [facility] 1 [place] [address] PCP - General Internal Medicine 05/06/21 Henry Kelly MD Pulmonary Department 175 [facility], [address] [place] [address] Physician Pulmonary Disease 09/06/17 06/22/20 documented as of this encounter
--- OUTSIDE RECORDS SUMMARY | 2025-03-17 13:52 | XMS_ITS | Encounter Summary ---
Author Organization [facility] Address [address] [place] [address] Care Team Providers Care Direct Marketing Executive Name Role Phone Caitlyn Bowie MD Primary Care Provider +1- [phone] Encounter Details Date Type Department Care Team (Late st Contact Info) Description 04/22/2022 Scanned Document INTERFACE DEFAULT [address] [place] [address] System, Provider Not In Social History Tobacco [...] – [facility] 240 [facility] Building [address] [place], [place] [phone] Ronald Mills MD [address] [place] [address] [address] [place] [address] documented as of this encounter [...] documented as of this encounter Care Teams Direct Marketing Executive Relationship Specialty Start Date End Date Caitlyn Bowie MD [address] [address] PCP - General Internal Medicine 05/06/21 documented as of this encounter
--- OUTSIDE RECORDS SUMMARY | 2025-03-17 13:52 | XMS_ITS | Encounter Summary ---
Author Organization [facility] Address [address] [place] [address] Care Team Providers Care Fire Fighter Name Role Phone Caitlyn Bowie MD Primary Care Provider +1- [phone] Encounter Details Date Type Department Care Team (Late st Contact Info) Description 04/18/2022 Scanned Document INTERFACE DEFAULT [address] [place] [address] System, Provider Not In Social History Tobacco [...] [facility] Building [address] [place] [address] Ronald Mills MD [address] [place] [address] [address] [place] [address] documented as of this encounter Visit Diagnoses Not on filedocumented in this encounter Additional Health Concerns Assessment Noted Time PHQ-9 Depression Total Score: 2 11/07/19 19 2:06 PM EDT documented as of this encounter Care Teams Fire Fighter Relationship Specialty Start Date End Date Caitlyn Bowie MD [address] [address] PCP - General Internal Medicine 05/06/21 documented as of this encounter
--- OUTSIDE RECORDS SUMMARY | 2025-03-17 13:52 | XMS_ITS | Encounter Summary ---
Author Organization [facility] and [facility] Address [address] [place] [address] Care Team Providers Care Cardiothoracic Anesthesia Technician Name Role Phone Caitlyn Bowie MD Primary Care Provider +1- [phone] Encounter Details Date Type Department Care Team (Late st Contact Info) Description 11/03/2015 Scanned Document [facility] Health Information Management [address] [place] [address] External, Provider Social History Tobacco Use Types [...] [facility] [address] [facility] Building [address] [place], [place] [phone] Ronald Mills MD 240 [facility] [address] [place] [address] documented as of this encounter Procedures Procedure Name Priority Date/Time Associated Diagnosis Comments US RESULT SCAN Routine 11/03/2015 documented in this encounter Results * US Result Scan (11/03/2015) us Provider External IMG SCAN REPORTS Edited Result - Final [facility] [place], [place], [facility] documented in this encounter Visit Diagnoses Not on filedocumented in this encounter Additional Health Concerns Infection Onset Date Last Indicated Resolved Time COVID-19 03/05/2022 03/05/2022 03/15/2022 7:18 PM EDT documented as of this encounter Care Teams Cardiothoracic Anesthesia Technician Relationship Specialty Start Date End Date Caitlyn Bowie MD 3400 [facility] Max 1 [place] [address] PCP - General Internal Medicine 05/06/21 Henry Kelly MD Pulmonary Department 175 [facility], [address] [place] [address] Physician Pulmonary Disease 09/06/17 06/22/20 documented as of this encounter
--- OUTSIDE RECORDS SUMMARY | 2025-03-17 13:52 | XMS_ITS | Encounter Summary ---
Author Organization [facility] and [facility] Address [address] [place] [address] Care Team Providers Care Oil Driller Name Role Phone Caitlyn Bowie MD Primary Care Provider +1- [phone] Encounter Details Date Type Department Care Team (Late st Contact Info) Description 10/23/2018 Scanned Document [facility] Health Information Management [address] [place] [address] External, Provider Social History Tobacco Use Types [...] [facility] [address] [facility] Building [address] [place], [place] [phone] Ronald Mills MD [address] [place] [address] [address] [place] [address] documented as of this encounter Visit Diagnoses Not on filedocumented in this encounter Additional Health Concerns Infection Onset Date Last Indicated Resolved Time COVID-19 03/05/2022 03/05/2022 03/15/2022 7:18 PM EDT documented as of this encounter Care Teams Oil Driller Relationship Specialty Start Date End Date Caitlyn Bowie MD 3400 [facility] 1 [place] [address] PCP - General Internal Medicine 05/06/21 Henry Kelly MD Pulmonary Department 175 [facility], [address] [place] [address] Physician Pulmonary Disease 09/06/17 06/22/20 documented as of this encounter
--- OUTSIDE RECORDS SUMMARY | 2025-03-17 13:52 | XMS_ITS | Encounter Summary ---
Author Organization [facility] and [facility] Address [address] [place] [address] Care Team Providers Care Medical Sales Name Role Phone Caitlyn Bowie MD Primary Care Provider +1- [phone] Encounter Details Date Type Department Care Team (Late st Contact Info) Description 01/28/2019 Scanned Document [facility] Health Information Management [address] [place] [address] External, Provider Social History Tobacco Use [...] [facility] [address] [place] [address] Ronald Mills MD [address] [place] [address] [address] [place] [address] documented as of this encounter Visit Diagnoses Not on filedocumented in this encounter Additional Health Concerns Infection Onset Date Last Indicated Resolved Time COVID-19 03/05/2022 03/05/2022 03/15/2022 7:18 PM EDT Assessment Noted Time PHQ-9 Depression Total Score: 2 11/07/19 19 2:06 PM EDT documented as of this encounter Care Teams Medical Sales Relationship Specialty Start Date End Date Caitlyn Bowie MD [address] [facility] 1 [place] [address] PCP - General Internal Medicine 05/06/21 Henry Kelly MD Pulmonary Department 175 [facility], [address] [place] [address] Physician Pulmonary Disease 09/06/17 06/22/20 documented as of this encounter
--- OUTSIDE RECORDS SUMMARY | 2025-03-17 13:52 | XMS_ITS | Encounter Summary ---
Author Organization [facility] and [facility] Address 20 [place] [address] Care Team Providers Care Care Team Coordinator Scheduler Name Role Phone Caitlyn Bowie MD Primary Care Provider +1- [phone] Encounter Details Date Type Department Care Team (Late st Contact Info) Description 05/10/2022 Scanned Document Cardiovascular Medicine at [address] [place] [phone] Norma Renee MD [address] [place] [phone] Social History Tobacco Use Types Packs/Day Years [...] PM EDT Telemedicine Cancer Center at [address] [place] [address] Ronald Mills MD [address] [place] [address] [address] [place] [address] documented as of this encounter Visit Diagnoses Not on filedocumented in this encounter Additional Health Concerns Assessment Noted Time PHQ-9 Depression Total Score: 2 11/07/19 19 2:06 PM EDT documented as of this encounter Care Teams Care Team Coordinator Scheduler Relationship Specialty Start Date End Date Caitlyn Bowie MD [address] [address] PCP - General Internal Medicine 05/06/21 documented as of this encounter
--- OUTSIDE RECORDS SUMMARY | 2025-03-17 13:52 | XMS_ITS | Encounter Summary ---
Author Organization [facility] and [facility] Address [address] [place] [address] Care Team Providers Care Aeronautical Drafter Name Role Phone Caitlyn Bowie MD Primary Care Provider +1- [phone] Encounter Details Date Type Department Care Team (Late st Contact Info) Description 04/11/2019 Scanned Document [facility] Health Information Management [address] [place] [address] External, Provider Social History Tobacco Use Types [...] at [facility] 240 [facility] [address] [place] [address] Ronald Mills MD [address] [place] [address] [address] [place] [address] documented as of this encounter [...] as of this encounter Care Teams Aeronautical Drafter Relationship Specialty Start Date End Date Caitlyn Bowie MD 3400 [facility] 1 [place] [address] PCP - General Internal Medicine 05/06/21 Henry Kelly MD Pulmonary Department 175 [facility] [place] [facility], [address] [place] [address] Physician Pulmonary Disease 09/06/17 06/22/20 documented as of this encounter
--- OUTSIDE RECORDS SUMMARY | 2025-03-17 13:52 | XMS_ITS | Encounter Summary ---
Author Organization [facility] and [facility] Address [address] [place] [address] Care Team Providers Care Commercial Director Name Role Phone Caitlyn Bowie MD Primary Care Provider +1- [phone] Encounter Details Date Type Department Care Team (Late st Contact Info) Description 12/16/2015 Scanned Document [facility] Health Information Management [address] [place] [address] External, Provider Social History Tobacco Use Types [...] [facility] Building [address] [place], [place] [phone] Ronald Mills MD 240 [facility] [address] [place] [address] documented as of this encounter Procedures Procedure Name Priority Date/Time Associated Diagnosis Comments US RESULT SCAN Routine 12/16/2015 documented in this encounter Results * US Result Scan (12/16/2015) us Provider External IMG SCAN REPORTS Edited Result - Final [facility] [place], [place], [facility] documented in this encounter Visit Diagnoses Not on filedocumented in this encounter Additional Health Concerns Infection Onset Date Last Indicated Resolved Time COVID-19 03/05/2022 03/05/2022 03/15/2022 7:18 PM EDT documented as of this encounter Care Teams Commercial Director Relationship Specialty Start Date End Date Caitlyn Bowie MD 3400 [facility] Max 1 [place] [address] PCP - General Internal Medicine 05/06/21 Henry Kelly MD Pulmonary Department 175 [facility], [address] [place] [address] Physician Pulmonary Disease 09/06/17 06/22/20 documented as of this encounter
--- OUTSIDE RECORDS SUMMARY | 2025-03-17 13:52 | XMS_ITS | Encounter Summary ---
Author Organization [facility] and [facility] Address [address] [place] [address] Care Team Providers Care Healthcare Administrative Assistant Name Role Phone Caitlyn Bowie MD Primary Care Provider +1- [phone] Encounter Details Date Type Department Care Team (Late st Contact Info) Description 01/30/2019 Scanned Document [facility] Health Information Management [address] [place] [address] External, Provider Social History Tobacco Use Types [...] [facility] at [facility] 240 [facility] [address] [place] [address] Ronald Mills MD [address] [place] [address] [address]1 [place] [address] documented as of this encounter [...] as of this encounter Care Teams Healthcare Administrative Assistant Relationship Specialty Start Date End Date Caitlyn Bowie MD 3400 [facility] 1 [place] [address] PCP - General Internal Medicine 05/06/21 Henry Kelly MD Pulmonary Department 175 [facility], [address] [place] [address] Physician Pulmonary Disease 09/06/17 06/22/20 documented as of this encounter
--- OUTSIDE RECORDS SUMMARY | 2025-03-17 13:52 | XMS_ITS | Encounter Summary ---
Author Organization [facility] and [facility] Address [address] [place] [address] Care Team Providers Care Automotive Glass Technician Name Role Phone Caitlyn Bowie MD Primary Care Provider +1- [phone] Encounter Details Date Type Department Care Team (Late st Contact Info) Description 04/25/2022 Scanned Document INTERFACE DEFAULT [address] [place] [address] System, Provider Not In Social History Tobacco [...] [facility] [address] [place] [address] Ronald Mills MD [address] [place] [address] [address] [place] [address] documented as of this encounter Visit Diagnoses Not on filedocumented in this encounter Additional Health Concerns Assessment Noted Time PHQ-9 Depression Total Score: 2 11/07/19 19 2:06 PM EDT documented as of this encounter Care Teams Automotive Glass Technician Relationship Specialty Start Date End Date Caitlyn Bowie MD [address] [address] PCP - General Internal Medicine 05/06/21 documented as of this encounter
--- OUTSIDE RECORDS SUMMARY | 2025-03-17 13:52 | XMS_ITS | Encounter Summary ---
Author Organization [facility] and [facility] Address [address] [place] [address] Care Team Providers Care Group Billing Coordinator Name Role Phone Caitlyn Bowie MD Primary Care Provider +1- [phone] Encounter Details Date Type Department Care Team (Late st Contact Info) Description 04/13/2022 Scanned Document INTERFACE DEFAULT [address] [place] [address] System, Provider Not In Social History Tobacco [...] Center at [facility] 240 [facility] [address] [place], [place] [phone] Ronald Mills MD [address] [place] [address] [address] [place] [address] documented as of this encounter [...] as of this encounter Care Teams Group Billing Coordinator Relationship Specialty Start Date End Date Caitlyn Bowie MD [address] [address] PCP - General Internal Medicine 05/06/21 documented as of this encounter
--- OUTSIDE RECORDS SUMMARY | 2025-03-17 13:52 | XMS_ITS | Encounter Summary ---
Author Organization [facility] and [facility] Address [address] [place] [address] Care Team Providers Care Correctional Manager Name Role Phone Caitlyn Bowie MD Primary Care Provider +1- [phone] Encounter Details Date Type Department Care Team (Late Contact Info) Description 04/12/2022 Scanned Document [facility] Health Information Management [address] [place] [address] External, Provider Social History Tobacco Use Types [...] [facility] 240 [facility] Building [address] [place], [place] [phone] Ronald Mills MD [address] [place] [address] [address] [place] [address] documented as of this encounter [...] as of this encounter Care Teams Correctional Manager Relationship Specialty Start Date End Date Caitlyn Bowie MD [address] [address] PCP - General Internal Medicine 05/06/21 documented as of this encounter
--- OUTSIDE RECORDS SUMMARY | 2025-03-17 13:52 | XMS_ITS | Encounter Summary ---
Author Organization [facility] and [facility] Address [address] [place] [address] Care Team Providers Care Broth Setter Name Role Phone Caitlyn Bowie MD Primary Care Provider +1- [phone] Encounter Details Date Type Department Care Team (Late st Contact Info) Description 12/29/2021 Telephone [facility] at [address] - [address] [address] Ronald Mills MD [address] [place] [address] Social History Tobacco Use Types Packs/Day [...] not sure where the blood's coming from. [phone] documented in this encounter Plan of Treatment Upcoming Encounters Date Type Department Care Team (Late st Contact Info) Description 04/25/2025 4:00 PM EDT Telemedicine Cancer Center at [facility] 240 [facility] [address] [place] [address] Ronald Mills MD 240 [facility] A1 [place] [address] documented as of this encounter Visit Diagnoses Not on filedocumented in this encounter Additional Health Concerns Infection Onset Date Last Indicated Resolved Time COVID-19 03/05/2022 03/05/2022 03/15/2022 7:18 PM EDT Assessment Noted Time PHQ-9 Depression Total Score: 2 11/07/19 19 2:06 PM EDT documented as of this encounter Care Teams Broth Setter Relationship Specialty Start Date End Date Caitlyn Bowie MD [address] [address] PCP - General Internal Medicine 05/06/21 documented as of this encounter
--- OUTSIDE RECORDS SUMMARY | 2025-03-17 13:52 | XMS_ITS | Encounter Summary ---
Author Organization [facility] and [facility] Address [address] [place] [address] Care Team Providers Care Special Needs Teacher Name Role Phone Caitlyn Bowie MD Primary Care Provider +1- [phone] Encounter Details Date Type Department Care Team (Late st Contact Info) Description 01/17/2019 Scanned Document [facility] Health Information Management [address] [place] [address] External, Provider Social History Tobacco Use Types [...] [facility] 240 [facility] Building [address] [place] [address] Ronald Mills MD [address] [place] [address] [address] [place] [address] documented as of this encounter [...] as of this encounter Care Teams Special Needs Teacher Relationship Specialty Start Date End Date Caitlyn Bowie MD 3400 [facility] 1 [place] [address] PCP - General Internal Medicine 05/06/21 Henry Kelly MD Pulmonary Department 175 [facility], [address] [place] [address] Physician Pulmonary Disease 09/06/17 06/22/20 documented as of this encounter
--- OUTSIDE RECORDS SUMMARY | 2025-03-17 13:52 | XMS_ITS | Encounter Summary ---
Author Organization [facility] and [facility] Address [address] [place] [address] Care Team Providers Care Spectrograph Operator Name Role Phone Caitlyn Bowie MD Primary Care Provider +1- [phone] Encounter Details Date Type Department Care Team (Late st Contact Info) Description 04/16/2022 Scanned Document INTERFACE DEFAULT [address] [place] [address] System, Provider Not In Social History Tobacco [...] [facility] 240 [facility] Building [address] [place], [place] [phone] Ronald Mills MD [address] [place] [address] [address] [place] [address] documented as of this encounter [...] documented as of this encounter Care Teams Spectrograph Operator Relationship Specialty Start Date End Date Caitlyn Bowie MD [address] [address] PCP - General Internal Medicine 05/06/21 documented as of this encounter
--- OUTSIDE RECORDS SUMMARY | 2025-03-17 13:53 | XMS_ITS | Encounter Summary ---
Author Organization [facility] and [facility] Address [address] [place] [address] Care Team Providers Care Medication Coordinator Name Role Phone Caitlyn Bowie MD Primary Care Provider +1- [phone] Encounter Details Date Type Department Care Team (Late st Contact Info) Description 12/16/2016 Scanned Document [facility] Health Information Management [address] [place] [address] External, Provider Social History Tobacco Use Types [...] [facility] 240 [facility] Building [address] [place], [place] [phone] Ronald Mills MD 240 [facility] Max [address]1 [place] [address] documented as of this encounter [...] Bowie MD 3400 [facility] 1 [place] [address] PCP - General Internal Medicine 05/06/21 Herny Kelly MD Pulmonary Department 175 [facility], [address] [place] [address] Physician Pulmonary Disease 09/06/17 06/22/20 documented as of this encounter
--- OUTSIDE RECORDS SUMMARY | 2025-03-17 13:53 | XMS_ITS | Encounter Summary ---
Author Organization [facility] and [facility] Address [address] [place] [address] Care Team Providers Care Social Sciences Lecturer Name Role Phone Caitlyn Bowie MD Primary Care Provider +1- [phone] Encounter Details Date Type Department Care Team (Late st Contact Info) Description 07/27/2016 Scanned Document Thoracic Oncology Program at [address] [address] Suzy Kong MD [address] [place] [address] Social History Tobacco Use Types Packs/Day [...] PM EDT Telemedicine Cancer Center at [address] [place], [place] [phone] Ronald Mills MD 240 [facility] Max [address]1 [place] [address] documented as of this encounter Visit Diagnoses Not on filedocumented in this encounter Additional Health Concerns Infection Onset Date Last Indicated Resolved Time COVID-19 03/05/2022 03/05/2022 03/15/2022 7:18 PM EDT documented as of this encounter Care Teams Social Sciences Lecturer Relationship Specialty Start Date End Date Caitlyn Bowie MD 3400 [facility] Max 1 [place] [address] PCP - General Internal Medicine 05/06/21 Henry Kelly MD Pulmonary Department 175 [facility], [address] [place] [address] Physician Pulmonary Disease 09/06/17 06/22/20 documented as of this encounter
--- OUTSIDE RECORDS SUMMARY | 2025-03-17 13:53 | XMS_ITS | Encounter Summary ---
Author Organization [facility] Address [address] [place] [address] Care Team Providers Care Business Ethics Professor Name Role Phone Caitlyn Bowie MD Primary Care Provider +1- [phone] Encounter Details Date Type Department Care Team (Late st Contact Info) Description 06/17/2016 Scanned Document [facility] Health Information Management [address] [place] [address] External, Provider Social History Tobacco Use Types [...] Cancer Center at [facility] 240 [facility] Building [address] [place], [place] [phone] Ronald Mills MD 240 [facility] Max [address] [place] [address] documented as of this encounter Procedures Procedure Name Priority Date/Time Associated Diagnosis Comments XRAY RESULT SCAN Routine 06/17/2016 documented in this encounter Results * Xray Result Scan (06/17/2016) us Provider External IMG SCAN REPORTS Final Result [facility] [place], [place], [facility] documented in this encounter Visit Diagnoses Not on filedocumented in this encounter Additional Health Concerns Infection Onset Date Last Indicated Resolved Time COVID-19 03/05/2022 03/05/2022 03/15/2022 7:18 PM EDT documented as of this encounter Care Teams Business Ethics Professor Relationship Specialty Start Date End Date Caitlyn Bowie MD 3400 [facility] 1 [place] [address] PCP - General Internal Medicine 05/06/21 Henry Kelly MD Pulmonary Department [address] [place] [address], [address] [place] [address] Physician Pulmonary Disease 09/06/17 06/22/20 documented as of this encounter
--- OUTSIDE RECORDS SUMMARY | 2025-03-17 13:53 | XMS_ITS | Encounter Summary ---
Author Organization [facility] and [facility] Address [address] [place] [address] Care Team Providers Care Hand Painter Name Role Phone Caitlyn Bowie MD Primary Care Provider +1- [phone] Reason for Referral * Imaging (Routine) - Closed Specialty Diagnoses / Procedures Referred By Contac t Referred To Contact Procedures [place] Lung Ventilation Perfusion ([facility]) External, Provider Referral ID Status Reason Start Date Expiration Date Visits Re quested Visits Authorized [id number] Closed 08/22/2016 08/22/2017 4 4 Encounter Details Date Type Department Care Team (Late st Contact Info) Description 08/22/2016 Scanned Document Thoracic Oncology Program at [address] [address] External, Provider Social History Tobacco Use Types [...] PM EDT Telemedicine Cancer Center at [address] [place] [address] Ronald Mills MD [address] [place] [address] Rd [address] [place] [phone] documented as of this encounter Procedures Procedure Name Priority Date/Time Associated Diagnosis Comments XRAY RESULT SCAN Routine 07/27/2016 CT RESULT SCAN Routine 07/27/2016 CT RESULT SCAN Routine 07/27/2016 CARDIAC EKG RESULT SCAN Routine 07/27/2016 LAB SCAN Routine 07/27/2016 NM LUNG VENTILATION PERFUSIO N ([facility]) Routine 07/27/2016 documented in this encounter Results * Xray Result Scan (07/27/2016) us Provider External IMG SCAN REPORTS Final Result Performing Organization Address [facility] [[email or web address]] Co de Phone Number [facility] * CT Result Scan (07/27/2016) us Provider External IMG SCAN REPORTS Final Result Performing Organization Address [facility] Co de Phone Number [facility] * Cardiac EKG Result Scan (07/27/2016) us Provider External CV CARDIAC REPORT (CVR) Final Result Performing Organization Address [facility] Co de Phone Number [facility] * CT Result Scan (07/27/2016) us Provider External IMG SCAN REPORTS Final Result Performing Organization Address [facility] [[email or web address]] Co de Phone Number [facility] * Lab Scan (07/27/2016) Blood specimen (specimen) us Provider External LAB BLOOD ORDERABLES Final Res ult Performing Organization Address [facility] [[email or web address]] Co de Phone Number [facility] * NM Lung Ventilation Perfusion ([facility]) (07/27/2016) Anatomical Region Laterality Modality Chest, Lung Nuclear Medicine us Provider External IMG [place] ORDERABLES Final Result documented in this encounter Visit Diagnoses Not on filedocumented in this encounter Additional Health Concerns Infection Onset Date Last Indicated Resolved Time COVID-19 03/05/2022 03/05/2022 03/15/2022 7:18 PM EDT documented as of this encounter Care Teams Hand Painter Relationship Specialty Start Date End Date Caitlyn Bowie MD 3400 [facility] 1 [place] [address] PCP - General Internal Medicine 05/06/21 Henry Kelly MD Pulmonary Department 175 [facility], [address] [place] [address] Physician Pulmonary Disease 09/06/17 06/22/20 documented as of this encounter
--- OUTSIDE RECORDS SUMMARY | 2025-03-17 13:53 | XMS_ITS | Encounter Summary ---
Author Organization [facility] Address [address] [place] [address] Care Team Providers Care Grouter Helper Name Role Phone Caitlyn Bowie MD Primary Care Provider +1- [phone] Encounter Details Date Type Department Care Team (Late st Contact Info) Description 09/23/2024 Scanned Document INTERFACE DEFAULT [address] [place] [address] System, Provider Not In Social History Tobacco [...] Center at [facility] 240 [facility] Building [address] [place], [place] [address] Ronald Mills MD [address] [place] [address] [address] [place] [address] documented as of this encounter [...] documented as of this encounter Care Teams Grouter Helper Relationship Specialty Start Date End Date Caitlyn Bowie MD [address] [address] PCP - General Internal Medicine 05/06/21 documented as of this encounter
--- OUTSIDE RECORDS SUMMARY | 2025-03-17 13:53 | XMS_ITS | Encounter Summary ---
Author Organization [facility] and [facility] Address [address] [place] [phone] Care Team Providers Care Social Work Specialist Name Role Phone Caitlyn Bowie MD Primary Care Provider +1- [phone] Encounter Details Date Type Department Care Team (Late st Contact Info) Description 08/08/2024 Scanned Document INTERFACE DEFAULT [address] [place] [address] System, Provider Not In Social History Tobacco [...] Center at [facility] 240 [facility] Building [address] [place], [place] [address] Ronald Mills MD [address] [place] [address] [address]1 [place] [address] documented as of this encounter [...] End Date Caitlyn Bowie MD [address] [address] PCP - General Internal Medicine 05/06/21 documented as of this encounter
--- OUTSIDE RECORDS SUMMARY | 2025-03-17 13:53 | XMS_ITS | Encounter Summary ---
Author Organization [facility] and [facility] Address [address] [place] [address] Care Team Providers Care Dry Wall Nailer Name Role Phone Caitlyn Bowie MD Primary Care Provider +1- [phone] Encounter Details Date Type Department Care Team (Late st Contact Info) Description 12/16/2016 Scanned Document [facility] Health Information Management [address] [place] [address] External, Provider Social History Tobacco Use Types [...] [facility] [address] [facility] [address] [place], [place] [phone] Ronald Mills MD 240 [facility] [address] [place] [address] documented as of this encounter [...] as of this encounter Care Teams Dry Wall Nailer Relationship Specialty Start Date End Date Caitlyn Bowie MD 3400 [facility] 1 [place] [address] PCP - General Internal Medicine 05/06/21 Henry Kelly MD Pulmonary Department 175 [facility], [address] [place] [address] Physician Pulmonary Disease 09/06/17 06/22/20 documented as of this encounter
--- OUTSIDE RECORDS SUMMARY | 2025-03-17 13:53 | XMS_ITS | Encounter Summary ---
Author Organization [facility] and [facility] Address [address] [place] [address] Care Team Providers Care Golf Sales Associate Name Role Phone Caitlyn Bowie MD Primary Care Provider +1- [phone] Encounter Details Date Type Department Care Team (Late st Contact Info) Description 07/27/2016 Scanned Document Thoracic Oncology Program at [address] [address] Suzy Kong MD [address] [place] [address] Social History Tobacco Use Types Packs/Day [...] PM EDT [facility] at [address] [place], [place] [phone] Ronald Mills MD 240 [facility] [address] [place] [address] documented as of this encounter Visit Diagnoses Not on filedocumented in this encounter Additional Health Concerns Infection Onset Date Last Indicated Resolved Time COVID-19 03/05/2022 03/05/2022 03/15/2022 7:18 PM EDT documented as of this encounter Care Teams Golf Sales Associate Relationship Specialty Start Date End Date Caitlyn Bowie MD 3400 [facility] Max 1 [place] [address] PCP - General Internal Medicine 05/06/21 Henry Kelly MD Pulmonary Department 175 [facility], [address] [place] [address] Physician Pulmonary Disease 09/06/17 06/22/20 documented as of this encounter
--- OUTSIDE RECORDS SUMMARY | 2025-03-17 13:53 | XMS_ITS | Encounter Summary ---
Author Organization [facility] Address [address] [place] [address] Care Team Providers Care Solar Maintenance Technician Name Role Phone Caitlyn Bowie MD Primary Care Provider +1- [phone] Encounter Details Date Type Department Care Team (Late st Contact Info) Description 01/13/2019 Scanned Document [facility] Health Information Management [address] [place] [address] External, Provider Social History Tobacco Use Types [...] at [facility] 240 [facility] [address] [place] [address] Ronald Mills MD [address] [place] [address] [address] [place] [address] documented as of this encounter [...] as of this encounter Care Teams Solar Maintenance Technician Relationship Specialty Start Date End Date Caitlyn Bowie MD 3400 [facility] 1 [place] [address] PCP - General Internal Medicine 05/06/21 Henry Kelly MD Pulmonary Department 175 [facility], [address] [place] [address] Physician Pulmonary Disease 09/06/17 06/22/20 documented as of this encounter
--- OUTSIDE RECORDS SUMMARY | 2025-03-17 13:53 | XMS_ITS | Encounter Summary ---
Author Organization [facility] Address [address] [place] [address] Care Team Providers Care Eeg Technologist Name Role Phone Caitlyn Bowie MD Primary Care Provider +1- [phone] Encounter Details Date Type Department Care Team (Late st Contact Info) Description 04/19/2024 Scanned Document INTERFACE DEFAULT [address] [place] [address] System, Provider Not In Social History Tobacco [...] [facility] 240 [facility] Building [address] [place], [place] [phone] Ronald Mills MD [address] [place] [address] [address] [place] [address] documented as of this encounter [...] as of this encounter Care Teams Eeg Technologist Relationship Specialty Start Date End Date Caitlyn Bowie MD [address] [address] PCP - General Internal Medicine 05/06/21 documented as of this encounter
--- OUTSIDE RECORDS SUMMARY | 2025-03-17 13:53 | XMS_ITS | Encounter Summary ---
Author Organization [facility] and [facility] Address [address] [place] [address] Care Team Providers Care Alum Plant Supervisor Name Role Phone Caitlyn Bowie MD Primary Care Provider +1- [phone] Encounter Details Date Type Department Care Team (Late st Contact Info) Description 01/09/2019 Scanned Document [facility] Health Information Management [address] [place] [address] External, Provider Social History Tobacco Use Types [...] [facility] [address] [facility] [address] [place] [address] Ronald Mills MD [address] [place] [address] [address] [place] [address] documented as of this encounter [...] documented as of this encounter Care Teams Alum Plant Supervisor Relationship Specialty Start Date End Date Caitlyn Bowie MD 3400 [facility] 1 [place] [address] PCP - General Internal Medicine 05/06/21 Henry Kelly MD Pulmonary Department 175 [facility], [address] [place] [address] Physician Pulmonary Disease 09/06/17 06/22/20 documented as of this encounter
--- OUTSIDE RECORDS SUMMARY | 2025-03-17 13:53 | XMS_ITS | Clinical Summary ---
Author Organization [facility] Address [address] [place] [address] Care Team Providers Care Assembly Department Supervisor Name Role Phone Caitlyn Bowie Primary Care Provider [phone] Allergies Active Allergy Reactions Criticality Noted Date [...] Throat tightness Throat tightness Throat tightness Ipratropium Watson Unknown Medium 12/18/2021 Isosorbide Mononitrate 11/23/2020 Other [...] topic Insurance MEDICARE PART A & B [facility] Care Teams Assembly Department Supervisor Relationship Specialty Start Date End Date Caitlyn Bowie [address] [place] [address] PCP - General Internal Medicine 07/18/22
--- OUTSIDE RECORDS SUMMARY | 2025-03-17 13:53 | XMS_ITS | Encounter Summary ---
Author Organization [facility] Address [address] [place] [address] Care Team Providers Care Pecan Mallow Dipper Name Role Phone Caitlyn Bowie MD Primary Care Provider +1- [phone] Encounter Details Date Type Department Care Team (Late st Contact Info) Description 01/02/2019 Scanned Document [facility] Health Information Management [address] [place] [address] External, Provider Social History Tobacco Use Types [...] [facility] [address] [facility] [address] [place] [address] Ronald Mills MD [address] [place] [address] [address] [place] [address] documented as of this encounter [...] documented as of this encounter Care Teams Pecan Mallow Dipper Relationship Specialty Start Date End Date Caitlyn Bowie MD 3400 [facility] 1 [place] [address] PCP - General Internal Medicine 05/06/21 Henry Kelly MD Pulmonary Department 175 [facility], [address] [place] [address] Physician Pulmonary Disease 09/06/17 06/22/20 documented as of this encounter
--- OUTSIDE RECORDS SUMMARY | 2025-03-17 13:53 | XMS_ITS | Encounter Summary ---
Author Organization [facility] Address [address] [place] [address] Care Team Providers Care Software Performance Engineer Name Role Phone Caitlyn Bowie MD Primary Care Provider +1- [phone] Encounter Details Date Type Department Care Team (Late st Contact Info) Description 04/23/2024 Scanned Document INTERFACE DEFAULT [address] [place] [address] System, Provider Not In Social History Tobacco [...] at [facility] 240 [facility] Building [address] [place], [place] [phone] Ronald Mills MD [address] [place] [address] [address] [place] [address] documented as of this encounter [...] as of this encounter Care Teams Software Performance Engineer Relationship Specialty Start Date End Date Caitlyn Bowie MD [address] [address] PCP - General Internal Medicine 05/06/21 documented as of this encounter
--- OUTSIDE RECORDS SUMMARY | 2025-03-17 13:53 | XMS_ITS | Encounter Summary ---
Author Organization [facility] Address [address] [place] [address] Care Team Providers Care Middle School Director Name Role Phone Caitlyn Bowie MD Primary Care Provider +1- [phone] Encounter Details Date Type Department Care Team (Late st Contact Info) Description 12/14/2016 Scanned Document [facility] Health Information Management [address] [place] [address] External, Provider Social History Tobacco Use Types [...] Center at [facility] 240 [facility] [address] [place], [place] [phone] Ronald Mills MD 240 [facility] Max [address] [place] [address] documented as of this [...] [facility] 1 [place] [address] PCP - General Internal Medicine 05/06/21 Henry Kelly MD Pulmonary Department 175 [facility], [address] [place] [address] Physician Pulmonary Disease 09/06/17 06/22/20 documented as of this encounter
--- OUTSIDE RECORDS SUMMARY | 2025-03-17 13:53 | XMS_ITS | Encounter Summary ---
Author Organization [facility] Address [address] [place] [address] Care Team Providers Care Cotton Stomper Name Role Phone Caitlyn Bowie MD Primary Care Provider +1- [phone] Encounter Details Date Type Department Care Team (Late st Contact Info) Description 02/08/2016 Scanned Document [facility] Health Information Management [address] [place] [address] External, Provider Social History Tobacco Use Types [...] [facility] at [facility] 240 [facility] [address] [place], [place] [phone] Ronald Mills MD 240 [facility] A1 [place] [address] documented as of this encounter Visit Diagnoses Not on filedocumented in this encounter Additional Health Concerns Infection Onset Date Last Indicated Resolved Time COVID-19 03/05/2022 03/05/2022 03/15/2022 7:18 PM EDT documented as of this encounter Care Teams Cotton Stomper Relationship Specialty Start Date End Date Caitlyn Bowie MD 3400 [facility] 1 [place] [address] PCP - General Internal Medicine 05/06/21 Henry Kelly MD Pulmonary Department 175 [facility], [address] [place] [address] Physician Pulmonary Disease 09/06/17 06/22/20 documented as of this encounter
--- OUTSIDE RECORDS SUMMARY | 2025-03-17 13:53 | XMS_ITS | Encounter Summary ---
Author Organization [facility] Address [address] [place] [address] Care Team Providers Care Crab Catcher Name Role Phone Caitlyn Bowie MD Primary Care Provider +1- [phone] Encounter Details Date Type Department Care Team (Late st Contact Info) Description 06/17/2016 Scanned Document [facility] Health Information Management [address] [place] [address] External, Provider Social History Tobacco Use Types [...] Cancer Center at [facility] 240 [facility] Building [address] [place], [place] [phone] Ronald Mills MD 240 [facility] A1 [place] [address] documented as of this encounter Visit Diagnoses Not on filedocumented in this encounter Additional Health Concerns Infection Onset Date Last Indicated Resolved Time COVID-19 03/05/2022 03/05/2022 03/15/2022 7:18 PM EDT documented as of this encounter Care Teams Crab Catcher Relationship Specialty Start Date End Date Caitlyn Bowie MD 3400 [facility] [address] [place] [address] PCP - General Internal Medicine 05/06/21 Henry Kelly MD Pulmonary Department 175 [facility], [address] [place] [address] Physician Pulmonary Disease 09/06/17 06/22/20 documented as of this encounter
--- OUTSIDE RECORDS SUMMARY | 2025-03-17 13:53 | XMS_ITS | Encounter Summary ---
Author Organization [facility] Address [address] [place] [address] Care Team Providers Care Signal And Communications Maintainer Name Role Phone Caitlyn Bowie MD Primary Care Provider +1- [phone] Encounter Details Date Type Department Care Team (Late st Contact Info) Description 12/27/2018 Scanned Document [facility] Health Information Management [address] [place] [address] External, Provider Social History Tobacco Use Types [...] [facility] 240 [facility] Building [address] [place] [address] Ronald Mills MD [address] [place] [address] [address] [place] [address] documented as of this encounter [...] documented as of this encounter Care Teams Signal And Communications Maintainer Relationship Specialty Start Date End Date Caitlyn Bowie MD 3400 [facility] 1 [place] [address] PCP - General Internal Medicine 05/06/21 Henry Kelly MD Pulmonary Department 175 [facility], [address] [place] [address] Physician Pulmonary Disease 09/06/17 06/22/20 documented as of this encounter
--- OUTSIDE RECORDS SUMMARY | 2025-03-17 13:53 | XMS_ITS | Clinical Summary ---
Author Organization [facility], Address [address] [place] [address] [place] [address] Phone Care Team Providers Care Coal Hauler Name Role Phone Caitlyn Boiwe MD Primary Care Provider +1- [phone] Allergies Active Allergy Reactions Criticality Noted Date [...] Encounters Date Type Department Care Team Description 03/17/2025 Documentation Only [facility] [address] [place] [address] Marina Abdi 03/17/2025 Office Communication [facility] [address] [place] [address] Marina Abdi 03/17/2025 Orders Only [facility] [address] [place] [address] Marina Abdi Smells of urine (Primary Dx); Chronic kidney disease, stage 2 (mild); Other specified urinary incontinence from Last 3 Months Immunizations Immunization Administration [...] Visit [facility] [address] [place] [address] Rubén Ashraf MD [address] [facility] [address] [place] [address] Health Maintenance Due Date Last Done Comments Influenza Vaccine (#1) 2025 0, 04/22/2019, 04/18/2016 Pneumococcal Vaccine: 50+ Years Completed 08/31/2021, 03/25/2016, 09/17/2015, Additional history exists Hepatitis B Vaccine Aged Out No longe r eligible based on patient's age to complete this topic Insurance Medicare [facility] Care Teams Coal Hauler Relationship Specialty Start Date End Date Caitlyn Bowie MD [address] [place] PCP - General Internal Medicine 09/24/24
--- OUTSIDE RECORDS SUMMARY | 2025-03-17 13:53 | XMS_ITS | Clinical Summary ---
Author Organization [facility] Address [address] [place] [address] Phone Care Team Providers Care Zookeeper Name Role Phone Caitlyn Bowie MD Primary [...] (12/25/2021 4:22 PM EDT): Followed closely by overage shortage and damage clerk-Dr. Ronald Mills at [facility] hematology- advised to continue Coumadin [...] (09/09/2021 10:42 PM EST): Followed closely by overage shortage and damage clerk-Dr. Ronald Mills at [facility] hematology- last seen on 08/05/2021 [...] anticoagulation clinic to keep INR at 1.5-2.0. prison current use of systemic steroids 09/09 Assessment & Plan (12/10/2021 10:38 AM EDT): Carefully continue alternating low dosing as prescribed by her prop and scenery maker and consider gentle taper when ready. Daily [...] alternating low dosing as prescribed by her prop and scenery maker and consider gentle taper when ready. Daily [...] AM EDT Office Visit [facility] [address] [place] [address] Anna Ellis MD Acquired hypothyroidism (Primary Dx); Hyperparathyroidism; Age-related osteoporosis without current pathological fracture; Adrenal insufficiency 01/12/2025 Refill [facility] [address] [place] [address] Anna Ellis MD Medication Refill from Last [...] 11:40 AM EST Office Visit [facility] [address] [place] [address] [place], [place] [phone] Anna Ellis MD [address] [place] [address] Health Maintenance Due Date Last Done Comments POTASSIUM LEVEL 1943 DEPRESSION SCREENING 1955 ZOSTER VACCINES (1 of 2) 1993 OSTEOPOROSIS SCREENING INITIAL (ONE-TIME) 2008 LIPID PANEL 03/18/2017 03/18/2016 RSV VACCINE (1 - 1-dose 75+ series) 2018 INFLUENZA VACCINE (#1) 2025 , 05/15/2021, 04/27/2020, Additional history exists COVID-19 VACCINE ( season) 2025 09/03/2020, 08/06/2020 TSH LEVEL 04/23/2025 04/23/2024, 09/11/2023 [...] with reflex (04/23/2024 3:40 PM EDT) Blood us Anna Ellis MD LAB BLOOD ORDERABLES F inal Result [facility] [address] [place] [address] from Last 3 Months or Most Recently Relevant to Health Maintenance Insurance MEDICARE PART A & B [facility] MEDEX [facility] Address: [address] [place] [id number] HEALTH SAFETY NET FULL [facility] MEDICARE PART A & B [facility] MEDEX SUPPLEMENT [employer] SAFETY NET FULL MEDICARE PART A & B [facility] MEDEX SUPPLEMENT [facility] SAFETY NET FULL [facility] MEDICARE PART A & B Member Subscriber Plan / Payer (Ef fective 1999-Present) Name:Jovana Malik Member ID:[id number] Relation to Subscriber:Self Name:Jovana Malik Subscriber ID:[id number] Payer ID:[id number] Group ID:Not on file Type:Medicare Address: [facility] [address] [place] [address] [facility] MEDEX SUPPLEMENT HEALTH SAFETY NET FULL [facility] MEDICARE PART A & B [facility] MEDEX SUPPLEMENT [facility] MEDICARE PART A & B [facility] MEDEX SUPPLEMENT [facility] MEDICARE PART A & B [facility] MEDEX SUPPLEMENT [facility] NET [facility]ULL [facility] MEDICARE PART A & B [facility] MEDEX SUPPLEMENT [facility] NET [facility]ULL [facility] MEDICARE PART A & B [facility] MEDEX SUPPLEMENT HEALTH SAFETY NET FULL [facility] Care Teams Zookeeper Relationship Specialty Start Date End Date Caitlyn Bowie MD 3400 [place] [address] PCP - General Internal Medicine 09/09/21 Additional Source Comments The information contained in this document represents components of the legal health record. It is not the complete legal health record.[facility]
--- OUTSIDE RECORDS SUMMARY | 2025-03-17 13:53 | XMS_ITS | Encounter Summary ---
Author Organization [facility] Address [address] [place] [address] Care Team Providers Care Radiology Supervisor Name Role Phone Caitlyn Bowie MD Primary Care Provider +1- [phone] Encounter Details Date Type Department Care Team (Late st Contact Info) Description 10/10/2016 Scanned Document [facility] Health Information Management [address] [place] [address] External, Provider Social History Tobacco Use Types [...] [facility] Building [address] [place], [place] [phone] Ronald Mills MD 240 [facility] A1 [place] [address] documented as of this encounter Visit Diagnoses Not on filedocumented in this encounter Additional Health Concerns Infection Onset Date Last Indicated Resolved Time COVID-19 03/05/2022 03/05/2022 03/15/2022 7:18 PM EDT documented as of this encounter Care Teams Radiology Supervisor Relationship Specialty Start Date End Date Caitlyn Bowie MD 3400 [facility] 1 [place] [address] PCP - General Internal Medicine 05/06/21 Henry Kelly MD Pulmonary Department 175 [facility], [address] [place] [address] Physician Pulmonary Disease 09/06/17 06/22/20 documented as of this encounter
--- OUTSIDE RECORDS SUMMARY | 2025-03-17 13:53 | XMS_ITS | Encounter Summary ---
Author Organization [facility] Address [address] [place] [address] Care Team Providers Care Aquatic Life Laborer Name Role Phone Caitlyn Bowie MD Primary Care Provider +1- [phone] Encounter Details Date Type Department Care Team (Late st Contact Info) Description 10/23/2024 Scanned Document INTERFACE DEFAULT [address] [place] [address] System, Provider Not In Social History Tobacco [...] [facility] at [facility] [address] [facility] Building [address] [place], [place] [phone] Ronald Mills MD [address] [place] [address] [address] [place] [address] documented as of this encounter [...] documented as of this encounter Care Teams Aquatic Life Laborer Relationship Specialty Start Date End Date Caitlyn Bowie MD [address] [address] PCP - General Internal Medicine 05/06/21 documented as of this encounter
--- OUTSIDE RECORDS SUMMARY | 2025-03-17 13:53 | XMS_ITS | Encounter Summary ---
Author Organization [facility] Address [address] [place] [address] Care Team Providers Care Application Technician Name Role Phone Caitlyn Bowie MD Primary Care Provider +1- [phone] Encounter Details Date Type Department Care Team (Late st Contact Info) Description 12/28/2018 Scanned Document [facility] Health Information Management [address] [place] [address] External, Provider Social History Tobacco Use Types [...] [facility] Building [address] [place] [address] Ronald Mills MD [address] [place] [address] [address] [place] [address] documented as of this encounter [...] as of this encounter Care Teams Application Technician Relationship Specialty Start Date End Date Caitlyn Bowie MD 3400 [facility] Max 1 [place] [address] PCP - General Internal Medicine 05/06/21 Henry Kelly MD Pulmonary Department 175 [facility], [address] [place] [address] Physician Pulmonary Disease 09/06/17 06/22/20 documented as of this encounter
--- OUTSIDE RECORDS SUMMARY | 2025-03-17 13:53 | XMS_ITS | Encounter Summary ---
Author Organization [facility] and [facility] Address [address] [place] [phone] Care Team Providers Care Robotics Software Engineer Name Role Phone Caitlyn Bowie MD Primary Care Provider +1- [phone] Encounter Details Date Type Department Care Team (Late st Contact Info) Description 04/04/2016 Scanned Document [facility] Health Information Management [address] [place] [address] External, Provider Social History Tobacco Use Types [...] [facility] [address] [facility] [address] [place], [place] [id number] Ronald Mills MD 240 [facility] [address] [place] [address] documented as of this encounter Procedures Procedure Name Priority Date/Time Associated Diagnosis Comments LAB SCAN Routine 04/04/2016 documented in this encounter Results * Lab Scan (04/04/2016) Blood specimen (specimen) us Provider External LAB BLOOD ORDERABLES Final Res ult [facility] documented in this encounter Visit Diagnoses Not on filedocumented in this encounter Additional Health Concerns Infection Onset Date Last Indicated Resolved Time COVID-19 03/05/2022 03/05/2022 03/15/2022 7:18 PM EDT documented as of this encounter Care Teams Robotics Software Engineer Relationship Specialty Start Date End Date Caitlyn Bowie MD 34[address] [facility] 1 [place] [address] PCP - General Internal Medicine 05/06/21 Henry Kelly MD Pulmonary Department 175 [facility], [address] [place] [address] Physician Pulmonary Disease 09/06/17 06/22/20 documented as of this encounter
--- OUTSIDE RECORDS SUMMARY | 2025-03-17 13:53 | XMS_ITS | Encounter Summary ---
Author Organization [facility] and [facility] Address [address] [place] [address] Care Team Providers Care Log Deckman Name Role Phone Caitlyn Bowie MD Primary Care Provider +1- [phone] Encounter Details Date Type Department Care Team (Late st Contact Info) Description 07/08/[address] [facility] Health Information Management [address] [place] [address] External, Provider Social History Tobacco Use Types [...] [facility] [address] [facility] [address] [place], [place] [id number] Ronald Mills MD 240 [facility] [address] [place] [address] documented as of this encounter Procedures Procedure Name Priority Date/Time Associated Diagnosis Comments LAB SCAN Routine 07/08/2016 documented in this encounter Results * Lab Scan (07/08/2016) Blood specimen (specimen) us Provider External LAB BLOOD ORDERABLES Final Res ult [facility] documented in this encounter Visit Diagnoses Not on filedocumented in this encounter Additional Health Concerns Infection Onset Date Last Indicated Resolved Time COVID-19 03/05/2022 03/05/2022 03/15/2022 7:18 PM EDT documented as of this encounter Care Teams Log Deckman Relationship Specialty Start Date End Date Caitlyn Bowie MD [address] [facility] 1 [place] [address] PCP - General Internal Medicine 05/06/21 Henry Kelly MD Pulmonary Department 175 [facility], [address] [place] [address] Physician Pulmonary Disease 09/06/17 06/22/20 documented as of this encounter
--- OUTSIDE RECORDS SUMMARY | 2025-03-17 13:53 | XMS_ITS | Encounter Summary ---
Author Organization [facility] and [facility] Address [address] [place] [phone] Care Team Providers Care Lap Winding Machine Operator Name Role Phone Caitlyn Bowie MD Primary Care Provider +1- [phone] Encounter Details Date Type Department Care Team (Late st Contact Info) Description 12/14/2016 Scanned Document [facility] Health Information Management [address] [place] [phone] External, Provider Social History Tobacco Use Types [...] [facility] [address] [facility] [address] [place], [place] [phone] Ronald Mills MD 240 [facility] [address] [place] [address] documented as of this encounter Visit Diagnoses Not on filedocumented in this encounter Additional Health Concerns Infection Onset Date Last Indicated Resolved Time COVID-19 03/05/2022 03/05/2022 03/15/2022 7:18 PM EDT documented as of this encounter Care Teams Lap Winding Machine Operator Relationship Specialty Start Date End Date Caitlyn Bowie MD 34[address] [facility] 1 [place] [address] PCP - General Internal Medicine 05/06/21 Henry Kelly MD Pulmonary Department 175 [facility] [place] [address] Physician Pulmonary Disease 09/06/17 06/22/20 documented as of this encounter
--- OUTSIDE RECORDS SUMMARY | 2025-03-17 13:53 | XMS_ITS | Encounter Summary ---
Author Organization [facility] and [facility] Address [address] [place] [phone] Care Team Providers Care Fittings Tightener Name Role Phone Caitlyn Bowie MD Primary Care Provider +1- [phone] Encounter Details Date Type Department Care Team (Late st Contact Info) Description 09/09/2024 Scanned Document INTERFACE DEFAULT [address] [place] [address] System, Provider Not In Social History Tobacco [...] [facility] [address] [facility] Building [address] [place], [place] [id number] Ronald Mills MD [address] [place] [address] [address] [place] [address] documented as of this [...] documented as of this encounter Care Teams Fittings Tightener Relationship Specialty Start Date End Date Caitlyn Bowie MD [address] [address] PCP - General Internal Medicine 05/06/21 documented as of this encounter
--- OUTSIDE RECORDS SUMMARY | 2025-03-17 13:53 | XMS_ITS | Encounter Summary ---
Author Organization [facility] and [facility] Address [address] [place] [phone] Care Team Providers Care Spring Repairer Helper Hand Name Role Phone Caitlyn Bowie MD Primary Care Provider +1- [phone] Encounter Details Date Type Department Care Team (Late st Contact Info) Description 01/08/2019 Scanned Document [facility] Health Information Management [address] [place] [address] External, Provider Social History Tobacco Use Types [...] [facility] 240 [facility] Building [address] [place] [address] Ronald Mills MD [address] [place] [address] [address] [place] [address] documented as of this [...] as of this encounter Care Teams Spring Repairer Helper Hand Relationship Specialty Start Date End Date Caitlyn Bowie MD [address] [facility] 1 [place] [address] PCP - General Internal Medicine 05/06/21 Henry Kelly MD Pulmonary Department 175 [facility], [address] [place] [address] Physician Pulmonary Disease 09/06/17 06/22/20 documented as of this encounter
--- OUTSIDE RECORDS SUMMARY | 2025-03-17 13:53 | XMS_ITS | Encounter Summary ---
Author Organization [facility] Address [address] [place] [address] Phone Care Team Providers Care Forensics Team Director Name Role Phone Caitlyn Bowie MD Primary Care Provider +1- [phone] Encounter Details Date Type Department Care Team (Late st Contact Info) Description 10/01/2024 Documentation Only [facility] [address] [place] [address] Ron Taylor [place] [address] [place] [address] Social History Tobacco Use Types [...] [facility] [address] [place] [address] Rubén Ashraf MD [address] [place] [address] [place] [address] documented as of this encounter Visit Diagnoses Not on filedocumented in this encounter Care Teams Forensics Team Director Relationship Specialty Start Date End Date Caitlyn Bowie MD [address] [place], [place] PCP - General Internal Medicine 09/24/24 documented as of this encounter
--- OUTSIDE RECORDS SUMMARY | 2025-03-17 13:53 | XMS_ITS | Encounter Summary ---
Author Organization [facility] and [facility] Address [address] [place] [phone] Care Team Providers Care Technical Support Agent Name Role Phone Caitlyn Bowie MD Primary Care Provider +1- [phone] Encounter Details Date Type Department Care Team (Late st Contact Info) Description 04/08/2024 Scanned Document INTERFACE DEFAULT [address] [place] [address] System, Provider Not In Social History Tobacco [...] [facility] [address] [facility] [address] [place], [place] [phone] Ronald Mills MD [address] [place] [address] [address] [place] [address] documented as of this encounter [...] of this encounter Care Teams Technical Support Agent Relationship Specialty Start Date End Date Caitlyn Bowie MD [address] [address] PCP - General Internal Medicine 05/06/21 documented as of this encounter
--- OUTSIDE RECORDS SUMMARY | 2025-03-17 13:53 | XMS_ITS | Encounter Summary ---
Author Organization [facility] and [facility] Address [address] [place] [phone] Care Team Providers Care Resistor Coater Name Role Phone Caitlyn Bowie MD Primary Care Provider +1- [phone] Encounter Details Date Type Department Care Team (Late st Contact Info) Description 06/17/2016 Scanned Document [facility] Health Information Management [address] [place] [address] External, Provider Social History Tobacco Use Types [...] [facility] 240 [facility] Building [address] [place], [place] [phone] Ronald Mills MD 240 [facility] A1 [place] [address] documented as of this encounter Visit Diagnoses Not on filedocumented in this encounter Additional Health Concerns Infection Onset Date Last Indicated Resolved Time COVID-19 03/05/2022 03/05/2022 03/15/2022 7:18 PM EDT documented as of this encounter Care Teams Resistor Coater Relationship Specialty Start Date End Date Caitlyn Bowie MD 3400 [facility] 1 [place] [address] PCP - General Internal Medicine 05/06/21 Henry Kelly MD Pulmonary Department 175 [facility], [address] [place] [address] Physician Pulmonary Disease 09/06/17 06/22/20 documented as of this encounter
--- OUTSIDE RECORDS SUMMARY | 2025-03-17 13:53 | XMS_ITS | Encounter Summary ---
Author Organization [facility] and [facility] Address [address] [place] [phone] Care Team Providers Care Picc Nurse Name Role Phone Caitlyn Bowie MD Primary Care Provider +1- [phone] Encounter Details Date Type Department Care Team (Late st Contact Info) Description 09/15/2024 Scanned Document INTERFACE DEFAULT [address] [place] [address] System, Provider Not In Social History Tobacco [...] [facility] [address] [facility] [address] [place], [place] [phone] Ronald Mills MD [address] [place] [address] [address] [place] [address] documented as of this encounter [...] documented as of this encounter Care Teams Picc Nurse Relationship Specialty Start Date End Date Caitlyn Bowie MD [address] [address] PCP - General Internal Medicine 05/06/21 documented as of this encounter
--- OUTSIDE RECORDS SUMMARY | 2025-03-17 13:53 | XMS_ITS | Encounter Summary ---
Author Organization [facility] Address [address] [place] [address] Care Team Providers Care Physician/Allergy/Immunology Name Role Phone Caitlyn Bowie MD Primary Care Provider +1- [phone] Encounter Details Date Type Department Care Team (Late st Contact Info) Description 07/27/2016 Scanned Document [facility] at [address] [address] Suzy Kong MD [address] [place] [phone] Social History Tobacco Use Types Packs/Day [...] PM EDT Telemedicine [facility] at [address] [place], [place] [phone] Ronald Mills MD 240 [facility] [address] [place] [address] documented as of this encounter Visit Diagnoses Not on filedocumented in this encounter Additional Health Concerns Infection Onset Date Last Indicated Resolved Time COVID-19 03/05/2022 03/05/2022 03/15/2022 7:18 PM EDT documented as of this encounter Care Teams Physician/Allergy/Immunology Relationship Specialty Start Date End Date Caitlyn Bowie MD 34[address] [facility] Max 1 [place] [address] PCP - General Internal Medicine 05/06/21 Henry Kelly MD Pulmonary Department 175 [facility], [address] [place] [address] Physician Pulmonary Disease 09/06/17 06/22/20 documented as of this encounter
== END 2025-03-17 11:10 | disposition home or self-care (01) ==
LOC: HO.LAB 11:09
PROVIDERS: PCP Internal Medicine; Visit Provider Internal Medicine Nephrology
DX: N18.2 Chronic kidney disease, stage 2 (mild) (principal); N39.498 Other specified urinary incontinence; R82.998 Other abnormal findings in urine
CPT/HCPCS: 81001; 87086

== ENCOUNTER 2025-03-24 11:16 | Outpatient (AMB) | payer MEDICARE, SELFPAY ==
--- OUTSIDE RECORDS SUMMARY | 2025-03-20 11:40 | XMS_ITS | Encounter Summary ---
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 Blurry vision Ayanna Jaffe MD [address] [place] [address] Phone: tel: fax: Remberto Cruz MD [address] [place] [address] Referral ID Status Reason Start Date Expiration Date Visits Requested Visits Authorized [id number] Authorized Specialty Services Required 03/20/2025 03/20/2026 1 1 Encounter Details Date Type Department Care Team (Late st Contact Info) Description 03/20/2025 11:40 AM EDT Office Visit [facility] [address] [place] [address] Ayanna Jaffe MD [address] [place] [phone] Optic neuritis (Primary Dx); White matter lesion of central nervous system; Blurry vision Social History Tobacco Use Types Packs/Day Years [...] Sign Reading Time Taken Comments Blood Pressure 117/68 03/20/2025 11:38 AM EDT Pulse 76 03/20/2025 11:38 AM EDT Temperature - - Respiratory Rate - - Oxygen Saturation 99% 03/20/2025 11:38 AM EDT Inhaled Oxygen Concentration - - Weight 57.6 kg (127 lb) 03/20/2025 11:38 AM EDT Height 157.5 cm (5' 2 ) 03/20/2025 11:38 AM EDT Body Mass Index 23.23 03/20/2025 11:38 AM EDT documented in this encounter Functional Status * Are you deaf or do you have serious difficulty hearing? Answer Date of Assessment Author No 02/23/2025 2:36 PM EDT Doles, As baljit Quiroz RN * Are you blind or do [...] Date Author No 02/23/2025 2:36 PM EDT Gareth Bautista RN documented in this encounter Ordered Prescriptions Prescription Sig Dispense Quantity Refills Last Filled Start Date End Date magnesium oxide (MAG-OX) 400 mg magnesium tablet Take 1 tablet (400 mg total) by mouth 1 (one) time each day. 30 tablet 2 03/20/2025 riboflavin (VITAMIN B2) 400 mg tablet Take 1 tablet (400 mg total) by mouth 1 (one) time each day. 30 tablet 03/20/2025 04/19/2025 documented in this encounter Progress Notes * Ayanna Jaffe MD - 03/20/2025 11:40 AM EDT HPI: Jovana Malik is a 79 y.o. year old female referred to our center by Caitlyn Bowie MD for Evaluation and management of multiple neurological symptoms cognitive changes Interval history Patient returns for follow-up visit. She is not on any DMT at this time. Patient notes that beginning 10 days ago her left eye has been painful to touch and she notes some double vision. She saw her eye doctor who thought she might have optic neuritis. They treated her with oral prednisone 10 mg x 5 days and patient notes that she has seen about a 50% improvement ( her baseline dose of prednisone is 2.5 mg every other day). Left eye is still not right. Every time she has an MRI she coughs blood and O2 drops into 60s Last visit history As I enter the room patient immediately reports that just prior to leaving her home to come to her appointment she hit her head. She was bending forward to picker some shoes then stood up and hit her head hard on the door frame. She denies loss of consciousness. States she is taking Coumadin andis concerned about possibility of a bleed. Denies nausea or vomiting but states that she feels woozy and is describing a visual disturbance/worsening of vision since the incident. She drove herselfhere today. Last visit history: No new neurological symptom concerning for demyelination since last visit Since last visit She went to ED in August with headache , double vision , Lt blurry vision , she had resolution of symptoms in 24 hr , She has been evaluated in ED ESR high 74 , elevated CRP 4.36 positive CLARA 1:40 She denies any jaw claudication yet she has TMJ , she experience temporal She has visual symptoms in Lt eye , she has been having flashes in Lt eye , have close eye , resolve 15/20 minutes , anxious she was diagnosed with ocular migraine Patient has been seeing neuro-ophthalmology in the past she will contact the clinic for an appointment to also have a vascular surgeon that she is following with to accommodate for possible of the temporal artery biopsy She did go again in September as she had her head in the refrigerator to ensure no bleeding She has been rarely using Diazepam nightly She was evaluated with speech therapy and had some guidance on methods to try at home She is still going to physical therapy , in [facility] , she has been declining in relation to her balance, she had ocassioanl falls when she is off balance , we discussed fall precaution and also discussing with physical therapy proper assistive walking does not devices She is being referred to heart failure specialist at [facility] Patient has been referred to nailing machine feeder for assessment Last visit history Patient is here for follow up [...] with sleep she restarted She saw her manager medicaid and will refer to sleep study she wants to go to [facility] HPI 79 yo female with PMH Pulmonary HTN , She does have coronary disease but nothing high-grade and never had percutaneous coronary invention or heart surgery leg bypass. She has rheumatic mitral valve disease and had a mitral clip done at [facility] several months ag significant COPD , lung cancer on oxygen 2 yrs now . She is s/p radiation , chemotherapy including vitamin. Antiphospholipid , factor 5 leiden , she is on warfarin , she had hematoma last summer in Rt leg that needed intervention She saw Dr Mccord in past 20 years ago , she had paresthesias and electric shock concern l'vernon , Rt leg heaviness , she had [...] Past Medical History: Diagnosis Date Adrenal insufficiency ([facility] V24) 08/23/2018 DX:Adrenal insufficiency ([facility]) Adrenal insufficiency ([facility] V24) DX:Adrenal insufficiency ([facility]) Akathisia 04/15/2013 DX:Akathisia Allergic rhinitis 08/23/2018 DX:Allergic rhinitis Antiphospholipid antibody syndrome ([facility] V24) 12/24/2018 DX:Antiphospholipid antibody syndrome ([facility]) Anxiety 12/07/2016 DX:Anxiety Bronchiectasis ([facility] V24, [facility] V28) 08/08/2017 DX:Bronchiectasis ([facility]) Cataract 08/26/2014 DX:Cataract Chronic obstructive pulmonary disease ([facility] V24, [facility] V28) 04/13/2017 DX:Chronic obstructive pulmonary disease ([facility]) 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 DX:Complicated migraine Congestive heart failure ([facility] V24, [facility] V28) 04/04/2017 DX:Congestive heart failure (HCC) Diverticulitis of sigmoid colon 12/15/2016 DX:Diverticulitis of sigmoid colon Elevated liver enzymes 09/23/2015 DX:Elevated liver enzymes Fibromyalgia 04/13/2017 DX:Fibromyalgia Gastroesophageal reflux disease 11/17/2016 DX:Gastroesophageal reflux disease Glaucoma suspect 08/26/2014 DX:Glaucoma suspect Heterozygous factor V Leiden mutation (CMS/HCC V24) 04/04/2017 DX:Heterozygous factor V Leiden mutation (HCC) History of deep vein thrombosis 04/04/2017 DX:History of deep vein thrombosis History of lung cancer 04/04/2017 DX:History of lung cancer; COMMENT: T2 N2 Mx LLL resection, Chemo, RT, Cisplatin, Vinorelbine [id number] 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 History of pulmonary embolism 05/15/2017 DX:History of pulmonary embolism History of rheumatic fever 12/12/2015 DX:History of rheumatic fever; COMMENT: With [facility] [employer] [facility] History of seizures 08/23/2018 DX:History of seizures; COMMENT: Temporal lobe seizures Hyperlipidemia 12/07/2016 DX:Hyperlipidemia Hyperparathyroidism ([facility] V24) 08/23/2018 DX:Hyperparathyroidism (HCC) Hyperparathyroidism ([facility] V24) DX:Hyperparathyroidism (HCC) Hypothyroidism 12/07/2016 DX:Hypothyroidism Insomnia 10/18/2016 [...] Postconcussion syndrome 02/18/2013 DX:Postconcussion syndrome Pulmonary hypertension (CMS/HCC V24, CMS/HCC V28) 04/04/2017 DX:Pulmonary hypertension (HCC) Radiation-induced pulmonary fibrosis (CMS/HCC V24) 11/13/2017 DX:Radiation-induced pulmonary fibrosis (HCC) Restrictive lung disease 08/08/2017 DX:Restrictive lung disease 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 DX:Zinc deficiency Current Outpatient Medications Medication Sig Dispense Refill albuterol HFA (PROAIR HFA ; PROVENTIL HFA ; VENTOLIN HFA) 90 mcg/actuation inhaler Inhale 2 puffs by mouth Every 4 hours as needed. ASCORBIC ACID PO Take by mouth. cetirizine (ZyrTEC) 10 mg tablet Take 1 tablet (10 mg total) by mouth daily. diazePAM (VALIUM) 5 mg tablet Take 1 tablet (5 mg total) by mouth 1 (one) time each day if needed. docusate sodium (COLACE) 100 mg capsule Take [...] times a day. 60 each 11 fluticasone propionate (FLONASE) 50 mcg/actuation nasal spray Administer 1 spray into affected nostril(s) daily. folic acid (FOLVITE) 1 mg tablet Take 1 tablet (1 mg total) by mouth daily. IRON, FERROUS SULFATE, ORAL Take by mouth. levothyroxine (SYNTHROID, LEVOTHROID) 25 mcg tablet Take 25 mcg by mouth daily. 1 tab daily 2 tabs Sat. And Sun meclizine (ANTIVERT) 25 mg tablet Take 25 mg by mouth as needed. metoprolol succinate (TOPROL-XL) 50 mg 24 hr tablet Take 50 mg by mouth daily. potassium chloride (KLOR-CON) 20 mEq packet DISSOLVE AND TAKE TWO PACKETS BY MOUTH EVERY DAY predniSONE (DELTASONE) 2.5 mg tablet Take 1 tablet (2.5 mg total) by mouth every other day. rosuvastatin (CRESTOR) 10 mg tablet Take 1 tablet (10 mg total) by mouth 3 (three) times a week. traZODone (DESYREL) 100 mg tablet Take 100 [...] other autoimmune diseases. Neurologic Exam: Visit Vitals BP 117/68 (BP Location: Right arm, Patient Position: Sitting) Pulse 76 Ht 1.575 m (62 ) Wt 57.6 kg (127 lb) SpO2 99% BMI 23.23 kg/m?? Smoking Status Never BSA 1.58 m?? Vitals: 03/20/25 1138 BP: 117/68 Pulse: 76 SpO2: 99% MS: AOx3 CN: perrla, V1-3 intact to [...] old female referred to our center by Caitlyn Bowie MD for evaluation and management of multiple neurological symptoms with a question of an old MS diagnosis that was revoked by a second opinion. She presents today after recent treatment of possible opticneuritis by her fund accounting manager with increased dose of oral steroid (She took 10 mg daily for 5 days when she normally takes 2.5 mg every other day). She is seeing improvement in symptoms but not completely back to baseline. She has never seen a neuro-fund accounting manager and I will enter a referral today. She is following up with her local fund accounting manager next week. She declines MRI of brain/orbits. Will also order home physical therapy evaluation for treatment of gait imbalance. Follow-up with Dr. Jaffe in 2 to 3 months or sooner as needed The patient and I discussed the clinical picture during today's appointment. Additional time was spent prior to the actual appointment reviewing records, lab values and imaging results and preparing documentation for today's visit. There was also time spent following the in person visit documenting, arranging for further diagnostic testing and follow-up appointments. The entire time spent in thisprocess was greater than 30 minutes. The majority of the actual [id number] visit was spent counseling the patient with respect to the current neurological picture. Ayanna Jaffe MD * Ayanna Jaffe MD - 03/20/2025 11:40 AM EDT HPI: Jovana Malik is a 79 y.o. year old female referred to our center by Caitlyn Bowie MD for Evaluation and management of multiple neurological symptoms cognitive changes /history ? Optic neuritis Interval history Patient is here for follow up No new neurological symptom concerning for demyelination since last visit Patient has been struggling for blurry vision and bilateral leg weakness, headache, left lower quadrant abdominal pain. she has been experiencing he has been experiencing generalized weakness and visual changes over thepast week, when she woke up this morning with Lt eye blurry vision She denies any improvement in her eye she discussed with her neurophthalmologist decided no appointment or evaluation from her side , concern for ocular migraine that happen almost once a week She had a follow up CT head with no concerning finding A 9 mm soft tissue nodule remains stable in the left superior orbit, visible dating back to 2008, slightly smaller now. She was evaluated by vascular surgeon and was not felt to be a candidate for biopsy , she also denies any jaw pain or claudication Lasr visit history Patient returns for follow-up visit. She is not on any DMT at this time. Patient notes that beginning 10 days ago her left eye has been painful to touch and she notes some double vision. She saw her eye doctor who thought she might have optic neuritis. They treated her with oral prednisone 10 mg x 5 days and patient notes that she has seen about a 50% improvement ( her baseline dose of prednisone is 2.5 mg every other day). Left eye is still not right. Every time she has an MRI she coughs blood and O2 drops into 60s Important history No new neurological symptom concerning for demyelination since last visit Since last visit She went to ED in August with headache , double vision , Lt blurry vision , she had resolution of symptoms in 24 hr , She has been evaluated in ED ESR high 74 , elevated CRP 4.36 positive CLARA 1:40 She denies any jaw claudication yet she has TMJ , she experience temporal She has visual symptoms in Lt eye , she has been having flashes in Lt eye , have close eye , resolve 15/20 minutes , anxious she was diagnosed with ocular migraine Patient has been seeing neuro-ophthalmology in the past she will contact the clinic for an appointment to also have a vascular surgeon that she is following with to accommodate for possible of the temporal artery biopsy She did go again in September as she had her head in the refrigerator to ensure no bleeding She has been rarely using Diazepam nightly She was evaluated with speech therapy and had some guidance on methods to try at home She is still going to physical therapy , in [facility] , she has been declining in relation to her balance, she had ocassioanl falls when she is off balance , we discussed fall precaution and also discussing with physical therapy proper assistive walking does not devices She is being referred to heart failure specialist at [facility] Patient has been referred to nailing machine feeder for assessment HPI 79 yo female with PMH Pulmonary HTN , She does have coronary disease but nothing high-grade and never had percutaneous coronary invention or heart surgery leg bypass. She has rheumatic mitral valve disease and had a mitral clip done at [facility] several months ag significant COPD [...] Past Medical History: Diagnosis Date Adrenal insufficiency ([facility] V24) 08/23/2018 DX:Adrenal insufficiency ([facility]) Adrenal insufficiency ([facility] V24) DX:Adrenal insufficiency ([facility]) Akathisia 04/15/2013 DX:Akathisia Allergic rhinitis 08/23/2018 DX:Allergic rhinitis Antiphospholipid antibody syndrome ([facility] V24) 12/24/2018 DX:Antiphospholipid antibody syndrome ([facility]) Anxiety 12/07/2016 DX:Anxiety Bronchiectasis ([facility] V24, [facility] V28) 08/08/2017 DX:Bronchiectasis ([facility]) Cataract 08/26/2014 DX:Cataract Chronic obstructive pulmonary disease ([facility] V24, [facility] V28) 04/13/2017 DX:Chronic obstructive pulmonary disease (HCC) 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 DX:Complicated migraine Congestive heart failure ([facility] V24, [facility] V28) 04/04/2017 DX:Congestive heart failure (HCC) Diverticulitis of sigmoid colon 12/15/2016 DX:Diverticulitis of sigmoid colon Elevated liver enzymes 09/23/2015 DX:Elevated liver enzymes Fibromyalgia 04/13/2017 DX:Fibromyalgia Gastroesophageal reflux disease 11/17/2016 DX:Gastroesophageal reflux disease Glaucoma suspect 08/26/2014 DX:Glaucoma suspect Heterozygous factor V Leiden mutation ([facility] V24) 04/04/2017 DX:Heterozygous factor V Leiden mutation (HCC) History of deep vein thrombosis 04/04/2017 DX:History of deep vein thrombosis History of lung cancer 04/04/2017 DX:History of lung cancer; COMMENT: T2 N2 Mx LLL resection, Chemo, RT, Cisplatin, Vinorelbine 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 History of pulmonary embolism 05/15/2017 DX:History of pulmonary embolism History of rheumatic fever 12/12/2015 DX:History of rheumatic fever; COMMENT: With [facility] [employer] [facility] History of seizures 08/23/2018 DX:History of seizures; COMMENT: Temporal lobe seizures Hyperlipidemia 12/07/2016 DX:Hyperlipidemia Hyperparathyroidism ([facility] V24) 08/23/2018 DX:Hyperparathyroidism (HCC) Hyperparathyroidism ([facility] V24) DX:Hyperparathyroidism (HCC) Hypothyroidism 12/07/2016 DX:Hypothyroidism Insomnia 10/18/2016 [...] Postconcussion syndrome 02/18/2013 DX:Postconcussion syndrome Pulmonary hypertension ([facility] V24, [facility] V28) 04/04/2017 DX:Pulmonary hypertension (HCC) Radiation-induced pulmonary fibrosis ([facility] V24) 11/13/2017 DX:Radiation-induced pulmonary fibrosis (HCC) Restrictive lung disease 08/08/2017 DX:Restrictive lung disease 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 DX:Zinc deficiency Current Outpatient Medications Medication Sig Dispense Refill albuterol HFA (PROAIR HFA ; PROVENTIL HFA ; VENTOLIN HFA) 90 mcg/actuation inhaler Inhale 2 puffs by mouth Every 4 hours as needed. ASCORBIC ACID PO Take by mouth. cetirizine (ZyrTEC) 10 mg tablet Take 1 tablet (10 mg total) by mouth daily. diazePAM (VALIUM) 5 mg tablet Take 1 tablet (5 mg total) by mouth 1 (one) time each day if needed. docusate sodium (COLACE) 100 mg capsule Take [...] times a day. 60 each 11 fluticasone propionate (FLONASE) 50 mcg/actuation nasal spray Administer 1 spray into affected nostril(s) daily. folic acid (FOLVITE) 1 mg tablet Take 1 tablet (1 mg total) by mouth daily. IRON, FERROUS SULFATE, ORAL Take by mouth. levothyroxine (SYNTHROID, LEVOTHROID) 25 mcg tablet Take 25 mcg by mouth daily. 1 tab daily 2 tabs Sat. And Sun meclizine (ANTIVERT) 25 mg tablet Take 25 mg by mouth as needed. metoprolol succinate (TOPROL-XL) 50 mg 24 hr tablet Take 50 mg by mouth daily. potassium chloride (KLOR-CON) 20 mEq packet DISSOLVE AND TAKE TWO PACKETS BY MOUTH EVERY DAY predniSONE (DELTASONE) 2.5 mg tablet Take 1 tablet (2.5 mg total) by mouth every other day. rosuvastatin (CRESTOR) 10 mg tablet Take 1 tablet (10 mg total) by mouth 3 (three) times a week. traZODone (DESYREL) 100 mg tablet Take 100 [...] other autoimmune diseases. Neurologic Exam: Visit Vitals BP 117/68 (BP Location: Right arm, Patient Position: Sitting) Pulse 76 Ht 1.575 m (62 ) Wt 57.6 kg (127 lb) SpO2 99% BMI 23.23 kg/m?? Smoking Status Never BSA 1.58 m?? Vitals: 03/20/25 1138 BP: 117/68 Pulse: 76 SpO2: 99% MS: AOx3 CN: perrla, V1-3 intact to [...] considerations include cavernous venous malformation and schwannoma. Ct HEAD 02/2025 A 9 mm soft tissue nodule remains stable in the left superior orbit, visible dating back to 2008, slightly smaller now. A/P: Jovana Malik is a 79 y.o. year old female referred to our center by Caitlyn Bowie MD for evaluation and management of multiple neurological symptoms with a question of an old MS diagnosis that was revoked by a second opinion. She presents today after recent treatment of possible opticneuritis by her fund accounting manager with increased dose of oral steroid (She took 10 mg daily for 5 days when she normally takes 2.5 mg every other day). She is not seeing improvement not completely backto baseline. She is having recurrence of her visual symptoms that has been bothersome , comes in bouts associated with weakness Will treat patient with Magnesium and riboflavin for concern of ocular migraine Will obtain AQP4 AB/mog AB as rarely ON in age group Will repeat ESR Referral to neuroophthalmologist Consider MRI BRAIN /ORBIT if patient tolerate Follow-up in 3 months The patient and I discussed the clinical [...] 40 minutes. The majority of the actual [id number] visit was spent counseling the patient with respect to the current neurological picture. Ayanna Jaffe MD documented in this encounter Plan of Treatment Upcoming Encounters Date Type Department Care Team (Late st Contact Info) Description 04/14/2025 10:00 AM EDT Evaluation [facility] [place] [address] [facility] [address] [place] [phone] Bruno Moreno, PT [address] [place] [address] 05/29/2025 3:00 PM EST Office Visit [facility] [place] [address] [facility] [address] [place] [id number] Ayanna Jaffe MD [address] [place] [phone] Pending Results Name Type Priority Associated Diagnoses Date /Time Myelin oligodendrocyte glycoprotein antibody with reflex to titer Lab Routine Optic neuritis White matter lesion of central nervous system Blurry vision 03/20/2025 12:31 PM EDT Scheduled Orders Name Type Priority Associated Diagnoses Orde r Schedule Myelin oligodendrocyte glycoprotein antibody with reflex to titer Lab Routine Optic neuritis White matter lesion of central nervous system Blurry vision 1 Occurrences starting 03/20/2025 until 03/20/2026 Scheduled Referrals Name Type Priority Associated Diagnoses Order Schedule Ambulatory referral to Neuro-Ophthalmology Outpatient Referral Routine Optic neuritis White matter lesion of central nervous system Blurry vision 1 Occurrences starting 03/20/2025 until 03/20/2026 documented as of this encounter Results * Sedimentation rate (03/20/2025 12:31 PM EDT) [facility] Sed Rate 25 0 - 30 mm/hr LAB HEMETOLOGY METHOD 03/20/2025 2:14 PM EDT [facility] Blood Venous blood specimen / Unknown Venipuncture / Unknown 03/20/2025 12:31 PM EDT 03/20/2025 12:31 PM EDT Ayanna Jaffe MD LAB BLOOD ORDERABLES Fin al Result Performing Organization Address City/[facility]/ZIP Co de Phone Number [facility] [address] [place] [address], * Neuromyelitis optica, [id number] (03/20/2025 12:31 PM EDT) [facility] NMO IgG Autoantibodies <1.5 0.0 - 3.0 U/mL 03/24/2025 3:05 PM EDT [facility] Comment: Negative: 0.0 - 3.0 Positive: >3.0 Blood Venous blood specimen / Unknown Venipuncture / Unknown 03/20/2025 12:31 PM EDT 03/20/2025 12:31 PM EDT Narrative [facility] - 03/24/2025 3:05 PM EDT Performed at: 01 - [facility] [id number] [employer] Sales Supervisor: Melissa Wetzel MD, Phone: [phone] us Ayanna Jaffe MD LAB BLOOD ORDERABLES Fin al Result [facility] documented in this encounter Visit Diagnoses Diagnosis Optic neuritis- Primary Unspecified optic neuritis White matter lesion of central nervous system Blurry vision Other specified visual disturbances documented in this encounter Care Teams Control Area Operator Relationship Specialty Start Date End Date Caitlyn Bowie MD [facility] [place] [address] PCP - General Internal Medicine 12/10/24 documented as of this encounter
--- NOTE | 2025-03-24 11:25 | MHC.OFFVIS ---
Vital Signs 03/24/25 11:30 Height 5 ft 2 in Weight 125 lb 10.616 oz BMI 23.0 BP 133/58 L Blood Pressure Location Lt brachial Position Sitting Pulse 71 Intake Visit Reasons: Chronic hypokalemia Intake Note: Jovana presents in the office as a new patient. CC: She states that she has issues with diverticulitis and states she was given a drug she was allergic too at [facility] ED. She was seen in the ED here as well due to some issues and she states it will be in the chart. Senior Radiation Therapist Required: No Allergies morphine Allergy (Severe, Verified 03/24/25 11:30) Itching avocado (AVOCADO) Allergy (Mild, Verified 03/24/25 11:30) ITCHY THROAT, RASH azithromycin (AZITHROMYCIN) Allergy (Mild, Verified 03/24/25 11:30) ITCHY THROAT, RASH barium iodide (BARIUM IODIDE) Allergy (Mild, Verified 03/24/25 11:30) ITCHY THROAT, RASH barium sulfate Allergy (Mild, Verified 03/24/25 11:30) Itch bee pollen (BEE STINGS) Allergy (Mild, Verified 03/24/25 11:30) ITCHY THROAT, RASH ciprofloxacin (From CIPRO) Allergy (Mild, Verified 03/24/25 11:30) ITCHY THROAT, RASH clarithromycin (From BIAXIN) Allergy (Mild, Verified 03/24/25 11:30) ITCHY THROAT, RASH diatrizoate meglumine (From GASTROGRAFIN) Allergy (Mild, Verified 03/24/25 11:30) ITCHY THROAT, RASH diatrizoate sodium (From GASTROGRAFIN) Allergy (Mild, Verified 03/24/25 11:30) ITCHY THROAT, RASH diclofenac (From VOLTAREN) Allergy (Mild, Verified 03/24/25 11:30) ITCHY THROAT, RASH erythromycin base (ERYTHROMYCIN BASE) Allergy (Mild, Verified 03/24/25 11:30) ITCHY THROAT, RASH gentamicin (GENTAMICIN) Allergy (Mild, Verified 03/24/25 11:30) ITCHY THROAT, RASH Iodinated Contrast Media (IVP DYE) Allergy (Mild, Verified 03/24/25 11:30) ITCHY THROAT, RASH levofloxacin (From LEVAQUIN) Allergy (Mild, Verified 03/24/25 11:30) ITCHY THROAT, RASH metronidazole (From FLAGYL) Allergy (Mild, Verified 03/24/25 11:30) ITCHY THROAT, RASH moxifloxacin (From AVELOX) Allergy (Mild, Verified 03/24/25 11:30) ITCHY THROAT, RASH Penicillins (PENICILLINS) Allergy (Mild, Verified 03/24/25 11:30) ITCHY THROAT, RASH shrimp (SHRIMP) Allergy (Mild, Verified 03/24/25 11:30) ITCHY THROAT, RASH Sulfa (Sulfonamide Antibiotics) (SULFA (SULFONAMIDE ANTIBIOTICS)) Allergy (Mild, Verified 03/24/25 11:30) ITCHY THROAT, RASH vancomycin (VANCOMYCIN) Allergy (Mild, Verified 03/24/25 11:30) ITCHY THROAT, RASH clindamycin Adverse Reaction (Intermediate, Verified 03/24/25 11:30) Unknown HPI HPI Chronic hypokalemia: Details: HPI 79 year old female with complex medical issues including previous lung resection for lung cancer, radiation heart disease, mitral valve regurgitation status post mitral clip, moderate coronary artery disease, pulmonary hypertension, lung disease on supplemental oxygen and diastolic heart failure, EMILY Humphreys, who I am seeing for assessment for GI sx She has chronic Oxygen use and uses CPAP she has had recurrrent attacks of diverticulitis over last 4-5 yrs she was seeing Dr Abdullahi in the past for GI issues she has had few admissions for this she has constipation for her whole life can be every few days or longer she will take prune jucie and MOM once a week maybe occ blood in stool when wiping cant recall her last colonoscopy reflux is varable, she denies dysphagia to food or liquids she avoids PPI due to pneumonia risks, she had it before and felt it was giving her pneumonia ROS: Constitutional : No Weight loss, No Fever, No Chills ENT/Mouth : No sore throat, No Rhinorrhea Eyes: No Swelling, No Redness Cardiovascular : No Chest Pain, + SOB, No Edema Respiratory : No Cough, No Sputum, No Wheezing Gastrointestinal : see HPI Genitourinary : NO Dysuria, No Urinary Frequency, No Hematuria, No Urgency Musculoskeletal : No joint pain, No Myalgias, No Joint Swelling Skin : No Skin Lesions, No rash Neuro : No Weakness, No Numbness, No Dizziness, No Headache Psych : No Anxiety/Panic, No Depression Heme/Lymph: No Bruising, No Lymphadenopathy Endocrine : No Polyuria, No Polydipsia All other systems reviewed and are negative. Medical History Ankle pain Chronic hypercapnic respiratory failure KANDY treated with BiPAP COPD (chronic obstructive pulmonary disease) Open wound Warfarin anticoagulation Complex sleep apnea syndrome Leg pain Anemia Tachycardia DVT (deep venous thrombosis) Compression fracture of body of thoracic vertebra ASD (atrial septal defect) Pleuritic chest pain History of COVID-19 Chronic anticoagulation Hypothyroidism GERD (gastroesophageal reflux disease) Hyperlipidemia Hypertension Factor 5 Leiden mutation, heterozygous History of non-ST elevation myocardial infarction (NSTEMI) Hypoxia Anxiety PTSD (post-traumatic stress disorder) Hemoptysis Dyspnea Tracheobronchitis CLARA positive Diverticulitis Allergic bronchitis (HFpEF) heart failure with preserved ejection fraction Subarachnoid bleed Insomnia Anti-phospholipid antibody syndrome Hypogammaglobulinemia Chronic respiratory failure Arterial insufficiency of lower extremity Complex regional pain syndrome i of right lower limb Post herpetic neuralgia Pulmonary hypertension Pericardial effusion Pulmonary emboli Pleural effusion Radiation fibrosis of lung Pneumonitis Pulmonary nodules Lung cancer Surgical History History of colonoscopy History of lung surgery History of tonsillectomy History of hysterectomy S/P mitral valve clip implantation History of cardiac cath Family History Sister No problems noted. Mother Cardiovascular disease Daughter Tachycardia Other KANDY (obstructive sleep apnea) Social History Household Members: Other Housing: Intermediate Do you presently have visiting nurse or other home services: Yes (at home had HOSPITALITY SERVICES MANAGER that came to visit her) Unable to assess alcohol history related to: Unknown Alcohol intake: never Comment: stand by assist with ambulation Patient Tobacco Use Status: Never used Tobacco Second Hand Smoke Exposure: No Advance Directives Date on File: 06/15/22 service: No Current occupational status: retired EXAM: GENERAL: The patient is relaxed VITAL SIGNS:see workflow HEENT: Nonicteric sclerae, PERRLA, EOMI. Oropharynx clear. Moist mucous membranes. Conjunctivae appear well perfused. No thyroid mass. CHEST: Chest wall is nontender. HEART: Regular rate and rhythm without murmurs. LUNGS: Clear to auscultation bilaterally. ABDOMEN: Soft, positive bowel sounds, nontender, no organomegaly.no flank tenderness mild folliculitis around anal area SKIN: No rash, no excessive bruising, petechiae, or purpura. NEUROLOGIC: Cranial nerves II-XII intact without motor/sensory deficit. Psych: normal affect A/P: 1/ Recurrent diverticulitis, may have SCAD 2/ GERD she is high risk surgical candidate PLAN: 1/ she wants to avoid even sigmoidoscopy without sedation, prob has hemorrhoidal bleeding and some accompanying follicultiis 2/ will trial muporicin topical, and augmentin as needed for flares of diverticulitis 3/ she wants to hold on pepcid, try OTC gaviscon 4/ advised on trying probiotics, may help reduce recurrent diverticulitis 5/ we also discussed being proactive with constipation rather than reactive, can try prune juice M,W F-- hard to take greens due to coumadin PFS Medical History Chest pain Chest pain Ankle pain Chronic hypercapnic respiratory failure KANDY treated with BiPAP COPD (chronic obstructive pulmonary disease) Open wound Warfarin anticoagulation Complex sleep apnea syndrome Leg pain Anemia Tachycardia DVT (deep venous thrombosis) Compression fracture of body of thoracic vertebra ASD (atrial septal defect) Pleuritic chest pain History of COVID-19 Chronic anticoagulation Hypothyroidism GERD (gastroesophageal reflux disease) Hyperlipidemia Hypertension Factor 5 Leiden mutation, heterozygous History of non-ST elevation myocardial infarction (NSTEMI) Hypoxia Anxiety PTSD (post-traumatic stress disorder) Hemoptysis Dyspnea Tracheobronchitis CLARA positive Diverticulitis Allergic bronchitis (HFpEF) heart failure with preserved ejection fraction Subarachnoid bleed Insomnia Anti-phospholipid antibody syndrome Hypogammaglobulinemia Chronic respiratory failure Arterial insufficiency of lower extremity Complex regional pain syndrome i of right lower limb Post herpetic neuralgia Pulmonary hypertension Pericardial effusion Pulmonary emboli Pleural effusion Radiation fibrosis of lung Pneumonitis Pulmonary nodules Lung cancer Surgical History History of colonoscopy History of lung surgery History of tonsillectomy History of hysterectomy S/P mitral valve clip implantation History of cardiac cath Family History Sister No problems noted. Mother Cardiovascular disease Daughter Tachycardia Other KANDY (obstructive sleep apnea) Social History Household Members: Other Housing: Intermediate Do you presently have visiting nurse or other home services: Yes (at home had HOSPITALITY SERVICES MANAGER that came to visit her) Unable to assess alcohol history related to: Unknown Alcohol intake: never Comment: stand by assist with ambulation Patient Tobacco Use Status: Never used Tobacco Second Hand Smoke Exposure: No Advance Directives Date on File: 06/15/22 service: No Current occupational status: retired Physical Exam Vital Signs: BMI result Body Mass Index 23.0 Assessment & Plan Assessment & Plan (1) Diverticula of colon: Code(s): K57.30 - Diverticulosis of large intestine without perforation or abscess without bleeding Category: Medical Plan: as above Medications: New amoxicillin-pot clavulanate 500-125 mg (Augmentin) 1 tab PO TID 21 tabs 1RF mupirocin 2% (Centany) 1 appl topical BID 22 grams 0RF Coding Level of Care Code New Pt Level 4 (19756) Diagnoses Diverticula of colon K57.30
[2025-03-24 11:30] VITALS: BP 133/58; PULSE 71; BMI 23.0
--- OUTSIDE RECORDS SUMMARY | 2025-03-24 15:13 | XMS_ITS | Encounter Summary ---
Author Organization [facility] and [facility] Address [address] [place] [address] Care Team Providers Care Group Sales Coordinator Name Role Phone Caitlyn Bowie MD Primary Care Provider +1- [phone] Encounter Details Date Type Department Care Team (Late st Contact Info) Description 07/12/2019 Scanned Document Onco-Oncology Program at [address] [place] [address] Norma Renee MD [address] [place] [address] 2 [place] [address] Social History Tobacco Use Types [...] PM EDT Telemedicine Cancer Center at [address] [place], [place] [id number] Ronald Mills MD 240 [facility] [address] [place] [address] documented as of this encounter Visit Diagnoses Not on filedocumented in this encounter Additional Health Concerns Infection Onset Date Last Indicated Resolved Time COVID-19 03/05/2022 03/05/2022 03/15/2022 7:18 PM EDT Assessment Noted Time PHQ-9 Depression Total Score: 2 11/07/19 19 2:06 PM EDT documented as of this encounter Care Teams Group Sales Coordinator Relationship Specialty Start Date End Date Caitlyn Bowie MD 3400 [facility] 1 [place] [address] PCP - General Internal Medicine 05/06/21 Henry Kelly MD Pulmonary Department 175 [facility], [address] [place] [address] Physician Pulmonary Disease 09/06/17 06/22/20 documented as of this encounter
--- OUTSIDE RECORDS SUMMARY | 2025-03-24 15:13 | XMS_ITS | Encounter Summary ---
Author Organization [facility] and [facility] Address [address] [place] [phone] Care Team Providers Care Superintendent Landfill Operations Name Role Phone Caitlyn Bowie MD Primary Care Provider +1- [phone] Encounter Details Date Type Department Care Team (Late st Contact Info) Description 02/02/2017 Scanned Document [facility] Health Information Management [address] [place] [address] External, Provider Social History Tobacco Use Types [...] [facility] 240 [facility] [address] [place], [place] [phone] Ronald Mills MD 240 [facility] [address]1 [place] [address] documented as of this encounter Visit Diagnoses Not on filedocumented in this encounter Additional Health Concerns Infection Onset Date Last Indicated Resolved Time COVID-19 03/05/2022 03/05/2022 03/15/2022 7:18 PM EDT documented as of this encounter Care Teams Superintendent Landfill Operations Relationship Specialty Start Date End Date Caitlyn Bowie MD 3400 [facility] 1 [place] [address] PCP - General Internal Medicine 05/06/21 Henry Kelly MD Pulmonary Department 175 [facility], [address] [place] [address] Physician Pulmonary Disease 09/06/17 06/22/20 documented as of this encounter
--- OUTSIDE RECORDS SUMMARY | 2025-03-24 15:13 | XMS_ITS | Encounter Summary ---
Author Organization [facility] and [facility] Address [address] [place] [address] Care Team Providers Care Organ Pipe Maker Metal Name Role Phone Caitlyn Bowie MD Primary Care Provider +1- [phone] Encounter Details Date Type Department Care Team (Late st Contact Info) Description 12/16/2016 Scanned Document [facility] Health Information Management [address] [place] [address] External, Provider Social History Tobacco Use Types [...] Center at [facility] 240 [facility] Building [address] [place], [place] [id number] Ronald Mills MD 240 [facility] Max [address]1 [place] [address] documented as of this [...] documented as of this encounter Care Teams Organ Pipe Maker Metal Relationship Specialty Start Date End Date Caitlyn Bowie MD 3400 [facility] 1 [place] [address] PCP - General Internal Medicine 05/06/21 Henry Kelly MD Pulmonary Department 175 [facility], [address] [place] [address] Physician Pulmonary Disease 09/06/17 06/22/20 documented as of this encounter
--- OUTSIDE RECORDS SUMMARY | 2025-03-24 15:13 | XMS_ITS | Encounter Summary ---
Author Organization [facility] and [facility] Address [address] [place] [address] Care Team Providers Care Fishing Guide Name Role Phone Caitlyn Bowie MD Primary Care Provider +1- [phone] Encounter Details Date Type Department Care Team (Late st Contact Info) Description 08/16/2012 Abstract [facility] Health Information Management [address] [place] [address] [place], Primary Care [address] [place] [address] Social History Tobacco Use Types Packs/Day Years [...] PM EDT Telemedicine Cancer Center at [address] [place], [place] [phone] Ronald Mills MD 240 [facility] [address] [place] [address] documented as of this encounter Visit Diagnoses Not on filedocumented in this encounter Additional Health Concerns Infection Onset Date Last Indicated Resolved Time COVID-19 03/05/2022 03/05/2022 03/15/2022 7:18 PM EDT documented as of this encounter Care Teams Fishing Guide Relationship Specialty Start Date End Date Caitlyn Bowie MD 3400 [facility] 1 [place] [address] PCP - General Internal Medicine 05/06/21 Henry Kelly MD Pulmonary Department [address] [place] [address], [address] [place] [address] Physician Pulmonary Disease 09/06/17 06/22/20 documented as of this encounter
--- OUTSIDE RECORDS SUMMARY | 2025-03-24 15:13 | XMS_ITS | Encounter Summary ---
Author Organization [facility] and [facility] Address [address] [place] [address] Care Team Providers Care Olive Brine Tester Name Role Phone Caitlyn Bowie MD Primary Care Provider +1- [phone] Encounter Details Date Type Department Care Team (Late st Contact Info) Description 08/29/2019 Scanned Document Cancer Center at [address] [address] External, Provider Social History Tobacco Use Types [...] [facility] Building [address] [place], [place] [phone] Ronald Mills MD [address] [place] [address] [address] [place] [address] documented as of [...] as of this encounter Care Teams Olive Brine Tester Relationship Specialty Start Date End Date Caitlyn Bowie MD 3400 [facility] 1 [place] [address] PCP - General Internal Medicine 05/06/21 Henry Kelly MD Pulmonary Department 175 [facility], [address] [place] [address] Physician Pulmonary Disease 09/06/17 06/22/20 documented as of this encounter
--- OUTSIDE RECORDS SUMMARY | 2025-03-24 15:13 | XMS_ITS | Encounter Summary ---
Author Organization [facility] Address [address] [place] [address] Care Team Providers Care Sand Cleaning Machine Operator Name Role Phone Caitlyn Bowie MD Primary Care Provider +1- [phone] Encounter Details Date Type Department Care Team (Late st Contact Info) Description 12/16/2016 Scanned Document [facility] Health Information Management [address] [place] [address] External, Provider Social History Tobacco Use Types [...] at [facility] 240 [facility] Building [address] [place], [place] [phone] Ronald Mills MD 240 [facility] Max [address] [place] [address] documented as of this encounter [...] as of this encounter Care Teams Sand Cleaning Machine Operator Relationship Specialty Start Date End Date Caitlyn Bowie MD 3400 [facility] 1 [place] [address] PCP - General Internal Medicine 05/06/21 Henry Kelly MD Pulmonary Department 175 [facility], [address] [place] [address] Physician Pulmonary Disease 09/06/17 06/22/20 documented as of this encounter
--- OUTSIDE RECORDS SUMMARY | 2025-03-24 15:13 | XMS_ITS | Encounter Summary ---
Author Organization [facility] and [facility] Address [address] [place] [address] Care Team Providers Care Concrete Mixer Loader Truck Mounted Name Role Phone Caitlyn Bowie MD Primary Care Provider +1- [phone] Encounter Details Date Type Department Care Team (Late st Contact Info) Description 12/16/2016 Scanned Document [facility] Health Information Management [address] [place] [address] External, Provider Social History Tobacco Use Types [...] Center at [facility] 240 [facility] Building [address] [place], [place] [phone] Ronald Mills MD 240 [facility] A1 [place] [address] documented as of this encounter Visit Diagnoses Not on filedocumented in this encounter Additional Health Concerns Infection Onset Date Last Indicated Resolved Time COVID-19 03/05/2022 03/05/2022 03/15/2022 7:18 PM EDT documented as of this encounter Care Teams Concrete Mixer Loader Truck Mounted Relationship Specialty Start Date End Date Caitlyn Bowie MD 3400 [facility] 1 [place] [address] PCP - General Internal Medicine 05/06/21 Henry Kelly MD Pulmonary Department 175 [facility], [address] [place] [address] Physician Pulmonary Disease 09/06/17 06/22/20 documented as of this encounter
--- OUTSIDE RECORDS SUMMARY | 2025-03-24 15:13 | XMS_ITS | Encounter Summary ---
Author Organization [facility] Address [address] [place] [address] Care Team Providers Care Liberal Arts Dean Name Role Phone Caitlyn Bowie MD Primary Care Provider +1- [phone] Encounter Details Date Type Department Care Team (Late Contact Info) Description 09/16/2020 Scanned Document [facility] Health Information Management [address] [place] [address] External, Provider Social History Tobacco Use Types [...] at [facility] 240 [facility] Building [address] [place], [place] [phone] Ronald Mills MD [address] [place] [address] [address] [place] [address] documented as of this encounter [...] documented as of this encounter Care Teams Liberal Arts Dean Relationship Specialty Start Date End Date Caitlyn Bowie MD [address] [address] PCP - General Internal Medicine 05/06/21 documented as of this encounter
--- OUTSIDE RECORDS SUMMARY | 2025-03-24 15:13 | XMS_ITS | Encounter Summary ---
Author Organization [facility] and [facility] Address [address] [place] [address] Care Team Providers Care Career Development Coordinator/Teacher Name Role Phone Caitlyn Bowie MD Primary Care Provider +1- [phone] Encounter Details Date Type Department Care Team (Late st Contact Info) Description 12/19/2016 Scanned Document [facility] Health Information Management [address] [place] [address] External, Provider Social History Tobacco Use Types [...] Cancer Center at [facility] 240 [facility] Building [address] [place], [place] [phone] Ronald Mills MD 240 [facility] Max [address]1 [place] [address] documented as of this encounter [...] as of this encounter Care Teams Career Development Coordinator/Teacher Relationship Specialty Start Date End Date Caitlyn Bowie MD [facility] 1 [place] [address] PCP - General Internal Medicine 05/06/21 Hnery Kelly MD Pulmonary Department 175 [facility], [address] [place] [address] Physician Pulmonary Disease 09/06/17 06/22/20 documented as of this encounter
--- OUTSIDE RECORDS SUMMARY | 2025-03-24 15:13 | XMS_ITS | Encounter Summary ---
Author Organization [facility] and [facility] Address [address] [place] [address] Care Team Providers Care Chemists Name Role Phone Caitlyn Bowie MD Primary Care Provider +1- [phone] Encounter Details Date Type Department Care Team (Late st Contact Info) Description 07/26/2012 Abstract [facility] Health Information Management [address] [place] [address] [place], Primary Care [address] [place] [address] Social History Tobacco Use Types Packs/Day Years [...] PM EDT Telemedicine Cancer Center at [address] [place], [place] [address] Ronald Mills MD [address] [place] [address] documented as of this encounter Visit Diagnoses Not on filedocumented in this encounter Additional Health Concerns Infection Onset Date Last Indicated Resolved Time COVID-19 03/05/2022 03/05/2022 03/15/2022 7:18 PM EDT documented as of this encounter Care Teams Chemists Relationship Specialty Start Date End Date Caitlyn Bowie MD 3400 [facility] 1 [place] [address] PCP - General Internal Medicine 05/06/21 Henry Kelly MD Pulmonary Department [address] [facility], [address] [place] [address] Physician Pulmonary Disease 09/06/17 06/22/20 documented as of this encounter
--- OUTSIDE RECORDS SUMMARY | 2025-03-24 15:13 | XMS_ITS | Encounter Summary ---
Author Organization [facility] and [facility] Address [address] [place] [phone] Care Team Providers Care Pile Driving Supervisor Name Role Phone Caitlyn Bowie MD Primary Care Provider +1- [phone] Encounter Details Date Type Department Care Team (Late st Contact Info) Description 04/18/2013 Documentation Hematology Program at [address] [address] Isis Ragland RN Social History Tobacco Use [...] 240 [facility] Building [address] [place], [place] [phone] Ronald Mills MD 240 [facility] [address]1 [place] [address] documented as of this encounter Visit Diagnoses Not on filedocumented in this encounter Additional Health Concerns Infection Onset Date Last Indicated Resolved Time COVID-19 03/05/2022 03/05/2022 03/15/2022 7:18 PM EDT documented as of this encounter Care Teams Pile Driving Supervisor Relationship Specialty Start Date End Date Caitlyn Bowie MD 3400 [facility] 1 [place] [address] PCP - General Internal Medicine 05/06/21 Henry Kelly MD Pulmonary Department 175 [facility], [address] [place] [address] Physician Pulmonary Disease 09/06/17 06/22/20 documented as of this encounter
--- OUTSIDE RECORDS SUMMARY | 2025-03-24 15:13 | XMS_ITS | Patient Health Record ---
Author Organization [facility] Address [address] [place] [address] Care Team Providers Care Certified Surgical First Assistant Name Role Phone AzebShruti esquivelberly Primary Care Provider Cristian Fountain Unavailable [phone] Allergies Allergen (clinical drug ingredient) Drug/Non Drug Allergy documented on EMR Reaction Allergy Type Onset Date Status moxifloxacin Avelox Unknown Drug Allergy Acti ve [...] Act esmer Biaxin Unknown Drug Allergy Active Reason For Referral [...] Status W/U Status Risk Notes Problem Diverticulitis (380817818) Diverticulitis (K57.92) Active confirmed Problem Irritable bowel syndrome characterized by constipation (791444224) Irritable bowel syndrome with constipation (K58.9) Active confirmed Problem Gastroesophageal reflux disease (209216836) GERD (gastroesophageal reflux disease) (K21.9) Active confirmed Plan Of Treatment No Information Insurance Providers Payer Name Payer Address Payer Phone Subscriber Number Group Number Insured Name Patient Relationship to Insured Coverage Start Date Coverage End Date MEDICARE OF [place] [address] [place] [address] [id number] CINDA WATSON Self - patient is the insured [employer] ATTN CLAIMS [address] [place] [address] [id number] CINDA WATSON Self - patient is the insured Medical (General) History Medical History History ICD Code NC-04/2021-sees Dr. 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 Hogan at [facility]-has had EGD's with Dr. Gomes Pneumomias Hypothyroidism Surgical History Surgery Date(Month/Year) Tonsils and adenoids BOLA Lung cancer-Left lower lobectomy at [facility], XRT, Chemo 2008
--- OUTSIDE RECORDS SUMMARY | 2025-03-24 15:13 | XMS_ITS | Encounter Summary ---
Author Organization [facility] Address [address] [place] [address] Care Team Providers Care Supervisor Process Testing Name Role Phone Caitlyn Bowie MD Primary Care Provider +1- [phone] Encounter Details Date Type Department Care Team (Late st Contact Info) Description 01/28/2013 Scanned Document Thoracic Oncology Program at [address] [address] Solo Henry MD [address] [place] [phone] Social History Tobacco Use Types Packs/Day [...] [facility] [address] [facility] [address] [place], [place] [address] Ronald Mills MD 240 [facility] [address] [place] [address] documented as of this encounter Visit Diagnoses Not on filedocumented in this encounter Additional Health Concerns Infection Onset Date Last Indicated Resolved Time COVID-19 03/05/2022 03/05/2022 03/15/2022 7:18 PM EDT documented as of this encounter Care Teams Supervisor Process Testing Relationship Specialty Start Date End Date Caitlyn Bowie MD 3400 [facility] Max 1 [place] [address] PCP - General Internal Medicine 05/06/21 Henry Kelly MD Pulmonary Department 175 [facility], [address] [place] [address] Physician Pulmonary Disease 09/06/17 06/22/20 documented as of this encounter
--- OUTSIDE RECORDS SUMMARY | 2025-03-24 15:13 | XMS_ITS | Encounter Summary ---
Author Organization [facility] Address [address] [place] [address] Care Team Providers Care Blunger Machine Operator Name Role Phone Caitlyn Bowie MD Primary Care Provider +1- [phone] Encounter Details Date Type Department Care Team (Late Contact Info) Description 09/18/2020 Scanned Document [facility] Health Information Management [address] [place] [address] External, Provider Social History Tobacco Use Types [...] 240 [facility] [address] [place], [place] [phone] Ronald Mills MD [address] [place] [address] [address] [place] [address] documented as of this encounter [...] documented as of this encounter Care Teams Blunger Machine Operator Relationship Specialty Start Date End Date Caitlyn Bowie MD [address] [address] PCP - General Internal Medicine 05/06/21 documented as of this encounter
--- OUTSIDE RECORDS SUMMARY | 2025-03-24 15:13 | XMS_ITS | Encounter Summary ---
Author Organization [facility] and [facility] Address [address] [place] [address] Care Team Providers Care Director Security Risk Management Name Role Phone Caitlyn Bowie MD Primary Care Provider +1- [phone] Encounter Details Date Type Department Care Team (Late st Contact Info) Description 12/16/2016 Scanned Document [facility] Health Information Management [address] [place] [address] External, Provider Social History Tobacco Use Types [...] [facility] at [facility] 240 [facility] Building [address] [place], [place] [phone] Ronald Mills MD 240 [facility] [address]1 [place] [address] documented as of this encounter [...] as of this encounter Care Teams Director Security Risk Management Relationship Specialty Start Date End Date Caitlyn Bowie MD [facility] 1 [place] [address] PCP - General Internal Medicine 05/06/21 Henry Kelly MD Pulmonary Department 175 [facility], [address] [place] [address] Physician Pulmonary Disease 09/06/17 06/22/20 documented as of this encounter
--- OUTSIDE RECORDS SUMMARY | 2025-03-24 15:13 | XMS_ITS | Encounter Summary ---
Author Organization [facility] and [facility] Address [address] [place] [address] Care Team Providers Care Net Finisher Name Role Phone Caitlyn Bowie MD Primary Care Provider +1- [phone] Encounter Details Date Type Department Care Team (Late st Contact Info) Description 09/17/2020 Scanned Document [facility] Health Information Management [address] [place] [address] External, Provider Social History Tobacco Use Types [...] [facility] 240 [facility] Building [address] [place], [place] [phone] Ronald Mills MD [address] [place] [address] [address] [place] [address] documented as of this encounter [...] as of this encounter Care Teams Net Finisher Relationship Specialty Start Date End Date Caitlyn Bowie MD [address] [address] PCP - General Internal Medicine 05/06/21 documented as of this encounter
--- OUTSIDE RECORDS SUMMARY | 2025-03-24 15:13 | XMS_ITS | Encounter Summary ---
Author Organization [facility] and [facility] Address [address] [place] [address] Care Team Providers Care Basketball Referee Name Role Phone Caitlyn Bowie MD Primary Care Provider +1- [phone] Encounter Details Date Type Department Care Team (Late st Contact Info) Description 09/15/2020 Scanned Document INTERFACE DEFAULT [address] [place] [address] System, Provider Not In Social History Tobacco [...] [facility] 240 [facility] Building [address] [place] [address] Ronald Mills MD [address] [place] [address] [address] [place] [address] documented as of this encounter Visit Diagnoses Not on filedocumented in this encounter Additional Health Concerns Infection Onset Date Last Indicated Resolved Time COVID-19 03/05/2022 03/05/2022 03/15/2022 7:18 PM EDT Assessment Noted Time PHQ-9 Depression Total Score: 2 11/07/19 19 2:06 PM EDT documented as of this encounter Care Teams Basketball Referee Relationship Specialty Start Date End Date Caitlyn Bowie MD [address] [address] PCP - General Internal Medicine 05/06/21 documented as of this encounter
--- OUTSIDE RECORDS SUMMARY | 2025-03-24 15:13 | XMS_ITS | Encounter Summary ---
Author Organization [facility] and [facility] Address [address] [place] [address] Care Team Providers Care Supervisory Historian Name Role Phone Caitlyn Bowie MD Primary Care Provider +1- [phone] Encounter Details Date Type Department Care Team (Late st Contact Info) Description 05/19/2020 Scanned Document Cancer Center at [address] [address] External, Provider Social History Tobacco Use Types [...] [facility] 240 [facility] Building [address] [place], [place] [address] Ronald Mills MD [address] [place] [address] [address] [place] [address] documented as of this encounter [...] documented as of this encounter Care Teams Supervisory Historian Relationship Specialty Start Date End Date Caitlyn Bowie MD 3400 [facility] 1 [place] [address] PCP - General Internal Medicine 05/06/21 Henry Kelly MD Pulmonary Department 175 [facility], [address] [place] [address] Physician Pulmonary Disease 09/06/17 06/22/20 documented as of this encounter
--- OUTSIDE RECORDS SUMMARY | 2025-03-24 15:13 | XMS_ITS | Encounter Summary ---
Author Organization [facility] and [facility] Address [address] [place] [address] Care Team Providers Care Sheet Rocker Name Role Phone Caitlyn Bowie MD Primary Care Provider +1- [phone] Encounter Details Date Type Department Care Team (Late st Contact Info) Description 05/14/2020 Documentation Hematology Program at [address] [address] Taya Nuno RN Social History Tobacco Use [...] PM EDT Telemedicine Cancer Center at [address] [place] [address] oRnald Mills MD [address] [place] [address] documented as of this encounter Visit Diagnoses Not on filedocumented in this encounter Additional Health Concerns Infection Onset Date Last Indicated Resolved Time COVID-19 03/05/2022 03/05/2022 03/15/2022 7:18 PM EDT Assessment Noted Time PHQ-9 Depression Total Score: 2 11/07/19 19 2:06 PM EDT documented as of this encounter Care Teams Sheet Rocker Relationship Specialty Start Date End Date Caitlyn Bowie MD 3400 [facility] [address] 1 [place] [address] PCP - General Internal Medicine 05/06/21 Henry Kelly MD Pulmonary Department 175 [facility], [address] [place] [address] Physician Pulmonary Disease 09/06/17 06/22/20 documented as of this encounter
--- OUTSIDE RECORDS SUMMARY | 2025-03-24 15:13 | XMS_ITS | Encounter Summary ---
Author Organization [facility] and [facility] Address [address] [place] [address] Care Team Providers Care Jack Prizer Name Role Phone Caitlyn Bowie MD Primary Care Provider +1- [phone] Encounter Details Date Type Department Care Team (Late st Contact Info) Description 06/27/2019 Scanned Document Onco-Oncology Program at [address] [place] [address] Norma Renee MD [address] [place] [address] 2 [place] [address] Social History Tobacco Use [...] PM EDT Telemedicine Cancer Center at [address] [place], [place] [address] Ronald Mills MD 240 [facility] A1 [place] [address] documented as of this encounter Visit Diagnoses Not on filedocumented in this encounter Additional Health Concerns Infection Onset Date Last Indicated Resolved Time COVID-19 03/05/2022 03/05/2022 03/15/2022 7:18 PM EDT Assessment Noted Time PHQ-9 Depression Total Score: 2 11/07/19 19 2:06 PM EDT documented as of this encounter Care Teams Jack Prizer Relationship Specialty Start Date End Date Caitlyn Bowie MD 3400 [facility] 1 [place] [address] PCP - General Internal Medicine 05/06/21 Henry Kelly MD Pulmonary Department 175 [facility], [address] [place] [address] Physician Pulmonary Disease 09/06/17 06/22/20 documented as of this encounter
--- OUTSIDE RECORDS SUMMARY | 2025-03-24 15:13 | XMS_ITS | Encounter Summary ---
Author Organization [facility] Address [address] [place] [address] Care Team Providers Care Bacteriologist Pharmaceutical Name Role Phone Caitlyn Bowie MD Primary Care Provider +1- [phone] Encounter Details Date Type Department Care Team (Late st Contact Info) Description 01/22/2020 Scanned Document [facility] [address] [place] [address] Kerwin Menjivar MD 260 [facility] 3 [place] [address] Social History Tobacco Use Types [...] PM EDT Telemedicine Cancer Center at [address] [place] [address] Ronald Mills MD 240 [facility] [address] [place] [address] documented as of this encounter Visit Diagnoses Not on filedocumented in this encounter Additional Health Concerns Infection Onset Date Last Indicated Resolved Time COVID-19 03/05/2022 03/05/2022 03/15/2022 7:18 PM EDT Assessment Noted Time PHQ-9 Depression Total Score: 2 11/07/19 19 2:06 PM EDT documented as of this encounter Care Teams Bacteriologist Pharmaceutical Relationship Specialty Start Date End Date Caitlyn Bowie MD [address] [address] PCP - General Internal Medicine 05/06/21 Henry Kelly MD Pulmonary Department [address] [place] [address], [address] [place] [address] Physician Pulmonary Disease 09/06/17 06/22/20 documented as of this encounter
--- OUTSIDE RECORDS SUMMARY | 2025-03-24 15:13 | XMS_ITS | Encounter Summary ---
Author Organization [facility] and [facility] Address [address] [place] [address] Care Team Providers Care Clinical Nurse Reviewer Name Role Phone Caitlyn Bowie MD Primary Care Provider +1- [phone] Encounter Details Date Type Department Care Team (Late st Contact Info) Description 06/21/2012 Abstract Head & Neck Cancers Program at [address] [address] Mikel Lloyd MD [address] [place] [phone] (Fax) Social History Tobacco Use Types Packs/Day [...] Campus 240 [facility] [place] [facility] Building [address] [place] [address] Ronald Mills MD 240 [facility] [address] [place] [address] documented as of this encounter Visit Diagnoses Not on filedocumented in this encounter Additional Health Concerns Infection Onset Date Last Indicated Resolved Time COVID-19 03/05/2022 03/05/2022 03/15/2022 7:18 PM EDT documented as of this encounter Care Teams Clinical Nurse Reviewer Relationship Specialty Start Date End Date Caitlyn Bowie MD 3400 [facility] 1 [place] [address] PCP - General Internal Medicine 05/06/21 Henry Kelly MD Pulmonary Department [address] [place] [address], [address] [place] [address] Physician Pulmonary Disease 09/06/17 06/22/20 documented as of this encounter
--- OUTSIDE RECORDS SUMMARY | 2025-03-24 15:13 | XMS_ITS | Encounter Summary ---
Author Organization [facility] Address [address] [place] [address] Care Team Providers Care Hand Riveter Name Role Phone Caitlyn Bowie MD Primary Care Provider +1- [phone] Encounter Details Date Type Department Care Team (Late st Contact Info) Description 07/08/2020 Scanned Document [facility] Health Information Management [address] [place] [address] External, Provider Social History Tobacco Use Types [...] [facility] 240 [facility] Building [address] [place], [place] [phone] Ronald Mills MD [address] [place] [address] [address]1 [place] [address] documented as of this encounter [...] End Date Caitlyn Bowie MD [address] [address] PCP - General Internal Medicine 05/06/21 documented as of this encounter
--- OUTSIDE RECORDS SUMMARY | 2025-03-24 15:13 | XMS_ITS | Encounter Summary ---
Author Organization [facility] Address [address] [place] [address] Care Team Providers Care Sprinkler Fitter Helper Name Role Phone Caitlyn Bowie MD Primary Care Provider +1- [phone] Encounter Details Date Type Department Care Team (Late st Contact Info) Description 09/16/2020 Scanned Document [facility] Health Information Management [address] [place] [address] External, Provider Social History Tobacco Use Types [...] [facility] 240 [facility] Building [address] [place], [place] [id number] Ronald Mills MD [address] [place] [address] [address] [place] [phone] documented as of this encounter Procedures Procedure [...] documented as of this encounter Care Teams Sprinkler Fitter Helper Relationship Specialty Start Date End Date Caitlyn Bowie MD [address] [address] PCP - General Internal Medicine 05/06/21 documented as of this encounter
--- OUTSIDE RECORDS SUMMARY | 2025-03-24 15:13 | XMS_ITS | Encounter Summary ---
Author Organization [facility] and [facility] Address [address] [place] [address] Care Team Providers Care Behavioral Health Rn Name Role Phone Caitlyn Bowie MD Primary Care Provider +1- [phone] Encounter Details Date Type Department Care Team (Late Contact Info) Description 09/09/2020 Scanned Document [facility] Health Information Management [address] [place] [address] External, Provider Social History Tobacco Use [...] [facility] 240 [facility] Building [address] [place], [place] [phone] Ronald Mills MD [address] [place] [address] [address]1 [place] [address] documented as of this encounter [...] End Date Caitlyn Bowie MD [address] [address] PCP - General Internal Medicine 05/06/21 documented as of this encounter
--- OUTSIDE RECORDS SUMMARY | 2025-03-24 15:13 | XMS_ITS | Encounter Summary ---
Author Organization [facility] Address [address] [place] [address] Care Team Providers Care Supervisor [employer] Name Role Phone Caitlyn Bowie MD Primary Care Provider +1- [phone] Encounter Details Date Type Department Care Team (Late st Contact Info) Description 08/29/2019 Scanned Document Cancer Center at [address] [address] External, Provider Social History Tobacco Use Types [...] Center at [facility] 240 [facility] Building [address] [place], [place] [phone] Ronald Mills MD [address] [place] [address] [address]1 [place] [address] documented as of this encounter [...] as of this encounter Care Teams Supervisor [employer] Optical Elements Relationship Specialty Start Date End Date Caitlyn Bowie MD 3400 [facility] 1 [place] [address] PCP - General Internal Medicine 05/06/21 Henry Kelly MD Pulmonary Department 175 [facility], [address] [place] [address] Physician Pulmonary Disease 09/06/17 06/22/20 documented as of this encounter
--- OUTSIDE RECORDS SUMMARY | 2025-03-24 15:13 | XMS_ITS | Encounter Summary ---
Author Organization [facility] Address 20 [place] [address] Care Team Providers Care Commercial Announcer Name Role Phone Caitlyn Bowie MD Primary Care Provider +1- [phone] Encounter Details Date Type Department Care Team (Late st Contact Info) Description 09/07/2020 Scanned Document Cardiovascular Medicine at [address] [place] [phone] Norma Renee MD [address] [place] [phone] Social History Tobacco Use Types Packs/Day Years [...] PM EDT Telemedicine Cancer Center at [address] [place] [address] Ronald Mills MD [address] [place] [address] [address] [place] [address] documented as of this encounter Visit Diagnoses Not on filedocumented in this encounter Additional Health Concerns Infection Onset Date Last Indicated Resolved Time COVID-19 03/05/2022 03/05/2022 03/15/2022 7:18 PM EDT Assessment Noted Time PHQ-9 Depression Total Score: 2 11/07/19 19 2:06 PM EDT documented as of this encounter Care Teams Commercial Announcer Relationship Specialty Start Date End Date Caitlyn Bowie MD [address] [address] PCP - General Internal Medicine 05/06/21 documented as of this encounter
--- OUTSIDE RECORDS SUMMARY | 2025-03-24 15:13 | XMS_ITS | Encounter Summary ---
Author Organization [facility] Address [address] [place] [address] Care Team Providers Care Medical Lead Name Role Phone Caitlyn Bowie MD Primary Care Provider +1- [phone] Encounter Details Date Type Department Care Team (Late st Contact Info) Description 12/03/2019 Scanned Document [facility] Health Information Management [address] [place] [address] External, Provider Social History Tobacco Use Types [...] [facility] 240 [facility] Building [address] [place] [address] Ronald Mills MD [address] [place] [address] [address]1 [place] [address] documented as of this encounter Visit Diagnoses Not on filedocumented in this encounter Additional Health Concerns Infection Onset Date Last Indicated Resolved Time COVID-19 03/05/2022 03/05/2022 03/15/2022 7:18 PM EDT Assessment Noted Time PHQ-9 Depression Total Score: 2 11/07/19 19 2:06 PM EDT documented as of this encounter Care Teams Medical Lead Relationship Specialty Start Date End Date Caitlyn Bowie MD 3400 [facility] 1 [place] [address] PCP - General Internal Medicine 05/06/21 Henry Kelly MD Pulmonary Department 175 [facility], [address] [place] [address] Physician Pulmonary Disease 09/06/17 06/22/20 documented as of this encounter
--- OUTSIDE RECORDS SUMMARY | 2025-03-24 15:13 | XMS_ITS | Encounter Summary ---
Author Organization [facility] and [facility] Address [address] [place] [address] Care Team Providers Care Neon Light Installer Name Role Phone Caitlyn Bowie MD Primary Care Provider +1- [phone] Encounter Details Date Type Department Care Team (Late st Contact Info) Description 01/28/2013 Scanned Document Thoracic Oncology Program at [address] [address] Solo Henry MD [address] [place] [address] Social History Tobacco Use Types Packs/Day [...] [facility] 240 [facility] Building [address] [place], [place] [address] Ronald Mills MD 240 [facility] Max [address] [place] [address] documented as of this encounter Visit Diagnoses Not on filedocumented in this encounter Additional Health Concerns Infection Onset Date Last Indicated Resolved Time COVID-19 03/05/2022 03/05/2022 03/15/2022 7:18 PM EDT documented as of this encounter Care Teams Neon Light Installer Relationship Specialty Start Date End Date Caitlyn Bowie MD 3400 [facility] Max 1 [place] [address] PCP - General Internal Medicine 05/06/21 Henry Kelly MD Pulmonary Department 175 [facility], [address] [place] [address] Physician Pulmonary Disease 09/06/17 06/22/20 documented as of this encounter
--- OUTSIDE RECORDS SUMMARY | 2025-03-24 15:13 | XMS_ITS | Encounter Summary ---
Author Organization [facility] and [facility] Address [address] [place] [address] Care Team Providers Care Visual Merchandising Specialist Name Role Phone Caitlyn Bowie MD Primary Care Provider +1- [phone] Encounter Details Date Type Department Care Team (Late st Contact Info) Description 09/15/2020 Scanned Document Cancer Center at [address] [address] External, Provider Social History Tobacco Use Types [...] 240 [facility] [address] [place], [place] [phone] Ronald Mills MD [address] [place] [address] [address] [place] [address] documented as of this encounter [...] as of this encounter Care Teams Visual Merchandising Specialist Relationship Specialty Start Date End Date Caitlyn Bowie MD [address] [address] PCP - General Internal Medicine 05/06/21 documented as of this encounter
--- OUTSIDE RECORDS SUMMARY | 2025-03-24 15:13 | XMS_ITS | Encounter Summary ---
Author Organization [facility] and [facility] Address [address] [place] [address] Care Team Providers Care Car Sales Associate Name Role Phone aCitlyn Bowie MD Primary Care Provider +1- [phone] Encounter Details Date Type Department Care Team (Late st Contact Info) Description 12/16/2016 Scanned Document [facility] Health Information Management [address] [place] [address] External, Provider Social History Tobacco Use Types [...] Cancer Center at [facility] 240 [facility] Building [address] [place], [place] [address] Ronald Mills MD 240 [facility] Max [address] [place] [address] documented as of this encounter [...] as of this encounter Care Teams Car Sales Associate Relationship Specialty Start Date End Date Caitlyn Bowie MD 3400 [facility] 1 [place] [address] PCP - General Internal Medicine 05/06/21 Henry Kelly MD Pulmonary Department 175 [facility], [address] [place] [address] Physician Pulmonary Disease 09/06/17 06/22/20 documented as of this encounter
--- OUTSIDE RECORDS SUMMARY | 2025-03-24 15:13 | XMS_ITS | Encounter Summary ---
Author Organization [facility] and [facility] Address [address] [place] [address] Care Team Providers Care Manager Production Name Role Phone Caitlyn Bowie MD Primary Care Provider +1- [phone] Encounter Details Date Type Department Care Team (Late Contact Info) Description 09/15/2020 Scanned Document [facility] Health Information Management [address] [place] [address] External, Provider Social History Tobacco Use Types [...] [facility] Center at [facility] 240 [facility] Building [address] [place], [place] [id number] Ronald Mills MD [address] [place] [address] [address]1 [place] [address] documented as of this encounter [...] as of this encounter Care Teams Manager Production Relationship Specialty Start Date End Date aCitlyn Bowie MD [address] [address] PCP - General Internal Medicine 05/06/21 documented as of this encounter
--- OUTSIDE RECORDS SUMMARY | 2025-03-24 15:13 | XMS_ITS | Encounter Summary ---
Author Organization [facility] and [facility] Address [address] [place] [address] Care Team Providers Care Superintendent Plant Name Role Phone Caitlyn Bowie MD Primary Care Provider +1- [phone] Encounter Details Date Type Department Care Team (Late st Contact Info) Description 12/16/2016 Scanned Document [facility] Health Information Management [address] [place] [address] External, Provider Social History Tobacco Use [...] [facility] Center at [facility] 240 [facility] Building [address] [place], [place] [address] Ronald Mills MD 240 [facility] [address] [place] [address] documented as of this encounter [...] as of this encounter Care Teams Superintendent Plant Relationship Specialty Start Date End Date Caitlyn Bowie MD 3400 [facility] 1 [place] [address] PCP - General Internal Medicine 05/06/21 Henry Kelly MD Pulmonary Department 175 [facility], [address] [place] [address] Physician Pulmonary Disease 09/06/17 06/22/20 documented as of this encounter
--- OUTSIDE RECORDS SUMMARY | 2025-03-24 15:13 | XMS_ITS | Encounter Summary ---
Author Organization [facility] and [facility] Address [address] [place] [address] Care Team Providers Care Catia Designer Name Role Phone Caitlyn Bowie MD Primary Care Provider +1- [phone] Encounter Details Date Type Department Care Team (Late st Contact Info) Description 11/26/2019 Scanned Document Cancer Center at [address] [address] External, Provider Social History Tobacco Use Types [...] Center at [facility] 240 [facility] Building [address] [place], [place] [address] Ronald Mills MD [address] [place] [address] [address] [place] [address] documented as of this encounter [...] documented as of this encounter Care Teams Catia Designer Relationship Specialty Start Date End Date Caitlyn Bowie MD 3400 [facility] 1 [place] [address] PCP - General Internal Medicine 05/06/21 Henry Kelly MD Pulmonary Department 175 [facility], [address] [place] [address] Physician Pulmonary Disease 09/06/17 06/22/20 documented as of this encounter
--- OUTSIDE RECORDS SUMMARY | 2025-03-24 15:13 | XMS_ITS | Encounter Summary ---
Author Organization [facility] and [facility] Address [address] [place] [address] Care Team Providers Care Revising Clerk Name Role Phone Caitlyn Bowie MD Primary Care Provider +1- [phone] Encounter Details Date Type Department Care Team (Late st Contact Info) Description 06/27/2019 Scanned Document Onco-Oncology Program at [address] [place] [address] Norma Renee MD [address] [place] [address] 2 [place] [address] Social History Tobacco Use Types [...] PM EDT Telemedicine Cancer Center at [address] [place], [place] [phone] Ronald Mills MD 240 [facility] A1 [place] [address] documented as of this encounter Visit Diagnoses Not on filedocumented in this encounter Additional Health Concerns Infection Onset Date Last Indicated Resolved Time COVID-19 03/05/2022 03/05/2022 03/15/2022 7:18 PM EDT Assessment Noted Time PHQ-9 Depression Total Score: 2 11/07/19 19 2:06 PM EDT documented as of this encounter Care Teams Revising Clerk Relationship Specialty Start Date End Date Caitlyn Bowie MD 3400 [facility] 1 [place] [address] PCP - General Internal Medicine 05/06/21 Henry Kelly MD Pulmonary Department 175 [facility], [address] [place] [address] Physician Pulmonary Disease 09/06/17 06/22/20 documented as of this encounter
--- OUTSIDE RECORDS SUMMARY | 2025-03-24 15:13 | XMS_ITS | Encounter Summary ---
Author Organization [facility] and [facility] Address [address] [place] [address] Care Team Providers Care Crab Steamer Name Role Phone Caitlyn Bowie MD Primary Care Provider +1- [phone] Encounter Details Date Type Department Care Team (Late st Contact Info) Description 07/01/2019 Scanned Document Onco-Oncology Program at [address] [place] [address] Norma Renee MD [address] [place] [address] 2 [place] [address] Social History Tobacco Use Types [...] PM EDT Telemedicine Cancer Center at [address] [place], [place] [phone] Ronald Mills MD 240 [facility] A1 [place] [address] documented as of this encounter Visit Diagnoses Not on filedocumented in this encounter Additional Health Concerns Infection Onset Date Last Indicated Resolved Time COVID-19 03/05/2022 03/05/2022 03/15/2022 7:18 PM EDT Assessment Noted Time PHQ-9 Depression Total Score: 2 11/07/19 19 2:06 PM EDT documented as of this encounter Care Teams Crab Steamer Relationship Specialty Start Date End Date Caitlyn Bowie MD 3400 [facility] 1 [place] [address] PCP - General Internal Medicine 05/06/21 Henry Kelly MD Pulmonary Department 175 [facility], [address] [place] [address] Physician Pulmonary Disease 09/06/17 06/22/20 documented as of this encounter
--- OUTSIDE RECORDS SUMMARY | 2025-03-24 15:13 | XMS_ITS | Encounter Summary ---
Author Organization [facility] and [facility] Address [address] [place] [address] Care Team Providers Care Toll Transmission Worker Name Role Phone Caitlyn Bowie MD Primary Care Provider +1- [phone] Encounter Details Date Type Department Care Team (Latest Contact Info) Description 04/15/2013 Transcribed Orders [facility] [address] [place] [address] Tian Atwood MD 280 [facility] 102 [place] [address] Unspecified hypothyroidism (Primary Dx) Social [...] Cancer Center at [facility] [address] [facility] [address] [place] [address] Ronald Mills MD 240 [facility] A1 [place] [address] documented as of this encounter Results * Copper, serum total (YH) (04/15/2013 4:31 PM EDT) Copper, Serum Total SEE BELOW [facility] Comment: Test Result Flag Unit RefValue Copper, S 1.35 mcg/mL 0.75-1.45 04/15/2013 4:31 PM EDT us Tian Atwood MD LAB BLOOD ORDERABLES Final R esult [facility] [address] [place] [address] documented in this encounter Visit Diagnoses Diagnosis Unspecified hypothyroidism- Primary documented in this encounter Additional Health Concerns Infection Onset Date Last Indicated Resolved Time COVID-19 03/05/2022 03/05/2022 03/15/2022 7:18 PM EDT documented as of this encounter Care Teams Toll Transmission Worker Relationship Specialty Start Date End Date Caitlyn Bowie MD 3400 [facility] 1 [place] [address] PCP - General Internal Medicine 05/06/21 Henry Kelly MD Pulmonary Department 175 [facility], [address] [place] [address] Physician Pulmonary Disease 09/06/17 06/22/20 documented as of this encounter
--- OUTSIDE RECORDS SUMMARY | 2025-03-24 15:13 | XMS_ITS | Encounter Summary ---
Author Organization [facility] and [facility] Address [address] [place] [address] Care Team Providers Care Nuclear Officer Name Role Phone Caitlyn Bowie MD Primary Care Provider +1- [phone] Encounter Details Date Type Department Care Team (Late st Contact Info) Description 12/16/2016 Scanned Document [facility] Health Information Management [address] [place] [address] External, Provider Social History Tobacco Use Types [...] [facility] 240 [facility] Building [address] [place], [place] [address] Ronald Mills MD 240 [facility] Max [address] [place] [address] documented as of this encounter [...] as of this encounter Care Teams Nuclear Officer Relationship Specialty Start Date End Date Caitlyn Bowie MD 3400 [facility] 1 [place] [address] PCP - General Internal Medicine 05/06/21 Henry Kelly MD Pulmonary Department 175 [facility], [address] [place] [address] Physician Pulmonary Disease 09/06/17 06/22/20 documented as of this encounter
--- OUTSIDE RECORDS SUMMARY | 2025-03-24 15:13 | XMS_ITS | Encounter Summary ---
Author Organization [facility] and [facility] Address [address] [place] [address] Care Team Providers Care Aba Tutor Name Role Phone Caitlyn Bowie MD Primary Care Provider +1- [phone] Encounter Details Date Type Department Care Team (Late st Contact Info) Description 02/20/2017 Scanned Document [facility] Health Information Management [address] [place] [address] External, Provider Social History Tobacco Use Types [...] [facility] Center at [facility] 240 [facility] Building [address] [place], [place] [address] Ronald Mills MD 240 [facility] Max [address] [place] [address] documented as of this encounter [...] documented as of this encounter Care Teams Aba Tutor Relationship Specialty Start Date End Date Caitlyn Bowie MD 3400 [facility] Max 1 [place] [address] PCP - General Internal Medicine 05/06/21 Henry Kelly MD Pulmonary Department 175 [facility], [address] [place] [address] Physician Pulmonary Disease 09/06/17 06/22/20 documented as of this encounter
--- OUTSIDE RECORDS SUMMARY | 2025-03-24 15:13 | XMS_ITS | Clinical Summary ---
Author Organization [facility] Address [address] [place] [address] Care Team Providers Care Appliance Painter And Refinisher Name Role Phone Brennan Burnett MD Primary Care Provider [phone] Allergies Active Allergy Reactions Criticality Noted Date [...] age to complete this topic Care Teams Appliance Painter And Refinisher Relationship Specialty Start Date End Date Brennan Burnett MD [address] [place] [address] PCP - General Internal Medicine 07/06/20
--- OUTSIDE RECORDS SUMMARY | 2025-03-24 15:13 | XMS_ITS | Encounter Summary ---
Author Organization [facility] Address [address] [place] [address] Care Team Providers Care Electrical Tester Name Role Phone Caitlyn Bowie MD Primary Care Provider +1- [phone] Encounter Details Date Type Department Care Team (Late st Contact Info) Description 11/29/2019 Scanned Document [facility] Health Information Management [address] [place] [address] External, Provider Social History Tobacco Use Types [...] [facility] 240 [facility] Building [address] [place], [place] [address] Ronald Mills MD [address] [place] [address] [address] [place] [address] documented as of this encounter [...] as of this encounter Care Teams Electrical Tester Relationship Specialty Start Date End Date Caitlyn Bowie MD 3400 [facility] 1 [place] [address] PCP - General Internal Medicine 05/06/21 Henry Kelly MD Pulmonary Department 175 [facility], [address] [place] [address] Physician Pulmonary Disease 09/06/17 06/22/20 documented as of this encounter
--- OUTSIDE RECORDS SUMMARY | 2025-03-24 15:13 | XMS_ITS | Encounter Summary ---
Author Organization [facility] and [facility] Address [address] [place] [address] Care Team Providers Care Painting Worker Name Role Phone Caitlyn Bowie MD Primary Care Provider +1- [phone] Encounter Details Date Type Department Care Team (Late st Contact Info) Description 02/20/2017 Scanned Document [facility] Health Information Management [address] [place] [address] External, Provider Social History Tobacco Use Types [...] Cancer Center at [facility] 240 [facility] Building [address] [place], [place] [address] Ronald Mills MD 240 [facility] Max [address] [place] [address] documented as of this encounter [...] as of this encounter Care Teams Painting Worker Relationship Specialty Start Date End Date Caitlyn Bowie MD 3400 [facility] 1 [place] [address] PCP - General Internal Medicine 05/06/21 Henry Kelly MD Pulmonary Department 175 [facility], [address] [place] [address] Physician Pulmonary Disease 09/06/17 06/22/20 documented as of this encounter
--- OUTSIDE RECORDS SUMMARY | 2025-03-24 15:14 | XMS_ITS | Encounter Summary ---
Author Organization [facility] and [facility] Address [address] [place] [address] Care Team Providers Care Property Disposal Officer Name Role Phone Caitlyn Bowie MD Primary Care Provider +1- [phone] Encounter Details Date Type Department Care Team (Late st Contact Info) Description 08/21/2017 Scanned Document [facility] Health Information Management [address] [place] [address] External, Provider Social History Tobacco Use Types [...] [facility] 240 [facility] Building [address] [place], [place] [address] Ronald Mills MD [address] [place] [address] [address] [place] [address] documented as of this encounter [...] as of this encounter Care Teams Property Disposal Officer Relationship Specialty Start Date End Date Caitlyn Bowie MD 3400 [facility] 1 [place] [address] PCP - General Internal Medicine 05/06/21 Henry Kelly MD Pulmonary Department 175 [facility], [address] [place] [address] Physician Pulmonary Disease 09/06/17 06/22/20 documented as of this encounter
--- OUTSIDE RECORDS SUMMARY | 2025-03-24 15:14 | XMS_ITS | Encounter Summary ---
Author Organization [facility] and [facility] Address [address] [place] [address] Care Team Providers Care Cloth Carrier Name Role Phone Caitlyn Bowie MD Primary Care Provider +1- [phone] Encounter Details Date Type Department Care Team (Late st Contact Info) Description 04/16/2021 Scanned Document INTERFACE DEFAULT [address] [place] [address] System, Provider Not In Social History Tobacco [...] [facility] at [facility] 240 [facility] Building [address] [place], [place] [address] Ronald Mills MD [address] [place] [address] [address] [place] [address] documented as of this encounter [...] as of this encounter Care Teams Cloth Carrier Relationship Specialty Start Date End Date Caitlyn Bowie MD [facility] [address] [address] PCP - General Internal Medicine 05/06/21 documented as of this encounter
--- OUTSIDE RECORDS SUMMARY | 2025-03-24 15:14 | XMS_ITS | Encounter Summary ---
Author Organization [facility] Address [address] [place] [address] Care Team Providers Care Media Center Director School Name Role Phone Caitlyn Bowie MD Primary Care Provider +1- [phone] Encounter Details Date Type Department Care Team (Late st Contact Info) Description 04/22/2021 Scanned Document INTERFACE DEFAULT [address] [place] [address] System, Provider Not In Social History Tobacco [...] Cancer Center at [facility] 240 [facility] Building [address] [place], [place] [address] Ronald Mills MD [address] [place] [address] [address] [place] [address] documented as of this encounter [...] as of this encounter Care Teams Media Center Director School Relationship Specialty Start Date End Date Caitlyn Bowie MD [facility] [address] [address] PCP - General Internal Medicine 05/06/21 documented as of this encounter
--- OUTSIDE RECORDS SUMMARY | 2025-03-24 15:14 | XMS_ITS | Encounter Summary ---
Author Organization [facility] and [facility] Address [address] [place] [address] Care Team Providers Care Center Director Lead Teacher Name Role Phone Caitlyn Bowie MD Primary Care Provider +1- [phone] Encounter Details Date Type Department Care Team (Late st Contact Info) Description 04/21/2021 Scanned Document INTERFACE DEFAULT [address] [place] [address] System, Provider Not In Social History Tobacco [...] [facility] 240 [facility] Building [address] [place], [place] [address] Ronald Mills MD [address] [place] [address] [address] [place] [address] documented as of this encounter [...] Start Date End Date Caitlyn Bowie MD [facility] [address] [address] PCP - General Internal Medicine 05/06/21 documented as of this encounter
--- OUTSIDE RECORDS SUMMARY | 2025-03-24 15:14 | XMS_ITS | Encounter Summary ---
Author Organization [facility] and [facility] Address [address] [place] [address] Care Team Providers Care Squeegee Tender Name Role Phone Caitlyn Bowie MD Primary Care Provider +1- [phone] Encounter Details Date Type Department Care Team (Late st Contact Info) Description 04/26/2017 Scanned Document Cardiovascular Medicine at [address] [place] [address] Norma Renee MD [address] [place] [phone] Social History Tobacco Use Types Packs/Day Years [...] PM EDT Telemedicine Cancer Center at [address] [place], [place] [phone] Ronald Mills MD [address] [place] [address] [address] [place] [address] documented as of this encounter Visit Diagnoses Not on filedocumented in this encounter Additional Health Concerns Infection Onset Date Last Indicated Resolved Time COVID-19 03/05/2022 03/05/2022 03/15/2022 7:18 PM EDT documented as of this encounter Care Teams Squeegee Tender Relationship Specialty Start Date End Date Caitlyn Bowie MD 3400 [facility] 1 [place] [address] PCP - General Internal Medicine 05/06/21 Henry Kelly MD Pulmonary Department 175 [facility], [address] [place] [address] Physician Pulmonary Disease 09/06/17 06/22/20 documented as of this encounter
--- OUTSIDE RECORDS SUMMARY | 2025-03-24 15:14 | XMS_ITS | Encounter Summary ---
Author Organization [facility] and [facility] Address [address] [place] [address] Care Team Providers Care Offline Editor Name Role Phone Caitlyn Bowie MD Primary Care Provider +1- [phone] Encounter Details Date Type Department Care Team (Late st Contact Info) Description 06/07/2017 Scanned Document [facility] Health Information Management [address] [place] [address] External, Provider Social History Tobacco Use Types [...] [facility] 240 [facility] Building [address] [place], [place] [address] Ronald Mills MD [address] [place] [address] [address]1 [place] [address] documented as of this encounter [...] documented as of this encounter Care Teams Offline Editor Relationship Specialty Start Date End Date Caitlny Bowie MD 3400 [facility] 1 [place] [address] PCP - General Internal Medicine 05/06/21 Henry Kelly MD Pulmonary Department 175 [facility], [address] [place] [address] Physician Pulmonary Disease 09/06/17 06/22/20 documented as of this encounter
--- OUTSIDE RECORDS SUMMARY | 2025-03-24 15:14 | XMS_ITS | Encounter Summary ---
Author Organization [facility] and [facility] Address [address] [place] [address] Care Team Providers Care Project Coordinator Name Role Phone Caitlyn Bowie MD Primary Care Provider +1- [phone] Encounter Details Date Type Department Care Team (Late st Contact Info) Description 08/09/2017 Scanned Document Cardiovascular Medicine at [address] [place] [address] System, Provider Not In Social History Tobacco [...] at [facility] 240 [facility] Building [address] [place] [address] Ronald Mills MD 240 [facility] Max [address] [place] [address] documented as of this encounter [...] as of this encounter Care Teams Project Coordinator Relationship Specialty Start Date End Date Caitlyn Bowie MD [address] [facility] Max 1 [place] [address] PCP - General Internal Medicine 05/06/21 Henry Kelly MD Pulmonary Department 175 [facility], [address] [place] [address] Physician Pulmonary Disease 09/06/17 06/22/20 documented as of this encounter
--- OUTSIDE RECORDS SUMMARY | 2025-03-24 15:14 | XMS_ITS | Encounter Summary ---
Author Organization [facility] Address [address] [place] [address] Care Team Providers Care Seed District Sales Manager Name Role Phone Caitlyn Bowie MD Primary Care Provider +1- [phone] Encounter Details Date Type Department Care Team (Late st Contact Info) Description 03/01/2017 Scanned Document Onco-Oncology Program at [address] [place] [address] Norma Renee MD [address] [place] [address] 2 [place] [phone] Social History Tobacco Use Types Packs/Day Years [...] PM EDT Telemedicine Cancer Center at [address] [place] [address] Ronald Mills MD 240 [facility] A1 [place] [address] documented as of this encounter Visit Diagnoses Not on filedocumented in this encounter Additional Health Concerns Infection Onset Date Last Indicated Resolved Time COVID-19 03/05/2022 03/05/2022 03/15/2022 7:18 PM EDT documented as of this encounter Care Teams Seed District Sales Manager Relationship Specialty Start Date End Date Caitlyn Bowie MD 3400 [facility] Max 1 [place] [address] PCP - General Internal Medicine 05/06/21 Henry Kelly MD Pulmonary Department 175 [facility], [address] [place] [address] Physician Pulmonary Disease 09/06/17 06/22/20 documented as of this encounter
--- OUTSIDE RECORDS SUMMARY | 2025-03-24 15:14 | XMS_ITS | Encounter Summary ---
Author Organization [facility] and [facility] Address [address] [place] [address] Care Team Providers Care Program Management Manager Name Role Phone Caitlyn Bowie MD Primary Care Provider +1- [phone] Encounter Details Date Type Department Care Team (Late st Contact Info) Description 04/12/2021 Scanned Document INTERFACE DEFAULT [address] [place] [address] System, Provider Not In Social History Tobacco [...] [facility] Center at [facility] 240 [facility] Building [address] [place], [place] [phone] Ronald Mills MD [address] [place] [address] [address] [place] [address] documented as of this encounter [...] of this encounter Care Teams Program Management Manager Relationship Specialty Start Date End Date Caitlyn Bowie MD [address] [address] PCP - General Internal Medicine 05/06/21 documented as of this encounter
--- OUTSIDE RECORDS SUMMARY | 2025-03-24 15:14 | XMS_ITS | Encounter Summary ---
Author Organization [facility] and [facility] Address [address] [place] [address] Care Team Providers Care Produce Shipper Name Role Phone Caitlyn Bowie MD Primary Care Provider +1- [phone] Encounter Details Date Type Department Care Team (Late st Contact Info) Description 02/21/2017 Scanned Document [facility] Health Information Management [address] [place] [address] External, Provider Social History Tobacco Use Types [...] at [facility] 240 [facility] [address] [place], [place] [phone] Ronald Mills MD 240 [facility] Max [address] [place] [address] documented as of this encounter [...] as of this encounter Care Teams Produce Shipper Relationship Specialty Start Date End Date Caitlyn Bowie MD 3400 [facility] Max 1 [place] [address] PCP - General Internal Medicine 05/06/21 Henry Kelly MD Pulmonary Department 175 [facility], [address] [place] [address] Physician Pulmonary Disease 09/06/17 06/22/20 documented as of this encounter
--- OUTSIDE RECORDS SUMMARY | 2025-03-24 15:14 | XMS_ITS | Patient Health Record ---
Author Organization [facility] Address [address] [facility] [address] [place] [address] Care Team Providers Care Foundry Patternmaker Name Role Phone EVELIN RAMSAY Primary Care Provider Yenny Hou Unavailable [phone] Allergies Allergen (clinical drug ingredient) Drug/Non Drug [...] UROBILINOGEN Neg BILIRUBIN Neg BLOOD Neg Urinalysis, Complete-[id number] Reviewed date:05/04/2024 11:35:42 PM Interpretation: Performing Lab:[facility], [address] [facility], [place], Phone - [phone], Director - Arely Notes/Report: Specific [place] 1.009 1.005-1.030 pH 6.5 5.0-7.5 Urine-Color Yellow [...] Bacteria None seen None seen/Few Urine Culture, Routine-[id number] Reviewed date:05/04/2024 11:35:22 PM Interpretation: Performing Lab:[facility], [address] [place] [address], Phone - [phone], Director - Arely Notes/Report: Urine Culture, Routine Final report Result 1 Culture shows less than 10,000 colony forming units of bacteria per milliliter of urine. This colony count is not generally considered to be clinically significant. PDF Report Reviewed date:05/04/2024 11:35:04 PM Interpretation: Performing Lab:[facility], [address] [place] [address], Phone - [phone], Director - Arely Notes/Report: Urinalysis Reviewed date:07/09/2024 [...] 25MCG 1 ORAL daily; Durati on: -3 [facility] 06/10/2014 Active ZyrTEC Allergy 10MG [...] 50MG 1 ORAL at bedtime; Duration: -3 [facility] 06/10/2014 Active Meclizine HCl 25 MG 1 tablet as needed Orally [facility] 06/10/2014 Active Albuterol Sulfate (2.5 MG/3ML)0.083% Inhalation 4 x a day prn 06/10/2014 Active Valium 5MG 1 tablet as needed O RAL at bedtime, 1/2 tab prn during the day [facility] 06/10/2014 Active Social History Tobacco [...] Status Risk Notes Problem Postmenopausal atrophic vaginitis (49955898) Postmenopausal atrophic vaginitis (N95.2) Active confirmed Problem Age-related osteoporosis (144117344) Age-related osteoporosis without current pathological fracture (M81.0) Active confirmed Problem Urgent desire to urinate (70149927) Urgency of urination (R39.15) Active confirmed Problem 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 Problem Chronic systolic heart failure (403747651) Chronic systolic (congestive) heart failure (I50.22) Active confirmed Problem Chronic obstructive pulmonary disease (61224808) Chronic obstructive pulmonary disease, unspecified (J44.9) Active confirmed Problem Functional urinary incontinence (019310682) Functional 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) Active confirmed Problem Personal history of primary malignant neoplasm of bronchus (669044718) 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) Active confirmed Vital Signs Temperature 97.7 degrees Fahrenheit 07/18/2024 Blood pressure diastolic 62 mm Hg 07/18/2024 Height 63 in 07/18/2024 Blood pressure systolic 102 mm Hg 07/18/2024 Weight 126 lbs 07/18/2024 BMI 22.32 kg/m2 07/18/2024 Encounters Encounter Location Date Provider Diagnosis Total [address] [address] 05/03/2024 Yennydorothy Elizalde Urgency of urination R39.15 and Abscess of vulva N76.[address] [address] 05/10/2024 Yenny Elizalde Abscess of vulva N76 .[address] [address] 05/17/2024 Yenny Elizalde Abscess of vulva N76 .[address] [address] 07/09/2024 Yenny Tonio Urgency of urination R39.15 ; Acute vaginitis N76.0 and Postmenopausal atrophic vaginitis N95.[address] [address] 07/18/2024 Yenny Elizalde Encounter for screening mammogram for malignant neoplasm of breast Z12.31 and Mastodynia N64.[address] [address] 05/10/2024 Yenny Lovettva [facility] [address] [address] 05/13/2024 Yenny Elizalde [facility] [address] [facility] [address] [place] [address] 06/11/2024 Yenny Elizalde Assessments Encounter Date Diagnosis [...] [facility] AND DISCUSSED THIS PAT. [...] Date MEDICARE [address] VEDA NIEVES [id number] SHIRLEY CINDA Self - patient is the insured MEDEX [address] [place] [address] [id number] 3 DANIEL WATSONE Self - patient is [...]
--- OUTSIDE RECORDS SUMMARY | 2025-03-24 15:14 | XMS_ITS | Encounter Summary ---
Author Organization [facility] and [facility] Address 20 [place] [address] Care Team Providers Care Acting Manager Name Role Phone Caitlyn Bowie MD Primary Care Provider +1- [phone] Encounter Details Date Type Department Care Team (Late st Contact Info) Description 04/26/2017 Scanned Document Cardiovascular Medicine at [address] [place] [address] System, Provider Not In Social History Tobacco [...] [facility] [place] 240 [facility] Building [address] [place], [place] [phone] Ronald Mills MD 240 [facility] A1 [place] [address] documented as of this encounter [...] as of this encounter Care Teams Acting Manager Relationship Specialty Start Date End Date Caitlyn Bowie MD 3400 [facility] Max 1 [place] [address] PCP - General Internal Medicine 05/06/21 Henry Kelly MD Pulmonary Department 175 [facility], [address] [place] [address] Physician Pulmonary Disease 09/06/17 06/22/20 documented as of this encounter
--- OUTSIDE RECORDS SUMMARY | 2025-03-24 15:14 | XMS_ITS | Encounter Summary ---
Author Organization [facility] and [facility] Address [address] [place] [address] Care Team Providers Care Human Factors Engineer Name Role Phone Caitlyn Bowie MD Primary Care Provider +1- [phone] Encounter Details Date Type Department Care Team (Late st Contact Info) Description 04/13/2021 Scanned Document INTERFACE DEFAULT [address] [place] [address] System, Provider Not In Social History Tobacco [...] Cancer Center at [facility] 240 [facility] Building [address] [place], [place] [address] Ronald Mills MD [address] [place] [address] [address] [place] [address] documented as of this encounter [...] as of this encounter Care Teams Human Factors Engineer Relationship Specialty Start Date End Date Caitlyn Bowie MD [address] [address] PCP - General Internal Medicine 05/06/21 documented as of this encounter
--- OUTSIDE RECORDS SUMMARY | 2025-03-24 15:14 | XMS_ITS | Encounter Summary ---
Author Organization [facility] Address [address] [place] [address] Care Team Providers Care Utility Locator Name Role Phone Caitlyn Bowie MD Primary Care Provider +1- [phone] Encounter Details Date Type Department Care Team (Late st Contact Info) Description 04/27/2017 Scanned Document [facility] Health Information Management [address] [place] [address] External, Provider Social History Tobacco Use Types [...] at [facility] 240 [facility] Building [address] [place], [place] [phone] Ronald Mills MD 240 [facility] A1 [place] [address] documented as of this encounter Visit Diagnoses Not on filedocumented in this encounter Additional Health Concerns Infection Onset Date Last Indicated Resolved Time COVID-19 03/05/2022 03/05/2022 03/15/2022 7:18 PM EDT documented as of this encounter Care Teams Utility Locator Relationship Specialty Start Date End Date Caitlyn Bowie MD 3400 [facility] 1 [place] [address] PCP - General Internal Medicine 05/06/21 Henry Kelly MD Pulmonary Department 175 [facility], [address] [place] [address] Physician Pulmonary Disease 09/06/17 06/22/20 documented as of this encounter
--- OUTSIDE RECORDS SUMMARY | 2025-03-24 15:14 | XMS_ITS | Clinical Summary ---
Author Organization [address] Address 20 [place] [address] Phone Care Team Providers Care Company Laundry Worker Name Role Phone Caitlyn Bowie MD Primary Care Provider +1- [phone] Allergies Active Allergy Reactions Criticality Noted Date [...] Description 01/20/2025 Telephone [facility] at [address] [address] Ronald Mills MD Triage from Last 3 [...] PM EDT Telemedicine Cancer Center at [address] [place], [place] [address] Ronald Mills MD [address] [place] [address] Rd [address] [place] [address] Health Maintenance Due Date Last Done Comments HIV screening 1958 Shingles vaccine (Shingrix) (1 of 2 - Shingrix (RZV) 2 Dose Standard Series) 1993 RSV Immunization (1 - 1-dose 75+ series) 2018 Lipid disorder screening 03/18/2021 03/18/2016 Influenza vaccine 02/07/2025 06/12/2024, , 05/13/2022, Additional history exists Covid-19 vaccine series ( season) 2025 09/03/2020, 08/06/2020 Diabetes screening 04/05/2025 04/05/2022, 0 [...] mmol/L 04/05/2022 1:43 PM EDT [facility] DEPARTMENT OF LABORATORY MEDICINE [facility] Potassium 4.7 3.3 - 5.3 mmol/L 04/05/2022 1:43 PM EDT [facility] DEPARTMENT OF LABORATORY MEDICINE [facility] Chloride 100 98 - 107 mmol/L 04/05/2022 1:43 PM EDT [facility] DEPARTMENT OF LABORATORY MEDICINE [facility] CO2 30 20 - 30 mmol/L 04/05/2022 1:43 PM EDT [facility] DEPARTMENT OF LABORATORY MED[facility] Anion Gap 8 7 - 17 04/05/2022 1:43 PM EDT [facility] DEPARTMENT OF LABORATORY MEDICINE [facility] Glucose 115(H) 70 - 100 mg/dL 04/05/2022 1:43 PM EDT [facility] DEPARTMENT OF LABORATORY [facility] BUN 16 8 - 23 mg/dL 04/05/2022 1:43 PM EDT [facility] Creatinine 0.89 0.40 - 1.30 mg/dL 04/05/2022 1:43 PM EDT [facility] DEPARTMENT LABORATORY [facility] Calcium 10.5(H) 8.8 - 10.2 mg/dL 04/05/2022 1:43 PM EDT [facility] DEPARTMENT OF LABORATORY [facility] BUN/Creatinine Ratio 18.0 8.0 - 23.0 03/11 1:43 PM EDT [facility]PART[facility]ORAT[facility] Total Protein 7.0 6.6 - 8.7 g/dL 04/05/2022 1:43 PM [facility] DEPARTMENT OF LABORATORY [facility] Albumin 4.2 3.6 - 4.9 g/dL 04/05/2022 1:43 PM T [facility] DEPARTMENT OF LABORATORY [facility] Total Bilirubin 0.6 <=1.2 mg/dL 04/05/2022 1:43 PM [facility] DEPARTMENT LABORATORY [facility] Alkaline Phosphatase 58 9 - 122 U/L 04/05/2022 1:43 PM [facility] DEPARTMENT LABORATORY [facility] Alanine Aminotransferase (ALT) 19 10 - 35 U/L 04/05/2022 1:43 PM [facility] DEPARTMENT OF LABORATORY [facility] Comment:Calcium dobesilate c an cause artificially low ALT results at therapeutic concentrations Aspartate Aminotransferase (AST) 26 10 - 35 U/L 04/05/2022 1:43 PM [facility] DEPARTMENT LABORATORY MEDICINE [facility] Globulin 2.8 2.3 - 3.5 g/dL 04/05/2022 1:43 PM [facility] DEPARTMENT LABORATORY [facility]IC[facility] A/G Ratio 1.5 1.0 - 2.2 04/05/2022 1:43 PM EDT [facility] DEPARTMENT OF LABORATORY MED[facility]INE [facility] AST/ALT Ratio 1.4 See Comment 04/05/2022 1:43 PM EDT [facility] DEPARTMENT OF LABORATORY [facility] Comment: Adult with mild elevations of transaminases (< 5 times upper limit of normal): AST/ALT > 2 suggests alcoholic liver injury AST/ALT < 1 suggests non-alcoholic fatty liver disease (NAFLD) [place] (healthy): AST/ALT can be > 3 on day 0 AST/ALT < 2 by day 5 The thresholds provided focus on the most common etiologies of elevated serum transaminase levels and the associated alteration of AST:ALT ratios; they are not intended to exclude other feasible and clinically appropriate possibilities eGFR (Creatinine) >60 >=60 mL/min/1.7 3m2 04/05/2022 1:43 PM EDT [facility] DEPARTMENT OF LABORATORY [facility] Comment:Estimated glomerular filtration rate (eGFR) [...] MD LAB BLOOD ORDERABLES Final Resul t [facility] [address] [place] [address] * Bone Density Result Scan (05/10/2017) Historical Provider IMG SCAN REPORTS Final Resul t * (ABNORMAL) Lipid panel (03/18/2016 2:55 PM EDT) Cholesterol 229(H) 115 - 199 mg/dL 03/18/2016 8:11 PM EDT [facility] HDL 83 >=40 mg/dL 03/18/2016 8:11 PM EDT [facility] Triglycerides 71 30 - 150 mg/dL 03/18/2016 8:11 PM EDT [facility] Chol/HDL Ratio 2.8 <=5 03/18/2016 8:11 PM EDT [facility] Comment:Cholesterol/HDL rati o cannot be calculated. LDL Calculated 132 See Comment mg/dL 03/18/2016 8:11 PM EDT [facility] Comment: <100: Optimal 100-129: Near optimal/above optimal 130-159: Borderline high risk 160-189: High risk >=190: Very high risk Blood specimen (specimen) Venipuncture / Unknown 03/18/2016 2:55 PM EDT 03/18/2016 3:17 PM EDT Narrative [facility] - 03/18/2016 8:11 PM EDT $18.27 us Sangeeta Garces MD LAB BLOOD ORDERABLES Fin al Result Performing Organization Address City/State/[facility] Co de Phone Number [facility] [address] [place] [address] * MAMMOGRAPHY REPORT (04/25/2013 6:47 AM EDT) 04/25/2013 6:47 AM EDT us Provider Not In System IMG SCAN REPORTS Final Re sult from Last 3 Months or Most Recently Relevant to Health Maintenance Insurance [facility]ICARE [facility] MEDICARE [facility] Advance Directives * Full ACLS (Latest Code Status on File) Date Activated Date Inactivated Comments 12/15/2018 7:13 PM 12/16/2018 6:09 PM * Full Interventions Date Activated Date Inactivated Comments 03/18/2016 6:34 PM 03/19/2016 6:40 PM Care Teams Company Laundry Worker Relationship Specialty Start Date End Date Caitlyn Bowie MD [address] [address] PCP - General Internal Medicine 05/06/21
--- OUTSIDE RECORDS SUMMARY | 2025-03-24 15:14 | XMS_ITS | Encounter Summary ---
Author Organization [facility] Address [address] [place] [address] Care Team Providers Care Tower Climber Name Role Phone Caitlyn Bowie MD Primary Care Provider +1- [phone] Encounter Details Date Type Department Care Team (Late st Contact Info) Description 04/11/2021 Scanned Document [facility] Health Information Management [address] [place] [address] External, Provider Social History Tobacco Use Types [...] Telemedicine Cancer Center at [facility] 240 [facility] Building [address] [place], [place] [phone] Ronald Mills MD [address] [place] [address] [address] [place] [address] documented as of this encounter Visit Diagnoses Not on filedocumented in this encounter Additional Health Concerns Infection Onset Date Last Indicated Resolved Time COVID-19 03/05/2022 03/05/2022 03/15/2022 7:18 PM EDT Assessment Noted Time PHQ-9 Depression Total Score: 2 11/07/19 19 2:06 PM EDT documented as of this encounter Care Teams Tower Climber Relationship Specialty Start Date End Date Caitlyn Bowie MD [address] [address] PCP - General Internal Medicine 05/06/21 documented as of this encounter
--- OUTSIDE RECORDS SUMMARY | 2025-03-24 15:14 | XMS_ITS | Encounter Summary ---
Author Organization [facility] Address [address] [place] [address] Care Team Providers Care Tiltrotor Crew Chief Name Role Phone Caitlyn Bowie MD Primary Care Provider +1- [phone] Encounter Details Date Type Department Care Team (Late st Contact Info) Description 06/27/2019 Scanned Document Onco-Oncology Program at [address] [place] [address] Norma Renee MD [address] [place] [address] 2 [place] [address] Social History Tobacco Use Types [...] PM EDT Telemedicine Cancer Center at [address] [place], [place] [phone] Ronald Mills MD 240 [facility] A1 [place] [address] documented as of this encounter Visit Diagnoses Not on filedocumented in this encounter Additional Health Concerns Infection Onset Date Last Indicated Resolved Time COVID-19 03/05/2022 03/05/2022 03/15/2022 7:18 PM EDT Assessment Noted Time PHQ-9 Depression Total Score: 2 11/07/19 19 2:06 PM EDT documented as of this encounter Care Teams Tiltrotor Crew Chief Relationship Specialty Start Date End Date Caitlyn Bowie MD 3400 [facility] 1 [place] [address] PCP - General Internal Medicine 05/06/21 Henry Kelly MD Pulmonary Department 175 [facility], [address] [place] [address] Physician Pulmonary Disease 09/06/17 06/22/20 documented as of this encounter
--- OUTSIDE RECORDS SUMMARY | 2025-03-24 15:15 | XMS_ITS | Encounter Summary ---
Author Organization [facility] Address [address] [place] [address] Care Team Providers Care Assembler Semiconductor Name Role Phone Caitlyn Bowie MD Primary Care Provider +1- [phone] Encounter Details Date Type Department Care Team (Late st Contact Info) Description 03/15/2021 Scanned Document INTERFACE DEFAULT [address] [place] [address] System, Provider Not In Social History Tobacco [...] [facility] Building [address] [place], [place] [id number] Ronald Mills MD [address] [place] [address] Max [address] [place] [address] documented as [...] Caitlyn Bowie MD [facility] [address] [address] PCP - General Internal Medicine 05/06/21 documented as of this encounter
--- OUTSIDE RECORDS SUMMARY | 2025-03-24 15:15 | XMS_ITS | Encounter Summary ---
Author Organization [facility] Address [address] [place] [address] Care Team Providers Care Science Technicians Name Role Phone Caitlyn Bowie MD Primary Care Provider +1- [phone] Encounter Details Date Type Department Care Team (Late st Contact Info) Description 09/18/2020 Scanned Document INTERFACE DEFAULT [address] [place] [address] System, Provider Not In Social History Tobacco [...] [facility] 240 [facility] Building [address] [place] [address] Ronald Mills MD [address] [place] [address] [address] [place] [address] documented as of this encounter Visit Diagnoses Not on filedocumented in this encounter Additional Health Concerns Infection Onset Date Last Indicated Resolved Time COVID-19 03/05/2022 03/05/2022 03/15/2022 7:18 PM EDT Assessment Noted Time PHQ-9 Depression Total Score: 2 11/07/19 19 2:06 PM EDT documented as of this encounter Care Teams Science Technicians Relationship Specialty Start Date End Date Caitlyn Bowie MD [address] [address] PCP - General Internal Medicine 05/06/21 documented as of this encounter
--- OUTSIDE RECORDS SUMMARY | 2025-03-24 15:15 | XMS_ITS | Encounter Summary ---
Author Organization [facility] and [facility] Address [address] [place] [phone] Care Team Providers Care Cardiology Physician Name Role Phone Caitlyn Bowie MD Primary Care Provider +1- [phone] Encounter Details Date Type Department Care Team (Late st Contact Info) Description 09/01/2017 Scanned Document [facility] Health Information Management [address] [place] [id number] External, Provider Social History Tobacco Use [...] [facility] [address] [facility] [address] [place], [place] [id number] Ronald Mills MD [address] [place] [address] [address] [place] [address] documented as of this encounter [...] documented as of this encounter Care Teams Cardiology Physician Relationship Specialty Start Date End Date Caitlyn Bowie MD [facility]0 [facility] 1 [place] [address] PCP - General Internal Medicine 05/06/21 Henry Kelly MD Pulmonary Department [address] [facility] [place] [address] Physician Pulmonary Disease 09/06/17 06/22/20 documented as of this encounter
--- OUTSIDE RECORDS SUMMARY | 2025-03-24 15:15 | XMS_ITS | Encounter Summary ---
Author Organization [facility] and [facility] Address [address] [place] [phone] Care Team Providers Care Technical Applications Specialist Name Role Phone Caitlyn Bowie MD Primary Care Provider +1- [phone] Encounter Details Date Type Department Care Team (Late st Contact Info) Description 11/29/2017 Scanned Document [facility] Health Information Management [address] [place] [phone] External, Provider Social History Tobacco Use Types [...] at [facility] [address] [facility] [address] [place], [place] [id number] Ronald Mills MD [address] [place] [address] [address] [place] [address] documented as of this encounter [...] as of this encounter Care Teams Technical Applications Specialist Relationship Specialty Start Date End Date Caitlyn Bowie MD [address] [facility] 1 [place] [address] PCP - General Internal Medicine 05/06/21 Henry Kelly MD Pulmonary Department 175 [facility], [address] [place] [address] Physician Pulmonary Disease 09/06/17 06/22/20 documented as of this encounter
--- OUTSIDE RECORDS SUMMARY | 2025-03-24 15:15 | XMS_ITS | Encounter Summary ---
Author Organization [facility] and [facility] Address [address] [place] [phone] Care Team Providers Care Telephonic Nurse Name Role Phone Caitlyn Bowie MD Primary Care Provider +1- [phone] Encounter Details Date Type Department Care Team (Late st Contact Info) Description 02/07/2021 Scanned Document INTERFACE DEFAULT [address] [place] [phone] System, Provider Not In Social History Tobacco [...] [facility] [address] [facility] [address] [place], [place] [phone] Ronald Mills MD [address] [place] [address] [address] [place] [address] documented as of this encounter [...] documented as of this encounter Care Teams Telephonic Nurse Relationship Specialty Start Date End Date Caitlyn Bowie MD [address] [address] PCP - General Internal Medicine 05/06/21 documented as of this encounter
--- OUTSIDE RECORDS SUMMARY | 2025-03-24 15:15 | XMS_ITS | Encounter Summary ---
Author Organization [facility] Address [address] [place] [address] Care Team Providers Care Internal Medicine Nurse Name Role Phone Caitlyn Bowie MD Primary Care Provider +1- [phone] Encounter Details Date Type Department Care Team (Late st Contact Info) Description 10/07/2013 Scanned Document Thoracic Oncology Program at [address] [address] Suzy oKng MD [address] [place] [phone] Social History Tobacco Use Types Packs/Day [...] Center at [facility] [address] [facility] [address] [place], [place] [id number] Ronald Mills MD [address] [facility] [address] [place] [address] documented as of this encounter Visit Diagnoses Not on filedocumented in this encounter Additional Health Concerns Infection Onset Date Last Indicated Resolved Time COVID-19 03/05/2022 03/05/2022 03/15/2022 7:18 PM EDT documented as of this encounter Care Teams Internal Medicine Nurse Relationship Specialty Start Date End Date Caitlyn Bowie MD [address] [facility] [address] [place] [address] PCP - General Internal Medicine 05/06/21 Henry Kelly MD Pulmonary Department 175 [facility], [address] [place] [address] Physician Pulmonary Disease 09/06/17 06/22/20 documented as of this encounter
--- OUTSIDE RECORDS SUMMARY | 2025-03-24 15:15 | XMS_ITS | Encounter Summary ---
Author Organization [facility] and [facility] Address [address] [place] [phone] Care Team Providers Care Senior Insight Manager International Name Role Phone Caitlyn Bowie MD Primary Care Provider +1- [phone] Encounter Details Date Type Department Care Team (Late st Contact Info) Description 03/11/2021 Scanned Document INTERFACE DEFAULT [address] [place] [phone] System, Provider Not In Social History Tobacco [...] [facility] [address] [place], [place] [phone] Ronald Mills MD [address] [place] [address] [address] [place] [address] documented as of this encounter [...] as of this encounter Care Teams Senior Insight Manager International Relationship Specialty Start Date End Date Caitlyn Bowie MD [facility] [address] [phone] PCP - General Internal Medicine 05/06/21 documented as of this encounter
--- OUTSIDE RECORDS SUMMARY | 2025-03-24 15:15 | XMS_ITS | Clinical Summary ---
Author Organization 175 [facility] Address [address] [place] [address] Phone Care Team Providers Care Pants Cutter Name Role Phone Caitlyn Bowie MD Primary Care Provider [phone] Allergies Active Allergy Reactions Criticality Noted Date [...] total) by mouth every other day. Active riboflavin (VITAMIN B2) 400 mg tablet Take 1 tablet (400 mg total) by mouth 1 (one) time each day. 30 tablet 5 04/19/20 25 Active magnesium oxide (MAG-OX) 400 mg magnesium tablet Take 1 tablet (400 mg total) by mouth 1 (one) time each day. 30 tablet 2 5 Active ciprofloxacin (CIPRO) 500 mg tablet Take [...] 20 mg as needed by her previous boiler operators supervisor which she has taken sporadically. I have asked her to take this daily to see if this improves her symptoms and she has a follow-up appointment with Dr. Shah on September 16 which she will keep. We also had a long conversation regarding the fact that she is seeing 3 different boiler operators supervisor for the same problems. We informed [...] continues to see Dr. Avalos or her boiler operators supervisor at [facility] [...] right lower leg 03/06/2019 Antiphospholipid antibody syndrome ([facility] V24) 12/24/2018 Adrenal insufficiency ([facility] V24) 08/23/2018 Allergic rhinitis 08/23/2018 Hyperparathyroidism ([facility] V24) 08/23/2018 MRSA infection 08/23/2018 Overview (05/16/2024): 06/2009, s/p thoracotomy infection Osteoarthritis 08/23/2018 Radiation-induced pulmonary fibrosis ([facility] V2 4) 11/13/2017 Bronchiectasis ([facility] V24, [facility] V28) 2017 Leg edema 08/08/2017 Restrictive lung disease 08/08/2017 Chronic obstructive pulmonar y disease ([facility] V24, [facility] V28) 04/13/2017 Fibromyalgia 04/13/2017 Congestive heart failure ([facility] V24, [facility] V 28) 04/04/2017 Heterozygous factor V Leiden mutation ([facility] V 24) 04/04/2017 Obstructive sleep apnea syndrome 04/04/2017 Overview (05/16/2024): CPAP Pleural effusion 04/04/2017 Pulmonary hypertension ([facility] V24, [facility] V28 ) 04/04/2017 Multiple pulmonary [...] Encounters Date Type Department Care Team Description 03/20/2025 11:40 AM EDT Office Visit [facility] 175 [facility] [address] [place] [address] Ayanna Jaffe MD Optic neuritis (Primary Dx); White matter lesion of central nervous system; Blurry vision 02/24/2025 Telephone Gastroenterology - [facility] [address] [facility] [address] [place] [phone] Tim Gomes MD 02/23/2025 11:40 AM EDT - 02/23/2025 4:[address] [facility] Emergency [address] [place] [phone] Celia Snider DO Diverticulitis (Primary Dx) Discharge Disposition: Home or Self Care 02/21/2025 4:30 PM EDT Office Visit [facility] [address] [facility] [address] [place] [phone] Shirley Chaidez PA Optic neuritis (Primary Dx) 01/19/2025 7:49 PM EDT - 01/19/2025 9:[address] [facility] Emergency [address] [place] [phone] Discharge Disposition: Home or Self Care 12/23/2024 9:00 AM EDT Office Visit Vascular Surgery - [place] [address] [facility] [address] [place] [phone] Jerry Li MD Complex regional pain syndrome [...] Anxiety 12/07/2016 DX:Anxiety Bronchiectasis ([facility] V24, [facility] V28) 08/08/2017 DX:Bronchiectasis (HCC) Cataract 08/26/2014 DX:Cataract Chronic obstructive pulmonar y disease ([facility] V24, [facility] V28) 04/13/2017 DX:Chronic obstructive pulm onary disease (HCC) 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 DX:Complica cole migraine Congestive heart failure ( S/[facility] V24, [facility] V28) 04/04/2017 DX:Congestive heart failure (HCC) History of deep vein thrombosis 04/04/2017 DX:History of deep vein thrombosis Diverticulitis of sigmoid colon 12/15/2016 DX:Diverticulitis of sigmoid colon Elevated liver enzymes 09/23/2015 DX:Elevat ed liver enzymes Fibromyalgia 04/13/2017 DX:Fibromyalgia Gastroesophageal reflux disease 11/17/2016 DX:Gastroesophageal reflux disease Glaucoma suspect 08/26/2014 DX:Glaucoma dori pect Heterozygous factor V Leiden mutation ([facility] V24) 04/04/2017 DX:Heterozygous factor V [...] syndrome 02/18/2013 DX:Postc oncussion syndrome Pulmonary hypertension ([facility] V24, [facility] V28) 04/04/2017 DX:Pulmonary hypertension (H CC) Restrictive lung disease 08/08/2017 DX:Rest rictive lung disease 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 DX:Zinc deficien cy Obstructive sleep apnea syndrome 04/04/2017 DX:Obstructive sleep apnea syndrome; COMMENT: CPAP Radiation-induced pulmonary fibrosis ([facility] V24) 11/13/2017 DX:Radiation-induced pulmona ry fibrosis (HCC) Adrenal insufficiency ([facility] V24) 08/23/2018 DX:Adrenal insufficiency (HCC) Hyperparathyroidism ([facility] V24) 08/23/2018 DX:Hyperparathyroidism (HCC) Osteoporosis [...] Mx LLL resection, Chemo, RT, Cisplatin, Vinorelbine [id number] Antiphospholipid antibody sy ndrome ([facility] V24) 12/24/2018 DX:Antiphospholipid antibody syndrome (HCC) 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 Hyperparathyroidism ([facility] V24) DX:Hyperparathyroidism (HCC) Adrenal insufficiency ([facility] V24) DX:Adrenal insufficiency (HCC) Family [...] Pulse 76 03/20/2025 11:38 AM EDT Temperature 36.8 C (98.2 F) 02/23/2025 12:44 PM EDT Respiratory Rate 18 02/23/2025 12:44 PM EDT Oxygen Saturation 99% 03/20/2025 11:38 AM EDT Inhaled Oxygen Concentration - - Weight 57.6 kg (127 lb) 03/20/2025 11:38 AM EDT Height 157.5 cm (5' 2 ) 03/20/2025 11:38 AM EDT Body Mass Index 23.23 03/20/2025 11:38 AM EDT Plan of Treatment Upcoming Encounters Date Type Department Care Team (Late st Contact Info) Description 04/14/2025 10:00 AM EDT Evaluation [facility] [address] [place] [phone] Bruno Moreno, PT [address] [place] [address] 05/29/2025 3:00 PM EST Office Visit [facility] 175 [facility] [address] [place] [phone] Ayanna Jaffe MD [address] [place] [phone] Health Maintenance Due Date Last Done Comments [...] Associated Diagnosis Comments CBC WITH AUTO DIFFERENTIAL Routine 03/20/2025 12:31 PM EDT Optic neuritis White matter lesion of central nervous system Blurry vision CBC AND DIFFERENTIAL Routine 03/20/2025 12:31 PM EDT Optic neuritis White matter lesion of central nervous system Blurry vision SEDIMENTATION RATE Routine 03/20/2025 12 :31 PM EDT Optic neuritis White matter lesion of central nervous system Blurry vision NEUROMYELITIS OPTICA, [id number] Routine 03/20/2025 12:31 PM EDT Optic neuritis White matter lesion of central nervous system Blurry vision ECG ANNOTATED 02/24/2025 CT ABDOMEN PELVIS WO [...] EDT from Last 3 Months Results * Neuromyelitis optica, [id number] (03/20/2025 12:31 PM EDT) [facility] NMO IgG Autoantibodies <1.5 0.0 - 3.0 U/mL 03/24/2025 3:05 PM EDT [facility] Comment: Negative: 0.0 - 3.0 Positive: >3.0 Blood Venous blood specimen / Unknown Venipuncture / Unknown 03/20/2025 12:31 PM EDT 03/20/2025 12:31 PM EDT Narrative [facility] - 03/24/2025 3:05 PM EDT Performed at: [facility] [id number] Curriculum Writer: Melissa Wetzel MD, Phone: [phone] Ayanna Jaffe MD LAB BLOOD ORDERABLES Fin al Result [facility] * (ABNORMAL) CBC auto differential (03/20/2025 12:31 PM EDT) Only the most recent of2 resultswithin the time period is included. [facility] WBC 11.0(H) 4.8 - 10.8 K/[facility] LAB HEMETOLOGY METHOD 03/20/2025 2:23 PM EDT [facility] RBC 3.50(L) 3.80 - 4.80 M/mcL LAB HEMETOLOGY METHOD 03/20/2025 2:[address] [facility] Hemoglobin 11.5 11.5 - 16.0 g/dL LAB HEMETOLOGY METHOD 03/20/2025 2[facility] Hematocrit 36.7 35.0 - 47.0 % LAB HEMETOLOGY METHOD 03/20/2025 2:23 PM [facility] MCV 105.2(H) 79.0 - 98.0 FL LAB HEMETOLOGY METHOD 03/20/2025 2:23 PM [facility] MCH 33.0(H) 27.0 - 32.0 pcg LAB HEMETOLOGY METHOD 03/20/2025 2:23 PM [facility] MCHC 31.3(L) 32.0 - 37.0 g/dL LAB HEMETOLOGY METHOD 03/20/2025 2:23 PM [facility] RDW 14.1 11.0 - 15.0 % LAB HEMETOLOGY METHOD 03/20/2025 2:23 PM [facility] Platelets 243 130 - 400 K/mcL LAB HEMETOLOGY METHOD 03/20/2025 2:23 PM [facility] MPV 11.3(H) 7.0 - 11.0 FL LAB HEMETOLOGY METHOD 03/20/2025 2:23 PM [facility] NRBC 0.2 <1.0 % LAB HEMETOLOGY METHOD 03/20/2025 2:23 PM [facility] NRBC Absolute 0.02 <0.10 K/mcL LAB HEMETOLOGY METHOD 03/20/2025 2:23 PM [facility] Neutrophils Relative 75.9 % LAB HEMETOLOGY METHOD 03/20/2025 2:23 PM [facility] Lymphocytes Relative 8.7 % LAB HEMETOLOGY METHOD 03/20/2025 2:[address] [facility] Monocytes Relative 12.2 % LAB HEMETOLOGY METHOD 03/20/2025 2:23 PM [facility] Eosinophils Relative 0.7 % LAB HEMETOLOGY METHOD 03/20/2025 2:23 PM [facility] Basophils Relative 0.7 % LAB HEMETOLOGY METHOD 03/20/2025 2:23 PM [facility] Immature Granulocytes Relative 1.8 % LAB HEMETOLOGY METHOD 03/20/2025 2:[address] [facility] Neutrophils Absolute 8.36(H) 1.50 - 7.00 K/mcL LAB HEMETOLOGY METHOD 03/20/2025 2:23 PM [facility] Lymphocytes Absolute 0.96(L) 1.00 - 5.00 K/mcL LAB HEMETOLOGY METHOD 03/20/2025 2:23 PM [facility] Monocytes Absolute 1.34(H) 0.20 - 1.00 K/mcL LAB HEMETOLOGY METHOD 03/20/2025 2:23 PM [facility] Eosinophils Absolute 0.08 0.00 - 0.50 K/mcL LAB HEMETOLOGY METHOD 03/20/2025 2:23 PM [facility] Basophils Absolute 0.08 0.00 - 0.20 K/mcL LAB HEMETOLOGY METHOD 03/20/2025 2:23 PM [facility] Immature Granulocytes Absolute 0.20(H) 0.00 - 0.03 K/mcL LAB HEMETOLOGY METHOD 03/20/2025 2:23 PM [facility] Blood Venous blood specimen / Unknown Venipuncture / Unknown 03/20/2025 12:31 PM EDT 03/20/2025 12:31 PM EDT us Ayanna Jaffe MD LAB BLOOD ORDERABLES Fin al Result Performing Organization Address City/[facility]/ZIP Co de Phone Number [facility] [address] [place] [address], [place] [phone] * Sedimentation rate (03/20/2025 12:31 PM EDT) Sed Rate 25 0 - 30 mm/hr LAB HEMETOLOGY METHOD 03/20/2025 2:[address] [facility] Blood Venous blood specimen / Unknown Venipuncture / Unknown 03/20/2025 12:31 PM EDT 03/20/2025 12:31 PM EDT Ayanna Jaffe MD LAB BLOOD ORDERABLES Fin al Result Performing Organization Address [facility]/ZIP Co de Phone Number [facility] [address] [place] [address], [place] [phone] * ECG-Annotated (02/24/2025) Provider Onbase ECG ORDERABLES Final Result * CT Head wo Contrast (02/23/2025 2:53 PM EDT) Anatomical Region Laterality Modality Head and Neck Computed Tomogra phy 02/23/2025 2:57 PM EDT Impressions 02/23/2025 3:01 PM EDT Impression: No acute hemorrhage or intracranial mass effect. No significant change. Telerad EMELIA ([id number]) -------- FINAL REPORT -------- Dictated By: Fawn Levin Dictated Date: 02/23/2025 14:57 ET Assigned Physician: Fawn Levin Reviewed and Electronically Signed By: Fawn Levin Signed Date: 02/23/2025 15:01 ET Workstation ID: [id number] Transcribed By: Self Edit Transcribed Date: 02/23/2025 14:57 ET Narrative 02/23/2025 3:01 PM EDT History: Headache. Comparison: 12/10/24 Technique: Contiguous axial images were obtained at 2.5 mm intervals through the posterior fossa and at 5 mm intervals through the remainder of the brain without intravenous contrast. DLP: 808.85 mGy/cm GE AEOLUS [employer]ARMACE[employer]Speed VCT Iterative reconstruction technique Findings: Moderate generalized [...] without intravenous contrast. DLP: 808.85 mGy/cm GE [employer]ARMACE[employer] VCT Iterative reconstruction technique Findings: Moderate generalized [...] or intracranial mass effect. No significant change. Primordial Geneticskarla KAPOOR ([id number]) -------- FINAL REPORT -------- Dictated By: Fawn Levin Dictated Date: 02/23/2025 14:57 ET Assigned Physician: Fawn Levin Reviewed and Electronically Signed By: Fawn Levin Signed Date: 02/23/2025 15:01 ET Workstation ID: [id number] Transcribed By: Self Edit Transcribed Date: 02/23/2025 14:57 ET us Afsaneh KAPOOR IMG CT PROCEDURES Final Resu lt * CT Abdomen Pelvis wo Contrast (02/23/2025 2:53 PM EDT) Anatomical Region Laterality Modality Body Computed Tomogra phy 02/23/2025 3:01 PM EDT Impressions 02/23/2025 3:05 PM EDT Impression: Uncomplicated sigmoid diverticulitis. The differential diagnosis includes colonic mucosal neoplasm and direct visualization is recommended, when clinically appropriate, to exclude this possibility. Telerad EMELIA ([id number]) -------- FINAL REPORT -------- Dictated By: Fawn Levin Dictated Date: 02/23/2025 15:01 ET Assigned Physician: Fawn Levin Reviewed and Electronically Signed By: Fawn Levin Signed Date: 02/23/2025 15:05 ET Workstation ID: [id number] Transcribed By: Self Edit Transcribed Date: 02/23/2025 15:01 ET Narrative 02/23/2025 3:05 PM EDT History: Left lower quadrant abdominal pain. Comparison: 08/23/23 Technique: Helical volumetric imaging of the abdomen and pelvis was performed without intravenous or oral contrast. DLP: 480.07 mGy/cm Open [email or web address] VCT Iterative reconstruction technique Findings: Chronic pleural-parenchymal [...] intravenous or oral contrast. DLP: 480.07 mGy/cm [email or web address] VCT Iterative reconstruction technique Findings: Chronic pleural-parenchymal [...] appropriate, to exclude this possibility. Telekarla KAPOOR ([id number]) -------- FINAL REPORT -------- Dictated By: Fawn Levin Dictated Date: 02/23/2025 15:01 ET Assigned Physician: Fawn Levin Reviewed and Electronically Signed By: Fawn Levin Signed Date: 02/23/2025 15:05 ET Workstation ID: [id number] Transcribed By: Self Edit Transcribed Date: 02/23/2025 15:01 ET Afsaneh KAPOOR IMG CT PROCEDURES Final Resu lt * Lactate, with reflex (02/23/2025 2:25 PM EDT) LACTIC ACID 1.1 0.4 - 2.0 mmol/L LAB CHEMISTRY METHOD 02/23/2025 3:[address] [facility] Blood Venous blood specimen / Unknown Venipuncture / Unknown 02/23/2025 2:25 PM EDT 02/23/2025 2:35 PM EDT Afsaneh KAPOOR LAB BLOOD ORDERABLES Final R esult Performing Organization Address City/[facility]/ZIP Co de Phone Number [facility] [address] [place] [address], [place] [phone] * Blood Culture, Peripheral Draw #2 (02/23/2025 2:25 PM EDT) Only the most recent of2 resultswithin the time period is included. Pathologist [facility] Culture, Blood No growth at 5 days 02/28/2025 3:[address] [facility] Blood Venous blood specimen / Unknown Venipuncture / Unknown 02/23/2025 2:25 PM EDT 02/23/2025 2:35 PM EDT Afsaneh KAPOOR LAB MICROBIOLOGY - GENERAL O RDERABLES Final Result Performing Organization Address City/[facility]/ZIP Co de Phone Number [facility] [address] [place] [address], [place] [phone] * XR Chest 1 View (02/23/2025 2:15 PM EDT) Anatomical Region Laterality Modality Body Radiographic Monserrat ging 02/23/2025 2:33 PM EDT Impressions 02/23/2025 2:37 PM EDT Impression: Stable radiographic appearance of the chest, including volume loss and chronic pleural-parenchymal opacity in the left hemithorax consistent with previously treated lung carcinoma. No acute process identified. Telerad PA ([id number]) -------- FINAL REPORT -------- Dictated By: Fawn Levin Dictated Date: 02/23/2025 14:33 ET Assigned Physician: Fawn Levin Reviewed and Electronically Signed By: Fawn Levin Signed Date: 02/23/2025 14:37 ET Workstation ID: [id number] Transcribed By: Self Edit Transcribed Date: 02/23/2025 14:33 ET Narrative 02/23/2025 2:37 PM EDT History: Dyspnea. Personal history of lung carcinoma. Comparison: 07/30/23, thoracic CT 09/09/24 [place], [place] Findings: Portable AP upright chest at [...] lung carcinoma. Comparison: 07/30/23, thoracic CT 09/09/24 [place], [place] Findings: Portable AP upright chest at [...] lung carcinoma. No acute process identified. Telerad PA ([id number]) -------- FINAL REPORT -------- Dictated By: Fawn Levin Dictated Date: 02/23/2025 14:33 ET Assigned Physician: Fawn Levin Reviewed and Electronically Signed By: Fawn Levin Signed Date: 02/23/2025 14:37 ET Workstation ID: [id number] Transcribed By: Self Edit Transcribed Date: 02/23/2025 14:33 ET Afsaneh KAPOOR IMG XR PROCEDURES Final Resu lt * Urinalysis with reflex microscopic and culture (02/23/2025 2:04 PM EDT) Specific [place] Urine 1.006 1.003 - 1.030 LAB URINALYSIS - AUTOMATED METHOD 02/23/2025 2:[address] [facility] pH, Urine 7.5 5.0 - 8.0 pH LAB URINALYSIS - AUTOMATED METHOD 02/23/2025 2:17 PM [facility] Leukocytes, Urine Negative Negative LAB URINALYSIS - AUTOMATED METHOD 02/23/2025 2:17 PM [facility] Nitrite, Urine Negative Negative LAB URINALYSIS - AUTOMATED METHOD 02/23/2025 2:17 PM [facility] Protein, Urine Negative <=Trace mg/dL LAB URINALYSIS - AUTOMATED METHOD 02/23/2025 2:[address] [facility] Glucose, Urine Negative Negative mg/dL LAB URINALYSIS - AUTOMATED METHOD 02/23/2025 2:17 PM [facility] Ketones, Urine Negative Negative mg/dL LAB URINALYSIS - AUTOMATED METHOD 02/23/2025 2:17 PM [facility] Urobilinogen, Urine 0.2 0.2 - 1.0 mg/dL LAB URINALYSIS - AUTOMATED METHOD 02/23/2025 2:17 PM [facility] Bilirubin, Urine Negative Negative LAB [...] Final R esult Performing Organization Address City/[facility]/ZIP Co de Phone Number [facility] [address] [place] [address], [place] [phone] * Martinez urine culture tube (02/23/2025 2:04 PM EDT) Pathologist [facility] Extra Tube Hold for add-ons. 02/23/2025 4:[address] [facility] Comment:Auto resulted. Urine Urine specimen obtained by clean catch procedure / Unknown Non-blood Collection / Unknown 02/23/2025 2:04 PM EDT 02/23/2025 2:05 PM EDT Afsaneh KAPOOR LAB URINE ORDERABLES Final R esult Performing Organization Address City/[facility]/ZIP Co de Phone Number [facility] [address] [place] [address], [place] [phone] * Troponin I high sensitivity (02/23/2025 1:15 PM EDT) High Sensitivity Troponin I 25 <=54 ng/L [...] Final R esult Performing Organization Address City/[facility]/ZIP Co de Phone Number [facility] [address] [place] [address], [place] [phone] * (ABNORMAL) Prothrombin time with INR (02/23/2025 [...] Final R esult Performing Organization Address City/[facility]/ZIP Co de Phone Number [facility] [address] [place] [address], * Type and screen (02/23/2025 1:15 PM EDT) ABO Group A 02/23/2025 2:[address] [facility] Rh Type Positive 02/23/2025 2:[address] [facility] Antibody Screen Negative 02/23/2025 2:[address] [facility] Blood Venous blood specimen / Unknown Venipuncture / Unknown 02/23/2025 1:15 PM EDT 02/23/2025 1:40 PM EDT Afsaneh KAPOOR LAB BLOOD BANK TEST ORDERABL ES Final Result [facility] [address] [place] [address], [place] [phone] * (ABNORMAL) Comprehensive Metabolic Panel (CMP) (02/23/2025 1:15 PM EDT) Sodium 136 133 - 145 mmol/L LAB CHEMISTRY METHOD 02/23/2025 2:[address] [facility] Potassium 3.5 3.5 - 5.5 mmol/L LAB CHEMISTRY METHOD 02/23/2025 2:[address] [facility] Chloride 97 96 - 110 mmol/L LAB CHEMISTRY METHOD 02/23/2025 2:13 PM [facility] CO2 33(H) 21 - 32 mmol/L LAB CHEMISTRY METHOD 02/23/2025 2:13 PM [facility] Anion Gap 6 3 - 11 LAB CHEMISTRY METHOD 02/23/2025 2:13 PM [facility] Glucose 100 70 - 100 mg/dL LAB CHEMISTRY METHOD 02/23/2025 2:13 PM [facility] BUN 23 5 - 25 mg/dL LAB CHEMISTRY METHOD 02/23/2025 2:13 PM [facility] Creatinine 0.83 0.50 - 1.10 mg/dL LAB CHEMISTRY METHOD 02/23/2025 2:13 PM [facility] eGFR 71 >=60 mL/min/1. 73m2 LAB CHEMISTRY METHOD 02/23/2025 2:13 PM [facility] Comment:Calculation based on the Chronic Kidney Disease Epidemiology Collaboration (CKD-EPI) equation refit without adjustment for race. BUN/Creatinine Ratio 27.7 LAB CHEMISTRY METHOD 02/23/2025 2:[address] [facility] Calcium 10.0 8.5 - 10.5 mg/dL LAB CHEMISTRY METHOD 02/23/2025 2:[address] [facility] AST (SGOT) 29 10 - 42 unit/L LAB CHEMISTRY METHOD 02/23/2025 2:[address] [facility] ALT (SGPT) 24 10 - 60 unit/L LAB CHEMISTRY METHOD 02/23/2025 2:[address] [facility] Alkaline Phosphatase 72 42 - 121 unit/L LAB CHEMISTRY METHOD 02/23/2025 2:[address] [facility] Total Protein 6.9 6.0 - [...] R esult [facility] [address] [place] [address], * 12-Lead ECG (02/23/2025 1:05 PM EDT) Ventricular Rate ECG 79 BPM GEMUSE Atrial Rate 79 BPM GEMUSE P-R Interval 164 ms GEMUSE QRS Duration 138 ms GEMUSE Q-T Interval 422 ms GEMUSE QTc 483 ms GEMUSE P Wave [place] 68 degrees GEMUSE R [place] -59 degrees GEMUSE T [place] 62 degrees GEMUSE ECG Interpretation Normal sinus [...] GEMUSE from Last 3 Months Insurance MEDICARE [facility] Advance Directives Documents on File Type Date Recorded Patient Tire Mold Tester Expl anation Health Care Decision (hx) 10/18/2013 [...] (hx) 10/04/2013 AD LACEY DIRECTIVE Care Teams Pants Cutter Relationship Specialty Start Date End Date Caitlyn Bowie MD [address] [place] [id number] PCP - General Internal Medicine 12/10/24
--- OUTSIDE RECORDS SUMMARY | 2025-03-24 15:15 | XMS_ITS | Encounter Summary ---
Author Organization [facility] Address [address] [place] [address] Care Team Providers Care Relay Telegrapher Name Role Phone Caitlyn Bowie MD Primary Care Provider +1- [phone] Encounter Details Date Type Department Care Team (Late st Contact Info) Description 02/15/2021 Scanned Document INTERFACE DEFAULT [address] [place] [address] System, Provider Not In Social History Tobacco [...] [facility] [address] [facility] [address] [place] [address] Ronald Mills MD [address] [place] [address] [address] [place] [address] documented as of this encounter Visit Diagnoses Not on filedocumented in this encounter Additional Health Concerns Infection Onset Date Last Indicated Resolved Time COVID-19 03/05/2022 03/05/2022 03/15/2022 7:18 PM EDT Assessment Noted Time PHQ-9 Depression Total Score: 2 11/07/19 19 2:06 PM EDT documented as of this encounter Care Teams Relay Telegrapher Relationship Specialty Start Date End Date Caitlyn Bowie MD [address] [address] PCP - General Internal Medicine 05/06/21 documented as of this encounter
--- OUTSIDE RECORDS SUMMARY | 2025-03-24 15:15 | XMS_ITS | Encounter Summary ---
Author Organization [facility] Address [address] [place] [address] Care Team Providers Care Design Cell Engineer Name Role Phone Caitlyn Bowie MD Primary Care Provider +1- [phone] Encounter Details Date Type Department Care Team (Late st Contact Info) Description 04/02/2021 Scanned Document INTERFACE DEFAULT [address] [place] [address] System, Provider Not In Social History Tobacco [...] [facility] 240 [facility] [address] [place], [place] [address] Ronald Mills MD [address] [place] [address] [address] [place] [address] documented as of this encounter [...] as of this encounter Care Teams Design Cell Engineer Relationship Specialty Start Date End Date Caitlyn Bowie MD [address] [address] PCP - General Internal Medicine 05/06/21 documented as of this encounter
--- OUTSIDE RECORDS SUMMARY | 2025-03-24 15:15 | XMS_ITS | Encounter Summary ---
Author Organization [facility] Address [address] [place] [address] Care Team Providers Care Employee Welfare Manager Name Role Phone Caitlyn Bowie MD Primary Care Provider +1- [phone] Encounter Details Date Type Department Care Team (Late st Contact Info) Description 04/10/2021 Scanned Document INTERFACE DEFAULT [address] [place] [address] System, Provider Not In Social History Tobacco [...] [facility] 240 [facility] [address] [place] [address] Ronald Mills MD [address] [place] [address] [address] [place] [address] documented as of this encounter [...] as of this encounter Care Teams Employee Welfare Manager Relationship Specialty Start Date End Date Caitlyn Bowie MD [address] [address] PCP - General Internal Medicine 05/06/21 documented as of this encounter
--- OUTSIDE RECORDS SUMMARY | 2025-03-24 15:15 | XMS_ITS | Encounter Summary ---
Author Organization [facility] and [facility] Address [address] [place] [address] Care Team Providers Care Manufacturers Agent Name Role Phone Caitlyn Bowie MD Primary Care Provider +1- [phone] Encounter Details Date Type Department Care Team (Late st Contact Info) Description 01/26/2018 Scanned Document [facility] Health Information Management [address] [place] [address] External, Provider Social History Tobacco Use Types [...] [facility] Building [address] [place], [place] [id number] Ronald Mills MD 240 [facility] [address]1 [place] [address] documented as of this encounter Visit Diagnoses Not on filedocumented in this encounter Additional Health Concerns Infection Onset Date Last Indicated Resolved Time COVID-19 03/05/2022 03/05/2022 03/15/2022 7:18 PM EDT documented as of this encounter Care Teams Manufacturers Agent Relationship Specialty Start Date End Date Caitlyn Bowie MD 3400 [facility] 1 [place] [address] PCP - General Internal Medicine 05/06/21 Henry Kelly MD Pulmonary Department 175 [facility], [address] [place] [address] Physician Pulmonary Disease 09/06/17 06/22/20 documented as of this encounter
--- OUTSIDE RECORDS SUMMARY | 2025-03-24 15:15 | XMS_ITS | Encounter Summary ---
Author Organization [facility] Address [address] [place] [address] Care Team Providers Care Auto Parts Salesperson Name Role Phone Caitlyn Bowie MD Primary Care Provider +1- [phone] Encounter Details Date Type Department Care Team (Late st Contact Info) Description 02/03/2021 Scanned Document INTERFACE DEFAULT [address] [place] [address] System, Provider Not In Social History Tobacco [...] at [facility] 240 [facility] Building [address] [place], [place] [address] Ronald Mills MD [address] [place] [address] [address] [place] [address] documented as of this encounter [...] as of this encounter Care Teams Auto Parts Salesperson Relationship Specialty Start Date End Date Caitlyn Bowie MD [address] [address] PCP - General Internal Medicine 05/06/21 documented as of this encounter
--- OUTSIDE RECORDS SUMMARY | 2025-03-24 15:15 | XMS_ITS | Encounter Summary ---
Author Organization [facility] and [facility] Address [address] [place] [address] Care Team Providers Care Assistant Professor Of Archaeology Name Role Phone Caitlyn Bowie MD Primary Care Provider +1- [phone] Encounter Details Date Type Department Care Team (Late st Contact Info) Description 02/11/2021 Scanned Document INTERFACE DEFAULT [address] [place] [address] System, Provider Not In Social History Tobacco [...] [facility] Building [address] [place] [address] Ronald Mills MD [address] [place] [address] [address] [place] [address] documented as of this encounter [...] this encounter Care Teams Assistant Professor Of Archaeology Relationship Specialty Start Date End Date Caitlyn Bowie MD [address] [address] PCP - General Internal Medicine 05/06/21 documented as of this encounter
--- OUTSIDE RECORDS SUMMARY | 2025-03-24 15:15 | XMS_ITS | Encounter Summary ---
Author Organization [facility] Address [address] [place] [address] Care Team Providers Care Data Entry Technician Name Role Phone Caitlyn Bowie MD Primary Care Provider +1- [phone] Encounter Details Date Type Department Care Team (Late st Contact Info) Description 03/22/2021 Scanned Document INTERFACE DEFAULT [address] [place] [address] System, Provider Not In Social History Tobacco [...] [facility] 240 [facility] [address] [place] [address] Ronald Mills MD [address] [place] [address] [address] [place] [address] documented as of this encounter Visit Diagnoses Not on filedocumented in this encounter Additional Health Concerns Infection Onset Date Last Indicated Resolved Time COVID-19 03/05/2022 03/05/2022 03/15/2022 7:18 PM EDT Assessment Noted Time PHQ-9 Depression Total Score: 2 11/07/19 19 2:06 PM EDT documented as of this encounter Care Teams Data Entry Technician Relationship Specialty Start Date End Date Caitlyn Bowie MD [address] [address] PCP - General Internal Medicine 05/06/21 documented as of this encounter
--- OUTSIDE RECORDS SUMMARY | 2025-03-24 15:15 | XMS_ITS | Encounter Summary ---
Author Organization [facility] and [facility] Address [address] [place] [address] Care Team Providers Care Housing Management Officer Name Role Phone Caitlyn Bowie MD Primary Care Provider +1- [phone] Encounter Details Date Type Department Care Team (Late st Contact Info) Description 01/07/2014 Documentation [facility] [address] [place] [address] Shilpi Ibarra [address] [place] [address] Social History Tobacco Use Types Packs/Day Years [...] from the original note were not included. [facility] Progress Note This is a 70 [...] [facility] 240 [facility] Building [address] [place], [place] [address] Ronald Mills MD [address] [place] [address] documented as of this encounter Visit Diagnoses Not on filedocumented in this encounter Additional Health Concerns Infection Onset Date Last Indicated Resolved Time COVID-19 03/05/2022 03/05/2022 03/15/2022 7:18 PM EDT documented as of this encounter Care Teams Housing Management Officer Relationship Specialty Start Date End Date Caitlyn Bowie MD [address] [place] [address] PCP - General Internal Medicine 05/06/21 Henry Kelly MD Pulmonary Department 175 [facility], [address] [place] [address] Physician Pulmonary Disease 09/06/17 06/22/20 documented as of this encounter
--- OUTSIDE RECORDS SUMMARY | 2025-03-24 15:15 | XMS_ITS | Encounter Summary ---
Author Organization [facility] Address [address] [place] [address] Care Team Providers Care Life Support Technician Name Role Phone Caitlyn Bowie MD Primary Care Provider +1- [phone] Encounter Details Date Type Department Care Team (Late st Contact Info) Description 04/11/2021 Scanned Document INTERFACE DEFAULT [address] [place] [address] System, Provider Not In Social History Tobacco [...] [facility] 240 [facility] Building [address] [place], [place] [address] Ronald Mills MD [address] [place] [address] [address] [place] [address] documented as of this encounter [...] as of this encounter Care Teams Life Support Technician Relationship Specialty Start Date End Date Caitlyn Bowie MD [address] [address] PCP - General Internal Medicine 05/06/21 documented as of this encounter
--- OUTSIDE RECORDS SUMMARY | 2025-03-24 15:15 | XMS_ITS | Encounter Summary ---
Author Organization [facility] Address [address] [place] [address] Care Team Providers Care Tank Car Cleaner Name Role Phone Caitlyn Bowie MD Primary Care Provider +1- [phone] Encounter Details Date Type Department Care Team (Late st Contact Info) Description 02/25/2021 Scanned Document INTERFACE DEFAULT [address] [place] [address] System, Provider Not In Social History Tobacco [...] [facility] Building [address] [place] [address] Ronald Mills MD [address] [place] [address] [address] [place] [address] documented as of this encounter [...] as of this encounter Care Teams Tank Car Cleaner Relationship Specialty Start Date End Date Caitlyn Bowie MD [address] [address] PCP - General Internal Medicine 05/06/21 documented as of this encounter
--- OUTSIDE RECORDS SUMMARY | 2025-03-24 15:15 | XMS_ITS | Encounter Summary ---
Author Organization [facility] and [facility] Address [address] [place] [address] Care Team Providers Care Railroad Auditor Name Role Phone Caitlyn Bowie MD Primary Care Provider +1- [phone] Encounter Details Date Type Department Care Team (Late st Contact Info) Description 08/23/2017 Scanned Document [facility] Health Information Management [address] [place] [address] External, Provider Social History Tobacco Use Types [...] [facility] 240 [facility] Building [address] [place], [place] [address] Ronald Mills MD [address] [place] [address] [address] [place] [address] documented as of [...] as of this encounter Care Teams Railroad Auditor Relationship Specialty Start Date End Date Caitlyn Bowie MD 3400 [facility] 1 [place] [address] PCP - General Internal Medicine 05/06/21 Henry Kelly MD Pulmonary Department 175 [facility], [address] [place] [address] Physician Pulmonary Disease 09/06/17 06/22/20 documented as of this encounter
--- OUTSIDE RECORDS SUMMARY | 2025-03-24 15:15 | XMS_ITS | Encounter Summary ---
Author Organization [facility] Address [address] [place] [address] Care Team Providers Care Agriculture Consultant Name Role Phone Caitlyn Bowie MD Primary Care Provider +1- [phone] Encounter Details Date Type Department Care Team (Late st Contact Info) Description 02/02/2021 Scanned Document INTERFACE DEFAULT [address] [place] [address] System, Provider Not In Social History Tobacco [...] [facility] 240 [facility] Building [address] [place] [address] Ronald Mills MD [address] [place] [address] [address] [place] [address] documented as of this encounter [...] as of this encounter Care Teams Agriculture Consultant Relationship Specialty Start Date End Date Caitlyn Bowie MD [facility] [address] [address] PCP - General Internal Medicine 05/06/21 documented as of this encounter
--- OUTSIDE RECORDS SUMMARY | 2025-03-24 15:15 | XMS_ITS | Encounter Summary ---
Author Organization [facility] and [facility] Address [address] [place] [address] Care Team Providers Care Concrete Pump Operator Helper Name Role Phone Caitlyn Bowie MD Primary Care Provider +1- [phone] Encounter Details Date Type Department Care Team (Late st Contact Info) Description 02/28/2021 Scanned Document INTERFACE DEFAULT [address] [place] [address] System, Provider Not In Social History Tobacco [...] [facility] 240 [facility] Building [address] [place] [address] Ronald Mills MD [address] [place] [address] [address] [place] [address] documented as of this encounter [...] as of this encounter Care Teams Concrete Pump Operator Helper Relationship Specialty Start Date End Date Caitlyn Bowie MD [address] [address] PCP - General Internal Medicine 05/06/21 documented as of this encounter
--- OUTSIDE RECORDS SUMMARY | 2025-03-24 15:15 | XMS_ITS | Encounter Summary ---
Author Organization [facility] Address [address] [place] [address] Care Team Providers Care Shore Hand Dredge Or Barge Name Role Phone Caitlyn Bowie MD Primary Care Provider +1- [phone] Encounter Details Date Type Department Care Team (Late st Contact Info) Description 03/14/2021 Scanned Document INTERFACE DEFAULT [address] [place] [address] System, Provider Not In Social History Tobacco [...] [facility] 240 [facility] [address] [place], [place] [address] Ronald Mills MD [address] [place] [address] [address] [place] [address] documented as of this encounter [...] End Date Caitlyn Bowie MD [address] [address] PCP - General Internal Medicine 05/06/21 documented as of this encounter
--- OUTSIDE RECORDS SUMMARY | 2025-03-24 15:15 | XMS_ITS | Encounter Summary ---
Author Organization [facility] and [facility] Address [address] [place] [address] Care Team Providers Care Repair Weaver Name Role Phone Caitlyn Bowie MD Primary Care Provider +1- [phone] Encounter Details Date Type Department Care Team (Late Contact Info) Description 02/02/2021 Scanned Document [facility] Health Information Management [address] [place] [address] External, Provider Social History Tobacco Use Types [...] [facility] 240 [facility] Building [address] [place], [place] [address] Ronald Mills MD [address] [place] [address] [address]1 [place] [address] documented as of this encounter Visit Diagnoses Not on filedocumented in this encounter Additional Health Concerns Infection Onset Date Last Indicated Resolved Time COVID-19 03/05/2022 03/05/2022 03/15/2022 7:18 PM EDT Assessment Noted Time PHQ-9 Depression Total Score: 2 11/07/19 19 2:06 PM EDT documented as of this encounter Care Teams Repair Weaver Relationship Specialty Start Date End Date Caitlyn Bowie MD [address] [address] PCP - General Internal Medicine 05/06/21 documented as of this encounter
--- OUTSIDE RECORDS SUMMARY | 2025-03-24 15:15 | XMS_ITS | Encounter Summary ---
Author Organization [facility] and [facility] Address [address] [place] [address] Care Team Providers Care Spinning Supervisor Name Role Phone Caitlyn Bowie MD Primary Care Provider +1- [phone] Encounter Details Date Type Department Care Team (Late st Contact Info) Description 03/23/2021 Scanned Document INTERFACE DEFAULT [address] [place] [address] System, Provider Not In Social History Tobacco [...] [facility] 240 [facility] Building [address] [place] [address] Ronald Mills MD [address] [place] [address] [address] [place] [address] documented as of this encounter [...] as of this encounter Care Teams Spinning Supervisor Relationship Specialty Start Date End Date Caitlyn Bowie MD [address] [address] PCP - General Internal Medicine 05/06/21 documented as of this encounter
--- OUTSIDE RECORDS SUMMARY | 2025-03-24 15:15 | XMS_ITS | Encounter Summary ---
Author Organization [facility] and [facility] Address [address] [place] [address] Care Team Providers Care Pipe Jeeper Name Role Phone Caitlyn Bowie MD Primary Care Provider +1- [phone] Encounter Details Date Type Department Care Team (Late st Contact Info) Description 02/08/2021 Scanned Document INTERFACE DEFAULT [address] [place] [address] System, Provider Not In Social History Tobacco [...] [facility] Building [address] [place] [address] Ronald Mills MD [address] [place] [address] [address] [place] [address] documented as of this encounter Visit Diagnoses Not on filedocumented in this encounter Additional Health Concerns Infection Onset Date Last Indicated Resolved Time COVID-19 03/05/2022 03/05/2022 03/15/2022 7:18 PM EDT Assessment Noted Time PHQ-9 Depression Total Score: 2 11/07/19 19 2:06 PM EDT documented as of this encounter Care Teams Pipe Jeeper Relationship Specialty Start Date End Date Caitlyn Bowie MD [address] [address] PCP - General Internal Medicine 05/06/21 documented as of this encounter
--- OUTSIDE RECORDS SUMMARY | 2025-03-24 15:15 | XMS_ITS | Encounter Summary ---
Author Organization [facility] and [facility] Address [address] [place] [address] Care Team Providers Care Colorer Hides And Skins Name Role Phone Caitlyn Bowie MD Primary Care Provider +1- [phone] Encounter Details Date Type Department Care Team (Late Contact Info) Description 02/03/2021 Scanned Document [facility] Health Information Management [address] [place] [address] External, Provider Social History Tobacco Use Types [...] [facility] 240 [facility] Building [address] [place], [place] [address] Ronald Mills MD [address] [place] [address] [address] [place] [address] documented as of this encounter [...] documented as of this encounter Care Teams Colorer Hides And Skins Relationship Specialty Start Date End Date Caitlyn Bowie MD [address] [address] PCP - General Internal Medicine 05/06/21 documented as of this encounter
--- OUTSIDE RECORDS SUMMARY | 2025-03-24 15:15 | XMS_ITS | Encounter Summary ---
Author Organization [facility] and [facility] Address [address] [place] [address] Care Team Providers Care Sales Apprentice Name Role Phone Caitlyn Bowie MD Primary Care Provider +1- [phone] Encounter Details Date Type Department Care Team (Late st Contact Info) Description 03/08/2021 Scanned Document INTERFACE DEFAULT [address] [place] [address] System, Provider Not In Social History Tobacco [...] [facility] 240 [facility] Building [address] [place], [place] [address] Ronald Mills MD [address] [place] [address] [address] [place] [address] documented as of this encounter [...] as of this encounter Care Teams Sales Apprentice Relationship Specialty Start Date End Date Caitlyn Bowie MD [facility] [address] [address] PCP - General Internal Medicine 05/06/21 documented as of this encounter
--- OUTSIDE RECORDS SUMMARY | 2025-03-24 15:15 | XMS_ITS | Encounter Summary ---
Author Organization [facility] and [facility] Address [address] [place] [address] Care Team Providers Care Coating Machine Operator Name Role Phone Caitlyn Bowie MD Primary Care Provider +1- [phone] Encounter Details Date Type Department Care Team (Late st Contact Info) Description 01/26/2018 Scanned Document [facility] Health Information Management [address] [place] [address] External, Provider Social History Tobacco Use Types [...] [facility] Building [address] [place], [place] [address] Ronald Mills MD [address] [place] [address] [address] [place] [address] documented as of [...] as of this encounter Care Teams Coating Machine Operator Relationship Specialty Start Date End Date Caitlyn Bowie MD 3400 [facility] 1 [place] [address] PCP - General Internal Medicine 05/06/21 Henry Kelly MD Pulmonary Department 175 [facility], [address] [place] [address] Physician Pulmonary Disease 09/06/17 06/22/20 documented as of this encounter
--- OUTSIDE RECORDS SUMMARY | 2025-03-24 15:15 | XMS_ITS | Encounter Summary ---
Author Organization [facility] and [facility] Address [address] [place] [address] Care Team Providers Care Property Utilization Officer Name Role Phone Caitlyn Bowie MD Primary Care Provider +1- [phone] Encounter Details Date Type Department Care Team (Late st Contact Info) Description 03/01/2021 Scanned Document INTERFACE DEFAULT [address] [place] [address] System, Provider Not In Social History [...] [facility] 240 [facility] Building [address] [place] [address] Ronald Mills MD [address] [place] [address] [address] [place] [address] documented as of this encounter Visit Diagnoses Not on filedocumented in this encounter Additional Health Concerns Infection Onset Date Last Indicated Resolved Time COVID-19 03/05/2022 03/05/2022 03/15/2022 7:18 PM EDT Assessment Noted Time PHQ-9 Depression Total Score: 2 11/07/19 19 2:06 PM EDT documented as of this encounter Care Teams Property Utilization Officer Relationship Specialty Start Date End Date Caitlyn Bowie MD [address] [address] PCP - General Internal Medicine 05/06/21 documented as of this encounter
--- OUTSIDE RECORDS SUMMARY | 2025-03-24 15:15 | XMS_ITS | Encounter Summary ---
Author Organization [facility] and [facility] Address [address] [place] [address] Care Team Providers Care Donor Services Manager Name Role Phone Caitlyn Bowie MD Primary Care Provider +1- [phone] Encounter Details Date Type Department Care Team (Late st Contact Info) Description 02/24/2021 Scanned Document INTERFACE DEFAULT [address] [place] [address] System, Provider Not In Social History Tobacco [...] [facility] 240 [facility] [address] [place] [address] Ronald Mills MD [address] [place] [address] [address] [place] [address] documented as of this encounter [...] documented as of this encounter Care Teams Donor Services Manager Relationship Specialty Start Date End Date Caitlyn Bowie MD [address] [address] PCP - General Internal Medicine 05/06/21 documented as of this encounter
--- OUTSIDE RECORDS SUMMARY | 2025-03-24 15:15 | XMS_ITS | Encounter Summary ---
Author Organization [facility] and [facility] Address [address] [place] [address] Care Team Providers Care Drawer In Stitch Bonding Machine Name Role Phone Caitlyn Bowie MD Primary Care Provider +1- [phone] Encounter Details Date Type Department Care Team (Late st Contact Info) Description 03/16/2021 Scanned Document INTERFACE DEFAULT [address] [place] [address] System, Provider Not In Social History Tobacco [...] [facility] 240 [facility] Building [address] [place] [address] Ronald Mills MD [address] [place] [address] [address] [place] [address] documented as of this encounter Visit Diagnoses Not on filedocumented in this encounter Additional Health Concerns Infection Onset Date Last Indicated Resolved Time COVID-19 03/05/2022 03/05/2022 03/15/2022 7:18 PM EDT Assessment Noted Time PHQ-9 Depression Total Score: 2 11/07/19 19 2:06 PM EDT documented as of this encounter Care Teams Drawer In Stitch Bonding Machine Relationship Specialty Start Date End Date Caitlyn Bowie MD [address] [address] PCP - General Internal Medicine 05/06/21 documented as of this encounter
--- OUTSIDE RECORDS SUMMARY | 2025-03-24 15:15 | XMS_ITS | Encounter Summary ---
Author Organization [facility] and [facility] Address [address] [place] [address] Care Team Providers Care Occupational Therapy Department Chair Name Role Phone Caitlyn Bowie MD Primary Care Provider +1- [phone] Encounter Details Date Type Department Care Team (Late st Contact Info) Description 03/24/2021 Scanned Document INTERFACE DEFAULT [address] [place] [address] System, Provider Not In Social History Tobacco [...] [facility] 240 [facility] Building [address] [place] [address] Ronald Mills MD [address] [place] [address] [address] [place] [address] documented as of this encounter Visit Diagnoses Not on filedocumented in this encounter Additional Health Concerns Infection Onset Date Last Indicated Resolved Time COVID-19 03/05/2022 03/05/2022 03/15/2022 7:18 PM EDT Assessment Noted Time PHQ-9 Depression Total Score: 2 11/07/19 19 2:06 PM EDT documented as of this encounter Care Teams Occupational Therapy Department Chair Relationship Specialty Start Date End Date Caitlyn Bowie MD [address] [address] PCP - General Internal Medicine 05/06/21 documented as of this encounter
--- OUTSIDE RECORDS SUMMARY | 2025-03-24 15:15 | XMS_ITS | Encounter Summary ---
Author Organization [facility] and [facility] Address [address] [place] [address] Care Team Providers Care Hanger Name Role Phone Caitlyn Bowie MD Primary Care Provider +1- [phone] Encounter Details Date Type Department Care Team (Late st Contact Info) Description 01/27/2021 Scanned Document [facility] at [address] [address] External, Provider Social History Tobacco Use Types [...] [facility] 240 [facility] Building [address] [place], [place] [phone] Ronald Mills MD [address] [place] [address] [address] [place] [address] documented as of this encounter [...] documented as of this encounter Care Teams Hanger Relationship Specialty Start Date End Date Caitlyn Bowie MD [address] [address] PCP - General Internal Medicine 05/06/21 documented as of this encounter
--- OUTSIDE RECORDS SUMMARY | 2025-03-24 15:15 | XMS_ITS | Encounter Summary ---
Author Organization [facility] and [facility] Address [address] [place] [address] Care Team Providers Care Weaving Teacher Name Role Phone Caitlyn Bowie MD Primary Care Provider +1- [phone] Encounter Details Date Type Department Care Team (Late st Contact Info) Description 10/16/2013 Scanned Document [facility] [address] [place] [address], [address] [facility], [address] [place], [place] [address] Suzy Kong MD [address] [place] [phone] Social History Tobacco Use Types Packs/Day [...] PM EDT Telemedicine Cancer Center at [address] [place] [address] Ronald Mills MD 240 [facility] A1 [place] [address] documented as of this encounter Visit Diagnoses Not on filedocumented in this encounter Additional Health Concerns Infection Onset Date Last Indicated Resolved Time COVID-19 03/05/2022 03/05/2022 03/15/2022 7:18 PM EDT documented as of this encounter Care Teams Weaving Teacher Relationship Specialty Start Date End Date Caitlyn Bowie MD 3400 [facility] [address] [place] [address] PCP - General Internal Medicine 05/06/21 Henry Kelly MD Pulmonary Department 175 [facility], [address] [place] [address] Physician Pulmonary Disease 09/06/17 06/22/20 documented as of this encounter
--- OUTSIDE RECORDS SUMMARY | 2025-03-24 15:16 | XMS_ITS | Encounter Summary ---
Author Organization [facility] and [facility] Address [address] [place] [address] Care Team Providers Care Model Technician Name Role Phone Caitlyn Bowie MD Primary Care Provider +1- [phone] Reason for Visit * Reason Comments Triage Encounter Details Date Type Department Care Team (Late st Contact Info) Description 10/18/2021 Telephone [facility] at [address] - [address] [phone] Ronald Mills MD [address] [place] [phone] Triage Social History Tobacco Use Types [...] Telemedicine [facility] at [facility] 240 [facility] Building [address] [place], [place] [address] Ronald Mills MD 240 [facility] [address] [place] [phone] documented as of this encounter Visit Diagnoses Not on filedocumented in this encounter Additional Health Concerns Infection Onset Date Last Indicated Resolved Time COVID-19 03/05/2022 03/05/2022 03/15/2022 7:18 PM EDT Assessment Noted Time PHQ-9 Depression Total Score: 2 11/07/19 19 2:06 PM EDT documented as of this encounter Care Teams Model Technician Relationship Specialty Start Date End Date Caitlyn Bowie MD [address] [address] PCP - General Internal Medicine 05/06/21 documented as of this encounter
--- OUTSIDE RECORDS SUMMARY | 2025-03-24 15:16 | XMS_ITS | Encounter Summary ---
Author Organization [facility] Address [address] [place] [address] Care Team Providers Care Driver'S License Reviewing Officer Name Role Phone Caitlyn Bowie MD Primary Care Provider +1- [phone] Encounter Details Date Type Department Care Team (Late st Contact Info) Description 07/31/2015 Scanned Document [facility] Health Information Management [address] [place] [address] External, Provider Social History Tobacco Use Types [...] Center at [facility] 240 [facility] Building [address] [place], [place] [address] Ronald Mills MD 240 [facility] [address] [place] [address] documented as of this encounter Procedures Procedure Name Priority Date/Time Associated Diagnosis Comments NUC MED/PET RESULT SCAN Routine 07/31/2015 documented in this encounter Results * Nuc Med/PET Result Scan (07/31/2015) us Provider External IMG SCAN REPORTS Edited Result - Final [facility] [place], [place], [facility] documented in this encounter Visit Diagnoses Not on filedocumented in this encounter Additional Health Concerns Infection Onset Date Last Indicated Resolved Time COVID-19 03/05/2022 03/05/2022 03/15/2022 7:1 8 PM EDT documented as of this encounter Care Teams Driver'S License Reviewing Officer Relationship Specialty Start Date End Date Caitlyn Bowie MD 3400 [facility] 1 [place] [address] PCP - General Internal Medicine 05/06/21 Henry Kelly MD Pulmonary Department 175 [facility], [address] [place] [address] Physician Pulmonary Disease 09/06/17 06/22/20 documented as of this encounter
--- OUTSIDE RECORDS SUMMARY | 2025-03-24 15:16 | XMS_ITS | Encounter Summary ---
Author Organization [facility] and [facility] Address [address] [place] [address] Care Team Providers Care Restaurant Area Manager Name Role Phone Caitlyn Bowie MD Primary Care Provider +1- [phone] Encounter Details Date Type Department Care Team (Late st Contact Info) Description 11/19/2021 Scanned Document Cardiovascular Medicine at [address] [place] [address] Norma Renee MD [address] [place] [address] Social History Tobacco Use Types Packs/Day [...] PM EDT Telemedicine Cancer Center at [address] [place] [address] Ronald Mills MD 240 [facility] A1 [place] [address] documented as of this encounter Visit Diagnoses Not on filedocumented in this encounter Additional Health Concerns Infection Onset Date Last Indicated Resolved Time COVID-19 03/05/2022 03/05/2022 03/15/2022 7:18 PM EDT Assessment Noted Time PHQ-9 Depression Total Score: 2 11/07/19 19 2:06 PM EDT documented as of this encounter Care Teams Restaurant Area Manager Relationship Specialty Start Date End Date Caitlyn Bowie MD [address] [address] PCP - General Internal Medicine 05/06/21 documented as of this encounter
--- OUTSIDE RECORDS SUMMARY | 2025-03-24 15:16 | XMS_ITS | Encounter Summary ---
Author Organization [facility] and [facility] Address [address] [place] [address] Care Team Providers Care Perinatology Physician Name Role Phone Caitlyn Bowie MD Primary Care Provider +1- [phone] Encounter Details Date Type Department Care Team (Late st Contact Info) Description 12/28/2021 Scanned Document INTERFACE DEFAULT [address] [place] [address] System, Provider Not In Social History Tobacco [...] [facility] 240 [facility] [address] [place] [address] Ronald Mills MD [address] [place] [address] [address] [place] [address] documented as of this encounter Visit Diagnoses Not on filedocumented in this encounter Additional Health Concerns Infection Onset Date Last Indicated Resolved Time COVID-19 03/05/2022 03/05/2022 03/15/2022 7:18 PM EDT Assessment Noted Time PHQ-9 Depression Total Score: 2 11/07/19 19 2:06 PM EDT documented as of this encounter Care Teams Perinatology Physician Relationship Specialty Start Date End Date Caitlyn Bowie MD [address] [address] PCP - General Internal Medicine 05/06/21 documented as of this encounter
--- OUTSIDE RECORDS SUMMARY | 2025-03-24 15:16 | XMS_ITS | Encounter Summary ---
Author Organization [facility] and [facility] Address [address] [place] [address] Care Team Providers Care Lead Java Developer Architect Name Role Phone Caitlyn Bowie MD Primary Care Provider +1- [phone] Encounter Details Date Type Department Care Team (Late st Contact Info) Description 12/21/2020 Scanned Document INTERFACE DEFAULT [address] [place] [address] System, Provider Not In Social History Tobacco [...] [facility] at [facility] 240 [facility] Building [address] [place] [address] Ronald Mills MD [address] [place] [address] [address] [place] [address] documented as of this encounter Visit Diagnoses Not on filedocumented in this encounter Additional Health Concerns Infection Onset Date Last Indicated Resolved Time COVID-19 03/05/2022 03/05/2022 03/15/2022 7:18 PM EDT Assessment Noted Time PHQ-9 Depression Total Score: 2 11/07/19 19 2:06 PM EDT documented as of this encounter Care Teams Lead Java Developer Architect Relationship Specialty Start Date End Date Caitlyn Bowie MD [address] [address] PCP - General Internal Medicine 05/06/21 documented as of this encounter
--- OUTSIDE RECORDS SUMMARY | 2025-03-24 15:16 | XMS_ITS | Encounter Summary ---
Author Organization [facility] and [facility] Address [address] [place] [address] Care Team Providers Care Manager Php Name Role Phone Caitlyn Bowie MD Primary Care Provider +1- [phone] Encounter Details Date Type Department Care Team ([facility] st Contact Info) Description 08/26/2014 Documentation [facility] [address] [place] [address] Shilpi Ibarra [address] [place] [address] Social History Tobacco Use Types Packs/Day Years [...] from the original note were not included. [facility] Progress Note This is a 69 y.o. female who was provided services by [facility]. Service Provided By:: Shilpi Ibarra Patient Status: return Length of Appointment: 60 minutes documented in this encounter Plan of Treatment Upcoming Encounters Date Type Department Care Team ([facility] st Contact Info) Description 04/25/2025 4:00 PM EDT Telemedicine [facility] [address] [facility] [address] [place] [address] Ronald Mills MD 240 [facility] [address] [place] [address] documented as of this encounter Visit Diagnoses Not on filedocumented in this encounter Additional Health Concerns Infection Onset Date Last Indicated Resolved Time COVID-19 03/05/2022 03/05/2022 03/15/2022 7:18 PM EDT documented as of this encounter Care Teams Manager Php Relationship Specialty Start Date End Date Caitlyn Bowie MD 3400 [facility] 1 [place] [address] PCP - General Internal Medicine 05/06/21 Henry Kelly MD Pulmonary Department 175 [facility], [address] [place] [address] Physician Pulmonary Disease 09/06/17 06/22/20 documented as of this encounter
--- OUTSIDE RECORDS SUMMARY | 2025-03-24 15:16 | XMS_ITS | Encounter Summary ---
Author Organization [facility] and [facility] Address [address] [place] [address] Care Team Providers Care Shadow Graph Weight Operator Name Role Phone Caitlyn Bowie MD Primary Care Provider +1- [phone] Encounter Details Date Type Department Care Team (Late st Contact Info) Description 02/01/2018 Scanned Document [facility] Health Information Management [address] [place] [address] External, Provider Social History Tobacco Use Types [...] [facility] 240 [facility] Building [address] [place], [place] [address] Ronald Mills MD [address] [place] [address] [address]1 [place] [address] documented as of this encounter [...] 3400 [facility] 1 [place] [address] PCP - General Internal Medicine 05/06/21 Henry Kelly MD Pulmonary Department 175 [facility], [address] [place] [address] Physician Pulmonary Disease 09/06/17 06/22/20 documented as of this encounter
--- OUTSIDE RECORDS SUMMARY | 2025-03-24 15:16 | XMS_ITS | Encounter Summary ---
Author Organization [facility] and [facility] Address 20 [place] [address] Care Team Providers Care Vice Chairman Name Role Phone Caitlyn Bowie MD Primary Care Provider +1- [phone] Encounter Details Date Type Department Care Team (Late st Contact Info) Description 01/13/2021 Scanned Document Cancer Center at [address] [address] External, Provider Social History Tobacco Use Types [...] [facility] 240 [facility] Building [address] [place], [place] [address] Ronald Mills MD [address] [place] [address] [address] [place] [address] documented as of this encounter [...] as of this encounter Care Teams Vice Chairman Relationship Specialty Start Date End Date Caitlyn Bowie MD [address] [address] PCP - General Internal Medicine 05/06/21 documented as of this encounter
--- OUTSIDE RECORDS SUMMARY | 2025-03-24 15:16 | XMS_ITS | Encounter Summary ---
Author Organization [facility] and [facility] Address [address] [place] [address] Care Team Providers Care Rock Wool Insulator Name Role Phone Caitlyn Bowie MD Primary Care Provider +1- [phone] Encounter Details Date Type Department Care Team (Late st Contact Info) Description 04/28/2015 Scanned Document [facility] Health Information Management [address] [place] [address] External, Provider Social History Tobacco Use Types [...] at [facility] 240 [facility] Building [address] [place], [place] [phone] Ronald Mills MD 240 [facility] A1 [place] [address] documented as of this encounter Visit Diagnoses Not on filedocumented in this encounter Additional Health Concerns Infection Onset Date Last Indicated Resolved Time COVID-19 03/05/2022 03/05/2022 03/15/2022 7:18 PM EDT documented as of this encounter Care Teams Rock Wool Insulator Relationship Specialty Start Date End Date Caitlyn Bowie MD 3400 [facility] 1 [place] [address] PCP - General Internal Medicine 05/06/21 Henry Kelly MD Pulmonary Department 175 [facility], [address] [place] [address] Physician Pulmonary Disease 09/06/17 06/22/20 documented as of this encounter
--- OUTSIDE RECORDS SUMMARY | 2025-03-24 15:16 | XMS_ITS | Encounter Summary ---
Author Organization [facility] and [facility] Address [address] [place] [address] Care Team Providers Care Rn Liaison Name Role Phone Caitlyn Bowie MD Primary Care Provider +1- [phone] Encounter Details Date Type Department Care Team (Late st Contact Info) Description 01/28/2018 Scanned Document [facility] Health Information Management [address] [place] [address] External, Provider Social History Tobacco Use Types [...] [facility] 240 [facility] Building [address] [place], [place] [address] Ronald Mills MD [address] [place] [address] [address] [place] [address] documented as of this encounter [...] as of this encounter Care Teams Rn Liaison Relationship Specialty Start Date End Date Caitlyn Bowie MD [facility]0 [facility] 1 [place] [address] PCP - General Internal Medicine 05/06/21 Henry Kelly MD Pulmonary Department 175 [facility], [address] [place] [address] Physician Pulmonary Disease 09/06/17 06/22/20 documented as of this encounter
--- OUTSIDE RECORDS SUMMARY | 2025-03-24 15:16 | XMS_ITS | Encounter Summary ---
Author Organization [facility] and [facility] Address [address] [place] [address] Care Team Providers Care Land Title Examiner Name Role Phone Caitlyn Bowie MD Primary Care Provider +1- [phone] Encounter Details Date Type Department Care Team (Late st Contact Info) Description 02/19/2015 Scanned Document [facility] Health Information Management [address] [place] [address] External, Provider Social History Tobacco Use Types [...] [facility] 240 [facility] Building [address] [place], [place] [phone] Ronald Mills MD 240 [facility] [address] [place] [address] documented as of this encounter Procedures Procedure Name Priority Date/Time Associated Diagnosis Comments LAB SCAN Routine 02/19/2015 documented in this encounter Results * Lab Scan (02/19/2015) Blood specimen (specimen) us Provider External LAB BLOOD ORDERABLES Final Res ult [facility] documented in this encounter Visit Diagnoses Not on filedocumented in this encounter Additional Health Concerns Infection Onset Date Last Indicated Resolved Time COVID-19 03/05/2022 03/05/2022 03/15/2022 7:18 PM EDT documented as of this encounter Care Teams Land Title Examiner Relationship Specialty Start Date End Date Caitlyn Bowie MD 3400 [facility] 1 [place] [address] PCP - General Internal Medicine 05/06/21 Henry Kelly MD Pulmonary Department 175 [facility], [address] [place] [address] Physician Pulmonary Disease 09/06/17 06/22/20 documented as of this encounter
--- OUTSIDE RECORDS SUMMARY | 2025-03-24 15:16 | XMS_ITS | Encounter Summary ---
Author Organization [facility] and [facility] Address [address] [place] [address] Care Team Providers Care Administration Dean Name Role Phone Caitlyn Bowie MD Primary Care Provider +1- [phone] Encounter Details Date Type Department Care Team (Late st Contact Info) Description 04/16/2018 Scanned Document [facility] Health Information Management [address] [place] [address] External, Provider Social History Tobacco Use Types [...] [facility] Building [address] [place], [place] [phone] Ronald Mills MD 240 [facility] A1 [place] [address] documented as of this encounter Visit Diagnoses Not on filedocumented in this encounter Additional Health Concerns Infection Onset Date Last Indicated Resolved Time COVID-19 03/05/2022 03/05/2022 03/15/2022 7:18 PM EDT documented as of this encounter Care Teams Administration Dean Relationship Specialty Start Date End Date Caitlyn Bowie MD 3400 [facility] 1 [place] [address] PCP - General Internal Medicine 05/06/21 Henry Kelly MD Pulmonary Department 175 [facility], [address] [place] [address] Physician Pulmonary Disease 09/06/17 06/22/20 documented as of this encounter
--- OUTSIDE RECORDS SUMMARY | 2025-03-24 15:16 | XMS_ITS | Encounter Summary ---
Author Organization [facility] and [facility] Address [address] [place] [address] Care Team Providers Care Technology Education Teacher Name Role Phone Caitlyn Bowie MD Primary Care Provider +1- [phone] Encounter Details Date Type Department Care Team (Late st Contact Info) Description 03/14/2018 Scanned Document [facility] Health Information Management [address] [place] [address] External, Provider Social History Tobacco Use Types [...] Telemedicine [facility] at [facility] 240 [facility] Building [address] [place], [place] [id number] Ronald Mills MD [address] [place] [address] [address] [place] [address] documented as of this encounter [...] documented as of this encounter Care Teams Technology Education Teacher Relationship Specialty Start Date End Date Caitlyn Bowie MD 3400 [facility] 1 [place] [address] PCP - General Internal Medicine 05/06/21 Henry Kelly MD Pulmonary Department 175 [facility], [address] [place] [address] Physician Pulmonary Disease 09/06/17 06/22/20 documented as of this encounter
--- OUTSIDE RECORDS SUMMARY | 2025-03-24 15:16 | XMS_ITS | Encounter Summary ---
Author Organization [facility] and [facility] Address [address] [place] [address] Care Team Providers Care Issuing Operator Name Role Phone Caitlyn Bowie MD Primary Care Provider +1- [phone] Encounter Details Date Type Department Care Team (Late st Contact Info) Description 01/30/2018 Scanned Document [facility] Health Information Management [address] [place] [address] External, Provider Social History Tobacco Use Types [...] [facility] Building [address] [place] [address] Ronald Mills MD [address] [place] [address] [address]1 [place] [address] documented as of this encounter [...] End Date Caitlyn Bowie MD [facility] 1 [place] [address] PCP - General Internal Medicine 05/06/21 Henry Kelly MD Pulmonary Department 175 [facility], [address] [place] [address] Physician Pulmonary Disease 09/06/17 06/22/20 documented as of this encounter
--- OUTSIDE RECORDS SUMMARY | 2025-03-24 15:16 | XMS_ITS | Encounter Summary ---
Author Organization [facility] and [facility] Address [address] [place] [address] Care Team Providers Care Pricing Analyst Name Role Phone Caitlyn Bowie MD Primary Care Provider +1- [phone] Encounter Details Date Type Department Care Team (Late Contact Info) Description 11/18/2021 Scanned Document [facility] Health Information Management [address] [place] [address] External, Provider Social History Tobacco Use Types [...] [facility] 240 [facility] Building [address] [place], [place] [phone] Ronald Mills MD [address] [place] [address] [address]1 [place] [address] documented as of this encounter Visit Diagnoses Not on filedocumented in this encounter Additional Health Concerns Infection Onset Date Last Indicated Resolved Time COVID-19 03/05/2022 03/05/2022 03/15/2022 7:18 PM EDT Assessment Noted Time PHQ-9 Depression Total Score: 2 11/07/19 19 2:06 PM EDT documented as of this encounter Care Teams Pricing Analyst Relationship Specialty Start Date End Date Caitlyn Bowie MD [address] [address] PCP - General Internal Medicine 05/06/21 documented as of this encounter
--- OUTSIDE RECORDS SUMMARY | 2025-03-24 15:16 | XMS_ITS | Encounter Summary ---
Author Organization [facility] and [facility] Address [address] [place] [address] Care Team Providers Care Conservation Enforcement Officer Name Role Phone Caitlyn Bowie MD Primary Care Provider +1- [phone] Encounter Details Date Type Department Care Team (Late st Contact Info) Description 01/26/2018 Scanned Document [facility] Health Information Management [address] [place] [address] External, Provider Social History Tobacco Use Types [...] – [facility] 240 [facility] Building [address] [place] [address] Ronald Mills MD 240 [facility] A1 [place] [address] documented as of this encounter [...] documented as of this encounter Care Teams Conservation Enforcement Officer Relationship Specialty Start Date End Date Caitlyn Bowie MD 3400 [facility] 1 [place] [address] PCP - General Internal Medicine 05/06/21 Henry Kelly MD Pulmonary Department 175 [facility], [address] [place] [address] Physician Pulmonary Disease 09/06/17 06/22/20 documented as of this encounter
--- OUTSIDE RECORDS SUMMARY | 2025-03-24 15:16 | XMS_ITS | Encounter Summary ---
Author Organization [facility] and [facility] Address [address] [place] [address] Care Team Providers Care Parts Department Manager Name Role Phone Caitlyn Bowie MD Primary Care Provider +1- [phone] Encounter Details Date Type Department Care Team (Late st Contact Info) Description 02/02/2018 Scanned Document [facility] Health Information Management [address] [place] [address] External, Provider Social History Tobacco Use Types [...] [facility] 240 [facility] Building [address] [place], [place] [phone] Ronald Mills MD [address] [place] [address] [address]1 [place] [address] documented as of this encounter [...] as of this encounter Care Teams Parts Department Manager Relationship Specialty Start Date End Date Caitlyn Bowie MD 3400 [facility] 1 [place] [address] PCP - General Internal Medicine 05/06/21 Henry Kelly MD Pulmonary Department 175 [facility], [address] [place] [address] Physician Pulmonary Disease 09/06/17 06/22/20 documented as of this encounter
--- OUTSIDE RECORDS SUMMARY | 2025-03-24 15:16 | XMS_ITS | Encounter Summary ---
Author Organization [facility] and [facility] Address [address] [place] [address] Care Team Providers Care Fiber Machine Tender Name Role Phone Caitlyn Bowie MD Primary Care Provider +1- [phone] Encounter Details Date Type Department Care Team (Late st Contact Info) Description 04/18/2018 Scanned Document [facility] Health Information Management [address] [place] [address] External, Provider Social History Tobacco Use Types [...] at [facility] 240 [facility] Building [address] [place], [place] [address] Ronald Mills MD [address] [place] [address] [address] [place] [address] documented as [...] as of this encounter Care Teams Fiber Machine Tender Relationship Specialty Start Date End Date Caitlyn Bowie MD 3400 [facility] 1 [place] [address] PCP - General Internal Medicine 05/06/21 Henry Kelly MD Pulmonary Department 175 [facility], [address] [place] [address] Physician Pulmonary Disease 09/06/17 06/22/20 documented as of this encounter
--- OUTSIDE RECORDS SUMMARY | 2025-03-24 15:16 | XMS_ITS | Encounter Summary ---
Author Organization [facility] and [facility] Address [address] [place] [address] Care Team Providers Care Sourcer Name Role Phone Caitlyn Bowie MD Primary Care Provider +1- [phone] Encounter Details Date Type Department Care Team (Late st Contact Info) Description 12/04/2014 Scanned Document [facility] Health Information Management [address] [place] [address] External, Provider Social History Tobacco Use Types [...] at [facility] 240 [facility] Building [address] [place], [place] [phone] Ronald Mills MD 240 [facility] Max [address] [place] [address] documented as of this encounter Procedures Procedure Name Priority Date/Time Associated Diagnosis Comments LAB SCAN Routine 12/04/2014 documented in this encounter Results * Lab Scan (12/04/2014) Blood specimen (specimen) us Provider External LAB BLOOD ORDERABLES Final Res ult [facility] documented in this encounter Visit Diagnoses Not on filedocumented in this encounter Additional Health Concerns Infection Onset Date Last Indicated Resolved Time COVID-19 03/05/2022 03/05/2022 03/15/2022 7:18 PM EDT documented as of this encounter Care Teams Sourcer Relationship Specialty Start Date End Date Caitlyn Bowie MD 3400 [facility] 1 [place] [address] PCP - General Internal Medicine 05/06/21 Henry Kelly MD Pulmonary Department 175 [facility], [address] [place] [address] Physician Pulmonary Disease 09/06/17 06/22/20 documented as of this encounter
--- OUTSIDE RECORDS SUMMARY | 2025-03-24 15:16 | XMS_ITS | Encounter Summary ---
Author Organization [facility] and [facility] Address [address] [place] [address] Care Team Providers Care Cash Grain Farmer Name Role Phone Caitlyn Bowie MD Primary Care Provider +1- [phone] Encounter Details Date Type Department Care Team (Late st Contact Info) Description 03/13/2015 Scanned Document [facility] Health Information Management [address] [place] [address] External, Provider Social History Tobacco Use Types [...] [facility] Building [address] [place], [place] [address] Ronald Mills MD 240 [facility] [address] [place] [address] documented as of this encounter Procedures Procedure Name Priority Date/Time Associated Diagnosis Comments LAB SCAN Routine 02/16/2015 LAB SCAN Routine 02/16/2015 documented in this encounter Results * Lab Scan (02/16/2015) Blood specimen (specimen) us Provider External LAB BLOOD ORDERABLES Final Res ult Performing Organization Address [facility]/ZIP Co de Phone Number [facility] * Lab Scan (02/16/2015) Blood specimen (specimen) Provider External LAB BLOOD ORDERABLES Final Res ult Performing Organization Address [facility] Co de Phone Number [facility] documented in this encounter Visit Diagnoses Not on filedocumented in this encounter Additional Health Concerns Infection Onset Date Last Indicated Resolved Time COVID-19 03/05/2022 03/05/2022 03/15/2022 7:18 PM EDT documented as of this encounter Care Teams Cash Grain Farmer Relationship Specialty Start Date End Date Caitlyn Bowie MD 3400 [facility] 1 [place] [address] PCP - General Internal Medicine 05/06/21 Henry Kelly MD Pulmonary Department 175 [facility], [address] [place] [address] Physician Pulmonary Disease 09/06/17 06/22/20 documented as of this encounter
--- OUTSIDE RECORDS SUMMARY | 2025-03-24 15:16 | XMS_ITS | Encounter Summary ---
Author Organization [facility] and [facility] Address [address] [place] [address] Care Team Providers Care Train Starter Name Role Phone Caitlyn Bowie MD Primary Care Provider +1- [phone] Encounter Details Date Type Department Care Team (Late Contact Info) Description 10/29/2021 Scanned Document [facility] Health Information Management [address] [place] [address] External, Provider Social History Tobacco Use Types [...] [facility] Building [address] [place], [place] [address] Ronald Mills MD [address] [place] [address] [address]1 [place] [address] documented as of this encounter [...] as of this encounter Care Teams Train Starter Relationship Specialty Start Date End Date Caitlyn Bowie MD [address] [address] PCP - General Internal Medicine 05/06/21 documented as of this encounter
--- OUTSIDE RECORDS SUMMARY | 2025-03-24 15:16 | XMS_ITS | Encounter Summary ---
Author Organization [facility] and [facility] Address [address] [place] [address] Care Team Providers Care Foreman Shipping Department Name Role Phone Caitlyn Bowie MD Primary Care Provider +1- [phone] Reason for Visit * Reason Comments Other Encounter Details Date Type Department Care Team (Late st Contact Info) Description 01/12/2021 Telephone [facility] at [address] - [address] [phone] Ronald Mills MD [address] [place] [address] Other Social History Tobacco Use Types [...] AM EDT Lab orders were faxed to [facility] @ [phone]. Patient notified by phone. * Telephone Encounter - Kathleen Nasima - 01/12/2021 8:46 AM EDT Pt called looking to speak with Kirstin RE: lab orders sent to lab [facility] lab Looking to have labs sent there A.S.A.P at some point today She is scheduled with Dr. Mills on January 28 documented in this encounter Plan of Treatment Upcoming Encounters Date Type Department Care Team (Late st Contact Info) Description 04/25/2025 4:00 PM EDT Telemedicine Cancer [facility] at [facility] [address] [facility] Building [address] [place], [place] [address] Ronald Mills MD 240 [facility] Max [address] [place] [address] documented as of this encounter [...] End Date Caitlyn Bowie MD [address] [address] PCP - General Internal Medicine 05/06/21 documented as of this encounter
--- OUTSIDE RECORDS SUMMARY | 2025-03-24 15:16 | XMS_ITS | Encounter Summary ---
Author Organization [facility] and [facility] Address 20 [place] [address] Care Team Providers Care Billet Straightener Name Role Phone Caitlyn Bowie MD Primary Care Provider +1- [phone] Encounter Details Date Type Department Care Team (Late st Contact Info) Description 05/14/2015 Scanned Document [facility] Health Information Management [address] [place] [address] External, Provider Social History Tobacco Use Types [...] [facility] 240 [facility] Building [address] [place], [place] [phone] Ronald Mills MD 240 [facility] A1 [place] [address] documented as of this encounter Visit Diagnoses Not on filedocumented in this encounter Additional Health Concerns Infection Onset Date Last Indicated Resolved Time COVID-19 03/05/2022 03/05/2022 03/15/2022 7:18 PM EDT documented as of this encounter Care Teams Billet Straightener Relationship Specialty Start Date End Date Caitlyn Bowie MD 3400 [facility] 1 [place] [address] PCP - General Internal Medicine 05/06/21 Henry Kelly MD Pulmonary Department 175 [facility], [address] [place] [address] Physician Pulmonary Disease 09/06/17 06/22/20 documented as of this encounter
--- OUTSIDE RECORDS SUMMARY | 2025-03-24 15:16 | XMS_ITS | Encounter Summary ---
Author Organization [facility] and [facility] Address [address] [place] [address] Care Team Providers Care Wad Impregnator Name Role Phone Caitlyn Bowie MD Primary Care Provider +1- [phone] Encounter Details Date Type Department Care Team (Late st Contact Info) Description 05/01/2015 Scanned Document [facility] Health Information Management [address] [place] [address] External, Provider Social History Tobacco Use Types [...] [facility] Building [address] [place], [place] [address] Ronald Mills MD 240 [facility] Max [address] [place] [address] documented as of this encounter [...] documented as of this encounter Care Teams Wad Impregnator Relationship Specialty Start Date End Date Caitlyn Bowie MD 3400 [facility] Max 1 [place] [address] PCP - General Internal Medicine 05/06/21 Henry Kelly MD Pulmonary Department 175 [facility], [address] [place] [address] Physician Pulmonary Disease 09/06/17 06/22/20 documented as of this encounter
--- OUTSIDE RECORDS SUMMARY | 2025-03-24 15:16 | XMS_ITS | Encounter Summary ---
Author Organization [facility] and [facility] Address [address] [place] [address] Care Team Providers Care Organizational Research Consultant Name Role Phone Caitlyn Bowie MD Primary Care Provider +1- [phone] Encounter Details Date Type Department Care Team (Late st Contact Info) Description 11/18/2021 Scanned Document INTERFACE DEFAULT [address] [place] [address] System, Provider Not In Social History Tobacco [...] [facility] 240 [facility] Building [address] [place] [address] Ronald Mills MD [address] [place] [address] [address]1 [place] [address] documented as of this encounter Visit Diagnoses Not on filedocumented in this encounter Additional Health Concerns Infection Onset Date Last Indicated Resolved Time COVID-19 03/05/2022 03/05/2022 03/15/2022 7:18 PM EDT Assessment Noted Time PHQ-9 Depression Total Score: 2 11/07/19 19 2:06 PM EDT documented as of this encounter Care Teams Organizational Research Consultant Relationship Specialty Start Date End Date Caitlyn Bowie MD [address] [address] PCP - General Internal Medicine 05/06/21 documented as of this encounter
--- OUTSIDE RECORDS SUMMARY | 2025-03-24 15:16 | XMS_ITS | Encounter Summary ---
Author Organization [facility] Address [address] [place] [address] Care Team Providers Care Medical Economics Consultant Name Role Phone Caitlyn Bowie MD Primary Care Provider +1- [phone] Encounter Details Date Type Department Care Team (Late st Contact Info) Description 10/08/2021 Scanned Document INTERFACE DEFAULT [address] [place] [address] System, Provider Not In Social History Tobacco [...] [facility] 240 [facility] Building [address] [place], [place] [address] Ronald Mills MD [address] [place] [address] [address] [place] [address] documented as of this encounter [...] as of this encounter Care Teams Medical Economics Consultant Relationship Specialty Start Date End Date Caitlyn Bowie MD [address] [address] PCP - General Internal Medicine 05/06/21 documented as of this encounter
--- OUTSIDE RECORDS SUMMARY | 2025-03-24 15:16 | XMS_ITS | Encounter Summary ---
Author Organization [facility] and [facility] Address [address] [place] [address] Care Team Providers Care Auto Top Mechanic Name Role Phone Caitlyn Bowie MD Primary Care Provider +1- [phone] Encounter Details Date Type Department Care Team (Late st Contact Info) Description 06/25/2015 Scanned Document [facility] Health Information Management [address] [place] [address] External, Provider Social History Tobacco Use Types [...] [facility] 240 [facility] Building [address] [place], [place] [phone] Ronald Mills MD 240 [facility] A1 [place] [address] documented as of this encounter Visit Diagnoses Not on filedocumented in this encounter Additional Health Concerns Infection Onset Date Last Indicated Resolved Time COVID-19 03/05/2022 03/05/2022 03/15/2022 7:18 PM EDT documented as of this encounter Care Teams Auto Top Mechanic Relationship Specialty Start Date End Date Caitlyn Bowie MD 3400 [facility] 1 [place] [address] PCP - General Internal Medicine 05/06/21 Henry Kelly MD Pulmonary Department 175 [facility], [address] [place] [address] Physician Pulmonary Disease 09/06/17 06/22/20 documented as of this encounter
--- OUTSIDE RECORDS SUMMARY | 2025-03-24 15:16 | XMS_ITS | Encounter Summary ---
Author Organization [facility] and [facility] Address [address] [place] [address] Care Team Providers Care Visual Designer Name Role Phone Caitlyn Bowie MD Primary Care Provider +1- [phone] Encounter Details Date Type Department Care Team (Late st Contact Info) Description 11/09/2014 Scanned Document [facility] Health Information Management [address] [place] [address] External, Provider Social History Tobacco Use Types [...] – [facility] 240 [facility] Building [address] [place], [place] [phone] Ronald Mills MD 240 [facility] A1 [place] [address] documented as of this encounter Visit Diagnoses Not on filedocumented in this encounter Additional Health Concerns Infection Onset Date Last Indicated Resolved Time COVID-19 03/05/2022 03/05/2022 03/15/2022 7:18 PM EDT documented as of this encounter Care Teams Visual Designer Relationship Specialty Start Date End Date Caitlyn Bowie MD 3400 [facility] 1 [place] [address] PCP - General Internal Medicine 05/06/21 Henry Kelly MD Pulmonary Department 175 [facility], [address] [place] [address] Physician Pulmonary Disease 09/06/17 06/22/20 documented as of this encounter
--- OUTSIDE RECORDS SUMMARY | 2025-03-24 15:16 | XMS_ITS | Encounter Summary ---
Author Organization [facility] Address [address] [place] [address] Care Team Providers Care Volunteer Services Coordinator Name Role Phone Caitlyn Bowie MD Primary Care Provider +1- [phone] Encounter Details Date Type Department Care Team (Late st Contact Info) Description 01/28/2018 Scanned Document [facility] Health Information Management [address] [place] [address] External, Provider Social History Tobacco Use Types [...] [facility] 240 [facility] Building [address] [place], [place] [phone] Ronald Mills MD 240 [facility] A1 [place] [address] documented as of this encounter Visit Diagnoses Not on filedocumented in this encounter Additional Health Concerns Infection Onset Date Last Indicated Resolved Time COVID-19 03/05/2022 03/05/2022 03/15/2022 7:18 PM EDT documented as of this encounter Care Teams Volunteer Services Coordinator Relationship Specialty Start Date End Date Caitlyn Bowie MD 3400 [facility] 1 [place] [address] PCP - General Internal Medicine 05/06/21 Henry Kelly MD Pulmonary Department 175 [facility], [address] [place] [address] Physician Pulmonary Disease 09/06/17 06/22/20 documented as of this encounter
--- OUTSIDE RECORDS SUMMARY | 2025-03-24 15:16 | XMS_ITS | Encounter Summary ---
Author Organization [facility] and [facility] Address [address] [place] [address] Care Team Providers Care Radio Time Sales Supervisor Name Role Phone Caitlyn Bowie MD Primary Care Provider +1- [phone] Encounter Details Date Type Department Care Team (Late st Contact Info) Description 11/09/2020 Scanned Document INTERFACE DEFAULT [address] [place] [address] System, Provider Not In Social History Tobacco [...] [facility] 240 [facility] Building [address] [place] [address] Ronald Mills MD [address] [place] [address] [address]1 [place] [address] documented as of this encounter Visit Diagnoses Not on filedocumented in this encounter Additional Health Concerns Infection Onset Date Last Indicated Resolved Time COVID-19 03/05/2022 03/05/2022 03/15/2022 7:18 PM EDT Assessment Noted Time PHQ-9 Depression Total Score: 2 11/07/19 19 2:06 PM EDT documented as of this encounter Care Teams Radio Time Sales Supervisor Relationship Specialty Start Date End Date Caitlyn Bowie MD [address] [address] PCP - General Internal Medicine 05/06/21 documented as of this encounter
--- OUTSIDE RECORDS SUMMARY | 2025-03-24 15:16 | XMS_ITS | Encounter Summary ---
Author Organization [facility] and [facility] Address [address] [place] [address] Care Team Providers Care Motel Front Desk Clerk Name Role Phone Caitlyn Bowie MD Primary Care Provider +1- [phone] Encounter Details Date Type Department Care Team (Late st Contact Info) Description 03/11/2015 Scanned Document [facility] Health Information Management [address] [place] [address] External, Provider Social History Tobacco Use Types [...] [facility] Building [address] [place], [place] [id number] Ronald Mills MD 240 [facility] [address] [place] [address] documented as of this encounter Procedures Procedure Name Priority Date/Time Associated Diagnosis Comments LAB SCAN Routine 03/11/2015 documented in this encounter Results * Lab Scan (03/11/2015) Blood specimen (specimen) us Provider External LAB BLOOD ORDERABLES Edited Re sult - Final [facility] documented in this encounter Visit Diagnoses Not on filedocumented in this encounter Additional Health Concerns Infection Onset Date Last Indicated Resolved Time COVID-19 03/05/2022 03/05/2022 03/15/2022 7:18 PM EDT documented as of this encounter Care Teams Motel Front Desk Clerk Relationship Specialty Start Date End Date Caitlyn Bowie MD 3400 [facility] 1 [place] [address] PCP - General Internal Medicine 05/06/21 Henry Kelly MD Pulmonary Department 175 [facility], [address] [place] [address] Physician Pulmonary Disease 09/06/17 06/22/20 documented as of this encounter
--- OUTSIDE RECORDS SUMMARY | 2025-03-24 15:16 | XMS_ITS | Encounter Summary ---
Author Organization [facility] and [facility] Address [address] [place] [address] Care Team Providers Care Program Coordinator Name Role Phone Caitlyn Bowie MD Primary Care Provider +1- [phone] Encounter Details Date Type Department Care Team (Late st Contact Info) Description 04/28/2015 Scanned Document [facility] Health Information Management [address] [place] [address] External, Provider Social History Tobacco Use Types [...] [facility] 240 [facility] Building [address] [place], [place] [address] Ronald Mills MD 240 [facility] Max [address] [place] [address] documented as of this encounter Procedures Procedure Name Priority Date/Time Associated Diagnosis Comments LAB SCAN Routine 04/28/2015 documented in this encounter Results * Lab Scan (04/28/2015) Blood specimen (specimen) us Provider External LAB BLOOD ORDERABLES Edited Re sult - Final [facility] documented in this encounter Visit Diagnoses Not on filedocumented in this encounter Additional Health Concerns Infection Onset Date Last Indicated Resolved Time COVID-19 03/05/2022 03/05/2022 03/15/2022 7:18 PM EDT documented as of this encounter Care Teams Program Coordinator Relationship Specialty Start Date End Date Caitlyn Bowie MD 3400 [facility] 1 [place] [address] PCP - General Internal Medicine 05/06/21 Henry Kelly MD Pulmonary Department 175 [facility], [address] [place] [address] Physician Pulmonary Disease 09/06/17 06/22/20 documented as of this encounter
--- OUTSIDE RECORDS SUMMARY | 2025-03-24 15:16 | XMS_ITS | Encounter Summary ---
Author Organization [facility] and [facility] Address [address] [place] [address] Care Team Providers Care Underwriter Solicitation Director Name Role Phone Caitlyn Bowie MD Primary Care Provider +1- [phone] Encounter Details Date Type Department Care Team (Late st Contact Info) Description 01/27/2018 Scanned Document [facility] Health Information Management [address] [place] [address] External, Provider Social History Tobacco Use Types [...] [facility] 240 [facility] Building [address] [place], [place] [phone] Ronald Mills MD 240 [facility] A1 [place] [address] documented as of this encounter Visit Diagnoses Not on filedocumented in this encounter Additional Health Concerns Infection Onset Date Last Indicated Resolved Time COVID-19 03/05/2022 03/05/2022 03/15/2022 7:18 PM EDT documented as of this encounter Care Teams Underwriter Solicitation Director Relationship Specialty Start Date End Date Caitlyn Bowie MD 3400 [facility] 1 [place] [address] PCP - General Internal Medicine 05/06/21 Henry Kelly MD Pulmonary Department 175 [facility], [address] [place] [address] Physician Pulmonary Disease 09/06/17 06/22/20 documented as of this encounter
--- OUTSIDE RECORDS SUMMARY | 2025-03-24 15:16 | XMS_ITS | Encounter Summary ---
Author Organization [facility] and [facility] Address 20 [place] [address] Care Team Providers Care Rope Tow Operator Name Role Phone Caitlyn Bowie MD Primary Care Provider +1- [phone] Encounter Details Date Type Department Care Team (Late st Contact Info) Description 01/13/2021 Scanned Document [facility] at [address] [address] Ronald Mills MD [address] [address] Social History Tobacco Use Types [...] PM EDT Telemedicine Cancer Center at [address] [place] [address] Ronald Mills MD [address] [address] documented as of this encounter [...] as of this encounter Care Teams Rope Tow Operator Relationship Specialty Start Date End Date Caitlyn Bowie MD [address] [address] PCP - General Internal Medicine 05/06/21 documented as of this encounter
--- OUTSIDE RECORDS SUMMARY | 2025-03-24 15:16 | XMS_ITS | Encounter Summary ---
Author Organization [facility] and [facility] Address [address] [place] [address] Care Team Providers Care Comic Writer Name Role Phone Caitlyn Bowie MD Primary Care Provider +1- [phone] Encounter Details Date Type Department Care Team (Late st Contact Info) Description 01/27/2018 Scanned Document [facility] Health Information Management [address] [place] [address] External, Provider Social History Tobacco Use Types [...] [facility] 240 [facility] Building [address] [place] [address] Ronald Mills MD 240 [facility] A1 [place] [address] documented as of this encounter [...] documented as of this encounter Care Teams Comic Writer Relationship Specialty Start Date End Date Caitlny Bowie MD 3400 [facility] 1 [place] [address] PCP - General Internal Medicine 05/06/21 Henry Kelly MD Pulmonary Department 175 [facility], [address] [place] [address] Physician Pulmonary Disease 09/06/17 06/22/20 documented as of this encounter
--- OUTSIDE RECORDS SUMMARY | 2025-03-24 15:16 | XMS_ITS | Encounter Summary ---
Author Organization [facility] and [facility] Address 20 [place] [address] Care Team Providers Care Airline Mechanic Name Role Phone Caitlyn Bowie MD Primary Care Provider +1- [phone] Encounter Details Date Type Department Care Team (Late st Contact Info) Description 04/03/2018 Scanned Document [facility] [address] [place] [phone] Provider, historical . Social History Tobacco Use [...] [facility] 240 [facility] Building [address] [place], [place] [address] Ronald Mills MD [address] [place] [address] [address] [place] [address] documented as [...] Bowie MD 3400 [facility] 1 [place] [address] PCP - General Internal Medicine 05/06/21 Henry Kelly MD Pulmonary Department 175 [facility], [address] [place] [address] Physician Pulmonary Disease 09/06/17 06/22/20 documented as of this encounter
--- OUTSIDE RECORDS SUMMARY | 2025-03-24 15:16 | XMS_ITS | Encounter Summary ---
Author Organization [facility] and [facility] Address 20 [place] [address] Care Team Providers Care Senior Electrical Engineer Name Role Phone Caitlyn Bowie MD Primary Care Provider +1- [phone] Encounter Details Date Type Department Care Team (Late st Contact Info) Description 03/26/2015 Scanned Document Cardiovascular Medicine at [address] [place] [address] Norma Renee MD [address] [place] [phone] Social History Tobacco Use Types Packs/Day Years [...] PM EDT Telemedicine Cancer Center at [address] [place], [place] [phone] Ronald Mills MD [address] [place] [address] [address]1 [place] [address] documented as of this encounter Visit Diagnoses Not on filedocumented in this encounter Additional Health Concerns Infection Onset Date Last Indicated Resolved Time COVID-19 03/05/2022 03/05/2022 03/15/2022 7:18 PM EDT documented as of this encounter Care Teams Senior Electrical Engineer Relationship Specialty Start Date End Date Caitlyn Bowie MD 3400 [facility] 1 [place] [address] PCP - General Internal Medicine 05/06/21 Henry Kelly MD Pulmonary Department 175 [facility], [address] [place] [address] Physician Pulmonary Disease 09/06/17 06/22/20 documented as of this encounter
--- OUTSIDE RECORDS SUMMARY | 2025-03-24 15:16 | XMS_ITS | Encounter Summary ---
Author Organization [facility] and [facility] Address [address] [place] [address] Care Team Providers Care Electron Beam Welding Machine Operator Name Role Phone Caitlyn Bowie MD Primary Care Provider +1- [phone] Encounter Details Date Type Department Care Team (Late st Contact Info) Description 01/26/2018 Scanned Document [facility] Health Information Management [address] [place] [address] External, Provider Social History Tobacco Use Types [...] [facility] 240 [facility] Building [address] [place] [address] Ronald Mills MD [address] [place] [address] [address] [place] [address] documented as of this encounter [...] documented as of this encounter Care Teams Electron Beam Welding Machine Operator Relationship Specialty Start Date End Date Caitlyn Bowie MD 3400 [facility] 1 [place] [address] PCP - General Internal Medicine 05/06/21 Henry Kelly MD Pulmonary Department [address] [place] [address], [address] [place] [address] Physician Pulmonary Disease 09/06/17 06/22/20 documented as of this encounter
--- OUTSIDE RECORDS SUMMARY | 2025-03-24 15:16 | XMS_ITS | Encounter Summary ---
Author Organization [facility] and [facility] Address [address] [place] [address] Care Team Providers Care Radio Script Writer Name Role Phone Caitlyn Bowie MD Primary Care Provider +1- [phone] Encounter Details Date Type Department Care Team (Late st Contact Info) Description 11/07/2014 Scanned Document [facility] Health Information Management [address] [place] [phone] External, Provider Social History Tobacco Use Types [...] [facility] 240 [facility] Building [address] [place], [place] [address] Ronald Mills MD 240 [facility] A1 [place] [address] documented as of this encounter Visit Diagnoses Not on filedocumented in this encounter Additional Health Concerns Infection Onset Date Last Indicated Resolved Time COVID-19 03/05/2022 03/05/2022 03/15/2022 7:18 PM EDT documented as of this encounter Care Teams Radio Script Writer Relationship Specialty Start Date End Date Caitlyn Bowie MD 3400 [facility] 1 [place] [address] PCP - General Internal Medicine 05/06/21 Henry Kelly MD Pulmonary Department 175 [facility], [address] [place] [address] Physician Pulmonary Disease 09/06/17 06/22/20 documented as of this encounter
--- OUTSIDE RECORDS SUMMARY | 2025-03-24 15:16 | XMS_ITS | Encounter Summary ---
Author Organization [facility] and [facility] Address [address] [place] [address] Care Team Providers Care Mobile Battery Technician Name Role Phone Caitlyn Bowie MD Primary Care Provider +1- [phone] Encounter Details Date Type Department Care Team (Late st Contact Info) Description 01/26/2018 Scanned Document [facility] Health Information Management [address] [place] [phone] External, Provider Social History Tobacco Use Types [...] [facility] 240 [facility] Building [address] [place], [place] [phone] Ronald Mills MD [address] [place] [address] [address]1 [place] [address] documented as of this encounter [...] as of this encounter Care Teams Mobile Battery Technician Relationship Specialty Start Date End Date Caitlyn Bowie MD 3400 [facility] 1 [place] [address] PCP - General Internal Medicine 05/06/21 Henry Kelly MD Pulmonary Department 175 [facility], [address] [place] [address] Physician Pulmonary Disease 09/06/17 06/22/20 documented as of this encounter
--- OUTSIDE RECORDS SUMMARY | 2025-03-24 15:16 | XMS_ITS | Encounter Summary ---
Author Organization [facility] and [facility] Address [address] [place] [address] Care Team Providers Care Chalk Tester Name Role Phone Caitlyn Bowie MD Primary Care Provider +1- [phone] Encounter Details Date Type Department Care Team (Late st Contact Info) Description 02/02/2018 Scanned Document [facility] Health Information Management [address] [place] [address] External, Provider Social History Tobacco Use [...] [facility] 240 [facility] Building [address] [place], [place] [address] Ronald Mills MD 240 [facility] A1 [place] [address] documented as of this encounter Visit Diagnoses Not on filedocumented in this encounter Additional Health Concerns Infection Onset Date Last Indicated Resolved Time COVID-19 03/05/2022 03/05/2022 03/15/2022 7:18 PM EDT documented as of this encounter Care Teams Chalk Tester Relationship Specialty Start Date End Date Caitlyn Bowie MD 3400 [facility] 1 [place] [address] PCP - General Internal Medicine 05/06/21 Henry Kelly MD Pulmonary Department 175 [facility], [address] [place] [address] Physician Pulmonary Disease 09/06/17 06/22/20 documented as of this encounter
--- OUTSIDE RECORDS SUMMARY | 2025-03-24 15:17 | XMS_ITS | Encounter Summary ---
Author Organization [facility] and [facility] Address [address] [place] [address] Care Team Providers Care Acid Pump Operator Name Role Phone Caitlyn Bowie MD Primary Care Provider +1- [phone] Encounter Details Date Type Department Care Team (Late st Contact Info) Description 07/28/2022 Scanned Document Onco-Oncology Program at [address] [place] [address] Norma Renee MD [address] [place] [address] 2 [place] [address] Social History Tobacco Use Types [...] PM EDT Telemedicine Cancer Center at [address] [place], [place] [address] Ronald Mills MD 240 [facility] A1 [place] [address] documented as of this encounter Visit Diagnoses Not on filedocumented in this encounter Additional Health Concerns Assessment Noted Time PHQ-9 Depression Total Score: 2 11/07/19 19 2:06 PM EDT documented as of this encounter Care Teams Acid Pump Operator Relationship Specialty Start Date End Date Caitlyn Bowie MD [address] [address] PCP - General Internal Medicine 05/06/21 documented as of this encounter
--- OUTSIDE RECORDS SUMMARY | 2025-03-24 15:17 | XMS_ITS | Encounter Summary ---
Author Organization [facility] and [facility] Address [address] [place] [address] Care Team Providers Care Epic Professional Name Role Phone Caitlyn Bowie MD Primary Care Provider +1- [phone] Encounter Details Date Type Department Care Team (Late st Contact Info) Description 06/07/2021 Scanned Document Onco-Oncology Program at [address] [place] [address] Norma Renee MD [address] [place] [address] 2 [place] [address] Social History Tobacco Use Types [...] PM EDT Telemedicine Cancer Center at [address] [place], [place] [address] Ronald Mills MD 240 [facility] A1 [place] [address] documented as of this encounter Visit Diagnoses Not on filedocumented in this encounter Additional Health Concerns Infection Onset Date Last Indicated Resolved Time COVID-19 03/05/2022 03/05/2022 03/15/2022 7:18 PM EDT Assessment Noted Time PHQ-9 Depression Total Score: 2 11/07/19 19 2:06 PM EDT documented as of this encounter Care Teams Epic Professional Relationship Specialty Start Date End Date Caitlyn Bowie MD [address] [address] PCP - General Internal Medicine 05/06/21 documented as of this encounter
--- OUTSIDE RECORDS SUMMARY | 2025-03-24 15:17 | XMS_ITS | Encounter Summary ---
Author Organization [facility] and [facility] Address [address] [place] [address] Care Team Providers Care Senior Radiation Protection Technician Name Role Phone Caitlyn Bowie MD Primary Care Provider +1- [phone] Encounter Details Date Type Department Care Team (Late st Contact Info) Description 09/23/2021 Scanned Document INTERFACE DEFAULT [address] [place] [address] System, Provider Not In Social History Tobacco [...] [facility] Building [address] [place], [place] [address] Ronald Mills MD [address] [place] [address] [address] [place] [address] documented as [...] as of this encounter Care Teams Senior Radiation Protection Technician Relationship Specialty Start Date End Date Caitlyn Bowie MD [address] [address] PCP - General Internal Medicine 05/06/21 documented as of this encounter
--- OUTSIDE RECORDS SUMMARY | 2025-03-24 15:17 | XMS_ITS | Encounter Summary ---
Author Organization [facility] Address [address] [place] [address] Care Team Providers Care First Beater Name Role Phone Caitlyn Bowie MD Primary Care Provider +1- [phone] Encounter Details Date Type Department Care Team (Late st Contact Info) Description 06/07/2021 Scanned Document Onco-Oncology Program at [address] [place] [address] Norma Renee MD [address] [place] [address] 2 [place] [address] Social History Tobacco Use Types [...] PM EDT Telemedicine Cancer Center at [address] [place], [place] [address] Ronald Mills MD 240 [facility] A1 [place] [address] documented as of this encounter Visit Diagnoses Not on filedocumented in this encounter Additional Health Concerns Infection Onset Date Last Indicated Resolved Time COVID-19 03/05/2022 03/05/2022 03/15/2022 7:18 PM EDT Assessment Noted Time PHQ-9 Depression Total Score: 2 11/07/19 19 2:06 PM EDT documented as of this encounter Care Teams First Beater Relationship Specialty Start Date End Date Caitlyn Bowie MD [address] [address] PCP - General Internal Medicine 05/06/21 documented as of this encounter
--- OUTSIDE RECORDS SUMMARY | 2025-03-24 15:17 | XMS_ITS | Encounter Summary ---
Author Organization [facility] and [facility] Address [address] [place] [address] Care Team Providers Care Sewer And Drain Technician Name Role Phone Caitlyn Bowie MD Primary Care Provider +1- [phone] Encounter Details Date Type Department Care Team (Late st Contact Info) Description 09/09/2021 Scanned Document INTERFACE DEFAULT [address] [place] [address] System, Provider Not In Social History Tobacco [...] at [facility] 240 [facility] Building [address] [place] [address] Ronald Mills MD [address] [place] [address] [address] [place] [address] documented as of this encounter Visit Diagnoses Not on filedocumented in this encounter Additional Health Concerns Infection Onset Date Last Indicated Resolved Time COVID-19 03/05/2022 03/05/2022 03/15/2022 7:18 PM EDT Assessment Noted Time PHQ-9 Depression Total Score: 2 11/07/19 19 2:06 PM EDT documented as of this encounter Care Teams Sewer And Drain Technician Relationship Specialty Start Date End Date Caitlyn Bowie MD [address] [address] PCP - General Internal Medicine 05/06/21 documented as of this encounter
--- OUTSIDE RECORDS SUMMARY | 2025-03-24 15:17 | XMS_ITS | Encounter Summary ---
Author Organization [facility] Address [address] [place] [address] Care Team Providers Care Environmental Planner Name Role Phone Caitlyn Bowie MD Primary Care Provider +1- [phone] Encounter Details Date Type Department Care Team (Late st Contact Info) Description 09/24/2021 Scanned Document INTERFACE DEFAULT [address] [place] [address] System, Provider Not In Social History Tobacco [...] at [facility] 240 [facility] Building [address] [place] [address] Ronald Mills MD [address] [place] [address] [address] [place] [address] documented as of [...] as of this encounter Care Teams Environmental Planner Relationship Specialty Start Date End Date Caitlyn Bowie MD [facility] [address] [address] PCP - General Internal Medicine 05/06/21 documented as of this encounter
--- OUTSIDE RECORDS SUMMARY | 2025-03-24 15:17 | XMS_ITS | Encounter Summary ---
Author Organization [facility] and [facility] Address [address] [place] [address] Care Team Providers Care Prison Officer Name Role Phone Caitlyn Bowie MD Primary Care Provider +1- [phone] Encounter Details Date Type Department Care Team (Late st Contact Info) Description 09/10/2021 Scanned Document Cardiovascular Medicine at [address] [place] [phone] Norma Renee MD [address] [place] [phone] Social History Tobacco Use Types Packs/Day Years [...] PM EDT Telemedicine Cancer Center at [address] [place] [address] Ronald Mills MD [address] [place] [address] [address] [place] [address] documented as of this encounter Visit Diagnoses Not on filedocumented in this encounter Additional Health Concerns Infection Onset Date Last Indicated Resolved Time COVID-19 03/05/2022 03/05/2022 03/15/2022 7:18 PM EDT Assessment Noted Time PHQ-9 Depression Total Score: 2 11/07/19 19 2:06 PM EDT documented as of this encounter Care Teams Prison Officer Relationship Specialty Start Date End Date Caitlyn Bowie MD [address] [address] PCP - General Internal Medicine 05/06/21 documented as of this encounter
--- OUTSIDE RECORDS SUMMARY | 2025-03-24 15:17 | XMS_ITS | Encounter Summary ---
Author Organization [facility] and [facility] Address [address] [place] [address] Care Team Providers Care Assurance Sourcing Manager Name Role Phone Caitlyn Bowie MD Primary Care Provider +1- [phone] Encounter Details Date Type Department Care Team (Late st Contact Info) Description 04/25/2021 Scanned Document INTERFACE DEFAULT [address] [place] [address] System, Provider Not In Social History Tobacco [...] at [facility] 240 [facility] [address] [place] [address] Ronald Mills MD [address] [place] [address] [address] [place] [address] documented as of this encounter [...] as of this encounter Care Teams Assurance Sourcing Manager Relationship Specialty Start Date End Date Caitlyn Bowie MD [address] [address] PCP - General Internal Medicine 05/06/21 documented as of this encounter
--- OUTSIDE RECORDS SUMMARY | 2025-03-24 15:17 | XMS_ITS | Encounter Summary ---
Author Organization [facility] and [facility] Address [address] [place] [address] Care Team Providers Care Disk Sharpener Name Role Phone Caitlyn Bowie MD Primary Care Provider +1- [phone] Encounter Details Date Type Department Care Team (Late st Contact Info) Description 04/27/2021 Scanned Document INTERFACE DEFAULT [address] [place] [address] System, Provider Not In Social History Tobacco [...] Cancer Center at [facility] 240 [facility] [address] [place] [address] Ronald Mills MD [address] [place] [address] [address] [place] [address] documented as of this encounter [...] documented as of this encounter Care Teams Disk Sharpener Relationship Specialty Start Date End Date Caitlyn Bowie MD [address] [address] PCP - General Internal Medicine 05/06/21 documented as of this encounter
--- OUTSIDE RECORDS SUMMARY | 2025-03-24 15:17 | XMS_ITS | Encounter Summary ---
Author Organization [facility] and [facility] Address [address] [place] [address] Care Team Providers Care Manufacturing Systems Engineer Name Role Phone Caitlyn Bowie MD Primary Care Provider +1- [phone] Encounter Details Date Type Department Care Team (Late st Contact Info) Description 07/07/2021 Scanned Document INTERFACE DEFAULT [address] [place] [address] System, Provider Not In Social History Tobacco [...] [facility] 240 [facility] [address] [place] [address] Ronald Mills MD [address] [place] [address] [address]1 [place] [address] documented as of this encounter Visit Diagnoses Not on filedocumented in this encounter Additional Health Concerns Infection Onset Date Last Indicated Resolved Time COVID-19 03/05/2022 03/05/2022 03/15/2022 7:18 PM EDT Assessment Noted Time PHQ-9 Depression Total Score: 2 11/07/19 19 2:06 PM EDT documented as of this encounter Care Teams Manufacturing Systems Engineer Relationship Specialty Start Date End Date Caitlyn Bowie MD [address] [address] PCP - General Internal Medicine 05/06/21 documented as of this encounter
--- OUTSIDE RECORDS SUMMARY | 2025-03-24 15:17 | XMS_ITS | Encounter Summary ---
Author Organization [facility] and [facility] Address [address] [place] [address] Care Team Providers Care Hand Potter Name Role Phone Caitlyn Bowie MD Primary Care Provider +1- [phone] Encounter Details Date Type Department Care Team (Late st Contact Info) Description 07/28/2018 Scanned Document [facility] Health Information Management [address] [place] [address] External, Provider Social History Tobacco Use Types [...] [facility] 240 [facility] Building [address] [place], [place] [phone] Ronald Mills MD 240 [facility] A1 [place] [address] documented as of this encounter [...] as of this encounter Care Teams Hand Potter Relationship Specialty Start Date End Date Caitlyn Bowie MD [facility]0 [facility] 1 [place] [address] PCP - General Internal Medicine 05/06/21 Henry Kelly MD Pulmonary Department 175 [facility], [address] [place] [address] Physician Pulmonary Disease 09/06/17 06/22/20 documented as of this encounter
--- OUTSIDE RECORDS SUMMARY | 2025-03-24 15:17 | XMS_ITS | Encounter Summary ---
Author Organization [facility] and [facility] Address [address] [place] [address] Care Team Providers Care Short Order Fry Cook Name Role Phone Caitlyn Bowie MD Primary Care Provider +1- [phone] Encounter Details Date Type Department Care Team (Late st Contact Info) Description 04/26/2021 Scanned Document INTERFACE DEFAULT [address] [place] [address] System, Provider Not In Social History Tobacco [...] [facility] 240 [facility] Building [address] [place], [place] [phone] Ronald Mills MD [address] [place] [address] [address] [place] [address] documented as of this encounter [...] documented as of this encounter Care Teams Short Order Fry Cook Relationship Specialty Start Date End Date Caitlyn Bowie MD [address] [address] PCP - General Internal Medicine 05/06/21 documented as of this encounter
--- OUTSIDE RECORDS SUMMARY | 2025-03-24 15:17 | XMS_ITS | Encounter Summary ---
Author Organization [facility] and [facility] Address [address] [place] [address] Care Team Providers Care Manufacturing Engineer Assembly Name Role Phone Caitlyn Bowie MD Primary Care Provider +1- [phone] Encounter Details Date Type Department Care Team (Late st Contact Info) Description 04/29/2021 Scanned Document INTERFACE DEFAULT [address] [place] [address] System, Provider Not In Social History Tobacco [...] Telemedicine Cancer Center at [facility] 240 [facility] Building [address] [place] [address] Ronald Mills MD [address] [place] [address] [address] [place] [address] documented as of this encounter [...] of this encounter Care Teams Manufacturing Engineer Assembly Relationship Specialty Start Date End Date Caitlyn Bowie MD [address] [address] PCP - General Internal Medicine 05/06/21 documented as of this encounter
--- OUTSIDE RECORDS SUMMARY | 2025-03-24 15:17 | XMS_ITS | Encounter Summary ---
Author Organization [facility] and [facility] Address [address] [place] [address] Care Team Providers Care Executive Chef Name Role Phone Caitlyn Bowie MD Primary Care Provider +1- [phone] Encounter Details Date Type Department Care Team (Late st Contact Info) Description 05/05/2021 Scanned Document INTERFACE DEFAULT [address] [place] [address] System, Provider Not In Social History Tobacco [...] Center at [facility] 240 [facility] Building [address] [place] [address] Ronald Mills MD [address] [place] [address] [address] [place] [address] documented as of this encounter Visit Diagnoses Not on filedocumented in this encounter Additional Health Concerns Infection Onset Date Last Indicated Resolved Time COVID-19 03/05/2022 03/05/2022 03/15/2022 7:18 PM EDT Assessment Noted Time PHQ-9 Depression Total Score: 2 11/07/19 19 2:06 PM EDT documented as of this encounter Care Teams Executive Chef Relationship Specialty Start Date End Date Caitlyn Bowie MD [address] [address] PCP - General Internal Medicine 05/06/21 documented as of this encounter
--- OUTSIDE RECORDS SUMMARY | 2025-03-24 15:17 | XMS_ITS | Encounter Summary ---
Author Organization [facility] and [facility] Address [address] [place] [address] Care Team Providers Care Merchandising Coordinator Name Role Phone Caitlyn Bowie MD Primary Care Provider +1- [phone] Encounter Details Date Type Department Care Team (Late st Contact Info) Description 06/28/2022 Scanned Document INTERFACE DEFAULT [address] [place] [address] System, Provider Not In Social History Tobacco [...] Center at [facility] 240 [facility] Building [address] [place], [place] [phone] Ronald Mills MD [address] [place] [address] [address] [place] [address] documented as of this encounter [...] as of this encounter Care Teams Merchandising Coordinator Relationship Specialty Start Date End Date Caitlyn Bowie MD [address] [address] PCP - General Internal Medicine 05/06/21 documented as of this encounter
--- OUTSIDE RECORDS SUMMARY | 2025-03-24 15:17 | XMS_ITS | Encounter Summary ---
Author Organization [facility] and [facility] Address [address] [place] [address] Care Team Providers Care Metal Fabricating Supervisor Name Role Phone Caitlyn Bowie MD Primary Care Provider +1- [phone] Encounter Details Date Type Department Care Team (Late st Contact Info) Description 06/26/2018 Scanned Document [facility] Health Information Management [address] [place] [address] External, Provider Social History Tobacco Use Types [...] Cancer Center at [facility] [address] [facility] [address] [place], [place] [phone] Ronald Mills MD 240 [facility] A1 [place] [address] documented as of this encounter Visit Diagnoses Not on filedocumented in this encounter Additional Health Concerns Infection Onset Date Last Indicated Resolved Time COVID-19 03/05/2022 03/05/2022 03/15/2022 7:18 PM EDT documented as of this encounter Care Teams Metal Fabricating Supervisor Relationship Specialty Start Date End Date Caitlyn Bowie MD 3400 [facility] 1 [place] [address] PCP - General Internal Medicine 05/06/21 Henry Kelly MD Pulmonary Department 175 [facility], [address] [place] [address] Physician Pulmonary Disease 09/06/17 06/22/20 documented as of this encounter
--- OUTSIDE RECORDS SUMMARY | 2025-03-24 15:17 | XMS_ITS | Encounter Summary ---
Author Organization [facility] and [facility] Address [address] [place] [address] Care Team Providers Care Ditch Cleaner Name Role Phone Caitlyn Bowie MD Primary Care Provider +1- [phone] Reason for Visit * Reason Comments Advice Only mass Encounter Details Date Type Department Care Team (Late st Contact Info) Description 09/06/2021 Telephone [facility] at [address] [address] Ronald Mills MD [address] [place] [address] Advice Only (mass) Social History Tobacco [...] [facility] 240 [facility] Building [address] [place], [place] [address] Ronald Mills MD 240 [facility] [address] [place] [phone] documented as of this encounter Visit Diagnoses Not on filedocumented in this encounter Additional Health Concerns Infection Onset Date Last Indicated Resolved Time COVID-19 03/05/2022 03/05/2022 03/15/2022 7:18 PM EDT Assessment Noted Time PHQ-9 Depression Total Score: 2 11/07/19 19 2:06 PM EDT documented as of this encounter Care Teams Ditch Cleaner Relationship Specialty Start Date End Date Caitlyn Bowie MD [address] [address] PCP - General Internal Medicine 05/06/21 documented as of this encounter
--- OUTSIDE RECORDS SUMMARY | 2025-03-24 15:17 | XMS_ITS | Encounter Summary ---
Author Organization [facility] and [facility] Address [address] [place] [address] Care Team Providers Care Fiberglass Dowel Drawing Operator Name Role Phone Caitlyn Bowie MD Primary Care Provider +1- [phone] Encounter Details Date Type Department Care Team (Late st Contact Info) Description 01/31/2023 Abstract [facility] 35 [facility] [place] [address] Shilpi Romero, AVELINO Social History Tobacco Use Types Packs/Day Years [...] [facility] 240 [facility] [address] [place] [address] Ronald Mills MD [address] [place] [address] [address]1 [place] [address] documented as of this encounter Visit Diagnoses Not on filedocumented in this encounter Additional Health Concerns Assessment Noted Time PHQ-9 Depression Total Score: 2 11/07/19 19 2:06 PM EDT documented as of this encounter Care Teams Fiberglass Dowel Drawing Operator Relationship Specialty Start Date End Date Caitlyn Bowie MD [address] [address] PCP - General Internal Medicine 05/06/21 documented as of this encounter
--- OUTSIDE RECORDS SUMMARY | 2025-03-24 15:17 | XMS_ITS | Encounter Summary ---
Author Organization [facility] and [facility] Address [address] [place] [address] Care Team Providers Care Corrosion Technician Name Role Phone Caitlyn Bowie MD Primary Care Provider +1- [phone] Encounter Details Date Type Department Care Team (Late st Contact Info) Description 12/23/2022 Scanned Document INTERFACE DEFAULT [address] [place] [address] System, Provider Not In Social History Tobacco [...] [facility] Building [address] [place] [address] Ronald Mills MD [address] [place] [address] [address] [place] [address] documented as of this encounter Visit Diagnoses Not on filedocumented in this encounter Additional Health Concerns Assessment Noted Time PHQ-9 Depression Total Score: 2 11/07/19 19 2:06 PM EDT documented as of this encounter Care Teams Corrosion Technician Relationship Specialty Start Date End Date Caitlyn Bowie MD [address] [address] PCP - General Internal Medicine 05/06/21 documented as of this encounter
--- OUTSIDE RECORDS SUMMARY | 2025-03-24 15:17 | XMS_ITS | Encounter Summary ---
Author Organization [facility] and [facility] Address [address] [place] [address] Care Team Providers Care Custom Motorcycle Painter Name Role Phone Caitlyn Bowie MD Primary Care Provider +1- [phone] Encounter Details Date Type Department Care Team (Late st Contact Info) Description 04/24/2021 Scanned Document INTERFACE DEFAULT [address] [place] [address] System, Provider Not In Social History Tobacco [...] [facility] Building [address] [place], [place] [address] Ronald Mills MD [address] [place] [address] [address] [place] [address] documented as of this encounter [...] as of this encounter Care Teams Custom Motorcycle Painter Relationship Specialty Start Date End Date Caitlyn Bowie MD [address] [address] PCP - General Internal Medicine 05/06/21 documented as of this encounter
--- OUTSIDE RECORDS SUMMARY | 2025-03-24 15:17 | XMS_ITS | Encounter Summary ---
Author Organization [facility] and [facility] Address [address] [place] [place] [address] Care Team Providers Care Asbestos Shingle Inspector Name Role Phone Caitlyn Bowie MD Primary Care Provider +1- [phone] Encounter Details Date Type Department Care Team (Late st Contact Info) Description 07/26/2018 Scanned Document [facility] Health Information Management [address] [place] [address] External, Provider Social History Tobacco Use Types [...] [facility] Building [address] [place], [place] [address] Ronald Mills MD 240 [facility] A1 [place] [address] documented as of this encounter [...] as of this encounter Care Teams Asbestos Shingle Inspector Relationship Specialty Start Date End Date Ciatlyn Bowie MD 3400 [facility] 1 [place] [address] PCP - General Internal Medicine 05/06/21 Henry Kelly MD Pulmonary Department 175 [facility], [address] [place] [address] Physician Pulmonary Disease 09/06/17 06/22/20 documented as of this encounter
--- OUTSIDE RECORDS SUMMARY | 2025-03-24 15:17 | XMS_ITS | Encounter Summary ---
Author Organization [facility] and [facility] Address [address] [place] [address] Care Team Providers Care Anatomical Embalmer Name Role Phone Caitlyn Bowie MD Primary Care Provider +1- [phone] Encounter Details Date Type Department Care Team (Late st Contact Info) Description 05/17/2021 Scanned Document Cancer Center at [address] [address] External, Provider Social History Tobacco Use Types [...] Telemedicine Cancer Center at [facility] 240 [facility] Building [address] [place], [place] [address] Ronald Mills MD [address] [place] [address] [address]1 [place] [address] documented as of this encounter [...] documented as of this encounter Care Teams Anatomical Embalmer Relationship Specialty Start Date End Date Caitlyn Bowie MD [address] [address] PCP - General Internal Medicine 05/06/21 documented as of this encounter
--- OUTSIDE RECORDS SUMMARY | 2025-03-24 15:17 | XMS_ITS | Encounter Summary ---
Author Organization [facility] and [facility] Address [address] [place] [address] Care Team Providers Care Manager Manufacturing Name Role Phone Caitlyn Bowie MD Primary Care Provider +1- [phone] Encounter Details Date Type Department Care Team (Late st Contact Info) Description 09/02/2021 Scanned Document INTERFACE DEFAULT [address] [place] [address] System, Provider Not In Social History Tobacco [...] [facility] at [facility] 240 [facility] Building [address] [place], [place] [address] Ronald Mills MD [address] [place] [address] [address] [place] [address] documented as of this encounter [...] as of this encounter Care Teams Manager Manufacturing Relationship Specialty Start Date End Date Caitlyn Bowie MD [address] [address] PCP - General Internal Medicine 05/06/21 documented as of this encounter
--- OUTSIDE RECORDS SUMMARY | 2025-03-24 15:17 | XMS_ITS | Encounter Summary ---
Author Organization [facility] and [facility] Address [address] [place] [address] Care Team Providers Care Automotive Shop Foreman Name Role Phone Caitlyn Bowie MD Primary Care Provider +1- [phone] Reason for Visit * Reason Comments FYI Encounter Details Date Type Department Care Team (Late st Contact Info) Description 05/24/2021 Telephone [facility] at [facility] at [address] [place] [address] [address] [place], [place] [phone] Solo Henry MD [address] [place] [address] FYI Social History Tobacco Use Types [...] [facility] 240 [facility] Building [address] [place] [address] Ronald Mills MD 240 [facility] Max [address] [place] [address] documented as of this encounter Visit Diagnoses Not on filedocumented in this encounter Additional Health Concerns Infection Onset Date Last Indicated Resolved Time COVID-19 03/05/2022 03/05/2022 03/15/2022 7:18 PM EDT Assessment Noted Time PHQ-9 Depression Total Score: 2 11/07/19 19 2:06 PM EDT documented as of this encounter Care Teams Automotive Shop Foreman Relationship Specialty Start Date End Date Caitlyn Bowie MD 3400 [facility] 1 [place] [address] PCP - General Internal Medicine 05/06/21 documented as of this encounter
--- OUTSIDE RECORDS SUMMARY | 2025-03-24 15:17 | XMS_ITS | Encounter Summary ---
Author Organization [facility] and [facility] Address [address] [place] [address] Care Team Providers Care Environmental Projects Advisor Name Role Phone Caitlyn Bowie MD Primary Care Provider +1- [phone] Encounter Details Date Type Department Care Team (Late st Contact Info) Description 06/08/2021 Scanned Document INTERFACE DEFAULT [address] [place] [address] System, Provider Not In Social History Tobacco [...] at [facility] 240 [facility] Building [address] [place], [place] [address] Ronald Mills MD [address] [place] [address] [address]1 [place] [address] documented as of this encounter [...] as of this encounter Care Teams Environmental Projects Advisor Relationship Specialty Start Date End Date Caitlyn Bowie MD [address] [place] [address] PCP - General Internal Medicine 05/06/21 documented as of this encounter
--- OUTSIDE RECORDS SUMMARY | 2025-03-24 15:17 | XMS_ITS | Encounter Summary ---
Author Organization [facility] and [facility] Address [address] [place] [address] Care Team Providers Care Return To Service Inspector Name Role Phone Caitlyn Bowie MD Primary Care Provider +1- [phone] Encounter Details Date Type Department Care Team (Late st Contact Info) Description 08/23/2022 Abstract Cardiovascular Medicine at [address] [place] [address] Norma Renee MD [address] [place] [phone] Social History Tobacco Use Types Packs/Day Years [...] PM EDT Telemedicine Cancer Center at [address] [place] [address] Ronald Mills MD [address] [place] [address] [address] [place] [address] documented as of this encounter Visit Diagnoses Not on filedocumented in this encounter Additional Health Concerns Assessment Noted Time PHQ-9 Depression Total Score: 2 11/07/19 19 2:06 PM EDT documented as of this encounter Care Teams Return To Service Inspector Relationship Specialty Start Date End Date Caitlyn Bowie MD [address] [address] PCP - General Internal Medicine 05/06/21 documented as of this encounter
--- OUTSIDE RECORDS SUMMARY | 2025-03-24 15:17 | XMS_ITS | Encounter Summary ---
Author Organization [facility] and [facility] Address [address] [place] [address] Care Team Providers Care Marketing Copywriter Name Role Phone Caitlyn Bowie MD Primary Care Provider +1- [phone] Encounter Details Date Type Department Care Team (Late st Contact Info) Description 10/15/2018 Scanned Document [facility] Health Information Management [address] [place] [address] External, Provider Social History Tobacco Use Types [...] [facility] 240 [facility] Building [address] [place], [place] [phone] Ronald Mills MD [address] [place] [address] [address] [place] [address] documented as of this encounter Visit Diagnoses Not on filedocumented in this encounter Additional Health Concerns Infection Onset Date Last Indicated Resolved Time COVID-19 03/05/2022 03/05/2022 03/15/2022 7:18 PM EDT documented as of this encounter Care Teams Marketing Copywriter Relationship Specialty Start Date End Date Caitlyn Bowie MD 3400 [facility] 1 [place] [address] PCP - General Internal Medicine 05/06/21 Henry Kelly MD Pulmonary Department 175 [facility], [address] [place] [address] Physician Pulmonary Disease 09/06/17 06/22/20 documented as of this encounter
--- OUTSIDE RECORDS SUMMARY | 2025-03-24 15:17 | XMS_ITS | Encounter Summary ---
Author Organization [facility] and [facility] Address [address] [place] [address] Care Team Providers Care Actuarial Intern Name Role Phone Caitlyn Bowie MD Primary Care Provider +1- [phone] Encounter Details Date Type Department Care Team (Late st Contact Info) Description 07/22/2021 Scanned Document INTERFACE DEFAULT [address] [place] [address] System, Provider Not In Social History Tobacco [...] Center at [facility] 240 [facility] Building [address] [place], [place] [phone] Ronald Mills MD [address] [place] [address] [address] [place] [address] documented as of this encounter [...] as of this encounter Care Teams Actuarial Intern Relationship Specialty Start Date End Date Caitlyn Bowie MD [address] [address] PCP - General Internal Medicine 05/06/21 documented as of this encounter
--- OUTSIDE RECORDS SUMMARY | 2025-03-24 15:17 | XMS_ITS | Encounter Summary ---
Author Organization [facility] and [facility] Address [address] [place] [address] Care Team Providers Care Business Systems Manager Name Role Phone Caitlyn Bowie MD Primary Care Provider +1- [phone] Encounter Details Date Type Department Care Team (Late st Contact Info) Description 06/07/2021 Scanned Document [facility] at [address] [address] External, Provider Social History Tobacco Use Types [...] Telemedicine [facility] at [facility] 240 [facility] Building [address] [place], [place] [phone] Ronald Mills MD [address] [place] [address] [address] [place] [address] documented as of this encounter [...] End Date Caitlyn Bowie MD [address] [address] PCP - General Internal Medicine 05/06/21 documented as of this encounter
--- OUTSIDE RECORDS SUMMARY | 2025-03-24 15:17 | XMS_ITS | Encounter Summary ---
Author Organization [facility] and [facility] Address [address] [place] [address] Care Team Providers Care Financial Sales Consultant Name Role Phone Caitlyn Bowie MD Primary Care Provider +1- [phone] Reason for Visit * Reason Comments Advice Only Encounter Details Date Type Department Care Team ([facility] st Contact Info) Description 06/01/2021 Telephone [facility] [address] [phone] Ronald Mills MD [address] [place] [address] Advice Only Social History Tobacco Use [...] added that she's called before and sent [employer] messages but hasn't received a reply,[phone]. documented in this encounter Plan of Treatment Upcoming Encounters Date Type Department Care Team (Late st Contact Info) Description 04/25/2025 4:00 PM EDT Telemedicine [facility] at [facility] 240 [facility] [address] [place], [place] [address] Ronald Mills MD 240 [facility] Max [address] [place] [phone] documented as of this encounter Visit Diagnoses Not on filedocumented in this encounter Additional Health Concerns Infection Onset Date Last Indicated Resolved Time COVID-19 03/05/2022 03/05/2022 03/15/2022 7:18 PM EDT Assessment Noted Time PHQ-9 Depression Total Score: 2 11/07/19 19 2:06 PM EDT documented as of this encounter Care Teams Financial Sales Consultant Relationship Specialty Start Date End Date Caitlyn Bowie MD 3400 [facility] 1 [place] [address] PCP - General Internal Medicine 05/06/21 documented as of this encounter
--- OUTSIDE RECORDS SUMMARY | 2025-03-24 15:17 | XMS_ITS | Encounter Summary ---
Author Organization [facility] and [facility] Address [address] [place] [address] Care Team Providers Care Video Camera Operator Name Role Phone Cailtyn Bowie MD Primary Care Provider +1- [phone] Encounter Details Date Type Department Care Team (Late st Contact Info) Description 07/06/2021 Scanned Document INTERFACE DEFAULT [address] [place] [address] System, Provider Not In Social History Tobacco [...] Affairs [facility] 240 [facility] [address] [place] [address] Ronald Mills MD [address] [place] [address] [address] [place] [address] documented as of this encounter Visit Diagnoses Not on filedocumented in this encounter Additional Health Concerns Infection Onset Date Last Indicated Resolved Time COVID-19 03/05/2022 03/05/2022 03/15/2022 7:18 PM EDT Assessment Noted Time PHQ-9 Depression Total Score: 2 11/07/19 19 2:06 PM EDT documented as of this encounter Care Teams Video Camera Operator Relationship Specialty Start Date End Date Caitlyn Bowie MD [address] [address] PCP - General Internal Medicine 05/06/21 documented as of this encounter
--- OUTSIDE RECORDS SUMMARY | 2025-03-24 15:17 | XMS_ITS | Encounter Summary ---
Author Organization [facility] and [facility] Address [address] [place] [address] Care Team Providers Care Nuclear Test Technician Name Role Phone Caitlyn Bowie MD Primary Care Provider +1- [phone] Encounter Details Date Type Department Care Team (Late st Contact Info) Description 09/07/2021 Scanned Document INTERFACE DEFAULT [address] [place] [address] System, Provider Not In Social History Tobacco [...] [facility] 240 [facility] Building [address] [place], [place] [phone] Ronald Mills MD [address] [place] [address] [address] [place] [address] documented as of this encounter [...] as of this encounter Care Teams Nuclear Test Technician Relationship Specialty Start Date End Date Caitlyn Bowie MD [address] [address] PCP - General Internal Medicine 05/06/21 documented as of this encounter"
--- OUTSIDE RECORDS SUMMARY | 2025-03-24 15:17 | XMS_ITS | Encounter Summary ---
Author Organization [facility] and [facility] Address [address] [place] [address] Care Team Providers Care Change Management Name Role Phone Caitlyn Bowie MD Primary Care Provider +1- [phone] Encounter Details Date Type Department Care Team (Late st Contact Info) Description 07/30/2018 Scanned Document [facility] Health Information Management [address] [place] [address] External, Provider Social History Tobacco Use Types [...] at [facility] 240 [facility] Building [address] [place], [place] [phone] Ronald Mills MD [address] [place] [address] [address]1 [place] [address] documented as of this encounter [...] as of this encounter Care Teams Change Management Relationship Specialty Start Date End Date Caitlyn Bowie MD [facility] 1 [place] [address] PCP - General Internal Medicine 05/06/21 Henry Kelly MD Pulmonary Department 175 [facility], [address] [place] [address] Physician Pulmonary Disease 09/06/17 06/22/20 documented as of this encounter
--- OUTSIDE RECORDS SUMMARY | 2025-03-24 15:17 | XMS_ITS | Encounter Summary ---
Author Organization [facility] and [facility] Address [address] [place] [address] Care Team Providers Care Digital Asset Coordinator Name Role Phone Caitlyn Bowie MD Primary Care Provider +1- [phone] Encounter Details Date Type Department Care Team (Late st Contact Info) Description 05/27/2021 Telephone [facility] at [address] [address] Ronald Mills MD [address] [place] [address] Social History Tobacco Use Types Packs/Day [...] from Dr. Kelly office called Stated Dr. eKlly called looking to speak with Dr. Mills RE: Pt Care ( no other information was provided Hermila said) Pt isn't at there office now documented in this encounter Plan of Treatment Upcoming Encounters Date Type Department Care Team (Late st Contact Info) Description 04/25/2025 4:00 PM EDT Telemedicine Cancer Center at [facility] 240 [facility] [address] [place], [place] [address] Ronald Mills MD 240 [facility] Max [address] [place] [address] documented as of this encounter Visit Diagnoses Not on filedocumented in this encounter Additional Health Concerns Infection Onset Date Last Indicated Resolved Time COVID-19 03/05/2022 03/05/2022 03/15/2022 7:18 PM EDT Assessment Noted Time PHQ-9 Depression Total Score: 2 11/07/19 19 2:06 PM EDT documented as of this encounter Care Teams Digital Asset Coordinator Relationship Specialty Start Date End Date Caitlyn Bowie MD [address] [address] PCP - General Internal Medicine 05/06/21 documented as of this encounter
--- OUTSIDE RECORDS SUMMARY | 2025-03-24 15:17 | XMS_ITS | Encounter Summary ---
Author Organization [facility] and [facility] Address [address] [place] [address] Care Team Providers Care Health Economist Name Role Phone Caitlyn Bowie MD Primary Care Provider +1- [phone] Encounter Details Date Type Department Care Team (Late st Contact Info) Description 08/07/2018 Scanned Document [facility] Health Information Management [address] [place] [address] External, Provider Social History Tobacco Use Types [...] [facility] 240 [facility] Building [address] [place], [place] [phone] Ronald Mills MD [address] [place] [address] [address]1 [place] [address] documented as of this encounter Visit Diagnoses Not on filedocumented in this encounter Additional Health Concerns Infection Onset Date Last Indicated Resolved Time COVID-19 03/05/2022 03/05/2022 03/15/2022 7:18 PM EDT documented as of this encounter Care Teams Health Economist Relationship Specialty Start Date End Date Caitlyn Bowie MD 3400 [facility] 1 [place] [address] PCP - General Internal Medicine 05/06/21 Henry Kelly MD Pulmonary Department 175 [facility], [address] [place] [address] Physician Pulmonary Disease 09/06/17 06/22/20 documented as of this encounter
--- OUTSIDE RECORDS SUMMARY | 2025-03-24 15:17 | XMS_ITS | Encounter Summary ---
Author Organization [facility] and [facility] Address [address] [place] [address] Care Team Providers Care Baker Head Name Role Phone Caitlyn Bowie MD Primary Care Provider +1- [phone] Encounter Details Date Type Department Care Team (Late st Contact Info) Description 10/24/2022 Scanned Document INTERFACE DEFAULT [address] [place] [address] System, Provider Not In Social History Tobacco [...] [facility] at [facility] 240 [facility] Building [address] [place], [place] [phone] Ronald Mills MD [address] [place] [address] [address] [place] [address] documented as of this encounter [...] documented as of this encounter Care Teams Baker Head Relationship Specialty Start Date End Date Caitlyn Bowie MD [facility] [address] [address] PCP - General Internal Medicine 05/06/21 documented as of this encounter
--- OUTSIDE RECORDS SUMMARY | 2025-03-24 15:17 | XMS_ITS | Encounter Summary ---
Author Organization [facility] and [facility] Address [address] [place] [address] Care Team Providers Care Candles Pourer Name Role Phone Caitlyn Bowie MD Primary Care Provider +1- [phone] Encounter Details Date Type Department Care Team (Late st Contact Info) Description 04/28/2021 Scanned Document INTERFACE DEFAULT [address] [place] [address] System, Provider Not In Social History Tobacco [...] [facility] 240 [facility] Building [address] [place], [place] [phone] Ronald Mills MD [address] [place] [address] [address] [place] [address] documented as of this encounter [...] documented as of this encounter Care Teams Candles Pourer Relationship Specialty Start Date End Date Caitlyn Bowie MD [address] [address] PCP - General Internal Medicine 05/06/21 documented as of this encounter
--- OUTSIDE RECORDS SUMMARY | 2025-03-24 15:18 | XMS_ITS | Encounter Summary ---
Author Organization [facility] and [facility] Address [address] [place] [address] Care Team Providers Care Receivable Manager Name Role Phone Caitlyn Bowie MD Primary Care Provider +1- [phone] Encounter Details Date Type Department Care Team (Late st Contact Info) Description 04/22/2022 Scanned Document INTERFACE DEFAULT [address] [place] [address] System, Provider Not In Social History Tobacco [...] [facility] 240 [facility] Building [address] [place], [place] [phone] Ronald Mills MD [address] [place] [address] [address] [place] [address] documented as of this encounter [...] documented as of this encounter Care Teams Receivable Manager Relationship Specialty Start Date End Date Caitlyn Bowie MD [address] [address] PCP - General Internal Medicine 05/06/21 documented as of this encounter
--- OUTSIDE RECORDS SUMMARY | 2025-03-24 15:18 | XMS_ITS | Encounter Summary ---
Author Organization [facility] and [facility] Address [address] [place] [address] Care Team Providers Care Precision Farming Coordinator Name Role Phone Caitlyn Bowie MD Primary Care Provider +1- [phone] Encounter Details Date Type Department Care Team (Late st Contact Info) Description 04/19/2023 Scanned Document INTERFACE DEFAULT [address] [place] [address] System, Provider Not In Social History Tobacco [...] Center at [facility] 240 [facility] Building [address] [place], [place] [address] Ronald Mills MD [address] [place] [address] [address] [place] [address] documented as of this encounter [...] as of this encounter Care Teams Precision Farming Coordinator Relationship Specialty Start Date End Date Caitlyn Bowie MD [address] [address] PCP - General Internal Medicine 05/06/21 documented as of this encounter
--- OUTSIDE RECORDS SUMMARY | 2025-03-24 15:18 | XMS_ITS | Encounter Summary ---
Author Organization [facility] and [facility] Address [address] [place] [address] Care Team Providers Care Public Health Representative Name Role Phone Caitlyn Bowie MD Primary Care Provider +1- [phone] Encounter Details Date Type Department Care Team (Late st Contact Info) Description 04/28/2022 Scanned Document INTERFACE DEFAULT [address] [place] [address] System, Provider Not In Social History Tobacco [...] [facility] Center at [facility] 240 [facility] Building [address] [place], [place] [address] Ronald Mills MD [address] [place] [address] [address] [place] [address] documented as [...] of this encounter Care Teams Public Health Representative Relationship Specialty Start Date End Date Caitlyn Bowie MD [facility] [address] [address] PCP - General Internal Medicine 05/06/21 documented as of this encounter
--- OUTSIDE RECORDS SUMMARY | 2025-03-24 15:18 | XMS_ITS | Encounter Summary ---
Author Organization [facility] Address [address] [place] [address] Care Team Providers Care Phonograph Needle Tip Maker Name Role Phone Caitlyn Bowie MD Primary Care Provider +1- [phone] Encounter Details Date Type Department Care Team (Late st Contact Info) Description 06/27/2022 Scanned Document INTERFACE DEFAULT [address] [place] [address] System, Provider Not In Social History Tobacco [...] [facility] – [facility] 240 [facility] Building [address] [place], [place] [address] Ronald Mills MD [address] [place] [address] [address] [place] [address] documented as of this encounter [...] documented as of this encounter Care Teams Phonograph Needle Tip Maker Relationship Specialty Start Date End Date Caitlyn Bowie MD [facility] [address] [address] PCP - General Internal Medicine 05/06/21 documented as of this encounter
--- OUTSIDE RECORDS SUMMARY | 2025-03-24 15:18 | XMS_ITS | Encounter Summary ---
Author Organization [facility] and [facility] Address [address] [place] [address] Care Team Providers Care Vessel Scrapper Name Role Phone Caitlyn Bowie MD Primary Care Provider +1- [phone] Encounter Details Date Type Department Care Team (Late st Contact Info) Description 12/31/2015 Scanned Document [facility] [address] [place] [address] External, Provider Social History Tobacco Use Types [...] [facility] Building [address] [place], [place] [address] Ronald Mills MD [address] [place] [address] [address] [place] [address] documented as of this encounter Procedures Procedure Name Priority Date/Time Associated Diagnosis Comments LAB SCAN Routine 12/31/2015 documented in this encounter Results * Lab Scan (12/31/2015) Blood specimen (specimen) us Provider External LAB BLOOD ORDERABLES Final Res ult Performing Organization Address City/State/[facility] Co de Phone Number [facility] documented in this encounter Visit Diagnoses Not on filedocumented in this encounter Additional Health Concerns Infection Onset Date Last Indicated Resolved Time COVID-19 03/05/2022 03/05/2022 03/15/2022 7:18 PM EDT documented as of this encounter Care Teams Vessel Scrapper Relationship Specialty Start Date End Date Caitlyn Bowie MD 3400 [facility] 1 [place] [address] PCP - General Internal Medicine 05/06/21 Henry Kelly MD Pulmonary Department 175 [facility], [address] [place] [address] Physician Pulmonary Disease 09/06/17 06/22/20 documented as of this encounter
--- OUTSIDE RECORDS SUMMARY | 2025-03-24 15:18 | XMS_ITS | Encounter Summary ---
Author Organization [facility] and [facility] Address [address] [place] [address] Care Team Providers Care Electron Microscopist Name Role Phone Caitlyn Bowie MD Primary Care Provider +1- [phone] Encounter Details Date Type Department Care Team (Late st Contact Info) Description 04/13/2023 Scanned Document INTERFACE DEFAULT [address] [place] [address] System, Provider Not In Social History Tobacco [...] [facility] 240 [facility] Building [address] [place] [address] Ronald Mills MD [address] [place] [address] [address] [place] [address] documented as of this encounter [...] as of this encounter Care Teams Electron Microscopist Relationship Specialty Start Date End Date Caitlyn Bowie MD [address] [address] PCP - General Internal Medicine 05/06/21 documented as of this encounter
--- OUTSIDE RECORDS SUMMARY | 2025-03-24 15:18 | XMS_ITS | Encounter Summary ---
Author Organization [facility] and [facility] Address [address] [place] [address] Care Team Providers Care Astronomy Professor Name Role Phone Caitlyn Bowie MD Primary Care Provider +1- [phone] Encounter Details Date Type Department Care Team (Late st Contact Info) Description 06/23/2022 Scanned Document INTERFACE DEFAULT [address] [place] [address] System, Provider Not In Social History Tobacco [...] [facility] Building [address] [place] [address] Ronald Mills MD [address] [place] [address] [address]1 [place] [address] documented as of this encounter Visit Diagnoses Not on filedocumented in this encounter Additional Health Concerns Assessment Noted Time PHQ-9 Depression Total Score: 2 11/07/19 19 2:06 PM EDT documented as of this encounter Care Teams Astronomy Professor Relationship Specialty Start Date End Date Caitlyn Bowie MD [address] [address] PCP - General Internal Medicine 05/06/21 documented as of this encounter
--- OUTSIDE RECORDS SUMMARY | 2025-03-24 15:18 | XMS_ITS | Encounter Summary ---
Author Organization [facility] and [facility] Address [address] [place] [address] Care Team Providers Care Pediatric Genetic Counselor Name Role Phone Caitlyn Bowie MD Primary Care Provider +1- [phone] Encounter Details Date Type Department Care Team (Late st Contact Info) Description 09/09/2015 Scanned Document [facility] Health Information Management [address] [place] [address] External, Provider Social History Tobacco Use Types [...] Affairs [facility] 240 [facility] Building [address] [place], [place] [address] Ronald Mills MD 240 [facility] Max [address] [place] [address] documented as of this encounter Procedures Procedure Name Priority Date/Time Associated Diagnosis Comments LAB SCAN Routine 09/09/2015 documented in this encounter Results * Lab Scan (09/09/2015) Blood specimen (specimen) us Provider External LAB BLOOD ORDERABLES Final Res ult [facility] documented in this encounter Visit Diagnoses Not on filedocumented in this encounter Additional Health Concerns Infection Onset Date Last Indicated Resolved Time COVID-19 03/05/2022 03/05/2022 03/15/2022 7:18 PM EDT documented as of this encounter Care Teams Pediatric Genetic Counselor Relationship Specialty Start Date End Date Caitlyn Bowie MD 3400 [facility] 1 [place] [address] PCP - General Internal Medicine 05/06/21 Henry Kelly MD Pulmonary Department 175 [facility], [address] [place] [address] Physician Pulmonary Disease 09/06/17 06/22/20 documented as of this encounter
--- OUTSIDE RECORDS SUMMARY | 2025-03-24 15:18 | XMS_ITS | Encounter Summary ---
Author Organization [facility] and [facility] Address [address] [place] [address] Care Team Providers Care Speeder Machine Operator Name Role Phone Caitlyn Bowie MD Primary Care Provider +1- [phone] Encounter Details Date Type Department Care Team (Latest Contact Info) Description 12/25/2015 Transcribed Orders [facility] Draw Station [address] [facility] [place] [address] Osmel Briscoe MD Other abnormality of red [...] PM EDT Telemedicine Cancer Center at [address] [place], [place] [id number] Ronald Mills MD [address] [place] [address] [address] [place] [address] documented as of this encounter Results * Free kappa lambda with ratio, serum ( GH Q YH) (12/25/2015 10:09 AM EDT) Ig [place] Free Light Chain 1.84 0.33 - 1.94 mg/dL [facility] Ig Lambda Free Light Chain 1.96 0.57 - 2.63 mg/dL [facility] [place]/Lambda FLC Ratio 0.94 0.26 - 1.65 [facility] Blood specimen (specimen) 12/25/2015 10:09 AM EDT Osmel Briscoe MD LAB BLOOD ORDERABLES Final R esult Performing Organization Address [facility] Co de Phone Number [facility] [address] [place] [address] * Immunofixation, serum ( L Q YH) [...] ORDERABLES Final R esult Performing Organization Address [facility] Co de Phone Number [facility] [address] [place] [phone] * (ABNORMAL) Protein electrophoresis, serum ( GH L YH) (12/25/2015 10:09 AM EDT) Albumin Electrophoresis 3.45(L) 3.50 - 4.70 g/dL [facility] Micho-7-Qgvbfzlk 0.16 0.10 - 0.30 g/dL [facility] Kowzd-3-Gykzybnk 0.81 0.60 - 1.00 g/dL [facility] [...] ORDERABLES Final R esult Performing Organization Address City/[facility] Co de Phone Number [facility] [address] [place] [phone] * Reticulocytes (GH L Q YH) (12/25/2015 10:09 AM EDT) Reticulocyte Count 2.1 0.6 - 2.7 % [facility] Blood specimen (specimen) 12/25/2015 10:09 AM EDT Osmel Briscoe MD LAB BLOOD ORDERABLES Final R esult Performing Organization Address [facility] Co de Phone Number [facility] [address] [place] [address] * (ABNORMAL) Sedimentation rate (ESR) (12/25/2015 10:09 AM EDT) Sed Rate 27(H) 0 - 20 mm/hr [facility] Blood specimen (specimen) 12/25/2015 10:09 AM EDT Osmel Briscoe MD LAB BLOOD ORDERABLES Final R esult Performing Organization Address [facility] Co de Phone Number [facility] [address] [place] [address] * Ferritin (12/25/2015 10:09 AM EDT) Ferritin 68 9 - 120 ng/mL [facility] Blood specimen (specimen) 12/25/2015 10:09 AM EDT Osmel Briscoe MD LAB BLOOD ORDERABLES Final R esult Performing Organization Address [facility] Co de Phone Number [facility] [address] [place] [address] * Iron and TIBC (12/25/2015 10:09 AM EDT) Iron 110 50 - 170 ug/dL [facility] TIBC 290 250 - 450 ug/dL [facility] Iron Saturation 38 15 - 50 [facility] Blood specimen (specimen) 12/25/2015 10:09 AM EDT Osmel Briscoe MD LAB BLOOD ORDERABLES Final R esult Performing Organization Address [facility] Co de Phone Number [facility] [address] [place] [address] * Vitamin D 25 hydroxy (BH L [...] ORDERABLES Final R esult Performing Organization Address City/[facility]/ZIP Co de Phone Number [facility] [address] [place] [address] * TSH (BH L YH) (12/25/2015 10:09 AM EDT) TSH cancelled 0.3 - 4.2 uU/mL [facility] TSH 1.62 0.3 - 4.2 uU/mL [facility] Comment:This test is a third generation TSH assay. Blood specimen (specimen) 12/25/2015 10:09 AM EDT Osmel Briscoe MD LAB BLOOD ORDERABLES Final R esult Performing Organization Address [facility] Co de Phone Number [facility] [address] [place] [address] * (ABNORMAL) CBC and differential (12/25/2015 10:09 AM EDT) [facility] CBC with Differential See Below [facility] [...] Final R esult [facility] [address] [place] [address] documented in this encounter Visit Diagnoses Diagnosis [...] MD [facility] 1 [place] [address] PCP - General Internal Medicine 05/06/21 Henry Kelly MD Pulmonary Department [address] [facility], [address] [place] [address] Physician Pulmonary Disease 09/06/17 06/22/20 documented as of this encounter
--- OUTSIDE RECORDS SUMMARY | 2025-03-24 15:18 | XMS_ITS | Encounter Summary ---
Author Organization [facility] and [facility] Address [address] [place] [address] Care Team Providers Care Dairy Supplies Sales Representative Name Role Phone aCitlyn Bowie MD Primary Care Provider +1- [phone] Encounter Details Date Type Department Care Team (Late st Contact Info) Description 12/06/2018 Scanned Document [facility] Health Information Management [address] [place] [address] External, Provider Social History Tobacco Use Types [...] [facility] [address] [facility] [address] [place], [place] [id number] Ronald Mills MD [address] [place] [address] [address] [place] [address] documented as of this encounter [...] as of this encounter Care Teams Dairy Supplies Sales Representative Relationship Specialty Start Date End Date Caitlyn Bowie MD [address] [facility] 1 [place] [address] PCP - General Internal Medicine 05/06/21 Henry Kelly MD Pulmonary Department 175 [facility], [address] [place] [address] Physician Pulmonary Disease 09/06/17 06/22/20 documented as of this encounter
--- OUTSIDE RECORDS SUMMARY | 2025-03-24 15:18 | XMS_ITS | Encounter Summary ---
Author Organization [facility] and [facility] Address [address] [place] [address] Care Team Providers Care Bias Machine Operator Helper Name Role Phone Caitlyn Bowie MD Primary Care Provider +1- [phone] Encounter Details Date Type Department Care Team (Late st Contact Info) Description 04/12/2022 Scanned Document INTERFACE DEFAULT [address] [place] [address] System, Provider Not In Social History Tobacco [...] Telemedicine Cancer Center at [facility] [address] [facility] [address] [place] [address] Ronald Mills MD [address] [place] [address] [address] [place] [address] documented as of this encounter [...] documented as of this encounter Care Teams Bias Machine Operator Helper Relationship Specialty Start Date End Date Caitlyn Bowie MD [address] [address] PCP - General Internal Medicine 05/06/21 documented as of this encounter
--- OUTSIDE RECORDS SUMMARY | 2025-03-24 15:18 | XMS_ITS | Encounter Summary ---
Author Organization [facility] and [facility] Address [address] [place] [address] Care Team Providers Care Rabbler Name Role Phone Caitlyn Bowie MD Primary Care Provider +1- [phone] Encounter Details Date Type Department Care Team (Late st Contact Info) Description 09/24/2015 Scanned Document Digestive Diseases at [address] [facility] [address] [facility] [address] [place] [address] Kevin Espinoza MD [address] [place] [address] Social History Tobacco Use Types Packs/Day [...] 4:00 PM EDT Telemedicine Cancer Center at [address] [place], [place] [phone] Ronald Mills MD [address] [place] [address] [address] [place] [address] documented as of this encounter Visit Diagnoses Not on filedocumented in this encounter Additional Health Concerns Infection Onset Date Last Indicated Resolved Time COVID-19 03/05/2022 03/05/2022 03/15/2022 7:18 PM EDT documented as of this encounter Care Teams Rabbler Relationship Specialty Start Date End Date Caitlyn Bowie MD [address] [facility] 1 [place] [address] PCP - General Internal Medicine 05/06/21 Henry Kelly MD Pulmonary Department 175 [facility], [address] [place] [address] Physician Pulmonary Disease 09/06/17 06/22/20 documented as of this encounter
--- OUTSIDE RECORDS SUMMARY | 2025-03-24 15:18 | XMS_ITS | Encounter Summary ---
Author Organization [facility] and [facility] Address [address] [place] [address] Care Team Providers Care Milk Hauler Name Role Phone Caitlyn Bowie MD Primary Care Provider +1- [phone] Encounter Details Date Type Department Care Team (Late st Contact Info) Description 06/24/2022 Scanned Document INTERFACE DEFAULT [address] [place] [address] System, Provider Not In Social History Tobacco [...] [facility] Center at [facility] 240 [facility] Building [address] [place], [place] [id number] Ronald Mills MD [address] [place] [address] [address] [place] [address] documented as of this encounter [...] as of this encounter Care Teams Milk Hauler Relationship Specialty Start Date End Date Caitlyn Bowie MD [address] [address] PCP - General Internal Medicine 05/06/21 documented as of this encounter
--- OUTSIDE RECORDS SUMMARY | 2025-03-24 15:18 | XMS_ITS | Encounter Summary ---
Author Organization [facility] and [facility] Address [address] [place] [address] Care Team Providers Care Records Clerk Name Role Phone Caitlyn Bowie MD Primary Care Provider +1- [phone] Encounter Details Date Type Department Care Team (Late st Contact Info) Description 09/09/2015 Scanned Document [facility] Health Information Management [address] [place] [address] External, Provider Social History Tobacco Use Types [...] Cancer Center at [facility] 240 [facility] Building [address] [place], [place] [address] Ronald Mills MD [address] [facility] [address] [place] [address] documented as of this encounter Procedures Procedure Name Priority Date/Time Associated Diagnosis Comments LAB SCAN Routine 09/09/2015 documented in this encounter Results * Lab Scan (09/09/2015) Blood specimen (specimen) us Provider External LAB BLOOD ORDERABLES Final Res ult [facility] documented in this encounter Visit Diagnoses Not on filedocumented in this encounter Additional Health Concerns Infection Onset Date Last Indicated Resolved Time COVID-19 03/05/2022 03/05/2022 03/15/2022 7:18 PM EDT documented as of this encounter Care Teams Records Clerk Relationship Specialty Start Date End Date Caitlyn Bowie MD 3400 [facility] 1 [place] [address] PCP - General Internal Medicine 05/06/21 Henry Kelly MD Pulmonary Department 175 [facility], [address] [place] [address] Physician Pulmonary Disease 09/06/17 06/22/20 documented as of this encounter
--- OUTSIDE RECORDS SUMMARY | 2025-03-24 15:18 | XMS_ITS | Encounter Summary ---
Author Organization [facility] and [facility] Address [address] [place] [address] Care Team Providers Care Mammography Technician Name Role Phone Caitlyn Bowie MD Primary Care Provider +1- [phone] Encounter Details Date Type Department Care Team (Late st Contact Info) Description 09/28/2015 Scanned Document [facility] Health Information Management [address] [place] [address] External, Provider Social History Tobacco Use Types [...] [facility] 240 [facility] Building [address] [place], [place] [address] Ronald Mills MD 240 [facility] [address] [place] [address] documented as of this encounter Procedures Procedure Name Priority Date/Time Associated Diagnosis Comments LAB SCAN Routine 09/09/2015 documented in this encounter Results * Lab Scan (09/09/2015) Blood specimen (specimen) us Provider External LAB BLOOD ORDERABLES Final Res ult [facility] documented in this encounter Visit Diagnoses Not on filedocumented in this encounter Additional Health Concerns Infection Onset Date Last Indicated Resolved Time COVID-19 03/05/2022 03/05/2022 03/15/2022 7:18 PM EDT documented as of this encounter Care Teams Mammography Technician Relationship Specialty Start Date End Date Caitlyn Bowie MD 3400 [facility] 1 [place] [address] PCP - General Internal Medicine 05/06/21 Henry Kelly MD Pulmonary Department 175 [facility], [address] [place] [address] Physician Pulmonary Disease 09/06/17 06/22/20 documented as of this encounter
--- OUTSIDE RECORDS SUMMARY | 2025-03-24 15:18 | XMS_ITS | Encounter Summary ---
Author Organization [facility] and [facility] Address [address] [place] [address] Care Team Providers Care Concrete Pipe Maker Name Role Phone Caitlyn Bowie MD Primary Care Provider +1- [phone] Encounter Details Date Type Department Care Team (Late st Contact Info) Description 04/20/2023 Scanned Document INTERFACE DEFAULT [address] [place] [address] System, Provider Not In Social History Tobacco [...] Center at [facility] 240 [facility] Building [address] [place], [place] [address] Ronald Mills MD [address] [place] [address] [address] [place] [address] documented as of this encounter [...] as of this encounter Care Teams Concrete Pipe Maker Relationship Specialty Start Date End Date Caitlyn Bowie MD [address] [address] PCP - General Internal Medicine 05/06/21 documented as of this encounter
--- OUTSIDE RECORDS SUMMARY | 2025-03-24 15:18 | XMS_ITS | Encounter Summary ---
Author Organization [facility] and [facility] Address [address] [place] [address] Care Team Providers Care Interventional Radiologist Name Role Phone Caitlyn Bowie MD Primary Care Provider +1- [phone] Encounter Details Date Type Department Care Team (Late st Contact Info) Description 09/09/2015 Scanned Document [facility] Health Information Management [address] [place] [address] External, Provider Social History Tobacco Use Types [...] [facility] [address] [facility] [address] [place], [place] [address] Ronald Mills MD 240 [facility] [address] [place] [address] documented as of this encounter Procedures Procedure Name Priority Date/Time Associated Diagnosis Comments LAB SCAN Routine 09/09/2015 documented in this encounter Results * Lab Scan (09/09/2015) Blood specimen (specimen) us Provider External LAB BLOOD ORDERABLES Final Res ult Performing Organization Address City/State/[facility] Co de Phone Number [facility] documented in this encounter Visit Diagnoses Not on filedocumented in this encounter Additional Health Concerns Infection Onset Date Last Indicated Resolved Time COVID-19 03/05/2022 03/05/2022 03/15/2022 7:18 PM EDT documented as of this encounter Care Teams Interventional Radiologist Relationship Specialty Start Date End Date Caitlyn Bowie MD 3400 [facility] 1 [place] [address] PCP - General Internal Medicine 05/06/21 Henry Kelly MD Pulmonary Department 175 [facility], [address] [place] [address] Physician Pulmonary Disease 09/06/17 06/22/20 documented as of this encounter
--- OUTSIDE RECORDS SUMMARY | 2025-03-24 15:18 | XMS_ITS | Encounter Summary ---
Author Organization [facility] and [facility] Address [address] [place] [address] Care Team Providers Care General Passenger Agent Name Role Phone Caitlyn Bowie MD Primary Care Provider +1- [phone] Encounter Details Date Type Department Care Team (Late st Contact Info) Description 03/02/2022 Scanned Document [facility] Health Information Management [address] [place] [address] External, Provider Social History Tobacco Use Types [...] [facility] [address] [facility] Building [address] [place], [place] [phone] Ronald Mills MD [address] [place] [address] [address] [place] [address] documented as of this encounter Visit Diagnoses Not on filedocumented in this encounter Additional Health Concerns Infection Onset Date Last Indicated Resolved Time COVID-19 03/05/2022 03/05/2022 03/15/2022 7:18 PM EDT Assessment Noted Time PHQ-9 Depression Total Score: 2 11/07/19 19 2:06 PM EDT documented as of this encounter Care Teams General Passenger Agent Relationship Specialty Start Date End Date Caitlyn Bowie MD [address] [address] PCP - General Internal Medicine 05/06/21 documented as of this encounter
--- OUTSIDE RECORDS SUMMARY | 2025-03-24 15:18 | XMS_ITS | Encounter Summary ---
Author Organization [facility] and [facility] Address [address] [place] [address] Care Team Providers Care Regional Medical Director Name Role Phone Caitlyn Bowie MD Primary Care Provider +1- [phone] Encounter Details Date Type Department Care Team (Late st Contact Info) Description 05/17/2023 Scanned Document INTERFACE DEFAULT [address] [place] [address] System, Provider Not In Social History Tobacco [...] [facility] 240 [facility] Building [address] [place], [place] [address] Ronald Mills MD [address] [place] [address] [address] [place] [address] documented as of this encounter [...] as of this encounter Care Teams Regional Medical Director Relationship Specialty Start Date End Date Caitlyn Bowie MD [address] [address] PCP - General Internal Medicine 05/06/21 documented as of this encounter
--- OUTSIDE RECORDS SUMMARY | 2025-03-24 15:18 | XMS_ITS | Encounter Summary ---
Author Organization [facility] and [facility] Address [address] [place] [address] Care Team Providers Care Nurse Chemical Dependency Name Role Phone Caitlyn Bowie MD Primary Care Provider +1- [phone] Encounter Details Date Type Department Care Team (Late st Contact Info) Description 07/08/2022 Scanned Document Cardiovascular Medicine at [address] [place] [phone] Norma Renee MD [address] [place] [phone] Social History Tobacco Use Types Packs/Day Years [...] 4:00 PM EDT Telemedicine Cancer Center at [address] [place] [address] Ronald Mills MD [address] [place] [address] [address] [place] [address] documented as of this encounter Visit Diagnoses Not on filedocumented in this encounter Additional Health Concerns Assessment Noted Time PHQ-9 Depression Total Score: 2 11/07/19 19 2:06 PM EDT documented as of this encounter Care Teams Nurse Chemical Dependency Relationship Specialty Start Date End Date Caitlyn Bowie MD [address] [address] PCP - General Internal Medicine 05/06/21 documented as of this encounter
--- OUTSIDE RECORDS SUMMARY | 2025-03-24 15:18 | XMS_ITS | Encounter Summary ---
Author Organization [facility] and [facility] Address [address] [place] [address] Care Team Providers Care Traffic Routing Engineer Name Role Phone Caitlyn Bowie MD Primary Care Provider +1- [phone] Encounter Details Date Type Department Care Team (Late st Contact Info) Description 04/18/2022 Scanned Document INTERFACE DEFAULT [address] [place] [address] System, Provider Not In Social History Tobacco [...] [facility] [address] [facility] Building [address] [place] [address] Ronald Mills MD [address] [place] [address] [address] [place] [address] documented as of this encounter Visit Diagnoses Not on filedocumented in this encounter Additional Health Concerns Assessment Noted Time PHQ-9 Depression Total Score: 2 11/07/19 19 2:06 PM EDT documented as of this encounter Care Teams Traffic Routing Engineer Relationship Specialty Start Date End Date Caitlyn Bowie MD [address] [address] PCP - General Internal Medicine 05/06/21 documented as of this encounter
--- OUTSIDE RECORDS SUMMARY | 2025-03-24 15:18 | XMS_ITS | Encounter Summary ---
Author Organization [facility] and [facility] Address [address] [place] [address] Care Team Providers Care Swat Team Member Name Role Phone Caitlyn Bowie MD Primary Care Provider +1- [phone] Encounter Details Date Type Department Care Team (Late st Contact Info) Description 06/08/2022 Scanned Document INTERFACE DEFAULT [address] [place] [address] System, Provider Not In Social History Tobacco [...] [facility] 240 [facility] Building [address] [place], [place] [phone] Ronald Mills MD [address] [place] [address] [address] [place] [address] documented as of this encounter [...] documented as of this encounter Care Teams Swat Team Member Relationship Specialty Start Date End Date Caitlyn Bowie MD [address] [address] PCP - General Internal Medicine 05/06/21 documented as of this encounter
--- OUTSIDE RECORDS SUMMARY | 2025-03-24 15:18 | XMS_ITS | Encounter Summary ---
Author Organization [facility] and [facility] Address [address] [place] [address] Care Team Providers Care Director Of Recreation Therapy Name Role Phone Caitlyn Bowie MD Primary Care Provider +1- [phone] Encounter Details Date Type Department Care Team (Late st Contact Info) Description 04/19/2022 Scanned Document INTERFACE DEFAULT [address] [place] [phone] System, Provider Not In Social History Tobacco [...] [facility] 240 [facility] Building [address] [place], [place] [phone] Ronald Mills MD [address] [place] [address] [address] [place] [address] documented as of this encounter [...] of this encounter Care Teams Director Of Recreation Therapy Relationship Specialty Start Date End Date Caitlyn Bowie MD [address] [address] PCP - General Internal Medicine 05/06/21 documented as of this encounter
--- OUTSIDE RECORDS SUMMARY | 2025-03-24 15:18 | XMS_ITS | Encounter Summary ---
Author Organization [facility] and [facility] Address [address] [place] [address] Care Team Providers Care In House Cra Name Role Phone Caitlyn Bowie MD Primary Care Provider +1- [phone] Reason for Visit * Reason Comments Results Encounter Details Date Type Department Care Team (Late st Contact Info) Description 03/15/2022 Telephone [facility] at [address] [address] Ronald Mills MD [address] [place] [phone] Results Social History Tobacco Use Types [...] [facility] Building [address] [place], [place] [phone] Ronald Mills MD 240 [facility] [address] [place] [phone] documented as of this encounter Visit Diagnoses [...] End Date Caitlyn Bowie MD [address] [address] PCP - General Internal Medicine 05/06/21 documented as of this encounter
--- OUTSIDE RECORDS SUMMARY | 2025-03-24 15:18 | XMS_ITS | Encounter Summary ---
Author Organization [facility] and [facility] Address [address] [place] [address] Care Team Providers Care Wood Barker Name Role Phone Caitlyn Bowie MD Primary Care Provider +1- [phone] Encounter Details Date Type Department Care Team (Late st Contact Info) Description 04/16/2022 Scanned Document INTERFACE DEFAULT [address] [place] [address] System, Provider Not In Social History Tobacco [...] [facility] 240 [facility] Building [address] [place], [place] [phone] Ronald Mills MD [address] [place] [address] [address] [place] [address] documented as of this encounter [...] as of this encounter Care Teams Wood Barker Relationship Specialty Start Date End Date Caitlyn Bowie MD [address] [address] PCP - General Internal Medicine 05/06/21 documented as of this encounter
--- OUTSIDE RECORDS SUMMARY | 2025-03-24 15:18 | XMS_ITS | Encounter Summary ---
Author Organization [facility] and [facility] Address [address] [place] [address] Care Team Providers Care Paraffin Plant Operator Name Role Phone Caitlyn Bowie MD Primary Care Provider +1- [phone] Encounter Details Date Type Department Care Team (Late st Contact Info) Description 05/10/2022 Scanned Document Cardiovascular Medicine at [address] [place] [phone] Norma Renee MD [address] [place] [phone] Social History Tobacco Use Types Packs/Day Years [...] PM EDT Telemedicine Cancer Center at [address] [place] [address] Ronald Mills MD [address] [place] [address] [address] [place] [address] documented as of this encounter Visit Diagnoses Not on filedocumented in this encounter Additional Health Concerns Assessment Noted Time PHQ-9 Depression Total Score: 2 11/07/19 19 2:06 PM EDT documented as of this encounter Care Teams Paraffin Plant Operator Relationship Specialty Start Date End Date Caitlyn Bowie MD [address] [address] PCP - General Internal Medicine 05/06/21 documented as of this encounter
--- OUTSIDE RECORDS SUMMARY | 2025-03-24 15:18 | XMS_ITS | Encounter Summary ---
Author Organization [facility] and [facility] Address [address] [place] [address] Care Team Providers Care Purse Seining Hand Name Role Phone Caitlyn Bowie MD Primary Care Provider +1- [phone] Encounter Details Date Type Department Care Team (Late st Contact Info) Description 08/28/2015 Scanned Document [facility] Health Information Management [address] [place] [phone] External, Provider Social History Tobacco Use Types [...] [facility] Center at [facility] 240 [facility] Building [address] [place], [place] [phone] Ronald Mills MD 240 [facility] A1 [place] [address] documented as of this encounter Visit Diagnoses Not on filedocumented in this encounter Additional Health Concerns Infection Onset Date Last Indicated Resolved Time COVID-19 03/05/2022 03/05/2022 03/15/2022 7:18 PM EDT documented as of this encounter Care Teams Purse Seining Hand Relationship Specialty Start Date End Date Caitlyn Bowie MD 3400 [facility] 1 [place] [address] PCP - General Internal Medicine 05/06/21 Henry Kelly MD Pulmonary Department 175 [facility], [address] [place] [address] Physician Pulmonary Disease 09/06/17 06/22/20 documented as of this encounter
--- OUTSIDE RECORDS SUMMARY | 2025-03-24 15:18 | XMS_ITS | Encounter Summary ---
Author Organization [facility] and [facility] Address [address] [place] [address] Care Team Providers Care Ramp Jockey Name Role Phone Caitlyn Bowie MD Primary Care Provider +1- [phone] Encounter Details Date Type Department Care Team (Late st Contact Info) Description 09/01/2023 Scanned Document INTERFACE DEFAULT [address] [place] [address] System, Provider Not In Social History Tobacco [...] Center at [facility] 240 [facility] Building [address] [place] [address] Ronald Mills MD [address] [place] [address] [address] [place] [address] documented as of this encounter Visit Diagnoses Not on filedocumented in this encounter Additional Health Concerns Assessment Noted Time PHQ-9 Depression Total Score: 2 11/07/19 19 2:06 PM EDT documented as of this encounter Care Teams Ramp Jockey Relationship Specialty Start Date End Date Caitlyn Bowie MD [address] [address] PCP - General Internal Medicine 05/06/21 documented as of this encounter
--- OUTSIDE RECORDS SUMMARY | 2025-03-24 15:18 | XMS_ITS | Encounter Summary ---
Author Organization [facility] and [facility] Address [address] [place] [address] Care Team Providers Care Freight Broker Name Role Phone Caitlyn Bowie MD Primary Care Provider +1- [phone] Encounter Details Date Type Department Care Team (Late st Contact Info) Description 04/14/2022 Scanned Document INTERFACE DEFAULT [address] [place] [address] System, Provider Not In Social History Tobacco [...] at [facility] 240 [facility] Building [address] [place] [address] Ronald Mills MD [address] [place] [address] [address] [place] [address] documented as of this encounter Visit Diagnoses Not on filedocumented in this encounter Additional Health Concerns Assessment Noted Time PHQ-9 Depression Total Score: 2 11/07/19 19 2:06 PM EDT documented as of this encounter Care Teams Freight Broker Relationship Specialty Start Date End Date Caitlyn Bowie MD [address] [address] PCP - General Internal Medicine 05/06/21 documented as of this encounter
--- OUTSIDE RECORDS SUMMARY | 2025-03-24 15:18 | XMS_ITS | Encounter Summary ---
Author Organization [facility] and [facility] Address [address] [place] [address] Care Team Providers Care Maker Up Folding Name Role Phone Caitlyn Bowie MD Primary Care Provider +1- [phone] Encounter Details Date Type Department Care Team (Late st Contact Info) Description 10/23/2018 Scanned Document [facility] Health Information Management [address] [place] [address] External, Provider Social History Tobacco Use Types [...] [facility] Building [address] [place], [place] [phone] Ronald Mills MD [address] [place] [address] [address] [place] [address] documented as of this encounter Visit Diagnoses Not on filedocumented in this encounter Additional Health Concerns Infection Onset Date Last Indicated Resolved Time COVID-19 03/05/2022 03/05/2022 03/15/2022 7:18 PM EDT documented as of this encounter Care Teams Maker Up Folding Relationship Specialty Start Date End Date Caitlyn Bowie MD 3400 [facility] 1 [place] [address] PCP - General Internal Medicine 05/06/21 Henry Kelly MD Pulmonary Department 175 [facility], [address] [place] [address] Physician Pulmonary Disease 09/06/17 06/22/20 documented as of this encounter
--- OUTSIDE RECORDS SUMMARY | 2025-03-24 15:18 | XMS_ITS | Encounter Summary ---
Author Organization [facility] and [facility] Address [address] [place] [place] [address] Care Team Providers Care Entry Level Sales Associate Name Role Phone Caitlyn Bowie MD Primary Care Provider +1- [phone] Encounter Details Date Type Department Care Team (Late Contact Info) Description 04/12/2022 Scanned Document [facility] Health Information Management [address] [place] [phone] External, Provider Social History Tobacco Use Types [...] at [facility] 240 [facility] Building [address] [place], [place] [phone] Ronald Mills MD [address] [place] [address] [address] [place] [address] documented as of this encounter [...] of this encounter Care Teams Entry Level Sales Associate Relationship Specialty Start Date End Date Caitlyn Bowie MD [address] [address] PCP - General Internal Medicine 05/06/21 documented as of this encounter
--- OUTSIDE RECORDS SUMMARY | 2025-03-24 15:18 | XMS_ITS | Encounter Summary ---
Author Organization [facility] and [facility] Address [address] [place] [address] Care Team Providers Care Collection Systems Modeler Name Role Phone Caitlyn Bowie MD Primary Care Provider +1- [phone] Encounter Details Date Type Department Care Team (Late st Contact Info) Description 04/25/2022 Scanned Document INTERFACE DEFAULT [address] [place] [address] System, Provider Not In Social History Tobacco [...] [facility] Building [address] [place] [address] Ronald Mills MD [address] [place] [address] [address]1 [place] [address] documented as of this encounter Visit Diagnoses Not on filedocumented in this encounter Additional Health Concerns Assessment Noted Time PHQ-9 Depression Total Score: 2 11/07/19 19 2:06 PM EDT documented as of this encounter Care Teams Collection Systems Modeler Relationship Specialty Start Date End Date Caitlyn Bowie MD [address] [address] PCP - General Internal Medicine 05/06/21 documented as of this encounter
--- OUTSIDE RECORDS SUMMARY | 2025-03-24 15:18 | XMS_ITS | Encounter Summary ---
Author Organization [facility] and [facility] Address [address] [place] [address] Care Team Providers Care Personal Banking Representative Name Role Phone Caitlyn Bowie MD Primary Care Provider +1- [phone] Encounter Details Date Type Department Care Team (Late st Contact Info) Description 04/13/2022 Scanned Document INTERFACE DEFAULT [address] [place] [address] System, Provider Not In Social History Tobacco [...] [facility] Building [address] [place], [place] [phone] Ronald Mills MD [address] [place] [address] [address] [place] [address] documented as of this encounter [...] as of this encounter Care Teams Personal Banking Representative Relationship Specialty Start Date End Date Caitlyn Bowie MD [address] [address] PCP - General Internal Medicine 05/06/21 documented as of this encounter
--- OUTSIDE RECORDS SUMMARY | 2025-03-24 15:18 | XMS_ITS | Encounter Summary ---
Author Organization [facility] Address [address] [place] [address] Care Team Providers Care Supervising Architect Name Role Phone Caitlyn Bowie MD Primary Care Provider +1- [phone] Encounter Details Date Type Department Care Team (Late st Contact Info) Description 06/21/2022 Scanned Document INTERFACE DEFAULT [address] [place] [address] System, Provider Not In Social History Tobacco [...] Center at [facility] 240 [facility] Building [address] [place], [place] [phone] Ronald Mills MD [address] [place] [address] [address] [place] [address] documented as of this encounter [...] as of this encounter Care Teams Supervising Architect Relationship Specialty Start Date End Date Caitlyn Bowie MD [address] [address] PCP - General Internal Medicine 05/06/21 documented as of this encounter
--- OUTSIDE RECORDS SUMMARY | 2025-03-24 15:18 | XMS_ITS | Encounter Summary ---
Author Organization [facility] and [facility] Address [address] [place] [address] Care Team Providers Care Woodworking Machinist Name Role Phone Caitlyn Bowie MD Primary Care Provider +1- [phone] Encounter Details Date Type Department Care Team (Late st Contact Info) Description 05/02/2022 Scanned Document INTERFACE DEFAULT [address] [place] [address] System, Provider Not In Social History Tobacco [...] [facility] 240 [facility] Building [address] [place] [address] Ronald Mills MD [address] [place] [address] [address] [place] [address] documented as of this encounter [...] documented as of this encounter Care Teams Woodworking Machinist Relationship Specialty Start Date End Date Caitlyn Bowie MD [address] [address] PCP - General Internal Medicine 05/06/21 documented as of this encounter
--- OUTSIDE RECORDS SUMMARY | 2025-03-24 15:18 | XMS_ITS | Encounter Summary ---
Author Organization [facility] and [facility] Address [address] [place] [address] Care Team Providers Care Sample Case Porter Name Role Phone Caitlyn Bowie MD Primary Care Provider +1- [phone] Encounter Details Date Type Department Care Team (Late st Contact Info) Description 05/04/2022 Scanned Document INTERFACE DEFAULT [address] [place] [address] System, Provider Not In Social History Tobacco [...] at [facility] 240 [facility] Building [address] [place] [address] Ronald Mills MD [address] [place] [address] [address] [place] [address] documented as of this encounter Visit Diagnoses Not on filedocumented in this encounter Additional Health Concerns Assessment Noted Time PHQ-9 Depression Total Score: 2 11/07/19 19 2:06 PM EDT documented as of this encounter Care Teams Sample Case Porter Relationship Specialty Start Date End Date Caitlyn Bowie MD [address] [address] PCP - General Internal Medicine 05/06/21 documented as of this encounter
--- OUTSIDE RECORDS SUMMARY | 2025-03-24 15:18 | XMS_ITS | Encounter Summary ---
Author Organization [facility] and [facility] Address [address] [place] [address] Care Team Providers Care Violin Maker Hand Name Role Phone Caitlyn Bowie MD Primary Care Provider +1- [phone] Encounter Details Date Type Department Care Team (Late st Contact Info) Description 06/20/2022 Scanned Document INTERFACE DEFAULT [address] [place] [address] System, Provider Not In Social History Tobacco [...] [facility] 240 [facility] Building [address] [place], [place] [address] Ronald Mills MD [address] [place] [address] [address] [place] [address] documented as of this encounter [...] as of this encounter Care Teams Violin Maker Hand Relationship Specialty Start Date End Date Caitlyn Bowie MD [facility] [address] [address] PCP - General Internal Medicine 05/06/21 documented as of this encounter
--- OUTSIDE RECORDS SUMMARY | 2025-03-24 15:18 | XMS_ITS | Encounter Summary ---
Author Organization [facility] and [facility] Address [address] [place] [address] Care Team Providers Care Casing Fluid Tender Name Role Phone Caitlyn Bowie MD Primary Care Provider +1- [phone] Encounter Details Date Type Department Care Team (Late st Contact Info) Description 12/04/2018 Scanned Document [facility] Health Information Management [address] [place] [address] External, Provider Social History Tobacco Use Types [...] at [facility] 240 [facility] Building [address] [place], [place] [phone] Ronald Mills MD [address] [place] [address] [address] [place] [address] documented as of this encounter Visit Diagnoses Not on filedocumented in this encounter Additional Health Concerns Infection Onset Date Last Indicated Resolved Time COVID-19 03/05/2022 03/05/2022 03/15/2022 7:18 PM EDT Assessment Noted Time PHQ-9 Depression Total Score: 2 11/07/19 19 2:06 PM EDT documented as of this encounter Care Teams Casing Fluid Tender Relationship Specialty Start Date End Date Caitlyn Bowie MD 3400 [facility] Max 1 [place] [address] PCP - General Internal Medicine 05/06/21 Henry Kelly MD Pulmonary Department 175 [facility], [address] [place] [address] Physician Pulmonary Disease 09/06/17 06/22/20 documented as of this encounter
--- OUTSIDE RECORDS SUMMARY | 2025-03-24 15:18 | XMS_ITS | Encounter Summary ---
Author Organization [facility] Address [address] [place] [address] Care Team Providers Care Joint Finisher Name Role Phone Caitlyn Bowie MD Primary Care Provider +1- [phone] Encounter Details Date Type Department Care Team (Late st Contact Info) Description 05/16/2023 Scanned Document INTERFACE DEFAULT [address] [place] [phone] System, Provider Not In Social History Tobacco [...] [facility] Building [address] [place], [place] [address] Ronald Mills MD [address] [place] [address] [address] [place] [address] documented as of this encounter [...] documented as of this encounter Care Teams Joint Finisher Relationship Specialty Start Date End Date Caitlyn Bowie MD [address] [address] PCP - General Internal Medicine 05/06/21 documented as of this encounter
--- OUTSIDE RECORDS SUMMARY | 2025-03-24 15:18 | XMS_ITS | Encounter Summary ---
Author Organization [facility] Address [address] [place] [address] [address] [place] [address] Phone Care Team Providers Care Asset Protection Assistant Name Role Phone Caitlyn Bowie MD Primary Care Provider +1- [phone] Encounter Details Date Type Department Care Team (Late st Contact Info) Description 08/30/2024 [facility] 2447 [facility] 202 [place] [address] Adalgisa Whitney MD [address] [place] [address] 202 [place] [address] Social History Tobacco Use Types [...] PM EDT Telemedicine Cancer Center at [address] [place] [address] Ronald Mills MD [address] [place] [phone] documented as of this encounter Visit Diagnoses Not on filedocumented in this encounter Additional Health Concerns Assessment Noted Time PHQ-9 Depression Total Score: 2 11/07/19 19 2:06 PM EDT documented as of this encounter Care Teams Asset Protection Assistant Relationship Specialty Start Date End Date Caitlyn Bowie MD [address] [address] PCP - General Internal Medicine 05/06/21 documented as of this encounter
--- OUTSIDE RECORDS SUMMARY | 2025-03-24 15:19 | XMS_ITS | Encounter Summary ---
Author Organization [facility] Address [address] [place] [address] Care Team Providers Care Ribbon Lap Machine Tender Name Role Phone Caitlyn Bowie MD Primary Care Provider +1- [phone] Encounter Details Date Type Department Care Team (Late st Contact Info) Description 01/28/2019 Scanned Document Cardiovascular Medicine at [address] [place] [address] Cristian Arreguin MBBS [address] [place] [address] Social History Tobacco Use Types [...] PM EDT Telemedicine Cancer Center at [address] [place] [address] Ronald Mills MD [address] [place] [address] [address] [place] [address] documented as of this encounter Visit Diagnoses Not on filedocumented in this encounter Additional Health Concerns Infection Onset Date Last Indicated Resolved Time COVID-19 03/05/2022 03/05/2022 03/15/2022 7:18 PM EDT Assessment Noted Time PHQ-9 Depression Total Score: 2 11/07/19 19 2:06 PM EDT documented as of this encounter Care Teams Ribbon Lap Machine Tender Relationship Specialty Start Date End Date Caitlyn Bowie MD 3400 [facility] 1 [place] [address] PCP - General Internal Medicine 05/06/21 Henry Kelly MD Pulmonary Department [address] [place] [address], [address] [place] [address] Physician Pulmonary Disease 09/06/17 06/22/20 documented as of this encounter
--- OUTSIDE RECORDS SUMMARY | 2025-03-24 15:19 | XMS_ITS | Encounter Summary ---
Author Organization [facility] Address [address] [place] [address] Care Team Providers Care Sales Account Associate Name Role Phone Caitlyn Bowie MD Primary Care Provider +1- [phone] Encounter Details Date Type Department Care Team (Late st Contact Info) Description 11/03/2015 Scanned Document [facility] Health Information Management [address] [place] [address] External, Provider Social History Tobacco Use Types [...] Cancer Center at [facility] 240 [facility] Building [address] [place], [place] [address] Ronald Mills MD 240 [facility] Max [address] [place] [address] documented as of this encounter Procedures Procedure Name Priority Date/Time Associated Diagnosis Comments US RESULT SCAN Routine 11/03/2015 documented in this encounter Results * US Result Scan (11/03/2015) us Provider External IMG SCAN REPORTS Edited Result - Final [facility] [place], [place], [facility] documented in this encounter Visit Diagnoses Not on filedocumented in this encounter Additional Health Concerns Infection Onset Date Last Indicated Resolved Time COVID-19 03/05/2022 03/05/2022 03/15/2022 7:18 PM EDT documented as of this encounter Care Teams Sales Account Associate Relationship Specialty Start Date End Date Caitlyn Bowie MD 3400 [facility] Max 1 [place] [address] PCP - General Internal Medicine 05/06/21 Henry Kelly MD Pulmonary Department 175 [facility], [address] [place] [address] Physician Pulmonary Disease 09/06/17 06/22/20 documented as of this encounter
--- OUTSIDE RECORDS SUMMARY | 2025-03-24 15:19 | XMS_ITS | Encounter Summary ---
Author Organization [facility] and [facility] Address [address] [place] [address] Care Team Providers Care Water/Wastewater Project Manager Name Role Phone Caitlyn Bowie MD Primary Care Provider +1- [phone] Encounter Details Date Type Department Care Team (Late st Contact Info) Description 02/08/2016 Scanned Document [facility] Health Information Management [address] [place] [address] External, Provider Social History Tobacco Use Types [...] [facility] [address] [facility] [address] [place], [place] [id number] Ronald Mills MD 240 [facility] [address] [place] [address] documented as of this encounter Visit Diagnoses Not on filedocumented in this encounter Additional Health Concerns Infection Onset Date Last Indicated Resolved Time COVID-19 03/05/2022 03/05/2022 03/15/2022 7:18 PM EDT documented as of this encounter Care Teams Water/Wastewater Project Manager Relationship Specialty Start Date End Date Caitlyn Bowie MD [address] [facility] 1 [place] [address] PCP - General Internal Medicine 05/06/21 Henry Kelly MD Pulmonary Department 175 [facility], [address] [place] [address] Physician Pulmonary Disease 09/06/17 06/22/20 documented as of this encounter
--- OUTSIDE RECORDS SUMMARY | 2025-03-24 15:19 | XMS_ITS | Encounter Summary ---
Author Organization [facility] and [facility] Address [address] [place] [address] Care Team Providers Care Global Logistics Manager Name Role Phone Caitlyn Bowie MD Primary Care Provider +1- [phone] Encounter Details Date Type Department Care Team (Late st Contact Info) Description 12/28/2018 Scanned Document [facility] Health Information Management [address] [place] [address] External, Provider Social History Tobacco Use Types [...] [facility] 240 [facility] [address] [place] [address] Ronald Mills MD [address] [place] [address] [address] [place] [address] documented as of this encounter [...] of this encounter Care Teams Global Logistics Manager Relationship Specialty Start Date End Date Caitlyn Bowie MD 3400 [facility] [address] 1 [place] [address] PCP - General Internal Medicine 05/06/21 Henry Kelly MD Pulmonary Department 175 [facility], [address] [place] [address] Physician Pulmonary Disease 09/06/17 06/22/20 documented as of this encounter
--- OUTSIDE RECORDS SUMMARY | 2025-03-24 15:19 | XMS_ITS | Clinical Summary ---
[facility] Organization [facility] Address [address] [place] [address] Care Team Providers Care Screen Tender Name Role Phone Caitlyn Bowie Primary Care Provider [phone] Allergies Active Allergy Reactions Criticality Noted Date [...] Throat tightness Throat tightness Throat tightness Ipratropium [place] Unknown Medium 12/18/2021 Isosorbide Mononitrate 11/23/2020 Other [...] topic Insurance MEDICARE PART A & B [facility] Care Teams Screen Tender Relationship Specialty Start Date End Date Caitlyn Bowie [address] [place] [address] PCP - General Internal Medicine 07/18/22
--- OUTSIDE RECORDS SUMMARY | 2025-03-24 15:19 | XMS_ITS | Encounter Summary ---
Author Organization [facility] and [facility] Address [address] [place] [address] Care Team Providers Care Farmworker Animal Name Role Phone Caitlyn Bowie MD Primary Care Provider +1- [phone] Encounter Details Date Type Department Care Team (Late st Contact Info) Description 01/13/2019 Scanned Document [facility] Health Information Management [address] [place] [address] External, Provider Social History Tobacco Use [...] [facility] 240 [facility] [address] [place] [address] Ronald Mills MD [address] [place] [address] [address] [place] [address] documented as of this encounter [...] as of this encounter Care Teams Farmworker Animal Relationship Specialty Start Date End Date Caitlyn Bowie MD 3400 [facility] 1 [place] [address] PCP - General Internal Medicine 05/06/21 Henry Kelly MD Pulmonary Department 175 [facility], [address] [place] [address] Physician Pulmonary Disease 09/06/17 06/22/20 documented as of this encounter
--- OUTSIDE RECORDS SUMMARY | 2025-03-24 15:19 | XMS_ITS | Encounter Summary ---
Author Organization [facility] and [facility] Address [address] [place] [address] Care Team Providers Care Chemistry Manager Name Role Phone Caitlyn Bowie MD Primary Care Provider +1- [phone] Encounter Details Date Type Department Care Team (Late st Contact Info) Description 01/02/2019 Scanned Document [facility] Health Information Management [address] [place] [address] External, Provider Social History Tobacco Use Types [...] [facility] 240 [facility] Building [address] [place] [address] Ronald Mills MD [address] [place] [address] [address] [place] [address] documented as of this encounter [...] documented as of this encounter Care Teams Chemistry Manager Relationship Specialty Start Date End Date Caitlyn Bowei MD 3400 [facility] 1 [place] [address] PCP - General Internal Medicine 05/06/21 Henry Kelly MD Pulmonary Department 175 [facility], [address] [place] [address] Physician Pulmonary Disease 09/06/17 06/22/20 documented as of this encounter
--- OUTSIDE RECORDS SUMMARY | 2025-03-24 15:19 | XMS_ITS | Encounter Summary ---
Author Organization [facility] Address [address] [place] [address] Care Team Providers Care Crusher Operator Name Role Phone Caitlyn Bowie MD Primary Care Provider +1- [phone] Encounter Details Date Type Department Care Team (Late st Contact Info) Description 12/01/2015 Scanned Document [facility] Health Information Management [address] [place] [phone] External, Provider Social History Tobacco Use Types [...] [facility] 240 [facility] Building [address] [place], [place] [phone] Ronald Mills MD 240 [facility] Max [address] [place] [address] documented as of this encounter Procedures Procedure Name Priority Date/Time Associated Diagnosis Comments CT RESULT SCAN Routine 12/01/2015 documented in this encounter Results * CT Result Scan (12/01/2015) us Provider External IMG SCAN REPORTS Edited Result - Final [facility] [place], [facility] documented in this encounter Visit Diagnoses Not on filedocumented in this encounter Additional Health Concerns Infection Onset Date Last Indicated Resolved Time COVID-19 03/05/2022 03/05/2022 03/15/2022 7:18 PM EDT documented as of this encounter Care Teams Crusher Operator Relationship Specialty Start Date End Date Caitlyn Bowie MD 3400 [facility] Max 1 [place] [address] PCP - General Internal Medicine 05/06/21 Henry Kelly MD Pulmonary Department 175 [facility], [address] [place] [address] Physician Pulmonary Disease 09/06/17 06/22/20 documented as of this encounter
--- OUTSIDE RECORDS SUMMARY | 2025-03-24 15:19 | XMS_ITS | Encounter Summary ---
Author Organization [facility] Address [address] [place] [address] Care Team Providers Care Shipping Room Supervisor Name Role Phone Caitlyn Bowie MD Primary Care Provider +1- [phone] Encounter Details Date Type Department Care Team (Late st Contact Info) Description 04/23/2024 Scanned Document INTERFACE DEFAULT [address] [place] [address] System, Provider Not In Social History Tobacco [...] [facility] 240 [facility] Building [address] [place], [place] [id number] Ronald Mills MD [address] [place] [address] [address] [place] [address] documented as of this encounter [...] as of this encounter Care Teams Shipping Room Supervisor Relationship Specialty Start Date End Date Caitlyn Bowie MD [address] [address] PCP - General Internal Medicine 05/06/21 documented as of this encounter
--- OUTSIDE RECORDS SUMMARY | 2025-03-24 15:19 | XMS_ITS | Encounter Summary ---
Author Organization [facility] and [facility] Address [address] [place] [address] Care Team Providers Care Tobacco Packing Machine Operator Name Role Phone Caitlyn Bowie MD Primary Care Provider +1- [phone] Encounter Details Date Type Department Care Team (Late st Contact Info) Description 12/03/2015 Scanned Document [facility] Health Information Management [address] [place] [address] External, Provider Social History Tobacco Use Types [...] [facility] 240 [facility] Building [address] [place], [place] [id number] Ronald Mills MD 240 [facility] Max [address] [place] [address] documented as of this encounter Procedures Procedure Name Priority Date/Time Associated Diagnosis Comments LAB SCAN Routine 12/03/2015 documented in this encounter Results * Lab Scan (12/03/2015) Blood specimen (specimen) us Provider External LAB BLOOD ORDERABLES Edited Re sult - Final [facility] documented in this encounter Visit Diagnoses Not on filedocumented in this encounter Additional Health Concerns Infection Onset Date Last Indicated Resolved Time COVID-19 03/05/2022 03/05/2022 03/15/2022 7:18 PM EDT documented as of this encounter Care Teams Tobacco Packing Machine Operator Relationship Specialty Start Date End Date Caitlyn Bowie MD 3400 [facility] 1 [place] [address] PCP - General Internal Medicine 05/06/21 Henry Kelly MD Pulmonary Department 175 [facility], [address] [place] [address] Physician Pulmonary Disease 09/06/17 06/22/20 documented as of this encounter
--- OUTSIDE RECORDS SUMMARY | 2025-03-24 15:19 | XMS_ITS | Encounter Summary ---
Author Organization [facility] and [facility] Address [address] [place] [address] Care Team Providers Care Vehicle Refinisher Name Role Phone Caitlyn Bowie MD Primary Care Provider +1- [phone] Encounter Details Date Type Department Care Team (Late st Contact Info) Description 08/08/2024 Scanned Document INTERFACE DEFAULT [address] [place] [phone] System, Provider Not In Social History Tobacco [...] [facility] 240 [facility] Building [address] [place], [place] [address] Ronald Mills MD [address] [place] [address] [address] [place] [address] documented as of this encounter [...] as of this encounter Care Teams Vehicle Refinisher Relationship Specialty Start Date End Date Caitlyn Bowie MD [address] [address] PCP - General Internal Medicine 05/06/21 documented as of this encounter
--- OUTSIDE RECORDS SUMMARY | 2025-03-24 15:19 | XMS_ITS | Encounter Summary ---
Author Organization [facility] and [facility] Address [address] [place] [address] Care Team Providers Care Mechanic Sound Technician Name Role Phone Caitlyn Bowie MD Primary Care Provider +1- [phone] Encounter Details Date Type Department Care Team (Late st Contact Info) Description 09/23/2024 Scanned Document INTERFACE DEFAULT [address] [place] [address] System, Provider Not In Social History Tobacco [...] [facility] 240 [facility] Building [address] [place], [place] [address] Ronald Mills MD [address] [place] [address] [address] [place] [address] documented as of this encounter [...] as of this encounter Care Teams Mechanic Sound Technician Relationship Specialty Start Date End Date Caitlyn Bowie MD [address] [address] PCP - General Internal Medicine 05/06/21 documented as of this encounter
--- OUTSIDE RECORDS SUMMARY | 2025-03-24 15:19 | XMS_ITS | Encounter Summary ---
Author Organization [facility] Address [address] [place] [address] Care Team Providers Care Wet Crown Blocking Operator Name Role Phone Caitlyn Bowie MD Primary Care Provider +1- [phone] Encounter Details Date Type Department Care Team (Late st Contact Info) Description 01/08/2019 Scanned Document [facility] Health Information Management [address] [place] [address] External, Provider Social History Tobacco Use Types [...] [facility] Building [address] [place] [address] Ronald Mills MD [address] [place] [address] [address] [place] [address] documented as of this encounter [...] as of this encounter Care Teams Wet Crown Blocking Operator Relationship Specialty Start Date End Date Caitlyn Bowie MD 3400 [facility] 1 [place] [address] PCP - General Internal Medicine 05/06/21 Henry Kelly MD Pulmonary Department 175 [facility], [address] [place] [address] Physician Pulmonary Disease 09/06/17 06/22/20 documented as of this encounter
--- OUTSIDE RECORDS SUMMARY | 2025-03-24 15:19 | XMS_ITS | Encounter Summary ---
Author Organization [facility] Address [address] [place] [address] Care Team Providers Care Residential Solar Consultant Name Role Phone Caitlyn Bowei MD Primary Care Provider +1- [phone] Encounter Details Date Type Department Care Team (Late st Contact Info) Description 03/12/2019 Scanned Document [facility] Health Information Management [address] [place] [address] External, Provider Social History Tobacco Use Types [...] [facility] 240 [facility] Building [address] [place] [address] Ronald Mills MD [address] [place] [address] [address] [place] [address] documented as of this encounter [...] as of this encounter Care Teams Residential Solar Consultant Relationship Specialty Start Date End Date Caitlyn Bowie MD 3400 [facility] 1 [place] [address] PCP - General Internal Medicine 05/06/21 Henry Kelly MD Pulmonary Department 175 [facility], [address] [place] [address] Physician Pulmonary Disease 09/06/17 06/22/20 documented as of this encounter
--- OUTSIDE RECORDS SUMMARY | 2025-03-24 15:19 | XMS_ITS | Encounter Summary ---
Author Organization [facility] and [facility] Address [address] [place] [address] Care Team Providers Care Stretcher Drier Operator Name Role Phone Caitlyn Bowie MD Primary Care Provider +1- [phone] Encounter Details Date Type Department Care Team (Late st Contact Info) Description 01/08/2022 Scanned Document INTERFACE DEFAULT [address] [place] [address] System, Provider Not In Social History Tobacco [...] [facility] 240 [facility] Building [address] [place], [place] [address] Ronald Mills MD [address] [place] [address] [address] [place] [address] documented as of this encounter [...] as of this encounter Care Teams Stretcher Drier Operator Relationship Specialty Start Date End Date Caitlyn Bowie MD [address] [address] PCP - General Internal Medicine 05/06/21 documented as of this encounter
--- OUTSIDE RECORDS SUMMARY | 2025-03-24 15:19 | XMS_ITS | Encounter Summary ---
Author Organization [facility] and [facility] Address [address] [place] [address] Care Team Providers Care Patient Registration Representative Name Role Phone Caitlyn Bowie MD Primary Care Provider +1- [phone] Encounter Details Date Type Department Care Team (Late st Contact Info) Description 04/19/2024 Scanned Document INTERFACE DEFAULT [address] [place] [address] System, Provider Not In Social History Tobacco [...] [facility] 240 [facility] Building [address] [place], [place] [address] Ronald Mills MD [address] [place] [address] [address] [place] [address] documented as of this [...] as of this encounter Care Teams Patient Registration Representative Relationship Specialty Start Date End Date Caitlyn Bowie MD [address] [address] PCP - General Internal Medicine 05/06/21 documented as of this encounter
--- OUTSIDE RECORDS SUMMARY | 2025-03-24 15:19 | XMS_ITS | Encounter Summary ---
Author Organization [facility] and [facility] Address [address] [place] [address] Care Team Providers Care Geospatial Information Scientist Name Role Phone Caitlyn Bowie MD Primary Care Provider +1- [phone] Encounter Details Date Type Department Care Team (Late st Contact Info) Description 06/17/2016 Scanned Document [facility] Health Information Management [address] [place] [address] External, Provider Social History Tobacco Use Types [...] [facility] 240 [facility] Building [address] [place], [place] [address] Ronald Mills MD 240 [facility] A1 [place] [address] documented as of this encounter Visit Diagnoses Not on filedocumented in this encounter Additional Health Concerns Infection Onset Date Last Indicated Resolved Time COVID-19 03/05/2022 03/05/2022 03/15/2022 7:18 PM EDT documented as of this encounter Care Teams Geospatial Information Scientist Relationship Specialty Start Date End Date Caitlyn Bowie MD 3400 [facility] 1 [place] [address] PCP - General Internal Medicine 05/06/21 Henry Kelly MD Pulmonary Department 175 [facility], [address] [place] [address] Physician Pulmonary Disease 09/06/17 06/22/20 documented as of this encounter
--- OUTSIDE RECORDS SUMMARY | 2025-03-24 15:19 | XMS_ITS | Encounter Summary ---
Author Organization [facility] Address [address] [place] [address] Care Team Providers Care Oil Burner Journeyman Name Role Phone Caitlyn Bowie MD Primary Care Provider +1- [phone] Encounter Details Date Type Department Care Team (Late st Contact Info) Description 04/08/2024 Scanned Document INTERFACE DEFAULT [address] [place] [address] System, Provider Not In Social History Tobacco [...] [facility] 240 [facility] Building [address] [place], [place] [address] Ronald Mills MD [address] [place] [address] [address] [place] [address] documented as of this encounter [...] as of this encounter Care Teams Oil Burner Journeyman Relationship Specialty Start Date End Date Caitlyn Bowie MD [address] [address] PCP - General Internal Medicine 05/06/21 documented as of this encounter
--- OUTSIDE RECORDS SUMMARY | 2025-03-24 15:19 | XMS_ITS | Encounter Summary ---
Author Organization [facility] Address [address] [place] [address] Care Team Providers Care Steel Buffer Name Role Phone Caitlyn Bowie MD Primary Care Provider +1- [phone] Encounter Details Date Type Department Care Team (Late st Contact Info) Description 09/15/2024 Scanned Document INTERFACE DEFAULT [address] [place] [address] System, Provider Not In Social History Tobacco [...] [facility] 240 [facility] Building [address] [place], [place] [address] Ronald Mills MD [address] [place] [address] [address] [place] [address] documented as of this encounter [...] as of this encounter Care Teams Steel Buffer Relationship Specialty Start Date End Date Caitlyn Bowie MD [address] [address] PCP - General Internal Medicine 05/06/21 documented as of this encounter
--- OUTSIDE RECORDS SUMMARY | 2025-03-24 15:19 | XMS_ITS | Encounter Summary ---
Author Organization [facility] and [facility] Address [address] [place] [address] Care Team Providers Care Manager Chemical Name Role Phone Caitlyn Bowie MD Primary Care Provider +1- [phone] Encounter Details Date Type Department Care Team (Late st Contact Info) Description 01/17/2019 Scanned Document [facility] Health Information Management [address] [place] [address] External, Provider Social History Tobacco Use Types [...] [facility] 240 [facility] Building [address] [place] [address] Ronald Mills MD [address] [place] [address] [address] [place] [address] documented as of this encounter [...] as of this encounter Care Teams Manager Chemical Relationship Specialty Start Date End Date Caitlyn Bowie MD 3400 [facility] 1 [place] [address] PCP - General Internal Medicine 05/06/21 Henry Kelly MD Pulmonary Department 175 [facility], [address] [place] [address] Physician Pulmonary Disease 09/06/17 06/22/20 documented as of this encounter
--- OUTSIDE RECORDS SUMMARY | 2025-03-24 15:19 | XMS_ITS | Encounter Summary ---
Author Organization [facility] and [facility] Address [address] [place] [address] Care Team Providers Care Loading Dock Helper Name Role Phone Caitlyn Bowie MD Primary Care Provider +1- [phone] Encounter Details Date Type Department Care Team (Late st Contact Info) Description 12/27/2018 Scanned Document [facility] Health Information Management [address] [place] [address] External, Provider Social History Tobacco Use Types [...] [facility] 240 [facility] Building [address] [place] [address] Ronald Mills MD [address] [place] [address] [address] [place] [address] documented as of this encounter [...] documented as of this encounter Care Teams Loading Dock Helper Relationship Specialty Start Date End Date Caitlyn Bowie MD 3400 [facility] 1 [place] [address] PCP - General Internal Medicine 05/06/21 Henry Kelly MD Pulmonary Department 175 [facility], [address] [place] [address] Physician Pulmonary Disease 09/06/17 06/22/20 documented as of this encounter
--- OUTSIDE RECORDS SUMMARY | 2025-03-24 15:19 | XMS_ITS | Encounter Summary ---
Author Organization [facility] Address [address] [place] [address] Care Team Providers Care Recoating Machine Operator Name Role Phone Caitlyn Bowie MD Primary Care Provider +1- [phone] Encounter Details Date Type Department Care Team (Late st Contact Info) Description 04/11/2019 Scanned Document [facility] Health Information Management [address] [place] [address] External, Provider Social History Tobacco Use [...] [facility] Building [address] [place] [address] Ronald Mills MD [address] [place] [address] [address] [place] [address] documented as of this encounter [...] documented as of this encounter Care Teams Recoating Machine Operator Relationship Specialty Start Date End Date Caitlyn Bowie MD 3400 [facility] 1 [place] [address] PCP - General Internal Medicine 05/06/21 Henry Kelly MD Pulmonary Department 175 [facility], [address] [place] [address] Physician Pulmonary Disease 09/06/17 06/22/20 documented as of this encounter
--- OUTSIDE RECORDS SUMMARY | 2025-03-24 15:19 | XMS_ITS | Encounter Summary ---
Author Organization [facility] and [facility] Address [address] [place] [phone] Care Team Providers Care Family Manager Name Role Phone Caitlyn Bowie MD Primary Care Provider +1- [phone] Encounter Details Date Type Department Care Team (Late st Contact Info) Description 01/30/2019 Scanned Document [facility] Health Information Management [address] [place] [address] External, Provider Social History Tobacco Use Types [...] Center at [facility] [address] [facility] [address] [place] [address] Ronald Mills MD [address] [place] [address] [address] [place] [address] documented as of this encounter [...] as of this encounter Care Teams Family Manager Relationship Specialty Start Date End Date Caitlyn Bowie MD 3400 [facility] 1 [place] [address] PCP - General Internal Medicine 05/06/21 Henry Kelly MD Pulmonary Department 175 [facility], [address] [place] [address] Physician Pulmonary Disease 09/06/17 06/22/20 documented as of this encounter
--- OUTSIDE RECORDS SUMMARY | 2025-03-24 15:19 | XMS_ITS | Encounter Summary ---
Author Organization [facility] and [facility] Address [address] [place] [address] Care Team Providers Care Environmental Conservation Professor Name Role Phone Caitlyn Bowie MD Primary Care Provider +1- [phone] Encounter Details Date Type Department Care Team (Late st Contact Info) Description 01/26/2019 Scanned Document [facility] Health Information Management [address] [place] [address] External, Provider Social History Tobacco Use Types [...] at [facility] 240 [facility] Building [address] [place] [address] Ronald Mills MD [address] [place] [address] [address] [place] [address] documented as of this encounter [...] as of this encounter Care Teams Environmental Conservation Professor Relationship Specialty Start Date End Date Caitlyn Bowie MD 3400 [facility] 1 [place] [address] PCP - General Internal Medicine 05/06/21 Henry Kelly MD Pulmonary Department 175 [facility], [address] [place] [address] Physician Pulmonary Disease 09/06/17 06/22/20 documented as of this encounter
--- OUTSIDE RECORDS SUMMARY | 2025-03-24 15:19 | XMS_ITS | Encounter Summary ---
Author Organization [facility] Address [address] [place] [address] Care Team Providers Care Ski Tow Operator Name Role Phone Caitlyn Bowie MD Primary Care Provider +1- [phone] Encounter Details Date Type Department Care Team (Late st Contact Info) Description 09/09/2024 Scanned Document INTERFACE DEFAULT [address] [place] [address] System, Provider Not In Social History Tobacco [...] [facility] 240 [facility] Building [address] [place], [place] [phone] Ronald Mills MD [address] [place] [address] [address] [place] [address] documented as of this encounter [...] as of this encounter Care Teams Ski Tow Operator Relationship Specialty Start Date End Date Caitlyn Bowie MD [address] [address] PCP - General Internal Medicine 05/06/21 documented as of this encounter
--- OUTSIDE RECORDS SUMMARY | 2025-03-24 15:19 | XMS_ITS | Encounter Summary ---
Author Organization [facility] and [facility] Address [address] [place] [address] Care Team Providers Care Boomboat Operator Name Role Phone Caitlyn Bowie MD Primary Care Provider +1- [phone] Encounter Details Date Type Department Care Team (Late st Contact Info) Description 12/29/2021 Telephone [facility] at [address] - [address] [address] Ronald Mills MD [address] [place] [address] Social History Tobacco Use Types Packs/Day [...] not sure where the blood's coming from. [phone] documented in this encounter Plan of Treatment Upcoming Encounters Date Type Department Care Team (Late st Contact Info) Description 04/25/2025 4:00 PM EDT Telemedicine [facility] 240 [facility] Building [address] [place] [address] Ronald Mills MD 240 [facility] A1 [place] [address] documented as of this encounter Visit Diagnoses Not on filedocumented in this encounter Additional Health Concerns Infection Onset Date Last Indicated Resolved Time COVID-19 03/05/2022 03/05/2022 03/15/2022 7:18 PM EDT Assessment Noted Time PHQ-9 Depression Total Score: 2 11/07/19 19 2:06 PM EDT documented as of this encounter Care Teams Boomboat Operator Relationship Specialty Start Date End Date Caitlyn Bowie MD [address] [address] PCP - General Internal Medicine 05/06/21 documented as of this encounter
--- OUTSIDE RECORDS SUMMARY | 2025-03-24 15:19 | XMS_ITS | Encounter Summary ---
Author Organization [facility] and [facility] Address [address] [place] [address] Care Team Providers Care Primary School Teacher Name Role Phone Caitlyn Bowie MD Primary Care Provider +1- [phone] Encounter Details Date Type Department Care Team (Late st Contact Info) Description 01/28/2019 Scanned Document [facility] Health Information Management [address] [place] [address] External, Provider Social History Tobacco Use Types [...] [facility] 240 [facility] Building [address] [place] [address] Ronald Mills MD [address] [place] [address] [address] [place] [address] documented as of this encounter Visit Diagnoses Not on filedocumented in this encounter Additional Health Concerns Infection Onset Date Last Indicated Resolved Time COVID-19 03/05/2022 03/05/2022 03/15/2022 7:18 PM EDT Assessment Noted Time PHQ-9 Depression Total Score: 2 11/07/19 19 2:06 PM EDT documented as of this encounter Care Teams Primary School Teacher Relationship Specialty Start Date End Date Caitlyn Bowie MD 3400 [facility] 1 [place] [address] PCP - General Internal Medicine 05/06/21 Henry Kelly MD Pulmonary Department 175 [facility], [address] [place] [address] Physician Pulmonary Disease 09/06/17 06/22/20 documented as of this encounter
--- OUTSIDE RECORDS SUMMARY | 2025-03-24 15:19 | XMS_ITS | Encounter Summary ---
Author Organization [facility] and [facility] Address [address] [place] [address] Care Team Providers Care Residential Real Estate Appraiser Name Role Phone Caitlyn Bowie MD Primary Care Provider +1- [phone] Encounter Details Date Type Department Care Team (Late st Contact Info) Description 01/09/2019 Scanned Document [facility] Health Information Management [address] [place] [address] External, Provider Social History Tobacco Use Types [...] Center at [facility] 240 [facility] [address] [place] [address] Ronald Mills MD [address] [place] [address] [address] [place] [address] documented as of this encounter [...] as of this encounter Care Teams Residential Real Estate Appraiser Relationship Specialty Start Date End Date Caitlyn Bowie MD 3400 [facility] 1 [place] [address] PCP - General Internal Medicine 05/06/21 Henry Kelly MD Pulmonary Department 175 [facility], [address] [place] [address] Physician Pulmonary Disease 09/06/17 06/22/20 documented as of this encounter
--- OUTSIDE RECORDS SUMMARY | 2025-03-24 15:19 | XMS_ITS | Encounter Summary ---
Author Organization [facility] and [facility] Address [address] [place] [address] Care Team Providers Care Body Welder Name Role Phone Caitlyn Bowie MD Primary Care Provider +1- [phone] Encounter Details Date Type Department Care Team (Late st Contact Info) Description 04/22/2019 Scanned Document [facility] Health Information Management [address] [place] [address] External, Provider Social History Tobacco Use Types [...] [facility] Building [address] [place] [address] Ronald Mills MD [address] [place] [address] [address] [place] [address] documented as of this encounter Visit Diagnoses Not on filedocumented in this encounter Additional Health Concerns Infection Onset Date Last Indicated Resolved Time COVID-19 03/05/2022 03/05/2022 03/15/2022 7:18 PM EDT Assessment Noted Time PHQ-9 Depression Total Score: 2 11/07/19 19 2:06 PM EDT documented as of this encounter Care Teams Body Welder Relationship Specialty Start Date End Date Caitlyn Bowie MD 3400 [facility] 1 [place] [address] PCP - General Internal Medicine 05/06/21 Henry Kelly MD Pulmonary Department 175 [facility], [address] [place] [address] Physician Pulmonary Disease 09/06/17 06/22/20 documented as of this encounter
--- OUTSIDE RECORDS SUMMARY | 2025-03-24 15:19 | XMS_ITS | Encounter Summary ---
Author Organization [facility] and [facility] Address [address] [place] [address] Care Team Providers Care Steel Pourer Helper Name Role Phone Caitlyn Bowie MD Primary Care Provider +1- [phone] Encounter Details Date Type Department Care Team (Late st Contact Info) Description 12/16/2015 Scanned Document [facility] Health Information Management [address] [place] [address] External, Provider Social History Tobacco Use Types [...] Center at [facility] 240 [facility] Building [address] [place], [place] [phone] Ronald Mills MD 240 [facility] [address] [place] [address] documented as of this encounter Procedures Procedure Name Priority Date/Time Associated Diagnosis Comments US RESULT SCAN Routine 12/16/2015 documented in this encounter Results * US Result Scan (12/16/2015) us Provider External IMG SCAN REPORTS Edited Result - Final [facility] [place], [place], [facility] documented in this encounter Visit Diagnoses Not on filedocumented in this encounter Additional Health Concerns Infection Onset Date Last Indicated Resolved Time COVID-19 03/05/2022 03/05/2022 03/15/2022 7:18 PM EDT documented as of this encounter Care Teams Steel Pourer Helper Relationship Specialty Start Date End Date Caitlyn Bowie MD 3400 [facility] 1 [place] [address] PCP - General Internal Medicine 05/06/21 Henry Kelly MD Pulmonary Department 175 [facility], [address] [place] [address] Physician Pulmonary Disease 09/06/17 06/22/20 documented as of this encounter
--- OUTSIDE RECORDS SUMMARY | 2025-03-24 15:19 | XMS_ITS | Encounter Summary ---
Author Organization [facility] and [facility] Address [address] [place] [address] Care Team Providers Care Bow Tacker Name Role Phone Caitlyn Bowie MD Primary Care Provider +1- [phone] Encounter Details Date Type Department Care Team (Late st Contact Info) Description 11/04/2015 Scanned Document [facility] Health Information Management [address] [place] [address] External, Provider Social History Tobacco Use Types [...] [facility] 240 [facility] Building [address] [place], [place] [phone] Ronald Mills MD 240 [facility] [address] [place] [address] documented as of this encounter Procedures Procedure Name Priority Date/Time Associated Diagnosis Comments NUC MED/PET RESULT SCAN Routine 11/04/2015 documented in this encounter Results * Nuc Med/PET Result Scan (11/04/2015) us Provider External IMG SCAN REPORTS Edited Result - Final [facility] [place], [place], [facility] documented in this encounter Visit Diagnoses Not on filedocumented in this encounter Additional Health Concerns Infection Onset Date Last Indicated Resolved Time COVID-19 03/05/2022 03/05/2022 03/15/2022 7:18 PM EDT documented as of this encounter Care Teams Bow Tacker Relationship Specialty Start Date End Date Caitlyn Bowie MD 3400 [facility] Max 1 [place] [address] PCP - General Internal Medicine 05/06/21 Henry Kelly MD Pulmonary Department 175 [facility], [address] [place] [address] Physician Pulmonary Disease 09/06/17 06/22/20 documented as of this encounter
--- OUTSIDE RECORDS SUMMARY | 2025-03-24 15:19 | XMS_ITS | Encounter Summary ---
Author Organization [facility] and [facility] Address [address] [place] [address] Care Team Providers Care Molded Candles Wicker Name Role Phone Caitlyn Bowie MD Primary Care Provider +1- [phone] Encounter Details Date Type Department Care Team (Late st Contact Info) Description 02/06/2019 Scanned Document [facility] Health Information Management [address] [place] [address] External, Provider Social History Tobacco Use Types [...] at [facility] 240 [facility] Building [address] [place] [address] Ronald Mills MD [address] [place] [address] [address] [place] [address] documented as of this encounter [...] documented as of this encounter Care Teams Molded Candles Wicker Relationship Specialty Start Date End Date Caitlyn Bowie MD 3400 [facility] 1 [place] [address] PCP - General Internal Medicine 05/06/21 Henry Kelly MD Pulmonary Department 175 [facility], [address] [place] [address] Physician Pulmonary Disease 09/06/17 06/22/20 documented as of this encounter
--- OUTSIDE RECORDS SUMMARY | 2025-03-24 15:19 | XMS_ITS | Clinical Summary ---
Author Organization [facility] Address [address] [place] [address] Phone Care Team Providers Care Production Tech Name Role Phone Caitlyn Bowie MD [...] (12/25/2021 4:22 PM EDT): Followed closely by belt loop cutter-Dr. Ronald Mills at [facility] hematology- advised to continue Coumadin anticoagulation at [...] (09/09/2021 10:42 PM EST): Followed closely by belt loop cutter-Dr. Ronald Mills at [facility] hematology- last seen on 08/05/2021 and advised [...] anticoagulation clinic to keep INR [facility] 1.5[facility]2.0. [facility] current use of systemic steroids 09/09 Assessment & Plan (12/10/2021 10:38 AM EDT): Carefully continue alternating low dosing as prescribed by her sales designer and consider gentle taper when ready. Daily [...] alternating low dosing as prescribed by her sales designer and consider gentle taper when ready. Daily [...] AM EDT Office Visit [facility] [address] [place] [address] Anna Ellis MD Acquired hypothyroidism (Primary Dx); Hyperparathyroidism; Age-related osteoporosis without current pathological fracture; Adrenal insufficiency 01/12/2025 Refill [facility] [address] [place] [address] Anna Ellis MD Medication Refill from Last [...] 11:40 AM EST Office Visit [facility] [address] [place] [address] [place], [place] [phone] Anna Ellis MD [address] [place] [address] [email or web address] Health Maintenance Due Date Last Done Comments [...] MD LAB BLOOD ORDERABLES F inal Result [facility] 30 [place] [address] from Last 3 Months or Most Recently Relevant to Health Maintenance Insurance MEDICARE PART A & B [facility] MEDEX SUPPLEMENT [facility] [employer] health Address: [address] [place] [id number] HEALTH SAFETY NET FULL [facility] MEDICARE PART A & B [facility] MEDEX SUPPLEMENT [employer] SAFETY NET FULL MEDICARE PART A & B [facility] MEDEX SUPPLEMENT [facility] SAFETY NET FULL [facility] MEDICARE PART A & B Member Subscriber Plan / Payer (Ef fective 1999-Present) Name:Jovana Malik Member ID:[id number] Relation to Subscriber:Self Name:Jovana Malik Subscriber ID:[id number] Payer ID:[id number] Group ID:Not on file Type:Medicare Address: [employer] [facility] [employer] [facility] [address] [facility] [place] [phone] [facility] MEDEX SUPPLEMENT HEALTH SAFETY NET FULL [facility] MEDICARE PART A & B [facility] MEDEX SUPPLEMENT [facility] FULL [facility] MEDICARE PART A & B [facility] MEDEX SUPPLEMENT [facility] FULL [facility] MEDICARE PART A & B [facility] MEDEX SUPPLEMENT [facility] NET FULL [facility] MEDICARE PART A & B [facility] MEDEX SUPPLEMENT [facility] NET FULL [facility] MEDICARE PART A & B [facility] MEDEX SUPPLEMENT HEALTH SAFETY NET FULL [facility] Care Teams Production Tech Relationship Specialty Start Date End Date Caitlyn Bowie MD 3400 [place] [address] PCP - General Internal Medicine 09/09/21 Additional Source Comments The information contained in this document represents components of the legal health record. It is not the complete legal health record.[facility]
--- OUTSIDE RECORDS SUMMARY | 2025-03-24 15:20 | XMS_ITS | Encounter Summary ---
Author Organization [facility] and [facility] Address [address] [place] [address] Care Team Providers Care Research Instructor Name Role Phone Caitlyn Bowie MD Primary Care Provider +1- [phone] Encounter Details Date Type Department Care Team (Late st Contact Info) Description 12/16/2016 Scanned Document [facility] Health Information Management [address] [place] [address] External, Provider Social History Tobacco Use Types [...] [facility] at [facility] 240 [facility] Building [address] [place], [place] [phone] Ronald Mills MD 240 [facility] Max [address] [place] [address] documented as of this encounter [...] as of this encounter Care Teams Research Instructor Relationship Specialty Start Date End Date Caitlyn Bowie MD 3400 [facility] 1 [place] [address] PCP - General Internal Medicine 05/06/21 Henry Kelly MD Pulmonary Department 175 [facility], [address] [place] [address] Physician Pulmonary Disease 09/06/17 06/22/20 documented as of this encounter
--- OUTSIDE RECORDS SUMMARY | 2025-03-24 15:20 | XMS_ITS | Encounter Summary ---
Author Organization [facility] and [facility] Address [address] [place] [address] Care Team Providers Care Chief Design Branch Name Role Phone Caitlyn Bowie MD Primary Care Provider +1- [phone] Encounter Details Date Type Department Care Team (Late st Contact Info) Description 06/17/2016 Scanned Document [facility] Health Information Management [address] [place] [address] External, Provider Social History Tobacco Use Types [...] [facility] Building [address] [place], [place] [phone] Ronald Mills MD 240 [facility] Max [address] [place] [address] documented as of this encounter Procedures Procedure Name Priority Date/Time Associated Diagnosis Comments XRAY RESULT SCAN Routine 06/17/2016 documented in this encounter Results * Xray Result Scan (06/17/2016) us Provider External IMG SCAN REPORTS Final Result [facility] [place], [place], [facility] documented in this encounter Visit Diagnoses Not on filedocumented in this encounter Additional Health Concerns Infection Onset Date Last Indicated Resolved Time COVID-19 03/05/2022 03/05/2022 03/15/2022 7:18 PM EDT documented as of this encounter Care Teams Chief Design Branch Relationship Specialty Start Date End Date Caitlyn Bowie MD 3400 [facility] 1 [place] [address] PCP - General Internal Medicine 05/06/21 Henry Kelly MD Pulmonary Department [address] [place] [address], [address] [place] [address] Physician Pulmonary Disease 09/06/17 06/22/20 documented as of this encounter
--- OUTSIDE RECORDS SUMMARY | 2025-03-24 15:20 | XMS_ITS | Encounter Summary ---
Author Organization [facility] and [facility] Address [address] [place] [phone] Care Team Providers Care Fur Comber Name Role Phone Caitlyn Bowie MD Primary Care Provider +1- [phone] Encounter Details Date Type Department Care Team (Late st Contact Info) Description 12/14/2016 Scanned Document [facility] Health Information Management [address] [place] [address] External, Provider Social History Tobacco Use Types [...] at [facility] 240 [facility] Building [address] [place], [place] [phone] Ronald Mills MD 240 [facility] Max [address] [place] [address] documented as of this encounter [...] as of this encounter Care Teams Fur Comber Relationship Specialty Start Date End Date Caitlyn Bowie MD 3400 [facility] 1 [place] [address] PCP - General Internal Medicine 05/06/21 Henry Kelyl MD Pulmonary Department 175 [facility], [address] [place] [address] Physician Pulmonary Disease 09/06/17 06/22/20 documented as of this encounter
--- OUTSIDE RECORDS SUMMARY | 2025-03-24 15:20 | XMS_ITS | Encounter Summary ---
Author Organization [facility] Address [address] [place] [address] Care Team Providers Care Extension Worker Name Role Phone Caitlyn Bowie MD Primary Care Provider +1- [phone] Reason for Referral * Imaging (Routine) - Closed Specialty Diagnoses / Procedures Referred By Contac t Referred To Contact Procedures NM Lung Ventilation Perfusion ([facility]) External, Provider Referral ID Status Reason Start Date Expiration Date Visits Re quested Visits Authorized [id number] Closed 08/22/2016 08/22/2017 4 4 Encounter Details Date Type Department Care Team (Late st Contact Info) Description 08/22/2016 Scanned Document Thoracic Oncology Program at [address] [address] External, Provider Social History Tobacco Use Types [...] PM EDT Telemedicine Cancer Center at [address] [place] [address] Ronald Mills MD [address] [place] [address] [address] [place] [id number] documented as of this encounter Procedures Procedure Name Priority Date/Time Associated Diagnosis Comments XRAY RESULT SCAN Routine 07/27/2016 CT RESULT SCAN Routine 07/27/2016 CT RESULT SCAN Routine 07/27/2016 CARDIAC EKG RESULT SCAN Routine 07/27/2016 LAB SCAN Routine 07/27/2016 NM LUNG VENTILATION PERFUSIO N ([facility]) Routine 07/27/2016 documented in this encounter Results * Xray Result Scan (07/27/2016) us Provider External IMG SCAN REPORTS Final Result Performing Organization Address [facility] Co de Phone Number [facility] * CT Result Scan (07/27/2016) us Provider External IMG SCAN REPORTS Final Result Performing Organization Address [facility] Co de Phone Number [facility] * Cardiac EKG Result Scan (07/27/2016) us Provider External CV CARDIAC REPORT (CVR) Final Result Performing Organization Address [facility] Co de Phone Number [facility] * CT Result Scan (07/27/2016) us Provider External IMG SCAN REPORTS Final Result Performing Organization Address [facility] Co de Phone Number [facility] * Lab Scan (07/27/2016) Blood specimen (specimen) us Provider External LAB BLOOD ORDERABLES Final Res ult Performing Organization Address [facility] Co de Phone Number [facility] * NM Lung Ventilation Perfusion ([facility]) (07/27/2016) Anatomical Region Laterality Modality Chest, Lung Nuclear Medicine us Provider External IMG NM ORDERABLES Final Result documented in this encounter Visit Diagnoses Not on filedocumented in this encounter Additional Health Concerns Infection Onset Date Last Indicated Resolved Time COVID-19 03/05/2022 03/05/2022 03/15/2022 7:18 PM EDT documented as of this encounter Care Teams Extension Worker Relationship Specialty Start Date End Date Caitlyn Bowie MD [address] [facility] 1 [place] [address] PCP - General Internal Medicine 05/06/21 Henry Kelly MD Pulmonary Department [address] [facility], [address] [place] [address] Physician Pulmonary Disease 09/06/17 06/22/20 documented as of this encounter
--- OUTSIDE RECORDS SUMMARY | 2025-03-24 15:20 | XMS_ITS | Encounter Summary ---
Author Organization [facility] Address [address] [place] [address] Care Team Providers Care Superintendent Recreation Name Role Phone Caitlyn Bowie MD Primary Care Provider +1- [phone] Encounter Details Date Type Department Care Team (Late st Contact Info) Description 12/14/2016 Scanned Document [facility] Health Information Management [address] [place] [address] External, Provider Social History Tobacco Use Types [...] [facility] [address] [facility] [address] [place], [place] [phone] Ronald Mills MD [address] [facility] [address] [place] [address] documented as of this encounter Visit Diagnoses Not on filedocumented in this encounter Additional Health Concerns Infection Onset Date Last Indicated Resolved Time COVID-19 03/05/2022 03/05/2022 03/15/2022 7:18 PM EDT documented as of this encounter Care Teams Superintendent Recreation Relationship Specialty Start Date End Date Caitlyn Bowie MD [address] [facility] 1 [place] [address] PCP - General Internal Medicine 05/06/21 Henry Kelly MD Pulmonary Department [address] [facility], [address] [place] [address] Physician Pulmonary Disease 09/06/17 06/22/20 documented as of this encounter
--- OUTSIDE RECORDS SUMMARY | 2025-03-24 15:20 | XMS_ITS | Encounter Summary ---
Author Organization [facility] Address [address] [place] [address] Care Team Providers Care Driver Guard Name Role Phone Caitlyn Bowie MD Primary Care Provider +1- [phone] Encounter Details Date Type Department Care Team (Late st Contact Info) Description 04/04/2016 Scanned Document [facility] Health Information Management [address] [place] [phone] External, Provider Social History Tobacco Use [...] [facility] [address] [facility] [address] [place], [place] [phone] Ronald Mills MD [address] [facility] [address] [place] [address] documented as of this encounter Procedures Procedure Name Priority Date/Time Associated Diagnosis Comments LAB SCAN Routine 04/04/2016 documented in this encounter Results * Lab Scan (04/04/2016) Blood specimen (specimen) us Provider External LAB BLOOD ORDERABLES Final Res ult [facility] documented in this encounter Visit Diagnoses Not on filedocumented in this encounter Additional Health Concerns Infection Onset Date Last Indicated Resolved Time COVID-19 03/05/2022 03/05/2022 03/15/2022 7:18 PM EDT documented as of this encounter Care Teams Driver Guard Relationship Specialty Start Date End Date Caitlyn Bowie MD [address] [facility] 1 [place] [address] PCP - General Internal Medicine 05/06/21 Henry Kelly MD Pulmonary Department [address] [facility], [address] [place] [address] Physician Pulmonary Disease 09/06/17 06/22/20 documented as of this encounter
--- OUTSIDE RECORDS SUMMARY | 2025-03-24 15:20 | XMS_ITS | Encounter Summary ---
Author Organization [facility] and [facility] Address [address] [place] [address] Care Team Providers Care Heavy Coil [place] Name Role Phone Caitlyn Bowie MD Primary Care Provider +1- [phone] Encounter Details Date Type Department Care Team (Late st Contact Info) Description 12/16/2016 Scanned Document [facility] Health Information Management [address] [place] [address] External, Provider Social History Tobacco Use Types [...] [facility] [address] [facility] [address] [place], [place] [phone] Ronald Mills MD [address] [facility] [address] [place] [address] documented as of this encounter [...] as of this encounter Care Teams Heavy Coil [place] Relationship Specialty Start Date End Date Caitlyn Bowie MD [address] [facility] 1 [place] [address] PCP - General Internal Medicine 05/06/21 Henry Kelly MD Pulmonary Department [address] [facility], [address] [place] [address] Physician Pulmonary Disease 09/06/17 06/22/20 documented as of this encounter
--- OUTSIDE RECORDS SUMMARY | 2025-03-24 15:20 | XMS_ITS | Encounter Summary ---
Author Organization [facility] and [facility] Address [address] [place] [address] Care Team Providers Care Nylon Operator Name Role Phone Caitlyn Bowie MD Primary Care Provider +1- [phone] Encounter Details Date Type Department Care Team (Late st Contact Info) Description 06/17/2016 Scanned Document [facility] Health Information Management [address] [place] [address] External, Provider Social History Tobacco Use Types [...] [facility] [address] [facility] [address] [place], [place] [phone] Ronald Mills MD [address] [facility] [address] [place] [address] documented as of this encounter Visit Diagnoses Not on filedocumented in this encounter Additional Health Concerns Infection Onset Date Last Indicated Resolved Time COVID-19 03/05/2022 03/05/2022 03/15/2022 7:18 PM EDT documented as of this encounter Care Teams Nylon Operator Relationship Specialty Start Date End Date Caitlyn Bowie MD [address] [facility] 1 [place] [address] PCP - General Internal Medicine 05/06/21 Henry Kelly MD Pulmonary Department 175 [facility], [address] [place] [address] Physician Pulmonary Disease 09/06/17 06/22/20 documented as of this encounter
--- OUTSIDE RECORDS SUMMARY | 2025-03-24 15:20 | XMS_ITS | Encounter Summary ---
Author Organization [facility] and [facility] Address [address] [place] [address] Care Team Providers Care Mechanical Designer Name Role Phone Caitlyn Bowie MD Primary Care Provider +1- [phone] Encounter Details Date Type Department Care Team (Late st Contact Info) Description 07/08/2016 Scanned Document [facility] Health Information Management [address] [place] [address] External, Provider Social History Tobacco Use Types [...] [facility] [address] [facility] [address] [place], [place] [phone] Ronald Mills MD 240 [facility] [address] [place] [address] documented as of this encounter Procedures Procedure Name Priority Date/Time Associated Diagnosis Comments LAB SCAN Routine 07/08/2016 documented in this encounter Results * Lab Scan (07/08/2016) Blood specimen (specimen) us Provider External LAB BLOOD ORDERABLES Final Res ult [facility] documented in this encounter Visit Diagnoses Not on filedocumented in this encounter Additional Health Concerns Infection Onset Date Last Indicated Resolved Time COVID-19 03/05/2022 03/05/2022 03/15/2022 7:18 PM EDT documented as of this encounter Care Teams Mechanical Designer Relationship Specialty Start Date End Date Caitlyn Bowie MD [address] [facility] 1 [place] [address] PCP - General Internal Medicine 05/06/21 Henry Kelly MD Pulmonary Department [address] [facility], [address] [place] [address] Physician Pulmonary Disease 09/06/17 06/22/20 documented as of this encounter
--- OUTSIDE RECORDS SUMMARY | 2025-03-24 15:20 | XMS_ITS | Encounter Summary ---
Author Organization [facility] Address [address] [place] [address] Care Team Providers Care Neuroradiologist Name Role Phone Caitlyn Bowie MD Primary Care Provider +1- [phone] Encounter Details Date Type Department Care Team (Late st Contact Info) Description 07/27/2016 Scanned Document Thoracic Oncology Program at [address] [address] Suzy Kong MD [address] [place] [phone] Social History Tobacco Use Types Packs/Day [...] PM EDT Telemedicine Cancer Center at [address] [place], [place] [phone] Ronald Mills MD [address] [facility] [address] [place] [address] documented as of this encounter Visit Diagnoses Not on filedocumented in this encounter Additional Health Concerns Infection Onset Date Last Indicated Resolved Time COVID-19 03/05/2022 03/05/2022 03/15/2022 7:18 PM EDT documented as of this encounter Care Teams Neuroradiologist Relationship Specialty Start Date End Date Caitlyn Bowie MD [address] [facility] [address] 1 [place] [address] PCP - General Internal Medicine 05/06/21 Henry Kelly MD Pulmonary Department [address] [facility], [address] [place] [address] Physician Pulmonary Disease 09/06/17 06/22/20 documented as of this encounter
--- OUTSIDE RECORDS SUMMARY | 2025-03-24 15:20 | XMS_ITS | Encounter Summary ---
Author Organization [facility] Address [address] [place] [address] Care Team Providers Care Test Analyst Name Role Phone Caitlyn Bowie MD Primary Care Provider +1- [phone] Encounter Details Date Type Department Care Team (Late st Contact Info) Description 07/27/2016 Scanned Document Thoracic Oncology Program at [address] [address] Suzy Kong MD [address] [place] [phone] Social History Tobacco Use Types Packs/Day [...] 4:00 PM EDT Telemedicine Cancer Center at [address] [place], [place] [phone] Ronald Mills MD 240 [facility] [address] [place] [address] documented as of this encounter Visit Diagnoses Not on filedocumented in this encounter Additional Health Concerns Infection Onset Date Last Indicated Resolved Time COVID-19 03/05/2022 03/05/2022 03/15/2022 7:18 PM EDT documented as of this encounter Care Teams Test Analyst Relationship Specialty Start Date End Date Caitlyn Bowie MD 34[address] [facility] Max 1 [place] [address] PCP - General Internal Medicine 05/06/21 Henry Kelly MD Pulmonary Department [address] [facility], [address] [place] [address] Physician Pulmonary Disease 09/06/17 06/22/20 documented as of this encounter
--- OUTSIDE RECORDS SUMMARY | 2025-03-24 15:20 | XMS_ITS | Encounter Summary ---
Author Organization [facility] Address [address] [place] [address] Care Team Providers Care Supervisor [employer]uminum Boat Assembly Name Role Phone Caitlyn Bowie MD Primary Care Provider +1- [phone] Encounter Details Date Type Department Care Team (Late st Contact Info) Description 07/27/2016 Scanned Document Thoracic Oncology Program at [address] [address] Suzy Kong MD [address] [place] [phone] Social History Tobacco Use Types Packs/Day [...] PM EDT Telemedicine Cancer Center at [address] [place], [place] [phone] Ronald Mills MD 240 [facility] [address] [place] [address] documented as of this encounter Visit Diagnoses Not on filedocumented in this encounter Additional Health Concerns Infection Onset Date Last Indicated Resolved Time COVID-19 03/05/2022 03/05/2022 03/15/2022 7:18 PM EDT documented as of this encounter Care Teams Supervisor Aluminum Boat Assembly Relationship Specialty Start Date End Date Caitlyn Bowie MD [address] [facility] [address] 1 [place] [address] PCP - General Internal Medicine 05/06/21 Henry Kelly MD Pulmonary Department 175 [facility], [address] [place] [address] Physician Pulmonary Disease 09/06/17 06/22/20 documented as of this encounter
--- OUTSIDE RECORDS SUMMARY | 2025-03-24 15:20 | XMS_ITS | Encounter Summary ---
Author Organization [facility] and [facility] Address [address] [place] [address] Care Team Providers Care Bow Making Machine Operator Name Role Phone Caitlyn Bowie MD Primary Care Provider +1- [phone] Encounter Details Date Type Department Care Team (Late st Contact Info) Description 10/23/2024 Scanned Document INTERFACE DEFAULT [address] [place] [address] System, Provider Not In Social History Tobacco [...] [facility] Building [address] [place], [place] [phone] Ronald Mills MD [address] [place] [address] [address] [place] [address] documented as of this [...] as of this encounter Care Teams Bow Making Machine Operator Relationship Specialty Start Date End Date Caitlyn Bowie MD [address] [address] PCP - General Internal Medicine 05/06/21 documented as of this encounter
--- OUTSIDE RECORDS SUMMARY | 2025-03-24 15:20 | XMS_ITS | Encounter Summary ---
Author Organization [facility] and [facility] Address [address] [place] [address] Care Team Providers Care Violin Repairer Name Role Phone Caitlyn Bowie MD Primary Care Provider +1- [phone] Encounter Details Date Type Department Care Team (Late st Contact Info) Description 10/10/2016 Scanned Document [facility] Health Information Management [address] [place] [address] External, Provider Social History Tobacco Use Types [...] [facility] Building [address] [place], [place] [phone] Ronald Mills MD [address] [facility] [address] [place] [address] documented as of this encounter Visit Diagnoses Not on filedocumented in this encounter Additional Health Concerns Infection Onset Date Last Indicated Resolved Time COVID-19 03/05/2022 03/05/2022 03/15/2022 7:18 PM EDT documented as of this encounter Care Teams Violin Repairer Relationship Specialty Start Date End Date Caitlyn Bowie MD 3400 [facility] 1 [place] [address] PCP - General Internal Medicine 05/06/21 Henry Kelly MD Pulmonary Department 175 [facility], [address] [place] [address] Physician Pulmonary Disease 09/06/17 06/22/20 documented as of this encounter
== END 2025-03-24 12:23 | disposition home or self-care (01) ==
LOC: HO.HGI 11:16
PROVIDERS: PCP Internal Medicine; Visit Provider Internal Medicine Gastroenterology
DX: K57.30 Diverticulosis of large intestine without perforation or abscess without bleeding (principal)
CPT/HCPCS: 99204

== ENCOUNTER → 2025-03-24 11:16 | Outpatient (BNVA) | payer MEDICARE, SELFPAY | PROVIDERS: PCP Internal Medicine; Visit Provider Internal Medicine Gastroenterology | DX: K57.30 Diverticulosis of large intestine without perforation or abscess without bleeding (principal) | CPT/HCPCS: 99202 ==

== ENCOUNTER 2025-03-26 13:21 | Outpatient (AMB) | payer MEDICARE, SELFPAY ==
--- NOTE | 2025-03-26 13:34 | MHC.OFFVIS ---
Vital Signs 03/26/25 13:35 Height 5 ft 2 in Weight 126 lb 1.671 oz BMI 23.1 BP 110/52 L Blood Pressure Location Lt brachial Position Sitting Pulse 65 Pulse Source Pulse Oximeter Intake Visit Reasons: 4m follow up Intake Note: 4 month follow up Template Maker Required: No Accompanied by: Self / Same As Patient Allergies morphine Allergy (Severe, Verified 03/26/25 13:45) Itching avocado (AVOCADO) Allergy (Mild, Verified 03/26/25 13:45) ITCHY THROAT, RASH azithromycin (AZITHROMYCIN) Allergy (Mild, Verified 03/26/25 13:45) ITCHY THROAT, RASH barium iodide (BARIUM IODIDE) Allergy (Mild, Verified 03/26/25 13:45) ITCHY THROAT, RASH barium sulfate Allergy (Mild, Verified 03/26/25 13:45) Itch bee pollen (BEE STINGS) Allergy (Mild, Verified 03/26/25 13:45) ITCHY THROAT, RASH ciprofloxacin (From CIPRO) Allergy (Mild, Verified 03/26/25 13:45) ITCHY THROAT, RASH clarithromycin (From BIAXIN) Allergy (Mild, Verified 03/26/25 13:45) ITCHY THROAT, RASH diatrizoate meglumine (From GASTROGRAFIN) Allergy (Mild, Verified 03/26/25 13:45) ITCHY THROAT, RASH diatrizoate sodium (From GASTROGRAFIN) Allergy (Mild, Verified 03/26/25 13:45) ITCHY THROAT, RASH diclofenac (From VOLTAREN) Allergy (Mild, Verified 03/26/25 13:45) ITCHY THROAT, RASH erythromycin base (ERYTHROMYCIN BASE) Allergy (Mild, Verified 03/26/25 13:45) ITCHY THROAT, RASH gentamicin (GENTAMICIN) Allergy (Mild, Verified 03/26/25 13:45) ITCHY THROAT, RASH Iodinated Contrast Media (IVP DYE) Allergy (Mild, Verified 03/26/25 13:45) ITCHY THROAT, RASH levofloxacin (From LEVAQUIN) Allergy (Mild, Verified 03/26/25 13:45) ITCHY THROAT, RASH metronidazole (From FLAGYL) Allergy (Mild, Verified 03/26/25 13:45) ITCHY THROAT, RASH moxifloxacin (From AVELOX) Allergy (Mild, Verified 03/26/25 13:45) ITCHY THROAT, RASH Penicillins (PENICILLINS) Allergy (Mild, Verified 03/26/25 13:45) ITCHY THROAT, RASH shrimp (SHRIMP) Allergy (Mild, Verified 03/26/25 13:45) ITCHY THROAT, RASH Sulfa (Sulfonamide Antibiotics) (SULFA (SULFONAMIDE ANTIBIOTICS)) Allergy (Mild, Verified 03/26/25 13:45) ITCHY THROAT, RASH vancomycin (VANCOMYCIN) Allergy (Mild, Verified 03/26/25 13:45) ITCHY THROAT, RASH clindamycin Adverse Reaction (Intermediate, Verified 03/26/25 13:45) Unknown Medication List - Last Reconciled 03/26/25 by Frederick Banuelos NP Advair HFA 230-21 mcg/actuation (fluticasone propion-salmeterol) 2 puffs inhalation BID 90 days NS albuterol sulfate 90 mcg/actuation 2 inhalations inhalation Q6H PRN 90 days brimonidine 0.2% 1 drp ophthalmic (eye) BID CPAP (CPAP Machine/Device) As directed diazepam 2.5 mg PO BID PRN docusate sodium 100 mg PO BID epinephrine 0.3 mg IM USEASDIRECTD PRN ferrous gluconate 324 mg PO QAM fluticasone propionate 50 mcg/actuation 2 sprays intranasal DAILY 90 days folic acid 1 mg PO DAILY furosemide 80 mg (2 x 40 mg) PO BID levocetirizine 5 mg PO DAILY 90 days levothyroxine (Synthroid) 25 mcg PO MOTUWETHFR@0600 levothyroxine (Synthroid) 50 mcg PO SUSA@0600 meclizine 25 mg PO Q8H PRN 10 days metoprolol succinate ER (Toprol XL) 50 mg PO BID montelukast 10 mg PO DAILY mupirocin 2% (Centany) 1 appl topical BID nebulizers As directed Oxygen Home Use As directed potassium chloride 40 mEq PO DAILY prednisone 10 mg PO DIRECTED rosuvastatin 10 mg PO MOWEFR@2100 simethicone (Gas Relief (simethicone)) 80 mg PO QIDWMHS trazodone 100 mg (2 x 50 mg) PO BEDTIME warfarin (Jantoven) mg PO DAILY HPI Comments Details: This is an 79-year-old female patient coming in for a follow-up visit. Patient with a significant history of lung cancer, pulmonary hypertension, COPD on continuous 2 L O2 supplement, coronary artery disease, diastolic heart failure, antiphospholipid syndrome with a prior DVT and PEs on chronic anticoagulation, sleep apnea, and mitral regurgitation status post mitral clip. Patient was in the hospital in January for ongoing chest discomfort and Dr. Cadet saw her inpatient and recommended myocardial perfusion study which patient declined. Today, patient is stating that she was recently seen again in the ER for chest discomfort where all of her workup was negative. Patient continues to report ongoing chest discomfort however still declining cardiac workup. Patient is otherwise reporting compliance with all medications. Patient is also reporting some left lower leg swelling which is new for patient. Her venous duplex was negative for DVT in the ER. [facility] Medical History Chest pain Chest pain Ankle pain Chronic hypercapnic respiratory failure KANDY treated with BiPAP COPD (chronic obstructive pulmonary disease) Open wound Warfarin anticoagulation Complex sleep apnea syndrome Leg pain Anemia Tachycardia DVT (deep venous thrombosis) Compression fracture of body of thoracic vertebra ASD (atrial septal defect) Pleuritic chest pain History of COVID-19 Chronic anticoagulation Hypothyroidism GERD (gastroesophageal reflux disease) Hyperlipidemia Hypertension Factor 5 Leiden mutation, heterozygous History of non-ST elevation myocardial infarction (NSTEMI) Hypoxia Anxiety PTSD (post-traumatic stress disorder) Hemoptysis Dyspnea Tracheobronchitis CLARA positive Diverticulitis Allergic bronchitis (HFpEF) heart failure with preserved ejection fraction Subarachnoid bleed Insomnia Anti-phospholipid antibody syndrome Hypogammaglobulinemia Chronic respiratory failure Arterial insufficiency of lower extremity Complex regional pain syndrome i of right lower limb Post herpetic neuralgia Pulmonary hypertension Pericardial effusion Pulmonary emboli Pleural effusion Radiation fibrosis of lung Pneumonitis Pulmonary nodules Lung cancer Surgical History History of colonoscopy History of lung surgery History of tonsillectomy History of hysterectomy S/P mitral valve clip implantation History of cardiac cath Family History Sister No problems noted. Mother Cardiovascular disease Daughter Tachycardia Other KANDY (obstructive sleep apnea) Social History Household Members: Other Housing: Care Home Do you presently have visiting nurse or other home services: Yes (at home had CATEGORY CONSULTANT that came to visit her) Unable to assess alcohol history related to: Unknown Alcohol intake: never Comment: stand by assist with ambulation Patient Tobacco Use Status: Never used Tobacco Second Hand Smoke Exposure: No Advance Directives Date on File: 06/15/22 service: No Current occupational status: retired Review of Systems Const Denies daytime sleepiness, Denies difficulty sleeping, Denies snoring, Denies stops breathing during sleep and Denies weakness Card Denies chest pain, Denies rapid heart rate, Denies irregular heart rhythm, Denies claudication, Denies leg edema, Reports lightheadedness, Denies palpitations, Denies dyspnea, Reports dyspnea on exertion, Denies orthopnea, Denies paroxysmal nocturnal dyspnea and Denies slow heart rate Resp Denies cough, Denies dyspnea, Reports dyspnea on exertion and Denies snoring GI Reports no additional complaints, Denies hematochezia, Denies change in stool character and Denies dyspepsia Musc Denies abnormal gait, Denies muscle weakness and Denies numbness Neuro Denies abnormal gait, Denies numbness and Denies weakness Endo Denies palpitations Physical Exam Vital Signs: Last Vital Signs Pulse 65 03/26/25 13:35 BP 110/52 L 03/26/25 13:35 BMI result Body Mass Index 23.1 Const General: cooperative, healthy appearing, comfortable and no acute distress Orientation/consciousness: patient oriented x3 HEENT Head: Yes normal to inspection Neck Neck: Yes normal visual inspection, Yes trachea midline and Yes supple Chest Chest palpation & inspection: normal inspection of the chest Resp Other: On continuous O2 supplement. Effort & Inspection: normal respiratory effort Auscultation: clear to auscultation bilaterally, no crackles, no rales, no rhonchi and no wheezes Cardio Jugular venous distension: no JVD Palpation: normal PMI Rate: regular rate Rhythm: regular rhythm Heart sounds: S1 normal heart sound present, S2 normal heart sound present, no click, no gallops, no murmurs and no rubs Peripheral pulses: Peripheral pulses 2+ throughout GI Inspection: Yes normal to inspection Palpation (GI): Soft to palpation Auscultation: normal bowel sounds Skin General skin exam: no rashes or lesions noted Neuro General: patient oriented x3 Extrem General: Yes normal to inspection, No calf tenderness and Yes edema (1+ pitting edema to left lower extremity) Psych Appearance: grossly normal Mental Status: mental status grossly normal Speech and movement: Normal speech and movement present Assessment & Plan Assessment & Plan (1) Angina pectoris: Code(s): I20.9 - Angina pectoris, unspecified Category: Medical Plan: Patient has had cardiac catheterization twice in the past showing moderate LAD disease, last being back in October of 2022. Patient was recently in the hospital where ACS was ruled out. Given her atypical symptoms of pins and needles like chest discomfort, patient was discharged home. However, patient continues to report of ongoing symptoms. We recommended further evaluation with a ischemic workup but patient is refusing this. Recommended trying antianginal like isosorbide in addition to the metoprolol therapy, per patient states that she has tried nitrates family in the past and did not tolerate it. Patient's blood pressures are also on the softer end and therefore at this time, we will hold off on starting her on isosorbide. Plan is to review with primary canvas worker apprentice if this is necessary. Patient verbalizes understanding of the plan. (2) (HFpEF) heart failure with preserved ejection fraction: Code(s): I50.30 - Unspecified diastolic (congestive) heart failure Category: Medical Qualifiers: Heart failure chronicity: chronic Qualified Code(s): I50.32 - Chronic diastolic (congestive) heart failure Plan: 10/30/2024-echo study showed a normal LV systolic function with the ejection fraction between 55-60% with grade 2 diastolic dysfunction, status post mitral clip with a mean gradient of 7 mm Hg , a small pericardial effusion, and mild pulmonary hypertension. Patient previously had hypokalemia and therefore was temporarily on an increased dose of potassium supplement of 40mEq. Patient is currently back on 20 mEq and we will recheck her electrolytes and kidney function. (3) Pulmonary hypertension: Comment: severe based on RHC, moderate based on recent echo Code(s): I27.20 - Pulmonary hypertension, unspecified Category: Medical Plan: Continue continuous O2 supplementation. Followed by pulmonology at [facility]. (4) CAD (coronary artery disease): Code(s): I25.10 - Atherosclerotic heart disease of [place] coronary artery without angina pectoris Category: Medical Plan: As above (5) S/P mitral valve clip implantation: Comment: (mitral valve repair - mitral valve clip - Dr. Camarillo, [facility] [place]10[place] Code(s): Z98.890 - Other specified postprocedural states; Z95.818 - Presence of other cardiac implants and grafts Category: Surgical Plan: History of mitral regurgitation. Mitral clip done by Dr. Camarillo on 08/10/22. As above. (6) Left leg swelling: Code(s): M79.89 - Other specified soft tissue disorders Plan: On exam, patient has +1 edema to her left lower leg. No erythema, discomfort, warmth, or signs of infection. We will get a ultrasound of her left lower leg to assess for PAD. (7) Hospital discharge follow-up: Code(s): Z09 - Encounter for follow-up examination after completed treatment for conditions other than malignant neoplasm Plan: As above. Advised heart healthy diet, regular exercise as tolerated, med compliance, and management of vascular risk factors. Follow-up with Dr. aCdet. In the interim, patient will call the office with any concerns or change in symptoms. Advised to seek ER care in case of exertional chest pain not resolved with rest. This note was generated using voice recognition software. While every effort has been made to ensure accuracy and proper valuer, there may be occasional errors that could affect the content or meaning of the described symptoms. Orders: Orders Basic Metabolic Panel 03/26/25 I50.32 - Chronic diastolic (congestive) heart failure US arterial duplex LE LT 03/26/25 M79.89 - Other specified soft tissue disorders Medications: Changed From potassium chloride 40 mEq PO DAILY To potassium chloride 20 mEq PO DAILY Coding Level of Care Code Est Pt Level 4 (24748) Complex EM visit Add On G2211 Diagnoses Angina pectoris I20.9 Chronic heart failure with preserved ejection fraction I50.32 Heart failure chronicity: chronic Pulmonary hypertension I27.20 CAD (coronary artery disease) I25.10 S/P mitral valve clip implantation Z98.890; Z95.818 Left leg swelling M79.89 Hospital discharge follow-up Z09 Time Spent (min) 35 Comment Time spent in reviewing the chart, test results, assessment, counseling and documentation.
[2025-03-26 13:35] VITALS: BP 110/52; PULSE 65; BMI 23.1
--- OUTSIDE RECORDS SUMMARY | 2025-03-26 17:06 | XMS_ITS | Encounter Summary ---
Author Organization [facility] Address [address] [place] [address] Care Team Providers Care Incoming Freight Clerk Name Role Phone Caitlyn Bowie MD Primary Care Provider +1- [phone] Encounter Details Date Type Department Care Team (Late st Contact Info) Description 02/20/2017 Scanned Document [facility] Health Information Management [address] [place] [address] External, Provider Social History Tobacco Use Types [...] [facility] at [facility] [address] [facility] [address] [place], [place] [id number] Ronald Mills MD [address] [facility] [address] [place] [address] documented as of this encounter [...] documented as of this encounter Care Teams Incoming Freight Clerk Relationship Specialty Start Date End Date Caitlyn Bowie MD [address] [facility] [address] [place] [address] PCP - General Internal Medicine 05/06/21 Henry Kelly MD Pulmonary Department [address] [facility], [address] [place] [address] Physician Pulmonary Disease 09/06/17 06/22/20 documented as of this encounter
--- OUTSIDE RECORDS SUMMARY | 2025-03-26 17:06 | XMS_ITS | Encounter Summary ---
Author Organization [facility] Address [address] [place] [address] Care Team Providers Care Winch Driver Name Role Phone Caitlyn Bowie MD Primary Care Provider +1- [phone] Encounter Details Date Type Department Care Team (Late st Contact Info) Description 05/14/2020 Documentation Hematology Program at [address] [address] Taya Nuno RN Social History Tobacco Use [...] PM EDT [facility] at [address] [place] [address] Ronald Mills MD [address] [place] [phone] documented as of this encounter Visit Diagnoses Not on filedocumented in this encounter Additional Health Concerns Infection Onset Date Last Indicated Resolved Time COVID-19 03/05/2022 03/05/2022 03/15/2022 7:18 PM EDT Assessment Noted Time PHQ-9 Depression Total Score: 2 11/07/19 19 2:06 PM EDT documented as of this encounter Care Teams Winch Driver Relationship Specialty Start Date End Date Caitlyn Bowie MD [address] [facility] [address] [place] [address] PCP - General Internal Medicine 05/06/21 Henry Kelly MD Pulmonary Department [address] [facility], [address] [place] [address] Physician Pulmonary Disease 09/06/17 06/22/20 documented as of this encounter
--- OUTSIDE RECORDS SUMMARY | 2025-03-26 17:06 | XMS_ITS | Encounter Summary ---
Author Organization [facility] Address [address] [place] [address] Care Team Providers Care Accounts Payable Administrator Name Role Phone Caitlyn Bowie MD Primary Care Provider +1- [phone] Encounter Details Date Type Department Care Team (Late st Contact Info) Description 07/08/2020 Scanned Document [facility] Health Information Management [address] [place] [address] External, Provider Social History Tobacco Use Types [...] [facility] [address] [facility] Building [address] [place], [place] [phone] Ronald Mills MD [address] [place] [address] [address] [place] [address] documented as of this encounter [...] End Date Caitlyn Bowie MD [address] [address] PCP - General Internal Medicine 05/06/21 documented as of this encounter
--- OUTSIDE RECORDS SUMMARY | 2025-03-26 17:06 | XMS_ITS | Encounter Summary ---
Author Organization [facility] Address [address] [place] [address] Care Team Providers Care Song Writer Name Role Phone Caitlyn Bowie MD Primary Care Provider +1- [phone] Encounter Details Date Type Department Care Team (Late Contact Info) Description 09/18/2020 Scanned Document [facility] Health Information Management [address] [place] [phone] External, Provider Social History Tobacco Use Types [...] Center at [facility] [address] [facility] [address] [place], [place] [phone] Ronald Mills MD [address] [place] [address] [address] [place] [address] documented as of this encounter [...] documented as of this encounter Care Teams Song Writer Relationship Specialty Start Date End Date Caitlyn Bowie MD [address] [address] PCP - General Internal Medicine 05/06/21 documented as of this encounter
--- OUTSIDE RECORDS SUMMARY | 2025-03-26 17:06 | XMS_ITS | Encounter Summary ---
Author Organization [facility] Address [address] [place] [address] Care Team Providers Care Enamel Shader Name Role Phone Caitlyn Bowie MD Primary Care Provider +1- [phone] Encounter Details Date Type Department Care Team (Late st Contact Info) Description 02/20/2017 Scanned Document [facility] Health Information Management [address] [place] [phone] External, Provider Social History Tobacco Use Types [...] [facility] [address] [facility] [address] [place], [place] [phone] Ronald Mills MD [address] [facility] [address] [place] [address] documented as of this encounter [...] as of this encounter Care Teams Enamel Shader Relationship Specialty Start Date End Date Caitlyn Bowie MD [address] [facility] 1 [place] [address] PCP - General Internal Medicine 05/06/21 Henry Kelly MD Pulmonary Department [address] [facility], [address] [place] [address] Physician Pulmonary Disease 09/06/17 06/22/20 documented as of this encounter
--- OUTSIDE RECORDS SUMMARY | 2025-03-26 17:06 | XMS_ITS | Encounter Summary ---
Author Organization [facility] and [facility] Address [address] [place] [address] Care Team Providers Care Material Expeditor Name Role Phone Caitlyn Bowie MD Primary Care Provider +1- [phone] Encounter Details Date Type Department Care Team (Late st Contact Info) Description 02/02/2017 Scanned Document [facility] Health Information Management [address] [place] [phone] External, Provider Social History Tobacco Use Types [...] [facility] [address] [facility] [address] [place], [place] [phone] Ronald Mills MD [address] [facility] [address] [place] [address] documented as of this encounter Visit Diagnoses Not on filedocumented in this encounter Additional Health Concerns Infection Onset Date Last Indicated Resolved Time COVID-19 03/05/2022 03/05/2022 03/15/2022 7:18 PM EDT documented as of this encounter Care Teams Material Expeditor Relationship Specialty Start Date End Date Caitlyn Bowie MD [address] [facility] 1 [place] [address] PCP - General Internal Medicine 05/06/21 Henry Kelly MD Pulmonary Department [address] [facility], [address] [place] [address] Physician Pulmonary Disease 09/06/17 06/22/20 documented as of this encounter
--- OUTSIDE RECORDS SUMMARY | 2025-03-26 17:06 | XMS_ITS | Encounter Summary ---
Author Organization [facility] and [facility] Address [address] [place] [address] Care Team Providers Care Engravings Polisher Name Role Phone Caitlyn Bowie MD Primary Care Provider +1- [phone] Encounter Details Date Type Department Care Team (Late st Contact Info) Description 05/19/2020 Scanned Document Cancer Center at [address] [address] External, Provider Social History Tobacco Use Types [...] [facility] [address] [facility] [address] [place], [place] [phone] Ronald Mills MD [address] [place] [address] [address] [place] [address] documented as of [...] documented as of this encounter Care Teams Engravings Polisher Relationship Specialty Start Date End Date Caitlyn Bowie MD [address] [facility] 1 [place] [address] PCP - General Internal Medicine 05/06/21 Henry Kelly MD Pulmonary Department [address] [facility] [place] [address] Physician Pulmonary Disease 09/06/17 06/22/20 documented as of this encounter
--- OUTSIDE RECORDS SUMMARY | 2025-03-26 17:06 | XMS_ITS | Encounter Summary ---
Author Organization [facility] Address [address] [place] [phone] Care Team Providers Care Paper Cone Grader Name Role Phone Caitlyn Bowie MD Primary Care Provider +1- [phone] Encounter Details Date Type Department Care Team (Late st Contact Info) Description 09/17/2020 Scanned Document [facility] Health Information Management [address] [place] [phone] External, Provider Social History Tobacco Use Types [...] [facility] [address] [facility] [address] [place], [place] [phone] Ronald Mills MD [address] [place] [address] [address] [place] [address] documented as of this encounter [...] as of this encounter Care Teams Paper Cone Grader Relationship Specialty Start Date End Date Caitlyn Bowie MD [address] [address] PCP - General Internal Medicine 05/06/21 documented as of this encounter
--- OUTSIDE RECORDS SUMMARY | 2025-03-26 17:06 | XMS_ITS | Encounter Summary ---
Author Organization [facility] Address [address] [place] [address] Care Team Providers Care Fire Prevention Bureau Captain Name Role Phone Caitlyn Bowie MD Primary Care Provider +1- [phone] Encounter Details Date Type Department Care Team (Late st Contact Info) Description 09/16/2020 Scanned Document [facility] Health Information Management [address] [place] [phone] External, Provider Social History Tobacco Use Types [...] at [facility] [address] [facility] Building [address] [place], [place] [phone] Ronald Mills MD [address] [place] [address] [address] [place] [address] documented as of this encounter Procedures Procedure [...] of this encounter Care Teams Fire Prevention Bureau Captain Relationship Specialty Start Date End Date Caitlyn Bowie MD [address] [address] PCP - General Internal Medicine 05/06/21 documented as of this encounter
--- OUTSIDE RECORDS SUMMARY | 2025-03-26 17:06 | XMS_ITS | Encounter Summary ---
Author Organization [facility] and [facility] Address [address] [place] [address] Care Team Providers Care Compliance Paralegal Name Role Phone Caitlyn Bowie MD Primary Care Provider +1- [phone] Encounter Details Date Type Department Care Team (Late st Contact Info) Description 09/15/2020 Scanned Document INTERFACE DEFAULT [address] [place] [address] System, Provider Not In Social History Tobacco [...] [facility] at [facility] [address] [facility] [address] [place] [address] Ronald Mills MD [address] [place] [address] [address] [place] [address] documented as of this encounter Visit Diagnoses Not on filedocumented in this encounter Additional Health Concerns Infection Onset Date Last Indicated Resolved Time COVID-19 03/05/2022 03/05/2022 03/15/2022 7:18 PM EDT Assessment Noted Time PHQ-9 Depression Total Score: 2 11/07/19 19 2:06 PM EDT documented as of this encounter Care Teams Compliance Paralegal Relationship Specialty Start Date End Date Caitlyn Bowie MD [address] [address] PCP - General Internal Medicine 05/06/21 documented as of this encounter
--- OUTSIDE RECORDS SUMMARY | 2025-03-26 17:06 | XMS_ITS | Encounter Summary ---
Author Organization [facility] and [facility] Address [address] [place] [address] Care Team Providers Care Preform Plate Maker Name Role Phone Caitlyn Bowie MD Primary Care Provider +1- [phone] Encounter Details Date Type Department Care Team (Late st Contact Info) Description 09/15/2020 Scanned Document Cancer Center at [address] [address] External, Provider Social History Tobacco Use Types [...] Cancer Center at [facility] 240 [facility] Building [address] [place], [place] [phone] Ronald Mills MD [address] [place] [address] [address] [place] [address] documented as of this encounter [...] documented as of this encounter Care Teams Preform Plate Maker Relationship Specialty Start Date End Date Caitlyn Bowie MD [address] [address] PCP - General Internal Medicine 05/06/21 documented as of this encounter
--- OUTSIDE RECORDS SUMMARY | 2025-03-26 17:06 | XMS_ITS | Encounter Summary ---
Author Organization [facility] and [facility] Address [address] [place] [address] Care Team Providers Care Lens Assistant Name Role Phone Caitlyn Bowie MD Primary Care Provider +1- [phone] Encounter Details Date Type Department Care Team (Late Contact Info) Description 09/16/2020 Scanned Document [facility] Health Information Management [address] [place] [address] External, Provider Social History Tobacco Use Types [...] [facility] Building [address] [place], [place] [phone] Ronald Mills MD [address] [place] [address] [address] [place] [address] documented as of this encounter [...] as of this encounter Care Teams Lens Assistant Relationship Specialty Start Date End Date Caitlyn Bowie MD [address] [address] PCP - General Internal Medicine 05/06/21 documented as of this encounter
--- OUTSIDE RECORDS SUMMARY | 2025-03-26 17:07 | XMS_ITS | Encounter Summary ---
Author Organization [facility] and [facility] Address [address] [place] [address] Care Team Providers Care Clean Up Supervisor Name Role Phone Caitlyn Bowie MD Primary Care Provider +1- [phone] Encounter Details Date Type Department Care Team (Late st Contact Info) Description 07/26/2012 Abstract [facility] Health Information Management [address] [place] [address] [place], Primary Care [address] [place] [address] Social History Tobacco Use Types Packs/Day Years [...] PM EDT Telemedicine Cancer Center at [address] [place], [place] [address] Ronald Mills MD [address] [place] [address] documented as of this encounter Visit Diagnoses Not on filedocumented in this encounter Additional Health Concerns Infection Onset Date Last Indicated Resolved Time COVID-19 03/05/2022 03/05/2022 03/15/2022 7:18 PM EDT documented as of this encounter Care Teams Clean Up Supervisor Relationship Specialty Start Date End Date Caitlyn Bowie MD 3400 [facility] 1 [place] [address] PCP - General Internal Medicine 05/06/21 Henry Kelly MD Pulmonary Department 175 [facility], [address] [place] [address] Physician Pulmonary Disease 09/06/17 06/22/20 documented as of this encounter
--- OUTSIDE RECORDS SUMMARY | 2025-03-26 17:07 | XMS_ITS | Encounter Summary ---
Author Organization [facility] and [facility] Address 20 [place] [address] Care Team Providers Care Navigation Officer Name Role Phone Caitlyn Bowie MD Primary Care Provider +1- [phone] Encounter Details Date Type Department Care Team (Late st Contact Info) Description 01/28/2013 Scanned Document Thoracic Oncology Program at [address] [address] Solo Henry MD [address] [place] [address] Social History Tobacco Use Types Packs/Day [...] at [facility] [address] [facility] [address] [place], [place] [address] Ronald Mills MD 240 [facility] [address] [place] [address] documented as of this encounter Visit Diagnoses Not on filedocumented in this encounter Additional Health Concerns Infection Onset Date Last Indicated Resolved Time COVID-19 03/05/2022 03/05/2022 03/15/2022 7:18 PM EDT documented as of this encounter Care Teams Navigation Officer Relationship Specialty Start Date End Date Caitlyn Bowie MD 3400 [facility] [address] 1 [place] [address] PCP - General Internal Medicine 05/06/21 Henry Kelly MD Pulmonary Department 175 [facility], [address] [place] [address] Physician Pulmonary Disease 09/06/17 06/22/20 documented as of this encounter
--- OUTSIDE RECORDS SUMMARY | 2025-03-26 17:07 | XMS_ITS | Encounter Summary ---
Author Organization [facility] and [facility] Address [address] [place] [address] Care Team Providers Care Aboriginal Ceremonial Celebrant Name Role Phone Caitlyn Bowie MD Primary Care Provider +1- [phone] Encounter Details Date Type Department Care Team (Late st Contact Info) Description 12/16/2016 Scanned Document [facility] Health Information Management [address] [place] [address] External, Provider Social History Tobacco Use Types [...] Cancer Center at [facility] 240 [facility] [address] [place], [place] [id number] Ronald Mills MD 240 [facility] Max [address] [place] [address] documented as of this encounter [...] documented as of this encounter Care Teams Aboriginal Ceremonial Celebrant Relationship Specialty Start Date End Date Caitlyn Bowie MD 3400 [facility] 1 [place] [address] PCP - General Internal Medicine 05/06/21 Henry Kelly MD Pulmonary Department 175 [facility], [address] [place] [address] Physician Pulmonary Disease 09/06/17 06/22/20 documented as of this encounter
--- OUTSIDE RECORDS SUMMARY | 2025-03-26 17:07 | XMS_ITS | Encounter Summary ---
Author Organization [facility] Address 20 [place] [address] Care Team Providers Care Dairy Frozen Manager Name Role Phone Caitlyn Bowie MD Primary Care Provider +1- [phone] Encounter Details Date Type Department Care Team (Late st Contact Info) Description 12/19/2016 Scanned Document [facility] Health Information Management [address] [place] [address] External, Provider Social History Tobacco Use Types [...] [facility] at [facility] 240 [facility] [address] [place], [place] [address] Ronald Mills MD 240 [facility] Max [address] [place] [address] documented as of this encounter [...] as of this encounter Care Teams Dairy Frozen Manager Relationship Specialty Start Date End Date Caitlyn Bowie MD [facility] 1 [place] [address] PCP - General Internal Medicine 05/06/21 Henry Kelly MD Pulmonary Department 175 [facility], [address] [place] [address] Physician Pulmonary Disease 09/06/17 06/22/20 documented as of this encounter
--- OUTSIDE RECORDS SUMMARY | 2025-03-26 17:07 | XMS_ITS | Encounter Summary ---
Author Organization [facility] and [facility] Address [address] [place] [address] Care Team Providers Care Leasing Assistant Name Role Phone Caitlyn Bowie MD Primary Care Provider +1- [phone] Encounter Details Date Type Department Care Team (Late st Contact Info) Description 12/16/2016 Scanned Document [facility] Health Information Management [address] [place] [address] External, Provider Social History Tobacco Use Types [...] Center at [facility] [address] [facility] Building [address] [place], [place] [address] Ronald Mills MD 240 [facility] [address] [place] [address] documented as of this encounter [...] as of this encounter Care Teams Leasing Assistant Relationship Specialty Start Date End Date Caitlyn Bowie MD 3400 [facility] 1 [place] [address] PCP - General Internal Medicine 05/06/21 Henry Kelly MD Pulmonary Department 175 [facility], [address] [place] [address] Physician Pulmonary Disease 09/06/17 06/22/20 documented as of this encounter
--- OUTSIDE RECORDS SUMMARY | 2025-03-26 17:07 | XMS_ITS | Encounter Summary ---
Author Organization [facility] and [facility] Address [address] [place] [address] Care Team Providers Care Batch Unloader Name Role Phone Caitlyn Bowie MD Primary Care Provider +1- [phone] Encounter Details Date Type Department Care Team (Late st Contact Info) Description 04/13/2021 Scanned Document INTERFACE DEFAULT [address] [place] [address] System, Provider Not In Social History Tobacco [...] [facility] 240 [facility] [address] [place], [place] [phone] Ronald Mills MD [address] [place] [address] [address] [place] [address] documented as of this encounter [...] documented as of this encounter Care Teams Batch Unloader Relationship Specialty Start Date End Date Caitlyn Bowie MD [address] [address] PCP - General Internal Medicine 05/06/21 documented as of this encounter
--- OUTSIDE RECORDS SUMMARY | 2025-03-26 17:07 | XMS_ITS | Encounter Summary ---
Author Organization [facility] and [facility] Address [address] [place] [address] Care Team Providers Care Core Analyst Name Role Phone Caitlyn Bowie MD Primary Care Provider +1- [phone] Encounter Details Date Type Department Care Team (Late st Contact Info) Description 04/18/2013 Documentation Hematology Program at [address] [address] Isis Ragland RN Social History Tobacco Use [...] [facility] Building [address] [place], [place] [phone] Ronald Mills MD 240 [facility] A1 [place] [address] documented as of this encounter Visit Diagnoses Not on filedocumented in this encounter Additional Health Concerns Infection Onset Date Last Indicated Resolved Time COVID-19 03/05/2022 03/05/2022 03/15/2022 7:18 PM EDT documented as of this encounter Care Teams Core Analyst Relationship Specialty Start Date End Date Caitlyn Bowie MD 3400 [facility] 1 [place] [address] PCP - General Internal Medicine 05/06/21 Henry Kelly MD Pulmonary Department 175 [facility], [address] [place] [address] Physician Pulmonary Disease 09/06/17 06/22/20 documented as of this encounter
--- OUTSIDE RECORDS SUMMARY | 2025-03-26 17:07 | XMS_ITS | Encounter Summary ---
Author Organization [facility] and [facility] Address 20 [place] [address] Care Team Providers Care Orthopedic Shoes Salesperson Name Role Phone Caitlyn Bowie MD Primary Care Provider +1- [phone] Encounter Details Date Type Department Care Team (Late st Contact Info) Description 11/26/2019 Scanned Document Cancer Center at [address] [address] External, Provider Social History Tobacco Use Types [...] at [facility] 240 [facility] Building [address] [place], [place] [phone] Ronald Mills MD [address] [place] [address] [address]1 [place] [address] documented as of this encounter [...] as of this encounter Care Teams Orthopedic Shoes Salesperson Relationship Specialty Start Date End Date Caitlyn Bowie MD 3400 [facility] 1 [place] [address] PCP - General Internal Medicine 05/06/21 Henry Kelly MD Pulmonary Department 175 [facility], [address] [place] [address] Physician Pulmonary Disease 09/06/17 06/22/20 documented as of this encounter
--- OUTSIDE RECORDS SUMMARY | 2025-03-26 17:07 | XMS_ITS | Encounter Summary ---
Author Organization [facility] and [facility] Address [address] [place] [address] Care Team Providers Care License Clerk Name Role Phone Caitlyn Bowie MD Primary Care Provider +1- [phone] Encounter Details Date Type Department Care Team (Late st Contact Info) Description 12/16/2016 Scanned Document [facility] Health Information Management [address] [place] [address] External, Provider Social History Tobacco Use Types [...] Cancer Center at [facility] 240 [facility] Building [address] [place], [place] [phone] Ronald Mills MD 240 [facility] Max [address] [place] [address] documented as of this encounter [...] documented as of this encounter Care Teams License Clerk Relationship Specialty Start Date End Date Caitlyn Bowie MD 3400 [facility] 1 [place] [address] PCP - General Internal Medicine 05/06/21 Henry Kelly MD Pulmonary Department 175 [facility], [address] [place] [address] Physician Pulmonary Disease 09/06/17 06/22/20 documented as of this encounter
--- OUTSIDE RECORDS SUMMARY | 2025-03-26 17:07 | XMS_ITS | Encounter Summary ---
Author Organization [facility] and [facility] Address 20 [place] [address] Care Team Providers Care Insurance Premium Auditor Name Role Phone Caitlyn Bowie MD Primary Care Provider +1- [phone] Encounter Details Date Type Department Care Team (Late st Contact Info) Description 04/26/2017 Scanned Document Cardiovascular Medicine at [address] [place] [address] System, Provider Not In Social History Tobacco [...] Cancer Center at [facility] 240 [facility] Building [address] [place], [place] [address] Ronald Mills MD 240 [facility] A1 [place] [address] documented as of this encounter [...] as of this encounter Care Teams Insurance Premium Auditor Relationship Specialty Start Date End Date Caitlyn Bowie MD 3400 [facility] Max 1 [place] [address] PCP - General Internal Medicine 05/06/21 Henry Kelly MD Pulmonary Department 175 [facility], [address] [place] [address] Physician Pulmonary Disease 09/06/17 06/22/20 documented as of this encounter
--- OUTSIDE RECORDS SUMMARY | 2025-03-26 17:07 | XMS_ITS | Clinical Summary ---
Author Organization [address] Address 20 [place] [address] Phone Care Team Providers Care Church History Teacher Name Role Phone Caitlyn Bowie MD Primary Care Provider +1- [phone] Allergies Active Allergy Reactions Criticality Noted Date [...] Description 01/20/2025 Telephone [facility] at [address] [address] Ronald Mills MD Triage from Last 3 [...] PM EDT Telemedicine Cancer Center at [address] [place], [place] [address] Ronald Mills MD [address] [place] [address] Rd [address] [place] [address] Health Maintenance Due Date Last Done [...] - 144 mmol/L 04/05/2022 1:43 PM EDT [facility] OF [facility]ORY MEDICINE [facility] Potassium 4.7 3.3 - 5.3 mmol/L 04/05/2022 1:43 PM EDT [facility] MEDIC[facility] Chloride 100 98 - 107 mmol/L 04/05/2022 1:43 PM EDT [facility] MEDICINE [facility] CO2 30 20 - 30 mmol/L 04/05/2022 1:43 PM EDT [facility] Anion Gap 8 7 - 17 04/05/2022 1:43 PM EDT [facility] Glucose 115(H) 70 - 100 mg/dL 04/05/2022 1:43 PM EDT [facility]ORY MEDICINE [facility] BUN 16 8 - 23 mg/dL 04/05/2022 1:43 PM EDT [facility] OF LABORATORY MEDICINE [facility] Creatinine 0.89 0.40 - 1.30 mg/dL 04/05/2022 1:43 PM EDT [facility]IC[facility] Calcium 10.5(H) 8.8 - 10.2 mg/dL 04/05/2022 1:43 PM EDT [facility]ORY MEDICINE [facility] BUN/Creatinine Ratio 18.0 8.0 - 23.0 03/11 1:43 PM EDT [facility]PART[facility] MEDICINE [facility] Total Protein 7.0 6.6 - 8.7 g/dL 04/05/2022 1:43 PM [facility] DEPARTMENT OF LABORATORY MEDICINE [facility] Albumin 4.2 3.6 - 4.9 g/dL 04/05/2022 1:43 PM T [facility] DEPART[facility] OF LABORATORY MEDICINE [facility] Total Bilirubin 0.6 <=1.2 mg/dL 04/05/2022 1:43 PM [facility] DEPARTMENT LABORATORY MEDICINE [facility] Alkaline Phosphatase 58 9 - 122 U/L 04/05/2022 1:43 PM [facility] DEPARTMENT LABORATORY MEDICINE [facility] Alanine Aminotransferase (ALT) 19 10 - 35 U/L 04/05/2022 1:43 PM [facility] DEPARTMENT OF LABORATORY MEDICINE [facility] Comment:Calcium dobesilate c an cause artificially low ALT results at therapeutic concentrations Aspartate Aminotransferase (AST) 26 10 - 35 U/L 04/05/2022 1:43 PM [facility] DEPARTMENT LABORATORY MEDICINE [facility] Globulin 2.8 2.3 - 3.5 g/dL 04/05/2022 1:43 PM [facility] DEPARTMENT LABORATORY MEDICINE [facility] A/G Ratio 1.5 1.0 - 2.2 04/05/2022 1:43 PM EDT [facility] DEPART[facility] OF LABORATORY MEDICINE [facility] AST/ALT Ratio 1.4 See Comment 04/05/2022 1:43 PM EDT [facility] DEPART[facility] OF LABORATORY MEDICINE [facility] Comment: Adult with mild elevations of transaminases (< 5 times upper limit of normal): AST/ALT > 2 suggests alcoholic liver injury AST/ALT < 1 suggests non-alcoholic fatty liver disease (NAFLD) [place] (healthy): AST/ALT can be > 3 on day 0 AST/ALT < 2 by day 5 The thresholds provided focus on the most common etiologies of elevated serum transaminase levels and the associated alteration of AST:ALT ratios; they are not intended to exclude other feasible and clinically appropriate possibilities eGFR (Creatinine) >60 >=60 mL/min/1.7 3m2 04/05/2022 1:43 PM EDT [facility] DEPART[facility] OF LABORATORY MEDICINE [facility] Comment:Estimated glomerular filtration rate (eGFR) was [...] LAB BLOOD ORDERABLES Final Resul t [facility] OF [facility]ORAT[facility] MEDICINE [facility] [address] [place] [address] * Bone Density Result Scan (05/10/2017) Historical Provider IMG SCAN REPORTS Final Resul t * (ABNORMAL) Lipid panel (03/18/2016 2:55 PM EDT) Cholesterol 229(H) 115 - 199 mg/dL 03/18/2016 8:11 PM EDT [facility] HDL 83 >=40 mg/dL 03/18/2016 8:11 PM EDT [facility] Triglycerides 71 30 - 150 mg/dL 03/18/2016 8:11 PM EDT [facility] Chol/HDL Ratio 2.8 <=5 03/18/2016 8:11 PM EDT [facility] Comment:Cholesterol/HDL rati o cannot be calculated. LDL Calculated 132 See Comment mg/dL 03/18/2016 8:11 PM EDT [facility] Comment: <100: Optimal 100-129: Near optimal/above optimal 130-159: Borderline high risk 160-189: High risk >=190: Very high risk Blood specimen (specimen) Venipuncture / Unknown 03/18/2016 2:55 PM EDT 03/18/2016 3:17 PM EDT Narrative [facility] - 03/18/2016 8:11 PM EDT $18.27 us Sangeeta Garces MD LAB BLOOD ORDERABLES Fin al Result Performing Organization Address City/State/[facility] Co de Phone Number [facility] [address] [place] [address] * MAMMOGRAPHY REPORT (04/25/2013 6:47 AM EDT) 04/25/2013 6:47 AM EDT us Provider Not In System IMG SCAN REPORTS Final Re sult from Last 3 Months or Most Recently Relevant to Health Maintenance Insurance MEDICARE [facility] MEDICARE [facility] MEDIC[facility] MEDICARE MEDICARE [facility] Advance Directives * Full ACLS (Latest Code Status on File) Date Activated Date Inactivated Comments 12/15/2018 7:13 PM 12/16/2018 6:09 PM * Full Interventions Date Activated Date Inactivated Comments 03/18/2016 6:34 PM 03/19/2016 6:40 PM Care Teams Church History Teacher Relationship Specialty Start Date End Date Caitlyn Bowie MD [address] [address] PCP - General Internal Medicine 05/06/21
--- OUTSIDE RECORDS SUMMARY | 2025-03-26 17:07 | XMS_ITS | Encounter Summary ---
Author Organization [facility] and [facility] Address [address] [place] [address] Care Team Providers Care Cleaner Touch Up Worker Name Role Phone Caitlyn Bowie MD Primary Care Provider +1- [phone] Encounter Details Date Type Department Care Team (Late st Contact Info) Description 08/16/2012 Abstract [facility] Health Information Management [address] [place] [address] [place], Primary Care [address] [place] [address] Social History Tobacco Use Types Packs/Day Years [...] PM EDT Telemedicine Cancer Center at [address] [place], [place] [address] Ronald Mills MD 240 [facility] Max [address] [place] [address] documented as of this encounter Visit Diagnoses Not on filedocumented in this encounter Additional Health Concerns Infection Onset Date Last Indicated Resolved Time COVID-19 03/05/2022 03/05/2022 03/15/2022 7:18 PM EDT documented as of this encounter Care Teams Cleaner Touch Up Worker Relationship Specialty Start Date End Date Caitlyn Bowie MD 3400 [facility] 1 [place] [address] PCP - General Internal Medicine 05/06/21 Henry Kelly MD Pulmonary Department [address] [place] [address], [address] [place] [address] Physician Pulmonary Disease 09/06/17 06/22/20 documented as of this encounter
--- OUTSIDE RECORDS SUMMARY | 2025-03-26 17:07 | XMS_ITS | Encounter Summary ---
Author Organization [facility] and [facility] Address [address] [place] [address] Care Team Providers Care Distribution Clerk Name Role Phone Caitlyn Bowie MD Primary Care Provider +1- [phone] Encounter Details Date Type Department Care Team (Late st Contact Info) Description 01/22/2020 Scanned Document Lab for [facility] [address] [place] [address] Kerwin Menjivar MD 260 [facility] 3 [place] [address] Social History Tobacco Use Types [...] PM EDT Telemedicine Cancer Center at [address] [place] [address] Ronald Mills MD 240 [facility] Max [address] [place] [address] documented as of this encounter Visit Diagnoses Not on filedocumented in this encounter Additional Health Concerns Infection Onset Date Last Indicated Resolved Time COVID-19 03/05/2022 03/05/2022 03/15/2022 7:18 PM EDT Assessment Noted Time PHQ-9 Depression Total Score: 2 11/07/19 19 2:06 PM EDT documented as of this encounter Care Teams Distribution Clerk Relationship Specialty Start Date End Date Caitlyn Bowie MD [address] [address] PCP - General Internal Medicine 05/06/21 Henry Kelly MD Pulmonary Department [address] [place] [address], [address] [place] [address] Physician Pulmonary Disease 09/06/17 06/22/20 documented as of this encounter
--- OUTSIDE RECORDS SUMMARY | 2025-03-26 17:07 | XMS_ITS | Encounter Summary ---
Author Organization [facility] Address [address] [place] [address] Phone Care Team Providers Care Account Services Manager Name Role Phone Caitlyn Bowie MD Primary Care Provider +1- [phone] Encounter Details Date Type Department Care Team (Late Contact Info) Description 12/10/2024 Documentation Only [facility] [address] [place] [address] Marina Abdi 2150 [place] [address] Social History Tobacco Use Types [...] Visit [facility] [address] [place] [address] Rubén Ashraf MD [address] [place] [address] [place] [address] documented as of this encounter Visit Diagnoses Not on filedocumented in this encounter Care Teams Account Services Manager Relationship Specialty Start Date End Date Caitlyn Bowie MD [address]00 [place], [place] PCP - General Internal Medicine 09/24/24 documented as of this encounter
--- OUTSIDE RECORDS SUMMARY | 2025-03-26 17:07 | XMS_ITS | Encounter Summary ---
Author Organization [facility] and [facility] Address [address] [place] [address] Care Team Providers Care Liner Worker Name Role Phone Caitlyn Bowie MD Primary Care Provider +1- [phone] Encounter Details Date Type Department Care Team (Late st Contact Info) Description 06/21/2012 Abstract Head & Neck Cancers Program at [address] [id number] Mikel Lloyd MD [address] [place] [phone] (Fax) Social History Tobacco Use Types Packs/Day [...] – [facility] [address] [facility] [address] [place] [address] Ronald Mills MD 240 [facility] [address] [place] [address] documented as of this encounter Visit Diagnoses Not on filedocumented in this encounter Additional Health Concerns Infection Onset Date Last Indicated Resolved Time COVID-19 03/05/2022 03/05/2022 03/15/2022 7:18 PM EDT documented as of this encounter Care Teams Liner Worker Relationship Specialty Start Date End Date Caitlyn Bowie MD 3400 [facility] 1 [place] [address] PCP - General Internal Medicine 05/06/21 Henry Kelly MD Pulmonary Department [address] [place] [address], [address] [place] [address] Physician Pulmonary Disease 09/06/17 06/22/20 documented as of this encounter
--- OUTSIDE RECORDS SUMMARY | 2025-03-26 17:07 | XMS_ITS | Encounter Summary ---
Author Organization [facility] and [facility] Address [address] [place] [address] Care Team Providers Care Head Of Advertising Name Role Phone Caitlyn Bowie MD Primary Care Provider +1- [phone] Encounter Details Date Type Department Care Team (Late st Contact Info) Description 06/27/2019 Scanned Document Onco-Oncology Program at [address] [place] [address] Norma Renee MD [address] [place] [address] 2 [place] [address] Social History Tobacco Use Types [...] PM EDT Telemedicine Cancer Center at [address] [place], [place] [phone] Ronald Mills MD 240 [facility] A1 [place] [address] documented as of this encounter Visit Diagnoses Not on filedocumented in this encounter Additional Health Concerns Infection Onset Date Last Indicated Resolved Time COVID-19 03/05/2022 03/05/2022 03/15/2022 7:18 PM EDT Assessment Noted Time PHQ-9 Depression Total Score: 2 11/07/19 19 2:06 PM EDT documented as of this encounter Care Teams Head Of Advertising Relationship Specialty Start Date End Date Caitlyn Bowie MD 3400 [facility] 1 [place] [address] PCP - General Internal Medicine 05/06/21 Henry Kelly MD Pulmonary Department 175 [facility], [address] [place] [address] Physician Pulmonary Disease 09/06/17 06/22/20 documented as of this encounter
--- OUTSIDE RECORDS SUMMARY | 2025-03-26 17:07 | XMS_ITS | Encounter Summary ---
Author Organization [facility] and [facility] Address [address] [place] [address] Care Team Providers Care Drill Setup Operator Name Role Phone Caitlyn Bowie MD Primary Care Provider +1- [phone] Encounter Details Date Type Department Care Team (Late st Contact Info) Description 09/07/2020 Scanned Document Cardiovascular Medicine at [address] [place] [address] Norma Renee MD [address] [place] [phone] Social History Tobacco Use Types Packs/Day Years [...] PM EDT Telemedicine Cancer Center at [address] [place] [address] Ronald Mills MD [address] [place] [address] [address] [place] [address] documented as of this encounter Visit Diagnoses Not on filedocumented in this encounter Additional Health Concerns Infection Onset Date Last Indicated Resolved Time COVID-19 03/05/2022 03/05/2022 03/15/2022 7:18 PM EDT Assessment Noted Time PHQ-9 Depression Total Score: 2 11/07/19 19 2:06 PM EDT documented as of this encounter Care Teams Drill Setup Operator Relationship Specialty Start Date End Date Caitlyn Bowie MD [address] [address] PCP - General Internal Medicine 05/06/21 documented as of this encounter
--- OUTSIDE RECORDS SUMMARY | 2025-03-26 17:07 | XMS_ITS | Encounter Summary ---
Author Organization [facility] and [facility] Address [address] [place] [address] Care Team Providers Care Heater Tender Name Role Phone Caitlyn Bowie MD Primary Care Provider +1- [phone] Encounter Details Date Type Department Care Team (Late st Contact Info) Description 06/27/2019 Scanned Document Onco-Oncology Program at [address] [place] [address] Norma Renee MD [address] [place] [address] 2 [place] [address] Social History Tobacco Use Types [...] 4:00 PM EDT Telemedicine Cancer Center at [address] [place], [place] [phone] Ronald Mills MD 240 [facility] A1 [place] [address] documented as of this encounter Visit Diagnoses Not on filedocumented in this encounter Additional Health Concerns Infection Onset Date Last Indicated Resolved Time COVID-19 03/05/2022 03/05/2022 03/15/2022 7:18 PM EDT Assessment Noted Time PHQ-9 Depression Total Score: 2 11/07/19 19 2:06 PM EDT documented as of this encounter Care Teams Heater Tender Relationship Specialty Start Date End Date Caitlyn Bowie MD 3400 [facility] 1 [place] [address] PCP - General Internal Medicine 05/06/21 Henry Kelly MD Pulmonary Department 175 [facility], [address] [place] [address] Physician Pulmonary Disease 09/06/17 06/22/20 documented as of this encounter
--- OUTSIDE RECORDS SUMMARY | 2025-03-26 17:07 | XMS_ITS | Encounter Summary ---
Author Organization [facility] and [facility] Address [address] [place] [address] Care Team Providers Care Team Leader Surgery Name Role Phone Caitlyn Bowie MD Primary Care Provider +1- [phone] Encounter Details Date Type Department Care Team (Late st Contact Info) Description 04/26/2017 Scanned Document Cardiovascular Medicine at [address] [place] [address] Norma Renee MD [address] [place] [phone] Social History Tobacco Use Types Packs/Day Years [...] PM EDT Telemedicine Cancer Center at [address] [place], [place] [phone] Ronald Mills MD [address] [place] [address] [address] [place] [address] documented as of this encounter Visit Diagnoses Not on filedocumented in this encounter Additional Health Concerns Infection Onset Date Last Indicated Resolved Time COVID-19 03/05/2022 03/05/2022 03/15/2022 7:18 PM EDT documented as of this encounter Care Teams Team Leader Surgery Relationship Specialty Start Date End Date Caitlyn Bowie MD 3400 [facility] 1 [place] [address] PCP - General Internal Medicine 05/06/21 Henry Kelly MD Pulmonary Department 175 [facility], [address] [place] [address] Physician Pulmonary Disease 09/06/17 06/22/20 documented as of this encounter
--- OUTSIDE RECORDS SUMMARY | 2025-03-26 17:07 | XMS_ITS | Clinical Summary ---
Author Organization [facility] Address [address] [place] [address] Care Team Providers Care Coding Director Name Role Phone Brennan Burnett MD Primary Care Provider [phone] Allergies Active Allergy Reactions Criticality Noted Date [...] age to complete this topic Care Teams Coding Director Relationship Specialty Start Date End Date Brennan Burnett MD [address] [place] [address] PCP - General Internal Medicine 07/06/20
--- OUTSIDE RECORDS SUMMARY | 2025-03-26 17:07 | XMS_ITS | Encounter Summary ---
Author Organization [facility] and [facility] Address [address] [place] [address] Care Team Providers Care Technical Manager Chemical Plant Name Role Phone Caitlyn Bowie MD Primary Care Provider +1- [phone] Encounter Details Date Type Department Care Team (Late st Contact Info) Description 01/28/2013 Scanned Document Thoracic Oncology Program at [address] [address] Solo Henry MD [address] [place] [address] Social History Tobacco Use Types Packs/Day [...] [facility] Building [address] [place], [place] [address] Ronald Mills MD 240 [facility] Max [address] [place] [address] documented as of this encounter Visit Diagnoses Not on filedocumented in this encounter Additional Health Concerns Infection Onset Date Last Indicated Resolved Time COVID-19 03/05/2022 03/05/2022 03/15/2022 7:18 PM EDT documented as of this encounter Care Teams Technical Manager Chemical Plant Relationship Specialty Start Date End Date Caitlyn Bowie MD 3400 [facility] Max 1 [place] [address] PCP - General Internal Medicine 05/06/21 Henry Kelly MD Pulmonary Department 175 [facility], [address] [place] [address] Physician Pulmonary Disease 09/06/17 06/22/20 documented as of this encounter
--- OUTSIDE RECORDS SUMMARY | 2025-03-26 17:07 | XMS_ITS | Encounter Summary ---
Author Organization [facility] Address 20 [place] [address] Care Team Providers Care Tightening Machine Operator Name Role Phone Caitlyn Bowie MD Primary Care Provider +1- [phone] Encounter Details Date Type Department Care Team (Late st Contact Info) Description 08/09/2017 Scanned Document Cardiovascular Medicine at [address] [place] [address] System, Provider Not In Social History Tobacco [...] [facility] at [facility] 240 [facility] Building [address] [place] [address] Ronald Mills MD 240 [facility] Max [address]1 [place] [address] documented as of this encounter [...] documented as of this encounter Care Teams Tightening Machine Operator Relationship Specialty Start Date End Date Caitlyn Bowie MD 3400 [facility] Max 1 [place] [address] PCP - General Internal Medicine 05/06/21 Henry Kelly MD Pulmonary Department 175 [facility], [address] [place] [address] Physician Pulmonary Disease 09/06/17 06/22/20 documented as of this encounter
--- OUTSIDE RECORDS SUMMARY | 2025-03-26 17:07 | XMS_ITS | Encounter Summary ---
Author Organization [facility] and [facility] Address 20 [place] [address] Care Team Providers Care Australian Rules Footballer Name Role Phone Caitlyn Bowie MD Primary Care Provider +1- [phone] Encounter Details Date Type Department Care Team (Late st Contact Info) Description 08/29/2019 Scanned Document Cancer Center at [address] [address] External, Provider Social History Tobacco Use Types [...] at [facility] 240 [facility] Building [address] [place], [place] [address] Ronald Mills MD [address] [place] [address] [address] [place] [address] documented as of this encounter [...] documented as of this encounter Care Teams Australian Rules Footballer Relationship Specialty Start Date End Date Caitlyn Bowie MD 3400 [facility] 1 [place] [address] PCP - General Internal Medicine 05/06/21 Henry Kelly MD Pulmonary Department 175 [facility], [address] [place] [address] Physician Pulmonary Disease 09/06/17 06/22/20 documented as of this encounter
--- OUTSIDE RECORDS SUMMARY | 2025-03-26 17:07 | XMS_ITS | Encounter Summary ---
Author Organization [facility] and [facility] Address [address] [place] [address] Care Team Providers Care Business Analyst Sales Operations Name Role Phone Caitlyn Bowie MD Primary Care Provider +1- [phone] Encounter Details Date Type Department Care Team (Late st Contact Info) Description 08/29/2019 Scanned Document Cancer Center at [address] [address] External, Provider Social History Tobacco Use Types [...] [facility] 240 [facility] Building [address] [place], [place] [address] Ronald Mills MD [address] [place] [address] [address] [place] [address] documented as of [...] as of this encounter Care Teams Business Analyst Sales Operations Relationship Specialty Start Date End Date Caitlyn Bowie MD 3400 [facility] 1 [place] [address] PCP - General Internal Medicine 05/06/21 Henry Kelly MD Pulmonary Department 175 [facility], [address] [place] [address] Physician Pulmonary Disease 09/06/17 06/22/20 documented as of this encounter
--- OUTSIDE RECORDS SUMMARY | 2025-03-26 17:07 | XMS_ITS | Encounter Summary ---
Author Organization [facility] Address [address] [place] [address] Phone Care Team Providers Care Roll Icer Machine Name Role Phone Caitlyn Bowie MD Primary Care Provider +1- [phone] Encounter Details Date Type Department Care Team (Late Contact Info) Description 12/10/2024 Documentation Only [facility] [address] [place] [address] Marina Abdi [address] [place] [address] Social History Tobacco Use Types [...] [facility] [address] [place] [address] Rubén Ashraf MD [address] [place] [address] [place] [address] documented as of this encounter Visit Diagnoses Not on filedocumented in this encounter Care Teams Roll Icer Machine Relationship Specialty Start Date End Date Caitlyn Bowie MD 3400 [place], [place] PCP - General Internal Medicine 09/24/24 documented as of this encounter
--- OUTSIDE RECORDS SUMMARY | 2025-03-26 17:07 | XMS_ITS | Encounter Summary ---
Author Organization [facility] and [facility] Address [address] [place] [address] Care Team Providers Care Unit Reactor Operator Name Role Phone Caitlyn Bowie MD Primary Care Provider +1- [phone] Encounter Details Date Type Department Care Team (Late Contact Info) Description 09/15/2020 Scanned Document [facility] Health Information Management [address] [place] [address] External, Provider Social History Tobacco Use Types [...] Center at [facility] 240 [facility] Building [address] [place], [place] [phone] Ronald Mills MD [address] [place] [address] [address]1 [place] [address] documented as of this encounter [...] as of this encounter Care Teams Unit Reactor Operator Relationship Specialty Start Date End Date Caitlyn Bowie MD [address] [address] PCP - General Internal Medicine 05/06/21 documented as of this encounter
--- OUTSIDE RECORDS SUMMARY | 2025-03-26 17:07 | XMS_ITS | Encounter Summary ---
Author Organization [facility] Address [address] [place] [address] Phone Care Team Providers Care County Engineer Name Role Phone Caitlyn Bowie MD Primary Care Provider +1- [phone] Encounter Details Date Type Department Care Team (Late Contact Info) Description 12/10/2024 Documentation Only [facility] [address] [place] [address] Marina Abdi 2150 [place] [address] Social History Tobacco Use Types [...] Visit [facility] [address] [place] [address] Rubén Ashraf MD [address] [place] [address] [place] [address] documented as of this encounter Visit Diagnoses Not on filedocumented in this encounter Care Teams County Engineer Relationship Specialty Start Date End Date Caitlyn Bowie MD 3400 [place], [place] PCP - General Internal Medicine 09/24/24 documented as of this encounter
--- OUTSIDE RECORDS SUMMARY | 2025-03-26 17:07 | XMS_ITS | Encounter Summary ---
Author Organization [facility] Address [address] [place] [address] Care Team Providers Care Dry Plasterer Helper Name Role Phone Caitlyn Bowie MD Primary Care Provider +1- [phone] Encounter Details Date Type Department Care Team (Late st Contact Info) Description 04/16/2021 Scanned Document INTERFACE DEFAULT [address] [place] [address] System, Provider Not In Social History [...] [facility] 240 [facility] Building [address] [place], [place] [address] Ronald Mills MD [address] [place] [address] [address]1 [place] [address] documented as of this encounter [...] as of this encounter Care Teams Dry Plasterer Helper Relationship Specialty Start Date End Date Caitlyn Bowie MD [facility] [address] [address] PCP - General Internal Medicine 05/06/21 documented as of this encounter
--- OUTSIDE RECORDS SUMMARY | 2025-03-26 17:07 | XMS_ITS | Encounter Summary ---
Author Organization [facility] Address [address] [place] [address] Care Team Providers Care Parachute Marker Name Role Phone Caitlyn Bowie MD Primary Care Provider +1- [phone] Encounter Details Date Type Department Care Team (Late st Contact Info) Description 08/21/2017 Scanned Document [facility] Health Information Management [address] [place] [address] External, Provider Social History Tobacco Use Types [...] [facility] 240 [facility] Building [address] [place], [place] [address] Ronald Mills MD [address] [place] [address] [address]1 [place] [address] documented as of this encounter [...] as of this encounter Care Teams Parachute Marker Relationship Specialty Start Date End Date Caitlyn Bowie MD 3400 [facility] 1 [place] [address] PCP - General Internal Medicine 05/06/21 Henry Kelly MD Pulmonary Department 175 [facility], [address] [place] [address] Physician Pulmonary Disease 09/06/17 06/22/20 documented as of this encounter
--- OUTSIDE RECORDS SUMMARY | 2025-03-26 17:07 | XMS_ITS | Encounter Summary ---
Author Organization [facility] Address [address] [place] [address] Care Team Providers Care Print Journalist Name Role Phone Caitlyn Bowie MD Primary Care Provider +1- [phone] Encounter Details Date Type Department Care Team (Late st Contact Info) Description 12/03/2019 Scanned Document [facility] Health Information Management [address] [place] [address] External, Provider Social History Tobacco Use Types [...] [facility] 240 [facility] Building [address] [place] [address] Ronald Mills MD [address] [place] [address] [address]1 [place] [address] documented as of this encounter Visit Diagnoses Not on filedocumented in this encounter Additional Health Concerns Infection Onset Date Last Indicated Resolved Time COVID-19 03/05/2022 03/05/2022 03/15/2022 7:18 PM EDT Assessment Noted Time PHQ-9 Depression Total Score: 2 11/07/19 19 2:06 PM EDT documented as of this encounter Care Teams Print Journalist Relationship Specialty Start Date End Date Caitlyn Bowie MD 3400 [facility] 1 [place] [address] PCP - General Internal Medicine 05/06/21 Henry Kelly MD Pulmonary Department 175 [facility], [address] [place] [address] Physician Pulmonary Disease 09/06/17 06/22/20 documented as of this encounter
--- OUTSIDE RECORDS SUMMARY | 2025-03-26 17:07 | XMS_ITS | Encounter Summary ---
Author Organization [facility] Address [address] [place] [address] Care Team Providers Care Tare Man Name Role Phone Caitlyn Bowie MD Primary Care Provider +1- [phone] Encounter Details Date Type Department Care Team (Late st Contact Info) Description 07/01/2019 Scanned Document Onco-Oncology Program at [address] [place] [address] Norma Renee MD [address] [place] [address] 2 [place] [phone] Social History Tobacco Use Types Packs/Day Years [...] PM EDT Telemedicine Cancer Center at [address] [place], [place] [phone] Ronald Mills MD 240 [facility] A1 [place] [address] documented as of this encounter Visit Diagnoses Not on filedocumented in this encounter Additional Health Concerns Infection Onset Date Last Indicated Resolved Time COVID-19 03/05/2022 03/05/2022 03/15/2022 7:18 PM EDT Assessment Noted Time PHQ-9 Depression Total Score: 2 11/07/19 19 2:06 PM EDT documented as of this encounter Care Teams Tare Man Relationship Specialty Start Date End Date Caitlyn Bowie MD 3400 [facility] 1 [place] [address] PCP - General Internal Medicine 05/06/21 Henry Kelly MD Pulmonary Department 175 [facility], [address] [place] [address] Physician Pulmonary Disease 09/06/17 06/22/20 documented as of this encounter
--- OUTSIDE RECORDS SUMMARY | 2025-03-26 17:07 | XMS_ITS | Encounter Summary ---
Author Organization [facility] and [facility] Address [address] [place] [address] Care Team Providers Care Ethnographic Materials Conservator Name Role Phone Caitlyn Bowie MD Primary Care Provider +1- [phone] Encounter Details Date Type Department Care Team (Late st Contact Info) Description 07/12/2019 Scanned Document Onco-Oncology Program at [address] [place] [address] Norma Renee MD [address] [place] [address] 2 [place] [address] Social History Tobacco Use Types [...] PM EDT Telemedicine Cancer Center at [address] [place], [place] [phone] Ronald Mills MD 240 [facility] A1 [place] [address] documented as of this encounter Visit Diagnoses [...] Date Caitlyn Bowie MD 3400 [facility] 1 [place] [address] PCP - General Internal Medicine 05/06/21 Henry Kelly MD Pulmonary Department 175 [facility], [address] [place] [address] Physician Pulmonary Disease 09/06/17 06/22/20 documented as of this encounter
--- OUTSIDE RECORDS SUMMARY | 2025-03-26 17:07 | XMS_ITS | Encounter Summary ---
Author Organization [facility] and [facility] Address [address] [place] [address] Care Team Providers Care Lean Leader Name Role Phone Caitlyn Bowie MD Primary Care Provider +1- [phone] Encounter Details Date Type Department Care Team (Late st Contact Info) Description 12/16/2016 Scanned Document [facility] Health Information Management [address] [place] [address] External, Provider Social History Tobacco Use Types [...] [facility] 240 [facility] Building [address] [place], [place] [phone] Ronald Mills MD 240 [facility] Max [address]1 [place] [address] documented as of this encounter [...] documented as of this encounter Care Teams Lean Leader Relationship Specialty Start Date End Date Caitlyn Bowie MD 3400 [facility] 1 [place] [address] PCP - General Internal Medicine 05/06/21 Henry Kelly MD Pulmonary Department 175 [facility], [address] [place] [address] Physician Pulmonary Disease 09/06/17 06/22/20 documented as of this encounter
--- OUTSIDE RECORDS SUMMARY | 2025-03-26 17:07 | XMS_ITS | Encounter Summary ---
Author Organization [facility] Address [address] [place] [address] Phone Care Team Providers Care Taxicab Driver Name Role Phone Caitlyn Bowie MD Primary Care Provider +1- [phone] Encounter Details Date Type Department Care Team (Late Contact Info) Description 12/10/2024 Documentation Only [facility] [address] [place] [address] Marina Abdi 2150 [place] [address] Social History Tobacco Use Types [...] Visit [facility] [address] [place] [address] Rubén Ashraf MD [address] [place] [address] [place] [address] documented as of this encounter Visit Diagnoses Not on filedocumented in this encounter Care Teams Taxicab Driver Relationship Specialty Start Date End Date Caitlyn Bowie MD 3400 [place], [place] PCP - General Internal Medicine 09/24/24 documented as of this encounter
--- OUTSIDE RECORDS SUMMARY | 2025-03-26 17:07 | XMS_ITS | Encounter Summary ---
Author Organization [facility] and [facility] Address [address] [place] [address] Care Team Providers Care Nozzle Operator Name Role Phone Caitlyn Bowie MD Primary Care Provider +1- [phone] Encounter Details Date Type Department Care Team (Latest Contact Info) Description 04/15/2013 Transcribed Orders [facility] 800 [place] [address] Tian Atwood MD 280 [facility] 102 [place] [address] Unspecified hypothyroidism (Primary Dx) Social [...] Center at [facility] 240 [facility] [address] [place] [address] Ronald Mills MD 240 [facility] A1 [place] [address] documented as of this encounter Results * Copper, serum total (YH) (04/15/2013 4:31 PM EDT) Copper, Serum Total SEE BELOW [facility] Comment: Test Result Flag Unit RefValue Copper, S 1.35 mcg/mL 0.75-1.45 04/15/2013 4:31 PM EDT us Tian Atwood MD LAB BLOOD ORDERABLES Final R esult [facility] [address] [place] [address] documented in this encounter Visit Diagnoses Diagnosis Unspecified hypothyroidism- Primary documented in this encounter Additional Health Concerns Infection Onset Date Last Indicated Resolved Time COVID-19 03/05/2022 03/05/2022 03/15/2022 7:18 PM EDT documented as of this encounter Care Teams Nozzle Operator Relationship Specialty Start Date End Date Caitlyn Bowie MD 3400 [facility] 1 [place] [address] PCP - General Internal Medicine 05/06/21 Henry Kelly MD Pulmonary Department 175 [facility], [address] [place] [address] Physician Pulmonary Disease 09/06/17 06/22/20 documented as of this encounter
--- OUTSIDE RECORDS SUMMARY | 2025-03-26 17:07 | XMS_ITS | Encounter Summary ---
Author Organization [facility] and [facility] Address [address] [place] [address] Care Team Providers Care Berry Grower Name Role Phone Caitlyn Bowie MD Primary Care Provider +1- [phone] Encounter Details Date Type Department Care Team (Late st Contact Info) Description 03/01/2017 Scanned Document Onco-Oncology Program at [address] [place] [address] Norma Renee MD [address] [place] [address] 2 [place] [address] Social History Tobacco Use Types Packs/Day Years [...] 4:00 PM EDT Telemedicine Cancer Center at [address] [place] [address] Ronald Mills MD 240 [facility] A1 [place] [address] documented as of this encounter Visit Diagnoses Not on filedocumented in this encounter Additional Health Concerns Infection Onset Date Last Indicated Resolved Time COVID-19 03/05/2022 03/05/2022 03/15/2022 7:18 PM EDT documented as of this encounter Care Teams Berry Grower Relationship Specialty Start Date End Date Caitlyn Bowie MD 3400 [facility] Max 1 [place] [address] PCP - General Internal Medicine 05/06/21 Henry Kelly MD Pulmonary Department 175 [facility], [address] [place] [address] Physician Pulmonary Disease 09/06/17 06/22/20 documented as of this encounter
--- OUTSIDE RECORDS SUMMARY | 2025-03-26 17:07 | XMS_ITS | Encounter Summary ---
Author Organization [facility] and [facility] Address [address] [place] [address] Care Team Providers Care Dye Room Helper Name Role Phone Caitlyn Bowie MD Primary Care Provider +1- [phone] Encounter Details Date Type Department Care Team (Late st Contact Info) Description 06/27/2019 Scanned Document Onco-Oncology Program at [address] [place] [address] Norma Renee MD [address] [place] [address] 2 [place] [address] Social History Tobacco Use Types [...] PM EDT Telemedicine Cancer Center at [address] [place], [place] [phone] Ronald Mills MD 240 [facility] A1 [place] [address] documented as of this encounter Visit Diagnoses Not on filedocumented in this encounter Additional Health Concerns Infection Onset Date Last Indicated Resolved Time COVID-19 03/05/2022 03/05/2022 03/15/2022 7:18 PM EDT Assessment Noted Time PHQ-9 Depression Total Score: 2 11/07/19 19 2:06 PM EDT documented as of this encounter Care Teams Dye Room Helper Relationship Specialty Start Date End Date Caitlyn Bowie MD 3400 [facility] 1 [place] [address] PCP - General Internal Medicine 05/06/21 Henry Kelly MD Pulmonary Department 175 [facility], [address] [place] [address] Physician Pulmonary Disease 09/06/17 06/22/20 documented as of this encounter
--- OUTSIDE RECORDS SUMMARY | 2025-03-26 17:07 | XMS_ITS | Encounter Summary ---
Author Organization [facility] Address [address] [place] [address] Phone Care Team Providers Care Electronics Technician Apprentice Name Role Phone Caitlyn Bowie MD Primary Care Provider +1- [phone] Encounter Details Date Type Department Care Team (Late Contact Info) Description 03/24/2025 Documentation Only [facility] [address] [place] [address] Marina Abdi 2150 [place] [address] Social History Tobacco Use Types [...] Visit [facility] [address] [place] [address] Rubén Ashraf MD [address] [place] [address] [place] [address] documented as of this encounter Visit Diagnoses Not on filedocumented in this encounter Care Teams Electronics Technician Apprentice Relationship Specialty Start Date End Date Caitlyn Bowie MD 3400 [place], [place] PCP - General Internal Medicine 09/24/24 documented as of this encounter
--- OUTSIDE RECORDS SUMMARY | 2025-03-26 17:07 | XMS_ITS | Encounter Summary ---
Author Organization [facility] Address [address] [place] [address] Care Team Providers Care Copra Processor Name Role Phone Caitlyn Bowie MD Primary Care Provider +1- [phone] Encounter Details Date Type Department Care Team (Late st Contact Info) Description 12/16/2016 Scanned Document [facility] Health Information Management [address] [place] [address] External, Provider Social History Tobacco Use Types [...] [facility] 240 [facility] Building [address] [place], [place] [id number] Ronald Mills MD 240 [facility] Max [address]1 [place] [address] documented as of this encounter [...] documented as of this encounter Care Teams Copra Processor Relationship Specialty Start Date End Date Caitlyn Bowie MD 3400 [facility] 1 [place] [address] PCP - General Internal Medicine 05/06/21 Henry Kelly MD Pulmonary Department 175 [facility], [address] [place] [address] Physician Pulmonary Disease 09/06/17 06/22/20 documented as of this encounter
--- OUTSIDE RECORDS SUMMARY | 2025-03-26 17:07 | XMS_ITS | Encounter Summary ---
Author Organization [facility] and [facility] Address [address] [place] [address] Care Team Providers Care Ramp Service Employee Name Role Phone Caitlyn Bowie MD Primary Care Provider +1- [phone] Encounter Details Date Type Department Care Team (Late st Contact Info) Description 04/27/2017 Scanned Document [facility] Health Information Management [address] [place] [address] External, Provider Social History Tobacco Use Types [...] [facility] 240 [facility] Building [address] [place], [place] [phone] Ronald Mills MD 240 [facility] A1 [place] [address] documented as of this encounter Visit Diagnoses Not on filedocumented in this encounter Additional Health Concerns Infection Onset Date Last Indicated Resolved Time COVID-19 03/05/2022 03/05/2022 03/15/2022 7:18 PM EDT documented as of this encounter Care Teams Ramp Service Employee Relationship Specialty Start Date End Date Caitlyn Bowie MD 3400 [facility] 1 [place] [address] PCP - General Internal Medicine 05/06/21 Henry Kelly MD Pulmonary Department 175 [facility], [address] [place] [address] Physician Pulmonary Disease 09/06/17 06/22/20 documented as of this encounter
--- OUTSIDE RECORDS SUMMARY | 2025-03-26 17:07 | XMS_ITS | Encounter Summary ---
Author Organization [facility] Address [address] [place] [address] Phone Care Team Providers Care Refrigerator Mover Name Role Phone Caitlyn Bowie MD Primary Care Provider +1- [phone] Encounter Details Date Type Department Care Team (Late Contact Info) Description 12/10/2024 Documentation Only [facility] [address] [place] [address] Marina Abdi 2[address] [place] [address] Social History Tobacco Use Types [...] [facility] [address] [place] [address] Rubén Ashraf MD [address] [place] [address] [place] [address] documented as of this encounter Visit Diagnoses Not on filedocumented in this encounter Care Teams Refrigerator Mover Relationship Specialty Start Date End Date Caityln Bowie MD 3400 [place], [place] PCP - General Internal Medicine 09/24/24 documented as of this encounter
--- OUTSIDE RECORDS SUMMARY | 2025-03-26 17:07 | XMS_ITS | Encounter Summary ---
Author Organization [facility] and [facility] Address [address] [place] [address] Care Team Providers Care Manager Part Name Role Phone Caitlyn Bowie MD Primary Care Provider +1- [phone] Encounter Details Date Type Department Care Team (Late st Contact Info) Description 11/29/2019 Scanned Document [facility] Health Information Management [address] [place] [address] External, Provider Social History Tobacco Use Types [...] Center at [facility] 240 [facility] Building [address] [place], [place] [phone] Ronald Mills MD [address] [place] [address] [address] [place] [address] documented as of this encounter [...] as of this encounter Care Teams Manager Part Relationship Specialty Start Date End Date Caitlyn Bowie MD 3400 [facility] 1 [place] [address] PCP - General Internal Medicine 05/06/21 Henry Kelly MD Pulmonary Department 175 [facility], [address] [place] [address] Physician Pulmonary Disease 09/06/17 06/22/20 documented as of this encounter
--- OUTSIDE RECORDS SUMMARY | 2025-03-26 17:07 | XMS_ITS | Encounter Summary ---
Author Organization [facility] Address [address] [place] [address] Care Team Providers Care Conservation Policy Analyst Name Role Phone Caitlyn Bowie MD Primary Care Provider +1- [phone] Encounter Details Date Type Department Care Team (Late st Contact Info) Description 12/16/2016 Scanned Document [facility] Health Information Management [address] [place] [address] External, Provider Social History Tobacco Use Types [...] [facility] 240 [facility] Building [address] [place], [place] [address] Ronald Mills MD 240 [facility] A1 [place] [address] documented as of this encounter Visit Diagnoses Not on filedocumented in this encounter Additional Health Concerns Infection Onset Date Last Indicated Resolved Time COVID-19 03/05/2022 03/05/2022 03/15/2022 7:18 PM EDT documented as of this encounter Care Teams Conservation Policy Analyst Relationship Specialty Start Date End Date Caitlyn Bowie MD 3400 [facility] 1 [place] [address] PCP - General Internal Medicine 05/06/21 Henry Kelly MD Pulmonary Department 175 [facility], [address] [place] [address] Physician Pulmonary Disease 09/06/17 06/22/20 documented as of this encounter
--- OUTSIDE RECORDS SUMMARY | 2025-03-26 17:07 | XMS_ITS | Encounter Summary ---
Author Organization [facility] and [facility] Address [address] [place] [address] Care Team Providers Care Tooth Inspector Name Role Phone Caitlyn Bowie MD Primary Care Provider +1- [phone] Encounter Details Date Type Department Care Team (Late st Contact Info) Description 02/21/2017 Scanned Document [facility] Health Information Management [address] [place] [address] External, Provider Social History Tobacco Use Types [...] [facility] 240 [facility] Building [address] [place], [place] [phone] Ronald Mills MD 240 [facility] Max A1 [place] [address] documented as of this encounter [...] documented as of this encounter Care Teams Tooth Inspector Relationship Specialty Start Date End Date Caitlyn Bowie MD 3400 [facility] Max 1 [place] [address] PCP - General Internal Medicine 05/06/21 Henry Kelly MD Pulmonary Department 175 [facility], [address] [place] [address] Physician Pulmonary Disease 09/06/17 06/22/20 documented as of this encounter
--- OUTSIDE RECORDS SUMMARY | 2025-03-26 17:07 | XMS_ITS | Encounter Summary ---
Author Organization [facility] Address [address] [place] [address] Phone Care Team Providers Care Travel Money Advisor Name Role Phone Caitlyn Bowie MD Primary Care Provider +1- [phone] Encounter Details Date Type Department Care Team (Late Contact Info) Description 12/10/2024 Documentation Only [facility] [address] [place] [address] Marina Abdi 2150 [place] [address] Social History Tobacco Use Types [...] Visit [facility] [address] [place] [address] Rubén Ashraf MD [address] [place] [address] [place] [address] documented as of this encounter Visit Diagnoses Not on filedocumented in this encounter Care Teams Travel Money Advisor Relationship Specialty Start Date End Date Caitlyn Bowie MD 3400 [place], [place] PCP - General Internal Medicine 09/24/24 documented as of this encounter
--- OUTSIDE RECORDS SUMMARY | 2025-03-26 17:07 | XMS_ITS | Encounter Summary ---
Author Organization [facility] and [facility] Address [address] [place] [address] Care Team Providers Care Website Designer Name Role Phone Caitlyn Bowie MD Primary Care Provider +1- [phone] Encounter Details Date Type Department Care Team (Late st Contact Info) Description 12/16/2016 Scanned Document [facility] Health Information Management [address] [place] [address] External, Provider Social History Tobacco Use Types [...] Center at [facility] 240 [facility] Building [address] [place], [place] [phone] Ronald Mills MD 240 [facility] A1 [place] [address] documented as of this encounter [...] documented as of this encounter Care Teams Website Designer Relationship Specialty Start Date End Date Caitlyn Bowie MD [facility] 1 [place] [address] PCP - General Internal Medicine 05/06/21 Henry Kelly MD Pulmonary Department 175 [facility], [address] [place] [address] Physician Pulmonary Disease 09/06/17 06/22/20 documented as of this encounter
--- OUTSIDE RECORDS SUMMARY | 2025-03-26 17:07 | XMS_ITS | Encounter Summary ---
Author Organization [facility] and [facility] Address [address] [place] [address] Care Team Providers Care Early Childhood Teacher Assistant Name Role Phone Caitlyn Bowie MD Primary Care Provider +1- [phone] Encounter Details Date Type Department Care Team (Late st Contact Info) Description 06/07/2017 Scanned Document [facility] Health Information Management [address] [place] [address] External, Provider Social History Tobacco Use Types [...] [facility] 240 [facility] Building [address] [place], [place] [phone] Ronald Mills MD [address] [place] [address] [address]1 [place] [address] documented as [...] as of this encounter Care Teams Early Childhood Teacher Assistant Relationship Specialty Start Date End Date Caitlyn Bowie MD 3400 [facility] 1 [place] [address] PCP - General Internal Medicine 05/06/21 Henry Kelly MD Pulmonary Department 175 [facility], [address] [place] [address] Physician Pulmonary Disease 09/06/17 06/22/20 documented as of this encounter
--- OUTSIDE RECORDS SUMMARY | 2025-03-26 17:07 | XMS_ITS | Encounter Summary ---
Author Organization [facility] Address [address] [place] [address] Care Team Providers Care Nuclear Criticality Safety Engineer Name Role Phone Caitlyn Bowie MD Primary Care Provider +1- [phone] Encounter Details Date Type Department Care Team (Late Contact Info) Description 09/09/2020 Scanned Document [facility] Health Information Management [address] [place] [address] External, Provider Social History Tobacco Use Types [...] [facility] 240 [facility] Building [address] [place], [place] [phone] Ronald Mills MD [address] [place] [address] [address]1 [place] [address] documented [...] as of this encounter Care Teams Nuclear Criticality Safety Engineer Relationship Specialty Start Date End Date Caitlyn Bowie MD [address] [address] PCP - General Internal Medicine 05/06/21 documented as of this encounter
--- OUTSIDE RECORDS SUMMARY | 2025-03-26 17:07 | XMS_ITS | Encounter Summary ---
Author Organization [facility] and [facility] Address [address] [place] [address] Care Team Providers Care Rigger Chief Name Role Phone Caitlyn Bowie MD Primary Care Provider +1- [phone] Encounter Details Date Type Department Care Team (Late st Contact Info) Description 04/22/2021 Scanned Document INTERFACE DEFAULT [address] [place] [address] System, Provider Not In Social History Tobacco [...] [facility] 240 [facility] Building [address] [place], [place] [address] Ronald Mills MD [address] [place] [address] [address] [place] [address] documented as of this encounter [...] documented as of this encounter Care Teams Rigger Chief Relationship Specialty Start Date End Date Caitlyn Bowie MD [facility] [address] [address] PCP - General Internal Medicine 05/06/21 documented as of this encounter
--- OUTSIDE RECORDS SUMMARY | 2025-03-26 17:07 | XMS_ITS | Encounter Summary ---
Author Organization [facility] and [facility] Address [address] [place] [address] Care Team Providers Care Floral Designer Name Role Phone Caitlyn Bowie MD Primary Care Provider +1- [phone] Encounter Details Date Type Department Care Team (Late st Contact Info) Description 04/21/2021 Scanned Document INTERFACE DEFAULT [address] [place] [address] System, Provider Not In Social History Tobacco [...] [facility] [address] [facility] Building [address] [place], [place] [phone] Ronald Mills MD [address] [place] [address] [address] [place] [address] documented as of this [...] documented as of this encounter Care Teams Floral Designer Relationship Specialty Start Date End Date Caitlyn Bowie MD [facility] [address] [address] PCP - General Internal Medicine 05/06/21 documented as of this encounter
--- OUTSIDE RECORDS SUMMARY | 2025-03-26 17:08 | XMS_ITS | Encounter Summary ---
Author Organization [facility] Address [address] [place] [address] Care Team Providers Care Director Corporate Name Role Phone Caitlyn Bowie MD Primary Care Provider +1- [phone] Encounter Details Date Type Department Care Team (Late st Contact Info) Description 01/13/2021 Scanned Document Cancer Center at [address] [address] Ronald Mills MD [address] [address] Social History Tobacco Use Types [...] PM EDT Telemedicine Cancer Center at [address] [place] [address] Ronald Mills MD [address] [address] documented as of this [...] of this encounter Care Teams Director Corporate Relationship Specialty Start Date End Date Caitlyn Bowie MD [address] [address] PCP - General Internal Medicine 05/06/21 documented as of this encounter
--- OUTSIDE RECORDS SUMMARY | 2025-03-26 17:08 | XMS_ITS | Encounter Summary ---
Author Organization [facility] Address [address] [place] [address] Care Team Providers Care Corporate Real Estate Manager Name Role Phone Caitlyn Bowie MD Primary Care Provider +1- [phone] Encounter Details Date Type Department Care Team (Late st Contact Info) Description 02/11/2021 Scanned Document INTERFACE DEFAULT [address] [place] [address] System, Provider Not In Social History Tobacco [...] [facility] 240 [facility] Building [address] [place], [place] [address] Ronald Mills MD [address] [place] [address] [address] [place] [address] documented as of this encounter [...] as of this encounter Care Teams Corporate Real Estate Manager Relationship Specialty Start Date End Date Caitlyn Bowie MD [address] [address] PCP - General Internal Medicine 05/06/21 documented as of this encounter
--- OUTSIDE RECORDS SUMMARY | 2025-03-26 17:08 | XMS_ITS | Encounter Summary ---
Author Organization [facility] Address [address] [place] [address] Care Team Providers Care Switchboard Wire Worker Helper Name Role Phone Caitlyn Bowie MD Primary Care Provider +1- [phone] Encounter Details Date Type Department Care Team (Late st Contact Info) Description 02/02/2018 Scanned Document [facility] Health Information Management [address] [place] [address] External, Provider Social History Tobacco Use Types [...] Cancer Center at [facility] 240 [facility] Building [address] [place], [place] [phone] Ronald Mills MD 240 [facility] A1 [place] [address] documented as of this encounter Visit Diagnoses Not on filedocumented in this encounter Additional Health Concerns Infection Onset Date Last Indicated Resolved Time COVID-19 03/05/2022 03/05/2022 03/15/2022 7:18 PM EDT documented as of this encounter Care Teams Switchboard Wire Worker Helper Relationship Specialty Start Date End Date Caitlyn Bowie MD 3400 [facility] 1 [place] [address] PCP - General Internal Medicine 05/06/21 Henry Kelly MD Pulmonary Department 175 [facility], [address] [place] [address] Physician Pulmonary Disease 09/06/17 06/22/20 documented as of this encounter
--- OUTSIDE RECORDS SUMMARY | 2025-03-26 17:08 | XMS_ITS | Encounter Summary ---
Author Organization [facility] Address [address] [place] [address] Care Team Providers Care Photoengraving Finisher Name Role Phone Caitlyn Bowie MD Primary Care Provider +1- [phone] Encounter Details Date Type Department Care Team (Late st Contact Info) Description 02/03/2021 Scanned Document INTERFACE DEFAULT [address] [place] [address] System, Provider Not In Social History Tobacco [...] [facility] 240 [facility] Building [address] [place], [place] [phone] Ronald Mills MD [address] [place] [address] [address] [place] [address] documented as of this encounter [...] documented as of this encounter Care Teams Photoengraving Finisher Relationship Specialty Start Date End Date Caitlyn Bowie MD [address] [address] PCP - General Internal Medicine 05/06/21 documented as of this encounter
--- OUTSIDE RECORDS SUMMARY | 2025-03-26 17:08 | XMS_ITS | Encounter Summary ---
Author Organization [facility] Address [address] [place] [address] Care Team Providers Care Press Set Up Person Name Role Phone Caitlyn Bowie MD Primary Care Provider +1- [phone] Encounter Details Date Type Department Care Team (Late st Contact Info) Description 04/11/2021 Scanned Document [facility] Health Information Management [address] [place] [address] External, Provider Social History Tobacco Use Types [...] [facility] 240 [facility] Building [address] [place], [place] [address] Ronald Mills MD [address] [place] [address] [address] [place] [address] documented as of this encounter Visit Diagnoses Not on filedocumented in this encounter Additional Health Concerns Infection Onset Date Last Indicated Resolved Time COVID-19 03/05/2022 03/05/2022 03/15/2022 7:18 PM EDT Assessment Noted Time PHQ-9 Depression Total Score: 2 11/07/19 19 2:06 PM EDT documented as of this encounter Care Teams Press Set Up Person Relationship Specialty Start Date End Date Caitlyn Bowie MD [address] [address] PCP - General Internal Medicine 05/06/21 documented as of this encounter
--- OUTSIDE RECORDS SUMMARY | 2025-03-26 17:08 | XMS_ITS | Encounter Summary ---
Author Organization [facility] Address [address] [place] [address] Care Team Providers Care Advertising Sales Associate Name Role Phone Caitlyn Bowie MD Primary Care Provider +1- [phone] Encounter Details Date Type Department Care Team (Late st Contact Info) Description 04/10/2021 Scanned Document INTERFACE DEFAULT [address] [place] [address] System, Provider Not In Social History Tobacco [...] [facility] Center at [facility] 240 [facility] [address] [place] [address] Ronald Mills MD [address] [place] [address] [address] [place] [address] documented as of this encounter [...] as of this encounter Care Teams Advertising Sales Associate Relationship Specialty Start Date End Date Caitlyn Bowie MD [address] [address] PCP - General Internal Medicine 05/06/21 documented as of this encounter
--- OUTSIDE RECORDS SUMMARY | 2025-03-26 17:08 | XMS_ITS | Encounter Summary ---
Author Organization [facility] Address [address] [place] [address] Care Team Providers Care Irs Agent Name Role Phone Caitlyn Bowie MD Primary Care Provider +1- [phone] Encounter Details Date Type Department Care Team (Late st Contact Info) Description 02/02/2021 Scanned Document INTERFACE DEFAULT [address] [place] [address] System, Provider Not In Social History Tobacco [...] [facility] 240 [facility] [address] [place] [address] Ronald Mills MD [address] [place] [address] [address] [place] [address] documented as of this encounter [...] documented as of this encounter Care Teams Irs Agent Relationship Specialty Start Date End Date Caitlyn Bowie MD [facility] [address] [address] PCP - General Internal Medicine 05/06/21 documented as of this encounter
--- OUTSIDE RECORDS SUMMARY | 2025-03-26 17:08 | XMS_ITS | Encounter Summary ---
Author Organization [facility] Address [address] [place] [address] Care Team Providers Care Hammer Repairer Name Role Phone Caitlyn Bowie MD Primary Care Provider +1- [phone] Encounter Details Date Type Department Care Team (Late st Contact Info) Description 10/07/2013 Scanned Document Thoracic Oncology Program at [address] [address] Suzy Kong MD [address] [place] [address] Social History Tobacco Use Types Packs/Day [...] Center at [facility] 240 [facility] Building [address] [place], [place] [address] Ronald Mills MD 240 [facility] [address]1 [place] [address] documented as of this encounter Visit Diagnoses Not on filedocumented in this encounter Additional Health Concerns Infection Onset Date Last Indicated Resolved Time COVID-19 03/05/2022 03/05/2022 03/15/2022 7:18 PM EDT documented as of this encounter Care Teams Hammer Repairer Relationship Specialty Start Date End Date Caitlyn Bowie MD 3400 [facility] Max 1 [place] [address] PCP - General Internal Medicine 05/06/21 Henry Kelly MD Pulmonary Department 175 [place] [facility], [address] [place] [address] Physician Pulmonary Disease 09/06/17 06/22/20 documented as of this encounter
--- OUTSIDE RECORDS SUMMARY | 2025-03-26 17:08 | XMS_ITS | Encounter Summary ---
Author Organization [facility] Address [address] [place] [address] Care Team Providers Care Music Department Chair Name Role Phone Caitlyn Bowie MD Primary Care Provider +1- [phone] Encounter Details Date Type Department Care Team (Late st Contact Info) Description 04/12/2021 Scanned Document INTERFACE DEFAULT [address] [place] [address] System, Provider Not In Social History Tobacco [...] [facility] Building [address] [place], [place] [address] Ronald Mills MD [address] [place] [address] [address] [place] [address] documented as of this encounter [...] as of this encounter Care Teams Music Department Chair Relationship Specialty Start Date End Date Caitlyn Bowie MD [address] [address] PCP - General Internal Medicine 05/06/21 documented as of this encounter
--- OUTSIDE RECORDS SUMMARY | 2025-03-26 17:08 | XMS_ITS | Encounter Summary ---
Author Organization [facility] Address [address] [place] [address] Care Team Providers Care Burnt Lime Drawer Name Role Phone Caitlyn Bowie MD Primary Care Provider +1- [phone] Encounter Details Date Type Department Care Team (Late st Contact Info) Description 08/23/2017 Scanned Document [facility] Health Information Management [address] [place] [address] External, Provider Social History Tobacco Use Types [...] at [facility] 240 [facility] Building [address] [place], [place] [address] Ronald Mills MD [address] [place] [address] [address] [place] [address] documented as of [...] documented as of this encounter Care Teams Burnt Lime Drawer Relationship Specialty Start Date End Date Caitlyn Bowie MD 3400 [facility] 1 [place] [address] PCP - General Internal Medicine 05/06/21 Henry Kelly MD Pulmonary Department 175 [facility], [address] [place] [address] Physician Pulmonary Disease 09/06/17 06/22/20 documented as of this encounter
--- OUTSIDE RECORDS SUMMARY | 2025-03-26 17:08 | XMS_ITS | Encounter Summary ---
Author Organization [facility] Address [address] [place] [address] Phone Care Team Providers Care Back Pad Inspector Name Role Phone Caitlyn Bowie MD Primary Care Provider +1- [phone] Encounter Details Date Type Department Care Team (Late Contact Info) Description 12/12/2024 Documentation Only [facility] [address] [place] [address] Marina Abdi [address] [place] [address] Social History Tobacco Use Types [...] [facility] [address] [place] [address] Rubén Ashraf MD [address] [place] [address] [place] [address] documented as of this encounter Visit Diagnoses Not on filedocumented in this encounter Care Teams Back Pad Inspector Relationship Specialty Start Date End Date Caitlyn Bowie MD 3400 [place], [place] PCP - General Internal Medicine 09/24/24 documented as of this encounter
--- OUTSIDE RECORDS SUMMARY | 2025-03-26 17:08 | XMS_ITS | Encounter Summary ---
Author Organization [facility] Address [address] [place] [address] Care Team Providers Care Sheep Killer Name Role Phone Caitlyn Bowie MD Primary Care Provider +1- [phone] Encounter Details Date Type Department Care Team (Late st Contact Info) Description 03/14/2025 Scanned Document [facility] Neurology Ophthalmology [address] [place] [address] Shirley Chaidez PA-C [address] [address] Social History Tobacco Use Types Packs/Day Years [...] on filedocumented in this encounter Care Teams Sheep Killer Relationship Specialty Start Date End Date Caitlyn Bowie MD 3950 [place] [address] PCP - General Internal Medicine 03/20/23 documented as of this encounter
--- OUTSIDE RECORDS SUMMARY | 2025-03-26 17:08 | XMS_ITS | Encounter Summary ---
Author Organization [facility] Address [address] [place] [address] Care Team Providers Care Corrections Sergeant Name Role Phone Caitlyn Bowie MD Primary Care Provider +1- [phone] Encounter Details Date Type Department Care Team (Late st Contact Info) Description 07/31/2015 Scanned Document [facility] Health Information Management [address] [place] [address] External, Provider Social History Tobacco Use Types [...] [facility] 240 [facility] Building [address] [place], [place] [phone] Ronald Mills MD 240 [facility] Max [address] [place] [address] documented as of this encounter Procedures Procedure Name Priority Date/Time Associated Diagnosis Comments NUC MED/PET RESULT SCAN Routine 07/31/2015 documented in this encounter Results * Nuc Med/PET Result Scan (07/31/2015) us Provider External IMG SCAN REPORTS Edited Result - Final [facility] [place], [place], [facility] documented in this encounter Visit Diagnoses Not on filedocumented in this encounter Additional Health Concerns Infection Onset Date Last Indicated Resolved Time COVID-19 03/05/2022 03/05/2022 03/15/2022 7:1 8 PM EDT documented as of this encounter Care Teams Corrections Sergeant Relationship Specialty Start Date End Date Caitlyn Bowie MD 3400 [facility] 1 [place] [address] PCP - General Internal Medicine 05/06/21 Henry Kelly MD Pulmonary Department 175 [facility], [address] [place] [address] Physician Pulmonary Disease 09/06/17 06/22/20 documented as of this encounter
--- OUTSIDE RECORDS SUMMARY | 2025-03-26 17:08 | XMS_ITS | Encounter Summary ---
Author Organization [facility] Address [address] [place] [address] Care Team Providers Care Warehouse Guard Name Role Phone Caitlyn Bowie MD Primary Care Provider +1- [phone] Encounter Details Date Type Department Care Team (Late st Contact Info) Description 06/25/2015 Scanned Document [facility] Health Information Management [address] [place] [address] External, Provider Social History Tobacco Use Types [...] Health – [facility] 240 [facility] Building [address] [place], [place] [address] Ronald Mills MD 240 [facility] A1 [place] [address] documented as of this encounter Visit Diagnoses Not on filedocumented in this encounter Additional Health Concerns Infection Onset Date Last Indicated Resolved Time COVID-19 03/05/2022 03/05/2022 03/15/2022 7:18 PM EDT documented as of this encounter Care Teams Warehouse Guard Relationship Specialty Start Date End Date Caitlyn Bowie MD [address] [facility] 1 [place] [address] PCP - General Internal Medicine 05/06/21 Henry Kelly MD Pulmonary Department 175 [facility], [address] [place] [address] Physician Pulmonary Disease 09/06/17 06/22/20 documented as of this encounter
--- OUTSIDE RECORDS SUMMARY | 2025-03-26 17:08 | XMS_ITS | Encounter Summary ---
Author Organization [facility] Address [address] [place] [address] Care Team Providers Care Harvester Operator Name Role Phone Caitlyn Bowie MD Primary Care Provider +1- [phone] Encounter Details Date Type Department Care Team (Late st Contact Info) Description 05/14/2015 Scanned Document [facility] Health Information Management [address] [place] [address] External, Provider Social History Tobacco Use Types [...] Cancer Center at [facility] 240 [facility] Building [address] [place], [place] [address] Ronald Mills MD 240 [facility] A1 [place] [address] documented as of this encounter Visit Diagnoses Not on filedocumented in this encounter Additional Health Concerns Infection Onset Date Last Indicated Resolved Time COVID-19 03/05/2022 03/05/2022 03/15/2022 7:18 PM EDT documented as of this encounter Care Teams Harvester Operator Relationship Specialty Start Date End Date Caitlyn Bowie MD 3400 [facility] 1 [place] [address] PCP - General Internal Medicine 05/06/21 Henry Kelly MD Pulmonary Department 175 [facility], [address] [place] [address] Physician Pulmonary Disease 09/06/17 06/22/20 documented as of this encounter
--- OUTSIDE RECORDS SUMMARY | 2025-03-26 17:08 | XMS_ITS | Encounter Summary ---
Author Organization [facility] Address [address] [place] [address] Care Team Providers Care Resilient Tile Installer Name Role Phone Caitlyn Bowie MD Primary Care Provider +1- [phone] Encounter Details Date Type Department Care Team (Late st Contact Info) Description 02/08/2021 Scanned Document INTERFACE DEFAULT [address] [place] [address] System, Provider Not In Social History Tobacco [...] Health – [facility] 240 [facility] Building [address] [place] [address] Ronald Mills MD [address] [place] [address] [address]1 [place] [address] documented as of this encounter Visit Diagnoses Not on filedocumented in this encounter Additional Health Concerns Infection Onset Date Last Indicated Resolved Time COVID-19 03/05/2022 03/05/2022 03/15/2022 7:18 PM EDT Assessment Noted Time PHQ-9 Depression Total Score: 2 11/07/19 19 2:06 PM EDT documented as of this encounter Care Teams Resilient Tile Installer Relationship Specialty Start Date End Date Caitlyn Bowie MD [address] [address] PCP - General Internal Medicine 05/06/21 documented as of this encounter
--- OUTSIDE RECORDS SUMMARY | 2025-03-26 17:08 | XMS_ITS | Encounter Summary ---
Author Organization [facility] Address [address] [place] [address] Care Team Providers Care Kiln Door Builder Name Role Phone Caitlyn Bowie MD Primary Care Provider +1- [phone] Encounter Details Date Type Department Care Team (Late st Contact Info) Description 11/09/2020 Scanned Document INTERFACE DEFAULT [address] [place] [address] System, Provider Not In Social History Tobacco [...] Cancer Center at [facility] 240 [facility] Building [address] [place] [address] Ronald Mills MD [address] [place] [address] [address] [place] [address] documented as of this encounter Visit Diagnoses Not on filedocumented in this encounter Additional Health Concerns Infection Onset Date Last Indicated Resolved Time COVID-19 03/05/2022 03/05/2022 03/15/2022 7:18 PM EDT Assessment Noted Time PHQ-9 Depression Total Score: 2 11/07/19 19 2:06 PM EDT documented as of this encounter Care Teams Kiln Door Builder Relationship Specialty Start Date End Date Caitlyn Bowie MD [address] [address] PCP - General Internal Medicine 05/06/21 documented as of this encounter
--- OUTSIDE RECORDS SUMMARY | 2025-03-26 17:08 | XMS_ITS | Encounter Summary ---
Author Organization [facility] Address [address] [place] [address] Care Team Providers Care Certified Ophthalmic Medical Technician Name Role Phone Caitlyn Bowie MD Primary Care Provider +1- [phone] Encounter Details Date Type Department Care Team ([facility] st Contact Info) Description 08/26/2014 Documentation [facility] [address] [place] [address] Shilpi Ibarra [address] [place] [address] Social History Tobacco Use Types Packs/Day Years [...] from the original note were not included. [facility] Progress Note This is a 69 y.o. female who was provided services by [facility]. Service Provided By:: Shilpi Ibarra Patient Status: return Length of Appointment: 60 minutes documented in this encounter Plan of Treatment Upcoming Encounters Date Type Department Care Team ([facility] st Contact Info) Description 04/25/2025 4:00 PM EDT Telemedicine Cancer Center at [facility] 240 [facility] Building [address] [place] [address] Ronald Mills MD 240 [facility] Max [address] [place] [address] documented as of this encounter Visit Diagnoses Not on filedocumented in this encounter Additional Health Concerns Infection Onset Date Last Indicated Resolved Time COVID-19 03/05/2022 03/05/2022 03/15/2022 7:18 PM EDT documented as of this encounter Care Teams Certified Ophthalmic Medical Technician Relationship Specialty Start Date End Date Caitlyn Bowie MD 3400 [facility] 1 [place] [address] PCP - General Internal Medicine 05/06/21 Henry Kelly MD Pulmonary Department 175 [facility], [address] [place] [address] Physician Pulmonary Disease 09/06/17 06/22/20 documented as of this encounter
--- OUTSIDE RECORDS SUMMARY | 2025-03-26 17:08 | XMS_ITS | Encounter Summary ---
Author Organization [facility] Address [address] [place] [address] Care Team Providers Care Manager Transportation Name Role Phone Caitlyn Bowie MD Primary Care Provider +1- [phone] Encounter Details Date Type Department Care Team (Late st Contact Info) Description 02/25/2021 Scanned Document INTERFACE DEFAULT [address] [place] [address] System, Provider Not In Social History Tobacco [...] Cancer Center at [facility] 240 [facility] Building [address] [place] [address] Ronald Mills MD [address] [place] [address] [address] [place] [address] documented as of this encounter [...] as of this encounter Care Teams Manager Transportation Relationship Specialty Start Date End Date Caitlyn Bowie MD [address] [address] PCP - General Internal Medicine 05/06/21 documented as of this encounter
--- OUTSIDE RECORDS SUMMARY | 2025-03-26 17:08 | XMS_ITS | Encounter Summary ---
Author Organization [facility] Address [address] [place] [address] Care Team Providers Care Separations Scientist Name Role Phone Caitlyn Bowie MD Primary Care Provider +1- [phone] Encounter Details Date Type Department Care Team (Late st Contact Info) Description 02/15/2021 Scanned Document INTERFACE DEFAULT [address] [place] [address] System, Provider Not In Social History Tobacco [...] [facility] Building [address] [place] [address] Ronald Mills MD [address] [place] [address] [address] [place] [address] documented as of this encounter Visit Diagnoses Not on filedocumented in this encounter Additional Health Concerns Infection Onset Date Last Indicated Resolved Time COVID-19 03/05/2022 03/05/2022 03/15/2022 7:18 PM EDT Assessment Noted Time PHQ-9 Depression Total Score: 2 11/07/19 19 2:06 PM EDT documented as of this encounter Care Teams Separations Scientist Relationship Specialty Start Date End Date Caitlyn Bowie MD [address] [address] PCP - General Internal Medicine 05/06/21 documented as of this encounter
--- OUTSIDE RECORDS SUMMARY | 2025-03-26 17:08 | XMS_ITS | Encounter Summary ---
Author Organization [facility] and [facility] Address [address] [place] [address] Care Team Providers Care Business Intelligence Etl Developer Name Role Phone Caitlyn Bowie MD Primary Care Provider +1- [phone] Encounter Details Date Type Department Care Team (Late st Contact Info) Description 04/28/2015 Scanned Document [facility] Health Information Management [address] [place] [address] External, Provider Social History Tobacco Use Types [...] [facility] 240 [facility] Building [address] [place], [place] [id number] Ronald Mills MD 240 [facility] A1 [place] [address] documented as of this encounter Visit Diagnoses Not on filedocumented in this encounter Additional Health Concerns Infection Onset Date Last Indicated Resolved Time COVID-19 03/05/2022 03/05/2022 03/15/2022 7:18 PM EDT documented as of this encounter Care Teams Business Intelligence Etl Developer Relationship Specialty Start Date End Date Caitlyn Bowie MD 3400 [facility] 1 [place] [address] PCP - General Internal Medicine 05/06/21 Henry Kelly MD Pulmonary Department 175 [facility], [address] [place] [address] Physician Pulmonary Disease 09/06/17 06/22/20 documented as of this encounter
--- OUTSIDE RECORDS SUMMARY | 2025-03-26 17:08 | XMS_ITS | Encounter Summary ---
Author Organization [facility] Address [address] [place] [address] Phone Care Team Providers Care Middle School Football Coach Name Role Phone Caitlyn Bowie MD Primary Care Provider +1- [phone] Encounter Details Date Type Department Care Team (Late Contact Info) Description 12/12/2024 Documentation Only [facility] [address] [place] [address] Marina Abdi [address] [place] [address] Social History Tobacco Use Types [...] Visit [facility] [address] [place] [address] Rubén Ashraf MD [address] [place] [address] [place] [address] documented as of this encounter Visit Diagnoses Not on filedocumented in this encounter Care Teams Middle School Football Coach Relationship Specialty Start Date End Date Caitlyn Bowie MD [address] [place], [place] PCP - General Internal Medicine 09/24/24 documented as of this encounter
--- OUTSIDE RECORDS SUMMARY | 2025-03-26 17:08 | XMS_ITS | Encounter Summary ---
Author Organization [facility] Address [address] [place] [address] Care Team Providers Care Catering Assistant Name Role Phone Caitlyn Bowie MD Primary Care Provider +1- [phone] Encounter Details Date Type Department Care Team (Late st Contact Info) Description 03/22/2021 Scanned Document INTERFACE DEFAULT [address] [place] [address] System, Provider Not In Social History Tobacco [...] [facility] 240 [facility] Building [address] [place] [address] Ronald Mills MD [address] [place] [address] [address] [place] [address] documented as of this encounter Visit Diagnoses Not on filedocumented in this encounter Additional Health Concerns Infection Onset Date Last Indicated Resolved Time COVID-19 03/05/2022 03/05/2022 03/15/2022 7:18 PM EDT Assessment Noted Time PHQ-9 Depression Total Score: 2 11/07/19 19 2:06 PM EDT documented as of this encounter Care Teams Catering Assistant Relationship Specialty Start Date End Date Caitlyn Bowie MD [address] [address] PCP - General Internal Medicine 05/06/21 documented as of this encounter
--- OUTSIDE RECORDS SUMMARY | 2025-03-26 17:08 | XMS_ITS | Encounter Summary ---
Author Organization [facility] Address [address] [place] [address] Care Team Providers Care Respiratory Supervisor Name Role Phone Caitlyn Bowie MD Primary Care Provider +1- [phone] Encounter Details Date Type Department Care Team (Late st Contact Info) Description 03/08/2021 Scanned Document INTERFACE DEFAULT [address] [place] [address] System, Provider Not In Social History Tobacco [...] [facility] 240 [facility] Building [address] [place], [place] [address] Ronald Mills MD [address] [place] [address] [address] [place] [address] documented as of this encounter [...] as of this encounter Care Teams Respiratory Supervisor Relationship Specialty Start Date End Date Caitlyn Bowie MD [facility] [address] [address] PCP - General Internal Medicine 05/06/21 documented as of this encounter
--- OUTSIDE RECORDS SUMMARY | 2025-03-26 17:08 | XMS_ITS | Encounter Summary ---
Author Organization [facility] Address [address] [place] [address] Care Team Providers Care Firefighter Marine Name Role Phone Caitlyn Bowie MD Primary Care Provider +1- [phone] Encounter Details Date Type Department Care Team (Late st Contact Info) Description 02/07/2021 Scanned Document INTERFACE DEFAULT [address] [place] [address] System, Provider Not In Social History Tobacco [...] [facility] 240 [facility] Building [address] [place], [place] [address] Ronald Mills MD [address] [place] [address] [address] [place] [address] documented as of this encounter [...] documented as of this encounter Care Teams Firefighter Marine Relationship Specialty Start Date End Date Caitlyn Bowie MD [address] [address] PCP - General Internal Medicine 05/06/21 documented as of this encounter
--- OUTSIDE RECORDS SUMMARY | 2025-03-26 17:08 | XMS_ITS | Encounter Summary ---
Author Organization [facility] and [facility] Address [address] [place] [address] Care Team Providers Care Medication Aide Name Role Phone Caitlyn Bowie MD Primary Care Provider +1- [phone] Encounter Details Date Type Department Care Team (Late st Contact Info) Description 01/26/2018 Scanned Document [facility] Health Information Management [address] [place] [address] External, Provider Social History Tobacco Use Types [...] [facility] 240 [facility] Building [address] [place], [place] [address] Ronald Mills MD [address] [place] [address] [address] [place] [address] documented as of this encounter [...] as of this encounter Care Teams Medication Aide Relationship Specialty Start Date End Date Caitlyn Bowie MD 3400 [facility] 1 [place] [address] PCP - General Internal Medicine 05/06/21 Henry Kelly MD Pulmonary Department 175 [facility], [address] [place] [address] Physician Pulmonary Disease 09/06/17 06/22/20 documented as of this encounter
--- OUTSIDE RECORDS SUMMARY | 2025-03-26 17:08 | XMS_ITS | Encounter Summary ---
Author Organization [facility] Address [address] [place] [place] [address] Care Team Providers Care Public Health Nurse Name Role Phone Caitlyn Bowie MD Primary Care Provider +1- [phone] Encounter Details Date Type Department Care Team (Late st Contact Info) Description 02/24/2021 Scanned Document INTERFACE DEFAULT [address] [place] [address] System, Provider Not In Social History Tobacco [...] [facility] 240 [facility] Building [address] [place] [address] Ronald Mills MD [address] [place] [address] [address] [place] [address] documented as of this encounter [...] of this encounter Care Teams Public Health Nurse Relationship Specialty Start Date End Date Caitlyn Bowie MD [address] [address] PCP - General Internal Medicine 05/06/21 documented as of this encounter
--- OUTSIDE RECORDS SUMMARY | 2025-03-26 17:08 | XMS_ITS | Encounter Summary ---
Author Organization [facility] Address [address] [place] [address] Care Team Providers Care Chair Inspector And Leveler Name Role Phone Caitlyn Bowie MD Primary Care Provider +1- [phone] Encounter Details Date Type Department Care Team (Late st Contact Info) Description 11/07/2014 Scanned Document [facility] Health Information Management [address] [place] [address] External, Provider Social History Tobacco Use Types [...] [facility] [address] [facility] Building [address] [place], [place] [address] Ronald Mills MD 240 [facility] A1 [place] [address] documented as of this encounter Visit Diagnoses Not on filedocumented in this encounter Additional Health Concerns Infection Onset Date Last Indicated Resolved Time COVID-19 03/05/2022 03/05/2022 03/15/2022 7:18 PM EDT documented as of this encounter Care Teams Chair Inspector And Leveler Relationship Specialty Start Date End Date Caitlyn Bowie MD 3400 [facility] 1 [place] [address] PCP - General Internal Medicine 05/06/21 Henry Kelly MD Pulmonary Department 175 [facility], [address] [place] [address] Physician Pulmonary Disease 09/06/17 06/22/20 documented as of this encounter
--- OUTSIDE RECORDS SUMMARY | 2025-03-26 17:08 | XMS_ITS | Encounter Summary ---
Author Organization [facility] Address [address] [place] [address] Care Team Providers Care Well Cleaner Name Role Phone Caitlyn Bowie MD Primary Care Provider +1- [phone] Encounter Details Date Type Department Care Team (Late st Contact Info) Description 02/28/2021 Scanned Document INTERFACE DEFAULT [address] [place] [address] System, Provider Not In Social History Tobacco [...] [facility] Building [address] [place] [address] Ronald Mills MD [address] [place] [address] [address] [place] [address] documented as of this encounter [...] as of this encounter Care Teams Well Cleaner Relationship Specialty Start Date End Date Caitlyn Bowie MD [address] [address] PCP - General Internal Medicine 05/06/21 documented as of this encounter
--- OUTSIDE RECORDS SUMMARY | 2025-03-26 17:08 | XMS_ITS | Encounter Summary ---
Author Organization [facility] Address [address] [place] [address] Care Team Providers Care Hide Buyer Name Role Phone Caitlyn Bowie MD Primary Care Provider +1- [phone] Encounter Details Date Type Department Care Team (Late Contact Info) Description 01/27/2021 Scanned Document [facility] [address] [address] External, Provider Social History Tobacco Use Types [...] [facility] Building [address] [place], [place] [address] Ronald Mills MD [address] [place] [address] [address] [place] [address] documented as of this encounter [...] as of this encounter Care Teams Hide Buyer Relationship Specialty Start Date End Date Caitlyn Bowie MD [address] [address] PCP - General Internal Medicine 05/06/21 documented as of this encounter
--- OUTSIDE RECORDS SUMMARY | 2025-03-26 17:08 | XMS_ITS | Encounter Summary ---
Author Organization [facility] and [facility] Address [address] [place] [address] Care Team Providers Care Paint Sprayer Sandblaster Name Role Phone Caitlyn Bowie MD Primary Care Provider +1- [phone] Encounter Details Date Type Department Care Team (Late st Contact Info) Description 03/24/2021 Scanned Document INTERFACE DEFAULT [address] [place] [address] System, Provider Not In Social History Tobacco [...] [facility] 240 [facility] Building [address] [place] [address] Ronald Mills MD [address] [place] [address] [address] [place] [address] documented as of this encounter Visit Diagnoses Not on filedocumented in this encounter Additional Health Concerns Infection Onset Date Last Indicated Resolved Time COVID-19 03/05/2022 03/05/2022 03/15/2022 7:18 PM EDT Assessment Noted Time PHQ-9 Depression Total Score: 2 11/07/19 19 2:06 PM EDT documented as of this encounter Care Teams Paint Sprayer Sandblaster Relationship Specialty Start Date End Date Caitlyn Bowie MD [address] [address] PCP - General Internal Medicine 05/06/21 documented as of this encounter
--- OUTSIDE RECORDS SUMMARY | 2025-03-26 17:08 | XMS_ITS | Encounter Summary ---
Author Organization [facility] and [facility] Address [address] [place] [address] Care Team Providers Care Sales Department Clerk Name Role Phone Caitlyn Bowie MD Primary Care Provider +1- [phone] Encounter Details Date Type Department Care Team (Late st Contact Info) Description 03/14/2021 Scanned Document INTERFACE DEFAULT [address] [place] [address] System, Provider Not In Social History [...] [facility] 240 [facility] Building [address] [place], [place] [address] Ronald Mills MD [address] [place] [address] [address] [place] [address] documented as of this encounter [...] as of this encounter Care Teams Sales Department Clerk Relationship Specialty Start Date End Date Caitlyn Bowie MD [address] [address] PCP - General Internal Medicine 05/06/21 documented as of this encounter
--- OUTSIDE RECORDS SUMMARY | 2025-03-26 17:08 | XMS_ITS | Encounter Summary ---
Author Organization [facility] Address [address] [place] [address] Care Team Providers Care Field Staff Name Role Phone Caitlyn Bowie MD Primary Care Provider +1- [phone] Encounter Details Date Type Department Care Team (Late st Contact Info) Description 03/23/2021 Scanned Document INTERFACE DEFAULT [address] [place] [address] System, Provider Not In Social History Tobacco [...] [facility] 240 [facility] Building [address] [place] [address] Ronald Mills MD [address] [place] [address] [address] [place] [address] documented as of this encounter [...] as of this encounter Care Teams Field Staff Relationship Specialty Start Date End Date Caitlyn Bowie MD [address] [address] PCP - General Internal Medicine 05/06/21 documented as of this encounter
--- OUTSIDE RECORDS SUMMARY | 2025-03-26 17:08 | XMS_ITS | Encounter Summary ---
Author Organization [facility] and [facility] Address 20 [place] [address] Care Team Providers Care Equipment Operation Instructor Name Role Phone Caitlyn Bowie MD Primary Care Provider +1- [phone] Encounter Details Date Type Department Care Team (Late st Contact Info) Description 10/16/2013 Scanned Document [facility] [address] [place] [address], 2nd floor [facility], [address] [place], [place] [address] Suzy Kong MD [address] [place] [address] Social History Tobacco Use Types Packs/Day [...] PM EDT Telemedicine [facility] at [address] [place] [address] Ronald Mills MD 240 [facility] A1 [place] [address] documented as of this encounter Visit Diagnoses Not on filedocumented in this encounter Additional Health Concerns Infection Onset Date Last Indicated Resolved Time COVID-19 03/05/2022 03/05/2022 03/15/2022 7:18 PM EDT documented as of this encounter Care Teams Equipment Operation Instructor Relationship Specialty Start Date End Date Caitlyn Bowie MD 3400 [facility] Max 1 [place] [address] PCP - General Internal Medicine 05/06/21 Henry Kelly MD Pulmonary Department 175 [facility], [address] [place] [address] Physician Pulmonary Disease 09/06/17 06/22/20 documented as of this encounter
--- OUTSIDE RECORDS SUMMARY | 2025-03-26 17:08 | XMS_ITS | Encounter Summary ---
Author Organization [facility] Address [address] [place] [address] Care Team Providers Care Cinder Block Mason Name Role Phone Caitlyn Bowie MD Primary Care Provider +1- [phone] Encounter Details Date Type Department Care Team (Late st Contact Info) Description 01/07/2014 Documentation [facility] [address] [place] [address] Shilpi Ibarra [address] [place] [address] Social History Tobacco Use Types Packs/Day Years [...] [facility] Building [address] [place], [place] [address] Ronald Mills MD [address] [place] [address] documented as of this encounter Visit Diagnoses Not on filedocumented in this encounter Additional Health Concerns Infection Onset Date Last Indicated Resolved Time COVID-19 03/05/2022 03/05/2022 03/15/2022 7:18 PM EDT documented as of this encounter Care Teams Cinder Block Mason Relationship Specialty Start Date End Date Caitlyn Bowie MD [address] [place] [address] PCP - General Internal Medicine 05/06/21 Henry Kelly MD Pulmonary Department 175 [facility], [address] [place] [address] Physician Pulmonary Disease 09/06/17 06/22/20 documented as of this encounter
--- OUTSIDE RECORDS SUMMARY | 2025-03-26 17:08 | XMS_ITS | Encounter Summary ---
Author Organization [facility] and [facility] Address [address] [place] [address] Care Team Providers Care Ladies Underwear Operator Name Role Phone Caitlyn Bowie MD Primary Care Provider +1- [phone] Encounter Details Date Type Department Care Team (Late st Contact Info) Description 04/02/2021 Scanned Document INTERFACE DEFAULT [address] [place] [address] System, Provider Not In Social History Tobacco [...] [facility] 240 [facility] Building [address] [place], [place] [address] Ronald Mills MD [address] [place] [address] [address] [place] [address] documented as of this encounter [...] documented as of this encounter Care Teams Ladies Underwear Operator Relationship Specialty Start Date End Date Caitlyn Bowie MD [address] [address] PCP - General Internal Medicine 05/06/21 documented as of this encounter
--- OUTSIDE RECORDS SUMMARY | 2025-03-26 17:08 | XMS_ITS | Encounter Summary ---
Author Organization [facility] and [facility] Address [address] [place] [address] Care Team Providers Care Chiropractic Doctor Name Role Phone Caitlyn Bowie MD Primary Care Provider +1- [phone] Encounter Details Date Type Department Care Team (Late st Contact Info) Description 04/28/2015 Scanned Document [facility] Health Information Management [address] [place] [address] External, Provider Social History Tobacco Use Types [...] [facility] 240 [facility] Building [address] [place], [place] [address] Ronald Mills MD 240 [facility] [address] [place] [address] documented as of this encounter Procedures Procedure Name Priority Date/Time Associated Diagnosis Comments LAB SCAN Routine 04/28/2015 documented in this encounter Results * Lab Scan (04/28/2015) Blood specimen (specimen) us Provider External LAB BLOOD ORDERABLES Edited Re sult - Final [facility] documented in this encounter Visit Diagnoses Not on filedocumented in this encounter Additional Health Concerns Infection Onset Date Last Indicated Resolved Time COVID-19 03/05/2022 03/05/2022 03/15/2022 7:18 PM EDT documented as of this encounter Care Teams Chiropractic Doctor Relationship Specialty Start Date End Date Caitlyn Bowie MD 3400 [facility] 1 [place] [address] PCP - General Internal Medicine 05/06/21 Henry Kelly MD Pulmonary Department 175 [facility], [address] [place] [address] Physician Pulmonary Disease 09/06/17 06/22/20 documented as of this encounter
--- OUTSIDE RECORDS SUMMARY | 2025-03-26 17:08 | XMS_ITS | Encounter Summary ---
Author Organization [facility] Address [address] [place] [address] Care Team Providers Care Field Sales Associate Name Role Phone Caitlyn Bowie MD Primary Care Provider +1- [phone] Encounter Details Date Type Department Care Team (Late st Contact Info) Description 09/18/2020 Scanned Document INTERFACE DEFAULT [address] [place] [address] System, Provider Not In Social History Tobacco [...] [facility] 240 [facility] Building [address] [place] [address] Ronald Mills MD [address] [place] [address] [address] [place] [address] documented as of this encounter Visit Diagnoses Not on filedocumented in this encounter Additional Health Concerns Infection Onset Date Last Indicated Resolved Time COVID-19 03/05/2022 03/05/2022 03/15/2022 7:18 PM EDT Assessment Noted Time PHQ-9 Depression Total Score: 2 11/07/19 19 2:06 PM EDT documented as of this encounter Care Teams Field Sales Associate Relationship Specialty Start Date End Date Caitlyn Bowie MD [address] [address] PCP - General Internal Medicine 05/06/21 documented as of this encounter
--- OUTSIDE RECORDS SUMMARY | 2025-03-26 17:08 | XMS_ITS | Encounter Summary ---
Author Organization [facility] and [facility] Address [address] [place] [address] Care Team Providers Care Special Education Resource Teacher Name Role Phone Caitlyn Bowie MD Primary Care Provider +1- [phone] Encounter Details Date Type Department Care Team (Late st Contact Info) Description 11/29/2017 Scanned Document [facility] Health Information Management [address] [place] [address] External, Provider Social History Tobacco Use Types [...] [facility] Building [address] [place], [place] [address] Ronald Mills MD [address] [place] [address] [address]1 [place] [address] documented as of [...] of this encounter Care Teams Special Education Resource Teacher Relationship Specialty Start Date End Date Caitlyn Bowie MD 3400 [facility] 1 [place] [address] PCP - General Internal Medicine 05/06/21 [place] Kelly MD Pulmonary Department 175 [facility], [address] [place] [address] Physician Pulmonary Disease 09/06/17 06/22/20 documented as of this encounter
--- OUTSIDE RECORDS SUMMARY | 2025-03-26 17:08 | XMS_ITS | Encounter Summary ---
Author Organization [facility] and [facility] Address [address] [place] [address] Care Team Providers Care Threshing Department Supervisor Name Role Phone Caitlyn Bowie MD Primary Care Provider +1- [phone] Encounter Details Date Type Department Care Team (Late st Contact Info) Description 12/21/2020 Scanned Document INTERFACE DEFAULT [address] [place] [address] System, Provider Not In Social History Tobacco [...] at [facility] 240 [facility] Building [address] [place] [address] Ronald Mills MD [address] [place] [address] [address]1 [place] [address] documented as of this encounter Visit Diagnoses Not on filedocumented in this encounter Additional Health Concerns Infection Onset Date Last Indicated Resolved Time COVID-19 03/05/2022 03/05/2022 03/15/2022 7:18 PM EDT Assessment Noted Time PHQ-9 Depression Total Score: 2 11/07/19 19 2:06 PM EDT documented as of this encounter Care Teams Threshing Department Supervisor Relationship Specialty Start Date End Date Caitlyn Bowie MD [address] [address] PCP - General Internal Medicine 05/06/21 documented as of this encounter
--- OUTSIDE RECORDS SUMMARY | 2025-03-26 17:08 | XMS_ITS | Encounter Summary ---
Author Organization [facility] and [facility] Address [address] [place] [address] Care Team Providers Care Manager Risk Management Name Role Phone Caitlyn Bowie MD Primary Care Provider +1- [phone] Encounter Details Date Type Department Care Team (Late st Contact Info) Description 05/01/2015 Scanned Document [facility] Health Information Management [address] [place] [address] External, Provider Social History Tobacco Use Types [...] [facility] 240 [facility] Building [address] [place], [place] [address] Ronald Mills MD 240 [facility] Max [address]1 [place] [address] documented as of this encounter [...] as of this encounter Care Teams Manager Risk Management Relationship Specialty Start Date End Date Caitlyn Bowie MD 3400 [facility] Max 1 [place] [address] PCP - General Internal Medicine 05/06/21 [place] Kelly MD Pulmonary Department 175 [facility], [address] [place] [address] Physician Pulmonary Disease 09/06/17 06/22/20 documented as of this encounter
--- OUTSIDE RECORDS SUMMARY | 2025-03-26 17:08 | XMS_ITS | Encounter Summary ---
Author Organization [facility] and [facility] Address [address] [place] [address] Care Team Providers Care Plate Grainer Name Role Phone Caitlyn Bowie MD Primary Care Provider +1- [phone] Encounter Details Date Type Department Care Team (Late Contact Info) Description 02/02/2021 Scanned Document [facility] Health Information Management [address] [place] [address] External, Provider Social History Tobacco Use Types [...] Center at [facility] 240 [facility] Building [address] [place], [place] [address] Ronald Mills MD [address] [place] [address] [address]1 [place] [address] documented as of this encounter Visit Diagnoses Not on filedocumented in this encounter Additional Health Concerns Infection Onset Date Last Indicated Resolved Time COVID-19 03/05/2022 03/05/2022 03/15/2022 7:18 PM EDT Assessment Noted Time PHQ-9 Depression Total Score: 2 11/07/19 19 2:06 PM EDT documented as of this encounter Care Teams Plate Grainer Relationship Specialty Start Date End Date Caitlyn Bowie MD [address] [address] PCP - General Internal Medicine 05/06/21 documented as of this encounter
--- OUTSIDE RECORDS SUMMARY | 2025-03-26 17:08 | XMS_ITS | Encounter Summary ---
Author Organization [facility] Address [address] [place] [address] Care Team Providers Care Ground Crew Supervisor Name Role Phone Caitlyn Bowie MD Primary Care Provider +1- [phone] Encounter Details Date Type Department Care Team (Late st Contact Info) Description 03/15/2021 Scanned Document INTERFACE DEFAULT [address] [place] [address] System, Provider Not In Social History Tobacco [...] [facility] 240 [facility] Building [address] [place], [place] [address] Ronald Mills MD [address] [place] [address] [address] [place] [address] documented as of this encounter [...] of this encounter Care Teams Ground Crew Supervisor Relationship Specialty Start Date End Date Caitlyn Bowie MD [facility] [address] [address] PCP - General Internal Medicine 05/06/21 documented as of this encounter
--- OUTSIDE RECORDS SUMMARY | 2025-03-26 17:08 | XMS_ITS | Encounter Summary ---
Author Organization [facility] and [facility] Address [address] [place] [address] Care Team Providers Care Shoe Repair Supervisor Name Role Phone Caitlyn Bowie MD Primary Care Provider +1- [phone] Encounter Details Date Type Department Care Team (Late st Contact Info) Description 02/01/2018 Scanned Document [facility] Health Information Management [address] [place] [address] External, Provider Social History Tobacco Use Types [...] [facility] at [facility] 240 [facility] Building [address] [place], [place] [address] Ronald Mills MD [address] [place] [address] [address]1 [place] [address] documented as of this encounter [...] as of this encounter Care Teams Shoe Repair Supervisor Relationship Specialty Start Date End Date Caitlyn Bowie MD 3400 [facility] 1 [place] [address] PCP - General Internal Medicine 05/06/21 [place] Kelly MD Pulmonary Department 175 [facility], [address] [place] [address] Physician Pulmonary Disease 09/06/17 06/22/20 documented as of this encounter
--- OUTSIDE RECORDS SUMMARY | 2025-03-26 17:08 | XMS_ITS | Encounter Summary ---
Author Organization [facility] and [facility] Address [address] [place] [address] Care Team Providers Care Advertising Vice President Name Role Phone Caitlyn Bowie MD Primary Care Provider +1- [phone] Encounter Details Date Type Department Care Team (Late st Contact Info) Description 01/13/2021 Scanned Document Cancer Center at [address] [address] External, Provider Social History Tobacco Use Types [...] at [facility] 240 [facility] Building [address] [place], [place] [address] Ronald Mills MD [address] [place] [address] [address]1 [place] [address] documented as of this encounter [...] as of this encounter Care Teams Advertising Vice President Relationship Specialty Start Date End Date Caitlyn Bowie MD [address] [address] PCP - General Internal Medicine 05/06/21 documented as of this encounter
--- OUTSIDE RECORDS SUMMARY | 2025-03-26 17:08 | XMS_ITS | Encounter Summary ---
Author Organization [facility] and [facility] Address [address] [place] [address] Care Team Providers Care Acds Block 1 Operator Name Role Phone Catilyn Bowie MD Primary Care Provider +1- [phone] Encounter Details Date Type Department Care Team (Late Contact Info) Description 02/03/2021 Scanned Document [facility] Health Information Management [address] [place] [address] External, Provider Social History Tobacco Use Types [...] [facility] at [facility] 240 [facility] Building [address] [place], [place] [address] Ronald Mills MD [address] [place] [address] [address]1 [place] [address] documented as of this encounter [...] documented as of this encounter Care Teams Acds Block 1 Operator Relationship Specialty Start Date End Date Caitlyn Bowie MD [address] [address] PCP - General Internal Medicine 05/06/21 documented as of this encounter
--- OUTSIDE RECORDS SUMMARY | 2025-03-26 17:08 | XMS_ITS | Encounter Summary ---
Author Organization [facility] Address [address] [place] [address] Care Team Providers Care Medical Transcription Editor Name Role Phone Caitlyn Bowie MD Primary Care Provider +1- [phone] Encounter Details Date Type Department Care Team (Late st Contact Info) Description 01/30/2018 Scanned Document [facility] Health Information Management [address] [place] [address] External, Provider Social History Tobacco Use Types [...] at [facility] 240 [facility] Building [address] [place], [place] [phone] Ronald Mills MD [address] [place] [address] [address]1 [place] [address] documented as of this encounter [...] as of this encounter Care Teams Medical Transcription Editor Relationship Specialty Start Date End Date Caitlyn Bowie MD [facility] 1 [place] [address] PCP - General Internal Medicine 05/06/21 [place] Kelly MD Pulmonary Department 175 [facility], [address] [place] [address] Physician Pulmonary Disease 09/06/17 06/22/20 documented as of this encounter
--- OUTSIDE RECORDS SUMMARY | 2025-03-26 17:08 | XMS_ITS | Encounter Summary ---
Author Organization [facility] and [facility] Address [address] [place] [address] Care Team Providers Care Beauty Operator Apprentice Name Role Phone Caitlyn Bowie MD Primary Care Provider +1- [phone] Encounter Details Date Type Department Care Team (Late st Contact Info) Description 04/11/2021 Scanned Document INTERFACE DEFAULT [address] [place] [address] System, Provider Not In Social History Tobacco [...] Center at [facility] 240 [facility] Building [address] [place], [place] [address] Ronald Mills MD [address] [place] [address] [address] [place] [address] documented as of this encounter [...] as of this encounter Care Teams Beauty Operator Apprentice Relationship Specialty Start Date End Date Caitlyn Bowie MD [address] [address] PCP - General Internal Medicine 05/06/21 documented as of this encounter
--- OUTSIDE RECORDS SUMMARY | 2025-03-26 17:08 | XMS_ITS | Encounter Summary ---
Author Organization [facility] and [facility] Address [address] [place] [address] Care Team Providers Care Cardroom Attendant Name Role Phone Caitlyn Bowie MD Primary Care Provider +1- [phone] Encounter Details Date Type Department Care Team (Late st Contact Info) Description 03/16/2021 Scanned Document INTERFACE DEFAULT [address] [place] [address] System, Provider Not In Social History Tobacco [...] [facility] 240 [facility] Building [address] [place] [address] Ronald Mills MD [address] [place] [address] [address]1 [place] [address] documented as of this encounter Visit Diagnoses Not on filedocumented in this encounter Additional Health Concerns Infection Onset Date Last Indicated Resolved Time COVID-19 03/05/2022 03/05/2022 03/15/2022 7:18 PM EDT Assessment Noted Time PHQ-9 Depression Total Score: 2 11/07/19 19 2:06 PM EDT documented as of this encounter Care Teams Cardroom Attendant Relationship Specialty Start Date End Date Caitlyn Bowie MD [address] [address] PCP - General Internal Medicine 05/06/21 documented as of this encounter
--- OUTSIDE RECORDS SUMMARY | 2025-03-26 17:08 | XMS_ITS | Encounter Summary ---
Author Organization [facility] and [facility] Address [address] [place] [address] Care Team Providers Care Scheduling Representative Name Role Phone Caitlyn Bowie MD Primary Care Provider +1- [phone] Encounter Details Date Type Department Care Team (Late st Contact Info) Description 11/09/2014 Scanned Document [facility] Health Information Management [address] [place] [address] External, Provider Social History Tobacco Use Types [...] [facility] 240 [facility] Building [address] [place], [place] [address] Ronald Mills MD 240 [facility] A1 [place] [address] documented as of this encounter Visit Diagnoses Not on filedocumented in this encounter Additional Health Concerns Infection Onset Date Last Indicated Resolved Time COVID-19 03/05/2022 03/05/2022 03/15/2022 7:18 PM EDT documented as of this encounter Care Teams Scheduling Representative Relationship Specialty Start Date End Date Caitlyn Bowie MD 3400 [facility] 1 [place] [address] PCP - General Internal Medicine 05/06/21 [place] Kelly MD Pulmonary Department 175 [facility], [address] [place] [address] Physician Pulmonary Disease 09/06/17 06/22/20 documented as of this encounter
--- OUTSIDE RECORDS SUMMARY | 2025-03-26 17:08 | XMS_ITS | Encounter Summary ---
Author Organization [facility] and [facility] Address [address] [place] [address] Care Team Providers Care Inspector Experimental Assembly Name Role Phone Caitlyn Bowie MD Primary Care Provider +1- [phone] Encounter Details Date Type Department Care Team (Late st Contact Info) Description 09/01/2017 Scanned Document [facility] Health Information Management [address] [place] [address] External, Provider Social History Tobacco Use Types [...] [facility] at [facility] 240 [facility] Building [address] [place], [place] [address] Ronald Mills MD [address] [place] [address] [address]1 [place] [address] documented as of this encounter [...] as of this encounter Care Teams Inspector Experimental Assembly Relationship Specialty Start Date End Date Caitlyn Bowie MD [facility]0 [facility] 1 [place] [address] PCP - General Internal Medicine 05/06/21 [place] Kelly MD Pulmonary Department 175 [facility], [address] [place] [address] Physician Pulmonary Disease 09/06/17 06/22/20 documented as of this encounter
--- OUTSIDE RECORDS SUMMARY | 2025-03-26 17:08 | XMS_ITS | Encounter Summary ---
Author Organization [facility] and [facility] Address [address] [place] [address] Care Team Providers Care Brick Picker Name Role Phone Caitlyn Bowie MD Primary Care Provider +1- [phone] Encounter Details Date Type Department Care Team (Late st Contact Info) Description 01/26/2018 Scanned Document [facility] Health Information Management [address] [place] [address] External, Provider Social History Tobacco Use [...] [facility] 240 [facility] Building [address] [place], [place] [phone] Ronald Mills MD 240 [facility] A1 [place] [address] documented as of this encounter Visit Diagnoses Not on filedocumented in this encounter Additional Health Concerns Infection Onset Date Last Indicated Resolved Time COVID-19 03/05/2022 03/05/2022 03/15/2022 7:18 PM EDT documented as of this encounter Care Teams Brick Picker Relationship Specialty Start Date End Date Caitlyn Bowie MD 3400 [facility] 1 [place] [address] PCP - General Internal Medicine 05/06/21 [place] Kelly MD Pulmonary Department 175 [facility], [address] [place] [address] Physician Pulmonary Disease 09/06/17 06/22/20 documented as of this encounter
--- OUTSIDE RECORDS SUMMARY | 2025-03-26 17:08 | XMS_ITS | Encounter Summary ---
Author Organization [facility] and [facility] Address [address] [place] [address] Care Team Providers Care Alignment Mechanic Name Role Phone Caitlyn Bowie MD Primary Care Provider +1- [phone] Encounter Details Date Type Department Care Team (Late st Contact Info) Description 02/02/2018 Scanned Document [facility] Health Information Management [address] [place] [address] External, Provider Social History Tobacco Use Types [...] [facility] 240 [facility] Building [address] [place], [place] [address] Ronald Mills MD [address] [place] [address] [address]1 [place] [address] documented as [...] documented as of this encounter Care Teams Alignment Mechanic Relationship Specialty Start Date End Date Caitlyn Bowie MD 3400 [facility] 1 [place] [address] PCP - General Internal Medicine 05/06/21 [place] MD Pulmonary Department 175 [facility], [address] [place] [address] Physician Pulmonary Disease 09/06/17 06/22/20 documented as of this encounter
--- OUTSIDE RECORDS SUMMARY | 2025-03-26 17:08 | XMS_ITS | Encounter Summary ---
Author Organization [facility] and [facility] Address [address] [place] [address] Care Team Providers Care Lean Leader Name Role Phone Caitlyn Bowie MD Primary Care Provider +1- [phone] Reason for Visit * Reason Comments Other Encounter Details Date Type Department Care Team (Late st Contact Info) Description 01/12/2021 Telephone [facility] at [address] - [address] [phone] Ronald Mills MD [address] [place] [address] Other Social History Tobacco Use Types [...] AM EDT Lab orders were faxed to [facility] @ [phone]. Patient notified by phone. * Telephone Encounter - Kathleen Nasima - 01/12/2021 8:46 AM EDT Pt called looking to speak with Kirstin RE: lab orders sent to lab [facility] lab Looking to have labs sent there A.S.A.P at some point today She is scheduled with Dr. Mills on January 28 documented in this encounter Plan of Treatment Upcoming Encounters Date Type Department Care Team (Late st Contact Info) Description 04/25/2025 4:00 PM EDT Telemedicine [facility] 240 [facility] Building [address] [place], [place] [address] Ronald Mills MD 240 [facility] Max [address] [place] [address] documented as of this encounter [...] End Date Caitlyn Bowie MD [address] [address] PCP - General Internal Medicine 05/06/21 documented as of this encounter
--- OUTSIDE RECORDS SUMMARY | 2025-03-26 17:08 | XMS_ITS | Encounter Summary ---
Author Organization [facility] Address [address] [place] [address] Care Team Providers Care Development Mechanic Name Role Phone Caitlyn Bowie MD Primary Care Provider +1- [phone] Encounter Details Date Type Department Care Team (Late st Contact Info) Description 03/11/2021 Scanned Document INTERFACE DEFAULT [address] [place] [address] System, Provider Not In Social History Tobacco [...] [facility] Building [address] [place], [place] [address] Ronald Mills MD [address] [place] [address] [address] [place] [address] documented as of this encounter Procedures Procedure Name Priority Date/Time Associated Diagnosis Comments LAB SCAN 03/11/2021 12:00 AM EDT LAB SCAN 03/11/2021 12:00 AM EDT documented in this encounter Results * LAB SCAN (03/11/2021 12:00 AM EDT) 03/11/2021 us Provider Not In System LAB BLOOD ORDERABLES Carmnia l Result * LAB SCAN (03/11/2021 12:00 [...] as of this encounter Care Teams Development Mechanic Relationship Specialty Start Date End Date Caitlyn Bowie MD [facility] [address] [address] PCP - General Internal Medicine 05/06/21 documented as of this encounter
--- OUTSIDE RECORDS SUMMARY | 2025-03-26 17:08 | XMS_ITS | Encounter Summary ---
Author Organization [facility] and [facility] Address [address] [place] [address] Care Team Providers Care Stucco Applicator Name Role Phone Caitlyn Bowie MD Primary Care Provider +1- [phone] Encounter Details Date Type Department Care Team (Late st Contact Info) Description 03/01/2021 Scanned Document INTERFACE DEFAULT [address] [place] [address] System, Provider Not In Social History Tobacco [...] [facility] 240 [facility] Building [address] [place] [address] Ronald Mills MD [address] [place] [address] [address]1 [place] [address] documented as of this encounter Visit Diagnoses Not on filedocumented in this encounter Additional Health Concerns Infection Onset Date Last Indicated Resolved Time COVID-19 03/05/2022 03/05/2022 03/15/2022 7:18 PM EDT Assessment Noted Time PHQ-9 Depression Total Score: 2 11/07/19 19 2:06 PM EDT documented as of this encounter Care Teams Stucco Applicator Relationship Specialty Start Date End Date Caitlyn Bowie MD [address] [address] PCP - General Internal Medicine 05/06/21 documented as of this encounter
--- OUTSIDE RECORDS SUMMARY | 2025-03-26 17:09 | XMS_ITS | Encounter Summary ---
Author Organization [facility] and [facility] Address [address] [place] [address] Care Team Providers Care Facilities Planner Name Role Phone Caitlyn Bowie MD Primary Care Provider +1- [phone] Encounter Details Date Type Department Care Team (Late st Contact Info) Description 06/07/2021 Scanned Document [facility]Oncology Program at [address] [place] [address] Norma Renee MD [address] [place] [address] 2 [place] [address] Social History Tobacco Use Types [...] PM EDT Telemedicine Cancer Center at [address] [place], [place] [address] Ronald Mills MD 240 [facility] A1 [place] [address] documented as of this encounter Visit Diagnoses Not on filedocumented in this encounter Additional Health Concerns Infection Onset Date Last Indicated Resolved Time COVID-19 03/05/2022 03/05/2022 03/15/2022 7:18 PM EDT Assessment Noted Time PHQ-9 Depression Total Score: 2 11/07/19 19 2:06 PM EDT documented as of this encounter Care Teams Facilities Planner Relationship Specialty Start Date End Date Caitlyn Bowie MD [address] [address] PCP - General Internal Medicine 05/06/21 documented as of this encounter
--- OUTSIDE RECORDS SUMMARY | 2025-03-26 17:09 | XMS_ITS | Encounter Summary ---
Author Organization [facility] Address [address] [place] [address] Care Team Providers Care Microsoft Bi Architect Name Role Phone Caitlyn Bowie MD Primary Care Provider +1- [phone] Reason for Visit * Reason Comments Triage Encounter Details Date Type Department Care Team (Late st Contact Info) Description 10/18/2021 Telephone [facility] at [address] - [address] [phone] Ronald Mills MD [address] [place] [address] Triage Social History Tobacco Use Types [...] Healthcare Services [facility] [address] [facility] [address] [place], [place] [address] Ronald Mills MD 240 [facility] [address] [place] [phone] documented as of this encounter Visit Diagnoses Not on filedocumented in this encounter Additional Health Concerns Infection Onset Date Last Indicated Resolved Time COVID-19 03/05/2022 03/05/2022 03/15/2022 7:18 PM EDT Assessment Noted Time PHQ-9 Depression Total Score: 2 11/07/19 19 2:06 PM EDT documented as of this encounter Care Teams Microsoft Bi Architect Relationship Specialty Start Date End Date Caitlyn Bowie MD [address] [address] PCP - General Internal Medicine 05/06/21 documented as of this encounter
--- OUTSIDE RECORDS SUMMARY | 2025-03-26 17:09 | XMS_ITS | Encounter Summary ---
Author Organization [facility] and [facility] Address [address] [place] [address] Care Team Providers Care Sales Order Clerk Name Role Phone Caitlyn Bowie MD Primary Care Provider +1- [phone] Encounter Details Date Type Department Care Team (Late st Contact Info) Description 09/24/2021 Scanned Document INTERFACE DEFAULT [address] [place] [address] System, Provider Not In Social History Tobacco [...] [facility] 240 [facility] [address] [place] [address] Ronald Mills MD [address] [place] [address] [address] [place] [address] documented as of this encounter [...] of this encounter Care Teams Sales Order Clerk Relationship Specialty Start Date End Date Caitlyn Bowie MD [facility] [address] [address] PCP - General Internal Medicine 05/06/21 documented as of this encounter
--- OUTSIDE RECORDS SUMMARY | 2025-03-26 17:09 | XMS_ITS | Encounter Summary ---
Author Organization [facility] and [facility] Address [address] [place] [address] Care Team Providers Care Chemistry Lab Instructor Name Role Phone Caitlyn Bowie MD Primary Care Provider +1- [phone] Encounter Details Date Type Department Care Team (Late st Contact Info) Description 04/27/2021 Scanned Document INTERFACE DEFAULT [address] [place] [address] System, Provider Not In Social History Tobacco [...] at [facility] 240 [facility] [address] [place] [address] Ronald Mills MD [address] [place] [address] [address] [place] [address] documented as of this encounter [...] as of this encounter Care Teams Chemistry Lab Instructor Relationship Specialty Start Date End Date Caitlyn Bowie MD [address] [address] PCP - General Internal Medicine 05/06/21 documented as of this encounter
--- OUTSIDE RECORDS SUMMARY | 2025-03-26 17:09 | XMS_ITS | Encounter Summary ---
Author Organization [facility] Address [address] [place] [address] Care Team Providers Care Community Outreach Manager Name Role Phone Caitlyn Bowie MD Primary Care Provider +1- [phone] Encounter Details Date Type Department Care Team (Late st Contact Info) Description 12/04/2014 Scanned Document [facility] Health Information Management [address] [place] [address] External, Provider Social History Tobacco Use Types [...] Health – [facility] 240 [facility] Building [address] [place], [place] [phone] Ronald Mills MD 240 [facility] [address] [place] [address] documented as of this encounter Procedures Procedure Name Priority Date/Time Associated Diagnosis Comments LAB SCAN Routine 12/04/2014 documented in this encounter Results * Lab Scan (12/04/2014) Blood specimen (specimen) us Provider External LAB BLOOD ORDERABLES Final Res ult [facility] documented in this encounter Visit Diagnoses Not on filedocumented in this encounter Additional Health Concerns Infection Onset Date Last Indicated Resolved Time COVID-19 03/05/2022 03/05/2022 03/15/2022 7:18 PM EDT documented as of this encounter Care Teams Community Outreach Manager Relationship Specialty Start Date End Date Caitlyn Bowie MD 3400 [facility] 1 [place] [address] PCP - General Internal Medicine 05/06/21 Henry Kelly MD Pulmonary Department [address] [facility] [place] [address] Physician Pulmonary Disease 09/06/17 06/22/20 documented as of this encounter
--- OUTSIDE RECORDS SUMMARY | 2025-03-26 17:09 | XMS_ITS | Encounter Summary ---
Author Organization [facility] and [facility] Address [address] [place] [address] Care Team Providers Care Automation Specialist Name Role Phone Caitlyn Bowie MD Primary Care Provider +1- [phone] Encounter Details Date Type Department Care Team (Late st Contact Info) Description 01/26/2018 Scanned Document [facility] Health Information Management [address] [place] [address] External, Provider Social History Tobacco Use Types [...] [facility] 240 [facility] Building [address] [place] [address] Ronald Mills MD 240 [facility] A1 [place] [address] documented as of this encounter [...] as of this encounter Care Teams Automation Specialist Relationship Specialty Start Date End Date Caitlyn Bowie MD 3400 [facility] 1 [place] [address] PCP - General Internal Medicine 05/06/21 Henry Kelly MD Pulmonary Department 175 [facility], [address] [place] [address] Physician Pulmonary Disease 09/06/17 06/22/20 documented as of this encounter
--- OUTSIDE RECORDS SUMMARY | 2025-03-26 17:09 | XMS_ITS | Encounter Summary ---
Author Organization [facility] and [facility] Address [address] [place] [address] Care Team Providers Care Banking Services Officer Name Role Phone Caitlyn Bowie MD Primary Care Provider +1- [phone] Encounter Details Date Type Department Care Team (Late st Contact Info) Description 09/09/2021 Scanned Document INTERFACE DEFAULT [address] [place] [address] System, Provider Not In Social History Tobacco [...] [facility] 240 [facility] [address] [place] [address] Ronald Mills MD [address] [place] [address] [address] [place] [address] documented as of this encounter Visit Diagnoses Not on filedocumented in this encounter Additional Health Concerns Infection Onset Date Last Indicated Resolved Time COVID-19 03/05/2022 03/05/2022 03/15/2022 7:18 PM EDT Assessment Noted Time PHQ-9 Depression Total Score: 2 11/07/19 19 2:06 PM EDT documented as of this encounter Care Teams Banking Services Officer Relationship Specialty Start Date End Date Caitlyn Bowie MD [address] [address] PCP - General Internal Medicine 05/06/21 documented as of this encounter
--- OUTSIDE RECORDS SUMMARY | 2025-03-26 17:09 | XMS_ITS | Encounter Summary ---
Author Organization [facility] Address [address] [place] [address] Care Team Providers Care Daily Sales Audit Clerk Name Role Phone Caitlyn Bowie MD Primary Care Provider +1- [phone] Encounter Details Date Type Department Care Team (Late st Contact Info) Description 04/26/2021 Scanned Document INTERFACE DEFAULT [address] [place] [address] System, Provider Not In Social History Tobacco [...] [facility] 240 [facility] [address] [place], [place] [phone] Ronald Mills MD [address] [place] [address] [address] [place] [address] documented as of this encounter [...] documented as of this encounter Care Teams Daily Sales Audit Clerk Relationship Specialty Start Date End Date Caitlyn Bowie MD [address] [address] PCP - General Internal Medicine 05/06/21 documented as of this encounter
--- OUTSIDE RECORDS SUMMARY | 2025-03-26 17:09 | XMS_ITS | Encounter Summary ---
Author Organization [facility] Address [address] [place] [address] Care Team Providers Care Juice Standardizer Name Role Phone Caitlyn Bowie MD Primary Care Provider +1- [phone] Reason for Visit * Reason Comments Advice Only Encounter Details Date Type Department Care Team ([facility] st Contact Info) Description 06/01/2021 Telephone [facility] at [address] [phone] Ronald Mills MD [address] [place] [address] Advice Only Social History Tobacco Use [...] added that she's called before and sent [employer] messages but hasn't received a reply,[phone]. documented in this encounter Plan of Treatment Upcoming Encounters Date Type Department Care Team (Late st Contact Info) Description 04/25/2025 4:00 PM EDT [facility] 240 [facility] Building [address] [place], [place] [phone] Ronald Mills MD 240 [facility] [address] [place] [address] documented as of this encounter Visit Diagnoses Not on filedocumented in this encounter Additional Health Concerns Infection Onset Date Last Indicated Resolved Time COVID-19 03/05/2022 03/05/2022 03/15/2022 7:18 PM EDT Assessment Noted Time PHQ-9 Depression Total Score: 2 11/07/19 19 2:06 PM EDT documented as of this encounter Care Teams Juice Standardizer Relationship Specialty Start Date End Date Caitlyn Bowie MD 3400 [facility] 1 [place] [address] PCP - General Internal Medicine 05/06/21 documented as of this encounter
--- OUTSIDE RECORDS SUMMARY | 2025-03-26 17:09 | XMS_ITS | Encounter Summary ---
Author Organization [facility] Address [address] [place] [address] Care Team Providers Care Road Inspector Name Role Phone Caitlyn Bowie MD Primary Care Provider +1- [phone] Encounter Details Date Type Department Care Team (Late st Contact Info) Description 01/27/2018 Scanned Document [facility] Health Information Management [address] [place] [address] External, Provider Social History Tobacco Use Types [...] [facility] 240 [facility] Building [address] [place], [place] [phone] Ronald Mills MD 240 [facility] A1 [place] [address] documented as of this encounter Visit Diagnoses Not on filedocumented in this encounter Additional Health Concerns Infection Onset Date Last Indicated Resolved Time COVID-19 03/05/2022 03/05/2022 03/15/2022 7:18 PM EDT documented as of this encounter Care Teams Road Inspector Relationship Specialty Start Date End Date Caitlyn Bowie MD 3400 [facility] 1 [place] [address] PCP - General Internal Medicine 05/06/21 Henry Kelly MD Pulmonary Department 175 [facility], [address] [place] [address] Physician Pulmonary Disease 09/06/17 06/22/20 documented as of this encounter
--- OUTSIDE RECORDS SUMMARY | 2025-03-26 17:09 | XMS_ITS | Encounter Summary ---
Author Organization [facility] and [facility] Address [address] [place] [address] Care Team Providers Care Lead Generation Specialist Name Role Phone Caitlyn Bowie MD Primary Care Provider +1- [phone] Encounter Details Date Type Department Care Team (Late st Contact Info) Description 01/26/2018 Scanned Document [facility] Health Information Management [address] [place] [address] External, Provider Social History Tobacco Use Types [...] – [facility] 240 [facility] Building [address] [place] [address] Ronald Mills MD [address] [place] [address] [address]1 [place] [address] documented as of this encounter [...] MD 3400 [facility] 1 [place] [address] PCP - General Internal Medicine 05/06/21 Henry Kelly MD Pulmonary Department [address] [place] [address], [address] [place] [address] Physician Pulmonary Disease 09/06/17 06/22/20 documented as of this encounter
--- OUTSIDE RECORDS SUMMARY | 2025-03-26 17:09 | XMS_ITS | Encounter Summary ---
Author Organization [facility] Address [address] [place] [address] Care Team Providers Care Director Oracle Retail Name Role Phone Caitlyn Bowie MD Primary Care Provider +1- [phone] Encounter Details Date Type Department Care Team (Late st Contact Info) Description 06/07/2021 Scanned Document [facility]On[facility] Program at [address] [place] [address] Norma Renee MD [address] [place] [address] 2 [place] [address] Social History Tobacco Use Types [...] PM EDT Telemedicine Cancer Center at [address] [place], [place] [address] Ronald Mills MD 240 [facility] A1 [place] [address] documented as of this encounter Visit Diagnoses Not on filedocumented in this encounter Additional Health Concerns Infection Onset Date Last Indicated Resolved Time COVID-19 03/05/2022 03/05/2022 03/15/2022 7:18 PM EDT Assessment Noted Time PHQ-9 Depression Total Score: 2 11/07/19 19 2:06 PM EDT documented as of this encounter Care Teams Director [employer] Relationship Specialty Start Date End Date Caitlyn Bowie MD [address] [address] PCP - General Internal Medicine 05/06/21 documented as of this encounter
--- OUTSIDE RECORDS SUMMARY | 2025-03-26 17:09 | XMS_ITS | Encounter Summary ---
Author Organization [facility] Address [address] [place] [address] Care Team Providers Care Aircraft Life Support Fitter Name Role Phone Caitlyn Bowie MD Primary Care Provider +1- [phone] Encounter Details Date Type Department Care Team (Late st Contact Info) Description 04/25/2021 Scanned Document INTERFACE DEFAULT [address] [place] [address] System, Provider Not In Social History Tobacco [...] – [facility] 240 [facility] Building [address] [place] [address] Ronald Mills MD [address] [place] [address] [address] [place] [address] documented as of this encounter [...] as of this encounter Care Teams Aircraft Life Support Fitter Relationship Specialty Start Date End Date Caitlyn Bowie MD [address] [address] PCP - General Internal Medicine 05/06/21 documented as of this encounter
--- OUTSIDE RECORDS SUMMARY | 2025-03-26 17:09 | XMS_ITS | Encounter Summary ---
Author Organization [facility] and [facility] Address [address] [place] [address] Care Team Providers Care Oceanography Teacher Name Role Phone Caitlyn Bowie MD Primary Care Provider +1- [phone] Encounter Details Date Type Department Care Team (Late st Contact Info) Description 03/13/2015 Scanned Document [facility] Health Information Management [address] [place] [address] External, Provider Social History Tobacco Use [...] [facility] 240 [facility] Building [address] [place], [place] [address] Ronald Mills MD 240 [facility] [address] [place] [address] documented as of this encounter Procedures Procedure Name Priority Date/Time Associated Diagnosis Comments LAB SCAN Routine 02/16/2015 LAB SCAN Routine 02/16/2015 documented in this encounter Results * Lab Scan (02/16/2015) Blood specimen (specimen) us Provider External LAB BLOOD ORDERABLES Final Res ult Performing Organization Address [facility]/ZIP Co de Phone Number [facility] * Lab Scan (02/16/2015) Blood specimen (specimen) Provider External LAB BLOOD ORDERABLES Final Res ult Performing Organization Address [facility] Co de Phone Number [facility] documented in this encounter Visit Diagnoses Not on filedocumented in this encounter Additional Health Concerns Infection Onset Date Last Indicated Resolved Time COVID-19 03/05/2022 03/05/2022 03/15/2022 7:18 PM EDT documented as of this encounter Care Teams Oceanography Teacher Relationship Specialty Start Date End Date Caitlyn Bowie MD 3400 [facility] 1 [place] [address] PCP - General Internal Medicine 05/06/21 Henry Kelly MD Pulmonary Department 175 [facility], [address] [place] [address] Physician Pulmonary Disease 09/06/17 06/22/20 documented as of this encounter
--- OUTSIDE RECORDS SUMMARY | 2025-03-26 17:09 | XMS_ITS | Encounter Summary ---
Author Organization [facility] Address [address] [place] [address] Care Team Providers Care Scaler Packer Name Role Phone Caitlyn Bowie MD Primary Care Provider +1- [phone] Encounter Details Date Type Department Care Team (Late st Contact Info) Description 07/26/2018 Scanned Document [facility] Health Information Management [address] [place] [address] External, Provider Social History Tobacco Use Types [...] [facility] Building [address] [place], [place] [address] Ronald Mills MD 240 [facility] A1 [place] [address] documented as [...] documented as of this encounter Care Teams Scaler Packer Relationship Specialty Start Date End Date Caitlyn Bowie MD 3400 [facility] 1 [place] [address] PCP - General Internal Medicine 05/06/21 Henry Kelly MD Pulmonary Department 175 [facility], [address] [place] [address] Physician Pulmonary Disease 09/06/17 06/22/20 documented as of this encounter
--- OUTSIDE RECORDS SUMMARY | 2025-03-26 17:09 | XMS_ITS | Encounter Summary ---
Author Organization [facility] Address [address] [place] [address] Phone Care Team Providers Care Automobile Mechanic Helper Name Role Phone Caitlyn Bowie MD Primary Care Provider +1- [phone] Encounter Details Date Type Department Care Team (Late Contact Info) Description 03/17/2025 Documentation Only [facility] [address] [place] [address] Marina Abdi [address] [place] [address] Social History Tobacco Use Types [...] [facility] [address] [place] [address] Rubén Ashraf MD [address] [place] [address] [place] [address] documented as of this encounter Visit Diagnoses Not on filedocumented in this encounter Care Teams Automobile Mechanic Helper Relationship Specialty Start Date End Date Caitlyn Bowie MD 3400 [place], [place] PCP - General Internal Medicine 09/24/24 documented as of this encounter
--- OUTSIDE RECORDS SUMMARY | 2025-03-26 17:09 | XMS_ITS | Encounter Summary ---
Author Organization [facility] Address [address] [place] [address] Care Team Providers Care Manager Branch Name Role Phone Caitlyn Bowie MD Primary Care Provider +1- [phone] Encounter Details Date Type Department Care Team (Late st Contact Info) Description 05/27/2021 Telephone [facility] at [address] [address] Ronald Mills MD [address] [place] [address] Social History Tobacco Use Types Packs/Day [...] [facility] 240 [facility] [address] [place], [place] [address] Ronald Mills MD 240 [facility] [address] [place] [address] documented as of this encounter Visit Diagnoses Not on filedocumented in this encounter Additional Health Concerns Infection Onset Date Last Indicated Resolved Time COVID-19 03/05/2022 03/05/2022 03/15/2022 7:18 PM EDT Assessment Noted Time PHQ-9 Depression Total Score: 2 11/07/19 19 2:06 PM EDT documented as of this encounter Care Teams Manager Branch Relationship Specialty Start Date End Date Caitlyn Bowie MD [address] [address] PCP - General Internal Medicine 05/06/21 documented as of this encounter
--- OUTSIDE RECORDS SUMMARY | 2025-03-26 17:09 | XMS_ITS | Encounter Summary ---
Author Organization [facility] Address [address] [place] [address] Care Team Providers Care Test Inspection Engineer Name Role Phone Caitlyn Bowie MD Primary Care Provider +1- [phone] Encounter Details Date Type Department Care Team (Late st Contact Info) Description 01/27/2018 Scanned Document [facility] Health Information Management [address] [place] [address] External, Provider Social History Tobacco Use Types [...] [facility] 240 [facility] Building [address] [place] [address] Ronald Mills MD 240 [facility] A1 [place] [address] documented as of this encounter [...] as of this encounter Care Teams Test Inspection Engineer Relationship Specialty Start Date End Date Caitlyn Bowie MD 3400 [facility] 1 [place] [address] PCP - General Internal Medicine 05/06/21 Henry Kelly MD Pulmonary Department 175 [facility], [address] [place] [address] Physician Pulmonary Disease 09/06/17 06/22/20 documented as of this encounter
--- OUTSIDE RECORDS SUMMARY | 2025-03-26 17:09 | XMS_ITS | Encounter Summary ---
Author Organization [facility] Address [address] [place] [address] Care Team Providers Care Corpsman Name Role Phone Caitlyn Bowie MD Primary Care Provider +1- [phone] Encounter Details Date Type Department Care Team (Late st Contact Info) Description 09/23/2021 Scanned Document INTERFACE DEFAULT [address] [place] [address] System, Provider Not In Social History Tobacco [...] [facility] 240 [facility] Building [address] [place], [place] [address] Ronald Mills MD [address] [place] [address] [address] [place] [address] documented as [...] documented as of this encounter Care Teams Corpsman Relationship Specialty Start Date End Date Caitlyn Bowie MD [address] [address] PCP - General Internal Medicine 05/06/21 documented as of this encounter
--- OUTSIDE RECORDS SUMMARY | 2025-03-26 17:09 | XMS_ITS | Encounter Summary ---
Author Organization [facility] and [facility] Address [address] [place] [address] Care Team Providers Care Enterprise Records Analyst Name Role Phone Caitlyn Bowie MD Primary Care Provider +1- [phone] Encounter Details Date Type Department Care Team (Late Contact Info) Description 10/29/2021 Scanned Document [facility] Health Information Management [address] [place] [address] External, Provider Social History Tobacco Use Types [...] [facility] Building [address] [place], [place] [id number] Ronald Mills MD [address] [place] [address] [address] [place] [address] documented as of this encounter [...] as of this encounter Care Teams Enterprise Records Analyst Relationship Specialty Start Date End Date Caitlyn Bowie MD [address] [address] PCP - General Internal Medicine 05/06/21 documented as of this encounter
--- OUTSIDE RECORDS SUMMARY | 2025-03-26 17:09 | XMS_ITS | Encounter Summary ---
Author Organization [facility] and [facility] Address [address] [place] [address] Care Team Providers Care Protection Mgr Name Role Phone Caitlyn Bowie MD Primary Care Provider +1- [phone] Encounter Details Date Type Department Care Team (Late st Contact Info) Description 11/19/2021 Scanned Document Cardiovascular Medicine at [address] [place] [address] Norma Renee MD [address] [place] [address] Social History Tobacco Use Types Packs/Day [...] PM EDT Tele[facility]icine [facility] at [address] [place] [address] Ronald Mills MD 240 [facility] A1 [place] [address] documented as of this encounter Visit Diagnoses Not on filedocumented in this encounter Additional Health Concerns Infection Onset Date Last Indicated Resolved Time COVID-19 03/05/2022 03/05/2022 03/15/2022 7:18 PM EDT Assessment Noted Time PHQ-9 Depression Total Score: 2 11/07/19 19 2:06 PM EDT documented as of this encounter Care Teams Protection Mgr Relationship Specialty Start Date End Date Caitlyn Bowie MD [address] [address] PCP - General Internal Medicine 05/06/21 documented as of this encounter
--- OUTSIDE RECORDS SUMMARY | 2025-03-26 17:09 | XMS_ITS | Encounter Summary ---
Author Organization [facility] Address [address] [place] [address] Care Team Providers Care Wealth Management Advisor Name Role Phone Caitlyn Bowie MD Primary Care Provider +1- [phone] Encounter Details Date Type Department Care Team (Late st Contact Info) Description 05/05/2021 Scanned Document INTERFACE DEFAULT [address] [place] [address] System, Provider Not In Social History Tobacco [...] [facility] 240 [facility] Building [address] [place] [address] Ronald Mills MD [address] [place] [address] [address] [place] [address] documented as of this encounter Visit Diagnoses Not on filedocumented in this encounter Additional Health Concerns Infection Onset Date Last Indicated Resolved Time COVID-19 03/05/2022 03/05/2022 03/15/2022 7:18 PM EDT Assessment Noted Time PHQ-9 Depression Total Score: 2 11/07/19 19 2:06 PM EDT documented as of this encounter Care Teams Wealth Management Advisor Relationship Specialty Start Date End Date Caitlyn Bowie MD [address] [address] PCP - General Internal Medicine 05/06/21 documented as of this encounter
--- OUTSIDE RECORDS SUMMARY | 2025-03-26 17:09 | XMS_ITS | Encounter Summary ---
Author Organization [facility] and [facility] Address [address] [place] [address] Care Team Providers Care Rod Puller And Coiler Name Role Phone Caitlyn Bowie MD Primary Care Provider +1- [phone] Encounter Details Date Type Department Care Team (Late st Contact Info) Description 11/18/2021 Scanned Document INTERFACE DEFAULT [address] [place] [address] System, Provider Not In Social History Tobacco [...] – [facility] 240 [facility] Building [address] [place] [address] Ronald Mills MD [address] [place] [address] [address] [place] [address] documented as of this encounter Visit Diagnoses Not on filedocumented in this encounter Additional Health Concerns Infection Onset Date Last Indicated Resolved Time COVID-19 03/05/2022 03/05/2022 03/15/2022 7:18 PM EDT Assessment Noted Time PHQ-9 Depression Total Score: 2 11/07/19 19 2:06 PM EDT documented as of this encounter Care Teams Rod Puller And Coiler Relationship Specialty Start Date End Date Caitlyn Bowie MD [address] [address] PCP - General Internal Medicine 05/06/21 documented as of this encounter
--- OUTSIDE RECORDS SUMMARY | 2025-03-26 17:09 | XMS_ITS | Encounter Summary ---
Author Organization [facility] and [facility] Address [address] [place] [address] Care Team Providers Care Valve Mechanic Name Role Phone Caitlyn Bowie MD Primary Care Provider +1- [phone] Encounter Details Date Type Department Care Team (Late st Contact Info) Description 04/16/2018 Scanned Document [facility] Health Information Management [address] [place] [address] External, Provider Social History Tobacco Use Types [...] [facility] at [facility] 240 [facility] Building [address] [place], [place] [phone] Ronald Mills MD [address] [facility] [address]1 [place] [address] documented as of this encounter Visit Diagnoses Not on filedocumented in this encounter Additional Health Concerns Infection Onset Date Last Indicated Resolved Time COVID-19 03/05/2022 03/05/2022 03/15/2022 7:18 PM EDT documented as of this encounter Care Teams Valve Mechanic Relationship Specialty Start Date End Date Caitlyn Bowie MD 3400 [facility] 1 [place] [address] PCP - General Internal Medicine 05/06/21 Henry Kelly MD Pulmonary Department 175 [facility], [address] [place] [address] Physician Pulmonary Disease 09/06/17 06/22/20 documented as of this encounter
--- OUTSIDE RECORDS SUMMARY | 2025-03-26 17:09 | XMS_ITS | Encounter Summary ---
Author Organization [facility] Address [address] [place] [address] Phone Care Team Providers Care Vp Training Name Role Phone Caitlyn Bowie MD Primary Care Provider +1- [phone] Encounter Details Date Type Department Care Team (Late Contact Info) Description 03/17/2025 Office Communication [facility] [address] [place] [address] Marina Abdi [address] [place] [phone] Social History Tobacco Use Types Packs/Day Years [...] [facility] [address] [place] [address] Rubén Ashraf MD [address] [place] [address] [place] [address] documented as of this encounter Visit Diagnoses Not on filedocumented in this encounter Care Teams Vp Training Relationship Specialty Start Date End Date Caitlyn Bowie MD [address] [place], [place] PCP - General Internal Medicine 09/24/24 documented as of this encounter
--- OUTSIDE RECORDS SUMMARY | 2025-03-26 17:09 | XMS_ITS | Encounter Summary ---
Author Organization [facility] and [facility] Address [address] [place] [address] Care Team Providers Care Shuttle Final Inspector Name Role Phone Caitlyn Bowie MD Primary Care Provider +1- [phone] Encounter Details Date Type Department Care Team (Late st Contact Info) Description 07/30/2018 Scanned Document [facility] Health Information Management [address] [place] [address] External, Provider Social History Tobacco Use Types [...] [facility] 240 [facility] Building [address] [place], [place] [phone] Ronald Mills MD [address] [place] [address] [address] [place] [address] documented as of this encounter [...] as of this encounter Care Teams Shuttle Final Inspector Relationship Specialty Start Date End Date Caitlyn Bowie MD [facility] 1 [place] [address] PCP - General Internal Medicine 05/06/21 Henry Kelly MD Pulmonary Department 175 [facility], [address] [place] [address] Physician Pulmonary Disease 09/06/17 06/22/20 documented as of this encounter
--- OUTSIDE RECORDS SUMMARY | 2025-03-26 17:09 | XMS_ITS | Encounter Summary ---
Author Organization [facility] and [facility] Address [address] [place] [address] Care Team Providers Care Installation And Service Technician Name Role Phone Caitlyn Bowie MD Primary Care Provider +1- [phone] Encounter Details Date Type Department Care Team (Late st Contact Info) Description 06/07/2021 Scanned Document Cancer Center at [address] [address] External, Provider Social History Tobacco Use Types [...] [facility] 240 [facility] Building [address] [place], [place] [phone] Ronald Mills MD [address] [place] [address] [address]1 [place] [address] documented as of this encounter Visit Diagnoses Not on filedocumented in this encounter Additional Health Concerns Infection Onset Date Last Indicated Resolved Time COVID-19 03/05/2022 03/05/2022 03/15/2022 7:18 PM EDT Assessment Noted Time PHQ-9 Depression Total Score: 2 11/07/19 19 2:06 PM EDT documented as of this encounter Care Teams Installation And Service Technician Relationship Specialty Start Date End Date Caitlyn Bowie MD [address] [address] PCP - General Internal Medicine 05/06/21 documented as of this encounter
--- OUTSIDE RECORDS SUMMARY | 2025-03-26 17:09 | XMS_ITS | Encounter Summary ---
Author Organization [facility] and [facility] Address [address] [place] [address] Care Team Providers Care Radiological Health Specialist Name Role Phone Caitlyn Bowie MD Primary Care Provider +1- [phone] Encounter Details Date Type Department Care Team (Late st Contact Info) Description 04/28/2021 Scanned Document INTERFACE DEFAULT [address] [place] [address] System, Provider Not In Social History Tobacco [...] at [facility] 240 [facility] Building [address] [place], [place] [phone] Ronald Mills MD [address] [place] [address] [address] [place] [address] documented as of this encounter [...] documented as of this encounter Care Teams Radiological Health Specialist Relationship Specialty Start Date End Date Caitlyn Bowie MD [address] [address] PCP - General Internal Medicine 05/06/21 documented as of this encounter
--- OUTSIDE RECORDS SUMMARY | 2025-03-26 17:09 | XMS_ITS | Encounter Summary ---
Author Organization [facility] Address [address] [place] [address] Care Team Providers Care Maintainer Sewer And Waterworks Name Role Phone Caitlyn Bowie MD Primary Care Provider +1- [phone] Encounter Details Date Type Department Care Team (Late st Contact Info) Description 10/15/2018 Scanned Document [facility] Health Information Management [address] [place] [address] External, Provider Social History Tobacco Use Types [...] [facility] 240 [facility] Building [address] [place], [place] [phone] Ronald Mills MD [address] [place] [address] [address] [place] [address] documented as of this encounter Visit Diagnoses Not on filedocumented in this encounter Additional Health Concerns Infection Onset Date Last Indicated Resolved Time COVID-19 03/05/2022 03/05/2022 03/15/2022 7:18 PM EDT documented as of this encounter Care Teams Maintainer Sewer And Waterworks Relationship Specialty Start Date End Date Caitlyn Bowie MD 3400 [facility] 1 [place] [address] PCP - General Internal Medicine 05/06/21 Henry Kelly MD Pulmonary Department 175 [facility], [address] [place] [address] Physician Pulmonary Disease 09/06/17 06/22/20 documented as of this encounter
--- OUTSIDE RECORDS SUMMARY | 2025-03-26 17:09 | XMS_ITS | Clinical Summary ---
Author Organization [facility] Address [address] [place] [address] Care Team Providers Care Lotus Notes Administrator Name Role Phone Caitlyn Bowie MD Primary Care Provider +1- [phone] Allergies Active Allergy Reactions Criticality Noted Date [...] Breath High 05/09/2008 Bronchospasm or Wheezing Ipratropium [place] Unknown/Patient and Family Unable to Define Medium [...] 1 capsule by mouth daily. Active B Lnyuzbb-N-Frpih Acid (STRESS 500 B-COMPLEX PO) Take 1 [...] Department Care Team Description 03/14/2025 Scanned Document [facility] Neurology Ophthalmology [address] [address] Shirley Chaidez PA-C 03/11/2025 Telephone [facility] Neurology Ophthalmology [address] [address] Yary Whitten DO Medical Complaint from Last [...] & B BLUE CROSS COMPREHENSIVE Care Teams Lotus Notes Administrator Relationship Specialty Start Date End Date Caitlyn Bowie MD 3400 [place] [address] PCP - General Internal Medicine 03/20/23
--- OUTSIDE RECORDS SUMMARY | 2025-03-26 17:09 | XMS_ITS | Encounter Summary ---
Author Organization [facility] and [facility] Address [address] [place] [address] Care Team Providers Care Preschool Teacher Name Role Phone Caitlyn Bowie MD Primary Care Provider +1- [phone] Encounter Details Date Type Department Care Team (Late st Contact Info) Description 03/14/2018 Scanned Document [facility] Health Information Management [address] [place] [address] External, Provider Social History Tobacco Use Types [...] [facility] 240 [facility] Building [address] [place], [place] [phone] Ronald Mills MD [address] [place] [address] [address] [place] [address] documented as of this encounter [...] as of this encounter Care Teams Preschool Teacher Relationship Specialty Start Date End Date Caitlyn Bowie MD 3400 [facility] 1 [place] [address] PCP - General Internal Medicine 05/06/21 Henry Kelly MD Pulmonary Department 175 [facility], [address] [place] [address] Physician Pulmonary Disease 09/06/17 06/22/20 documented as of this encounter
--- OUTSIDE RECORDS SUMMARY | 2025-03-26 17:09 | XMS_ITS | Encounter Summary ---
Author Organization [facility] and [facility] Address [address] [place] [address] Care Team Providers Care Goldbeater Name Role Phone Caitlyn Bowie MD Primary Care Provider +1- [phone] Encounter Details Date Type Department Care Team (Late st Contact Info) Description 08/07/2018 Scanned Document [facility] Health Information Management [address] [place] [address] External, Provider Social History Tobacco Use Types [...] Center at [facility] 240 [facility] Building [address] [place], [place] [phone] Ronald Mills MD [address] [place] [address] [address] [place] [address] documented as of this encounter Visit Diagnoses Not on filedocumented in this encounter Additional Health Concerns Infection Onset Date Last Indicated Resolved Time COVID-19 03/05/2022 03/05/2022 03/15/2022 7:18 PM EDT documented as of this encounter Care Teams Goldbeater Relationship Specialty Start Date End Date Caitlyn Bowie MD 3400 [facility] 1 [place] [address] PCP - General Internal Medicine 05/06/21 Henry Kelly MD Pulmonary Department 175 [facility], [address] [place] [address] Physician Pulmonary Disease 09/06/17 06/22/20 documented as of this encounter
--- OUTSIDE RECORDS SUMMARY | 2025-03-26 17:09 | XMS_ITS | Encounter Summary ---
Author Organization [facility] Address [address] [place] [address] Care Team Providers Care Enterprise Infrastructure Architect Name Role Phone Caitlyn Bowie MD Primary Care Provider +1- [phone] Encounter Details Date Type Department Care Team (Late st Contact Info) Description 01/28/2018 Scanned Document [facility] Health Information Management [address] [place] [address] External, Provider Social History Tobacco Use Types [...] [facility] 240 [facility] Building [address] [place], [place] [phone] Ronald Mills MD [address] [place] [address] [address] [place] [address] documented as of this encounter [...] as of this encounter Care Teams Enterprise Infrastructure Architect Relationship Specialty Start Date End Date Caitlyn Bowie MD [facility] 1 [place] [address] PCP - General Internal Medicine 05/06/21 Henry Kelly MD Pulmonary Department 175 [facility], [address] [place] [address] Physician Pulmonary Disease 09/06/17 06/22/20 documented as of this encounter
--- OUTSIDE RECORDS SUMMARY | 2025-03-26 17:09 | XMS_ITS | Encounter Summary ---
Author Organization [facility] Address 20 [place] [address] Care Team Providers Care Supervisor Asbestos Textile Name Role Phone Caitlyn Bowie MD Primary Care Provider +1- [phone] Encounter Details Date Type Department Care Team (Late st Contact Info) Description 03/26/2015 Scanned Document Cardiovascular Medicine at [address] [place] [address] Norma Renee MD [address] [place] [phone] Social History Tobacco Use Types Packs/Day Years [...] PM EDT Telemedicine Cancer Center at [address] [place], [place] [phone] Ronald Mills MD [address] [place] [address] [address] [place] [address] documented as of this encounter Visit Diagnoses Not on filedocumented in this encounter Additional Health Concerns Infection Onset Date Last Indicated Resolved Time COVID-19 03/05/2022 03/05/2022 03/15/2022 7:18 PM EDT documented as of this encounter Care Teams Supervisor Asbestos Textile Relationship Specialty Start Date End Date Caitlyn Bowie MD 3400 [facility] 1 [place] [address] PCP - General Internal Medicine 05/06/21 Henry Kelly MD Pulmonary Department 175 [facility], [address] [place] [address] Physician Pulmonary Disease 09/06/17 06/22/20 documented as of this encounter
--- OUTSIDE RECORDS SUMMARY | 2025-03-26 17:09 | XMS_ITS | Encounter Summary ---
Author Organization [facility] Address [address] [place] [address] Care Team Providers Care Shrimp Picker Name Role Phone Caitlyn Bowie MD Primary Care Provider +1- [phone] Encounter Details Date Type Department Care Team (Late st Contact Info) Description 03/11/2015 Scanned Document [facility] Health Information Management [address] [place] [address] External, Provider Social History Tobacco Use Types [...] [facility] 240 [facility] Building [address] [place], [place] [phone] Ronald Mills MD 240 [facility] Max [address] [place] [address] documented as of this encounter Procedures Procedure Name Priority Date/Time Associated Diagnosis Comments LAB SCAN Routine 03/11/2015 documented in this encounter Results * Lab Scan (03/11/2015) Blood specimen (specimen) us Provider External LAB BLOOD ORDERABLES Edited Re sult - Final [facility] documented in this encounter Visit Diagnoses Not on filedocumented in this encounter Additional Health Concerns Infection Onset Date Last Indicated Resolved Time COVID-19 03/05/2022 03/05/2022 03/15/2022 7:18 PM EDT documented as of this encounter Care Teams Shrimp Picker Relationship Specialty Start Date End Date Caitlyn Bowie MD 3400 [facility] 1 [place] [address] PCP - General Internal Medicine 05/06/21 Henry Kelly MD Pulmonary Department 175 [facility], [address] [place] [address] Physician Pulmonary Disease 09/06/17 06/22/20 documented as of this encounter
--- OUTSIDE RECORDS SUMMARY | 2025-03-26 17:09 | XMS_ITS | Encounter Summary ---
Author Organization [facility] Address 20 [place] [address] Care Team Providers Care Ekg Monitor Tech Name Role Phone Caitlyn Bowie MD Primary Care Provider +1- [phone] Encounter Details Date Type Department Care Team (Late st Contact Info) Description 04/03/2018 Scanned Document [facility] [address] [place] [address] Provider, historical . Social History Tobacco Use [...] [facility] at [facility] 240 [facility] Building [address] [place], [place] [address] Ronald Mills MD [address] [place] [address] [address] [place] [address] documented as of this encounter [...] documented as of this encounter Care Teams Ekg Monitor Tech Relationship Specialty Start Date End Date Caitlyn Bowie MD 3400 [facility] 1 [place] [address] PCP - General Internal Medicine 05/06/21 Henry Kelly MD Pulmonary Department 175 [facility], [address] [place] [address] Physician Pulmonary Disease 09/06/17 06/22/20 documented as of this encounter
--- OUTSIDE RECORDS SUMMARY | 2025-03-26 17:09 | XMS_ITS | Encounter Summary ---
Author Organization [facility] and [facility] Address [address] [place] [address] Care Team Providers Care Ink Maker Name Role Phone Caitlyn Bowie MD Primary Care Provider +1- [phone] Encounter Details Date Type Department Care Team (Late st Contact Info) Description 05/17/2021 Scanned Document Cancer Center at [address] [address] External, Provider Social History Tobacco Use Types [...] [facility] 240 [facility] Building [address] [place], [place] [address] Ronald Mills MD [address] [place] [address] [address] [place] [address] documented as of this encounter [...] as of this encounter Care Teams Ink Maker Relationship Specialty Start Date End Date Caitlyn Bowie MD [address] [address] PCP - General Internal Medicine 05/06/21 documented as of this encounter
--- OUTSIDE RECORDS SUMMARY | 2025-03-26 17:09 | XMS_ITS | Encounter Summary ---
Author Organization [facility] and [facility] Address [address] [place] [address] Care Team Providers Care Neonatal Specialist Name Role Phone Caitlyn Bowie MD Primary Care Provider +1- [phone] Encounter Details Date Type Department Care Team (Late st Contact Info) Description 06/26/2018 Scanned Document [facility] Health Information Management [address] [place] [address] External, Provider Social History Tobacco Use Types [...] [facility] 240 [facility] Building [address] [place], [place] [phone] Ronald Mills MD 240 [facility] A1 [place] [address] documented as of this encounter Visit Diagnoses Not on filedocumented in this encounter Additional Health Concerns Infection Onset Date Last Indicated Resolved Time COVID-19 03/05/2022 03/05/2022 03/15/2022 7:18 PM EDT documented as of this encounter Care Teams Neonatal Specialist Relationship Specialty Start Date End Date Caitlyn Bowie MD 3400 [facility] 1 [place] [address] PCP - General Internal Medicine 05/06/21 Henry Kelly MD Pulmonary Department 175 [facility], [address] [place] [address] Physician Pulmonary Disease 09/06/17 06/22/20 documented as of this encounter
--- OUTSIDE RECORDS SUMMARY | 2025-03-26 17:09 | XMS_ITS | Encounter Summary ---
Author Organization [facility] and [facility] Address [address] [place] [phone] Care Team Providers Care Manganese Breaker Name Role Phone Caitlyn Bowie MD Primary Care Provider +1- [phone] Encounter Details Date Type Department Care Team (Late st Contact Info) Description 04/18/2018 Scanned Document [facility] Health Information Management [address] [place] [address] External, Provider Social History Tobacco Use Types [...] [facility] 240 [facility] Building [address] [place], [place] [phone] Ronald Mills MD [address] [place] [address] [address]1 [place] [address] documented as of this encounter [...] 3400 [facility] 1 [place] [address] PCP - General Internal Medicine 05/06/21 Henry Kelly MD Pulmonary Department 175 [facility], [address] [place] [address] Physician Pulmonary Disease 09/06/17 06/22/20 documented as of this encounter
--- OUTSIDE RECORDS SUMMARY | 2025-03-26 17:09 | XMS_ITS | Encounter Summary ---
Author Organization [facility] and [facility] Address [address] [place] [address] Care Team Providers Care Lead Database Administrator Name Role Phone Caitlyn Bowie MD Primary Care Provider +1- [phone] Encounter Details Date Type Department Care Team (Late st Contact Info) Description 07/28/2018 Scanned Document [facility] Health Information Management [address] [place] [address] External, Provider Social History Tobacco Use Types [...] [facility] 240 [facility] Building [address] [place], [place] [phone] Ronald Mills MD 240 [facility] [address]1 [place] [address] documented as of this encounter [...] as of this encounter Care Teams Lead Database Administrator Relationship Specialty Start Date End Date Caitlyn Bowie MD [facility]0 [facility] 1 [place] [address] PCP - General Internal Medicine 05/06/21 Henry Kelly MD Pulmonary Department 175 [facility], [address] [place] [address] Physician Pulmonary Disease 09/06/17 06/22/20 documented as of this encounter
--- OUTSIDE RECORDS SUMMARY | 2025-03-26 17:09 | XMS_ITS | Encounter Summary ---
Author Organization [facility] and [facility] Address [address] [place] [address] Care Team Providers Care Drag Out Man Name Role Phone Caitlyn Bowie MD Primary Care Provider +1- [phone] Reason for Visit * Reason Comments FYI Encounter Details Date Type Department Care Team (Late st Contact Info) Description 05/24/2021 Telephone [facility] at [address] [place] [address] 2nd [place], [place] [phone] Solo Henry MD [address] [place] [phone] FYI Social History Tobacco Use Types [...] [facility] 240 [facility] Building [address] [place] [address] Ronald Mills MD 240 [facility] Max [address]1 [place] [address] documented as of this encounter Visit Diagnoses Not on filedocumented in this encounter Additional Health Concerns Infection Onset Date Last Indicated Resolved Time COVID-19 03/05/2022 03/05/2022 03/15/2022 7:18 PM EDT Assessment Noted Time PHQ-9 Depression Total Score: 2 11/07/19 19 2:06 PM EDT documented as of this encounter Care Teams Drag Out Man Relationship Specialty Start Date End Date Caitlyn Bowie MD 3400 [facility] 1 [place] [address] PCP - General Internal Medicine 05/06/21 documented as of this encounter
--- OUTSIDE RECORDS SUMMARY | 2025-03-26 17:09 | XMS_ITS | Encounter Summary ---
Author Organization [facility] and [facility] Address [address] [place] [address] Care Team Providers Care Central Lab Technician Name Role Phone Caitlyn Bowie MD Primary Care Provider +1- [phone] Encounter Details Date Type Department Care Team (Late Contact Info) Description 11/18/2021 Scanned Document [facility] Health Information Management [address] [place] [address] External, Provider Social History Tobacco Use Types [...] [facility] 240 [facility] Building [address] [place], [place] [address] Ronald Mills MD [address] [place] [address] [address] [place] [address] documented as of this encounter Visit Diagnoses Not on filedocumented in this encounter Additional Health Concerns Infection Onset Date Last Indicated Resolved Time COVID-19 03/05/2022 03/05/2022 03/15/2022 7:18 PM EDT Assessment Noted Time PHQ-9 Depression Total Score: 2 11/07/19 19 2:06 PM EDT documented as of this encounter Care Teams Central Lab Technician Relationship Specialty Start Date End Date Caitlyn Bowie MD [address] [address] PCP - General Internal Medicine 05/06/21 documented as of this encounter
--- OUTSIDE RECORDS SUMMARY | 2025-03-26 17:09 | XMS_ITS | Encounter Summary ---
Author Organization [facility] and [facility] Address [address] [place] [address] Care Team Providers Care Director Of Exhibit Development Name Role Phone Caitlyn Bowie MD Primary Care Provider +1- [phone] Encounter Details Date Type Department Care Team (Late st Contact Info) Description 01/28/2018 Scanned Document [facility] Health Information Management [address] [place] [address] External, Provider Social History Tobacco Use Types [...] [facility] at [facility] 240 [facility] Building [address] [place], [place] [phone] Ronald Mills MD 240 [facility] A1 [place] [address] documented as of this encounter Visit Diagnoses Not on filedocumented in this encounter Additional Health Concerns Infection Onset Date Last Indicated Resolved Time COVID-19 03/05/2022 03/05/2022 03/15/2022 7:18 PM EDT documented as of this encounter Care Teams Director Of Exhibit Development Relationship Specialty Start Date End Date Caitlyn Bowie MD 3400 [facility] 1 [place] [address] PCP - General Internal Medicine 05/06/21 Henry Kelly MD Pulmonary Department 175 [facility], [address] [place] [address] Physician Pulmonary Disease 09/06/17 06/22/20 documented as of this encounter
--- OUTSIDE RECORDS SUMMARY | 2025-03-26 17:09 | XMS_ITS | Encounter Summary ---
Author Organization [facility] and [facility] Address [address] [place] [address] Care Team Providers Care Push Bench Operator Helper Name Role Phone Caitlyn Bowie MD Primary Care Provider +1- [phone] Encounter Details Date Type Department Care Team (Late st Contact Info) Description 04/24/2021 Scanned Document INTERFACE DEFAULT [address] [place] [address] System, Provider Not In Social History Tobacco [...] [facility] 240 [facility] Building [address] [place], [place] [address] Ronald Mills MD [address] [place] [address] [address] [place] [address] documented as of this encounter [...] documented as of this encounter Care Teams Push Bench Operator Helper Relationship Specialty Start Date End Date Caitlyn Bowie MD [address] [address] PCP - General Internal Medicine 05/06/21 documented as of this encounter
--- OUTSIDE RECORDS SUMMARY | 2025-03-26 17:09 | XMS_ITS | Encounter Summary ---
Author Organization [facility] and [facility] Address [address] [place] [address] Care Team Providers Care Technical Writing Lead/Mgr Name Role Phone Caitlyn Bowie MD Primary Care Provider +1- [phone] Encounter Details Date Type Department Care Team (Late st Contact Info) Description 01/26/2018 Scanned Document [facility] Health Information Management [address] [place] [address] External, Provider Social History Tobacco Use Types [...] [facility] 240 [facility] Building [address] [place], [place] [address] Ronald Mills MD [address] [place] [address] [address] [place] [address] documented as of this encounter [...] as of this encounter Care Teams Technical Writing Lead/Mgr Relationship Specialty Start Date End Date Caitlyn Bowie MD 3400 [facility] 1 [place] [address] PCP - General Internal Medicine 05/06/21 Henry Kelly MD Pulmonary Department 175 [facility], [address] [place] [address] Physician Pulmonary Disease 09/06/17 06/22/20 documented as of this encounter
--- OUTSIDE RECORDS SUMMARY | 2025-03-26 17:09 | XMS_ITS | Encounter Summary ---
Author Organization [facility] and [facility] Address [address] [place] [address] Care Team Providers Care Floor Inspector Name Role Phone Caitlyn Bowie MD Primary Care Provider +1- [phone] Encounter Details Date Type Department Care Team (Late st Contact Info) Description 04/29/2021 Scanned Document INTERFACE DEFAULT [address] [place] [address] System, Provider Not In Social History Tobacco [...] [facility] Building [address] [place] [address] Ronald Mills MD [address] [place] [address] [address] [place] [address] documented as of this encounter [...] as of this encounter Care Teams Floor Inspector Relationship Specialty Start Date End Date Caitlyn Bowie MD [address] [address] PCP - General Internal Medicine 05/06/21 documented as of this encounter
--- OUTSIDE RECORDS SUMMARY | 2025-03-26 17:09 | XMS_ITS | Encounter Summary ---
Author Organization [facility] and [facility] Address [address] [place] [address] Care Team Providers Care Technology Services Manager Name Role Phone Caitlyn Bowie MD Primary Care Provider +1- [phone] Encounter Details Date Type Department Care Team (Late st Contact Info) Description 06/08/2021 Scanned Document INTERFACE DEFAULT [address] [place] [address] System, Provider Not In Social History Tobacco [...] [facility] Building [address] [place], [place] [phone] Ronald Mills MD [address] [place] [address] [address] [place] [address] documented as of this encounter [...] as of this encounter Care Teams Technology Services Manager Relationship Specialty Start Date End Date Caitlyn Bowie MD [address] [place] [address] PCP - General Internal Medicine 05/06/21 documented as of this encounter
--- OUTSIDE RECORDS SUMMARY | 2025-03-26 17:09 | XMS_ITS | Encounter Summary ---
Author Organization [facility] and [facility] Address [address] [place] [address] Care Team Providers Care Senior Microsoft Consultant Name Role Phone Caitlyn Bowie MD Primary Care Provider +1- [phone] Encounter Details Date Type Department Care Team (Late st Contact Info) Description 10/08/2021 Scanned Document INTERFACE DEFAULT [address] [place] [address] System, Provider Not In Social History Tobacco [...] [facility] at [facility] 240 [facility] Building [address] [place], [place] [address] Ronald Mills MD [address] [place] [address] [address] [place] [address] documented as of this encounter [...] as of this encounter Care Teams Senior Microsoft Consultant Relationship Specialty Start Date End Date Caitlyn Bowie MD [address] [address] PCP - General Internal Medicine 05/06/21 documented as of this encounter
--- OUTSIDE RECORDS SUMMARY | 2025-03-26 17:09 | XMS_ITS | Encounter Summary ---
Author Organization [facility] and [facility] Address [address] [place] [address] Care Team Providers Care Cement Finisher Helper Name Role Phone Caitlyn Bowie MD Primary Care Provider +1- [phone] Encounter Details Date Type Department Care Team (Late st Contact Info) Description 12/28/2021 Scanned Document INTERFACE DEFAULT [address] [place] [address] System, Provider Not In Social History Tobacco [...] [facility] 240 [facility] Building [address] [place] [address] Ronald Mills MD [address] [place] [address] [address]1 [place] [address] documented as of this encounter Visit Diagnoses Not on filedocumented in this encounter Additional Health Concerns Infection Onset Date Last Indicated Resolved Time COVID-19 03/05/2022 03/05/2022 03/15/2022 7:18 PM EDT Assessment Noted Time PHQ-9 Depression Total Score: 2 11/07/19 19 2:06 PM EDT documented as of this encounter Care Teams Cement Finisher Helper Relationship Specialty Start Date End Date Caitlyn Bowie MD [address] [address] PCP - General Internal Medicine 05/06/21 documented as of this encounter
--- OUTSIDE RECORDS SUMMARY | 2025-03-26 17:09 | XMS_ITS | Encounter Summary ---
Author Organization [facility] and [facility] Address 20 [place] [address] Care Team Providers Care Compounder Flavorings Name Role Phone Caitlyn Bowie MD Primary Care Provider +1- [phone] Encounter Details Date Type Department Care Team (Late st Contact Info) Description 02/19/2015 Scanned Document COUNTS INCLUDE 234 [facility]EDS AT [facility] Health Information Management [address] [place] [address] External, Provider Social History Tobacco Use Types [...] [facility] 240 [facility] Building [address] [place], [place] [phone] Ronald Mills MD 240 [facility] Max A1 [place] [address] documented as of this encounter Procedures Procedure Name Priority Date/Time Associated Diagnosis Comments LAB SCAN Routine 02/19/2015 documented in this encounter Results * Lab Scan (02/19/2015) Blood specimen (specimen) us Provider External LAB BLOOD ORDERABLES Final Res ult [facility] documented in this encounter Visit Diagnoses Not on filedocumented in this encounter Additional Health Concerns Infection Onset Date Last Indicated Resolved Time COVID-19 03/05/2022 03/05/2022 03/15/2022 7:18 PM EDT documented as of this encounter Care Teams Compounder Flavorings Relationship Specialty Start Date End Date Caitlyn Bowie MD 3400 [facility] 1 [place] [address] PCP - General Internal Medicine 05/06/21 Henry Kelly MD Pulmonary Department 175 [facility], [address] [place] [address] Physician Pulmonary Disease 09/06/17 06/22/20 documented as of this encounter
--- OUTSIDE RECORDS SUMMARY | 2025-03-26 17:10 | XMS_ITS | Encounter Summary ---
Author Organization [facility] and [facility] Address [address] [place] [address] Care Team Providers Care Barrel Roller Name Role Phone Caitlyn Bowie MD Primary Care Provider +1- [phone] Reason for Visit * Reason Comments Advice Only mass Encounter Details Date Type Department Care Team (Late st Contact Info) Description 09/06/2021 Telephone [facility] at [address] [phone] Ronald Mills MD [address] [place] [address] Advice Only (mass) Social History Tobacco [...] at [facility] 240 [facility] Building [address] [place], [place] [address] Ronald Mills MD 240 [facility] Max [address]1 [place] [address] documented as of this encounter Visit Diagnoses Not on filedocumented in this encounter Additional Health Concerns Infection Onset Date Last Indicated Resolved Time COVID-19 03/05/2022 03/05/2022 03/15/2022 7:18 PM EDT Assessment Noted Time PHQ-9 Depression Total Score: 2 11/07/19 19 2:06 PM EDT documented as of this encounter Care Teams Barrel Roller Relationship Specialty Start Date End Date Caitlyn Bowie MD [address] [address] PCP - General Internal Medicine 05/06/21 documented as of this encounter
--- OUTSIDE RECORDS SUMMARY | 2025-03-26 17:10 | XMS_ITS | Encounter Summary ---
Author Organization [facility] and [facility] Address 20 [place] [address] Care Team Providers Care Hobbing Machine Operator Name Role Phone Caitlyn Bowie MD Primary Care Provider +1- [phone] Encounter Details Date Type Department Care Team (Late st Contact Info) Description 07/08/2022 Scanned Document Cardiovascular Medicine at [address] [place] [phone] Norma Renee MD [address] [place] [phone] Social History Tobacco Use Types Packs/Day Years [...] 4:00 PM EDT Telemedicine Cancer Center at [address] [place] [address] Ronald Mills MD [address] [place] [address] [address]1 [place] [address] documented as of this encounter Visit Diagnoses Not on filedocumented in this encounter Additional Health Concerns Assessment Noted Time PHQ-9 Depression Total Score: 2 11/07/19 19 2:06 PM EDT documented as of this encounter Care Teams Hobbing Machine Operator Relationship Specialty Start Date End Date Caitlyn Bowie MD [address] [address] PCP - General Internal Medicine 05/06/21 documented as of this encounter
--- OUTSIDE RECORDS SUMMARY | 2025-03-26 17:10 | XMS_ITS | Encounter Summary ---
Author Organization [facility] and [facility] Address [address] [place] [phone] Care Team Providers Care Laboratory Technician Name Role Phone Caitlyn Bowie MD Primary Care Provider +1- [phone] Encounter Details Date Type Department Care Team (Late st Contact Info) Description 09/07/2021 Scanned Document INTERFACE DEFAULT [address] [place] [address] System, Provider Not In Social History Tobacco [...] [facility] 240 [facility] Building [address] [place], [place] [address] Ronald Mills MD [address] [place] [address] [address] [place] [address] documented as of this encounter [...] as of this encounter Care Teams Laboratory Technician Relationship Specialty Start Date End Date Caitlyn Bowie MD [address] [address] PCP - General Internal Medicine 05/06/21 documented as of this encounter
--- OUTSIDE RECORDS SUMMARY | 2025-03-26 17:10 | XMS_ITS | Encounter Summary ---
Author Organization [facility] and [facility] Address [address] [place] [address] Care Team Providers Care Property Utilization Manager Name Role Phone Caitlyn Bowie MD Primary Care Provider +1- [phone] Encounter Details Date Type Department Care Team (Late st Contact Info) Description 09/01/2023 Scanned Document INTERFACE DEFAULT [address] [place] [address] System, Provider Not In Social History Tobacco [...] [facility] 240 [facility] Building [address] [place] [address] Ronald Mills MD [address] [place] [address] [address]1 [place] [address] documented as of this encounter Visit Diagnoses Not on filedocumented in this encounter Additional Health Concerns Assessment Noted Time PHQ-9 Depression Total Score: 2 11/07/19 19 2:06 PM EDT documented as of this encounter Care Teams Property Utilization Manager Relationship Specialty Start Date End Date Caitlyn Bowie MD [address] [address] PCP - General Internal Medicine 05/06/21 documented as of this encounter
--- OUTSIDE RECORDS SUMMARY | 2025-03-26 17:10 | XMS_ITS | Encounter Summary ---
Author Organization [facility] and [facility] Address 20 [place] [address] Care Team Providers Care Contracting Executive Name Role Phone Caitlyn Bowie MD Primary Care Provider +1- [phone] Encounter Details Date Type Department Care Team (Late st Contact Info) Description 01/31/2023 Abstract [facility] 35 [facility]8 [place] [address] Shilpi Romero, AVELINO Social History Tobacco Use [...] [facility] Building [address] [place] [address] Ronald Mills MD [address] [place] [address] [address]1 [place] [address] documented as of this encounter Visit Diagnoses Not on filedocumented in this encounter Additional Health Concerns Assessment Noted Time PHQ-9 Depression Total Score: 2 11/07/19 19 2:06 PM EDT documented as of this encounter Care Teams Contracting Executive Relationship Specialty Start Date End Date Caitlyn Bowie MD [address] [address] PCP - General Internal Medicine 05/06/21 documented as of this encounter
--- OUTSIDE RECORDS SUMMARY | 2025-03-26 17:10 | XMS_ITS | Encounter Summary ---
Author Organization [facility] and [facility] Address [address] [place] [phone] Care Team Providers Care Director Post Name Role Phone Caitlyn Bowie MD Primary Care Provider +1- [phone] Encounter Details Date Type Department Care Team (Late st Contact Info) Description 06/08/2022 Scanned Document INTERFACE DEFAULT [address] [place] [address] System, Provider Not In Social History Tobacco [...] [facility] 240 [facility] Building [address] [place], [place] [phone] Ronald Mills MD [address] [place] [address] [address] [place] [address] documented as of this encounter [...] End Date Caitlyn Bowie MD [address] [address] PCP - General Internal Medicine 05/06/21 documented as of this encounter
--- OUTSIDE RECORDS SUMMARY | 2025-03-26 17:10 | XMS_ITS | Encounter Summary ---
Author Organization [facility] and [facility] Address [address] [place] [address] Care Team Providers Care Gi Asst Name Role Phone Caitlyn Bowie MD Primary Care Provider +1- [phone] Encounter Details Date Type Department Care Team (Late st Contact Info) Description 08/23/2022 Abstract Cardiovascular Medicine at [address] 2nd [place] [address] Norma Renee MD [address] [place] [phone] Social History Tobacco Use Types Packs/Day Years [...] PM EDT Telemedicine Cancer Center at [address] [place] [address] Ronald Mills MD [address] [place] [address] [address] [place] [address] documented as of this encounter Visit Diagnoses Not on filedocumented in this encounter Additional Health Concerns Assessment Noted Time PHQ-9 Depression Total Score: 2 11/07/19 19 2:06 PM EDT documented as of this encounter Care Teams Gi Asst Relationship Specialty Start Date End Date Caitlyn Bowie MD [address] [address] PCP - General Internal Medicine 05/06/21 documented as of this encounter
--- OUTSIDE RECORDS SUMMARY | 2025-03-26 17:10 | XMS_ITS | Encounter Summary ---
Author Organization [facility] and [facility] Address [address] [place] [address] Care Team Providers Care Burr Grinder Name Role Phone Caitlyn Bowie MD Primary Care Provider +1- [phone] Encounter Details Date Type Department Care Team (Late st Contact Info) Description 07/28/2022 Scanned Document Onco-Oncology Program at [address] [place] [address] Norma Renee MD [address] [place] [address] 2 [place] [address] Social History Tobacco Use Types [...] PM EDT Tele[facility]icine [facility] at [address] [place], [place] [phone] Ronald Mills MD 240 [facility] A1 [place] [address] documented as of this encounter Visit Diagnoses Not on filedocumented in this encounter Additional Health Concerns Assessment Noted Time PHQ-9 Depression Total Score: 2 11/07/19 19 2:06 PM EDT documented as of this encounter Care Teams Burr Grinder Relationship Specialty Start Date End Date Caitlyn Bowie MD [address] [phone] PCP - General Internal Medicine 05/06/21 documented as of this encounter
--- OUTSIDE RECORDS SUMMARY | 2025-03-26 17:10 | XMS_ITS | Encounter Summary ---
Author Organization [facility] and [facility] Address [address] [place] [address] Care Team Providers Care Adjustment Clerk Name Role Phone Caitlyn Bowie MD Primary Care Provider +1- [phone] Encounter Details Date Type Department Care Team (Late st Contact Info) Description 06/21/2022 Scanned Document INTERFACE DEFAULT [address] [place] [address] System, Provider Not In Social History Tobacco [...] Part Of [facility] 240 [facility] Building [address] [place], [place] [phone] Ronald Mills MD [address] [place] [address] [address] [place] [address] documented as of this encounter [...] documented as of this encounter Care Teams Adjustment Clerk Relationship Specialty Start Date End Date Caitlyn Bowie MD [address] [address] PCP - General Internal Medicine 05/06/21 documented as of this encounter
--- OUTSIDE RECORDS SUMMARY | 2025-03-26 17:10 | XMS_ITS | Encounter Summary ---
Author Organization [facility] and [facility] Address [address] [place] [address] Care Team Providers Care Window Glass Cutter Off Name Role Phone Caitlyn Bowie MD Primary Care Provider +1- [phone] Encounter Details Date Type Department Care Team (Late st Contact Info) Description 10/24/2022 Scanned Document INTERFACE DEFAULT [address] [place] [address] System, Provider Not In Social History Tobacco [...] Cancer Center at [facility] 240 [facility] [place] Building [address] [place], [place] [phone] Ronald Mills MD [address] [place] [address] [address] [place] [address] documented as of [...] as of this encounter Care Teams Window Glass Cutter Off Relationship Specialty Start Date End Date Caitlyn Bowie MD [facility] [address] [address] PCP - General Internal Medicine 05/06/21 documented as of this encounter
--- OUTSIDE RECORDS SUMMARY | 2025-03-26 17:10 | XMS_ITS | Encounter Summary ---
Author Organization [facility] and [facility] Address [address] [place] [address] Care Team Providers Care Gas Fitter Apprentice Name Role Phone Caitlyn Bowie MD Primary Care Provider +1- [phone] Encounter Details Date Type Department Care Team (Late st Contact Info) Description 06/24/2022 Scanned Document INTERFACE DEFAULT [address] [place] [address] System, Provider Not In Social History Tobacco [...] at [facility] 240 [facility] Building [address] [place], [place] [phone] Ronald Mills MD [address] [place] [address] [address] [place] [address] documented as of this encounter [...] of this encounter Care Teams Gas Fitter Apprentice Relationship Specialty Start Date End Date Caitlyn Bowie MD [address] [address] PCP - General Internal Medicine 05/06/21 documented as of this encounter
--- OUTSIDE RECORDS SUMMARY | 2025-03-26 17:10 | XMS_ITS | Encounter Summary ---
Author Organization [facility] Address [address] [place] [address] Care Team Providers Care Target Aircraft Controller Name Role Phone Pcp, No Primary Care Provider Brennan Mario MD Primary Care Provider [phone] Caitlyn Bowie MD Primary Care Provider +1- [phone] Encounter Details Date Type Department Care Team (Late st Contact Info) Description 01/04/2022 Scanned Document [facility] Neurology Ophthalmology [address] [address] Yary Whitten DO [address] [place] [address] Social History Tobacco Use Types Packs/Day [...] on filedocumented in this encounter Care Teams Target Aircraft Controller Relationship Specialty Start Date End Date Pcp, No PCP - General General Medicine 10/04/21 07/18/22 Brennan Burnett MD [address] [place] [address] PCP - General 07/19/22 03/19/23 Caitlyn Bowie MD 3400 [place] [address] PCP - General Internal Medicine 03/20/23 documented as of this encounter
--- OUTSIDE RECORDS SUMMARY | 2025-03-26 17:10 | XMS_ITS | Encounter Summary ---
Author Organization [facility] Address [address] [place] [address] [address] [place] [address] Phone Care Team Providers Care Inventory Control Clerk Name Role Phone Caitlyn Bowie MD Primary Care Provider +1- [phone] Encounter Details Date Type Department Care Team (Late st Contact Info) Description 08/30/2024 Abstract [facility] 2447 [facility] [address] [place] [address] Adalgisa Whitney MD [address] [place] [address] 202 [place] [address] Social History Tobacco Use Types [...] PM EDT Telemedicine Cancer Center at [address] [place] [address] Ronald Mills MD [address] [place] [phone] documented as of this encounter Visit Diagnoses Not on filedocumented in this encounter Additional Health Concerns Assessment Noted Time PHQ-9 Depression Total Score: 2 11/07/19 19 2:06 PM EDT documented as of this encounter Care Teams Inventory Control Clerk Relationship Specialty Start Date End Date Caitlyn Bowie MD [address] [address] PCP - General Internal Medicine 05/06/21 documented as of this encounter
--- OUTSIDE RECORDS SUMMARY | 2025-03-26 17:10 | XMS_ITS | Encounter Summary ---
Author Organization [facility] and [facility] Address [address] [place] [address] Care Team Providers Care Peoplesoft Developer Name Role Phone Caitlyn Bowie MD Primary Care Provider +1- [phone] Encounter Details Date Type Department Care Team (Late st Contact Info) Description 06/20/2022 Scanned Document INTERFACE DEFAULT [address] [place] [address] System, Provider Not In Social History Tobacco [...] Cancer Center at [facility] 240 [facility] Building [address] [place], [place] [phone] Ronald Mills MD [address] [place] [address] [address] [place] [address] documented as of this encounter [...] as of this encounter Care Teams Peoplesoft Developer Relationship Specialty Start Date End Date Caitlyn Bowie MD [facility] [address] [address] PCP - General Internal Medicine 05/06/21 documented as of this encounter
--- OUTSIDE RECORDS SUMMARY | 2025-03-26 17:10 | XMS_ITS | Encounter Summary ---
Author Organization [facility] and [facility] Address [address] [place] [address] Care Team Providers Care Hand Polisher Name Role Phone Caitlyn Bowie MD Primary Care Provider +1- [phone] Encounter Details Date Type Department Care Team (Late st Contact Info) Description 09/10/2021 Scanned Document Cardiovascular Medicine at [address] [place] [phone] Norma Renee MD [address] [place] [phone] Social History Tobacco Use Types Packs/Day Years [...] PM EDT Telemedicine Cancer Center at [address] [place] [address] Ronald Mills MD [address] [place] [address] [address] [place] [address] documented as of this encounter Visit Diagnoses Not on filedocumented in this encounter Additional Health Concerns Infection Onset Date Last Indicated Resolved Time COVID-19 03/05/2022 03/05/2022 03/15/2022 7:18 PM EDT Assessment Noted Time PHQ-9 Depression Total Score: 2 11/07/19 19 2:06 PM EDT documented as of this encounter Care Teams Hand Polisher Relationship Specialty Start Date End Date Caitlyn Bowie MD [address] [address] PCP - General Internal Medicine 05/06/21 documented as of this encounter
--- OUTSIDE RECORDS SUMMARY | 2025-03-26 17:10 | XMS_ITS | Encounter Summary ---
Author Organization [facility] and [facility] Address [address] [place] [address] Care Team Providers Care Website Admin Name Role Phone Caitlyn Bowie MD Primary Care Provider +1- [phone] Encounter Details Date Type Department Care Team (Late st Contact Info) Description 07/06/2021 Scanned Document INTERFACE DEFAULT [address] [place] [address] System, Provider Not In Social History Tobacco [...] Cancer Center at [facility] 240 [facility] Building [address] [place] [address] Ronald Mills MD [address] [place] [address] [address]1 [place] [address] documented as of this encounter Visit Diagnoses Not on filedocumented in this encounter Additional Health Concerns Infection Onset Date Last Indicated Resolved Time COVID-19 03/05/2022 03/05/2022 03/15/2022 7:18 PM EDT Assessment Noted Time PHQ-9 Depression Total Score: 2 11/07/19 19 2:06 PM EDT documented as of this encounter Care Teams Website Admin Relationship Specialty Start Date End Date Caitlyn Bowie MD [address] [address] PCP - General Internal Medicine 05/06/21 documented as of this encounter
--- OUTSIDE RECORDS SUMMARY | 2025-03-26 17:10 | XMS_ITS | Encounter Summary ---
Author Organization [facility] and [facility] Address [address] [place] [address] Care Team Providers Care Transit Manager Name Role Phone Caitlyn Bowie MD Primary Care Provider +1- [phone] Encounter Details Date Type Department Care Team (Late st Contact Info) Description 07/07/2021 Scanned Document INTERFACE DEFAULT [address] [place] [address] System, Provider Not In Social History Tobacco [...] Center at [facility] 240 [facility] Building [address] [place] [address] Ronald Mills MD [address] [place] [address] [address]1 [place] [address] documented as of this encounter Visit Diagnoses Not on filedocumented in this encounter Additional Health Concerns Infection Onset Date Last Indicated Resolved Time COVID-19 03/05/2022 03/05/2022 03/15/2022 7:18 PM EDT Assessment Noted Time PHQ-9 Depression Total Score: 2 11/07/19 19 2:06 PM EDT documented as of this encounter Care Teams Transit Manager Relationship Specialty Start Date End Date Caitlyn Bowie MD [address] [address] PCP - General Internal Medicine 05/06/21 documented as of this encounter
--- OUTSIDE RECORDS SUMMARY | 2025-03-26 17:10 | XMS_ITS | Encounter Summary ---
Author Organization [facility] and [facility] Address [address] [place] [address] Care Team Providers Care Surgical Scrub Technologist Name Role Phone Caitlyn Bowie MD Primary Care Provider +1- [phone] Encounter Details Date Type Department Care Team (Late st Contact Info) Description 09/02/2021 Scanned Document INTERFACE DEFAULT [address] [place] [address] System, Provider Not In Social History Tobacco [...] at [facility] 240 [facility] Building [address] [place], [place] [phone] Ronald Mills MD [address] [place] [address] [address] [place] [address] documented as of this encounter [...] as of this encounter Care Teams Surgical Scrub Technologist Relationship Specialty Start Date End Date Caitlyn Bowie MD [address] [address] PCP - General Internal Medicine 05/06/21 documented as of this encounter
--- OUTSIDE RECORDS SUMMARY | 2025-03-26 17:10 | XMS_ITS | Encounter Summary ---
Author Organization [facility] Address [address] [place] [address] Care Team Providers Care Central Scheduler Name Role Phone Caitlyn Bowie MD Primary Care Provider +1- [phone] Encounter Details Date Type Department Care Team (Late st Contact Info) Description 06/23/2022 Scanned Document INTERFACE DEFAULT [address] [place] [address] System, Provider Not In Social History Tobacco [...] [facility] [address] [place] [address] Ronald Mills MD [address] [place] [address] [address] [place] [address] documented as of this encounter Visit Diagnoses Not on filedocumented in this encounter Additional Health Concerns Assessment Noted Time PHQ-9 Depression Total Score: 2 11/07/19 19 2:06 PM EDT documented as of this encounter Care Teams Central Scheduler Relationship Specialty Start Date End Date Caitlyn Bowie MD [address] [address] PCP - General Internal Medicine 05/06/21 documented as of this encounter
--- OUTSIDE RECORDS SUMMARY | 2025-03-26 17:10 | XMS_ITS | Encounter Summary ---
Author Organization [facility] Address [address] [place] [address] Phone Care Team Providers Care Pipe Washer Name Role Phone Caitlyn Bowie MD Primary Care Provider +1- [phone] Encounter Details Date Type Department Care Team (Late st Contact Info) Description 10/10/2024 Documentation Only [facility] [address] [place] [address] Ron Taylor [place] [address] [place] [address] Social History Tobacco Use Types [...] Visit [facility] [address] [place] [address] Rubén Ashraf MD [address] [place] [address] [place] [address] documented as of this encounter Visit Diagnoses Not on filedocumented in this encounter Care Teams Pipe Washer Relationship Specialty Start Date End Date Caitlyn Bowie MD [address]00 [place] PCP - General Internal Medicine 09/24/24 documented as of this encounter
--- OUTSIDE RECORDS SUMMARY | 2025-03-26 17:10 | XMS_ITS | Encounter Summary ---
Author Organization [facility] and [facility] Address [address] [place] [address] Care Team Providers Care Data Processor Name Role Phone Caitlyn Bowie MD Primary Care Provider +1- [phone] Encounter Details Date Type Department Care Team (Late st Contact Info) Description 07/22/2021 Scanned Document INTERFACE DEFAULT [address] [place] [address] System, Provider Not In Social History Tobacco [...] Center at [facility] 240 [facility] Building [address] [place], [place] [phone] Ronald Mills MD [address] [place] [address] [address]1 [place] [address] documented as of this encounter [...] as of this encounter Care Teams Data Processor Relationship Specialty Start Date End Date Caitlyn Bowei MD [address] [address] PCP - General Internal Medicine 05/06/21 documented as of this encounter
--- OUTSIDE RECORDS SUMMARY | 2025-03-26 17:10 | XMS_ITS | Encounter Summary ---
Author Organization [facility] and [facility] Address [address] [place] [address] Care Team Providers Care Brick Extruder Operator Name Role Phone Caitlyn Bowie MD Primary Care Provider +1- [phone] Encounter Details Date Type Department Care Team (Late st Contact Info) Description 12/23/2022 Scanned Document INTERFACE DEFAULT [address] [place] [address] System, Provider Not In Social History Tobacco [...] Cancer Center at [facility] 240 [facility] Building [address] [place] [address] Ronald Mills MD [address] [place] [address] [address]1 [place] [address] documented as of this encounter Visit Diagnoses Not on filedocumented in this encounter Additional Health Concerns Assessment Noted Time PHQ-9 Depression Total Score: 2 11/07/19 19 2:06 PM EDT documented as of this encounter Care Teams Brick Extruder Operator Relationship Specialty Start Date End Date Caitlyn Bowie MD [address] [address] PCP - General Internal Medicine 05/06/21 documented as of this encounter
--- OUTSIDE RECORDS SUMMARY | 2025-03-26 17:10 | XMS_ITS | Encounter Summary ---
Author Organization [facility] Address [address] [place] [address] Care Team Providers Care Oncology Technician Name Role Phone Caitlyn Bowie MD Primary Care Provider +1- [phone] Encounter Details Date Type Department Care Team (Late st Contact Info) Description 06/28/2022 Scanned Document INTERFACE DEFAULT [address] [place] [address] System, Provider Not In Social History [...] [facility] Building [address] [place], [place] [phone] Ronald Mills MD [address] [place] [address] [address] [place] [address] documented as of this encounter [...] as of this encounter Care Teams Oncology Technician Relationship Specialty Start Date End Date Caitlyn Bowie MD [address] [address] PCP - General Internal Medicine 05/06/21 documented as of this encounter
--- OUTSIDE RECORDS SUMMARY | 2025-03-26 17:10 | XMS_ITS | Encounter Summary ---
Author Organization [facility] and [facility] Address [address] [place] [address] Care Team Providers Care Assessment Coordinator Name Role Phone Caitlyn Bowie MD Primary Care Provider +1- [phone] Encounter Details Date Type Department Care Team (Late st Contact Info) Description 06/27/2022 Scanned Document INTERFACE DEFAULT [address] [place] [address] System, Provider Not In Social History Tobacco [...] Cancer Center at [facility] 240 [facility] Building [address] [place], [place] [phone] Ronald Mills MD [address] [place] [address] [address] [place] [address] documented as of this encounter [...] as of this encounter Care Teams Assessment Coordinator Relationship Specialty Start Date End Date Caitlyn Bowie MD [facility] [address] [address] PCP - General Internal Medicine 05/06/21 documented as of this encounter
--- OUTSIDE RECORDS SUMMARY | 2025-03-26 17:10 | XMS_ITS | Encounter Summary ---
Author Organization [facility] and [facility] Address [address] [place] [address] Care Team Providers Care Flue Lining Dipper Name Role Phone Caitlyn Bowie MD Primary Care Provider +1- [phone] Encounter Details Date Type Department Care Team (Late st Contact Info) Description 01/02/2024 Scanned Document INTERFACE DEFAULT [address] [place] [address] System, Provider Not In Social History Tobacco [...] [facility] 240 [facility] Building [address] [place], [place] [phone] Ronald Mills MD [address] [place] [address] [address] [place] [address] documented as of this [...] documented as of this encounter Care Teams Flue Lining Dipper Relationship Specialty Start Date End Date Caitlyn Bowie MD [address] [address] PCP - General Internal Medicine 05/06/21 documented as of this encounter
--- OUTSIDE RECORDS SUMMARY | 2025-03-26 17:11 | XMS_ITS | Encounter Summary ---
Author Organization [facility] and [facility] Address [address] [place] [address] Care Team Providers Care Conference Manager Name Role Phone Caitlyn Bowie MD Primary Care Provider +1- [phone] Encounter Details Date Type Department Care Team (Late st Contact Info) Description 12/31/2015 Scanned Document Electrophysiology & Cardiac Arrhythmia Program [address] [place] [address] External, Provider Social History Tobacco Use Types [...] at [facility] 240 [facility] Building [address] [place], [place] [phone] Ronald Mills MD [address] [place] [address] [address] [place] [address] documented as of this encounter Procedures Procedure Name Priority Date/Time Associated Diagnosis Comments LAB SCAN Routine 12/31/2015 documented in this encounter Results * Lab Scan (12/31/2015) Blood specimen (specimen) us Provider External LAB BLOOD ORDERABLES Final Res ult Performing Organization Address City/State/[facility] Co de Phone Number [facility] documented in this encounter Visit Diagnoses Not on filedocumented in this encounter Additional Health Concerns Infection Onset Date Last Indicated Resolved Time COVID-19 03/05/2022 03/05/2022 03/15/2022 7:18 PM EDT documented as of this encounter Care Teams Conference Manager Relationship Specialty Start Date End Date Caitlyn Bowie MD 3400 [facility] 1 [place] [address] PCP - General Internal Medicine 05/06/21 Henry Kelly MD Pulmonary Department [address] [facility] [place] [address] Physician Pulmonary Disease 09/06/17 06/22/20 documented as of this encounter
--- OUTSIDE RECORDS SUMMARY | 2025-03-26 17:11 | XMS_ITS | Encounter Summary ---
Author Organization [facility] and [facility] Address [address] [place] [address] Care Team Providers Care Geologist Name Role Phone Caitlyn Bowie MD Primary Care Provider +1- [phone] Encounter Details Date Type Department Care Team (Late st Contact Info) Description 08/28/2015 Scanned Document [facility] Health Information Management [address] [place] [address] External, Provider Social History Tobacco Use Types [...] [facility] [address] [facility] [address] [place], [place] [id number] Ronald Mills MD 240 [facility] A1 [place] [address] documented as of this encounter Visit Diagnoses Not on filedocumented in this encounter Additional Health Concerns Infection Onset Date Last Indicated Resolved Time COVID-19 03/05/2022 03/05/2022 03/15/2022 7:18 PM EDT documented as of this encounter Care Teams Geologist Relationship Specialty Start Date End Date Caitlyn Bowie MD 3400 [facility] 1 [place] [address] PCP - General Internal Medicine 05/06/21 Henry Kelly MD Pulmonary Department 175 [facility], [address] [place] [address] Physician Pulmonary Disease 09/06/17 06/22/20 documented as of this encounter
--- OUTSIDE RECORDS SUMMARY | 2025-03-26 17:11 | XMS_ITS | Encounter Summary ---
Author Organization [facility] and [facility] Address [address] [place] [address] Care Team Providers Care Net Applications Developer Name Role Phone Caitlyn Bowie MD Primary Care Provider +1- [phone] Encounter Details Date Type Department Care Team (Late st Contact Info) Description 05/02/2022 Scanned Document INTERFACE DEFAULT [address] [place] [address] System, Provider Not In Social History Tobacco [...] at [facility] 240 [facility] [address] [place] [address] Ronald Mills MD [address] [place] [address] [address] [place] [address] documented as of this encounter [...] as of this encounter Care Teams Net Applications Developer Relationship Specialty Start Date End Date Caitlyn Bowie MD [address] [address] PCP - General Internal Medicine 05/06/21 documented as of this encounter
--- OUTSIDE RECORDS SUMMARY | 2025-03-26 17:11 | XMS_ITS | Encounter Summary ---
Author Organization [facility] Address [address] [place] [address] Care Team Providers Care Soda Fountain Clerk Name Role Phone Caitlyn Bowie MD Primary Care Provider +1- [phone] Encounter Details Date Type Department Care Team (Late st Contact Info) Description 12/04/2018 Scanned Document [facility] Health Information Management [address] [place] [address] External, Provider Social History Tobacco Use Types [...] [facility] Building [address] [place], [place] [phone] Ronald Mills MD [address] [place] [address] [address] [place] [address] documented as of this encounter Visit Diagnoses Not on filedocumented in this encounter Additional Health Concerns Infection Onset Date Last Indicated Resolved Time COVID-19 03/05/2022 03/05/2022 03/15/2022 7:18 PM EDT Assessment Noted Time PHQ-9 Depression Total Score: 2 11/07/19 19 2:06 PM EDT documented as of this encounter Care Teams Soda Fountain Clerk Relationship Specialty Start Date End Date Caitlyn Bowie MD 3400 [facility] Max 1 [place] [address] PCP - General Internal Medicine 05/06/21 Henry Kelly MD Pulmonary Department 175 [facility], [address] [place] [address] Physician Pulmonary Disease 09/06/17 06/22/20 documented as of this encounter
--- OUTSIDE RECORDS SUMMARY | 2025-03-26 17:11 | XMS_ITS | Encounter Summary ---
Author Organization [facility] and [facility] Address [address] [place] [address] Care Team Providers Care Maintenance Helper Name Role Phone Caitlyn Bowie MD Primary Care Provider +1- [phone] Encounter Details Date Type Department Care Team (Late st Contact Info) Description 04/19/2022 Scanned Document INTERFACE DEFAULT [address] [place] [address] System, Provider Not In Social History Tobacco [...] [facility] 240 [facility] Building [address] [place], [place] [address] Ronald Mills MD [address] [place] [address] [address] [place] [address] documented as of this encounter [...] as of this encounter Care Teams Maintenance Helper Relationship Specialty Start Date End Date Caitlyn Bowie MD [address] [address] PCP - General Internal Medicine 05/06/21 documented as of this encounter
--- OUTSIDE RECORDS SUMMARY | 2025-03-26 17:11 | XMS_ITS | Encounter Summary ---
Author Organization [facility] and [facility] Address [address] [place] [address] Care Team Providers Care Online Marketing Specialist Name Role Phone Caitlyn Bowie MD Primary Care Provider +1- [phone] Encounter Details Date Type Department Care Team (Late st Contact Info) Description 09/09/2015 Scanned Document [facility] Health Information Management [address] [place] [address] External, Provider Social History Tobacco Use Types [...] [facility] 240 [facility] Building [address] [place], [place] [id number] Ronald Mills MD 240 [facility] Max [address]1 [place] [address] documented as of this encounter Procedures Procedure Name Priority Date/Time Associated Diagnosis Comments LAB SCAN Routine 09/09/2015 documented in this encounter Results * Lab Scan (09/09/2015) Blood specimen (specimen) us Provider External LAB BLOOD ORDERABLES Final Res ult [facility] documented in this encounter Visit Diagnoses Not on filedocumented in this encounter Additional Health Concerns Infection Onset Date Last Indicated Resolved Time COVID-19 03/05/2022 03/05/2022 03/15/2022 7:18 PM EDT documented as of this encounter Care Teams Online Marketing Specialist Relationship Specialty Start Date End Date Caitlyn Bowie MD 3400 [facility] 1 [place] [address] PCP - General Internal Medicine 05/06/21 Henry Kelly MD Pulmonary Department 175 [facility], [address] [place] [address] Physician Pulmonary Disease 09/06/17 06/22/20 documented as of this encounter
--- OUTSIDE RECORDS SUMMARY | 2025-03-26 17:11 | XMS_ITS | Encounter Summary ---
Author Organization [facility] and [facility] Address [address] [place] [address] Care Team Providers Care Patrol Lady Name Role Phone Caitlyn Bowie MD Primary Care Provider +1- [phone] Encounter Details Date Type Department Care Team (Late st Contact Info) Description 04/25/2022 Scanned Document INTERFACE DEFAULT [address] [place] [address] System, Provider Not In Social History Tobacco [...] [facility] 240 [facility] [address] [place] [address] Ronald Mills MD [address] [place] [address] [address] [place] [address] documented as of this encounter Visit Diagnoses Not on filedocumented in this encounter Additional Health Concerns Assessment Noted Time PHQ-9 Depression Total Score: 2 11/07/19 19 2:06 PM EDT documented as of this encounter Care Teams Patrol Lady Relationship Specialty Start Date End Date Caitlyn Bowie MD [address] [address] PCP - General Internal Medicine 05/06/21 documented as of this encounter
--- OUTSIDE RECORDS SUMMARY | 2025-03-26 17:11 | XMS_ITS | Encounter Summary ---
Author Organization [facility] and [facility] Address [address] [place] [address] Care Team Providers Care Rig Mechanic Name Role Phone Caitlyn Bowie MD Primary Care Provider +1- [phone] Encounter Details Date Type Department Care Team (Late st Contact Info) Description 09/28/2015 Scanned Document [facility] Health Information Management [address] [place] [address] External, Provider Social History Tobacco Use Types [...] [facility] 240 [facility] Building [address] [place], [place] [address] Ronald Mills MD 240 [facility] Max [address] [place] [address] documented as of this encounter Procedures Procedure Name Priority Date/Time Associated Diagnosis Comments LAB SCAN Routine 09/09/2015 documented in this encounter Results * Lab Scan (09/09/2015) Blood specimen (specimen) us Provider External LAB BLOOD ORDERABLES Final Res ult [facility] documented in this encounter Visit Diagnoses Not on filedocumented in this encounter Additional Health Concerns Infection Onset Date Last Indicated Resolved Time COVID-19 03/05/2022 03/05/2022 03/15/2022 7:18 PM EDT documented as of this encounter Care Teams Rig Mechanic Relationship Specialty Start Date End Date Caitlyn Bowie MD 3400 [facility] 1 [place] [address] PCP - General Internal Medicine 05/06/21 Henry Kelly MD Pulmonary Department 175 [facility], [address] [place] [address] Physician Pulmonary Disease 09/06/17 06/22/20 documented as of this encounter
--- OUTSIDE RECORDS SUMMARY | 2025-03-26 17:11 | XMS_ITS | Encounter Summary ---
Author Organization [facility] and [facility] Address [address] [place] [address] Care Team Providers Care Sanitarian Inspector Name Role Phone Caitlyn Bowie MD Primary Care Provider +1- [phone] Encounter Details Date Type Department Care Team (Late st Contact Info) Description 05/16/2023 Scanned Document INTERFACE DEFAULT [address] [place] [address] System, Provider Not In Social History Tobacco [...] [facility] Building [address] [place], [place] [address] Ronald Mills MD [address] [place] [address] [address] [place] [address] documented as of this encounter [...] documented as of this encounter Care Teams Sanitarian Inspector Relationship Specialty Start Date End Date Caitlyn Bowie MD [address] [address] PCP - General Internal Medicine 05/06/21 documented as of this encounter
--- OUTSIDE RECORDS SUMMARY | 2025-03-26 17:11 | XMS_ITS | Encounter Summary ---
Author Organization [facility] and [facility] Address [address] [place] [address] Care Team Providers Care Hostess Cashier Name Role Phone Caitlyn Bowie MD Primary Care Provider +1- [phone] Encounter Details Date Type Department Care Team (Late st Contact Info) Description 09/09/2015 Scanned Document [facility] Health Information Management [address] [place] [address] External, Provider Social History Tobacco Use Types [...] [facility] 240 [facility] Building [address] [place], [place] [address] Ronald Mills MD 240 [facility] Max [address] [place] [address] documented as of this encounter Procedures Procedure Name Priority Date/Time Associated Diagnosis Comments LAB SCAN Routine 09/09/2015 documented in this encounter Results * Lab Scan (09/09/2015) Blood specimen (specimen) us Provider External LAB BLOOD ORDERABLES Final Res ult Performing Organization Address City/State/[facility] Co de Phone Number [facility] documented in this encounter Visit Diagnoses Not on filedocumented in this encounter Additional Health Concerns Infection Onset Date Last Indicated Resolved Time COVID-19 03/05/2022 03/05/2022 03/15/2022 7:18 PM EDT documented as of this encounter Care Teams Hostess Cashier Relationship Specialty Start Date End Date Caitlyn Bowie MD 3400 [facility] 1 [place] [address] PCP - General Internal Medicine 05/06/21 Henry Kelly MD Pulmonary Department 175 [facility], [address] [place] [address] Physician Pulmonary Disease 09/06/17 06/22/20 documented as of this encounter
--- OUTSIDE RECORDS SUMMARY | 2025-03-26 17:11 | XMS_ITS | Encounter Summary ---
Author Organization [facility] and [facility] Address [address] [place] [address] Care Team Providers Care Rivet Maker Name Role Phone Caitlyn Bowie MD Primary Care Provider +1- [phone] Encounter Details Date Type Department Care Team (Late st Contact Info) Description 04/13/2023 Scanned Document INTERFACE DEFAULT [address] [place] [address] System, Provider Not In Social History Tobacco [...] [facility] 240 [facility] Building [address] [place] [address] Ronald Mills MD [address] [place] [address] [address] [place] [address] documented as of this encounter [...] as of this encounter Care Teams Rivet Maker Relationship Specialty Start Date End Date Caitlyn Bowie MD [address] [address] PCP - General Internal Medicine 05/06/21 documented as of this encounter
--- OUTSIDE RECORDS SUMMARY | 2025-03-26 17:11 | XMS_ITS | Encounter Summary ---
Author Organization [facility] and [facility] Address [address] [place] [address] Care Team Providers Care Prison Officer Name Role Phone Caitlyn Bowie MD Primary Care Provider +1- [phone] Encounter Details Date Type Department Care Team (Late st Contact Info) Description 10/23/2018 Scanned Document [facility] Health Information Management [address] [place] [address] External, Provider Social History Tobacco Use Types [...] [facility] 240 [facility] Building [address] [place], [place] [address] Ronald Mills MD [address] [place] [address] [address] [place] [address] documented as of this encounter Visit Diagnoses Not on filedocumented in this encounter Additional Health Concerns Infection Onset Date Last Indicated Resolved Time COVID-19 03/05/2022 03/05/2022 03/15/2022 7:18 PM EDT documented as of this encounter Care Teams Prison Officer Relationship Specialty Start Date End Date Caitlyn Bowie MD 3400 [facility] 1 [place] [address] PCP - General Internal Medicine 05/06/21 Henry Kelly MD Pulmonary Department 175 [facility], [address] [place] [address] Physician Pulmonary Disease 09/06/17 06/22/20 documented as of this encounter
--- OUTSIDE RECORDS SUMMARY | 2025-03-26 17:11 | XMS_ITS | Encounter Summary ---
Author Organization [facility] and [facility] Address [address] [place] [address] Care Team Providers Care Area Field Manager Name Role Phone Caitlyn Bowie MD Primary Care Provider +1- [phone] Encounter Details Date Type Department Care Team (Late st Contact Info) Description 04/20/2023 Scanned Document INTERFACE DEFAULT [address] [place] [address] System, Provider Not In Social History Tobacco [...] 240 [facility] [address] [place], [place] [address] Ronald Mills MD [address] [place] [address] [address] [place] [address] documented as of this encounter [...] as of this encounter Care Teams Area Field Manager Relationship Specialty Start Date End Date Caitlyn Bowie MD [address] [address] PCP - General Internal Medicine 05/06/21 documented as of this encounter
--- OUTSIDE RECORDS SUMMARY | 2025-03-26 17:11 | XMS_ITS | Encounter Summary ---
Author Organization [facility] and [facility] Address [address] [place] [address] Care Team Providers Care Early Learning Teacher Name Role Phone Caitlyn Bowie MD Primary Care Provider +1- [phone] Encounter Details Date Type Department Care Team (Late st Contact Info) Description 04/22/2022 Scanned Document INTERFACE DEFAULT [address] [place] [address] System, Provider Not In Social History Tobacco [...] at [facility] 240 [facility] Building [address] [place], [place] [phone] Ronald Mills MD [address] [place] [address] [address] [place] [address] documented as of this encounter [...] as of this encounter Care Teams Early Learning Teacher Relationship Specialty Start Date End Date Caitlyn Bowie MD [address] [address] PCP - General Internal Medicine 05/06/21 documented as of this encounter
--- OUTSIDE RECORDS SUMMARY | 2025-03-26 17:11 | XMS_ITS | Encounter Summary ---
Author Organization [facility] and [facility] Address [address] [place] [phone] Care Team Providers Care Registered Nurse Cardiovascular Icu Name Role Phone Caitlyn Bowie MD Primary Care Provider +1- [phone] Encounter Details Date Type Department Care Team (Late st Contact Info) Description 04/28/2022 Scanned Document INTERFACE DEFAULT [address] [place] [address] System, Provider Not In Social History Tobacco [...] [facility] Building [address] [place], [place] [address] Ronald Mills MD [address] [place] [address] [address] [place] [address] documented as of this encounter [...] as of this encounter Care Teams Registered Nurse Cardiovascular Icu Relationship Specialty Start Date End Date Caitlyn Bowie MD [facility] [address] [address] PCP - General Internal Medicine 05/06/21 documented as of this encounter
--- OUTSIDE RECORDS SUMMARY | 2025-03-26 17:11 | XMS_ITS | Encounter Summary ---
Author Organization [facility] Address [address] [place] [address] Care Team Providers Care Lathe Set Up Operator Name Role Phone Caitlyn Bowie MD Primary Care Provider +1- [phone] Encounter Details Date Type Department Care Team (Late st Contact Info) Description 05/17/2023 Scanned Document INTERFACE DEFAULT [address] [place] [address] System, Provider Not In Social History Tobacco [...] [facility] 240 [facility] Building [address] [place], [place] [address] Ronald Mills MD [address] [place] [address] [address] [place] [address] documented as of this encounter [...] documented as of this encounter Care Teams Lathe Set Up Operator Relationship Specialty Start Date End Date Caitlyn Bowie MD [address] [address] PCP - General Internal Medicine 05/06/21 documented as of this encounter
--- OUTSIDE RECORDS SUMMARY | 2025-03-26 17:11 | XMS_ITS | Encounter Summary ---
Author Organization [facility] and [facility] Address [address] [place] [address] Care Team Providers Care Railroad Inspector Name Role Phone Caitlyn Bowie MD Primary Care Provider +1- [phone] Encounter Details Date Type Department Care Team (Late st Contact Info) Description 09/09/2015 Scanned Document [facility] Health Information Management [address] [place] [address] External, Provider Social History Tobacco Use Types [...] [facility] 240 [facility] Building [address] [place], [place] [phone] Ronald Mills MD 240 [facility] Max [address] [place] [address] documented as of this encounter Procedures Procedure Name Priority Date/Time Associated Diagnosis Comments LAB SCAN Routine 09/09/2015 documented in this encounter Results * Lab Scan (09/09/2015) Blood specimen (specimen) us Provider External LAB BLOOD ORDERABLES Final Res ult [facility] documented in this encounter Visit Diagnoses Not on filedocumented in this encounter Additional Health Concerns Infection Onset Date Last Indicated Resolved Time COVID-19 03/05/2022 03/05/2022 03/15/2022 7:18 PM EDT documented as of this encounter Care Teams Railroad Inspector Relationship Specialty Start Date End Date Caitlyn Bowie MD 3400 [facility] 1 [place] [address] PCP - General Internal Medicine 05/06/21 Henry Kelly MD Pulmonary Department 175 [facility], [address] [place] [address] Physician Pulmonary Disease 09/06/17 06/22/20 documented as of this encounter
--- OUTSIDE RECORDS SUMMARY | 2025-03-26 17:11 | XMS_ITS | Encounter Summary ---
Author Organization [facility] and [facility] Address [address] [place] [address] Care Team Providers Care Pit Furnace Melter Name Role Phone Caitlyn Bowie MD Primary Care Provider +1- [phone] Encounter Details Date Type Department Care Team (Late st Contact Info) Description 04/19/2023 Scanned Document INTERFACE DEFAULT [address] [place] [address] System, Provider Not In Social History Tobacco [...] [facility] 240 [facility] Building [address] [place], [place] [address] Ronald Mills MD [address] [place] [address] [address] [place] [address] documented as [...] as of this encounter Care Teams Pit Furnace Melter Relationship Specialty Start Date End Date Caitlyn Bowie MD [address] [address] PCP - General Internal Medicine 05/06/21 documented as of this encounter
--- OUTSIDE RECORDS SUMMARY | 2025-03-26 17:11 | XMS_ITS | Encounter Summary ---
Author Organization [facility] and [facility] Address [address] [place] [address] Care Team Providers Care Coremaker Pipe Name Role Phone Caitlyn Bowie MD Primary Care Provider +1- [phone] Encounter Details Date Type Department Care Team (Late st Contact Info) Description 12/06/2018 Scanned Document [facility] Health Information Management [address] [place] [address] External, Provider Social History Tobacco Use Types [...] [facility] 240 [facility] Building [address] [place], [place] [phone] Ronald Mills MD [address] [place] [address] [address] [place] [address] documented as of this encounter [...] documented as of this encounter Care Teams Coremaker Pipe Relationship Specialty Start Date End Date Caitlyn Bowie MD 3400 [facility] 1 [place] [address] PCP - General Internal Medicine 05/06/21 Henry Kelly MD Pulmonary Department 175 [facility], [address] [place] [address] Physician Pulmonary Disease 09/06/17 06/22/20 documented as of this encounter
--- OUTSIDE RECORDS SUMMARY | 2025-03-26 17:11 | XMS_ITS | Encounter Summary ---
Author Organization [facility] Address 20 [place] [address] Care Team Providers Care District Sales Leader Name Role Phone Caitlyn Bowie MD Primary Care Provider +1- [phone] Encounter Details Date Type Department Care Team (Late st Contact Info) Description 05/10/2022 Scanned Document Cardiovascular Medicine at [address] [place] [phone] Norma Renee MD [address] [place] [phone] Social History Tobacco Use Types Packs/Day Years [...] PM EDT Telemedicine [facility] at [address] [place] [address] Ronald Mills MD [address] [place] [address] [address] [place] [address] documented as of this encounter Visit Diagnoses Not on filedocumented in this encounter Additional Health Concerns Assessment Noted Time PHQ-9 Depression Total Score: 2 11/07/19 19 2:06 PM EDT documented as of this encounter Care Teams District Sales Leader Relationship Specialty Start Date End Date Caitlyn Boiwe MD [address] [address] PCP - General Internal Medicine 05/06/21 documented as of this encounter
--- OUTSIDE RECORDS SUMMARY | 2025-03-26 17:11 | XMS_ITS | Encounter Summary ---
Author Organization [facility] and [facility] Address [address] [place] [address] Care Team Providers Care Rabies Inspector Name Role Phone Caitlyn Bowie MD Primary Care Provider +1- [phone] Encounter Details Date Type Department Care Team (Late st Contact Info) Description 05/04/2022 Scanned Document INTERFACE DEFAULT [address] [place] [address] System, Provider Not In Social History Tobacco [...] [facility] 240 [facility] [address] [place] [address] Ronald Mills MD [address] [place] [address] [address] [place] [address] documented as of this encounter Visit Diagnoses Not on filedocumented in this encounter Additional Health Concerns Assessment Noted Time PHQ-9 Depression Total Score: 2 11/07/19 19 2:06 PM EDT documented as of this encounter Care Teams Rabies Inspector Relationship Specialty Start Date End Date Caitlyn Bowie MD [address] [address] PCP - General Internal Medicine 05/06/21 documented as of this encounter
--- OUTSIDE RECORDS SUMMARY | 2025-03-26 17:11 | XMS_ITS | Encounter Summary ---
Author Organization [facility] and [facility] Address [address] [place] [address] Care Team Providers Care Box Folding Machine Operator Name Role Phone Caitlyn Bowie MD Primary Care Provider +1- [phone] Encounter Details Date Type Department Care Team (Late st Contact Info) Description 09/24/2015 Scanned Document Digestive Diseases at [facility] [address] [facility] [address] [place] [address] Kevin Espinoza MD [address] [place] [address] Social History Tobacco Use Types Packs/Day [...] PM EDT [facility] at [address] [place], [place] [phone] Ronald Mills MD [address] [place] [address] [address] [place] [address] documented as of this encounter Visit Diagnoses Not on filedocumented in this encounter Additional Health Concerns Infection Onset Date Last Indicated Resolved Time COVID-19 03/05/2022 03/05/2022 03/15/2022 7:18 PM EDT documented as of this encounter Care Teams Box Folding Machine Operator Relationship Specialty Start Date End Date Caitlyn Bowie MD 3400 [facility] 1 [place] [address] PCP - General Internal Medicine 05/06/21 Henry Kelly MD Pulmonary Department 175 [facility], [address] [place] [address] Physician Pulmonary Disease 09/06/17 06/22/20 documented as of this encounter
--- OUTSIDE RECORDS SUMMARY | 2025-03-26 17:12 | XMS_ITS | Encounter Summary ---
Author Organization [facility] and [facility] Address [address] [place] [address] Care Team Providers Care Command Post Superintendent Name Role Phone Caitlyn Bowie MD Primary Care Provider +1- [phone] Encounter Details Date Type Department Care Team (Latest Contact Info) Description 12/25/2015 Transcribed Orders [facility] Draw Station [address] [place] [address] Osmel Briscoe MD Other abnormality of red [...] PM EDT [facility] at [address] [place], [place] [phone] Ronald Mills MD [address] [place] [address] [address] [place] [address] documented as of this encounter Results * Free kappa lambda with ratio, serum ( GH Q YH) (12/25/2015 10:09 AM EDT) Ig [place] Free Light Chain 1.84 0.33 - 1.94 mg/dL [facility] Ig Lambda Free Light Chain 1.96 0.57 - 2.63 mg/dL [facility] [place]/Lambda FLC Ratio 0.94 0.26 - 1.65 [facility] Blood specimen (specimen) 12/25/2015 10:09 AM EDT Osmel Briscoe MD LAB BLOOD ORDERABLES Final R esult Performing Organization Address [facility] Co de Phone Number [facility] [address] [place] [phone] * Immunofixation, serum ( L Q YH) (12/25/2015 10:09 AM EDT) [facility] Immunofixation Electrophoresis Gel See below See Interp. [facility] Comment: INTERPRETATION: Normal immunofixation electrophoresis. No evidence of a serum monoclonal component. SIGNED BY:Keyur KAYE MD ON 12/29/2015 14:56:04 INTERPRETATION REVIEW : I have reviewed these results and agree with this interpretation. Blood specimen (specimen) 12/25/2015 10:09 AM EDT Osmel Briscoe MD LAB BLOOD ORDERABLES Final R esult Performing Organization Address [facility] Co de Phone Number [facility] [address] [place] [address] * (ABNORMAL) Protein electrophoresis, serum ( GH L YH) (12/25/2015 10:09 AM EDT) Albumin Electrophoresis 3.45(L) 3.50 - 4.70 g/dL [facility] Aindr-4-Cbzwfvgb 0.16 0.10 - 0.30 g/dL [facility] Kitsr-3-Yaaougtv 0.81 0.60 - 1.00 g/dL [facility] [...] Final R esult Performing Organization Address [facility] Co de Phone Number [facility] [address] [place] [address] * Reticulocytes (GH L Q YH) (12/25/2015 10:09 AM EDT) Reticulocyte Count 2.1 0.6 - 2.7 % [facility] Blood specimen (specimen) 12/25/2015 10:09 AM EDT Osmel Briscoe MD LAB BLOOD ORDERABLES Final R esult Performing Organization Address [facility] Co de Phone Number [facility] [address] [place] [phone] * (ABNORMAL) Sedimentation rate (ESR) (12/25/2015 10:09 AM EDT) Sed Rate 27(H) 0 - 20 mm/hr [facility] Blood specimen (specimen) 12/25/2015 10:09 AM EDT Osmel Briscoe MD LAB BLOOD ORDERABLES Final R esult Performing Organization Address [facility] Co de Phone Number [facility] [address] [place] [address] * Ferritin (12/25/2015 10:09 AM EDT) Ferritin 68 9 - 120 ng/mL [facility] Blood specimen (specimen) 12/25/2015 10:09 AM EDT Osmel Briscoe MD LAB BLOOD ORDERABLES Final R esult Performing Organization Address [facility] Co de Phone Number [facility] [address] [place] [address] * Iron and TIBC (12/25/2015 10:09 AM EDT) Iron 110 50 - 170 ug/dL [facility] TIBC 290 250 - 450 ug/dL [facility] Iron Saturation 38 15 - 50 [facility] Blood specimen (specimen) 12/25/2015 10:09 AM EDT Osmel Briscoe MD LAB BLOOD ORDERABLES Final R esult Performing Organization Address [facility] Co de Phone Number [facility] [address] [place] [address] * Vitamin D 25 hydroxy (BH L [...] Address [facility]/ZIP Co de Phone Number [facility] [address] [place] [address] * TSH (BH L YH) (12/25/2015 10:09 AM EDT) TSH cancelled 0.3 - 4.2 uU/mL [facility] TSH 1.62 0.3 - 4.2 uU/mL [facility] Comment:This test is a third generation TSH assay. Blood specimen (specimen) 12/25/2015 10:09 AM EDT Osmel Briscoe MD LAB BLOOD ORDERABLES Final R esult Performing Organization Address [facility] Co de Phone Number [facility] [address] [place] [phone] * (ABNORMAL) CBC and differential (12/25/2015 10:09 AM EDT) [facility] CBC with Differential See Below [facility] Monocytes 10 2 - 15 % [facility] Eosinophils 1 0 - 5 % [facility] Basophils 0 0 - 2 % [facility] ANC (Abs Neutrophil Count) 8.1 1.0 - 9.0 x 1000/uL [facility] Absolute Lymphocyte Count 0.7 0.6 - 4.6 x 1000/uL [facility] Blood specimen (specimen) ARM NEC / Unknown 12/25/2015 10:09 AM EDT us Osmel Briscoe MD LAB BLOOD ORDERABLES Final R esult [facility] [address] [place] [address] documented in this encounter Visit Diagnoses Diagnosis [...] documented as of this encounter Care Teams Command Post Superintendent Relationship Specialty Start Date End Date Caitlyn Bowie MD [facility]0 [facility] 1 [place] [address] PCP - General Internal Medicine 05/06/21 Henry Kelly MD Pulmonary Department 175 [facility], [address] [place] [address] Physician Pulmonary Disease 09/06/17 06/22/20 documented as of this encounter
--- OUTSIDE RECORDS SUMMARY | 2025-03-26 17:12 | XMS_ITS | Encounter Summary ---
Author Organization [facility] and [facility] Address [address] [place] [address] Care Team Providers Care Project Manager Finance Name Role Phone Caitlyn Bowie MD Primary Care Provider +1- [phone] Encounter Details Date Type Department Care Team (Late st Contact Info) Description 04/16/2022 Scanned Document INTERFACE DEFAULT [address] [place] [address] System, Provider Not In Social History Tobacco [...] Center at [facility] 240 [facility] Building [address] [place], [place] [address] Ronald Mills MD [address] [place] [address] [address] [place] [address] documented as of this encounter [...] of this encounter Care Teams Project Manager Finance Relationship Specialty Start Date End Date Caitlyn Bowie MD [address] [address] PCP - General Internal Medicine 05/06/21 documented as of this encounter
--- OUTSIDE RECORDS SUMMARY | 2025-03-26 17:13 | XMS_ITS | Encounter Summary ---
Author Organization [facility] and [facility] Address [address] [place] [address] Care Team Providers Care Case Management Rn Name Role Phone Caitlyn Bowie MD Primary Care Provider +1- [phone] Encounter Details Date Type Department Care Team (Late st Contact Info) Description 11/04/2015 Scanned Document [facility] Health Information Management [address] [place] [address] External, Provider Social History Tobacco Use Types [...] at [facility] 240 [facility] Building [address] [place], [place] [phone] Ronald Mills MD 240 [facility] [address] [place] [address] documented as of this encounter Procedures Procedure Name Priority Date/Time Associated Diagnosis Comments NUC MED/PET RESULT SCAN Routine 11/04/2015 documented in this encounter Results * Nuc Med/PET Result Scan (11/04/2015) us Provider External IMG SCAN REPORTS Edited Result - Final [facility] [place], [place], [facility] documented in this encounter Visit Diagnoses Not on filedocumented in this encounter Additional Health Concerns Infection Onset Date Last Indicated Resolved Time COVID-19 03/05/2022 03/05/2022 03/15/2022 7:18 PM EDT documented as of this encounter Care Teams Case Management Rn Relationship Specialty Start Date End Date Caitlyn Bowie MD 3400 [facility] [place] [facility] Max 1 [place] [address] PCP - General Internal Medicine 05/06/21 Henry Kelly MD Pulmonary Department 175 [facility], [address] [place] [address] Physician Pulmonary Disease 09/06/17 06/22/20 documented as of this encounter
--- OUTSIDE RECORDS SUMMARY | 2025-03-26 17:13 | XMS_ITS | Encounter Summary ---
Author Organization [facility] and [facility] Address [address] [place] [address] Care Team Providers Care Director Private Music Therapy Agency Name Role Phone Caitlyn Bowie MD Primary Care Provider +1- [phone] Encounter Details Date Type Department Care Team (Late st Contact Info) Description 04/14/2022 Scanned Document INTERFACE DEFAULT [address] [place] [address] System, Provider Not In Social History Tobacco [...] [facility] – [facility] 240 [facility] Building [address] [place] [address] Ronald Mills MD [address] [place] [address] [address] [place] [address] documented as of this encounter Visit Diagnoses Not on filedocumented in this encounter Additional Health Concerns Assessment Noted Time PHQ-9 Depression Total Score: 2 11/07/19 19 2:06 PM EDT documented as of this encounter Care Teams Director Private Music Therapy Agency Relationship Specialty Start Date End Date Caitlyn Bowie MD [address] [address] PCP - General Internal Medicine 05/06/21 documented as of this encounter
--- OUTSIDE RECORDS SUMMARY | 2025-03-26 17:13 | XMS_ITS | Encounter Summary ---
Author Organization [facility] and [facility] Address [address] [place] [address] Care Team Providers Care Corporate Planning Manager Name Role Phone Caitlyn Bowie MD Primary Care Provider +1- [phone] Encounter Details Date Type Department Care Team (Late st Contact Info) Description 11/03/2015 Scanned Document [facility] Health Information Management [address] [place] [address] External, Provider Social History Tobacco Use Types [...] Healthcare Services [facility] 240 [facility] Building [address] [place], [place] [phone] Ronald Mills MD [address] [facility] [address] [place] [address] documented as of this encounter Procedures Procedure Name Priority Date/Time Associated Diagnosis Comments US RESULT SCAN Routine 11/03/2015 documented in this encounter Results * US Result Scan (11/03/2015) us Provider External IMG SCAN REPORTS Edited Result - Final [facility] [place], [place], [facility] documented in this encounter Visit Diagnoses Not on filedocumented in this encounter Additional Health Concerns Infection Onset Date Last Indicated Resolved Time COVID-19 03/05/2022 03/05/2022 03/15/2022 7:18 PM EDT documented as of this encounter Care Teams Corporate Planning Manager Relationship Specialty Start Date End Date Caitlyn Bowie MD 3400 [facility] Max 1 [place] [address] PCP - General Internal Medicine 05/06/21 Henry Kelly MD Pulmonary Department 175 [facility], [address] [place] [address] Physician Pulmonary Disease 09/06/17 06/22/20 documented as of this encounter
--- OUTSIDE RECORDS SUMMARY | 2025-03-26 17:13 | XMS_ITS | Encounter Summary ---
Author Organization [facility] and [facility] Address [address] [place] [address] Care Team Providers Care Top And Seat Cover Fitter Name Role Phone Caitlyn Bowie MD Primary Care Provider +1- [phone] Encounter Details Date Type Department Care Team (Late st Contact Info) Description 04/11/2019 Scanned Document [facility] Health Information Management [address] [place] [address] External, Provider Social History Tobacco Use Types [...] [facility] 240 [facility] Building [address] [place] [address] Ronald Mills MD [address] [place] [address] [address] [place] [address] documented as of this encounter [...] as of this encounter Care Teams Top And Seat Cover Fitter Relationship Specialty Start Date End Date Caitlyn Bowie MD 3400 [facility] 1 [place] [address] PCP - General Internal Medicine 05/06/21 Henry Kelly MD Pulmonary Department 175 [facility], [address] [place] [address] Physician Pulmonary Disease 09/06/17 06/22/20 documented as of this encounter
--- OUTSIDE RECORDS SUMMARY | 2025-03-26 17:13 | XMS_ITS | Encounter Summary ---
Author Organization [facility] and [facility] Address [address] [place] [address] Care Team Providers Care Loader Helper Sorting Yard Name Role Phone Caitlyn Bowie MD Primary Care Provider +1- [phone] Encounter Details Date Type Department Care Team (Late st Contact Info) Description 04/12/2022 Scanned Document INTERFACE DEFAULT [address] [place] [address] System, Provider Not In Social History Tobacco [...] [facility] Building [address] [place] [address] Ronald Mills MD [address] [place] [address] [address] [place] [address] documented as of this encounter [...] documented as of this encounter Care Teams Loader Helper Sorting Yard Relationship Specialty Start Date End Date Caitlyn Bowie MD [address] [address] PCP - General Internal Medicine 05/06/21 documented as of this encounter
--- OUTSIDE RECORDS SUMMARY | 2025-03-26 17:13 | XMS_ITS | Encounter Summary ---
Author Organization [facility] and [facility] Address [address] [place] [address] Care Team Providers Care Level Vial Inspector Name Role Phone Caitlyn Bowie MD Primary Care Provider +1- [phone] Encounter Details Date Type Department Care Team (Late st Contact Info) Description 01/08/2019 Scanned Document [facility] Health Information Management [address] [place] [address] External, Provider Social History Tobacco Use Types [...] – [facility] 240 [facility] Building [address] [place] [address] Ronald Mills MD [address] [place] [address] [address] [place] [address] documented as of this encounter [...] Bowie MD 3400 [facility] 1 [place] [address] PCP - General Internal Medicine 05/06/21 Henry Kelly MD Pulmonary Department 175 [facility], [address] [place] [address] Physician Pulmonary Disease 09/06/17 06/22/20 documented as of this encounter
--- OUTSIDE RECORDS SUMMARY | 2025-03-26 17:13 | XMS_ITS | Encounter Summary ---
Author Organization [facility] and [facility] Address [address] [place] [address] Care Team Providers Care Petroleum Products District Supervisor Name Role Phone Caitlyn Bowie MD Primary Care Provider +1- [phone] Encounter Details Date Type Department Care Team (Late st Contact Info) Description 03/12/2019 Scanned Document [facility] Health Information Management [address] [place] [address] External, Provider Social History Tobacco Use Types [...] [facility] Building [address] [place] [address] Ronald Mills MD [address] [place] [address] [address] [place] [address] documented as of this encounter [...] documented as of this encounter Care Teams Petroleum Products District Supervisor Relationship Specialty Start Date End Date Caitlyn Bowie MD 3400 [facility] 1 [place] [address] PCP - General Internal Medicine 05/06/21 Henry Kelly MD Pulmonary Department 175 [facility], [address] [place] [address] Physician Pulmonary Disease 09/06/17 06/22/20 documented as of this encounter
--- OUTSIDE RECORDS SUMMARY | 2025-03-26 17:13 | XMS_ITS | Encounter Summary ---
Author Organization [facility] and [facility] Address [address] [place] [address] Care Team Providers Care Recruitment Intern Name Role Phone Caitlyn Bowie MD Primary Care Provider +1- [phone] Encounter Details Date Type Department Care Team (Late st Contact Info) Description 04/22/2019 Scanned Document [facility] Health Information Management [address] [place] [address] External, Provider Social History Tobacco Use Types [...] Cancer Center at [facility] 240 [facility] Building [address] [place] [address] Ronald Mills MD [address] [place] [address] [address] [place] [address] documented as of this encounter Visit Diagnoses Not on filedocumented in this encounter Additional Health Concerns Infection Onset Date Last Indicated Resolved Time COVID-19 03/05/2022 03/05/2022 03/15/2022 7:18 PM EDT Assessment Noted Time PHQ-9 Depression Total Score: 2 11/07/19 19 2:06 PM EDT documented as of this encounter Care Teams Recruitment Intern Relationship Specialty Start Date End Date Caitlyn Bowie MD 3400 [facility] 1 [place] [address] PCP - General Internal Medicine 05/06/21 Henry Kelly MD Pulmonary Department 175 [facility], [address] [place] [address] Physician Pulmonary Disease 09/06/17 06/22/20 documented as of this encounter
--- OUTSIDE RECORDS SUMMARY | 2025-03-26 17:13 | XMS_ITS | Encounter Summary ---
Author Organization [facility] and [facility] Address [address] [place] [address] Care Team Providers Care Refrigerator Mover Name Role Phone Caitlyn Bowie MD Primary Care Provider +1- [phone] Encounter Details Date Type Department Care Team (Late st Contact Info) Description 01/13/2019 Scanned Document [facility] Health Information Management [address] [place] [address] External, Provider Social History Tobacco Use Types [...] [facility] 240 [facility] Building [address] [place] [address] Ronald Mills MD [address] [place] [address] [address] [place] [address] documented as of this encounter [...] documented as of this encounter Care Teams Refrigerator Mover Relationship Specialty Start Date End Date Caitlyn Bowie MD 3400 [facility] 1 [place] [address] PCP - General Internal Medicine 05/06/21 Henry Kelly MD Pulmonary Department 175 [facility], [address] [place] [address] Physician Pulmonary Disease 09/06/17 06/22/20 documented as of this encounter
--- OUTSIDE RECORDS SUMMARY | 2025-03-26 17:13 | XMS_ITS | Encounter Summary ---
Author Organization [facility] Address [address] [place] [address] Care Team Providers Care It Coordinator Name Role Phone Caitlyn Bowie MD Primary Care Provider +1- [phone] Encounter Details Date Type Department Care Team (Late st Contact Info) Description 02/06/2019 Scanned Document [facility] Health Information Management [address] [place] [address] External, Provider Social History Tobacco Use Types [...] at [facility] 240 [facility] Building [address] [place] [address] Ronald Mills MD [address] [place] [address] [address] [place] [address] documented as of this encounter [...] as of this encounter Care Teams It Coordinator Relationship Specialty Start Date End Date Caitlyn Bowie MD 3400 [facility] 1 [place] [address] PCP - General Internal Medicine 05/06/21 Henry Kelly MD Pulmonary Department 175 [facility], [address] [place] [address] Physician Pulmonary Disease 09/06/17 06/22/20 documented as of this encounter
--- OUTSIDE RECORDS SUMMARY | 2025-03-26 17:13 | XMS_ITS | Encounter Summary ---
Author Organization [facility] Address [address] [place] [address] Care Team Providers Care Reproduction Order Processor Name Role Phone Caitlyn Bowie MD Primary Care Provider +1- [phone] Encounter Details Date Type Department Care Team (Late st Contact Info) Description 01/28/2019 Scanned Document [facility] Health Information Management [address] [place] [address] External, Provider Social History Tobacco Use Types [...] at [facility] [address] [facility] [address] [place] [address] Ronald Mills MD [address] [place] [address] [address] [place] [address] documented as of this encounter Visit Diagnoses Not on filedocumented in this encounter Additional Health Concerns Infection Onset Date Last Indicated Resolved Time COVID-19 03/05/2022 03/05/2022 03/15/2022 7:18 PM EDT Assessment Noted Time PHQ-9 Depression Total Score: 2 11/07/19 19 2:06 PM EDT documented as of this encounter Care Teams Reproduction Order Processor Relationship Specialty Start Date End Date Caitlyn Bowie MD 3400 [facility] 1 [place] [address] PCP - General Internal Medicine 05/06/21 Henry Kelly MD Pulmonary Department 175 [facility], [address] [place] [address] Physician Pulmonary Disease 09/06/17 06/22/20 documented as of this encounter
--- OUTSIDE RECORDS SUMMARY | 2025-03-26 17:13 | XMS_ITS | Encounter Summary ---
Author Organization [facility] Address [address] [place] [address] Phone Care Team Providers Care Cost Manager Name Role Phone Caitlyn Bowie MD Primary Care Provider +1- [phone] Encounter Details Date Type Department Care Team (Late st Contact Info) Description 10/01/2024 Documentation Only [facility] [address] [place] [address] Ron Taylor MD [address] [place] [address] Social History Tobacco Use Types [...] [facility] [address] [place] [address] Rubén Ashraf MD [address] [place] [address] [place] [address] documented as of this encounter Visit Diagnoses Not on filedocumented in this encounter Care Teams Cost Manager Relationship Specialty Start Date End Date Caitlyn Bowie MD [address] [place], [place] PCP - General Internal Medicine 09/24/24 documented as of this encounter
--- OUTSIDE RECORDS SUMMARY | 2025-03-26 17:13 | XMS_ITS | Encounter Summary ---
Author Organization [facility] and [facility] Address [address] [place] [address] Care Team Providers Care Automotive Parts Coordinator Name Role Phone Caitlyn Bowie MD Primary Care Provider +1- [phone] Encounter Details Date Type Department Care Team (Late st Contact Info) Description 01/26/2019 Scanned Document [facility] Health Information Management [address] [place] [address] External, Provider Social History Tobacco Use Types [...] [facility] [address] [facility] [address] [place] [address] Ronald Mills MD [address] [place] [address] [address] [place] [address] documented as of this encounter [...] of this encounter Care Teams Automotive Parts Coordinator Relationship Specialty Start Date End Date Caitlyn Bowie MD 3400 [facility] 1 [place] [address] PCP - General Internal Medicine 05/06/21 Henry Kelly MD Pulmonary Department 175 [facility], [address] [place] [address] Physician Pulmonary Disease 09/06/17 06/22/20 documented as of this encounter
--- OUTSIDE RECORDS SUMMARY | 2025-03-26 17:13 | XMS_ITS | Encounter Summary ---
Author Organization [facility] Address [address] [place] [address] Care Team Providers Care Box Blank Machine Operator Helper Name Role Phone Caitlyn Bowie MD Primary Care Provider +1- [phone] Encounter Details Date Type Department Care Team (Late st Contact Info) Description 12/27/2018 Scanned Document COUNTS INCLUDE 234 [facility]EDS AT [facility] Health Information Management [address] [place] [address] External, Provider Social History Tobacco Use Types [...] [facility] 240 [facility] [address] [place] [address] Ronald Mills MD [address] [place] [address] [address] [place] [address] documented as of this encounter [...] as of this encounter Care Teams Box Blank Machine Operator Helper Relationship Specialty Start Date End Date Caitlyn Bowie MD 3400 [facility] 1 [place] [address] PCP - General Internal Medicine 05/06/21 Henry Kelly MD Pulmonary Department 175 [facility], [address] [place] [address] Physician Pulmonary Disease 09/06/17 06/22/20 documented as of this encounter
--- OUTSIDE RECORDS SUMMARY | 2025-03-26 17:13 | XMS_ITS | Encounter Summary ---
Author Organization [facility] Address [address] [place] [address] Care Team Providers Care Casket Inspector Name Role Phone Caitlyn Bowie MD Primary Care Provider +1- [phone] Encounter Details Date Type Department Care Team (Late st Contact Info) Description 03/20/2023 Scanned Document [facility] Radiology [address] [place] [address] Caitlyn Bowie MD [address] [place] [address] Social History Tobacco Use Types Packs/Day Years [...] on filedocumented in this encounter Care Teams Casket Inspector Relationship Specialty Start Date End Date Caitlyn Bowie MD 3400 [place] [address] PCP - General Internal Medicine 03/20/23 documented as of this encounter
--- OUTSIDE RECORDS SUMMARY | 2025-03-26 17:13 | XMS_ITS | Encounter Summary ---
Author Organization [facility] and [facility] Address [address] [place] [address] Care Team Providers Care Protein Chemist Name Role Phone Caitlyn Bowie MD Primary Care Provider +1- [phone] Encounter Details Date Type Department Care Team (Late st Contact Info) Description 04/18/2022 Scanned Document INTERFACE DEFAULT [address] [place] [address] System, Provider Not In Social History Tobacco [...] [facility] [address] [place] [address] Ronald Mills MD [address] [place] [address] [address] [place] [address] documented as of this encounter Visit Diagnoses Not on filedocumented in this encounter Additional Health Concerns Assessment Noted Time PHQ-9 Depression Total Score: 2 11/07/19 19 2:06 PM EDT documented as of this encounter Care Teams Protein Chemist Relationship Specialty Start Date End Date Caitlyn Bowie MD [address] [address] PCP - General Internal Medicine 05/06/21 documented as of this encounter
--- OUTSIDE RECORDS SUMMARY | 2025-03-26 17:13 | XMS_ITS | Encounter Summary ---
Author Organization [facility] Address [address] [place] [address] Care Team Providers Care Bulb Sorter Name Role Phone Caitlyn Bowie MD Primary Care Provider +1- [phone] Encounter Details Date Type Department Care Team (Late st Contact Info) Description 12/28/2018 Scanned Document [facility] Health Information Management [address] [place] [address] External, Provider Social History Tobacco Use Types [...] at [facility] 240 [facility] Building [address] [place] [address] Ronald Mills MD [address] [place] [address] [address] [place] [address] documented as of this encounter [...] documented as of this encounter Care Teams Bulb Sorter Relationship Specialty Start Date End Date Caitlyn Bowie MD 3400 [facility] Max 1 [place] [address] PCP - General Internal Medicine 05/06/21 Henry Kelly MD Pulmonary Department 175 [facility], [address] [place] [address] Physician Pulmonary Disease 09/06/17 06/22/20 documented as of this encounter
--- OUTSIDE RECORDS SUMMARY | 2025-03-26 17:13 | XMS_ITS | Encounter Summary ---
Author Organization [facility] Address [address] [place] [address] Care Team Providers Care Switchboard Inspector Name Role Phone Caitlyn Bowie MD Primary Care Provider +1- [phone] Encounter Details Date Type Department Care Team (Late st Contact Info) Description 01/08/2022 Scanned Document INTERFACE DEFAULT [address] [place] [address] System, Provider Not In Social History Tobacco [...] [facility] 240 [facility] Building [address] [place], [place] [phone] Ronald Mills MD [address] [place] [address] [address] [place] [address] documented as of this encounter [...] as of this encounter Care Teams Switchboard Inspector Relationship Specialty Start Date End Date Caitlyn Bowie MD [address] [address] PCP - General Internal Medicine 05/06/21 documented as of this encounter
--- OUTSIDE RECORDS SUMMARY | 2025-03-26 17:13 | XMS_ITS | Encounter Summary ---
Author Organization [facility] Address [address] [place] [address] Care Team Providers Care Recordist Chief Name Role Phone Caitlyn Bowie MD Primary Care Provider +1- [phone] Encounter Details Date Type Department Care Team (Late st Contact Info) Description 12/03/2015 Scanned Document [facility] Health Information Management [address] [place] [address] External, Provider Social History Tobacco Use Types [...] [facility] 240 [facility] Building [address] [place], [place] [phone] Ronald Mills MD 240 [facility] [address] [place] [address] documented as of this encounter Procedures Procedure Name Priority Date/Time Associated Diagnosis Comments LAB SCAN Routine 12/03/2015 documented in this encounter Results * Lab Scan (12/03/2015) Blood specimen (specimen) us Provider External LAB BLOOD ORDERABLES Edited Re sult - Final [facility] documented in this encounter Visit Diagnoses Not on filedocumented in this encounter Additional Health Concerns Infection Onset Date Last Indicated Resolved Time COVID-19 03/05/2022 03/05/2022 03/15/2022 7:18 PM EDT documented as of this encounter Care Teams Recordist Chief Relationship Specialty Start Date End Date Caitlyn Bowie MD 3400 [facility] 1 [place] [address] PCP - General Internal Medicine 05/06/21 Henry Kelly MD Pulmonary Department 175 [facility], [address] [place] [address] Physician Pulmonary Disease 09/06/17 06/22/20 documented as of this encounter
--- OUTSIDE RECORDS SUMMARY | 2025-03-26 17:13 | XMS_ITS | Encounter Summary ---
Author Organization [facility] and [facility] Address [address] [place] [address] Care Team Providers Care Plant Associate Name Role Phone Caitlyn Bowie MD Primary Care Provider +1- [phone] Encounter Details Date Type Department Care Team (Late st Contact Info) Description 12/01/2015 Scanned Document [facility] Health Information Management [address] [place] [address] External, Provider Social History Tobacco Use Types [...] at [facility] 240 [facility] Building [address] [place], [place] [address] Ronald Mills MD 240 [facility] Max [address] [place] [address] documented as of this encounter Procedures Procedure Name Priority Date/Time Associated Diagnosis Comments CT RESULT SCAN Routine 12/01/2015 documented in this encounter Results * CT Result Scan (12/01/2015) us Provider External IMG SCAN REPORTS Edited Result - Final [facility] [place], [facility] documented in this encounter Visit Diagnoses Not on filedocumented in this encounter Additional Health Concerns Infection Onset Date Last Indicated Resolved Time COVID-19 03/05/2022 03/05/2022 03/15/2022 7:18 PM EDT documented as of this encounter Care Teams Plant Associate Relationship Specialty Start Date End Date Caitlyn Bowie MD 3400 [facility] Max 1 [place] [address] PCP - General Internal Medicine 05/06/21 Henry Kelly MD Pulmonary Department 175 [facility], [address] [place] [address] Physician Pulmonary Disease 09/06/17 06/22/20 documented as of this encounter
--- OUTSIDE RECORDS SUMMARY | 2025-03-26 17:13 | XMS_ITS | Encounter Summary ---
Author Organization [facility] Address [address] [place] [address] Care Team Providers Care Orthopedic Technician Name Role Phone Caitlyn Bowie MD Primary Care Provider +1- [phone] Encounter Details Date Type Department Care Team (Late st Contact Info) Description 01/09/2019 Scanned Document [facility] Health Information Management [address] [place] [address] External, Provider Social History Tobacco Use Types [...] [facility] Building [address] [place] [address] Ronald Mills MD [address] [place] [address] [address]1 [place] [address] documented as of this encounter [...] as of this encounter Care Teams Orthopedic Technician Relationship Specialty Start Date End Date Caitlyn Bowie MD 3400 [facility] 1 [place] [address] PCP - General Internal Medicine 05/06/21 Henry Kelly MD Pulmonary Department 175 [facility], [address] [place] [address] Physician Pulmonary Disease 09/06/17 06/22/20 documented as of this encounter
--- OUTSIDE RECORDS SUMMARY | 2025-03-26 17:13 | XMS_ITS | Encounter Summary ---
Author Organization [facility] Address [address] [place] [address] Care Team Providers Care Gristmill Operator Name Role Phone Caitlyn Bowie MD Primary Care Provider +1- [phone] Encounter Details Date Type Department Care Team (Late st Contact Info) Description 01/30/2019 Scanned Document [facility] Health Information Management [address] [place] [address] External, Provider Social History Tobacco Use Types [...] [facility] Building [address] [place] [address] Ronald Mills MD [address] [place] [address] [address]1 [place] [address] documented as of this encounter [...] documented as of this encounter Care Teams Gristmill Operator Relationship Specialty Start Date End Date Catilyn Bowie MD 3400 [facility] 1 [place] [address] PCP - General Internal Medicine 05/06/21 Henry Kelly MD Pulmonary Department 175 [facility], [address] [place] [address] Physician Pulmonary Disease 09/06/17 06/22/20 documented as of this encounter
--- OUTSIDE RECORDS SUMMARY | 2025-03-26 17:13 | XMS_ITS | Encounter Summary ---
Author Organization [facility] Address [address] [place] [address] Care Team Providers Care Keycase Assembler Name Role Phone Caitlyn Bowie MD Primary Care Provider +1- [phone] Encounter Details Date Type Department Care Team (Late st Contact Info) Description 12/29/2021 Telephone [facility] at [address] - [address] [address] Ronald Mills MD [address] [place] [address] Social History Tobacco Use Types Packs/Day [...] not sure where the blood's coming from. [phone] documented in this encounter Plan of Treatment Upcoming Encounters Date Type Department Care Team (Late st Contact Info) Description 04/25/2025 4:00 PM EDT Telemedicine [facility] 240 [facility] Building [address] [place] [address] Ronald Mills MD 240 [facility] A1 [place] [address] documented as of this encounter Visit Diagnoses Not on filedocumented in this encounter Additional Health Concerns Infection Onset Date Last Indicated Resolved Time COVID-19 03/05/2022 03/05/2022 03/15/2022 7:18 PM EDT Assessment Noted Time PHQ-9 Depression Total Score: 2 11/07/19 19 2:06 PM EDT documented as of this encounter Care Teams Keycase Assembler Relationship Specialty Start Date End Date Caitlyn Bowie MD [address] [address] PCP - General Internal Medicine 05/06/21 documented as of this encounter
--- OUTSIDE RECORDS SUMMARY | 2025-03-26 17:13 | XMS_ITS | Encounter Summary ---
Author Organization [facility] Address [address] [place] [address] Care Team Providers Care Vp Foundation Name Role Phone Caitlyn Bowie MD Primary Care Provider +1- [phone] Reason for Visit * Reason Comments Results Encounter Details Date Type Department Care Team (Late st Contact Info) Description 03/15/2022 Telephone [facility] at [address] [address] Ronald Mills MD [address] [place] [address] Results Social History Tobacco Use Types [...] [facility] 240 [facility] Building [address] [place], [place] [address] Ronald Mills MD 240 [facility] Max [address] [place] [address] documented as of this encounter Visit Diagnoses Not on filedocumented in this encounter Additional Health Concerns Infection Onset Date Last Indicated Resolved Time COVID-19 03/05/2022 03/05/2022 03/15/2022 7:18 PM EDT Assessment Noted Time PHQ-9 Depression Total Score: 2 11/07/19 19 2:06 PM EDT documented as of this encounter Care Teams Vp Foundation Relationship Specialty Start Date End Date Caitlyn Bowie MD [address] [address] PCP - General Internal Medicine 05/06/21 documented as of this encounter
--- OUTSIDE RECORDS SUMMARY | 2025-03-26 17:13 | XMS_ITS | Encounter Summary ---
Author Organization [facility] Address [address] [place] [address] Care Team Providers Care Tuyere Fitter Name Role Phone Caitlyn Bowie MD Primary Care Provider +1- [phone] Encounter Details Date Type Department Care Team (Late st Contact Info) Description 02/08/2016 Scanned Document [facility] Health Information Management [address] [place] [address] External, Provider Social History Tobacco Use Types [...] [facility] 240 [facility] Building [address] [place], [place] [address] Ronald Mills MD 240 [facility] A1 [place] [address] documented as of this encounter Visit Diagnoses Not on filedocumented in this encounter Additional Health Concerns Infection Onset Date Last Indicated Resolved Time COVID-19 03/05/2022 03/05/2022 03/15/2022 7:18 PM EDT documented as of this encounter Care Teams Tuyere Fitter Relationship Specialty Start Date End Date Caitlyn Bowie MD 3400 [facility] 1 [place] [address] PCP - General Internal Medicine 05/06/21 Henry Kelly MD Pulmonary Department 175 [facility], [address] [place] [address] Physician Pulmonary Disease 09/06/17 06/22/20 documented as of this encounter
--- OUTSIDE RECORDS SUMMARY | 2025-03-26 17:13 | XMS_ITS | Encounter Summary ---
Author Organization [facility] and [facility] Address [address] [place] [address] Care Team Providers Care Linux Unix Administrator Name Role Phone Caitlyn Bowie MD Primary Care Provider +1- [phone] Encounter Details Date Type Department Care Team (Late st Contact Info) Description 01/28/2019 Scanned Document Cardiovascular Medicine at [address] [place] [address] Cristian Arreguin MBBS [address] [place] [address] Social History Tobacco Use Types [...] PM EDT Telemedicine Cancer Center at [address] [place] [address] Ronald Mills MD [address] [place] [address] [address] [place] [address] documented as of this encounter Visit Diagnoses Not on filedocumented in this encounter Additional Health Concerns Infection Onset Date Last Indicated Resolved Time COVID-19 03/05/2022 03/05/2022 03/15/2022 7:18 PM EDT Assessment Noted Time PHQ-9 Depression Total Score: 2 11/07/19 19 2:06 PM EDT documented as of this encounter Care Teams Linux Unix Administrator Relationship Specialty Start Date End Date Caitlyn Bowie MD 3400 [facility] 1 [place] [address] PCP - General Internal Medicine 05/06/21 Henry Kelly MD Pulmonary Department [address] [place] [address], [address] [place] [address] Physician Pulmonary Disease 09/06/17 06/22/20 documented as of this encounter
--- OUTSIDE RECORDS SUMMARY | 2025-03-26 17:13 | XMS_ITS | Encounter Summary ---
Author Organization [facility] Address [address] [place] [address] Care Team Providers Care Head Host/Hostess Name Role Phone Caitlyn Bowie MD Primary Care Provider +1- [phone] Encounter Details Date Type Department Care Team (Late st Contact Info) Description 12/16/2015 Scanned Document [facility] Health Information Management [address] [place] [address] External, Provider Social History Tobacco Use Types [...] [facility] 240 [facility] Building [address] [place], [place] [phone] Ronald Mills MD 240 [facility] Max [address] [place] [address] documented as of this encounter Procedures Procedure Name Priority Date/Time Associated Diagnosis Comments US RESULT SCAN Routine 12/16/2015 documented in this encounter Results * US Result Scan (12/16/2015) us Provider External IMG SCAN REPORTS Edited Result - Final [facility] [place], [place], [facility] documented in this encounter Visit Diagnoses Not on filedocumented in this encounter Additional Health Concerns Infection Onset Date Last Indicated Resolved Time COVID-19 03/05/2022 03/05/2022 03/15/2022 7:18 PM EDT documented as of this encounter Care Teams Head Host/Hostess Relationship Specialty Start Date End Date Caitlyn Bowie MD [address] [facility] Max 1 [place] [address] PCP - General Internal Medicine 05/06/21 Henry Kelly MD Pulmonary Department 175 [facility], [address] [place] [address] Physician Pulmonary Disease 09/06/17 06/22/20 documented as of this encounter
--- OUTSIDE RECORDS SUMMARY | 2025-03-26 17:13 | XMS_ITS | Clinical Summary ---
Author Organization [facility] Address [address] [place] [address] Care Team Providers Care Box Stacker Name Role Phone Caitlyn Bowie Primary Care Provider [phone] Allergies Active Allergy Reactions Criticality Noted Date [...] Throat tightness Throat tightness Throat tightness Ipratropium [place] Unknown Medium 12/18/2021 Isosorbide Mononitrate 11/23/2020 Other [...] topic Insurance MEDICARE PART A & B [facility] Care Teams Box Stacker Relationship Specialty Start Date End Date Caitlyn Bowie [address] [place] [address] PCP - General Internal Medicine 07/18/22
--- OUTSIDE RECORDS SUMMARY | 2025-03-26 17:13 | XMS_ITS | Encounter Summary ---
Author Organization [facility] and [facility] Address [address] [place] [address] Care Team Providers Care Pupil Personnel Worker Name Role Phone Caitlyn Bowie MD Primary Care Provider +1- [phone] Encounter Details Date Type Department Care Team (Late st Contact Info) Description 03/02/2022 Scanned Document [facility] Health Information Management [address] [place] [address] External, Provider Social History Tobacco Use Types [...] Center at [facility] [address] [facility] [address] [place], [place] [phone] Ronald Mills MD [address] [place] [address] [address] [place] [address] documented as of this encounter Visit Diagnoses Not on filedocumented in this encounter Additional Health Concerns Infection Onset Date Last Indicated Resolved Time COVID-19 03/05/2022 03/05/2022 03/15/2022 7:18 PM EDT Assessment Noted Time PHQ-9 Depression Total Score: 2 11/07/19 19 2:06 PM EDT documented as of this encounter Care Teams Pupil Personnel Worker Relationship Specialty Start Date End Date Caitlyn Bowie MD [address] [address] PCP - General Internal Medicine 05/06/21 documented as of this encounter
--- OUTSIDE RECORDS SUMMARY | 2025-03-26 17:13 | XMS_ITS | Encounter Summary ---
Author Organization [facility] and [facility] Address [address] [place] [address] Care Team Providers Care Nremt Name Role Phone Caitlyn Bowie MD Primary Care Provider +1- [phone] Encounter Details Date Type Department Care Team (Late st Contact Info) Description 01/17/2019 Scanned Document [facility] Health Information Management [address] [place] [address] External, Provider Social History Tobacco Use Types [...] [facility] at [facility] 240 [facility] [address] [place] [address] Ronald Mills MD [address] [place] [address] [address] [place] [address] documented as of this encounter [...] 3400 [facility] 1 [place] [address] PCP - General Internal Medicine 05/06/21 Henry Kelly MD Pulmonary Department 175 [facility], [address] [place] [address] Physician Pulmonary Disease 09/06/17 06/22/20 documented as of this encounter
--- OUTSIDE RECORDS SUMMARY | 2025-03-26 17:13 | XMS_ITS | Encounter Summary ---
Author Organization [facility] and [facility] Address [address] [place] [address] Care Team Providers Care Linseed Oil Press Tender Name Role Phone Caitlyn Bowie MD Primary Care Provider +1- [phone] Encounter Details Date Type Department Care Team (Late st Contact Info) Description 01/02/2019 Scanned Document [facility] Health Information Management [address] [place] [address] External, Provider Social History Tobacco Use Types [...] [facility] 240 [facility] [address] [place] [address] Ronald Mills MD [address] [place] [address] [address] [place] [address] documented as of this encounter [...] documented as of this encounter Care Teams Linseed Oil Press Tender Relationship Specialty Start Date End Date Caitlyn Bowie MD 3400 [facility] 1 [place] [address] PCP - General Internal Medicine 05/06/21 Henry Kelly MD Pulmonary Department 175 [facility], [address] [place] [address] Physician Pulmonary Disease 09/06/17 06/22/20 documented as of this encounter
--- OUTSIDE RECORDS SUMMARY | 2025-03-26 17:13 | XMS_ITS | Encounter Summary ---
Author Organization [facility] and [facility] Address [address] [place] [address] Care Team Providers Care Engraver Ornamental Design Name Role Phone Caitlyn Bowie MD Primary Care Provider +1- [phone] Encounter Details Date Type Department Care Team (Late st Contact Info) Description 04/13/2022 Scanned Document INTERFACE DEFAULT [address] [place] [address] System, Provider Not In Social History Tobacco [...] Telemedicine [facility] at [facility] 240 [facility] Building [address] [place], [place] [address] Ronald Mills MD [address] [place] [address] [address] [place] [address] documented as [...] as of this encounter Care Teams Engraver Ornamental Design Relationship Specialty Start Date End Date Caitlyn Bowie MD [address] [address] PCP - General Internal Medicine 05/06/21 documented as of this encounter
--- OUTSIDE RECORDS SUMMARY | 2025-03-26 17:13 | XMS_ITS | Encounter Summary ---
Author Organization [facility] and [facility] Address [address] [place] [address] Care Team Providers Care Program Paraprofessional Name Role Phone Caitlyn Bowie MD Primary Care Provider +1- [phone] Encounter Details Date Type Department Care Team (Late Contact Info) Description 04/12/2022 Scanned Document [facility] Health Information Management [address] [place] [address] External, Provider Social History Tobacco Use Types [...] [facility] Building [address] [place], [place] [phone] Ronald Mills MD [address] [place] [address] [address] [place] [address] documented as of this encounter [...] as of this encounter Care Teams Program Paraprofessional Relationship Specialty Start Date End Date Caitlyn Bowie MD [address] [address] PCP - General Internal Medicine 05/06/21 documented as of this encounter
--- OUTSIDE RECORDS SUMMARY | 2025-03-26 17:13 | XMS_ITS | Encounter Summary ---
Author Organization [facility] Address [address] [place] [address] Care Team Providers Care Authorization Manager Name Role Phone Pcp, No Primary Care Provider Brennan Mario MD Primary Care Provider Caitlyn Bowie MD Primary Care Provider +1- [phone] Encounter Details Date Type Department Care Team (Late st Contact Info) Description 01/04/2022 Scanned Document [facility] Neurology Ophthalmology [address] [address] Yary Whitten DO [address] [place] [address] Social History Tobacco Use Types Packs/Day [...] on filedocumented in this encounter Care Teams Authorization Manager Relationship Specialty Start Date End Date Pcp, No PCP - General General Medicine 10/04/21 07/18/22 Brennan Burnett MD [address] [place] [address] PCP - General 07/19/22 03/19/23 Caitlyn Bowie MD 3400 [place] [address] PCP - General Internal Medicine 03/20/23 documented as of this encounter
--- OUTSIDE RECORDS SUMMARY | 2025-03-26 17:15 | XMS_ITS | Encounter Summary ---
Author Organization [facility] and [facility] Address [address] [place] [address] Care Team Providers Care Separator Operator Shellfish Meats Name Role Phone Caitlyn Bowie MD Primary Care Provider +1- [phone] Encounter Details Date Type Department Care Team (Late st Contact Info) Description 07/27/2016 Scanned Document Thoracic Oncology Program at [address] [address] Suzy Kong MD [address] [place] [phone] Social History Tobacco Use Types Packs/Day [...] PM EDT Telemedicine Cancer Center at [address] [place], [place] [phone] Ronald Mills MD 240 [facility] [address] [place] [address] documented as of this encounter Visit Diagnoses Not on filedocumented in this encounter Additional Health Concerns Infection Onset Date Last Indicated Resolved Time COVID-19 03/05/2022 03/05/2022 03/15/2022 7:18 PM EDT documented as of this encounter Care Teams Separator Operator Shellfish Meats Relationship Specialty Start Date End Date Caitlyn Bowie MD 3400 [facility] Max 1 [place] [address] PCP - General Internal Medicine 05/06/21 Henry Kelly MD Pulmonary Department 175 [facility], [address] [place] [address] Physician Pulmonary Disease 09/06/17 06/22/20 documented as of this encounter
--- OUTSIDE RECORDS SUMMARY | 2025-03-26 17:15 | XMS_ITS | Encounter Summary ---
Author Organization [facility] and [facility] Address [address] [place] [address] Care Team Providers Care Traffic Attendant Name Role Phone Caitlyn Bowie MD Primary Care Provider +1- [phone] Encounter Details Date Type Department Care Team (Late st Contact Info) Description 09/09/2024 Scanned Document INTERFACE DEFAULT [address] [place] [address] System, Provider Not In Social History Tobacco [...] [facility] 240 [facility] Building [address] [place], [place] [address] Ronald Mills MD [address] [place] [address] [address] [place] [address] documented as of this encounter [...] as of this encounter Care Teams Traffic Attendant Relationship Specialty Start Date End Date Caitlyn Bowie MD [address] [address] PCP - General Internal Medicine 05/06/21 documented as of this encounter
--- OUTSIDE RECORDS SUMMARY | 2025-03-26 17:15 | XMS_ITS | Encounter Summary ---
Author Organization [facility] and [facility] Address [address] [place] [address] Care Team Providers Care Harvesting Manager Name Role Phone Caitlyn Bowie MD Primary Care Provider +1- [phone] Encounter Details Date Type Department Care Team (Late st Contact Info) Description 06/17/2016 Scanned Document [facility] Health Information Management [address] [place] [address] External, Provider Social History Tobacco Use Types [...] Telemedicine [facility] 240 [facility] Building [address] [place], [place] [address] Ronald Mills MD [address] [facility] [address] [place] [address] documented as of this encounter Visit Diagnoses Not on filedocumented in this encounter Additional Health Concerns Infection Onset Date Last Indicated Resolved Time COVID-19 03/05/2022 03/05/2022 03/15/2022 7:18 PM EDT documented as of this encounter Care Teams Harvesting Manager Relationship Specialty Start Date End Date Caitlyn Bowie MD 3400 [facility] 1 [place] [address] PCP - General Internal Medicine 05/06/21 Henry Kelly MD Pulmonary Department 175 [facility], [address] [place] [address] Physician Pulmonary Disease 09/06/17 06/22/20 documented as of this encounter
--- OUTSIDE RECORDS SUMMARY | 2025-03-26 17:15 | XMS_ITS | Encounter Summary ---
Author Organization [facility] Address [address] [place] [address] Care Team Providers Care Control Systems Eng Name Role Phone Caitlyn Bowie MD Primary Care Provider +1- [phone] Reason for Referral * Imaging (Routine) - Closed Specialty Diagnoses / Procedures Referred By Contac t Referred To Contact Procedures NM Lung Ventilation Perfusion ([facility]) External, Provider Referral ID Status Reason Start Date Expiration Date Visits Re quested Visits Authorized [id number] Closed 08/22/2016 08/22/2017 4 4 Encounter Details Date Type Department Care Team (Late st Contact Info) Description 08/22/2016 Scanned Document Thoracic Oncology Program at [address] [phone] External, Provider Social History Tobacco Use Types [...] PM EDT Telemedicine Cancer Center at [address] [place] [address] Ronald Mills MD [address] [place] [address] Rd [address] [place] [address] documented as of this encounter Procedures Procedure Name Priority Date/Time Associated Diagnosis Comments XRAY RESULT SCAN Routine 07/27/2016 CT RESULT SCAN Routine 07/27/2016 CT RESULT SCAN Routine 07/27/2016 CARDIAC EKG RESULT SCAN Routine 07/27/2016 LAB SCAN Routine 07/27/2016 NM LUNG VENTILATION PERFUSIO N ([facility]) Routine 07/27/2016 documented in this encounter Results * Xray Result Scan (07/27/2016) us Provider External IMG SCAN REPORTS Final Result Performing Organization Address [facility] Co de Phone Number [facility] * CT Result Scan (07/27/2016) us Provider External IMG SCAN REPORTS Final Result Performing Organization Address [facility] Co de Phone Number [facility] * Cardiac EKG Result Scan (07/27/2016) us Provider External CV CARDIAC REPORT (CVR) Final Result Performing Organization Address [facility] Co de Phone Number [facility] * CT Result Scan (07/27/2016) us Provider External IMG SCAN REPORTS Final Result Performing Organization Address [facility] Co de Phone Number [facility] * Lab Scan (07/27/2016) Blood specimen (specimen) us Provider External LAB BLOOD ORDERABLES Final Res ult Performing Organization Address [facility] Co de Phone Number [facility] * NM Lung Ventilation Perfusion ([facility]) (07/27/2016) Anatomical Region Laterality Modality Chest, Lung Nuclear Medicine us Provider External IMG NM ORDERABLES Final Result documented in this encounter Visit Diagnoses Not on filedocumented in this encounter Additional Health Concerns Infection Onset Date Last Indicated Resolved Time COVID-19 03/05/2022 03/05/2022 03/15/2022 7:18 PM EDT documented as of this encounter Care Teams Control Systems Eng Relationship Specialty Start Date End Date Caitlyn Bowie MD 3400 [facility] 1 [place] [address] PCP - General Internal Medicine 05/06/21 Henry Kelly MD Pulmonary Department 175 [facility], [address] [place] [address] Physician Pulmonary Disease 09/06/17 06/22/20 documented as of this encounter
--- OUTSIDE RECORDS SUMMARY | 2025-03-26 17:15 | XMS_ITS | Encounter Summary ---
Author Organization [facility] and [facility] Address [address] [address] Care Team Providers Care Mold Dumper Name Role Phone Caitlyn Bowie MD Primary Care Provider +1- [phone] Encounter Details Date Type Department Care Team (Late st Contact Info) Description 10/23/2024 Scanned Document INTERFACE DEFAULT [address] [place] [address] System, Provider Not In Social History Tobacco [...] [facility] Building [address] [place], [place] [phone] Ronald Mills MD [address] [place] [address] [address] [place] [address] documented as of this encounter [...] as of this encounter Care Teams Mold Dumper Relationship Specialty Start Date End Date Caitlyn Bowie MD [address] [address] PCP - General Internal Medicine 05/06/21 documented as of this encounter
--- OUTSIDE RECORDS SUMMARY | 2025-03-26 17:15 | XMS_ITS | Encounter Summary ---
Author Organization [facility] and [facility] Address [address] [place] [address] Care Team Providers Care Picking Belt Operator Name Role Phone Caitlyn Bowie MD Primary Care Provider +1- [phone] Encounter Details Date Type Department Care Team (Late st Contact Info) Description 09/15/2024 Scanned Document INTERFACE DEFAULT [address] [place] [address] System, Provider Not In Social History Tobacco [...] Cancer Center at [facility] 240 [facility] Building [address] [place], [place] [address] Ronald Mills MD [address] [place] [address] [address] [place] [address] documented as of this encounter [...] as of this encounter Care Teams Picking Belt Operator Relationship Specialty Start Date End Date Caitlyn Bowie MD [address] [address] PCP - General Internal Medicine 05/06/21 documented as of this encounter
--- OUTSIDE RECORDS SUMMARY | 2025-03-26 17:15 | XMS_ITS | Encounter Summary ---
Author Organization [facility] and [facility] Address [address] [place] [address] Care Team Providers Care Media Traffic Manager Name Role Phone Caitlyn Bowie MD Primary Care Provider +1- [phone] Encounter Details Date Type Department Care Team (Late st Contact Info) Description 12/16/2016 Scanned Document [facility] Health Information Management [address] [place] [address] External, Provider Social History Tobacco Use Types [...] [facility] 240 [facility] Building [address] [place], [place] [phone] Ronald Mills MD 240 [facility] Max [address] [place] [address] documented as of this encounter [...] as of this encounter Care Teams Media Traffic Manager Relationship Specialty Start Date End Date Caitlyn Bowie MD 3400 [facility] 1 [place] [address] PCP - General Internal Medicine 05/06/21 Henry Kelly MD Pulmonary Department 175 [facility], [address] [place] [address] Physician Pulmonary Disease 09/06/17 06/22/20 documented as of this encounter
--- OUTSIDE RECORDS SUMMARY | 2025-03-26 17:15 | XMS_ITS | Encounter Summary ---
Author Organization [facility] and [facility] Address [address] [place] [address] Care Team Providers Care Dramatic Teacher Name Role Phone Caitlyn Bowie MD Primary Care Provider +1- [phone] Encounter Details Date Type Department Care Team (Late st Contact Info) Description 12/14/2016 Scanned Document [facility] Health Information Management [address] [place] [address] External, Provider Social History Tobacco Use Types [...] [facility] Center at [facility] 240 [facility] Building [address] [place], [place] [phone] Ronald Mills MD 240 [facility] A1 [place] [address] documented as of this encounter Visit Diagnoses Not on filedocumented in this encounter Additional Health Concerns Infection Onset Date Last Indicated Resolved Time COVID-19 03/05/2022 03/05/2022 03/15/2022 7:18 PM EDT documented as of this encounter Care Teams Dramatic Teacher Relationship Specialty Start Date End Date Caitlyn Bowie MD 3400 [facility] 1 [place] [address] PCP - General Internal Medicine 05/06/21 Henry Kelly MD Pulmonary Department 175 [facility], [address] [place] [address] Physician Pulmonary Disease 09/06/17 06/22/20 documented as of this encounter
--- OUTSIDE RECORDS SUMMARY | 2025-03-26 17:15 | XMS_ITS | Encounter Summary ---
Author Organization [facility] and [facility] Address [address] [place] [address] Care Team Providers Care Laundry Attendant Name Role Phone Caitlyn Bowie MD Primary Care Provider +1- [phone] Encounter Details Date Type Department Care Team (Late st Contact Info) Description 06/17/2016 Scanned Document [facility] Health Information Management [address] [place] [address] External, Provider Social History Tobacco Use Types [...] [facility] Building [address] [place], [place] [phone] Ronald Mills MD 240 [facility] Max [address] [place] [address] documented as of this encounter Procedures Procedure Name Priority Date/Time Associated Diagnosis Comments XRAY RESULT SCAN Routine 06/17/2016 documented in this encounter Results * Xray Result Scan (06/17/2016) us Provider External IMG SCAN REPORTS Final Result [facility] [place], [place], [facility] documented in this encounter Visit Diagnoses Not on filedocumented in this encounter Additional Health Concerns Infection Onset Date Last Indicated Resolved Time COVID-19 03/05/2022 03/05/2022 03/15/2022 7:18 PM EDT documented as of this encounter Care Teams Laundry Attendant Relationship Specialty Start Date End Date Caitlyn Bowie MD 3400 [facility] 1 [place] [address] PCP - General Internal Medicine 05/06/21 Henry Kelly MD Pulmonary Department [address] [place] [address], [address] [place] [address] Physician Pulmonary Disease 09/06/17 06/22/20 documented as of this encounter
--- OUTSIDE RECORDS SUMMARY | 2025-03-26 17:15 | XMS_ITS | Encounter Summary ---
Author Organization [facility] and [facility] Address [address] [place] [address] Care Team Providers Care Management Development Specialist Name Role Phone Caitlyn Bowie MD Primary Care Provider +1- [phone] Encounter Details Date Type Department Care Team (Late st Contact Info) Description 10/10/2016 Scanned Document [facility] Health Information Management [address] [place] [address] External, Provider Social History Tobacco Use Types [...] [facility] 240 [facility] Building [address] [place], [place] [phone] Ronald Mills MD 240 [facility] A1 [place] [address] documented as of this encounter Visit Diagnoses Not on filedocumented in this encounter Additional Health Concerns Infection Onset Date Last Indicated Resolved Time COVID-19 03/05/2022 03/05/2022 03/15/2022 7:18 PM EDT documented as of this encounter Care Teams Management Development Specialist Relationship Specialty Start Date End Date Caitlyn Bowie MD 3400 [facility] 1 [place] [address] PCP - General Internal Medicine 05/06/21 Henry Kelly MD Pulmonary Department 175 [facility], [address] [place] [address] Physician Pulmonary Disease 09/06/17 06/22/20 documented as of this encounter
--- OUTSIDE RECORDS SUMMARY | 2025-03-26 17:15 | XMS_ITS | Encounter Summary ---
Author Organization [facility] and [facility] Address [address] [place] [address] Care Team Providers Care Bridal Sales Consultant Name Role Phone Caitlyn Bowie MD Primary Care Provider +1- [phone] Encounter Details Date Type Department Care Team (Late st Contact Info) Description 07/08/2016 Scanned Document [facility] Health Information Management [address] [place] [address] External, Provider Social History Tobacco Use Types [...] [facility] 240 [facility] Building [address] [place], [place] [address] Ronald Mills MD 240 [facility] Max [address] [place] [address] documented as of this encounter Procedures Procedure Name Priority Date/Time Associated Diagnosis Comments LAB SCAN Routine 07/08/2016 documented in this encounter Results * Lab Scan (07/08/2016) Blood specimen (specimen) us Provider External LAB BLOOD ORDERABLES Final Res ult [facility] documented in this encounter Visit Diagnoses Not on filedocumented in this encounter Additional Health Concerns Infection Onset Date Last Indicated Resolved Time COVID-19 03/05/2022 03/05/2022 03/15/2022 7:18 PM EDT documented as of this encounter Care Teams Bridal Sales Consultant Relationship Specialty Start Date End Date Caitlyn Bowie MD 3400 [facility] 1 [place] [address] PCP - General Internal Medicine 05/06/21 Henry Kelly MD Pulmonary Department 175 [facility], [address] [place] [address] Physician Pulmonary Disease 09/06/17 06/22/20 documented as of this encounter
--- OUTSIDE RECORDS SUMMARY | 2025-03-26 17:15 | XMS_ITS | Encounter Summary ---
Author Organization [facility] Address [address] [place] [address] Care Team Providers Care Machine Ii Trimmer Name Role Phone Caitlyn Bowie MD Primary Care Provider +1- [phone] Encounter Details Date Type Department Care Team (Late st Contact Info) Description 04/08/2024 Scanned Document INTERFACE DEFAULT [address] [place] [address] System, Provider Not In Social History Tobacco [...] [place] [address] [facility] [address] [place], [place] [id number] Ronald Mills MD [address] [place] [address] [address] [place] [address] documented as of this encounter [...] as of this encounter Care Teams Machine Ii Trimmer Relationship Specialty Start Date End Date Caitlyn Bowie MD [address] [address] PCP - General Internal Medicine 05/06/21 documented as of this encounter
--- OUTSIDE RECORDS SUMMARY | 2025-03-26 17:15 | XMS_ITS | Encounter Summary ---
Author Organization [facility] and [facility] Address [address] [place] [address] Care Team Providers Care Overhauler Bus Truck Name Role Phone Caitlyn Bowie MD Primary Care Provider +1- [phone] Encounter Details Date Type Department Care Team (Late st Contact Info) Description 08/08/2024 Scanned Document INTERFACE DEFAULT [address] [place] [address] System, Provider Not In Social History Tobacco [...] [facility] [address] [facility] [address] [place], [place] [phone] Ronald Mills MD [address] [place] [address] [address] [place] [address] documented as of this encounter [...] documented as of this encounter Care Teams Overhauler Bus Truck Relationship Specialty Start Date End Date Caitlyn Bowie MD [address] [address] PCP - General Internal Medicine 05/06/21 documented as of this encounter
--- OUTSIDE RECORDS SUMMARY | 2025-03-26 17:15 | XMS_ITS | Encounter Summary ---
Author Organization [facility] and [facility] Address [address] [place] [address] Care Team Providers Care Sign Language Instructor Name Role Phone Caitlyn Bowie MD Primary Care Provider +1- [phone] Encounter Details Date Type Department Care Team (Late st Contact Info) Description 04/04/2016 Scanned Document [facility] Health Information Management [address] [place] [address] External, Provider Social History Tobacco Use Types [...] [facility] Building [address] [place], [place] [id number] Ronald Mills MD 240 [facility] [address] [place] [address] documented as of this encounter Procedures Procedure Name Priority Date/Time Associated Diagnosis Comments LAB SCAN Routine 04/04/2016 documented in this encounter Results * Lab Scan (04/04/2016) Blood specimen (specimen) us Provider External LAB BLOOD ORDERABLES Final Res ult [facility] documented in this encounter Visit Diagnoses Not on filedocumented in this encounter Additional Health Concerns Infection Onset Date Last Indicated Resolved Time COVID-19 03/05/2022 03/05/2022 03/15/2022 7:18 PM EDT documented as of this encounter Care Teams Sign Language Instructor Relationship Specialty Start Date End Date Caitlyn Bowie MD 3400 [facility] 1 [place] [address] PCP - General Internal Medicine 05/06/21 Henry Kelly MD Pulmonary Department 175 [facility], [address] [place] [address] Physician Pulmonary Disease 09/06/17 06/22/20 documented as of this encounter
--- OUTSIDE RECORDS SUMMARY | 2025-03-26 17:15 | XMS_ITS | Encounter Summary ---
Author Organization [facility] and [facility] Address [address] [place] [address] Care Team Providers Care Gas Roller Operator Name Role Phone Caitlyn Bowie MD Primary Care Provider +1- [phone] Encounter Details Date Type Department Care Team (Late st Contact Info) Description 04/19/2024 Scanned Document INTERFACE DEFAULT [address] [place] [address] System, Provider Not In Social History Tobacco [...] [facility] [address] [facility] Building [address] [place], [place] [address] Ronald Mills MD [address] [place] [address] [address] [place] [address] documented as of this encounter [...] as of this encounter Care Teams Gas Roller Operator Relationship Specialty Start Date End Date Caitlyn Bowie MD [address] [address] PCP - General Internal Medicine 05/06/21 documented as of this encounter
--- OUTSIDE RECORDS SUMMARY | 2025-03-26 17:15 | XMS_ITS | Encounter Summary ---
Author Organization [facility] Address [address] [place] [address] Care Team Providers Care Certified Shorthand Reporter Name Role Phone Caitlyn Bowie MD Primary Care Provider +1- [phone] Encounter Details Date Type Department Care Team (Late st Contact Info) Description 12/16/2016 Scanned Document [facility] Health Information Management [address] [place] [address] External, Provider Social History Tobacco Use Types [...] [facility] Building [address] [place], [place] [phone] Ronald Mills MD 240 [facility] [address] [place] [address] documented as of this encounter [...] as of this encounter Care Teams Certified Shorthand Reporter Relationship Specialty Start Date End Date Caitlyn Bowie MD 3400 [facility] 1 [place] [address] PCP - General Internal Medicine 05/06/21 Henry Kelly MD Pulmonary Department 175 [facility], [address] [place] [address] Physician Pulmonary Disease 09/06/17 06/22/20 documented as of this encounter
--- OUTSIDE RECORDS SUMMARY | 2025-03-26 17:15 | XMS_ITS | Encounter Summary ---
Author Organization [facility] Address [address] [place] [address] Care Team Providers Care Rn On Site Name Role Phone Caitlyn Bowie MD Primary Care Provider +1- [phone] Encounter Details Date Type Department Care Team (Late st Contact Info) Description 09/23/2024 Scanned Document INTERFACE DEFAULT [address] [place] [address] System, Provider Not In Social History Tobacco [...] [facility] Building [address] [place], [place] [address] Ronald Mills MD [address] [place] [address] [address] [place] [address] documented as of this encounter [...] as of this encounter Care Teams Rn On Site Relationship Specialty Start Date End Date Caitlyn Bowie MD [address] [address] PCP - General Internal Medicine 05/06/21 documented as of this encounter
--- OUTSIDE RECORDS SUMMARY | 2025-03-26 17:15 | XMS_ITS | Encounter Summary ---
Author Organization [facility] and [facility] Address [address] [place] [address] Care Team Providers Care It Project Coordinator Name Role Phone Caitlyn Bowie MD Primary Care Provider +1- [phone] Encounter Details Date Type Department Care Team (Late st Contact Info) Description 07/27/2016 Scanned Document Thoracic Oncology Program at [address] [address] Suzy Kong MD [address] [place] [address] Social History Tobacco Use Types Packs/Day [...] PM EDT Telemedicine Cancer Center at [address] [place], [place] [phone] Ronald Mills MD 240 [facility] [address] [place] [address] documented as of this encounter Visit Diagnoses Not on filedocumented in this encounter Additional Health Concerns Infection Onset Date Last Indicated Resolved Time COVID-19 03/05/2022 03/05/2022 03/15/2022 7:18 PM EDT documented as of this encounter Care Teams It Project Coordinator Relationship Specialty Start Date End Date Caitlyn Bowie MD 3400 [facility] Max 1 [place] [address] PCP - General Internal Medicine 05/06/21 Henry Kelly MD Pulmonary Department 175 [facility], [address] [place] [address] Physician Pulmonary Disease 09/06/17 06/22/20 documented as of this encounter
--- OUTSIDE RECORDS SUMMARY | 2025-03-26 17:15 | XMS_ITS | Clinical Summary ---
Author Organization [facility], Address [address] [place] [address] [place] [address] Phone Care Team Providers Care Para Professional Name Role Phone Caitlyn Bowie MD Primary Care Provider +1- [phone] Allergies Active Allergy Reactions Criticality Noted Date [...] Encounters Date Type Department Care Team Description 03/24/2025 Documentation Only [facility] [address] [place] [address] Marina Abdi 03/17/2025 Documentation Only [facility] [address] [place] [address] Marina Abdi 03/17/2025 Office Communication [facility] [address] [place] [address] Marina Abdi 03/17/2025 Orders Only [facility], [address] [place] [address] Marina Abdi Smells of urine (Primary [...] Visit [facility], [address] [place] [address] Rubén Ashraf MD [address] [facility] [address] [place] [address] Health Maintenance Due Date Last Done Comments Influenza Vaccine (#1) 2025 0, 04/22/2019, 04/18/2016 Pneumococcal Vaccine: 50+ Years Completed 08/31/2021, 03/25/2016, 09/17/2015, Additional history exists Hepatitis B Vaccine Aged Out No longe r eligible based on patient's age to complete this topic Insurance Medicare [facility] Care Teams Para Professional Relationship Specialty Start Date End Date Caitlyn Bowie MD [address] [place], [place] PCP - General Internal Medicine 09/24/24
--- OUTSIDE RECORDS SUMMARY | 2025-03-26 17:15 | XMS_ITS | Encounter Summary ---
Author Organization [facility] and [facility] Address [address] [place] [address] Care Team Providers Care Tester Regulator Name Role Phone Caitlyn Bowie MD Primary Care Provider +1- [phone] Encounter Details Date Type Department Care Team (Late st Contact Info) Description 04/23/2024 Scanned Document INTERFACE DEFAULT [address] [place] [address] System, Provider Not In Social History Tobacco [...] [facility] [address] [facility] Building [address] [place], [place] [phone] Ronald Mills MD [address] [place] [address] [address] [place] [address] documented as of this encounter [...] as of this encounter Care Teams Tester Regulator Relationship Specialty Start Date End Date Caitlyn Bowie MD [address] [address] PCP - General Internal Medicine 05/06/21 documented as of this encounter
--- OUTSIDE RECORDS SUMMARY | 2025-03-26 17:15 | XMS_ITS | Encounter Summary ---
Author Organization [facility] and [facility] Address [address] [place] [address] Care Team Providers Care Bar Catcher Name Role Phone Caitlyn Bowie MD Primary Care Provider +1- [phone] Encounter Details Date Type Department Care Team (Late st Contact Info) Description 12/14/2016 Scanned Document [facility] Health Information Management [address] [place] [address] External, Provider Social History Tobacco Use Types [...] [facility] [address] [facility] Building [address] [place], [place] [phone] Ronald Mills MD 240 [facility] [address] [place] [address] documented as of [...] as of this encounter Care Teams Bar Catcher Relationship Specialty Start Date End Date Caitlyn Bowie MD 3400 [facility] 1 [place] [address] PCP - General Internal Medicine 05/06/21 Henry Kelly MD Pulmonary Department 175 [facility], [address] [place] [address] Physician Pulmonary Disease 09/06/17 06/22/20 documented as of this encounter
--- OUTSIDE RECORDS SUMMARY | 2025-03-26 17:15 | XMS_ITS | Encounter Summary ---
Author Organization [facility] and [facility] Address [address] [place] [address] Care Team Providers Care Tying Machine Operator Lumber Name Role Phone Caitlyn Bowie MD Primary Care Provider +1- [phone] Encounter Details Date Type Department Care Team (Late st Contact Info) Description 07/27/2016 Scanned Document Thoracic Oncology Program at [address] [address] Suzy Kong MD [address] [place] [address] Social History Tobacco Use Types Packs/Day [...] PM EDT Telemedicine Cancer Center at [address] [place], [place] [phone] Ronald Mills MD 240 [facility] [address] [place] [address] documented as of this encounter Visit Diagnoses Not on filedocumented in this encounter Additional Health Concerns Infection Onset Date Last Indicated Resolved Time COVID-19 03/05/2022 03/05/2022 03/15/2022 7:18 PM EDT documented as of this encounter Care Teams Tying Machine Operator Lumber Relationship Specialty Start Date End Date Caitlyn Bowie MD 3400 [facility] Max 1 [place] [address] PCP - General Internal Medicine 05/06/21 Henry Kelly MD Pulmonary Department 175 [facility], [address] [place] [address] Physician Pulmonary Disease 09/06/17 06/22/20 documented as of this encounter
--- OUTSIDE RECORDS SUMMARY | 2025-03-26 17:15 | XMS_ITS | Encounter Summary ---
Author Organization [facility] Address [address] [place] [address] Care Team Providers Care Human Resources Advisor Name Role Phone Caitlyn Bowie MD Primary Care Provider +1- [phone] Encounter Details Date Type Department Care Team (Late st Contact Info) Description 06/17/2016 Scanned Document [facility] Health Information Management [address] [place] [address] External, Provider Social History Tobacco Use Types [...] [facility] Building [address] [place], [place] [address] Ronald Mills MD 240 [facility] A1 [place] [address] documented as of this encounter Visit Diagnoses Not on filedocumented in this encounter Additional Health Concerns Infection Onset Date Last Indicated Resolved Time COVID-19 03/05/2022 03/05/2022 03/15/2022 7:18 PM EDT documented as of this encounter Care Teams Human Resources Advisor Relationship Specialty Start Date End Date Caitlyn Bowie MD 3400 [facility] 1 [place] [address] PCP - General Internal Medicine 05/06/21 Henry Kelly MD Pulmonary Department 175 [place] [facility], [address] [place] [address] Physician Pulmonary Disease 09/06/17 06/22/20 documented as of this encounter
== END 2025-03-26 14:25 | disposition home or self-care (01) ==
PROVIDERS: PCP Internal Medicine
DX: I25.118 Atherosclerotic heart disease of native coronary artery with other forms of angina pectoris (principal); I50.32 Chronic diastolic (congestive) heart failure; I27.20 Pulmonary hypertension, unspecified; Z98.890 Other specified postprocedural states; Z95.818 Presence of other cardiac implants and grafts; M79.89 Other specified soft tissue disorders; Z09 Encounter for follow-up examination after completed treatment for conditions other than malignant neoplasm
CPT/HCPCS: 99214; G2211

== ENCOUNTER 2025-03-26 13:21 | Outpatient (REF) | payer MEDICARE, SELFPAY ==
[2025-03-26 16:09] LABS: Anion Gap 11 (12-20); Blood Urea Nitrogen 27 mg/dL (9-16); Calcium 10.5 mg/dL (8.4-10.2); Carbon Dioxide 35 mmol/L (22-29); Chloride 100 mmol/L (96-108); Estimated Glomerular Filt Rate > 60; Potassium 4.2 mmol/L (3.3-5.1); Sodium 142 mmol/L (135-145)
--- OUTSIDE RECORDS SUMMARY | 2025-03-26 18:28 | XMS_ITS | Patient Health Record ---
Author Organization [facility] Address [address] [place] [address] Care Team Providers Care Milk Vendor Name Role Phone Shruti Bowieberly Primary Care Provider Cristian Fountain Unavailable [phone] Allergies Allergen (clinical drug ingredient) Drug/Non Drug Allergy documented on EMR Reaction Allergy Type Onset Date Status ipitromium bromide (uncoded) Unknown Allergy Active Avocado [...] moxifloxacin Avelox Unknown Drug Allergy Acti ve Reason For Referral No Information Medications Medication [...] Status W/U Status Risk Notes Problem Diverticulitis (936033579) Diverticulitis (K57.92) Active confirmed Problem Irritable bowel syndrome characterized by constipation (459188718) Irritable bowel syndrome with constipation (K58.9) Active confirmed Problem Gastroesophageal reflux disease (730466787) GERD (gastroesophageal reflux disease) (K21.9) Active confirmed Plan Of Treatment No Information Insurance Providers Payer Name Payer Address Payer Phone Subscriber Number Group Number Insured Name Patient Relationship to Insured Coverage Start Date Coverage End Date MEDICARE OF [place] [address] [place] [address] [id number] CINDA WATSON Self - patient is the insured MEDEX ATTN CLAIMS [address] [place] [address] [id number] CINDA WATSON Self - patient is the [...] a nd 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 Hogan at [facility] GERD-has had EGD's with Dr. Gomes Pneumomias Hypothyroidism Surgical History Surgery Date(Month/Year) Tonsils and adenoids BOLA Lung cancer-Left lower lobectomy at [facility], XRT, Chemo 2008
--- OUTSIDE RECORDS SUMMARY | 2025-03-26 18:28 | XMS_ITS | Patient Health Record ---
Author Organization [facility] Address [address] [facility] [address] [place] [address] Care Team Providers Care Patch Worker Name Role Phone EVELIN RAMSAY Primary Care Provider Yenny Hou Unavailable [phone] Allergies Allergen (clinical drug ingredient) Drug/Non Drug [...] UROBILINOGEN Neg BILIRUBIN Neg BLOOD Neg Urinalysis, Complete-[id number] Reviewed date:05/04/2024 11:35:42 PM Interpretation: Performing Lab:[facility], [address] [place] [address], Phone - [phone], Director - Arely Notes/Report: Specific [place] 1.009 1.005-1.030 pH 6.5 5.0-7.5 Urine-Color Yellow [...] Bacteria None seen None seen/Few Urine Culture, Routine-[id number] 7 Reviewed date:05/04/2024 11:35:22 PM Interpretation: Performing Lab:[facility], [address] [place] [address], Phone - [phone], Director - Arely Notes/Report: Urine Culture, Routine Final report Result 1 Culture shows less than 10,000 colony forming units of bacteria per milliliter of urine. This colony count is not generally considered to be clinically significant. PDF Report Reviewed date:05/04/2024 11:35:04 PM Interpretation: Performing Lab:[facility], [address] [place] [address], Phone - [phone], Director - Arely Notes/Report: Reason For Referral [...] 1 ORAL daily; Durati on: -3 [facility] 06/10/2014 Active ZyrTEC Allergy 10MG 1 [...] 1 ORAL at bedtime; Duration: -3 [facility] 06/10/2014 Active Meclizine HCl 25 MG 1 tablet as needed Orally [facility] 06/10/2014 Active Albuterol Sulfate (2.5 MG/3ML)0.083% Inhalation 4 x a day prn 06/10/2014 Active Valium 5MG 1 tablet as needed O RAL at bedtime, 1/2 tab prn during the day [facility] 06/10/2014 Active Social History Tobacco Use: [...] Status Risk Notes Problem Postmenopausal atrophic vaginitis (17497646) Postmenopausal atrophic vaginitis (N95.2) Active confirmed Problem Age-related osteoporosis (489380311) Age-related osteoporosis without current pathological fracture (M81.0) Active confirmed Problem Urgent desire to urinate (17454283) Urgency of urination (R39.15) Active confirmed Problem 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 Problem Chronic systolic heart failure (996904067) Chronic systolic (congestive) heart failure (I50.22) Active confirmed Problem Chronic obstructive pulmonary disease (18261421) Chronic obstructive pulmonary disease, unspecified (J44.9) Active confirmed Problem Functional urinary incontinence (288076955) Functional 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) Active confirmed Problem Personal history of primary malignant neoplasm of bronchus (011144550) 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) Active confirmed Vital Signs Temperature 97.7 degrees Fahrenheit 07/18/2024 Blood pressure diastolic 62 mm Hg 07/18/2024 Height 63 in 07/18/2024 Blood pressure systolic 102 mm Hg 07/18/2024 Weight 126 lbs 07/18/2024 BMI 22.32 kg/m2 07/18/2024 Encounters Encounter Location Date Provider Diagnosis Total [address] [address] 05/03/2024 Yennydorothy Elizalde Urgency of urination R39.15 and Abscess of vulva N76.[address] [address] 05/10/2024 Yenny Elizalde Abscess of vulva N76 .[address] [address] 05/17/2024 Yenny Elizalde Abscess of vulva N76 .[address] [address] 07/09/2024 Yenny Tonio Urgency of urination R39.15 ; Acute vaginitis N76.0 and Postmenopausal atrophic vaginitis N95.[address] [address] 07/18/2024 Yenny Elizalde Encounter for screening mammogram for malignant neoplasm of breast Z12.31 and Mastodynia N64.[address] [address] 05/10/2024 Yenny Lovettva Total [address] [address] 05/13/2024 Yenny Elizalde [facility] [address] [facility] [address] [place] [address] 06/11/2024 Yenny Elizalde Assessments Encounter Date Diagnosis [...] [facility] AND DISCUSSED THIS PAT. [...] Date MEDICARE [address] [place]ED[place] NIEVES [id number] SHIRLEY CINDA Self - patient is the insured MEDEX [address] [place] [address] [id number] DANIEL WATSONE Self - patient is [...]
== END 2025-03-26 13:22 | disposition home or self-care (01) ==
LOC: HO.LAB 13:21
PROVIDERS: PCP Internal Medicine; Visit Provider Internal Medicine Cardiovascular Disease
DX: I50.32 Chronic diastolic (congestive) heart failure (principal); I27.20 Pulmonary hypertension, unspecified; I25.119 Atherosclerotic heart disease of native coronary artery with unspecified angina pectoris; Z98.890 Other specified postprocedural states; Z95.818 Presence of other cardiac implants and grafts; M79.89 Other specified soft tissue disorders; Z09 Encounter for follow-up examination after completed treatment for conditions other than malignant neoplasm; J44.9 Chronic obstructive pulmonary disease, unspecified
CPT/HCPCS: 36415; 80048; 99212

== ENCOUNTER 2025-03-28 11:04 | Outpatient (REF) | payer MEDICARE, SELFPAY ==
--- NOTE | ~2025-03-28 | XR_ITS ---
EXAMINATION: XR PARANASAL SINUSES 3 VIEWS HISTORY: R05.9 - Cough, unspecified COMPARISON: There are no prior studies available for comparison. FINDINGS: Four views of the paranasal sinuses are submitted. The bilateral frontal, maxillary, ethmoid, and sphenoid sinuses are well-aerated and clear. XR/XR sinus min 3V IMPRESSION: Unremarkable examination of the paranasal sinuses. Electronically signed by: Cristian Rhodes MD 03/28/2025 12:48 PM EDT RP
--- NOTE | ~2025-03-28 | XR_ITS ---
EXAMINATION: XR CHEST 2 VIEWS HISTORY: R07.81 - Pleurodynia COMPARISON: Comparison is made with the prior examination dated 03/12/2025. FINDINGS: PA and lateral views of the chest are submitted. Again seen is a small left pleural effusion and adjacent scarring. There is linear subsegmental atelectasis at the right lung base. The lungs are otherwise clear. There is no pneumothorax or pulmonary vascular congestion. The heart is enlarged. A metallic device is again. The aorta is calcified. There is degenerative disc disease of the spine. XR/XR chest 2V IMPRESSION: Cardiomegaly. Small left pleural effusion with adjacent scarring without change. No acute cardiopulmonary abnormality. Electronically signed by: Cristian Rhodes MD 03/28/2025 12:43 PM EDT
--- OUTSIDE RECORDS SUMMARY | 2025-03-28 11:45 | XMS_ITS | Encounter Summary ---
Author Organization [facility] Address [address] [place] [address] Care Team Providers Care Rail Track Layer Name Role Phone Victorino Martin MD Primary Care Provider Sharon Odonnell Primary Care Provider Brennan Castro MD Primary Care Provider UnavailHayden Fernandez MD Unavailable [phone] Pallavi Flood NP Unavailable [phone]- [phone] Caitlyn Bowie MD Primary Care Provider Johnathon shaver Encounter Details Date Type Department Care Team Description 06/27/2018 Lock Stitch Channeler Report Medical Records [address] [place] [address] Mick Newsome MD Social History Tobacco Use [...] on filedocumented in this encounter Care Teams Rail Track Layer Relationship Specialty Start Date End Date Victorino Martin MD PCP - General Internal Medicine 12/21/17 08/01/18 Sharon Vides PCP - General Internal Medicine 08/02/18 05/26/20 Brennan Burnett MD PCP - General Internal Medicine 05/27/20 12/07/21 Caitlyn Bowie MD [address] [place] [address] PCP - General Internal Medicine 12/08/21 Hayden Shah MD [address] [place] [phone] Specialist Cardiovascular Disease 09/01/20 Pallavi Folod NP [address] [place] [phone] Cardiology 09/01/20 documented as of this encounter
--- OUTSIDE RECORDS SUMMARY | 2025-03-28 11:45 | XMS_ITS | Encounter Summary ---
Author Organization [facility] Address [address] [place] [address] Care Team Providers Care Rn Urology Name Role Phone Victorino Martin MD Primary Care Provider UnavailSharon Kimbrough Primary Care Provider Unava ilable Brennan Burnett MD Primary Care Provider Unavailab Hayden Montes MD Unavailable Pallavi Flood NP Unavailable [phone]- [phone] Caitlyn Bowei MD Primary Care Provider Unava ilable Reason for Visit * Reason Onset Date Comments Orders Call 07/30/2018 ultrasound Encounter Details Date Type Department Care Team Description 07/30/2018 Telephone Pulmonology - [address] [place] [address] Henry Kelly MD Orders Call [...] have no order. Please fax order to [phone]. documented in this encounter Plan of Treatment Not on file documented as of this encounter Visit Diagnoses Not on filedocumented in this encounter Care Teams Rn Urology Relationship Specialty Start Date End Date Victorino Martin MD PCP - General Internal Medicine 12/21/17 08/01/18 Sharon Vides PCP - General Internal Medicine 08/02/18 05/26/20 Brennan Burnett MD PCP - General Internal Medicine 05/27/20 12/07/21 Caitlyn Bowie MD [address] [place] [address] PCP - General Internal Medicine 12/08/21 Hayden Shah MD [address] [place] [address] Specialist Cardiovascular Disease 09/01/20 Pallavi Flood NP [address] [place] [address] Cardiology 09/01/20 documented as of this encounter
--- OUTSIDE RECORDS SUMMARY | 2025-03-28 11:45 | XMS_ITS | Encounter Summary ---
Author Organization [facility] and [facility] Address [address] [place] [address] Care Team Providers Care Project Management It Specialist Name Role Phone Caitlyn Bowie MD Primary Care Provider +1- [phone] Encounter Details Date Type Department Care Team (Late st Contact Info) Description 05/14/2020 Documentation Hematology Program at [address] [address] Taya Nuno RN Social History Tobacco Use [...] PM EDT Telemedicine Cancer Center at [address] [place] [address] Ronald Mills MD [address] [place] [address] documented as of this encounter Visit Diagnoses Not on filedocumented in this encounter Additional Health Concerns Infection Onset Date Last Indicated Resolved Time COVID-19 03/05/2022 03/05/2022 03/15/2022 7:18 PM EDT Assessment Noted Time PHQ-9 Depression Total Score: 2 11/07/19 19 2:06 PM EDT documented as of this encounter Care Teams Project Management It Specialist Relationship Specialty Start Date End Date Caitlyn Bowie MD 34[address] [facility] [address] [place] [address] PCP - General Internal Medicine 05/06/21 Henry Kelly MD Pulmonary Department 175 [facility], [address] [place] [address] Physician Pulmonary Disease 09/06/17 06/22/20 documented as of this encounter
--- OUTSIDE RECORDS SUMMARY | 2025-03-28 11:45 | XMS_ITS | Encounter Summary ---
Author Organization [facility] and [facility] Address [address] [place] [address] Care Team Providers Care Software Quality Automation Engineer Name Role Phone Caitlyn Bowie MD Primary Care Provider +1- [phone] Encounter Details Date Type Department Care Team (Late st Contact Info) Description 12/16/2016 Scanned Document [facility] Health Information Management [address] [place] [address] External, Provider Social History Tobacco Use Types [...] Center at [facility] 240 [facility] [address] [place], [place] [phone] Ronald Mills MD 240 [facility] [address] [place] [address] documented as of [...] as of this encounter Care Teams Software Quality Automation Engineer Relationship Specialty Start Date End Date Caitlyn Bowie MD 3400 [facility] 1 [place] [address] PCP - General Internal Medicine 05/06/21 Henry Kelly MD Pulmonary Department 175 [facility], [address] [place] [address] Physician Pulmonary Disease 09/06/17 06/22/20 documented as of this encounter
--- OUTSIDE RECORDS SUMMARY | 2025-03-28 11:45 | XMS_ITS | Encounter Summary ---
Author Organization [facility] and [facility] Address [address] [place] [address] Care Team Providers Care Network Firewall Engineer Name Role Phone Caitlyn Bowie MD Primary Care Provider +1- [phone] Encounter Details Date Type Department Care Team (Late st Contact Info) Description 02/20/2017 Scanned Document [facility] Health Information Management [address] [place] [address] External, Provider Social History Tobacco Use Types [...] Cancer Center at [facility] 240 [facility] Building [address] [place], [place] [address] Ronald Mills MD 240 [facility] [address] [place] [address] documented as of this encounter [...] as of this encounter Care Teams Network Firewall Engineer Relationship Specialty Start Date End Date Caitlyn Bowie MD 3400 [facility] 1 [place] [address] PCP - General Internal Medicine 05/06/21 Henry Kelly MD Pulmonary Department 175 [facility], [address] [place] [address] Physician Pulmonary Disease 09/06/17 06/22/20 documented as of this encounter
--- OUTSIDE RECORDS SUMMARY | 2025-03-28 11:45 | XMS_ITS | Encounter Summary ---
Author Organization [facility] and [facility] Address [address] [place] [address] Care Team Providers Care Septic Tank Installer Name Role Phone Caitlyn Bowie MD Primary Care Provider +1- [phone] Encounter Details Date Type Department Care Team (Late st Contact Info) Description 09/16/2020 Scanned Document [facility] Health Information Management [address] [place] [address] External, Provider Social History Tobacco Use Types [...] – [facility] 240 [facility] Building [address] [place], [place] [id number] Ronald Mills MD [address] [place] [address] [address] [place] [address] documented as of this encounter Procedures Procedure [...] documented as of this encounter Care Teams Septic Tank Installer Relationship Specialty Start Date End Date Caitlyn Bowie MD [address] [address] PCP - General Internal Medicine 05/06/21 documented as of this encounter
--- OUTSIDE RECORDS SUMMARY | 2025-03-28 11:45 | XMS_ITS | Encounter Summary ---
Author Organization [facility] Address [address] [place] [address] Care Team Providers Care Button Tufter Name Role Phone Caitlyn Bowie MD Primary Care Provider +1- [phone] Encounter Details Date Type Department Care Team (Late st Contact Info) Description 02/20/2017 Scanned Document [facility] Health Information Management [address] [place] [address] External, Provider Social History Tobacco Use Types [...] at [facility] 240 [facility] [address] [place], [place] [phone] Ronald Mills MD 240 [facility] [address] [place] [address] documented as of this encounter [...] as of this encounter Care Teams Button Tufter Relationship Specialty Start Date End Date Caitlyn Bowie MD 3400 [facility] [address] 1 [place] [address] PCP - General Internal Medicine 05/06/21 Henry Kelly MD Pulmonary Department 175 [facility], [address] [place] [address] Physician Pulmonary Disease 09/06/17 06/22/20 documented as of this encounter
--- OUTSIDE RECORDS SUMMARY | 2025-03-28 11:45 | XMS_ITS | Encounter Summary ---
Author Organization [facility] and [facility] Address [address] [place] [address] Care Team Providers Care Commercial Solar Sales Consultant Name Role Phone Caitlyn Bowie MD Primary Care Provider +1- [phone] Encounter Details Date Type Department Care Team (Late st Contact Info) Description 02/02/2017 Scanned Document [facility] Health Information Management [address] [place] [address] External, Provider Social History Tobacco Use Types [...] Center at [facility] 240 [facility] Building [address] [place], [place] [id number] Ronald Mills MD 240 [facility] [address] [place] [address] documented as of this encounter Visit Diagnoses Not on filedocumented in this encounter Additional Health Concerns Infection Onset Date Last Indicated Resolved Time COVID-19 03/05/2022 03/05/2022 03/15/2022 7:18 PM EDT documented as of this encounter Care Teams Commercial Solar Sales Consultant Relationship Specialty Start Date End Date Caitlyn Bowie MD [address] [facility] 1 [place] [address] PCP - General Internal Medicine 05/06/21 Henry Kelly MD Pulmonary Department 175 [facility], [address] [place] [address] Physician Pulmonary Disease 09/06/17 06/22/20 documented as of this encounter
--- OUTSIDE RECORDS SUMMARY | 2025-03-28 11:45 | XMS_ITS | Encounter Summary ---
Author Organization [facility] and [facility] Address [address] [place] [address] Care Team Providers Care Conveyor Man Name Role Phone Caitlyn Bowie MD Primary Care Provider +1- [phone] Encounter Details Date Type Department Care Team (Late st Contact Info) Description 05/19/2020 Scanned Document Cancer Center at [address] [address] External, Provider Social History Tobacco Use Types [...] Telemedicine Cancer Center at [facility] 240 [facility] Building [address] [place], [place] [address] Ronald Mills MD [address] [place] [address] [address] [place] [address] documented as of this encounter [...] as of this encounter Care Teams Conveyor Man Relationship Specialty Start Date End Date Caitlyn Bowie MD 3400 [facility] 1 [place] [address] PCP - General Internal Medicine 05/06/21 Henry Kelly MD Pulmonary Department 175 [facility], [address] [place] [address] Physician Pulmonary Disease 09/06/17 06/22/20 documented as of this encounter
--- OUTSIDE RECORDS SUMMARY | 2025-03-28 11:45 | XMS_ITS | Encounter Summary ---
Author Organization [facility] and [facility] Address [address] [place] [address] Care Team Providers Care Collet Maker Name Role Phone Caitlyn Bowie MD Primary Care Provider +1- [phone] Encounter Details Date Type Department Care Team (Late Contact Info) Description 09/18/2020 Scanned Document [facility] Health Information Management [address] [place] [address] External, Provider Social History Tobacco Use Types [...] Cancer Center at [facility] 240 [facility] Building [address] [place], [place] [phone] Ronald Mills MD [address] [place] [address] [address] [place] [address] documented as of this encounter [...] documented as of this encounter Care Teams Collet Maker Relationship Specialty Start Date End Date Caitlyn Bowie MD [address] [address] PCP - General Internal Medicine 05/06/21 documented as of this encounter
--- OUTSIDE RECORDS SUMMARY | 2025-03-28 11:45 | XMS_ITS | Encounter Summary ---
Author Organization [facility] and [facility] Address [address] [place] [address] Care Team Providers Care Aviation Engineer Name Role Phone Caitlyn Bowie MD Primary Care Provider +1- [phone] Encounter Details Date Type Department Care Team (Late st Contact Info) Description 12/19/2016 Scanned Document [facility] Health Information Management [address] [place] [address] External, Provider Social History Tobacco Use Types [...] [facility] 240 [facility] Building [address] [place], [place] [address] Ronald Mills MD 240 [facility] Max [address]1 [place] [address] documented as of this [...] End Date Caitlyn Bowie MD [facility] 1 [place] [address] PCP - General Internal Medicine 05/06/21 Henry Kelly MD Pulmonary Department 175 [facility], [address] [place] [address] Physician Pulmonary Disease 09/06/17 06/22/20 documented as of this encounter
--- OUTSIDE RECORDS SUMMARY | 2025-03-28 11:45 | XMS_ITS | Encounter Summary ---
Author Organization [facility] and [facility] Address [address] [place] [address] Care Team Providers Care Long Wall Shear Operator Name Role Phone Caitlyn Bowie MD Primary Care Provider +1- [phone] Encounter Details Date Type Department Care Team (Late st Contact Info) Description 09/15/2020 Scanned Document INTERFACE DEFAULT [address] [place] [address] System, Provider Not In Social History Tobacco [...] [facility] Building [address] [place] [address] Ronald Mills MD [address] [place] [address] [address] [place] [address] documented as of this encounter Visit Diagnoses Not on filedocumented in this encounter Additional Health Concerns Infection Onset Date Last Indicated Resolved Time COVID-19 03/05/2022 03/05/2022 03/15/2022 7:18 PM EDT Assessment Noted Time PHQ-9 Depression Total Score: 2 11/07/19 19 2:06 PM EDT documented as of this encounter Care Teams Long Wall Shear Operator Relationship Specialty Start Date End Date Caitlny Bowie MD [address] [address] PCP - General Internal Medicine 05/06/21 documented as of this encounter
--- OUTSIDE RECORDS SUMMARY | 2025-03-28 11:45 | XMS_ITS | Encounter Summary ---
Author Organization [facility] and [facility] Address [address] [place] [address] Care Team Providers Care Broadcast Field Supervisor Name Role Phone Caitlyn Bowie MD Primary Care Provider +1- [phone] Encounter Details Date Type Department Care Team (Late st Contact Info) Description 09/15/2020 Scanned Document Cancer Center at [address] [address] External, Provider Social History Tobacco Use Types [...] Telemedicine Cancer Center at [facility] 240 [facility] Building [address] [place], [place] [address] Ronald Mills MD [address] [place] [address] [address] [place] [address] documented as of [...] as of this encounter Care Teams Broadcast Field Supervisor Relationship Specialty Start Date End Date Caitlyn Bowie MD [address] [address] PCP - General Internal Medicine 05/06/21 documented as of this encounter
--- OUTSIDE RECORDS SUMMARY | 2025-03-28 11:45 | XMS_ITS | Encounter Summary ---
Author Organization [facility] Address [address] [place] [address] Care Team Providers Care Instructor Of Nursing Name Role Phone Caitlyn Bowie MD Primary Care Provider +1- [phone] Encounter Details Date Type Department Care Team (Late Contact Info) Description 09/15/2020 Scanned Document [facility] Health Information Management [address] [place] [address] External, Provider Social History Tobacco Use Types [...] at [facility] 240 [facility] Building [address] [place], [place] [phone] Ronald Mills MD [address] [place] [address] [address] [place] [address] documented as of this encounter [...] End Date Caitlyn Bowie MD [address] [address] PCP - General Internal Medicine 05/06/21 documented as of this encounter
--- OUTSIDE RECORDS SUMMARY | 2025-03-28 11:45 | XMS_ITS | Encounter Summary ---
Author Organization [facility] and [facility] Address [address] [place] [address] Care Team Providers Care Recording Studio Setup Worker Name Role Phone Caitlyn Bowie MD Primary Care Provider +1- [phone] Encounter Details Date Type Department Care Team (Late st Contact Info) Description 09/17/2020 Scanned Document [facility] Health Information Management [address] [place] [address] External, Provider Social History Tobacco Use Types [...] Telemedicine Cancer Center at [facility] 240 [facility] Building [address] [place], [place] [address] Ronald Mills MD [address] [place] [address] [address] [place] [address] documented as of this encounter [...] End Date Caitlyn Bowie MD [address] [address] PCP - General Internal Medicine 05/06/21 documented as of this encounter
--- OUTSIDE RECORDS SUMMARY | 2025-03-28 11:45 | XMS_ITS | Encounter Summary ---
Author Organization [facility] and [facility] Address [address] [place] [address] Care Team Providers Care It Assistant Name Role Phone Caitlyn Bowie MD Primary Care Provider +1- [phone] Encounter Details Date Type Department Care Team (Late st Contact Info) Description 07/08/2020 Scanned Document [facility] Health Information Management [address] [place] [address] External, Provider Social History Tobacco Use Types [...] [facility] 240 [facility] Building [address] [place], [place] [address] Ronald Mills MD [address] [place] [address] [address] [place] [address] documented as of this encounter [...] as of this encounter Care Teams It Assistant Relationship Specialty Start Date End Date Caitlyn Bowie MD [address] [address] PCP - General Internal Medicine 05/06/21 documented as of this encounter
--- OUTSIDE RECORDS SUMMARY | 2025-03-28 11:45 | XMS_ITS | Patient Health Record ---
Author Organization [facility] Address [address] [place] [address] Care Team Providers Care Herb Counselor Name Role Phone Shruti Bowieberly Primary Care Provider Cristian [place] Unavailable [phone] Allergies Allergen (clinical drug ingredient) Drug/Non Drug Allergy documented on EMR Reaction Allergy Type Onset Date Status Penicillin Unknown Drug Allergy Active gentamicin gentomycin [...] e novacain (uncoded) Unknown Allergy A ctive Reason For Referral No Information Medications Medication [...] Status W/U Status Risk Notes Problem Diverticulitis (170614455) Diverticulitis (K57.92) Active confirmed Problem Irritable bowel syndrome characterized by constipation (597418838) Irritable bowel syndrome with constipation (K58.9) Active confirmed Problem Gastroesophageal reflux disease (713961002) GERD (gastroesophageal reflux disease) (K21.9) Active confirmed Plan Of Treatment No Information Insurance Providers Payer Name Payer Address Payer Phone Subscriber Number Group Number Insured Name Patient Relationship to Insured Coverage Start Date Coverage End Date MEDICARE OF [place] [address] [place] [address] [id number] CINDA WATSON Self - patient is the insured [employer] ATT[employer] CLAIMS [address] [place] [address] [id number] CINDA WATSON Self - patient is the insured Medical (General) History Medical History History ICD Code [place]-04/2021-sees Dr. 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 Gomes Pneumomias Hypothyroidism Surgical History Surgery Date(Month/Year) Tonsils and adenoids [facility] Lung cancer-Left lower lobectomy at [facility], XRT, Chemo 2008
--- OUTSIDE RECORDS SUMMARY | 2025-03-28 11:45 | XMS_ITS | Encounter Summary ---
Author Organization [facility] and [facility] Address [address] [place] [address] Care Team Providers Care Aircraft Mechanic Structures Name Role Phone Caitlyn Bowie MD Primary Care Provider +1- [phone] Encounter Details Date Type Department Care Team (Late Contact Info) Description 09/16/2020 Scanned Document [facility] Health Information Management [address] [place] [address] External, Provider Social History Tobacco Use Types [...] ([facility] 240 [facility] Building [address] [place], [place] [phone] Ronald Mills MD [address] [place] [address] [address] [place] [address] documented as of this encounter [...] of this encounter Care Teams Aircraft Mechanic Structures Relationship Specialty Start Date End Date Caitlyn Bowie MD [address] [address] PCP - General Internal Medicine 05/06/21 documented as of this encounter
--- OUTSIDE RECORDS SUMMARY | 2025-03-28 11:45 | XMS_ITS | Encounter Summary ---
Author Organization [facility] and [facility] Address [address] [place] [address] Care Team Providers Care Discharge Rn Name Role Phone Caitlyn Bowie MD Primary Care Provider +1- [phone] Encounter Details Date Type Department Care Team (Late st Contact Info) Description 12/16/2016 Scanned Document [facility] Health Information Management [address] [place] [address] External, Provider Social History Tobacco Use Types [...] [facility] 240 [facility] Building [address] [place], [place] [phone] Ronald Mills MD 240 [facility] [address]1 [place] [address] documented as of this encounter Visit Diagnoses Not on filedocumented in this encounter Additional Health Concerns Infection Onset Date Last Indicated Resolved Time COVID-19 03/05/2022 03/05/2022 03/15/2022 7:18 PM EDT documented as of this encounter Care Teams Discharge Rn Relationship Specialty Start Date End Date Caitlyn Bowie MD 3400 [facility] 1 [place] [address] PCP - General Internal Medicine 05/06/21 Henry Kelly MD Pulmonary Department 175 [facility], [address] [place] [address] Physician Pulmonary Disease 09/06/17 06/22/20 documented as of this encounter
--- OUTSIDE RECORDS SUMMARY | 2025-03-28 11:45 | XMS_ITS | Encounter Summary ---
Author Organization [facility] Address [address] [place] [address] Care Team Providers Care Corporate Job Titles Name Role Phone Victorino Martin MD Primary Care Provider UnavailSharon Kimbrough Primary Care Provider Unava ilable Brennan Burnett MD Primary Care Provider Unavailab Hayden Montes MD Unavailable [phone] Pallavi Flood NP Unavailable +1- [phone] Caitlyn Bowie MD Primary Care Provider Unava ilable Reason for Visit * Reason Onset Date Comments Call From Md Office 06/27/2018 Encounter Details Date Type Department Care Team Description 06/27/2018 Telephone Pulmonology - [address] [place] [address] Henry Kelly MD Call From [...] Szymanski calling to speak to Dr. Kelly [phone] documented in this encounter Plan of Treatment Not on file documented as of this encounter Visit Diagnoses Not on filedocumented in this encounter Care Teams Corporate Job Titles Relationship Specialty Start Date End Date Victorino Martin MD PCP - General Internal Medicine 12/21/17 08/01/18 Sharon Vides PCP - General Internal Medicine 08/02/18 05/26/20 Brennan Burnett MD PCP - General Internal Medicine 05/27/20 12/07/21 Caitlyn Bowie MD [address] [place] [address] PCP - General Internal Medicine 12/08/21 Hayden Shah MD [address] [place], [place] [phone] Specialist Cardiovascular Disease 09/01/20 Pallavi Flood NP [address] [place], [place] [phone] Cardiology 09/01/20 documented as of this encounter
--- OUTSIDE RECORDS SUMMARY | 2025-03-28 11:46 | XMS_ITS | Encounter Summary ---
Author Organization [facility] Address [address] [place] [address] Care Team Providers Care Golf Teacher Name Role Phone Caitlyn Bowie MD Primary Care Provider +1- [phone] Encounter Details Date Type Department Care Team (Late st Contact Info) Description 12/16/2016 Scanned Document [facility] Health Information Management [address] [place] [address] External, Provider Social History Tobacco Use Types [...] [facility] 240 [facility] Building [address] [place], [place] [phone] Ronald Mills MD 240 [facility] [address] [place] [address] documented as of this encounter [...] as of this encounter Care Teams Golf Teacher Relationship Specialty Start Date End Date Caitlyn Bowie MD 3400 [facility] 1 [place] [address] PCP - General Internal Medicine 05/06/21 Henry Kelly MD Pulmonary Department 175 [facility], [address] [place] [address] Physician Pulmonary Disease 09/06/17 06/22/20 documented as of this encounter
--- OUTSIDE RECORDS SUMMARY | 2025-03-28 11:46 | XMS_ITS | Encounter Summary ---
Author Organization [facility] and [facility] Address [address] [place] [address] Care Team Providers Care Lokie Engineer Name Role Phone Caitlyn Bowie MD Primary Care Provider +1- [phone] Encounter Details Date Type Department Care Team (Late st Contact Info) Description 04/18/2013 Documentation Hematology Program at [address] [address] Isis Ragland RN Social History Tobacco Use [...] [facility] 240 [facility] Building [address] [place], [place] [phone] Ronald Mills MD [address] [place] [address] [address] [place] [address] documented as of this encounter Visit Diagnoses Not on filedocumented in this encounter Additional Health Concerns Infection Onset Date Last Indicated Resolved Time COVID-19 03/05/2022 03/05/2022 03/15/2022 7:18 PM EDT documented as of this encounter Care Teams Lokie Engineer Relationship Specialty Start Date End Date Caitlyn Bowie MD 3400 [facility] 1 [place] [address] PCP - General Internal Medicine 05/06/21 Henry Kelly MD Pulmonary Department 175 [facility], [address] [place] [address] Physician Pulmonary Disease 09/06/17 06/22/20 documented as of this encounter
--- OUTSIDE RECORDS SUMMARY | 2025-03-28 11:46 | XMS_ITS | Encounter Summary ---
Author Organization [facility] and [facility] Address [address] [place] [address] Care Team Providers Care Specimen Preparation Assistant Name Role Phone Caitlyn Bowie MD Primary Care Provider +1- [phone] Encounter Details Date Type Department Care Team (Late st Contact Info) Description 04/27/2017 Scanned Document [facility] Health Information Management [address] [place] [address] External, Provider Social History Tobacco Use Types [...] [facility] 240 [facility] Building [address] [place], [place] [phone] Ronald Mills MD 240 [facility] A1 [place] [address] documented as of this encounter Visit Diagnoses Not on filedocumented in this encounter Additional Health Concerns Infection Onset Date Last Indicated Resolved Time COVID-19 03/05/2022 03/05/2022 03/15/2022 7:18 PM EDT documented as of this encounter Care Teams Specimen Preparation Assistant Relationship Specialty Start Date End Date Caitlyn Bowie MD 3400 [facility] 1 [place] [address] PCP - General Internal Medicine 05/06/21 Henry Kelly MD Pulmonary Department 175 [facility], [address] [place] [address] Physician Pulmonary Disease 09/06/17 06/22/20 documented as of this encounter
--- OUTSIDE RECORDS SUMMARY | 2025-03-28 11:46 | XMS_ITS | Encounter Summary ---
Author Organization [facility] and [facility] Address 20 [place] [address] Care Team Providers Care Mexican Food Maker Hand Name Role Phone Caitlyn Bowie MD Primary Care Provider +1- [phone] Encounter Details Date Type Department Care Team (Late st Contact Info) Description 04/26/2017 Scanned Document Cardiovascular Medicine at [address] [place] [address] System, Provider Not In Social History Tobacco [...] [facility] 240 [facility] Building [address] [place], [place] [phone] Ronald Mills MD 240 [facility] A1 [place] [address] documented as of this encounter [...] documented as of this encounter Care Teams Mexican Food Maker Hand Relationship Specialty Start Date End Date Caitlyn Bowie MD 3400 [facility] Max 1 [place] [address] PCP - General Internal Medicine 05/06/21 Henry Kelly MD Pulmonary Department 175 [facility], [address] [place] [address] Physician Pulmonary Disease 09/06/17 06/22/20 documented as of this encounter
--- OUTSIDE RECORDS SUMMARY | 2025-03-28 11:46 | XMS_ITS | Encounter Summary ---
Author Organization [facility] and [facility] Address 20 [place] [address] Care Team Providers Care Keno Writer / Runner Name Role Phone Caitlyn Bowie MD Primary Care Provider +1- [phone] Encounter Details Date Type Department Care Team (Late st Contact Info) Description 11/26/2019 Scanned Document Cancer Center at [address] [address] External, Provider Social History Tobacco Use Types [...] [facility] 240 [facility] Building [address] [place], [place] [phone] Ronald Mills MD [address] [place] [address] [address] [place] [address] documented as of this encounter [...] documented as of this encounter Care Teams Keno Writer / Runner Relationship Specialty Start Date End Date Caitlyn Bowie MD 3400 [facility] 1 [place] [address] PCP - General Internal Medicine 05/06/21 Henry Kelly MD Pulmonary Department 175 [facility], [address] [place] [address] Physician Pulmonary Disease 09/06/17 06/22/20 documented as of this encounter
--- OUTSIDE RECORDS SUMMARY | 2025-03-28 11:46 | XMS_ITS | Encounter Summary ---
Author Organization [facility] and [facility] Address 20 [place] [address] Care Team Providers Care News Assistant Name Role Phone Caitlyn Bowie MD Primary Care Provider +1- [phone] Encounter Details Date Type Department Care Team (Latest Contact Info) Description 04/15/2013 Transcribed Orders [facility] 800 [place] [address] Tian Atwood MD [address] [facility] 102 [place] [address] Unspecified hypothyroidism (Primary Dx) Social [...] Telemedicine [facility] at [facility] 240 [facility] [address] [place] [address] Ronald Mills MD 240 [facility] A1 [place] [address] documented as of this encounter Results * Copper, serum total (YH) (04/15/2013 4:31 PM EDT) Copper, Serum Total SEE BELOW [facility] Comment: Test Result Flag Unit RefValue Copper, S 1.35 mcg/mL 0.75-1.45 04/15/2013 4:31 PM EDT us Tian Atwood MD LAB BLOOD ORDERABLES Final R esult [facility] [address] [place] [address] documented in this encounter Visit Diagnoses Diagnosis Unspecified hypothyroidism- Primary documented in this encounter Additional Health Concerns Infection Onset Date Last Indicated Resolved Time COVID-19 03/05/2022 03/05/2022 03/15/2022 7:18 PM EDT documented as of this encounter Care Teams News Assistant Relationship Specialty Start Date End Date Caitlyn Bowie MD 3400 [facility] 1 [place] [address] PCP - General Internal Medicine 05/06/21 Henry Kelly MD Pulmonary Department 175 [facility], [address] [place] [address] Physician Pulmonary Disease 09/06/17 06/22/20 documented as of this encounter
--- OUTSIDE RECORDS SUMMARY | 2025-03-28 11:46 | XMS_ITS | Encounter Summary ---
Author Organization [facility] and [facility] Address [address] [place] [address] Care Team Providers Care Noise Tester Name Role Phone Caitlyn Bowie MD Primary Care Provider +1- [phone] Encounter Details Date Type Department Care Team (Late st Contact Info) Description 12/03/2019 Scanned Document [facility] Health Information Management [address] [place] [address] External, Provider Social History Tobacco Use Types [...] [facility] Building [address] [place] [address] Ronald Mills MD [address] [place] [address] [address]1 [place] [address] documented as of this encounter Visit Diagnoses Not on filedocumented in this encounter Additional Health Concerns Infection Onset Date Last Indicated Resolved Time COVID-19 03/05/2022 03/05/2022 03/15/2022 7:18 PM EDT Assessment Noted Time PHQ-9 Depression Total Score: 2 11/07/19 19 2:06 PM EDT documented as of this encounter Care Teams Noise Tester Relationship Specialty Start Date End Date Caitlyn Bowie MD [address] [facility] 1 [place] [address] PCP - General Internal Medicine 05/06/21 Henry Kelly MD Pulmonary Department 175 [facility], [address] [place] [address] Physician Pulmonary Disease 09/06/17 06/22/20 documented as of this encounter
--- OUTSIDE RECORDS SUMMARY | 2025-03-28 11:46 | XMS_ITS | Encounter Summary ---
Author Organization [facility] Address [address] [place] [address] Phone Care Team Providers Care Flooring Grader Name Role Phone Caitlyn Bowie MD Primary Care Provider +1- [phone] Encounter Details Date Type Department Care Team (Late Contact Info) Description 12/10/2024 Documentation Only [facility] [address] [place] [address] Marina Abdi [address] [place] [address] Social History Tobacco Use Types [...] Visit [facility] [address] [place] [address] Rubén Ashraf MD [address] [place] [address] [place] [address] documented as of this encounter Visit Diagnoses Not on filedocumented in this encounter Care Teams Flooring Grader Relationship Specialty Start Date End Date Caitlyn Bowie MD 3400 [place], [place] PCP - General Internal Medicine 09/24/24 documented as of this encounter
--- OUTSIDE RECORDS SUMMARY | 2025-03-28 11:46 | XMS_ITS | Encounter Summary ---
Author Organization [facility] Address [address] [place] [address] Care Team Providers Care Polymer Tester Name Role Phone Victorino Martin MD Primary Care Provider UnavailSharon Kimbrough Primary Care Provider Unava ilable Brennan Burnett MD Primary Care Provider Unavailab Hayden Montes MD Unavailable [phone] Pallavi Flood NP Unavailable +1- [phone] Caitlyn Bowie MD Primary Care Provider Unava shenaable Reason for Visit * Reason Onset Date Comments hospital follow up 07/30/2018 Encounter Details Date Type Department Care Team Description 07/30/2018 Telephone Pulmonology - [address] [place] [address] Henry Kelly MD hospital follow [...] 1:10 PM EST Patient was admitted into [facility] with a d/c of Monday. The patient was admitted for Pnemonia and she has a blood clot in the left arm vein which is very painful. She would like to be seen today, is there any way you can fit her in today. Please call the patient at [phone]. documented in this encounter Plan of Treatment Not on file documented as of this encounter Visit Diagnoses Not on filedocumented in this encounter Care Teams Polymer Tester Relationship Specialty Start Date End Date Victorino Martin MD PCP - General Internal Medicine 12/21/17 08/01/18 Sharon Vides PCP - General Internal Medicine 08/02/18 05/26/20 Brennan Burnett MD PCP - General Internal Medicine 05/27/20 12/07/21 Caitlyn Bowie MD [address] [place] [address] PCP - General Internal Medicine 12/08/21 Hayden Shah MD [address] [place] [phone] Specialist Cardiovascular Disease 09/01/20 Pallavi Flood NP [address] [place] [address] Cardiology 09/01/20 documented as of this encounter
--- OUTSIDE RECORDS SUMMARY | 2025-03-28 11:46 | XMS_ITS | Encounter Summary ---
Author Organization [facility] and [facility] Address [address] [place] [address] Care Team Providers Care Glass Cutter Name Role Phone Caitlyn Bowie MD Primary Care Provider +1- [phone] Encounter Details Date Type Department Care Team (Late Contact Info) Description 09/09/2020 Scanned Document [facility] Health Information Management [address] [place] [address] External, Provider Social History Tobacco Use Types [...] at [facility] 240 [facility] Building [address] [place], [place] [phone] Ronald Mills MD [address] [place] [address] [address]1 [place] [address] documented as of this encounter [...] as of this encounter Care Teams Glass Cutter Relationship Specialty Start Date End Date Caitlyn Bowie MD [address] [address] PCP - General Internal Medicine 05/06/21 documented as of this encounter
--- OUTSIDE RECORDS SUMMARY | 2025-03-28 11:46 | XMS_ITS | Encounter Summary ---
Author Organization [facility] and [facility] Address [address] [place] [address] Care Team Providers Care Fisher Diver Net Name Role Phone Caitlyn Bowie MD Primary Care Provider +1- [phone] Encounter Details Date Type Department Care Team (Late st Contact Info) Description 06/21/2012 Abstract Head & Neck Cancers Program at [address] [address] Mikel Lloyd MD [address] [place] [address] (Fax) Social History Tobacco Use Types Packs/Day [...] [facility] 240 [facility] Building [address] [place] [address] Ronald Mills MD 240 [facility] Max [address]1 [place] [address] documented as of this encounter Visit Diagnoses Not on filedocumented in this encounter Additional Health Concerns Infection Onset Date Last Indicated Resolved Time COVID-19 03/05/2022 03/05/2022 03/15/2022 7:18 PM EDT documented as of this encounter Care Teams Fisher Diver Net Relationship Specialty Start Date End Date Caitlyn Bowie MD 3400 [facility] 1 [place] [address] PCP - General Internal Medicine 05/06/21 Henry Kelly MD Pulmonary Department [address] [place] [address], [address] [place] [address] Physician Pulmonary Disease 09/06/17 06/22/20 documented as of this encounter
--- OUTSIDE RECORDS SUMMARY | 2025-03-28 11:46 | XMS_ITS | Encounter Summary ---
Author Organization [facility] Address [address] [place] [address] Phone Care Team Providers Care Sales Service Route Manager Name Role Phone Caitlyn Bowie MD Primary Care Provider +1- [phone] Encounter Details Date Type Department Care Team (Late Contact Info) Description 12/10/2024 Documentation Only [facility] [address] [place] [address] Marina Abdi [address] [place] [address] Social History Tobacco Use Types [...] Visit [facility] [address] [place] [address] Rubén Ashraf MD [address] [place] [address] [place] [address] documented as of this encounter Visit Diagnoses Not on filedocumented in this encounter Care Teams Sales Service Route Manager Relationship Specialty Start Date End Date Caitlyn Bowie MD 3400 [place], [place] PCP - General Internal Medicine 09/24/24 documented as of this encounter
--- OUTSIDE RECORDS SUMMARY | 2025-03-28 11:46 | XMS_ITS | Encounter Summary ---
Author Organization [facility] Address [address] [place] [address] Phone Care Team Providers Care Clamshell Operator Name Role Phone Caitlyn Bowie MD Primary Care Provider +1- [phone] Encounter Details Date Type Department Care Team (Late Contact Info) Description 12/10/2024 Documentation Only [facility] [address] [place] [address] Marina Abdi [address] [place] [address] Social History Tobacco Use Types [...] Visit [facility] [address] [place] [address] Rubén Ashraf MD [address] [place] [address] [place] [address] documented as of this encounter Visit Diagnoses Not on filedocumented in this encounter Care Teams Clamshell Operator Relationship Specialty Start Date End Date Caitlyn Bowie MD 3400 [place], [place] PCP - General Internal Medicine 09/24/24 documented as of this encounter
--- OUTSIDE RECORDS SUMMARY | 2025-03-28 11:46 | XMS_ITS | Encounter Summary ---
Author Organization [facility] and [facility] Address [address] [place] [address] Care Team Providers Care Analytical Statistician Name Role Phone Caitlyn Boiwe MD Primary Care Provider +1- [phone] Encounter Details Date Type Department Care Team (Late st Contact Info) Description 06/27/2019 Scanned Document Onco-Oncology Program at [address] [place] [address] Norma Renee MD [address] [place] [address] 2 [place] [address] Social History Tobacco Use Types [...] PM EDT Telemedicine Cancer Center at [address] [place], [place] [phone] Ronald Mills MD 240 [facility] [address]1 [place] [address] documented as of this encounter Visit Diagnoses Not on filedocumented in this encounter Additional Health Concerns Infection Onset Date Last Indicated Resolved Time COVID-19 03/05/2022 03/05/2022 03/15/2022 7:18 PM EDT Assessment Noted Time PHQ-9 Depression Total Score: 2 11/07/19 19 2:06 PM EDT documented as of this encounter Care Teams Analytical Statistician Relationship Specialty Start Date End Date Caitlyn Bowie MD 3400 [facility] 1 [place] [address] PCP - General Internal Medicine 05/06/21 Henry Kelly MD Pulmonary Department 175 [facility], [address] [place] [address] Physician Pulmonary Disease 09/06/17 06/22/20 documented as of this encounter
--- OUTSIDE RECORDS SUMMARY | 2025-03-28 11:46 | XMS_ITS | Encounter Summary ---
Author Organization [facility] Address [address] [place] [address] Care Team Providers Care Auto Clutch Specialist Name Role Phone Victorino Martin MD Primary Care Provider UnavailSharon Kimbrough Primary Care Provider Unava ilable Brennan Burnett MD Primary Care Provider Unavailab Hayden Montes MD Unavailable [phone] Pallavi Flood NP Unavailable [phone]- [phone] Caitlyn Bowie MD Primary Care Provider Unava chhaya Reason for Visit * Reason Comments E-prescribe Rx Request Encounter Details Date Type Department Care Team Description 07/01/2018 Refill Pulmonology [address] [place] [address] Henry Kelly MD E-prescribe Rx [...] / Plan: [place] / Product Type: MEDICARE [id number] documented in this encounter Plan of Treatment Not on file documented as of this encounter Visit Diagnoses Not on filedocumented in this encounter Care Teams Auto Clutch Specialist Relationship Specialty Start Date End Date Victorino Martin MD PCP - General Internal Medicine 12/21/17 08/01/18 Sharon Vides PCP - General Internal Medicine 08/02/18 05/26/20 Brennan Burnett MD PCP - General Internal Medicine 05/27/20 12/07/21 [address] [place] [address] PCP - General Internal Medicine 12/08/21 Hayden Shah MD [address] [place] [address] Specialist Cardiovascular Disease 09/01/20 [place], Pallavi Day, GEOLOGICAL ENGINEERING TEACHER [address] [place] [address] Cardiology 09/01/20 documented as of this encounter
--- OUTSIDE RECORDS SUMMARY | 2025-03-28 11:46 | XMS_ITS | Encounter Summary ---
Author Organization [facility] and [facility] Address [address] [place] [address] Care Team Providers Care Lamp Cleaner Street Light Name Role Phone Caitlyn Bowie MD Primary Care Provider +1- [phone] Encounter Details Date Type Department Care Team (Late st Contact Info) Description 04/26/2017 Scanned Document Cardiovascular Medicine at [address] [place] [address] Norma Renee MD [address] [place] [phone] Social History Tobacco Use Types Packs/Day Years [...] [facility] 240 [facility] Building [address] [place], [place] [phone] Ronald Mills MD [address] [place] [address] [address] [place] [address] documented as of this encounter Visit Diagnoses Not on filedocumented in this encounter Additional Health Concerns Infection Onset Date Last Indicated Resolved Time COVID-19 03/05/2022 03/05/2022 03/15/2022 7:18 PM EDT documented as of this encounter Care Teams Lamp Cleaner Street Light Relationship Specialty Start Date End Date Caitlyn Bowie MD 3400 [facility] 1 [place] [address] PCP - General Internal Medicine 05/06/21 Henry Kelly MD Pulmonary Department 175 [facility], [address] [place] [address] Physician Pulmonary Disease 09/06/17 06/22/20 documented as of this encounter
--- OUTSIDE RECORDS SUMMARY | 2025-03-28 11:46 | XMS_ITS | Encounter Summary ---
Author Organization [facility] Address [address] [place] [address] Phone Care Team Providers Care Tender Coordinator Name Role Phone Caitlyn Bowie MD Primary Care Provider +1- [phone] Encounter Details Date Type Department Care Team (Late Contact Info) Description 12/10/2024 Documentation Only [facility] [address] [place] [address] Marina Abdi [address] [place] [address] Social History Tobacco Use Types [...] [facility] [address] [place] [address] Rubén Ashraf MD [address] [place] [address] [place] [address] documented as of this encounter Visit Diagnoses Not on filedocumented in this encounter Care Teams Tender Coordinator Relationship Specialty Start Date End Date Caitlyn Bowie MD [address]00 [place], [place] PCP - General Internal Medicine 09/24/24 documented as of this encounter
--- OUTSIDE RECORDS SUMMARY | 2025-03-28 11:46 | XMS_ITS | Encounter Summary ---
Author Organization [facility] Address [address] [place] [address] Care Team Providers Care Proposal Editor Name Role Phone Caitlyn Bowie MD Primary Care Provider +1- [phone] Encounter Details Date Type Department Care Team (Late st Contact Info) Description 08/29/2019 Scanned Document Cancer Center at [address] [address] External, Provider Social History Tobacco Use Types [...] [facility] 240 [facility] Building [address] [place], [place] [phone] Ronald Mills MD [address] [place] [address] [address] [place] [address] documented as of this encounter [...] documented as of this encounter Care Teams Proposal Editor Relationship Specialty Start Date End Date Caitlyn Bowie MD 3400 [facility] 1 [place] [address] PCP - General Internal Medicine 05/06/21 Henry Kelly MD Pulmonary Department 175 [facility], [address] [place] [address] Physician Pulmonary Disease 09/06/17 06/22/20 documented as of this encounter
--- OUTSIDE RECORDS SUMMARY | 2025-03-28 11:46 | XMS_ITS | Encounter Summary ---
Author Organization [facility] Address [address] [place] [address] Care Team Providers Care Food Technician Name Role Phone Caitlyn Bowie MD Primary Care Provider +1- [phone] Encounter Details Date Type Department Care Team (Late st Contact Info) Description 12/16/2016 Scanned Document [facility] Health Information Management [address] [place] [address] External, Provider Social History Tobacco Use Types [...] [facility] 240 [facility] Building [address] [place], [place] [phone] Ronald Mills MD 240 [facility] Max [address] [place] [address] documented as of [...] as of this encounter Care Teams Food Technician Relationship Specialty Start Date End Date Caitlyn Bowie MD 3400 [facility] 1 [place] [address] PCP - General Internal Medicine 05/06/21 Henry Kelly MD Pulmonary Department 175 [facility], [address] [place] [address] Physician Pulmonary Disease 09/06/17 06/22/20 documented as of this encounter
--- OUTSIDE RECORDS SUMMARY | 2025-03-28 11:46 | XMS_ITS | Encounter Summary ---
Author Organization [facility] and [facility] Address [address] [place] [address] Care Team Providers Care Tongue Trimmer Name Role Phone Caitlyn Bowie MD Primary Care Provider +1- [phone] Encounter Details Date Type Department Care Team (Late st Contact Info) Description 07/26/2012 Abstract REPLACED BY [facility] Health Information Management [address] [place] [address] [place], Primary Care [address] [place] [address] Social History Tobacco Use Types Packs/Day Years [...] PM EDT Telemedicine Cancer Center at [address] [place], [place] [address] Ronald Mills MD [address] [place] [address] documented as of this encounter Visit Diagnoses Not on filedocumented in this encounter Additional Health Concerns Infection Onset Date Last Indicated Resolved Time COVID-19 03/05/2022 03/05/2022 03/15/2022 7:18 PM EDT documented as of this encounter Care Teams Tongue Trimmer Relationship Specialty Start Date End Date Caitlyn Bowie MD 3400 [facility] 1 [place] [address] PCP - General Internal Medicine 05/06/21 Henry Kelly MD Pulmonary Department 175 [facility], [address] [place] [address] Physician Pulmonary Disease 09/06/17 06/22/20 documented as of this encounter
--- OUTSIDE RECORDS SUMMARY | 2025-03-28 11:46 | XMS_ITS | Encounter Summary ---
Author Organization [facility] and [facility] Address 20 [place] [address] Care Team Providers Care Acute Care Physician Name Role Phone Caitlyn Bowie MD Primary Care Provider +1- [phone] Encounter Details Date Type Department Care Team (Late st Contact Info) Description 12/16/2016 Scanned Document [facility] Health Information Management [address] [place] [address] External, Provider Social History Tobacco Use Types [...] Cancer Center at [facility] 240 [facility] Building [address] [place], [place] [id number] Ronald Mills MD 240 [facility] [address] [place] [address] documented as of this encounter [...] documented as of this encounter Care Teams Acute Care Physician Relationship Specialty Start Date End Date Caitlyn Bowie MD 3400 [facility] 1 [place] [address] PCP - General Internal Medicine 05/06/21 Henry Kelly MD Pulmonary Department 175 [facility], [address] [place] [address] Physician Pulmonary Disease 09/06/17 06/22/20 documented as of this encounter
--- OUTSIDE RECORDS SUMMARY | 2025-03-28 11:46 | XMS_ITS | Clinical Summary ---
Author Organization [facility] Address [address] [place] [address] Care Team Providers Care Managing Jeweler Name Role Phone Brennan Burnett MD Primary Care Provider [phone] Allergies Active Allergy Reactions Criticality Noted Date [...] age to complete this topic Care Teams Managing Jeweler Relationship Specialty Start Date End Date Brennan Burnett MD [address] [place] [address] PCP - General Internal Medicine 07/06/20
--- OUTSIDE RECORDS SUMMARY | 2025-03-28 11:46 | XMS_ITS | Encounter Summary ---
Author Organization [facility] and [facility] Address [address] [place] [address] Care Team Providers Care Steamtable Worker Name Role Phone Caitlyn Bowie MD Primary Care Provider +1- [phone] Encounter Details Date Type Department Care Team (Late st Contact Info) Description 01/22/2020 Scanned Document [facility] 800 [place] [address] Kerwin Menjivar MD [address] [facility] 3 [place] [address] Social History Tobacco Use Types [...] PM EDT Telemedicine Cancer Center at [address] [place] [address] Ronald Mills MD 240 [facility] [address] [place] [address] documented as of this encounter Visit Diagnoses Not on filedocumented in this encounter Additional Health Concerns Infection Onset Date Last Indicated Resolved Time COVID-19 03/05/2022 03/05/2022 03/15/2022 7:18 PM EDT Assessment Noted Time PHQ-9 Depression Total Score: 2 11/07/19 19 2:06 PM EDT documented as of this encounter Care Teams Steamtable Worker Relationship Specialty Start Date End Date Caitlyn Bowie MD [address] [address] PCP - General Internal Medicine 05/06/21 Henry Kelly MD Pulmonary Department [address] [place] [address], [address] [place] [address] Physician Pulmonary Disease 09/06/17 06/22/20 documented as of this encounter
--- OUTSIDE RECORDS SUMMARY | 2025-03-28 11:46 | XMS_ITS | Encounter Summary ---
Author Organization [facility] and [facility] Address [address] [place] [address] Care Team Providers Care Country Sales Manager Name Role Phone Caitlyn Bowie MD Primary Care Provider +1- [phone] Encounter Details Date Type Department Care Team (Late st Contact Info) Description 07/01/2019 Scanned Document Onco-Oncology Program at [address] [place] [address] Norma Renee MD [address] [place] [address] 2 [place] [phone] Social History Tobacco Use Types Packs/Day Years [...] PM EDT Telemedicine Cancer Center at [address] [place], [place] [phone] Ronald Mills MD 240 [facility] A1 [place] [address] documented as of this encounter Visit Diagnoses Not on filedocumented in this encounter Additional Health Concerns Infection Onset Date Last Indicated Resolved Time COVID-19 03/05/2022 03/05/2022 03/15/2022 7:18 PM EDT Assessment Noted Time PHQ-9 Depression Total Score: 2 11/07/19 19 2:06 PM EDT documented as of this encounter Care Teams Country Sales Manager Relationship Specialty Start Date End Date Caitlyn Bowie MD 3400 [facility] 1 [place] [address] PCP - General Internal Medicine 05/06/21 Henry Kelly MD Pulmonary Department 175 [facility], [address] [place] [address] Physician Pulmonary Disease 09/06/17 06/22/20 documented as of this encounter
--- OUTSIDE RECORDS SUMMARY | 2025-03-28 11:46 | XMS_ITS | Encounter Summary ---
Author Organization [facility] Address [address] [place] [address] Care Team Providers Care Testing Consultant Name Role Phone Victorino Martin MD Primary Care Provider Sharon Odonnell Primary Care Provider Brennan Castro MD Primary Care Provider UnavailHayden Fernandez MD Unavailable [phone] Pallavi Flood NP Unavailable [phone]- [phone] Caitlyn Bowie MD Primary Care Provider Johnathon shaver Encounter Details Date Type Department Care Team Description 07/23/2018 [facility] Internal Medicine [address], [address] [place] [address] Henry Kelly MD Social History Tobacco Use [...] on filedocumented in this encounter Care Teams Testing Consultant Relationship Specialty Start Date End Date Victorino Martin MD PCP - General Internal Medicine 12/21/17 08/01/18 Sharon Vides PCP - General Internal Medicine 08/02/18 05/26/20 Brennan Burnett MD PCP - General Internal Medicine 05/27/20 12/07/21 Caitlyn Bowie MD [address] [place] [address] PCP - General Internal Medicine 12/08/21 Hayden Shah MD [address] [place] [address] Specialist Cardiovascular Disease 09/01/20 Pallavi Flood NP [address] [place] [address] Cardiology 09/01/20 documented as of this encounter
--- OUTSIDE RECORDS SUMMARY | 2025-03-28 11:46 | XMS_ITS | Encounter Summary ---
Author Organization [facility] and [facility] Address [address] [place] [address] Care Team Providers Care Scheduling Clerk Name Role Phone Caitlyn Bowie MD Primary Care Provider +1- [phone] Encounter Details Date Type Department Care Team (Late st Contact Info) Description 07/12/2019 Scanned Document Onco-Oncology Program at [address] [place] [address] Norma Renee MD [address] [place] [address] 2 [place] [address] Social History Tobacco Use Types [...] PM EDT Telemedicine Cancer Center at [address] [place], [place] [phone] Ronald Mills MD 240 [facility] A1 [place] [address] documented as of this encounter Visit Diagnoses Not on filedocumented in this encounter Additional Health Concerns Infection Onset Date Last Indicated Resolved Time COVID-19 03/05/2022 03/05/2022 03/15/2022 7:18 PM EDT Assessment Noted Time PHQ-9 Depression Total Score: 2 11/07/19 19 2:06 PM EDT documented as of this encounter Care Teams Scheduling Clerk Relationship Specialty Start Date End Date Caitlyn Bowie MD 3400 [facility] 1 [place] [address] PCP - General Internal Medicine 05/06/21 Henry Kelly MD Pulmonary Department 175 [facility], [address] [place] [address] Physician Pulmonary Disease 09/06/17 06/22/20 documented as of this encounter
--- OUTSIDE RECORDS SUMMARY | 2025-03-28 11:46 | XMS_ITS | Encounter Summary ---
Author Organization [facility] and [facility] Address [address] [place] [address] Care Team Providers Care Summer School Coordinator Name Role Phone Caitlyn Bowie MD Primary Care Provider +1- [phone] Encounter Details Date Type Department Care Team (Late st Contact Info) Description 09/07/2020 Scanned Document Cardiovascular Medicine at [address] [place] [address] Norma Renee MD [address] [place] [phone] Social History Tobacco Use Types Packs/Day Years [...] PM EDT Telemedicine Cancer Center at [address] [place] [address] Ronald Mills MD [address] [place] [address] [address] [place] [address] documented as of this encounter Visit Diagnoses Not on filedocumented in this encounter Additional Health Concerns Infection Onset Date Last Indicated Resolved Time COVID-19 03/05/2022 03/05/2022 03/15/2022 7:18 PM EDT Assessment Noted Time PHQ-9 Depression Total Score: 2 11/07/19 19 2:06 PM EDT documented as of this encounter Care Teams Summer School Coordinator Relationship Specialty Start Date End Date Caitlyn Bowie MD [address] [address] PCP - General Internal Medicine 05/06/21 documented as of this encounter
--- OUTSIDE RECORDS SUMMARY | 2025-03-28 11:46 | XMS_ITS | Encounter Summary ---
Author Organization [facility] Address [address] [place] [address] Phone Care Team Providers Care Measuring Machine Tender Name Role Phone Caitlyn Bowie MD Primary Care Provider +1- [phone] Encounter Details Date Type Department Care Team (Late Contact Info) Description 12/10/2024 Documentation Only [facility] [address] [place] [address] Marina Abdi [address] [place] [address] Social History Tobacco Use [...] Visit [facility] [address] [place] [address] Rubén Ashraf MD [address] [place] [address] [place] [address] documented as of this encounter Visit Diagnoses Not on filedocumented in this encounter Care Teams Measuring Machine Tender Relationship Specialty Start Date End Date Caitlyn Bowie MD [address] [place], [place] PCP - General Internal Medicine 09/24/24 documented as of this encounter
--- OUTSIDE RECORDS SUMMARY | 2025-03-28 11:46 | XMS_ITS | Encounter Summary ---
Author Organization [facility] and [facility] Address [address] [place] [address] Care Team Providers Care Bowling Ball Finisher Name Role Phone Caitlyn Bowie MD Primary Care Provider +1- [phone] Encounter Details Date Type Department Care Team (Late st Contact Info) Description 12/16/2016 Scanned Document [facility] Health Information Management [address] [place] [address] External, Provider Social History Tobacco Use Types [...] [facility] 240 [facility] Building [address] [place], [place] [id number] Ronald Mills MD 240 [facility] A1 [place] [address] documented as of this encounter [...] documented as of this encounter Care Teams Bowling Ball Finisher Relationship Specialty Start Date End Date Caitlyn Bowie MD [facility] 1 [place] [address] PCP - General Internal Medicine 05/06/21 Henry Kelly MD Pulmonary Department 175 [facility], [address] [place] [address] Physician Pulmonary Disease 09/06/17 06/22/20 documented as of this encounter
--- OUTSIDE RECORDS SUMMARY | 2025-03-28 11:46 | XMS_ITS | Encounter Summary ---
Author Organization [facility] Address [address] [place] [address] Care Team Providers Care Mushroom Packer Name Role Phone Cristofer Hope MD Primary Care Provider Victorino Read MD Primary Care Provider UnavailSharon Kimbrough Primary Care Provider Unava ilBrennan Newman MD Primary Care Provider Unavailab Hayden Montes MD Unavailable [phone] Pallavi Flood NP Unavailable [phone]- [phone] Caitlyn Bowie MD Primary Care Provider Unava chhaya Encounter Details Date Type Department Care Team Description 06/12/2017 Transfer Records Medical Records 4 [place] [address] Abstract, Provider Social History Tobacco Use Types [...] on filedocumented in this encounter Care Teams Mushroom Packer Relationship Specialty Start Date End Date Cristofer Hope MD PCP - General Internal Medicine 05/16/17 12/20/17 Victorino Martin MD PCP - General Internal Medicine 12/21/17 08/01/18 Sharon Vides PCP - General Internal Medicine 08/02/18 05/26/20 Brennan Burnett MD PCP - General Internal Medicine 05/27/20 12/07/21 Caitlyn Bowie MD [address] [place] [address] PCP - General Internal Medicine 12/08/21 Hayden Shah MD [address] [place], [place] [phone] Specialist Cardiovascular Disease 09/01/20 Pallavi Flood NP [address] [place], [place] [phone] Cardiology 09/01/20 documented as of this encounter
--- OUTSIDE RECORDS SUMMARY | 2025-03-28 11:46 | XMS_ITS | Encounter Summary ---
Author Organization [facility] Address [address] [place] [address] Phone Care Team Providers Care Foundation Coordinator Name Role Phone Caitlyn Bowie MD Primary Care Provider +1- [phone] Encounter Details Date Type Department Care Team (Late Contact Info) Description 12/10/2024 Documentation Only [facility] [address] [place] [address] Marina Abdi [address] [place] [address] Social History Tobacco Use Types [...] [facility] [address] [place] [address] Rubén Ashraf MD [address] [place] [address] [place] [address] documented as of this encounter Visit Diagnoses Not on filedocumented in this encounter Care Teams Foundation Coordinator Relationship Specialty Start Date End Date Caitlyn Bowie MD [address] [place], [place] PCP - General Internal Medicine 09/24/24 documented as of this encounter
--- OUTSIDE RECORDS SUMMARY | 2025-03-28 11:46 | XMS_ITS | Encounter Summary ---
Author Organization [facility] Address [address] [place] [address] Care Team Providers Care Shear Operator Automatic Name Role Phone Caitlyn Bowie MD Primary Care Provider +1- [phone] Encounter Details Date Type Department Care Team (Late st Contact Info) Description 08/16/2012 Abstract [facility] Health Information Management [address] [place] [address] [place], Primary Care [address] [place] [address] Social History Tobacco Use Types Packs/Day Years [...] PM EDT Telemedicine Cancer Center at [address] [place], [place] [phone] Ronald Mills MD [address] [facility] [address] [place] [address] documented as of this encounter Visit Diagnoses Not on filedocumented in this encounter Additional Health Concerns Infection Onset Date Last Indicated Resolved Time COVID-19 03/05/2022 03/05/2022 03/15/2022 7:18 PM EDT documented as of this encounter Care Teams Shear Operator Automatic Relationship Specialty Start Date End Date Caitlyn Bowie MD 3400 [facility] 1 [place] [address] PCP - General Internal Medicine 05/06/21 Henry Kelly MD Pulmonary Department [address] [place] [address], [address] [place] [address] Physician Pulmonary Disease 09/06/17 06/22/20 documented as of this encounter
--- OUTSIDE RECORDS SUMMARY | 2025-03-28 11:46 | XMS_ITS | Encounter Summary ---
Author Organization [facility] and [facility] Address [address] [place] [address] Care Team Providers Care Field Crop Farmer Name Role Phone Caitlyn Bowie MD Primary Care Provider +1- [phone] Encounter Details Date Type Department Care Team (Late st Contact Info) Description 06/27/2019 Scanned Document Onco-Oncology Program at [address] [place] [address] Norma Renee MD [address] [place] [address] 2 [place] [address] Social History Tobacco Use Types [...] PM EDT Telemedicine Cancer Center at [address] [place], [place] [phone] Ronald Mills MD 240 [facility] A1 [place] [address] documented as of this encounter Visit Diagnoses Not on filedocumented in this encounter Additional Health Concerns Infection Onset Date Last Indicated Resolved Time COVID-19 03/05/2022 03/05/2022 03/15/2022 7:18 PM EDT Assessment Noted Time PHQ-9 Depression Total Score: 2 11/07/19 19 2:06 PM EDT documented as of this encounter Care Teams Field Crop Farmer Relationship Specialty Start Date End Date Caitlyn Bowie MD [address] [facility] 1 [place] [address] PCP - General Internal Medicine 05/06/21 Henry Kelly MD Pulmonary Department 175 [facility], [address] [place] [address] Physician Pulmonary Disease 09/06/17 06/22/20 documented as of this encounter
--- OUTSIDE RECORDS SUMMARY | 2025-03-28 11:46 | XMS_ITS | Encounter Summary ---
Author Organization [facility] Address [address] [place] [address] Care Team Providers Care Toll Relief Operator Name Role Phone Caitlyn Bowie MD Primary Care Provider +1- [phone] Encounter Details Date Type Department Care Team (Late st Contact Info) Description 11/29/2019 Scanned Document [facility] Health Information Management [address] [place] [address] External, Provider Social History Tobacco Use Types [...] at [facility] 240 [facility] Building [address] [place], [place] [phone] Ronald Mills MD [address] [place] [address] [address] [place] [address] documented as of this encounter [...] as of this encounter Care Teams Toll Relief Operator Relationship Specialty Start Date End Date Caitlyn Bowie MD 3400 [facility] 1 [place] [address] PCP - General Internal Medicine 05/06/21 Henry Kelly MD Pulmonary Department 175 [facility], [address] [place] [address] Physician Pulmonary Disease 09/06/17 06/22/20 documented as of this encounter
--- OUTSIDE RECORDS SUMMARY | 2025-03-28 11:46 | XMS_ITS | Encounter Summary ---
Author Organization [facility] Address [address] [place] [address] Phone Care Team Providers Care Associate Agent Insurance Sales Name Role Phone Caitlyn Bowie MD Primary Care Provider +1- [phone] Encounter Details Date Type Department Care Team (Late Contact Info) Description 03/24/2025 Documentation Only [facility] [address] [place] [address] Marina Abdi [address] [place] [address] Social History Tobacco Use Types [...] Visit [facility] [address] [place] [address] Rubén Ashraf MD [address] [place] [address] [place] [address] documented as of this encounter Visit Diagnoses Not on filedocumented in this encounter Care Teams Associate Agent Insurance Sales Relationship Specialty Start Date End Date Caitlyn Bowie MD [address] [place], [place] PCP - General Internal Medicine 09/24/24 documented as of this encounter
--- OUTSIDE RECORDS SUMMARY | 2025-03-28 11:46 | XMS_ITS | Encounter Summary ---
Author Organization [facility] Address [address] [place] [address] Care Team Providers Care Painting Instructor Name Role Phone Caitlyn Bowie MD Primary Care Provider +1- [phone] Encounter Details Date Type Department Care Team (Late st Contact Info) Description 12/16/2016 Scanned Document [facility] Health Information Management [address] [place] [address] External, Provider Social History Tobacco Use Types [...] Telemedicine Cancer Center at [facility] 240 [facility] Building [address] [place], [place] [phone] Ronald Mills MD 240 [facility] Max [address] [place] [address] documented as of this encounter [...] as of this encounter Care Teams Painting Instructor Relationship Specialty Start Date End Date Caitlyn Bowie MD 3400 [facility] 1 [place] [address] PCP - General Internal Medicine 05/06/21 Henry Kelly MD Pulmonary Department 175 [facility], [address] [place] [address] Physician Pulmonary Disease 09/06/17 06/22/20 documented as of this encounter
--- OUTSIDE RECORDS SUMMARY | 2025-03-28 11:46 | XMS_ITS | Encounter Summary ---
Author Organization [facility] Address [address] [place] [address] Care Team Providers Care Launchman Name Role Phone Caitlyn Bowie MD Primary Care Provider +1- [phone] Encounter Details Date Type Department Care Team (Late st Contact Info) Description 01/28/2013 Scanned Document Thoracic Oncology Program at [address] [address] Solo Henry MD [address] [place] [address] Social History Tobacco Use Types Packs/Day [...] Center at [facility] 240 [facility] Building [address] [place], [place] [address] Ronald Mills MD 240 [facility] Max [address]1 [place] [address] documented as of this encounter Visit Diagnoses Not on filedocumented in this encounter Additional Health Concerns Infection Onset Date Last Indicated Resolved Time COVID-19 03/05/2022 03/05/2022 03/15/2022 7:18 PM EDT documented as of this encounter Care Teams Launchman Relationship Specialty Start Date End Date Caitlyn Bowie MD 3400 [facility] Max 1 [place] [address] PCP - General Internal Medicine 05/06/21 Henry Kelly MD Pulmonary Department 175 [facility], [address] [place] [address] Physician Pulmonary Disease 09/06/17 06/22/20 documented as of this encounter
--- OUTSIDE RECORDS SUMMARY | 2025-03-28 11:46 | XMS_ITS | Encounter Summary ---
Author Organization [facility] and [facility] Address [address] [place] [address] Care Team Providers Care Project Planner Name Role Phone Caitlyn Bowie MD Primary Care Provider +1- [phone] Encounter Details Date Type Department Care Team (Late st Contact Info) Description 01/28/2013 Scanned Document Thoracic Oncology Program at [address] [address] Solo Henry MD [address] [place] [phone] Social History Tobacco Use Types Packs/Day [...] at [facility] [address] [facility] [address] [place], [place] [address] Ronald Mills MD [address] [facility] [address] [place] [address] documented as of this encounter Visit Diagnoses Not on filedocumented in this encounter Additional Health Concerns Infection Onset Date Last Indicated Resolved Time COVID-19 03/05/2022 03/05/2022 03/15/2022 7:18 PM EDT documented as of this encounter Care Teams Project Planner Relationship Specialty Start Date End Date Caitlyn Bowie MD [address] [facility] [address] [place] [address] PCP - General Internal Medicine 05/06/21 Henry Kelly MD Pulmonary Department 175 [facility], [address] [place] [address] Physician Pulmonary Disease 09/06/17 06/22/20 documented as of this encounter
--- OUTSIDE RECORDS SUMMARY | 2025-03-28 11:46 | XMS_ITS | Encounter Summary ---
Author Organization [facility] and [facility] Address [address] [place] [address] Care Team Providers Care Hydrographer Name Role Phone Caitlyn Bowie MD Primary Care Provider [phone]- [phone] Encounter Details Date Type Department Care Team (Late st Contact Info) Description 08/29/2019 Scanned Document Cancer Center at [address] [address] External, Provider Social History Tobacco Use Types [...] [facility] Building [address] [place], [place] [id number] Ronald Mills MD [address] [place] [address] [address] [place] [address] documented as of this encounter [...] documented as of this encounter Care Teams Hydrographer Relationship Specialty Start Date End Date Caitlyn Bowie MD 34[address] [facility] 1 [place] [address] PCP - General Internal Medicine 05/06/21 Henry Kelly MD Pulmonary Department 175 [facility], [address] [place] [address] Physician Pulmonary Disease 09/06/17 06/22/20 documented as of this encounter
--- OUTSIDE RECORDS SUMMARY | 2025-03-28 11:46 | XMS_ITS | Encounter Summary ---
Author Organization [facility] and [facility] Address [address] [place] [address] Care Team Providers Care Pants Busheler Name Role Phone Caitlyn Bowie MD Primary Care Provider +1- [phone] Encounter Details Date Type Department Care Team (Late st Contact Info) Description 06/27/2019 Scanned Document Onco-Oncology Program at [address] [place] [address] Norma Renee MD [address] [place] [address] 2 [place] [address] Social History Tobacco Use Types [...] PM EDT Telemedicine Cancer Center at [address] [place], [place] [id number] Ronald Mills MD [address] [facility] [address] [place] [address] documented as of this encounter Visit Diagnoses Not on filedocumented in this encounter Additional Health Concerns Infection Onset Date Last Indicated Resolved Time COVID-19 03/05/2022 03/05/2022 03/15/2022 7:18 PM EDT Assessment Noted Time PHQ-9 Depression Total Score: 2 11/07/19 19 2:06 PM EDT documented as of this encounter Care Teams Pants Busheler Relationship Specialty Start Date End Date Caitlyn Bowie MD 3400 [facility] 1 [place] [address] PCP - General Internal Medicine 05/06/21 Henry Kelly MD Pulmonary Department 175 [facility], [address] [place] [address] Physician Pulmonary Disease 09/06/17 06/22/20 documented as of this encounter
--- OUTSIDE RECORDS SUMMARY | 2025-03-28 11:47 | XMS_ITS | Encounter Summary ---
Author Organization [facility] and [facility] Address [address] [place] [address] Care Team Providers Care Tiger Machine Operator Name Role Phone Caitlyn Bowie MD Primary Care Provider +1- [phone] Encounter Details Date Type Department Care Team (Late st Contact Info) Description 06/07/2017 Scanned Document [facility] Health Information Management [address] [place] [id number] External, Provider Social History Tobacco Use Types [...] [facility] [address] [facility] Building [address] [place], [place] [id number] Ronald Mills MD [address] [place] [address] [address] [place] [address] documented as of this encounter [...] documented as of this encounter Care Teams Tiger Machine Operator Relationship Specialty Start Date End Date Caitlyn Bowie MD [address] [facility] 1 [place] [address] PCP - General Internal Medicine 05/06/21 Henry Kelly MD Pulmonary Department 175 [facility], [address] [place] [address] Physician Pulmonary Disease 09/06/17 06/22/20 documented as of this encounter
--- OUTSIDE RECORDS SUMMARY | 2025-03-28 11:47 | XMS_ITS | Encounter Summary ---
Author Organization [facility] Address [address] [place] [address] Care Team Providers Care Boner Meat Name Role Phone Victorino Martin MD Primary Care Provider UnavailSharon Kimbrough Primary Care Provider Unava ilable Brennan Burnett MD Primary Care Provider Unavailab Hayden Montes MD Unavailable [phone] Pallavi Flood NP Unavailable [phone]- [phone] Caitlyn Bowie MD Primary Care Provider Unava chhaya Reason for Visit * Reason Onset Date Comments Faxed Refill 02/05/2018 Encounter Details Date Type Department Care Team Description 02/05/2018 Telephone Pulmonology - [address] [place] [address] Henry Kelly MD Faxed Refill [...] No Patients current insurance carrier is: Payor: MEDICARE-Cover Lockscreen / Plan: MEDICARE-Cover Lockscreen / Product Type: MEDICARE [id number] documented in this encounter Plan of Treatment Not on file documented as of this encounter Visit Diagnoses Diagnosis Mixed simple and mucopurulent chronic bronchitis (HCC) Other chronic bronchitis documented in this encounter Care Teams Boner Meat Relationship Specialty Start Date End Date Victorino Martin MD PCP - General Internal Medicine 12/21/17 08/01/18 Sharon Vides PCP - General Internal Medicine 08/02/18 05/26/20 Brennan Burnett MD PCP - General Internal Medicine 05/27/20 12/07/21 Caitlyn [address] [place] [address] PCP - General Internal Medicine 12/08/21 Hayden Shah MD [address] [place] [address] Specialist Cardiovascular Disease 09/01/20 Pallavi Flood, ALON [address] [place] [address] Cardiology 09/01/20 documented as of this encounter
--- OUTSIDE RECORDS SUMMARY | 2025-03-28 11:47 | XMS_ITS | Encounter Summary ---
Author Organization [facility] and [facility] Address [address] [place] [phone] Care Team Providers Care Literature Teacher Name Role Phone Caitlyn Bowie MD Primary Care Provider +1- [phone] Encounter Details Date Type Department Care Team (Late st Contact Info) Description 04/02/2021 Scanned Document INTERFACE DEFAULT [address] [place] [address] System, Provider Not In Social History Tobacco [...] [facility] Building [address] [place], [place] [id number] Ronald Mills MD [address] [place] [address] [address] [place] [address] documented as of this encounter [...] documented as of this encounter Care Teams Literature Teacher Relationship Specialty Start Date End Date Caitlyn Bowie MD [address] [address] PCP - General Internal Medicine 05/06/21 documented as of this encounter
--- OUTSIDE RECORDS SUMMARY | 2025-03-28 11:47 | XMS_ITS | Encounter Summary ---
Author Organization [facility] and [facility] Address [address] [place] [address] Care Team Providers Care Can Sterilizer Name Role Phone Caitlyn Bowie MD Primary Care Provider +1- [phone] Encounter Details Date Type Department Care Team (Late st Contact Info) Description 02/21/2017 Scanned Document [facility] Health Information Management [address] [place] [phone] External, Provider Social History Tobacco Use Types [...] Telemedicine Cancer Center at [facility] [address] [facility] Building [address] [place], [place] [id number] Ronald Mills MD [address] [facility] [address] [place] [address] documented as of this encounter [...] as of this encounter Care Teams Can Sterilizer Relationship Specialty Start Date End Date Caitlyn Bowie MD 3400 [facility] [address] 1 [place] [address] PCP - General Internal Medicine 05/06/21 Henry Kelly MD Pulmonary Department 175 [facility], [address] [place] [address] Physician Pulmonary Disease 09/06/17 06/22/20 documented as of this encounter
--- OUTSIDE RECORDS SUMMARY | 2025-03-28 11:47 | XMS_ITS | Encounter Summary ---
Author Organization [facility] Address [address] [place] [address] Care Team Providers Care Leadlighter Name Role Phone Cristofer Hope MD Primary Care Provider Victorino Read MD Primary Care Provider UnavailSharon Kimbrough Primary Care Provider Unava ilBrennan Newman MD Primary Care Provider Unavailab Hayden Montes MD Unavailable [phone] Pallavi Flood NP Unavailable [phone] Caitlyn Bowie MD Primary Care Provider Unava chhaya Encounter Details Date Type Department Care Team Description 11/15/2017 Transfer Records Medical Records [address] [place] [id number] Abstract, Provider Social History Tobacco Use Types [...] on filedocumented in this encounter Care Teams Leadlighter Relationship Specialty Start Date End Date Cristofer Hope MD PCP - General Internal Medicine 05/16/17 12/20/17 Victorino Martin MD PCP - General Internal Medicine 12/21/17 08/01/18 Sharon Vides PCP - General Internal Medicine 08/02/18 05/26/20 Brennan Burnett MD PCP - General Internal Medicine 05/27/20 12/07/21 Caitlyn Bowie MD [address] [place] [address] PCP - General Internal Medicine 12/08/21 Hayden Shah MD [address] [place] [address] Specialist Cardiovascular Disease 09/01/20 Pallavi Flood NP [address] [place] [address] Cardiology 09/01/20 documented as of this encounter
--- OUTSIDE RECORDS SUMMARY | 2025-03-28 11:47 | XMS_ITS | Clinical Summary ---
Author Organization 175 [facility] Address [address] [place] [address] Phone Care Team Providers Care Business Development Professional Name Role Phone Caitlyn Bowie MD Primary Care Provider [phone] Allergies Active Allergy Reactions Criticality Noted Date [...] 20 mg as needed by her previous pumper brewery which she has taken sporadically. I have asked her to take this daily to see if this improves her symptoms and she has a follow-up appointment with Dr. Shah on September 16 which she will keep. We also had a long conversation regarding the fact that she is seeing 3 different pumper brewery for the same problems. We informed her [...] continues to see Dr. Avalos or her pumper brewery at [facility]. She [...] right lower leg 03/06/2019 Antiphospholipid antibody syndrome ([facility] V24) 12/24/2018 Adrenal insufficiency ([facility] V24) 08/23/2018 Allergic rhinitis 08/23/2018 Hyperparathyroidism ([facility] V24) 08/23/2018 MRSA infection 08/23/2018 Overview (05/16/2024): 06/2009, s/p thoracotomy infection Osteoarthritis 08/23/2018 Radiation-induced pulmonary fibrosis ([facility] V2 4) 11/13/2017 Bronchiectasis ([facility] V24, [facility] V28) 2017 Leg edema 08/08/2017 Restrictive lung disease 08/08/2017 Chronic obstructive pulmonar y disease ([facility] V24, [facility] V28) 04/13/2017 Fibromyalgia 04/13/2017 Congestive heart failure ([facility] V24, [facility] V 28) 04/04/2017 Heterozygous factor V Leiden mutation ([facility] V 24) 04/04/2017 Obstructive sleep apnea syndrome 04/04/2017 Overview (05/16/2024): CPAP Pleural effusion 04/04/2017 Pulmonary hypertension ([facility] V24, [facility] V28 ) 04/04/2017 Multiple pulmonary nodules [...] Description 03/20/2025 11:40 AM EDT Office Visit [facility] 175 [facility] [address] [place] [address] Ayanna Jaffe MD Optic neuritis (Primary Dx); White matter lesion of central nervous system; Blurry vision 02/24/2025 Telephone Gastroenterology - 299 [facility] [address] [facility] [address] [place] [phone] Tim Gomes MD 02/23/2025 11:40 AM EDT - 02/23/2025 4:22 PM EDT Emergency [facility] Emergency [address] [place] [phone] Celia Snider DO Diverticulitis (Primary Dx) Discharge Disposition: Home or Self Care 02/21/2025 4:30 PM EDT Office Visit [facility] [address] [phone] Shirley Chaidez PA Optic neuritis (Primary Dx) 01/19/2025 7:49 PM EDT - 01/19/2025 9:08 PM EDT Emergency [facility] Emergency [address] [place] [phone] Discharge Disposition: Home or Self Care from [...] Akathisia 04/15/2013 DX:Akathisia Anxiety 12/07/2016 DX:Anxiety Bronchiectasis ([facility] V24, [facility] V28) 08/08/2017 DX:Bronchiectasis (HCC) Cataract 08/26/2014 DX:Cataract Chronic obstructive pulmonar y disease ([facility] V24, [facility] V28) 04/13/2017 DX:Chronic obstructive pulm onary disease (HCC) 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 DX:Complica cole migraine Congestive heart failure ([facility] V24, [facility] V28) 04/04/2017 DX:Congestive heart failure (HCC) History of deep vein thrombosis 04/04/2017 DX:History of deep vein thrombosis Diverticulitis of sigmoid colon 12/15/2016 DX:Diverticulitis of sigmoid colon Elevated liver enzymes 09/23/2015 DX:Elevat ed liver enzymes Fibromyalgia 04/13/2017 DX:Fibromyalgia Gastroesophageal reflux disease 11/17/2016 DX:Gastroesophageal reflux disease Glaucoma suspect 08/26/2014 DX:Glaucoma dori pect Heterozygous factor V Leiden mutation ([facility] V24) 04/04/2017 DX:Heterozygous factor V [...] syndrome 02/18/2013 DX:Postc oncussion syndrome Pulmonary hypertension ([facility] V24, [facility] V28) 04/04/2017 DX:Pulmonary hypertension (H CC) Restrictive lung disease 08/08/2017 DX:Rest rictive lung disease 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 DX:Zinc deficien cy Obstructive sleep apnea syndrome 04/04/2017 DX:Obstructive sleep apnea syndrome; COMMENT: CPAP Radiation-induced pulmonary fibrosis ([facility] V24) 11/13/2017 DX:Radiation-induced pulmona ry fibrosis (HCC) Adrenal insufficiency ([facility] V24) 08/23/2018 DX:Adrenal insufficiency (HCC) Hyperparathyroidism ([facility] V24) 08/23/2018 DX:Hyperparathyroidism [...] Mx LLL resection, Chemo, RT, Cisplatin, Vinorelbine [phone] Antiphospholipid antibody sy ndrome ([facility] V24) 12/24/2018 DX:Antiphospholipid antibody syndrome (HCC) 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 Hyperparathyroidism ([facility] V24) DX:Hyperparathyroidism (HCC) Adrenal insufficiency ([facility] V24) DX:Adrenal insufficiency (HCC) Family History Medical [...] Info) Description 04/14/2025 10:00 AM EDT Evaluation [facility] 175 [facility] [address] [place] [phone] Bruno Moreno, PT [address] [place] [address] 05/29/2025 3:00 PM EST Office Visit [facility] 175 [facility] [address] [place] [phone] Ayanna Jaffe MD [address] [place] [address] Health Maintenance Due Date Last Done Comments [...] central nervous system Blurry vision NEUROMYELITIS OPTICA, [id number] Routine 03/20/2025 12:31 PM EDT Optic neuritis White matter lesion of central nervous system Blurry vision MYELIN OLIGODENDROCYTE GLYCOPROTEIN ANTIBODY WITH REFLEX TO TITER Routine 03/20/2025 12:31 PM EDT Optic neuritis [...] PM EDT MARTINEZ URINE CULTURE TUBE STAT 02/24/20 2:04 PM EDT URINALYSIS WITH REFLEX MICROSCOPIC [...] EDT from Last 3 Months Results * Myelin oligodendrocyte glycoprotein antibody with reflex to titer (03/20/2025 12:31 PM EDT) Pathologist [facility] MOG Antibody, Cell-based IFA Negative Negative 03/25/2025 1:05 AM EDT [facility] Blood Venous blood specimen / Unknown Venipuncture / Unknown 03/20/2025 12:31 PM EDT 03/20/2025 12:31 PM EDT [facility] - 03/25/2025 1:05 AM EDT Test(s) [id number] Antibody, Cell-based IFA was developed and its performance characteristics determined by [facility]. It has not been cleared or approved by the Food and Drug Administration. Performed at: 01 - [address] [id number] Credit Underwriter: Melissa Wetzel MD, Phone: [phone] Ayanna Jaffe MD LAB BLOOD ORDERABLES Fin al Result [facility] * Neuromyelitis optica, [id number] (03/20/2025 12:31 PM EDT) Pathologist [facility] NMO IgG Autoantibodies <1.5 0.0 - 3.0 U/mL 03/24/2025 3:05 PM EDT [facility] Comment: Negative: 0.0 - 3.0 Positive: >3.0 Blood Venous blood specimen / Unknown Venipuncture / Unknown 03/20/2025 12:31 PM EDT 03/20/2025 12:31 PM EDT Narrative [facility] - 03/24/2025 3:05 PM EDT Performed at: 01 - [address] [id number] Credit Underwriter: Melissa Wetzel MD, Phone: [phone] Ayanna Jaffe MD LAB BLOOD ORDERABLES Fin al Result [facility] * (ABNORMAL) CBC auto differential (03/20/2025 12:31 PM EDT) Only the most recent of2 resultswithin the time period is included. WBC 11.0(H) 4.8 - 10.8 K/mcL LAB HEMETOLOGY METHOD 03/20/2025 2:23 PM EDT [facility] RBC 3.50(L) 3.80 - 4.80 M/mcL LAB HEMETOLOGY METHOD 03/20/2025 2:23 PM EDT [facility] Hemoglobin 11.5 11.5 - 16.0 g/dL LAB HEMETOLOGY METHOD 03/20/2025 2:23 PM EDT [facility] Hematocrit 36.7 35.0 - 47.0 % LAB HEMETOLOGY METHOD 03/20/2025 2:23 PM EDT [facility] MCV 105.2(H) 79.0 - 98.0 FL LAB HEMETOLOGY METHOD 03/20/2025 2:23 PM EDT [facility] MCH 33.0(H) 27.0 - 32.0 pcg LAB HEMETOLOGY METHOD 03/20/2025 2:23 PM EDT [facility] MCHC 31.3(L) 32.0 - 37.0 g/dL LAB HEMETOLOGY METHOD 03/20/2025 2:23 PM EDT [facility] RDW 14.1 11.0 - 15.0 % LAB HEMETOLOGY METHOD 03/20/2025 2:23 PM EDT [facility] Platelets 243 130 - 400 K/mcL LAB HEMETOLOGY METHOD 03/20/2025 2:23 PM [facility] MPV 11.3(H) 7.0 - 11.0 FL LAB [facility]OLOG[facility] NRBC 0.2 <1.0 % [facility]OLOGY [facility]/20[facility] NRBC Absolute 0.02 <0.10 K/mcL LAB HEMETOLOGY METHOD 03/20/2025 2:23 PM [facility] Neutrophils Relative 75.9 % LAB HEMETOLOGY METHOD 03/20/2025 2:23 PM [facility] Lymphocytes Relative 8.7 % LAB HEMETOLOGY METHOD 03/20/2025 2:23 PM [facility] Monocytes Relative 12.2 % LAB HEMETOLOGY METHOD 03/20/2025 2:23 PM [facility] Eosinophils Relative 0.7 % LAB HEMETOLOGY METHOD 03/20/2025 2:23 PM [facility] Basophils Relative 0.7 % LAB HEMETOLOGY METHOD 03/20/2025 2:23 PM [facility] Immature Granulocytes Relative 1.8 % LAB HEMETOLOGY METHOD 03/20/2025 2:23 PM [facility] Neutrophils Absolute 8.36(H) 1.50 - 7.00 K/mcL LAB HEMETOLOGY METHOD 03/20/2025 2:23 PM [facility] Lymphocytes Absolute 0.96(L) 1.00 - 5.00 K/mcL LAB HEMETOLOGY METHOD [facility]/20[facility]25 [facility] Monocytes Absolute 1.34(H) 0.20 - 1.00 K/mcL LAB HEMETOLOGY METHOD 03/20/2025 2:23 PM EDT [facility] Eosinophils Absolute 0.08 0.00 - 0.50 K/mcL LAB HEMETOLOGY METHOD 03/20/2025 2:23 PM EDT [facility] Basophils Absolute 0.08 0.00 - 0.20 K/mcL LAB HEMETOLOGY METHOD 03/20/2025 2:23 PM EDT [facility] Immature Granulocytes Absolute 0.20(H) 0.00 - 0.03 K/mcL LAB HEMETOLOGY METHOD 03/20/2025 2:23 PM EDT [facility] Blood Venous blood specimen / Unknown Venipuncture / Unknown 03/20/2025 12:31 PM EDT 03/20/2025 12:31 PM EDT Ayanna Jaffe MD LAB BLOOD ORDERABLES Fin al Result Performing Organization Address City/[facility]/ZIP Co de Phone Number [facility] [address] [place] [address], [place] [phone] * Sedimentation rate (03/20/2025 12:31 PM EDT) Sed Rate 25 0 - 30 mm/hr LAB HEMETOLOGY METHOD 03/20/2025 2:14 PM EDT [facility] Blood Venous blood specimen / Unknown Venipuncture / Unknown 03/20/2025 12:31 PM EDT 03/20/2025 12:31 PM EDT us Ayanna Jaffe MD LAB BLOOD ORDERABLES Fin al Result Performing Organization Address City/[facility]/ZIP Co de Phone Number [facility] [address] [place] [address], [place] [phone] * ECG-Annotated (02/24/2025) Provider Onbase ECG ORDERABLES Final Result * CT Head wo Contrast (02/23/2025 2:53 PM EDT) Anatomical Region Laterality Modality Head and Neck Computed Tomogra phy 02/23/2025 2:57 PM EDT Impressions 02/23/2025 3:01 PM EDT Impression: No acute hemorrhage or intracranial mass effect. No significant change. Telerad EMELIA ([id number]) -------- FINAL REPORT -------- Dictated By: Fawn Levin Dictated Date: 02/23/2025 14:57 ET Assigned Physician: Fawn Levin Reviewed and Electronically Signed By: Fawn Levin Signed Date: 02/23/2025 15:01 ET Workstation ID: [id number] Transcribed By: Self Edit Transcribed Date: 02/23/2025 14:57 ET Narrative 02/23/2025 3:01 PM EDT History: Headache. Comparison: 12/10/24 Technique: Contiguous axial images were obtained at 2.5 mm intervals through the posterior fossa and at 5 mm intervals through the remainder of the brain without intravenous contrast. DLP: 808.85 mGy/cm GE Starvinepeed VCT Iterative reconstruction technique Findings: Moderate generalized [...] without intravenous contrast. DLP: 808.85 mGy/cm GE Starvinepeed VCT Iterative reconstruction technique Findings: Moderate generalized [...] mass effect. No significant change. Telekarla KAPOOR ([id number]) -------- FINAL REPORT -------- Dictated By: Fawn Levin Dictated Date: 02/23/2025 14:57 ET Assigned Physician: Fawn Levin Reviewed and Electronically Signed By: Fawn Levin Signed Date: 02/23/2025 15:01 ET Workstation ID: [id number] Transcribed By: Self Edit Transcribed Date: 02/23/2025 [...] when clinically appropriate, to exclude this possibility. Telekarla KAPOOR ([id number]) -------- FINAL REPORT -------- Dictated By: Fawn Levin Dictated Date: 02/23/2025 15:01 ET Assigned Physician: Fawn Levin Reviewed and Electronically Signed By: Fawn Levin Signed Date: 02/23/2025 15:05 ET Workstation ID: [id number] Transcribed By: Self Edit Transcribed Date: 02/23/2025 15:01 ET Narrative 02/23/2025 3:05 PM EDT History: Left lower quadrant abdominal pain. Comparison: 08/23/23 Technique: Helical volumetric imaging of the abdomen and pelvis was performed without intravenous or oral contrast. DLP: 480.07 mGy/cm GE Lightspeed VCT Iterative reconstruction technique Findings: Chronic pleural-parenchymal [...] intravenous or oral contrast. DLP: 480.07 mGy/cm Friendsurancepeed VCT Iterative reconstruction technique Findings: Chronic pleural-parenchymal [...] appropriate, to exclude this possibility. Telerad EMELIA ([id number]) -------- FINAL REPORT -------- Dictated By: Fawn Levin Dictated Date: 02/23/2025 15:01 ET Assigned Physician: Fawn Levin Reviewed and Electronically Signed By: Fawn Levin Signed Date: 02/23/2025 15:05 ET Workstation ID: [id number] Transcribed By: Self Edit Transcribed Date: 02/23/2025 15:01 ET us Afsaneh KAPOOR IMG CT PROCEDURES Final Resu lt * Lactate, with reflex (02/23/2025 2:25 PM EDT) LACTIC ACID 1.1 0.4 - 2.0 mmol/L LAB CHEMISTRY METHOD 02/23/2025 3:25 PM EDT [facility] Blood Venous blood specimen / Unknown Venipuncture / Unknown 02/23/2025 2:25 PM EDT 02/23/2025 2:35 PM EDT us Afsaneh KAPOOR LAB BLOOD ORDERABLES Final R esult [facility] [address] [place] [address], [place] [phone] * Blood Culture, Peripheral Draw #2 (02/23/2025 2:25 PM EDT) Only the most recent of2 resultswithin the time period is included. Culture, Blood No growth at 5 days 02/28/2025 3:01 PM EDT [facility] Blood Venous blood specimen / Unknown Venipuncture / Unknown 02/23/2025 2:25 PM EDT 02/23/2025 2:35 PM EDT Afsaneh KAPOOR LAB MICROBIOLOGY - GENERAL O RDERABLES Final Result [facility] [address] [place] [address], [place] [phone] * XR Chest 1 View (02/23/2025 2:15 PM EDT) Anatomical Region Laterality Modality Body Radiographic Monserrat ging 02/23/2025 2:33 PM EDT Impressions 02/23/2025 2:37 PM EDT Impression: Stable radiographic appearance of the chest, including volume loss and chronic pleural-parenchymal opacity in the left hemithorax consistent with previously treated lung carcinoma. No acute process identified. Telekarla KAPOOR ([id number]) -------- FINAL REPORT -------- Dictated By: Fawn Levin Dictated Date: 02/23/2025 14:33 ET Assigned Physician: Fawn Levin Reviewed and Electronically Signed By: Fawn Levin Signed Date: 02/23/2025 14:37 ET Workstation ID: [id number] Transcribed By: Self Edit Transcribed Date: 02/23/2025 14:33 ET Narrative 02/23/2025 2:37 PM EDT History: Dyspnea. Personal history of lung carcinoma. Comparison: 07/30/23, thoracic CT 09/09/24 [place], [place] Findings: Portable AP upright chest at [...] lung carcinoma. Comparison: 07/30/23, thoracic CT 09/09/24 [place], [place] Findings: Portable AP upright chest at [...] carcinoma. No acute process identified. Telerad EMELIA ([id number]) -------- FINAL REPORT -------- Dictated By: Fawn Levin Dictated Date: 02/23/2025 14:33 ET Assigned Physician: Fawn Levin Reviewed and Electronically Signed By: Fawn Levin Signed Date: 02/23/2025 14:37 ET Workstation ID: [id number] Transcribed By: Self Edit Transcribed Date: 02/23/2025 14:33 ET Afsaneh KAPOOR IMG XR PROCEDURES Final Resu lt * Urinalysis with reflex microscopic and culture (02/23/2025 2:04 PM EDT) Specific [facility] Urine 1.006 1.003 - 1.030 LAB URINALYSIS - AUTOMATED METHOD 02/23/2025 2:17 PM EDT [facility] pH, Urine 7.5 5.0 - 8.0 pH LAB URINALYSIS - AUTOMATED METHOD 02/23/2025 2:17 PM EDT [facility] Leukocytes, Urine Negative Negative LAB URINALYSIS - AUTOMATED METHOD 02/23/2025 2:17 PM EDT [facility] Nitrite, Urine Negative Negative LAB URINALYSIS - AUTOMATED METHOD 02/23/2025 2:17 PM [facility] Protein, Urine Negative <=Trace mg/dL LAB URINALYSIS - AUTOMATED METHOD 02/23/2025 2:17 PM [facility] Glucose, Urine Negative Negative mg/dL LAB URINALYSIS - AUTOMATED METHOD 02/23/2025 2:17 PM [facility] Ketones, Urine Negative Negative mg/dL LAB URINALYSIS - AUTOMATED METHOD 02/23/2025 2:17 PM [facility] Urobilinogen, Urine 0.2 0.2 - 1.0 mg/dL LAB URINALYSIS - AUTOMATED METHOD 02/23/2025 2:17 PM [facility] Bilirubin, Urine Negative Negative LAB URINALYSIS - AUTOMATED METHOD 02/23/2025 2:17 PM [facility] Blood, Urine Negative Negative LAB URINALYSIS - AUTOMATED METHOD 02/23/2025 2:17 PM [facility] Urine Urine specimen obtained by clean catch procedure / Unknown Non-blood Collection / Unknown 02/23/2025 2:04 PM EDT 02/23/2025 2:05 PM EDT Afsaneh KAPOOR LAB URINE ORDERABLES Final R esult [facility] [address] [place] [address], * Martinez urine culture tube (02/23/2025 2:04 PM EDT) Extra Tube Hold for add-ons. 02/23/2025 4:01 PM EDT [facility] Comment:Auto resulted. Urine Urine specimen obtained by clean catch procedure / Unknown Non-blood Collection / Unknown 02/23/2025 2:04 PM EDT 02/23/2025 2:05 PM EDT Afsaneh KAPOOR LAB URINE ORDERABLES Final R esult [facility] [address] [place] [address], [place] [phone] * Troponin I high sensitivity (02/23/2025 1:15 PM EDT) [facility] High Sensitivity Troponin I 25 <=54 ng/L LAB CHEMISTRY METHOD 02/23/2025 2:15 PM EDT [facility] Blood Venous blood specimen / Unknown Venipuncture / Unknown 02/23/2025 1:15 PM EDT 02/23/2025 1:39 PM EDT Narrative [facility] - 02/23/2025 2:15 PM EDT High levels of biotin in samples may falsely decrease hsTroponin values. Use caution when interpreting hsTroponin results in patients taking biotin who exhibit renal impairment (eGFR <60) or in patients taking more than 20 mg/day of biotin. us Afsaneh KAPOOR LAB BLOOD ORDERABLES Final R esult Performing Organization Address City/[facility] Co de Phone Number [facility] [address] [place] [address], [place] [phone] * (ABNORMAL) Prothrombin time with INR (02/23/2025 1:15 PM EDT) [facility] Protime 14.9(H) 10.6 - 13.9 sec LAB COAGULATION METHOD 02/23/2025 1:52 PM EDT [facility] INR 1.2 LAB COAGULATION METHOD 02/23/2025 1:52 PM EDT [facility] Blood Venous blood specimen / Unknown Venipuncture / Unknown 02/23/2025 1:15 PM EDT 02/23/2025 1:40 PM EDT Afsaneh KAPOOR LAB BLOOD ORDERABLES Final R esult Performing Organization Address City/[facility]/ZIP Co de Phone Number [facility] [address] [place] [address], [place] [phone] * Type and screen (02/23/2025 1:15 PM EDT) Pathologist [facility] ABO Group A 02/23/2025 2:47 PM EDT [facility] Rh Type Positive 02/23/2025 2:47 PM EDT [facility] Antibody Screen Negative 02/23/2025 2:47 PM EDT [facility] Blood Venous blood specimen / Unknown Venipuncture / Unknown 02/23/2025 1:15 PM EDT 02/23/2025 1:40 PM EDT Afsaneh KAPOOR LAB BLOOD BANK TEST ORDERABL ES Final Result Performing Organization Address [facility]/ZIP Co de Phone Number [facility] [address] [place] [address], [place] [phone] * (ABNORMAL) Comprehensive Metabolic Panel (CMP) (02/23/2025 1:15 PM EDT) Pathologist [facility] Sodium 136 133 - 145 mmol/L LAB CHEMISTRY METHOD 02/23/2025 2:13 PM EDT [facility] Potassium 3.5 3.5 - 5.5 mmol/L LAB CHEMISTRY METHOD 02/23/2025 2:13 PM EDT [facility] Chloride 97 96 - 110 mmol/L LAB CHEMISTRY METHOD 02/23/2025 2:13 PM EDT [facility] CO2 33(H) 21 - 32 mmol/L LAB CHEMISTRY METHOD 02/23/2025 2:13 PM EDT [facility] Anion Gap 6 3 - [...] 2:13 PM [facility] Total Bilirubin 0.5 0.0 - 1.4 mg/dL LAB CHEMISTRY METHOD 02/23/2025 2:13 PM [facility] Blood Venous blood specimen / Unknown Venipuncture / Unknown 02/23/2025 1:15 PM EDT 02/23/2025 1:39 PM EDT Afsaneh KAPOOR LAB BLOOD ORDERABLES Final R esult Performing Organization Address City/[facility]/ZIP Co de Phone Number [facility] [address] [place] [address], * 12-Lead ECG (02/23/2025 1:05 PM EDT) Ventricular Rate ECG 79 BPM GEM[facility] Atrial Rate 79 BPM GEMUSE P-R Interval 164 ms GEMUSE QRS Duration 138 ms GEMUSE Q-T Interval 422 ms GEMUSE QTc 483 ms GEMUSE P Wave Xenia 68 degrees GEMUSE R Xenia -59 degrees GEMUSE T Xenia 62 degrees GEMUSE ECG Interpretation Normal sinus rhythm Right bundle branch block Left anterior fascicular block Bifascicular block Abnormal ECG When compared with ECG of 23-NOV-2021 13:05, Right bundle branch block is now Present Confirmed by MARC BACH ([id number]) on 02/23/2025 6:21:33 PM GEMUSE 02/23/2025 1:05 PM EDT 02/23/2025 6:21 PM EDT Afsaneh KAPOOR ECG ORDERABLES Final Result Performing Organization Address City/[facility]/ZIP Co de Phone Number G[facility] from Last 3 Months Insurance MEDICARE [facility] Advance Directives Documents on File Type Date Recorded 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
--- OUTSIDE RECORDS SUMMARY | 2025-03-28 11:47 | XMS_ITS | Clinical Summary ---
Author Organization [address] Address [address] [place] [address] Phone Care Team Providers [facility] Television Rental Clerk Name Role Phone Caitlyn Bowie MD Primary Care Provider +1- [phone] Allergies Active Allergy Reactions Criticality Noted Date [...] Leiden (HC Code) 03/18/2013 Dyspnea on exertion KADNY on CPAP Exposed to tobacco smoke by family members ramos paige indoors Bronchiectasis COPD (chronic obstructive pulmonary disease) (HC Code) Mildly restrictive lung disease Resolved Problems Problem Noted Date Diagnosed Date Resolved Date KANDY (obstructive sleep apnea) 11/21/2016 01/22/2018 Carotid stenosis, asymptomatic, right 09/18/2015 06/10/2016 Encounters Date Type Department Care Team Description 01/20/2025 Telephone [facility] at [address] [address] Ronald Mills MD Triage from Last 3 [...] PM EDT Telemedicine Cancer Center at [address] [place], [place] [address] Ronald Mills MD [address] [place] [address] Rd [address] [place] [address] Health Maintenance Due Date Last [...] - 144 mmol/L 04/05/2022 1:43 PM EDT [facility] MEDICINE [facility] Potassium 4.7 3.3 - 5.3 mmol/L 04/05/2022 1:43 PM EDT [facility]IC[facility] Chloride 100 98 - 107 mmol/L 04/05/2022 1:43 PM EDT [facility]IC[facility] CO2 30 20 - 30 mmol/L 04/05/2022 1:43 PM EDT [facility] Anion Gap 8 7 - 17 04/05/2022 1:43 PM EDT [facility]IC[facility] Glucose 115(H) 70 - 100 mg/dL 04/05/2022 1:43 PM EDT [facility]ORY MEDICINE [facility] BUN 16 8 - 23 mg/dL 04/05/2022 1:43 PM EDT [facility] Creatinine 0.89 0.40 - 1.30 mg/dL 04/05/2022 1:43 PM EDT [facility] LAB[facility]ATORY MEDICINE [facility] Calcium 10.5(H) 8.8 - 10.2 mg/dL 04/05/2022 1:43 PM EDT [facility]ORY MEDICINE [facility] BUN/Creatinine Ratio 18.0 8.0 - 23.0 03/11 1:43 PM EDT [facility]IC[facility] Total Protein 7.0 6.6 - 8.7 g/dL 04/05/2022 1:43 PM [facility] DEPARTMENT OF LABORATORY MEDICINE [facility] Albumin 4.2 3.6 - 4.9 g/dL 04/05/2022 1:43 PM T [facility] DE[facility] LABORATORY MEDICINE [facility] Total Bilirubin 0.6 <=1.2 mg/dL 04/05/2022 1:43 PM [facility] DEPARTMENT LABORATORY MEDICINE [facility] Alkaline Phosphatase 58 9 - 122 U/L 04/05/2022 1:43 PM [facility] DEPARTMENT LABORATORY MEDICINE [facility] Alanine Aminotransferase (ALT) 19 10 - 35 U/L 04/05/2022 1:43 PM [facility] DEPARTMENT OF LABORATORY MEDICINE [facility] Comment:Calcium dobesilate c an cause artificially low ALT results at therapeutic concentrations Aspartate Aminotransferase (AST) 26 10 - 35 U/L 04/05/2022 1:43 PM [facility] DEPARTMENT LABORATORY MEDICINE [facility] Globulin 2.8 2.3 - 3.5 g/dL 04/05/2022 1:43 PM [facility] DEPARTMENT LABORATORY MEDICINE [facility] A/G Ratio 1.5 1.0 - 2.2 04/05/2022 1:43 PM EDT [facility] DEPART[facility] OF LABORATORY MEDICINE [facility] AST/ALT Ratio 1.4 See Comment 04/05/2022 1:43 PM EDT [facility] DE[facility]ORY MEDICINE [facility] Comment: Adult with mild elevations of transaminases (< 5 times upper limit of normal): AST/ALT > 2 suggests alcoholic liver injury AST/ALT < 1 suggests non-alcoholic fatty liver disease (NAFLD) Rayne (healthy): AST/ALT can be > 3 on day 0 AST/ALT < 2 by day 5 The thresholds provided focus on the most common etiologies of elevated serum transaminase levels and the associated alteration of AST:ALT ratios; they are not intended to exclude other feasible and clinically appropriate possibilities eGFR (Creatinine) >60 >=60 mL/min/1.7 3m2 04/05/2022 1:43 PM EDT [facility] DEPART[facility] LAB[facility]ATORY MEDICINE [facility] Comment:Estimated glomerular filtration rate (eGFR) was [...] MD LAB BLOOD ORDERABLES Final Resul t [facility] OF [facility]ORATORY MEDICINE [facility] [address] [place] [address] * Bone Density Result Scan (05/10/2017) Historical Provider IMG SCAN REPORTS Final Resul t * (ABNORMAL) Lipid panel (03/18/2016 2:55 PM EDT) Cholesterol 229(H) 115 - 199 mg/dL 03/18/2016 8:11 PM EDT [facility] HDL 83 >=40 mg/dL 03/18/2016 8:11 PM EDT [facility] Triglycerides 71 30 - 150 mg/dL 03/18/2016 8:11 PM EDT [facility] Chol/HDL Ratio 2.8 <=5 03/18/2016 8:11 PM EDT [facility] Comment:Cholesterol/HDL rati o cannot be calculated. LDL Calculated 132 See Comment mg/dL 03/18/2016 8:11 PM EDT [facility] Comment: <100: Optimal 100-129: Near optimal/above optimal 130-159: Borderline high risk 160-189: High risk >=190: Very high risk Blood specimen (specimen) Venipuncture / Unknown 03/18/2016 2:55 PM EDT 03/18/2016 3:17 PM EDT Narrative [facility] - 03/18/2016 8:11 PM EDT $18.27 us Sangeeta Garces MD LAB BLOOD ORDERABLES Fin al Result Performing Organization Address City/State/[facility] Co de Phone Number [facility] [address] [place] [address] * MAMMOGRAPHY REPORT (04/25/2013 6:47 AM EDT) 04/25/2013 6:47 AM EDT us Provider Not In System IMG SCAN REPORTS Final Re sult from Last 3 Months or Most Recently Relevant to Health Maintenance Insurance MEDICARE [facility] MEDICARE [facility]ICARE [facility] Advance Directives * Full ACLS (Latest Code Status on File) Date Activated Date Inactivated Comments 12/15/2018 7:13 PM 12/16/2018 6:09 PM * Full Interventions Date Activated Date Inactivated Comments 03/18/2016 6:34 PM 03/19/2016 6:40 PM Care Teams Hospital Television Rental Clerk Relationship Specialty Start Date End Date Caitlyn Bowie MD [address] [address] PCP - General Internal Medicine 05/06/21
--- OUTSIDE RECORDS SUMMARY | 2025-03-28 11:47 | XMS_ITS | Encounter Summary ---
Author Organization [facility] Address [address] [place] [address] Care Team Providers Care Family Program Specialist Name Role Phone Cristofer Hope MD Primary Care Provider Victorino Read MD Primary Care Provider UnavailSharon Kimbrough Primary Care Provider Unava ilBrennan Newman MD Primary Care Provider Unavailab Hayden Montes MD Unavailable [phone] Pallavi Flood NP Unavailable [phone]- [phone] Caitlyn Bowie MD Primary Care Provider Unava ilable Encounter Details Date Type Department Care Team Description 10/24/2017 Pt. Non Urgent Medical Question Pulmonology - [address] [place] [address] Leslie Caro NP Allergic rhinitis, [...] me. Thank you, Jovana chaveso.b. 1945 telephone [phone] documented in this encounter Plan of Treatment Not on file documented as of this encounter Visit Diagnoses Diagnosis Allergic rhinitis, unspecified chronicity, unspecified seasonality, unspecified trigger- Primary documented in this encounter Care Teams Family Program Specialist Relationship Specialty Start Date End Date Cristofer Hope MD PCP - General Internal Medicine 05/16/17 12/20/17 Victorino Martin MD PCP - General Internal Medicine 12/21/17 08/01/18 Sharon Vides PCP - General Internal Medicine 08/02/18 05/26/20 Brennan Burnett MD PCP - General Internal Medicine 05/27/20 12/07/21 Caitlyn Bowie MD [address] [place] [address] PCP - General Internal Medicine 12/08/21 Hayden Shah MD [address] [place] [address] Specialist Cardiovascular Disease 09/01/20 Pallavi Flood NP [address] [place] [address] Cardiology 09/01/20 documented as of this encounter
--- OUTSIDE RECORDS SUMMARY | 2025-03-28 11:47 | XMS_ITS | Encounter Summary ---
Author Organization [facility] Address [address] [place] [address] Care Team Providers Care Material Analyst Name Role Phone Caitlyn Bowie MD Primary Care Provider +1- [phone] Encounter Details Date Type Department Care Team (Late st Contact Info) Description 04/10/2021 Scanned Document INTERFACE DEFAULT [address] [place] [address] System, Provider Not In Social History Tobacco [...] [facility] [address] [facility] [address] [place] [address] Ronald Mills MD [address] [place] [address] [address] [place] [address] documented as of this encounter [...] as of this encounter Care Teams Material Analyst Relationship Specialty Start Date End Date Caitlyn Bowie MD [address] [address] PCP - General Internal Medicine 05/06/21 documented as of this encounter
--- OUTSIDE RECORDS SUMMARY | 2025-03-28 11:47 | XMS_ITS | Encounter Summary ---
Author Organization [facility] Address [address] [place] [address] Care Team Providers Care Neurosurgery Research Director Name Role Phone Caitlyn Bowie MD Primary Care Provider [phone]- [phone] Encounter Details Date Type Department Care Team (Late st Contact Info) Description 04/13/2021 Scanned Document INTERFACE DEFAULT [address] [place] [address] System, Provider Not In Social History Tobacco [...] Cancer Center at [facility] [address] [facility] [address] [place], [place] [address] Ronald Mills MD [address] [place] [address] [address] [place] [address] documented as of this encounter [...] End Date Caitlyn Bowie MD [address] [address] PCP - General Internal Medicine 05/06/21 documented as of this encounter
--- OUTSIDE RECORDS SUMMARY | 2025-03-28 11:47 | XMS_ITS | Encounter Summary ---
Author Organization [facility] Address [address] [place] [address] Care Team Providers Care Pearl Hand Name Role Phone Cristofer Hope MD Primary Care Provider Maria GuadalupevaVictorino Negrete MD Primary Care Provider Unavaila Sharon Rios Primary Care Provider Unava ilable Brennan Burnett MD Primary Care Provider Unavailab Hayden Montes MD Unavailable [phone] Pallavi Flood NP Unavailable [phone] Caitlyn Bowie MD Primary Care Provider Unava ilable Reason for Visit * Reason Onset Date Comments medication problems 10/23/2017 Encounter Details Date Type Department Care Team Description 10/23/2017 Telephone Pulmonology - [address] [place] [address] Leslie Caro NP medication problems Social [...] on filedocumented in this encounter Care Teams Pearl Hand Relationship Specialty Start Date End Date Cristofer Hope MD PCP - General Internal Medicine 05/16/17 12/20/17 Victorino Martin MD PCP - General Internal Medicine 12/21/17 08/01/18 Sharon Vides PCP - General Internal Medicine 08/02/18 05/26/20 Brennan Burnett MD PCP - General Internal Medicine 05/27/20 12/07/21 Caitlyn Bowie MD [address] [place] [address] PCP - General Internal Medicine 12/08/21 Hayden Shah MD [address] [place] [address] Specialist Cardiovascular Disease 09/01/20 Pallavi Flood NP [address] [place] [address] Cardiology 09/01/20 documented as of this encounter
--- OUTSIDE RECORDS SUMMARY | 2025-03-28 11:47 | XMS_ITS | Encounter Summary ---
Author Organization [facility] Address [address] [place] [address] Care Team Providers Care Drying Oven Attendant Name Role Phone Victorino Martin MD Primary Care Provider Sharon Odonnell Primary Care Provider Brennan Castro MD Primary Care Provider Unavailab Hayden Montes MD Unavailable [phone] Pallavi Flood NP Unavailable [phone]- [phone] Caitlyn Bowie MD Primary Care Provider Johnathon shaver Encounter Details Date Type Department Care Team Description 02/06/2018 Telephone Pulmonology - [address] [place] [address] Henry Kelly MD Social History [...] on filedocumented in this encounter Care Teams Drying Oven Attendant Relationship Specialty Start Date End Date Victorino Martin MD PCP - General Internal Medicine 12/21/17 08/01/18 Sharon Vides PCP - General Internal Medicine 08/02/18 05/26/20 Brennan Burnett MD PCP - General Internal Medicine 05/27/20 12/07/21 Caitlyn Bowie MD [address] [place] [address] PCP - General Internal Medicine 12/08/21 Hayden Shah MD [address] [place] [address] Specialist Cardiovascular Disease 09/01/20 Pallavi Flood NP [address] [place] [address] Cardiology 09/01/20 documented as of this encounter
--- OUTSIDE RECORDS SUMMARY | 2025-03-28 11:47 | XMS_ITS | Encounter Summary ---
Author Organization [facility] and [facility] Address [address] [place] [address] Care Team Providers Care Director Of Tax Services Name Role Phone Caitlyn Bowie MD Primary Care Provider +1- [phone] Encounter Details Date Type Department Care Team (Late st Contact Info) Description 04/12/2021 Scanned Document INTERFACE DEFAULT [address] [place] [address] System, Provider Not In Social History Tobacco [...] [facility] [address] [facility] [address] [place], [place] [address] Ronald Mills MD [address] [place] [address] [address] [place] [address] documented as of this encounter [...] of this encounter Care Teams Director Of Tax Services Relationship Specialty Start Date End Date Caitlyn Bowie MD [address] [address] PCP - General Internal Medicine 05/06/21 documented as of this encounter
--- OUTSIDE RECORDS SUMMARY | 2025-03-28 11:47 | XMS_ITS | Encounter Summary ---
Author Organization [facility] Address [address] [place] [address] Care Team Providers Care Shuttle Driver Name Role Phone Victorino Martin MD Primary Care Provider Sharon Odonnell Primary Care Provider Brennan Castro MD Primary Care Provider UnavailHayden Fernandez MD Unavailable [phone] Pallavi Flood NP Unavailable [phone] Caitlyn Bowie MD Primary Care Provider Johnathon shaver Encounter Details Date Type Department Care Team Description 01/28/2018 [facility] Medical Records [address] [place] [address] Arianne Sigala MD Social History Tobacco Use [...] on filedocumented in this encounter Care Teams Shuttle Driver Relationship Specialty Start Date End Date Victorino Martin MD PCP - General Internal Medicine 12/21/17 08/01/18 Sharon Vides PCP - General Internal Medicine 08/02/18 05/26/20 Brennan Burnett MD PCP - General Internal Medicine 05/27/20 12/07/21 Caitlyn Bowie MD [address] [place] [address] PCP - General Internal Medicine 12/08/21 Hayden Shah MD [address] [place], [place] [id number] Specialist Cardiovascular Disease 09/01/20 Pallavi Flood NP [address] [place] [id number] Cardiology 09/01/20 documented as of this encounter
--- OUTSIDE RECORDS SUMMARY | 2025-03-28 11:47 | XMS_ITS | Encounter Summary ---
Author Organization [facility] Address [address] [place] [address] Care Team Providers Care Rn Flight Name Role Phone Caitlyn Bowie MD Primary Care Provider +1- [phone] Encounter Details Date Type Department Care Team (Late st Contact Info) Description 03/01/2017 Scanned Document Onco-Oncology Program at [address] [place] [address] Norma Renee MD [address] [place] [address] [address] [place] [phone] Social History Tobacco Use Types Packs/Day Years [...] 4:00 PM EDT Telemedicine Cancer Center at [address] [place] [address] Ronald Mills MD [address] [facility] [address] [place] [address] documented as of this encounter Visit Diagnoses Not on filedocumented in this encounter Additional Health Concerns Infection Onset Date Last Indicated Resolved Time COVID-19 03/05/2022 03/05/2022 03/15/2022 7:18 PM EDT documented as of this encounter Care Teams Rn Flight Relationship Specialty Start Date End Date Caitlyn Bowie MD [address] [facility] [address] [place] [address] PCP - General Internal Medicine 05/06/21 Henry Kelly MD Pulmonary Department [address] [facility] [place] [address] Physician Pulmonary Disease 09/06/17 06/22/20 documented as of this encounter
--- OUTSIDE RECORDS SUMMARY | 2025-03-28 11:47 | XMS_ITS | Encounter Summary ---
Author Organization [facility] and [facility] Address [address] [place] [address] Care Team Providers Care Set Up / Operator Name Role Phone Caitlyn Bowie MD Primary Care Provider +1- [phone] Encounter Details Date Type Department Care Team (Late st Contact Info) Description 03/23/2021 Scanned Document INTERFACE DEFAULT [address] [place] [address] System, Provider Not In Social History Tobacco [...] [facility] at [facility] [address] [facility] [address] [place] [address] Ronald Mills MD [address] [place] [address] [address] [place] [address] documented as of this encounter [...] End Date Caitlyn Bowie MD [address] [address] PCP - General Internal Medicine 05/06/21 documented as of this encounter
--- OUTSIDE RECORDS SUMMARY | 2025-03-28 11:47 | XMS_ITS | Encounter Summary ---
Author Organization [facility] Address [address] [place] [address] Care Team Providers Care Logistical Engineer Name Role Phone Victorino Martin MD Primary Care Provider UnavailSharon Kimbrough Primary Care Provider Unava ilable Brennan Burnett MD Primary Care Provider Unavailab Hayden Montes MD Unavailable [phone] Pallavi Flood NP Unavailable [phone] Caitlyn Bowie MD Primary Care Provider Unava chhaya Reason for Visit * Reason Comments E-prescribe Rx Request Encounter Details Date Type Department Care Team Description 04/26/2018 Refill Pulmonology [address] [place] [address] Henry Kelly MD E-prescribe Rx [...] NO Patients current insurance carrier is: Payor: MEDICARE-[employer] / [place] / Product Type: MEDICARE [id number] documented in this encounter Plan of Treatment Not on file documented as of this encounter Visit Diagnoses Not on filedocumented in this encounter Care Teams Logistical Engineer Relationship Specialty Start Date End Date Victorino Martin MD PCP - General Internal Medicine 12/21/17 08/01/18 Sharon Vides PCP - General Internal Medicine 08/02/18 05/26/20 Brennan Burnett MD PCP - General Internal Medicine 05/27/20 12/07/21 Caitlyn Bowie MD [address] [place] [address] PCP - General Internal Medicine 12/08/21 Hayden Shah MD [address] [place] [id number] Specialist Cardiovascular Disease 09/01/20 Pallavi Flood NP [address] [place] [address] Cardiology 09/01/20 documented as of this encounter
--- OUTSIDE RECORDS SUMMARY | 2025-03-28 11:47 | XMS_ITS | Encounter Summary ---
Author Organization [facility] Address [address] [place] [address] Care Team Providers Care Unit Assistant Name Role Phone Caitlyn Bowie MD Primary Care Provider +1- [phone] Encounter Details Date Type Department Care Team (Late st Contact Info) Description 04/11/2021 Scanned Document INTERFACE DEFAULT [address] [place] [address] System, Provider Not In Social History Tobacco [...] [facility] [address] [facility] [address] [place], [place] [phone] Ronald Mills MD [address] [place] [address] [address] [place] [address] documented as of this encounter [...] as of this encounter Care Teams Unit Assistant Relationship Specialty Start Date End Date Caitlyn Bowie MD [address] [address] PCP - General Internal Medicine 05/06/21 documented as of this encounter
--- OUTSIDE RECORDS SUMMARY | 2025-03-28 11:47 | XMS_ITS | Encounter Summary ---
Author Organization [facility] Address [address] [place] [address] Care Team Providers Care Tray Room Worker Name Role Phone Caitlyn Bowie MD Primary Care Provider +1- [phone] Encounter Details Date Type Department Care Team (Late st Contact Info) Description 04/21/2021 Scanned Document INTERFACE DEFAULT [address] [place] [address] System, Provider Not In Social History Tobacco [...] [facility] [address] [facility] [address] [place], [place] [phone] Ronald Mills MD [address] [place] [address] [address] [place] [address] documented as [...] documented as of this encounter Care Teams Tray Room Worker Relationship Specialty Start Date End Date Caitlyn Bowie MD [facility] [address] [address] PCP - General Internal Medicine 05/06/21 documented as of this encounter
--- OUTSIDE RECORDS SUMMARY | 2025-03-28 11:47 | XMS_ITS | Encounter Summary ---
Author Organization [facility] Address [address] [place] [address] Care Team Providers Care Management Scientist Name Role Phone Caitlyn Bowie MD Primary Care Provider +1- [phone] Encounter Details Date Type Department Care Team (Late st Contact Info) Description 04/22/2021 Scanned Document INTERFACE DEFAULT [address] [place] [address] System, Provider Not In Social History Tobacco [...] [facility] [address] [facility] [address] [place], [place] [address] Ronald Mills MD [address] [place] [address] [address] [place] [address] documented as of this encounter [...] as of this encounter Care Teams Management Scientist Relationship Specialty Start Date End Date Caitlyn Bowie MD [facility] [address] [address] PCP - General Internal Medicine 05/06/21 documented as of this encounter
--- OUTSIDE RECORDS SUMMARY | 2025-03-28 11:47 | XMS_ITS | Encounter Summary ---
Author Organization [facility] and [facility] Address [address] [place] [address] Care Team Providers Care Configuration Manager Name Role Phone Caitlyn Bowie MD Primary Care Provider +1- [phone] Encounter Details Date Type Department Care Team (Late st Contact Info) Description 08/09/2017 Scanned Document Cardiovascular Medicine at [address] [place] [address] System, Provider Not In Social History Tobacco [...] [facility] [address] [place] [address] Ronald Mills MD [address] [facility] [address] [place] [address] documented as of this encounter [...] documented as of this encounter Care Teams Configuration Manager Relationship Specialty Start Date End Date Caitlyn Bowie MD 3400 [facility] Max 1 [place] [address] PCP - General Internal Medicine 05/06/21 Henry Kelly MD Pulmonary Department 175 [facility], [address] [place] [address] Physician Pulmonary Disease 09/06/17 06/22/20 documented as of this encounter
--- OUTSIDE RECORDS SUMMARY | 2025-03-28 11:47 | XMS_ITS | Patient Health Record ---
Author Organization [facility] Address [address] [facility] [address] [place] [address] Care Team Providers Care Welcome Hostess Name Role Phone EVELIN RAMSAY Primary Care Provider Yenny Hou Unavailable [phone] Allergies Allergen (clinical drug ingredient) Drug/Non Drug [...] UROBILINOGEN Neg BILIRUBIN Neg BLOOD Neg Urinalysis, Complete-[id number] Reviewed date:05/04/2024 11:35:42 PM Interpretation: Performing Lab:[facility], [address] [facility], [place], Phone - [phone], Director - Arely Notes/Report: Specific Huson 1.009 1.005-1.030 pH 6.5 5.0-7.5 Urine-Color Yellow [...] Bacteria None seen None seen/Few Urine Culture, Routine-[id number] Reviewed date:05/04/2024 11:35:22 PM Interpretation: Performing Lab:[facility], [address] [place] [address], Phone - [phone], Director - Arely Notes/Report: Urine Culture, Routine Final report Result 1 Culture shows less than 10,000 colony forming units of bacteria per milliliter of urine. This colony count is not generally considered to be clinically significant. PDF Report Reviewed date:05/04/2024 11:35:04 PM Interpretation: Performing Lab:[facility], [address] [place] [address], Phone - [phone], Director - Arely Notes/Report: Urinalysis Reviewed date:07/09/2024 [...] 25MCG 1 ORAL daily; Durati on: -3 [facility] 06/10/2014 Active ZyrTEC Allergy 10MG [...] 50MG 1 ORAL at bedtime; Duration: -3 [facility] 06/10/2014 Active Meclizine HCl 25 MG 1 tablet as needed Orally [facility] 06/10/2014 Active Albuterol Sulfate (2.5 MG/3ML)0.083% Inhalation 4 x a day prn 06/10/2014 Active Valium 5MG 1 tablet as needed O RAL at bedtime, 1/2 tab prn during the day [facility] 06/10/2014 Active Social History Tobacco [...] Status Risk Notes Problem Postmenopausal atrophic vaginitis (47116156) Postmenopausal atrophic vaginitis (N95.2) Active confirmed Problem Age-related osteoporosis (513479492) Age-related osteoporosis without current pathological fracture (M81.0) Active confirmed Problem Urgent desire to urinate (05246667) Urgency of urination (R39.15) Active confirmed Problem 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 Problem Chronic systolic heart failure (201798278) Chronic systolic (congestive) heart failure (I50.22) Active confirmed Problem Chronic obstructive pulmonary disease (03356968) Chronic obstructive pulmonary disease, unspecified (J44.9) Active confirmed Problem Functional urinary incontinence (701730175) Functional 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) Active confirmed Problem Personal history of primary malignant neoplasm of bronchus (176518228) 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) Active confirmed Vital Signs Temperature 97.7 degrees Fahrenheit 07/18/2024 Blood pressure diastolic 62 mm Hg 07/18/2024 Height 63 in 07/18/2024 Blood pressure systolic 102 mm Hg 07/18/2024 Weight 126 lbs 07/18/2024 BMI 22.32 kg/m2 07/18/2024 Encounters Encounter Location Date Provider Diagnosis Total [address] [address] 05/03/2024 Yennydorothy Elizalde Urgency of urination R39.15 and Abscess of vulva N76.[address] [address] 05/10/2024 Yenny Elizalde Abscess of vulva N76 .[address] [address] 05/17/2024 Yenny Elizalde Abscess of vulva N76 .[address] [address] 07/09/2024 Yenny Tonio Urgency of urination R39.15 ; Acute vaginitis N76.0 and Postmenopausal atrophic vaginitis N95.[address] [address] 07/18/2024 Yenny Elizalde Encounter for screening mammogram for malignant neoplasm of breast Z12.31 and Mastodynia N64.[address] [address] 05/10/2024 Yenny Lovettva [facility] [address] [address] 05/13/2024 Yenny Elizalde [facility] [address] [facility] [address] [place] [address] 06/11/2024 Yenny Elizalde Assessments Encounter Date Diagnosis [...] TO BED. IBUPROFEN OR ACETAMINOPHEN PRN. 07/09/2024 Acute vaginitis (ICD-10 - N76.0) DISCUSSED [...] [place]. RECURRENT NATURE OF BV WAS EMPHASIZED. 05/03/2024 Abscess of vulva (ICD-10 - N76.4) DISCUSSED FINDINGS, DX AND TX OPTIONS WITH THE PAT. SHE IS ALLERGIC TO MOST ANTIBIOTICS AND HAS OTHER MEDICAL ISSUES. [facility] CALLED [facility] AND DISCUSSED THIS PAT. [...] Date MEDICARE [address] VEDA NIEVES [id number] SHIRLEY CINDA Self - patient is the insured MED[employer] [address] [place] [address] [id number] DANIEL WATSONE Self - patient is [...]
--- OUTSIDE RECORDS SUMMARY | 2025-03-28 11:47 | XMS_ITS | Encounter Summary ---
Author Organization [facility] and [facility] Address [address] [place] [address] Care Team Providers Care Bevel Face Stoner And Polisher Name Role Phone Caitlyn Bowie MD Primary Care Provider +1- [phone] Encounter Details Date Type Department Care Team (Late st Contact Info) Description 04/11/2021 Scanned Document [facility] Health Information Management [address] [place] [address] External, Provider Social History Tobacco Use Types [...] Center at [facility] 240 [facility] Building [address] [place], [place] [address] Ronald Mills MD [address] [place] [address] [address] [place] [address] documented as of this encounter Visit Diagnoses Not on filedocumented in this encounter Additional Health Concerns Infection Onset Date Last Indicated Resolved Time COVID-19 03/05/2022 03/05/2022 03/15/2022 7:18 PM EDT Assessment Noted Time PHQ-9 Depression Total Score: 2 11/07/19 19 2:06 PM EDT documented as of this encounter Care Teams Bevel Face Stoner And Polisher Relationship Specialty Start Date End Date Caitlyn Bowie MD [address] [address] PCP - General Internal Medicine 05/06/21 documented as of this encounter
--- OUTSIDE RECORDS SUMMARY | 2025-03-28 11:47 | XMS_ITS | Encounter Summary ---
Author Organization [facility] and [facility] Address [address] [place] [address] Care Team Providers Care Associate Civil Engineer Name Role Phone Caitlyn Bowie MD Primary Care Provider +1- [phone] Encounter Details Date Type Department Care Team (Late st Contact Info) Description 03/24/2021 Scanned Document INTERFACE DEFAULT [address] [place] [address] System, Provider Not In Social History Tobacco [...] Center at [facility] 240 [facility] Building [address] [place] [address] Ronald Mills MD [address] [place] [address] [address] [place] [address] documented as of this encounter Visit Diagnoses Not on filedocumented in this encounter Additional Health Concerns Infection Onset Date Last Indicated Resolved Time COVID-19 03/05/2022 03/05/2022 03/15/2022 7:18 PM EDT Assessment Noted Time PHQ-9 Depression Total Score: 2 11/07/19 19 2:06 PM EDT documented as of this encounter Care Teams Associate Civil Engineer Relationship Specialty Start Date End Date Caitlyn Bowie MD [address] [address] PCP - General Internal Medicine 05/06/21 documented as of this encounter
--- OUTSIDE RECORDS SUMMARY | 2025-03-28 11:47 | XMS_ITS | Encounter Summary ---
Author Organization [facility] Address [address] [place] [address] Care Team Providers Care Electrical Parts Reconditioner Name Role Phone Cristofer Hope MD Primary Care Provider Victorino Read MD Primary Care Provider UnavailSharon Kimbrough Primary Care Provider Unava ilBrennan Newman MD Primary Care Provider Unavailab Hayden Montes MD Unavailable [phone] Pallavi Flood NP Unavailable [phone]- [phone] Caitlyn Bowie MD Primary Care Provider Unava chhaya Encounter Details Date Type Department Care Team Description 06/15/2017 Transfer Records Medical Records [address] [place] [address] Abstract, Provider Social History Tobacco Use Types [...] on filedocumented in this encounter Care Teams Electrical Parts Reconditioner Relationship Specialty Start Date End Date Cristofer Hope MD PCP - General Internal Medicine 05/16/17 12/20/17 Victorino Martin MD PCP - General Internal Medicine 12/21/17 08/01/18 Sharon Vides PCP - General Internal Medicine 08/02/18 05/26/20 Brennan Burnett MD PCP - General Internal Medicine 05/27/20 12/07/21 Caitlyn Bowie MD [address] [place] [address] PCP - General Internal Medicine 12/08/21 Hayden Shah MD [address] [place], [place] [id number] Specialist Cardiovascular Disease 09/01/20 Pallavi Flood NP [address] [place], [place] [address] Cardiology 09/01/20 documented as of this encounter
--- OUTSIDE RECORDS SUMMARY | 2025-03-28 11:47 | XMS_ITS | Encounter Summary ---
Author Organization [facility] Address [address] [place] [address] Care Team Providers Care Manager Of Selection And Assessment Name Role Phone Victorino Martin MD Primary Care Provider Sharon Odonnell Primary Care Provider Brennan Castro MD Primary Care Provider UnavailHayden Fernandez MD Unavailable [phone] Pallavi Flood NP Unavailable [phone]- [phone] Caitlyn Bowie MD Primary Care Provider Johnathon shaver Encounter Details Date Type Department Care Team Description 01/22/2018 Floor Manager Report Medical Records [address] [place] [address] Abstract, Provider Social History Tobacco Use Types [...] in this encounter Care Teams Manager Of Selection And Assessment Relationship Specialty Start Date End Date Victorino Martin MD PCP - General Internal Medicine 12/21/17 08/01/18 Sharon Vides PCP - General Internal Medicine 08/02/18 05/26/20 Brennan Burnett MD PCP - General Internal Medicine 05/27/20 12/07/21 Caitlyn Bowie MD [address] [place] [address] PCP - General Internal Medicine 12/08/21 Hayden Shah MD [address] [place] [id number] Specialist Cardiovascular Disease 09/01/20 Pallavi Flood NP [address] [place], [place] [address] Cardiology 09/01/20 documented as of this encounter
--- OUTSIDE RECORDS SUMMARY | 2025-03-28 11:47 | XMS_ITS | Encounter Summary ---
Author Organization [facility] Address [address] [place] [address] Care Team Providers Care Tapping Machine Operator Automatic Name Role Phone Caitlyn Bowie MD Primary Care Provider +1- [phone] Encounter Details Date Type Department Care Team (Late st Contact Info) Description 08/21/2017 Scanned Document [facility] Health Information Management [address] [place] [address] External, Provider Social History Tobacco Use Types [...] at [facility] 240 [facility] Building [address] [place], [place] [address] Ronald iMlls MD [address] [place] [address] [address] [place] [address] documented as of this encounter [...] documented as of this encounter Care Teams Tapping Machine Operator Automatic Relationship Specialty Start Date End Date Caitlyn Bowie MD 3400 [facility] 1 [place] [address] PCP - General Internal Medicine 05/06/21 Henry Kelly MD Pulmonary Department 175 [facility], [address] [place] [address] Physician Pulmonary Disease 09/06/17 06/22/20 documented as of this encounter
--- OUTSIDE RECORDS SUMMARY | 2025-03-28 11:47 | XMS_ITS | Encounter Summary ---
Author Organization [facility] and [facility] Address [address] [place] [address] Care Team Providers Care Industrial Chemicals Supervisor Name Role Phone Caitlyn Bowie MD Primary Care Provider +1- [phone] Encounter Details Date Type Department Care Team (Late st Contact Info) Description 04/16/2021 Scanned Document INTERFACE DEFAULT [address] [place] [address] System, Provider Not In Social History Tobacco [...] [facility] 240 [facility] Building [address] [place], [place] [address] Ronald Mills MD [address] [place] [address] [address] [place] [address] documented as of this encounter [...] as of this encounter Care Teams Industrial Chemicals Supervisor Relationship Specialty Start Date End Date Caitlyn Bowie MD [facility] [address] [address] PCP - General Internal Medicine 05/06/21 documented as of this encounter
--- OUTSIDE RECORDS SUMMARY | 2025-03-28 11:48 | XMS_ITS | Encounter Summary ---
Author Organization [facility] and [facility] Address [address] [place] [address] Care Team Providers Care Costume Shop Manager Name Role Phone Caitlyn Bowie MD Primary Care Provider +1- [phone] Encounter Details Date Type Department Care Team (Late st Contact Info) Description 03/16/2021 Scanned Document INTERFACE DEFAULT [address] [place] [address] System, Provider Not In Social History Tobacco [...] Urgent Care 240 [facility] [address] [place] [address] Ronald Mills MD [address] [place] [address] [address] [place] [address] documented as of this encounter Visit Diagnoses Not on filedocumented in this encounter Additional Health Concerns Infection Onset Date Last Indicated Resolved Time COVID-19 03/05/2022 03/05/2022 03/15/2022 7:18 PM EDT Assessment Noted Time PHQ-9 Depression Total Score: 2 11/07/19 19 2:06 PM EDT documented as of this encounter Care Teams Costume Shop Manager Relationship Specialty Start Date End Date Caitlyn Bowie MD [address] [address] PCP - General Internal Medicine 05/06/21 documented as of this encounter
--- OUTSIDE RECORDS SUMMARY | 2025-03-28 11:48 | XMS_ITS | Encounter Summary ---
Author Organization [facility] and [facility] Address [address] [place] [place] [address] Care Team Providers Care Production Team Member Name Role Phone Caitlyn Bowie MD Primary Care Provider +1- [phone] Encounter Details Date Type Department Care Team (Late st Contact Info) Description 02/15/2021 Scanned Document INTERFACE DEFAULT [address] [place] [address] System, Provider Not In Social History Tobacco [...] Cancer Center at [facility] 240 [facility] Building [address] [place] [address] Ronald Mills MD [address] [place] [address] [address] [place] [address] documented as of this encounter Visit Diagnoses Not on filedocumented in this encounter Additional Health Concerns Infection Onset Date Last Indicated Resolved Time COVID-19 03/05/2022 03/05/2022 03/15/2022 7:18 PM EDT Assessment Noted Time PHQ-9 Depression Total Score: 2 11/07/19 19 2:06 PM EDT documented as of this encounter Care Teams Production Team Member Relationship Specialty Start Date End Date Caitlyn Bowie MD [address] [address] PCP - General Internal Medicine 05/06/21 documented as of this encounter
--- OUTSIDE RECORDS SUMMARY | 2025-03-28 11:48 | XMS_ITS | Encounter Summary ---
Author Organization [facility] and [facility] Address [address] [place] [address] Care Team Providers Care Claim Examiner Name Role Phone Caitlyn Bowie MD Primary Care Provider +1- [phone] Encounter Details Date Type Department Care Team (Late st Contact Info) Description 01/26/2018 Scanned Document [facility] Information Management [address] [place] [address] External, Provider Social History Tobacco Use Types [...] [facility] 240 [facility] Building [address] [place], [place] [id number] Ronald Mills MD 240 [facility] [address] [place] [address] documented as of this encounter Visit Diagnoses Not on filedocumented in this encounter Additional Health Concerns Infection Onset Date Last Indicated Resolved Time COVID-19 03/05/2022 03/05/2022 03/15/2022 7:18 PM EDT documented as of this encounter Care Teams Claim Examiner Relationship Specialty Start Date End Date Caitlyn Bowie MD 3400 [facility] 1 [place] [address] PCP - General Internal Medicine 05/06/21 Henry Kelly MD Pulmonary Department 175 [facility], [address] [place] [address] Physician Pulmonary Disease 09/06/17 06/22/20 documented as of this encounter
--- OUTSIDE RECORDS SUMMARY | 2025-03-28 11:48 | XMS_ITS | Encounter Summary ---
Author Organization [facility] and [facility] Address [address] [place] [address] Care Team Providers Care Ibm Bpm Architect Name Role Phone Caitlyn Bowie MD Primary Care Provider +1- [phone] Encounter Details Date Type Department Care Team (Late st Contact Info) Description 03/14/2021 Scanned Document INTERFACE DEFAULT [address] [place] [address] System, Provider Not In Social History Tobacco [...] Center at [facility] 240 [facility] Building [address] [place], [place] [address] Ronald Mills MD [address] [place] [address] [address] [place] [address] documented as of this encounter [...] documented as of this encounter Care Teams Ibm Bpm Architect Relationship Specialty Start Date End Date Caitlyn Bowie MD [address] [address] PCP - General Internal Medicine 05/06/21 documented as of this encounter
--- OUTSIDE RECORDS SUMMARY | 2025-03-28 11:48 | XMS_ITS | Encounter Summary ---
Author Organization [facility] and [facility] Address [address] [place] [address] Care Team Providers Care Puppy Trainer Name Role Phone Caitlyn Bowie MD Primary Care Provider +1- [phone] Encounter Details Date Type Department Care Team (Late st Contact Info) Description 02/25/2021 Scanned Document INTERFACE DEFAULT [address] [place] [address] System, Provider Not In Social History Tobacco [...] [facility] 240 [facility] Building [address] [place] [address] Ronald Mills MD [address] [place] [address] [address] [place] [address] documented as of this encounter [...] End Date Caitlyn Bowie MD [address] [address] PCP - General Internal Medicine 05/06/21 documented as of this encounter
--- OUTSIDE RECORDS SUMMARY | 2025-03-28 11:48 | XMS_ITS | Encounter Summary ---
Author Organization [facility] and [facility] Address [address] [place] [address] Care Team Providers Care Marketing Automation Analyst Name Role Phone Caitlyn Bowie MD Primary Care Provider +1- [phone] Encounter Details Date Type Department Care Team (Late st Contact Info) Description 02/07/2021 Scanned Document INTERFACE DEFAULT [address] [place] [address] System, Provider Not In Social History Tobacco [...] [facility] Building [address] [place], [place] [id number] Ronald Mills MD [address] [place] [address] [address] [place] [address] documented as of this encounter [...] as of this encounter Care Teams Marketing Automation Analyst Relationship Specialty Start Date End Date Caitlyn Bowie MD [address] [address] PCP - General Internal Medicine 05/06/21 documented as of this encounter
--- OUTSIDE RECORDS SUMMARY | 2025-03-28 11:48 | XMS_ITS | Encounter Summary ---
Author Organization [facility] Address [address] [place] [address] Care Team Providers Care Medicaid Nurse Name Role Phone Caitlyn Bowie MD Primary Care Provider +1- [phone] Encounter Details Date Type Department Care Team (Late st Contact Info) Description 03/22/2021 Scanned Document INTERFACE DEFAULT [address] [place] [address] System, Provider Not In Social History Tobacco [...] at [facility] 240 [facility] Building [address] [place] [address] Ronald Mills MD [address] [place] [address] [address] [place] [address] documented as of this encounter Visit Diagnoses Not on filedocumented in this encounter Additional Health Concerns Infection Onset Date Last Indicated Resolved Time COVID-19 03/05/2022 03/05/2022 03/15/2022 7:18 PM EDT Assessment Noted Time PHQ-9 Depression Total Score: 2 11/07/19 19 2:06 PM EDT documented as of this encounter Care Teams Medicaid Nurse Relationship Specialty Start Date End Date Caitlyn Bowie MD [address] [address] PCP - General Internal Medicine 05/06/21 documented as of this encounter
--- OUTSIDE RECORDS SUMMARY | 2025-03-28 11:48 | XMS_ITS | Encounter Summary ---
Author Organization [facility] and [facility] Address [address] [place] [address] Care Team Providers Care Advertising Copy Writer Name Role Phone Caitlyn Bowie MD Primary Care Provider +1- [phone] Encounter Details Date Type Department Care Team (Late st Contact Info) Description 01/13/2021 Scanned Document Cancer Center at [address] [address] Ronald Mills MD [address] [address] Social History Tobacco Use Types [...] PM EDT Telemedicine Cancer Center at [address] [place] [address] Ronald Mills MD [address] [address] documented as of this encounter [...] as of this encounter Care Teams Advertising Copy Writer Relationship Specialty Start Date End Date Caitlyn Bowie MD [address] [address] PCP - General Internal Medicine 05/06/21 documented as of this encounter
--- OUTSIDE RECORDS SUMMARY | 2025-03-28 11:48 | XMS_ITS | Encounter Summary ---
Author Organization [facility] and [facility] Address [address] [place] [address] Care Team Providers Care Business Office Director Name Role Phone Caitlyn Bowie MD Primary Care Provider +1- [phone] Encounter Details Date Type Department Care Team (Late Contact Info) Description 02/02/2021 Scanned Document [facility] Health Information Management [address] [place] [address] External, Provider Social History Tobacco Use Types [...] [facility] 240 [facility] Building [address] [place], [place] [address] Ronald Mills MD [address] [place] [address] [address] [place] [address] documented as of this encounter Visit Diagnoses Not on filedocumented in this encounter Additional Health Concerns Infection Onset Date Last Indicated Resolved Time COVID-19 03/05/2022 03/05/2022 03/15/2022 7:18 PM EDT Assessment Noted Time PHQ-9 Depression Total Score: 2 11/07/19 19 2:06 PM EDT documented as of this encounter Care Teams Business Office Director Relationship Specialty Start Date End Date Caitlyn Bowie MD [address] [address] PCP - General Internal Medicine 05/06/21 documented as of this encounter
--- OUTSIDE RECORDS SUMMARY | 2025-03-28 11:48 | XMS_ITS | Encounter Summary ---
Author Organization [facility] Address [address] [place] [address] Care Team Providers Care Assembler Sandal Parts Name Role Phone Brennan Burnett MD Primary Care Provider Unavailab Hayden Montes MD Unavailable [phone] Pallavi Flood NP Unavailable [phone]- [phone] Caitlyn Bowie MD Primary Care Provider Unava ilable Encounter Details Date Type Department Care Team Description 09/28/2020 SCAN Medical Records [address] [place] [address] Abstract, Provider Social History Tobacco Use Types [...] on filedocumented in this encounter Care Teams Assembler Sandal Parts Relationship Specialty Start Date End Date Brennan Burnett MD PCP - General Internal Medicine 05/27/20 12/07/21 Caitlyn Bowie MD [address] [place] [address] PCP - General Internal Medicine 12/08/21 Hayden Shah MD [address] [place] [address] Specialist Cardiovascular Disease 09/01/20 Pallavi Flood NP [address] [place] [address] Cardiology 09/01/20 documented as of this encounter
--- OUTSIDE RECORDS SUMMARY | 2025-03-28 11:48 | XMS_ITS | Encounter Summary ---
Author Organization [facility] and [facility] Address [address] [place] [address] Care Team Providers Care Dragline Engineer Name Role Phone Caitlyn Bowie MD Primary Care Provider +1- [phone] Encounter Details Date Type Department Care Team (Late st Contact Info) Description 01/07/2014 Documentation [facility] [address] [place] [address] Shilpi Ibarra [address] [place] [address] Social History Tobacco Use Types Packs/Day Years [...] from the original note were not included. [facility] Progress Note This is a 70 [facility] Building [address] [place], [place] [address] Ronald Mills MD [address] [place] [address] documented as of this encounter Visit Diagnoses Not on filedocumented in this encounter Additional Health Concerns Infection Onset Date Last Indicated Resolved Time COVID-19 03/05/2022 03/05/2022 03/15/2022 7:18 PM EDT documented as of this encounter Care Teams Dragline Engineer Relationship Specialty Start Date End Date Caitlyn Bowie MD [address] [place] [address] PCP - General Internal Medicine 05/06/21 Henry Kelly MD Pulmonary Department 175 [facility], [address] [place] [address] Physician Pulmonary Disease 09/06/17 06/22/20 documented as of this encounter
--- OUTSIDE RECORDS SUMMARY | 2025-03-28 11:48 | XMS_ITS | Encounter Summary ---
Author Organization [facility] and [facility] Address [address] [place] [address] Care Team Providers Care Plater Helper Name Role Phone Caitlyn Bowie MD Primary Care Provider +1- [phone] Encounter Details Date Type Department Care Team (Late st Contact Info) Description 09/18/2020 Scanned Document INTERFACE DEFAULT [address] [place] [address] System, Provider Not In Social History Tobacco [...] [facility] 240 [facility] Building [address] [place] [address] Ronald Mills MD [address] [place] [address] [address] [place] [address] documented as of this encounter Visit Diagnoses Not on filedocumented in this encounter Additional Health Concerns Infection Onset Date Last Indicated Resolved Time COVID-19 03/05/2022 03/05/2022 03/15/2022 7:18 PM EDT Assessment Noted Time PHQ-9 Depression Total Score: 2 11/07/19 19 2:06 PM EDT documented as of this encounter Care Teams Plater Helper Relationship Specialty Start Date End Date Caitlyn Bowie MD [address] [address] PCP - General Internal Medicine 05/06/21 documented as of this encounter
--- OUTSIDE RECORDS SUMMARY | 2025-03-28 11:48 | XMS_ITS | Encounter Summary ---
Author Organization [facility] and [facility] Address [address] [place] [address] Care Team Providers Care Commercial Collections Specialist Name Role Phone Caitlyn Bowie MD Primary Care Provider +1- [phone] Encounter Details Date Type Department Care Team (Late st Contact Info) Description 11/29/2017 Scanned Document [facility] Health Information Management [address] [place] [address] External, Provider Social History Tobacco Use Types [...] [facility] [address] [facility] Building [address] [place], [place] [address] Ronald Mills MD [address] [place] [address] [address] [place] [address] documented as of this encounter [...] as of this encounter Care Teams Commercial Collections Specialist Relationship Specialty Start Date End Date Caitlyn Bowie MD [address] [facility] 1 [place] [address] PCP - General Internal Medicine 05/06/21 Henry Kelly MD Pulmonary Department 175 [facility], [address] [place] [address] Physician Pulmonary Disease 09/06/17 06/22/20 documented as of this encounter
--- OUTSIDE RECORDS SUMMARY | 2025-03-28 11:48 | XMS_ITS | Encounter Summary ---
Author Organization [facility] and [facility] Address [address] [place] [address] Care Team Providers Care Sales Clerk Name Role Phone Caitlyn Bowie MD Primary Care Provider +1- [phone] Encounter Details Date Type Department Care Team (Late st Contact Info) Description 08/23/2017 Scanned Document [facility] Health Information Management [address] [place] [address] External, Provider Social History Tobacco Use Types [...] [facility] 240 [facility] Building [address] [place], [place] [address] Ronald Mills MD [address] [place] [address] [address] [place] [address] documented as of [...] as of this encounter Care Teams Sales Clerk Relationship Specialty Start Date End Date Caitlyn Bowie MD 3400 [facility] 1 [place] [address] PCP - General Internal Medicine 05/06/21 Henry Kelly MD Pulmonary Department 175 [facility], [address] [place] [address] Physician Pulmonary Disease 09/06/17 06/22/20 documented as of this encounter
--- OUTSIDE RECORDS SUMMARY | 2025-03-28 11:48 | XMS_ITS | Encounter Summary ---
Author Organization [facility] and [facility] Address [address] [place] [address] Care Team Providers Care Mechanic'S Assistant Name Role Phone Caitlyn Bowie MD Primary Care Provider +1- [phone] Encounter Details Date Type Department Care Team (Late st Contact Info) Description 09/01/2017 Scanned Document [facility] Health Information Management [address] [place] [address] External, Provider Social History Tobacco Use Types [...] [facility] 240 [facility] Building [address] [place], [place] [id number] Ronald Mills MD [address] [place] [address] [address] [place] [address] documented as of this encounter [...] documented as of this encounter Care Teams Mechanic'S Assistant Relationship Specialty Start Date End Date Caitlyn Bowie MD [facility] 1 [place] [address] PCP - General Internal Medicine 05/06/21 Henry Kelly MD Pulmonary Department 175 [facility], [address] [place] [address] Physician Pulmonary Disease 09/06/17 06/22/20 documented as of this encounter
--- OUTSIDE RECORDS SUMMARY | 2025-03-28 11:48 | XMS_ITS | Encounter Summary ---
Author Organization [facility] and [facility] Address [address] [place] [address] Care Team Providers Care Fountain Vending Mechanic Name Role Phone Caitlyn Bowie MD Primary Care Provider +1- [phone] Encounter Details Date Type Department Care Team (Late st Contact Info) Description 01/26/2018 Scanned Document [facility] Health Information Management [address] [place] [address] External, Provider Social History Tobacco Use Types [...] at [facility] [address] [facility] Building [address] [place], [place] [address] Ronald Mills MD [address] [place] [address] [address] [place] [address] documented as of this [...] as of this encounter Care Teams Fountain Vending Mechanic Relationship Specialty Start Date End Date Caitlyn Bowie MD 3400 [facility] 1 [place] [address] PCP - General Internal Medicine 05/06/21 Henry Kelly MD Pulmonary Department 175 [facility], [address] [place] [address] Physician Pulmonary Disease 09/06/17 06/22/20 documented as of this encounter
--- OUTSIDE RECORDS SUMMARY | 2025-03-28 11:48 | XMS_ITS | Clinical Summary ---
Author Organization [facility] Address [address] [place] [address] Care Team Providers Care Chief Psychologist Name Role Phone Hayden Shah MD Unavailable [phone] Pallavi Flood NP Unavailable [phone]- [phone] Caitlyn Bowie MD Primary Care Provider Unava [...] 20 mg as needed by her previous mining consultant which she has taken sporadically. I have asked her to take this daily to see if this improves her symptoms and she has a follow-up appointment with Dr. Shah on September 16 which she will keep. We also had a long conversation regarding the fact that she is seeing 3 different mining consultant for the same problems. We informed her [...] continues to see Dr. Avalos or her mining consultant at [facility]. She verbalized understanding [...] Mx LLL resection, Chemo, RT, Cisplatin, Vinorelbine 2120-0271 Obstructive sleep apnea syndrome 017 Overview: CPAP [...] 77 12/30/2021 11:42 AM EDT Temperature 36.2 C (97.2 F) 09/21/2020 8:30 AM EDT Respiratory Rate 16 09/21/2020 8:30 AM EDT [...] ASSESSMENT 2008 Covid-19 Vaccine (2022-2 4 season) 2025 09/03/2020, 08/06/2020 INFLUENZA (#1) 2025 04/11/2018, 04/10, 04/18/2016 DTAP/TDAP/TD (3 - Td or Tdap) 02/27/2026 02/28/2016, 02/17/2016 PNEUMOCOCCAL VACCINE Completed 03/25/2016, 09/17/2015, 04/21/2014, Additional history exists Care Teams Chief Psychologist Relationship Specialty Start Date End Date Caitlyn Bowie MD [address] [place] [address] PCP - General Internal Medicine 12/08/21 Hayden Shah MD [address] [place] [address] Specialist Cardiovascular Disease 09/01/20 Pallavi Flood NP [address] [place] [id number] Cardiology 09/01/20
--- OUTSIDE RECORDS SUMMARY | 2025-03-28 11:48 | XMS_ITS | Encounter Summary ---
Author Organization [facility] Address [address] [place] [address] Phone Care Team Providers Care Urban Anthropologist Name Role Phone Caitlyn Bowie MD Primary Care Provider [phone]- [phone] Encounter Details Date Type Department Care Team (Late Contact Info) Description 12/12/2024 Documentation Only [facility] [address] [place] [address] Mairna Abdi [address] [place] [address] Social History Tobacco Use Types [...] Visit [facility] [address] [place] [address] Rubén Ashraf MD [address] [place] [address] [place] [address] documented as of this encounter Visit Diagnoses Not on filedocumented in this encounter Care Teams Urban Anthropologist Relationship Specialty Start Date End Date Caitlyn Bowie MD [address] [place], [place] PCP - General Internal Medicine 09/24/24 documented as of this encounter
--- OUTSIDE RECORDS SUMMARY | 2025-03-28 11:48 | XMS_ITS | Encounter Summary ---
Author Organization [facility] Address [address] [place] [address] Care Team Providers Care Verifier Name Role Phone Sharon Vides Primary Care Provider Unava ilable Brennan Burnett MD Primary Care Provider Unavailab Hayden Montes MD Unavailable [phone] Pallavi Flood NP Unavailable [phone]- [phone] Caitlyn Bowie MD Primary Care Provider Unava ilable Reason for Visit * Reason Onset Date Comments Ankle Pain 07/05/2019 le, foot pain Encounter Details Date Type Department Care Team Description 07/05/2019 Telephone General Surgery [address] [place] [address] Norma Mendoza MD [address] [place] [address] Ankle Pain (le, foot pain) Social History [...] on filedocumented in this encounter Care Teams Verifier Relationship Specialty Start Date End Date Sharon Vides PCP - General Internal Medicine 08/02/18 05/26/20 Brennan Burnett MD PCP - General Internal Medicine 05/27/20 12/07/21 Caitlyn Bowie MD [address] [place] [address] PCP - General Internal Medicine 12/08/21 Hayden Shah MD [address] [place] [address] Specialist Cardiovascular Disease 09/01/20 Pallavi Flood NP [address] [place] [address] Cardiology 09/01/20 documented as of this encounter
--- OUTSIDE RECORDS SUMMARY | 2025-03-28 11:48 | XMS_ITS | Encounter Summary ---
Author Organization [facility] and [facility] Address [address] [place] [address] Care Team Providers Care Oak Tanner Name Role Phone Caitlyn Bowie MD Primary Care Provider [phone]- [phone] Encounter Details Date Type Department Care Team (Late st Contact Info) Description 02/24/2021 Scanned Document INTERFACE DEFAULT [address] [place] [address] System, Provider Not In Social History Tobacco [...] [facility] Building [address] [place] [address] Ronald Mills MD [address] [place] [address] [address] [place] [address] documented as of this encounter [...] documented as of this encounter Care Teams Oak Tanner Relationship Specialty Start Date End Date Caitlyn Bowie MD [address] [address] PCP - General Internal Medicine 05/06/21 documented as of this encounter
--- OUTSIDE RECORDS SUMMARY | 2025-03-28 11:48 | XMS_ITS | Encounter Summary ---
Author Organization [facility] and [facility] Address [address] [place] [address] Care Team Providers Care Hydrostatic Tubing Tester Name Role Phone Caitlyn Bowie MD Primary Care Provider +1- [phone] Encounter Details Date Type Department Care Team (Late st Contact Info) Description 03/11/2021 Scanned Document INTERFACE DEFAULT [address] [place] [address] System, Provider Not In Social History Tobacco [...] [facility] 240 [facility] Building [address] [place], [place] [phone] Ronald Mills MD [address] [place] [address] [address] [place] [address] documented as of this encounter [...] documented as of this encounter Care Teams Hydrostatic Tubing Tester Relationship Specialty Start Date End Date Caitlyn Bowie MD [facility] [address] [address] PCP - General Internal Medicine 05/06/21 documented as of this encounter
--- OUTSIDE RECORDS SUMMARY | 2025-03-28 11:48 | XMS_ITS | Encounter Summary ---
Author Organization [facility] and [facility] Address [address] [place] [address] Care Team Providers Care Transmitter Engineer In Charge Name Role Phone Caitlyn Bowie MD Primary Care Provider +1- [phone] Encounter Details Date Type Department Care Team (Late Contact Info) Description 02/03/2021 Scanned Document [facility] Health Information Management [address] [place] [address] External, Provider Social History Tobacco Use Types [...] [facility] Building [address] [place], [place] [id number] Ronald Mills MD [address] [place] [address] [address] [place] [address] documented as of this encounter [...] as of this encounter Care Teams Transmitter Engineer In Charge Relationship Specialty Start Date End Date Caitlyn Bowie MD [address] [place] [address] [address] PCP - General Internal Medicine 05/06/21 documented as of this encounter
--- OUTSIDE RECORDS SUMMARY | 2025-03-28 11:48 | XMS_ITS | Encounter Summary ---
Author Organization [facility] Address [address] [place] [address] Care Team Providers Care Software Sales Executive Name Role Phone Sharon Vides Primary Care Provider Brennan Castro MD Primary Care Provider Unavailab Hayden Montes MD Unavailable [phone] Pallavi Flood NP Unavailable [phone] Caitlyn Bowie MD Primary Care Provider Johnathon shaver Encounter Details Date Type Department Care Team Description 07/15/2019 Release of Information Medical Records [address] [place] [address] Abstract, Provider Social History Tobacco Use Types [...] on filedocumented in this encounter Care Teams Software Sales Executive Relationship Specialty Start Date End Date Sharon Vides PCP - General Internal Medicine 08/02/18 05/26/20 Brennan Burnett MD PCP - General Internal Medicine 05/27/20 12/07/21 Caitlyn Bowie MD [address] [place] [address] PCP - General Internal Medicine 12/08/21 Hayden Shah MD [address] [place] [address] Specialist Cardiovascular Disease 09/01/20 Pallavi Flood NP [address] [place] [address] Cardiology 09/01/20 documented as of this encounter
--- OUTSIDE RECORDS SUMMARY | 2025-03-28 11:48 | XMS_ITS | Encounter Summary ---
Author Organization [facility] Address [address] [place] [address] Phone Care Team Providers Care Top Lift Trimmer Name Role Phone Caitlyn Bowie MD Primary Care Provider [phone]- [phone] Encounter Details Date Type Department Care Team (Late Contact Info) Description 12/12/2024 Documentation Only [facility] [address] [place] [address] Marina Abdi [address] [place] [address] Social History Tobacco Use Types [...] Visit [facility] [address] [place] [address] Rubén Ashraf MD [address] [place] [address] [place] [address] documented as of this encounter Visit Diagnoses Not on filedocumented in this encounter Care Teams Top Lift Trimmer Relationship Specialty Start Date End Date Caitlyn Bowie MD [address] [place], [place] PCP - General Internal Medicine 09/24/24 documented as of this encounter
--- OUTSIDE RECORDS SUMMARY | 2025-03-28 11:48 | XMS_ITS | Encounter Summary ---
Author Organization [facility] Address [address] [place] [address] Care Team Providers Care Tax Accounting Assistant Name Role Phone Brennan Burnett MD Primary Care Provider Unavailab Hayden Montes MD Unavailable [phone] Pallavi Flood NP Unavailable [phone]- [phone] Caitlyn Bowie MD Primary Care Provider Unava ilable Encounter Details Date Type Department Care Team Description 09/30/2020 [facility] Medical Records [address] [place] [address] Social History Tobacco Use Types Packs/Day Years [...] on filedocumented in this encounter Care Teams Tax Accounting Assistant Relationship Specialty Start Date End Date Brennan Burnett MD PCP - General Internal Medicine 05/27/20 12/07/21 Caitlyn Bowie MD [address] [place] [address] PCP - General Internal Medicine 12/08/21 Hayden Shah MD [address] [place] [address] Specialist Cardiovascular Disease 09/01/20 Pallavi Flood NP [address] [place] [address] Cardiology 09/01/20 documented as of this encounter
--- OUTSIDE RECORDS SUMMARY | 2025-03-28 11:48 | XMS_ITS | Encounter Summary ---
Author Organization [facility] and [facility] Address [address] [place] [address] Care Team Providers Care Professor Of Business Name Role Phone Caitlyn Bowie MD Primary Care Provider +1- [phone] Encounter Details Date Type Department Care Team (Late st Contact Info) Description 02/02/2021 Scanned Document INTERFACE DEFAULT [address] [place] [address] System, Provider Not In Social History Tobacco [...] at [facility] 240 [facility] Building [address] [place] [address] Ronald Mills MD [address] [place] [address] [address] [place] [address] documented as of this encounter [...] this encounter Care Teams Professor Of Business Relationship Specialty Start Date End Date Caitlyn Bowie MD [facility] [address] [address] PCP - General Internal Medicine 05/06/21 documented as of this encounter
--- OUTSIDE RECORDS SUMMARY | 2025-03-28 11:48 | XMS_ITS | Encounter Summary ---
Author Organization [facility] and [facility] Address [address] [place] [address] Care Team Providers Care Business Banking Sales Assistant Name Role Phone Caitlyn Bowie MD Primary Care Provider +1- [phone] Encounter Details Date Type Department Care Team (Late st Contact Info) Description 03/08/2021 Scanned Document INTERFACE DEFAULT [address] [place] [address] System, Provider Not In Social History Tobacco [...] [facility] Building A [address] [place], [place] [address] Ronald Mills MD [address] [place] [address] [address] [place] [address] documented as of this encounter [...] as of this encounter Care Teams Business Banking Sales Assistant Relationship Specialty Start Date End Date Caitlyn Bowie MD [facility] [address] [address] PCP - General Internal Medicine 05/06/21 documented as of this encounter
--- OUTSIDE RECORDS SUMMARY | 2025-03-28 11:48 | XMS_ITS | Encounter Summary ---
Author Organization [facility] and [facility] Address [address] [place] [address] Care Team Providers Care Awning Maker Name Role Phone Caitlyn Bowie MD Primary Care Provider +1- [phone] Encounter Details Date Type Department Care Team (Late st Contact Info) Description 02/08/2021 Scanned Document INTERFACE DEFAULT [address] [place] [address] System, Provider Not In Social History Tobacco [...] [facility] [address] [facility] [address] [place] [address] Ronald Mills MD [address] [place] [address] [address] [place] [address] documented as of this encounter Visit Diagnoses Not on filedocumented in this encounter Additional Health Concerns Infection Onset Date Last Indicated Resolved Time COVID-19 03/05/2022 03/05/2022 03/15/2022 7:18 PM EDT Assessment Noted Time PHQ-9 Depression Total Score: 2 11/07/19 19 2:06 PM EDT documented as of this encounter Care Teams Awning Maker Relationship Specialty Start Date End Date Caitlyn Bowie MD [address] [address] PCP - General Internal Medicine 05/06/21 documented as of this encounter
--- OUTSIDE RECORDS SUMMARY | 2025-03-28 11:48 | XMS_ITS | Encounter Summary ---
Author Organization [facility] and [facility] Address [address] [place] [address] Care Team Providers Care Security Nurse Name Role Phone Caitlyn Bowie MD Primary Care Provider +1- [phone] Encounter Details Date Type Department Care Team (Late st Contact Info) Description 02/03/2021 Scanned Document INTERFACE DEFAULT [address] [place] [address] System, Provider Not In Social History Tobacco [...] [facility] 240 [facility] Building [address] [place], [place] [phone] Ronald Mills MD [address] [place] [address] [address] [place] [address] documented as of this encounter [...] as of this encounter Care Teams Security Nurse Relationship Specialty Start Date End Date Caitlyn Bowie MD [address] [address] PCP - General Internal Medicine 05/06/21 documented as of this encounter
--- OUTSIDE RECORDS SUMMARY | 2025-03-28 11:48 | XMS_ITS | Encounter Summary ---
Author Organization [facility] and [facility] Address [address] [place] [address] Care Team Providers Care Radiation / Chemistry Technician Name Role Phone Caitlyn Bowie MD Primary Care Provider +1- [phone] Encounter Details Date Type Department Care Team (Late st Contact Info) Description 03/15/2021 Scanned Document INTERFACE DEFAULT [address] [place] [address] System, Provider Not In Social History Tobacco [...] [facility] 240 [facility] Building [address] [place], [place] [phone] Ronald Mills MD [address] [place] [address] [address] [place] [address] documented as of this encounter [...] documented as of this encounter Care Teams Radiation / Chemistry Technician Relationship Specialty Start Date End Date Caitlyn Bowie MD [facility] [address] [address] PCP - General Internal Medicine 05/06/21 documented as of this encounter
--- OUTSIDE RECORDS SUMMARY | 2025-03-28 11:48 | XMS_ITS | Encounter Summary ---
Author Organization [facility] and [facility] Address [address] [place] [address] Care Team Providers Care Handbag Parts Cutter Name Role Phone Caitlyn Bowie MD Primary Care Provider +1- [phone] Encounter Details Date Type Department Care Team (Late st Contact Info) Description 03/01/2021 Scanned Document INTERFACE DEFAULT [address] [place] [address] System, Provider Not In Social History Tobacco [...] [facility] [address] [facility] Building [address] [place] [address] Ronald Mills MD [address] [place] [address] [address] [place] [address] documented as of this encounter [...] End Date Caitlyn Bowie MD [address] [address] PCP - General Internal Medicine 05/06/21 documented as of this encounter
--- OUTSIDE RECORDS SUMMARY | 2025-03-28 11:48 | XMS_ITS | Encounter Summary ---
Author Organization [facility] and [facility] Address [address] [place] [address] Care Team Providers Care [place]ument Erector Name Role Phone Caitlyn Bowie MD Primary Care Provider +1- [phone] Encounter Details Date Type Department Care Team (Late st Contact Info) Description 02/28/2021 Scanned Document INTERFACE DEFAULT [address] [place] [address] System, Provider Not In Social History Tobacco [...] [facility] 240 [facility] Building [address] [place] [address] Ronald Mills MD [address] [place] [address] [address] [place] [address] documented as of this [...] as of this encounter Care Teams Monument Erector Relationship Specialty Start Date End Date Caitlyn Bowie MD [address] [address] PCP - General Internal Medicine 05/06/21 documented as of this encounter
--- OUTSIDE RECORDS SUMMARY | 2025-03-28 11:48 | XMS_ITS | Encounter Summary ---
Author Organization [facility] and [facility] Address [address] [place] [address] Care Team Providers Care Garnisher Name Role Phone Caitlyn Bowie MD Primary Care Provider +1- [phone] Encounter Details Date Type Department Care Team (Late st Contact Info) Description 01/27/2021 Scanned Document Cancer Center at [address] [address] External, Provider Social History Tobacco Use Types [...] [facility] 240 [facility] Building [address] [place], [place] [phone] Ronald Mills MD [address] [place] [address] [address] [place] [address] documented as of this encounter [...] documented as of this encounter Care Teams Garnisher Relationship Specialty Start Date End Date Caitlyn Bowie MD [address] [address] PCP - General Internal Medicine 05/06/21 documented as of this encounter
--- OUTSIDE RECORDS SUMMARY | 2025-03-28 11:48 | XMS_ITS | Encounter Summary ---
Author Organization [facility] Address [address] [place] [address] Care Team Providers Care Belt Measurer Name Role Phone Sharon Vides Primary Care Provider Unava ilable Brennan Burnett MD Primary Care Provider Unavailab Hayden Montes MD Unavailable [phone] Pallavi Flood NP Unavailable +1- [phone] Caitlyn Bowie MD Primary Care Provider Unava ilable Reason for Visit * Reason Onset Date Comments Provider Call Back 04/26/2019 Encounter Details Date Type Department Care Team Description 04/26/2019 Telephone Plastic Surgery [facility] [address] [facility] [address] [place] [address] Landen Aaron DO Provider Call [...] . Called to get in with a field cashier and stated needs to see surgeon first . documented in this encounter Plan of Treatment Not on file documented as of this encounter Visit Diagnoses Not on filedocumented in this encounter Care Teams Belt Measurer Relationship Specialty Start Date End Date Sharon Vides PCP - General Internal Medicine 08/02/18 05/26/20 Brennan Burnett MD PCP - General Internal Medicine 05/27/20 12/07/21 Caitlyn Bowie MD [address] [place] [address] PCP - General Internal Medicine 12/08/21 Hayden Shah MD [address] [place] [address] Specialist Cardiovascular Disease 09/01/20 Pallavi Flood NP [address] [place] [address] Cardiology 09/01/20 documented as of this encounter
--- OUTSIDE RECORDS SUMMARY | 2025-03-28 11:48 | XMS_ITS | Encounter Summary ---
Author Organization [facility] and [facility] Address [address] [place] [address] Care Team Providers Care Campus Recruiting Internship Name Role Phone Caitlyn Bowie MD Primary Care Provider +1- [phone] Encounter Details Date Type Department Care Team (Late st Contact Info) Description 10/07/2013 Scanned Document Thoracic Oncology Program at [address] [address] Suzy Kong MD [address] [place] [address] Social History Tobacco Use Types Packs/Day [...] [facility] 240 [facility] Building [address] [place], [place] [address] Ronald Mills MD 240 [facility] [address] [place] [address] documented as of this encounter Visit Diagnoses Not on filedocumented in this encounter Additional Health Concerns Infection Onset Date Last Indicated Resolved Time COVID-19 03/05/2022 03/05/2022 03/15/2022 7:18 PM EDT documented as of this encounter Care Teams Campus Recruiting Internship Relationship Specialty Start Date End Date Caitlyn Bowie MD [address] [facility] [address] [place] [address] PCP - General Internal Medicine 05/06/21 Henry Kelly MD Pulmonary Department 175 [facility], [address] [place] [address] Physician Pulmonary Disease 09/06/17 06/22/20 documented as of this encounter
--- OUTSIDE RECORDS SUMMARY | 2025-03-28 11:48 | XMS_ITS | Encounter Summary ---
Author Organization [facility] and [facility] Address [address] [place] [address] Care Team Providers Care Pump Erector Helper Name Role Phone Caitlyn Bowie MD Primary Care Provider +1- [phone] Encounter Details Date Type Department Care Team (Late st Contact Info) Description 02/11/2021 Scanned Document INTERFACE DEFAULT [address] [place] [address] System, Provider Not In Social History Tobacco [...] [facility] [address] [facility] Building [address] [place] [address] Ronald Mills MD [address] [place] [address] [address] [place] [address] documented as of this [...] documented as of this encounter Care Teams Pump Erector Helper Relationship Specialty Start Date End Date Caitlyn Bowie MD [address] [address] PCP - General Internal Medicine 05/06/21 documented as of this encounter
--- OUTSIDE RECORDS SUMMARY | 2025-03-28 11:48 | XMS_ITS | Encounter Summary ---
Author Organization [facility] Address [address] [place] [address] Care Team Providers Care Personal Injury Specialist Name Role Phone Brennan Burnett MD Primary Care Provider Unavailab Hayden Montes MD Unavailable [phone] Pallavi Flood NP Unavailable [phone]- [phone] Caitlyn Bowie MD Primary Care Provider Unava ilable Encounter Details Date Type Department Care Team Description 09/25/2020 Stationary Engineer Refrigeration Report Medical Records [address] [place] [address] Henry Kelly MD Social History Tobacco Use [...] on filedocumented in this encounter Care Teams Personal Injury Specialist Relationship Specialty Start Date End Date Brennan Burnett MD PCP - General Internal Medicine 05/27/20 12/07/21 Caitlyn Bow[address] MD [address] [place] [address] PCP - General Internal Medicine 12/08/21 Hayden Shah MD [address] [place] [address] Specialist Cardiovascular Disease 09/01/20 Pallavi Flood NP [address] [place] [address] Cardiology 09/01/20 documented as of this encounter
--- OUTSIDE RECORDS SUMMARY | 2025-03-28 11:48 | XMS_ITS | Encounter Summary ---
Author Organization [facility] and [facility] Address [address] [place] [address] Care Team Providers Care Visual Educator Name Role Phone Caitlyn Bowie MD Primary Care Provider +1- [phone] Encounter Details Date Type Department Care Team (Late st Contact Info) Description 01/13/2021 Scanned Document Cancer Center at [address] [address] External, Provider Social History Tobacco Use Types [...] [facility] at [facility] 240 [facility] Building [address] [place], [place] [phone] Ronald Mills MD [address] [place] [address] [address] [place] [address] documented as of [...] as of this encounter Care Teams Visual Educator Relationship Specialty Start Date End Date Caitlyn Bowie MD [address] [address] PCP - General Internal Medicine 05/06/21 documented as of this encounter
--- OUTSIDE RECORDS SUMMARY | 2025-03-28 11:48 | XMS_ITS | Encounter Summary ---
Author Organization [facility] Address [address] [place] [address] Care Team Providers Care Tax Compliance Agent Name Role Phone Caitlyn Bowie MD Primary Care Provider +1- [phone] Encounter Details Date Type Department Care Team (Late st Contact Info) Description 10/16/2013 Scanned Document [facility] [address] [place] [address], 2nd floor [facility], [address] [place], [place] [address] Suzy Kong MD [address] [place] [address] Social History Tobacco Use Types Packs/Day [...] Telemedicine Cancer Center at [address] [place] [address] Ronald Mills MD 240 [facility] A1 [place] [address] documented as of this encounter Visit Diagnoses Not on filedocumented in this encounter Additional Health Concerns Infection Onset Date Last Indicated Resolved Time COVID-19 03/05/2022 03/05/2022 03/15/2022 7:18 PM EDT documented as of this encounter Care Teams Tax Compliance Agent Relationship Specialty Start Date End Date Caitlyn Bowie MD 3400 [facility] Max 1 [place] [address] PCP - General Internal Medicine 05/06/21 Henry Kelly MD Pulmonary Department 175 [facility], [address] [place] [address] Physician Pulmonary Disease 09/06/17 06/22/20 documented as of this encounter
--- OUTSIDE RECORDS SUMMARY | 2025-03-28 11:49 | XMS_ITS | Encounter Summary ---
Author Organization [facility] and [facility] Address [address] [place] [address] Care Team Providers Care Terminal Supervisor Name Role Phone Caitlyn Bowie MD Primary Care Provider +1- [phone] Encounter Details Date Type Department Care Team (Late st Contact Info) Description 03/11/2015 Scanned Document [facility] Health Information Management [address] [place] [address] External, Provider Social History Tobacco Use Types [...] [facility] Center at [facility] 240 [facility] Building [address] [place], [place] [phone] Ronald Mills MD [address] [facility] Max [address] [place] [address] documented as of this encounter Procedures Procedure Name Priority Date/Time Associated Diagnosis Comments LAB SCAN Routine 03/11/2015 documented in this encounter Results * Lab Scan (03/11/2015) Blood specimen (specimen) us Provider External LAB BLOOD ORDERABLES Edited Re sult - Final [facility] documented in this encounter Visit Diagnoses Not on filedocumented in this encounter Additional Health Concerns Infection Onset Date Last Indicated Resolved Time COVID-19 03/05/2022 03/05/2022 03/15/2022 7:18 PM EDT documented as of this encounter Care Teams Terminal Supervisor Relationship Specialty Start Date End Date Caitlyn Bowie MD 3400 [facility] 1 [place] [address] PCP - General Internal Medicine 05/06/21 Henry Kelly MD Pulmonary Department 175 [facility], [address] [place] [address] Physician Pulmonary Disease 09/06/17 06/22/20 documented as of this encounter
--- OUTSIDE RECORDS SUMMARY | 2025-03-28 11:49 | XMS_ITS | Encounter Summary ---
Author Organization [facility] and [facility] Address [address] [place] [address] Care Team Providers Care Under Water Assistant Name Role Phone Caitlyn Bowie MD Primary Care Provider +1- [phone] Encounter Details Date Type Department Care Team (Late st Contact Info) Description 03/26/2015 Scanned Document Cardiovascular Medicine at [address] [place] [address] Norma Renee MD [address] [place] [phone] Social History Tobacco Use Types Packs/Day Years [...] PM EDT Telemedicine Cancer Center at [address] [place], [place] [phone] Ronald Mills MD [address] [place] [address] [address] [place] [address] documented as of this encounter Visit Diagnoses Not on filedocumented in this encounter Additional Health Concerns Infection Onset Date Last Indicated Resolved Time COVID-19 03/05/2022 03/05/2022 03/15/2022 7:18 PM EDT documented as of this encounter Care Teams Under Water Assistant Relationship Specialty Start Date End Date Caitlyn Bowie MD 3400 [facility] 1 [place] [address] PCP - General Internal Medicine 05/06/21 Henry Kelly MD Pulmonary Department 175 [facility], [address] [place] [address] Physician Pulmonary Disease 09/06/17 06/22/20 documented as of this encounter
--- OUTSIDE RECORDS SUMMARY | 2025-03-28 11:49 | XMS_ITS | Encounter Summary ---
Author Organization [facility] Address [address] [place] [address] Care Team Providers Care Overnight Babysitter Name Role Phone Caitlyn Bowie MD Primary Care Provider +1- [phone] Encounter Details Date Type Department Care Team (Late st Contact Info) Description 11/07/2014 Scanned Document [facility] Health Information Management [address] [place] [address] External, Provider Social History Tobacco Use Types [...] [facility] Center at [facility] 240 [facility] Building [address] [place], [place] [phone] Ronald Mills MD 240 [facility] A1 [place] [address] documented as of this encounter Visit Diagnoses Not on filedocumented in this encounter Additional Health Concerns Infection Onset Date Last Indicated Resolved Time COVID-19 03/05/2022 03/05/2022 03/15/2022 7:18 PM EDT documented as of this encounter Care Teams Overnight Babysitter Relationship Specialty Start Date End Date Caitlyn Bowie MD 3400 [facility] 1 [place] [address] PCP - General Internal Medicine 05/06/21 Henry Kelly MD Pulmonary Department 175 [facility], [address] [place] [address] Physician Pulmonary Disease 09/06/17 06/22/20 documented as of this encounter
--- OUTSIDE RECORDS SUMMARY | 2025-03-28 11:49 | XMS_ITS | Encounter Summary ---
Author Organization [facility] and [facility] Address [address] [place] [address] Care Team Providers Care Channeler Outsole Name Role Phone Caitlyn Bowie MD Primary Care Provider +1- [phone] Encounter Details Date Type Department Care Team (Late st Contact Info) Description 01/28/2018 Scanned Document [facility] Health Information Management [address] [place] [address] External, Provider Social History Tobacco Use Types [...] Center at [facility] 240 [facility] Building [address] [place], [place] [phone] Ronald Mills MD [address] [place] [address] [address] [place] [address] documented as of this encounter [...] documented as of this encounter Care Teams Channeler Outsole Relationship Specialty Start Date End Date Caitlyn Bowie MD [facility] 1 [place] [address] PCP - General Internal Medicine 05/06/21 Henry Kelly MD Pulmonary Department 175 [facility], [address] [place] [address] Physician Pulmonary Disease 09/06/17 06/22/20 documented as of this encounter
--- OUTSIDE RECORDS SUMMARY | 2025-03-28 11:49 | XMS_ITS | Encounter Summary ---
Author Organization [facility] and [facility] Address [address] [place] [address] Care Team Providers Care Human Resources Project Manager Name Role Phone Caitlyn Bowie MD Primary Care Provider +1- [phone] Encounter Details Date Type Department Care Team (Late st Contact Info) Description 01/26/2018 Scanned Document [facility] Health Information Management [address] [place] [address] External, Provider Social History Tobacco Use Types [...] Center at [facility] 240 [facility] Building [address] [place] [address] Ronald Mills MD [address] [facility] [address]1 [place] [address] documented as of this encounter [...] of this encounter Care Teams Human Resources Project Manager Relationship Specialty Start Date End Date Caitlyn Bowie MD 3400 [facility] 1 [place] [address] PCP - General Internal Medicine 05/06/21 Henry Kelly MD Pulmonary Department 175 [facility], [address] [place] [address] Physician Pulmonary Disease 09/06/17 06/22/20 documented as of this encounter
--- OUTSIDE RECORDS SUMMARY | 2025-03-28 11:49 | XMS_ITS | Encounter Summary ---
Author Organization [facility] Address [address] [place] [address] Care Team Providers Care Services Delivery Driver Name Role Phone Caitlyn Bowie MD Primary Care Provider +1- [phone] Encounter Details Date Type Department Care Team (Late st Contact Info) Description 02/01/2018 Scanned Document [facility] Health Information Management [address] [place] [address] External, Provider Social History Tobacco Use Types [...] at [facility] 240 [facility] Building [address] [place], [place] [phone] Ronald Mills MD [address] [place] [address] [address] [place] [address] documented as of this encounter [...] as of this encounter Care Teams Services Delivery Driver Relationship Specialty Start Date End Date Caitlyn Bowie MD 3400 [facility] 1 [place] [address] PCP - General Internal Medicine 05/06/21 Henry Kelly MD Pulmonary Department 175 [facility], [address] [place] [address] Physician Pulmonary Disease 09/06/17 06/22/20 documented as of this encounter
--- OUTSIDE RECORDS SUMMARY | 2025-03-28 11:49 | XMS_ITS | Encounter Summary ---
Author Organization [facility] and [facility] Address [address] [place] [address] Care Team Providers Care Radiology Transcriptionist Name Role Phone Caitlyn Bowie MD Primary Care Provider +1- [phone] Encounter Details Date Type Department Care Team (Late st Contact Info) Description 02/02/2018 Scanned Document [facility] Health Information Management [address] [place] [address] External, Provider Social History Tobacco Use Types [...] [facility] 240 [facility] Building [address] [place], [place] [phone] Ronald Mills MD 240 [facility] [address]1 [place] [address] documented as of this encounter Visit Diagnoses Not on filedocumented in this encounter Additional Health Concerns Infection Onset Date Last Indicated Resolved Time COVID-19 03/05/2022 03/05/2022 03/15/2022 7:18 PM EDT documented as of this encounter Care Teams Radiology Transcriptionist Relationship Specialty Start Date End Date Caitlyn Bowie MD [address] [facility] 1 [place] [address] PCP - General Internal Medicine 05/06/21 Henry Kelly MD Pulmonary Department 175 [facility], [address] [place] [address] Physician Pulmonary Disease 09/06/17 06/22/20 documented as of this encounter
--- OUTSIDE RECORDS SUMMARY | 2025-03-28 11:49 | XMS_ITS | Encounter Summary ---
Author Organization [facility] and [facility] Address [address] [place] [address] Care Team Providers Care Tow Mate Name Role Phone Caitlyn Bowie MD Primary Care Provider +1- [phone] Encounter Details Date Type Department Care Team (Late st Contact Info) Description 02/02/2018 Scanned Document [facility] Health Information Management [address] [place] [address] External, Provider Social History Tobacco Use Types [...] [facility] [address] [facility] [address] [place], [place] [id number] Ronald Mills MD [address] [place] [address] [address] [place] [address] documented as of this encounter [...] documented as of this encounter Care Teams Tow Mate Relationship Specialty Start Date End Date Caitlyn Bowie MD 3400 [facility] 1 [place] [address] PCP - General Internal Medicine 05/06/21 Henry Kelly MD Pulmonary Department 175 [facility], [address] [place] [address] Physician Pulmonary Disease 09/06/17 06/22/20 documented as of this encounter
--- OUTSIDE RECORDS SUMMARY | 2025-03-28 11:49 | XMS_ITS | Encounter Summary ---
Author Organization [facility] and [facility] Address [address] [place] [address] Care Team Providers Care Sustainable Products Marketing Manager Name Role Phone Caitlyn Bowie MD Primary Care Provider +1- [phone] Encounter Details Date Type Department Care Team (Late st Contact Info) Description 11/09/2020 Scanned Document INTERFACE DEFAULT [address] [place] [address] System, Provider Not In Social History Tobacco [...] [facility] [address] [facility] [address] [place] [address] Ronald Mills MD [address] [place] [address] [address] [place] [address] documented as of this encounter Visit Diagnoses Not on filedocumented in this encounter Additional Health Concerns Infection Onset Date Last Indicated Resolved Time COVID-19 03/05/2022 03/05/2022 03/15/2022 7:18 PM EDT Assessment Noted Time PHQ-9 Depression Total Score: 2 11/07/19 19 2:06 PM EDT documented as of this encounter Care Teams Sustainable Products Marketing Manager Relationship Specialty Start Date End Date Caitlyn Bowie MD [address] [address] PCP - General Internal Medicine 05/06/21 documented as of this encounter
--- OUTSIDE RECORDS SUMMARY | 2025-03-28 11:49 | XMS_ITS | Encounter Summary ---
Author Organization [facility] Address [address] [place] [address] Care Team Providers Care Health Occupations Teacher Name Role Phone Sharon Vides Primary Care Provider Brennan Castro MD Primary Care Provider Unavailab Hayden Montes MD Unavailable [phone] Pallavi Flood NP Unavailable [phone]- [phone] Caitlyn Bowie MD Primary Care Provider Johnathon shaver Encounter Details Date Type Department Care Team Description 12/16/2018 [facility] Medical Records [address] [place] [address] Abstract, Provider Social History Tobacco Use Types [...] filedocumented in this encounter Care Teams Health Occupations Teacher Relationship Specialty Start Date End Date Sharon Vides PCP - General Internal Medicine 08/02/18 05/26/20 Brennan Burnett MD PCP - General Internal Medicine 05/27/20 12/07/21 Caitlyn Bowie MD [address] [place] [address] PCP - General Internal Medicine 12/08/21 Hayden Shah MD [address] [place] [address] Specialist Cardiovascular Disease 09/01/20 Pallavi Flood NP [address] [place] [address] Cardiology 09/01/20 documented as of this encounter
--- OUTSIDE RECORDS SUMMARY | 2025-03-28 11:49 | XMS_ITS | Encounter Summary ---
Author Organization [facility] Address [address] [place] [address] Care Team Providers Care Locker Room Clerk Name Role Phone Caitlyn Bowie MD Primary Care Provider +1- [phone] Encounter Details Date Type Department Care Team (Late st Contact Info) Description 03/13/2015 Scanned Document [facility] Health Information Management [address] [place] [address] External, Provider Social History Tobacco Use Types [...] [facility] 240 [facility] Building [address] [place], [place] [phone] Ronald Mills MD 240 [facility] [address] [place] [address] documented as of this encounter Procedures Procedure Name Priority Date/Time Associated Diagnosis Comments LAB SCAN Routine 02/16/2015 LAB SCAN Routine 02/16/2015 documented in this encounter Results * Lab Scan (02/16/2015) Blood specimen (specimen) us Provider External LAB BLOOD ORDERABLES Final Res ult Performing Organization Address [facility]/ZIP Co de Phone Number [facility] * Lab Scan (02/16/2015) Blood specimen (specimen) Provider External LAB BLOOD ORDERABLES Final Res ult Performing Organization Address [facility] Co de Phone Number [facility] documented in this encounter Visit Diagnoses Not on filedocumented in this encounter Additional Health Concerns Infection Onset Date Last Indicated Resolved Time COVID-19 03/05/2022 03/05/2022 03/15/2022 7:18 PM EDT documented as of this encounter Care Teams Locker Room Clerk Relationship Specialty Start Date End Date Caitlyn Bowie MD 3400 [facility] 1 [place] [address] PCP - General Internal Medicine 05/06/21 Henry Kelly MD Pulmonary Department 175 [facility], [address] [place] [address] Physician Pulmonary Disease 09/06/17 06/22/20 documented as of this encounter
--- OUTSIDE RECORDS SUMMARY | 2025-03-28 11:49 | XMS_ITS | Encounter Summary ---
Author Organization [facility] Address [address] [place] [address] Care Team Providers Care Manager Acute Name Role Phone Sharon Vides Primary Care Provider Brennan Castro MD Primary Care Provider Unavailab Hayden Montes MD Unavailable [phone] Pallavi Flood NP Unavailable [phone]- [phone] Caitlyn Bowie MD Primary Care Provider Johnathon shaver Encounter Details Date Type Department Care Team Description 11/28/2018 Orders Only Pulmonology - [address] [place] [address] Henry Kelly MD Social History [...] filedocumented in this encounter Care Teams Manager Acute Relationship Specialty Start Date End Date Sharon Vides PCP - General Internal Medicine 08/02/18 05/26/20 Brennan Burnett MD PCP - General Internal Medicine 05/27/20 12/07/21 Caitlyn Bowie MD [address] [place] [address] PCP - General Internal Medicine 12/08/21 Hayden Shah MD [address] [place], [place] [address] Specialist Cardiovascular Disease 09/01/20 Pallavi Flood NP [address] [place] [address] Cardiology 09/01/20 documented as of this encounter
--- OUTSIDE RECORDS SUMMARY | 2025-03-28 11:49 | XMS_ITS | Encounter Summary ---
Author Organization [facility] and [facility] Address [address] [place] [address] Care Team Providers Care Signaling Project Engineer Name Role Phone Caitlyn Bowie MD Primary Care Provider +1- [phone] Encounter Details Date Type Department Care Team (Late st Contact Info) Description 01/27/2018 Scanned Document [facility] Health Information Management [address] [place] [address] External, Provider Social History Tobacco Use Types [...] [facility] 240 [facility] [address] [place], [place] [phone] Ronald Mills MD [address] [place] [address] [address] [place] [address] documented as of this encounter Visit Diagnoses Not on filedocumented in this encounter Additional Health Concerns Infection Onset Date Last Indicated Resolved Time COVID-19 03/05/2022 03/05/2022 03/15/2022 7:18 PM EDT documented as of this encounter Care Teams Signaling Project Engineer Relationship Specialty Start Date End Date Caitlyn Bowie MD 3400 [facility] 1 [place] [address] PCP - General Internal Medicine 05/06/21 Henry Kelly MD Pulmonary Department 175 [facility], [address] [place] [address] Physician Pulmonary Disease 09/06/17 06/22/20 documented as of this encounter
--- OUTSIDE RECORDS SUMMARY | 2025-03-28 11:49 | XMS_ITS | Encounter Summary ---
Author Organization [facility] Address [address] [place] [address] Care Team Providers Care Chemist Inorganic Name Role Phone Caitlyn Bowie MD Primary Care Provider +1- [phone] Encounter Details Date Type Department Care Team (Late st Contact Info) Description 05/01/2015 Scanned Document [facility] Health Information Management [address] [place] [address] External, Provider Social History Tobacco Use Types [...] [facility] [address] [place], [place] [phone] Ronald Mills MD 240 [facility] [address] [place] [address] documented as of this encounter [...] documented as of this encounter Care Teams Chemist Inorganic Relationship Specialty Start Date End Date Caitlyn Bowie MD 3400 [facility] Max 1 [place] [address] PCP - General Internal Medicine 05/06/21 Henry Kelly MD Pulmonary Department 175 [facility], [address] [place] [address] Physician Pulmonary Disease 09/06/17 06/22/20 documented as of this encounter
--- OUTSIDE RECORDS SUMMARY | 2025-03-28 11:49 | XMS_ITS | Encounter Summary ---
Author Organization [facility] and [facility] Address [address] [place] [address] Care Team Providers Care Application Release Manager Name Role Phone Caitlyn Bowie MD Primary Care Provider +1- [phone] Encounter Details Date Type Department Care Team (Late st Contact Info) Description 11/09/2014 Scanned Document [facility] Health Information Management [address] [place] [address] External, Provider Social History Tobacco Use Types [...] [facility] 240 [facility] Building [address] [place], [place] [phone] Ronald Mills MD 240 [facility] A1 [place] [address] documented as of this encounter Visit Diagnoses Not on filedocumented in this encounter Additional Health Concerns Infection Onset Date Last Indicated Resolved Time COVID-19 03/05/2022 03/05/2022 03/15/2022 7:18 PM EDT documented as of this encounter Care Teams Application Release Manager Relationship Specialty Start Date End Date Caitlyn Bowie MD 3400 [facility] 1 [place] [address] PCP - General Internal Medicine 05/06/21 Henry Kelly MD Pulmonary Department 175 [facility], [address] [place] [address] Physician Pulmonary Disease 09/06/17 06/22/20 documented as of this encounter
--- OUTSIDE RECORDS SUMMARY | 2025-03-28 11:49 | XMS_ITS | Encounter Summary ---
Author Organization [facility] Address [address] [place] [address] Care Team Providers Care School Health Aide Name Role Phone Sharon Vides Primary Care Provider Brennan Castro MD Primary Care Provider Unavailab Hayden Montes MD Unavailable [phone] Pallavi Flood NP Unavailable [phone]- [phone] Caitlyn Bowie MD Primary Care Provider Johnathon shaver Encounter Details Date Type Department Care Team Description 11/06/2018 Electric Golf Cart Repairer Report Medical Records [address] [place] [address] Abstract, Provider Social History Tobacco Use Types [...] on filedocumented in this encounter Care Teams School Health Aide Relationship Specialty Start Date End Date Sharon Vides PCP - General Internal Medicine 08/02/18 05/26/20 Brennan Burnett MD PCP - General Internal Medicine 05/27/20 12/07/21 Caitlyn Bowie MD [address] [place] [address] PCP - General Internal Medicine 12/08/21 Hayden Shah MD [address] [place] [address] Specialist Cardiovascular Disease 09/01/20 Pallavi Flood NP [address] [place] [address] Cardiology 09/01/20 documented as of this encounter
--- OUTSIDE RECORDS SUMMARY | 2025-03-28 11:49 | XMS_ITS | Encounter Summary ---
Author Organization [facility] Address [address] [place] [address] Care Team Providers Care Frozen Meat Cutter Name Role Phone Caitlyn Bowie MD Primary Care Provider +1- [phone] Encounter Details Date Type Department Care Team (Late st Contact Info) Description 07/31/2015 Scanned Document [facility] Health Information Management [address] [place] [address] External, Provider Social History Tobacco Use Types [...] [facility] [address] [facility] [address] [place], [place] [phone] Ronald Mills MD 240 [facility] [address] [place] [address] documented as of this encounter Procedures Procedure Name Priority Date/Time Associated Diagnosis Comments NUC MED/PET RESULT SCAN Routine 07/31/2015 documented in this encounter Results * Nuc Med/PET Result Scan (07/31/2015) us Provider External IMG SCAN REPORTS Edited Result - Final [facility] [place], [place], [facility] documented in this encounter Visit Diagnoses Not on filedocumented in this encounter Additional Health Concerns Infection Onset Date Last Indicated Resolved Time COVID-19 03/05/2022 03/05/2022 03/15/2022 7:1 8 PM EDT documented as of this encounter Care Teams Frozen Meat Cutter Relationship Specialty Start Date End Date Caitlyn Bowie MD 3400 [facility] 1 [place] [address] PCP - General Internal Medicine 05/06/21 Henry Kelly MD Pulmonary Department 175 [facility], [address] [place] [address] Physician Pulmonary Disease 09/06/17 06/22/20 documented as of this encounter
--- OUTSIDE RECORDS SUMMARY | 2025-03-28 11:49 | XMS_ITS | Encounter Summary ---
Author Organization [facility] and [facility] Address [address] [place] [address] Care Team Providers Care Ship Cleaner Name Role Phone Caitlyn Bowie MD Primary Care Provider +1- [phone] Reason for Visit * Reason Comments Other Encounter Details Date Type Department Care Team (Late st Contact Info) Description 01/12/2021 Telephone [facility] at [address] - [address] [phone] Ronald Mills MD [address] [place] [address] Other Social History Tobacco Use Types [...] AM EDT Lab orders were faxed to [facility] @ [phone]. Patient notified by phone. * Telephone Encounter - aKthleen Nasima - 01/12/2021 8:46 AM EDT Pt called looking to speak with Kirstin RE: lab orders sent to lab [facility] lab Looking to have labs sent there A.S.A.P at some point today She is scheduled with Dr. Mills on January 28 documented in this encounter Plan of Treatment Upcoming Encounters Date Type Department Care Team (Late st Contact Info) Description 04/25/2025 4:00 PM EDT Telemedicine [facility] 240 [facility] Building [address] [place], [place] [address] Ronald Mills MD 240 [facility] Max [address] [place] [address] documented as of this encounter Visit Diagnoses Not on filedocumented in this encounter Additional Health Concerns Infection Onset Date Last Indicated Resolved Time COVID-19 03/05/2022 03/05/2022 03/15/2022 7:18 PM EDT Assessment Noted Time PHQ-9 Depression Total Score: 2 11/07/19 19 2:06 PM EDT documented as of this encounter Care Teams Ship Cleaner Relationship Specialty Start Date End Date Caitlyn Bowie MD [address] [address] PCP - General Internal Medicine 05/06/21 documented as of this encounter
--- OUTSIDE RECORDS SUMMARY | 2025-03-28 11:49 | XMS_ITS | Encounter Summary ---
Author Organization [facility] and [facility] Address [address] [place] [address] Care Team Providers Care Catering Barista Name Role Phone Caitlyn Bowie MD Primary Care Provider +1- [phone] Encounter Details Date Type Department Care Team (Late st Contact Info) Description 12/21/2020 Scanned Document INTERFACE DEFAULT [address] [place] [address] System, Provider Not In Social History Tobacco [...] [facility] Building [address] [place] [address] Ronald Mills MD [address] [place] [address] [address] [place] [address] documented as of this encounter Visit Diagnoses Not on filedocumented in this encounter Additional Health Concerns Infection Onset Date Last Indicated Resolved Time COVID-19 03/05/2022 03/05/2022 03/15/2022 7:18 PM EDT Assessment Noted Time PHQ-9 Depression Total Score: 2 11/07/19 19 2:06 PM EDT documented as of this encounter Care Teams Catering Barista Relationship Specialty Start Date End Date Caitlyn Bowie MD [address] [address] PCP - General Internal Medicine 05/06/21 documented as of this encounter
--- OUTSIDE RECORDS SUMMARY | 2025-03-28 11:49 | XMS_ITS | Encounter Summary ---
Author Organization [facility] Address [address] [place] [address] Care Team Providers Care Day Guard Name Role Phone Sharon Vides Primary Care Provider Brennan Castro MD Primary Care Provider Unavailab Hayden Montes MD Unavailable [phone] Pallavi Flood NP Unavailable [phone]- [phone] Caitlyn Bowie MD Primary Care Provider Johnathon shaver Encounter Details Date Type Department Care Team Description 02/07/2019 [facility] Medical Records [address] [place] [address] Landen Aaron DO Social History Tobacco Use [...] on filedocumented in this encounter Care Teams Day Guard Relationship Specialty Start Date End Date Sharon Vides PCP - General Internal Medicine 08/02/18 05/26/20 Brennan Burnett MD PCP - General Internal Medicine 05/27/20 12/07/21 Caitlyn Bowie MD [address] [place] [address] PCP - General Internal Medicine 12/08/21 Hayden Shah MD [address] [place], [place] [address] Specialist Cardiovascular Disease 09/01/20 Pallavi Flood NP [address] [place], [place] [address] Cardiology 09/01/20 documented as of this encounter
--- OUTSIDE RECORDS SUMMARY | 2025-03-28 11:49 | XMS_ITS | Encounter Summary ---
Author Organization [facility] and [facility] Address [address] [place] [address] Care Team Providers Care Cafe Server Name Role Phone Caitlyn Bowie MD Primary Care Provider +1- [phone] Encounter Details Date Type Department Care Team (Late st Contact Info) Description 05/14/2015 Scanned Document [facility] Health Information Management [address] [place] [address] External, Provider Social History Tobacco Use Types [...] 240 [facility] Building [address] [place], [place] [phone] Ronald Mills MD 240 [facility] [address]1 [place] [address] documented as of this encounter Visit Diagnoses Not on filedocumented in this encounter Additional Health Concerns Infection Onset Date Last Indicated Resolved Time COVID-19 03/05/2022 03/05/2022 03/15/2022 7:18 PM EDT documented as of this encounter Care Teams Cafe Server Relationship Specialty Start Date End Date Caitlyn Bowie MD 3400 [facility] 1 [place] [address] PCP - General Internal Medicine 05/06/21 Henry Kelly MD Pulmonary Department 175 [facility], [address] [place] [address] Physician Pulmonary Disease 09/06/17 06/22/20 documented as of this encounter
--- OUTSIDE RECORDS SUMMARY | 2025-03-28 11:49 | XMS_ITS | Encounter Summary ---
Author Organization [facility] Address [address] [place] [address] Care Team Providers Care Sports Lawyer Name Role Phone Caitlyn Bowie MD Primary Care Provider +1- [phone] Encounter Details Date Type Department Care Team (Late st Contact Info) Description 04/28/2015 Scanned Document [facility] Health Information Management [address] [place] [address] External, Provider Social History Tobacco Use Types [...] at [facility] 240 [facility] Building [address] [place], [place] [phone] Ronald Mills MD 240 [facility] [address] [place] [address] documented as of this encounter Procedures Procedure Name Priority Date/Time Associated Diagnosis Comments LAB SCAN Routine 04/28/2015 documented in this encounter Results * Lab Scan (04/28/2015) Blood specimen (specimen) us Provider External LAB BLOOD ORDERABLES Edited Re sult - Final [facility] documented in this encounter Visit Diagnoses Not on filedocumented in this encounter Additional Health Concerns Infection Onset Date Last Indicated Resolved Time COVID-19 03/05/2022 03/05/2022 03/15/2022 7:18 PM EDT documented as of this encounter Care Teams Sports Lawyer Relationship Specialty Start Date End Date Caitlyn Bowie MD 3400 [facility] 1 [place] [address] PCP - General Internal Medicine 05/06/21 Henry Kelly MD Pulmonary Department 175 [facility], [address] [place] [address] Physician Pulmonary Disease 09/06/17 06/22/20 documented as of this encounter
--- OUTSIDE RECORDS SUMMARY | 2025-03-28 11:49 | XMS_ITS | Encounter Summary ---
Author Organization [facility] and [facility] Address [address] [place] [phone] Care Team Providers Care Touch Up Edger Name Role Phone Caitlyn Bowie MD Primary Care Provider +1- [phone] Encounter Details Date Type Department Care Team (Late st Contact Info) Description 01/27/2018 Scanned Document [facility] Health Information Management [address] [place] [address] External, Provider Social History Tobacco Use Types [...] [facility] [address] [facility] [address] [place] [address] Ronald Mills MD 240 [facility] [address] [place] [address] documented as of this encounter [...] MD 3400 [facility] 1 [place] [address] PCP - General Internal Medicine 05/06/21 Henry Kelly MD Pulmonary Department 175 [facility], [address] [place] [address] Physician Pulmonary Disease 09/06/17 06/22/20 documented as of this encounter
--- OUTSIDE RECORDS SUMMARY | 2025-03-28 11:49 | XMS_ITS | Encounter Summary ---
Author Organization [facility] Address [address] [place] [address] Care Team Providers Care Senior Operations Manager Name Role Phone Caitlyn Bowie MD Primary Care Provider +1- [phone] Encounter Details Date Type Department Care Team (Late st Contact Info) Description 03/14/2025 Scanned Document [facility] Neurology Ophthalmology [address] [place] [phone] Shirley Chaidez PA-C [address] [address] Social History Tobacco Use Types Packs/Day Years [...] filedocumented in this encounter Care Teams Senior Operations Manager Relationship Specialty Start Date End Date Caitlyn Bowie MD [address] [place] [address] PCP - General Internal Medicine 03/20/23 documented as of this encounter
--- OUTSIDE RECORDS SUMMARY | 2025-03-28 11:49 | XMS_ITS | Encounter Summary ---
Author Organization [facility] and [facility] Address [address] [place] [address] Care Team Providers Care Water/Wastewater Project Engineer Name Role Phone Caitlyn Bowie MD Primary Care Provider [phone]- [phone] Encounter Details Date Type Department Care Team (Late st Contact Info) Description 01/26/2018 Scanned Document [facility] Health Information Management [address] [place] [address] External, Provider Social History Tobacco Use Types [...] [facility] [address] [facility] [address] [place], [place] [id number] Ronald Mills MD [address] [place] [address] [address] [place] [address] documented as of this [...] of this encounter Care Teams Water/Wastewater Project Engineer Relationship Specialty Start Date End Date Caitlyn Bowie MD 3400 [facility] 1 [place] [address] PCP - General Internal Medicine 05/06/21 Henry Kelly MD Pulmonary Department 175 [facility], [address] [place] [address] Physician Pulmonary Disease 09/06/17 06/22/20 documented as of this encounter
--- OUTSIDE RECORDS SUMMARY | 2025-03-28 11:49 | XMS_ITS | Encounter Summary ---
Author Organization [facility] and [facility] Address [address] [place] [address] Care Team Providers Care Upholsterer Limousine And Hearse Name Role Phone Caitlyn Bowie MD Primary Care Provider +1- [phone] Encounter Details Date Type Department Care Team (Late st Contact Info) Description 01/30/2018 Scanned Document [facility] Health Information Management [address] [place] [address] External, Provider Social History Tobacco Use Types [...] [facility] 240 [facility] [address] [place] [address] Ronald Mills MD [address] [place] [address] [address] [place] [address] documented as of this encounter [...] documented as of this encounter Care Teams Upholsterer Limousine And Hearse Relationship Specialty Start Date End Date Caitlyn Bowie MD [facility] 1 [place] [address] PCP - General Internal Medicine 05/06/21 Henry Kelly MD Pulmonary Department 175 [facility], [address] [place] [address] Physician Pulmonary Disease 09/06/17 06/22/20 documented as of this encounter
--- OUTSIDE RECORDS SUMMARY | 2025-03-28 11:49 | XMS_ITS | Encounter Summary ---
Author Organization [facility] and [facility] Address [address] [place] [address] Care Team Providers Care Shopper Insights Manager Name Role Phone Caitlyn Bowie MD Primary Care Provider [phone]- [phone] Encounter Details Date Type Department Care Team (Late st Contact Info) Description 04/28/2015 Scanned Document [facility] Health Information Management [address] [place] [address] External, Provider Social History Tobacco Use Types [...] [facility] 240 [facility] Building [address] [place], [place] [id number] Ronald Mills MD 240 [facility] [address] [place] [address] documented as of this encounter Visit Diagnoses Not on filedocumented in this encounter Additional Health Concerns Infection Onset Date Last Indicated Resolved Time COVID-19 03/05/2022 03/05/2022 03/15/2022 7:18 PM EDT documented as of this encounter Care Teams Shopper Insights Manager Relationship Specialty Start Date End Date Caitlyn Bowie MD 3400 [facility] 1 [place] [address] PCP - General Internal Medicine 05/06/21 Henry Kelly MD Pulmonary Department 175 [facility], [address] [place] [address] Physician Pulmonary Disease 09/06/17 06/22/20 documented as of this encounter
--- OUTSIDE RECORDS SUMMARY | 2025-03-28 11:49 | XMS_ITS | Encounter Summary ---
Author Organization [facility] Address [address] [place] [address] Care Team Providers Care Director Business Intelligence Name Role Phone Sharon Vides Primary Care Provider Brennan Castro MD Primary Care Provider Unavailab Hayden Montes MD Unavailable [phone] Pallavi Flood NP Unavailable [phone]- [phone] Caitlyn Bowie MD Primary Care Provider Johnathon shaver Encounter Details Date Type Department Care Team Description 10/01/2018 Orders Only Pulmonology - [address] [place] [address] Henry Kelly MD Mixed simple [...] bronchitis documented in this encounter Care Teams Director Business Intelligence Relationship Specialty Start Date End Date Sharon Vides PCP - General Internal Medicine 08/02/18 05/26/20 Brennan Burnett MD PCP - General Internal Medicine 05/27/20 12/07/21 Caitlyn Bowie MD [address] [place] [address] PCP - General Internal Medicine 12/08/21 Hayden Shah MD [address] [place] [address] Specialist Cardiovascular Disease 09/01/20 Pallavi Flood NP [address] [place] [address] Cardiology 09/01/20 documented as of this encounter
--- OUTSIDE RECORDS SUMMARY | 2025-03-28 11:49 | XMS_ITS | Encounter Summary ---
Author Organization [facility] Address [address] [place] [address] Care Team Providers Care Stand In Name Role Phone Sharon Vides Primary Care Provider Brennan Castro MD Primary Care Provider Unavailab Hayden Montes MD Unavailable [phone] Pallavi Flood NP Unavailable [phone] Caitlyn Bowie MD Primary Care Provider Johnathon shaver Encounter Details Date Type Department Care Team Description 09/05/2018 Night Triage Doc Medical Records [address] [place] [address] Abstract, Provider Social History Tobacco Use Types [...] on filedocumented in this encounter Care Teams Stand In Relationship Specialty Start Date End Date Sharon Vides PCP - General Internal Medicine 08/02/18 05/26/20 Brennan Burnett MD PCP - General Internal Medicine 05/27/20 12/07/21 Caitlyn Bowie MD [address] [place] [address] PCP - General Internal Medicine 12/08/21 Hayden Shah MD [address] [place] [address] Specialist Cardiovascular Disease 09/01/20 Pallavi Flood NP [address] [place] [address] Cardiology 09/01/20 documented as of this encounter
--- OUTSIDE RECORDS SUMMARY | 2025-03-28 11:49 | XMS_ITS | Encounter Summary ---
Author Organization [facility] Address [address] [place] [address] Care Team Providers Care Forest Nursery Worker Name Role Phone Sharon Vides Primary Care Provider Brennan Castro MD Primary Care Provider Unavailab Hayden Montes MD Unavailable [phone] Pallavi Flood NP Unavailable [phone] Caitlyn Bowie MD Primary Care Provider Johnathon shaver Encounter Details Date Type Department Care Team Description 10/03/2018 Pt. Non Urgent Medic al Question Pulmonology - [place] 175 [facility] [address] [place] [address] Henry Kelly MD Social History [...] Dr Menjivar's office had scheduled it in [place] earlier in the day of my appointment [...] filedocumented in this encounter Care Teams Forest Nursery Worker Relationship Specialty Start Date End Date Sharon Vides PCP - General Internal Medicine 08/02/18 05/26/20 Brennan Burnett MD PCP - General Internal Medicine 05/27/20 12/07/21 Caitlyn Bowie MD [address] [place] [address] PCP - General Internal Medicine 12/08/21 Hayden Shah MD [address] [place] [address] Specialist Cardiovascular Disease 09/01/20 Pallavi Flood NP [address] [place] [address] Cardiology 09/01/20 documented as of this encounter
--- OUTSIDE RECORDS SUMMARY | 2025-03-28 11:49 | XMS_ITS | Encounter Summary ---
Author Organization [facility] Address [address] [place] [address] Care Team Providers Care Welt Stitch Cleaner Name Role Phone Sharon Vides Primary Care Provider Unava ilable Brennan Burnett MD Primary Care Provider Unavailab Hayden Montes MD Unavailable [phone] Pallavi Flood NP Unavailable [phone] Caitlyn Bowie MD Primary Care Provider Unava ilable Reason for Visit * Reason Onset Date Comments Pulmonary Problem 09/21/2018 HILO REFERRA L NEEDS PFTS Encounter Details Date Type Department Care Team Description 09/21/2018 Telephone Pulmonology - [address] [place] [address] Henry Kelly MD Pulmonary Problem (HILO REFERRAL NEEDS PFTS) Social History Tobacco Use [...] , OP notes and labs faxed to [facility]. * Telephone Encounter - Nasima Sr M.A. - 10/02/2018 11:57 AM EDT I called patient back and she has been scheduled with the [facility] for a PFT. * Telephone Encounter [...] her to a Dr Kerwin Menjivar in [place]. Please advise. * Telephone Encounter - Paloma [...] / Plan: [place] / Product Type: MEDICARE [id number] documented in this encounter Plan of Treatment Not on file documented as of this encounter Visit Diagnoses Not on filedocumented in this encounter Care Teams Welt Stitch Cleaner Relationship Specialty Start Date End Date Sharon Vides PCP - General Internal Medicine 08/02/18 05/26/20 Brennan Burnett MD PCP - General Internal Medicine 05/27/20 12/07/21 Caitlyn Bowie MD [address] [place] [address] PCP - General Internal Medicine 12/08/21 Hayden Shah MD [address] [place] [address] Specialist Cardiovascular Disease 09/01/20 Pallavi Flood NP [address] [place] [address] Cardiology 09/01/20 documented as of this encounter
--- OUTSIDE RECORDS SUMMARY | 2025-03-28 11:49 | XMS_ITS | Encounter Summary ---
Author Organization [facility] Address [address] [place] [address] Care Team Providers Care Sewer Inspector Name Role Phone Sharon Vides Primary Care Provider Unava ilable Brennan Burnett MD Primary Care Provider Unavailab Hayden Montes MD Unavailable [phone] Pallavi Flood NP Unavailable [phone] Caitlyn Bowie MD Primary Care Provider Unava ilable Reason for Visit * Reason Onset Date Comments refill request 01/28/2019 Encounter Details Date Type Department Care Team Description 01/28/2019 Refill Pulmonology - [address] [place] [address] Henry Kelly MD refill request [...] / Plan: [place] / Product Type: MEDICARE [id number] documented in this encounter Plan of Treatment Not on file documented as of this encounter Visit Diagnoses Not on filedocumented in this encounter Care Teams Sewer Inspector Relationship Specialty Start Date End Date Sharon Vides PCP - General Internal Medicine 08/02/18 05/26/20 Brennan Burnett MD PCP - General Internal Medicine 05/27/20 12/07/21 Caitlyn Bowie MD [address] [place] [address] PCP - General Internal Medicine 12/08/21 Hayden Shah MD [address] [place] [address] Specialist Cardiovascular Disease 09/01/20 Pallavi Flood NP [address] [place] [address] Cardiology 09/01/20 documented as of this encounter
--- OUTSIDE RECORDS SUMMARY | 2025-03-28 11:49 | XMS_ITS | Encounter Summary ---
Author Organization [facility] Address [address] [place] [address] Care Team Providers Care Blueprint Engineer Name Role Phone Caitlyn Bowie MD Primary Care Provider [phone]- [phone] Encounter Details Date Type Department Care Team (Late st Contact Info) Description 04/16/2018 Scanned Document [facility] Health Information Management [address] [place] [address] External, Provider Social History Tobacco Use Types [...] [facility] 240 [facility] Building [address] [place], [place] [id number] Ronald Mills MD [address] [place] [address] [address] [place] [address] documented as of this encounter Visit Diagnoses Not on filedocumented in this encounter Additional Health Concerns Infection Onset Date Last Indicated Resolved Time COVID-19 03/05/2022 03/05/2022 03/15/2022 7:18 PM EDT documented as of this encounter Care Teams Blueprint Engineer Relationship Specialty Start Date End Date Caitlyn Bowie MD 3400 [facility] 1 [place] [address] PCP - General Internal Medicine 05/06/21 Henry Kelly MD Pulmonary Department 175 [facility], [address] [place] [address] Physician Pulmonary Disease 09/06/17 06/22/20 documented as of this encounter
--- OUTSIDE RECORDS SUMMARY | 2025-03-28 11:49 | XMS_ITS | Encounter Summary ---
Author Organization [facility] Address [address] [place] [address] Care Team Providers Care Transit Clerk Name Role Phone Caitlyn Bowie MD Primary Care Provider [phone]- [phone] Encounter Details Date Type Department Care Team (Late st Contact Info) Description 12/04/2014 Scanned Document [facility] Health Information Management [address] [place] [address] External, Provider Social History Tobacco Use Types [...] [facility] 240 [facility] Building [address] [place], [place] [id number] Ronald Mills MD 240 [facility] [address] [place] [address] documented as of this encounter Procedures Procedure Name Priority Date/Time Associated Diagnosis Comments LAB SCAN Routine 12/04/2014 documented in this encounter Results * Lab Scan (12/04/2014) Blood specimen (specimen) us Provider External LAB BLOOD ORDERABLES Final Res ult [facility] documented in this encounter Visit Diagnoses Not on filedocumented in this encounter Additional Health Concerns Infection Onset Date Last Indicated Resolved Time COVID-19 03/05/2022 03/05/2022 03/15/2022 7:18 PM EDT documented as of this encounter Care Teams Transit Clerk Relationship Specialty Start Date End Date Caitlyn Bowie MD 3400 [facility] 1 [place] [address] PCP - General Internal Medicine 05/06/21 Henry Kelly MD Pulmonary Department 175 [facility], [address] [place] [address] Physician Pulmonary Disease 09/06/17 06/22/20 documented as of this encounter
--- OUTSIDE RECORDS SUMMARY | 2025-03-28 11:49 | XMS_ITS | Encounter Summary ---
Author Organization [facility] Address [address] [place] [address] Care Team Providers Care Supervisor Metal Furniture Fabrication Name Role Phone Sharon Vides Primary Care Provider Brennan Castro MD Primary Care Provider Unavailab Hayden Montes MD Unavailable [phone] Pallavi Flood NP Unavailable [phone] Caitlyn Bowie MD Primary Care Provider Johnathon shaver Encounter Details Date Type Department Care Team Description 01/09/2019 Hospital Medical Records 4 [place] [address] Norma Mendoza MD [address] [place] [address] Social History Tobacco Use Types Packs/Day Years [...] filedocumented in this encounter Care Teams Supervisor Metal Furniture Fabrication Relationship Specialty Start Date End Date Sharon Vides PCP - General Internal Medicine 08/02/18 05/26/20 Brennan Burnett MD PCP - General Internal Medicine 05/27/20 12/07/21 Caitlyn Bowie MD [address] [place] [address] PCP - General Internal Medicine 12/08/21 Hayden Shah MD [address] [place] [address] Specialist Cardiovascular Disease 09/01/20 Pallavi Flood NP [address] [place] [phone] Cardiology 09/01/20 documented as of this encounter
--- OUTSIDE RECORDS SUMMARY | 2025-03-28 11:49 | XMS_ITS | Encounter Summary ---
Author Organization [facility] Address [address] [place] [address] Care Team Providers Care Crusher Wet Ground Mica Name Role Phone Sharon Vides Primary Care Provider Brennan Castro MD Primary Care Provider Unavailab Hayden Montes MD Unavailable [phone] Pallavi Flood NP Unavailable [phone] Caitlyn Bowie MD Primary Care Provider Johnathon shaver Encounter Details Date Type Department Care Team Description 12/28/2018 Orders Only Medical Records [address] [place] [address] Abstract, Provider Aspiration pneumonia, unspecified aspiration pneumonia [...] (HCC) documented in this encounter Care Teams Crusher Wet Ground Mica Relationship Specialty Start Date End Date Sharon Vides PCP - General Internal Medicine 08/02/18 05/26/20 Brennan Burnett MD PCP - General Internal Medicine 05/27/20 12/07/21 Caitlyn Bowie MD [address] [place] [address] PCP - General Internal Medicine 12/08/21 Hayden Shah MD [address] [place] [address] Specialist Cardiovascular Disease 09/01/20 Pallavi Flood NP [address] [place] [address] Cardiology 09/01/20 documented as of this encounter
--- OUTSIDE RECORDS SUMMARY | 2025-03-28 11:49 | XMS_ITS | Encounter Summary ---
Author Organization [facility] Address [address] [place] [address] Care Team Providers Care Shipping Checker Name Role Phone Caitlyn Bowie MD Primary Care Provider [phone]- [phone] Encounter Details Date Type Department Care Team (Late st Contact Info) Description 01/26/2018 Scanned Document [facility] Health Information Management [address] [place] [address] External, Provider Social History Tobacco Use Types [...] [facility] 240 [facility] Building [address] [place] [address] Ronald Mills MD [address] [place] [address] [address] [place] [address] documented as of this encounter [...] as of this encounter Care Teams Shipping Checker Relationship Specialty Start Date End Date Caitlyn Bowie MD 3400 [facility] 1 [place] [address] PCP - General Internal Medicine 05/06/21 Henry Kelly MD Pulmonary Department [address] [place] [address], [address] [place] [address] Physician Pulmonary Disease 09/06/17 06/22/20 documented as of this encounter
--- OUTSIDE RECORDS SUMMARY | 2025-03-28 11:49 | XMS_ITS | Encounter Summary ---
Author Organization [facility] Address [address] [place] [address] Care Team Providers Care Pattern Illustrator Name Role Phone Sharon Vides Primary Care Provider Brennan Castro MD Primary Care Provider Unavailab Hayden Montes MD Unavailable [phone] Pallavi Flood NP Unavailable [phone] Caitlyn Bowie MD Primary Care Provider Johnathon shaver Encounter Details Date Type Department Care Team Description 12/30/2018 Pt. Non Urgent Medic al Question Pulmonology - [place] 175 [facility] [address] [place] [address] Henry Kelly MD Social History [...] on filedocumented in this encounter Care Teams Pattern Illustrator Relationship Specialty Start Date End Date Sharon Vides PCP - General Internal Medicine 08/02/18 05/26/20 Brennan Burnett MD PCP - General Internal Medicine 05/27/20 12/07/21 Caitlyn Bowie MD [address] [place] [address] PCP - General Internal Medicine 12/08/21 Hayden Shah MD [address] [place] [phone] Specialist Cardiovascular Disease 09/01/20 Pallavi Flood NP [address] [place] [phone] Cardiology 09/01/20 documented as of this encounter
--- OUTSIDE RECORDS SUMMARY | 2025-03-28 11:49 | XMS_ITS | Encounter Summary ---
Author Organization [facility] Address [address] [place] [address] Care Team Providers Care Virtualization Architect Name Role Phone Caitlyn Bowie MD Primary Care Provider [phone]- [phone] Encounter Details Date Type Department Care Team ([facility] st Contact Info) Description 08/26/2014 Documentation [facility] [address] [place] [address] Shilpi Ibarra [address] [place] [address] Social History Tobacco Use Types Packs/Day Years [...] [facility] Progress Note This is a 69 y.o. female who was provided services by [facility]. Service Provided By:: Shilpi Ibarra Patient Status: return Length of Appointment: 60 minutes documented in this encounter Plan of Treatment Upcoming Encounters Date Type Department Care Team ([facility] st Contact Info) Description 04/25/2025 4:00 PM EDT Telemedicine [facility] 240 [facility] [address] [place] [address] Ronald Mills MD 240 [facility] [address] [place] [address] documented as of this encounter Visit Diagnoses Not on filedocumented in this encounter Additional Health Concerns Infection Onset Date Last Indicated Resolved Time COVID-19 03/05/2022 03/05/2022 03/15/2022 7:18 PM EDT documented as of this encounter Care Teams Virtualization Architect Relationship Specialty Start Date End Date Caitlyn Bowie MD 3400 [facility] 1 [place] [address] PCP - General Internal Medicine 05/06/21 Henry Kelly MD Pulmonary Department 175 [facility], [address] [place] [address] Physician Pulmonary Disease 09/06/17 06/22/20 documented as of this encounter
--- OUTSIDE RECORDS SUMMARY | 2025-03-28 11:49 | XMS_ITS | Encounter Summary ---
Author Organization [facility] Address [address] [place] [address] Care Team Providers Care Maintenance Instructor Name Role Phone Caitlyn Bowie MD Primary Care Provider [phone]- [phone] Encounter Details Date Type Department Care Team (Late st Contact Info) Description 02/19/2015 Scanned Document [facility] Health Information Management [address] [place] [address] External, Provider Social History Tobacco Use Types [...] [facility] 240 [facility] Building [address] [place], [place] [id number] Ronald Mills MD 240 [facility] [address] [place] [address] documented as of this encounter Procedures Procedure Name Priority Date/Time Associated Diagnosis Comments LAB SCAN Routine 02/19/2015 documented in this encounter Results * Lab Scan (02/19/2015) Blood specimen (specimen) us Provider External LAB BLOOD ORDERABLES Final Res ult [facility] documented in this encounter Visit Diagnoses Not on filedocumented in this encounter Additional Health Concerns Infection Onset Date Last Indicated Resolved Time COVID-19 03/05/2022 03/05/2022 03/15/2022 7:18 PM EDT documented as of this encounter Care Teams Maintenance Instructor Relationship Specialty Start Date End Date Caitlyn Bowie MD 3400 [facility] 1 [place] [address] PCP - General Internal Medicine 05/06/21 Henry Kelly MD Pulmonary Department 175 [facility], [address] [place] [address] Physician Pulmonary Disease 09/06/17 06/22/20 documented as of this encounter
--- OUTSIDE RECORDS SUMMARY | 2025-03-28 11:49 | XMS_ITS | Encounter Summary ---
Author Organization [facility] Address [address] [place] [address] Care Team Providers Care Rubbish Collector Name Role Phone Sharon Vides Primary Care Provider Brennan Castro MD Primary Care Provider Unavailab Hayden Montes MD Unavailable [phone] Pallavi Flood NP Unavailable +1- [phone] Caitlyn Bowie MD Primary Care Provider Johnathon shaver Encounter Details Date Type Department Care Team Description 09/01/2018 Release of Information Medical Records [address] [place] [address] Abstract, Provider Social History Tobacco Use Types [...] on filedocumented in this encounter Care Teams Rubbish Collector Relationship Specialty Start Date End Date Sharon Vides PCP - General Internal Medicine 08/02/18 05/26/20 Brennan Burnett MD PCP - General Internal Medicine 05/27/20 12/07/21 Caitlyn Bowie MD [address] [place] [address] PCP - General Internal Medicine 12/08/21 Hayden Shah MD [address] [place] [address] Specialist Cardiovascular Disease 09/01/20 Pallavi Flood NP [address] [place] [address] Cardiology 09/01/20 documented as of this encounter
--- OUTSIDE RECORDS SUMMARY | 2025-03-28 11:49 | XMS_ITS | Encounter Summary ---
Author Organization [facility] and [facility] Address [address] [place] [address] Care Team Providers Care Subscription Clerk Name Role Phone Caitlyn Bowie MD Primary Care Provider +1- [phone] Encounter Details Date Type Department Care Team (Late st Contact Info) Description 06/25/2015 Scanned Document [facility] Health Information Management [address] [place] [address] External, Provider Social History Tobacco Use Types [...] [facility] 240 [facility] [address] [place], [place] [id number] Ronald Mills MD 240 [facility] [address] [place] [address] documented as of this encounter Visit Diagnoses Not on filedocumented in this encounter Additional Health Concerns Infection Onset Date Last Indicated Resolved Time COVID-19 03/05/2022 03/05/2022 03/15/2022 7:18 PM EDT documented as of this encounter Care Teams Subscription Clerk Relationship Specialty Start Date End Date Caitlyn Bowie MD 3400 [facility] 1 [place] [address] PCP - General Internal Medicine 05/06/21 Henry Kelly MD Pulmonary Department 175 [facility], [address] [place] [address] Physician Pulmonary Disease 09/06/17 06/22/20 documented as of this encounter
--- OUTSIDE RECORDS SUMMARY | 2025-03-28 11:49 | XMS_ITS | Encounter Summary ---
Author Organization [facility] Address [address] [place] [address] Care Team Providers Care Eligibility Specialist Name Role Phone Sharon Vides Primary Care Provider Brennan Castro MD Primary Care Provider Unavailab Hayden Montes MD Unavailable [phone] Pallavi Flood NP Unavailable [phone]- [phone] Caitlyn Bowie MD Primary Care Provider Johnathon shaver Encounter Details Date Type Department Care Team Description 11/26/2018 Pt. Non Urgent Medic al Question Pulmonology - [place] 175 [facility] [address] [place] [address] Henry Kelly MD Social History [...] on filedocumented in this encounter Care Teams Eligibility Specialist Relationship Specialty Start Date End Date Sharon Vides PCP - General Internal Medicine 08/02/18 05/26/20 Brennan Burnett MD PCP - General Internal Medicine 05/27/20 12/07/21 Caitlyn Bowie MD [address] [place] [address] PCP - General Internal Medicine 12/08/21 Hayden Shah MD [address] [place] [address] Specialist Cardiovascular Disease 09/01/20 Pallavi Flood NP [address] [place] [address] Cardiology 09/01/20 documented as of this encounter
--- OUTSIDE RECORDS SUMMARY | 2025-03-28 11:49 | XMS_ITS | Encounter Summary ---
Author Organization [facility] and [facility] Address [address] [place] [address] Care Team Providers Care Party Plan Sales Consultant Name Role Phone Caitlyn Bowie MD Primary Care Provider +1- [phone] Encounter Details Date Type Department Care Team (Late st Contact Info) Description 01/28/2018 Scanned Document [facility] Health Information Management [address] [place] [address] External, Provider Social History Tobacco Use Types [...] [facility] 240 [facility] [address] [place], [place] [address] Ronald Mills MD 240 [facility] [address] [place] [address] documented as of this encounter Visit Diagnoses Not on filedocumented in this encounter Additional Health Concerns Infection Onset Date Last Indicated Resolved Time COVID-19 03/05/2022 03/05/2022 03/15/2022 7:18 PM EDT documented as of this encounter Care Teams Party Plan Sales Consultant Relationship Specialty Start Date End Date Caitlyn Bowie MD 3400 [facility] 1 [place] [address] PCP - General Internal Medicine 05/06/21 Henry Kelly MD Pulmonary Department 175 [facility], [address] [place] [address] Physician Pulmonary Disease 09/06/17 06/22/20 documented as of this encounter
--- OUTSIDE RECORDS SUMMARY | 2025-03-28 11:50 | XMS_ITS | Encounter Summary ---
Author Organization [facility] and [facility] Address [address] [place] [address] Care Team Providers Care Program Clerk Name Role Phone Caitlyn Bowie MD Primary Care Provider +1- [phone] Encounter Details Date Type Department Care Team (Late st Contact Info) Description 10/08/2021 Scanned Document INTERFACE DEFAULT [address] [place] [address] System, Provider Not In Social History Tobacco [...] [facility] 240 [facility] Building [address] [place], [place] [id number] Ronald Mills MD [address] [place] [address] [address] [place] [address] documented as of this encounter [...] as of this encounter Care Teams Program Clerk Relationship Specialty Start Date End Date Caitlyn Bowie MD [address] [address] PCP - General Internal Medicine 05/06/21 documented as of this encounter
--- OUTSIDE RECORDS SUMMARY | 2025-03-28 11:50 | XMS_ITS | Encounter Summary ---
Author Organization [facility] Address [address] [place] [address] Phone Care Team Providers Care Best Second Jobs Name Role Phone Caitlyn Bowie MD Primary Care Provider +1- [phone] Encounter Details Date Type Department Care Team (Late Contact Info) Description 03/17/2025 Office Communication [facility] [address] [place] [place] [address] Marina Abdi [address] [place] [address] Social History Tobacco Use Types Packs/Day Years [...] Visit [facility] [address] [place] [place] [address] Rubén Ashraf MD [address] [place] [address] [place] [address] documented as of this encounter Visit Diagnoses Not on filedocumented in this encounter Care Teams Best Second Jobs Relationship Specialty Start Date End Date Caitlyn Bowie MD [address] [place], [place] PCP - General Internal Medicine 09/24/24 documented as of this encounter
--- OUTSIDE RECORDS SUMMARY | 2025-03-28 11:50 | XMS_ITS | Encounter Summary ---
Author Organization [facility] and [facility] Address [address] [place] [address] Care Team Providers Care Insurance Salesman Name Role Phone Caitlyn Bowie MD Primary Care Provider +1- [phone] Encounter Details Date Type Department Care Team (Late st Contact Info) Description 04/25/2021 Scanned Document INTERFACE DEFAULT [address] [place] [address] System, Provider Not In Social History Tobacco [...] [facility] 240 [facility] Building [address] [place] [address] Ronald Mills MD [address] [place] [address] [address] [place] [address] documented as of this encounter [...] as of this encounter Care Teams Insurance Salesman Relationship Specialty Start Date End Date Caitlyn Bowie MD [address] [address] PCP - General Internal Medicine 05/06/21 documented as of this encounter
--- OUTSIDE RECORDS SUMMARY | 2025-03-28 11:50 | XMS_ITS | Clinical Summary ---
Author Organization [facility] Address [address] [place] [address] Care Team Providers Care Assurance Specialist Name Role Phone Caitlyn Bowie MD Primary Care Provider +1- [phone] Allergies Active Allergy Reactions Criticality Noted Date [...] Breath High 05/09/2008 Bronchospasm or Wheezing Ipratropium Rickman Unknown/Patient and Family Unable to Define Medium [...] 1 capsule by mouth daily. Active B Roggubd-R-Ktyzn Acid (STRESS 500 B-COMPLEX PO) Take 1 [...] Department Care Team Description 03/14/2025 Scanned Document [facility] Neurology Ophthalmology [address] [address] Shirley Chaidez PA-C 03/11/2025 Telephone [facility] Neurology Ophthalmology [address] [address] Yary Whitten DO Medical Complaint from Last [...] & B BLUE CROSS COMPREHENSIVE Care Teams Assurance Specialist Relationship Specialty Start Date End Date Caitlyn Bowie MD [address] [place] [address] PCP - General Internal Medicine 03/20/23
--- OUTSIDE RECORDS SUMMARY | 2025-03-28 11:50 | XMS_ITS | Encounter Summary ---
Author Organization [facility] Address [address] [place] [address] Care Team Providers Care Distributor Of Directories Name Role Phone Caitlyn Bowie MD Primary Care Provider +1- [phone] Encounter Details Date Type Department Care Team (Late st Contact Info) Description 06/07/2021 Scanned Document Onco-Oncology Program at [address] [place] [address] Norma Renee MD [address] [place] [address] 2 [place] [address] Social History Tobacco Use Types [...] PM EDT Telemedicine Cancer Center at [address] [place], [place] [phone] Ronald Mills MD 240 [facility] A1 [place] [address] documented as of this encounter Visit Diagnoses Not on filedocumented in this encounter Additional Health Concerns Infection Onset Date Last Indicated Resolved Time COVID-19 03/05/2022 03/05/2022 03/15/2022 7:18 PM EDT Assessment Noted Time PHQ-9 Depression Total Score: 2 11/07/19 19 2:06 PM EDT documented as of this encounter Care Teams Distributor Of Directories Relationship Specialty Start Date End Date Caitlyn Bowie MD [address] [address] PCP - General Internal Medicine 05/06/21 documented as of this encounter
--- OUTSIDE RECORDS SUMMARY | 2025-03-28 11:50 | XMS_ITS | Encounter Summary ---
Author Organization [facility] Address [address] [place] [address] Care Team Providers Care Skein Dyer Name Role Phone Caitlyn Bowie MD Primary Care Provider +1- [phone] Encounter Details Date Type Department Care Team (Late st Contact Info) Description 06/26/2018 Scanned Document [facility] Health Information Management [address] [place] [address] External, Provider Social History Tobacco Use Types [...] [facility] 240 [facility] Building [address] [place], [place] [address] Ronald Mills MD [address] [place] [address] [address]1 [place] [address] documented as of this encounter Visit Diagnoses Not on filedocumented in this encounter Additional Health Concerns Infection Onset Date Last Indicated Resolved Time COVID-19 03/05/2022 03/05/2022 03/15/2022 7:18 PM EDT documented as of this encounter Care Teams Skein Dyer Relationship Specialty Start Date End Date Caitlyn Bowie MD 3400 [facility] 1 [place] [address] PCP - General Internal Medicine 05/06/21 Henry Kelly MD Pulmonary Department 175 [facility], [address] [place] [address] Physician Pulmonary Disease 09/06/17 06/22/20 documented as of this encounter
--- OUTSIDE RECORDS SUMMARY | 2025-03-28 11:50 | XMS_ITS | Encounter Summary ---
Author Organization [facility] and [facility] Address [address] [place] [address] Care Team Providers Care Lining Marker Name Role Phone Caitlyn Bowie MD Primary Care Provider +1- [phone] Encounter Details Date Type Department Care Team (Late st Contact Info) Description 03/14/2018 Scanned Document [facility] Health Information Management [address] [place] [address] External, Provider Social History Tobacco Use Types [...] [facility] 240 [facility] Building [address] [place], [place] [address] Ronald Mills MD [address] [place] [address] [address]1 [place] [address] documented as of this encounter [...] as of this encounter Care Teams Lining Marker Relationship Specialty Start Date End Date Caitlyn Bowie MD 3400 [facility] 1 [place] [address] PCP - General Internal Medicine 05/06/21 Henry Kelly MD Pulmonary Department 175 [facility], [address] [place] [address] Physician Pulmonary Disease 09/06/17 06/22/20 documented as of this encounter
--- OUTSIDE RECORDS SUMMARY | 2025-03-28 11:50 | XMS_ITS | Encounter Summary ---
Author Organization [facility] Address [address] [place] [address] Care Team Providers Care Clinical Pathologist Name Role Phone Caitlyn Bowie MD Primary Care Provider +1- [phone] Encounter Details Date Type Department Care Team (Late st Contact Info) Description 12/28/2021 Scanned Document INTERFACE DEFAULT [address] [place] [address] System, Provider Not In Social History Tobacco [...] [facility] 240 [facility] Building [address] [place] [address] Ronald Mills MD [address] [place] [address] [address] [place] [address] documented as of this encounter Visit Diagnoses Not on filedocumented in this encounter Additional Health Concerns Infection Onset Date Last Indicated Resolved Time COVID-19 03/05/2022 03/05/2022 03/15/2022 7:18 PM EDT Assessment Noted Time PHQ-9 Depression Total Score: 2 11/07/19 19 2:06 PM EDT documented as of this encounter Care Teams Clinical Pathologist Relationship Specialty Start Date End Date Caitlyn Bowie MD [address] [address] PCP - General Internal Medicine 05/06/21 documented as of this encounter
--- OUTSIDE RECORDS SUMMARY | 2025-03-28 11:50 | XMS_ITS | Encounter Summary ---
Author Organization [facility] Address [address] [place] [address] Care Team Providers Care Air Traffic Systems Technician Name Role Phone Caitlyn Bowie MD Primary Care Provider +1- [phone] Encounter Details Date Type Department Care Team (Late st Contact Info) Description 10/15/2018 Scanned Document [facility] Health Information Management [address] [place] [address] External, Provider Social History Tobacco Use Types [...] [facility] 240 [facility] Building [address] [place], [place] [phone] Ronald Mills MD [address] [place] [address] [address] [place] [address] documented as of this encounter Visit Diagnoses Not on filedocumented in this encounter Additional Health Concerns Infection Onset Date Last Indicated Resolved Time COVID-19 03/05/2022 03/05/2022 03/15/2022 7:18 PM EDT documented as of this encounter Care Teams Air Traffic Systems Technician Relationship Specialty Start Date End Date Caitlyn Bowie MD 3400 [facility] 1 [place] [address] PCP - General Internal Medicine 05/06/21 Henry Kelly MD Pulmonary Department 175 [facility], [address] [place] [address] Physician Pulmonary Disease 09/06/17 06/22/20 documented as of this encounter
--- OUTSIDE RECORDS SUMMARY | 2025-03-28 11:50 | XMS_ITS | Encounter Summary ---
Author Organization [facility] Address [address] [place] [address] Care Team Providers Care Procurement Engineer Name Role Phone Caitlyn Bowie MD Primary Care Provider +1- [phone] Encounter Details Date Type Department Care Team (Late st Contact Info) Description 05/27/2021 Telephone [facility] at [address] [address] Ronald Mills MD [address] [place] [address] Social History Tobacco Use Types Packs/Day [...] [facility] 240 [facility] [address] [place], [place] [address] Ronald Mills MD 240 [facility] Max [address] [place] [address] documented as of this encounter Visit Diagnoses Not on filedocumented in this encounter Additional Health Concerns Infection Onset Date Last Indicated Resolved Time COVID-19 03/05/2022 03/05/2022 03/15/2022 7:18 PM EDT Assessment Noted Time PHQ-9 Depression Total Score: 2 11/07/19 19 2:06 PM EDT documented as of this encounter Care Teams Procurement Engineer Relationship Specialty Start Date End Date Caitlyn Bowie MD [address] [address] PCP - General Internal Medicine 05/06/21 documented as of this encounter
--- OUTSIDE RECORDS SUMMARY | 2025-03-28 11:50 | XMS_ITS | Encounter Summary ---
Author Organization [facility] and [facility] Address [address] [place] [address] Care Team Providers Care Panel Sewer Name Role Phone Caitlyn Bowie MD Primary Care Provider +1- [phone] Encounter Details Date Type Department Care Team (Late Contact Info) Description 10/29/2021 Scanned Document [facility] Health Information Management [address] [place] [address] External, Provider Social History Tobacco Use Types [...] [facility] 240 [facility] Building [address] [place], [place] [phone] Ronald Mills MD [address] [place] [address] [address] [place] [address] documented as of [...] documented as of this encounter Care Teams Panel Sewer Relationship Specialty Start Date End Date Caitlyn Bowie MD [address] [address] PCP - General Internal Medicine 05/06/21 documented as of this encounter
--- OUTSIDE RECORDS SUMMARY | 2025-03-28 11:50 | XMS_ITS | Encounter Summary ---
Author Organization [facility] Address [address] [place] [address] Care Team Providers Care Bean Picker Machine Operator Name Role Phone Caitlyn Bowie MD Primary Care Provider +1- [phone] Encounter Details Date Type Department Care Team (Late st Contact Info) Description 04/29/2021 Scanned Document INTERFACE DEFAULT [address] [place] [address] System, Provider Not In Social History Tobacco [...] [facility] [address] [facility] Building [address] [place] [address] Ronald Mills MD [address] [place] [address] [address] [place] [address] documented as of this encounter [...] documented as of this encounter Care Teams Bean Picker Machine Operator Relationship Specialty Start Date End Date Caitlyn Bowie MD [address] [address] PCP - General Internal Medicine 05/06/21 documented as of this encounter
--- OUTSIDE RECORDS SUMMARY | 2025-03-28 11:50 | XMS_ITS | Encounter Summary ---
Author Organization [facility] Address [address] [place] [address] Care Team Providers Care Hospital Receptionist Name Role Phone Caitlyn Bowie MD Primary Care Provider +1- [phone] Reason for Visit * Reason Comments FYI Encounter Details Date Type Department Care Team (Late st Contact Info) Description 05/24/2021 Telephone [facility] Thor[facility] On[facility] at [facility] at [address] [place] [address] [address] [place], [place] [phone] Solo Henry MD [address] [place] [phone] FYI Social History Tobacco Use Types [...] [facility] 240 [facility] Building [address] [place] [address] Ronald Mills MD 240 [facility] Max [address] [place] [address] documented as of this encounter Visit Diagnoses Not on filedocumented in this encounter Additional Health Concerns Infection Onset Date Last Indicated Resolved Time COVID-19 03/05/2022 03/05/2022 03/15/2022 7:18 PM EDT Assessment Noted Time PHQ-9 Depression Total Score: 2 11/07/19 19 2:06 PM EDT documented as of this encounter Care Teams Hospital Receptionist Relationship Specialty Start Date End Date Caitlyn Bowie MD 3400 [facility] 1 [place] [address] PCP - General Internal Medicine 05/06/21 documented as of this encounter
--- OUTSIDE RECORDS SUMMARY | 2025-03-28 11:50 | XMS_ITS | Encounter Summary ---
Author Organization [facility] and [facility] Address [address] [place] [address] Care Team Providers Care Mine Inspector Name Role Phone Caitlyn Bowie MD Primary Care Provider +1- [phone] Encounter Details Date Type Department Care Team (Late st Contact Info) Description 09/07/2021 Scanned Document INTERFACE DEFAULT [address] [place] [address] System, Provider Not In Social History Tobacco [...] [facility] 240 [facility] Building [address] [place], [place] [phone] Ronald Mills MD [address] [place] [address] [address] [place] [address] documented as of this encounter [...] End Date Caitlyn Bowie MD [address] [address] PCP - General Internal Medicine 05/06/21 documented as of this encounter
--- OUTSIDE RECORDS SUMMARY | 2025-03-28 11:50 | XMS_ITS | Encounter Summary ---
Author Organization [facility] and [facility] Address [address] [place] [address] Care Team Providers Care Crossbar Frame Wirer Name Role Phone Caitlyn Bowie MD Primary Care Provider +1- [phone] Encounter Details Date Type Department Care Team (Late st Contact Info) Description 09/24/2021 Scanned Document INTERFACE DEFAULT [address] [place] [address] System, Provider Not In Social History Tobacco [...] Center at [facility] 240 [facility] Building [address] [place] [address] Ronald Mills MD [address] [place] [address] [address] [place] [address] documented [...] documented as of this encounter Care Teams Crossbar Frame Wirer Relationship Specialty Start Date End Date Caitlyn Bowie MD [facility] [address] [address] PCP - General Internal Medicine 05/06/21 documented as of this encounter
--- OUTSIDE RECORDS SUMMARY | 2025-03-28 11:50 | XMS_ITS | Encounter Summary ---
Author Organization [facility] Address [address] [place] [address] Phone Care Team Providers Care Woolen Tester Name Role Phone Caitlyn Bowie MD Primary Care Provider +1- [phone] Encounter Details Date Type Department Care Team (Late Contact Info) Description 03/17/2025 Documentation Only [facility] [address] [place] [address] Marina Abdi [address] [place] [address] Social History Tobacco Use Types [...] [facility] [address] [place] [address] Rubén Ashraf MD [address] [place] [address] [place] [address] documented as of this encounter Visit Diagnoses Not on filedocumented in this encounter Care Teams Woolen Tester Relationship Specialty Start Date End Date Caitlyn Bowie MD [address] [place], [place] PCP - General Internal Medicine 09/24/24 documented as of this encounter
--- OUTSIDE RECORDS SUMMARY | 2025-03-28 11:50 | XMS_ITS | Encounter Summary ---
Author Organization [facility] and [facility] [place] [facility] Address [address] [place] [address] Care Team Providers Care Sheet Metal Erector Name Role Phone Caitlyn Bowie MD Primary Care Provider +1- [phone] Encounter Details Date Type Department Care Team (Late st Contact Info) Description 07/26/2018 Scanned Document [facility] Health Information Management [address] [place] [address] External, Provider Social History Tobacco Use Types [...] [facility] [address] [place], [place] [phone] Ronald Mills MD 240 [facility] [address]1 [place] [address] documented as of this encounter [...] of this encounter Care Teams Sheet Metal Erector Relationship Specialty Start Date End Date Caitlyn Bowie MD 3400 [facility] 1 [place] [address] PCP - General Internal Medicine 05/06/21 Henry Kelly MD Pulmonary Department 175 [facility], [address] [place] [address] Physician Pulmonary Disease 09/06/17 06/22/20 documented as of this encounter
--- OUTSIDE RECORDS SUMMARY | 2025-03-28 11:50 | XMS_ITS | Encounter Summary ---
Author Organization [facility] and [facility] Address [address] [place] [address] Care Team Providers Care Senior Php Web Developer Name Role Phone Caitlyn Bowie MD Primary Care Provider +1- [phone] Encounter Details Date Type Department Care Team (Late st Contact Info) Description 04/27/2021 Scanned Document INTERFACE DEFAULT [address] [place] [address] System, Provider Not In Social History Tobacco [...] [facility] 240 [facility] Building [address] [place] [address] Ronlad Mills MD [address] [place] [address] [address] [place] [address] documented as of this encounter [...] as of this encounter Care Teams Senior Php Web Developer Relationship Specialty Start Date End Date Caitlyn Bowie MD [address] [address] PCP - General Internal Medicine 05/06/21 documented as of this encounter
--- OUTSIDE RECORDS SUMMARY | 2025-03-28 11:50 | XMS_ITS | Encounter Summary ---
Author Organization [facility] and [facility] Address [address] [place] [address] Care Team Providers Care Reforestation Worker Name Role Phone Caitlyn Bowie MD Primary Care Provider +1- [phone] Encounter Details Date Type Department Care Team (Late st Contact Info) Description 06/07/2021 Scanned Document Cancer Center at [address] [address] External, Provider Social History Tobacco Use Types [...] [facility] 240 [facility] Building [address] [place], [place] [address] Ronald Mills MD [address] [place] [address] [address]1 [place] [address] documented as of this encounter Visit Diagnoses Not on filedocumented in this encounter Additional Health Concerns Infection Onset Date Last Indicated Resolved Time COVID-19 03/05/2022 03/05/2022 03/15/2022 7:18 PM EDT Assessment Noted Time PHQ-9 Depression Total Score: 2 11/07/19 19 2:06 PM EDT documented as of this encounter Care Teams Reforestation Worker Relationship Specialty Start Date End Date Caitlyn Bowie MD [address] [address] PCP - General Internal Medicine 05/06/21 documented as of this encounter
--- OUTSIDE RECORDS SUMMARY | 2025-03-28 11:50 | XMS_ITS | Encounter Summary ---
Author Organization [facility] and [facility] Address [address] [place] [address] Care Team Providers Care Plate Conditioner Name Role Phone Caitlyn Bowie MD Primary Care Provider +1- [phone] Encounter Details Date Type Department Care Team (Late st Contact Info) Description 04/26/2021 Scanned Document INTERFACE DEFAULT [address] [place] [address] System, Provider Not In Social History Tobacco [...] [facility] Building [address] [place], [place] [phone] Ronald Mills MD [address] [place] [address] [address] [place] [address] documented as of this encounter [...] as of this encounter Care Teams Plate Conditioner Relationship Specialty Start Date End Date Caitlyn Bowie MD [address] [address] PCP - General Internal Medicine 05/06/21 documented as of this encounter
--- OUTSIDE RECORDS SUMMARY | 2025-03-28 11:50 | XMS_ITS | Encounter Summary ---
Author Organization [facility] and [facility] Address [address] [place] [address] Care Team Providers Care Stockroom Supervisor Name Role Phone Caitlyn Bowie MD Primary Care Provider +1- [phone] Reason for Visit * Reason Comments Advice Only Encounter Details Date Type Department Care Team ([facility] st Contact Info) Description 06/01/2021 Telephone [facility] at [address] [address] Ronald Mills MD [address] [place] [address] Advice Only Social History Tobacco Use [...] added that she's called before and sent Moxtra messages but hasn't received a reply,[phone]. documented in this encounter Plan of Treatment Upcoming Encounters Date Type Department Care Team (Late st Contact Info) Description 04/25/2025 4:00 PM EDT Telemedicine Cancer Center at [facility] 240 [facility] Building [address] [place], [place] [address] Ronald Mills MD 240 [facility] [address] [place] [address] documented as of this encounter Visit Diagnoses [...] Bowie MD 3400 [facility] 1 [place] [address] PCP - General Internal Medicine 05/06/21 documented as of this encounter
--- OUTSIDE RECORDS SUMMARY | 2025-03-28 11:50 | XMS_ITS | Encounter Summary ---
Author Organization [facility] and [facility] Address [address] [place] [address] Care Team Providers Care Director Law Enforcement Name Role Phone Caitlyn Bowie MD Primary Care Provider +1- [phone] Encounter Details Date Type Department Care Team (Late st Contact Info) Description 04/28/2021 Scanned Document INTERFACE DEFAULT [address] [place] [address] System, Provider Not In Social History Tobacco [...] [facility] 240 [facility] Building [address] [place], [place] [phone] Ronald Mills MD [address] [place] [address] [address] [place] [address] documented as of this encounter [...] as of this encounter Care Teams Director Law Enforcement Relationship Specialty Start Date End Date Caitlyn Bowie MD [address] [address] PCP - General Internal Medicine 05/06/21 documented as of this encounter
--- OUTSIDE RECORDS SUMMARY | 2025-03-28 11:50 | XMS_ITS | Encounter Summary ---
Author Organization [facility] and [facility] Address [address] [place] [address] Care Team Providers Care Wardrobe Specialty Worker Name Role Phone Caitlyn Bowie MD Primary Care Provider +1- [phone] Encounter Details Date Type Department Care Team (Late st Contact Info) Description 11/18/2021 Scanned Document [facility] Health Information Management [address] [place] [address] External, Provider Social History Tobacco Use Types [...] [facility] 240 [facility] Building [address] [place], [place] [phone] Ronald Mills MD [address] [place] [address] [address]1 [place] [address] documented as of this encounter Visit Diagnoses Not on filedocumented in this encounter Additional Health Concerns Infection Onset Date Last Indicated Resolved Time COVID-19 03/05/2022 03/05/2022 03/15/2022 7:18 PM EDT Assessment Noted Time PHQ-9 Depression Total Score: 2 11/07/19 19 2:06 PM EDT documented as of this encounter Care Teams Wardrobe Specialty Worker Relationship Specialty Start Date End Date Caitlyn Bowie MD [address] [address] PCP - General Internal Medicine 05/06/21 documented as of this encounter
--- OUTSIDE RECORDS SUMMARY | 2025-03-28 11:50 | XMS_ITS | Encounter Summary ---
Author Organization [facility] and [facility] Address [address] [place] [address] Care Team Providers Care Biodiesel Engineering Manager Name Role Phone Caitlyn Bowie MD Primary Care Provider +1- [phone] Reason for Visit * Reason Comments Advice Only mass Encounter Details Date Type Department Care Team (Late st Contact Info) Description 09/06/2021 Telephone [facility] at [address] [address] Ronald Mills MD [address] [place] [address] Advice Only (mass) Social History Tobacco [...] [facility] 240 [facility] Building [address] [place], [place] [address] Ronald Mills MD 240 [facility] [address] [place] [address] documented as of this encounter Visit Diagnoses Not on filedocumented in this encounter Additional Health Concerns Infection Onset Date Last Indicated Resolved Time COVID-19 03/05/2022 03/05/2022 03/15/2022 7:18 PM EDT Assessment Noted Time PHQ-9 Depression Total Score: 2 11/07/19 19 2:06 PM EDT documented as of this encounter Care Teams Biodiesel Engineering Manager Relationship Specialty Start Date End Date Caitlyn Bowie MD [address] [address] PCP - General Internal Medicine 05/06/21 documented as of this encounter
--- OUTSIDE RECORDS SUMMARY | 2025-03-28 11:50 | XMS_ITS | Encounter Summary ---
Author Organization [facility] and [facility] Address [address] [place] [address] Care Team Providers Care Aquatic Physiotherapist Name Role Phone Caitlyn Bowie MD Primary Care Provider +1- [phone] Encounter Details Date Type Department Care Team (Late st Contact Info) Description 06/07/2021 Scanned Document [facility] Program at [address] [place] [address] Norma Renee MD [address] [place] [address] 2 [place] [address] Social History Tobacco Use Types [...] PM EDT Telemedicine Cancer Center at [address] [place], [place] [phone] Ronald Mills MD 240 [facility] A1 [place] [address] documented as of this encounter Visit Diagnoses Not on filedocumented in this encounter Additional Health Concerns Infection Onset Date Last Indicated Resolved Time COVID-19 03/05/2022 03/05/2022 03/15/2022 7:18 PM EDT Assessment Noted Time PHQ-9 Depression Total Score: 2 11/07/19 19 2:06 PM EDT documented as of this encounter Care Teams Aquatic Physiotherapist Relationship Specialty Start Date End Date Caitlyn Bowie MD [address] [address] PCP - General Internal Medicine 05/06/21 documented as of this encounter
--- OUTSIDE RECORDS SUMMARY | 2025-03-28 11:50 | XMS_ITS | Encounter Summary ---
Author Organization [facility] and [facility] Address [address] [place] [address] Care Team Providers Care Reel Fed Printer Name Role Phone Caitlyn Bowie MD Primary Care Provider +1- [phone] Encounter Details Date Type Department Care Team (Late st Contact Info) Description 04/18/2018 Scanned Document [facility] Health Information Management [address] [place] [address] External, Provider Social History Tobacco Use Types [...] [facility] 240 [facility] Building [address] [place], [place] [phone] Ronald Mills MD [address] [place] [address] [address]1 [place] [address] documented as of this encounter [...] as of this encounter Care Teams Reel Fed Printer Relationship Specialty Start Date End Date Caitlyn Bowie MD 3400 [facility] 1 [place] [address] PCP - General Internal Medicine 05/06/21 Henry Kelly MD Pulmonary Department 175 [facility], [address] [place] [address] Physician Pulmonary Disease 09/06/17 06/22/20 documented as of this encounter
--- OUTSIDE RECORDS SUMMARY | 2025-03-28 11:50 | XMS_ITS | Encounter Summary ---
Author Organization [facility] and [facility] Address [address] [place] [address] Care Team Providers Care [facility] Name Role Phone Caitlyn Bowie MD Primary Care Provider +1- [phone] Encounter Details Date Type Department Care Team (Late st Contact Info) Description 05/05/2021 Scanned Document INTERFACE DEFAULT [address] [place] [address] System, Provider Not In Social History Tobacco [...] [facility] 240 [facility] Building [address] [place] [address] Ronald Mills MD [address] [place] [address] [address] [place] [address] documented as of this encounter Visit Diagnoses Not on filedocumented in this encounter Additional Health Concerns Infection Onset Date Last Indicated Resolved Time COVID-19 03/05/2022 03/05/2022 03/15/2022 7:18 PM EDT Assessment Noted Time PHQ-9 Depression Total Score: 2 11/07/19 19 2:06 PM EDT documented as of this encounter Care Teams [facility] Relationship Specialty Start Date End Date Caitlyn Bowie MD [address] [address] PCP - General Internal Medicine 05/06/21 documented as of this encounter
--- OUTSIDE RECORDS SUMMARY | 2025-03-28 11:50 | XMS_ITS | Encounter Summary ---
Author Organization [facility] and [facility] Address [address] [place] [address] Care Team Providers Care Territory Sales Consultant Name Role Phone Caitlyn Bowie MD Primary Care Provider +1- [phone] Encounter Details Date Type Department Care Team (Late st Contact Info) Description 09/09/2021 Scanned Document INTERFACE DEFAULT [address] [place] [address] System, Provider Not In Social History Tobacco [...] [facility] 240 [facility] Building [address] [place] [address] Ronald Mills MD [address] [place] [address] [address] [place] [address] documented as of this encounter Visit Diagnoses Not on filedocumented in this encounter Additional Health Concerns Infection Onset Date Last Indicated Resolved Time COVID-19 03/05/2022 03/05/2022 03/15/2022 7:18 PM EDT Assessment Noted Time PHQ-9 Depression Total Score: 2 11/07/19 19 2:06 PM EDT documented as of this encounter Care Teams Territory Sales Consultant Relationship Specialty Start Date End Date Caitlyn Bowie MD [address] [address] PCP - General Internal Medicine 05/06/21 documented as of this encounter
--- OUTSIDE RECORDS SUMMARY | 2025-03-28 11:50 | XMS_ITS | Encounter Summary ---
Author Organization [facility] and [facility] Address [address] [place] [address] Care Team Providers Care Escort Blind Name Role Phone Caitlyn Bowie MD Primary Care Provider +1- [phone] Encounter Details Date Type Department Care Team (Late st Contact Info) Description 07/28/2018 Scanned Document [facility] Health Information Management [address] [place] [address] External, Provider Social History Tobacco Use Types [...] [facility] [address] [facility] Building [address] [place], [place] [address] Ronald Mills MD 240 [facility] A1 [place] [address] documented as of [...] documented as of this encounter Care Teams Escort Blind Relationship Specialty Start Date End Date Caitlyn Bowie MD [facility] 1 [place] [address] PCP - General Internal Medicine 05/06/21 Henry Kelly MD Pulmonary Department 175 [facility], [address] [place] [address] Physician Pulmonary Disease 09/06/17 06/22/20 documented as of this encounter
--- OUTSIDE RECORDS SUMMARY | 2025-03-28 11:50 | XMS_ITS | Encounter Summary ---
Author Organization [facility] and [facility] Address [address] [place] [address] Care Team Providers Care Car Tracer Name Role Phone Caitlyn Bowie MD Primary Care Provider +1- [phone] Encounter Details Date Type Department Care Team (Late st Contact Info) Description 08/07/2018 Scanned Document [facility] Health Information Management [address] [place] [address] External, Provider Social History Tobacco Use Types [...] at [facility] 240 [facility] Building [address] [place], [place] [address] Ronald Mills MD [address] [place] [address] [address]1 [place] [address] documented as of this encounter Visit Diagnoses Not on filedocumented in this encounter Additional Health Concerns Infection Onset Date Last Indicated Resolved Time COVID-19 03/05/2022 03/05/2022 03/15/2022 7:18 PM EDT documented as of this encounter Care Teams Car Tracer Relationship Specialty Start Date End Date Caitlyn Bowie MD 3400 [facility] 1 [place] [address] PCP - General Internal Medicine 05/06/21 Henry Kelly MD Pulmonary Department 175 [facility], [address] [place] [address] Physician Pulmonary Disease 09/06/17 06/22/20 documented as of this encounter
--- OUTSIDE RECORDS SUMMARY | 2025-03-28 11:50 | XMS_ITS | Encounter Summary ---
Author Organization [facility] and [facility] Address [address] [place] [address] Care Team Providers Care Tester Semiconductor Packages Name Role Phone Caitlyn Bowie MD Primary Care Provider +1- [phone] Encounter Details Date Type Department Care Team (Late st Contact Info) Description 04/24/2021 Scanned Document INTERFACE DEFAULT [address] [place] [address] System, Provider Not In Social History Tobacco [...] [facility] 240 [facility] Building [address] [place], [place] [address] Ronald Mills MD [address] [place] [address] [address] [place] [address] documented as of this encounter [...] as of this encounter Care Teams Tester Semiconductor Packages Relationship Specialty Start Date End Date Caitlyn Bowie MD [address] [place] [address] [address] PCP - General Internal Medicine 05/06/21 documented as of this encounter
--- OUTSIDE RECORDS SUMMARY | 2025-03-28 11:50 | XMS_ITS | Encounter Summary ---
Author Organization [facility] and [facility] Address 20 [place] [address] Care Team Providers Care Box Hinge And Lock Attacher Name Role Phone Caitlyn Bowie MD Primary Care Provider +1- [phone] Encounter Details Date Type Department Care Team (Late st Contact Info) Description 04/03/2018 Scanned Document [facility] [address] [place] [address] Provider, historical . Social History Tobacco Use [...] [facility] 240 [facility] Building [address] [place], [place] [address] Ronald Mills MD [address] [place] [address] [address] [place] [address] documented as [...] as of this encounter Care Teams Box Hinge And Lock Attacher Relationship Specialty Start Date End Date Caitlyn oBwie MD 3400 [facility] 1 [place] [address] PCP - General Internal Medicine 05/06/21 Henry Kelly MD Pulmonary Department 175 [facility], [address] [place] [address] Physician Pulmonary Disease 09/06/17 06/22/20 documented as of this encounter
--- OUTSIDE RECORDS SUMMARY | 2025-03-28 11:50 | XMS_ITS | Encounter Summary ---
Author Organization [facility] and [facility] Address 20 [place] [address] Care Team Providers Care Petroleum Plant Operator Name Role Phone Caitlyn Bowie MD Primary Care Provider +1- [phone] Encounter Details Date Type Department Care Team (Late st Contact Info) Description 05/17/2021 Scanned Document Cancer Center at [address] [address] External, Provider Social History Tobacco Use Types [...] [facility] 240 [facility] Building [address] [place], [place] [address] Ronald Mlils MD [address] [place] [address] [address]1 [place] [address] documented as of this encounter [...] as of this encounter Care Teams Petroleum Plant Operator Relationship Specialty Start Date End Date Caitlyn Bowie MD [address] [address] PCP - General Internal Medicine 05/06/21 documented as of this encounter
--- OUTSIDE RECORDS SUMMARY | 2025-03-28 11:50 | XMS_ITS | Encounter Summary ---
Author Organization [facility] and [facility] Address [address] [place] [address] Care Team Providers Care Ruby On Rails Web Developer Name Role Phone Caitlyn Bowie MD Primary Care Provider +1- [phone] Encounter Details Date Type Department Care Team (Late st Contact Info) Description 11/19/2021 Scanned Document Cardiovascular Medicine at [address] [place] [address] Norma Renee MD [address] [place] [address] Social History Tobacco Use Types Packs/Day [...] PM EDT Telemedicine Cancer Center at [address] [place] [address] Ronald Mills MD 240 [facility] A1 [place] [address] documented as of this encounter Visit Diagnoses Not on filedocumented in this encounter Additional Health Concerns Infection Onset Date Last Indicated Resolved Time COVID-19 03/05/2022 03/05/2022 03/15/2022 7:18 PM EDT Assessment Noted Time PHQ-9 Depression Total Score: 2 11/07/19 19 2:06 PM EDT documented as of this encounter Care Teams Ruby On Rails Web Developer Relationship Specialty Start Date End Date Caitlyn Bowie MD [address] [address] PCP - General Internal Medicine 05/06/21 documented as of this encounter
--- OUTSIDE RECORDS SUMMARY | 2025-03-28 11:50 | XMS_ITS | Encounter Summary ---
Author Organization [facility] and [facility] Address [address] [place] [address] Care Team Providers Care Culled Fruit Packer Name Role Phone Caitlyn Bowie MD Primary Care Provider +1- [phone] Encounter Details Date Type Department Care Team (Late st Contact Info) Description 09/23/2021 Scanned Document INTERFACE DEFAULT [address] [place] [address] System, Provider Not In Social History Tobacco [...] [facility] 240 [facility] Building [address] [place], [place] [address] Ronald Mills MD [address] [place] [address] [address] [place] [address] documented as of this encounter [...] documented as of this encounter Care Teams Culled Fruit Packer Relationship Specialty Start Date End Date Caitlyn Bowie MD [address] [address] PCP - General Internal Medicine 05/06/21 documented as of this encounter
--- OUTSIDE RECORDS SUMMARY | 2025-03-28 11:50 | XMS_ITS | Encounter Summary ---
Author Organization [facility] and [facility] Address [address] [place] [address] Care Team Providers Care Laborer Tree Tapping Name Role Phone Caitlyn Bowie MD Primary Care Provider +1- [phone] Encounter Details Date Type Department Care Team (Late st Contact Info) Description 06/08/2021 Scanned Document INTERFACE DEFAULT [address] [place] [address] System, Provider Not In Social History Tobacco [...] [facility] at [facility] 240 [facility] Building [address] [place], [place] [address] Ronald Mills MD [address] [place] [address] [address]1 [place] [address] documented as of this encounter [...] as of this encounter Care Teams Laborer Tree Tapping Relationship Specialty Start Date End Date Caitlyn Bowie MD [address] [place] [address] PCP - General Internal Medicine 05/06/21 documented as of this encounter
--- OUTSIDE RECORDS SUMMARY | 2025-03-28 11:50 | XMS_ITS | Encounter Summary ---
Author Organization [facility] and [facility] Address [address] [place] [address] Care Team Providers Care Sausage Wrapper Name Role Phone Caitlyn Bowie MD Primary Care Provider +1- [phone] Encounter Details Date Type Department Care Team (Late st Contact Info) Description 07/30/2018 Scanned Document [facility] Health Information Management [address] [place] [address] External, Provider Social History Tobacco Use Types [...] [facility] 240 [facility] Building [address] [place], [place] [phone] Ronald Mills MD [address] [place] [place] [address] [address]1 [place] [address] documented as of this encounter [...] documented as of this encounter Care Teams Sausage Wrapper Relationship Specialty Start Date End Date Caitlyn Bowie MD [facility] 1 [place] [address] PCP - General Internal Medicine 05/06/21 Henry Kelly MD Pulmonary Department 175 [facility], [address] [place] [address] Physician Pulmonary Disease 09/06/17 06/22/20 documented as of this encounter
--- OUTSIDE RECORDS SUMMARY | 2025-03-28 11:50 | XMS_ITS | Encounter Summary ---
Author Organization [facility] and [facility] Address [address] [place] [address] Care Team Providers Care Outside Installation Machinist Name Role Phone Caitlyn Bowie MD Primary Care Provider +1- [phone] Reason for Visit * Reason Comments Triage Encounter Details Date Type Department Care Team (Late st Contact Info) Description 10/18/2021 Telephone [facility] at [address] - [address] [phone] Ronald Mills MD [address] [place] [phone] Triage Social History Tobacco Use Types [...] [facility] 240 [facility] Building [address] [place], [place] [address] Ronald Mills MD 240 [facility] [address] [place] [phone] documented as of this encounter Visit Diagnoses Not on filedocumented in this encounter Additional Health Concerns Infection Onset Date Last Indicated Resolved Time COVID-19 03/05/2022 03/05/2022 03/15/2022 7:18 PM EDT Assessment Noted Time PHQ-9 Depression Total Score: 2 11/07/19 19 2:06 PM EDT documented as of this encounter Care Teams Outside Installation Machinist Relationship Specialty Start Date End Date Caitlyn Bowie MD [address] [address] PCP - General Internal Medicine 05/06/21 documented as of this encounter
--- OUTSIDE RECORDS SUMMARY | 2025-03-28 11:50 | XMS_ITS | Encounter Summary ---
Author Organization [facility] and [facility] Address [address] [place] [address] Care Team Providers Care Compensation Director Name Role Phone Caitlyn Bowie MD Primary Care Provider +1- [phone] Encounter Details Date Type Department Care Team (Late st Contact Info) Description 11/18/2021 Scanned Document INTERFACE DEFAULT [address] [place] [address] System, Provider Not In Social History [...] [facility] 240 [facility] [address] [place] [address] Ronald Mills MD [address] [place] [address] [address] [place] [address] documented as of this encounter Visit Diagnoses Not on filedocumented in this encounter Additional Health Concerns Infection Onset Date Last Indicated Resolved Time COVID-19 03/05/2022 03/05/2022 03/15/2022 7:18 PM EDT Assessment Noted Time PHQ-9 Depression Total Score: 2 11/07/19 19 2:06 PM EDT documented as of this encounter Care Teams Compensation Director Relationship Specialty Start Date End Date Caitlyn Bowie MD [address] [address] PCP - General Internal Medicine 05/06/21 documented as of this encounter
--- OUTSIDE RECORDS SUMMARY | 2025-03-28 11:50 | XMS_ITS | Encounter Summary ---
Author Organization [facility] and [facility] Address [address] [place] [address] Care Team Providers Care In Home Tutor Name Role Phone Caitlyn Bowie MD Primary Care Provider +1- [phone] Encounter Details Date Type Department Care Team (Late st Contact Info) Description 09/10/2021 Scanned Document Cardiovascular Medicine at [address] [place] [phone] Norma Renee MD [address] [place] [phone] Social History Tobacco Use Types Packs/Day Years [...] PM EDT Telemedicine Cancer Center at [address] [place] [address] Ronald Mills MD [address] [place] [address] [address] [place] [address] documented as of this encounter Visit Diagnoses Not on filedocumented in this encounter Additional Health Concerns Infection Onset Date Last Indicated Resolved Time COVID-19 03/05/2022 03/05/2022 03/15/2022 7:18 PM EDT Assessment Noted Time PHQ-9 Depression Total Score: 2 11/07/19 19 2:06 PM EDT documented as of this encounter Care Teams In Home Tutor Relationship Specialty Start Date End Date Caitlyn Bowie MD [address] [address] PCP - General Internal Medicine 05/06/21 documented as of this encounter
--- OUTSIDE RECORDS SUMMARY | 2025-03-28 11:51 | XMS_ITS | Encounter Summary ---
Author Organization [facility] and [facility] Address 20 [place] [address] Care Team Providers Care Car Hiker Name Role Phone Caitlyn Bowie MD Primary Care Provider +1- [phone] Encounter Details Date Type Department Care Team (Late st Contact Info) Description 01/31/2023 Abstract [facility] Melanoma Surgery 35 [facility]8 [place] [address] Shilpi Romero, AVELINO Social History Tobacco Use [...] at [facility] 240 [facility] Building [address] [place] [address] Ronald Mills MD [address] [place] [address] [address]1 [place] [address] documented as of this encounter Visit Diagnoses Not on filedocumented in this encounter Additional Health Concerns Assessment Noted Time PHQ-9 Depression Total Score: 2 11/07/19 19 2:06 PM EDT documented as of this encounter Care Teams Car Hiker Relationship Specialty Start Date End Date Caitlyn Bowie MD [address] [address] PCP - General Internal Medicine 05/06/21 documented as of this encounter
--- OUTSIDE RECORDS SUMMARY | 2025-03-28 11:51 | XMS_ITS | Encounter Summary ---
Author Organization [facility] and [facility] Address [address] [place] [address] Care Team Providers Care Boxing Promoter Name Role Phone Caitlyn Bowie MD Primary Care Provider +1- [phone] Encounter Details Date Type Department Care Team (Late st Contact Info) Description 05/16/2023 Scanned Document INTERFACE DEFAULT [address] [place] [address] System, Provider Not In Social History Tobacco [...] [facility] Building [address] [place], [place] [phone] Ronald Mills MD [address] [place] [address] [address] [place] [address] documented as of this encounter [...] documented as of this encounter Care Teams Boxing Promoter Relationship Specialty Start Date End Date Caitlyn Bowie MD [address] [address] PCP - General Internal Medicine 05/06/21 documented as of this encounter
--- OUTSIDE RECORDS SUMMARY | 2025-03-28 11:51 | XMS_ITS | Encounter Summary ---
Author Organization [facility] and [facility] Address [address] [place] [address] Care Team Providers Care Automobile Travel Club Counselor Name Role Phone Caitlyn Bowie MD Primary Care Provider +1- [phone] Encounter Details Date Type Department Care Team (Late st Contact Info) Description 06/21/2022 Scanned Document INTERFACE DEFAULT [address] [place] [address] System, Provider Not In Social History Tobacco [...] [facility] 240 [facility] Building [address] [place], [place] [phone] Ronald Mills MD [address] [place] [address] [address] [place] [address] documented as of this encounter [...] as of this encounter Care Teams Automobile Travel Club Counselor Relationship Specialty Start Date End Date Caitlyn Bowie MD [address] [address] PCP - General Internal Medicine 05/06/21 documented as of this encounter
--- OUTSIDE RECORDS SUMMARY | 2025-03-28 11:51 | XMS_ITS | Encounter Summary ---
Author Organization [facility] and [facility] Address [address] [place] [address] Care Team Providers Care Psychology Physician Name Role Phone Caitlyn Bowie MD Primary Care Provider +1- [phone] Encounter Details Date Type Department Care Team (Late st Contact Info) Description 04/22/2022 Scanned Document INTERFACE DEFAULT [address] [place] [address] System, Provider Not In Social History Tobacco [...] [facility] Building [address] [place], [place] [phone] Ronald Mills MD [address] [place] [address] [address] [place] [address] documented as of this encounter [...] documented as of this encounter Care Teams Psychology Physician Relationship Specialty Start Date End Date Caitlyn Bowie MD [address] [address] PCP - General Internal Medicine 05/06/21 documented as of this encounter
--- OUTSIDE RECORDS SUMMARY | 2025-03-28 11:51 | XMS_ITS | Encounter Summary ---
Author Organization [facility] Address [address] [place] [address] Care Team Providers Care Supervisor Metal Fabricating Name Role Phone Pcp, No Primary Care Provider Brennan Mario MD Primary Care Provider [phone] Caitlyn Bowie MD Primary Care Provider +1- [phone] Encounter Details Date Type Department Care Team (Late st Contact Info) Description 01/04/2022 Scanned Document [facility] Neurology Ophthalmology [address] [address] Yary Whitten DO [address] [place] [address] Social History Tobacco Use Types Packs/Day [...] in this encounter Care Teams Supervisor Metal Fabricating Relationship Specialty Start Date End Date Pcp, No PCP - General General Medicine 10/04/21 07/18/22 Brennan Burnett MD [address] [place] [address] PCP - General 07/19/22 03/19/23 Ciatlyn Bowie MD 3400 [place] [address] PCP - General Internal Medicine 03/20/23 documented as of this encounter
--- OUTSIDE RECORDS SUMMARY | 2025-03-28 11:51 | XMS_ITS | Encounter Summary ---
Author Organization [facility] and [facility] Address [address] [place] [address] Care Team Providers Care Invoice Checker Name Role Phone Caitlyn Bowie MD Primary Care Provider +1- [phone] Encounter Details Date Type Department Care Team (Late st Contact Info) Description 12/23/2022 Scanned Document INTERFACE DEFAULT [address] [place] [address] System, Provider Not In Social History Tobacco [...] [facility] 240 [facility] Building [address] [place] [address] Ronald Mills MD [address] [place] [address] [address]1 [place] [address] documented as of this encounter Visit Diagnoses Not on filedocumented in this encounter Additional Health Concerns Assessment Noted Time PHQ-9 Depression Total Score: 2 11/07/19 19 2:06 PM EDT documented as of this encounter Care Teams Invoice Checker Relationship Specialty Start Date End Date Caitlyn Bowie MD [address] [address] PCP - General Internal Medicine 05/06/21 documented as of this encounter
--- OUTSIDE RECORDS SUMMARY | 2025-03-28 11:51 | XMS_ITS | Encounter Summary ---
Author Organization [facility] and [facility] Address [address] [place] [address] Care Team Providers Care Iron Caster Name Role Phone Caitlyn Bowie MD Primary Care Provider +1- [phone] Encounter Details Date Type Department Care Team (Late st Contact Info) Description 09/09/2015 Scanned Document [facility] Health Information Management [address] [place] [address] External, Provider Social History Tobacco Use Types [...] [facility] Building [address] [place], [place] [phone] Ronald Mills MD 240 [facility] [address] [place] [address] documented as of this encounter Procedures Procedure Name Priority Date/Time Associated Diagnosis Comments LAB SCAN Routine 09/09/2015 documented in this encounter Results * Lab Scan (09/09/2015) Blood specimen (specimen) us Provider External LAB BLOOD ORDERABLES Final Res ult [facility] documented in this encounter Visit Diagnoses Not on filedocumented in this encounter Additional Health Concerns Infection Onset Date Last Indicated Resolved Time COVID-19 03/05/2022 03/05/2022 03/15/2022 7:18 PM EDT documented as of this encounter Care Teams Iron Caster Relationship Specialty Start Date End Date Caitlyn Bowie MD 3400 [facility] 1 [place] [address] PCP - General Internal Medicine 05/06/21 Henry Kelly MD Pulmonary Department 175 [facility], [address] [place] [address] Physician Pulmonary Disease 09/06/17 06/22/20 documented as of this encounter
--- OUTSIDE RECORDS SUMMARY | 2025-03-28 11:51 | XMS_ITS | Encounter Summary ---
Author Organization [facility] and [facility] Address [address] [place] [address] Care Team Providers Care Sheet Metal Lay Out Worker Name Role Phone Caitlyn Bowie MD Primary Care Provider +1- [phone] Encounter Details Date Type Department Care Team (Late st Contact Info) Description 07/28/2022 Scanned Document Onco-Oncology Program at [address] [place] [address] Norma Renee MD [address] [place] [address] [address] [place] [address] Social History Tobacco Use Types [...] 4:00 PM EDT Telemedicine Cancer Center at [address] [place], [place] [address] Ronald Mills MD 240 [facility] A1 [place] [address] documented as of this encounter Visit Diagnoses Not on filedocumented in this encounter Additional Health Concerns Assessment Noted Time PHQ-9 Depression Total Score: 2 11/07/19 19 2:06 PM EDT documented as of this encounter Care Teams Sheet Metal Lay Out Worker Relationship Specialty Start Date End Date Caitlyn Bowie MD [address] [address] PCP - General Internal Medicine 05/06/21 documented as of this encounter
--- OUTSIDE RECORDS SUMMARY | 2025-03-28 11:51 | XMS_ITS | Encounter Summary ---
Author Organization [facility] and [facility] Address [address] [place] [address] Care Team Providers Care Pet Care Assistant Name Role Phone Caitlyn Bowie MD Primary Care Provider +1- [phone] Encounter Details Date Type Department Care Team (Late st Contact Info) Description 05/04/2022 Scanned Document INTERFACE DEFAULT [address] [place] [address] System, Provider Not In Social History Tobacco [...] at [facility] 240 [facility] Building [address] [place] [address] Ronald Mills MD [address] [place] [address] [address] [place] [address] documented as of this encounter Visit Diagnoses Not on filedocumented in this encounter Additional Health Concerns Assessment Noted Time PHQ-9 Depression Total Score: 2 11/07/19 19 2:06 PM EDT documented as of this encounter Care Teams Pet Care Assistant Relationship Specialty Start Date End Date Caitlyn Bowie MD [address] [address] PCP - General Internal Medicine 05/06/21 documented as of this encounter
--- OUTSIDE RECORDS SUMMARY | 2025-03-28 11:51 | XMS_ITS | Encounter Summary ---
Author Organization [facility] and [facility] Address [address] [place] [address] Care Team Providers Care Saw Straightener Name Role Phone Caitlyn Bowie MD Primary Care Provider +1- [phone] Encounter Details Date Type Department Care Team (Late st Contact Info) Description 06/08/2022 Scanned Document INTERFACE DEFAULT [address] [place] [address] System, Provider Not In Social History [...] Center at [facility] 240 [facility] [address] [place], [place] [address] Ronald Mills MD [address] [place] [address] [address] [place] [address] documented as of this encounter [...] as of this encounter Care Teams Saw Straightener Relationship Specialty Start Date End Date Caitlyn Bowie MD [address] [address] PCP - General Internal Medicine 05/06/21 documented as of this encounter
--- OUTSIDE RECORDS SUMMARY | 2025-03-28 11:51 | XMS_ITS | Encounter Summary ---
Author Organization [facility] and [facility] Address 20 [place] [address] Care Team Providers Care Supply Chain Analyst Name Role Phone Caitlyn Bowie MD Primary Care Provider +1- [phone] Encounter Details Date Type Department Care Team (Late st Contact Info) Description 07/08/2022 Scanned Document Cardiovascular Medicine at [address] [place] [address] Norma Renee MD [address] [place] [phone] Social History Tobacco Use Types Packs/Day Years [...] PM EDT Telemedicine Cancer Center at [address] [place] [address] Ronald Mills MD [address] [place] [address] [address]1 [place] [address] documented as of this encounter Visit Diagnoses Not on filedocumented in this encounter Additional Health Concerns Assessment Noted Time PHQ-9 Depression Total Score: 2 11/07/19 19 2:06 PM EDT documented as of this encounter Care Teams Supply Chain Analyst Relationship Specialty Start Date End Date Caitlyn Bowie MD [address] [address] PCP - General Internal Medicine 05/06/21 documented as of this encounter
--- OUTSIDE RECORDS SUMMARY | 2025-03-28 11:51 | XMS_ITS | Encounter Summary ---
Author Organization [facility] and [facility] Address [address] [place] [address] Care Team Providers Care First Front Ventilator Name Role Phone Caitlyn Bowie MD Primary Care Provider +1- [phone] Encounter Details Date Type Department Care Team (Late st Contact Info) Description 07/07/2021 Scanned Document INTERFACE DEFAULT [address] [place] [address] System, Provider Not In Social History Tobacco [...] [facility] 240 [facility] Building [address] [place] [address] Ronald Mills MD [address] [place] [address] [address] [place] [address] documented as of this encounter Visit Diagnoses Not on filedocumented in this encounter Additional Health Concerns Infection Onset Date Last Indicated Resolved Time COVID-19 03/05/2022 03/05/2022 03/15/2022 7:18 PM EDT Assessment Noted Time PHQ-9 Depression Total Score: 2 11/07/19 19 2:06 PM EDT documented as of this encounter Care Teams First Front Ventilator Relationship Specialty Start Date End Date Caitlyn Bowie MD [address] [address] PCP - General Internal Medicine 05/06/21 documented as of this encounter
--- OUTSIDE RECORDS SUMMARY | 2025-03-28 11:51 | XMS_ITS | Encounter Summary ---
Author Organization [facility] and [facility] Address [address] [place] [address] Care Team Providers Care Slug Press Operator Name Role Phone Caitlyn Bowie MD Primary Care Provider +1- [phone] Encounter Details Date Type Department Care Team (Late st Contact Info) Description 06/27/2022 Scanned Document INTERFACE DEFAULT [address] [place] [address] System, Provider Not In Social History Tobacco [...] [facility] Building [address] [place], [place] [address] Ronald Mills MD [address] [place] [address] [address] [place] [address] documented as of this encounter [...] documented as of this encounter Care Teams Slug Press Operator Relationship Specialty Start Date End Date Caitlyn Bowie MD [facility] [address] [address] PCP - General Internal Medicine 05/06/21 documented as of this encounter
--- OUTSIDE RECORDS SUMMARY | 2025-03-28 11:51 | XMS_ITS | Encounter Summary ---
Author Organization [facility] and [facility] Address [address] [place] [address] Care Team Providers Care It Help Desk Associate Name Role Phone Caitlyn Bowie MD Primary Care Provider +1- [phone] Encounter Details Date Type Department Care Team (Late st Contact Info) Description 06/24/2022 Scanned Document INTERFACE DEFAULT [address] [place] [address] System, Provider Not In Social History Tobacco [...] [facility] 240 [facility] Building [address] [place], [place] [phone] Ronald Mills MD [address] [place] [address] [address] [place] [address] documented as of this encounter [...] as of this encounter Care Teams It Help Desk Associate Relationship Specialty Start Date End Date Caitlyn Bowie MD [address] [address] PCP - General Internal Medicine 05/06/21 documented as of this encounter
--- OUTSIDE RECORDS SUMMARY | 2025-03-28 11:51 | XMS_ITS | Encounter Summary ---
Author Organization [facility] and [facility] Address [address] [place] [address] Care Team Providers Care Workers Compensation Legal Secretary Name Role Phone Caitlyn Bowie MD Primary Care Provider +1- [phone] Encounter Details Date Type Department Care Team (Late st Contact Info) Description 05/17/2023 Scanned Document INTERFACE DEFAULT [address] [place] [address] System, Provider Not In Social History [...] [facility] at [facility] 240 [facility] Building [address] [place], [place] [phone] Ronald Mills MD [address] [place] [address] [address]1 [place] [address] documented as of this encounter [...] of this encounter Care Teams Workers Compensation Legal Secretary Relationship Specialty Start Date End Date Caitlyn Bowie MD [address] [address] PCP - General Internal Medicine 05/06/21 documented as of this encounter
--- OUTSIDE RECORDS SUMMARY | 2025-03-28 11:51 | XMS_ITS | Encounter Summary ---
Author Organization [facility] and [facility] Address [address] [place] [address] Care Team Providers Care Education Managers Name Role Phone Caitlyn Bowie MD Primary Care Provider +1- [phone] Encounter Details Date Type Department Care Team (Late st Contact Info) Description 04/20/2023 Scanned Document INTERFACE DEFAULT [address] [place] [address] System, Provider Not In Social History Tobacco [...] Telemedicine Cancer Center at [facility] 240 [facility] Building [address] [place], [place] [phone] Ronald Mills MD [address] [place] [address] [address] [place] [address] documented as of this encounter [...] as of this encounter Care Teams Education Managers Relationship Specialty Start Date End Date Caitlyn Bowie MD [address] [address] PCP - General Internal Medicine 05/06/21 documented as of this encounter
--- OUTSIDE RECORDS SUMMARY | 2025-03-28 11:51 | XMS_ITS | Encounter Summary ---
Author Organization [facility] and [facility] Address [address] [place] [address] Care Team Providers Care Special Services Director Name Role Phone Caitlyn Bowie MD Primary Care Provider +1- [phone] Encounter Details Date Type Department Care Team (Late st Contact Info) Description 12/06/2018 Scanned Document [facility] Health Information Management [address] [place] [address] External, Provider Social History Tobacco Use Types [...] [facility] at [facility] 240 [facility] Building [address] [place], [place] [phone] Ronald Mills MD [address] [place] [address] [address] [place] [address] documented as of this encounter [...] as of this encounter Care Teams Special Services Director Relationship Specialty Start Date End Date Caitlyn Bowie MD 3400 [facility] 1 [place] [address] PCP - General Internal Medicine 05/06/21 Henry Kelly MD Pulmonary Department 175 [facility], [address] [place] [address] Physician Pulmonary Disease 09/06/17 06/22/20 documented as of this encounter
--- OUTSIDE RECORDS SUMMARY | 2025-03-28 11:51 | XMS_ITS | Encounter Summary ---
Author Organization [facility] Address 20 [place] [address] Care Team Providers Care Patient Access Manager Name Role Phone Caitlyn Bowie MD Primary Care Provider +1- [phone] Encounter Details Date Type Department Care Team (Late st Contact Info) Description 05/10/2022 Scanned Document Cardiovascular Medicine at [address] [place] [phone] Norma Renee MD [address] [place] [phone] Social History Tobacco Use Types Packs/Day Years [...] PM EDT Telemedicine Cancer Center at [address] [place] [address] Ronald Mills MD [address] [place] [address] [address] [place] [address] documented as of this encounter Visit Diagnoses Not on filedocumented in this encounter Additional Health Concerns Assessment Noted Time PHQ-9 Depression Total Score: 2 11/07/19 19 2:06 PM EDT documented as of this encounter Care Teams Patient Access Manager Relationship Specialty Start Date End Date Caitlyn Bowie MD [address] [address] PCP - General Internal Medicine 05/06/21 documented as of this encounter
--- OUTSIDE RECORDS SUMMARY | 2025-03-28 11:51 | XMS_ITS | Encounter Summary ---
Author Organization [facility] and [facility] Address [address] [place] [address] Care Team Providers Care University Relations Vice President Name Role Phone Caitlyn Bowie MD Primary Care Provider +1- [phone] Encounter Details Date Type Department Care Team (Late st Contact Info) Description 05/02/2022 Scanned Document INTERFACE DEFAULT [address] [place] [address] System, Provider Not In Social History Tobacco [...] Center at [facility] 240 [facility] Building [address] [place] [address] Ronald Mills MD [address] [place] [address] [address] [place] [address] documented as of this encounter [...] as of this encounter Care Teams University Relations Vice President Relationship Specialty Start Date End Date Caitlyn Bowie MD [address] [address] PCP - General Internal Medicine 05/06/21 documented as of this encounter
--- OUTSIDE RECORDS SUMMARY | 2025-03-28 11:51 | XMS_ITS | Encounter Summary ---
Author Organization [facility] and [facility] Address [address] [place] [address] Care Team Providers Care Sports Agent Name Role Phone Caitlyn Bowie MD Primary Care Provider +1- [phone] Encounter Details Date Type Department Care Team (Late st Contact Info) Description 01/02/2024 Scanned Document INTERFACE DEFAULT [address] [place] [phone] System, Provider Not In Social History Tobacco [...] [facility] 240 [facility] Building [address] [place], [place] [phone] Ronald Mills MD [address] [place] [address] [address] [place] [address] documented as of this encounter [...] as of this encounter Care Teams Sports Agent Relationship Specialty Start Date End Date Caitlyn Bowie MD [address] [address] PCP - General Internal Medicine 05/06/21 documented as of this encounter
--- OUTSIDE RECORDS SUMMARY | 2025-03-28 11:51 | XMS_ITS | Encounter Summary ---
Author Organization [facility] Address [address] [place] [address] Care Team Providers Care Materials Handling Equipment Operator Name Role Phone Caitlyn Bowie MD Primary Care Provider +1- [phone] Encounter Details Date Type Department Care Team (Late st Contact Info) Description 06/28/2022 Scanned Document INTERFACE DEFAULT [address] [place] [address] System, Provider Not In Social History Tobacco [...] [facility] 240 [facility] Building [address] [place], [place] [phone] Ronald Mills MD [address] [place] [address] [address] [place] [address] documented as of this encounter [...] as of this encounter Care Teams Materials Handling Equipment Operator Relationship Specialty Start Date End Date Caitlyn Bowie MD [address] [address] PCP - General Internal Medicine 05/06/21 documented as of this encounter
--- OUTSIDE RECORDS SUMMARY | 2025-03-28 11:51 | XMS_ITS | Encounter Summary ---
Author Organization [facility] Address [address] [place] [phone] Care Team Providers Care Park Services Specialist Name Role Phone Caitlyn Bowie MD Primary Care Provider +1- [phone] Encounter Details Date Type Department Care Team (Late st Contact Info) Description 09/09/2015 Scanned Document [facility] Health Information Management [address] [place] [address] External, Provider Social History Tobacco Use Types [...] at [facility] 240 [facility] Building [address] [place], [place] [phone] Ronald Mills MD 240 [facility] [address] [place] [address] documented as of this encounter Procedures Procedure Name Priority Date/Time Associated Diagnosis Comments LAB SCAN Routine 09/09/2015 documented in this encounter Results * Lab Scan (09/09/2015) Blood specimen (specimen) us Provider External LAB BLOOD ORDERABLES Final Res ult Performing Organization Address City/State/[facility] Co de Phone Number [facility] documented in this encounter Visit Diagnoses Not on filedocumented in this encounter Additional Health Concerns Infection Onset Date Last Indicated Resolved Time COVID-19 03/05/2022 03/05/2022 03/15/2022 7:18 PM EDT documented as of this encounter Care Teams Park Services Specialist Relationship Specialty Start Date End Date Caitlyn Bowie MD 3400 [facility] 1 [place] [address] PCP - General Internal Medicine 05/06/21 Henry Kelly MD Pulmonary Department 175 [facility], [address] [place] [address] Physician Pulmonary Disease 09/06/17 06/22/20 documented as of this encounter
--- OUTSIDE RECORDS SUMMARY | 2025-03-28 11:51 | XMS_ITS | Encounter Summary ---
Author Organization [facility] and [facility] Address [address] [place] [address] Care Team Providers Care Svp Group Director Name Role Phone Caitlyn Bwoie MD Primary Care Provider +1- [phone] Encounter Details Date Type Department Care Team (Late st Contact Info) Description 04/19/2023 Scanned Document INTERFACE DEFAULT [address] [place] [address] System, Provider Not In Social History Tobacco [...] [facility] Center at [facility] 240 [facility] Building [address] [place], [place] [phone] Ronald Mills MD [address] [place] [address] [address] [place] [address] documented as of [...] documented as of this encounter Care Teams Svp Group Director Relationship Specialty Start Date End Date Caitlyn Bowie MD [address] [address] PCP - General Internal Medicine 05/06/21 documented as of this encounter
--- OUTSIDE RECORDS SUMMARY | 2025-03-28 11:51 | XMS_ITS | Encounter Summary ---
Author Organization [facility] and [facility] Address [address] [place] [address] Care Team Providers Care Shipping Order Clerk Name Role Phone Caitlyn Bowie MD Primary Care Provider +1- [phone] Encounter Details Date Type Department Care Team (Late st Contact Info) Description 09/01/2023 Scanned Document INTERFACE DEFAULT [address] [place] [phone] System, Provider Not In Social History Tobacco [...] [facility] 240 [facility] Building [address] [place] [address] Ronald Mills MD [address] [place] [address] [address] [place] [address] documented as of this encounter Visit Diagnoses Not on filedocumented in this encounter Additional Health Concerns Assessment Noted Time PHQ-9 Depression Total Score: 2 11/07/19 19 2:06 PM EDT documented as of this encounter Care Teams Shipping Order Clerk Relationship Specialty Start Date End Date Caitlyn Bowie MD [address] [address] PCP - General Internal Medicine 05/06/21 documented as of this encounter
--- OUTSIDE RECORDS SUMMARY | 2025-03-28 11:51 | XMS_ITS | Encounter Summary ---
Author Organization [facility] Address [address] [place] [address] Care Team Providers Care Pbx Wire Chief Name Role Phone Caitlyn Bowie MD Primary Care Provider +1- [phone] Encounter Details Date Type Department Care Team (Late st Contact Info) Description 10/23/2018 Scanned Document [facility] Health Information Management [address] [place] [phone] External, Provider Social History Tobacco Use [...] [facility] at [facility] 240 [facility] Building [address] [place], [place] [phone] Ronald Mills MD [address] [place] [address] [address] [place] [address] documented as of this encounter Visit Diagnoses Not on filedocumented in this encounter Additional Health Concerns Infection Onset Date Last Indicated Resolved Time COVID-19 03/05/2022 03/05/2022 03/15/2022 7:18 PM EDT documented as of this encounter Care Teams Pbx Wire Chief Relationship Specialty Start Date End Date Caitlyn Bowie MD 3400 [facility] 1 [place] [address] PCP - General Internal Medicine 05/06/21 Henry Kelly MD Pulmonary Department 175 [facility], [address] [place] [address] Physician Pulmonary Disease 09/06/17 06/22/20 documented as of this encounter
--- OUTSIDE RECORDS SUMMARY | 2025-03-28 11:51 | XMS_ITS | Encounter Summary ---
Author Organization [facility] Address [address] [place] [address] Phone Care Team Providers Care Collection Technician Name Role Phone Caitlyn Bowie MD Primary Care Provider +1- [phone] Encounter Details Date Type Department Care Team (Late st Contact Info) Description 10/10/2024 Documentation Only [facility] [address] [place] [address] Ron Taylor [place] [address] [place] [address] Social History Tobacco Use Types [...] [facility] [address] [place] [address] Rubén Ashraf MD [address] [place] [address] [place] [address] documented as of this encounter Visit Diagnoses Not on filedocumented in this encounter Care Teams Collection Technician Relationship Specialty Start Date End Date Caitlyn Bowie MD 3400 [place], [place] PCP - General Internal Medicine 09/24/24 documented as of this encounter
--- OUTSIDE RECORDS SUMMARY | 2025-03-28 11:51 | XMS_ITS | Encounter Summary ---
Author Organization [facility] Address [address] [place] [address] Care Team Providers Care Arnp Name Role Phone Caitlyn Bowie MD Primary Care Provider +1- [phone] Encounter Details Date Type Department Care Team (Late st Contact Info) Description 09/09/2015 Scanned Document [facility] Health Information Management [address] [place] [address] External, Provider Social History Tobacco Use Types [...] [facility] at [facility] [address] [facility] Building [address] [place], [place] [phone] Ronald Mills MD 240 [facility] Max [address] [place] [address] documented as of this encounter Procedures Procedure Name Priority Date/Time Associated Diagnosis Comments LAB SCAN Routine 09/09/2015 documented in this encounter Results * Lab Scan (09/09/2015) Blood specimen (specimen) us Provider External LAB BLOOD ORDERABLES Final Res ult [facility] documented in this encounter Visit Diagnoses Not on filedocumented in this encounter Additional Health Concerns Infection Onset Date Last Indicated Resolved Time COVID-19 03/05/2022 03/05/2022 03/15/2022 7:18 PM EDT documented as of this encounter Care Teams Arnp Relationship Specialty Start Date End Date Caitlyn Bowie MD 3400 [facility] 1 [place] [address] PCP - General Internal Medicine 05/06/21 Henry Kelly MD Pulmonary Department 175 [facility], [address] [place] [address] Physician Pulmonary Disease 09/06/17 06/22/20 documented as of this encounter
--- OUTSIDE RECORDS SUMMARY | 2025-03-28 11:51 | XMS_ITS | Encounter Summary ---
Author Organization [facility] Address [address] [place] [address] [address] [place] [address] Phone Care Team Providers Care Core Layer Machine Operator Name Role Phone Caitlyn Bowie MD Primary Care Provider +1- [phone] Encounter Details Date Type Department Care Team (Late st Contact Info) Description 08/30/2024 [facility] 2447 [facility] 202 [place] [address] Adalgisa Whitney MD [address] [place] [address] 202 [place] [address] Social History Tobacco Use Types [...] PM EDT Telemedicine Cancer Center at [address] [place] [address] Ronald Mills MD [address] [place] [phone] documented as of this encounter Visit Diagnoses Not on filedocumented in this encounter Additional Health Concerns Assessment Noted Time PHQ-9 Depression Total Score: 2 11/07/19 19 2:06 PM EDT documented as of this encounter Care Teams Core Layer Machine Operator Relationship Specialty Start Date End Date Caitlyn Bowie MD [address] [address] PCP - General Internal Medicine 05/06/21 documented as of this encounter
--- OUTSIDE RECORDS SUMMARY | 2025-03-28 11:51 | XMS_ITS | Encounter Summary ---
Author Organization [facility] Address [address] [place] [address] Care Team Providers Care Regulatory Affairs Intern Name Role Phone Caitlyn Bowie MD Primary Care Provider +1- [phone] Encounter Details Date Type Department Care Team (Late st Contact Info) Description 08/28/2015 Scanned Document [facility] Health Information Management [address] [place] [address] External, Provider Social History Tobacco Use Types [...] Center at [facility] 240 [facility] Building [address] [place], [place] [phone] Ronald Mills MD 240 [facility] A1 [place] [address] documented as of this encounter Visit Diagnoses Not on filedocumented in this encounter Additional Health Concerns Infection Onset Date Last Indicated Resolved Time COVID-19 03/05/2022 03/05/2022 03/15/2022 7:18 PM EDT documented as of this encounter Care Teams Regulatory Affairs Intern Relationship Specialty Start Date End Date Caitlyn Bowie MD 3400 [facility] 1 [place] [address] PCP - General Internal Medicine 05/06/21 Henry Kelly MD Pulmonary Department 175 [facility], [address] [place] [address] Physician Pulmonary Disease 09/06/17 06/22/20 documented as of this encounter
--- OUTSIDE RECORDS SUMMARY | 2025-03-28 11:51 | XMS_ITS | Encounter Summary ---
Author Organization [facility] and [facility] Address [address] [place] [address] Care Team Providers Care Interchange Agent Name Role Phone Caitlyn Bowie MD Primary Care Provider +1- [phone] Encounter Details Date Type Department Care Team (Late st Contact Info) Description 06/23/2022 Scanned Document INTERFACE DEFAULT [address] [place] [address] System, Provider Not In Social History Tobacco [...] at [facility] 240 [facility] Building [address] [place] [address] Ronald Mills MD [address] [place] [address] [address] [place] [address] documented as of this encounter Visit Diagnoses Not on filedocumented in this encounter Additional Health Concerns Assessment Noted Time PHQ-9 Depression Total Score: 2 11/07/19 19 2:06 PM EDT documented as of this encounter Care Teams Interchange Agent Relationship Specialty Start Date End Date Caitlyn Bowie MD [address] [address] PCP - General Internal Medicine 05/06/21 documented as of this encounter
--- OUTSIDE RECORDS SUMMARY | 2025-03-28 11:51 | XMS_ITS | Encounter Summary ---
Author Organization [facility] Address [address] [place] [address] Care Team Providers Care Sound Effects Technician Name Role Phone Caitlyn Bowie MD Primary Care Provider +1- [phone] Encounter Details Date Type Department Care Team (Late st Contact Info) Description 07/22/2021 Scanned Document INTERFACE DEFAULT [address] [place] [address] System, Provider Not In Social History Tobacco [...] [facility] Building [address] [place], [place] [phone] Ronald Mills MD [address] [place] [address] [address]1 [place] [address] documented as of this encounter [...] as of this encounter Care Teams Sound Effects Technician Relationship Specialty Start Date End Date Caitlyn Bowie MD [address] [address] PCP - General Internal Medicine 05/06/21 documented as of this encounter
--- OUTSIDE RECORDS SUMMARY | 2025-03-28 11:51 | XMS_ITS | Encounter Summary ---
Author Organization [facility] Address [address] [place] [address] Care Team Providers Care Manager Net Name Role Phone Caitlyn Bowie MD Primary Care Provider +1- [phone] Encounter Details Date Type Department Care Team (Late st Contact Info) Description 09/28/2015 Scanned Document [facility] Health Information Management [address] [place] [address] External, Provider Social History Tobacco Use Types [...] Center at [facility] 240 [facility] Building [address] [place], [place] [phone] Ronald Mills MD 240 [facility] Max [address] [place] [address] documented as of this encounter Procedures Procedure Name Priority Date/Time Associated Diagnosis Comments LAB SCAN Routine 09/09/2015 documented in this encounter Results * Lab Scan (09/09/2015) Blood specimen (specimen) us Provider External LAB BLOOD ORDERABLES Final Res ult [facility] documented in this encounter Visit Diagnoses Not on filedocumented in this encounter Additional Health Concerns Infection Onset Date Last Indicated Resolved Time COVID-19 03/05/2022 03/05/2022 03/15/2022 7:18 PM EDT documented as of this encounter Care Teams Manager Net Relationship Specialty Start Date End Date Caitlyn Bowie MD 3400 [facility] 1 [place] [address] PCP - General Internal Medicine 05/06/21 Henry Kelly MD Pulmonary Department 175 [facility], [address] [place] [address] Physician Pulmonary Disease 09/06/17 06/22/20 documented as of this encounter
--- OUTSIDE RECORDS SUMMARY | 2025-03-28 11:51 | XMS_ITS | Encounter Summary ---
Author Organization [facility] Address [address] [place] [address] Care Team Providers Care Supervisor Backfilling Name Role Phone Caitlyn Bowie MD Primary Care Provider +1- [phone] Encounter Details Date Type Department Care Team (Late st Contact Info) Description 10/24/2022 Scanned Document INTERFACE DEFAULT [address] [place] [address] System, Provider Not In Social History Tobacco [...] [facility] 240 [facility] Building [address] [place], [place] [address] Ronald Mills MD [address] [place] [address] [address] [place] [address] documented [...] as of this encounter Care Teams Supervisor Backfilling Relationship Specialty Start Date End Date Caitlyn Bowie MD [facility] [address] [address] PCP - General Internal Medicine 05/06/21 documented as of this encounter
--- OUTSIDE RECORDS SUMMARY | 2025-03-28 11:51 | XMS_ITS | Encounter Summary ---
Author Organization [facility] Address [address] [place] [address] Care Team Providers Care Pipeline Integrity Engineer Name Role Phone Caitlyn Bowie MD Primary Care Provider +1- [phone] Encounter Details Date Type Department Care Team (Late st Contact Info) Description 09/02/2021 Scanned Document INTERFACE DEFAULT [address] [place] [address] System, Provider Not In Social History Tobacco [...] [facility] 240 [facility] Building [address] [place], [place] [phone] Ronald Mills MD [address] [place] [address] [address] [place] [address] documented as of this encounter [...] as of this encounter Care Teams Pipeline Integrity Engineer Relationship Specialty Start Date End Date Caitlyn Bowie MD [address] [address] PCP - General Internal Medicine 05/06/21 documented as of this encounter
--- OUTSIDE RECORDS SUMMARY | 2025-03-28 11:51 | XMS_ITS | Encounter Summary ---
Author Organization [facility] Address [address] [place] [address] Care Team Providers Care Batcher Operator Name Role Phone Caitlyn Bowie MD Primary Care Provider +1- [phone] Encounter Details Date Type Department Care Team (Late st Contact Info) Description 04/13/2023 Scanned Document INTERFACE DEFAULT [address] [place] [address] System, Provider Not In Social History Tobacco [...] [facility] 240 [facility] Building [address] [place] [address] Ronald Mills MD [address] [place] [address] [address] [place] [address] documented as of this encounter [...] documented as of this encounter Care Teams Batcher Operator Relationship Specialty Start Date End Date Caitlyn Bowie MD [address] [address] PCP - General Internal Medicine 05/06/21 documented as of this encounter
--- OUTSIDE RECORDS SUMMARY | 2025-03-28 11:51 | XMS_ITS | Encounter Summary ---
Author Organization [facility] Address [address] [place] [address] Care Team Providers Care Knit Tubing Dyer Name Role Phone Caitlyn Bowie MD Primary Care Provider +1- [phone] Encounter Details Date Type Department Care Team (Late st Contact Info) Description 09/24/2015 Scanned Document Digestive Diseases at [address] [facility] [address] [facility] [address] [place] [address] Kevin Espinoza MD [address] [place] [phone] Social History Tobacco Use Types Packs/Day [...] PM EDT Tele[facility]icine Cancer [facility] at [address] [place], [place] [phone] Ronald Mills MD [address] [place] [address] [address] [place] [address] documented as of this encounter Visit Diagnoses Not on filedocumented in this encounter Additional Health Concerns Infection Onset Date Last Indicated Resolved Time COVID-19 03/05/2022 03/05/2022 03/15/2022 7:18 PM EDT documented as of this encounter Care Teams Knit Tubing Dyer Relationship Specialty Start Date End Date Caitlyn Bowie MD 3400 [facility] 1 [place] [address] PCP - General Internal Medicine 05/06/21 Henry Kelly MD Pulmonary Department 175 [facility], [address] [place] [address] Physician Pulmonary Disease 09/06/17 06/22/20 documented as of this encounter
--- OUTSIDE RECORDS SUMMARY | 2025-03-28 11:51 | XMS_ITS | Encounter Summary ---
Author Organization [facility] Address [address] [place] [address] Care Team Providers Care Supervisor Housecleaner Name Role Phone Caitlyn Bowie MD Primary Care Provider +1- [phone] Encounter Details Date Type Department Care Team (Late st Contact Info) Description 07/06/2021 Scanned Document INTERFACE DEFAULT [address] [place] [address] System, Provider Not In Social History Tobacco [...] Services – [facility] 240 [facility] Building [address] [place] [address] Ronald Mills MD [address] [place] [address] [address] [place] [address] documented as of this encounter Visit Diagnoses Not on filedocumented in this encounter Additional Health Concerns Infection Onset Date Last Indicated Resolved Time COVID-19 03/05/2022 03/05/2022 03/15/2022 7:18 PM EDT Assessment Noted Time PHQ-9 Depression Total Score: 2 11/07/19 19 2:06 PM EDT documented as of this encounter Care Teams Supervisor Housecleaner Relationship Specialty Start Date End Date Caitlyn Bowie MD [address] [address] PCP - General Internal Medicine 05/06/21 documented as of this encounter
--- OUTSIDE RECORDS SUMMARY | 2025-03-28 11:51 | XMS_ITS | Encounter Summary ---
Author Organization [facility] and [facility] Address [address] [place] [address] Care Team Providers Care Director Of Group Sales Name Role Phone Caitlyn Bowie MD Primary Care Provider +1- [phone] Encounter Details Date Type Department Care Team (Late st Contact Info) Description 06/20/2022 Scanned Document INTERFACE DEFAULT [address] [place] [address] System, Provider Not In Social History Tobacco [...] [facility] [address] [facility] [address] [place], [place] [phone] Ronald Mills MD [address] [place] [address] [address] [place] [address] documented as of this encounter [...] of this encounter Care Teams Director Of Group Sales Relationship Specialty Start Date End Date Caitlyn Bowie MD [facility] [address] [address] PCP - General Internal Medicine 05/06/21 documented as of this encounter
--- OUTSIDE RECORDS SUMMARY | 2025-03-28 11:51 | XMS_ITS | Encounter Summary ---
Author Organization [facility] Address [address] [place] [address] Care Team Providers Care Electronic Test Technician Name Role Phone Caitlyn Bowie MD Primary Care Provider +1- [phone] Encounter Details Date Type Department Care Team (Late st Contact Info) Description 04/28/2022 Scanned Document INTERFACE DEFAULT [address] [place] [address] System, Provider Not In Social History Tobacco [...] Telemedicine Cancer Center at [facility] 240 [facility] [address] [place], [place] [phone] Ronald Mills MD [address] [place] [address] [address] [place] [address] documented as of this encounter [...] as of this encounter Care Teams Electronic Test Technician Relationship Specialty Start Date End Date Caitlyn Bowie MD [facility] [address] [address] PCP - General Internal Medicine 05/06/21 documented as of this encounter
--- OUTSIDE RECORDS SUMMARY | 2025-03-28 11:51 | XMS_ITS | Encounter Summary ---
Author Organization [facility] and [facility] Address [address] [place] [address] Care Team Providers Care Research Engineer Marine Equipment Name Role Phone Caitlyn Bowie MD Primary Care Provider +1- [phone] Encounter Details Date Type Department Care Team (Late st Contact Info) Description 12/04/2018 Scanned Document [facility] Health Information Management [address] [place] [address] External, Provider Social History Tobacco Use Types [...] [facility] 240 [facility] Building [address] [place], [place] [phone] Ronald Mills MD [address] [place] [address] [address] [place] [address] documented as of this encounter [...] 3400 [facility] Max 1 [place] [address] PCP - General Internal Medicine 05/06/21 Henry Kelly MD Pulmonary Department 175 [facility], [address] [place] [address] Physician Pulmonary Disease 09/06/17 06/22/20 documented as of this encounter
--- OUTSIDE RECORDS SUMMARY | 2025-03-28 11:51 | XMS_ITS | Encounter Summary ---
Author Organization [facility] and [facility] Address [address] [place] [address] Care Team Providers Care It Support Analyst Name Role Phone Caitlyn Bowie MD Primary Care Provider +1- [phone] Encounter Details Date Type Department Care Team (Late st Contact Info) Description 08/23/2022 Abstract Cardiovascular Medicine at [address] [place] [address] Norma Renee MD [address] [place] [phone] Social History Tobacco Use Types Packs/Day Years [...] PM EDT Telemedicine Cancer Center at [address] [place] [address] Ronald Mills MD [address] [place] [address] [address] [place] [address] documented as of this encounter Visit Diagnoses Not on filedocumented in this encounter Additional Health Concerns Assessment Noted Time PHQ-9 Depression Total Score: 2 11/07/19 19 2:06 PM EDT documented as of this encounter Care Teams It Support Analyst Relationship Specialty Start Date End Date Caitlyn Bowie MD [address] [address] PCP - General Internal Medicine 05/06/21 documented as of this encounter
--- OUTSIDE RECORDS SUMMARY | 2025-03-28 11:52 | XMS_ITS | Encounter Summary ---
Author Organization [facility] Address [address] [place] [address] Care Team Providers Care Bag Turner Name Role Phone Caitlyn Bowie MD Primary Care Provider +1- [phone] Encounter Details Date Type Department Care Team (Late st Contact Info) Description 04/14/2022 Scanned Document INTERFACE DEFAULT [address] [place] [address] System, Provider Not In Social History Tobacco [...] [facility] 240 [facility] Building [address] [place] [address] Ronald Mills MD [address] [place] [address] [address] [place] [address] documented as of this encounter Visit Diagnoses Not on filedocumented in this encounter Additional Health Concerns Assessment Noted Time PHQ-9 Depression Total Score: 2 11/07/19 19 2:06 PM EDT documented as of this encounter Care Teams Bag Turner Relationship Specialty Start Date End Date Caitlyn Bowie MD [address] [address] PCP - General Internal Medicine 05/06/21 documented as of this encounter
--- OUTSIDE RECORDS SUMMARY | 2025-03-28 11:52 | XMS_ITS | Encounter Summary ---
Author Organization [facility] Address [address] [place] [address] Care Team Providers Care Weighing Station Operator Name Role Phone Caitlyn Bowie MD Primary Care Provider +1- [phone] Encounter Details Date Type Department Care Team (Latest Contact Info) Description 12/25/2015 Transcribed Orders [facility] Station 35 [facility] [place] [address] Osmel Briscoe MD Other abnormality of red [...] PM EDT Telemedicine Cancer Center at [address] [place], [place] [phone] Ronald Mills MD [address] [place] [address] [address] [place] [address] documented as of this encounter Results * Free kappa lambda with ratio, serum ( GH Q YH) (12/25/2015 10:09 AM EDT) Ig [place] Free Light Chain 1.84 0.33 - 1.94 mg/dL [facility] Ig Lambda Free Light Chain 1.96 0.57 - 2.63 mg/dL [facility] [place]/Lambda FLC Ratio 0.94 0.26 - 1.65 [facility] Blood specimen (specimen) 12/25/2015 10:09 AM EDT Osmel Briscoe MD LAB BLOOD ORDERABLES Final R esult Performing Organization Address [facility] Co de Phone Number [facility] [address] [place] [phone] * Immunofixation, serum ( L Q YH) (12/25/2015 10:09 AM EDT) [facility] Immunofixation Electrophoresis Gel See below See Interp. [facility] Comment: INTERPRETATION: Normal immunofixation electrophoresis. No evidence of a serum monoclonal component. SIGNED BY:Keyur KAYE MD ON 12/29/2015 14:56:04 INTERPRETATION REVIEW : I have reviewed these results and agree with this interpretation. Blood specimen (specimen) 12/25/2015 10:09 AM EDT Osmel Briscoe MD LAB BLOOD ORDERABLES Final R esult Performing Organization Address [facility] Co de Phone Number [facility] [address] [place] [phone] * (ABNORMAL) Protein electrophoresis, serum ( GH L YH) (12/25/2015 10:09 AM EDT) Albumin Electrophoresis 3.45(L) 3.50 - 4.70 g/dL [facility] Eeiek-3-Ofoidwsh 0.16 0.10 - 0.30 g/dL [facility] Rsuej-9-Ypvmbkfd 0.81 0.60 - 1.00 g/dL [facility] Beta Globulin 0.86 0.70 - 1.20 g/dL [facility] Gamma Globulin 0.92 0.70 - 1.50 g/dL [facility] SPEP Interpretation See below See Interp. [facility] Comment: INTERPRETATION: No discrete [...] ORDERABLES Final R esult Performing Organization Address City/[facility] Co de Phone Number [facility] [address] [place] [phone] * Reticulocytes (GH L Q YH) (12/25/2015 10:09 AM EDT) Reticulocyte Count 2.1 0.6 - 2.7 % [facility] Blood specimen (specimen) 12/25/2015 10:09 AM EDT Osmel Briscoe MD LAB BLOOD ORDERABLES Final R esult Performing Organization Address [facility] Co de Phone Number [facility] [address] [place] [phone] * (ABNORMAL) Sedimentation rate (ESR) (12/25/2015 10:09 AM EDT) Sed Rate 27(H) 0 - 20 mm/hr [facility] Blood specimen (specimen) 12/25/2015 10:09 AM EDT Osmel Briscoe MD LAB BLOOD ORDERABLES Final R esult Performing Organization Address [facility] Co de Phone Number [facility] [address] [place] [phone] * Ferritin (12/25/2015 10:09 AM EDT) Ferritin 68 9 - 120 ng/mL [facility] Blood specimen (specimen) 12/25/2015 10:09 AM EDT Osmel Briscoe MD LAB BLOOD ORDERABLES Final R esult Performing Organization Address [facility] Co de Phone Number [facility] [address] [place] [phone] * Iron and TIBC (12/25/2015 10:09 AM EDT) Iron 110 50 - 170 ug/dL [facility] TIBC 290 250 - 450 ug/dL [facility] Iron Saturation 38 15 - 50 [facility] Blood specimen (specimen) 12/25/2015 10:09 AM EDT Osmel Briscoe MD LAB BLOOD ORDERABLES Final R esult Performing Organization Address [facility] Co de Phone Number [facility] [address] [place] [phone] * Vitamin D 25 hydroxy (BH L YH) (12/25/2015 10:09 AM EDT) Vit D, 25-Hydroxy 43 20 - 50 ng/mL [facility] Comment: A serum 25(OH) [...] ORDERABLES Final R esult Performing Organization Address City/[facility]/ZIP Co de Phone Number [facility] [address] [place] [address] * TSH (BH L YH) (12/25/2015 10:09 AM EDT) TSH cancelled 0.3 - 4.2 uU/mL [facility] TSH 1.62 0.3 - 4.2 uU/mL [facility] Comment:This test is a third generation TSH assay. Blood specimen (specimen) 12/25/2015 10:09 AM EDT Osmel Briscoe MD LAB BLOOD ORDERABLES Final R esult Performing Organization Address [facility] Co de Phone Number [facility] [address] [place] [phone] * (ABNORMAL) CBC and differential (12/25/2015 10:09 AM EDT) [facility] CBC with Differential See Below [facility] WBC 9.9 4.0 - 10.0 x 1000/uL [facility] RBC 4.0 3.8 - 5.2 M/uL [facility] Hemoglobin 13.4 12.0 - 16.0 g/dL [facility] Hematocrit 41.0 37.0 - 47.0 % [facility] MCV 101(H) 78 - 94 fL [facility] MCH 33.2(H) 27.0 - 33.0 pg [facility] MCHC 32.8(L) 33.0 - 37.0 g/dL [facility] RDW 12.5 10.8 - 14.5 % [facility] Platelets 265 150 - 350 x 1000/uL [facility] MPV 7.2 6.0 - 10.0 fL [facility] Neutrophils 82(H) 38 - 71 % [facility] Lymphocytes 7(L) 14 - 46 % [facility] Monocytes 10 2 - 15 % [facility] Eosinophils 1 0 - 5 % [facility] Basophils 0 0 - 2 % [facility] ANC (Abs Neutrophil Count) 8.1 1.0 - 9.0 x 1000/uL [facility] Absolute Lymphocyte Count 0.7 0.6 - 4.6 x 1000/uL [facility] Blood specimen (specimen) ARM NEC / Unknown 12/25/2015 10:09 AM EDT us Osmel Briscoe MD LAB BLOOD ORDERABLES Final R esult [facility] [address] [place] [address] documented in this encounter Visit Diagnoses Diagnosis [...] documented as of this encounter Care Teams Weighing Station Operator Relationship Specialty Start Date End Date Caitlyn Bowie MD [facility] 1 [place] [address] PCP - General Internal Medicine 05/06/21 Henry Kelly MD Pulmonary Department 175 [facility], [address] [place] [address] Physician Pulmonary Disease 09/06/17 06/22/20 documented as of this encounter
--- OUTSIDE RECORDS SUMMARY | 2025-03-28 11:52 | XMS_ITS | Encounter Summary ---
Author Organization [facility] Address [address] [place] [address] Care Team Providers Care Reforestation Worker Name Role Phone Caitlyn Bowie MD Primary Care Provider +1- [phone] Encounter Details Date Type Department Care Team (Late st Contact Info) Description 04/16/2022 Scanned Document INTERFACE DEFAULT [address] [place] [address] System, Provider Not In Social History Tobacco [...] [facility] Building [address] [place], [place] [phone] Ronald Mills MD [address] [place] [address] [address] [place] [address] documented as of this encounter [...] Date End Date Caitlyn oBwie MD [address] [address] PCP - General Internal Medicine 05/06/21 documented as of this encounter
--- OUTSIDE RECORDS SUMMARY | 2025-03-28 11:52 | XMS_ITS | Encounter Summary ---
Author Organization [facility] Address [address] [place] [address] Care Team Providers Care Material Stress Tester Name Role Phone Caitlyn Bowie MD Primary Care Provider +1- [phone] Encounter Details Date Type Department Care Team (Late st Contact Info) Description 01/13/2019 Scanned Document [facility] Health Information Management [address] [place] [address] External, Provider Social History Tobacco Use Types [...] [facility] Building [address] [place] [address] Ronald Mills MD [address] [place] [address] [address] [place] [address] documented as of this encounter [...] as of this encounter Care Teams Material Stress Tester Relationship Specialty Start Date End Date Caitlyn Bowie MD 3400 [facility] 1 [place] [address] PCP - General Internal Medicine 05/06/21 Henry Kelly MD Pulmonary Department 175 [facility], [address] [place] [address] Physician Pulmonary Disease 09/06/17 06/22/20 documented as of this encounter
--- OUTSIDE RECORDS SUMMARY | 2025-03-28 11:52 | XMS_ITS | Encounter Summary ---
Author Organization [facility] Address [address] [place] [address] Care Team Providers Care 21 Dealer Name Role Phone Cristofer Hope MD Primary Care Provider Victorino Read MD Primary Care Provider Unavaila Sharon Rios Primary Care Provider Unava ilable Brennan Burnett MD Primary Care Provider Unavailab Brennan Salmeron MD Primary Care Provider Unavailab Hayden Montes MD Unavailable [phone] Pallavi Flood NP Unavailable [phone]- [phone] Caitlyn Bowie MD Primary Care Provider Unava ilable Reason for Visit * Reason Onset Date Comments Wheezing 05/15/2017 Encounter Details Date Type Department Care Team Description 05/15/2017 Telephone Pulmonology - [address] [place] [address] Henry Kelly MD Wheezing Social [...] on filedocumented in this encounter Care Teams 21 Dealer Relationship Specialty Start Date End Date Cristofer Hope MD PCP - General Internal Medicine 05/16/17 12/20/17 Victorino Martin MD PCP - General Internal Medicine 12/21/17 08/01/18 Sharon Vides PCP - General Internal Medicine 08/02/18 05/26/20 Brennan Burnett MD PCP - General Internal Medicine 05/27/20 12/07/21 Brennan Burnett MD PCP - General 05/30/12 05/15/17 [address] [place] [address] PCP - General Internal Medicine 12/08/21 Hayden Shah MD [address] [place] [address] Specialist Cardiovascular Disease 09/01/20 Pallavi Flood, ALON [address] [place] [address] Cardiology 09/01/20 documented as of this encounter
--- OUTSIDE RECORDS SUMMARY | 2025-03-28 11:52 | XMS_ITS | Encounter Summary ---
Author Organization [facility] Address [address] [place] [address] Care Team Providers Care Patrol Sergeant Sheriff'S Office Name Role Phone Caitlyn Bowie MD Primary Care Provider +1- [phone] Encounter Details Date Type Department Care Team (Late Contact Info) Description 04/12/2022 Scanned Document [facility] Health Information Management [address] [place] [address] External, Provider Social History Tobacco Use Types [...] [facility] 240 [facility] Building [address] [place], [place] [phone] Ronald Mills MD [address] [place] [address] [address] [place] [address] documented as of this encounter [...] as of this encounter Care Teams Patrol Sergeant Sheriff'S Office Relationship Specialty Start Date End Date Caitlyn Bowie MD [address] [address] PCP - General Internal Medicine 05/06/21 documented as of this encounter
--- OUTSIDE RECORDS SUMMARY | 2025-03-28 11:52 | XMS_ITS | Encounter Summary ---
Author Organization [facility] Address [address] [place] [address] Care Team Providers Care Medical Accountant Name Role Phone Caitlyn Bowie MD Primary Care Provider +1- [phone] Encounter Details Date Type Department Care Team (Late st Contact Info) Description 11/04/2015 Scanned Document [facility] Health Information Management [address] [place] [address] External, Provider Social History Tobacco Use Types [...] [facility] 240 [facility] Building [address] [place], [place] [phone] Ronald Mills MD 240 [facility] [address] [place] [address] documented as of this encounter Procedures Procedure Name Priority Date/Time Associated Diagnosis Comments NUC MED/PET RESULT SCAN Routine 11/04/2015 documented in this encounter Results * Nuc Med/PET Result Scan (11/04/2015) us Provider External IMG SCAN REPORTS Edited Result - Final [facility] [place], [place], [facility] documented in this encounter Visit Diagnoses Not on filedocumented in this encounter Additional Health Concerns Infection Onset Date Last Indicated Resolved Time COVID-19 03/05/2022 03/05/2022 03/15/2022 7:18 PM EDT documented as of this encounter Care Teams Medical Accountant Relationship Specialty Start Date End Date Caitlyn Bowie MD 3400 [facility] Max 1 [place] [address] PCP - General Internal Medicine 05/06/21 Henry Kelly MD Pulmonary Department 175 [facility], [address] [place] [address] Physician Pulmonary Disease 09/06/17 06/22/20 documented as of this encounter
--- OUTSIDE RECORDS SUMMARY | 2025-03-28 11:52 | XMS_ITS | Encounter Summary ---
Author Organization [facility] Address [address] [place] [address] Care Team Providers Care Manager Sas Name Role Phone Caitlyn Bowie MD Primary Care Provider +1- [phone] Encounter Details Date Type Department Care Team (Late st Contact Info) Description 03/12/2019 Scanned Document [facility] Health Information Management [address] [place] [address] External, Provider Social History Tobacco Use Types [...] [facility] 240 [facility] Building [address] [place] [address] Ronald Mills MD [address] [place] [address] [address] [place] [address] documented as of this encounter [...] as of this encounter Care Teams Manager Sas Relationship Specialty Start Date End Date Caitlyn Bowie MD 3400 [facility] 1 [place] [address] PCP - General Internal Medicine 05/06/21 Henry Kelly MD Pulmonary Department 175 [facility], [address] [place] [address] Physician Pulmonary Disease 09/06/17 06/22/20 documented as of this encounter
--- OUTSIDE RECORDS SUMMARY | 2025-03-28 11:52 | XMS_ITS | Encounter Summary ---
Author Organization [facility] and [facility] Address [address] [place] [address] Care Team Providers Care Computer Science Instructor Name Role Phone Caitlyn Bowie MD Primary Care Provider +1- [phone] Encounter Details Date Type Department Care Team (Late st Contact Info) Description 12/29/2021 Telephone [facility] at [address] - [address] [address] Ronald Mills MD [address] [place] [address] Social History Tobacco Use Types Packs/Day [...] not sure where the blood's coming from. [phone] documented in this encounter Plan of Treatment Upcoming Encounters Date Type Department Care Team (Late st Contact Info) Description 04/25/2025 4:00 PM EDT Telemedicine [facility] [address] [facility] [address] [place] [address] Ronald Mills MD 240 [facility] A1 [place] [phone] documented as of this encounter Visit Diagnoses Not on filedocumented in this encounter Additional Health Concerns Infection Onset Date Last Indicated Resolved Time COVID-19 03/05/2022 03/05/2022 03/15/2022 7:18 PM EDT Assessment Noted Time PHQ-9 Depression Total Score: 2 11/07/19 19 2:06 PM EDT documented as of this encounter Care Teams Computer Science Instructor Relationship Specialty Start Date End Date Caitlyn Bowie MD [address] [address] PCP - General Internal Medicine 05/06/21 documented as of this encounter
--- OUTSIDE RECORDS SUMMARY | 2025-03-28 11:52 | XMS_ITS | Encounter Summary ---
Author Organization [facility] and [facility] Address [address] [place] [address] Care Team Providers Care Instrument Inspector Name Role Phone Caitlyn Bowie MD Primary Care Provider +1- [phone] Encounter Details Date Type Department Care Team (Late st Contact Info) Description 01/02/2019 Scanned Document [facility] Health Information Management [address] [place] [address] External, Provider Social History Tobacco Use Types [...] Center at [facility] 240 [facility] [address] [place] [address] Ronald Mills MD [address] [place] [address] [address] [place] [address] documented as of this [...] as of this encounter Care Teams Instrument Inspector Relationship Specialty Start Date End Date Caitlyn Bowie MD 3400 [facility] 1 [place] [address] PCP - General Internal Medicine 05/06/21 Henry Kelly MD Pulmonary Department 175 [facility], [address] [place] [address] Physician Pulmonary Disease 09/06/17 06/22/20 documented as of this encounter
--- OUTSIDE RECORDS SUMMARY | 2025-03-28 11:52 | XMS_ITS | Encounter Summary ---
Author Organization [facility] and [facility] Address [address] [place] [address] Care Team Providers Care Brass Roller Name Role Phone Caitlyn Bowie MD Primary Care Provider +1- [phone] Encounter Details Date Type Department Care Team (Late st Contact Info) Description 03/02/2022 Scanned Document [facility] Health Information Management [address] [place] [address] External, Provider Social History Tobacco Use Types [...] [facility] at [facility] 240 [facility] Building [address] [place], [place] [phone] Ronald Mills MD [address] [place] [address] [address] [place] [address] documented as of this encounter Visit Diagnoses Not on filedocumented in this encounter Additional Health Concerns Infection Onset Date Last Indicated Resolved Time COVID-19 03/05/2022 03/05/2022 03/15/2022 7:18 PM EDT Assessment Noted Time PHQ-9 Depression Total Score: 2 11/07/19 19 2:06 PM EDT documented as of this encounter Care Teams Brass Roller Relationship Specialty Start Date End Date Caitlyn Bowie MD [address] [address] PCP - General Internal Medicine 05/06/21 documented as of this encounter
--- OUTSIDE RECORDS SUMMARY | 2025-03-28 11:52 | XMS_ITS | Encounter Summary ---
Author Organization [facility] and [facility] Address [address] [place] [address] Care Team Providers Care Rental Sales Representative Name Role Phone Caitlyn Bowie MD Primary Care Provider +1- [phone] Encounter Details Date Type Department Care Team (Late st Contact Info) Description 12/01/2015 Scanned Document [facility] Health Information Management [address] [place] [address] External, Provider Social History Tobacco Use Types [...] at [facility] 240 [facility] Building [address] [place], [place] [phone] Ronald Mills MD 240 [facility] Max [address] [place] [address] documented as of this encounter Procedures Procedure Name Priority Date/Time Associated Diagnosis Comments CT RESULT SCAN Routine 12/01/2015 documented in this encounter Results * CT Result Scan (12/01/2015) us Provider External IMG SCAN REPORTS Edited Result - Final [facility] [place], [facility] documented in this encounter Visit Diagnoses Not on filedocumented in this encounter Additional Health Concerns Infection Onset Date Last Indicated Resolved Time COVID-19 03/05/2022 03/05/2022 03/15/2022 7:18 PM EDT documented as of this encounter Care Teams Rental Sales Representative Relationship Specialty Start Date End Date Caitlyn Bowie MD 3400 [facility] Max 1 [place] [address] PCP - General Internal Medicine 05/06/21 Henry Kelly MD Pulmonary Department 175 [facility], [address] [place] [address] Physician Pulmonary Disease 09/06/17 06/22/20 documented as of this encounter
--- OUTSIDE RECORDS SUMMARY | 2025-03-28 11:52 | XMS_ITS | Encounter Summary ---
Author Organization [facility] and [facility] Address [address] [place] [address] Care Team Providers Care Gun Stock Checker Name Role Phone Caitlyn Bowie MD Primary Care Provider +1- [phone] Encounter Details Date Type Department Care Team (Late st Contact Info) Description 12/03/2015 Scanned Document [facility] Health Information Management [address] [place] [address] External, Provider Social History Tobacco Use Types [...] [facility] Center at [facility] 240 [facility] Building [address] [place], [place] [phone] Ronald Mills MD 240 [facility] Max [address] [place] [address] documented as of this encounter Procedures Procedure Name Priority Date/Time Associated Diagnosis Comments LAB SCAN Routine 12/03/2015 documented in this encounter Results * Lab Scan (12/03/2015) Blood specimen (specimen) us Provider External LAB BLOOD ORDERABLES Edited Re sult - Final [facility] documented in this encounter Visit Diagnoses Not on filedocumented in this encounter Additional Health Concerns Infection Onset Date Last Indicated Resolved Time COVID-19 03/05/2022 03/05/2022 03/15/2022 7:18 PM EDT documented as of this encounter Care Teams Gun Stock Checker Relationship Specialty Start Date End Date Caitlyn Bowie MD 3400 [facility] 1 [place] [address] PCP - General Internal Medicine 05/06/21 Henry Kelly MD Pulmonary Department 175 [facility], [address] [place] [address] Physician Pulmonary Disease 09/06/17 06/22/20 documented as of this encounter
--- OUTSIDE RECORDS SUMMARY | 2025-03-28 11:52 | XMS_ITS | Encounter Summary ---
Author Organization [facility] and [facility] Address [address] [place] [address] Care Team Providers Care Dress Finisher Name Role Phone Caitlyn Bowie MD Primary Care Provider +1- [phone] Encounter Details Date Type Department Care Team (Late st Contact Info) Description 01/09/2019 Scanned Document [facility] Health Information Management [address] [place] [address] External, Provider Social History Tobacco Use Types [...] at [facility] 240 [facility] Building [address] [place] [address] Ronald Mills MD [address] [place] [address] [address]1 [place] [address] documented as of this encounter [...] documented as of this encounter Care Teams Dress Finisher Relationship Specialty Start Date End Date Caitlyn Bowie MD 3400 [facility] 1 [place] [address] PCP - General Internal Medicine 05/06/21 Henry Kelly MD Pulmonary Department 175 [facility], [address] [place] [address] Physician Pulmonary Disease 09/06/17 06/22/20 documented as of this encounter
--- OUTSIDE RECORDS SUMMARY | 2025-03-28 11:52 | XMS_ITS | Encounter Summary ---
Author Organization [facility] and [facility] Address [address] [place] [address] Care Team Providers Care Beer Coil Cleaner Name Role Phone Caitlyn Bowie MD Primary Care Provider +1- [phone] Encounter Details Date Type Department Care Team (Late st Contact Info) Description 04/25/2022 Scanned Document INTERFACE DEFAULT [address] [place] [address] System, Provider Not In Social History Tobacco [...] at [facility] 240 [facility] [address] [place] [address] Ronald Mills MD [address] [place] [address] [address]1 [place] [address] documented as of this encounter Visit Diagnoses Not on filedocumented in this encounter Additional Health Concerns Assessment Noted Time PHQ-9 Depression Total Score: 2 11/07/19 19 2:06 PM EDT documented as of this encounter Care Teams Beer Coil Cleaner Relationship Specialty Start Date End Date Caitlyn Bowie MD [address] [address] PCP - General Internal Medicine 05/06/21 documented as of this encounter
--- OUTSIDE RECORDS SUMMARY | 2025-03-28 11:52 | XMS_ITS | Encounter Summary ---
Author Organization [facility] and [facility] Address [address] [place] [address] Care Team Providers Care Rigging Slinger Name Role Phone Caitlyn Bowie MD Primary Care Provider +1- [phone] Encounter Details Date Type Department Care Team (Late st Contact Info) Description 12/16/2015 Scanned Document [facility] Health Information Management [address] [place] [address] External, Provider Social History Tobacco Use Types [...] at [facility] 240 [facility] Building [address] [place], [place] [phone] Ronald Mills MD 240 [facility] Max A1 [place] [address] documented as of this encounter Procedures Procedure Name Priority Date/Time Associated Diagnosis Comments US RESULT SCAN Routine 12/16/2015 documented in this encounter Results * US Result Scan (12/16/2015) us Provider External IMG SCAN REPORTS Edited Result - Final [facility] [place], [place], [facility] documented in this encounter Visit Diagnoses Not on filedocumented in this encounter Additional Health Concerns Infection Onset Date Last Indicated Resolved Time COVID-19 03/05/2022 03/05/2022 03/15/2022 7:18 PM EDT documented as of this encounter Care Teams Rigging Slinger Relationship Specialty Start Date End Date Caitlyn Bowie MD 3400 [facility] Max 1 [place] [address] PCP - General Internal Medicine 05/06/21 Henry Kelly MD Pulmonary Department 175 [facility], [address] [place] [address] Physician Pulmonary Disease 09/06/17 06/22/20 documented as of this encounter
--- OUTSIDE RECORDS SUMMARY | 2025-03-28 11:52 | XMS_ITS | Clinical Summary ---
Author Organization [facility] Address [address] [place] [address] Care Team Providers Care Model And Pattern Supervisor Name Role Phone Caitlyn Bowie Primary Care Provider [phone] Allergies Active Allergy Reactions Criticality Noted Date [...] Throat tightness Throat tightness Throat tightness Ipratropium [place] Unknown Medium 12/18/2021 Isosorbide Mononitrate 11/23/2020 Other [...] & B [facility] Care Teams Model And Pattern Supervisor Relationship Specialty Start Date End Date Caitlyn Bowie [address] [place] [address] PCP - General Internal Medicine 07/18/22
--- OUTSIDE RECORDS SUMMARY | 2025-03-28 11:52 | XMS_ITS | Encounter Summary ---
Author Organization [facility] and [facility] Address [address] [place] [address] Care Team Providers Care Metal Bonding Assembler Name Role Phone Caitlyn Bowie MD Primary Care Provider +1- [phone] Encounter Details Date Type Department Care Team (Late st Contact Info) Description 04/11/2019 Scanned Document [facility] Information Management [address] [place] [address] External, Provider Social History Tobacco Use Types [...] [facility] Building [address] [place] [address] Ronald Mills MD [address] [place] [address] [address] [place] [address] documented as of this encounter [...] as of this encounter Care Teams Metal Bonding Assembler Relationship Specialty Start Date End Date Caitlyn Bowie MD 3400 [facility] 1 [place] [address] PCP - General Internal Medicine 05/06/21 Henry Kelly MD Pulmonary Department 175 [facility], [address] [place] [address] Physician Pulmonary Disease 09/06/17 06/22/20 documented as of this encounter
--- OUTSIDE RECORDS SUMMARY | 2025-03-28 11:52 | XMS_ITS | Encounter Summary ---
Author Organization [facility] and [facility] Address [address] [place] [address] Care Team Providers Care Chicken Cutter Name Role Phone Caitlyn Bowie MD Primary Care Provider +1- [phone] Reason for Visit * Reason Comments Results Encounter Details Date Type Department Care Team (Late st Contact Info) Description 03/15/2022 Telephone [facility] at [address] [address] Ronald Mills MD [address] [place] [address] Results Social History Tobacco Use Types [...] at [facility] 240 [facility] Building [address] [place], [place] [phone] Ronald Mills MD 240 [facility] Max [address] [place] [address] documented as of this encounter Visit Diagnoses Not on filedocumented in this encounter Additional Health Concerns Infection Onset Date Last Indicated Resolved Time COVID-19 03/05/2022 03/05/2022 03/15/2022 7:18 PM EDT Assessment Noted Time PHQ-9 Depression Total Score: 2 11/07/19 19 2:06 PM EDT documented as of this encounter Care Teams Chicken Cutter Relationship Specialty Start Date End Date Caitlyn Bowie MD [address] [address] PCP - General Internal Medicine 05/06/21 documented as of this encounter
--- OUTSIDE RECORDS SUMMARY | 2025-03-28 11:52 | XMS_ITS | Encounter Summary ---
Author Organization [facility] and [facility] Address [address] [place] [address] Care Team Providers Care Helper Electrical Name Role Phone Caitlyn Bowie MD Primary Care Provider +1- [phone] Encounter Details Date Type Department Care Team (Late st Contact Info) Description 04/18/2022 Scanned Document INTERFACE DEFAULT [address] [place] [address] System, Provider Not In Social History Tobacco [...] [facility] 240 [facility] Building [address] [place] [address] Ronald Mills MD [address] [place] [address] [address] [place] [address] documented as of this encounter Visit Diagnoses Not on filedocumented in this encounter Additional Health Concerns Assessment Noted Time PHQ-9 Depression Total Score: 2 11/07/19 19 2:06 PM EDT documented as of this encounter Care Teams Helper Electrical Relationship Specialty Start Date End Date Caitlyn Bowie MD [address] [address] PCP - General Internal Medicine 05/06/21 documented as of this encounter
--- OUTSIDE RECORDS SUMMARY | 2025-03-28 11:52 | XMS_ITS | Encounter Summary ---
Author Organization [facility] and [facility] Address [address] [place] [address] Care Team Providers Care Fingernail Sculpturer Name Role Phone Caitlyn Bowie MD Primary Care Provider +1- [phone] Encounter Details Date Type Department Care Team (Late st Contact Info) Description 01/30/2019 Scanned Document [facility] Health Information Management [address] [place] [address] External, Provider Social History Tobacco Use Types [...] [facility] 240 [facility] Building [address] [place] [address] Ronald iMlls MD [address] [place] [address] [address]1 [place] [address] documented as of this encounter [...] documented as of this encounter Care Teams Fingernail Sculpturer Relationship Specialty Start Date End Date Caitlyn Bowie MD 3400 [facility] 1 [place] [address] PCP - General Internal Medicine 05/06/21 Henry Kelly MD Pulmonary Department 175 [facility], [address] [place] [address] Physician Pulmonary Disease 09/06/17 06/22/20 documented as of this encounter
--- OUTSIDE RECORDS SUMMARY | 2025-03-28 11:52 | XMS_ITS | Encounter Summary ---
Author Organization [facility] and [facility] Address [address] [place] [address] Care Team Providers Care Certified Welder Name Role Phone Caitlyn Bowie MD Primary Care Provider +1- [phone] Encounter Details Date Type Department Care Team (Late st Contact Info) Description 04/13/2022 Scanned Document INTERFACE DEFAULT [address] [place] [address] System, Provider Not In Social History Tobacco [...] [facility] [place] 240 [facility] Building [address] [place], [place] [phone] Ronald Mills MD [address] [place] [address] [address] [place] [address] documented as of this [...] as of this encounter Care Teams Certified Welder Relationship Specialty Start Date End Date Caitlyn Bowie MD [address] [address] PCP - General Internal Medicine 05/06/21 documented as of this encounter
--- OUTSIDE RECORDS SUMMARY | 2025-03-28 11:52 | XMS_ITS | Encounter Summary ---
Author Organization [facility] and [facility] Address [address] [place] [address] Care Team Providers Care Air Duct Mechanic Name Role Phone Caitlyn Bowie MD Primary Care Provider +1- [phone] Encounter Details Date Type Department Care Team (Late st Contact Info) Description 02/08/2016 Scanned Document [facility] Health Information Management [address] [place] [address] External, Provider Social History Tobacco Use Types [...] [facility] 240 [facility] Building [address] [place], [place] [address] Ronald Mills MD 240 [facility] A1 [place] [address] documented as of this encounter Visit Diagnoses Not on filedocumented in this encounter Additional Health Concerns Infection Onset Date Last Indicated Resolved Time COVID-19 03/05/2022 03/05/2022 03/15/2022 7:18 PM EDT documented as of this encounter Care Teams Air Duct Mechanic Relationship Specialty Start Date End Date Caitlyn Bowie MD 34[address] [facility] 1 [place] [address] PCP - General Internal Medicine 05/06/21 Henry Kelly MD Pulmonary Department 175 [facility], [address] [place] [address] Physician Pulmonary Disease 09/06/17 06/22/20 documented as of this encounter
--- OUTSIDE RECORDS SUMMARY | 2025-03-28 11:52 | XMS_ITS | Encounter Summary ---
Author Organization [facility] and [facility] Address [address] [place] [address] Care Team Providers Care Railcar Switcher Name Role Phone Caitlyn Bowie MD Primary Care Provider +1- [phone] Encounter Details Date Type Department Care Team (Late st Contact Info) Description 01/28/2019 Scanned Document Cardiovascular Medicine at [address] [place] [address] Cristian Arreguin MBBS [address] [place] [address] Social History Tobacco Use Types [...] 4:00 PM EDT Telemedicine Cancer Center at [address] [place] [address] Ronald Mills MD [address] [place] [address] [address] [place] [address] documented as of this encounter Visit Diagnoses Not on filedocumented in this encounter Additional Health Concerns Infection Onset Date Last Indicated Resolved Time COVID-19 03/05/2022 03/05/2022 03/15/2022 7:18 PM EDT Assessment Noted Time PHQ-9 Depression Total Score: 2 11/07/19 19 2:06 PM EDT documented as of this encounter Care Teams Railcar Switcher Relationship Specialty Start Date End Date Caitlyn Bowie MD 3400 [facility] 1 [place] [address] PCP - General Internal Medicine 05/06/21 Henry Kelly MD Pulmonary Department [address] [place] [address], [address] [place] [address] Physician Pulmonary Disease 09/06/17 06/22/20 documented as of this encounter
--- OUTSIDE RECORDS SUMMARY | 2025-03-28 11:52 | XMS_ITS | Encounter Summary ---
Author Organization [facility] Address [address] [place] [address] Care Team Providers Care President College [employer] Name Role Phone Caitlyn Bowie MD Primary Care Provider +1- [phone] Encounter Details Date Type Department Care Team (Late st Contact Info) Description 03/20/2023 Scanned Document [facility] [address] [place] [address] Caitlyn Bowie MD [address] [place] [address] Social History Tobacco Use Types Packs/Day Years [...] on filedocumented in this encounter Care Teams President College Or University Relationship Specialty Start Date End Date Caitlyn Bowie MD [address]00 [place] [address] PCP - General Internal Medicine 03/20/23 documented as of this encounter
--- OUTSIDE RECORDS SUMMARY | 2025-03-28 11:52 | XMS_ITS | Encounter Summary ---
Author Organization [facility] and [facility] Address [address] [place] [address] Care Team Providers Care Programming Intern Name Role Phone Caitlyn Bowie MD Primary Care Provider +1- [phone] Encounter Details Date Type Department Care Team (Late st Contact Info) Description 01/08/2019 Scanned Document [facility] Health Information Management [address] [place] [address] External, Provider Social History Tobacco Use Types [...] [facility] 240 [facility] Building [address] [place] [address] Ronald Mills MD [address] [place] [address] [address] [place] [address] documented as of this encounter [...] as of this encounter Care Teams Programming Intern Relationship Specialty Start Date End Date Caitlyn Bowie MD 3400 [facility] 1 [place] [address] PCP - General Internal Medicine 05/06/21 Henry Kelly MD Pulmonary Department 175 [facility], [address] [place] [address] Physician Pulmonary Disease 09/06/17 06/22/20 documented as of this encounter
--- OUTSIDE RECORDS SUMMARY | 2025-03-28 11:52 | XMS_ITS | Encounter Summary ---
Author Organization [facility] and [facility] Address [address] [place] [address] Care Team Providers Care Optical Assistant Name Role Phone Caitlyn Bowie MD Primary Care Provider +1- [phone] Encounter Details Date Type Department Care Team (Late st Contact Info) Description 11/03/2015 Scanned Document [facility] Health Information Management [address] [place] [address] External, Provider Social History Tobacco Use Types [...] [facility] 240 [facility] Building [address] [place], [place] [id number] Ronald Mills MD 240 [facility] [address] [place] [address] documented as of this encounter Procedures Procedure Name Priority Date/Time Associated Diagnosis Comments US RESULT SCAN Routine 11/03/2015 documented in this encounter Results * US Result Scan (11/03/2015) us Provider External IMG SCAN REPORTS Edited Result - Final [facility] [place], [place], [facility] documented in this encounter Visit Diagnoses Not on filedocumented in this encounter Additional Health Concerns Infection Onset Date Last Indicated Resolved Time COVID-19 03/05/2022 03/05/2022 03/15/2022 7:18 PM EDT documented as of this encounter Care Teams Optical Assistant Relationship Specialty Start Date End Date Caitlyn Bowie MD 3400 [facility] Max 1 [place] [address] PCP - General Internal Medicine 05/06/21 Henry Kelly MD Pulmonary Department 175 [facility], [address] [place] [address] Physician Pulmonary Disease 09/06/17 06/22/20 documented as of this encounter
--- OUTSIDE RECORDS SUMMARY | 2025-03-28 11:52 | XMS_ITS | Encounter Summary ---
Author Organization [facility] and [facility] Address [address] [place] [address] Care Team Providers Care End Trimmer Name Role Phone Caitlyn Bowie MD Primary Care Provider +1- [phone] Encounter Details Date Type Department Care Team (Late st Contact Info) Description 01/26/2019 Scanned Document [facility] Health Information Management [address] [place] [address] External, Provider Social History Tobacco Use Types [...] [facility] 240 [facility] Building [address] [place] [address] Ronald Mills MD [address] [place] [address] [address]1 [place] [address] documented as of this encounter [...] as of this encounter Care Teams End Trimmer Relationship Specialty Start Date End Date Caitlyn Bowie MD 3400 [facility] 1 [place] [address] PCP - General Internal Medicine 05/06/21 Henry Kelly MD Pulmonary Department 175 [facility], [address] [place] [address] Physician Pulmonary Disease 09/06/17 06/22/20 documented as of this encounter
--- OUTSIDE RECORDS SUMMARY | 2025-03-28 11:52 | XMS_ITS | Encounter Summary ---
Author Organization [facility] and [facility] Address [address] [place] [address] Care Team Providers Care Director Data Name Role Phone Caitlyn Bowie MD Primary Care Provider +1- [phone] Encounter Details Date Type Department Care Team (Late st Contact Info) Description 02/06/2019 Scanned Document [facility] Health Information Management [address] [place] [address] External, Provider Social History Tobacco Use Types [...] [facility] 240 [facility] Building [address] [place] [address] Ronald Mills MD [address] [place] [address] [address] [place] [address] documented as of this encounter [...] as of this encounter Care Teams Director Data Relationship Specialty Start Date End Date Caitlyn Bowie MD 3400 [facility] 1 [place] [address] PCP - General Internal Medicine 05/06/21 Henry Kelly MD Pulmonary Department 175 [facility], [address] [place] [address] Physician Pulmonary Disease 09/06/17 06/22/20 documented as of this encounter
--- OUTSIDE RECORDS SUMMARY | 2025-03-28 11:52 | XMS_ITS | Encounter Summary ---
Author Organization [facility] and [facility] Address [address] [place] [address] Care Team Providers Care Roustabout Crew Name Role Phone Caitlyn Bowie MD Primary Care Provider +1- [phone] Encounter Details Date Type Department Care Team (Late st Contact Info) Description 04/12/2022 Scanned Document INTERFACE DEFAULT [address] [place] [address] System, Provider Not In Social History Tobacco [...] at [facility] 240 [facility] [address] [place] [address] Ronald Mills MD [address] [place] [address] [address] [place] [address] documented as of this encounter [...] documented as of this encounter Care Teams Roustabout Crew Relationship Specialty Start Date End Date Caitlyn Bowie MD [address] [address] PCP - General Internal Medicine 05/06/21 documented as of this encounter
--- OUTSIDE RECORDS SUMMARY | 2025-03-28 11:52 | XMS_ITS | Encounter Summary ---
Author Organization [facility] and [facility] Address [address] [place] [address] Care Team Providers Care Crime Scene Analyst Name Role Phone Caitlyn Bowie MD Primary Care Provider +1- [phone] Encounter Details Date Type Department Care Team (Late st Contact Info) Description 12/31/2015 Scanned Document [facility] [address] [place] [address] External, Provider Social History Tobacco Use Types [...] [facility] 240 [facility] Building [address] [place], [place] [address] Ronald Mills MD [address] [place] [address] [address] [place] [address] documented as of this encounter Procedures Procedure Name Priority Date/Time Associated Diagnosis Comments LAB SCAN Routine 12/31/2015 documented in this encounter Results * Lab Scan (12/31/2015) Blood specimen (specimen) us Provider External LAB BLOOD ORDERABLES Final Res ult Performing Organization Address City/State/[facility] Co de Phone Number [facility] documented in this encounter Visit Diagnoses Not on filedocumented in this encounter Additional Health Concerns Infection Onset Date Last Indicated Resolved Time COVID-19 03/05/2022 03/05/2022 03/15/2022 7:18 PM EDT documented as of this encounter Care Teams Crime Scene Analyst Relationship Specialty Start Date End Date Caitlyn Bowie MD 3400 [facility] 1 [place] [address] PCP - General Internal Medicine 05/06/21 Henry Kelly MD Pulmonary Department 175 [facility], [address] [place] [address] Physician Pulmonary Disease 09/06/17 06/22/20 documented as of this encounter
--- OUTSIDE RECORDS SUMMARY | 2025-03-28 11:52 | XMS_ITS | Encounter Summary ---
Author Organization [facility] Address [address] [place] [address] Care Team Providers Care Venture Capital Analyst Name Role Phone Caitlyn Bowie MD Primary Care Provider +1- [phone] Encounter Details Date Type Department Care Team (Late st Contact Info) Description 04/22/2019 Scanned Document [facility] Health Information Management [address] [place] [address] External, Provider Social History Tobacco Use Types [...] [facility] Building [address] [place] [address] Ronald Mills MD [address] [place] [address] [address] [place] [address] documented as of this encounter Visit Diagnoses Not on filedocumented in this encounter Additional Health Concerns Infection Onset Date Last Indicated Resolved Time COVID-19 03/05/2022 03/05/2022 03/15/2022 7:18 PM EDT Assessment Noted Time PHQ-9 Depression Total Score: 2 11/07/19 19 2:06 PM EDT documented as of this encounter Care Teams Venture Capital Analyst Relationship Specialty Start Date End Date Caitlyn Bowie MD 3400 [facility] 1 [place] [address] PCP - General Internal Medicine 05/06/21 Henry Kelly MD Pulmonary Department 175 [facility], [address] [place] [address] Physician Pulmonary Disease 09/06/17 06/22/20 documented as of this encounter
--- OUTSIDE RECORDS SUMMARY | 2025-03-28 11:52 | XMS_ITS | Encounter Summary ---
Author Organization [facility] Address [address] [place] [address] Care Team Providers Care Brine Mixer Operator Name Role Phone Cristofer Hope MD Primary Care Provider Victorino Read MD Primary Care Provider UnavailSharon Kimbrough Primary Care Provider Unava ilBrennan Newman MD Primary Care Provider Unavailab Hayden Montes MD Unavailable [phone] Pallavi Flood NP Unavailable [phone]- [phone] Caitlyn Bowie MD Primary Care Provider Unaailyn shaver Encounter Details Date Type Department Care Team Description 05/18/2017 Release of Information Medical Records [address] [place] [address] Abstract, Provider Social History Tobacco Use Types [...] on filedocumented in this encounter Care Teams Brine Mixer Operator Relationship Specialty Start Date End Date Cristofer Hope MD PCP - General Internal Medicine 05/16/17 12/20/17 Victorino Martin MD PCP - General Internal Medicine 12/21/17 08/01/18 Sharon Vides PCP - General Internal Medicine 08/02/18 05/26/20 Brennan Burnett MD PCP - General Internal Medicine 05/27/20 12/07/21 Caitlyn Bowie MD [address] [place] [address] PCP - General Internal Medicine 12/08/21 Hayden Shah MD [address] [place] [address] Specialist Cardiovascular Disease 09/01/20 Pallavi Flood NP [address] [place] [address] Cardiology 09/01/20 documented as of this encounter
--- OUTSIDE RECORDS SUMMARY | 2025-03-28 11:52 | XMS_ITS | Encounter Summary ---
Author Organization [facility] and [facility] Address [address] [place] [address] Care Team Providers Care Meat Washer Name Role Phone Caitlyn Bowie MD Primary Care Provider +1- [phone] Encounter Details Date Type Department Care Team (Late st Contact Info) Description 01/08/2022 Scanned Document INTERFACE DEFAULT [address] [place] [address] System, Provider Not In Social History Tobacco [...] [facility] 240 [facility] Building [address] [place], [place] [address] Ronald Mills MD [address] [place] [address] [address] [place] [address] documented as of this encounter [...] as of this encounter Care Teams Meat Washer Relationship Specialty Start Date End Date Caitlyn Bowie MD [address] [address] PCP - General Internal Medicine 05/06/21 documented as of this encounter
--- OUTSIDE RECORDS SUMMARY | 2025-03-28 11:52 | XMS_ITS | Encounter Summary ---
Author Organization [facility] and [facility] Address [address] [place] [address] Care Team Providers Care Patient Ombudsperson Name Role Phone Caitlyn Bowie MD Primary Care Provider +1- [phone] Encounter Details Date Type Department Care Team (Late st Contact Info) Description 01/17/2019 Scanned Document [facility] Health Information Management [address] [place] [address] External, Provider Social History Tobacco Use Types [...] [facility] 240 [facility] Building [address] [place] [address] Ronald Mills MD [address] [place] [address] [address] [place] [address] documented as of this encounter [...] as of this encounter Care Teams Patient Ombudsperson Relationship Specialty Start Date End Date Caitlyn Bowie MD 3400 [facility] 1 [place] [address] PCP - General Internal Medicine 05/06/21 Henry Kelly MD Pulmonary Department 175 [facility], [address] [place] [address] Physician Pulmonary Disease 09/06/17 06/22/20 documented as of this encounter
--- OUTSIDE RECORDS SUMMARY | 2025-03-28 11:52 | XMS_ITS | Encounter Summary ---
Author Organization [facility] and [facility] Address [address] [place] [address] Care Team Providers Care Tray Drier Name Role Phone Caitlyn Bowie MD Primary Care Provider +1- [phone] Encounter Details Date Type Department Care Team (Late st Contact Info) Description 01/28/2019 Scanned Document [facility] Health Information Management [address] [place] [address] External, Provider Social History Tobacco Use Types [...] [facility] 240 [facility] Building [address] [place] [address] Ronald Mills MD [address] [place] [address] [address]1 [place] [address] documented as of this encounter Visit Diagnoses Not on filedocumented in this encounter Additional Health Concerns Infection Onset Date Last Indicated Resolved Time COVID-19 03/05/2022 03/05/2022 03/15/2022 7:18 PM EDT Assessment Noted Time PHQ-9 Depression Total Score: 2 11/07/19 19 2:06 PM EDT documented as of this encounter Care Teams Tray Drier Relationship Specialty Start Date End Date Caitlyn Bowie MD 3400 [facility] 1 [place] [address] PCP - General Internal Medicine 05/06/21 Henry Kelly MD Pulmonary Department 175 [facility], [address] [place] [address] Physician Pulmonary Disease 09/06/17 06/22/20 documented as of this encounter
--- OUTSIDE RECORDS SUMMARY | 2025-03-28 11:52 | XMS_ITS | Encounter Summary ---
Author Organization [facility] Address [address] [place] [address] Care Team Providers Care Tyre Retreader Name Role Phone Pcp, No Primary Care Provider Brennan Mario MD Primary Care Provider [phone] Caitlyn Bowie MD Primary Care Provider +1- [phone] Encounter Details Date Type Department Care Team (Late st Contact Info) Description 01/04/2022 Scanned Document [facility] Neurology Ophthalmology [address] [address] Yary Whitten DO [address] [place] [address] Social History Tobacco Use Types Packs/Day [...] filedocumented in this encounter Care Teams Tyre Retreader Relationship Specialty Start Date End Date Pcp, No PCP - General General Medicine 10/04/21 07/18/22 Brennan Burnett MD [address] [place] [address] PCP - General 07/19/22 03/19/23 Caitlyn Bowie MD [address] [place] [address] PCP - General Internal Medicine 03/20/23 documented as of this encounter
--- OUTSIDE RECORDS SUMMARY | 2025-03-28 11:52 | XMS_ITS | Encounter Summary ---
Author Organization [facility] and [facility] Address [address] [place] [address] Care Team Providers Care Scientific Diver Name Role Phone Caitlyn Bowie MD Primary Care Provider +1- [phone] Encounter Details Date Type Department Care Team (Late st Contact Info) Description 04/19/2022 Scanned Document INTERFACE DEFAULT [address] [place] [address] System, Provider Not In Social History Tobacco [...] [facility] 240 [facility] Building [address] [place], [place] [address] Ronald Mills MD [address] [place] [address] [address] [place] [address] documented as of this encounter [...] documented as of this encounter Care Teams Scientific Diver Relationship Specialty Start Date End Date Caitlyn Bowie MD [address] [address] PCP - General Internal Medicine 05/06/21 documented as of this encounter
[2025-03-28 11:53] LABS: MANUAL DIFF FLAG NO
--- OUTSIDE RECORDS SUMMARY | 2025-03-28 11:53 | XMS_ITS | Encounter Summary ---
Author Organization [facility] and [facility] Address [address] [place] [address] Care Team Providers Care Supply Chain Technician Name Role Phone Caitlyn Bowie MD Primary Care Provider +1- [phone] Encounter Details Date Type Department Care Team (Late st Contact Info) Description 07/27/2016 Scanned Document Thoracic Oncology Program at [address] [address] Suzy Kong MD [address] [place] [address] Social History Tobacco Use Types Packs/Day [...] PM EDT [facility] at [address] [place], [place] [address] Ronald Mills MD 240 [facility] Max [address] [place] [address] documented as of this encounter Visit Diagnoses Not on filedocumented in this encounter Additional Health Concerns Infection Onset Date Last Indicated Resolved Time COVID-19 03/05/2022 03/05/2022 03/15/2022 7:18 PM EDT documented as of this encounter Care Teams Supply Chain Technician Relationship Specialty Start Date End Date Caitlyn Bowie MD 3400 [facility] Max 1 [place] [address] PCP - General Internal Medicine 05/06/21 Henry Kelly MD Pulmonary Department 175 [facility], [address] [place] [address] Physician Pulmonary Disease 09/06/17 06/22/20 documented as of this encounter
--- OUTSIDE RECORDS SUMMARY | 2025-03-28 11:53 | XMS_ITS | Encounter Summary ---
Author Organization [facility] Address [address] [place] [address] Care Team Providers Care Photo Engraver Name Role Phone Caitlyn Bowie MD Primary Care Provider +1- [phone] Encounter Details Date Type Department Care Team (Late st Contact Info) Description 09/15/2024 Scanned Document INTERFACE DEFAULT [address] [place] [address] System, Provider Not In Social History Tobacco [...] [facility] 240 [facility] Building [address] [place], [place] [address] Ronald Mills MD [address] [place] [address] [address] [place] [address] documented as of this encounter [...] documented as of this encounter Care Teams Photo Engraver Relationship Specialty Start Date End Date Caitlyn Bowie MD [address] [address] PCP - General Internal Medicine 05/06/21 documented as of this encounter
--- OUTSIDE RECORDS SUMMARY | 2025-03-28 11:53 | XMS_ITS | Encounter Summary ---
Author Organization [facility] and [facility] Address [address] [place] [address] Care Team Providers Care Customer Supply Coordinator Name Role Phone Caitlyn Bowie MD Primary Care Provider +1- [phone] Encounter Details Date Type Department Care Team (Late st Contact Info) Description 12/14/2016 Scanned Document [facility] Health Information Management [address] [place] [address] External, Provider Social History Tobacco Use Types [...] [facility] 240 [facility] Building [address] [place], [place] [address] Ronald Mills MD 240 [facility] Max [address] [place] [address] documented as [...] as of this encounter Care Teams Customer Supply Coordinator Relationship Specialty Start Date End Date Caitlyn Bowie MD 3400 [facility] 1 [place] [address] PCP - General Internal Medicine 05/06/21 Henry Kelly MD Pulmonary Department 175 [facility], [address] [place] [address] Physician Pulmonary Disease 09/06/17 06/22/20 documented as of this encounter
--- OUTSIDE RECORDS SUMMARY | 2025-03-28 11:53 | XMS_ITS | Encounter Summary ---
Author Organization [facility] and [facility] Address [address] [place] [address] Care Team Providers Care Senior Investment Manager Name Role Phone Caitlyn Bowie MD Primary Care Provider +1- [phone] Encounter Details Date Type Department Care Team (Late st Contact Info) Description 09/23/2024 Scanned Document INTERFACE DEFAULT [address] [place] [address] System, Provider Not In Social History Tobacco [...] [facility] 240 [facility] Building [address] [place], [place] [address] Ronald Mills MD [address] [place] [address] [address] [place] [address] documented as of this encounter [...] as of this encounter Care Teams Senior Investment Manager Relationship Specialty Start Date End Date Caitlyn Bowie MD [address] [address] PCP - General Internal Medicine 05/06/21 documented as of this encounter
--- OUTSIDE RECORDS SUMMARY | 2025-03-28 11:53 | XMS_ITS | Encounter Summary ---
Author Organization [facility] and [facility] Address [address] [place] [address] Care Team Providers Care Electric Crane Operator Name Role Phone Caitlyn Bowie MD Primary Care Provider +1- [phone] Encounter Details Date Type Department Care Team (Late st Contact Info) Description 12/16/2016 Scanned Document [facility] Health Information Management [address] [place] [address] External, Provider Social History Tobacco Use Types [...] [facility] 240 [facility] Building [address] [place], [place] [address] Ronald Mills MD 240 [facility] Max [address] [place] [address] documented as of this encounter [...] as of this encounter Care Teams Electric Crane Operator Relationship Specialty Start Date End Date Caitlyn Bowie MD 3400 [facility] 1 [place] [address] PCP - General Internal Medicine 05/06/21 Henry Kelly MD Pulmonary Department 175 [facility], [address] [place] [address] Physician Pulmonary Disease 09/06/17 06/22/20 documented as of this encounter
--- OUTSIDE RECORDS SUMMARY | 2025-03-28 11:53 | XMS_ITS | Encounter Summary ---
Author Organization [facility] and [facility] Address [address] [place] [address] Care Team Providers Care Employment Manager Name Role Phone Caitlyn Bowie MD Primary Care Provider +1- [phone] Encounter Details Date Type Department Care Team (Late st Contact Info) Description 12/14/2016 Scanned Document [facility] Health Information Management [address] [place] [address] External, Provider Social History Tobacco Use Types [...] Center at [facility] 240 [facility] Building [address] [place], [place] [address] Ronald Mills MD 240 [facility] A1 [place] [address] documented as of this encounter Visit Diagnoses Not on filedocumented in this encounter Additional Health Concerns Infection Onset Date Last Indicated Resolved Time COVID-19 03/05/2022 03/05/2022 03/15/2022 7:18 PM EDT documented as of this encounter Care Teams Employment Manager Relationship Specialty Start Date End Date Caitlyn Bowie MD 3400 [facility] 1 [place] [address] PCP - General Internal Medicine 05/06/21 Henry Kelly MD Pulmonary Department 175 [facility], [address] [place] [address] Physician Pulmonary Disease 09/06/17 06/22/20 documented as of this encounter
--- OUTSIDE RECORDS SUMMARY | 2025-03-28 11:53 | XMS_ITS | Encounter Summary ---
Author Organization [facility] and [facility] Address [address] [place] [address] Care Team Providers Care Aoc Director Combat Plans Officer Name Role Phone Caitlyn Bowie MD Primary Care Provider +1- [phone] Encounter Details Date Type Department Care Team (Late st Contact Info) Description 09/09/2024 Scanned Document INTERFACE DEFAULT [address] [place] [address] System, Provider Not In Social History Tobacco [...] [facility] Building [address] [place], [place] [address] Ronald Mills MD [address] [place] [address] [address] [place] [address] documented as of this encounter [...] as of this encounter Care Teams Aoc Director Combat Plans Officer Relationship Specialty Start Date End Date Caitlyn Bowie MD [address] [address] PCP - General Internal Medicine 05/06/21 documented as of this encounter
--- OUTSIDE RECORDS SUMMARY | 2025-03-28 11:53 | XMS_ITS | Encounter Summary ---
Author Organization [facility] and [facility] Address [address] [place] [address] Care Team Providers Care Commercial Helicopter Pilot Name Role Phone Caitlyn Bowie MD Primary Care Provider +1- [phone] Encounter Details Date Type Department Care Team (Late st Contact Info) Description 07/08/2016 Scanned Document [facility] Health Information Management [address] [place] [address] External, Provider Social History Tobacco Use Types [...] Health – [facility] 240 [facility] [address] [place], [place] [id number] Ronald Mills MD 240 [facility] [address] [place] [address] documented as of this encounter Procedures Procedure Name Priority Date/Time Associated Diagnosis Comments LAB SCAN Routine 07/08/2016 documented in this encounter Results * Lab Scan (07/08/2016) Blood specimen (specimen) us Provider External LAB BLOOD ORDERABLES Final Res ult [facility] documented in this encounter Visit Diagnoses Not on filedocumented in this encounter Additional Health Concerns Infection Onset Date Last Indicated Resolved Time COVID-19 03/05/2022 03/05/2022 03/15/2022 7:18 PM EDT documented as of this encounter Care Teams Commercial Helicopter Pilot Relationship Specialty Start Date End Date Caitlyn Bowie MD 3400 [facility] 1 [place] [address] PCP - General Internal Medicine 05/06/21 Henry Kelly MD Pulmonary Department 175 [facility], [address] [place] [address] Physician Pulmonary Disease 09/06/17 06/22/20 documented as of this encounter
--- OUTSIDE RECORDS SUMMARY | 2025-03-28 11:53 | XMS_ITS | Encounter Summary ---
Author Organization [facility] and [facility] Address [address] [place] [address] Care Team Providers Care Anesthesiologist Assistant Name Role Phone Caitlyn Bowie MD Primary Care Provider +1- [phone] Encounter Details Date Type Department Care Team (Late st Contact Info) Description 12/28/2018 Scanned Document [facility] Health Information Management [address] [place] [address] External, Provider Social History Tobacco Use Types [...] Telemedicine Cancer Center at [facility] 240 [facility] [address] [place] [address] Ronald Mills MD [address] [place] [address] [address] [place] [address] documented as of this encounter [...] documented as of this encounter Care Teams Anesthesiologist Assistant Relationship Specialty Start Date End Date Caitlyn Bowie MD 3400 [facility] Max 1 [place] [address] PCP - General Internal Medicine 05/06/21 Henry Kelly MD Pulmonary Department 175 [facility], [address] [place] [address] Physician Pulmonary Disease 09/06/17 06/22/20 documented as of this encounter
--- OUTSIDE RECORDS SUMMARY | 2025-03-28 11:53 | XMS_ITS | Encounter Summary ---
Author Organization [facility] and [facility] Address [address] [place] [address] Care Team Providers Care Manipulative Therapy Specialist Name Role Phone Caitlyn Bowie MD Primary Care Provider +1- [phone] Encounter Details Date Type Department Care Team (Late st Contact Info) Description 06/17/2016 Scanned Document [facility] Health Information Management [address] [place] [address] External, Provider Social History Tobacco Use Types [...] Center at [facility] 240 [facility] Building [address] [place], [place] [phone] Ronald Mills MD 240 [facility] [address] [place] [address] documented as of this encounter Procedures Procedure Name Priority Date/Time Associated Diagnosis Comments XRAY RESULT SCAN Routine 06/17/2016 documented in this encounter Results * Xray Result Scan (06/17/2016) us Provider External IMG SCAN REPORTS Final Result [facility] [place], [facility] documented in this encounter Visit Diagnoses Not on filedocumented in this encounter Additional Health Concerns Infection Onset Date Last Indicated Resolved Time COVID-19 03/05/2022 03/05/2022 03/15/2022 7:18 PM EDT documented as of this encounter Care Teams Manipulative Therapy Specialist Relationship Specialty Start Date End Date Caitlyn Bowie MD 3400 [facility] 1 [place] [address] PCP - General Internal Medicine 05/06/21 Henry Kelly MD Pulmonary Department [address] [place] [address], [address] [place] [address] Physician Pulmonary Disease 09/06/17 06/22/20 documented as of this encounter
--- OUTSIDE RECORDS SUMMARY | 2025-03-28 11:53 | XMS_ITS | Encounter Summary ---
Author Organization [facility] and [facility] Address [address] [place] [address] Care Team Providers Care Superintendent Building Name Role Phone Caitlyn Bowie MD Primary Care Provider +1- [phone] Encounter Details Date Type Department Care Team (Late st Contact Info) Description 04/04/2016 Scanned Document [facility] Health Information Management [address] [place] [address] External, Provider Social History Tobacco Use Types [...] at [facility] 240 [facility] [address] [place], [place] [phone] Ronald Mills MD 240 [facility] Max [address] [place] [address] documented as of this encounter Procedures Procedure Name Priority Date/Time Associated Diagnosis Comments LAB SCAN Routine 04/04/2016 documented in this encounter Results * Lab Scan (04/04/2016) Blood specimen (specimen) us Provider External LAB BLOOD ORDERABLES Final Res ult [facility] documented in this encounter Visit Diagnoses Not on filedocumented in this encounter Additional Health Concerns Infection Onset Date Last Indicated Resolved Time COVID-19 03/05/2022 03/05/2022 03/15/2022 7:18 PM EDT documented as of this encounter Care Teams Superintendent Building Relationship Specialty Start Date End Date Caitlyn Bowie MD 3400 [facility] 1 [place] [address] PCP - General Internal Medicine 05/06/21 Henry Kelly MD Pulmonary Department 175 [facility], [address] [place] [address] Physician Pulmonary Disease 09/06/17 06/22/20 documented as of this encounter
--- OUTSIDE RECORDS SUMMARY | 2025-03-28 11:53 | XMS_ITS | Encounter Summary ---
Author Organization [facility] Address [address] [place] [address] Phone Care Team Providers Care Manager Technical Sales Name Role Phone Caitlyn Bowie MD Primary Care Provider +1- [phone] Encounter Details Date Type Department Care Team (Late st Contact Info) Description 10/01/2024 Documentation Only [facility] [address] [place] [address] Ron Taylor [place] [address] [place] [address] Social History Tobacco Use Types [...] [facility] [address] [place] [address] Rubén Ashraf MD [address] [place] [address] [place] [address] documented as of this encounter Visit Diagnoses Not on filedocumented in this encounter Care Teams Manager Technical Sales Relationship Specialty Start Date End Date Caitlyn Bowie MD [address] [place], [place] PCP - General Internal Medicine 09/24/24 documented as of this encounter
--- OUTSIDE RECORDS SUMMARY | 2025-03-28 11:53 | XMS_ITS | Encounter Summary ---
Author Organization [facility] and [facility] Address [address] [place] [address] Care Team Providers Care Aquaculture Worker Name Role Phone Caitlyn Bowie MD Primary Care Provider +1- [phone] Encounter Details Date Type Department Care Team (Late st Contact Info) Description 07/27/2016 Scanned Document Thoracic Oncology Program at [address] [address] Suzy Kong MD [address] [place] [address] Social History Tobacco Use Types Packs/Day [...] PM EDT Telemedicine Cancer Center at [address] [place], [place] [phone] Ronald Mills MD 240 [facility] Max [address] [place] [address] documented as of this encounter Visit Diagnoses Not on filedocumented in this encounter Additional Health Concerns Infection Onset Date Last Indicated Resolved Time COVID-19 03/05/2022 03/05/2022 03/15/2022 7:18 PM EDT documented as of this encounter Care Teams Aquaculture Worker Relationship Specialty Start Date End Date Caitlyn Bowie MD 3400 [facility] Max 1 [place] [address] PCP - General Internal Medicine 05/06/21 Henry Kelly MD Pulmonary Department 175 [facility], [address] [place] [address] Physician Pulmonary Disease 09/06/17 06/22/20 documented as of this encounter
--- OUTSIDE RECORDS SUMMARY | 2025-03-28 11:53 | XMS_ITS | Encounter Summary ---
Author Organization [facility] and [facility] Address [address] [place] [address] Care Team Providers Care Junior Systems Engineer Name Role Phone Caitlyn Bowie MD Primary Care Provider +1- [phone] Encounter Details Date Type Department Care Team (Late st Contact Info) Description 04/19/2024 Scanned Document INTERFACE DEFAULT [address] [place] [address] System, Provider Not In Social History Tobacco [...] at [facility] 240 [facility] Building [address] [place], [place] [phone] Ronald Mills MD [address] [place] [address] [address] [place] [address] documented as of this encounter [...] of this encounter Care Teams Junior Systems Engineer Relationship Specialty Start Date End Date Caitlyn Bowie MD [address] [address] PCP - General Internal Medicine 05/06/21 documented as of this encounter
--- OUTSIDE RECORDS SUMMARY | 2025-03-28 11:53 | XMS_ITS | Encounter Summary ---
Author Organization [facility] and [facility] Address [address] [place] [address] Care Team Providers Care Counseling Psychologist Name Role Phone Caitlyn Bowie MD Primary Care Provider +1- [phone] Reason for Referral * Imaging (Routine) - Closed Specialty Diagnoses / Procedures Referred By Contac t Referred To Contact Procedures NM Lung Ventilation Perfusion ([facility]) External, Provider Referral ID Status Reason Start Date Expiration Date Visits Re quested Visits Authorized [id number] Closed 08/22/2016 08/22/2017 4 4 Encounter Details Date Type Department Care Team (Late st Contact Info) Description 08/22/2016 Scanned Document Thoracic Oncology Program at [address] [address] External, Provider Social History Tobacco Use Types [...] PM EDT Telemedicine Cancer Center at [address] [place] [address] Ronald Mills MD [address] [place] [address] Rd [address] [place] [address] documented as of this encounter Procedures Procedure Name Priority Date/Time Associated Diagnosis Comments XRAY RESULT SCAN Routine 07/27/2016 CT RESULT SCAN Routine 07/27/2016 CT RESULT SCAN Routine 07/27/2016 CARDIAC EKG RESULT SCAN Routine 07/27/2016 LAB SCAN Routine 07/27/2016 NM LUNG VENTILATION PERFUSIO N ([facility]) Routine 07/27/2016 documented in this encounter Results * Xray Result Scan (07/27/2016) us Provider External IMG SCAN REPORTS Final Result Performing Organization Address [facility] Co de Phone Number [facility] * CT Result Scan (07/27/2016) us Provider External IMG SCAN REPORTS Final Result Performing Organization Address [facility] Co de Phone Number [facility] * Cardiac EKG Result Scan (07/27/2016) us Provider External CV CARDIAC REPORT (CVR) Final Result Performing Organization Address [facility] Co de Phone Number [facility] * CT Result Scan (07/27/2016) us Provider External IMG SCAN REPORTS Final Result Performing Organization Address [facility] Co de Phone Number [facility] * Lab Scan (07/27/2016) Blood specimen (specimen) us Provider External LAB BLOOD ORDERABLES Final Res ult Performing Organization Address [facility] Co de Phone Number [facility] * NM Lung Ventilation Perfusion ([facility]) (07/27/2016) Anatomical Region Laterality Modality Chest, Lung Nuclear Medicine us Provider External IMG NM ORDERABLES Final Result documented in this encounter Visit Diagnoses Not on filedocumented in this encounter Additional Health Concerns Infection Onset Date Last Indicated Resolved Time COVID-19 03/05/2022 03/05/2022 03/15/2022 7:18 PM EDT documented as of this encounter Care Teams Counseling Psychologist Relationship Specialty Start Date End Date Caitlyn Bowie MD 3400 [facility] 1 [place] [address] PCP - General Internal Medicine 05/06/21 Henry Kelly MD Pulmonary Department 175 [facility], [address] [place] [address] Physician Pulmonary Disease 09/06/17 06/22/20 documented as of this encounter
--- OUTSIDE RECORDS SUMMARY | 2025-03-28 11:53 | XMS_ITS | Encounter Summary ---
Author Organization [facility] and [facility] Address [address] [place] [address] Care Team Providers Care Physician Relations Representative Name Role Phone Caitlyn Bowie MD Primary Care Provider +1- [phone] Encounter Details Date Type Department Care Team (Late st Contact Info) Description 10/23/2024 Scanned Document INTERFACE DEFAULT [address] [place] [address] System, Provider Not In Social History Tobacco [...] – [facility] 240 [facility] Building [address] [place], [place] [phone] Ronald Mills MD [address] [place] [address] [address] [place] [address] documented as of this encounter [...] as of this encounter Care Teams Physician Relations Representative Relationship Specialty Start Date End Date Caitlyn Bowie MD [address] [address] PCP - General Internal Medicine 05/06/21 documented as of this encounter
--- OUTSIDE RECORDS SUMMARY | 2025-03-28 11:53 | XMS_ITS | Clinical Summary ---
Author Organization [facility] Address [address] [place] [address] Phone Care Team Providers Care Cyber Intel [...] (12/25/2021 4:22 PM EDT): Followed closely by plastic production machine setter-Dr. Ronald Mills at [facility] hematology- advised to continue Coumadin anticoagulation at [...] (09/09/2021 10:42 PM EST): Followed closely by plastic production machine setter-Dr. Ronald Mills at [facility] hematology- last seen on 08/05/2021 and advised [...] alternating low dosing as prescribed by her lab clerk and consider gentle taper when ready. Daily [...] alternating low dosing as prescribed by her lab clerk and consider gentle taper when ready. Daily [...] AM EDT Office Visit [facility] [address] [place] [address] Anna Ellis MD Acquired hypothyroidism (Primary Dx); Hyperparathyroidism; Age-related osteoporosis without current pathological fracture; Adrenal insufficiency 01/12/2025 Refill [facility] [address] [place] [address] Anna Ellis MD Medication Refill from Last [...] 11:40 AM EST Office Visit [facility] [address] [place] [address] [place], [place] [phone] Anna Ellis MD [address] [place] [address] Health Maintenance Due Date Last Done Comments [...] MD LAB BLOOD ORDERABLES F inal Result [facility] [address] [place] [address] from Last 3 Months or Most Recently Relevant to Health Maintenance Insurance MEDICARE PART A & B [facility] MEDEX SUPPLEMENT [facility] Address: [address] [place] [id number] HEALTH SAFETY NET FULL [facility] MEDICARE PART A & B [facility] MEDEX SUPPLEMENT [employer] SAFETY NET FULL MEDICARE PART A & B [facility] MEDEX SUPPLEMENT [facility] SAFETY NET FULL [facility] MEDICARE PART A & B [facility] MEDEX SUPPLEMENT HEALTH SAFETY NET FULL [facility] MEDICARE PART A & B [facility] MEDEX SUPPLEMENT [facility] FULL [facility] MEDICARE PART A & B Member Subscriber Plan / Payer (Ef fective 1999-Present) Name:Jovana Malik Member ID:[id number] Relation to Subscriber:Self Name:Jovana Malik Subscriber ID:[id number] Payer ID:[id number] Group ID:Not on file Type:Medicare Address: [facility] [employer] [facility] [address] [place] [address] [facility] MEDEX SUPPLEMENT [facility] FULL [facility] MEDICARE PART A & B [facility] MEDEX SUPPLEMENT [facility] NET FULL [facility] MEDICARE PART A & B [facility] MEDEX SUPPLEMENT [facility] NET FULL [facility] MEDICARE PART A & B Member Subscriber Plan / Payer (Ef fective 1999-Present) Name:Jovana Malik Member ID:[id number] Relation to Subscriber:Self Name:[place], Jovana J Subscriber ID:[id number] Payer ID:[id number] Group ID:Not on file Type:Medicare Address: [facility] [employer] [facility] [address] [place] [address] [facility] MEDEX SUPPLEMENT HEALTH SAFETY NET FULL [facility] Care Teams Cyber Intel Planner Relationship Specialty Start Date End Date Caitlyn Bowie MD [address] [place] [address] PCP - General Internal Medicine 09/09/21 Additional Source Comments The information contained in this document represents components of the legal health record. It is not the complete legal health record.[facility]
--- OUTSIDE RECORDS SUMMARY | 2025-03-28 11:53 | XMS_ITS | Encounter Summary ---
Author Organization [facility] and [facility] Address [address] [place] [address] Care Team Providers Care Accounting Methods Analyst Name Role Phone Caitlyn Bowie MD Primary Care Provider +1- [phone] Encounter Details Date Type Department Care Team (Late st Contact Info) Description 07/27/2016 Scanned Document Thoracic Oncology Program at [address] [address] Suzy Kong MD [address] [place] [address] Social History Tobacco Use Types Packs/Day [...] PM EDT Telemedicine Cancer Center at [address] [place], [place] [phone] Ronald Mills MD 240 [facility] Max [address] [place] [address] documented as of this encounter Visit Diagnoses Not on filedocumented in this encounter Additional Health Concerns Infection Onset Date Last Indicated Resolved Time COVID-19 03/05/2022 03/05/2022 03/15/2022 7:18 PM EDT documented as of this encounter Care Teams Accounting Methods Analyst Relationship Specialty Start Date End Date Caitlyn Bowie MD 3400 [facility] [address] 1 [place] [address] PCP - General Internal Medicine 05/06/21 Henry Kelly MD Pulmonary Department 175 [facility], [address] [place] [address] Physician Pulmonary Disease 09/06/17 06/22/20 documented as of this encounter
--- OUTSIDE RECORDS SUMMARY | 2025-03-28 11:53 | XMS_ITS | Encounter Summary ---
Author Organization [facility] and [facility] Address [address] [place] [address] Care Team Providers Care Director Employee Communications Name Role Phone Caitlyn Bowie MD Primary Care Provider +1- [phone] Encounter Details Date Type Department Care Team (Late st Contact Info) Description 06/17/2016 Scanned Document [facility] Health Information Management [address] [place] [address] External, Provider Social History Tobacco Use Types [...] – [facility] 240 [facility] Building [address] [place], [place] [phone] Ronald Mills MD 240 [facility] A1 [place] [address] documented as of this encounter Visit Diagnoses Not on filedocumented in this encounter Additional Health Concerns Infection Onset Date Last Indicated Resolved Time COVID-19 03/05/2022 03/05/2022 03/15/2022 7:18 PM EDT documented as of this encounter Care Teams Director Employee Communications Relationship Specialty Start Date End Date Caitlyn Bowie MD 3400 [facility] 1 [place] [address] PCP - General Internal Medicine 05/06/21 Henry Kelly MD Pulmonary Department 175 [facility], [address] [place] [address] Physician Pulmonary Disease 09/06/17 06/22/20 documented as of this encounter
--- OUTSIDE RECORDS SUMMARY | 2025-03-28 11:53 | XMS_ITS | Encounter Summary ---
Author Organization [facility] Address [address] [place] [address] Care Team Providers Care Powderman Name Role Phone Caitlyn Bowie MD Primary Care Provider +1- [phone] Encounter Details Date Type Department Care Team (Late st Contact Info) Description 12/27/2018 Scanned Document [facility] Health Information Management [address] [place] [address] External, Provider Social History Tobacco Use Types [...] [facility] 240 [facility] Building [address] [place] [address] Ronald Mills MD [address] [place] [address] [address] [place] [address] documented as of this encounter [...] documented as of this encounter Care Teams Powderman Relationship Specialty Start Date End Date Caitlyn Bowie MD 3400 [facility] 1 [place] [address] PCP - General Internal Medicine 05/06/21 Henry Kelly MD Pulmonary Department 175 [facility], [address] [place] [address] Physician Pulmonary Disease 09/06/17 06/22/20 documented as of this encounter
--- OUTSIDE RECORDS SUMMARY | 2025-03-28 11:53 | XMS_ITS | Encounter Summary ---
Author Organization [facility] Address [address] [place] [address] Care Team Providers Care Morning Caregiver Name Role Phone Caitlyn Bowie MD Primary Care Provider +1- [phone] Encounter Details Date Type Department Care Team (Late st Contact Info) Description 12/16/2016 Scanned Document [facility] Health Information Management [address] [place] [address] External, Provider Social History Tobacco Use Types [...] Medical Center Building [address] [place], [place] [phone] Ronald Mills MD 240 [facility] [address] [place] [address] documented as of this encounter [...] documented as of this encounter Care Teams Morning Caregiver Relationship Specialty Start Date End Date Caitlyn Bowie MD 3400 [facility] 1 [place] [address] PCP - General Internal Medicine 05/06/21 Henry Kelly MD Pulmonary Department 175 [facility], [address] [place] [address] Physician Pulmonary Disease 09/06/17 06/22/20 documented as of this encounter
--- OUTSIDE RECORDS SUMMARY | 2025-03-28 11:53 | XMS_ITS | Encounter Summary ---
Author Organization [facility] Address [address] [place] [phone] Care Team Providers Care Magazine Designer Name Role Phone Caitlyn Bowie MD Primary Care Provider +1- [phone] Encounter Details Date Type Department Care Team (Late st Contact Info) Description 04/23/2024 Scanned Document INTERFACE DEFAULT [address] [place] [id number] System, Provider Not In Social History Tobacco [...] [facility] [address] [facility] [address] [place], [place] [id number] Ronald Mills MD [address] [place] [address] [address] [place] [address] documented as of this encounter [...] as of this encounter Care Teams Magazine Designer Relationship Specialty Start Date End Date Caitlyn Bowie MD [address] [address] PCP - General Internal Medicine 05/06/21 documented as of this encounter
--- OUTSIDE RECORDS SUMMARY | 2025-03-28 11:53 | XMS_ITS | Encounter Summary ---
Author Organization [facility] and [facility] Address [address] [place] [phone] Care Team Providers Care Wood Fuel Pelletizer Name Role Phone Caitlyn Bowie MD Primary Care Provider +1- [phone] Encounter Details Date Type Department Care Team (Late st Contact Info) Description 08/08/2024 Scanned Document INTERFACE DEFAULT [address] [place] [phone] System, Provider Not In Social History Tobacco [...] – [facility] [address] [facility] [address] [place], [place] [id number] Ronald Mills MD [address] [place] [address] [address] [place] [address] documented as of this encounter [...] as of this encounter Care Teams Wood Fuel Pelletizer Relationship Specialty Start Date End Date Caitlyn Bowie MD [address] [address] PCP - General Internal Medicine 05/06/21 documented as of this encounter
--- OUTSIDE RECORDS SUMMARY | 2025-03-28 11:53 | XMS_ITS | Encounter Summary ---
Author Organization [facility] and [facility] Address [address] [place] [phone] Care Team Providers Care Service Officer Name Role Phone Caitlyn Bowie MD Primary Care Provider +1- [phone] Encounter Details Date Type Department Care Team (Late st Contact Info) Description 10/10/2016 Scanned Document [facility] Health Information Management [address] [place] [address] External, Provider Social History Tobacco Use Types [...] [facility] [address] [place], [place] [id number] Ronald Mills MD [address] [facility] [address] [place] [address] documented as of this encounter Visit Diagnoses Not on filedocumented in this encounter Additional Health Concerns Infection Onset Date Last Indicated Resolved Time COVID-19 03/05/2022 03/05/2022 03/15/2022 7:18 PM EDT documented as of this encounter Care Teams Service Officer Relationship Specialty Start Date End Date Caitlyn Bowie MD [address] [facility] 1 [place] [address] PCP - General Internal Medicine 05/06/21 Henry Kelly MD Pulmonary Department [address] [facility] [place] [address] Physician Pulmonary Disease 09/06/17 06/22/20 documented as of this encounter
--- OUTSIDE RECORDS SUMMARY | 2025-03-28 11:53 | XMS_ITS | Encounter Summary ---
Author Organization [facility] and [facility] Address [address] [place] [address] Care Team Providers Care Suspect Artist Supervisor Name Role Phone Caitlyn Bowie MD Primary Care Provider +1- [phone] Encounter Details Date Type Department Care Team (Late st Contact Info) Description 06/17/2016 Scanned Document [facility] Health Information Management [address] [place] [address] External, Provider Social History Tobacco Use Types [...] [facility] [address] [place], [place] [phone] Ronald Mills MD [address] [facility] [address] [place] [address] documented as of this encounter Visit Diagnoses Not on filedocumented in this encounter Additional Health Concerns Infection Onset Date Last Indicated Resolved Time COVID-19 03/05/2022 03/05/2022 03/15/2022 7:18 PM EDT documented as of this encounter Care Teams Suspect Artist Supervisor Relationship Specialty Start Date End Date Caitlyn Bowie MD [address] [facility] 1 [place] [address] PCP - General Internal Medicine 05/06/21 Henry Kelly MD Pulmonary Department [address] [facility] [place] [address] Physician Pulmonary Disease 09/06/17 06/22/20 documented as of this encounter
--- OUTSIDE RECORDS SUMMARY | 2025-03-28 11:53 | XMS_ITS | Encounter Summary ---
Author Organization [facility] and [facility] Address [address] [place] [phone] Care Team Providers Care Ticket Counter Name Role Phone Caitlyn Bowie MD Primary Care Provider +1- [phone] Encounter Details Date Type Department Care Team (Late st Contact Info) Description 04/08/2024 Scanned Document INTERFACE DEFAULT [address] [place] [address] System, Provider Not In Social History Tobacco [...] [address] [facility] [address] [place], [place] [phone] Ronald Mills MD [address] [place] [address] [address] [place] [address] documented as of this [...] End Date Caitlyn Bowie MD [address] [address] PCP - General Internal Medicine 05/06/21 documented as of this encounter
--- OUTSIDE RECORDS SUMMARY | 2025-03-28 11:53 | XMS_ITS | Clinical Summary ---
Author Organization [facility], Address [address] [place] [address] [place] [address] Phone Care Team Providers Care Cutter And Edge Trimmer Name Role Phone Caitlyn Bowie MD Primary Care Provider +1- [phone] Allergies Active Allergy Reactions Criticality Noted Date [...] Only [facility] [address] [place] [address] Marina Abdi 03/17/2025 Documentation Only [facility] [address] [place] [address] Marina Abdi 03/17/2025 Office Communication [facility] [address] [place] [address] Marina Abdi 03/17/2025 Orders Only [facility], [address] [place] [address] Marina Abdi Smells of urine [...] Visit [facility], [address] [place] [address] Rubén Ashraf MD [address] [place] [address] Health Maintenance Due Date Last Done Comments Influenza Vaccine (#1) 2025 0, 04/22/2019, 04/18/2016 Pneumococcal Vaccine: 50+ Years Completed 08/31/2021, 03/25/2016, 09/17/2015, Additional history exists Hepatitis B Vaccine Aged Out No longe r eligible based on patient's age to complete this topic Insurance Medicare [facility] Care Teams Cutter And Edge Trimmer Relationship Specialty Start Date End Date Caitlyn Bowie MD [address] [place], [place] PCP - General Internal Medicine 09/24/24
[2025-03-28 12:16] LABS: Hematocrit 35.3 % (37.0-47.0); Hemoglobin 11.9 g/dl (12.0-16.0); Imm Gran Abs Auto 0.13 X10*3/uL (0.00-0.03); Imm Gran Pct Auto 0.9 % (0.0-0.4); Lymphocytes Absolute Auto 0.6 X10*3/uL (1.2-4.9); Mean Corpuscular HGB Conc 33.7 g/dl (31.0-35.0); Mean Corpuscular Hemoglobin 33.7 pg (27.0-33.0); Mean Corpuscular Volume 100.0 fL (80.0-98.0); NRBC Abs Auto 0.000 X10*3/uL (0.0-0.012); NRBC Pct Auto 0.0 /100WBC (0.0-0.2); Platelet Count 230 X10*3/uL (160-400); Red Blood Count 3.53 X10*6/uL (4.20-5.50); White Blood Count 14.1 X10*3/uL (4.8-10.8)
[2025-03-28 12:57] LABS: Anion Gap 13 (12-20); Blood Urea Nitrogen 21 mg/dL (9-16); Calcium 10.3 mg/dL (8.4-10.2); Carbon Dioxide 31 mmol/L (22-29); Chloride 99 mmol/L (96-108); Estimated Glomerular Filt Rate > 60; Potassium 3.3 mmol/L (3.3-5.1); Sodium 140 mmol/L (135-145)
[2025-03-28 13:00] LABS: Troponin-I High Sensitivity 14.3 ng/L (<3.5-17.0)
[2025-04-03 13:53] LABS: SARS COV2 IgG Negative (Negative)
== END 2025-03-28 11:05 | disposition home or self-care (01) ==
LOC: HO.XRAY 11:04
PROVIDERS: PCP Hospitalist; Visit Provider Hospitalist
DX: J44.1 Chronic obstructive pulmonary disease with (acute) exacerbation (principal); J96.12 Chronic respiratory failure with hypercapnia; R91.8 Other nonspecific abnormal finding of lung field; J96.11 Chronic respiratory failure with hypoxia; J70.1 Chronic and other pulmonary manifestations due to radiation; I50.32 Chronic diastolic (congestive) heart failure; C34.12 Malignant neoplasm of upper lobe, left bronchus or lung; I27.23 Pulmonary hypertension due to lung diseases and hypoxia; I27.22 Pulmonary hypertension due to left heart disease; J90 Pleural effusion, not elsewhere classified; Z79.899 Other long term (current) drug therapy
CPT/HCPCS: 36415; 70220; 71046; 80048; 82785; 84484; 85025; 85652; 86769; 99212

== ENCOUNTER → 2025-03-28 11:56 | Outpatient (BNV) | payer MEDICARE, SELFPAY | PROVIDERS: PCP Hospitalist; Visit Provider Radiology Diagnostic Radiology | DX: J90 Pleural effusion, not elsewhere classified (principal); R09.89 Other specified symptoms and signs involving the circulatory and respiratory systems | CPT/HCPCS: 70220; 71046 ==

== ENCOUNTER 2025-03-28 13:34 | Outpatient (REF) | payer MEDICARE, SELFPAY ==
[2025-03-28 15:36] LABS: Resp Syncy Virus RNA Qual PCR NEGATIVE (Negative); SARS COV2 PCR INHOUSE NEGATIVE (Negative)
== END 2025-03-28 13:35 | disposition home or self-care (01) ==
LOC: HO.LNP 13:34
PROVIDERS: Visit Provider Hospitalist
DX: R07.81 Pleurodynia (principal); Z03.818 Encounter for observation for suspected exposure to other biological agents ruled out
CPT/HCPCS: 87637

== ENCOUNTER 2025-03-28 13:34 | Outpatient (AMB) | payer MEDICARE, SELFPAY ==
[2025-03-28 13:48] VITALS: BP 126/60; PULSE 77; O2SAT 99; BMI 23.6
--- NOTE | 2025-03-28 13:48 | A.OFFVIS_ITS ---
Vital Signs 03/28/25 13:48 Height 5 ft 2 in Weight 128 lb 15.527 oz BMI 23.6 BP 126/60 Blood Pressure Location Lt brachial Position Sitting Pulse 77 Pulse Source Pulse Oximeter Pulse Oximetry (%) 99 Oxygen Delivery Method Nasal Cannula Oxygen Flow Rate 2 Intake Visit Reasons: Per MR Accompanied by: Self / Same As Patient Allergies morphine Allergy (Severe, Verified 03/28/25 13:51) Itching avocado (AVOCADO) Allergy (Mild, Verified 03/28/25 13:51) ITCHY THROAT, RASH azithromycin (AZITHROMYCIN) Allergy (Mild, Verified 03/28/25 13:51) ITCHY THROAT, RASH barium iodide (BARIUM IODIDE) Allergy (Mild, Verified 03/28/25 13:51) ITCHY THROAT, RASH barium sulfate Allergy (Mild, Verified 03/28/25 13:51) Itch bee pollen (BEE STINGS) Allergy (Mild, Verified 03/28/25 13:51) ITCHY THROAT, RASH ciprofloxacin (From CIPRO) Allergy (Mild, Verified 03/28/25 13:51) ITCHY THROAT, RASH clarithromycin (From BIAXIN) Allergy (Mild, Verified 03/28/25 13:51) ITCHY THROAT, RASH diatrizoate meglumine (From GASTROGRAFIN) Allergy (Mild, Verified 03/28/25 13:51) ITCHY THROAT, RASH diatrizoate sodium (From GASTROGRAFIN) Allergy (Mild, Verified 03/28/25 13:51) ITCHY THROAT, RASH diclofenac (From VOLTAREN) Allergy (Mild, Verified 03/28/25 13:51) ITCHY THROAT, RASH erythromycin base (ERYTHROMYCIN BASE) Allergy (Mild, Verified 03/28/25 13:51) ITCHY THROAT, RASH gentamicin (GENTAMICIN) Allergy (Mild, Verified 03/28/25 13:51) ITCHY THROAT, RASH Iodinated Contrast Media (IVP DYE) Allergy (Mild, Verified 03/28/25 13:51) ITCHY THROAT, RASH levofloxacin (From LEVAQUIN) Allergy (Mild, Verified 03/28/25 13:51) ITCHY THROAT, RASH metronidazole (From FLAGYL) Allergy (Mild, Verified 03/28/25 13:51) ITCHY THROAT, RASH moxifloxacin (From AVELOX) Allergy (Mild, Verified 03/28/25 13:51) ITCHY THROAT, RASH Penicillins (PENICILLINS) Allergy (Mild, Verified 03/28/25 13:51) ITCHY THROAT, RASH shrimp (SHRIMP) Allergy (Mild, Verified 03/28/25 13:51) ITCHY THROAT, RASH Sulfa (Sulfonamide Antibiotics) (SULFA (SULFONAMIDE ANTIBIOTICS)) Allergy (Mild, Verified 03/28/25 13:51) ITCHY THROAT, RASH vancomycin (VANCOMYCIN) Allergy (Mild, Verified 03/28/25 13:51) ITCHY THROAT, RASH clindamycin Adverse Reaction (Intermediate, Verified 03/28/25 13:51) Unknown HPI Comments Details: The patient is a 79 y/o woman with a complicated history which includes: COPD, KANDY, pulmonary HTN, history pulmonary emboli on chronic anticoagulation, lung CA Stage IIIA s/o neoadjuvant chemoradiation and Left upper lobe lobectomy. She did have a CT scan today that I personally reviewed. Has not been personally read by the radiologist. Based on my reading she has some pulmonary nodules some that are new 4 mm in the right major fissure area. Other nodules are stable. Other post operative and pulmonary fibrotic changes stable. The patient should get a CT scan in 6 months. Also to note, she did not tolerate the Incruse nor budesonide. Will consider Daliresp. She was admitted to [facility] with diverticulitis. She was placed on IV antibiotics but she left against medical advice because she did not like the antibiotic options. In the meantime she was having some issues with coughing up some blood. She is also concerned because on her visit to [facility] she did have a CT scan of the chest and she was told that she had significant scarring of her lungs in addition to lung volume loss. I have not looked at the CT scan back in reassured her that she has had this radiation fibrosis for long time and volume loss due to the scarring was present before. We did review her perfusion scan demonstrating no defects to suggest any blood clots. Interestingly in the quantitative study the patient did have 81% of the blood flow going to her right lung and 18% going to the left. This is likely due to her previous surgery and also radiation changes. 03/21/2024 the patient is here for pulmonary follow-up visit. She has multiple complaints. She is entirely seems any physicians. She is still dealing with the wound getting plenty of wound care 4. Still getting debrided. In addition to that she has had a productive cough. The phlegm is now clear but thick difficult to expectorate. Sometimes feel like it is dripping for nasal passages down like a postnasal drip. The patient is currently on cefpodoxime. She is finishing a course. We did try to get sputum in the office but she was not able to do so. I did give her a cup in order for her to be doing her own time. We w ill be able to look for both Gram stain culture and also AFB. The patient also had a chest x-ray which I personally reviewed and also compared to her previous x-rays. It appears that she has worsening left-sided pleural effusion. Hard to know that is long as very affected on that side there is any active disease otherwise. She has not had a CT scan since October. In view of the worsening chest x-ray in the ongoing symptoms will go ahead and request a CT scan time. The patient also could try some Mucomyst. I will send some to the pharmacy to see if we can get it. She understands that is hard to get. When she gets she can use it twice a day for CPT to see if this helps clear the secretions that gets that within her airways. In addition to that the patient has been using the BiPAP. The BiPAP therapy has been affecting beneficial. She does use it for more than 4 hours a night. However, she does have a component of hypercarbia and she would do better with the noninvasive ventilator. Currently she is set up for sleep study at [facility] coming up. Hopefully they can do a split study and try titrate her figure out what her best form of therapy it is. At some point though if she continues on the BiPAP will need to replace it because his older than 5 years. 05/09/2024 the patient is here for a pulmonary follow-up visit. Overall she is doing well from a respiratory status. She recently did have a CT scan of the chest that at [facility]. I did personally reviewed. Appears to be stable. She does have the chronic effusion in the parenchymal disease. This is all stable. She does have a small compression fracture though. Has significant osteopenia. She did have blood work with her dairy grazer recently. Her antiphospholipid antibodies and anticardiolipin antibodies continue antiphospholipid antibody elevated. Her homocystine that was also elevated. She is going to start folic acid. She is concerned because her D-dimer was significantly elevated. Although she did have trauma to the legs. She had lower extremity Dopplers which were negative for any clots which is reassuring. Previous he Q scans have been reassuring. Will go ahead and repeat her blood test to see make sure that the D-dimer is coming down. If the D-dimer continues to be elevated then will do additional testing for potential occult clots. She continues on the Coumadin with a goal level 1.5-2. I do believe that she should stay on it based on the fact that she has significant symptoms and coming off the medicine may result in more security of the results specially since the Coumadin has been working for her chronic thromboembolic disease. From the wound standpoint the patient is doing better from the wound healing on her right lower extremity although she recently had another the trauma to the left. She is also dealing with a boil or a growth on the perineal area. She is going to be seeing statistical secretary for that. 08/08/2024 the patient is here for a pulmonary follow-up visit. Overall she is doing okay. She does have issues with her balance and also issues with dysuria. The patient has been also having issues with her oxygen that was at nighttime. She has been noticing worsening hypoxia. She has been using her BiPAP 16/10. She does use it with her oxygen. The patient did have a download recently and her AHI is up to 10 cm. She also had a blood gas demonstrating elevations in her CO2. Therefore, will go ahead and increase her BiPAP settings from 16-10 to 18/12. This BiPAP is about 6 years old now. The patient likely needs a replacement. Will go ahead and refer her to sleep in [place] in order for her to undergo a split study in order to get her a new PAP therapy. During the titration study component will be helpful to see if she is better off with AVAPS versus BiPAP. We did try her underlying AVAP but she could not tolerate it. She followed she did not have enough teaching. Therefore, will go ahead and increase the pressures of her BiPAP monitor her AHI and recheck a venous gas while we wait for her to see a certified sleep specialist in [place]. In the meantime she continues with her diuresis. Will go ahead and check a blood work. The patient also had a CT scan of the chest back in 03/29/2024 demonstrating no acute disease just a chronic changes. Will plan to talk about any additional imaging during her next visit. She will continue with current respiratory regimen for now. 09/11/2024 the patient is here for hospital follow-up visit. Apparently she was in the ER with worsening shortness of breath and cough. She was at [facility]. There she did have blood work. Her brain atretic peptide was significantly elevated at 100. She also did have a CT scan of the chest which I personally reviewed. She does have just chronic findings which include her radiation fibrosis decreased lung volume on the left along with the small pleural effusion on the left with the heart shifted Leftward as well volume loss. She was diagnosed with bronchitis and the patient was discharged. We did review further blood work and her sedimentation rate has been climbing slowly now at 51. in addition to that she does have a history of positive CLARA and now she is complaining of some pleuritic chest discomfort bringing up the question of underlying connective tissue disease resulting in some pleuritis. In addition to that she has been feeling episodes of increased heart rate and shortness of breath. I suspect that is likely a pulmonary vascular component. Her last echocardiogram demonstrating moderate degree of pulmonary hypertension. Unfortunately, she did not tolerate pulmonary vasodilators because if the significant amount of increase in the volume to the left ventricle then ultimately resulting in congestive heart failure. Therefore hold off on that. The patient is also anxious. She is not sleeping well. She feels that she is going to fall asleep and not wake up. She is willing to try small dose of Ambien. This will help her fall asleep and I explained to her that is not going to suppress her respiratory drive. We also did look at her blood gas that she had initially when she showed up and she had a severe case of respiratory alkalosis and she was able to breathe down her pCO2 down to 24 which is pretty significant. In addition to that she is willing to try small dose of Plaquenil to treat her for underlying pleuritis and pain and see if this can provide some relief as we repeat her blood work. She will be following up with Hematology. 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 I did print out the blood work so she can talk to her dairy grazer in the meantime will go ahead and repeat her blood work as well. She continues to be on high dose of diuretics. Volume status seems to be better at this time. She continues use the oxygen with good effect. Sometimes her oxygen drops because of her cardiopulmonary disease. She does not have much pulmonary reserve. In with the pulmonary hypertension along with diastolic dysfunction this quit quickly result in hypoxia. She can take breaks though when she is sitting as lungs are oxygens above 90%. 11/04/2024 the patient is here for a pulmonary follow-up visit. Since we last spoke she started developing abdominal pain. She did go to the ER where she was diagnosed with diverticulitis based on a CAT scan showing fat stranding close to the areas of diverticulosis in the left descending colon. The patient was not given any antibiotics because of all her allergies. She then followed up with the GI doctor called and it was recommended that she go back to the ER. She has not started any therapy for this. She has been feeling a little dehydrated from the lack of p.o. intake as she is doing significant amount of bowel rest. She has tolerated cephalosporins in the past. I will go ahead and send her Vantin to the pharmacy that she can use. She has also tolerated ceftriaxone in the hospital that has also been helpful for her. She does not tolerate clindamycin anymore and unfortunately she does not call tolerate the Flagyl either so we can not provide her with any anaerobic coverage. Still though Vantin has a broad spectrum coverage and should help. If her symptoms worsen though she should definitely go to the ER specially she is getting dehydrated or for abdominal comfort is worse or if she started developing fevers or chills or any other concerning symptoms. As far as her sleep apnea the patient did undergo a sleep study. This was done in [place]. It was recommended that based on her sleep apnea noted on his study that she start CPAP therapy. I did not see that they checked the end-tidal CO2 but at this point I think is reasonable for her t o start CPAP on 2 L of oxygen and if she does not tolerate that if she fails CPAP we can quickly switch over to BiPAP anyway. Will go ahead and request a replacement APAP through [employer], [employer]. And therefore she can get her supplies as well. If she has a machine prior to her next appointment she can always bring it in so we can review with her. From a respiratory status she is okay she is using her oxygen with good effect. The patient continues on the Lasix as well she is taking 160 mg daily total. Because of her significant weight loss decreased p.o. intake I did have her only take half the dose for couple days in order for her to read a Barkley very and then go back to the full dose when she is able to take by mouth. 11/21/2024 the patient is here for pulmonary follow-up visit. The patient overall has been feeling better from the diverticulitis. She did complete the Vantin. She still has some on hold in case her symptoms worsened again. She will be following up with Dr. Fang soon. In the meantime respiratory status is stable. She does have bowel some dyspnea and hypoxia. She is already on high dose of diuretics. She is going to be following up a heart failure specialist. I do believe that is J[facility]iance may be a potential option for her. In the meantime she continues use her respiratory therapy with good effect. She continues use her oxygen did effect. She also continues use the BiPAP every night. BiPAP therapy has been affecting beneficial. She does use it for more than 4 hours a night. She is complaining of a dry mouth. I did increase the hu midity a little bit. She can always increase in more from home. In the meantime her BiPAP is very old. Will request a replacement BiPAP at this time with a local [employer] [facility], [facility]. Otherwise patient follow-up in 2-3 months. If she has any issues prior to this she will call for an earlier assessment. 12/26/2024 the patient is here for sick visit. The patient had a an event at home where she was exposed to a smoke due to vinegar and also baking soda as she was trying to clean a pot. She did develop some difficulty breathing and a significant cough. She did call the office and we had increased her prednisone to 20 mg. Seems that she is getting better although she has a still barky cough. Still feels like she has a very sore trachea. Likely from respiratory dysfunction syndrome from the initial exposure to the fumes and smoke. She is having hard time sleeping having some chest discomfort. Will try some cough medication with codeine to try to alleviate her symptoms. She is going to wean down to the baseline prednisone of 5 mg. In the meantime she continues have daytime drowsiness. She has been using just oxygen though. She has had 2 sleep studies demonstrating no evidence of any significant sleep apnea. Therefore, will hold off on CPAP therapy at this time. Will go ahead and check a blood gas to see if her CO2 is elevated. If her CO2 is elevated then we have to consider treatment for chronic hypercarbic respiratory failure. The patient also has been complaining of dyspnea on exertion. Moderate severity. Will go ahead and start her on PFTs and pulmonary rehabilitation. 01/02/2025 the patient is here for a pulmonary follow-up visit. The patient has been using the BiPAP. The BiPAP therapy appears to be affecting beneficial by though she is swallowing a lot of air and getting some bloating. I did decrease the pressures were 18/12 to 16/8. She also had a blood gas demonstrating a pCO2 of 59 mmHg. The patient therefore benefits from the BiPAP. The machine now is older and needs to be replaced. We will go ahead and request an overnight oximetry to see if we can have her qualify for BiPAP again with [facility]. Otherwise we may have to stay with [facility] about getting a replacement BiPAP through them. The patient did have pulmonary function studies and I did personally reviewed him. Appears to have interval worsening overall with now moderate o bstruction consistent with moderate COPD and also moderate restrictive ventilatory defect which is also worse. In addition to the severe diffusion impairment likely secondary to the above findings and her underlying pulmonary vascular disease. This all explained the need for unconfirmed Ingrid for the oxygen supplementation. She continues to use a nebulizer. Her machine is no longer working correctly therefore we will request a replacement. And I do feel strongly about her performing pulmonary rehabilitation. In the meantime she did have a twisting of her ankle and she is having some right ankle pain and bruising so therefore will have her get an x-ray of that before she starts rehab. 02/18/2025 the patient is here for a pulmonary follow-up visit. She is still struggling with her respiratory symptoms. Sometimes developing chest tightness and not sure if his cardiac or pulmonary. The last time she was in the hospital was back in early February. She had an x-ray which was without any acute issues just a chronic left-sided pleural effusion. Her blood work was okay except for slightly elevated troponins which have been elevated since October. The patient has been on the diuretics. She seems to be tolerating them well in her volume status is overall better. Recently though she was having issues with her left eye having some eye pain and blurriness and she went to see the gis engineer and she was diagnosed with optic neuritis. She does have a history of connective tissue conditions and question of multiple sclerosis when she was very young. Therefore, is not clear at this point but she did have increased dose of prednisone given. And she is going to taper it down. I did encourage her to make sure she follows up with ophthalmology to make sure that the neuriti s subsides. In the meantime the patient is been using the BiPAP. Unfortunately though we did an overnight oximetry which still showing significant hypoxia and she will need to have increased oxygen needs with the BiPAP and also she had a blood gas demonstrating an elevated pCO2 of 61 mmHg suggesting that she is failing BiPAP. The patient needs to go on a noninvasive ventilator. She does not have obstructive sleep apnea. The patient does have chronic hypoxic and hypercarbic respiratory failure due to her COPD. And at this point she carries a poor prognosis and high risk so hospitalizations. Therefore, she needs to be on a noninvasive ventilator to improve her gas exchange decrease her hospitalizations and improve her prognosis. 03/28/2025 the patient is here for sick visit. She has been developing worsening cough chest tightness pleuritic chest pain primarily on the left side. Moderate severity. She also complains of a sore throat. The cough itself is been croupy in nature. Difficult to expectorate. The patient did call we start her on doxycycline in addition to increase her prednisone baseline. She did have a chest x-ray in addition to a sinus x-ray. Sinuses were clear and the chest x- ray demonstrates a persistent left-sided pleural effusion which appears to be just a slight increased. The patient also had blood work. She does have an elevated white count with a decreasing the lymphocyte count suggesting the possibility of a viral syndrome. We did test her for flu RSV and COVID in the there were all negative. The patient does have some wheezing on the left lung which is asymmetrical. Likely has a component of tracheobronchitis with a croupy cough. The patient will continue on the doxycycline. In the meantime will go ahead and increase the prednisone to 20 mg and slowly taper it down. The patient also will provide cough syrup. Will plan to do a CAT scan once she is better to follow-up with her nodular densities and history of cancer in the abnormal chest x-ray. FOR[facility], LAT[facility] Medical History Chest pain Chest pain Ankle pain Chronic hypercapnic respiratory failure KANDY treated with BiPAP COPD (chronic obstructive pulmonary disease) Open wound Warfarin anticoagulation Complex sleep apnea syndrome Leg pain Anemia Tachycardia DVT (deep venous thrombosis) Compression fracture of body of thoracic vertebra ASD (atrial septal defect) Pleuritic chest pain History of COVID-19 Chronic anticoagulation Hypothyroidism GERD (gastroesophageal reflux disease) Hyperlipidemia Hypertension Factor 5 Leiden mutation, heterozygous History of non-ST elevation myocardial infarction (NSTEMI) Hypoxia Anxiety PTSD (post-traumatic stress disorder) Hemoptysis Dyspnea Tracheobronchitis CLARA positive Diverticulitis Allergic bronchitis (HFpEF) heart failure with preserved ejection fraction Subarachnoid bleed Insomnia Anti-phospholipid antibody syndrome Hypogammaglobulinemia Chronic respiratory failure Arterial insufficiency of lower extremity Complex regional pain syndrome i of right lower limb Post herpetic neuralgia Pulmonary hypertension Pericardial effusion Pulmonary emboli Pleural effusion Radiation fibrosis of lung Pneumonitis Pulmonary nodules Lung cancer Surgical History History of colonoscopy History of lung surgery History of tonsillectomy History of hysterectomy S/P mitral valve clip implantation History of cardiac cath Family History Sister No problems noted. Mother Cardiovascular disease Daughter Tachycardia Other KANDY (obstructive sleep apnea) Social History Household Members: Other Housing: Custodial Do you presently have visiting nurse or other home services: Yes (at home had DENTURE FINISHER that came to visit her) Unable to assess alcohol history related to: Unknown Alcohol intake: never Comment: stand by assist with ambulation Patient Tobacco Use Status: Never used Tobacco Second Hand Smoke Exposure: No Advance Directives Date on File: 06/15/22 service: No Current occupational status: retired Review of Systems Const Denies chills, Denies fatigue, Denies fever(s), Denies weight gain and Denies weight loss Eyes Denies change in vision ENT Denies dizziness Card Reports chest pain, Reports leg edema, Denies lightheadedness, Denies palpitations, Reports dyspnea on exertion, Denies orthopnea and Denies other Resp Reports cough, Reports pain on inspiration, Reports pain with cough, Reports dyspnea on exertion and Reports wheezing GI Denies hematochezia and Denies change in stool character Musc Denies abnormal gait, Denies muscle weakness, Denies numbness, Denies radiating pain into limb and Denies tingling Skin/Breast Reports change in pigmentation, Reports skin swelling and Reports unusual bruising Neuro Denies abnormal gait, Denies dizziness, Denies numbness and Denies tingling Psych Reports depression Endo Denies fatigue and Denies palpitations Aller/Immun Reports wheezing Physical Exam Vital Signs: Last Vital Signs Pulse 77 03/28/25 13:48 BP 126/60 03/28/25 13:48 Pulse Ox 99 03/28/25 13:48 Oxygen Delivery Method Nasal Cannula 03/28/25 13:48 Oxygen Flow Rate 2 03/28/25 13:48 BMI result Body Mass Index 23.6 Last Vital Signs Temp 97.7 F 06/20/22 08:00 Pulse 90 06/20/22 08:00 Resp 16 06/20/22 08:00 BP 137/60 06/20/22 08:00 Pulse Ox 93 06/20/22 08:00 O2 Del Method 06/20/22 08:00 O2 Flow Rate 2 06/20/22 08:00 FiO2 45 06/14/22 11:07 BMI result Body Mass Index 23.0 Const General: cooperative, comfortable, alert and awake Orientation/consciousness: patient oriented x3 HEENT Head: Yes atraumatic Eyes General: appearance normal, both eyes and all related structures Neck Neck: Yes trachea midline, Yes supple and Yes no JVD Chest Chest palpation & inspection: tenderness rib (right side) Resp Effort & Inspection: normal respiratory effort, Actively coughing and No prolonged expiratory phase Auscultation: no rales, no rhonchi, wheezes and diminished lung sounds Cardio Rate: regular rate Rhythm: regular rhythm Heart sounds: S1 normal heart sound present and S2 normal heart sound present GI Palpation (GI): Soft to palpation and Tenderness to palpation present (GI) in the LLQ Auscultation: normal bowel sounds Skin General skin exam: purpura and scars Neuro General: patient oriented x3 and no focal motor deficits Extrem Right lower extremity: edema Assessment & Plan Assessment & Plan (1) COPD (chronic obstructive pulmonary disease): Code(s): J44.9 - Chronic obstructive pulmonary disease, unspecified Category: Medical Qualifiers: COPD type: COPD with acute exacerbation Qualified Code(s): J44.1 - Chronic obstructive pulmonary disease with (acute) exacerbation (2) Cough: Code(s): R05.9 - Cough, unspecified Category: Medical Qualifiers: Cough type: subacute Qualified Code(s): R05.2 - Subacute cough (3) Chronic hypercapnic respiratory failure: Code(s): J96.12 - Chronic respiratory failure with hypercapnia Category: Medical (4) Pulmonary hypertension: Comment: severe based on RHC, moderate based on recent echo Code(s): I27.20 - Pulmonary hypertension, unspecified Category: Medical (5) Pulmonary nodules: Code(s): R91.8 - Other nonspecific abnormal finding of lung field Category: Medical (6) Chronic respiratory failure: Code(s): J96.10 - Chronic respiratory failure, unspecified whether with hypoxia or hypercapnia Category: Medical Qualifiers: Respiratory failure complication: hypoxia and hypercapnia Qualified Code(s): J96.11 - Chronic respiratory failure with hypoxia; J96.12 - Chronic respiratory failure with hypercapnia (7) Radiation fibrosis of lung: Code(s): J70.1 - Chronic and other pulmonary manifestations due to radiation Category: Medical (8) (HFpEF) heart failure with preserved ejection fraction: Code(s): I50.30 - Unspecified diastolic (congestive) heart failure Category: Medical Qualifiers: Heart failure chronicity: chronic Qualified Code(s): I50.32 - Chronic diastolic (congestive) heart failure (9) Lung cancer: Code(s): C34.90 - Malignant neoplasm of unspecified part of unspecified bronchus or lung Category: Medical Qualifiers: Laterality: left Lung location: upper lobe of lung Qualified Code(s): C34.12 - Malignant neoplasm of upper lobe, left bronchus or lung (10) Pleural effusion: Code(s): J90 - Pleural effusion, not elsewhere classified Category: Medical Plan complete prednisone 20mg with taper, then, prednisone 2.5mg QOD continue Doxycycline cough medicine Ambien for sleep continue Advair ASHA as needed continue ASHA (xopenex) as needed CPT with acapella valve fluticasone Oxygen 2L/pulse with activity and sleep. POC Inogen G5 duiresis as tolerated stop BIPAP decreased pressures 16/8, failed BIPAP, require non invasive ventilator. Has Chronic hypercarbic respiratory failure due to COPD and carries apoor prognosis and high hospitalization risk. A non invasive ventilator will provide better gas exchange, improve prognosis and decreased hospitalizations. THe patient will use the NIV more than [address] chest declined Ohtuvayre stopped Pulmonary rehab F/U 3-6 weeks Orders: Orders CT chest wo IV con Today C34.12 - Malignant neoplasm of upper lobe, left bronchus or lung, R91.8 - Other nonspecific abnormal finding of lung field SARS-CoV2/FLU/RSV 03/28/25 R05.9 - Cough, unspecified Medications: New prednisone orally daily; 4 tabs daily x 5 days, then 3 tabs daily x 5 days, then 2 tabs daily x 5 days, then 1 tab daily x 5 days 50 tabs 0RF 20 days codeine-guaifenesin 10-100 mg/5 mL 10 mL PO Q6H PRN 300 mL 0RF cough 10 days Coding Level of Care Code Est Pt Level 5 (67639) Complex EM visit Add On G2211 Diagnoses Chronic obstructive pulmonary disease with acute exacerbation J44.1 COPD type: COPD with acute exacerbation Subacute cough R05.2 Cough type: subacute Chronic hypercapnic respiratory failure J96.12 Pulmonary hypertension I27.20 Pulmonary nodules R91.8 Chronic respiratory failure with hypoxia and hypercapnia J96.11; J96.12 Respiratory failure complication: hypoxia and hypercapnia Radiation fibrosis of lung J70.1 Chronic heart failure with preserved ejection fraction I50.32 Heart failure chronicity: chronic Malignant neoplasm of upper lobe of left lung C34.12 Laterality: left Lung location: upper lobe of lung Pleural effusion J90 Time Spent (min) 55
== END 2025-03-28 14:26 | disposition home or self-care (01) ==
LOC: HO.HPS 13:35
PROVIDERS: PCP Internal Medicine; Visit Provider Hospitalist
DX: J44.1 Chronic obstructive pulmonary disease with (acute) exacerbation (principal); R05.2 Subacute cough; J96.12 Chronic respiratory failure with hypercapnia; I27.20 Pulmonary hypertension, unspecified; R91.8 Other nonspecific abnormal finding of lung field; J96.11 Chronic respiratory failure with hypoxia; J70.1 Chronic and other pulmonary manifestations due to radiation; I50.32 Chronic diastolic (congestive) heart failure; C34.12 Malignant neoplasm of upper lobe, left bronchus or lung; J90 Pleural effusion, not elsewhere classified
CPT/HCPCS: 99215; G2211

== ENCOUNTER 2025-04-09 09:52 | Outpatient (REF) | payer MEDICARE, SELFPAY ==
--- NOTE | 2025-04-09 11:02 | PC.RT ---
Out patient ABG test attempted x2 by RT was unsuccessful. Pt was notified that a second RT can be called to attempt test. Pt refused further attempts. MD Kelly notified.
--- OUTSIDE RECORDS SUMMARY | 2025-04-09 11:52 | XMS_ITS | Encounter Summary ---
Author Organization [facility] and [facility] Address [address] [place] [address] Care Team Providers Care Wellness Manager Name Role Phone Caitlyn Bowie MD Primary Care Provider +1- [phone] Encounter Details Date Type Department Care Team (Late st Contact Info) Description 04/16/2018 Scanned Document [facility] Health Information Management [address] [place] [address] External, Provider Social History Tobacco Use Types [...] [facility] [address] [facility] [address] [place], [place] [id number] Ronald Mills MD 240 [facility] [address] [place] [address] documented as of this encounter Visit Diagnoses Not on filedocumented in this encounter Additional Health Concerns Infection Onset Date Last Indicated Resolved Time COVID-19 03/05/2022 03/05/2022 03/15/2022 7:18 PM EDT documented as of this encounter Care Teams Wellness Manager Relationship Specialty Start Date End Date Caitlyn Bowie MD 3400 [facility] 1 [place] [address] PCP - General Internal Medicine 05/06/21 Henry Kelly MD Pulmonary Department 175 [facility], [address] [place] [address] Physician Pulmonary Disease 09/06/17 06/22/20 documented as of this encounter
--- OUTSIDE RECORDS SUMMARY | 2025-04-09 11:52 | XMS_ITS | Encounter Summary ---
Author Organization [facility] and [facility] Address [address] [place] [address] Care Team Providers Care Professor Of Industrial Technology Name Role Phone Caitlyn Bowie MD Primary Care Provider +1- [phone] Encounter Details Date Type Department Care Team (Late st Contact Info) Description 04/18/2018 Scanned Document [facility] Health Information Management [address] [place] [address] External, Provider Social History Tobacco Use Types [...] at [facility] [address] [facility] [address] [place], [place] [phone] Ronald Mills MD 240 [facility] [address] [place] [address] documented as of this encounter [...] of this encounter Care Teams Professor Of Industrial Technology Relationship Specialty Start Date End Date Caitlyn Bowie MD 3400 [facility] 1 [place] [address] PCP - General Internal Medicine 05/06/21 Henry Kelly MD Pulmonary Department 175 [facility], [address] [place] [address] Physician Pulmonary Disease 09/06/17 06/22/20 documented as of this encounter
--- OUTSIDE RECORDS SUMMARY | 2025-04-09 11:53 | XMS_ITS | Encounter Summary ---
Author Organization [facility] Address [address] [place] [address] Care Team Providers Care Human Insights Lead Ads Marketing Name Role Phone Caitlyn Bowie MD Primary Care Provider +1- [phone] Encounter Details Date Type Department Care Team (Late st Contact Info) Description 06/07/2021 Scanned Document [facility]-Oncology Program at [address] [place] [address] Norma Renee MD [address] [place] [address] [address] [place] [address] Social History Tobacco Use Types [...] PM EDT [facility] at [address] [place], [place] [phone] Ronald Mills MD 240 [facility] [address] [place] [address] documented as of this encounter Visit Diagnoses Not on filedocumented in this encounter Additional Health Concerns Infection Onset Date Last Indicated Resolved Time COVID-19 03/05/2022 03/05/2022 03/15/2022 7:18 PM EDT Assessment Noted Time PHQ-9 Depression Total Score: 2 11/07/19 19 2:06 PM EDT documented as of this encounter Care Teams Human Insights Lead Ads Marketing Relationship Specialty Start Date End Date Caitlyn Bowie MD [address] [address] PCP - General Internal Medicine 05/06/21 documented as of this encounter
--- OUTSIDE RECORDS SUMMARY | 2025-04-09 11:53 | XMS_ITS | Encounter Summary ---
Author Organization [facility] and [facility] Address [address] [place] [address] Care Team Providers Care Communications Senior Associate Name Role Phone Caitlyn Bowie MD Primary Care Provider +1- [phone] Encounter Details Date Type Department Care Team (Late st Contact Info) Description 09/15/2020 Scanned Document INTERFACE DEFAULT [address] [place] [address] System, Provider Not In Social History Tobacco [...] [facility] 240 [facility] Building [address] [place] [address] Ronald Mills MD [address] [place] [address] [address] [place] [address] documented as of this encounter Visit Diagnoses Not on filedocumented in this encounter Additional Health Concerns Infection Onset Date Last Indicated Resolved Time COVID-19 03/05/2022 03/05/2022 03/15/2022 7:18 PM EDT Assessment Noted Time PHQ-9 Depression Total Score: 2 11/07/19 19 2:06 PM EDT documented as of this encounter Care Teams Communications Senior Associate Relationship Specialty Start Date End Date Caitlyn Bowie MD [address] [address] PCP - General Internal Medicine 05/06/21 documented as of this encounter
--- OUTSIDE RECORDS SUMMARY | 2025-04-09 11:53 | XMS_ITS | Encounter Summary ---
Author Organization [facility] Address [address] [place] [address] Care Team Providers Care Combination Presser Name Role Phone Caitlyn Bowie MD Primary Care Provider +1- [phone] Encounter Details Date Type Department Care Team (Late st Contact Info) Description 06/08/2021 Scanned Document INTERFACE DEFAULT [address] [place] [address] System, Provider Not In Social History Tobacco [...] [facility] [address] [facility] [address] [place], [place] [phone] Ronald Mills MD [address] [place] [address] [address] [place] [address] documented as of this encounter [...] as of this encounter Care Teams Combination Presser Relationship Specialty Start Date End Date Caitlyn Bowie MD [address] [place] [address] PCP - General Internal Medicine 05/06/21 documented as of this encounter
--- OUTSIDE RECORDS SUMMARY | 2025-04-09 11:53 | XMS_ITS | Encounter Summary ---
Author Organization [facility] and [facility] Address [address] [place] [address] Care Team Providers Care Chip Applying Machine Tender Name Role Phone Caitlyn Bowie MD Primary Care Provider +1- [phone] Encounter Details Date Type Department Care Team (Late st Contact Info) Description 11/18/2021 Scanned Document INTERFACE DEFAULT [address] [place] [address] System, Provider Not In Social History Tobacco [...] [facility] [address] [facility] Building [address] [place] [address] Ronald Mills MD [address] [place] [address] [address] [place] [address] documented as of this encounter Visit Diagnoses Not on filedocumented in this encounter Additional Health Concerns Infection Onset Date Last Indicated Resolved Time COVID-19 03/05/2022 03/05/2022 03/15/2022 7:18 PM EDT Assessment Noted Time PHQ-9 Depression Total Score: 2 11/07/19 19 2:06 PM EDT documented as of this encounter Care Teams Chip Applying Machine Tender Relationship Specialty Start Date End Date Caitlyn Bowie MD [address] [phone] PCP - General Internal Medicine 05/06/21 documented as of this encounter
--- OUTSIDE RECORDS SUMMARY | 2025-04-09 11:53 | XMS_ITS | Encounter Summary ---
Author Organization [facility] and [facility] Address [address] [place] [address] Care Team Providers Care Clock And Watch Hands Dipper Name Role Phone Caitlyn Bowie MD Primary Care Provider +1- [phone] Encounter Details Date Type Department Care Team (Late st Contact Info) Description 09/07/2020 Scanned Document Cardiovascular Medicine at [address] [place], [place] [address] Norma Renee MD [address] [place] [phone] Social History Tobacco Use Types Packs/Day Years [...] PM EDT Tele[facility]icine Cancer [facility] at [address] [place], [place] [address] Ronald Mills MD [address] [place] [address] [address] [place] [address] documented as of this encounter Visit Diagnoses Not on filedocumented in this encounter Additional Health Concerns Infection Onset Date Last Indicated Resolved Time COVID-19 03/05/2022 03/05/2022 03/15/2022 7:18 PM EDT Assessment Noted Time PHQ-9 Depression Total Score: 2 11/07/19 19 2:06 PM EDT documented as of this encounter Care Teams Clock And Watch Hands Dipper Relationship Specialty Start Date End Date Caitlyn Bowie MD [address] [address] PCP - General Internal Medicine 05/06/21 documented as of this encounter
--- OUTSIDE RECORDS SUMMARY | 2025-04-09 11:53 | XMS_ITS | Encounter Summary ---
Author Organization [facility] Address [address] [place] [place] [address] Care Team Providers Care Process Area Supervisor Name Role Phone Caitlyn Bowie MD Primary Care Provider +1- [phone] Encounter Details Date Type Department Care Team (Late st Contact Info) Description 12/28/2021 Scanned Document INTERFACE DEFAULT [address] [place] [address] System, Provider Not In Social History Tobacco [...] [facility] 240 [facility] Building [address] [place] [address] Ronald Mills MD [address] [place] [address] [address] [place] [address] documented as of this encounter Visit Diagnoses Not on filedocumented in this encounter Additional Health Concerns Infection Onset Date Last Indicated Resolved Time COVID-19 03/05/2022 03/05/2022 03/15/2022 7:18 PM EDT Assessment Noted Time PHQ-9 Depression Total Score: 2 11/07/19 19 2:06 PM EDT documented as of this encounter Care Teams Process Area Supervisor Relationship Specialty Start Date End Date Caitlyn Bowie MD [address] [phone] PCP - General Internal Medicine 05/06/21 documented as of this encounter
--- OUTSIDE RECORDS SUMMARY | 2025-04-09 11:53 | XMS_ITS | Encounter Summary ---
Author Organization [facility] and [facility] Address [address] [place] [address] Care Team Providers Care Hog Driver Name Role Phone Caitlyn Bowie MD Primary Care Provider +1- [phone] Encounter Details Date Type Department Care Team (Late st Contact Info) Description 04/03/2018 Scanned Document [facility] [address] [place] [address] Provider, historical . Social History Tobacco Use [...] at [facility] 240 [facility] Building [address] [place], [place] [phone] Ronald Mills MD [address] [place] [address] [address] [place] [address] documented as of this encounter [...] as of this encounter Care Teams Hog Driver Relationship Specialty Start Date End Date Caitlyn Bowie MD 3400 [facility] 1 [place] [address] PCP - General Internal Medicine 05/06/21 Henry Kelly MD Pulmonary Department 175 [facility], [address] [place] [address] Physician Pulmonary Disease 09/06/17 06/22/20 documented as of this encounter
--- OUTSIDE RECORDS SUMMARY | 2025-04-09 11:53 | XMS_ITS | Encounter Summary ---
Author Organization [facility] Address [address] [place] [address] Care Team Providers Care Motor Analyst Name Role Phone Caitlyn Bowie MD Primary Care Provider +1- [phone] Encounter Details Date Type Department Care Team (Late st Contact Info) Description 10/08/2021 Scanned Document INTERFACE DEFAULT [address] [place] [address] System, Provider Not In Social History Tobacco [...] [facility] Building [address] [place], [place] [address] Ronald Mills MD [address] [place] [address] [address] [place] [address] documented as of this encounter [...] as of this encounter Care Teams Motor Analyst Relationship Specialty Start Date End Date Caitlyn Bowie MD [address] [address] PCP - General Internal Medicine 05/06/21 documented as of this encounter
--- OUTSIDE RECORDS SUMMARY | 2025-04-09 11:53 | XMS_ITS | Encounter Summary ---
Author Organization [facility] Address [address] [place] [address] Care Team Providers Care Animal Technician Name Role Phone Caitlyn Bowie MD Primary Care Provider +1- [phone] Encounter Details Date Type Department Care Team (Late st Contact Info) Description 12/16/2016 Scanned Document [facility] Health Information Management [address] [place] [address] External, Provider Social History Tobacco Use Types [...] [facility] 240 [facility] Building [address] [place], [place] [phone] Ronald Mills MD 240 [facility] A1 [place] [address] documented as of this encounter Visit Diagnoses Not on filedocumented in this encounter Additional Health Concerns Infection Onset Date Last Indicated Resolved Time COVID-19 03/05/2022 03/05/2022 03/15/2022 7:18 PM EDT documented as of this encounter Care Teams Animal Technician Relationship Specialty Start Date End Date Caitlyn Bowie MD 3400 [facility] 1 [place] [address] PCP - General Internal Medicine 05/06/21 Henry Kelly MD Pulmonary Department 175 [facility], [address] [place] [address] Physician Pulmonary Disease 09/06/17 06/22/20 documented as of this encounter
--- OUTSIDE RECORDS SUMMARY | 2025-04-09 11:53 | XMS_ITS | Encounter Summary ---
Author Organization [facility] and [facility] Address [address] [place] [address] Care Team Providers Care Energy Management Specialist Name Role Phone Caitlyn Bowie MD Primary Care Provider +1- [phone] Encounter Details Date Type Department Care Team (Late st Contact Info) Description 12/16/2016 Scanned Document [facility] Health Information Management [address] [place] [address] External, Provider Social History Tobacco Use Types [...] [facility] Building [address] [place], [place] [phone] Ronald Mills MD 240 [facility] Max [address] [place] [address] documented as of this [...] as of this encounter Care Teams Energy Management Specialist Relationship Specialty Start Date End Date Caitlyn Bowie MD 3400 [facility] 1 [place] [address] PCP - General Internal Medicine 05/06/21 Henry Kelly MD Pulmonary Department 175 [facility], [address] [place] [address] Physician Pulmonary Disease 09/06/17 06/22/20 documented as of this encounter
--- OUTSIDE RECORDS SUMMARY | 2025-04-09 11:53 | XMS_ITS | Encounter Summary ---
Author Organization [facility] and [facility] Address [address] [place] [address] Care Team Providers Care Accounts Payable Coordinator Name Role Phone Caitlyn Bowie MD Primary Care Provider +1- [phone] Encounter Details Date Type Department Care Team (Late Contact Info) Description 11/18/2021 Scanned Document [facility] Health Information Management [address] [place] [address] External, Provider Social History Tobacco Use Types [...] 240 [facility] Building [address] [place], [place] [address] Ronald Mills MD [address] [place] [address] [address] [place] [address] documented as of this encounter Visit Diagnoses Not on filedocumented in this encounter Additional Health Concerns Infection Onset Date Last Indicated Resolved Time COVID-19 03/05/2022 03/05/2022 03/15/2022 7:18 PM EDT Assessment Noted Time PHQ-9 Depression Total Score: 2 11/07/19 19 2:06 PM EDT documented as of this encounter Care Teams Accounts Payable Coordinator Relationship Specialty Start Date End Date Caitlyn Bowie MD [address] [address] PCP - General Internal Medicine 05/06/21 documented as of this encounter
--- OUTSIDE RECORDS SUMMARY | 2025-04-09 11:53 | XMS_ITS | Encounter Summary ---
Author Organization [facility] Address [address] [place] [address] Care Team Providers Care Greeting Card Editor Name Role Phone Caitlyn Bowie MD Primary Care Provider +1- [phone] Encounter Details Date Type Department Care Team (Late st Contact Info) Description 09/15/2020 Scanned Document Cancer Center at [address] [address] External, Provider Social History Tobacco Use Types [...] [facility] Center at [facility] 240 [facility] Building [address] [place], [place] [phone] Ronald Mills MD [address] [place] [address] [address] [place] [address] documented as of this encounter [...] documented as of this encounter Care Teams Greeting Card Editor Relationship Specialty Start Date End Date Caitlyn Bowie MD [address] [address] PCP - General Internal Medicine 05/06/21 documented as of this encounter
--- OUTSIDE RECORDS SUMMARY | 2025-04-09 11:53 | XMS_ITS | Encounter Summary ---
Author Organization [facility] and [facility] Address [address] [place] [address] Care Team Providers Care Ultrasound Sonographer Name Role Phone Caitlyn Bowie MD Primary Care Provider +1- [phone] Encounter Details Date Type Department Care Team (Late st Contact Info) Description 06/26/2018 Scanned Document [facility] Health Information Management [address] [place] [address] External, Provider Social History Tobacco Use Types [...] [facility] at [facility] 240 [facility] [address] [place], [place] [phone] Ronald Mills MD 240 [facility] A1 [place] [address] documented as of this encounter Visit Diagnoses Not on filedocumented in this encounter Additional Health Concerns Infection Onset Date Last Indicated Resolved Time COVID-19 03/05/2022 03/05/2022 03/15/2022 7:18 PM EDT documented as of this encounter Care Teams Ultrasound Sonographer Relationship Specialty Start Date End Date Caitlyn Bowie MD 3400 [facility] 1 [place] [address] PCP - General Internal Medicine 05/06/21 Henry Kelly MD Pulmonary Department 175 [facility], [address] [place] [address] Physician Pulmonary Disease 09/06/17 06/22/20 documented as of this encounter
--- OUTSIDE RECORDS SUMMARY | 2025-04-09 11:53 | XMS_ITS | Encounter Summary ---
Author Organization [facility] and [facility] Address [address] [place] [address] Care Team Providers Care Impregnator And Drier Name Role Phone Caitlyn Bowie MD Primary Care Provider +1- [phone] Encounter Details Date Type Department Care Team (Late st Contact Info) Description 12/16/2016 Scanned Document [facility] Health Information Management [address] [place] [address] External, Provider Social History Tobacco Use Types [...] [facility] 240 [facility] Building [address] [place], [place] [phone] Ronald Mills MD 240 [facility] Max [address]1 [place] [address] documented as of this encounter [...] as of this encounter Care Teams Impregnator And Drier Relationship Specialty Start Date End Date Caitlyn Bowie MD 3400 [facility] 1 [place] [address] PCP - General Internal Medicine 05/06/21 Henry Kelly MD Pulmonary Department 175 [facility], [address] [place] [address] Physician Pulmonary Disease 09/06/17 06/22/20 documented as of this encounter
--- OUTSIDE RECORDS SUMMARY | 2025-04-09 11:53 | XMS_ITS | Encounter Summary ---
Author Organization [facility] and [facility] Address [address] [place] [address] Care Team Providers Care Jewel Corner Brushing Machine Operator Name Role Phone Caitlyn Bowie MD Primary Care Provider +1- [phone] Encounter Details Date Type Department Care Team (Late st Contact Info) Description 02/02/2017 Scanned Document [facility] Health Information Management [address] [place] [address] External, Provider Social History Tobacco Use Types [...] at [facility] 240 [facility] Building [address] [place], [place] [phone] Ronald Mills MD 240 [facility] [address] [place] [address] documented as of this encounter Visit Diagnoses Not on filedocumented in this encounter Additional Health Concerns Infection Onset Date Last Indicated Resolved Time COVID-19 03/05/2022 03/05/2022 03/15/2022 7:18 PM EDT documented as of this encounter Care Teams Jewel Corner Brushing Machine Operator Relationship Specialty Start Date End Date Caitlyn Bowie MD 3400 [facility] 1 [place] [address] PCP - General Internal Medicine 05/06/21 Henry Kelly MD Pulmonary Department 175 [facility], [address] [place] [address] Physician Pulmonary Disease 09/06/17 06/22/20 documented as of this encounter
--- OUTSIDE RECORDS SUMMARY | 2025-04-09 11:53 | XMS_ITS | Encounter Summary ---
Author Organization [facility] and [facility] Address [address] [place] [address] Care Team Providers Care Web Developer Programmer Name Role Phone Caitlyn Bowie MD Primary Care Provider +1- [phone] Encounter Details Date Type Department Care Team (Late st Contact Info) Description 07/28/2018 Scanned Document [facility] Health Information Management [address] [place] [address] External, Provider Social History Tobacco Use Types [...] [facility] Building [address] [place], [place] [address] Ronald Mills MD 240 [facility] A1 [place] [address] documented as [...] as of this encounter Care Teams Web Developer Programmer Relationship Specialty Start Date End Date Caitlyn Bowie MD [facility] 1 [place] [address] PCP - General Internal Medicine 05/06/21 Henry Kelly MD Pulmonary Department 175 [facility], [address] [place] [address] Physician Pulmonary Disease 09/06/17 06/22/20 documented as of this encounter
--- OUTSIDE RECORDS SUMMARY | 2025-04-09 11:53 | XMS_ITS | Encounter Summary ---
Author Organization [facility] Address [address] [place] [address] Care Team Providers Care License Examiner Name Role Phone Caitlyn Bowie MD Primary Care Provider +1- [phone] Reason for Visit * Reason Comments Triage Encounter Details Date Type Department Care Team (Late st Contact Info) Description 10/18/2021 Telephone [facility] at [address] [phone] Ronald Mills MD [address] [place] [address] Triage Social History Tobacco Use Types [...] Center at [facility] 240 [facility] Building [address] [place], [place] [address] Ronald Mills MD 240 [facility] [address] [place] [address] documented as of this encounter Visit Diagnoses Not on filedocumented in this encounter Additional Health Concerns Infection Onset Date Last Indicated Resolved Time COVID-19 03/05/2022 03/05/2022 03/15/2022 7:18 PM EDT Assessment Noted Time PHQ-9 Depression Total Score: 2 11/07/19 19 2:06 PM EDT documented as of this encounter Care Teams License Examiner Relationship Specialty Start Date End Date Caitlyn Bowie MD [address] [address] PCP - General Internal Medicine 05/06/21 documented as of this encounter
--- OUTSIDE RECORDS SUMMARY | 2025-04-09 11:53 | XMS_ITS | Encounter Summary ---
Author Organization [facility] Address [address] [place] [address] Care Team Providers Care Chinese Teacher Name Role Phone Caitlyn Bowie MD Primary Care Provider +1- [phone] Encounter Details Date Type Department Care Team (Late st Contact Info) Description 12/16/2016 Scanned Document [facility] Health Information Management [address] [place] [address] External, Provider Social History Tobacco Use Types [...] [facility] Building [address] [place], [place] [phone] Ronald Mills MD 240 [facility] Max [address] [place] [address] documented as of this encounter [...] documented as of this encounter Care Teams Chinese Teacher Relationship Specialty Start Date End Date Caitlyn Bowie MD 3400 [facility] 1 [place] [address] PCP - General Internal Medicine 05/06/21 Henry Kelly MD Pulmonary Department 175 [facility], [address] [place] [address] Physician Pulmonary Disease 09/06/17 06/22/20 documented as of this encounter
--- OUTSIDE RECORDS SUMMARY | 2025-04-09 11:53 | XMS_ITS | Encounter Summary ---
Author Organization [facility] and [facility] Address [address] [place] [address] Care Team Providers Care Employment Law Attorney Name Role Phone Caitlyn Bowie MD Primary Care Provider +1- [phone] Encounter Details Date Type Department Care Team (Late st Contact Info) Description 12/16/2016 Scanned Document [facility] Health Information Management [address] [place] [address] External, Provider Social History Tobacco Use Types [...] at [facility] 240 [facility] Building [address] [place], [place] [address] Ronald Mills MD 240 [facility] A1 [place] [address] documented as of this encounter [...] as of this encounter Care Teams Employment Law Attorney Relationship Specialty Start Date End Date Caitlyn Bowie MD [facility] 1 [place] [address] PCP - General Internal Medicine 05/06/21 Henry Kelly MD Pulmonary Department 175 [facility], [address] [place] [address] Physician Pulmonary Disease 09/06/17 06/22/20 documented as of this encounter
--- OUTSIDE RECORDS SUMMARY | 2025-04-09 11:53 | XMS_ITS | Encounter Summary ---
Author Organization [facility] and [facility] Address [address] [place] [address] Care Team Providers Care Reformatory Attendant Name Role Phone Caitlyn Bowie MD Primary Care Provider +1- [phone] Encounter Details Date Type Department Care Team (Late st Contact Info) Description 07/30/2018 Scanned Document [facility] Health Information Management [address] [place] [address] External, Provider Social History Tobacco Use Types [...] [facility] 240 [facility] Building [address] [place], [place] [phone] Ronald Mills MD [address] [place] [address] [address] [place] [address] documented as of this encounter [...] documented as of this encounter Care Teams Reformatory Attendant Relationship Specialty Start Date End Date Caitlyn Bowie MD [facility] 1 [place] [address] PCP - General Internal Medicine 05/06/21 Henry Kelly MD Pulmonary Department 175 [facility], [address] [place] [address] Physician Pulmonary Disease 09/06/17 06/22/20 documented as of this encounter
--- OUTSIDE RECORDS SUMMARY | 2025-04-09 11:53 | XMS_ITS | Encounter Summary ---
Author Organization [facility] and [facility] Address [address] [place] [address] Care Team Providers Care Rum Processing Operator Name Role Phone Caitlyn Bowie MD Primary Care Provider +1- [phone] Encounter Details Date Type Department Care Team (Late st Contact Info) Description 03/14/2018 Scanned Document [facility] Health Information Management [address] [place] [address] External, Provider Social History Tobacco Use Types [...] at [facility] [address] [facility] Building [address] [place], [place] [phone] Ronald Mills MD [address] [place] [address] [address]1 [place] [address] documented as of this encounter [...] documented as of this encounter Care Teams Rum Processing Operator Relationship Specialty Start Date End Date Caitlyn Bowie MD 3400 [facility] 1 [place] [address] PCP - General Internal Medicine 05/06/21 Henry Kelly MD Pulmonary Department 175 [facility], [address] [place] [address] Physician Pulmonary Disease 09/06/17 06/22/20 documented as of this encounter
--- OUTSIDE RECORDS SUMMARY | 2025-04-09 11:53 | XMS_ITS | Encounter Summary ---
Author Organization [facility] and [facility] Address [address] [place] [address] Care Team Providers Care Roundsman Name Role Phone Caitlyn Bowie MD Primary Care Provider +1- [phone] Encounter Details Date Type Department Care Team (Late st Contact Info) Description 09/17/2020 Scanned Document [facility] Health Information Management [address] [place] [address] External, Provider Social History Tobacco Use Types [...] Telemedicine [facility] 240 [facility] Building [address] [place], [place] [phone] Ronald Mills MD [address] [place] [address] [address]1 [place] [address] documented as of this encounter [...] documented as of this encounter Care Teams Roundsman Relationship Specialty Start Date End Date Caitlyn Bowie MD [address] [address] PCP - General Internal Medicine 05/06/21 documented as of this encounter
--- OUTSIDE RECORDS SUMMARY | 2025-04-09 11:53 | XMS_ITS | Encounter Summary ---
Author Organization [facility] and [facility] Address [address] [place] [address] Care Team Providers Care Central Office Installer Name Role Phone Caitlyn Bowie MD Primary Care Provider +1- [phone] Encounter Details Date Type Department Care Team (Late st Contact Info) Description 12/19/2016 Scanned Document [facility] Health Information Management [address] [place] [address] External, Provider Social History Tobacco Use Types [...] [facility] 240 [facility] Building [address] [place], [place] [address] Ronald Mills MD 240 [facility] Max [address]1 [place] [address] documented as of this encounter [...] as of this encounter Care Teams Central Office Installer Relationship Specialty Start Date End Date Caitlyn Bowie MD [facility] 1 [place] [address] PCP - General Internal Medicine 05/06/21 Henry Kelly MD Pulmonary Department 175 [facility], [address] [place] [address] Physician Pulmonary Disease 09/06/17 06/22/20 documented as of this encounter
--- OUTSIDE RECORDS SUMMARY | 2025-04-09 11:53 | XMS_ITS | Encounter Summary ---
Author Organization [facility] and [facility] Address [address] [place] [address] Care Team Providers Care Waist Pleater Name Role Phone Caitlyn Bowie MD Primary Care Provider +1- [phone] Encounter Details Date Type Department Care Team (Late st Contact Info) Description 12/16/2016 Scanned Document [facility] Health Information Management [address] [place] [address] External, Provider Social History Tobacco Use Types [...] [facility] [place] [facility] 240 [facility] Building [address] [place], [place] [address] Ronald Mills MD 240 [facility] Max A1 [place] [address] documented as of this encounter [...] Date End Date Caitlyn Bowie MD 3400 [facility] 1 [place] [address] PCP - General Internal Medicine 05/06/21 Henry Kelly MD Pulmonary Department 175 [facility], [address] [place] [address] Physician Pulmonary Disease 09/06/17 06/22/20 documented as of this encounter
--- OUTSIDE RECORDS SUMMARY | 2025-04-09 11:53 | XMS_ITS | Encounter Summary ---
Author Organization [facility] and [facility] Address [address] [place] [address] Care Team Providers Care Gathering Machine Setter Name Role Phone Caitlyn Bowie MD Primary Care Provider +1- [phone] Encounter Details Date Type Department Care Team (Late st Contact Info) Description 02/20/2017 Scanned Document [facility] Health Information Management [address] [place] [address] External, Provider Social History Tobacco Use Types [...] [facility] 240 [facility] Building [address] [place], [place] [phone] Ronald Mills MD 240 [facility] Max [address]1 [place] [address] documented as of this encounter [...] documented as of this encounter Care Teams Gathering Machine Setter Relationship Specialty Start Date End Date Caitlyn Bowie MD 3400 [facility] 1 [place] [address] PCP - General Internal Medicine 05/06/21 Henry Kelly MD Pulmonary Department 175 [facility], [address] [place] [address] Physician Pulmonary Disease 09/06/17 06/22/20 documented as of this encounter
--- OUTSIDE RECORDS SUMMARY | 2025-04-09 11:53 | XMS_ITS | Encounter Summary ---
Author Organization [facility] and [facility] Address [address] [place] [address] Care Team Providers Care Spray Worker Name Role Phone Caitlyn Bowie MD Primary Care Provider +1- [phone] Encounter Details Date Type Department Care Team (Late st Contact Info) Description 08/07/2018 Scanned Document [facility] Health Information Management [address] [place] [address] External, Provider Social History Tobacco Use Types [...] [facility] 240 [facility] Building [address] [place], [place] [phone] Ronald Mills MD [address] [place] [address] A1 [place] [address] documented as of this encounter Visit Diagnoses Not on filedocumented in this encounter Additional Health Concerns Infection Onset Date Last Indicated Resolved Time COVID-19 03/05/2022 03/05/2022 03/15/2022 7:18 PM EDT documented as of this encounter Care Teams Spray Worker Relationship Specialty Start Date End Date Caitlyn Bowie MD 3400 [facility] 1 [place] [address] PCP - General Internal Medicine 05/06/21 Henry Kelly MD Pulmonary Department 175 [facility], [address] [place] [address] Physician Pulmonary Disease 09/06/17 06/22/20 documented as of this encounter
--- OUTSIDE RECORDS SUMMARY | 2025-04-09 11:53 | XMS_ITS | Encounter Summary ---
Author Organization [facility] and [facility] Address 20 [place] [address] Care Team Providers Care Making Line Worker Name Role Phone Caitlyn Bowie MD Primary Care Provider +1- [phone] Encounter Details Date Type Department Care Team (Late st Contact Info) Description 11/19/2021 Scanned Document Cardiovascular Medicine at [address] 2nd [place] [address] Norma Renee MD [address] [place] [address] Social History Tobacco Use Types Packs/Day [...] PM EDT Telemedicine Cancer Center at [address] [place] [address] Ronald Mills MD 240 [facility] A1 [place] [address] documented as of this encounter Visit Diagnoses Not on filedocumented in this encounter Additional Health Concerns Infection Onset Date Last Indicated Resolved Time COVID-19 03/05/2022 03/05/2022 03/15/2022 7:18 PM EDT Assessment Noted Time PHQ-9 Depression Total Score: 2 11/07/19 19 2:06 PM EDT documented as of this encounter Care Teams Making Line Worker Relationship Specialty Start Date End Date Caitlyn Bowie MD [address] [address] PCP - General Internal Medicine 05/06/21 documented as of this encounter
--- OUTSIDE RECORDS SUMMARY | 2025-04-09 11:53 | XMS_ITS | Encounter Summary ---
Author Organization [facility] and [facility] Address [address] [place] [address] Care Team Providers Care Per Diem Rn Name Role Phone Caitlyn Bowie MD Primary Care Provider +1- [phone] Encounter Details Date Type Department Care Team (Late st Contact Info) Description 09/16/2020 Scanned Document [facility] Health Information Management [address] [place] [address] External, Provider Social History Tobacco Use Types [...] [facility] 240 [facility] Building [address] [place], [place] [phone] Ronald Mills MD [address] [place] [address] [address]1 [place] [address] documented as of this encounter Procedures Procedure [...] documented as of this encounter Care Teams Per Diem Rn Relationship Specialty Start Date End Date Caitlyn Bowie MD [address] [address] PCP - General Internal Medicine 05/06/21 documented as of this encounter
--- OUTSIDE RECORDS SUMMARY | 2025-04-09 11:53 | XMS_ITS | Encounter Summary ---
Author Organization [facility] Address [address] [place] [address] Care Team Providers Care Electron Beam Welder Name Role Phone Caitlyn Bowie MD Primary Care Provider +1- [phone] Encounter Details Date Type Department Care Team (Late st Contact Info) Description 07/08/2020 Scanned Document [facility] Health Information Management [address] [place] [address] External, Provider Social History Tobacco Use Types [...] [facility] at [facility] 240 [facility] Building [address] [place], [place] [address] Ronald Mills MD [address] [place] [address] [address]1 [place] [address] documented as of this encounter [...] of this encounter Care Teams Electron Beam Welder Relationship Specialty Start Date End Date Caitlyn Bowie MD [address] [address] PCP - General Internal Medicine 05/06/21 documented as of this encounter
--- OUTSIDE RECORDS SUMMARY | 2025-04-09 11:53 | XMS_ITS | Encounter Summary ---
Author Organization [facility] and [facility] Address [address] [place] [address] Care Team Providers Care Radioisotope Production Operator Name Role Phone Caitlyn Bowie MD Primary Care Provider +1- [phone] Encounter Details Date Type Department Care Team (Late st Contact Info) Description 02/20/2017 Scanned Document [facility] Health Information Management [address] [place] [phone] External, Provider Social History Tobacco Use Types [...] [facility] [address] [facility] Building [address] [place], [place] [phone] Ronald Mills MD 240 [facility] Max A1 [place] [address] documented as of this encounter [...] documented as of this encounter Care Teams Radioisotope Production Operator Relationship Specialty Start Date End Date Caitlyn Bowie MD 3400 [facility] Max 1 [place] [address] PCP - General Internal Medicine 05/06/21 Henry Kelly MD Pulmonary Department 175 [facility], [address] [place] [address] Physician Pulmonary Disease 09/06/17 06/22/20 documented as of this encounter
--- OUTSIDE RECORDS SUMMARY | 2025-04-09 11:53 | XMS_ITS | Encounter Summary ---
Author Organization [facility] and [facility] Address [address] [place] [address] Care Team Providers Care Loan Auditor Name Role Phone Caitlyn Bowie MD Primary Care Provider +1- [phone] Encounter Details Date Type Department Care Team (Late Contact Info) Description 09/15/2020 Scanned Document [facility] Health Information Management [address] [place] [address] External, Provider Social History Tobacco Use Types [...] [facility] 240 [facility] Building [address] [place], [place] [address] Ronald Mills MD [address] [place] [address] [address]1 [place] [address] documented as of this encounter [...] as of this encounter Care Teams Loan Auditor Relationship Specialty Start Date End Date Caitlyn Bowie MD [address] [address] PCP - General Internal Medicine 05/06/21 documented as of this encounter
--- OUTSIDE RECORDS SUMMARY | 2025-04-09 11:53 | XMS_ITS | Encounter Summary ---
Author Organization [facility] and [facility] Address [address] [place] [address] Care Team Providers Care Needle Bar Molder Name Role Phone Caitlyn Bowie MD Primary Care Provider +1- [phone] Encounter Details Date Type Department Care Team (Late Contact Info) Description 09/09/2020 Scanned Document [facility] Health Information Management [address] [place] [address] External, Provider Social History Tobacco Use Types [...] [facility] 240 [facility] Building [address] [place], [place] [phone] Ronald Mills MD [address] [place] [address] [address] [place] [address] documented as of this encounter [...] as of this encounter Care Teams Needle Bar Molder Relationship Specialty Start Date End Date Caitlyn Bowie MD [address] [address] PCP - General Internal Medicine 05/06/21 documented as of this encounter
--- OUTSIDE RECORDS SUMMARY | 2025-04-09 11:53 | XMS_ITS | Encounter Summary ---
Author Organization [facility] and [facility] Address 20 [place] [address] Care Team Providers Care Correctional Lieutenant Name Role Phone Caitlyn Bowie MD Primary Care Provider +1- [phone] Encounter Details Date Type Department Care Team (Late st Contact Info) Description 06/07/2021 Scanned Document Cancer Center at [address] [address] External, Provider Social History Tobacco Use Types [...] [facility] 240 [facility] Building [address] [place], [place] [id number] Ronald Mills MD [address] [place] [address] [address] [place] [address] documented as of this encounter Visit Diagnoses Not on filedocumented in this encounter Additional Health Concerns Infection Onset Date Last Indicated Resolved Time COVID-19 03/05/2022 03/05/2022 03/15/2022 7:18 PM EDT Assessment Noted Time PHQ-9 Depression Total Score: 2 11/07/19 19 2:06 PM EDT documented as of this encounter Care Teams Correctional Lieutenant Relationship Specialty Start Date End Date Caitlyn Bowie MD [address] [address] PCP - General Internal Medicine 05/06/21 documented as of this encounter
--- OUTSIDE RECORDS SUMMARY | 2025-04-09 11:53 | XMS_ITS | Encounter Summary ---
Author Organization [facility] and [facility] Address [address] [place] [address] Care Team Providers Care Refractory Furnace Designer Name Role Phone Caitlyn Bowie MD Primary Care Provider +1- [phone] Encounter Details Date Type Department Care Team (Late Contact Info) Description 09/18/2020 Scanned Document [facility] Health Information Management [address] [place] [address] External, Provider Social History Tobacco Use Types [...] [facility] at [facility] 240 [facility] [address] [place], [place] [phone] Ronald Mills MD [address] [place] [address] [address] [place] [address] documented as of this encounter [...] End Date Caitlyn Bowie MD [address] [address] PCP - General Internal Medicine 05/06/21 documented as of this encounter
--- OUTSIDE RECORDS SUMMARY | 2025-04-09 11:53 | XMS_ITS | Encounter Summary ---
Author Organization [facility] and [facility] Address [address] [place] [address] Care Team Providers Care Hvac Installation Technician Name Role Phone Caitlyn Bowie MD Primary Care Provider +1- [phone] Encounter Details Date Type Department Care Team (Late Contact Info) Description 10/29/2021 Scanned Document [facility] Health Information Management [address] [place] [address] External, Provider Social History Tobacco Use Types [...] [facility] at [facility] 240 [facility] Building [address] [place], [place] [phone] Ronald Mills MD [address] [place] [address] [address] [place] [address] documented as of this encounter [...] documented as of this encounter Care Teams Hvac Installation Technician Relationship Specialty Start Date End Date Caitlyn Bowie MD [address] [address] PCP - General Internal Medicine 05/06/21 documented as of this encounter
--- OUTSIDE RECORDS SUMMARY | 2025-04-09 11:53 | XMS_ITS | Encounter Summary ---
Author Organization [facility] Address [address] [place] [address] Care Team Providers Care Ring Attacher Name Role Phone Caitlyn Bowie MD Primary Care Provider +1- [phone] Encounter Details Date Type Department Care Team (Late st Contact Info) Description 10/15/2018 Scanned Document [facility] Health Information Management [address] [place] [address] External, Provider Social History Tobacco Use Types [...] [facility] Building [address] [place], [place] [address] Ronald Mills MD 240 [facility] [address]1 [place] [address] documented as of this encounter Visit Diagnoses Not on filedocumented in this encounter Additional Health Concerns Infection Onset Date Last Indicated Resolved Time COVID-19 03/05/2022 03/05/2022 03/15/2022 7:18 PM EDT documented as of this encounter Care Teams Ring Attacher Relationship Specialty Start Date End Date Caitlyn Bowie MD 3400 [facility] 1 [place] [address] PCP - General Internal Medicine 05/06/21 Henry Kelly MD Pulmonary Department 175 [facility], [address] [place] [address] Physician Pulmonary Disease 09/06/17 06/22/20 documented as of this encounter
--- OUTSIDE RECORDS SUMMARY | 2025-04-09 11:53 | XMS_ITS | Encounter Summary ---
Author Organization [facility] and [facility] Address [address] [place] [address] Care Team Providers Care Platform Power Technician Name Role Phone Caitlyn Bowie MD Primary Care Provider +1- [phone] Encounter Details Date Type Department Care Team (Late st Contact Info) Description 05/19/2020 Scanned Document Cancer Center at [address] [address] External, Provider Social History Tobacco Use Types [...] [facility] at [facility] 240 [facility] Building [address] [place], [place] [address] Ronald Mills MD [address] [place] [address] [address] [place] [address] documented as of this encounter [...] as of this encounter Care Teams Platform Power Technician Relationship Specialty Start Date End Date Caitlyn Bowie MD 3400 [facility] 1 [place] [address] PCP - General Internal Medicine 05/06/21 Henry Kelly MD Pulmonary Department 175 [facility], [address] [place] [address] Physician Pulmonary Disease 09/06/17 06/22/20 documented as of this encounter
--- OUTSIDE RECORDS SUMMARY | 2025-04-09 11:53 | XMS_ITS | Encounter Summary ---
Author Organization [facility] and [facility] Address [address] [place] [address] Care Team Providers Care Certified Ethical Hacker Name Role Phone Caitlyn Bowie MD Primary Care Provider +1- [phone] Encounter Details Date Type Department Care Team (Late st Contact Info) Description 07/26/2018 Scanned Document [facility] Health Information Management [address] [place] [address] External, Provider Social History Tobacco Use Types [...] [facility] 240 [facility] Building [address] [place], [place] [address] Ronald Mills MD 240 [facility] [address]1 [place] [address] documented as of this encounter [...] as of this encounter Care Teams Certified Ethical Hacker Relationship Specialty Start Date End Date Caitlyn Bowie MD 3400 [facility] 1 [place] [address] PCP - General Internal Medicine 05/06/21 Henry Kelly MD Pulmonary Department 175 [facility], [address] [place] [address] Physician Pulmonary Disease 09/06/17 06/22/20 documented as of this encounter
--- OUTSIDE RECORDS SUMMARY | 2025-04-09 11:53 | XMS_ITS | Encounter Summary ---
Author Organization [facility] and [facility] Address 20 [place] [address] Care Team Providers Care Nutrition Therapist Name Role Phone Caitlyn Bowie MD Primary Care Provider +1- [phone] Encounter Details Date Type Department Care Team (Late st Contact Info) Description 05/14/2020 Documentation Hematology Program at [address] [address] Taya Nuno RN Social History Tobacco Use [...] PM EDT Telemedicine Cancer Center at [address] [place] [address] Ronald Mills MD [address] [place] [address] documented as of this encounter Visit [...] MD 3400 [facility] [place] [address] 1 [place] [address] PCP - General Internal Medicine 05/06/21 Henry Kelly MD Pulmonary Department 175 [facility], [address] [place] [address] Physician Pulmonary Disease 09/06/17 06/22/20 documented as of this encounter
--- OUTSIDE RECORDS SUMMARY | 2025-04-09 11:53 | XMS_ITS | Encounter Summary ---
Author Organization [facility] and [facility] Address [address] [place] [address] Care Team Providers Care Concrete Block Mason Name Role Phone Caitlyn Bowie MD Primary Care Provider +1- [phone] Encounter Details Date Type Department Care Team (Late st Contact Info) Description 12/16/2016 Scanned Document [facility] Health Information Management [address] [place] [address] External, Provider Social History Tobacco Use Types [...] [facility] 240 [facility] Building [address] [place], [place] [address] Ronald Mills MD 240 [facility] [address] [place] [address] documented as of this encounter [...] as of this encounter Care Teams Concrete Block Mason Relationship Specialty Start Date End Date Caitlyn Bowie MD 3400 [facility] 1 [place] [address] PCP - General Internal Medicine 05/06/21 Henry Kelly MD Pulmonary Department 175 [facility], [address] [place] [address] Physician Pulmonary Disease 09/06/17 06/22/20 documented as of this encounter
--- OUTSIDE RECORDS SUMMARY | 2025-04-09 11:53 | XMS_ITS | Encounter Summary ---
Author Organization [facility] and [facility] Address [address] [place] [address] Care Team Providers Care Wire Roller Name Role Phone Caitlyn Bowie MD Primary Care Provider +1- [phone] Encounter Details Date Type Department Care Team (Late Contact Info) Description 09/16/2020 Scanned Document [facility] Health Information Management [address] [place] [address] External, Provider Social History Tobacco Use Types [...] [facility] 240 [facility] Building [address] [place], [place] [address] Ronald Mills MD [address] [place] [address] [address] [place] [address] documented as of this encounter [...] as of this encounter Care Teams Wire Roller Relationship Specialty Start Date End Date Caitlyn Bowie MD [address] [address] PCP - General Internal Medicine 05/06/21 documented as of this encounter
--- OUTSIDE RECORDS SUMMARY | 2025-04-09 11:54 | XMS_ITS | Encounter Summary ---
Author Organization [facility] and [facility] Address 20 [place] [address] Care Team Providers Care Yeast Supervisor Name Role Phone Caitlyn Bowie MD Primary Care Provider +1- [phone] Encounter Details Date Type Department Care Team (Late st Contact Info) Description 05/17/2021 Scanned Document Cancer Center at [address] [address] External, Provider Social History Tobacco Use Types [...] [facility] Building [address] [place], [place] [address] Ronald Mills MD [address] [place] [address] [address]1 [place] [address] documented as of this encounter [...] documented as of this encounter Care Teams Yeast Supervisor Relationship Specialty Start Date End Date Caitlyn Bowie MD [address] [address] PCP - General Internal Medicine 05/06/21 documented as of this encounter
--- OUTSIDE RECORDS SUMMARY | 2025-04-09 11:54 | XMS_ITS | Encounter Summary ---
Author Organization [facility] and [facility] Address [address] [place] [address] Care Team Providers Care Skilled Labor Name Role Phone Caitlyn Bowie MD Primary Care Provider +1- [phone] Encounter Details Date Type Department Care Team (Late st Contact Info) Description 09/24/2021 Scanned Document INTERFACE DEFAULT [address] [place] [address] System, Provider Not In Social History Tobacco [...] at [facility] 240 [facility] [address] [place] [address] Ronald Mills MD [address] [place] [address] [address] [place] [address] documented as of this encounter [...] as of this encounter Care Teams Skilled Labor Relationship Specialty Start Date End Date Caitlyn Bowie MD [facility] [address] [address] PCP - General Internal Medicine 05/06/21 documented as of this encounter
--- OUTSIDE RECORDS SUMMARY | 2025-04-09 11:54 | XMS_ITS | Encounter Summary ---
Author Organization [facility] Address [address] [place] [address] Care Team Providers Care Glove Examiner Name Role Phone Caitlyn Bowie MD Primary Care Provider +1- [phone] Encounter Details Date Type Department Care Team (Late st Contact Info) Description 07/26/2012 Abstract [facility] Health Information Management [address] [place] [address] [place], Primary Care [address] [place] [address] Social History Tobacco Use Types Packs/Day Years [...] PM EDT Telemedicine Cancer Center at [address] [place], [place] [address] Ronald Mills MD [address] [place] [address] documented as of this encounter Visit Diagnoses Not on filedocumented in this encounter Additional Health Concerns Infection Onset Date Last Indicated Resolved Time COVID-19 03/05/2022 03/05/2022 03/15/2022 7:18 PM EDT documented as of this encounter Care Teams Glove Examiner Relationship Specialty Start Date End Date Caitlyn Bowie MD 3400 [facility] 1 [place] [address] PCP - General Internal Medicine 05/06/21 Henry Kelly MD Pulmonary Department 175 [facility], [address] [place] [address] Physician Pulmonary Disease 09/06/17 06/22/20 documented as of this encounter
--- OUTSIDE RECORDS SUMMARY | 2025-04-09 11:54 | XMS_ITS | Encounter Summary ---
Author Organization [facility] and [facility] Address [address] [place] [address] Care Team Providers Care Automobile Rental Representative Name Role Phone Caitlyn Bowie MD Primary Care Provider +1- [phone] Encounter Details Date Type Department Care Team (Late st Contact Info) Description 09/02/2021 Scanned Document INTERFACE DEFAULT [address] [place] [address] System, Provider Not In Social History Tobacco [...] – [facility] 240 [facility] Building [address] [place], [place] [address] Ronald Mills MD [address] [place] [address] [address] [place] [address] documented as of this encounter [...] as of this encounter Care Teams Automobile Rental Representative Relationship Specialty Start Date End Date Caitlyn Bowie MD [address] [address] PCP - General Internal Medicine 05/06/21 documented as of this encounter
--- OUTSIDE RECORDS SUMMARY | 2025-04-09 11:54 | XMS_ITS | Encounter Summary ---
Author Organization [facility] and [facility] Address [address] [place] [address] Care Team Providers Care Casting Operator Name Role Phone Caitlyn Bowie MD Primary Care Provider +1- [phone] Encounter Details Date Type Department Care Team (Late st Contact Info) Description 08/16/2012 Abstract [facility] Health Information Management [address] [place] [address] [place], Primary Care [address] [place] [address] Social History Tobacco Use Types Packs/Day Years [...] PM EDT Telemedicine Cancer Center at [address] [place], [place] [address] Ronald Mills MD [address] [facility] [address] [place] [address] documented as of this encounter Visit Diagnoses Not on filedocumented in this encounter Additional Health Concerns Infection Onset Date Last Indicated Resolved Time COVID-19 03/05/2022 03/05/2022 03/15/2022 7:18 PM EDT documented as of this encounter Care Teams Casting Operator Relationship Specialty Start Date End Date Caitlyn Bowie MD 3400 [facility] 1 [place] [address] PCP - General Internal Medicine 05/06/21 Henry Kelly MD Pulmonary Department [address] [place] [address], [address] [place] [address] Physician Pulmonary Disease 09/06/17 06/22/20 documented as of this encounter
--- OUTSIDE RECORDS SUMMARY | 2025-04-09 11:54 | XMS_ITS | Encounter Summary ---
Author Organization [facility] and [facility] Address [address] [place] [address] Care Team Providers Care Chief Operator Hydroformer Name Role Phone Caitlyn Bowie MD Primary Care Provider +1- [phone] Encounter Details Date Type Department Care Team (Latest Contact Info) Description 04/15/2013 Transcribed Orders [facility] [address] [place] [address] Tian Atwood MD [address] [facility] 102 [place] [address] Unspecified hypothyroidism (Primary [...] [facility] 240 [facility] Building [address] [place] [address] Ronald Mills MD 240 [facility] A1 [place] [address] documented as of this encounter Results * Copper, serum total (YH) (04/15/2013 4:31 PM EDT) Copper, Serum Total SEE BELOW [facility] Comment: Test Result Flag Unit RefValue Copper, S 1.35 mcg/mL 0.75-1.45 04/15/2013 4:31 PM EDT us Tian Atwood MD LAB BLOOD ORDERABLES Final R esult [facility] [address] [place] [address] documented in this encounter Visit Diagnoses Diagnosis Unspecified hypothyroidism- Primary documented in this encounter Additional Health Concerns Infection Onset Date Last Indicated Resolved Time COVID-19 03/05/2022 03/05/2022 03/15/2022 7:18 PM EDT documented as of this encounter Care Teams Chief Operator Hydroformer Relationship Specialty Start Date End Date Caitlyn Bowie MD 3400 [facility] 1 [place] [address] PCP - General Internal Medicine 05/06/21 Henry Kelly MD Pulmonary Department 175 [facility], [address] [place] [address] Physician Pulmonary Disease 09/06/17 06/22/20 documented as of this encounter
--- OUTSIDE RECORDS SUMMARY | 2025-04-09 11:54 | XMS_ITS | Encounter Summary ---
Author Organization [facility] and [facility] Address [address] [place] [address] Care Team Providers Care Drum Reel Cutter Name Role Phone Caitlyn Bowie MD Primary Care Provider +1- [phone] Encounter Details Date Type Department Care Team (Late st Contact Info) Description 07/07/2021 Scanned Document INTERFACE DEFAULT [address] [place] [address] System, Provider Not In Social History Tobacco [...] – [facility] 240 [facility] Building [address] [place] [address] Ronald Mills MD [address] [place] [address] [address]1 [place] [address] documented as of this encounter Visit Diagnoses Not on filedocumented in this encounter Additional Health Concerns Infection Onset Date Last Indicated Resolved Time COVID-19 03/05/2022 03/05/2022 03/15/2022 7:18 PM EDT Assessment Noted Time PHQ-9 Depression Total Score: 2 11/07/19 19 2:06 PM EDT documented as of this encounter Care Teams Drum Reel Cutter Relationship Specialty Start Date End Date Caitlyn Bowie MD [address] [address] PCP - General Internal Medicine 05/06/21 documented as of this encounter
--- OUTSIDE RECORDS SUMMARY | 2025-04-09 11:54 | XMS_ITS | Encounter Summary ---
Author Organization [facility] and [facility] Address [address] [place] [address] Care Team Providers Care Fur Nailer Name Role Phone Caitlyn Bowie MD Primary Care Provider +1- [phone] Reason for Visit * Reason Comments Advice Only Encounter Details Date Type Department Care Team ([facility] st Contact Info) Description 06/01/2021 Telephone [facility] at [address] [address] Ronald Mills MD [address] [place] [address] Advice Only Social History Tobacco Use [...] added that she's called before and sent [place] messages but hasn't received a reply,[phone]. documented in this encounter Plan of Treatment Upcoming Encounters Date Type Department Care Team (Late st Contact Info) Description 04/25/2025 4:00 PM EDT Telemedicine Cancer Center at [facility] 240 [facility] Building [address] [place], [place] [address] Ronald Mills MD 240 [facility] Max [address] [place] [address] documented as of this encounter Visit Diagnoses Not on filedocumented in this encounter Additional Health Concerns Infection Onset Date Last Indicated Resolved Time COVID-19 03/05/2022 03/05/2022 03/15/2022 7:18 PM EDT Assessment Noted Time PHQ-9 Depression Total Score: 2 11/07/19 19 2:06 PM EDT documented as of this encounter Care Teams Fur Nailer Relationship Specialty Start Date End Date Caitlyn Bowie MD 3400 [facility] 1 [place] [address] PCP - General Internal Medicine 05/06/21 documented as of this encounter
--- OUTSIDE RECORDS SUMMARY | 2025-04-09 11:54 | XMS_ITS | Encounter Summary ---
Author Organization [facility] and [facility] Address [address] [place] [address] Care Team Providers Care Nicker Name Role Phone Caitlyn Bowie MD Primary Care Provider +1- [phone] Encounter Details Date Type Department Care Team (Late st Contact Info) Description 04/29/2021 Scanned Document INTERFACE DEFAULT [address] [place] [address] System, Provider Not In Social History Tobacco [...] at [facility] 240 [facility] Building [address] [place] [address] Ronald Mills MD [address] [place] [address] [address] [place] [address] documented as of this encounter [...] as of this encounter Care Teams Nicker Relationship Specialty Start Date End Date Caitlyn Bowie MD [address] [address] PCP - General Internal Medicine 05/06/21 documented as of this encounter
--- OUTSIDE RECORDS SUMMARY | 2025-04-09 11:54 | XMS_ITS | Encounter Summary ---
Author Organization [facility] Address [address] [place] [address] Care Team Providers Care Insole Presser Name Role Phone Caitlyn Bowie MD Primary Care Provider +1- [phone] Encounter Details Date Type Department Care Team (Late st Contact Info) Description 09/07/2021 Scanned Document INTERFACE DEFAULT [address] [place] [address] System, Provider Not In Social History Tobacco [...] [facility] 240 [facility] Building [address] [place], [place] [address] Ronald Mills MD [address] [place] [address] [address] [place] [address] documented as of this encounter [...] documented as of this encounter Care Teams Insole Presser Relationship Specialty Start Date End Date Caitlyn Bowie MD [address] [address] PCP - General Internal Medicine 05/06/21 documented as of this encounter
--- OUTSIDE RECORDS SUMMARY | 2025-04-09 11:54 | XMS_ITS | Encounter Summary ---
Author Organization [facility] Address [address] [place] [address] Care Team Providers Care Planning Engineer Name Role Phone Caitlyn Bowie MD Primary Care Provider +1- [phone] Encounter Details Date Type Department Care Team (Late st Contact Info) Description 01/22/2020 Scanned Document [facility] [address] [place] [address] Kerwin Menjivar MD 260 [facility] 3 [place] [address] Social History Tobacco Use Types [...] PM EDT Telemedicine Cancer Center at [address] [place] [address] Ronald Mills MD 240 [facility] Max [address]1 [place] [address] documented as of this encounter Visit Diagnoses Not on filedocumented in this encounter Additional Health Concerns Infection Onset Date Last Indicated Resolved Time COVID-19 03/05/2022 03/05/2022 03/15/2022 7:18 PM EDT Assessment Noted Time PHQ-9 Depression Total Score: 2 11/07/19 19 2:06 PM EDT documented as of this encounter Care Teams Planning Engineer Relationship Specialty Start Date End Date Caitlyn Bowie MD [address] [address] PCP - General Internal Medicine 05/06/21 Henry Kelly MD Pulmonary Department [address] [place] [address], [address] [place] [address] Physician Pulmonary Disease 09/06/17 06/22/20 documented as of this encounter
--- OUTSIDE RECORDS SUMMARY | 2025-04-09 11:54 | XMS_ITS | Encounter Summary ---
Author Organization [facility] Address [address] [place] [address] Care Team Providers Care Gas Station Clerk Name Role Phone Caitlyn Bowie MD Primary Care Provider +1- [phone] Encounter Details Date Type Department Care Team (Late st Contact Info) Description 09/10/2021 Scanned Document Cardiovascular Medicine at [address] [place], [place] [address] Norma Renee MD [address] [place] [phone] Social History Tobacco Use Types Packs/Day Years [...] PM EDT Telemedicine Cancer Center at [address] [place], [place] [address] Ronald Mills MD [address] [place] [address] [address] [place] [address] documented as of this encounter Visit Diagnoses Not on filedocumented in this encounter Additional Health Concerns Infection Onset Date Last Indicated Resolved Time COVID-19 03/05/2022 03/05/2022 03/15/2022 7:18 PM EDT Assessment Noted Time PHQ-9 Depression Total Score: 2 11/07/19 19 2:06 PM EDT documented as of this encounter Care Teams Gas Station Clerk Relationship Specialty Start Date End Date Caitlyn Bowie MD [address] [address] PCP - General Internal Medicine 05/06/21 documented as of this encounter
--- OUTSIDE RECORDS SUMMARY | 2025-04-09 11:54 | XMS_ITS | Encounter Summary ---
Author Organization [facility] and [facility] Address [address] [place] [address] Care Team Providers Care Clinical Courier Name Role Phone Caitlyn Bowie MD Primary Care Provider +1- [phone] Encounter Details Date Type Department Care Team (Late st Contact Info) Description 06/27/2019 Scanned Document Onco-Oncology Program at [address] [place] [address] Norma Renee MD [address] [place] [address] 2 [place] [address] Social History Tobacco Use Types [...] PM EDT Telemedicine Cancer Center at [address] [place], [place] [phone] Ronald Mills MD 240 [facility] A1 [place] [address] documented as of this encounter Visit Diagnoses Not on filedocumented in this encounter Additional Health Concerns Infection Onset Date Last Indicated Resolved Time COVID-19 03/05/2022 03/05/2022 03/15/2022 7:18 PM EDT Assessment Noted Time PHQ-9 Depression Total Score: 2 11/07/19 19 2:06 PM EDT documented as of this encounter Care Teams Clinical Courier Relationship Specialty Start Date End Date Caitlyn Bowie MD 3400 [facility] 1 [place] [address] PCP - General Internal Medicine 05/06/21 Henry Kelly MD Pulmonary Department 175 [facility], [address] [place] [address] Physician Pulmonary Disease 09/06/17 06/22/20 documented as of this encounter
--- OUTSIDE RECORDS SUMMARY | 2025-04-09 11:54 | XMS_ITS | Encounter Summary ---
Author Organization [facility] Address [address] [place] [address] Care Team Providers Care Fisher Net Name Role Phone Caitlyn Bowie MD Primary Care Provider +1- [phone] Encounter Details Date Type Department Care Team (Late st Contact Info) Description 12/03/2019 Scanned Document [facility] Health Information Management [address] [place] [address] External, Provider Social History Tobacco Use Types [...] Services [facility] 240 [facility] [address] [place] [address] Ronald Mills MD [address] [place] [address] [address] [place] [address] documented as of this encounter Visit Diagnoses Not on filedocumented in this encounter Additional Health Concerns Infection Onset Date Last Indicated Resolved Time COVID-19 03/05/2022 03/05/2022 03/15/2022 7:18 PM EDT Assessment Noted Time PHQ-9 Depression Total Score: 2 11/07/19 19 2:06 PM EDT documented as of this encounter Care Teams Fisher Net Relationship Specialty Start Date End Date Caitlyn Bowie MD 3400 [facility] 1 [place] [address] PCP - General Internal Medicine 05/06/21 Henry Kelly MD Pulmonary Department 175 [facility], [address] [place] [address] Physician Pulmonary Disease 09/06/17 06/22/20 documented as of this encounter
--- OUTSIDE RECORDS SUMMARY | 2025-04-09 11:54 | XMS_ITS | Encounter Summary ---
Author Organization [facility] and [facility] Address [address] [place] [address] Care Team Providers Care Electronic Equipment Maint Tech Name Role Phone Catilyn Bowie MD Primary Care Provider +1- [phone] Encounter Details Date Type Department Care Team (Late st Contact Info) Description 04/28/2021 Scanned Document INTERFACE DEFAULT [address] [place] [address] System, Provider Not In Social History Tobacco [...] [facility] Center at [facility] 240 [facility] Building [address] [place], [place] [phone] Ronald Mills MD [address] [place] [address] [address] [place] [address] documented as of this encounter [...] as of this encounter Care Teams Electronic Equipment Maint Tech Relationship Specialty Start Date End Date Caitlyn Bowie MD [address] [address] PCP - General Internal Medicine 05/06/21 documented as of this encounter
--- OUTSIDE RECORDS SUMMARY | 2025-04-09 11:54 | XMS_ITS | Encounter Summary ---
Author Organization [facility] Address [address] [place] [address] Care Team Providers Care Home Theater Installer Name Role Phone Caitlyn Bowie MD Primary Care Provider +1- [phone] Encounter Details Date Type Department Care Team (Late st Contact Info) Description 08/29/2019 Scanned Document Cancer Center at [address] [address] External, Provider Social History Tobacco Use Types [...] Center at [facility] 240 [facility] Building [address] [place], [place] [address] Ronald Mills MD [address] [place] [address] [address]1 [place] [address] documented as of this encounter [...] as of this encounter Care Teams Home Theater Installer Relationship Specialty Start Date End Date Caitlyn Bowie MD 3400 [facility] 1 [place] [address] PCP - General Internal Medicine 05/06/21 Henry Kelly MD Pulmonary Department 175 [facility], [address] [place] [address] Physician Pulmonary Disease 09/06/17 06/22/20 documented as of this encounter
--- OUTSIDE RECORDS SUMMARY | 2025-04-09 11:54 | XMS_ITS | Encounter Summary ---
Author Organization [facility] and [facility] Address [address] [place] [address] Care Team Providers Care Cashier Name Role Phone Caitlyn Bowie MD Primary Care Provider +1- [phone] Encounter Details Date Type Department Care Team (Late st Contact Info) Description 06/27/2019 Scanned Document Onco-Oncology Program at [address] [place] [address] Norma Renee MD [address] [place] [address] 2 [place] [address] Social History Tobacco Use Types [...] PM EDT Telemedicine Cancer Center at [address] [place] [address] Ronald Mills MD 240 [facility] A1 [place] [address] documented as of this encounter Visit Diagnoses Not on filedocumented in this encounter Additional Health Concerns Infection Onset Date Last Indicated Resolved Time COVID-19 03/05/2022 03/05/2022 03/15/2022 7:18 PM EDT Assessment Noted Time PHQ-9 Depression Total Score: 2 11/07/19 19 2:06 PM EDT documented as of this encounter Care Teams Cashier Relationship Specialty Start Date End Date Caitlyn Bowie MD 3400 [facility] 1 [place] [address] PCP - General Internal Medicine 05/06/21 Henry Kelly MD Pulmonary Department 175 [facility], [address] [place] [address] Physician Pulmonary Disease 09/06/17 06/22/20 documented as of this encounter
--- OUTSIDE RECORDS SUMMARY | 2025-04-09 11:54 | XMS_ITS | Encounter Summary ---
Author Organization [facility] Address [address] [place] [address] Care Team Providers Care Administrative Services Officer Name Role Phone Caitlyn Bowie MD Primary Care Provider +1- [phone] Encounter Details Date Type Department Care Team (Late st Contact Info) Description 04/26/2021 Scanned Document INTERFACE DEFAULT [address] [place] [address] System, Provider Not In Social History Tobacco [...] [facility] 240 [facility] Building [address] [place], [place] [address] Ronald Mills MD [address] [place] [address] [address] [place] [address] documented as of this encounter [...] as of this encounter Care Teams Administrative Services Officer Relationship Specialty Start Date End Date Caitlyn Bowie MD [address] [address] PCP - General Internal Medicine 05/06/21 documented as of this encounter
--- OUTSIDE RECORDS SUMMARY | 2025-04-09 11:54 | XMS_ITS | Encounter Summary ---
Author Organization [facility] and [facility] Address [address] [place] [address] Care Team Providers Care Store Loss Prevention Manager Name Role Phone Caitlyn Bowie MD Primary Care Provider +1- [phone] Encounter Details Date Type Department Care Team (Late st Contact Info) Description 11/29/2019 Scanned Document [facility] Health Information Management [address] [place] [address] External, Provider Social History Tobacco Use Types [...] [facility] 240 [facility] Building [address] [place], [place] [address] Ronald Mills MD [address] [place] [address] [address]1 [place] [address] documented as of this encounter [...] as of this encounter Care Teams Store Loss Prevention Manager Relationship Specialty Start Date End Date Caitlyn Bowie MD 3400 [facility] 1 [place] [address] PCP - General Internal Medicine 05/06/21 Henry Kelly MD Pulmonary Department 175 [facility], [address] [place] [address] Physician Pulmonary Disease 09/06/17 06/22/20 documented as of this encounter
--- OUTSIDE RECORDS SUMMARY | 2025-04-09 11:54 | XMS_ITS | Encounter Summary ---
Author Organization [facility] Address [address] [place] [address] Care Team Providers Care Manager Supply Chain Name Role Phone Caitlyn Bowie MD Primary Care Provider +1- [phone] Encounter Details Date Type Department Care Team (Late st Contact Info) Description 08/29/2019 Scanned Document Cancer Center at [address] [address] External, Provider Social History Tobacco Use Types [...] [facility] 240 [facility] Building [address] [place], [place] [address] Ronald Mills MD [address] [place] [address] [address]1 [place] [address] documented as [...] this encounter Care Teams Manager Supply Chain Relationship Specialty Start Date End Date Caitlyn Bowie MD 3400 [facility] 1 [place] [address] PCP - General Internal Medicine 05/06/21 Henry Kelly MD Pulmonary Department 175 [facility], [address] [place] [address] Physician Pulmonary Disease 09/06/17 06/22/20 documented as of this encounter
--- OUTSIDE RECORDS SUMMARY | 2025-04-09 11:54 | XMS_ITS | Encounter Summary ---
Author Organization [facility] Address [address] [place] [address] Care Team Providers Care Senior It Recruiter Name Role Phone Caitlyn Bowie MD Primary Care Provider +1- [phone] Encounter Details Date Type Department Care Team (Late st Contact Info) Description 07/22/2021 Scanned Document INTERFACE DEFAULT [address] [place] [address] System, Provider Not In Social History Tobacco [...] [facility] Building [address] [place], [place] [address] Ronald Mills MD [address] [place] [address] [address]1 [place] [address] documented as of this encounter [...] as of this encounter Care Teams Senior It Recruiter Relationship Specialty Start Date End Date Caitlyn Bowie MD [address] [address] PCP - General Internal Medicine 05/06/21 documented as of this encounter
--- OUTSIDE RECORDS SUMMARY | 2025-04-09 11:54 | XMS_ITS | Encounter Summary ---
Author Organization [facility] Address [address] [place] [address] Care Team Providers Care Tail Ripper Name Role Phone Caitlyn Bowie MD Primary Care Provider +1- [phone] Encounter Details Date Type Department Care Team (Late st Contact Info) Description 04/18/2013 Documentation Hematology Program at [address] [address] Isis Ragland RN Social History Tobacco Use [...] [facility] 240 [facility] Building [address] [place], [place] [address] Ronald Mills MD 240 [facility] A1 [place] [address] documented as of this encounter Visit Diagnoses Not on filedocumented in this encounter Additional Health Concerns Infection Onset Date Last Indicated Resolved Time COVID-19 03/05/2022 03/05/2022 03/15/2022 7:18 PM EDT documented as of this encounter Care Teams Tail Ripper Relationship Specialty Start Date End Date Caitlyn Bowie MD 3400 [facility] 1 [place] [address] PCP - General Internal Medicine 05/06/21 Henry Kelly MD Pulmonary Department 175 [facility], [address] [place] [address] Physician Pulmonary Disease 09/06/17 06/22/20 documented as of this encounter
--- OUTSIDE RECORDS SUMMARY | 2025-04-09 11:54 | XMS_ITS | Encounter Summary ---
Author Organization [facility] Address [address] [place] [address] Care Team Providers Care Quality Consultant Name Role Phone Caitlyn Bowie MD Primary Care Provider +1- [phone] Encounter Details Date Type Department Care Team (Late st Contact Info) Description 01/28/2013 Scanned Document Thoracic Oncology Program at [address] [address] Solo Henry MD [address] [place] [address] Social History Tobacco Use Types Packs/Day [...] at [facility] 240 [facility] Building [address] [place], [place] [address] Ronald Mills MD 240 [facility] Max [address] [place] [address] documented as of this encounter Visit Diagnoses Not on filedocumented in this encounter Additional Health Concerns Infection Onset Date Last Indicated Resolved Time COVID-19 03/05/2022 03/05/2022 03/15/2022 7:18 PM EDT documented as of this encounter Care Teams Quality Consultant Relationship Specialty Start Date End Date Caitlyn Bowie MD 3400 [facility] Max 1 [place] [address] PCP - General Internal Medicine 05/06/21 Henry Kelly MD Pulmonary Department 175 [facility], [address] [place] [address] Physician Pulmonary Disease 09/06/17 06/22/20 documented as of this encounter
--- OUTSIDE RECORDS SUMMARY | 2025-04-09 11:54 | XMS_ITS | Encounter Summary ---
Author Organization [facility] Address [address] [place] [address] Care Team Providers Care Security Control Center Operator Name Role Phone Caitlyn Bowie MD Primary Care Provider +1- [phone] Encounter Details Date Type Department Care Team (Late st Contact Info) Description 04/25/2021 Scanned Document INTERFACE DEFAULT [address] [place] [address] System, Provider Not In Social History Tobacco [...] [facility] 240 [facility] Building [address] [place] [address] Ronald Mills MD [address] [place] [address] [address]1 [place] [address] documented as of this encounter [...] as of this encounter Care Teams Security Control Center Operator Relationship Specialty Start Date End Date Caitlyn Bowie MD [address] [address] PCP - General Internal Medicine 05/06/21 documented as of this encounter
--- OUTSIDE RECORDS SUMMARY | 2025-04-09 11:54 | XMS_ITS | Encounter Summary ---
Author Organization [facility] and [facility] Address [address] [place] [address] Care Team Providers Care Shank Rander Name Role Phone Caitlyn Bowie MD Primary Care Provider +1- [phone] Encounter Details Date Type Department Care Team (Late st Contact Info) Description 04/24/2021 Scanned Document INTERFACE DEFAULT [address] [place] [address] System, Provider Not In Social History Tobacco [...] [facility] 240 [facility] Building [address] [place], [place] [address] Ronald Mills MD [address] [place] [address] [address] [place] [address] documented as of this encounter [...] documented as of this encounter Care Teams Shank Rander Relationship Specialty Start Date End Date Caitlyn Bowie MD [address] [address] PCP - General Internal Medicine 05/06/21 documented as of this encounter
--- OUTSIDE RECORDS SUMMARY | 2025-04-09 11:54 | XMS_ITS | Encounter Summary ---
Author Organization [facility] Address [address] [place] [address] Care Team Providers Care Residential Tech Name Role Phone Caitlyn Bowie MD Primary Care Provider +1- [phone] Reason for Visit * Reason Comments FYI Encounter Details Date Type Department Care Team (Late st Contact Info) Description 05/24/2021 Telephone [facility] Thoracic Oncology Program at [facility] at [address] [place] [address] 2nd [place], [place] [phone] Solo Henry MD [address] [place] [address] FYI Social History Tobacco Use Types [...] at [facility] 240 [facility] Building [address] [place] [address] Ronald Mills MD 240 [facility] Max [address]1 [place] [address] documented as of this encounter Visit Diagnoses Not on filedocumented in this encounter Additional Health Concerns Infection Onset Date Last Indicated Resolved Time COVID-19 03/05/2022 03/05/2022 03/15/2022 7:18 PM EDT Assessment Noted Time PHQ-9 Depression Total Score: 2 11/07/19 19 2:06 PM EDT documented as of this encounter Care Teams Residential Tech Relationship Specialty Start Date End Date Caitlyn Bowie MD 3400 [facility] 1 [place] [address] PCP - General Internal Medicine 05/06/21 documented as of this encounter
--- OUTSIDE RECORDS SUMMARY | 2025-04-09 11:54 | XMS_ITS | Encounter Summary ---
Author Organization [facility] [place] [facility] Address [address] [place] [address] Care Team Providers Care Waterworks Supervisor Name Role Phone Caitlyn Bowie MD Primary Care Provider +1- [phone] Encounter Details Date Type Department Care Team (Late st Contact Info) Description 05/05/2021 Scanned Document INTERFACE DEFAULT [address] [place] [address] System, Provider Not In Social History Tobacco [...] [facility] Building [address] [place] [address] Ronald Mills MD [address] [place] [address] [address]1 [place] [address] documented as of this encounter Visit Diagnoses Not on filedocumented in this encounter Additional Health Concerns Infection Onset Date Last Indicated Resolved Time COVID-19 03/05/2022 03/05/2022 03/15/2022 7:18 PM EDT Assessment Noted Time PHQ-9 Depression Total Score: 2 11/07/19 19 2:06 PM EDT documented as of this encounter Care Teams Waterworks Supervisor Relationship Specialty Start Date End Date Caitlyn Bowie MD [address] [address] PCP - General Internal Medicine 05/06/21 documented as of this encounter
--- OUTSIDE RECORDS SUMMARY | 2025-04-09 11:54 | XMS_ITS | Encounter Summary ---
Author Organization [facility] Address [address] [place] [address] Care Team Providers Care Pediatric Oncologist Name Role Phone Caitlyn Bowie MD Primary Care Provider +1- [phone] Encounter Details Date Type Department Care Team (Late st Contact Info) Description 06/07/2021 Scanned Document Onco-Oncology Program at [address] [place] [address] Norma Renee MD [address] [place] [address] 2 [place] [address] Social History Tobacco Use Types [...] PM EDT Telemedicine Cancer Center at [address] [place] [address] [place], [place] [address] Ronald Mills MD 240 [facility] A1 [place] [address] documented as of this encounter Visit Diagnoses Not on filedocumented in this encounter Additional Health Concerns Infection Onset Date Last Indicated Resolved Time COVID-19 03/05/2022 03/05/2022 03/15/2022 7:18 PM EDT Assessment Noted Time PHQ-9 Depression Total Score: 2 11/07/19 19 2:06 PM EDT documented as of this encounter Care Teams Pediatric Oncologist Relationship Specialty Start Date End Date Caitlyn Bowie MD [address] [address] PCP - General Internal Medicine 05/06/21 documented as of this encounter
--- OUTSIDE RECORDS SUMMARY | 2025-04-09 11:54 | XMS_ITS | Encounter Summary ---
Author Organization [facility] Address [address] [place] [address] Care Team Providers Care Sod Stripper Name Role Phone Caitlyn Bowie MD Primary Care Provider +1- [phone] Encounter Details Date Type Department Care Team (Late st Contact Info) Description 09/23/2021 Scanned Document INTERFACE DEFAULT [address] [place] [address] System, Provider Not In Social History Tobacco [...] [facility] 240 [facility] Building [address] [place], [place] [address] Ronald Mills MD [address] [place] [address] [address] [place] [address] documented as of this encounter [...] documented as of this encounter Care Teams Sod Stripper Relationship Specialty Start Date End Date Caitlyn Bowie MD [address] [address] PCP - General Internal Medicine 05/06/21 documented as of this encounter
--- OUTSIDE RECORDS SUMMARY | 2025-04-09 11:54 | XMS_ITS | Encounter Summary ---
Author Organization [facility] and [facility] Address [address] [place] [address] Care Team Providers Care Dehydration Unit Operator Name Role Phone Caitlyn Bowie MD Primary Care Provider +1- [phone] Encounter Details Date Type Department Care Team (Late st Contact Info) Description 09/09/2021 Scanned Document INTERFACE DEFAULT [address] [place] [address] System, Provider Not In Social History Tobacco [...] [facility] 240 [facility] [address] [place] [address] Ronald Mills MD [address] [place] [address] [address] [place] [address] documented as of this encounter Visit Diagnoses Not on filedocumented in this encounter Additional Health Concerns Infection Onset Date Last Indicated Resolved Time COVID-19 03/05/2022 03/05/2022 03/15/2022 7:18 PM EDT Assessment Noted Time PHQ-9 Depression Total Score: 2 11/07/19 19 2:06 PM EDT documented as of this encounter Care Teams Dehydration Unit Operator Relationship Specialty Start Date End Date Caitlyn Bowie MD [address] [address] PCP - General Internal Medicine 05/06/21 documented as of this encounter
--- OUTSIDE RECORDS SUMMARY | 2025-04-09 11:54 | XMS_ITS | Encounter Summary ---
Author Organization [facility] and [facility] Address [address] [place] [address] Care Team Providers Care Therapist Physical Name Role Phone Caitlyn Bowie MD Primary Care Provider +1- [phone] Encounter Details Date Type Department Care Team (Late st Contact Info) Description 05/27/2021 Telephone [facility] at [address] [address] Ronald Mills MD [address] [place] [address] Social History Tobacco Use Types Packs/Day [...] [facility] 240 [facility] [address] [place], [place] [address] Ronald Mills MD 240 [facility] [address] [place] [address] documented as of this encounter Visit Diagnoses Not on filedocumented in this encounter Additional Health Concerns Infection Onset Date Last Indicated Resolved Time COVID-19 03/05/2022 03/05/2022 03/15/2022 7:18 PM EDT Assessment Noted Time PHQ-9 Depression Total Score: 2 11/07/19 19 2:06 PM EDT documented as of this encounter Care Teams Therapist Physical Relationship Specialty Start Date End Date Caitlyn Bowie MD [address] [address] PCP - General Internal Medicine 05/06/21 documented as of this encounter
--- OUTSIDE RECORDS SUMMARY | 2025-04-09 11:54 | XMS_ITS | Encounter Summary ---
Author Organization [facility] and [facility] Address [address] [place] [address] Care Team Providers Care Edge Setter Name Role Phone Caitlyn Bowie MD Primary Care Provider +1- [phone] Reason for Visit * Reason Comments Advice Only mass Encounter Details Date Type Department Care Team (Late st Contact Info) Description 09/06/2021 Telephone [facility] at [address] [phone] Ronald Mills MD [address] [place] [address] Advice Only (mass) Social History Tobacco [...] at [facility] 240 [facility] Building [address] [place], [place] [phone] Ronald Mills MD 240 [facility] [address] [place] [address] documented as of this encounter Visit Diagnoses Not on filedocumented in this encounter Additional Health Concerns Infection Onset Date Last Indicated Resolved Time COVID-19 03/05/2022 03/05/2022 03/15/2022 7:18 PM EDT Assessment Noted Time PHQ-9 Depression Total Score: 2 11/07/19 19 2:06 PM EDT documented as of this encounter Care Teams Edge Setter Relationship Specialty Start Date End Date Caitlyn Bowie MD [address] [address] PCP - General Internal Medicine 05/06/21 documented as of this encounter
--- OUTSIDE RECORDS SUMMARY | 2025-04-09 11:54 | XMS_ITS | Encounter Summary ---
Author Organization [facility] and [facility] Address 20 [place] [address] Care Team Providers Care Convenience Recycle Center Tech Name Role Phone Caitlyn Bowie MD Primary Care Provider +1- [phone] Encounter Details Date Type Department Care Team (Late st Contact Info) Description 11/26/2019 Scanned Document Cancer [facility] at [address] [address] External, Provider Social History Tobacco Use Types [...] [facility] 240 [facility] Building [address] [place], [place] [phone] Ronald Mills MD [address] [place] [address] [address] [place] [address] documented as of this encounter [...] documented as of this encounter Care Teams Convenience Recycle Center Tech Relationship Specialty Start Date End Date Caitlyn Bowie MD 3400 [facility] 1 [place] [address] PCP - General Internal Medicine 05/06/21 Henry Kelly MD Pulmonary Department 175 [facility], [address] [place] [address] Physician Pulmonary Disease 09/06/17 06/22/20 documented as of this encounter
--- OUTSIDE RECORDS SUMMARY | 2025-04-09 11:54 | XMS_ITS | Encounter Summary ---
Author Organization [facility] and [facility] Address [address] [place] [address] Care Team Providers Care Water Hauler Name Role Phone Caitlyn Bowie MD Primary Care Provider +1- [phone] Encounter Details Date Type Department Care Team (Late st Contact Info) Description 04/27/2021 Scanned Document INTERFACE DEFAULT [address] [place] [address] System, Provider Not In Social History Tobacco [...] [facility] 240 [facility] Building [address] [place] [address] Ronald Mills MD [address] [place] [address] [address] [place] [address] documented as of this encounter [...] as of this encounter Care Teams Water Hauler Relationship Specialty Start Date End Date Caitlyn Bowie MD [address] [address] PCP - General Internal Medicine 05/06/21 documented as of this encounter
--- OUTSIDE RECORDS SUMMARY | 2025-04-09 11:54 | XMS_ITS | Encounter Summary ---
Author Organization [facility] and [facility] Address [address] [place] [address] Care Team Providers Care Loom Setter Name Role Phone Caitlyn Bowie MD Primary Care Provider +1- [phone] Encounter Details Date Type Department Care Team (Late st Contact Info) Description 07/12/2019 Scanned Document Onco-Oncology Program at [address] [place] [address] Norma Renee MD [address] [place] [address] 2 [place] [address] Social History Tobacco Use Types [...] PM EDT Telemedicine Cancer Center at [address] [place], [place] [phone] Ronald Mills MD 240 [facility] A1 [place] [address] documented as of this encounter Visit Diagnoses Not on filedocumented in this encounter Additional Health Concerns Infection Onset Date Last Indicated Resolved Time COVID-19 03/05/2022 03/05/2022 03/15/2022 7:18 PM EDT Assessment Noted Time PHQ-9 Depression Total Score: 2 11/07/19 19 2:06 PM EDT documented as of this encounter Care Teams Loom Setter Relationship Specialty Start Date End Date Caitlyn Bowie MD 3400 [facility] 1 [place] [address] PCP - General Internal Medicine 05/06/21 Henry Kelly MD Pulmonary Department 175 [facility], [address] [place] [address] Physician Pulmonary Disease 09/06/17 06/22/20 documented as of this encounter
--- OUTSIDE RECORDS SUMMARY | 2025-04-09 11:54 | XMS_ITS | Encounter Summary ---
Author Organization [facility] and [facility] Address 20 [place] [address] Care Team Providers Care Product Assembler Name Role Phone Caitlyn Bowie MD Primary Care Provider +1- [phone] Encounter Details Date Type Department Care Team (Late st Contact Info) Description 01/28/2013 Scanned Document Thoracic Oncology Program at [address] [address] Solo Henry MD [address] [place] [phone] Social History Tobacco Use Types Packs/Day [...] [facility] [address] [facility] Building [address] [place], [place] [address] Ronald Mills MD 240 [facility] Max [address] [place] [address] documented as of this encounter Visit Diagnoses Not on filedocumented in this encounter Additional Health Concerns Infection Onset Date Last Indicated Resolved Time COVID-19 03/05/2022 03/05/2022 03/15/2022 7:18 PM EDT documented as of this encounter Care Teams Product Assembler Relationship Specialty Start Date End Date Caitlyn Bowie MD 3400 [facility] Max 1 [place] [address] PCP - General Internal Medicine 05/06/21 Henry Kelly MD Pulmonary Department 175 [facility], [address] [place] [address] Physician Pulmonary Disease 09/06/17 06/22/20 documented as of this encounter
--- OUTSIDE RECORDS SUMMARY | 2025-04-09 11:55 | XMS_ITS | Encounter Summary ---
Author Organization [facility] and [facility] Address [address] [place] [address] Care Team Providers Care Brick Washer Name Role Phone Caitlyn Bowie MD Primary Care Provider +1- [phone] Encounter Details Date Type Department Care Team (Late st Contact Info) Description 05/17/2023 Scanned Document INTERFACE DEFAULT [address] [place] [address] System, Provider Not In Social History Tobacco [...] [facility] 240 [facility] Building [address] [place], [place] [phone] Ronald Mills MD [address] [place] [address] [address] [place] [address] documented as of this encounter [...] as of this encounter Care Teams Brick Washer Relationship Specialty Start Date End Date Caitlyn Bowie MD [address] [address] PCP - General Internal Medicine 05/06/21 documented as of this encounter
--- OUTSIDE RECORDS SUMMARY | 2025-04-09 11:55 | XMS_ITS | Encounter Summary ---
Author Organization [facility] and [facility] Address [address] [place] [address] Care Team Providers Care Cancer Program Coordinator Name Role Phone Caitlyn Bowie MD Primary Care Provider +1- [phone] Encounter Details Date Type Department Care Team (Late st Contact Info) Description 06/23/2022 Scanned Document INTERFACE DEFAULT [address] [place] [address] System, Provider Not In Social History Tobacco [...] Telemedicine [facility] at [facility] 240 [facility] Building [address] [place] [address] Ronald Mills MD [address] [place] [address] [address] [place] [address] documented as of this encounter Visit Diagnoses Not on filedocumented in this encounter Additional Health Concerns Assessment Noted Time PHQ-9 Depression Total Score: 2 11/07/19 19 2:06 PM EDT documented as of this encounter Care Teams Cancer Program Coordinator Relationship Specialty Start Date End Date Caitlyn Bowie MD [address] [address] PCP - General Internal Medicine 05/06/21 documented as of this encounter
--- OUTSIDE RECORDS SUMMARY | 2025-04-09 11:55 | XMS_ITS | Encounter Summary ---
Author Organization [facility] and [facility] Address [address] [place] [address] Care Team Providers Care Evp Operations Name Role Phone Caitlyn Bowie MD Primary Care Provider +1- [phone] Encounter Details Date Type Department Care Team (Late st Contact Info) Description 12/04/2018 Scanned Document [facility] Health Information Management [address] [place] [address] External, Provider Social History Tobacco Use Types [...] [facility] 240 [facility] Building [address] [place], [place] [phone] Ronald Mills MD 240 [facility] A1 [place] [address] documented as of this encounter Visit Diagnoses Not on filedocumented in this encounter Additional Health Concerns Infection Onset Date Last Indicated Resolved Time COVID-19 03/05/2022 03/05/2022 03/15/2022 7:18 PM EDT Assessment Noted Time PHQ-9 Depression Total Score: 2 11/07/19 19 2:06 PM EDT documented as of this encounter Care Teams Evp Operations Relationship Specialty Start Date End Date Caitlyn Bowie MD [address] [facility] Max 1 [place] [address] PCP - General Internal Medicine 05/06/21 Henry Kelly MD Pulmonary Department 175 [facility], [address] [place] [address] Physician Pulmonary Disease 09/06/17 06/22/20 documented as of this encounter
--- OUTSIDE RECORDS SUMMARY | 2025-04-09 11:55 | XMS_ITS | Encounter Summary ---
Author Organization [facility] Address [address] [place] [address] Care Team Providers Care Electrician Elevator Maintenance Name Role Phone Caitlyn Bowie MD Primary Care Provider +1- [phone] Encounter Details Date Type Department Care Team (Late st Contact Info) Description 06/24/2022 Scanned Document INTERFACE DEFAULT [address] [place] [address] System, Provider Not In Social History Tobacco [...] [facility] 240 [facility] Building [address] [place], [place] [phone] Ronald Mills MD [address] [place] [address] [address] [place] [address] documented as of this encounter [...] as of this encounter Care Teams Electrician Elevator Maintenance Relationship Specialty Start Date End Date Caitlyn Bowie MD [address] [address] PCP - General Internal Medicine 05/06/21 documented as of this encounter
--- OUTSIDE RECORDS SUMMARY | 2025-04-09 11:55 | XMS_ITS | Encounter Summary ---
Author Organization [facility] and [facility] Address [address] [place] [address] Care Team Providers Care Tester Food Products Name Role Phone Caitlyn Bowie MD Primary Care Provider +1- [phone] Encounter Details Date Type Department Care Team (Late st Contact Info) Description 06/28/2022 Scanned Document INTERFACE DEFAULT [address] [place] [address] System, Provider Not In Social History Tobacco [...] [facility] [address] [facility] Building [address] [place], [place] [address] Ronald Mills MD [address] [place] [address] [address] [place] [address] documented as of this encounter [...] as of this encounter Care Teams Tester Food Products Relationship Specialty Start Date End Date Caitlyn Bowie MD [address] [address] PCP - General Internal Medicine 05/06/21 documented as of this encounter
--- OUTSIDE RECORDS SUMMARY | 2025-04-09 11:55 | XMS_ITS | Encounter Summary ---
Author Organization [facility] and [facility] Address [address] [place] [address] Care Team Providers Care Bullard Machine Operator Name Role Phone Caitlyn Bowie MD Primary Care Provider +1- [phone] Encounter Details Date Type Department Care Team (Late st Contact Info) Description 09/09/2015 Scanned Document [facility] Health Information Management [address] [place] [address] External, Provider Social History Tobacco Use Types [...] [facility] 240 [facility] Building [address] [place], [place] [phone] Ronald Mills MD 240 [facility] Max [address] [place] [address] documented as of this encounter Procedures Procedure Name Priority Date/Time Associated Diagnosis Comments LAB SCAN Routine 09/09/2015 documented in this encounter Results * Lab Scan (09/09/2015) Blood specimen (specimen) us Provider External LAB BLOOD ORDERABLES Final Res ult [facility] documented in this encounter Visit Diagnoses Not on filedocumented in this encounter Additional Health Concerns Infection Onset Date Last Indicated Resolved Time COVID-19 03/05/2022 03/05/2022 03/15/2022 7:18 PM EDT documented as of this encounter Care Teams Bullard Machine Operator Relationship Specialty Start Date End Date Caitlyn Bowie MD 3400 [facility] 1 [place] [address] PCP - General Internal Medicine 05/06/21 Henry Kelly MD Pulmonary Department 175 [facility], [address] [place] [address] Physician Pulmonary Disease 09/06/17 06/22/20 documented as of this encounter
--- OUTSIDE RECORDS SUMMARY | 2025-04-09 11:55 | XMS_ITS | Encounter Summary ---
Author Organization [facility] Address [address] [place] [address] Care Team Providers Care Regional Ehs Manager Name Role Phone Caitlyn Bowie MD Primary Care Provider +1- [phone] Encounter Details Date Type Department Care Team (Late st Contact Info) Description 04/19/2023 Scanned Document INTERFACE DEFAULT [address] [place] [address] System, Provider Not In Social History Tobacco [...] [facility] Building [address] [place], [place] [address] Ronald Mills MD [address] [place] [address] [address] [place] [address] documented as of this encounter [...] as of this encounter Care Teams Regional Ehs Manager Relationship Specialty Start Date End Date Caitlyn Bowie MD [address] [address] PCP - General Internal Medicine 05/06/21 documented as of this encounter
--- OUTSIDE RECORDS SUMMARY | 2025-04-09 11:55 | XMS_ITS | Encounter Summary ---
Author Organization [facility] and [facility] Address 20 [place] [address] Care Team Providers Care Head Of Human Resources Name Role Phone Caitlyn Bowie MD Primary Care Provider +1- [phone] Encounter Details Date Type Department Care Team (Late st Contact Info) Description 05/10/2022 Scanned Document Cardiovascular Medicine at [address] [place], [place] [address] Norma Renee MD [address] [place] [phone] Social History Tobacco Use Types Packs/Day Years [...] PM EDT Telemedicine Cancer Center at [address] [place], [place] [address] Ronald Mills MD [address] [place] [address] [address] [place] [address] documented as of this encounter Visit Diagnoses Not on filedocumented in this encounter Additional Health Concerns Assessment Noted Time PHQ-9 Depression Total Score: 2 11/07/19 19 2:06 PM EDT documented as of this encounter Care Teams Head Of Human Resources Relationship Specialty Start Date End Date Caitlyn Bowie MD [address] [address] PCP - General Internal Medicine 05/06/21 documented as of this encounter
--- OUTSIDE RECORDS SUMMARY | 2025-04-09 11:55 | XMS_ITS | Encounter Summary ---
Author Organization [facility] Address 20 [place] [address] Care Team Providers Care Parcel Post Weigher Name Role Phone Caitlyn Bowie MD Primary Care Provider +1- [phone] Encounter Details Date Type Department Care Team (Late st Contact Info) Description 04/26/2017 Scanned Document Cardiovascular Medicine at [address] [place] [address] System, Provider Not In Social History Tobacco [...] [facility] 240 [facility] Building [address] [place], [place] [address] Ronald Mills MD 240 [facility] A1 [place] [address] documented as of this encounter [...] documented as of this encounter Care Teams Parcel Post Weigher Relationship Specialty Start Date End Date Caitlyn Bowie MD 3400 [facility] 1 [place] [address] PCP - General Internal Medicine 05/06/21 Henry Kelly MD Pulmonary Department 175 [facility], [address] [place] [address] Physician Pulmonary Disease 09/06/17 06/22/20 documented as of this encounter
--- OUTSIDE RECORDS SUMMARY | 2025-04-09 11:55 | XMS_ITS | Encounter Summary ---
Author Organization [facility] and [facility] Address [address] [place] [place] [address] Care Team Providers Care Store Facility Technician Name Role Phone Caitlyn Bowie MD Primary Care Provider +1- [phone] Encounter Details Date Type Department Care Team (Late st Contact Info) Description 12/23/2022 Scanned Document INTERFACE DEFAULT [address] [place] [address] System, Provider Not In Social History Tobacco [...] [facility] 240 [facility] Building [address] [place] [address] Ronald Mills MD [address] [place] [address] [address]1 [place] [address] documented as of this encounter Visit Diagnoses Not on filedocumented in this encounter Additional Health Concerns Assessment Noted Time PHQ-9 Depression Total Score: 2 11/07/19 19 2:06 PM EDT documented as of this encounter Care Teams Store Facility Technician Relationship Specialty Start Date End Date Caitlyn Bowie MD [address] [address] PCP - General Internal Medicine 05/06/21 documented as of this encounter
--- OUTSIDE RECORDS SUMMARY | 2025-04-09 11:55 | XMS_ITS | Encounter Summary ---
Author Organization [facility] and [facility] Address [address] [place] [address] Care Team Providers Care Food Specialist Name Role Phone Caitlyn Bowie MD Primary Care Provider +1- [phone] Encounter Details Date Type Department Care Team (Late st Contact Info) Description 01/02/2024 Scanned Document INTERFACE DEFAULT [address] [place] [address] System, Provider Not In Social History Tobacco [...] [facility] 240 [facility] Building [address] [place], [place] [phone] Ronald Mills MD [address] [place] [address] [address] [place] [address] documented as of this encounter [...] as of this encounter Care Teams Food Specialist Relationship Specialty Start Date End Date Caitlyn Bowie MD [address] [address] PCP - General Internal Medicine 05/06/21 documented as of this encounter
--- OUTSIDE RECORDS SUMMARY | 2025-04-09 11:55 | XMS_ITS | Encounter Summary ---
Author Organization [facility] and [facility] Address [address] [place] [address] Care Team Providers Care Record Press Operator Name Role Phone Caitlyn Bowie MD Primary Care Provider +1- [phone] Encounter Details Date Type Department Care Team (Late st Contact Info) Description 12/06/2018 Scanned Document [facility] Health Information Management [address] [place] [address] External, Provider Social History Tobacco Use Types [...] [facility] 240 [facility] Building [address] [place], [place] [address] Ronald Mills MD [address] [place] [address] [address]1 [place] [address] documented as of this encounter [...] as of this encounter Care Teams Record Press Operator Relationship Specialty Start Date End Date Caitlyn Bowie MD 3400 [facility] 1 [place] [address] PCP - General Internal Medicine 05/06/21 Henry Kelly MD Pulmonary Department 175 [facility], [address] [place] [address] Physician Pulmonary Disease 09/06/17 06/22/20 documented as of this encounter
--- OUTSIDE RECORDS SUMMARY | 2025-04-09 11:55 | XMS_ITS | Encounter Summary ---
Author Organization [facility] and [facility] Address 20 [place] [address] Care Team Providers Care Customer Business Manager Name Role Phone Caitlyn Bowie MD Primary Care Provider +1- [phone] Encounter Details Date Type Department Care Team (Late st Contact Info) Description 09/24/2015 Scanned Document Digestive Diseases at 40 [facility] 40 [facility] 1A [place] [address] Kevin Espinoza MD [address] [place] [address] Social History Tobacco Use Types Packs/Day [...] 4:00 PM EDT Telemedicine Cancer Center at [address] [place], [place] [phone] Ronald Mills MD [address] [place] [address] [address]1 [place] [address] documented as of this encounter Visit Diagnoses Not on filedocumented in this encounter Additional Health Concerns Infection Onset Date Last Indicated Resolved Time COVID-19 03/05/2022 03/05/2022 03/15/2022 7:18 PM EDT documented as of this encounter Care Teams Customer Business Manager Relationship Specialty Start Date End Date Caitlyn Bowie MD 3400 [facility] 1 [place] [address] PCP - General Internal Medicine 05/06/21 Henry Kelly MD Pulmonary Department 175 [facility], [address] [place] [address] Physician Pulmonary Disease 09/06/17 06/22/20 documented as of this encounter
--- OUTSIDE RECORDS SUMMARY | 2025-04-09 11:55 | XMS_ITS | Encounter Summary ---
Author Organization [facility] and [facility] Address [address] [place] [address] Care Team Providers Care Curriculum Consultant Name Role Phone Caitlyn Bowie MD Primary Care Provider +1- [phone] Encounter Details Date Type Department Care Team (Late st Contact Info) Description 04/13/2023 Scanned Document INTERFACE DEFAULT [address] [place] [phone] System, Provider Not In Social History Tobacco [...] at [facility] 240 [facility] Building [address] [place] [address] Ronald Mills MD [address] [place] [address] [address] [place] [address] documented as of this encounter [...] as of this encounter Care Teams Curriculum Consultant Relationship Specialty Start Date End Date Caitlyn Bowie MD [address] [address] PCP - General Internal Medicine 05/06/21 documented as of this encounter
--- OUTSIDE RECORDS SUMMARY | 2025-04-09 11:55 | XMS_ITS | Encounter Summary ---
Author Organization [facility] and [facility] Address [address] [place] [address] Care Team Providers Care Manager Utility Name Role Phone Caitlyn Bowie MD Primary Care Provider +1- [phone] Encounter Details Date Type Department Care Team (Late st Contact Info) Description 06/08/2022 Scanned Document INTERFACE DEFAULT [address] [place] [address] System, Provider Not In Social History Tobacco [...] [facility] 240 [facility] Building [address] [place], [place] [phone] Ronald Mills MD [address] [place] [address] [address]1 [place] [address] documented as of this encounter [...] as of this encounter Care Teams Manager Utility Relationship Specialty Start Date End Date Caitlyn Bowie MD [address] [address] PCP - General Internal Medicine 05/06/21 documented as of this encounter
--- OUTSIDE RECORDS SUMMARY | 2025-04-09 11:55 | XMS_ITS | Encounter Summary ---
Author Organization [facility] and [facility] Address 20 [place] [address] Care Team Providers Care Quick Technician Name Role Phone Caitlyn Bowie MD Primary Care Provider +1- [phone] Encounter Details Date Type Department Care Team (Late st Contact Info) Description 08/23/2022 Abstract Cardiovascular Medicine at [address] 2nd [place] [address] Norma Renee MD [address] [place] [phone] Social History Tobacco Use Types Packs/Day Years [...] PM EDT Telemedicine Cancer Center at [address] [place] [address] Ronald Mills MD [address] [place] [address] [address] [place] [address] documented as of this encounter Visit Diagnoses Not on filedocumented in this encounter Additional Health Concerns Assessment Noted Time PHQ-9 Depression Total Score: 2 11/07/19 19 2:06 PM EDT documented as of this encounter Care Teams Quick Technician Relationship Specialty Start Date End Date Caitlyn Bowie MD [address] [address] PCP - General Internal Medicine 05/06/21 documented as of this encounter
--- OUTSIDE RECORDS SUMMARY | 2025-04-09 11:55 | XMS_ITS | Encounter Summary ---
Author Organization [facility] and [facility] Address [address] [place] [address] Care Team Providers Care Senior Cyber Security Analyst Name Role Phone Caitlyn Bowie MD Primary Care Provider +1- [phone] Encounter Details Date Type Department Care Team (Late st Contact Info) Description 09/09/2015 Scanned Document [facility] Health Information Management [address] [place] [address] External, Provider Social History Tobacco Use Types [...] Center at [facility] 240 [facility] Building [address] [place], [place] [phone] Ronald Mills MD 240 [facility] [address] [place] [address] documented as of this encounter Procedures Procedure Name Priority Date/Time Associated Diagnosis Comments LAB SCAN Routine 09/09/2015 documented in this encounter Results * Lab Scan (09/09/2015) Blood specimen (specimen) us Provider External LAB BLOOD ORDERABLES Final Res ult Performing Organization Address City/State/[facility] Co de Phone Number [facility] documented in this encounter Visit Diagnoses Not on filedocumented in this encounter Additional Health Concerns Infection Onset Date Last Indicated Resolved Time COVID-19 03/05/2022 03/05/2022 03/15/2022 7:18 PM EDT documented as of this encounter Care Teams Senior Cyber Security Analyst Relationship Specialty Start Date End Date Caitlyn Bowie MD 3400 [facility] 1 [place] [address] PCP - General Internal Medicine 05/06/21 Henry Kelly MD Pulmonary Department 175 [facility], [address] [place] [address] Physician Pulmonary Disease 09/06/17 06/22/20 documented as of this encounter
--- OUTSIDE RECORDS SUMMARY | 2025-04-09 11:55 | XMS_ITS | Encounter Summary ---
Author Organization [facility] and [facility] Address [address] [place] [address] Care Team Providers Care Clinical Nutritionist Name Role Phone Caitlyn Bowie MD Primary Care Provider +1- [phone] Encounter Details Date Type Department Care Team (Late st Contact Info) Description 04/20/2023 Scanned Document INTERFACE DEFAULT [address] [place] [address] System, Provider Not In Social History Tobacco [...] [facility] Center at [facility] 240 [facility] Building [address] [place], [place] [phone] Ronald Mills MD [address] [place] [address] [address] [place] [address] documented as of this encounter [...] as of this encounter Care Teams Clinical Nutritionist Relationship Specialty Start Date End Date Caitlyn Bowie MD [address] [address] PCP - General Internal Medicine 05/06/21 documented as of this encounter
--- OUTSIDE RECORDS SUMMARY | 2025-04-09 11:55 | XMS_ITS | Encounter Summary ---
Author Organization [facility] and [facility] Address [address] [place] [address] Care Team Providers Care Industrial Robotics Mechanic Name Role Phone Caitlyn Bowie MD Primary Care Provider +1- [phone] Encounter Details Date Type Department Care Team (Late st Contact Info) Description 09/01/2023 Scanned Document INTERFACE DEFAULT [address] [place] [address] System, Provider Not In Social History Tobacco [...] Center at [facility] 240 [facility] Building [address] [place] [address] Ronald Mills MD [address] [place] [address] [address]1 [place] [address] documented as of this encounter Visit Diagnoses Not on filedocumented in this encounter Additional Health Concerns Assessment Noted Time PHQ-9 Depression Total Score: 2 11/07/19 19 2:06 PM EDT documented as of this encounter Care Teams Industrial Robotics Mechanic Relationship Specialty Start Date End Date Caitlyn Bowie MD [address] [address] PCP - General Internal Medicine 05/06/21 documented as of this encounter
--- OUTSIDE RECORDS SUMMARY | 2025-04-09 11:55 | XMS_ITS | Encounter Summary ---
Author Organization [facility] and [facility] Address 20 [place] [address] Care Team Providers Care Conduit Installer Name Role Phone Caitlyn Bowie MD Primary Care Provider +1- [phone] Encounter Details Date Type Department Care Team (Late st Contact Info) Description 01/31/2023 Abstract [facility] Melanoma Surgery 35 [facility]8 [place] [address] Shilpi Romero, AVELINO Social History Tobacco Use [...] [facility] Building [address] [place] [address] Ronald Mills MD [address] [place] [address] [address]1 [place] [address] documented as of this encounter Visit Diagnoses Not on filedocumented in this encounter Additional Health Concerns Assessment Noted Time PHQ-9 Depression Total Score: 2 11/07/19 19 2:06 PM EDT documented as of this encounter Care Teams Conduit Installer Relationship Specialty Start Date End Date Caitlyn Bowie MD [address] [address] PCP - General Internal Medicine 05/06/21 documented as of this encounter
--- OUTSIDE RECORDS SUMMARY | 2025-04-09 11:55 | XMS_ITS | Encounter Summary ---
Author Organization [facility] and [facility] Address [address] [place] [address] Care Team Providers Care Ug Designer Name Role Phone Caitlyn Bowie MD Primary Care Provider +1- [phone] Encounter Details Date Type Department Care Team (Late st Contact Info) Description 06/27/2022 Scanned Document INTERFACE DEFAULT [address] [place] [address] System, Provider Not In Social History Tobacco [...] [facility] 240 [facility] Building [address] [place], [place] [address] Ronald Mills MD [address] [place] [address] [address] [place] [address] documented as of this encounter [...] documented as of this encounter Care Teams Ug Designer Relationship Specialty Start Date End Date Caitlyn Bowie MD [facility] [address] [address] PCP - General Internal Medicine 05/06/21 documented as of this encounter
--- OUTSIDE RECORDS SUMMARY | 2025-04-09 11:55 | XMS_ITS | Encounter Summary ---
Author Organization [facility] and [facility] Address [address] [place] [address] Care Team Providers Care Regulatory Administrator Name Role Phone Caitlyn Bowie MD Primary Care Provider +1- [phone] Encounter Details Date Type Department Care Team (Late st Contact Info) Description 07/01/2019 Scanned Document Onco-Oncology Program at [address] [place] [address] Norma Renee MD [address] [place] [address] 2 [place] [phone] Social History Tobacco Use Types Packs/Day Years [...] PM EDT Telemedicine Cancer Center at [address] [place], [place] [phone] Ronald Mills MD 240 [facility] A1 [place] [address] documented as of this encounter Visit Diagnoses Not on filedocumented in this encounter Additional Health Concerns Infection Onset Date Last Indicated Resolved Time COVID-19 03/05/2022 03/05/2022 03/15/2022 7:18 PM EDT Assessment Noted Time PHQ-9 Depression Total Score: 2 11/07/19 19 2:06 PM EDT documented as of this encounter Care Teams Regulatory Administrator Relationship Specialty Start Date End Date Caitlyn Bowie MD 3400 [facility] 1 [place] [address] PCP - General Internal Medicine 05/06/21 Henry Kelly MD Pulmonary Department 175 [facility], [address] [place] [address] Physician Pulmonary Disease 09/06/17 06/22/20 documented as of this encounter
--- OUTSIDE RECORDS SUMMARY | 2025-04-09 11:55 | XMS_ITS | Encounter Summary ---
Author Organization [facility] and [facility] Address 20 [place] [address] Care Team Providers Care Can Crimper Name Role Phone Caitlyn Bowie MD Primary Care Provider +1- [phone] Encounter Details Date Type Department Care Team (Late st Contact Info) Description 07/08/2022 Scanned Document Cardiovascular Medicine at [address] [place] [place], [place] [address] Norma Renee MD [address] [place] [phone] Social History Tobacco Use Types Packs/Day Years [...] PM EDT Telemedicine Cancer Center at [address] [place], [place] [address] Ronald Mills MD [address] [place] [address] [address]1 [place] [address] documented as of this encounter Visit Diagnoses Not on filedocumented in this encounter Additional Health Concerns Assessment Noted Time PHQ-9 Depression Total Score: 2 11/07/19 19 2:06 PM EDT documented as of this encounter Care Teams Can Crimper Relationship Specialty Start Date End Date Caitlyn Bowie MD [address] [address] PCP - General Internal Medicine 05/06/21 documented as of this encounter
--- OUTSIDE RECORDS SUMMARY | 2025-04-09 11:55 | XMS_ITS | Encounter Summary ---
Author Organization [facility] and [facility] Address [address] [place] [address] Care Team Providers Care Machine Cloth Trimmer Name Role Phone Caitlyn Bowie MD Primary Care Provider +1- [phone] Encounter Details Date Type Department Care Team (Late st Contact Info) Description 06/27/2019 Scanned Document Onco-Oncology Program at [address] [place] [address] Norma Renee MD [address] [place] [address] 2 [place] [address] Social History Tobacco Use Types [...] PM EDT Telemedicine Cancer Center at [address] [place], [place] [phone] Ronald Mills MD 240 [facility] A1 [place] [address] documented as of this encounter Visit Diagnoses Not on filedocumented in this encounter Additional Health Concerns Infection Onset Date Last Indicated Resolved Time COVID-19 03/05/2022 03/05/2022 03/15/2022 7:18 PM EDT Assessment Noted Time PHQ-9 Depression Total Score: 2 11/07/19 19 2:06 PM EDT documented as of this encounter Care Teams Machine Cloth Trimmer Relationship Specialty Start Date End Date Caitlyn Bowie MD 3400 [facility] 1 [place] [address] PCP - General Internal Medicine 05/06/21 Henry Kelly MD Pulmonary Department 175 [facility], [address] [place] [address] Physician Pulmonary Disease 09/06/17 06/22/20 documented as of this encounter
--- OUTSIDE RECORDS SUMMARY | 2025-04-09 11:55 | XMS_ITS | Encounter Summary ---
Author Organization [facility] and [facility] Address [address] [place] [address] Care Team Providers Care Remote Encoding Operations Supervisor Name Role Phone Caitlyn Bowie MD Primary Care Provider +1- [phone] Encounter Details Date Type Department Care Team (Late st Contact Info) Description 05/16/2023 Scanned Document INTERFACE DEFAULT [address] [place] [address] System, Provider Not In Social History Tobacco [...] at [facility] 240 [facility] Building [address] [place], [place] [address] Ronald Mills MD [address] [place] [address] [address] [place] [address] documented as of this encounter [...] as of this encounter Care Teams Remote Encoding Operations Supervisor Relationship Specialty Start Date End Date Caitlyn Bowie MD [address] [address] PCP - General Internal Medicine 05/06/21 documented as of this encounter
--- OUTSIDE RECORDS SUMMARY | 2025-04-09 11:55 | XMS_ITS | Encounter Summary ---
Author Organization [facility] and [facility] Address [address] [place] [address] Care Team Providers Care Sound Recordist Name Role Phone Caitlyn Bowie MD Primary Care Provider +1- [phone] Encounter Details Date Type Department Care Team (Late st Contact Info) Description 10/23/2018 Scanned Document [facility] Health Information Management [address] [place] [address] External, Provider Social History Tobacco Use Types [...] [facility] at [facility] 240 [facility] Building [address] [place], [place] [phone] Ronald Mills MD 240 [facility] A1 [place] [address] documented as of this encounter Visit Diagnoses Not on filedocumented in this encounter Additional Health Concerns Infection Onset Date Last Indicated Resolved Time COVID-19 03/05/2022 03/05/2022 03/15/2022 7:18 PM EDT documented as of this encounter Care Teams Sound Recordist Relationship Specialty Start Date End Date Caitlyn Bowie MD 3400 [facility] 1 [place] [address] PCP - General Internal Medicine 05/06/21 Henry Kelly MD Pulmonary Department 175 [facility], [address] [place] [address] Physician Pulmonary Disease 09/06/17 06/22/20 documented as of this encounter
--- OUTSIDE RECORDS SUMMARY | 2025-04-09 11:55 | XMS_ITS | Encounter Summary ---
Author Organization [facility] and [facility] Address [address] [place] [address] Care Team Providers Care Campaign Management Senior Manager Name Role Phone Caitlyn Bowie MD Primary Care Provider +1- [phone] Encounter Details Date Type Department Care Team (Late st Contact Info) Description 09/09/2015 Scanned Document [facility] Health Information Management [address] [place] [address] External, Provider Social History Tobacco Use Types [...] Cancer Center at [facility] 240 [facility] Building [address] [place], [place] [phone] Ronald Mills MD 240 [facility] Max [address] [place] [address] documented as of this encounter Procedures Procedure Name Priority Date/Time Associated Diagnosis Comments LAB SCAN Routine 09/09/2015 documented in this encounter Results * Lab Scan (09/09/2015) Blood specimen (specimen) us Provider External LAB BLOOD ORDERABLES Final Res ult [facility] documented in this encounter Visit Diagnoses Not on filedocumented in this encounter Additional Health Concerns Infection Onset Date Last Indicated Resolved Time COVID-19 03/05/2022 03/05/2022 03/15/2022 7:18 PM EDT documented as of this encounter Care Teams Campaign Management Senior Manager Relationship Specialty Start Date End Date Caitlyn Bowie MD 3400 [facility] 1 [place] [address] PCP - General Internal Medicine 05/06/21 Henry Kelly MD Pulmonary Department [address] [facility], [address] [place] [address] Physician Pulmonary Disease 09/06/17 06/22/20 documented as of this encounter
--- OUTSIDE RECORDS SUMMARY | 2025-04-09 11:55 | XMS_ITS | Encounter Summary ---
Author Organization [facility] and [facility] Address [address] [place] [address] Care Team Providers Care Solvent Process Extractor Operator Name Role Phone Caitlyn Bowie MD Primary Care Provider +1- [phone] Encounter Details Date Type Department Care Team (Late st Contact Info) Description 03/01/2017 Scanned Document Onco-Oncology Program at [address] [place] [address] Norma Renee MD [address] [place] [address] 2 [place] [phone] Social History Tobacco Use Types Packs/Day Years [...] PM EDT Telemedicine Cancer Center at [address] [place] [address] Ronald Mills MD 240 [facility] A1 [place] [address] documented as of this encounter Visit Diagnoses Not on filedocumented in this encounter Additional Health Concerns Infection Onset Date Last Indicated Resolved Time COVID-19 03/05/2022 03/05/2022 03/15/2022 7:18 PM EDT documented as of this encounter Care Teams Solvent Process Extractor Operator Relationship Specialty Start Date End Date Caitlyn oBwie MD 3400 [facility] 1 [place] [address] PCP - General Internal Medicine 05/06/21 Henry Kelly MD Pulmonary Department 175 [facility], [address] [place] [address] Physician Pulmonary Disease 09/06/17 06/22/20 documented as of this encounter
--- OUTSIDE RECORDS SUMMARY | 2025-04-09 11:55 | XMS_ITS | Encounter Summary ---
Author Organization [facility] and [facility] Address 20 [place] [address] Care Team Providers Care Cement And Concrete Plant Worker Name Role Phone Caitlyn Bowie MD Primary Care Provider +1- [phone] Encounter Details Date Type Department Care Team (Late st Contact Info) Description 04/26/2017 Scanned Document Cardiovascular Medicine at [address] [place] [address] Norma Renee MD [address] [place] [phone] Social History Tobacco Use Types Packs/Day Years [...] PM EDT Telemedicine Cancer Center at [address] [place], [place] [phone] Ronald Mills MD 240 [facility] A1 [place] [address] documented as of this encounter Visit Diagnoses Not on filedocumented in this encounter Additional Health Concerns Infection Onset Date Last Indicated Resolved Time COVID-19 03/05/2022 03/05/2022 03/15/2022 7:18 PM EDT documented as of this encounter Care Teams Cement And Concrete Plant Worker Relationship Specialty Start Date End Date Caitlyn Bowie MD 3400 [facility] Max 1 [place] [address] PCP - General Internal Medicine 05/06/21 Henry Kelly MD Pulmonary Department 175 [facility], [address] [place] [address] Physician Pulmonary Disease 09/06/17 06/22/20 documented as of this encounter
--- OUTSIDE RECORDS SUMMARY | 2025-04-09 11:55 | XMS_ITS | Encounter Summary ---
Author Organization [facility] and [facility] Address [address] [place] [address] Care Team Providers Care Glassware Verifier Name Role Phone Caitlyn Bowie MD Primary Care Provider +1- [phone] Encounter Details Date Type Department Care Team (Late st Contact Info) Description 07/06/2021 Scanned Document INTERFACE DEFAULT [address] [place] [address] System, Provider Not In Social History Tobacco [...] [facility] 240 [facility] Building [address] [place] [address] Ronald Mills MD [address] [place] [address] [address]1 [place] [address] documented as of this encounter Visit Diagnoses Not on filedocumented in this encounter Additional Health Concerns Infection Onset Date Last Indicated Resolved Time COVID-19 03/05/2022 03/05/2022 03/15/2022 7:18 PM EDT Assessment Noted Time PHQ-9 Depression Total Score: 2 11/07/19 19 2:06 PM EDT documented as of this encounter Care Teams Glassware Verifier Relationship Specialty Start Date End Date Caitlyn Bowie MD [address] [address] PCP - General Internal Medicine 05/06/21 documented as of this encounter
--- OUTSIDE RECORDS SUMMARY | 2025-04-09 11:55 | XMS_ITS | Encounter Summary ---
Author Organization [facility] Address [address] [place] [address] [address] [place] [address] Phone Care Team Providers Care Fountain Server Name Role Phone Caitlyn Bowie MD Primary Care Provider +1- [phone] Encounter Details Date Type Department Care Team (Late st Contact Info) Description 08/30/2024 Abstract [facility] [address] [facility] [address] [place] [address] Adalgisa Whitney MD [address] [place] [address] [address] [place] [address] Social History Tobacco Use Types [...] 4:00 PM EDT [facility] at [address] [place] [address] Ronald Mills MD [address] [place] [phone] documented as of this encounter Visit Diagnoses Not on filedocumented in this encounter Additional Health Concerns Assessment Noted Time PHQ-9 Depression Total Score: 2 11/07/19 19 2:06 PM EDT documented as of this encounter Care Teams Fountain Server Relationship Specialty Start Date End Date Caitlyn Bowie MD [address] [address] PCP - General Internal Medicine 05/06/21 documented as of this encounter
--- OUTSIDE RECORDS SUMMARY | 2025-04-09 11:55 | XMS_ITS | Encounter Summary ---
Author Organization [facility] Address [address] [place] [address] Care Team Providers Care It Telecom Technician Name Role Phone Caitlyn Bowie MD Primary Care Provider +1- [phone] Encounter Details Date Type Department Care Team (Late st Contact Info) Description 10/24/2022 Scanned Document INTERFACE DEFAULT [address] [place] [address] System, Provider Not In Social History Tobacco [...] Center at [facility] 240 [facility] Building [address] [place], [place] [phone] Ronald Mills MD [address] [place] [address] [address] [place] [address] documented as of this [...] as of this encounter Care Teams It Telecom Technician Relationship Specialty Start Date End Date Caitlyn Bowie MD [facility] [address] [address] PCP - General Internal Medicine 05/06/21 documented as of this encounter
--- OUTSIDE RECORDS SUMMARY | 2025-04-09 11:55 | XMS_ITS | Encounter Summary ---
Author Organization [facility] Address [address] [place] [address] Care Team Providers Care Veterinary Medical Officer Name Role Phone Caitlyn Bowie MD Primary Care Provider +1- [phone] Encounter Details Date Type Department Care Team (Late st Contact Info) Description 08/28/2015 Scanned Document [facility] Health Information Management [address] [place] [address] External, Provider Social History Tobacco Use Types [...] [facility] 240 [facility] Building [address] [place], [place] [phone] Ronald Mills MD 240 [facility] [address] [place] [address] documented as of this encounter Visit Diagnoses Not on filedocumented in this encounter Additional Health Concerns Infection Onset Date Last Indicated Resolved Time COVID-19 03/05/2022 03/05/2022 03/15/2022 7:18 PM EDT documented as of this encounter Care Teams Veterinary Medical Officer Relationship Specialty Start Date End Date Caitlyn Bowie MD 3400 [facility] 1 [place] [address] PCP - General Internal Medicine 05/06/21 Henry Kelly MD Pulmonary Department 175 [facility], [address] [place] [address] Physician Pulmonary Disease 09/06/17 06/22/20 documented as of this encounter
--- OUTSIDE RECORDS SUMMARY | 2025-04-09 11:55 | XMS_ITS | Encounter Summary ---
Author Organization [facility] Address [address] [place] [address] Care Team Providers Care Airline Pilot/First Officer Name Role Phone Caitlyn Bowie MD Primary Care Provider +1- [phone] Encounter Details Date Type Department Care Team (Late st Contact Info) Description 09/28/2015 Scanned Document [facility] Health Information Management [address] [place] [address] External, Provider Social History Tobacco Use Types [...] [facility] Building [address] [place], [place] [id number] Ronald Mills MD 240 [facility] [address] [place] [address] documented as of this encounter Procedures Procedure Name Priority Date/Time Associated Diagnosis Comments LAB SCAN Routine 09/09/2015 documented in this encounter Results * Lab Scan (09/09/2015) Blood specimen (specimen) us Provider External LAB BLOOD ORDERABLES Final Res ult [facility] documented in this encounter Visit Diagnoses Not on filedocumented in this encounter Additional Health Concerns Infection Onset Date Last Indicated Resolved Time COVID-19 03/05/2022 03/05/2022 03/15/2022 7:18 PM EDT documented as of this encounter Care Teams Airline Pilot/First Officer Relationship Specialty Start Date End Date Caitlyn Bowie MD 34[address] [facility] 1 [place] [address] PCP - General Internal Medicine 05/06/21 Henry Kelly MD Pulmonary Department 175 [facility], [address] [place] [address] Physician Pulmonary Disease 09/06/17 06/22/20 documented as of this encounter
--- OUTSIDE RECORDS SUMMARY | 2025-04-09 11:55 | XMS_ITS | Encounter Summary ---
Author Organization [facility] Address [address] [place] [address] Care Team Providers Care Care Associate Name Role Phone Caitlyn Bowie MD Primary Care Provider +1- [phone] Encounter Details Date Type Department Care Team (Late st Contact Info) Description 02/21/2017 Scanned Document [facility] Health Information Management [address] [place] [address] External, Provider Social History Tobacco Use [...] [facility] [address] [facility] Building [address] [place], [place] [phone] Ronald Mills MD 240 [facility] [address] [place] [address] documented as of this encounter [...] as of this encounter Care Teams Care Associate Relationship Specialty Start Date End Date Caitlyn Bowie MD 3400 [facility] Max 1 [place] [address] PCP - General Internal Medicine 05/06/21 Henry Kelly MD Pulmonary Department 175 [facility], [address] [place] [address] Physician Pulmonary Disease 09/06/17 06/22/20 documented as of this encounter
--- OUTSIDE RECORDS SUMMARY | 2025-04-09 11:55 | XMS_ITS | Encounter Summary ---
Author Organization [facility] Address [address] [place] [address] Care Team Providers Care Transportation Manager Name Role Phone Caitlyn Bowie MD Primary Care Provider +1- [phone] Encounter Details Date Type Department Care Team (Late st Contact Info) Description 06/21/2022 Scanned Document INTERFACE DEFAULT [address] [place] [address] System, Provider Not In Social History Tobacco [...] [facility] 240 [facility] Building [address] [place], [place] [id number] Ronald Mills MD [address] [place] [address] [address] [place] [address] documented as of [...] as of this encounter Care Teams Transportation Manager Relationship Specialty Start Date End Date Caitlyn Bowie MD [address] [address] PCP - General Internal Medicine 05/06/21 documented as of this encounter
--- OUTSIDE RECORDS SUMMARY | 2025-04-09 11:55 | XMS_ITS | Encounter Summary ---
Author Organization [facility] and [facility] Address [address] [place] [address] Care Team Providers Care Rotoformer Backtender Name Role Phone Caitlyn Bowie MD Primary Care Provider +1- [phone] Encounter Details Date Type Department Care Team (Late st Contact Info) Description 07/28/2022 Scanned Document [facility] at [address] [place] [address] Norma Renee MD [address] [place] [address] 2 [place] [address] Social History Tobacco Use Types [...] PM EDT Tele[facility]icine Cancer [facility] at [address] [place], [place] [address] Ronald Mills MD 240 [facility] [address] [place] [address] documented as of this encounter Visit Diagnoses Not on filedocumented in this encounter Additional Health Concerns Assessment Noted Time PHQ-9 Depression Total Score: 2 11/07/19 19 2:06 PM EDT documented as of this encounter Care Teams Rotoformer Backtender Relationship Specialty Start Date End Date Caitlyn Bowie MD [address] [address] PCP - General Internal Medicine 05/06/21 documented as of this encounter
--- OUTSIDE RECORDS SUMMARY | 2025-04-09 11:55 | XMS_ITS | Encounter Summary ---
Author Organization [facility] and [facility] Address [address] [place] [address] Care Team Providers Care Information Technology Consultant Name Role Phone Caitlyn Bowie MD Primary Care Provider +1- [phone] Encounter Details Date Type Department Care Team (Late st Contact Info) Description 06/21/2012 Abstract [facility] Neck Cancers Program at [address] [phone] Mikel Lloyd MD [address] [place] [phone] (Fax) Social History Tobacco Use Types Packs/Day [...] [facility] Building [address] [place] [address] Ronald Mills MD 240 [facility] [address] [place] [address] documented as of this encounter Visit Diagnoses Not on filedocumented in this encounter Additional Health Concerns Infection Onset Date Last Indicated Resolved Time COVID-19 03/05/2022 03/05/2022 03/15/2022 7:18 PM EDT documented as of this encounter Care Teams Information Technology Consultant Relationship Specialty Start Date End Date Caitlyn Bowie MD 3400 [facility] 1 [place] [address] PCP - General Internal Medicine 05/06/21 Henry Kelly MD Pulmonary Department [address] [place] [address], [address] [place] [address] Physician Pulmonary Disease 09/06/17 06/22/20 documented as of this encounter
--- OUTSIDE RECORDS SUMMARY | 2025-04-09 11:55 | XMS_ITS | Encounter Summary ---
Author Organization [facility] and [facility] Address [address] [place] [address] Care Team Providers Care Block Cuber Name Role Phone Caitlyn Bowie MD Primary Care Provider +1- [phone] Encounter Details Date Type Department Care Team (Late st Contact Info) Description 06/20/2022 Scanned Document INTERFACE DEFAULT [address] [place] [address] System, Provider Not In Social History Tobacco [...] at [facility] 240 [facility] Building [address] [place], [place] [address] Ronald Mills MD [address] [place] [address] [address] [place] [address] documented as of this encounter [...] as of this encounter Care Teams Block Cuber Relationship Specialty Start Date End Date Caitlyn Bowie MD [facility] [address] [address] PCP - General Internal Medicine 05/06/21 documented as of this encounter
--- OUTSIDE RECORDS SUMMARY | 2025-04-09 11:55 | XMS_ITS | Encounter Summary ---
Author Organization [facility] and [facility] Address [address] [place] [address] Care Team Providers Care Snap Shearer Name Role Phone Caitlyn Bowie MD Primary Care Provider +1- [phone] Encounter Details Date Type Department Care Team (Late st Contact Info) Description 04/27/2017 Scanned Document [facility] Health Information Management [address] [place] [address] External, Provider Social History Tobacco Use Types [...] [facility] 240 [facility] Building [address] [place], [place] [id number] Ronald Mills MD 240 [facility] A1 [place] [address] documented as of this encounter Visit Diagnoses Not on filedocumented in this encounter Additional Health Concerns Infection Onset Date Last Indicated Resolved Time COVID-19 03/05/2022 03/05/2022 03/15/2022 7:18 PM EDT documented as of this encounter Care Teams Snap Shearer Relationship Specialty Start Date End Date Caitlyn Bowie MD 3400 [facility] 1 [place] [address] PCP - General Internal Medicine 05/06/21 Henry Kelly MD Pulmonary Department 175 [facility], [address] [place] [address] Physician Pulmonary Disease 09/06/17 06/22/20 documented as of this encounter
--- OUTSIDE RECORDS SUMMARY | 2025-04-09 11:56 | XMS_ITS | Encounter Summary ---
Author Organization [facility] Address [address] [place] [address] Care Team Providers Care Welding Specialist Name Role Phone Caitlyn Bowie MD Primary Care Provider +1- [phone] Encounter Details Date Type Department Care Team (Late st Contact Info) Description 04/25/2022 Scanned Document INTERFACE DEFAULT [address] [place] [address] System, Provider Not In Social History Tobacco [...] [facility] [address] [facility] [address] [place] [address] Ronald Mills MD [address] [place] [address] [address] [place] [address] documented as of this encounter Visit Diagnoses Not on filedocumented in this encounter Additional Health Concerns Assessment Noted Time PHQ-9 Depression Total Score: 2 11/07/19 19 2:06 PM EDT documented as of this encounter Care Teams Welding Specialist Relationship Specialty Start Date End Date Caitlyn Bowie MD [address] [address] PCP - General Internal Medicine 05/06/21 documented as of this encounter
--- OUTSIDE RECORDS SUMMARY | 2025-04-09 11:56 | XMS_ITS | Encounter Summary ---
Author Organization [facility] and [facility] Address [address] [place] [address] Care Team Providers Care Information Management Manager Name Role Phone Caitlyn Bowie MD Primary Care Provider +1- [phone] Encounter Details Date Type Department Care Team (Late st Contact Info) Description 12/31/2015 Scanned Document [facility] [address] [place] [address] External, Provider Social History Tobacco Use Types [...] [facility] Building [address] [place], [place] [phone] Ronald Mills MD [address] [place] [address] [address] [place] [address] documented as of this encounter Procedures Procedure Name Priority Date/Time Associated Diagnosis Comments LAB SCAN Routine 12/31/2015 documented in this encounter Results * Lab Scan (12/31/2015) Blood specimen (specimen) us Provider External LAB BLOOD ORDERABLES Final Res ult Performing Organization Address City/State/[facility] Co de Phone Number [facility] documented in this encounter Visit Diagnoses Not on filedocumented in this encounter Additional Health Concerns Infection Onset Date Last Indicated Resolved Time COVID-19 03/05/2022 03/05/2022 03/15/2022 7:18 PM EDT documented as of this encounter Care Teams Information Management Manager Relationship Specialty Start Date End Date Caitlyn Bowie MD 3400 [facility] 1 [place] [address] PCP - General Internal Medicine 05/06/21 Henry Kelly MD Pulmonary Department 175 [facility], [address] [place] [address] Physician Pulmonary Disease 09/06/17 06/22/20 documented as of this encounter
--- OUTSIDE RECORDS SUMMARY | 2025-04-09 11:56 | XMS_ITS | Encounter Summary ---
Author Organization [facility] and [facility] Address [address] [place] [address] Care Team Providers Care Fall Intern Name Role Phone Caitlyn Bowie MD Primary Care Provider +1- [phone] Encounter Details Date Type Department Care Team (Late st Contact Info) Description 04/19/2022 Scanned Document INTERFACE DEFAULT [address] [place] [address] System, Provider Not In Social History Tobacco [...] [facility] 240 [facility] Building [address] [place], [place] [address] Ronald Mills MD [address] [place] [address] [address] [place] [address] documented as of this encounter [...] documented as of this encounter Care Teams Fall Intern Relationship Specialty Start Date End Date Caitlyn Bowie MD [address] [address] PCP - General Internal Medicine 05/06/21 documented as of this encounter
--- OUTSIDE RECORDS SUMMARY | 2025-04-09 11:56 | XMS_ITS | Encounter Summary ---
Author Organization [facility] and [facility] Address [address] [place] [address] Care Team Providers Care Electromyographic Technician Name Role Phone Caitlyn Bowie MD Primary Care Provider +1- [phone] Encounter Details Date Type Department Care Team (Late st Contact Info) Description 04/22/2022 Scanned Document INTERFACE DEFAULT [address] [place] [address] System, Provider Not In Social History Tobacco [...] Health 240 [facility] Building [address] [place], [place] [id number] Ronald Mills MD [address] [place] [address] [address] [place] [address] documented as of this encounter [...] documented as of this encounter Care Teams Electromyographic Technician Relationship Specialty Start Date End Date Caitlyn Bowie MD [address] [address] PCP - General Internal Medicine 05/06/21 documented as of this encounter
--- OUTSIDE RECORDS SUMMARY | 2025-04-09 11:56 | XMS_ITS | Encounter Summary ---
Author Organization [facility] Address [address] [place] [address] Care Team Providers Care Septic Technician Name Role Phone Caitlyn Bowie MD Primary Care Provider +1- [phone] Encounter Details Date Type Department Care Team (Late st Contact Info) Description 04/28/2022 Scanned Document INTERFACE DEFAULT [address] [place] [address] System, Provider Not In Social History Tobacco [...] [facility] 240 [facility] Building [address] [place], [place] [address] Ronald Mills MD [address] [place] [address] [address] [place] [address] documented as of this encounter [...] as of this encounter Care Teams Septic Technician Relationship Specialty Start Date End Date Caitlyn Bowie MD [facility] [address] [address] PCP - General Internal Medicine 05/06/21 documented as of this encounter
--- OUTSIDE RECORDS SUMMARY | 2025-04-09 11:56 | XMS_ITS | Clinical Summary ---
Author Organization [address] Address [address] [place] [address] Phone Care Team Providers Care Blacktop Paver Operator Name Role Phone Caitlyn Bowie MD Primary Care Provider +1- [phone] Allergies Active Allergy Reactions Criticality Noted Date [...] Code) 03/18/2013 Bleeding 03/18/2013 Factor V Leiden 03/18/2013 Dyspnea on exertion KANDY on CPAP Exposed to tobacco smoke by family members ramos paige indoors Bronchiectasis COPD (chronic obstructive pulmonary disease) Mildly restrictive lung disease Resolved Problems Problem Noted Date Diagnosed Date Resolved Date KANDY (obstructive sleep apnea) 11/21/2016 01/22/2018 Carotid stenosis, asymptomatic, right 09/18/2015 06/10/2016 Encounters Date Type Department Care Team Description 04/05/2025 Telephone CONSOLE ASSEMBLER [facility] [address] [place] [address] Mary Pan MD Advice Only 01/20/2025 Telephone [facility] 35 [facility] NP7-[address] [place] [address] Ronald Mills MD Triage from Last 3 [...] PM EDT [facility] at [address] [place], [place] [address] Ronald Mills MD [address] [place] [address] [address]1 [place] [address] Health Maintenance Due Date Last Done Comments HIV screening 1958 Shingles vaccine (Shingrix) (1 of 2 - Shingrix (RZV) 2 Dose Standard Series) 1993 RSV Immunization (1 - 1-dose 75+ series) 2018 Lipid disorder screening 03/18/2021 03/18/2016 Influenza vaccine 02/07/2025 06/12/2024, , 05/13/2022, Additional history exists Covid-19 vaccine series ( - season) 2025 09/03/2020, 08/06/2020 Diabetes screening 04/05/2025 [...] - 144 mmol/L 04/05/2022 1:43 PM EDT [facility] DEPARTMENT OF LABORATORY MEDICINE [facility] Potassium 4.7 3.3 - 5.3 mmol/L 04/05/2022 1:43 PM EDT [facility] DEPARTMENT OF LABORATORY MEDICINE [facility] Chloride 100 98 - 107 mmol/L 04/05/2022 1:43 PM EDT [facility] DEPARTMENT OF LABORATORY MEDICINE [facility] CO2 30 20 - 30 mmol/L 04/05/2022 1:43 PM EDT [facility] DEPARTMENT OF LABORATORY MEDICINE [facility] Anion Gap 8 7 - 17 04/05/2022 1:43 PM EDT [facility] DEPARTMENT OF LABORATORY MEDICINE [facility] Glucose 115(H) 70 - 100 mg/dL 04/05/2022 1:43 PM EDT [facility] DEPARTMENT OF LABORATORY MEDICINE [facility] BUN 16 8 - 23 mg/dL 04/05/2022 1:43 PM EDT [facility] DEPARTMENT LABORATORY MEDICINE [facility] Creatinine 0.89 0.40 - 1.30 mg/dL 04/05/2022 1:43 PM EDT [facility] DEPARTMENT LABORATORY MEDICINE [facility] Calcium 10.5(H) 8.8 - 10.2 mg/dL 04/05/2022 1:43 PM EDT [facility] DEPARTMENT OF LABORATORY MEDICINE [facility] BUN/Creatinine Ratio 18.0 8.0 - 23.0 03/11 1:43 PM EDT [facility] DEPARTMENT OF LABORATORY MEDICINE [facility] Total Protein 7.0 6.6 - 8.7 g/dL 04/05/2022 1:43 PM T [facility] DEPARTMENT LABORATORY MEDICINE [facility] Albumin 4.2 3.6 - 4.9 g/dL 04/05/2022 1:43 PM T [facility] DEPARTMENT LABORATORY MEDICINE [facility] Total Bilirubin 0.6 <=1.2 mg/dL 04/05/2022 1:43 PM T [facility] DEPARTMENT OF LABORATORY MEDICINE [facility] Alkaline Phosphatase 58 9 - 122 U/L 04/05/2022 1:43 PM [facility] DEPARTMENT OF LABORATORY MEDICINE [facility] Alanine Aminotransferase (ALT) 19 10 - 35 U/L 04/05/2022 1:43 PM T [facility] DEPARTMENT OF LABORATORY MEDICINE [facility] Comment:Calcium dobesilate c an cause artificially low ALT results at therapeutic concentrations Aspartate Aminotransferase (AST) 26 10 - 35 U/L 04/05/2022 1:43 PM EDT [facility] DEPARTMENT LABORATORY MEDICINE [facility] Globulin 2.8 2.3 - 3.5 g/dL 04/05/2022 1:43 PM [facility] DEPARTMENT LABORATORY MEDICINE [facility] A/G Ratio 1.5 1.0 - 2.2 04/05/2022 1:43 PM EDT [facility] DEPARTMENT OF LABORATORY MEDICINE [facility] AST/ALT Ratio 1.4 See Comment 04/05/2022 1:43 PM EDT [facility] OF LABORATORY MEDICINE [facility] Comment: Adult with mild elevations of [...] >=60 mL/min/1.7 3m2 04/05/2022 1:43 PM EDT [facility] DEPARTMENT OF LABORATORY MEDICINE [facility] Comment:Estimated glomerular filtration rate (eGFR) was [...] Final Resul t [facility] DEPARTMENT OF LABORATORY MEDICINE [facility] [address] [place] [address] * Bone Density Result Scan (05/10/2017) us Historical Provider IMG SCAN REPORTS Final Resul t * (ABNORMAL) Lipid panel (03/18/2016 2:55 PM EDT) Cholesterol 229(H) 115 - 199 mg/dL 03/18/2016 8:11 PM EDT [facility] HDL 83 >=40 mg/dL 03/18/2016 8:11 PM EDT [facility] Triglycerides 71 30 - 150 mg/dL 03/18/2016 8:11 PM EDT [facility] Chol/HDL Ratio 2.8 <=5 03/18/2016 8:11 PM EDT [facility] Comment:Cholesterol/HDL rati o cannot be calculated. LDL Calculated 132 See Comment mg/dL 03/18/2016 8:11 PM EDT [facility] Comment: <100: Optimal 100-129: Near optimal/above optimal 130-159: Borderline high risk 160-189: High risk >=190: Very high risk Blood specimen (specimen) Venipuncture / Unknown 03/18/2016 2:55 PM EDT 03/18/2016 3:17 PM EDT Narrative [facility] - 03/18/2016 8:11 PM EDT $18.27 us Sangeeta Garces MD LAB BLOOD ORDERABLES Fin al Result [facility] [address] [place] [address] * MAMMOGRAPHY REPORT (04/25/2013 6:47 AM EDT) 04/25/2013 6:47 AM EDT us Provider Not In System IMG SCAN REPORTS Final Re sult from Last 3 Months or Most Recently Relevant to Health Maintenance Insurance MEDICARE [facility] MED[facility] MED[facility] MEDICARE BCBS Advance Directives * Full ACLS (Latest Code Status on File) Date Activated Date Inactivated Comments 12/15/2018 7:13 PM 12/16/2018 6:09 PM * Full Interventions Date Activated Date Inactivated Comments 03/18/2016 6:34 PM 03/19/2016 6:40 PM Care Teams Blacktop Paver Operator Relationship Specialty Start Date End Date Caitlyn Bowie MD [facility] [address] [address] PCP - General Internal Medicine 05/06/21
--- OUTSIDE RECORDS SUMMARY | 2025-04-09 11:56 | XMS_ITS | Encounter Summary ---
Author Organization [facility] Address [address] [place] [address] Care Team Providers Care Air Pollution Analyst Name Role Phone Caitlyn Bowie MD Primary Care Provider +1- [phone] Encounter Details Date Type Department Care Team (Late st Contact Info) Description 05/04/2022 Scanned Document INTERFACE DEFAULT [address] [place] [address] System, Provider Not In Social History Tobacco [...] [facility] at [facility] 240 [facility] Building [address] [place] [address] Ronald Mills MD [address] [place] [address] [address] [place] [address] documented as of this encounter Visit Diagnoses Not on filedocumented in this encounter Additional Health Concerns Assessment Noted Time PHQ-9 Depression Total Score: 2 11/07/19 19 2:06 PM EDT documented as of this encounter Care Teams Air Pollution Analyst Relationship Specialty Start Date End Date Caitlyn Bowie MD [address] [address] PCP - General Internal Medicine 05/06/21 documented as of this encounter
--- OUTSIDE RECORDS SUMMARY | 2025-04-09 11:56 | XMS_ITS | Encounter Summary ---
Author Organization [facility] Address [address] [place] [address] Care Team Providers Care Aircraft Engine Specialist Name Role Phone Caitlyn Bowie MD Primary Care Provider +1- [phone] Encounter Details Date Type Department Care Team (Late st Contact Info) Description 05/02/2022 Scanned Document INTERFACE DEFAULT [address] [place] [address] System, Provider Not In Social History Tobacco [...] [facility] 240 [facility] Building [address] [place] [address] Ronald Mills MD [address] [place] [address] [address] [place] [address] documented as of this encounter [...] as of this encounter Care Teams Aircraft Engine Specialist Relationship Specialty Start Date End Date Caitlyn Bowie MD [address] [address] PCP - General Internal Medicine 05/06/21 documented as of this encounter
--- OUTSIDE RECORDS SUMMARY | 2025-04-09 11:57 | XMS_ITS | Encounter Summary ---
Author Organization [facility] Address [address] [place] [address] Care Team Providers Care Pet Counselor Name Role Phone Caitlyn Bowie MD Primary Care Provider +1- [phone] Encounter Details Date Type Department Care Team (Late st Contact Info) Description 12/01/2015 Scanned Document [facility] Health Information Management [address] [place] [address] External, Provider Social History Tobacco Use Types [...] [facility] 240 [facility] Building [address] [place], [place] [address] Ronald Mills MD 240 [facility] [address] [place] [address] documented as of this encounter Procedures Procedure Name Priority Date/Time Associated Diagnosis Comments CT RESULT SCAN Routine 12/01/2015 documented in this encounter Results * CT Result Scan (12/01/2015) us Provider External IMG SCAN REPORTS Edited Result - Final [facility] Transfer, [place], [facility] documented in this encounter Visit Diagnoses Not on filedocumented in this encounter Additional Health Concerns Infection Onset Date Last Indicated Resolved Time COVID-19 03/05/2022 03/05/2022 03/15/2022 7:18 PM EDT documented as of this encounter Care Teams Pet Counselor Relationship Specialty Start Date End Date Caitlyn Bowie MD [address] [facility] Max [address] [place] [address] PCP - General Internal Medicine 05/06/21 Henry Kelly MD Pulmonary Department 175 [facility], [address] [place] [address] Physician Pulmonary Disease 09/06/17 06/22/20 documented as of this encounter
--- OUTSIDE RECORDS SUMMARY | 2025-04-09 11:57 | XMS_ITS | Encounter Summary ---
Author Organization [facility] and [facility] Address [address] [place] [address] Care Team Providers Care Rn Supplemental Name Role Phone Caitlyn Bowie MD Primary Care Provider +1- [phone] Encounter Details Date Type Department Care Team (Late st Contact Info) Description 04/12/2021 Scanned Document INTERFACE DEFAULT [address] [place] [address] System, Provider Not In Social History Tobacco [...] [facility] 240 [facility] Building [address] [place], [place] [address] Ronald Mills MD [address] [place] [address] [address] [place] [address] documented as of this encounter [...] as of this encounter Care Teams Rn Supplemental Relationship Specialty Start Date End Date Caitlyn Bowie MD [address] [address] PCP - General Internal Medicine 05/06/21 documented as of this encounter
--- OUTSIDE RECORDS SUMMARY | 2025-04-09 11:57 | XMS_ITS | Encounter Summary ---
Author Organization [facility] Address [address] [place] [address] Care Team Providers Care Hypoid Gear Tester Name Role Phone Caitlyn Bowie MD Primary Care Provider +1- [phone] Encounter Details Date Type Department Care Team (Late st Contact Info) Description 04/13/2022 Scanned Document INTERFACE DEFAULT [address] [place] [address] System, Provider Not In Social History Tobacco [...] [facility] 240 [facility] Building [address] [place], [place] [address] Ronald Mills MD [address] [place] [address] [address] [place] [address] documented as of this encounter [...] documented as of this encounter Care Teams Hypoid Gear Tester Relationship Specialty Start Date End Date Caitlyn Bowie MD [address] [address] PCP - General Internal Medicine 05/06/21 documented as of this encounter
--- OUTSIDE RECORDS SUMMARY | 2025-04-09 11:57 | XMS_ITS | Encounter Summary ---
Author Organization [facility] Address [address] [place] [address] Care Team Providers Care Billboard Poster Name Role Phone Caitlyn Bowie MD Primary Care Provider +1- [phone] Encounter Details Date Type Department Care Team (Late st Contact Info) Description 03/02/2022 Scanned Document [facility] Health Information Management [address] [place] [address] External, Provider Social History Tobacco Use Types [...] [facility] 240 [facility] Building [address] [place], [place] [address] Ronald Mills MD [address] [place] [address] [address] [place] [address] documented as of this encounter Visit Diagnoses Not on filedocumented in this encounter Additional Health Concerns Infection Onset Date Last Indicated Resolved Time COVID-19 03/05/2022 03/05/2022 03/15/2022 7:18 PM EDT Assessment Noted Time PHQ-9 Depression Total Score: 2 11/07/19 19 2:06 PM EDT documented as of this encounter Care Teams Billboard Poster Relationship Specialty Start Date End Date Caitlyn Bowie MD [address] [address] PCP - General Internal Medicine 05/06/21 documented as of this encounter
--- OUTSIDE RECORDS SUMMARY | 2025-04-09 11:57 | XMS_ITS | Encounter Summary ---
Author Organization [facility] Address [address] [place] [address] Care Team Providers Care Japanese Tutor Name Role Phone Caitlyn Bowie MD Primary Care Provider +1- [phone] Encounter Details Date Type Department Care Team (Late st Contact Info) Description 04/11/2021 Scanned Document [facility] Health Information Management [address] [place] [address] External, Provider Social History Tobacco Use Types [...] [facility] 240 [facility] Building [address] [place], [place] [address] Ronald Mills MD [address] [place] [address] [address] [place] [address] documented as of this encounter Visit Diagnoses Not on filedocumented in this encounter Additional Health Concerns Infection Onset Date Last Indicated Resolved Time COVID-19 03/05/2022 03/05/2022 03/15/2022 7:18 PM EDT Assessment Noted Time PHQ-9 Depression Total Score: 2 11/07/19 19 2:06 PM EDT documented as of this encounter Care Teams Japanese Tutor Relationship Specialty Start Date End Date Caitlyn Bowie MD [address] [address] PCP - General Internal Medicine 05/06/21 documented as of this encounter
--- OUTSIDE RECORDS SUMMARY | 2025-04-09 11:57 | XMS_ITS | Encounter Summary ---
Author Organization [facility] Address [address] [address] Care Team Providers Care Child Care Worker Name Role Phone Caitlyn Bowie MD Primary Care Provider +1- [phone] Encounter Details Date Type Department Care Team (Late st Contact Info) Description 04/11/2019 Scanned Document [facility] Health Information Management [address] [place] [address] External, Provider Social History Tobacco Use Types [...] [facility] 240 [facility] Building [address] [place] [address] Ronald Mills MD [address] [place] [address] [address] [place] [address] documented as of this encounter [...] of this encounter Care Teams Child Care Worker Relationship Specialty Start Date End Date Caitlyn Bowie MD 3400 [facility] 1 [place] [address] PCP - General Internal Medicine 05/06/21 Henry Kelly MD Pulmonary Department 175 [facility], [address] [place] [address] Physician Pulmonary Disease 09/06/17 06/22/20 documented as of this encounter
--- OUTSIDE RECORDS SUMMARY | 2025-04-09 11:57 | XMS_ITS | Encounter Summary ---
Author Organization [facility] Address [address] [place] [address] Care Team Providers Care Geophysicist Name Role Phone Caitlyn Bowie MD Primary Care Provider +1- [phone] Encounter Details Date Type Department Care Team (Late st Contact Info) Description 04/21/2021 Scanned Document INTERFACE DEFAULT [address] [place] [address] System, Provider Not In Social History Tobacco [...] at [facility] 240 [facility] Building [address] [place], [place] [address] Ronald Mills MD [address] [place] [address] [address] [place] [address] documented as [...] documented as of this encounter Care Teams Geophysicist Relationship Specialty Start Date End Date Caitlyn Bowie MD [facility] [address] [address] PCP - General Internal Medicine 05/06/21 documented as of this encounter
--- OUTSIDE RECORDS SUMMARY | 2025-04-09 11:57 | XMS_ITS | Encounter Summary ---
Author Organization [facility] and [facility] Address [address] [place] [address] Care Team Providers Care Cover Maker Name Role Phone Caitlyn Bowie MD Primary Care Provider +1- [phone] Encounter Details Date Type Department Care Team (Late st Contact Info) Description 04/12/2022 Scanned Document INTERFACE DEFAULT [address] [place] [address] System, Provider Not In Social History Tobacco [...] [facility] Building [address] [place] [address] Ronald Mills MD [address] [place] [address] [address] [place] [address] documented as of this encounter [...] documented as of this encounter Care Teams Cover Maker Relationship Specialty Start Date End Date Caitlyn Bowie MD [address] [address] PCP - General Internal Medicine 05/06/21 documented as of this encounter
--- OUTSIDE RECORDS SUMMARY | 2025-04-09 11:57 | XMS_ITS | Encounter Summary ---
Author Organization [facility] Address [address] [place] [address] Care Team Providers Care Hris Administrator Name Role Phone Caitlyn Bowie MD Primary Care Provider +1- [phone] Encounter Details Date Type Department Care Team (Late st Contact Info) Description 04/13/2021 Scanned Document INTERFACE DEFAULT [address] [place] [address] System, Provider Not In Social History Tobacco [...] [facility] 240 [facility] Building [address] [place], [place] [address] Ronald Mills MD [address] [place] [address] [address] [place] [address] documented as of this encounter [...] documented as of this encounter Care Teams Hris Administrator Relationship Specialty Start Date End Date Caitlyn Bowie MD [address] [address] PCP - General Internal Medicine 05/06/21 documented as of this encounter
--- OUTSIDE RECORDS SUMMARY | 2025-04-09 11:57 | XMS_ITS | Encounter Summary ---
Author Organization [facility] Address [address] [place] [address] Care Team Providers Care Infection Control Preventionist Name Role Phone Caitlyn Bowie MD Primary Care Provider +1- [phone] Encounter Details Date Type Department Care Team (Late st Contact Info) Description 06/07/2017 Scanned Document [facility] Health Information Management [address] [place] [address] External, Provider Social History Tobacco Use Types [...] [facility] 240 [facility] Building [address] [place], [place] [address] Ronald Mills MD [address] [place] [address] [address] [place] [address] documented as of this encounter [...] of this encounter Care Teams Infection Control Preventionist Relationship Specialty Start Date End Date Caitlyn Bowie MD 3400 [facility] 1 [place] [address] PCP - General Internal Medicine 05/06/21 Henry Kelly MD Pulmonary Department 175 [facility], [address] [place] [address] Physician Pulmonary Disease 09/06/17 06/22/20 documented as of this encounter
--- OUTSIDE RECORDS SUMMARY | 2025-04-09 11:57 | XMS_ITS | Encounter Summary ---
Author Organization [facility] and [facility] Address [address] [place] [address] Care Team Providers Care Heat Treat Operator Name Role Phone Caitlyn Bowie MD Primary Care Provider +1- [phone] Encounter Details Date Type Department Care Team (Late st Contact Info) Description 04/18/2022 Scanned Document INTERFACE DEFAULT [address] [place] [address] System, Provider Not In Social History Tobacco [...] [facility] 240 [facility] Building [address] [place] [address] Ronald Mills MD [address] [place] [address] [address] [place] [address] documented as of this encounter Visit Diagnoses Not on filedocumented in this encounter Additional Health Concerns Assessment Noted Time PHQ-9 Depression Total Score: 2 11/07/19 19 2:06 PM EDT documented as of this encounter Care Teams Heat Treat Operator Relationship Specialty Start Date End Date Caitlyn Bowie MD [address] [address] PCP - General Internal Medicine 05/06/21 documented as of this encounter
--- OUTSIDE RECORDS SUMMARY | 2025-04-09 11:57 | XMS_ITS | Encounter Summary ---
Author Organization [facility] Address [address] [place] [address] Care Team Providers Care Registered Nurse Renal Name Role Phone Caitlyn Bowie MD Primary Care Provider +1- [phone] Encounter Details Date Type Department Care Team (Late st Contact Info) Description 08/09/2017 Scanned Document Cardiovascular Medicine at [address] [place] [address] [place] [address] System, Provider Not In Social History Tobacco [...] [facility] 240 [facility] Building [address] [place] [address] Ronald Mills MD 240 [facility] [address] [place] [address] documented as of this encounter [...] of this encounter Care Teams Registered Nurse Renal Relationship Specialty Start Date End Date Caitlyn Bowie MD 3400 [facility] 1 [place] [address] PCP - General Internal Medicine 05/06/21 Henry Kelly MD Pulmonary Department 175 [facility], [address] [place] [address] Physician Pulmonary Disease 09/06/17 06/22/20 documented as of this encounter
--- OUTSIDE RECORDS SUMMARY | 2025-04-09 11:57 | XMS_ITS | Encounter Summary ---
Author Organization [facility] and [facility] Address [address] [place] [address] Care Team Providers Care Customer Retention Specialist Name Role Phone Caitlyn Bowie MD Primary Care Provider +1- [phone] Encounter Details Date Type Department Care Team (Late st Contact Info) Description 04/11/2021 Scanned Document INTERFACE DEFAULT [address] [place] [address] System, Provider Not In Social History Tobacco [...] [facility] 240 [facility] Building [address] [place], [place] [phone] Ronald Mills MD [address] [place] [address] [address] [place] [address] documented as of this encounter [...] as of this encounter Care Teams Customer Retention Specialist Relationship Specialty Start Date End Date Caitlyn Bowie MD [address] [address] PCP - General Internal Medicine 05/06/21 documented as of this encounter
--- OUTSIDE RECORDS SUMMARY | 2025-04-09 11:57 | XMS_ITS | Encounter Summary ---
Author Organization [facility] Address [address] [place] [address] Care Team Providers Care Repair Tech Name Role Phone Caitlyn Bowie MD Primary Care Provider +1- [phone] Encounter Details Date Type Department Care Team (Late st Contact Info) Description 04/22/2021 Scanned Document INTERFACE DEFAULT [address] [place] [address] System, Provider Not In Social History Tobacco [...] [facility] 240 [facility] Building [address] [place], [place] [phone] Ronald Mills MD [address] [place] [address] [address] [place] [address] documented as of this encounter [...] as of this encounter Care Teams Repair Tech Relationship Specialty Start Date End Date Caitlyn Bowie MD [facility] [address] [address] PCP - General Internal Medicine 05/06/21 documented as of this encounter
--- OUTSIDE RECORDS SUMMARY | 2025-04-09 11:57 | XMS_ITS | Encounter Summary ---
Author Organization [facility] and [facility] Address [address] [place] [address] Care Team Providers Care Health And Wellness Instructor Name Role Phone Caitlyn Bowie MD Primary Care Provider +1- [phone] Encounter Details Date Type Department Care Team (Late st Contact Info) Description 12/16/2015 Scanned Document [facility] Health Information Management [address] [place] [address] External, Provider Social History Tobacco Use [...] [facility] 240 [facility] Building [address] [place], [place] [phone] Ronald Mills MD 240 [facility] [address] [place] [address] documented as of this encounter Procedures Procedure Name Priority Date/Time Associated Diagnosis Comments US RESULT SCAN Routine 12/16/2015 documented in this encounter Results * US Result Scan (12/16/2015) us Provider External IMG SCAN REPORTS Edited Result - Final [facility] [place], [place], [facility] documented in this encounter Visit Diagnoses Not on filedocumented in this encounter Additional Health Concerns Infection Onset Date Last Indicated Resolved Time COVID-19 03/05/2022 03/05/2022 03/15/2022 7:18 PM EDT documented as of this encounter Care Teams Health And Wellness Instructor Relationship Specialty Start Date End Date Caitlyn Bowie MD 3400 [facility] Max 1 [place] [address] PCP - General Internal Medicine 05/06/21 Henry Kelly MD Pulmonary Department 175 [facility], [address] [place] [address] Physician Pulmonary Disease 09/06/17 06/22/20 documented as of this encounter
--- OUTSIDE RECORDS SUMMARY | 2025-04-09 11:57 | XMS_ITS | Encounter Summary ---
Author Organization [facility] and [facility] Address [address] [place] [address] Care Team Providers Care Personal Lines Underwriter Name Role Phone Caitlyn Bowie MD Primary Care Provider +1- [phone] Encounter Details Date Type Department Care Team (Late st Contact Info) Description 12/03/2015 Scanned Document [facility] Health Information Management [address] [place] [address] External, Provider Social History Tobacco Use Types [...] [facility] 240 [facility] Building [address] [place], [place] [phone] Ronald Mills MD 240 [facility] Max [address] [place] [address] documented as of this encounter Procedures Procedure Name Priority Date/Time Associated Diagnosis Comments LAB SCAN Routine 12/03/2015 documented in this encounter Results * Lab Scan (12/03/2015) Blood specimen (specimen) us Provider External LAB BLOOD ORDERABLES Edited Re sult - Final [facility] documented in this encounter Visit Diagnoses Not on filedocumented in this encounter Additional Health Concerns Infection Onset Date Last Indicated Resolved Time COVID-19 03/05/2022 03/05/2022 03/15/2022 7:18 PM EDT documented as of this encounter Care Teams Personal Lines Underwriter Relationship Specialty Start Date End Date Caitlyn Bowie MD 3400 [facility] 1 [place] [address] PCP - General Internal Medicine 05/06/21 Henry Kelly MD Pulmonary Department 175 [facility], [address] [place] [address] Physician Pulmonary Disease 09/06/17 06/22/20 documented as of this encounter
--- OUTSIDE RECORDS SUMMARY | 2025-04-09 11:57 | XMS_ITS | Encounter Summary ---
Author Organization [facility] and [facility] Address [address] [place] [address] Care Team Providers Care Greeter Guest Services Name Role Phone Caitlyn Bowie MD Primary Care Provider +1- [phone] Encounter Details Date Type Department Care Team (Late st Contact Info) Description 04/14/2022 Scanned Document INTERFACE DEFAULT [address] [place] [phone] System, Provider Not In Social History Tobacco [...] [facility] 240 [facility] Building [address] [place] [address] Ronald Mills MD [address] [place] [address] [address] [place] [address] documented as of this encounter Visit Diagnoses Not on filedocumented in this encounter Additional Health Concerns Assessment Noted Time PHQ-9 Depression Total Score: 2 11/07/19 19 2:06 PM EDT documented as of this encounter Care Teams Greeter Guest Services Relationship Specialty Start Date End Date Caitlyn Bowie MD [address] [address] PCP - General Internal Medicine 05/06/21 documented as of this encounter
--- OUTSIDE RECORDS SUMMARY | 2025-04-09 11:57 | XMS_ITS | Encounter Summary ---
Author Organization [facility] and [facility] Address [address] [place] [address] Care Team Providers Care Camp Dining Room Attendant Name Role Phone Caitlyn Bowie MD Primary Care Provider +1- [phone] Reason for Visit * Reason Comments Results Encounter Details Date Type Department Care Team (Late st Contact Info) Description 03/15/2022 Telephone [facility] [address] [address] Ronald Mills MD [address] [place] [address] Results Social History Tobacco Use Types [...] [facility] 240 [facility] Building [address] [place], [place] [phone] Ronald Mills MD 240 [facility] [address] [place] [address] documented as of this encounter Visit Diagnoses Not on filedocumented in this encounter Additional Health Concerns Infection Onset Date Last Indicated Resolved Time COVID-19 03/05/2022 03/05/2022 03/15/2022 7:18 PM EDT Assessment Noted Time PHQ-9 Depression Total Score: 2 11/07/19 19 2:06 PM EDT documented as of this encounter Care Teams Camp Dining Room Attendant Relationship Specialty Start Date End Date Caitlyn Bowie MD [address] [address] PCP - General Internal Medicine 05/06/21 documented as of this encounter
--- OUTSIDE RECORDS SUMMARY | 2025-04-09 11:57 | XMS_ITS | Encounter Summary ---
Author Organization [facility] and [facility] Address [address] [place] [address] Care Team Providers Care Leg Man Name Role Phone Caitlyn Bowie MD Primary Care Provider +1- [phone] Encounter Details Date Type Department Care Team (Late Contact Info) Description 04/12/2022 Scanned Document [facility] Health Information Management [address] [place] [address] External, Provider Social History Tobacco Use Types [...] [facility] 240 [facility] Building [address] [place], [place] [phone] Ronald Mills MD [address] [place] [address] [address] [place] [address] documented as of this encounter [...] documented as of this encounter Care Teams Leg Man Relationship Specialty Start Date End Date Caitlyn Bowie MD [address] [address] PCP - General Internal Medicine 05/06/21 documented as of this encounter
--- OUTSIDE RECORDS SUMMARY | 2025-04-09 11:57 | XMS_ITS | Encounter Summary ---
Author Organization [facility] and [facility] Address [address] [place] [address] Care Team Providers Care Electrical Calibrator Name Role Phone Caitlyn Bowie MD Primary Care Provider +1- [phone] Encounter Details Date Type Department Care Team (Late st Contact Info) Description 04/16/2022 Scanned Document INTERFACE DEFAULT [address] [place] [address] System, Provider Not In Social History Tobacco [...] [facility] Building [address] [place], [place] [phone] Ronald Mills MD [address] [place] [address] [address] [place] [address] documented as of this encounter [...] as of this encounter Care Teams Electrical Calibrator Relationship Specialty Start Date End Date Caitlyn Bowie MD [address] [address] PCP - General Internal Medicine 05/06/21 documented as of this encounter
--- OUTSIDE RECORDS SUMMARY | 2025-04-09 11:57 | XMS_ITS | Encounter Summary ---
Author Organization [facility] and [facility] Address [address] [place] [address] Care Team Providers Care Maint Mechanic Name Role Phone Caitlyn Bowie MD Primary Care Provider +1- [phone] Encounter Details Date Type Department Care Team (Late st Contact Info) Description 03/12/2019 Scanned Document [facility] Health Information Management [address] [place] [address] External, Provider Social History Tobacco Use Types [...] [facility] 240 [facility] Building [address] [place] [address] Ronald Mills MD [address] [place] [address] [address] [place] [address] documented as of this encounter [...] documented as of this encounter Care Teams Maint Mechanic Relationship Specialty Start Date End Date Caitlyn Bowie MD 3400 [facility] 1 [place] [address] PCP - General Internal Medicine 05/06/21 Henry Kelly MD Pulmonary Department 175 [facility], [address] [place] [address] Physician Pulmonary Disease 09/06/17 06/22/20 documented as of this encounter
--- OUTSIDE RECORDS SUMMARY | 2025-04-09 11:57 | XMS_ITS | Encounter Summary ---
Author Organization [facility] and [facility] Address [address] [place] [address] Care Team Providers Care Sheet Mill Supervisor Name Role Phone Caitlyn Bowie MD Primary Care Provider +1- [phone] Encounter Details Date Type Department Care Team (Late st Contact Info) Description 04/22/2019 Scanned Document [facility] Health Information Management [address] [place] [address] External, Provider Social History Tobacco Use Types [...] [facility] 240 [facility] [address] [place] [address] Ronald Mills MD [address] [place] [address] [address] [place] [address] documented as of this encounter Visit Diagnoses Not on filedocumented in this encounter Additional Health Concerns Infection Onset Date Last Indicated Resolved Time COVID-19 03/05/2022 03/05/2022 03/15/2022 7:18 PM EDT Assessment Noted Time PHQ-9 Depression Total Score: 2 11/07/19 19 2:06 PM EDT documented as of this encounter Care Teams Sheet Mill Supervisor Relationship Specialty Start Date End Date Caitlyn Bowie MD 3400 [facility] 1 [place] [address] PCP - General Internal Medicine 05/06/21 Henry Kelly MD Pulmonary Department 175 [facility], [address] [place] [address] Physician Pulmonary Disease 09/06/17 06/22/20 documented as of this encounter
--- OUTSIDE RECORDS SUMMARY | 2025-04-09 11:57 | XMS_ITS | Encounter Summary ---
Author Organization [facility] and [facility] Address [address] [place] [address] Care Team Providers Care Assistant Offset Press Operator Name Role Phone Caitlyn Bowie MD Primary Care Provider +1- [phone] Encounter Details Date Type Department Care Team (Late st Contact Info) Description 11/04/2015 Scanned Document [facility] Health Information Management [address] [place] [address] External, Provider Social History Tobacco Use Types [...] 240 [facility] Building [address] [place], [place] [id number] Ronald Mills MD 240 [facility] [address] [place] [address] documented as of this encounter Procedures Procedure Name Priority Date/Time Associated Diagnosis Comments NUC MED/PET RESULT SCAN Routine 11/04/2015 documented in this encounter Results * Nuc Med/PET Result Scan (11/04/2015) us Provider External IMG SCAN REPORTS Edited Result - Final [facility] [place], [place], [facility] documented in this encounter Visit Diagnoses Not on filedocumented in this encounter Additional Health Concerns Infection Onset Date Last Indicated Resolved Time COVID-19 03/05/2022 03/05/2022 03/15/2022 7:18 PM EDT documented as of this encounter Care Teams Assistant Offset Press Operator Relationship Specialty Start Date End Date Caitlyn Bowie MD 3400 [facility] Max 1 [place] [address] PCP - General Internal Medicine 05/06/21 Henry Kelly MD Pulmonary Department 175 [facility], [address] [place] [address] Physician Pulmonary Disease 09/06/17 06/22/20 documented as of this encounter
--- OUTSIDE RECORDS SUMMARY | 2025-04-09 11:57 | XMS_ITS | Encounter Summary ---
Author Organization [facility] and [facility] Address [address] [place] [address] Care Team Providers Care Telegraph Installer Name Role Phone Caitlyn Bowie MD Primary Care Provider +1- [phone] Encounter Details Date Type Department Care Team (Late st Contact Info) Description 12/29/2021 Telephone [facility] at [address] [address] Ronald Mills MD [address] [place] [address] Social History Tobacco Use Types Packs/Day [...] not sure where the blood's coming from. [phone] documented in this encounter Plan of Treatment Upcoming Encounters Date Type Department Care Team (Late st Contact Info) Description 04/25/2025 4:00 PM EDT Telemedicine [facility] 240 [facility] Building [address] [place] [address] Ronald Mills MD 240 [facility] A1 [place] [address] documented as of this encounter Visit Diagnoses Not on filedocumented in this encounter Additional Health Concerns Infection Onset Date Last Indicated Resolved Time COVID-19 03/05/2022 03/05/2022 03/15/2022 7:18 PM EDT Assessment Noted Time PHQ-9 Depression Total Score: 2 11/07/19 19 2:06 PM EDT documented as of this encounter Care Teams Telegraph Installer Relationship Specialty Start Date End Date Caitlyn Bowie MD [address] [address] PCP - General Internal Medicine 05/06/21 documented as of this encounter
--- OUTSIDE RECORDS SUMMARY | 2025-04-09 11:57 | XMS_ITS | Encounter Summary ---
Author Organization [facility] and [facility] Address [address] [place] [address] Care Team Providers Care Medical Administrative Specialist Name Role Phone Caitlyn Bowie MD Primary Care Provider +1- [phone] Encounter Details Date Type Department Care Team (Late st Contact Info) Description 08/21/2017 Scanned Document [facility] Health Information Management [address] [place] [address] External, Provider Social History Tobacco Use Types [...] [facility] 240 [facility] Building [address] [place], [place] [address] Ronald Mills MD [address] [place] [address] [address]1 [place] [address] documented as of [...] of this encounter Care Teams Medical Administrative Specialist Relationship Specialty Start Date End Date Caitlyn Bowie MD 3400 [facility] 1 [place] [address] PCP - General Internal Medicine 05/06/21 Henry Kelly MD Pulmonary Department 175 [facility], [address] [place] [address] Physician Pulmonary Disease 09/06/17 06/22/20 documented as of this encounter
--- OUTSIDE RECORDS SUMMARY | 2025-04-09 11:57 | XMS_ITS | Encounter Summary ---
Author Organization [facility] and [facility] Address [address] [place] [address] Care Team Providers Care Instructor Wastewater Treatment Plant Name Role Phone Caitlyn Bowie MD Primary Care Provider +1- [phone] Encounter Details Date Type Department Care Team (Late st Contact Info) Description 11/03/2015 Scanned Document [facility] Health Information Management [address] [place] [address] External, Provider Social History Tobacco Use Types [...] Telemedicine [facility] 240 [facility] Building [address] [place], [place] [address] Ronald Mills MD 240 [facility] [address] [place] [address] documented as of this encounter Procedures Procedure Name Priority Date/Time Associated Diagnosis Comments US RESULT SCAN Routine 11/03/2015 documented in this encounter Results * US Result Scan (11/03/2015) us Provider External IMG SCAN REPORTS Edited Result - Final [facility] [place], [place], [facility] documented in this encounter Visit Diagnoses Not on filedocumented in this encounter Additional Health Concerns Infection Onset Date Last Indicated Resolved Time COVID-19 03/05/2022 03/05/2022 03/15/2022 7:18 PM EDT documented as of this encounter Care Teams Instructor Wastewater Treatment Plant Relationship Specialty Start Date End Date Caitlyn Bowie MD 3400 [facility] Max 1 [place] [address] PCP - General Internal Medicine 05/06/21 Henry Kelly MD Pulmonary Department 175 [facility], [address] [place] [address] Physician Pulmonary Disease 09/06/17 06/22/20 documented as of this encounter
--- OUTSIDE RECORDS SUMMARY | 2025-04-09 11:57 | XMS_ITS | Encounter Summary ---
Author Organization [facility] and [facility] Address [address] [place] [address] Care Team Providers Care Netsuite Developer Name Role Phone Caitlyn Bowie MD Primary Care Provider +1- [phone] Encounter Details Date Type Department Care Team (Late st Contact Info) Description 01/08/2022 Scanned Document INTERFACE DEFAULT [address] [place] [address] System, Provider Not In Social History Tobacco [...] at [facility] 240 [facility] Building [address] [place], [place] [phone] Ronald Mills MD [address] [place] [address] [address] [place] [address] documented as of this encounter [...] documented as of this encounter Care Teams Netsuite Developer Relationship Specialty Start Date End Date Caitlyn Bowie MD [address] [address] PCP - General Internal Medicine 05/06/21 documented as of this encounter
--- OUTSIDE RECORDS SUMMARY | 2025-04-09 11:58 | XMS_ITS | Encounter Summary ---
Author Organization [facility] and [facility] Address [address] [place] [address] Care Team Providers Care Hydroelectric Plant Electrician Name Role Phone Caitlyn Bowie MD Primary Care Provider +1- [phone] Encounter Details Date Type Department Care Team (Late st Contact Info) Description 01/26/2019 Scanned Document [facility] Health Information Management [address] [place] [address] External, Provider Social History Tobacco Use Types [...] at [facility] 240 [facility] Building [address] [place] [address] Ronald Mills MD [address] [place] [address] [address]1 [place] [address] documented as of this encounter [...] as of this encounter Care Teams Hydroelectric Plant Electrician Relationship Specialty Start Date End Date Caitlyn Bowie MD 3400 [facility] 1 [place] [address] PCP - General Internal Medicine 05/06/21 Henry Kelly MD Pulmonary Department 175 [facility], [address] [place] [address] Physician Pulmonary Disease 09/06/17 06/22/20 documented as of this encounter
--- OUTSIDE RECORDS SUMMARY | 2025-04-09 11:58 | XMS_ITS | Encounter Summary ---
Author Organization [facility] Address [address] [place] [address] Care Team Providers Care Investment Director Name Role Phone Caitlyn Bowie MD Primary Care Provider +1- [phone] Encounter Details Date Type Department Care Team (Late st Contact Info) Description 01/08/2019 Scanned Document [facility] Health Information Management [address] [place] [address] External, Provider Social History Tobacco Use [...] [facility] 240 [facility] Building [address] [place] [address] Ronald Mills MD [address] [place] [address] [address]1 [place] [address] documented as of this encounter [...] as of this encounter Care Teams Investment Director Relationship Specialty Start Date End Date Caitlyn Bowie MD 3400 [facility] 1 [place] [address] PCP - General Internal Medicine 05/06/21 Henry Kelly MD Pulmonary Department 175 [facility], [address] [place] [address] Physician Pulmonary Disease 09/06/17 06/22/20 documented as of this encounter
--- OUTSIDE RECORDS SUMMARY | 2025-04-09 11:58 | XMS_ITS | Encounter Summary ---
Author Organization [facility] and [facility] Address [address] [place] [address] Care Team Providers Care Facility Worker Name Role Phone Caitlyn Bowie MD Primary Care Provider +1- [phone] Encounter Details Date Type Department Care Team (Late st Contact Info) Description 03/01/2021 Scanned Document INTERFACE DEFAULT [address] [place] [address] System, Provider Not In Social History Tobacco [...] [facility] 240 [facility] Building [address] [place] [address] Ronald Mills MD [address] [place] [address] [address] [place] [address] documented as of this encounter Visit Diagnoses Not on filedocumented in this encounter Additional Health Concerns Infection Onset Date Last Indicated Resolved Time COVID-19 03/05/2022 03/05/2022 03/15/2022 7:18 PM EDT Assessment Noted Time PHQ-9 Depression Total Score: 2 11/07/19 19 2:06 PM EDT documented as of this encounter Care Teams Facility Worker Relationship Specialty Start Date End Date Caitlyn Bowie MD [address] [address] PCP - General Internal Medicine 05/06/21 documented as of this encounter
--- OUTSIDE RECORDS SUMMARY | 2025-04-09 11:58 | XMS_ITS | Encounter Summary ---
Author Organization [facility] and [facility] Address [address] [place] [address] Care Team Providers Care Client Coordinator Name Role Phone Caitlyn Bowie MD Primary Care Provider +1- [phone] Encounter Details Date Type Department Care Team (Late st Contact Info) Description 09/18/2020 Scanned Document INTERFACE DEFAULT [address] [place] [address] System, Provider Not In Social History Tobacco [...] [facility] [address] [facility] Building [address] [place] [address] Ronald Mills MD [address] [place] [address] [address] [place] [address] documented as of this encounter Visit Diagnoses Not on filedocumented in this encounter Additional Health Concerns Infection Onset Date Last Indicated Resolved Time COVID-19 03/05/2022 03/05/2022 03/15/2022 7:18 PM EDT Assessment Noted Time PHQ-9 Depression Total Score: 2 11/07/19 19 2:06 PM EDT documented as of this encounter Care Teams Client Coordinator Relationship Specialty Start Date End Date Caitlyn Bowie MD [address] [address] PCP - General Internal Medicine 05/06/21 documented as of this encounter
--- OUTSIDE RECORDS SUMMARY | 2025-04-09 11:58 | XMS_ITS | Encounter Summary ---
Author Organization [facility] and [facility] Address [address] [place] [phone] Care Team Providers Care Bee Keeper Name Role Phone Caitlyn Bowie MD Primary Care Provider +1- [phone] Encounter Details Date Type Department Care Team (Late st Contact Info) Description 09/01/2017 Scanned Document [facility] Health Information Management [address] [place] [phone] External, Provider Social History Tobacco Use Types [...] [facility] 240 [facility] Building [address] [place], [place] [phone] Ronald Mills MD 240 [facility] [address] [place] [address] documented as of this encounter [...] documented as of this encounter Care Teams Bee Keeper Relationship Specialty Start Date End Date Caitlyn Bowie MD [facility] 1 [place] [address] PCP - General Internal Medicine 05/06/21 Henry Kelly MD Pulmonary Department 175 [facility], [address] [place] [address] Physician Pulmonary Disease 09/06/17 06/22/20 documented as of this encounter
--- OUTSIDE RECORDS SUMMARY | 2025-04-09 11:58 | XMS_ITS | Encounter Summary ---
Author Organization [facility] and [facility] Address [address] [place] [address] Care Team Providers Care Test Director Name Role Phone Caitlyn Bowie MD Primary Care Provider +1- [phone] Encounter Details Date Type Department Care Team (Late st Contact Info) Description 01/30/2019 Scanned Document [facility] Health Information Management [address] [place] [address] External, Provider Social History Tobacco Use Types [...] at [facility] 240 [facility] Building [address] [place] [address] Ronald Mills MD [address] [place] [address] [address] [place] [address] documented as of this encounter [...] as of this encounter Care Teams Test Director Relationship Specialty Start Date End Date Caitlyn Bowie MD 3400 [facility] 1 [place] [address] PCP - General Internal Medicine 05/06/21 Henry Kelly MD Pulmonary Department 175 [facility], [address] [place] [address] Physician Pulmonary Disease 09/06/17 06/22/20 documented as of this encounter
--- OUTSIDE RECORDS SUMMARY | 2025-04-09 11:58 | XMS_ITS | Encounter Summary ---
Author Organization [facility] and [facility] Address [address] [place] [address] Care Team Providers Care Physical Geographer Name Role Phone Caitlyn Bowie MD Primary Care Provider +1- [phone] Encounter Details Date Type Department Care Team (Late st Contact Info) Description 01/28/2019 Scanned Document [facility] Health Information Management [address] [place] [address] External, Provider Social History Tobacco Use Types [...] [facility] 240 [facility] Building [address] [place] [address] Ronald Mills MD [address] [place] [address] [address] [place] [address] documented as of this encounter Visit Diagnoses Not on filedocumented in this encounter Additional Health Concerns Infection Onset Date Last Indicated Resolved Time COVID-19 03/05/2022 03/05/2022 03/15/2022 7:18 PM EDT Assessment Noted Time PHQ-9 Depression Total Score: 2 11/07/19 19 2:06 PM EDT documented as of this encounter Care Teams Physical Geographer Relationship Specialty Start Date End Date Caitlyn Bowie MD 3400 [facility] 1 [place] [address] PCP - General Internal Medicine 05/06/21 Henry Kelly MD Pulmonary Department 175 [facility], [address] [place] [address] Physician Pulmonary Disease 09/06/17 06/22/20 documented as of this encounter
--- OUTSIDE RECORDS SUMMARY | 2025-04-09 11:58 | XMS_ITS | Encounter Summary ---
Author Organization [facility] Address [address] [place] [address] Care Team Providers Care Aerotriangulation Specialist Name Role Phone Caitlyn Bowie MD Primary Care Provider +1- [phone] Encounter Details Date Type Department Care Team (Late st Contact Info) Description 01/09/2019 Scanned Document [facility] Health Information Management [address] [place] [address] External, Provider Social History Tobacco Use Types [...] [facility] 240 [facility] Building [address] [place] [address] Ronald Mills MD [address] [place] [address] [address] [place] [address] documented as of this encounter [...] documented as of this encounter Care Teams Aerotriangulation Specialist Relationship Specialty Start Date End Date Caitlyn Bowie MD 3400 [facility] 1 [place] [address] PCP - General Internal Medicine 05/06/21 Henry Kelly MD Pulmonary Department 175 [facility], [address] [place] [address] Physician Pulmonary Disease 09/06/17 06/22/20 documented as of this encounter
--- OUTSIDE RECORDS SUMMARY | 2025-04-09 11:58 | XMS_ITS | Encounter Summary ---
Author Organization [facility] and [facility] Address [address] [place] [address] Care Team Providers Care Cash Shortage Investigator Name Role Phone Caitlyn Bowie MD Primary Care Provider +1- [phone] Encounter Details Date Type Department Care Team (Late st Contact Info) Description 02/08/2016 Scanned Document [facility] Health Information Management [address] [place] [address] External, Provider Social History Tobacco Use Types [...] [facility] 240 [facility] Building [address] [place], [place] [phone] Ronald Mills MD 240 [facility] A1 [place] [address] documented as of this encounter Visit Diagnoses Not on filedocumented in this encounter Additional Health Concerns Infection Onset Date Last Indicated Resolved Time COVID-19 03/05/2022 03/05/2022 03/15/2022 7:18 PM EDT documented as of this encounter Care Teams Cash Shortage Investigator Relationship Specialty Start Date End Date Caitlyn Bowie MD 3400 [facility] 1 [place] [address] PCP - General Internal Medicine 05/06/21 Henry Kelly MD Pulmonary Department 175 [facility], [address] [place] [address] Physician Pulmonary Disease 09/06/17 06/22/20 documented as of this encounter
--- OUTSIDE RECORDS SUMMARY | 2025-04-09 11:58 | XMS_ITS | Encounter Summary ---
Author Organization [facility] and [facility] Address [address] [place] [address] Care Team Providers Care Human Resources Psychologist Name Role Phone Caitlyn Bowie MD Primary Care Provider +1- [phone] Encounter Details Date Type Department Care Team (Late st Contact Info) Description 02/06/2019 Scanned Document [facility] Health Information Management [address] [place] [address] External, Provider Social History Tobacco Use Types [...] at [facility] 240 [facility] Building [address] [place] [address] Ronald Mills MD [address] [place] [address] [address] [place] [address] documented as of this [...] of this encounter Care Teams Human Resources Psychologist Relationship Specialty Start Date End Date Caitlyn Bowie MD 3400 [facility] 1 [place] [address] PCP - General Internal Medicine 05/06/21 Henry Kelly MD Pulmonary Department 175 [facility], [address] [place] [address] Physician Pulmonary Disease 09/06/17 06/22/20 documented as of this encounter
--- OUTSIDE RECORDS SUMMARY | 2025-04-09 11:58 | XMS_ITS | Encounter Summary ---
Author Organization [facility] Address [address] [place] [address] Care Team Providers Care Checker Cashier Name Role Phone Caitlyn Bowie MD Primary Care Provider +1- [phone] Encounter Details Date Type Department Care Team (Late st Contact Info) Description 03/16/2021 Scanned Document INTERFACE DEFAULT [address] [place] [address] System, Provider Not In Social History Tobacco [...] at [facility] 240 [facility] Building [address] [place] [address] Ronald Mills MD [address] [place] [address] [address] [place] [address] documented as of this encounter Visit Diagnoses Not on filedocumented in this encounter Additional Health Concerns Infection Onset Date Last Indicated Resolved Time COVID-19 03/05/2022 03/05/2022 03/15/2022 7:18 PM EDT Assessment Noted Time PHQ-9 Depression Total Score: 2 11/07/19 19 2:06 PM EDT documented as of this encounter Care Teams Checker Cashier Relationship Specialty Start Date End Date Caitlyn Bowie MD [address] [address] PCP - General Internal Medicine 05/06/21 documented as of this encounter
--- OUTSIDE RECORDS SUMMARY | 2025-04-09 11:58 | XMS_ITS | Encounter Summary ---
Author Organization [facility] Address [address] [place] [address] Care Team Providers Care Senior Supply Chain Analyst Name Role Phone Caitlyn Bowie MD Primary Care Provider +1- [phone] Encounter Details Date Type Department Care Team (Late st Contact Info) Description 04/02/2021 Scanned Document INTERFACE DEFAULT [address] [place] [address] System, Provider Not In Social History Tobacco [...] [facility] 240 [facility] Building [address] [place], [place] [address] Ronald Mills MD [address] [place] [address] [address] [place] [address] documented as of this encounter [...] as of this encounter Care Teams Senior Supply Chain Analyst Relationship Specialty Start Date End Date Caitlyn Bowie MD [address] [address] PCP - General Internal Medicine 05/06/21 documented as of this encounter
--- OUTSIDE RECORDS SUMMARY | 2025-04-09 11:58 | XMS_ITS | Encounter Summary ---
Author Organization [facility] Address [address] [place] [address] Care Team Providers Care Sign Painter Helper Name Role Phone Caitlyn Bowie MD Primary Care Provider +1- [phone] Encounter Details Date Type Department Care Team (Late st Contact Info) Description 12/28/2018 Scanned Document [facility] Health Information Management [address] [place] [address] External, Provider Social History Tobacco Use Types [...] 240 [facility] Building [address] [place] [address] Ronald Mills MD [address] [place] [address] [address] [place] [address] documented as of this [...] as of this encounter Care Teams Sign Painter Helper Relationship Specialty Start Date End Date Caitlyn Bowie MD 3400 [facility] Max 1 [place] [address] PCP - General Internal Medicine 05/06/21 Henry Kelly MD Pulmonary Department 175 [facility], [address] [place] [address] Physician Pulmonary Disease 09/06/17 06/22/20 documented as of this encounter
--- OUTSIDE RECORDS SUMMARY | 2025-04-09 11:58 | XMS_ITS | Encounter Summary ---
Author Organization [facility] and [facility] Address [address] [place] [address] Care Team Providers Care Order Booker Name Role Phone Caitlyn Bowie MD Primary Care Provider +1- [phone] Encounter Details Date Type Department Care Team (Late st Contact Info) Description 01/13/2019 Scanned Document [facility] Health Information Management [address] [place] [address] External, Provider Social History Tobacco Use Types [...] [facility] 240 [facility] Building [address] [place] [address] Ronald Mills MD [address] [place] [address] [address]1 [place] [address] documented as of this encounter [...] as of this encounter Care Teams Order Booker Relationship Specialty Start Date End Date Caitlyn Bowie MD 3400 [facility] 1 [place] [address] PCP - General Internal Medicine 05/06/21 Henry Kelly MD Pulmonary Department 175 [facility], [address] [place] [address] Physician Pulmonary Disease 09/06/17 06/22/20 documented as of this encounter
--- OUTSIDE RECORDS SUMMARY | 2025-04-09 11:58 | XMS_ITS | Encounter Summary ---
Author Organization [facility] and [facility] Address [address] [place] [address] Care Team Providers Care Decision Support Analyst Name Role Phone Caitlyn Bowie MD Primary Care Provider +1- [phone] Encounter Details Date Type Department Care Team (Late st Contact Info) Description 02/28/2021 Scanned Document INTERFACE DEFAULT [address] [place] [address] System, Provider Not In Social History Tobacco [...] [facility] 240 [facility] Building [address] [place] [address] Ronald Mills MD [address] [place] [address] [address] [place] [address] documented as of this encounter [...] documented as of this encounter Care Teams Decision Support Analyst Relationship Specialty Start Date End Date Caitlyn Bowie MD [address] [address] PCP - General Internal Medicine 05/06/21 documented as of this encounter
--- OUTSIDE RECORDS SUMMARY | 2025-04-09 11:58 | XMS_ITS | Encounter Summary ---
Author Organization [facility] and [facility] Address [address] [place] [address] Care Team Providers Care Bobbin Sorter Name Role Phone Caitlyn Bowie MD Primary Care Provider +1- [phone] Encounter Details Date Type Department Care Team (Late st Contact Info) Description 02/25/2021 Scanned Document INTERFACE DEFAULT [address] [place] [address] System, Provider Not In Social History Tobacco [...] [facility] Building [address] [place] [address] Ronald Mills MD [address] [place] [address] [address] [place] [address] documented as of this encounter [...] End Date Caitlyn Bowie MD [address] [address] PCP - General Internal Medicine 05/06/21 documented as of this encounter
--- OUTSIDE RECORDS SUMMARY | 2025-04-09 11:58 | XMS_ITS | Encounter Summary ---
Author Organization [facility] and [facility] Address [address] [place] [address] Care Team Providers Care Process Steward Name Role Phone Caitlyn Bowie MD Primary Care Provider +1- [phone] Encounter Details Date Type Department Care Team (Late st Contact Info) Description 03/23/2021 Scanned Document INTERFACE DEFAULT [address] [place] [address] System, Provider Not In Social History Tobacco [...] [facility] 240 [facility] Building [address] [place] [address] Ronald Mills MD [address] [place] [address] [address] [place] [address] documented as of this encounter [...] as of this encounter Care Teams Process Steward Relationship Specialty Start Date End Date Caitlyn Bowie MD [address] [address] PCP - General Internal Medicine 05/06/21 documented as of this encounter
--- OUTSIDE RECORDS SUMMARY | 2025-04-09 11:58 | XMS_ITS | Encounter Summary ---
Author Organization [facility] Address [address] [place] [address] Care Team Providers Care Supervisor Histology Name Role Phone Caitlyn Bowie MD Primary Care Provider +1- [phone] Encounter Details Date Type Department Care Team (Late st Contact Info) Description 10/16/[address] [facility] [address] [place] [address], 2nd floor [facility], [address] [place], [place] [address] Suzy Kong MD [address] [place] [address] Social History Tobacco Use Types Packs/Day [...] PM EDT Tele[facility] at [address] [place] [address] Ronald Mills MD 240 [facility] A1 [place] [address] documented as of this encounter Visit Diagnoses Not on filedocumented in this encounter Additional Health Concerns Infection Onset Date Last Indicated Resolved Time COVID-19 03/05/2022 03/05/2022 03/15/2022 7:18 PM EDT documented as of this encounter Care Teams Supervisor Histology Relationship Specialty Start Date End Date Caitlyn Bowie MD 3400 [facility] Max 1 [place] [address] PCP - General Internal Medicine 05/06/21 Henry Kelly MD Pulmonary Department 175 [facility], [address] [place] [address] Physician Pulmonary Disease 09/06/17 06/22/20 documented as of this encounter
--- OUTSIDE RECORDS SUMMARY | 2025-04-09 11:58 | XMS_ITS | Encounter Summary ---
Author Organization [facility] and [facility] Address [address] [place] [address] Care Team Providers Care Mate Chief Name Role Phone Caitlyn Bowie MD Primary Care Provider +1- [phone] Encounter Details Date Type Department Care Team (Late st Contact Info) Description 04/10/2021 Scanned Document INTERFACE DEFAULT [address] [place] [address] System, Provider Not In Social History Tobacco [...] [facility] 240 [facility] Building [address] [place] [address] Ronald Mills MD [address] [place] [address] [address] [place] [address] documented as of this encounter [...] as of this encounter Care Teams Mate Chief Relationship Specialty Start Date End Date Caitlyn Bowie MD [address] [address] PCP - General Internal Medicine 05/06/21 documented as of this encounter
--- OUTSIDE RECORDS SUMMARY | 2025-04-09 11:58 | XMS_ITS | Encounter Summary ---
Author Organization [facility] Address [address] [place] [address] Care Team Providers Care Peanut Sheller Name Role Phone Caitlyn Bowie MD Primary Care Provider +1- [phone] Encounter Details Date Type Department Care Team (Late st Contact Info) Description 02/08/2021 Scanned Document INTERFACE DEFAULT [address] [place] [address] System, Provider Not In Social History Tobacco [...] at [facility] 240 [facility] Building [address] [place] [address] Ronald Mills MD [address] [place] [address] [address] [place] [address] documented as of this encounter Visit Diagnoses Not on filedocumented in this encounter Additional Health Concerns Infection Onset Date Last Indicated Resolved Time COVID-19 03/05/2022 03/05/2022 03/15/2022 7:18 PM EDT Assessment Noted Time PHQ-9 Depression Total Score: 2 11/07/19 19 2:06 PM EDT documented as of this encounter Care Teams Peanut Sheller Relationship Specialty Start Date End Date Caitlyn Bowie MD [address] [address] PCP - General Internal Medicine 05/06/21 documented as of this encounter
--- OUTSIDE RECORDS SUMMARY | 2025-04-09 11:58 | XMS_ITS | Encounter Summary ---
Author Organization [facility] and [facility] Address [address] [place] [address] Care Team Providers Care Boiler Testing Technician Name Role Phone Caitlyn Bowie MD Primary Care Provider +1- [phone] Encounter Details Date Type Department Care Team (Late st Contact Info) Description 11/29/2017 Scanned Document [facility] Health Information Management [address] [place] [address] External, Provider Social History Tobacco Use Types [...] [facility] 240 [facility] Building [address] [place], [place] [address] Ronald Mills MD [address] [place] [address] [address] [place] [address] documented as of this encounter [...] as of this encounter Care Teams Boiler Testing Technician Relationship Specialty Start Date End Date Caitlyn Bowie MD 3400 [facility] 1 [place] [address] PCP - General Internal Medicine 05/06/21 Henry Kelly MD Pulmonary Department 175 [facility], [address] [place] [address] Physician Pulmonary Disease 09/06/17 06/22/20 documented as of this encounter
--- OUTSIDE RECORDS SUMMARY | 2025-04-09 11:58 | XMS_ITS | Encounter Summary ---
Author Organization [facility] and [facility] Address [address] [place] [address] Care Team Providers Care Cut File Clerk Name Role Phone Caitlyn Bowie MD Primary Care Provider +1- [phone] Encounter Details Date Type Department Care Team (Late st Contact Info) Description 01/07/2014 Documentation [facility] [address] [place] [address] Shilpi Ibarra [address] [place] [address] Social History Tobacco Use Types Packs/Day Years [...] [facility] at [facility] 240 [facility] Building [address] [place], [place] [address] Ronald [place] MD [address] [place] [address] documented as of this encounter Visit Diagnoses Not on filedocumented in this encounter Additional Health Concerns Infection Onset Date Last Indicated Resolved Time COVID-19 03/05/2022 03/05/2022 03/15/2022 7:18 PM EDT documented as of this encounter Care Teams Cut File Clerk Relationship Specialty Start Date End Date Caitlyn Bowie MD [address] [place] [address] PCP - General Internal Medicine 05/06/21 Henry Kelly MD Pulmonary Department 175 [facility], [address] [place] [address] Physician Pulmonary Disease 09/06/17 06/22/20 documented as of this encounter
--- OUTSIDE RECORDS SUMMARY | 2025-04-09 11:58 | XMS_ITS | Encounter Summary ---
Author Organization [facility] and [facility] Address [address] [place] [address] Care Team Providers Care Lens Molding Equipment Operator Name Role Phone Caitlyn Bowie MD Primary Care Provider +1- [phone] Encounter Details Date Type Department Care Team (Late st Contact Info) Description 01/28/2019 Scanned Document Cardiovascular Medicine at [address] [place] [address] Cristian Arreguin MBBS [address] [place] [address] Social History Tobacco Use Types [...] PM EDT Telemedicine Cancer Center at [address] [place] [address] Ronald [place] MD [address] [place] [address] [address]1 [place] [address] documented as of this encounter Visit Diagnoses Not on filedocumented in this encounter Additional Health Concerns Infection Onset Date Last Indicated Resolved Time COVID-19 03/05/2022 03/05/2022 03/15/2022 7:18 PM EDT Assessment Noted Time PHQ-9 Depression Total Score: 2 11/07/19 19 2:06 PM EDT documented as of this encounter Care Teams Lens Molding Equipment Operator Relationship Specialty Start Date End Date Caitlyn Bowie MD 3400 [facility] 1 [place] [address] PCP - General Internal Medicine 05/06/21 Henry Kelly MD Pulmonary Department [address] [place] [address], [address] [place] [address] Physician Pulmonary Disease 09/06/17 06/22/20 documented as of this encounter
--- OUTSIDE RECORDS SUMMARY | 2025-04-09 11:58 | XMS_ITS | Encounter Summary ---
Author Organization [facility] and [facility] Address [address] [place] [address] Care Team Providers Care Health Diagnostics Teacher Name Role Phone Caitlyn Bowie MD Primary Care Provider +1- [phone] Encounter Details Date Type Department Care Team (Late st Contact Info) Description 01/26/2018 Scanned Document [facility] Health Information Management [address] [place] [address] External, Provider Social History Tobacco Use Types [...] [facility] 240 [facility] Building [address] [place], [place] [phone] Ronald [place] MD 240 [facility] A1 [place] [address] documented as of this encounter Visit Diagnoses Not on filedocumented in this encounter Additional Health Concerns Infection Onset Date Last Indicated Resolved Time COVID-19 03/05/2022 03/05/2022 03/15/2022 7:18 PM EDT documented as of this encounter Care Teams Health Diagnostics Teacher Relationship Specialty Start Date End Date Caitlyn Bowie MD 3400 [facility] 1 [place] [address] PCP - General Internal Medicine 05/06/21 Henry Kelly MD Pulmonary Department 175 [facility], [address] [place] [address] Physician Pulmonary Disease 09/06/17 06/22/20 documented as of this encounter
--- OUTSIDE RECORDS SUMMARY | 2025-04-09 11:58 | XMS_ITS | Encounter Summary ---
Author Organization [facility] and [facility] Address [address] [place] [address] Care Team Providers Care Telephonic Nurse Name Role Phone Caitlyn Bowie MD Primary Care Provider +1- [phone] Reason for Visit * Reason Onset Date Comments Advice Only 04/05/2025 Encounter Details Date Type Department Care Team ([facility] st Contact Info) Description 04/05/2025 Telephone CLINICAL APPEALS AUDITOR [address] [facility] [address] [place] [address] Mary Pan MD [address] [place] [address] Advice Only Social History Tobacco Use Types [...] encounter Miscellaneous Notes * Telephone Encounter - Mary Pan MD - 04/05/2025 8:15 PM EDT Jovana J Helena called in to report that she noted a buise/ hematoma on the arm where she was holding the strap for her oxygen tank. She denied fall or trauma. She bruises easily everywhere and she was concerned about her warfarin. She put ice packs on her arm and the bruising is improved, denies any arm pain, numbness or bleeding. She has appt with coumadin clinic on Monday. I reassured her that the bruising is localized she should continue her coumadin and continue to monitor the bruise site.(mainly due to her INR range has been hard to keep with in the therapettic range and if she misses a dose, would make it hard to keep in range). She agrees with plan of care and would call back if any additional issue. Will ask Dr Ronald [place]'s team could check on her on Monday for follow up. Mary Pan MD Hematology/ Oncology Fellow documented in this encounter Plan of Treatment Upcoming Encounters Date Type Department Care Team (Late st Contact Info) Description 04/25/2025 4:00 PM EDT Telemedicine [facility] at [facility] 240 [facility] Building [address] [place], [place] [address] Ronald [place] MD 240 [facility] A1 [place] [address] documented as of this encounter Visit Diagnoses Not on filedocumented in this encounter Additional Health Concerns Assessment Noted Time PHQ-9 Depression Total Score: 2 11/07/19 19 2:06 PM EDT documented as of this encounter Care Teams Telephonic Nurse Relationship Specialty Start Date End Date Caitlyn Bowie MD [address] [address] PCP - General Internal Medicine 05/06/21 documented as of this encounter
--- OUTSIDE RECORDS SUMMARY | 2025-04-09 11:58 | XMS_ITS | Encounter Summary ---
Author Organization [facility] and [facility] Address [address] [place] [address] Care Team Providers Care Glassware Selector Name Role Phone Caitlyn Bowie MD Primary Care Provider +1- [phone] Encounter Details Date Type Department Care Team (Late st Contact Info) Description 03/11/2021 Scanned Document INTERFACE DEFAULT [address] [place] [address] System, Provider Not In Social History Tobacco [...] [facility] at [facility] 240 [facility] Building [address] [place], [place] [phone] Ronald [place] MD [address] [place] [address] [address] [place] [address] documented as of this encounter [...] as of this encounter Care Teams Glassware Selector Relationship Specialty Start Date End Date Caitlyn Bowie MD [facility] [address] [address] PCP - General Internal Medicine 05/06/21 documented as of this encounter
--- OUTSIDE RECORDS SUMMARY | 2025-04-09 11:58 | XMS_ITS | Encounter Summary ---
Author Organization [facility] and [facility] Address [address] [place] [address] Care Team Providers Care Director Of Hospitality Name Role Phone Caitlyn Bowie MD Primary Care Provider +1- [phone] Encounter Details Date Type Department Care Team (Late st Contact Info) Description 01/02/2019 Scanned Document [facility] Health Information Management [address] [place] [address] External, Provider Social History Tobacco Use Types [...] [facility] 240 [facility] Building [address] [place] [address] Ronald [place] MD [address] [place] [address] [address] [place] [address] documented as of this encounter [...] of this encounter Care Teams Director Of Hospitality Relationship Specialty Start Date End Date Caitlyn Bowie MD 3400 [facility] 1 [place] [address] PCP - General Internal Medicine 05/06/21 Henry Kelly MD Pulmonary Department 175 [facility], [address] [place] [address] Physician Pulmonary Disease 09/06/17 06/22/20 documented as of this encounter
--- OUTSIDE RECORDS SUMMARY | 2025-04-09 11:58 | XMS_ITS | Encounter Summary ---
Author Organization [facility] and [facility] Address [address] [place] [address] Care Team Providers Care Process Validation Engineer Name Role Phone Caitlyn Bowie MD Primary Care Provider +1- [phone] Encounter Details Date Type Department Care Team (Late st Contact Info) Description 01/26/2018 Scanned Document [facility] Health Information Management [address] [place] [address] External, Provider Social History Tobacco Use Types [...] [facility] Building [address] [place], [place] [address] Ronald [place] MD [address] [place] [address] [address]1 [place] [address] documented as [...] as of this encounter Care Teams Process Validation Engineer Relationship Specialty Start Date End Date Caitlyn Bowie MD 3400 [facility] 1 [place] [address] PCP - General Internal Medicine 05/06/21 Henry Kelly MD Pulmonary Department 175 [facility], [address] [place] [address] Physician Pulmonary Disease 09/06/17 06/22/20 documented as of this encounter
--- OUTSIDE RECORDS SUMMARY | 2025-04-09 11:58 | XMS_ITS | Encounter Summary ---
Author Organization [facility] and [facility] Address [address] [place] [address] Care Team Providers Care Business Administrator Name Role Phone Caitlyn Bowie MD Primary Care Provider +1- [phone] Encounter Details Date Type Department Care Team (Late st Contact Info) Description 03/24/2021 Scanned Document INTERFACE DEFAULT [address] [place] [address] System, Provider Not In Social History Tobacco [...] [facility] 240 [facility] Building [address] [place] [address] Ronald [place] MD [address] [place] [address] [address]1 [place] [address] documented as of this encounter Visit Diagnoses Not on filedocumented in this encounter Additional Health Concerns Infection Onset Date Last Indicated Resolved Time COVID-19 03/05/2022 03/05/2022 03/15/2022 7:18 PM EDT Assessment Noted Time PHQ-9 Depression Total Score: 2 11/07/19 19 2:06 PM EDT documented as of this encounter Care Teams Business Administrator Relationship Specialty Start Date End Date Caitlyn Bowie MD [address] [address] PCP - General Internal Medicine 05/06/21 documented as of this encounter
--- OUTSIDE RECORDS SUMMARY | 2025-04-09 11:58 | XMS_ITS | Encounter Summary ---
Author Organization [facility] and [facility] Address [address] [place] [address] Care Team Providers Care Cattle Broker Name Role Phone Caitlyn Bowie MD Primary Care Provider +1- [phone] Encounter Details Date Type Department Care Team (Late st Contact Info) Description 03/22/2021 Scanned Document INTERFACE DEFAULT [address] [place] [address] System, Provider Not In Social History Tobacco [...] [facility] 240 [facility] Building [address] [place] [address] Ronald [place] MD [address] [place] [address] [address] [place] [address] documented as of this encounter Visit Diagnoses Not on filedocumented in this encounter Additional Health Concerns Infection Onset Date Last Indicated Resolved Time COVID-19 03/05/2022 03/05/2022 03/15/2022 7:18 PM EDT Assessment Noted Time PHQ-9 Depression Total Score: 2 11/07/19 19 2:06 PM EDT documented as of this encounter Care Teams Cattle Broker Relationship Specialty Start Date End Date Caitlyn Bowie MD [address] [address] PCP - General Internal Medicine 05/06/21 documented as of this encounter
--- OUTSIDE RECORDS SUMMARY | 2025-04-09 11:58 | XMS_ITS | Encounter Summary ---
Author Organization [facility] and [facility] Address [address] [place] [address] Care Team Providers Care Roll Builder Name Role Phone Caitlyn Bowie MD Primary Care Provider +1- [phone] Encounter Details Date Type Department Care Team (Late st Contact Info) Description 02/24/2021 Scanned Document INTERFACE DEFAULT [address] [place] [address] System, Provider Not In Social History Tobacco [...] [facility] 240 [facility] Building [address] [place] [address] Ronald [place] MD [address] [place] [address] [address] [place] [address] documented as of this encounter [...] as of this encounter Care Teams Roll Builder Relationship Specialty Start Date End Date Caitlyn Bowie MD [address] [address] PCP - General Internal Medicine 05/06/21 documented as of this encounter
--- OUTSIDE RECORDS SUMMARY | 2025-04-09 11:58 | XMS_ITS | Encounter Summary ---
Author Organization [facility] and [facility] Address [address] [place] [address] Care Team Providers Care Getter Operator Name Role Phone Caitlyn Bowie MD Primary Care Provider +1- [phone] Encounter Details Date Type Department Care Team (Late st Contact Info) Description 02/07/2021 Scanned Document INTERFACE DEFAULT [address] [place] [address] System, Provider Not In Social History Tobacco [...] [facility] 240 [facility] Building [address] [place], [place] [address] Ronald [place] MD [address] [place] [address] [address] [place] [address] documented as of this encounter [...] documented as of this encounter Care Teams Getter Operator Relationship Specialty Start Date End Date Caitlyn Bowie MD [address] [address] PCP - General Internal Medicine 05/06/21 documented as of this encounter
--- OUTSIDE RECORDS SUMMARY | 2025-04-09 11:58 | XMS_ITS | Encounter Summary ---
Author Organization [facility] and [facility] Address [address] [place] [address] Care Team Providers Care Rn Discharge Name Role Phone Caitlyn Bowie MD Primary Care Provider +1- [phone] Encounter Details Date Type Department Care Team (Late st Contact Info) Description 02/11/2021 Scanned Document INTERFACE DEFAULT [address] [place] [address] System, Provider Not In Social History Tobacco [...] [facility] 240 [facility] Building [address] [place] [address] Ronald [place] MD [address] [place] [address] [address] [place] [address] documented as of this encounter [...] as of this encounter Care Teams Rn Discharge Relationship Specialty Start Date End Date Caitlyn Bowie MD [address] [address] PCP - General Internal Medicine 05/06/21 documented as of this encounter
--- OUTSIDE RECORDS SUMMARY | 2025-04-09 11:58 | XMS_ITS | Encounter Summary ---
Author Organization [facility] and [facility] Address [address] [place] [address] Care Team Providers Care Office Support Associate Name Role Phone Caitlyn Bowie MD Primary Care Provider +1- [phone] Encounter Details Date Type Department Care Team (Late st Contact Info) Description 12/27/2018 Scanned Document [facility] Health Information Management [address] [place] [address] External, Provider Social History Tobacco Use [...] Center at [facility] 240 [facility] Building [address] [place] [address] Ronald [place] MD [address] [place] [address] [address]1 [place] [address] documented as of this encounter [...] as of this encounter Care Teams Office Support Associate Relationship Specialty Start Date End Date Caitlyn Bowie MD 3400 [facility] 1 [place] [address] PCP - General Internal Medicine 05/06/21 Henry Kelly MD Pulmonary Department 175 [facility], [address] [place] [address] Physician Pulmonary Disease 09/06/17 06/22/20 documented as of this encounter
--- OUTSIDE RECORDS SUMMARY | 2025-04-09 11:58 | XMS_ITS | Encounter Summary ---
Author Organization [facility] and [facility] Address 20 [place] [address] Care Team Providers Care Hairspring Truing Inspector Name Role Phone Caitlyn Bowie MD Primary Care Provider +1- [phone] Encounter Details Date Type Department Care Team (Late st Contact Info) Description 10/07/2013 Scanned Document Thoracic Oncology Program at [address] [address] Suzy Kong MD [address] [place] [address] Social History Tobacco Use Types Packs/Day [...] [facility] 240 [facility] Building [address] [place], [place] [phone] Ronald [place] MD 240 [facility] A1 [place] [address] documented as of this encounter Visit Diagnoses Not on filedocumented in this encounter Additional Health Concerns Infection Onset Date Last Indicated Resolved Time COVID-19 03/05/2022 03/05/2022 03/15/2022 7:18 PM EDT documented as of this encounter Care Teams Hairspring Truing Inspector Relationship Specialty Start Date End Date Caitlyn Bowie MD 3400 [facility] Max 1 [place] [address] PCP - General Internal Medicine 05/06/21 Henry Kelly MD Pulmonary Department 175 [facility], [address] [place] [address] Physician Pulmonary Disease 09/06/17 06/22/20 documented as of this encounter
--- OUTSIDE RECORDS SUMMARY | 2025-04-09 11:58 | XMS_ITS | Encounter Summary ---
Author Organization [facility] and [facility] Address [address] [place] [address] Care Team Providers Care Medical Underwriter Name Role Phone Caitlyn Bowie MD Primary Care Provider +1- [phone] Encounter Details Date Type Department Care Team (Late st Contact Info) Description 01/17/2019 Scanned Document [facility] Health Information Management [address] [place] [address] External, Provider Social History Tobacco Use Types [...] at [facility] 240 [facility] Building [address] [place] [address] Ronald [place] MD [address] [place] [address] [address]1 [place] [address] documented as of this encounter [...] Caitlyn Bowie MD 3400 [facility] 1 [place] [address] PCP - General Internal Medicine 05/06/21 Henry Kelly MD Pulmonary Department 175 [facility], [address] [place] [address] Physician Pulmonary Disease 09/06/17 06/22/20 documented as of this encounter
--- OUTSIDE RECORDS SUMMARY | 2025-04-09 11:58 | XMS_ITS | Encounter Summary ---
Author Organization [facility] Address [address] [place] [address] Care Team Providers Care Stencil Printer Name Role Phone Caitlyn Bowie MD Primary Care Provider +1- [phone] Encounter Details Date Type Department Care Team (Late st Contact Info) Description 03/15/2021 Scanned Document INTERFACE DEFAULT [address] [place] [address] System, Provider Not In Social History Tobacco [...] [facility] 240 [facility] Building [address] [place], [place] [address] Ronald [place] MD [address] [place] [address] [address] [place] [address] documented as of this encounter [...] as of this encounter Care Teams Stencil Printer Relationship Specialty Start Date End Date Caitlyn Bowie MD [facility] [address] [address] PCP - General Internal Medicine 05/06/21 documented as of this encounter
--- OUTSIDE RECORDS SUMMARY | 2025-04-09 11:58 | XMS_ITS | Encounter Summary ---
Author Organization [facility] Address [address] [place] [place] [address] Care Team Providers Care Sales Assistants And Salespersons Name Role Phone Caitlyn Bowie MD Primary Care Provider +1- [phone] Encounter Details Date Type Department Care Team (Late st Contact Info) Description 08/23/2017 Scanned Document [facility] Health Information Management [address] [place] [address] External, Provider Social History Tobacco Use Types [...] [facility] Center at [facility] 240 [facility] Building [address] [place], [place] [address] Ronald [place] MD [address] [place] [address] [address] [place] [address] documented as of this [...] as of this encounter Care Teams Sales Assistants And Salespersons Relationship Specialty Start Date End Date Caitlyn Bowie MD 3400 [facility] 1 [place] [address] PCP - General Internal Medicine 05/06/21 Henry Kelly MD Pulmonary Department 175 [facility], [address] [place] [address] Physician Pulmonary Disease 09/06/17 06/22/20 documented as of this encounter
--- OUTSIDE RECORDS SUMMARY | 2025-04-09 11:58 | XMS_ITS | Encounter Summary ---
Author Organization [facility] Address [address] [place] [address] Care Team Providers Care Lsw Name Role Phone Caitlyn Bowie MD Primary Care Provider +1- [phone] Encounter Details Date Type Department Care Team (Late st Contact Info) Description 03/14/2021 Scanned Document INTERFACE DEFAULT [address] [place] [address] System, Provider Not In Social History Tobacco [...] [facility] 240 [facility] Building [address] [place], [place] [address] Ronald [place] MD [address] [place] [address] [address] [place] [address] [...] documented as of this encounter Care Teams Lsw Relationship Specialty Start Date End Date Caitlyn Bowie MD [address] [address] PCP - General Internal Medicine 05/06/21 documented as of this encounter
--- OUTSIDE RECORDS SUMMARY | 2025-04-09 11:58 | XMS_ITS | Encounter Summary ---
Author Organization [facility] and [facility] Address [address] [place] [address] Care Team Providers Care Cell Room Supervisor Name Role Phone Caitlyn Bowie MD Primary Care Provider +1- [phone] Encounter Details Date Type Department Care Team (Late st Contact Info) Description 02/15/2021 Scanned Document INTERFACE DEFAULT [address] [place] [address] System, Provider Not In Social History Tobacco [...] [facility] 240 [facility] Building [address] [place] [address] Ronald Mills MD [address] [place] [address] [address] [place] [address] documented as of this encounter Visit Diagnoses Not on filedocumented in this encounter Additional Health Concerns Infection Onset Date Last Indicated Resolved Time COVID-19 03/05/2022 03/05/2022 03/15/2022 7:18 PM EDT Assessment Noted Time PHQ-9 Depression Total Score: 2 11/07/19 19 2:06 PM EDT documented as of this encounter Care Teams Cell Room Supervisor Relationship Specialty Start Date End Date Caitlyn Bowie MD [address] [address] PCP - General Internal Medicine 05/06/21 documented as of this encounter
--- OUTSIDE RECORDS SUMMARY | 2025-04-09 11:59 | XMS_ITS | Encounter Summary ---
Author Organization [facility] and [facility] Address [address] [place] [address] Care Team Providers Care Controlled Area Checker Name Role Phone Caitlyn Bowie MD Primary Care Provider +1- [phone] Encounter Details Date Type Department Care Team (Late st Contact Info) Description 07/31/2015 Scanned Document [facility] Health Information Management [address] [place] [address] External, Provider Social History Tobacco Use Types [...] Center at [facility] 240 [facility] Building [address] [place], [place] [phone] Ronald Mills MD 240 [facility] Max [address] [place] [address] documented as of this encounter Procedures Procedure Name Priority Date/Time Associated Diagnosis Comments NUC MED/PET RESULT SCAN Routine 07/31/2015 documented in this encounter Results * Nuc Med/PET Result Scan (07/31/2015) us Provider External IMG SCAN REPORTS Edited Result - Final [facility] [place], [place], [facility] documented in this encounter Visit Diagnoses Not on filedocumented in this encounter Additional Health Concerns Infection Onset Date Last Indicated Resolved Time COVID-19 03/05/2022 03/05/2022 03/15/2022 7:1 8 PM EDT documented as of this encounter Care Teams Controlled Area Checker Relationship Specialty Start Date End Date Caitlyn Bowie MD 3400 [facility] 1 [place] [address] PCP - General Internal Medicine 05/06/21 Henry Kelly MD Pulmonary Department 175 [facility], [address] [place] [address] Physician Pulmonary Disease 09/06/17 06/22/20 documented as of this encounter
--- OUTSIDE RECORDS SUMMARY | 2025-04-09 11:59 | XMS_ITS | Encounter Summary ---
Author Organization [facility] and [facility] Address [address] [place] [address] Care Team Providers Care Knife Finisher Name Role Phone Caitlyn Bowie MD Primary Care Provider +1- [phone] Encounter Details Date Type Department Care Team ([facility] st Contact Info) Description 08/26/2014 Documentation [facility] [address] [place] [address] Shilpi Ibarra [address] [place] [address] Social History Tobacco Use Types Packs/Day Years [...] from the original note were not included. [facility] Progress Note This is a 69 y.o. female who was provided services by [facility]. Service Provided By:: Shilpi Ibarra Patient Status: return Length of Appointment: 60 minutes documented in this encounter Plan of Treatment Upcoming Encounters Date Type Department Care Team ([facility] st Contact Info) Description 04/25/2025 4:00 PM EDT Telemedicine [facility] at [facility] 240 [facility] Building [address] [place] [address] Ronald Mills MD 240 [facility] Max [address] [place] [address] documented as of this encounter Visit Diagnoses Not on filedocumented in this encounter Additional Health Concerns Infection Onset Date Last Indicated Resolved Time COVID-19 03/05/2022 03/05/2022 03/15/2022 7:18 PM EDT documented as of this encounter Care Teams Knife Finisher Relationship Specialty Start Date End Date Caitlyn Bowie MD 3400 [facility] 1 [place] [address] PCP - General Internal Medicine 05/06/21 Henry Kelly MD Pulmonary Department 175 [facility], [address] [place] [address] Physician Pulmonary Disease 09/06/17 06/22/20 documented as of this encounter
--- OUTSIDE RECORDS SUMMARY | 2025-04-09 11:59 | XMS_ITS | Encounter Summary ---
Author Organization [facility] and [facility] Address [address] [place] [address] Care Team Providers Care Student Assistant Name Role Phone Caitlyn Bowie MD Primary Care Provider +1- [phone] Encounter Details Date Type Department Care Team (Late st Contact Info) Description 02/02/2018 Scanned Document [facility] Health Information Management [address] [place] [address] External, Provider Social History Tobacco Use Types [...] [facility] Center at [facility] 240 [facility] Building [address] [place], [place] [phone] Ronald Mills MD 240 [facility] A1 [place] [address] documented as of this encounter Visit Diagnoses Not on filedocumented in this encounter Additional Health Concerns Infection Onset Date Last Indicated Resolved Time COVID-19 03/05/2022 03/05/2022 03/15/2022 7:18 PM EDT documented as of this encounter Care Teams Student Assistant Relationship Specialty Start Date End Date Caitlyn Bowie MD 3400 [facility] 1 [place] [address] PCP - General Internal Medicine 05/06/21 Henry Kelly MD Pulmonary Department 175 [facility], [address] [place] [address] Physician Pulmonary Disease 09/06/17 06/22/20 documented as of this encounter
--- OUTSIDE RECORDS SUMMARY | 2025-04-09 11:59 | XMS_ITS | Encounter Summary ---
Author Organization [facility] and [facility] Address [address] [place] [address] Care Team Providers Care Irrigation Equipment Installer Name Role Phone Caitlyn Bowie MD Primary Care Provider +1- [phone] Encounter Details Date Type Department Care Team (Late st Contact Info) Description 04/28/2015 Scanned Document [facility] Health Information Management [address] [place] [address] External, Provider Social History Tobacco Use Types [...] Cancer Center at [facility] 240 [facility] Building [address] [place], [place] [phone] Ronald Mills MD 240 [facility] A1 [place] [address] documented as of this encounter Visit Diagnoses Not on filedocumented in this encounter Additional Health Concerns Infection Onset Date Last Indicated Resolved Time COVID-19 03/05/2022 03/05/2022 03/15/2022 7:18 PM EDT documented as of this encounter Care Teams Irrigation Equipment Installer Relationship Specialty Start Date End Date Caitlyn Bowie MD 3400 [facility] 1 [place] [address] PCP - General Internal Medicine 05/06/21 Henry Kelly MD Pulmonary Department 175 [facility], [address] [place] [address] Physician Pulmonary Disease 09/06/17 06/22/20 documented as of this encounter
--- OUTSIDE RECORDS SUMMARY | 2025-04-09 11:59 | XMS_ITS | Encounter Summary ---
Author Organization [facility] and [facility] Address [address] [place] [address] Care Team Providers Care Inspector Welded Parts Name Role Phone Caitlyn Bowie MD Primary Care Provider +1- [phone] Encounter Details Date Type Department Care Team (Late st Contact Info) Description 12/21/2020 Scanned Document INTERFACE DEFAULT [address] [place] [address] System, Provider Not In Social History Tobacco [...] [facility] Building [address] [place] [address] Ronald Mills MD [address] [place] [address] [address]1 [place] [address] documented as of this encounter Visit Diagnoses Not on filedocumented in this encounter Additional Health Concerns Infection Onset Date Last Indicated Resolved Time COVID-19 03/05/2022 03/05/2022 03/15/2022 7:18 PM EDT Assessment Noted Time PHQ-9 Depression Total Score: 2 11/07/19 19 2:06 PM EDT documented as of this encounter Care Teams Inspector Welded Parts Relationship Specialty Start Date End Date Caitlyn Bowie MD [address] [address] PCP - General Internal Medicine 05/06/21 documented as of this encounter
--- OUTSIDE RECORDS SUMMARY | 2025-04-09 11:59 | XMS_ITS | Encounter Summary ---
Author Organization [facility] and [facility] Address [address] [place] [address] Care Team Providers Care Brine Plant Operator Name Role Phone Caitlyn Bowie MD Primary Care Provider +1- [phone] Encounter Details Date Type Department Care Team (Late st Contact Info) Description 01/26/2018 Scanned Document [facility] Health Information Management [address] [place] [address] External, Provider Social History Tobacco Use Types [...] [facility] 240 [facility] Building [address] [place] [address] Ronald Mills MD 240 [facility] A1 [place] [address] documented as of this encounter [...] documented as of this encounter Care Teams Brine Plant Operator Relationship Specialty Start Date End Date Caitlyn Bowie MD 3400 [facility] 1 [place] [address] PCP - General Internal Medicine 05/06/21 Henry Kelly MD Pulmonary Department 175 [facility], [address] [place] [address] Physician Pulmonary Disease 09/06/17 06/22/20 documented as of this encounter
--- OUTSIDE RECORDS SUMMARY | 2025-04-09 11:59 | XMS_ITS | Encounter Summary ---
Author Organization [facility] and [facility] Address [address] [place] [address] Care Team Providers Care Grid Maker Name Role Phone Caitlyn Bowie MD Primary Care Provider +1- [phone] Encounter Details Date Type Department Care Team (Late Contact Info) Description 01/27/2021 Scanned Document [facility] at [address] [address] External, Provider Social History Tobacco Use Types [...] [facility] 240 [facility] Building [address] [place], [place] [phone] Ronald Mills MD [address] [place] [address] [address] [place] [address] documented as of this [...] as of this encounter Care Teams Grid Maker Relationship Specialty Start Date End Date Caitlyn Bowie MD [address] [address] PCP - General Internal Medicine 05/06/21 documented as of this encounter
--- OUTSIDE RECORDS SUMMARY | 2025-04-09 11:59 | XMS_ITS | Encounter Summary ---
Author Organization [facility] and [facility] Address [address] [place] [address] Care Team Providers Care Assistant Front Desk Manager Name Role Phone Caitlyn Bowie MD Primary Care Provider +1- [phone] Encounter Details Date Type Department Care Team (Late st Contact Info) Description 09/09/2024 Scanned Document INTERFACE DEFAULT [address] [place] [address] System, Provider Not In Social History Tobacco [...] [facility] at [facility] 240 [facility] Building [address] [place], [place] [phone] Ronald Mills MD [address] [place] [address] [address]1 [place] [address] documented as of this encounter [...] as of this encounter Care Teams Assistant Front Desk Manager Relationship Specialty Start Date End Date Caitlyn Bowie MD [address] [address] PCP - General Internal Medicine 05/06/21 documented as of this encounter
--- OUTSIDE RECORDS SUMMARY | 2025-04-09 11:59 | XMS_ITS | Encounter Summary ---
Author Organization [facility] and [facility] Address [address] [place] [address] Care Team Providers Care Vb Net Developer Name Role Phone Caitlyn Bowie MD Primary Care Provider +1- [phone] Encounter Details Date Type Department Care Team (Late st Contact Info) Description 04/19/2024 Scanned Document INTERFACE DEFAULT [address] [place] [address] System, Provider Not In Social History Tobacco [...] – [facility] 240 [facility] Building [address] [place], [place] [phone] Ronald Mills MD [address] [place] [address] [address] [place] [address] documented [...] documented as of this encounter Care Teams Vb Net Developer Relationship Specialty Start Date End Date Caitlyn Bowie MD [address] [address] PCP - General Internal Medicine 05/06/21 documented as of this encounter
--- OUTSIDE RECORDS SUMMARY | 2025-04-09 11:59 | XMS_ITS | Encounter Summary ---
Author Organization [facility] and [facility] Address [address] [place] [address] Care Team Providers Care Service Control Operator Name Role Phone Caitlyn Bowie MD Primary Care Provider +1- [phone] Encounter Details Date Type Department Care Team (Late Contact Info) Description 02/03/2021 Scanned Document [facility] Health Information Management [address] [place] [address] External, Provider Social History Tobacco Use Types [...] [facility] Building [address] [place], [place] [phone] Ronald Mills MD [address] [place] [address] [address] [place] [address] documented as of this encounter [...] as of this encounter Care Teams Service Control Operator Relationship Specialty Start Date End Date Caitlyn Bowie MD [address] [address] PCP - General Internal Medicine 05/06/21 documented as of this encounter
--- OUTSIDE RECORDS SUMMARY | 2025-04-09 11:59 | XMS_ITS | Encounter Summary ---
Author Organization [facility] and [facility] Address [address] [place] [address] Care Team Providers Care Stock Clerk Name Role Phone Caitlyn Bowie MD Primary Care Provider +1- [phone] Reason for Visit * Reason Comments Other Encounter Details Date Type Department Care Team (Late st Contact Info) Description 01/12/2021 Telephone [facility] at [address] - [address] [phone] Ronald Mills MD [address] [place] [address] Other Social History Tobacco Use Types [...] AM EDT Lab orders were faxed to [facility] @ [phone]. Patient notified by phone. * Telephone Encounter - Kathleen Nasima - 01/12/2021 8:46 AM EDT Pt called looking to speak with Kirstin RE: lab orders sent to lab [facility] lab Looking to have labs sent there A.S.A.P at some point today She is scheduled with Dr. Mills on January 28 documented in this encounter Plan of Treatment Upcoming Encounters Date Type Department Care Team (Late st Contact Info) Description 04/25/2025 4:00 PM EDT Telemedicine Cancer Center at [facility] 240 [facility] Building [address] [place], [place] [phone] Ronald Mills MD 240 [facility] Max [address] [place] [address] documented as of this encounter Visit Diagnoses Not on filedocumented in this encounter Additional Health Concerns Infection Onset Date Last Indicated Resolved Time COVID-19 03/05/2022 03/05/2022 03/15/2022 7:18 PM EDT Assessment Noted Time PHQ-9 Depression Total Score: 2 11/07/19 19 2:06 PM EDT documented as of this encounter Care Teams Stock Clerk Relationship Specialty Start Date End Date Caitlyn Bowie MD [address] [address] PCP - General Internal Medicine 05/06/21 documented as of this encounter
--- OUTSIDE RECORDS SUMMARY | 2025-04-09 11:59 | XMS_ITS | Encounter Summary ---
Author Organization [facility] and [facility] Address [address] [place] [address] Care Team Providers Care Business Administration Teacher Name Role Phone Caitlyn Bowie MD Primary Care Provider +1- [phone] Encounter Details Date Type Department Care Team (Late st Contact Info) Description 04/23/2024 Scanned Document INTERFACE DEFAULT [address] [place] [address] System, Provider Not In Social History Tobacco [...] Center at [facility] 240 [facility] Building [address] [place], [place] [phone] Ronald Mills MD [address] [place] [address] [address] [place] [address] documented as of this encounter [...] as of this encounter Care Teams Business Administration Teacher Relationship Specialty Start Date End Date Caitlyn Bowie MD [address] [address] PCP - General Internal Medicine 05/06/21 documented as of this encounter
--- OUTSIDE RECORDS SUMMARY | 2025-04-09 11:59 | XMS_ITS | Encounter Summary ---
Author Organization [facility] and [facility] Address [address] [place] [address] Care Team Providers Care Quill Reamer Name Role Phone Caitlyn Bowie MD Primary Care Provider +1- [phone] Encounter Details Date Type Department Care Team (Late st Contact Info) Description 01/28/2018 Scanned Document [facility] Health Information Management [address] [place] [address] External, Provider Social History Tobacco Use Types [...] [facility] 240 [facility] Building [address] [place], [place] [phone] Ronald Mills MD 240 [facility] A1 [place] [address] documented as of this encounter Visit Diagnoses Not on filedocumented in this encounter Additional Health Concerns Infection Onset Date Last Indicated Resolved Time COVID-19 03/05/2022 03/05/2022 03/15/2022 7:18 PM EDT documented as of this encounter Care Teams Quill Reamer Relationship Specialty Start Date End Date Caitlyn Bowie MD 3400 [facility] 1 [place] [address] PCP - General Internal Medicine 05/06/21 Henry Kelly MD Pulmonary Department 175 [facility], [address] [place] [address] Physician Pulmonary Disease 09/06/17 06/22/20 documented as of this encounter
--- OUTSIDE RECORDS SUMMARY | 2025-04-09 11:59 | XMS_ITS | Encounter Summary ---
Author Organization [facility] and [facility] Address [address] [place] [address] Care Team Providers Care Intelligence Support Officer Name Role Phone Caitlyn Bowie MD Primary Care Provider +1- [phone] Encounter Details Date Type Department Care Team (Late st Contact Info) Description 01/26/2018 Scanned Document [facility] Health Information Management [address] [place] [address] External, Provider Social History Tobacco Use Types [...] Health – [facility] 240 [facility] Building [address] [place] [address] Ronald Mills MD 240 [facility] A1 [place] [address] documented as of this encounter [...] as of this encounter Care Teams Intelligence Support Officer Relationship Specialty Start Date End Date Caitlyn Bowie MD 3400 [facility] 1 [place] [address] PCP - General Internal Medicine 05/06/21 Henry Kelly MD Pulmonary Department [address] [place] [address], [address] [place] [address] Physician Pulmonary Disease 09/06/17 06/22/20 documented as of this encounter
--- OUTSIDE RECORDS SUMMARY | 2025-04-09 11:59 | XMS_ITS | Encounter Summary ---
Author Organization [facility] Address [address] [place] [address] Care Team Providers Care Sql Architect Name Role Phone Caitlyn Bowie MD Primary Care Provider +1- [phone] Encounter Details Date Type Department Care Team (Late st Contact Info) Description 05/01/2015 Scanned Document [facility] Health Information Management [address] [place] [address] External, Provider Social History Tobacco Use Types [...] at [facility] 240 [facility] Building [address] [place], [place] [address] Ronald Mills MD 240 [facility] Max [address] [place] [address] documented as of this encounter [...] as of this encounter Care Teams Sql Architect Relationship Specialty Start Date End Date Caitlyn Bowie MD 3400 [facility] Max 1 [place] [address] PCP - General Internal Medicine 05/06/21 Henry Kelly MD Pulmonary Department 175 [facility], [address] [place] [address] Physician Pulmonary Disease 09/06/17 06/22/20 documented as of this encounter
--- OUTSIDE RECORDS SUMMARY | 2025-04-09 11:59 | XMS_ITS | Encounter Summary ---
Author Organization [facility] and [facility] Address [address] [place] [address] Care Team Providers Care Revenue Tax Specialist Name Role Phone Caitlyn Bowie MD Primary Care Provider +1- [phone] Encounter Details Date Type Department Care Team (Late st Contact Info) Description 11/07/2014 Scanned Document [facility] Health Information Management [address] [place] [address] External, Provider Social History Tobacco Use Types [...] at [facility] 240 [facility] Building [address] [place], [place] [phone] Ronald Mills MD 240 [facility] A1 [place] [address] documented as of this encounter Visit Diagnoses Not on filedocumented in this encounter Additional Health Concerns Infection Onset Date Last Indicated Resolved Time COVID-19 03/05/2022 03/05/2022 03/15/2022 7:18 PM EDT documented as of this encounter Care Teams Revenue Tax Specialist Relationship Specialty Start Date End Date Caitlyn Bowie MD 3400 [facility] 1 [place] [address] PCP - General Internal Medicine 05/06/21 Henry Kelly MD Pulmonary Department 175 [facility], [address] [place] [address] Physician Pulmonary Disease 09/06/17 06/22/20 documented as of this encounter
--- OUTSIDE RECORDS SUMMARY | 2025-04-09 11:59 | XMS_ITS | Encounter Summary ---
Author Organization [facility] and [facility] Address [address] [place] [address] Care Team Providers Care Dozer Operator Name Role Phone Caitlyn Bowie MD Primary Care Provider +1- [phone] Encounter Details Date Type Department Care Team (Late Contact Info) Description 02/02/2021 Scanned Document [facility] Health Information Management [address] [place] [address] External, Provider Social History Tobacco Use Types [...] at [facility] 240 [facility] Building [address] [place], [place] [phone] Ronald Mills MD [address] [place] [address] [address]1 [place] [address] documented as of this encounter [...] End Date Caitlyn Bowie MD [address] [address] PCP - General Internal Medicine 05/06/21 documented as of this encounter
--- OUTSIDE RECORDS SUMMARY | 2025-04-09 11:59 | XMS_ITS | Encounter Summary ---
Author Organization [facility] and [facility] Address [address] [place] [address] Care Team Providers Care Needlemaker Name Role Phone Caitlyn Bowie MD Primary Care Provider +1- [phone] Encounter Details Date Type Department Care Team (Late st Contact Info) Description 11/09/2014 Scanned Document [facility] Health Information Management [address] [place] [address] External, Provider Social History Tobacco Use Types [...] [facility] 240 [facility] [address] [place], [place] [id number] Ronald Mills MD 240 [facility] A1 [place] [address] documented as of this encounter Visit Diagnoses Not on filedocumented in this encounter Additional Health Concerns Infection Onset Date Last Indicated Resolved Time COVID-19 03/05/2022 03/05/2022 03/15/2022 7:18 PM EDT documented as of this encounter Care Teams Needlemaker Relationship Specialty Start Date End Date Caitlyn Bowie MD 3400 [facility] 1 [place] [address] PCP - General Internal Medicine 05/06/21 Henry Kelly MD Pulmonary Department 175 [facility], [address] [place] [address] Physician Pulmonary Disease 09/06/17 06/22/20 documented as of this encounter
--- OUTSIDE RECORDS SUMMARY | 2025-04-09 11:59 | XMS_ITS | Encounter Summary ---
Author Organization [facility] and [facility] Address [address] [place] [address] Care Team Providers Care Medical Anthropology Director Name Role Phone Caitlyn Bowie MD Primary Care Provider +1- [phone] Encounter Details Date Type Department Care Team (Late st Contact Info) Description 01/30/2018 Scanned Document [facility] Health Information Management [address] [place] [address] External, Provider Social History Tobacco Use Types [...] [facility] 240 [facility] Building [address] [place], [place] [phone] Ronald Mills MD [address] [place] [address] [address] [place] [address] documented as of this encounter [...] as of this encounter Care Teams Medical Anthropology Director Relationship Specialty Start Date End Date Caitlyn Bowie MD [facility] 1 [place] [address] PCP - General Internal Medicine 05/06/21 Henry Kelly MD Pulmonary Department 175 [facility], [address] [place] [address] Physician Pulmonary Disease 09/06/17 06/22/20 documented as of this encounter
--- OUTSIDE RECORDS SUMMARY | 2025-04-09 11:59 | XMS_ITS | Encounter Summary ---
Author Organization [facility] and [facility] Address [address] [place] [address] Care Team Providers Care Nursing Program Chair Name Role Phone Caitlyn Bowie MD Primary Care Provider +1- [phone] Encounter Details Date Type Department Care Team (Late st Contact Info) Description 04/08/2024 Scanned Document INTERFACE DEFAULT [address] [place] [address] System, Provider Not In Social History Tobacco [...] [facility] 240 [facility] Building [address] [place], [place] [address] Ronald Mills MD [address] [place] [address] [address] [place] [address] documented as of this encounter [...] as of this encounter Care Teams Nursing Program Chair Relationship Specialty Start Date End Date Caitlyn Bowie MD [address] [address] PCP - General Internal Medicine 05/06/21 documented as of this encounter
--- OUTSIDE RECORDS SUMMARY | 2025-04-09 11:59 | XMS_ITS | Encounter Summary ---
Author Organization [facility] and [facility] Address [address] [place] [address] Care Team Providers Care Lead Press Operator Name Role Phone Caitlyn Bowie MD Primary Care Provider +1- [phone] Encounter Details Date Type Department Care Team (Late st Contact Info) Description 01/28/2018 Scanned Document [facility] Health Information Management [address] [place] [address] External, Provider Social History Tobacco Use Types [...] [facility] 240 [facility] Building [address] [place], [place] [phone] Ronald Mills MD [address] [place] [address] [address]1 [place] [address] documented as of this encounter [...] as of this encounter Care Teams Lead Press Operator Relationship Specialty Start Date End Date Caitlyn Bowie MD [facility] 1 [place] [address] PCP - General Internal Medicine 05/06/21 Henry Kelly MD Pulmonary Department 175 [facility], [address] [place] [address] Physician Pulmonary Disease 09/06/17 06/22/20 documented as of this encounter
--- OUTSIDE RECORDS SUMMARY | 2025-04-09 11:59 | XMS_ITS | Encounter Summary ---
Author Organization [facility] and [facility] Address 20 [place] [address] Care Team Providers Care Dish Cloth Inspector Name Role Phone Caitlyn Bowie MD Primary Care Provider +1- [phone] Encounter Details Date Type Department Care Team (Late st Contact Info) Description 01/13/2021 Scanned Document [facility] at [address] [address] External, Provider Social History Tobacco Use Types [...] [facility] 240 [facility] Building [address] [place], [place] [phone] Ronald Mills MD [address] [place] [address] [address] [place] [address] documented as of this encounter [...] as of this encounter Care Teams Dish Cloth Inspector Relationship Specialty Start Date End Date Caitlyn Bowie MD [address] [address] PCP - General Internal Medicine 05/06/21 documented as of this encounter
--- OUTSIDE RECORDS SUMMARY | 2025-04-09 11:59 | XMS_ITS | Encounter Summary ---
Author Organization [facility] and [facility] Address [address] [place] [address] Care Team Providers Care Economics Instructor Name Role Phone Caitlyn Bowie MD Primary Care Provider +1- [phone] Encounter Details Date Type Department Care Team (Late st Contact Info) Description 11/09/2020 Scanned Document INTERFACE DEFAULT [address] [place] [address] System, Provider Not In Social History Tobacco [...] [facility] at [facility] 240 [facility] Building [address] [place] [address] Ronald Mills MD [address] [place] [address] [address]1 [place] [address] documented as of this encounter Visit Diagnoses Not on filedocumented in this encounter Additional Health Concerns Infection Onset Date Last Indicated Resolved Time COVID-19 03/05/2022 03/05/2022 03/15/2022 7:18 PM EDT Assessment Noted Time PHQ-9 Depression Total Score: 2 11/07/19 19 2:06 PM EDT documented as of this encounter Care Teams Economics Instructor Relationship Specialty Start Date End Date Caitlyn Bowie MD [address] [address] PCP - General Internal Medicine 05/06/21 documented as of this encounter
--- OUTSIDE RECORDS SUMMARY | 2025-04-09 11:59 | XMS_ITS | Encounter Summary ---
Author Organization [facility] and [facility] Address [address] [place] [address] Care Team Providers Care Powerhouse Mechanic Name Role Phone Caitlyn Bowie MD Primary Care Provider +1- [phone] Encounter Details Date Type Department Care Team (Late st Contact Info) Description 05/14/2015 Scanned Document [facility] Health Information Management [address] [place] [address] External, Provider Social History Tobacco Use Types [...] [facility] 240 [facility] Building [address] [place], [place] [phone] Ronald Mills MD 240 [facility] A1 [place] [address] documented as of this encounter Visit Diagnoses Not on filedocumented in this encounter Additional Health Concerns Infection Onset Date Last Indicated Resolved Time COVID-19 03/05/2022 03/05/2022 03/15/2022 7:18 PM EDT documented as of this encounter Care Teams Powerhouse Mechanic Relationship Specialty Start Date End Date Caitlyn Bowie MD 3400 [facility] 1 [place] [address] PCP - General Internal Medicine 05/06/21 Henry Kelly MD Pulmonary Department 175 [facility], [address] [place] [address] Physician Pulmonary Disease 09/06/17 06/22/20 documented as of this encounter
--- OUTSIDE RECORDS SUMMARY | 2025-04-09 11:59 | XMS_ITS | Encounter Summary ---
Author Organization [facility] and [facility] Address [address] [place] [address] Care Team Providers Care Garden Center Manager Name Role Phone Caitlyn Bowie MD Primary Care Provider +1- [phone] Encounter Details Date Type Department Care Team (Late st Contact Info) Description 01/27/2018 Scanned Document [facility] Health Information Management [address] [place] [address] External, Provider Social History Tobacco Use Types [...] [facility] 240 [facility] Building [address] [place], [place] [phone] Ronald Mills MD 240 [facility] A1 [place] [address] documented as of this encounter Visit Diagnoses Not on filedocumented in this encounter Additional Health Concerns Infection Onset Date Last Indicated Resolved Time COVID-19 03/05/2022 03/05/2022 03/15/2022 7:18 PM EDT documented as of this encounter Care Teams Garden Center Manager Relationship Specialty Start Date End Date Caitlyn Bowie MD 3400 [facility] 1 [place] [address] PCP - General Internal Medicine 05/06/21 Henry Kelly MD Pulmonary Department 175 [facility], [address] [place] [address] Physician Pulmonary Disease 09/06/17 06/22/20 documented as of this encounter
--- OUTSIDE RECORDS SUMMARY | 2025-04-09 11:59 | XMS_ITS | Encounter Summary ---
Author Organization [facility] and [facility] Address [address] [place] [address] Care Team Providers Care Engineer Internship Name Role Phone Caitlyn Bowie MD Primary Care Provider +1- [phone] Encounter Details Date Type Department Care Team (Late st Contact Info) Description 06/17/2016 Scanned Document [facility] Health Information Management [address] [place] [address] External, Provider Social History Tobacco Use Types [...] [facility] 240 [facility] Building [address] [place], [place] [id number] Ronald Mills MD 240 [facility] A1 [place] [address] documented as of this encounter Visit Diagnoses Not on filedocumented in this encounter Additional Health Concerns Infection Onset Date Last Indicated Resolved Time COVID-19 03/05/2022 03/05/2022 03/15/2022 7:18 PM EDT documented as of this encounter Care Teams Engineer Internship Relationship Specialty Start Date End Date Caitlyn Bowie MD 3400 [facility] 1 [place] [address] PCP - General Internal Medicine 05/06/21 Henry Kelly MD Pulmonary Department 175 [facility], [address] [place] [address] Physician Pulmonary Disease 09/06/17 06/22/20 documented as of this encounter
--- OUTSIDE RECORDS SUMMARY | 2025-04-09 11:59 | XMS_ITS | Encounter Summary ---
Author Organization [facility] and [facility] Address [address] [place] [address] Care Team Providers Care Crap Shooter Name Role Phone Caitlyn Bowie MD Primary Care Provider +1- [phone] Encounter Details Date Type Department Care Team (Late st Contact Info) Description 04/28/2015 Scanned Document [facility] Health Information Management [address] [place] [address] External, Provider Social History Tobacco Use Types [...] [facility] 240 [facility] Building [address] [place], [place] [phone] Ronald Mills MD 240 [facility] Max [address]1 [place] [address] documented as of this encounter Procedures Procedure Name Priority Date/Time Associated Diagnosis Comments LAB SCAN Routine 04/28/2015 documented in this encounter Results * Lab Scan (04/28/2015) Blood specimen (specimen) us Provider External LAB BLOOD ORDERABLES Edited Re sult - Final [facility] documented in this encounter Visit Diagnoses Not on filedocumented in this encounter Additional Health Concerns Infection Onset Date Last Indicated Resolved Time COVID-19 03/05/2022 03/05/2022 03/15/2022 7:18 PM EDT documented as of this encounter Care Teams Crap Shooter Relationship Specialty Start Date End Date Caitlyn Bowie MD 3400 [facility] 1 [place] [address] PCP - General Internal Medicine 05/06/21 Henry Kelly MD Pulmonary Department 175 [facility], [address] [place] [address] Physician Pulmonary Disease 09/06/17 06/22/20 documented as of this encounter
--- OUTSIDE RECORDS SUMMARY | 2025-04-09 11:59 | XMS_ITS | Encounter Summary ---
Author Organization [facility] and [facility] Address [address] [place] [address] Care Team Providers Care Incident Handler Name Role Phone Caitlyn Bowie MD Primary Care Provider +1- [phone] Encounter Details Date Type Department Care Team (Late st Contact Info) Description 02/02/2021 Scanned Document INTERFACE DEFAULT [address] [place] [address] System, Provider Not In Social History Tobacco [...] [facility] [address] [facility] Building [address] [place] [address] Ronald Mills MD [address] [place] [address] [address] [place] [address] documented as of this encounter [...] documented as of this encounter Care Teams Incident Handler Relationship Specialty Start Date End Date Caitlyn Bowie MD [facility] [address] [address] PCP - General Internal Medicine 05/06/21 documented as of this encounter
--- OUTSIDE RECORDS SUMMARY | 2025-04-09 11:59 | XMS_ITS | Encounter Summary ---
Author Organization [facility] and [facility] Address [address] [place] [address] Care Team Providers Care Ocular Pathologist Name Role Phone Caitlyn Bowie MD Primary Care Provider +1- [phone] Encounter Details Date Type Department Care Team (Late st Contact Info) Description 02/02/2018 Scanned Document [facility] Health Information Management [address] [place] [address] External, Provider Social History Tobacco Use Types [...] at [facility] 240 [facility] Building [address] [place], [place] [phone] Ronald Mills MD [address] [place] [address] [address] [place] [address] documented as of [...] documented as of this encounter Care Teams Ocular Pathologist Relationship Specialty Start Date End Date Caitlyn Bowie MD 3400 [facility] 1 [place] [address] PCP - General Internal Medicine 05/06/21 Henry Kelly MD Pulmonary Department 175 [facility], [address] [place] [address] Physician Pulmonary Disease 09/06/17 06/22/20 documented as of this encounter
--- OUTSIDE RECORDS SUMMARY | 2025-04-09 11:59 | XMS_ITS | Encounter Summary ---
Author Organization [facility] and [facility] Address [address] [place] [address] Care Team Providers Care Quahogger Name Role Phone Caitlyn Bowie MD Primary Care Provider +1- [phone] Encounter Details Date Type Department Care Team (Late st Contact Info) Description 01/27/2018 Scanned Document [facility] Health Information Management [address] [place] [address] External, Provider Social History Tobacco Use Types [...] [facility] 240 [facility] Building [address] [place] [address] Ronald Mills MD 240 [facility] [address]1 [place] [address] documented as of this encounter [...] documented as of this encounter Care Teams Quahogger Relationship Specialty Start Date End Date Caitlyn Bowie MD 3400 [facility] 1 [place] [address] PCP - General Internal Medicine 05/06/21 Henry Kelly MD Pulmonary Department 175 [facility] [place], [address] [place] [address] Physician Pulmonary Disease 09/06/17 06/22/20 documented as of this encounter
--- OUTSIDE RECORDS SUMMARY | 2025-04-09 11:59 | XMS_ITS | Encounter Summary ---
Author Organization [facility] and [facility] Address [address] [place] [address] Care Team Providers Care Chief Concierge Name Role Phone Caitlyn Bowie MD Primary Care Provider +1- [phone] Encounter Details Date Type Department Care Team (Late st Contact Info) Description 09/23/2024 Scanned Document INTERFACE DEFAULT [address] [place] [phone] System, Provider Not In Social History Tobacco [...] [facility] 240 [facility] Building [address] [place], [place] [address] Ronald Mills MD [address] [place] [address] [address] [place] [address] documented as of this encounter [...] as of this encounter Care Teams Chief Concierge Relationship Specialty Start Date End Date Caitlyn Bowie MD [address] [address] PCP - General Internal Medicine 05/06/21 documented as of this encounter
--- OUTSIDE RECORDS SUMMARY | 2025-04-09 11:59 | XMS_ITS | Encounter Summary ---
Author Organization [facility] and [facility] Address [address] [place] [address] Care Team Providers Care Motor Equipment Sergeant Name Role Phone Caitlyn Bowie MD Primary Care Provider +1- [phone] Encounter Details Date Type Department Care Team (Late st Contact Info) Description 08/08/2024 Scanned Document INTERFACE DEFAULT [address] [place] [address] System, Provider Not In Social History Tobacco [...] [facility] 240 [facility] Building [address] [place], [place] [phone] Ronald Mills MD [address] [place] [address] [address]1 [place] [address] documented as of this encounter [...] of this encounter Care Teams Motor Equipment Sergeant Relationship Specialty Start Date End Date Caitlyn Bowie MD [address] [address] PCP - General Internal Medicine 05/06/21 documented as of this encounter
--- OUTSIDE RECORDS SUMMARY | 2025-04-09 11:59 | XMS_ITS | Encounter Summary ---
Author Organization [facility] and [facility] Address [address] [place] [address] Care Team Providers Care Access Clinician Name Role Phone Caitlyn Bowie MD Primary Care Provider +1- [phone] Encounter Details Date Type Department Care Team (Late st Contact Info) Description 02/03/2021 Scanned Document INTERFACE DEFAULT [address] [place] [address] System, Provider Not In Social History [...] [facility] 240 [facility] Building [address] [place], [place] [address] Ronald Mills MD [address] [place] [address] [address] [place] [address] documented as of this encounter [...] documented as of this encounter Care Teams Access Clinician Relationship Specialty Start Date End Date Caitlyn Bowie MD [address] [address] PCP - General Internal Medicine 05/06/21 documented as of this encounter
--- OUTSIDE RECORDS SUMMARY | 2025-04-09 11:59 | XMS_ITS | Encounter Summary ---
Author Organization [facility] and [facility] Address [address] [place] [address] Care Team Providers Care Molder Machine Tender Name Role Phone Caitlyn Bowie MD Primary Care Provider +1- [phone] Encounter Details Date Type Department Care Team (Late st Contact Info) Description 09/15/2024 Scanned Document INTERFACE DEFAULT [address] [place] [address] System, Provider Not In Social History Tobacco [...] [facility] 240 [facility] Building [address] [place], [place] [address] Ronald Mills MD [address] [place] [address] [address]1 [place] [address] documented as of this encounter [...] as of this encounter Care Teams Molder Machine Tender Relationship Specialty Start Date End Date Caitlyn Bowie MD [address] [address] PCP - General Internal Medicine 05/06/21 documented as of this encounter
--- OUTSIDE RECORDS SUMMARY | 2025-04-09 11:59 | XMS_ITS | Encounter Summary ---
Author Organization [facility] and [facility] Address [address] [place] [address] Care Team Providers Care Database Admin Name Role Phone Caitlyn Bowie MD Primary Care Provider +1- [phone] Encounter Details Date Type Department Care Team (Late st Contact Info) Description 06/25/2015 Scanned Document [facility] Health Information Management [address] [place] [address] External, Provider Social History Tobacco Use Types [...] [facility] at [facility] 240 [facility] Building [address] [place], [place] [phone] Ronald Mills MD 240 [facility] A1 [place] [address] documented as of this encounter Visit Diagnoses Not on filedocumented in this encounter Additional Health Concerns Infection Onset Date Last Indicated Resolved Time COVID-19 03/05/2022 03/05/2022 03/15/2022 7:18 PM EDT documented as of this encounter Care Teams Database Admin Relationship Specialty Start Date End Date Caitlyn Bowie MD 3400 [facility] 1 [place] [address] PCP - General Internal Medicine 05/06/21 Henry Kelly MD Pulmonary Department 175 [facility], [address] [place] [address] Physician Pulmonary Disease 09/06/17 06/22/20 documented as of this encounter
--- OUTSIDE RECORDS SUMMARY | 2025-04-09 11:59 | XMS_ITS | Encounter Summary ---
Author Organization [facility] and [facility] Address [address] [place] [address] Care Team Providers Care Product Controller Name Role Phone Caitlyn Bowie MD Primary Care Provider +1- [phone] Encounter Details Date Type Department Care Team (Late st Contact Info) Description 01/13/2021 Scanned Document [facility] at [address] [address] Ronald Mills MD [address] [address] Social History Tobacco Use Types [...] PM EDT Telemedicine [facility] at [address] [place] [address] Ronald Mills MD [address] [address] documented as of this [...] as of this encounter Care Teams Product Controller Relationship Specialty Start Date End Date Caitlyn Bowie MD [address] [address] PCP - General Internal Medicine 05/06/21 documented as of this encounter
--- OUTSIDE RECORDS SUMMARY | 2025-04-09 11:59 | XMS_ITS | Encounter Summary ---
Author Organization [facility] and [facility] Address [address] [place] [address] Care Team Providers Care Mirror Machine Feeder Name Role Phone Caitlyn Bowie MD Primary Care Provider +1- [phone] Encounter Details Date Type Department Care Team (Late st Contact Info) Description 04/04/2016 Scanned Document [facility] Health Information Management [address] [place] [address] External, Provider Social History Tobacco Use Types [...] [facility] 240 [facility] Building [address] [place], [place] [id number] Ronald Mills MD 240 [facility] [address] [place] [address] documented as of this encounter Procedures Procedure Name Priority Date/Time Associated Diagnosis Comments LAB SCAN Routine 04/04/2016 documented in this encounter Results * Lab Scan (04/04/2016) Blood specimen (specimen) us Provider External LAB BLOOD ORDERABLES Final Res ult [facility] documented in this encounter Visit Diagnoses Not on filedocumented in this encounter Additional Health Concerns Infection Onset Date Last Indicated Resolved Time COVID-19 03/05/2022 03/05/2022 03/15/2022 7:18 PM EDT documented as of this encounter Care Teams Mirror Machine Feeder Relationship Specialty Start Date End Date Caitlyn Bowie MD 3400 [facility] 1 [place] [address] PCP - General Internal Medicine 05/06/21 Henry Kelly MD Pulmonary Department 175 [facility], [address] [place] [address] Physician Pulmonary Disease 09/06/17 06/22/20 documented as of this encounter
--- OUTSIDE RECORDS SUMMARY | 2025-04-09 11:59 | XMS_ITS | Encounter Summary ---
Author Organization [facility] Address [address] [place] [address] Care Team Providers Care Melt Superintendant Name Role Phone Caitlyn Bowie MD Primary Care Provider +1- [phone] Encounter Details Date Type Department Care Team (Late st Contact Info) Description 02/01/2018 Scanned Document [facility] Health Information Management [address] [place] [address] External, Provider Social History Tobacco Use Types [...] [facility] 240 [facility] Building [address] [place], [place] [phone] Ronald Mills MD [address] [place] [address] [address] [place] [address] documented as of this encounter [...] as of this encounter Care Teams Melt Superintendant Relationship Specialty Start Date End Date Caitlyn Bowie MD 3400 [facility] 1 [place] [address] PCP - General Internal Medicine 05/06/21 Henry Kelly MD Pulmonary Department 175 [facility], [address] [place] [address] Physician Pulmonary Disease 09/06/17 06/22/20 documented as of this encounter
--- OUTSIDE RECORDS SUMMARY | 2025-04-09 12:00 | XMS_ITS | Encounter Summary ---
Author Organization [facility] and [facility] Address [address] [place] [address] Care Team Providers Care Through Operator Name Role Phone Caitlyn Bowie MD Primary Care Provider +1- [phone] Encounter Details Date Type Department Care Team (Late st Contact Info) Description 12/16/2016 Scanned Document [facility] Health Information Management [address] [place] [address] External, Provider Social History Tobacco Use Types [...] [facility] [place] 240 [facility] Building [address] [place], [place] [phone] Ronald Mills MD 240 [facility] [address] [place] [address] documented as of this encounter [...] as of this encounter Care Teams Through Operator Relationship Specialty Start Date End Date Caitlyn Bowie MD 3400 [facility] 1 [place] [address] PCP - General Internal Medicine 05/06/21 Henry Kelly MD Pulmonary Department 175 [facility], [address] [place] [address] Physician Pulmonary Disease 09/06/17 06/22/20 documented as of this encounter
--- OUTSIDE RECORDS SUMMARY | 2025-04-09 12:00 | XMS_ITS | Encounter Summary ---
Author Organization [facility] and [facility] Address [address] [place] [address] Care Team Providers Care Public Address System Operator Name Role Phone Caitlyn Bowie MD Primary Care Provider +1- [phone] Encounter Details Date Type Department Care Team (Late st Contact Info) Description 12/04/2014 Scanned Document [facility] Health Information Management [address] [place] [phone] External, Provider Social History Tobacco Use Types [...] [facility] 240 [facility] Building [address] [place], [place] [phone] Ronald Mills MD 240 [facility] [address] [place] [address] documented as of this encounter Procedures Procedure Name Priority Date/Time Associated Diagnosis Comments LAB SCAN Routine 12/04/2014 documented in this encounter Results * Lab Scan (12/04/2014) Blood specimen (specimen) us Provider External LAB BLOOD ORDERABLES Final Res ult [facility] documented in this encounter Visit Diagnoses Not on filedocumented in this encounter Additional Health Concerns Infection Onset Date Last Indicated Resolved Time COVID-19 03/05/2022 03/05/2022 03/15/2022 7:18 PM EDT documented as of this encounter Care Teams Public Address System Operator Relationship Specialty Start Date End Date Caitlyn Bowie MD 3400 [facility] 1 [place] [address] PCP - General Internal Medicine 05/06/21 Henry Kelly MD Pulmonary Department 175 [facility], [address] [place] [address] Physician Pulmonary Disease 09/06/17 06/22/20 documented as of this encounter
--- OUTSIDE RECORDS SUMMARY | 2025-04-09 12:00 | XMS_ITS | Encounter Summary ---
Author Organization [facility] and [facility] Address [address] [place] [address] Care Team Providers Care Perlite Grinder Name Role Phone Caitlyn Bowie MD Primary Care Provider +1- [phone] Encounter Details Date Type Department Care Team (Late st Contact Info) Description 10/23/2024 Scanned Document INTERFACE DEFAULT [address] [place] [address] System, Provider Not In Social History [...] at [facility] 240 [facility] Building [address] [place], [place] [id number] Ronald Mills MD [address] [place] [address] [address] [place] [address] documented as of this encounter [...] documented as of this encounter Care Teams Perlite Grinder Relationship Specialty Start Date End Date Caitlyn Bowie MD [address] [address] PCP - General Internal Medicine 05/06/21 documented as of this encounter
--- OUTSIDE RECORDS SUMMARY | 2025-04-09 12:00 | XMS_ITS | Encounter Summary ---
Author Organization [facility] Address [address] [place] [address] Care Team Providers Care Food Cart Attendant Name Role Phone Caitlyn Bowie MD Primary Care Provider +1- [phone] Encounter Details Date Type Department Care Team (Late st Contact Info) Description 07/08/2016 Scanned Document [facility] Health Information Management [address] [place] [address] External, Provider Social History Tobacco Use Types [...] [facility] 240 [facility] Building [address] [place], [place] [phone] Ronald Mills MD 240 [facility] [address] [place] [address] documented as of this encounter Procedures Procedure Name Priority Date/Time Associated Diagnosis Comments LAB SCAN Routine 07/08/2016 documented in this encounter Results * Lab Scan (07/08/2016) Blood specimen (specimen) us Provider External LAB BLOOD ORDERABLES Final Res ult [facility] documented in this encounter Visit Diagnoses Not on filedocumented in this encounter Additional Health Concerns Infection Onset Date Last Indicated Resolved Time COVID-19 03/05/2022 03/05/2022 03/15/2022 7:18 PM EDT documented as of this encounter Care Teams Food Cart Attendant Relationship Specialty Start Date End Date Caitlyn Bowie MD 3400 [facility] 1 [place] [address] PCP - General Internal Medicine 05/06/21 Henry Kelly MD Pulmonary Department 175 [facility], [address] [place] [address] Physician Pulmonary Disease 09/06/17 06/22/20 documented as of this encounter
--- OUTSIDE RECORDS SUMMARY | 2025-04-09 12:00 | XMS_ITS | Encounter Summary ---
Author Organization [facility] and [facility] Address [address] [place] [address] Care Team Providers Care Nursing Informatics Analyst Name Role Phone Caitlyn Bowie MD Primary Care Provider +1- [phone] Encounter Details Date Type Department Care Team (Late st Contact Info) Description 03/26/2015 Scanned Document Cardiovascular Medicine at [address] [place] [address] Norma Renee MD [address] [place] [phone] Social History Tobacco Use Types Packs/Day Years [...] PM EDT Telemedicine Cancer Center at [address] [place], [place] [phone] Ronald Mills MD 240 [facility] A1 [place] [address] documented as of this encounter Visit Diagnoses Not on filedocumented in this encounter Additional Health Concerns Infection Onset Date Last Indicated Resolved Time COVID-19 03/05/2022 03/05/2022 03/15/2022 7:18 PM EDT documented as of this encounter Care Teams Nursing Informatics Analyst Relationship Specialty Start Date End Date Caitlyn Bowie MD 3400 [facility] [address] 1 [place] [address] PCP - General Internal Medicine 05/06/21 Henry Kelly MD Pulmonary Department 175 [facility], [address] [place] [address] Physician Pulmonary Disease 09/06/17 06/22/20 documented as of this encounter
--- OUTSIDE RECORDS SUMMARY | 2025-04-09 12:00 | XMS_ITS | Encounter Summary ---
Author Organization [facility] and [facility] Address [address] [place] [address] Care Team Providers Care Technical Aid Name Role Phone Caitlyn Bowie MD Primary Care Provider +1- [phone] Encounter Details Date Type Department Care Team (Late st Contact Info) Description 03/13/2015 Scanned Document [facility] Health Information Management [address] [place] [phone] External, Provider Social History Tobacco Use Types [...] [facility] 240 [facility] Building [address] [place], [place] [phone] Ronald Mills MD 240 [facility] [address] [place] [address] documented as of this encounter Procedures Procedure Name Priority Date/Time Associated Diagnosis Comments LAB SCAN Routine 02/16/2015 LAB SCAN Routine 02/16/2015 documented in this encounter Results * Lab Scan (02/16/2015) Blood specimen (specimen) us Provider External LAB BLOOD ORDERABLES Final Res ult Performing Organization Address [facility]/ZIP Co de Phone Number [facility] * Lab Scan (02/16/2015) Blood specimen (specimen) Provider External LAB BLOOD ORDERABLES Final Res ult Performing Organization Address [facility] Co de Phone Number [facility] documented in this encounter Visit Diagnoses Not on filedocumented in this encounter Additional Health Concerns Infection Onset Date Last Indicated Resolved Time COVID-19 03/05/2022 03/05/2022 03/15/2022 7:18 PM EDT documented as of this encounter Care Teams Technical Aid Relationship Specialty Start Date End Date Caitlyn Bowie MD 3400 [facility] 1 [place] [address] PCP - General Internal Medicine 05/06/21 Henry Kelly MD Pulmonary Department 175 [facility], [address] [place] [address] Physician Pulmonary Disease 09/06/17 06/22/20 documented as of this encounter
--- OUTSIDE RECORDS SUMMARY | 2025-04-09 12:00 | XMS_ITS | Encounter Summary ---
Author Organization [facility] and [facility] Address [address] [place] [address] Care Team Providers Care Manager Mechanical Name Role Phone Caitlyn Bowie MD Primary Care Provider +1- [phone] Encounter Details Date Type Department Care Team (Late st Contact Info) Description 01/26/2018 Scanned Document [facility] Health Information Management [address] [place] [address] External, Provider Social History Tobacco Use Types [...] [facility] Building [address] [place], [place] [address] Ronald Mills MD 240 [facility] [address] [place] [address] documented as of this [...] as of this encounter Care Teams Manager Mechanical Relationship Specialty Start Date End Date Caitlyn Bowie MD 3400 [facility] 1 [place] [address] PCP - General Internal Medicine 05/06/21 Henry Kelly MD Pulmonary Department 175 [facility], [address] [place] [address] Physician Pulmonary Disease 09/06/17 06/22/20 documented as of this encounter
--- OUTSIDE RECORDS SUMMARY | 2025-04-09 12:00 | XMS_ITS | Encounter Summary ---
Author Organization [facility] Address [address] [place] [address] Care Team Providers Care Barrow Worker Name Role Phone Caitlyn Bowie MD Primary Care Provider +1- [phone] Encounter Details Date Type Department Care Team (Late st Contact Info) Description 03/11/2015 Scanned Document [facility] Health Information Management [address] [place] [address] External, Provider Social History Tobacco Use Types [...] [facility] 240 [facility] Building [address] [place], [place] [phone] Ronald Mills MD 240 [facility] Max [address] [place] [address] documented as of this encounter Procedures Procedure Name Priority Date/Time Associated Diagnosis Comments LAB SCAN Routine 03/11/2015 documented in this encounter Results * Lab Scan (03/11/2015) Blood specimen (specimen) us Provider External LAB BLOOD ORDERABLES Edited Re sult - Final [facility] documented in this encounter Visit Diagnoses Not on filedocumented in this encounter Additional Health Concerns Infection Onset Date Last Indicated Resolved Time COVID-19 03/05/2022 03/05/2022 03/15/2022 7:18 PM EDT documented as of this encounter Care Teams Barrow Worker Relationship Specialty Start Date End Date Caitlyn Bowie MD 34[address] [facility] 1 [place] [address] PCP - General Internal Medicine 05/06/21 Henry Kelly MD Pulmonary Department 175 [facility], [address] [place] [address] Physician Pulmonary Disease 09/06/17 06/22/20 documented as of this encounter
--- OUTSIDE RECORDS SUMMARY | 2025-04-09 12:00 | XMS_ITS | Encounter Summary ---
Author Organization [facility] Address [address] [place] [address] Care Team Providers Care Kitchen Designer Name Role Phone Caitlyn Bowie MD Primary Care Provider +1- [phone] Encounter Details Date Type Department Care Team (Late st Contact Info) Description 12/14/2016 Scanned Document [facility] Health Information Management [address] [place] [address] External, Provider Social History Tobacco Use Types [...] [facility] 240 [facility] Building [address] [place], [place] [phone] Ronald Mills MD 240 [facility] [address]1 [place] [address] documented as of this encounter Visit Diagnoses Not on filedocumented in this encounter Additional Health Concerns Infection Onset Date Last Indicated Resolved Time COVID-19 03/05/2022 03/05/2022 03/15/2022 7:18 PM EDT documented as of this encounter Care Teams Kitchen Designer Relationship Specialty Start Date End Date Caitlyn Bowie MD 3400 [facility] 1 [place] [address] PCP - General Internal Medicine 05/06/21 Henry Kelly MD Pulmonary Department 175 [facility], [address] [place] [address] Physician Pulmonary Disease 09/06/17 06/22/20 documented as of this encounter
--- OUTSIDE RECORDS SUMMARY | 2025-04-09 12:00 | XMS_ITS | Encounter Summary ---
Author Organization [facility] Address [address] [place] [address] Care Team Providers Care Corrosion Control Engineer Name Role Phone Caitlyn Bowie MD Primary Care Provider +1- [phone] Encounter Details Date Type Department Care Team (Late st Contact Info) Description 02/19/2015 Scanned Document [facility] Health Information Management [address] [place] [address] External, Provider Social History Tobacco Use Types [...] [facility] 240 [place] [facility] Building [address] [place], [place] [phone] Ronald Mills MD 240 [facility] [address] [place] [address] documented as of this encounter Procedures Procedure Name Priority Date/Time Associated Diagnosis Comments LAB SCAN Routine 02/19/2015 documented in this encounter Results * Lab Scan (02/19/2015) Blood specimen (specimen) us Provider External LAB BLOOD ORDERABLES Final Res ult [facility] documented in this encounter Visit Diagnoses Not on filedocumented in this encounter Additional Health Concerns Infection Onset Date Last Indicated Resolved Time COVID-19 03/05/2022 03/05/2022 03/15/2022 7:18 PM EDT documented as of this encounter Care Teams Corrosion Control Engineer Relationship Specialty Start Date End Date Caitlyn Bowie MD 3400 [facility] 1 [place] [address] PCP - General Internal Medicine 05/06/21 Henry Kelly MD Pulmonary Department 175 [facility], [address] [place] [address] Physician Pulmonary Disease 09/06/17 06/22/20 documented as of this encounter
--- OUTSIDE RECORDS SUMMARY | 2025-04-09 12:00 | XMS_ITS | Encounter Summary ---
Author Organization [facility] Address [address] [place] [address] Care Team Providers Care Screen Vent Binder Name Role Phone Caitlyn Bowie MD Primary Care Provider +1- [phone] Encounter Details Date Type Department Care Team (Late st Contact Info) Description 06/17/2016 Scanned Document [facility] Health Information Management [address] [place] [address] External, Provider Social History Tobacco Use Types [...] at [facility] 240 [facility] Building [address] [place], [place] [phone] Ronald Mills MD 240 [facility] Max [address] [place] [address] documented as of this encounter Procedures Procedure Name Priority Date/Time Associated Diagnosis Comments XRAY RESULT SCAN Routine 06/17/2016 documented in this encounter Results * Xray Result Scan (06/17/2016) us Provider External IMG SCAN REPORTS Final Result [facility] [place], [place], [facility] documented in this encounter Visit Diagnoses Not on filedocumented in this encounter Additional Health Concerns Infection Onset Date Last Indicated Resolved Time COVID-19 03/05/2022 03/05/2022 03/15/2022 7:18 PM EDT documented as of this encounter Care Teams Screen Vent Binder Relationship Specialty Start Date End Date Caitlyn Bowie MD 3400 [facility] 1 [place] [address] PCP - General Internal Medicine 05/06/21 Henry Kelly MD Pulmonary Department [address] [place] [address], [address] [place] [address] Physician Pulmonary Disease 09/06/17 06/22/20 documented as of this encounter
--- OUTSIDE RECORDS SUMMARY | 2025-04-09 12:00 | XMS_ITS | Encounter Summary ---
Author Organization [facility] and [facility] Address [address] [place] [address] Care Team Providers Care Puller Through Name Role Phone Caitlyn Bowie MD Primary Care Provider +1- [phone] Encounter Details Date Type Department Care Team (Late st Contact Info) Description 07/27/2016 Scanned Document Thoracic Oncology Program at [address] [address] Suzy Kong MD [address] [place] [phone] Social History Tobacco Use Types Packs/Day [...] PM EDT Telemedicine Cancer Center at [address] [place], [place] [phone] Ronald Mills MD 240 [facility] [address] [place] [address] documented as of this encounter Visit Diagnoses Not on filedocumented in this encounter Additional Health Concerns Infection Onset Date Last Indicated Resolved Time COVID-19 03/05/2022 03/05/2022 03/15/2022 7:18 PM EDT documented as of this encounter Care Teams Puller Through Relationship Specialty Start Date End Date Caitlyn Bowie MD 3400 [facility] Max 1 [place] [address] PCP - General Internal Medicine 05/06/21 Henry Kelly MD Pulmonary Department 175 [facility], [address] [place] [address] Physician Pulmonary Disease 09/06/17 06/22/20 documented as of this encounter
--- OUTSIDE RECORDS SUMMARY | 2025-04-09 12:00 | XMS_ITS | Encounter Summary ---
Author Organization [facility] Address [address] [place] [address] Care Team Providers Care Product Delivery Specialist Name Role Phone Caitlyn Bowie MD Primary Care Provider +1- [phone] Reason for Referral * Imaging (Routine) - Closed Specialty Diagnoses / Procedures Referred By Contac t Referred To Contact Procedures NM Lung Ventilation Perfusion ([facility]) External, Provider Referral ID Status Reason Start Date Expiration Date Visits Re quested Visits Authorized [id number] Closed 08/22/2016 08/22/2017 4 4 Encounter Details Date Type Department Care Team (Late st Contact Info) Description 08/22/2016 Scanned Document Thoracic Oncology Program at [address] [address] External, Provider Social History Tobacco Use Types [...] PM EDT Telemedicine Cancer Center at [address] [place] [address] Ronald Mills MD [address] [place] [address] [address] [place] [phone] documented as of this encounter Procedures Procedure Name Priority Date/Time Associated Diagnosis Comments XRAY RESULT SCAN Routine 07/27/2016 CT RESULT SCAN Routine 07/27/2016 CT RESULT SCAN Routine 07/27/2016 CARDIAC EKG RESULT SCAN Routine 07/27/2016 LAB SCAN Routine 07/27/2016 NM LUNG VENTILATION PERFUSIO N ([facility]) Routine 07/27/2016 documented in this encounter Results * Xray Result Scan (07/27/2016) us Provider External IMG SCAN REPORTS Final Result Performing Organization Address [facility] Co de Phone Number [facility] * CT Result Scan (07/27/2016) us Provider External IMG SCAN REPORTS Final Result Performing Organization Address [facility] Co de Phone Number [facility] * Cardiac EKG Result Scan (07/27/2016) us Provider External CV CARDIAC REPORT (CVR) Final Result Performing Organization Address [facility] Co de Phone Number [facility] * CT Result Scan (07/27/2016) us Provider External IMG SCAN REPORTS Final Result Performing Organization Address [facility] Co de Phone Number [facility] LAB [facility] * Lab Scan (07/27/2016) Blood specimen (specimen) us Provider External LAB BLOOD ORDERABLES Final Res ult Performing Organization Address [facility] Co de Phone Number [facility] * NM Lung Ventilation Perfusion ([facility]) (07/27/2016) Anatomical Region Laterality Modality Chest, Lung Nuclear Medicine us Provider External IMG NM ORDERABLES Final Result documented in this encounter Visit Diagnoses Not on filedocumented in this encounter Additional Health Concerns Infection Onset Date Last Indicated Resolved Time COVID-19 03/05/2022 03/05/2022 03/15/2022 7:18 PM EDT documented as of this encounter Care Teams Product Delivery Specialist Relationship Specialty Start Date End Date Caitlyn Bowie MD [address] [facility] [address] [place] [address] PCP - General Internal Medicine 05/06/21 Henry Kelly MD Pulmonary Department 175 [facility], [address] [place] [address] Physician Pulmonary Disease 09/06/17 06/22/20 documented as of this encounter
--- OUTSIDE RECORDS SUMMARY | 2025-04-09 12:00 | XMS_ITS | Encounter Summary ---
Author Organization [facility] and [facility] Address [address] [place] [address] Care Team Providers Care Computer Game Designer Name Role Phone Caitlyn Bowie MD Primary Care Provider +1- [phone] Encounter Details Date Type Department Care Team (Late st Contact Info) Description 10/10/2016 Scanned Document [facility] Health Information Management [address] [place] [phone] External, Provider Social History Tobacco Use Types [...] at [facility] [address] [facility] [address] [place], [place] [phone] Ronald Mills MD [address] [facility] [address] [place] [address] documented as of this encounter Visit Diagnoses Not on filedocumented in this encounter Additional Health Concerns Infection Onset Date Last Indicated Resolved Time COVID-19 03/05/2022 03/05/2022 03/15/2022 7:18 PM EDT documented as of this encounter Care Teams Computer Game Designer Relationship Specialty Start Date End Date Caitlyn Bowie MD [address] [facility] 1 [place] [address] PCP - General Internal Medicine 05/06/21 Henry Kelly MD Pulmonary Department [address] [facility] [place] [address] Physician Pulmonary Disease 09/06/17 06/22/20 documented as of this encounter
--- OUTSIDE RECORDS SUMMARY | 2025-04-09 12:00 | XMS_ITS | Encounter Summary ---
Author Organization [facility] and [facility] Address [address] [place] [address] Care Team Providers Care Soa Architect Name Role Phone Caitlyn Bowie MD Primary Care Provider +1- [phone] Encounter Details Date Type Department Care Team (Late st Contact Info) Description 07/27/2016 Scanned Document Thoracic Oncology Program at [address] [address] Suzy Kong MD [address] [place] [phone] Social History Tobacco Use Types Packs/Day [...] PM EDT Telemedicine Cancer Center at [address] [place], [place] [phone] Ronald Mills MD [address] [facility] [address] [place] [address] documented as of this encounter Visit Diagnoses Not on filedocumented in this encounter Additional Health Concerns Infection Onset Date Last Indicated Resolved Time COVID-19 03/05/2022 03/05/2022 03/15/2022 7:18 PM EDT documented as of this encounter Care Teams Soa Architect Relationship Specialty Start Date End Date Caitlyn Bowie MD [address] [facility] [address] [place] [address] PCP - General Internal Medicine 05/06/21 Henry Kelly MD Pulmonary Department [address] [facility], [address] [place] [address] Physician Pulmonary Disease 09/06/17 06/22/20 documented as of this encounter
--- OUTSIDE RECORDS SUMMARY | 2025-04-09 12:00 | XMS_ITS | Encounter Summary ---
Author Organization [facility] and [facility] Address [address] [place] [phone] Care Team Providers Care Artificial Breeding Technician Name Role Phone Caitlyn Bowie MD Primary Care Provider +1- [phone] Encounter Details Date Type Department Care Team (Late st Contact Info) Description 12/14/2016 Scanned Document [facility] Information Management [address] [place] [address] External, Provider Social History Tobacco Use Types [...] Center at [facility] [address] [facility] [address] [place], [place] [phone] Ronald Mills MD [address] [facility] [address] [place] [address] documented as of this encounter [...] as of this encounter Care Teams Artificial Breeding Technician Relationship Specialty Start Date End Date Caitlyn Bowie MD [address] [facility] 1 [place] [address] PCP - General Internal Medicine 05/06/21 Henry Kelly MD Pulmonary Department 175 [facility], [address] [place] [address] Physician Pulmonary Disease 09/06/17 06/22/20 documented as of this encounter
--- OUTSIDE RECORDS SUMMARY | 2025-04-09 12:00 | XMS_ITS | Encounter Summary ---
Author Organization [facility] and [facility] Address [address] [place] [address] Care Team Providers Care Electrical Continuity Tester Name Role Phone Caitlyn Bowie MD Primary Care Provider +1- [phone] Encounter Details Date Type Department Care Team (Late st Contact Info) Description 12/16/2016 Scanned Document [facility] Health Information Management [address] [place] [phone] External, Provider Social History Tobacco Use Types [...] Health – [facility] [address] [facility] [address] [place], [place] [phone] Ronald Mills MD [address] [facility] [address] [place] [address] documented as of this encounter [...] as of this encounter Care Teams Electrical Continuity Tester Relationship Specialty Start Date End Date Caitlyn Bowie MD [address] [facility] 1 [place] [address] PCP - General Internal Medicine 05/06/21 Henry Kelly MD Pulmonary Department 175 [facility] [place] [address] Physician Pulmonary Disease 09/06/17 06/22/20 documented as of this encounter
--- OUTSIDE RECORDS SUMMARY | 2025-04-09 12:00 | XMS_ITS | Encounter Summary ---
Author Organization [facility] and [facility] Address [address] [place] [phone] Care Team Providers Care Traffic Recorder Name Role Phone Caitlyn Bowie MD Primary Care Provider +1- [phone] Encounter Details Date Type Department Care Team (Late st Contact Info) Description 06/17/2016 Scanned Document [facility] Health Information Management [address] [place] [phone] External, Provider Social History Tobacco Use [...] Telemedicine Cancer Center at [facility] [address] [facility] [address] [place], [place] [phone] Ronald Mills MD [address] [facility] A[address] [place] [address] documented as of this encounter Visit Diagnoses Not on filedocumented in this encounter Additional Health Concerns Infection Onset Date Last Indicated Resolved Time COVID-19 03/05/2022 03/05/2022 03/15/2022 7:18 PM EDT documented as of this encounter Care Teams Traffic Recorder Relationship Specialty Start Date End Date Caitlyn Bowie MD [address] [facility] 1 [place] [address] PCP - General Internal Medicine 05/06/21 Henry Kelly MD Pulmonary Department 175 [facility], [address] [place] [address] Physician Pulmonary Disease 09/06/17 06/22/20 documented as of this encounter
--- OUTSIDE RECORDS SUMMARY | 2025-04-09 12:00 | XMS_ITS | Encounter Summary ---
Author Organization [facility] Address [address] [place] [address] Care Team Providers Care Wool Shearer Name Role Phone Caitlyn Bowie MD Primary Care Provider +1- [phone] Encounter Details Date Type Department Care Team (Late st Contact Info) Description 07/27/2016 Scanned Document Thoracic Oncology Program at [address] [address] Suzy Kong MD [address] [place] [phone] Social History Tobacco Use Types Packs/Day [...] PM EDT Telemedicine Cancer Center at [address] [place], [place] [phone] Ronald Mills MD [address] [facility] [address] [place] [address] documented as of this encounter Visit Diagnoses Not on filedocumented in this encounter Additional Health Concerns Infection Onset Date Last Indicated Resolved Time COVID-19 03/05/2022 03/05/2022 03/15/2022 7:18 PM EDT documented as of this encounter Care Teams Wool Shearer Relationship Specialty Start Date End Date Caitlyn Bowie MD [address] [facility] [address] [place] [address] PCP - General Internal Medicine 05/06/21 Henry Kelly MD Pulmonary Department 175 [facility], [address] [place] [address] Physician Pulmonary Disease 09/06/17 06/22/20 documented as of this encounter
== END 2025-04-09 09:53 | disposition home or self-care (01) ==
LOC: HO.LAB 09:52
PROVIDERS: Absent Provider Hospitalist; PCP Hospitalist; Visit Provider Internal Medicine Cardiovascular Disease
DX: Z13.89 Encounter for screening for other disorder (principal)

== ENCOUNTER 2025-04-10 12:43 | Outpatient (AMB) | payer MEDICARE, SELFPAY ==
--- NOTE | 2025-04-10 13:01 | MHC.OFFVIS ---
Vital Signs 04/10/25 13:03 Height 5 ft 2 in BMI Reason not done Patient refused/unable BP 128/56 L Blood Pressure Location Lt brachial Position Sitting Intake Visit Reasons: COPD Flexo Operator Required: No Accompanied by: Self / Same As Patient Allergies morphine Allergy (Severe, Verified 04/10/25 13:05) Itching avocado (AVOCADO) Allergy (Mild, Verified 04/10/25 13:05) ITCHY THROAT, RASH azithromycin (AZITHROMYCIN) Allergy (Mild, Verified 04/10/25 13:05) ITCHY THROAT, RASH barium iodide (BARIUM IODIDE) Allergy (Mild, Verified 04/10/25 13:05) ITCHY THROAT, RASH barium sulfate Allergy (Mild, Verified 04/10/25 13:05) Itch bee pollen (BEE STINGS) Allergy (Mild, Verified 04/10/25 13:05) ITCHY THROAT, RASH ciprofloxacin (From CIPRO) Allergy (Mild, Verified 04/10/25 13:05) ITCHY THROAT, RASH clarithromycin (From BIAXIN) Allergy (Mild, Verified 04/10/25 13:05) ITCHY THROAT, RASH diatrizoate meglumine (From GASTROGRAFIN) Allergy (Mild, Verified 04/10/25 13:05) ITCHY THROAT, RASH diatrizoate sodium (From GASTROGRAFIN) Allergy (Mild, Verified 04/10/25 13:05) ITCHY THROAT, RASH diclofenac (From VOLTAREN) Allergy (Mild, Verified 04/10/25 13:05) ITCHY THROAT, RASH erythromycin base (ERYTHROMYCIN BASE) Allergy (Mild, Verified 04/10/25 13:05) ITCHY THROAT, RASH gentamicin (GENTAMICIN) Allergy (Mild, Verified 04/10/25 13:05) ITCHY THROAT, RASH Iodinated Contrast Media (IVP DYE) Allergy (Mild, Verified 04/10/25 13:05) ITCHY THROAT, RASH levofloxacin (From LEVAQUIN) Allergy (Mild, Verified 04/10/25 13:05) ITCHY THROAT, RASH metronidazole (From FLAGYL) Allergy (Mild, Verified 04/10/25 13:05) ITCHY THROAT, RASH moxifloxacin (From AVELOX) Allergy (Mild, Verified 04/10/25 13:05) ITCHY THROAT, RASH Penicillins (PENICILLINS) Allergy (Mild, Verified 04/10/25 13:05) ITCHY THROAT, RASH shrimp (SHRIMP) Allergy (Mild, Verified 04/10/25 13:05) ITCHY THROAT, RASH Sulfa (Sulfonamide Antibiotics) (SULFA (SULFONAMIDE ANTIBIOTICS)) Allergy (Mild, Verified 04/10/25 13:05) ITCHY THROAT, RASH vancomycin (VANCOMYCIN) Allergy (Mild, Verified 04/10/25 13:05) ITCHY THROAT, RASH clindamycin Adverse Reaction (Intermediate, Verified 04/10/25 13:05) Unknown HPI Comments Details: The patient is a 80 y/o woman with a complicated history which includes: COPD, KANDY, pulmonary HTN, history pulmonary emboli on chronic anticoagulation, lung CA Stage IIIA s/o neoadjuvant chemoradiation and Left upper lobe lobectomy. She did have a CT scan today that I personally reviewed. Has not been personally read by the radiologist. Based on my reading she has some pulmonary nodules some that are new 4 mm in the right major fissure area. Other nodules are stable. Other post operative and pulmonary fibrotic changes stable. The patient should get a CT scan in 6 months. Also to note, she did not tolerate the Incruse nor budesonide. Will consider Daliresp. She was admitted to [facility] with diverticulitis. She was placed on IV antibiotics but she left against medical advice because she did not like the antibiotic options. In the meantime she was having some issues with coughing up some blood. She is also concerned because on her visit to [facility] she did have a CT scan of the chest and she was told that she had significant scarring of her lungs in addition to lung volume loss. I have not looked at the CT scan back in reassured her that she has had this radiation fibrosis for long time and volume loss due to the scarring was present before. We did review her perfusion scan demonstrating no defects to suggest any blood clots. Interestingly in the quantitative study the patient did have 81% of the blood flow going to her right lung and 18% going to the left. This is likely due to her previous surgery and also radiation changes. 03/21/2024 the patient is here for pulmonary follow-up visit. She has multiple complaints. She is entirely seems any physicians. She is still dealing with the wound getting plenty of wound care 4. Still getting debrided. In addition to that she has had a productive cough. The phlegm is now clear but thick difficult to expectorate. Sometimes feel like it is dripping for nasal passages down like a postnasal drip. The patient is currently on cefpodoxime. She is finishing a course. We did try to get sputum in the office but she was not able to do so. I did give her a cup in order for her to be doing her own time. We will be able to look for both Gram stain culture and also AFB. The patient also had a chest x-ray which I personally reviewed and also compared to her previous x-rays. It appears that she has worsening left-sided pleural effusion. Hard to know that is long as very affected on that side there is any active disease otherwise. She has not had a CT scan since October. In view of the worsening chest x-ray in the ongoing symptoms will go ahead and request a CT scan time. The patient also could try some Mucomyst. I will send some to the pharmacy to see if we can get it. She understands that is hard to get. When she gets she can use it twice a day for CPT to see if this helps clear the secretions that gets that within her airways. In addition to that the patient has been using the BiPAP. The BiPAP therapy has been affecting beneficial. She does use it for more than 4 hours a night. However, she does have a component of hypercarbia and she would do better with the noninvasive ventilator. Currently she is set up for sleep study at [facility] coming up. Hopefully they can do a split study and try titrate her figure out what her best form of therapy it is. At some point though if she continues on the BiPAP will need to replace it because his older than 5 years. 05/09/2024 the patient is here for a pulmonary follow-up visit. Overall she is doing well from a respiratory status. She recently did have a CT scan of the chest that at [facility]. I did personally reviewed. Appears to be stable. She does have the chronic effusion in the parenchymal disease. This is all stable. She does have a small compression fracture though. Has significant osteopenia. She did have blood work with her automatic buffer recently. Her antiphospholipid antibodies and anticardiolipin antibodies continue antiphospholipid antibody elevated. Her homocystine that was also elevated. She is going to start folic acid. She is concerned because her D-dimer was significantly elevated. Although she did have trauma to the legs. She had lower extremity Dopplers which were negative for any clots which is reassuring. Previous he Q scans have been reassuring. Will go ahead and repeat her blood test to see make sure that the D-dimer is coming down. If the D-dimer continues to be elevated then will do additional testing for potential occult clots. She continues on the Coumadin with a goal level 1.5-2. I do believe that she should stay on it based on the fact that she has significant symptoms and coming off the medicine may result in more security of the results specially since the Coumadin has been working for her chronic thromboembolic disease. From the wound standpoint the patient is doing better from the wound healing on her right lower extremity although she recently had another the trauma to the left. She is also dealing with a boil or a growth on the perineal area. She is going to be seeing stain applicator for that. 08/08/2024 the patient is here for a pulmonary follow-up visit. Overall she is doing okay. She does have issues with her balance and also issues with dysuria. The patient has been also having issues with her oxygen that was at nighttime. She has been noticing worsening hypoxia. She has been using her BiPAP 16/10. She does use it with her oxygen. The patient did have a download recently and her AHI is up to 10 cm. She also had a blood gas demonstrating elevations in her CO2. Therefore, will go ahead and increase her BiPAP settings from 16-10 to 18/12. This BiPAP is about 6 years old now. The patient likely needs a replacement. Will go ahead and refer her to sleep in [place] in order for her to undergo a split study in order to get her a new PAP therapy. During the titration study component will be helpful to see if she is better off with AVAPS versus BiPAP. We did try her underlying AVAP but she could not tolerate it. She followed she did not have enough teaching. Therefore, will go ahead and increase the pressures of her BiPAP monitor her AHI and recheck a venous gas while we wait for her to see a certified sleep specialist in [place]. In the meantime she continues with her diuresis. Will go ahead and check a blood work. The patient also had a CT scan of the chest back in 03/29/2024 demonstrating no acute disease just a chronic changes. Will plan to talk about any additional imaging during her next visit. She will continue with current respiratory regimen for now. 09/11/2024 the patient is here for hospital follow-up visit. Apparently she was in the ER with worsening shortness of breath and cough. She was at [facility]. There she did have blood work. Her brain atretic peptide was significantly elevated at 100. She also did have a CT scan of the chest which I personally reviewed. She does have just chronic findings which include her radiation fibrosis decreased lung volume on the left along with the small pleural effusion on the left with the heart shifted Leftward as well volume loss. She was diagnosed with bronchitis and the patient was discharged. We did review further blood work and her sedimentation rate has been climbing slowly now at 51. in addition to that she does have a history of positive CLARA and now she is complaining of some pleuritic chest discomfort bringing up the question of underlying connective tissue disease resulting in some pleuritis. In addition to that she has been feeling episodes of increased heart rate and shortness of breath. I suspect that is likely a pulmonary vascular component. Her last echocardiogram demonstrating moderate degree of pulmonary hypertension. Unfortunately, she did not tolerate pulmonary vasodilators because if the significant amount of increase in the volume to the left ventricle then ultimately resulting in congestive heart failure. Therefore hold off on that. The patient is also anxious. She is not sleeping well. She feels that she is going to fall asleep and not wake up. She is willing to try small dose of Ambien. This will help her fall asleep and I explained to her that is not going to suppress her respiratory drive. We also did look at her blood gas that she had initially when she showed up and she had a severe case of respiratory alkalosis and she was able to breathe down her pCO2 down to 24 which is pretty significant. In addition to that she is willing to try small dose of Plaquenil to treat her for underlying pleuritis and pain and see if this can provide some relief as we repeat her blood work. She will be following up with Hematology. 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 I did print out the blood work so she can talk to her automatic buffer in the meantime will go ahead and repeat her blood work as well. She continues to be on high dose of diuretics. Volume status seems to be better at this time. She continues use the oxygen with good effect. Sometimes her oxygen drops because of her cardiopulmonary disease. She does not have much pulmonary reserve. In with the pulmonary hypertension along with diastolic dysfunction this quit quickly result in hypoxia. She can take breaks though when she is sitting as lungs are oxygens above 90%. 11/04/2024 the patient is here for a pulmonary follow-up visit. Since we last spoke she started developing abdominal pain. She did go to the ER where she was diagnosed with diverticulitis based on a CAT scan showing fat stranding close to the areas of diverticulosis in the left descending colon. The patient was not given any antibiotics because of all her allergies. She then followed up with the GI doctor called and it was recommended that she go back to the ER. She has not started any therapy for this. She has been feeling a little dehydrated from the lack of p.o. intake as she is doing significant amount of bowel rest. She has tolerated cephalosporins in the past. I will go ahead and send her Vantin to the pharmacy that she can use. She has also tolerated ceftriaxone in the hospital that has also been helpful for her. She does not tolerate clindamycin anymore and unfortunately she does not call tolerate the Flagyl either so we can not provide her with any anaerobic coverage. Still though Vantin has a broad spectrum coverage and should help. If her symptoms worsen though she should definitely go to the ER specially she is getting dehydrated or for abdominal comfort is worse or if she started developing fevers or chills or any other concerning symptoms. As far as her sleep apnea the patient did undergo a sleep study. This was done in [place]. It was recommended that based on her sleep apnea noted on his study that she start CPAP therapy. I did not see that they checked the end-tidal CO2 but at this point I think is reasonable for her to start CPAP on 2 L of oxygen and if she does not tolerate that if she fails CPAP we can quickly switch over to BiPAP anyway. Will go ahead and request a replacement APAP through [employer]. And therefore she can get her supplies as well. If she has a machine prior to her next appointment she can always bring it in so we can review with her. From a respiratory status she is okay she is using her oxygen with good effect. The patient continues on the Lasix as well she is taking 160 mg daily total. Because of her significant weight loss decreased p.o. intake I did have her only take half the dose for couple days in order for her to read a Barkley very and then go back to the full dose when she is able to take by mouth. 11/21/2024 the patient is here for pulmonary follow-up visit. The patient overall has been feeling better from the diverticulitis. She did complete the Vantin. She still has some on hold in case her symptoms worsened again. She will be following up with Dr. Fang soon. In the meantime respiratory status is stable. She does have bowel some dyspnea and hypoxia. She is already on high dose of diuretics. She is going to be following up a heart failure specialist. I do believe that is [facility] may be a potential option for her. In the meantime she continues use her respiratory therapy with good effect. She continues use her oxygen did effect. She also continues use the BiPAP every night. BiPAP therapy has been affecting beneficial. She does use it for more than 4 hours a night. She is complaining of a dry mouth. I did increase the humidity a little bit. She can always increase in more from home. In the meantime her BiPAP is very old. Will request a replacement BiPAP at this time with a local [employer] company, [employer]. Otherwise patient follow-up in 2-3 months. If she has any issues prior to this she will call for an earlier assessment. 12/26/2024 the patient is here for sick visit. The patient had a an event at home where she was exposed to a smoke due to vinegar and also baking soda as she was trying to clean a pot. She did develop some difficulty breathing and a significant cough. She did call the office and we had increased her prednisone to 20 mg. Seems that she is getting better although she has a still barky cough. Still feels like she has a very sore trachea. Likely from respiratory dysfunction syndrome from the initial exposure to the fumes and smoke. She is having hard time sleeping having some chest discomfort. Will try some cough medication with codeine to try to alleviate her symptoms. She is going to wean down to the baseline prednisone of 5 mg. In the meantime she continues have daytime drowsiness. She has been using just oxygen though. She has had 2 sleep studies demonstrating no evidence of any significant sleep apnea. Therefore, will hold off on CPAP therapy at this time. Will go ahead and check a blood gas to see if her CO2 is elevated. If her CO2 is elevated then we have to consider treatment for chronic hypercarbic respiratory failure. The patient also has been complaining of dyspnea on exertion. Moderate severity. Will go ahead and start her on PFTs and pulmonary rehabilitation. 01/02/2025 the patient is here for a pulmonary follow-up visit. The patient has been using the BiPAP. The BiPAP therapy appears to be affecting beneficial by though she is swallowing a lot of air and getting some bloating. I did decrease the pressures were 18/12 to 16/8. She also had a blood gas demonstrating a pCO2 of 59 mmHg. The patient therefore benefits from the BiPAP. The machine now is older and needs to be replaced. We will go ahead and request an overnight oximetry to see if we can have her qualify for BiPAP again with [facility]. Otherwise we may have to stay with [facility] about getting a replacement BiPAP through them. The patient did have pulmonary function studies and I did personally reviewed him. Appears to have interval worsening overall with now moderate obstruction consistent with moderate COPD and also moderate restrictive ventilatory defect which is also worse. In addition to the severe diffusion impairment likely secondary to the above findings and her underlying pulmonary vascular disease. This all explained the need for unconfirmed Ingrid for the oxygen supplementation. She continues to use a nebulizer. Her machine is no longer working correctly therefore we will request a replacement. And I do feel strongly about her performing pulmonary rehabilitation. In the meantime she did have a twisting of her ankle and she is having some right ankle pain and bruising so therefore will have her get an x-ray of that before she starts rehab. 02/18/2025 the patient is here for a pulmonary follow-up visit. She is still struggling with her respiratory symptoms. Sometimes developing chest tightness and not sure if his cardiac or pulmonary. The last time she was in the hospital was back in early February. She had an x-ray which was without any acute issues just a chronic left-sided pleural effusion. Her blood work was okay except for slightly elevated troponins which have been elevated since October. The patient has been on the diuretics. She seems to be tolerating them well in her volume status is overall better. Recently though she was having issues with her left eye having some eye pain and blurriness and she went to see the substance abuse specialist and she was diagnosed with optic neuritis. She does have a history of connective tissue conditions and question of multiple sclerosis when she was very young. Therefore, is not clear at this point but she did have increased dose of prednisone given. And she is going to taper it down. I did encourage her to make sure she follows up with ophthalmology to make sure that the neuritis subsides. In the meantime the patient is been using the BiPAP. Unfortunately though we did an overnight oximetry which still showing significant hypoxia and she will need to have increased oxygen needs with the BiPAP and also she had a blood gas demonstrating an elevated pCO2 of 61 mmHg suggesting that she is failing BiPAP. The patient needs to go on a noninvasive ventilator. She does not have obstructive sleep apnea. The patient does have chronic hypoxic and hypercarbic respiratory failure due to her COPD. And at this point she carries a poor prognosis and high risk so hospitalizations. Therefore, she needs to be on a noninvasive ventilator to improve her gas exchange decrease her hospitalizations and improve her prognosis. 03/28/2025 the patient is here for sick visit. She has been developing worsening cough chest tightness pleuritic chest pain primarily on the left side. Moderate severity. She also complains of a sore throat. The cough itself is been croupy in nature. Difficult to expectorate. The patient did call we start her on doxycycline in addition to increase her prednisone baseline. She did have a chest x-ray in addition to a sinus x-ray. Sinuses were clear and the chest x-ray demonstrates a persistent left-sided pleural effusion which appears to be just a slight increased. The patient also had blood work. She does have an elevated white count with a decreasing the lymphocyte count suggesting the possibility of a viral syndrome. We did test her for flu RSV and COVID in the there were all negative. The patient does have some wheezing on the left lung which is asymmetrical. Likely has a component of tracheobronchitis with a croupy cough. The patient will continue on the doxycycline. In the meantime will go ahead and increase the prednisone to 20 mg and slowly taper it down. The patient also will provide cough syrup. Will plan to do a CAT scan once she is better to follow-up with her nodular densities and history of cancer in the abnormal chest x-ray. 04/10/2025 the patient is here for a pulmonary follow-up visit. Overall she is feeling little better from the respiratory status. Her chest tightness has subsided and the cough has a sinus. She is tapering down on the prednisone. The patient continues use her respiratory therapy with partial improvement. She is also struggling with her sleep. The patient does have significant history of sleep apnea and also chronic hypercarbic respiratory failure. Unfortunately she had a sleep study recently but it did not measure her end-tidal CO2 is therefore it is suboptimal and nondiagnostic. Will request a repeat sleep study at [facility] in order to follow her end-tidal CO2 and assess her for iVAPS were AVAP therapy. She has had 2 episodes of chest heaviness along with dizziness with a near syncopal type of reaction. The symptoms last sec but are pretty significant. She did try to get a Holter monitoring the past but she had an allergic reaction to the tape. She will follow-up with Cardiology regarding any other alternative testing that she can have done to assess for cardiac arrhythmias. The patient follow-up in 6-8 weeks. [facility] Medical History Chest pain Chest pain Ankle pain Chronic hypercapnic respiratory failure KANDY treated with BiPAP COPD (chronic obstructive pulmonary disease) Open wound Warfarin anticoagulation Complex sleep apnea syndrome Leg pain Anemia Tachycardia DVT (deep venous thrombosis) Compression fracture of body of thoracic vertebra ASD (atrial septal defect) Pleuritic chest pain History of COVID-19 Chronic anticoagulation Hypothyroidism GERD (gastroesophageal reflux disease) Hyperlipidemia Hypertension Factor 5 Leiden mutation, heterozygous History of non-ST elevation myocardial infarction (NSTEMI) Hypoxia Anxiety PTSD (post-traumatic stress disorder) Hemoptysis Dyspnea Tracheobronchitis CLARA positive Diverticulitis Allergic bronchitis (HFpEF) heart failure with preserved ejection fraction Subarachnoid bleed Insomnia Anti-phospholipid antibody syndrome Hypogammaglobulinemia Chronic respiratory failure Arterial insufficiency of lower extremity Complex regional pain syndrome i of right lower limb Post herpetic neuralgia Pulmonary hypertension Pericardial effusion Pulmonary emboli Pleural effusion Radiation fibrosis of lung Pneumonitis Pulmonary nodules Lung cancer Surgical History History of colonoscopy History of lung surgery History of tonsillectomy History of hysterectomy S/P mitral valve clip implantation History of cardiac cath Family History Sister No problems noted. Mother Cardiovascular disease Daughter Tachycardia Other KANDY (obstructive sleep apnea) Social History Household Members: Other Housing: Intermediate Do you presently have visiting nurse or other home services: Yes (at home had W[employer]PLAY DES[employer]ER that came to visit her) Alcohol intake: never Comment: stand by assist with ambulation Patient Tobacco Use Status: Never used Tobacco Second Hand Smoke Exposure: No Advance Directives Date on File: 06/15/22 service: No Current occupational status: retired Review of Systems Const Denies chills, Denies fatigue, Denies fever(s), Denies weight gain and Denies weight loss Eyes Denies change in vision ENT Denies dizziness Card Reports chest pain, Reports leg edema, Denies lightheadedness, Denies palpitations, Reports dyspnea on exertion, Denies orthopnea and Denies other Resp Reports cough, Reports pain on inspiration, Reports pain with cough, Reports dyspnea on exertion and Reports wheezing GI Denies hematochezia and Denies change in stool character Musc Denies abnormal gait, Denies muscle weakness, Denies numbness, Denies radiating pain into limb and Denies tingling Skin/Breast Reports change in pigmentation, Reports skin swelling and Reports unusual bruising Neuro Denies abnormal gait, Denies dizziness, Denies numbness and Denies tingling Psych Reports depression Endo Denies fatigue and Denies palpitations Aller/Immun Reports wheezing Physical Exam Vital Signs: Last Vital Signs BP 128/56 L 04/10/25 13:03 Last Vital Signs Temp 97.7 F 06/20/22 08:00 Pulse 90 06/20/22 08:00 Resp 16 06/20/22 08:00 BP 137/60 06/20/22 08:00 Pulse Ox 93 06/20/22 08:00 O2 Del Method 06/20/22 08:00 O2 Flow Rate 2 06/20/22 08:00 FiO2 45 06/14/22 11:07 BMI result Body Mass Index 23.0 Const General: cooperative, comfortable, alert and awake Orientation/consciousness: patient oriented x3 HEENT Head: Yes atraumatic Eyes General: appearance normal, both eyes and all related structures Neck Neck: Yes trachea midline, Yes supple and Yes no JVD Chest Chest palpation & inspection: tenderness rib (right side) Resp Effort & Inspection: normal respiratory effort and No prolonged expiratory phase Auscultation: no rales, no rhonchi, no wheezes and diminished lung sounds Cardio Rate: regular rate Rhythm: regular rhythm Heart sounds: S1 normal heart sound present and S2 normal heart sound present GI Palpation (GI): Soft to palpation and Tenderness to palpation present (GI) in the LLQ Auscultation: normal bowel sounds Skin General skin exam: purpura and scars Neuro General: patient oriented x3 and no focal motor deficits Extrem Right lower extremity: edema Assessment & Plan Assessment & Plan (1) COPD (chronic obstructive pulmonary disease): Code(s): J44.9 - Chronic obstructive pulmonary disease, unspecified Category: Medical Qualifiers: COPD type: chronic bronchitis (2) Cough: Code(s): R05.9 - Cough, unspecified Category: Medical Qualifiers: Cough type: subacute Qualified Code(s): R05.2 - Subacute cough (3) Chronic hypercapnic respiratory failure: Code(s): J96.12 - Chronic respiratory failure with hypercapnia Category: Medical (4) Pulmonary hypertension: Comment: severe based on RHC, moderate based on recent echo Code(s): I27.20 - Pulmonary hypertension, unspecified Category: Medical (5) Pulmonary nodules: Code(s): R91.8 - Other nonspecific abnormal finding of lung field Category: Medical (6) Chronic respiratory failure: Code(s): J96.10 - Chronic respiratory failure, unspecified whether with hypoxia or hypercapnia Category: Medical Qualifiers: Respiratory failure complication: hypoxia and hypercapnia Qualified Code(s): J96.11 - Chronic respiratory failure with hypoxia; J96.12 - Chronic respiratory failure with hypercapnia (7) Radiation fibrosis of lung: Code(s): J70.1 - Chronic and other pulmonary manifestations due to radiation Category: Medical (8) (HFpEF) heart failure with preserved ejection fraction: Code(s): I50.30 - Unspecified diastolic (congestive) heart failure Category: Medical Qualifiers: Heart failure chronicity: chronic Qualified Code(s): I50.32 - Chronic diastolic (congestive) heart failure (9) Lung cancer: Code(s): C34.90 - Malignant neoplasm of unspecified part of unspecified bronchus or lung Category: Medical Qualifiers: Laterality: left Lung location: upper lobe of lung Qualified Code(s): C34.12 - Malignant neoplasm of upper lobe, left bronchus or lung (10) Pleural effusion: Code(s): J90 - Pleural effusion, not elsewhere classified Category: Medical (11) KANDY (obstructive sleep apnea): Code(s): G47.33 - Obstructive sleep apnea (adult) (pediatric) Category: Medical Plan complete prednisone 20mg with taper, then, prednisone 2.5mg QOD cough medicine Ambien for sleep continue Advair ASHA as needed continue ASHA (xopenex) as needed CPT with acapella valve fluticasone Oxygen 2L/pulse with activity and sleep. POC Inogen G5 in [place] [facility] [place]ires[place] as tolerated ABG CT chest declined Ohtuvayre stopped Pulmonary rehab F/U 3-6 weeks Orders: Orders RT PSG in-lab sleep study Today G47.33 - Obstructive sleep apnea (adult) (pediatric), J44.1 - Chronic obstructive pulmonary disease with (acute) exacerbation, J96.12 - Chronic respiratory failure with hypercapnia Coding Level of Care Code Est Pt Level 5 (51577) Complex EM visit Add On G2211 Diagnoses COPD (chronic obstructive pulmonary disease) J44.9 COPD type: chronic bronchitis Subacute cough R05.2 Cough type: subacute Chronic hypercapnic respiratory failure J96.12 Pulmonary hypertension I27.20 Pulmonary nodules R91.8 Chronic respiratory failure with hypoxia and hypercapnia J96.11; J96.12 Respiratory failure complication: hypoxia and hypercapnia Radiation fibrosis of lung J70.1 Chronic heart failure with preserved ejection fraction I50.32 Heart failure chronicity: chronic Malignant neoplasm of upper lobe of left lung C34.12 Laterality: left Lung location: upper lobe of lung Pleural effusion J90 KANDY (obstructive sleep apnea) G47.33 Time Spent (min) 20
[2025-04-10 13:03] VITALS: BP 128/56
--- OUTSIDE RECORDS SUMMARY | 2025-04-10 14:06 | XMS_ITS | Encounter Summary ---
Author Organization [facility] and [facility] Address [address] [place] [address] Care Team Providers Care Stock Order Lister Name Role Phone Caitlyn Bowie MD Primary Care Provider +1- [phone] Encounter Details Date Type Department Care Team (Late st Contact Info) Description 04/18/2018 Scanned Document [facility] Health Information Management [address] [place] [address] External, Provider Social History Tobacco Use Types [...] [facility] 240 [facility] Building [address] [place], [place] [id number] Ronald Mills MD 240 [facility] A1 [place] [address] documented as of this encounter [...] as of this encounter Care Teams Stock Order Lister Relationship Specialty Start Date End Date Caitlyn Bowie MD 3400 [facility] 1 [place] [address] PCP - General Internal Medicine 05/06/21 Henry Kelly MD Pulmonary Department 175 [facility], [address] [place] [address] Physician Pulmonary Disease 09/06/17 06/22/20 documented as of this encounter
--- OUTSIDE RECORDS SUMMARY | 2025-04-10 14:06 | XMS_ITS | Encounter Summary ---
Author Organization [facility] and [facility] Address [address] [place] [address] Care Team Providers Care Tentering Machine Off Bearer Name Role Phone Caitlyn Bowie MD Primary Care Provider +1- [phone] Encounter Details Date Type Department Care Team (Late st Contact Info) Description 11/19/2021 Scanned Document Cardiovascular Medicine at [address] [place] [address] Norma Renee MD [address] [place] [phone] Social History Tobacco Use Types Packs/Day [...] PM EDT [facility] at [address] [place] [address] Ronald Mills MD 240 [facility] [address] [place] [address] documented as of this encounter Visit Diagnoses Not on filedocumented in this encounter Additional Health Concerns Infection Onset Date Last Indicated Resolved Time COVID-19 03/05/2022 03/05/2022 03/15/2022 7:18 PM EDT Assessment Noted Time PHQ-9 Depression Total Score: 2 11/07/19 19 2:06 PM EDT documented as of this encounter Care Teams Tentering Machine Off Bearer Relationship Specialty Start Date End Date Caitlyn Bowie MD [address] [address] PCP - General Internal Medicine 05/06/21 documented as of this encounter
--- OUTSIDE RECORDS SUMMARY | 2025-04-10 14:06 | XMS_ITS | Encounter Summary ---
Author Organization [facility] and [facility] Address [address] [place] [address] Care Team Providers Care Lawn Care Technician Name Role Phone Caitlyn oBwie MD Primary Care Provider +1- [phone] Encounter Details Date Type Department Care Team (Late st Contact Info) Description 04/03/2018 Scanned Document [facility] [address] [place] [phone] Provider, historical . Social History Tobacco Use [...] [facility] 240 [facility] Building [address] [place], [place] [phone] Ronald Mills MD [address] [place] [address] [address] [place] [address] documented as of this encounter [...] documented as of this encounter Care Teams Lawn Care Technician Relationship Specialty Start Date End Date Caitlyn Bowie MD 3400 [facility] 1 [place] [address] PCP - General Internal Medicine 05/06/21 Henry Kelly MD Pulmonary Department 175 [facility], [address] [place] [address] Physician Pulmonary Disease 09/06/17 06/22/20 documented as of this encounter
--- OUTSIDE RECORDS SUMMARY | 2025-04-10 14:06 | XMS_ITS | Encounter Summary ---
Author Organization [facility] and [facility] Address [address] [place] [address] Care Team Providers Care Deck Builder Name Role Phone Caitlyn Bowie MD Primary Care Provider +1- [phone] Encounter Details Date Type Department Care Team (Late st Contact Info) Description 04/16/2018 Scanned Document [facility] Health Information Management [address] [place] [address] External, Provider Social History Tobacco Use Types [...] at [facility] 240 [facility] Building [address] [place], [place] [phone] Ronald Mills MD 240 [facility] [address] [place] [address] documented as of this encounter Visit Diagnoses Not on filedocumented in this encounter Additional Health Concerns Infection Onset Date Last Indicated Resolved Time COVID-19 03/05/2022 03/05/2022 03/15/2022 7:18 PM EDT documented as of this encounter Care Teams Deck Builder Relationship Specialty Start Date End Date Caitlyn Bowie MD 3400 [facility] 1 [place] [address] PCP - General Internal Medicine 05/06/21 Henry Kelly MD Pulmonary Department 175 [facility], [address] [place] [address] Physician Pulmonary Disease 09/06/17 06/22/20 documented as of this encounter
--- OUTSIDE RECORDS SUMMARY | 2025-04-10 14:06 | XMS_ITS | Encounter Summary ---
Author Organization [facility] and [facility] Address [address] [place] [address] Care Team Providers Care Care Support Representative Name Role Phone Caitlyn Bowie MD Primary Care Provider +1- [phone] Encounter Details Date Type Department Care Team (Late st Contact Info) Description 03/14/2018 Scanned Document [facility] Health Information Management [address] [place] [address] External, Provider Social History Tobacco Use Types [...] Center at [facility] 240 [facility] Building [address] [place], [place] [phone] Ronald Mills MD [address] [place] [address] [address] [place] [address] documented as of this encounter [...] [facility] 1 [place] [address] PCP - General Internal Medicine 05/06/21 Henry Kelly MD Pulmonary Department 175 [facility], [address] [place] [address] Physician Pulmonary Disease 09/06/17 06/22/20 documented as of this encounter
--- OUTSIDE RECORDS SUMMARY | 2025-04-10 14:06 | XMS_ITS | Clinical Summary ---
Author Organization [facility] Address [address] [place] [address] Care Team Providers Care Pediatric Acute Care Unit Nurse Name Role Phone Caitlyn Bowie MD Primary Care Provider +1- [phone] Allergies Active Allergy Reactions Criticality Noted Date [...] Breath High 05/09/2008 Bronchospasm or Wheezing Ipratropium [place] Unknown/Patient and Family Unable to Define Medium [...] 1 capsule by mouth daily. Active B Wvtubwa-F-Hapsv Acid (STRESS 500 B-COMPLEX PO) Take 1 [...] Encounters Date Type Department Care Team Description 04/08/2025 Telephone [facility] Neurology Ophthalmology [address] [address] Yary Whitten DO Medical Complaint 03/14/2025 Scanned Document [facility] Neurology Ophthalmology [address] [place] [phone] Shirley Chaidez PA-C 03/11/2025 Telephone [facility] Neurology Ophthalmology [address] [address] Yray Whitten DO Medical Complaint from Last 3 [...] 1-dose 75+ series) 2018 Influenza Vaccine 02/07/2025 06/12/2024, , 05/13/2022, Additional history exists COVID-19 Vaccine (2024- season) 2025 09/03/2020, 08/06/2020 Hepatitis B Vaccines Aged Out No long er eligible based on patient's age to complete this topic Insurance MEDICARE PART A & B MEDICARE PART A & B [facility] Care Teams Pediatric Acute Care Unit Nurse Relationship Specialty Start Date End Date Caitlyn Bowie MD [address] [place] [address] PCP - General Internal Medicine 03/20/23
--- OUTSIDE RECORDS SUMMARY | 2025-04-10 14:06 | XMS_ITS | Encounter Summary ---
Author Organization [facility] and [facility] Address [address] [place] [address] Care Team Providers Care Translator Name Role Phone Caitlyn Bowie MD Primary Care Provider +1- [phone] Encounter Details Date Type Department Care Team (Late st Contact Info) Description 12/28/2021 Scanned Document INTERFACE DEFAULT [address] [place] [address] System, Provider Not In Social History Tobacco [...] [facility] 240 [facility] Building [address] [place] [address] Ronald Mills MD [address] [place] [address] [address] [place] [address] documented as of this encounter Visit Diagnoses Not on filedocumented in this encounter Additional Health Concerns Infection Onset Date Last Indicated Resolved Time COVID-19 03/05/2022 03/05/2022 03/15/2022 7:18 PM EDT Assessment Noted Time PHQ-9 Depression Total Score: 2 11/07/19 19 2:06 PM EDT documented as of this encounter Care Teams Translator Relationship Specialty Start Date End Date Caitlyn Bowie MD [address] [address] PCP - General Internal Medicine 05/06/21 documented as of this encounter
--- OUTSIDE RECORDS SUMMARY | 2025-04-10 14:06 | XMS_ITS | Encounter Summary ---
Author Organization [facility] and [facility] Address [address] [place] [address] Care Team Providers Care Account Director Name Role Phone Caitlyn Bowie MD Primary Care Provider +1- [phone] Encounter Details Date Type Department Care Team (Late st Contact Info) Description 11/18/2021 Scanned Document INTERFACE DEFAULT [address] [place] [phone] System, Provider Not In Social History Tobacco [...] [facility] 240 [facility] Building [address] [place] [address] Ronald Mills MD [address] [place] [address] [address] [place] [address] documented as of this encounter Visit Diagnoses Not on filedocumented in this encounter Additional Health Concerns Infection Onset Date Last Indicated Resolved Time COVID-19 03/05/2022 03/05/2022 03/15/2022 7:18 PM EDT Assessment Noted Time PHQ-9 Depression Total Score: 2 11/07/19 19 2:06 PM EDT documented as of this encounter Care Teams Account Director Relationship Specialty Start Date End Date Caitlyn Bowie MD [address] [address] PCP - General Internal Medicine 05/06/21 documented as of this encounter
--- OUTSIDE RECORDS SUMMARY | 2025-04-10 14:06 | XMS_ITS | Encounter Summary ---
Author Organization [facility] and [facility] Address [address] [place] [address] Care Team Providers Care Aging Room Operator Name Role Phone Caitlyn Bowie MD Primary Care Provider +1- [phone] Encounter Details Date Type Department Care Team (Late Contact Info) Description 11/18/2021 Scanned Document [facility] Health Information Management [address] [place] [address] External, Provider Social History Tobacco Use Types [...] [facility] 240 [facility] Building [address] [place], [place] [phone] Ronald Mills MD [address] [place] [address] [address] [place] [address] documented as of this encounter Visit Diagnoses Not on filedocumented in this encounter Additional Health Concerns Infection Onset Date Last Indicated Resolved Time COVID-19 03/05/2022 03/05/2022 03/15/2022 7:18 PM EDT Assessment Noted Time PHQ-9 Depression Total Score: 2 11/07/19 19 2:06 PM EDT documented as of this encounter Care Teams Aging Room Operator Relationship Specialty Start Date End Date Caitlyn Bowie MD [address] [address] PCP - General Internal Medicine 05/06/21 documented as of this encounter
--- OUTSIDE RECORDS SUMMARY | 2025-04-10 14:06 | XMS_ITS | Encounter Summary ---
Author Organization [facility] Address [address] [place] [address] Care Team Providers Care Master Pilot Name Role Phone Caitlyn Bowie MD Primary Care Provider +1- [phone] Encounter Details Date Type Department Care Team (Late st Contact Info) Description 07/08/2020 Scanned Document [facility] Health Information Management [address] [place] [phone] External, Provider Social History Tobacco Use Types [...] [facility] 240 [facility] Building [address] [place], [place] [phone] Ronald Mills MD [address] [place] [address] [address] [place] [address] documented as of this encounter [...] as of this encounter Care Teams Master Pilot Relationship Specialty Start Date End Date Caitlyn Bowie MD [address] [address] PCP - General Internal Medicine 05/06/21 documented as of this encounter
--- OUTSIDE RECORDS SUMMARY | 2025-04-10 14:06 | XMS_ITS | Encounter Summary ---
Author Organization [facility] and [facility] Address [address] [place] [address] Care Team Providers Care Truck Railroad And Bus Motor Mechanic Name Role Phone Caitlyn Bowie MD Primary Care Provider +1- [phone] Encounter Details Date Type Department Care Team (Late Contact Info) Description 10/29/2021 Scanned Document [facility] Health Information Management [address] [place] [address] External, Provider Social History Tobacco Use Types [...] [facility] 240 [facility] Building [address] [place], [place] [phone] Ronald Mills MD [address] [place] [address] [address] [place] [address] documented as of this encounter [...] as of this encounter Care Teams Truck Railroad And Bus Motor Mechanic Relationship Specialty Start Date End Date Caitlyn Bowie MD [address] [address] PCP - General Internal Medicine 05/06/21 documented as of this encounter
--- OUTSIDE RECORDS SUMMARY | 2025-04-10 14:07 | XMS_ITS | Encounter Summary ---
Author Organization [facility] and [facility] Address [address] [place] [phone] Care Team Providers Care Computer Graphic Designer Name Role Phone Caitlyn Bowie MD Primary Care Provider +1- [phone] Encounter Details Date Type Department Care Team (Late st Contact Info) Description 09/15/2020 Scanned Document INTERFACE DEFAULT [address] [place] [address] System, Provider Not In Social History Tobacco [...] [facility] 240 [facility] Building [address] [place] [address] Ronald Mills MD [address] [place] [address] [address] [place] [address] documented as of this encounter [...] End Date Caitlyn Bowie MD [address] [address] PCP - General Internal Medicine 05/06/21 documented as of this encounter
--- OUTSIDE RECORDS SUMMARY | 2025-04-10 14:07 | XMS_ITS | Encounter Summary ---
Author Organization [facility] and [facility] Address [address] [place] [address] Care Team Providers Care Locomotive Boilermaker Name Role Phone Caitlyn Bowie MD Primary Care Provider +1- [phone] Encounter Details Date Type Department Care Team (Late st Contact Info) Description 07/28/2018 Scanned Document [facility] Health Information Management [address] [place] [address] External, Provider Social History Tobacco Use Types [...] [facility] 240 [facility] Building [address] [place], [place] [phone] Ronald Mills MD 240 [facility] A1 [place] [address] documented as of this encounter [...] documented as of this encounter Care Teams Locomotive Boilermaker Relationship Specialty Start Date End Date Caitlyn Bowie MD [facility]0 [facility] 1 [place] [address] PCP - General Internal Medicine 05/06/21 Henry Kelly MD Pulmonary Department 175 [facility], [address] [place] [address] Physician Pulmonary Disease 09/06/17 06/22/20 documented as of this encounter
--- OUTSIDE RECORDS SUMMARY | 2025-04-10 14:07 | XMS_ITS | Encounter Summary ---
Author Organization [facility] and [facility] Address [address] [place] [address] Care Team Providers Care Motion Picture Scene Builder Name Role Phone Caitlyn Bowie MD Primary Care Provider +1- [phone] Encounter Details Date Type Department Care Team (Late st Contact Info) Description 09/15/2020 Scanned Document Cancer [facility] at [address] [address] External, Provider Social History Tobacco Use Types [...] [facility] 240 [facility] Building [address] [place], [place] [phone] Ronald Mills MD [address] [place] [address] [address] [place] [address] documented as of this encounter [...] documented as of this encounter Care Teams Motion Picture Scene Builder Relationship Specialty Start Date End Date Caitlyn Bowie MD [address] [address] PCP - General Internal Medicine 05/06/21 documented as of this encounter
--- OUTSIDE RECORDS SUMMARY | 2025-04-10 14:07 | XMS_ITS | Encounter Summary ---
Author Organization [facility] Address [address] [place] [address] Care Team Providers Care Fender Mechanic Apprentice Name Role Phone Caitlyn Bowie MD Primary Care Provider +1- [phone] Reason for Visit * Reason Comments Triage Encounter Details Date Type Department Care Team (Late st Contact Info) Description 10/18/2021 Telephone [facility] at [address] [address] Ronald Mills MD [address] [place] [address] Triage Social History Tobacco Use Types [...] [facility] 240 [facility] Building [address] [place], [place] [address] Ronald Mills MD 240 [facility] Max [address] [place] [phone] documented as of this encounter Visit Diagnoses Not on filedocumented in this encounter Additional Health Concerns Infection Onset Date Last Indicated Resolved Time COVID-19 03/05/2022 03/05/2022 03/15/2022 7:18 PM EDT Assessment Noted Time PHQ-9 Depression Total Score: 2 11/07/19 19 2:06 PM EDT documented as of this encounter Care Teams Fender Mechanic Apprentice Relationship Specialty Start Date End Date Caitlyn Bowie MD [address] [address] PCP - General Internal Medicine 05/06/21 documented as of this encounter
--- OUTSIDE RECORDS SUMMARY | 2025-04-10 14:07 | XMS_ITS | Encounter Summary ---
Author Organization [facility] and [facility] Address [address] [place] [address] Care Team Providers Care Radioisotope Technician Name Role Phone Caitlyn Bowie MD Primary Care Provider +1- [phone] Encounter Details Date Type Department Care Team (Late st Contact Info) Description 07/26/2018 Scanned Document COUNTS INCLUDE 234 BEDS AT THE [facility] Health Information Management [address] [place] [address] External, Provider Social History Tobacco Use Types [...] Urgent Care 240 [facility] [address] [place], [place] [phone] Ronald Mills MD 240 [facility] A1 [place] [address] documented as of this encounter [...] as of this encounter Care Teams Radioisotope Technician Relationship Specialty Start Date End Date Caitlyn Bowie MD 3400 [facility] 1 [place] [address] PCP - General Internal Medicine 05/06/21 Henry Kelly MD Pulmonary Department 175 [facility], [address] [place] [address] Physician Pulmonary Disease 09/06/17 06/22/20 documented as of this encounter
--- OUTSIDE RECORDS SUMMARY | 2025-04-10 14:07 | XMS_ITS | Encounter Summary ---
Author Organization [facility] and [facility] Address [address] [place] [address] Care Team Providers Care Telephone Clerks Supervisor Name Role Phone Caitlyn Bowie MD Primary Care Provider +1- [phone] Encounter Details Date Type Department Care Team (Late st Contact Info) Description 02/20/2017 Scanned Document [facility] Health Information Management [address] [place] [address] External, Provider Social History Tobacco Use Types [...] [facility] 240 [facility] Building [address] [place], [place] [phone] Ronald Mills MD 240 [facility] Max [address] [place] [address] documented as of this encounter [...] as of this encounter Care Teams Telephone Clerks Supervisor Relationship Specialty Start Date End Date Caitlyn Bowie MD 3400 [facility] Max 1 [place] [address] PCP - General Internal Medicine 05/06/21 Henry Kelly MD Pulmonary Department 175 [facility], [address] [place] [address] Physician Pulmonary Disease 09/06/17 06/22/20 documented as of this encounter
--- OUTSIDE RECORDS SUMMARY | 2025-04-10 14:07 | XMS_ITS | Encounter Summary ---
Author Organization [facility] and [facility] Address [address] [place] [address] Care Team Providers Care Vice President Of Marketing Name Role Phone Caitlyn Bowie MD Primary Care Provider +1- [phone] Encounter Details Date Type Department Care Team (Late st Contact Info) Description 08/07/2018 Scanned Document [facility] Health Information Management [address] [place] [address] External, Provider Social History Tobacco Use Types [...] [facility] Building [address] [place], [place] [phone] Ronald Mills MD [address] [place] [address] [address] [place] [address] documented as of this encounter Visit Diagnoses Not on filedocumented in this encounter Additional Health Concerns Infection Onset Date Last Indicated Resolved Time COVID-19 03/05/2022 03/05/2022 03/15/2022 7:18 PM EDT documented as of this encounter Care Teams Vice President Of Marketing Relationship Specialty Start Date End Date Caitlyn Bowie MD 3400 [facility] 1 [place] [address] PCP - General Internal Medicine 05/06/21 Henry Kelly MD Pulmonary Department 175 [facility], [address] [place] [address] Physician Pulmonary Disease 09/06/17 06/22/20 documented as of this encounter
--- OUTSIDE RECORDS SUMMARY | 2025-04-10 14:07 | XMS_ITS | Encounter Summary ---
Author Organization [facility] and [facility] Address [address] [place] [address] Care Team Providers Care Felt Tipping Machine Tender Name Role Phone Caitlyn Bowie MD Primary Care Provider +1- [phone] Encounter Details Date Type Department Care Team (Late st Contact Info) Description 12/16/2016 Scanned Document [facility] Health Information Management [address] [place] [address] External, Provider Social History Tobacco Use Types [...] [facility] 240 [facility] Building [address] [place], [place] [phone] Ronald Mills MD 240 [facility] Max [address]1 [place] [address] documented as of this encounter [...] as of this encounter Care Teams Felt Tipping Machine Tender Relationship Specialty Start Date End Date Caitlyn Bowie MD 3400 [facility] 1 [place] [address] PCP - General Internal Medicine 05/06/21 Henry Kelly MD Pulmonary Department 175 [facility], [address] [place] [address] Physician Pulmonary Disease 09/06/17 06/22/20 documented as of this encounter
--- OUTSIDE RECORDS SUMMARY | 2025-04-10 14:07 | XMS_ITS | Encounter Summary ---
Author Organization [facility] and [facility] Address [address] [place] [address] Care Team Providers Care Restaurant Cook Name Role Phone Caitlyn Bowie MD Primary Care Provider +1- [phone] Encounter Details Date Type Department Care Team (Late Contact Info) Description 09/18/2020 Scanned Document [facility] Health Information Management [address] [place] [phone] External, Provider Social History Tobacco Use Types [...] [facility] 240 [facility] Building [address] [place], [place] [phone] Ronald Mills MD [address] [place] [address] [address] [place] [address] documented as of this encounter [...] as of this encounter Care Teams Restaurant Cook Relationship Specialty Start Date End Date Caitlyn Bowie MD [address] [address] PCP - General Internal Medicine 05/06/21 documented as of this encounter
--- OUTSIDE RECORDS SUMMARY | 2025-04-10 14:07 | XMS_ITS | Encounter Summary ---
Author Organization [facility] and [facility] Address [address] [place] [address] Care Team Providers Care Driver Retraining Instructor Name Role Phone Caitlyn Bowie MD Primary Care Provider +1- [phone] Encounter Details Date Type Department Care Team (Late st Contact Info) Description 12/16/2016 Scanned Document [facility] Health Information Management [address] [place] [address] External, Provider Social History Tobacco Use Types [...] 240 [facility] Building [address] [place], [place] [address] Ronald Mills MD 240 [facility] Max [address] [place] [address] documented as of this encounter [...] as of this encounter Care Teams Driver Retraining Instructor Relationship Specialty Start Date End Date Caitlyn Bowie MD 3400 [facility] 1 [place] [address] PCP - General Internal Medicine 05/06/21 Henry Kelly MD Pulmonary Department 175 [facility], [address] [place] [address] Physician Pulmonary Disease 09/06/17 06/22/20 documented as of this encounter
--- OUTSIDE RECORDS SUMMARY | 2025-04-10 14:07 | XMS_ITS | Encounter Summary ---
Author Organization [facility] and [facility] Address 20 [place] [address] Care Team Providers Care Steak Tenderizer Machine Name Role Phone Caitlyn Bowie MD Primary Care Provider +1- [phone] Encounter Details Date Type Department Care Team (Late st Contact Info) Description 05/14/2020 Documentation Hematology Program at [address] [address] Taya Nuno RN Social History Tobacco Use [...] PM EDT Telemedicine Cancer [facility] at [address] [place] [address] Ronald Mills MD [address] [place] [address] documented as of this encounter Visit Diagnoses Not on filedocumented in this encounter Additional Health Concerns Infection Onset Date Last Indicated Resolved Time COVID-19 03/05/2022 03/05/2022 03/15/2022 7:18 PM EDT Assessment Noted Time PHQ-9 Depression Total Score: 2 11/07/19 19 2:06 PM EDT documented as of this encounter Care Teams Steak Tenderizer Machine Relationship Specialty Start Date End Date Caitlyn Bowie MD 3400 [facility] Max 1 [place] [address] PCP - General Internal Medicine 05/06/21 Henry Kelly MD Pulmonary Department 175 [facility], [address] [place] [address] Physician Pulmonary Disease 09/06/17 06/22/20 documented as of this encounter
--- OUTSIDE RECORDS SUMMARY | 2025-04-10 14:07 | XMS_ITS | Encounter Summary ---
Author Organization [facility] Address [address] [place] [address] Care Team Providers Care Access Liaison Name Role Phone Caitlyn Bowie MD Primary Care Provider +1- [phone] Encounter Details Date Type Department Care Team (Late st Contact Info) Description 10/15/2018 Scanned Document [facility] Health Information Management [address] [place] [address] External, Provider Social History Tobacco Use Types [...] [facility] 240 [facility] Building [address] [place], [place] [phone] Ronald Mills MD 240 [facility] [address]1 [place] [address] documented as of this encounter Visit Diagnoses Not on filedocumented in this encounter Additional Health Concerns Infection Onset Date Last Indicated Resolved Time COVID-19 03/05/2022 03/05/2022 03/15/2022 7:18 PM EDT documented as of this encounter Care Teams Access Liaison Relationship Specialty Start Date End Date Caitlyn Bowie MD 3400 [facility] 1 [place] [address] PCP - General Internal Medicine 05/06/21 Henry Kelly MD Pulmonary Department 175 [facility], [address] [place] [address] Physician Pulmonary Disease 09/06/17 06/22/20 documented as of this encounter
--- OUTSIDE RECORDS SUMMARY | 2025-04-10 14:07 | XMS_ITS | Encounter Summary ---
Author Organization [facility] Address 20 [place] [address] Care Team Providers Care Director Global Development Name Role Phone Caitlyn Bowie MD Primary Care Provider +1- [phone] Encounter Details Date Type Department Care Team (Late st Contact Info) Description 05/19/2020 Scanned Document Cancer Center at [address] [address] External, Provider Social History Tobacco Use Types [...] [facility] 240 [facility] Building [address] [place], [place] [address] Ronald Mills MD [address] [place] [address] [address] [place] [address] documented as of this encounter [...] as of this encounter Care Teams Director Global Development Relationship Specialty Start Date End Date Caitlyn Bowie MD 3400 [facility] 1 [place] [address] PCP - General Internal Medicine 05/06/21 Henry Kelly MD Pulmonary Department 175 [facility], [address] [place] [address] Physician Pulmonary Disease 09/06/17 06/22/20 documented as of this encounter
--- OUTSIDE RECORDS SUMMARY | 2025-04-10 14:07 | XMS_ITS | Encounter Summary ---
Author Organization [facility] Address [address] [place] [address] Phone Care Team Providers Care Control Panel Assembler Name Role Phone Caitlyn Bowie MD Primary Care Provider +1- [phone] Encounter Details Date Type Department Care Team (Late Contact Info) Description 03/24/2025 Documentation Only [facility] [address] [place] [address] Marina Abdi [address] [place] [address] Social History Tobacco Use Types [...] Visit [facility] [address] [place] [address] Rubén Ashraf MD [address] [place] [address] [place] [address] documented as of this encounter Visit Diagnoses Not on filedocumented in this encounter Care Teams Control Panel Assembler Relationship Specialty Start Date End Date Caitlyn Bowie MD 3400 [place], [place] PCP - General Internal Medicine 09/24/24 documented as of this encounter
--- OUTSIDE RECORDS SUMMARY | 2025-04-10 14:07 | XMS_ITS | Encounter Summary ---
Author Organization [facility] Address [address] [place] [address] Care Team Providers Care Stock Preparation Operator Name Role Phone Caitlyn Bowie MD Primary Care Provider +1- [phone] Encounter Details Date Type Department Care Team (Late st Contact Info) Description 02/02/2017 Scanned Document [facility] Health Information Management [address] [place] [address] External, Provider Social History Tobacco Use Types [...] [facility] 240 [facility] Building [address] [place], [place] [phone] Ronald Mills MD 240 [facility] A1 [place] [address] documented as of this encounter Visit Diagnoses Not on filedocumented in this encounter Additional Health Concerns Infection Onset Date Last Indicated Resolved Time COVID-19 03/05/2022 03/05/2022 03/15/2022 7:18 PM EDT documented as of this encounter Care Teams Stock Preparation Operator Relationship Specialty Start Date End Date Caitlyn Bowie MD 3400 [facility] 1 [place] [address] PCP - General Internal Medicine 05/06/21 Henry Kelly MD Pulmonary Department 175 [facility], [address] [place] [address] Physician Pulmonary Disease 09/06/17 06/22/20 documented as of this encounter
--- OUTSIDE RECORDS SUMMARY | 2025-04-10 14:07 | XMS_ITS | Encounter Summary ---
Author Organization [facility] and [facility] Address [address] [place] [address] Care Team Providers Care Entertainment Centre Manager Name Role Phone Caitlyn Bowie MD Primary Care Provider +1- [phone] Encounter Details Date Type Department Care Team (Late st Contact Info) Description 12/16/2016 Scanned Document [facility] Health Information Management [address] [place] [address] External, Provider Social History Tobacco Use Types [...] [facility] 240 [facility] Building [address] [place], [place] [address] Ronald Mills MD 240 [facility] Max [address]1 [place] [address] documented as [...] documented as of this encounter Care Teams Entertainment Centre Manager Relationship Specialty Start Date End Date Caitlyn Bowie MD [address] [facility] 1 [place] [address] PCP - General Internal Medicine 05/06/21 Henry Kelly MD Pulmonary Department 175 [facility], [address] [place] [address] Physician Pulmonary Disease 09/06/17 06/22/20 documented as of this encounter
--- OUTSIDE RECORDS SUMMARY | 2025-04-10 14:07 | XMS_ITS | Encounter Summary ---
Author Organization [facility] Address [address] [place] [address] Care Team Providers Care Warehouse Logistics Manager Name Role Phone Caitlyn Bowie MD Primary Care Provider +1- [phone] Encounter Details Date Type Department Care Team (Late st Contact Info) Description 12/16/2016 Scanned Document [facility] Health Information Management [address] [place] [address] External, Provider Social History Tobacco Use Types [...] [facility] Building [address] [place], [place] [phone] Ronald Mills MD 240 [facility] Max [address]1 [place] [address] documented as of this encounter [...] as of this encounter Care Teams Warehouse Logistics Manager Relationship Specialty Start Date End Date Caitlyn Bowie MD 3400 [facility] 1 [place] [address] PCP - General Internal Medicine 05/06/21 Henry Kelly MD Pulmonary Department 175 [facility], [address] [place] [address] Physician Pulmonary Disease 09/06/17 06/22/20 documented as of this encounter
--- OUTSIDE RECORDS SUMMARY | 2025-04-10 14:07 | XMS_ITS | Encounter Summary ---
Author Organization [facility] and [facility] Address [address] [place] [address] Care Team Providers Care Roller Skate Assembler Name Role Phone Caitlyn Bowie MD Primary Care Provider +1- [phone] Encounter Details Date Type Department Care Team (Late st Contact Info) Description 10/08/2021 Scanned Document INTERFACE DEFAULT [address] [place] [address] System, Provider Not In Social History Tobacco [...] at [facility] 240 [facility] Building [address] [place], [place] [address] Ronald Mills MD [address] [place] [address] [address] [place] [address] documented as of this encounter [...] as of this encounter Care Teams Roller Skate Assembler Relationship Specialty Start Date End Date Caitlyn Bowie MD [address] [address] PCP - General Internal Medicine 05/06/21 documented as of this encounter
--- OUTSIDE RECORDS SUMMARY | 2025-04-10 14:07 | XMS_ITS | Encounter Summary ---
Author Organization [facility] and [facility] Address [address] [place] [address] Care Team Providers Care Metal Base Blocker Name Role Phone Caitlyn Bowie MD Primary Care Provider +1- [phone] Encounter Details Date Type Department Care Team (Late st Contact Info) Description 12/16/2016 Scanned Document [facility] Health Information Management [address] [place] [address] External, Provider Social History Tobacco Use Types [...] at [facility] 240 [facility] Building [address] [place], [place] [address] Ronald Mills MD 240 [facility] A1 [place] [address] documented as of this encounter Visit Diagnoses Not on filedocumented in this encounter Additional Health Concerns Infection Onset Date Last Indicated Resolved Time COVID-19 03/05/2022 03/05/2022 03/15/2022 7:18 PM EDT documented as of this encounter Care Teams Metal Base Blocker Relationship Specialty Start Date End Date Caitlyn Bowie MD 3400 [facility] 1 [place] [address] PCP - General Internal Medicine 05/06/21 Henry Kelly MD Pulmonary Department 175 [facility], [address] [place] [address] Physician Pulmonary Disease 09/06/17 06/22/20 documented as of this encounter
--- OUTSIDE RECORDS SUMMARY | 2025-04-10 14:07 | XMS_ITS | Encounter Summary ---
Author Organization [facility] and [facility] Address [address] [place] [address] Care Team Providers Care Pharmaceutical Engineer Name Role Phone Caitlyn Bowie MD Primary Care Provider +1- [phone] Encounter Details Date Type Department Care Team (Late st Contact Info) Description 06/26/2018 Scanned Document [facility] Health Information Management [address] [place] [address] External, Provider Social History Tobacco Use Types [...] [facility] Building [address] [place], [place] [phone] Ronald Mills MD 240 [facility] A1 [place] [address] documented as of this encounter Visit Diagnoses Not on filedocumented in this encounter Additional Health Concerns Infection Onset Date Last Indicated Resolved Time COVID-19 03/05/2022 03/05/2022 03/15/2022 7:18 PM EDT documented as of this encounter Care Teams Pharmaceutical Engineer Relationship Specialty Start Date End Date Caitlyn Bowie MD 3400 [facility] 1 [place] [address] PCP - General Internal Medicine 05/06/21 Henry Kelly MD Pulmonary Department 175 [facility], [address] [place] [address] Physician Pulmonary Disease 09/06/17 06/22/20 documented as of this encounter
--- OUTSIDE RECORDS SUMMARY | 2025-04-10 14:07 | XMS_ITS | Patient Health Record ---
Author Organization [facility] Address [address] [place] [address] Care Team Providers Care Research Hydrologist Name Role Phone Shruti Bowieberly Primary Care Provider Cristian Fountain Unavailable [phone] Allergies Allergen (clinical drug ingredient) Drug/Non Drug [...] Status W/U Status Risk Notes Problem Diverticulitis (394097686) Diverticulitis (K57.92) Active confirmed Problem Irritable bowel syndrome characterized by constipation (003932537) Irritable bowel syndrome with constipation (K58.9) Active confirmed Problem Gastroesophageal reflux disease (455242434) GERD (gastroesophageal reflux disease) (K21.9) Active confirmed Plan Of Treatment No Information Insurance Providers Payer Name Payer Address Payer Phone Subscriber Number Group Number Insured Name Patient Relationship to Insured Coverage Start Date Coverage End Date MEDICARE OF [place] [address] [place] [address] [phone] [id number] CINDA WATSON Self - patient is the insured [employer] ATTN CLAIMS [address] [place] [address] [id number] CINDA WATSON Self - patient is the [...] a nd 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 Hogan at [facility] GERD-has had EGD's with Dr. Gomes Pneumomias Hypothyroidism Surgical History Surgery Date(Month/Year) Tonsils and adenoids [facility] Lung cancer-Left lower lobectomy at [facility], XRT, Chemo 2008
--- OUTSIDE RECORDS SUMMARY | 2025-04-10 14:07 | XMS_ITS | Encounter Summary ---
Author Organization [facility] Address [address] [place] [address] Care Team Providers Care Dental Service Technician Name Role Phone Caitlyn Bowie MD Primary Care Provider +1- [phone] Encounter Details Date Type Department Care Team (Late Contact Info) Description 09/15/2020 Scanned Document [facility] Health Information Management [address] [place] [address] External, Provider Social History Tobacco Use Types [...] [facility] Building [address] [place], [place] [address] Ronald Mills MD [address] [place] [address] [address] [place] [address] documented as of this encounter [...] as of this encounter Care Teams Dental Service Technician Relationship Specialty Start Date End Date Caitlyn Bowie MD [address] [address] PCP - General Internal Medicine 05/06/21 documented as of this encounter
--- OUTSIDE RECORDS SUMMARY | 2025-04-10 14:07 | XMS_ITS | Encounter Summary ---
Author Organization [facility] and [facility] Address [address] [place] [address] Care Team Providers Care Granite Sandblaster Apprentice Name Role Phone Caitlyn Bowie MD Primary Care Provider +1- [phone] Encounter Details Date Type Department Care Team (Late st Contact Info) Description 12/16/2016 Scanned Document [facility] Health Information Management [address] [place] [phone] External, Provider Social History Tobacco Use Types [...] [facility] 240 [facility] Building [address] [place], [place] [phone] Ronald Mills MD 240 [facility] Max [address] [place] [address] documented as [...] as of this encounter Care Teams Granite Sandblaster Apprentice Relationship Specialty Start Date End Date Caitlyn Bowie MD 3400 [facility] 1 [place] [address] PCP - General Internal Medicine 05/06/21 Henry Kelly MD Pulmonary Department 175 [facility], [address] [place] [address] Physician Pulmonary Disease 09/06/17 06/22/20 documented as of this encounter
--- OUTSIDE RECORDS SUMMARY | 2025-04-10 14:07 | XMS_ITS | Encounter Summary ---
Author Organization [facility] and [facility] Address [address] [place] [address] Care Team Providers Care Carriage Dogger Name Role Phone Caitlyn Bowie MD Primary Care Provider +1- [phone] Encounter Details Date Type Department Care Team (Late st Contact Info) Description 09/07/2020 Scanned Document Cardiovascular Medicine at [address] [place], [place] [address] Norma Renee MD [address] [place] [phone] Social History Tobacco Use Types Packs/Day Years [...] PM EDT Telemedicine Cancer [facility] at [address] [place], [place] [address] Ronald Mills MD [address] [place] [address] [address] [place] [address] documented as of this encounter Visit Diagnoses Not on filedocumented in this encounter Additional Health Concerns Infection Onset Date Last Indicated Resolved Time COVID-19 03/05/2022 03/05/2022 03/15/2022 7:18 PM EDT Assessment Noted Time PHQ-9 Depression Total Score: 2 11/07/19 19 2:06 PM EDT documented as of this encounter Care Teams Carriage Dogger Relationship Specialty Start Date End Date Caitlyn Bowie MD [address] [address] PCP - General Internal Medicine 05/06/21 documented as of this encounter
--- OUTSIDE RECORDS SUMMARY | 2025-04-10 14:07 | XMS_ITS | Encounter Summary ---
Author Organization [facility] and [facility] Address [address] [place] [address] Care Team Providers Care Job Coach/Job Developer Name Role Phone Caitlyn Bowie MD Primary Care Provider +1- [phone] Encounter Details Date Type Department Care Team (Late st Contact Info) Description 09/16/2020 Scanned Document COUNTS INCLUDE 234 BEDS AT THE [facility] Health Information Management [address] [place] [address] External, Provider Social History Tobacco Use Types [...] Healthcare Services – [facility] 240 [facility] Building [address] [place], [place] [phone] Ronald Mills MD [address] [place] [address] [address] [place] [phone] documented as of this encounter Procedures Procedure [...] as of this encounter Care Teams Job Coach/Job Developer Relationship Specialty Start Date End Date Caitlyn Bowie MD [address] [address] PCP - General Internal Medicine 05/06/21 documented as of this encounter
--- OUTSIDE RECORDS SUMMARY | 2025-04-10 14:07 | XMS_ITS | Encounter Summary ---
Author Organization [facility] and [facility] Address [address] [place] [address] Care Team Providers Care Director Of Accounts Receivable Name Role Phone Caitlyn Bowie MD Primary Care Provider +1- [phone] Encounter Details Date Type Department Care Team (Late Contact Info) Description 09/16/2020 Scanned Document [facility] Health Information Management [address] [place] [address] External, Provider Social History Tobacco Use Types [...] [facility] 240 [facility] Building [address] [place], [place] [phone] Ronald Mills MD [address] [place] [address] [address] [place] [address] documented as of this encounter [...] of this encounter Care Teams Director Of Accounts Receivable Relationship Specialty Start Date End Date Caitlyn Bowie MD [address] [address] PCP - General Internal Medicine 05/06/21 documented as of this encounter
--- OUTSIDE RECORDS SUMMARY | 2025-04-10 14:07 | XMS_ITS | Encounter Summary ---
Author Organization [facility] and [facility] Address [address] [place] [address] Care Team Providers Care Screen Printing Machine Loader Unloader Name Role Phone Caitlyn Bowie MD Primary Care Provider +1- [phone] Encounter Details Date Type Department Care Team (Late st Contact Info) Description 07/30/2018 Scanned Document [facility] Health Information Management [address] [place] [phone] External, Provider Social History Tobacco Use Types [...] [facility] at [facility] 240 [facility] Building [address] [place], [place] [phone] Ronald Mills MD [address] [place] [address] [address] [place] [address] documented as of this encounter [...] of this encounter Care Teams Screen Printing Machine Loader Unloader Relationship Specialty Start Date End Date Caitlyn Bowie MD [facility] 1 [place] [address] PCP - General Internal Medicine 05/06/21 Henry Kelly MD Pulmonary Department 175 [facility], [address] [place] [address] Physician Pulmonary Disease 09/06/17 06/22/20 documented as of this encounter
--- OUTSIDE RECORDS SUMMARY | 2025-04-10 14:07 | XMS_ITS | Encounter Summary ---
Author Organization [facility] and [facility] Address [address] [place] [address] Care Team Providers Care Dry Clipper Tender Name Role Phone Caitlyn Bowie MD Primary Care Provider +1- [phone] Encounter Details Date Type Department Care Team (Late st Contact Info) Description 12/19/2016 Scanned Document [facility] Health Information Management [address] [place] [address] External, Provider Social History Tobacco Use Types [...] Cancer Center at [facility] 240 [facility] Building [address] [place], [place] [phone] Ronald Mills MD 240 [facility] Max [address] [place] [address] documented as of this encounter [...] as of this encounter Care Teams Dry Clipper Tender Relationship Specialty Start Date End Date Caitlyn Bowie MD [facility] 1 [place] [address] PCP - General Internal Medicine 05/06/21 Henry Kelly MD Pulmonary Department 175 [facility], [address] [place] [address] Physician Pulmonary Disease 09/06/17 06/22/20 documented as of this encounter
--- OUTSIDE RECORDS SUMMARY | 2025-04-10 14:07 | XMS_ITS | Encounter Summary ---
Author Organization [facility] and [facility] Address [address] [place] [address] Care Team Providers Care Java Software Developer Name Role Phone Caitlyn Bowie MD Primary Care Provider +1- [phone] Encounter Details Date Type Department Care Team (Late st Contact Info) Description 02/20/2017 Scanned Document [facility] Health Information Management [address] [place] [address] External, Provider Social History Tobacco Use Types [...] Center at [facility] 240 [facility] Building [address] [place], [place] [phone] Ronald Mills MD 240 [facility] Max [address] [place] [address] documented as of this encounter [...] as of this encounter Care Teams Java Software Developer Relationship Specialty Start Date End Date Caitlyn Bowie MD 3400 [facility] 1 [place] [address] PCP - General Internal Medicine 05/06/21 Henry Kelly MD Pulmonary Department 175 [facility], [address] [place] [address] Physician Pulmonary Disease 09/06/17 06/22/20 documented as of this encounter
--- OUTSIDE RECORDS SUMMARY | 2025-04-10 14:07 | XMS_ITS | Encounter Summary ---
Author Organization [facility] and [facility] Address [address] [place] [address] Care Team Providers Care Clinical Massage Therapist Name Role Phone Caitlyn Bowie MD Primary Care Provider +1- [phone] Encounter Details Date Type Department Care Team (Late st Contact Info) Description 06/08/2021 Scanned Document INTERFACE DEFAULT [address] [place] [address] System, Provider Not In Social History Tobacco [...] [facility] at [facility] 240 [facility] Building [address] [place], [place] [phone] Ronald Mills MD [address] [place] [address] [address] [place] [address] documented as of this encounter [...] as of this encounter Care Teams Clinical Massage Therapist Relationship Specialty Start Date End Date Caitlyn Bowie MD [address] [place] [address] PCP - General Internal Medicine 05/06/21 documented as of this encounter
--- OUTSIDE RECORDS SUMMARY | 2025-04-10 14:07 | XMS_ITS | Encounter Summary ---
Author Organization [facility] Address [address] [place] [address] Phone Care Team Providers Care Quality Control Coordinator Name Role Phone Caitlyn Bowie MD Primary Care Provider +1- [phone] Encounter Details Date Type Department Care Team (Late Contact Info) Description 03/17/2025 Documentation Only [facility] [address] [place] [address] Marina Abdi [address] [place] [address] Social History Tobacco Use Types [...] Visit [facility] [address] [place] [address] Rubén Ashraf MD [address] [place] [address] [place] [address] documented as of this encounter Visit Diagnoses Not on filedocumented in this encounter Care Teams Quality Control Coordinator Relationship Specialty Start Date End Date Caitlyn Bowie MD [address] [place], [place] PCP - General Internal Medicine 09/24/24 documented as of this encounter
--- OUTSIDE RECORDS SUMMARY | 2025-04-10 14:07 | XMS_ITS | Encounter Summary ---
Author Organization [facility] and [facility] Address [address] [place] [address] Care Team Providers Care Steel Buffer Name Role Phone Caitlyn Bowie MD Primary Care Provider +1- [phone] Encounter Details Date Type Department Care Team (Late st Contact Info) Description 06/07/2021 Scanned Document Cancer Center at [address] [address] External, Provider Social History Tobacco Use Types [...] Center at [facility] 240 [facility] Building [address] [place], [place] [phone] Ronald Mills MD [address] [place] [address] [address] [place] [address] documented as of this encounter [...] End Date Caitlyn Bowie MD [address] [address] PCP - General Internal Medicine 05/06/21 documented as of this encounter
--- OUTSIDE RECORDS SUMMARY | 2025-04-10 14:07 | XMS_ITS | Encounter Summary ---
Author Organization [facility] Address [address] [place] [address] Care Team Providers Care Custom Feed Mill Operator Name Role Phone Caitlyn Bowie MD Primary Care Provider +1- [phone] Encounter Details Date Type Department Care Team (Late Contact Info) Description 09/09/2020 Scanned Document [facility] Health Information Management [address] [place] [address] External, Provider Social History Tobacco Use Types [...] [facility] Building [address] [place], [place] [phone] Ronald Mills MD [address] [place] [address] [address]1 [place] [address] documented as of this encounter [...] as of this encounter Care Teams Custom Feed Mill Operator Relationship Specialty Start Date End Date Caitlyn Bowie MD [address] [address] PCP - General Internal Medicine 05/06/21 documented as of this encounter
--- OUTSIDE RECORDS SUMMARY | 2025-04-10 14:07 | XMS_ITS | Encounter Summary ---
Author Organization [facility] Address [address] [place] [address] Care Team Providers Care Green Marketing Analyst Name Role Phone Caitlyn Bowie MD Primary Care Provider +1- [phone] Encounter Details Date Type Department Care Team (Late st Contact Info) Description 12/16/2016 Scanned Document [facility] Health Information Management [address] [place] [address] External, Provider Social History Tobacco Use Types [...] Center at [facility] 240 [facility] Building [address] [place], [place] [phone] Ronald Mills MD 240 [facility] A1 [place] [address] documented as of this encounter [...] documented as of this encounter Care Teams Green Marketing Analyst Relationship Specialty Start Date End Date Caitlyn Bowie MD [facility] 1 [place] [address] PCP - General Internal Medicine 05/06/21 Henry Kelly MD Pulmonary Department 175 [facility], [address] [place] [address] Physician Pulmonary Disease 09/06/17 06/22/20 documented as of this encounter
--- OUTSIDE RECORDS SUMMARY | 2025-04-10 14:07 | XMS_ITS | Encounter Summary ---
Author Organization [facility] and [facility] Address [address] [place] [address] Care Team Providers Care Canal Driver Name Role Phone Caitlyn Bowie MD Primary Care Provider +1- [phone] Encounter Details Date Type Department Care Team (Late st Contact Info) Description 09/17/2020 Scanned Document [facility] Health Information Management [address] [place] [address] External, Provider Social History Tobacco Use Types [...] [facility] Building [address] [place], [place] [phone] Ronald Mills MD [address] [place] [address] [address] [place] [address] documented as of this encounter [...] as of this encounter Care Teams Canal Driver Relationship Specialty Start Date End Date Caitlyn Bowie MD [address] [address] PCP - General Internal Medicine 05/06/21 documented as of this encounter
--- OUTSIDE RECORDS SUMMARY | 2025-04-10 14:08 | XMS_ITS | Encounter Summary ---
Author Organization [facility] and [facility] Address [address] [place] [address] Care Team Providers Care Carbonating Stone Cleaner Name Role Phone Caitlyn Bowie MD Primary Care Provider +1- [phone] Encounter Details Date Type Department Care Team (Late st Contact Info) Description 05/27/2021 Telephone [facility] at [address] [address] Ronald Mills MD [address] [place] [address] Social History Tobacco Use Types Packs/Day [...] Cancer Center at [facility] 240 [facility] [address] [place] [address] Ronald Mills MD 240 [facility] Max [address] [place] [address] documented as of this encounter Visit Diagnoses Not on filedocumented in this encounter Additional Health Concerns Infection Onset Date Last Indicated Resolved Time COVID-19 03/05/2022 03/05/2022 03/15/2022 7:18 PM EDT Assessment Noted Time PHQ-9 Depression Total Score: 2 11/07/19 19 2:06 PM EDT documented as of this encounter Care Teams Carbonating Stone Cleaner Relationship Specialty Start Date End Date Caitlyn Bowie MD [address] [address] PCP - General Internal Medicine 05/06/21 documented as of this encounter
--- OUTSIDE RECORDS SUMMARY | 2025-04-10 14:08 | XMS_ITS | Encounter Summary ---
Author Organization [facility] Address [address] [place] [address] Phone Care Team Providers Care Substation Manager Name Role Phone Caitlyn Bowie MD Primary Care Provider +1- [phone] Encounter Details Date Type Department Care Team (Late Contact Info) Description 12/10/2024 Documentation Only [facility] [address] [place] [address] Marina Abdi [address] [place] [address] Social History Tobacco Use Types [...] [facility] [address] [place] [address] Rubén Ashraf MD [address] [place] [address] [place] [address] documented as of this encounter Visit Diagnoses Not on filedocumented in this encounter Care Teams Substation Manager Relationship Specialty Start Date End Date Caitlyn Bowie MD [address]00 [place], [place] PCP - General Internal Medicine 09/24/24 documented as of this encounter
--- OUTSIDE RECORDS SUMMARY | 2025-04-10 14:08 | XMS_ITS | Encounter Summary ---
Author Organization [facility] Address [address] [place] [address] Phone Care Team Providers Care Slope Tender Name Role Phone Caitlyn Bowie MD Primary Care Provider +1- [phone] Encounter Details Date Type Department Care Team (Late Contact Info) Description 12/10/2024 Documentation Only [facility] [address] [place] [address] Marina Abdi [address]150 [place] [address] Social History Tobacco Use Types [...] Visit [facility] [address] [place] [address] Rubén Ashraf MD [address] [place] [address] [place] [address] documented as of this encounter Visit Diagnoses Not on filedocumented in this encounter Care Teams Slope Tender Relationship Specialty Start Date End Date Caitlyn Bowie MD [address]00 [place], [place] PCP - General Internal Medicine 09/24/24 documented as of this encounter
--- OUTSIDE RECORDS SUMMARY | 2025-04-10 14:08 | XMS_ITS | Encounter Summary ---
Author Organization [facility] Address [address] [place] [address] Care Team Providers Care Metal Technician Name Role Phone Caitlyn Bowie MD Primary Care Provider +1- [phone] Encounter Details Date Type Department Care Team (Late st Contact Info) Description 09/02/2021 Scanned Document INTERFACE DEFAULT [address] [place] [address] System, Provider Not In Social History [...] [facility] Building [address] [place], [place] [address] Ronald Mills MD [address] [place] [address] [address] [place] [address] documented as of this encounter [...] as of this encounter Care Teams Metal Technician Relationship Specialty Start Date End Date Caitlyn Bowie MD [address] [address] PCP - General Internal Medicine 05/06/21 documented as of this encounter
--- OUTSIDE RECORDS SUMMARY | 2025-04-10 14:08 | XMS_ITS | Encounter Summary ---
Author Organization [facility] and [facility] Address [address] [place] [address] Care Team Providers Care Advisor Advocate Angel Co Founder Name Role Phone Caitlyn Bowie MD Primary Care Provider +1- [phone] Encounter Details Date Type Department Care Team (Latest Contact Info) Description 04/15/2013 Transcribed Orders [facility] [address] [place] [address] Tian Atwood MD 280 [facility] 102 [place] [address] Unspecified hypothyroidism (Primary Dx) Social [...] – [facility] 240 [facility] Building [address] [place] [address] Ronald Mills MD 240 [facility] A1 [place] [address] documented as of this encounter Results * Copper, serum total (YH) (04/15/2013 4:31 PM EDT) Copper, Serum Total SEE BELOW [facility] Comment: Test Result Flag Unit RefValue Copper, S 1.35 mcg/mL 0.75-1.45 04/15/2013 4:31 PM EDT us Tian Atwood MD LAB BLOOD ORDERABLES Final R esult [facility] [address] [place] [address] documented in this encounter Visit Diagnoses Diagnosis Unspecified hypothyroidism- Primary documented in this encounter Additional Health Concerns Infection Onset Date Last Indicated Resolved Time COVID-19 03/05/2022 03/05/2022 03/15/2022 7:18 PM EDT documented as of this encounter Care Teams Advisor Advocate Angel Co Founder Relationship Specialty Start Date End Date Caitlyn Bowie MD 3400 [facility] 1 [place] [address] PCP - General Internal Medicine 05/06/21 Henry Kelly MD Pulmonary Department 175 [facility], [address] [place] [address] Physician Pulmonary Disease 09/06/17 06/22/20 documented as of this encounter
--- OUTSIDE RECORDS SUMMARY | 2025-04-10 14:08 | XMS_ITS | Encounter Summary ---
Author Organization [facility] and [facility] Address [address] [place] [address] Care Team Providers Care Sports Centre Manager Name Role Phone Caitlyn Bowie MD Primary Care Provider +1- [phone] Encounter Details Date Type Department Care Team (Late st Contact Info) Description 11/26/2019 Scanned Document Cancer Center at [address] [address] External, Provider Social History Tobacco Use Types [...] Center at [facility] 240 [facility] Building [address] [place], [place] [phone] Ronald Mills MD [address] [place] [address] [address] [place] [address] documented as of this encounter [...] as of this encounter Care Teams Sports Centre Manager Relationship Specialty Start Date End Date Caitlyn Bowie MD 3400 [facility] 1 [place] [address] PCP - General Internal Medicine 05/06/21 Henry Kelly MD Pulmonary Department 175 [facility], [address] [place] [address] Physician Pulmonary Disease 09/06/17 06/22/20 documented as of this encounter
--- OUTSIDE RECORDS SUMMARY | 2025-04-10 14:08 | XMS_ITS | Encounter Summary ---
Author Organization [facility] and [facility] Address [address] [place] [address] Care Team Providers Care Sales Department Clerk Name Role Phone Caitlyn Bowie MD Primary Care Provider +1- [phone] Encounter Details Date Type Department Care Team (Late st Contact Info) Description 06/07/2021 Scanned Document Onco-Oncology Program at [address] [place] [address] Norma Renee MD [address] [place] [address] 2 [place] [address] Social History Tobacco [...] PM EDT Telemedicine Cancer Center at [address] [place], [place] [phone] Ronald Mills MD 240 [facility] A1 [place] [address] documented as of this encounter Visit Diagnoses [...] End Date Caitlyn Bowie MD [address] [address] PCP - General Internal Medicine 05/06/21 documented as of this encounter
--- OUTSIDE RECORDS SUMMARY | 2025-04-10 14:08 | XMS_ITS | Encounter Summary ---
Author Organization [facility] Address [address] [place] [address] Care Team Providers Care Die Maker Name Role Phone Caitlyn Bowie MD Primary Care Provider +1- [phone] Encounter Details Date Type Department Care Team (Late st Contact Info) Description 04/26/2021 Scanned Document INTERFACE DEFAULT [address] [place] [address] System, Provider Not In Social History Tobacco [...] [facility] 240 [facility] Building [address] [place], [place] [phone] Ronald Mills MD [address] [place] [address] [address] [place] [address] documented as of this encounter [...] End Date Caitlyn Bowie MD [address] [address] PCP - General Internal Medicine 05/06/21 documented as of this encounter
--- OUTSIDE RECORDS SUMMARY | 2025-04-10 14:08 | XMS_ITS | Encounter Summary ---
Author Organization [facility] and [facility] Address [address] [place] [address] Care Team Providers Care Paid Internship Name Role Phone Caitlyn Bowie MD Primary Care Provider +1- [phone] Encounter Details Date Type Department Care Team (Late st Contact Info) Description 04/18/2013 Documentation Hematology Program at [address] [address] Isis Ragland RN Social History Tobacco Use [...] Center at [facility] [address] [facility] Building [address] [place], [place] [id number] Ronald Mills MD 240 [facility] A1 [place] [address] documented as of this encounter Visit Diagnoses Not on filedocumented in this encounter Additional Health Concerns Infection Onset Date Last Indicated Resolved Time COVID-19 03/05/2022 03/05/2022 03/15/2022 7:18 PM EDT documented as of this encounter Care Teams Paid Internship Relationship Specialty Start Date End Date Caitlyn Bowie MD 3400 [facility] 1 [place] [address] PCP - General Internal Medicine 05/06/21 Henry Kelly MD Pulmonary Department 175 [facility], [address] [place] [address] Physician Pulmonary Disease 09/06/17 06/22/20 documented as of this encounter
--- OUTSIDE RECORDS SUMMARY | 2025-04-10 14:08 | XMS_ITS | Encounter Summary ---
Author Organization [facility] and [facility] Address [address] [place] [address] Care Team Providers Care Integrated Circuit Fabricator Name Role Phone Caitlyn Bowie MD Primary Care Provider +1- [phone] Encounter Details Date Type Department Care Team (Late st Contact Info) Description 04/25/2021 Scanned Document INTERFACE DEFAULT [address] [place] [address] System, Provider Not In Social History Tobacco [...] at [facility] 240 [facility] [address] [place] [address] Ronald Mills MD [address] [place] [address] [address] [place] [address] documented as of this encounter [...] as of this encounter Care Teams Integrated Circuit Fabricator Relationship Specialty Start Date End Date Caitlyn Bowie MD [address] [address] PCP - General Internal Medicine 05/06/21 documented as of this encounter
--- OUTSIDE RECORDS SUMMARY | 2025-04-10 14:08 | XMS_ITS | Encounter Summary ---
Author Organization [facility] and [facility] Address [address] [place] [address] Care Team Providers Care Drying Rack Changer Name Role Phone Caitlyn Bowie MD Primary Care Provider +1- [phone] Encounter Details Date Type Department Care Team (Late st Contact Info) Description 09/07/2021 Scanned Document INTERFACE DEFAULT [address] [place] [address] System, Provider Not In Social History Tobacco [...] Center at [facility] 240 [facility] Building [address] [place], [place] [phone] Ronald Mills MD [address] [place] [address] [address] [place] [address] documented as of this encounter [...] as of this encounter Care Teams Drying Rack Changer Relationship Specialty Start Date End Date Caitlyn Bowie MD [address] [address] PCP - General Internal Medicine 05/06/21 documented as of this encounter
--- OUTSIDE RECORDS SUMMARY | 2025-04-10 14:08 | XMS_ITS | Encounter Summary ---
Author Organization [facility] Address [address] [place] [address] Phone Care Team Providers Care Restorer Lace And Textiles Name Role Phone Caitlyn Bowie MD Primary Care Provider +1- [phone] Encounter Details Date Type Department Care Team (Late Contact Info) Description 12/10/2024 Documentation Only [facility] [address] [place] [address] Marina Abdi [address] [place] [address] Social History Tobacco Use Types [...] [facility] [address] [place] [address] Rubén Ashraf MD [address] [place] [address] [place] [address] documented as of this encounter Visit Diagnoses Not on filedocumented in this encounter Care Teams Restorer Lace And Textiles Relationship Specialty Start Date End Date Caitlyn Bowie MD 3400 [place], [place] PCP - General Internal Medicine 09/24/24 documented as of this encounter
--- OUTSIDE RECORDS SUMMARY | 2025-04-10 14:08 | XMS_ITS | Encounter Summary ---
Author Organization [facility] and [facility] Address [address] [place] [address] Care Team Providers Care Janitor [place] Name Role Phone Caitlyn Bowie MD Primary Care Provider +1- [phone] Encounter Details Date Type Department Care Team (Late st Contact Info) Description 01/28/2013 Scanned Document Thoracic Oncology Program at [address] [address] Solo Henry MD [address] [place] [address] Social History Tobacco Use Types Packs/Day [...] [facility] 240 [facility] Building [address] [place], [place] [address] Ronald Mills MD 240 [facility] [address] [place] [address] documented as of this encounter Visit Diagnoses Not on filedocumented in this encounter Additional Health Concerns Infection Onset Date Last Indicated Resolved Time COVID-19 03/05/2022 03/05/2022 03/15/2022 7:18 PM EDT documented as of this encounter Care Teams Janitor Helper Relationship Specialty Start Date End Date Caitlyn Bowie MD 3400 [facility] Max 1 [place] [address] PCP - General Internal Medicine 05/06/21 Henry Kelly MD Pulmonary Department 175 [facility], [address] [place] [address] Physician Pulmonary Disease 09/06/17 06/22/20 documented as of this encounter
--- OUTSIDE RECORDS SUMMARY | 2025-04-10 14:08 | XMS_ITS | Encounter Summary ---
Author Organization [facility] and [facility] Address [address] [place] [address] Care Team Providers Care Director Of Land Name Role Phone Caitlyn Bowie MD Primary Care Provider +1- [phone] Encounter Details Date Type Department Care Team (Late st Contact Info) Description 07/22/2021 Scanned Document INTERFACE DEFAULT [address] [place] [address] System, Provider Not In Social History Tobacco [...] at [facility] 240 [facility] Building [address] [place], [place] [address] Ronald Mills MD [address] [place] [address] [address]1 [place] [address] documented as of this encounter [...] of this encounter Care Teams Director Of Land Relationship Specialty Start Date End Date Caitlyn Bowie MD [address] [address] PCP - General Internal Medicine 05/06/21 documented as of this encounter
--- OUTSIDE RECORDS SUMMARY | 2025-04-10 14:08 | XMS_ITS | Encounter Summary ---
Author Organization [facility] and [facility] Address [address] [place] [address] Care Team Providers Care Contemporary Or Modern Dancer Name Role Phone Caitlyn Bowie MD Primary Care Provider +1- [phone] Reason for Visit * Reason Comments FYI Encounter Details Date Type Department Care Team (Late st Contact Info) Description 05/24/2021 Telephone [facility] Thoracic Oncology Program at [facility] at [address] [place] [address] [address] [place], [place] [phone] Solo Henry MD [address] [place] [phone] FYI Social History Tobacco Use Types [...] at [facility] 240 [facility] Building [address] [place] [address] Ronald Mills MD 240 [facility] Max [address] [place] [address] documented as of this encounter Visit Diagnoses Not on filedocumented in this encounter Additional Health Concerns Infection Onset Date Last Indicated Resolved Time COVID-19 03/05/2022 03/05/2022 03/15/2022 7:18 PM EDT Assessment Noted Time PHQ-9 Depression Total Score: 2 11/07/19 19 2:06 PM EDT documented as of this encounter Care Teams Contemporary Or Modern Dancer Relationship Specialty Start Date End Date Caitlyn Bowie MD 3400 [facility] 1 [place] [address] PCP - General Internal Medicine 05/06/21 documented as of this encounter
--- OUTSIDE RECORDS SUMMARY | 2025-04-10 14:08 | XMS_ITS | Encounter Summary ---
Author Organization [facility] and [facility] Address [address] [place] [address] Care Team Providers Care Oracle Analyst Name Role Phone Caitlyn Bowie MD Primary Care Provider +1- [phone] Encounter Details Date Type Department Care Team (Late st Contact Info) Description 04/28/2021 Scanned Document INTERFACE DEFAULT [address] [place] [address] System, Provider Not In Social History Tobacco [...] [facility] Building [address] [place], [place] [phone] Ronald Mills MD [address] [place] [address] [address] [place] [address] documented as of this encounter [...] as of this encounter Care Teams Oracle Analyst Relationship Specialty Start Date End Date Caitlyn Bowie MD [address] [address] PCP - General Internal Medicine 05/06/21 documented as of this encounter
--- OUTSIDE RECORDS SUMMARY | 2025-04-10 14:08 | XMS_ITS | Encounter Summary ---
Author Organization [facility] and [facility] Address [address] [place] [address] Care Team Providers Care Fire Equipment Operator Name Role Phone Caitlyn Bowie MD Primary Care Provider +1- [phone] Encounter Details Date Type Department Care Team (Late st Contact Info) Description 12/03/2019 Scanned Document [facility] Health Information Management [address] [place] [address] External, Provider Social History Tobacco Use Types [...] [facility] 240 [facility] Building [address] [place] [address] Ronald Mills MD [address] [place] [address] A1 [place] [address] documented as of this encounter Visit Diagnoses Not on filedocumented in this encounter Additional Health Concerns Infection Onset Date Last Indicated Resolved Time COVID-19 03/05/2022 03/05/2022 03/15/2022 7:18 PM EDT Assessment Noted Time PHQ-9 Depression Total Score: 2 11/07/19 19 2:06 PM EDT documented as of this encounter Care Teams Fire Equipment Operator Relationship Specialty Start Date End Date Caitlyn Bowie MD 3400 [facility] 1 [place] [address] PCP - General Internal Medicine 05/06/21 Henry Kelly MD Pulmonary Department 175 [facility], [address] [place] [address] Physician Pulmonary Disease 09/06/17 06/22/20 documented as of this encounter
--- OUTSIDE RECORDS SUMMARY | 2025-04-10 14:08 | XMS_ITS | Encounter Summary ---
Author Organization [facility] and [facility] Address [address] [place] [address] Care Team Providers Care Provider Contracting Consultant Name Role Phone Caitlyn Bowie MD Primary Care Provider +1- [phone] Reason for Visit * Reason Comments Advice Only mass Encounter Details Date Type Department Care Team (Late st Contact Info) Description 09/06/2021 Telephone [facility] Hematology Program at [address] [address] Ronald Mills MD [address] [place] [address] Advice Only (mass) Social History Tobacco [...] Center at [facility] 240 [facility] Building [address] [place], [place] [address] Ronald Mills MD 240 [facility] Max [address]1 [place] [address] documented as of this encounter Visit Diagnoses Not on filedocumented in this encounter Additional Health Concerns Infection Onset Date Last Indicated Resolved Time COVID-19 03/05/2022 03/05/2022 03/15/2022 7:18 PM EDT Assessment Noted Time PHQ-9 Depression Total Score: 2 11/07/19 19 2:06 PM EDT documented as of this encounter Care Teams Provider Contracting Consultant Relationship Specialty Start Date End Date Caitlyn Bowie MD [address] [address] PCP - General Internal Medicine 05/06/21 documented as of this encounter
--- OUTSIDE RECORDS SUMMARY | 2025-04-10 14:08 | XMS_ITS | Encounter Summary ---
Author Organization [facility] and [facility] Address [address] [place] [address] Care Team Providers Care Managing Manager Name Role Phone Caitlyn Bowie MD Primary Care Provider +1- [phone] Encounter Details Date Type Department Care Team (Late st Contact Info) Description 06/07/2021 Scanned Document Onco-Oncology Program at [address] [place] [address] Norma Renee MD [address] [place] [address] 2 [place] [address] Social History Tobacco Use Types [...] PM EDT Telemedicine Cancer Center at [address] [place], [place] [phone] Ronald Mills MD 240 [facility] A1 [place] [address] documented as of this encounter Visit Diagnoses Not on filedocumented in this encounter Additional Health Concerns Infection Onset Date Last Indicated Resolved Time COVID-19 03/05/2022 03/05/2022 03/15/2022 7:18 PM EDT Assessment Noted Time PHQ-9 Depression Total Score: 2 11/07/19 19 2:06 PM EDT documented as of this encounter Care Teams Managing Manager Relationship Specialty Start Date End Date Caitlyn Bowie MD [address] [address] PCP - General Internal Medicine 05/06/21 documented as of this encounter
--- OUTSIDE RECORDS SUMMARY | 2025-04-10 14:08 | XMS_ITS | Encounter Summary ---
Author Organization [facility] Address [address] [place] [address] Care Team Providers Care Earth Mover Name Role Phone Caitlyn Bowie MD Primary Care Provider +1- [phone] Encounter Details Date Type Department Care Team (Late st Contact Info) Description 04/24/2021 Scanned Document INTERFACE DEFAULT [address] [place] [address] System, Provider Not In Social History Tobacco [...] [facility] Building [address] [place], [place] [address] Ronald Mills MD [address] [place] [address] [address] [place] [address] documented as [...] documented as of this encounter Care Teams Earth Mover Relationship Specialty Start Date End Date Caitlyn Bowie MD [address] [address] PCP - General Internal Medicine 05/06/21 documented as of this encounter
--- OUTSIDE RECORDS SUMMARY | 2025-04-10 14:08 | XMS_ITS | Clinical Summary ---
Author Organization [facility] Address [address] [place] [address] Care Team Providers Care Water Pump Installer Name Role Phone Brennan Burnett MD Primary Care Provider [phone] Allergies Active Allergy Reactions Criticality Noted Date [...] age to complete this topic Care Teams Water Pump Installer Relationship Specialty Start Date End Date Brennan Burnett MD [address] [place] [address] PCP - General Internal Medicine 07/06/20
--- OUTSIDE RECORDS SUMMARY | 2025-04-10 14:08 | XMS_ITS | Encounter Summary ---
Author Organization [facility] and [facility] Address 20 [place] [address] Care Team Providers Care Explosive Operator Bomb Name Role Phone Caitlyn Bowie MD Primary Care Provider +1- [phone] Encounter Details Date Type Department Care Team (Late st Contact Info) Description 01/22/2020 Scanned Document [facility] for [facility] 800 [place] [address] Kerwin Menjivar MD 260 [facility] [place] 3 [place] [address] Social History Tobacco Use Types [...] PM EDT Telemedicine Cancer Center at [address] [place] [address] Ronald Mills MD 240 [facility] Max [address]1 [place] [address] documented as of this encounter Visit Diagnoses Not on filedocumented in this encounter Additional Health Concerns Infection Onset Date Last Indicated Resolved Time COVID-19 03/05/2022 03/05/2022 03/15/2022 7:18 PM EDT Assessment Noted Time PHQ-9 Depression Total Score: 2 11/07/19 19 2:06 PM EDT documented as of this encounter Care Teams Explosive Operator Bomb Relationship Specialty Start Date End Date Caitlyn Bowie MD [address] [address] PCP - General Internal Medicine 05/06/21 Henry Kelly MD Pulmonary Department [address] [place] [address], [address] [place] [address] Physician Pulmonary Disease 09/06/17 06/22/20 documented as of this encounter
--- OUTSIDE RECORDS SUMMARY | 2025-04-10 14:08 | XMS_ITS | Encounter Summary ---
Author Organization [facility] and [facility] Address 20 [place] [address] Care Team Providers Care Dental Patient Coordinator Name Role Phone Caitlyn Bowie MD Primary Care Provider +1- [phone] Encounter Details Date Type Department Care Team (Late st Contact Info) Description 05/17/2021 Scanned Document Cancer Center at [address] [address] External, Provider Social History Tobacco Use Types [...] [facility] 240 [facility] Building [address] [place], [place] [address] Ronald Mills MD [address] [place] [address] A1 [place] [address] documented as of [...] as of this encounter Care Teams Dental Patient Coordinator Relationship Specialty Start Date End Date Caitlyn Bowie MD [address] [address] PCP - General Internal Medicine 05/06/21 documented as of this encounter
--- OUTSIDE RECORDS SUMMARY | 2025-04-10 14:08 | XMS_ITS | Encounter Summary ---
Author Organization [facility] Address [address] [place] [address] Phone Care Team Providers Care Refractory Manager Name Role Phone Caitlyn Bowie MD Primary Care Provider +1- [phone] Encounter Details Date Type Department Care Team (Late Contact Info) Description 12/10/2024 Documentation Only [facility] [address] [place] [address] Marina Abdi 2150 [place] [address] Social History Tobacco Use Types [...] Visit [facility] [address] [place] [address] Rubén Ashraf MD [address] [place] [address] [place] [address] documented as of this encounter Visit Diagnoses Not on filedocumented in this encounter Care Teams Refractory Manager Relationship Specialty Start Date End Date Caitlyn Bowie MD 3400 [place], [place] PCP - General Internal Medicine 09/24/24 documented as of this encounter
--- OUTSIDE RECORDS SUMMARY | 2025-04-10 14:08 | XMS_ITS | Encounter Summary ---
Author Organization [facility] and [facility] Address [address] [place] [address] Care Team Providers Care Customer Agent Name Role Phone Caitlyn Bowie MD Primary Care Provider +1- [phone] Encounter Details Date Type Department Care Team (Late st Contact Info) Description 09/24/2021 Scanned Document INTERFACE DEFAULT [address] [place] [address] System, Provider Not In Social History Tobacco [...] [facility] 240 [facility] Building [address] [place] [address] Ronald Mills MD [address] [place] [address] [address] [place] [address] documented as of this [...] as of this encounter Care Teams Customer Agent Relationship Specialty Start Date End Date Caitlyn Bowie MD [facility] [address] [address] PCP - General Internal Medicine 05/06/21 documented as of this encounter
--- OUTSIDE RECORDS SUMMARY | 2025-04-10 14:08 | XMS_ITS | Encounter Summary ---
Author Organization [facility] Address [address] [place] [address] Care Team Providers Care Garment Form Assembler Name Role Phone Caitlyn Bowie MD Primary Care Provider +1- [phone] Encounter Details Date Type Department Care Team (Late st Contact Info) Description 05/05/2021 Scanned Document INTERFACE DEFAULT [address] [place] [address] System, Provider Not In Social History Tobacco [...] Center at [facility] 240 [facility] Building [address] [place] [address] Ronald Mills MD [address] [place] [address] [address] [place] [address] documented as of this encounter Visit Diagnoses Not on filedocumented in this encounter Additional Health Concerns Infection Onset Date Last Indicated Resolved Time COVID-19 03/05/2022 03/05/2022 03/15/2022 7:18 PM EDT Assessment Noted Time PHQ-9 Depression Total Score: 2 11/07/19 19 2:06 PM EDT documented as of this encounter Care Teams Garment Form Assembler Relationship Specialty Start Date End Date Caitlyn Bowie MD [address] [address] PCP - General Internal Medicine 05/06/21 documented as of this encounter
--- OUTSIDE RECORDS SUMMARY | 2025-04-10 14:08 | XMS_ITS | Encounter Summary ---
Author Organization [facility] Address [address] [place] [address] Care Team Providers Care Demographic Analyst Name Role Phone Caitlyn Bowie MD Primary Care Provider +1- [phone] Encounter Details Date Type Department Care Team (Late st Contact Info) Description 09/09/2021 Scanned Document INTERFACE DEFAULT [address] [place] [address] System, Provider Not In Social History Tobacco [...] Center at [facility] 240 [facility] Building [address] [place] [address] Ronald Mills MD [address] [place] [address] [address]1 [place] [address] documented as of this encounter Visit Diagnoses Not on filedocumented in this encounter Additional Health Concerns Infection Onset Date Last Indicated Resolved Time COVID-19 03/05/2022 03/05/2022 03/15/2022 7:18 PM EDT Assessment Noted Time PHQ-9 Depression Total Score: 2 11/07/19 19 2:06 PM EDT documented as of this encounter Care Teams Demographic Analyst Relationship Specialty Start Date End Date Caitlyn Bowie MD [address] [address] PCP - General Internal Medicine 05/06/21 documented as of this encounter
--- OUTSIDE RECORDS SUMMARY | 2025-04-10 14:08 | XMS_ITS | Encounter Summary ---
Author Organization [facility] and [facility] Address [address] [place] [address] Care Team Providers Care Cardiopulmonary Specialist Name Role Phone Caitlyn Bowie MD Primary Care Provider +1- [phone] Encounter Details Date Type Department Care Team (Late st Contact Info) Description 04/27/2021 Scanned Document INTERFACE DEFAULT [address] [place] [address] System, Provider Not In Social History Tobacco [...] Center at [facility] 240 [facility] Building [address] [place] [address] Ronald Mills MD [address] [place] [address] [address] [place] [address] documented as of this encounter [...] documented as of this encounter Care Teams Cardiopulmonary Specialist Relationship Specialty Start Date End Date Caitlyn Bowie MD [address] [address] PCP - General Internal Medicine 05/06/21 documented as of this encounter
--- OUTSIDE RECORDS SUMMARY | 2025-04-10 14:08 | XMS_ITS | Encounter Summary ---
Author Organization [facility] Address [address] [place] [address] Care Team Providers Care Art Museum Docent Name Role Phone Caitlyn Bowie MD Primary Care Provider +1- [phone] Encounter Details Date Type Department Care Team (Late st Contact Info) Description 04/29/2021 Scanned Document INTERFACE DEFAULT [address] [place] [address] System, Provider Not In Social History Tobacco [...] [facility] 240 [facility] [address] [place] [address] Ronald Mills MD [address] [place] [address] [address] [place] [address] documented as of this encounter [...] as of this encounter Care Teams Art Museum Docent Relationship Specialty Start Date End Date Caitlyn Bowie MD [address] [address] PCP - General Internal Medicine 05/06/21 documented as of this encounter
--- OUTSIDE RECORDS SUMMARY | 2025-04-10 14:08 | XMS_ITS | Encounter Summary ---
Author Organization [facility] and [facility] Address [address] [place] [address] Care Team Providers Care Instructional Technologist Name Role Phone Caitlyn Bowie MD Primary Care Provider +1- [phone] Encounter Details Date Type Department Care Team (Late st Contact Info) Description 11/29/2019 Scanned Document [facility] Health Information Management [address] [place] [address] External, Provider Social History Tobacco Use Types [...] Center at [facility] 240 [facility] Building [address] [place], [place] [phone] Ronald Mills MD [address] [place] [address] [address]1 [place] [address] documented as of this encounter [...] as of this encounter Care Teams Instructional Technologist Relationship Specialty Start Date End Date Caitlyn Bowie MD 3400 [facility] 1 [place] [address] PCP - General Internal Medicine 05/06/21 Henry Kelly MD Pulmonary Department 175 [facility], [address] [place] [address] Physician Pulmonary Disease 09/06/17 06/22/20 documented as of this encounter
--- OUTSIDE RECORDS SUMMARY | 2025-04-10 14:08 | XMS_ITS | Encounter Summary ---
Author Organization [facility] Address [address] [place] [address] Phone Care Team Providers Care Consulting Engineer Name Role Phone Caitlyn Bowie MD Primary Care Provider +1- [phone] Encounter Details Date Type Department Care Team (Late Contact Info) Description 12/10/2024 Documentation Only [facility] [address] [place] [address] Marina Abdi [address] [place] [address] Social History Tobacco Use Types [...] [facility] [address] [place] [address] Rubén Ashraf MD [address] [place] [address] [place] [address] documented as of this encounter Visit Diagnoses Not on filedocumented in this encounter Care Teams Consulting Engineer Relationship Specialty Start Date End Date Caitlyn Bowie MD 3400 [place], [place] PCP - General Internal Medicine 09/24/24 documented as of this encounter
--- OUTSIDE RECORDS SUMMARY | 2025-04-10 14:08 | XMS_ITS | Encounter Summary ---
Author Organization [facility] Address [address] [place] [address] Care Team Providers Care Supervisor Tellers Name Role Phone Caitlyn Bowie MD Primary Care Provider +1- [phone] Reason for Visit * Reason Comments Advice Only Encounter Details Date Type Department Care Team ([facility] st Contact Info) Description 06/01/2021 Telephone [facility] at [address] [phone] Ronald Mills MD [address] [place] [address] Advice Only Social History Tobacco Use [...] added that she's called before and sent [employer] messages but hasn't received a reply,[phone]. documented in this encounter Plan of Treatment Upcoming Encounters Date Type Department Care Team (Late st Contact Info) Description 04/25/2025 4:00 PM EDT Telemedicine Cancer Center at [facility] 240 [facility] Building [address] [place], [place] [phone] Ronald Mills MD 240 [facility] Max [address] [place] [phone] documented as of this encounter Visit Diagnoses Not on filedocumented in this encounter Additional Health Concerns Infection Onset Date Last Indicated Resolved Time COVID-19 03/05/2022 03/05/2022 03/15/2022 7:18 PM EDT Assessment Noted Time PHQ-9 Depression Total Score: 2 11/07/19 19 2:06 PM EDT documented as of this encounter Care Teams Supervisor Tellers Relationship Specialty Start Date End Date Caitlyn Bowie MD 3400 [facility] 1 [place] [address] PCP - General Internal Medicine 05/06/21 documented as of this encounter
--- OUTSIDE RECORDS SUMMARY | 2025-04-10 14:08 | XMS_ITS | Encounter Summary ---
Author Organization [facility] and [facility] Address [address] [place] [address] Care Team Providers Care Assistant In Nursing Name Role Phone Caitlyn Bowie MD Primary Care Provider +1- [phone] Encounter Details Date Type Department Care Team (Late st Contact Info) Description 09/23/2021 Scanned Document INTERFACE DEFAULT [address] [place] [address] System, Provider Not In Social History Tobacco [...] [facility] 240 [facility] Building [address] [place], [place] [address] Ronald Mills MD [address] [place] [address] [address] [place] [address] documented as of this encounter [...] as of this encounter Care Teams Assistant In Nursing Relationship Specialty Start Date End Date Caitlyn Bowie MD [address] [address] PCP - General Internal Medicine 05/06/21 documented as of this encounter
--- OUTSIDE RECORDS SUMMARY | 2025-04-10 14:08 | XMS_ITS | Encounter Summary ---
Author Organization [facility] Address [address] [place] [address] Phone Care Team Providers Care Green Chain Off Bearer Name Role Phone Caitlyn Bowie MD Primary Care Provider +1- [phone] Encounter Details Date Type Department Care Team (Late Contact Info) Description 12/10/2024 Documentation Only [facility] [address] [place] [address] Marina Abdi 2150 [place] [address] Social History Tobacco Use Types [...] Visit [facility] [address] [place] [address] Rubén Ashraf MD [address] [place] [address] [place] [address] documented as of this encounter Visit Diagnoses Not on filedocumented in this encounter Care Teams Green Chain Off Bearer Relationship Specialty Start Date End Date Caitlyn Bowie MD 3400 [place], [place] PCP - General Internal Medicine 09/24/24 documented as of this encounter
--- OUTSIDE RECORDS SUMMARY | 2025-04-10 14:08 | XMS_ITS | Encounter Summary ---
Author Organization [facility] Address 20 [place] [address] Care Team Providers Care Manager Immunology Name Role Phone Caitlyn Bowie MD Primary Care Provider +1- [phone] Encounter Details Date Type Department Care Team (Late st Contact Info) Description 09/10/2021 Scanned Document Cardiovascular Medicine at [address] [place], [place] [address] oNrma Renee MD [address] [place] [phone] Social History Tobacco Use Types Packs/Day Years [...] PM EDT Telemedicine Cancer Center at [address] [place], [place] [address] Ronald Mills MD [address] [place] [address] [address]1 [place] [address] documented as of this encounter Visit Diagnoses Not on filedocumented in this encounter Additional Health Concerns Infection Onset Date Last Indicated Resolved Time COVID-19 03/05/2022 03/05/2022 03/15/2022 7:18 PM EDT Assessment Noted Time PHQ-9 Depression Total Score: 2 11/07/19 19 2:06 PM EDT documented as of this encounter Care Teams Manager Immunology Relationship Specialty Start Date End Date Caitlyn Bowie MD [address] [address] PCP - General Internal Medicine 05/06/21 documented as of this encounter
--- OUTSIDE RECORDS SUMMARY | 2025-04-10 14:08 | XMS_ITS | Encounter Summary ---
Author Organization [facility] Address [address] [place] [address] Care Team Providers Care Weights And Measures Inspector Name Role Phone Caitlyn Bowie MD Primary Care Provider +1- [phone] Encounter Details Date Type Department Care Team (Late st Contact Info) Description 01/28/2013 Scanned Document Thoracic Oncology Program at [address] [address] Solo Henry MD [address] [place] [phone] Social History Tobacco Use Types Packs/Day [...] [facility] 240 [facility] Building [address] [place], [place] [address] Ronald Mills MD 240 [facility] [address] [place] [address] documented as of this encounter Visit Diagnoses Not on filedocumented in this encounter Additional Health Concerns Infection Onset Date Last Indicated Resolved Time COVID-19 03/05/2022 03/05/2022 03/15/2022 7:18 PM EDT documented as of this encounter Care Teams Weights And Measures Inspector Relationship Specialty Start Date End Date Caitlyn Bowie MD 3400 [facility] Max 1 [place] [address] PCP - General Internal Medicine 05/06/21 Henry Kelly MD Pulmonary Department 175 [facility], [address] [place] [address] Physician Pulmonary Disease 09/06/17 06/22/20 documented as of this encounter
--- OUTSIDE RECORDS SUMMARY | 2025-04-10 14:09 | XMS_ITS | Encounter Summary ---
Author Organization [facility] Address [address] [place] [address] Care Team Providers Care Smash Piecer Name Role Phone Caitlyn Bowie MD Primary Care Provider +1- [phone] Encounter Details Date Type Department Care Team (Late st Contact Info) Description 09/28/[address] [facility] Health Information Management [address] [place] [address] External, Provider Social History Tobacco Use Types [...] at [facility] 240 [facility] Building [address] [place], [place] [phone] Ronald Mills MD 240 [facility] [address] [place] [address] documented as of this encounter Procedures Procedure Name Priority Date/Time Associated Diagnosis Comments LAB SCAN Routine 09/09/2015 documented in this encounter Results * Lab Scan (09/09/2015) Blood specimen (specimen) us Provider External LAB BLOOD ORDERABLES Final Res ult [facility] documented in this encounter Visit Diagnoses Not on filedocumented in this encounter Additional Health Concerns Infection Onset Date Last Indicated Resolved Time COVID-19 03/05/2022 03/05/2022 03/15/2022 7:18 PM EDT documented as of this encounter Care Teams Smash Piecer Relationship Specialty Start Date End Date Caitlyn Bowie MD 3400 [facility] 1 [place] [address] PCP - General Internal Medicine 05/06/21 Henry Kelly MD Pulmonary Department 175 [facility], [address] [place] [address] Physician Pulmonary Disease 09/06/17 06/22/20 documented as of this encounter
--- OUTSIDE RECORDS SUMMARY | 2025-04-10 14:09 | XMS_ITS | Encounter Summary ---
Author Organization [facility] and [facility] Address [address] [place] [address] Care Team Providers Care Bullet Lubricating Machine Operator Name Role Phone Caitlyn Bowie MD Primary Care Provider +1- [phone] Encounter Details Date Type Department Care Team (Late st Contact Info) Description 06/08/2022 Scanned Document INTERFACE DEFAULT [address] [place] [address] System, Provider Not In Social History Tobacco [...] [facility] 240 [facility] Building [address] [place], [place] [phone] Ronald Mills MD [address] [place] [address] [address]1 [place] [address] documented as of [...] documented as of this encounter Care Teams Bullet Lubricating Machine Operator Relationship Specialty Start Date End Date Caitlyn Bowie MD [address] [address] PCP - General Internal Medicine 05/06/21 documented as of this encounter
--- OUTSIDE RECORDS SUMMARY | 2025-04-10 14:09 | XMS_ITS | Encounter Summary ---
Author Organization [facility] and [facility] Address [address] [place] [address] Care Team Providers Care Rice Farmworker Name Role Phone Caitlyn Bowie MD Primary Care Provider +1- [phone] Encounter Details Date Type Department Care Team (Late st Contact Info) Description 06/23/2022 Scanned Document INTERFACE DEFAULT [address] [place] [address] System, Provider Not In Social History Tobacco [...] [facility] Building [address] [place] [address] Ronald Mills MD [address] [place] [address] [address] [place] [address] documented as of this encounter Visit Diagnoses Not on filedocumented in this encounter Additional Health Concerns Assessment Noted Time PHQ-9 Depression Total Score: 2 11/07/19 19 2:06 PM EDT documented as of this encounter Care Teams Rice Farmworker Relationship Specialty Start Date End Date Caitlyn Bowie MD [address] [address] PCP - General Internal Medicine 05/06/21 documented as of this encounter
--- OUTSIDE RECORDS SUMMARY | 2025-04-10 14:09 | XMS_ITS | Encounter Summary ---
Author Organization [facility] and [facility] Address [address] [place] [address] Care Team Providers Care Litigation Associate Name Role Phone Caitlyn Bowie MD Primary Care Provider +1- [phone] Encounter Details Date Type Department Care Team (Late st Contact Info) Description 06/27/2019 Scanned Document Onco-Oncology Program at [address] [place] [address] Norma Renee MD [address] [place] [address] 2 [place] [address] Social History Tobacco Use Types [...] PM EDT Telemedicine Cancer Center at [address] [place], [place] [phone] Ronald Mills MD 240 [facility] A1 [place] [address] documented as of this encounter Visit Diagnoses [...] MD 3400 [facility] 1 [place] [address] PCP - General Internal Medicine 05/06/21 Henry Kelly MD Pulmonary Department 175 [facility], [address] [place] [address] Physician Pulmonary Disease 09/06/17 06/22/20 documented as of this encounter
--- OUTSIDE RECORDS SUMMARY | 2025-04-10 14:09 | XMS_ITS | Encounter Summary ---
Author Organization [facility] and [facility] Address [address] [place] [address] Care Team Providers Care Stock Mixer Name Role Phone Caitlyn Bowie MD Primary Care Provider +1- [phone] Encounter Details Date Type Department Care Team (Late st Contact Info) Description 09/01/2023 Scanned Document INTERFACE DEFAULT [address] [place] [address] System, Provider Not In Social History Tobacco [...] Cancer Center at [facility] 240 [facility] Building [address] [place] [address] Ronald Mills MD [address] [place] [address] [address] [place] [address] documented as of this encounter Visit Diagnoses Not on filedocumented in this encounter Additional Health Concerns Assessment Noted Time PHQ-9 Depression Total Score: 2 11/07/19 19 2:06 PM EDT documented as of this encounter Care Teams Stock Mixer Relationship Specialty Start Date End Date Caitlyn Bowie MD [address] [address] PCP - General Internal Medicine 05/06/21 documented as of this encounter
--- OUTSIDE RECORDS SUMMARY | 2025-04-10 14:09 | XMS_ITS | Encounter Summary ---
Author Organization [facility] Address [address] [place] [address] Care Team Providers Care Engineer Operations And Maintenance Name Role Phone Caitlyn Bowie MD Primary Care Provider +1- [phone] Encounter Details Date Type Department Care Team (Late st Contact Info) Description 07/12/2019 Scanned Document Onco-Oncology Program at [address] [place] [address] Norma Renee MD [address] [place] [address] 2 [place] [address] Social History Tobacco Use Types [...] PM EDT Telemedicine Cancer Center at [address] [place], [place] [phone] Ronald Mills MD 240 [facility] A[address] [place] [address] documented as of this encounter Visit Diagnoses Not on filedocumented in this encounter Additional Health Concerns Infection Onset Date Last Indicated Resolved Time COVID-19 03/05/2022 03/05/2022 03/15/2022 7:18 PM EDT Assessment Noted Time PHQ-9 Depression Total Score: 2 11/07/19 19 2:06 PM EDT documented as of this encounter Care Teams Engineer Operations And Maintenance Relationship Specialty Start Date End Date Caitlyn Bowie MD 3400 [facility] 1 [place] [address] PCP - General Internal Medicine 05/06/21 Henry Kelly MD Pulmonary Department 175 [facility], [address] [place] [address] Physician Pulmonary Disease 09/06/17 06/22/20 documented as of this encounter
--- OUTSIDE RECORDS SUMMARY | 2025-04-10 14:09 | XMS_ITS | Encounter Summary ---
Author Organization [facility] Address [address] [place] [address] Care Team Providers Care Machine Clerical Verifier Name Role Phone Caitlyn Bowie MD Primary Care Provider +1- [phone] Encounter Details Date Type Department Care Team (Late st Contact Info) Description 06/28/2022 Scanned Document INTERFACE DEFAULT [address] [place] [address] System, Provider Not In Social History Tobacco [...] [facility] at [facility] 240 [facility] Building [address] [place], [place] [phone] Ronald Mills MD [address] [place] [address] [address] [place] [address] documented as of this encounter [...] as of this encounter Care Teams Machine Clerical Verifier Relationship Specialty Start Date End Date Caitlyn Bowie MD [address] [address] PCP - General Internal Medicine 05/06/21 documented as of this encounter
--- OUTSIDE RECORDS SUMMARY | 2025-04-10 14:09 | XMS_ITS | Encounter Summary ---
Author Organization [facility] Address [address] [place] [address] Care Team Providers Care Bessemer Bottom Maker Name Role Phone Caitlyn Bowie MD Primary Care Provider +1- [phone] Encounter Details Date Type Department Care Team (Late st Contact Info) Description 10/24/2022 Scanned Document INTERFACE DEFAULT [address] [place] [address] System, Provider Not In Social History Tobacco [...] at [facility] 240 [facility] Building [address] [place], [place] [phone] Ronald Mills MD [address] [place] [address] [address] [place] [address] documented as of this [...] documented as of this encounter Care Teams Bessemer Bottom Maker Relationship Specialty Start Date End Date Caitlyn Bowie MD [facility] [address] [address] PCP - General Internal Medicine 05/06/21 documented as of this encounter
--- OUTSIDE RECORDS SUMMARY | 2025-04-10 14:09 | XMS_ITS | Encounter Summary ---
Author Organization [facility] Address [address] [place] [address] Care Team Providers Care Master Cook Name Role Phone Caitlyn Bowie MD Primary Care Provider +1- [phone] Encounter Details Date Type Department Care Team (Late st Contact Info) Description 12/23/2022 Scanned Document INTERFACE DEFAULT [address] [place] [address] System, Provider Not In Social History Tobacco [...] – [facility] 240 [facility] Building [address] [place] [address] Ronald Mills MD [address] [place] [address] [address]1 [place] [address] documented as of this encounter Visit Diagnoses Not on filedocumented in this encounter Additional Health Concerns Assessment Noted Time PHQ-9 Depression Total Score: 2 11/07/19 19 2:06 PM EDT documented as of this encounter Care Teams Master Cook Relationship Specialty Start Date End Date Caitlyn Bowie MD [address] [address] PCP - General Internal Medicine 05/06/21 documented as of this encounter
--- OUTSIDE RECORDS SUMMARY | 2025-04-10 14:09 | XMS_ITS | Encounter Summary ---
Author Organization [facility] Address [address] [place] [address] Care Team Providers Care Music Professionals Name Role Phone Caitlyn Bowie MD Primary Care Provider +1- [phone] Encounter Details Date Type Department Care Team (Late st Contact Info) Description 04/13/2023 Scanned Document INTERFACE DEFAULT [address] [place] [address] System, Provider Not In Social History Tobacco [...] Telemedicine Cancer Center at [facility] 240 [facility] Building [address] [place] [address] Ronald Mills MD [address] [place] [address] [address] [place] [address] documented as of this encounter [...] as of this encounter Care Teams Music Professionals Relationship Specialty Start Date End Date Caitlyn Bowie MD [address] [address] PCP - General Internal Medicine 05/06/21 documented as of this encounter
--- OUTSIDE RECORDS SUMMARY | 2025-04-10 14:09 | XMS_ITS | Encounter Summary ---
Author Organization [facility] and [facility] Address [address] [place] [address] Care Team Providers Care Mobile Health Vehicle Operator Name Role Phone Caitlyn Bowie MD Primary Care Provider +1- [phone] Encounter Details Date Type Department Care Team (Late st Contact Info) Description 04/27/2017 Scanned Document [facility] Health Information Management [address] [place] [address] External, Provider Social History Tobacco Use Types [...] Cancer Center at [facility] 240 [facility] Building [address] [place], [place] [id number] Ronald Mills MD 240 [facility] A1 [place] [address] documented as of this encounter Visit Diagnoses Not on filedocumented in this encounter Additional Health Concerns Infection Onset Date Last Indicated Resolved Time COVID-19 03/05/2022 03/05/2022 03/15/2022 7:18 PM EDT documented as of this encounter Care Teams Mobile Health Vehicle Operator Relationship Specialty Start Date End Date Caitlyn Bowie MD 3400 [facility] 1 [place] [address] PCP - General Internal Medicine 05/06/21 Henry Kelly MD Pulmonary Department [address] [facility], [address] [place] [address] Physician Pulmonary Disease 09/06/17 06/22/20 documented as of this encounter
--- OUTSIDE RECORDS SUMMARY | 2025-04-10 14:09 | XMS_ITS | Encounter Summary ---
Author Organization [facility] and [facility] Address [address] [place] [address] Care Team Providers Care Supervisor Plate Pasting Name Role Phone Caitlyn Bowie MD Primary Care Provider +1- [phone] Encounter Details Date Type Department Care Team (Late st Contact Info) Description 06/27/2019 Scanned Document Onco-Oncology Program at [address] [place] [address] Norma Renee MD [address] [place] [address] 2 [place] [address] Social History Tobacco [...] PM EDT Tele[facility]icine Cancer Center at [address] [place], [place] [phone] Ronald Mills MD 240 [facility] A1 [place] [address] documented as of this encounter Visit Diagnoses Not on filedocumented in this encounter Additional Health Concerns Infection Onset Date Last Indicated Resolved Time COVID-19 03/05/2022 03/05/2022 03/15/2022 7:18 PM EDT Assessment Noted Time PHQ-9 Depression Total Score: 2 11/07/19 19 2:06 PM EDT documented as of this encounter Care Teams Supervisor Plate Pasting Relationship Specialty Start Date End Date Caitlyn Bowie MD 3400 [facility] 1 [place] [address] PCP - General Internal Medicine 05/06/21 Henry Kelly MD Pulmonary Department 175 [facility], [address] [place] [address] Physician Pulmonary Disease 09/06/17 06/22/20 documented as of this encounter
--- OUTSIDE RECORDS SUMMARY | 2025-04-10 14:09 | XMS_ITS | Encounter Summary ---
Author Organization [facility] and [facility] Address [address] [place] [address] Care Team Providers Care Machine I Coremaker Name Role Phone Caitlyn Bowie MD Primary Care Provider +1- [phone] Encounter Details Date Type Department Care Team (Late st Contact Info) Description 01/02/2024 Scanned Document INTERFACE DEFAULT [address] [place] [address] System, Provider Not In Social History Tobacco [...] [facility] [address] [facility] Building [address] [place], [place] [address] Ronald Mills MD [address] [place] [address] Max [address]1 [place] [address] documented as of this encounter [...] of this encounter Care Teams Machine I Coremaker Relationship Specialty Start Date End Date Caitlyn Bowie MD [address] [address] PCP - General Internal Medicine 05/06/21 documented as of this encounter
--- OUTSIDE RECORDS SUMMARY | 2025-04-10 14:09 | XMS_ITS | Encounter Summary ---
Author Organization [facility] and [facility] Address 20 [place] [address] Care Team Providers Care Filling Hand Name Role Phone Caitlyn Bowie MD Primary Care Provider +1- [phone] Encounter Details Date Type Department Care Team (Late st Contact Info) Description 08/23/2022 Abstract Cardiovascular Medicine at [address] [place] [address] Norma Renee MD [address] [place] [phone] Social History Tobacco Use Types Packs/Day Years [...] PM EDT Telemedicine Cancer Center at [address] [place] [address] Ronald Mills MD [address] [place] [address] [address]1 [place] [address] documented as of this encounter Visit Diagnoses Not on filedocumented in this encounter Additional Health Concerns Assessment Noted Time PHQ-9 Depression Total Score: 2 11/07/19 19 2:06 PM EDT documented as of this encounter Care Teams Filling Hand Relationship Specialty Start Date End Date Caitlyn Bowie MD [address] [address] PCP - General Internal Medicine 05/06/21 documented as of this encounter
--- OUTSIDE RECORDS SUMMARY | 2025-04-10 14:09 | XMS_ITS | Encounter Summary ---
Author Organization [facility] and [facility] Address [address] [place] [address] Care Team Providers Care Hvac Tech Name Role Phone Caitlyn Bowie MD Primary Care Provider +1- [phone] Encounter Details Date Type Department Care Team (Late st Contact Info) Description 04/19/2023 Scanned Document INTERFACE DEFAULT [address] [place] [address] System, Provider Not In Social History Tobacco [...] [facility] Building [address] [place], [place] [address] Ronald Mills MD [address] [place] [address] [address] [place] [address] documented as of this encounter [...] as of this encounter Care Teams Hvac Tech Relationship Specialty Start Date End Date Caitlyn Bowie MD [address] [address] PCP - General Internal Medicine 05/06/21 documented as of this encounter
--- OUTSIDE RECORDS SUMMARY | 2025-04-10 14:09 | XMS_ITS | Encounter Summary ---
Author Organization [facility] and [facility] Address 20 [place] [address] Care Team Providers Care Mathematical Physicist Name Role Phone Caitlyn Bowie MD Primary Care Provider +1- [phone] Encounter Details Date Type Department Care Team (Late st Contact Info) Description 07/08/2022 Scanned Document Cardiovascular Medicine at [address] [place], [place] [address] Norma Renee MD [address] [place] [phone] Social History Tobacco Use Types Packs/Day Years [...] PM EDT Telemedicine Cancer Center at [address] [place], [place] [address] Ronald Mills MD [address] [place] [address] [address]1 [place] [address] documented as of this encounter Visit Diagnoses Not on filedocumented in this encounter Additional Health Concerns Assessment Noted Time PHQ-9 Depression Total Score: 2 11/07/19 19 2:06 PM EDT documented as of this encounter Care Teams Mathematical Physicist Relationship Specialty Start Date End Date Caitlyn Bowie MD [address] [address] PCP - General Internal Medicine 05/06/21 documented as of this encounter
--- OUTSIDE RECORDS SUMMARY | 2025-04-10 14:09 | XMS_ITS | Encounter Summary ---
Author Organization [facility] and [facility] Address [address] [place] [address] Care Team Providers Care Finance Effectiveness Manager Name Role Phone Caitlyn Bowei MD Primary Care Provider +1- [phone] Encounter Details Date Type Department Care Team (Late st Contact Info) Description 07/26/2012 Abstract [facility] Health Information Management [address] [place] [address] [place], Primary Care [address] [place] [address] Social History Tobacco Use Types Packs/Day Years [...] PM EDT Telemedicine Cancer Center at [address] [place], [place] [address] Ronald Mills MD [address] [place] [address] [place] [address] documented as of this encounter Visit Diagnoses Not on filedocumented in this encounter Additional Health Concerns Infection Onset Date Last Indicated Resolved Time COVID-19 03/05/2022 03/05/2022 03/15/2022 7:18 PM EDT documented as of this encounter Care Teams Finance Effectiveness Manager Relationship Specialty Start Date End Date Caitlyn Bowie MD 3400 [facility] 1 [place] [address] PCP - General Internal Medicine 05/06/21 Henry Kelly MD Pulmonary Department 175 [facility], [address] [place] [address] Physician Pulmonary Disease 09/06/17 06/22/20 documented as of this encounter
--- OUTSIDE RECORDS SUMMARY | 2025-04-10 14:09 | XMS_ITS | Encounter Summary ---
Author Organization [facility] and [facility] Address [address] [place] [address] Care Team Providers Care Dealer Sales Manager Name Role Phone Caitlyn Bowie MD Primary Care Provider +1- [phone] Encounter Details Date Type Department Care Team (Late st Contact Info) Description 07/28/2022 Scanned Document Onco-Oncology Program at [address] [place] [address] Norma Renee MD [address] [place] [address] 2 [place] [address] Social History Tobacco Use Types [...] PM EDT Telemedicine Cancer Center at [address] [place], [place] [address] Ronald Mills MD 240 [facility] A1 [place] [address] documented as of this encounter Visit Diagnoses Not on filedocumented in this encounter Additional Health Concerns Assessment Noted Time PHQ-9 Depression Total Score: 2 11/07/19 19 2:06 PM EDT documented as of this encounter Care Teams Dealer Sales Manager Relationship Specialty Start Date End Date Caitlyn Bowie MD [address] [address] PCP - General Internal Medicine 05/06/21 documented as of this encounter
--- OUTSIDE RECORDS SUMMARY | 2025-04-10 14:09 | XMS_ITS | Encounter Summary ---
Author Organization [facility] and [facility] Address [address] [place] [address] Care Team Providers Care Traveling Engineer Name Role Phone Caitlyn Bowie MD Primary Care Provider +1- [phone] Encounter Details Date Type Department Care Team (Late st Contact Info) Description 06/20/2022 Scanned Document INTERFACE DEFAULT [address] [place] [address] System, Provider Not In Social History Tobacco [...] [facility] Building [address] [place], [place] [address] Ronald Mills MD [address] [place] [address] [address] [place] [address] documented as of this encounter [...] as of this encounter Care Teams Traveling Engineer Relationship Specialty Start Date End Date Caitlyn Bowie MD [facility] [address] [address] PCP - General Internal Medicine 05/06/21 documented as of this encounter
--- OUTSIDE RECORDS SUMMARY | 2025-04-10 14:09 | XMS_ITS | Encounter Summary ---
Author Organization [facility] and [facility] Address [address] [place] [address] Care Team Providers Care Supervisor Coremaker Name Role Phone Caitlyn Bowie MD Primary Care Provider +1- [phone] Encounter Details Date Type Department Care Team (Late st Contact Info) Description 06/21/2022 Scanned Document INTERFACE DEFAULT [address] [place] [address] System, Provider Not In Social History Tobacco [...] [facility] 240 [facility] Building [address] [place], [place] [address] Ronald Mills MD [address] [place] [address] [address] [place] [address] documented as of this encounter [...] as of this encounter Care Teams Supervisor Coremaker Relationship Specialty Start Date End Date Caitlyn Bowie MD [address] [address] PCP - General Internal Medicine 05/06/21 documented as of this encounter
--- OUTSIDE RECORDS SUMMARY | 2025-04-10 14:09 | XMS_ITS | Encounter Summary ---
Author Organization [facility] and [facility] Address [address] [place] [address] Care Team Providers Care Concert Promoter Name Role Phone Caitlyn Bowie MD Primary Care Provider +1- [phone] Encounter Details Date Type Department Care Team (Late st Contact Info) Description 07/01/2019 Scanned Document Onco-Oncology Program at [address] [place] [address] Norma Renee MD [address] [place] [address] 2 [place] [phone] Social History Tobacco Use Types Packs/Day Years [...] PM EDT Telemedicine Cancer Center at [address] [place], [place] [address] Ronald Mills MD 240 [facility] A1 [place] [address] documented as of this encounter Visit Diagnoses Not on filedocumented in this encounter Additional Health Concerns Infection Onset Date Last Indicated Resolved Time COVID-19 03/05/2022 03/05/2022 03/15/2022 7:18 PM EDT Assessment Noted Time PHQ-9 Depression Total Score: 2 11/07/19 19 2:06 PM EDT documented as of this encounter Care Teams Concert Promoter Relationship Specialty Start Date End Date Caitlyn Bowie MD 3400 [facility] 1 [place] [address] PCP - General Internal Medicine 05/06/21 Henry Kelly MD Pulmonary Department 175 [facility], [address] [place] [address] Physician Pulmonary Disease 09/06/17 06/22/20 documented as of this encounter
--- OUTSIDE RECORDS SUMMARY | 2025-04-10 14:09 | XMS_ITS | Encounter Summary ---
Author Organization [facility] and [facility] Address 20 [place] [address] Care Team Providers Care Sales Project Administrator Name Role Phone Caitlyn Bowie MD Primary Care Provider +1- [phone] Encounter Details Date Type Department Care Team (Late st Contact Info) Description 08/29/2019 Scanned Document Cancer Center at [address] [address] External, Provider Social History Tobacco Use Types [...] Center at [facility] 240 [facility] Building [address] [place], [place] [address] Ronald Mills MD [address] [place] [address] [address]1 [place] [address] documented as of this encounter [...] as of this encounter Care Teams Sales Project Administrator Relationship Specialty Start Date End Date Caitlyn Bowie MD 3400 [facility] 1 [place] [address] PCP - General Internal Medicine 05/06/21 Henry Kelly MD Pulmonary Department 175 [facility], [address] [place] [address] Physician Pulmonary Disease 09/06/17 06/22/20 documented as of this encounter
--- OUTSIDE RECORDS SUMMARY | 2025-04-10 14:09 | XMS_ITS | Encounter Summary ---
Author Organization [facility] Address [address] [place] [address] Phone Care Team Providers Care Cnc Machinist Name Role Phone Caitlyn Bowie MD Primary Care Provider +1- [phone] Encounter Details Date Type Department Care Team (Late st Contact Info) Description 10/10/2024 Documentation Only [facility] [address] [place] [address] [place] [address] [place] [address] Social History Tobacco Use Types [...] Visit [facility] [address] [place] [address] Rubén Ashraf MD [address] [place] [address] [place] [address] documented as of this encounter Visit Diagnoses Not on filedocumented in this encounter Care Teams Cnc Machinist Relationship Specialty Start Date End Date Caitlyn Bowie MD 3400 [place], [place] PCP - General Internal Medicine 09/24/24 documented as of this encounter
--- OUTSIDE RECORDS SUMMARY | 2025-04-10 14:09 | XMS_ITS | Encounter Summary ---
Author Organization [facility] and [facility] Address [address] [place] [address] Care Team Providers Care Boat Painter Name Role Phone Caitlyn Bowie MD Primary Care Provider +1- [phone] Encounter Details Date Type Department Care Team (Late st Contact Info) Description 07/06/2021 Scanned Document INTERFACE DEFAULT [address] [place] [address] System, Provider Not In Social History Tobacco [...] [facility] Building [address] [place] [address] Ronald Mills MD [address] [place] [address] [address]1 [place] [address] documented as of this encounter Visit Diagnoses Not on filedocumented in this encounter Additional Health Concerns Infection Onset Date Last Indicated Resolved Time COVID-19 03/05/2022 03/05/2022 03/15/2022 7:18 PM EDT Assessment Noted Time PHQ-9 Depression Total Score: 2 11/07/19 19 2:06 PM EDT documented as of this encounter Care Teams Boat Painter Relationship Specialty Start Date End Date Caitlyn Bowie MD [address] [address] PCP - General Internal Medicine 05/06/21 documented as of this encounter
--- OUTSIDE RECORDS SUMMARY | 2025-04-10 14:09 | XMS_ITS | Encounter Summary ---
Author Organization [facility] Address [address] [place] [address] Care Team Providers Care Manager Functional Name Role Phone Caitlyn Bowie MD Primary Care Provider +1- [phone] Encounter Details Date Type Department Care Team (Late st Contact Info) Description 07/07/2021 Scanned Document INTERFACE DEFAULT [address] [place] [address] System, Provider Not In Social History Tobacco [...] [facility] 240 [facility] Building [address] [place] [address] Ronald Mills MD [address] [place] [address] [address]1 [place] [address] documented as of this encounter Visit Diagnoses Not on filedocumented in this encounter Additional Health Concerns Infection Onset Date Last Indicated Resolved Time COVID-19 03/05/2022 03/05/2022 03/15/2022 7:18 PM EDT Assessment Noted Time PHQ-9 Depression Total Score: 2 11/07/19 19 2:06 PM EDT documented as of this encounter Care Teams Manager Functional Relationship Specialty Start Date End Date Caitlyn Bowie MD [address] [address] PCP - General Internal Medicine 05/06/21 documented as of this encounter
--- OUTSIDE RECORDS SUMMARY | 2025-04-10 14:09 | XMS_ITS | Encounter Summary ---
Author Organization [facility] and [facility] Address 20 [place] [address] Care Team Providers Care Engineer First Assistant Name Role Phone Caitlyn Bowie MD Primary Care Provider +1- [phone] Encounter Details Date Type Department Care Team (Late st Contact Info) Description 06/21/2012 Abstract Head & Neck Cancers Program at [address] [address] Mikel Lloyd MD [address] [place] [phone] (Fax) Social History Tobacco Use Types Packs/Day [...] [facility] 240 [facility] Building [address] [place] [address] Ronald Mills MD 240 [facility] Max [address]1 [place] [address] documented as of this encounter Visit Diagnoses Not on filedocumented in this encounter Additional Health Concerns Infection Onset Date Last Indicated Resolved Time COVID-19 03/05/2022 03/05/2022 03/15/2022 7:18 PM EDT documented as of this encounter Care Teams Engineer First Assistant Relationship Specialty Start Date End Date Caitlyn Bowie MD 3400 [facility] 1 [place] [address] PCP - General Internal Medicine 05/06/21 Henry Kelly MD Pulmonary Department [address] [place] [address], [address] [place] [address] Physician Pulmonary Disease 09/06/17 06/22/20 documented as of this encounter
--- OUTSIDE RECORDS SUMMARY | 2025-04-10 14:09 | XMS_ITS | Encounter Summary ---
Author Organization [facility] and [facility] Address [address] [place] [address] Care Team Providers Care Cinetechnician Name Role Phone Caitlyn Bowie MD Primary Care Provider +1- [phone] Encounter Details Date Type Department Care Team (Late st Contact Info) Description 05/17/2023 Scanned Document INTERFACE DEFAULT [address] [place] [address] System, Provider Not In Social History Tobacco [...] [facility] Building [address] [place], [place] [address] Ronald Mills MD [address] [place] [address] [address]1 [place] [address] documented as of this encounter [...] documented as of this encounter Care Teams Cinetechnician Relationship Specialty Start Date End Date Caitlyn Bowie MD [address] [address] PCP - General Internal Medicine 05/06/21 documented as of this encounter
--- OUTSIDE RECORDS SUMMARY | 2025-04-10 14:09 | XMS_ITS | Encounter Summary ---
Author Organization [facility] Address 20 [place] [address] Care Team Providers Care Linux Kernel Developer Name Role Phone Caitlyn Bowie MD Primary Care Provider +1- [phone] Encounter Details Date Type Department Care Team (Late st Contact Info) Description 01/31/2023 Abstract [facility] 35 [facility] [place] [address] Shilpi Romero, AVELINO Social History Tobacco Use [...] [facility] at [facility] 240 [facility] Building [address] [place] [address] Ronald Mills MD [address] [place] [address] [address]1 [place] [address] documented as of this encounter Visit Diagnoses Not on filedocumented in this encounter Additional Health Concerns Assessment Noted Time PHQ-9 Depression Total Score: 2 11/07/19 19 2:06 PM EDT documented as of this encounter Care Teams Linux Kernel Developer Relationship Specialty Start Date End Date Caitlyn Bowie MD [address] [address] PCP - General Internal Medicine 05/06/21 documented as of this encounter
--- OUTSIDE RECORDS SUMMARY | 2025-04-10 14:09 | XMS_ITS | Encounter Summary ---
Author Organization [facility] Address [address] [place] [address] Care Team Providers Care Mult Au Matic Operator Name Role Phone Caitlyn Bowie MD Primary Care Provider +1- [phone] Encounter Details Date Type Department Care Team (Late st Contact Info) Description 08/16/2012 Abstract [facility] Health Information Management [address] [place] [address] [place], Primary Care [address] [place] [address] Social History Tobacco Use Types Packs/Day Years [...] PM EDT Telemedicine Cancer Center at [address] [place], [place] [address] Ronald Mills MD [address] [facility] Max [address] [place] [address] documented as of this encounter Visit Diagnoses Not on filedocumented in this encounter Additional Health Concerns Infection Onset Date Last Indicated Resolved Time COVID-19 03/05/2022 03/05/2022 03/15/2022 7:18 PM EDT documented as of this encounter Care Teams Mult Au Matic Operator Relationship Specialty Start Date End Date Caitlyn Bowie MD 3400 [facility] 1 [place] [address] PCP - General Internal Medicine 05/06/21 Henry Kelly MD Pulmonary Department [address] [place] [address], [address] [place] [address] Physician Pulmonary Disease 09/06/17 06/22/20 documented as of this encounter
--- OUTSIDE RECORDS SUMMARY | 2025-04-10 14:09 | XMS_ITS | Encounter Summary ---
Author Organization [facility] Address [address] [place] [address] [address] [place] [address] Phone Care Team Providers Care Weigher And Crusher Name Role Phone Caitlyn Bowie MD Primary Care Provider +1- [phone] Encounter Details Date Type Department Care Team (Late st Contact Info) Description 08/30/2024 Abstract [facility] 2447 [facility] 202 [place] [address] Adalgisa Whitney MD [address] [place] [address] 202 [place] [address] Social History Tobacco Use Types [...] PM EDT Telemedicine Cancer Center at [address] [place] [address] Ronald Mills MD [address] [place] [phone] documented as of this encounter Visit Diagnoses Not on filedocumented in this encounter Additional Health Concerns Assessment Noted Time PHQ-9 Depression Total Score: 2 11/07/19 19 2:06 PM EDT documented as of this encounter Care Teams Weigher And Crusher Relationship Specialty Start Date End Date Caitlyn Bowie MD [address] [address] PCP - General Internal Medicine 05/06/21 documented as of this encounter
--- OUTSIDE RECORDS SUMMARY | 2025-04-10 14:09 | XMS_ITS | Encounter Summary ---
Author Organization [facility] and [facility] Address [address] [place] [address] Care Team Providers Care Paint Booth Operator Name Role Phone Caitlyn Bowie MD Primary Care Provider +1- [phone] Encounter Details Date Type Department Care Team (Late st Contact Info) Description 08/29/2019 Scanned Document Cancer Center at [address] [address] External, Provider Social History Tobacco Use Types [...] Telemedicine Cancer Center at [facility] 240 [facility] Building [address] [place], [place] [id number] Ronald Mills MD [address] [place] [address] [address] [place] [address] documented as of this encounter [...] as of this encounter Care Teams Paint Booth Operator Relationship Specialty Start Date End Date Caitlyn Bowie MD 3400 [facility] 1 [place] [address] PCP - General Internal Medicine 05/06/21 Henry Kelly MD Pulmonary Department 175 [facility], [address] [place] [address] Physician Pulmonary Disease 09/06/17 06/22/20 documented as of this encounter
--- OUTSIDE RECORDS SUMMARY | 2025-04-10 14:09 | XMS_ITS | Encounter Summary ---
Author Organization [facility] and [facility] Address [address] [place] [address] Care Team Providers Care Admiralty Lawyer Name Role Phone Caitlyn Bowie MD Primary Care Provider +1- [phone] Encounter Details Date Type Department Care Team (Late st Contact Info) Description 04/20/2023 Scanned Document INTERFACE DEFAULT [address] [place] [address] System, Provider Not In Social History Tobacco [...] at [facility] 240 [facility] Building [address] [place], [place] [phone] Ronald Mills MD [address] [place] [address] [address] [place] [address] documented as of this encounter [...] documented as of this encounter Care Teams Admiralty Lawyer Relationship Specialty Start Date End Date Caitlyn Bowie MD [address] [address] PCP - General Internal Medicine 05/06/21 documented as of this encounter
--- OUTSIDE RECORDS SUMMARY | 2025-04-10 14:09 | XMS_ITS | Encounter Summary ---
Author Organization [facility] and [facility] Address [address] [place] [address] Care Team Providers Care Marketing Database Analyst Name Role Phone Caitlyn Bowie MD Primary Care Provider +1- [phone] Encounter Details Date Type Department Care Team (Late st Contact Info) Description 06/27/2022 Scanned Document INTERFACE DEFAULT [address] [place] [address] System, Provider Not In Social History Tobacco [...] Cancer Center at [facility] 240 [facility] Building [address] [place], [place] [address] Ronald Mills MD [address] [place] [address] [address] [place] [address] documented as of this encounter [...] as of this encounter Care Teams Marketing Database Analyst Relationship Specialty Start Date End Date Caitlyn Bowie MD [facility] [address] [address] PCP - General Internal Medicine 05/06/21 documented as of this encounter
--- OUTSIDE RECORDS SUMMARY | 2025-04-10 14:09 | XMS_ITS | Encounter Summary ---
Author Organization [facility] and [facility] Address [address] [place] [address] Care Team Providers Care Back Stayer Name Role Phone Caitlyn Bowie MD Primary Care Provider +1- [phone] Encounter Details Date Type Department Care Team (Late st Contact Info) Description 06/27/2019 Scanned Document Onco-Oncology Program at [address] [place] [address] Norma Renee MD [address] [place] [address] 2 [place] [address] Social History Tobacco Use Types [...] PM EDT Telemedicine Cancer Center at [address] [place], [place] [address] Ronald Mills MD 240 [facility] [address]1 [place] [address] documented as of this encounter Visit Diagnoses Not on filedocumented in this encounter Additional Health Concerns Infection Onset Date Last Indicated Resolved Time COVID-19 03/05/2022 03/05/2022 03/15/2022 7:18 PM EDT Assessment Noted Time PHQ-9 Depression Total Score: 2 11/07/19 19 2:06 PM EDT documented as of this encounter Care Teams Back Stayer Relationship Specialty Start Date End Date Caitlyn Bowie MD 3400 [facility] 1 [place] [address] PCP - General Internal Medicine 05/06/21 Henry Kelly MD Pulmonary Department 175 [facility], [address] [place] [address] Physician Pulmonary Disease 09/06/17 06/22/20 documented as of this encounter
--- OUTSIDE RECORDS SUMMARY | 2025-04-10 14:09 | XMS_ITS | Encounter Summary ---
Author Organization [facility] and [facility] Address [address] [place] [address] Care Team Providers Care Pastoral Ministries Professor Name Role Phone Caitlyn Bowie MD Primary Care Provider +1- [phone] Encounter Details Date Type Department Care Team (Late st Contact Info) Description 05/16/2023 Scanned Document INTERFACE DEFAULT [address] [place] [address] System, Provider Not In Social History Tobacco [...] Cancer Center at [facility] 240 [facility] Building [address] [place], [place] [address] Ronald Mills MD [address] [place] [address] [address] [place] [address] documented as of this encounter [...] as of this encounter Care Teams Pastoral Ministries Professor Relationship Specialty Start Date End Date Caitlyn Bowie MD [address] [address] PCP - General Internal Medicine 05/06/21 documented as of this encounter
--- OUTSIDE RECORDS SUMMARY | 2025-04-10 14:09 | XMS_ITS | Encounter Summary ---
Author Organization [facility] and [facility] Address [address] [place] [address] Care Team Providers Care Bag Repairer Name Role Phone Caitlyn Bowie MD Primary Care Provider +1- [phone] Encounter Details Date Type Department Care Team (Late st Contact Info) Description 06/24/2022 Scanned Document INTERFACE DEFAULT [address] [place] [address] System, Provider Not In Social History Tobacco [...] Cancer Center at [facility] 240 [facility] Building [address] [place], [place] [address] Ronald Mills MD [address] [place] [address] [address] [place] [address] documented as of this encounter [...] as of this encounter Care Teams Bag Repairer Relationship Specialty Start Date End Date Caitlyn Bowie MD [address] [address] PCP - General Internal Medicine 05/06/21 documented as of this encounter
--- OUTSIDE RECORDS SUMMARY | 2025-04-10 14:09 | XMS_ITS | Encounter Summary ---
Author Organization [facility] Address [address] [place] [address] Care Team Providers Care Logistics Solution Manager Name Role Phone Pcp, No Primary Care Provider Brennan Mario MD Primary Care Provider [phone] Caitlyn Bowie MD Primary Care Provider +1- [phone] Encounter Details Date Type Department Care Team (Late st Contact Info) Description 01/04/2022 Scanned Document [facility] Neurology Ophthalmology [address] [address] Yary Whitten DO [address] [place] [address] Social History Tobacco Use Types Packs/Day [...] on filedocumented in this encounter Care Teams Logistics Solution Manager Relationship Specialty Start Date End Date Pcp, No PCP - General General Medicine 10/04/21 07/18/22 Brennan Burnett MD [address] [place] [address] PCP - General 07/19/22 03/19/23 Caitlyn Bowie MD 3400 [place] [address] PCP - General Internal Medicine 03/20/23 documented as of this encounter
--- OUTSIDE RECORDS SUMMARY | 2025-04-10 14:10 | XMS_ITS | Encounter Summary ---
Author Organization [facility] and [facility] Address [address] [place] [address] Care Team Providers Care Head Porter Name Role Phone Caitlyn Bowie MD Primary Care Provider +1- [phone] Encounter Details Date Type Department Care Team (Late st Contact Info) Description 04/28/2022 Scanned Document INTERFACE DEFAULT [address] [place] [address] System, Provider Not In Social History Tobacco [...] Center at [facility] 240 [facility] Building [address] [place], [place] [address] Ronald iMlls MD [address] [place] [address] [address] [place] [address] documented as of this encounter [...] as of this encounter Care Teams Head Porter Relationship Specialty Start Date End Date Caitlyn Bowie MD [facility] [address] [address] PCP - General Internal Medicine 05/06/21 documented as of this encounter
--- OUTSIDE RECORDS SUMMARY | 2025-04-10 14:10 | XMS_ITS | Encounter Summary ---
Author Organization [facility] and [facility] Address [address] [place] [address] Care Team Providers Care Assistant Site Manager Name Role Phone Caitlyn Bowie MD Primary Care Provider +1- [phone] Encounter Details Date Type Department Care Team (Late st Contact Info) Description 09/09/2015 Scanned Document [facility] Health Information Management [address] [place] [address] External, Provider Social History Tobacco Use Types [...] – [facility] 240 [facility] Building [address] [place], [place] [address] Ronald Mills MD 240 [facility] Max [address] [place] [address] documented as of this encounter Procedures Procedure Name Priority Date/Time Associated Diagnosis Comments LAB SCAN Routine 09/09/2015 documented in this encounter Results * Lab Scan (09/09/2015) Blood specimen (specimen) us Provider External LAB BLOOD ORDERABLES Final Res ult [facility] documented in this encounter Visit Diagnoses Not on filedocumented in this encounter Additional Health Concerns Infection Onset Date Last Indicated Resolved Time COVID-19 03/05/2022 03/05/2022 03/15/2022 7:18 PM EDT documented as of this encounter Care Teams Assistant Site Manager Relationship Specialty Start Date End Date Caitlyn Bowie MD 3400 [facility] 1 [place] [address] PCP - General Internal Medicine 05/06/21 Henry Kelly MD Pulmonary Department 175 [facility], [address] [place] [address] Physician Pulmonary Disease 09/06/17 06/22/20 documented as of this encounter
--- OUTSIDE RECORDS SUMMARY | 2025-04-10 14:10 | XMS_ITS | Encounter Summary ---
Author Organization [facility] Address [address] [place] [address] Care Team Providers Care Training And Documentation Specialist Name Role Phone Caitlyn Bowie MD Primary Care Provider +1- [phone] Encounter Details Date Type Department Care Team (Late st Contact Info) Description 02/21/2017 Scanned Document [facility] Health Information Management [address] [place] [address] External, Provider Social History Tobacco Use Types [...] [facility] 240 [facility] Building [address] [place], [place] [address] Ronald Mills MD 240 [facility] [address] [place] [address] documented as of this [...] documented as of this encounter Care Teams Training And Documentation Specialist Relationship Specialty Start Date End Date Caitlyn Bowie MD 3400 [facility] Max 1 [place] [address] PCP - General Internal Medicine 05/06/21 Henry Kelly MD Pulmonary Department 175 [facility], [address] [place] [address] Physician Pulmonary Disease 09/06/17 06/22/20 documented as of this encounter
--- OUTSIDE RECORDS SUMMARY | 2025-04-10 14:10 | XMS_ITS | Encounter Summary ---
Author Organization [facility] Address [address] [place] [id number] Care Team Providers Care Tester Regulator Name Role Phone Caitlyn Bwoie MD Primary Care Provider +1- [phone] Reason for Visit * Reason Onset Date Comments Medical Complaint 04/08/2025 Encounter Details Date Type Department Care Team ([facility] st Contact Info) Description 04/08/2025 Telephone [facility] Neurology Ophthalmology [address] [address] Yary Whitten DO [address] [place] [phone] Medical Complaint Social History Tobacco Use Types [...] Telephone Encounter - Mariana Vincent LPN - 04/08/2025 10:47 AM EDT Spoke with patient and informed that I was following up on a recent conversation. Informed patient that she called the office on 03/11/25 with medical concerns. Informed that Dr. Whitten replied on 03/12/25 with recommendations. Nurse called on 03/12/25 and left vmail message. No return phone call. Second call on 03/13/25 and patient was informed at that time of provider recommendations. Patient stated that she did not want to go to another ER in [facility] due to the treatment. Patient stated that she will go to [facility] urgent care in [place]. Patient was asked why didn't she go and she said she was asymptomatic at the time of the call and did not want to look foolish and not taken seriously. 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 Patient stated that these sx happen every so often and are frightening and her mom had an aneurysm that burst in her brain. Informed patient that provider really wanted her to go to the ED at that time. Asked patient what were her sx today and patient stated she is not having any symptoms at this time. Informed patient going forward that if sx persist or reappear to please go to the ER for further evaluation. Patient verbalized understanding. documented in this encounter Plan of Treatment Not on file documented as of this encounter Visit Diagnoses Not on filedocumented in this encounter Care Teams Tester Regulator Relationship Specialty Start Date End Date Caitlyn Bowie MD [address] [place] [address] PCP - General Internal Medicine 03/20/23 documented as of this encounter
--- OUTSIDE RECORDS SUMMARY | 2025-04-10 14:10 | XMS_ITS | Encounter Summary ---
Author Organization [facility] and [facility] Address [address] [place] [address] Care Team Providers Care Multi Operation Forming Machine Setter Name Role Phone Caitlyn Bowie MD Primary Care Provider +1- [phone] Encounter Details Date Type Department Care Team (Late st Contact Info) Description 09/09/2015 Scanned Document [facility] Health Information Management [address] [place] [address] External, Provider Social History Tobacco Use Types [...] Cancer Center at [facility] 240 [facility] Building [address] [place], [place] [phone] Ronald Mills MD 240 [facility] [address] [place] [address] documented as of this encounter Procedures Procedure Name Priority Date/Time Associated Diagnosis Comments LAB SCAN Routine 09/09/2015 documented in this encounter Results * Lab Scan (09/09/2015) Blood specimen (specimen) us Provider External LAB BLOOD ORDERABLES Final Res ult Performing Organization Address City/State/[facility] Co de Phone Number [facility] documented in this encounter Visit Diagnoses Not on filedocumented in this encounter Additional Health Concerns Infection Onset Date Last Indicated Resolved Time COVID-19 03/05/2022 03/05/2022 03/15/2022 7:18 PM EDT documented as of this encounter Care Teams Multi Operation Forming Machine Setter Relationship Specialty Start Date End Date Caitlyn Bowie MD 3400 [facility] 1 [place] [address] PCP - General Internal Medicine 05/06/21 Henry Kelly MD Pulmonary Department 175 [facility], [address] [place] [address] Physician Pulmonary Disease 09/06/17 06/22/20 documented as of this encounter
--- OUTSIDE RECORDS SUMMARY | 2025-04-10 14:10 | XMS_ITS | Encounter Summary ---
Author Organization [facility] and [facility] Address [address] [place] [address] Care Team Providers Care Bread Icer Name Role Phone Caitlyn Bowie MD Primary Care Provider +1- [phone] Encounter Details Date Type Department Care Team (Late st Contact Info) Description 04/19/2022 Scanned Document INTERFACE DEFAULT [address] [place] [address] System, Provider Not In Social History Tobacco [...] Cancer Center at [facility] 240 [facility] Building [address] [place], [place] [address] Ronald Mills MD [address] [place] [address] [address] [place] [address] documented as of this encounter [...] as of this encounter Care Teams Bread Icer Relationship Specialty Start Date End Date Caitlyn Bowie MD [address] [address] PCP - General Internal Medicine 05/06/21 documented as of this encounter
--- OUTSIDE RECORDS SUMMARY | 2025-04-10 14:10 | XMS_ITS | Encounter Summary ---
Author Organization [facility] and [facility] Address [address] [place] [address] Care Team Providers Care Master Cook Name Role Phone Caitlyn Bowie MD Primary Care Provider +1- [phone] Encounter Details Date Type Department Care Team (Late st Contact Info) Description 04/26/2017 Scanned Document Cardiovascular Medicine at [address] [place] [address] System, Provider Not In Social History Tobacco [...] Center at [facility] [address] [facility] Building [address] [place], [place] [address] Ronald Mills MD 240 [facility] A1 [place] [address] documented as of this encounter [...] Caitlyn Bowie MD 3400 [facility] 1 [place] [address] PCP - General Internal Medicine 05/06/21 Henry Kelly MD Pulmonary Department 175 [facility], [address] [place] [address] Physician Pulmonary Disease 09/06/17 06/22/20 documented as of this encounter
--- OUTSIDE RECORDS SUMMARY | 2025-04-10 14:10 | XMS_ITS | Encounter Summary ---
Author Organization [facility] and [facility] Address [address] [place] [address] Care Team Providers Care Rubber And Plastics Worker Name Role Phone Caitlyn Bowie MD Primary Care Provider +1- [phone] Encounter Details Date Type Department Care Team (Late st Contact Info) Description 04/18/2022 Scanned Document INTERFACE DEFAULT [address] [place] [address] System, Provider Not In Social History Tobacco [...] Cancer Center at [facility] 240 [facility] Building [address] [place] [address] Ronald Mills MD [address] [place] [address] [address] [place] [address] documented as of this encounter Visit Diagnoses Not on filedocumented in this encounter Additional Health Concerns Assessment Noted Time PHQ-9 Depression Total Score: 2 11/07/19 19 2:06 PM EDT documented as of this encounter Care Teams Rubber And Plastics Worker Relationship Specialty Start Date End Date Caitlyn Bowie MD [address] [address] PCP - General Internal Medicine 05/06/21 documented as of this encounter
--- OUTSIDE RECORDS SUMMARY | 2025-04-10 14:10 | XMS_ITS | Encounter Summary ---
Author Organization [facility] and [facility] Address [address] [place] [address] Care Team Providers Care Letter Of Credit Document Examiner Name Role Phone Caitlyn Bowie MD Primary Care Provider +1- [phone] Encounter Details Date Type Department Care Team (Late st Contact Info) Description 05/10/2022 Scanned Document Cardiovascular Medicine at [address] [place], [place] [address] Norma Renee MD [address] [place] [phone] Social History Tobacco Use Types Packs/Day Years [...] PM EDT Telemedicine Cancer Center at [address] [place], [place] [address] Ronald Mills MD [address] [place] [address] [address] [place] [address] documented as of this encounter Visit Diagnoses Not on filedocumented in this encounter Additional Health Concerns Assessment Noted Time PHQ-9 Depression Total Score: 2 11/07/19 19 2:06 PM EDT documented as of this encounter Care Teams Letter Of Credit Document Examiner Relationship Specialty Start Date End Date Caitlyn Bowie MD [address] [address] PCP - General Internal Medicine 05/06/21 documented as of this encounter
--- OUTSIDE RECORDS SUMMARY | 2025-04-10 14:10 | XMS_ITS | Encounter Summary ---
Author Organization [facility] and [facility] Address [address] [place] [address] Care Team Providers Care Sample Display Preparer Name Role Phone Caitlyn Bowie MD Primary Care Provider +1- [phone] Encounter Details Date Type Department Care Team (Late st Contact Info) Description 05/04/2022 Scanned Document INTERFACE DEFAULT [address] [place] [address] System, Provider Not In Social History Tobacco [...] at [facility] 240 [facility] Building [address] [place] [address] Ronald Mills MD [address] [place] [address] [address] [place] [address] documented as of this encounter Visit Diagnoses Not on filedocumented in this encounter Additional Health Concerns Assessment Noted Time PHQ-9 Depression Total Score: 2 11/07/19 19 2:06 PM EDT documented as of this encounter Care Teams Sample Display Preparer Relationship Specialty Start Date End Date Caitlyn Bowie MD [address] [address] PCP - General Internal Medicine 05/06/21 documented as of this encounter
--- OUTSIDE RECORDS SUMMARY | 2025-04-10 14:10 | XMS_ITS | Encounter Summary ---
Author Organization [facility] and [facility] Address [address] [place] [address] Care Team Providers Care Scheduling Agent Name Role Phone Caitlyn Bowie MD Primary Care Provider +1- [phone] Encounter Details Date Type Department Care Team (Late st Contact Info) Description 05/02/2022 Scanned Document INTERFACE DEFAULT [address] [place] [address] System, Provider Not In Social History Tobacco [...] Center, [facility] [address] [facility] Building [address] [place] [address] Ronald Mills MD [address] [place] [address] [address] [place] [address] documented as of this encounter [...] as of this encounter Care Teams Scheduling Agent Relationship Specialty Start Date End Date Caitlyn Bowie MD [address] [address] PCP - General Internal Medicine 05/06/21 documented as of this encounter
--- OUTSIDE RECORDS SUMMARY | 2025-04-10 14:10 | XMS_ITS | Encounter Summary ---
Author Organization [facility] Address [address] [place] [address] Care Team Providers Care Seed Pelleter Name Role Phone Caitlyn Bowie MD Primary Care Provider +1- [phone] Encounter Details Date Type Department Care Team (Late st Contact Info) Description 03/01/2017 Scanned Document Onco-Oncology Program at [address] [place] [address] Norma Renee MD [address] [place] [address] 2 [place] [phone] Social History Tobacco Use Types Packs/Day Years [...] PM EDT Tele[facility]icine Cancer Center at [address] [place] [address] Ronald Mills MD 240 [facility] A1 [place] [address] documented as of this encounter Visit Diagnoses Not on filedocumented in this encounter Additional Health Concerns Infection Onset Date Last Indicated Resolved Time COVID-19 03/05/2022 03/05/2022 03/15/2022 7:18 PM EDT documented as of this encounter Care Teams Seed Pelleter Relationship Specialty Start Date End Date Caitlyn Bowie MD 34[address] [facility] [address] 1 [place] [address] PCP - General Internal Medicine 05/06/21 Henry Kelly MD Pulmonary Department 175 [facility], [address] [place] [address] Physician Pulmonary Disease 09/06/17 06/22/20 documented as of this encounter
--- OUTSIDE RECORDS SUMMARY | 2025-04-10 14:10 | XMS_ITS | Encounter Summary ---
Author Organization [facility] Address 20 [place] [address] Care Team Providers Care Foreclosure Paralegal Name Role Phone Caitlyn Bowie MD Primary Care Provider +1- [phone] Encounter Details Date Type Department Care Team (Late st Contact Info) Description 12/31/2015 Scanned Document Electrophysiology & Cardiac Arrhythmia Program [address] [place] [phone] External, Provider Social History Tobacco Use Types [...] – [facility] 240 [facility] [address] [place], [place] [id number] Ronald Milsl MD [address] [place] [address] [address] [place] [address] documented as of this encounter Procedures Procedure Name Priority Date/Time Associated Diagnosis Comments LAB SCAN Routine 12/31/2015 documented in this encounter Results * Lab Scan (12/31/2015) Blood specimen (specimen) us Provider External LAB BLOOD ORDERABLES Final Res ult Performing Organization Address City/State/[facility] Co de Phone Number [facility] documented in this encounter Visit Diagnoses Not on filedocumented in this encounter Additional Health Concerns Infection Onset Date Last Indicated Resolved Time COVID-19 03/05/2022 03/05/2022 03/15/2022 7:18 PM EDT documented as of this encounter Care Teams Foreclosure Paralegal Relationship Specialty Start Date End Date Caitlyn Bowie MD 3400 [facility] 1 [place] [address] PCP - General Internal Medicine 05/06/21 Henry Kelly MD Pulmonary Department 175 [facility], [address] [place] [address] Physician Pulmonary Disease 09/06/17 06/22/20 documented as of this encounter
--- OUTSIDE RECORDS SUMMARY | 2025-04-10 14:10 | XMS_ITS | Encounter Summary ---
Author Organization [facility] Address [address] [place] [address] Care Team Providers Care Quality Consultant Name Role Phone Caitlyn Bowie MD Primary Care Provider +1- [phone] Encounter Details Date Type Department Care Team (Late st Contact Info) Description 10/23/[address] [facility] Health Information Management [address] [place] [address] External, Provider Social History Tobacco Use Types [...] [facility] 240 [facility] Building [address] [place], [place] [phone] Ronald Mills MD [address] [place] [address] [address] [place] [address] documented as of this encounter Visit Diagnoses Not on filedocumented in this encounter Additional Health Concerns Infection Onset Date Last Indicated Resolved Time COVID-19 03/05/2022 03/05/2022 03/15/2022 7:18 PM EDT documented as of this encounter Care Teams Quality Consultant Relationship Specialty Start Date End Date Caitlyn Bowie MD 3400 [facility] 1 [place] [address] PCP - General Internal Medicine 05/06/21 Henry Kelly MD Pulmonary Department 175 [facility], [address] [place] [address] Physician Pulmonary Disease 09/06/17 06/22/20 documented as of this encounter
--- OUTSIDE RECORDS SUMMARY | 2025-04-10 14:10 | XMS_ITS | Patient Health Record ---
Author Organization [facility] Address [address] [facility] [address] [place] [address] Care Team Providers Care Sea Captain Name Role Phone EVELIN RAMSAY Primary Care Provider Yenny Hou Unavailable [phone] Allergies Allergen (clinical drug ingredient) Drug/Non Drug [...] 11:35:04 PM Interpretation: Performing Lab:[facility], [address] [facility], Phone - [phone], Director - Arely Notes/Report: Urine Culture, Routine-[id number] Reviewed date:05/04/2024 11:35:22 PM Interpretation: Performing Lab:[facility], [address] [facility], [place], Phone - [phone], Director - Arely Notes/Report: Urine Culture, Routine Final report Result 1 Culture shows less than 10,000 colony forming units of bacteria per milliliter of urine. This colony count is not generally considered to be clinically significant. Urinalysis, Complete-[id number] Reviewed date:05/04/2024 11:35:42 PM Interpretation: Performing Lab:[facility], [address] [facility] [address], [place], Phone - [phone], Director - Arely Notes/Report: Specific [place] 1.009 1.005-1.030 pH 6.5 5.0-7.5 Urine-Color [...] 25MCG 1 ORAL daily; Durati on: -3 [facility] 06/10/2014 Active ZyrTEC Allergy 10MG 1 ORAL [...] 50MG 1 ORAL at bedtime; Duration: -3 [facility] 06/10/2014 Active Meclizine HCl 25 MG 1 tablet as needed Orally [facility] 06/10/2014 Active Albuterol Sulfate (2.5 MG/3ML)0.083% Inhalation 4 x a day prn 06/10/2014 Active Valium 5MG 1 tablet as needed O RAL at bedtime, 1/2 tab prn during the day [facility] 06/10/2014 Active Social History Tobacco Use: Social [...] Status Risk Notes Problem Postmenopausal atrophic vaginitis (95902065) Postmenopausal atrophic vaginitis (N95.2) Active confirmed Problem Age-related osteoporosis (049188997) Age-related osteoporosis without current pathological fracture (M81.0) Active confirmed Problem Urgent desire to urinate (33096404) Urgency of urination (R39.15) Active confirmed 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 Problem Chronic systolic heart failure (204859524) Chronic systolic (congestive) heart failure (I50.22) Active confirmed Problem Chronic obstructive pulmonary disease (74740698) Chronic obstructive pulmonary disease, unspecified (J44.9) Active confirmed Problem Functional urinary incontinence (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) Functional 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) Active confirmed Problem Personal history of primary malignant neoplasm of bronchus (509386002) 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) Active confirmed Vital Signs Temperature 97.7 degrees Fahrenheit 07/18/2024 Blood pressure diastolic 62 mm Hg 07/18/2024 Height 63 in 07/18/2024 Blood pressure systolic 102 mm Hg 07/18/2024 Weight 126 lbs 07/18/2024 BMI 22.32 kg/m2 07/18/2024 Encounters Encounter Location Date Provider Diagnosis Total [address] [address] 05/03/2024 Yennydorothy Elizalde Urgency of urination R39.15 and Abscess of vulva N76.[address] [address] 05/10/2024 Yenny Elizalde Abscess of vulva N76 .[address] [address] 05/17/2024 Yenny Elizalde Abscess of vulva N76 .[address] [address] 07/09/2024 Yenny Tonio Urgency of urination R39.15 ; Acute vaginitis N76.0 and Postmenopausal atrophic vaginitis N95.[address] [address] 07/18/2024 Yenny Elizalde Encounter for screening mammogram for malignant neoplasm of breast Z12.31 and Mastodynia N64.[address] [address] 05/10/2024 Yenny Lovettva Total [address] [address] 05/13/2024 Yenny Elizalde [facility] [address] [facility] [address] [place] [address] 06/11/2024 Yenny Elizalde Assessments Encounter Date Diagnosis [...] [facility] AND DISCUSSED THIS [...] Date MEDICARE [address] [place] NIEVES [id number] SHIRLEY CINDA Self - patient is the insured [employer] [address] [place] [address] [id number] DANIEL WATSONE Self - patient is [...]
--- OUTSIDE RECORDS SUMMARY | 2025-04-10 14:10 | XMS_ITS | Encounter Summary ---
Author Organization [facility] Address [address] [place] [address] Care Team Providers Care Apartment Leasing Consultant Name Role Phone Caitlyn Bowie MD Primary Care Provider +1- [phone] Encounter Details Date Type Department Care Team (Late st Contact Info) Description 12/06/2018 Scanned Document [facility] Health Information Management [address] [place] [address] External, Provider Social History Tobacco Use Types [...] [facility] Building [address] [place], [place] [phone] Ronald Mills MD [address] [place] [address] [address] [place] [address] documented as of this encounter [...] as of this encounter Care Teams Apartment Leasing Consultant Relationship Specialty Start Date End Date Caitlyn Bowie MD 34[address] [facility] 1 [place] [address] PCP - General Internal Medicine 05/06/21 Henry Kelly MD Pulmonary Department 175 [facility], [address] [place] [address] Physician Pulmonary Disease 09/06/17 06/22/20 documented as of this encounter
--- OUTSIDE RECORDS SUMMARY | 2025-04-10 14:10 | XMS_ITS | Encounter Summary ---
Author Organization [facility] Address [address] [place] [address] Care Team Providers Care Welt Rander Name Role Phone Caitlyn Bowie MD Primary Care Provider +1- [phone] Encounter Details Date Type Department Care Team (Late st Contact Info) Description 12/04/2018 Scanned Document [facility] Health Information Management [address] [place] [address] External, Provider Social History Tobacco Use Types [...] [facility] [address] [facility] Building [address] [place], [place] [phone] Ronald Mills MD 240 [facility] A1 [place] [address] documented as of this encounter Visit Diagnoses Not on filedocumented in this encounter Additional Health Concerns Infection Onset Date Last Indicated Resolved Time COVID-19 03/05/2022 03/05/2022 03/15/2022 7:18 PM EDT Assessment Noted Time PHQ-9 Depression Total Score: 2 11/07/19 19 2:06 PM EDT documented as of this encounter Care Teams Welt Rander Relationship Specialty Start Date End Date Caitlyn Bowie MD 3400 [facility] [address] 1 [place] [address] PCP - General Internal Medicine 05/06/21 Henry Kelly MD Pulmonary Department 175 [facility], [address] [place] [address] Physician Pulmonary Disease 09/06/17 06/22/20 documented as of this encounter
--- OUTSIDE RECORDS SUMMARY | 2025-04-10 14:10 | XMS_ITS | Encounter Summary ---
Author Organization [facility] Address [address] [place] [address] Care Team Providers Care Mobile Heavy Equipment Mechanic Name Role Phone Caitlyn Bowie MD Primary Care Provider +1- [phone] Encounter Details Date Type Department Care Team (Late st Contact Info) Description 04/22/2022 Scanned Document INTERFACE DEFAULT [address] [place] [address] System, Provider Not In Social History Tobacco [...] [facility] [address] [facility] Building [address] [place], [place] [phone] Ronald Mills MD [address] [place] [address] [address] [place] [address] documented as of this encounter [...] as of this encounter Care Teams Mobile Heavy Equipment Mechanic Relationship Specialty Start Date End Date Caitlyn Bowie MD [address] [address] PCP - General Internal Medicine 05/06/21 documented as of this encounter
--- OUTSIDE RECORDS SUMMARY | 2025-04-10 14:10 | XMS_ITS | Encounter Summary ---
Author Organization [facility] Address 20 [place] [address] Care Team Providers Care Laborer Pole Crew Name Role Phone Caitlyn Bowie MD Primary Care Provider +1- [phone] Encounter Details Date Type Department Care Team (Latest Contact Info) Description 12/25/2015 Transcribed Orders [facility] [address] [facility] [place] [address] Osmel Briscoe MD Other abnormality of red [...] 4:00 PM EDT Telemedicine Cancer Center at [address] [place], [place] [phone] Ronald Mills MD [address] [place] [address] [address] [place] [address] documented as of this encounter Results * Free kappa lambda with ratio, serum ( GH Q YH) (12/25/2015 10:09 AM EDT) Ig [place] Free Light Chain 1.84 0.33 - 1.94 mg/dL [facility] Ig Lambda Free Light Chain 1.96 0.57 - 2.63 mg/dL [facility] [place]/Lambda FLC Ratio 0.94 0.26 - 1.65 [facility] Blood specimen (specimen) 12/25/2015 10:09 AM EDT Osmel Briscoe MD LAB BLOOD ORDERABLES Final R esult Performing Organization Address [facility] Co de Phone Number [facility] [address] [place] [address] * Immunofixation, serum ( L Q YH) (12/25/2015 10:09 AM EDT) [facility] Immunofixation Electrophoresis Gel See below See Interp. [facility] Comment: INTERPRETATION: Normal immunofixation electrophoresis. No evidence of a serum monoclonal component. SIGNED BY:Keyur KAYE MD ON 12/29/2015 14:56:04 INTERPRETATION REVIEW : I have reviewed these results and agree with this interpretation. Blood specimen (specimen) 12/25/2015 10:09 AM EDT Osmel Briscoe MD LAB BLOOD ORDERABLES Final R esult Performing Organization Address [facility] Co de Phone Number [facility] [address] [place] [address] * (ABNORMAL) Protein electrophoresis, serum ( GH L YH) (12/25/2015 10:09 AM EDT) Albumin Electrophoresis 3.45(L) 3.50 - 4.70 g/dL [facility] Qqkje-9-Ejujpcfy 0.16 0.10 - 0.30 g/dL [facility] Eglok-7-Pewecjhx 0.81 0.60 - 1.00 g/dL [facility] Beta Globulin 0.86 0.70 - 1.20 g/dL [facility] Gamma Globulin 0.92 0.70 - 1.50 g/dL [facility] SPEP Interpretation See below See Interp. [facility] Comment: INTERPRETATION: No discrete abnormal [...] ORDERABLES Final R esult Performing Organization Address City/[facility] Co de Phone Number [facility] [address] [place] [address] * Reticulocytes (GH L Q YH) (12/25/2015 10:09 AM EDT) Reticulocyte Count 2.1 0.6 - 2.7 % [facility] Blood specimen (specimen) 12/25/2015 10:09 AM EDT Osmel Briscoe MD LAB BLOOD ORDERABLES Final R esult Performing Organization Address [facility] Co de Phone Number [facility] [address] [place] [address] * (ABNORMAL) Sedimentation rate (ESR) (12/25/2015 10:09 AM EDT) Sed Rate 27(H) 0 - 20 mm/hr [facility] Blood specimen (specimen) 12/25/2015 10:09 AM EDT Osmel Briscoe MD LAB BLOOD ORDERABLES Final R esult Performing Organization Address [facility] Co de Phone Number [facility] [address] [place] [address] * Ferritin (12/25/2015 10:09 AM EDT) Ferritin 68 9 - 120 ng/mL [facility] Blood specimen (specimen) 12/25/2015 10:09 AM EDT Osmel Briscoe MD LAB BLOOD ORDERABLES Final R esult Performing Organization Address [facility] Co de Phone Number [facility] [address] [place] [address] * Iron and TIBC (12/25/2015 10:09 AM EDT) Iron 110 50 - 170 ug/dL [facility] TIBC 290 250 - 450 ug/dL [facility] Iron Saturation 38 15 - 50 [facility] Blood specimen (specimen) 12/25/2015 10:09 AM EDT Osmel Briscoe MD LAB BLOOD ORDERABLES Final R esult Performing Organization Address [facility] Co de Phone Number [facility] [address] [place] [address] * Vitamin D 25 hydroxy (BH L YH) (12/25/2015 10:09 AM EDT) Vit D, 25-Hydroxy 43 20 - 50 ng/mL [facility] Comment: A serum 25(OH) vitamin [...] ORDERABLES Final R esult Performing Organization Address City/[facility]/ZIP Co de Phone Number [facility] [address] [place] [address] * TSH (BH L YH) (12/25/2015 10:09 AM EDT) TSH cancelled 0.3 - 4.2 uU/mL [facility] TSH 1.62 0.3 - 4.2 uU/mL [facility] Comment:This test is a third generation TSH assay. Blood specimen (specimen) 12/25/2015 10:09 AM EDT Osmel Briscoe MD LAB BLOOD ORDERABLES Final R esult Performing Organization Address City/[facility] Co de Phone Number [facility] [address] [place] [address] * (ABNORMAL) CBC and differential (12/25/2015 10:09 AM EDT) [facility] CBC with Differential See Below [facility] WBC 9.9 4.0 - 10.0 x 1000/uL [facility] RBC 4.0 3.8 - 5.2 M/uL [facility] Hemoglobin 13.4 12.0 - 16.0 g/dL [facility] Hematocrit 41.0 37.0 - 47.0 % [facility] MCV 101(H) 78 - 94 fL [facility] MCH 33.2(H) 27.0 - 33.0 pg [facility] MCHC 32.8(L) 33.0 - 37.0 g/dL [facility] RDW 12.5 10.8 - 14.5 % [facility] Platelets 265 150 - 350 x 1000/uL [facility] MPV 7.2 6.0 - 10.0 fL [facility] Neutrophils 82(H) 38 - 71 % [facility] Lymphocytes 7(L) 14 - 46 % [facility] Monocytes 10 2 - 15 % [facility] Eosinophils 1 0 - 5 % [facility] Basophils 0 0 - 2 % [facility] ANC (Abs Neutrophil Count) 8.1 1.0 - 9.0 x 1000/uL [facility] Absolute Lymphocyte Count 0.7 0.6 - 4.6 x 1000/uL [facility] Blood specimen (specimen) ARM NEC / Unknown 12/25/2015 10:09 AM EDT us Osmel Briscoe MD LAB BLOOD ORDERABLES Final R esult [facility] [address] [place] [address] documented in this encounter Visit Diagnoses Diagnosis Other abnormality of red blood cells- Primary Other nonspecific findings on examination of blood(790.99) Other nonspecific findings on examination of blood Localized osteoporosis of [place] Other osteoporosis SAPHO syndrome Traumatic spondylopathy Dietary iron deficiency without anemia Other disorders of iron metabolism Other and unspecified hyperlipidemia documented in this encounter Additional Health Concerns Infection Onset Date Last Indicated Resolved Time COVID-19 03/05/2022 03/05/2022 03/15/2022 7:18 PM EDT documented as of this encounter Care Teams Laborer Pole Crew Relationship Specialty Start Date End Date Caitlyn Bowie MD [facility]0 [facility] 1 [place] [address] PCP - General Internal Medicine 05/06/21 Henry Kelly MD Pulmonary Department 175 [facility], [address] [place] [address] Physician Pulmonary Disease 09/06/17 06/22/20 documented as of this encounter
--- OUTSIDE RECORDS SUMMARY | 2025-04-10 14:10 | XMS_ITS | Encounter Summary ---
Author Organization [facility] Address [address] [place] [address] Care Team Providers Care Radiation / Chemistry Technician Name Role Phone Caitlyn Bowie MD Primary Care Provider +1- [phone] Encounter Details Date Type Department Care Team (Late st Contact Info) Description 09/24/2015 Scanned Document Digestive Diseases at [address] [facility] [address] [facility] [address] [place] [address] Kevin Espinoza MD [address] [place] [address] Social History Tobacco Use Types Packs/Day [...] PM EDT Telemedicine Cancer Center at [address] [place], [place] [phone] Ronald Mills MD [address] [place] [address] [address] [place] [address] documented as of this encounter Visit Diagnoses Not on filedocumented in this encounter Additional Health Concerns Infection Onset Date Last Indicated Resolved Time COVID-19 03/05/2022 03/05/2022 03/15/2022 7:18 PM EDT documented as of this encounter Care Teams Radiation / Chemistry Technician Relationship Specialty Start Date End Date Caitlyn Bowie MD [address] [facility] 1 [place] [address] PCP - General Internal Medicine 05/06/21 Henry Kelly MD Pulmonary Department 175 [facility], [address] [place] [address] Physician Pulmonary Disease 09/06/17 06/22/20 documented as of this encounter
--- OUTSIDE RECORDS SUMMARY | 2025-04-10 14:10 | XMS_ITS | Encounter Summary ---
Author Organization [facility] Address [address] [place] [address] Care Team Providers Care Bottom Turning Lathe Turner Name Role Phone Caitlyn Bowie MD Primary Care Provider +1- [phone] Encounter Details Date Type Department Care Team (Late st Contact Info) Description 04/16/2022 Scanned Document INTERFACE DEFAULT [address] [place] [address] System, Provider Not In Social History Tobacco [...] at [facility] 240 [facility] Building [address] [place], [place] [phone] Ronald Mills MD [address] [place] [address] [address] [place] [address] documented as of this encounter [...] as of this encounter Care Teams Bottom Turning Lathe Turner Relationship Specialty Start Date End Date Caitlyn Bowie MD [address] [address] PCP - General Internal Medicine 05/06/21 documented as of this encounter
--- OUTSIDE RECORDS SUMMARY | 2025-04-10 14:10 | XMS_ITS | Encounter Summary ---
Author Organization [facility] and [facility] Address [address] [place] [phone] Care Team Providers Care Cupola Melter Name Role Phone Caitlyn Bowie MD Primary Care Provider +1- [phone] Encounter Details Date Type Department Care Team (Late st Contact Info) Description 08/28/2015 Scanned Document [facility] Health Information Management [address] [place] [address] External, Provider Social History Tobacco Use Types [...] [facility] 240 [facility] Building [address] [place], [place] [phone] Ronald Mills MD 240 [facility] A1 [place] [address] documented as of this encounter Visit Diagnoses Not on filedocumented in this encounter Additional Health Concerns Infection Onset Date Last Indicated Resolved Time COVID-19 03/05/2022 03/05/2022 03/15/2022 7:18 PM EDT documented as of this encounter Care Teams Cupola Melter Relationship Specialty Start Date End Date Caitlyn Bowie MD 3400 [facility] 1 [place] [address] PCP - General Internal Medicine 05/06/21 Henry Kelly MD Pulmonary Department 175 [facility], [address] [place] [address] Physician Pulmonary Disease 09/06/17 06/22/20 documented as of this encounter
--- OUTSIDE RECORDS SUMMARY | 2025-04-10 14:10 | XMS_ITS | Encounter Summary ---
Author Organization [facility] and [facility] Address 20 [place] [address] Care Team Providers Care Fork Truck Operator Name Role Phone Caitlyn Bowie MD Primary Care Provider +1- [phone] Encounter Details Date Type Department Care Team (Late st Contact Info) Description 04/26/2017 Scanned Document Cardiovascular Medicine at [address] [place] [address] Norma Renee MD [address] [place] [phone] Social History Tobacco Use Types Packs/Day Years [...] PM EDT [facility] at [address] [place], [place] [phone] Ronald Mills MD 240 [facility] A1 [place] [address] documented as of this encounter Visit Diagnoses Not on filedocumented in this encounter Additional Health Concerns Infection Onset Date Last Indicated Resolved Time COVID-19 03/05/2022 03/05/2022 03/15/2022 7:18 PM EDT documented as of this encounter Care Teams Fork Truck Operator Relationship Specialty Start Date End Date Caitlyn Bowie MD 3400 [facility] Max 1 [place] [address] PCP - General Internal Medicine 05/06/21 Henry Kelly MD Pulmonary Department 175 [facility], [address] [place] [address] Physician Pulmonary Disease 09/06/17 06/22/20 documented as of this encounter
--- OUTSIDE RECORDS SUMMARY | 2025-04-10 14:10 | XMS_ITS | Encounter Summary ---
Author Organization [facility] Address [address] [place] [address] Care Team Providers Care Auditing Specialist Name Role Phone Caitlyn Bowie MD Primary Care Provider +1- [phone] Encounter Details Date Type Department Care Team (Late st Contact Info) Description 09/09/2015 Scanned Document [facility] Health Information Management [address] [place] [address] External, Provider Social History Tobacco Use Types [...] [facility] at [facility] 240 [facility] Building [address] [place], [place] [phone] Ronald Mills MD 240 [facility] Max [address]1 [place] [address] documented as of this encounter Procedures Procedure Name Priority Date/Time Associated Diagnosis Comments LAB SCAN Routine 09/09/2015 documented in this encounter Results * Lab Scan (09/09/2015) Blood specimen (specimen) us Provider External LAB BLOOD ORDERABLES Final Res ult [facility] documented in this encounter Visit Diagnoses Not on filedocumented in this encounter Additional Health Concerns Infection Onset Date Last Indicated Resolved Time COVID-19 03/05/2022 03/05/2022 03/15/2022 7:18 PM EDT documented as of this encounter Care Teams Auditing Specialist Relationship Specialty Start Date End Date Caitlyn Bowie MD 3400 [facility] 1 [place] [address] PCP - General Internal Medicine 05/06/21 Henry Kelly MD Pulmonary Department 175 [facility], [address] [place] [address] Physician Pulmonary Disease 09/06/17 06/22/20 documented as of this encounter
--- OUTSIDE RECORDS SUMMARY | 2025-04-10 14:10 | XMS_ITS | Encounter Summary ---
Author Organization [facility] and [facility] Address [address] [place] [address] Care Team Providers Care Filtering Machine Tender Name Role Phone Caitlyn Bowie MD Primary Care Provider +1- [phone] Encounter Details Date Type Department Care Team (Late st Contact Info) Description 04/14/2022 Scanned Document INTERFACE DEFAULT [address] [place] [address] System, Provider Not In Social History Tobacco [...] [facility] 240 [facility] Building [address] [place] [address] Ronald Mills MD [address] [place] [address] [address] [place] [address] documented as of this encounter Visit Diagnoses Not on filedocumented in this encounter Additional Health Concerns Assessment Noted Time PHQ-9 Depression Total Score: 2 11/07/19 19 2:06 PM EDT documented as of this encounter Care Teams Filtering Machine Tender Relationship Specialty Start Date End Date Caitlyn Bowie MD [address] [address] PCP - General Internal Medicine 05/06/21 documented as of this encounter
--- OUTSIDE RECORDS SUMMARY | 2025-04-10 14:10 | XMS_ITS | Encounter Summary ---
Author Organization [facility] and [facility] Address [address] [place] [address] Care Team Providers Care Music Grapher Name Role Phone Caitlyn Bowie MD Primary Care Provider +1- [phone] Encounter Details Date Type Department Care Team (Late st Contact Info) Description 04/13/2022 Scanned Document INTERFACE DEFAULT [address] [place] [address] System, Provider Not In Social History Tobacco [...] [facility] at [facility] 240 [facility] Building [address] [place], [place] [phone] Ronald Mills MD [address] [place] [address] [address] [place] [address] documented as of this encounter [...] as of this encounter Care Teams Music Grapher Relationship Specialty Start Date End Date Caitlyn Bowie MD [address] [address] PCP - General Internal Medicine 05/06/21 documented as of this encounter
--- OUTSIDE RECORDS SUMMARY | 2025-04-10 14:10 | XMS_ITS | Encounter Summary ---
Author Organization [facility] and [facility] Address [address] [place] [address] Care Team Providers Care Animation Director Name Role Phone Caitlyn Bowie MD Primary Care Provider +1- [phone] Encounter Details Date Type Department Care Team (Late st Contact Info) Description 04/25/2022 Scanned Document INTERFACE DEFAULT [address] [place] [address] System, Provider Not In Social History Tobacco [...] [facility] at [facility] 240 [facility] Building [address] [place] [address] Ronald Mills MD [address] [place] [address] [address] [place] [address] documented as of this encounter Visit Diagnoses Not on filedocumented in this encounter Additional Health Concerns Assessment Noted Time PHQ-9 Depression Total Score: 2 11/07/19 19 2:06 PM EDT documented as of this encounter Care Teams Animation Director Relationship Specialty Start Date End Date Caitlyn Bowie MD [address] [address] PCP - General Internal Medicine 05/06/21 documented as of this encounter
--- OUTSIDE RECORDS SUMMARY | 2025-04-10 14:10 | XMS_ITS | Clinical Summary ---
Author Organization [address] Address 20 [place] [address] Phone Care Team Providers Care Cargo Agent Name Role Phone Caitlyn Bowie MD Primary Care Provider +1- [phone] Allergies Active Allergy Reactions Criticality Noted Date [...] Type Department Care Team Description 04/05/2025 Telephone AMBULANCE ATTENDANT [facility] 20 [place] [address] Mary Pan MD Advice Only 01/20/2025 Telephone [facility] 35 [facility] NP7[address] [place] [address] Ronald Mills MD Triage from Last 3 [...] PM EDT Tele[facility]icine [facility] at [address] [place], [place] [address] Ronald Mills MD [address] [place] [address] [address] [place] [address] Health Maintenance Due Date Last Done [...] [facility] [place] Potassium 4.7 3.3 - 5.3 mmol/L 04/05/2022 1:43 PM EDT [facility] OF LABORATORY MEDICINE [facility] Chloride 100 98 - 107 mmol/L 04/05/2022 1:43 PM EDT [facility] DE[facility] OF LABORATORY MEDICINE [facility] CO2 30 20 - 30 mmol/L 04/05/2022 1:43 PM EDT [facility] OF LABORATORY MEDICINE [facility] Anion Gap 8 7 - 17 04/05/2022 1:43 PM EDT [facility] OF LABORATORY MEDICINE [facility] Glucose 115(H) 70 - 100 mg/dL 04/05/2022 1:43 PM EDT [facility] DE[facility]MENT OF LABORATORY MEDICINE [facility] BUN 16 8 - 23 mg/dL 04/05/2022 1:43 PM EDT [facility] DEPARTMENT LABORATORY MEDICINE [facility] Creatinine 0.89 0.40 - 1.30 mg/dL 04/05/2022 1:43 PM EDT [facility] DE[facility] LABORATORY MEDICINE [facility] Calcium 10.5(H) 8.8 - 10.2 mg/dL 04/05/2022 1:43 PM EDT [facility] LABORATORY MEDICINE [facility] BUN/Creatinine Ratio 18.0 8.0 - 23.0 03/11 1:43 PM EDT [facility] DE[facility] OF LABORATORY MEDICINE [facility] Total Protein 7.0 6.6 - 8.7 g/dL 04/05/2022 1:43 PM T [facility] DEPART[facility] LABORATORY MEDICINE [facility] Albumin 4.2 3.6 - 4.9 g/dL 04/05/2022 1:43 PM T [facility] LABORATORY MEDICINE [facility] Total Bilirubin 0.6 <=1.2 mg/dL 04/05/2022 1:43 PM T [facility] DEPARTMENT OF LABORATORY MEDICINE [facility] Alkaline Phosphatase 58 9 - 122 U/L 04/05/2022 1:43 PM [facility] DEPARTMENT OF LABORATORY MEDICINE [facility] Alanine Aminotransferase (ALT) 19 10 - 35 U/L 04/05/2022 1:43 PM T [facility] DEPART[facility] OF LABORATORY MEDICINE [facility] Comment:Calcium dobesilate c an cause artificially low ALT results at therapeutic concentrations Aspartate Aminotransferase (AST) 26 10 - 35 U/L 04/05/2022 1:43 PM EDT [facility] DE[facility] LABORATORY MEDICINE [facility] Globulin 2.8 2.3 - 3.5 g/dL 04/05/2022 1:43 PM [facility] DEPARTMENT LABORATORY MEDICINE [facility] A/G Ratio 1.5 1.0 - 2.2 04/05/2022 1:43 PM EDT [facility] DEPARTMENT OF LABORATORY MEDICINE [facility] AST/ALT Ratio 1.4 See Comment 04/05/2022 1:43 PM EDT [facility] OF LABORATORY MEDICINE [facility] Comment: Adult with mild elevations [...] [facility] Comment:Estimated glomerular filtration rate (eGFR) [...] [facility] MEDIC[facility] [address] [place] [address] * Bone Density Result Scan (05/10/2017) us Historical Provider IMG SCAN REPORTS Final Resul t * (ABNORMAL) Lipid panel (03/18/2016 2:55 PM EDT) Cholesterol 229(H) 115 - 199 mg/dL 03/18/2016 8:11 PM EDT [facility] HDL 83 >=40 mg/dL 03/18/2016 8:11 PM EDT [facility] Triglycerides 71 30 - 150 mg/dL 03/18/2016 8:11 PM EDT [facility] Chol/HDL Ratio 2.8 <=5 03/18/2016 8:11 PM EDT [facility] Comment:Cholesterol/HDL rati o cannot be calculated. LDL Calculated 132 See Comment mg/dL 03/18/2016 8:11 PM EDT [facility] Comment: <100: Optimal 100-129: Near optimal/above optimal 130-159: Borderline high risk 160-189: High risk >=190: Very high risk Blood specimen (specimen) Venipuncture / Unknown 03/18/2016 2:55 PM EDT 03/18/2016 3:17 PM EDT Narrative [facility] - 03/18/2016 8:11 PM EDT $18.27 us Sangeeta Garces MD LAB BLOOD ORDERABLES Fin al Result [facility] [address] [place] [address] * MAMMOGRAPHY REPORT (04/25/2013 6:47 AM EDT) 04/25/2013 6:47 AM EDT us Provider Not In System IMG SCAN REPORTS Final Re sult from Last 3 Months or Most Recently Relevant to Health Maintenance Insurance MEDICARE [facility] MEDICARE [facility] MEDICARE [facility] MEDICARE MEDICARE BCBS Advance Directives * Full ACLS (Latest Code Status on File) Date Activated Date Inactivated Comments 12/15/2018 7:13 PM 12/16/2018 6:09 PM * Full Interventions Date Activated Date Inactivated Comments 03/18/2016 6:34 PM 03/19/2016 6:40 PM Care Teams Cargo Agent Relationship Specialty Start Date End Date Caitlyn Bowie MD [facility] [address] [address] PCP - General Internal Medicine 05/06/21
--- OUTSIDE RECORDS SUMMARY | 2025-04-10 14:11 | XMS_ITS | Encounter Summary ---
Author Organization [facility] Address [address] [place] [address] Care Team Providers Care Humanities And Languages Professor Name Role Phone Caitlyn Bowie MD Primary Care Provider +1- [phone] Encounter Details Date Type Department Care Team (Late st Contact Info) Description 01/08/2022 Scanned Document INTERFACE DEFAULT [address] [place] [address] System, Provider Not In Social History Tobacco [...] Center at [facility] 240 [facility] Building [address] [place], [place] [phone] Ronald Mills MD [address] [place] [address] [address] [place] [address] documented as of this encounter [...] documented as of this encounter Care Teams Humanities And Languages Professor Relationship Specialty Start Date End Date Caitlyn Bowie MD [address] [address] PCP - General Internal Medicine 05/06/21 documented as of this encounter
--- OUTSIDE RECORDS SUMMARY | 2025-04-10 14:11 | XMS_ITS | Encounter Summary ---
Author Organization [facility] Address [address] [place] [address] Care Team Providers Care Cone Baker Machine Name Role Phone Caitlyn Bowie MD Primary Care Provider +1- [phone] Encounter Details Date Type Department Care Team (Late st Contact Info) Description 02/06/2019 Scanned Document [facility] Health Information Management [address] [place] [address] External, Provider Social History Tobacco Use Types [...] [facility] Building [address] [place] [address] Ronald Mills MD [address] [place] [address] [address] [place] [address] documented as of this encounter [...] documented as of this encounter Care Teams Cone Baker Machine Relationship Specialty Start Date End Date Caitlyn Bowie MD 3400 [facility] 1 [place] [address] PCP - General Internal Medicine 05/06/21 Henry Kelly MD Pulmonary Department 175 [facility], [address] [place] [address] Physician Pulmonary Disease 09/06/17 06/22/20 documented as of this encounter
--- OUTSIDE RECORDS SUMMARY | 2025-04-10 14:11 | XMS_ITS | Encounter Summary ---
Author Organization [facility] and [facility] Address [address] [place] [address] Care Team Providers Care Primary Montessori Teacher Name Role Phone Caitlyn Bowie MD Primary Care Provider +1- [phone] Encounter Details Date Type Department Care Team (Late st Contact Info) Description 04/22/2021 Scanned Document INTERFACE DEFAULT [address] [place] [address] System, Provider Not In Social History Tobacco [...] at [facility] 240 [facility] Building [address] [place], [place] [phone] Ronald Mills MD [address] [place] [address] [address] [place] [address] documented as of this encounter [...] as of this encounter Care Teams Primary Montessori Teacher Relationship Specialty Start Date End Date Caitlyn Bowie MD [facility] [address] [address] PCP - General Internal Medicine 05/06/21 documented as of this encounter
--- OUTSIDE RECORDS SUMMARY | 2025-04-10 14:11 | XMS_ITS | Encounter Summary ---
Author Organization [facility] Address [address] [place] [address] Care Team Providers Care Production Metal Sprayer Name Role Phone Caitlyn Bowie MD Primary Care Provider +1- [phone] Encounter Details Date Type Department Care Team (Late st Contact Info) Description 01/30/2019 Scanned Document [facility] Health Information Management [address] [place] [address] External, Provider Social History Tobacco Use Types [...] [place] 240 [facility] Building [address] [place] [address] Ronald Mills MD [address] [place] [address] [address] [place] [address] documented as of this encounter [...] as of this encounter Care Teams Production Metal Sprayer Relationship Specialty Start Date End Date Caitlyn Bowie MD 3400 [facility] 1 [place] [address] PCP - General Internal Medicine 05/06/21 Henry Kelly MD Pulmonary Department 175 [facility], [address] [place] [address] Physician Pulmonary Disease 09/06/17 06/22/20 documented as of this encounter
--- OUTSIDE RECORDS SUMMARY | 2025-04-10 14:11 | XMS_ITS | Encounter Summary ---
Author Organization [facility] and [facility] Address [address] [place] [address] Care Team Providers Care Archeologist Classical Name Role Phone Caitlyn Bowie MD Primary Care Provider +1- [phone] Encounter Details Date Type Department Care Team (Late st Contact Info) Description 12/03/2015 Scanned Document [facility] Health Information Management [address] [place] [address] External, Provider Social History Tobacco Use Types [...] [facility] 240 [facility] Building [address] [place], [place] [phone] Ronald Mills MD 240 [facility] Max [address] [place] [address] documented as of this encounter Procedures Procedure Name Priority Date/Time Associated Diagnosis Comments LAB SCAN Routine 12/03/2015 documented in this encounter Results * Lab Scan (12/03/2015) Blood specimen (specimen) us Provider External LAB BLOOD ORDERABLES Edited Re sult - Final [facility] documented in this encounter Visit Diagnoses Not on filedocumented in this encounter Additional Health Concerns Infection Onset Date Last Indicated Resolved Time COVID-19 03/05/2022 03/05/2022 03/15/2022 7:18 PM EDT documented as of this encounter Care Teams Archeologist Classical Relationship Specialty Start Date End Date Caitlyn Bowie MD 3400 [facility] 1 [place] [address] PCP - General Internal Medicine 05/06/21 Henry Kelly MD Pulmonary Department 175 [facility], [address] [place] [address] Physician Pulmonary Disease 09/06/17 06/22/20 documented as of this encounter
--- OUTSIDE RECORDS SUMMARY | 2025-04-10 14:11 | XMS_ITS | Encounter Summary ---
Author Organization [facility] and [facility] Address [address] [place] [address] Care Team Providers Care Ultrasound Sonographer Name Role Phone Caitlyn Bowie MD Primary Care Provider +1- [phone] Encounter Details Date Type Department Care Team (Late st Contact Info) Description 04/12/2021 Scanned Document INTERFACE DEFAULT [address] [place] [address] System, Provider Not In Social History [...] [facility] 240 [facility] Building [address] [place], [place] [address] Ronald Mills MD [address] [place] [address] [address] [place] [address] documented as of this encounter [...] End Date Caitlyn Bowie MD [address] [address] PCP - General Internal Medicine 05/06/21 documented as of this encounter
--- OUTSIDE RECORDS SUMMARY | 2025-04-10 14:11 | XMS_ITS | Encounter Summary ---
Author Organization [facility] and [facility] Address [address] [place] [address] Care Team Providers Care B2B Sales Executive Name Role Phone Caitlyn Bowie MD Primary Care Provider +1- [phone] Encounter Details Date Type Department Care Team (Late st Contact Info) Description 06/07/2017 Scanned Document [facility] Health Information Management [address] [place] [address] External, Provider Social History Tobacco Use Types [...] [facility] 240 [facility] Building [address] [place], [place] [address] Ronald Mills MD [address] [place] [address] [address] [place] [address] documented as of this encounter [...] documented as of this encounter Care Teams B2B Sales Executive Relationship Specialty Start Date End Date Caitlyn Bowie MD 3400 [facility] 1 [place] [address] PCP - General Internal Medicine 05/06/21 Henry Kelly MD Pulmonary Department 175 [facility], [address] [place] [address] Physician Pulmonary Disease 09/06/17 06/22/20 documented as of this encounter
--- OUTSIDE RECORDS SUMMARY | 2025-04-10 14:11 | XMS_ITS | Encounter Summary ---
Author Organization [facility] and [facility] Address [address] [place] [address] Care Team Providers Care Printer Slotter Operator Name Role Phone Caitlyn oBwie MD Primary Care Provider +1- [phone] Encounter Details Date Type Department Care Team (Late st Contact Info) Description 03/23/2021 Scanned Document INTERFACE DEFAULT [address] [place] [address] System, Provider Not In Social History Tobacco [...] at [facility] [place] 240 [facility] Building [address] [place] [address] Ronald Mills MD [address] [place] [address] [address] [place] [address] documented as of this encounter [...] documented as of this encounter Care Teams Printer Slotter Operator Relationship Specialty Start Date End Date Caitlyn Bowie MD [address] [address] PCP - General Internal Medicine 05/06/21 documented as of this encounter
--- OUTSIDE RECORDS SUMMARY | 2025-04-10 14:11 | XMS_ITS | Encounter Summary ---
Author Organization [facility] and [facility] Address [address] [place] [phone] Care Team Providers Care Scalder Name Role Phone Caitlyn Bowie MD Primary Care Provider +1- [phone] Encounter Details Date Type Department Care Team (Late st Contact Info) Description 11/04/2015 Scanned Document [facility] Health Information Management [address] [place] [phone] External, Provider Social History Tobacco Use Types [...] at [facility] [address] [facility] [address] [place], [place] [id number] Ronald Mills MD [address] [facility] [address] [place] [address] documented as of this encounter Procedures Procedure Name Priority Date/Time Associated Diagnosis Comments NUC MED/PET RESULT SCAN Routine 11/04/2015 documented in this encounter Results * Nuc Med/PET Result Scan (11/04/2015) us Provider External IMG SCAN REPORTS Edited Result - Final [facility] [place], [place], [facility] documented in this encounter Visit Diagnoses Not on filedocumented in this encounter Additional Health Concerns Infection Onset Date Last Indicated Resolved Time COVID-19 03/05/2022 03/05/2022 03/15/2022 7:18 PM EDT documented as of this encounter Care Teams Scalder Relationship Specialty Start Date End Date Caitlyn Bowie MD [address] [facility] [address] [place] [address] PCP - General Internal Medicine 05/06/21 Henry Kelly MD Pulmonary Department 175 [facility], [address] [place] [address] Physician Pulmonary Disease 09/06/17 06/22/20 documented as of this encounter
--- OUTSIDE RECORDS SUMMARY | 2025-04-10 14:11 | XMS_ITS | Encounter Summary ---
Author Organization [facility] and [facility] Address [address] [place] [phone] Care Team Providers Care Location Worker Name Role Phone Caitlyn Bowie MD Primary Care Provider +1- [phone] Encounter Details Date Type Department Care Team (Late st Contact Info) Description 12/29/2021 Telephone [facility] at [address] - [address] [address] Ronald Mills MD [address] [place] [phone] Social History Tobacco Use Types Packs/Day [...] not sure where the blood's coming from. [phone] documented in this encounter Plan of Treatment Upcoming Encounters Date Type Department Care Team (Late st Contact Info) Description 04/25/2025 4:00 PM EDT Telemedicine [facility] 240 [facility] [address] [place] [address] Ronald Mills MD [address] [facility] [address] [place] [phone] documented as of this encounter Visit Diagnoses Not on filedocumented in this encounter Additional Health Concerns Infection Onset Date Last Indicated Resolved Time COVID-19 03/05/2022 03/05/2022 03/15/2022 7:18 PM EDT Assessment Noted Time PHQ-9 Depression Total Score: 2 11/07/19 19 2:06 PM EDT documented as of this encounter Care Teams Location Worker Relationship Specialty Start Date End Date Caitlyn Bowie MD [address] [address] PCP - General Internal Medicine 05/06/21 documented as of this encounter
--- OUTSIDE RECORDS SUMMARY | 2025-04-10 14:11 | XMS_ITS | Encounter Summary ---
Author Organization [facility] and [facility] Address [address] [place] [phone] Care Team Providers Care Glazier Structural Glass Name Role Phone Caitlyn Bowie MD Primary Care Provider +1- [phone] Encounter Details Date Type Department Care Team (Late st Contact Info) Description 04/11/2021 Scanned Document [facility] Health Information Management [address] [place] [id number] External, Provider Social History Tobacco Use Types [...] at [facility] 240 [facility] [address] [place], [place] [phone] Ronald Mills MD [address] [place] [address] [address] [place] [address] documented as of this encounter Visit Diagnoses Not on filedocumented in this encounter Additional Health Concerns Infection Onset Date Last Indicated Resolved Time COVID-19 03/05/2022 03/05/2022 03/15/2022 7:18 PM EDT Assessment Noted Time PHQ-9 Depression Total Score: 2 11/07/19 19 2:06 PM EDT documented as of this encounter Care Teams Glazier Structural Glass Relationship Specialty Start Date End Date Caitlyn Bwoie MD [address] [address] PCP - General Internal Medicine 05/06/21 documented as of this encounter
--- OUTSIDE RECORDS SUMMARY | 2025-04-10 14:11 | XMS_ITS | Encounter Summary ---
Author Organization [facility] and [facility] Address [address] [place] [phone] Care Team Providers Care Real Estate Account Executive Name Role Phone Caitlyn Bowie MD Primary Care Provider +1- [phone] Encounter Details Date Type Department Care Team (Late st Contact Info) Description 04/02/2021 Scanned Document INTERFACE DEFAULT [address] [place] [phone] System, Provider Not In Social History Tobacco [...] [facility] [address] [facility] [address] [place], [place] [id number] Ronald Mills MD [address] [place] [address] [address] [place] [address] documented as of this encounter [...] of this encounter Care Teams Real Estate Account Executive Relationship Specialty Start Date End Date Caitlyn Bowie MD [address] [address] PCP - General Internal Medicine 05/06/21 documented as of this encounter
--- OUTSIDE RECORDS SUMMARY | 2025-04-10 14:11 | XMS_ITS | Encounter Summary ---
Author Organization [facility] Address [address] [place] [phone] Care Team Providers Care Brass Pourer Name Role Phone Caitlyn Bowie MD Primary Care Provider +1- [phone] Encounter Details Date Type Department Care Team (Late st Contact Info) Description 04/12/2022 Scanned Document INTERFACE DEFAULT [address] [place] [address] System, Provider Not In Social History Tobacco [...] [facility] 240 [facility] [address] [place] [address] Ronald Mills MD [address] [place] [address] [address] [place] [address] documented as of this encounter [...] as of this encounter Care Teams Brass Pourer Relationship Specialty Start Date End Date Caitlyn Bowie MD [address] [address] PCP - General Internal Medicine 05/06/21 documented as of this encounter
--- OUTSIDE RECORDS SUMMARY | 2025-04-10 14:11 | XMS_ITS | Encounter Summary ---
Author Organization [facility] Address [address] [place] [address] Care Team Providers Care Accounts Payable Clerk Name Role Phone Pcp, No Primary Care Provider Brennan Mario MD Primary Care Provider [phone] Cailtyn Bowie MD Primary Care Provider +1- [phone] Encounter Details Date Type Department Care Team (Late st Contact Info) Description 01/04/2022 Scanned Document [facility] Neurology Ophthalmology [address] [address] Yary Whitten DO [address] [place] [address] Social History Tobacco Use Types Packs/Day [...] filedocumented in this encounter Care Teams Accounts Payable Clerk Relationship Specialty Start Date End Date Pcp, No PCP - General General Medicine 10/04/21 07/18/22 Brennan Burnett MD [address] [place] [address] PCP - General 07/19/22 03/19/23 Caitlyn Bowie MD [address] [place] [address] PCP - General Internal Medicine 03/20/23 documented as of this encounter
--- OUTSIDE RECORDS SUMMARY | 2025-04-10 14:11 | XMS_ITS | Encounter Summary ---
Author Organization [facility] and [facility] Address [address] [place] [phone] Care Team Providers Care Baseball Inspector And Repairer Name Role Phone Caitlyn Bowie MD Primary Care Provider +1- [phone] Encounter Details Date Type Department Care Team (Late st Contact Info) Description 04/11/2021 Scanned Document INTERFACE DEFAULT [address] [place] [address] System, Provider Not In Social History Tobacco [...] [facility] Building [address] [place], [place] [phone] Ronald Mills MD [address] [place] [address] [address] [place] [address] [...] documented as of this encounter Care Teams Baseball Inspector And Repairer Relationship Specialty Start Date End Date Caitlyn Bowie MD [address] [address] PCP - General Internal Medicine 05/06/21 documented as of this encounter
--- OUTSIDE RECORDS SUMMARY | 2025-04-10 14:11 | XMS_ITS | Encounter Summary ---
Author Organization [facility] and [facility] Address [address] [place] [phone] Care Team Providers Care Auricular Detoxification Specialist Name Role Phone Caitlyn Bowie MD Primary Care Provider +1- [phone] Encounter Details Date Type Department Care Team (Late st Contact Info) Description 04/13/2021 Scanned Document INTERFACE DEFAULT [address] [place] [address] System, Provider Not In Social History Tobacco [...] [facility] 240 [facility] [address] [place], [place] [phone] Ronald Mills MD [address] [place] [address] [address] [place] [address] documented as of this encounter [...] documented as of this encounter Care Teams Auricular Detoxification Specialist Relationship Specialty Start Date End Date Caitlyn Bowie MD [address] [address] PCP - General Internal Medicine 05/06/21 documented as of this encounter
--- OUTSIDE RECORDS SUMMARY | 2025-04-10 14:11 | XMS_ITS | Encounter Summary ---
Author Organization [facility] and [facility] Address [address] [place] [phone] Care Team Providers Care Manager Maintenance Name Role Phone Caitlyn Bowie MD Primary Care Provider +1- [phone] Encounter Details Date Type Department Care Team (Late st Contact Info) Description 12/01/2015 Scanned Document [facility] Health Information Management [address] [place] [address] External, Provider Social History Tobacco Use Types [...] [facility] 240 [facility] Building [address] [place], [place] [phone] Ronald Mills MD 240 [facility] [address] [place] [address] documented as of this encounter Procedures Procedure Name Priority Date/Time Associated Diagnosis Comments CT RESULT SCAN Routine 12/01/2015 documented in this encounter Results * CT Result Scan (12/01/2015) us Provider External IMG SCAN REPORTS Edited Result - Final [facility] [place], [place], [facility] documented in this encounter Visit Diagnoses Not on filedocumented in this encounter Additional Health Concerns Infection Onset Date Last Indicated Resolved Time COVID-19 03/05/2022 03/05/2022 03/15/2022 7:18 PM EDT documented as of this encounter Care Teams Manager Maintenance Relationship Specialty Start Date End Date Caitlyn Bowie MD [address] [facility] [address] [place] [address] PCP - General Internal Medicine 05/06/21 Henry Kelly MD Pulmonary Department 175 [facility] [place] [address] Physician Pulmonary Disease 09/06/17 06/22/20 documented as of this encounter
--- OUTSIDE RECORDS SUMMARY | 2025-04-10 14:11 | XMS_ITS | Encounter Summary ---
Author Organization [facility] Address [address] [place] [phone] Care Team Providers Care Kit Planner Name Role Phone Caitlyn Bowie MD Primary Care Provider +1- [phone] Encounter Details Date Type Department Care Team (Late st Contact Info) Description 12/16/2015 Scanned Document [facility] Health Information Management [address] [place] [phone] External, Provider Social History Tobacco Use Types [...] [facility] 240 [facility] Building [address] [place], [place] [phone] Ronald Mills MD 240 [facility] [address] [place] [address] documented as of this encounter Procedures Procedure Name Priority Date/Time Associated Diagnosis Comments US RESULT SCAN Routine 12/16/2015 documented in this encounter Results * US Result Scan (12/16/2015) us Provider External IMG SCAN REPORTS Edited Result - Final [facility] [place], [place], [facility] documented in this encounter Visit Diagnoses Not on filedocumented in this encounter Additional Health Concerns Infection Onset Date Last Indicated Resolved Time COVID-19 03/05/2022 03/05/2022 03/15/2022 7:18 PM EDT documented as of this encounter Care Teams Kit Planner Relationship Specialty Start Date End Date Caitlyn Bowie MD [address] [facility] [address] [place] [address] PCP - General Internal Medicine 05/06/21 Henry Kelly MD Pulmonary Department 175 [facility], [address] [place] [address] Physician Pulmonary Disease 09/06/17 06/22/20 documented as of this encounter
--- OUTSIDE RECORDS SUMMARY | 2025-04-10 14:11 | XMS_ITS | Clinical Summary ---
Author Organization [facility] Address [address] [place] [address] Phone Care Team Providers Care Power House Control Room Operator Name Role Phone Caitlyn Bowie MD Primary Care Provider [phone]- [phone] Allergies Active Allergy Reactions Criticality Noted Date [...] each day. 30 tablet 2 5 Active Active Problems Problem Noted Date Diagnosed [...] 20 mg as needed by her previous family life counselor which she has taken sporadically. I have asked her to take this daily to see if this improves her symptoms and she has a follow-up appointment with Dr. Shah on September 16 which she will keep. We also had a long conversation regarding the fact that she is seeing 3 different family life counselor for the same problems. We informed her [...] continues to see Dr. Avalos or her family life counselor at [facility]. She verbalized understanding of [...] antibody syndrome (CMS/HCC V24) 12/24/2018 Adrenal insufficiency ([facility] V24) 08/23/2018 Allergic rhinitis 08/23/2018 Hyperparathyroidism ([facility] V24) 08/23/2018 MRSA infection 08/23/2018 Overview (05/16/2024): 06/2009, s/p thoracotomy infection Osteoarthritis 08/23/2018 Radiation-induced pulmonary fibrosis ([facility] V2 4) 11/13/2017 Bronchiectasis ([facility] V24, [facility] V28) 2017 Leg edema 08/08/2017 Restrictive lung disease 08/08/2017 Chronic obstructive pulmonar y disease ([facility] V24, [facility] V28) 04/13/2017 Fibromyalgia 04/13/2017 Congestive heart failure ([facility] V24, [facility] V 28) 04/04/2017 Heterozygous factor V Leiden mutation ([facility] V 24) 04/04/2017 Obstructive sleep apnea syndrome 04/04/2017 Overview (05/16/2024): CPAP Pleural effusion 04/04/2017 Pulmonary hypertension ([facility] V24, [facility] V28 ) 04/04/2017 Multiple [...] Description 03/20/2025 11:40 AM EDT Office Visit [address] [place] [phone] Ayanna Jaffe MD Optic neuritis (Primary Dx); White matter lesion of central nervous system; Blurry vision 02/24/2025 Telephone Gastroenterology - [address] [facility] [address] [place] [phone] Tim Gomes MD 02/23/2025 11:40 AM EDT - 02/23/2025 4:22 PM EDT Emergency [facility] Emergency [address] [place] [phone] Celia Snider DO Diverticulitis (Primary Dx) Discharge Disposition: Home or Self Care 02/21/2025 4:30 PM EDT Office Visit [facility] 175 [facility] [address] [place] [phone] Shirley Chaidez PA Optic neuritis (Primary Dx) 01/19/2025 7:49 PM EDT - 01/19/2025 9:08 PM EDT Emergency [facility] Emergency [address] [place] [phone] Discharge Disposition: Home or Self Care from Last 3 Months Immunizations Immunization Administration Dates Next Due Influenza trivalent, 0.5mL, preservative free (Fluarix; FluLaval; Fluzone) ages 6mo and older (Afluria) 3 years and older 04/18/2016 Pneumococcal polysaccharide 23 valent (Pneumovax 23) 2yo and older 09/17/2015 Tdap Tetanus diptheria acell ular pertussis (Boostrix; Adacel) 7yo and older 02/17/2016 Surgical History Surgery Date Site/Laterality Comments TONSILLECTOMY PROCEDURE: HISTORICAL TONSILLECTOMY OTHER SURGICAL HISTORY PROCEDURE: VT RMVL LUNG XCP TOT PNEUMONECTOMY SLEEVE LOBECTOMY; [...] pathology report UPPER GASTROINTESTINAL ENDOSCOPY 05/03/2015 PROCEDURE: VT UPPER GI ENDOSCOPY PERFORMED MITRAL CLIP PROCEDURE Medical History Medical History Date Comments Akathisia 04/15/2013 DX:Akathisia Anxiety 12/07/2016 DX:Anxiety Bronchiectasis (CMS/HCC V24, [facility] V28) 08/08/2017 DX:Bronchiectasis (HCC) Cataract 08/26/2014 DX:Cataract Chronic obstructive pulmonar y disease (CMS[facility]HCC [facility]24, [facility] V[facility]) 04/13/2017 DX:Chronic obstructive pulm onary disease [...] pect Heterozygous factor V Leiden mutation ([facility] V24) 04/04/2017 DX:Heterozygous factor V Lei den mutation ([facility]) History of pulmonary embolism 05/15/2017 [...] DX:Postc oncussion syndrome Pulmonary hypertension ([facility] V24, [facility] V28) 04/04/2017 DX:Pulmonary hypertension (H CC) Restrictive lung disease 08/08/2017 DX:Rest rictive lung disease 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 DX:Zinc deficien cy Obstructive sleep apnea syndrome 04/04/2017 DX:Obstructive sleep apnea syndrome; COMMENT: CPAP Radiation-induced pulmonary fibrosis ([facility] V24) 11/13/2017 DX:Radiation-induced pulmona ry fibrosis (HCC) Adrenal insufficiency ([facility] V24) 08/23/2018 DX:Adrenal insufficiency (HCC) Hyperparathyroidism ([facility] V24) 08/23/2018 DX:Hyperparathyroidism (HCC) Osteoporosis 11/17/2016 DX:Osteoporosis [...] Mx LLL resection, Chemo, RT, Cisplatin, Vinorelbine [phone] Antiphospholipid antibody sy ndrome ([facility] V24) 12/24/2018 DX:Antiphospholipid antibody syndrome (HCC) 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 Hyperparathyroidism ([facility] V24) DX:Hyperparathyroidism (HCC) Adrenal insufficiency ([facility] V24) DX:Adrenal insufficiency (HCC) Family History Medical [...] Info) Description 04/14/2025 10:00 AM EDT Evaluation [facility] 175 [facility] [address] [place] [phone] Bruno Moreno, PT [address] [place] [address] 05/29/2025 3:00 PM EST Office Visit [facility] [address] [facility] [address] [place] [phone] Ayanna Jaffe MD [address] [place] [address] Health Maintenance Due Date Last Done Comments [...] central nervous system Blurry vision NEUROMYELITIS OPTICA, [id number] Routine 03/20/2025 12:31 PM EDT Optic neuritis [...] to titer (03/20/2025 12:31 PM EDT) Pathologist [facility] MOG Antibody, Cell-based IFA Negative Negative 03/25/2025 1:05 AM EDT [facility] Blood Venous blood specimen / Unknown Venipuncture / Unknown 03/20/2025 12:31 PM EDT 03/20/2025 12:31 PM EDT Narrative [facility] - 03/25/2025 1:05 AM EDT Test(s) 126587-[id number] Antibody, Cell-based IFA was developed and its performance characteristics determined by [facility]. It has not been cleared or approved by the Food and Drug Administration. Performed at: [address] [place] [id number] Rotary Bar Operator: Melissa Wetzel MD, Phone: [phone] Ayanna Jaffe MD LAB BLOOD ORDERABLES Fin al Result [facility] * Neuromyelitis optica, [id number] (03/20/2025 12:31 PM EDT) [facility] NMO IgG Autoantibodies <1.5 0.0 - 3.0 U/mL 03/24/2025 3:05 PM EDT [facility] Comment: Negative: 0.0 - 3.0 Positive: >3.0 Blood Venous blood specimen / Unknown Venipuncture / Unknown 03/20/2025 12:31 PM EDT 03/20/2025 12:31 PM EDT Narrative [facility] - 03/24/2025 3:05 PM EDT Performed at: 01 - [facility] [address] [id number] Rotary Bar Operator: Melissa Wetzel MD, Phone: [phone] Ayanna Jaffe MD LAB BLOOD ORDERABLES Fin al Result [facility] * (ABNORMAL) CBC auto differential (03/20/2025 12:31 PM EDT) Only the most recent of2 resultswithin the time period is included. [facility] WBC 11.0(H) 4.8 - 10.8 K/mcL LAB HEMETOLOGY METHOD 03/20/2025 2:23 PM EDT [facility] RBC 3.50(L) 3.80 - 4.80 M/mcL LAB [facility] Hemoglobin 11.5 11.5 - 16.0 g/dL LAB HEMETOLOGY METHOD 03/20/2025 2:23 PM EDT [facility] Hematocrit 36.7 35.0 - 47.0 % LAB HEMETOLOGY METHOD 03/20/2025 2:23 PM EDT [facility] MCV 105.2(H) 79.0 - 98.0 FL LAB [facility]ETOLOGY METHOD [facility]/20[facility]2025 [facility] MCH 33.0(H) 27.0 - 32.0 pcg LAB HEMETOLOGY METHOD 03/20/2025 2:23 PM EDT [facility] MCHC 31.3(L) 32.0 - 37.0 g/dL LAB HEMETOLOGY METHOD 03/20/2025 2:23 PM EDT [facility] RDW 14.1 11.0 - 15.0 % LAB HEMETOLOGY METHOD [facility]/20[facility]2025 [facility] Platelets 243 130 - 400 K/mcL LAB HEMETOLOGY METHOD 03/20/2025 2:23 PM [facility] MPV 11.3(H) 7.0 - 11.0 FL LAB HEMETOLOGY METHOD 03/20/2025 2:23 PM [facility] NRBC 0.2 <1.0 % LAB HEMETOLOGY METHOD 03/20/2025 2:23 PM [facility] NRBC Absolute 0.02 <0.10 K/mcL LAB HEMETOLOGY METHOD 03/20/2025 2:23 PM [facility] Neutrophils Relative 75.9 % LAB HEMETOLOGY METHOD 03/20/2025 2:23 PM [facility] Lymphocytes Relative 8.7 % LAB HEMETOLOGY METHOD 03/20/2025 2:23 PM [facility] Monocytes Relative 12.2 % LAB HEMETOLOGY METHOD 03/20/2025 2:23 PM [facility] Eosinophils Relative 0.7 % LAB HEMETOLOGY METHOD 03/20/2025 2:23 PM [facility] Basophils Relative 0.7 % LAB HEMETOLOGY METHOD 03/20/2025 2:23 PM [facility] Immature Granulocytes Relative 1.8 % LAB HEMETOLOGY METHOD 03/20/2025 2:23 PM [facility] Neutrophils Absolute 8.36(H) 1.50 - 7.00 K/mcL LAB HEMETOLOGY METHOD 03/20/2025 2:23 PM [facility] Lymphocytes Absolute 0.96(L) 1.00 - 5.00 K/mcL LAB HEMETOLOGY METHOD 03/20/2025 2:23 PM [facility] Monocytes Absolute 1.34(H) 0.20 - 1.00 K/mcL LAB HEMETOLOGY METHOD 03/20/2025 2:23 PM [facility] Eosinophils Absolute 0.08 0.00 - 0.50 K/mcL LAB HEMETOLOGY METHOD 03/20/2025 2:23 PM EDT [facility] Basophils Absolute 0.08 0.00 - 0.20 K/[facility] LAB HEMETOLOGY METHOD 03/20/2025 2:23 PM EDT [facility] Immature Granulocytes Absolute 0.20(H) 0.00 - 0.03 K/[facility] LAB HEMETOLOGY METHOD 03/20/2025 2:23 PM EDT [facility] Blood Venous blood specimen / Unknown Venipuncture / Unknown 03/20/2025 12:31 PM EDT 03/20/2025 12:31 PM EDT Ayanna Jaffe MD LAB BLOOD ORDERABLES Fin al Result Performing Organization Address City/[facility]/ZIP Co de Phone Number [facility] [address] [place] [address], [place] [phone] * Sedimentation rate (03/20/2025 12:31 PM EDT) Sed Rate 25 0 - 30 mm/hr LAB HEMETOLOGY METHOD 03/20/2025 2:14 PM EDT [facility] Blood Venous blood specimen / Unknown Venipuncture / Unknown 03/20/2025 12:31 PM EDT 03/20/2025 12:31 PM EDT Ayanna Jaffe MD LAB BLOOD ORDERABLES Fin al Result [facility] [address] [place] [address], [place] [phone] * ECG-Annotated (02/24/2025) us Provider Onbase MD ECG ORDERABLES Final Result * CT Head wo Contrast (02/23/2025 2:53 PM EDT) Anatomical Region Laterality Modality Head and Neck Computed Tomogra phy 02/23/2025 2:57 PM EDT Impressions 02/23/2025 3:01 PM EDT Impression: No acute hemorrhage or intracranial mass effect. No significant change. Telekarla KAPOOR ([id number]) -------- FINAL REPORT -------- Dictated By: Fawn Levin Dictated Date: 02/23/2025 14:57 ET Assigned Physician: Fawn Levin Reviewed and Electronically Signed By: Fawn Levin Signed Date: 02/23/2025 15:01 ET Workstation ID: [id number] Transcribed By: Self Edit Transcribed Date: 02/23/2025 14:57 ET Narrative 02/23/2025 3:01 PM EDT History: Headache. Comparison: 12/10/24 Technique: Contiguous axial images were obtained at 2.5 mm intervals through the posterior fossa and at 5 mm intervals through the remainder of the brain without intravenous contrast. DLP: 808.85 mGy/cm GE LightSpeed VCT Iterative reconstruction technique Findings: Moderate generalized [...] without intravenous contrast. DLP: 808.85 mGy/cm GE LightSpeed VCT Iterative reconstruction technique Findings: Moderate generalized [...] mass effect. No significant change. Telerad EMELIA ([id number]) -------- FINAL REPORT -------- Dictated By: Fawn Levin Dictated Date: 02/23/2025 14:57 ET Assigned Physician: Fawn Levin Reviewed and Electronically Signed By: Fawn Levin Signed Date: 02/23/2025 15:01 ET Workstation ID: [id number] Transcribed By: Self Edit Transcribed Date: 02/23/2025 [...] appropriate, to exclude this possibility. Telerad EMELIA ([id number]) -------- FINAL REPORT -------- Dictated By: Fawn Levin Dictated Date: 02/23/2025 15:01 ET Assigned Physician: Fawn Levin Reviewed and Electronically Signed By: Fawn Levin Signed Date: 02/23/2025 15:05 ET Workstation ID: [id number] Transcribed By: Self Edit Transcribed Date: 02/23/2025 15:01 ET Narrative 02/23/2025 3:05 PM EDT History: Left lower quadrant abdominal pain. Comparison: 08/23/23 Technique: Helical volumetric imaging of the abdomen and pelvis was performed without intravenous or oral contrast. DLP: 480.07 mGy/cm Virax VCT Iterative reconstruction technique Findings: Chronic pleural-parenchymal [...] intravenous or oral contrast. DLP: 480.07 mGy/cm Virax VCT Iterative reconstruction technique Findings: Chronic pleural-parenchymal [...] appropriate, to exclude this possibility. Telerad EMELIA ([id number]) -------- FINAL REPORT -------- Dictated By: Fawn Levin Dictated Date: 02/23/2025 15:01 ET Assigned Physician: Fawn Levin Reviewed and Electronically Signed By: Fawn Levin Signed Date: 02/23/2025 15:05 ET Workstation ID: [id number] Transcribed By: Self Edit Transcribed Date: 02/23/2025 15:01 ET Afsaneh KAPOOR IMG CT PROCEDURES Final Resu lt * Lactate, with reflex (02/23/2025 2:25 PM EDT) Pathologist [facility] LACTIC ACID 1.1 0.4 - 2.0 mmol/L LAB CHEMISTRY METHOD 02/23/2025 3:25 PM EDT [facility] Blood Venous blood specimen / Unknown Venipuncture / Unknown 02/23/2025 2:25 PM EDT 02/23/2025 2:35 PM EDT us Afsaneh KAPOOR LAB BLOOD ORDERABLES Final R esult [facility] [address] [place] [address], [place] [phone] * Blood Culture, Peripheral Draw #2 (02/23/2025 2:25 PM EDT) Only the most recent of2 resultswithin the time period is included. Culture, Blood No growth at 5 days 02/28/2025 3:01 PM EDT [facility] Blood Venous blood specimen / Unknown Venipuncture / Unknown 02/23/2025 2:25 PM EDT 02/23/2025 2:35 PM EDT Afsaneh KAPOOR LAB MICROBIOLOGY - GENERAL O RDERABLES Final Result [facility] [address] [place] [address], * XR Chest 1 View (02/23/2025 2:15 PM EDT) Anatomical Region Laterality Modality Body Radiographic Monserrat ging 02/23/2025 2:33 PM EDT Impressions 02/23/2025 2:37 PM EDT Impression: Stable radiographic appearance of the chest, including volume loss and chronic pleural-parenchymal opacity in the left hemithorax consistent with previously treated lung carcinoma. No acute process identified. Telekarla KAPOOR ([id number]) -------- FINAL REPORT -------- Dictated By: Fawn Levin Dictated Date: 02/23/2025 14:33 ET Assigned Physician: Fawn Levin Reviewed and Electronically Signed By: Fawn Levin Signed Date: 02/23/2025 14:37 ET Workstation ID: [id number] Transcribed By: Self Edit Transcribed Date: 02/23/2025 14:33 ET Narrative 02/23/2025 2:37 PM EDT History: Dyspnea. Personal history of lung carcinoma. Comparison: 07/30/23, thoracic CT 09/09/24 [place], [place] Findings: Portable AP upright chest at [...] lung is grossly clear. Procedure Note Fawn Leivn MD - 02/23/2025 History: Dyspnea. Personal history of lung carcinoma. Comparison: 07/30/23, thoracic CT 09/09/24 [place], [place] Findings: Portable AP upright chest at [...] carcinoma. No acute process identified. Telerad EMELIA ([id number]) -------- FINAL REPORT -------- Dictated By: Fawn Levin Dictated Date: 02/23/2025 14:33 ET Assigned Physician: Fawn Levin Reviewed and Electronically Signed By: Fawn Levin Signed Date: 02/23/2025 14:37 ET Workstation ID: [id number] Transcribed By: Self Edit Transcribed Date: 02/23/2025 14:33 ET Afsaneh KAPOOR IMG XR PROCEDURES Final Resu lt * Urinalysis with reflex microscopic and culture (02/23/2025 2:04 PM EDT) Specific [place] Urine 1.006 1.003 - 1.030 LAB URINALYSIS - AUTOMATED METHOD 02/23/2025 2:17 PM EDT [facility] pH, Urine 7.5 5.0 - 8.0 pH LAB URINALYSIS - AUTOMATED METHOD 02/23/2025 2:17 PM EDT [facility] Leukocytes, Urine Negative Negative LAB URINALYSIS - AUTOMATED METHOD 02/23/2025 2:17 PM EDT [facility] Nitrite, Urine Negative Negative LAB URINALYSIS - AUTOMATED METHOD 02/23/2025 2:17 PM EDT [facility] Protein, Urine Negative <=Trace mg/dL LAB URINALYSIS - AUTOMATED METHOD 02/23/2025 2:17 PM EDT [facility] Glucose, Urine Negative Negative mg/dL LAB URINALYSIS - AUTOMATED METHOD 02/23/2025 2:17 PM EDT [facility] Ketones, Urine Negative Negative mg/dL LAB URINALYSIS - AUTOMATED METHOD 02/23/2025 2:17 PM EDT [facility] Urobilinogen, Urine 0.2 0.2 - 1.0 mg/dL LAB URINALYSIS - AUTOMATED METHOD 02/23/2025 2:17 PM EDT [facility] Bilirubin, Urine Negative Negative LAB URINALYSIS - AUTOMATED METHOD 02/23/2025 2:17 PM EDT [facility] Blood, Urine Negative Negative LAB URINALYSIS - AUTOMATED METHOD 02/23/2025 2:17 PM EDT [facility] Urine Urine specimen obtained by clean catch procedure / Unknown Non-blood Collection / Unknown 02/23/2025 2:04 PM EDT 02/23/2025 2:05 PM EDT us Afsaneh KAPOOR LAB URINE ORDERABLES Final R esult [facility] [address] [place] [address], * Martinez urine culture tube (02/23/2025 2:04 PM EDT) Extra Tube Hold for add-ons. 02/23/2025 4:01 PM EDT [facility] Comment:Auto resulted. Urine Urine specimen obtained by clean catch procedure / Unknown Non-blood Collection / Unknown 02/23/2025 2:04 PM EDT 02/23/2025 2:05 PM EDT us Afsaneh KAPOOR LAB URINE ORDERABLES Final R esult Performing Organization Address [facility] Co de Phone Number [facility] [address] [place] [address], [place] [phone] * Troponin I high sensitivity (02/23/2025 1:15 PM EDT) [facility] High Sensitivity Troponin I 25 <=54 ng/L LAB CHEMISTRY METHOD 02/23/2025 2:15 PM EDT [facility] Blood Venous blood specimen / Unknown Venipuncture / Unknown 02/23/2025 1:15 PM EDT 02/23/2025 1:39 PM EDT Narrative [facility] - 02/23/2025 2:15 PM EDT High levels of biotin in samples may falsely decrease hsTroponin values. Use caution when interpreting hsTroponin results in patients taking biotin who exhibit renal impairment (eGFR <60) or in patients taking more than 20 mg/day of biotin. Afsaneh KAPOOR LAB BLOOD ORDERABLES Final R esult Performing Organization Address [facility] Co de Phone Number [facility] [address] [place] [address], [place] [phone] * (ABNORMAL) Prothrombin time with INR (02/23/2025 1:15 PM EDT) [facility] Protime 14.9(H) 10.6 - 13.9 sec LAB COAGULATION METHOD 02/23/2025 1:52 PM EDT [facility] INR 1.2 LAB COAGULATION METHOD 02/23/2025 1:52 PM EDT [facility] Blood Venous blood specimen / Unknown Venipuncture / Unknown 02/23/2025 1:15 PM EDT 02/23/2025 1:40 PM EDT Afsaneh KAPOOR LAB BLOOD ORDERABLES Final R esult Performing Organization Address City/[facility]/ZIP Co de Phone Number [facility] [address] [place] [address], [place] [phone] * Type and screen (02/23/2025 1:15 PM EDT) [facility] ABO Group A 02/23/2025 2:47 PM EDT [facility] Rh Type Positive 02/23/2025 2:47 PM EDT [facility] Antibody Screen Negative 02/23/2025 2:47 PM EDT [facility] Blood Venous blood specimen / Unknown Venipuncture / Unknown 02/23/2025 1:15 PM EDT 02/23/2025 1:40 PM EDT Afsaneh KAPOOR LAB BLOOD BANK TEST ORDERABL ES Final Result Performing Organization Address [facility] Co de Phone Number [facility] [address] [place] [address], [place] [phone] * (ABNORMAL) Comprehensive Metabolic Panel (CMP) (02/23/2025 1:15 PM EDT) [facility] Sodium 136 133 - 145 mmol/L LAB CHEMISTRY METHOD 02/23/2025 2:13 PM EDT [facility] Potassium 3.5 3.5 - 5.5 mmol/L LAB CHEMISTRY METHOD 02/23/2025 2:13 PM EDT [facility] Chloride 97 96 - 110 mmol/L LAB CHEMISTRY METHOD 02/23/2025 2:13 PM EDT [facility] CO2 33(H) 21 - 32 mmol/L LAB CHEMISTRY METHOD 02/23/2025 2:13 PM EDT [facility] Anion Gap 6 3 - 11 LAB CHEMISTRY METHOD 02/23/2025 2:13 PM EDT [facility] Glucose 100 70 - [...] g/dL LAB CHEMISTRY METHOD 02/23/2025 2:13 PM [facility] Albumin 3.5 3.2 - 5.0 g/dL LAB CHEMISTRY METHOD 02/23/2025 2:13 PM [facility] Total Bilirubin 0.5 0.0 - 1.4 mg/dL LAB CHEMISTRY METHOD 02/23/2025 2:13 PM [facility] Blood Venous blood specimen / Unknown Venipuncture / Unknown 02/23/2025 1:15 PM EDT 02/23/2025 1:39 PM EDT Afsaneh KAPOOR LAB BLOOD ORDERABLES Final R esult [facility] [address] [place] [address], * 12-Lead ECG (02/23/2025 1:05 PM EDT) Ventricular Rate ECG 79 BPM GEMUSE Atrial Rate 79 BPM GEMUSE P-R Interval 164 ms GEMUSE QRS Duration 138 ms GEMUSE Q-T Interval 422 ms GEMUSE QTc 483 ms GEMUSE P Wave [place] 68 degrees GEMUSE R [place] -59 degrees GEMUSE T [place] 62 degrees GEMUSE ECG Interpretation Normal sinus [...] GEMUSE from Last 3 Months Insurance MEDICARE [facility] Advance Directives Documents on File Type Date Recorded Patient Rn Iv Therapy Expl anation Health Care Decision (hx) 10/18/2013 [...] (hx) 10/04/2013 AD LACEY DIRECTIVE Care Teams Power House Control Room Operator Relationship Specialty Start Date End Date Caitlyn Bowie MD [address] [place] [id number] PCP - General Internal Medicine 12/10/24
--- OUTSIDE RECORDS SUMMARY | 2025-04-10 14:11 | XMS_ITS | Encounter Summary ---
Author Organization [facility] Address [address] [place] [id number] Care Team Providers Care Central Control Room Operator Name Role Phone Caitlyn Bowie MD Primary Care Provider [phone] Encounter Details Date Type Department Care Team (Late st Contact Info) Description 03/12/2019 Scanned Document [facility] Health Information Management [address] [place] [id number] External, Provider Social History Tobacco Use Types [...] [facility] [address] [facility] [address] [place] [address] Ronald Mills MD [address] [place] [address] [address] [place] [address] documented as of this encounter [...] as of this encounter Care Teams Central Control Room Operator Relationship Specialty Start Date End Date Caitlyn Bowie MD [address] [facility] [address] [place] [address] PCP - General Internal Medicine 05/06/21 Henry Kelly MD Pulmonary Department [address] [facility] [place] [address] Physician Pulmonary Disease 09/06/17 06/22/20 documented as of this encounter
--- OUTSIDE RECORDS SUMMARY | 2025-04-10 14:11 | XMS_ITS | Encounter Summary ---
Author Organization [facility] and [facility] Address [address] [place] [address] Care Team Providers Care Apparel Merchandiser Name Role Phone Caitlyn Bowie MD Primary Care Provider +1- [phone] Encounter Details Date Type Department Care Team (Late st Contact Info) Description 03/24/2021 Scanned Document INTERFACE DEFAULT [address] [place] [address] System, Provider Not In Social History Tobacco [...] [facility] [address] [facility] [address] [place] [address] Ronald Mills MD [address] [place] [address] [address] [place] [address] documented as of this encounter Visit Diagnoses Not on filedocumented in this encounter Additional Health Concerns Infection Onset Date Last Indicated Resolved Time COVID-19 03/05/2022 03/05/2022 03/15/2022 7:18 PM EDT Assessment Noted Time PHQ-9 Depression Total Score: 2 11/07/19 19 2:06 PM EDT documented as of this encounter Care Teams Apparel Merchandiser Relationship Specialty Start Date End Date Caitlyn Bowie MD [address] [address] PCP - General Internal Medicine 05/06/21 documented as of this encounter
--- OUTSIDE RECORDS SUMMARY | 2025-04-10 14:11 | XMS_ITS | Encounter Summary ---
Author Organization [facility] Address [address] [place] [address] Care Team Providers Care Business Development Specialist Name Role Phone Caitlyn Bowie MD Primary Care Provider +1- [phone] Encounter Details Date Type Department Care Team (Late st Contact Info) Description 04/21/2021 Scanned Document INTERFACE DEFAULT [address] [place] [address] System, Provider Not In Social History Tobacco [...] [facility] 240 [facility] Building [address] [place], [place] [phone] Ronald Mills MD [address] [place] [address] [address] [place] [address] documented as of this encounter [...] as of this encounter Care Teams Business Development Specialist Relationship Specialty Start Date End Date Caitlyn Bowie MD [facility] [address] [address] PCP - General Internal Medicine 05/06/21 documented as of this encounter
--- OUTSIDE RECORDS SUMMARY | 2025-04-10 14:11 | XMS_ITS | Encounter Summary ---
Author Organization [facility] Address [address] [place] [address] Care Team Providers Care Refrigerator Cabinetmaker Name Role Phone Caitlyn Bowie MD Primary Care Provider +1- [phone] Encounter Details Date Type Department Care Team (Late st Contact Info) Description 04/10/2021 Scanned Document INTERFACE DEFAULT [address] [place] [address] System, Provider Not In Social History Tobacco [...] [facility] 240 [facility] Building [address] [place] [address] Ronald Mills MD [address] [place] [address] [address] [place] [address] documented as of this encounter [...] as of this encounter Care Teams Refrigerator Cabinetmaker Relationship Specialty Start Date End Date Caitlyn Bowie MD [address] [address] PCP - General Internal Medicine 05/06/21 documented as of this encounter
--- OUTSIDE RECORDS SUMMARY | 2025-04-10 14:11 | XMS_ITS | Encounter Summary ---
Author Organization [facility] and [facility] Address [address] [place] [address] Care Team Providers Care Supply Person Name Role Phone Caitlyn Bowie MD Primary Care Provider +1- [phone] Encounter Details Date Type Department Care Team (Late st Contact Info) Description 08/09/2017 Scanned Document Cardiovascular Medicine at [address] [place] [address] [place] [address] System, Provider Not In Social History Tobacco [...] at [facility] 240 [facility] Building [address] [place] [address] Ronald Mills MD 240 [facility] [address] [place] [address] documented as [...] as of this encounter Care Teams Supply Person Relationship Specialty Start Date End Date Caitlyn Bowie MD 3400 [facility] 1 [place] [address] PCP - General Internal Medicine 05/06/21 [place] Kelly MD Pulmonary Department 175 [facility], [address] [place] [address] Physician Pulmonary Disease 09/06/17 06/22/20 documented as of this encounter
--- OUTSIDE RECORDS SUMMARY | 2025-04-10 14:11 | XMS_ITS | Encounter Summary ---
Author Organization [facility] Address [address] [place] [address] Care Team Providers Care Weaver Wire Loom Name Role Phone Caitlyn Bowie MD Primary Care Provider +1- [phone] Encounter Details Date Type Department Care Team (Late st Contact Info) Description 03/02/2022 Scanned Document [facility] BY [facility] Health Information Management [address] [place] [address] External, Provider Social History Tobacco Use Types [...] [facility] Building [address] [place], [place] [phone] Ronald Mills MD [address] [place] [address] [address] [place] [address] documented as of this encounter Visit Diagnoses Not on filedocumented in this encounter Additional Health Concerns Infection Onset Date Last Indicated Resolved Time COVID-19 03/05/2022 03/05/2022 03/15/2022 7:18 PM EDT Assessment Noted Time PHQ-9 Depression Total Score: 2 11/07/19 19 2:06 PM EDT documented as of this encounter Care Teams Weaver Wire Loom Relationship Specialty Start Date End Date Caitlyn Bowie MD [address] [address] PCP - General Internal Medicine 05/06/21 documented as of this encounter
--- OUTSIDE RECORDS SUMMARY | 2025-04-10 14:11 | XMS_ITS | Encounter Summary ---
Author Organization [facility] Address [address] [place] [address] Care Team Providers Care Millinery Department Manager Name Role Phone Caitlyn Bowie MD Primary Care Provider +1- [phone] Encounter Details Date Type Department Care Team (Late st Contact Info) Description 04/22/2019 Scanned Document [facility] Health Information Management [address] [place] [address] External, Provider Social History Tobacco Use Types [...] [facility] 240 [facility] [address] [place] [address] Ronald Mills MD [address] [place] [address] [address] [place] [address] documented as of this encounter Visit Diagnoses Not on filedocumented in this encounter Additional Health Concerns Infection Onset Date Last Indicated Resolved Time COVID-19 03/05/2022 03/05/2022 03/15/2022 7:18 PM EDT Assessment Noted Time PHQ-9 Depression Total Score: 2 11/07/19 19 2:06 PM EDT documented as of this encounter Care Teams Millinery Department Manager Relationship Specialty Start Date End Date Caitlyn Bowie MD 3400 [facility] 1 [place] [address] PCP - General Internal Medicine 05/06/21 [place] Kelly MD Pulmonary Department 175 [facility], [address] [place] [address] Physician Pulmonary Disease 09/06/17 06/22/20 documented as of this encounter
--- OUTSIDE RECORDS SUMMARY | 2025-04-10 14:11 | XMS_ITS | Encounter Summary ---
Author Organization [facility] and [facility] Address [address] [place] [address] Care Team Providers Care Pneumatic Drum Sander Name Role Phone Caitlyn Bowie MD Primary Care Provider +1- [phone] Encounter Details Date Type Department Care Team (Late Contact Info) Description 04/12/2022 Scanned Document [facility] Health Information Management [address] [place] [address] External, Provider Social History Tobacco Use Types [...] at [facility] 240 [facility] Building [address] [place], [place] [phone] Ronald Mills MD [address] [place] [address] [address] [place] [address] documented as of this encounter [...] documented as of this encounter Care Teams Pneumatic Drum Sander Relationship Specialty Start Date End Date Caitlyn Bowie MD [address] [address] PCP - General Internal Medicine 05/06/21 documented as of this encounter
--- OUTSIDE RECORDS SUMMARY | 2025-04-10 14:11 | XMS_ITS | Encounter Summary ---
Author Organization [facility] and [facility] Address [address] [place] [address] Care Team Providers Care Corporate Lawyer Name Role Phone Caitlyn Bowie MD Primary Care Provider +1- [phone] Encounter Details Date Type Department Care Team (Late st Contact Info) Description 08/21/2017 Scanned Document [facility] Health Information Management [address] [place] [address] External, Provider Social History Tobacco Use Types [...] [facility] 240 [facility] Building [address] [place], [place] [address] Ronald Mills MD [address] [place] [address] [address] [place] [address] documented as of this encounter [...] as of this encounter Care Teams Corporate Lawyer Relationship Specialty Start Date End Date Caitlyn Bowie MD 3400 [facility] 1 [place] [address] PCP - General Internal Medicine 05/06/21 [place] Kelly MD Pulmonary Department 175 [facility], [address] [place] [address] Physician Pulmonary Disease 09/06/17 06/22/20 documented as of this encounter
--- OUTSIDE RECORDS SUMMARY | 2025-04-10 14:11 | XMS_ITS | Encounter Summary ---
Author Organization [facility] and [facility] Address [address] [place] [address] Care Team Providers Care Veneer Taping Machine Offbearer Name Role Phone Caitlyn Bowie MD Primary Care Provider +1- [phone] Encounter Details Date Type Department Care Team (Late st Contact Info) Description 11/03/2015 Scanned Document [facility] Health Information Management [address] [place] [address] External, Provider Social History Tobacco Use Types [...] [facility] 240 [facility] Building [address] [place], [place] [phone] Ronald Mills MD 240 [facility] [address] [place] [address] documented as of this encounter Procedures Procedure Name Priority Date/Time Associated Diagnosis Comments US RESULT SCAN Routine 11/03/2015 documented in this encounter Results * US Result Scan (11/03/2015) us Provider External IMG SCAN REPORTS Edited Result - Final [facility] [place], [place], [facility] documented in this encounter Visit Diagnoses Not on filedocumented in this encounter Additional Health Concerns Infection Onset Date Last Indicated Resolved Time COVID-19 03/05/2022 03/05/2022 03/15/2022 7:18 PM EDT documented as of this encounter Care Teams Veneer Taping Machine Offbearer Relationship Specialty Start Date End Date Caitlyn Bowie MD 3400 [facility] Max 1 [place] [address] PCP - General Internal Medicine 05/06/21 [place] Kelly MD Pulmonary Department 175 [facility], [address] [place] [address] Physician Pulmonary Disease 09/06/17 06/22/20 documented as of this encounter
--- OUTSIDE RECORDS SUMMARY | 2025-04-10 14:11 | XMS_ITS | Encounter Summary ---
Author Organization [facility] Address [address] [place] [address] Care Team Providers Care Sql Server Consultant Name Role Phone Caitlyn Bowie MD Primary Care Provider +1- [phone] Encounter Details Date Type Department Care Team (Late st Contact Info) Description 04/11/2019 Scanned Document [facility] Health Information Management [address] [place] [address] External, Provider Social History Tobacco Use Types [...] [facility] Building [address] [place] [address] Ronald Mills MD [address] [place] [address] [address] [place] [address] documented as of this encounter [...] as of this encounter Care Teams Sql Server Consultant Relationship Specialty Start Date End Date Caitlyn Bowie MD 3400 [facility] 1 [place] [address] PCP - General Internal Medicine 05/06/21 [place] Kelly MD Pulmonary Department 175 [facility], [address] [place] [address] Physician Pulmonary Disease 09/06/17 06/22/20 documented as of this encounter
--- OUTSIDE RECORDS SUMMARY | 2025-04-10 14:11 | XMS_ITS | Encounter Summary ---
Author Organization [facility] Address [address] [place] [address] Care Team Providers Care Contracts Analyst Name Role Phone Caitlyn Bowie MD Primary Care Provider +1- [phone] Encounter Details Date Type Department Care Team (Late st Contact Info) Description 03/20/2023 Scanned Document [facility] Radiology [address] [place] [address] Caitlyn Bowie MD [address]00 [place] [address] Social History Tobacco Use Types Packs/Day Years [...] on filedocumented in this encounter Care Teams Contracts Analyst Relationship Specialty Start Date End Date Caitlyn Bowie MD [address]00 [place] [address] PCP - General Internal Medicine 03/20/23 documented as of this encounter
--- OUTSIDE RECORDS SUMMARY | 2025-04-10 14:11 | XMS_ITS | Encounter Summary ---
Author Organization [facility] and [facility] Address [address] [place] [address] Care Team Providers Care Automotive Exhaust Emissions Technician Name Role Phone Caitlyn Bowie MD Primary Care Provider +1- [phone] Reason for Visit * Reason Comments Results Encounter Details Date Type Department Care Team (Late st Contact Info) Description 03/15/2022 Telephone [facility] at [address] [address] Ronald Mills MD [address] [place] [address] Results Social History Tobacco Use Types [...] at [facility] 240 [facility] Building [address] [place] [address] Ronald Mills MD 240 [facility] [address] [place] [address] documented as of this encounter Visit Diagnoses Not on filedocumented in this encounter Additional Health Concerns Infection Onset Date Last Indicated Resolved Time COVID-19 03/05/2022 03/05/2022 03/15/2022 7:18 PM EDT Assessment Noted Time PHQ-9 Depression Total Score: 2 11/07/19 19 2:06 PM EDT documented as of this encounter Care Teams Automotive Exhaust Emissions Technician Relationship Specialty Start Date End Date Caitlyn Bowie MD [address] [address] PCP - General Internal Medicine 05/06/21 documented as of this encounter
--- OUTSIDE RECORDS SUMMARY | 2025-04-10 14:11 | XMS_ITS | Encounter Summary ---
Author Organization [facility] and [facility] Address [address] [place] [address] Care Team Providers Care Hay Rake Operator Name Role Phone Caitlyn Bowie MD Primary Care Provider +1- [phone] Encounter Details Date Type Department Care Team (Late st Contact Info) Description 04/16/2021 Scanned Document INTERFACE DEFAULT [address] [place] [address] System, Provider Not In Social History Tobacco [...] [facility] 240 [facility] Building [address] [place], [place] [address] Ronald Mills MD [address] [place] [address] [address] [place] [address] documented as of this encounter [...] documented as of this encounter Care Teams Hay Rake Operator Relationship Specialty Start Date End Date Caitlyn Bowie MD [facility] [address] [address] PCP - General Internal Medicine 05/06/21 documented as of this encounter
--- OUTSIDE RECORDS SUMMARY | 2025-04-10 14:12 | XMS_ITS | Encounter Summary ---
Author Organization [facility] and [facility] Address [address] [place] [address] Care Team Providers Care Theoretical Physicist Name Role Phone Caityln Bowie MD Primary Care Provider +1- [phone] Encounter Details Date Type Department Care Team (Late st Contact Info) Description 01/13/2019 Scanned Document [facility] Health Information Management [address] [place] [address] External, Provider Social History Tobacco Use Types [...] [facility] 240 [facility] Building [address] [place] [address] Ronald Mills MD [address] [place] [address] [address]1 [place] [address] documented as of this encounter [...] documented as of this encounter Care Teams Theoretical Physicist Relationship Specialty Start Date End Date Caitlyn Bowie MD 3400 [facility] 1 [place] [address] PCP - General Internal Medicine 05/06/21 [place] Kelly MD Pulmonary Department 175 [facility], [address] [place] [address] Physician Pulmonary Disease 09/06/17 06/22/20 documented as of this encounter
--- OUTSIDE RECORDS SUMMARY | 2025-04-10 14:12 | XMS_ITS | Encounter Summary ---
Author Organization [facility] Address [address] [place] [address] Phone Care Team Providers Care Trading Analyst Name Role Phone Caitlyn Bowie MD Primary Care Provider +1- [phone] Encounter Details Date Type Department Care Team (Late Contact Info) Description 12/12/2024 Documentation Only [facility] [address] [place] [address] Marina Abdi [address] [place] [address] Social History Tobacco Use Types [...] Visit [facility] [address] [place] [address] Rubén Ashraf MD [address] [place] [address] [place] [address] documented as of this encounter Visit Diagnoses Not on filedocumented in this encounter Care Teams Trading Analyst Relationship Specialty Start Date End Date Caitlyn Bowie MD [address]00 [place], [place] PCP - General Internal Medicine 09/24/24 documented as of this encounter
--- OUTSIDE RECORDS SUMMARY | 2025-04-10 14:12 | XMS_ITS | Encounter Summary ---
Author Organization [facility] and [facility] Address [address] [place] [address] Care Team Providers Care Sand Car Worker Name Role Phone Caitlyn Bowie MD Primary Care Provider +1- [phone] Encounter Details Date Type Department Care Team (Late st Contact Info) Description 09/18/2020 Scanned Document INTERFACE DEFAULT [address] [place] [address] System, Provider Not In Social History Tobacco [...] [facility] 240 [facility] Building [address] [place] [address] Ronald Mills MD [address] [place] [address] [address] [place] [address] documented as of this encounter Visit Diagnoses Not on filedocumented in this encounter Additional Health Concerns Infection Onset Date Last Indicated Resolved Time COVID-19 03/05/2022 03/05/2022 03/15/2022 7:18 PM EDT Assessment Noted Time PHQ-9 Depression Total Score: 2 11/07/19 19 2:06 PM EDT documented as of this encounter Care Teams Sand Car Worker Relationship Specialty Start Date End Date Caitlyn Bowie MD [address] [address] PCP - General Internal Medicine 05/06/21 documented as of this encounter
--- OUTSIDE RECORDS SUMMARY | 2025-04-10 14:12 | XMS_ITS | Encounter Summary ---
Author Organization [facility] Address [address] [place] [address] Phone Care Team Providers Care Hydraulic Design Engineer Name Role Phone Caitlyn Bowie MD Primary Care Provider +1- [phone] Encounter Details Date Type Department Care Team (Late st Contact Info) Description 10/01/2024 Documentation Only [facility] [address] [place] [address] Ron Taylor [place] [address] [place] [address] Social History Tobacco Use Types [...] Visit [facility] [address] [place] [address] Rubén Ashraf MD [address] [place] [address] [place] [address] documented as of this encounter Visit Diagnoses Not on filedocumented in this encounter Care Teams Hydraulic Design Engineer Relationship Specialty Start Date End Date Caitlyn Bowie MD [address]00 [place], [place] PCP - General Internal Medicine 09/24/24 documented as of this encounter
--- OUTSIDE RECORDS SUMMARY | 2025-04-10 14:12 | XMS_ITS | Encounter Summary ---
Author Organization [facility] Address [address] [place] [address] Care Team Providers Care Supervisor Electronics Processing Name Role Phone Caitlyn Bowie MD Primary Care Provider +1- [phone] Encounter Details Date Type Department Care Team (Late st Contact Info) Description 03/22/2021 Scanned Document INTERFACE DEFAULT [address] [place] [address] System, Provider Not In Social History Tobacco [...] [facility] 240 [facility] Building [address] [place] [address] Ronald Mills MD [address] [place] [address] [address] [place] [address] documented as of this encounter Visit Diagnoses Not on filedocumented in this encounter Additional Health Concerns Infection Onset Date Last Indicated Resolved Time COVID-19 03/05/2022 03/05/2022 03/15/2022 7:18 PM EDT Assessment Noted Time PHQ-9 Depression Total Score: 2 11/07/19 19 2:06 PM EDT documented as of this encounter Care Teams Supervisor Electronics Processing Relationship Specialty Start Date End Date Caitlyn Bowie MD [address] [address] PCP - General Internal Medicine 05/06/21 documented as of this encounter
--- OUTSIDE RECORDS SUMMARY | 2025-04-10 14:12 | XMS_ITS | Encounter Summary ---
Author Organization [facility] and [facility] Address [address] [place] [address] Care Team Providers Care Packing Machine Inspector Name Role Phone Caitlyn Bowie MD Primary Care Provider +1- [phone] Encounter Details Date Type Department Care Team (Late st Contact Info) Description 02/28/2021 Scanned Document INTERFACE DEFAULT [address] [place] [address] System, Provider Not In Social History Tobacco [...] [facility] Building [address] [place] [address] Ronald Mills MD [address] [place] [address] [address] [place] [address] documented as of this encounter [...] documented as of this encounter Care Teams Packing Machine Inspector Relationship Specialty Start Date End Date Caitlyn Bowie MD [address] [address] PCP - General Internal Medicine 05/06/21 documented as of this encounter
--- OUTSIDE RECORDS SUMMARY | 2025-04-10 14:12 | XMS_ITS | Encounter Summary ---
Author Organization [facility] Address [address] [place] [address] Care Team Providers Care Senior Quality Assurance Engineer Name Role Phone Caitlyn Bowie MD Primary Care Provider +1- [phone] Reason for Visit * Reason Onset Date Comments Advice Only 04/05/2025 Encounter Details Date Type Department Care Team ([facility] st Contact Info) Description 04/05/2025 Telephone ENCEPHALOGRAPHER [address] [facility] [address] [place] [address] Mary Pan MD [address] [place] [address] Advice Only Social History Tobacco Use [...] Center, [facility] Building [address] [place], [place] [address] Ronald Mills MD 240 [facility] A1 [place] [address] documented as of this encounter Visit Diagnoses Not on filedocumented in this encounter Additional Health Concerns Assessment Noted Time PHQ-9 Depression Total Score: 2 11/07/19 19 2:06 PM EDT documented as of this encounter Care Teams Senior Quality Assurance Engineer Relationship Specialty Start Date End Date Caitlyn Bowie MD [address] [address] PCP - General Internal Medicine 05/06/21 documented as of this encounter
--- OUTSIDE RECORDS SUMMARY | 2025-04-10 14:12 | XMS_ITS | Encounter Summary ---
Author Organization [facility] and [facility] Address [address] [place] [address] Care Team Providers Care Fresh Foods Technician Name Role Phone Caitlyn Bowie MD Primary Care Provider +1- [phone] Encounter Details Date Type Department Care Team (Late st Contact Info) Description 01/09/2019 Scanned Document [facility] Health Information Management [address] [place] [address] External, Provider Social History Tobacco Use Types [...] [facility] Building [address] [place] [address] Ronald Mills MD [address] [place] [address] [address] [place] [address] documented as of this encounter [...] documented as of this encounter Care Teams Fresh Foods Technician Relationship Specialty Start Date End Date Caitlyn Bowie MD 3400 [facility] 1 [place] [address] PCP - General Internal Medicine 05/06/21 Henry Kelly MD Pulmonary Department 175 [facility], [address] [place] [address] Physician Pulmonary Disease 09/06/17 06/22/20 documented as of this encounter
--- OUTSIDE RECORDS SUMMARY | 2025-04-10 14:12 | XMS_ITS | Encounter Summary ---
Author Organization [facility] Address [address] [place] [address] Phone Care Team Providers Care Marketing Automation Manager Name Role Phone Caitlyn Bowie MD Primary Care Provider +1- [phone] Encounter Details Date Type Department Care Team (Late Contact Info) Description 12/12/2024 Documentation Only [facility] [address] [place] [address] Marina Abdi [address] [place] [address] Social History Tobacco Use Types [...] [facility] [address] [place] [address] Rubén Ashraf MD [address] [place] [address] [place] [address] documented as of this encounter Visit Diagnoses Not on filedocumented in this encounter Care Teams Marketing Automation Manager Relationship Specialty Start Date End Date Caitlyn Bowie MD [address] [place], [place] PCP - General Internal Medicine 09/24/24 documented as of this encounter
--- OUTSIDE RECORDS SUMMARY | 2025-04-10 14:12 | XMS_ITS | Encounter Summary ---
Author Organization [facility] and [facility] Address [address] [place] [address] Care Team Providers Care Underwriting Service Representative Name Role Phone Caitlyn Bowie MD Primary Care Provider +1- [phone] Encounter Details Date Type Department Care Team (Late st Contact Info) Description 10/07/2013 Scanned Document [facility] at [address] [address] Suzy Kong MD [address] [place] [address] Social History Tobacco Use Types Packs/Day [...] Telemedicine [facility] at [facility] 240 [facility] Building [address] [place], [place] [address] Ronald Mills MD 240 [facility] A1 [place] [address] documented as of this encounter Visit Diagnoses Not on filedocumented in this encounter Additional Health Concerns Infection Onset Date Last Indicated Resolved Time COVID-19 03/05/2022 03/05/2022 03/15/2022 7:18 PM EDT documented as of this encounter Care Teams Underwriting Service Representative Relationship Specialty Start Date End Date Caitlyn Bowie MD 3400 [facility] Max 1 [place] [address] PCP - General Internal Medicine 05/06/21 Henry Kelly MD Pulmonary Department 175 [facility], [address] [place] [address] Physician Pulmonary Disease 09/06/17 06/22/20 documented as of this encounter
--- OUTSIDE RECORDS SUMMARY | 2025-04-10 14:12 | XMS_ITS | Encounter Summary ---
Author Organization [facility] Address [address] [place] [address] Care Team Providers Care State Wildlife Officer Name Role Phone Caitlyn Bowie MD Primary Care Provider +1- [phone] Encounter Details Date Type Department Care Team (Late st Contact Info) Description 01/08/2019 Scanned Document [facility] Health Information Management [address] [place] [address] External, Provider Social History Tobacco Use Types [...] [facility] Building [address] [place] [address] Ronald Mills MD [address] [place] [address] [address] [place] [address] documented as of this encounter [...] Bowie MD 3400 [facility] 1 [place] [address] PCP - General Internal Medicine 05/06/21 Henry Kelly MD Pulmonary Department 175 [facility], [address] [place] [address] Physician Pulmonary Disease 09/06/17 06/22/20 documented as of this encounter
--- OUTSIDE RECORDS SUMMARY | 2025-04-10 14:12 | XMS_ITS | Encounter Summary ---
Author Organization [facility] Address [address] [place] [address] Care Team Providers Care Torch Straightener And Heater Name Role Phone Caitlyn Bowie MD Primary Care Provider +1- [phone] Encounter Details Date Type Department Care Team (Late st Contact Info) Description 01/17/2019 Scanned Document [facility] Health Information Management [address] [place] [address] External, Provider Social History Tobacco Use Types [...] [facility] 240 [facility] Building [address] [place] [address] Ronald Mills MD [address] [place] [address] [address] [place] [address] documented as of this encounter [...] documented as of this encounter Care Teams Torch Straightener And Heater Relationship Specialty Start Date End Date Caitlyn Bowie MD 3400 [facility] 1 [place] [address] PCP - General Internal Medicine 05/06/21 Henry Kelly MD Pulmonary Department 175 [facility], [address] [place] [address] Physician Pulmonary Disease 09/06/17 06/22/20 documented as of this encounter
--- OUTSIDE RECORDS SUMMARY | 2025-04-10 14:12 | XMS_ITS | Encounter Summary ---
Author Organization [facility] and [facility] Address [address] [place] [address] Care Team Providers Care Aerial Erector Name Role Phone Caitlyn Bowie MD Primary Care Provider +1- [phone] Encounter Details Date Type Department Care Team (Late st Contact Info) Description 09/01/2017 Scanned Document [facility] Health Information Management [address] [place] [address] External, Provider Social History Tobacco Use Types [...] [facility] Building [address] [place], [place] [phone] Ronald Mills MD 240 [facility] A1 [place] [address] documented as of this encounter [...] documented as of this encounter Care Teams Aerial Erector Relationship Specialty Start Date End Date Caitlyn Bowie MD [facility] 1 [place] [address] PCP - General Internal Medicine 05/06/21 Henry Kelly MD Pulmonary Department 175 [facility], [address] [place] [address] Physician Pulmonary Disease 09/06/17 06/22/20 documented as of this encounter
--- OUTSIDE RECORDS SUMMARY | 2025-04-10 14:12 | XMS_ITS | Encounter Summary ---
Author Organization [facility] and [facility] Address [address] [place] [address] Care Team Providers Care Molasses And Caramel Operator Name Role Phone Caitlyn Bowie MD Primary Care Provider +1- [phone] Encounter Details Date Type Department Care Team (Late st Contact Info) Description 01/26/2018 Scanned Document [facility] Health Information Management [address] [place] [address] External, Provider Social History Tobacco Use Types [...] [facility] 240 [facility] Building [address] [place], [place] [address] Ronald Mills MD [address] [place] [address] [address] [place] [address] documented as of this encounter [...] documented as of this encounter Care Teams Molasses And Caramel Operator Relationship Specialty Start Date End Date Caitlyn Bowie MD 3400 [facility] 1 [place] [address] PCP - General Internal Medicine 05/06/21 Henry Kelly MD Pulmonary Department 175 [facility], [address] [place] [address] Physician Pulmonary Disease 09/06/17 06/22/20 documented as of this encounter
--- OUTSIDE RECORDS SUMMARY | 2025-04-10 14:12 | XMS_ITS | Encounter Summary ---
Author Organization [facility] and [facility] Address [address] [place] [address] Care Team Providers Care Journeyman Meat Cutter Name Role Phone Caitlyn Bowie MD Primary Care Provider +1- [phone] Encounter Details Date Type Department Care Team (Late st Contact Info) Description 03/14/2021 Scanned Document INTERFACE DEFAULT [address] [place] [address] System, Provider Not In Social History Tobacco [...] [facility] 240 [facility] Building [address] [place], [place] [address] Ronald Mills MD [address] [place] [address] [address] [place] [address] documented as of this encounter [...] as of this encounter Care Teams Journeyman Meat Cutter Relationship Specialty Start Date End Date Caitlyn Bowie MD [address] [address] PCP - General Internal Medicine 05/06/21 documented as of this encounter
--- OUTSIDE RECORDS SUMMARY | 2025-04-10 14:12 | XMS_ITS | Encounter Summary ---
Author Organization [facility] Address [address] [place] [address] Care Team Providers Care Auditor Medical Claims Name Role Phone Caitlyn Bowie MD Primary Care Provider +1- [phone] Encounter Details Date Type Department Care Team (Late st Contact Info) Description 01/28/2019 Scanned Document [facility] Health Information Management [address] [place] [address] External, Provider Social History Tobacco Use Types [...] [facility] Building [address] [place] [address] Ronald Mills MD [address] [place] [address] [address] [place] [address] documented as of this encounter Visit Diagnoses Not on filedocumented in this encounter Additional Health Concerns Infection Onset Date Last Indicated Resolved Time COVID-19 03/05/2022 03/05/2022 03/15/2022 7:18 PM EDT Assessment Noted Time PHQ-9 Depression Total Score: 2 11/07/19 19 2:06 PM EDT documented as of this encounter Care Teams Auditor Medical Claims Relationship Specialty Start Date End Date Caitlyn Bowie MD 3400 [facility] 1 [place] [address] PCP - General Internal Medicine 05/06/21 Henry Kelly MD Pulmonary Department [address] [facility], [address] [place] [address] Physician Pulmonary Disease 09/06/17 06/22/20 documented as of this encounter
--- OUTSIDE RECORDS SUMMARY | 2025-04-10 14:12 | XMS_ITS | Encounter Summary ---
Author Organization [facility] Address [address] [place] [address] Care Team Providers Care Analytical Data Scientist Name Role Phone Caitlyn Bowie MD Primary Care Provider +1- [phone] Encounter Details Date Type Department Care Team (Late st Contact Info) Description 01/26/2018 Scanned Document [facility] Health Information Management [address] [place] [address] External, Provider Social History Tobacco Use Types [...] [facility] 240 [facility] Building [address] [place], [place] [address] Ronald Mills MD [address] [facility] [address] [place] [address] documented as of this encounter Visit Diagnoses Not on filedocumented in this encounter Additional Health Concerns Infection Onset Date Last Indicated Resolved Time COVID-19 03/05/2022 03/05/2022 03/15/2022 7:18 PM EDT documented as of this encounter Care Teams Analytical Data Scientist Relationship Specialty Start Date End Date Caitlyn Bowie MD [address] [facility] 1 [place] [address] PCP - General Internal Medicine 05/06/21 Henry Kelly MD Pulmonary Department 175 [facility], [address] [place] [address] Physician Pulmonary Disease 09/06/17 06/22/20 documented as of this encounter
--- OUTSIDE RECORDS SUMMARY | 2025-04-10 14:12 | XMS_ITS | Encounter Summary ---
Author Organization [facility] and [facility] Address [address] [place] [address] Care Team Providers Care Transmission Design Engineer Name Role Phone Caitlyn Bowie MD Primary Care Provider +1- [phone] Encounter Details Date Type Department Care Team (Late st Contact Info) Description 02/15/2021 Scanned Document INTERFACE DEFAULT [address] [place] [address] System, Provider Not In Social History Tobacco [...] [facility] 240 [facility] Building [address] [place] [address] Ronald Mills MD [address] [place] [address] [address] [place] [address] documented as of this encounter Visit Diagnoses Not on filedocumented in this encounter Additional Health Concerns Infection Onset Date Last Indicated Resolved Time COVID-19 03/05/2022 03/05/2022 03/15/2022 7:18 PM EDT Assessment Noted Time PHQ-9 Depression Total Score: 2 11/07/19 19 2:06 PM EDT documented as of this encounter Care Teams Transmission Design Engineer Relationship Specialty Start Date End Date Caitlyn Bowie MD [address] [address] PCP - General Internal Medicine 05/06/21 documented as of this encounter
--- OUTSIDE RECORDS SUMMARY | 2025-04-10 14:12 | XMS_ITS | Encounter Summary ---
Author Organization [facility] Address [address] [place] [address] Care Team Providers Care Hvac Engineering Technician Name Role Phone Caitlyn Bowie MD Primary Care Provider +1- [phone] Encounter Details Date Type Department Care Team (Late st Contact Info) Description 02/25/2021 Scanned Document INTERFACE DEFAULT [address] [place] [address] System, Provider Not In Social History Tobacco [...] at [facility] 240 [facility] Building [address] [place] [address] Ronald Mills MD [address] [place] [address] [address] [place] [address] documented as of this [...] as of this encounter Care Teams Hvac Engineering Technician Relationship Specialty Start Date End Date Caitlyn Bowie MD [address] [address] PCP - General Internal Medicine 05/06/21 documented as of this encounter
--- OUTSIDE RECORDS SUMMARY | 2025-04-10 14:12 | XMS_ITS | Encounter Summary ---
Author Organization [facility] Address 20 [place] [address] Care Team Providers Care Waterworks Operator Name Role Phone Caitlyn Bowie MD Primary Care Provider +1- [phone] Encounter Details Date Type Department Care Team (Late st Contact Info) Description 01/28/2019 Scanned Document Cardiovascular Medicine at [address] [place] [address] Cristian Arreguin MBBS [address] [place] [address] Social History Tobacco Use Types [...] PM EDT Telemedicine Cancer Center at [address] [place] [address] Ronald Mills MD [address] [place] [address] [address]1 [place] [address] documented as of this encounter Visit Diagnoses Not on filedocumented in this encounter Additional Health Concerns Infection Onset Date Last Indicated Resolved Time COVID-19 03/05/2022 03/05/2022 03/15/2022 7:18 PM EDT Assessment Noted Time PHQ-9 Depression Total Score: 2 11/07/19 19 2:06 PM EDT documented as of this encounter Care Teams Waterworks Operator Relationship Specialty Start Date End Date Caitlyn Bowie MD 3400 [facility] 1 [place] [address] PCP - General Internal Medicine 05/06/21 Henry Kelly MD Pulmonary Department [address] [place] [address], [address] [place] [address] Physician Pulmonary Disease 09/06/17 06/22/20 documented as of this encounter
--- OUTSIDE RECORDS SUMMARY | 2025-04-10 14:12 | XMS_ITS | Encounter Summary ---
Author Organization [facility] and [facility] Address [address] [place] [address] Care Team Providers Care Corporate Communications Associate Name Role Phone Caitlyn Bowie MD Primary Care Provider +1- [phone] Encounter Details Date Type Department Care Team (Late st Contact Info) Description 03/01/2021 Scanned Document INTERFACE DEFAULT [address] [place] [address] System, Provider Not In Social History Tobacco [...] [facility] 240 [facility] Building [address] [place] [address] Ronald Mills MD [address] [place] [address] [address] [place] [address] documented as of this encounter Visit Diagnoses Not on filedocumented in this encounter Additional Health Concerns Infection Onset Date Last Indicated Resolved Time COVID-19 03/05/2022 03/05/2022 03/15/2022 7:18 PM EDT Assessment Noted Time PHQ-9 Depression Total Score: 2 11/07/19 19 2:06 PM EDT documented as of this encounter Care Teams Corporate Communications Associate Relationship Specialty Start Date End Date Caitlyn Bowie MD [address] [address] PCP - General Internal Medicine 05/06/21 documented as of this encounter
--- OUTSIDE RECORDS SUMMARY | 2025-04-10 14:12 | XMS_ITS | Encounter Summary ---
Author Organization [facility] Address [address] [place] [address] Care Team Providers Care Clinic Nurse Name Role Phone Caitlyn Bowie MD Primary Care Provider +1- [phone] Encounter Details Date Type Department Care Team (Late st Contact Info) Description 01/07/2014 Documentation [facility] [address] [place] [address] Shilpi Ibarra [address] [place] [address] Social History Tobacco Use Types Packs/Day Years [...] [facility] 240 [facility] Building [address] [place], [place] [address] Ronald Mills MD [address] [place] [address] [place] [address] documented as of this encounter Visit Diagnoses Not on filedocumented in this encounter Additional Health Concerns Infection Onset Date Last Indicated Resolved Time COVID-19 03/05/2022 03/05/2022 03/15/2022 7:18 PM EDT documented as of this encounter Care Teams Clinic Nurse Relationship Specialty Start Date End Date Caitlyn Bowie MD [address] [place] [address] PCP - General Internal Medicine 05/06/21 Henry Kelly MD Pulmonary Department 175 [facility], [address] [place] [address] Physician Pulmonary Disease 09/06/17 06/22/20 documented as of this encounter
--- OUTSIDE RECORDS SUMMARY | 2025-04-10 14:12 | XMS_ITS | Encounter Summary ---
Author Organization [facility] Address [address] [place] [address] Care Team Providers Care Industrial Controller Name Role Phone Caitlyn Bowie MD Primary Care Provider +1- [phone] Encounter Details Date Type Department Care Team (Late st Contact Info) Description 03/16/2021 Scanned Document INTERFACE DEFAULT [address] [place] [address] System, Provider Not In Social History Tobacco [...] at [facility] 240 [facility] Building [address] [place] [address] Ronald Mills MD [address] [place] [address] [address]1 [place] [address] documented as of this encounter Visit Diagnoses Not on filedocumented in this encounter Additional Health Concerns Infection Onset Date Last Indicated Resolved Time COVID-19 03/05/2022 03/05/2022 03/15/2022 7:18 PM EDT Assessment Noted Time PHQ-9 Depression Total Score: 2 11/07/19 19 2:06 PM EDT documented as of this encounter Care Teams Industrial Controller Relationship Specialty Start Date End Date Caitlyn Bowie MD [address] [address] PCP - General Internal Medicine 05/06/21 documented as of this encounter
--- OUTSIDE RECORDS SUMMARY | 2025-04-10 14:12 | XMS_ITS | Encounter Summary ---
Author Organization [facility] Address 20 [place] [address] Care Team Providers Care Foreign Food Specialty Cook Name Role Phone Caitlyn Bowie MD Primary Care Provider +1- [phone] Encounter Details Date Type Department Care Team (Late st Contact Info) Description 10/16/2013 Scanned Document [facility] [address] [place] [address], 2nd floor [facility], [address] [place], [place] [address] Suzy Kong MD [address] [place] [address] Social History Tobacco Use Types Packs/Day [...] PM EDT Telemedicine Cancer Center at [address] [place] [address] Ronald Mills MD 240 [facility] A1 [place] [address] documented as of this encounter Visit Diagnoses Not on filedocumented in this encounter Additional Health Concerns Infection Onset Date Last Indicated Resolved Time COVID-19 03/05/2022 03/05/2022 03/15/2022 7:18 PM EDT documented as of this encounter Care Teams Foreign Food Specialty Cook Relationship Specialty Start Date End Date Caitlyn Bowie MD 3400 [facility] Max 1 [place] [address] PCP - General Internal Medicine 05/06/21 Henry Kelly MD Pulmonary Department 175 [facility], [address] [place] [address] Physician Pulmonary Disease 09/06/17 06/22/20 documented as of this encounter
--- OUTSIDE RECORDS SUMMARY | 2025-04-10 14:12 | XMS_ITS | Encounter Summary ---
Author Organization [facility] and [facility] Address [address] [place] [address] Care Team Providers Care Sinter Press Operator Name Role Phone Caitlyn Bowie MD Primary Care Provider +1- [phone] Encounter Details Date Type Department Care Team (Late st Contact Info) Description 08/23/2017 Scanned Document [facility] Health Information Management [address] [place] [address] External, Provider Social History Tobacco Use Types [...] [facility] 240 [facility] Building [address] [place], [place] [address] Ronald Mills MD [address] [place] [address] [address]1 [place] [address] documented as of this encounter [...] documented as of this encounter Care Teams Sinter Press Operator Relationship Specialty Start Date End Date Caitlyn Bowie MD 3400 [facility] 1 [place] [address] PCP - General Internal Medicine 05/06/21 Henry Kelly MD Pulmonary Department 175 [facility], [address] [place] [address] Physician Pulmonary Disease 09/06/17 06/22/20 documented as of this encounter
--- OUTSIDE RECORDS SUMMARY | 2025-04-10 14:12 | XMS_ITS | Encounter Summary ---
Author Organization [facility] Address [address] [place] [address] Care Team Providers Care Torsion Spring Coiling Machine Setter Name Role Phone Caitlyn Bowie MD Primary Care Provider +1- [phone] Encounter Details Date Type Department Care Team (Late st Contact Info) Description 03/11/2021 Scanned Document INTERFACE DEFAULT [address] [place] [address] System, Provider Not In Social History [...] [facility] Building [address] [place], [place] [address] Ronald Mills MD [address] [place] [address] [address] [place] [address] documented as of [...] documented as of this encounter Care Teams T[place]ion [place] Coiling Machine Setter Relationship Specialty Start Date End Date Caitlyn oBwie MD [facility] [address] [address] PCP - General Internal Medicine 05/06/21 documented as of this encounter
--- OUTSIDE RECORDS SUMMARY | 2025-04-10 14:12 | XMS_ITS | Encounter Summary ---
Author Organization [facility] and [facility] Address [address] [place] [address] Care Team Providers Care Program Services Planner Name Role Phone Caitlyn Bowie MD Primary Care Provider +1- [phone] Encounter Details Date Type Department Care Team (Late st Contact Info) Description 02/08/2016 Scanned Document [facility] Health Information Management [address] [place] [address] External, Provider Social History Tobacco Use Types [...] [facility] 240 [facility] [address] [place], [place] [id number] Ronald Mills MD 240 [facility] [address] [place] [address] documented as of this encounter Visit Diagnoses Not on filedocumented in this encounter Additional Health Concerns Infection Onset Date Last Indicated Resolved Time COVID-19 03/05/2022 03/05/2022 03/15/2022 7:18 PM EDT documented as of this encounter Care Teams Program Services Planner Relationship Specialty Start Date End Date Caitlyn [place]ie MD 3400 [facility] 1 [place] [address] PCP - General Internal Medicine 05/06/21 Henry Kelly MD Pulmonary Department 175 [facility], [address] [place] [address] Physician Pulmonary Disease 09/06/17 06/22/20 documented as of this encounter
--- OUTSIDE RECORDS SUMMARY | 2025-04-10 14:12 | XMS_ITS | Clinical Summary ---
Author Organization [facility] Address [address] [place] [address] Care Team Providers Care Top Tile Decorator Name Role Phone Caitlyn Bowie Primary Care Provider [phone] Allergies Active Allergy Reactions Criticality Noted Date [...] Throat tightness Throat tightness Throat tightness Ipratropium Wray Unknown Medium 12/18/2021 Isosorbide Mononitrate 11/23/2020 Other [...] topic Insurance MEDICARE PART A & B [facility] Care Teams Top Tile Decorator Relationship Specialty Start Date End Date Caitlyn Bowie [address] [place] [address] PCP - General Internal Medicine 07/18/22
--- OUTSIDE RECORDS SUMMARY | 2025-04-10 14:12 | XMS_ITS | Encounter Summary ---
Author Organization [facility] and [facility] Address [address] [place] [address] Care Team Providers Care Centrifugal Station Operator Name Role Phone Caitlyn [place]ie MD Primary Care Provider +1- [phone] Encounter Details Date Type Department Care Team (Late st Contact Info) Description 03/15/2021 Scanned Document INTERFACE DEFAULT [address] [place] [address] System, Provider Not In Social History Tobacco [...] [facility] 240 [facility] Building [address] [place], [place] [address] Ronald Mills MD [address] [place] [address] [address] [place] [address] documented as of this encounter [...] documented as of this encounter Care Teams Centrifugal Station Operator Relationship Specialty Start Date End Date Caitlyn [place] MD [facility] [address] [address] PCP - General Internal Medicine 05/06/21 documented as of this encounter
--- OUTSIDE RECORDS SUMMARY | 2025-04-10 14:12 | XMS_ITS | Encounter Summary ---
Author Organization [facility] Address [address] [place] [address] Care Team Providers Care Erp Manager Name Role Phone Caitlyn [place]ie MD Primary Care Provider +1- [phone] Encounter Details Date Type Department Care Team (Late st Contact Info) Description 02/24/2021 Scanned Document INTERFACE DEFAULT [address] [place] [address] System, Provider Not In Social History Tobacco [...] [facility] [address] [place] [address] Ronald Mills MD [address] [place] [address] [address] [place] [address] documented as of this encounter [...] documented as of this encounter Care Teams Erp Manager Relationship Specialty Start Date End Date Caitlyn [place]ie MD [address] [address] PCP - General Internal Medicine 05/06/21 documented as of this encounter
--- OUTSIDE RECORDS SUMMARY | 2025-04-10 14:12 | XMS_ITS | Encounter Summary ---
Author Organization [facility] and [facility] Address [address] [place] [address] Care Team Providers Care Refrigerator Repair Technician Name Role Phone Caitlyn [place]ie MD Primary Care Provider +1- [phone] Encounter Details Date Type Department Care Team (Late st Contact Info) Description 01/02/2019 Scanned Document [facility] Health Information Management [address] [place] [address] External, Provider Social History Tobacco Use Types [...] [facility] [address] [place] [address] Ronald Mills MD [address] [place] [address] [address] [place] [address] documented as of this encounter [...] as of this encounter Care Teams Refrigerator Repair Technician Relationship Specialty Start Date End Date Caitlyn [place]ie MD 3400 [facility] 1 [place] [address] PCP - General Internal Medicine 05/06/21 Henry Kelly MD Pulmonary Department 175 [facility], [address] [place] [address] Physician Pulmonary Disease 09/06/17 06/22/20 documented as of this encounter
--- OUTSIDE RECORDS SUMMARY | 2025-04-10 14:12 | XMS_ITS | Encounter Summary ---
Author Organization [facility] and [facility] Address [address] [place] [address] Care Team Providers Care Cardiopulmonary Technician And Eeg Tech Name Role Phone Caitlyn [place] MD Primary Care Provider +1- [phone] Encounter Details Date Type Department Care Team (Late st Contact Info) Description 01/26/2019 Scanned Document [facility] Health Information Management [address] [place] [address] External, Provider Social History Tobacco Use Types [...] [facility] 240 [facility] Building [address] [place] [address] Ronald Mills MD [address] [place] [address] [address] [place] [address] documented as of this encounter [...] as of this encounter Care Teams Cardiopulmonary Technician And Eeg Tech Relationship Specialty Start Date End Date Caitlyn [place] MD 3400 [facility] 1 [place] [address] PCP - General Internal Medicine 05/06/21 Henry Kelly MD Pulmonary Department 175 [facility], [address] [place] [address] Physician Pulmonary Disease 09/06/17 06/22/20 documented as of this encounter
--- OUTSIDE RECORDS SUMMARY | 2025-04-10 14:12 | XMS_ITS | Encounter Summary ---
Author Organization [facility] and [facility] Address [address] [place] [address] Care Team Providers Care Senior Validation Engineer Name Role Phone Caitlyn [place]ie MD Primary Care Provider +1- [phone] Encounter Details Date Type Department Care Team (Late st Contact Info) Description 03/08/2021 Scanned Document INTERFACE DEFAULT [address] [place] [address] System, Provider Not In Social History Tobacco [...] [facility] 240 [facility] Building [address] [place], [place] [address] Ronald Mills MD [address] [place] [address] [address] [place] [address] documented as of this encounter [...] as of this encounter Care Teams Senior Validation Engineer Relationship Specialty Start Date End Date Caitlyn [place] MD [facility] [address] [address] PCP - General Internal Medicine 05/06/21 documented as of this encounter
--- OUTSIDE RECORDS SUMMARY | 2025-04-10 14:12 | XMS_ITS | Encounter Summary ---
Author Organization [facility] and [facility] Address [address] [place] [address] Care Team Providers Care Business Lawyer Name Role Phone Caitlyn [place]ie MD Primary Care Provider +1- [phone] Encounter Details Date Type Department Care Team (Late st Contact Info) Description 11/29/2017 Scanned Document [facility] Health Information Management [address] [place] [address] External, Provider Social History Tobacco Use Types [...] [facility] [address] [facility] [address] [place], [place] [address] Ronald Mills MD [address] [place] [address] [address]1 [place] [address] documented as of this encounter [...] as of this encounter Care Teams Business Lawyer Relationship Specialty Start Date End Date Caitlyn [place]ie MD 3400 [facility] 1 [place] [address] PCP - General Internal Medicine 05/06/21 Henry Kelly MD Pulmonary Department 175 [facility], [address] [place] [address] Physician Pulmonary Disease 09/06/17 06/22/20 documented as of this encounter
--- OUTSIDE RECORDS SUMMARY | 2025-04-10 14:13 | XMS_ITS | Encounter Summary ---
Author Organization [facility] and [facility] Address [address] [place] [address] Care Team Providers Care Superintendent Division Name Role Phone Caitlyn [place]ie MD Primary Care Provider +1- [phone] Encounter Details Date Type Department Care Team (Late st Contact Info) Description 08/08/2024 Scanned Document INTERFACE DEFAULT [address] [place] [address] System, Provider Not In Social History Tobacco [...] [facility] 240 [facility] Building [address] [place], [place] [address] Ronald Mills MD [address] [place] [address] [address] [place] [address] documented as of this encounter [...] as of this encounter Care Teams Superintendent Division Relationship Specialty Start Date End Date Caitlyn [place] MD [address] [address] PCP - General Internal Medicine 05/06/21 documented as of this encounter
--- OUTSIDE RECORDS SUMMARY | 2025-04-10 14:13 | XMS_ITS | Encounter Summary ---
Author Organization [facility] and [facility] Address [address] [place] [address] Care Team Providers Care Rim Fire Charger Operator Name Role Phone Caitlyn [place]ie MD Primary Care Provider +1- [phone] Encounter Details Date Type Department Care Team (Late Contact Info) Description 02/02/2021 Scanned Document [facility] Health Information Management [address] [place] [address] External, Provider Social History Tobacco Use Types [...] [facility] 240 [facility] Building [address] [place], [place] [address] Ronald Mills MD [address] [place] [address] [address] [place] [address] documented as of this encounter Visit Diagnoses Not on filedocumented in this encounter Additional Health Concerns Infection Onset Date Last Indicated Resolved Time COVID-19 03/05/2022 03/05/2022 03/15/2022 7:18 PM EDT Assessment Noted Time PHQ-9 Depression Total Score: 2 11/07/19 19 2:06 PM EDT documented as of this encounter Care Teams Rim Fire Charger Operator Relationship Specialty Start Date End Date Caitlyn [place]ie MD [address] [address] PCP - General Internal Medicine 05/06/21 documented as of this encounter
--- OUTSIDE RECORDS SUMMARY | 2025-04-10 14:13 | XMS_ITS | Encounter Summary ---
Author Organization [facility] and [facility] Address [address] [place] [address] Care Team Providers Care Long Chain Quiller Tender Name Role Phone Caitlyn [place] MD Primary Care Provider +1- [phone] Encounter Details Date Type Department Care Team (Late st Contact Info) Description 12/27/2018 Scanned Document [facility] Health Information Management [address] [place] [address] External, Provider Social History Tobacco Use Types [...] [facility] [address] [facility] [address] [place] [address] Ronald Mills MD [address] [place] [address] [address] [place] [address] documented as of this encounter [...] as of this encounter Care Teams Long Chain Quiller Tender Relationship Specialty Start Date End Date Caitlyn [place]ie MD 3400 [facility] 1 [place] [address] PCP - General Internal Medicine 05/06/21 Henry Kelly MD Pulmonary Department 175 [facility], [address] [place] [address] Physician Pulmonary Disease 09/06/17 06/22/20 documented as of this encounter
--- OUTSIDE RECORDS SUMMARY | 2025-04-10 14:13 | XMS_ITS | Encounter Summary ---
Author Organization [facility] and [facility] Address [address] [place] [address] Care Team Providers Care Insights Strategist Name Role Phone Caitlyn [place] MD Primary Care Provider +1- [phone] Encounter Details Date Type Department Care Team ([facility] st Contact Info) Description 08/26/2014 Documentation [facility] [address] [place] [address] Shilpi Ibarra [address] [place] [address] Social History Tobacco Use Types Packs/Day Years [...] from the original note were not included. [facility] Progress Note This is a 69 y.o. female who was provided services by [facility]. Service Provided By:: Shilpi Ibarra Patient Status: return Length of Appointment: 60 minutes documented in this encounter Plan of Treatment Upcoming Encounters Date Type Department Care Team ([facility] st Contact Info) Description 04/25/2025 4:00 PM EDT Telemedicine [facility] 240 [facility] [address] [place] [address] Ronald Mills MD 240 [facility] Max [address] [place] [address] documented as of this encounter Visit Diagnoses Not on filedocumented in this encounter Additional Health Concerns Infection Onset Date Last Indicated Resolved Time COVID-19 03/05/2022 03/05/2022 03/15/2022 7:18 PM EDT documented as of this encounter Care Teams Insights Strategist Relationship Specialty Start Date End Date Caitlyn [place]ie MD 3400 [facility] 1 [place] [address] PCP - General Internal Medicine 05/06/21 Henry Kelly MD Pulmonary Department 175 [facility], [address] [place] [address] Physician Pulmonary Disease 09/06/17 06/22/20 documented as of this encounter
--- OUTSIDE RECORDS SUMMARY | 2025-04-10 14:13 | XMS_ITS | Encounter Summary ---
Author Organization [facility] Address [address] [place] [address] Care Team Providers Care Parts Chaser Name Role Phone Caitlyn [place]ie MD Primary Care Provider +1- [phone] Encounter Details Date Type Department Care Team (Late st Contact Info) Description 09/09/2024 Scanned Document INTERFACE DEFAULT [address] [place] [address] System, Provider Not In Social History Tobacco [...] [facility] 240 [facility] Building [address] [place], [place] [address] Ronald Mills MD [address] [place] [address] [address] [place] [address] documented as of this encounter [...] as of this encounter Care Teams Parts Chaser Relationship Specialty Start Date End Date Caitlyn [place] MD [address] [address] PCP - General Internal Medicine 05/06/21 documented as of this encounter
--- OUTSIDE RECORDS SUMMARY | 2025-04-10 14:13 | XMS_ITS | Encounter Summary ---
Author Organization [facility] and [facility] Address [address] [place] [address] Care Team Providers Care Conventional Underwriter Name Role Phone Caitlyn [place]ie MD Primary Care Provider +1- [phone] Encounter Details Date Type Department Care Team (Late st Contact Info) Description 07/31/2015 Scanned Document [facility] Health Information Management [address] [place] [address] External, Provider Social History Tobacco Use Types [...] [facility] 240 [facility] Building [address] [place], [place] [address] Ronald Mills MD 240 [facility] Max [address] [place] [address] documented as of this encounter Procedures Procedure Name Priority Date/Time Associated Diagnosis Comments NUC MED/PET RESULT SCAN Routine 07/31/2015 documented in this encounter Results * Nuc Med/PET Result Scan (07/31/2015) us Provider External IMG SCAN REPORTS Edited Result - Final [facility] [place], [place], [facility] documented in this encounter Visit Diagnoses Not on filedocumented in this encounter Additional Health Concerns Infection Onset Date Last Indicated Resolved Time COVID-19 03/05/2022 03/05/2022 03/15/2022 7:1 8 PM EDT documented as of this encounter Care Teams Conventional Underwriter Relationship Specialty Start Date End Date Caitlyn [place] MD 3400 [facility] 1 [place] [address] PCP - General Internal Medicine 05/06/21 Henry Kelly MD Pulmonary Department 175 [facility], [address] [place] [address] Physician Pulmonary Disease 09/06/17 06/22/20 documented as of this encounter
--- OUTSIDE RECORDS SUMMARY | 2025-04-10 14:13 | XMS_ITS | Encounter Summary ---
Author Organization [facility] and [facility] Address 20 [place] [address] Care Team Providers Care Multimedia Producer Name Role Phone Caitlyn [place]ie MD Primary Care Provider +1- [phone] Encounter Details Date Type Department Care Team (Late st Contact Info) Description 01/13/2021 Scanned Document [facility] at [address] [address] External, Provider Social History Tobacco Use Types [...] 240 [facility] Building [address] [place], [place] [address] Ronald Mills MD [address] [place] [address] [address]1 [place] [address] documented as of this encounter [...] as of this encounter Care Teams Multimedia Producer Relationship Specialty Start Date End Date Caitlyn Bowie MD [address] [address] PCP - General Internal Medicine 05/06/21 documented as of this encounter
--- OUTSIDE RECORDS SUMMARY | 2025-04-10 14:13 | XMS_ITS | Encounter Summary ---
Author Organization [facility] and [facility] Address [address] [place] [address] Care Team Providers Care Mill Tender Second Operator Name Role Phone Caitlyn [place]ie MD Primary Care Provider +1- [phone] Encounter Details Date Type Department Care Team (Late st Contact Info) Description 11/09/2020 Scanned Document INTERFACE DEFAULT [address] [place] [address] System, Provider Not In Social History Tobacco [...] [facility] 240 [facility] Building [address] [place] [address] Ronald Mills MD [address] [place] [address] [address]1 [place] [address] documented as of this encounter Visit Diagnoses Not on filedocumented in this encounter Additional Health Concerns Infection Onset Date Last Indicated Resolved Time COVID-19 03/05/2022 03/05/2022 03/15/2022 7:18 PM EDT Assessment Noted Time PHQ-9 Depression Total Score: 2 11/07/19 19 2:06 PM EDT documented as of this encounter Care Teams Mill Tender Second Operator Relationship Specialty Start Date End Date Caitlyn [place]ie MD [address] [address] PCP - General Internal Medicine 05/06/21 documented as of this encounter
--- OUTSIDE RECORDS SUMMARY | 2025-04-10 14:13 | XMS_ITS | Encounter Summary ---
Author Organization [facility] Address [address] [place] [address] Care Team Providers Care Patient Services Technician Name Role Phone Caitlyn Bowie MD Primary Care Provider +1- [phone] Encounter Details Date Type Department Care Team (Late st Contact Info) Description 02/02/2021 Scanned Document INTERFACE DEFAULT [address] [place] [address] System, Provider Not In Social History Tobacco [...] [facility] Building [address] [place] [address] Ronald Mills MD [address] [place] [address] [address] [place] [address] documented as of this encounter [...] as of this encounter Care Teams Patient Services Technician Relationship Specialty Start Date End Date Caitlyn [place] MD [facility] [address] [address] PCP - General Internal Medicine 05/06/21 documented as of this encounter
--- OUTSIDE RECORDS SUMMARY | 2025-04-10 14:13 | XMS_ITS | Encounter Summary ---
Author Organization [facility] Address [address] [place] [address] Care Team Providers Care Internet Sales Representative Name Role Phone Caitlyn Bowie MD Primary Care Provider +1- [phone] Encounter Details Date Type Department Care Team (Late st Contact Info) Description 12/21/2020 Scanned Document INTERFACE DEFAULT [address] [place] [address] System, Provider Not In Social History Tobacco [...] [facility] 240 [facility] Building [address] [place] [address] Ronald Mills MD [address] [place] [address] [address]1 [place] [address] documented as of this encounter Visit Diagnoses Not on filedocumented in this encounter Additional Health Concerns Infection Onset Date Last Indicated Resolved Time COVID-19 03/05/2022 03/05/2022 03/15/2022 7:18 PM EDT Assessment Noted Time PHQ-9 Depression Total Score: 2 11/07/19 19 2:06 PM EDT documented as of this encounter Care Teams Internet Sales Representative Relationship Specialty Start Date End Date Caitlyn [place]ie MD [address] [address] PCP - General Internal Medicine 05/06/21 documented as of this encounter
--- OUTSIDE RECORDS SUMMARY | 2025-04-10 14:13 | XMS_ITS | Encounter Summary ---
Author Organization [facility] and [facility] Address [address] [place] [address] Care Team Providers Care Fire Control Technician Name Role Phone Caitlyn [place]ie MD Primary Care Provider +1- [phone] Encounter Details Date Type Department Care Team (Late st Contact Info) Description 02/03/2021 Scanned Document INTERFACE DEFAULT [address] [place] [address] System, Provider Not In Social History Tobacco [...] [facility] Building [address] [place], [place] [address] Ronald Mills MD [address] [place] [address] [address] [place] [address] documented as of this encounter [...] as of this encounter Care Teams Fire Control Technician Relationship Specialty Start Date End Date Caitlyn [place] MD [address] [address] PCP - General Internal Medicine 05/06/21 documented as of this encounter
--- OUTSIDE RECORDS SUMMARY | 2025-04-10 14:13 | XMS_ITS | Encounter Summary ---
Author Organization [facility] and [facility] Address [address] [place] [address] Care Team Providers Care Screen Door Maker Name Role Phone Caitlyn Bowie MD Primary Care Provider +1- [phone] Encounter Details Date Type Department Care Team (Late st Contact Info) Description 04/28/2015 Scanned Document [facility] Health Information Management [address] [place] [address] External, Provider Social History Tobacco Use Types [...] [facility] 240 [facility] [address] [place], [place] [phone] Ronald Mills MD 240 [facility] [address] [place] [address] documented as of this encounter Visit Diagnoses Not on filedocumented in this encounter Additional Health Concerns Infection Onset Date Last Indicated Resolved Time COVID-19 03/05/2022 03/05/2022 03/15/2022 7:18 PM EDT documented as of this encounter Care Teams Screen Door Maker Relationship Specialty Start Date End Date Caitlyn Bowie MD 3400 [facility] 1 [place] [address] PCP - General Internal Medicine 05/06/21 Henry Kelly MD Pulmonary Department 175 [facility], [address] [place] [address] Physician Pulmonary Disease 09/06/17 06/22/20 documented as of this encounter
--- OUTSIDE RECORDS SUMMARY | 2025-04-10 14:13 | XMS_ITS | Encounter Summary ---
Author Organization [facility] and [facility] Address [address] [place] [address] Care Team Providers Care Appeals Representative Name Role Phone Caitlyn Bowie MD Primary Care Provider +1- [phone] Encounter Details Date Type Department Care Team (Late st Contact Info) Description 09/15/2024 Scanned Document INTERFACE DEFAULT [address] [place] [address] System, Provider Not In Social History Tobacco [...] [facility] Building [address] [place], [place] [phone] Ronald Mills MD [address] [place] [address] [address] [place] [address] documented as of this encounter [...] as of this encounter Care Teams Appeals Representative Relationship Specialty Start Date End Date Caitlyn Bowie MD [address] [address] PCP - General Internal Medicine 05/06/21 documented as of this encounter
--- OUTSIDE RECORDS SUMMARY | 2025-04-10 14:13 | XMS_ITS | Clinical Summary ---
Author Organization [facility] Address [address] [place] [address] Phone Care Team Providers Care Patient Case Coordinator Name Role Phone Caitlyn Bowie MD [...] (12/25/2021 4:22 PM EDT): Followed closely by slip tender-Dr. Ronald Mills at [facility] hematology- advised to continue Coumadin anticoagulation at [...] (09/09/2021 10:42 PM EST): Followed closely by slip tender-Dr. Ronald Mills at [facility] hematology- last seen on 08/05/2021 and advised [...] anticoagulation clinic to keep INR at 1.5-2.0. halfway current use of systemic steroids 09/09 Assessment & Plan (12/10/2021 10:38 AM EDT): Carefully continue alternating low dosing as prescribed by her accounts receivable collector and consider gentle taper when ready. Daily [...] alternating low dosing as prescribed by her accounts receivable collector and consider gentle taper when ready. Daily [...] AM EDT Office Visit [facility] [address] [place] [address] Anna Ellis MD Acquired hypothyroidism (Primary Dx); Hyperparathyroidism; Age-related osteoporosis without current pathological fracture; Adrenal insufficiency 01/12/2025 Refill [facility] [address] [place] [address] Anna Ellsi MD Medication Refill from Last 3 Months [...] 11:40 AM EST Office Visit [facility] [address] [place] [address] [place], [place] [phone] Anna Ellis MD [address] [place] [address] [email or web address] Health Maintenance Due Date Last Done Comments [...] MD LAB BLOOD ORDERABLES F inal Result [facility] [address] [place] [address] from Last 3 Months or Most Recently Relevant to Health Maintenance Insurance MEDICARE PART A & B [facility] MEDEX SUPPLEMENT [facility] Address: [address] [place] [id number] HEALTH SAFETY NET FULL [facility] MEDICARE PART A & B [facility] MEDEX SUPPLEMENT [facility] SAFETY NET FULL MEDICARE PART A & B [facility] MEDEX SUPPLEMENT [facility] SAFETY NET FULL [facility] MEDICARE PART A & B Member Subscriber Plan / Payer (Ef fective 1999-Present) Name:Jovana Malik Member ID:[id number] Relation to Subscriber:Self Name:Jovana Malik Subscriber ID:[id number] Payer ID:[id number] Group ID:Not on file Type:Medicare Address: Responsible City [employer] [facility] [address] [facility] [place] [address] [facility] MEDEX SUPPLEMENT HEALTH SAFETY NET FULL [facility] MEDICARE PART A & B [facility] MEDEX SUPPLEMENT [facility] FULL [facility] MEDICARE PART A & B [facility] MEDEX SUPPLEMENT [facility] FULL [facility] MEDICARE PART A & B [facility] MEDEX SUPPLEMENT [facility] NET FULL [facility] MEDICARE PART A & B [facility] MEDEX SUPPLEMENT [facility] NET FULL [facility] MEDICARE PART A & B [facility] MEDEX SUPPLEMENT HEALTH SAFETY NET FULL [facility] Care Teams Patient Case Coordinator Relationship Specialty Start Date End Date Caitlyn Bowie MD 3400 [place] [address] PCP - General Internal Medicine 09/09/21 Additional Source Comments The information contained in this document represents components of the legal health record. It is not the complete legal health record.[facility]
--- OUTSIDE RECORDS SUMMARY | 2025-04-10 14:13 | XMS_ITS | Encounter Summary ---
Author Organization [facility] Address [address] [place] [address] Care Team Providers Care Tanning Wheel Operator Name Role Phone Caitlyn Bowie MD Primary Care Provider +1- [phone] Encounter Details Date Type Department Care Team (Late st Contact Info) Description 01/27/2021 Scanned Document [facility] at [address] [address] External, Provider Social History Tobacco Use Types [...] [facility] 240 [facility] Building [address] [place], [place] [phone] Ronald Mills MD [address] [place] [address] [address] [place] [address] documented as of this encounter [...] documented as of this encounter Care Teams Tanning Wheel Operator Relationship Specialty Start Date End Date Caitlyn Bowie MD [address] [address] PCP - General Internal Medicine 05/06/21 documented as of this encounter
--- OUTSIDE RECORDS SUMMARY | 2025-04-10 14:13 | XMS_ITS | Encounter Summary ---
Author Organization [facility] and [facility] Address [address] [place] [address] Care Team Providers Care Back Digger Operator Name Role Phone Caitlyn Bowie MD Primary Care Provider +1- [phone] Encounter Details Date Type Department Care Team (Late st Contact Info) Description 04/28/2015 Scanned Document [facility] Health Information Management [address] [place] [address] External, Provider Social History Tobacco Use Types [...] [facility] at [facility] 240 [facility] Building [address] [place], [place] [phone] Ronald Mills MD 240 [facility] [address] [place] [address] documented as of this encounter Procedures Procedure Name Priority Date/Time Associated Diagnosis Comments LAB SCAN Routine 04/28/2015 documented in this encounter Results * Lab Scan (04/28/2015) Blood specimen (specimen) us Provider External LAB BLOOD ORDERABLES Edited Re sult - Final [facility] documented in this encounter Visit Diagnoses Not on filedocumented in this encounter Additional Health Concerns Infection Onset Date Last Indicated Resolved Time COVID-19 03/05/2022 03/05/2022 03/15/2022 7:18 PM EDT documented as of this encounter Care Teams Back Digger Operator Relationship Specialty Start Date End Date Caitlyn Bowie MD 3400 [facility] 1 [place] [address] PCP - General Internal Medicine 05/06/21 Henry Kelly MD Pulmonary Department 175 [facility], [address] [place] [address] Physician Pulmonary Disease 09/06/17 06/22/20 documented as of this encounter
--- OUTSIDE RECORDS SUMMARY | 2025-04-10 14:13 | XMS_ITS | Encounter Summary ---
Author Organization [facility] and [facility] Address [address] [place] [address] Care Team Providers Care Manager Cath Lab Name Role Phone Caitlyn Bowie MD Primary Care Provider +1- [phone] Encounter Details Date Type Department Care Team (Late st Contact Info) Description 12/28/2018 Scanned Document [facility] Health Information Management [address] [place] [address] External, Provider Social History Tobacco Use Types [...] at [facility] 240 [facility] Building [address] [place] [address] Ronald Mills MD [address] [place] [address] [address] [place] [address] documented as of this encounter [...] as of this encounter Care Teams Manager Cath Lab Relationship Specialty Start Date End Date Caitlyn Bowie MD 3400 [facility] Max 1 [place] [address] PCP - General Internal Medicine 05/06/21 Henry Kelly MD Pulmonary Department 175 [facility], [address] [place] [address] Physician Pulmonary Disease 09/06/17 06/22/20 documented as of this encounter
--- OUTSIDE RECORDS SUMMARY | 2025-04-10 14:13 | XMS_ITS | Encounter Summary ---
Author Organization [facility] Address [address] [place] [address] Care Team Providers Care Collet Gluer Name Role Phone Caitlyn Bowie MD Primary Care Provider +1- [phone] Encounter Details Date Type Department Care Team (Late st Contact Info) Description 04/19/2024 Scanned Document INTERFACE DEFAULT [address] [place] [address] System, Provider Not In Social History Tobacco [...] [facility] 240 [facility] Building [address] [place], [place] [address] Ronald Mills MD [address] [place] [address] [address] [place] [address] documented as [...] as of this encounter Care Teams Collet Gluer Relationship Specialty Start Date End Date Caitlyn Bowie MD [address] [address] PCP - General Internal Medicine 05/06/21 documented as of this encounter
--- OUTSIDE RECORDS SUMMARY | 2025-04-10 14:13 | XMS_ITS | Encounter Summary ---
Author Organization [facility] and [facility] Address [address] [place] [address] Care Team Providers Care Welcome Desk Agent Name Role Phone Caitlyn Bowie MD Primary Care Provider +1- [phone] Encounter Details Date Type Department Care Team (Late Contact Info) Description 02/03/2021 Scanned Document [facility] Health Information Management [address] [place] [address] External, Provider Social History Tobacco Use Types [...] 240 [facility] Building [address] [place], [place] [address] Ronald Mills MD [address] [place] [address] [address] [place] [address] documented as of this encounter [...] documented as of this encounter Care Teams Welcome Desk Agent Relationship Specialty Start Date End Date Caitlyn Bowie MD [address] [address] PCP - General Internal Medicine 05/06/21 documented as of this encounter
--- OUTSIDE RECORDS SUMMARY | 2025-04-10 14:13 | XMS_ITS | Encounter Summary ---
Author Organization [facility] and [facility] Address [address] [place] [address] Care Team Providers Care Classified Advertising Manager Name Role Phone Caitlyn Bowie MD Primary Care Provider +1- [phone] Encounter Details Date Type Department Care Team (Late st Contact Info) Description 05/01/2015 Scanned Document [facility] Health Information Management [address] [place] [address] External, Provider Social History Tobacco Use Types [...] [facility] 240 [facility] Building [address] [place], [place] [address] Ronald Mills MD 240 [facility] Max [address] [place] [address] documented as of this encounter [...] documented as of this encounter Care Teams Classified Advertising Manager Relationship Specialty Start Date End Date Caitlyn Bowie MD 3400 [facility] Max 1 [place] [address] PCP - General Internal Medicine 05/06/21 Henry Kelly MD Pulmonary Department 175 [facility], [address] [place] [address] Physician Pulmonary Disease 09/06/17 06/22/20 documented as of this encounter
--- OUTSIDE RECORDS SUMMARY | 2025-04-10 14:13 | XMS_ITS | Encounter Summary ---
Author Organization [facility] Address [address] [place] [address] Care Team Providers Care Foot Caster Name Role Phone Caitlyn Bowie MD Primary Care Provider +1- [phone] Encounter Details Date Type Department Care Team (Late st Contact Info) Description 03/14/2025 Scanned Document [facility] Neurology Ophthalmology [address] [place] [address] Shirley Chaidez PA-C [address] [address] Social History Tobacco Use Types Packs/Day Years [...] on filedocumented in this encounter Care Teams Foot Caster Relationship Specialty Start Date End Date Caitlyn Bowie MD [address] [place] [address] PCP - General Internal Medicine 03/20/23 documented as of this encounter
--- OUTSIDE RECORDS SUMMARY | 2025-04-10 14:13 | XMS_ITS | Encounter Summary ---
Author Organization [facility] Address [address] [place] [address] Care Team Providers Care Soil Surveyor Name Role Phone Caitlyn Bowie MD Primary Care Provider +1- [phone] Encounter Details Date Type Department Care Team (Late st Contact Info) Description 05/14/2015 Scanned Document [facility] Health Information Management [address] [place] [address] External, Provider Social History Tobacco Use Types [...] at [facility] 240 [facility] Building [address] [place], [place] [phone] Ronald Mills MD 240 [facility] A1 [place] [address] documented as of this encounter Visit Diagnoses Not on filedocumented in this encounter Additional Health Concerns Infection Onset Date Last Indicated Resolved Time COVID-19 03/05/2022 03/05/2022 03/15/2022 7:18 PM EDT documented as of this encounter Care Teams Soil Surveyor Relationship Specialty Start Date End Date Caitlyn Bowie MD 3400 [facility] 1 [place] [address] PCP - General Internal Medicine 05/06/21 Henry Kelly MD Pulmonary Department 175 [facility], [address] [place] [address] Physician Pulmonary Disease 09/06/17 06/22/20 documented as of this encounter
--- OUTSIDE RECORDS SUMMARY | 2025-04-10 14:13 | XMS_ITS | Encounter Summary ---
Author Organization [facility] Address [address] [place] [address] Care Team Providers Care Crime Analyst Name Role Phone Caitlyn Bowie MD Primary Care Provider +1- [phone] Encounter Details Date Type Department Care Team (Late st Contact Info) Description 06/25/2015 Scanned Document [facility] Health Information Management [address] [place] [address] External, Provider Social History Tobacco Use [...] [facility] Building [address] [place], [place] [address] Ronald Mills MD 240 [facility] A1 [place] [address] documented as of this encounter Visit Diagnoses Not on filedocumented in this encounter Additional Health Concerns Infection Onset Date Last Indicated Resolved Time COVID-19 03/05/2022 03/05/2022 03/15/2022 7:18 PM EDT documented as of this encounter Care Teams Crime Analyst Relationship Specialty Start Date End Date Caitlyn Bowie MD 3400 [facility] 1 [place] [address] PCP - General Internal Medicine 05/06/21 Henry Kelly MD Pulmonary Department 175 [facility], [address] [place] [address] Physician Pulmonary Disease 09/06/17 06/22/20 documented as of this encounter
--- OUTSIDE RECORDS SUMMARY | 2025-04-10 14:13 | XMS_ITS | Encounter Summary ---
Author Organization [facility] and [facility] Address [address] [place] [address] Care Team Providers Care Motor Pool Clerk Name Role Phone Caitlyn Bowie MD Primary Care Provider +1- [phone] Encounter Details Date Type Department Care Team (Late st Contact Info) Description 02/08/2021 Scanned Document INTERFACE DEFAULT [address] [place] [address] System, Provider Not In Social History Tobacco [...] [facility] at [facility] 240 [facility] Building [address] [place] [address] Ronald Mills MD [address] [place] [address] [address] [place] [address] documented as of this encounter Visit Diagnoses Not on filedocumented in this encounter Additional Health Concerns Infection Onset Date Last Indicated Resolved Time COVID-19 03/05/2022 03/05/2022 03/15/2022 7:18 PM EDT Assessment Noted Time PHQ-9 Depression Total Score: 2 11/07/19 19 2:06 PM EDT documented as of this encounter Care Teams Motor Pool Clerk Relationship Specialty Start Date End Date Caitlyn Bowie MD [address] [address] PCP - General Internal Medicine 05/06/21 documented as of this encounter
--- OUTSIDE RECORDS SUMMARY | 2025-04-10 14:13 | XMS_ITS | Clinical Summary ---
Author Organization [facility], Address [address] [place] [address] [place] [address] Phone Care Team Providers Care Certifier Name Role Phone Caitlyn Bowie MD Primary Care Provider +1- [phone] Allergies Active Allergy Reactions Criticality Noted Date [...] Only [facility] [address] [place] [address] Marina Abdi 03/17/2025 Documentation Only [facility] [address] [place] [address] Marina Abdi 03/17/2025 Office Communication [facility] [address] [place] [address] Marina Abdi 03/17/2025 Orders Only [facility], [address] [place] [address] Marina Abdi Smells of urine [...] Visit [facility], [address] [place] [address] Rubén Ashraf MD [address] [facility] [place] [address] Health Maintenance Due Date Last Done Comments Influenza Vaccine (#1) 2025 0, 04/22/2019, 04/18/2016 Pneumococcal Vaccine: 50+ Years Completed 08/31/2021, 03/25/2016, 09/17/2015, Additional history exists Hepatitis B Vaccine Aged Out No longe r eligible based on patient's age to complete this topic Insurance Medicare [facility] Care Teams Certifier Relationship Specialty Start Date End Date Caitlyn Bowie MD [address] [place], [place] PCP - General Internal Medicine 09/24/24
--- OUTSIDE RECORDS SUMMARY | 2025-04-10 14:13 | XMS_ITS | Encounter Summary ---
Author Organization [facility] and [facility] Address [address] [place] [address] Care Team Providers Care Processing Rep Name Role Phone Caitlyn Bowie MD Primary Care Provider +1- [phone] Encounter Details Date Type Department Care Team (Late st Contact Info) Description 02/11/2021 Scanned Document INTERFACE DEFAULT [address] [place] [address] System, Provider Not In Social History Tobacco [...] [facility] Building [address] [place] [address] Ronald Mills MD [address] [place] [address] [address] [place] [address] documented as of this encounter [...] as of this encounter Care Teams Processing Rep Relationship Specialty Start Date End Date Caitlyn Bowie MD [address] [address] PCP - General Internal Medicine 05/06/21 documented as of this encounter
--- OUTSIDE RECORDS SUMMARY | 2025-04-10 14:13 | XMS_ITS | Encounter Summary ---
Author Organization [facility] Address 20 [place] [address] Care Team Providers Care Digital Content Coordinator Name Role Phone Caitlyn Bowie MD Primary Care Provider +1- [phone] Encounter Details Date Type Department Care Team (Late st Contact Info) Description 01/13/2021 Scanned Document Cancer Center at [address] [address] Ronald Mills MD [address] [address] Social History Tobacco Use Types [...] PM EDT Telemedicine Cancer Center at [address] [place] [address] Ronald Mills MD [address] [address] documented as of this encounter [...] as of this encounter Care Teams Digital Content Coordinator Relationship Specialty Start Date End Date Caitlyn Bowie MD [address] [address] PCP - General Internal Medicine 05/06/21 documented as of this encounter
--- OUTSIDE RECORDS SUMMARY | 2025-04-10 14:13 | XMS_ITS | Encounter Summary ---
Author Organization [facility] Address [address] [place] [address] Care Team Providers Care Yard Pilot Name Role Phone Caitlyn Bowie MD Primary Care Provider +1- [phone] Encounter Details Date Type Department Care Team (Late st Contact Info) Description 09/23/2024 Scanned Document INTERFACE DEFAULT [address] [place] [address] System, Provider Not In Social History Tobacco [...] [facility] Building [address] [place], [place] [address] Ronald Mills MD [address] [place] [address] [address] [place] [address] documented as of this encounter [...] End Date Caitlyn Bowie MD [address] [address] PCP - General Internal Medicine 05/06/21 documented as of this encounter
--- OUTSIDE RECORDS SUMMARY | 2025-04-10 14:13 | XMS_ITS | Encounter Summary ---
Author Organization [facility] Address [address] [place] [address] Care Team Providers Care Booking Clerk Name Role Phone Caitlyn Bowie MD Primary Care Provider +1- [phone] Encounter Details Date Type Department Care Team (Late st Contact Info) Description 02/07/2021 Scanned Document INTERFACE DEFAULT [address] [place] [address] System, Provider Not In Social History Tobacco [...] [facility] Building [address] [place], [place] [address] Ronald Mills MD [address] [place] [address] [address] [place] [address] documented as of this encounter [...] documented as of this encounter Care Teams Booking Clerk Relationship Specialty Start Date End Date Caitlyn Bowie MD [address] [address] PCP - General Internal Medicine 05/06/21 documented as of this encounter
--- OUTSIDE RECORDS SUMMARY | 2025-04-10 14:13 | XMS_ITS | Encounter Summary ---
Author Organization [facility] and [facility] Address [address] [place] [phone] Care Team Providers Care Elastic Yarn Twister Name Role Phone Caitlyn Bowie MD Primary Care Provider +1- [phone] Reason for Visit * Reason Comments Other Encounter Details Date Type Department Care Team (Late st Contact Info) Description 01/12/2021 Telephone [facility] at [address] - [address] [phone] Ronald Mills MD [address] [place] [phone] Other Social History Tobacco Use Types [...] AM EDT Lab orders were faxed to [facility] @ [phone]. Patient notified by phone. * Telephone Encounter - Kathleen Nasima - 01/12/2021 8:46 AM EDT Pt called looking to speak with Kirstin RE: lab orders sent to lab [facility] lab Looking to have labs sent there A.S.A.P at some point today She is scheduled with Dr. Mills on January 28 documented in this encounter Plan of Treatment Upcoming Encounters Date Type Department Care Team (Late st Contact Info) Description 04/25/2025 4:00 PM EDT Telemedicine Cancer Center at [facility] 240 [facility] Building [address] [place], [place] [phone] Ronald Mills MD 240 [facility] Max [address] [place] [address] documented as of this encounter Visit Diagnoses Not on filedocumented in this encounter Additional Health Concerns Infection Onset Date Last Indicated Resolved Time COVID-19 03/05/2022 03/05/2022 03/15/2022 7:18 PM EDT Assessment Noted Time PHQ-9 Depression Total Score: 2 11/07/19 19 2:06 PM EDT documented as of this encounter Care Teams Elastic Yarn Twister Relationship Specialty Start Date End Date Caitlyn Bowie MD [address] [address] PCP - General Internal Medicine 05/06/21 documented as of this encounter
--- OUTSIDE RECORDS SUMMARY | 2025-04-10 14:14 | XMS_ITS | Encounter Summary ---
Author Organization [facility] and [facility] Address [address] [place] [phone] Care Team Providers Care Bodywork Therapist Name Role Phone Caitlyn Bowie MD Primary Care Provider +1- [phone] Encounter Details Date Type Department Care Team (Late st Contact Info) Description 11/09/2014 Scanned Document [facility] Health Information Management [address] [place] [phone] External, Provider Social History Tobacco Use Types [...] [facility] 240 [facility] Building [address] [place], [place] [phone] Ronald Mills MD 240 [facility] A1 [place] [address] documented as of this encounter Visit Diagnoses Not on filedocumented in this encounter Additional Health Concerns Infection Onset Date Last Indicated Resolved Time COVID-19 03/05/2022 03/05/2022 03/15/2022 7:18 PM EDT documented as of this encounter Care Teams Bodywork Therapist Relationship Specialty Start Date End Date Caitlyn Bowie MD 3400 [facility] 1 [place] [address] PCP - General Internal Medicine 05/06/21 Henry Kelly MD Pulmonary Department 175 [facility], [address] [place] [address] Physician Pulmonary Disease 09/06/17 06/22/20 documented as of this encounter
--- OUTSIDE RECORDS SUMMARY | 2025-04-10 14:14 | XMS_ITS | Encounter Summary ---
Author Organization [facility] and [facility] Address [address] [place] [phone] Care Team Providers Care Clinical Pathologist Name Role Phone Caitlyn Bowie MD Primary Care Provider +1- [phone] Encounter Details Date Type Department Care Team (Late st Contact Info) Description 01/28/2018 Scanned Document [facility] Health Information Management [address] [place] [address] External, Provider Social History Tobacco Use Types [...] [facility] 240 [facility] Building [address] [place], [place] [phone] Ronald Mills MD [address] [place] [address] [address] [place] [address] documented as of this encounter [...] Caitlyn Bowie MD [facility] 1 [place] [address] PCP - General Internal Medicine 05/06/21 Henry Kelly MD Pulmonary Department 175 [facility], [address] [place] [address] Physician Pulmonary Disease 09/06/17 06/22/20 documented as of this encounter
--- OUTSIDE RECORDS SUMMARY | 2025-04-10 14:14 | XMS_ITS | Encounter Summary ---
Author Organization [facility] and [facility] Address [address] [place] [phone] Care Team Providers Care Tie Bucker Name Role Phone Caitlyn Bowie MD Primary Care Provider +1- [phone] Encounter Details Date Type Department Care Team (Late st Contact Info) Description 04/08/2024 Scanned Document INTERFACE DEFAULT [address] [place] [address] System, Provider Not In Social History Tobacco [...] [facility] at [facility] 240 [facility] Building [address] [place], [place] [phone] Ronald Mills MD [address] [place] [address] [address] [place] [address] documented as of this encounter [...] as of this encounter Care Teams Tie Bucker Relationship Specialty Start Date End Date Caitlyn Bowie MD [address] [address] PCP - General Internal Medicine 05/06/21 documented as of this encounter
--- OUTSIDE RECORDS SUMMARY | 2025-04-10 14:14 | XMS_ITS | Encounter Summary ---
Author Organization [facility] and [facility] Address [address] [place] [phone] Care Team Providers Care Prosthetic Technician Name Role Phone Caitlyn Bowie MD Primary Care Provider +1- [phone] Encounter Details Date Type Department Care Team (Late st Contact Info) Description 06/17/2016 Scanned Document [facility] Health Information Management [address] [place] [address] External, Provider Social History Tobacco Use Types [...] [facility] Building [address] [place], [place] [phone] Ronald Mills MD 240 [facility] A1 [place] [address] documented as of this encounter Visit Diagnoses Not on filedocumented in this encounter Additional Health Concerns Infection Onset Date Last Indicated Resolved Time COVID-19 03/05/2022 03/05/2022 03/15/2022 7:18 PM EDT documented as of this encounter Care Teams Prosthetic Technician Relationship Specialty Start Date End Date Caitlyn Bowie MD 3400 [facility] 1 [place] [address] PCP - General Internal Medicine 05/06/21 Henry Kelly MD Pulmonary Department 175 [facility], [address] [place] [address] Physician Pulmonary Disease 09/06/17 06/22/20 documented as of this encounter
--- OUTSIDE RECORDS SUMMARY | 2025-04-10 14:14 | XMS_ITS | Encounter Summary ---
Author Organization [facility] and [facility] Address [address] [place] [address] Care Team Providers Care Asbestos Removal Worker Name Role Phone Caitlyn Bowie MD Primary Care Provider +1- [phone] Encounter Details Date Type Department Care Team (Late st Contact Info) Description 03/26/2015 Scanned Document Cardiovascular Medicine at [address] [place] [address] Norma Renee MD [address] [place] [phone] Social History Tobacco Use Types Packs/Day Years [...] PM EDT Telemedicine Cancer Center at [address] [place], [place] [phone] Ronald Mills MD 240 [facility] A1 [place] [address] documented as of this encounter Visit Diagnoses Not on filedocumented in this encounter Additional Health Concerns Infection Onset Date Last Indicated Resolved Time COVID-19 03/05/2022 03/05/2022 03/15/2022 7:18 PM EDT documented as of this encounter Care Teams Asbestos Removal Worker Relationship Specialty Start Date End Date Caitlyn Bowie MD 3400 [facility] Max 1 [place] [address] PCP - General Internal Medicine 05/06/21 Henry Kelly MD Pulmonary Department 175 [facility], [address] [place] [address] Physician Pulmonary Disease 09/06/17 06/22/20 documented as of this encounter
--- OUTSIDE RECORDS SUMMARY | 2025-04-10 14:14 | XMS_ITS | Encounter Summary ---
Author Organization [facility] and [facility] Address [address] [place] [address] Care Team Providers Care Lab Director Name Role Phone Caitlyn Bowie MD Primary Care Provider +1- [phone] Encounter Details Date Type Department Care Team (Late st Contact Info) Description 04/04/2016 Scanned Document [facility] Health Information Management [address] [place] [address] External, Provider Social History Tobacco Use Types [...] at [facility] 240 [facility] Building [address] [place], [place] [phone] Ronald Mills MD 240 [facility] Max [address] [place] [address] documented as of this encounter Procedures Procedure Name Priority Date/Time Associated Diagnosis Comments LAB SCAN Routine 04/04/2016 documented in this encounter Results * Lab Scan (04/04/2016) Blood specimen (specimen) us Provider External LAB BLOOD ORDERABLES Final Res ult [facility] documented in this encounter Visit Diagnoses Not on filedocumented in this encounter Additional Health Concerns Infection Onset Date Last Indicated Resolved Time COVID-19 03/05/2022 03/05/2022 03/15/2022 7:18 PM EDT documented as of this encounter Care Teams Lab Director Relationship Specialty Start Date End Date Caitlyn Bowie MD 3400 [facility] 1 [place] [address] PCP - General Internal Medicine 05/06/21 Henry Kelly MD Pulmonary Department 175 [facility], [address] [place] [address] Physician Pulmonary Disease 09/06/17 06/22/20 documented as of this encounter
--- OUTSIDE RECORDS SUMMARY | 2025-04-10 14:14 | XMS_ITS | Encounter Summary ---
Author Organization [facility] and [facility] Address [address] [place] [address] Care Team Providers Care Mop Machine Operator Name Role Phone Caitlyn Bowie MD Primary Care Provider +1- [phone] Encounter Details Date Type Department Care Team (Late st Contact Info) Description 03/13/2015 Scanned Document [facility] Health Information Management [address] [place] [address] External, Provider Social History Tobacco Use Types [...] [facility] Building [address] [place], [place] [phone] Ronald Mills MD 240 [facility] Max [address] [place] [address] documented as of this encounter Procedures Procedure Name Priority Date/Time Associated Diagnosis Comments LAB SCAN Routine 02/16/2015 LAB SCAN Routine 02/16/2015 documented in this encounter Results * Lab Scan (02/16/2015) Blood specimen (specimen) us Provider External LAB BLOOD ORDERABLES Final Res ult Performing Organization Address [facility]/ZIP Co de Phone Number [facility] * Lab Scan (02/16/2015) Blood specimen (specimen) Provider External LAB BLOOD ORDERABLES Final Res ult Performing Organization Address [facility] Co de Phone Number [facility] documented in this encounter Visit Diagnoses Not on filedocumented in this encounter Additional Health Concerns Infection Onset Date Last Indicated Resolved Time COVID-19 03/05/2022 03/05/2022 03/15/2022 7:18 PM EDT documented as of this encounter Care Teams Mop Machine Operator Relationship Specialty Start Date End Date Caitlyn Bowie MD 3400 [facility] 1 [place] [address] PCP - General Internal Medicine 05/06/21 Henry Kelly MD Pulmonary Department 175 [facility], [address] [place] [address] Physician Pulmonary Disease 09/06/17 06/22/20 documented as of this encounter
--- OUTSIDE RECORDS SUMMARY | 2025-04-10 14:14 | XMS_ITS | Encounter Summary ---
Author Organization [facility] and [facility] Address [address] [place] [address] Care Team Providers Care Propagator Name Role Phone Caitlyn Bowie MD Primary Care Provider +1- [phone] Encounter Details Date Type Department Care Team (Late st Contact Info) Description 10/10/2016 Scanned Document [facility] Health Information Management [address] [place] [address] External, Provider Social History Tobacco Use Types [...] [facility] 240 [facility] Building [address] [place], [place] [phone] Ronald Mills MD 240 [facility] A1 [place] [address] documented as of this encounter Visit Diagnoses Not on filedocumented in this encounter Additional Health Concerns Infection Onset Date Last Indicated Resolved Time COVID-19 03/05/2022 03/05/2022 03/15/2022 7:18 PM EDT documented as of this encounter Care Teams Propagator Relationship Specialty Start Date End Date Caitlyn Bowie MD 3400 [facility] 1 [place] [address] PCP - General Internal Medicine 05/06/21 Henry Kelly MD Pulmonary Department 175 [facility], [address] [place] [address] Physician Pulmonary Disease 09/06/17 06/22/20 documented as of this encounter
--- OUTSIDE RECORDS SUMMARY | 2025-04-10 14:14 | XMS_ITS | Encounter Summary ---
Author Organization [facility] and [facility] Address [address] [place] [phone] Care Team Providers Care Clay Temperer Name Role Phone Caitlyn Bowie MD Primary Care Provider +1- [phone] Encounter Details Date Type Department Care Team (Late st Contact Info) Description 02/01/2018 Scanned Document [facility] Health Information Management [address] [place] [address] External, Provider Social History Tobacco Use Types [...] at [facility] 240 [facility] Building [address] [place], [place] [phone] Ronald Mills MD [address] [place] [address] [address] [place] [address] documented as of this encounter [...] as of this encounter Care Teams Clay Temperer Relationship Specialty Start Date End Date Caitlyn Bowie MD 3400 [facility] 1 [place] [address] PCP - General Internal Medicine 05/06/21 Henry Kelly MD Pulmonary Department [address] [facility], [address] [place] [address] Physician Pulmonary Disease 09/06/17 06/22/20 documented as of this encounter
--- OUTSIDE RECORDS SUMMARY | 2025-04-10 14:14 | XMS_ITS | Encounter Summary ---
Author Organization [facility] and [facility] Address [address] [place] [phone] Care Team Providers Care Concrete Block Plant Supervisor Name Role Phone Caitlyn Bowie MD Primary Care Provider +1- [phone] Encounter Details Date Type Department Care Team (Late st Contact Info) Description 02/19/2015 Scanned Document [facility] Health Information Management [address] [place] [address] External, Provider Social History Tobacco Use Types [...] Cancer Center at [facility] 240 [facility] Building [address] [place], [place] [phone] Ronald Mills MD 240 [facility] Max [address] [place] [address] documented as of this encounter Procedures Procedure Name Priority Date/Time Associated Diagnosis Comments LAB SCAN Routine 02/19/2015 documented in this encounter Results * Lab Scan (02/19/2015) Blood specimen (specimen) us Provider External LAB BLOOD ORDERABLES Final Res ult [facility] documented in this encounter Visit Diagnoses Not on filedocumented in this encounter Additional Health Concerns Infection Onset Date Last Indicated Resolved Time COVID-19 03/05/2022 03/05/2022 03/15/2022 7:18 PM EDT documented as of this encounter Care Teams Concrete Block Plant Supervisor Relationship Specialty Start Date End Date Caitlyn Bowie MD 3400 [facility] 1 [place] [address] PCP - General Internal Medicine 05/06/21 Henry Kelly MD Pulmonary Department 175 [facility], [address] [place] [address] Physician Pulmonary Disease 09/06/17 06/22/20 documented as of this encounter
--- OUTSIDE RECORDS SUMMARY | 2025-04-10 14:14 | XMS_ITS | Encounter Summary ---
Author Organization [facility] and [facility] Address [address] [place] [phone] Care Team Providers Care Unit Aid Name Role Phone Caitlyn Bowie MD Primary Care Provider +1- [phone] Encounter Details Date Type Department Care Team (Late st Contact Info) Description 01/28/2018 Scanned Document [facility] Health Information Management [address] [place] [address] External, Provider Social History Tobacco Use Types [...] at [facility] 240 [facility] Building [address] [place], [place] [phone] Ronald Mills MD 240 [facility] A1 [place] [address] documented as of this encounter Visit Diagnoses Not on filedocumented in this encounter Additional Health Concerns Infection Onset Date Last Indicated Resolved Time COVID-19 03/05/2022 03/05/2022 03/15/2022 7:18 PM EDT documented as of this encounter Care Teams Unit Aid Relationship Specialty Start Date End Date Caitlyn Bowie MD 3400 [facility] 1 [place] [address] PCP - General Internal Medicine 05/06/21 Henry Kelly MD Pulmonary Department 175 [facility], [address] [place] [address] Physician Pulmonary Disease 09/06/17 06/22/20 documented as of this encounter
--- OUTSIDE RECORDS SUMMARY | 2025-04-10 14:14 | XMS_ITS | Encounter Summary ---
Author Organization [facility] and [facility] Address [address] [place] [address] Care Team Providers Care Steno Typist Name Role Phone Caitlyn Bowie MD Primary Care Provider +1- [phone] Encounter Details Date Type Department Care Team (Late st Contact Info) Description 01/26/2018 Scanned Document [facility] Health Information Management [address] [place] [address] External, Provider Social History Tobacco Use Types [...] [facility] Building [address] [place], [place] [phone] Ronald Mills MD 240 [facility] A1 [place] [address] documented as of this encounter [...] documented as of this encounter Care Teams Steno Typist Relationship Specialty Start Date End Date Caitlyn Bowie MD 3400 [facility] 1 [place] [address] PCP - General Internal Medicine 05/06/21 Henry Kelly MD Pulmonary Department 175 [facility], [address] [place] [address] Physician Pulmonary Disease 09/06/17 06/22/20 documented as of this encounter
--- OUTSIDE RECORDS SUMMARY | 2025-04-10 14:14 | XMS_ITS | Encounter Summary ---
Author Organization [facility] and [facility] Address [address] [place] [address] Care Team Providers Care Health And Wellness Sales Consultant Name Role Phone Caitlyn Bowie MD Primary Care Provider +1- [phone] Encounter Details Date Type Department Care Team (Late st Contact Info) Description 12/14/2016 Scanned Document [facility] Health Information Management [address] [place] [address] External, Provider Social History Tobacco Use Types [...] [facility] 240 [facility] Building [address] [place], [place] [phone] Ronald Mills MD 240 [facility] [address] [place] [address] documented as of this encounter [...] this encounter Care Teams Health And Wellness Sales Consultant Relationship Specialty Start Date End Date Caitlyn Bowie MD 3400 [facility] 1 [place] [address] PCP - General Internal Medicine 05/06/21 Henry Kelly MD Pulmonary Department 175 [facility], [address] [place] [address] Physician Pulmonary Disease 09/06/17 06/22/20 documented as of this encounter
--- OUTSIDE RECORDS SUMMARY | 2025-04-10 14:14 | XMS_ITS | Encounter Summary ---
Author Organization [facility] and [facility] Address [address] [place] [address] Care Team Providers Care Parts Counter Associate Name Role Phone Caitlyn Bowie MD Primary Care Provider +1- [phone] Reason for Referral * Imaging (Routine) - Closed Specialty Diagnoses / Procedures Referred By Contac t Referred To Contact Procedures [place] Lung Ventilation Perfusion ([facility]) External, Provider Referral ID Status Reason Start Date Expiration Date Visits Re quested Visits Authorized [id number] Closed 08/22/2016 08/22/2017 4 4 Encounter Details Date Type Department Care Team (Late st Contact Info) Description 08/22/2016 Scanned Document Thoracic Oncology Program at [address] [address] External, Provider Social History Tobacco Use Types [...] PM EDT Telemedicine Cancer Center at [address] [place] [address] Ronald Mills MD [address] [place] [address] Rd [address] [place] [phone] documented as of this encounter Procedures Procedure Name Priority Date/Time Associated Diagnosis Comments XRAY RESULT SCAN Routine 07/27/2016 CT RESULT SCAN Routine 07/27/2016 CT RESULT SCAN Routine 07/27/2016 CARDIAC EKG RESULT SCAN Routine 07/27/2016 LAB SCAN Routine 07/27/2016 NM LUNG VENTILATION PERFUSIO N ([facility]) Routine 07/27/2016 documented in this encounter Results * Xray Result Scan (07/27/2016) us Provider External IMG SCAN REPORTS Final Result Performing Organization Address [facility] Co de Phone Number [facility] * CT Result Scan (07/27/2016) us Provider External IMG SCAN REPORTS Final Result Performing Organization Address [facility] Co de Phone Number [facility] * Cardiac EKG Result Scan (07/27/2016) us Provider External CV CARDIAC REPORT (CVR) Final Result Performing Organization Address [facility] Co de Phone Number [facility] * CT Result Scan (07/27/2016) us Provider External IMG SCAN REPORTS Final Result Performing Organization Address [facility] Co de Phone Number [facility] * Lab Scan (07/27/2016) Blood specimen (specimen) us Provider External LAB BLOOD ORDERABLES Final Res ult Performing Organization Address [facility] Co de Phone Number [facility] * NM Lung Ventilation Perfusion ([facility]) (07/27/2016) Anatomical Region Laterality Modality Chest, Lung Nuclear Medicine us Provider External IMG NM ORDERABLES Final Result documented in this encounter Visit Diagnoses Not on filedocumented in this encounter Additional Health Concerns Infection Onset Date Last Indicated Resolved Time COVID-19 03/05/2022 03/05/2022 03/15/2022 7:18 PM EDT documented as of this encounter Care Teams Parts Counter Associate Relationship Specialty Start Date End Date Caitlyn Bowie MD 3400 [facility] 1 [place] [address] PCP - General Internal Medicine 05/06/21 Hnery Kelly MD Pulmonary Department 175 [facility], [address] [place] [address] Physician Pulmonary Disease 09/06/17 06/22/20 documented as of this encounter
--- OUTSIDE RECORDS SUMMARY | 2025-04-10 14:14 | XMS_ITS | Encounter Summary ---
Author Organization [facility] and [facility] Address [address] [place] [address] Care Team Providers Care Flipping Machine Operator Name Role Phone Caitlyn Bowie MD Primary Care Provider +1- [phone] Encounter Details Date Type Department Care Team (Late st Contact Info) Description 07/27/2016 Scanned Document Thoracic Oncology Program at [address] [address] Suzy Kong MD [address] [place] [phone] Social History Tobacco Use Types Packs/Day [...] PM EDT Telemedicine Cancer Center at [address] [place], [place] [phone] Ronald Mills MD 240 [facility] Max [address] [place] [address] documented as of this encounter Visit Diagnoses Not on filedocumented in this encounter Additional Health Concerns Infection Onset Date Last Indicated Resolved Time COVID-19 03/05/2022 03/05/2022 03/15/2022 7:18 PM EDT documented as of this encounter Care Teams Flipping Machine Operator Relationship Specialty Start Date End Date Caitlyn Bowie MD 3400 [facility] Max 1 [place] [address] PCP - General Internal Medicine 05/06/21 Henry Kelly MD Pulmonary Department 175 [facility], [address] [place] [address] Physician Pulmonary Disease 09/06/17 06/22/20 documented as of this encounter
--- OUTSIDE RECORDS SUMMARY | 2025-04-10 14:14 | XMS_ITS | Encounter Summary ---
Author Organization [facility] and [facility] Address [address] [place] [address] Care Team Providers Care Musical String Maker Name Role Phone Caitlyn Bowie MD Primary Care Provider +1- [phone] Encounter Details Date Type Department Care Team (Late st Contact Info) Description 02/02/2018 Scanned Document [facility] Health Information Management [address] [place] [address] External, Provider Social History Tobacco Use Types [...] [facility] 240 [facility] Building [address] [place], [place] [phone] Ronald Mills MD [address] [facility] A1 [place] [address] documented as of this encounter Visit Diagnoses Not on filedocumented in this encounter Additional Health Concerns Infection Onset Date Last Indicated Resolved Time COVID-19 03/05/2022 03/05/2022 03/15/2022 7:18 PM EDT documented as of this encounter Care Teams Musical String Maker Relationship Specialty Start Date End Date Caitlyn Bowie MD 3400 [facility] 1 [place] [address] PCP - General Internal Medicine 05/06/21 Henry Kelly MD Pulmonary Department 175 [facility], [address] [place] [address] Physician Pulmonary Disease 09/06/17 06/22/20 documented as of this encounter
--- OUTSIDE RECORDS SUMMARY | 2025-04-10 14:14 | XMS_ITS | Encounter Summary ---
Author Organization [facility] and [facility] Address [address] [place] [address] Care Team Providers Care Box Fabricator Name Role Phone Caitlyn Bowie MD Primary Care Provider +1- [phone] Encounter Details Date Type Department Care Team (Late st Contact Info) Description 01/27/2018 Scanned Document [facility] Health Information Management [address] [place] [address] External, Provider Social History Tobacco Use Types [...] [facility] at [facility] 240 [facility] [address] [place], [place] [phone] Ronald Mills MD 240 [facility] [address]1 [place] [address] documented as of this encounter Visit Diagnoses Not on filedocumented in this encounter Additional Health Concerns Infection Onset Date Last Indicated Resolved Time COVID-19 03/05/2022 03/05/2022 03/15/2022 7:18 PM EDT documented as of this encounter Care Teams Box Fabricator Relationship Specialty Start Date End Date Caitlyn Bowie MD 3400 [facility] 1 [place] [address] PCP - General Internal Medicine 05/06/21 Henry Kelly MD Pulmonary Department 175 [facility], [address] [place] [address] Physician Pulmonary Disease 09/06/17 06/22/20 documented as of this encounter
--- OUTSIDE RECORDS SUMMARY | 2025-04-10 14:14 | XMS_ITS | Encounter Summary ---
Author Organization [facility] Address [address] [place] [address] Care Team Providers Care Linux Support Engineer Name Role Phone Caitlyn Bowie MD Primary Care Provider +1- [phone] Encounter Details Date Type Department Care Team (Late st Contact Info) Description 01/26/2018 Scanned Document [facility] Health Information Management [address] [place] [address] External, Provider Social History Tobacco Use Types [...] at [facility] 240 [facility] [address] [place] [address] Ronald Mills MD 240 [facility] [address]1 [place] [address] documented as of this encounter [...] as of this encounter Care Teams Linux Support Engineer Relationship Specialty Start Date End Date Caitlyn Bowie MD 3400 [facility] 1 [place] [address] PCP - General Internal Medicine 05/06/21 Henry Kelly MD Pulmonary Department 175 [facility], [address] [place] [address] Physician Pulmonary Disease 09/06/17 06/22/20 documented as of this encounter
--- OUTSIDE RECORDS SUMMARY | 2025-04-10 14:14 | XMS_ITS | Encounter Summary ---
Author Organization [facility] and [facility] Address [address] [place] [address] Care Team Providers Care Nurse Executive Name Role Phone Caitlyn Bowie MD Primary Care Provider +1- [phone] Encounter Details Date Type Department Care Team (Late st Contact Info) Description 02/02/2018 Scanned Document [facility] Health Information Management [address] [place] [address] External, Provider Social History Tobacco Use Types [...] at [facility] 240 [facility] Building [address] [place], [place] [phone] Ronald Mills MD [address] [place] [address] [address] [place] [address] documented as of this encounter [...] as of this encounter Care Teams Nurse Executive Relationship Specialty Start Date End Date Caitlyn Bowie MD 3400 [facility] 1 [place] [address] PCP - General Internal Medicine 05/06/21 Henry Kelly MD Pulmonary Department 175 [facility], [address] [place] [address] Physician Pulmonary Disease 09/06/17 06/22/20 documented as of this encounter
--- OUTSIDE RECORDS SUMMARY | 2025-04-10 14:14 | XMS_ITS | Encounter Summary ---
Author Organization [facility] and [facility] Address [address] [place] [address] Care Team Providers Care Title Attorney Name Role Phone Caitlyn [place]ie MD Primary Care Provider +1- [phone] Encounter Details Date Type Department Care Team (Late st Contact Info) Description 03/11/2015 Scanned Document [facility] Health Information Management [address] [place] [address] External, Provider Social History Tobacco Use Types [...] [facility] 240 [facility] Building [address] [place], [place] [phone] Ronald Mills MD 240 [facility] [address] [place] [address] documented as of this encounter Procedures Procedure Name Priority Date/Time Associated Diagnosis Comments LAB SCAN Routine 03/11/2015 documented in this encounter Results * Lab Scan (03/11/2015) Blood specimen (specimen) us Provider External LAB BLOOD ORDERABLES Edited Re sult - Final [facility] documented in this encounter Visit Diagnoses Not on filedocumented in this encounter Additional Health Concerns Infection Onset Date Last Indicated Resolved Time COVID-19 03/05/2022 03/05/2022 03/15/2022 7:18 PM EDT documented as of this encounter Care Teams Title Attorney Relationship Specialty Start Date End Date Caitlyn Bowie MD 3400 [facility] 1 [place] [address] PCP - General Internal Medicine 05/06/21 Henry Kelly MD Pulmonary Department 175 [facility], [address] [place] [address] Physician Pulmonary Disease 09/06/17 06/22/20 documented as of this encounter
--- OUTSIDE RECORDS SUMMARY | 2025-04-10 14:14 | XMS_ITS | Encounter Summary ---
Author Organization [facility] and [facility] Address [address] [place] [address] Care Team Providers Care Interstate Planner Name Role Phone Caitlyn Bowie MD Primary Care Provider +1- [phone] Encounter Details Date Type Department Care Team (Late st Contact Info) Description 12/16/2016 Scanned Document [facility] Health Information Management [address] [place] [address] External, Provider Social History Tobacco Use Types [...] [facility] 240 [facility] Building [address] [place], [place] [phone] Ronald Mills MD 240 [facility] [address] [place] [address] documented as [...] Bowie MD 3400 [facility] 1 [place] [address] PCP - General Internal Medicine 05/06/21 Henry Kelly MD Pulmonary Department 175 [facility], [address] [place] [address] Physician Pulmonary Disease 09/06/17 06/22/20 documented as of this encounter
--- OUTSIDE RECORDS SUMMARY | 2025-04-10 14:14 | XMS_ITS | Encounter Summary ---
Author Organization [facility] and [facility] Address [address] [place] [address] Care Team Providers Care Agriculture Laboratory Technician Name Role Phone Caitlyn Bowie MD Primary Care Provider +1- [phone] Encounter Details Date Type Department Care Team (Late st Contact Info) Description 07/08/2016 Scanned Document [facility] Health Information Management [address] [place] [address] External, Provider Social History Tobacco Use Types [...] [facility] Building [address] [place], [place] [id number] Ronald Mills MD 240 [facility] Max [address] [place] [address] documented as of this encounter Procedures Procedure Name Priority Date/Time Associated Diagnosis Comments LAB SCAN Routine 07/08/2016 documented in this encounter Results * Lab Scan (07/08/2016) Blood specimen (specimen) us Provider External LAB BLOOD ORDERABLES Final Res ult [facility] documented in this encounter Visit Diagnoses Not on filedocumented in this encounter Additional Health Concerns Infection Onset Date Last Indicated Resolved Time COVID-19 03/05/2022 03/05/2022 03/15/2022 7:18 PM EDT documented as of this encounter Care Teams Agriculture Laboratory Technician Relationship Specialty Start Date End Date Caitlyn Bowie MD 3400 [facility] 1 [place] [address] PCP - General Internal Medicine 05/06/21 Henry Kelly MD Pulmonary Department 175 [facility], [address] [place] [address] Physician Pulmonary Disease 09/06/17 06/22/20 documented as of this encounter
--- OUTSIDE RECORDS SUMMARY | 2025-04-10 14:14 | XMS_ITS | Encounter Summary ---
Author Organization [facility] and [facility] Address [address] [place] [address] Care Team Providers Care Import Customer Service Manager Name Role Phone Caitlyn [place]ie MD Primary Care Provider +1- [phone] Encounter Details Date Type Department Care Team (Late st Contact Info) Description 12/04/2014 Scanned Document [facility] Health Information Management [address] [place] [address] External, Provider Social History Tobacco Use Types [...] [facility] 240 [facility] Building [address] [place], [place] [phone] Ronald Mills MD 240 [facility] Max [address] [place] [address] documented as of this encounter Procedures Procedure Name Priority Date/Time Associated Diagnosis Comments LAB SCAN Routine 12/04/2014 documented in this encounter Results * Lab Scan (12/04/2014) Blood specimen (specimen) us Provider External LAB BLOOD ORDERABLES Final Res ult [facility] documented in this encounter Visit Diagnoses Not on filedocumented in this encounter Additional Health Concerns Infection Onset Date Last Indicated Resolved Time COVID-19 03/05/2022 03/05/2022 03/15/2022 7:18 PM EDT documented as of this encounter Care Teams Import Customer Service Manager Relationship Specialty Start Date End Date Caitlyn Bowie MD 3400 [facility] 1 [place] [address] PCP - General Internal Medicine 05/06/21 Henry Kelly MD Pulmonary Department 175 [facility], [address] [place] [address] Physician Pulmonary Disease 09/06/17 06/22/20 documented as of this encounter
--- OUTSIDE RECORDS SUMMARY | 2025-04-10 14:14 | XMS_ITS | Encounter Summary ---
Author Organization [facility] and [facility] Address [address] [place] [address] Care Team Providers Care Paleontology Teacher Name Role Phone Caitlyn Bowie MD Primary Care Provider +1- [phone] Encounter Details Date Type Department Care Team (Late st Contact Info) Description 04/23/2024 Scanned Document INTERFACE DEFAULT [address] [place] [address] System, Provider Not In Social History Tobacco [...] [facility] 240 [facility] Building [address] [place], [place] [phone] Ronald Mills MD [address] [place] [address] [address] [place] [address] documented as of this encounter [...] documented as of this encounter Care Teams Paleontology Teacher Relationship Specialty Start Date End Date Caitlyn Bowie MD [address] [address] PCP - General Internal Medicine 05/06/21 documented as of this encounter
--- OUTSIDE RECORDS SUMMARY | 2025-04-10 14:14 | XMS_ITS | Encounter Summary ---
Author Organization [facility] and [facility] Address [address] [place] [address] Care Team Providers Care Rn Anesthetist Name Role Phone Caitlyn Bowie MD Primary Care Provider +1- [phone] Encounter Details Date Type Department Care Team (Late st Contact Info) Description 12/14/2016 Scanned Document [facility] Health Information Management [address] [place] [address] External, Provider Social History Tobacco Use Types [...] [facility] 240 [facility] Building [address] [place], [place] [phone] Ronald Mills MD 240 [facility] A1 [place] [address] documented as of this encounter Visit Diagnoses Not on filedocumented in this encounter Additional Health Concerns Infection Onset Date Last Indicated Resolved Time COVID-19 03/05/2022 03/05/2022 03/15/2022 7:18 PM EDT documented as of this encounter Care Teams Rn Anesthetist Relationship Specialty Start Date End Date Caitlyn Bowie MD 3400 [facility] 1 [place] [address] PCP - General Internal Medicine 05/06/21 Henry Kelly MD Pulmonary Department 175 [facility], [address] [place] [address] Physician Pulmonary Disease 09/06/17 06/22/20 documented as of this encounter
--- OUTSIDE RECORDS SUMMARY | 2025-04-10 14:14 | XMS_ITS | Encounter Summary ---
Author Organization [facility] and [facility] Address [address] [place] [address] Care Team Providers Care Button Facing Machine Operator Name Role Phone Caitlyn Bowie MD Primary Care Provider +1- [phone] Encounter Details Date Type Department Care Team (Late st Contact Info) Description 07/27/2016 Scanned Document Thoracic Oncology Program at [address] [address] Suzy Kong MD [address] [place] [phone] Social History Tobacco Use Types Packs/Day [...] PM EDT Telemedicine Cancer Center at [address] [place], [place] [phone] Ronald Mills MD 240 [facility] Max [address] [place] [address] documented as of this encounter Visit Diagnoses Not on filedocumented in this encounter Additional Health Concerns Infection Onset Date Last Indicated Resolved Time COVID-19 03/05/2022 03/05/2022 03/15/2022 7:18 PM EDT documented as of this encounter Care Teams Button Facing Machine Operator Relationship Specialty Start Date End Date Caitlyn [place]ie MD 3400 [facility] Max 1 [place] [address] PCP - General Internal Medicine 05/06/21 Henry Kelly MD Pulmonary Department 175 [facility], [address] [place] [address] Physician Pulmonary Disease 09/06/17 06/22/20 documented as of this encounter
--- OUTSIDE RECORDS SUMMARY | 2025-04-10 14:14 | XMS_ITS | Encounter Summary ---
Author Organization [facility] Address [address] [place] [address] Care Team Providers Care Grinding Supervisor Name Role Phone Caitlyn Bowie MD Primary Care Provider +1- [phone] Encounter Details Date Type Department Care Team (Late st Contact Info) Description 07/27/2016 Scanned Document Thoracic Oncology Program at [address] [address] Suzy Kong MD [address] [place] [phone] Social History Tobacco Use Types Packs/Day [...] PM EDT Telemedicine Cancer Center at [address] [place], [place] [phone] Ronald Mills MD 240 [facility] Max [address] [place] [address] documented as of this encounter Visit Diagnoses Not on filedocumented in this encounter Additional Health Concerns Infection Onset Date Last Indicated Resolved Time COVID-19 03/05/2022 03/05/2022 03/15/2022 7:18 PM EDT documented as of this encounter Care Teams Grinding Supervisor Relationship Specialty Start Date End Date Caitlyn Bowie MD 3400 [facility] Max 1 [place] [address] PCP - General Internal Medicine 05/06/21 Henry Kelly MD Pulmonary Department 175 [facility], [address] [place] [address] Physician Pulmonary Disease 09/06/17 06/22/20 documented as of this encounter
--- OUTSIDE RECORDS SUMMARY | 2025-04-10 14:14 | XMS_ITS | Encounter Summary ---
Author Organization [facility] and [facility] Address [address] [place] [address] Care Team Providers Care Clinical Rehab Specialist Name Role Phone Caitlyn Bowie MD Primary Care Provider +1- [phone] Encounter Details Date Type Department Care Team (Late st Contact Info) Description 12/16/2016 Scanned Document [facility] Health Information Management [address] [place] [address] External, Provider Social History Tobacco Use Types [...] [facility] [address] [facility] Building [address] [place], [place] [phone] Ronald Mills MD 240 [facility] Max [address]1 [place] [address] documented as of this encounter [...] as of this encounter Care Teams Clinical Rehab Specialist Relationship Specialty Start Date End Date Caitlyn Bowie MD 3400 [facility] 1 [place] [address] PCP - General Internal Medicine 05/06/21 Henry Kelly MD Pulmonary Department 175 [facility], [address] [place] [address] Physician Pulmonary Disease 09/06/17 06/22/20 documented as of this encounter
--- OUTSIDE RECORDS SUMMARY | 2025-04-10 14:14 | XMS_ITS | Encounter Summary ---
Author Organization [facility] and [facility] Address [address] [place] [address] Care Team Providers Care Powder Cutting Operator Name Role Phone Caitlyn Bowie MD Primary Care Provider +1- [phone] Encounter Details Date Type Department Care Team (Late st Contact Info) Description 06/17/2016 Scanned Document [facility] Health Information Management [address] [place] [address] External, Provider Social History Tobacco Use Types [...] [facility] 240 [facility] Building [address] [place], [place] [phone] Ronald Mills MD 240 [facility] A1 [place] [address] documented as of this encounter Visit Diagnoses Not on filedocumented in this encounter Additional Health Concerns Infection Onset Date Last Indicated Resolved Time COVID-19 03/05/2022 03/05/2022 03/15/2022 7:18 PM EDT documented as of this encounter Care Teams Powder Cutting Operator Relationship Specialty Start Date End Date Caitlyn Bowie MD 3400 [facility] 1 [place] [address] PCP - General Internal Medicine 05/06/21 Henry Kelly MD Pulmonary Department 175 [facility], [address] [place] [address] Physician Pulmonary Disease 09/06/17 06/22/20 documented as of this encounter
--- OUTSIDE RECORDS SUMMARY | 2025-04-10 14:14 | XMS_ITS | Encounter Summary ---
Author Organization [facility] Address [address] [place] [address] Care Team Providers Care Gizzard Puller Name Role Phone Caitlyn Bowie MD Primary Care Provider +1- [phone] Encounter Details Date Type Department Care Team (Late st Contact Info) Description 01/26/2018 Scanned Document [facility] Health Information Management [address] [place] [address] External, Provider Social History Tobacco Use Types [...] [facility] 240 [facility] Building [address] [place] [address] Ronald Mills MD [address] [place] [address] [address] [place] [address] documented as of this encounter [...] documented as of this encounter Care Teams Gizzard Puller Relationship Specialty Start Date End Date Caitlyn Bowie MD 3400 [facility] 1 [place] [address] PCP - General Internal Medicine 05/06/21 Henry Kelly MD Pulmonary Department [address] [place] [address], [address] [place] [address] Physician Pulmonary Disease 09/06/17 06/22/20 documented as of this encounter
--- OUTSIDE RECORDS SUMMARY | 2025-04-10 14:14 | XMS_ITS | Encounter Summary ---
Author Organization [facility] and [facility] Address [address] [place] [address] Care Team Providers Care Venue Attendant Name Role Phone Caitlyn Bowie MD Primary Care Provider +1- [phone] Encounter Details Date Type Department Care Team (Late st Contact Info) Description 11/07/2014 Scanned Document [facility] Health Information Management [address] [place] [address] External, Provider Social History Tobacco Use Types [...] [facility] Building [address] [place], [place] [phone] Ronald Mills MD 240 [facility] A1 [place] [address] documented as of this encounter Visit Diagnoses Not on filedocumented in this encounter Additional Health Concerns Infection Onset Date Last Indicated Resolved Time COVID-19 03/05/2022 03/05/2022 03/15/2022 7:18 PM EDT documented as of this encounter Care Teams Venue Attendant Relationship Specialty Start Date End Date Caitlyn Bowie MD 3400 [facility] 1 [place] [address] PCP - General Internal Medicine 05/06/21 Henry Kelly MD Pulmonary Department 175 [facility], [address] [place] [address] Physician Pulmonary Disease 09/06/17 06/22/20 documented as of this encounter
--- OUTSIDE RECORDS SUMMARY | 2025-04-10 14:14 | XMS_ITS | Encounter Summary ---
Author Organization [facility] and [facility] Address [address] [place] [address] Care Team Providers Care Stucco Worker Name Role Phone Caitlyn Bowie MD Primary Care Provider +1- [phone] Encounter Details Date Type Department Care Team (Late st Contact Info) Description 06/17/2016 Scanned Document REPLACED BY [facility] Health Information Management [address] [place] [address] External, Provider Social History Tobacco Use Types [...] at [facility] 240 [facility] [address] [place], [place] [phone] Ronald Mills MD 240 [facility] [address] [place] [address] documented as of this encounter Procedures Procedure Name Priority Date/Time Associated Diagnosis Comments XRAY RESULT SCAN Routine 06/17/2016 documented in this encounter Results * Xray Result Scan (06/17/2016) us Provider External IMG SCAN REPORTS Final Result [facility] [place], [place], [facility] documented in this encounter Visit Diagnoses Not on filedocumented in this encounter Additional Health Concerns Infection Onset Date Last Indicated Resolved Time COVID-19 03/05/2022 03/05/2022 03/15/2022 7:18 PM EDT documented as of this encounter Care Teams Stucco Worker Relationship Specialty Start Date End Date Caitlyn Bowie MD 3400 [facility] 1 [place] [address] PCP - General Internal Medicine 05/06/21 Henry Kelly MD Pulmonary Department [address] [place] [address], [address] [place] [address] Physician Pulmonary Disease 09/06/17 06/22/20 documented as of this encounter
--- OUTSIDE RECORDS SUMMARY | 2025-04-10 14:14 | XMS_ITS | Encounter Summary ---
Author Organization [facility] and [facility] Address [address] [place] [address] Care Team Providers Care Senior Premium Auditor Name Role Phone Caitlyn Bowie MD Primary Care Provider +1- [phone] Encounter Details Date Type Department Care Team (Late st Contact Info) Description 01/30/2018 Scanned Document [facility] Health Information Management [address] [place] [address] External, Provider Social History Tobacco Use Types [...] [facility] 240 [facility] Building [address] [place], [place] [id number] Ronald Mills MD [address] [place] [address] [address] [place] [address] documented as of this encounter [...] as of this encounter Care Teams Senior Premium Auditor Relationship Specialty Start Date End Date Caitlyn Bwoie MD [facility] 1 [place] [address] PCP - General Internal Medicine 05/06/21 Henry Kelly MD Pulmonary Department 175 [facility], [address] [place] [address] Physician Pulmonary Disease 09/06/17 06/22/20 documented as of this encounter
--- OUTSIDE RECORDS SUMMARY | 2025-04-10 14:14 | XMS_ITS | Encounter Summary ---
Author Organization [facility] and [facility] Address [address] [place] [address] Care Team Providers Care Drop Forger Helper Name Role Phone Caitlyn Bowie MD Primary Care Provider +1- [phone] Encounter Details Date Type Department Care Team (Late st Contact Info) Description 01/27/2018 Scanned Document [facility] Health Information Management [address] [place] [address] External, Provider Social History Tobacco Use Types [...] Center at [facility] 240 [facility] Building [address] [place] [address] Ronald Mills MD 240 [facility] A1 [place] [address] documented as of this encounter [...] as of this encounter Care Teams Drop Forger Helper Relationship Specialty Start Date End Date Caitlyn Bowie MD 3400 [facility] 1 [place] [address] PCP - General Internal Medicine 05/06/21 Henry Kelly MD Pulmonary Department 175 [facility], [address] [place] [address] Physician Pulmonary Disease 09/06/17 06/22/20 documented as of this encounter
--- OUTSIDE RECORDS SUMMARY | 2025-04-10 14:15 | XMS_ITS | Encounter Summary ---
Author Organization [facility] and [facility] Address [address] [place] [address] Care Team Providers Care Drivability Technician Name Role Phone Caitlyn Bowie MD Primary Care Provider +1- [phone] Encounter Details Date Type Department Care Team (Late st Contact Info) Description 10/23/2024 Scanned Document INTERFACE DEFAULT [address] [place] [address] System, Provider Not In Social History Tobacco [...] Telemedicine [facility] at [facility] 240 [facility] Building [address] [place], [place] [phone] Ronald Mills MD [address] [place] [address] [address] [place] [address] documented as of this encounter [...] documented as of this encounter Care Teams Drivability Technician Relationship Specialty Start Date End Date Caitlyn Bowie MD [address] [address] PCP - General Internal Medicine 05/06/21 documented as of this encounter
== END 2025-04-10 13:37 | disposition home or self-care (01) ==
LOC: HO.HPS 12:43
PROVIDERS: PCP Internal Medicine; Visit Provider Hospitalist
DX: J44.9 Chronic obstructive pulmonary disease, unspecified (principal); R05.2 Subacute cough; J96.12 Chronic respiratory failure with hypercapnia; I27.20 Pulmonary hypertension, unspecified; R91.8 Other nonspecific abnormal finding of lung field; J96.11 Chronic respiratory failure with hypoxia; J70.1 Chronic and other pulmonary manifestations due to radiation; I50.32 Chronic diastolic (congestive) heart failure; C34.12 Malignant neoplasm of upper lobe, left bronchus or lung; J90 Pleural effusion, not elsewhere classified; G47.33 Obstructive sleep apnea (adult) (pediatric)
CPT/HCPCS: 99214; G2211

== ENCOUNTER → 2025-04-10 12:43 | Outpatient (BNVA) | payer MEDICARE, SELFPAY | PROVIDERS: PCP Internal Medicine; Visit Provider Hospitalist | DX: J44.9 Chronic obstructive pulmonary disease, unspecified (principal); J96.11 Chronic respiratory failure with hypoxia; R91.8 Other nonspecific abnormal finding of lung field; J70.1 Chronic and other pulmonary manifestations due to radiation; I50.32 Chronic diastolic (congestive) heart failure; J90 Pleural effusion, not elsewhere classified; C34.12 Malignant neoplasm of upper lobe, left bronchus or lung; G47.33 Obstructive sleep apnea (adult) (pediatric); Z99.81 Dependence on supplemental oxygen; Z79.899 Other long term (current) drug therapy | CPT/HCPCS: 99212 ==

== ENCOUNTER 2025-04-18 10:34 | Outpatient (REF) | payer MEDICARE, SELFPAY ==
[2025-04-18 11:22] LABS: MANUAL DIFF FLAG NO
[2025-04-18 12:04] LABS: Hematocrit 36.2 % (37.0-47.0); Hemoglobin 11.8 g/dl (12.0-16.0); Imm Gran Abs Auto 0.17 X10*3/uL (0.00-0.03); Imm Gran Pct Auto 1.0 % (0.0-0.4); Lymphocytes Absolute Auto 0.8 X10*3/uL (1.2-4.9); Mean Corpuscular HGB Conc 32.6 g/dl (31.0-35.0); Mean Corpuscular Hemoglobin 33.5 pg (27.0-33.0); Mean Corpuscular Volume 102.8 fL (80.0-98.0); NRBC Abs Auto 0.000 X10*3/uL (0.0-0.012); NRBC Pct Auto 0.0 /100WBC (0.0-0.2); Platelet Count 200 X10*3/uL (160-400); Red Blood Count 3.52 X10*6/uL (4.20-5.50); White Blood Count 17.3 X10*3/uL (4.8-10.8)
[2025-04-18 12:39] LABS: D Dimer High Sensitivity 324 NG/ML
[2025-04-18 12:53] LABS: Alanine Aminotransferase 25 U/L (0-31); Albumin Level 3.9 g/dL (3.5-5.0); Alkaline Phosphatase 72 U/L (39-117); Anion Gap 10 (12-20); Aspartate Amino Transferase 29 U/L (5-31); Blood Urea Nitrogen 26 mg/dL (9-16); Calcium 10.1 mg/dL (8.4-10.2); Carbon Dioxide 37 mmol/L (22-29); Chloride 99 mmol/L (96-108); Estimated Glomerular Filt Rate > 60; Iron 97 mcg/dL (30-160); Percent Iron Saturation 40 % (15-50); Potassium 3.2 mmol/L (3.3-5.1); Sodium 143 mmol/L (135-145); Total Iron Binding Capacity 243 mcg/dL (228-428); Total Protein 6.9 g/dL (6.5-8.0); Unsaturated Iron Binding 146 ug/dL
[2025-04-18 13:03] LABS: Ferritin 154 ng/mL (10-250)
== END 2025-04-18 10:35 | disposition home or self-care (01) ==
LOC: HO.LAB 10:34
PROVIDERS: PCP Family Medicine; Visit Provider Internal Medicine
DX: D68.61 Antiphospholipid syndrome (principal); R79.89 Other specified abnormal findings of blood chemistry; I82.90 Acute embolism and thrombosis of unspecified vein; R63.30 Feeding difficulties, unspecified
CPT/HCPCS: 80053; 82728; 83090; 83516; 83540; 83921; 84630; 85025; 85379; 85597; 85598; 85613; 85730; 86146; 86147

== ENCOUNTER 2025-04-22 20:05 | Inpatient (IN) | payer MEDICARE, SELFPAY ==
--- NOTE | ~2025-04-22 | XR_ITS ---
CLINICAL HISTORY: sob EXAM: One view chest x-ray COMPARISON: CR/SR - XR CHEST 2 VIEWS - 03/28/25 12:19 EDT FINDINGS: Small left pleural effusion and cardiomegaly again noted. Right pleural spaces clear. Pulmonary vascular congestion and pulmonary edema are stable. IMPRESSION: 1. Stable cardiomegaly, small left pleural effusion, and CHF findings. This document has been electronically signed by: Dayne Camargo MD on 04/22/2025 21:30:03
--- NOTE | ~2025-04-22 | CT_ITS ---
EXAMINATION: CT ABDOMEN AND PELVIS WITHOUT CONTRAST CLINICAL INFORMATION: Abdominal pain. No further clinical information provided. COMPARISON: 02/28/2025, 11/03/2024, 02/01/2024. TECHNIQUE: Multidetector volumetric imaging was performed from the superior aspect of the liver through the pubic symphysis. Sagittal and coronal reformatted images were obtained on the technologist's workstation. This CT examination was performed using dose optimization techniques as appropriate, variously including the following: *Automated exposure control *Adjustment of mA and/or kV according to patient size (this includes techniques or standardized protocols for targeted exams where dose is matched to indication/reason for exam; i.e. extremities or head) *Use of iterative reconstruction technique FINDINGS: LUNG BASES: There is a small left loculated pleural effusion, chronic. There is associated passive atelectasis in the left lung bases. There is discoid type atelectasis in the right lung base. There may be a mild amount of interstitial pulmonary edema present. The heart is mildly enlarged. Metallic implant noted in the region of the mitral valve. There is a chronic small to moderate-sized pericardial effusion. There is a small type I hiatus hernia. LIVER, GALLBLADDER, AND BILIARY TREE: The unenhanced liver is normal in size, shape, and attenuation. No focal hepatic lesion or biliary ductal dilatation is present. The gallbladder is partially decompressed. No wall thickening, pericholecystic fluid, or radiopaque calculi. PANCREAS: Unremarkable. SPLEEN: Unremarkable. ADRENAL GLANDS: Unremarkable. KIDNEYS AND URETERS: The kidneys are normal in size, shape, and attenuation. No hydronephrosis, hydroureter, or calculi seen. No perinephric stranding. There is a 1.7 cm cyst in the superior pole of the left kidney. BLADDER: Decompressed. Grossly normal. GASTROINTESTINAL TRACT: There is a small type I hiatus hernia. The stomach is normal in appearance. The duodenum demonstrate a second segment diverticulum. Small bowel is normal in caliber and course. No wall thickening or inflammation evident. A normal appendix is visualized. The colon demonstrates moderate diverticulosis in the sigmoid. No wall thickening or inflammation evident. No rectal abnormality. ABDOMINAL WALL: No significant hernia is appreciated. LYMPH NODES: Normal. VASCULAR: Moderate atheromatous calcification of the aorta and iliac arteries. There is no aneurysm. PELVIC VISCERA: There has been a hysterectomy. There are no adnexal abnormalities. OSSEOUS STRUCTURES: There is no suspicious lytic or blastic bone lesion. There are degenerative changes throughout the spine with a mild levoconvex thoracolumbar scoliosis. CT/CT abdomen pelvis wo IV con IMPRESSION: 1. No acute finding in the abdomen or pelvis. 2. Chronic small left loculated pleural effusion and small to moderate-sized pericardial effusion. 3. Sigmoid diverticulosis without evidence of acute diverticulitis. 4. Additional stable ancillary findings as detailed in the body of the report. Electronically signed by: Tremaine Curiel MD 04/24/2025 02:09 PM EDT
--- NOTE | ~2025-04-22 | XR_ITS ---
EXAMINATION: XR CHEST CLINICAL INFORMATION: worsening pna COMPARISON: April 22, 2025. TECHNIQUE: Frontal view of the chest was obtained. FINDINGS: Pulmonary reticular nodular pattern. Low volume left lung. Opacity in the mid to lower left hemithorax vascular clips overlapping the left lower hemithorax, unchanged.. Cardiomediastinal silhouette is shifted towards the left hemithorax. No pneumothorax. Osteopenia versus osteoporosis. Multilevel spondylosis. Degenerative changes in the shoulders. XR/XR chest 1V IMPRESSION: Acute on chronic airspace disease with post surgical/treatment changes in the left lung. Concerning loculated left-sided pleural effusion. Please refer to CT chest dated September 09, 2024. Electronically signed by: Kt Millan MD 04/25/2025 11:35 AM EDT
[2025-04-22 20:11] VITALS: BP 121/73; BP 143/80; PULSE 75; PULSE 80; RESP 23; TEMP 36.9; O2SAT 98; BMI 23.7
--- NOTE | 2025-04-22 20:23 | ECG_ITS ---
Test Reason : CHESTPAIN Blood Pressure : */* mmHG Vent. Rate : 80 BPM Atrial Rate : 80 BPM P-R Int : 178 ms QRS Dur : 142 ms QT Int : 422 ms P-R-T Axes : 67 -62 62 degrees QTcB Int : 486 ms Normal sinus rhythm Right bundle branch block Left anterior fascicular block Bifascicular block Abnormal ECG When compared with ECG of 12-Mar-2025 15:05, No significant change was found Referred By: Generic ED Physician Electronically Signed By: Luis Eduardo Cadet
[2025-04-22 20:53] VITALS: PULSE 92; RESP 18; O2SAT 99
[2025-04-22 20:57] LABS: MANUAL DIFF FLAG NO
[2025-04-22 21:04] LABS: Hematocrit 35.9 % (37.0-47.0); Hemoglobin 11.5 g/dl (12.0-16.0); Imm Gran Abs Auto 0.15 X10*3/uL (0.00-0.03); Imm Gran Pct Auto 1.4 % (0.0-0.4); Lymphocytes Absolute Auto 1.2 X10*3/uL (1.2-4.9); Mean Corpuscular HGB Conc 32.0 g/dl (31.0-35.0); Mean Corpuscular Hemoglobin 33.0 pg (27.0-33.0); Mean Corpuscular Volume 103.2 fL (80.0-98.0); NRBC Abs Auto 0.000 X10*3/uL (0.0-0.012); NRBC Pct Auto 0.0 /100WBC (0.0-0.2); Platelet Count 184 X10*3/uL (160-400); Red Blood Count 3.48 X10*6/uL (4.20-5.50); White Blood Count 10.8 X10*3/uL (4.8-10.8)
[2025-04-22 21:12] LABS: Anion Gap 12 (12-20); Blood Urea Nitrogen 23 mg/dL (9-16); Calcium 9.8 mg/dL (8.4-10.2); Carbon Dioxide 30 mmol/L (22-29); Chloride 101 mmol/L (96-108); Creatinine Clr Calc Pharmacy 47.2; Estimated Glomerular Filt Rate > 60; Magnesium 2.5 mg/dL (1.6-2.6); Potassium 3.3 mmol/L (3.3-5.1); Sodium 140 mmol/L (135-145)
--- OUTSIDE RECORDS SUMMARY | 2025-04-22 21:16 | XMS_ITS | Clinical Summary ---
Author Organization [facility] Address [address] [place] [address] Care Team Providers Care Outreach Director Name Role Phone Caitlyn Bowie MD Primary Care Provider +1- [phone] Allergies Active Allergy Reactions Criticality Noted Date [...] Breath High 05/09/2008 Bronchospasm or Wheezing Ipratropium [place] Unknown/Patient and Family Unable to Define Medium [...] 1 capsule by mouth daily. Active B Twnbent-S-Twksj Acid (STRESS 500 B-COMPLEX PO) Take 1 [...] Department Care Team Description 04/08/2025 Telephone [facility] Neurology Ophthalmology [address] [address] Yary Whitten DO Medical Complaint 03/14/2025 Scanned Document [facility] Neurology Ophthalmology [address] [place] [address] Shirley Chaidez PA-C 03/11/2025 Telephone [facility] Neurology Ophthalmology [address] [address] Yary Whitten DO Medical Complaint from Last [...] & B MEDICARE PART A & B [facility] Care Teams Outreach Director Relationship Specialty Start Date End Date Caitlyn Bowie MD 3400 [place] [address] PCP - General Internal Medicine 03/20/23
--- OUTSIDE RECORDS SUMMARY | 2025-04-22 21:16 | XMS_ITS | Encounter Summary ---
Author Organization [facility] and [facility] Address [address] [place] [address] Care Team Providers Care Title Vehicle Service Attendant Name Role Phone Caitlyn Bowie MD Primary Care Provider +1- [phone] Encounter Details Date Type Department Care Team (Late st Contact Info) Description 04/18/2018 Scanned Document [facility] Health Information Management [address] [place] [address] External, Provider Social History Tobacco Use Types [...] Of [facility] 240 [facility] Building [address] [place], [place] [phone] Ronald Mills MD [address] [place] [address] [address] [place] [address] documented as of this encounter [...] as of this encounter Care Teams Title Vehicle Service Attendant Relationship Specialty Start Date End Date Caitlyn Bowie MD 3400 [facility] 1 [place] [address] PCP - General Internal Medicine 05/06/21 Henry eKlly MD Pulmonary Department 175 [facility], [address] [place] [address] Physician Pulmonary Disease 09/06/17 06/22/20 documented as of this encounter
--- OUTSIDE RECORDS SUMMARY | 2025-04-22 21:16 | XMS_ITS | Encounter Summary ---
Author Organization [facility] and [facility] Address [address] [place] [address] Care Team Providers Care Extrusion Die Template Maker Name Role Phone Caitlyn Bowie MD Primary Care Provider +1- [phone] Encounter Details Date Type Department Care Team (Late st Contact Info) Description 07/08/2020 Scanned Document [facility] Health Information Management [address] [place] [address] External, Provider Social History Tobacco Use Types [...] [facility] 240 [facility] Building [address] [place], [place] [phone] Ronald Mills MD [address] [place] [address] [address] [place] [address] documented as of this encounter [...] of this encounter Care Teams Extrusion Die Template Maker Relationship Specialty Start Date End Date Caitlyn Bowie MD [address] [address] PCP - General Internal Medicine 05/06/21 documented as of this encounter
--- OUTSIDE RECORDS SUMMARY | 2025-04-22 21:16 | XMS_ITS | Encounter Summary ---
Author Organization [facility] and [facility] Address [address] [place] [address] Care Team Providers Care Exhibit Carpenter Name Role Phone Caitlyn Bowie MD Primary Care Provider +1- [phone] Encounter Details Date Type Department Care Team (Late st Contact Info) Description 03/14/2018 Scanned Document [facility] Health Information Management [address] [place] [address] External, Provider Social History Tobacco Use Types [...] [facility] at [facility] 240 [facility] Building [address] [place], [place] [phone] Ronald Mills MD [address] [place] [address] [address] [place] [address] documented as of this encounter [...] documented as of this encounter Care Teams Exhibit Carpenter Relationship Specialty Start Date End Date Caitlyn Bowie MD 3400 [facility] 1 [place] [address] PCP - General Internal Medicine 05/06/21 Henry Kelly MD Pulmonary Department 175 [facility], [address] [place] [address] Physician Pulmonary Disease 09/06/17 06/22/20 documented as of this encounter
--- OUTSIDE RECORDS SUMMARY | 2025-04-22 21:16 | XMS_ITS | Encounter Summary ---
Author Organization [facility] and [facility] Address [address] [place] [address] Care Team Providers Care Bindery Library Technical Assistant Name Role Phone Caitlyn Bowie MD Primary Care Provider +1- [phone] Encounter Details Date Type Department Care Team (Late st Contact Info) Description 04/18/2025 Telephone [facility] at [address] [place] [address] Ronald Mills MD [address] [address] Social History Tobacco Use Types [...] Telephone Encounter - Taya Nuno RN - 04/18/2025 5:[address] Mills aware. These are external lab results, and reference scale is likely different. Unable to locate results or call lab, as no number was provided. * Telephone Encounter - Pallavi Frankel - 04/18/2025 12:38 PM EDTSummary: D- Dimer lab results D-dimer results 324 documented in this encounter Plan of Treatment Upcoming Encounters Date Type Department Care Team (Late st Contact Info) Description 04/25/2025 4:00 PM EDT Telemedicine [facility] 240 [facility] Building [address] [place], [place] [address] Ronald Mills MD 240 [facility] [address] [place] [address] documented as of this encounter Visit Diagnoses Not on filedocumented in this encounter Additional Health Concerns Assessment Noted Time PHQ-9 Depression Total Score: 2 11/07/19 19 2:06 PM EDT documented as of this encounter Care Teams Bindery Library Technical Assistant Relationship Specialty Start Date End Date Caitlyn Bowie MD [address] [address] PCP - General Internal Medicine 05/06/21 documented as of this encounter
--- OUTSIDE RECORDS SUMMARY | 2025-04-22 21:16 | XMS_ITS | Encounter Summary ---
Author Organization [facility] and [facility] Address [address] [place] [address] Care Team Providers Care Molasses And Caramel Operator Name Role Phone Caitlyn Bowie MD Primary Care Provider +1- [phone] Encounter Details Date Type Department Care Team (Late Contact Info) Description 11/18/2021 Scanned Document [facility] Health Information Management [address] [place] [address] External, Provider Social History Tobacco Use Types [...] [facility] 240 [facility] Building [address] [place], [place] [phone] Ronald Mills MD [address] [place] [address] [address]1 [place] [address] documented as [...] Caitlyn Bowie MD [address] [address] PCP - General Internal Medicine 05/06/21 documented as of this encounter
--- OUTSIDE RECORDS SUMMARY | 2025-04-22 21:16 | XMS_ITS | Encounter Summary ---
Author Organization [facility] and [facility] Address [address] [place] [address] Care Team Providers Care Regulatory Affairs Associate Name Role Phone Caitlyn Bowie MD Primary Care Provider +1- [phone] Encounter Details Date Type Department Care Team (Late st Contact Info) Description 04/03/2018 Scanned Document [facility] [address] [place] [phone] Provider, historical . Social History Tobacco Use [...] at [facility] 240 [facility] Building [address] [place], [place] [address] Ronald Mills MD [address] [place] [address] [address] [place] [address] documented as of this encounter [...] of this encounter Care Teams Regulatory Affairs Associate Relationship Specialty Start Date End Date Caitlyn Bowie MD 3400 [facility] 1 [place] [address] PCP - General Internal Medicine 05/06/21 Henry Kelly MD Pulmonary Department 175 [facility], [address] [place] [address] Physician Pulmonary Disease 09/06/17 06/22/20 documented as of this encounter
--- OUTSIDE RECORDS SUMMARY | 2025-04-22 21:16 | XMS_ITS | Encounter Summary ---
Author Organization [facility] Address [address] [place] [address] Care Team Providers Care Fire Tower Keeper Name Role Phone Caitlyn Bowie MD Primary Care Provider +1- [phone] Encounter Details Date Type Department Care Team (Late st Contact Info) Description 04/16/2018 Scanned Document [facility] Health Information Management [address] [place] [address] External, Provider Social History Tobacco Use Types [...] [facility] Building [address] [place], [place] [phone] Ronald Mills MD 240 [facility] A1 [place] [address] documented as of this encounter Visit Diagnoses Not on filedocumented in this encounter Additional Health Concerns Infection Onset Date Last Indicated Resolved Time COVID-19 03/05/2022 03/05/2022 03/15/2022 7:18 PM EDT documented as of this encounter Care Teams Fire Tower Keeper Relationship Specialty Start Date End Date Caitlyn Bowie MD 3400 [facility] 1 [place] [address] PCP - General Internal Medicine 05/06/21 Henry Kelly MD Pulmonary Department 175 [facility], [address] [place] [address] Physician Pulmonary Disease 09/06/17 06/22/20 documented as of this encounter
--- OUTSIDE RECORDS SUMMARY | 2025-04-22 21:16 | XMS_ITS | Encounter Summary ---
Author Organization [facility] Address [address] [place] [address] Care Team Providers Care Aircraft Line Assembler Name Role Phone Caitlyn Bowie MD Primary Care Provider +1- [phone] Encounter Details Date Type Department Care Team (Late st Contact Info) Description 12/28/2021 Scanned Document INTERFACE DEFAULT [address] [place] [address] System, Provider Not In Social History Tobacco [...] at [facility] 240 [facility] Building [address] [place] [address] Ronald Mills MD [address] [place] [address] [address] [place] [address] documented as of this encounter Visit Diagnoses Not on filedocumented in this encounter Additional Health Concerns Infection Onset Date Last Indicated Resolved Time COVID-19 03/05/2022 03/05/2022 03/15/2022 7:18 PM EDT Assessment Noted Time PHQ-9 Depression Total Score: 2 11/07/19 19 2:06 PM EDT documented as of this encounter Care Teams Aircraft Line Assembler Relationship Specialty Start Date End Date Caitlyn Bowie MD [address] [address] PCP - General Internal Medicine 05/06/21 documented as of this encounter
--- OUTSIDE RECORDS SUMMARY | 2025-04-22 21:17 | XMS_ITS | Encounter Summary ---
Author Organization [facility] and [facility] Address [address] [place] [address] Care Team Providers Care Sealer Dry Cell Name Role Phone Caitlyn Bowie MD Primary Care Provider +1- [phone] Encounter Details Date Type Department Care Team (Late st Contact Info) Description 09/15/2020 Scanned Document INTERFACE DEFAULT [address] [place] [phone] System, Provider Not In Social History Tobacco [...] [facility] 240 [facility] Building [address] [place] [address] Ronald Mills MD [address] [place] [address] [address] [place] [address] documented as of this encounter Visit Diagnoses Not on filedocumented in this encounter Additional Health Concerns Infection Onset Date Last Indicated Resolved Time COVID-19 03/05/2022 03/05/2022 03/15/2022 7:18 PM EDT Assessment Noted Time PHQ-9 Depression Total Score: 2 11/07/19 19 2:06 PM EDT documented as of this encounter Care Teams Sealer Dry Cell Relationship Specialty Start Date End Date Caitlyn Bowie MD [address] [address] PCP - General Internal Medicine 05/06/21 documented as of this encounter
--- OUTSIDE RECORDS SUMMARY | 2025-04-22 21:17 | XMS_ITS | Encounter Summary ---
Author Organization [facility] and [facility] Address 20 [place] [address] Care Team Providers Care Physical Design Engineer Name Role Phone Caitlyn Bowie MD Primary Care Provider +1- [phone] Encounter Details Date Type Department Care Team (Late st Contact Info) Description 05/14/2020 Documentation Hematology Program at [address] [address] Taya Nuno RN Social History Tobacco Use [...] PM EDT Telemedicine Cancer Center at [address] [place] [address] Ronald Mills MD [address] [place] [address] documented as of this encounter Visit [...] [facility] Max 1 [place] [address] PCP - General Internal Medicine 05/06/21 Henry Kelly MD Pulmonary Department 175 [facility], [address] [place] [address] Physician Pulmonary Disease 09/06/17 06/22/20 documented as of this encounter
--- OUTSIDE RECORDS SUMMARY | 2025-04-22 21:17 | XMS_ITS | Encounter Summary ---
Author Organization [facility] and [facility] Address [address] [place] [address] Care Team Providers Care Naturalist Name Role Phone Caitlyn Bowie MD Primary Care Provider +1- [phone] Encounter Details Date Type Department Care Team (Late st Contact Info) Description 09/17/2020 Scanned Document [facility] Health Information Management [address] [place] [address] External, Provider Social History Tobacco Use Types [...] 240 [facility] Building [address] [place], [place] [phone] Ronald Mills MD [address] [place] [address] [address]1 [place] [address] documented as of this encounter [...] documented as of this encounter Care Teams Naturalist Relationship Specialty Start Date End Date Caitlyn Bowie MD [address] [address] PCP - General Internal Medicine 05/06/21 documented as of this encounter
--- OUTSIDE RECORDS SUMMARY | 2025-04-22 21:17 | XMS_ITS | Encounter Summary ---
Author Organization [facility] and [facility] Address [address] [place] [address] Care Team Providers Care Concession Supervisor Name Role Phone Caitlyn Bowie MD Primary Care Provider +1- [phone] Encounter Details Date Type Department Care Team (Late st Contact Info) Description 07/28/2018 Scanned Document [facility] Health Information Management [address] [place] [address] External, Provider Social History Tobacco Use Types [...] [facility] 240 [facility] Building [address] [place], [place] [phone] Ronald Mills MD 240 [facility] A1 [place] [address] documented as of this encounter [...] documented as of this encounter Care Teams Concession Supervisor Relationship Specialty Start Date End Date Caitlyn Bowie MD [facility] 1 [place] [address] PCP - General Internal Medicine 05/06/21 Henry Kelly MD Pulmonary Department 175 [facility], [address] [place] [address] Physician Pulmonary Disease 09/06/17 06/22/20 documented as of this encounter
--- OUTSIDE RECORDS SUMMARY | 2025-04-22 21:17 | XMS_ITS | Encounter Summary ---
Author Organization [facility] and [facility] Address [address] [place] [address] Care Team Providers Care Corrosion Control Fitter Name Role Phone Caitlyn Bowie MD Primary Care Provider +1- [phone] Encounter Details Date Type Department Care Team (Late st Contact Info) Description 04/25/2021 Scanned Document INTERFACE DEFAULT [address] [place] [address] System, Provider Not In Social History Tobacco [...] Affairs [facility] 240 [facility] Building [address] [place] [address] Ronald Mills MD [address] [place] [address] [address] [place] [address] documented as of this encounter [...] of this encounter Care Teams Corrosion Control Fitter Relationship Specialty Start Date End Date Caitlyn Bowie MD [address] [address] PCP - General Internal Medicine 05/06/21 documented as of this encounter
--- OUTSIDE RECORDS SUMMARY | 2025-04-22 21:17 | XMS_ITS | Encounter Summary ---
Author Organization [facility] and [facility] Address [address] [place] [address] Care Team Providers Care General Repair Mechanic Name Role Phone Caitlyn Bowie MD Primary Care Provider +1- [phone] Encounter Details Date Type Department Care Team (Late st Contact Info) Description 12/16/2016 Scanned Document [facility] Health Information Management [address] [place] [address] External, Provider Social History Tobacco Use Types [...] [facility] 240 [facility] Building [address] [place], [place] [address] Ronald Mills MD 240 [facility] Max [address] [place] [address] [...] as of this encounter Care Teams General Repair Mechanic Relationship Specialty Start Date End Date Caitlyn Bowie MD 3400 [facility] 1 [place] [address] PCP - General Internal Medicine 05/06/21 Henry Kelly MD Pulmonary Department 175 [facility], [address] [place] [address] Physician Pulmonary Disease 09/06/17 06/22/20 documented as of this encounter
--- OUTSIDE RECORDS SUMMARY | 2025-04-22 21:17 | XMS_ITS | Encounter Summary ---
Author Organization [facility] and [facility] Address [address] [place] [address] Care Team Providers Care Operations And Maintenance Supervisor Name Role Phone Caitlyn Bowie MD Primary Care Provider +1- [phone] Encounter Details Date Type Department Care Team (Late Contact Info) Description 10/29/2021 Scanned Document [facility] Health Information Management [address] [place] [address] External, Provider Social History Tobacco Use Types [...] [facility] 240 [facility] Building [address] [place], [place] [id number] Ronald Mills MD [address] [place] [address] [address] [place] [address] documented as of this encounter [...] of this encounter Care Teams Operations And Maintenance Supervisor Relationship Specialty Start Date End Date Caitlyn Bowie MD [address] [address] PCP - General Internal Medicine 05/06/21 documented as of this encounter
--- OUTSIDE RECORDS SUMMARY | 2025-04-22 21:17 | XMS_ITS | Encounter Summary ---
Author Organization [facility] and [facility] Address [address] [place] [address] Care Team Providers Care E Learning Coordinator Name Role Phone Caitlyn Bowie MD Primary Care Provider +1- [phone] Encounter Details Date Type Department Care Team (Late st Contact Info) Description 04/24/2021 Scanned Document INTERFACE DEFAULT [address] [place] [phone] System, Provider Not In Social History Tobacco [...] [facility] 240 [facility] Building [address] [place], [place] [address] Ronald Mills MD [address] [place] [address] [address] [place] [address] documented as of this encounter [...] documented as of this encounter Care Teams E Learning Coordinator Relationship Specialty Start Date End Date Caitlyn Bowie MD [address] [address] PCP - General Internal Medicine 05/06/21 documented as of this encounter
--- OUTSIDE RECORDS SUMMARY | 2025-04-22 21:17 | XMS_ITS | Encounter Summary ---
Author Organization [facility] Address 20 [place] [address] Care Team Providers Care Senior J2Ee Developer Name Role Phone Caitlyn Bowie MD Primary Care Provider +1- [phone] Encounter Details Date Type Department Care Team (Late st Contact Info) Description 05/19/2020 Scanned Document Cancer [facility] at [address] [address] External, Provider Social History Tobacco Use Types [...] [facility] Building [address] [place], [place] [address] Ronald Mills MD [address] [place] [address] [address] [place] [address] documented as of this encounter [...] as of this encounter Care Teams Senior J2Ee Developer Relationship Specialty Start Date End Date Caitlyn Bowie MD 3400 [facility] 1 [place] [address] PCP - General Internal Medicine 05/06/21 Henry Kelly MD Pulmonary Department 175 [facility], [address] [place] [address] Physician Pulmonary Disease 09/06/17 06/22/20 documented as of this encounter
--- OUTSIDE RECORDS SUMMARY | 2025-04-22 21:17 | XMS_ITS | Encounter Summary ---
Author Organization [facility] Address [address] [place] [address] Care Team Providers Care Restaurant Area Manager Name Role Phone Caitlyn Bowie MD Primary Care Provider +1- [phone] Encounter Details Date Type Department Care Team (Late st Contact Info) Description 06/07/2021 Scanned Document Cancer Center at [address] [address] External, Provider Social History Tobacco Use Types [...] [facility] at [facility] 240 [facility] Building [address] [place], [place] [phone] Ronald Mills MD [address] [place] [address] [address] [place] [address] documented as of this encounter [...] End Date Caitlyn Bowie MD [address] [address] PCP - General Internal Medicine 05/06/21 documented as of this encounter
--- OUTSIDE RECORDS SUMMARY | 2025-04-22 21:17 | XMS_ITS | Encounter Summary ---
Author Organization [facility] Address [address] [place] [address] Phone Care Team Providers Care Citrix Engineer Name Role Phone Caitlyn Bowie MD Primary Care Provider +1- [phone] Encounter Details Date Type Department Care Team (Late Contact Info) Description 03/17/2025 Documentation Only [facility] [address] [place] [address] Marina Abdi [address] [place] [address] Social History Tobacco Use [...] [facility] [address] [place] [place] [address] Rubén Ashraf MD [address] [place] [address] [place] [address] documented as of this encounter Visit Diagnoses Not on filedocumented in this encounter Care Teams Citrix Engineer Relationship Specialty Start Date End Date Caitlyn Bowie MD [address]00 [place], [place] PCP - General Internal Medicine 09/24/24 documented as of this encounter
--- OUTSIDE RECORDS SUMMARY | 2025-04-22 21:17 | XMS_ITS | Encounter Summary ---
Author Organization [facility] Address [address] [place] [address] Care Team Providers Care Event Decorator And Designer Name Role Phone Caitlyn Bowie MD Primary Care Provider +1- [phone] Encounter Details Date Type Department Care Team (Late st Contact Info) Description 02/02/2017 Scanned Document [facility] Health Information Management [address] [place] [address] External, Provider Social History Tobacco Use Types [...] [facility] 240 [facility] Building [address] [place], [place] [address] Ronald Mills MD 240 [facility] A1 [place] [address] documented as of this encounter Visit Diagnoses Not on filedocumented in this encounter Additional Health Concerns Infection Onset Date Last Indicated Resolved Time COVID-19 03/05/2022 03/05/2022 03/15/2022 7:18 PM EDT documented as of this encounter Care Teams Event Decorator And Designer Relationship Specialty Start Date End Date Caitlyn Bowie MD 3400 [facility] 1 [place] [address] PCP - General Internal Medicine 05/06/21 Henry Kelly MD Pulmonary Department 175 [facility], [address] [place] [address] Physician Pulmonary Disease 09/06/17 06/22/20 documented as of this encounter
--- OUTSIDE RECORDS SUMMARY | 2025-04-22 21:17 | XMS_ITS | Encounter Summary ---
Author Organization [facility] Address [address] [place] [address] Care Team Providers Care Line Server Name Role Phone Caitlyn Bowie MD Primary Care Provider +1- [phone] Encounter Details Date Type Department Care Team (Late st Contact Info) Description 09/09/2021 Scanned Document INTERFACE DEFAULT [address] [place] [address] System, Provider Not In Social History Tobacco [...] [facility] 240 [facility] Building [address] [place] [address] Ronald Mills MD [address] [place] [address] [address] [place] [address] documented as of this encounter Visit Diagnoses Not on filedocumented in this encounter Additional Health Concerns Infection Onset Date Last Indicated Resolved Time COVID-19 03/05/2022 03/05/2022 03/15/2022 7:18 PM EDT Assessment Noted Time PHQ-9 Depression Total Score: 2 11/07/19 19 2:06 PM EDT documented as of this encounter Care Teams Line Server Relationship Specialty Start Date End Date Caitlyn Bowie MD [address] [address] PCP - General Internal Medicine 05/06/21 documented as of this encounter
--- OUTSIDE RECORDS SUMMARY | 2025-04-22 21:17 | XMS_ITS | Encounter Summary ---
Author Organization [facility] Address [address] [place] [address] Care Team Providers Care Plan Manager Name Role Phone Caitlyn Bowie MD Primary Care Provider +1- [phone] Encounter Details Date Type Department Care Team (Late st Contact Info) Description 12/16/2016 Scanned Document [facility] Health Information Management [address] [place] [address] External, Provider Social History Tobacco Use Types [...] [facility] 240 [facility] Building [address] [place], [place] [address] Ronald Mills MD 240 [facility] [address] [place] [address] documented as of this encounter [...] Bowie MD 3400 [facility] 1 [place] [address] PCP - General Internal Medicine 05/06/21 Henry Kelly MD Pulmonary Department 175 [facility], [address] [place] [address] Physician Pulmonary Disease 09/06/17 06/22/20 documented as of this encounter
--- OUTSIDE RECORDS SUMMARY | 2025-04-22 21:17 | XMS_ITS | Encounter Summary ---
Author Organization [facility] Address [address] [place] [address] Care Team Providers Care Passenger Representative Name Role Phone Caitlyn Bowie MD Primary Care Provider +1- [phone] Encounter Details Date Type Department Care Team (Late st Contact Info) Description 04/18/2013 Documentation Hematology Program at [address] [address] Isis Ragland RN Social History Tobacco Use [...] [facility] 240 [facility] Building [address] [place], [place] [phone] Ronald Mills MD 240 [facility] A1 [place] [address] documented as of this encounter Visit Diagnoses Not on filedocumented in this encounter Additional Health Concerns Infection Onset Date Last Indicated Resolved Time COVID-19 03/05/2022 03/05/2022 03/15/2022 7:18 PM EDT documented as of this encounter Care Teams Passenger Representative Relationship Specialty Start Date End Date Caitlyn Bowie MD 3400 [facility] 1 [place] [address] PCP - General Internal Medicine 05/06/21 Henry Kelly MD Pulmonary Department 175 [facility], [address] [place] [address] Physician Pulmonary Disease 09/06/17 06/22/20 documented as of this encounter
--- OUTSIDE RECORDS SUMMARY | 2025-04-22 21:17 | XMS_ITS | Encounter Summary ---
Author Organization [facility] Address [address] [place] [address] Care Team Providers Care Alpine Patroller Name Role Phone Caitlyn Bowie MD Primary Care Provider +1- [phone] Encounter Details Date Type Department Care Team (Late st Contact Info) Description 12/16/2016 Scanned Document [facility] Health Information Management [address] [place] [address] External, Provider Social History Tobacco Use Types [...] [facility] at [facility] 240 [facility] Building [address] [place], [place] [address] Ronald Mills MD 240 [facility] A1 [place] [address] documented as of this encounter [...] documented as of this encounter Care Teams Alpine Patroller Relationship Specialty Start Date End Date Caitlyn Bowie MD [facility] 1 [place] [address] PCP - General Internal Medicine 05/06/21 Henry Kelly MD Pulmonary Department 175 [facility], [address] [place] [address] Physician Pulmonary Disease 09/06/17 06/22/20 documented as of this encounter
--- OUTSIDE RECORDS SUMMARY | 2025-04-22 21:17 | XMS_ITS | Encounter Summary ---
Author Organization [facility] Address [address] [place] [address] Care Team Providers Care Solutions Market Consultant Name Role Phone Caitlyn Bowie MD Primary Care Provider +1- [phone] Encounter Details Date Type Department Care Team (Late st Contact Info) Description 07/26/2018 Scanned Document [facility] Health Information Management [address] [place] [address] External, Provider Social History Tobacco Use Types [...] Telemedicine [facility] 240 [facility] Building [address] [place], [place] [address] Ronald Mills MD 240 [facility] A1 [place] [address] documented as of this encounter [...] as of this encounter Care Teams Solutions Market Consultant Relationship Specialty Start Date End Date Caitlyn Bowie MD 3400 [facility] 1 [place] [address] PCP - General Internal Medicine 05/06/21 Henry Kelly MD Pulmonary Department 175 [facility], [address] [place] [address] Physician Pulmonary Disease 09/06/17 06/22/20 documented as of this encounter
--- OUTSIDE RECORDS SUMMARY | 2025-04-22 21:17 | XMS_ITS | Encounter Summary ---
Author Organization [facility] Address [address] [place] [address] Care Team Providers Care Natural Foods Clerk Name Role Phone Caitlyn Bowie MD Primary Care Provider +1- [phone] Encounter Details Date Type Department Care Team (Late st Contact Info) Description 12/16/2016 Scanned Document [facility] Health Information Management [address] [place] [address] External, Provider Social History Tobacco Use Types [...] at [facility] 240 [facility] Building [address] [place], [place] [address] Ronald Mills MD 240 [facility] [address] [place] [address] documented as of this encounter [...] as of this encounter Care Teams Natural Foods Clerk Relationship Specialty Start Date End Date Caitlyn Bowie MD 3400 [facility] 1 [place] [address] PCP - General Internal Medicine 05/06/21 Henry Kelly MD Pulmonary Department 175 [facility], [address] [place] [address] Physician Pulmonary Disease 09/06/17 06/22/20 documented as of this encounter
--- OUTSIDE RECORDS SUMMARY | 2025-04-22 21:17 | XMS_ITS | Encounter Summary ---
Author Organization [facility] Address [address] [place] [address] Care Team Providers Care Geropsychologist Name Role Phone Caitlyn Bowie MD Primary Care Provider +1- [phone] Encounter Details Date Type Department Care Team (Late st Contact Info) Description 08/07/2018 Scanned Document [facility] Health Information Management [address] [place] [address] External, Provider Social History Tobacco Use Types [...] [facility] Building [address] [place], [place] [phone] Ronald Mills MD [address] [place] [address] [address]1 [place] [address] documented as of this encounter Visit Diagnoses Not on filedocumented in this encounter Additional Health Concerns Infection Onset Date Last Indicated Resolved Time COVID-19 03/05/2022 03/05/2022 03/15/2022 7:18 PM EDT documented as of this encounter Care Teams Geropsychologist Relationship Specialty Start Date End Date Caitlyn Bowie MD 3400 [facility] 1 [place] [address] PCP - General Internal Medicine 05/06/21 Henry Kelly MD Pulmonary Department 175 [facility], [address] [place] [address] Physician Pulmonary Disease 09/06/17 06/22/20 documented as of this encounter
--- OUTSIDE RECORDS SUMMARY | 2025-04-22 21:17 | XMS_ITS | Encounter Summary ---
Author Organization [facility] Address [address] [place] [address] Care Team Providers Care Pusher Operator Name Role Phone Caitlyn Bowie MD Primary Care Provider +1- [phone] Encounter Details Date Type Department Care Team (Late st Contact Info) Description 04/26/2021 Scanned Document INTERFACE DEFAULT [address] [place] [address] System, Provider Not In Social History Tobacco [...] 240 [facility] Building [address] [place], [place] [address] Ronald Mills MD [address] [place] [address] [address] [place] [address] documented as of this encounter [...] documented as of this encounter Care Teams Pusher Operator Relationship Specialty Start Date End Date Caitlyn Bowie MD [address] [address] PCP - General Internal Medicine 05/06/21 documented as of this encounter
--- OUTSIDE RECORDS SUMMARY | 2025-04-22 21:17 | XMS_ITS | Encounter Summary ---
Author Organization [facility] Address 20 [place] [address] Care Team Providers Care Public Speaking Teacher Name Role Phone Caitlyn Bowie MD Primary Care Provider +1- [phone] Encounter Details Date Type Department Care Team (Late st Contact Info) Description 09/15/2020 Scanned Document Cancer Center at [address] [address] External, Provider Social History Tobacco Use Types [...] [facility] 240 [facility] Building [address] [place], [place] [phone] Ronald Mills MD [address] [place] [address] [address]1 [place] [address] documented as of this encounter [...] as of this encounter Care Teams Public Speaking Teacher Relationship Specialty Start Date End Date Caitlyn Bowie MD [address] [address] PCP - General Internal Medicine 05/06/21 documented as of this encounter
--- OUTSIDE RECORDS SUMMARY | 2025-04-22 21:17 | XMS_ITS | Encounter Summary ---
Author Organization [facility] Address [address] [place] [address] Care Team Providers Care Security System Technician Name Role Phone Caitlyn Bowie MD Primary Care Provider +1- [phone] Encounter Details Date Type Department Care Team (Late st Contact Info) Description 02/20/2017 Scanned Document [facility] Health Information Management [address] [place] [address] External, Provider Social History Tobacco Use Types [...] [facility] 240 [facility] Building [address] [place], [place] [phone] Ronald Mills MD 240 [facility] Max [address] [place] [address] documented as of this encounter [...] as of this encounter Care Teams Security System Technician Relationship Specialty Start Date End Date Caitlyn Bowie MD 3400 [facility] Max 1 [place] [address] PCP - General Internal Medicine 05/06/21 Henry Kelly MD Pulmonary Department 175 [facility], [address] [place] [address] Physician Pulmonary Disease 09/06/17 06/22/20 documented as of this encounter
--- OUTSIDE RECORDS SUMMARY | 2025-04-22 21:17 | XMS_ITS | Encounter Summary ---
Author Organization [facility] Address [address] [place] [address] Care Team Providers Care Channel Opener Name Role Phone Caitlyn Bowie MD Primary Care Provider +1- [phone] Encounter Details Date Type Department Care Team (Late Contact Info) Description 09/16/2020 Scanned Document [facility] Health Information Management [address] [place] [address] External, Provider Social History Tobacco Use Types [...] [facility] Building [address] [place], [place] [address] Ronald Mills MD [address] [place] [address] [address] [place] [address] documented as of this encounter [...] documented as of this encounter Care Teams Channel Opener Relationship Specialty Start Date End Date Caitlyn Bowie MD [address] [address] PCP - General Internal Medicine 05/06/21 documented as of this encounter
--- OUTSIDE RECORDS SUMMARY | 2025-04-22 21:17 | XMS_ITS | Encounter Summary ---
Author Organization [facility] and [facility] Address 20 [place] [address] Care Team Providers Care New Product Trainer Name Role Phone Caitlyn Bowie MD Primary Care Provider +1- [phone] Encounter Details Date Type Department Care Team (Late st Contact Info) Description 05/17/2021 Scanned Document Cancer Center at [address] [address] External, Provider Social History Tobacco Use Types [...] at [facility] 240 [facility] Building [address] [place], [place] [address] Ronald Mills MD [address] [place] [address] [address]1 [place] [address] documented as of this encounter [...] as of this encounter Care Teams New Product Trainer Relationship Specialty Start Date End Date Caitlyn Bowie MD [address] [address] PCP - General Internal Medicine 05/06/21 documented as of this encounter
--- OUTSIDE RECORDS SUMMARY | 2025-04-22 21:17 | XMS_ITS | Encounter Summary ---
Author Organization [facility] and [facility] Address 20 [place] [address] Care Team Providers Care Tobacco Hanger Name Role Phone Caitlyn Bowie MD Primary Care Provider +1- [phone] Encounter Details Date Type Department Care Team (Late st Contact Info) Description 09/07/2020 Scanned Document Cardiovascular Medicine at [address] [place], [place] [address] Norma Renee MD [address] [place] [phone] Social History Tobacco Use Types Packs/Day Years [...] PM EDT Telemedicine Cancer Center at [address] [place], [place] [address] Ronald Mills MD [address] [place] [address] [address]1 [place] [address] documented as of this encounter Visit Diagnoses Not on filedocumented in this encounter Additional Health Concerns Infection Onset Date Last Indicated Resolved Time COVID-19 03/05/2022 03/05/2022 03/15/2022 7:18 PM EDT Assessment Noted Time PHQ-9 Depression Total Score: 2 11/07/19 19 2:06 PM EDT documented as of this encounter Care Teams Tobacco Hanger Relationship Specialty Start Date End Date Caitlyn Bowie MD [address] [address] PCP - General Internal Medicine 05/06/21 documented as of this encounter
--- OUTSIDE RECORDS SUMMARY | 2025-04-22 21:17 | XMS_ITS | Encounter Summary ---
Author Organization [facility] Address [address] [place] [address] Care Team Providers Care Aircraft Mechanic Name Role Phone Caitlyn Bowie MD Primary Care Provider +1- [phone] Reason for Visit * Reason Comments Triage Encounter Details Date Type Department Care Team (Late st Contact Info) Description 10/18/2021 Telephone [facility] at [address] - [address] [address] Ronald Mills MD [address] [place] [address] Triage Social History Tobacco Use Types [...] [facility] Building [address] [place], [place] [address] Ronald Mills MD 240 [facility] Max [address] [place] [address] documented as of this encounter Visit Diagnoses Not on filedocumented in this encounter Additional Health Concerns Infection Onset Date Last Indicated Resolved Time COVID-19 03/05/2022 03/05/2022 03/15/2022 7:18 PM EDT Assessment Noted Time PHQ-9 Depression Total Score: 2 11/07/19 19 2:06 PM EDT documented as of this encounter Care Teams Aircraft Mechanic Relationship Specialty Start Date End Date Caitlyn Bowie MD [address] [address] PCP - General Internal Medicine 05/06/21 documented as of this encounter
--- OUTSIDE RECORDS SUMMARY | 2025-04-22 21:17 | XMS_ITS | Encounter Summary ---
Author Organization [facility] Address [address] [place] [address] Care Team Providers Care Driver Education Instructor Name Role Phone Caitlyn Bowie MD Primary Care Provider +1- [phone] Encounter Details Date Type Department Care Team (Late st Contact Info) Description 07/30/2018 Scanned Document [facility] Health Information Management [address] [place] [address] External, Provider Social History Tobacco Use Types [...] Center, [facility] Building [address] [place], [place] [phone] Ronald Mills MD [address] [place] [address] [address] [place] [address] documented as of this encounter [...] as of this encounter Care Teams Driver Education Instructor Relationship Specialty Start Date End Date Caitlyn Bowie MD [facility]0 [facility] 1 [place] [address] PCP - General Internal Medicine 05/06/21 Henry Kelly MD Pulmonary Department 175 [facility], [address] [place] [address] Physician Pulmonary Disease 09/06/17 06/22/20 documented as of this encounter
--- OUTSIDE RECORDS SUMMARY | 2025-04-22 21:17 | XMS_ITS | Encounter Summary ---
Author Organization [facility] Address [address] [place] [address] Care Team Providers Care Supervisor Alum Plant Name Role Phone Caitlyn Bowie MD Primary Care Provider +1- [phone] Encounter Details Date Type Department Care Team (Late st Contact Info) Description 09/24/2021 Scanned Document INTERFACE DEFAULT [address] [place] [address] System, Provider Not In Social History Tobacco [...] [facility] 240 [facility] Building [address] [place] [address] Ronald Mills MD [address] [place] [address] [address] [place] [address] documented as of this encounter [...] as of this encounter Care Teams Supervisor Alum Plant Relationship Specialty Start Date End Date Caitlyn Bowie MD [facility] [address] [address] PCP - General Internal Medicine 05/06/21 documented as of this encounter
--- OUTSIDE RECORDS SUMMARY | 2025-04-22 21:17 | XMS_ITS | Encounter Summary ---
Author Organization [facility] Address [address] [place] [address] Care Team Providers Care Outside Repairer Special Name Role Phone Caitlyn Bowie MD Primary Care Provider +1- [phone] Encounter Details Date Type Department Care Team (Late st Contact Info) Description 11/18/2021 Scanned Document INTERFACE DEFAULT [address] [place] [address] System, Provider Not In Social History Tobacco [...] [facility] 240 [facility] Building [address] [place] [address] Ronald Mills MD [address] [place] [address] [address] [place] [address] documented as of this encounter Visit Diagnoses Not on filedocumented in this encounter Additional Health Concerns Infection Onset Date Last Indicated Resolved Time COVID-19 03/05/2022 03/05/2022 03/15/2022 7:18 PM EDT Assessment Noted Time PHQ-9 Depression Total Score: 2 11/07/19 19 2:06 PM EDT documented as of this encounter Care Teams Outside Repairer Special Relationship Specialty Start Date End Date Caitlyn Bowie MD [address] [address] PCP - General Internal Medicine 05/06/21 documented as of this encounter
--- OUTSIDE RECORDS SUMMARY | 2025-04-22 21:17 | XMS_ITS | Encounter Summary ---
Author Organization [facility] and [facility] Address [address] [place] [address] Care Team Providers Care Sole Polisher Name Role Phone Caitlyn Bowie MD Primary Care Provider +1- [phone] Encounter Details Date Type Department Care Team (Late st Contact Info) Description 06/08/2021 Scanned Document INTERFACE DEFAULT [address] [place] [address] System, Provider Not In Social History Tobacco [...] [facility] at [facility] 240 [facility] Building [address] [place], [place] [address] Ronald Mills MD [address] [place] [address] [address] [place] [address] documented as of this encounter [...] as of this encounter Care Teams Sole Polisher Relationship Specialty Start Date End Date Caitlyn Bowie MD [address] [place] [address] PCP - General Internal Medicine 05/06/21 documented as of this encounter
--- OUTSIDE RECORDS SUMMARY | 2025-04-22 21:17 | XMS_ITS | Encounter Summary ---
Author Organization [facility] and [facility] Address [address] [place] [address] Care Team Providers Care Elephant Keeper Name Role Phone Caitlyn Bowie MD Primary Care Provider +1- [phone] Encounter Details Date Type Department Care Team (Late Contact Info) Description 09/15/2020 Scanned Document [facility] Health Information Management [address] [place] [address] External, Provider Social History Tobacco Use Types [...] [facility] 240 [facility] Building [address] [place], [place] [phone] Ronald Mills MD [address] [place] [address] [address] [place] [address] documented as of this encounter [...] documented as of this encounter Care Teams Elephant Keeper Relationship Specialty Start Date End Date Caitlyn Bowie MD [address] [address] PCP - General Internal Medicine 05/06/21 documented as of this encounter
--- OUTSIDE RECORDS SUMMARY | 2025-04-22 21:17 | XMS_ITS | Encounter Summary ---
Author Organization [facility] and [facility] Address [address] [place] [address] Care Team Providers Care Proof Coins Inspector Name Role Phone Caitlyn Bowie MD Primary Care Provider +1- [phone] Encounter Details Date Type Department Care Team (Late st Contact Info) Description 12/19/2016 Scanned Document [facility] Health Information Management [address] [place] [address] External, Provider Social History Tobacco Use Types [...] Center at [facility] 240 [facility] Building [address] [place], [place] [address] Ronald Mills MD 240 [facility] Max [address] [place] [address] documented as of this encounter [...] as of this encounter Care Teams Proof Coins Inspector Relationship Specialty Start Date End Date Caitlyn Bowie MD [facility]0 [facility] 1 [place] [address] PCP - General Internal Medicine 05/06/21 Henry Kelly MD Pulmonary Department 175 [facility], [address] [place] [address] Physician Pulmonary Disease 09/06/17 06/22/20 documented as of this encounter
--- OUTSIDE RECORDS SUMMARY | 2025-04-22 21:17 | XMS_ITS | Encounter Summary ---
Author Organization [facility] Address [address] [place] [address] Care Team Providers Care Grinder Operator External Tool Name Role Phone Caitlyn Bowie MD Primary Care Provider +1- [phone] Encounter Details Date Type Department Care Team (Late st Contact Info) Description 10/15/2018 Scanned Document [facility] Health Information Management [address] [place] [address] External, Provider Social History Tobacco Use Types [...] at [facility] 240 [facility] Building [address] [place], [place] [phone] Ronald Mills MD [address] [place] [address] [address] [place] [address] documented as of this encounter Visit Diagnoses Not on filedocumented in this encounter Additional Health Concerns Infection Onset Date Last Indicated Resolved Time COVID-19 03/05/2022 03/05/2022 03/15/2022 7:18 PM EDT documented as of this encounter Care Teams Grinder Operator External Tool Relationship Specialty Start Date End Date Caitlyn Bowie MD 3400 [facility] 1 [place] [address] PCP - General Internal Medicine 05/06/21 Henry Kelly MD Pulmonary Department 175 [facility], [address] [place] [address] Physician Pulmonary Disease 09/06/17 06/22/20 documented as of this encounter
--- OUTSIDE RECORDS SUMMARY | 2025-04-22 21:17 | XMS_ITS | Encounter Summary ---
Author Organization [facility] Address [address] [place] [address] Phone Care Team Providers Care Returned Goods Inspector Name Role Phone Caitlyn Bowie MD Primary Care Provider +1- [phone] Encounter Details Date Type Department Care Team (Late Contact Info) Description 03/24/2025 Documentation Only [facility] [address] [place] [address] Marina Abdi [address] [place] [address] Social History Tobacco Use Types [...] Visit [facility] [address] [place] [address] Rubén Ashraf MD [address] [place] [address] Dr. Reinal[place] [address] documented as of this encounter Visit Diagnoses Not on filedocumented in this encounter Care Teams Returned Goods Inspector Relationship Specialty Start Date End Date Caitlyn Bowie MD 3400 [place], [place] PCP - General Internal Medicine 09/24/24 documented as of this encounter
--- OUTSIDE RECORDS SUMMARY | 2025-04-22 21:17 | XMS_ITS | Encounter Summary ---
Author Organization [facility] and [facility] Address [address] [place] [address] Care Team Providers Care Truck Car And Bus Cleaner Name Role Phone Caitlyn Bowie MD Primary Care Provider +1- [phone] Encounter Details Date Type Department Care Team (Late st Contact Info) Description 05/27/2021 Telephone [facility] at [address] [address] Ronald Mills MD [address] [place] [address] Social History Tobacco Use Types Packs/Day [...] [facility] 240 [facility] [address] [place], [place] [address] Ronald Mills MD 240 [facility] [address] [place] [address] documented as of this encounter Visit Diagnoses Not on filedocumented in this encounter Additional Health Concerns Infection Onset Date Last Indicated Resolved Time COVID-19 03/05/2022 03/05/2022 03/15/2022 7:18 PM EDT Assessment Noted Time PHQ-9 Depression Total Score: 2 11/07/19 19 2:06 PM EDT documented as of this encounter Care Teams Truck Car And Bus Cleaner Relationship Specialty Start Date End Date Caitlyn Bowie MD [address] [address] PCP - General Internal Medicine 05/06/21 documented as of this encounter
--- OUTSIDE RECORDS SUMMARY | 2025-04-22 21:17 | XMS_ITS | Encounter Summary ---
Author Organization [facility] and [facility] Address [address] [place] [address] Care Team Providers Care Public Speaker Name Role Phone Caitlyn Bowie MD Primary Care Provider +1- [phone] Encounter Details Date Type Department Care Team (Late st Contact Info) Description 04/29/2021 Scanned Document INTERFACE DEFAULT [address] [place] [address] System, Provider Not In Social History Tobacco [...] [facility] Building [address] [place] [address] Ronald Mills MD [address] [place] [address] [address] [place] [address] documented as of this encounter [...] as of this encounter Care Teams Public Speaker Relationship Specialty Start Date End Date Caitlyn Bowie MD [address] [address] PCP - General Internal Medicine 05/06/21 documented as of this encounter
--- OUTSIDE RECORDS SUMMARY | 2025-04-22 21:17 | XMS_ITS | Encounter Summary ---
Author Organization [facility] Address [address] [place] [address] Care Team Providers Care Engineering Technician Name Role Phone Caitlyn Bowie MD Primary Care Provider +1- [phone] Encounter Details Date Type Department Care Team (Late st Contact Info) Description 06/26/2018 Scanned Document [facility] Health Information Management [address] [place] [address] External, Provider Social History Tobacco Use Types [...] [facility] 240 [facility] Building [address] [place], [place] [id number] Ronald Mills MD 240 [facility] A1 [place] [address] documented as of this encounter Visit Diagnoses Not on filedocumented in this encounter Additional Health Concerns Infection Onset Date Last Indicated Resolved Time COVID-19 03/05/2022 03/05/2022 03/15/2022 7:18 PM EDT documented as of this encounter Care Teams Engineering Technician Relationship Specialty Start Date End Date Caitlyn Bowie MD 3400 [facility] 1 [place] [address] PCP - General Internal Medicine 05/06/21 Henry Kelly MD Pulmonary Department 175 [facility], [address] [place] [address] Physician Pulmonary Disease 09/06/17 06/22/20 documented as of this encounter
--- OUTSIDE RECORDS SUMMARY | 2025-04-22 21:17 | XMS_ITS | Encounter Summary ---
Author Organization [facility] Address 20 [place] [address] Care Team Providers Care Meter Changes Records Clerk Name Role Phone Caitlyn Bowie MD Primary Care Provider +1- [phone] Encounter Details Date Type Department Care Team (Late st Contact Info) Description 09/10/2021 Scanned Document Cardiovascular Medicine at [address] [place], [place] [address] Norma Renee MD [address] [place] [phone] Social History Tobacco Use Types Packs/Day Years [...] PM EDT Telemedicine Cancer Center at [address] [place], [place] [address] Ronald Mills MD [address] [place] [address] [address] [place] [address] documented as of this encounter Visit Diagnoses Not on filedocumented in this encounter Additional Health Concerns Infection Onset Date Last Indicated Resolved Time COVID-19 03/05/2022 03/05/2022 03/15/2022 7:18 PM EDT Assessment Noted Time PHQ-9 Depression Total Score: 2 11/07/19 19 2:06 PM EDT documented as of this encounter Care Teams Meter Changes Records Clerk Relationship Specialty Start Date End Date Caitlyn Bowie MD [address] [address] PCP - General Internal Medicine 05/06/21 documented as of this encounter
--- OUTSIDE RECORDS SUMMARY | 2025-04-22 21:17 | XMS_ITS | Encounter Summary ---
Author Organization [facility] and [facility] Address [address] [place] [address] Care Team Providers Care Lymphedema Therapist Name Role Phone Caitlyn Bowie MD Primary Care Provider +1- [phone] Encounter Details Date Type Department Care Team (Late st Contact Info) Description 04/28/2021 Scanned Document INTERFACE DEFAULT [address] [place] [address] System, Provider Not In Social History Tobacco [...] [facility] 240 [facility] Building [address] [place], [place] [address] Ronald Mills MD [address] [place] [address] [address] [place] [address] documented as of this encounter [...] documented as of this encounter Care Teams Lymphedema Therapist Relationship Specialty Start Date End Date Caitlyn Bowie MD [address] [address] PCP - General Internal Medicine 05/06/21 documented as of this encounter
--- OUTSIDE RECORDS SUMMARY | 2025-04-22 21:17 | XMS_ITS | Encounter Summary ---
Author Organization [facility] Address [address] [place] [address] Care Team Providers Care Director Of Content Marketing Name Role Phone Caitlyn Bowie MD Primary Care Provider +1- [phone] Encounter Details Date Type Department Care Team (Late st Contact Info) Description 12/16/2016 Scanned Document [facility] Health Information Management [address] [place] [address] External, Provider Social History Tobacco Use Types [...] [facility] 240 [facility] Building [address] [place], [place] [address] Ronald Mills MD 240 [facility] Max [address]1 [place] [address] documented as of this encounter [...] of this encounter Care Teams Director Of Content Marketing Relationship Specialty Start Date End Date Caitlyn Bowie MD 3400 [facility] 1 [place] [address] PCP - General Internal Medicine 05/06/21 Henry Kelly MD Pulmonary Department 175 [facility], [address] [place] [address] Physician Pulmonary Disease 09/06/17 06/22/20 documented as of this encounter
--- OUTSIDE RECORDS SUMMARY | 2025-04-22 21:17 | XMS_ITS | Clinical Summary ---
Author Organization [facility] Address [address] [place] [address] Care Team Providers Care Property Accountant Name Role Phone Brennan Burnett MD Primary Care Provider [phone] Allergies Active Allergy Reactions Criticality Noted Date [...] age to complete this topic Care Teams Property Accountant Relationship Specialty Start Date End Date Brennan Burnett MD [address] [place] [address] PCP - General Internal Medicine 07/06/20
--- OUTSIDE RECORDS SUMMARY | 2025-04-22 21:17 | XMS_ITS | Encounter Summary ---
Author Organization [facility] Address [address] [place] [address] Care Team Providers Care Solar System Designer Name Role Phone Caitlyn Bowie MD Primary Care Provider +1- [phone] Encounter Details Date Type Department Care Team (Late Contact Info) Description 09/09/2020 Scanned Document [facility] Health Information Management [address] [place] [phone] External, Provider Social History Tobacco Use Types [...] [facility] 240 [facility] Building [address] [place], [place] [phone] Ronald Mills MD [address] [place] [address] [address]1 [place] [address] documented as of this encounter [...] as of this encounter Care Teams Solar System Designer Relationship Specialty Start Date End Date Caitlyn Bowie MD [address] [address] PCP - General Internal Medicine 05/06/21 documented as of this encounter
--- OUTSIDE RECORDS SUMMARY | 2025-04-22 21:17 | XMS_ITS | Patient Health Record ---
Author Organization [facility] Address [address] [place] [address] Care Team Providers Care Director Writing Name Role Phone Shruti Bowieberly Primary Care Provider Cristian Fountain Unavailable [phone] Allergies Allergen (clinical drug ingredient) Drug/Non Drug [...] 50 MG 1 tablet Orally Once a day; Duration: 30 day(s) Active Vitamin B 12 100 MCG as directed Orally Active Vitamin D-3 125 MCG (5000 UT) as directed Orally Active Elderberry 500 MG as directed Orally Active Stool Softener 100 MG 1 capsule as neede d Orally Once a day; Duration: 30 day(s) Active Probiotic - as directed Orally Active ZyrTEC Allergy 10 MG 1 tablet Orally Onc e a day; Duration: 30 day(s) Active Vitamin C 500 MG as directed Orally Active Singulair 10 MG 1 tablet Orally Once a day; Duration: 30 day(s) Active Montelukast Sodium 10 MG 1 tablet Orally Once a day; Duration: 30 day(s) Active Metoprolol Succinate ER 25 MG 1 tablet Orally Once a day; Duration: 30 day(s) Active Magnesium 300 MG 1 capsule with a addis l Orally Once a day; Duration: 30 day(s) Active Coumadin 1 MG 1 tablet Orally Once a day; Duration: 30 day(s) Active traZODone HCl 100 MG 1 tablet at bedtime Orally Once a day; Duration: 30 day(s) Active Azelastine HCl 137 MCG/SPRAY 1 puff in each nostril Nasally Twice a day; Duration: 30 day(s) Active Valium 5 MG 1 tablet as needed O rally Once a day Active Albuterol Sulfate (2.5 MG/3ML) 0.083% 3 ml as needed Inhalation every 6 hrs Active Synthroid 25 MCG 1 tablet in the morn ing on an empty stomach Orally Once a day; Duration: 30 day(s) Active Advair HFA 230-21 MCG/ACT 2 puffs Inhala tion Twice a day Active Furosemide 20 MG 1 tablet Orally Once a day; Duration: 30 day(s) Active Meclizine HCl 25 MG 1 tablet as needed O rally Once a day; Duration: 30 day(s) Active Omeprazole 40 MG 1 capsule 30 minutes before morning meal Orally Once a day; Duration: 30 day(s) Active Immunizations Vaccine Route Administration [...] Status W/U Status Risk Notes Problem Diverticulitis (30159043) Diverticulitis (K57.92) Active confirmed Problem Irritable bowel syndrome characterized by constipation (378003829) Irritable bowel syndrome with constipation (K58.9) Active confirmed Problem Gastroesophageal reflux disease (510188016) GERD (gastroesophageal reflux disease) (K21.9) Active confirmed Plan Of Treatment No Information Insurance Providers Payer Name Payer Address Payer Phone Subscriber Number Group Number Insured Name Patient Relationship to Insured Coverage Start Date Coverage End Date MEDICARE OF [place] [address] [place] [address] [id number] DANIEL WATSONE Self - patient is the insured [employer] ATT[employer] CLAIMS [address] [place] [address] [id number] DANIEL WATSONE Self - patient is the insured Medical (General) History Medical History History ICD Code [place]-04/2021-sees Dr. 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 Gomes Pneumomias Hypothyroidism Surgical History Surgery Date(Month/Year) Tonsils and adenoids [facility] Lung cancer-Left lower lobectomy at [facility], XRT, Chemo 2008
--- OUTSIDE RECORDS SUMMARY | 2025-04-22 21:17 | XMS_ITS | Encounter Summary ---
Author Organization [facility] and [facility] Address [address] [place] [address] Care Team Providers Care Rest Room Maid Name Role Phone Caitlyn Bowie MD Primary Care Provider +1- [phone] Encounter Details Date Type Department Care Team (Late st Contact Info) Description 06/07/2021 Scanned Document Onco-Oncology Program at [address] [place] [address] Norma Renee MD [address] [place] [address] 2 [place] [address] Social History Tobacco Use Types [...] 4:00 PM EDT Telemedicine Cancer Center at [address] [place], [place] [address] Ronald Mills MD 240 [facility] A1 [place] [address] documented as of this encounter Visit Diagnoses Not on filedocumented in this encounter Additional Health Concerns Infection Onset Date Last Indicated Resolved Time COVID-19 03/05/2022 03/05/2022 03/15/2022 7:18 PM EDT Assessment Noted Time PHQ-9 Depression Total Score: 2 11/07/19 19 2:06 PM EDT documented as of this encounter Care Teams Rest Room Maid Relationship Specialty Start Date End Date Caitlyn Bowie MD [address] [address] PCP - General Internal Medicine 05/06/21 documented as of this encounter
--- OUTSIDE RECORDS SUMMARY | 2025-04-22 21:17 | XMS_ITS | Encounter Summary ---
Author Organization [facility] Address [address] [place] [address] Care Team Providers Care Blender / Cook Name Role Phone Caitlyn Bowie MD Primary Care Provider +1- [phone] Reason for Visit * Reason Comments Advice Only Encounter Details Date Type Department Care Team ([facility] st Contact Info) Description 06/01/2021 Telephone [facility] at [address] [phone] Ronald Mills MD [address] [place] [phone] Advice Only Social History Tobacco Use [...] added that she's called before and sent [employer] messages but hasn't received a reply,[phone]. documented in this encounter Plan of Treatment Upcoming Encounters Date Type Department Care Team (Late st Contact Info) Description 04/25/2025 4:00 PM EDT Telemedicine [facility] at [facility] 240 [facility] Building [address] [place], [place] [id number] Ronald Mills MD 240 [facility] Max [address] [place] [address] documented as of this encounter Visit Diagnoses Not on filedocumented in this encounter Additional Health Concerns Infection Onset Date Last Indicated Resolved Time COVID-19 03/05/2022 03/05/2022 03/15/2022 7:18 PM EDT Assessment Noted Time PHQ-9 Depression Total Score: 2 11/07/19 19 2:06 PM EDT documented as of this encounter Care Teams Blender / Cook Relationship Specialty Start Date End Date Caitlyn Bowie MD 3400 [facility] 1 [place] [address] PCP - General Internal Medicine 05/06/21 documented as of this encounter
--- OUTSIDE RECORDS SUMMARY | 2025-04-22 21:17 | XMS_ITS | Encounter Summary ---
Author Organization [facility] Address [address] [place] [address] Care Team Providers Care Drycleaner Name Role Phone Caitlyn Bowie MD Primary Care Provider +1- [phone] Encounter Details Date Type Department Care Team (Late st Contact Info) Description 04/27/2021 Scanned Document INTERFACE DEFAULT [address] [place] [address] System, Provider Not In Social History Tobacco [...] at [facility] 240 [facility] [address] [place] [address] Ronald Mills MD [address] [place] [address] [address] [place] [address] documented as of this encounter [...] documented as of this encounter Care Teams Drycleaner Relationship Specialty Start Date End Date Caitlyn Bowie MD [address] [address] PCP - General Internal Medicine 05/06/21 documented as of this encounter
--- OUTSIDE RECORDS SUMMARY | 2025-04-22 21:17 | XMS_ITS | Encounter Summary ---
Author Organization [facility] Address [address] [place] [address] Care Team Providers Care Bolt Sorter Name Role Phone Caitlyn Bowie MD Primary Care Provider +1- [phone] Encounter Details Date Type Department Care Team (Late st Contact Info) Description 06/07/2021 Scanned Document [facility]Oncology Program at [address] [place] [address] Norma Renee MD [address] [place] [address] 2 [place] [address] Social History Tobacco Use Types [...] PM EDT Telemedicine Cancer Center at [address] [place], [place] [phone] Ronald Mills MD 240 [facility] A1 [place] [address] documented as of this encounter Visit Diagnoses Not on filedocumented in this encounter Additional Health Concerns Infection Onset Date Last Indicated Resolved Time COVID-19 03/05/2022 03/05/2022 03/15/2022 7:18 PM EDT Assessment Noted Time PHQ-9 Depression Total Score: 2 11/07/19 19 2:06 PM EDT documented as of this encounter Care Teams Bolt Sorter Relationship Specialty Start Date End Date Caitlyn Bowie MD [address] [address] PCP - General Internal Medicine 05/06/21 documented as of this encounter
--- OUTSIDE RECORDS SUMMARY | 2025-04-22 21:17 | XMS_ITS | Encounter Summary ---
Author Organization [facility] Address [address] [place] [address] Care Team Providers Care Grommet Man Name Role Phone Caitlyn Bowie MD Primary Care Provider +1- [phone] Encounter Details Date Type Department Care Team (Late st Contact Info) Description 02/20/2017 Scanned Document [facility] Health Information Management [address] [place] [address] External, Provider Social History Tobacco Use [...] Center at [facility] 240 [facility] Building [address] [place], [place] [phone] Roanld Mills MD 240 [facility] Max [address] [place] [address] documented as of this encounter [...] as of this encounter Care Teams Grommet Man Relationship Specialty Start Date End Date Caitlyn Bowie MD 3400 [facility] 1 [place] [address] PCP - General Internal Medicine 05/06/21 Henry Kelly MD Pulmonary Department 175 [facility], [address] [place] [address] Physician Pulmonary Disease 09/06/17 06/22/20 documented as of this encounter
--- OUTSIDE RECORDS SUMMARY | 2025-04-22 21:17 | XMS_ITS | Encounter Summary ---
Author Organization [facility] Address [address] [place] [address] Care Team Providers Care Pin Attacher Name Role Phone Caitlyn Bowie MD Primary Care Provider +1- [phone] Reason for Visit * Reason Comments FYI Encounter Details Date Type Department Care Team (Late st Contact Info) Description 05/24/2021 Telephone [facility] Thoracic Oncology Program at [facility] at [address] [place] [address] 2nd [place], [place] [phone] Solo Henry MD [address] [place] [phone] FYI Social History Tobacco Use Types [...] [facility] 240 [facility] Building [address] [place] [address] Ronald Mills MD 240 [facility] Max [address]1 [place] [address] documented as of this encounter Visit Diagnoses Not on filedocumented in this encounter Additional Health Concerns Infection Onset Date Last Indicated Resolved Time COVID-19 03/05/2022 03/05/2022 03/15/2022 7:18 PM EDT Assessment Noted Time PHQ-9 Depression Total Score: 2 11/07/19 19 2:06 PM EDT documented as of this encounter Care Teams Pin Attacher Relationship Specialty Start Date End Date Caitlyn Bowie MD 3400 [facility] 1 [place] [address] PCP - General Internal Medicine 05/06/21 documented as of this encounter
--- OUTSIDE RECORDS SUMMARY | 2025-04-22 21:17 | XMS_ITS | Encounter Summary ---
Author Organization [facility] Address [address] [place] [address] Care Team Providers Care Medical Technologist Generalist Name Role Phone Caitlyn Bowie MD Primary Care Provider +1- [phone] Encounter Details Date Type Department Care Team (Late st Contact Info) Description 09/16/2020 Scanned Document [facility] Health Information Management [address] [place] [address] External, Provider Social History Tobacco Use Types [...] at [facility] 240 [facility] Building [address] [place], [place] [phone] Ronald Mills MD [address] [place] [address] [address] [place] [address] documented as of this encounter Procedures Procedure [...] as of this encounter Care Teams Medical Technologist Generalist Relationship Specialty Start Date End Date Caitlyn Bowie MD [address] [address] PCP - General Internal Medicine 05/06/21 documented as of this encounter
--- OUTSIDE RECORDS SUMMARY | 2025-04-22 21:17 | XMS_ITS | Encounter Summary ---
Author Organization [facility] Address [address] [place] [address] Care Team Providers Care Lead Net Software Developer Name Role Phone Caitlyn Bowie MD Primary Care Provider +1- [phone] Encounter Details Date Type Department Care Team (Late st Contact Info) Description 09/23/2021 Scanned Document INTERFACE DEFAULT [address] [place] [address] System, Provider Not In Social History Tobacco [...] Center at [facility] 240 [facility] Building [address] [place], [place] [address] Ronald Mills MD [address] [place] [address] [address] [place] [address] documented as of this encounter [...] as of this encounter Care Teams Lead Net Software Developer Relationship Specialty Start Date End Date Caitlyn Bowie MD [address] [address] PCP - General Internal Medicine 05/06/21 documented as of this encounter
--- OUTSIDE RECORDS SUMMARY | 2025-04-22 21:17 | XMS_ITS | Encounter Summary ---
Author Organization [facility] Address [address] [place] [address] Care Team Providers Care Seconds Grader Name Role Phone Caitlyn Bowie MD Primary Care Provider +1- [phone] Encounter Details Date Type Department Care Team (Late st Contact Info) Description 05/05/2021 Scanned Document INTERFACE DEFAULT [address] [place] [address] System, Provider Not In Social History Tobacco [...] Telemedicine Cancer Center at [facility] 240 [facility] Building [address] [place] [address] Ronald Mills MD [address] [place] [address] [address]1 [place] [address] documented as of this encounter Visit Diagnoses Not on filedocumented in this encounter Additional Health Concerns Infection Onset Date Last Indicated Resolved Time COVID-19 03/05/2022 03/05/2022 03/15/2022 7:18 PM EDT Assessment Noted Time PHQ-9 Depression Total Score: 2 11/07/19 19 2:06 PM EDT documented as of this encounter Care Teams Seconds Grader Relationship Specialty Start Date End Date Caitlyn Bowie MD [address] [address] PCP - General Internal Medicine 05/06/21 documented as of this encounter
--- OUTSIDE RECORDS SUMMARY | 2025-04-22 21:17 | XMS_ITS | Encounter Summary ---
Author Organization [facility] Address [address] [place] [address] Care Team Providers Care Petroleum Products District Supervisor Name Role Phone Caitlyn Bowie MD Primary Care Provider +1- [phone] Encounter Details Date Type Department Care Team (Late st Contact Info) Description 10/08/2021 Scanned Document INTERFACE DEFAULT [address] [place] [address] System, Provider Not In Social History Tobacco [...] [facility] 240 [facility] Building [address] [place], [place] [address] Ronald Mills MD [address] [place] [address] [address] [place] [address] documented as of this encounter [...] End Date Caitlyn Bowie MD [address] [address] PCP - General Internal Medicine 05/06/21 documented as of this encounter
--- OUTSIDE RECORDS SUMMARY | 2025-04-22 21:17 | XMS_ITS | Encounter Summary ---
Author Organization [facility] and [facility] Address [address] [place] [address] Care Team Providers Care Gamer Name Role Phone Caitlyn Bowie MD Primary Care Provider +1- [phone] Encounter Details Date Type Department Care Team (Late Contact Info) Description 09/18/2020 Scanned Document [facility] Health Information Management [address] [place] [address] External, Provider Social History Tobacco Use Types [...] Center at [facility] 240 [facility] Building [address] [place], [place] [phone] Ronald Mills MD [address] [place] [address] [address]1 [place] [address] documented as of this encounter [...] documented as of this encounter Care Teams Gamer Relationship Specialty Start Date End Date Caitlyn Bowie MD [address] [address] PCP - General Internal Medicine 05/06/21 documented as of this encounter
--- OUTSIDE RECORDS SUMMARY | 2025-04-22 21:17 | XMS_ITS | Encounter Summary ---
Author Organization [facility] Address 20 [place] [address] Care Team Providers Care Commodity Buyer Name Role Phone Caitlyn Bowie MD Primary Care Provider +1- [phone] Encounter Details Date Type Department Care Team (Late st Contact Info) Description 11/19/2021 Scanned Document Cardiovascular Medicine at [address] 2nd [place] [address] Norma Renee MD [address] [place] [address] Social History Tobacco Use Types Packs/Day [...] PM EDT Telemedicine Cancer Center at [address] [place] [address] Ronald Mills MD 240 [facility] A1 [place] [address] documented as of this encounter [...] End Date Caitlyn Bowie MD [address] [address] PCP - General Internal Medicine 05/06/21 documented as of this encounter
--- OUTSIDE RECORDS SUMMARY | 2025-04-22 21:17 | XMS_ITS | Encounter Summary ---
Author Organization [facility] Address [address] [place] [address] Care Team Providers Care Emt Basic Name Role Phone Caitlyn Bowie MD Primary Care Provider +1- [phone] Encounter Details Date Type Department Care Team (Late st Contact Info) Description 12/16/2016 Scanned Document [facility] Health Information Management [address] [place] [address] External, Provider Social History Tobacco Use Types [...] [facility] 240 [facility] Building [address] [place], [place] [phone] Ronald Mills MD 240 [facility] A1 [place] [address] documented as of this encounter Visit Diagnoses Not on filedocumented in this encounter Additional Health Concerns Infection Onset Date Last Indicated Resolved Time COVID-19 03/05/2022 03/05/2022 03/15/2022 7:18 PM EDT documented as of this encounter Care Teams Emt Basic Relationship Specialty Start Date End Date Caitlyn Bowie MD 3400 [facility] 1 [place] [address] PCP - General Internal Medicine 05/06/21 Henry Kelly MD Pulmonary Department 175 [facility], [address] [place] [address] Physician Pulmonary Disease 09/06/17 06/22/20 documented as of this encounter
--- OUTSIDE RECORDS SUMMARY | 2025-04-22 21:17 | XMS_ITS | Encounter Summary ---
Author Organization [facility] and [facility] Address [address] [place] [address] Care Team Providers Care Vice Chair Name Role Phone Caitlyn Bowie MD Primary Care Provider +1- [phone] Encounter Details Date Type Department Care Team (Late st Contact Info) Description 12/16/2016 Scanned Document [facility] Health Information Management [address] [place] [address] External, Provider Social History Tobacco Use Types [...] [facility] 240 [facility] Building [address] [place], [place] [address] Ronald Mills MD 240 [facility] Max [address] [place] [address] documented as of this encounter [...] as of this encounter Care Teams Vice Chair Relationship Specialty Start Date End Date Caitlyn Bowie MD 3400 [facility] 1 [place] [address] PCP - General Internal Medicine 05/06/21 Henry Kelly MD Pulmonary Department 175 [facility], [address] [place] [address] Physician Pulmonary Disease 09/06/17 06/22/20 documented as of this encounter
[2025-04-22 21:18] LABS: Troponin-I High Sensitivity 15.0 ng/L (<3.5-17.0)
--- OUTSIDE RECORDS SUMMARY | 2025-04-22 21:18 | XMS_ITS | Encounter Summary ---
Author Organization [facility] Address [address] [place] [address] Care Team Providers Care Mergers And Acquisitions Attorney Name Role Phone Caitlyn Bowie MD Primary Care Provider +1- [phone] Encounter Details Date Type Department Care Team (Late st Contact Info) Description 06/23/2022 Scanned Document INTERFACE DEFAULT [address] [place] [address] System, Provider Not In Social History Tobacco [...] [facility] 240 [facility] Building [address] [place] [address] Ronald Mills MD [address] [place] [address] [address]1 [place] [address] documented as of this encounter Visit Diagnoses Not on filedocumented in this encounter Additional Health Concerns Assessment Noted Time PHQ-9 Depression Total Score: 2 11/07/19 19 2:06 PM EDT documented as of this encounter Care Teams Mergers And Acquisitions Attorney Relationship Specialty Start Date End Date Caitlyn Bowie MD [address] [address] PCP - General Internal Medicine 05/06/21 documented as of this encounter
--- OUTSIDE RECORDS SUMMARY | 2025-04-22 21:18 | XMS_ITS | Encounter Summary ---
Author Organization [facility] Address [address] [place] [address] Care Team Providers Care Infrastructure Technician Name Role Phone Caitlyn Bowie MD Primary Care Provider +1- [phone] Encounter Details Date Type Department Care Team (Late st Contact Info) Description 04/27/2017 Scanned Document [facility] Health Information Management [address] [place] [address] External, Provider Social History Tobacco Use Types [...] [facility] 240 [facility] Building [address] [place], [place] [address] Ronald Mills MD 240 [facility] A1 [place] [address] documented as of this encounter Visit Diagnoses Not on filedocumented in this encounter Additional Health Concerns Infection Onset Date Last Indicated Resolved Time COVID-19 03/05/2022 03/05/2022 03/15/2022 7:18 PM EDT documented as of this encounter Care Teams Infrastructure Technician Relationship Specialty Start Date End Date Caitlyn Bowie MD 3400 [facility] 1 [place] [address] PCP - General Internal Medicine 05/06/21 Henry Kelly MD Pulmonary Department 175 [facility], [address] [place] [address] Physician Pulmonary Disease 09/06/17 06/22/20 documented as of this encounter
--- OUTSIDE RECORDS SUMMARY | 2025-04-22 21:18 | XMS_ITS | Encounter Summary ---
Author Organization [facility] and [facility] Address 20 [place] [address] Care Team Providers Care Rn Document Improvement Specialist Name Role Phone Caitlyn Bowie MD Primary Care Provider +1- [phone] Encounter Details Date Type Department Care Team (Latest Contact Info) Description 04/15/2013 Transcribed Orders [place] [facility] 800 [place] [address] Tian Atwood MD [address] [facility] 102 [place] [address] Unspecified hypothyroidism (Primary Dx) Social [...] [facility] 240 [facility] Building [address] [place] [address] Ronald Mills MD 240 [facility] A1 [place] [address] documented as of this encounter Results * Copper, serum total (YH) (04/15/2013 4:31 PM EDT) Copper, Serum Total SEE BELOW [facility] Comment: Test Result Flag Unit RefValue Copper, S 1.35 mcg/mL 0.75-1.45 04/15/2013 4:31 PM EDT us Tian Atwood MD LAB BLOOD ORDERABLES Final R esult [facility] [address] [place] [address] documented in this encounter Visit Diagnoses Diagnosis Unspecified hypothyroidism- Primary documented in this encounter Additional Health Concerns Infection Onset Date Last Indicated Resolved Time COVID-19 03/05/2022 03/05/2022 03/15/2022 7:18 PM EDT documented as of this encounter Care Teams Rn Document Improvement Specialist Relationship Specialty Start Date End Date Caitlyn Bowie MD 3400 [facility] 1 [place] [address] PCP - General Internal Medicine 05/06/21 Henry Kelly MD Pulmonary Department 175 [facility], [address] [place] [address] Physician Pulmonary Disease 09/06/17 06/22/20 documented as of this encounter
--- OUTSIDE RECORDS SUMMARY | 2025-04-22 21:18 | XMS_ITS | Encounter Summary ---
Author Organization [facility] Address [address] [place] [address] Care Team Providers Care Security Intern Name Role Phone Caitlyn Bowie MD Primary Care Provider +1- [phone] Encounter Details Date Type Department Care Team (Late st Contact Info) Description 04/20/2023 Scanned Document INTERFACE DEFAULT [address] [place] [address] System, Provider Not In Social History Tobacco [...] [facility] 240 [facility] Building [address] [place], [place] [phone] Ronald Mills MD [address] [place] [address] [address]1 [place] [address] documented as of this encounter [...] as of this encounter Care Teams Security Intern Relationship Specialty Start Date End Date Caitlyn Bowie MD [address] [address] PCP - General Internal Medicine 05/06/21 documented as of this encounter
--- OUTSIDE RECORDS SUMMARY | 2025-04-22 21:18 | XMS_ITS | Encounter Summary ---
Author Organization [facility] Address [address] [place] [address] Phone Care Team Providers Care Eligibility Manager Name Role Phone Caitlyn Bowie MD Primary Care Provider +1- [phone] Encounter Details Date Type Department Care Team (Late Contact Info) Description 12/10/2024 Documentation Only [facility] [address] [place] [address] Marina Abdi [address] [place] [address] Social History Tobacco Use Types [...] Visit [facility] [address] [place] [address] Rubén Ashraf MD [address] [place] [address] [place] [address] documented as of this encounter Visit Diagnoses Not on filedocumented in this encounter Care Teams Eligibility Manager Relationship Specialty Start Date End Date Caitlyn Bowie MD 3400 [place], [place] PCP - General Internal Medicine 09/24/24 documented as of this encounter
--- OUTSIDE RECORDS SUMMARY | 2025-04-22 21:18 | XMS_ITS | Encounter Summary ---
Author Organization [facility] Address [address] [place] [address] Care Team Providers Care Script Coordinator Name Role Phone Pcp, No Primary Care Provider Brennan Mario MD Primary Care Provider [phone] Caitlyn Bowie MD Primary Care Provider +1- [phone] Encounter Details Date Type Department Care Team (Late st Contact Info) Description 01/04/2022 Scanned Document [facility] Ophthalmology [address] [address] Yary Whitten DO [address] [place] [address] Social History Tobacco Use Types Packs/Day [...] on filedocumented in this encounter Care Teams Script Coordinator Relationship Specialty Start Date End Date Pcp, No PCP - General General Medicine 10/04/21 07/18/22 Brennan Burnett MD [address] [place] [address] PCP - General 07/19/22 03/19/23 Caitlyn Bowie MD 3400 [place] [address] PCP - General Internal Medicine 03/20/23 documented as of this encounter
--- OUTSIDE RECORDS SUMMARY | 2025-04-22 21:18 | XMS_ITS | Encounter Summary ---
Author Organization [facility] Address [address] [place] [address] Care Team Providers Care Business Data Analyst Name Role Phone Caitlyn Bowie MD Primary Care Provider +1- [phone] Encounter Details Date Type Department Care Team (Late st Contact Info) Description 06/27/2019 Scanned Document Onco-Oncology Program at [address] [place] [address] Norma Renee MD [address] [place] [address] 2 [place] [address] Social History Tobacco Use Types [...] PM EDT Telemedicine Cancer Center at [address] [place], [place] [phone] Ronald Mills MD 240 [facility] A1 [place] [address] documented as of this encounter Visit Diagnoses Not on filedocumented in this encounter Additional Health Concerns Infection Onset Date Last Indicated Resolved Time COVID-19 03/05/2022 03/05/2022 03/15/2022 7:18 PM EDT Assessment Noted Time PHQ-9 Depression Total Score: 2 11/07/19 19 2:06 PM EDT documented as of this encounter Care Teams Business Data Analyst Relationship Specialty Start Date End Date Caitlyn Bowie MD 3400 [facility] 1 [place] [address] PCP - General Internal Medicine 05/06/21 Henry Kelly MD Pulmonary Department 175 [facility], [address] [place] [address] Physician Pulmonary Disease 09/06/17 06/22/20 documented as of this encounter
--- OUTSIDE RECORDS SUMMARY | 2025-04-22 21:18 | XMS_ITS | Encounter Summary ---
Author Organization [facility] Address [address] [place] [address] Care Team Providers Care Oil Process Stillman Name Role Phone Caitlyn Bowie MD Primary Care Provider +1- [phone] Encounter Details Date Type Department Care Team (Late st Contact Info) Description 12/23/2022 Scanned Document INTERFACE DEFAULT [address] [place] [address] System, Provider Not In Social History Tobacco [...] Cancer Center at [facility] 240 [facility] [address] [place] [address] Ronald Mills MD [address] [place] [address] [address] [place] [address] documented as of this encounter Visit Diagnoses Not on filedocumented in this encounter Additional Health Concerns Assessment Noted Time PHQ-9 Depression Total Score: 2 11/07/19 19 2:06 PM EDT documented as of this encounter Care Teams Oil Process Stillman Relationship Specialty Start Date End Date Caitlyn Bowie MD [address] [address] PCP - General Internal Medicine 05/06/21 documented as of this encounter
--- OUTSIDE RECORDS SUMMARY | 2025-04-22 21:18 | XMS_ITS | Encounter Summary ---
Author Organization [facility] Address [address] [place] [address] Care Team Providers Care Shirt Finisher Name Role Phone Caitlyn Bowie MD Primary Care Provider +1- [phone] Encounter Details Date Type Department Care Team (Late st Contact Info) Description 06/28/2022 Scanned Document INTERFACE DEFAULT [address] [place] [address] System, Provider Not In Social History Tobacco [...] [facility] Building [address] [place], [place] [phone] Ronald Mills MD [address] [place] [address] [address]1 [place] [address] documented as of this encounter [...] as of this encounter Care Teams Shirt Finisher Relationship Specialty Start Date End Date Caitlyn Bowie MD [address] [address] PCP - General Internal Medicine 05/06/21 documented as of this encounter
--- OUTSIDE RECORDS SUMMARY | 2025-04-22 21:18 | XMS_ITS | Encounter Summary ---
Author Organization [facility] Address 20 [place] [address] Care Team Providers Care Ict Managers Name Role Phone Caitlyn Bowie MD Primary Care Provider +1- [phone] Encounter Details Date Type Department Care Team (Late st Contact Info) Description 08/23/2022 Abstract Cardiovascular Medicine at [address] 2nd [place] [address] Norma Renee MD [address] [place] [phone] Social History Tobacco Use Types Packs/Day Years [...] PM EDT Telemedicine Cancer Center at [address] [place] [address] Ronald Mills MD [address] [place] [address] [address] [place] [address] documented as of this encounter Visit Diagnoses Not on filedocumented in this encounter Additional Health Concerns Assessment Noted Time PHQ-9 Depression Total Score: 2 11/07/19 19 2:06 PM EDT documented as of this encounter Care Teams Ict Managers Relationship Specialty Start Date End Date Caitlyn Bowie MD [address] [address] PCP - General Internal Medicine 05/06/21 documented as of this encounter
--- OUTSIDE RECORDS SUMMARY | 2025-04-22 21:18 | XMS_ITS | Encounter Summary ---
Author Organization [facility] and [facility] Address [address] [place] [address] Care Team Providers Care Weaving Inspector Name Role Phone Caitlyn Bowie MD Primary Care Provider +1- [phone] Encounter Details Date Type Department Care Team (Late st Contact Info) Description 06/24/2022 Scanned Document INTERFACE DEFAULT [address] [place] [address] System, Provider Not In Social History Tobacco [...] [facility] Building [address] [place], [place] [phone] Ronald Mills MD [address] [place] [address] [address] [place] [address] documented as of this encounter [...] as of this encounter Care Teams Weaving Inspector Relationship Specialty Start Date End Date Caitlyn Bowie MD [address] [address] PCP - General Internal Medicine 05/06/21 documented as of this encounter
--- OUTSIDE RECORDS SUMMARY | 2025-04-22 21:18 | XMS_ITS | Encounter Summary ---
Author Organization [facility] and [facility] Address [address] [place] [address] Care Team Providers Care Quality Assurance Inspector Name Role Phone Caitlyn Bowie MD Primary Care Provider +1- [phone] Encounter Details Date Type Department Care Team (Late st Contact Info) Description 01/02/2024 Scanned Document INTERFACE DEFAULT [address] [place] [address] System, Provider Not In Social History Tobacco [...] [facility] 240 [facility] Building [address] [place], [place] [phone] Ronald Mills MD [address] [place] [address] [address] [place] [address] documented as of this encounter [...] of this encounter Care Teams Quality Assurance Inspector Relationship Specialty Start Date End Date Caitlyn Bowie MD [address] [address] PCP - General Internal Medicine 05/06/21 documented as of this encounter
--- OUTSIDE RECORDS SUMMARY | 2025-04-22 21:18 | XMS_ITS | Encounter Summary ---
Author Organization [facility] Address 20 [place] [address] Care Team Providers Care Community Health Advocate Name Role Phone Caitlyn Bowie MD Primary Care Provider +1- [phone] Encounter Details Date Type Department Care Team (Late st Contact Info) Description 08/29/2019 Scanned Document Cancer Center at [address] [address] External, Provider Social History Tobacco Use Types [...] [facility] 240 [facility] Building [address] [place], [place] [address] Ronald Mills MD [address] [place] [address] [address]1 [place] [address] documented as of this encounter [...] of this encounter Care Teams Community Health Advocate Relationship Specialty Start Date End Date Caitlyn Bowie MD 3400 [facility] 1 [place] [address] PCP - General Internal Medicine 05/06/21 Henry Kelly MD Pulmonary Department 175 [facility], [address] [place] [address] Physician Pulmonary Disease 09/06/17 06/22/20 documented as of this encounter
--- OUTSIDE RECORDS SUMMARY | 2025-04-22 21:18 | XMS_ITS | Encounter Summary ---
Author Organization [facility] Address 20 [place] [address] Care Team Providers Care Customer Service Voice Name Role Phone Caitlyn Bowie MD Primary Care Provider +1- [phone] Encounter Details Date Type Department Care Team (Late st Contact Info) Description 08/29/2019 Scanned Document Cancer Center at [address] [address] External, Provider Social History Tobacco Use Types [...] Cancer Center at [facility] 240 [facility] Building [address] [place], [place] [address] Ronald Mills MD [address] [place] [address] [address]1 [place] [address] documented as of this encounter [...] of this encounter Care Teams Customer Service Voice Relationship Specialty Start Date End Date Caitlyn Bowie MD 34[address] [facility] 1 [place] [address] PCP - General Internal Medicine 05/06/21 Henry Kelly MD Pulmonary Department 175 [facility], [address] [place] [address] Physician Pulmonary Disease 09/06/17 06/22/20 documented as of this encounter
--- OUTSIDE RECORDS SUMMARY | 2025-04-22 21:18 | XMS_ITS | Encounter Summary ---
Author Organization [facility] and [facility] Address [address] [place] [address] Care Team Providers Care Healthcare Network Consultant Name Role Phone Caitlyn Bowei MD Primary Care Provider +1- [phone] Encounter Details Date Type Department Care Team (Late st Contact Info) Description 07/12/2019 Scanned Document Onco-Oncology Program at [address] [place] [address] Norma Renee MD [address] [place] [address] 2 [place] [address] Social History Tobacco Use Types [...] PM EDT Telemedicine Cancer Center at [address] [place], [place] [address] Ronald Mills MD 240 [facility] A1 [place] [address] documented as of this encounter Visit Diagnoses Not on filedocumented in this encounter Additional Health Concerns Infection Onset Date Last Indicated Resolved Time COVID-19 03/05/2022 03/05/2022 03/15/2022 7:18 PM EDT Assessment Noted Time PHQ-9 Depression Total Score: 2 11/07/19 19 2:06 PM EDT documented as of this encounter Care Teams Healthcare Network Consultant Relationship Specialty Start Date End Date Caitlyn Bowie MD 3400 [facility] 1 [place] [address] PCP - General Internal Medicine 05/06/21 Henry Kelly MD Pulmonary Department 175 [facility], [address] [place] [address] Physician Pulmonary Disease 09/06/17 06/22/20 documented as of this encounter
--- OUTSIDE RECORDS SUMMARY | 2025-04-22 21:18 | XMS_ITS | Encounter Summary ---
Author Organization [facility] Address [address] [place] [address] Care Team Providers Care Infant Childcare Provider Name Role Phone Caitlyn Bowie MD Primary Care Provider +1- [phone] Encounter Details Date Type Department Care Team (Late st Contact Info) Description 05/16/2023 Scanned Document INTERFACE DEFAULT [address] [place] [address] System, Provider Not In Social History Tobacco [...] at [facility] 240 [facility] Building [address] [place] [address] Ronald Mills MD [address] [place] [address] [address] [place] [address] documented as of this encounter [...] End Date Caitlyn Bowie MD [address] [address] PCP - General Internal Medicine 05/06/21 documented as of this encounter
--- OUTSIDE RECORDS SUMMARY | 2025-04-22 21:18 | XMS_ITS | Encounter Summary ---
Author Organization [facility] Address [address] [place] [address] Care Team Providers Care Ditto Machine Operator Name Role Phone Caitlyn Bowie MD Primary Care Provider +1- [phone] Encounter Details Date Type Department Care Team (Late st Contact Info) Description 07/26/2012 Abstract [facility] Health Information Management [address] [place] [address] [place], Primary Care [address] [place] [address] Social History Tobacco Use Types Packs/Day Years [...] PM EDT Telemedicine Cancer Center at [address] [place], [place] [address] Ronald Mills MD [address] [place] [address] documented as of this encounter Visit Diagnoses Not on filedocumented in this encounter Additional Health Concerns Infection Onset Date Last Indicated Resolved Time COVID-19 03/05/2022 03/05/2022 03/15/2022 7:18 PM EDT documented as of this encounter Care Teams Ditto Machine Operator Relationship Specialty Start Date End Date Caitlyn Bowie MD 3400 [facility] 1 [place] [address] PCP - General Internal Medicine 05/06/21 Henry Kelly MD Pulmonary Department 175 [facility], [address] [place] [address] Physician Pulmonary Disease 09/06/17 06/22/20 documented as of this encounter
--- OUTSIDE RECORDS SUMMARY | 2025-04-22 21:18 | XMS_ITS | Encounter Summary ---
Author Organization [facility] Address [address] [place] [address] Care Team Providers Care Wastewater Technician Name Role Phone Caitlyn Bowie MD Primary Care Provider +1- [phone] Encounter Details Date Type Department Care Team (Late st Contact Info) Description 09/07/2021 Scanned Document INTERFACE DEFAULT [address] [place] [address] System, Provider Not In Social History Tobacco [...] [facility] Building [address] [place], [place] [address] Ronald Mills MD [address] [place] [address] [address] [place] [address] documented as of this encounter [...] as of this encounter Care Teams Wastewater Technician Relationship Specialty Start Date End Date Caitlyn Bowie MD [address] [address] PCP - General Internal Medicine 05/06/21 documented as of this encounter
--- OUTSIDE RECORDS SUMMARY | 2025-04-22 21:18 | XMS_ITS | Encounter Summary ---
Author Organization [facility] and [facility] Address [address] [place] [address] Care Team Providers Care Open Hearth Furnace Operator Helper Name Role Phone Caitlyn Bowie MD Primary Care Provider +1- [phone] Encounter Details Date Type Department Care Team (Late st Contact Info) Description 07/22/2021 Scanned Document INTERFACE DEFAULT [address] [place] [address] System, Provider Not In Social History Tobacco [...] [facility] 240 [facility] Building [address] [place], [place] [address] Ronald Mills MD [address] [place] [address] [address]1 [place] [address] documented as of this encounter [...] of this encounter Care Teams Open Hearth Furnace Operator Helper Relationship Specialty Start Date End Date Caitlyn Bowie MD [address] [address] PCP - General Internal Medicine 05/06/21 documented as of this encounter
--- OUTSIDE RECORDS SUMMARY | 2025-04-22 21:18 | XMS_ITS | Encounter Summary ---
Author Organization [facility] Address 20 [place] [address] Care Team Providers Care Fundraising Assistant Name Role Phone Caitlyn Bowie MD Primary Care Provider +1- [phone] Encounter Details Date Type Department Care Team (Late st Contact Info) Description 04/26/2017 Scanned Document Cardiovascular Medicine at [address] [place] [address] System, Provider Not In Social History Tobacco [...] 240 [facility] Building [address] [place], [place] [address] Ronald Mills MD 240 [facility] A1 [place] [address] documented as of this [...] documented as of this encounter Care Teams Fundraising Assistant Relationship Specialty Start Date End Date Caitlyn Bowie MD 3400 [facility] 1 [place] [address] PCP - General Internal Medicine 05/06/21 Henry Kelly MD Pulmonary Department 175 [facility], [address] [place] [address] Physician Pulmonary Disease 09/06/17 06/22/20 documented as of this encounter
--- OUTSIDE RECORDS SUMMARY | 2025-04-22 21:18 | XMS_ITS | Encounter Summary ---
Author Organization [facility] and [facility] Address 20 [place] [address] Care Team Providers Care Clerk Of Works Name Role Phone Caitlyn Bowie MD Primary Care Provider +1- [phone] Encounter Details Date Type Department Care Team (Late st Contact Info) Description 06/21/2012 Abstract Head & Neck Cancers Program at [address] [address] Mikel Lloyd MD [address] [place] [phone] (Fax) Social History Tobacco Use Types Packs/Day [...] [facility] 240 [facility] Building [address] [place] [address] Ronald Mills MD 240 [facility] Max [address]1 [place] [address] documented as of this encounter Visit Diagnoses Not on filedocumented in this encounter Additional Health Concerns Infection Onset Date Last Indicated Resolved Time COVID-19 03/05/2022 03/05/2022 03/15/2022 7:18 PM EDT documented as of this encounter Care Teams Clerk Of Works Relationship Specialty Start Date End Date Caitlyn Bowie MD 3400 [facility] 1 [place] [address] PCP - General Internal Medicine 05/06/21 Henry Kelly MD Pulmonary Department [address] [place] [address], [address] [place] [address] Physician Pulmonary Disease 09/06/17 06/22/20 documented as of this encounter
--- OUTSIDE RECORDS SUMMARY | 2025-04-22 21:18 | XMS_ITS | Encounter Summary ---
Author Organization [facility] Address [address] [place] [address] 2[address] [place] [address] Phone Care Team Providers Care Youth Coordinator Name Role Phone Caitlyn Bowie MD Primary Care Provider +1- [phone] Encounter Details Date Type Department Care Team (Late st Contact Info) Description 08/30/2024 Abstract [facility] 2447 [facility] 202 [place] [address] Adalgisa Whitney MD [address] [place] [address] 202 [place] [address] Social History Tobacco Use Types [...] PM EDT Telemedicine Cancer Center at [address] [place] [address] Ronald Mills MD [address] [place] [phone] documented as of this encounter Visit Diagnoses Not on filedocumented in this encounter Additional Health Concerns Assessment Noted Time PHQ-9 Depression Total Score: 2 11/07/19 19 2:06 PM EDT documented as of this encounter Care Teams Youth Coordinator Relationship Specialty Start Date End Date Caitlyn Bowie MD [address] [address] PCP - General Internal Medicine 05/06/21 documented as of this encounter
--- OUTSIDE RECORDS SUMMARY | 2025-04-22 21:18 | XMS_ITS | Encounter Summary ---
Author Organization [facility] and [facility] Address [address] [place] [address] Care Team Providers Care Manager Perioperative Name Role Phone Caitlyn Bowie MD Primary Care Provider +1- [phone] Encounter Details Date Type Department Care Team (Late st Contact Info) Description 09/28/2015 Scanned Document [facility] Health Information Management [address] [place] [address] External, Provider Social History Tobacco Use Types [...] [facility] 240 [facility] Building [address] [place], [place] [phone] Ronald Mills MD 240 [facility] Max A1 [place] [address] documented as of this encounter Procedures Procedure Name Priority Date/Time Associated Diagnosis Comments LAB SCAN Routine 09/09/2015 documented in this encounter Results * Lab Scan (09/09/2015) Blood specimen (specimen) us Provider External LAB BLOOD ORDERABLES Final Res ult [facility] documented in this encounter Visit Diagnoses Not on filedocumented in this encounter Additional Health Concerns Infection Onset Date Last Indicated Resolved Time COVID-19 03/05/2022 03/05/2022 03/15/2022 7:18 PM EDT documented as of this encounter Care Teams Manager Perioperative Relationship Specialty Start Date End Date Caitlyn Bowie MD 3400 [facility] 1 [place] [address] PCP - General Internal Medicine 05/06/21 Henry Kelly MD Pulmonary Department 175 [facility], [address] [place] [address] Physician Pulmonary Disease 09/06/17 06/22/20 documented as of this encounter
--- OUTSIDE RECORDS SUMMARY | 2025-04-22 21:18 | XMS_ITS | Encounter Summary ---
Author Organization [facility] Address [address] [place] [address] Care Team Providers Care Asp Net Programmer Name Role Phone Caitlyn Bowie MD Primary Care Provider +1- [phone] Encounter Details Date Type Department Care Team (Late st Contact Info) Description 04/13/2023 Scanned Document INTERFACE DEFAULT [address] [place] [address] System, Provider Not In Social History Tobacco [...] at [facility] 240 [facility] Building [address] [place] [address] Ronald Mills MD [address] [place] [address] [address] [place] [address] documented as of this encounter [...] of this encounter Care Teams Asp Net Programmer Relationship Specialty Start Date End Date Caitlyn Bowie MD [address] [address] PCP - General Internal Medicine 05/06/21 documented as of this encounter
--- OUTSIDE RECORDS SUMMARY | 2025-04-22 21:18 | XMS_ITS | Encounter Summary ---
Author Organization [facility] Address [address] [place] [address] Phone Care Team Providers Care Filament Tester Name Role Phone Caitlyn Bowie MD Primary Care Provider +1- [phone] Encounter Details Date Type Department Care Team (Late Contact Info) Description 12/10/2024 Documentation Only [facility] [address] [place] [address] Marina Abdi [address] [place] [address] Social History Tobacco Use Types [...] Visit [facility] [address] [place] [address] Rubén Ashraf MD [address] [place] [address] [place] [address] documented as of this encounter Visit Diagnoses Not on filedocumented in this encounter Care Teams Filament Tester Relationship Specialty Start Date End Date Caitlyn Bowie MD 3400 [place], [place] PCP - General Internal Medicine 09/24/24 documented as of this encounter
--- OUTSIDE RECORDS SUMMARY | 2025-04-22 21:18 | XMS_ITS | Encounter Summary ---
Author Organization [facility] and [facility] Address [address] [place] [address] Care Team Providers Care Wind Field Service Manager Name Role Phone Caitlyn Bowie MD Primary Care Provider +1- [phone] Encounter Details Date Type Department Care Team (Late st Contact Info) Description 08/16/2012 Abstract [facility] Health Information Management [address] [place] [address] [place], Primary Care [address] [place] [address] Social History Tobacco Use Types Packs/Day Years [...] PM EDT Telemedicine Cancer Center at [address] [place], [place] [address] Ronald Mills MD 240 [facility] Max [address] [place] [address] documented as of this encounter Visit Diagnoses Not on filedocumented in this encounter Additional Health Concerns Infection Onset Date Last Indicated Resolved Time COVID-19 03/05/2022 03/05/2022 03/15/2022 7:18 PM EDT documented as of this encounter Care Teams Wind Field Service Manager Relationship Specialty Start Date End Date Caitlyn Bowie MD 3400 [facility] 1 [place] [address] PCP - General Internal Medicine 05/06/21 Henry Kelly MD Pulmonary Department [address] [place] [address], [address] [place] [address] Physician Pulmonary Disease 09/06/17 06/22/20 documented as of this encounter
--- OUTSIDE RECORDS SUMMARY | 2025-04-22 21:18 | XMS_ITS | Encounter Summary ---
Author Organization [facility] and [facility] Address [address] [place] [address] Care Team Providers Care Hat Mender Name Role Phone Caitlyn Bowie MD Primary Care Provider +1- [phone] Encounter Details Date Type Department Care Team (Late st Contact Info) Description 12/03/2019 Scanned Document [facility] Health Information Management [address] [place] [address] External, Provider Social History Tobacco Use Types [...] [facility] Building [address] [place] [address] Ronald Mills MD [address] [place] [address] [address] [place] [address] documented as of this encounter Visit Diagnoses Not on filedocumented in this encounter Additional Health Concerns Infection Onset Date Last Indicated Resolved Time COVID-19 03/05/2022 03/05/2022 03/15/2022 7:18 PM EDT Assessment Noted Time PHQ-9 Depression Total Score: 2 11/07/19 19 2:06 PM EDT documented as of this encounter Care Teams Hat Mender Relationship Specialty Start Date End Date Caitlyn Bowie MD 3400 [facility] 1 [place] [address] PCP - General Internal Medicine 05/06/21 Henry Kelly MD Pulmonary Department 175 [facility], [address] [place] [address] Physician Pulmonary Disease 09/06/17 06/22/20 documented as of this encounter
--- OUTSIDE RECORDS SUMMARY | 2025-04-22 21:18 | XMS_ITS | Encounter Summary ---
Author Organization [facility] Address [address] [place] [address] Care Team Providers Care Collector Name Role Phone Caitlyn Bowie MD Primary Care Provider +1- [phone] Encounter Details Date Type Department Care Team (Late st Contact Info) Description 06/20/2022 Scanned Document INTERFACE DEFAULT [address] [place] [address] System, Provider Not In Social History Tobacco [...] [facility] 240 [facility] Building [address] [place], [place] [address] Ronald Mills MD [address] [place] [address] [address]1 [place] [address] documented as of this encounter [...] documented as of this encounter Care Teams Collector Relationship Specialty Start Date End Date Caitlyn Bowie MD [facility] [address] [address] PCP - General Internal Medicine 05/06/21 documented as of this encounter
--- OUTSIDE RECORDS SUMMARY | 2025-04-22 21:18 | XMS_ITS | Encounter Summary ---
Author Organization [facility] and [facility] Address [address] [place] [address] Care Team Providers Care Php Mysql Web Developer Name Role Phone Caitlyn Bowie MD Primary Care Provider +1- [phone] Encounter Details Date Type Department Care Team (Late st Contact Info) Description 06/27/2019 Scanned Document Onco-Oncology Program at [address] [place] [address] Norma Renee MD [address] [place] [address] 2 [place] [address] Social History Tobacco Use Types [...] PM EDT Telemedicine Cancer Center at [address] [place], [place] [address] Ronald Mills MD 240 [facility] A1 [place] [address] documented as of this encounter Visit Diagnoses Not on filedocumented in this encounter Additional Health Concerns Infection Onset Date Last Indicated Resolved Time COVID-19 03/05/2022 03/05/2022 03/15/2022 7:18 PM EDT Assessment Noted Time PHQ-9 Depression Total Score: 2 11/07/19 19 2:06 PM EDT documented as of this encounter Care Teams Php Mysql Web Developer Relationship Specialty Start Date End Date Caitlyn Bowie MD 3400 [facility] 1 [place] [address] PCP - General Internal Medicine 05/06/21 Henry Kelly MD Pulmonary Department 175 [facility], [address] [place] [address] Physician Pulmonary Disease 09/06/17 06/22/20 documented as of this encounter
--- OUTSIDE RECORDS SUMMARY | 2025-04-22 21:18 | XMS_ITS | Encounter Summary ---
Author Organization [facility] Address [address] [place] [address] Phone Care Team Providers Care School Guard Name Role Phone Caitlyn Bowie MD Primary Care Provider +1- [phone] Encounter Details Date Type Department Care Team (Late Contact Info) Description 12/10/2024 Documentation Only [facility] [address] [place] [address] Marina Abdi [address] [place] [address] Social History Tobacco Use Types [...] [facility] [address] [place] [address] Rubén Ashraf MD [address] [place] [address] [place] [address] documented as of this encounter Visit Diagnoses Not on filedocumented in this encounter Care Teams School Guard Relationship Specialty Start Date End Date Caitlyn Bowie MD 3400 [place], [place] PCP - General Internal Medicine 09/24/24 documented as of this encounter
--- OUTSIDE RECORDS SUMMARY | 2025-04-22 21:18 | XMS_ITS | Encounter Summary ---
Author Organization [facility] Address [address] [place] [address] Care Team Providers Care Senior Statistician Name Role Phone Caitlyn Bowie MD Primary Care Provider +1- [phone] Encounter Details Date Type Department Care Team (Late st Contact Info) Description 06/08/2022 Scanned Document INTERFACE DEFAULT [address] [place] [address] System, Provider Not In Social History Tobacco [...] [facility] 240 [facility] Building [address] [place], [place] [phone] Ronald Mills MD [address] [place] [address] [address]1 [place] [address] documented as of this encounter [...] as of this encounter Care Teams Senior Statistician Relationship Specialty Start Date End Date Caitlyn Bowie MD [address] [address] PCP - General Internal Medicine 05/06/21 documented as of this encounter
--- OUTSIDE RECORDS SUMMARY | 2025-04-22 21:18 | XMS_ITS | Encounter Summary ---
Author Organization [facility] Address 20 [place] [address] Care Team Providers Care Tour Escort Name Role Phone Caitlyn Bowie MD Primary Care Provider +1- [phone] Encounter Details Date Type Department Care Team (Late st Contact Info) Description 01/31/2023 Abstract [facility] 35 [facility]8 [place] [address] Shilpi Romero, AVELINO Social History Tobacco Use [...] [facility] 240 [facility] Building [address] [place] [address] Ronald Mills MD [address] [place] [address] [address] [place] [address] documented as of this encounter Visit Diagnoses Not on filedocumented in this encounter Additional Health Concerns Assessment Noted Time PHQ-9 Depression Total Score: 2 11/07/19 19 2:06 PM EDT documented as of this encounter Care Teams Tour Escort Relationship Specialty Start Date End Date Caitlyn Bowie MD [address] [address] PCP - General Internal Medicine 05/06/21 documented as of this encounter
--- OUTSIDE RECORDS SUMMARY | 2025-04-22 21:18 | XMS_ITS | Encounter Summary ---
Author Organization [facility] Address [address] [place] [address] Phone Care Team Providers Care Rn Picu Name Role Phone Caitlyn Bowie MD Primary Care Provider +1- [phone] Encounter Details Date Type Department Care Team (Late Contact Info) Description 12/10/2024 Documentation Only [facility] [address] [place] [address] Marina Abdi 2150 [place] [address] Social History Tobacco Use Types [...] Visit [facility] [address] [place] [address] Rubén Ashraf MD [address] [place] [address] [place] [address] documented as of this encounter Visit Diagnoses Not on filedocumented in this encounter Care Teams Rn Picu Relationship Specialty Start Date End Date Caitlyn Bowie MD 3400 [place], [place] PCP - General Internal Medicine 09/24/24 documented as of this encounter
--- OUTSIDE RECORDS SUMMARY | 2025-04-22 21:18 | XMS_ITS | Encounter Summary ---
Author Organization [facility] Address [address] [place] [address] Care Team Providers Care Career Development Facilitator Name Role Phone Caitlyn Bowie MD Primary Care Provider +1- [phone] Encounter Details Date Type Department Care Team (Late st Contact Info) Description 06/27/2019 Scanned Document Onco-Oncology Program at [address] [place] [address] Norma Renee MD [address] [place] [address] 2 [place] [address] Social History Tobacco Use Types [...] PM EDT Telemedicine Cancer Center at [address] [place] [address] Ronald Mills MD 240 [facility] A1 [place] [address] documented as of this encounter Visit Diagnoses Not on filedocumented in this encounter Additional Health Concerns Infection Onset Date Last Indicated Resolved Time COVID-19 03/05/2022 03/05/2022 03/15/2022 7:18 PM EDT Assessment Noted Time PHQ-9 Depression Total Score: 2 11/07/19 19 2:06 PM EDT documented as of this encounter Care Teams Career Development Facilitator Relationship Specialty Start Date End Date Caitlyn Bowie MD 3400 [facility] 1 [place] [address] PCP - General Internal Medicine 05/06/21 Henry Kelly MD Pulmonary Department 175 [facility], [address] [place] [address] Physician Pulmonary Disease 09/06/17 06/22/20 documented as of this encounter
--- OUTSIDE RECORDS SUMMARY | 2025-04-22 21:18 | XMS_ITS | Encounter Summary ---
Author Organization [facility] and [facility] Address [address] [place] [address] Care Team Providers Care Hay Stacker Operator Name Role Phone Caitlyn Bowie MD Primary Care Provider +1- [phone] Encounter Details Date Type Department Care Team (Late st Contact Info) Description 04/19/2023 Scanned Document INTERFACE DEFAULT [address] [place] [address] System, Provider Not In Social History Tobacco [...] [facility] at [facility] [address] [facility] Building [address] [place], [place] [address] Ronald Mills MD [address] [place] [address] [address] [place] [address] documented as of this encounter [...] as of this encounter Care Teams Hay Stacker Operator Relationship Specialty Start Date End Date Caitlyn Bowie MD [address] [address] PCP - General Internal Medicine 05/06/21 documented as of this encounter
--- OUTSIDE RECORDS SUMMARY | 2025-04-22 21:18 | XMS_ITS | Encounter Summary ---
Author Organization [facility] Address 20 [place] [address] Care Team Providers Care Straightener Hand Name Role Phone Caitlyn Bowie MD Primary Care Provider +1- [phone] Encounter Details Date Type Department Care Team (Late st Contact Info) Description 04/26/2017 Scanned Document Cardiovascular Medicine at [address] [place] [address] Norma Renee MD [address] [place] [phone] Social History Tobacco Use Types Packs/Day Years [...] PM EDT Telemedicine Cancer Center at [address] [place], [place] [address] Ronald Mills MD 240 [facility] A1 [place] [address] documented as of this encounter Visit Diagnoses Not on filedocumented in this encounter Additional Health Concerns Infection Onset Date Last Indicated Resolved Time COVID-19 03/05/2022 03/05/2022 03/15/2022 7:18 PM EDT documented as of this encounter Care Teams Straightener Hand Relationship Specialty Start Date End Date Caitlyn Bowie MD 3400 [facility] Max 1 [place] [address] PCP - General Internal Medicine 05/06/21 eHnry Kelly MD Pulmonary Department 175 [facility], [address] [place] [address] Physician Pulmonary Disease 09/06/17 06/22/20 documented as of this encounter
--- OUTSIDE RECORDS SUMMARY | 2025-04-22 21:18 | XMS_ITS | Encounter Summary ---
Author Organization [facility] and [facility] Address 20 [place] [address] Care Team Providers Care Zig Zag Spring Machine Operator Name Role Phone Caitlyn Bowie MD Primary Care Provider +1- [phone] Encounter Details Date Type Department Care Team (Late st Contact Info) Description 07/08/2022 Scanned Document Cardiovascular Medicine at [address] [place], [place] [address] Norma Renee MD [address] [place] [phone] Social History Tobacco Use Types Packs/Day Years [...] PM EDT Telemedicine Cancer Center at [address] [place], [place] [address] Ronald Mills MD [address] [place] [address] A1 [place] [address] documented as of this encounter Visit Diagnoses Not on filedocumented in this encounter Additional Health Concerns Assessment Noted Time PHQ-9 Depression Total Score: 2 11/07/19 19 2:06 PM EDT documented as of this encounter Care Teams Zig Zag Spring Machine Operator Relationship Specialty Start Date End Date Caitlyn Bowie MD [address] [address] PCP - General Internal Medicine 05/06/21 documented as of this encounter
--- OUTSIDE RECORDS SUMMARY | 2025-04-22 21:18 | XMS_ITS | Encounter Summary ---
Author Organization [facility] and [facility] Address [address] [place] [address] Care Team Providers Care Brooch Maker Novelty Name Role Phone Caitlyn Bowie MD Primary Care Provider +1- [phone] Encounter Details Date Type Department Care Team (Late st Contact Info) Description 11/29/[address] [facility] Health Information Management [address] [place] [address] External, Provider Social History Tobacco Use Types [...] [facility] 240 [facility] Building [address] [place], [place] [address] Ronald Mills MD [address] [place] [address] [address]1 [place] [address] documented as of this encounter [...] Bowie MD 3400 [facility] 1 [place] [address] PCP - General Internal Medicine 05/06/21 Henry Kelly MD Pulmonary Department 175 [facility], [address] [place] [address] Physician Pulmonary Disease 09/06/17 06/22/20 documented as of this encounter
--- OUTSIDE RECORDS SUMMARY | 2025-04-22 21:18 | XMS_ITS | Encounter Summary ---
Author Organization [facility] and [facility] Address 20 [place] [address] Care Team Providers Care Teller Vault Name Role Phone Caitlyn Bowie MD Primary Care Provider +1- [phone] Encounter Details Date Type Department Care Team (Late st Contact Info) Description 09/24/2015 Scanned Document Digestive Diseases at 40 [facility] [address] [place] [address] Kevin Espinoza MD [address] [place] [address] Social History Tobacco Use Types Packs/Day [...] PM EDT Telemedicine Cancer Center at [address] [place], [place] [address] Ronald Mills MD [address] [place] [address] [address]1 [place] [address] documented as of this encounter Visit Diagnoses Not on filedocumented in this encounter Additional Health Concerns Infection Onset Date Last Indicated Resolved Time COVID-19 03/05/2022 03/05/2022 03/15/2022 7:18 PM EDT documented as of this encounter Care Teams Teller Vault Relationship Specialty Start Date End Date Caitlyn Bowie MD 3400 [facility] 1 [place] [address] PCP - General Internal Medicine 05/06/21 Henry Kelly MD Pulmonary Department 175 [facility], [address] [place] [address] Physician Pulmonary Disease 09/06/17 06/22/20 documented as of this encounter
--- OUTSIDE RECORDS SUMMARY | 2025-04-22 21:18 | XMS_ITS | Encounter Summary ---
Author Organization [facility] Address [address] [place] [address] Phone Care Team Providers Care News Clerk Name Role Phone Caitlyn Bowie MD Primary Care Provider +1- [phone] Encounter Details Date Type Department Care Team (Late st Contact Info) Description 10/10/2024 Documentation Only [facility] [address] [place] [address] Ron Taylor [place] [address] [place] [address] Social History Tobacco Use Types [...] Visit [facility] [address] [place] [address] Rubén Ashraf MD [address] [place] [address] [place] [address] documented as of this encounter Visit Diagnoses Not on filedocumented in this encounter Care Teams News Clerk Relationship Specialty Start Date End Date Caitlyn Bowie MD 3400 [place], [place] PCP - General Internal Medicine 09/24/24 documented as of this encounter
--- OUTSIDE RECORDS SUMMARY | 2025-04-22 21:18 | XMS_ITS | Encounter Summary ---
Author Organization [facility] Address [address] [place] [address] Care Team Providers Care Airport Location Manager Name Role Phone Caitlyn Bowie MD Primary Care Provider +1- [phone] Encounter Details Date Type Department Care Team (Late st Contact Info) Description 06/27/2022 Scanned Document INTERFACE DEFAULT [address] [place] [address] System, Provider Not In Social History Tobacco [...] [facility] at [facility] 240 [facility] Building [address] [place], [place] [address] Ronald Mills MD [address] [place] [address] [address] [place] [address] documented as of this encounter [...] documented as of this encounter Care Teams Airport Location Manager Relationship Specialty Start Date End Date Caitlyn Bowie MD [facility] [address] [address] PCP - General Internal Medicine 05/06/21 documented as of this encounter
--- OUTSIDE RECORDS SUMMARY | 2025-04-22 21:18 | XMS_ITS | Encounter Summary ---
Author Organization [facility] Address [address] [place] [address] Care Team Providers Care Deputy Sheriff K9 Handler Name Role Phone Caitlyn Bowie MD Primary Care Provider +1- [phone] Encounter Details Date Type Department Care Team (Late st Contact Info) Description 07/28/2022 Scanned Document Onco-Oncology Program at [address] [place] [address] Norma Renee MD [address] [place] [address] 2 [place] [address] Social History Tobacco Use Types [...] PM EDT Telemedicine Cancer Center at [address] [place], [place] [address] Ronald Mills MD 240 [facility] A1 [place] [address] documented as of this encounter Visit Diagnoses Not on filedocumented in this encounter Additional Health Concerns Assessment Noted Time PHQ-9 Depression Total Score: 2 11/07/19 19 2:06 PM EDT documented as of this encounter Care Teams Deputy Sheriff K9 Handler Relationship Specialty Start Date End Date Caitlyn Bowie MD [address] [address] PCP - General Internal Medicine 05/06/21 documented as of this encounter
--- OUTSIDE RECORDS SUMMARY | 2025-04-22 21:18 | XMS_ITS | Encounter Summary ---
Author Organization [facility] Address [address] [place] [address] Care Team Providers Care Forensic Manager Name Role Phone Caitlyn Bowie MD Primary Care Provider +1- [phone] Encounter Details Date Type Department Care Team (Late st Contact Info) Description 10/24/2022 Scanned Document INTERFACE DEFAULT [address] [place] [address] System, Provider Not In Social History Tobacco [...] [facility] 240 [facility] Building [address] [place], [place] [address] Ronald Mills MD [address] [place] [address] [address] [place] [address] documented as of this encounter [...] as of this encounter Care Teams Forensic Manager Relationship Specialty Start Date End Date Caitlyn Bowie MD [facility] [address] [address] PCP - General Internal Medicine 05/06/21 documented as of this encounter
--- OUTSIDE RECORDS SUMMARY | 2025-04-22 21:18 | XMS_ITS | Encounter Summary ---
Author Organization [facility] and [facility] Address [address] [place] [address] Care Team Providers Care Rapid Outsole Stitcher Name Role Phone Caitlyn Bowie MD Primary Care Provider +1- [phone] Encounter Details Date Type Department Care Team (Late st Contact Info) Description 09/02/2021 Scanned Document INTERFACE DEFAULT [address] [place] [address] System, Provider Not In Social History Tobacco [...] Medical Center Building [address] [place], [place] [address] Ronald Mills MD [address] [place] [address] [address] [place] [address] documented as of this encounter [...] documented as of this encounter Care Teams Rapid Outsole Stitcher Relationship Specialty Start Date End Date Caitlyn Bowie MD [address] [address] PCP - General Internal Medicine 05/06/21 documented as of this encounter
--- OUTSIDE RECORDS SUMMARY | 2025-04-22 21:18 | XMS_ITS | Encounter Summary ---
Author Organization [facility] and [facility] Address [address] [place] [address] Care Team Providers Care Golf Course Mechanic Name Role Phone Caitlyn Bowie MD Primary Care Provider +1- [phone] Reason for Visit * Reason Comments Advice Only mass Encounter Details Date Type Department Care Team (Late st Contact Info) Description 09/06/2021 Telephone [facility] at [address] [address] Ronald Mills MD [address] [place] [address] Advice Only (mass) Social History Tobacco [...] [facility] at [facility] 240 [facility] Building [address] [place], [place] [address] Ronald Mills MD 240 [facility] Max [address]1 [place] [address] documented as of this encounter Visit Diagnoses Not on filedocumented in this encounter Additional Health Concerns Infection Onset Date Last Indicated Resolved Time COVID-19 03/05/2022 03/05/2022 03/15/2022 7:18 PM EDT Assessment Noted Time PHQ-9 Depression Total Score: 2 11/07/19 19 2:06 PM EDT documented as of this encounter Care Teams Golf Course Mechanic Relationship Specialty Start Date End Date Caitlyn Bowie MD [address] [address] PCP - General Internal Medicine 05/06/21 documented as of this encounter
--- OUTSIDE RECORDS SUMMARY | 2025-04-22 21:18 | XMS_ITS | Encounter Summary ---
Author Organization [facility] Address [address] [place] [address] Phone Care Team Providers Care Director Life Insurance Name Role Phone Caitlyn Bowie MD Primary Care Provider +1- [phone] Encounter Details Date Type Department Care Team (Late Contact Info) Description 12/10/2024 Documentation Only [facility] [address] [place] [address] Marina Abdi 2150 [place] [address] Social History Tobacco Use Types [...] [facility] [address] [place] [address] Rubén Ashraf MD [address] [place] [address] [place] [address] documented as of this encounter Visit Diagnoses Not on filedocumented in this encounter Care Teams Director Life Insurance Relationship Specialty Start Date End Date Caitlyn Bowie MD 3400 [place], [place] PCP - General Internal Medicine 09/24/24 documented as of this encounter
--- OUTSIDE RECORDS SUMMARY | 2025-04-22 21:18 | XMS_ITS | Encounter Summary ---
Author Organization [facility] and [facility] Address [address] [place] [address] Care Team Providers Care Wafer Polisher Name Role Phone Caitlyn Bowie MD Primary Care Provider +1- [phone] Encounter Details Date Type Department Care Team (Late st Contact Info) Description 09/01/2023 Scanned Document INTERFACE DEFAULT [address] [place] [address] System, Provider Not In Social History Tobacco [...] [facility] [address] [facility] [address] [place] [address] Ronald Mills MD [address] [place] [address] [address] [place] [address] documented as of this encounter Visit Diagnoses Not on filedocumented in this encounter Additional Health Concerns Assessment Noted Time PHQ-9 Depression Total Score: 2 11/07/19 19 2:06 PM EDT documented as of this encounter Care Teams Wafer Polisher Relationship Specialty Start Date End Date Caitlyn Bowie MD [address] [address] PCP - General Internal Medicine 05/06/21 documented as of this encounter
--- OUTSIDE RECORDS SUMMARY | 2025-04-22 21:18 | XMS_ITS | Encounter Summary ---
Author Organization [facility] and [facility] Address 20 [place] [address] Care Team Providers Care Rn Informatics Name Role Phone Caitlyn Bowie MD Primary Care Provider +1- [phone] Encounter Details Date Type Department Care Team (Late st Contact Info) Description 01/28/2013 Scanned Document Thoracic Oncology Program at [address] [address] Solo Henry MD [address] [place] [address] Social History Tobacco Use Types Packs/Day [...] [facility] 240 [facility] [address] [place], [place] [address] Ronald Mills MD 240 [facility] [address] [place] [address] documented as of this encounter Visit Diagnoses Not on filedocumented in this encounter Additional Health Concerns Infection Onset Date Last Indicated Resolved Time COVID-19 03/05/2022 03/05/2022 03/15/2022 7:18 PM EDT documented as of this encounter Care Teams Rn Informatics Relationship Specialty Start Date End Date Caitlyn Bowie MD 3400 [facility] Max 1 [place] [address] PCP - General Internal Medicine 05/06/21 Henry Kelly MD Pulmonary Department 175 [facility], [address] [place] [address] Physician Pulmonary Disease 09/06/17 06/22/20 documented as of this encounter
--- OUTSIDE RECORDS SUMMARY | 2025-04-22 21:18 | XMS_ITS | Encounter Summary ---
Author Organization [facility] and [facility] Address [address] [place] [address] Care Team Providers Care Physician Recruiter Name Role Phone Caitlyn Bowie MD Primary Care Provider +1- [phone] Encounter Details Date Type Department Care Team (Late st Contact Info) Description 11/26/2019 Scanned Document Cancer Center at [address] [address] External, Provider Social History Tobacco Use Types [...] Telemedicine Cancer Center at [facility] 240 [facility] Building [address] [place], [place] [phone] Ronald Mills MD [address] [place] [address] [address]1 [place] [address] documented as of [...] as of this encounter Care Teams Physician Recruiter Relationship Specialty Start Date End Date Caitlyn Bowie MD 3400 [facility] 1 [place] [address] PCP - General Internal Medicine 05/06/21 Henry Kelly MD Pulmonary Department 175 [facility], [address] [place] [address] Physician Pulmonary Disease 09/06/17 06/22/20 documented as of this encounter
--- OUTSIDE RECORDS SUMMARY | 2025-04-22 21:18 | XMS_ITS | Encounter Summary ---
Author Organization [facility] Address [address] [place] [address] Care Team Providers Care Auto Finance Sales Rep Name Role Phone Caitlyn Bowie MD Primary Care Provider +1- [phone] Encounter Details Date Type Department Care Team (Late st Contact Info) Description 06/21/2022 Scanned Document INTERFACE DEFAULT [address] [place] [address] System, Provider Not In Social History Tobacco [...] Center at [facility] 240 [facility] Building [address] [place], [place] [phone] Ronald Mills MD [address] [place] [address] [address] [place] [address] documented as of this encounter [...] as of this encounter Care Teams Auto Finance Sales Rep Relationship Specialty Start Date End Date Caitlyn Bowie MD [address] [address] PCP - General Internal Medicine 05/06/21 documented as of this encounter
--- OUTSIDE RECORDS SUMMARY | 2025-04-22 21:18 | XMS_ITS | Encounter Summary ---
Author Organization [facility] Address [address] [place] [address] Phone Care Team Providers Care Firer Tunnel Kiln Name Role Phone Caitlyn Bowie MD Primary Care Provider +1- [phone] Encounter Details Date Type Department Care Team (Late Contact Info) Description 12/10/2024 Documentation Only [facility] [address] [place] [address] Marina Abdi [address] [place] [address] Social History Tobacco Use Types [...] Visit [facility] [address] [place] [address] Rubén Ashraf MD [address] [place] [address] [place] [address] documented as of this encounter Visit Diagnoses Not on filedocumented in this encounter Care Teams Firer Tunnel Kiln Relationship Specialty Start Date End Date Caitlyn Bowie MD [address] [place], [place] PCP - General Internal Medicine 09/24/24 documented as of this encounter
--- OUTSIDE RECORDS SUMMARY | 2025-04-22 21:18 | XMS_ITS | Encounter Summary ---
Author Organization [facility] and [facility] Address [address] [place] [address] Care Team Providers Care Housekeeping Supervisor Name Role Phone Caitlyn Bowie MD Primary Care Provider +1- [phone] Encounter Details Date Type Department Care Team (Late st Contact Info) Description 07/01/2019 Scanned Document Onco-Oncology Program at [address] [place] [address] Norma Renee MD [address] [place] [address] 2 [place] [phone] Social History Tobacco Use Types Packs/Day Years [...] PM EDT Telemedicine Cancer Center at [address] [place], [place] [phone] Ronald iMlls MD 240 [facility] [address]1 [place] [address] documented as of this encounter Visit Diagnoses [...] 3400 [facility] 1 [place] [address] PCP - General Internal Medicine 05/06/21 Henry Kelly MD Pulmonary Department 175 [facility], [address] [place] [address] Physician Pulmonary Disease 09/06/17 06/22/20 documented as of this encounter
--- OUTSIDE RECORDS SUMMARY | 2025-04-22 21:18 | XMS_ITS | Encounter Summary ---
Author Organization [facility] Address 20 [place] [address] Care Team Providers Care Batch And Furnace Manager Name Role Phone Caitlyn Bowie MD Primary Care Provider +1- [phone] Encounter Details Date Type Department Care Team (Late st Contact Info) Description 01/22/2020 Scanned Document [facility] for [facility] 800 [place] [address] Kerwin Menjivar MD 260 [facility] 3 [place] [address] Social History Tobacco Use Types [...] PM EDT Telemedicine Cancer Center at [address] [place] [address] Ronald Mills MD 240 [facility] Max [address] [place] [address] documented as of this encounter Visit Diagnoses Not on filedocumented in this encounter Additional Health Concerns Infection Onset Date Last Indicated Resolved Time COVID-19 03/05/2022 03/05/2022 03/15/2022 7:18 PM EDT Assessment Noted Time PHQ-9 Depression Total Score: 2 11/07/19 19 2:06 PM EDT documented as of this encounter Care Teams Batch And Furnace Manager Relationship Specialty Start Date End Date Caitlyn Bowie MD [address] [address] PCP - General Internal Medicine 05/06/21 Henry Kelly MD Pulmonary Department [address] [place] [address], [address] [place] [address] Physician Pulmonary Disease 09/06/17 06/22/20 documented as of this encounter
--- OUTSIDE RECORDS SUMMARY | 2025-04-22 21:18 | XMS_ITS | Encounter Summary ---
Author Organization [facility] Address 20 [place] [address] Care Team Providers Care Printing Plate Clerk Name Role Phone Caitlyn Bowie MD Primary Care Provider +1- [phone] Encounter Details Date Type Department Care Team (Late st Contact Info) Description 01/28/2013 Scanned Document Thoracic Oncology Program at [address] [address] Solo Henry MD [address] [place] [address] Social History Tobacco Use Types Packs/Day [...] Center at [facility] 240 [facility] Building [address] [place], [place] [address] Ronald Mills MD 240 [facility] Max [address] [place] [address] documented as of this encounter Visit Diagnoses Not on filedocumented in this encounter Additional Health Concerns Infection Onset Date Last Indicated Resolved Time COVID-19 03/05/2022 03/05/2022 03/15/2022 7:18 PM EDT documented as of this encounter Care Teams Printing Plate Clerk Relationship Specialty Start Date End Date Caitlyn Bowie MD 3400 [facility] Max 1 [place] [address] PCP - General Internal Medicine 05/06/21 Henry Kelly MD Pulmonary Department 175 [facility], [address] [place] [address] Physician Pulmonary Disease 09/06/17 06/22/20 documented as of this encounter
--- OUTSIDE RECORDS SUMMARY | 2025-04-22 21:18 | XMS_ITS | Encounter Summary ---
Author Organization [facility] Address [address] [place] [address] Care Team Providers Care Top Former Name Role Phone Caitlyn Bowie MD Primary Care Provider +1- [phone] Encounter Details Date Type Department Care Team (Late st Contact Info) Description 07/06/2021 Scanned Document INTERFACE DEFAULT [address] [place] [address] System, Provider Not In Social History Tobacco [...] [facility] 240 [facility] Building [address] [place] [address] Ronald Mills MD [address] [place] [address] [address] [place] [address] documented as of this encounter Visit Diagnoses Not on filedocumented in this encounter Additional Health Concerns Infection Onset Date Last Indicated Resolved Time COVID-19 03/05/2022 03/05/2022 03/15/2022 7:18 PM EDT Assessment Noted Time PHQ-9 Depression Total Score: 2 11/07/19 19 2:06 PM EDT documented as of this encounter Care Teams Top Former Relationship Specialty Start Date End Date Caitlyn Bowie MD [address] [address] PCP - General Internal Medicine 05/06/21 documented as of this encounter
--- OUTSIDE RECORDS SUMMARY | 2025-04-22 21:18 | XMS_ITS | Encounter Summary ---
Author Organization [facility] and [facility] Address [address] [place] [address] Care Team Providers Care Physical Therapy Asst Name Role Phone Caitlyn Bowie MD Primary Care Provider +1- [phone] Encounter Details Date Type Department Care Team (Late st Contact Info) Description 05/17/2023 Scanned Document INTERFACE DEFAULT [address] [place] [address] System, Provider Not In Social History Tobacco [...] [facility] Building [address] [place], [place] [address] Ronald Mills MD [address] [place] [address] [address] [place] [address] documented as of this [...] as of this encounter Care Teams Physical Therapy Asst Relationship Specialty Start Date End Date Caitlyn Bowie MD [address] [address] PCP - General Internal Medicine 05/06/21 documented as of this encounter
--- OUTSIDE RECORDS SUMMARY | 2025-04-22 21:18 | XMS_ITS | Encounter Summary ---
Author Organization [facility] and [facility] Address [address] [place] [address] Care Team Providers Care Locum Tenens Psychiatrist Name Role Phone Caitlyn Bowie MD Primary Care Provider +1- [phone] Encounter Details Date Type Department Care Team (Late st Contact Info) Description 07/07/2021 Scanned Document INTERFACE DEFAULT [address] [place] [address] System, Provider Not In Social History Tobacco [...] [facility] 240 [facility] Building [address] [place] [address] Ronald Mills MD [address] [place] [address] [address]1 [place] [address] documented as of this encounter Visit Diagnoses Not on filedocumented in this encounter Additional Health Concerns Infection Onset Date Last Indicated Resolved Time COVID-19 03/05/2022 03/05/2022 03/15/2022 7:18 PM EDT Assessment Noted Time PHQ-9 Depression Total Score: 2 11/07/19 19 2:06 PM EDT documented as of this encounter Care Teams Locum Tenens Psychiatrist Relationship Specialty Start Date End Date Caitlyn Bowie MD [address] [address] PCP - General Internal Medicine 05/06/21 documented as of this encounter
--- OUTSIDE RECORDS SUMMARY | 2025-04-22 21:19 | XMS_ITS | Encounter Summary ---
Author Organization [facility] and [facility] Address [address] [place] [address] Care Team Providers Care Mainspring Strip Inspector Name Role Phone Caitlyn Bowie MD Primary Care Provider +1- [phone] Encounter Details Date Type Department Care Team (Late st Contact Info) Description 09/09/2015 Scanned Document [facility] Health Information Management [address] [place] [address] External, Provider Social History Tobacco Use Types [...] [facility] Center at [facility] 240 [facility] Building [address] [place], [place] [phone] Ronald Mills MD 240 [facility] Max [address] [place] [address] documented as of this encounter Procedures Procedure Name Priority Date/Time Associated Diagnosis Comments LAB SCAN Routine 09/09/2015 documented in this encounter Results * Lab Scan (09/09/2015) Blood specimen (specimen) us Provider External LAB BLOOD ORDERABLES Final Res ult Performing Organization Address City/State/[facility] Co de Phone Number [facility] documented in this encounter Visit Diagnoses Not on filedocumented in this encounter Additional Health Concerns Infection Onset Date Last Indicated Resolved Time COVID-19 03/05/2022 03/05/2022 03/15/2022 7:18 PM EDT documented as of this encounter Care Teams Mainspring Strip Inspector Relationship Specialty Start Date End Date Caitlyn Bowie MD 3400 [facility] 1 [place] [address] PCP - General Internal Medicine 05/06/21 Henry Kelly MD Pulmonary Department 175 [facility], [address] [place] [address] Physician Pulmonary Disease 09/06/17 06/22/20 documented as of this encounter
--- OUTSIDE RECORDS SUMMARY | 2025-04-22 21:19 | XMS_ITS | Encounter Summary ---
Author Organization [facility] and [facility] Address [address] [place] [address] Care Team Providers Care Loss Prevention Manager Name Role Phone Caitlyn Bowie MD Primary Care Provider +1- [phone] Encounter Details Date Type Department Care Team (Late st Contact Info) Description 06/07/2017 Scanned Document [facility] Health Information Management [address] [place] [address] External, Provider Social History Tobacco Use [...] Center at [facility] 240 [facility] Building [address] [place], [place] [address] Ronald Mills MD [address] [place] [address] [address]1 [place] [address] documented as of this encounter [...] of this encounter Care Teams Loss Prevention Manager Relationship Specialty Start Date End Date Caitlyn Bowie MD 3400 [facility] 1 [place] [address] PCP - General Internal Medicine 05/06/21 Henry Kelly MD Pulmonary Department 175 [facility], [address] [place] [address] Physician Pulmonary Disease 09/06/17 06/22/20 documented as of this encounter
--- OUTSIDE RECORDS SUMMARY | 2025-04-22 21:19 | XMS_ITS | Encounter Summary ---
Author Organization [facility] and [facility] Address [address] [place] [address] Care Team Providers Care Support Manager Name Role Phone Caitlyn Bowie MD Primary Care Provider +1- [phone] Encounter Details Date Type Department Care Team (Late st Contact Info) Description 04/21/2021 Scanned Document INTERFACE DEFAULT [address] [place] [address] System, Provider Not In Social History Tobacco [...] Center at [facility] 240 [facility] Building [address] [place], [place] [phone] Roanld Mills MD [address] [place] [address] [address] [place] [address] documented as of this encounter [...] as of this encounter Care Teams Support Manager Relationship Specialty Start Date End Date Caitlyn Bowie MD [facility] [address] [address] PCP - General Internal Medicine 05/06/21 documented as of this encounter
--- OUTSIDE RECORDS SUMMARY | 2025-04-22 21:19 | XMS_ITS | Encounter Summary ---
Author Organization [facility] Address [address] [place] [address] Care Team Providers Care Apprentice Painter Neckties Name Role Phone Caitlyn Bowie MD Primary Care Provider +1- [phone] Encounter Details Date Type Department Care Team (Late st Contact Info) Description 12/06/2018 Scanned Document [facility] Health Information Management [address] [place] [address] External, Provider Social History Tobacco Use Types [...] Cancer Center at [facility] 240 [facility] Building [address] [place], [place] [phone] Ronald Mills MD [address] [place] [address] [address]1 [place] [address] documented as of this encounter [...] as of this encounter Care Teams Apprentice Painter Neckties Relationship Specialty Start Date End Date Caitlyn Bowie MD [address] [facility] 1 [place] [address] PCP - General Internal Medicine 05/06/21 Henry Kelly MD Pulmonary Department 175 [facility], [address] [place] [address] Physician Pulmonary Disease 09/06/17 06/22/20 documented as of this encounter
--- OUTSIDE RECORDS SUMMARY | 2025-04-22 21:19 | XMS_ITS | Encounter Summary ---
Author Organization [facility] Address [address] [place] [address] Care Team Providers Care Public Relations Representative Name Role Phone Caitlyn Bowie MD Primary Care Provider +1- [phone] Encounter Details Date Type Department Care Team (Late st Contact Info) Description 03/02/2022 Scanned Document [facility] Health Information Management [address] [place] [address] External, Provider Social History Tobacco Use Types [...] [facility] 240 [facility] Building [address] [place], [place] [address] Ronald Mills MD [address] [place] [address] [address]1 [place] [address] documented as of this encounter Visit Diagnoses Not on filedocumented in this encounter Additional Health Concerns Infection Onset Date Last Indicated Resolved Time COVID-19 03/05/2022 03/05/2022 03/15/2022 7:18 PM EDT Assessment Noted Time PHQ-9 Depression Total Score: 2 11/07/19 19 2:06 PM EDT documented as of this encounter Care Teams Public Relations Representative Relationship Specialty Start Date End Date Caitlyn Bowie MD [address] [address] PCP - General Internal Medicine 05/06/21 documented as of this encounter
--- OUTSIDE RECORDS SUMMARY | 2025-04-22 21:19 | XMS_ITS | Encounter Summary ---
Author Organization [facility] and [facility] Address 20 [place] [address] Care Team Providers Care Marine Chronometer Assembler Name Role Phone Caitlyn Bowie MD Primary Care Provider +1- [phone] Encounter Details Date Type Department Care Team (Late st Contact Info) Description 05/10/2022 Scanned Document Cardiovascular Medicine at [address] [place], [place] [address] Norma Renee MD [address] [place] [phone] Social History Tobacco Use Types Packs/Day Years [...] PM EDT Telemedicine Cancer Center at [address] [place], [place] [address] Ronald Mills MD [address] [place] [address] [address]1 [place] [address] documented as of this encounter Visit Diagnoses Not on filedocumented in this encounter Additional Health Concerns Assessment Noted Time PHQ-9 Depression Total Score: 2 11/07/19 19 2:06 PM EDT documented as of this encounter Care Teams Marine Chronometer Assembler Relationship Specialty Start Date End Date Caitlyn Bowie MD [address] [address] PCP - General Internal Medicine 05/06/21 documented as of this encounter
--- OUTSIDE RECORDS SUMMARY | 2025-04-22 21:19 | XMS_ITS | Encounter Summary ---
Author Organization [facility] Address [address] [place] [address] Care Team Providers Care Boner Meat Name Role Phone Caitlyn Bowie MD Primary Care Provider +1- [phone] Encounter Details Date Type Department Care Team (Late st Contact Info) Description 04/28/2022 Scanned Document INTERFACE DEFAULT [address] [place] [address] System, Provider Not In Social History Tobacco [...] at [facility] 240 [facility] Building [address] [place], [place] [phone] Ronald Mills MD [address] [place] [address] [address] [place] [address] documented as of [...] documented as of this encounter Care Teams Boner Meat Relationship Specialty Start Date End Date Caitlyn Bowie MD [facility] [address] [address] PCP - General Internal Medicine 05/06/21 documented as of this encounter
--- OUTSIDE RECORDS SUMMARY | 2025-04-22 21:19 | XMS_ITS | Encounter Summary ---
Author Organization [facility] Address [address] [place] [address] Care Team Providers Care Mandrel Press Hand Name Role Phone Caitlyn Bowie MD Primary Care Provider +1- [phone] Encounter Details Date Type Department Care Team (Late st Contact Info) Description 04/12/2021 Scanned Document INTERFACE DEFAULT [address] [place] [address] System, Provider Not In Social History Tobacco [...] [facility] 240 [facility] Building [address] [place], [place] [address] Ronald Mills MD [address] [place] [address] [address] [place] [address] documented as of this encounter [...] documented as of this encounter Care Teams Mandrel Press Hand Relationship Specialty Start Date End Date Caitlyn Bowie MD [address] [address] PCP - General Internal Medicine 05/06/21 documented as of this encounter
--- OUTSIDE RECORDS SUMMARY | 2025-04-22 21:19 | XMS_ITS | Encounter Summary ---
Author Organization [facility] Address [address] [place] [address] Care Team Providers Care Director Of Curriculum And Instruction Name Role Phone Caitlyn Bowie MD Primary Care Provider +1- [phone] Encounter Details Date Type Department Care Team (Late st Contact Info) Description 09/09/2015 Scanned Document ON LICENSE OF [facility] Health Information Management [address] [place] [address] External, Provider Social History Tobacco Use Types [...] [facility] 240 [facility] [address] [place], [place] [id number] Ronald Mills MD 240 [facility] [address] [place] [address] documented as of this encounter Procedures Procedure Name Priority Date/Time Associated Diagnosis Comments LAB SCAN Routine 09/09/2015 documented in this encounter Results * Lab Scan (09/09/2015) Blood specimen (specimen) us Provider External LAB BLOOD ORDERABLES Final Res ult [facility] documented in this encounter Visit Diagnoses Not on filedocumented in this encounter Additional Health Concerns Infection Onset Date Last Indicated Resolved Time COVID-19 03/05/2022 03/05/2022 03/15/2022 7:18 PM EDT documented as of this encounter Care Teams Director Of Curriculum And Instruction Relationship Specialty Start Date End Date Caitlyn Bowie MD 3400 [facility] 1 [place] [address] PCP - General Internal Medicine 05/06/21 Henry Kelly MD Pulmonary Department 175 [facility], [address] [place] [address] Physician Pulmonary Disease 09/06/17 06/22/20 documented as of this encounter
--- OUTSIDE RECORDS SUMMARY | 2025-04-22 21:19 | XMS_ITS | Encounter Summary ---
Author Organization [facility] and [facility] Address [address] [place] [address] Care Team Providers Care Loading Machine Operator Helper Name Role Phone Caitlyn Bowie MD Primary Care Provider +1- [phone] Encounter Details Date Type Department Care Team (Late st Contact Info) Description 12/01/2015 Scanned Document [facility] Health Information Management [address] [place] [address] External, Provider Social History Tobacco Use Types [...] [facility] Building [address] [place], [place] [id number] Ronald Mills MD 240 [facility] [address] [place] [address] documented as of this encounter Procedures Procedure Name Priority Date/Time Associated Diagnosis Comments CT RESULT SCAN Routine 12/01/2015 documented in this encounter Results * CT Result Scan (12/01/2015) us Provider External IMG SCAN REPORTS Edited Result - Final [facility] [place], [facility] documented in this encounter Visit Diagnoses Not on filedocumented in this encounter Additional Health Concerns Infection Onset Date Last Indicated Resolved Time COVID-19 03/05/2022 03/05/2022 03/15/2022 7:18 PM EDT documented as of this encounter Care Teams Loading Machine Operator Helper Relationship Specialty Start Date End Date Caitlyn Bowie MD 3400 [facility] Max 1 [place] [address] PCP - General Internal Medicine 05/06/21 Henry Kelly MD Pulmonary Department 175 [facility], [address] [place] [address] Physician Pulmonary Disease 09/06/17 06/22/20 documented as of this encounter
--- OUTSIDE RECORDS SUMMARY | 2025-04-22 21:19 | XMS_ITS | Encounter Summary ---
Author Organization [facility] and [facility] Address [address] [place] [address] Care Team Providers Care Machine Learning Intern Name Role Phone Caitlyn Bowie MD Primary Care Provider +1- [phone] Encounter Details Date Type Department Care Team (Late st Contact Info) Description 01/08/2022 Scanned Document INTERFACE DEFAULT [address] [place] [address] System, Provider Not In Social History Tobacco [...] [facility] 240 [facility] [address] [place], [place] [phone] Ronald Mills MD [address] [place] [address] [address] [place] [address] documented as of this encounter [...] as of this encounter Care Teams Machine Learning Intern Relationship Specialty Start Date End Date Caitlyn Bowie MD [address] [address] PCP - General Internal Medicine 05/06/21 documented as of this encounter
--- OUTSIDE RECORDS SUMMARY | 2025-04-22 21:19 | XMS_ITS | Encounter Summary ---
Author Organization [facility] and [facility] Address [address] [place] [address] Care Team Providers Care Gravel Wheeler Name Role Phone Caitlyn Bowie MD Primary Care Provider +1- [phone] Encounter Details Date Type Department Care Team (Latest Contact Info) Description 12/25/2015 Transcribed Orders [facility] Draw [facility] [address] [facility] [place] [address] Osmel Briscoe MD Other abnormality of red [...] PM EDT Telemedicine Cancer Center at [address] [place], [place] [phone] Ronald Mills MD [address] [place] [address] [address] [place] [address] documented as of this encounter Results * Free kappa lambda with ratio, serum ( GH Q YH) (12/25/2015 10:09 AM EDT) Ig [place] Free Light Chain 1.84 0.33 - 1.94 mg/dL [facility] Ig Lambda Free Light Chain 1.96 0.57 - 2.63 mg/dL [facility] [place]/Lambda FLC Ratio 0.94 0.26 - 1.65 [facility] Blood specimen (specimen) 12/25/2015 10:09 AM EDT Osmel Briscoe MD LAB BLOOD ORDERABLES Final R esult Performing Organization Address [facility] Co de Phone Number [facility] [address] [place] [address] * Immunofixation, serum ( L Q YH) (12/25/2015 10:09 AM EDT) [facility] Immunofixation Electrophoresis Gel See below See Interp. [facility] Comment: INTERPRETATION: Normal immunofixation electrophoresis. No evidence of a serum monoclonal component. SIGNED BY:Keyur KAYE MD ON 12/29/2015 14:56:04 INTERPRETATION REVIEW : I have reviewed these results and agree with this interpretation. Blood specimen (specimen) 12/25/2015 10:09 AM EDT Osmel Briscoe MD LAB BLOOD ORDERABLES Final R esult Performing Organization Address [facility] Co de Phone Number [facility] [address] [place] [address] * (ABNORMAL) Protein electrophoresis, serum ( GH L YH) (12/25/2015 10:09 AM EDT) Albumin Electrophoresis 3.45(L) 3.50 - 4.70 g/dL [facility] Zopdb-4-Aqfwndqy 0.16 0.10 - 0.30 g/dL [facility] Cvsyy-0-Xaamzmrq 0.81 0.60 - 1.00 g/dL [facility] Beta Globulin 0.86 0.70 - 1.20 g/dL [facility] Gamma Globulin 0.92 0.70 - 1.50 g/dL [facility] SPEP Interpretation See below See Interp. [facility] Comment: INTERPRETATION: No discrete abnormal [...] ORDERABLES Final R esult Performing Organization Address City/[facility] Co de Phone Number [facility] [address] [place] [address] * Reticulocytes (GH L Q YH) (12/25/2015 10:09 AM EDT) Reticulocyte Count 2.1 0.6 - 2.7 % [facility] Blood specimen (specimen) 12/25/2015 10:09 AM EDT Osmel Briscoe MD LAB BLOOD ORDERABLES Final R esult Performing Organization Address [facility] Co de Phone Number [facility] [address] [place] [address] * (ABNORMAL) Sedimentation rate (ESR) (12/25/2015 10:09 AM EDT) Sed Rate 27(H) 0 - 20 mm/hr [facility] Blood specimen (specimen) 12/25/2015 10:09 AM EDT Osmel Briscoe MD LAB BLOOD ORDERABLES Final R esult Performing Organization Address [facility] Co de Phone Number [facility] [address] [place] [address] * Ferritin (12/25/2015 10:09 AM EDT) Ferritin 68 9 - 120 ng/mL [facility] Blood specimen (specimen) 12/25/2015 10:09 AM EDT Osmel Briscoe MD LAB BLOOD ORDERABLES Final R esult Performing Organization Address [facility] Co de Phone Number [facility] [address] [place] [address] * Iron and TIBC (12/25/2015 10:09 AM EDT) Iron 110 50 - 170 ug/dL [facility] TIBC 290 250 - 450 ug/dL [facility] Iron Saturation 38 15 - 50 [facility] Blood specimen (specimen) 12/25/2015 10:09 AM EDT Osmel Briscoe MD LAB BLOOD ORDERABLES Final R esult Performing Organization Address [facility] Co de Phone Number [facility] [address] [place] [address] * Vitamin D 25 hydroxy (BH L YH) (12/25/2015 10:09 AM EDT) Vit D, 25-Hydroxy 43 20 - 50 ng/mL [facility] Comment: A serum 25(OH) vitamin [...] ORDERABLES Final R esult Performing Organization Address City/[facility]/ZIP Co de Phone Number [facility] [address] [place] [address] * TSH (BH L YH) (12/25/2015 10:09 AM EDT) TSH cancelled 0.3 - 4.2 uU/mL [facility] TSH 1.62 0.3 - 4.2 uU/mL [facility] Comment:This test is a third generation TSH assay. Blood specimen (specimen) 12/25/2015 10:09 AM EDT Osmel Briscoe MD LAB BLOOD ORDERABLES Final R esult Performing Organization Address [facility] Co de Phone Number [facility] [address] [place] [address] * (ABNORMAL) CBC and differential (12/25/2015 10:09 AM EDT) [facility] CBC with Differential See Below [facility] WBC 9.9 4.0 - 10.0 x 1000/uL [facility] RBC 4.0 3.8 - 5.2 M/uL [facility] Hemoglobin 13.4 12.0 - 16.0 g/dL [facility] Hematocrit 41.0 37.0 - 47.0 % [facility] MCV 101(H) 78 - 94 fL [facility] MCH 33.2(H) 27.0 - 33.0 pg [facility] MCHC 32.8(L) 33.0 - 37.0 g/dL [facility] RDW 12.5 10.8 - 14.5 % [facility] Platelets 265 150 - 350 x 1000/uL [facility] MPV 7.2 6.0 - 10.0 fL [facility] Neutrophils 82(H) 38 - 71 % [facility] Lymphocytes 7(L) 14 - 46 % [facility] Monocytes 10 2 - 15 % [facility] Eosinophils 1 0 - 5 % [facility] Basophils 0 0 - 2 % [facility] ANC (Abs Neutrophil Count) 8.1 1.0 - 9.0 x 1000/uL [facility] Absolute Lymphocyte Count 0.7 0.6 - 4.6 x 1000/uL [facility] Blood specimen (specimen) ARM NEC / Unknown 12/25/2015 10:09 AM EDT us Osmel Briscoe MD LAB BLOOD ORDERABLES Final R esult [facility] [address] [place] [address] documented in this encounter Visit Diagnoses Diagnosis [...] documented as of this encounter Care Teams Gravel Wheeler Relationship Specialty Start Date End Date Caitlyn Bowie MD [facility]0 [facility] 1 [place] [address] PCP - General Internal Medicine 05/06/21 Henry Kelly MD Pulmonary Department 175 [facility], [address] [place] [address] Physician Pulmonary Disease 09/06/17 06/22/20 documented as of this encounter
--- OUTSIDE RECORDS SUMMARY | 2025-04-22 21:19 | XMS_ITS | Encounter Summary ---
Author Organization [facility] Address [address] [place] [address] Care Team Providers Care Windows Consultant Name Role Phone Pcp, No Primary Care Provider Brennan Mario MD Primary Care Provider [phone] Caitlyn Bowie MD Primary Care Provider +1- [phone] Encounter Details Date Type Department Care Team (Late st Contact Info) Description 01/04/[address] [facility] Neurology Ophthalmology [address] [address] Yary Whitten DO [address] [place] [address] Social History Tobacco Use Types Packs/Day [...] filedocumented in this encounter Care Teams Windows Consultant Relationship Specialty Start Date End Date Pcp, No PCP - General General Medicine 10/04/21 07/18/22 Brennan Burnett MD [address] [place] [address] PCP - General 07/19/22 03/19/23 Caitlyn Bowie MD [address] [place] [address] PCP - General Internal Medicine 03/20/23 documented as of this encounter
--- OUTSIDE RECORDS SUMMARY | 2025-04-22 21:19 | XMS_ITS | Encounter Summary ---
Author Organization [facility] and [facility] Address [address] [place] [address] Care Team Providers Care Chucking Machine Operator Name Role Phone Caitlyn Bowie MD Primary Care Provider +1- [phone] Encounter Details Date Type Department Care Team (Late st Contact Info) Description 08/28/2015 Scanned Document [facility] Health Information Management [address] [place] [address] External, Provider Social History Tobacco Use Types [...] [facility] [address] [facility] [address] [place], [place] [phone] Ronald Mills MD 240 [facility] A1 [place] [address] documented as of this encounter Visit Diagnoses Not on filedocumented in this encounter Additional Health Concerns Infection Onset Date Last Indicated Resolved Time COVID-19 03/05/2022 03/05/2022 03/15/2022 7:18 PM EDT documented as of this encounter Care Teams Chucking Machine Operator Relationship Specialty Start Date End Date Caitlyn Bowie MD 3400 [facility] 1 [place] [address] PCP - General Internal Medicine 05/06/21 Henry Kelly MD Pulmonary Department 175 [facility], [address] [place] [address] Physician Pulmonary Disease 09/06/17 06/22/20 documented as of this encounter
--- OUTSIDE RECORDS SUMMARY | 2025-04-22 21:19 | XMS_ITS | Encounter Summary ---
Author Organization [facility] and [facility] Address [address] [place] [address] Care Team Providers Care Paradichlorobenzene Machine Operator Name Role Phone Caitlyn Bowie MD Primary Care Provider +1- [phone] Encounter Details Date Type Department Care Team (Late st Contact Info) Description 02/21/[address] [facility] Health Information Management [address] [place] [address] External, Provider Social History Tobacco Use Types [...] [facility] 240 [facility] Building [address] [place], [place] [phone] Ronald Mills MD 240 [facility] Max [address] [place] [address] documented as of this encounter [...] documented as of this encounter Care Teams Paradichlorobenzene Machine Operator Relationship Specialty Start Date End Date Caitlyn Bowie MD 3400 [facility] Max 1 [place] [address] PCP - General Internal Medicine 05/06/21 Henry Kelly MD Pulmonary Department 175 [facility], [address] [place] [address] Physician Pulmonary Disease 09/06/17 06/22/20 documented as of this encounter
--- OUTSIDE RECORDS SUMMARY | 2025-04-22 21:19 | XMS_ITS | Encounter Summary ---
Author Organization [facility] and [facility] Address [address] [place] [address] Care Team Providers Care Community Arts Centre Manager Name Role Phone Caitlyn Bowie MD Primary Care Provider +1- [phone] Encounter Details Date Type Department Care Team (Late st Contact Info) Description 08/21/2017 Scanned Document [facility] Health Information Management [address] [place] [address] External, Provider Social History Tobacco Use Types [...] [facility] 240 [facility] Building [address] [place], [place] [phone] Ronald Mills MD [address] [place] [address] [address] [place] [address] documented as of this encounter [...] of this encounter Care Teams Community Arts Centre Manager Relationship Specialty Start Date End Date Caitlyn Bowie MD 3400 [facility] 1 [place] [address] PCP - General Internal Medicine 05/06/21 Henry Kelly MD Pulmonary Department 175 [facility], [address] [place] [address] Physician Pulmonary Disease 09/06/17 06/22/20 documented as of this encounter
--- OUTSIDE RECORDS SUMMARY | 2025-04-22 21:19 | XMS_ITS | Encounter Summary ---
Author Organization [facility] Address [address] [place] [address] Care Team Providers Care Interior Surface Insulation Worker Name Role Phone Caitlyn Bowie MD Primary Care Provider +1- [phone] Encounter Details Date Type Department Care Team (Late st Contact Info) Description 12/03/2015 Scanned Document [facility] Health Information Management [address] [place] [address] External, Provider Social History Tobacco Use Types [...] [facility] Building [address] [place], [place] [id number] Ronald Mills MD 240 [facility] Max [address] [place] [address] documented as of this encounter Procedures Procedure Name Priority Date/Time Associated Diagnosis Comments LAB SCAN Routine 12/03/2015 documented in this encounter Results * Lab Scan (12/03/2015) Blood specimen (specimen) us Provider External LAB BLOOD ORDERABLES Edited Re sult - Final [facility] documented in this encounter Visit Diagnoses Not on filedocumented in this encounter Additional Health Concerns Infection Onset Date Last Indicated Resolved Time COVID-19 03/05/2022 03/05/2022 03/15/2022 7:18 PM EDT documented as of this encounter Care Teams Interior Surface Insulation Worker Relationship Specialty Start Date End Date Caitlyn Bowie MD 3400 [facility] 1 [place] [address] PCP - General Internal Medicine 05/06/21 Henry Kelly MD Pulmonary Department 175 [facility], [address] [place] [address] Physician Pulmonary Disease 09/06/17 06/22/20 documented as of this encounter
--- OUTSIDE RECORDS SUMMARY | 2025-04-22 21:19 | XMS_ITS | Encounter Summary ---
Author Organization [facility] and [facility] Address [address] [place] [address] Care Team Providers Care Revenue Settlements Administrator Name Role Phone Caitlyn Bowie MD Primary Care Provider +1- [phone] Encounter Details Date Type Department Care Team (Late st Contact Info) Description 12/29/2021 Telephone [facility] at [address] - [address] [address] Ronald Mills MD [address] [place] [address] Social History Tobacco Use Types Packs/Day [...] not sure where the blood's coming from. [phone] documented in this encounter Plan of Treatment Upcoming Encounters Date Type Department Care Team (Late st Contact Info) Description 04/25/2025 4:00 PM EDT Telemedicine [facility] 240 [facility] [address] [place] [address] Ronald Mills MD 240 [facility] A1 [place] [address] documented as of this encounter Visit Diagnoses Not on filedocumented in this encounter Additional Health Concerns Infection Onset Date Last Indicated Resolved Time COVID-19 03/05/2022 03/05/2022 03/15/2022 7:18 PM EDT Assessment Noted Time PHQ-9 Depression Total Score: 2 11/07/19 19 2:06 PM EDT documented as of this encounter Care Teams Revenue Settlements Administrator Relationship Specialty Start Date End Date Caitlyn Bowie MD [address] [address] PCP - General Internal Medicine 05/06/21 documented as of this encounter
--- OUTSIDE RECORDS SUMMARY | 2025-04-22 21:19 | XMS_ITS | Encounter Summary ---
Author Organization [facility] and [facility] Address [address] [place] [address] Care Team Providers Care Inspector Subassembly Name Role Phone Caitlyn Bowie MD Primary Care Provider +1- [phone] Encounter Details Date Type Department Care Team (Late st Contact Info) Description 09/09/2015 Scanned Document [facility] Health Information Management [address] [place] [address] External, Provider Social History Tobacco Use Types [...] at [facility] 240 [facility] Building [address] [place], [place] [phone] Ronald Mills MD 240 [facility] Max [address] [place] [address] documented as of this encounter Procedures Procedure Name Priority Date/Time Associated Diagnosis Comments LAB SCAN Routine 09/09/2015 documented in this encounter Results * Lab Scan (09/09/2015) Blood specimen (specimen) us Provider External LAB BLOOD ORDERABLES Final Res ult [facility] documented in this encounter Visit Diagnoses Not on filedocumented in this encounter Additional Health Concerns Infection Onset Date Last Indicated Resolved Time COVID-19 03/05/2022 03/05/2022 03/15/2022 7:18 PM EDT documented as of this encounter Care Teams Inspector Subassembly Relationship Specialty Start Date End Date Caitlyn Bowie MD 3400 [facility] 1 [place] [address] PCP - General Internal Medicine 05/06/21 Henry Kelly MD Pulmonary Department 175 [facility], [address] [place] [address] Physician Pulmonary Disease 09/06/17 06/22/20 documented as of this encounter
--- OUTSIDE RECORDS SUMMARY | 2025-04-22 21:19 | XMS_ITS | Encounter Summary ---
Author Organization [facility] and [facility] Address [address] [place] [address] Care Team Providers Care Fiberglass Bonding Machine Tender Name Role Phone Caitlyn Bowie MD Primary Care Provider +1- [phone] Encounter Details Date Type Department Care Team (Late st Contact Info) Description 12/31/2015 Scanned Document Electrophysiology & Cardiac Arrhythmia Program [address] [place] [address] External, Provider Social History Tobacco Use Types [...] [facility] [address] [facility] [address] [place], [place] [phone] Ronald Mills MD [address] [place] [address] [address] [place] [address] documented as of this encounter Procedures Procedure Name Priority Date/Time Associated Diagnosis Comments LAB SCAN Routine 12/31/2015 documented in this encounter Results * Lab Scan (12/31/2015) Blood specimen (specimen) us Provider External LAB BLOOD ORDERABLES Final Res ult Performing Organization Address City/State/[facility] Co de Phone Number [facility] documented in this encounter Visit Diagnoses Not on filedocumented in this encounter Additional Health Concerns Infection Onset Date Last Indicated Resolved Time COVID-19 03/05/2022 03/05/2022 03/15/2022 7:18 PM EDT documented as of this encounter Care Teams Fiberglass Bonding Machine Tender Relationship Specialty Start Date End Date Caitlyn Bowie MD [address] [facility] 1 [place] [address] PCP - General Internal Medicine 05/06/21 Henry Kelly MD Pulmonary Department 175 [facility], [address] [place] [address] Physician Pulmonary Disease 09/06/17 06/22/20 documented as of this encounter
--- OUTSIDE RECORDS SUMMARY | 2025-04-22 21:19 | XMS_ITS | Encounter Summary ---
Author Organization [facility] and [facility] Address [address] [place] [address] Care Team Providers Care Power And Recovery Supervisor Name Role Phone Caitlyn Bowie MD Primary Care Provider +1- [phone] Encounter Details Date Type Department Care Team (Late st Contact Info) Description 12/04/2018 Scanned Document [facility] Health Information Management [address] [place] [address] External, Provider Social History Tobacco Use Types [...] [facility] at [facility] [address] [facility] Building [address] [place], [place] [phone] Ronald Mills MD [address] [place] [address] [address]1 [place] [address] documented as of this encounter Visit Diagnoses Not on filedocumented in this encounter Additional Health Concerns Infection Onset Date Last Indicated Resolved Time COVID-19 03/05/2022 03/05/2022 03/15/2022 7:18 PM EDT Assessment Noted Time PHQ-9 Depression Total Score: 2 11/07/19 19 2:06 PM EDT documented as of this encounter Care Teams Power And Recovery Supervisor Relationship Specialty Start Date End Date Caitlyn Bowie MD [address] [facility] Max 1 [place] [address] PCP - General Internal Medicine 05/06/21 Henry Kelly MD Pulmonary Department 175 [facility], [address] [place] [address] Physician Pulmonary Disease 09/06/17 06/22/20 documented as of this encounter
--- OUTSIDE RECORDS SUMMARY | 2025-04-22 21:19 | XMS_ITS | Encounter Summary ---
Author Organization [facility] and [facility] Address [address] [place] [address] Care Team Providers Care Certified Adapted Physical Educator Name Role Phone Caitlyn Bowie MD Primary Care Provider +1- [phone] Encounter Details Date Type Department Care Team (Late st Contact Info) Description 04/13/2021 Scanned Document INTERFACE DEFAULT [address] [place] [address] System, Provider Not In Social History Tobacco [...] [facility] 240 [facility] [address] [place], [place] [address] Ronald Mills MD [address] [place] [address] [address] [place] [address] documented as of this [...] as of this encounter Care Teams Certified Adapted Physical Educator Relationship Specialty Start Date End Date Caitlyn Bowie MD [address] [address] PCP - General Internal Medicine 05/06/21 documented as of this encounter
--- OUTSIDE RECORDS SUMMARY | 2025-04-22 21:19 | XMS_ITS | Encounter Summary ---
Author Organization [facility] and [facility] Address [address] [place] [address] Care Team Providers Care Rippler Name Role Phone Caitlyn Bowie MD Primary Care Provider +1- [phone] Encounter Details Date Type Department Care Team (Late st Contact Info) Description 04/22/2022 Scanned Document INTERFACE DEFAULT [address] [place] [address] System, Provider Not In Social History Tobacco [...] [facility] 240 [facility] Building [address] [place], [place] [phone] Ronald Mills MD [address] [place] [address] [address] [place] [address] documented as of this encounter [...] documented as of this encounter Care Teams Rippler Relationship Specialty Start Date End Date Caitlyn Bowie MD [address] [address] PCP - General Internal Medicine 05/06/21 documented as of this encounter
--- OUTSIDE RECORDS SUMMARY | 2025-04-22 21:19 | XMS_ITS | Encounter Summary ---
Author Organization [facility] and [facility] Address [address] [place] [address] Care Team Providers Care Is Analyst Name Role Phone Caitlyn Bowie MD Primary Care Provider +1- [phone] Encounter Details Date Type Department Care Team (Late st Contact Info) Description 04/22/2021 Scanned Document INTERFACE DEFAULT [address] [place] [address] System, Provider Not In Social History [...] [facility] at [facility] 240 [facility] Building [address] [place], [place] [phone] Ronald Mills MD [address] [place] [address] [address] [place] [address] documented as of this encounter [...] as of this encounter Care Teams Is Analyst Relationship Specialty Start Date End Date Caitlyn Bowie MD [facility] [address] [address] PCP - General Internal Medicine 05/06/21 documented as of this encounter
--- OUTSIDE RECORDS SUMMARY | 2025-04-22 21:19 | XMS_ITS | Encounter Summary ---
Author Organization [facility] and [facility] Address [address] [place] [address] Care Team Providers Care Rn Integrated Name Role Phone Caitlyn Bowie MD Primary Care Provider +1- [phone] Encounter Details Date Type Department Care Team (Late st Contact Info) Description 03/01/2017 Scanned Document Onco-Oncology Program at [address] [place] [address] Norma Renee MD [address] [place] [address] 2 [place] [phone] Social History Tobacco Use Types Packs/Day Years [...] PM EDT Telemedicine Cancer Center at [address] [place] [address] Ronald Mills MD [address] [facility] A1 [place] [address] documented as of this encounter Visit Diagnoses Not on filedocumented in this encounter Additional Health Concerns Infection Onset Date Last Indicated Resolved Time COVID-19 03/05/2022 03/05/2022 03/15/2022 7:18 PM EDT documented as of this encounter Care Teams Rn Integrated Relationship Specialty Start Date End Date Caitlyn Bowie MD 3400 [facility] Max 1 [place] [address] PCP - General Internal Medicine 05/06/21 Henry Kelly MD Pulmonary Department 175 [facility], [address] [place] [address] Physician Pulmonary Disease 09/06/17 06/22/20 documented as of this encounter
--- OUTSIDE RECORDS SUMMARY | 2025-04-22 21:19 | XMS_ITS | Encounter Summary ---
Author Organization [facility] and [facility] Address [address] [place] [address] Care Team Providers Care Enamel Finisher Name Role Phone Caitlyn Bowie MD Primary Care Provider +1- [phone] Encounter Details Date Type Department Care Team (Late st Contact Info) Description 04/12/2022 Scanned Document INTERFACE DEFAULT [address] [place] [address] System, Provider Not In Social History Tobacco [...] [facility] [address] [facility] Building [address] [place] [address] Ronald Mills MD [address] [place] [address] [address] [place] [address] documented as of this encounter [...] as of this encounter Care Teams Enamel Finisher Relationship Specialty Start Date End Date Caitlyn Bowie MD [address] [address] PCP - General Internal Medicine 05/06/21 documented as of this encounter
--- OUTSIDE RECORDS SUMMARY | 2025-04-22 21:19 | XMS_ITS | Clinical Summary ---
Author Organization [address] Address 20 [place] [address] Phone Care Team Providers Care Gastroenterology Manager Name Role Phone Caitlyn Bowie MD Primary Care Provider +1- [phone] Allergies Active Allergy Reactions Criticality Noted Date [...] to tobacco smoke by family members ramos indoors Bronchiectasis COPD (chronic obstructive pulmonary disease) Mildly restrictive lung disease Resolved Problems Problem Noted Date Diagnosed Date Resolved Date KANDY (obstructive sleep apnea) 11/21/2016 01/22/2018 Carotid stenosis, asymptomatic, right 09/18/2015 06/10/2016 Encounters Date Type Department Care Team Description 04/18/2025 Telephone Hematology Program at [address] [place] [address] Ronald Mills MD 04/11/2025 Documentation Cancer Center at [address] [place] [address] Taya Nuno RN 04/11/2025 Orders Only Cancer Center at [address] [place] [address] Ronald Mills MD VTE (venous thromboembolism) (Primary Dx); Elevated homocysteine; Antiphospholipid antibody syndrome (HC Code); Feeding difficulties, unspecified 04/05/2025 Telephone CHIEF MEDICAL TECHNOLOGIST [facility] [address] [place] [address] Mary Pan MD Advice Only 01/20/2025 Telephone Hematology Program at [address] [place] [address] Ronald Mills MD Triage from Last 3 [...] [address] [facility] [address] [place], [place] [address] Ronald Mills MD [address] [place] [address] [address] [place] [address] Health Maintenance Due Date Last Done [...] - 144 mmol/L 04/05/2022 1:43 PM EDT [facility] DEPARTMENT OF LABORATORY MEDICINE [facility] Potassium 4.7 3.3 - 5.3 mmol/L 04/05/2022 1:43 PM EDT [facility] DEPARTMENT [facility] LAB[facility]ORY MEDIC[facility] Chloride 100 98 - 107 mmol/L 04/05/2022 1:43 PM EDT [facility] DEPARTMENT [facility] LAB[facility]ATORY MEDIC[facility] CO2 30 20 - 30 mmol/L 04/05/2022 1:43 PM EDT [facility] DEPARTMENT OF LABORATORY MEDICINE [facility] Anion Gap 8 7 - 17 04/05/2022 1:43 PM EDT [facility] DEPARTMENT OF LABORATORY MEDICINE [facility] Glucose 115(H) 70 - 100 mg/dL 04/05/2022 1:43 PM EDT [facility] DEPARTMENT OF LABORATORY MEDICINE [facility] BUN 16 8 - 23 mg/dL 04/05[facility]22 [facility] Creatinine 0.89 0.40 - 1.30 mg/dL 04/05/2022 1:43 PM EDT [facility] DEPARTMENT OF LABORATORY MEDICINE [facility] Calcium 10.5(H) 8.8 - 10.2 mg/dL 04/05/2022 1:43 PM EDT [facility] DEPARTMENT OF LABORATORY MEDICINE [facility] BUN/Creatinine Ratio 18.0 8.0 - 23.0 03/11 1[facility] Total Protein 7.0 6.6 - 8.7 g/dL 04/05/2022 1:43 PM EDT [facility] DEPARTMENT OF LABORATORY MEDICINE [facility] Albumin 4.2 3.6 - 4.9 g/dL 04/05/2022 1:43 PM EDT [facility] DEPARTMENT OF LAB[facility]ATORY MEDIC[facility] Total Bilirubin 0.6 <=1.2 mg/dL 04/05/2022 1:43 PM EDT [facility] DEPARTMENT OF LABORATORY MEDICINE [facility] Alkaline Phosphatase 58 9 - 122 U/L 04/05/2022 1:43 PM EDT [facility] DEPARTMENT OF LABORATORY MEDICINE [facility] Alanine Aminotransferase (ALT) 19 10 - 35 U/L 04/05/2022 1:43 PM EDT [facility] Comment:Calcium dobesilate c an cause artificially low ALT results at therapeutic concentrations Aspartate Aminotransferase (AST) 26 10 - 35 U/L 04/05/2022 1:43 PM EDT [facility] DEPARTMENT LABORATORY [facility] Globulin 2.8 2.3 - 3.5 g/dL 04/05/2022 1:43 PM EDT [facility] A/G Ratio 1.5 1.0 - 2.2 04/05/2022 1:43 PM EDT [facility] AST/ALT Ratio 1.4 See Comment 04/05/2022 1:43 PM EDT [facility] Comment: Adult with mild elevations of transaminases (< 5 times upper limit of normal): AST/ALT > 2 suggests alcoholic liver injury AST/ALT < 1 suggests non-alcoholic fatty liver disease (NAFLD) [place] (healthy): AST/ALT can be > 3 on day 0 AST/ALT < 2 by day 5 The thresholds provided focus on the most common etiologies of elevated serum transaminase levels and the associated alteration of AST:ALT ratios; they are not intended to exclude other feasible and clinically appropriate possibilities eGFR (Creatinine) >60 >=60 mL/min/1.7 3m2 04/05/2022 1:43 PM EDT [facility] Comment:Estimated glomerular filtration rate (eGFR) [...] MD LAB BLOOD ORDERABLES Final Resul t [facility] DEPARTMENT OF LABORATORY MEDICINE [facility] [address] [phone] * Bone Density Result Scan (05/10/2017) us Historical Provider IMG SCAN REPORTS Final Resul t * (ABNORMAL) Lipid panel (03/18/2016 2:55 PM EDT) Cholesterol 229(H) 115 - 199 mg/dL 03/18/2016 8:11 PM EDT [facility] HDL 83 >=40 mg/dL 03/18/2016 8:11 PM EDT [facility] Triglycerides 71 30 - 150 mg/dL 03/18/2016 8:11 PM EDT [facility] Chol/HDL Ratio 2.8 <=5 03/18/2016 8:11 PM EDT [facility] Comment:Cholesterol/HDL rati o cannot be calculated. LDL Calculated 132 See Comment mg/dL 03/18/2016 8:11 PM EDT [facility] Comment: <100: Optimal 100-129: Near optimal/above optimal 130-159: Borderline high risk 160-189: High risk >=190: Very high risk Blood specimen (specimen) Venipuncture / Unknown 03/18/2016 2:55 PM EDT 03/18/2016 3:17 PM EDT Narrative [facility] - 03/18/2016 8:11 PM EDT $18.27 us Sangeeta Garces MD LAB BLOOD ORDERABLES Fin al Result [facility] [address] [place], [place] [address] [phone] * MAMMOGRAPHY REPORT (04/25/2013 6:47 AM EDT) 04/25/2013 6:47 AM EDT us Provider Not In System IMG SCAN REPORTS Final Re sult from Last 3 Months or Most Recently Relevant to Health Maintenance Insurance MEDICARE [facility] MEDICARE [facility] MEDICARE [facility] MEDICARE MEDICARE [place] Advance Directives * Full ACLS (Latest Code Status on File) Date Activated Date Inactivated Comments 12/15/2018 7:13 PM 12/16/2018 6:09 PM * Full Interventions Date Activated Date Inactivated Comments 03/18/2016 6:34 PM 03/19/2016 6:40 PM Care Teams Gastroenterology Manager Relationship Specialty Start Date End Date Caitlyn Bowie MD [address] [address] PCP - General Internal Medicine 05/06/21
--- OUTSIDE RECORDS SUMMARY | 2025-04-22 21:19 | XMS_ITS | Encounter Summary ---
Author Organization [facility] and [facility] Address [address] [place] [address] Care Team Providers Care Stem Teacher Name Role Phone Caitlyn Bowie MD Primary Care Provider +1- [phone] Encounter Details Date Type Department Care Team (Late st Contact Info) Description 04/19/2022 Scanned Document INTERFACE DEFAULT [address] [place] [address] System, Provider Not In Social History Tobacco [...] [facility] [address] [facility] Building [address] [place], [place] [phone] Ronald Mills MD [address] [place] [address] [address] [place] [address] documented as of this encounter [...] as of this encounter Care Teams Stem Teacher Relationship Specialty Start Date End Date Caitlyn Bowie MD [address] [address] PCP - General Internal Medicine 05/06/21 documented as of this encounter
--- OUTSIDE RECORDS SUMMARY | 2025-04-22 21:19 | XMS_ITS | Encounter Summary ---
Author Organization [facility] Address [address] [place] [address] Care Team Providers Care Gaming Floor Supervisor Name Role Phone Caitlyn Bowie MD Primary Care Provider +1- [phone] Encounter Details Date Type Department Care Team (Late st Contact Info) Description 04/11/2019 Scanned Document [facility] Health Information Management [address] [place] [address] External, Provider Social History Tobacco Use Types [...] [facility] Building [address] [place] [address] Ronald Mills MD [address] [place] [address] [address] [place] [address] documented as of this encounter [...] as of this encounter Care Teams Gaming Floor Supervisor Relationship Specialty Start Date End Date Caitlyn Bowie MD 34[address] [facility] 1 [place] [address] PCP - General Internal Medicine 05/06/21 Henry Kelly MD Pulmonary Department 175 [facility], [address] [place] [address] Physician Pulmonary Disease 09/06/17 06/22/20 documented as of this encounter
--- OUTSIDE RECORDS SUMMARY | 2025-04-22 21:19 | XMS_ITS | Encounter Summary ---
Author Organization [facility] and [facility] Address [address] [place] [address] Care Team Providers Care Human Service Technician Name Role Phone Caitlyn Bowie MD Primary Care Provider +1- [phone] Encounter Details Date Type Department Care Team (Late st Contact Info) Description 04/25/2022 Scanned Document INTERFACE DEFAULT [address] [place] [address] System, Provider Not In Social History Tobacco [...] [facility] [address] [facility] Building [address] [place] [address] Ronald Mills MD [address] [place] [address] [address] [place] [address] documented as of this encounter Visit Diagnoses Not on filedocumented in this encounter Additional Health Concerns Assessment Noted Time PHQ-9 Depression Total Score: 2 11/07/19 19 2:06 PM EDT documented as of this encounter Care Teams Human Service Technician Relationship Specialty Start Date End Date Caitlyn Bowie MD [address] [address] PCP - General Internal Medicine 05/06/21 documented as of this encounter
--- OUTSIDE RECORDS SUMMARY | 2025-04-22 21:19 | XMS_ITS | Encounter Summary ---
Author Organization [facility] Address [address] [place] [address] Care Team Providers Care Insurance Sales Producer Name Role Phone Caitlyn Bowie MD Primary Care Provider +1- [phone] Encounter Details Date Type Department Care Team (Late st Contact Info) Description 03/20/2023 Scanned Document [facility] [address] [place] [address] Caitlyn Bowie MD [address] [place] [address] Social History Tobacco Use Types Packs/Day Years [...] in this encounter Care Teams Insurance Sales Producer Relationship Specialty Start Date End Date Caitlyn Bowie MD [address] [place] [address] PCP - General Internal Medicine 03/20/23 documented as of this encounter
--- OUTSIDE RECORDS SUMMARY | 2025-04-22 21:19 | XMS_ITS | Encounter Summary ---
Author Organization [facility] and [facility] Address [address] [place] [address] Care Team Providers Care Warehouse Order Filler Name Role Phone Caitlyn Bowie MD Primary Care Provider +1- [phone] Encounter Details Date Type Department Care Team (Late st Contact Info) Description 05/02/2022 Scanned Document INTERFACE DEFAULT [address] [place] [address] System, Provider Not In Social History Tobacco [...] at [facility] [address] [facility] Building [address] [place] [address] Ronald Mills MD [address] [place] [address] [address] [place] [address] documented as of this encounter [...] as of this encounter Care Teams Warehouse Order Filler Relationship Specialty Start Date End Date Caitlyn Bowie MD [address] [address] PCP - General Internal Medicine 05/06/21 documented as of this encounter
--- OUTSIDE RECORDS SUMMARY | 2025-04-22 21:19 | XMS_ITS | Clinical Summary ---
Author Organization 175 [facility] Address [address] [place] [address] Phone Care Team Providers Care [employer] Name Role Phone Caitlyn Bowie MD Primary Care Provider [phone] Allergies Active Allergy Reactions Criticality Noted Date [...] total) by mouth every other day. Active magnesium oxide (MAG-OX) 400 mg magnesium tablet Take 1 tablet (400 mg total) by mouth 1 (one) time each day. 30 tablet 2 5 Active riboflavin (VITAMIN B2) 400 mg tablet Take 1 tablet (400 mg total) by mouth 1 (one) time each day. 30 tablet 5 04/19/20 25 Active Problems Problem Noted Date Diagnosed [...] 20 mg as needed by her previous welfare project manager which she has taken sporadically. I have asked her to take this daily to see if this improves her symptoms and she has a follow-up appointment with Dr. Shah on September 16 which she will keep. We also had a long conversation regarding the fact that she is seeing 3 different welfare project manager for the same problems. We informed [...] continues to see Dr. Avalos or her welfare project manager at [facility]. She [...] antibody syndrome (CMS/HCC V24) 12/24/2018 Adrenal insufficiency ([facility] V24) 08/23/2018 Allergic rhinitis 08/23/2018 Hyperparathyroidism ([facility] V24) 08/23/2018 MRSA infection 08/23/2018 Overview (05/16/2024): 06/2009, s/p thoracotomy infection Osteoarthritis 08/23/2018 Radiation-induced pulmonary fibrosis ([facility] V2 4) 11/13/2017 Bronchiectasis ([facility] V24, [facility] V28) 2017 Leg edema 08/08/2017 Restrictive lung disease 08/08/2017 Chronic obstructive pulmonar y disease ([facility] V24, [facility] V28) 04/13/2017 Fibromyalgia 04/13/2017 Congestive heart failure ([facility] V24, [facility] V 28) 04/04/2017 Heterozygous factor V Leiden mutation ([facility] V 24) 04/04/2017 Obstructive sleep apnea syndrome 04/04/2017 Overview (05/16/2024): CPAP Pleural effusion 04/04/2017 Pulmonary hypertension ([facility] V24, [facility] V28 ) 04/04/2017 Multiple pulmonary nodules 03/17/2017 [...] Encounters Date Type Department Care Team Description 04/14/2025 10:00 AM EDT Evaluation [address] [phone] Bruno Moreno, PT Gait abnormality (Primary Dx); Cerebral lesion 04/14/2025 Plan of Care Documentation [facility] 175 [facility] [address] [place] [phone] 04/11/2025 Telephone Gastroenterology - [address] [place] [phone] Tim Gomes MD 03/20/2025 11:40 AM EDT Office Visit [facility] 175 [facility] [address] [place] [phone] Ayanna aJffe MD Optic neuritis (Primary Dx); White matter lesion of central nervous system; Blurry vision 02/24/2025 Telephone Gastroenterology - 299 [facility] 299 [facility] [address] [place] [phone] Tim Gomes MD 02/23/2025 11:40 AM EDT - 02/23/2025 4:[address] [facility] Emergency [address] [place] [phone] Celia Snider DO Diverticulitis (Primary Dx) Discharge Disposition: Home or Self Care 02/21/2025 4:30 PM EDT Office Visit [address] [phone] Shirley Chaidez PA Optic neuritis (Primary Dx) from Last 3 Months Immunizations Immunization Administration [...] PROCEDURE: HISTORICAL TONSILLECTOMY OTHER SURGICAL HISTORY PROCEDURE: CA RMVL LUNG XCP TOT PNEUMONECTOMY SLEEVE LOBECTOMY; [...] pathology report UPPER GASTROINTESTINAL ENDOSCOPY 05/03/2015 PROCEDURE: CA UPPER GI ENDOSCOPY PERFORMED MITRAL CLIP PROCEDURE Medical History Medical History Date Comments Akathisia 04/15/2013 DX:Akathisia Anxiety 12/07/2016 DX:Anxiety Bronchiectasis (CMS/HCC V24, CMS/HCC V28) 08/08/2017 DX:Bronchiectasis (HCC) Cataract 08/26/2014 DX:Cataract Chronic obstructive pulmonar y disease (CMS/HCC V24, [facility] V28) 04/13/2017 DX:Chronic obstructive pulm onary disease [...] dori pect Heterozygous factor V Leiden mutation ([facility] V24) 04/04/2017 DX:Heterozygous factor V Lei den [...] syndrome 02/18/2013 DX:Postc oncussion syndrome Pulmonary hypertension ([facility] V24, [facility] V28) 04/04/2017 DX:Pulmonary hypertension (H CC) Restrictive lung disease 08/08/2017 DX:Rest rictive lung disease 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 DX:Zinc deficien cy Obstructive sleep apnea syndrome 04/04/2017 DX:Obstructive sleep apnea syndrome; COMMENT: CPAP Radiation-induced pulmonary fibrosis ([facility] V24) 11/13/2017 DX:Radiation-induced pulmona ry fibrosis (HCC) Adrenal insufficiency ([facility] V24) 08/23/2018 DX:Adrenal insufficiency (HCC) Hyperparathyroidism ([facility] V24) 08/23/2018 DX:Hyperparathyroidism (HCC) Osteoporosis 11/17/2016 DX:Osteoporosis [...] Mx LLL resection, Chemo, RT, Cisplatin, Vinorelbine [phone] Antiphospholipid antibody sy ndrome ([facility] V24) 12/24/2018 DX:Antiphospholipid antibody syndrome (HCC) 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 Hyperparathyroidism ([facility] V24) DX:Hyperparathyroidism (HCC) Adrenal insufficiency ([facility] V[facility]) DX:Adrenal insufficiency (HCC) Family History Medical [...] Care Team (Late st Contact Info) Description 05/12/2025 1:45 PM EST Treatment [address] [phone] Gene Marshall PTA 05/14/2025 9:45 AM EST Treatment [facility] [address] [phone] Bruno Moreno, PT [address] [place] [address] 05/19/2025 10:30 AM EST Treatment [address] [phone] Bruno Moreno, PT [address] [place] [address] 05/21/2025 10:15 AM EST Treatment [address] [phone] Gene Marshall, DOLL MAKER 05/26/2025 10:30 AM EST Treatment [address] [phone] Bruno Moreno, PT [address] [place] [address] 05/28/2025 1:30 PM EST Treatment [address] [phone] Gene Marshall, DOLL MAKER 05/29/2025 3:00 PM EST Office Visit [address] [phone] Ayanna Jaffe MD 175 [place] [address] 06/02/2025 10:30 AM EST Treatment [address] [phone] Bruno Moreno, PT [address] [place] [address] 06/04/2025 10:15 AM EST Treatment [address] [phone] Bruno Moreno, PT [address] [place] [address] Health Maintenance Due Date Last Done Comments [...] Type Associated Problems Recent Progress Patient-Stated? Author feel better. Improve balance General Yes Bruno Moreno, PT PT STG x 8 visis from eval on 04/14/2025 General No Bruno Moreno, PT Note: [x] = goal MET [] = goal NOT MET [] Pt will be able to perform full bridge to allow improved bed mobility [] Pt will be able to perform 5 sit to stand reps in 30 sec [] Pt will improve hip IR to >4-/5 [] Pt will improve hip abd strength to 3+/5 R and 4/5 L PT LTG 16 visits from [facility] on 04/14/2025 General Bruno Kaur, PT Note: [x] = goal MET [] = goal NOT MET [] Pt will be able to negotiate one flight of stair reciprocally [] Pt will be able to perform car transfers without UE support [] Pt will improve LOZOYA balance score to 52/26 Procedures Procedure Name Priority Date/Time Associated Diagnosis [...] central nervous system Blurry vision NEUROMYELITIS OPTICA, [id number] Routine 03/20/2025 12:31 PM EDT Optic neuritis [...] reflex to titer (03/20/2025 12:31 PM EDT) MOG Antibody, Cell-based IFA Negative Negative 03/25/2025 1:05 AM EDT [facility] Blood Venous blood specimen / Unknown Venipuncture / Unknown 03/20/2025 12:31 PM EDT 03/20/2025 12:31 PM EDT Narrative [facility] - 03/25/2025 1:05 AM EDT Test(s) [id number] Antibody, Cell-based IFA was developed and its performance characteristics determined by [facility]. It has not been cleared or approved by the Food and Drug Administration. Performed at: [address] [id number] [place]: Melissa Wetzel MD, Phone: [phone] Ayanna Jaffe MD LAB BLOOD ORDERABLES Fin al Result Performing Organization Address [facility] de Phone Number [facility] * Neuromyelitis optica, [id number] (03/20/2025 12:31 PM EDT) [facility] NMO IgG Autoantibodies <1.5 0.0 - 3.0 U/mL 03/24/2025 3:05 PM EDT [facility] Comment: Negative: 0.0 - 3.0 Positive: >3.0 Blood Venous blood specimen / Unknown Venipuncture / Unknown 03/20/2025 12:31 PM EDT 03/20/2025 12:[address] [facility] - 03/24/2025 3:05 PM EDT Performed at: [address] [id number] [place]ker: Melissa Wetzel MD, Phone: [phone] Ayanna Jaffe MD LAB BLOOD ORDERABLES Fin al Result Performing Organization Address [facility] de Phone Number [facility] * (ABNORMAL) CBC auto differential (03/20/2025 12:31 PM EDT) Only the most recent of2 resultswithin the time period is included. [facility] WBC 11.0(H) 4.8 - 10.8 K/mcL LAB HEMETOLOGY METHOD 03/20/2025 2:23 PM EDT [facility] RBC 3.50(L) 3.80 - 4.80 M/mcL LAB HEMETOLOGY METHOD 03/20/2025 2:23 PM EDT [facility] Hemoglobin 11.5 11.5 - 16.0 g/dL LAB HEMETOLOGY METHOD 03/20/2025 2:23 PM EDT [facility] Hematocrit 36.7 35.0 - 47.0 % LAB HEMETOLOGY METHOD 03/20/2025 2:[facility] MCV 105.2(H) 79.0 - 98.0 FL LAB HEMETOLOGY METHOD 03/20/2025 2:23 PM EDT [facility] MCH 33.0(H) 27.0 - 32.0 pcg LAB HEMETOLOGY METHOD 03/20/2025 2:23 PM [facility] MCHC 31.3(L) 32.0 - 37.0 g/dL LAB HEMETOLOGY METHOD 03/20/2025 2:23 PM [facility] RDW 14.1 11.0 - 15.0 % LAB HEMETOLOGY METHOD 03/20/2025 2:23 PM EDT [facility] Platelets 243 130 - 400 K/mcL LAB HEMETOLOGY METHOD 03/20/2025 2:23 PM [facility] MPV 11.3(H) 7.0 - 11.0 FL LAB HEMETOLOGY METHOD 03/20/2025 2:23 PM [facility] NRBC 0.2 <1.0 % LAB HEMETOLOGY METHOD 03/20/2025 2:23 PM EDT [facility] NRBC Absolute 0.02 <0.10 K/mcL LAB HEMETOLOGY METHOD 03/20/2025 2:23 PM [facility] Neutrophils Relative 75.9 % LAB HEMETOLOGY METHOD 03/20/2025 2:23 PM [facility] Lymphocytes Relative 8.7 % LAB HEMETOLOGY METHOD 03/20/2025 2:23 PM [facility] Monocytes Relative 12.2 % LAB HEMETOLOGY METHOD 03/20/2025 2:23 PM EDT [facility] Eosinophils Relative 0.7 % LAB HEMETOLOGY METHOD 03/20/2025 2:23 PM EDT [facility] Basophils Relative 0.7 % LAB HEMETOLOGY METHOD 03/20/2025 2:23 PM EDT [facility] Immature Granulocytes Relative 1.8 % LAB HEMETOLOGY METHOD 03/20/2025 2:23 PM EDT [facility] Neutrophils Absolute 8.36(H) 1.50 - 7.00 K/mcL LAB HEMETOLOGY METHOD 03/20/2025 2:23 PM EDT [facility] Lymphocytes Absolute 0.96(L) 1.00 - 5.00 K/mcL LAB HEMETOLOGY METHOD 03/20/2025 2:23 PM EDT [facility] Monocytes Absolute 1.34(H) 0.20 - [...] MD LAB BLOOD ORDERABLES Fin al Result [facility] [address] [place] [address], [place] [phone] * Sedimentation rate (03/20/2025 12:31 PM EDT) Sed Rate 25 0 - 30 mm/hr LAB HEMETOLOGY METHOD 03/20/2025 2:14 PM EDT [facility] Blood Venous blood specimen / Unknown Venipuncture / Unknown 03/20/2025 12:31 PM EDT 03/20/2025 12:31 PM EDT Ayanna Jaffe MD LAB BLOOD ORDERABLES Fin al Result Performing Organization Address [facility]/State/ZIP Co de Phone Number [facility] [address] [place] [address], [place] [phone] * ECG-Annotated (02/24/2025) Provider Onbase MD ECG ORDERABLES Final Result * CT Head wo Contrast (02/23/2025 2:53 PM EDT) Anatomical Region Laterality Modality Head and Neck Computed Tomogra phy 02/23/2025 2:57 PM EDT Impressions 02/23/2025 3:01 PM EDT Impression: No acute hemorrhage or intracranial mass effect. No significant change. Telerad PA ([id number]) -------- FINAL REPORT -------- Dictated By: Fawn Levin Dictated Date: 02/23/2025 14:57 ET Assigned Physician: Fawn Levin Reviewed and Electronically Signed By: Fawn Levin Signed Date: 02/23/2025 15:01 ET Workstation ID: [id number] Transcribed By: Self Edit Transcribed Date: 02/23/2025 [...] mass effect. No significant change. Telekarla KAPOOR ([id number]) -------- FINAL REPORT -------- Dictated By: Fawn Levin Dictated Date: 02/23/2025 14:57 ET Assigned Physician: Fawn Levin Reviewed and Electronically Signed By: Fawn Levin Signed Date: 02/23/2025 15:01 ET Workstation ID: [id number] Transcribed By: Self Edit Transcribed Date: 02/23/2025 [...] appropriate, to exclude this possibility. Telekarla KAPOOR ([id number]) -------- FINAL REPORT -------- Dictated By: Fawn Levin Dictated Date: 02/23/2025 15:01 ET Assigned Physician: Fawn Levin Reviewed and Electronically Signed By: Fawn Levin Signed Date: 02/23/2025 15:05 ET Workstation ID: [id number] Transcribed By: Self Edit Transcribed Date: 02/23/2025 15:01 ET Narrative 02/23/2025 3:05 PM EDT History: Left lower quadrant abdominal pain. Comparison: 08/23/23 Technique: Helical volumetric imaging of the abdomen and pelvis was performed without intravenous or oral contrast. DLP: 480.07 mGy/cm [employer] VCT Iterative reconstruction technique Findings: Chronic pleural-parenchymal [...] intravenous or oral contrast. DLP: 480.07 mGy/cm [employer] IQ VCT Iterative reconstruction technique Findings: Chronic pleural-parenchymal [...] appropriate, to exclude this possibility. Telekarla KAPOOR ([id number]) -------- FINAL REPORT -------- Dictated By: Fawn Levin Dictated Date: 02/23/2025 15:01 ET Assigned Physician: Fawn Levin Reviewed and Electronically Signed By: Fawn Levin Signed Date: 02/23/2025 15:05 ET Workstation ID: [id number] Transcribed By: Self Edit Transcribed Date: 02/23/2025 [...] Final R esult Performing Organization Address City/[facility] Co de Phone Number [facility] [address] [place] [address], [place] [phone] * Blood Culture, Peripheral Draw #2 (02/23/2025 2:25 PM EDT) Only the most recent of2 resultswithin the time period is included. Pathologist [facility] Culture, Blood No growth at 5 days 02/28/2025 3:01 PM EDT [facility] Blood Venous blood specimen / Unknown Venipuncture / Unknown 02/23/2025 2:25 PM EDT 02/23/2025 2:35 PM EDT [facility] LAB MICROBIOLOGY - GENERAL O RDERABLES Final Result Performing Organization Address City/[facility]/ZIP Co de Phone Number [facility] [address] [place] [address], [place] [phone] * XR Chest 1 View (02/23/2025 2:15 PM EDT) Anatomical Region Laterality Modality Body Radiographic Monserrat ging 02/23/2025 2:33 PM EDT Impressions 02/23/2025 2:37 PM EDT Impression: Stable radiographic appearance of the chest, including volume loss and chronic pleural-parenchymal opacity in the left hemithorax consistent with previously treated lung carcinoma. No acute process identified. Telerad PA ([id number]) -------- FINAL REPORT -------- Dictated By: Fawn Levin Dictated Date: 02/23/2025 14:33 ET Assigned Physician: Fawn Levin Reviewed and Electronically Signed By: Fawn Levin Signed Date: 02/23/2025 14:37 ET Workstation ID: [id number] Transcribed By: Self Edit Transcribed Date: 02/23/2025 14:33 ET Narrative 02/23/2025 2:37 PM EDT History: Dyspnea. Personal history of lung carcinoma. Comparison: 07/30/23, thoracic CT 09/09/24 [place], [place] Findings: Portable AP upright chest at [...] lung carcinoma. Comparison: 07/30/23, thoracic CT 09/09/24 [place], [place] Findings: Portable AP upright chest at [...] carcinoma. No acute process identified. Telerad PA ([id number]) -------- FINAL REPORT -------- Dictated By: Fawn Levin Dictated Date: 02/23/2025 14:33 ET Assigned Physician: Fawn Levin Reviewed and Electronically Signed By: Fawn Levin Signed Date: 02/23/2025 14:37 ET Workstation ID: [id number] Transcribed By: Self Edit Transcribed Date: 02/23/2025 14:33 ET [facility]fs[facility] IMG XR PROCEDURES Final Resu lt * Urinalysis with reflex microscopic and culture (02/23/2025 2:04 PM EDT) Pathologist [facility] Specific [place] Urine 1.006 1.003 - 1.030 LAB URINALYSIS - AUTOMATED METHOD 02/23/2025 2:17 PM EDT [facility] pH, Urine 7.5 5.0 - 8.0 pH LAB URINALYSIS - AUTOMATED METHOD 02/23/2025 2:17 PM [facility] Leukocytes, Urine Negative Negative LAB URINALYSIS - AUTOMATED METHOD 02/23/2025 2:17 PM [facility] Nitrite, Urine Negative Negative LAB URINALYSIS - AUTOMATED METHOD 02/23/2025 2:17 PM [facility] Protein, Urine Negative <=Trace mg/dL LAB URINALYSIS - AUTOMATED METHOD 02/23/2025 2:17 PM [facility] Glucose, Urine Negative Negative mg/dL LAB URINALYSIS - AUTOMATED METHOD 02/23/2025 2:17 PM [facility] Ketones, Urine Negative Negative mg/dL LAB URINALYSIS - AUTOMATED METHOD 02/23/2025 2:17 PM [facility] Urobilinogen, Urine 0.2 0.2 - 1.0 mg/dL LAB URINALYSIS - AUTOMATED METHOD 02/23/2025 2:17 PM [facility] Bilirubin, Urine Negative Negative LAB URINALYSIS - AUTOMATED METHOD 02/23/2025 2:17 PM [facility] Blood, Urine Negative Negative LAB URINALYSIS - AUTOMATED METHOD 02/23/2025 2:17 PM EDT [facility] Urine Urine specimen obtained by clean catch procedure / Unknown Non-blood Collection / Unknown 02/23/2025 2:04 PM EDT 02/23/2025 2:05 PM EDT [facility] LAB URINE ORDERABLES Final R esult Performing Organization Address City/[facility]/ZIP Co de Phone Number [facility] [address] [place] [address], [place] [phone] * Martinez urine culture tube (02/23/2025 2:04 PM EDT) [facility] Extra Tube Hold for add-ons. 02/23/2025 4:01 PM EDT [facility] Comment:Auto resulted. Urine Urine specimen obtained by clean catch procedure / Unknown Non-blood Collection / Unknown 02/23/2025 2:04 PM EDT 02/23/2025 2:05 PM EDT [facility] LAB URINE ORDERABLES Final R esult Performing Organization Address City/[facility] Co de Phone Number [facility] [address] [place] [address], [place] [phone] * Troponin I high sensitivity (02/23/2025 1:15 PM EDT) [facility] High Sensitivity Troponin I 25 <=54 [...] Final R esult Performing Organization Address City/[facility]/ZIP Co de Phone Number [facility] [address] [place] [address], [place] [phone] * (ABNORMAL) Prothrombin time with INR (02/23/2025 1:15 PM EDT) [facility] Protime 14.9(H) 10.6 - 13.9 sec LAB COAGULATION METHOD 02/23/2025 1:52 PM EDT [facility] INR 1.2 LAB COAGULATION METHOD 02/23/2025 1:52 PM EDT [facility] Blood Venous blood specimen / Unknown Venipuncture / Unknown 02/23/2025 1:15 PM EDT 02/23/2025 1:40 PM EDT us Afsaneh KAPOOR LAB BLOOD ORDERABLES Final R esult Performing Organization Address City/[facility]/ZIP Co de Phone Number [facility] [address] [place] [address], [place] [phone] * Type and screen (02/23/2025 1:15 PM EDT) [facility] ABO Group A 02/23/2025 2:47 PM EDT [facility] Rh Type Positive 02/23/2025 2:47 PM EDT [facility] Antibody Screen Negative 02/23/2025 2:47 PM EDT [facility] Blood Venous blood specimen / Unknown Venipuncture / Unknown 02/23/2025 1:15 PM EDT 02/23/2025 1:40 PM EDT us Afsaneh [facility] LAB BLOOD BANK TEST ORDERABL ES Final Result [facility] [address] [place] [address], * (ABNORMAL) Comprehensive Metabolic Panel (CMP) (02/23/2025 1:15 PM EDT) Sodium 136 133 - 145 mmol/L LAB CHEMISTRY METHOD 02/23/2025 2:13 PM EDT [facility] Potassium 3.5 3.5 - 5.5 mmol/L LAB CHEMISTRY METHOD 02/23/2025 2:13 PM EDT [facility] Chloride 97 96 - 110 mmol/L LAB CHEMISTRY METHOD 02/23/2025 2:13 PM [facility] CO2 33(H) 21 - 32 mmol/L LAB CHEMISTRY METHOD 02/23/2025 2:13 PM EDT [facility] Anion Gap 6 3 - 11 LAB CHEMISTRY METHOD 02/23/2025 2:13 PM [facility] Glucose 100 70 - 100 mg/dL LAB CHEMISTRY METHOD 02/23/2025 2:13 PM [facility] BUN 23 5 - 25 mg/dL LAB CHEMISTRY METHOD 02/23/2025 2:13 PM [facility] Creatinine 0.83 0.50 - 1.10 mg/dL LAB CHEMISTRY METHOD 02/23/2025 2:13 PM EDT [facility] eGFR 71 >=60 mL/min/1. 73m2 LAB CHEMISTRY METHOD 02/23/2025 2:13 PM [facility] Comment:Calculation based on the Chronic Kidney Disease Epidemiology Collaboration (CKD-EPI) equation refit without adjustment for race. BUN/Creatinine Ratio 27.7 LAB CHEMISTRY METHOD 02/23/2025 2:13 PM T [facility] Calcium 10.0 8.5 - 10.5 mg/dL LAB CHEMISTRY METHOD 02/23/2025 2:13 PM EDT [facility] AST (SGOT) 29 10 - 42 unit/L LAB CHEMISTRY METHOD 02/23/2025 2:13 PM EDT [facility] ALT (SGPT) 24 10 - 60 unit/L LAB CHEMISTRY METHOD 02/23/2025 2:13 PM EDT [facility] Alkaline Phosphatase 72 42 - 121 unit/L LAB CHEMISTRY METHOD 02/23/2025 2:13 PM EDT [facility] Total Protein 6.9 6.0 - 8.0 g/dL LAB CHEMISTRY METHOD 02/23/2025 2:13 PM EDT [facility] Albumin 3.5 3.2 - 5.0 g/dL LAB CHEMISTRY METHOD 02/23/2025 2:13 PM EDT [facility] Total Bilirubin 0.5 0.0 - 1.4 mg/dL LAB CHEMISTRY METHOD 02/23/2025 2:13 PM EDT [facility] Blood Venous blood specimen / Unknown Venipuncture / Unknown 02/23/2025 1:15 PM EDT 02/23/2025 1:39 PM EDT [facility] LAB BLOOD ORDERABLES Final R esult [facility] [address] [place] [address], * 12-Lead ECG (02/23/2025 1:05 PM EDT) Ventricular Rate ECG 79 BPM GEMUSE Atrial Rate 79 BPM GEMUSE P-R Interval 164 ms GEMUSE QRS Duration 138 ms GEMUSE Q-T Interval 422 ms GEMUSE QTc 483 ms GEMUSE P Wave [place] 68 degrees GEMUSE R [place] -59 degrees GEMUSE T [place] 62 degrees GEMUSE ECG Interpretation Normal sinus [...] Documents on File Type Date Recorded Patient Germination Worker Expl anation Health Care Decision (hx) [...] (hx) 10/04/2013 AD LACEY DIRECTIVE Care Teams [employer] Promotional Sales Relationship Specialty Start Date End Date Caitlyn Bowie MD [address] [place] [id number] PCP - General Internal Medicine 12/10/24
--- OUTSIDE RECORDS SUMMARY | 2025-04-22 21:19 | XMS_ITS | Encounter Summary ---
Author Organization [facility] and [facility] Address [address] [place] [address] Care Team Providers Care Aviation Project Manager Name Role Phone Caitlyn Bowie MD Primary Care Provider +1- [phone] Encounter Details Date Type Department Care Team (Late Contact Info) Description 04/12/2022 Scanned Document [facility] Health Information Management [address] [place] [address] External, Provider Social History Tobacco Use Types [...] [facility] 240 [facility] [address] [place], [place] [address] Ronald Mills MD [address] [place] [address] [address] [place] [address] documented as of this encounter [...] as of this encounter Care Teams Aviation Project Manager Relationship Specialty Start Date End Date Caitlyn Bowie MD [address] [address] PCP - General Internal Medicine 05/06/21 documented as of this encounter
--- OUTSIDE RECORDS SUMMARY | 2025-04-22 21:19 | XMS_ITS | Encounter Summary ---
Author Organization [facility] and [facility] Address [address] [place] [address] Care Team Providers Care Technical Education Teacher Name Role Phone Caitlyn Bowie MD Primary Care Provider +1- [phone] Encounter Details Date Type Department Care Team (Late st Contact Info) Description 11/03/2015 Scanned Document [facility] Health Information Management [address] [place] [address] External, Provider Social History Tobacco Use Types [...] [facility] Building [address] [place], [place] [id number] Ronald Mills MD 240 [facility] [address] [place] [address] documented as of this encounter Procedures Procedure Name Priority Date/Time Associated Diagnosis Comments US RESULT SCAN Routine 11/03/2015 documented in this encounter Results * US Result Scan (11/03/2015) us Provider External IMG SCAN REPORTS Edited Result - Final [facility] [place], [place], [facility] [[email or web address]] documented in this encounter Visit Diagnoses Not on filedocumented in this encounter Additional Health Concerns Infection Onset Date Last Indicated Resolved Time COVID-19 03/05/2022 03/05/2022 03/15/2022 7:18 PM EDT documented as of this encounter Care Teams Technical Education Teacher Relationship Specialty Start Date End Date Caitlyn Bowie MD 3400 [facility] [address] 1 [place] [address] PCP - General Internal Medicine 05/06/21 Henry Kelly MD Pulmonary Department 175 [facility], [address] [place] [address] Physician Pulmonary Disease 09/06/17 06/22/20 documented as of this encounter
--- OUTSIDE RECORDS SUMMARY | 2025-04-22 21:19 | XMS_ITS | Encounter Summary ---
Author Organization [facility] Address [address] [place] [address] Care Team Providers Care Information Security Analyst Name Role Phone Caitlyn Bowie MD Primary Care Provider +1- [phone] Encounter Details Date Type Department Care Team (Late st Contact Info) Description 12/16/2015 Scanned Document [facility] Health Information Management [address] [place] [address] External, Provider Social History Tobacco Use Types [...] [facility] 240 [facility] Building [address] [place], [place] [id number] Ronald Mills MD 240 [facility] [address] [place] [address] documented as of this encounter Procedures Procedure Name Priority Date/Time Associated Diagnosis Comments US RESULT SCAN Routine 12/16/2015 documented in this encounter Results * US Result Scan (12/16/2015) us Provider External IMG SCAN REPORTS Edited Result - Final [facility] [place], [place], [facility] documented in this encounter Visit Diagnoses Not on filedocumented in this encounter Additional Health Concerns Infection Onset Date Last Indicated Resolved Time COVID-19 03/05/2022 03/05/2022 03/15/2022 7:18 PM EDT documented as of this encounter Care Teams Information Security Analyst Relationship Specialty Start Date End Date Caitlyn Bowie MD 3400 [facility] [address] [place] [address] PCP - General Internal Medicine 05/06/21 Henry Kelly MD Pulmonary Department 175 [facility], [address] [place] [address] Physician Pulmonary Disease 09/06/17 06/22/20 documented as of this encounter
--- OUTSIDE RECORDS SUMMARY | 2025-04-22 21:19 | XMS_ITS | Encounter Summary ---
Author Organization [facility] and [facility] Address [address] [place] [address] Care Team Providers Care Billet Bed Operator Name Role Phone Caitlyn Bowie MD Primary Care Provider +1- [phone] Encounter Details Date Type Department Care Team (Late st Contact Info) Description 10/23/2018 Scanned Document [facility] Health Information Management [address] [place] [address] External, Provider Social History Tobacco Use Types [...] [facility] Building [address] [place], [place] [phone] Ronald Mills MD [address] [place] [address] [address] [place] [address] documented as of this encounter Visit Diagnoses Not on filedocumented in this encounter Additional Health Concerns Infection Onset Date Last Indicated Resolved Time COVID-19 03/05/2022 03/05/2022 03/15/2022 7:18 PM EDT documented as of this encounter Care Teams Billet Bed Operator Relationship Specialty Start Date End Date Caitlyn Bowie MD 3400 [facility] 1 [place] [address] PCP - General Internal Medicine 05/06/21 Henry Kelly MD Pulmonary Department 175 [facility], [address] [place] [address] Physician Pulmonary Disease 09/06/17 06/22/20 documented as of this encounter
--- OUTSIDE RECORDS SUMMARY | 2025-04-22 21:19 | XMS_ITS | Encounter Summary ---
Author Organization [facility] and [facility] Address [address] [place] [address] Care Team Providers Care Wing Coverer Name Role Phone Caitlyn Bowie MD Primary Care Provider +1- [phone] Encounter Details Date Type Department Care Team (Late st Contact Info) Description 05/04/2022 Scanned Document INTERFACE DEFAULT [address] [place] [address] System, Provider Not In Social History Tobacco [...] [facility] 240 [facility] Building [address] [place] [address] Ronald Mills MD [address] [place] [address] [address] [place] [address] documented as of this encounter Visit Diagnoses Not on filedocumented in this encounter Additional Health Concerns Assessment Noted Time PHQ-9 Depression Total Score: 2 11/07/19 19 2:06 PM EDT documented as of this encounter Care Teams Wing Coverer Relationship Specialty Start Date End Date Caitlyn Bowie MD [address] [address] PCP - General Internal Medicine 05/06/21 documented as of this encounter
--- OUTSIDE RECORDS SUMMARY | 2025-04-22 21:19 | XMS_ITS | Encounter Summary ---
Author Organization [facility] and [facility] Address [address] [place] [address] Care Team Providers Care Gate Supervisor Name Role Phone Caitlyn Bowie MD Primary Care Provider +1- [phone] Encounter Details Date Type Department Care Team (Late st Contact Info) Description 04/18/2022 Scanned Document INTERFACE DEFAULT [address] [place] [address] System, Provider Not In Social History Tobacco [...] [facility] [place] Building [address] [place] [address] Ronald Mills MD [address] [place] [address] [address] [place] [address] documented as of this encounter Visit Diagnoses Not on filedocumented in this encounter Additional Health Concerns Assessment Noted Time PHQ-9 Depression Total Score: 2 11/07/19 19 2:06 PM EDT documented as of this encounter Care Teams Gate Supervisor Relationship Specialty Start Date End Date Caitlyn Bowie MD [address] [address] PCP - General Internal Medicine 05/06/21 documented as of this encounter
--- OUTSIDE RECORDS SUMMARY | 2025-04-22 21:19 | XMS_ITS | Encounter Summary ---
Author Organization [facility] and [facility] Address [address] [place] [address] Care Team Providers Care Cook Specialty Name Role Phone Caitlyn Bowie MD Primary Care Provider +1- [phone] Encounter Details Date Type Department Care Team (Late st Contact Info) Description 08/09/2017 Scanned Document Cardi[facility] Medicine at [address] [place] [address] [place] [address] System, Provider Not In Social History Tobacco [...] [facility] 240 [facility] Building [address] [place] [address] Ronald Mills MD 240 [facility] [address] [place] [address] documented as of this [...] as of this encounter Care Teams Cook Specialty Relationship Specialty Start Date End Date Caitlyn Bowie MD 3400 [facility] 1 [place] [address] PCP - General Internal Medicine 05/06/21 Henry Kelly MD Pulmonary Department 175 [facility], [address] [place] [address] Physician Pulmonary Disease 09/06/17 06/22/20 documented as of this encounter
--- OUTSIDE RECORDS SUMMARY | 2025-04-22 21:19 | XMS_ITS | Patient Health Record ---
Author Organization [facility] Address [address] [facility] [address] [place] [address] Care Team Providers Care Residential Tech Name Role Phone EVELIN RAMSAY Primary Care Provider Yenny Hou Unavailable [phone] Allergies Allergen (clinical drug ingredient) Drug/Non Drug [...] UROBILINOGEN Neg BILIRUBIN Neg BLOOD Neg Urinalysis, Complete-[id number] Reviewed date:05/04/2024 11:35:42 PM Interpretation: Performing Lab:[facility], [address] [facility], [place], Phone - [phone], Director - Arely Notes/Report: Specific Morton 1.009 1.005-1.030 pH 6.5 5.0-7.5 Urine-Color Yellow [...] Bacteria None seen None seen/Few Urine Culture, Routine-[id number] Reviewed date:05/04/2024 11:35:22 PM Interpretation: Performing Lab:[facility], [address] [place] [address], Phone - [phone], Director - Arely Notes/Report: Urine Culture, Routine Final report Result 1 Culture shows less than 10,000 colony forming units of bacteria per milliliter of urine. This colony count is not generally considered to be clinically significant. PDF Report Reviewed date:05/04/2024 11:35:04 PM Interpretation: Performing Lab:[facility], [address] [place] [address], Phone - [phone], Director - Arely Notes/Report: Urinalysis Reviewed date:07/09/2024 [...] 25MCG 1 ORAL daily; Durati on: -3 [facility] 06/10/2014 Active ZyrTEC [...] 50MG 1 ORAL at bedtime; Duration: -3 [facility] 06/10/2014 Active Meclizine HCl 25 MG 1 tablet as needed Orally [facility] 06/10/2014 Active Albuterol Sulfate (2.5 MG/3ML)0.083% Inhalation 4 x a day prn 06/10/2014 Active Valium 5MG 1 tablet as needed O RAL at bedtime, 1/2 tab prn during the day [facility] 06/10/2014 Active Social [...] Status Risk Notes Problem Postmenopausal atrophic vaginitis (87953627) Postmenopausal atrophic vaginitis (N95.2) Active confirmed Problem Age-related osteoporosis (962558053) Age-related osteoporosis without current pathological fracture (M81.0) Active confirmed Problem Urgent desire to urinate (59657748) Urgency of urination (R39.15) Active confirmed 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 Problem Chronic systolic heart failure (451453356) Chronic systolic (congestive) heart failure (I50.22) Active confirmed Problem Chronic obstructive pulmonary disease (10054013) Chronic obstructive pulmonary disease, unspecified (J44.9) Active confirmed Problem Functional urinary incontinence (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) Functional 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) Active confirmed Problem Personal history of primary malignant neoplasm of bronchus (123932225) 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) Active confirmed Vital Signs Temperature 97.7 degrees Fahrenheit 07/18/2024 Blood pressure diastolic 62 mm Hg 07/18/2024 Height 63 in 07/18/2024 Blood pressure systolic 102 mm Hg 07/18/2024 Weight 126 lbs 07/18/2024 BMI 22.32 kg/m2 07/18/2024 Encounters Encounter Location Date Provider Diagnosis Total [address] [address] 05/03/2024 Yennydorothy Elizalde Urgency of urination R39.15 and Abscess of vulva N76.[address] [address] 05/10/2024 Yenny Elizalde Abscess of vulva N76 .[address] [address] 05/17/2024 Yenny Elizalde Abscess of vulva N76 .[address] [address] 07/09/2024 Yenny Tonio Urgency of urination R39.15 ; Acute vaginitis N76.0 and Postmenopausal atrophic vaginitis N95.[address] [address] 07/18/2024 Yenny Elizalde Encounter for screening mammogram for malignant neoplasm of breast Z12.31 and Mastodynia N64.[address] [address] 05/10/2024 Yenny Lovettva Total [address] [address] 05/13/2024 Yenny Elizalde [facility] [address] [facility] [address] [place] [address] 06/11/2024 Yenny Elizalde Assessments Encounter Date Diagnosis [...] [facility] AND DISCUSSED THIS [...] Date MEDICARE [address] VEDA NIEVES [id number] SHIRLEY CINDA Self - patient is the insured [employer] [address] [place] [address] [phone] [id number] DANIEL WATSONE Self - patient is [...]
--- OUTSIDE RECORDS SUMMARY | 2025-04-22 21:19 | XMS_ITS | Encounter Summary ---
Author Organization [facility] and [facility] Address [address] [place] [address] Care Team Providers Care Block And Case Maker Name Role Phone Caitlyn Bowie MD Primary Care Provider +1- [phone] Encounter Details Date Type Department Care Team (Late st Contact Info) Description 04/16/2022 Scanned Document INTERFACE DEFAULT [address] [place] [address] System, Provider Not In Social History Tobacco [...] [facility] 240 [facility] Building [address] [place], [place] [address] Ronald Mills MD [address] [place] [address] [address] [place] [address] documented as of this encounter [...] as of this encounter Care Teams Block And Case Maker Relationship Specialty Start Date End Date Caitlyn Bowie MD [address] [address] PCP - General Internal Medicine 05/06/21 documented as of this encounter
--- OUTSIDE RECORDS SUMMARY | 2025-04-22 21:19 | XMS_ITS | Encounter Summary ---
Author Organization [facility] and [facility] Address [address] [place] [address] Care Team Providers Care Vendor Management Specialist Name Role Phone Caitlyn Bowie MD Primary Care Provider +1- [phone] Reason for Visit * Reason Comments Results Encounter Details Date Type Department Care Team (Late st Contact Info) Description 03/15/2022 Telephone [facility] at [address] [address] Ronald Mills MD [address] [place] [address] Results Social History Tobacco Use Types [...] [facility] 240 [facility] Building [address] [place], [place] [address] Ronald Mills MD 240 [facility] [address] [place] [address] documented as of this encounter Visit Diagnoses Not on filedocumented in this encounter Additional Health Concerns Infection Onset Date Last Indicated Resolved Time COVID-19 03/05/2022 03/05/2022 03/15/2022 7:18 PM EDT Assessment Noted Time PHQ-9 Depression Total Score: 2 11/07/19 19 2:06 PM EDT documented as of this encounter Care Teams Vendor Management Specialist Relationship Specialty Start Date End Date Caitlyn Bowie MD [address] [address] PCP - General Internal Medicine 05/06/21 documented as of this encounter
--- OUTSIDE RECORDS SUMMARY | 2025-04-22 21:19 | XMS_ITS | Encounter Summary ---
Author Organization [facility] Address [address] [place] [address] Care Team Providers Care Business Planning Manager Name Role Phone Caitlyn Bowie MD Primary Care Provider +1- [phone] Encounter Details Date Type Department Care Team (Late st Contact Info) Description 04/22/2019 Scanned Document [facility] Health Information Management [address] [place] [address] External, Provider Social History Tobacco Use Types [...] [facility] 240 [facility] Building [address] [place] [address] Ronald Mills MD [address] [place] [address] [address]1 [place] [address] documented as of this encounter Visit Diagnoses Not on filedocumented in this encounter Additional Health Concerns Infection Onset Date Last Indicated Resolved Time COVID-19 03/05/2022 03/05/2022 03/15/2022 7:18 PM EDT Assessment Noted Time PHQ-9 Depression Total Score: 2 11/07/19 19 2:06 PM EDT documented as of this encounter Care Teams Business Planning Manager Relationship Specialty Start Date End Date Caitlyn Bowie MD 3400 [facility] 1 [place] [address] PCP - General Internal Medicine 05/06/21 Henry Kelly MD Pulmonary Department 175 [facility], [address] [place] [address] Physician Pulmonary Disease 09/06/17 06/22/20 documented as of this encounter
--- OUTSIDE RECORDS SUMMARY | 2025-04-22 21:19 | XMS_ITS | Encounter Summary ---
Author Organization [facility] Address [address] [place] [address] Care Team Providers Care Wage Analyst Name Role Phone Caitlyn Bowie MD Primary Care Provider +1- [phone] Encounter Details Date Type Department Care Team (Late st Contact Info) Description 04/14/2022 Scanned Document INTERFACE DEFAULT [address] [place] [address] System, Provider Not In Social History Tobacco [...] [facility] Building [address] [place] [address] Ronald Mills MD [address] [place] [address] [address] [place] [address] documented as of this encounter Visit Diagnoses Not on filedocumented in this encounter Additional Health Concerns Assessment Noted Time PHQ-9 Depression Total Score: 2 11/07/19 19 2:06 PM EDT documented as of this encounter Care Teams Wage Analyst Relationship Specialty Start Date End Date Caitlyn Bowie MD [address] [address] PCP - General Internal Medicine 05/06/21 documented as of this encounter
--- OUTSIDE RECORDS SUMMARY | 2025-04-22 21:19 | XMS_ITS | Encounter Summary ---
Author Organization [facility] and [facility] Address [address] [place] [address] Care Team Providers Care Out Patient Therapist Name Role Phone Caitlyn Bowie MD Primary Care Provider +1- [phone] Encounter Details Date Type Department Care Team (Late st Contact Info) Description 04/13/2022 Scanned Document INTERFACE DEFAULT [address] [place] [address] System, Provider Not In Social History Tobacco [...] [facility] 240 [facility] Building [address] [place], [place] [address] Ronald Mills MD [address] [place] [address] [address] [place] [address] documented as of this encounter [...] documented as of this encounter Care Teams Out Patient Therapist Relationship Specialty Start Date End Date Caitlyn Bowie MD [address] [address] PCP - General Internal Medicine 05/06/21 documented as of this encounter
--- OUTSIDE RECORDS SUMMARY | 2025-04-22 21:19 | XMS_ITS | Encounter Summary ---
Author Organization [facility] Address [address] [place] [address] Care Team Providers Care Laboratory Operations Coordinator Name Role Phone Caitlyn Bowie MD Primary Care Provider +1- [phone] Encounter Details Date Type Department Care Team (Late st Contact Info) Description 04/16/2021 Scanned Document INTERFACE DEFAULT [address] [place] [address] System, Provider Not In Social History Tobacco [...] [facility] 240 [facility] Building [address] [place], [place] [address] Ronald Mills MD [address] [place] [address] [address] [place] [address] documented as of this encounter [...] as of this encounter Care Teams Laboratory Operations Coordinator Relationship Specialty Start Date End Date Caitlyn Bowie MD [facility] [address] [address] PCP - General Internal Medicine 05/06/21 documented as of this encounter
--- OUTSIDE RECORDS SUMMARY | 2025-04-22 21:19 | XMS_ITS | Encounter Summary ---
Author Organization [facility] Address [address] [place] [address] Care Team Providers Care Direct Support Professional Name Role Phone Caitlyn Bowie MD Primary Care Provider +1- [phone] Encounter Details Date Type Department Care Team (Late st Contact Info) Description 11/04/2015 Scanned Document [facility] Health Information Management [address] [place] [address] External, Provider Social History Tobacco Use Types [...] [facility] [address] [facility] Building [address] [place], [place] [address] Ronald Mills MD 240 [facility] [address] [place] [address] documented as of this encounter Procedures Procedure Name Priority Date/Time Associated Diagnosis Comments NUC MED/PET RESULT SCAN Routine 11/04/2015 documented in this encounter Results * Nuc Med/PET Result Scan (11/04/2015) us Provider External IMG SCAN REPORTS Edited Result - Final [facility] [place], [place], [facility] documented in this encounter Visit Diagnoses Not on filedocumented in this encounter Additional Health Concerns Infection Onset Date Last Indicated Resolved Time COVID-19 03/05/2022 03/05/2022 03/15/2022 7:18 PM EDT documented as of this encounter Care Teams Direct Support Professional Relationship Specialty Start Date End Date Caitlyn Bowie MD 3400 [facility] Max 1 [place] [address] PCP - General Internal Medicine 05/06/21 Henry Kelly MD Pulmonary Department 175 [facility], [address] [place] [address] Physician Pulmonary Disease 09/06/17 06/22/20 documented as of this encounter
--- OUTSIDE RECORDS SUMMARY | 2025-04-22 21:20 | XMS_ITS | Encounter Summary ---
Author Organization [facility] Address [address] [place] [address] Care Team Providers Care Food Service Hotel Runner Name Role Phone Caitlyn Bowie MD Primary Care Provider +1- [phone] Encounter Details Date Type Department Care Team (Late st Contact Info) Description 01/13/2019 Scanned Document [facility] Health Information Management [address] [place] [address] External, Provider Social History Tobacco Use Types [...] [facility] 240 [facility] Building [address] [place] [address] Ronald Mills MD [address] [place] [address] [address] [place] [address] documented as of this encounter [...] of this encounter Care Teams Food Service Hotel Runner Relationship Specialty Start Date End Date Caitlyn Bowie MD 3400 [facility] 1 [place] [address] PCP - General Internal Medicine 05/06/21 Henry Kelly MD Pulmonary Department 175 [facility], [address] [place] [address] Physician Pulmonary Disease 09/06/17 06/22/20 documented as of this encounter
--- OUTSIDE RECORDS SUMMARY | 2025-04-22 21:20 | XMS_ITS | Encounter Summary ---
Author Organization [facility] and [facility] Address [address] [place] [address] Care Team Providers Care Online Services Manager Name Role Phone Caitlyn Bowie MD Primary Care Provider +1- [phone] Encounter Details Date Type Department Care Team (Late st Contact Info) Description 02/06/2019 Scanned Document [facility] Health Information Management [address] [place] [address] External, Provider Social History Tobacco Use Types [...] [facility] Building [address] [place] [address] Ronald Mills MD [address] [place] [address] [address] [place] [address] documented as of this [...] as of this encounter Care Teams Online Services Manager Relationship Specialty Start Date End Date Caitlyn Bowie MD 3400 [facility] 1 [place] [address] PCP - General Internal Medicine 05/06/21 Henry Kelly MD Pulmonary Department 175 [facility], [address] [place] [address] Physician Pulmonary Disease 09/06/17 06/22/20 documented as of this encounter
--- OUTSIDE RECORDS SUMMARY | 2025-04-22 21:20 | XMS_ITS | Encounter Summary ---
Author Organization [facility] and [facility] Address [address] [place] [address] Care Team Providers Care Lumber Tailer Name Role Phone Caitlyn Bowie MD Primary Care Provider +1- [phone] Encounter Details Date Type Department Care Team (Late st Contact Info) Description 01/17/2019 Scanned Document [facility] Health Information Management [address] [place] [address] External, Provider Social History Tobacco Use Types [...] [facility] at [facility] 240 [facility] Building [address] [place] [address] Ronald Mills MD [address] [place] [address] [address] [place] [address] documented as of this encounter [...] as of this encounter Care Teams Lumber Tailer Relationship Specialty Start Date End Date Caitlyn Bowie MD 3400 [facility] 1 [place] [address] PCP - General Internal Medicine 05/06/21 Henry Kelly MD Pulmonary Department 175 [facility], [address] [place] [address] Physician Pulmonary Disease 09/06/17 06/22/20 documented as of this encounter
--- OUTSIDE RECORDS SUMMARY | 2025-04-22 21:20 | XMS_ITS | Encounter Summary ---
Author Organization [place] and [facility] Address [address] [place] [address] Care Team Providers Care Chemical Plant Manager Name Role Phone Caitlyn Bowie MD Primary Care Provider +1- [phone] Encounter Details Date Type Department Care Team (Late st Contact Info) Description 02/25/2021 Scanned Document INTERFACE DEFAULT [address] [place] [address] System, Provider Not In Social History Tobacco [...] [facility] at [facility] 240 [facility] Building [address] [place] [address] Ronald Mills MD [address] [place] [address] [address] [place] [address] documented as of this encounter [...] as of this encounter Care Teams Chemical Plant Manager Relationship Specialty Start Date End Date Caitlyn Bowie MD [address] [address] PCP - General Internal Medicine 05/06/21 documented as of this encounter
--- OUTSIDE RECORDS SUMMARY | 2025-04-22 21:20 | XMS_ITS | Encounter Summary ---
Author Organization [facility] and [facility] Address [address] [place] [address] Care Team Providers Care Urology Physician Name Role Phone Caitlyn Bowie MD Primary Care Provider +1- [phone] Encounter Details Date Type Department Care Team (Late st Contact Info) Description 01/26/2018 Scanned Document [facility] Health Information Management [address] [place] [address] External, Provider Social History Tobacco Use Types [...] Center at [facility] 240 [facility] Building [address] [place], [place] [phone] Ronald Mills MD 240 [facility] [address] [place] [address] documented as of this encounter Visit Diagnoses Not on filedocumented in this encounter Additional Health Concerns Infection Onset Date Last Indicated Resolved Time COVID-19 03/05/2022 03/05/2022 03/15/2022 7:18 PM EDT documented as of this encounter Care Teams Urology Physician Relationship Specialty Start Date End Date Caitlyn Bowie MD 3400 [facility] 1 [place] [address] PCP - General Internal Medicine 05/06/21 Henry Kelly MD Pulmonary Department 175 [facility], [address] [place] [address] Physician Pulmonary Disease 09/06/17 06/22/20 documented as of this encounter
--- OUTSIDE RECORDS SUMMARY | 2025-04-22 21:20 | XMS_ITS | Encounter Summary ---
Author Organization [facility] and [facility] Address [address] [place] [address] Care Team Providers Care Professor/Nurse Anesthetist Name Role Phone Caitlyn Bowie MD Primary Care Provider +1- [phone] Encounter Details Date Type Department Care Team (Late st Contact Info) Description 01/02/2019 Scanned Document [facility] Health Information Management [address] [place] [address] External, Provider Social History Tobacco Use Types [...] [facility] 240 [facility] Building [address] [place] [address] Ronald Mills MD [address] [place] [address] [address]1 [place] [address] documented as of this encounter [...] documented as of this encounter Care Teams Professor/Nurse Anesthetist Relationship Specialty Start Date End Date Caitlyn Bowie MD 3400 [facility] 1 [place] [address] PCP - General Internal Medicine 05/06/21 Henry Kelly MD Pulmonary Department 175 [facility], [address] [place] [address] Physician Pulmonary Disease 09/06/17 06/22/20 documented as of this encounter
--- OUTSIDE RECORDS SUMMARY | 2025-04-22 21:20 | XMS_ITS | Encounter Summary ---
Author Organization [facility] Address [address] [place] [address] Care Team Providers Care Asparagus Cutter Name Role Phone Caitlyn Bowie MD Primary Care Provider +1- [phone] Encounter Details Date Type Department Care Team (Late st Contact Info) Description 01/30/2019 Scanned Document [facility] Health Information Management [address] [place] [phone] External, Provider Social History Tobacco Use Types [...] Center at [facility] 240 [facility] Building [address] [place] [address] Ronald Mills MD [address] [place] [address] [address] [place] [address] documented as of this encounter [...] documented as of this encounter Care Teams Asparagus Cutter Relationship Specialty Start Date End Date Caitlyn Bowie MD 3400 [facility] 1 [place] [address] PCP - General Internal Medicine 05/06/21 Henry Kelly MD Pulmonary Department 175 [facility], [address] [place] [address] Physician Pulmonary Disease 09/06/17 06/22/20 documented as of this encounter
--- OUTSIDE RECORDS SUMMARY | 2025-04-22 21:20 | XMS_ITS | Clinical Summary ---
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
--- OUTSIDE RECORDS SUMMARY | 2025-04-22 21:20 | XMS_ITS | Encounter Summary ---
Author Organization [facility] and [facility] Address [address] [place] [address] Care Team Providers Care Solar Crew Member Name Role Phone Caitlyn Bowie MD Primary Care Provider +1- [phone] Encounter Details Date Type Department Care Team (Late st Contact Info) Description 09/18/2020 Scanned Document INTERFACE DEFAULT [address] [place] [address] System, Provider Not In Social History [...] 240 [facility] Building [address] [place] [address] Ronald Mills MD [address] [place] [address] [address]1 [place] [address] documented as of this encounter Visit Diagnoses Not on filedocumented in this encounter Additional Health Concerns Infection Onset Date Last Indicated Resolved Time COVID-19 03/05/2022 03/05/2022 03/15/2022 7:18 PM EDT Assessment Noted Time PHQ-9 Depression Total Score: 2 11/07/19 19 2:06 PM EDT documented as of this encounter Care Teams Solar Crew Member Relationship Specialty Start Date End Date Caitlyn Bowie MD [address] [address] PCP - General Internal Medicine 05/06/21 documented as of this encounter
--- OUTSIDE RECORDS SUMMARY | 2025-04-22 21:20 | XMS_ITS | Encounter Summary ---
Author Organization [facility] and [facility] Address [address] [place] [address] Care Team Providers Care Refining Equipment Operator Name Role Phone Caitlyn Bowie MD Primary Care Provider +1- [phone] Encounter Details Date Type Department Care Team (Late Contact Info) Description 01/27/2021 Scanned Document [facility] at [address] [address] External, Provider Social History Tobacco Use Types [...] [facility] Building [address] [place], [place] [address] Ronald Mills MD [address] [place] [address] [address]1 [place] [address] documented as of this encounter [...] documented as of this encounter Care Teams Refining Equipment Operator Relationship Specialty Start Date End Date Caitlyn Bowie MD [address] [address] PCP - General Internal Medicine 05/06/21 documented as of this encounter
--- OUTSIDE RECORDS SUMMARY | 2025-04-22 21:20 | XMS_ITS | Encounter Summary ---
Author Organization [facility] and [facility] Address [address] [place] [address] Care Team Providers Care Aligner Barrel And Receiver Name Role Phone Caitlyn Bowie MD Primary Care Provider +1- [phone] Encounter Details Date Type Department Care Team (Late st Contact Info) Description 02/02/2021 Scanned Document INTERFACE DEFAULT [address] [place] [address] System, Provider Not In Social History Tobacco [...] [facility] 240 [facility] Building [address] [place] [address] Ronald Mills MD [address] [place] [address] [address] [place] [address] documented as of this encounter [...] documented as of this encounter Care Teams Aligner Barrel And Receiver Relationship Specialty Start Date End Date Caitlyn Bowie MD [facility] [address] [address] PCP - General Internal Medicine 05/06/21 documented as of this encounter
--- OUTSIDE RECORDS SUMMARY | 2025-04-22 21:20 | XMS_ITS | Encounter Summary ---
Author Organization [facility] Address [address] [place] [address] Phone Care Team Providers Care Pull Through Hooker Name Role Phone Caitlyn Bowie MD Primary Care Provider +1- [phone] Encounter Details Date Type Department Care Team (Late Contact Info) Description 12/12/2024 Documentation Only [facility] [address] [place] [address] Marina Abdi [address] [place] [address] Social History Tobacco Use Types [...] [facility] [address] [place] [address] Rubén Ashraf MD [address] [place] [address] [place] [address] documented as of this encounter Visit Diagnoses Not on filedocumented in this encounter Care Teams Pull Through Hooker Relationship Specialty Start Date End Date Caitlyn Bowie MD 3400 [place], [place] PCP - General Internal Medicine 09/24/24 documented as of this encounter
--- OUTSIDE RECORDS SUMMARY | 2025-04-22 21:20 | XMS_ITS | Encounter Summary ---
Author Organization [facility] and [facility] Address 20 [place] [address] Care Team Providers Care Clinical Support Nurse Name Role Phone Caitlyn Bowie MD Primary Care Provider +1- [phone] Encounter Details Date Type Department Care Team (Late st Contact Info) Description 01/28/2019 Scanned Document Cardiovascular Medicine at [address]nd [place] [address] Cristian Arreguin MBBS [address] [place] [address] Social History Tobacco Use Types [...] PM EDT Telemedicine Cancer Center at [address] [place] [address] Ronald Mills MD [address] [place] [address] [address] [place] [address] documented as of this encounter Visit Diagnoses Not on filedocumented in this encounter Additional Health Concerns Infection Onset Date Last Indicated Resolved Time COVID-19 03/05/2022 03/05/2022 03/15/2022 7:18 PM EDT Assessment Noted Time PHQ-9 Depression Total Score: 2 11/07/19 19 2:06 PM EDT documented as of this encounter Care Teams Clinical Support Nurse Relationship Specialty Start Date End Date Caitlyn Bowie MD 3400 [facility] 1 [place] [address] PCP - General Internal Medicine 05/06/21 Henry Kelly MD Pulmonary Department [address] [place] [address], [address] [place] [address] Physician Pulmonary Disease 09/06/17 06/22/20 documented as of this encounter
--- OUTSIDE RECORDS SUMMARY | 2025-04-22 21:20 | XMS_ITS | Encounter Summary ---
Author Organization [facility] Address [address] [place] [address] Care Team Providers Care Prize Fighter Name Role Phone Caitlyn Bowie MD Primary Care Provider +1- [phone] Encounter Details Date Type Department Care Team (Late st Contact Info) Description 01/26/2018 Scanned Document [facility] Health Information Management [address] [place] [address] External, Provider Social History Tobacco Use Types [...] – [facility] 240 [facility] Building [address] [place], [place] [address] Ronald Mills MD [address] [place] [address] [address]1 [place] [address] documented as of this encounter [...] documented as of this encounter Care Teams Prize Fighter Relationship Specialty Start Date End Date Caitlyn Bowie MD 3400 [facility] 1 [place] [address] PCP - General Internal Medicine 05/06/21 Henry Kelly MD Pulmonary Department 175 [facility], [address] [place] [address] Physician Pulmonary Disease 09/06/17 06/22/20 documented as of this encounter
--- OUTSIDE RECORDS SUMMARY | 2025-04-22 21:20 | XMS_ITS | Encounter Summary ---
Author Organization [facility] and [facility] Address [address] [place] [address] Care Team Providers Care Commodity Buyer Name Role Phone Caitlyn Bowie MD Primary Care Provider +1- [phone] Encounter Details Date Type Department Care Team (Late st Contact Info) Description 09/01/2017 Scanned Document [facility] Health Information Management [address] [place] [address] External, Provider Social History Tobacco Use Types [...] Center at [facility] 240 [facility] Building [address] [place], [place] [address] Ronald Mills MD [address] [place] [address] [address]1 [place] [address] documented as of this encounter [...] Start Date End Date Caitlyn Bowie MD [facility] 1 [place] [address] PCP - General Internal Medicine 05/06/21 Henry Kelly MD Pulmonary Department 175 [facility], [address] [place] [address] Physician Pulmonary Disease 09/06/17 06/22/20 documented as of this encounter
--- OUTSIDE RECORDS SUMMARY | 2025-04-22 21:20 | XMS_ITS | Encounter Summary ---
Author Organization [facility] and [facility] Address [address] [place] [address] Care Team Providers Care Club Steward Name Role Phone Caitlyn Bowie MD Primary Care Provider +1- [phone] Encounter Details Date Type Department Care Team (Late st Contact Info) Description 02/08/2021 Scanned Document INTERFACE DEFAULT [address] [place] [address] System, Provider Not In Social History Tobacco [...] [facility] 240 [facility] Building [address] [place] [address] Ronald Mills MD [address] [place] [address] [address] [place] [address] documented as of this encounter Visit Diagnoses Not on filedocumented in this encounter Additional Health Concerns Infection Onset Date Last Indicated Resolved Time COVID-19 03/05/2022 03/05/2022 03/15/2022 7:18 PM EDT Assessment Noted Time PHQ-9 Depression Total Score: 2 11/07/19 19 2:06 PM EDT documented as of this encounter Care Teams Club Steward Relationship Specialty Start Date End Date Caitlyn Bowie MD [address] [address] PCP - General Internal Medicine 05/06/21 documented as of this encounter
--- OUTSIDE RECORDS SUMMARY | 2025-04-22 21:20 | XMS_ITS | Encounter Summary ---
Author Organization [facility] and [facility] Address [address] [place] [address] Care Team Providers Care Optical Engineering Technician Name Role Phone Caitlyn Bowie MD Primary Care Provider +1- [phone] Encounter Details Date Type Department Care Team (Late st Contact Info) Description 03/14/2021 Scanned Document INTERFACE DEFAULT [address] [place] [address] System, Provider Not In Social History Tobacco [...] [facility] 240 [facility] Building [address] [place], [place] [address] Ronald Mills MD [address] [place] [address] [address] [place] [address] documented as of this encounter [...] as of this encounter Care Teams Optical Engineering Technician Relationship Specialty Start Date End Date Caitlyn Bowie MD [address] [place] [address] [address] PCP - General Internal Medicine 05/06/21 documented as of this encounter
--- OUTSIDE RECORDS SUMMARY | 2025-04-22 21:20 | XMS_ITS | Encounter Summary ---
Author Organization [facility] and [facility] Address [address] [place] [address] Care Team Providers Care Credit Card Control Clerk Name Role Phone Caitlyn Bowie MD Primary Care Provider +1- [phone] Encounter Details Date Type Department Care Team (Late st Contact Info) Description 10/16/2013 Scanned Document [facility] [address] [place] [address], 2nd floor [facility], [address] [place], [place] [address] Suzy Kong MD [address] [place] [address] Social History Tobacco Use Types Packs/Day [...] PM EDT Telemedicine Cancer Center at [address] [place] [address] Ronald Mills MD 240 [facility] A1 [place] [address] documented as of this encounter Visit Diagnoses Not on filedocumented in this encounter Additional Health Concerns Infection Onset Date Last Indicated Resolved Time COVID-19 03/05/2022 03/05/2022 03/15/2022 7:18 PM EDT documented as of this encounter Care Teams Credit Card Control Clerk Relationship Specialty Start Date End Date Caitlyn Bowie MD 3400 [facility] Max 1 [place] [address] PCP - General Internal Medicine 05/06/21 Henry Kelly MD Pulmonary Department 175 [facility], [address] [place] [address] Physician Pulmonary Disease 09/06/17 06/22/20 documented as of this encounter
--- OUTSIDE RECORDS SUMMARY | 2025-04-22 21:20 | XMS_ITS | Encounter Summary ---
Author Organization [facility] Address [address] [place] [address] Phone Care Team Providers Care Flower Arranger Name Role Phone Caitlyn Bowie MD Primary Care Provider +1- [phone] Encounter Details Date Type Department Care Team (Late st Contact Info) Description 10/01/2024 Documentation Only [facility] [address] [place] [address] Ron Taylor PR [address] [place] [address] Social History Tobacco Use Types [...] [facility] [address] [place] [place] [address] Rubén Ashraf MD [address] [place] [address] [place] [address] documented as of this encounter Visit Diagnoses Not on filedocumented in this encounter Care Teams Flower Arranger Relationship Specialty Start Date End Date Caitlyn Bowie MD 3400 [place], [place] PCP - General Internal Medicine 09/24/24 documented as of this encounter
--- OUTSIDE RECORDS SUMMARY | 2025-04-22 21:20 | XMS_ITS | Encounter Summary ---
Author Organization [facility] and [facility] Address [address] [place] [address] Care Team Providers Care Dye Range Tender Name Role Phone Caitlyn Bowie MD Primary Care Provider +1- [phone] Encounter Details Date Type Department Care Team (Late st Contact Info) Description 03/22/2021 Scanned Document INTERFACE DEFAULT [address] [place] [phone] System, Provider Not In Social History Tobacco [...] at [facility] 240 [facility] Building [address] [place] [address] Ronald Mills MD [address] [place] [address] [address] [place] [address] documented as of this encounter Visit Diagnoses Not on filedocumented in this encounter Additional Health Concerns Infection Onset Date Last Indicated Resolved Time COVID-19 03/05/2022 03/05/2022 03/15/2022 7:18 PM EDT Assessment Noted Time PHQ-9 Depression Total Score: 2 11/07/19 19 2:06 PM EDT documented as of this encounter Care Teams Dye Range Tender Relationship Specialty Start Date End Date Caitlyn Bowie MD [address] [address] PCP - General Internal Medicine 05/06/21 documented as of this encounter
--- OUTSIDE RECORDS SUMMARY | 2025-04-22 21:20 | XMS_ITS | Encounter Summary ---
Author Organization [facility] Address [address] [place] [address] Care Team Providers Care Burner Technician Name Role Phone Caitlyn Bowie MD Primary Care Provider +1- [phone] Encounter Details Date Type Department Care Team (Late st Contact Info) Description 02/08/2016 Scanned Document [facility] Health Information Management [address] [place] [address] External, Provider Social History Tobacco Use Types [...] – [facility] 240 [facility] Building [address] [place], [place] [address] Ronald Mills MD 240 [facility] A1 [place] [address] documented as of this encounter Visit Diagnoses Not on filedocumented in this encounter Additional Health Concerns Infection Onset Date Last Indicated Resolved Time COVID-19 03/05/2022 03/05/2022 03/15/2022 7:18 PM EDT documented as of this encounter Care Teams Burner Technician Relationship Specialty Start Date End Date Caitlyn Bowie MD 3400 [facility] 1 [place] [address] PCP - General Internal Medicine 05/06/21 Henry Kelly MD Pulmonary Department 175 [facility], [address] [place] [address] Physician Pulmonary Disease 09/06/17 06/22/20 documented as of this encounter
--- OUTSIDE RECORDS SUMMARY | 2025-04-22 21:20 | XMS_ITS | Encounter Summary ---
Author Organization [facility] and [facility] Address [address] [place] [address] Care Team Providers Care President College Or [employer] Name Role Phone Caitlyn Bowie MD Primary Care Provider +1- [phone] Encounter Details Date Type Department Care Team (Late st Contact Info) Description 03/11/2021 Scanned Document INTERFACE DEFAULT [address] [place] [address] System, Provider Not In Social History Tobacco [...] at [facility] [address] [facility] [address] [place], [place] [phone] Ronald Mills MD [address] [place] [address] [address] [place] [address] documented as of this encounter [...] as of this encounter Care Teams President College Or University Relationship Specialty Start Date End Date Caitlyn Bowie MD [facility] [address] [address] PCP - General Internal Medicine 05/06/21 documented as of this encounter
--- OUTSIDE RECORDS SUMMARY | 2025-04-22 21:20 | XMS_ITS | Encounter Summary ---
Author Organization [facility] and [facility] Address [address] [place] [address] Care Team Providers Care Seismometer Operator Name Role Phone Caitlyn Bowie MD Primary Care Provider +1- [phone] Encounter Details Date Type Department Care Team (Late st Contact Info) Description 02/24/2021 Scanned Document INTERFACE DEFAULT [address] [place] [address] System, Provider Not In Social History Tobacco [...] [facility] 240 [facility] [address] [place] [address] Ronald Mills MD [address] [place] [address] [address] [place] [address] documented as of this encounter [...] documented as of this encounter Care Teams Seismometer Operator Relationship Specialty Start Date End Date Caitlyn Bowie MD [address] [address] PCP - General Internal Medicine 05/06/21 documented as of this encounter
--- OUTSIDE RECORDS SUMMARY | 2025-04-22 21:20 | XMS_ITS | Encounter Summary ---
Author Organization [facility] Address [address] [place] [address] Care Team Providers Care Building Performance Consultant Name Role Phone Caitlyn Bowie MD Primary Care Provider +1- [phone] Encounter Details Date Type Department Care Team (Late st Contact Info) Description 02/28/2021 Scanned Document INTERFACE DEFAULT [address] [place] [address] System, Provider Not In Social History Tobacco [...] at [facility] 240 [facility] [address] [place] [address] Ronald Mills MD [address] [place] [address] [address] [place] [address] documented as of this encounter [...] as of this encounter Care Teams Building Performance Consultant Relationship Specialty Start Date End Date Caitlyn Bowie MD [address] [address] PCP - General Internal Medicine 05/06/21 documented as of this encounter
--- OUTSIDE RECORDS SUMMARY | 2025-04-22 21:20 | XMS_ITS | Encounter Summary ---
Author Organization [facility] and [facility] Address [address] [place] [address] Care Team Providers Care Account Services Representative Name Role Phone Caitlyn Bowie MD Primary Care Provider +1- [phone] Encounter Details Date Type Department Care Team (Late st Contact Info) Description 01/28/2019 Scanned Document [facility] Health Information Management [address] [place] [address] External, Provider Social History Tobacco Use Types [...] [facility] 240 [facility] [address] [place] [address] Ronald Mills MD [address] [place] [address] [address] [place] [address] documented as of this encounter Visit Diagnoses Not on filedocumented in this encounter Additional Health Concerns Infection Onset Date Last Indicated Resolved Time COVID-19 03/05/2022 03/05/2022 03/15/2022 7:18 PM EDT Assessment Noted Time PHQ-9 Depression Total Score: 2 11/07/19 19 2:06 PM EDT documented as of this encounter Care Teams Account Services Representative Relationship Specialty Start Date End Date Caitlyn Bowie MD [address] [facility] 1 [place] [address] PCP - General Internal Medicine 05/06/21 Henry Kelly MD Pulmonary Department 175 [facility], [address] [place] [address] Physician Pulmonary Disease 09/06/17 06/22/20 documented as of this encounter
--- OUTSIDE RECORDS SUMMARY | 2025-04-22 21:20 | XMS_ITS | Encounter Summary ---
Author Organization [facility] and [facility] Address [address] [place] [address] Care Team Providers Care Hospital Education Coordinator Name Role Phone Caitlyn Bowie MD Primary Care Provider +1- [phone] Encounter Details Date Type Department Care Team (Late st Contact Info) Description 11/29/2017 Scanned Document [facility] Health Information Management [address] [place] [address] External, Provider Social History Tobacco Use Types [...] [facility] Building [address] [place], [place] [phone] Ronald Mills MD [address] [place] [address] [address] [place] [address] documented as of [...] MD 3400 [facility] 1 [place] [address] PCP - General Internal Medicine 05/06/21 Henry Kelly MD Pulmonary Department 175 [facility], [address] [place] [address] Physician Pulmonary Disease 09/06/17 06/22/20 documented as of this encounter
--- OUTSIDE RECORDS SUMMARY | 2025-04-22 21:20 | XMS_ITS | Encounter Summary ---
Author Organization [facility] and [facility] Address [address] [place] [address] Care Team Providers Care Sheep Sorter Name Role Phone Caitlyn Bowie MD Primary Care Provider +1- [phone] Encounter Details Date Type Department Care Team (Late st Contact Info) Description 01/26/2019 Scanned Document [facility] Health Information Management [address] [place] [address] External, Provider Social History Tobacco Use Types [...] [facility] 240 [facility] Building [address] [place] [address] Ronald Mills MD [address] [place] [address] [address] [place] [address] documented as of this encounter [...] documented as of this encounter Care Teams Sheep Sorter Relationship Specialty Start Date End Date Caitlyn Bowie MD 3400 [facility] 1 [place] [address] PCP - General Internal Medicine 05/06/21 Henry Kelly MD Pulmonary Department 175 [facility], [address] [place] [address] Physician Pulmonary Disease 09/06/17 06/22/20 documented as of this encounter
--- OUTSIDE RECORDS SUMMARY | 2025-04-22 21:20 | XMS_ITS | Encounter Summary ---
Author Organization [facility] and [facility] Address [address] [place] [address] Care Team Providers Care Numerical Control Operator Name Role Phone Caitlyn Bowie MD Primary Care Provider +1- [phone] Encounter Details Date Type Department Care Team (Late st Contact Info) Description 12/28/2018 Scanned Document [facility] Health Information Management [address] [place] [address] External, Provider Social History Tobacco Use Types [...] [facility] 240 [facility] Building [address] [place] [address] Ronald Mills MD [address] [place] [address] [address]1 [place] [address] documented as of this encounter [...] of this encounter Care Teams Numerical Control Operator Relationship Specialty Start Date End Date Caitlyn Bowie MD 3400 [facility] Max 1 [place] [address] PCP - General Internal Medicine 05/06/21 Henry Kelly MD Pulmonary Department 175 [facility], [address] [place] [address] Physician Pulmonary Disease 09/06/17 06/22/20 documented as of this encounter
--- OUTSIDE RECORDS SUMMARY | 2025-04-22 21:20 | XMS_ITS | Encounter Summary ---
Author Organization [facility] and [facility] Address [address] [place] [address] Care Team Providers Care Senior Pensions Administrator Name Role Phone Caitlyn Bowie MD Primary Care Provider +1- [phone] Encounter Details Date Type Department Care Team (Late Contact Info) Description 02/03/2021 Scanned Document [facility] Health Information Management [address] [place] [address] External, Provider Social History Tobacco Use Types [...] [facility] 240 [facility] Building [address] [place], [place] [phone] Ronald Mills MD [address] [place] [address] [address]1 [place] [address] documented as of this encounter [...] as of this encounter Care Teams Senior Pensions Administrator Relationship Specialty Start Date End Date Caitlyn Bowie MD [address] [address] PCP - General Internal Medicine 05/06/21 documented as of this encounter
--- OUTSIDE RECORDS SUMMARY | 2025-04-22 21:20 | XMS_ITS | Encounter Summary ---
Author Organization [facility] and [facility] Address [address] [place] [address] Care Team Providers Care Commissary Representative Name Role Phone Caitlyn Bowie MD Primary Care Provider +1- [phone] Encounter Details Date Type Department Care Team (Late st Contact Info) Description 04/11/2021 Scanned Document INTERFACE DEFAULT [address] [place] [address] System, Provider Not In Social History Tobacco [...] [facility] 240 [facility] Building [address] [place], [place] [address] Ronald Mills MD [address] [place] [address] [address] [place] [address] documented as [...] as of this encounter Care Teams Commissary Representative Relationship Specialty Start Date End Date Caitlyn Bowie MD [address] [address] PCP - General Internal Medicine 05/06/21 documented as of this encounter
--- OUTSIDE RECORDS SUMMARY | 2025-04-22 21:20 | XMS_ITS | Encounter Summary ---
Author Organization [facility] and [facility] Address [address] [place] [address] Care Team Providers Care Elementary Summer School Teacher Name Role Phone Caitlyn Bowie MD Primary Care Provider +1- [phone] Encounter Details Date Type Department Care Team (Late st Contact Info) Description 03/12/2019 Scanned Document [facility] Health Information Management [address] [place] [address] External, Provider Social History Tobacco Use Types [...] [facility] Building [address] [place] [address] Ronald Mills MD [address] [place] [address] [address] [place] [address] documented as of this encounter [...] as of this encounter Care Teams Elementary Summer School Teacher Relationship Specialty Start Date End Date Caitlyn Bowie MD 3400 [facility] 1 [place] [address] PCP - General Internal Medicine 05/06/21 Henry Kelly MD Pulmonary Department 175 [facility], [address] [place] [address] Physician Pulmonary Disease 09/06/17 06/22/20 documented as of this encounter
--- OUTSIDE RECORDS SUMMARY | 2025-04-22 21:20 | XMS_ITS | Encounter Summary ---
Author Organization [facility] and [facility] Address [address] [place] [address] Care Team Providers Care Policy Change Clerks Supervisor Name Role Phone Caitlyn Bowie MD Primary Care Provider +1- [phone] Encounter Details Date Type Department Care Team (Late st Contact Info) Description 04/10/2021 Scanned Document INTERFACE DEFAULT [address] [place] [address] System, Provider Not In Social History Tobacco [...] [facility] 240 [facility] Building [address] [place] [address] Ronald Mills MD [address] [place] [address] [address] [place] [address] documented as of this encounter [...] as of this encounter Care Teams Policy Change Clerks Supervisor Relationship Specialty Start Date End Date Caitlyn Bowie MD [address] [address] PCP - General Internal Medicine 05/06/21 documented as of this encounter
--- OUTSIDE RECORDS SUMMARY | 2025-04-22 21:20 | XMS_ITS | Encounter Summary ---
Author Organization [facility] and [facility] Address [address] [place] [address] Care Team Providers Care General Helper Name Role Phone Caitlyn Bowie MD Primary Care Provider +1- [phone] Encounter Details Date Type Department Care Team (Late st Contact Info) Description 03/16/2021 Scanned Document INTERFACE DEFAULT [address] [place] [address] System, Provider Not In Social History Tobacco [...] [facility] 240 [facility] Building [address] [place] [address] Ronald Mills MD [address] [place] [address] [address] [place] [address] documented as of this encounter Visit Diagnoses Not on filedocumented in this encounter Additional Health Concerns Infection Onset Date Last Indicated Resolved Time COVID-19 03/05/2022 03/05/2022 03/15/2022 7:18 PM EDT Assessment Noted Time PHQ-9 Depression Total Score: 2 11/07/19 19 2:06 PM EDT documented as of this encounter Care Teams General Helper Relationship Specialty Start Date End Date Caitlyn Bowie MD [address] [address] PCP - General Internal Medicine 05/06/21 documented as of this encounter
--- OUTSIDE RECORDS SUMMARY | 2025-04-22 21:20 | XMS_ITS | Encounter Summary ---
Author Organization [facility] and [facility] Address [address] [place] [address] Care Team Providers Care Principal Software Engineer Name Role Phone Caitlyn Bowie MD Primary Care Provider +1- [phone] Encounter Details Date Type Department Care Team (Late st Contact Info) Description 03/15/2021 Scanned Document INTERFACE DEFAULT [address] [place] [address] System, Provider Not In Social History Tobacco [...] [facility] 240 [facility] Building [address] [place], [place] [phone] Ronald Mills MD [address] [place] [address] [address] [place] [address] documented as [...] as of this encounter Care Teams Principal Software Engineer Relationship Specialty Start Date End Date Caitlyn Bowie MD [facility] [address] [address] PCP - General Internal Medicine 05/06/21 documented as of this encounter
--- OUTSIDE RECORDS SUMMARY | 2025-04-22 21:20 | XMS_ITS | Encounter Summary ---
Author Organization [facility] and [facility] Address [address] [place] [address] Care Team Providers Care Spindle Repairer Name Role Phone Caitlyn Bowie MD Primary Care Provider +1- [phone] Encounter Details Date Type Department Care Team (Late st Contact Info) Description 03/24/2021 Scanned Document INTERFACE DEFAULT [address] [place] [address] System, Provider Not In Social History Tobacco [...] 240 [facility] Building [address] [place] [address] Ronald Mills MD [address] [place] [address] [address]1 [place] [address] documented as of this encounter Visit Diagnoses Not on filedocumented in this encounter Additional Health Concerns Infection Onset Date Last Indicated Resolved Time COVID-19 03/05/2022 03/05/2022 03/15/2022 7:18 PM EDT Assessment Noted Time PHQ-9 Depression Total Score: 2 11/07/19 19 2:06 PM EDT documented as of this encounter Care Teams Spindle Repairer Relationship Specialty Start Date End Date Caitlyn Bowie MD [address] [address] PCP - General Internal Medicine 05/06/21 documented as of this encounter
--- OUTSIDE RECORDS SUMMARY | 2025-04-22 21:20 | XMS_ITS | Encounter Summary ---
Author Organization [facility] Address [address] [place] [address] Care Team Providers Care Auto Electrical Technician Name Role Phone Caitlyn Bowie MD Primary Care Provider +1- [phone] Encounter Details Date Type Department Care Team (Late st Contact Info) Description 03/23/2021 Scanned Document INTERFACE DEFAULT [address] [place] [address] System, Provider Not In Social History Tobacco [...] [facility] 240 [facility] Building [address] [place] [address] Ronald Mills MD [address] [place] [address] [address] [place] [address] documented as of this encounter [...] as of this encounter Care Teams Auto Electrical Technician Relationship Specialty Start Date End Date Caitlyn Bowie MD [address] [address] PCP - General Internal Medicine 05/06/21 documented as of this encounter
--- OUTSIDE RECORDS SUMMARY | 2025-04-22 21:20 | XMS_ITS | Encounter Summary ---
Author Organization [facility] and [facility] Address [address] [place] [address] Care Team Providers Care Sfdc Consultant Name Role Phone Caitlyn Bowie MD Primary Care Provider +1- [phone] Encounter Details Date Type Department Care Team (Late st Contact Info) Description 02/15/2021 Scanned Document INTERFACE DEFAULT [address] [place] [address] System, Provider Not In Social History Tobacco [...] [facility] 240 [facility] Building [address] [place] [address] Ronald Mills MD [address] [place] [address] [address] [place] [address] documented as of this encounter Visit Diagnoses Not on filedocumented in this encounter Additional Health Concerns Infection Onset Date Last Indicated Resolved Time COVID-19 03/05/2022 03/05/2022 03/15/2022 7:18 PM EDT Assessment Noted Time PHQ-9 Depression Total Score: 2 11/07/19 19 2:06 PM EDT documented as of this encounter Care Teams Sfdc Consultant Relationship Specialty Start Date End Date Caitlyn Bowie MD [address] [address] PCP - General Internal Medicine 05/06/21 documented as of this encounter
--- OUTSIDE RECORDS SUMMARY | 2025-04-22 21:20 | XMS_ITS | Encounter Summary ---
Author Organization [facility] and [facility] Address [address] [place] [address] Care Team Providers Care Paper Machine Supervisor Name Role Phone Caitlyn Bowie MD Primary Care Provider +1- [phone] Encounter Details Date Type Department Care Team (Late st Contact Info) Description 03/01/2021 Scanned Document INTERFACE DEFAULT [address] [place] [address] System, Provider Not In Social History Tobacco [...] [facility] 240 [facility] Building [address] [place] [address] Ronald Mills MD [address] [place] [address] [address] [place] [address] documented as of this encounter [...] End Date Caitlyn Bowie MD [address] [address] PCP - General Internal Medicine 05/06/21 documented as of this encounter
--- OUTSIDE RECORDS SUMMARY | 2025-04-22 21:20 | XMS_ITS | Encounter Summary ---
Author Organization [facility] Address 20 [place] [address] Care Team Providers Care Packaging Tech Name Role Phone Caitlyn Bowie MD Primary Care Provider +1- [phone] Encounter Details Date Type Department Care Team (Late st Contact Info) Description 10/07/2013 Scanned Document [facility] at [address] [address] Suzy Kong MD [address] [place] [address] Social History Tobacco Use Types Packs/Day [...] 240 [facility] Building [address] [place], [place] [address] Ronald Mills MD 240 [facility] A1 [place] [address] documented as of this encounter Visit Diagnoses Not on filedocumented in this encounter Additional Health Concerns Infection Onset Date Last Indicated Resolved Time COVID-19 03/05/2022 03/05/2022 03/15/2022 7:18 PM EDT documented as of this encounter Care Teams Packaging Tech Relationship Specialty Start Date End Date Caitlyn Bowie MD 3400 [facility] Max 1 [place] [address] PCP - General Internal Medicine 05/06/21 Henry Kelly MD Pulmonary Department 175 [facility], [address] [place] [address] Physician Pulmonary Disease 09/06/17 06/22/20 documented as of this encounter
--- OUTSIDE RECORDS SUMMARY | 2025-04-22 21:20 | XMS_ITS | Encounter Summary ---
Author Organization [facility] Address [address] [place] [address] Care Team Providers Care Circular Saw Operator Name Role Phone Caitlyn Bowie MD Primary Care Provider +1- [phone] Encounter Details Date Type Department Care Team (Late st Contact Info) Description 03/08/2021 Scanned Document INTERFACE DEFAULT [address] [place] [address] System, Provider Not In Social History Tobacco [...] at [facility] 240 [facility] Building [address] [place], [place] [address] Ronald Mills MD [address] [place] [address] [address]1 [place] [address] documented as of this [...] documented as of this encounter Care Teams Circular Saw Operator Relationship Specialty Start Date End Date Caitlyn Bowie MD [facility] [address] [address] PCP - General Internal Medicine 05/06/21 documented as of this encounter
--- OUTSIDE RECORDS SUMMARY | 2025-04-22 21:20 | XMS_ITS | Encounter Summary ---
Author Organization [facility] and [facility] Address [address] [place] [address] Care Team Providers Care Category Director Name Role Phone Caitlyn Bowie MD Primary Care Provider +1- [phone] Encounter Details Date Type Department Care Team (Late st Contact Info) Description 01/07/2014 Documentation [facility] [address] [place] [address] Shilpi Ibarra [address] [place] [address] Social History Tobacco Use Types Packs/Day Years [...] from the original note were not included. [facility] Progress Note This is a 70 [...] [facility] 240 [facility] Building [address] [place], [place] [address] Ronald Mills MD [address] [place] [address] documented as of this encounter Visit Diagnoses Not on filedocumented in this encounter Additional Health Concerns Infection Onset Date Last Indicated Resolved Time COVID-19 03/05/2022 03/05/2022 03/15/2022 7:18 PM EDT documented as of this encounter Care Teams Category Director Relationship Specialty Start Date End Date Caitlyn Bowie MD [address] [place] [address] PCP - General Internal Medicine 05/06/21 Henry Kelly MD Pulmonary Department 175 [facility], [address] [place] [address] Physician Pulmonary Disease 09/06/17 06/22/20 documented as of this encounter
--- OUTSIDE RECORDS SUMMARY | 2025-04-22 21:20 | XMS_ITS | Encounter Summary ---
Author Organization [facility] and [facility] Address [address] [place] [address] Care Team Providers Care Finger Buff Sewer Name Role Phone Caitlyn Bowie MD Primary Care Provider +1- [phone] Encounter Details Date Type Department Care Team (Late st Contact Info) Description 04/11/2021 Scanned Document [facility] Health Information Management [address] [place] [address] External, Provider Social History Tobacco Use Types [...] [facility] Building [address] [place], [place] [id number] Ronald Mills MD [address] [place] [address] [address] [place] [address] documented as of this encounter Visit Diagnoses Not on filedocumented in this encounter Additional Health Concerns Infection Onset Date Last Indicated Resolved Time COVID-19 03/05/2022 03/05/2022 03/15/2022 7:18 PM EDT Assessment Noted Time PHQ-9 Depression Total Score: 2 11/07/19 19 2:06 PM EDT documented as of this encounter Care Teams Finger Buff Sewer Relationship Specialty Start Date End Date Caitlyn Bowie MD [address] [address] PCP - General Internal Medicine 05/06/21 documented as of this encounter
--- OUTSIDE RECORDS SUMMARY | 2025-04-22 21:20 | XMS_ITS | Encounter Summary ---
Author Organization [facility] and [facility] Address [address] [place] [address] Care Team Providers Care Hairspring Adjuster Name Role Phone Caitlyn Bowie MD Primary Care Provider +1- [phone] Encounter Details Date Type Department Care Team (Late st Contact Info) Description 12/27/2018 Scanned Document [facility] Health Information Management [address] [place] [address] External, Provider Social History Tobacco Use Types [...] [facility] Building [address] [place] [address] Ronald Mills MD [address] [place] [address] [address] [place] [address] documented as of this encounter [...] as of this encounter Care Teams Hairspring Adjuster Relationship Specialty Start Date End Date Caitlyn Bowie MD 3400 [facility] 1 [place] [address] PCP - General Internal Medicine 05/06/21 Henry Kelly MD Pulmonary Department 175 [facility], [address] [place] [address] Physician Pulmonary Disease 09/06/17 06/22/20 documented as of this encounter
--- OUTSIDE RECORDS SUMMARY | 2025-04-22 21:20 | XMS_ITS | Encounter Summary ---
Author Organization [facility] and [facility] Address [address] [place] [address] Care Team Providers Care Engineering Test Specialist Name Role Phone Caitlyn Bowie MD Primary Care Provider +1- [phone] Encounter Details Date Type Department Care Team (Late st Contact Info) Description 04/02/2021 Scanned Document INTERFACE DEFAULT [address] [place] [address] System, Provider Not In Social History Tobacco [...] [facility] [address] [facility] [address] [place], [place] [address] Ronald Mills MD [address] [place] [address] [address] [place] [address] documented as of this encounter [...] as of this encounter Care Teams Engineering Test Specialist Relationship Specialty Start Date End Date Caitlyn Bowie MD [address] [address] PCP - General Internal Medicine 05/06/21 documented as of this encounter
--- OUTSIDE RECORDS SUMMARY | 2025-04-22 21:20 | XMS_ITS | Encounter Summary ---
Author Organization [facility] and [facility] Address [address] [place] [address] Care Team Providers Care Nylon Mender Name Role Phone Caitlyn Bowie MD Primary Care Provider +1- [phone] Encounter Details Date Type Department Care Team (Late st Contact Info) Description 01/08/2019 Scanned Document [facility] Health Information Management [address] [place] [address] External, Provider Social History Tobacco Use Types [...] [facility] 240 [facility] Building [address] [place] [address] Ronald Mills MD [address] [place] [address] [address] [place] [address] documented as of this encounter [...] as of this encounter Care Teams Nylon Mender Relationship Specialty Start Date End Date Caitlyn Bowie MD 3400 [facility] 1 [place] [address] PCP - General Internal Medicine 05/06/21 Henry Kelly MD Pulmonary Department 175 [facility], [address] [place] [address] Physician Pulmonary Disease 09/06/17 06/22/20 documented as of this encounter
--- OUTSIDE RECORDS SUMMARY | 2025-04-22 21:20 | XMS_ITS | Encounter Summary ---
Author Organization [facility] and [facility] Address [address] [place] [address] Care Team Providers Care Occupational Therapist Rehab Manager Name Role Phone Caitlyn Bowie MD Primary Care Provider +1- [phone] Encounter Details Date Type Department Care Team (Late Contact Info) Description 02/02/2021 Scanned Document [facility] Health Information Management [address] [place] [address] External, Provider Social History Tobacco Use Types [...] [facility] Building [address] [place], [place] [address] Ronald Mills MD [address] [place] [address] [address] [place] [address] documented as of this encounter Visit Diagnoses Not on filedocumented in this encounter Additional Health Concerns Infection Onset Date Last Indicated Resolved Time COVID-19 03/05/2022 03/05/2022 03/15/2022 7:18 PM EDT Assessment Noted Time PHQ-9 Depression Total Score: 2 11/07/19 19 2:06 PM EDT documented as of this encounter Care Teams Occupational Therapist Rehab Manager Relationship Specialty Start Date End Date Caitlyn Bowie MD [address] [address] PCP - General Internal Medicine 05/06/21 documented as of this encounter
--- OUTSIDE RECORDS SUMMARY | 2025-04-22 21:20 | XMS_ITS | Encounter Summary ---
Author Organization [facility] Address [address] [place] [address] Phone Care Team Providers Care Roll Reclaimer Name Role Phone Caitlyn Bowie MD Primary Care Provider +1- [phone] Encounter Details Date Type Department Care Team (Late Contact Info) Description 12/12/2024 Documentation Only [facility] [address] [place] [address] Marina Abdi [address] [place] [address] Social History Tobacco Use Types [...] Visit [facility] [address] [place] [address] Rubén Ashraf MD [address] [place] [address] [place] [address] documented as of this encounter Visit Diagnoses Not on filedocumented in this encounter Care Teams Roll Reclaimer Relationship Specialty Start Date End Date Cailtyn Bowie MD [address]00 [place], [place] PCP - General Internal Medicine 09/24/24 documented as of this encounter
--- OUTSIDE RECORDS SUMMARY | 2025-04-22 21:20 | XMS_ITS | Encounter Summary ---
Author Organization [facility] and [facility] Address [address] [place] [address] Care Team Providers Care Bell Captain Name Role Phone Caitlyn Bowie MD Primary Care Provider +1- [phone] Encounter Details Date Type Department Care Team (Late st Contact Info) Description 08/23/2017 Scanned Document [facility] Health Information Management [address] [place] [address] External, Provider Social History Tobacco Use Types [...] [facility] 240 [facility] Building [address] [place], [place] [address] Ronald Mills MD [address] [place] [address] [address] [place] [address] documented as of this encounter [...] Bowie MD 3400 [facility] 1 [place] [address] PCP - General Internal Medicine 05/06/21 Henry Kelly MD Pulmonary Department 175 [facility], [address] [place] [address] Physician Pulmonary Disease 09/06/17 06/22/20 documented as of this encounter
--- OUTSIDE RECORDS SUMMARY | 2025-04-22 21:20 | XMS_ITS | Encounter Summary ---
Author Organization [facility] and [facility] Address [address] [place] [address] Care Team Providers Care Greige Goods Marker Name Role Phone Caitlyn Bowie MD Primary Care Provider +1- [phone] Encounter Details Date Type Department Care Team (Late st Contact Info) Description 01/09/2019 Scanned Document [facility] Health Information Management [address] [place] [address] External, Provider Social History Tobacco Use Types [...] [facility] Building [address] [place] [address] Ronald Mills MD [address] [place] [address] [address] [place] [address] documented as of this encounter [...] of this encounter Care Teams Greige Goods Marker Relationship Specialty Start Date End Date Caitlyn Bowie MD 3400 [facility] 1 [place] [address] PCP - General Internal Medicine 05/06/21 Henry Kelly MD Pulmonary Department 175 [facility], [address] [place] [address] Physician Pulmonary Disease 09/06/17 06/22/20 documented as of this encounter
--- OUTSIDE RECORDS SUMMARY | 2025-04-22 21:20 | XMS_ITS | Encounter Summary ---
Author Organization [facility] and [facility] Address [address] [place] [address] Care Team Providers Care Heating And Ventilation Engineer Name Role Phone Caitlyn Bowie MD Primary Care Provider +1- [phone] Encounter Details Date Type Department Care Team (Late st Contact Info) Description 02/03/2021 Scanned Document INTERFACE DEFAULT [address] [place] [address] System, Provider Not In Social History Tobacco [...] [facility] 240 [facility] Building [address] [place], [place] [address] Ronald Mills MD [address] [place] [address] [address] [place] [address] documented as of this encounter [...] as of this encounter Care Teams Heating And Ventilation Engineer Relationship Specialty Start Date End Date Caitlyn Bowie MD [address] [address] PCP - General Internal Medicine 05/06/21 documented as of this encounter
--- OUTSIDE RECORDS SUMMARY | 2025-04-22 21:20 | XMS_ITS | Encounter Summary ---
Author Organization [facility] and [facility] Address [address] [place] [address] Care Team Providers Care Detective Private Eye Name Role Phone Caitlyn Bowie MD Primary Care Provider +1- [phone] Encounter Details Date Type Department Care Team (Late st Contact Info) Description 02/11/2021 Scanned Document INTERFACE DEFAULT [address] [place] [address] System, Provider Not In Social History Tobacco [...] [facility] 240 [facility] Building [address] [place] [address] Ronald Mills MD [address] [place] [address] [address] [place] [address] documented as [...] as of this encounter Care Teams Detective Private Eye Relationship Specialty Start Date End Date Caitlyn Bowie MD [address] [address] PCP - General Internal Medicine 05/06/21 documented as of this encounter
--- OUTSIDE RECORDS SUMMARY | 2025-04-22 21:20 | XMS_ITS | Encounter Summary ---
Author Organization [facility] and [facility] Address [address] [place] [address] Care Team Providers Care Produce Runner Name Role Phone Caitlyn Bowie MD Primary Care Provider +1- [phone] Encounter Details Date Type Department Care Team (Late st Contact Info) Description 02/07/2021 Scanned Document INTERFACE DEFAULT [address] [place] [address] System, Provider Not In Social History Tobacco [...] [facility] 240 [facility] Building [address] [place], [place] [phone] Ronald Mills MD [address] [place] [address] [address] [place] [address] documented as of this encounter [...] as of this encounter Care Teams Produce Runner Relationship Specialty Start Date End Date Caitlyn Bowie MD [address] [address] PCP - General Internal Medicine 05/06/21 documented as of this encounter
--- OUTSIDE RECORDS SUMMARY | 2025-04-22 21:20 | XMS_ITS | Encounter Summary ---
Author Organization [facility] Address [address] [place] [address] Care Team Providers Care Info Analyst Name Role Phone Caitlyn Bowie MD Primary Care Provider +1- [phone] Encounter Details Date Type Department Care Team (Late st Contact Info) Description 01/13/2021 Scanned Document Cancer Center at [address] [address] Ronald Mills MD [address] [address] Social History Tobacco Use [...] [address] [place] [address] Ronald Mills MD [address] [address] documented as of this [...] documented as of this encounter Care Teams Info Analyst Relationship Specialty Start Date End Date Caitlyn Bowie MD [address] [address] PCP - General Internal Medicine 05/06/21 documented as of this encounter
--- OUTSIDE RECORDS SUMMARY | 2025-04-22 21:21 | XMS_ITS | Encounter Summary ---
Author Organization [facility] and [facility] Address 20 [place] [address] Care Team Providers Care Suspect Artist Name Role Phone Caitlyn Bowie MD Primary Care Provider +1- [phone] Encounter Details Date Type Department Care Team (Late st Contact Info) Description 07/27/2016 Scanned Document Thoracic Oncology Program at [address] [address] Suzy Kong MD [address] [place] [address] Social History Tobacco Use Types Packs/Day [...] PM EDT Telemedicine Cancer Center at [address] [place], [place] [phone] Ronald Mills MD 240 [facility] [address] [place] [address] documented as of this encounter Visit Diagnoses Not on filedocumented in this encounter Additional Health Concerns Infection Onset Date Last Indicated Resolved Time COVID-19 03/05/2022 03/05/2022 03/15/2022 7:18 PM EDT documented as of this encounter Care Teams Suspect Artist Relationship Specialty Start Date End Date Caitlyn Bowie MD 3400 [facility] Max 1 [place] [address] PCP - General Internal Medicine 05/06/21 Henry Kelly MD Pulmonary Department 175 [facility], [address] [place] [address] Physician Pulmonary Disease 09/06/17 06/22/20 documented as of this encounter
--- OUTSIDE RECORDS SUMMARY | 2025-04-22 21:21 | XMS_ITS | Encounter Summary ---
Author Organization [facility] and [facility] Address 20 [place] [address] Care Team Providers Care Med Spa Manager Name Role Phone Caitlyn Bowie MD Primary Care Provider +1- [phone] Encounter Details Date Type Department Care Team (Late st Contact Info) Description 07/27/2016 Scanned Document Thoracic Oncology Program at [address] [address] Suzy Kong MD [address] [place] [address] Social History Tobacco Use Types Packs/Day [...] PM EDT Telemedicine Cancer Center at [address] [place], [place] [address] Ronald Mills MD 240 [facility] [address] [place] [address] documented as of this encounter Visit Diagnoses Not on filedocumented in this encounter Additional Health Concerns Infection Onset Date Last Indicated Resolved Time COVID-19 03/05/2022 03/05/2022 03/15/2022 7:18 PM EDT documented as of this encounter Care Teams Med Spa Manager Relationship Specialty Start Date End Date Caitlyn Bowie MD 3400 [facility] Max 1 [place] [address] PCP - General Internal Medicine 05/06/21 Henry Kelly MD Pulmonary Department 175 [facility], [address] [place] [address] Physician Pulmonary Disease 09/06/17 06/22/20 documented as of this encounter
--- OUTSIDE RECORDS SUMMARY | 2025-04-22 21:21 | XMS_ITS | Encounter Summary ---
Author Organization [facility] Address [address] [place] [address] Care Team Providers Care Duralumin Mechanic Name Role Phone Caitlyn Bowie MD Primary Care Provider +1- [phone] Encounter Details Date Type Department Care Team (Late st Contact Info) Description 04/19/2024 Scanned Document INTERFACE DEFAULT [address] [place] [address] System, Provider Not In Social History Tobacco [...] [facility] 240 [facility] Building [address] [place], [place] [address] Ronald Mills MD [address] [place] [address] [address] [place] [address] documented as of this [...] documented as of this encounter Care Teams Duralumin Mechanic Relationship Specialty Start Date End Date Caitlyn Bowie MD [address] [address] PCP - General Internal Medicine 05/06/21 documented as of this encounter
--- OUTSIDE RECORDS SUMMARY | 2025-04-22 21:21 | XMS_ITS | Encounter Summary ---
Author Organization [facility] and [facility] Address 20 [place] [address] Care Team Providers Care Occupational Therapist Assistant Name Role Phone Caitlyn Bowie MD Primary Care Provider +1- [phone] Encounter Details Date Type Department Care Team (Late st Contact Info) Description 03/26/2015 Scanned Document Cardiovascular Medicine at [address] [place] [address] Norma Renee MD [address] [place] [phone] Social History Tobacco Use Types Packs/Day Years [...] PM EDT Telemedicine Cancer Center at [address] [place], [place] [phone] Ronald Mills MD 240 [facility] A1 [place] [address] documented as of this encounter Visit Diagnoses Not on filedocumented in this encounter Additional Health Concerns Infection Onset Date Last Indicated Resolved Time COVID-19 03/05/2022 03/05/2022 03/15/2022 7:18 PM EDT documented as of this encounter Care Teams Occupational Therapist Assistant Relationship Specialty Start Date End Date Caitlyn Bowie MD [address] [facility] Max 1 [place] [address] PCP - General Internal Medicine 05/06/21 Henry Kelly MD Pulmonary Department 175 [facility], [address] [place] [address] Physician Pulmonary Disease 09/06/17 06/22/20 documented as of this encounter
--- OUTSIDE RECORDS SUMMARY | 2025-04-22 21:21 | XMS_ITS | Encounter Summary ---
Author Organization [facility] Address 20 [place] [address] Care Team Providers Care Aesthetician Name Role Phone Caitlyn Bowie MD Primary Care Provider +1- [phone] Reason for Referral * Imaging (Routine) - Closed Specialty Diagnoses / Procedures Referred By Contac t Referred To Contact Procedures NM Lung Ventilation Perfusion ([facility]) External, Provider Referral ID Status Reason Start Date Expiration Date Visits Re quested Visits Authorized [id number] Closed 08/22/2016 08/22/2017 4 4 Encounter Details Date Type Department Care Team (Late st Contact Info) Description 08/22/2016 Scanned Document Thoracic Oncology Program at [address] [address] External, Provider Social History Tobacco Use Types [...] PM EDT Telemedicine Cancer Center at [address] [place] [address] Ronald Mills MD [address] [place] [address] Rd [address] [place] [phone] documented as of this encounter Procedures Procedure Name Priority Date/Time Associated Diagnosis Comments XRAY RESULT SCAN Routine 07/27/2016 CT RESULT SCAN Routine 07/27/2016 CT RESULT SCAN Routine 07/27/2016 CARDIAC EKG RESULT SCAN Routine 07/27/2016 LAB SCAN Routine 07/27/2016 NM LUNG VENTILATION PERFUSIO N ([facility]) Routine 07/27/2016 documented in this encounter Results * Xray Result Scan (07/27/2016) us Provider External IMG SCAN REPORTS Final Result Performing Organization Address [facility] Co de Phone Number [facility] * CT Result Scan (07/27/2016) us Provider External IMG SCAN REPORTS Final Result Performing Organization Address [facility] Co de Phone Number [facility] * Cardiac EKG Result Scan (07/27/2016) us Provider External CV CARDIAC REPORT (CVR) Final Result Performing Organization Address [facility] Co de Phone Number [facility] * CT Result Scan (07/27/2016) us Provider External IMG SCAN REPORTS Final Result Performing Organization Address [facility] Co de Phone Number [facility] LAB [facility] * Lab Scan (07/27/2016) Blood specimen (specimen) us Provider External LAB BLOOD ORDERABLES Final Res ult Performing Organization Address [facility] Co de Phone Number [facility] * NM Lung Ventilation Perfusion ([facility]) (07/27/2016) Anatomical Region Laterality Modality Chest, Lung Nuclear Medicine us Provider External IMG NM ORDERABLES Final Result documented in this encounter Visit Diagnoses Not on filedocumented in this encounter Additional Health Concerns Infection Onset Date Last Indicated Resolved Time COVID-19 03/05/2022 03/05/2022 03/15/2022 7:18 PM EDT documented as of this encounter Care Teams Aesthetician Relationship Specialty Start Date End Date Caitlyn Bowie MD 3400 [facility] 1 [place] [address] PCP - General Internal Medicine 05/06/21 Henry Kelly MD Pulmonary Department 175 [facility], [address] [place] [address] Physician Pulmonary Disease 09/06/17 06/22/20 documented as of this encounter
--- OUTSIDE RECORDS SUMMARY | 2025-04-22 21:21 | XMS_ITS | Clinical Summary ---
Author Organization [facility] Address [address] [place] [address] [place] [address] Phone Care Team Providers Care Melt Down Furnace Operator Name Role Phone Caitlyn Bowie MD Primary Care Provider +1- [phone] Allergies Active Allergy Reactions Criticality Noted Date [...] Only [facility] [address] [place] [address] Marina Abdi 03/17/2025 Documentation Only [facility] [address] [place] [address] Marina Abdi 03/17/2025 Office Communication [facility] [address] [place] [address] Marina Abid 03/17/2025 Orders Only [facility], [address] [facility] [place] [address] Marina Abdi Smells of urine [...] Visit [facility], [address] [facility] [address] [place] [address] Rubén Ashraf MD [address] [facility] [place] [address] Health Maintenance Due Date Last Done Comments Influenza Vaccine (#1) 2025 0, 04/22/2019, 04/18/2016 Pneumococcal Vaccine: 50+ Years Completed 08/31/2021, 03/25/2016, 09/17/2015, Additional history exists Hepatitis B Vaccine Aged Out No longe r eligible based on patient's age to complete this topic Insurance Medicare [facility] Care Teams Melt Down Furnace Operator Relationship Specialty Start Date End Date Caitlyn Bowie MD [address] [place], [place] PCP - General Internal Medicine 09/24/24
--- OUTSIDE RECORDS SUMMARY | 2025-04-22 21:21 | XMS_ITS | Encounter Summary ---
Author Organization [facility] and [facility] Address [address] [place] [address] Care Team Providers Care Petroleum Inspector Name Role Phone Caitlyn Bowie MD Primary Care Provider +1- [phone] Encounter Details Date Type Department Care Team (Late st Contact Info) Description 12/14/2016 Scanned Document [facility] Health Information Management [address] [place] [address] External, Provider Social History Tobacco Use Types [...] at [facility] 240 [facility] Building [address] [place], [place] [phone] Ronald Mills MD 240 [facility] [address] [place] [address] documented as [...] as of this encounter Care Teams Petroleum Inspector Relationship Specialty Start Date End Date Caitlyn Bowie MD 3400 [facility] 1 [place] [address] PCP - General Internal Medicine 05/06/21 Henry Kelly MD Pulmonary Department 175 [facility], [address] [place] [address] Physician Pulmonary Disease 09/06/17 06/22/20 documented as of this encounter
--- OUTSIDE RECORDS SUMMARY | 2025-04-22 21:21 | XMS_ITS | Encounter Summary ---
Author Organization [facility] and [facility] Address [address] [place] [address] Care Team Providers Care Board Hammer Operator Name Role Phone Caitlyn Bowie MD Primary Care Provider +1- [phone] Encounter Details Date Type Department Care Team ([facility] st Contact Info) Description 08/26/2014 Documentation [facility] [address] [place] [address] Shilpi Ibarra [address] [place] [address] Social History Tobacco Use Types Packs/Day Years [...] from the original note were not included. [facility] Progress Note This is a 69 y.o. female who was provided services by [facility]. Service Provided By:: Shilpi Ibarra Patient Status: return Length of Appointment: 60 minutes documented in this encounter Plan of Treatment Upcoming Encounters Date Type Department Care Team ([facility] st Contact Info) Description 04/25/2025 4:00 PM EDT Telemedicine Cancer Center at [facility] 240 [facility] [address] [place] [address] Ronald Mills MD 240 [facility] [address] [place] [address] documented as of this encounter Visit Diagnoses Not on filedocumented in this encounter Additional Health Concerns Infection Onset Date Last Indicated Resolved Time COVID-19 03/05/2022 03/05/2022 03/15/2022 7:18 PM EDT documented as of this encounter Care Teams Board Hammer Operator Relationship Specialty Start Date End Date Caitlyn Bowie MD 3400 [facility] 1 [place] [address] PCP - General Internal Medicine 05/06/21 Henry Kelly MD Pulmonary Department 175 [facility], [address] [place] [address] Physician Pulmonary Disease 09/06/17 06/22/20 documented as of this encounter
--- OUTSIDE RECORDS SUMMARY | 2025-04-22 21:21 | XMS_ITS | Encounter Summary ---
Author Organization [facility] and [facility] Address [address] [place] [address] Care Team Providers Care Catia Designer Name Role Phone Caitlyn Bowie MD Primary Care Provider +1- [phone] Encounter Details Date Type Department Care Team (Late st Contact Info) Description 10/23/2024 Scanned Document INTERFACE DEFAULT [address] [place] [address] System, Provider Not In Social History Tobacco [...] Cancer Center at [facility] 240 [facility] Building [address] [place], [place] [phone] Ronald Mills MD [address] [place] [address] [address] [place] [address] documented as of this encounter [...] Caitlyn Bowie MD [address] [address] PCP - General Internal Medicine 05/06/21 documented as of this encounter
--- OUTSIDE RECORDS SUMMARY | 2025-04-22 21:21 | XMS_ITS | Encounter Summary ---
Author Organization [facility] and [facility] Address [address] [place] [address] Care Team Providers Care Aeronautical Engineering Professor Name Role Phone Caitlyn Bowie MD Primary Care Provider +1- [phone] Encounter Details Date Type Department Care Team (Late st Contact Info) Description 12/16/2016 Scanned Document [facility] Health Information Management [address] [place] [address] External, Provider Social History Tobacco Use Types [...] Center at [facility] 240 [facility] Building [address] [place], [place] [phone] Ronald Mills MD 240 [facility] [address] [place] [address] documented as of this encounter [...] of this encounter Care Teams Aeronautical Engineering Professor Relationship Specialty Start Date End Date Caitlyn Bowie MD 3400 [facility] 1 [place] [address] PCP - General Internal Medicine 05/06/21 Henry Kelly MD Pulmonary Department 175 [facility], [address] [place] [address] Physician Pulmonary Disease 09/06/17 06/22/20 documented as of this encounter
--- OUTSIDE RECORDS SUMMARY | 2025-04-22 21:21 | XMS_ITS | Encounter Summary ---
Author Organization [facility] and [facility] Address [address] [place] [address] Care Team Providers Care Operations Executive Name Role Phone Caitlyn Bowie MD Primary Care Provider +1- [phone] Encounter Details Date Type Department Care Team (Late st Contact Info) Description 01/28/2018 Scanned Document [facility] Health Information Management [address] [place] [address] External, Provider Social History Tobacco Use Types [...] [facility] 240 [facility] Building [address] [place], [place] [phone] Ronald Mills MD [address] [place] [address] [address] [place] [address] documented as of this encounter [...] as of this encounter Care Teams Operations Executive Relationship Specialty Start Date End Date Caitlyn Bowie MD [facility] 1 [place] [address] PCP - General Internal Medicine 05/06/21 Henry Kelly MD Pulmonary Department 175 [facility], [address] [place] [address] Physician Pulmonary Disease 09/06/17 06/22/20 documented as of this encounter
--- OUTSIDE RECORDS SUMMARY | 2025-04-22 21:21 | XMS_ITS | Encounter Summary ---
Author Organization [facility] and [facility] Address [address] [place] [address] Care Team Providers Care Supervisor Last Model Department Name Role Phone Caitlyn Bowie MD Primary Care Provider +1- [phone] Encounter Details Date Type Department Care Team (Late st Contact Info) Description 02/02/2018 Scanned Document [facility] Health Information Management [address] [place] [address] External, Provider Social History Tobacco Use Types [...] [facility] Building [address] [place], [place] [phone] Ronald Mills MD [address] [place] [address] [address] [place] [address] documented as of [...] as of this encounter Care Teams Supervisor Last Model Department Relationship Specialty Start Date End Date Caitlyn Bowie MD 3400 [facility] 1 [place] [address] PCP - General Internal Medicine 05/06/21 Henry Kelly MD Pulmonary Department 175 [facility], [address] [place] [address] Physician Pulmonary Disease 09/06/17 06/22/20 documented as of this encounter
--- OUTSIDE RECORDS SUMMARY | 2025-04-22 21:21 | XMS_ITS | Encounter Summary ---
Author Organization [facility] and [facility] Address [address] [place] [address] Care Team Providers Care Planner Scheduler Name Role Phone Caitlyn Bowie MD Primary Care Provider +1- [phone] Encounter Details Date Type Department Care Team (Late st Contact Info) Description 06/17/2016 Scanned Document [facility] Health Information Management [address] [place] [address] External, Provider Social History Tobacco Use Types [...] [facility] Building [address] [place], [place] [phone] Ronald Mills MD 240 [facility] A1 [place] [address] documented as of this encounter Visit Diagnoses Not on filedocumented in this encounter Additional Health Concerns Infection Onset Date Last Indicated Resolved Time COVID-19 03/05/2022 03/05/2022 03/15/2022 7:18 PM EDT documented as of this encounter Care Teams Planner Scheduler Relationship Specialty Start Date End Date Caitlyn Bowie MD 3400 [facility] 1 [place] [address] PCP - General Internal Medicine 05/06/21 Henry Kelly MD Pulmonary Department 175 [facility], [address] [place] [address] Physician Pulmonary Disease 09/06/17 06/22/20 documented as of this encounter
--- OUTSIDE RECORDS SUMMARY | 2025-04-22 21:21 | XMS_ITS | Encounter Summary ---
Author Organization [facility] Address [address] [place] [address] Care Team Providers Care Community Support Professional Name Role Phone Caitlyn Bowie MD Primary Care Provider +1- [phone] Encounter Details Date Type Department Care Team (Late st Contact Info) Description 04/23/2024 Scanned Document INTERFACE DEFAULT [address] [place] [address] System, Provider Not In Social History Tobacco [...] at [facility] 240 [facility] Building [address] [place], [place] [phone] Ronald Mills MD [address] [place] [address] [address] [place] [address] documented as of this encounter [...] as of this encounter Care Teams Community Support Professional Relationship Specialty Start Date End Date Caitlyn Bowie MD [address] [address] PCP - General Internal Medicine 05/06/21 documented as of this encounter
--- OUTSIDE RECORDS SUMMARY | 2025-04-22 21:21 | XMS_ITS | Encounter Summary ---
Author Organization [facility] and [facility] Address [address] [place] [address] Care Team Providers Care Intermediate Teacher Name Role Phone Caitlyn Bowie MD Primary Care Provider +1- [phone] Encounter Details Date Type Department Care Team (Late st Contact Info) Description 06/17/2016 Scanned Document [facility] Health Information Management [address] [place] [address] External, Provider Social History Tobacco Use Types [...] Cancer Center at [facility] 240 [facility] Building [address] [place], [place] [phone] Ronald Mills MD 240 [facility] A1 [place] [address] documented as of this encounter Visit Diagnoses Not on filedocumented in this encounter Additional Health Concerns Infection Onset Date Last Indicated Resolved Time COVID-19 03/05/2022 03/05/2022 03/15/2022 7:18 PM EDT documented as of this encounter Care Teams Intermediate Teacher Relationship Specialty Start Date End Date Caitlyn Bowie MD 3400 [facility] 1 [place] [address] PCP - General Internal Medicine 05/06/21 Henry Kelly MD Pulmonary Department 175 [facility], [address] [place] [address] Physician Pulmonary Disease 09/06/17 06/22/20 documented as of this encounter
--- OUTSIDE RECORDS SUMMARY | 2025-04-22 21:21 | XMS_ITS | Encounter Summary ---
Author Organization [facility] and [facility] Address [address] [place] [address] Care Team Providers Care Drapery Counselor Name Role Phone Caitlyn Bowie MD Primary Care Provider +1- [phone] Reason for Visit * Reason Comments Other Encounter Details Date Type Department Care Team (Late st Contact Info) Description 01/12/2021 Telephone [facility] at [address] - [address] [phone] Ronald Mills MD [address] [place] [address] Other Social History Tobacco Use Types [...] EDT Lab orders were faxed to [facility] @ [phone]. Patient notified by phone. * Telephone Encounter - Kathleen Nasima - 01/12/2021 8:46 AM EDT Pt called looking to speak with Kirstin RE: lab orders sent to lab [facility] lab Looking to have labs sent there A.S.A.P at some point today She is scheduled with Dr. Mills on January 28 documented in this encounter Plan of Treatment Upcoming Encounters Date Type Department Care Team (Late st Contact Info) Description 04/25/2025 4:00 PM EDT Telemedicine [facility] 240 [facility] Building [address] [place], [place] [phone] Ronald Mills MD 240 [facility] [address] [place] [address] documented as of this encounter Visit Diagnoses Not on filedocumented in this encounter Additional Health Concerns Infection Onset Date Last Indicated Resolved Time COVID-19 03/05/2022 03/05/2022 03/15/2022 7:18 PM EDT Assessment Noted Time PHQ-9 Depression Total Score: 2 11/07/19 19 2:06 PM EDT documented as of this encounter Care Teams Drapery Counselor Relationship Specialty Start Date End Date Caitlyn Bowie MD [address] [address] PCP - General Internal Medicine 05/06/21 documented as of this encounter
--- OUTSIDE RECORDS SUMMARY | 2025-04-22 21:21 | XMS_ITS | Encounter Summary ---
Author Organization [facility] and [facility] Address [address] [place] [address] Care Team Providers Care Technical Programs Manager Name Role Phone Caitlyn Bowie MD Primary Care Provider +1- [phone] Encounter Details Date Type Department Care Team (Late st Contact Info) Description 12/04/2014 Scanned Document [facility] Health Information Management [address] [place] [address] External, Provider Social History Tobacco Use Types [...] at [facility] 240 [facility] Building [address] [place], [place] [phone] Ronald Mills MD 240 [facility] [address] [place] [address] documented as of this encounter Procedures Procedure Name Priority Date/Time Associated Diagnosis Comments LAB SCAN Routine 12/04/2014 documented in this encounter Results * Lab Scan (12/04/2014) Blood specimen (specimen) us Provider External LAB BLOOD ORDERABLES Final Res ult [facility] documented in this encounter Visit Diagnoses Not on filedocumented in this encounter Additional Health Concerns Infection Onset Date Last Indicated Resolved Time COVID-19 03/05/2022 03/05/2022 03/15/2022 7:18 PM EDT documented as of this encounter Care Teams Technical Programs Manager Relationship Specialty Start Date End Date Caitlyn Bowie MD 3400 [facility] 1 [place] [address] PCP - General Internal Medicine 05/06/21 Henry Kelly MD Pulmonary Department 175 [facility], [address] [place] [address] Physician Pulmonary Disease 09/06/17 06/22/20 documented as of this encounter
--- OUTSIDE RECORDS SUMMARY | 2025-04-22 21:21 | XMS_ITS | Encounter Summary ---
Author Organization [facility] and [facility] Address 20 [place] [address] Care Team Providers Care Dimpling Machine Operator Name Role Phone Caitlyn Bowie MD Primary Care Provider +1- [phone] Encounter Details Date Type Department Care Team (Late st Contact Info) Description 07/27/2016 Scanned Document Thoracic Oncology Program at [address] [address] Suzy Kong MD [address] [place] [phone] Social History Tobacco Use Types Packs/Day [...] PM EDT Telemedicine Cancer Center at [address] [place], [place] [phone] Ronald Mills MD 240 [facility] Max [address] [place] [address] documented as of this encounter Visit Diagnoses Not on filedocumented in this encounter Additional Health Concerns Infection Onset Date Last Indicated Resolved Time COVID-19 03/05/2022 03/05/2022 03/15/2022 7:18 PM EDT documented as of this encounter Care Teams Dimpling Machine Operator Relationship Specialty Start Date End Date Caitlyn Bowie MD [address] [facility] Max 1 [place] [address] PCP - General Internal Medicine 05/06/21 Henry Kelly MD Pulmonary Department 175 [facility], [address] [place] [address] Physician Pulmonary Disease 09/06/17 06/22/20 documented as of this encounter
--- OUTSIDE RECORDS SUMMARY | 2025-04-22 21:21 | XMS_ITS | Encounter Summary ---
Author Organization [facility] and [facility] Address [address] [place] [address] Care Team Providers Care Timber Sprinkler Name Role Phone Caitlyn Bowie MD Primary Care Provider +1- [phone] Encounter Details Date Type Department Care Team (Late st Contact Info) Description 01/28/2018 Scanned Document [facility] Health Information Management [address] [place] [address] External, Provider Social History Tobacco Use Types [...] [facility] 240 [facility] Building [address] [place], [place] [phone] Ronald Mills MD 240 [facility] A1 [place] [address] documented as of this encounter Visit Diagnoses Not on filedocumented in this encounter Additional Health Concerns Infection Onset Date Last Indicated Resolved Time COVID-19 03/05/2022 03/05/2022 03/15/2022 7:18 PM EDT documented as of this encounter Care Teams Timber Sprinkler Relationship Specialty Start Date End Date Caitlyn Bowie MD 3400 [facility] 1 [place] [address] PCP - General Internal Medicine 05/06/21 Henry Kelly MD Pulmonary Department 175 [facility], [address] [place] [address] Physician Pulmonary Disease 09/06/17 06/22/20 documented as of this encounter
--- OUTSIDE RECORDS SUMMARY | 2025-04-22 21:21 | XMS_ITS | Encounter Summary ---
Author Organization [facility] Address [address] [place] [address] Care Team Providers Care Garbage Truck Driver Name Role Phone Caitlyn Bowie MD Primary Care Provider +1- [phone] Encounter Details Date Type Department Care Team (Late st Contact Info) Description 02/19/2015 Scanned Document [facility] Health Information Management [address] [place] [address] External, Provider Social History Tobacco Use Types [...] [facility] 240 [facility] Building [address] [place], [place] [phone] Ronald Mills MD 240 [facility] [address] [place] [address] documented as of this encounter Procedures Procedure Name Priority Date/Time Associated Diagnosis Comments LAB SCAN Routine 02/19/2015 documented in this encounter Results * Lab Scan (02/19/2015) Blood specimen (specimen) us Provider External LAB BLOOD ORDERABLES Final Res ult [facility] documented in this encounter Visit Diagnoses Not on filedocumented in this encounter Additional Health Concerns Infection Onset Date Last Indicated Resolved Time COVID-19 03/05/2022 03/05/2022 03/15/2022 7:18 PM EDT documented as of this encounter Care Teams Garbage Truck Driver Relationship Specialty Start Date End Date Caitlyn Bowie MD 3400 [facility] 1 [place] [address] PCP - General Internal Medicine 05/06/21 Henry Kelly MD Pulmonary Department 175 [facility], [address] [place] [address] Physician Pulmonary Disease 09/06/17 06/22/20 documented as of this encounter
--- OUTSIDE RECORDS SUMMARY | 2025-04-22 21:21 | XMS_ITS | Encounter Summary ---
Author Organization [facility] and [facility] Address [address] [place] [address] Care Team Providers Care Manager Content Name Role Phone Caitlyn Bowie MD Primary Care Provider +1- [phone] Encounter Details Date Type Department Care Team (Late st Contact Info) Description 11/07/2014 Scanned Document [facility] Health Information Management [address] [place] [address] External, Provider Social History Tobacco Use Types [...] [facility] Building [address] [place], [place] [phone] Ronald Mills MD 240 [facility] [address]1 [place] [address] documented as of this encounter Visit Diagnoses Not on filedocumented in this encounter Additional Health Concerns Infection Onset Date Last Indicated Resolved Time COVID-19 03/05/2022 03/05/2022 03/15/2022 7:18 PM EDT documented as of this encounter Care Teams Manager Content Relationship Specialty Start Date End Date Caitlyn Bowie MD 3400 [facility] 1 [place] [address] PCP - General Internal Medicine 05/06/21 Henry Kelly MD Pulmonary Department 175 [facility], [address] [place] [address] Physician Pulmonary Disease 09/06/17 06/22/20 documented as of this encounter
--- OUTSIDE RECORDS SUMMARY | 2025-04-22 21:21 | XMS_ITS | Encounter Summary ---
Author Organization [facility] and [facility] Address [address] [place] [address] Care Team Providers Care Brokerage Branch Manager Name Role Phone Caitlyn Bowie MD Primary Care Provider +1- [phone] Encounter Details Date Type Department Care Team (Late st Contact Info) Description 07/08/2016 Scanned Document [facility] Health Information Management [address] [place] [address] External, Provider Social History Tobacco Use Types [...] [facility] 240 [facility] Building [address] [place], [place] [phone] Ronald Mills MD 240 [facility] Max [address] [place] [address] documented as of this encounter Procedures Procedure Name Priority Date/Time Associated Diagnosis Comments LAB SCAN Routine 07/08/2016 documented in this encounter Results * Lab Scan (07/08/2016) Blood specimen (specimen) us Provider External LAB BLOOD ORDERABLES Final Res ult [facility] documented in this encounter Visit Diagnoses Not on filedocumented in this encounter Additional Health Concerns Infection Onset Date Last Indicated Resolved Time COVID-19 03/05/2022 03/05/2022 03/15/2022 7:18 PM EDT documented as of this encounter Care Teams Brokerage Branch Manager Relationship Specialty Start Date End Date Caitlyn Bowie MD 3400 [facility] 1 [place] [address] PCP - General Internal Medicine 05/06/21 Henry Kelly MD Pulmonary Department 175 [facility], [address] [place] [address] Physician Pulmonary Disease 09/06/17 06/22/20 documented as of this encounter
--- OUTSIDE RECORDS SUMMARY | 2025-04-22 21:21 | XMS_ITS | Encounter Summary ---
Author Organization [facility] and [facility] Address [address] [place] [address] Care Team Providers Care Senior Health Educator Name Role Phone Caitlyn Bowie MD Primary Care Provider +1- [phone] Encounter Details Date Type Department Care Team (Late st Contact Info) Description 02/02/2018 Scanned Document [facility] Health Information Management [address] [place] [address] External, Provider Social History Tobacco Use Types [...] [facility] [address] [facility] [address] [place], [place] [phone] Ronald Mills MD 240 [facility] [address] [place] [address] documented as of this encounter Visit Diagnoses Not on filedocumented in this encounter Additional Health Concerns Infection Onset Date Last Indicated Resolved Time COVID-19 03/05/2022 03/05/2022 03/15/2022 7:18 PM EDT documented as of this encounter Care Teams Senior Health Educator Relationship Specialty Start Date End Date Caitlyn Bowie MD [address] [facility] 1 [place] [address] PCP - General Internal Medicine 05/06/21 Henry Kelly MD Pulmonary Department 175 [facility], [address] [place] [address] Physician Pulmonary Disease 09/06/17 06/22/20 documented as of this encounter
--- OUTSIDE RECORDS SUMMARY | 2025-04-22 21:21 | XMS_ITS | Encounter Summary ---
Author Organization [facility] and [facility] Address [address] [place] [address] Care Team Providers Care Blending Tank Tender Helper Name Role Phone Caitlyn Bowie MD Primary Care Provider +1- [phone] Encounter Details Date Type Department Care Team (Late st Contact Info) Description 04/04/2016 Scanned Document [facility] Health Information Management [address] [place] [address] External, Provider Social History Tobacco Use Types [...] [facility] [address] [facility] [address] [place], [place] [phone] Ronald Mills MD 240 [facility] [address] [place] [address] documented as of this encounter Procedures Procedure Name Priority Date/Time Associated Diagnosis Comments LAB SCAN Routine 04/04/2016 documented in this encounter Results * Lab Scan (04/04/2016) Blood specimen (specimen) us Provider External LAB BLOOD ORDERABLES Final Res ult [facility] documented in this encounter Visit Diagnoses Not on filedocumented in this encounter Additional Health Concerns Infection Onset Date Last Indicated Resolved Time COVID-19 03/05/2022 03/05/2022 03/15/2022 7:18 PM EDT documented as of this encounter Care Teams Blending Tank Tender Helper Relationship Specialty Start Date End Date Caitlyn Bowie MD 3400 [facility] 1 [place] [address] PCP - General Internal Medicine 05/06/21 eHnry Kelly MD Pulmonary Department 175 [facility], [address] [place] [address] Physician Pulmonary Disease 09/06/17 06/22/20 documented as of this encounter
--- OUTSIDE RECORDS SUMMARY | 2025-04-22 21:21 | XMS_ITS | Encounter Summary ---
Author Organization [facility] and [facility] Address [address] [place] [address] Care Team Providers Care Scientist Electronics Name Role Phone Caitlyn Bowie MD Primary Care Provider +1- [phone] Encounter Details Date Type Department Care Team (Late st Contact Info) Description 01/13/2021 Scanned Document [facility] at [address] [address] External, Provider Social History Tobacco Use Types [...] [facility] 240 [facility] [address] [place], [place] [phone] Ronald Mills MD [address] [place] [address] [address] [place] [address] documented as of this encounter [...] documented as of this encounter Care Teams Scientist Electronics Relationship Specialty Start Date End Date Caitlyn Bowie MD [address] [address] PCP - General Internal Medicine 05/06/21 documented as of this encounter
--- OUTSIDE RECORDS SUMMARY | 2025-04-22 21:21 | XMS_ITS | Encounter Summary ---
Author Organization [facility] and [facility] Address [address] [place] [address] Care Team Providers Care Interpreter For The Deaf Name Role Phone Caitlyn Bowie MD Primary Care Provider +1- [phone] Encounter Details Date Type Department Care Team (Late st Contact Info) Description 06/17/2016 Scanned Document [facility] Health Information Management [address] [place] [address] External, Provider Social History Tobacco Use Types [...] [facility] 240 [facility] Building [address] [place], [place] [id number] Ronald Mills MD 240 [facility] [address] [place] [address] documented as of this encounter Procedures Procedure Name Priority Date/Time Associated Diagnosis Comments XRAY RESULT SCAN Routine 06/17/2016 documented in this encounter Results * Xray Result Scan (06/17/2016) us Provider External IMG SCAN REPORTS Final Result [facility] [place], [place], [facility] documented in this encounter Visit Diagnoses Not on filedocumented in this encounter Additional Health Concerns Infection Onset Date Last Indicated Resolved Time COVID-19 03/05/2022 03/05/2022 03/15/2022 7:18 PM EDT documented as of this encounter Care Teams Interpreter For The Deaf Relationship Specialty Start Date End Date Caitlyn Bowie MD [address] [facility] 1 [place] [address] PCP - General Internal Medicine 05/06/21 Henry Kelly MD Pulmonary Department [address] [place] [address], [address] [place] [address] Physician Pulmonary Disease 09/06/17 06/22/20 documented as of this encounter
--- OUTSIDE RECORDS SUMMARY | 2025-04-22 21:21 | XMS_ITS | Encounter Summary ---
Author Organization [facility] and [facility] Address [address] [place] [address] Care Team Providers Care Call Center Support Representative Name Role Phone Caitlyn Bowie MD Primary Care Provider +1- [phone] Encounter Details Date Type Department Care Team (Late st Contact Info) Description 01/27/2018 Scanned Document [facility] Health Information Management [address] [place] [address] External, Provider Social History Tobacco Use Types [...] [facility] 240 [facility] Building [address] [place], [place] [phone] Ronald Mills MD 240 [facility] A1 [place] [address] documented as of this encounter Visit Diagnoses Not on filedocumented in this encounter Additional Health Concerns Infection Onset Date Last Indicated Resolved Time COVID-19 03/05/2022 03/05/2022 03/15/2022 7:18 PM EDT documented as of this encounter Care Teams Call Center Support Representative Relationship Specialty Start Date End Date Caitlyn Bowie MD [address] [facility] 1 [place] [address] PCP - General Internal Medicine 05/06/21 Henry Kelly MD Pulmonary Department 175 [facility], [address] [place] [address] Physician Pulmonary Disease 09/06/17 06/22/20 documented as of this encounter
--- OUTSIDE RECORDS SUMMARY | 2025-04-22 21:21 | XMS_ITS | Encounter Summary ---
Author Organization [facility] and [facility] Address [address] [place] [address] Care Team Providers Care Cook Morning Name Role Phone Caitlyn Bowie MD Primary Care Provider +1- [phone] Encounter Details Date Type Department Care Team (Late st Contact Info) Description 04/28/2015 Scanned Document [facility] Health Information Management [address] [place] [address] External, Provider Social History Tobacco Use Types [...] [facility] 240 [facility] Building [address] [place], [place] [id number] Ronald Mills MD 240 [facility] A1 [place] [address] documented as of this encounter Visit Diagnoses Not on filedocumented in this encounter Additional Health Concerns Infection Onset Date Last Indicated Resolved Time COVID-19 03/05/2022 03/05/2022 03/15/2022 7:18 PM EDT documented as of this encounter Care Teams Cook Morning Relationship Specialty Start Date End Date Caitlyn Bowie MD 3400 [facility] 1 [place] [address] PCP - General Internal Medicine 05/06/21 Henry Kelly MD Pulmonary Department 175 [facility], [address] [place] [address] Physician Pulmonary Disease 09/06/17 06/22/20 documented as of this encounter
--- OUTSIDE RECORDS SUMMARY | 2025-04-22 21:21 | XMS_ITS | Encounter Summary ---
Author Organization [facility] and [facility] Address [address] [place] [address] Care Team Providers Care Vacuum Drum Drier Operator Name Role Phone Caitlyn Bowie MD Primary Care Provider +1- [phone] Encounter Details Date Type Department Care Team (Late st Contact Info) Description 03/13/2015 Scanned Document [facility] Health Information Management [address] [place] [address] External, Provider Social History Tobacco Use Types [...] at [facility] 240 [facility] Building [address] [place], [place] [phone] Ronald Mills MD 240 [facility] Max [address] [place] [address] documented as of this encounter Procedures Procedure Name Priority Date/Time Associated Diagnosis Comments LAB SCAN Routine 02/16/2015 LAB SCAN Routine 02/16/2015 documented in this encounter Results * Lab Scan (02/16/2015) Blood specimen (specimen) us Provider External LAB BLOOD ORDERABLES Final Res ult Performing Organization Address [facility]/ZIP Co de Phone Number [facility] * Lab Scan (02/16/2015) Blood specimen (specimen) Provider External LAB BLOOD ORDERABLES Final Res ult Performing Organization Address [facility] Co de Phone Number [facility] documented in this encounter Visit Diagnoses Not on filedocumented in this encounter Additional Health Concerns Infection Onset Date Last Indicated Resolved Time COVID-19 03/05/2022 03/05/2022 03/15/2022 7:18 PM EDT documented as of this encounter Care Teams Vacuum Drum Drier Operator Relationship Specialty Start Date End Date Caitlyn Bowie MD 3400 [facility] 1 [place] [address] PCP - General Internal Medicine 05/06/21 Henry Kelly MD Pulmonary Department 175 [facility], [address] [place] [address] Physician Pulmonary Disease 09/06/17 06/22/20 documented as of this encounter
--- OUTSIDE RECORDS SUMMARY | 2025-04-22 21:21 | XMS_ITS | Encounter Summary ---
Author Organization [facility] and [facility] Address [address] [place] [address] Care Team Providers Care Staff Mechanical Engineer Name Role Phone Caitlyn Bowie MD Primary Care Provider +1- [phone] Encounter Details Date Type Department Care Team (Late st Contact Info) Description 01/26/2018 Scanned Document [facility] Health Information Management [address] [place] [address] External, Provider Social History Tobacco Use Types [...] [facility] 240 [facility] Building [address] [place] [address] Ronald Mills MD [address] [place] [address] [address] [place] [address] documented as of this encounter [...] as of this encounter Care Teams Staff Mechanical Engineer Relationship Specialty Start Date End Date Caitlyn Bowie MD 3400 [facility] 1 [place] [address] PCP - General Internal Medicine 05/06/21 Henry Kelly MD Pulmonary Department [address] [place] [address], [address] [place] [address] Physician Pulmonary Disease 09/06/17 06/22/20 documented as of this encounter
--- OUTSIDE RECORDS SUMMARY | 2025-04-22 21:21 | XMS_ITS | Encounter Summary ---
Author Organization [facility] and [facility] Address [address] [place] [address] Care Team Providers Care Manager Sales Training Name Role Phone Caitlyn Bowie MD Primary Care Provider +1- [phone] Encounter Details Date Type Department Care Team (Late st Contact Info) Description 04/28/2015 Scanned Document [facility] Health Information Management [address] [place] [address] External, Provider Social History Tobacco Use Types [...] [facility] Building [address] [place], [place] [id number] Ronald Mills MD 240 [facility] Max [address] [place] [address] documented as of this encounter Procedures Procedure Name Priority Date/Time Associated Diagnosis Comments LAB SCAN Routine 04/28/2015 documented in this encounter Results * Lab Scan (04/28/2015) Blood specimen (specimen) us Provider External LAB BLOOD ORDERABLES Edited Re sult - Final [facility] documented in this encounter Visit Diagnoses Not on filedocumented in this encounter Additional Health Concerns Infection Onset Date Last Indicated Resolved Time COVID-19 03/05/2022 03/05/2022 03/15/2022 7:18 PM EDT documented as of this encounter Care Teams Manager Sales Training Relationship Specialty Start Date End Date Caitlyn Bowie MD 3400 [facility] 1 [place] [address] PCP - General Internal Medicine 05/06/21 Henry Kelly MD Pulmonary Department 175 [facility], [address] [place] [address] Physician Pulmonary Disease 09/06/17 06/22/20 documented as of this encounter
--- OUTSIDE RECORDS SUMMARY | 2025-04-22 21:21 | XMS_ITS | Encounter Summary ---
Author Organization [facility] and [facility] Address [address] [place] [address] Care Team Providers Care Flatbed Driver Name Role Phone Caitlyn Bowie MD Primary Care Provider +1- [phone] Encounter Details Date Type Department Care Team (Late st Contact Info) Description 05/14/2015 Scanned Document [facility] Health Information Management [address] [place] [address] External, Provider Social History Tobacco Use Types [...] at [facility] 240 [facility] Building [address] [place], [place] [phone] Ronald Mills MD 240 [facility] A1 [place] [address] documented as of this encounter Visit Diagnoses Not on filedocumented in this encounter Additional Health Concerns Infection Onset Date Last Indicated Resolved Time COVID-19 03/05/2022 03/05/2022 03/15/2022 7:18 PM EDT documented as of this encounter Care Teams Flatbed Driver Relationship Specialty Start Date End Date Caitlyn Bowie MD 3400 [facility] 1 [place] [address] PCP - General Internal Medicine 05/06/21 Henry Kelly MD Pulmonary Department 175 [facility], [address] [place] [address] Physician Pulmonary Disease 09/06/17 06/22/20 documented as of this encounter
--- OUTSIDE RECORDS SUMMARY | 2025-04-22 21:21 | XMS_ITS | Encounter Summary ---
Author Organization [facility] and [facility] Address [address] [place] [address] Care Team Providers Care Business System Manager Name Role Phone Caitlyn Bowie MD Primary Care Provider +1- [phone] Encounter Details Date Type Department Care Team (Late st Contact Info) Description 01/30/2018 Scanned Document [facility] Health Information Management [address] [place] [address] External, Provider Social History Tobacco Use Types [...] [facility] [address] [facility] Building [address] [place] [address] Ronald Mills MD [address] [place] [address] [address] [place] [address] documented as of this encounter [...] as of this encounter Care Teams Business System Manager Relationship Specialty Start Date End Date Caitlyn Bowie MD [facility]0 [facility] 1 [place] [address] PCP - General Internal Medicine 05/06/21 Henry Kelly MD Pulmonary Department 175 [facility], [address] [place] [address] Physician Pulmonary Disease 09/06/17 06/22/20 documented as of this encounter
--- OUTSIDE RECORDS SUMMARY | 2025-04-22 21:21 | XMS_ITS | Encounter Summary ---
Author Organization [facility] and [facility] Address [address] [place] [address] Care Team Providers Care Box Strapper Name Role Phone Caitlyn Bowie MD Primary Care Provider +1- [phone] Encounter Details Date Type Department Care Team (Late st Contact Info) Description 01/26/2018 Scanned Document [facility] Health Information Management [address] [place] [address] External, Provider Social History Tobacco Use Types [...] [facility] Building [address] [place], [place] [address] Ronald Mills MD [address] [place] [address] [address] [place] [address] documented as of [...] as of this encounter Care Teams Box Strapper Relationship Specialty Start Date End Date Caitlyn Bowie MD 3400 [facility] 1 [place] [address] PCP - General Internal Medicine 05/06/21 Henry Kelly MD Pulmonary Department 175 [place] [facility], [address] [place] [address] Physician Pulmonary Disease 09/06/17 06/22/20 documented as of this encounter
--- OUTSIDE RECORDS SUMMARY | 2025-04-22 21:21 | XMS_ITS | Encounter Summary ---
Author Organization [facility] Address [address] [place] [address] Care Team Providers Care Tailer Out Name Role Phone Caitlyn Bowie MD Primary Care Provider +1- [phone] Encounter Details Date Type Department Care Team (Late st Contact Info) Description 07/31/2015 Scanned Document [facility] Health Information Management [address] [place] [address] External, Provider Social History Tobacco Use Types [...] [facility] 240 [facility] Building [address] [place], [place] [phone] Ronald Mills MD 240 [facility] Max [address]1 [place] [address] documented as of this encounter Procedures Procedure Name Priority Date/Time Associated Diagnosis Comments NUC MED/PET RESULT SCAN Routine 07/31/2015 documented in this encounter Results * Nuc Med/PET Result Scan (07/31/2015) us Provider External IMG SCAN REPORTS Edited Result - Final [facility] [place], [place], [facility] documented in this encounter Visit Diagnoses Not on filedocumented in this encounter Additional Health Concerns Infection Onset Date Last Indicated Resolved Time COVID-19 03/05/2022 03/05/2022 03/15/2022 7:1 8 PM EDT documented as of this encounter Care Teams Tailer Out Relationship Specialty Start Date End Date Caitlyn Bowie MD 3400 [facility] 1 [place] [address] PCP - General Internal Medicine 05/06/21 Henry Kelly MD Pulmonary Department 175 [facility], [address] [place] [address] Physician Pulmonary Disease 09/06/17 06/22/20 documented as of this encounter
--- OUTSIDE RECORDS SUMMARY | 2025-04-22 21:21 | XMS_ITS | Encounter Summary ---
Author Organization [facility] and [facility] Address [address] [place] [address] Care Team Providers Care Economics Department Chair Name Role Phone Caitlyn Bowie MD Primary Care Provider +1- [phone] Encounter Details Date Type Department Care Team (Late st Contact Info) Description 09/23/2024 Scanned Document INTERFACE DEFAULT [address] [place] [address] System, Provider Not In Social History Tobacco [...] at [facility] 240 [facility] Building [address] [place], [place] [address] Ronald Mills MD [address] [place] [address] [address] [place] [address] documented as of [...] as of this encounter Care Teams Economics Department Chair Relationship Specialty Start Date End Date Caitlyn Bowie MD [address] [address] PCP - General Internal Medicine 05/06/21 documented as of this encounter
--- OUTSIDE RECORDS SUMMARY | 2025-04-22 21:21 | XMS_ITS | Encounter Summary ---
Author Organization [facility] and [facility] Address [address] [place] [address] Care Team Providers Care Production Quality Manager Name Role Phone Caitlyn Bowie MD Primary Care Provider +1- [phone] Encounter Details Date Type Department Care Team (Late st Contact Info) Description 02/01/2018 Scanned Document [facility] Health Information Management [address] [place] [address] External, Provider Social History Tobacco Use Types [...] [facility] 240 [facility] Building [address] [place], [place] [address] Ronald Mills MD [address] [place] [address] [address] [place] [address] documented as of this encounter [...] Bowie MD 3400 [facility] 1 [place] [address] PCP - General Internal Medicine 05/06/21 Henry Kelly MD Pulmonary Department 175 [facility], [address] [place] [address] Physician Pulmonary Disease 09/06/17 06/22/20 documented as of this encounter
--- OUTSIDE RECORDS SUMMARY | 2025-04-22 21:21 | XMS_ITS | Encounter Summary ---
Author Organization [facility] and [facility] Address [address] [place] [address] Care Team Providers Care Granite Installer Name Role Phone Caitlyn Bowie MD Primary Care Provider +1- [phone] Encounter Details Date Type Department Care Team (Late st Contact Info) Description 03/11/2015 Scanned Document [facility] Health Information Management [address] [place] [address] External, Provider Social History Tobacco Use Types [...] [facility] 240 [facility] Building [address] [place], [place] [phone] Ronald Mills MD 240 [facility] Max [address] [place] [address] documented as of this encounter Procedures Procedure Name Priority Date/Time Associated Diagnosis Comments LAB SCAN Routine 03/11/2015 documented in this encounter Results * Lab Scan (03/11/2015) Blood specimen (specimen) us Provider External LAB BLOOD ORDERABLES Edited Re sult - Final [facility] documented in this encounter Visit Diagnoses Not on filedocumented in this encounter Additional Health Concerns Infection Onset Date Last Indicated Resolved Time COVID-19 03/05/2022 03/05/2022 03/15/2022 7:18 PM EDT documented as of this encounter Care Teams Granite Installer Relationship Specialty Start Date End Date Caitlyn Bowie MD 3400 [facility] 1 [place] [address] PCP - General Internal Medicine 05/06/21 Henry Kelly MD Pulmonary Department 175 [facility], [address] [place] [address] Physician Pulmonary Disease 09/06/17 06/22/20 documented as of this encounter
--- OUTSIDE RECORDS SUMMARY | 2025-04-22 21:21 | XMS_ITS | Encounter Summary ---
Author Organization [facility] and [facility] Address [address] [place] [address] Care Team Providers Care Systems Manager Name Role Phone Caitlyn Bowie MD Primary Care Provider +1- [phone] Encounter Details Date Type Department Care Team (Late st Contact Info) Description 04/08/2024 Scanned Document INTERFACE DEFAULT [address] [place] [address] System, Provider Not In Social History Tobacco [...] [facility] 240 [facility] Building [address] [place], [place] [id number] Ronald Mills MD [address] [place] [address] [address] [place] [address] documented as of [...] as of this encounter Care Teams Systems Manager Relationship Specialty Start Date End Date Caitlyn Bowie MD [address] [address] PCP - General Internal Medicine 05/06/21 documented as of this encounter
--- OUTSIDE RECORDS SUMMARY | 2025-04-22 21:21 | XMS_ITS | Encounter Summary ---
Author Organization [facility] and [facility] Address [address] [place] [address] Care Team Providers Care Linux Unix System Administrator Name Role Phone Caitlyn Bowie MD Primary Care Provider +1- [phone] Encounter Details Date Type Department Care Team (Late st Contact Info) Description 09/09/2024 Scanned Document INTERFACE DEFAULT [address] [place] [address] System, Provider Not In Social History Tobacco [...] at [facility] 240 [facility] Building [address] [place], [place] [id number] Ronald Mills MD [address] [place] [address] [address] [place] [address] documented as of this encounter [...] End Date Caitlyn Bowie MD [address] [address] PCP - General Internal Medicine 05/06/21 documented as of this encounter
--- OUTSIDE RECORDS SUMMARY | 2025-04-22 21:21 | XMS_ITS | Encounter Summary ---
Author Organization [facility] and [facility] Address [address] [place] [address] Care Team Providers Care Cyber Incident Responder Name Role Phone Caitlyn Bowie MD Primary Care Provider +1- [phone] Encounter Details Date Type Department Care Team (Late st Contact Info) Description 09/15/2024 Scanned Document INTERFACE DEFAULT [address] [place] [address] System, Provider Not In Social History Tobacco [...] [facility] 240 [facility] Building [address] [place], [place] [id number] Ronald Mills MD [address] [place] [address] [address] [place] [address] documented as of this encounter [...] as of this encounter Care Teams Cyber Incident Responder Relationship Specialty Start Date End Date Cailtyn Bowie MD [address] [address] PCP - General Internal Medicine 05/06/21 documented as of this encounter
--- OUTSIDE RECORDS SUMMARY | 2025-04-22 21:21 | XMS_ITS | Encounter Summary ---
Author Organization [facility] and [facility] Address [address] [place] [phone] Care Team Providers Care Manager Proposal Name Role Phone Caitlyn Bowie MD Primary Care Provider +1- [phone] Encounter Details Date Type Department Care Team (Late st Contact Info) Description 06/25/2015 Scanned Document [facility] Health Information Management [address] [place] [address] External, Provider Social History Tobacco Use Types [...] [facility] Building [address] [place], [place] [id number] Ronald Mills MD 240 [facility] A1 [place] [address] documented as of this encounter Visit Diagnoses Not on filedocumented in this encounter Additional Health Concerns Infection Onset Date Last Indicated Resolved Time COVID-19 03/05/2022 03/05/2022 03/15/2022 7:18 PM EDT documented as of this encounter Care Teams Manager Proposal Relationship Specialty Start Date End Date Caitlyn Bowie MD 3400 [facility] 1 [place] [address] PCP - General Internal Medicine 05/06/21 Henry Kelly MD Pulmonary Department 175 [facility], [address] [place] [address] Physician Pulmonary Disease 09/06/17 06/22/20 documented as of this encounter
--- OUTSIDE RECORDS SUMMARY | 2025-04-22 21:21 | XMS_ITS | Encounter Summary ---
Author Organization [facility] and [facility] Address [address] [place] [phone] Care Team Providers Care Plastic Molding Operator Name Role Phone Caitlyn Bowie MD Primary Care Provider +1- [phone] Encounter Details Date Type Department Care Team (Late st Contact Info) Description 05/01/2015 Scanned Document [facility] Health Information Management [address] [place] [address] External, Provider Social History Tobacco Use Types [...] Center at [facility] 240 [facility] Building [address] [place], [place] [address] Ronald Mills MD 240 [facility] [address] [place] [address] documented as of this encounter [...] as of this encounter Care Teams Plastic Molding Operator Relationship Specialty Start Date End Date Caitlyn Bowie MD 3400 [facility] Max 1 [place] [address] PCP - General Internal Medicine 05/06/21 Henry Kelly MD Pulmonary Department 175 [facility], [address] [place] [address] Physician Pulmonary Disease 09/06/17 06/22/20 documented as of this encounter
--- OUTSIDE RECORDS SUMMARY | 2025-04-22 21:21 | XMS_ITS | Encounter Summary ---
Author Organization [facility] and [facility] Address [address] [place] [address] Care Team Providers Care Street Car Inspector Name Role Phone Caitlyn Bowie MD Primary Care Provider +1- [phone] Encounter Details Date Type Department Care Team (Late st Contact Info) Description 11/09/2014 Scanned Document [facility] Health Information Management [address] [place] [address] External, Provider Social History Tobacco Use Types [...] [facility] 240 [facility] Building [address] [place], [place] [phone] Ronald Mills MD 240 [facility] A1 [place] [address] documented as of this encounter Visit Diagnoses Not on filedocumented in this encounter Additional Health Concerns Infection Onset Date Last Indicated Resolved Time COVID-19 03/05/2022 03/05/2022 03/15/2022 7:18 PM EDT documented as of this encounter Care Teams Street Car Inspector Relationship Specialty Start Date End Date Caitlyn Bowie MD 3400 [facility] 1 [place] [address] PCP - General Internal Medicine 05/06/21 Henry Kelly MD Pulmonary Department 175 [facility], [address] [place] [address] Physician Pulmonary Disease 09/06/17 06/22/20 documented as of this encounter
--- OUTSIDE RECORDS SUMMARY | 2025-04-22 21:21 | XMS_ITS | Encounter Summary ---
Author Organization [facility] and [facility] Address [address] [place] [address] Care Team Providers Care Household Chores Name Role Phone Caitlyn Bowie MD Primary Care Provider +1- [phone] Encounter Details Date Type Department Care Team (Late st Contact Info) Description 10/10/2016 Scanned Document [facility] Health Information Management [address] [place] [address] External, Provider Social History Tobacco Use Types [...] [facility] 240 [facility] Building [address] [place], [place] [phone] Ronald Mills MD 240 [facility] A1 [place] [address] documented as of this encounter Visit Diagnoses Not on filedocumented in this encounter Additional Health Concerns Infection Onset Date Last Indicated Resolved Time COVID-19 03/05/2022 03/05/2022 03/15/2022 7:18 PM EDT documented as of this encounter Care Teams Household Chores Relationship Specialty Start Date End Date Caitlyn Bowie MD 3400 [facility] 1 [place] [address] PCP - General Internal Medicine 05/06/21 Henry Kelly MD Pulmonary Department 175 [facility], [address] [place] [address] Physician Pulmonary Disease 09/06/17 06/22/20 documented as of this encounter
--- OUTSIDE RECORDS SUMMARY | 2025-04-22 21:21 | XMS_ITS | Encounter Summary ---
Author Organization [facility] and [facility] Address [address] [place] [address] Care Team Providers Care Publication Director Name Role Phone Caitlyn Bowie MD Primary Care Provider +1- [phone] Encounter Details Date Type Department Care Team (Late st Contact Info) Description 12/14/2016 Scanned Document [facility] Health Information Management [address] [place] [address] External, Provider Social History Tobacco Use Types [...] [facility] 240 [facility] Building [address] [place], [place] [phone] Ronald Mills MD 240 [facility] A1 [place] [address] documented as of this encounter Visit Diagnoses Not on filedocumented in this encounter Additional Health Concerns Infection Onset Date Last Indicated Resolved Time COVID-19 03/05/2022 03/05/2022 03/15/2022 7:18 PM EDT documented as of this encounter Care Teams Publication Director Relationship Specialty Start Date End Date Caitlyn Bowie MD 3400 [facility] 1 [place] [address] PCP - General Internal Medicine 05/06/21 Henry Kelly MD Pulmonary Department 175 [facility], [address] [place] [address] Physician Pulmonary Disease 09/06/17 06/22/20 documented as of this encounter
--- OUTSIDE RECORDS SUMMARY | 2025-04-22 21:21 | XMS_ITS | Encounter Summary ---
Author Organization [facility] and [facility] Address [address] [place] [address] Care Team Providers Care Finishing Room Supervisor Name Role Phone Caitlyn Bowie MD Primary Care Provider +1- [phone] Encounter Details Date Type Department Care Team (Late st Contact Info) Description 12/21/2020 Scanned Document INTERFACE DEFAULT [address] [place] [address] System, Provider Not In Social History Tobacco [...] [facility] Building [address] [place] [address] Ronald Mills MD [address] [place] [address] [address] [place] [address] documented as of this encounter Visit Diagnoses Not on filedocumented in this encounter Additional Health Concerns Infection Onset Date Last Indicated Resolved Time COVID-19 03/05/2022 03/05/2022 03/15/2022 7:18 PM EDT Assessment Noted Time PHQ-9 Depression Total Score: 2 11/07/19 19 2:06 PM EDT documented as of this encounter Care Teams Finishing Room Supervisor Relationship Specialty Start Date End Date Caitlyn Bowie MD [address] [address] PCP - General Internal Medicine 05/06/21 documented as of this encounter
--- OUTSIDE RECORDS SUMMARY | 2025-04-22 21:21 | XMS_ITS | Encounter Summary ---
Author Organization [facility] and [facility] Address [address] [place] [address] Care Team Providers Care Wood Mechanist Name Role Phone Caitlyn Bowie MD Primary Care Provider +1- [phone] Encounter Details Date Type Department Care Team (Late st Contact Info) Description 01/26/2018 Scanned Document [facility] Health Information Management [address] [place] [address] External, Provider Social History Tobacco Use Types [...] [facility] 240 [facility] Building [address] [place] [address] Ronald Mills MD 240 [facility] A1 [place] [address] documented as of this encounter [...] as of this encounter Care Teams Wood Mechanist Relationship Specialty Start Date End Date Caitlyn Bowie MD 3400 [facility] 1 [place] [address] PCP - General Internal Medicine 05/06/21 Henry Kelly MD Pulmonary Department 175 [facility], [address] [place] [address] Physician Pulmonary Disease 09/06/17 06/22/20 documented as of this encounter
--- OUTSIDE RECORDS SUMMARY | 2025-04-22 21:21 | XMS_ITS | Encounter Summary ---
Author Organization [facility] Address [address] [place] [address] Care Team Providers Care Hand Bulldozer Name Role Phone Caitlyn Bowie MD Primary Care Provider +1- [phone] Encounter Details Date Type Department Care Team (Late st Contact Info) Description 03/14/2025 Scanned Document [facility] Neurology Ophthalmology [address] [place] [phone] Shirley Chaidez PA-C [address] [address] Social History Tobacco Use Types Packs/Day Years [...] filedocumented in this encounter Care Teams Hand Bulldozer Relationship Specialty Start Date End Date Caitlyn Bowie MD 7240 [place] [address] PCP - General Internal Medicine 03/20/23 documented as of this encounter
--- OUTSIDE RECORDS SUMMARY | 2025-04-22 21:21 | XMS_ITS | Encounter Summary ---
Author Organization [facility] and [facility] Address [address] [place] [address] Care Team Providers Care Shear Tender Name Role Phone Caitlyn Bowie MD Primary Care Provider +1- [phone] Encounter Details Date Type Department Care Team (Late st Contact Info) Description 01/27/2018 Scanned Document [facility] Health Information Management [address] [address] External, Provider Social History Tobacco Use Types [...] [facility] 240 [facility] Building [address] [place] [address] Ronald Mills MD 240 [facility] A1 [place] [address] documented as of this encounter [...] as of this encounter Care Teams Shear Tender Relationship Specialty Start Date End Date Caitlyn Bowie MD 3400 [facility] 1 [place] [address] PCP - General Internal Medicine 05/06/21 Henry Kelly MD Pulmonary Department 175 [facility], [address] [place] [address] Physician Pulmonary Disease 09/06/17 06/22/20 documented as of this encounter
--- OUTSIDE RECORDS SUMMARY | 2025-04-22 21:21 | XMS_ITS | Clinical Summary ---
Author Organization [facility] Address [address] [place] [address] Phone Care Team Providers Care Political Researcher Name Role Phone Caitlyn Bowie MD [...] (12/25/2021 4:22 PM EDT): Followed closely by mortuary operations manager-Dr. Ronald Mills at [facility] hematology- advised to continue Coumadin anticoagulation [...] (09/09/2021 10:42 PM EST): Followed closely by mortuary operations manager-Dr. Ronald Mills at [facility] hematology- last seen on 08/05/2021 and [...] anticoagulation clinic to keep INR at 1.5-2.0. 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 Daily [...] alternating low dosing as prescribed by her spray gun sizer and consider gentle taper when ready. Daily [...] AM EDT Office Visit [facility] [address] [place] [address] Anna Ellis MD Acquired hypothyroidism (Primary Dx); Hyperparathyroidism; Age-related osteoporosis without current pathological fracture; Adrenal insufficiency from Last 3 Months Immunizations Immunization Administration Dates Next Due Influenza, Unspecified Formulation 05/01/2009(De komald: Patient Decision) Pneumococcal polysaccharide PPSV23 05/01/2009(Burdickd: Patient Decision) Social History Tobacco Use Types [...] 11:40 AM EST Office Visit [facility] [address] [place] [address] Anna Ellis MD [address] [place] [address] [email or web address] Health Maintenance Due Date Last Done Comments [...] MD LAB BLOOD ORDERABLES F inal Result [facility] [address] [place] [address] from Last 3 Months or Most Recently Relevant to Health Maintenance Insurance MEDICARE PART A & B [facility] MEDEX SUPPLEMENT COUNT INCLUDES THE [facility] FULL [facility] MEDICARE PART A & B [facility] MEDEX SUPPLEMENT COUNT [facility]CLUDES THE [facility]ULL [facility] MEDICARE PART A & B [facility] MEDEX SUPPLEMENT [facility] NET FULL [facility] MEDICARE PART A & B [facility] MEDEX SUPPLEMENT HEALTH SAFETY NET FULL [facility] MEDICARE PART A & B [facility] MEDEX SUPPLEMENT [facility] A & B [facility] MEDEX SUPPLEMENT HEALTH SAFETY [facility] A & B Member Subscriber Plan / Payer (Ef fective 1999-Present) Name:Jovana Malik Member ID:[id number] Relation to Subscriber:Self Name:Jovana Malik Subscriber ID:[id number] Payer ID:[id number] Group ID:Not on file Type:Medicare Address: [facility] [employer] [facility] [address] [place] [address] [place] [address] [facility] MEDEX SUPPLEMENT HEALTH SAFETY NET [facility] PART A & B [facility] MEDEX SUPPLEMENT [facility] NET [facility] MEDICARE PART A & B [facility] MEDEX SUPPLEMENT HEALTH SAFETY NET [facility]ULL [facility] Care Teams Political Researcher Relationship Specialty [place] [address] [place] [address] PCP - General Internal Medicine 09/09/21 Additional Source Comments The information contained in this document represents components of the legal health record. It is not the complete legal health record.[facility]
--- OUTSIDE RECORDS SUMMARY | 2025-04-22 21:21 | XMS_ITS | Encounter Summary ---
Author Organization [facility] and [facility] Address [address] [place] [address] Care Team Providers Care Embossing Clerk Name Role Phone Caitlyn Bowie MD Primary Care Provider +1- [phone] Encounter Details Date Type Department Care Team (Late st Contact Info) Description 11/09/2020 Scanned Document INTERFACE DEFAULT [address] [place] [address] System, Provider Not In Social History Tobacco [...] [facility] 240 [facility] Building [address] [place] [address] Ronald Mills MD [address] [place] [address] [address]1 [place] [address] documented as of this encounter Visit Diagnoses Not on filedocumented in this encounter Additional Health Concerns Infection Onset Date Last Indicated Resolved Time COVID-19 03/05/2022 03/05/2022 03/15/2022 7:18 PM EDT Assessment Noted Time PHQ-9 Depression Total Score: 2 11/07/19 19 2:06 PM EDT documented as of this encounter Care Teams Embossing Clerk Relationship Specialty Start Date End Date Caitlyn Bowie MD [address] [address] PCP - General Internal Medicine 05/06/21 documented as of this encounter
--- OUTSIDE RECORDS SUMMARY | 2025-04-22 21:21 | XMS_ITS | Encounter Summary ---
Author Organization [facility] and [facility] Address [address] [place] [address] Care Team Providers Care Echo Vascular Technologist Name Role Phone Caitlyn Bowie MD Primary Care Provider +1- [phone] Encounter Details Date Type Department Care Team (Late st Contact Info) Description 08/08/2024 Scanned Document INTERFACE DEFAULT [address] [place] [address] System, Provider Not In Social History Tobacco [...] [facility] at [facility] 240 [facility] Building [address] [place], [place] [phone] Ronald Mills MD [address] [place] [address] [address] [place] [address] documented as of this encounter [...] as of this encounter Care Teams Echo Vascular Technologist Relationship Specialty Start Date End Date Caitlyn Bowie MD [address] [address] PCP - General Internal Medicine 05/06/21 documented as of this encounter
[2025-04-22 21:33] LABS: Resp Syncy Virus RNA Qual PCR NEGATIVE (Negative); SARS COV2 PCR INHOUSE NEGATIVE (Negative)
[2025-04-23] VITALS (13 sets, daily range): BP systolic 106–145; BP diastolic 34–63; PULSE 64–96; RESP 16–27; TEMP 36.6–36.9; O2SAT 95–100; BMI 23.7; BMI 22.8
[2025-04-23] MEDS: Furosemide 40 MG/4 ML VIAL IVPUSH (01:31)
[2025-04-23 01:53] LABS: NT Pro B Type Natriuretic Pept 1126.0 pg/mL (<300)
--- NOTE | 2025-04-23 02:41 | ED.SOB ---
HPI - SOB/Dyspnea General Chief Complaint: Dyspnea Stated Complaint: CP repeatable radiates both arms refused meds Time Seen by Provider: 04/23/25 00:04 Source: patient and EMS Mode of arrival: EMS Limitations: no limitations History of Present Illness ED Provider: Dr. Sally Berman HPI Narrative: 80-year-old female with history of oxygen-dependent COPD, sleep apnea, complex regional pain syndrome, CAD, CHF presenting via EMS with shortness of breath that is been ongoing for the last several days. Patient admits that her breathing has been worsening over the last several months. Describes a steady decline in her exercise capacity. Admits that she was previously able to go to the grocery store and carry home her groceries to the car however, she is at the point now where she has to cut her grocery shops short so she can go home and rest in between. States she has a chest tightness associated with shortness of breath with exertion. Admits that even now, speaking in full sentences has her winded. Denies associated fever, cough, sputum production, abdominal pain, nausea or vomiting, bowel changes or urinary complaints. No worsening of her chronic lower extremity edema. Does admit to appetite loss. She also feels extremely isolated, anxious and depressed over her chronic illness.. Denies suicidal ideation. Related Data Home Medications ?Medication ?Instructions ?Recorded ?Confirmed CPAP (CPAP Machine/Device) 06/30/22 11/11/24 Oxygen Home Use 06/30/22 11/11/24 nebulizers 06/30/22 11/11/24 epinephrine 0.3 mg/0.3 mL 0.3 mg IM USEASDIRECTD PRN 07/14/22 04/23/25 injection, auto-injector Allergic Reaction levothyroxine 25 mcg tablet 50 mcg PO SUSA@0600 01/05/24 04/23/25 (Synthroid) docusate sodium 100 mg capsule 100 mg PO BID 01/14/24 04/23/25 diazepam 5 mg tablet 2.5 mg PO BID PRN anxiety 11/21/24 04/23/25 ferrous gluconate 324 mg (38 mg 324 mg PO DAILY 01/16/25 04/23/25 iron) tablet folic acid 1 mg tablet 1 mg PO DAILY 01/16/25 04/23/25 levothyroxine 25 mcg tablet 25 mcg PO MOTUWETHFR@0600 01/16/25 04/23/25 (Synthroid) rosuvastatin 10 mg tablet 10 mg PO MOWEFR@2100 01/16/25 04/23/25 warfarin 1 mg tablet (Jantoven) See Rx Instructions .Route .COMPLEX 01/16/25 04/23/25 ascorbic acid (vitamin C) 250 mg 250 mg PO DAILY 04/23/25 04/23/25 tablet cetirizine 10 mg tablet (Zyrtec) 10 mg PO DAILY 04/23/25 04/23/25 cyanocobalamin (vitamin B-12) 50 50 mcg PO DAILY 04/23/25 04/23/25 mcg tablet (Vitamin B-12) riboflavin (vitamin B2) 25 mg 25 mg PO DAILY 04/23/25 04/23/25 tablet simethicone 80 mg chewable tablet 80 mg PO QIDWMHS PRN Abdominal 04/23/25 04/23/25 (Gas Relief (simethicone)) Discomfort zinc 50 mg capsule 50 mg PO DAILY 04/23/25 04/23/25 Previous Rx's ?Medication ?Instructions ?Recorded Advair HFA 230 mcg-21 2 puff inhalation BID 90 days #36 03/13/24 mcg/actuation aerosol inhaler grams (fluticasone propion-salmeterol) levocetirizine 5 mg tablet 5 mg PO DAILY 90 days #90 tabs 05/23/24 trazodone 50 mg tablet 100 mg (2 x 50 mg) PO BEDTIME #180 07/01/24 tabs meclizine 25 mg tablet 25 mg PO Q8H PRN dizziness 10 days 07/22/24 #30 tabs montelukast 10 mg tablet 10 mg PO DAILY #90 tabs 08/24/24 albuterol sulfate 90 mcg/actuation 2 inh inhalation Q6H PRN shortness 11/05/24 aerosol inhaler of breath or wheezing 90 days #3 ea fluticasone propionate 50 2 spray intranasal DAILY 90 days 11/05/24 mcg/actuation nasal #3 ea spray,suspension potassium chloride 20 mEq oral 20 meq PO DAILY 90 days #180 04/01/25 packet packets metoprolol succinate 50 mg 50 mg PO BID #180 tabs 04/08/25 tablet,extended release 24 hr (Toprol XL) furosemide 40 mg tablet 80 mg (2 x 40 mg) PO BID #360 tabs 04/10/25 prednisone 2.5 mg tablet 2.5 mg PO Q OTHER DAY #90 tabs 04/22/25 Allergies Allergy/AdvReac Type Severity Reaction Status Date / Time morphine Allergy Severe Itching Verified 04/22/25 20:16 avocado (AVOCADO) Allergy Mild ITCHY Verified 04/22/25 20:16 THROAT, RASH azithromycin (AZITHROMYCIN) Allergy Mild ITCHY Verified 04/22/25 20:16 THROAT, RASH barium iodide (BARIUM IODIDE) Allergy Mild ITCHY Verified 04/22/25 20:16 THROAT, RASH barium sulfate Allergy Mild Itch Verified 04/22/25 20:16 bee pollen (BEE STINGS) Allergy Mild ITCHY Verified 04/22/25 20:16 THROAT, RASH ciprofloxacin (From CIPRO) Allergy Mild ITCHY Verified 04/22/25 20:16 THROAT, RASH clarithromycin (From BIAXIN) Allergy Mild ITCHY Verified 04/22/25 20:16 THROAT, RASH diatrizoate meglumine (From Allergy Mild ITCHY Verified 04/22/25 20:16 GASTROGRAFIN) THROAT, RASH diatrizoate sodium (From Allergy Mild ITCHY Verified 04/22/25 20:16 GASTROGRAFIN) THROAT, RASH diclofenac (From VOLTAREN) Allergy Mild ITCHY Verified 04/22/25 20:16 THROAT, RASH erythromycin base Allergy Mild ITCHY Verified 04/22/25 20:16 (ERYTHROMYCIN BASE) THROAT, RASH gentamicin (GENTAMICIN) Allergy Mild ITCHY Verified 04/22/25 20:16 THROAT, RASH Iodinated Contrast Media Allergy Mild ITCHY Verified 04/22/25 20:16 (IVP DYE) THROAT, RASH levofloxacin (From LEVAQUIN) Allergy Mild ITCHY Verified 04/22/25 20:16 THROAT, RASH metronidazole (From FLAGYL) Allergy Mild ITCHY Verified 04/22/25 20:16 THROAT, RASH moxifloxacin (From AVELOX) Allergy Mild ITCHY Verified 04/22/25 20:16 THROAT, RASH Penicillins (PENICILLINS) Allergy Mild ITCHY Verified 04/22/25 20:16 THROAT, RASH shrimp (SHRIMP) Allergy Mild ITCHY Verified 04/22/25 20:16 THROAT, RASH Sulfa (Sulfonamide Allergy Mild ITCHY Verified 04/22/25 20:16 Antibiotics) (SULFA THROAT, (SULFONAMIDE ANTIBIOTICS)) RASH vancomycin (VANCOMYCIN) Allergy Mild ITCHY Verified 04/22/25 20:16 THROAT, RASH clindamycin AdvReac Intermediate Unknown Verified 04/22/25 20:16 Review of Systems Review of Systems: as per HPI, full review of systems performed and negative but for the above mentioned pertinent positives and negatives. [facility] Past Medical History Medical History Chest pain Chest pain Ankle pain Chronic hypercapnic respiratory failure KANDY treated with BiPAP COPD (chronic obstructive pulmonary disease) Open wound Warfarin anticoagulation Complex sleep apnea syndrome Leg pain Anemia Tachycardia DVT (deep venous thrombosis) Compression fracture of body of thoracic vertebra ASD (atrial septal defect) Pleuritic chest pain History of COVID-19 Chronic anticoagulation Hypothyroidism GERD (gastroesophageal reflux disease) Hyperlipidemia Hypertension Factor 5 Leiden mutation, heterozygous History of non-ST elevation myocardial infarction (NSTEMI) Hypoxia Anxiety PTSD (post-traumatic stress disorder) Hemoptysis Dyspnea Tracheobronchitis CLARA positive Diverticulitis Allergic bronchitis (HFpEF) heart failure with preserved ejection fraction Subarachnoid bleed Insomnia Anti-phospholipid antibody syndrome Hypogammaglobulinemia Chronic respiratory failure Arterial insufficiency of lower extremity Complex regional pain syndrome i of right lower limb Post herpetic neuralgia Pulmonary hypertension Pericardial effusion Pulmonary emboli Pleural effusion Radiation fibrosis of lung Pneumonitis Pulmonary nodules Lung cancer Surgical History History of colonoscopy History of lung surgery History of tonsillectomy History of hysterectomy S/P mitral valve clip implantation History of cardiac cath Family History Family History Sister No problems noted. Mother Cardiovascular disease Daughter Tachycardia Other KANDY (obstructive sleep apnea) Social History Social History Household Members: None Housing: House Do you presently have visiting nurse or other home services: No Alcohol intake: never Comment: stand by assist with ambulation Patient Tobacco Use Status: Never used Tobacco Second Hand Smoke Exposure: No Advance Directives Date on File: 06/15/22 service: No Current occupational status: retired Physical Exam Exam: Exam: GENERAL: Chronically ill-appearing, moderate respiratory distress. SKIN: Normal skin color for ethnicity, warm, dry, no rashes noted. HEENT: Normocephalic, atraumatic, no stridor, EOMI. NECK: Soft, supple, full ROM, midline structures nontender, no step-offs, no deformities, no lymphadenopathy. CHEST: Heart regular tachycardia, symmetric chest rise and fall. PULMONARY: Coarse lung sounds bilaterally, diminished at the bases, moderate respiratory distress with poor air movement, no wheezes. ABDOMINAL: Soft, protuberant nontender, quiet bowel sounds in all quadrants. : Deferred. MUSCULOSKELETAL: Normal tone, full range of motion, no deformities, 2+ peripheral edema bilaterally L>R. NEURO: Alert and oriented to person, CN II through XII intact, no focal neurologic deficits. PSYCHIATRIC: Anxious affect, appropriate demeanor. Vital Signs: Vital Signs: Last Vital Signs Temp 98.0 F 04/23/25 23:55 Pulse 76 04/23/25 23:55 Resp 16 04/23/25 23:55 BP 131/63 04/23/25 23:55 Pulse Ox 100 04/23/25 23:55 O2 Del Method Nasal Cannula 04/23/25 23:55 O2 Flow Rate 2 04/23/25 23:55 Oxygen Flow Rate 2 04/22/25 20:11 BMI result Body Mass Index 23.7 Medications Administered Generic Name Dose Route Start Last Admin Trade Name Freq PRN Reason Stop Dose Admin Albuterol Sulfate 2 puff 04/23/25 10:28 04/23/25 15:23 Albuterol Sulfate 90 Mcg 8 Gm Inhaler INHALE 2 puff Q6H PRN Administration shortness of breath or wheezing Atorvastatin Calcium 10 mg 04/23/25 21:00 04/23/25 22:24 Atorvastatin Calcium 10 Mg Tablet PO 10 mg MOWEFR@2100 MATHEW Administration Calcium Carbonate 750 mg 04/23/25 03:38 04/23/25 20:16 Calcium Carbonate 750 Mg Tab.Chew PO 750 mg Q4H PRN Administration Heartburn Cyanocobalamin 50 mcg 04/23/25 10:30 04/23/25 11:14 Cyanocobalamin (Vitamin B-12) 100 Mcg Tablet PO 50 mcg DAILY MATHEW Administration Diazepam 2.5 mg 04/23/25 11:05 04/23/25 15:23 Diazepam 5 Mg Tablet PO 2.5 mg BID PRN Administration anxiety Docusate Sodium 100 mg 04/23/25 10:30 04/23/25 22:26 Docusate Sodium 100 Mg Capsule PO 100 mg BID MATHEW Administration Fluticasone Propionate 2 spray 04/24/25 09:00 04/23/25 11:13 Fluticasone Propionate Nasal 16 Gm [place] NOSTRIL-B 2 spray DAILY MATHEW Administration Fluticasone/Vilanterol 1 puff 04/24/25 08:00 04/23/25 11:29 Fluticasone/Vilanterol /25 Blst.W.Dev INHALE 1 puff RDAILY MATHEW Administration Folic Acid 1 mg 04/23/25 10:30 04/23/25 11:15 Folic Acid 1 Mg Tablet PO 1 mg DAILY MATHEW Administration Furosemide 40 mg 04/23/25 18:00 04/23/25 19:05 Furosemide 40 Mg Tablet PO 40 mg BID@0900,1800 MATHEW Administration Protocol Levothyroxine Sodium 25 mcg 04/24/25 06:00 04/23/25 11:16 Levothyroxine Sodium 25 Mcg Tablet PO 25 mcg MOTUWETHFR@0600 MATHEW Administration Metoprolol Succinate 50 mg 04/23/25 10:30 04/23/25 22:24 Metoprolol Succinate Er 50 Mg Tab.Er.24h PO 50 mg BID MATHEW Administration Protocol Montelukast Sodium 10 mg 04/23/25 21:00 04/23/25 22:24 Montelukast Sodium 10 Mg Tablet PO 10 mg BEDTIME MATHEW Administration Potassium Chloride 20 meq 04/23/25 09:00 04/23/25 12:47 Potassium Chloride Packet 20 Meq Packet PO Not Given DAILY MATHEW Potassium Chloride 20 meq 04/23/25 10:30 04/23/25 10:44 Potassium Chloride Packet 20 Meq Packet PO 20 meq DAILY MATHEW Administration Senna 17.2 mg 04/23/25 21:00 04/23/25 22:23 Sennosides 8.6 Mg Tablet PO 17.2 mg BEDTIME MATHEW Administration Sodium Chloride 3 ml 04/23/25 08:00 04/23/25 16:50 0.9 % Sodium Chloride Flush 3 Ml Syringe IVFLUSH Not Given QSHIFT MATHEW Spironolactone 25 mg 04/23/25 10:25 04/23/25 11:14 Spironolactone 25 Mg Tablet PO 25 mg DAILY MATHEW Administration Protocol Trazodone HCl 100 mg 04/23/25 21:00 04/23/25 22:23 Trazodone Hcl 100 Mg Tablet PO 100 mg BEDTIME MATHEW Administration Warfarin Sodium 2.5 mg 04/23/25 18:00 04/23/25 19:08 Warfarin Sodium 2.5 Mg Tablet PO 2.5 mg DAILY@1800 MATHEW Administration Discontinued Medications Generic Name Dose Route Start Last Admin Trade Name Kobi PRN Reason Stop Dose Admin Albuterol Sulfate 2.5 mg 04/23/25 10:30 04/23/25 15:31 Albuterol Sulfate (0.083%) 2.5 Mg/3 Ml Vial.Neb INHALE 04/23/25 10:31 2.5 mg ONCE ONE Administration Diazepam 5 mg 04/23/25 01:15 04/23/25 01:32 Diazepam 5 Mg Tablet PO 04/23/25 01:16 5 mg ONCE ONE Administration Furosemide 40 mg 04/23/25 01:09 04/23/25 01:31 Furosemide 40 Mg/4 Ml Vial IVPUSH 04/23/25 01:10 40 mg ONCE ONE Administration Protocol Furosemide 20 mg 04/23/25 10:55 04/23/25 11:16 Furosemide 20 Mg/2 Ml Vial IVPUSH 04/23/25 10:56 20 mg ONCE ONE Administration Protocol Montelukast Sodium 10 mg 04/23/25 10:30 04/23/25 10:59 Montelukast Sodium 10 Mg Tablet PO Not Given DAILY MATHEW Potassium Chloride 40 meq 04/23/25 06:06 04/23/25 06:47 Potassium Chloride Packet 20 Meq Packet PO 04/23/25 06:07 40 meq ONCE ONE Administration Trazodone HCl 50 mg 04/23/25 04:06 04/23/25 04:46 Trazodone Hcl 50 Mg Tablet PO 04/23/25 04:07 50 mg ONCE ONE Administration Medical Decision Making Medical Decision Making MDM Narrative: Patient presents today with chief complaint of shortness of breath. Differential diagnosis includes, but is not limited to, upper respiratory infection, pneumonia, COPD exacerbation, asthma exacerbation, CHF, pneumothorax, pleural effusion, pulmonary embolism, ACS. Broad-based work-up will be initiated to evaluate for etiology of patient's symptoms. Patient's clinical picture is consistent with a CHF exacerbation. Her worsening dyspnea on exertion and orthopnea has become progressively worse over the last several months to the point where she is now unable to perform daily functions as usual. Plan for IV diuresis and admission for further care and evaluation. Patient understands and agrees with plan for admission. Differential Diagnosis Differential Diagnoses: The differential diagnosis associated with the presentation includes (as above) Admission/Observation Consideration of admission/observation: Escalation of care including admission/observation considered Consult Healthcare Provider Management of the patient was discussed with: Hospitalist Lab Data MDM Lab Attestation statement: I reviewed the patient's lab results. 04/23/25 04:02 04/23/25 04:02 Labs: Lab Results 04/22/25 Range/Units 20:49 WBC 10.8 (4.8-10.8) X10*3/uL RBC 3.48 L (4.20-5.50) X10*6/uL Hgb 11.5 L (12.0-16.0) g/dl Hct 35.9 L (37.0-47.0) % MCV 103.2 H (80.0-98.0) fL MCH 33.0 (27.0-33.0) pg MCHC 32.0 (31.0-35.0) g/dl RDW 13.9 (11.0-16.0) % Plt Count 184 (160-400) X10*3/uL MPV 10.7 (9.4-12.3) fL Immature Gran % (Auto) 1.4 H (0.0-0.4) % Neut % (Auto) 76.8 H (45-73) % Lymph % (Auto) 11.3 L (20-40) % Mccone % (Auto) 8.8 (2-11) % Eos % (Auto) 1.1 (0-4) % Baso % (Auto) 0.6 (0-2) % Lymph # (Auto) 1.2 (1.2-4.9) X10*3/uL Mccone # (Auto) 1.0 (0.1-1.2) X10*3/uL Eos # (Auto) 0.1 (0.0-0.4) X10*3/uL Baso # (Auto) 0.1 (0.0-0.2) X10*3/uL Abs Immat Gran (auto) 0.15 H (0.00-0.03) X10*3/uL Absolute Neuts (auto) 8.3 (2.0-8.3) x10*3/uL Absolute Nucleated RBC 0.000 (0.0-0.012) X10*3/uL Nucleated RBC % (auto) 0.0 (0.0-0.2) /100WBC Sodium 140 (135-145) mmol/L Potassium 3.3 (3.3-5.1) mmol/L Chloride 101 (96-108) mmol/L Carbon Dioxide 30 H (22-29) mmol/L Anion Gap 12 (12-20) BUN 23 H (9-16) mg/dL Creatinine 0.76 (0.5-1.4) mg/dL Estim Creat Clear Calc 47.2 Estimated GFR > 60 Random Glucose 100 (60-115) mg/dL Calcium 9.8 (8.4-10.2) mg/dL Magnesium 2.5 (1.6-2.6) mg/dL Troponin I High Sens 15.0 (<3.5-17.0) ng/L NT-Pro-B Natriuret Pep 1126.0 H (<300) pg/mL Influenza Type A (PCR) NEGATIVE (Negative) Influenza Type B (PCR) NEGATIVE (Negative) RSV RNA Qual (PCR) NEGATIVE (Negative) SARS-CoV-2 RNA (RT-PCR) NEGATIVE (Negative) Independent Interpretation I performed an independent interpretation of an: EKG and Plain X-Ray Radiology Impression Discussion of test interpretation with radiology: I have reviewed the radiologist's reading. Independent Historian Clinical information obtained from an independent historian. History obtained from or confirmed by: EMS External Record Review External record reviewed: Inpatient record Chronic Conditions Patient?s care impacted by: Hypertension and Other (COPD, CHF) Social Determinants Patient?s care significantly limited by Social Determinants of Health including: Problems related to primary support group and Other Social Determinant of Health Discharge Plan Discharge Clinical Impression: Acute exacerbation of congestive heart failure, Dependence on supplemental oxygen, Anxiety and depression, Recurrent left pleural effusion Patient Disposition: Admitted As Inpatient Interventions: Admission Worksheet (ED) Last Done: 04/23/25 20:48 Discharge Date/Time: 04/23/25 23:31
--- OUTSIDE RECORDS SUMMARY | 2025-04-23 03:12 | XMS_ITS | Encounter Summary ---
Author Organization [facility] Address [address] [place] [address] Care Team Providers Care Refrigeration Person Name Role Phone Victorino Martin MD Primary Care Provider UnavailSharon Kimbrough Primary Care Provider Unava ilable Brennan Burnett MD Primary Care Provider Unavailab Hayden Montes MD Unavailable [phone] Pallavi Flood NP Unavailable [phone] Caitlyn Bowie MD Primary Care Provider Unava ilable Reason for Visit * Reason Onset Date Comments other 02/06/2018 Encounter Details Date Type Department Care Team Description 02/06/2018 Telephone Pulmonology - [address] [place] [address] Henry Kelly MD other Social [...] on filedocumented in this encounter Care Teams Refrigeration Person Relationship Specialty Start Date End Date Victorino Martin MD PCP - General Internal Medicine 12/21/17 08/01/18 Sharon Vides PCP - General Internal Medicine 08/02/18 05/26/20 Brennan Burnett MD PCP - General Internal Medicine 05/27/20 12/07/21 Caitlyn Bowie MD [address] [place] [address] PCP - General Internal Medicine 12/08/21 Hayden Shah MD [address] [place] [address] Specialist Cardiovascular Disease 09/01/20 Pallavi Flood NP [address] [place] [address] Cardiology 09/01/20 documented as of this encounter
--- OUTSIDE RECORDS SUMMARY | 2025-04-23 03:12 | XMS_ITS | Encounter Summary ---
Author Organization [facility] Address [address] [place] [address] Care Team Providers Care Complaint Manager Name Role Phone Victorino Martin MD Primary Care Provider Sharon Odonnell Primary Care Provider Brennan Castro MD Primary Care Provider UnavailHayden Fernandez MD Unavailable [phone] Pallavi Flood NP Unavailable [phone] Caitlyn Bowie MD Primary Care Provider Johnathon shaver Encounter Details Date Type Department Care Team Description 02/07/2018 Virtual Office Assistant Report Medical Records [address] [place] [address] Victorino Martin MD Social History Tobacco Use [...] on filedocumented in this encounter Care Teams Complaint Manager Relationship Specialty Start Date End Date Victorino Martin MD PCP - General Internal Medicine 12/21/17 08/01/18 Sharon Vides PCP - General Internal Medicine 08/02/18 05/26/20 Brennan Burnett MD PCP - General Internal Medicine 05/27/20 12/07/21 Caitlyn Bowie MD [address] [place] [address] PCP - General Internal Medicine 12/08/21 Hayden Shah MD [address] [place] [address] [id number] Specialist Cardiovascular Disease 09/01/20 Pallavi Flood NP [address] [place] [address] [id number] Cardiology 09/01/20 documented as of this encounter
--- OUTSIDE RECORDS SUMMARY | 2025-04-23 03:12 | XMS_ITS | Encounter Summary ---
Author Organization [facility] Address [address] [place] [address] Care Team Providers Care Environmental Marketing Representative Name Role Phone Victorino Martin MD Primary Care Provider Sharon Odonnell Primary Care Provider Brennan Castro MD Primary Care Provider Unavailab Hayden Montes MD Unavailable Pallavi Flood NP Unavailable [phone] Caitlyn Bowie MD Primary Care Provider Johnathon shaver Encounter Details Date Type Department Care Team Description 02/06/2018 Telephone Pulmonology - [address] [place] [address] Henry Kelly MD Social History [...] filedocumented in this encounter Care Teams Environmental Marketing Representative Relationship Specialty Start Date End Date Victorino Martin MD PCP - General Internal Medicine 12/21/17 08/01/18 Sharon Vides PCP - General Internal Medicine 08/02/18 05/26/20 Brennan Burnett MD PCP - General Internal Medicine 05/27/20 12/07/21 Caitlyn Bowie MD [address] [place] [address] PCP - General Internal Medicine 12/08/21 Hayden Shah MD [address] [place] [address] Specialist Cardiovascular Disease 09/01/20 Pallavi Flood NP [address] [place] [address] Cardiology 09/01/20 documented as of this encounter
--- OUTSIDE RECORDS SUMMARY | 2025-04-23 03:12 | XMS_ITS | Encounter Summary ---
Author Organization [facility] Address [address] [place] [address] Care Team Providers Care Foundry Technician Name Role Phone Brennan Burnett MD Primary Care Provider Unavailab Hayden Montes MD Unavailable [phone] Pallavi Flood NP Unavailable [phone] Caitlyn Bowie MD Primary Care Provider Unava ilable Encounter Details Date Type Department Care Team Description 08/17/2020 [facility] Medical Records [address] [place] [id number] [place] [address] Social History Tobacco Use Types Packs/Day Years [...] on filedocumented in this encounter Care Teams Foundry Technician Relationship Specialty Start Date End Date Brennan Burnett MD PCP - General Internal Medicine 05/27/20 12/07/21 Caitlyn Bowie MD [address] [place] [address] PCP - General Internal Medicine 12/08/21 Hayden Shah MD [address] [place] [address] Specialist Cardiovascular Disease 09/01/20 Pallavi Flood NP [address] [place] [address] Cardiology 09/01/20 documented as of this encounter
--- OUTSIDE RECORDS SUMMARY | 2025-04-23 03:12 | XMS_ITS | Encounter Summary ---
Author Organization [facility] Address [address] [place] [address] Care Team Providers Care Drug Enforcement Administration Agent Name Role Phone Victorino Martin MD Primary Care Provider Sharon Odonnell Primary Care Provider Bernnan Castro MD Primary Care Provider UnavailHayden Fernandez MD Unavailable [phone] Pallavi Flood NP Unavailable [phone] Caitlyn Bowie MD Primary Care Provider Johnathon shaver Encounter Details Date Type Department Care Team Description 03/01/2018 Electromechanical Equipment Assembler Report Medical Records [address] [place] [id number] Renetta Lugo Np Social History Tobacco Use [...] on filedocumented in this encounter Care Teams Drug Enforcement Administration Agent Relationship Specialty Start Date End Date Victorino Martin MD PCP - General Internal Medicine 12/21/17 08/01/18 Sharon Vides PCP - General Internal Medicine 08/02/18 05/26/20 Brennan Burnett MD PCP - General Internal Medicine 05/27/20 12/07/21 Caitlyn Bowie MD [address] [place] [address] PCP - General Internal Medicine 12/08/21 Hayden Shah MD [address] [place], [place] [id number] Specialist Cardiovascular Disease 09/01/20 Pallavi Flood NP [address] [place] [address] [phone] Cardiology 09/01/20 documented as of this encounter
--- OUTSIDE RECORDS SUMMARY | 2025-04-23 03:12 | XMS_ITS | Encounter Summary ---
Author Organization [facility] Address [address] [place] [address] Care Team Providers Care Flower Buncher Or Picker Name Role Phone Sharon Vides Primary Care Provider Unava ilable Brennan Burnett MD Primary Care Provider Unavailab Hayden Montes MD Unavailable [phone] Pallavi Flood NP Unavailable [phone] Caitlyn Bowie MD Primary Care Provider Unava ilable Reason for Visit * Reason Onset Date Comments other 12/13/2019 Encounter Details Date Type Department Care Team Description 12/13/2019 Telephone General Surgery [address] [address] Norma Mendoza MD [address] [place] [address] [id number] other Social History Tobacco Use Types Packs/Day [...] and put pt in with [facility]-- opening [id number]-- pt said very painful- possibly infected and [...] filedocumented in this encounter Care Teams Flower Buncher Or Picker Relationship Specialty Start Date End Date Sharon Vides PCP - General Internal Medicine 08/02/18 05/26/20 Brennan Burnett MD PCP - General Internal Medicine 05/27/20 12/07/21 Caitlyn Bowie MD [address] [place] [address] PCP - General Internal Medicine 12/08/21 Hayden Shah MD [address] [place] [address] Specialist Cardiovascular Disease 09/01/20 Pallavi Flood NP [address] [place] [address] Cardiology 09/01/20 documented as of this encounter
--- OUTSIDE RECORDS SUMMARY | 2025-04-23 03:12 | XMS_ITS | Encounter Summary ---
Author Organization [facility] Address [address] [place] [address] Care Team Providers Care Seamer Panty Hose Name Role Phone Brennan Burnett MD Primary Care Provider Unavailab Hayden Montes MD Unavailable [phone] Pallavi Flood NP Unavailable [phone] Caitlyn Bowie MD Primary Care Provider Unava ilable Encounter Details Date Type Department Care Team Description 09/15/2020 SCAN Medical Records [address] [place] [address] Abstract, Provider Social History Tobacco Use Types [...] on filedocumented in this encounter Care Teams Seamer Panty Hose Relationship Specialty Start Date End Date Brennan Burnett MD PCP - General Internal Medicine 05/27/20 12/07/21 Caitlyn Bowie MD [address] [place] [address] PCP - General Internal Medicine 12/08/21 Hayden Shah MD [address] [place] [address] Specialist Cardiovascular Disease 09/01/20 Pallavi Flood NP [address] [place] [address] Cardiology 09/01/20 documented as of this encounter
--- OUTSIDE RECORDS SUMMARY | 2025-04-23 03:12 | XMS_ITS | Encounter Summary ---
Author Organization [facility] Address [address] [place] [address] Care Team Providers Care Secondary Social Studies Teacher Name Role Phone Cristofer Hope MD Primary Care Provider Victorino Read MD Primary Care Provider UnavailSharon Kimbrough Primary Care Provider Unava ilBrennan Newman MD Primary Care Provider Unavailab Hayden Montes MD Unavailable [phone] Pallavi Flood NP Unavailable [phone] Caitlyn Bowie MD Primary Care Provider Unava chhaya Encounter Details Date Type Department Care Team Description 06/15/2017 Transfer Records Medical Records [address] [place] [address] Abstract, Provider Social History Tobacco Use Types [...] on filedocumented in this encounter Care Teams Secondary Social Studies Teacher Relationship Specialty Start Date End Date Cristofer Hope MD PCP - General Internal Medicine 05/16/17 12/20/17 Victorino Martin MD PCP - General Internal Medicine 12/21/17 08/01/18 Sharon Vides PCP - General Internal Medicine 08/02/18 05/26/20 Brennan Burentt MD PCP - General Internal Medicine 05/27/20 12/07/21 Caitlyn Bowie MD [address] [place] [address] PCP - General Internal Medicine 12/08/21 Hayden Shah MD [address] [place], [place] [id number] Specialist Cardiovascular Disease 09/01/20 Pallavi Flood NP [address] [place], [place] [id number] Cardiology 09/01/20 documented as of this encounter
--- OUTSIDE RECORDS SUMMARY | 2025-04-23 03:12 | XMS_ITS | Encounter Summary ---
Author Organization [facility] Address [address] [place] [address] Care Team Providers Care Ordnance Artificer Name Role Phone Victorino Martin MD Primary Care Provider UnavailSharon Kmibrough Primary Care Provider Unava ilable Brennan Burnett MD Primary Care Provider Unavailab Hayden Montes MD Unavailable [phone] Pallavi Flood NP Unavailable [phone] Caitlyn Bowie MD Primary Care Provider Unava ilable Reason for Visit * Reason Onset Date Comments refill request 06/25/2018 Call From Pharmacy 06/25/2018 Encounter Details Date Type Department Care Team Description 06/25/2018 Refill Pulmonology - [address] [place] [address] Henry Kelly MD refill request; [...] Does patient have an upcoming appointment? Yes [id number] (THE MEDICATION IS NOT ON THE MED LIST AND IS IDENTIFIED BELOW): {MED LIST:07194) Med name: Ventolin HFA Dosage: 90 mcg [...] bronchitis documented in this encounter Care Teams Ordnance Artificer Relationship Specialty Start Date End Date Victorino Martin MD PCP - General Internal Medicine 12/21/17 08/01/18 Sharon Vides PCP - General Internal Medicine 08/02/18 05/26/20 Brennan Burnett MD PCP - General Internal Medicine 05/27/20 12/07/21 Caitlyn Bowie MD [address] [place] [address] PCP - General Internal Medicine 12/08/21 Hayden Shah MD [address] [place] [address] Specialist Cardiovascular Disease 09/01/20 Pallavi Flood NP [address] [place] [address] Cardiology 09/01/20 documented as of this encounter
--- OUTSIDE RECORDS SUMMARY | 2025-04-23 03:12 | XMS_ITS | Encounter Summary ---
Author Organization [facility] Address [address] [place] [address] Care Team Providers Care Svp Digital Ad Sales Name Role Phone Victorino Martin MD Primary Care Provider UnavailSharon Kimbrough Primary Care Provider Unava ilable Brennan Burnett MD Primary Care Provider Unavailab Hayden Montes MD Unavailable [phone] Pallavi Flood NP Unavailable [phone] Caitlyn Bowie MD Primary Care Provider Unava chhaya Reason for Visit * Reason Comments E-prescribe Rx Request Encounter Details Date Type Department Care Team Description 04/28/2018 Refill Pulmonology [address] [place] [address] Henry [...] NO Patients current insurance carrier is: Payor: MEDICARE-[employer] / Plan[place] / Product Type: MEDICARE [id number] documented in this encounter Plan of Treatment Not on file documented as of this encounter Visit Diagnoses Not on filedocumented in this encounter Care Teams Svp Digital Ad Sales Relationship Specialty Start Date End Date Victorino Martin MD PCP - General Internal Medicine 12/21/17 08/01/18 Sharon Vides PCP - General Internal Medicine 08/02/18 05/26/20 Brennan Burnett MD PCP - General Internal Medicine 05/27/20 12/07/21 Caitlyn Bowie MD [address] [place] [address] PCP - General Internal Medicine 12/08/21 Hayden Shah MD [address] [place] [address] [id number] Specialist Cardiovascular Disease 09/01/20 Pallavi Flood NP [address] [place] [address] Cardiology 09/01/20 documented as of this encounter
--- OUTSIDE RECORDS SUMMARY | 2025-04-23 03:12 | XMS_ITS | Encounter Summary ---
Author Organization [facility] Address [address] [place] [address] Care Team Providers Care Preschool Lead Teacher Name Role Phone Victorino Martin MD Primary Care Provider UnavailSharon Kimbrough Primary Care Provider Unava ilable Brennan Burnett MD Primary Care Provider Unavailab Hayden Montes MD Unavailable [phone] Pallavi Flood NP Unavailable [phone] Caitlyn Bowie MD Primary Care Provider Unava chhaya Reason for Visit * Reason Comments E-prescribe Rx Request Encounter Details Date Type Department Care Team Description 07/01/2018 Refill Pulmonology [address] [place] [address] Henry Kelly MD E-prescribe Rx [...] / Plan[place] / Product Type: MEDICARE [id number] documented in this encounter Plan of Treatment Not on file documented as of this encounter Visit Diagnoses Not on filedocumented in this encounter Care Teams Preschool Lead Teacher Relationship Specialty Start Date End Date Victorino Martin MD PCP - General Internal Medicine 12/21/17 08/01/18 Sharon Vides PCP - General Internal Medicine 08/02/18 05/26/20 Brennan Burnett MD PCP - General Internal Medicine 05/27/20 12/07/21 Caitlyn Bowie MD [address] [place] [address] PCP - General Internal Medicine 12/08/21 Hayden Shah MD [address] [place] [address] Specialist Cardiovascular Disease 09/01/20 [place], Pallavi Day, DIRECTOR OF PUBLIC HEALTH [address] [place] [address] Cardiology 09/01/20 documented as of this encounter
--- OUTSIDE RECORDS SUMMARY | 2025-04-23 03:12 | XMS_ITS | Encounter Summary ---
Author Organization [facility] Address [address] [place] [address] Care Team Providers Care Inhalation Therapy Teacher Name Role Phone Victorino Martin MD Primary Care Provider Sharon Odonnell Primary Care Provider Brennan Castro MD Primary Care Provider UnavailHayden Fernandez MD Unavailable [phone] Pallavi Flood NP Unavailable [phone] Caitlyn Bowie MD Primary Care Provider Johnathon shaver Encounter Details Date Type Department Care Team Description 01/22/2018 Special Skills Officer Report Medical Records [address] [place] [address] Abstract, Provider Social History Tobacco Use Types [...] on filedocumented in this encounter Care Teams Inhalation Therapy Teacher Relationship Specialty Start Date End Date Victorino Martin MD PCP - General Internal Medicine 12/21/17 08/01/18 Sharon Vides PCP - General Internal Medicine 08/02/18 05/26/20 Brennan Burnett MD PCP - General Internal Medicine 05/27/20 12/07/21 Caitlyn Bowie MD [address] [place] [address] PCP - General Internal Medicine 12/08/21 Hayden Shah MD [address] [place] [address] [id number] Specialist Cardiovascular Disease 09/01/20 Pallavi Flood NP [address] [place], [place] [phone] Cardiology 09/01/20 documented as of this encounter
--- OUTSIDE RECORDS SUMMARY | 2025-04-23 03:12 | XMS_ITS | Encounter Summary ---
Author Organization [facility] Address [address] [place] [address] Care Team Providers Care Carousel Attendant Name Role Phone Cristofer Hope MD Primary Care Provider Victorino Read MD Primary Care Provider UnavailSharon Kimbrough Primary Care Provider Unava ilBrennan Newman MD Primary Care Provider Unavailab Hayden Montes MD Unavailable [phone] Pallavi Flood NP Unavailable [phone] Caitlyn Bowie MD Primary Care Provider Unava ilable Encounter Details Date Type Department Care Team Description 10/24/2017 Pt. Non Urgent Medical Question Pulmonology - [address] [place] [address] Leslie Caro NP Allergic rhinitis, [...] me. Thank you, Jovana chaveso.b. 1945 telephone [phone] documented in this encounter Plan of Treatment Not on file documented as of this encounter Visit Diagnoses Diagnosis Allergic rhinitis, unspecified chronicity, unspecified seasonality, unspecified trigger- Primary documented in this encounter Care Teams Carousel Attendant Relationship Specialty Start Date End Date Cristofer Hope MD PCP - General Internal Medicine 05/16/17 12/20/17 Vcitorino Martin MD PCP - General Internal Medicine 12/21/17 08/01/18 Sharon Vides PCP - General Internal Medicine 08/02/18 05/26/20 Brennan Burnett MD PCP - General Internal Medicine 05/27/20 12/07/21 Caitlyn Bowie MD [address] [place] [address] PCP - General Internal Medicine 12/08/21 Hayden Shah MD [address] [place] [address] Specialist Cardiovascular Disease 09/01/20 Pallavi Flood NP [address] [place] [address] Cardiology 09/01/20 documented as of this encounter
--- OUTSIDE RECORDS SUMMARY | 2025-04-23 03:12 | XMS_ITS | Encounter Summary ---
Author Organization [facility] Address [address] [place] [address] Care Team Providers Care Road Mechanic Name Role Phone Victorino Martin MD Primary Care Provider UnavailSharon Kimbrough Primary Care Provider Unava ilable Brennan Burnett MD Primary Care Provider Unavailab Hayden Montes MD Unavailable [phone] Pallavi Flood NP Unavailable [phone] Caitlyn Bowie MD Primary Care Provider Unava ilable Reason for Visit * Reason Onset Date Comments Orders Call 07/30/2018 ultrasound Encounter Details Date Type Department Care Team Description 07/30/2018 Telephone Pulmonology - [address] [place] [address] Henry Kelly MD Orders Call [...] have no order. Please fax order to [phone]. documented in this encounter Plan of Treatment Not on file documented as of this encounter Visit Diagnoses Not on filedocumented in this encounter Care Teams Road Mechanic Relationship Specialty Start Date End Date Victorino Martin MD PCP - General Internal Medicine 12/21/17 08/01/18 Sharon Vides PCP - General Internal Medicine 08/02/18 05/26/20 Brennan Burnett MD PCP - General Internal Medicine 05/27/20 12/07/21 Caitlyn Bowie MD [address] [place] [address] PCP - General Internal Medicine 12/08/21 Hayden Shah MD [address] [place] [address] Specialist Cardiovascular Disease 09/01/20 Pallavi Flood NP [address] [place] [address] Cardiology 09/01/20 documented as of this encounter
--- OUTSIDE RECORDS SUMMARY | 2025-04-23 03:12 | XMS_ITS | Encounter Summary ---
Author Organization [facility] Address [address] [place] [address] Care Team Providers Care Commissary Production Supervisor Name Role Phone Victorino Martin MD Primary Care Provider Sharon Odonnell Primary Care Provider Brennan Castro MD Primary Care Provider Unavailab Hayden Montes MD Unavailable Pallavi Flood NP Unavailable [phone] Caitlyn Bowie MD Primary Care Provider Johnathon shaver Encounter Details Date Type Department Care Team Description 07/12/2018 Orders Only Pulmonology - [address] [place] [address] Henry Kelly MD Social History [...] on filedocumented in this encounter Care Teams Commissary Production Supervisor Relationship Specialty Start Date End Date Victorino Martin MD PCP - General Internal Medicine 12/21/17 08/01/18 Sharon Vides PCP - General Internal Medicine 08/02/18 05/26/20 Brennan Burnett MD PCP - General Internal Medicine 05/27/20 12/07/21 Caitlyn Bowie MD [address] [place] [address] PCP - General Internal Medicine 12/08/21 Hayden Shah MD [address] [place], [place] [address] Specialist Cardiovascular Disease 09/01/20 Pallavi Flood NP [address] [place] [address] Cardiology 09/01/20 documented as of this encounter
--- OUTSIDE RECORDS SUMMARY | 2025-04-23 03:12 | XMS_ITS | Encounter Summary ---
Author Organization [facility] Address [address] [place] [address] Care Team Providers Care Professor Of Biological Sciences Name Role Phone Sharon Vides Primary Care Provider Brennan Castro MD Primary Care Provider Unavailab Hayden Montes MD Unavailable [phone] Pallavi Flood NP Unavailable [phone] Caitlyn Bowie MD Primary Care Provider Johnathon shaver Encounter Details Date Type Department Care Team Description 05/07/2019 [facility] Medical Records [address] [place] [address] Abstract, Provider Social History Tobacco Use Types [...] on filedocumented in this encounter Care Teams Professor Of Biological Sciences Relationship Specialty Start Date End Date Sharon Vides PCP - General Internal Medicine 08/02/18 05/26/20 Brennan Burnett MD PCP - General Internal Medicine 05/27/20 12/07/21 Caitlyn Bowie MD [address] [place] [address] PCP - General Internal Medicine 12/08/21 Hayden Shah MD [address] [place] [address] Specialist Cardiovascular Disease 09/01/20 Pallavi Flood NP [address] [place] [address] Cardiology 09/01/20 documented as of this encounter
--- OUTSIDE RECORDS SUMMARY | 2025-04-23 03:12 | XMS_ITS | Encounter Summary ---
Author Organization [facility] Address [address] [place] [address] Care Team Providers Care Intelligence Engineer Name Role Phone Sharon Vides Primary Care Provider Unava ilable Brennan Burnett MD Primary Care Provider Unavailab Hayden Montes MD Unavailable [phone] Pallavi Flood NP Unavailable [phone] Caitlyn Bowie MD Primary Care Provider Unava ilable Reason for Visit * Reason Onset Date Comments Ankle Pain 07/05/2019 le, foot pain Encounter Details Date Type Department Care Team Description 07/05/2019 Telephone General Surgery [address] [place] [address] Norma Mendoza MD [address] [place] [address] Ankle Pain (le, foot pain) Social History [...] on filedocumented in this encounter Care Teams Intelligence Engineer Relationship Specialty Start Date End Date Sharon Vides PCP - General Internal Medicine 08/02/18 05/26/20 Brennan Burnett MD PCP - General Internal Medicine 05/27/20 12/07/21 Caitlyn Bowie MD [address] [place] [address] PCP - General Internal Medicine 12/08/21 Hayden Shah MD [address] [place] [address] Specialist Cardiovascular Disease 09/01/20 Pallavi Flood NP [address] [place] [address] Cardiology 09/01/20 documented as of this encounter
--- OUTSIDE RECORDS SUMMARY | 2025-04-23 03:12 | XMS_ITS | Encounter Summary ---
Author Organization [facility] Address [address] [place] [address] Care Team Providers Care J2Ee Application Developer Name Role Phone Sharon Vides Primary Care Provider Unava ilable Brennan Burnett MD Primary Care Provider Unavailab Hayden Montes MD Unavailable [phone] Pallavi Flood NP Unavailable [phone] Caitlyn Bowie MD Primary Care Provider Unava ilable Reason for Visit * Reason Onset Date Comments Provider Call Back 04/26/2019 Encounter Details Date Type Department Care Team Description 04/26/2019 Telephone Plastic Surgery [facility] [address] [place] [address] Landen Aaron DO Provider Call [...] . Called to get in with a wharfinger chief and stated needs to see surgeon first . documented in this encounter Plan of Treatment Not on file documented as of this encounter Visit Diagnoses Not on filedocumented in this encounter Care Teams J2Ee Application Developer Relationship Specialty Start Date End Date Sharon Vides PCP - General Internal Medicine 08/02/18 05/26/20 Brennan Burnett MD PCP - General Internal Medicine 05/27/20 12/07/21 Caitlyn Bowie MD [address] [place] [address] PCP - General Internal Medicine 12/08/21 Hayden Shah MD [address] [place] [address] Specialist Cardiovascular Disease 09/01/20 Pallavi Flood NP [address] [place] [address] Cardiology 09/01/20 documented as of this encounter
--- OUTSIDE RECORDS SUMMARY | 2025-04-23 03:12 | XMS_ITS | Encounter Summary ---
Author Organization [facility] Address [address] [place] [address] Care Team Providers Care Glass Furnace Tender Name Role Phone Victorino Martin MD Primary Care Provider Sharon Odonnell Primary Care Provider Brennan Castro MD Primary Care Provider UnavailHayden Fernandez MD Unavailable [phone] Pallavi Flood NP Unavailable [phone] Caitlyn Bowie MD Primary Care Provider Johnathon shaver Encounter Details Date Type Department Care Team Description 01/26/2018 [facility] Medical Records [address] [place] [address] Renetta Lugo Np Social History Tobacco Use [...] filedocumented in this encounter Care Teams Glass Furnace Tender Relationship Specialty Start Date End Date Victorino Martin MD PCP - General Internal Medicine 12/21/17 08/01/18 Sharon Vides PCP - General Internal Medicine 08/02/18 05/26/20 Brennan Burnett MD PCP - General Internal Medicine 05/27/20 12/07/21 Caitlyn Bowie MD [address] [place] [address] PCP - General Internal Medicine 12/08/21 Hayden Shah MD [address] [place] [address] Specialist Cardiovascular Disease 09/01/20 Pallavi Flood NP [address] [place] [id number] Cardiology 09/01/20 documented as of this encounter
--- OUTSIDE RECORDS SUMMARY | 2025-04-23 03:12 | XMS_ITS | Encounter Summary ---
Author Organization [facility] Address [address] [place] [address] Care Team Providers Care Diamond Selector Name Role Phone Brennan Burnett MD Primary Care Provider Unavailab Hayden Montes MD Unavailable [phone] Pallavi Flood NP Unavailable [phone] Caitlyn Bowie MD Primary Care Provider Unava ilable Encounter Details Date Type Department Care Team Description 08/25/2020 Branch Associate Report Medical Records [address] [place] [address] Abstract, Provider Social History Tobacco Use Types [...] on filedocumented in this encounter Care Teams Diamond Selector Relationship Specialty Start Date End Date Brennan Burnett MD PCP - General Internal Medicine 05/27/20 12/07/21 Caitlyn Bowie MD [address] [place] [address] PCP - General Internal Medicine 12/08/21 Hayden Shah MD [address] [place] [address] Specialist Cardiovascular Disease 09/01/20 Pallavi Flood NP [address] [place] [address] Cardiology 09/01/20 documented as of this encounter
--- OUTSIDE RECORDS SUMMARY | 2025-04-23 03:12 | XMS_ITS | Encounter Summary ---
Author Organization [facility] Address [address] [place] [address] Care Team Providers Care Manager Review Name Role Phone Victorino Martin MD Primary Care Provider Sharon Odonnell Primary Care Provider Brennan Castro MD Primary Care Provider Unavailab Hayden Montes MD Unavailable [phone] Pallavi Flood NP Unavailable [phone] Caitlyn Bowie MD Primary Care Provider Johnathon shaver Encounter Details Date Type Department Care Team Description 07/31/2018 Orders Only Pulmonology - [address] [place] [address] Henry Kelly MD Social History [...] filedocumented in this encounter Care Teams Manager Review Relationship Specialty Start Date End Date Victorino Martin MD PCP - General Internal Medicine 12/21/17 08/01/18 Sharon Vides PCP - General Internal Medicine 08/02/18 05/26/20 Brennan Burnett MD PCP - General Internal Medicine 05/27/20 12/07/21 Caitlyn Bowie MD [address] [place] [address] PCP - General Internal Medicine 12/08/21 Hayden Shah MD [address] [place], [place] [address]07 Specialist Cardiovascular Disease 09/01/20 Pallavi Flood NP [address] [place] [address] Cardiology 09/01/20 documented as of this encounter
--- OUTSIDE RECORDS SUMMARY | 2025-04-23 03:12 | XMS_ITS | Encounter Summary ---
Author Organization [facility] Address [address] [place] [address] Care Team Providers Care Congressional Aide Name Role Phone Victorino Martin MD Primary Care Provider Sharon Odonnell Primary Care Provider Brennan Castro MD Primary Care Provider Unavailab Hayden Montes MD Unavailable [phone] Pallavi Flood NP Unavailable [phone] Caitlyn Bowie MD Primary Care Provider Johnathon shaver Encounter Details Date Type Department Care Team Description 07/06/2018 Pt. Non Urgent Medic al Question Pulmonology - [address] [place] [address] Henry Kelly MD Social History [...] on filedocumented in this encounter Care Teams Congressional Aide Relationship Specialty Start Date End Date Victorino Martin MD PCP - General Internal Medicine 12/21/17 08/01/18 Sharon Vides PCP - General Internal Medicine 08/02/18 05/26/20 Brennan Burnett MD PCP - General Internal Medicine 05/27/20 12/07/21 Caitlyn Bowie MD [address] [place] [address] PCP - General Internal Medicine 12/08/21 Hayden Shah MD [address] [place] [address] Specialist Cardiovascular Disease 09/01/20 Pallavi Flood NP [address] [place] [address] Cardiology 09/01/20 documented as of this encounter
--- OUTSIDE RECORDS SUMMARY | 2025-04-23 03:12 | XMS_ITS | Encounter Summary ---
Author Organization [facility] Address [address] [place] [address] Care Team Providers Care Cushion Maker Name Role Phone Victorino Martin MD Primary Care Provider Sharon Odonnell Primary Care Provider Brennan Castro MD Primary Care Provider Unavailab Hayden Montes MD Unavailable Pallavi Flood NP Unavailable [phone] Caitlyn Bowie MD Primary Care Provider Johnathon shaver Encounter Details Date Type Department Care Team Description 07/12/2018 Refill Pulmonology [address] [place] [address] Henry Kelly MD Social History [...] on filedocumented in this encounter Care Teams Cushion Maker Relationship Specialty Start Date End Date Victorino Martin MD PCP - General Internal Medicine 12/21/17 08/01/18 Sharon Vides PCP - General Internal Medicine 08/02/18 05/26/20 Brennan Burnett MD PCP - General Internal Medicine 05/27/20 12/07/21 Caitlyn Bowie MD [address] [place] [address] PCP - General Internal Medicine 12/08/21 Hayden Shah MD [address] [place], [place] [id number] Specialist Cardiovascular Disease 09/01/20 Pallavi Flood NP [address] [place] [address] Cardiology 09/01/20 documented as of this encounter
--- OUTSIDE RECORDS SUMMARY | 2025-04-23 03:12 | XMS_ITS | Encounter Summary ---
Author Organization [facility] Address [address] [place] [address] Care Team Providers Care Milk Hauler Name Role Phone Cristofer Hope MD Primary Care Provider Maria GuadalupevaVictorino Negrete MD Primary Care Provider Unavaila Sharon Rios Primary Care Provider Unava ilable Brennan Burnett MD Primary Care Provider Unavailab Hayden Montes MD Unavailable [phone] Pallavi Flood NP Unavailable [phone] Caitlyn Bowie MD Primary Care Provider Unava ilable Reason for Visit * Reason Onset Date Comments Medication 10/26/2017 Encounter Details Date Type Department Care Team Description 10/26/2017 Telephone Pulmonology - [address] [place] [address] Leslie Caro NP Medication Social History [...] EDT Pharmacist Mat from [employer] [facility] said that they are not carrying Ephinephrine 0.3mg/0.30ml in the brand her insurance pays for he said to call [phone] [facility] [place] [id number] ifTfareed can expatiated this documented in this encounter Plan of Treatment Not on file documented as of this encounter Visit Diagnoses Not on filedocumented in this encounter Care Teams Milk Hauler Relationship Specialty Start Date End Date Cristofer Hope MD PCP - General Internal Medicine 05/16/17 12/20/17 Victorino Martin MD PCP - General Internal Medicine 12/21/17 08/01/18 Sharon Vides PCP - General Internal Medicine 08/02/18 05/26/20 Brennan Burnett MD PCP - General Internal Medicine 05/27/20 12/07/21 Caitlyn Bowie MD [address] [place] [address] PCP - General Internal Medicine 12/08/21 Hayden Shah MD [address] [place] [address] Specialist Cardiovascular Disease 09/01/20 Pallavi Flood NP [address] [place] [address] Cardiology 09/01/20 documented as of this encounter
--- OUTSIDE RECORDS SUMMARY | 2025-04-23 03:12 | XMS_ITS | Clinical Summary ---
Author Organization [facility] Address [address] [place] [address] Care Team Providers Care Milk Tanker Driver Name Role Phone Hayden Shah MD Unavailable [phone] Pallavi Flood NP Unavailable [phone] Caitlyn Bowie MD Primary Care Provider Unava [...] 20 mg as needed by her previous rn gyn which she has taken sporadically. I have asked her to take this daily to see if this improves her symptoms and she has a follow-up appointment with Dr. Shah on September 16 which she will keep. We also had a long conversation regarding the fact that she is seeing 3 different rn gyn for the same problems. We informed her [...] continues to see Dr. Avalos or her rn gyn at [facility] [...] Mx LLL resection, Chemo, RT, Cisplatin, Vinorelbine [id number] Obstructive sleep apnea syndrome 017 Overview: CPAP [...] 09/17/2015, 04/21/2014, Additional history exists Care Teams Milk Tanker Driver Relationship Specialty Start Date End Date Caitlyn Bowie MD [address] [place] [address] PCP - General Internal Medicine 12/08/21 Hayden Shah MD [address] [place] [address] Specialist Cardiovascular Disease 09/01/20 Pallavi Flood NP [address] [place] [address] 3315407 Cardiology 09/01/20
--- OUTSIDE RECORDS SUMMARY | 2025-04-23 03:13 | XMS_ITS | Encounter Summary ---
Author Organization [facility] Address [address] [place] [address] Care Team Providers Care Senior Qualitative Researcher Name Role Phone Sharon Vides Primary Care Provider Brennan Castro MD Primary Care Provider Unavailab Hayden Montes MD Unavailable [phone] Pallavi Flood NP Unavailable [phone] Caitlyn Bowie MD Primary Care Provider Johnathon shaver Encounter Details Date Type Department Care Team Description 09/05/2018 Night Triage Doc Medical Records [address] [place] [address] Abstract, Provider Social History Tobacco Use Types [...] filedocumented in this encounter Care Teams Senior Qualitative Researcher Relationship Specialty Start Date End Date Sharon Vides PCP - General Internal Medicine 08/02/18 05/26/20 Brennan Burnett MD PCP - General Internal Medicine 05/27/20 12/07/21 Caitlyn Bowie MD [address] [place] [address] PCP - General Internal Medicine 12/08/21 Hayden Shah MD [address] [place] [address] Specialist Cardiovascular Disease 09/01/20 Pallavi Flood NP [address] [place] [address] Cardiology 09/01/20 documented as of this encounter
--- OUTSIDE RECORDS SUMMARY | 2025-04-23 03:13 | XMS_ITS | Encounter Summary ---
Author Organization [facility] Address [address] [place] [address] Care Team Providers Care Machinist Outside Name Role Phone Sharon Vides Primary Care Provider Brennan Castro MD Primary Care Provider Unavailab Hayden Montes MD Unavailable [phone] Pallavi Flood NP Unavailable [phone] Caitlyn Bowie MD Primary Care Provider Johnathon shaver Encounter Details Date Type Department Care Team Description 08/28/2018 Marketing Manager Health Communications Report Medical Records [address] [place] [address] Abstract, Provider Social History Tobacco Use Types [...] on filedocumented in this encounter Care Teams Machinist Outside Relationship Specialty Start Date End Date Sharon Vides PCP - General Internal Medicine 08/02/18 05/26/20 Brennan Burnett MD PCP - General Internal Medicine 05/27/20 12/07/21 Caitlyn Bowie MD [address] [place] [address] PCP - General Internal Medicine 12/08/21 Hayden Shah MD [address] [place] [address] Specialist Cardiovascular Disease 09/01/20 Pallavi Flood NP [address] [place] [address] Cardiology 09/01/20 documented as of this encounter
--- OUTSIDE RECORDS SUMMARY | 2025-04-23 03:13 | XMS_ITS | Encounter Summary ---
Author Organization [facility] Address [address] [place] [address] Care Team Providers Care Manuscript Editor Name Role Phone Sharon Vides Primary Care Provider Brennan Castro MD Primary Care Provider Unavailab Hayden Montes MD Unavailable [phone] Pallavi Flood NP Unavailable [phone] Caitlyn Bowie MD Primary Care Provider Johnathon shaver Encounter Details Date Type Department Care Team Description 12/28/2018 Telephone Pulmonology - [address] [place] [address] Henry Kelly MD Social History [...] on filedocumented in this encounter Care Teams Manuscript Editor Relationship Specialty Start Date End Date Sharon Vides PCP - General Internal Medicine 08/02/18 05/26/20 Brennan Burnett MD PCP - General Internal Medicine 05/27/20 12/07/21 Caitlyn Bowie MD [address] [place] [address] PCP - General Internal Medicine 12/08/21 Hayden Shah MD [address] [place] [address] Specialist Cardiovascular Disease 09/01/20 Pallavi Flood NP [address] [place] [address] Cardiology 09/01/20 documented as of this encounter
--- OUTSIDE RECORDS SUMMARY | 2025-04-23 03:13 | XMS_ITS | Encounter Summary ---
Author Organization [facility] Address [address] [place] [address] Care Team Providers Care Uniform Designer Name Role Phone Sharon Vides Primary Care Provider Unava ilable Brennan Burnett MD Primary Care Provider Unavailab Hayden Montes MD Unavailable [phone] Pallavi Flood NP Unavailable [phone] Caitlyn Bowie MD Primary Care Provider Unava ilable Reason for Visit * Reason Onset Date Comments Pulmonary [facility] Encounter Details Date Type Department Care Team Description 09/21/2018 Telephone Pulmonology - [address] [place] [address] Henry Kelly MD Pulmonary Problem ([place]) Social History Tobacco Use [...] , OP notes and labs faxed to [facility]. * Telephone Encounter - Nasima Sr M.A. - 10/02/2018 11:57 AM EDT I called patient back and she has been scheduled with the [facility] for a PFT. * Telephone Encounter [...] her to a Dr Kerwin Menjivar in [place]. Please advise. * Telephone Encounter - Paloma [...] / Plan: [place] / Product Type: MEDICARE [id number] documented in this encounter Plan of Treatment Not on file documented as of this encounter Visit Diagnoses Not on filedocumented in this encounter Care Teams Uniform Designer Relationship Specialty Start Date End Date Sharon Vides PCP - General Internal Medicine 08/02/18 05/26/20 Brennan Burnett MD PCP - General Internal Medicine 05/27/20 12/07/21 Caitlyn Bowie MD [address] [place] [address] PCP - General Internal Medicine 12/08/21 Hayden Shah MD [address] [place] [address] Specialist Cardiovascular Disease 09/01/20 Pallavi Flood NP [address] [place] [address] Cardiology 09/01/20 documented as of this encounter
--- OUTSIDE RECORDS SUMMARY | 2025-04-23 03:13 | XMS_ITS | Encounter Summary ---
Author Organization [facility] Address [address] [place] [address] Care Team Providers Care Fur Ironer Name Role Phone Sharon Vides Primary Care Provider Brennan Castro MD Primary Care Provider Unavailab Hayden Montes MD Unavailable [phone] Pallavi Flood NP Unavailable [phone] Caitlyn Bowie MD Primary Care Provider Johnathon shaver Encounter Details Date Type Department Care Team Description 11/20/2018 Pt. Non Urgent Medic al Question Pulmonology - [place] [address] [facility] [address] [place] [address] Henry Kelly MD Social History [...] you ever get the pft result from [facility] (Dr. Menjivar)? If so did you request a new Bipap from [employer]? I hope you and your family had a good vacation. Fond regards, Jovana Malik documented in this encounter Plan of Treatment Not on file documented as of this encounter Visit Diagnoses Not on filedocumented in this encounter Care Teams Fur Ironer Relationship Specialty Start Date End Date Sharon Vides PCP - General Internal Medicine 08/02/18 05/26/20 Brennan Burnett MD PCP - General Internal Medicine 05/27/20 12/07/21 Caitlyn Bowie MD [address] [place] [address] PCP - General Internal Medicine 12/08/21 Hayden Shah MD [address] [place] [address] Specialist Cardiovascular Disease 09/01/20 Pallavi Flood NP [address] [place] [address] Cardiology 09/01/20 documented as of this encounter
--- OUTSIDE RECORDS SUMMARY | 2025-04-23 03:13 | XMS_ITS | Encounter Summary ---
Author Organization [facility] Address [address] [place] [address] Care Team Providers Care Customer Support Agent Name Role Phone Sharon Vides Primary Care Provider Brennan Castro MD Primary Care Provider Unavailab Hayden Montes MD Unavailable [phone] Pallavi Flood NP Unavailable [phone] Caitlyn Bowie MD Primary Care Provider Johnathon shaver Encounter Details Date Type Department Care Team Description 01/09/2019 Hospital Medical Records [address] [place] [address] Norma Mendoza MD [address] [place] [address] Social History Tobacco Use Types Packs/Day Years [...] on filedocumented in this encounter Care Teams Customer Support Agent Relationship Specialty Start Date End Date Sharon Vides PCP - General Internal Medicine 08/02/18 05/26/20 Brennan Burnett MD PCP - General Internal Medicine 05/27/20 12/07/21 Caitlyn Bowie MD [address] [place] [address] PCP - General Internal Medicine 12/08/21 Hayden Shah MD [address] [place] [address] Specialist Cardiovascular Disease 09/01/20 Pallavi Flood NP [address] [place] [address] 0378807 Cardiology 09/01/20 documented as of this encounter
--- OUTSIDE RECORDS SUMMARY | 2025-04-23 03:13 | XMS_ITS | Encounter Summary ---
Author Organization [facility] Address [address] [place] [address] Care Team Providers Care Fruit And Vegetable Inspector Name Role Phone Sharon Vides Primary Care Provider Unava ilable Brennan Burnett MD Primary Care Provider Unavailab Hayden Montes MD Unavailable [phone] Pallavi Flood NP Unavailable [phone] Caitlyn Bowie MD Primary Care Provider Unava ilable Reason for Visit * Reason Onset Date Comments hospital follow up 12/17/2018 records Encounter Details Date Type Department Care Team Description 12/17/2018 Telephone Pulmonology [facility] [address] [facility] [address] [place] [address] Henry Kelly MD hospital follow [...] - 12/17/2018 1:48 PM EDT Medical Records: [phone] Ron (patient services) [phone] * Telephone Encounter - Kelly Gallo M.A. [...] on filedocumented in this encounter Care Teams Fruit And Vegetable Inspector Relationship Specialty Start Date End Date Sharon Vides PCP - General Internal Medicine 08/02/18 05/26/20 Brennan Burnett MD PCP - General Internal Medicine 05/27/20 12/07/21 Caitlyn Bowie MD [address] [place] [address] PCP - General Internal Medicine 12/08/21 Hayden Shah MD [address] [place], [place] [address] Specialist Cardiovascular Disease 09/01/20 Pallavi Flood NP [address] [place] [address] Cardiology 09/01/20 documented as of this encounter
--- OUTSIDE RECORDS SUMMARY | 2025-04-23 03:13 | XMS_ITS | Encounter Summary ---
Author Organization [facility] Address [address] [place] [address] Care Team Providers Care Rail Transportation Tabeler Name Role Phone Sharon Vides Primary Care Provider Brennan Castro MD Primary Care Provider Unavailab Hayden Montes MD Unavailable [phone] Pallavi Flood NP Unavailable [phone] Caitlyn Bowie MD Primary Care Provider Johnathon shaver Encounter Details Date Type Department Care Team Description 10/01/2018 Orders Only Pulmonology - [address] [place] [address] Henry Kelly MD Mixed simple [...] bronchitis documented in this encounter Care Teams Rail Transportation Tabeler Relationship Specialty Start Date End Date Sharon Vides PCP - General Internal Medicine 08/02/18 05/26/20 Brennan Burnett MD PCP - General Internal Medicine 05/27/20 12/07/21 Caitlyn Bowie MD [address] [place] [address] PCP - General Internal Medicine 12/08/21 Hayden Shah MD [address] [place] [address] Specialist Cardiovascular Disease 09/01/20 Pallavi Flood NP [address] [place] [address] Cardiology 09/01/20 documented as of this encounter
--- OUTSIDE RECORDS SUMMARY | 2025-04-23 03:13 | XMS_ITS | Encounter Summary ---
Author Organization [facility] Address [address] [place] [address] Care Team Providers Care Pumpman Name Role Phone Sharon Vides Primary Care Provider Brennan Castro MD Primary Care Provider Unavailab Hayden Montes MD Unavailable Pallavi Flood NP Unavailable [phone] Caitlyn Bowie MD Primary Care Provider Johnathon shaver Encounter Details Date Type Department Care Team Description 02/07/2019 [facility] Medical Records [address] [place] [address] Landen Aaron DO Social History Tobacco Use [...] on filedocumented in this encounter Care Teams Pumpman Relationship Specialty Start Date End Date Sharon Vides PCP - General Internal Medicine 08/02/18 05/26/20 Brennan Burnett MD PCP - General Internal Medicine 05/27/20 12/07/21 Caitlyn Bowie MD [address] [place] [address] PCP - General Internal Medicine 12/08/21 Hayden Shah MD [address] [place], [place] [phone] Specialist Cardiovascular Disease 09/01/20 Pallavi Flood NP [address] [place], [place] [address] Cardiology 09/01/20 documented as of this encounter
--- OUTSIDE RECORDS SUMMARY | 2025-04-23 03:13 | XMS_ITS | Encounter Summary ---
Author Organization [facility] Address [address] [place] [address] Care Team Providers Care Sisal Operator Name Role Phone Sharon Vides Primary Care Provider Brennan Castro MD Primary Care Provider Unavailab Hayden Montes MD Unavailable [phone] Pallavi Flood NP Unavailable [phone] Caitlyn Bowie MD Primary Care Provider Johnathon shaver Encounter Details Date Type Department Care Team Description 11/28/2018 Orders Only Pulmonology - [address] [place] [address] Henry Kelly MD Social History [...] on filedocumented in this encounter Care Teams Sisal Operator Relationship Specialty Start Date End Date Sharon Vides PCP - General Internal Medicine 08/02/18 05/26/20 Brennan Burnett MD PCP - General Internal Medicine 05/27/20 12/07/21 Caitlyn Bowie MD [address] [place] [address] PCP - General Internal Medicine 12/08/21 Hayden Shah MD [address] [place], [place] [address] Specialist Cardiovascular Disease 09/01/20 Pallavi Flood NP [address] [place] [address] Cardiology 09/01/20 documented as of this encounter
--- OUTSIDE RECORDS SUMMARY | 2025-04-23 03:13 | XMS_ITS | Encounter Summary ---
Author Organization [facility] Address [address] [place] [address] Care Team Providers Care Automatic Mold Sander Name Role Phone Brennan Burnett MD Primary Care Provider Unavailab Hayden Montes MD Unavailable [phone] Pallavi Flood NP Unavailable [phone] Caitlyn Bowie MD Primary Care Provider Unava ilable Encounter Details Date Type Department Care Team Description 09/30/2020 [facility] Medical Records [address] [place] [address] Social History Tobacco Use Types Packs/Day Years [...] on filedocumented in this encounter Care Teams Automatic Mold Sander Relationship Specialty Start Date End Date Brennan Burnett MD PCP - General Internal Medicine 05/27/20 12/07/21 Caitlyn Bowie MD [address] [place] [address] PCP - General Internal Medicine 12/08/21 Hayden Shah MD [address] [place] [address] Specialist Cardiovascular Disease 09/01/20 Pallavi Flood NP [address] [place] [address] Cardiology 09/01/20 documented as of this encounter
--- OUTSIDE RECORDS SUMMARY | 2025-04-23 03:13 | XMS_ITS | Data Portability ---
Author Organization [place] [facility] Address [address] [place] [address] Care Team Providers Care Livestock Ranch Hand Name Role Phone DEVENDRA EVELIN Primary Care Provider SHANTI YBARRA OTHER [phone] Assessment Encounter Date Assessment Date Assessment LastModified [...] 911 activated Plan/Discussion: EMS handoff given to [facility] In order to obtain further information and compare any laboratory results/values, I have accessed old patient records. This information was pertinent in my medical decision making today. [email or web address] Not available 03/14/2021 13:20:46 07/18/2021 07/18/2021 Overview/History [...] as of yet. 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 This [...] after care of this [facility]. Time On Scene with [...] noting blood on her pillow approximately 3 upper skagit when she woke this morning. She has [...] after care of this patient according to [facility]'s infection prevention protocols. [email or web address] Not available 12/29/2021 14:43:37 Plan of Treatment Reminders Order Date Submit Date Provider Last Modified By Organization Details Last Modified Time Details Appointments None recorded. Lab None recorded. Referral None recorded. Procedures None recorded. Surgeries None recorded. Imaging None recorded. Medication Orders docusate sodium 100 mg capsule 2021 022 lnovia [id number], [address], [place], [address], 19:28:14 Patient TargetsNo targets recorded. Patient Instructions Encounter Date Encounter Id Patient Instructions Last Modified By Organization Details Last Modified Time 03/14/2021 [id number] Thank you for yo ur visit with [facility] today. You were seen today for abdominal [...] in your condition between 8am-10pm, please call [facility] at [phone] to help navigate your care. [email or web address] Not available 03/14/2021 12:46:32 10/18/2021 [id number] It was great to see you today! Thank you for letting [facility] assist you in your medical needs [...] follow up with your PCP [facility]. Please present to the [...] 1.2 0.9-1. 2 Not Available [facility] [address], [place], [address], 02/11/2021 16:58:14 02/12/20 21 02/11/2021 , sylvia vance lower extre mity No observ ation record ed. [address] (Imaging) [address] [place], [address], 02/12/2021 08:19:41 Result Notes None recorded. Problems Name Problem SNOMED Code Status Onset Date Resolution Date Notes Provider Name and Address Organization Details Recorded Time Chronic obstructive pulmonary disease 20321103 Active 2018 ARCELIA PATELALON WINSTON [address], [place], [address], [place] [facility] 9 12:59:21 Problem Notes None recorded. Procedures Surgical History Date Name Laterality Status Provider Name and Address Organization Details Recorded Time Total Hysterectomy completed Cristine Sidhu, ALON [address], [place], [address], [place] [facility] 10/18/2021 19:39:45 lobectomy of lung completed Cristine frazier, PARTS RUNNER [address], [place], [address], [place] [facility] 10/18/2021 19:40:05 Remove tonsils and adenoids completed Cristine Sidhu, ALON [address], [place], [address], [place] [facility] 10/18/2021 19:40:22 Imaging Results None recorded. Procedure Notes None recorded. Medical Equipment None Reported. Allergies Allergen ID Allergen Name Allergen Category Reaction Reaction Severity Criticality Documentation Date Start Date Code Code System Note Provider Name and Address Organization Details Recorded Time 44023 Product containin g penicilli n (product) medicatio n Not available Not available Not available 06/15/2019 04207 8001 SNOMED ARCELIA AMANDAALON WINSTON [address], [place], [address], [place] [facility] 9 12:56:48 79864 Substance with sulfonami de structure and antibacte rial mechanism of action (substanc e) medicatio n Not available Not available Not available 06/15/2019 80885 8003 SNOMED ARCELIA AMANDAALON WINSTON [address], [place], [address], [place] [facility] 9 12:56:54 05147 Voltaren medicatio n Not available Not available Not available 06/15/201903944 6 RxNorm ARCELIA FAJARDO , PARTS RUNNER [address], [place], [address], [place] [facility] 9 12:57:01 12974 Iodinated contrast media (substanc e) medicatio n Not available Not available Not available 06/15/2019 51567 2004 SNOMED ARCELIA FAJARDO , PARTS RUNNER [address], [place], [address], [place] [facility] 9 12:57:07 83958 vancomyci n medicatio n Not available Not available Not available 06/15/2019 48853 RxNorm ARCELIA FAJARDO , PARTS RUNNER [address], [place], [address], [place] [facility] 9 12:57:14 93184 gentamici n medicatio n Not available Not available Not available 06/15/2019 25272 50 RxNorm ARCELIA FAJARDO , PARTS [employer]NER [address], [place], [address], [place] [facility] 9 12:57:20 78570 Biaxin medicatio n Not available Not available Not available 06/15/201900644 9 RxNorm ARCELIA FAJARDO , PARTS [employer]NER [address], [place], [address], [place] [facility] 9 12:57:27 73138 Avelox medicatio n Not available Not available Not available 06/15/2019 96307 6 RxNorm ARCELIA FAJARDO , PARTS [employer]NER [address], [place], [address], [place] [facility] 9 12:57:34 71698 erythromy jaylon medicatio n Not available Not available Not available 06/15/2019 4053 RxNorm ARCELIA FAJARDO , [employer]S [employer]NER [address], [place], [address], [place] [facility] 9 12:57:41 34002 Zithromax medicatio n Not available Not available Not available 06/15/2019 49079 4 RxNorm ARCELIA FAJARDO , [employer]S [employer]NER [address], [place], [address], [place] [facility] 9 12:57:51 53585 Levaquin medicatio n Not available Not available Not available 06/15/2019 30177 2 RxNorm ARCELIA FAJARDO , [employer]NER [address], [place], [address], [place] [facility] 9 12:58:02 42080 Cipro medicatio n Not available Not available Not available 06/15/2019 04847 3 RxNorm ARCELIA FAJARDO , PARTS [employer]NER [address], [place], [address], [place] [facility] 9 12:58:08 89427 morphine medicatio n Not available Not available Not available 06/15/2019 7052 RxNorm ARCELIA FAJARDO , PARTS [employer]NER [address], [place], [address], [place] [facility] 9 12:58:20 78660 procaine hydrochlo ride medicatio n Not available Not available Not available 06/15/2019 94444 8 RxNorm ARCELIA FAJARDO , PARTS RUNNER [address], [place], [address], [place] [facility] 9 12:58:42 80257 barium sulfate medicatio n Not available Not available Not available 06/15/2019 1331 RxNorm ARCELIA FAJARDO , PARTS RUNNER [address], [place], [address], [place] [facility] 9 12:58:54 55563 Gastrogra fin medicatio n Not available Not available Not available 06/15/2019 52650 5 RxNorm ARCELIA FAJARDO , PARTS RUNNER [address], [place], [address], [place] [facility] 9 12:59:01 10780 Flagyl medicatio n Not available Not available Not available 06/15/2019 36701 6 RxNorm ARCELIA FAJARDO , PARTS RUNNER [address], [place], [place], [address], [place] [facility] 9 12:59:06 06744 shrimp allergeni c extract food Not available Not available Not available 06/15/2019 66272 2 RxNorm ARCELIA FAJARDO , PARTS RUNNER [address], [place], [place], [address], [place] [facility] [...] /min 98.9 [degF] 112/58 mm[Hg] Not Available [facility] 2 11:16:01 Date Recorded Heart rate Oxygen saturation Oxygen saturation in Arterial blood by Pulse oximetry Respiratory rate Body temperature Systolic And Diastolic Systolic And Diastolic Provider Name and Address Organization Details Last Updated DateTime 2 80 /min 96 % 96 % 18 /min 98.9 [degF] 142/66 mm[Hg] 128/60 mm[Hg] Not Available [facility] 2 20:16:17 Date Recorded Oxygen saturation Oxygen saturation in Arterial blood by Pulse oximetry Heart rate Respiratory rate Body temperature Systolic And Diastolic Provider Name and Address Organization Details Last Updated DateTime 2 96 % 96 % 77 /min 18 /min 98.6 [degF] 122/60 mm[Hg] Not Available [facility] 2 13:41:00 Date Recorded Heart rate Respiratory rate Oxygen saturation Oxygen saturation in Arterial blood by Pulse oximetry Body temperature Systolic And Diastolic Provider Name and Address Organization Details Last Updated DateTime 1 76 /min 16 /min 97 % 97 % 99 [degF] 114/62 mm[Hg] Not Available [facility] 1 12:53:01 Social History Question Answer Notes LastModified by Organizat ion Details LastModified Time Tobacco Smoking Status Never Smoker ARCELIA FAJARDO, ALON [address] [place], [address], [place] [facility] 06/15/2019 13:05:25 Do You [...] Diagnosis SNOMED-CT Code Diagnosis ICD10 Code Diagnosis IMO Codes Diagnosis Note [id number] ARCELIA FAJARDO NP [facility] [address] [facility] [place] [address] 06/15/2019 12:54:37 06/17/2019 13:06:33 Excoriation of skin 761884206 T14.8XXA [id number] JANIS GILBERT NP [facility] [address] [facility] [place] [address] 11/13/2019 16:03:00 11/18/2019 14:53:37 Pain in lower limb 05050931 M79.661 [id number] ARCELIA FAJARDO NP [facility] [address] [facility] [place] [address] 03/14/2020 20:02:43 03/18/2020 21:30:46 Traumatic hematoma 831397328 T14.8XXA Long-term current use of anticoagulant 612844216 Z79.01 Pain in left foot 921828 6500 05572 M79.672 [id number] EMELIA TOMPKINS [facility] [address] [facility] [place] [address] 03/20/2020 12:50:59 03/23/2020 17:54:28 Contusion of lower leg 83273408 S80.10XA Swelling of lower leg 44 4153556 R22.42 [id number] JAMES GARCIA NP [facility] [address] [place] [address] 09/29/2020 11:41:21 09/29/2020 12:38:57 Pain of intercostal space 397994200 R07.82 Exposure t o communicable disease 629387944 Z20.822 [id number] Waleska Matos NP [facility] [address] [place] [address] 02/11/2021 16:34:32 02/12/2021 11:08:44 Hematoma of lower leg 169866077 S80.11XA [id number] JAMES GARCIA NP [facility] [address] [facility] [place] [address] 03/14/2021 12:45:30 03/19/2021 14:09:43 Abdominal pain 55920280 R10.9 [id number] EMELIA Alfonso [facility] [address] [facility] [place] [address] 07/18/2021 10:56:56 07/22/2021 23:43:22 Constipation 29868125 K59.00 Left lower quadrant pain 537368126 R10.32 [id number] Cristine Sidhu NP [facility] [address] [facility] [place] [address] 10/18/2021 19:17:00 11/10/2021 16:33:03 Left sided abdominal pain 820725619 R10.9 Hematoma of lower leg 44 4311886 S80.10XA Long-term current use of anticoagulant 384207225 Z79.01 [id number] Cristine Sidhu NP [facility] [address] [facility] [address] 12/29/2021 13:36:24 12/30/2021 10:20:27 Blood coagulation disorder 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 D68.61 D68.2 [id number] Olivia Goldberg NP [facility] [address] [facility] [address] 01/18/2023 14:00:39 01/18/2023 15:01:49 Health Concerns Section Related Observation LastModified by Organization Detai ls LastModified Time None Recorded Concern Status LastModified by Organization Details LastModified Time None Recorded Advance Directives Directive Y: Payers Insurance Date Sequence Insurance Name Policy Number Policy Pettit Covered Member ID Pettit Member ID Guarantor Name 01/18/2023 2 [place] [id number] Jovana Malik [id number] Jovana Malik 10/18/2021 1 *SELF PAY* Jovana Malik [id number] Jovana Malik 10/18/2021 2 [place] Jovana Malik [id number] Jovana Steinino 01/17/2023 2 [place] [id number] Jovana Malik [id number] Jovana Malik 10/18/2021 1 MEDICARE B-[place]: [facility] Jovana Malik [id number] Jovana Malik 01/18/2023 1 [place] [facility] Jovana Malik [id number] Jovana Malik Notes Date Note Type Note Provider Name and Address Organization Details Recorded Time 1 text/html General HPI Template - DHReported by Patient This is a 75-year-old female, known to [employer], who calls with concerns for severe abdominal [...] decreased appetite and fair fluid intake. JAMES GARCIA, ALON [address], [place], [address], [place] [facility] 03/14/2021 13:21:32 2 text/html 76 YO F [...] No other asscociated sx's. EMELIA Ni [address], [place], [address], [place] [facility] 07/18/2021 12:04:00 2 text/html [...] evaluated. Cristine Sidhu NP [address], [place], [address], [place] [facility] 11/09/2021 02:11:05 2 text/html [...] supernatural. Cristine Sidhu NP [address], [place], [address], [place] [facility] 12/29/2021 14:43:53 3 text/html pt did not answer, visit canceled Olivia Goldberg NP [address], [place], [address], [place] [facility] 01/18/2023 19:34:36 OBGyn Episode No OBEpisode recorded.
--- OUTSIDE RECORDS SUMMARY | 2025-04-23 03:13 | XMS_ITS | Encounter Summary ---
Author Organization [facility] Address [address] [place] [address] Care Team Providers Care Residential Tech Name Role Phone Sharon Vides Primary Care Provider Brennan Castro MD Primary Care Provider Unavailab Hayden Montes MD Unavailable [phone] Pallavi Flood NP Unavailable [phone] Caitlyn Bowie MD Primary Care Provider Johnahton shaver Encounter Details Date Type Department Care Team Description 11/06/2018 Cloth Spreader Screen Printing Report Medical Records [address] [place] [address] Abstract, Provider Social History Tobacco Use Types [...] on filedocumented in this encounter Care Teams Residential Tech Relationship Specialty Start Date End Date Sharon Vides PCP - General Internal Medicine 08/02/18 05/26/20 Brennan Burnett MD PCP - General Internal Medicine 05/27/20 12/07/21 Caitlyn Bowie MD [address] [place] [address] PCP - General Internal Medicine 12/08/21 Hayden Shah MD [address] [place] [address] Specialist Cardiovascular Disease 09/01/20 Pallavi Flood NP [address] [place] [address] Cardiology 09/01/20 documented as of this encounter
--- OUTSIDE RECORDS SUMMARY | 2025-04-23 03:13 | XMS_ITS | Encounter Summary ---
Author Organization [facility] Address [address] [place] [address] Care Team Providers Care Member Services Coordinator Name Role Phone Sharon Vides Primary Care Provider Unava ilable Brennan Burnett MD Primary Care Provider Unavailab Hayden Montes MD Unavailable [phone] Pallavi Flood NP Unavailable [phone] Caitlyn Bowie MD Primary Care Provider Unava ilable Reason for Visit * Reason Onset Date Comments TEST RESULTS 12/07/2018 XRAY OF LUNGS Encounter Details Date Type Department Care Team Description 12/07/2018 Telephone Pulmonology - [place] [address] [facility] [address] [place] [address] Andre Benites PA-C [address] [facility] [address] [place] [address] TEST RESULTS (XRAY OF LUNGS) Social History [...] with x-ray results? * Telephone Encounter - Vla Luciano - 12/07/2018 4:28 PM EDT Patient [...] on filedocumented in this encounter Care Teams Member Services Coordinator Relationship Specialty Start Date End Date Sharon Vides PCP - General Internal Medicine 08/02/18 05/26/20 Brennan Burnett MD PCP - General Internal Medicine 05/27/20 12/07/21 Caitlyn Bowie MD [address] [place] [address] PCP - General Internal Medicine 12/08/21 Hayden Shah MD [address] [place] [address] Specialist Cardiovascular Disease 09/01/20 Pallavi Flood NP [address] [place] [address] Cardiology 09/01/20 documented as of this encounter
--- OUTSIDE RECORDS SUMMARY | 2025-04-23 03:13 | XMS_ITS | Encounter Summary ---
Author Organization [facility] Address [address] [place] [address] Care Team Providers Care Client Delivery Specialist Name Role Phone Sharon Vides Primary Care Provider Brennan Castro MD Primary Care Provider Unavailab Hayden Montes MD Unavailable [phone] Pallavi Flood NP Unavailable [phone] Caitlyn Bowie MD Primary Care Provider Johnathon shaver Encounter Details Date Type Department Care Team Description 02/05/2019 [facility] Medical Records [address] [place] [address] Landen Aaron DO Social History Tobacco Use [...] on filedocumented in this encounter Care Teams Client Delivery Specialist Relationship Specialty Start Date End Date Sharon Vides PCP - General Internal Medicine 08/02/18 05/26/20 Brennan Burnett MD PCP - General Internal Medicine 05/27/20 12/07/21 Caitlyn Bowie MD [address] [place] [address] PCP - General Internal Medicine 12/08/21 Hayden Shah MD [address] [place], [place] [address] Specialist Cardiovascular Disease 09/01/20 Pallavi Flood NP [address] [place], [place] [address] Cardiology 09/01/20 documented as of this encounter
--- OUTSIDE RECORDS SUMMARY | 2025-04-23 03:13 | XMS_ITS | Encounter Summary ---
Author Organization [facility] Address [address] [place] [address] Care Team Providers Care Wood Tank Builder Name Role Phone Sharon Vides Primary Care Provider Brennan Castro MD Primary Care Provider Unavailab Hayden Montes MD Unavailable [phone] Pallavi Flood NP Unavailable [phone] Caitlyn Bowie MD Primary Care Provider Johnathon shaver Encounter Details Date Type Department Care Team Description 12/16/2018 [facility] Medical Records [address] [place] [address] Abstract, Provider Social History Tobacco Use Types [...] on filedocumented in this encounter Care Teams Wood Tank Builder Relationship Specialty Start Date End Date Sharon Vides PCP - General Internal Medicine 08/02/18 05/26/20 Brennan Burnett MD PCP - General Internal Medicine 05/27/20 12/07/21 Caitlyn Bowie MD [address] [place] [address] PCP - General Internal Medicine 12/08/21 Hayden Shah MD [address] [place] [address] Specialist Cardiovascular Disease 09/01/20 Pallavi Flood NP [address] [place] [address] Cardiology 09/01/20 documented as of this encounter
--- NOTE | 2025-04-23 03:41 | P.HPHOSP_ITS ---
History of Present Illness Date of Service: 04/23/25 Attending physician on admission: Terrence Darden Chief Complaint: dyspnea Patient is a 80-year-old female with extensive past medical history to include PE/DVT on Coumadin with antiphospholipid syndrome, mitral clip, HFpEF grade 2 moderate diastolic heart failure, pericardial effusion, Lung CA with lobectomy currently in remission, COPD/from secondhand smoke exposure on 2 L during the day and 2.5 L at night, KANDY on CPAP, anxiety, hypothyroidism, hyperlipidemia, insomnia emergency department BIBA for upper chest pressure that radiated through the chest and shoulders that is started while patient was cooking last evening. Patient denies any actual chest pain but reports more pressure and notable shortness of breath. Patient remained on 2 L nasal cannula which is her baseline oxygen use. Patient denies any falls, near-syncope or syncopal episodes related to these symptoms. Patient currently denies any chest pain, shortness of breath at rest and feels improved since arrival. Workup in the ED included chest x-ray which noted stable cardiomegaly with small left pleural effusion and CHF findings including pulmonary vascular congestion and pulmonary edema which were considered stable for this patient based on comparison. Troponins were negative x2. BNP 11 26. No leukocytosis and no blood loss. Patient received Lasix in the ED. Patient also received 1 dose of Valium to help with sleep and anxiety. Viral testing for COVID RSV and flu were all negative. Request for admission for CHF exacerbation and patient agreeable to admission. Review of Systems 2 Review of Systems: Patient currently denies any chest pain, chest pressure or shortness of breath at rest. Patient states her anxiety is controlled. Patient denies any abdominal pain, nausea or vomiting. Patient denies any fever, chills or night sweats. Patient denies a productive cough. [facility] Medical History Chest pain Chest pain Ankle pain Chronic hypercapnic respiratory failure KANDY treated with BiPAP COPD (chronic obstructive pulmonary disease) Open wound Warfarin anticoagulation Complex sleep apnea syndrome Leg pain Anemia Tachycardia DVT (deep venous thrombosis) Compression fracture of body of thoracic vertebra ASD (atrial septal defect) Pleuritic chest pain History of COVID-19 Chronic anticoagulation Hypothyroidism GERD (gastroesophageal reflux disease) Hyperlipidemia Hypertension Factor 5 Leiden mutation, heterozygous History of non-ST elevation myocardial infarction (NSTEMI) Hypoxia Anxiety PTSD (post-traumatic stress disorder) Hemoptysis Dyspnea Tracheobronchitis CLARA positive Diverticulitis Allergic bronchitis (HFpEF) heart failure with preserved ejection fraction Subarachnoid bleed Insomnia Anti-phospholipid antibody syndrome Hypogammaglobulinemia Chronic respiratory failure Arterial insufficiency of lower extremity Complex regional pain syndrome i of right lower limb Post herpetic neuralgia Pulmonary hypertension Pericardial effusion Pulmonary emboli Pleural effusion Radiation fibrosis of lung Pneumonitis Pulmonary nodules Lung cancer Cognitive capacity: Alert and orientated x3 Functional capacity: independent ambulation Patient : No Family History Sister No problems noted. Mother Cardiovascular disease Daughter Tachycardia Other KANDY (obstructive sleep apnea) Surgical History History of colonoscopy History of lung surgery History of tonsillectomy History of hysterectomy S/P mitral valve clip implantation History of cardiac cath Social History Household Members: Other Housing: [facility] Do you presently have visiting nurse or other home services: Yes (at home had FORENSIC PHOTOGRAPHER that came to visit her) Alcohol intake: never Comment: stand by assist with ambulation Patient Tobacco Use Status: Never used Tobacco Smoked in Last 30 Days: No Second Hand Smoke Exposure: No Use of substances other than those prescribed or required for medical reasons: No Advance Directives: Yes Advance Directives on File: Yes Advance Directives Date on File: 06/15/22 Patient : No service: No Current occupational status: retired Ebola Risk: Travel/Contact With Anyone From Affected Area/s: No Has Patient Experienced Ebola Symptoms: No Meds Allergies Allergy/AdvReac Type Severity Reaction Status Date / Time morphine Allergy Severe Itching Verified 04/22/25 20:16 avocado (AVOCADO) Allergy Mild ITCHY Verified 04/22/25 20:16 THROAT, RASH azithromycin (AZITHROMYCIN) Allergy Mild ITCHY Verified 04/22/25 20:16 THROAT, RASH barium iodide (BARIUM IODIDE) Allergy Mild ITCHY Verified 04/22/25 20:16 THROAT, RASH barium sulfate Allergy Mild Itch Verified 04/22/25 20:16 bee pollen (BEE STINGS) Allergy Mild ITCHY Verified 04/22/25 20:16 THROAT, RASH ciprofloxacin (From CIPRO) Allergy Mild ITCHY Verified 04/22/25 20:16 THROAT, RASH clarithromycin (From BIAXIN) Allergy Mild ITCHY Verified 04/22/25 20:16 THROAT, RASH diatrizoate meglumine (From Allergy Mild ITCHY Verified 04/22/25 20:16 GASTROGRAFIN) THROAT, RASH diatrizoate sodium (From Allergy Mild ITCHY Verified 04/22/25 20:16 GASTROGRAFIN) THROAT, RASH diclofenac (From VOLTAREN) Allergy Mild ITCHY Verified 04/22/25 20:16 THROAT, RASH erythromycin base Allergy Mild ITCHY Verified 04/22/25 20:16 (ERYTHROMYCIN BASE) THROAT, RASH gentamicin (GENTAMICIN) Allergy Mild ITCHY Verified 04/22/25 20:16 THROAT, RASH Iodinated Contrast Media Allergy Mild ITCHY Verified 04/22/25 20:16 (IVP DYE) THROAT, RASH levofloxacin (From LEVAQUIN) Allergy Mild ITCHY Verified 04/22/25 20:16 THROAT, RASH metronidazole (From FLAGYL) Allergy Mild ITCHY Verified 04/22/25 20:16 THROAT, RASH moxifloxacin (From AVELOX) Allergy Mild ITCHY Verified 04/22/25 20:16 THROAT, RASH Penicillins (PENICILLINS) Allergy Mild ITCHY Verified 04/22/25 20:16 THROAT, RASH shrimp (SHRIMP) Allergy Mild ITCHY Verified 04/22/25 20:16 THROAT, RASH Sulfa (Sulfonamide Allergy Mild ITCHY Verified 04/22/25 20:16 Antibiotics) (SULFA THROAT, (SULFONAMIDE ANTIBIOTICS)) RASH vancomycin (VANCOMYCIN) Allergy Mild ITCHY Verified 04/22/25 20:16 THROAT, RASH clindamycin AdvReac Intermediate Unknown Verified 04/22/25 20:16 Home Medications ?Medication ?Instructions ?Recorded ?Confirmed ?Last Taken ?Type CPAP (CPAP Machine/Device) 06/30/22 11/11/24 Unknown History Oxygen Home Use 06/30/22 11/11/24 Unknown H istory nebulizers 06/30/22 11/11/24 Unknown H istory epinephrine 0.3 mg/0.3 mL 0.3 mg IM USEASDIRECTD PRN 0 07/14/22 03/26/25 Unknown History injection, auto-injector Allergic Reaction levothyroxine 25 mcg tablet 50 mcg PO SUSA@0600 03/26/25 01/15/25 History (Synthroid) docusate sodium 100 mg capsule 100 mg PO BID 01/14/24 03/26/25 01/15/25 History diazepam 5 mg tablet 2.5 mg PO BID PRN anxiety 03/26/25 1 Week Ago History ~01/09/25 ferrous gluconate 324 mg (38 mg 324 mg PO QAM 01/16/25 03/26/25 01/15/25 History iron) tablet folic acid 1 mg tablet 1 mg PO DAILY 01/16/2503/2601/15/25 History levothyroxine 25 mcg tablet 25 mcg PO MOTUWETHFR@0600 01/16/25 03/26/25 01/15/25 History (Synthroid) rosuvastatin 10 mg tablet 10 mg PO MOWEFR@2100 5 03/26/25 01/13/25 History warfarin 1 mg tablet (Jantoven) mg PO DAILY 01/16/25 0 03/26/25 Unknown History brimonidine 0.2 % eye drops 1 drp ophthalmic (eye) BID 03/24/25 03/26/25 Unknown History Physical Exam 2 Vital Signs and Narrative: Vital Signs: Last Vital Signs Temp 98.4 F 04/23/25 01:31 Pulse 96 04/23/25 01:31 Resp 22 H 04/23/25 01:31 BP 140/56 H 04/23/25 01:31 Pulse Ox 100 04/23/25 01:31 O2 Del Method Nasal Cannula 04/23/25 01:31 O2 Flow Rate 2 04/23/25 01:31 Oxygen Flow Rate 2 04/22/25 20:11 BMI result Body Mass Index 23.7 Alert and orientated X3, able to give good history. Neuro: CN II-X11 intact, no deficits, visual acuity intact EYES: PERRLA, EOM intact, sclerae nonicteric, conjunctiva pink ENT: hearing intact, no issues with swallowing, uvula midline, lips moist, nares patent no epistaxis Cardiac: S1 S2 RRR, no murmur, no JVD, mild edema in Lower ext Pulmonary: lungs diminished bilaterally Abdominal: BS active in all 4 quadrants, no guarding, tenderness, rebounding MSK: strength 4/5 upper and lower extremities : no CVA tenderness no bladder distension Extremities: mild edema in lower extremities, PT and DP pulses palpable +2 Psych: mood stable, judgement and insight good Skin: Noted chronic discoloration bilateral lower extremities, no new rashes or lesions Results Labs 04/22/25 20:49 04/22/25 20:49 Labs: Laboratory Results - last 24 hr 04/22/25 20:49 MCV 103.2 H MCH 33.0 MCHC 32.0 RDW 13.9 Plt Count 184 MPV 10.7 Immature Gran % (Auto) 1.4 H Neut % (Auto) 76.8 H Lymph % (Auto) 11.3 L Morrow % (Auto) 8.8 Eos % (Auto) 1.1 Baso % (Auto) 0.6 Lymph # (Auto) 1.2 Morrow # (Auto) 1.0 Eos # (Auto) 0.1 Baso # (Auto) 0.1 Abs Immat Gran (auto) 0.15 H Absolute Neuts (auto) 8.3 Absolute Nucleated RBC 0.000 Nucleated RBC % (auto) 0.0 Anion Gap 12 Estim Creat Clear Calc 47.2 Estimated GFR > 60 Random Glucose 100 Calcium 9.8 Magnesium 2.5 Troponin I High Sens 15.0 NT-Pro-B Natriuret Pep 1126.0 H Influenza Type A (PCR) NEGATIVE Influenza Type B (PCR) NEGATIVE RSV RNA Qual (PCR) NEGATIVE SARS-CoV-2 RNA (RT-PCR) NEGATIVE ECG Attestation: I personally reviewed and interpreted this ECG as follows: (Normal sinus rhythm RBBB and LAFB not new) Prior ECG tracings: available for review Imaging Radiologist's Impressions: CXR FINDINGS: Small left pleural effusion and cardiomegaly again noted. Right pleural spaces clear. Pulmonary vascular congestion and pulmonary edema are stable. IMPRESSION: 1. Stable cardiomegaly, small left pleural effusion, and CHF findings. Assessment and Plan (1) Acute exacerbation of congestive heart failure: Qualifiers: Heart failure type: diastolic Qualified Code(s): I50.33 - Acute on chronic diastolic (congestive) heart failure Status: Acute Plan Patient is a 79-year-old female with extensive past medical history to include PE/DVT on Coumadin with antiphospholipid syndrome, mitral clip, HFpEF grade 2 moderate diastolic heart failure, pericardial effusion, Lung CA with lobectomy currently in remission, COPD/from secondhand smoke exposure on 2 L during the day and 2.5 L at night, KANDY on CPAP, anxiety, hypothyroidism, hyperlipidemia, insomnia is being seen in the ED for CHF exacerbation and request for admission made. Patient improved after treatment received in the ED. Acute CHF exacerbation/ chest pressure Cardiology consult Xray notes stable cardiomegaly and pulmonary edema, small L pl effusion Echo ordered, last echo October 2024, rule out pericardial effusion noting history via echo - no signs of tamonade Patient has history of mitral clip Lasix provided in the ED, potassium supplementation ordered Patient currently on 2 L nasal cannula without evidence of hypoxia, patient uses oxygen at home Troponins negative NT-BNP 1126 Low-sodium diet Daily weights Fluid allowance 1500 Measure I's and o's COPD/ history of lung cancer and lobectomy Duo nebs p.r.n. Incentive spirometer Supportive care with antitussives History of PE/DVT on Coumadin with known antiphospholipid syndrome INR pending Dose Coumadin accordingly KANDY CPAP HS Hypothyroidism Continue levothyroxine Anxiety Valium p.r.n. Patient lives alone and currently drive, did previously have [employer]ATH[employer] help but it was reduced due to budget cuts Patient finds living at home is becoming more difficult, case management consulted Insomnia Trazodone DVT Prophylaxis: Coumadin MED REC PENDING FULL CODE Quality Stroke Does the patient have a stroke diagnosis?: No Reason for No Anti-thrombotic by Day Two: N/A - Med Ordered VTE Prior VTE?: No VTE Risk Level:: Medical - moderate - high VTE Device Contraindication: N/A - Device Ordered VTE Drug Contraindication: N/A - Med Ordered
[2025-04-23 05:26] LABS: MANUAL DIFF FLAG NO
[2025-04-23 05:33] LABS: Hematocrit 34.7 % (37.0-47.0); Hemoglobin 11.2 g/dl (12.0-16.0); Imm Gran Abs Auto 0.19 X10*3/uL (0.00-0.03); Imm Gran Pct Auto 1.7 % (0.0-0.4); Lymphocytes Absolute Auto 0.9 X10*3/uL (1.2-4.9); Mean Corpuscular HGB Conc 32.3 g/dl (31.0-35.0); Mean Corpuscular Hemoglobin 33.2 pg (27.0-33.0); Mean Corpuscular Volume 103.0 fL (80.0-98.0); NRBC Abs Auto 0.000 X10*3/uL (0.0-0.012); NRBC Pct Auto 0.0 /100WBC (0.0-0.2); Platelet Count 190 X10*3/uL (160-400); Red Blood Count 3.37 X10*6/uL (4.20-5.50); White Blood Count 11.5 X10*3/uL (4.8-10.8)
[2025-04-23 05:42] LABS: INTERNATIONAL NORM RATIO 1.4 (0.9-1.1); Prothrombin Time 16.2 SEC (10.9-12.4)
[2025-04-23 05:52] LABS: Alanine Aminotransferase 21 U/L (0-31); Albumin Level 3.5 g/dL (3.5-5.0); Alkaline Phosphatase 64 U/L (39-117); Anion Gap 11 (12-20); Aspartate Amino Transferase 26 U/L (5-31); Blood Urea Nitrogen 20 mg/dL (9-16); Calcium 10.0 mg/dL (8.4-10.2); Carbon Dioxide 33 mmol/L (22-29); Chloride 101 mmol/L (96-108); Creatinine Clr Calc Pharmacy 46.6; Estimated Glomerular Filt Rate > 60; Potassium 2.9 mmol/L (3.3-5.1); Sodium 142 mmol/L (135-145); Total Protein 6.2 g/dL (6.5-8.0)
[2025-04-23] MEDS: Potassium Chloride Packet 20 MEQ PACKET 40 MEQ PO (06:47)
--- NOTE | 2025-04-23 07:00 | CA_ITS ---
Transthoracic Echocardiogram Patient (Last, First, Middle): Jovana Malik J Gender: Female Date of : 1945 Age: 80 Procedure Date: 04/23/2025 Procedure Type: Transthoracic Echocardiogram Location: ER Height: 160.02 cm Weight: 60.78 kg BSA: 1.63 m2 Heart Rate: 73 bpm BP: 132 / 61 mmHg Box Blank Machine Operator Helper: SB/AMBAR Referring MD: Eloise Bui PRESS TENDER- Symptoms: Acute CHF exacerbation with elevated BNP Study Quality: Adequate ECG Rhythm: Sinus Conclusions: - Normal left ventricular size and systolic function. The visually estimated ejection fraction is between 60-65%. - E/E prime ratio is >15, consistent with elevated filling pressures. - There is normal right ventricular systolic function. Right ventricular size is at upper limit of normal. - The left atrium is moderately dilated. - Right atrium is dilated. - Status post mitral clip. Mean gradient across the mitral valve 5 mm Hg at 75 beats per minute. - There is no evidence of pulmonary hypertension. - There is a trivial pericardial effusion. Findings Procedure Information The patient declines contrast. Left Ventricle Normal left ventricular size and systolic function. The visually estimated ejection fraction is between 60-65%. There is no evidence of regional wall motion abnormalities. Abnormal diastolic function is noted. Spectral Doppler is indicative of a pseudonormal filling pattern. E/E prime ratio is >15, consistent with elevated filling pressures. There is mild septal asymmetric hypertrophy. Right Ventricle There is normal right ventricular systolic function. Right ventricular size is at upper limit of normal. Atria The left atrium is moderately dilated. Right atrium is dilated. Aortic Valve There is a normal trileaflet aortic valve. There is mild calcification of the aortic valve. There is no aortic valve stenosis. There is no aortic valve regurgitation. Mitral Valve The mitral valve appears normal. There is trace mitral valve regurgitation. There is no mitral valve stenosis. Status post mitral clip. Mean gradient across the mitral valve 5 mm Hg at 75 beats per minute. Pulmonic Valve The pulmonic valve is normal. There is trace pulmonic valve regurgitation. Tricuspid Valve Normal tricuspid valve structure. There is moderate tricuspid valve regurgitation. The right ventricular systolic pressure is 34 mmHg. Normal right atrial pressure. There is no evidence of pulmonary hypertension. Great Vessels All visible segments of the aorta are normal in size. The visualized portions of the pulmonary artery and branches are normal. Venous The inferior vena cava is normal in size and collapses greater than 50% with inspiration. Pericardium/Pleural There is a trivial pericardial effusion. Prior Study Comparison Changes noted compared to prior study dated: 10/30/2024. PA pressure normal. Measurements 2D Linear Measurements IVSd: 1.26 0.6-0.9/0.6-1.0 cm LVIDd: 3.79 3.9-5.3/4.2-5.9 cm LVIDd Index: 2.33 2.4-3.2/2.2-3.1 cm/m2 LVIDs: 2.35 2.0-3.6 cm LVPWd: 0.69 0.7-1.1 cm LV Mass: 139.76 67-162/88-224 g LV Mass Index: 85.74 43-95/49-115 g/m2 LVOT Diam: 2.20 3.0+(-)1.3 cm 2D Systolic Function EF 4C: 46.60 >55% EF 2C: 49.80 >55% EF BiP: 49.90 >55% Mitral Valve MV VTI: 0.48 MV Pk Memo: 1.72 MV Mn Memo: 1.11 MV Pk Grad: 12.00 MV Mn Grad: 5.00 MV Pk E: 1.58 MV PK A: 1.10 MV Decel Time: 414.00 E/A: 1.40 E'Lateral: 2.80 E'Medial: 3.94 E/E' Med: 40.10 E/E' Lat: 56.40 PHT: 121.00 MVA PHT: 1.82 MVA Continuity: 1.31 Decel Mower: 3.81 Aortic Valve AoV Pk Memo: 1.00 AoV Mn Memo: 0.67 AoV VTI: 0.19 AoV Pk Grad: 4.00 Aov Mn Grad: 2.00 HARLEY Cont.VTI: 3.25 LVOT LVOT Pk Memo: 0.81 LVOT Mn Memo: 0.56 LVOT VTI: 0.17 LVOT Pk Grad: 3.00 LVOT Mn Grad: 2.00 LVOT Diam: 2.20 LVOT Area: 3.80 Diastolic Function MV Pk E: 1.58 MV Pk A: 1.10 E/A: 1.40 E'Medial: 3.94 E/E' Med: 40.10 E' Laterial: 2.80 E/E' Lat: 56.40 Right Ventricle TAPSE (mm): 23.60 TVS' Memo: 11.20 Tricuspid Valve TR Pk Memo: 2.77 TR Pk Grad: 31.00 RA Press: 3.00 RVSP: 34.00 Great Vessels Aorta Sinus of Valsalva: 3.10 2.0-3.5 cm Ao Asc: 3.20 2.1-3.4 cm Ao Arch: 2.80 Pulmonary Valve PV Pk Memo: 0.81 Peak PV Grad: 3.00 DE Pk Memo: 1.78 Updated in Other Vendor System with Status of Final Luis Eduardo Cadet MD electronically signed on 04/24/2025 3:45:15 PM with status of Final
--- NOTE | 2025-04-23 08:29 | PHA.MEDREC ---
Pharmacy Consult ? Medication Reconciliation Pharmacy has completed the medication reconciliation. Spoke with patient at bedside, she was able to confirm her medications verbally. States she never started the brimonidine eye drops as she is waiting to talk to her eye doctor, she finished the cough syrup, doxycycline, mupirocin, and prednisone taper. She confirmed she takes her metoprolol BID despite it being ER tablets and her warfarin she takes based on clinic levels. She said this week her INr was 1.4 and she was supposed to take 2.5mg today.
--- NOTE | 2025-04-23 08:48 | PC.NURSE ---
Med rec completed by pharmacy. MD Naik asked to order pt's home medications.
--- NOTE | 2025-04-23 10:22 | PC.NURSE ---
MD Naik messaged to order pt's home meds (specifically lasix).
--- NOTE | 2025-04-23 10:39 | PM.CNCAR ---
History of Present Illness History of Present Illness Date of Service: 04/23/25 Chief complaint: Acute CHF Exacerbation Narrative: Pleasant 80 year female who has multiple medical issues and follows in the office for diastolic heart failure, moderate coronary artery disease, chronic chest pains, previous mitral valve regurgitation status post mitral clip, pulmonary hypertension and previous lung resection and radiation. She is on supplemental oxygen 247. She has been complaining of chest tightness for long time. She previously has testing done including angiography which showed angiographically moderate LAD stenosis. Given her previous alveolar hemorrhage and dependence on Coumadin for thromboembolism-she has been medically treated for coronary disease. She is complaining of chest tightness and shortness of breath. She said she checked her oxygen level was 88% on supplemental oxygen. She does not tolerate hypoxia well and every time she gets hypoxic she gets chest discomfort. This has improved significantly with using oxygen regularly. She came to the emergency department and was noticed to be in heart failure. He was started on diuretics and has been feeling better. EKG, labs and imaging reviewed. [facility] Past Medical History Medical History Chest pain Chest pain Ankle pain Chronic hypercapnic respiratory failure KANDY treated with BiPAP COPD (chronic obstructive pulmonary disease) Open wound Warfarin anticoagulation Complex sleep apnea syndrome Leg pain Anemia Tachycardia DVT (deep venous thrombosis) Compression fracture of body of thoracic vertebra ASD (atrial septal defect) Pleuritic chest pain History of COVID-19 Chronic anticoagulation Hypothyroidism GERD (gastroesophageal reflux disease) Hyperlipidemia Hypertension Factor 5 Leiden mutation, heterozygous History of non-ST elevation myocardial infarction (NSTEMI) Hypoxia Anxiety PTSD (post-traumatic stress disorder) Hemoptysis Dyspnea Tracheobronchitis CLARA positive Diverticulitis Allergic bronchitis (HFpEF) heart failure with preserved ejection fraction Subarachnoid bleed Insomnia Anti-phospholipid antibody syndrome Hypogammaglobulinemia Chronic respiratory failure Arterial insufficiency of lower extremity Complex regional pain syndrome i of right lower limb Post herpetic neuralgia Pulmonary hypertension Pericardial effusion Pulmonary emboli Pleural effusion Radiation fibrosis of lung Pneumonitis Pulmonary nodules Lung cancer Family History Family History Sister No problems noted. 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 that came to visit her) Alcohol intake: never Comment: stand by assist with ambulation Patient Tobacco Use Status: Never used Tobacco Smoked in Last 30 Days: No Second Hand Smoke Exposure: No Use of substances other than those prescribed or required for medical reasons: No Advance Directives: Yes Advance Directives on File: Yes Advance Directives Date on File: 06/15/22 Nutrition Risks: No Nutritional Risk Patient : No service: No Current occupational status: retired Travel History Ebola Risk: Travel/Contact With Anyone From Affected Area/s: No Has Patient Experienced Ebola Symptoms: No Meds Allergies Allergy/AdvReac Type Severity Reaction Status Date / Time morphine Allergy Severe Itching Verified 04/22/25 20:16 avocado (AVOCADO) Allergy Mild ITCHY Verified 04/22/25 20:16 THROAT, RASH azithromycin (AZITHROMYCIN) Allergy Mild ITCHY Verified 04/22/25 20:16 THROAT, RASH barium iodide (BARIUM IODIDE) Allergy Mild ITCHY Verified 04/22/25 20:16 THROAT, RASH barium sulfate Allergy Mild Itch Verified 04/22/25 20:16 bee pollen (BEE STINGS) Allergy Mild ITCHY Verified 04/22/25 20:16 THROAT, RASH ciprofloxacin (From CIPRO) Allergy Mild ITCHY Verified 04/22/25 20:16 THROAT, RASH clarithromycin (From BIAXIN) Allergy Mild ITCHY Verified 04/22/25 20:16 THROAT, RASH diatrizoate meglumine (From Allergy Mild ITCHY Verified 04/22/25 20:16 GASTROGRAFIN) THROAT, RASH diatrizoate sodium (From Allergy Mild ITCHY Verified 04/22/25 20:16 GASTROGRAFIN) THROAT, RASH diclofenac (From VOLTAREN) Allergy Mild ITCHY Verified 04/22/25 20:16 THROAT, RASH erythromycin base Allergy Mild ITCHY Verified 04/22/25 20:16 (ERYTHROMYCIN BASE) THROAT, RASH gentamicin (GENTAMICIN) Allergy Mild ITCHY Verified 04/22/25 20:16 THROAT, RASH Iodinated Contrast Media Allergy Mild ITCHY Verified 04/22/25 20:16 (IVP DYE) THROAT, RASH levofloxacin (From LEVAQUIN) Allergy Mild ITCHY Verified 04/22/25 20:16 THROAT, RASH metronidazole (From FLAGYL) Allergy Mild ITCHY Verified 04/22/25 20:16 THROAT, RASH moxifloxacin (From AVELOX) Allergy Mild ITCHY Verified 04/22/25 20:16 THROAT, RASH Penicillins (PENICILLINS) Allergy Mild ITCHY Verified 04/22/25 20:16 THROAT, RASH shrimp (SHRIMP) Allergy Mild ITCHY Verified 04/22/25 20:16 THROAT, RASH Sulfa (Sulfonamide Allergy Mild ITCHY Verified 04/22/25 20:16 Antibiotics) (SULFA THROAT, (SULFONAMIDE ANTIBIOTICS)) RASH vancomycin (VANCOMYCIN) Allergy Mild ITCHY Verified 04/22/25 20:16 THROAT, RASH clindamycin AdvReac Intermediate Unknown Verified 04/22/25 20:16 Active Medications: Current Medications Acetaminophen (Acetaminophen 325 Mg Tablet) 650 mg PO Q6H PRN PRN Reason: Pain, Mild 1-3,fever,headache Albuterol Sulfate (Albuterol Sulfate 90 Mcg 8 Gm Inhaler) 2 puff INHALE Q6H PRN PRN Reason: shortness of breath or wheezing Ascorbic Acid (Ascorbic Acid 250 Mg Tablet) 250 mg PO DAILY [facility] Calcium Carbonate (Calcium Carbonate 750 Mg Tab.Chew) 750 mg PO Q4H PRN PRN Reason: Heartburn Cyanocobalamin (Cyanocobalamin (Vitamin B-12) 100 Mcg Tablet) 50 mcg PO DAILY [facility] Docusate Sodium (Docusate Sodium 100 Mg Capsule) 100 mg PO BID [facility] Fluticasone Propionate (Fluticasone Propionate Nasal 16 Gm [place]) 2 spray NOSTRIL-B DAILY [facility] Folic Acid (Folic Acid 1 Mg Tablet) 1 mg PO DAILY [facility] Furosemide (Furosemide 40 Mg Tablet) 40 mg PO BID@0900,1800 [facility]; Protocol Levothyroxine Sodium (Levothyroxine Sodium 50 Mcg Tablet) 50 mcg PO SUSA@0600 [facility] Levothyroxine Sodium (Levothyroxine Sodium 25 Mcg Tablet) 25 mcg PO MOTUWETHFR@0600 [facility] Magnesium Hydroxide (Milk Of Magnesia 30 Ml Oral.Susp) 30 ml PO DAILY PRN PRN Reason: Constipation Melatonin (Melatonin 3 Mg Tablet) 6 mg PO BEDTIME PRN PRN Reason: Insomnia Metoprolol Succinate (Metoprolol Succinate Er 50 Mg Tab.Er.24h) 50 mg PO BID [facility]; Protocol Montelukast Sodium (Montelukast Sodium 10 Mg Tablet) 10 mg PO DAILY [facility] Non-Formulary Medication (Diazepam) 2.5 mg PO BID PRN PRN Reason: anxiety Non-Formulary Medication (Ferrous Gluconate) 324 mg PO DAILY [facility] Non-Formulary Medication (Fluticasone Propion-Salmeterol [Advair Hfa]) 2 puff INHALE BID [facility] Non-Formulary Medication (Levocetirizine) 5 mg PO DAILY [facility] Non-Formulary Medication (Riboflavin (Vitamin B2)) 25 mg PO DAILY [facility] Non-Formulary Medication (Rosuvastatin) 10 mg PO MOWEFR@2100 [facility] Non-Formulary Medication (Zinc) 50 mg PO DAILY [facility] Ondansetron HCl (Ondansetron Hcl 4 Mg/2 Ml Vial) 4 mg IVPUSH Q8H PRN PRN Reason: Nausea and Vomiting Polyethylene Glycol (Polyethylene Glycol 3350 17 Gm Powd.Pack) 17 gm PO DAILY PRN PRN Reason: Constipation Potassium Chloride (Potassium Chloride Packet 20 Meq Packet) 20 meq PO DAILY [facility] Potassium Chloride (Potassium Chloride Packet 20 Meq Packet) 20 meq PO DAILY [facility] Prednisone (Prednisone 2.5 Mg Tablet) 2.5 mg PO Q OTHER DAY [facility] Senna (Sennosides 8.6 Mg Tablet) 17.2 mg PO BEDTIME [facility] Simethicone (Simethicone 80 Mg Tab.Chew) 80 mg PO QIDWMHS PRN PRN Reason: Abdominal Discomfort Sodium Chloride (0.9 % Sodium Chloride Flush 3 Ml Syringe) 3 ml IVFLUSH QSHIFT [facility] Spironolactone (Spironolactone 25 Mg Tablet) 25 mg PO DAILY [facility]; Protocol Trazodone HCl (Trazodone Hcl 100 Mg Tablet) 100 mg PO BEDTIME [facility] Warfarin Sodium (Warfarin Sodium 1 Mg Tablet) 0 mg PO .COMPLEX [facility] Home Medications ?Medication ?Instructions ?Recorded ?Confirmed ?Last Taken ?Type CPAP (CPAP Machine/Device) 06/30/22 11/11/24 Unknown History Oxygen Home Use 06/30/22 11/11/24 Unknown History nebulizers 06/30/22 11/11/24 Unknown History epinephrine 0.3 mg/0.3 mL 0.3 mg IM USEASDIRECTD PRN 07/14/22 04/23/25 04/22/25 History injection, auto-injector Allergic Reaction levothyroxine 25 mcg tablet 50 mcg PO SUSA@0600 01/05/24 04/23/25 04/22/25 History (Synthroid) docusate sodium 100 mg capsule 100 mg PO BID 01/14/24 04/23/25 04/22/25 History diazepam 5 mg tablet 2.5 mg PO BID PRN anxiety 11/21/24 04/23/25 04/22/25 History ferrous gluconate 324 mg (38 mg 324 mg PO DAILY 01/16/25 04/23/25 04/22/25 History iron) tablet folic acid 1 mg tablet 1 mg PO DAILY 01/16/25 04/23/25 04/22/25 History levothyroxine 25 mcg tablet 25 mcg PO MOTUWETHFR@0600 01/16/25 04/23/25 04/22/25 History (Synthroid) rosuvastatin 10 mg tablet 10 mg PO MOWEFR@2100 01/16/25 04/23/25 04/22/25 History warfarin 1 mg tablet ([place]) See Rx Instructions .Route .COMPLEX 01/16/25 04/23/25 04/22/25 History ascorbic acid (vitamin C) 250 mg 250 mg PO DAILY 04/23/25 04/23/25 04/22/25 History tablet cetirizine 10 mg tablet (Zyrtec) 10 mg PO DAILY 04/23/25 04/23/25 Unknown History cyanocobalamin (vitamin B-12) 50 50 mcg PO DAILY 04/23/25 04/23/25 04/22/25 History mcg tablet (Vitamin B-12) riboflavin (vitamin B2) 25 mg 25 mg PO DAILY 04/23/25 04/23/25 04/22/25 History tablet simethicone 80 mg chewable tablet 80 mg PO QIDWMHS PRN Abdominal 04/23/25 04/23/25 04/22/25 History (Gas Relief (simethicone)) Discomfort zinc 50 mg capsule 50 mg PO DAILY 04/23/25 04/23/25 04/22/25 History Physical Exam Vital Signs: Vital Signs: Last Vital Signs Temp 98.0 F 04/23/25 09:00 Pulse 74 04/23/25 09:00 Resp 18 04/23/25 09:00 BP 109/59 L 04/23/25 09:00 Pulse Ox 98 04/23/25 09:00 O2 Del Method Room Air 04/23/25 09:00 O2 Flow Rate 2 04/23/25 01:31 Oxygen Flow Rate 2 04/22/25 20:11 BMI result Body Mass Index 23.7 GENERAL APPEARANCE: In no distress. On supplemental oxygen. NECK/THYROID: no carotid bruit, mild JVD. SKIN: no suspicious lesions, warm and dry. HEART: no murmurs, regular rate and rhythm, S1, S2 normal. LUNGS: clear to auscultation bilaterally. ABDOMEN: normal, bowel sounds present, soft, nontender, nondistended. EXTREMITIES: no clubbing, cyanosis. Mild edema left ankle. PERIPHERAL PULSES: equal. NEUROLOGIC: nonfocal, alert and oriented. Objective Labs and Meds 04/23/25 04:02 04/23/25 04:02 Lab results: Laboratory Results - last 24 hr 04/22/25 04/23/25 04/23/25 20:49 04:02 04:16 WBC 10.8 11.5 H RBC 3.48 L 3.37 L Hgb 11.5 L 11.2 L Hct 35.9 L 34.7 L MCV 103.2 H 103.0 H MCH 33.0 33.2 H MCHC 32.0 32.3 RDW 13.9 13.6 Plt Count 184 190 MPV 10.7 11.2 Immature Gran % (Auto) 1.4 H 1.7 H Neut % (Auto) 76.8 H 78.6 H Lymph % (Auto) 11.3 L 7.7 L [place]once % (Auto) 8.8 10.0 Eos % (Auto) 1.1 1.3 Baso % (Auto) 0.6 0.7 Lymph # (Auto) 1.2 0.9 L [place] # (Auto) 1.0 1.2 Eos # (Auto) 0.1 0.2 Baso # (Auto) 0.1 0.1 Abs Immat Gran (auto) 0.15 H 0.19 H Absolute Neuts (auto) 8.3 9.0 H Absolute Nucleated RBC 0.000 0.000 Nucleated RBC % (auto) 0.0 0.0 PT 16.2 H D INR 1.4 H Sodium 140 142 Potassium 3.3 2.9 L* Chloride 101 101 Carbon Dioxide 30 H 33 H Anion Gap 12 11 L BUN 23 H 20 H Creatinine 0.76 0.77 Estim Creat Clear Calc 47.2 46.6 Estimated GFR > 60 > 60 Random Glucose 100 93 Calcium 9.8 10.0 Magnesium 2.5 Total Bilirubin 0.4 AST 26 ALT 21 Alkaline Phosphatase 64 Troponin I High Sens 15.0 NT-Pro-B Natriuret Pep 1126.0 H Total Protein 6.2 L Albumin 3.5 Influenza Type A (PCR) NEGATIVE Influenza Type B (PCR) NEGATIVE RSV RNA Qual (PCR) NEGATIVE SARS-CoV-2 RNA (RT-PCR) NEGATIVE Assessment and Plan (1) Acute exacerbation of congestive heart failure: Qualifiers: Heart failure type: diastolic Qualified Code(s): I50.33 - Acute on chronic diastolic (congestive) heart failure Status: Acute Plan Acute exacerbation of diastolic heart failure in this 85-year-old lady. She is presenting with chest tightness which she gets every time she has hypoxia from any cause. Her oxygen saturations were 88% on supplemental oxygen. I think we do not need to pursue any further workup for coronary disease currently. Her biomarkers are negative. EKGs also stable. Echocardiography was reviewed while she was getting the imaging done and wall motion abnormalities were not obvious. Continue IV diuretics today and potentially change to oral diuretics tomorrow. Add spironolactone 25 mg daily. We will follow along with you. Thank you for allowing me to participate in the care of your patient. Please feel free to contact me if you have any questions. Procedures Date of Service Date of Service: 04/23/25
[2025-04-23] MEDS: Potassium Chloride Packet 20 MEQ PACKET PO (10:44)
[2025-04-23] MEDS: 0.9 % Sodium Chloride Flush 3 ML SYRINGE IVFLUSH (10:44)
[2025-04-23] MEDS: Metoprolol Succinate ER 50 MG TAB.ER.24H PO ×2 (11:15→22:24)
[2025-04-23] MEDS: Furosemide 20 MG/2 ML VIAL IVPUSH (11:16)
--- NOTE | 2025-04-23 11:26 | MHC.CM.PN ---
IMM GIVEN 04/23. THIS CM MET WITH PT, LIVES ALONE AT HOME. PT STATES SHE IS ACTIVE W/ [employer] 2 HOURS/WEEK. DME: HOME O2 VIA [facility]. HCP ON FILE AND VERIFIED. DCP: RETURN HOME WITH RESUMPTION OF PREVIOUS [employer]ING SERVICES, PT WILL NEED ASSISTANCE W/ TRANSPORT HOME. PCP: EVELIN BAUMANN
[2025-04-23] MEDS: Fluticasone/Vilanterol 200/25 BLST.W.DEV 1 PUFF INHALE ×2 (11:29)
--- NOTE | 2025-04-23 14:10 | P.EN_ITS ---
Event Note Date of Service: 04/24/25 Event Note: Good candidatePatient is a 79-year-old female with extensive past medical history to include PE/DVT on Coumadin with antiphospholipid syndrome, mitral clip, HFpEF grade 2 moderate diastolic heart failure, pericardial effusion, Lung CA with lobectomy currently in remission, COPD/from secondhand smoke exposure on 2 L during the day and 2.5 L at night, KANDY on CPAP, anxiety, hypothyroidism, hyperlipidemia, insomnia is being seen in the ED for CHF exacerb ation and request for admission made. Patient improved after treatment received in the ED. Acute CHF exacerbation/ chest pressure Cardiology consult Xray notes stable cardiomegaly and pulmonary edema, small L pl effusion Echo ordered, last echo October 2024, rule out pericardial effusion noting history via echo - no signs of tamonade Patient has history of mitral clip Lasix provided in the ED, potassium supplementation ordered Patient currently on 2 L nasal cannula without evidence of hypoxia, patient uses oxygen at home Troponins negative NT-BNP 1126 Low-sodium diet Daily weights Fluid allowance 1500 Measure I's and o's COPD/ history of lung cancer and lobectomy Duo nebs p.r.n. Incentive spirometer Supportive care with antitussives History of PE/DVT on Coumadin with known antiphospholipid syndrome INR pending Dose Coumadin accordingly KANDY CPAP HS Hypothyroidism Continue levothyroxine Anxiety Valium p.r.n. 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
[2025-04-23] MEDS: Albuterol Sulfate 90 MCG 8 GM INHALER 2 PUFF INHALE (15:23)
[2025-04-23] MEDS: Albuterol Sulfate (0.083%) 2.5 MG/3 ML VIAL.NEB INHALE (15:31)
--- NOTE | 2025-04-23 21:00 | HO.NURTONUR ---
Pt arrived c/o SOB w/chest pressure radiating to back/shoulders. Pt is very anxious. Hx: Lung CA with lobectomy currently in remission, COPD/from secondhand smoke exposure on 2 L during the day and 2.5 L at night, KANDY on CPAP, anxiety, PE/DVT on Coumadin, antiphospholipid syndrome, mitral clip, HFpEF, pericardial effusion, hypothyroidism, HLD, insomnia. ED workup shows stable cardiomegaly with small left pleural effusion and CHF findings including pulmonary vascular congestion and pulmonary edema. Trops negx2. BNP 11 26. Given lasix, and valium for sleep and anxiety. COVID/RSV/flu neg. Admit for CHF exac. Ambulatory/independent at baseline.
[2025-04-24] VITALS (12 sets, daily range): BP systolic 95–122; BP diastolic 48–56; PULSE 56–79; RESP 16–18; TEMP 36–36.9; O2SAT 92–100; BMI 22.0
[2025-04-24] MEDS: 0.9 % Sodium Chloride Flush 3 ML SYRINGE IVFLUSH ×4 (00:33→19:56)
[2025-04-24 07:19] LABS: INTERNATIONAL NORM RATIO 1.5 (0.9-1.1); Prothrombin Time 17.5 SEC (10.9-12.4)
[2025-04-24] MEDS: Ferrous Sulfate 324 MG TABLET.DR PO (08:45)
[2025-04-24] MEDS: Metoprolol Succinate ER 50 MG TAB.ER.24H PO ×2 (08:45→19:55)
[2025-04-24] MEDS: Potassium Chloride Packet 20 MEQ PACKET PO ×2 (08:45)
--- NOTE | 2025-04-24 12:31 | P.PNIM_ITS ---
Subjective Subjective Date of Service: 04/24/25 Interval History: f/u on chf exacerbation, now reporting abd pain, no sob Physical Exam 2 Exam: Exam: General: AO X 3, no acute distress Resp: CTA bilateral CVS: S1,S2,RRR GI: +BS, NT, no distention Skin: No rash Neuro: motor grossly intact Psych: appropriate affect Vital Signs: Vital Signs: Last Vital Signs Temp 97.3 F 04/24/25 11:47 Pulse 66 04/24/25 11:47 Resp 18 04/24/25 11:47 BP 100/50 L 04/24/25 11:47 Pulse Ox 98 04/24/25 11:47 O2 Del Method Room Air 04/24/25 11:47 O2 Flow Rate 2 04/24/25 04:00 Oxygen Flow Rate 2 04/22/25 20:11 BMI result Body Mass Index 22.0 Objective Data Active Medications Acetaminophen (Acetaminophen 325 Mg Tablet) 650 mg PO Q6H PRN PRN Reason: Pain, Mild 1-3,fever,headache Albuterol Sulfate (Albuterol Sulfate 90 Mcg 8 Gm Inhaler) 2 puff INHALE Q6H PRN PRN Reason: shortness of breath or wheezing Last Admin: 04/23/25 15:23 Dose: 2 puff Documented By: BETTY Ascorbic Acid (Ascorbic Acid 250 Mg Tablet) 250 mg PO DAILY [facility] Last Admin: 04/24/25 08:44 Dose: 250 mg Documented By: RADHA Atorvastatin Calcium (Atorvastatin Calcium 10 Mg Tablet) 10 mg PO MOWEFR@2100 [facility] Last Admin: 04/23/25 22:24 Dose: 10 mg Documented By: BTETY Calcium Carbonate (Calcium Carbonate 750 Mg Tab.Chew) 750 mg PO Q4H PRN PRN Reason: Heartburn Last Admin: 04/23/25 20:16 Dose: 750 mg Documented By: BETTY Cyanocobalamin (Cyanocobalamin (Vitamin B-12) 100 Mcg Tablet) 50 mcg PO DAILY [facility] Last Admin: 04/24/25 08:45 Dose: 50 mcg Documented By: RADHA Diazepam (Diazepam 5 Mg Tablet) 2.5 mg PO BID PRN PRN Reason: anxiety Last Admin: 04/23/25 15:23 Dose: 2.5 mg Documented By: HO.N-GEOFFREY Docusate Sodium (Docusate Sodium 100 Mg Capsule) 100 mg PO BID [facility] Last Admin: 04/24/25 08:44 Dose: Not Given Documented By: RADHA Non-Admin Reason: Patient Refused Ferrous Sulfate (Ferrous Sulfate 324 Mg Tablet.Dr) 324 mg PO DAILY [facility] Last Admin: 04/24/25 08:45 Dose: 324 mg Documented By: RADHA Fluticasone Propionate (Fluticasone Propionate Nasal 16 Gm [place]) 2 spray NOSTRIL-B DAILY [facility] Last Admin: 04/24/25 08:46 Dose: Not Given Documented By: RADHA Non-Admin Reason: Patient Refused Fluticasone/Vilanterol (Fluticasone/Vilanterol 200/ Blst.W.Dev) 1 puff INHALE RDAILY [facility] Last Admin: 04/23/25 11:29 Dose: 1 puff Documented By: DANIEL Folic Acid (Folic Acid 1 Mg Tablet) 1 mg PO DAILY [facility] Last Admin: 04/24/25 08:45 Dose: 1 mg Documented By: RADHA Furosemide (Furosemide 40 Mg Tablet) 40 mg PO BID@0900,1800 [facility]; Protocol Last Admin: 04/24/25 08:44 Dose: 40 mg Documented By: RADHA Levothyroxine Sodium (Levothyroxine Sodium 50 Mcg Tablet) 50 mcg PO SUSA@0600 [facility] Levothyroxine Sodium (Levothyroxine Sodium 25 Mcg Tablet) 25 mcg PO MOTUWETHFR@0600 [facility] Last Admin: 04/24/25 05:30 Dose: 25 mcg Documented By: RAJ Loratadine (Loratadine 10 Mg Tablet) 10 mg PO DAILY [facility] Last Admin: 04/24/25 08:44 Dose: 10 mg Documented By: RADHA Magnesium Hydroxide (Milk Of Magnesia 30 Ml Oral.Susp) 30 ml PO DAILY PRN PRN Reason: Constipation Melatonin (Melatonin 3 Mg Tablet) 6 mg PO BEDTIME PRN PRN Reason: Insomnia Metoprolol Succinate (Metoprolol Succinate Er 50 Mg Tab.Er.24h) 50 mg PO BID [facility]; Protocol Last Admin: 04/24/25 08:45 Dose: 50 mg Documented By: RADHA Montelukast Sodium (Montelukast Sodium 10 Mg Tablet) 10 mg PO BEDTIME [facility] Last Admin: 10/15/25 22:24 Dose: 10 mg Documented By: BETTY Ondansetron HCl (Ondansetron Hcl 4 Mg/2 Ml Vial) 4 mg IVPUSH Q8H PRN PRN Reason: Nausea and Vomiting Polyethylene Glycol (Polyethylene Glycol 3350 17 Gm Powd.Pack) 17 gm PO DAILY PRN PRN Reason: Constipation Potassium Chloride (Potassium Chloride Packet 20 Meq Packet) 20 meq PO DAILY [facility] Last Admin: 04/24/25 08:45 Dose: 20 meq Documented By: RADHA Potassium Chloride (Potassium Chloride Packet 20 Meq Packet) 20 meq PO DAILY [facility] Last Admin: 04/24/25 08:45 Dose: 20 meq Documented By: ARDHA Prednisone (Prednisone 2.5 Mg Tablet) 2.5 mg PO Q48H [facility] Last Admin: 04/24/25 08:45 Dose: 2.5 mg Documented By: RADHA Senna (Sennosides 8.6 Mg Tablet) 17.2 mg PO BEDTIME [facility] Last Admin: 04/23/25 22:23 Dose: 17.2 mg Documented By: BETTY Simethicone (Simethicone 80 Mg Tab.Chew) 80 mg PO QIDWMHS PRN PRN Reason: Abdominal Discomfort Sodium Chloride (0.9 % Sodium Chloride Flush 3 Ml Syringe) 3 ml IVFLUSH QSHIFT [facility] Last Admin: 04/24/25 08:45 Dose: 3 ml Documented By: RADHA Spironolactone (Spironolactone 25 Mg Tablet) 25 mg PO DAILY [facility]; Protocol Last Admin: 04/24/25 08:44 Dose: 25 mg Documented By: RADHA Trazodone HCl (Trazodone Hcl 100 Mg Tablet) 100 mg PO BEDTIME [facility] Last Admin: 04/23/25 22:23 Dose: 100 mg Documented By: BETTY Warfarin Sodium (Warfarin Sodium 2.5 Mg Tablet) 2.5 mg PO DAILY@1800 [facility] Last Admin: 04/23/25 19:08 Dose: 2.5 mg Documented By: BETTY Zinc Sulfate (Zinc Sulfate 220 Mg Capsule) 220 mg PO DAILY [facility] Last Admin: 04/24/25 08:45 Dose: 220 mg Documented By: RADHA Labs 04/23/25 04:02 04/23/25 04:02 Labs: Laboratory Results - last 24 hr 04/24/25 06:44 Hold Purple Top SEE NOTE PT 17.5 H INR 1.5 H Assessment and Plan (1) Acute exacerbation of congestive heart failure: Status: Acute Plan 79-year-old female with extensive past medical history to include PE/DVT on Coumadin with antiphospholipid syndrome, mitral clip, HFpEF grade 2 moderate diastolic heart failure, pericardial effusion, Lung CA with lobectomy currently in remission, COPD/from secondhand smoke exposure on 2 L during the day and 2.5 L at night, KANDY on CPAP, anxiety, hypothyroidism, hyperlipidemia, insomnia is being seen in the ED for CHF exacerbation and request for admission made. Patient improved after treatment received in the ED. Acute diastolic CHF, last echo October to 65 % IV Lasix Monitor I/O cardiology following continue metoprolol, aldactone COPD/ history of lung cancer and lobectomy Duo kate p.r.n. History of PE/DVT on Coumadin with known antiphospholipid syndrome INR 1.5 KANDY CPAP HS HypOthyroidism Continue levothyroxine Anxiety Valium PRN Abd pain, CT check cdif, and stool panel Insomnia Trazodone Quality Stroke Does the patient have a stroke diagnosis?: No Reason for No Anti-thrombotic by Day Two: N/A - Med Ordered VTE Prior VTE?: No VTE Risk Level:: Medical - moderate - high VTE Device Contraindication: N/A - Device Ordered VTE Drug Contraindication: N/A - Med Ordered
--- NOTE | 2025-04-24 14:21 | PM.PNCARD ---
Subjective Subjective Date of Service: 04/24/25 Interval history: seen and examined at bedside. c/o SOB. Physical Exam Vital Signs: Last Vital Signs Temp 97.3 F 04/24/25 11:47 Pulse 66 04/24/25 11:47 Resp 18 04/24/25 11:47 BP 100/50 L 04/24/25 11:47 Pulse Ox 98 04/24/25 11:47 O2 Del Method Room Air 04/24/25 11:47 O2 Flow Rate 2 04/24/25 04:00 Oxygen Flow Rate 2 04/22/25 20:11 BMI result Body Mass Index 22.0 GENERAL APPEARANCE: In no distress. On supplemental oxygen. NECK/THYROID: no carotid bruit, mild JVD. SKIN: no suspicious lesions, warm and dry. HEART: no murmurs, regular rate and rhythm, S1, S2 normal. LUNGS: b/l expiratory wheezes. ABDOMEN: normal, bowel sounds present, soft, nontender, nondistended. EXTREMITIES: no clubbing, cyanosis. no edema. PERIPHERAL PULSES: equal. NEUROLOGIC: nonfocal, alert and oriented. Objective Labs and Meds 04/23/25 04:02 04/23/25 04:02 Lab results: Laboratory Results - last 24 hr 04/24/25 06:44 Hold Purple Top SEE NOTE PT 17.5 H INR 1.5 H Imaging Radiologist's impression: Impressions Abdomen/Pelvis CT 04/24/25 13:35 IMPRESSION: 1. No acute finding in the abdomen or pelvis. 2. Chronic small left loculated pleural effusion and small to moderate-sized pericardial effusion. 3. Sigmoid diverticulosis without evidence of acute diverticulitis. 4. Additional stable ancillary findings as detailed in the body of the report. Electronically signed by: Tremaine Curiel MD 04/24/2025 02:09 PM EDT Progress Note: A&P Assessment and plan (1) Acute exacerbation of congestive heart failure: Status: Acute Plan 80 female with multiple medical issues here for ADCHF. Volume status improving but BP is low which may limit aggressive diuresis. would favour using home dose Lasix 80mg BID and added spironolactone. She is fine with trying Jardiance, can add 10 mg. She is wheezing- give nebs. We will follow along with you. Time Spent With Patient Time: Total time managing care of this patient today ____ minutes. Progress Note: Quality Stroke Does the patient have a stroke diagnosis?: No Reason for No Anti-thrombotic by Day Two: N/A - Med Ordered Procedures Date of Service Date of Service: 04/24/25
[2025-04-24 14:50] LABS: CDiff Gene PCR NEGATIVE (Negative)
[2025-04-24] MEDS: Albuterol/Iprat 2.5/0.5MG 3 ML AMPUL.NEB INHALE (15:27)
[2025-04-25] VITALS (13 sets, daily range): BP systolic 98–137; BP diastolic 47–69; PULSE 69–88; RESP 16–20; TEMP 36–36.9; O2SAT 93–100; BMI 22.0
--- NOTE | 2025-04-25 07:16 | HO.PM.IMPN ---
Subjective Subjective Date of Service: 04/25/25 Interval History: Continues to endorse L chest pain, cough, suffocation and feeling of dread wierd dreams Denied any help offered Pt states she feels wobbly and wants PT/OT Currently sat 88-92% on 2L O2- her baseline Repeat cxr suggestive of L pleuritic pain , no new or worsening pna Pulm consulted per Cardiac recs Review of Systems Review of Systems: Yes all other systems are reviewed and are negative Physical Exam Vital Signs: Vital Signs: Last Vital Signs Temp 96.8 F 04/25/25 03:36 Pulse 69 04/25/25 03:36 Resp 18 04/25/25 03:36 BP 100/50 L 04/25/25 03:36 Pulse Ox 100 04/25/25 03:36 O2 Del Method Room Air 04/25/25 03:36 O2 Flow Rate 2 04/24/25 23:45 Oxygen Flow Rate 2 04/22/25 20:11 BMI result Body Mass Index 22.0 GENERAL APPEARANCE: In no distress. On supplemental oxygen. NECK/THYROID: no carotid bruit, no JVD. SKIN: no suspicious lesions, warm and dry. HEART: no murmurs, regular rate and rhythm, S1, S2 normal. LUNGS: No wheezes today. Decreased breath sounds left base and pleural friction rub. ABDOMEN: normal, bowel sounds present, soft, nontender, nondistended. EXTREMITIES: no clubbing, cyanosis. no edema. PERIPHERAL PULSES: equal. NEUROLOGIC: nonfocal, alert and oriented. Objective Data Active Medications Acetaminophen (Acetaminophen 325 Mg Tablet) 650 mg PO Q6H PRN PRN Reason: Pain, Mild 1-3,fever,headache Albuterol/Ipratropium (Albuterol/Iprat 2.5/0.5mg 3 Ml Ampul.Neb) 3 ml INHALE RQ4H WHILE AWAKE [facility] Last Admin: 04/24/25 20:16 Dose: Not Given Documented By: CHANDANA Non-Admin Reason: Patient Refused Ascorbic Acid (Ascorbic Acid 250 Mg Tablet) 250 mg PO DAILY [facility] Last Admin: 04/24/25 08:44 Dose: 250 mg Documented By: RADHA Atorvastatin Calcium (Atorvastatin Calcium 10 Mg Tablet) 10 mg PO MOWEFR@2100 [facility] Last Admin: 04/23/25 22:24 Dose: 10 mg Documented By: BETTY Calcium Carbonate (Calcium Carbonate 750 Mg Tab.Chew) 750 mg PO Q4H PRN PRN Reason: Heartburn Last Admin: 04/23/25 20:16 Dose: 750 mg Documented By: BETTY Cyanocobalamin (Cyanocobalamin (Vitamin B-12) 100 Mcg Tablet) 50 mcg PO DAILY [facility] Last Admin: 04/24/25 08:45 Dose: 50 mcg Documented By: RADHA Diazepam (Diazepam 5 Mg Tablet) 2.5 mg PO BID PRN PRN Reason: anxiety Last Admin: 04/25/25 04:03 Dose: 2.5 mg Documented By: RAJ Docusate Sodium (Docusate Sodium 100 Mg Capsule) 100 mg PO BID [facility] Last Admin: 04/24/25 19:56 Dose: Not Given Documented By: RAJ Non-Admin Reason: Patient Refused Ferrous Sulfate (Ferrous Sulfate 324 Mg Tablet.) 324 mg PO DAILY [facility] Last Admin: 04/24/25 08:45 Dose: 324 mg Documented By: RADHA Fluticasone Propionate (Fluticasone Propionate Nasal 16 Gm [place]) 2 spray NOSTRIL-B DAILY [facility] Last Admin: 04/24/25 08:46 Dose: Not Given Documented By: RADHA Non-Admin Reason: Patient Refused Fluticasone/Vilanterol (Fluticasone/Vilanterol 200/25 Blst.W.Dev) 1 puff INHALE RDAILY [facility] Last Admin: 04/23/25 11:29 Dose: 1 puff Documented By: DANIEL Folic Acid (Folic Acid 1 Mg Tablet) 1 mg PO DAILY [facility] Last Admin: 04/24/25 08:45 Dose: 1 mg Documented By: RADHA Furosemide (Furosemide 40 Mg Tablet) 40 mg PO BID@0900,1800 [facility]; Protocol Last Admin: 04/24/25 17:58 Dose: 40 mg Documented By: RADHA Levothyroxine Sodium (Levothyroxine Sodium 50 Mcg Tablet) 50 mcg PO SUSA@0600 [facility] Levothyroxine Sodium (Levothyroxine Sodium 25 Mcg Tablet) 25 mcg PO MOTUWETHFR@0600 [facility] Last Admin: 04/25/25 04:02 Dose: 25 mcg Documented By: RAJ Loratadine (Loratadine 10 Mg Tablet) 10 mg PO DAILY [facility] Last Admin: 04/24/25 08:44 Dose: 10 mg Documented By: RADHA Magnesium Hydroxide (Milk Of Magnesia 30 Ml Oral.Susp) 30 ml PO DAILY PRN PRN Reason: Constipation Melatonin (Melatonin 3 Mg Tablet) 6 mg PO BEDTIME PRN PRN Reason: Insomnia Metoprolol Succinate (Metoprolol Succinate Er 50 Mg Tab.Er.24h) 50 mg PO BID [facility]; Protocol Last Admin: 04/24/25 19:55 Dose: 50 mg Documented By: RAJ Montelukast Sodium (Montelukast Sodium 10 Mg Tablet) 10 mg PO BEDTIME [facility] Last Admin: 04/24/25 19:55 Dose: 10 mg Documented By: RAJ Ondansetron HCl (Ondansetron Hcl 4 Mg/2 Ml Vial) 4 mg IVPUSH Q8H PRN PRN Reason: Nausea and Vomiting Polyethylene Glycol (Polyethylene Glycol 3350 17 Gm Powd.Pack) 17 gm PO DAILY PRN PRN Reason: Constipation Potassium Chloride (Potassium Chloride Packet 20 Meq Packet) 20 meq PO DAILY [facility] Last Admin: 04/24/25 08:45 Dose: 20 meq Documented By: RADHA Potassium Chloride (Potassium Chloride Packet 20 Meq Packet) 20 meq PO DAILY [facility] Last Admin: 04/24/25 08:45 Dose: 20 meq Documented By: RADHA Prednisone (Prednisone 2.5 Mg Tablet) 2.5 mg PO Q48H [facility] Last Admin: 04/24/25 08:45 Dose: 2.5 mg Documented By: RADHA Senna (Sennosides 8.6 Mg Tablet) 17.2 mg PO BEDTIME [facility] Last Admin: 04/24/25 19:56 Dose: Not Given Documented By: RAJ Non-Admin Reason: Patient Refused Simethicone (Simethicone 80 Mg Tab.Chew) 80 mg PO QIDWMHS PRN PRN Reason: Abdominal Discomfort Sodium Chloride (0.9 % Sodium Chloride Flush 3 Ml Syringe) 3 ml IVFLUSH QSHIFT [facility] Last Admin: 04/24/25 19:56 Dose: 3 ml Documented By: RAJ Spironolactone (Spironolactone 25 Mg Tablet) 25 mg PO DAILY [facility]; Protocol Last Admin: 04/24/25 08:44 Dose: 25 mg Documented By: RADHA Trazodone HCl (Trazodone Hcl 100 Mg Tablet) 100 mg PO BEDTIME [facility] Last Admin: 04/24/25 22:15 Dose: 100 mg Documented By: RAJ Warfarin Sodium (Warfarin Sodium 2.5 Mg Tablet) 2.5 mg PO DAILY@1800 [facility] Last Admin: 04/24/25 17:58 Dose: 2.5 mg Documented By: RADHA Zinc Sulfate (Zinc Sulfate 220 Mg Capsule) 220 mg PO DAILY [facility] Last Admin: 04/24/25 08:45 Dose: 220 mg Documented By: RADHA Labs 04/23/25 04:02 04/25/25 11:00 Labs: Laboratory Results - last 24 hr 04/24/25 04/24/25 06:44 13:36 PT 17.5 H INR 1.5 H C. difficile Tox B Gene NEGATIVE Assessment and Plan (1) Acute exacerbation of congestive heart failure: Status: Acute Plan 79-year-old female with extensive past medical history to include PE/DVT on Coumadin with antiphospholipid syndrome, mitral clip, HFpEF grade 2 moderate diastolic heart failure, pericardial effusion, Lung CA with lobectomy currently in remission, COPD/from secondhand smoke exposure on 2 L during the day and 2.5 L at night, KANDY on CPAP, anxiety, hypothyroidism, hyperlipidemia, insomnia is being seen in the ED for CHF exacerbation and request for admission made. Patient improved after treatment received in the ED. Acute diastolic CHF, last echo October to 65 % IV Lasix Monitor I/O cardiology following continue metoprolol, aldactone COPD/ history of lung cancer and lobectomy Duo nebs p.r.n., she reports allergy to Duoneb, started on cough meds and lozenges History of PE/DVT on Coumadin with known antiphospholipid syndrome INR 1.5 KANDY CPAP HS HypOthyroidism Continue levothyroxine Anxiety Valium PRN Abd pain, CT check cdif, and stool panel Insomnia Trazodone Pt's care is challenging given multiple concerns , and needing multidisciplinary rx and consults and medication adjustments, poor insight and severe anxiety. Needs more redirection. This note is constructed using voice recognition software. While every effort has been made to ensure accuracy, real estate manager errors may have been included. Quality Stroke Does the patient have a stroke diagnosis?: No Reason for No Anti-thrombotic by Day Two: N/A - Med Ordered VTE Prior VTE?: No VTE Risk Level:: Medical - moderate - high VTE Device Contraindication: N/A - Device Ordered VTE Drug Contraindication: N/A - Med Ordered
[2025-04-25 07:55] LABS: INTERNATIONAL NORM RATIO 1.6 (0.9-1.1); Prothrombin Time 18.5 SEC (10.9-12.4)
[2025-04-25] MEDS: Fluticasone/Vilanterol 200/25 BLST.W.DEV 1 PUFF INHALE (08:29)
--- NOTE | 2025-04-25 08:31 | PC.RT ---
pt does not take duoneb tx's at home. pt has been refusing. spoke with this am and asked to switch to albuterol instead.
--- NOTE | 2025-04-25 08:46 | PC.RT ---
pt refuses to wear [facility] cpap machine therefore order will be dc'd per protocol
[2025-04-25] MEDS: Ferrous Sulfate 324 MG TABLET.DR PO (10:36)
[2025-04-25] MEDS: Metoprolol Succinate ER 50 MG TAB.ER.24H PO ×2 (10:36→21:49)
[2025-04-25] MEDS: 0.9 % Sodium Chloride Flush 3 ML SYRINGE IVFLUSH ×3 (10:37→21:51)
[2025-04-25 11:22] LABS: Alanine Aminotransferase 15 U/L (0-31); Albumin Level 3.5 g/dL (3.5-5.0); Alkaline Phosphatase 62 U/L (39-117); Anion Gap 11 (12-20); Aspartate Amino Transferase 20 U/L (5-31); Blood Urea Nitrogen 24 mg/dL (9-16); Calcium 10.3 mg/dL (8.4-10.2); Carbon Dioxide 31 mmol/L (22-29); Chloride 102 mmol/L (96-108); Creatinine Clr Calc Pharmacy 38.5; Estimated Glomerular Filt Rate 58; Potassium 3.6 mmol/L (3.3-5.1); Sodium 140 mmol/L (135-145); Total Protein 6.2 g/dL (6.5-8.0)
[2025-04-25] MEDS: Albuterol/Iprat 2.5/0.5MG 3 ML AMPUL.NEB INHALE ×2 (11:36→21:40)
--- NOTE | 2025-04-25 11:57 | PM.PNCARD ---
Subjective Subjective Date of Service: 04/25/25 Interval history: Seen examined at bedside. She is saying she is feeling somewhat better but she has pleuritic chest pain on the left side as well as some pressure in her chest and both arms. Not wheezy today. Physical Exam Vital Signs: Last Vital Signs Temp 98.5 F 04/25/25 07:26 Pulse 78 04/25/25 11:39 Resp 18 04/25/25 11:39 BP 106/51 L 04/25/25 10:35 Pulse Ox 99 04/25/25 07:26 O2 Del Method Nasal Cannula 04/25/25 07:26 O2 Flow Rate 2 04/25/25 07:26 Oxygen Flow Rate 2 04/22/25 20:11 BMI result Body Mass Index 22.0 GENERAL APPEARANCE: In no distress. On supplemental oxygen. NECK/THYROID: no carotid bruit, no JVD. SKIN: no suspicious lesions, warm and dry. HEART: no murmurs, regular rate and rhythm, S1, S2 normal. LUNGS: No wheezes today. Decreased breath sounds left base and pleural friction rub. ABDOMEN: normal, bowel sounds present, soft, nontender, nondistended. EXTREMITIES: no clubbing, cyanosis. no edema. PERIPHERAL PULSES: equal. NEUROLOGIC: nonfocal, alert and oriented. Objective Labs and Meds 04/23/25 04:02 04/25/25 11:00 Lab results: Laboratory Results - last 24 hr 04/24/25 04/25/25 04/25/25 13:36 06:43 11:00 Hold Purple Top SEE NOTE PT 18.5 H INR 1.6 H Sodium 140 Potassium 3.6 D Chloride 102 Carbon Dioxide 31 H Anion Gap 11 L BUN 24 H Creatinine 0.93 Estim Creat Clear Calc 38.5 Estimated GFR 58 Random Glucose 137 H Calcium 10.3 H Total Bilirubin 0.4 AST 20 ALT 15 Alkaline Phosphatase 62 Total Protein 6.2 L Albumin 3.5 C. difficile Tox B Gene NEGATIVE Imaging Radiologist's impression: Impressions Abdomen/Pelvis CT 04/24/25 13:35 IMPRESSION: 1. No acute finding in the abdomen or pelvis. 2. Chronic small left loculated pleural effusion and small to moderate-sized pericardial effusion. 3. Sigmoid diverticulosis without evidence of acute diverticulitis. 4. Additional stable ancillary findings as detailed in the body of the report. Electronically signed by: Tremaine Curiel MD 04/24/2025 02:09 PM EDT RP Chest X-Ray 04/25/25 11:17 IMPRESSION: Acute on chronic airspace disease with post surgical/treatment changes in the left lung. Concerning loculated left-sided pleural effusion. Please refer to CT chest dated September 09, 2024. Electronically signed by: Kt Millan MD 04/25/2025 11:35 AM EDT RP Progress Note: A&P Assessment and plan (1) Acute exacerbation of congestive heart failure: Status: Acute (2) Recurrent left pleural effusion: Status: Acute Plan 80 female with multiple medical issues here for ADCHF. Clinically improved and doing better at this point. Continue with oral diuretics and spironolactone. Monitor potassium closely. She was wheezing yesterday and had some nebs given to her. She has some pressure-like feeling in the chest and both arms as well as pleuritic chest pain in the left side. Chest x-ray was repeated which is showing a loculated pleural effusion on the left side. She has a friction rub it appears there is some inflammatory process there. Consider pulmonology involvement. She is well known to Dr. Kelly. Once more stable we can consider adding Jardiance 10 mg daily. We will follow along with you. Time Spent With Patient Time: Total time managing care of this patient today ____ minutes. Progress Note: Quality Stroke Does the patient have a stroke diagnosis?: No Reason for No Anti-thrombotic by Day Two: N/A - Med Ordered Procedures Date of Service Date of Service: 04/25/25
[2025-04-25 12:42] LABS: E. coli EAEC Not Detected (Not Detect.); E. coli EPEC Not Detected (Not Detect.); E. coli ETEC Not Detected (Not Detect.); E. coli STEC Not Detected (Not Detect.); Shigella sp./EIEC Not Detected (Not Detect.)
[2025-04-25] MEDS: Throat Lozenge, Medicated LOZENGE 1 LOZENGE MUCOUS MEM (15:19)
[2025-04-25] MEDS: Eye Irrigation Solution 118 ML IRRIG.SOLN 1 APPL EYE-BOTH (15:19)
[2025-04-25] MEDS: guaiFENesin 200 MG/10 ML 10 ML LIQUID PO ×2 (15:19→21:50)
--- NOTE | 2025-04-25 15:45 | P.CONPL_ITS ---
History of Present Illness History of Present Illness Consult date: 04/25/25 Chief complaint: Acute CHF Exacerbation Narrative: 80-year-old lady with underlying COPD on 2 2.5 L, KANDY on CPAP, remove lung cancer status post left upper lobectomy and chemo/XRT, remote PE/DVT on anticoagulation, antiphospholipid syndrome, congestive heart failure hospitalized on 04/23/2025 with chest pressure and congestive heart failure exacerbation and treated with additional diuresis with some improvement. She also was complaining of recurrent cough intermittently productive of thick whitish mucus. Chest x-ray shows chronic left-sided postop changes and small pleural effusion. Patient appears to be at her baseline respiratory status requiring 2 2-1/2 L of supplemental oxygen and speaking in full sentences Review of Systems 2 Constitutional: Constitutional: Denies daytime sleepiness, Denies excessive sweating, Denies fatigue, Denies fever(s), Denies lethargy, Denies malaise, Denies night sweats, Denies snoring and Denies weight loss Eyes: Eyes: Denies blurry vision and Denies itchy eyes ENT: Denies nasal congestion, Denies post nasal drip, Denies sinus pain, Denies sinus pressure and Denies other ( Thrush) Cardiovascular: Cardiovascular: Denies chest pain, Denies pedal edema, Denies dyspnea, Denies orthopnea and Denies paroxysmal nocturnal dyspnea Respiratory: Respiratory: Reports cough, Denies hemoptysis, Denies excessive phlegm production, Denies dyspnea, Denies snoring and Denies wheezing Gastrointestinal: Gastrointestinal: Denies abdominal pain and Denies heartburn Musculoskeletal: Musculoskeletal: Denies myalgias, Denies arthralgias and Denies joint swelling Integumentary/Breasts: Skin/Breast: Denies rash Neurologic: Denies memory loss and Denies seizure-like activity Psychiatric: Psychiatric: Denies abnormal sleep pattern, Denies anxiety and Denies memory loss Endocrine: Endocrine: Denies excessive sweating, Denies fatigue and Denies heat intolerance Hematologic/Lymphatic: Hematologic/Lymphatic: Denies easy bruising Allergic/Immunologic: Allergic/Immunologic: Denies itchy eyes, Denies seasonal rhinorrhea and Denies wheezing PMFSH Past Medical History Medical History Chest pain Chest pain Ankle pain Chronic hypercapnic respiratory failure KANDY treated with BiPAP COPD (chronic obstructive pulmonary disease) Open wound Warfarin anticoagulation Complex sleep apnea syndrome Leg pain Anemia Tachycardia DVT (deep venous thrombosis) Compression fracture of body of thoracic vertebra ASD (atrial septal defect) Pleuritic chest pain History of COVID-19 Chronic anticoagulation Hypothyroidism GERD (gastroesophageal reflux disease) Hyperlipidemia Hypertension Factor 5 Leiden mutation, heterozygous History of non-ST elevation myocardial infarction (NSTEMI) Hypoxia Anxiety PTSD (post-traumatic stress disorder) Hemoptysis Dyspnea Tracheobronchitis CLARA positive Diverticulitis Allergic bronchitis (HFpEF) heart failure with preserved ejection fraction Subarachnoid bleed Insomnia Anti-phospholipid antibody syndrome Hypogammaglobulinemia Chronic respiratory failure Arterial insufficiency of lower extremity Complex regional pain syndrome i of right lower limb Post herpetic neuralgia Pulmonary hypertension Pericardial effusion Pulmonary emboli Pleural effusion Radiation fibrosis of lung Pneumonitis Pulmonary nodules Lung cancer Family History Family History Sister No problems noted. Mother Cardiovascular disease Daughter Tachycardia Other KANDY (obstructive sleep apnea) Surgical History Surgical History History of colonoscopy History of lung surgery History of tonsillectomy History of hysterectomy S/P mitral valve clip implantation History of cardiac cath Social History Social History Household Members: None Housing: House Do you presently have visiting nurse or other home services: No Alcohol intake: never Comment: stand by assist with ambulation Patient Tobacco Use Status: Never used Tobacco Second Hand Smoke Exposure: No Advance Directives Date on File: 06/15/22 service: No Current occupational status: retired Travel History Ebola Risk: Travel/Contact With Anyone From Affected Area/s: No Has Patient Experienced Ebola Symptoms: No Meds Allergies Allergy/AdvReac Type Severity Reaction Status Date / Time morphine Allergy Severe Itching Verified 04/22/25 20:16 avocado (AVOCADO) Allergy Mild ITCHY Verified 04/22/25 20:16 THROAT, RASH azithromycin (AZITHROMYCIN) Allergy Mild ITCHY Verified 04/22/25 20:16 THROAT, RASH barium iodide (BARIUM IODIDE) Allergy Mild ITCHY Verified 04/22/25 20:16 THROAT, RASH barium sulfate Allergy Mild Itch Verified 04/22/25 20:16 bee pollen (BEE STINGS) Allergy Mild ITCHY Verified 04/22/25 20:16 THROAT, RASH ciprofloxacin (From CIPRO) Allergy Mild ITCHY Verified 04/22/25 20:16 THROAT, RASH clarithromycin (From BIAXIN) Allergy Mild ITCHY Verified 04/22/25 20:16 THROAT, RASH diatrizoate meglumine (From Allergy Mild ITCHY Verified 04/22/25 20:16 GASTROGRAFIN) THROAT, RASH diatrizoate sodium (From Allergy Mild ITCHY Verified 04/22/25 20:16 GASTROGRAFIN) THROAT, RASH diclofenac (From VOLTAREN) Allergy Mild ITCHY Verified 04/22/25 20:16 THROAT, RASH erythromycin base Allergy Mild ITCHY Verified 04/22/25 20:16 (ERYTHROMYCIN BASE) THROAT, RASH gentamicin (GENTAMICIN) Allergy Mild ITCHY Verified 04/22/25 20:16 THROAT, RASH Iodinated Contrast Media Allergy Mild ITCHY Verified 04/22/25 20:16 (IVP DYE) THROAT, RASH levofloxacin (From LEVAQUIN) Allergy Mild ITCHY Verified 04/22/25 20:16 THROAT, RASH metronidazole (From FLAGYL) Allergy Mild ITCHY Verified 04/22/25 20:16 THROAT, RASH moxifloxacin (From AVELOX) Allergy Mild ITCHY Verified 04/22/25 20:16 THROAT, RASH Penicillins (PENICILLINS) Allergy Mild ITCHY Verified 04/22/25 20:16 THROAT, RASH shrimp (SHRIMP) Allergy Mild ITCHY Verified 04/22/25 20:16 THROAT, RASH Sulfa (Sulfonamide Allergy Mild ITCHY Verified 04/22/25 20:16 Antibiotics) (SULFA THROAT, (SULFONAMIDE ANTIBIOTICS)) RASH vancomycin (VANCOMYCIN) Allergy Mild ITCHY Verified 04/22/25 20:16 THROAT, RASH clindamycin AdvReac Intermediate Unknown Verified 04/22/25 20:16 Active Medications: Current Medications Acetaminophen (Acetaminophen 325 Mg Tablet) 650 mg PO Q6H MATHEW Last Admin: 04/25/25 15:20 Dose: Not Given Albuterol/Ipratropium (Albuterol/Iprat 2.5/0.5mg 3 Ml Ampul.Neb) 3 ml INHALE RQ4H WHILE AWAKE MATHEW Last Admin: 04/25/25 11:36 Dose: 3 ml Ascorbic Acid (Ascorbic Acid 250 Mg Tablet) 250 mg PO DAILY MATHEW Last Admin: 04/25/25 10:35 Dose: 250 mg Atorvastatin Calcium (Atorvastatin Calcium 10 Mg Tablet) 10 mg PO MOWEFR@2100 [facility] Last Admin: 04/23/25 22:24 Dose: 10 mg Benzocaine (Throat Lozenge, Medicated Lozenge) 1 lozenge MUCOUS MEM Q2H PRN PRN Reason: Sore Throat Last Admin: 04/25/25 15:19 Dose: 1 lozenge Budesonide (Budesonide 180 Mcg Aer.Pow.Ba) 2 puff INHALE RBID [facility] Calcium Carbonate (Calcium Carbonate 750 Mg Tab.Chew) 750 mg PO Q4H PRN PRN Reason: Heartburn Last Admin: 04/23/25 20:16 Dose: 750 mg Cyanocobalamin (Cyanocobalamin (Vitamin B-12) 100 Mcg Tablet) 50 mcg PO DAILY [facility] Last Admin: 04/25/25 10:34 Dose: 50 mcg Diazepam (Diazepam 5 Mg Tablet) 2.5 mg PO BID PRN PRN Reason: anxiety Last Admin: 04/25/25 04:03 Dose: 2.5 mg Docusate Sodium (Docusate Sodium 100 Mg Capsule) 100 mg PO BID [facility] Last Admin: 04/25/25 10:37 Dose: Not Given Ferrous Sulfate (Ferrous Sulfate 324 Mg Tablet.Dr) 324 mg PO DAILY [facility] Last Admin: 04/25/25 10:36 Dose: 324 mg Fluticasone Propionate (Fluticasone Propionate Nasal 16 Gm Jones) 2 spray NOSTRIL-B DAILY [facility] Last Admin: 04/25/25 10:43 Dose: Not Given Fluticasone/Vilanterol (Fluticasone/Vilanterol 200/25 Blst.W.Dev) 1 puff INHALE RDAILY [facility] Last Admin: 04/25/25 08:29 Dose: 1 puff Folic Acid (Folic Acid 1 Mg Tablet) 1 mg PO DAILY [facility] Last Admin: 04/25/25 10:36 Dose: 1 mg Furosemide (Furosemide 40 Mg Tablet) 40 mg PO BID@0900,1800 [facility]; Protocol Last Admin: 04/25/25 10:35 Dose: 40 mg Guaifenesin (Guaifenesin 200 Mg/10 Ml 10 Ml Liquid) 10 ml PO Q6H [facility] Last Admin: 04/25/25 15:19 Dose: 10 ml Hydroxyzine HCl (Hydroxyzine Hcl 25 Mg Tablet) 25 mg PO Q6H PRN PRN Reason: Anxiety Levothyroxine Sodium (Levothyroxine Sodium 50 Mcg Tablet) 50 mcg PO SUSA@0600 [facility] Levothyroxine Sodium (Levothyroxine Sodium 25 Mcg Tablet) 25 mcg PO MOTUWETHFR@0600 [facility] Last Admin: 04/25/25 04:02 Dose: 25 mcg Lidocaine (Lidocaine 4 % Patch Adh..Patch) 2 patch TRANSDERMA DAILY [facility]; Protocol Last Admin: 04/25/25 15:19 Dose: Not Given Loratadine (Loratadine 10 Mg Tablet) 10 mg PO DAILY [facility] Last Admin: 04/25/25 10:36 Dose: 10 mg Magnesium Hydroxide (Milk Of Magnesia 30 Ml Oral.Susp) 30 ml PO DAILY PRN PRN Reason: Constipation Melatonin (Melatonin 3 Mg Tablet) 6 mg PO BEDTIME PRN PRN Reason: Insomnia Methocarbamol (Methocarbamol 500 Mg Tablet) 500 mg PO QID [facility] Last Admin: 04/25/25 15:19 Dose: Not Given Metoprolol Succinate (Metoprolol Succinate Er 50 Mg Tab.Er.24h) 50 mg PO BID [facility]; Protocol Last Admin: 04/25/25 10:36 Dose: 50 mg Montelukast Sodium (Montelukast Sodium 10 Mg Tablet) 10 mg PO BEDTIME [facility] Last Admin: 04/24/25 19:55 Dose: 10 mg Ondansetron HCl (Ondansetron Hcl 4 Mg/2 Ml Vial) 4 mg IVPUSH Q8H PRN PRN Reason: Nausea and Vomiting Polyethylene Glycol (Polyethylene Glycol 3350 17 Gm Powd.Pack) 17 gm PO DAILY PRN PRN Reason: Constipation Prednisone (Prednisone 2.5 Mg Tablet) 2.5 mg PO Q48H [facility] Last Admin: 04/24/25 08:45 Dose: 2.5 mg Senna (Sennosides 8.6 Mg Tablet) 17.2 mg PO BEDTIME [facility] Last Admin: 04/24/25 19:56 Dose: Not Given Simethicone (Simethicone 80 Mg Tab.Chew) 80 mg PO QIDWMHS PRN PRN Reason: Abdominal Discomfort Sodium Chloride (0.9 % Sodium Chloride Flush 3 Ml Syringe) 3 ml IVFLUSH QSHIFT [facility] Last Admin: 04/25/25 15:20 Dose: 3 ml Spironolactone (Spironolactone 25 Mg Tablet) 25 mg PO DAILY [facility]; Protocol Last Admin: 04/25/25 10:36 Dose: 25 mg Trazodone HCl (Trazodone Hcl 100 Mg Tablet) 100 mg PO BEDTIME [facility] Last Admin: 04/24/25 22:15 Dose: 100 mg Warfarin Sodium (Warfarin Sodium 2.5 Mg Tablet) 2.5 mg PO DAILY@1800 [facility] Last Admin: 04/24/25 17:58 Dose: 2.5 mg Zinc Sulfate (Zinc Sulfate 220 Mg Capsule) 220 mg PO DAILY [facility] Last Admin: 04/25/25 10:36 Dose: 220 mg Home Medications ?Medication ?Instructions ?Recorded ?Confirmed ?Last Taken ?Type CPAP (CPAP Machine/Device) 06/30/22 11/11/24 Unknown History Oxygen Home Use 06/30/22 11/11/24 Unknown H istory nebulizers 06/30/22 11/11/24 Unknown H istory epinephrine 0.3 mg/0.3 mL 0.3 mg IM USEASDIRECTD PRN 0 07/14/22 04/23/25 04/22/25 History injection, auto-injector Allergic Reaction levothyroxine 25 mcg tablet 50 mcg PO SUSA@0600 04/23/25 04/22/25 History (Synthroid) docusate sodium 100 mg capsule 100 mg PO BID 01/14/24 04/23/25 04/22/25 History diazepam 5 mg tablet 2.5 mg PO BID PRN anxiety 04/23/25 04/22/25 History ferrous gluconate 324 mg (38 mg 324 mg PO DAILY 04/23/25 04/22/25 History iron) tablet folic acid 1 mg tablet 1 mg PO DAILY 01/16/2504/2304/22/25 History levothyroxine 25 mcg tablet 25 mcg PO MOTUWETHFR@0600 01/16/25 04/23/25 04/22/25 History (Synthroid) rosuvastatin 10 mg tablet 10 mg PO MOWEFR@2100 5 04/23/25 04/22/25 History warfarin 1 mg tablet (Jantoven) See Rx Instructions .R oute .COMPLEX 01/16/25 04/23/25 04/22/25 History ascorbic acid (vitamin C) 250 mg 250 mg PO DAILY 04/2304/23/25 04/22/25 History tablet cetirizine 10 mg tablet (Zyrtec) 10 mg PO DAILY 04/23/25 Unknown History cyanocobalamin (vitamin B-12) 50 50 mcg PO DAILY 04/2304/23/25 04/22/25 History mcg tablet (Vitamin B-12) riboflavin (vitamin B2) 25 mg 25 mg PO DAILY 04/23/25 04/23/25 04/22/25 History tablet simethicone 80 mg chewable tablet 80 mg PO QIDWMHS PRN Abdominal 04/23/25 04/23/25 04/22/25 History (Gas Relief (simethicone)) Discomfort zinc 50 mg capsule 50 mg PO DAILY 04/23/2504/0904/22/25 History Physical Exam 2 Vital Signs: Vital Signs: Last Vital Signs Temp 98.5 F 04/25/25 15:42 Pulse 85 04/25/25 15:42 Resp 20 04/25/25 15:42 BP 130/59 L 04/25/25 15:42 Pulse Ox 94 04/25/25 15:42 O2 Del Method Room Air 04/25/25 15:42 O2 Flow Rate 2 04/25/25 12:00 Oxygen Flow Rate 2 04/22/25 20:11 BMI result Body Mass Index 22.0 Const: General: no acute distress and alert Nutritional Appearance: not obese Orientation/consciousness: Other orientation findings ( oriented) HEENT: Head: Yes atraumatic Eyes: General: appearance normal, both eyes and all related structures S clerae: sclerae normal EOM: EOMs intact bilaterally Neck: Neck: Yes supple Lymphatic: no lymphadenopathy noted Resp: Effort & Inspection: normal respiratory effort and no use of accessory muscles Auscultation: crackles (Mild bilateral) Cardio: Rate: regular rate Rhythm: regular rhythm Heart sounds: no gallops, no murmurs and no rubs Skin: General skin exam: other ( warm) Extrem: General: No clubbing, No cyanosis and No edema Results Laboratory Findings 04/23/25 04:02 04/25/25 11:00 ABG, PT/INR, D-dimer: PT/INR, D-dimer PT 18.5 SEC (10.9-12.4) H 04/25/25 06:43 INR 1.6 (0.9-1.1) H 04/25/25 06:43 Abnormal lab findings: Abnormal Labs 04/22/25 04/23/25 04/23/25 20:49 04:02 04:16 WBC 11.5 H RBC 3.48 L 3.37 L Hgb 11.5 L 11.2 L Hct 35.9 L 34.7 L MCV 103.2 H 103.0 H MCH 33.2 H Immature Gran % (Auto) 1.4 H 1.7 H Neut % (Auto) 76.8 H 78.6 H Lymph % (Auto) 11.3 L 7.7 L Lymph # (Auto) 0.9 L Abs Immat Gran (auto) 0.15 H 0.19 H Absolute Neuts (auto) 9.0 H PT 16.2 H D INR 1.4 H Potassium 2.9 L* Carbon Dioxide 30 H 33 H Anion Gap 11 L BUN 23 H 20 H Random Glucose Calcium NT-Pro-B Natriuret Pep 1126.0 H Total Protein 6.2 L 04/24/25 04/25/25 04/25/25 06:44 06:43 11:00 WBC RBC Hgb Hct MCV MCH Immature Gran % (Auto) Neut % (Auto) Lymph % (Auto) Lymph # (Auto) Abs Immat Gran (auto) Absolute Neuts (auto) PT 17.5 H 18.5 H INR 1.5 H 1.6 H Potassium Carbon Dioxide 31 H Anion Gap 11 L BUN 24 H Random Glucose 137 H Calcium 10.3 H NT-Pro-B Natriuret Pep Total Protein 6.2 L Assessment and Plan (1) COPD (chronic obstructive pulmonary disease): Qualifiers: COPD type: chronic bronchitis Status: Acute (2) Chronic hypoxic respiratory failure: Status: Acute (3) Recurrent cough: Status: Acute Plan Impression: 80-year-old lady with multiple pulmonary issues including COPD L of supplemental oxygen lung cancer status post chemo/radiation and left upper lobectomy with chronic changes, KANDY on CPAP, DVT on anticoagulation admitted with what appears to be exacerbation of underlying congestive heart failure, now improved to essentially baseline in terms of her respiratory status. Patient does have recurrent cough productive of thick sputum and also she has multiple antibiotic allergies. Recommendation: Would advise against bronchoscopy at this time. Continue patient bronchodilator regimen. Would consider 5-7 day course of doxycycline. Procedures Date of Service Date of Service: 04/25/25
--- NOTE | 2025-04-25 16:14 | MHC.CM.PN ---
Pt c/o feeling weak, she said that she will not go to [facility], DCP: home, with [facility], likely 04/26/25.
[2025-04-26 04:00] VITALS: BP 115/65; PULSE 74; RESP 16; TEMP 36.4; O2SAT 97
[2025-04-26 06:00] VITALS: BMI 21.9
[2025-04-26 06:10] LABS: MANUAL DIFF FLAG NO
[2025-04-26 06:18] LABS: Hematocrit 32.1 % (37.0-47.0); Hemoglobin 10.5 g/dl (12.0-16.0); Imm Gran Abs Auto 0.12 X10*3/uL (0.00-0.03); Imm Gran Pct Auto 1.2 % (0.0-0.4); Lymphocytes Absolute Auto 1.0 X10*3/uL (1.2-4.9); Mean Corpuscular HGB Conc 32.7 g/dl (31.0-35.0); Mean Corpuscular Hemoglobin 33.4 pg (27.0-33.0); Mean Corpuscular Volume 102.2 fL (80.0-98.0); NRBC Abs Auto 0.000 X10*3/uL (0.0-0.012); NRBC Pct Auto 0.0 /100WBC (0.0-0.2); Platelet Count 190 X10*3/uL (160-400); Red Blood Count 3.14 X10*6/uL (4.20-5.50); White Blood Count 10.1 X10*3/uL (4.8-10.8)
[2025-04-26 06:26] LABS: INTERNATIONAL NORM RATIO 2.1 (0.9-1.1); Prothrombin Time 24.6 SEC (10.9-12.4)
[2025-04-26 06:36] LABS: Alanine Aminotransferase 15 U/L (0-31); Albumin Level 3.3 g/dL (3.5-5.0); Alkaline Phosphatase 59 U/L (39-117); Anion Gap 15 (12-20); Aspartate Amino Transferase 21 U/L (5-31); Blood Urea Nitrogen 26 mg/dL (9-16); Calcium 9.8 mg/dL (8.4-10.2); Carbon Dioxide 27 mmol/L (22-29); Chloride 102 mmol/L (96-108); Creatinine Clr Calc Pharmacy 42.7; Estimated Glomerular Filt Rate > 60; Magnesium 2.2 mg/dL (1.6-2.6); Potassium 3.5 mmol/L (3.3-5.1); Sodium 140 mmol/L (135-145); Total Protein 5.9 g/dL (6.5-8.0)
[2025-04-26 08:00] VITALS: BP 113/55; PULSE 74; RESP 18; TEMP 36.2; O2SAT 96
--- NOTE | 2025-04-26 08:13 | HO.PM.IMPN ---
Subjective Subjective Date of Service: 04/26/25 Physical Exam Vital Signs: Vital Signs: Last Vital Signs Temp 97.1 F 04/26/25 08:00 Pulse 74 04/26/25 08:00 Resp 18 04/26/25 08:00 BP 113/55 L 04/26/25 08:00 Pulse Ox 96 04/26/25 08:00 O2 Del Method Nasal Cannula 04/26/25 08:00 O2 Flow Rate 2 04/26/25 08:00 Oxygen Flow Rate 2 04/22/25 20:11 BMI result Body Mass Index 21.9 Objective Data Active Medications Acetaminophen (Acetaminophen 325 Mg Tablet) 650 mg PO Q6H PENDING SALE TO [facility] Last Admin: 04/26/25 02:53 Dose: Not Given Documented By: ROSALBA Non-Admin Reason: Patient Refused Albuterol/Ipratropium (Albuterol/Iprat 2.5/0.5mg 3 Ml Ampul.Neb) 3 ml INHALE RQ4H WHILE AWAKE PENDING SALE TO [facility] Last Admin: 04/25/25 21:40 Dose: 3 ml Documented By: KRIS Ascorbic Acid (Ascorbic Acid 250 Mg Tablet) 250 mg PO DAILY PENDING SALE TO [facility] Last Admin: 04/25/25 10:35 Dose: 250 mg Documented By: RACHELLE Atorvastatin Calcium (Atorvastatin Calcium 10 Mg Tablet) 10 mg PO MOWEFR@2100 PENDING SALE TO [facility] Last Admin: 04/25/25 21:50 Dose: 10 mg Documented By: ROSALBA Benzocaine (Throat Lozenge, Medicated Lozenge) 1 lozenge MUCOUS MEM Q2H PRN PRN Reason: Sore Throat Last Admin: 04/25/25 15:19 Dose: 1 lozenge Documented By: RACHELLE Budesonide (Budesonide 180 Mcg Aer.Pow.Ba) 2 puff INHALE RBID PENDING SALE TO [facility] Last Admin: 04/25/25 21:50 Dose: Not Given Documented By: KRIS Non-Admin Reason: Patient Refused Calcium Carbonate (Calcium Carbonate 750 Mg Tab.Chew) 750 mg PO Q4H PRN PRN Reason: Heartburn Last Admin: 04/23/25 20:16 Dose: 750 mg Documented By: BETTY Cyanocobalamin (Cyanocobalamin (Vitamin B-12) 100 Mcg Tablet) 50 mcg PO DAILY PENDING SALE TO [facility] Last Admin: 04/25/25 10:34 Dose: 50 mcg Documented By: RACHELLE Diazepam (Diazepam 5 Mg Tablet) 2.5 mg PO BID PRN PRN Reason: anxiety Last Admin: 04/26/25 01:55 Dose: 2.5 mg Documented By: ROSALBA Docusate Sodium (Docusate Sodium 100 Mg Capsule) 100 mg PO BID PENDING SALE TO [facility] Last Admin: 04/25/25 21:49 Dose: 100 mg Documented By: ROSALBA Ferrous Sulfate (Ferrous Sulfate 324 Mg Tablet.Dr) 324 mg PO DAILY PENDING SALE TO [facility] Last Admin: 04/25/25 10:36 Dose: 324 mg Documented By: RACHELLE Fluticasone Propionate (Fluticasone Propionate Nasal 16 Gm Bernard) 2 spray NOSTRIL-B DAILY PENDING SALE TO [facility] Last Admin: 04/25/25 10:43 Dose: Not Given Documented By: RACHELLE Non-Admin Reason: Patient Refused Fluticasone/Vilanterol (Fluticasone/Vilanterol 200/25 Blst.W.Dev) 1 puff INHALE RDAILY PENDING SALE TO [facility] Last Admin: 04/25/25 08:29 Dose: 1 puff Documented By: SANTOS Folic Acid (Folic Acid 1 Mg Tablet) 1 mg PO DAILY PENDING SALE TO [facility] Last Admin: 04/25/25 10:36 Dose: 1 mg Documented By: RACHELLE Furosemide (Furosemide 40 Mg Tablet) 40 mg PO BID@0900,1800 PENDING SALE TO [facility]; Protocol Last Admin: 04/25/25 17:52 Dose: 40 mg Documented By: RACHELLE Guaifenesin (Guaifenesin 200 Mg/10 Ml 10 Ml Liquid) 10 ml PO Q6H PENDING SALE TO [facility] Last Admin: 04/26/25 03:26 Dose: Not Given Documented By: ROSALBA Non-Admin Reason: Patient Refused Comments: Patient asked to not be woken up for this medication. Education provided on what this medication is for and patient is aware. Hydroxyzine HCl (Hydroxyzine Hcl 25 Mg Tablet) 25 mg PO Q6H PRN PRN Reason: Anxiety Levothyroxine Sodium (Levothyroxine Sodium 50 Mcg Tablet) 50 mcg PO SUSA@0600 PENDING SALE TO [facility] Last Admin: 04/26/25 05:27 Dose: 50 mcg Documented By: ROSALBA Levothyroxine Sodium (Levothyroxine Sodium 25 Mcg Tablet) 25 mcg PO MOTUWETHFR@0600 PENDING SALE TO [facility] Last Admin: 04/25/25 04:02 Dose: 25 mcg Documented By: RAJ Lidocaine (Lidocaine 4 % Patch Adh..Patch) 2 patch TRANSDERMA DAILY PENDING SALE TO [facility]; Protocol Last Admin: 04/25/25 15:19 Dose: Not Given Documented By: RACHELLE Non-Admin Reason: Patient Refused Loratadine (Loratadine 10 Mg Tablet) 10 mg PO DAILY PENDING SALE TO [facility] Last Admin: 04/25/25 10:36 Dose: 10 mg Documented By: RACHELLE Magnesium Hydroxide (Milk Of Magnesia 30 Ml Oral.Susp) 30 ml PO DAILY PRN PRN Reason: Constipation Melatonin (Melatonin 3 Mg Tablet) 6 mg PO BEDTIME PRN PRN Reason: Insomnia Methocarbamol (Methocarbamol 500 Mg Tablet) 500 mg PO QID PENDING SALE TO [facility] Last Admin: 04/25/25 21:34 Dose: Not Given Documented By: ROSALBA Non-Admin Reason: Patient Refused Metoprolol Succinate (Metoprolol Succinate Er 50 Mg Tab.Er.24h) 50 mg PO BID PENDING SALE TO [facility]; Protocol Last Admin: 04/25/25 21:49 Dose: 50 mg Documented By: ROSALBA Montelukast Sodium (Montelukast Sodium 10 Mg Tablet) 10 mg PO BEDTIME PENDING SALE TO [facility] Last Admin: 04/25/25 21:49 Dose: 10 mg Documented By: ROSALBA Ondansetron HCl (Ondansetron Hcl 4 Mg/2 Ml Vial) 4 mg IVPUSH Q8H PRN PRN Reason: Nausea and Vomiting Polyethylene Glycol (Polyethylene Glycol 3350 17 Gm Powd.Pack) 17 gm PO DAILY PRN PRN Reason: Constipation Prednisone (Prednisone 2.5 Mg Tablet) 2.5 mg PO Q48H PENDING SALE TO [facility] Last Admin: 04/24/25 08:45 Dose: 2.5 mg Documented By: RADHA Senna (Sennosides 8.6 Mg Tablet) 17.2 mg PO BEDTIME PENDING SALE TO [facility] Last Admin: 04/25/25 21:49 Dose: 17.2 mg Documented By: ROSALBA Simethicone (Simethicone 80 Mg Tab.Chew) 80 mg PO QIDWMHS PRN PRN Reason: Abdominal Discomfort Sodium Chloride (0.9 % Sodium Chloride Flush 3 Ml Syringe) 3 ml IVFLUSH QSHIFT PENDING SALE TO [facility] Last Admin: 04/25/25 21:51 Dose: 3 ml Documented By: ROSALBA Spironolactone (Spironolactone 25 Mg Tablet) 25 mg PO DAILY PENDING SALE TO [facility]; Protocol Last Admin: 04/25/25 10:36 Dose: 25 mg Documented By: RACHELLE Trazodone HCl (Trazodone Hcl 100 Mg Tablet) 100 mg PO BEDTIME PENDING SALE TO [facility] Last Admin: 04/25/25 21:53 Dose: 100 mg Documented By: ROSALBA Warfarin Sodium (Warfarin Sodium 2.5 Mg Tablet) 2.5 mg PO DAILY@1800 PENDING SALE TO [facility] Last Admin: 04/25/25 17:52 Dose: 2.5 mg Documented By: RACHELLE Zinc Sulfate (Zinc Sulfate 220 Mg Capsule) 220 mg PO DAILY PENDING SALE TO [facility] Last Admin: 04/25/25 10:36 Dose: 220 mg Documented By: RACHELLE Labs 04/26/25 05:59 04/26/25 05:59 Labs: Laboratory Results - last 24 hr 04/24/25 04/25/25 04/26/25 13:36 11:00 05:59 MCV 102.2 H MCH 33.4 H MCHC 32.7 RDW 13.6 Plt Count 190 MPV 11.0 Immature Gran % (Auto) 1.2 H Neut % (Auto) 75.8 H Lymph % (Auto) 10.0 L [place] % (Auto) 11.1 H Eos % (Auto) 1.3 Baso % (Auto) 0.6 Lymph # (Auto) 1.0 L [place] # (Auto) 1.1 Eos # (Auto) 0.1 Baso # (Auto) 0.1 Abs Immat Gran (auto) 0.12 H Absolute Neuts (auto) 7.6 Absolute Nucleated RBC 0.000 Nucleated RBC % (auto) 0.0 PT 24.6 H D INR 2.1 H Anion Gap 11 L 15 Estim Creat Clear Calc 38.5 42.7 Estimated GFR 58 > 60 Random Glucose 137 H 99 Calcium 10.3 H 9.8 Magnesium 2.2 Total Bilirubin 0.4 0.5 AST 20 21 ALT 15 15 Alkaline Phosphatase 62 59 Total Protein 6.2 L 5.9 L Albumin 3.5 3.3 L Stl C. cayetanensis PCR Not Detected Stool Rotavirus A PCR Not Detected Stl Adenov F 40/41 PCR Not Detected Stool Astrovirus (PCR) Not Detected Stool Campylobacter PCR Not Detected Stool Cryptosporidium PCR Not Detected Stl Sh Tox Pr E STEC PCR Not Detected Stool E coli O157 PCR Not applicable Stl Enterotoxigenic E PCR Not Detected Stool EPEC (PCR) Not Detected Stool EAEC (PCR) Not Detected Stl E. histolytica PCR Not Detected Stool Giardia Lamblia PCR Not Detected Stl P. shigelloides PCR Not Detected Stool Salmonella PCR Not Detected Stool Sapovirus (PCR) Not Detected Stl Shigella/EIEC PCR Not Detected St Y.enterocolitica PCR Not Detected Stool Vibrio (PCR) Not Detected Stl Vibrio cholerae PCR Not Detected Stl Norovirus GI/GII PCR Not Detected Quality Stroke Does the patient have a stroke diagnosis?: No Reason for No Anti-thrombotic by Day Two: N/A - Med Ordered VTE Prior VTE?: No VTE Risk Level:: Medical - moderate - high VTE Device Contraindication: N/A - Device Ordered VTE Drug Contraindication: N/A - Med Ordered
[2025-04-26] MEDS: Fluticasone/Vilanterol 200/25 BLST.W.DEV 1 PUFF INHALE (08:19)
[2025-04-26 09:39] VITALS: BP 106/57; PULSE 75
[2025-04-26] MEDS: guaiFENesin 200 MG/10 ML 10 ML LIQUID PO (09:39)
[2025-04-26] MEDS: Metoprolol Succinate ER 50 MG TAB.ER.24H PO (09:39)
[2025-04-26] MEDS: Ferrous Sulfate 324 MG TABLET.DR PO (09:40)
[2025-04-26] MEDS: 0.9 % Sodium Chloride Flush 3 ML SYRINGE IVFLUSH (09:44)
--- NOTE | 2025-04-26 12:14 | PC.NURSE ---
Patient requesting breathing treatment , patient talking in complete sentences, no complaints of SOB, no increased work of breathing. Patient refused Duoneb. Reached out to provider Jose Alejandro for order change via [employer].
--- NOTE | 2025-04-26 13:10 | P.DS_ITS ---
DS: Providers Provider Date of Service: 04/26/25 Date of admission: 04/23/25 03:04 Date of discharge: 04/26/25 Primary care physician: Caitlyn Bowie MD Consults: 04/23/25 03:46 Consult to Cardiology Routine Consulting Provider: [facility] Reason for consultation: CHF exacerbation history of MitraClip 04/23/25 04:18 Consult to Case Management Routine Comment: Pt req more in home help if possible 04/25/25 14:21 Consult to Pulmonology Routine Consulting Provider: [facility] Reason for consultation: COPD, KANDY, PTH, PE on OAC, lUNG cA, persistent pleuritic pain DS: Diagnosis Discharge Diagnosis (1) Acute exacerbation of congestive heart failure: Status: Acute DS: Summary Hospital Course Hospital Course: AE HFpEF LVEF 55-65% , secondary to advancement of her baseline pulmonary etiologies, we will dietary indiscretions, be a component of anxiety-back to her baseline 2 L O2 daily Pleuritic chest pain pain needs, she multiple reassurances given Grade 2 diastolic heart failure Pericardial effusion chronic stable 79-year-old female with extensive past medical history to include PE/DVT on Coumadin with antiphospholipid syndrome, mitral clip, HFpEF grade 2 moderate diastolic heart failure, pericardial effusion, Lung CA with lobectomy currently in remission, COPD/from secondhand smoke exposure on 2 L during the day and 2.5 L at night, KANDY on CPAP, anxiety, hypothyroidism, hyperlipidemia, insomnia is being seen in the ED for CHF exacerbation and request for admission made. Patient improved after treatment received in the ED. However patient continued to endorse severe anxiety and chest pain, cough, and difficulty breathing which I have addressed with initiating Atarax, chest pain is likely deemed pleuritic as redemonstrated in repeat imaging in pulmonology consult advising her pulmonary advised her have breathing treatments, titrated per her needs. She states she does not like DuoNeb, given her albuterol nebs only, Cepacol lozenges, Robitussin, respiratory treatments. Care challenging as she likely has severe anxiety medically deemed optimized since admission, with diuresis. With cardiology and pulmonary consult we would gladly be she is safe to go home on her current regimen. During this admission, we have initiated on spironolactone, she will likely need Jardiance outpatient by Cardiology follow- up. COPD/ history of lung cancer and lobectomy currently in remission-follow outpatient COPD on 2 L day and 2.5 at night KANDY on CPAP continue home meds Duo nebs p.r.n., she reports allergy to Duoneb (she has multiple allergies), started on cough meds and lozenges , she is being discharged on her home albuterol per her wishes Needs outpatient pulmonary follow-up History of PE/DVT on Coumadin with known antiphospholipid syndrome continued and therapeutic at the time of discharge-no changes in meds have been made. Outpatient Cardiology follow-up HypOthyroidism -Continue levothyroxine Anxiety- Valium PRN Abd pain, CT, diarrhea-GI and C diff panel negative. Symptomatic management with Imodium p.r.n. Insomnia-Trazodone Pt's care is challenging given multiple concerns behavioral issues , and needing/demanding multidisciplinary rx and consults and medication adjustments, poor insight and severe anxiety. Needs more redirection continuously. I have spent more than 1 hour coordinating care with the patient, answering pagers from the staff continuously, to the best of my ability and her satisfaction. This note is constructed using voice recognition software. While every effort has been made to ensure accuracy, engineering technical writer errors may have been included. Time spent discussing smoking cessation with patient: more than 10 minutes (Have spent more than 1 hour total coordinating with the patient, sitting pictures every 2-3 minutes about her ongoing concerns. Address them to the best of my abilities, patient continues to be endorsing multiple medical concerns that are chronic to her, advised her to follow up outpatient.) Status at Discharge Functional status at discharge: uses cane/walker Overall status at discharge: patient is back to baseline Time Attestation Discharge Coordination Time (in mins): 65 mins Quality: Safe Use of Opioids Does Pt have an Active Cancer Diagnosis on the Problem List?: Yes Opioid Measure Date for [facility] Report: 03/27/25 Opioid Measure Time for [facility] Report: 13:21 Quality: Stroke Does the patient have a stroke diagnosis?: No Physical Exam Vital Signs: Vital Signs: Last Vital Signs Temp 97.1 F 04/26/25 08:00 Pulse 75 04/26/25 09:39 Resp 18 04/26/25 08:00 BP 106/57 L 04/26/25 09:39 Pulse Ox 96 04/26/25 08:00 O2 Del Method Nasal Cannula 04/26/25 08:00 O2 Flow Rate 2 04/26/25 08:00 Oxygen Flow Rate 2 04/22/25 20:11 BMI result Body Mass Index 21.9 DS: Data Data Completed and Pending Completed studies during hospitalization [Text1]: Procedures Assistance with Respiratory Ventilation, Less than 24 Consecutive Hours, Continuous Positive Airway Pressure (01/04/24) Excision of Right Lower Leg Skin, External Approach (01/04/24) Extirpation of Matter from Right Lower Leg Skin, External Approach (01/14/24) Labs on day of discharge: Laboratory Results - last 24 hr 04/26/25 05:59 WBC 10.1 RBC 3.14 L Hgb 10.5 L Hct 32.1 L MCV 102.2 H MCH 33.4 H MCHC 32.7 RDW 13.6 Plt Count 190 MPV 11.0 Immature Gran % (Auto) 1.2 H Neut % (Auto) 75.8 H Lymph % (Auto) 10.0 L [place] % (Auto) 11.1 H Eos % (Auto) 1.3 Baso % (Auto) 0.6 Lymph # (Auto) 1.0 L [place] # (Auto) 1.1 Eos # (Auto) 0.1 Baso # (Auto) 0.1 Abs Immat Gran (auto) 0.12 H Absolute Neuts (auto) 7.6 Absolute Nucleated RBC 0.000 Nucleated RBC % (auto) 0.0 PT 24.6 H D INR 2.1 H Sodium 140 Potassium 3.5 Chloride 102 Carbon Dioxide 27 Anion Gap 15 BUN 26 H Creatinine 0.84 Estim Creat Clear Calc 42.7 Estimated GFR > 60 Random Glucose 99 Calcium 9.8 Magnesium 2.2 Total Bilirubin 0.5 AST 21 ALT 15 Alkaline Phosphatase 59 Total Protein 5.9 L Albumin 3.3 L Discharge Plan Discharge Anticipated Discharge Date/Time: 04/26/25 12:57 Patient Disposition: Home Health Service Discharge Diagnosis: AE HFpEF, at her baseline status post diuresis. Referrals: Caitlyn Bowie MD [Primary Care Provider, Internal Medicine] - 1 Week Luis Eduardo Cadet MD [Physician, Cardiology] - 1 Week Henry Kelly MD [Physician, Pulmonology] - 1 Week Discharge Medications: New doxycycline monohydrate 100 mg Capsule 100 mg PO Q12H 10 Days Qty: 20 0RF methocarbamol 500 mg Tablet 500 mg PO QID 10 Days Qty: 40 0RF acetaminophen 325 mg Tablet 650 mg PO Q6H 30 Days Qty: 240 0RF spironolactone 25 mg Tablet 25 mg PO DAILY 30 Days Qty: 30 3RF Protocol: Hold for SBP< HOLD for SBP < : 90 hydroxyzine HCl 25 mg Tablet 25 mg PO Q6H PRN (Reason: Anxiety) Qty: 20 0RF Sore Throat (benzocaine-menth) 15-3.6 mg Lozenge 1 elmira mucous membrane Q2H PRN (Reason: Sore Throat) Qty: 18 0RF Antacid Ext Str (calcium carb) 300 mg (750 mg) Tablet,Chewable 2.5 tab PO Q4H PRN (Reason: Heartburn) Qty: 14 0RF Continued Advair HFA 230-21 mcg/actuation HFA aerosol inhaler 2 puff inhalation BID 90 Days Qty: 36 4RF levocetirizine 5 mg tablet 5 mg PO DAILY 90 Days Qty: 90 3RF trazodone 50 mg tablet 100 mg PO BEDTIME Qty: 180 3RF meclizine 25 mg tablet 25 mg PO Q8H PRN (Reason: dizziness) 10 Days Qty: 30 0RF montelukast 10 mg tablet 10 mg PO DAILY Qty: 90 3RF albuterol sulfate 90 mcg/actuation HFA aerosol inhaler 2 inh inhalation Q6H PRN (Reason: shortness of breath or wheezing) 90 Days Qty: 3 3RF fluticasone propionate 50 mcg/actuation spray,suspension 2 spray intranasal DAILY 90 Days Qty: 3 3RF potassium chloride 20 mEq packet 20 meq PO DAILY 90 Days Qty: 180 3RF metoprolol succinate [Toprol XL] 50 mg tablet extended release 24 hr 50 mg PO BID Qty: 180 3RF furosemide 40 mg tablet 80 mg PO BID Qty: 360 3RF prednisone 2.5 mg tablet 2.5 mg PO Q OTHER DAY Qty: 90 3RF levothyroxine [Synthroid] 25 mcg Tablet 50 mcg PO SUSA@0600 docusate sodium 100 mg Capsule 100 mg PO BID levothyroxine [Synthroid] 25 mcg tablet 25 mcg PO MOTUWETHFR@0600 folic acid 1 mg tablet 1 mg PO DAILY rosuvastatin 10 mg tablet 10 mg PO MOWEFR@2100 warfarin [Jantoven] 1 mg tablet See Rx Instructions .ROUTE .COMPLEX Rx Instructions: 1mg tablet, take 1 - 3 tabs daily depending on clinic instructions and INR checks ferrous gluconate 324 mg (38 mg iron) tablet 324 mg PO DAILY riboflavin (vitamin B2) 25 mg Tablet 25 mg PO DAILY Vitamin B-12 50 mcg Tablet 50 mcg PO DAILY ascorbic acid (vitamin C) 250 mg Tablet 250 mg PO DAILY zinc 50 mg Capsule 50 mg PO DAILY simethicone [Gas Relief (simethicone)] 80 mg tablet,chewable 80 mg PO QIDWMHS PRN (Reason: Abdominal Discomfort) cetirizine [Zyrtec] 10 mg Tablet 10 mg PO DAILY (DME) nebulizers Misc See Rx Instructions .Route Rx Instructions: As directed (DME) CPAP Machine/Device Device See Rx Instructions .Route Rx Instructions: As directed (DME) Oxygen Home Use Kit See Rx Instructions .Route Rx Instructions: As directed epinephrine 0.3 mg/0.3 mL auto-injector 0.3 mg IM USEASDIRECTD PRN (Reason: Allergic Reaction) diazepam 5 mg tablet 2.5 mg PO BID PRN (Reason: anxiety) Discharge Orders: Discharge Order (Routine); Ordered 04/26/25 Ordered By: Olivia Blount Diet: Low salt diet Activity on Discharge: use home o2 as instructed by pulmnonologist Stand Alone Forms: Patient Portal Discharge page Print Language: Danish Activity Restrictions/Additional Instructions: Please use home O2 as instructed by pulmonology Care Plan Goals: Patient has many concerns about her heart and lung which are not new Patient continues to endorse chest pain-pleuritic in etiology she is on optimal medical therapy anticoagulation and bronchodilators and pain regimen and pulmonary hygiene She needs to follow up with pulmonology outpatient crop picker consulted during this admission Heart failure she needs to follow up with Cardiology outpatient for titration of medications. Spironolactone added for GDM T. Jardiance will be initiated outpatient per Cardiology referral Patient was concerned about diarrhea we believe that it is likely secondary to her hospitalization, noninfectious (GI and C diff panel negative done on 04/24/2025) outpatient GI follow-up She has been initiated on Atarax for this admission for anxiety Patient continues to state she does not want to go home, does not want PTOT home with VNA services which he already has, refusing short-term rehab. Disposition quite challenging. Health Concerns: See above Plan of Treatment: See above Assessment: See above Patient Instructions: Heart Failure (DC), Low-Sodium Diet (DC)
--- NOTE | 2025-04-26 13:38 | P.F2F_ITS ---
Service Date Service Date: 04/26/25 Encounter Date of encounter: 04/26/25 Reasons for Services Signs and symptoms assessed: see below Reason for senior living: medication management Reason for physical therapy: home safety and mobility, therapeutic exercises, gait/transfer training, assess need for DME, ADL training and energy conservation Reason for occupational therapy: home safety and mobility, therapeutic exercises, gait/transfer training and ADL training Homebound: Leaving the home is medically contraindicated at this time without the asist of a device and/or another person due th the listed conditions above and below. Reason homebound: unsteady gait / fall risk, shortness of breath at rest and psychologically impaired / unsafe Certification: Based on the above findings, I certify that this patient is confined to the home and needs intermittent senior living care, physical therapy and/or speech therapy, or continues to need occupational therapy. The patient is under my care, and I have initiated the establishment of the plan of care. The patient will be followed by a physician who will periodically review the plan of care. Time Spent With Patient Time: Total time managing care of this patient today ____ minutes.
--- NOTE | 2025-04-26 13:45 | PC.NURSE ---
Patient complain of sharp abdominal cramping, patient having multiple loose bowel movements. Patient reports she thinks it is either from the hospital food or the Spironolactone. Provider Jose Alejandro notified in person at the bedside. Dr. Cadet notified via [employer] that patient does not want to take Spironolactone due to concern of it causing diarrhea, provider okay to hold for now.
--- NOTE | 2025-04-26 14:12 | MHC.CM.PN ---
CM MET WITH PT REGARDING DCP, SHE SAYS SHE KNOWS SHE WAS TOLD SHE IS MEDICALLY CLEARED, BUT DOES NOT FEEL SHE IS READY. SHE REPORTS SHE DID NOT SEE HER SALESPERSON HOUSEHOLD APPLIANCES TODAY, AND WANTS TO SPEAK TO HIM ABOUT THE NEW MED SHE IS ON SHE THINKS THIS IS UPSETTING HER STOMACH. SHE ALSO STATES SHE FEELS WEAK AND WOULD LIKE TO STAY A COUPLE MORE DAYS TO GET STRONGER. CM REMINDED PT THERE IS NO PT HAPPENING IN AN ACUTE HOSPITAL, AND LYING IN BED FOR TWO MORE DAYS WOULD ONLY MAKE HER WEAKER. PT IS REFUSING TO GO TO STR AT THIS TIME, CM REMINDED HER, IF SHE DID NOT WANT TO GO TO STR, SHE WOULD WANT TO AVOID FURTHER DECONDITIONING. LEYLA AGREED TO TELL PTS LEYLA THAT SHE WANTS VNA SERVICES AND MESSAGE HOSPITALIST ABOUT CARDIO F/U AND MED CONCERNS. LEYLA DID REVIEW PTS IMM AND RIGHT TO APPEAL, HOWEVER PT STATED SHE DID NOT FEEL AN APPEAL WOULD BE WORTH IT AND AGREES WITH DC HOME WITH VNA.
[2025-04-26 15:30] VITALS: BP 135/64; PULSE 84; RESP 18; TEMP 37.1; O2SAT 98
== END 2025-04-26 15:40 | disposition home health service (06) | DRG 291 ==
LOC: HO.ED 04-23 00:04 → HO.EDOVER 04-23 03:09 → HO.IMC 04-23 21:51 → HO.S3 04-25 19:30
PROVIDERS: Internal Medicine; Nurse Practitioner Family; Admitting Provider Internal Medicine; Emergency Provider Emergency Medicine; PCP Internal Medicine; Visit Provider Student in an Organized Health Care Education/Training Program
DX: I11.0 Hypertensive heart disease with heart failure (principal); I50.33 Acute on chronic diastolic (congestive) heart failure; D68.61 Antiphospholipid syndrome; Z99.81 Dependence on supplemental oxygen; J44.9 Chronic obstructive pulmonary disease, unspecified; I25.10 Atherosclerotic heart disease of native coronary artery without angina pectoris; Z90.2 Acquired absence of lung [part of]; I27.20 Pulmonary hypertension, unspecified; G47.33 Obstructive sleep apnea (adult) (pediatric); E03.9 Hypothyroidism, unspecified; G47.00 Insomnia, unspecified; Z20.822 Contact with and (suspected) exposure to COVID-19; Z85.118 Personal history of other malignant neoplasm of bronchus and lung; Z79.01 Long term (current) use of anticoagulants; Z79.51 Long term (current) use of inhaled steroids; Z79.890 Hormone replacement therapy; Z79.899 Other long term (current) drug therapy
CPT/HCPCS: 36415; 71045; 74176; 80048; 80053; 83735; 83880; 84484; 85025; 85610; 87493; 87507; 87637; 93005; 93306; 94640; 97162; 97166; 99285; J1938; Q9957

== ENCOUNTER → 2025-04-22 20:23 | Outpatient (BNV) | payer MEDICARE, SELFPAY | PROVIDERS: Admitting Provider Internal Medicine; Emergency Provider Emergency Medicine; PCP Internal Medicine; Visit Provider Internal Medicine Cardiovascular Disease | DX: I45.2 Bifascicular block (principal) | CPT/HCPCS: 93010 ==

== ENCOUNTER → 2025-04-22 20:23 | Outpatient (BNV) | payer MEDICARE, SELFPAY | PROVIDERS: PCP Internal Medicine; Visit Provider Radiology Diagnostic Radiology | DX: I51.7 Cardiomegaly (principal); J90 Pleural effusion, not elsewhere classified | CPT/HCPCS: 71045 ==

== ENCOUNTER 2025-04-23 03:04 | Outpatient (BNV) | payer MEDICARE, SELFPAY | END 2025-04-25 11:17 | PROVIDERS: Admitting Provider Internal Medicine; Emergency Provider Emergency Medicine; PCP Internal Medicine; Visit Provider Radiology Diagnostic Radiology | DX: J18.9 Pneumonia, unspecified organism (principal) | CPT/HCPCS: 71045 ==

== ENCOUNTER 2025-04-23 03:04 | Outpatient (BNV) | payer MEDICARE, SELFPAY | END 2025-04-24 13:35 | PROVIDERS: Admitting Provider Internal Medicine; Emergency Provider Emergency Medicine; PCP Internal Medicine; Visit Provider Radiology Diagnostic Radiology | DX: K57.30 Diverticulosis of large intestine without perforation or abscess without bleeding (principal); J90 Pleural effusion, not elsewhere classified; I31.39 Other pericardial effusion (noninflammatory) | CPT/HCPCS: 74176 ==

== ENCOUNTER → 2025-04-23 03:04 | Outpatient (BNV) | payer MEDICARE, SELFPAY | PROVIDERS: Admitting Provider Internal Medicine; Emergency Provider Emergency Medicine; PCP Internal Medicine; Visit Provider Internal Medicine Pulmonary Disease | DX: J44.9 Chronic obstructive pulmonary disease, unspecified (principal); J96.11 Chronic respiratory failure with hypoxia; R05.8 Other specified cough | CPT/HCPCS: 99223 ==

== ENCOUNTER → 2025-04-23 03:04 | Outpatient (BNV) | payer MEDICARE, SELFPAY | PROVIDERS: Admitting Provider Internal Medicine; Emergency Provider Emergency Medicine; PCP Internal Medicine; Visit Provider Internal Medicine Cardiovascular Disease | DX: I50.33 Acute on chronic diastolic (congestive) heart failure (principal); J90 Pleural effusion, not elsewhere classified | CPT/HCPCS: 99233 ==

== ENCOUNTER → 2025-04-23 03:04 | Outpatient (BNV) | payer MEDICARE, SELFPAY | PROVIDERS: Admitting Provider Internal Medicine; Emergency Provider Emergency Medicine; PCP Internal Medicine; Visit Provider Nurse Practitioner Family | DX: I50.33 Acute on chronic diastolic (congestive) heart failure (principal) | CPT/HCPCS: 99223 ==

== ENCOUNTER 2025-04-28 11:55 | Emergency (ER) | payer MEDICARE, SELFPAY ==
[2025-04-28] VITALS (7 sets, daily range): BP systolic 111–135; BP diastolic 55–82; PULSE 70–85; RESP 16–24; TEMP 36.6–36.9; O2SAT 95–100; BMI 22.9
--- NOTE | ~2025-04-28 | XR_ITS ---
EXAMINATION: XR CHEST CLINICAL INFORMATION: cp/sob COMPARISON: 04/25/2025. 04/22/2025. TECHNIQUE: 2 views of the chest were obtained. FINDINGS: Cardiac enlargement again noted, with likely underlying pericardial effusion as previously seen. Mediastinal contours are stable. Aortic mural calcifications. Mitral valve clip. There is a chronic small the moderate sized left effusion with underlying cicatrization type atelectasis, also chronic. There is likely underlying COPD. There is linear type atelectasis in the right lung base. There is evidence of bronchial wall thickening in the right lung base. Exaggerated thoracic kyphosis with osteopenia. There are mild compression deformities in the upper thoracic region. XR/XR chest 2V IMPRESSION: 1. Stable examination when compared with recent priors. Small to moderate size chronic left effusion with loculation, and associated abutting left basilar cicatrization type atelectasis. 2. Cardiac enlargement, part of which is secondary to a known pericardial effusion. 3. Suspect COPD. There may be bronchial wall thickening in the right lung base. Electronically signed by: Tremaine Curiel MD 04/28/2025 01:27 PM EDT
--- NOTE | 2025-04-28 12:05 | ECG_ITS ---
Test Reason : CP Blood Pressure : */* mmHG Vent. Rate : 82 BPM Atrial Rate : 82 BPM P-R Int : 164 ms QRS Dur : 132 ms QT Int : 398 ms P-R-T Axes : 45 -63 33 degrees QTcB Int : 464 ms Normal sinus rhythm Right bundle branch block Left anterior fascicular block Bifascicular block Minimal voltage criteria for LVH, may be normal variant ( R in aVL ) Abnormal ECG When compared with ECG of 22-Apr-2025 20:27, No significant change was found Referred By: Generic ED Physician Electronically Signed By: INGRID TILLMAN MD
--- NOTE | 2025-04-28 12:21 | ED.CHESTPAIN ---
HPI - Chest Pain General Chief Complaint: Chest Pain Stated Complaint: Chest pain, SOB Time Seen by Provider: 04/28/25 12:16 Source: patient, EMS, RN notes reviewed and old records reviewed Mode of arrival: EMS History of Present Illness ED Provider: Joann Logan PA-C HPI narrative: 80-year-old female with a past medical history of COPD on home O2, sleep apnea, complex regional pain syndrome, CAD, CHF, presenting to the ED via EMS complaining of chest tightness and dyspnea x few days. Patient was recently admitted to our facility, discharged on 04/26 s/p CHF exacerbation, states symptoms have been persistent since admission, worsening today. Denies cough, pedal edema, nausea/vomiting, lightheadedness/dizziness, abdominal pain. MD complaint: chest heaviness Related Data Home Medications ?Medication ?Instructions ?Recorded ?Confirmed CPAP (CPAP Machine/Device) 06/30/22 11/11/24 Oxygen Home Use 06/30/22 11/11/24 nebulizers 06/30/22 11/11/24 epinephrine 0.3 mg/0.3 mL 0.3 mg IM USEASDIRECTD PRN 07/14/22 04/23/25 injection, auto-injector Allergic Reaction levothyroxine 25 mcg tablet 50 mcg PO SUSA@0600 01/05/24 04/23/25 (Synthroid) docusate sodium 100 mg capsule 100 mg PO BID 01/14/24 04/23/25 diazepam 5 mg tablet 2.5 mg PO BID PRN anxiety 11/21/24 04/23/25 ferrous gluconate 324 mg (38 mg 324 mg PO DAILY 01/16/25 04/23/25 iron) tablet folic acid 1 mg tablet 1 mg PO DAILY 01/16/25 04/23/25 levothyroxine 25 mcg tablet 25 mcg PO MOTUWETHFR@0600 01/16/25 04/23/25 (Synthroid) rosuvastatin 10 mg tablet 10 mg PO MOWEFR@2100 01/16/25 04/23/25 warfarin 1 mg tablet (Jantoven) See Rx Instructions .Route .COMPLEX 01/16/25 04/23/25 ascorbic acid (vitamin C) 250 mg 250 mg PO DAILY 04/23/25 04/23/25 tablet cetirizine 10 mg tablet (Zyrtec) 10 mg PO DAILY 04/23/25 04/23/25 cyanocobalamin (vitamin B-12) 50 50 mcg PO DAILY 04/23/25 04/23/25 mcg tablet (Vitamin B-12) riboflavin (vitamin B2) 25 mg 25 mg PO DAILY 04/23/25 04/23/25 tablet simethicone 80 mg chewable tablet 80 mg PO QIDWMHS PRN Abdominal 04/23/25 04/23/25 (Gas Relief (simethicone)) Discomfort zinc 50 mg capsule 50 mg PO DAILY 04/23/25 04/23/25 Previous Rx's ?Medication ?Instructions ?Recorded Advair HFA 230 mcg-21 2 puff inhalation BID 90 days #36 03/13/24 mcg/actuation aerosol inhaler grams (fluticasone propion-salmeterol) levocetirizine 5 mg tablet 5 mg PO DAILY 90 days #90 tabs 05/23/24 trazodone 50 mg tablet 100 mg (2 x 50 mg) PO BEDTIME #180 07/01/24 tabs meclizine 25 mg tablet 25 mg PO Q8H PRN dizziness 10 days 07/22/24 #30 tabs montelukast 10 mg tablet 10 mg PO DAILY #90 tabs 08/24/24 albuterol sulfate 90 mcg/actuation 2 inh inhalation Q6H PRN shortness 11/05/24 aerosol inhaler of breath or wheezing 90 days #3 ea fluticasone propionate 50 2 spray intranasal DAILY 90 days 11/05/24 mcg/actuation nasal #3 ea spray,suspension potassium chloride 20 mEq oral 20 meq PO DAILY 90 days #180 04/01/25 packet packets metoprolol succinate 50 mg 50 mg PO BID #180 tabs 04/08/25 tablet,extended release 24 hr (Toprol XL) furosemide 40 mg tablet 80 mg (2 x 40 mg) PO BID #360 tabs 04/10/25 prednisone 2.5 mg tablet 2.5 mg PO Q OTHER DAY #90 tabs 04/22/25 acetaminophen 325 mg tablet 650 mg (2 x 325 mg) PO Q6H 30 days 04/26/25 #240 tabs benzocaine 15 mg-menthol 3.6 mg 1 elmira mucous membrane Q2H PRN Sore 04/26/25 lozenges (Sore Throat (benzocaine Throat #18 ea with menthol)) calcium carbonate (Antacid Ext Str 2.5 tab PO Q4H PRN Heartburn #14 04/26/25 (calcium carb)) tabs doxycycline monohydrate 100 mg 100 mg PO Q12H 10 days #20 caps 04/26/25 capsule hydroxyzine HCl 25 mg tablet 25 mg PO Q6H PRN Anxiety #20 tabs 04/26/25 methocarbamol 500 mg tablet 500 mg PO QID 10 days #40 tabs 04/26/25 Allergies Allergy/AdvReac Type Severity Reaction Status Date / Time morphine Allergy Severe Itching Verified 04/28/25 12:40 avocado (AVOCADO) Allergy Mild ITCHY Verified 04/28/25 12:40 THROAT, RASH azithromycin (AZITHROMYCIN) Allergy Mild ITCHY Verified 04/28/25 12:40 THROAT, RASH barium iodide (BARIUM IODIDE) Allergy Mild ITCHY Verified 04/28/25 12:40 THROAT, RASH barium sulfate Allergy Mild Itch Verified 04/28/25 12:40 bee pollen (BEE STINGS) Allergy Mild ITCHY Verified 04/28/25 12:40 THROAT, RASH ciprofloxacin (From CIPRO) Allergy Mild ITCHY Verified 04/28/25 12:40 THROAT, RASH clarithromycin (From BIAXIN) Allergy Mild ITCHY Verified 04/28/25 12:40 THROAT, RASH diatrizoate meglumine (From Allergy Mild ITCHY Verified 04/28/25 12:40 GASTROGRAFIN) THROAT, RASH diatrizoate sodium (From Allergy Mild ITCHY Verified 04/28/25 12:40 GASTROGRAFIN) THROAT, RASH diclofenac (From VOLTAREN) Allergy Mild ITCHY Verified 04/28/25 12:40 THROAT, RASH erythromycin base Allergy Mild ITCHY Verified 04/28/25 12:40 (ERYTHROMYCIN BASE) THROAT, RASH gentamicin (GENTAMICIN) Allergy Mild ITCHY Verified 04/28/25 12:40 THROAT, RASH Iodinated Contrast Media Allergy Mild ITCHY Verified 04/28/25 12:40 (IVP DYE) THROAT, RASH levofloxacin (From LEVAQUIN) Allergy Mild ITCHY Verified 04/28/25 12:40 THROAT, RASH metronidazole (From FLAGYL) Allergy Mild ITCHY Verified 04/28/25 12:40 THROAT, RASH moxifloxacin (From AVELOX) Allergy Mild ITCHY Verified 04/28/25 12:40 THROAT, RASH Penicillins (PENICILLINS) Allergy Mild ITCHY Verified 04/28/25 12:40 THROAT, RASH shrimp (SHRIMP) Allergy Mild ITCHY Verified 04/28/25 12:40 THROAT, RASH Sulfa (Sulfonamide Allergy Mild ITCHY Verified 04/28/25 12:40 Antibiotics) (SULFA THROAT, (SULFONAMIDE ANTIBIOTICS)) RASH vancomycin (VANCOMYCIN) Allergy Mild ITCHY Verified 04/28/25 12:40 THROAT, RASH clindamycin AdvReac Intermediate Unknown Verified 04/28/25 12:40 Review of Systems Review of Systems: Yes all other systems are reviewed and are negative Constitutional: Constitutional: Reports as per [facility] Past Medical History Attestation statement: The following information was validated with the patient. Source: old records reviewed Medical History Chest pain Chest pain Ankle pain Chronic hypercapnic respiratory failure KANDY treated with BiPAP COPD (chronic obstructive pulmonary disease) Open wound Warfarin anticoagulation Complex sleep apnea syndrome Leg pain Anemia Tachycardia DVT (deep venous thrombosis) Compression fracture of body of thoracic vertebra ASD (atrial septal defect) Pleuritic chest pain History of COVID-19 Chronic anticoagulation Hypothyroidism GERD (gastroesophageal reflux disease) Hyperlipidemia Hypertension Factor 5 Leiden mutation, heterozygous History of non-ST elevation myocardial infarction (NSTEMI) Hypoxia Anxiety PTSD (post-traumatic stress disorder) Hemoptysis Dyspnea Tracheobronchitis CLARA positive Diverticulitis Allergic bronchitis (HFpEF) heart failure with preserved ejection fraction Subarachnoid bleed Insomnia Anti-phospholipid antibody syndrome Hypogammaglobulinemia Chronic respiratory failure Arterial insufficiency of lower extremity Complex regional pain syndrome i of right lower limb Post herpetic neuralgia Pulmonary hypertension Pericardial effusion Pulmonary emboli Pleural effusion Radiation fibrosis of lung Pneumonitis Pulmonary nodules Lung cancer Surgical History History of colonoscopy History of lung surgery History of tonsillectomy History of hysterectomy S/P mitral valve clip implantation History of cardiac cath Family History Family History Sister No problems noted. Mother Cardiovascular disease Daughter Tachycardia Other KANDY (obstructive sleep apnea) Social History Social History Household Members: None Housing: House Do you presently have visiting nurse or other home services: No Alcohol intake: never Comment: stand by assist with ambulation Patient Tobacco Use Status: Never used Tobacco Smoked in Last 30 Days: No Second Hand Smoke Exposure: No Use of substances other than those prescribed or required for medical reasons: No Advance Directives: Yes Advance Directives on File: Yes Advance Directives Date on File: 06/15/22 Do you have a plan to hurt others: No Plan service: No Current occupational status: retired Physical Exam Vital Signs: Vital Signs: Last Vital Signs Temp 98.2 F 04/28/25 19:05 Pulse 85 04/28/25 19:05 Resp 16 04/28/25 19:05 BP 132/55 L 04/28/25 19:05 Pulse Ox 98 04/28/25 19:05 O2 Del Method Room Air 04/28/25 19:05 O2 Flow Rate 2 04/28/25 14:27 Oxygen Flow Rate 2 04/28/25 12:35 BMI result Body Mass Index 22.9 Const: General: cooperative, healthy appearing and no acute distress Orientation/consciousness: patient oriented x3 Limitations: no limitations HEENT: Head: Yes normal to inspection and Yes atraumatic Ears: hearing grossly normal bilaterally General nose exam: Normal external nose present Face and sinus: Yes normal facial exam Eyes: General: appearance normal, both eyes and all related structures EOM: EOMs intact bilaterally Neck: Neck: Yes normal visual inspection and Yes no meningeal signs Resp: Effort & Inspection: normal respiratory effort and no respiratory distress Auscultation: clear to auscultation bilaterally and no wheezes Cardio: Rate: regular rate Heart sounds: S1 normal heart sound present and S2 normal heart sound present GI: Inspection: Yes normal to inspection Palpation (GI): Soft to palpation, nontender, no guarding and not rigid Skin: Rashes: no rashes Wounds: no wounds Neuro: General: patient oriented x3, tone normal and no meningeal signs Cranial nerves: Yes CN's II-XII intact bilaterally Gait exam (Neuro): Normal gait present Extrem: General: Yes normal to inspection and Yes no pedal edema Course Course Course Narrative: -1400--no leukocytosis. H/H stable. Initial troponin 15 > will obtain repeat -BNP 872.6 >> improved from priors. Low suspicion for acute CHF at this time XR chest 2V IMPRESSION: 1. Stable examination when compared with recent priors. Small to moderate size chronic left effusion with loculation, and associated abutting left basilar cicatrization type atelectasis. 2. Cardiac enlargement, part of which is secondary to a known pericardial effusion. 3. Suspect COPD. There may be bronchial wall thickening in the right lung base. > patient requesting her home dose of Lasix, 80 mg ordered. Takes 80 mg b.i.d. -1712--repeat troponin without significant rise. [place] unlikely. Patient is safe for discharge home at this time. Results discussed with patient including worrisome signs and symptoms and strict return precautions, and when to return to the emergency department. They verbalized understanding and feel safe for discharge at this time. Medications Administered Discontinued Medications Generic Name Dose Route Start Last Admin Trade Name Freq PRN Reason Stop Dose Admin Furosemide 80 mg 04/28/25 16:25 04/28/25 16:44 Furosemide 40 Mg Tablet PO 04/28/25 16:26 80 mg ONCE ONE Administration Protocol Medical Decision Making Medical Decision Making [facility] Narrative: 80-year-old female with a past medical history of COPD on home O2, sleep apnea, complex regional pain syndrome, CAD, CHF, presenting to the ED via EMS complaining of chest tightness and dyspnea x few days. On exam vital signs stable, NAD, nontoxic appearing, lungs CTA, no pedal edema appreciated. Concern for CHF vs viral illness vs atypical ACS. Lower suspicion for pneumonia, AAA, dissection, PE Plan: EKG, labs, CXR, viral testing Please refer to course for remaining clinical decision making, interpretation of labs/imaging results, and discussions with consultants and/or family members. Differential Diagnosis Differential Diagnoses: The differential diagnosis associated with the presentation includes As above Admission/Observation Consideration of admission/observation: Escalation of care including admission/observation considered Lab Data [facility] Lab Attestation statement: I reviewed the patient's lab results. 04/28/25 12:53 04/28/25 12:53 Labs: Lab Results 04/28/25 04/28/25 Range/Units 12:53 16:17 WBC 10.3 (4.8-10.8) X10*3/uL RBC 3.41 L (4.20-5.50) X10*6/uL Hgb 11.3 L (12.0-16.0) g/dl Hct 34.4 L (37.0-47.0) % MCV 100.9 H (80.0-98.0) fL MCH 33.1 H (27.0-33.0) pg MCHC 32.8 (31.0-35.0) g/dl RDW 13.2 (11.0-16.0) % Plt Count 218 (160-400) X10*3/uL MPV 11.1 (9.4-12.3) fL Immature Gran % (Auto) 1.1 H (0.0-0.4) % Neut % (Auto) 80.9 H (45-73) % Lymph % (Auto) 7.6 L (20-40) % [place] % (Auto) 9.6 (2-11) % Eos % (Auto) 0.4 (0-4) % Baso % (Auto) 0.4 (0-2) % Lymph # (Auto) 0.8 L (1.2-4.9) X10*3/uL [place] # (Auto) 1.0 (0.1-1.2) X10*3/uL Eos # (Auto) 0.0 (0.0-0.4) X10*3/uL Baso # (Auto) 0.0 (0.0-0.2) X10*3/uL Abs Immat Gran (auto) 0.11 H (0.00-0.03) X10*3/uL Absolute Neuts (auto) 8.4 H (2.0-8.3) x10*3/uL Absolute Nucleated RBC 0.000 (0.0-0.012) X10*3/uL Nucleated RBC % (auto) 0.0 (0.0-0.2) /100WBC PT 24.4 H (10.9-12.4) SEC INR 2.1 H (0.9-1.1) Sodium 136 (135-145) mmol/L Potassium 3.9 (3.3-5.1) mmol/L Chloride 99 (96-108) mmol/L Carbon Dioxide 27 (22-29) mmol/L Anion Gap 14 (12-20) BUN 25 H (9-16) mg/dL Creatinine 0.93 (0.5-1.4) mg/dL Estim Creat Clear Calc 36.8 Estimated GFR 58 Random Glucose 99 (60-115) mg/dL Calcium 10.5 H D (8.4-10.2) mg/dL Magnesium 2.3 (1.6-2.6) mg/dL Total Bilirubin 0.4 (0.0-1.0) mg/dL Direct Bilirubin 0.2 (0.0-0.5) mg/dL AST 25 (5-31) U/L ALT 14 (0-31) U/L Alkaline Phosphatase 65 (39-117) U/L Troponin I High Sens 15.0 14.8 (<3.5-17.0) ng/L NT-Pro-B Natriuret Pep 872.6 H (<300) pg/mL Total Protein 6.8 (6.5-8.0) g/dL Albumin 3.8 (3.5-5.0) g/dL Influenza Type A (PCR) NEGATIVE (Negative) Influenza Type B (PCR) NEGATIVE (Negative) RSV RNA Qual (PCR) NEGATIVE (Negative) SARS-CoV-2 RNA (RT-PCR) NEGATIVE (Negative) Independent Interpretation I performed an independent interpretation of an: EKG and Plain X-Ray Radiology Impression Discussion of test interpretation with radiology: I have reviewed the radiologist's reading. Independent Historian Clinical information obtained from an independent historian. History obtained from or confirmed by: EMS External Record Review External record reviewed: Inpatient record, Office record, Outpatient record, Prior outpatient labs, Prior outpatient radiology, Primary care record and Outside ED record Tests considered The following testing was considered but not selected: As above Prescription Management I considered prescription management with: Other Chronic Conditions Patient?s care impacted by: Other (CHF, COPD) Social Determinants Patient?s care significantly limited by Social Determinants of Health including: Other Social Determinant of Health Discharge Plan Discharge Clinical Impression: Atypical chest pain Patient Disposition: Home, Self-Care Instructions: Noncardiac Chest Pain (ED) Additional Instructions: Your blood work and imaging studies are reassuring Continue home prescribed medications. Please have close follow up with your primary care doctor as well as your home security alarm installer If her symptoms persist or worsen, you have constant worsening chest pain, shortness of breath, or swelling in your legs return to the ED Prescriptions: No Action Advair HFA 230-21 mcg/actuation HFA aerosol inhaler 2 puff inhalation BID 90 Days Qty: 36 4RF levocetirizine 5 mg tablet 5 mg PO DAILY 90 Days Qty: 90 3RF trazodone 50 mg tablet 100 mg PO BEDTIME Qty: 180 3RF meclizine 25 mg tablet 25 mg PO Q8H PRN (Reason: dizziness) 10 Days Qty: 30 0RF montelukast 10 mg tablet 10 mg PO DAILY Qty: 90 3RF albuterol sulfate 90 mcg/actuation HFA aerosol inhaler 2 inh inhalation Q6H PRN (Reason: shortness of breath or wheezing) 90 Days Qty: 3 3RF fluticasone propionate 50 mcg/actuation spray,suspension 2 spray intranasal DAILY 90 Days Qty: 3 3RF potassium chloride 20 mEq packet 20 meq PO DAILY 90 Days Qty: 180 3RF metoprolol succinate [Toprol XL] 50 mg tablet extended release 24 hr 50 mg PO BID Qty: 180 3RF furosemide 40 mg tablet 80 mg PO BID Qty: 360 3RF prednisone 2.5 mg tablet 2.5 mg PO Q OTHER DAY Qty: 90 3RF levothyroxine [Synthroid] 25 mcg Tablet 50 mcg PO SUSA@0600 docusate sodium 100 mg Capsule 100 mg PO BID levothyroxine [Synthroid] 25 mcg tablet 25 mcg PO MOTUWETHFR@0600 folic acid 1 mg tablet 1 mg PO DAILY rosuvastatin 10 mg tablet 10 mg PO MOWEFR@2100 warfarin [Jantoven] 1 mg tablet See Rx Instructions .ROUTE .COMPLEX Rx Instructions: 1mg tablet, take 1 - 3 tabs daily depending on clinic instructions and INR checks ferrous gluconate 324 mg (38 mg iron) tablet 324 mg PO DAILY riboflavin (vitamin B2) 25 mg Tablet 25 mg PO DAILY Vitamin B-12 50 mcg Tablet 50 mcg PO DAILY ascorbic acid (vitamin C) 250 mg Tablet 250 mg PO DAILY zinc 50 mg Capsule 50 mg PO DAILY simethicone [Gas Relief (simethicone)] 80 mg tablet,chewable 80 mg PO QIDWMHS PRN (Reason: Abdominal Discomfort) cetirizine [Zyrtec] 10 mg Tablet 10 mg PO DAILY doxycycline monohydrate 100 mg Capsule 100 mg PO Q12H 10 Days Qty: 20 0RF methocarbamol 500 mg Tablet 500 mg PO QID 10 Days Qty: 40 0RF acetaminophen 325 mg Tablet 650 mg PO Q6H 30 Days Qty: 240 0RF hydroxyzine HCl 25 mg Tablet 25 mg PO Q6H PRN (Reason: Anxiety) Qty: 20 0RF Sore Throat (benzocaine-menth) 15-3.6 mg Lozenge 1 elmira mucous membrane Q2H PRN (Reason: Sore Throat) Qty: 18 0RF Antacid Ext Str (calcium carb) 300 mg (750 mg) Tablet,Chewable 2.5 tab PO Q4H PRN (Reason: Heartburn) Qty: 14 0RF (DME) [facility] See Rx Instructions .Route Rx Instructions: As directed (DME) CPAP Machine/Device Device See Rx Instructions .Route Rx Instructions: As directed (DME) Oxygen Home Use Kit See Rx Instructions .Route Rx Instructions: As directed epinephrine 0.3 mg/0.3 mL auto-injector 0.3 mg IM USEASDIRECTD PRN (Reason: Allergic Reaction) diazepam 5 mg tablet 2.5 mg PO BID PRN (Reason: anxiety) Referrals: [facility] [Provider Group] - 1 week Caitlyn Bowie MD [Primary Care Provider, Internal Medicine] - 2 days Interventions: ED Discharge Assessment Last Done: 04/28/25 19:05 Discharge Date/Time: 04/28/25 19:05 Print Language: Nicaraguan
[2025-04-28 12:58] LABS: MANUAL DIFF FLAG NO
[2025-04-28 13:03] LABS: Hematocrit 34.4 % (37.0-47.0); Hemoglobin 11.3 g/dl (12.0-16.0); Imm Gran Abs Auto 0.11 X10*3/uL (0.00-0.03); Imm Gran Pct Auto 1.1 % (0.0-0.4); Lymphocytes Absolute Auto 0.8 X10*3/uL (1.2-4.9); Mean Corpuscular HGB Conc 32.8 g/dl (31.0-35.0); Mean Corpuscular Hemoglobin 33.1 pg (27.0-33.0); Mean Corpuscular Volume 100.9 fL (80.0-98.0); NRBC Abs Auto 0.000 X10*3/uL (0.0-0.012); NRBC Pct Auto 0.0 /100WBC (0.0-0.2); Platelet Count 218 X10*3/uL (160-400); Red Blood Count 3.41 X10*6/uL (4.20-5.50); White Blood Count 10.3 X10*3/uL (4.8-10.8)
[2025-04-28 13:11] LABS: INTERNATIONAL NORM RATIO 2.1 (0.9-1.1); Prothrombin Time 24.4 SEC (10.9-12.4)
[2025-04-28 13:25] LABS: Alanine Aminotransferase 14 U/L (0-31); Albumin Level 3.8 g/dL (3.5-5.0); Alkaline Phosphatase 65 U/L (39-117); Anion Gap 14 (12-20); Aspartate Amino Transferase 25 U/L (5-31); Blood Urea Nitrogen 25 mg/dL (9-16); Calcium 10.5 mg/dL (8.4-10.2); Carbon Dioxide 27 mmol/L (22-29); Chloride 99 mmol/L (96-108); Creatinine Clr Calc Pharmacy 36.8; Estimated Glomerular Filt Rate 58; Magnesium 2.3 mg/dL (1.6-2.6); Potassium 3.9 mmol/L (3.3-5.1); Sodium 136 mmol/L (135-145); Total Protein 6.8 g/dL (6.5-8.0)
[2025-04-28 13:29] LABS: Troponin-I High Sensitivity 15.0 ng/L (<3.5-17.0)
[2025-04-28 13:37] LABS: NT Pro B Type Natriuretic Pept 872.6 pg/mL (<300)
[2025-04-28 13:48] LABS: Resp Syncy Virus RNA Qual PCR NEGATIVE (Negative); SARS COV2 PCR INHOUSE NEGATIVE (Negative)
--- NOTE | 2025-04-28 15:01 | PC.NURSE ---
Patient performed ambulation trial 100% RA before beginning 95% when ambulating denies SOB Patient returned to bed on RA 95% denies SOB
--- OUTSIDE RECORDS SUMMARY | 2025-04-28 16:29 | XMS_ITS | Clinical Summary ---
Author Organization [facility] Address [address] [place] [phone] Phone Care Team Providers Care Geophysical Support Specialist Name Role Phone Caitlyn Bowie [...] (12/25/2021 4:22 PM EDT): Followed closely by creative strategist-Dr. Ronald Mills at [facility] hematology- advised to continue Coumadin [...] (09/09/2021 10:42 PM EST): Followed closely by creative strategist-Dr. Ronald Mills at [facility] hematology- last seen on 08/05/2021 [...] anticoagulation clinic to keep INR at 1.5-2.0. meterman current use of systemic steroids 09/09 Assessment & Plan (12/10/2021 10:38 AM EDT): Carefully continue alternating low dosing as prescribed by her transportation planning engineer and consider gentle taper when ready. Daily [...] alternating low dosing as prescribed by her transportation planning engineer and consider gentle taper when ready. Daily [...] 03/18/2013 Heterozygous factor V Leiden mutation 03/18/2013 Immunizations Immunization Administration Dates Next Due Influenza, Unspecified Formulation 05/01/2009([place]urd[place]d: Patient Decision) Pneumococcal polysaccharide PPSV23 05/01/2009([place]urdickd: Patient [...] 11:40 AM EST Office Visit [facility] [address] [place] [address] [place] [address] Anna Ellis MD [address] [place] [address] [address] [facility] [place] [address] Health Maintenance Due Date Last Done Comments [...] MD LAB BLOOD ORDERABLES F inal Result [facility] [address] [place] [address] from Last 3 Months or Most Recently Relevant to Health Maintenance Insurance MEDICARE PART A & B [facility] MEDEX SUPPLEMENT HEALTH SAFETY [facility] MEDICARE PART A & B [facility] MEDEX SUPPLEMENT HEALTH [facility]AFETY [facility] MEDICARE PART A & B [facility] MEDEX SUPPLEMENT HEALTH SAFETY [facility] F[facility] MEDICARE PART A & B [facility] MEDEX SUPPLEMENT [facility] SAFETY NET FULL FOUNDATIONS BEHAVIORAL HEALTH MEDICARE PART A & B [facility] MEDEX SUPPLEMENT HEALTH SAFETY [facility] [facility] MEDICARE PART A & B [facility] MEDEX SUPPLEMENT [facility] NET FULL FOUNDATIONS BEHAVIORAL HEALTH MEDICARE PART A & B [facility] MEDEX SUPPLEMENT HEALTH SAFETY [facility] F[facility] MEDICARE PART A & B [facility] MEDEX SUPPLEMENT [facility] NET [facility]ULL [facility] MEDICARE PART A & B [facility] MEDEX SUPPLEMENT [facility] SAFETY NET [employer] [facility] Care Teams Geophysical Support Specialist Relationship Specialty Start Date End Date Caitlyn Bowie MD [address] [place] [address] PCP - General Internal Medicine 09/09/21 Additional Source Comments The information contained in this document represents components of the legal health record. It is not the complete legal health record.[facility]
--- OUTSIDE RECORDS SUMMARY | 2025-04-28 16:29 | XMS_ITS | Encounter Summary ---
Author Organization [facility] Address [address] [place] [address] Phone Care Team Providers Care Mine Laborer Name Role Phone Caitlyn Bowie MD Primary Care Provider [phone]- [phone] Encounter Details Date Type Department Care Team (Late Contact Info) Description 03/17/2025 Documentation Only [facility] [address] [place] [address] Marina Abdi [address] [place] [address] Social History Tobacco Use Types [...] [facility] [address] [place] [address] Rubén Ashraf MD [address] [place] [address] [place] [address] documented as of this encounter Visit Diagnoses Not on filedocumented in this encounter Care Teams Mine Laborer Relationship Specialty Start Date End Date Caitlyn Bowie MD [address] [place], [place] PCP - General Internal Medicine 09/24/24 documented as of this encounter
--- OUTSIDE RECORDS SUMMARY | 2025-04-28 16:29 | XMS_ITS | Clinical Summary ---
Author Organization [facility] Address [address] [place] [address] Care Team Providers Care Prepared Foods Production Team Member Name Role Phone Caitlyn Bowie MD Primary Care Provider [phone]- [phone] Allergies Active Allergy Reactions Criticality Noted Date [...] Breath High 05/09/2008 Bronchospasm or Wheezing Ipratropium [place] Unknown/Patient and Family Unable to Define Medium [...] 1 capsule by mouth daily. Active B Zupusgs-O-Psqpd Acid (STRESS 500 B-COMPLEX PO) Take 1 [...] Type Department Care Team Description 04/08/2025 Telephone [facility] Neu[facility] Ophthalmology [address] [phone] Yary Whitten DO Medical Complaint 03/14/2025 Scanned Document [facility] Neurology Ophthalmology [address] [place] [phone] Shirley Chaidez PA-C 03/11/2025 Telephone [facility] Neurology Ophthalmology [address] [phone] Yary Whitten DO Medical Complaint from Last [...] (Females,Ages 65 and older) 2008 RSV Vaccine 50 years and older and Patients (1 - 1-dose 75+ series) 2018 Influenza Vaccine 02/07/2025 06/12/2024, , 05/13/2022, Additional history exists COVID-19 Vaccine (2024- season) 2025 09/03/2020, 08/06/2020 Hepatitis B Vaccines Aged Out No long er eligible based on patient's age to complete this topic Insurance MEDICARE PART A & B MEDICARE PART A & B [facility] Care Teams Prepared Foods Production Team Member Relationship Specialty Start Date End Date Caitlyn Bowie MD [address] [place] [address] PCP - General Internal Medicine 03/20/23
--- OUTSIDE RECORDS SUMMARY | 2025-04-28 16:29 | XMS_ITS | Encounter Summary ---
Author Organization [facility] Address [address] [place] [address] Care Team Providers Care Theatrical Trouper Name Role Phone Pcp, No Primary Care Provider Brennan Mario MD Primary Care Provider [phone] Caitlyn Bowie MD Primary Care Provider [phone]- [phone] Encounter Details Date Type Department Care Team (Late st Contact Info) Description 01/04/2022 Scanned Document [facility] Neurology Ophthalmology [address] [address] Yary Whitten DO [address] [place] [address] Social History Tobacco Use Types Packs/Day [...] on filedocumented in this encounter Care Teams Theatrical Trouper Relationship Specialty Start Date End Date Pcp, No PCP - General General Medicine 10/04/21 07/18/22 Brennan Burnett MD [address] [place] [address] PCP - General 07/19/22 03/19/23 Caitlyn Bowie MD [address] [place] [address] PCP - General Internal Medicine 03/20/23 documented as of this encounter
--- OUTSIDE RECORDS SUMMARY | 2025-04-28 16:30 | XMS_ITS | Encounter Summary ---
Author Organization [facility] Address [address] [place] [address] Phone Care Team Providers Care Junior Systems Analyst Name Role Phone Caitlyn Bowie MD Primary Care Provider [phone]- [phone] Encounter Details Date Type Department Care Team (Late Contact Info) Description 12/10/2024 Documentation Only [facility] [address] [place] [address] Marina Abdi [address] [place] [address] Social History Tobacco Use Types [...] [facility] [address] [place] [address] Rubén Ashraf MD [address] [place] [address] [place] [address] documented as of this encounter Visit Diagnoses Not on filedocumented in this encounter Care Teams Junior Systems Analyst Relationship Specialty Start Date End Date Caitlyn Bowie MD [address] [place], [place] PCP - General Internal Medicine 09/24/24 documented as of this encounter
--- OUTSIDE RECORDS SUMMARY | 2025-04-28 16:30 | XMS_ITS | Encounter Summary ---
Author Organization [facility] Address [address] [place] [address] Phone Care Team Providers Care Extractive Metallurgist Name Role Phone Caitlyn Bowie MD Primary Care Provider [phone]- [phone] Encounter Details Date Type Department Care Team (Late Contact Info) Description 12/10/2024 Documentation Only [facility] [address] [place] [address] Marina Abdi [address] [place] [address] Social History Tobacco Use Types [...] [facility] [address] [place] [address] Rubén Ashraf MD [address] [place] [address] Dr[address] [place] [address] documented as of this encounter Visit Diagnoses Not on filedocumented in this encounter Care Teams Extractive Metallurgist Relationship Specialty Start Date End Date Caitlyn Bowie MD [address] [place], [place] PCP - General Internal Medicine 09/24/24 documented as of this encounter
--- OUTSIDE RECORDS SUMMARY | 2025-04-28 16:30 | XMS_ITS | Encounter Summary ---
Author Organization [facility] Address [address] [place] [address] Phone Care Team Providers Care Molded Rubber Goods Cutter Name Role Phone Caitlyn Bowie MD Primary Care Provider [phone]- [phone] Encounter Details Date Type Department Care Team (Late Contact Info) Description 12/12/2024 Documentation Only [facility] [address] [place] [address] Marina Abdi [address] [place] [address] Social History Tobacco Use Types [...] Visit [facility] [address] [place] [address] Rubén Ashraf MD [address] [place] [address] [place] [address] documented as of this encounter Visit Diagnoses Not on filedocumented in this encounter Care Teams Molded Rubber Goods Cutter Relationship Specialty Start Date End Date Caitlyn Bowie MD [address] [place], [place] PCP - General Internal Medicine 09/24/24 documented as of this encounter
--- OUTSIDE RECORDS SUMMARY | 2025-04-28 16:30 | XMS_ITS | Encounter Summary ---
Author Organization [facility] Address [address] [place] [address] Phone Care Team Providers Care Container Finishing Inspector Name Role Phone Caitlyn Bowie MD Primary Care Provider +1- [phone] Encounter Details Date Type Department Care Team (Late Contact Info) Description 12/10/2024 Documentation Only [facility] [address] [place] [address] Marina Abdi [address] [place] [address] Social History Tobacco Use Types [...] Visit [facility] [address] [place] [address] Rubén Ashraf MD [address] [place] [address] [place] [address] documented as of this encounter Visit Diagnoses Not on filedocumented in this encounter Care Teams Container Finishing Inspector Relationship Specialty Start Date End Date Caitlyn Bowie MD [address] [place], [place] PCP - General Internal Medicine 09/24/24 documented as of this encounter
--- OUTSIDE RECORDS SUMMARY | 2025-04-28 16:30 | XMS_ITS | Patient Health Record ---
Author Organization [facility] Address [address] [facility] [address] [place] [address] Care Team Providers Care Casting And Pasting Supervisor Name Role Phone EVELIN RAMSAY Primary Care Provider Yenny Hou Unavailable [phone] Allergies Allergen (clinical drug ingredient) Drug/Non Drug [...] UROBILINOGEN Neg BILIRUBIN Neg BLOOD Neg Urinalysis, Complete-[id number] Reviewed date:05/04/2024 11:35:42 PM Interpretation: Performing Lab:[facility], [address] [place] [address], Phone - [phone], Director - Arely Notes/Report: Specific [place] 1.009 1.005-1.030 pH 6.5 5.0-7.5 Urine-Color Yellow [...] Bacteria None seen None seen/Few Urine Culture, Routine-[id number] Reviewed date:05/04/2024 11:35:22 PM Interpretation: Performing Lab:[facility], [address] [place] [address], Phone - [phone], Director - Arely Notes/Report: Urine Culture, Routine Final report Result 1 Culture shows less than 10,000 colony forming units of bacteria per milliliter of urine. This colony count is not generally considered to be clinically significant. PDF Report Reviewed date:05/04/2024 11:35:04 PM Interpretation: Performing Lab:[facility], [address] [place] [address], Phone - [phone], Director - Arely Notes/Report: Reason For Referral [...] 1 ORAL daily; Durati on: -3 [facility] 06/10/2014 Active ZyrTEC Allergy 10MG 1 [...] 1 ORAL at bedtime; Duration: -3 [facility] 06/10/2014 Active Meclizine HCl 25 MG 1 tablet as needed Orally [facility] 06/10/2014 Active Albuterol Sulfate (2.5 MG/3ML)0.083% Inhalation 4 x a day prn 06/10/2014 Active Valium 5MG 1 tablet as needed O RAL at bedtime, 1/2 tab prn during the day [facility] 06/10/2014 Active Social History Tobacco Use: [...] Status Risk Notes Problem Postmenopausal atrophic vaginitis (80112619) Postmenopausal atrophic vaginitis (N95.2) Active confirmed Problem Age-related osteoporosis (750540012) Age-related osteoporosis without current pathological fracture (M81.0) Active confirmed Problem Urgent desire to urinate (72143877) Urgency of urination (R39.15) Active confirmed Problem 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 Problem Chronic systolic heart failure (954528193) Chronic systolic (congestive) heart failure (I50.22) Active confirmed Problem Chronic obstructive pulmonary disease (68414343) Chronic obstructive pulmonary disease, unspecified (J44.9) Active confirmed Problem Functional urinary incontinence (080383601) Functional 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) Active confirmed Problem Personal history of primary malignant neoplasm of bronchus (059844855) 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) Active confirmed Vital Signs Temperature 97.7 degrees Fahrenheit 07/18/2024 Blood pressure diastolic 62 mm Hg 07/18/2024 Height 63 in 07/18/2024 Blood pressure systolic 102 mm Hg 07/18/2024 Weight 126 lbs 07/18/2024 BMI 22.32 kg/m2 07/18/2024 Encounters Encounter Location Date Provider Diagnosis Total [address] [address] 05/03/2024 Yennydorothy Elizalde Urgency of urination R39.15 and Abscess of vulva N76.[address] [address] 05/10/2024 Yenny Elizalde Abscess of vulva N76 .[address] [address] 05/17/2024 Yenny Elizalde Abscess of vulva N76 .[address] [address] 07/09/2024 Yenny Tonio Urgency of urination R39.15 ; Acute vaginitis N76.0 and Postmenopausal atrophic vaginitis N95.[address] [address] 07/18/2024 Yenny Elizalde Encounter for screening mammogram for malignant neoplasm of breast Z12.31 and Mastodynia N64.[address] [address] 05/10/2024 Yenny Lovettva Total [address] [address] 05/13/2024 Yenny Elizalde [facility] [address] [facility] [address] [place] [address] 06/11/2024 Yenny Elizalde Assessments Encounter Date Diagnosis [...] [facility] AND DISCUSSED THIS [...] Date MEDICARE [address] [place] [id number] SHIRLEY CINDA Self - patient is the insured [employer] [address] [place] [address] [id number] DANIEL WATSONE Self - patient is [...]
--- OUTSIDE RECORDS SUMMARY | 2025-04-28 16:30 | XMS_ITS | Clinical Summary ---
Author Organization [facility] Address [address] [place] [address] Care Team Providers Care Knitter Hand Name Role Phone Brennan Burnett MD Primary Care Provider [phone] Allergies Active Allergy Reactions Criticality Noted Date [...] age to complete this topic Care Teams Knitter Hand Relationship Specialty Start Date End Date Brennan Burnett MD [address] [place] [address] PCP - General Internal Medicine 07/06/20
--- OUTSIDE RECORDS SUMMARY | 2025-04-28 16:30 | XMS_ITS | Encounter Summary ---
Author Organization [facility] Address [address] [place] [address] Phone Care Team Providers Care Warp Tester Name Role Phone Caitlyn Bowie MD Primary Care Provider [phone]- [phone] Encounter Details Date Type Department Care Team (Late Contact Info) Description 03/24/2025 Documentation Only [facility] [address] [place] [address] Marina Abdi [address] [place] [address] Social History Tobacco Use Types [...] Visit [facility] [address] [place] [address] Rubén Ashraf MD [address] [place] [address] [place] [address] documented as of this encounter Visit Diagnoses Not on filedocumented in this encounter Care Teams Warp Tester Relationship Specialty Start Date End Date Caitlyn Bowie MD [address] [place], [place] PCP - General Internal Medicine 09/24/24 documented as of this encounter
--- OUTSIDE RECORDS SUMMARY | 2025-04-28 16:30 | XMS_ITS | Encounter Summary ---
Author Organization [facility] Address [address] [place] [address] Phone Care Team Providers Care Shingles Roofer Name Role Phone Caitlyn Bowie MD Primary Care Provider [phone]- [phone] Encounter Details Date Type Department Care Team (Late Contact Info) Description 12/10/2024 Documentation Only [facility] [address] [place] [address] Marina Abdi [address] [place] [address] Social History Tobacco Use [...] Visit [facility] [address] [place] [address] Rubén Ashraf MD [address] [place] [address] Dr[place] [address] documented as of this encounter Visit Diagnoses Not on filedocumented in this encounter Care Teams Shingles Roofer Relationship Specialty Start Date End Date Caitlyn Bowie MD [address] [place], [place] PCP - General Internal Medicine 09/24/24 documented as of this encounter
--- OUTSIDE RECORDS SUMMARY | 2025-04-28 16:30 | XMS_ITS | Encounter Summary ---
Author Organization [facility] Address [address] [place] [address] Phone Care Team Providers Care Script Developer Name Role Phone Caitlyn Bowie MD Primary Care Provider [phone]- [phone] Encounter Details Date Type Department Care Team (Late Contact Info) Description 12/12/2024 Documentation Only [facility] [address] [place] [address] Marina Abdi [address] [place] [address] Social History Tobacco Use Types [...] [facility] [address] [place] [address] Rubén Ashraf MD [address] [place] [address] [place] [address] documented as of this encounter Visit Diagnoses Not on filedocumented in this encounter Care Teams Script Developer Relationship Specialty Start Date End Date Caitlyn Bowie MD [address] [place], [place] PCP - General Internal Medicine 09/24/24 documented as of this encounter
--- OUTSIDE RECORDS SUMMARY | 2025-04-28 16:30 | XMS_ITS | Clinical Summary ---
Author Organization 175 [facility] Address [address] [place] [address] Phone Care Team Providers Care Shredding Machine Tender Name Role Phone Caitlyn Bowie MD Primary Care Provider [phone] Allergies Active Allergy Reactions Criticality Noted Date [...] 20 mg as needed by her previous tubing assembler which she has taken sporadically. I have asked her to take this daily to see if this improves her symptoms and she has a follow-up appointment with Dr. Shah on September 16 which she will keep. We also had a long conversation regarding the fact that she is seeing 3 different tubing assembler for the same problems. We informed her [...] continues to see Dr. Avalos or her tubing assembler at [facility]. She verbalized understanding of [...] antibody syndrome (CMS/HCC V24) 12/24/2018 Adrenal insufficiency ([facility] V24) 08/23/2018 Allergic rhinitis 08/23/2018 Hyperparathyroidism ([facility] V24) 08/23/2018 MRSA infection 08/23/2018 Overview (05/16/2024): 06/2009, s/p thoracotomy infection Osteoarthritis 08/23/2018 Radiation-induced pulmonary fibrosis ([facility] V2 4) 11/13/2017 Bronchiectasis ([facility] V24, [facility] V28) 2017 Leg edema 08/08/2017 Restrictive lung disease 08/08/2017 Chronic obstructive pulmonar y disease ([facility] V24, [facility] V28) 04/13/2017 Fibromyalgia 04/13/2017 Congestive heart failure ([facility] V24, [facility] V 28) 04/04/2017 Heterozygous factor V Leiden mutation ([facility] V 24) 04/04/2017 Obstructive sleep apnea syndrome 04/04/2017 Overview (05/16/2024): CPAP Pleural effusion 04/04/2017 Pulmonary hypertension ([facility] V24, [facility] V28 ) 04/04/2017 Multiple pulmonary nodules 03/17/2017 [...] Team Description 04/14/2025 10:00 AM EDT Evaluation [address] [phone] Bruno Moreno, PT Gait abnormality (Primary Dx); Cerebral lesion 04/14/2025 Plan of Care Documentation [facility] 175 [facility] [address] [place] [phone] 04/11/2025 Telephone Gastroenterology - [address] [place] [phone] Tim Gomes MD 03/20/2025 11:40 AM EDT Office Visit [facility] 175 [facility] [address] [place] [phone] Ayanna Jaffe MD Optic neuritis (Primary Dx); White matter lesion of central nervous system; Blurry vision 02/24/2025 Telephone Gastroenterology - 299 [facility] 299 [facility] [address] [place] [phone] Tim Gomes MD 02/23/2025 11:40 AM EDT - 02/23/2025 4:22 PM EDT Emergency [facility] Emergency [address] [place] [phone] Celia Snider DO Diverticulitis (Primary Dx) Discharge Disposition: Home or Self Care 02/21/2025 4:30 PM EDT Office Visit [address] [phone] Shirley Chaidez PA Optic neuritis (Primary Dx) [...] PROCEDURE: HISTORICAL TONSILLECTOMY OTHER SURGICAL HISTORY PROCEDURE: ND RMVL LUNG [...] pathology report UPPER GASTROINTESTINAL ENDOSCOPY 05/03/2015 PROCEDURE: ND UPPER GI ENDOSCOPY PERFORMED MITRAL CLIP PROCEDURE Medical History Medical History Date Comments Akathisia 04/15/2013 DX:Akathisia Anxiety 12/07/2016 DX:Anxiety Bronchiectasis (CMS/HCC V24, CMS/HCC V28) 08/08/2017 DX:Bronchiectasis (HCC) Cataract 08/26/2014 DX:Cataract Chronic obstructive pulmonar y disease (CMS/HCC V24, [facility] V28) 04/13/2017 DX:Chronic obstructive pulm onary disease [...] dori pect Heterozygous factor V Leiden mutation ([facility] V24) 04/04/2017 DX:Heterozygous factor V Lei den [...] syndrome 02/18/2013 DX:Postc oncussion syndrome Pulmonary hypertension ([facility] V24, [facility] V28) 04/04/2017 DX:Pulmonary hypertension (H CC) Restrictive lung disease 08/08/2017 DX:Rest rictive lung disease 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 DX:Zinc deficien cy Obstructive sleep apnea syndrome 04/04/2017 DX:Obstructive sleep apnea syndrome; COMMENT: CPAP Radiation-induced pulmonary fibrosis ([facility] V24) 11/13/2017 DX:Radiation-induced pulmona ry fibrosis (HCC) Adrenal insufficiency ([facility] V24) 08/23/2018 DX:Adrenal insufficiency (HCC) Hyperparathyroidism ([facility] V24) 08/23/2018 DX:Hyperparathyroidism (HCC) Osteoporosis 11/17/2016 DX:Osteoporosis [...] Mx LLL resection, Chemo, RT, Cisplatin, Vinorelbine [phone] Antiphospholipid antibody sy ndrome ([facility] V24) 12/24/2018 DX:Antiphospholipid antibody syndrome (HCC) 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 [address] [address] Bruno Moreno, PT [address] [place] [address] 05/19/2025 10:30 AM EST Treatment [address] [address] Bruno Moreno, PT [address] [place] [address] 05/21/2025 10:15 AM EST Treatment [address] [phone] Gene Marshall, [employer] 05/26/2025 10:30 AM EST Treatment [address] [phone] Bruno Moreno, PT [address] [place] [address] 05/28/2025 1:30 PM EST Treatment [address] [phone] Gene Marshall, [employer] 05/29/2025 3:00 PM EST Office Visit [address] [phone] Ayanna Jaffe MD 175 [place] [address] 06/02/2025 10:30 AM EST Treatment [address] [phone] Bruno Moreno, PT [address] [place] [address] 06/04/2025 10:15 AM EST Treatment [address] [phone] Bruno Moreno, PT [address] [place] [address] Health Maintenance Due Date Last Done Comments [...] 4/5 L PT LTG 16 visits from [facility] on 04/14/2025 General Bruno Kaur, PT Note: [...] central nervous system Blurry vision NEUROMYELITIS OPTICA, [id number] Routine 03/20/2025 12:31 PM EDT Optic neuritis [...] [facility] - 03/25/2025 1:05 AM EDT Test(s) 436021-BDL Antibody, Cell-based IFA was developed and its performance characteristics determined by [facility]. It has not been cleared or approved by the Food and Drug Administration. Performed at: [address] [id number] Propeller Layout Worker: Melissa Wetzel MD, Phone: [phone] Ayanna Jaffe MD LAB BLOOD ORDERABLES Fin al Result Performing Organization Address [facility] de Phone Number [facility] * Neuromyelitis optica, [id number] (03/20/2025 12:31 PM EDT) [facility] NMO IgG Autoantibodies <1.5 0.0 - 3.0 U/mL 03/24/2025 3:05 PM EDT [facility] Comment: Negative: 0.0 - 3.0 Positive: >3.0 Blood Venous blood specimen / Unknown Venipuncture / Unknown 03/20/2025 12:31 PM EDT 03/20/2025 12:31 PM EDT [facility] - 03/24/2025 3:05 PM EDT Performed at: [address] [id number] Propeller Layout Worker: Melissa Wetzel MD, Phone: [phone] Ayanna Jaffe MD LAB BLOOD ORDERABLES Fin al Result Performing Organization Address [facility] de Phone Number [facility] * (ABNORMAL) CBC auto differential (03/20/2025 12:31 PM EDT) Only the most recent of2 resultswithin the time period is included. [facility] WBC 11.0(H) 4.8 - 10.8 K/mcL LAB HEMETOLOGY METHOD 03/20/2025 2:23 PM EDT [facility] RBC 3.50(L) 3.80 - 4.80 M/mcL LAB HEMETOLOGY METHOD 03/20/2025 2:23 PM EDT [facility] Hemoglobin 11.5 11.5 - 16.0 g/dL LAB HEMETOLOGY METHOD 03/20/2025 2:23 PM EDT [facility] Hematocrit 36.7 35.0 - 47.0 % LAB HEMETOLOGY METHOD 03/20/2025 2:[facility] MCV 105.2(H) 79.0 - 98.0 FL LAB HEMETOLOGY METHOD 03/20/2025 2:23 PM EDT [facility] MCH 33.0(H) 27.0 - 32.0 pcg LAB HEMETOLOGY METHOD 03/20/2025 2:23 PM [facility] MCHC 31.3(L) 32.0 - 37.0 g/dL LAB HEMETOLOGY METHOD 03/20/2025 2:23 PM [facility] RDW 14.1 11.0 - 15.0 % LAB HEMETOLOGY METHOD 03/20/2025 2:23 PM EDT [facility] Platelets 243 130 - 400 K/mcL LAB HEMETOLOGY METHOD 03/20/2025 2:23 PM [facility] MPV 11.3(H) 7.0 - 11.0 FL LAB HEMETOLOGY METHOD 03/20/2025 2:23 PM [facility] NRBC 0.2 <1.0 % LAB HEMETOLOGY METHOD 03/20/2025 2:23 PM EDT [facility] NRBC Absolute 0.02 <0.10 K/mcL LAB HEMETOLOGY METHOD 03/20/2025 2:23 PM [facility] Neutrophils Relative 75.9 % LAB HEMETOLOGY METHOD 03/20/2025 2:23 PM [facility] Lymphocytes Relative 8.7 % LAB HEMETOLOGY METHOD 03/20/2025 2:23 PM [facility] Monocytes Relative 12.2 % LAB HEMETOLOGY METHOD 03/20/2025 2:23 PM EDT [facility] Eosinophils Relative 0.7 % LAB HEMETOLOGY METHOD 03/20/2025 2:23 PM EDT [facility] Basophils Relative 0.7 % LAB HEMETOLOGY METHOD 03/20/2025 2:23 PM EDT [facility] Immature Granulocytes Relative 1.8 % LAB HEMETOLOGY METHOD 03/20/2025 2:23 PM EDT [facility] Neutrophils Absolute 8.36(H) 1.50 - 7.00 K/mcL LAB HEMETOLOGY METHOD 03/20/2025 2:23 PM EDT [facility] Lymphocytes Absolute 0.96(L) 1.00 - 5.00 K/mcL LAB HEMETOLOGY METHOD 03/20/2025 2:23 PM EDT [facility] Monocytes Absolute 1.34(H) 0.20 - 1.00 K/mcL LAB HEMETOLOGY METHOD 03/20/2025 2:23 PM EDT [facility] Eosinophils Absolute 0.08 0.00 - 0.50 K/mcL LAB HEMETOLOGY METHOD 03/20/2025 2:23 PM EDT [facility] Basophils Absolute 0.08 0.00 - 0.20 K/mcL LAB HEMETOLOGY METHOD 03/20/2025 2:23 PM EDT [facility] Immature Granulocytes Absolute 0.20(H) 0.00 - 0.03 K/mcL LAB HEMETOLOGY METHOD 03/20/2025 2:23 PM EDT [facility] Blood Venous blood specimen / Unknown Venipuncture / Unknown 03/20/2025 12:31 PM EDT 03/20/2025 12:31 PM EDT Ayanna Jaffe MD LAB BLOOD ORDERABLES Fin al Result [facility] [address] [place] [address], [place] [phone] * Sedimentation rate (03/20/2025 12:31 PM EDT) Sed Rate 25 0 - 30 mm/hr LAB HEMETOLOGY METHOD 03/20/2025 2:14 PM EDT [facility] Blood Venous blood specimen / Unknown Venipuncture / Unknown 03/20/2025 12:31 PM EDT 03/20/2025 12:31 PM EDT Ayanna Jaffe MD LAB BLOOD ORDERABLES Fin al Result Performing Organization Address [facility]/State/ZIP Co de Phone Number [facility] [address] [place] [address], [place] [phone] * ECG-Annotated (02/24/2025) Provider Onbase MD ECG ORDERABLES Final Result * CT Head wo Contrast (02/23/2025 2:53 PM EDT) Anatomical Region Laterality Modality Head and Neck Computed Tomogra phy 02/23/2025 2:57 PM EDT Impressions 02/23/2025 3:01 PM EDT Impression: No acute hemorrhage or intracranial mass effect. No significant change. Telerad PA ([id number]) -------- FINAL REPORT -------- Dictated By: Fawn Levin Dictated Date: 02/23/2025 14:57 ET Assigned Physician: Fawn Levin Reviewed and Electronically Signed By: Fawn Levin Signed Date: 02/23/2025 15:01 ET Workstation ID: [id number] Transcribed By: Self Edit Transcribed Date: 02/23/2025 [...] mass effect. No significant change. Telekarla KAPOOR ([id number]) -------- FINAL REPORT -------- Dictated By: Fawn Levin Dictated Date: 02/23/2025 14:57 ET Assigned Physician: Fawn Levin Reviewed and Electronically Signed By: Fawn Levin Signed Date: 02/23/2025 15:01 ET Workstation ID: [id number] Transcribed By: Self Edit Transcribed Date: 02/23/2025 [...] appropriate, to exclude this possibility. Telekarla KAPOOR ([id number]) -------- FINAL REPORT -------- Dictated By: Fawn Levin Dictated Date: 02/23/2025 15:01 ET Assigned Physician: Fawn Levin Reviewed and Electronically Signed By: Fawn Levin Signed Date: 02/23/2025 15:05 ET Workstation ID: [id number] Transcribed By: Self Edit Transcribed Date: 02/23/2025 15:01 ET Narrative 02/23/2025 3:05 PM EDT History: Left lower quadrant abdominal pain. Comparison: 08/23/23 Technique: Helical volumetric imaging of the abdomen and pelvis was performed without intravenous or oral contrast. DLP: 480.07 mGy/cm [employer] VCT Iterative reconstruction technique Findings: Chronic pleural-parenchymal [...] intravenous or oral contrast. DLP: 480.07 mGy/cm 3LMpe[employer] VCT Iterative reconstruction technique Findings: Chronic pleural-parenchymal [...] appropriate, to exclude this possibility. Telekarla KAPOOR ([id number]) -------- FINAL REPORT -------- Dictated By: Fawn Levin Dictated Date: 02/23/2025 15:01 ET Assigned Physician: Fawn Levin Reviewed and Electronically Signed By: Fawn Levin Signed Date: 02/23/2025 15:05 ET Workstation ID: [id number] Transcribed By: Self Edit Transcribed Date: 02/23/2025 [...] ORDERABLES Final R esult Performing Organization Address City/[facility] Co de Phone Number [facility] [address] [place] [address], [place] [phone] * Blood Culture, Peripheral Draw #2 (02/23/2025 2:25 PM EDT) Only the most recent of2 resultswithin the time period is included. Pathologist [facility] Culture, Blood No growth at 5 days 02/28/2025 3:01 PM EDT [facility] Blood Venous blood specimen / Unknown Venipuncture / Unknown 02/23/2025 2:25 PM EDT 02/23/2025 2:35 PM EDT Afs[facility]h [facility] LAB MICROBIOLOGY - GENERAL O RDERABLES Final Result Performing Organization Address City/[facility]/ZIP Co de Phone Number [facility] [address] [place] [address], [place] [phone] * XR Chest 1 View (02/23/2025 2:15 PM EDT) Anatomical Region Laterality Modality Body Radiographic Monserrat ging 02/23/2025 2:33 PM EDT Impressions 02/23/2025 2:37 PM EDT Impression: Stable radiographic appearance of the chest, including volume loss and chronic pleural-parenchymal opacity in the left hemithorax consistent with previously treated lung carcinoma. No acute process identified. Telerad PA ([id number]) -------- FINAL REPORT -------- Dictated By: Fawn Levin Dictated Date: 02/23/2025 14:33 ET Assigned Physician: Fawn Levin Reviewed and Electronically Signed By: Fawn Levin Signed Date: 02/23/2025 14:37 ET Workstation ID: [id number] Transcribed By: Self Edit Transcribed Date: 02/23/2025 14:33 ET Narrative 02/23/2025 2:37 PM EDT History: Dyspnea. Personal history of lung carcinoma. Comparison: 07/30/23, thoracic CT 09/09/24 [place], [place] Findings: Portable AP upright chest at [...] lung carcinoma. Comparison: 07/30/23, thoracic CT 09/09/24 [place], [place] Findings: Portable AP upright chest at [...] carcinoma. No acute process identified. Telerad PA ([id number]) -------- FINAL REPORT -------- Dictated By: Fawn Levin Dictated Date: 02/23/2025 14:33 ET Assigned Physician: Fawn Levin Reviewed and Electronically Signed By: Fawn Levin Signed Date: 02/23/2025 14:37 ET Workstation ID: [id number] Transcribed By: Self Edit Transcribed Date: 02/23/2025 14:33 ET Afsaneh KAPOOR IMG XR PROCEDURES Final Resu lt * Urinalysis with reflex microscopic and culture (02/23/2025 2:04 PM EDT) Pathologist [facility] Specific [place] Urine 1.006 1.003 - 1.030 LAB URINALYSIS - AUTOMATED METHOD 02/23/2025 2:17 PM EDT [facility] pH, Urine 7.5 5.0 - 8.0 pH LAB URINALYSIS - AUTOMATED METHOD 02/23/2025 2:17 PM [facility] Leukocytes, Urine Negative Negative LAB URINALYSIS - AUTOMATED METHOD 02/23/2025 2:17 PM [facility] Nitrite, Urine Negative Negative LAB URINALYSIS - AUTOMATED METHOD 02/23/2025 2:17 PM [facility] Protein, Urine Negative <=Trace mg/dL LAB URINALYSIS - AUTOMATED METHOD 02/23/2025 2:17 PM [facility] Glucose, Urine Negative Negative mg/dL LAB URINALYSIS - AUTOMATED METHOD 02/23/2025 2:17 PM [facility] Ketones, Urine Negative Negative mg/dL LAB URINALYSIS - AUTOMATED METHOD 02/23/2025 2:17 PM [facility] Urobilinogen, Urine 0.2 0.2 - 1.0 mg/dL LAB URINALYSIS - AUTOMATED METHOD 02/23/2025 2:17 PM [facility] Bilirubin, Urine Negative Negative LAB URINALYSIS - AUTOMATED METHOD 02/23/2025 2:17 PM [facility] Blood, Urine Negative Negative LAB URINALYSIS - AUTOMATED METHOD 02/23/2025 2:17 PM EDT [facility] Urine Urine specimen obtained by clean catch procedure / Unknown Non-blood Collection / Unknown 02/23/2025 2:04 PM EDT 02/23/2025 2:05 PM EDT A[facility] LAB URINE ORDERABLES Final R esult Performing Organization Address City/[facility]/ZIP Co de Phone Number [facility] [address] [place] [address], [place] [phone] * Martinez urine culture tube (02/23/2025 2:04 PM EDT) [facility] Extra Tube Hold for add-ons. 02/23/2025 4:01 PM EDT [facility] Comment:Auto resulted. Urine Urine specimen obtained by clean catch procedure / Unknown Non-blood Collection / Unknown 02/23/2025 2:04 PM EDT 02/23/2025 2:05 PM EDT Afsaneh KAPOOR LAB URINE ORDERABLES Final R esult Performing Organization Address City/[facility] Co de Phone Number [facility] [address] [place] [address], [place] [phone] * Troponin I high sensitivity (02/23/2025 1:15 PM EDT) [facility] High Sensitivity Troponin I 25 <=54 ng/L LAB CHEMISTRY METHOD 02/23/2025 2:15 PM EDT [facility] Blood Venous blood specimen / Unknown Venipuncture / Unknown 02/23/2025 1:15 PM EDT 02/23/2025 1:39 PM EDT Narrative [facility] - 02/23/2025 2:15 PM EDT High levels of biotin in samples may falsely decrease hsTroponin values. Use caution when interpreting hsTroponin results in patients taking biotin who exhibit renal impairment (eGFR <60) or in patients taking more than 20 mg/day of biotin. us Afsaneh KAPOOR LAB BLOOD ORDERABLES Final R esult Performing Organization Address City/[facility]/ZIP Co de Phone Number [facility] [address] [place] [address], [place] [phone] * (ABNORMAL) Prothrombin time with INR (02/23/2025 1:15 PM EDT) [facility] Protime 14.9(H) 10.6 - 13.9 sec LAB COAGULATION METHOD 02/23/2025 1:52 PM EDT [facility] INR 1.2 LAB COAGULATION METHOD 02/23/2025 1:52 PM EDT [facility] Blood Venous blood specimen / Unknown Venipuncture / Unknown 02/23/2025 1:15 PM EDT 02/23/2025 1:40 PM EDT us Afsaneh KAPOOR LAB BLOOD ORDERABLES Final R esult Performing Organization Address City/[facility]/ZIP Co de Phone Number [facility] [address] [place] [address], [place] [phone] * Type and screen (02/23/2025 1:15 PM EDT) [facility] ABO Group A 02/23/2025 2:47 PM EDT [facility] Rh Type Positive 02/23/2025 2:47 PM EDT [facility] Antibody Screen Negative 02/23/2025 2:47 PM EDT [facility] Blood Venous blood specimen / Unknown Venipuncture / Unknown 02/23/2025 1:15 PM EDT 02/23/2025 1:40 PM EDT us Afsaneh KAPOOR LAB BLOOD BANK TEST ORDERABL ES Final Result [facility] [address] [place] [address], * (ABNORMAL) Comprehensive Metabolic Panel (CMP) (02/23/2025 1:15 PM EDT) Sodium 136 133 - 145 mmol/L LAB CHEMISTRY METHOD 02/23/2025 2:13 PM EDT [facility] Potassium 3.5 3.5 - 5.5 mmol/L LAB CHEMISTRY METHOD 02/23/2025 2:13 PM EDT [facility] Chloride 97 96 - 110 mmol/L LAB CHEMISTRY METHOD 02/23/2025 2:13 PM [facility] CO2 33(H) 21 - 32 mmol/L LAB CHEMISTRY METHOD 02/23/2025 2:13 PM EDT [facility] Anion Gap 6 3 - 11 LAB CHEMISTRY METHOD 02/23/2025 2:[facility] Glucose 100 70 - 100 mg/dL LAB CHEMISTRY METHOD 02/23/2025 2:13 PM [facility] BUN 23 5 - 25 mg/dL LAB CHEMISTRY METHOD 02/23/2025 2:13 PM [facility] Creatinine 0.83 0.50 - 1.10 mg/dL LAB CHEMISTRY METHOD 02/23/2025 2:13 PM EDT [facility] eGFR 71 >=60 mL/min/1. 73m2 LAB CHEMISTRY METHOD 02/23/2025 2:13 PM [facility] Comment:Calculation based on the Chronic Kidney Disease Epidemiology Collaboration (CKD-EPI) equation refit without adjustment for race. BUN/Creatinine Ratio 27.7 LAB CHEMISTRY METHOD 02/23/2025 2:13 PM T [facility] Calcium 10.0 8.5 - 10.5 mg/dL LAB CHEMISTRY METHOD 02/23/2025 2:13 PM EDT [facility] AST (SGOT) 29 10 - 42 unit/L LAB CHEMISTRY METHOD 02/23/2025 2:13 PM EDT [facility] ALT (SGPT) 24 10 - 60 unit/L LAB CHEMISTRY METHOD 02/23/2025 2:13 PM EDT [facility] Alkaline Phosphatase 72 42 - 121 unit/L LAB CHEMISTRY METHOD 02/23/2025 2:13 PM EDT [facility] Total Protein 6.9 6.0 - 8.0 g/dL LAB CHEMISTRY METHOD 02/23/2025 2:13 PM EDT [facility] Albumin 3.5 3.2 - 5.0 [...] R esult [facility] [address] [place] [address], * 12-Lead ECG (02/23/2025 1:05 PM EDT) Ventricular Rate ECG 79 BPM GEMUSE Atrial Rate 79 BPM GEMUSE P-R Interval 164 ms GEMUSE QRS Duration 138 ms GEMUSE Q-T Interval 422 ms GEMUSE QTc 483 ms GEMUSE P Wave [place] 68 degrees GEMUSE R [place] -59 degrees GEMUSE T [place] 62 degrees GEMUSE ECG Interpretation Normal sinus [...] Documents on File Type Date Recorded 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
--- OUTSIDE RECORDS SUMMARY | 2025-04-28 16:30 | XMS_ITS | Clinical Summary ---
Author Organization [facility], Address [address] [place] [address] [place] [address] Phone Care Team Providers Care Director Of Automation Name Role Phone Caitlyn Bowie MD Primary Care Provider [phone]- [phone] Allergies Active Allergy Reactions Criticality Noted Date [...] [facility] [address] [place] [address] Marina Abdi 03/17/2025 Documentation Only [facility] [address] [place] [address] Marina Abdi 03/17/2025 Office Communication [facility] [address] [place] [address] Marina Abdi 03/17/2025 Orders Only [facility], [address] [facility] [place] [address] Marina Abdi Smells of urine [...] Visit [facility], [address] [place] [address] Rubén Ashraf MD [address] [facility] [place] [address] Health Maintenance Due Date Last Done Comments Influenza Vaccine (#1) 2025 0, 04/22/2019, 04/18/2016 Pneumococcal Vaccine: 50+ Years Completed 08/31/2021, 03/25/2016, 09/17/2015, Additional history exists Hepatitis B Vaccine Aged Out No longe r eligible based on patient's age to complete this topic Insurance Medicare [facility] Care Teams Director Of Automation Relationship Specialty Start Date End Date Caitlyn Bowie MD [address] [place], [place] PCP - General Internal Medicine 09/24/24
--- OUTSIDE RECORDS SUMMARY | 2025-04-28 16:30 | XMS_ITS | Encounter Summary ---
Author Organization [facility] Address [address] [place] [address] Care Team Providers Care Boilermaker Apprentice Name Role Phone Pcp, No Primary Care Provider Brennan Mario MD Primary Care Provider [phone] Caitlyn Bowie MD Primary Care Provider [phone]- [phone] Encounter Details Date Type Department Care Team (Late st Contact Info) Description 01/04/2022 Scanned Document [facility] Neurology Ophthalmology [address] [id number] Yary Whitten DO [address] [place] [address] Social History Tobacco Use Types Packs/Day [...] on filedocumented in this encounter Care Teams Boilermaker Apprentice Relationship Specialty Start Date End Date Pcp, No PCP - General General Medicine 10/04/21 07/18/22 Brennan Burnett MD [address] [place] [address] PCP - General 07/19/22 03/19/23 Caitlyn Bowie MD [address] [place] [address] PCP - General Internal Medicine 03/20/23 documented as of this encounter
--- OUTSIDE RECORDS SUMMARY | 2025-04-28 16:30 | XMS_ITS | Encounter Summary ---
Author Organization [facility] Address [address] [place] [address] Phone Care Team Providers Care Trustee Of Estate Name Role Phone Caitlyn Bowie MD Primary Care Provider [phone]- [phone] Encounter Details Date Type Department Care Team (Late st Contact Info) Description 10/01/2024 Documentation Only [facility] [address] [place] [address] Ron Taylor [place] [address] [place] [address] Social History Tobacco Use Types [...] [facility] [address] [place] [address] Rubén Ashraf MD [address] [place] [address] [place] [address] documented as of this encounter Visit Diagnoses Not on filedocumented in this encounter Care Teams Trustee Of Estate Relationship Specialty Start Date End Date Caitlyn Bowie MD [address] [place], [place] PCP - General Internal Medicine 09/24/24 documented as of this encounter
--- OUTSIDE RECORDS SUMMARY | 2025-04-28 16:30 | XMS_ITS | Encounter Summary ---
Author Organization [facility] Address [address] [place] [address] Phone Care Team Providers Care Preconstruction Manager Name Role Phone Caitlyn Bowie MD Primary Care Provider [phone]- [phone] Encounter Details Date Type Department Care Team (Late Contact Info) Description 12/10/2024 Documentation Only [facility] [address] [place] [address] Marina Abdi [address] [place] [address] Social History Tobacco Use Types [...] [facility] [address] [place] [address] Rubén Ashraf MD [address] [place] [address] [place] [address] documented as of this encounter Visit Diagnoses Not on filedocumented in this encounter Care Teams Preconstruction Manager Relationship Specialty Start Date End Date Caitlyn Bowie MD [address] [place], [place] PCP - General Internal Medicine 09/24/24 documented as of this encounter
--- OUTSIDE RECORDS SUMMARY | 2025-04-28 16:30 | XMS_ITS | Clinical Summary ---
Author Organization [facility] Address [address] [place] [address] Care Team Providers Care Senior Linux Systems Administrator Name Role Phone Caitlyn Bowie Primary Care Provider [phone] Allergies Active Allergy Reactions Criticality Noted Date [...] Throat tightness Throat tightness Throat tightness Ipratropium Banks Unknown Medium 12/18/2021 Isosorbide Mononitrate 11/23/2020 Other [...] & B [facility] Care Teams Senior Linux Systems Administrator Relationship Specialty Start Date End Date Caitlyn Bowie [address] [place] [address] PCP - General Internal Medicine 07/18/22
--- OUTSIDE RECORDS SUMMARY | 2025-04-28 16:30 | XMS_ITS | Encounter Summary ---
Author Organization [facility] Address [address] [place] [address] Care Team Providers Care Account Director Name Role Phone Caitlyn Bowie MD Primary Care Provider [phone]- [phone] Encounter Details Date Type Department Care Team (Late st Contact Info) Description 03/14/2025 Scanned Document [facility] Neurology Ophthalmology [address] [place] [address] Shirley Chaidez PA-C [address] [address] Social History Tobacco Use Types Packs/Day Years [...] filedocumented in this encounter Care Teams Account Director Relationship Specialty Start Date End Date Caitlyn Bowie MD [address] [place] [address] PCP - General Internal Medicine 03/20/23 documented as of this encounter
--- OUTSIDE RECORDS SUMMARY | 2025-04-28 16:30 | XMS_ITS | Patient Health Record ---
Author Organization [facility] Address [address] [place] [address] Care Team Providers Care Networking Engineer Name Role Phone Shruti Bowieberly Primary Care Provider Cristian Fountain Unavailable [phone] Allergies Allergen (clinical drug ingredient) Drug/Non Drug [...] Status W/U Status Risk Notes Problem Diverticulitis (06794108) Diverticulitis (K57.92) Active confirmed Problem Irritable bowel syndrome characterized by constipation (609436189) Irritable bowel syndrome with constipation (K58.9) Active confirmed Problem Gastroesophageal reflux disease (036045344) GERD (gastroesophageal reflux disease) (K21.9) Active confirmed Plan Of Treatment No Information Insurance Providers Payer Name Payer Address Payer Phone Subscriber Number Group Number Insured Name Patient Relationship to Insured Coverage Start Date Coverage End Date MEDICARE OF [place] [address] [place] [address] [id number] DANIEL WATSONE Self - patient is the insured [employer] ATT[employer] CLAIMS [address] [place] [address] [id number] DANIEL WATSONE Self - patient is the [...] a nd Antiphospholipid antibody--has had DVT's and PE's---[facility] at [place] and Dr. Hogan at [facility] GERD-has had EGD's with Dr. Gomes Pneumomias Hypothyroidism Surgical History Surgery Date(Month/Year) Tonsils and adenoids [facility]OLA Lung cancer-Left lower lobectomy at [facility], XRT, Chemo 2008
--- OUTSIDE RECORDS SUMMARY | 2025-04-28 16:30 | XMS_ITS | Encounter Summary ---
Author Organization [facility] Address [address] [place] [address] Phone Care Team Providers Care Rotoprinter Name Role Phone Caitlyn Bowie MD Primary Care Provider [phone]- [phone] Encounter Details Date Type Department Care Team (Late Contact Info) Description 12/10/2024 Documentation Only [facility] [address] [address] Marina Abdi [address] [place] [address] Social History Tobacco Use Types [...] Visit [facility] [address] [place] [address] Rubén Ashraf MD [address] [place] [address] [place] [address] documented as of this encounter Visit Diagnoses Not on filedocumented in this encounter Care Teams Rotoprinter Relationship Specialty Start Date End Date Caitlyn Bowie MD [address] [place], [place] PCP - General Internal Medicine 09/24/24 documented as of this encounter
--- OUTSIDE RECORDS SUMMARY | 2025-04-28 16:31 | XMS_ITS | Encounter Summary ---
Author Organization [facility] Address [address] [place] [address] Care Team Providers Care Business Information Consultant Name Role Phone Caitlyn Bowie MD Primary Care Provider [phone]- [phone] Encounter Details Date Type Department Care Team (Late st Contact Info) Description 03/20/2023 Scanned Document [facility] Radiology [address] [place] [address] Caitlyn Bowie MD [address] [place] [address] Social History Tobacco Use Types Packs/Day Years [...] filedocumented in this encounter Care Teams Business Information Consultant Relationship Specialty Start Date End Date Caitlyn Bowie MD [address] [place] [address] PCP - General Internal Medicine 03/20/23 documented as of this encounter
--- OUTSIDE RECORDS SUMMARY | 2025-04-28 16:31 | XMS_ITS | Encounter Summary ---
Author Organization [facility] Address [address] [place] [address] Phone Care Team Providers Care Nut Cracker Name Role Phone Caitlyn Bowie MD Primary Care Provider [phone]- [phone] Encounter Details Date Type Department Care Team (Late st Contact Info) Description 10/10/2024 Documentation Only [facility] [address] [place] [address] Ron Taylor [place] [address] [place] [address] Social History Tobacco Use Types [...] Visit [facility] [address] [place] [address] Rubén Ashraf MD [address] [place] [address] [place] [address] documented as of this encounter Visit Diagnoses Not on filedocumented in this encounter Care Teams Nut Cracker Relationship Specialty Start Date End Date Caitlyn Bowie MD [address] [place], [place] PCP - General Internal Medicine 09/24/24 documented as of this encounter
[2025-04-28 16:54] LABS: Troponin-I High Sensitivity 14.8 ng/L (<3.5-17.0)
== END 2025-04-28 19:05 | disposition home or self-care (01) ==
PROVIDERS: Physician Assistant; Emergency Provider Emergency Medicine; PCP Internal Medicine
DX: R07.89 Other chest pain (principal); J44.9 Chronic obstructive pulmonary disease, unspecified; I50.32 Chronic diastolic (congestive) heart failure; G47.30 Sleep apnea, unspecified; Z99.81 Dependence on supplemental oxygen; Z79.01 Long term (current) use of anticoagulants; Z87.09 Personal history of other diseases of the respiratory system; Z79.899 Other long term (current) drug therapy; Z86.718 Personal history of other venous thrombosis and embolism
CPT/HCPCS: 36415; 71046; 80048; 80076; 83735; 83880; 84484; 85025; 85610; 87637; 93005; 99283; 99285

== ENCOUNTER → 2025-04-28 12:05 | Outpatient (BNV) | payer MEDICARE, SELFPAY | PROVIDERS: Emergency Provider Emergency Medicine; PCP Internal Medicine; Visit Provider Internal Medicine Cardiovascular Disease | DX: I45.2 Bifascicular block (principal) | CPT/HCPCS: 93010 ==

== ENCOUNTER → 2025-04-28 12:30 | Outpatient (BNV) | payer MEDICARE, SELFPAY | PROVIDERS: Emergency Provider Emergency Medicine; PCP Internal Medicine; Visit Provider Radiology Diagnostic Radiology | DX: J98.11 Atelectasis (principal); R06.02 Shortness of breath | CPT/HCPCS: 71046 ==

== ENCOUNTER 2025-05-06 13:33 | Outpatient (AMB) | payer MEDICARE, SELFPAY ==
[2025-05-06 13:35] VITALS: BP 124/50; PULSE 73; BMI 23.3
--- NOTE | 2025-05-06 13:35 | A.OFFVIS_ITS ---
Vital Signs 05/06/25 13:35 Height 5 ft 2 in Weight 127 lb 6.835 oz BMI 23.3 BP 124/50 L Blood Pressure Location Lt brachial Position Sitting Pulse 73 Pulse Source Pulse Oximeter Intake Visit Reasons: RKT-NK-Lbvuoh up(KM) Public Speaking Teacher Required: No Accompanied by: Self / Same As Patient Allergies morphine Allergy (Severe, Verified 05/06/25 13:45) Itching avocado (AVOCADO) Allergy (Mild, Verified 05/06/25 13:45) ITCHY THROAT, RASH azithromycin (AZITHROMYCIN) Allergy (Mild, Verified 05/06/25 13:45) ITCHY THROAT, RASH barium iodide (BARIUM IODIDE) Allergy (Mild, Verified 05/06/25 13:45) ITCHY THROAT, RASH barium sulfate Allergy (Mild, Verified 05/06/25 13:45) Itch bee pollen (BEE STINGS) Allergy (Mild, Verified 05/06/25 13:45) ITCHY THROAT, RASH ciprofloxacin (From CIPRO) Allergy (Mild, Verified 05/06/25 13:45) ITCHY THROAT, RASH clarithromycin (From BIAXIN) Allergy (Mild, Verified 05/06/25 13:45) ITCHY THROAT, RASH diatrizoate meglumine (From GASTROGRAFIN) Allergy (Mild, Verified 05/06/25 13:45) ITCHY THROAT, RASH diatrizoate sodium (From GASTROGRAFIN) Allergy (Mild, Verified 05/06/25 13:45) ITCHY THROAT, RASH diclofenac (From VOLTAREN) Allergy (Mild, Verified 05/06/25 13:45) ITCHY THROAT, RASH erythromycin base (ERYTHROMYCIN BASE) Allergy (Mild, Verified 05/06/25 13:45) ITCHY THROAT, RASH gentamicin (GENTAMICIN) Allergy (Mild, Verified 05/06/25 13:45) ITCHY THROAT, RASH Iodinated Contrast Media (IVP DYE) Allergy (Mild, Verified 05/06/25 13:45) ITCHY THROAT, RASH levofloxacin (From LEVAQUIN) Allergy (Mild, Verified 05/06/25 13:45) ITCHY THROAT, RASH metronidazole (From FLAGYL) Allergy (Mild, Verified 05/06/25 13:45) ITCHY THROAT, RASH moxifloxacin (From AVELOX) Allergy (Mild, Verified 05/06/25 13:45) ITCHY THROAT, RASH Penicillins (PENICILLINS) Allergy (Mild, Verified 05/06/25 13:45) ITCHY THROAT, RASH shrimp (SHRIMP) Allergy (Mild, Verified 05/06/25 13:45) ITCHY THROAT, RASH Sulfa (Sulfonamide Antibiotics) (SULFA (SULFONAMIDE ANTIBIOTICS)) Allergy (Mild, Verified 05/06/25 13:45) ITCHY THROAT, RASH vancomycin (VANCOMYCIN) Allergy (Mild, Verified 05/06/25 13:45) ITCHY THROAT, RASH clindamycin Adverse Reaction (Intermediate, Verified 05/06/25 13:45) Unknown Medication List - Last Reconciled 05/06/25 by Frederick Banuelos NP Advair HFA 230-21 mcg/actuation (fluticasone propion-salmeterol) 2 puffs inhalation BID 90 days NS albuterol sulfate 90 mcg/actuation 2 inhalations inhalation Q6H PRN 90 days ascorbic acid (vitamin C) 250 mg PO DAILY calcium carbonate (Antacid Ext Str (calcium carb)) 2.5 tabs PO Q4H PRN cetirizine (Zyrtec) 10 mg PO DAILY CPAP (CPAP Machine/Device) As directed cyanocobalamin (vitamin B-12) (Vitamin B-12) 50 mcg PO DAILY diazepam 2.5 mg PO BID PRN docusate sodium 100 mg PO BID epinephrine 0.3 mg IM USEASDIRECTD PRN ferrous gluconate 324 mg PO DAILY fluticasone propionate 50 mcg/actuation 2 sprays intranasal DAILY 90 days folic acid 1 mg PO DAILY furosemide 80 mg (2 x 40 mg) PO BID levocetirizine 5 mg PO DAILY 90 days levothyroxine (Synthroid) 25 mcg PO MOTUWETHFR@0600 levothyroxine (Synthroid) 50 mcg PO SUSA@0600 meclizine 25 mg PO Q8H PRN 10 days metoprolol succinate ER (Toprol XL) 50 mg PO BID montelukast 10 mg PO DAILY nebulizers As directed Oxygen Home Use As directed potassium chloride 20 mEq PO DAILY 90 days prednisone 2.5 mg PO Q OTHER DAY riboflavin (vitamin B2) 25 mg PO DAILY rosuvastatin 10 mg PO MOWEFR@2100 simethicone (Gas Relief (simethicone)) 80 mg PO QIDWMHS PRN trazodone 100 mg (2 x 50 mg) PO BEDTIME warfarin (Jantoven) 1mg tablet, take 1 - 3 tabs daily depending on clinic instructions and INR checks zinc 50 mg PO DAILY HPI Comments Details: This is an 80-year-old female patient coming in for a hospital discharge follow- up visit. Patient with a history of lung cancer, pulmonary hypertension, and COPD on continuous 2 L O2 supplement, coronary artery disease, diastolic heart failure, antiphospholipid syndrome with prior DVT and PEs on warfarin, sleep apnea, chronic chest pains, and mitral regurgitation status post mitral clip. Patient was recently in the hospital acute exacerbation of diastolic heart failure for which patient was diuresed. Patient was initially started on spironolactone but started getting diarrhea and therefore was discontinued. Today, patient is reporting chronic body aches, shortness of breath with no reports of palpitations, dizziness, orthopnea, PND, presyncope, or syncope. Her biomarkers were negative and EKGs stable, however for her ongoing chest discomfort, patient has continued to decline ischemic workup. Patient is reporting intermittent leg swelling but nothing since hospital discharge. Patient is reporting compliance with all her medications. [facility] Medical History Chest pain Chest pain Ankle pain Chronic hypercapnic respiratory failure KANDY treated with BiPAP COPD (chronic obstructive pulmonary disease) Open wound Warfarin anticoagulation Complex sleep apnea syndrome Leg pain Anemia Tachycardia DVT (deep venous thrombosis) Compression fracture of body of thoracic vertebra ASD (atrial septal defect) Pleuritic chest pain History of COVID-19 Chronic anticoagulation Hypothyroidism GERD (gastroesophageal reflux disease) Hyperlipidemia Hypertension Factor 5 Leiden mutation, heterozygous History of non-ST elevation myocardial infarction (NSTEMI) Hypoxia Anxiety PTSD (post-traumatic stress disorder) Hemoptysis Dyspnea Tracheobronchitis CLARA positive Diverticulitis Allergic bronchitis (HFpEF) heart failure with preserved ejection fraction Subarachnoid bleed Insomnia Anti-phospholipid antibody syndrome Hypogammaglobulinemia Chronic respiratory failure Arterial insufficiency of lower extremity Complex regional pain syndrome i of right lower limb Post herpetic neuralgia Pulmonary hypertension Pericardial effusion Pulmonary emboli Pleural effusion Radiation fibrosis of lung Pneumonitis Pulmonary nodules Lung cancer Surgical History History of colonoscopy History of lung surgery History of tonsillectomy History of hysterectomy S/P mitral valve clip implantation History of cardiac cath Family History Sister No problems noted. Mother Cardiovascular disease Daughter Tachycardia Other KANDY (obstructive sleep apnea) Social History Household Members: None Housing: House Do you presently have visiting nurse or other home services: No Alcohol intake: never Comment: stand by assist with ambulation Patient Tobacco Use Status: Never used Tobacco Second Hand Smoke Exposure: No Advance Directives Date on File: 06/15/22 service: No Current occupational status: retired Review of Systems Const Denies daytime sleepiness, Denies difficulty sleeping, Denies snoring, Denies stops breathing during sleep and Denies weakness Card Reports chest pain, Denies rapid heart rate, Denies irregular heart rhythm, Denies claudication, Denies leg edema, Denies lightheadedness, Reports palpitations, Reports dyspnea, Denies dyspnea on exertion, Denies orthopnea, Denies paroxysmal nocturnal dyspnea and Denies slow heart rate Resp Denies cough, Reports dyspnea, Denies dyspnea on exertion and Denies snoring GI Reports no additional complaints, Denies hematochezia, Denies change in stool character and Denies dyspepsia Musc Denies abnormal gait, Denies muscle weakness and Denies numbness Neuro Denies abnormal gait, Denies numbness and Denies weakness Endo Reports palpitations Physical Exam Vital Signs: Last Vital Signs Pulse 73 05/06/25 13:35 BP 124/50 L 05/06/25 13:35 BMI result Body Mass Index 23.3 Const General: cooperative, healthy appearing, comfortable and no acute distress Orientation/consciousness: patient oriented x3 HEENT Head: Yes normal to inspection Neck Neck: Yes normal visual inspection, Yes trachea midline and Yes supple Chest Chest palpation & inspection: normal inspection of the chest Resp Other: On continuous O2 supplement. Effort & Inspection: normal respiratory effort Auscultation: clear to auscultation bilaterally, no crackles, no rales, no rhonchi and no wheezes Cardio Jugular venous distension: no JVD Palpation: normal PMI Rate: regular rate Rhythm: regular rhythm Heart sounds: S1 normal heart sound present, S2 normal heart sound present, no click, no gallops, no murmurs and no rubs Peripheral pulses: Peripheral pulses 2+ throughout GI Inspection: Yes normal to inspection Palpation (GI): Soft to palpation Auscultation: normal bowel sounds Skin General skin exam: no rashes or lesions noted Neuro General: patient oriented x3 Extrem General: Yes normal to inspection, No calf tenderness and Yes edema (Trace edema to left lower extremity) Psych Appearance: grossly normal Mental Status: mental status grossly normal Speech and movement: Normal speech and movement present Assessment & Plan Assessment & Plan (1) (HFpEF) heart failure with preserved ejection fraction: Code(s): I50.30 - Unspecified diastolic (congestive) heart failure Category: Medical Qualifiers: Heart failure chronicity: chronic Qualified Code(s): I50.32 - Chronic diastolic (congestive) heart failure Plan: 04/23/2025-echo study showed a normal LV systolic function with the ejection fraction between 60-65%, moderately dilated left atrium and right atrium, and a trivial pericardial effusion. Patient was recently in the hospital for acute exacerbation of heart failure for which patient was diuresed. Patient did not tolerate spironolactone and is continuing to be on only Lasix therapy. Continue the same. With a history of hypokalemia, patient to continue with potassium supplement. Clinically stable. We will add Jardiance to her regimen. Benefits of this was discussed in detail with the patient. Advised on continuous oxygen use, low-salt diet, compression socks as needed, and daily weight monitoring. (2) Pulmonary hypertension: Comment: severe based on RHC, moderate based on recent echo Code(s): I27.20 - Pulmonary hypertension, unspecified Category: Medical Plan: Continue continuous O2 supplementation. Recent echo shows no evidence of pulmonary hypertension. Patient also follows with pulmonology at [facility]. (3) CAD (coronary artery disease): Code(s): I25.10 - Atherosclerotic heart disease of [place]oux coronary artery without angina pectoris Category: Medical Plan: Patient has had cardiac catheterization twice in the past showing moderate LAD disease, last being back in October of 2022. Patient continues to report of ongoing symptoms of chest discomfort. Her symptoms are atypical in nature as patient reports continue was body aches along with the chest pain which could be musculoskeletal in nature. We have recommended further evaluation with a ischemic workup but patient is refusing this. Continue metoprolol and rosuvastatin therapy. (4) S/P mitral valve clip implantation: Comment: (mitral valve repair - mitral valve clip - Dr. Camarillo, [facility] - 2/1/23) Code(s): Z98.890 - Other specified postprocedural states; Z95.818 - Presence of other cardiac implants and grafts Category: Surgical Plan: History of mitral regurgitation. Mitral clip done by Dr. Camarillo on 08/10/22. As above. (5) Left leg swelling: Code(s): M79.89 - Other specified soft tissue disorders Plan: On exam today, patient continues to have trace edema to her left lower leg, nonpitting. Patient has upcoming ultrasound of her left lower leg for our arterial disease. (6) Hospital discharge follow-up: Code(s): Z09 - Encounter for follow-up examination after completed treatment for conditions other than malignant neoplasm Plan: As above. Advised heart healthy diet, regular exercise as tolerated, med compliance, and management of vascular risk factors. Follow-up with Dr. Cadet. In the interim, patient will call the office with any concerns or change in symptoms. This note was generated using voice recognition software. While every effort has been made to ensure accuracy and proper import specialist, there may be occasional errors that could affect the content or meaning of the described symptoms. Medications: New empagliflozin (Jardiance) 10 mg PO DAILY 90 tabs 1RF Coding Level of Care Code Est Pt Level 4 (85712) Complex EM visit Add On G2211 Diagnoses Chronic heart failure with preserved ejection fraction I50.32 Heart failure chronicity: chronic Pulmonary hypertension I27.20 CAD (coronary artery disease) I25.10 S/P mitral valve clip implantation Z98.890; Z95.818 Left leg swelling M79.89 Hospital discharge follow-up Z09 Time Spent (min) 35 Comment Time spent in reviewing the chart, test results, assessment, counseling and documentation.
--- OUTSIDE RECORDS SUMMARY | 2025-05-06 17:33 | XMS_ITS | Encounter Summary ---
Author Organization [facility] Address [address] [place] [address] Phone Care Team Providers Care C Engineer Name Role Phone Caitlyn Bowie MD Primary Care Provider [phone]- [phone] Encounter Details Date Type Department Care Team (Late Contact Info) Description 03/24/2025 Documentation Only [facility] [address] [place] [address] Marina Abdi [address] [place] [address] Social History Tobacco Use Types [...] [facility] [address] [place] [address] Rubén Ashraf MD [address] [place] [address] [place] [address] documented as of this encounter Visit Diagnoses Not on filedocumented in this encounter Care Teams C Engineer Relationship Specialty Start Date End Date Caitlyn Bowie MD [address] [place], [place] PCP - General Internal Medicine 09/24/24 documented as of this encounter
--- OUTSIDE RECORDS SUMMARY | 2025-05-06 17:33 | XMS_ITS | Clinical Summary ---
Author Organization [facility] Address [address] [place] [address] Care Team Providers Care Spare Hand Name Role Phone Caitlyn Bowie MD Primary Care Provider [phone] Allergies Active Allergy Reactions Criticality Noted Date [...] Breath High 05/09/2008 Bronchospasm or Wheezing Ipratropium [place] Unknown/Patient and Family Unable to Define Medium [...] 1 capsule by mouth daily. Active B Gvegbzc-N-Fdfoz Acid (STRESS 500 B-COMPLEX PO) Take 1 [...] Type Department Care Team Description 04/08/2025 Telephone [facility] Neurology Ophthalmology [address] [phone] Yary Whitten DO Medical Complaint 03/14/2025 Scanned Document [facility] Neurology Ophthalmology [address] [place] [phone] Shirley Chaidez PA-C 03/11/2025 Telephone [facility] Neurology Ophthalmology [address] [phone] Yary Whitten DO Medical Complaint from Last [...] MEDICARE PART A & B [facility] Care Teams Spare Hand Relationship Specialty Start Date End Date Caitlyn Bowie MD [address] [place] [address] PCP - General Internal Medicine 03/20/23
--- OUTSIDE RECORDS SUMMARY | 2025-05-06 17:33 | XMS_ITS | Patient Health Record ---
Author Organization [facility] Address [address] [place] [address] Care Team Providers Care Survey Research Associate Name Role Phone Shruti Bowieberly Primary Care Provider Cristian Fountain Unavailable [phone] Allergies Allergen (clinical drug ingredient) Drug/Non Drug [...] Status W/U Status Risk Notes Problem Diverticulitis (69042899) Diverticulitis (K57.92) Active confirmed Problem Irritable bowel syndrome characterized by constipation (011218260) Irritable bowel syndrome with constipation (K58.9) Active confirmed Problem Gastroesophageal reflux disease (009309193) GERD (gastroesophageal reflux disease) (K21.9) Active confirmed Plan Of Treatment No Information Insurance Providers Payer Name Payer Address Payer Phone Subscriber Number Group Number Insured Name Patient Relationship to Insured Coverage Start Date Coverage End Date MEDICARE OF [place] [address] [place] [address] [id number] DANIEL WATSONE Self - patient is the insured [employer] ATTN CLAIMS [address] [place] [address] [phone] [id number] DANIEL WATSONE Self - patient is the insured Medical (General) History Medical History History ICD Code KS-04/2021-sees Dr. [...] a nd Antiphospholipid antibody--has had DVT's and PE's---Bag Shaker at [place] and Dr. Hogan at [facility] [place] [place] GERD-has had EGD's with Dr. Gomes Pneumomias Hypothyroidism Surgical History Surgery Date(Month/Year) Tonsils and adenoids BOLA Lung cancer-Left lower lobectomy at [facility], XRT, Chemo 2008
--- OUTSIDE RECORDS SUMMARY | 2025-05-06 17:33 | XMS_ITS | Encounter Summary ---
Author Organization [facility] Address [address] [place] [address] Phone Care Team Providers Care Four Slide Machine Operator Name Role Phone Caitlyn Bowie MD Primary Care Provider [phone]- [phone] Encounter Details Date Type Department Care Team (Late Contact Info) Description 12/12/2024 Documentation Only [facility] [address] [place] [address] Marina Adbi [address] [place] [address] Social History Tobacco Use Types [...] [facility] [address] [place] [address] Rubén Ashraf MD [address] [place] [address] [place] [address] documented as of this encounter Visit Diagnoses Not on filedocumented in this encounter Care Teams Four Slide Machine Operator Relationship Specialty Start Date End Date Caitlyn Bowie MD [address] [place], [place] PCP - General Internal Medicine 09/24/24 documented as of this encounter
--- OUTSIDE RECORDS SUMMARY | 2025-05-06 17:33 | XMS_ITS | Encounter Summary ---
Author Organization [facility] Address [address] [place] [address] Phone Care Team Providers Care Manager Night Name Role Phone Caitlyn Bowie MD Primary Care Provider [phone]- [phone] Encounter Details Date Type Department Care Team (Late Contact Info) Description 03/17/2025 Documentation Only [facility] [address] [place] [address] Marina Abdi [address] [place] [address] Social History Tobacco Use Types [...] [facility] [address] [place] [address] Rubén Ashraf MD [address] [place] [address] [place] [address] documented as of this encounter Visit Diagnoses Not on filedocumented in this encounter Care Teams Manager Night Relationship Specialty Start Date End Date Caitlyn Bowie MD [address] [place], [place] PCP - General Internal Medicine 09/24/24 documented as of this encounter
--- OUTSIDE RECORDS SUMMARY | 2025-05-06 17:33 | XMS_ITS | Clinical Summary ---
Author Organization [facility] Address [address] [place] [address] Care Team Providers Care Travel Director Name Role Phone Caitlyn Bowie Primary Care Provider [phone] Allergies Active Allergy Reactions Criticality Noted Date [...] Throat tightness Throat tightness Throat tightness Ipratropium [place] Unknown Medium 12/18/2021 Isosorbide Mononitrate 11/23/2020 Other [...] topic Insurance MEDICARE PART A & B [facility] Care Teams Travel Director Relationship Specialty Start Date End Date Caitlyn Bowie [address] [place] [address] PCP - General Internal Medicine 07/18/22
--- OUTSIDE RECORDS SUMMARY | 2025-05-06 17:33 | XMS_ITS | Clinical Summary ---
Author Organization [facility] Address [address] [place] [address] Care Team Providers Care Diesel Locomotive Engineer Name Role Phone Brennan Burnett MD Primary Care Provider [phone] Allergies Active Allergy Reactions Criticality Noted Date [...] age to complete this topic Care Teams Diesel Locomotive Engineer Relationship Specialty Start Date End Date Brennan Burnett MD [address] [place] [address] PCP - General Internal Medicine 07/06/20
--- OUTSIDE RECORDS SUMMARY | 2025-05-06 17:33 | XMS_ITS | Encounter Summary ---
Author Organization [facility] Address [address] [place] [address] Phone Care Team Providers Care Strong Nitric Operator Name Role Phone Caitlyn Bowie MD Primary Care Provider [phone]- [phone] Encounter Details Date Type Department Care Team (Late st Contact Info) Description 10/01/2024 Documentation Only [facility] [address] [place] [address] Ron Taylor [place] [address] [place] [address] Social History Tobacco Use Types [...] Visit [facility] [address] [place] [address] Rubén Ashraf MD [address] [place] [address] [place] [address] documented as of this encounter Visit Diagnoses Not on filedocumented in this encounter Care Teams Strong Nitric Operator Relationship Specialty Start Date End Date Caitlyn Bowie MD [address] [place], [place] PCP - General Internal Medicine 09/24/24 documented as of this encounter
--- OUTSIDE RECORDS SUMMARY | 2025-05-06 17:33 | XMS_ITS | Encounter Summary ---
Author Organization [facility] Address [address] [place] [address] Phone Care Team Providers Care Bead Filler Name Role Phone Caitlyn Bowie MD Primary Care Provider [phone]- [phone] Encounter Details Date Type Department Care Team (Late Contact Info) Description 12/12/2024 Documentation Only [facility] [address] [place] [address] Marina Abdi [address] [place] [address] Social History Tobacco Use Types [...] [facility] [address] [place] [address] Rubén Ashraf MD [address] [place] [address] [place] [address] documented as of this encounter Visit Diagnoses Not on filedocumented in this encounter Care Teams Bead Filler Relationship Specialty Start Date End Date Caitlyn Bowie MD [address] [place], [place] PCP - General Internal Medicine 09/24/24 documented as of this encounter
--- OUTSIDE RECORDS SUMMARY | 2025-05-06 17:34 | XMS_ITS | Encounter Summary ---
Author Organization [facility] Address [address] [place] [address] Phone Care Team Providers Care Hosiery Pairer Name Role Phone Caitlyn Bowie MD Primary Care Provider [phone]- [phone] Encounter Details Date Type Department Care Team (Late Contact Info) Description 12/10/2024 Documentation Only [facility] [address] [place] [address] Marina Abdi [address] [place] [address] Social History Tobacco Use Types [...] [facility] [address] [place] [address] Rubén Ashraf MD [address] [place] [address] [place] [address] documented as of this encounter Visit Diagnoses Not on filedocumented in this encounter Care Teams Hosiery Pairer Relationship Specialty Start Date End Date Caitlyn Bowie MD [address] [place], [place] PCP - General Internal Medicine 09/24/24 documented as of this encounter
--- OUTSIDE RECORDS SUMMARY | 2025-05-06 17:34 | XMS_ITS | Encounter Summary ---
Author Organization [facility] Address [address] [place] [address] Phone Care Team Providers Care Rate Examiner Name Role Phone Caitlyn Bowie MD Primary Care Provider +1- [phone] Encounter Details Date Type Department Care Team (Late Contact Info) Description 12/10/2024 Documentation Only [facility] [address] [place] [address] Marina Abdi [address] [place] [address] Social History Tobacco Use Types [...] [facility] [address] [place] [address] Rubén Ashraf MD [address] [place] [address] [place] [address] documented as of this encounter Visit Diagnoses Not on filedocumented in this encounter Care Teams Rate Examiner Relationship Specialty Start Date End Date Caitlyn Bowie MD [address] [place], [place] PCP - General Internal Medicine 09/24/24 documented as of this encounter
--- OUTSIDE RECORDS SUMMARY | 2025-05-06 17:34 | XMS_ITS | Encounter Summary ---
Author Organization [facility] Address [address] [place] [address] Phone Care Team Providers Care Barn Manager Name Role Phone Caitlyn Bowie MD Primary Care Provider +1- [phone] Encounter Details Date Type Department Care Team (Late Contact Info) Description 12/10/2024 Documentation Only [facility] [address] [place] [address] Marina Abdi [address] [place] [address] Social History Tobacco Use Types [...] [facility] [address] [place] [address] Rubén Ashraf MD [address] [place] [address] [place] [address] documented as of this encounter Visit Diagnoses Not on filedocumented in this encounter Care Teams Barn Manager Relationship Specialty Start Date End Date Caitlyn Bowie MD [address] [place], [place] PCP - General Internal Medicine 09/24/24 documented as of this encounter
--- OUTSIDE RECORDS SUMMARY | 2025-05-06 17:34 | XMS_ITS | Encounter Summary ---
Author Organization [facility] Address [address] [place] [address] Phone Care Team Providers Care Paramedic Supervisor Name Role Phone Caitlyn Bowie MD Primary Care Provider +1- [phone] Encounter Details Date Type Department Care Team (Late Contact Info) Description 12/10/2024 Documentation Only [facility] [address] [place] [address] Marina Abdi [address] [place] [address] Social History Tobacco Use Types [...] [facility] [address] [place] [address] Rubén Ashraf MD [address] [place] [address] [place] [address] documented as of this encounter Visit Diagnoses Not on filedocumented in this encounter Care Teams Paramedic Supervisor Relationship Specialty Start Date End Date Caitlyn Bowie MD [address] [place], [place] PCP - General Internal Medicine 09/24/24 documented as of this encounter
--- OUTSIDE RECORDS SUMMARY | 2025-05-06 17:34 | XMS_ITS | Clinical Summary ---
Author Organization 175 [facility] Address [address] [place] [address] Phone Care Team Providers Care Loading Unit Operator Powder Charging Name Role Phone Caitlyn Bowie MD Primary Care Provider [phone] Allergies Active Allergy Reactions Criticality Noted Date [...] mg as needed by her previous manager travel which she has taken sporadically. I have asked her to take this daily to see if this improves her symptoms and she has a follow-up appointment with Dr. Shah on September 16 which she will keep. We also had a long conversation regarding the fact that she is seeing 3 different manager travel for the same problems. We informed her [...] to see Dr. Avalos or her manager travel at [facility]. She verbalized understanding [...] antibody syndrome (CMS/HCC V24) 12/24/2018 Adrenal insufficiency ([facility] V24) 08/23/2018 Allergic rhinitis 08/23/2018 Hyperparathyroidism ([facility] V24) 08/23/2018 MRSA infection 08/23/2018 Overview (05/16/2024): 06/2009, s/p thoracotomy infection Osteoarthritis 08/23/2018 Radiation-induced pulmonary fibrosis ([facility] V2 4) 11/13/2017 Bronchiectasis ([facility] V24, [facility] V28) 2017 Leg edema 08/08/2017 Restrictive lung disease 08/08/2017 Chronic obstructive pulmonar y disease ([facility] V24, [facility] V28) 04/13/2017 Fibromyalgia 04/13/2017 Congestive heart failure ([facility] V24, [facility] V 28) 04/04/2017 Heterozygous factor V Leiden mutation ([facility] V 24) 04/04/2017 Obstructive sleep apnea syndrome 04/04/2017 Overview (05/16/2024): CPAP Pleural effusion 04/04/2017 Pulmonary hypertension ([facility] V24, [facility] V28 ) 04/04/2017 Multiple pulmonary [...] Team Description 04/14/2025 10:00 AM EDT Evaluation [address] [phone] Bruno Moreno, PT Gait abnormality (Primary Dx); Cerebral lesion 04/14/2025 Plan of Care Documentation [facility] 175 [facility] [address] [place] [phone] 04/11/2025 Telephone Gastroenterology - [address] [place] [phone] Tim Gomes MD 03/20/2025 11:40 AM EDT Office Visit [facility] 175 [facility] [address] [place] [phone] Ayanna Jaffe MD Optic neuritis (Primary Dx); White matter lesion of central nervous system; Blurry vision 02/24/2025 Telephone Gastroenterology - 299 [facility] 299 [facility] [address] [place] [phone] Tim Gomes MD 02/23/2025 11:40 AM EDT - 02/23/2025 4:22 PM EDT Emergency [facility] [address] [place] [phone] Celia Snider DO Diverticulitis (Primary Dx) Discharge Disposition: Home or Self Care 02/21/2025 4:30 PM EDT Office Visit [address] [phone] Shirley Chaidez PA Optic neuritis (Primary Dx) [...] Chronic obstructive pulmonar y disease (CMS/HCC V24, [facility] V28) 04/13/2017 DX:Chronic obstructive pulm onary [...] V Leiden mutation ([facility] V24) 04/04/2017 DX:Heterozygous factor V [...] oncussion syndrome Pulmonary hypertension ([facility] V24, [facility] V28) 04/04/2017 DX:Pulmonary hypertension (H CC) Restrictive lung disease 08/08/2017 DX:Rest rictive lung disease 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 DX:Zinc deficien cy Obstructive sleep apnea syndrome 04/04/2017 DX:Obstructive sleep apnea syndrome; COMMENT: CPAP Radiation-induced pulmonary fibrosis ([facility] V24) 11/13/2017 DX:Radiation-induced pulmona ry fibrosis (HCC) Adrenal insufficiency ([facility] V24) 08/23/2018 DX:Adrenal insufficiency (HCC) Hyperparathyroidism ([facility] V24) 08/23/2018 DX:Hyperparathyroidism (HCC) Osteoporosis 11/17/2016 DX:Osteoporosis [...] Mx LLL resection, Chemo, RT, Cisplatin, Vinorelbine [id number] Antiphospholipid antibody sy ndrome ([facility] V24) 12/24/2018 DX:Antiphospholipid antibody syndrome (HCC) 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 Hyperparathyroidism ([facility] V24) DX:Hyperparathyroidism (HCC) Adrenal insufficiency ([facility] V24) DX:Adrenal insufficiency (HCC) Family History Medical [...] Info) Description 05/12/2025 1:45 PM EST Treatment [address] [phone] Gene Marshall PTA 05/14/2025 9:45 AM EST Treatment [facility] [address] [phone] Bruno Moreno, PT [address] [place] [address] 05/19/2025 10:30 AM EST Treatment [address] [phone] Bruno Mroeno, PT [address] [place] [address] 05/21/2025 10:15 AM EST Treatment [address] [phone] Gene Marshall, EQUINE SCIENCE INSTRUCTOR 05/26/2025 10:30 AM EST Treatment [address] [phone] Bruno Moreno, PT [address] [place] [address] 05/28/2025 1:30 PM EST Treatment [address] [phone] Gene Marshall, EQUINE SCIENCE INSTRUCTOR 05/29/2025 3:00 PM EST Office Visit [address] [phone] Ayanna Jaffe MD 175 [place] [address] 06/02/2025 10:30 AM EST Treatment [address] [phone] Bruno Moreno, PT [address] [place] [address] 06/04/2025 10:15 AM EST Treatment [address] [phone] Bruno Moreno, PT [address] [place] [address] Health Maintenance Due Date Last Done Comments [...] 4/5 L PT LTG 16 visits from [facility] on 04/14/2025 General Bruno Kaur, PT Note: [...] central nervous system Blurry vision NEUROMYELITIS OPTICA, [id number] Routine 03/20/2025 12:31 PM EDT Optic neuritis [...] [facility] - 03/25/2025 1:05 AM EDT Test(s) [id number] Antibody, Cell-based IFA was developed and its performance characteristics determined by [facility]. It has not been cleared or approved by the Food and Drug Administration. Performed at: [address] [id number] Resawyer: Melissa Wetzel MD, Phone: [phone] Ayanna Jaffe MD LAB BLOOD ORDERABLES Fin al Result Performing Organization Address [facility] de Phone Number [facility] * Neuromyelitis optica, [id number] (03/20/2025 12:31 PM EDT) [facility] NMO IgG Autoantibodies <1.5 0.0 - 3.0 U/mL 03/24/2025 3:05 PM EDT [facility] Comment: Negative: 0.0 - 3.0 Positive: >3.0 Blood Venous blood specimen / Unknown Venipuncture / Unknown 03/20/2025 12:31 PM EDT 03/20/2025 12:31 PM EDT [facility] - 03/24/2025 3:05 PM EDT Performed at: [address] [id number] Resawyer: Melissa Wetzel MD, Phone: [phone] Ayanna Jaffe MD LAB BLOOD ORDERABLES Fin al Result Performing Organization Address [facility] de Phone Number [facility] * (ABNORMAL) CBC auto differential (03/20/2025 12:31 PM EDT) Only the most recent of2 resultswithin the time period is included. [facility] WBC 11.0(H) 4.8 - 10.8 K/mcL LAB HEMETOLOGY METHOD 03/20/2025 2:23 PM EDT [facility] RBC 3.50(L) 3.80 - 4.80 M/mcL LAB HEMETOLOGY METHOD 03/20/2025 2:23 PM EDT [facility] Hemoglobin 11.5 11.5 - 16.0 g/dL LAB HEMETOLOGY METHOD 03/20/2025 2:23 PM EDT [facility] Hematocrit 36.7 35.0 - 47.0 % LAB [facility]OLOG[facility]/20[facility]2025 [facility] MCV 105.2(H) 79.0 - 98.0 FL LAB HEMETOLOGY METHOD 03/20/2025 2:23 PM EDT [facility] MCH 33.0(H) 27.0 - 32.0 pcg LAB HEMETOLOGY METHOD 03/20/2025 2:23 PM [facility] MCHC 31.3(L) 32.0 - 37.0 g/dL LAB HEMETOLOGY METHOD 03/20/2025 2:23 PM [facility] RDW 14.1 11.0 - 15.0 % LAB HEMETOLOGY METHOD 03/20/2025 2:23 PM EDT [facility] Platelets 243 130 - 400 K/mcL LAB HEMETOLOGY METHOD 03/20/2025 2:23 PM [facility] MPV 11.3(H) 7.0 - 11.0 FL LAB HEMETOLOGY METHOD 03/20/2025 2:23 PM [facility] NRBC 0.2 <1.0 % LAB HEMETOLOGY METHOD 03/20/2025 2:23 PM EDT [facility] NRBC Absolute 0.02 <0.10 K/mcL LAB HEMETOLOGY METHOD 03/20/2025 2[facility] Neutrophils Relative 75.9 % LAB HEMETOLOGY METHOD 03/20/2025 2:[facility] Lymphocytes Relative 8.7 % LAB HEMETOLOGY METHOD 03/20/2025 2:[facility] Monocytes Relative 12.2 % LAB HEMETOLOGY METHOD 03/20/2025 2:23 PM EDT [facility] Eosinophils Relative 0.7 % LAB HEMETOLOGY METHOD 03/20/2025 2:23 PM EDT [facility] Basophils Relative 0.7 % LAB HEMETOLOGY METHOD 03/20/2025 2:23 PM EDT [facility] Immature Granulocytes Relative 1.8 % LAB HEMETOLOGY METHOD 03/20/2025 2:23 PM EDT [facility] Neutrophils Absolute 8.36(H) 1.50 - 7.00 K/mcL LAB HEMETOLOGY METHOD 03/20/2025 2:23 PM EDT [facility] Lymphocytes Absolute 0.96(L) 1.00 - 5.00 K/mcL LAB HEMETOLOGY METHOD 03/20/2025 2:23 PM EDT [facility] Monocytes Absolute 1.34(H) 0.20 - 1.00 K/mcL LAB HEMETOLOGY METHOD 03/20/2025 2:23 PM EDT [facility] Eosinophils Absolute 0.08 0.00 - 0.50 K/mcL LAB HEMETOLOGY METHOD 03/20/2025 2:23 PM EDT [facility] Basophils Absolute 0.08 0.00 - 0.20 K/mcL LAB HEMETOLOGY METHOD 03/20/2025 2:23 PM EDT [facility] Immature Granulocytes Absolute 0.20(H) 0.00 - 0.03 K/mcL LAB HEMETOLOGY METHOD 03/20/2025 2:23 PM EDT [facility] Blood Venous blood specimen / Unknown Venipuncture / Unknown 03/20/2025 12:31 PM EDT 03/20/2025 12:31 PM EDT Ayanna Jaffe MD LAB BLOOD ORDERABLES Fin al Result [facility] [address] [place] [address], [place] [phone] * Sedimentation rate (03/20/2025 12:31 PM EDT) Sed Rate 25 0 - 30 mm/hr LAB HEMETOLOGY METHOD 03/20/2025 2:14 PM EDT [facility] Blood Venous blood specimen / Unknown Venipuncture / Unknown 03/20/2025 12:31 PM EDT 03/20/2025 12:31 PM EDT Ayanna Jaffe MD LAB BLOOD ORDERABLES Fin al Result Performing Organization Address [facility]/State/ZIP Co de Phone Number [facility] [address] [place] [address], [place] [phone] * ECG-Annotated (02/24/2025) Provider Onbase MD ECG ORDERABLES Final Result * CT Head wo Contrast (02/23/2025 2:53 PM EDT) Anatomical Region Laterality Modality Head and Neck Computed Tomogra phy 02/23/2025 2:57 PM EDT Impressions 02/23/2025 3:01 PM EDT Impression: No acute hemorrhage or intracranial mass effect. No significant change. Telerad PA ([id number]) -------- FINAL REPORT -------- Dictated By: Fawn Levin Dictated Date: 02/23/2025 14:57 ET Assigned Physician: Fawn Levin Reviewed and Electronically Signed By: Fawn Levin Signed Date: 02/23/2025 15:01 ET Workstation ID: [id number] Transcribed By: Self Edit Transcribed Date: 02/23/2025 [...] mass effect. No significant change. Telekarla KAPOOR ([id number]) -------- FINAL REPORT -------- Dictated By: Fawn Levin Dictated Date: 02/23/2025 14:57 ET Assigned Physician: Fawn Levin Reviewed and Electronically Signed By: Fawn Levin Signed Date: 02/23/2025 15:01 ET Workstation ID: [id number] Transcribed By: Self Edit Transcribed Date: 02/23/2025 [...] appropriate, to exclude this possibility. Telekarla KAPOOR ([id number]) -------- FINAL REPORT -------- Dictated By: Fawn Levin Dictated Date: 02/23/2025 15:01 ET Assigned Physician: Fawn Levin Reviewed and Electronically Signed By: Fawn Levin Signed Date: 02/23/2025 15:05 ET Workstation ID: [id number] Transcribed By: Self Edit Transcribed Date: 02/23/2025 15:01 ET Narrative 02/23/2025 3:05 PM EDT History: Left lower quadrant abdominal pain. Comparison: 08/23/23 Technique: Helical volumetric imaging of the abdomen and pelvis was performed without intravenous or oral contrast. DLP: 480.07 mGy/cm HIT [employer] VCT Iterative reconstruction technique Findings: Chronic pleural-parenchymal [...] intravenous or oral contrast. DLP: 480.07 mGy/cm HIT [employer] VCT Iterative reconstruction technique Findings: Chronic pleural-parenchymal [...] appropriate, to exclude this possibility. Telekarla KAPOOR ([id number]) -------- FINAL REPORT -------- Dictated By: Fawn Levin Dictated Date: 02/23/2025 15:01 ET Assigned Physician: Fawn Levin Reviewed and Electronically Signed By: Fawn Levin Signed Date: 02/23/2025 15:05 ET Workstation ID: [id number] Transcribed By: Self Edit Transcribed Date: 02/23/2025 15:01 ET us Afsaneh KAPOOR IMG CT PROCEDURES Final Resu lt * Lactate, with reflex (02/23/2025 2:25 PM EDT) LACTIC ACID 1.1 0.4 - 2.0 mmol/L LAB CHEMISTRY METHOD 02/23/2025 3:25 PM EDT [facility] Blood Venous blood specimen / Unknown Venipuncture / Unknown 02/23/2025 2:25 PM EDT 02/23/2025 2:35 PM EDT us Afsaneh KAPOOR LAB BLOOD ORDERABLES Final R esult Performing Organization Address City/[facility] Co de Phone Number [facility] [address] [place] [address], [place] [phone] * Blood Culture, Peripheral Draw #2 (02/23/2025 2:25 PM EDT) Only the most recent of2 resultswithin the time period is included. Pathologist [facility] Culture, Blood No growth at 5 days 02/28/2025 3:01 PM EDT [facility] Blood Venous blood specimen / Unknown Venipuncture / Unknown 02/23/2025 2:25 PM EDT 02/23/2025 2:35 PM EDT Afsaneh KAPOOR LAB MICROBIOLOGY - GENERAL O RDERABLES Final Result Performing Organization Address City/[facility]/ZIP Co de Phone Number [facility] [address] [place] [address], [place] [phone] * XR Chest 1 View (02/23/2025 2:15 PM EDT) Anatomical Region Laterality Modality Body Radiographic Monserrat ging 02/23/2025 2:33 PM EDT Impressions 02/23/2025 2:37 PM EDT Impression: Stable radiographic appearance of the chest, including volume loss and chronic pleural-parenchymal opacity in the left hemithorax consistent with previously treated lung carcinoma. No acute process identified. Telerad PA ([id number]) -------- FINAL REPORT -------- Dictated By: Fawn Levin Dictated Date: 02/23/2025 14:33 ET Assigned Physician: Fawn Levin Reviewed and Electronically Signed By: Fawn Levin Signed Date: 02/23/2025 14:37 ET Workstation ID: [id number] Transcribed By: Self Edit Transcribed Date: 02/23/2025 14:33 ET Narrative 02/23/2025 2:37 PM EDT History: Dyspnea. Personal history of lung carcinoma. Comparison: 07/30/23, thoracic CT 09/09/24 [place], [place] Findings: Portable AP upright chest at [...] lung carcinoma. Comparison: 07/30/23, thoracic CT 09/09/24 [place], [place] Findings: Portable AP upright chest at [...] carcinoma. No acute process identified. Telerad PA ([id number]) -------- FINAL REPORT -------- Dictated By: Fawn Levin Dictated Date: 02/23/2025 14:33 ET Assigned Physician: Fawn Levin Reviewed and Electronically Signed By: Fawn Levin Signed Date: 02/23/2025 14:37 ET Workstation ID: [id number] Transcribed By: Self Edit Transcribed Date: 02/23/2025 14:33 ET Afsaneh KAPOOR IMG XR PROCEDURES Final Resu lt * Urinalysis with reflex microscopic and culture (02/23/2025 2:04 PM EDT) Pathologist [facility] Specific [place] Urine 1.006 1.003 - 1.030 LAB URINALYSIS - AUTOMATED METHOD 02/23/2025 2:17 PM EDT [facility] pH, Urine 7.5 5.0 - 8.0 pH LAB URINALYSIS - AUTOMATED METHOD 02/23/2025 2:17 PM [facility] Leukocytes, Urine Negative Negative LAB URINALYSIS - AUTOMATED METHOD 02/23/2025 2:17 PM [facility] Nitrite, Urine Negative Negative LAB URINALYSIS - AUTOMATED METHOD 02/23/2025 2:17 PM [facility] Protein, Urine Negative <=Trace mg/dL LAB URINALYSIS - AUTOMATED METHOD 02/23/2025 2:17 PM [facility] Glucose, Urine Negative Negative mg/dL LAB URINALYSIS - AUTOMATED METHOD 02/23/2025 2:17 PM [facility] Ketones, Urine Negative Negative mg/dL LAB URINALYSIS - AUTOMATED METHOD 02/23/2025 2:17 PM [facility] Urobilinogen, Urine 0.2 0.2 - 1.0 mg/dL LAB URINALYSIS - AUTOMATED METHOD 02/23/2025 2:17 PM [facility] Bilirubin, Urine Negative Negative LAB URINALYSIS - AUTOMATED METHOD 02/23/2025 2:17 PM [facility] Blood, Urine Negative Negative LAB URINALYSIS - AUTOMATED METHOD 02/23/2025 2:17 PM EDT [facility] Urine Urine specimen obtained by clean catch procedure / Unknown Non-blood Collection / Unknown 02/23/2025 2:04 PM EDT 02/23/2025 2:05 PM EDT Afsaneh KAPOOR LAB URINE ORDERABLES Final R esult Performing Organization Address City/[facility]/ZIP Co de Phone Number [facility] [address] [place] [address], [place] [phone] * Martinez urine culture tube (02/23/2025 2:04 PM EDT) [facility] Extra Tube Hold for add-ons. 02/23/2025 4:01 PM EDT [facility] Comment:Auto resulted. Urine Urine specimen obtained by clean catch procedure / Unknown Non-blood Collection / Unknown 02/23/2025 2:04 PM EDT 02/23/2025 2:05 PM EDT Afsaneh KAPOOR LAB URINE ORDERABLES Final R esult Performing Organization Address City/[facility] Co de Phone Number [facility] [address] [place] [address], [place] [phone] * Troponin I high sensitivity (02/23/2025 1:15 PM EDT) [facility] High Sensitivity Troponin I 25 <=54 ng/L LAB CHEMISTRY METHOD 02/23/2025 2:15 PM EDT [facility] Blood Venous blood specimen / Unknown Venipuncture / Unknown 02/23/2025 1:15 PM EDT 02/23/2025 1:39 PM EDT Narrative [facility] - 02/23/2025 2:15 PM EDT High levels of biotin in samples may falsely decrease hsTroponin values. Use caution when interpreting hsTroponin results in patients taking biotin who exhibit renal impairment (eGFR <60) or in patients taking more than 20 mg/day of biotin. us Afsaneh KAPOOR LAB BLOOD ORDERABLES Final R esult Performing Organization Address City/[facility]/ZIP Co de Phone Number [facility] [address] [place] [address], [place] [phone] * (ABNORMAL) Prothrombin time with INR (02/23/2025 1:15 PM EDT) [facility] Protime 14.9(H) 10.6 - 13.9 sec LAB COAGULATION METHOD 02/23/2025 1:52 PM EDT [facility] INR 1.2 LAB COAGULATION METHOD 02/23/2025 1:52 PM EDT [facility] Blood Venous blood specimen / Unknown Venipuncture / Unknown 02/23/2025 1:15 PM EDT 02/23/2025 1:40 PM EDT us Afsaneh KAPOOR LAB BLOOD ORDERABLES Final R esult Performing Organization Address City/[facility]/ZIP Co de Phone Number [facility] [address] [place] [address], [place] [phone] * Type and screen (02/23/2025 1:15 PM EDT) [facility] ABO Group A 02/23/2025 2:47 PM EDT [facility] Rh Type Positive 02/23/2025 2:47 PM EDT [facility] Antibody Screen Negative 02/23/2025 2:47 PM EDT [facility] Blood Venous blood specimen / Unknown Venipuncture / Unknown 02/23/2025 1:15 PM EDT 02/23/2025 1:40 PM EDT us Afsaneh KAPOOR LAB BLOOD BANK TEST ORDERABL ES Final Result [facility] [address] [place] [address], * (ABNORMAL) Comprehensive Metabolic Panel (CMP) (02/23/2025 1:15 PM EDT) Sodium 136 133 - 145 mmol/L LAB CHEMISTRY METHOD 02/23/2025 2:13 PM EDT [facility] Potassium 3.5 3.5 - 5.5 mmol/L LAB CHEMISTRY METHOD 02/23/2025 2:13 PM EDT [facility] Chloride 97 96 - 110 mmol/L LAB CHEMISTRY METHOD 02/23/2025 2:13 PM [facility] CO2 33(H) 21 - 32 mmol/L LAB CHEMISTRY METHOD 02/23/2025 2:13 PM EDT [facility] Anion Gap 6 3 - 11 LAB CHEMISTRY METHOD [facility]2025 [facility] Glucose 100 70 - 100 mg/dL LAB CHEMISTRY METHOD 02/23/2025 2:13 PM [facility] BUN 23 5 - 25 mg/dL LAB CHEMISTRY METHOD 02/23/2025 2:13 PM [facility] Creatinine 0.83 0.50 - 1.10 mg/dL LAB CHEMISTRY METHOD 02/23/2025 2:13 PM EDT [facility] eGFR 71 >=60 mL/min/1. 73m2 LAB CHEMISTRY METHOD 02/23/2025 2:13 PM [facility] Comment:Calculation based on the Chronic Kidney Disease Epidemiology Collaboration (CKD-EPI) equation refit without adjustment for race. BUN/Creatinine Ratio 27.7 LAB CHEMISTRY METHOD 02/23/2025 2:13 PM T [facility] Calcium 10.0 8.5 - 10.5 mg/dL LAB CHEMISTRY METHOD 02/23/2025 2:13 PM EDT [facility] AST (SGOT) 29 10 - 42 unit/L LAB CHEMISTRY METHOD 02/23/2025 2:13 PM EDT [facility] ALT (SGPT) 24 10 - 60 unit/L LAB CHEMISTRY METHOD 02/23/2025 2:13 PM EDT [facility] Alkaline Phosphatase 72 42 - 121 unit/L LAB CHEMISTRY METHOD 02/23/2025 2:13 PM EDT [facility] Total Protein 6.9 6.0 - 8.0 g/dL LAB CHEMISTRY METHOD 02/23/2025 2:13 PM EDT [facility] Albumin 3.5 3.2 - 5.0 g/dL LAB CHEMISTRY METHOD 02/23/2025 2:13 PM EDT [facility] Total Bilirubin 0.5 0.0 - 1.4 mg/dL LAB CHEMISTRY METHOD 02/23/2025 2:13 PM EDT [facility] Blood Venous blood specimen / Unknown Venipuncture / Unknown 02/23/2025 1:15 PM EDT 02/23/2025 1:39 PM EDT Afsaneh KAPOOR LAB BLOOD ORDERABLES Final R esult [facility] [address] [place] [address], * 12-Lead ECG (02/23/2025 1:05 PM EDT) Ventricular Rate ECG 79 BPM GEMUSE Atrial Rate 79 BPM GEMUSE P-R Interval 164 ms GEMUSE QRS Duration 138 ms GEMUSE Q-T Interval 422 ms GEMUSE QTc 483 ms GEMUSE P Wave [place] 68 degrees GEMUSE R [place] -59 degrees GEMUSE T [place] 62 degrees GEMUSE ECG Interpretation Normal sinus [...] Documents on File Type Date Recorded 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
--- OUTSIDE RECORDS SUMMARY | 2025-05-06 17:34 | XMS_ITS | Encounter Summary ---
Author Organization [facility] Address [address] [place] [address] Care Team Providers Care Resource Paraprofessional Name Role Phone Pcp, No Primary Care Provider Brennan Mario MD Primary Care Provider [phone] Caitlyn Bowie MD Primary Care Provider [phone]- [phone] Encounter Details Date Type Department Care Team (Late st Contact Info) Description 01/04/2022 Scanned Document [facility] Neurology Ophthalmology [address] [address] Yary Whitten DO [address] [place] [address] Social History Tobacco Use Types Packs/Day [...] filedocumented in this encounter Care Teams Resource Paraprofessional Relationship Specialty Start Date End Date Pcp, No PCP - General General Medicine 10/04/21 07/18/22 Brennan Burnett MD [address] [place] [address] PCP - General 07/19/22 03/19/23 Caitlyn Bowie MD [address] [place] [address] PCP - General Internal Medicine 03/20/23 documented as of this encounter
--- OUTSIDE RECORDS SUMMARY | 2025-05-06 17:34 | XMS_ITS | Encounter Summary ---
Author Organization [facility] Address [address] [place] [address] Care Team Providers Care Case Specialist Name Role Phone Caitlyn Bowie MD Primary Care Provider [phone]- [phone] Encounter Details Date Type Department Care Team (Late st Contact Info) Description 03/14/2025 Scanned Document [facility] Neurology Ophthalmology [address] [place] [address] Shirley Chaidez PA-C [address] [address] Social History Tobacco Use Types Packs/Day Years [...] on filedocumented in this encounter Care Teams Case Specialist Relationship Specialty Start Date End Date Caitlyn Bowie MD [address] [place] [address] PCP - General Internal Medicine 03/20/23 documented as of this encounter
--- OUTSIDE RECORDS SUMMARY | 2025-05-06 17:34 | XMS_ITS | Clinical Summary ---
Author Organization [facility] Address [address] [place] [address] Phone Care Team Providers Care Red Leader [...] (12/25/2021 4:22 PM EDT): Followed closely by environmental health manager-Dr. Ronald Mills at [facility] hematology- advised to continue Coumadin anticoagulation [...] (09/09/2021 10:42 PM EST): Followed closely by environmental health manager-Dr. Ronald Mills at [facility] hematology- last seen on 08/05/2021 and [...] clinic to keep INR at 1.5-2.0. manager long term care current use of systemic steroids 09/09 Assessment & Plan (12/10/2021 10:38 AM EDT): Carefully continue alternating low dosing as prescribed by her wine sales representative and consider gentle taper when ready. Daily [...] alternating low dosing as prescribed by her wine sales representative and consider gentle taper when ready. Daily [...] 11:40 AM EST Office Visit [facility] [address] [place] [address] [place] [address] Anna Ellis MD [address] [place] [address] [facility] [place] [address] [email or web address] Health Maintenance Due Date Last Done Comments [...] MD LAB BLOOD ORDERABLES F inal Result [facility] [address] [place] [address] from Last 3 Months or Most Recently Relevant to Health Maintenance Insurance MEDICARE PART A & B [facility] MEDEX SUPPLEMENT HEALTH SAFETY NET [facility]ULL [facility] MEDICARE PART A & B [facility] MEDEX SUPPLEMENT HEALTH SAFETY NET FULL [facility] MEDICARE PART A & B [facility] MEDEX SUPPLEMENT HEALTH SAFETY NET FULL [facility] MEDICARE [facility] A & B [facility] MEDEX SUPPLEMENT [facility] SAFETY NET FULL [facility] MEDICARE PART A & B [facility] MEDEX SUPPLEMENT HEALTH SAFETY NET [facility] MEDICARE PART A & B [facility] MEDEX SUPPLEMENT [facility] MEDICARE PART A & B [facility] MEDEX SUPPLEMENT HEALTH SAFETY NET [facility]ULL [facility] MEDICARE PART A & B [facility] MEDEX SUPPLEMENT [facility] MEDICARE PART A & B [facility] MEDEX SUPPLEMENT [facility] SAFETY NET FULL [facility] Care Teams Red Leader Relationship Specialty Start Date End Date Caitlyn Bowie MD [address] [place] [address] PCP - General Internal Medicine 09/09/21 Additional Source Comments The information contained in this document represents components of the legal health record. It is not the complete legal health record.[facility]
--- OUTSIDE RECORDS SUMMARY | 2025-05-06 17:34 | XMS_ITS | Encounter Summary ---
Author Organization [facility] Address [address] [place] [address] Phone Care Team Providers Care Warpman Name Role Phone Caitlyn Bowie MD Primary Care Provider +1- [phone] Encounter Details Date Type Department Care Team (Late st Contact Info) Description 10/10/2024 Documentation Only [facility] [address] [place] [address] Ron Taylor [place] [address] [place] [address] Social History Tobacco Use Types [...] Visit [facility] [address] [place] [address] Rubén Ashraf MD [address] [place] [address] [place] [address] documented as of this encounter Visit Diagnoses Not on filedocumented in this encounter Care Teams Warpman Relationship Specialty Start Date End Date Caitlyn Bowie MD [address] [place], [place] PCP - General Internal Medicine 09/24/24 documented as of this encounter
--- OUTSIDE RECORDS SUMMARY | 2025-05-06 17:34 | XMS_ITS | Encounter Summary ---
Author Organization [facility] Address [address] [place] [address] Phone Care Team Providers Care C++ Professor Name Role Phone Caitlyn Bowie MD Primary Care Provider [phone]- [phone] Encounter Details Date Type Department Care Team (Late Contact Info) Description 12/10/2024 Documentation Only [facility] [address] [place] [address] Marina Abdi [address] [place] [address] Social History Tobacco Use Types [...] [facility] [address] [place] [address] Rubén Ashraf MD [address] [place] [address] [place] [address] documented as of this encounter Visit Diagnoses Not on filedocumented in this encounter Care Teams C++ Professor Relationship Specialty Start Date End Date Caitlyn Bowie MD [address] [place], [place] PCP - General Internal Medicine 09/24/24 documented as of this encounter
--- OUTSIDE RECORDS SUMMARY | 2025-05-06 17:34 | XMS_ITS | Clinical Summary ---
Author Organization [facility], Address [address] [place] [address] [place] [address] Phone Care Team Providers Care Employee Benefits Attorney Name Role Phone Caitlyn Bowie MD Primary Care Provider +1- [phone] Allergies Active Allergy Reactions Criticality Noted Date [...] [facility] [address] [place] [address] Marina Abdi 03/17/2025 Documentation Only [facility] [address] [place] [address] Marina Abdi 03/17/2025 Office Communication [facility] [address] [place] [address] Marina Abdi 03/17/2025 Orders Only [facility], [address] [place] [address] Marina Abdi Smells of urine [...] Visit [facility], [address] [place] [address] Rubén Ashraf MD [address] [facility] [place] [address] Health Maintenance Due Date Last Done Comments Influenza Vaccine (#1) 2025 0, 04/22/2019, 04/18/2016 Pneumococcal Vaccine: 50+ Years Completed 08/31/2021, 03/25/2016, 09/17/2015, Additional history exists Hepatitis B Vaccine Aged Out No longe r eligible based on patient's age to complete this topic Insurance Medicare [facility] Care Teams Employee Benefits Attorney Relationship Specialty Start Date End Date Caitlyn Bowie MD [address] [place], [place] PCP - General Internal Medicine 09/24/24
--- OUTSIDE RECORDS SUMMARY | 2025-05-06 17:34 | XMS_ITS | Data Portability ---
Author Organization [place] [facility] Address [address] [place] [address] Care Team Providers Care Surveyor Chain Helper Name Role Phone DEVENDRA EVELIN Primary Care [...] 911 activated Plan/Discussion: EMS handoff given to [facility] In order to obtain further information and compare any laboratory results/values, I have accessed old patient records. This information was pertinent in my medical decision making today. [email or web address] Not available 03/14/2021 13:20:46 07/18/2021 07/18/2021 Overview/History [...] as of yet. 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 This [...] after care of this [facility]. Time On Scene [...] noting blood on her pillow approximately 3 togiak when she woke this morning. She has [...] of this patient according to [facility]'s infection prevention protocols. [email or web address] Not available 12/29/2021 14:43:37 Plan of Treatment Reminders Order Date Submit Date Provider Last Modified By Organization Details Last Modified Time Details Appointments None recorded. Lab None recorded. Referral None recorded. Procedures None recorded. Surgeries None recorded. Imaging None recorded. Medication Orders docusate sodium 100 mg capsule 2021 022 lnovia [id number], [address] [facility], [place], [address], 19:28:14 Patient TargetsNo targets recorded. Patient Instructions Encounter Date Encounter Id Patient Instructions Last Modified By Organization Details Last Modified Time 03/14/2021 [id number] Thank you for yo ur visit with [facility] today. You were seen today for [...] in your condition between 8am-10pm, please call [facility] at [phone] to help navigate your care. [email or web address] Not available 03/14/2021 12:46:32 10/18/2021 [id number] It was great to see you today! Thank you for letting [employer] [facility] assist you in your medical needs [...] follow up with your PCP please [facility]. Please present to [...] 1.2 0.9-1. 2 Not Available [facility] [address], [place], [address], 02/11/2021 16:58:14 02/12/20 21 02/11/2021 , sylvia vance lower extre mity No observ ation record ed. [address] (Imaging) [address] [place], [address], 02/12/2021 08:19:41 Result Notes None recorded. Problems Name Problem SNOMED Code Status Onset Date Resolution Date Notes Provider Name and Address Organization Details Recorded Time Chronic obstructive pulmonary disease 11418170 Active 2018 ARCELAI PATELALON WINSTON [address], [place], [address], [place] [facility] 9 12:59:21 Problem Notes None recorded. Procedures Surgical History Date Name Laterality Status Provider Name and Address Organization Details Recorded Time Total Hysterectomy completed Cristine Sidhu, ALON [address], [place], [address], [place] [facility] 10/18/2021 19:39:45 lobectomy of lung completed Cristine frazier, BILINGUAL MANAGER [address], [place], [address], [place] [facility] 10/18/2021 19:40:05 Remove tonsils and adenoids completed Cristine Sidhu, ALON [address], [place], [address], [place] [facility] 10/18/2021 19:40:22 Imaging Results None recorded. Procedure Notes None recorded. Medical Equipment None Reported. Allergies Allergen ID Allergen Name Allergen Category Reaction Reaction Severity Criticality Documentation Date Start Date Code Code System Note Provider Name and Address Organization Details Recorded Time 77579 Product containin g penicilli n (product) medicatio n Not available Not available Not available 06/15/2019 26087 8001 SNOMED ARCELIA AMANDAALON WINSTON [address], [place], [address], [place] [facility] 9 12:56:48 67758 Substance with sulfonami de structure and antibacte rial mechanism of action (substanc e) medicatio n Not available Not available Not available 06/15/2019 54817 8003 SNOMED ARCELIA AMANDAALON WINSTON [address], [place], [address], [place] [facility] 9 12:56:54 91855 Voltaren medicatio n Not available Not available Not available 06/15/201954339 6 RxNorm ARCELIA FAJARDO , BILINGUAL MANAGER [address], [place], [address], [place] [facility] 9 12:57:01 02205 Iodinated contrast media (substanc e) medicatio n Not available Not available Not available 06/15/2019 04337 2004 SNOMED ARCELIA FAJARDO , BILINGUAL MANAGER [address], [place], [address], [place] [facility] 9 12:57:07 65699 vancomyci n medicatio n Not available Not available Not available 06/15/2019 27140 RxNorm ARCELIA FAJARDO , BILINGUAL MANAGER [address], [place], [address], [place] [facility] 9 12:57:14 08251 gentamici n medicatio n Not available Not available Not available 06/15/2019 46656 50 RxNorm ARCELIA FAJARDO , BILINGUAL MANAGER [address], [place], [address], [place] [facility] 9 12:57:20 75465 Biaxin medicatio n Not available Not available Not available 06/15/201921648 9 RxNorm ARCELIA FAJARDO , BILINGUAL MANAGER [address], [place], [address], [place] [facility] 9 12:57:27 45870 Avelox medicatio n Not available Not available Not available 06/15/2019 37939 6 RxNorm ARCELIA FAJARDO , BILINGUAL MANAGER [address], [place], [address], [place] [facility] 9 12:57:34 46982 erythromy jaylon medicatio n Not available Not available Not available 06/15/2019 4053 RxNorm ARCELIA FAJARDO , BILINGUAL MANAGER [address], [place], [address], [place] [facility] 9 12:57:41 75658 Zithromax medicatio n Not available Not available Not available 06/15/2019 85364 4 RxNorm ARCELIA FAJARDO , BILINGUAL MANAGER [address], [place], [address], [place] [facility] 9 12:57:51 25725 Levaquin medicatio n Not available Not available Not available 06/15/2019 61967 2 RxNorm ARCELIA FAJARDO , BILINGUAL MANAGER [address], [place], [address], [place] [facility] 9 12:58:02 73143 Cipro medicatio n Not available Not available Not available 06/15/2019 64212 3 RxNorm ARCELIA FAJARDO , BILINGUAL MANAGER [address], [place], [address], [place] [facility] 9 12:58:08 01368 morphine medicatio n Not available Not available Not available 06/15/2019 7052 RxNorm ARCELIA FAJARDO , BILINGUAL MANAGER [address], [place], [address], [place] [facility] 9 12:58:20 76459 procaine hydrochlo ride medicatio n Not available Not available Not available 06/15/2019 84807 8 RxNorm ARCELIA FAJARDO , BILINGUAL MANAGER [address], [place], [address], [place] [facility] 9 12:58:42 96015 barium sulfate medicatio n Not available Not available Not available 06/15/2019 1331 RxNorm ARCELIA FAJARDO , BILINGUAL MANAGER [address], [place], [address], [place] [facility] 9 12:58:54 70976 Gastrogra fin medicatio n Not available Not available Not available 06/15/2019 44517 5 RxNorm ARCELIA FAJARDO , BILINGUAL MANAGER [address], [place], [address], [place] [facility] 9 12:59:01 66241 Flagyl medicatio n Not available Not available Not available 06/15/2019 27686 6 RxNorm ARCELIA FAJARDO , BILINGUAL MANAGER [address], [place], [place], [address], [place] [facility] 9 12:59:06 79643 shrimp allergeni c extract food Not available Not available Not available 06/15/2019 21422 2 RxNorm ARCELIA FAJARDO , BILINGUAL MANAGER [address], [place], [place], [address], [place] [facility] [...] /min 98.9 [degF] 112/58 mm[Hg] Not Available [facility] 2 11:16:01 Date Recorded Heart rate Oxygen saturation Oxygen saturation in Arterial blood by Pulse oximetry Respiratory rate Body temperature Systolic And Diastolic Systolic And Diastolic Provider Name and Address Organization Details Last Updated DateTime 2 80 /min 96 % 96 % 18 /min 98.9 [degF] 142/66 mm[Hg] 128/60 mm[Hg] Not Available [facility] 2 20:16:17 Date Recorded Oxygen saturation Oxygen saturation in Arterial blood by Pulse oximetry Heart rate Respiratory rate Body temperature Systolic And Diastolic Provider Name and Address Organization Details Last Updated DateTime 2 96 % 96 % 77 /min 18 /min 98.6 [degF] 122/60 mm[Hg] Not Available [facility] 2 13:41:00 Date Recorded Heart rate Respiratory rate Oxygen saturation Oxygen saturation in Arterial blood by Pulse oximetry Body temperature Systolic And Diastolic Provider Name and Address Organization Details Last Updated DateTime 1 76 /min 16 /min 97 % 97 % 99 [degF] 114/62 mm[Hg] Not Available [facility] 1 12:53:01 Social History Question Answer Notes LastModified by Organizat ion Details LastModified Time Tobacco Smoking Status Never Smoker ARCELIA FAJARDO, ALON [address] [place], [address], [place] [facility] 06/15/2019 13:05:25 Do You [...] ICD10 Code Diagnosis IMO Codes Diagnosis Note [id number] ARCELIA FAJARDO NP [facility] [address] [facility] [address] 06/15/2019 12:54:37 06/17/2019 13:06:33 Excoriation of skin 013114233 T14.8XXA [id number] JANIS GILBERT NP [facility] [address] [facility] [address] 11/13/2019 16:03:00 11/18/2019 14:53:37 Pain in lower limb 80464596 M79.661 [id number] ARCELIA FAJARDO NP [facility] [address] [facility] [address] 03/14/2020 20:02:43 03/18/2020 21:30:46 Traumatic hematoma 953652230 T14.8XXA Long-term current use of anticoagulant 834287428 Z79.01 Pain in left foot 173485 4401 45818 M79.672 [id number] EMELIA TOMPKINS [facility] [address] [facility] [address] 03/20/2020 12:50:59 03/23/2020 17:54:28 Contusion of lower leg 26898371 S80.10XA Swelling of lower leg 44 6530258 R22.42 [id number] JAMES GARCIA NP [facility] [address] [place] [address] 09/29/2020 11:41:21 09/29/2020 12:38:57 Pain of intercostal space 293973073 R07.82 Exposure t o communicable disease 091440406 Z20.822 [id number] Waleska Matos NP [facility] [address] [place] [address] 02/11/2021 16:34:32 02/12/2021 11:08:44 Hematoma of lower leg 949602986 S80.11XA [id number] JAMES GARCIA NP [facility] [address] [facility] [address] 03/14/2021 12:45:30 03/19/2021 14:09:43 Abdominal pain 03408474 R10.9 [id number] EMELIA Alfonso [facility] [address] [facility] [place] [address] 07/18/2021 10:56:56 07/22/2021 23:43:22 Constipation 61921165 K59.00 Left lower quadrant pain 670880131 R10.32 [id number] Cristine Sidhu NP [facility] [address] [facility] [address] 10/18/2021 19:17:00 11/10/2021 16:33:03 Left sided abdominal pain 245009544 R10.9 Hematoma of lower leg 44 8568874 S80.10XA Long-term current use of anticoagulant 105281177 Z79.01 [id number] Cristine Sidhu NP [facility] [address] [facility] [address] 12/29/2021 13:36:24 12/30/2021 10:20:27 Blood coagulation disorder 07671359 D68.61 D68.2 [id number] Olivia Goldberg NP [facility] [address] [facility] [address] 01/18/2023 14:00:39 01/18/2023 15:01:49 Health Concerns Section Related Observation LastModified by Organization Detai ls LastModified Time None Recorded Concern Status LastModified by Organization Details LastModified Time None Recorded Advance Directives Directive Y: Payers Insurance Date Sequence Insurance Name Policy Number Policy Pettit Covered Member ID Pettit Member ID Guarantor Name 01/18/2023 2 [place] [id number] Jovana Malik [id number] Jovana Malik 10/18/2021 1 *SELF PAY* Jovana Malik [id number] Jovana Malik 10/18/2021 2 [place] Jovana Malik [id number] Jovana Steinino 01/17/2023 2 [place] [id number] Jovana Malik [id number] Jovana Malik 10/18/2021 1 MEDICARE [place] [facility] Jovana Malik [id number] Jovana Malik 01/18/2023 1 [place] [facility] Jovana Malik [id number] Jovana Malik Notes Date Note Type Note Provider Name and Address Organization Details Recorded Time 1 text/html General HPI Template - DHReported by Patient This is a 75-year-old female, known to [employer], who calls with concerns for severe abdominal [...] fair fluid intake. JAMES GARCIA, ALON [address], [place], [address], [place] [facility] 03/14/2021 13:21:32 2 text/html 76 YO [...] asscociated sx's. EMELIA Ni [address], [place], [address], [place] [facility] 07/18/2021 12:04:00 2 text/html [...] evaluated. Cristine Sidhu NP [address], [place], [address], [place] [facility] 11/09/2021 02:11:05 2 text/html [...] supernatural. Cristine Sidhu NP [address], [place], [address], [place] [facility] 12/29/2021 14:43:53 3 text/html pt did not answer, visit canceled Olivia Goldberg NP [address], [place], [address], [place] [facility] 01/18/2023 19:34:36 OBGyn Episode No OBEpisode recorded.
--- OUTSIDE RECORDS SUMMARY | 2025-05-06 17:34 | XMS_ITS | Encounter Summary ---
Author Organization [facility] Address [address] [place] [address] Phone Care Team Providers Care Eyelet Row Marker Name Role Phone Caitlyn Bowie MD Primary Care Provider +1- [phone] Encounter Details Date Type Department Care Team (Late Contact Info) Description 12/10/2024 Documentation Only [facility] [address] [place] [address] Marina Abdi [address] [place] [address] Social History Tobacco Use Types [...] [facility] [address] [place] [address] Rubén Ashraf MD [address] [place] [address] [place] [address] documented as of this encounter Visit Diagnoses Not on filedocumented in this encounter Care Teams Eyelet Row Marker Relationship Specialty Start Date End Date Caitlyn Bowie MD [address] [place], [place] PCP - General Internal Medicine 09/24/24 documented as of this encounter
--- OUTSIDE RECORDS SUMMARY | 2025-05-06 17:35 | XMS_ITS | Encounter Summary ---
Author Organization [facility] Address [address] [place] [address] Care Team Providers Care Engine Dynamometer Tester Name Role Phone Pcp, No Primary Care Provider Brennan Mario MD Primary Care Provider [phone] Caitlyn Bowie MD Primary Care Provider [phone] Encounter Details Date Type Department Care Team (Late st Contact Info) Description 01/04/2022 Scanned Document [facility] Neurology Ophthalmology [address] [address] Yary Whitten DO [address] [place] [address] Social History Tobacco Use Types Packs/Day [...] on filedocumented in this encounter Care Teams Engine Dynamometer Tester Relationship Specialty Start Date End Date Pcp, No PCP - General General Medicine 10/04/21 07/18/22 Brennan Burnett MD [address] [place] [address] PCP - General 07/19/22 03/19/23 Caitlyn Bowie MD [address] [place] [address] PCP - General Internal Medicine 03/20/23 documented as of this encounter
--- OUTSIDE RECORDS SUMMARY | 2025-05-06 17:35 | XMS_ITS | Patient Health Record ---
Author Organization [facility] Address [address] [facility] [address] [place] [address] Care Team Providers Care Reporting Developer Name Role Phone EVELIN RAMSAY Primary Care Provider Yenny Hou Unavailable [phone] Allergies Allergen (clinical drug ingredient) Drug/Non Drug [...] Start Date End Date Status Advair HFA 230-21MCG/ACT 2 Inhalation tw ice daily; Duration: -3 [...] 25MCG 1 ORAL daily; Durati on: -3 [facility] 06/10/2014 Active ZyrTEC Allergy 10MG 1 [...] 50MG 1 ORAL at bedtime; Duration: -3 [facility] 06/10/2014 Active Meclizine HCl 25 MG 1 tablet as needed Orally [facility] 06/10/2014 Active Albuterol Sulfate (2.5 MG/3ML)0.083% Inhalation 4 x a day prn 06/10/2014 Active Valium 5MG 1 tablet as needed O RAL at bedtime, 1/2 tab prn during the day [facility] 06/10/2014 Active Social History Tobacco Use: [...] Status Risk Notes Problem Postmenopausal atrophic vaginitis (19444550) Postmenopausal atrophic vaginitis (N95.2) Active confirmed Problem Age-related osteoporosis (513466719) Age-related osteoporosis without current pathological fracture (M81.0) Active confirmed Problem Urgent desire to urinate (47805674) Urgency of urination (R39.15) Active confirmed Problem 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 Problem Chronic systolic heart failure (326332359) Chronic systolic (congestive) heart failure (I50.22) Active confirmed Problem Chronic obstructive pulmonary disease (68254136) Chronic obstructive pulmonary disease, unspecified (J44.9) Active confirmed Problem Functional urinary incontinence (754228295) Functional 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) Active confirmed Problem Personal history of primary malignant neoplasm of bronchus (774045566) 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) Active confirmed Vital Signs Temperature 97.7 degrees Fahrenheit 07/18/2024 Blood pressure diastolic 62 mm Hg 07/18/2024 Height 63 in 07/18/2024 Blood pressure systolic 102 mm Hg 07/18/2024 Weight 126 lbs 07/18/2024 BMI 22.32 kg/m2 07/18/2024 Encounters Encounter Location Date Provider Diagnosis Total [address] [address] 05/10/2024 Yenny Elizalde Abscess of vulva N76 .[address] [address] 05/17/2024 Yenny Elizalde Abscess of vulva N76 .[address] [address] 07/09/2024 Yenny Elizalde Urgency of urination R39.15 ; Acute vaginitis N76.0 and Postmenopausal atrophic vaginitis N95.[address] [address] 07/18/2024 Yenny Elizalde Encounter for screening mammogram for malignant neoplasm of breast Z12.31 and Mastodynia N64.[address] [address] 05/10/2024 Yenny Elizalde Total [facility] [address] [facility] [address] [place] [address] 05/13/2024 Yenny Elizalde Total [facility] [address] [facility] [address] [place] [address] 06/11/2024 Yenny Elizalde Assessments Encounter Date Diagnosis (ICD Code) Assessment Notes Treatment Notes Treatment Clinical Notes Section Notes 05/10/2024 Abscess of vulva (ICD-10 - N76.4) [...] Date MEDICARE [address] VEDA NIEVES [id number] CINDA WATSON Self - patient is the insured MEDEX [address] [place] [address] [id number] CINDA WATSON Self - patient is [...]
--- OUTSIDE RECORDS SUMMARY | 2025-05-06 17:35 | XMS_ITS | Encounter Summary ---
Author Organization [facility] Address [address] [place] [address] Care Team Providers Care Automobile Club Travel Counselor Name Role Phone Caitlyn Bowie MD Primary Care Provider [phone] Encounter Details Date Type Department Care Team (Late st Contact Info) Description 03/20/2023 Scanned Document [facility] Radiology [address] [place] [address] Caitlyn Bowie MD [address] [place] [address] Social History Tobacco Use Types Packs/Day Years [...] filedocumented in this encounter Care Teams Automobile Club Travel Counselor Relationship Specialty Start Date End Date Caitlyn Bowie MD [address] [place] [address] PCP - General Internal Medicine 03/20/23 documented as of this encounter
== END 2025-05-06 14:22 | disposition home or self-care (01) ==
LOC: HO.HCS 13:34
PROVIDERS: PCP Internal Medicine
DX: I50.32 Chronic diastolic (congestive) heart failure (principal); I27.20 Pulmonary hypertension, unspecified; I25.10 Atherosclerotic heart disease of native coronary artery without angina pectoris; Z98.890 Other specified postprocedural states; Z95.818 Presence of other cardiac implants and grafts; M79.89 Other specified soft tissue disorders; Z09 Encounter for follow-up examination after completed treatment for conditions other than malignant neoplasm
CPT/HCPCS: 99214; G2211

== ENCOUNTER → 2025-05-06 13:33 | Outpatient (BNVA) | payer MEDICARE, SELFPAY | PROVIDERS: PCP Internal Medicine | DX: Z09 Encounter for follow-up examination after completed treatment for conditions other than malignant neoplasm (principal); I50.32 Chronic diastolic (congestive) heart failure; I27.20 Pulmonary hypertension, unspecified; I25.10 Atherosclerotic heart disease of native coronary artery without angina pectoris; M79.89 Other specified soft tissue disorders; Z98.890 Other specified postprocedural states; Z95.818 Presence of other cardiac implants and grafts | CPT/HCPCS: 99212 ==

== ENCOUNTER 2025-05-07 09:29 | Outpatient (AMB) | payer MEDICARE, SELFPAY ==
--- NOTE | 2025-05-07 08:05 | A.OFFPC_ITS ---
Vital Signs 05/07/25 09:36 Height 5 ft 2 in Weight 127 lb 8 oz BMI 23.3 BP 98/54 L Blood Pressure Location Lt brachial Position Sitting Respiration 16 Pulse 78 Pulse Source Pulse Oximeter Temp 97.8 F Temp Source Oral Pulse Oximetry (%) 99 Oxygen Delivery Method Nasal Cannula Oxygen Flow Rate 2 Intake Visit Reasons: reestablish care Patient Advocate Required: No Accompanied by: Self / Same As Patient Allergies morphine Allergy (Severe, Verified 05/07/25 08:06) Itching avocado (AVOCADO) Allergy (Mild, Verified 05/07/25 08:06) ITCHY THROAT, RASH azithromycin (AZITHROMYCIN) Allergy (Mild, Verified 05/07/25 08:06) ITCHY THROAT, RASH barium iodide (BARIUM IODIDE) Allergy (Mild, Verified 05/07/25 08:06) ITCHY THROAT, RASH barium sulfate Allergy (Mild, Verified 05/07/25 08:06) Itch bee pollen (BEE STINGS) Allergy (Mild, Verified 05/07/25 08:06) ITCHY THROAT, RASH ciprofloxacin (From CIPRO) Allergy (Mild, Verified 05/07/25 08:06) ITCHY THROAT, RASH clarithromycin (From BIAXIN) Allergy (Mild, Verified 05/07/25 08:06) ITCHY THROAT, RASH diatrizoate meglumine (From GASTROGRAFIN) Allergy (Mild, Verified 05/07/25 08:06) ITCHY THROAT, RASH diatrizoate sodium (From GASTROGRAFIN) Allergy (Mild, Verified 05/07/25 08:06) ITCHY THROAT, RASH diclofenac (From VOLTAREN) Allergy (Mild, Verified 05/07/25 08:06) ITCHY THROAT, RASH erythromycin base (ERYTHROMYCIN BASE) Allergy (Mild, Verified 05/07/25 08:06) ITCHY THROAT, RASH gentamicin (GENTAMICIN) Allergy (Mild, Verified 05/07/25 08:06) ITCHY THROAT, RASH Iodinated Contrast Media (IVP DYE) Allergy (Mild, Verified 05/07/25 08:06) ITCHY THROAT, RASH levofloxacin (From LEVAQUIN) Allergy (Mild, Verified 05/07/25 08:06) ITCHY THROAT, RASH metronidazole (From FLAGYL) Allergy (Mild, Verified 05/07/25 08:06) ITCHY THROAT, RASH moxifloxacin (From AVELOX) Allergy (Mild, Verified 05/07/25 08:06) ITCHY THROAT, RASH Penicillins (PENICILLINS) Allergy (Mild, Verified 05/07/25 08:06) ITCHY THROAT, RASH shrimp (SHRIMP) Allergy (Mild, Verified 05/07/25 08:06) ITCHY THROAT, RASH Sulfa (Sulfonamide Antibiotics) (SULFA (SULFONAMIDE ANTIBIOTICS)) Allergy (Mild, Verified 05/07/25 08:06) ITCHY THROAT, RASH vancomycin (VANCOMYCIN) Allergy (Mild, Verified 05/07/25 08:06) ITCHY THROAT, RASH clindamycin Adverse Reaction (Intermediate, Verified 05/07/25 08:06) Unknown spironolactone Adverse Reaction (Intermediate, Verified 05/07/25 10:00) diarrhea Medication List - Last Reconciled 05/07/25 by Caitlyn Bowie MD Advair HFA 230-21 mcg/actuation (fluticasone propion-salmeterol) 2 puffs inhalation BID 90 days NS albuterol sulfate 90 mcg/actuation 2 inhalations inhalation Q6H PRN 90 days ascorbic acid (vitamin C) 250 mg PO DAILY calcium carbonate (Antacid Ext Str (calcium carb)) 2.5 tabs PO Q4H PRN cetirizine (Zyrtec) 10 mg PO DAILY CPAP (CPAP Machine/Device) As directed cyanocobalamin (vitamin B-12) (Vitamin B-12) 50 mcg PO DAILY diazepam 2.5 mg PO BID PRN docusate sodium 100 mg PO BID empagliflozin (Jardiance) 10 mg PO DAILY epinephrine 0.3 mg IM USEASDIRECTD PRN ferrous gluconate 324 mg PO DAILY fluticasone propionate 50 mcg/actuation 2 sprays intranasal DAILY 90 days folic acid 1 mg PO DAILY furosemide 80 mg (2 x 40 mg) PO BID levothyroxine (Synthroid) 25 mcg PO MOTUWETHFR@0600 levothyroxine (Synthroid) 50 mcg PO SUSA@0600 meclizine 25 mg PO Q8H PRN 10 days metoprolol succinate ER (Toprol XL) 50 mg PO BID montelukast 10 mg PO DAILY nebulizers As directed Oxygen Home Use As directed potassium chloride 20 mEq PO DAILY 90 days prednisone 2.5 mg PO Q OTHER DAY riboflavin (vitamin B2) 25 mg PO DAILY rosuvastatin 10 mg PO MOWEFR@2100 simethicone (Gas Relief (simethicone)) 80 mg PO QIDWMHS PRN trazodone 100 mg (2 x 50 mg) PO BEDTIME warfarin (Jantoven) 1mg tablet, take 1 - 3 tabs daily depending on clinic instructions and INR checks zinc 50 mg PO DAILY Tobacco use date assessed: 05/07/25 Fall risk assessment: No Falls in past year Last assessed Fall Risk: 05/07/25 Dental Screening Dental Screen Date: 05/07/25 Did you have a dental visit in the last 12 months?: Yes Did you have a dental problem in the last 6 months where you did not have access to dental care?: No Was dental information given to patient?: Patient has dentist HPI HPI Comments History of Present Illness Details The patient is an 80-year-old female presenting to reestablcritical access hospital care with concerns about recent hospitalizations and health management. Chronic Diastolic Congestive Heart Failure: Hospitalized recently for 3.5 days. Has seen coagulation operator. Medicinal regimen included spironolactone but led to severe diarrhea so she stopped it, now rxed jardiance by cardiology. Has not started it yet. COPD- managed by pulmonology Chronic respiratory failure- on 2.5LNC oxygen Incontinence: Ongoing urinary incontinence with urgency issues. Sleep Apnea: Severe case diagnosed earlier; established with pulmonology Had telemedicine appt with social media sr strategy manager Dr. Mills at [facility]. On oong term coumadin for antiphospholipid syndrome. Goes to [facility]. Also sees Dr. Hogan sometimes. Family History: - Maternal grandmother bled to dur ing childbirth. - Maternal history of hemorrhage during childbirth and ruptured aneurysm. Review of Systems - Cardiovascular: Reports fatigue and sh ortness of breath related to congestive heart failure. - Genitourinary: Reports episodes of inc ontinence and urinary urgency. - Gastrointestinal: Reports severe diarr hea post spironolactone administration. - Respiratory: Severe sleep apnea report ed. - Psychiatric: episodes of anxiety relat ed to chronic conditions Physical Exam General: NAD Chest: CTABL. Card: normal s1, s2, soft murmur across precordium Abd: SNTND, +BS Extremities: trace edema bilaterally Neuro: AOX3 Assessment and Plan 1. Congestive Heart Failure - Follow up with cardiology - Spironolactone discontinued. 2. Urinary Incontinence Urology consult. 3. Sleep Apnea - Continue monitoring. - Sleep study evaluation ordered by pulm onology. 4. Possible Vitamin B12 Deficiency - Order MMA, B12 labs. Discussion Notes During the consultation, I discussed the patient's recent hospitalization due to congestive heart failure, addressing the risk factors and potential influence of her medication regimen, notably spironolactone, which caused severe diarrhea. The issue of incontinence raised the need for a urology consultation, possibly awaiting input from a specialized female urologist. Follow up in 3 months Patient Instructions - Take Jardiance with meals - Monitor for signs of low blood sugar. - Ensure that additional labs for B12 ar e done as instructed. - Follow up with urologist - Attend sleep study as scheduled to nic antonio. - Contact office for any concerns or wor sening symptoms. [facility] Medical History (Updated 05/07/25 @ 11:40 by Caitlyn Bowie MD) Anti-phospholipid antibody syndrome Chest pain Chest pain Ankle pain Chronic hypercapnic respiratory failure KANDY treated with BiPAP COPD (chronic obstructive pulmonary disease) Open wound Warfarin anticoagulation Complex sleep apnea syndrome Leg pain Anemia Tachycardia DVT (deep venous thrombosis) Compression fracture of body of thoracic vertebra ASD (atrial septal defect) Pleuritic chest pain History of COVID-19 Chronic anticoagulation Hypothyroidism GERD (gastroesophageal reflux disease) Hyperlipidemia Hypertension Factor 5 Leiden mutation, heterozygous History of non-ST elevation myocardial infarction (NSTEMI) Hypoxia Anxiety PTSD (post-traumatic stress disorder) Hemoptysis Dyspnea Tracheobronchitis CLARA positive Diverticulitis Allergic bronchitis (HFpEF) heart failure with preserved ejection fraction Subarachnoid bleed Insomnia Hypogammaglobulinemia Chronic respiratory failure Arterial insufficiency of lower extremity Complex regional pain syndrome i of right lower limb Post herpetic neuralgia Pulmonary hypertension Pericardial effusion Pulmonary emboli Pleural effusion Radiation fibrosis of lung Pneumonitis Pulmonary nodules Lung cancer Surgical History History of colonoscopy History of lung surgery History of tonsillectomy History of hysterectomy S/P mitral valve clip implantation History of cardiac cath Family History Sister No problems noted. Mother Cardiovascular disease Daughter Tachycardia Other KANDY (obstructive sleep apnea) Social History Household Members: None Housing: House Do you presently have visiting nurse or other home services: No Alcohol intake: never Comment: stand by assist with ambulation Patient Tobacco Use Status: Never used Tobacco e-Cigarette/Vaping Use: Never Used Second Hand Smoke Exposure: No Advance Directives Date on File: 06/15/22 service: No Current occupational status: retired Questionnaire Thrive Questionnaire Date Thrive assessed: 04/23/25 AUDIT C Alcohol Use Questionnaire (AUDIT-C) 1. How often do you have a drink containing alcohol?: Never 3. How often do you have six or more drinks on one occasion?: Never Total Score: 0 Physical exam (Primary Care) Vital Signs: Last Vital Signs Temp 97.8 F 05/07/25 09:36 Pulse 78 05/07/25 09:36 Resp 16 05/07/25 09:36 BP 98/54 L 05/07/25 09:36 Pulse Ox 99 05/07/25 09:36 Oxygen Delivery Method Nasal Cannula 05/07/25 09:36 Oxygen Flow Rate 2 05/07/25 09:36 BMI result Body Mass Index 23.3 Tobacco/Smoking Status: Tobacco use Status Tobacco use date assessed 05/07/25 05/07/25 08:06 Patient Tobacco Use Status Never used Tobacco 05/07/25 08:06 e-Cigarette/Vaping Use Never Used 05/07/25 09:49 Thrive Assessment: Date of Thrive Assessment Date Thrive assessed 04/23/25 05/07/25 08:06 Coding Level of Care Code Est Pt Level 4 (41998) Complex EM visit Add On G2211 Diagnoses Chronic heart failure with preserved ejection fraction I50.32 Heart failure chronicity: chronic Chronic diastolic congestive heart failure I50.32 Heart failure chronicity: chronic Chronic anticoagulation Z79.01 Anemia D64.9 COPD (chronic obstructive pulmonary disease) J44.9 COPD type: chronic bronchitis Chronic hypercapnic respiratory failure J96.12 KANDY (obstructive sleep apnea) G47.33 Assessment & Plan Assessment & Plan (1) (HFpEF) heart failure with preserved ejection fraction: Code(s): I50.30 - Unspecified diastolic (congestive) heart failure Category: Medical Qualifiers: Heart failure chronicity: chronic Qualified Code(s): I50.32 - Chronic diastolic (congestive) heart failure (2) Diastolic CHF: Code(s): I50.30 - Unspecified diastolic (congestive) heart failure Category: Medical Qualifiers: Heart failure chronicity: chronic Qualified Code(s): I50.32 - Chronic diastolic (congestive) heart failure (3) Chronic anticoagulation: Comment: (Chornic Warfarin - hx PE & DVT) Code(s): Z79.01 - residential (current) use of anticoagulants Category: Medical (4) Anemia: Code(s): D64.9 - Anemia, unspecified Category: Medical (5) COPD (chronic obstructive pulmonary disease): Code(s): J44.9 - Chronic obstructive pulmonary disease, unspecified Category: Medical Qualifiers: COPD type: chronic bronchitis (6) Chronic hypercapnic respiratory failure: Code(s): J96.12 - Chronic respiratory failure with hypercapnia Category: Medical (7) KANDY (obstructive sleep apnea): Code(s): G47.33 - Obstructive sleep apnea (adult) (pediatric) Category: Medical Plan Plan - Review and adjust heart failure meds. - Start Jardiance with renal monitoring. - Emphasize food intake to mitigate hypoglycemia. - Follow up with urology - Continue sleep apnea review and management. - Discontinue spironolactone, discuss alternatives. - Order labs: MMA, B12, folic acid tests. Orders: Orders Methylmalonic Acid Today D64.9 - Anemia, unspecified Vitamin B12 Today D64.9 - Anemia, unspecified Folate Today D64.9 - Anemia, unspecified Referrals Urology Referral R32 - Unspecified urinary incontinence
[2025-05-07 09:36] VITALS: BP 98/54; PULSE 78; RESP 16; TEMP 36.6; O2SAT 99; BMI 23.3
--- OUTSIDE RECORDS SUMMARY | 2025-05-07 11:16 | XMS_ITS | Encounter Summary ---
Author Organization [facility] Address [address] [place] [address] Care Team Providers Care Steward/Stewardess Bath Name Role Phone Caitlyn Bowie MD Primary Care Provider [phone]- [phone] Encounter Details Date Type Department Care Team (Late st Contact Info) Description 03/14/2025 Scanned Document [facility] Neurology Ophthalmology [address] [place] [address] Shirley Chaidez PA-C [address] [address] Social History Tobacco Use Types Packs/Day Years [...] on filedocumented in this encounter Care Teams Steward/Stewardess Bath Relationship Specialty Start Date End Date Caitlyn Bowie MD [address] [place] [address] PCP - General Internal Medicine 03/20/23 documented as of this encounter
--- OUTSIDE RECORDS SUMMARY | 2025-05-07 11:16 | XMS_ITS | Encounter Summary ---
Author Organization [facility] Address [address] [place] [address] Care Team Providers Care Furnace Maintenance Name Role Phone Pcp, No Primary Care Provider Brennan Mario MD Primary Care Provider [phone] Caitlyn Bowie MD Primary Care Provider [phone]- [phone] Encounter Details Date Type Department Care Team (Late st Contact Info) Description 01/04/2022 Scanned Document [facility] Neurology Ophthalmology [address] [address] Yary Whitten DO [address] [place] [address] Social History Tobacco Use Types Packs/Day [...] on filedocumented in this encounter Care Teams Furnace Maintenance Relationship Specialty Start Date End Date Pcp, No PCP - General General Medicine 10/04/21 07/18/22 Brennan Burnett MD [address] [place] [address] PCP - General 07/19/22 03/19/23 Caitlyn Bowie MD [address] [place] [address] PCP - General Internal Medicine 03/20/23 documented as of this encounter
--- OUTSIDE RECORDS SUMMARY | 2025-05-07 11:16 | XMS_ITS | Encounter Summary ---
Author Organization [facility] Address [address] [place] [address] Phone Care Team Providers Care Youth Counselor Name Role Phone Caitlyn Bowie MD Primary Care Provider [phone] Encounter Details Date Type Department Care Team (Late Contact Info) Description 03/24/2025 Documentation Only [facility] [address] [place] [address] Marina Abdi [address] [place] [address] Social History Tobacco Use [...] Visit [facility] [address] [place] [address] Rubén Ashraf MD [address] [place] [address] [place] [address] documented as of this encounter Visit Diagnoses Not on filedocumented in this encounter Care Teams Youth Counselor Relationship Specialty Start Date End Date Caitlyn Bowie MD [address] [place], [place] PCP - General Internal Medicine 09/24/24 documented as of this encounter
--- OUTSIDE RECORDS SUMMARY | 2025-05-07 11:16 | XMS_ITS | Clinical Summary ---
Author Organization [facility] Address [address] [place] [address] Care Team Providers Care Digital Imager Name Role Phone Caitlyn Bowie Primary Care Provider [phone] Allergies Active Allergy Reactions Criticality Noted Date [...] Throat tightness Throat tightness Throat tightness Ipratropium [place] Unknown Medium 12/18/2021 Isosorbide Mononitrate 11/23/2020 Other [...] [facility] Care Teams Digital Imager Relationship Specialty Start Date End Date Caitlyn Bowie [address] [place] [address] PCP - General Internal Medicine 07/18/22
--- OUTSIDE RECORDS SUMMARY | 2025-05-07 11:16 | XMS_ITS | Encounter Summary ---
Author Organization [facility] Address [address] [place] [address] Phone Care Team Providers Care Supervisor Customer Records Division Name Role Phone Caitlyn Bowie MD Primary Care Provider [phone] Encounter Details Date Type Department Care Team (Late Contact Info) Description 12/12/2024 Documentation Only [facility] [address] [place] [address] Marina Abdi [address] [place] [address] Social History Tobacco Use [...] [facility] [address] [place] [address] Rubén Ashraf MD [address] [place] [address] [place] [address] documented as of this encounter Visit Diagnoses Not on filedocumented in this encounter Care Teams Supervisor Customer Records Division Relationship Specialty Start Date End Date Caitlyn Bowie MD [address] [place], [place] PCP - General Internal Medicine 09/24/24 documented as of this encounter
--- OUTSIDE RECORDS SUMMARY | 2025-05-07 11:16 | XMS_ITS | Clinical Summary ---
Author Organization [facility] Address [address] [place] [address] Care Team Providers Care Spray Painting Machine Operator Name Role Phone Caitlyn Bowie MD Primary Care Provider [phone] Allergies Active Allergy Reactions Criticality Noted Date [...] Breath High 05/09/2008 Bronchospasm or Wheezing Ipratropium [place] Unknown/Patient and Family Unable to Define Medium [...] 1 capsule by mouth daily. Active B Egsnehy-H-Uueql Acid (STRESS 500 B-COMPLEX PO) Take 1 [...] Type Department Care Team Description 04/08/2025 Telephone [facility] Neurology Ophthalmology [address] [address] Yary Whitten DO Medical Complaint 03/14/2025 Scanned Document [facility] Neurology Ophthalmology [address] [place] [phone] Shirley Chaidez PA-C 03/11/2025 Telephone [facility] Neurology Ophthalmology [address] [address] Yary Whitten DO Medical Complaint from Last [...] MEDICARE PART A & B [facility] Care Teams Spray Painting Machine Operator Relationship Specialty Start Date End Date Caitlyn Bowie MD [address] [place] [address] PCP - General Internal Medicine 03/20/23
--- OUTSIDE RECORDS SUMMARY | 2025-05-07 11:16 | XMS_ITS | Encounter Summary ---
Author Organization [facility] Address [address] [place] [address] Phone Care Team Providers Care Finishing Tunnel Operator Name Role Phone Caitlyn Bowie MD Primary Care Provider +1- [phone] Encounter Details Date Type Department Care Team (Late Contact Info) Description 03/17/2025 Documentation Only [facility] [address] [place] [place] [address] Marina Abdi [address] [place] [address] Social History Tobacco Use Types [...] [facility] [address] [place] [place] [address] Rubén Ashraf MD [address] [place] [address] [place] [address] documented as of this encounter Visit Diagnoses Not on filedocumented in this encounter Care Teams Finishing Tunnel Operator Relationship Specialty Start Date End Date Caitlyn Bowie MD [address] [place], [place] PCP - General Internal Medicine 09/24/24 documented as of this encounter
--- OUTSIDE RECORDS SUMMARY | 2025-05-07 11:16 | XMS_ITS | Clinical Summary ---
Author Organization [facility] Address [address] [place] [address] Care Team Providers Care Armature Bander Name Role Phone Brennan Burnett MD Primary Care Provider [phone] Allergies Active Allergy Reactions Criticality Noted Date [...] age to complete this topic Care Teams Armature Bander Relationship Specialty Start Date End Date Brennan uBrnett MD [address] [place] [address] PCP - General Internal Medicine 07/06/20
--- OUTSIDE RECORDS SUMMARY | 2025-05-07 11:16 | XMS_ITS | Encounter Summary ---
Author Organization [facility] Address [address] [place] [address] Phone Care Team Providers Care Fitness Consultant Name Role Phone Caitlyn Bowie MD Primary Care Provider +1- [phone] Encounter Details Date Type Department Care Team (Late Contact Info) Description 12/12/2024 Documentation Only [facility] [address] [place] [address] Marina Abdi [address] [place] [address] Social History Tobacco Use Types [...] [facility] [address] [place] [address] Rubén Ashraf MD [address] [place] [address] [place] [address] documented as of this encounter Visit Diagnoses Not on filedocumented in this encounter Care Teams Fitness Consultant Relationship Specialty Start Date End Date Caitlyn Bowie MD [address] [place], [place] PCP - General Internal Medicine 09/24/24 documented as of this encounter
--- OUTSIDE RECORDS SUMMARY | 2025-05-07 11:16 | XMS_ITS | Clinical Summary ---
Author Organization [facility] [place], Address [address] [place] [address] [place] [address] Phone Care Team Providers Care Director Diabetes Name Role Phone Caitlyn Bowie MD Primary Care Provider +1- [phone] Allergies Active Allergy Reactions Criticality Noted Date [...] [facility] [address] [place] [address] Marina Abdi 03/17/2025 Documentation Only [facility] [address] [place] [address] Marina Abdi 03/17/2025 Orders Only [facility] [address] [place] [address] Marina Abdi Smells of urine (Primary [...] Visit [facility] [address] [place] [address] Rubén Ashraf MD [address] [facility] [place] [address] Health Maintenance Due Date Last Done Comments Influenza Vaccine (#1) 2025 0, 04/22/2019, 04/18/2016 Pneumococcal Vaccine: 50+ Years Completed 08/31/2021, 03/25/2016, 09/17/2015, Additional history exists Hepatitis B Vaccine Aged Out No longe r eligible based on patient's age to complete this topic Insurance Medicare [facility] Care Teams Director Diabetes Relationship Specialty Start Date End Date Caitlyn Bowie MD [address] [place], [place] PCP - General Internal Medicine 09/24/24
--- OUTSIDE RECORDS SUMMARY | 2025-05-07 11:16 | XMS_ITS | Patient Health Record ---
Author Organization [facility] Address [address] [place] [address] Care Team Providers Care Engine Lathe Set Up Operator Tool Name Role Phone Shruti Bowieberly Primary Care Provider Cristian Fountain Unavailable [phone] Allergies Allergen (clinical drug ingredient) Drug/Non Drug [...] Status W/U Status Risk Notes Problem Diverticulitis (30538515) Diverticulitis (K57.92) Active confirmed Problem Irritable bowel syndrome characterized by constipation (916084554) Irritable bowel syndrome with constipation (K58.9) Active confirmed Problem Gastroesophageal reflux disease (115096255) GERD (gastroesophageal reflux disease) (K21.9) Active confirmed Plan Of Treatment No Information Insurance Providers Payer Name Payer Address Payer Phone Subscriber Number Group Number Insured Name Patient Relationship to Insured Coverage Start Date Coverage End Date MEDICARE OF [place] [address] [place] [address] [id number] DANIEL WATSONE Self - patient is the insured MED[employer] ATTN CLAIMS [address] [place] [address] [id number] DANIEL WATSONE Self - patient is the insured Medical (General) History Medical History History ICD Code TN-04/2021-sees Dr. Cadet--describes a negative cardiac cath Lung [...] a nd Antiphospholipid antibody--has had DVT's and PE's---Proof Technician Helper at [place] and [facility] Hogan at [facility]-has had EGD's with Dr. Gomes Pneumomias Hypothyroidism Surgical History Surgery Date(Month/Year) Tonsils and adenoids BOLA Lung cancer-Left lower lobectomy at [facility], XRT, Chemo 2008
--- OUTSIDE RECORDS SUMMARY | 2025-05-07 11:17 | XMS_ITS | Encounter Summary ---
Author Organization [facility] Address [address] [place] [address] Phone Care Team Providers Care Basting Machine Operator Name Role Phone Caitlyn Bowie MD Primary Care Provider [phone]- [phone] Encounter Details Date Type Department Care Team (Late st Contact Info) Description 10/01/2024 Documentation Only [facility] [address] [place] [address] Ron [place] [address] [place] [address] Social History Tobacco Use Types [...] Visit [facility] [address] [place] [address] Rubén Ashraf MD [address] [place] [address] Dr. [place] [address] documented as of this encounter Visit Diagnoses Not on filedocumented in this encounter Care Teams Basting Machine Operator Relationship Specialty Start Date End Date Caitlyn Bowie MD [address] [place], [place] PCP - General Internal Medicine 09/24/24 documented as of this encounter
--- OUTSIDE RECORDS SUMMARY | 2025-05-07 11:17 | XMS_ITS | Encounter Summary ---
Author Organization [facility] Address [address] [place] [address] Phone Care Team Providers Care Balance Staff Staker Name Role Phone Caitlyn Bowie MD Primary Care Provider [phone]- [phone] Encounter Details Date Type Department Care Team (Late Contact Info) Description 12/10/2024 Documentation Only [facility] [address] [place] [address] Marina Abdi [address] [place] [address] Social History Tobacco Use Types [...] [facility] [address] [place] [address] Rubén Ashraf MD [address] [place] [address] [place] [address] documented as of this encounter Visit Diagnoses Not on filedocumented in this encounter Care Teams Balance Staff Staker Relationship Specialty Start Date End Date Caitlyn Bowie MD [address] [place], [place] PCP - General Internal Medicine 09/24/24 documented as of this encounter
--- OUTSIDE RECORDS SUMMARY | 2025-05-07 11:17 | XMS_ITS | Encounter Summary ---
Author Organization [facility] Address [address] [place] [address] Phone Care Team Providers Care Scrap Bunch Maker Name Role Phone Caitlyn Bowie MD Primary Care Provider [phone]- [phone] Encounter Details Date Type Department Care Team (Late Contact Info) Description 12/10/2024 Documentation Only [facility] [address] [place] [address] Marina Abdi [address] [place] [address] Social History Tobacco Use Types [...] [facility] [address] [place] [address] Rubén Ashraf MD [address] [place] [address] [place] [address] documented as of this encounter Visit Diagnoses Not on filedocumented in this encounter Care Teams Scrap Bunch Maker Relationship Specialty Start Date End Date Caitlyn Bowie MD [address] [place], [place] PCP - General Internal Medicine 09/24/24 documented as of this encounter
--- OUTSIDE RECORDS SUMMARY | 2025-05-07 11:17 | XMS_ITS | Encounter Summary ---
Author Organization [facility] Address [address] [place] [address] Care Team Providers Care Driver Merchandiser Name Role Phone Pcp, No Primary Care Provider Brennan Mario MD Primary Care Provider [phone] Caitlyn Bowie MD Primary Care Provider [phone]- [phone] Encounter Details Date Type Department Care Team (Late st Contact Info) Description 01/04/2022 Scanned Document [facility] Neurology Ophthalmology [address] [address] Yary Whitten DO [address] [place] [address] Social History Tobacco Use Types Packs/Day [...] on filedocumented in this encounter Care Teams Driver Merchandiser Relationship Specialty Start Date End Date Pcp, No PCP - General General Medicine 10/04/21 07/18/22 Brennan Burnett MD [address] [place] [address] PCP - General 07/19/22 03/19/23 Caitlyn Bowie MD [address] [place] [address] PCP - General Internal Medicine 03/20/23 documented as of this encounter
--- OUTSIDE RECORDS SUMMARY | 2025-05-07 11:17 | XMS_ITS | Encounter Summary ---
Author Organization [facility] Address [address] [place] [address] Phone Care Team Providers Care Bagging Machine Operator Name Role Phone Caitlyn Bowie MD Primary Care Provider +1- [phone] Encounter Details Date Type Department Care Team (Late st Contact Info) Description 10/10/2024 Documentation Only [facility] [address] [place] [address] Ron Taylor [place] [address] [place] [address] Social History Tobacco Use Types [...] Visit [facility] [address] [place] [address] Rubén Ashraf MD [address] [place] [address] [place] [address] documented as of this encounter Visit Diagnoses Not on filedocumented in this encounter Care Teams Bagging Machine Operator Relationship Specialty Start Date End Date Caitlyn Bowie MD [address] [place], [place] PCP - General Internal Medicine 09/24/24 documented as of this encounter
--- OUTSIDE RECORDS SUMMARY | 2025-05-07 11:17 | XMS_ITS | Encounter Summary ---
Author Organization [facility] Address [address] [place] [address] Phone Care Team Providers Care Senior Major Gifts Officer Name Role Phone Caitlyn Bowie MD Primary Care Provider +1- [phone] Encounter Details Date Type Department Care Team (Late Contact Info) Description 12/10/2024 Documentation Only [facility] [address] [place] [address] Marina Abdi [address] [place] [address] Social History Tobacco Use Types [...] [facility] [address] [place] [address] Rubén Ashraf MD [address] [place] [address] [place] [address] documented as of this encounter Visit Diagnoses Not on filedocumented in this encounter Care Teams Senior Major Gifts Officer Relationship Specialty Start Date End Date Caitlyn Bowie MD [address] [place], [place] PCP - General Internal Medicine 09/24/24 documented as of this encounter
--- OUTSIDE RECORDS SUMMARY | 2025-05-07 11:17 | XMS_ITS | Encounter Summary ---
Author Organization [facility] Address [address] [place] [address] Phone Care Team Providers Care Broom Machine Operator Name Role Phone Caitlyn Bowie MD Primary Care Provider [phone]- [phone] Encounter Details Date Type Department Care Team (Late Contact Info) Description 12/10/2024 Documentation Only [facility] [address] [place] [address] Marina Abdi [address] [place] [address] Social History Tobacco Use Types [...] [facility] [address] [place] [address] Rubén Ashraf MD [address] [place] [address] [place] [address] documented as of this encounter Visit Diagnoses Not on filedocumented in this encounter Care Teams Broom Machine Operator Relationship Specialty Start Date End Date Caitlyn Bowie MD [address] [place], [place] PCP - General Internal Medicine 09/24/24 documented as of this encounter
--- OUTSIDE RECORDS SUMMARY | 2025-05-07 11:17 | XMS_ITS | Encounter Summary ---
Author Organization [facility] Address [address] [place] [address] Care Team Providers Care Title Lawyer Name Role Phone Caitlyn Bowie MD Primary Care Provider +1- [phone] Encounter Details Date Type Department Care Team (Late st Contact Info) Description 03/20/2023 Scanned Document [facility] Radiology [address] [place] [address] Caitlyn Bowie MD [address] [place] [address] Social History Tobacco Use Types Packs/Day Years [...] on filedocumented in this encounter Care Teams Title Lawyer Relationship Specialty Start Date End Date Caitlyn Bowie MD [address] [place] [address] PCP - General Internal Medicine 03/20/23 documented as of this encounter
--- OUTSIDE RECORDS SUMMARY | 2025-05-07 11:17 | XMS_ITS | Encounter Summary ---
Author Organization [facility] Address [address] [place] [address] Phone Care Team Providers Care Technology Integration Specialist Name Role Phone Caitlyn Bowie MD Primary Care Provider [phone]- [phone] Encounter Details Date Type Department Care Team (Late Contact Info) Description 12/10/2024 Documentation Only [facility] [address] [place] [address] Marina Abdi [address] [place] [address] Social History Tobacco Use [...] [facility] [address] [place] [address] Rubén Ashraf MD [address] [place] [address] [place] [address] documented as of this encounter Visit Diagnoses Not on filedocumented in this encounter Care Teams Technology Integration Specialist Relationship Specialty Start Date End Date Caitlyn Bowie MD [address] [place], [place] PCP - General Internal Medicine 09/24/24 documented as of this encounter
--- OUTSIDE RECORDS SUMMARY | 2025-05-07 11:17 | XMS_ITS | Patient Health Record ---
Author Organization [facility] Address [address] [facility] [address] [place] [address] Care Team Providers Care Manager Port Name Role Phone EVELIN RAMSAY Primary Care Provider Yenny Hou Unavailable [phone] Allergies Allergen (clinical drug ingredient) Drug/Non Drug [...] 25MCG 1 ORAL daily; Durati on: -3 [facility] 06/10/2014 Active ZyrTEC Allergy 10MG 1 [...] 50MG 1 ORAL at bedtime; Duration: -3 [facility] 06/10/2014 Active Meclizine HCl 25 MG 1 tablet as needed Orally [facility] 06/10/2014 Active Albuterol Sulfate (2.5 MG/3ML)0.083% Inhalation 4 x a day prn 06/10/2014 Active Valium 5MG 1 tablet as needed O RAL at bedtime, 1/2 tab prn during the day [facility] 06/10/2014 Active Social History Tobacco Use: [...] Status Risk Notes Problem Postmenopausal atrophic vaginitis (08158690) Postmenopausal atrophic vaginitis (N95.2) Active confirmed Problem Age-related osteoporosis (713716976) Age-related osteoporosis without current pathological fracture (M81.0) Active confirmed Problem Urgent desire to urinate (53449711) Urgency of urination (R39.15) Active confirmed Problem 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 Problem Chronic systolic heart failure (993741689) Chronic systolic (congestive) heart failure (I50.22) Active confirmed Problem Chronic obstructive pulmonary disease (82818195) Chronic obstructive pulmonary disease, unspecified (J44.9) Active confirmed Problem Functional urinary incontinence (766713222) Functional 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) Active confirmed Problem Personal history of primary malignant neoplasm of bronchus (355849497) 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) Active confirmed Vital Signs Temperature 97.7 degrees Fahrenheit 07/18/2024 Blood pressure diastolic 62 mm Hg 07/18/2024 Height 63 in 07/18/2024 Blood pressure systolic 102 mm Hg 07/18/2024 Weight 126 lbs 07/18/2024 BMI 22.32 kg/m2 07/18/2024 Encounters Encounter Location Date Provider Diagnosis Total [address] [address] 05/10/2024 Yenny Elizalde Abscess of vulva N76 .[address] [address] 05/17/2024 Yenny Elizalde Abscess of vulva N76 .[address] [address] 07/09/2024 Yenny Elizalde Urgency of urination R39.15 ; Acute vaginitis N76.0 and Postmenopausal atrophic vaginitis N95.[address] [address] 07/18/2024 Yenny Elizalde Encounter for screening mammogram for malignant neoplasm of breast Z12.31 and Mastodynia N64.[address] [address] 05/10/2024 Yenny Elizalde Total [facility] [address] [facility] [address] [place] [address] 05/13/2024 Yenny Elizalde Total [facility] [address] [facility] [address] [place] [address] 06/11/2024 Yenny Elizalde Assessments Encounter Date Diagnosis [...] Date MEDICARE [address] [place]EVES [id number] CINDA WATSON Self - patient is the insured MEDEX [address] [place] [address] [id number] CINDA WATSON Self - patient is [...]
--- OUTSIDE RECORDS SUMMARY | 2025-05-07 11:17 | XMS_ITS | Clinical Summary ---
Author Organization 175 [facility] Address [address] [place] [address] Phone Care Team Providers Care Farrowing Worker Name Role Phone Caitlyn Bowie MD Primary Care Provider [phone]- [phone] Allergies Active Allergy Reactions Criticality Noted Date [...] 20 mg as needed by her previous bottle and glass inspector which she has taken sporadically. I have asked her to take this daily to see if this improves her symptoms and she has a follow-up appointment with Dr. Shah on September 16 which she will keep. We also had a long conversation regarding the fact that she is seeing 3 different bottle and glass inspector for the same problems. We informed her [...] continues to see Dr. Avalos or her bottle and glass inspector at [facility]. She verbalized understanding of this and [...] antibody syndrome (CMS/HCC V24) 12/24/2018 Adrenal insufficiency ([facility] V24) 08/23/2018 Allergic rhinitis 08/23/2018 Hyperparathyroidism ([facility] V24) 08/23/2018 MRSA infection 08/23/2018 Overview (05/16/2024): 06/2009, s/p thoracotomy infection Osteoarthritis 08/23/2018 Radiation-induced pulmonary fibrosis ([facility] V2 4) 11/13/2017 Bronchiectasis ([facility] V24, [facility] V28) 2017 Leg edema 08/08/2017 Restrictive lung disease 08/08/2017 Chronic obstructive pulmonar y disease ([facility] V24, [facility] V28) 04/13/2017 Fibromyalgia 04/13/2017 Congestive heart failure ([facility] V24, [facility] V 28) 04/04/2017 Heterozygous factor V Leiden mutation ([facility] V 24) 04/04/2017 Obstructive sleep apnea syndrome 04/04/2017 Overview (05/16/2024): CPAP Pleural effusion 04/04/2017 Pulmonary hypertension ([facility] V24, [facility] V28 ) 04/04/2017 Multiple pulmonary nodules 03/17/2017 [...] Team Description 04/14/2025 10:00 AM EDT Evaluation [address] [phone] Bruno Moreno, PT Gait abnormality (Primary Dx); Cerebral lesion 04/14/2025 Plan of Care Documentation [facility] 175 [facility] [address] [place] [phone] 04/11/2025 Telephone Gastroenterology - [address] [place] [phone] Tim Gomes MD 03/20/2025 11:40 AM EDT Office Visit [facility] 175 [facility] [address] [place] [phone] Ayanna Jaffe MD Optic neuritis (Primary Dx); White matter lesion of central nervous system; Blurry vision 02/24/2025 Telephone Gastroenterology - 299 [facility] 299 [facility] [address] [place] [phone] Tim Gomes MD 02/23/2025 11:40 AM EDT - 02/23/2025 4:22 PM EDT Emergency [facility] [address] [place] [phone] Celia Snider DO Diverticulitis (Primary Dx) Discharge Disposition: Home or Self Care 02/21/2025 4:30 PM EDT Office Visit [address] [phone] Shirley Chaidez PA Optic neuritis (Primary Dx) [...] Chronic obstructive pulmonar y disease (CMS/HCC V24, [facility] V28) 04/13/2017 DX:Chronic obstructive pulm onary disease [...] dori pect Heterozygous factor V Leiden mutation ([facility] V24) 04/04/2017 DX:Heterozygous factor V Lei den [...] DX:Postc oncussion syndrome Pulmonary hypertension ([facility] V24, [facility] V28) 04/04/2017 DX:Pulmonary hypertension (H CC) Restrictive lung disease 08/08/2017 DX:Rest rictive lung disease 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 DX:Zinc deficien cy Obstructive sleep apnea syndrome 04/04/2017 DX:Obstructive sleep apnea syndrome; COMMENT: CPAP Radiation-induced pulmonary fibrosis ([facility] V24) 11/13/2017 DX:Radiation-induced pulmona ry fibrosis (HCC) Adrenal insufficiency ([facility] V24) 08/23/2018 DX:Adrenal insufficiency (HCC) Hyperparathyroidism ([facility] V24) 08/23/2018 DX:Hyperparathyroidism (HCC) Osteoporosis 11/17/2016 DX:Osteoporosis [...] Mx LLL resection, Chemo, RT, Cisplatin, Vinorelbine [phone] Antiphospholipid antibody sy ndrome ([facility] V24) 12/24/2018 DX:Antiphospholipid antibody syndrome (HCC) 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 Hyperparathyroidism ([facility] V24) DX:Hyperparathyroidism (HCC) Adrenal insufficiency ([facility] V24) DX:Adrenal insufficiency (HCC) Family History Medical [...] Info) Description 05/12/2025 1:45 PM EST Treatment [address] [phone] Gene Marshall PTA 05/14/2025 9:45 AM EST Treatment [facility] [address] [phone] Bruno Moreno, PT [address] [place] [address] 05/19/2025 10:30 AM EST Treatment [address] [phone] Bruno Mroeno, PT [address] [place] [address] 05/21/2025 10:15 AM EST Treatment [address] [phone] Gene Marshall, HEAD SAWYER 05/26/2025 10:30 AM EST Treatment [address] [phone] Bruno Moreno, PT [address] [place] [address] 05/28/2025 1:30 PM EST Treatment [address] [phone] Gene Marshall, HEAD SAWYER 05/29/2025 3:00 PM EST Office Visit [address] [phone] Ayanna Jaffe MD [address] [place] [address] 06/02/2025 10:30 AM EST Treatment [address] [phone] Bruno Moreno, PT [address] [place] [address] 06/04/2025 10:15 AM EST Treatment [address] [phone] Bruno Moreno, PT [address] [place] [address] Health Maintenance Due Date Last Done Comments [...] 4/5 L PT LTG 16 visits from [facility] on 04/14/2025 General Bruno Kaur, PT [...] central nervous system Blurry vision NEUROMYELITIS OPTICA, [id number] Routine 03/20/2025 12:31 PM EDT Optic neuritis [...] [facility] - 03/25/2025 1:05 AM EDT Test(s) 365256-HCS Antibody, Cell-based IFA was developed and its performance characteristics determined by [facility]. It has not been cleared or approved by the Food and Drug Administration. Performed at: [address] [id number] Wildlife Biologist: Melissa Wetzel MD, Phone: [phone] Ayanna Jaffe MD LAB BLOOD ORDERABLES Fin al Result Performing Organization Address [facility] de Phone Number [facility] * Neuromyelitis optica, [id number] (03/20/2025 12:31 PM EDT) [facility] NMO IgG Autoantibodies <1.5 0.0 - 3.0 U/mL 03/24/2025 3:05 PM EDT [facility] Comment: Negative: 0.0 - 3.0 Positive: >3.0 Blood Venous blood specimen / Unknown Venipuncture / Unknown 03/20/2025 12:31 PM EDT 03/20/2025 12:31 PM EDT [facility] - 03/24/2025 3:05 PM EDT Performed at: [address] [id number] Wildlife Biologist: Melissa Wetzel MD, Phone: [phone] Ayanna Jaffe MD LAB BLOOD ORDERABLES Fin al Result Performing Organization Address [facility] de Phone Number [facility] * (ABNORMAL) CBC auto differential (03/20/2025 12:31 PM EDT) Only the most recent of2 resultswithin the time period is included. [facility] WBC 11.0(H) 4.8 - 10.8 K/mcL LAB HEMETOLOGY METHOD 03/20/2025 2:23 PM EDT [facility] RBC 3.50(L) 3.80 - 4.80 M/mcL LAB HEMETOLOGY METHOD 03/20/2025 2:23 PM EDT [facility] Hemoglobin 11.5 11.5 - 16.0 g/dL LAB HEMETOLOGY METHOD 03/20/2025 2:23 PM EDT [facility] Hematocrit 36.7 35.0 - 47.0 % LAB HEMETOLOGY METHOD 03/20/2025 2:[facility] MCV 105.2(H) 79.0 - 98.0 FL LAB HEMETOLOGY METHOD 03/20/2025 2:23 PM EDT [facility] MCH 33.0(H) 27.0 - 32.0 pcg LAB HEMETOLOGY METHOD 03/20/2025 2:23 PM [facility] MCHC 31.3(L) 32.0 - 37.0 g/dL LAB HEMETOLOGY METHOD 03/20/2025 2:23 PM [facility] RDW 14.1 11.0 - 15.0 % LAB HEMETOLOGY METHOD 03/20/2025 2:23 PM EDT [facility] Platelets 243 130 - 400 K/mcL LAB HEMETOLOGY METHOD 03/20/2025 2:23 PM [facility] MPV 11.3(H) 7.0 - 11.0 FL LAB HEMETOLOGY METHOD 03/20/2025 2:23 PM [facility] NRBC 0.2 <1.0 % LAB HEMETOLOGY METHOD 03/20/2025 2:23 PM EDT [facility] NRBC Absolute 0.02 <0.10 K/mcL LAB HEMETOLOGY METHOD 03/20/2025 2:23 PM [facility] Neutrophils Relative 75.9 % LAB HEMETOLOGY METHOD 03/20/2025 2:23 PM [facility] Lymphocytes Relative 8.7 % LAB HEMETOLOGY METHOD 03/20/2025 2:23 PM [facility] Monocytes Relative 12.2 % LAB HEMETOLOGY METHOD 03/20/2025 2:23 PM EDT [facility] Eosinophils Relative 0.7 % LAB HEMETOLOGY METHOD 03/20/2025 2:23 PM EDT [facility] Basophils Relative 0.7 % LAB HEMETOLOGY METHOD 03/20/2025 2:23 PM EDT [facility] Immature Granulocytes Relative 1.8 % LAB HEMETOLOGY METHOD 03/20/2025 2:23 PM EDT [facility] Neutrophils Absolute 8.36(H) 1.50 - 7.00 K/mcL LAB HEMETOLOGY METHOD 03/20/2025 2:23 PM EDT [facility] Lymphocytes Absolute 0.96(L) 1.00 - 5.00 K/mcL LAB HEMETOLOGY METHOD 03/20/2025 2:23 PM EDT [facility] Monocytes Absolute 1.34(H) 0.20 - 1.00 K/mcL LAB HEMETOLOGY METHOD 03/20/2025 2:23 PM EDT [facility] Eosinophils Absolute 0.08 0.00 - 0.50 K/mcL LAB HEMETOLOGY METHOD 03/20/2025 2:23 PM EDT [facility] Basophils Absolute 0.08 0.00 - 0.20 K/mcL LAB HEMETOLOGY METHOD 03/20/2025 2:23 PM EDT [facility] Immature Granulocytes Absolute 0.20(H) 0.00 - 0.03 K/mcL LAB HEMETOLOGY METHOD 03/20/2025 2:23 PM EDT [facility] Blood Venous blood specimen / Unknown Venipuncture / Unknown 03/20/2025 12:31 PM EDT 03/20/2025 12:31 PM EDT Ayanna Jaffe MD LAB BLOOD ORDERABLES Fin al Result [facility] [address] [place] [address], [place] [phone] * Sedimentation rate (03/20/2025 12:31 PM EDT) Sed Rate 25 0 - 30 mm/hr LAB HEMETOLOGY METHOD 03/20/2025 2:14 PM EDT [facility] Blood Venous blood specimen / Unknown Venipuncture / Unknown 03/20/2025 12:31 PM EDT 03/20/2025 12:31 PM EDT Ayanna Jaffe MD LAB BLOOD ORDERABLES Fin al Result Performing Organization Address [facility]/State/ZIP Co de Phone Number [facility] [address] [place] [address], [place] [phone] * ECG-Annotated (02/24/2025) Provider Onbase MD ECG ORDERABLES Final Result * CT Head wo Contrast (02/23/2025 2:53 PM EDT) Anatomical Region Laterality Modality Head and Neck Computed Tomogra phy 02/23/2025 2:57 PM EDT Impressions 02/23/2025 3:01 PM EDT Impression: No acute hemorrhage or intracranial mass effect. No significant change. Telerad PA ([id number]) -------- FINAL REPORT -------- Dictated By: Fawn Levin Dictated Date: 02/23/2025 14:57 ET Assigned Physician: Fawn Levin Reviewed and Electronically Signed By: Fawn Levin Signed Date: 02/23/2025 15:01 ET Workstation ID: [id number] Transcribed By: Self Edit Transcribed Date: 02/23/2025 [...] mass effect. No significant change. Telekarla KAPOOR ([id number]) -------- FINAL REPORT -------- Dictated By: Fawn Levin Dictated Date: 02/23/2025 14:57 ET Assigned Physician: Fawn Levin Reviewed and Electronically Signed By: Fawn Levin Signed Date: 02/23/2025 15:01 ET Workstation ID: [id number] Transcribed By: Self Edit Transcribed Date: 02/23/2025 [...] appropriate, to exclude this possibility. Telekarla KAPOOR ([id number]) -------- FINAL REPORT -------- Dictated By: Fawn Levin Dictated Date: 02/23/2025 15:01 ET Assigned Physician: Fawn Levin Reviewed and Electronically Signed By: Fawn Levin Signed Date: 02/23/2025 15:05 ET Workstation ID: [id number] Transcribed By: Self Edit Transcribed Date: 02/23/2025 15:01 ET Narrative 02/23/2025 3:05 PM EDT History: Left lower quadrant abdominal pain. Comparison: 08/23/23 Technique: Helical volumetric imaging of the abdomen and pelvis was performed without intravenous or oral contrast. DLP: 480.07 mGy/cm [employer] VCT Iterative reconstruction technique Findings: Chronic pleural-parenchymal [...] intravenous or oral contrast. DLP: 480.07 mGy/cm [employer] VCT Iterative reconstruction technique Findings: Chronic pleural-parenchymal [...] appropriate, to exclude this possibility. Telekarla KAPOOR ([id number]) -------- FINAL REPORT -------- Dictated By: Fawn Levin Dictated Date: 02/23/2025 15:01 ET Assigned Physician: Fawn Levin Reviewed and Electronically Signed By: Fawn Levin Signed Date: 02/23/2025 15:05 ET Workstation ID: [id number] Transcribed By: Self Edit Transcribed Date: 02/23/2025 15:01 ET us Afsaneh KAPOOR IMG CT PROCEDURES Final Resu lt * Lactate, with reflex (02/23/2025 2:25 PM EDT) LACTIC ACID 1.1 0.4 - 2.0 mmol/L LAB CHEMISTRY METHOD 02/23/2025 3:25 PM EDT [facility] Blood Venous blood specimen / Unknown Venipuncture / Unknown 02/23/2025 2:25 PM EDT 02/23/2025 2:35 PM EDT us Afsaneh KAPOOR LAB BLOOD ORDERABLES Final R esult Performing Organization Address City/[facility] Co de Phone Number [facility] [address] [place] [address], [place] [phone] * Blood Culture, Peripheral Draw #2 (02/23/2025 2:25 PM EDT) Only the most recent of2 resultswithin the time period is included. Pathologist [facility] Culture, Blood No growth at 5 days 02/28/2025 3:01 PM EDT [facility] Blood Venous blood specimen / Unknown Venipuncture / Unknown 02/23/2025 2:25 PM EDT 02/23/2025 2:35 PM EDT Afsaneh KAPOOR LAB MICROBIOLOGY - GENERAL O RDERABLES Final Result Performing Organization Address City/[facility]/ZIP Co de Phone Number [facility] [address] [place] [address], [place] [phone] * XR Chest 1 View (02/23/2025 2:15 PM EDT) Anatomical Region Laterality Modality Body Radiographic Monserrat ging 02/23/2025 2:33 PM EDT Impressions 02/23/2025 2:37 PM EDT Impression: Stable radiographic appearance of the chest, including volume loss and chronic pleural-parenchymal opacity in the left hemithorax consistent with previously treated lung carcinoma. No acute process identified. Telerad PA ([id number]) -------- FINAL REPORT -------- Dictated By: Fawn Levin Dictated Date: 02/23/2025 14:33 ET Assigned Physician: Fawn Levin Reviewed and Electronically Signed By: Fawn Levin Signed Date: 02/23/2025 14:37 ET Workstation ID: [id number] Transcribed By: Self Edit Transcribed Date: 02/23/2025 14:33 ET Narrative 02/23/2025 2:37 PM EDT History: Dyspnea. Personal history of lung carcinoma. Comparison: 07/30/23, thoracic CT 09/09/24 [place], [place] Findings: Portable AP upright chest at [...] lung carcinoma. Comparison: 07/30/23, thoracic CT 09/09/24 [place], [place] Findings: Portable AP upright chest at [...] carcinoma. No acute process identified. Telerad PA ([id number]) -------- FINAL REPORT -------- Dictated By: Fawn Levin Dictated Date: 02/23/2025 14:33 ET Assigned Physician: Fawn Levin Reviewed and Electronically Signed By: Fawn Levin Signed Date: 02/23/2025 14:37 ET Workstation ID: [id number] Transcribed By: Self Edit Transcribed Date: 02/23/2025 14:33 ET Afsaneh KAPOOR IMG XR PROCEDURES Final Resu lt * Urinalysis with reflex microscopic and culture (02/23/2025 2:04 PM EDT) Pathologist [facility] Specific [place] Urine 1.006 1.003 - 1.030 LAB URINALYSIS - AUTOMATED METHOD 02/23/2025 2:17 PM EDT [facility] pH, Urine 7.5 5.0 - 8.0 pH LAB URINALYSIS - AUTOMATED METHOD 02/23/2025 2:17 PM [facility] Leukocytes, Urine Negative Negative LAB URINALYSIS - AUTOMATED METHOD 02/23/2025 2:17 PM [facility] Nitrite, Urine Negative Negative LAB URINALYSIS - AUTOMATED METHOD 02/23/2025 2:17 PM [facility] Protein, Urine Negative <=Trace mg/dL LAB URINALYSIS - AUTOMATED METHOD 02/23/2025 2:17 PM [facility] Glucose, Urine Negative Negative mg/dL [...] 02/23/2025 2:17 PM [facility] Blood, Urine Negative Negative LAB URINALYSIS - AUTOMATED METHOD 02/23/2025 2:17 PM EDT [facility] Urine Urine specimen obtained by clean catch procedure / Unknown Non-blood Collection / Unknown 02/23/2025 2:04 PM EDT 02/23/2025 2:05 PM EDT Afsaneh KAPOOR LAB URINE ORDERABLES Final R esult Performing Organization Address City/[facility]/ZIP Co de Phone Number [facility] [address] [place] [address], [place] [phone] * Martinez urine culture tube (02/23/2025 2:04 PM EDT) [facility] Extra Tube Hold for add-ons. 02/23/2025 4:01 PM EDT [facility] Comment:Auto resulted. Urine Urine specimen obtained by clean catch procedure / Unknown Non-blood Collection / Unknown 02/23/2025 2:04 PM EDT 02/23/2025 2:05 PM EDT Afsaneh KAPOOR LAB URINE ORDERABLES Final R esult Performing Organization Address City/[facility] Co de Phone Number [facility] [address] [place] [address], [place] [phone] * Troponin I high sensitivity (02/23/2025 1:15 PM EDT) [facility] High Sensitivity Troponin I 25 <=54 ng/L LAB CHEMISTRY METHOD 02/23/2025 2:15 PM EDT [facility] Blood Venous blood specimen / Unknown Venipuncture / Unknown 02/23/2025 1:15 PM EDT 02/23/2025 1:39 PM EDT Narrative [facility] - 02/23/2025 2:15 PM EDT High levels of biotin in samples may falsely decrease hsTroponin values. Use caution when interpreting hsTroponin results in patients taking biotin who exhibit renal impairment (eGFR <60) or in patients taking more than 20 mg/day of biotin. us Afsaneh KAPOOR LAB BLOOD ORDERABLES Final R esult Performing Organization Address City/[facility]/ZIP Co de Phone Number [facility] [address] [place] [address], [place] [phone] * (ABNORMAL) Prothrombin time with INR (02/23/2025 1:15 PM EDT) [facility] Protime 14.9(H) 10.6 - 13.9 sec LAB COAGULATION METHOD 02/23/2025 1:52 PM EDT [facility] INR 1.2 LAB COAGULATION METHOD 02/23/2025 1:52 PM EDT [facility] Blood Venous blood specimen / Unknown Venipuncture / Unknown 02/23/2025 1:15 PM EDT 02/23/2025 1:40 PM EDT us Afsaneh KAPOOR LAB BLOOD ORDERABLES Final R esult Performing Organization Address City/[facility]/ZIP Co de Phone Number [facility] [address] [place] [address], [place] [phone] * Type and screen (02/23/2025 1:15 PM EDT) [facility] ABO Group A 02/23/2025 2:47 PM EDT [facility] Rh Type Positive 02/23/2025 2:47 PM EDT [facility] Antibody Screen Negative 02/23/2025 2:47 PM EDT [facility] Blood Venous blood specimen / Unknown Venipuncture / Unknown 02/23/2025 1:15 PM EDT 02/23/2025 1:40 PM EDT us Afsaneh KAPOOR LAB BLOOD BANK TEST ORDERABL ES Final Result [facility] [address] [place] [address], * (ABNORMAL) Comprehensive Metabolic Panel (CMP) (02/23/2025 1:15 PM EDT) Sodium 136 133 - 145 mmol/L LAB CHEMISTRY METHOD 02/23/2025 2:13 PM EDT [facility] Potassium 3.5 3.5 - 5.5 mmol/L LAB CHEMISTRY METHOD 02/23/2025 2:13 PM EDT [facility] Chloride 97 96 - 110 mmol/L LAB CHEMISTRY METHOD 02/23/2025 2:13 PM [facility] CO2 33(H) 21 - 32 mmol/L LAB CHEMISTRY METHOD 02/23/2025 2:13 PM EDT [facility] Anion Gap 6 3 [...] LAB CHEMISTRY METHOD 02/23/2025 2:13 PM EDT [facility] eGFR 71 >=60 mL/min/1. 73m2 LAB CHEMISTRY METHOD 02/23/2025 2:13 PM [facility] Comment:Calculation based on the Chronic Kidney Disease Epidemiology Collaboration (CKD-EPI) equation refit without adjustment for race. BUN/Creatinine Ratio 27.7 LAB CHEMISTRY METHOD 02/23/2025 2:13 PM T [facility] Calcium 10.0 8.5 - 10.5 mg/dL LAB CHEMISTRY METHOD 02/23/2025 2:13 PM EDT [facility] AST (SGOT) 29 10 - 42 unit/L LAB CHEMISTRY METHOD 02/23/2025 2:13 PM EDT [facility] ALT (SGPT) 24 10 - 60 unit/L LAB CHEMISTRY METHOD 02/23/2025 2:13 PM EDT [facility] Alkaline Phosphatase 72 42 - 121 unit/L LAB CHEMISTRY METHOD 02/23/2025 2:13 PM EDT [facility] Total Protein 6.9 6.0 - 8.0 g/dL LAB CHEMISTRY METHOD 02/23/2025 2:13 PM EDT [facility] Albumin 3.5 3.2 - 5.0 g/dL LAB CHEMISTRY METHOD 02/23/2025 2:13 PM EDT [facility] Total Bilirubin 0.5 0.0 - 1.4 mg/dL LAB CHEMISTRY METHOD 02/23/2025 2:13 PM EDT [facility] Blood Venous blood specimen / Unknown Venipuncture / Unknown 02/23/2025 1:15 PM EDT 02/23/2025 1:39 PM EDT Afsaneh KAPOOR LAB BLOOD ORDERABLES Final R esult [facility] [address] [place] [address], * 12-Lead ECG (02/23/2025 1:05 PM EDT) Ventricular Rate ECG 79 BPM GEMUSE Atrial Rate 79 BPM GEMUSE P-R Interval 164 ms GEMUSE QRS Duration 138 ms GEMUSE Q-T Interval 422 ms GEMUSE QTc 483 ms GEMUSE P Wave Kaplan 68 degrees GEMUSE R Kaplan -59 degrees GEMUSE T Kaplan 62 degrees GEMUSE ECG Interpretation Normal sinus [...] GEMUSE from Last 3 Months Insurance MEDICARE [facility] Advance Directives Documents on File Type Date Recorded 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
--- OUTSIDE RECORDS SUMMARY | 2025-05-07 11:17 | XMS_ITS | Encounter Summary ---
Author Organization [facility] Address [address] [place] [address] Phone Care Team Providers Care Office Lead Name Role Phone Caitlyn Bowie MD Primary Care Provider [phone]- [phone] Encounter Details Date Type Department Care Team (Late Contact Info) Description 12/10/2024 Documentation Only [facility] [address] [place] [address] Marina Abdi [address] [place] [address] Social History Tobacco Use Types [...] [facility] [address] [place] [address] Rubén Ashraf MD [address] [place] [address] [place] [address] documented as of this encounter Visit Diagnoses Not on filedocumented in this encounter Care Teams Office Lead Relationship Specialty Start Date End Date Caitlyn Bowie MD [address] [place], [place] PCP - General Internal Medicine 09/24/24 documented as of this encounter
== END 2025-05-07 10:42 | disposition home or self-care (01) ==
LOC: HO.HMCHD 09:31
PROVIDERS: PCP Internal Medicine; Visit Provider Internal Medicine
DX: I50.32 Chronic diastolic (congestive) heart failure (principal); Z79.01 Long term (current) use of anticoagulants; D64.9 Anemia, unspecified; J44.9 Chronic obstructive pulmonary disease, unspecified; J96.12 Chronic respiratory failure with hypercapnia; G47.33 Obstructive sleep apnea (adult) (pediatric)

== ENCOUNTER → 2025-05-07 09:29 | Outpatient (BNVA) | payer MEDICARE, SELFPAY | PROVIDERS: PCP Internal Medicine; Visit Provider Internal Medicine | DX: I50.32 Chronic diastolic (congestive) heart failure (principal); D64.9 Anemia, unspecified; J44.9 Chronic obstructive pulmonary disease, unspecified; J96.12 Chronic respiratory failure with hypercapnia; G47.33 Obstructive sleep apnea (adult) (pediatric); R32 Unspecified urinary incontinence; Z86.711 Personal history of pulmonary embolism; Z86.718 Personal history of other venous thrombosis and embolism; Z79.01 Long term (current) use of anticoagulants | CPT/HCPCS: 99212 ==

== ENCOUNTER 2025-05-08 14:27 | Outpatient (REF) | payer MEDICARE, SELFPAY ==
[2025-05-08 18:32] LABS: Folate > 20.0 ng/mL (> or = 4.0); Vitamin B12 > 2000 pg/mL (200-900)
== END 2025-05-08 14:28 | disposition home or self-care (01) ==
LOC: HO.LAB 14:27
PROVIDERS: Absent Provider Internal Medicine; PCP Internal Medicine; Visit Provider Hospitalist
DX: J41.0 Simple chronic bronchitis (principal); J96.12 Chronic respiratory failure with hypercapnia; I27.20 Pulmonary hypertension, unspecified; R91.8 Other nonspecific abnormal finding of lung field; J70.1 Chronic and other pulmonary manifestations due to radiation; I50.32 Chronic diastolic (congestive) heart failure; C34.12 Malignant neoplasm of upper lobe, left bronchus or lung; J90 Pleural effusion, not elsewhere classified; G47.33 Obstructive sleep apnea (adult) (pediatric); D64.9 Anemia, unspecified; Z99.81 Dependence on supplemental oxygen
CPT/HCPCS: 36415; 82607; 82746; 83921; 99212

== ENCOUNTER 2025-05-08 14:27 | Outpatient (AMB) | payer MEDICARE, SELFPAY ==
[2025-05-08 14:33] VITALS: BP 110/50; PULSE 70; O2SAT 99
--- NOTE | 2025-05-08 14:33 | A.OFFVIS_ITS ---
Vital Signs 05/08/25 14:33 Height 5 ft 2 in BMI Reason not done Patient refused/unable BP 110/50 L Blood Pressure Location Lt brachial Position Sitting Pulse 70 Pulse Source Pulse Oximeter Pulse Oximetry (%) 99 Oxygen Delivery Method Nasal Cannula Oxygen Flow Rate 2 Intake Visit Reasons: F/U ok per MR [employer] Teacher Required: No Accompanied by: Self / Same As Patient Allergies morphine Allergy (Severe, Verified 05/08/25 14:37) Itching avocado (AVOCADO) Allergy (Mild, Verified 05/08/25 14:37) ITCHY THROAT, RASH azithromycin (AZITHROMYCIN) Allergy (Mild, Verified 05/08/25 14:37) ITCHY THROAT, RASH barium iodide (BARIUM IODIDE) Allergy (Mild, Verified 05/08/25 14:37) ITCHY THROAT, RASH barium sulfate Allergy (Mild, Verified 05/08/25 14:37) Itch bee pollen (BEE STINGS) Allergy (Mild, Verified 05/08/25 14:37) ITCHY THROAT, RASH ciprofloxacin (From CIPRO) Allergy (Mild, Verified 05/08/25 14:37) ITCHY THROAT, RASH clarithromycin (From BIAXIN) Allergy (Mild, Verified 05/08/25 14:37) ITCHY THROAT, RASH diatrizoate meglumine (From GASTROGRAFIN) Allergy (Mild, Verified 05/08/25 14:37) ITCHY THROAT, RASH diatrizoate sodium (From GASTROGRAFIN) Allergy (Mild, Verified 05/08/25 14:37) ITCHY THROAT, RASH diclofenac (From VOLTAREN) Allergy (Mild, Verified 05/08/25 14:37) ITCHY THROAT, RASH erythromycin base (ERYTHROMYCIN BASE) Allergy (Mild, Verified 05/08/25 14:37) ITCHY THROAT, RASH gentamicin (GENTAMICIN) Allergy (Mild, Verified 05/08/25 14:37) ITCHY THROAT, RASH Iodinated Contrast Media (IVP DYE) Allergy (Mild, Verified 05/08/25 14:37) ITCHY THROAT, RASH levofloxacin (From LEVAQUIN) Allergy (Mild, Verified 05/08/25 14:37) ITCHY THROAT, RASH metronidazole (From FLAGYL) Allergy (Mild, Verified 05/08/25 14:37) ITCHY THROAT, RASH moxifloxacin (From AVELOX) Allergy (Mild, Verified 05/08/25 14:37) ITCHY THROAT, RASH Penicillins (PENICILLINS) Allergy (Mild, Verified 05/08/25 14:37) ITCHY THROAT, RASH shrimp (SHRIMP) Allergy (Mild, Verified 05/08/25 14:37) ITCHY THROAT, RASH Sulfa (Sulfonamide Antibiotics) (SULFA (SULFONAMIDE ANTIBIOTICS)) Allergy (Mild, Verified 05/08/25 14:37) ITCHY THROAT, RASH vancomycin (VANCOMYCIN) Allergy (Mild, Verified 05/08/25 14:37) ITCHY THROAT, RASH clindamycin Adverse Reaction (Intermediate, Verified 05/08/25 14:37) Unknown spironolactone Adverse Reaction (Intermediate, Verified 05/08/25 14:37) diarrhea HPI Comments Details: The patient is a 80 y/o woman with a complicated history which includes: COPD, KANDY, pulmonary HTN, history pulmonary emboli on chronic anticoagulation, lung CA Stage IIIA s/o neoadjuvant chemoradiation and Left upper lobe lobectomy. She did have a CT scan today that I personally reviewed. Has not been personally read by the radiologist. Based on my reading she has some pulmonary nodules some that are new 4 mm in the right major fissure area. Other nodules are stable. Other post operative and pulmonary fibrotic changes stable. The patient should get a CT scan in 6 months. Also to note, she did not tolerate the Incruse nor budesonide. Will consider Daliresp. She was admitted to [facility] with diverticulitis. She was placed on IV antibiotics but she left against medical advice because she did not like the antibiotic options. In the meantime she was having some issues with coughing up some blood. She is also concerned because on her visit to [facility] she did have a CT scan of the chest and she was told that she had significant scarring of her lungs in addition to lung volume loss. I have not looked at the CT scan back in reassured her that she has had this radiation fibrosis for long time and volume loss due to the scarring was present before. We did review her perfusion scan demonstrating no defects to suggest any blood clots. Interestingly in the quantitative study the patient did have 81% of the blood flow going to her right lung and 18% going to the left. This is likely due to her previous surgery and also radiation changes. 03/21/2024 the patient is here for pulmonary follow-up visit. She has multiple complaints. She is entirely seems any physicians. She is still dealing with the wound getting plenty of wound care 4. Still getting debrided. In addition to that she has had a productive cough. The phlegm is now clear but thick difficult to expectorate. Sometimes feel like it is dripping for nasal passages down like a postnasal drip. The patient is currently on cefpodoxime. She is finishing a course. We did try to get sputum in the office but she was not able to do so. I did give her a cup in order for her to be doing her own time. We will be able to look for both Gram stain culture and also AFB. The patient also had a chest x-ray which I personally reviewed and also compared to her previous x-rays. It appears that she has worsening left-sided pleural effusion. Hard to know that is long as very affected on that side there is any active disease otherwise. She has not had a CT scan since October. In view of the worsening chest x-ray in the ongoing symptoms will go ahead and request a CT scan time. The patient also could try some Mucomyst. I will send some to the pharmacy to see if we can get it. She understands that is hard to get. When she gets she can use it twice a day for CPT to see if this helps clear the secretions that gets that within her airways. In addition to that the patient has been using the BiPAP. The BiPAP therapy has been affecting beneficial. She does use it for more than 4 hours a night. However, she does have a component of hypercarbia and she would do better with the noninvasive ventilator. Currently she is set up for sleep study at [facility] coming up. Hopefully they can do a split study and try titrate her figure out what her best form of therapy it is. At some point though if she continues on the BiPAP will need to replace it because his older than 5 years. 05/09/2024 the patient is here for a pulmonary follow-up visit. Overall she is doing well from a respiratory status. She recently did have a CT scan of the chest that at [facility]. I did personally reviewed. Appears to be stable. She does have the chronic effusion in the parenchymal disease. This is all stable. She does have a small compression fracture though. Has signif icant osteopenia. She did have blood work with her computer technology teacher recently. Her antiphospholipid antibodies and anticardiolipin antibodies continue antiphospholipid antibody elevated. Her homocystine that was also elevated. She is going to start folic acid. She is concerned because her D-dimer was significantly elevated. Although she did have trauma to the legs. She had lower extremity Dopplers which were negative for any clots which is reassuring. Previous he Q scans have been reassuring. Will go ahead and repeat her blood test to see make sure that the D-dimer is coming down. If the D-dimer continues to be elevated then will do additional testing for potential occult clots. She continues on the Coumadin with a goal level 1.5-2. I do believe that she should stay on it based on the fact that she has significant symptoms and coming off the medicine may result in more security of the results specially since the Coumadin has been working for her chronic thromboembolic disease. From the wound standpoint the patient is doing better from the wound healing on her right lower extremity although she recently had another the trauma to the left. She is also dealing with a boil or a growth on the perineal area. She is going to be seeing paralegal internship for that. 08/08/2024 the patient is here for a pulmonary follow-up visit. Overall she is doing okay. She does have issues with her balance and also issues with dysuria. The patient has been also having issues with her oxygen that was at nighttime. She has been noticing worsening hypoxia. She has been using her BiPAP 16/10. She does use it with her oxygen. The patient did have a download recently and her AHI is up to 10 cm. She also had a blood gas demonstrating elevations in her CO2. Therefore, will go ahead and increase her BiPAP settings from 16-10 to 18/12. This BiPAP is about 6 years old now. The patient likely needs a replacement. Will go ahead and refer her to sleep in [place] in order for her to undergo a split study in order to get her a new PAP therapy. During the titration study component will be helpful to see if she is better off with AVAPS versus BiPAP. We did try her underlying AVAP but she could not tolerate it. She followed she did not have enough teaching. Therefore, will go ahead and increase the pressures of her BiPAP monitor her AHI and recheck a venous gas while we wait for her to see a certified sleep specialist in [place]. In the meantime she continues with her diuresis. Will go ahead and check a blood work. The patient also had a CT scan of the chest back in 03/29/2024 demonstrating no acute disease just a chronic changes. Will plan to talk about any additional imaging during her next visit. She will continue with current respiratory regimen for now. 09/11/2024 the patient is here for hospital follow-up visit. Apparently she was in the ER with worsening shortness of breath and cough. She was at [facility]. There she did have blood work. Her brain atretic peptide was significantly elevated at 100. She also did have a CT scan of the chest which I personally reviewed. She does have just chronic findings which include her radiation fibrosis decreased lung volume on the left along with the small pleural effusion on the left with the heart shifted Leftward as well volume loss. She was diagnosed with bronchitis and the patient was discharged. We did review further blood work and her sedimentation rate has been climbing slowly now at 51. in addition to that she does have a history of positive CLARA and now she is complaining of some pleuritic chest discomfort bringing up the question of underlying connective tissue disease resulting in some pleuritis. In addition to that she has been feeling episodes of increased heart rate and sergio rtness of breath. I suspect that is likely a pulmonary vascular component. Her last echocardiogram demonstrating moderate degree of pulmonary hypertension. Unfortunately, she did not tolerate pulmonary vasodilators because if the significant amount of increase in the volume to the left ventricle then ultimately resulting in congestive heart failure. Therefore hold off on that. The patient is also anxious. She is not sleeping well. She feels that she is going to fall asleep and not wake up. She is willing to try small dose of Ambien. This will help her fall asleep and I explained to her that is not going to suppress her respiratory drive. We also did look at her blood gas that she had initially when she showed up and she had a severe case of respiratory alkalosis and she was able to breathe down her pCO2 down to 24 which is pretty significant. In addition to that she is willing to try small dose of Plaquenil to treat her for underlying pleuritis and pain and see if this can provide some relief as we repeat her blood work. She will be following up with Hematology. 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 I did print out the blood work so she can talk to her computer technology teacher in the meantime will go ahead and repeat her blood work as well. She continues to be on high dose of diuretics. Volume status seems to be better at this time. She continues use the oxygen with good effect. Sometimes her oxygen drops because of her cardiopulmonary disease. She does not have much pulmonary reserve. In with the pulmonary hypertension along with diastolic dysfunction this quit quickly result in hypoxia. She can take breaks though when she is sitting as lungs are oxygens above 90%. 11/04/2024 the patient is here for a pulmonary follow-up visit. Since we last spoke she started developing abdominal pain. She did go to the ER where she was diagnosed with diverticulitis based on a CAT scan showing fat stranding close to the areas of diverticulosis in the left descending colon. The patient was not given any antibiotics because of all her allergies. She then followed up with the GI doctor called and it was recommended that she go back to the ER. She has not started any therapy for this. She has been feeling a little dehydrated from the lack of p.o. intake as she is doing significant amount of bowel rest. She has tolerated cephalosporins in the past. I will go ahead and send her Vantin to the pharmacy that she can use. She has also tolerated ceftriaxone in the hospital that has also been helpful for her. She does not tolerate clindamycin anymore and unfortunately she does not call tolerate the Flagyl either so we can not provide her with any anaerobic coverage. Still though Vantin has a broad spectrum coverage and should help. If her symptoms worsen though she should definitely go to the ER specially she is getting dehydrated or for abdominal comfort is worse or if she started developing fevers or chills or any other concerning symptoms. As far as her sleep apnea the patient did undergo a sleep study. This was done in [place]. It was recommended that based on her sleep apnea noted on his study that she start CPAP therapy. I did not see that they checked the end-tidal CO2 but at this point I think is reasonable for her to start CPAP on 2 L of oxygen and if she does not tolerate that if she fails C PAP we can quickly switch over to BiPAP anyway. Will go ahead and request a replacement APAP through [facility] [facility]. And therefore she can get her supplies as well. If she has a machine prior to her next appointment she can always bring it in so we can review with her. From a respiratory status she is okay she is using her oxygen with good effect. The patient continues on the Lasix as well she is taking 160 mg daily total. Because of her significant weight loss decreased p.o. intake I did have her only take half the dose for couple days in order for her to read a Barkley very and then go back to the full dose when she is able to take by mouth. 11/21/2024 the patient is here for pulmonary follow-up visit. The patient overall has been feeling better from the diverticulitis. She did complete the Vantin. She still has some on hold in case her symptoms worsened again. She will be following up with Dr. Fang soon. In the meantime respiratory status is stable. She does have bowel some dyspnea and hypoxia. She is already on high dose of diuretics. She is going to be following up a heart failure specialist. I do believe that is Jardiance may be a potential option for her. In the meantime she continues use her respiratory therapy with good effect. She continues use her oxygen did effect. She also continues use the BiPAP every night. BiPAP therapy has been affecting beneficial. She does use it for more than 4 hours a night. She is complaining of a dry mouth. I did increase the humidity a little bit. She can always increase in more from home. In the meant jose daniel her BiPAP is very old. Will request a replacement BiPAP at this time with a local [employer], [facility]. Otherwise patient follow-up in 2-3 months. If she has any issues prior to this she will call for an earlier assessment. 12/26/2024 the patient is here for sick visit. The patient had a an event at home where she was exposed to a smoke due to vinegar and also baking soda as she was trying to clean a pot. She did develop some difficulty breathing and a significant cough. She did call the office and we had increased her prednisone to 20 mg. Seems that she is getting better although she has a still barky cough. Still feels like she has a very sore trachea. Likely from respiratory dysfunction syndrome from the initial exposure to the fumes and smoke. She is having hard time sleeping having some chest discomfort. Will try some cough medication with codeine to try to alleviate her symptoms. She is going to wean down to the baseline prednisone of 5 mg. In the meantime she continues have daytime drowsiness. She has been using just oxygen though. She has had 2 sleep studies demonstrating no evidence of any significant sleep apnea. Therefore, will hold off on CPAP therapy at this time. Will go ahead and check a blood gas to see if her CO2 is elevated. If her CO2 is elevated then we have to consider treatment for chronic hypercarbic respiratory failure. The patient also has been complaining of dyspnea on exertion. Moderate severity. Will go ahead and start her on PFTs and pulmonary rehabilitation. 01/02/2025 the patient is here for a pulmonary follow-up visit. The patient has been using the BiPAP. The BiPAP therapy appears to be affecting beneficial by though she is swallowing a lot of air and getting some bloating. I did decrease the pressures were 18/12 to 16/8. She also had a blood gas demonstrating a pCO2 of 59 mmHg. The patient therefore benefits from the BiPAP. The machine now is older and needs to be replaced. We will go ahead and request an overnight oximetry to see if we can have her qualify for BiPAP again with [facility]. Otherwise we may have to stay with [facility] about getting a replacement BiPAP through them. The patient did have pulmonary function studies and I did personally reviewed him. Appears to have interval worsening overall with now moderate obstruction consistent with moderate COPD and also moderate restrictive ventila tory defect which is also worse. In addition to the severe diffusion impairment likely secondary to the above findings and her underlying pulmonary vascular disease. This all explained the need for unconfirmed Ingrid for the oxygen supplementation. She continues to use a nebulizer. Her machine is no longer working correctly therefore we will request a replacement. And I do feel strongly about her performing pulmonary rehabilitation. In the meantime she did have a twisting of her ankle and she is having some right ankle pain and bruising so therefore will have her get an x-ray of that before she starts rehab. 02/18/2025 the patient is here for a pulmonary follow-up visit. She is still struggling with her respiratory symptoms. Sometimes developing chest tightness and not sure if his cardiac or pulmonary. The last time she was in the hospital was back in early February. She had an x-ray which was without any acute issues just a chronic left-sided pleural effusion. Her blood work was okay except for slightly elevated troponins which have been elevated since October. The patient has been on the diuretics. She seems to be tolerating them well in her volume status is overall better. Recently though she was having issues with her left eye having some eye pain and blurriness and she went to see the open hearth furnace laborer and she was diagnosed with optic neuritis. She does have a history of connective tissue conditions and question of multiple sclerosis when she was very young. Therefore, is not clear at this point but she did have increased dose of prednisone given. And she is going to taper it down. I did encourage her to make sure she follows up with ophthalmology to make sure that the neuritis subsides. In the meantime the patient is been using the BiPAP. Unfortunately though we did an overnight oximetry which still showing significant hypoxia and she will need to have increased oxygen needs with the BiPAP and also she had a blood gas demonstrating an elevated pCO2 of 61 mmHg suggesting that she is failing BiPAP. The patient needs to go on a noninvasive ventilator. She does not have obstructive sleep apnea. The patient does have chronic hypoxic and hypercarbic respiratory failure due to her COPD. And at this point she carries a poor prognosis and high risk so hospitalizations. Therefore, she needs to be on a noninvasive ventilator to improve her gas exchange decrease her hospitalizations and improve her prognosis. 03/28/2025 the patient is here for sick visit. She has been developing worsening cough chest tightness pleuritic chest pain primarily on the left side. Moderate severity. She also complains of a sore throat. The cough itself is been croupy in nature. Difficult to expectorate. The patient did call we start her on doxycycline in addition to increase her prednisone baseline. She did have a chest x-ray in addition to a sinus x-ray. Sinuses were clear and the chest x- ray demonstrates a persistent left-sided pleural effusion which appears to be just a slight increased. The patient also had blood work. She does have an elevated white count with a decreasing the lymphocyte count suggesting the possibility of a viral syndrome. We did test her for flu RSV and COVID in the there were all negative. The patient does have some wheezing on the left lung which is asymmetrical. Likely has a component of tracheobronchitis with a croupy cough. The patient will continue on the doxycycline. In the meantime will go ahead and increase the prednisone to 20 mg and slowly taper it down. The patient also will provide cough syrup. Will plan to do a CAT scan once she is better to follow-up with her nodular densities and history of cancer in the abnormal chest x-ray. 04/10/2025 the patient is here for a pulmonary follow-up visit. Overall she is feeling little better from the respiratory status. Her chest tightness has subsided and the cough has a sinus. She is tapering down on the prednisone. The patient continues use her respiratory therapy with partial improvement. She is also struggling with her sleep. The patient does have significant history of sleep apnea and also chronic hypercarbic respiratory failure. Unfortunately she had a sleep study recently but it did not measure her end-tidal CO2 is therefore it is suboptimal and nondiagnostic. Will request a repeat sleep study at [facility] in order to follow her end-tidal CO2 and assess her for iVAPS were AVAP therapy. She has had 2 episodes of chest heaviness along with dizziness with a near syncopal type of reaction. The symptoms last sec but are pretty significant. She did try to get a Holter monitoring the past but she had an allergic reaction to the tape. She will follow-up with Cardiology regarding any other alternative testing that she can have done to assess for cardiac arrhythmias. The patient follow-up in 6-8 weeks. 05/08/2025 the patient is here for hospital follow-up visit. She was admitted to the hospital with congestive heart failure. During the hospital stay she did have a chest x-ray demonstrating slightly worsening left-sided pleural effusion which is very chronic issue for her and likely worsen with the increased volume overload status. The patient did have an echocardiogram demonstrating diastolic dysfunction. In addition to that the mitral clip seems to be working just fine. Her pulmonary pressures were stated to be normal. The patient did get diuresed. She was started recently on Jardiance but she has not picked up the prescription. She will be starting it tomorrow. I do believe this would be a very good option for her. As far as her respiratory status seems to be stable. She seems to be using the oxygen with good effect. She understands that when she goes into heart failure her oxygen levels will decrease specially because she has no pulmonary reserve. In addition to that she continues have daytime drowsiness. She did undergo a sleep study at [facility] although she has a hard time sleeping. Her report she will be coming up in the next week. Will have her come back in 1-2 weeks and we can review those results. In the meantime she is going to continue with the current respiratory therapy. Continue with the oxygen therapy and using her BiPAP at nighttime. [facility] Medical History (Updated 05/08/25 @ 14:59 by Henry Kelly MD) Anti-phospholipid antibody syndrome Chest pain Chest pain Ankle pain Chronic hypercapnic respiratory failure KANDY treated with BiPAP COPD (chronic obstructive pulmonary disease) Open wound Warfarin anticoagulation Complex sleep apnea syndrome Leg pain Anemia Tachycardia DVT (deep venous thrombosis) Compression fracture of body of thoracic vertebra ASD (atrial septal defect) Pleuritic chest pain History of COVID-19 Chronic anticoagulation Hypothyroidism GERD (gastroesophageal reflux disease) Hyperlipidemia Hypertension Factor 5 Leiden mutation, heterozygous History of non-ST elevation myocardial infarction (NSTEMI) Hypoxia Anxiety PTSD (post-traumatic stress disorder) Hemoptysis Dyspnea Tracheobronchitis CLARA positive Diverticulitis Allergic bronchitis (HFpEF) heart failure with preserved ejection fraction Subarachnoid bleed Insomnia Hypogammaglobulinemia Chronic respiratory failure Arterial insufficiency of lower extremity Complex regional pain syndrome i of right lower limb Post herpetic neuralgia Pulmonary hypertension Pericardial effusion Pulmonary emboli Pleural effusion Radiation fibrosis of lung Pneumonitis Pulmonary nodules Lung cancer Surgical History History of colonoscopy History of lung surgery History of tonsillectomy History of hysterectomy S/P mitral valve clip implantation History of cardiac cath Family History Sister No problems noted. Mother Cardiovascular disease Daughter Tachycardia Other KANDY (obstructive sleep apnea) Social History Household Members: None Housing: House Do you presently have visiting nurse or other home services: No Alcohol intake: never Comment: stand by assist with ambulation Patient Tobacco Use Status: Never used Tobacco e-Cigarette/Vaping Use: Never Used Second Hand Smoke Exposure: No Advance Directives Date on File: 06/15/22 service: No Current occupational status: retired Review of Systems Const Denies chills, Reports fatigue, Denies fever(s), Denies weight gain and Denies weight loss Eyes Denies change in vision ENT Denies dizziness Card Denies chest pain, Reports leg edema, Denies lightheadedness, Reports palpitations, Reports dyspnea on exertion, Denies orthopnea and Denies other Resp Reports cough and Reports dyspnea on exertion GI Denies hematochezia and Denies change in stool character Musc Denies abnormal gait, Denies muscle weakness, Denies numbness, Denies radiating pain into limb and Denies tingling Skin/Breast Reports change in pigmentation, Reports skin swelling and Reports unusual bruising Neuro Denies abnormal gait, Denies dizziness, Denies numbness and Denies tingling Psych Reports depression Endo Reports fatigue and Reports palpitations Physical Exam Vital Signs: Last Vital Signs Pulse 70 05/08/25 14:33 BP 110/50 L 05/08/25 14:33 Pulse Ox 99 05/08/25 14:33 Oxygen Delivery Method Nasal Cannula 05/08/25 14:33 Oxygen Flow Rate 2 05/08/25 14:33 Last Vital Signs Temp 97.7 F 06/20/22 08:00 Pulse 90 06/20/22 08:00 Resp 16 06/20/22 08:00 BP 137/60 06/20/22 08:00 Pulse Ox 93 06/20/22 08:00 O2 Del Method 06/20/22 08:00 O2 Flow Rate 2 06/20/22 08:00 FiO2 45 06/14/22 11:07 BMI result Body Mass Index 23.0 Const General: cooperative, comfortable, alert and awake Orientation/consciousness: patient oriented x3 HEENT Head: Yes atraumatic Eyes General: appearance normal, both eyes and all related structures Neck Neck: Yes trachea midline, Yes supple and Yes no JVD Chest Chest palpation & inspection: tenderness rib (right side) Resp Effort & Inspection: normal respiratory effort and No prolonged expiratory phase Auscultation: no rales, no rhonchi, no wheezes and diminished lung sounds Cardio Rate: regular rate Rhythm: regular rhythm Heart sounds: S1 normal heart sound present and S2 normal heart sound present GI Palpation (GI): Soft to palpation and Tenderness to palpation present (GI) in the LLQ Auscultation: normal bowel sounds Skin General skin exam: purpura and scars Neuro General: patient oriented x3 and no focal motor deficits Extrem Right lower extremity: edema Assessment & Plan Assessment & Plan (1) COPD (chronic obstructive pulmonary disease): Code(s): J44.9 - Chronic obstructive pulmonary disease, unspecified Category: Medical Qualifiers: COPD type: chronic bronchitis Chronic bronchitis type: simple Qualified Code(s): J41.0 - Simple chronic bronchitis (2) Cough: Code(s): R05.9 - Cough, unspecified Category: Medical Qualifiers: Cough type: subacute Qualified Code(s): R05.2 - Subacute cough (3) Chronic hypercapnic respiratory failure: Code(s): J96.12 - Chronic respiratory failure with hypercapnia Category: Medical (4) Pulmonary hypertension: Comment: severe based on RHC, moderate based on recent echo Code(s): I27.20 - Pulmonary hypertension, unspecified Category: Medical (5) Pulmonary nodules: Code(s): R91.8 - Other nonspecific abnormal finding of lung field Category: Medical (6) Chronic respiratory failure: Code(s): J96.10 - Chronic respiratory failure, unspecified whether with hypoxia or hypercapnia Category: Medical Qualifiers: Respiratory failure complication: hypoxia and hypercapnia Qualified Code(s): J96.11 - Chronic respiratory failure with hypoxia; J96.12 - Chronic respiratory failure with hypercapnia (7) Radiation fibrosis of lung: Code(s): J70.1 - Chronic and other pulmonary manifestations due to radiation Category: Medical (8) (HFpEF) heart failure with preserved ejection fraction: Code(s): I50.30 - Unspecified diastolic (congestive) heart failure Category: Medical Qualifiers: Heart failure chronicity: chronic Qualified Code(s): I50.32 - Chronic diastolic (congestive) heart failure (9) Lung cancer: Code(s): C34.90 - Malignant neoplasm of unspecified part of unspecified bronchus or lung Category: Medical Qualifiers: Laterality: left Lung location: upper lobe of lung Qualified Code(s): C34.12 - Malignant neoplasm of upper lobe, left bronchus or lung (10) Pleural effusion: Code(s): J90 - Pleural effusion, not elsewhere classified Category: Medical (11) KANDY (obstructive sleep apnea): Code(s): G47.33 - Obstructive sleep apnea (adult) (pediatric) Category: Medical Plan prednisone 2.5mg QOD cough medicine Ambien for sleep continue Advair ASHA as needed continue ASHA (xopenex) as needed CPT with acapella valve fluticasone Oxygen 2L/pulse with activity and sleep. POC Inogen G5 in [place] [facility] pending results duiresis as tolerated, will start Jardience declined Ohtuvayre F/U 1-2 weeks Coding Level of Care Code Est Pt Level 5 (31244) Complex EM visit Add On G2211 Diagnoses Simple chronic bronchitis J41.0 COPD type: chronic bronchitis Chronic bronchitis type: simple Subacute cough R05.2 Cough type: subacute Chronic hypercapnic respiratory failure J96.12 Pulmonary hypertension I27.20 Pulmonary nodules R91.8 Chronic respiratory failure with hypoxia and hypercapnia J96.11; J96.12 Respiratory failure complication: hypoxia and hypercapnia Radiation fibrosis of lung J70.1 Chronic heart failure with preserved ejection fraction I50.32 Heart failure chronicity: chronic Malignant neoplasm of upper lobe of left lung C34.12 Laterality: left Lung location: upper lobe of lung Pleural effusion J90 KANDY (obstructive sleep apnea) G47.33 Time Spent (min) 45
--- OUTSIDE RECORDS SUMMARY | 2025-05-08 17:30 | XMS_ITS | Encounter Summary ---
Author Organization [facility] and [facility] Address [address] [place] [address] Care Team Providers Care Roustabout Crew Name Role Phone Caitlyn Bowie MD Primary Care Provider +1- [phone] Encounter Details Date Type Department Care Team ([facility] st Contact Info) Description 09/16/2020 Scanned Document [facility] Health Information Management [address] [place] [phone] External, Provider Social History Tobacco Use Types [...] encounter Results * CT Result Scan (09/16/2020) Provider External IMG SCAN REPORTS Final Result [...] End Date Caitlyn Bowie MD [address] [address] PCP - General Internal Medicine 05/06/21 documented as of this encounter
--- OUTSIDE RECORDS SUMMARY | 2025-05-08 17:30 | XMS_ITS | Encounter Summary ---
Author Organization [facility] and [facility] Address [address] [place] [address] Care Team Providers Care Store Receiving Specialist Name Role Phone Caitlyn Bowie MD Primary Care Provider +1- [phone] Encounter Details Date Type Department Care Team (Late st Contact Info) Description 12/16/2016 Scanned Document [facility] Health Information Management [address] [place] [address] External, Provider Social History Tobacco Use Types [...] as of this encounter Care Teams Store Receiving Specialist Relationship Specialty Start Date End Date Caitlyn Bowie MD 3400 [facility] 1 [place] [address] PCP - General Internal Medicine 05/06/21 Henry Kelly MD Pulmonary Department [address] [facility], [address] [place] [address] Physician Pulmonary Disease 09/06/17 06/22/20 documented as of this encounter
--- OUTSIDE RECORDS SUMMARY | 2025-05-08 17:30 | XMS_ITS | Encounter Summary ---
Author Organization [facility] Address [address] [place] [address] Care Team Providers Care Development Planner Name Role Phone Caitlyn Bowie MD Primary Care Provider +1- [phone] Encounter Details Date Type Department Care Team ([facility] st Contact Info) Description 09/17/2020 Scanned Document [facility] Health Information Management [address] [place] [address] External, Provider Social History Tobacco Use Types [...] as of this encounter Care Teams Development Planner Relationship Specialty Start Date End Date Caitlyn Bowie MD [facility] [address] [address] PCP - General Internal Medicine 05/06/21 documented as of this encounter
--- OUTSIDE RECORDS SUMMARY | 2025-05-08 17:30 | XMS_ITS | Encounter Summary ---
Author Organization [facility] Address [address] [place] [address] Care Team Providers Care Turbine Inspector Name Role Phone Caitlyn Bowie MD Primary Care Provider +1- [phone] Encounter Details Date Type Department Care Team ([facility] st Contact Info) Description 09/15/2020 Scanned Document [facility] Health Information Management [address] [place] [address] External, Provider Social History Tobacco Use Types [...] documented as of this encounter Care Teams Turbine Inspector Relationship Specialty Start Date End Date Caitlyn Bowie MD [address] [address] PCP - General Internal Medicine 05/06/21 documented as of this encounter
--- OUTSIDE RECORDS SUMMARY | 2025-05-08 17:30 | XMS_ITS | Encounter Summary ---
Author Organization [facility] and [facility] Address [address] [place] [address] Care Team Providers Care Sheet Fed Printer Name Role Phone Caitlyn Bowie MD Primary Care Provider +1- [phone] Encounter Details Date Type Department Care Team (Late st Contact Info) Description 09/09/2020 Scanned Document [facility] Health Information Management [address] [place] [address] External, Provider Social History Tobacco Use Types [...] as of this encounter Care Teams Sheet Fed Printer Relationship Specialty Start Date End Date Caitlyn Bowie MD [address] [address] PCP - General Internal Medicine 05/06/21 documented as of this encounter
--- OUTSIDE RECORDS SUMMARY | 2025-05-08 17:30 | XMS_ITS | Encounter Summary ---
Author Organization [facility] Address [address] [place] [address] Phone Care Team Providers Care Brim Plater Name Role Phone Caitlyn Bowie MD Primary Care Provider +1- [phone] Encounter Details Date Type Department Care Team (Late Contact Info) Description 03/24/2025 Documentation Only [facility] [address] [place] [address] Marina Abdi [address] [place] [address] Social History Tobacco Use Types [...] [facility] [address] [place] [address] Rubén Ashraf MD [address] [place] [address] [place] [address] documented as of this encounter Visit Diagnoses Not on filedocumented in this encounter Care Teams Brim Plater Relationship Specialty Start Date End Date Caitlyn Bowie MD [address] [place], [place] PCP - General Internal Medicine 09/24/24 documented as of this encounter
--- OUTSIDE RECORDS SUMMARY | 2025-05-08 17:30 | XMS_ITS | Patient Health Record ---
Author Organization [facility] Address [address] [place] [address] Care Team Providers Care Retirement Plan Specialist Name Role Phone Shruti Bowieberly Primary Care Provider Cristian Fountain Unavailable [phone] Allergies Allergen (clinical drug ingredient) Drug/Non Drug [...] Status W/U Status Risk Notes Problem Diverticulitis (77390218) Diverticulitis (K57.92) Active confirmed Problem Irritable bowel syndrome characterized by constipation (652030547) Irritable bowel syndrome with constipation (K58.9) Active confirmed Problem Gastroesophageal reflux disease (557092090) GERD (gastroesophageal reflux disease) (K21.9) Active confirmed Plan Of Treatment No Information Insurance Providers Payer Name Payer Address Payer Phone Subscriber Number Group Number Insured Name Patient Relationship to Insured Coverage Start Date Coverage End Date MEDICARE OF [place] [address] [place] [address] [phone] [id number] DANIEL WATSONE Self - patient is the insured [employer] ATTN CLAIMS [address] [place] [address] [id number] DANIEL WATSONE Self - patient is the insured Medical (General) History Medical History History ICD Code SD-04/2021-sees Dr. Cadet--describes a negative cardiac cath Lung [...] a nd Antiphospholipid antibody--has had DVT's and PE's---Database Admin at [place] and Dr. Hogan at [facility] GERD-has had EGD's with Dr. Gomes Pneumomias Hypothyroidism Surgical History Surgery Date(Month/Year) Tonsils and adenoids BOLA Lung cancer-Left lower lobectomy at [facility], XRT, Chemo 2008
--- OUTSIDE RECORDS SUMMARY | 2025-05-08 17:30 | XMS_ITS | Encounter Summary ---
Author Organization [facility] and [facility] Address [address] [place] [address] Care Team Providers Care Assistant Food Service Director Name Role Phone Caitlyn Bowie MD Primary Care Provider +1- [phone] Encounter Details Date Type Department Care Team (Late st Contact Info) Description 04/18/2025 Telephone [facility] [address] [place] [phone] Ronald Mills MD [address] [address] Social History Tobacco Use Types [...] as of this encounter Care Teams Assistant Food Service Director Relationship Specialty Start Date End Date Caitlyn Bowie MD [address] [address] PCP - General Internal Medicine 05/06/21 documented as of this encounter
--- OUTSIDE RECORDS SUMMARY | 2025-05-08 17:30 | XMS_ITS | Encounter Summary ---
Author Organization [facility] and [facility] Address [address] [place] [address] Care Team Providers Care Payment Specialist Name Role Phone Caitlyn Bowie MD Primary Care Provider +1- [phone] Encounter Details Date Type Department Care Team ([facility] st Contact Info) Description 09/16/2020 Scanned Document [facility] Health Information Management [address] [place] [address] External, Provider Social History Tobacco Use Types [...] documented as of this encounter Care Teams Payment Specialist Relationship Specialty Start Date End Date Caitlyn Bowie MD [address] [address] PCP - General Internal Medicine 05/06/21 documented as of this encounter
--- OUTSIDE RECORDS SUMMARY | 2025-05-08 17:30 | XMS_ITS | Encounter Summary ---
Author Organization [facility] and [facility] Address [address] [place] [address] Care Team Providers Care Set Illustrator Name Role Phone Caitlyn Bowie MD Primary Care Provider +1- [phone] Encounter Details Date Type Department Care Team (Late st Contact Info) Description 12/16/2016 Scanned Document [facility] Health Information Management [address] [place] [address] External, Provider Social History Tobacco Use Types [...] as of this encounter Care Teams Set Illustrator Relationship Specialty Start Date End Date Caitlyn Bowie MD 3400 [facility] 1 [place] [address] PCP - General Internal Medicine 05/06/21 Henry Kelly MD Pulmonary Department 175 [facility], [address] [place] [address] Physician Pulmonary Disease 09/06/17 06/22/20 documented as of this encounter
--- OUTSIDE RECORDS SUMMARY | 2025-05-08 17:30 | XMS_ITS | Encounter Summary ---
Author Organization [facility] Address [address] [place] [address] Care Team Providers Care Cinder Block Mason Name Role Phone Caitlyn Bowie MD Primary Care Provider +1- [phone] Encounter Details Date Type Department Care Team (Late st Contact Info) Description 12/16/2016 Scanned Document [facility] Health Information Management [address] [place] [address] External, Provider Social History Tobacco Use [...] MD 3400 [facility] 1 [place] [address] PCP - General Internal Medicine 05/06/21 Henry Kelly MD Pulmonary Department [address] [place] [address], [address] [place] [address] Physician Pulmonary Disease 09/06/17 06/22/20 documented as of this encounter
--- OUTSIDE RECORDS SUMMARY | 2025-05-08 17:30 | XMS_ITS | Encounter Summary ---
Author Organization [facility] Address [address] [place] [address] Care Team Providers Care Hydraulic Lift Operator Name Role Phone Caitlyn Bowie MD Primary Care Provider +1- [phone] Encounter Details Date Type Department Care Team ([facility] st Contact Info) Description 02/02/2017 Scanned Document [facility] Health Information Management [address] [place] [address] External, Provider Social History Tobacco Use Types [...] as of this encounter Care Teams Hydraulic Lift Operator Relationship Specialty Start Date End Date Caitlyn Bowie MD [address] [address] PCP - General Internal Medicine 05/06/21 Henry Kelly MD Pulmonary Department 175 [facility], [address] [place] [address] Physician Pulmonary Disease 09/06/17 06/22/20 documented as of this encounter
--- OUTSIDE RECORDS SUMMARY | 2025-05-08 17:30 | XMS_ITS | Encounter Summary ---
Author Organization [facility] Address [address] [place] [address] Care Team Providers Care Transportation Technician Name Role Phone Caitlyn Bowie MD Primary Care Provider +1- [phone] Encounter Details Date Type Department Care Team (Late st Contact Info) Description 12/16/2016 Scanned Document [facility] Health Information Management [address] [place] [address] External, Provider Social History Tobacco Use Types [...] as of this encounter Care Teams Transportation Technician Relationship Specialty Start Date End Date Caitlyn Bowie MD 3400 [facility] 1 [place] [address] PCP - General Internal Medicine 05/06/21 Henry Kelly MD Pulmonary Department [address] [place] [address], [address] [place] [address] Physician Pulmonary Disease 09/06/17 06/22/20 documented as of this encounter
--- OUTSIDE RECORDS SUMMARY | 2025-05-08 17:30 | XMS_ITS | Encounter Summary ---
Author Organization [facility] Address [address] [place] [address] Care Team Providers Care Urban Design Consultant Name Role Phone Caitlyn Bowie MD Primary Care Provider +1- [phone] Encounter Details Date Type Department Care Team ([facility] st Contact Info) Description 04/18/2013 Documentation [facility] [address] [address] Isis Ragland RN Social History Tobacco Use [...] as of this encounter Care Teams Urban Design Consultant Relationship Specialty Start Date End Date Caitlyn Bowie MD [address] [address] PCP - General Internal Medicine 05/06/21 Henry Kelly MD Pulmonary Department [address] [place] [address] [address] [place] [address] Physician Pulmonary Disease 09/06/17 06/22/20 documented as of this encounter
--- OUTSIDE RECORDS SUMMARY | 2025-05-08 17:30 | XMS_ITS | Encounter Summary ---
Author Organization [facility] Address [address] [place] [address] Care Team Providers Care Respiratory Physician Name Role Phone Caitlyn Bowie MD Primary Care Provider +1- [phone] Encounter Details Date Type Department Care Team (Late st Contact Info) Description 01/22/2020 Scanned Document [facility] [address] [place] [address] Kerwin Menjivar MD 260 [facility] 3 [place] [address] Social History Tobacco Use Types [...] as of this encounter Care Teams Respiratory Physician Relationship Specialty Start Date End Date Caitlyn Bowie MD 3400 [facility] 1 [place] [address] PCP - General Internal Medicine 05/06/21 Henry Kelly MD Pulmonary Department 175 [facility], [address] [place] [address] Physician Pulmonary Disease 09/06/17 06/22/20 documented as of this encounter
--- OUTSIDE RECORDS SUMMARY | 2025-05-08 17:30 | XMS_ITS | Encounter Summary ---
Author Organization [facility] and [facility] Address [address] [place] [address] Care Team Providers Care Radiology Administrator Name Role Phone Caitlyn Bowie MD Primary Care Provider +1- [phone] Encounter Details Date Type Department Care Team ([facility] st Contact Info) Description 12/16/2016 Scanned Document [facility] Health Information Management [address] [place] [address] External, Provider Social History Tobacco Use Types [...] as of this encounter Care Teams Radiology Administrator Relationship Specialty Start Date End Date Caitlyn Bowie MD [address] [address] PCP - General Internal Medicine 05/06/21 Henry Kelly MD Pulmonary Department 175 [facility], [address] [place] [address] Physician Pulmonary Disease 09/06/17 06/22/20 documented as of this encounter
--- OUTSIDE RECORDS SUMMARY | 2025-05-08 17:30 | XMS_ITS | Encounter Summary ---
Author Organization [facility] and [facility] Address [address] [place] [address] Care Team Providers Care Student Records Coordinator Name Role Phone Caitlyn Bowie MD Primary Care Provider +1- [phone] Encounter Details Date Type Department Care Team ([facility] st Contact Info) Description 09/18/2020 Scanned Document [facility] Health Information Management [address] [place] [address] External, Provider Social History Tobacco Use Types [...] End Date Caitlyn Bowie MD [address] [address] PCP - General Internal Medicine 05/06/21 documented as of this encounter
--- OUTSIDE RECORDS SUMMARY | 2025-05-08 17:30 | XMS_ITS | Encounter Summary ---
Author Organization [facility] and [facility] Address [address] [place] [address] Care Team Providers Care Gyro Compass Tester Name Role Phone Caitlyn Bowie MD Primary Care Provider +1- [phone] Encounter Details Date Type Department Care Team (Late st Contact Info) Description 05/19/2020 Scanned Document [facility] at [address] [address] External, Provider Social History Tobacco Use Types [...] documented as of this encounter Care Teams Gyro Compass Tester Relationship Specialty Start Date End Date Caitlyn Bowie MD 3400 [facility] 1 [place] [address] PCP - General Internal Medicine 05/06/21 Henry Kelly MD Pulmonary Department 175 [facility], [address] [place] [address] Physician Pulmonary Disease 09/06/17 06/22/20 documented as of this encounter
--- OUTSIDE RECORDS SUMMARY | 2025-05-08 17:30 | XMS_ITS | Encounter Summary ---
Author Organization [facility] and [facility] Address [address] [place] [address] Care Team Providers Care Car Shakeout Operator Name Role Phone Caitlyn Bowie MD Primary Care Provider +1- [phone] Encounter Details Date Type Department Care Team (Late st Contact Info) Description 09/15/2020 Scanned Document [facility] at [address] [address] External, Provider Social History Tobacco Use Types [...] as of this encounter Care Teams Car Shakeout Operator Relationship Specialty Start Date End Date Caitlyn Bowie MD [address] [address] PCP - General Internal Medicine 05/06/21 documented as of this encounter
--- OUTSIDE RECORDS SUMMARY | 2025-05-08 17:30 | XMS_ITS | Encounter Summary ---
Author Organization [facility] and [facility] Address [address] [place] [address] Care Team Providers Care Foil Cutter Name Role Phone Caitlyn Bowie MD Primary Care Provider +1- [phone] Encounter Details Date Type Department Care Team (Late st Contact Info) Description 12/19/2016 Scanned Document [facility] Health Information Management [address] [place] [address] External, Provider Social History Tobacco Use Types [...] documented as of this encounter Care Teams Foil Cutter Relationship Specialty Start Date End Date Caitlyn Bowie MD 3400 [facility] 1 [place] [address] PCP - General Internal Medicine 05/06/21 Henry Kelly MD Pulmonary Department 175 [facility], [address] [place] [address] Physician Pulmonary Disease 09/06/17 06/22/20 documented as of this encounter
--- OUTSIDE RECORDS SUMMARY | 2025-05-08 17:30 | XMS_ITS | Clinical Summary ---
Author Organization [facility] Address [address] [place] [address] Care Team Providers Care Flight Line Mechanic Name Role Phone Brennan Burnett MD Primary Care Provider [phone] Allergies Active Allergy Reactions Criticality Noted Date [...] age to complete this topic Care Teams Flight Line Mechanic Relationship Specialty Start Date End Date Brennan Burnett MD [address] [place] [address] PCP - General Internal Medicine 07/06/20
--- OUTSIDE RECORDS SUMMARY | 2025-05-08 17:30 | XMS_ITS | Encounter Summary ---
Author Organization [facility] and [facility] Address [address] [place] [address] Care Team Providers Care Paint Prepper Name Role Phone Caitlyn Bowie MD Primary Care Provider +1- [phone] Encounter Details Date Type Department Care Team (Late st Contact Info) Description 05/14/2020 Documentation [facility] [address] [address] Taya Nuno RN Social History Tobacco Use [...] as of this encounter Care Teams Paint Prepper Relationship Specialty Start Date End Date Caitlyn Bowie MD [address] [address] PCP - General Internal Medicine 05/06/21 Henry Kelly MD Pulmonary Department [address] [place] [address], [address] [place] [address] Physician Pulmonary Disease 09/06/17 06/22/20 documented as of this encounter
--- OUTSIDE RECORDS SUMMARY | 2025-05-08 17:30 | XMS_ITS | Encounter Summary ---
Author Organization [facility] and [facility] Address [address] [place] [address] Care Team Providers Care Cloth Handler Name Role Phone Caitlyn Bowie MD Primary Care Provider +1- [phone] Encounter Details Date Type Department Care Team (Late st Contact Info) Description 12/16/2016 Scanned Document [facility] Health Information Management [address] [place] [address] External, Provider Social History Tobacco Use Types [...] as of this encounter Care Teams Cloth Handler Relationship Specialty Start Date End Date Caitlyn Bowie MD 3400 [facility] 1 [place] [address] PCP - General Internal Medicine 05/06/21 Henry Kelly MD Pulmonary Department 175 [facility], [address] [place] [address] Physician Pulmonary Disease 09/06/17 06/22/20 documented as of this encounter
--- OUTSIDE RECORDS SUMMARY | 2025-05-08 17:30 | XMS_ITS | Encounter Summary ---
Author Organization [facility] Address [address] [place] [address] Care Team Providers Care Delinquent Tax Collector Assistant Name Role Phone Caitlyn Bowie MD Primary Care Provider +1- [phone] Encounter Details Date Type Department Care Team (Late st Contact Info) Description 09/07/2020 Scanned Document Cardiovascular Medicine at 175 [facility] 175 [facility] THIRD FLOOR [place], [place] [address] Norma Renee MD [address] [place] [phone] Social History Tobacco Use Types Packs/Day Years [...] documented as of this encounter Care Teams Delinquent Tax Collector Assistant Relationship Specialty Start Date End Date Caitlyn Bowie MD [address] [address] PCP - General Internal Medicine 05/06/21 documented as of this encounter
--- OUTSIDE RECORDS SUMMARY | 2025-05-08 17:30 | XMS_ITS | Encounter Summary ---
Author Organization [facility] and [facility] Address [address] [place] [address] Care Team Providers Care Cpo Name Role Phone Caitlyn Bowie MD Primary Care Provider +1- [phone] Encounter Details Date Type Department Care Team (Late st Contact Info) Description 02/20/2017 Scanned Document [facility] Health Information Management [address] [place] [address] External, Provider Social History Tobacco Use Types [...] documented as of this encounter Care Teams Cpo Relationship Specialty Start Date End Date Caitlyn Bowie MD 3400 [facility] 1 [place] [address] PCP - General Internal Medicine 05/06/21 Henry Kelly MD Pulmonary Department 175 [facility], [address] [place] [address] Physician Pulmonary Disease 09/06/17 06/22/20 documented as of this encounter
--- OUTSIDE RECORDS SUMMARY | 2025-05-08 17:30 | XMS_ITS | Encounter Summary ---
Author Organization [facility] and [facility] Address [address] [place] [address] Care Team Providers Care Duralumin Metalworker Name Role Phone Caitlyn Bowie MD Primary Care Provider +1- [phone] Encounter Details Date Type Department Care Team (Late st Contact Info) Description 09/15/2020 Scanned Document INTERFACE DEFAULT [address] [place] [address] System, Provider Not In Social History Tobacco [...] as of this encounter Care Teams Duralumin Metalworker Relationship Specialty Start Date End Date Caitlyn Bowie MD [address] [address] PCP - General Internal Medicine 05/06/21 documented as of this encounter
--- OUTSIDE RECORDS SUMMARY | 2025-05-08 17:30 | XMS_ITS | Encounter Summary ---
Author Organization [facility] and [facility] Address [address] [place] [address] Care Team Providers Care Internal Security Manager Name Role Phone Caitlyn Bowie MD Primary Care Provider +1- [phone] Encounter Details Date Type Department Care Team ([facility] st Contact Info) Description 07/08/2020 Scanned Document [facility] Health Information Management [address] [place] [address] External, Provider Social History Tobacco Use Types [...] as of this encounter Care Teams Internal Security Manager Relationship Specialty Start Date End Date Caitlyn Bowie MD [address] [address] PCP - General Internal Medicine 05/06/21 documented as of this encounter
--- OUTSIDE RECORDS SUMMARY | 2025-05-08 17:30 | XMS_ITS | Encounter Summary ---
Author Organization [facility] Address [address] [place] [address] Care Team Providers Care Swimming Coach Name Role Phone Caitlyn Bowie MD Primary Care Provider +1- [phone] Encounter Details Date Type Department Care Team (Late st Contact Info) Description 02/20/2017 Scanned Document [facility] Health Information Management [address] [place] [address] External, Provider Social History Tobacco Use Types [...] as of this encounter Care Teams Swimming Coach Relationship Specialty Start Date End Date Caitlyn Bowie MD [address] [facility] 1 [place] [address] PCP - General Internal Medicine 05/06/21 Henry Kelly MD Pulmonary Department 175 [facility], [address] [place] [address] Physician Pulmonary Disease 09/06/17 06/22/20 documented as of this encounter
--- OUTSIDE RECORDS SUMMARY | 2025-05-08 17:30 | XMS_ITS | Encounter Summary ---
Author Organization [facility] and [facility] Address [address] [place] [address] Care Team Providers Care Title Manager Name Role Phone Caitlyn Bowie MD Primary Care Provider +1- [phone] Encounter Details Date Type Department Care Team (Late st Contact Info) Description 12/16/2016 Scanned Document [facility] Health Information Management [address] [place] [address] External, Provider Social History Tobacco Use Types [...] as of this encounter Care Teams Title Manager Relationship Specialty Start Date End Date Caitlyn Bowie MD 3400 [facility] 1 [place] [address] PCP - General Internal Medicine 05/06/21 Henry Kelly MD Pulmonary Department 175 [facility], [address] [place] [address] Physician Pulmonary Disease 09/06/17 06/22/20 documented as of this encounter
--- OUTSIDE RECORDS SUMMARY | 2025-05-08 17:31 | XMS_ITS | Encounter Summary ---
Author Organization [facility] Address [address] [place] [address] Care Team Providers Care Computational Sciences Professor Name Role Phone Caitlyn Bowie MD Primary Care Provider +1- [phone] Encounter Details Date Type Department Care Team (Late st Contact Info) Description 06/27/2019 Scanned Document [facility] at [address] [place] [address] Norma Renee MD [address] [place] [address] 2 [place] [phone] Social History Tobacco Use Types Packs/Day Years [...] documented as of this encounter Care Teams Computational Sciences Professor Relationship Specialty Start Date End Date Caitlyn Bowie MD 3400 [facility] 1 [place] [address] PCP - General Internal Medicine 05/06/21 Henry Kelly MD Pulmonary Department 175 [facility], [address] [place] [address] Physician Pulmonary Disease 09/06/17 06/22/20 documented as of this encounter
--- OUTSIDE RECORDS SUMMARY | 2025-05-08 17:31 | XMS_ITS | Encounter Summary ---
Author Organization [facility] and [facility] Address [address] [place] [address] Care Team Providers Care Lay Health Advocate Name Role Phone Caitlyn Bowie MD Primary Care Provider +1- [phone] Encounter Details Date Type Department Care Team ([facility] st Contact Info) Description 04/10/2021 Scanned Document INTERFACE DEFAULT [address] [place] [address] System, Provider Not In Social History Tobacco [...] as of this encounter Care Teams Lay Health Advocate Relationship Specialty Start Date End Date Caitlyn Bowie MD [facility] [address] [address] PCP - General Internal Medicine 05/06/21 documented as of this encounter
--- OUTSIDE RECORDS SUMMARY | 2025-05-08 17:31 | XMS_ITS | Encounter Summary ---
Author Organization [facility] and [facility] Address [address] [place] [address] Care Team Providers Care Gis Coordinator Name Role Phone Caitlyn Bowie MD Primary Care Provider +1- [phone] Encounter Details Date Type Department Care Team ([facility] st Contact Info) Description 07/26/2012 Abstract [facility] Health Information Management [address] [place] [address] [place], Primary Care [address] [place] [phone] Social History Tobacco Use Types Packs/Day Years [...] documented as of this encounter Care Teams Gis Coordinator Relationship Specialty Start Date End Date Caitlyn Bowie MD 3400 [facility] 1 [place] [address] PCP - General Internal Medicine 05/06/21 Henry Kelly MD Pulmonary Department [address] [place] [address], [address] [place] [address] Physician Pulmonary Disease 09/06/17 06/22/20 documented as of this encounter
--- OUTSIDE RECORDS SUMMARY | 2025-05-08 17:31 | XMS_ITS | Encounter Summary ---
Author Organization [facility] and [facility] Address [address] [place] [address] Care Team Providers Care Patient Case Coordinator Name Role Phone Caitlyn Bowie MD Primary Care Provider +1- [phone] Encounter Details Date Type Department Care Team ([facility] st Contact Info) Description 04/11/2021 Scanned Document INTERFACE DEFAULT [address] [place] [address] System, Provider Not In Social History Tobacco [...] as of this encounter Care Teams Patient Case Coordinator Relationship Specialty Start Date End Date Caitlyn Bowie MD [address] [address] PCP - General Internal Medicine 05/06/21 documented as of this encounter
--- OUTSIDE RECORDS SUMMARY | 2025-05-08 17:31 | XMS_ITS | Encounter Summary ---
Author Organization [facility] Address [address] [place] [address] Care Team Providers Care Fitter / Welder Name Role Phone Caitlyn Bowie MD Primary Care Provider +1- [phone] Encounter Details Date Type Department Care Team (Late st Contact Info) Description 11/26/2019 Scanned Document Cancer Center at [address] [address] External, Provider Social History Tobacco Use Types [...] Caitlyn Bowie MD 3400 [facility] 1 [place] [address] PCP - General Internal Medicine 05/06/21 Henry Kelly MD Pulmonary Department 175 [facility], [address] [place] [address] Physician Pulmonary Disease 09/06/17 06/22/20 documented as of this encounter
--- OUTSIDE RECORDS SUMMARY | 2025-05-08 17:31 | XMS_ITS | Encounter Summary ---
Author Organization [facility] Address [address] [place] [address] Care Team Providers Care Game Design Instructor Name Role Phone Caitlyn Bowie MD Primary Care Provider +1- [phone] Encounter Details Date Type Department Care Team (Late st Contact Info) Description 04/26/2017 Scanned Document Cardiovascular Medicine at [address] [address] System, Provider Not In Social History Tobacco [...] as of this encounter Care Teams Game Design Instructor Relationship Specialty Start Date End Date Caitlyn Bowie MD 3400 [facility] 1 [place] [address] PCP - General Internal Medicine 05/06/21 Henry Kelly MD Pulmonary Department 175 [facility], [address] [place] [address] Physician Pulmonary Disease 09/06/17 06/22/20 documented as of this encounter
--- OUTSIDE RECORDS SUMMARY | 2025-05-08 17:31 | XMS_ITS | Encounter Summary ---
Author Organization [facility] and [facility] Address [address] [place] [address] Care Team Providers Care Content Developer Name Role Phone Caitlyn Bowie MD Primary Care Provider +1- [phone] Encounter Details Date Type Department Care Team ([facility] st Contact Info) Description 04/16/2021 Scanned Document INTERFACE DEFAULT [address] [place] [address] System, Provider Not In Social History Tobacco [...] as of this encounter Care Teams Content Developer Relationship Specialty Start Date End Date Caitlyn Bowie MD [address] [address] PCP - General Internal Medicine 05/06/21 documented as of this encounter
--- OUTSIDE RECORDS SUMMARY | 2025-05-08 17:31 | XMS_ITS | Encounter Summary ---
Author Organization [facility] Address [address] [place] [address] Care Team Providers Care Extruder Operator Vertical Name Role Phone Caitlyn Bowie MD Primary Care Provider +1- [phone] Encounter Details Date Type Department Care Team (Late st Contact Info) Description 08/29/2019 Scanned Document Cancer Center at [address] [address] External, Provider Social History Tobacco Use Types [...] documented as of this encounter Care Teams Extruder Operator Vertical Relationship Specialty Start Date End Date Caitlyn Bowie MD 3400 [facility] 1 [place] [address] PCP - General Internal Medicine 05/06/21 Henry Kelly MD Pulmonary Department 175 [facility], [address] [place] [address] Physician Pulmonary Disease 09/06/17 06/22/20 documented as of this encounter
--- OUTSIDE RECORDS SUMMARY | 2025-05-08 17:31 | XMS_ITS | Encounter Summary ---
Author Organization [facility] and [facility] Address [address] [place] [address] Care Team Providers Care Energy And Conservation Technician Name Role Phone Caitlyn Bowie MD Primary Care Provider +1- [phone] Encounter Details Date Type Department Care Team (Late st Contact Info) Description 04/11/2021 Scanned Document [facility] Health Information Management [address] [place] [address] External, Provider Social History Tobacco Use Types [...] as of this encounter Care Teams Energy And Conservation Technician Relationship Specialty Start Date End Date Caitlyn Bowie MD [address] [address] PCP - General Internal Medicine 05/06/21 documented as of this encounter
--- OUTSIDE RECORDS SUMMARY | 2025-05-08 17:31 | XMS_ITS | Encounter Summary ---
Author Organization [facility] Address [address] [place] [address] Care Team Providers Care Armed Security Professional Name Role Phone Caitlyn Bowie MD Primary Care Provider +1- [phone] Encounter Details Date Type Department Care Team (Late st Contact Info) Description 03/01/2017 Scanned Document [facility] at [address] [place] [address] Norma Renee MD [address] [place] [address] 2 [place] [phone] Social History Tobacco Use Types Packs/Day Years [...] documented as of this encounter Care Teams Armed Security Professional Relationship Specialty Start Date End Date Caitlyn Bowie MD [address] [address] PCP - General Internal Medicine 05/06/21 Henry Kelly MD Pulmonary Department [address] [place] [address], [address] [place] [address] Physician Pulmonary Disease 09/06/17 06/22/20 documented as of this encounter
--- OUTSIDE RECORDS SUMMARY | 2025-05-08 17:31 | XMS_ITS | Encounter Summary ---
Author Organization [facility] Address [address] [place] [address] Care Team Providers Care Civil Preparedness Officer Name Role Phone Caitlyn Bowie MD Primary Care Provider +1- [phone] Encounter Details Date Type Department Care Team ([facility] st Contact Info) Description 04/13/2021 Scanned Document INTERFACE DEFAULT [address] [place] [address] System, Provider Not In Social History Tobacco [...] as of this encounter Care Teams Civil Preparedness Officer Relationship Specialty Start Date End Date Caitlyn Bowie MD [address] [address] PCP - General Internal Medicine 05/06/21 documented as of this encounter
--- OUTSIDE RECORDS SUMMARY | 2025-05-08 17:31 | XMS_ITS | Encounter Summary ---
Author Organization [facility] Address [address] [place] [address] Care Team Providers Care Campground Caretaker Name Role Phone Caitlyn Bowie MD Primary Care Provider +1- [phone] Encounter Details Date Type Department Care Team ([facility] st Contact Info) Description 04/22/2021 Scanned Document INTERFACE DEFAULT [address] [place] [address] System, Provider Not In Social History Tobacco [...] documented as of this encounter Care Teams Campground Caretaker Relationship Specialty Start Date End Date Caitlyn Bowie MD [address] [address] PCP - General Internal Medicine 05/06/21 documented as of this encounter
--- OUTSIDE RECORDS SUMMARY | 2025-05-08 17:31 | XMS_ITS | Encounter Summary ---
Author Organization [facility] Address [address] [place] [address] Phone Care Team Providers Care Mechanical Designer Name Role Phone Caitlyn Bowie MD Primary Care Provider +1- [phone] Encounter Details Date Type Department Care Team (Late Contact Info) Description 12/10/2024 Documentation Only [facility] [address] [place] [address] Marina Abdi [address] [place] [address] Social History Tobacco Use Types [...] Visit [facility] [address] [place] [place] [address] Rubén Ashraf MD [address] [place] [address] [place] [address] documented as of this encounter Visit Diagnoses Not on filedocumented in this encounter Care Teams Mechanical Designer Relationship Specialty Start Date End Date Caitlyn Bowie MD [address]00 [place], [place] PCP - General Internal Medicine 09/24/24 documented as of this encounter
--- OUTSIDE RECORDS SUMMARY | 2025-05-08 17:31 | XMS_ITS | Encounter Summary ---
Author Organization [facility] Address [address] [place] [address] Phone Care Team Providers Care Coupler Name Role Phone Caitlyn Bowie MD Primary Care Provider +1- [phone] Encounter Details Date Type Department Care Team (Late Contact Info) Description 12/10/2024 Documentation Only [facility] [address] [place] [address] Marina Abdi [address] [place] [address] Social History Tobacco Use Types [...] Visit [facility] [address] [place] [address] Rubén Ashraf MD [address] [place] [address] [place] [address] documented as of this encounter Visit Diagnoses Not on filedocumented in this encounter Care Teams Coupler Relationship Specialty Start Date End Date Caitlyn Bowie MD 3400 [place], [place] PCP - General Internal Medicine 09/24/24 documented as of this encounter
--- OUTSIDE RECORDS SUMMARY | 2025-05-08 17:31 | XMS_ITS | Encounter Summary ---
Author Organization [facility] Address [address] [place] [address] Care Team Providers Care Optimization Engineer Name Role Phone Caitlyn Bowie MD Primary Care Provider +1- [phone] Encounter Details Date Type Department Care Team (Late st Contact Info) Description 01/28/2013 Scanned Document Thoracic Oncology Program at [address] [address] Solo Henry MD [address] [place] [phone] Social History Tobacco Use Types Packs/Day [...] documented as of this encounter Care Teams Optimization Engineer Relationship Specialty Start Date End Date Caitlyn Bowie MD [address] [phone] PCP - General Internal Medicine 05/06/21 Henry Kelly MD Pulmonary Department [address] [place] [address], [address] [place] [address] Physician Pulmonary Disease 09/06/17 06/22/20 documented as of this encounter
--- OUTSIDE RECORDS SUMMARY | 2025-05-08 17:31 | XMS_ITS | Encounter Summary ---
Author Organization [facility] and [facility] Address [address] [place] [phone] Care Team Providers Care Steel Unloader Name Role Phone Caitlyn Bowie MD Primary Care Provider +1- [phone] Encounter Details Date Type Department Care Team ([facility] st Contact Info) Description 08/21/2017 Scanned Document [facility] Health Information Management [address] [place] [id number] External, Provider Social History Tobacco Use Types [...] as of this encounter Care Teams Steel Unloader Relationship Specialty Start Date End Date Caitlyn Bowie MD [address] [place] [address] PCP - General Internal Medicine 05/06/21 Henry Kelly MD Pulmonary Department [address] [facility], [address] [place] [address] Physician Pulmonary Disease 09/06/17 06/22/20 documented as of this encounter
--- OUTSIDE RECORDS SUMMARY | 2025-05-08 17:31 | XMS_ITS | Encounter Summary ---
Author Organization [facility] Address [address] [place] [phone] Care Team Providers Care Gin Pole Operator Name Role Phone Caitlyn Bowie MD Primary Care Provider +1- [phone] Encounter Details Date Type Department Care Team (Latest Contact Info) Description 04/15/2013 Transcribed Orders [facility] [address] [place] [address] Tain Atwood MD [address] [place] [phone] Unspecified hypothyroidism (Primary Dx) Social History [...] on file documented as of this encounter Results * Copper, serum total (YH) (04/15/2013 4:31 PM EDT) Copper, Serum Total SEE BELOW [facility] Comment: Test Result Flag Unit RefValue Copper, S 1.35 mcg/mL 0.75-1.45 04/15/2013 4:31 PM EDT us Tian Atwood MD LAB BLOOD ORDERABLES Final R esult Performing Organization Address City/State/[facility] Co de Phone Number [facility] [address] [place] [phone] documented in this encounter Visit Diagnoses Diagnosis Unspecified hypothyroidism- Primary documented in this encounter Additional Health Concerns Infection Onset Date Last Indicated Resolved Time COVID-19 03/05/2022 03/05/2022 03/15/2022 7:18 PM EDT documented as of this encounter Care Teams Gin Pole Operator Relationship Specialty Start Date End Date Caitlyn Bowie MD [address] [facility] [address] [place] [address] PCP - General Internal Medicine 05/06/21 Henry Kelly MD Pulmonary Department [address] [facility], [address] [place] [address] Physician Pulmonary Disease 09/06/17 06/22/20 documented as of this encounter
--- OUTSIDE RECORDS SUMMARY | 2025-05-08 17:31 | XMS_ITS | Clinical Summary ---
Author Organization 175 [facility] Address [address] [place] [address] Phone Care Team Providers Care Manager Applied Name Role Phone Caitlyn Bowie MD Primary Care Provider [phone] Allergies Active Allergy Reactions Criticality Noted Date [...] 20 mg as needed by her previous brine room laborer which she has taken sporadically. I have asked her to take this daily to see if this improves her symptoms and she has a follow-up appointment with Dr. Shah on September 16 which she will keep. We also had a long conversation regarding the fact that she is seeing 3 different brine room laborer for the same problems. We informed her [...] continues to see Dr. Avalos or her brine room laborer at [facility]. She verbalized understanding of this and [...] 12/24/2018 Adrenal insufficiency ([facility] V24) 08/23/2018 Allergic rhinitis 08/23/2018 Hyperparathyroidism ([facility] V24) 08/23/2018 MRSA infection 08/23/2018 Overview (05/16/2024): 06/2009, s/p thoracotomy infection Osteoarthritis 08/23/2018 Radiation-induced pulmonary fibrosis ([facility] V2 4) 11/13/2017 Bronchiectasis ([facility] V24, [facility] V28) 2017 Leg edema 08/08/2017 Restrictive lung disease 08/08/2017 Chronic obstructive pulmonar y disease ([facility] V24, [facility] V28) 04/13/2017 Fibromyalgia 04/13/2017 Congestive heart failure ([facility] V24, [facility] V 28) 04/04/2017 Heterozygous factor V Leiden mutation ([facility] V 24) 04/04/2017 Obstructive sleep apnea syndrome 04/04/2017 Overview (05/16/2024): CPAP Pleural effusion 04/04/2017 Pulmonary hypertension ([facility] V24, [facility] V28 ) 04/04/2017 Multiple pulmonary [...] Team Description 04/14/2025 10:00 AM EDT Evaluation [address] [phone] Bruno Moreno, PT Gait abnormality (Primary Dx); Cerebral lesion 04/14/2025 Plan of Care Documentation [facility] 175 [facility] [address] [place] [phone] 04/11/2025 Telephone Gastroenterology - [address] [place] [phone] Tim Gomes MD 03/20/2025 11:40 AM EDT Office Visit [facility] 175 [facility] [address] [place] [phone] Ayanna Jaffe MD Optic neuritis (Primary Dx); White matter lesion of central nervous system; Blurry vision 02/24/2025 Telephone Gastroenterology - 299 [facility] 299 [facility] [address] [place] [phone] Tim Gomes MD 02/23/2025 11:40 AM EDT - 02/23/2025 4:22 PM EDT Emergency [facility] Emergency [address] [place] [phone] Celia Snider DO Diverticulitis (Primary Dx) Discharge Disposition: Home or Self Care 02/21/2025 4:30 PM EDT Office Visit [address] [phone] Shirley Chaidez PA Optic neuritis (Primary Dx) [...] disease (CMS/HCC V24, [facility] V28) 04/13/2017 DX:Chronic obstructive pulm [...] V Leiden mutation ([facility] V24) 04/04/2017 DX:Heterozygous factor V [...] oncussion syndrome Pulmonary hypertension ([facility] V24, [facility] V28) 04/04/2017 DX:Pulmonary hypertension (H CC) Restrictive lung disease 08/08/2017 DX:Rest rictive lung disease 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 DX:Zinc deficien cy Obstructive sleep apnea syndrome 04/04/2017 DX:Obstructive sleep apnea syndrome; COMMENT: CPAP Radiation-induced pulmonary fibrosis ([facility] V24) 11/13/2017 DX:Radiation-induced pulmona ry fibrosis (HCC) Adrenal insufficiency ([facility] V24) 08/23/2018 DX:Adrenal insufficiency (HCC) Hyperparathyroidism ([facility] V24) 08/23/2018 DX:Hyperparathyroidism (HCC) Osteoporosis 11/17/2016 DX:Osteoporosis [...] Mx LLL resection, Chemo, RT, Cisplatin, Vinorelbine [phone] Antiphospholipid antibody sy ndrome ([facility] V24) 12/24/2018 DX:Antiphospholipid antibody syndrome (HCC) 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 Hyperparathyroidism ([facility] V24) DX:Hyperparathyroidism (HCC) Adrenal insufficiency ([facility] V24) DX:Adrenal insufficiency (HCC) Family History Medical [...] Info) Description 05/12/2025 1:45 PM EST Treatment [address] [phone] Gene Marshall PTA 05/14/2025 9:45 AM EST Treatment [facility] [address] [phone] Bruno Moreno, PT [address] [place] [address] 05/19/2025 10:30 AM EST Treatment [address] [phone] Bruno Moreno, PT [address] [place] [address] 05/21/2025 10:15 AM EST Treatment [address] [phone] Gene Marshall, TAXATION ECONOMIST 05/26/2025 10:30 AM EST Treatment [address] [phone] Bruno Moreno, PT [address] [place] [address] 05/28/2025 1:30 PM EST Treatment [address] [phone] Gene Marshall, TAXATION ECONOMIST 05/29/2025 3:00 PM EST Office Visit [address] [phone] Ayanna Jaffe MD [address] [place] [address] 06/02/2025 10:30 AM EST Treatment [address] [phone] Bruno Moreno, PT [address] [place] [address] 06/04/2025 10:15 AM EST Treatment [address] [phone] Bruno Moreno, PT [address] [place] [address] Health Maintenance Due Date Last Done Comments [...] 4/5 L PT LTG 16 visits from [facility] on 04/14/2025 General Bruno Kaur, PT [...] central nervous system Blurry vision NEUROMYELITIS OPTICA, [id number] Routine 03/20/2025 12:31 PM EDT Optic neuritis [...] [facility] - 03/25/2025 1:05 AM EDT Test(s) 995804-[id number] Antibody, Cell-based IFA was developed and its performance characteristics determined by [facility]. It has not been cleared or approved by the Food and Drug Administration. Performed at: [address] [id number] Speech Assistant: Melissa Wetzel MD, Phone: [phone] Ayanna Jaffe MD LAB BLOOD ORDERABLES Fin al Result Performing Organization Address [facility] de Phone Number [facility] * Neuromyelitis optica, [id number] (03/20/2025 12:31 PM EDT) [facility] NMO IgG Autoantibodies <1.5 0.0 - 3.0 U/mL 03/24/2025 3:05 PM EDT [facility] Comment: Negative: 0.0 - 3.0 Positive: >3.0 Blood Venous blood specimen / Unknown Venipuncture / Unknown 03/20/2025 12:31 PM EDT 03/20/2025 12:[address] [facility] - 03/24/2025 3:05 PM EDT Performed at: [address] [id number] Speech Assistant: Melissa Wetzel MD, Phone: [phone] Ayanna Jaffe MD LAB BLOOD ORDERABLES Fin al Result Performing Organization Address [facility] de Phone Number [facility] * (ABNORMAL) CBC auto differential (03/20/2025 12:31 PM EDT) Only the most recent of2 resultswithin the time period is included. [facility] WBC 11.0(H) 4.8 - 10.8 K/mcL LAB HEMETOLOGY METHOD 03/20/2025 2:23 PM EDT [facility] RBC 3.50(L) 3.80 - 4.80 M/mcL LAB HEMETOLOGY METHOD 03/20/2025 2:23 PM EDT [facility] Hemoglobin 11.5 11.5 - 16.0 g/dL LAB HEMETOLOGY METHOD 03/20/2025 2:23 PM EDT [facility] Hematocrit 36.7 35.0 - 47.0 % LAB [facility]OLOGY [facility] MCV 105.2(H) 79.0 - 98.0 FL LAB HEMETOLOGY METHOD 03/20/2025 2:23 PM EDT [facility] MCH 33.0(H) 27.0 - 32.0 pcg LAB HEMETOLOGY METHOD 03/20/2025 2:23 PM [facility] MCHC 31.3(L) 32.0 - 37.0 g/dL LAB HEMETOLOGY METHOD 03/20/2025 2:23 PM [facility] RDW 14.1 11.0 - 15.0 % LAB HEMETOLOGY METHOD 03/20/2025 2:23 PM EDT [facility] Platelets 243 130 - 400 K/mcL LAB HEMETOLOGY METHOD 03/20/2025 2:23 PM [facility] MPV 11.3(H) 7.0 - 11.0 FL LAB HEMETOLOGY METHOD 03/20/2025 2:23 PM [facility] NRBC 0.2 <1.0 % LAB HEMETOLOGY METHOD 03/20/2025 2:23 PM EDT [facility] NRBC Absolute 0.02 <0.10 K/mcL LAB HEMETOLOGY METHOD 03/20[facility]2025 [facility] Neutrophils Relative 75.9 % LAB HEMETOLOGY METHOD 03/20/2025 2:[facility] Lymphocytes Relative 8.7 % LAB HEMETOLOGY METHOD 03/20/2025 2:[facility] Monocytes Relative 12.2 % LAB HEMETOLOGY METHOD 03/20/2025 2:23 PM EDT [facility] Eosinophils Relative 0.7 % LAB HEMETOLOGY METHOD 03/20/2025 2:23 PM EDT [facility] Basophils Relative 0.7 % LAB HEMETOLOGY METHOD 03/20/2025 2:23 PM EDT [facility] Immature Granulocytes Relative 1.8 % LAB HEMETOLOGY METHOD 03/20/2025 2:23 PM EDT [facility] Neutrophils Absolute 8.36(H) 1.50 - 7.00 K/mcL LAB HEMETOLOGY METHOD 03/20/2025 2:23 PM EDT [facility] Lymphocytes Absolute 0.96(L) 1.00 - 5.00 K/mcL LAB HEMETOLOGY METHOD 03/20/2025 2:23 PM EDT [facility] Monocytes Absolute 1.34(H) 0.20 - 1.00 K/mcL LAB HEMETOLOGY METHOD 03/20/2025 2:23 PM EDT [facility] Eosinophils Absolute 0.08 0.00 - 0.50 K/mcL LAB HEMETOLOGY METHOD 03/20/2025 2:23 PM EDT [facility] Basophils Absolute 0.08 0.00 - 0.20 K/mcL LAB HEMETOLOGY METHOD 03/20/2025 2:23 PM EDT [facility] Immature Granulocytes Absolute 0.20(H) 0.00 - 0.03 K/mcL LAB HEMETOLOGY METHOD 03/20/2025 2:23 PM EDT [facility] Blood Venous blood specimen / Unknown Venipuncture / Unknown 03/20/2025 12:31 PM EDT 03/20/2025 12:31 PM EDT Ayanna Jaffe MD LAB BLOOD ORDERABLES Fin al Result [facility] [address] [place] [address], [place] [phone] * Sedimentation rate (03/20/2025 12:31 PM EDT) Sed Rate 25 0 - 30 mm/hr LAB HEMETOLOGY METHOD 03/20/2025 2:14 PM EDT [facility] Blood Venous blood specimen / Unknown Venipuncture / Unknown 03/20/2025 12:31 PM EDT 03/20/2025 12:31 PM EDT Ayanna Jaffe MD LAB BLOOD ORDERABLES Fin al Result Performing Organization Address [facility]/State/ZIP Co de Phone Number [facility] [address] [place] [address], [place] [phone] * ECG-Annotated (02/24/2025) Provider Onbase MD ECG ORDERABLES Final Result * CT Head wo Contrast (02/23/2025 2:53 PM EDT) Anatomical Region Laterality Modality Head and Neck Computed Tomogra phy 02/23/2025 2:57 PM EDT Impressions 02/23/2025 3:01 PM EDT Impression: No acute hemorrhage or intracranial mass effect. No significant change. Telerad PA ([id number]) -------- FINAL REPORT -------- Dictated By: Fawn Levin Dictated Date: 02/23/2025 14:57 ET Assigned Physician: Fawn Levin Reviewed and Electronically Signed By: Fawn Levin Signed Date: 02/23/2025 15:01 ET Workstation ID: [id number] Transcribed By: Self Edit Transcribed Date: 02/23/2025 [...] mass effect. No significant change. Telekarla KAPOOR ([id number]) -------- FINAL REPORT -------- Dictated By: Fawn Levin Dictated Date: 02/23/2025 14:57 ET Assigned Physician: Fawn Levin Reviewed and Electronically Signed By: Fawn Levin Signed Date: 02/23/2025 15:01 ET Workstation ID: [id number] Transcribed By: Self Edit Transcribed Date: 02/23/2025 [...] appropriate, to exclude this possibility. Telekarla KAPOOR ([id number]) -------- FINAL REPORT -------- Dictated By: Fawn Levin Dictated Date: 02/23/2025 15:01 ET Assigned Physician: Fawn Levin Reviewed and Electronically Signed By: Fawn Levin Signed Date: 02/23/2025 15:05 ET Workstation ID: [id number] Transcribed By: Self Edit Transcribed Date: 02/23/2025 15:01 ET Narrative 02/23/2025 3:05 PM EDT History: Left lower quadrant abdominal pain. Comparison: 08/23/23 Technique: Helical volumetric imaging of the abdomen and pelvis was performed without intravenous or oral contrast. DLP: 480.07 mGy/cm SoapetspeMithridion VCT Iterative reconstruction technique Findings: Chronic pleural-parenchymal [...] intravenous or oral contrast. DLP: 480.07 mGy/cm SoapetspeMithridion VCT Iterative reconstruction technique Findings: Chronic pleural-parenchymal [...] appropriate, to exclude this possibility. Telekarla KAPOOR ([id number]) -------- FINAL REPORT -------- Dictated By: Fawn Levin Dictated Date: 02/23/2025 15:01 ET Assigned Physician: Fawn Levin Reviewed and Electronically Signed By: Fawn Levin Signed Date: 02/23/2025 15:05 ET Workstation ID: [id number] Transcribed By: Self Edit Transcribed Date: 02/23/2025 15:01 ET us Afsaneh KAPOOR IMG CT PROCEDURES Final Resu lt * Lactate, with reflex (02/23/2025 2:25 PM EDT) LACTIC ACID 1.1 0.4 - 2.0 mmol/L LAB CHEMISTRY METHOD 02/23/2025 3:25 PM EDT [facility] Blood Venous blood specimen / Unknown Venipuncture / Unknown 02/23/2025 2:25 PM EDT 02/23/2025 2:35 PM EDT us Afsaneh KAPOOR LAB BLOOD ORDERABLES Final R esult Performing Organization Address City/[facility] Co de Phone Number [facility] [address] [place] [address], [place] [phone] * Blood Culture, Peripheral Draw #2 (02/23/2025 2:25 PM EDT) Only the most recent of2 resultswithin the time period is included. Pathologist [facility] Culture, Blood No growth at 5 days 02/28/2025 3:01 PM EDT [facility] Blood Venous blood specimen / Unknown Venipuncture / Unknown 02/23/2025 2:25 PM EDT 02/23/2025 2:35 PM EDT Afsaneh KAPOOR LAB MICROBIOLOGY - GENERAL O RDERABLES Final Result Performing Organization Address City/[facility]/ZIP Co de Phone Number [facility] [address] [place] [address], [place] [phone] * XR Chest 1 View (02/23/2025 2:15 PM EDT) Anatomical Region Laterality Modality Body Radiographic Monserrat ging 02/23/2025 2:33 PM EDT Impressions 02/23/2025 2:37 PM EDT Impression: Stable radiographic appearance of the chest, including volume loss and chronic pleural-parenchymal opacity in the left hemithorax consistent with previously treated lung carcinoma. No acute process identified. Telerad PA ([id number]) -------- FINAL REPORT -------- Dictated By: Fawn Levin Dictated Date: 02/23/2025 14:33 ET Assigned Physician: Fawn Levin Reviewed and Electronically Signed By: Fawn Levin Signed Date: 02/23/2025 14:37 ET Workstation ID: [id number] Transcribed By: Self Edit Transcribed Date: 02/23/2025 14:33 ET Narrative 02/23/2025 2:37 PM EDT History: Dyspnea. Personal history of lung carcinoma. Comparison: 07/30/23, thoracic CT 09/09/24 [place], [place] Findings: Portable AP upright chest at [...] lung carcinoma. Comparison: 07/30/23, thoracic CT 09/09/24 [place], [place] Findings: Portable AP upright chest at [...] carcinoma. No acute process identified. Telerad PA ([id number]) -------- FINAL REPORT -------- Dictated By: Fawn Levin Dictated Date: 02/23/2025 14:33 ET Assigned Physician: Fawn Levin Reviewed and Electronically Signed By: Fawn Levin Signed Date: 02/23/2025 14:37 ET Workstation ID: [id number] Transcribed By: Self Edit Transcribed Date: 02/23/2025 14:33 ET Afsaneh KAPOOR IMG XR PROCEDURES Final Resu lt * Urinalysis with reflex microscopic and culture (02/23/2025 2:04 PM EDT) Pathologist [facility] Specific [place] Urine 1.006 1.003 - 1.030 LAB URINALYSIS - AUTOMATED METHOD 02/23/2025 2:17 PM EDT [facility] pH, Urine 7.5 5.0 - 8.0 pH LAB URINALYSIS - AUTOMATED METHOD 02/23/2025 2:17 PM [facility] Leukocytes, Urine Negative Negative LAB URINALYSIS - AUTOMATED METHOD 02/23/2025 2:17 PM [facility] Nitrite, Urine Negative Negative LAB [...] - AUTOMATED METHOD 02/23/2025 2:17 PM EDT [facility] Urine Urine specimen obtained by clean catch procedure / Unknown Non-blood Collection / Unknown 02/23/2025 2:04 PM EDT 02/23/2025 2:05 PM EDT Afsaneh KAPOOR LAB URINE ORDERABLES Final R esult Performing Organization Address City/[facility]/ZIP Co de Phone Number [facility] [address] [place] [address], [place] [phone] * Martinez urine culture tube (02/23/2025 2:04 PM EDT) [facility] Extra Tube Hold for add-ons. 02/23/2025 4:01 PM EDT [facility] Comment:Auto resulted. Urine Urine specimen obtained by clean catch procedure / Unknown Non-blood Collection / Unknown 02/23/2025 2:04 PM EDT 02/23/2025 2:05 PM EDT Afsaneh KAPOOR LAB URINE ORDERABLES Final R esult Performing Organization Address City/[facility] Co de Phone Number [facility] [address] [place] [address], [place] [phone] * Troponin I high sensitivity (02/23/2025 1:15 PM EDT) [facility] High Sensitivity Troponin I 25 <=54 ng/L LAB CHEMISTRY METHOD 02/23/2025 2:15 PM EDT [facility] Blood Venous blood specimen / Unknown Venipuncture / Unknown 02/23/2025 1:15 PM EDT 02/23/2025 1:39 PM EDT Narrative [facility] - 02/23/2025 2:15 PM EDT High levels of biotin in samples may falsely decrease hsTroponin values. Use caution when interpreting hsTroponin results in patients taking biotin who exhibit renal impairment (eGFR <60) or in patients taking more than 20 mg/day of biotin. us Afsaneh KAPOOR LAB BLOOD ORDERABLES Final R esult Performing Organization Address City/[facility]/ZIP Co de Phone Number [facility] [address] [place] [address], [place] [phone] * (ABNORMAL) Prothrombin time with INR (02/23/2025 1:15 PM EDT) [facility] Protime 14.9(H) 10.6 - 13.9 sec LAB COAGULATION METHOD 02/23/2025 1:52 PM EDT [facility] INR 1.2 LAB COAGULATION METHOD 02/23/2025 1:52 PM EDT [facility] Blood Venous blood specimen / Unknown Venipuncture / Unknown 02/23/2025 1:15 PM EDT 02/23/2025 1:40 PM EDT us Afsaneh KAPOOR LAB BLOOD ORDERABLES Final R esult Performing Organization Address City/[facility]/ZIP Co de Phone Number [facility] [address] [place] [address], [place] [phone] * Type and screen (02/23/2025 1:15 PM EDT) [facility] ABO Group A 02/23/2025 2:47 PM EDT [facility] Rh Type Positive 02/23/2025 2:47 PM EDT [facility] Antibody Screen Negative 02/23/2025 2:47 PM EDT [facility] Blood Venous blood specimen / Unknown Venipuncture / Unknown 02/23/2025 1:15 PM EDT 02/23/2025 1:40 PM EDT us Afsaneh KAPOOR LAB BLOOD BANK TEST ORDERABL ES Final Result [facility] [address] [place] [address], * (ABNORMAL) Comprehensive Metabolic Panel (CMP) (02/23/2025 1:15 PM EDT) Sodium 136 133 - 145 mmol/L LAB CHEMISTRY METHOD 02/23/2025 2:13 PM EDT [facility] Potassium 3.5 3.5 - 5.5 mmol/L LAB CHEMISTRY METHOD 02/23/2025 2:13 PM EDT [facility] Chloride 97 96 - 110 mmol/L LAB CHEMISTRY METHOD 02/23/2025 2:13 PM [facility] CO2 33(H) 21 - 32 mmol/L LAB CHEMISTRY METHOD 02/23/2025 2:13 PM EDT [facility] Anion Gap 6 3 - 11 LAB [facility]STRY [facility] Glucose 100 70 - 100 mg/dL LAB CHEMISTRY METHOD 02/23/2025 2:13 PM [facility] BUN 23 5 - 25 mg/dL LAB CHEMISTRY METHOD 02/23/2025 2:13 PM [facility] Creatinine 0.83 0.50 - 1.10 mg/dL LAB CHEMISTRY METHOD 02/23/2025 2:13 PM EDT [facility] eGFR 71 >=60 mL/min/1. 73m2 LAB CHEMISTRY METHOD 02/23/2025 2:13 PM [facility] Comment:Calculation based on the Chronic Kidney Disease Epidemiology Collaboration (CKD-EPI) equation refit without adjustment for race. BUN/Creatinine Ratio 27.7 LAB CHEMISTRY METHOD 02/23/2025 2:13 PM T [facility] Calcium 10.0 8.5 - 10.5 mg/dL LAB CHEMISTRY METHOD 02/23/2025 2:13 PM EDT [facility] AST (SGOT) 29 10 - 42 unit/L LAB CHEMISTRY METHOD 02/23/2025 2:13 PM EDT [facility] ALT (SGPT) 24 10 - 60 unit/L LAB CHEMISTRY METHOD 02/23/2025 2:13 PM EDT [facility] Alkaline Phosphatase 72 42 - 121 unit/L LAB CHEMISTRY METHOD 02/23/2025 2:13 PM EDT [facility] Total Protein 6.9 6.0 - 8.0 g/dL LAB CHEMISTRY METHOD 02/23/2025 2:13 PM EDT [facility] Albumin 3.5 3.2 - 5.0 g/dL LAB CHEMISTRY METHOD 02/23/2025 2:13 PM EDT [facility] Total Bilirubin 0.5 0.0 - 1.4 mg/dL LAB CHEMISTRY METHOD 02/23/2025 2:13 PM EDT [facility] Blood Venous blood specimen / Unknown Venipuncture / Unknown 02/23/2025 1:15 PM EDT 02/23/2025 1:39 PM EDT Afsaneh KAPOOR LAB BLOOD ORDERABLES Final R esult [facility] [address] [place] [address], * 12-Lead ECG (02/23/2025 1:05 PM EDT) Ventricular Rate ECG 79 BPM GEMUSE Atrial Rate 79 BPM GEMUSE P-R Interval 164 ms GEMUSE QRS Duration 138 ms GEMUSE Q-T Interval 422 ms GEMUSE QTc 483 ms GEMUSE P Wave [place] 68 degrees GEMUSE R [place] -59 degrees GEMUSE T [place] 62 degrees GEMUSE ECG Interpretation Normal sinus [...] GEMUSE from Last 3 Months Insurance MEDICARE [facility] Advance Directives Documents on File Type Date Recorded Patient Coloring Room Man Expl anation Health Care Decision (hx) 10/18/2013 [...] (hx) 10/04/2013 AD LACEY DIRECTIVE Care Teams Manager Applied Relationship Specialty Start Date End Date Caitlyn Bowie MD [address] [place] [id number] PCP - General Internal Medicine 12/10/24
--- OUTSIDE RECORDS SUMMARY | 2025-05-08 17:31 | XMS_ITS | Clinical Summary ---
Author Organization [address] Address [address] [place] [address] Phone Care Team Providers Care Supervisor Landscape Name Role Phone Caitlyn Bowie MD Primary Care Provider +1- [phone] Allergies Active Allergy Reactions Criticality Noted Date [...] needed.. 30 tablet 5 08/07/19 18 Active omeprazole (PRILOSEC) 40 MG capsule Take 1 [...] She takes some type of iron. Active SPIRONOLACTONE ORAL Take by mouth. Active empagliflozin (JARDIANCE ORAL) Take by mouth. Active riboflavin, vitamin B2, (RIBOFLAVIN ORAL) Take by mouth. Activ e ZINC ORAL Take by mouth. Activ e CYANOCOBALAMIN, VITAMIN B-12, ORAL Take by mouth. Active Active Problems Problem Noted Date Diagnosed [...] Encounters Date Type Department Care Team Description 05/06/2025 Telephone Hematology Program at [address] [address] Ronald Mills MD Appointment 04/24/2025 Telephone Hematology Program at [address] [address] Ronald Mills MD Triage 04/18/2025 Scanned Document INTERFACE DEFAULT [address] [place] [address] System, Provider Not In 04/18/2025 Telephone Hematology Program at [address] [address] Ronald Mills MD 04/11/2025 Documentation [facility] at [address] [place] [address] Taya Nuno RN 04/11/2025 Orders Only Cancer Center at [address] [place] [address] Ronald Mills MD VTE (venous thromboembolism) (Primary Dx); Elevated homocysteine; Antiphospholipid antibody syndrome (HC Code); Feeding difficulties, unspecified 04/05/2025 Telephone TURNER SPLITTER MACHINE OPERATOR [facility] [address] [place] [address] Mary Pan MD Advice Only from Last 3 Months Immunizations Immunization Administration [...] 10/18/2024 11:05 AM EDT Plan of Treatment Health Maintenance [...] Priority Date/Time Associated Diagnosis Comments LAB SCAN 04/18/2025 12:00 AM EDT LAB SCAN 04/18/2025 12:00 AM EDT COMPREHENSIVE METABOLIC PANEL Routine 04/05/2022 1:13 PM [...] to Health Maintenance Results * Lab Scan (04/18/2025 12:00 AM EDT) Only the most recent of2 resultswithin the time period is included. us Provider Not In System LAB BLOOD ORDERABLES Carmina l Result * (ABNORMAL) Comprehensive metabolic panel (04/05/2022 1:13 PM EDT) Sodium 138 136 - 144 mmol/L 04/05/2022 1:43 PM EDT [facility] Potassium 4.7 3.3 - 5.3 mmol/L 04/05/2022 1:43 PM EDT [facility] Chloride 100 98 - 107 mmol/L 04/05/2022 1:43 PM EDT [facility] CO2 30 20 - 30 mmol/L 04/05/2022 1:43 PM EDT [facility] Anion Gap 8 7 - 17 04/05/2022 1:43 PM EDT [facility] Glucose 115(H) 70 - 100 mg/dL 04/05/2022 1:43 PM EDT [facility] DEPARTMENT LABORATORY MEDICINE [facility] BUN 16 8 - 23 mg/dL 04/05/2022 1:43 PM EDT [facility] DEPARTMENT [facility]AT[facility] Creatinine 0.89 0.40 - 1.30 mg/dL 04/05/2022 1:43 PM EDT [facility] DEPARTMENT LABORATORY MEDICINE [facility] Calcium 10.5(H) 8.8 - 10.2 mg/dL 04/05/2022 1:43 PM EDT [facility] DEPARTMENT [facility]AT[facility] BUN/Creatinine Ratio 18.0 8.0 - 23.0 03/11 1:43 PM EDT [facility] DEPARTMENT LABORATORY MEDICINE [facility] Total Protein 7.0 6.6 - 8.7 g/dL 04/05/2022 1:43 PM EDT [facility] DEPARTMENT LABORATORY [facility] Albumin 4.2 3.6 - 4.9 g/dL 04/05/2022 1:43 PM T [facility] Total Bilirubin 0.6 <=1.2 mg/dL 04/05/2022 1:43 PM [facility] LABORATORY MEDICINE [facility] Alkaline Phosphatase 58 9 - 122 U/L 04/05/2022 1:43 PM [facility] Alanine Aminotransferase (ALT) 19 10 - 35 U/L 04/05/2022 1:43 PM T [facility] LABORATORY MEDICINE [facility] Comment:Calcium dobesilate c an cause artificially low ALT results at therapeutic concentrations Aspartate Aminotransferase (AST) 26 10 - 35 U/L 04/05/2022 1:43 PM [facility] LABORATORY [facility] Globulin 2.8 2.3 - 3.5 g/dL 04/05/2022 1:43 PM [facility] A/G Ratio 1.5 1.0 - 2.2 04/05/2022 1:43 PM [facility] AST/ALT Ratio 1.4 See Comment 04/05/2022 1:43 PM [facility] DEPARTMENT LABORATORY MEDICINE [facility] Comment: Adult with mild elevations of transaminases (< 5 times upper limit of normal): AST/ALT > 2 suggests alcoholic liver injury AST/ALT < 1 suggests non-alcoholic fatty liver disease (NAFLD) Baker (healthy): AST/ALT can be > 3 on day 0 AST/ALT < 2 by day 5 The thresholds provided focus on the most common etiologies of elevated serum transaminase levels and the associated alteration of AST:ALT ratios; they are not intended to exclude other feasible and clinically appropriate possibilities eGFR (Creatinine) >60 >=60 mL/min/1.7 3m2 04/05/2022 1:43 PM [facility] Comment:Estimated glomerular filtration rate (eGFR) [...] MD LAB BLOOD ORDERABLES Final Resul t [facility] DEPARTMENT OF LABORATORY MEDICINE [facility] [address] [place] [address] * Bone Density Result Scan (05/10/2017) Historical Provider IMG SCAN REPORTS Final Resul t * (ABNORMAL) Lipid panel (03/18/2016 2:55 PM EDT) Cholesterol 229(H) 115 - 199 mg/dL 03/18/2016 8:11 PM EDT [facility] HDL 83 >=40 mg/dL 03/18/2016 8:11 PM EDT [facility] Triglycerides 71 30 - 150 mg/dL 03/18/2016 8:11 PM EDT [facility] Chol/HDL Ratio 2.8 <=5 03/18/2016 8:11 PM EDT [facility] Comment:Cholesterol/HDL rati o cannot be calculated. LDL Calculated 132 See Comment mg/dL 03/18/2016 8:11 PM EDT [facility] Comment: <100: Optimal 100-129: Near optimal/above optimal 130-159: Borderline high risk 160-189: High risk >=190: Very high risk Blood specimen (specimen) Venipuncture / Unknown 03/18/2016 2:55 PM EDT 03/18/2016 3:17 PM EDT Narrative [facility] - 03/18/2016 8:11 PM EDT $18.27 us Sangeeta Garces MD LAB BLOOD ORDERABLES Fin al Result [facility] [address] [place] [address], [facility] [phone] * MAMMOGRAPHY REPORT (04/25/2013 6:47 AM EDT) 04/25/2013 6:47 AM EDT us Provider Not In System IMG SCAN REPORTS Final Re sult from Last 3 Months or Most Recently Relevant to Health Maintenance Insurance [facility] Advance Directives * Full ACLS (Latest Code Status on File) Date Activated Date Inactivated Comments 12/15/2018 7:13 PM 12/16/2018 6:09 PM * Full Interventions Date Activated Date Inactivated Comments 03/18/2016 6:34 PM 03/19/2016 6:40 PM Care Teams Supervisor Landscape Relationship Specialty Start Date End Date Caitlyn Bowie MD [address] [address] PCP - General Internal Medicine 05/06/21
--- OUTSIDE RECORDS SUMMARY | 2025-05-08 17:31 | XMS_ITS | Encounter Summary ---
Author Organization [facility] Address [address] [place] [address] Care Team Providers Care Jeep Driver Name Role Phone Caitlyn Bowie MD Primary Care Provider +1- [phone] Encounter Details Date Type Department Care Team (Late st Contact Info) Description 07/12/2019 Scanned Document [facility] at [address] [place] [address] Norma Renee MD [address] [place] [address] 2 [place] [phone] Social History Tobacco Use Types Packs/Day Years [...] documented as of this encounter Care Teams Jeep Driver Relationship Specialty Start Date End Date Caitlyn Bowie MD 3400 [facility] 1 [place] [address] PCP - General Internal Medicine 05/06/21 Henry Kelly MD Pulmonary Department 175 [facility], [address] [place] [address] Physician Pulmonary Disease 09/06/17 06/22/20 documented as of this encounter
--- OUTSIDE RECORDS SUMMARY | 2025-05-08 17:31 | XMS_ITS | Encounter Summary ---
Author Organization [facility] and [facility] Address [address] [place] [address] Care Team Providers Care Assembly Line Leader Name Role Phone Caitlyn Bowie MD Primary Care Provider +1- [phone] Encounter Details Date Type Department Care Team (Late st Contact Info) Description 01/28/2013 Scanned Document Thoracic Oncology Program at [address] [address] Solo Henry MD [address] [place] [address] Social History Tobacco Use Types Packs/Day [...] Start Date End Date Caitlyn Bowie MD [address] [address] PCP - General Internal Medicine 05/06/21 Henry Kelly MD Pulmonary Department [address] [place] [address], [address] [place] [address] Physician Pulmonary Disease 09/06/17 06/22/20 documented as of this encounter
--- OUTSIDE RECORDS SUMMARY | 2025-05-08 17:31 | XMS_ITS | Encounter Summary ---
Author Organization [facility] Address [address] [place] [address] Care Team Providers Care Hydroelectric Plant Structural Engineer Name Role Phone Caitlyn Bowie MD Primary Care Provider +1- [phone] Encounter Details Date Type Department Care Team (Late st Contact Info) Description 02/21/2017 Scanned Document [facility] Health Information Management [address] [place] [address] External, Provider Social History Tobacco Use Types [...] of this encounter Care Teams Hydroelectric Plant Structural Engineer Relationship Specialty Start Date End Date Caitlyn Bowie MD 3400 [facility] 1 [place] [address] PCP - General Internal Medicine 05/06/21 Henry Kelly MD Pulmonary Department 175 [facility], [address] [place] [address] Physician Pulmonary Disease 09/06/17 06/22/20 documented as of this encounter
--- OUTSIDE RECORDS SUMMARY | 2025-05-08 17:31 | XMS_ITS | Encounter Summary ---
Author Organization [facility] and [facility] Address [address] [place] [address] Care Team Providers Care Coil Tier Name Role Phone Caitlyn Bowie MD Primary Care Provider +1- [phone] Encounter Details Date Type Department Care Team ([facility] st Contact Info) Description 11/29/2019 Scanned Document [facility] Health Information Management [address] [place] [address] External, Provider Social History Tobacco Use Types [...] as of this encounter Care Teams Coil Tier Relationship Specialty Start Date End Date Caitlyn Bowie MD [address] [address] PCP - General Internal Medicine 05/06/21 Henry Kelly MD Pulmonary Department [address] [place] [address], [address] [place] [address] Physician Pulmonary Disease 09/06/17 06/22/20 documented as of this encounter
--- OUTSIDE RECORDS SUMMARY | 2025-05-08 17:31 | XMS_ITS | Encounter Summary ---
Author Organization [facility] Address [address] [place] [address] Phone Care Team Providers Care Implant Polisher Name Role Phone Caitlyn Bowie MD Primary Care Provider +1- [phone] Encounter Details Date Type Department Care Team (Late Contact Info) Description 12/10/2024 Documentation Only [facility] [address] [place] [address] Marina Abdi [address] [place] [address] Social History Tobacco Use Types [...] [facility] [address] [place] [address] Rubén Ashraf MD [address] [place] [address] [place] [address] documented as of this encounter Visit Diagnoses Not on filedocumented in this encounter Care Teams Implant Polisher Relationship Specialty Start Date End Date Caitlyn Bowie MD [address] [place], [place] PCP - General Internal Medicine 09/24/24 documented as of this encounter
--- OUTSIDE RECORDS SUMMARY | 2025-05-08 17:31 | XMS_ITS | Encounter Summary ---
Author Organization [facility] Address [address] [place] [address] Care Team Providers Care Service Order Taker Name Role Phone Caitlyn Bowie MD Primary Care Provider +1- [phone] Encounter Details Date Type Department Care Team ([facility] st Contact Info) Description 04/21/2021 Scanned Document INTERFACE DEFAULT [address] [place] [address] System, Provider Not In Social History Tobacco [...] as of this encounter Care Teams Service Order Taker Relationship Specialty Start Date End Date Caitlyn Bowie MD [address] [address] PCP - General Internal Medicine 05/06/21 documented as of this encounter
--- OUTSIDE RECORDS SUMMARY | 2025-05-08 17:31 | XMS_ITS | Encounter Summary ---
Author Organization [facility] Address [address] [place] [address] Care Team Providers Care Glass Selector Name Role Phone Caitlyn Bowie MD Primary Care Provider +1- [phone] Encounter Details Date Type Department Care Team (Late st Contact Info) Description 06/21/2012 Abstract [facility] at [address] [address] Mikel Lloyd MD [address] [place] [phone] Social History Tobacco Use Types Packs/Day Years [...] as of this encounter Care Teams Glass Selector Relationship Specialty Start Date End Date Caitlyn Bowie MD [address] [address] PCP - General Internal Medicine 05/06/21 Henry Kelly MD Pulmonary Department 175 [facility], [address] [place] [address] Physician Pulmonary Disease 09/06/17 06/22/20 documented as of this encounter
--- OUTSIDE RECORDS SUMMARY | 2025-05-08 17:31 | XMS_ITS | Encounter Summary ---
Author Organization [facility] Address [address] [place] [address] Care Team Providers Care Special Agent Fbi Name Role Phone Caitlyn Bowie MD Primary Care Provider +1- [phone] Encounter Details Date Type Department Care Team ([facility] st Contact Info) Description 04/27/2017 Scanned Document [facility] Health Information Management [address] [place] [address] External, Provider Social History Tobacco Use Types [...] as of this encounter Care Teams Special Agent Fbi Relationship Specialty Start Date End Date Caitlyn Bowie MD [address] [address] PCP - General Internal Medicine 05/06/21 Henry Kelly MD Pulmonary Department 175 [facility], [address] [place] [address] Physician Pulmonary Disease 09/06/17 06/22/20 documented as of this encounter
--- OUTSIDE RECORDS SUMMARY | 2025-05-08 17:31 | XMS_ITS | Encounter Summary ---
Author Organization [facility] and [facility] Address [address] [place] [address] Care Team Providers Care Certified Hand Therapist Name Role Phone Caitlyn Bowie MD Primary Care Provider +1- [phone] Encounter Details Date Type Department Care Team ([facility] st Contact Info) Description 04/12/2021 Scanned Document INTERFACE DEFAULT [address] [place] [address] System, Provider Not In Social History Tobacco [...] as of this encounter Care Teams Certified Hand Therapist Relationship Specialty Start Date End Date Caitlyn Bowie MD [address] [address] PCP - General Internal Medicine 05/06/21 documented as of this encounter
--- OUTSIDE RECORDS SUMMARY | 2025-05-08 17:31 | XMS_ITS | Encounter Summary ---
Author Organization [facility] Address [address] [place] [address] Care Team Providers Care Cartoon Designer Name Role Phone Caitlyn Bowie MD Primary Care Provider +1- [phone] Encounter Details Date Type Department Care Team ([facility] st Contact Info) Description 08/16/2012 Abstract [facility] Information Management [address] [place] [address] [place], Primary Care [address] [place] [address] Social History Tobacco Use Types Packs/Day Years [...] documented as of this encounter Care Teams Cartoon Designer Relationship Specialty Start Date End Date Caitlyn Bowie MD 3400 [facility] 1 [place] [address] PCP - General Internal Medicine 05/06/21 Henry Kelly MD Pulmonary Department [address] [place] [address], [address] [place] [address] Physician Pulmonary Disease 09/06/17 06/22/20 documented as of this encounter
--- OUTSIDE RECORDS SUMMARY | 2025-05-08 17:31 | XMS_ITS | Encounter Summary ---
Author Organization [facility] and [facility] Address [address] [place] [address] Care Team Providers Care Staff Development Coordinator Name Role Phone Caitlyn Bowie MD Primary Care Provider +1- [phone] Encounter Details Date Type Department Care Team (Late st Contact Info) Description 06/27/2019 Scanned Document [facility] at [address] [place] [address] Norma Renee MD [address] [place] [address] 2 [place] [phone] Social History Tobacco Use Types Packs/Day Years [...] as of this encounter Care Teams Staff Development Coordinator Relationship Specialty Start Date End Date Caitlyn Bowie MD 3400 [facility] 1 [place] [address] PCP - General Internal Medicine 05/06/21 Henry Kelly MD Pulmonary Department 175 [facility], [address] [place] [address] Physician Pulmonary Disease 09/06/17 06/22/20 documented as of this encounter
--- OUTSIDE RECORDS SUMMARY | 2025-05-08 17:31 | XMS_ITS | Encounter Summary ---
Author Organization [facility] Address [address] [place] [address] Care Team Providers Care Publications Manager Name Role Phone Caitlyn Bowie MD Primary Care Provider +1- [phone] Encounter Details Date Type Department Care Team (Late st Contact Info) Description 08/09/2017 Scanned Document Cardiovascular Medicine at [address] [place] [address] System, Provider Not In Social History Tobacco [...] as of this encounter Care Teams Publications Manager Relationship Specialty Start Date End Date Caitlyn Bowie MD 3400 [facility] 1 [place] [address] PCP - General Internal Medicine 05/06/21 Henry Kelly MD Pulmonary Department 175 [facility], [address] [place] [address] Physician Pulmonary Disease 09/06/17 06/22/20 documented as of this encounter
--- OUTSIDE RECORDS SUMMARY | 2025-05-08 17:31 | XMS_ITS | Encounter Summary ---
Author Organization [facility] Address [address] [place] [address] Phone Care Team Providers Care Shook Splicer Name Role Phone Caitlyn Bowie MD Primary Care Provider +1- [phone] Encounter Details Date Type Department Care Team (Late Contact Info) Description 12/10/2024 Documentation Only [facility] [address] [place] [address] Marina Abdi [address] [place] [address] Social History Tobacco Use [...] [facility] [address] [place] [address] Rubén Ashraf MD [address] [place] [address] [place] [address] documented as of this encounter Visit Diagnoses Not on filedocumented in this encounter Care Teams Shook Splicer Relationship Specialty Start Date End Date Caitlyn Bowie MD [address]00 [place], [place] PCP - General Internal Medicine 09/24/24 documented as of this encounter
--- OUTSIDE RECORDS SUMMARY | 2025-05-08 17:31 | XMS_ITS | Encounter Summary ---
Author Organization [facility] Address [address] [place] [address] Care Team Providers Care Consulting Sme Name Role Phone Caitlyn Bowie MD Primary Care Provider +1- [phone] Encounter Details Date Type Department Care Team (Late st Contact Info) Description 08/29/2019 Scanned Document [facility] at [address] [address] External, Provider Social History Tobacco Use Types [...] as of this encounter Care Teams Consulting Sme Relationship Specialty Start Date End Date Caitlyn Bowie MD 3400 [facility] 1 [place] [address] PCP - General Internal Medicine 05/06/21 Henry Kelly MD Pulmonary Department 175 [facility], [address] [place] [address] Physician Pulmonary Disease 09/06/17 06/22/20 documented as of this encounter
--- OUTSIDE RECORDS SUMMARY | 2025-05-08 17:31 | XMS_ITS | Encounter Summary ---
Author Organization [facility] Address [address] [place] [address] Care Team Providers Care Sales Office Coordinator Name Role Phone Caitlyn Bowie MD Primary Care Provider +1- [phone] Encounter Details Date Type Department Care Team ([facility] st Contact Info) Description 06/07/2017 Scanned Document [facility] Health Information Management [address] [place] [address] External, Provider Social History Tobacco Use Types [...] as of this encounter Care Teams Sales Office Coordinator Relationship Specialty Start Date End Date Caitlyn Bowie MD 3400 [facility] 1 [place] [address] PCP - General Internal Medicine 05/06/21 Henry Kelly MD Pulmonary Department 175 [facility], [address] [place] [address] Physician Pulmonary Disease 09/06/17 06/22/20 documented as of this encounter
--- OUTSIDE RECORDS SUMMARY | 2025-05-08 17:31 | XMS_ITS | Encounter Summary ---
Author Organization [facility] Address [address] [place] [address] Phone Care Team Providers Care Liquor Gallery Operator Name Role Phone Caitlyn Bowie MD Primary Care Provider +1- [phone] Encounter Details Date Type Department Care Team (Late Contact Info) Description 12/10/2024 Documentation Only [facility] [address] [place] [address] Marina Abdi [address] [place], [...] [facility] [address] [place] [address] Rubén Ashraf MD [address] [place] [address] [place] [address] documented as of this encounter Visit Diagnoses Not on filedocumented in this encounter Care Teams Liquor Gallery Operator Relationship Specialty Start Date End Date Caitlyn Bowie MD [address] [place], [place] PCP - General Internal Medicine 09/24/24 documented as of this encounter
--- OUTSIDE RECORDS SUMMARY | 2025-05-08 17:31 | XMS_ITS | Patient Health Record ---
Author Organization [facility] Address [address] [facility] [address] [place] [address] Care Team Providers Care Retail Interior Designer Name Role Phone EVELIN RAMSAY Primary Care Provider Yenny Hou Unavailable [phone] Allergies Allergen (clinical drug ingredient) Drug/Non Drug [...] 25MCG 1 ORAL daily; Durati on: -3 [facility] 06/10/2014 Active ZyrTEC Allergy 10MG [...] 50MG 1 ORAL at bedtime; Duration: -3 [facility] 06/10/2014 Active Meclizine HCl 25 MG 1 tablet as needed Orally [facility] 06/10/2014 Active Albuterol Sulfate (2.5 MG/3ML)0.083% Inhalation 4 x a day prn 06/10/2014 Active Valium 5MG 1 tablet as needed O RAL at bedtime, 1/2 tab prn during the day [facility] 06/10/2014 Active Social History Tobacco [...] Status Risk Notes Problem Postmenopausal atrophic vaginitis (75133499) Postmenopausal atrophic vaginitis (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) Active confirmed Problem Age-related osteoporosis (162685553) Age-related osteoporosis without current pathological fracture (M81.0) Active confirmed Problem Urgent desire to urinate (24709462) Urgency of urination (R39.15) Active confirmed Problem 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 Problem Chronic systolic heart failure (985041108) Chronic systolic (congestive) heart failure (I50.22) Active confirmed Problem Chronic obstructive pulmonary disease (69736915) Chronic obstructive pulmonary disease, unspecified (J44.9) Active confirmed Problem Functional urinary incontinence (789000997) Functional 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) Active confirmed Problem Personal history of primary malignant neoplasm of bronchus (377605418) 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) Active confirmed Vital Signs Temperature 97.7 degrees Fahrenheit 07/18/2024 Blood pressure diastolic 62 mm Hg 07/18/2024 Height 63 in 07/18/2024 Blood pressure systolic 102 mm Hg 07/18/2024 Weight 126 lbs 07/18/2024 BMI 22.32 kg/m2 07/18/2024 Encounters Encounter Location Date Provider Diagnosis Total [address] [address] 05/10/2024 Yenny Elizalde Abscess of vulva N76 .[address] [address] 05/17/2024 Yenny Elizalde Abscess of vulva N76 .[address] [address] 07/09/2024 Yenny Elizalde Urgency of urination R39.15 ; Acute vaginitis N76.0 and Postmenopausal atrophic vaginitis N95.[address] [address] 07/18/2024 Yenny Elizalde Encounter for screening mammogram for malignant neoplasm of breast Z12.31 and Mastodynia N64.[address] [address] 05/10/2024 Yenny Elizalde Total [facility] [address] [facility] [address] [place] [address] 05/13/2024 Yenny Elizalde Total [facility] [address] [facility] [address] [place] [address] 06/11/2024 Yenny Elizalde Assessments Encounter Date Diagnosis [...] Date MEDICARE [address] VEDA NIEVES [id number] [phone] [id number] CINDA WATSON Self - patient is the insured MEDEX [address] [place] [address] [id number] CINDA WATSON Self - patient is [...]
--- OUTSIDE RECORDS SUMMARY | 2025-05-08 17:31 | XMS_ITS | Encounter Summary ---
Author Organization [facility] Address [address] [place] [address] Care Team Providers Care Boarder Hand Name Role Phone Caitlyn Bowie MD Primary Care Provider +1- [phone] Encounter Details Date Type Department Care Team (Late st Contact Info) Description 06/27/2019 Scanned Document [facility] [address] [place] [address] Norma Renee MD [address] [place] [address] 2 [place] [phone] Social History Tobacco Use Types Packs/Day Years [...] documented as of this encounter Care Teams Boarder Hand Relationship Specialty Start Date End Date Caitlyn Bowie MD 3400 [facility] 1 [place] [address] PCP - General Internal Medicine 05/06/21 Henry Kelly MD Pulmonary Department 175 [facility], [address] [place] [address] Physician Pulmonary Disease 09/06/17 06/22/20 documented as of this encounter
--- OUTSIDE RECORDS SUMMARY | 2025-05-08 17:31 | XMS_ITS | Encounter Summary ---
Author Organization [facility] Address [address] [place] [address] Phone Care Team Providers Care Cleaner Signs Name Role Phone Caitlyn Bowie MD Primary Care Provider +1- [phone] Encounter Details Date Type Department Care Team (Late Contact Info) Description 12/10/2024 Documentation Only [facility] [address] [place] [address] Marina Abdi [address] [place] [address] Social History Tobacco Use Types [...] [facility] [address] [place] [address] Rubén Ashraf MD [address] [place] [address] [place] [address] documented as of this encounter Visit Diagnoses Not on filedocumented in this encounter Care Teams Cleaner Signs Relationship Specialty Start Date End Date Caitlyn Bowie MD [address]00 [place], [place] PCP - General Internal Medicine 09/24/24 documented as of this encounter
--- OUTSIDE RECORDS SUMMARY | 2025-05-08 17:31 | XMS_ITS | Encounter Summary ---
Author Organization [facility] Address [address] [place] [address] Care Team Providers Care Systems Development Consultant Name Role Phone Caitlyn Bowie MD Primary Care Provider +1- [phone] Encounter Details Date Type Department Care Team (Late st Contact Info) Description 12/03/2019 Scanned Document [facility] Health Information Management [address] [place] [address] External, Provider Social History Tobacco Use Types [...] as of this encounter Care Teams Systems Development Consultant Relationship Specialty Start Date End Date Caitlyn Bowie MD [address] [address] PCP - General Internal Medicine 05/06/21 Henry Kelly MD Pulmonary Department [address] [place] [address], [address] [place] [address] Physician Pulmonary Disease 09/06/17 06/22/20 documented as of this encounter
--- OUTSIDE RECORDS SUMMARY | 2025-05-08 17:31 | XMS_ITS | Encounter Summary ---
Author Organization [facility] Address [address] [place] [address] Care Team Providers Care Production Support Specialist Name Role Phone Caitlyn Bowie MD Primary Care Provider +1- [phone] Encounter Details Date Type Department Care Team (Late st Contact Info) Description 04/26/2017 Scanned Document Cardiovascular Medicine at [address] [place], [place] [address] Norma Renee MD [address] [place] [address] Social History Tobacco Use Types Packs/Day [...] of this encounter Care Teams Production Support Specialist Relationship Specialty Start Date End Date Caitlyn Bowie MD [address] [address] PCP - General Internal Medicine 05/06/21 Henry Kelly MD Pulmonary Department [address] [place] [address], [address] [place] [address] Physician Pulmonary Disease 09/06/17 06/22/20 documented as of this encounter
--- OUTSIDE RECORDS SUMMARY | 2025-05-08 17:31 | XMS_ITS | Encounter Summary ---
Author Organization [facility] Address [address] [place] [address] Care Team Providers Care Sternman Name Role Phone Caitlyn Bowie MD Primary Care Provider +1- [phone] Encounter Details Date Type Department Care Team (Late st Contact Info) Description 07/01/2019 Scanned Document [facility] at [address] [place] [address] Norma Renee MD [address] [place] [address] 2 [place] [phone] Social History Tobacco Use Types Packs/Day Years [...] documented as of this encounter Care Teams Sternman Relationship Specialty Start Date End Date Caitlyn Bowie MD 3400 [facility] 1 [place] [address] PCP - General Internal Medicine 05/06/21 Henry Kelly MD Pulmonary Department 175 [facility], [address] [place] [address] Physician Pulmonary Disease 09/06/17 06/22/20 documented as of this encounter
--- OUTSIDE RECORDS SUMMARY | 2025-05-08 17:32 | XMS_ITS | Encounter Summary ---
Author Organization [facility] Address [address] [place] [address] Care Team Providers Care Ophthalmologist Retina Specialist Name Role Phone Caitlyn Bowie MD Primary Care Provider +1- [phone] Encounter Details Date Type Department Care Team ([facility] st Contact Info) Description 04/28/2015 Scanned Document [facility] Health Information Management [address] [place] [address] External, Provider Social History Tobacco Use Types [...] documented as of this encounter Care Teams Ophthalmologist Retina Specialist Relationship Specialty Start Date End Date Caitlyn Bowie MD [address] [address] PCP - General Internal Medicine 05/06/21 Henry Kelly MD Pulmonary Department 175 [facility], [address] [place] [address] Physician Pulmonary Disease 09/06/17 06/22/20 documented as of this encounter
--- OUTSIDE RECORDS SUMMARY | 2025-05-08 17:32 | XMS_ITS | Encounter Summary ---
Author Organization [facility] Address [address] [place] [address] Phone Care Team Providers Care Cow Washer Name Role Phone Caitlyn Bowei MD Primary Care Provider +1- [phone] Encounter Details Date Type Department Care Team (Late Contact Info) Description 12/12/2024 Documentation Only [facility] [address] [place] [address] Marina Abdi [address] [place] [address] Social History Tobacco Use Types [...] [facility] [address] [place] [address] Rubén Ashraf MD [address] [place] [address] [place] [address] documented as of this encounter Visit Diagnoses Not on filedocumented in this encounter Care Teams Cow Washer Relationship Specialty Start Date End Date Caitlyn Bowie MD [address] [place], [place] PCP - General Internal Medicine 09/24/24 documented as of this encounter
--- OUTSIDE RECORDS SUMMARY | 2025-05-08 17:32 | XMS_ITS | Encounter Summary ---
Author Organization [facility] Address [address] [place] [address] Care Team Providers Care Security Incident Response Engineer Name Role Phone Caitlyn Bowie MD Primary Care Provider +1- [phone] Encounter Details Date Type Department Care Team (Late st Contact Info) Description 02/15/2021 Scanned Document INTERFACE DEFAULT [address] [place] [address] System, Provider Not In Social History Tobacco [...] as of this encounter Care Teams Security Incident Response Engineer Relationship Specialty Start Date End Date Caitlyn Bowie MD [address] [address] PCP - General Internal Medicine 05/06/21 documented as of this encounter
--- OUTSIDE RECORDS SUMMARY | 2025-05-08 17:32 | XMS_ITS | Encounter Summary ---
Author Organization [facility] Address 20 [place] [address] Care Team Providers Care At Risk Specialist Name Role Phone Caitlyn Bowie MD Primary Care Provider +1- [phone] Encounter Details Date Type Department Care Team (Late st Contact Info) Description 10/07/2013 Scanned Document Thoracic Oncology Program at [facility] 35 [facility]4 [place] [address] Suzy Kong MD 6 [place] [address] Social History Tobacco Use Types Packs/Day [...] End Date Caitlyn Bowie MD [address] [address] PCP - General Internal Medicine 05/06/21 Henry Kelly MD Pulmonary Department [address] [place] [address], [address] [place] [address] Physician Pulmonary Disease 09/06/17 06/22/20 documented as of this encounter
--- OUTSIDE RECORDS SUMMARY | 2025-05-08 17:32 | XMS_ITS | Encounter Summary ---
Author Organization [facility] Address [address] [place] [address] Care Team Providers Care Processor Helper Name Role Phone Caitlyn Bowie MD Primary Care Provider +1- [phone] Encounter Details Date Type Department Care Team ([facility] st Contact Info) Description 01/26/2018 Scanned Document [facility] Health Information Management [address] [place] [address] External, Provider Social History Tobacco Use Types [...] documented as of this encounter Care Teams Processor Helper Relationship Specialty Start Date End Date Caitlyn Bowie MD [address] [address] [address] PCP - General Internal Medicine 05/06/21 Henry Kelly MD Pulmonary Department 175 [facility], [address] [place] [address] Physician Pulmonary Disease 09/06/17 06/22/20 documented as of this encounter
--- OUTSIDE RECORDS SUMMARY | 2025-05-08 17:32 | XMS_ITS | Encounter Summary ---
Author Organization [facility] Address [address] [place] [address] Care Team Providers Care Digital Media Intern Name Role Phone Caitlyn Bowie MD Primary Care Provider +1- [phone] Encounter Details Date Type Department Care Team (Late st Contact Info) Description 11/09/2020 Scanned Document INTERFACE DEFAULT [address] [place] [address] System, Provider Not In Social History Tobacco [...] as of this encounter Care Teams Digital Media Intern Relationship Specialty Start Date End Date Caitlyn Bowie MD [address] [address] PCP - General Internal Medicine 05/06/21 documented as of this encounter
--- OUTSIDE RECORDS SUMMARY | 2025-05-08 17:32 | XMS_ITS | Encounter Summary ---
Author Organization [facility] Address [address] [place] [address] Care Team Providers Care Pole Shaver Name Role Phone Caitlyn Bowie MD Primary Care Provider +1- [phone] Encounter Details Date Type Department Care Team (Late st Contact Info) Description 09/01/2017 Scanned Document [facility] Health Information Management [address] [place] [address] External, Provider Social History Tobacco Use Types [...] as of this encounter Care Teams Pole Shaver Relationship Specialty Start Date End Date Caitlyn Bowie MD 3400 [facility] 1 [place] [address] PCP - General Internal Medicine 05/06/21 Henry Kelly MD Pulmonary Department 175 [facility], [address] [place] [address] Physician Pulmonary Disease 09/06/17 06/22/20 documented as of this encounter
--- OUTSIDE RECORDS SUMMARY | 2025-05-08 17:32 | XMS_ITS | Encounter Summary ---
Author Organization [facility] Address [address] [place] [address] Care Team Providers Care Board Winder Name Role Phone Caitlyn Bowie MD Primary Care Provider +1- [phone] Encounter Details Date Type Department Care Team (Late st Contact Info) Description 01/07/2014 Documentation [facility] [address] [place] [address] Shilpi Ibarra [address] [place] [address] Social History Tobacco Use Types Packs/Day Years [...] [facility] Progress Note This is a 70 [...] as of this encounter Care Teams Board Winder Relationship Specialty Start Date End Date Caitlyn Bowie MD 3400 [facility] 1 [place] [address] PCP - General Internal Medicine 05/06/21 Henry Kelly MD Pulmonary Department 175 [facility], [address] [place] [address] Physician Pulmonary Disease 09/06/17 06/22/20 documented as of this encounter
--- OUTSIDE RECORDS SUMMARY | 2025-05-08 17:32 | XMS_ITS | Encounter Summary ---
Author Organization [facility] Address [address] [place] [address] Care Team Providers Care Vacuum Pan Tender Name Role Phone Caitlyn Bowie MD Primary Care Provider +1- [phone] Encounter Details Date Type Department Care Team ([facility] st Contact Info) Description 02/25/2021 Scanned Document INTERFACE DEFAULT [address] [place] [address] System, Provider Not In Social History Tobacco [...] as of this encounter Care Teams Vacuum Pan Tender Relationship Specialty Start Date End Date Caitlyn Bowie MD [address] [address] PCP - General Internal Medicine 05/06/21 documented as of this encounter
--- OUTSIDE RECORDS SUMMARY | 2025-05-08 17:32 | XMS_ITS | Encounter Summary ---
Author Organization [facility] Address [address] [place] [address] Care Team Providers Care Pearl Hand Name Role Phone Caitlyn Bowie MD Primary Care Provider +1- [phone] Encounter Details Date Type Department Care Team ([facility] st Contact Info) Description 02/07/2021 Scanned Document INTERFACE DEFAULT [address] [place] [address] System, Provider Not In Social History Tobacco [...] as of this encounter Care Teams Pearl Hand Relationship Specialty Start Date End Date Caitlyn Bowie MD [address] [address] PCP - General Internal Medicine 05/06/21 documented as of this encounter
--- OUTSIDE RECORDS SUMMARY | 2025-05-08 17:32 | XMS_ITS | Encounter Summary ---
Author Organization [facility] Address [address] [place] [address] Care Team Providers Care Class B Truck Driver Name Role Phone Caitlyn Bowie MD Primary Care Provider +1- [phone] Encounter Details Date Type Department Care Team (Late st Contact Info) Description 03/11/2021 Scanned Document INTERFACE DEFAULT [address] [place] [address] System, Provider Not In Social History Tobacco [...] as of this encounter Care Teams Class B Truck Driver Relationship Specialty Start Date End Date Caitlyn Bowie MD [address] [address] PCP - General Internal Medicine 05/06/21 documented as of this encounter
--- OUTSIDE RECORDS SUMMARY | 2025-05-08 17:32 | XMS_ITS | Encounter Summary ---
Author Organization [facility] Address [address] [place] [address] Care Team Providers Care Bottle House Cleaners Supervisor Name Role Phone Caitlyn Bowie MD Primary Care Provider +1- [phone] Encounter Details Date Type Department Care Team ([facility] st Contact Info) Description 08/23/2017 Scanned Document [facility] Health Information Management [address] [place] [address] External, Provider Social History Tobacco Use Types [...] as of this encounter Care Teams Bottle House Cleaners Supervisor Relationship Specialty Start Date End Date Caitlyn Bowie MD 3400 [facility] 1 [place] [address] PCP - General Internal Medicine 05/06/21 Henry Kelly MD Pulmonary Department 175 [facility], [address] [place] [address] Physician Pulmonary Disease 09/06/17 06/22/20 documented as of this encounter
--- OUTSIDE RECORDS SUMMARY | 2025-05-08 17:32 | XMS_ITS | Encounter Summary ---
Author Organization [facility] Address [address] [place] [address] Care Team Providers Care Landscape Architect Name Role Phone Caitlyn Boiwe MD Primary Care Provider +1- [phone] Encounter Details Date Type Department Care Team (Late st Contact Info) Description 02/08/2021 Scanned Document INTERFACE DEFAULT [address] [place] [address] System, Provider Not In Social History Tobacco [...] End Date Caitlyn Bowie MD [address] [address] PCP - General Internal Medicine 05/06/21 documented as of this encounter
--- OUTSIDE RECORDS SUMMARY | 2025-05-08 17:32 | XMS_ITS | Encounter Summary ---
Author Organization [facility] Address [address] [place] [address] Care Team Providers Care Moisture Meter Reader Name Role Phone Caitlyn Bowie MD Primary Care Provider +1- [phone] Encounter Details Date Type Department Care Team ([facility] st Contact Info) Description 03/23/2021 Scanned Document INTERFACE DEFAULT [address] [place] [address] System, Provider Not In Social History Tobacco [...] LAB SCAN (03/23/2021 12:00 AM EDT) 03/23/2021 Provider Not In System LAB BLOOD ORDERABLES Carmina l Result documented in this encounter Visit Diagnoses Not on filedocumented in this encounter Additional Health Concerns Infection Onset Date Last Indicated Resolved Time COVID-19 03/05/2022 03/05/2022 03/15/2022 7:18 PM EDT Assessment Noted Time PHQ-9 Depression Total Score: 2 11/07/19 19 2:06 PM EDT documented as of this encounter Care Teams Moisture Meter Reader Relationship Specialty Start Date End Date Caitlyn Bowie MD [address] [address] PCP - General Internal Medicine 05/06/21 documented as of this encounter
--- OUTSIDE RECORDS SUMMARY | 2025-05-08 17:32 | XMS_ITS | Encounter Summary ---
Author Organization [facility] Address [address] [place] [address] Care Team Providers Care High School Chemistry Teacher Name Role Phone Caitlyn Bowie MD Primary Care Provider +1- [phone] Encounter Details Date Type Department Care Team ([facility] st Contact Info) Description 02/03/2021 Scanned Document [facility] Health Information Management [address] [place] [address] External, Provider Social History Tobacco Use Types [...] of this encounter Care Teams High School Chemistry Teacher Relationship Specialty Start Date End Date Caitlyn Bowie MD [address] [address] PCP - General Internal Medicine 05/06/21 documented as of this encounter
--- OUTSIDE RECORDS SUMMARY | 2025-05-08 17:32 | XMS_ITS | Encounter Summary ---
Author Organization [facility] Address [address] [place] [address] Care Team Providers Care Mold Chipper Name Role Phone Caitlyn Bowie MD Primary Care Provider +1- [phone] Encounter Details Date Type Department Care Team (Late st Contact Info) Description 03/14/2021 Scanned Document INTERFACE DEFAULT [address] [place] [address] System, Provider Not In Social History Tobacco [...] as of this encounter Care Teams Mold Chipper Relationship Specialty Start Date End Date Caitlyn Bowie MD [address] [address] PCP - General Internal Medicine 05/06/21 documented as of this encounter
--- OUTSIDE RECORDS SUMMARY | 2025-05-08 17:32 | XMS_ITS | Encounter Summary ---
Author Organization [facility] Address [address] [place] [address] Care Team Providers Care Cofounder Name Role Phone Caitlyn Bowie MD Primary Care Provider +1- [phone] Encounter Details Date Type Department Care Team ([facility] st Contact Info) Description 11/29/2017 Scanned Document [facility] Health Information Management [address] [place] [address] External, Provider Social History Tobacco Use Types [...] documented as of this encounter Care Teams Cofounder Relationship Specialty Start Date End Date Caitlyn Bowie MD 3400 [facility] 1 [place] [address] PCP - General Internal Medicine 05/06/21 Henry Kelly MD Pulmonary Department 175 [facility], [address] [place] [address] Physician Pulmonary Disease 09/06/17 06/22/20 documented as of this encounter
--- OUTSIDE RECORDS SUMMARY | 2025-05-08 17:32 | XMS_ITS | Encounter Summary ---
Author Organization [facility] Address [address] [place] [address] Care Team Providers Care Ironworker Name Role Phone Caitlyn Bowie MD Primary Care Provider +1- [phone] Encounter Details Date Type Department Care Team (Late st Contact Info) Description 03/14/2025 Scanned Document [facility] Neurology Ophthalmology [address] [place] [address] Shirley Chaidez PA-C [address] [address] Social History Tobacco Use Types Packs/Day Years [...] on filedocumented in this encounter Care Teams Ironworker Relationship Specialty Start Date End Date Caitlyn Bowie MD [address] [place] [address] PCP - General Internal Medicine 03/20/23 documented as of this encounter
--- OUTSIDE RECORDS SUMMARY | 2025-05-08 17:32 | XMS_ITS | Encounter Summary ---
Author Organization [facility] Address [address] [place] [address] Care Team Providers Care Mold Filler And Drainer Name Role Phone Caitlyn Bowie MD Primary Care Provider +1- [phone] Encounter Details Date Type Department Care Team ([facility] st Contact Info) Description 11/09/2014 Scanned Document [facility] Health Information Management [address] [place] [address] External, Provider Social History Tobacco Use Types [...] as of this encounter Care Teams Mold Filler And Drainer Relationship Specialty Start Date End Date Caitlyn Bowie MD [address] [address] PCP - General Internal Medicine 05/06/21 Henry Kelly MD Pulmonary Department 175 [facility], [address] [place] [address] Physician Pulmonary Disease 09/06/17 06/22/20 documented as of this encounter
--- OUTSIDE RECORDS SUMMARY | 2025-05-08 17:32 | XMS_ITS | Encounter Summary ---
Author Organization [facility] Address [address] [place] [address] Care Team Providers Care Lay Ups Assembler Name Role Phone Caitlyn Bowie MD Primary Care Provider +1- [phone] Encounter Details Date Type Department Care Team ([facility] st Contact Info) Description 01/26/2018 Scanned Document [facility] Health Information Management [address] [place] [address] External, Provider Social History Tobacco Use Types [...] as of this encounter Care Teams Lay Ups Assembler Relationship Specialty Start Date End Date Caitlyn Bowie MD 3400 [facility] 1 [place] [address] PCP - General Internal Medicine 05/06/21 Henry Kelly MD Pulmonary Department 175 [facility], [address] [place] [address] Physician Pulmonary Disease 09/06/17 06/22/20 documented as of this encounter
--- OUTSIDE RECORDS SUMMARY | 2025-05-08 17:32 | XMS_ITS | Encounter Summary ---
Author Organization [facility] Address [address] [place] [address] Care Team Providers Care Cream Dumper Name Role Phone Caitlyn Bowie MD Primary Care Provider +1- [phone] Encounter Details Date Type Department Care Team (Late st Contact Info) Description 10/16/2013 Scanned Document [facility] [address] [place] [address], [address] [facility], [address] [place], [place] [address] Suzy Kong MD [address] [place] [address] Social History Tobacco Use Types Packs/Day [...] as of this encounter Care Teams Cream Dumper Relationship Specialty Start Date End Date Caitlyn Bowie MD [address] [address] PCP - General Internal Medicine 05/06/21 Henry Kelly MD Pulmonary Department [address] [place] [address], [address] [place] [address] Physician Pulmonary Disease 09/06/17 06/22/20 documented as of this encounter
--- OUTSIDE RECORDS SUMMARY | 2025-05-08 17:32 | XMS_ITS | Encounter Summary ---
Author Organization [facility] Address [address] [place] [address] Care Team Providers Care Back Tender Cloth Printing Name Role Phone Caitlyn Bowie MD Primary Care Provider +1- [phone] Encounter Details Date Type Department Care Team (Late st Contact Info) Description 05/01/2015 Scanned Document [facility] Health Information Management [address] [place] [address] External, Provider Social History Tobacco Use Types [...] as of this encounter Care Teams Back Tender Cloth Printing Relationship Specialty Start Date End Date Caitlyn Bowie MD 3400 [facility] 1 [place] [address] PCP - General Internal Medicine 05/06/21 Herny Kelly MD Pulmonary Department 175 [facility], [address] [place] [address] Physician Pulmonary Disease 09/06/17 06/22/20 documented as of this encounter
--- OUTSIDE RECORDS SUMMARY | 2025-05-08 17:32 | XMS_ITS | Encounter Summary ---
Author Organization [facility] and [facility] Address [address] [place] [address] Care Team Providers Care Redevelopment Specialist Name Role Phone Caitlyn Bowie MD Primary Care Provider +1- [phone] Encounter Details Date Type Department Care Team (Late st Contact Info) Description 03/01/2021 Scanned Document INTERFACE DEFAULT [address] [place] [address] System, Provider Not In Social History Tobacco [...] documented as of this encounter Care Teams Redevelopment Specialist Relationship Specialty Start Date End Date Caitlyn Bowie MD [address] [address] PCP - General Internal Medicine 05/06/21 documented as of this encounter
--- OUTSIDE RECORDS SUMMARY | 2025-05-08 17:32 | XMS_ITS | Encounter Summary ---
Author Organization [facility] Address [address] [place] [address] Phone Care Team Providers Care Shell Sieve Operator Name Role Phone Caitlyn Bowie MD Primary Care Provider +1- [phone] Encounter Details Date Type Department Care Team (Late Contact Info) Description 12/12/2024 Documentation Only [facility] [address] [place] [address] Marina Abdi [address] [place] [address] Social History Tobacco Use Types [...] [facility] [address] [place] [address] Rubén Ashraf MD [address] [place] [address] [place] [address] documented as of this encounter Visit Diagnoses Not on filedocumented in this encounter Care Teams Shell Sieve Operator Relationship Specialty Start Date End Date Caitlyn Bowie MD [address] [place], [place] PCP - General Internal Medicine 09/24/24 documented as of this encounter
--- OUTSIDE RECORDS SUMMARY | 2025-05-08 17:32 | XMS_ITS | Encounter Summary ---
Author Organization [facility] Address [address] [place] [address] Care Team Providers Care Dough Machine Operator Name Role Phone Caitlyn Bowie MD Primary Care Provider +1- [phone] Encounter Details Date Type Department Care Team (Late st Contact Info) Description 03/22/2021 Scanned Document INTERFACE DEFAULT [address] [place] [address] System, Provider Not In Social History Tobacco [...] documented as of this encounter Care Teams Dough Machine Operator Relationship Specialty Start Date End Date Caitlyn Bowie MD [address] [address] PCP - General Internal Medicine 05/06/21 documented as of this encounter
--- OUTSIDE RECORDS SUMMARY | 2025-05-08 17:32 | XMS_ITS | Encounter Summary ---
Author Organization [facility] Address [address] [place] [address] Care Team Providers Care Gyn Physician Name Role Phone Caitlyn Bowie MD Primary Care Provider +1- [phone] Encounter Details Date Type Department Care Team (Late st Contact Info) Description 12/21/2020 Scanned Document INTERFACE DEFAULT [address] [place] [address] System, Provider Not In Social History Tobacco [...] documented as of this encounter Care Teams Gyn Physician Relationship Specialty Start Date End Date Caitlyn Bowie MD [address] [address] PCP - General Internal Medicine 05/06/21 documented as of this encounter
--- OUTSIDE RECORDS SUMMARY | 2025-05-08 17:32 | XMS_ITS | Encounter Summary ---
Author Organization [facility] Address [address] [place] [address] Care Team Providers Care Sleeve Separator Name Role Phone Caitlyn Bowie MD Primary Care Provider +1- [phone] Encounter Details Date Type Department Care Team (Late st Contact Info) Description 01/13/2021 Scanned Document [facility] at [address] [phone] Ronald [place] MD [address] [place] [phone] Social History Tobacco Use Types Packs/Day [...] as of this encounter Care Teams Sleeve Separator Relationship Specialty Start Date End Date Caitlyn Bowie MD [address] [address] PCP - General Internal Medicine 05/06/21 documented as of this encounter
--- OUTSIDE RECORDS SUMMARY | 2025-05-08 17:32 | XMS_ITS | Encounter Summary ---
Author Organization [facility] Address [address] [place] [address] Care Team Providers Care Vice President Biostatistics Name Role Phone Caitlyn Bowie MD Primary Care Provider +1- [phone] Encounter Details Date Type Department Care Team (Late st Contact Info) Description 02/03/2021 Scanned Document INTERFACE DEFAULT [address] [place] [address] System, Provider Not In Social History Tobacco [...] of this encounter Care Teams Vice President Biostatistics Relationship Specialty Start Date End Date Caitlyn Bowie MD [address] [address] PCP - General Internal Medicine 05/06/21 documented as of this encounter
--- OUTSIDE RECORDS SUMMARY | 2025-05-08 17:32 | XMS_ITS | Encounter Summary ---
Author Organization [facility] Address [address] [place] [address] Care Team Providers Care Heel Brusher Name Role Phone Caitlyn Bowie MD Primary Care Provider +1- [phone] Encounter Details Date Type Department Care Team (Late st Contact Info) Description 02/02/2021 Scanned Document [facility] Health Information Management [address] [place] [address] External, Provider Social History Tobacco Use Types [...] as of this encounter Care Teams Heel Brusher Relationship Specialty Start Date End Date Caitlyn Bowie MD [address] [address] PCP - General Internal Medicine 05/06/21 documented as of this encounter
--- OUTSIDE RECORDS SUMMARY | 2025-05-08 17:32 | XMS_ITS | Encounter Summary ---
Author Organization [facility] Address [address] [place] [address] Care Team Providers Care Command And Control Specialist Name Role Phone Caitlyn Bowie MD Primary Care Provider +1- [phone] Reason for Visit * Reason Comments Other Encounter Details Date Type Department Care Team (Late st Contact Info) Description 01/12/2021 Telephone [facility] [address] - [address] [phone] Ronald [place] MD [address] [place] [phone] Other Social History Tobacco Use Types [...] faxed to [facility] @ [phone]. Patient notified by phone. * Telephone Encounter - Kathleen Nasima - 01/12/2021 8:46 AM EDT Pt called looking to speak with Kirstin RE: lab orders sent to lab [facility] lab Looking to have labs sent there [...] as of this encounter Care Teams Command And Control Specialist Relationship Specialty Start Date End Date Caitlyn Bowie MD [address] [address] PCP - General Internal Medicine 05/06/21 documented as of this encounter
--- OUTSIDE RECORDS SUMMARY | 2025-05-08 17:32 | XMS_ITS | Encounter Summary ---
Author Organization [facility] and [facility] Address [address] [place] [address] Care Team Providers Care Ultrasound Applications Specialist Name Role Phone Caitlyn Bowie MD Primary Care Provider +1- [phone] Encounter Details Date Type Department Care Team (Late st Contact Info) Description 09/18/2020 Scanned Document INTERFACE DEFAULT [address] [place] [address] System, Provider Not In Social History Tobacco [...] as of this encounter Care Teams Ultrasound Applications Specialist Relationship Specialty Start Date End Date Caitlyn Bowie MD [address] [address] PCP - General Internal Medicine 05/06/21 documented as of this encounter
--- OUTSIDE RECORDS SUMMARY | 2025-05-08 17:32 | XMS_ITS | Encounter Summary ---
Author Organization [facility] and [facility] Address [address] [place] [address] Care Team Providers Care Scanning Supervisor Name Role Phone Caitlyn Bowie MD Primary Care Provider +1- [phone] Encounter Details Date Type Department Care Team ([facility] st Contact Info) Description 06/25/2015 Scanned Document [facility] Health Information Management [address] [place] [address] External, Provider Social History Tobacco Use Types [...] documented as of this encounter Care Teams Scanning Supervisor Relationship Specialty Start Date End Date Caitlyn Bowie MD [address] [address] PCP - General Internal Medicine 05/06/21 Henry Kelly MD Pulmonary Department 175 [facility], [address] [place] [address] Physician Pulmonary Disease 09/06/17 06/22/20 documented as of this encounter
--- OUTSIDE RECORDS SUMMARY | 2025-05-08 17:32 | XMS_ITS | Encounter Summary ---
Author Organization [facility] Address [address] [place] [address] Care Team Providers Care Strategic Partnership Specialist Name Role Phone Caitlyn Bowie MD Primary Care Provider +1- [phone] Encounter Details Date Type Department Care Team ([facility] st Contact Info) Description 07/31/2015 Scanned Document [facility] Health Information Management [address] [place] [address] External, Provider Social History Tobacco Use Types [...] Result - Final [facility] [place], [place], [facility] documented in this encounter Visit Diagnoses Not on filedocumented in this encounter Additional Health Concerns Infection Onset Date Last Indicated Resolved Time COVID-19 03/05/2022 03/05/2022 03/15/2022 7:18 PM EDT documented as of this encounter Care Teams Strategic Partnership Specialist Relationship Specialty Start Date End Date Caitlyn Bowie MD 3400 [facility] 1 [place] [address] PCP - General Internal Medicine 05/06/21 Henry Kelly MD Pulmonary Department 175 [facility], [address] [place] [address] Physician Pulmonary Disease 09/06/17 06/22/20 documented as of this encounter
--- OUTSIDE RECORDS SUMMARY | 2025-05-08 17:32 | XMS_ITS | Encounter Summary ---
Author Organization [facility] Address [address] [place] [address] Care Team Providers Care Harbor Pilot Name Role Phone Caitlyn Bowie MD Primary Care Provider +1- [phone] Encounter Details Date Type Department Care Team ([facility] st Contact Info) Description 08/26/2014 Documentation [facility] [address] [place] [address] Shilpi Ibarra [address] [place] [address] Social History Tobacco Use Types Packs/Day Years [...] [facility] This is a 69 [...] documented as of this encounter Care Teams Harbor Pilot Relationship Specialty Start Date End Date Caitlyn Bowie MD 3400 [facility] 1 [place] [address] PCP - General Internal Medicine 05/06/21 Henry Kelly MD Pulmonary Department 175 [facility], [address] [place] [address] Physician Pulmonary Disease 09/06/17 06/22/20 documented as of this encounter
--- OUTSIDE RECORDS SUMMARY | 2025-05-08 17:32 | XMS_ITS | Encounter Summary ---
Author Organization [facility] Address [address] [place] [address] Care Team Providers Care Civil Engineering Assistant Name Role Phone Caitlyn Bowie MD Primary Care Provider +1- [phone] Encounter Details Date Type Department Care Team (Late st Contact Info) Description 03/15/2021 Scanned Document INTERFACE DEFAULT [address] [place] [address] System, Provider Not In Social History Tobacco [...] of this encounter Care Teams Civil Engineering Assistant Relationship Specialty Start Date End Date Caitlyn Bowie MD [address] [address] PCP - General Internal Medicine 05/06/21 documented as of this encounter
--- OUTSIDE RECORDS SUMMARY | 2025-05-08 17:32 | XMS_ITS | Encounter Summary ---
Author Organization [facility] Address [address] [place] [address] Care Team Providers Care Chief Information Security Officer Name Role Phone Caitlyn Bowie MD Primary Care Provider +1- [phone] Encounter Details Date Type Department Care Team (Late st Contact Info) Description 02/11/2021 Scanned Document INTERFACE DEFAULT [address] [place] [address] System, Provider Not In Social History Tobacco [...] of this encounter Care Teams Chief Information Security Officer Relationship Specialty Start Date End Date Caitlyn Bowie MD [address] [address] PCP - General Internal Medicine 05/06/21 documented as of this encounter
--- OUTSIDE RECORDS SUMMARY | 2025-05-08 17:32 | XMS_ITS | Encounter Summary ---
Author Organization [facility] Address [address] [place] [address] Care Team Providers Care Silver Wrapper Name Role Phone Caitlyn Bowie MD Primary Care Provider +1- [phone] Encounter Details Date Type Department Care Team (Late st Contact Info) Description 01/27/2021 Scanned Document [facility] at [address] [address] External, Provider Social History Tobacco Use Types [...] as of this encounter Care Teams Silver Wrapper Relationship Specialty Start Date End Date Caitlyn Bowie MD [address] [address] PCP - General Internal Medicine 05/06/21 documented as of this encounter
--- OUTSIDE RECORDS SUMMARY | 2025-05-08 17:32 | XMS_ITS | Encounter Summary ---
Author Organization [facility] Address [address] [place] [address] Care Team Providers Care Hospice Volunteer Coordinator Name Role Phone Caitlyn Bowie MD Primary Care Provider +1- [phone] Encounter Details Date Type Department Care Team (Late st Contact Info) Description 01/13/2021 Scanned Document [facility] at [address] [address] External, Provider Social History Tobacco Use Types [...] as of this encounter Care Teams Hospice Volunteer Coordinator Relationship Specialty Start Date End Date Caitlyn Bowie MD [address] [address] PCP - General Internal Medicine 05/06/21 documented as of this encounter
--- OUTSIDE RECORDS SUMMARY | 2025-05-08 17:32 | XMS_ITS | Encounter Summary ---
Author Organization [facility] Address [address] [place] [address] Care Team Providers Care Medical Office Receptionist Name Role Phone Caitlyn Bowie MD Primary Care Provider +1- [phone] Encounter Details Date Type Department Care Team ([facility] st Contact Info) Description 03/08/2021 Scanned Document INTERFACE DEFAULT [address] [place] [address] System, Provider Not In Social History Tobacco [...] as of this encounter Care Teams Medical Office Receptionist Relationship Specialty Start Date End Date Caitlyn Bowie MD [address] [address] PCP - General Internal Medicine 05/06/21 documented as of this encounter
--- OUTSIDE RECORDS SUMMARY | 2025-05-08 17:32 | XMS_ITS | Encounter Summary ---
Author Organization [facility] Address [address] [place] [address] Care Team Providers Care Detailer School Photographs Name Role Phone Caitlyn Bowie MD Primary Care Provider +1- [phone] Encounter Details Date Type Department Care Team (Late st Contact Info) Description 03/24/2021 Scanned Document INTERFACE DEFAULT [address] [place] [address] System, Provider Not In Social History Tobacco [...] documented as of this encounter Care Teams Detailer School Photographs Relationship Specialty Start Date End Date Caitlyn Bowie MD [address] [address] PCP - General Internal Medicine 05/06/21 documented as of this encounter
--- OUTSIDE RECORDS SUMMARY | 2025-05-08 17:32 | XMS_ITS | Encounter Summary ---
Author Organization [facility] Address [address] [place] [address] Care Team Providers Care Account Auditor Name Role Phone Caitlyn Bowie MD Primary Care Provider +1- [phone] Encounter Details Date Type Department Care Team ([facility] st Contact Info) Description 02/28/2021 Scanned Document INTERFACE DEFAULT [address] [place] [address] System, Provider Not In Social History Tobacco [...] as of this encounter Care Teams Account Auditor Relationship Specialty Start Date End Date Caitlyn Bowie MD [address] [address] PCP - General Internal Medicine 05/06/21 documented as of this encounter
--- OUTSIDE RECORDS SUMMARY | 2025-05-08 17:32 | XMS_ITS | Encounter Summary ---
Author Organization [facility] Address [address] [place] [address] Care Team Providers Care Residential Plumber Name Role Phone Caitlyn Bowie MD Primary Care Provider +1- [phone] Encounter Details Date Type Department Care Team ([facility] st Contact Info) Description 02/24/2021 Scanned Document INTERFACE DEFAULT [address] [place] [address] System, Provider Not In Social History Tobacco [...] as of this encounter Care Teams Residential Plumber Relationship Specialty Start Date End Date Caitlyn Bowie MD [facility] [address] [address] PCP - General Internal Medicine 05/06/21 documented as of this encounter
--- OUTSIDE RECORDS SUMMARY | 2025-05-08 17:32 | XMS_ITS | Encounter Summary ---
Author Organization [facility] and [facility] Address [address] [place] [address] Care Team Providers Care Log Hooker Name Role Phone Caitlyn Bowie MD Primary Care Provider +1- [phone] Encounter Details Date Type Department Care Team ([facility] st Contact Info) Description 02/02/2021 Scanned Document INTERFACE DEFAULT [address] [place] [address] System, Provider Not In Social History Tobacco [...] as of this encounter Care Teams Log Hooker Relationship Specialty Start Date End Date Caitlyn Bowie MD [address] [address] PCP - General Internal Medicine 05/06/21 documented as of this encounter
--- OUTSIDE RECORDS SUMMARY | 2025-05-08 17:32 | XMS_ITS | Encounter Summary ---
Author Organization [facility] Address [address] [place] [address] Care Team Providers Care Inside Sales Assistant Name Role Phone Caitlyn Bowie MD Primary Care Provider +1- [phone] Encounter Details Date Type Department Care Team (Late st Contact Info) Description 04/02/2021 Scanned Document INTERFACE DEFAULT [address] [place] [address] System, Provider Not In Social History Tobacco [...] of this encounter Care Teams Inside Sales Assistant Relationship Specialty Start Date End Date Caitlyn Bowie MD [address] [address] PCP - General Internal Medicine 05/06/21 documented as of this encounter
--- OUTSIDE RECORDS SUMMARY | 2025-05-08 17:32 | XMS_ITS | Encounter Summary ---
Author Organization [facility] and [facility] Address [address] [place] [address] Care Team Providers Care Plant Associate Name Role Phone Caitlyn Bowie MD Primary Care Provider +1- [phone] Encounter Details Date Type Department Care Team ([facility] st Contact Info) Description 05/14/2015 Scanned Document [facility] Health Information Management [address] [place] [address] External, Provider Social History Tobacco Use Types [...] End Date Caitlyn Bowie MD [address] [address] PCP - General Internal Medicine 05/06/21 Henry Kelly MD Pulmonary Department [address] [facility], [address] [place] [address] Physician Pulmonary Disease 09/06/17 06/22/20 documented as of this encounter
--- OUTSIDE RECORDS SUMMARY | 2025-05-08 17:32 | XMS_ITS | Encounter Summary ---
Author Organization [facility] Address [address] [place] [address] Care Team Providers Care Waitangi Tribunal Member Name Role Phone Caitlyn Bowie MD Primary Care Provider +1- [phone] Encounter Details Date Type Department Care Team ([facility] st Contact Info) Description 04/28/2015 Scanned Document [facility] Health Information Management [address] [place] [address] External, Provider Social History Tobacco Use Types [...] BLOOD ORDERABLES Edited Re sult - Final [facility] [place], [place], [facility] documented in this encounter Visit Diagnoses Not on filedocumented in this encounter Additional Health Concerns Infection Onset Date Last Indicated Resolved Time COVID-19 03/05/2022 03/05/2022 03/15/2022 7:18 PM EDT documented as of this encounter Care Teams Waitangi Tribunal Member Relationship Specialty Start Date End Date Caitlyn Bowie MD 3400 [facility] 1 [place] [address] PCP - General Internal Medicine 05/06/21 Henry Kelly MD Pulmonary Department [address] [place] [address], [address] [place] [address] Physician Pulmonary Disease 09/06/17 06/22/20 documented as of this encounter
--- OUTSIDE RECORDS SUMMARY | 2025-05-08 17:32 | XMS_ITS | Encounter Summary ---
Author Organization [facility] and [facility] Address [address] [place] [address] Care Team Providers Care Glass Production Machine Operator Name Role Phone Caitlyn Bowie MD Primary Care Provider +1- [phone] Encounter Details Date Type Department Care Team (Late st Contact Info) Description 03/16/2021 Scanned Document INTERFACE DEFAULT [address] [place] [address] System, Provider Not In Social History Tobacco [...] as of this encounter Care Teams Glass Production Machine Operator Relationship Specialty Start Date End Date Caitlyn Bowie MD [address] [phone] PCP - General Internal Medicine 05/06/21 documented as of this encounter
--- OUTSIDE RECORDS SUMMARY | 2025-05-08 17:32 | XMS_ITS | Encounter Summary ---
Author Organization [facility] and [facility] Address [address] [place] [address] Care Team Providers Care Universal Grinder Operator Name Role Phone Caitlyn Bowie MD Primary Care Provider +1- [phone] Encounter Details Date Type Department Care Team ([facility] st Contact Info) Description 11/07/2014 Scanned Document [facility] Health Information Management [address] [place] [address] External, Provider Social History Tobacco Use Types [...] documented as of this encounter Care Teams Universal Grinder Operator Relationship Specialty Start Date End Date Caitlyn Bowie MD [address] [address] PCP - General Internal Medicine 05/06/21 Henry Kelly MD Pulmonary Department [address] [facility], [address] [place] [address] Physician Pulmonary Disease 09/06/17 06/22/20 documented as of this encounter
--- OUTSIDE RECORDS SUMMARY | 2025-05-08 17:33 | XMS_ITS | Encounter Summary ---
Author Organization [facility] and [facility] Address [address] [place] [address] Care Team Providers Care Half Sole Fitter Name Role Phone Caitlyn Bowie MD Primary Care Provider +1- [phone] Encounter Details Date Type Department Care Team ([facility] st Contact Info) Description 01/27/2018 Scanned Document [facility] Health Information Management [address] [place] [address] External, Provider Social History Tobacco Use Types [...] documented as of this encounter Care Teams Half Sole Fitter Relationship Specialty Start Date End Date Caitlyn Bowie MD [address] [address] PCP - General Internal Medicine 05/06/21 Henry Kelly MD Pulmonary Department 175 [facility], [address] [place] [address] Physician Pulmonary Disease 09/06/17 06/22/20 documented as of this encounter
--- OUTSIDE RECORDS SUMMARY | 2025-05-08 17:33 | XMS_ITS | Encounter Summary ---
Author Organization [facility] and [facility] Address [address] [place] [address] Care Team Providers Care Supervisor Feed House Name Role Phone Caitlyn Bowie MD Primary Care Provider +1- [phone] Encounter Details Date Type Department Care Team ([facility] st Contact Info) Description 10/08/2021 Scanned Document INTERFACE DEFAULT [address] [place] [address] System, Provider Not In Social History Tobacco [...] as of this encounter Care Teams Supervisor Feed House Relationship Specialty Start Date End Date Caitlyn Bowie MD [address] [address] PCP - General Internal Medicine 05/06/21 documented as of this encounter
--- OUTSIDE RECORDS SUMMARY | 2025-05-08 17:33 | XMS_ITS | Encounter Summary ---
Author Organization [facility] and [facility] Address [address] [place] [address] Care Team Providers Care Payroll Specialist Name Role Phone Caitlyn Bowie MD Primary Care Provider +1- [phone] Encounter Details Date Type Department Care Team ([facility] st Contact Info) Description 06/08/2021 Scanned Document INTERFACE DEFAULT [address] [place] [address] System, Provider Not In Social History Tobacco [...] documented as of this encounter Care Teams Payroll Specialist Relationship Specialty Start Date End Date Caitlyn Bowie MD [address] [address] PCP - General Internal Medicine 05/06/21 documented as of this encounter
--- OUTSIDE RECORDS SUMMARY | 2025-05-08 17:33 | XMS_ITS | Encounter Summary ---
Author Organization [facility] and [facility] Address [address] [place] [address] Care Team Providers Care Philanthropy Officer Name Role Phone Caitlyn Bowie MD Primary Care Provider +1- [phone] Encounter Details Date Type Department Care Team (Late st Contact Info) Description 07/28/2018 Scanned Document [facility] Health Information Management [address] [place] [address] External, Provider Social History Tobacco Use Types [...] documented as of this encounter Care Teams Philanthropy Officer Relationship Specialty Start Date End Date Caitlyn Bowie MD 3400 [facility] 1 [place] [address] PCP - General Internal Medicine 05/06/21 Henry Kelly MD Pulmonary Department [address] [place] [address], [address] [place] [address] Physician Pulmonary Disease 09/06/17 06/22/20 documented as of this encounter
--- OUTSIDE RECORDS SUMMARY | 2025-05-08 17:33 | XMS_ITS | Encounter Summary ---
Author Organization [facility] and [facility] Address [address] [place] [address] Care Team Providers Care Space Engineer Name Role Phone Caitlyn Bowie MD Primary Care Provider +1- [phone] Encounter Details Date Type Department Care Team ([facility] st Contact Info) Description 08/07/2018 Scanned Document [facility] Health Information Management [address] [place] [address] External, Provider Social History Tobacco Use Types [...] documented as of this encounter Care Teams Space Engineer Relationship Specialty Start Date End Date Caitlyn Bowie MD [address] [address] PCP - General Internal Medicine 05/06/21 Henry Kelly MD Pulmonary Department 175 [facility], [address] [place] [address] Physician Pulmonary Disease 09/06/17 06/22/20 documented as of this encounter
--- OUTSIDE RECORDS SUMMARY | 2025-05-08 17:33 | XMS_ITS | Encounter Summary ---
Author Organization [facility] and [facility] Address [address] [place] [address] Care Team Providers Care Cat Hooker Name Role Phone Caitlyn Bowie MD Primary Care Provider +1- [phone] Encounter Details Date Type Department Care Team (Late st Contact Info) Description 06/07/2021 Scanned Document [facility] [address] [place] [address] Norma Renee MD [address] [place] [address] 2 [place] [phone] Social History Tobacco Use Types Packs/Day Years [...] documented as of this encounter Care Teams Cat Hooker Relationship Specialty Start Date End Date Caitlyn Bowie MD [address] [address] PCP - General Internal Medicine 05/06/21 documented as of this encounter
--- OUTSIDE RECORDS SUMMARY | 2025-05-08 17:33 | XMS_ITS | Encounter Summary ---
Author Organization [facility] Address [address] [place] [address] Care Team Providers Care Performance Reporter Name Role Phone Caitlyn Bowie MD Primary Care Provider +1- [phone] Encounter Details Date Type Department Care Team (Late st Contact Info) Description 06/07/2021 Scanned Document [facility] [address] [place] [address] Norma Renee MD [address] [place] [address] 2 [place] [phone] Social History Tobacco Use Types Packs/Day Years [...] as of this encounter Care Teams Performance Reporter Relationship Specialty Start Date End Date Caitlyn Bowie MD [address] [address] PCP - General Internal Medicine 05/06/21 documented as of this encounter
--- OUTSIDE RECORDS SUMMARY | 2025-05-08 17:33 | XMS_ITS | Encounter Summary ---
Author Organization [facility] and [facility] Address [address] [place] [address] Care Team Providers Care Division Leader Name Role Phone Caitlyn Bowie MD Primary Care Provider +1- [phone] Encounter Details Date Type Department Care Team (Late st Contact Info) Description 11/18/2021 Scanned Document [facility] Health Information Management [address] [place] [address] External, Provider Social History Tobacco Use Types [...] as of this encounter Care Teams Division Leader Relationship Specialty Start Date End Date Caitlyn Bowie MD [address] [address] PCP - General Internal Medicine 05/06/21 documented as of this encounter
--- OUTSIDE RECORDS SUMMARY | 2025-05-08 17:33 | XMS_ITS | Clinical Summary ---
Author Organization [facility] Address [address] [place] [address] Care Team Providers Care Coke Crusher Operator Name Role Phone Caitlyn Bowie MD Primary Care Provider +1- [phone] Allergies Active Allergy Reactions Criticality Noted Date [...] Breath High 05/09/2008 Bronchospasm or Wheezing Ipratropium Hammond Unknown/Patient and Family Unable to Define Medium [...] 1 capsule by mouth daily. Active B Vtracay-Q-Odplk Acid (STRESS 500 B-COMPLEX PO) Take 1 [...] Type Department Care Team Description 04/08/2025 Telephone [facility] Neurology Ophthalmology [address] [address] Yary Whitten DO Medical Complaint 03/14/2025 Scanned Document [facility] Neurology Ophthalmology [address] [place] [phone] hSirley Chaidez PA-C 03/11/2025 Telephone [facility] Neurology Ophthalmology [address] [address] Yary Whitten DO Medical Complaint from Last [...] & B MEDICARE PART A & B [facility] Care Teams Coke Crusher Operator Relationship Specialty Start Date End Date Caitlyn Bowie MD 3400 [place] [address] PCP - General Internal Medicine 03/20/23
--- OUTSIDE RECORDS SUMMARY | 2025-05-08 17:33 | XMS_ITS | Encounter Summary ---
Author Organization [facility] Address [address] [place] [address] Care Team Providers Care Rv Parts And Service Director Name Role Phone Caitlyn Bowie MD Primary Care Provider +1- [phone] Encounter Details Date Type Department Care Team (Late st Contact Info) Description 01/30/2018 Scanned Document [facility] Health Information Management [address] [place] [address] External, Provider Social History Tobacco Use Types [...] documented as of this encounter Care Teams Rv Parts And Service Director Relationship Specialty Start Date End Date Caitlyn Bowie MD 3400 [facility] 1 [place] [address] PCP - General Internal Medicine 05/06/21 Henry Kelly MD Pulmonary Department [address] [place] [address], [address] [place] [address] Physician Pulmonary Disease 09/06/17 06/22/20 documented as of this encounter
--- OUTSIDE RECORDS SUMMARY | 2025-05-08 17:33 | XMS_ITS | Encounter Summary ---
Author Organization [facility] Address [address] [place] [address] Care Team Providers Care Human Services Worker Name Role Phone Caitlyn Bowie MD Primary Care Provider +1- [phone] Encounter Details Date Type Department Care Team (Late st Contact Info) Description 04/03/2018 Scanned Document [facility] [address] [place] [address] Provider, Historical . Social History Tobacco Use Types Packs/Day [...] as of this encounter Care Teams Human Services Worker Relationship Specialty Start Date End Date Caitlyn Bowie MD 3400 [facility] 1 [place] [address] PCP - General Internal Medicine 05/06/21 Henry Kelly MD Pulmonary Department 175 [facility], [address] [place] [address] Physician Pulmonary Disease 09/06/17 06/22/20 documented as of this encounter
--- OUTSIDE RECORDS SUMMARY | 2025-05-08 17:33 | XMS_ITS | Encounter Summary ---
Author Organization [facility] Address [address] [place] [address] Care Team Providers Care Manufacturing Test Engineer Name Role Phone Caitlyn Bowie MD Primary Care Provider +1- [phone] Encounter Details Date Type Department Care Team ([facility] st Contact Info) Description 03/14/2018 Scanned Document [facility] Health Information Management [address] [place] [phone] External, Provider Social History Tobacco Use Types [...] as of this encounter Care Teams Manufacturing Test Engineer Relationship Specialty Start Date End Date Caitlyn Bowie MD 3400 [facility] 1 [place] [address] PCP - General Internal Medicine 05/06/21 Henry Kelly MD Pulmonary Department 175 [facility], [address] [place] [address] Physician Pulmonary Disease 09/06/17 06/22/20 documented as of this encounter
--- OUTSIDE RECORDS SUMMARY | 2025-05-08 17:33 | XMS_ITS | Encounter Summary ---
Author Organization [facility] Address [address] [place] [address] Care Team Providers Care Puppet Maker Name Role Phone Caitlyn Bowie MD Primary Care Provider +1- [phone] Encounter Details Date Type Department Care Team ([facility] st Contact Info) Description 02/01/2018 Scanned Document [facility] Health Information Management [address] [place] [address] External, Provider Social History Tobacco Use Types [...] documented as of this encounter Care Teams Puppet Maker Relationship Specialty Start Date End Date Caitlyn Bowie MD 3400 [facility] 1 [place] [address] PCP - General Internal Medicine 05/06/21 Henry Kelly MD Pulmonary Department 175 [facility], [address] [place] [address] Physician Pulmonary Disease 09/06/17 06/22/20 documented as of this encounter
--- OUTSIDE RECORDS SUMMARY | 2025-05-08 17:33 | XMS_ITS | Encounter Summary ---
Author Organization [facility] and [facility] Address [address] [place] [address] Care Team Providers Care Repair Cameraman Name Role Phone Caitlyn Bowie MD Primary Care Provider +1- [phone] Encounter Details Date Type Department Care Team (Late st Contact Info) Description 05/17/2021 Scanned Document [facility] at [address] [address] External, Provider Social History Tobacco Use Types [...] as of this encounter Care Teams Repair Cameraman Relationship Specialty Start Date End Date Caitlyn Bowie MD [address] [address] PCP - General Internal Medicine 05/06/21 documented as of this encounter
--- OUTSIDE RECORDS SUMMARY | 2025-05-08 17:33 | XMS_ITS | Encounter Summary ---
Author Organization [facility] and [facility] Address [address] [place] [address] Care Team Providers Care Aquatic Laborer Name Role Phone Caitlyn Bowie MD Primary Care Provider +1- [phone] Encounter Details Date Type Department Care Team ([facility] st Contact Info) Description 02/02/2018 Scanned Document [facility] Health Information Management [address] [place] [address] External, Provider Social History Tobacco Use Types [...] as of this encounter Care Teams Aquatic Laborer Relationship Specialty Start Date End Date Caitlyn Bowie MD 3400 [facility] 1 [place] [address] PCP - General Internal Medicine 05/06/21 Henry Kelly MD Pulmonary Department 175 [facility], [address] [place] [address] Physician Pulmonary Disease 09/06/17 06/22/20 documented as of this encounter
--- OUTSIDE RECORDS SUMMARY | 2025-05-08 17:33 | XMS_ITS | Encounter Summary ---
Author Organization [facility] and [facility] Address [address] [place] [address] Care Team Providers Care Wood Milling Machine Tender Name Role Phone Caitlyn Bowie MD Primary Care Provider +1- [phone] Encounter Details Date Type Department Care Team ([facility] st Contact Info) Description 10/15/2018 Scanned Document [facility] Health Information Management [address] [place] [address] External, Provider Social History Tobacco Use Types [...] as of this encounter Care Teams Wood Milling Machine Tender Relationship Specialty Start Date End Date Caitlyn Bowie MD [address] [address] PCP - General Internal Medicine 05/06/21 Henry Kelly MD Pulmonary Department 175 [facility], [address] [place] [address] Physician Pulmonary Disease 09/06/17 06/22/20 documented as of this encounter
--- OUTSIDE RECORDS SUMMARY | 2025-05-08 17:33 | XMS_ITS | Encounter Summary ---
Author Organization [facility] Address [address] [place] [address] Care Team Providers Care Electrical Controls Assembler Name Role Phone Caitlyn Bowie MD Primary Care Provider +1- [phone] Encounter Details Date Type Department Care Team (Late st Contact Info) Description 12/28/2021 Scanned Document INTERFACE DEFAULT [address] [place] [address] System, Provider Not In Social History Tobacco [...] as of this encounter Care Teams Electrical Controls Assembler Relationship Specialty Start Date End Date Caitlyn Bowie MD [address] [address] PCP - General Internal Medicine 05/06/21 documented as of this encounter
--- OUTSIDE RECORDS SUMMARY | 2025-05-08 17:33 | XMS_ITS | Encounter Summary ---
Author Organization [facility] Address [address] [place] [address] Care Team Providers Care Process Mold Technician Name Role Phone Caitlyn Bowie MD Primary Care Provider +1- [phone] Encounter Details Date Type Department Care Team ([facility] st Contact Info) Description 01/26/2018 Scanned Document [facility] Health Information Management [address] [place] [address] External, Provider Social History Tobacco Use Types [...] as of this encounter Care Teams Process Mold Technician Relationship Specialty Start Date End Date Caitlyn Bowie MD 3400 [facility] 1 [place] [address] PCP - General Internal Medicine 05/06/21 Henry Kelly MD Pulmonary Department 175 [facility], [address] [place] [address] Physician Pulmonary Disease 09/06/17 06/22/20 documented as of this encounter
--- OUTSIDE RECORDS SUMMARY | 2025-05-08 17:33 | XMS_ITS | Encounter Summary ---
Author Organization [facility] Address [address] [place] [address] Phone Care Team Providers Care General House Worker Name Role Phone Caitlyn Bowie MD Primary Care Provider +1- [phone] Encounter Details Date Type Department Care Team (Late Contact Info) Description 03/17/2025 Documentation Only [facility] [address] [place] [address] Marina Abdi [address] [place] [address] Social History Tobacco Use Types [...] [facility] [address] [place] [address] Rubén Ashraf MD [address] [place] [address] [place] [address] documented as of this encounter Visit Diagnoses Not on filedocumented in this encounter Care Teams General House Worker Relationship Specialty Start Date End Date Caitlyn Bowie MD 3400 [place], [place] PCP - General Internal Medicine 09/24/24 documented as of this encounter
--- OUTSIDE RECORDS SUMMARY | 2025-05-08 17:33 | XMS_ITS | Encounter Summary ---
Author Organization [facility] and [facility] Address [address] [place] [address] Care Team Providers Care Microelectronics Engineer Name Role Phone Caitlyn Bowie MD Primary Care Provider +1- [phone] Encounter Details Date Type Department Care Team (Late st Contact Info) Description 03/26/2015 Scanned Document Cardiovascular Medicine at [address] [place], [place] [address] Norma Renee MD [address] [place] [phone] Social History Tobacco Use Types Packs/Day [...] documented as of this encounter Care Teams Microelectronics Engineer Relationship Specialty Start Date End Date Caitlyn Bowie MD [address] [address] PCP - General Internal Medicine 05/06/21 Henry Kelly MD Pulmonary Department [address] [place] [address], [address] [place] [address] Physician Pulmonary Disease 09/06/17 06/22/20 documented as of this encounter
--- OUTSIDE RECORDS SUMMARY | 2025-05-08 17:33 | XMS_ITS | Encounter Summary ---
Author Organization [facility] and [facility] Address [address] [place] [address] Care Team Providers Care Food Service Steward Name Role Phone Caitlyn Bowie MD Primary Care Provider +1- [phone] Encounter Details Date Type Department Care Team (Late st Contact Info) Description 12/04/2014 Scanned Document [facility] Health Information Management [address] [place] [address] External, Provider Social History Tobacco Use Types [...] External LAB BLOOD ORDERABLES Final Res ult [facility] [place], [place], [facility] documented in this encounter Visit Diagnoses Not on filedocumented in this encounter Additional Health Concerns Infection Onset Date Last Indicated Resolved Time COVID-19 03/05/2022 03/05/2022 03/15/2022 7:18 PM EDT documented as of this encounter Care Teams Food Service Steward Relationship Specialty Start Date End Date Caitlyn Bowie MD 3400 [facility] 1 [place] [address] PCP - General Internal Medicine 05/06/21 Henry Kelly MD Pulmonary Department 175 [facility], [address] [place] [address] Physician Pulmonary Disease 09/06/17 06/22/20 documented as of this encounter
--- OUTSIDE RECORDS SUMMARY | 2025-05-08 17:33 | XMS_ITS | Encounter Summary ---
Author Organization [facility] and [facility] Address [address] [place] [address] Care Team Providers Care Clerk Supervisor Name Role Phone Caitlyn Bowie MD Primary Care Provider +1- [phone] Encounter Details Date Type Department Care Team ([facility] st Contact Info) Description 10/29/2021 Scanned Document [facility] Health Information Management [address] [place] [address] External, Provider Social History Tobacco Use Types [...] as of this encounter Care Teams Clerk Supervisor Relationship Specialty Start Date End Date Caitlyn Bowie MD [address] [address] PCP - General Internal Medicine 05/06/21 documented as of this encounter
--- OUTSIDE RECORDS SUMMARY | 2025-05-08 17:33 | XMS_ITS | Encounter Summary ---
Author Organization [facility] and [facility] Address [address] [place] [address] Care Team Providers Care Compliance Officer Name Role Phone Caitlyn Bowie MD Primary Care Provider +1- [phone] Encounter Details Date Type Department Care Team ([facility] st Contact Info) Description 01/28/2018 Scanned Document [facility] Health Information Management [address] [place] [address] External, Provider Social History Tobacco Use Types [...] as of this encounter Care Teams Compliance Officer Relationship Specialty Start Date End Date Caitlyn Bowie MD [address] [address] PCP - General Internal Medicine 05/06/21 Henry Kelly MD Pulmonary Department 175 [facility], [address] [place] [address] Physician Pulmonary Disease 09/06/17 06/22/20 documented as of this encounter
--- OUTSIDE RECORDS SUMMARY | 2025-05-08 17:33 | XMS_ITS | Encounter Summary ---
Author Organization [facility] and [facility] Address [address] [place] [address] Care Team Providers Care Yard Laborer Name Role Phone Caitlyn Bowie MD Primary Care Provider +1- [phone] Encounter Details Date Type Department Care Team (Late st Contact Info) Description 11/18/2021 Scanned Document INTERFACE DEFAULT [address] [place] [address] System, Provider Not In Social History Tobacco [...] as of this encounter Care Teams Yard Laborer Relationship Specialty Start Date End Date Caitlyn Bowie MD [address] [address] PCP - General Internal Medicine 05/06/21 documented as of this encounter
--- OUTSIDE RECORDS SUMMARY | 2025-05-08 17:33 | XMS_ITS | Encounter Summary ---
Author Organization [facility] and [facility] Address [address] [place] [address] Care Team Providers Care International Tax Manager Name Role Phone Caitlyn Bowie MD Primary Care Provider +1- [phone] Encounter Details Date Type Department Care Team ([facility] st Contact Info) Description 07/26/2018 Scanned Document [facility] Health Information Management [address] [place] [address] External, Provider Social History Tobacco Use Types [...] as of this encounter Care Teams International Tax Manager Relationship Specialty Start Date End Date Caitlyn Bowie MD 3400 [facility] 1 [place] [address] PCP - General Internal Medicine 05/06/21 Henry Kelly MD Pulmonary Department 175 [facility], [address] [place] [address] Physician Pulmonary Disease 09/06/17 06/22/20 documented as of this encounter
--- OUTSIDE RECORDS SUMMARY | 2025-05-08 17:33 | XMS_ITS | Encounter Summary ---
Author Organization [facility] and [facility] Address [address] [place] [address] Care Team Providers Care Hotel Front Office Manager Name Role Phone Caitlyn Bowie MD Primary Care Provider +1- [phone] Encounter Details Date Type Department Care Team ([facility] st Contact Info) Description 04/16/2018 Scanned Document [facility] Health Information Management [address] [place] [address] External, Provider Social History Tobacco Use Types [...] documented as of this encounter Care Teams Hotel Front Office Manager Relationship Specialty Start Date End Date Caitlyn Bowie MD [address] [address] PCP - General Internal Medicine 05/06/21 Henry Kelly MD Pulmonary Department 175 [facility], [address] [place] [address] Physician Pulmonary Disease 09/06/17 06/22/20 documented as of this encounter
--- OUTSIDE RECORDS SUMMARY | 2025-05-08 17:33 | XMS_ITS | Encounter Summary ---
Author Organization [facility] and [facility] Address [address] [place] [address] Care Team Providers Care Sample Steamer Name Role Phone Caitlyn Bowie MD Primary Care Provider +1- [phone] Encounter Details Date Type Department Care Team (Late st Contact Info) Description 01/27/2018 Scanned Document [facility] Health Information Management [address] [place] [address] External, Provider Social History Tobacco Use Types [...] as of this encounter Care Teams Sample Steamer Relationship Specialty Start Date End Date Caitlyn Bowie MD [address] [facility] 1 [place] [address] PCP - General Internal Medicine 05/06/21 Henry Kelly MD Pulmonary Department 175 [facility], [address] [place] [address] Physician Pulmonary Disease 09/06/17 06/22/20 documented as of this encounter
--- OUTSIDE RECORDS SUMMARY | 2025-05-08 17:33 | XMS_ITS | Encounter Summary ---
Author Organization [facility] Address [address] [place] [address] Care Team Providers Care Water Quality Manager Name Role Phone Caitlyn Bowie MD Primary Care Provider +1- [phone] Reason for Visit * Reason Onset Date Comments Appointment 05/06/2025 Encounter Details Date Type Department Care Team (Late st Contact Info) Description 05/06/2025 Telephone [facility] [address] [phone] Ronald Mills MD [address] [place] [phone] Appointment Social History Tobacco Use Types [...] * Telephone Encounter - Darby Ibrahim - 05/06/2025 10:45 AM EDT Patient calling-- states she received a no show letter in the mail for her 04/25/2025 appointment. She states called her on this day.. on her cell phone. (She was in [place].. in the hospital) I see she was scheduled for a mychart video visit this day which was no showed . However, I do notsee any documentation/note from 's telephone call with her. Patient is concerned as she has never no showed and does not want this to reflect in her record. Also, she wants to make sure their conversation is documented appropriately. documented in this encounter Plan of Treatment Not on file documented as of this encounter Visit Diagnoses Not on filedocumented in this encounter Additional Health Concerns Assessment Noted Time PHQ-9 Depression Total Score: 2 11/07/19 19 2:06 PM EDT documented as of this encounter Care Teams Water Quality Manager Relationship Specialty Start Date End Date Caitlyn Bowie MD [address] [address] PCP - General Internal Medicine 05/06/21 documented as of this encounter
--- OUTSIDE RECORDS SUMMARY | 2025-05-08 17:33 | XMS_ITS | Encounter Summary ---
Author Organization [facility] and [facility] Address [address] [place] [address] Care Team Providers Care Claims Investigator Name Role Phone Caitlyn Bowie MD Primary Care Provider +1- [phone] Encounter Details Date Type Department Care Team (Late st Contact Info) Description 03/13/2015 Scanned Document [facility] Health Information Management [address] [place] [phone] External, Provider Social History Tobacco Use Types [...] External LAB BLOOD ORDERABLES Final Res ult [facility] [place], [place], [place] * Lab Scan (02/16/2015) Blood specimen (specimen) us Provider External LAB BLOOD ORDERABLES Final Res ult Performing Organization Address City/State/[facility] Co de Phone Number [facility] documented in this encounter Visit Diagnoses Not on filedocumented in this encounter Additional Health Concerns Infection Onset Date Last Indicated Resolved Time COVID-19 03/05/2022 03/05/2022 03/15/2022 7:1 8 PM EDT documented as of this encounter Care Teams Claims Investigator Relationship Specialty Start Date End Date Caitlyn Bowie MD 3400 [facility] 1 [place] [address] PCP - General Internal Medicine 05/06/21 Henry Kelly MD Pulmonary Department 175 [facility], [address] [place] [address] Physician Pulmonary Disease 09/06/17 06/22/20 documented as of this encounter
--- OUTSIDE RECORDS SUMMARY | 2025-05-08 17:33 | XMS_ITS | Encounter Summary ---
Author Organization [facility] and [facility] Address [address] [place] [address] Care Team Providers Care Aerial Gunner Name Role Phone Caitlyn Bowie MD Primary Care Provider +1- [phone] Encounter Details Date Type Department Care Team (Late st Contact Info) Description 11/19/2021 Scanned Document Cardiovascular Medicine at [address] [place] [address] Norma Renee MD [address] [place] [phone] Social History Tobacco Use Types Packs/Day [...] as of this encounter Care Teams Aerial Gunner Relationship Specialty Start Date End Date Caitlyn Bowie MD [address] [address] PCP - General Internal Medicine 05/06/21 documented as of this encounter
--- OUTSIDE RECORDS SUMMARY | 2025-05-08 17:33 | XMS_ITS | Encounter Summary ---
Author Organization [facility] and [facility] Address [address] [place] [address] Care Team Providers Care Family Centered Specialist Name Role Phone Caitlyn Bowie MD Primary Care Provider +1- [phone] Encounter Details Date Type Department Care Team ([facility] st Contact Info) Description 01/26/2018 Scanned Document [facility] Health Information Management [address] [place] [address] External, Provider Social History Tobacco Use Types [...] as of this encounter Care Teams Family Centered Specialist Relationship Specialty Start Date End Date Caitlyn Bowie MD [address] [facility] 1 [place] [address] PCP - General Internal Medicine 05/06/21 Henry Kelly MD Pulmonary Department 175 [facility], [address] [place] [address] Physician Pulmonary Disease 09/06/17 06/22/20 documented as of this encounter
--- OUTSIDE RECORDS SUMMARY | 2025-05-08 17:33 | XMS_ITS | Encounter Summary ---
Author Organization [facility] and [facility] Address [address] [place] [address] Care Team Providers Care Field Contact Person Name Role Phone Caitlyn Bowie MD Primary Care Provider +1- [phone] Encounter Details Date Type Department Care Team (Late st Contact Info) Description 01/28/2018 Scanned Document [facility] Health Information Management [address] [place] [address] External, Provider Social History Tobacco Use Types [...] as of this encounter Care Teams Field Contact Person Relationship Specialty Start Date End Date Caitlyn Bowie MD 3400 [facility] 1 [place] [address] PCP - General Internal Medicine 05/06/21 Henry Kelly MD Pulmonary Department [address] [place] [address], [address] [place] [address] Physician Pulmonary Disease 09/06/17 06/22/20 documented as of this encounter
--- OUTSIDE RECORDS SUMMARY | 2025-05-08 17:33 | XMS_ITS | Encounter Summary ---
Author Organization [facility] Address [address] [place] [address] Care Team Providers Care Casing Trimmer Name Role Phone Caitlyn Bowie MD Primary Care Provider +1- [phone] Encounter Details Date Type Department Care Team (Late st Contact Info) Description 05/27/2021 Telephone [facility] [address] [address] Ronald Mills MD [address] [place] [phone] Social History Tobacco Use Types Packs/Day [...] as of this encounter Care Teams Casing Trimmer Relationship Specialty Start Date End Date Caitlyn Bowie MD [address] [address] PCP - General Internal Medicine 05/06/21 documented as of this encounter
--- OUTSIDE RECORDS SUMMARY | 2025-05-08 17:33 | XMS_ITS | Encounter Summary ---
Author Organization [facility] and [facility] Address [address] [place] [address] Care Team Providers Care Ornament Stitcher Name Role Phone Caitlyn Bowie MD Primary Care Provider +1- [phone] Encounter Details Date Type Department Care Team (Late st Contact Info) Description 07/30/2018 Scanned Document [facility] Health Information Management [address] [place] [address] External, Provider Social History Tobacco Use Types [...] as of this encounter Care Teams Ornament Stitcher Relationship Specialty Start Date End Date Caitlyn Bowie MD 3400 [facility] 1 [place] [address] PCP - General Internal Medicine 05/06/21 Henry Kelly MD Pulmonary Department [address] [place] [address], [address] [place] [address] Physician Pulmonary Disease 09/06/17 06/22/20 documented as of this encounter
--- OUTSIDE RECORDS SUMMARY | 2025-05-08 17:33 | XMS_ITS | Encounter Summary ---
Author Organization [facility] and [facility] Address [address] [place] [phone] Care Team Providers Care Stock Analyst Name Role Phone Caitlyn Bowie MD Primary Care Provider +1- [phone] Reason for Visit * Reason Comments Triage Encounter Details Date Type Department Care Team (Late st Contact Info) Description 10/18/2021 Telephone [facility] at [address] - [address] [phone] Ronald Mills MD [address] [place] [phone] Triage Social History Tobacco Use Types [...] as of this encounter Care Teams Stock Analyst Relationship Specialty Start Date End Date Caitlyn Bowie MD [address] [address] PCP - General Internal Medicine 05/06/21 documented as of this encounter
--- OUTSIDE RECORDS SUMMARY | 2025-05-08 17:33 | XMS_ITS | Encounter Summary ---
Author Organization [facility] Address [address] [place] [address] Care Team Providers Care Mellowing Machine Operator Name Role Phone Caitlyn Bowie MD Primary Care Provider +1- [phone] Encounter Details Date Type Department Care Team (Late st Contact Info) Description 06/07/2021 Scanned Document [facility] at [address] [address] External, Provider Social History Tobacco Use Types [...] documented as of this encounter Care Teams Mellowing Machine Operator Relationship Specialty Start Date End Date Caitlyn Bowie MD [address] [address] PCP - General Internal Medicine 05/06/21 documented as of this encounter
--- OUTSIDE RECORDS SUMMARY | 2025-05-08 17:33 | XMS_ITS | Encounter Summary ---
Author Organization [facility] and [facility] Address [address] [place] [address] Care Team Providers Care Chemistry Department Chair Name Role Phone Caitlyn Bowie MD Primary Care Provider +1- [phone] Encounter Details Date Type Department Care Team ([facility] st Contact Info) Description 02/02/2018 Scanned Document [facility] Health Information Management [address] [place] [phone] External, Provider Social History Tobacco Use Types [...] as of this encounter Care Teams Chemistry Department Chair Relationship Specialty Start Date End Date Caitlyn Bowie MD [address] [address] PCP - General Internal Medicine 05/06/21 Henry Kelly MD Pulmonary Department 175 [facility], [address] [place] [address] Physician Pulmonary Disease 09/06/17 06/22/20 documented as of this encounter
--- OUTSIDE RECORDS SUMMARY | 2025-05-08 17:33 | XMS_ITS | Encounter Summary ---
Author Organization [facility] and [facility] Address [address] [place] [phone] Care Team Providers Care Backend Developer Name Role Phone Caitlyn Bowie MD Primary Care Provider +1- [phone] Encounter Details Date Type Department Care Team (Late st Contact Info) Description 03/11/2015 Scanned Document [facility] Health Information Management [address] [place] [address] External, Provider Social History Tobacco Use Types [...] BLOOD ORDERABLES Edited Re sult - Final [facility] [place], [place], [facility] documented in this encounter Visit Diagnoses Not on filedocumented in this encounter Additional Health Concerns Infection Onset Date Last Indicated Resolved Time COVID-19 03/05/2022 03/05/2022 03/15/2022 7:18 PM EDT documented as of this encounter Care Teams Backend Developer Relationship Specialty Start Date End Date Caitlyn Bowie MD 3400 [facility] 1 [place] [address] PCP - General Internal Medicine 05/06/21 Henry Kelly MD Pulmonary Department [address] [place] [address], [address] [place] [address] Physician Pulmonary Disease 09/06/17 06/22/20 documented as of this encounter
--- OUTSIDE RECORDS SUMMARY | 2025-05-08 17:33 | XMS_ITS | Encounter Summary ---
Author Organization [facility] and [facility] Address [address] [place] [address] Care Team Providers Care Title I Math Tutor Name Role Phone Caitlyn Bowie MD Primary Care Provider +1- [phone] Encounter Details Date Type Department Care Team ([facility] st Contact Info) Description 04/29/2021 Scanned Document INTERFACE DEFAULT [address] [place] [phone] System, Provider Not In Social History Tobacco [...] of this encounter Care Teams Title I Math Tutor Relationship Specialty Start Date End Date Caitlyn Bowie MD [address] [address] PCP - General Internal Medicine 05/06/21 documented as of this encounter
--- OUTSIDE RECORDS SUMMARY | 2025-05-08 17:33 | XMS_ITS | Encounter Summary ---
Author Organization [facility] and [facility] Address [address] [place] [address] Care Team Providers Care Alterations Manager Name Role Phone Caitlyn Bowie MD Primary Care Provider +1- [phone] Encounter Details Date Type Department Care Team (Late st Contact Info) Description 02/19/2015 Scanned Document [facility] Health Information Management [address] [place] [address] External, Provider Social History Tobacco Use Types [...] External LAB BLOOD ORDERABLES Final Res ult [facility] [place], [place], [facility] documented in this encounter Visit Diagnoses Not on filedocumented in this encounter Additional Health Concerns Infection Onset Date Last Indicated Resolved Time COVID-19 03/05/2022 03/05/2022 03/15/2022 7:18 PM EDT documented as of this encounter Care Teams Alterations Manager Relationship Specialty Start Date End Date Caitlyn Bowie MD 3400 [facility] 1 [place] [address] PCP - General Internal Medicine 05/06/21 Henry Kelly MD Pulmonary Department 175 [facility], [address] [place] [address] Physician Pulmonary Disease 09/06/17 06/22/20 documented as of this encounter
--- OUTSIDE RECORDS SUMMARY | 2025-05-08 17:33 | XMS_ITS | Encounter Summary ---
Author Organization [facility] and [facility] Address [address] [place] [address] Care Team Providers Care Coin Machine Collector Name Role Phone Caitlyn Bowie MD Primary Care Provider +1- [phone] Reason for Visit * Reason Comments Advice Only Encounter Details Date Type Department Care Team ([facility] st Contact Info) Description 06/01/2021 Telephone [facility] at [address] [phone] Ronald Mills MD [address] [place] [phone] Advice Only Social History Tobacco Use [...] added that she's called before and sent SENSIMED messages but hasn't received a reply,[phone]. documented in this encounter Plan of Treatment Not on file documented as of this encounter Visit Diagnoses Not on filedocumented in this encounter Additional Health Concerns Infection Onset Date Last Indicated Resolved Time COVID-19 03/05/2022 03/05/2022 03/15/2022 7:18 PM EDT Assessment Noted Time PHQ-9 Depression Total Score: 2 11/07/19 19 2:06 PM EDT documented as of this encounter Care Teams Coin Machine Collector Relationship Specialty Start Date End Date Caitlyn Bowie MD [facility] [address] [address] PCP - General Internal Medicine 05/06/21 documented as of this encounter
--- OUTSIDE RECORDS SUMMARY | 2025-05-08 17:33 | XMS_ITS | Encounter Summary ---
Author Organization [facility] and [facility] Address [address] [place] [address] Care Team Providers Care Director Of Financial Planning Name Role Phone Caitlyn Bowie MD Primary Care Provider +1- [phone] Encounter Details Date Type Department Care Team ([facility] st Contact Info) Description 06/26/2018 Scanned Document [facility] Health Information Management [address] [place] [address] External, Provider Social History Tobacco Use Types [...] of this encounter Care Teams Director Of Financial Planning Relationship Specialty Start Date End Date Caitlyn Bowie MD [address] [address] PCP - General Internal Medicine 05/06/21 Henry Kelly MD Pulmonary Department 175 [facility], [address] [place] [address] Physician Pulmonary Disease 09/06/17 06/22/20 documented as of this encounter
--- OUTSIDE RECORDS SUMMARY | 2025-05-08 17:33 | XMS_ITS | Encounter Summary ---
Author Organization [facility] and [facility] Address [address] [place] [address] Care Team Providers Care Mushroom Farmer Name Role Phone Caitlyn Bowie MD Primary Care Provider +1- [phone] Encounter Details Date Type Department Care Team ([facility] st Contact Info) Description 01/26/2018 Scanned Document [facility] Health Information Management [address] [place] [address] External, Provider Social History Tobacco Use Types [...] as of this encounter Care Teams Mushroom Farmer Relationship Specialty Start Date End Date Caitlyn Bowie MD 3400 [facility] [address] [place] [address] PCP - General Internal Medicine 05/06/21 Henry Kelly MD Pulmonary Department 175 [facility], [address] [place] [address] Physician Pulmonary Disease 09/06/17 06/22/20 documented as of this encounter
--- OUTSIDE RECORDS SUMMARY | 2025-05-08 17:33 | XMS_ITS | Encounter Summary ---
Author Organization [facility] and [facility] Address [address] [place] [address] Care Team Providers Care Ball Racker Name Role Phone Caitlyn Bowie MD Primary Care Provider +1- [phone] Encounter Details Date Type Department Care Team ([facility] st Contact Info) Description 04/18/2018 Scanned Document [facility] Health Information Management [address] [place] [address] External, Provider Social History Tobacco Use Types [...] as of this encounter Care Teams Ball Racker Relationship Specialty Start Date End Date Caitlyn Bowie MD 3400 [facility] 1 [place] [address] PCP - General Internal Medicine 05/06/21 Henry Kelly MD Pulmonary Department 175 [facility], [address] [place] [address] Physician Pulmonary Disease 09/06/17 06/22/20 documented as of this encounter
--- OUTSIDE RECORDS SUMMARY | 2025-05-08 17:34 | XMS_ITS | Encounter Summary ---
Author Organization [facility] and [facility] Address [address] [place] [address] Care Team Providers Care Fruit Grader Operator Name Role Phone Caitlyn Bowie MD Primary Care Provider +1- [phone] Encounter Details Date Type Department Care Team (Late st Contact Info) Description 09/01/2023 Scanned Document INTERFACE DEFAULT [address] [place] [address] System, Provider Not In Social History Tobacco [...] as of this encounter Care Teams Fruit Grader Operator Relationship Specialty Start Date End Date Caitlyn Bowie MD [address] [address] PCP - General Internal Medicine 05/06/21 documented as of this encounter
--- OUTSIDE RECORDS SUMMARY | 2025-05-08 17:34 | XMS_ITS | Encounter Summary ---
Author Organization [facility] and [facility] Address [address] [place] [address] Care Team Providers Care Mdm Developer Name Role Phone Caitlyn Bowie MD Primary Care Provider +1- [phone] Encounter Details Date Type Department Care Team ([facility] st Contact Info) Description 05/05/2021 Scanned Document INTERFACE DEFAULT [address] [place] [address] System, Provider Not In Social History Tobacco [...] documented as of this encounter Care Teams Mdm Developer Relationship Specialty Start Date End Date Caitlyn Bowie MD [address] [address] PCP - General Internal Medicine 05/06/21 documented as of this encounter
--- OUTSIDE RECORDS SUMMARY | 2025-05-08 17:34 | XMS_ITS | Encounter Summary ---
Author Organization [facility] and [facility] Address [address] [place] [address] Care Team Providers Care Gis Professor Name Role Phone Caitlyn Bowie MD Primary Care Provider +1- [phone] Encounter Details Date Type Department Care Team ([facility] st Contact Info) Description 05/17/2023 Scanned Document INTERFACE DEFAULT [address] [place] [address] System, Provider Not In Social History Tobacco [...] Not In System LAB BLOOD ORDERABLES Carmina mcdonadl Result * LAB SCAN (05/17/2023 12:00 AM EST) us Provider Not In System LAB BLOOD ORDERABLES Carmina l Result * LAB SCAN (05/17/2023 12:00 AM EST) us Provider Not In System LAB BLOOD ORDERABLES Carimna l Result * LAB SCAN (05/17/2023 12:00 [...] as of this encounter Care Teams Gis Professor Relationship Specialty Start Date End Date Caitlyn Bowie MD [facility] [address] [address] PCP - General Internal Medicine 05/06/21 documented as of this encounter
--- OUTSIDE RECORDS SUMMARY | 2025-05-08 17:34 | XMS_ITS | Encounter Summary ---
Author Organization [facility] and [facility] Address [address] [place] [address] Care Team Providers Care Physician Practice Market Manager Name Role Phone Caitlyn Bowie MD Primary Care Provider +1- [phone] Encounter Details Date Type Department Care Team (Late st Contact Info) Description 09/10/2021 Scanned Document Cardiovascular Medicine at 175 [facility] 175 [facility] THIRD [place], [place] [address] Norma Renee MD [address] [place] [phone] Social History Tobacco Use Types Packs/Day Years [...] of this encounter Care Teams Physician Practice Market Manager Relationship Specialty Start Date End Date Caitlyn Bowie MD [address] [address] PCP - General Internal Medicine 05/06/21 documented as of this encounter
--- OUTSIDE RECORDS SUMMARY | 2025-05-08 17:34 | XMS_ITS | Encounter Summary ---
Author Organization [facility] and [facility] Address [address] [place] [address] Care Team Providers Care Customer Success Associate Name Role Phone Caitlyn Bowie MD Primary Care Provider +1- [phone] Encounter Details Date Type Department Care Team ([facility] st Contact Info) Description 09/02/2021 Scanned Document INTERFACE DEFAULT [address] [place] [address] System, Provider Not In Social History Tobacco [...] of this encounter Care Teams Customer Success Associate Relationship Specialty Start Date End Date Caitlyn Bowie MD [address] [address] PCP - General Internal Medicine 05/06/21 documented as of this encounter
--- OUTSIDE RECORDS SUMMARY | 2025-05-08 17:34 | XMS_ITS | Encounter Summary ---
Author Organization [facility] Address [address] [place] [address] Care Team Providers Care Singer And Unloader Name Role Phone Pcp, No Primary Care Provider Brennan Mario MD Primary Care Provider [phone] Caitlyn Bowie MD Primary Care Provider +1- [phone] Encounter Details Date Type Department Care Team (Late st Contact Info) Description 01/04/2022 Scanned Document [facility] Neurology Ophthalmology [address] [address] Yary Whitten DO [address] [place] [address] Social History Tobacco Use Types Packs/Day [...] on filedocumented in this encounter Care Teams Singer And Unloader Relationship Specialty Start Date End Date Pcp, No PCP - General General Medicine 10/04/21 07/18/22 Brennan Burnett MD [address] [place] [address] PCP - General 07/19/22 03/19/23 Caitlyn Bowie MD [address]00 [place] [address] PCP - General Internal Medicine 03/20/23 documented as of this encounter
--- OUTSIDE RECORDS SUMMARY | 2025-05-08 17:34 | XMS_ITS | Encounter Summary ---
Author Organization [facility] and [facility] Address [address] [place] [address] Care Team Providers Care Lead Burner Name Role Phone Caitlyn Bowie MD Primary Care Provider +1- [phone] Reason for Visit * Reason Comments Advice Only mass Encounter Details Date Type Department Care Team (Late st Contact Info) Description 09/06/2021 Telephone [facility] at [address] [phone] Ronald Mills MD [address] [place] [phone] Advice Only (mass) Social History Tobacco [...] and would like to discuss with Dr Milsl as soon as possible, . documented in [...] as of this encounter Care Teams Lead Burner Relationship Specialty Start Date End Date Caitlyn Bowie MD [facility] [address] [address] PCP - General Internal Medicine 05/06/21 documented as of this encounter
--- OUTSIDE RECORDS SUMMARY | 2025-05-08 17:34 | XMS_ITS | Encounter Summary ---
Author Organization [facility] and [facility] Address [address] [place] [address] Care Team Providers Care French Instructor Name Role Phone Caitlyn Bowie MD Primary Care Provider +1- [phone] Encounter Details Date Type Department Care Team (Late st Contact Info) Description 09/23/2021 Scanned Document INTERFACE DEFAULT [address] [place] [address] System, Provider Not In Social History Tobacco [...] as of this encounter Care Teams French Instructor Relationship Specialty Start Date End Date Caitlyn Bowie MD [address] [address] PCP - General Internal Medicine 05/06/21 documented as of this encounter
--- OUTSIDE RECORDS SUMMARY | 2025-05-08 17:34 | XMS_ITS | Encounter Summary ---
Author Organization [facility] and [facility] Address [address] [place] [address] Care Team Providers Care Patient Care Nursing Assistant Name Role Phone Caitlyn Bowie MD Primary Care Provider +1- [phone] Encounter Details Date Type Department Care Team ([facility] st Contact Info) Description 07/07/2021 Scanned Document INTERFACE DEFAULT [address] [place] [address] System, Provider Not In Social History Tobacco [...] of this encounter Care Teams Patient Care Nursing Assistant Relationship Specialty Start Date End Date Caitlyn Bowie MD [address] [address] PCP - General Internal Medicine 05/06/21 documented as of this encounter
--- OUTSIDE RECORDS SUMMARY | 2025-05-08 17:34 | XMS_ITS | Encounter Summary ---
Author Organization [facility] and [facility] Address [address] [place] [address] Care Team Providers Care Figure Model Name Role Phone Caitlyn Bowie MD Primary Care Provider +1- [phone] Encounter Details Date Type Department Care Team ([facility] st Contact Info) Description 04/25/2021 Scanned Document INTERFACE DEFAULT [address] [place] [address] System, Provider Not In Social History Tobacco [...] as of this encounter Care Teams Figure Model Relationship Specialty Start Date End Date Caitlyn Bowie MD [address] [address] PCP - General Internal Medicine 05/06/21 documented as of this encounter
--- OUTSIDE RECORDS SUMMARY | 2025-05-08 17:34 | XMS_ITS | Encounter Summary ---
Author Organization [facility] Address [address] [place] [address] Phone Care Team Providers Care Printing Supplies Sales Representative Name Role Phone Caitlyn Bowie MD Primary Care Provider +1- [phone] Encounter Details Date Type Department Care Team (Late st Contact Info) Description 10/10/2024 Documentation Only [facility] [address] [place] [address] Ron Taylor [place] [address] [place] [address] Social History Tobacco Use Types [...] [facility] [address] [place] [address] Rubén Ashraf MD [address] [place] [address] [place] [address] documented as of this encounter Visit Diagnoses Not on filedocumented in this encounter Care Teams Printing Supplies Sales Representative Relationship Specialty Start Date End Date Caitlyn Bowie MD 3400 [place], [place] PCP - General Internal Medicine 09/24/24 documented as of this encounter
--- OUTSIDE RECORDS SUMMARY | 2025-05-08 17:34 | XMS_ITS | Encounter Summary ---
Author Organization [facility] and [facility] Address [address] [place] [address] Care Team Providers Care Hogshead Liner Name Role Phone Caitlyn Bowie MD Primary Care Provider +1- [phone] Encounter Details Date Type Department Care Team ([facility] st Contact Info) Description 07/22/2021 Scanned Document INTERFACE DEFAULT [address] [place] [address] System, Provider Not In Social History Tobacco [...] documented as of this encounter Care Teams Hogshead Liner Relationship Specialty Start Date End Date Caitlyn Bowie MD [address] [address] PCP - General Internal Medicine 05/06/21 documented as of this encounter
--- OUTSIDE RECORDS SUMMARY | 2025-05-08 17:34 | XMS_ITS | Encounter Summary ---
Author Organization [facility] and [facility] Address [address] [place] [address] Care Team Providers Care Sports Information Director Name Role Phone Caitlyn Bowie MD Primary Care Provider +1- [phone] Encounter Details Date Type Department Care Team ([facility] st Contact Info) Description 07/06/2021 Scanned Document INTERFACE DEFAULT [address] [place] [address] System, Provider Not In Social History Tobacco [...] as of this encounter Care Teams Sports Information Director Relationship Specialty Start Date End Date Caitlyn Bowie MD [address] [address] PCP - General Internal Medicine 05/06/21 documented as of this encounter
--- OUTSIDE RECORDS SUMMARY | 2025-05-08 17:34 | XMS_ITS | Encounter Summary ---
Author Organization [facility] and [facility] Address [address] [place] [address] Care Team Providers Care Continuous Mining Machine Company Miner Name Role Phone Caitlyn Bowie MD Primary Care Provider +1- [phone] Encounter Details Date Type Department Care Team ([facility] st Contact Info) Description 09/24/2021 Scanned Document INTERFACE DEFAULT [address] [place] [address] System, Provider Not In Social History Tobacco [...] documented as of this encounter Care Teams Continuous Mining Machine Company Miner Relationship Specialty Start Date End Date Caitlyn Bowie MD [address] [address] PCP - General Internal Medicine 05/06/21 documented as of this encounter
--- OUTSIDE RECORDS SUMMARY | 2025-05-08 17:34 | XMS_ITS | Encounter Summary ---
Author Organization [facility] and [facility] Address [address] [place] [address] Care Team Providers Care Tire Vulcanizer Name Role Phone Caitlyn Bowie MD Primary Care Provider +1- [phone] Encounter Details Date Type Department Care Team (Late st Contact Info) Description 08/23/2022 Abstract [facility] at [facility] 2nd [place] [address] Norma Renee MD [address] [place] [phone] Social History Tobacco Use Types Packs/Day Years [...] documented as of this encounter Care Teams Tire Vulcanizer Relationship Specialty Start Date End Date Caitlyn Bowie MD NPI: [id number] [place] [phone] PCP - General Internal Medicine 05/06/21 documented as of this encounter
--- OUTSIDE RECORDS SUMMARY | 2025-05-08 17:34 | XMS_ITS | Encounter Summary ---
Author Organization [facility] and [facility] Address [address] [place] [address] Care Team Providers Care Barn And Property Manager Name Role Phone Caitlyn Bowie MD Primary Care Provider +1- [phone] Encounter Details Date Type Department Care Team ([facility] st Contact Info) Description 04/20/2023 Scanned Document INTERFACE DEFAULT [address] [place] [address] System, Provider Not In Social History Tobacco [...] as of this encounter Care Teams Barn And Property Manager Relationship Specialty Start Date End Date Caitlyn Bowie MD [address] [address] PCP - General Internal Medicine 05/06/21 documented as of this encounter
--- OUTSIDE RECORDS SUMMARY | 2025-05-08 17:34 | XMS_ITS | Encounter Summary ---
Author Organization [facility] Address [address] [place] [address] Care Team Providers Care Human Service Coordinator Name Role Phone Caitlyn Bowie MD Primary Care Provider +1- [phone] Encounter Details Date Type Department Care Team ([facility] st Contact Info) Description 01/31/2023 Abstract [facility] 35 [facility] NP8 [place] [address] Shilpi Romero RN Social History Tobacco Use Types Packs/Day [...] of this encounter Care Teams Human Service Coordinator Relationship Specialty Start Date End Date Caitlyn Bowie MD [address] [address] PCP - General Internal Medicine 05/06/21 documented as of this encounter
--- OUTSIDE RECORDS SUMMARY | 2025-05-08 17:34 | XMS_ITS | Encounter Summary ---
Author Organization [facility] Address [address] [place] [address] [address] [place] [address] Phone Care Team Providers Care Retail Warehouse Supervisor Name Role Phone Caitlyn Bowie MD Primary Care Provider +1- [phone] Encounter Details Date Type Department Care Team (Late st Contact Info) Description 08/30/2024 Abstract [facility] [address] [place] [address] [address] [place] [address] Adalgisa Whitney MD [address] [place] [address] 202 [place] [address] Social History Tobacco Use Types [...] as of this encounter Care Teams Retail Warehouse Supervisor Relationship Specialty Start Date End Date Caitlyn Bowie MD [address] [address] PCP - General Internal Medicine 05/06/21 documented as of this encounter
--- OUTSIDE RECORDS SUMMARY | 2025-05-08 17:34 | XMS_ITS | Encounter Summary ---
Author Organization [facility] and [facility] Address [address] [place] [address] Care Team Providers Care Photography Instructor Name Role Phone Caitlyn Bowie MD Primary Care Provider +1- [phone] Encounter Details Date Type Department Care Team ([facility] st Contact Info) Description 04/27/2021 Scanned Document INTERFACE DEFAULT [address] [place] [address] System, Provider Not In Social History Tobacco [...] as of this encounter Care Teams Photography Instructor Relationship Specialty Start Date End Date Caitlyn Bowie MD [facility] [address] [address] PCP - General Internal Medicine 05/06/21 documented as of this encounter
--- OUTSIDE RECORDS SUMMARY | 2025-05-08 17:34 | XMS_ITS | Encounter Summary ---
Author Organization [facility] and [facility] Address [address] [place] [address] Care Team Providers Care Slurry Man Name Role Phone Caitlyn Bowie MD Primary Care Provider +1- [phone] Encounter Details Date Type Department Care Team (Late st Contact Info) Description 07/28/2022 Scanned Document [facility] at [address] NP[address] [place] [address] Norma Renee MD [address] [place] [address] 2 [place] [phone] Social History Tobacco Use Types Packs/Day Years [...] as of this encounter Care Teams Slurry Man Relationship Specialty Start Date End Date Caitlyn Bowie MD [address] [address] PCP - General Internal Medicine 05/06/21 documented as of this encounter
--- OUTSIDE RECORDS SUMMARY | 2025-05-08 17:34 | XMS_ITS | Encounter Summary ---
Author Organization [facility] and [facility] Address [address] [place] [address] Care Team Providers Care Bakery Sales Clerk Name Role Phone Caitlyn Bowie MD Primary Care Provider +1- [phone] Encounter Details Date Type Department Care Team ([facility] st Contact Info) Description 01/02/2024 Scanned Document INTERFACE DEFAULT [address] [place] [address] System, Provider Not In Social History Tobacco [...] documented as of this encounter Care Teams Bakery Sales Clerk Relationship Specialty Start Date End Date Caitlyn Bowie MD [address] [address] PCP - General Internal Medicine 05/06/21 documented as of this encounter
--- OUTSIDE RECORDS SUMMARY | 2025-05-08 17:34 | XMS_ITS | Encounter Summary ---
Author Organization [facility] and [facility] Address [address] [place] [address] Care Team Providers Care Road Packer Operator Name Role Phone Caitlyn Bowie MD Primary Care Provider +1- [phone] Encounter Details Date Type Department Care Team ([facility] st Contact Info) Description 06/08/2022 Scanned Document INTERFACE DEFAULT [address] [place] [address] System, Provider Not In Social History Tobacco [...] as of this encounter Care Teams Road Packer Operator Relationship Specialty Start Date End Date Caitlyn Bowie MD [address] [address] PCP - General Internal Medicine 05/06/21 documented as of this encounter
--- OUTSIDE RECORDS SUMMARY | 2025-05-08 17:34 | XMS_ITS | Encounter Summary ---
Author Organization [facility] and [facility] Address [address] [place] [address] Care Team Providers Care Integrated Marketing Manager Name Role Phone Caitlyn Bowie MD Primary Care Provider +1- [phone] Encounter Details Date Type Department Care Team ([facility] st Contact Info) Description 09/07/2021 Scanned Document INTERFACE DEFAULT [address] [place] [address] System, Provider Not In Social History Tobacco [...] as of this encounter Care Teams Integrated Marketing Manager Relationship Specialty Start Date End Date Caitlyn Bowie MD [address] [address] PCP - General Internal Medicine 05/06/21 documented as of this encounter
--- OUTSIDE RECORDS SUMMARY | 2025-05-08 17:34 | XMS_ITS | Encounter Summary ---
Author Organization [facility] and [facility] Address [address] [place] [address] Care Team Providers Care Optical Instrument Repairer Name Role Phone Caitlyn Bowie MD Primary Care Provider +1- [phone] Encounter Details Date Type Department Care Team ([facility] st Contact Info) Description 06/24/2022 Scanned Document INTERFACE DEFAULT [address] [place] [address] System, Provider Not In Social History Tobacco [...] as of this encounter Care Teams Optical Instrument Repairer Relationship Specialty Start Date End Date Caitlyn Bowie MD [address] [address] PCP - General Internal Medicine 05/06/21 documented as of this encounter
--- OUTSIDE RECORDS SUMMARY | 2025-05-08 17:34 | XMS_ITS | Encounter Summary ---
Author Organization [facility] and [facility] Address [address] [place] [address] Care Team Providers Care Correctional Officer Chief Name Role Phone Caitlyn Bowie MD Primary Care Provider +1- [phone] Encounter Details Date Type Department Care Team ([facility] st Contact Info) Description 06/28/2022 Scanned Document INTERFACE DEFAULT [address] [place] [address] System, Provider Not In Social History Tobacco [...] as of this encounter Care Teams Correctional Officer Chief Relationship Specialty Start Date End Date Caitlyn Bowie MD [address] [address] PCP - General Internal Medicine 05/06/21 documented as of this encounter
--- OUTSIDE RECORDS SUMMARY | 2025-05-08 17:34 | XMS_ITS | Encounter Summary ---
Author Organization [facility] and [facility] Address [address] [place] [address] Care Team Providers Care Criminal Research Specialist Name Role Phone Caitlyn Bowie MD Primary Care Provider +1- [phone] Encounter Details Date Type Department Care Team ([facility] st Contact Info) Description 10/24/2022 Scanned Document INTERFACE DEFAULT [address] [place] [address] System, Provider Not In Social History Tobacco [...] as of this encounter Care Teams Criminal Research Specialist Relationship Specialty Start Date End Date Caitlyn Bowie MD [address] [address] PCP - General Internal Medicine 05/06/21 documented as of this encounter
--- OUTSIDE RECORDS SUMMARY | 2025-05-08 17:34 | XMS_ITS | Encounter Summary ---
Author Organization [facility] and [facility] Address [address] [place] [address] Care Team Providers Care Ice Guard Inspector Name Role Phone Caitlyn Bowie MD Primary Care Provider +1- [phone] Encounter Details Date Type Department Care Team ([facility] st Contact Info) Description 04/26/2021 Scanned Document INTERFACE DEFAULT [address] [place] [address] System, Provider Not In Social History Tobacco [...] as of this encounter Care Teams Ice Guard Inspector Relationship Specialty Start Date End Date Caitlyn Bowie MD [address] [address] PCP - General Internal Medicine 05/06/21 documented as of this encounter
--- OUTSIDE RECORDS SUMMARY | 2025-05-08 17:34 | XMS_ITS | Encounter Summary ---
Author Organization [facility] and [facility] Address [address] [place] [address] Care Team Providers Care Oracle Pl Sql Developer Name Role Phone Caitlyn Bowie MD Primary Care Provider +1- [phone] Encounter Details Date Type Department Care Team ([facility] st Contact Info) Description 04/28/2021 Scanned Document INTERFACE DEFAULT [address] [place] [address] System, Provider Not In Social History Tobacco [...] as of this encounter Care Teams Oracle Pl Sql Developer Relationship Specialty Start Date End Date Caitlyn Bowie MD [address] [address] PCP - General Internal Medicine 05/06/21 documented as of this encounter
--- OUTSIDE RECORDS SUMMARY | 2025-05-08 17:34 | XMS_ITS | Encounter Summary ---
Author Organization [facility] Address [address] [place] [address] Care Team Providers Care Information Clerk [employer]obile Club Name Role Phone Caitlyn Bowie MD Primary Care Provider +1- [phone] Encounter Details Date Type Department Care Team ([facility] st Contact Info) Description 05/16/2023 Scanned Document INTERFACE DEFAULT [address] [place] [address] System, Provider Not In Social History Tobacco [...] as of this encounter Care Teams Information Clerk [employer]obile Club Relationship Specialty Start Date End Date Caitlyn Bowie MD [address] [address] PCP - General Internal Medicine 05/06/21 documented as of this encounter
--- OUTSIDE RECORDS SUMMARY | 2025-05-08 17:34 | XMS_ITS | Encounter Summary ---
Author Organization [facility] and [facility] Address [address] [place] [address] Care Team Providers Care Belt Back Operator Name Role Phone Caitlyn Bowie MD Primary Care Provider +1- [phone] Encounter Details Date Type Department Care Team ([facility] st Contact Info) Description 06/27/2022 Scanned Document INTERFACE DEFAULT [address] [place] [address] System, Provider Not In Social History Tobacco [...] as of this encounter Care Teams Belt Back Operator Relationship Specialty Start Date End Date Caitlyn Bowie MD [address] [address] PCP - General Internal Medicine 05/06/21 documented as of this encounter
--- OUTSIDE RECORDS SUMMARY | 2025-05-08 17:34 | XMS_ITS | Encounter Summary ---
Author Organization [facility] and [facility] Address [address] [place] [address] Care Team Providers Care Bioinformatics Computer Scientist Name Role Phone Caitlyn Bowie MD Primary Care Provider +1- [phone] Encounter Details Date Type Department Care Team ([facility] st Contact Info) Description 06/21/2022 Scanned Document INTERFACE DEFAULT [address] [place] [address] System, Provider Not In Social History Tobacco [...] as of this encounter Care Teams Bioinformatics Computer Scientist Relationship Specialty Start Date End Date Caitlyn Bowie MD [address] [address] PCP - General Internal Medicine 05/06/21 documented as of this encounter
--- OUTSIDE RECORDS SUMMARY | 2025-05-08 17:34 | XMS_ITS | Encounter Summary ---
Author Organization [facility] and [facility] Address [address] [place] [address] Care Team Providers Care Supervisor [employer] Name Role Phone Caitlyn Bowie MD Primary Care Provider +1- [phone] Encounter Details Date Type Department Care Team ([facility] st Contact Info) Description 04/24/2021 Scanned Document INTERFACE DEFAULT [address] [place] [address] System, Provider Not In Social History Tobacco [...] as of this encounter Care Teams Supervisor [employer] Relationship Specialty Start Date End Date Caitlyn Bowie MD [address] [address] PCP - General Internal Medicine 05/06/21 documented as of this encounter
--- OUTSIDE RECORDS SUMMARY | 2025-05-08 17:34 | XMS_ITS | Encounter Summary ---
Author Organization [facility] and [facility] Address [address] [place] [address] Care Team Providers Care Customer Engagement Specialist Name Role Phone Caitlyn Bowie MD Primary Care Provider +1- [phone] Encounter Details Date Type Department Care Team (Late st Contact Info) Description 09/09/2021 Scanned Document INTERFACE DEFAULT [address] [place] [address] System, Provider Not In Social History Tobacco [...] of this encounter Care Teams Customer Engagement Specialist Relationship Specialty Start Date End Date Caitlyn Bowie MD [address] [address] PCP - General Internal Medicine 05/06/21 documented as of this encounter
--- OUTSIDE RECORDS SUMMARY | 2025-05-08 17:34 | XMS_ITS | Encounter Summary ---
Author Organization [facility] and [facility] Address [address] [place] [address] Care Team Providers Care Sanitation Engineer Name Role Phone Caitlyn Bowie MD Primary Care Provider +1- [phone] Encounter Details Date Type Department Care Team (Late st Contact Info) Description 06/23/2022 Scanned Document INTERFACE DEFAULT [address] [place] [address] System, Provider Not In Social History Tobacco [...] documented as of this encounter Care Teams Sanitation Engineer Relationship Specialty Start Date End Date Caitlyn Bowie MD [address] [address] PCP - General Internal Medicine 05/06/21 documented as of this encounter
--- OUTSIDE RECORDS SUMMARY | 2025-05-08 17:34 | XMS_ITS | Encounter Summary ---
Author Organization [facility] and [facility] Address [address] [place] [address] Care Team Providers Care Qualitative Researcher Name Role Phone Caitlyn Bowie MD Primary Care Provider +1- [phone] Encounter Details Date Type Department Care Team (Late st Contact Info) Description 12/23/2022 Scanned Document INTERFACE DEFAULT [address] [place] [address] System, Provider Not In Social History Tobacco [...] as of this encounter Care Teams Qualitative Researcher Relationship Specialty Start Date End Date Caitlyn Bowie MD [address] [address] PCP - General Internal Medicine 05/06/21 documented as of this encounter
--- OUTSIDE RECORDS SUMMARY | 2025-05-08 17:34 | XMS_ITS | Encounter Summary ---
Author Organization [facility] and [facility] Address [address] [place] [address] Care Team Providers Care Employee Relations Advisor Name Role Phone Caitlyn Bowie MD Primary Care Provider +1- [phone] Encounter Details Date Type Department Care Team ([facility] st Contact Info) Description 06/20/2022 Scanned Document INTERFACE DEFAULT [address] [place] [address] System, Provider Not In Social History Tobacco [...] as of this encounter Care Teams Employee Relations Advisor Relationship Specialty Start Date End Date Caitlyn Bowie MD [address] [address] PCP - General Internal Medicine 05/06/21 documented as of this encounter
--- OUTSIDE RECORDS SUMMARY | 2025-05-08 17:34 | XMS_ITS | Encounter Summary ---
Author Organization [facility] and [facility] Address [address] [place] [address] Care Team Providers Care Striper Machine Name Role Phone Caitlyn Bowie MD Primary Care Provider +1- [phone] Encounter Details Date Type Department Care Team (Late st Contact Info) Description 07/08/2022 Scanned Document Cardiovascular Medicine at 175 [facility] THIRD [place]LO[place], [place] [address] Norma Renee MD [address] [place] [phone] Social History Tobacco Use Types Packs/Day Years [...] documented as of this encounter Care Teams Striper Machine Relationship Specialty Start Date End Date Caitlyn Bowie MD [address] [address] PCP - General Internal Medicine 05/06/21 documented as of this encounter
--- OUTSIDE RECORDS SUMMARY | 2025-05-08 17:35 | XMS_ITS | Encounter Summary ---
Author Organization [facility] and [facility] Address [address] [place] [address] Care Team Providers Care Tapering Machine Operator Name Role Phone Caitlyn Bowie MD Primary Care Provider +1- [phone] Encounter Details Date Type Department Care Team ([facility] st Contact Info) Description 04/22/2022 Scanned Document INTERFACE DEFAULT [address] [place] [address] System, Provider Not In Social History Tobacco [...] documented as of this encounter Care Teams Tapering Machine Operator Relationship Specialty Start Date End Date Caitlyn Bowie MD [address] [address] PCP - General Internal Medicine 05/06/21 documented as of this encounter
--- OUTSIDE RECORDS SUMMARY | 2025-05-08 17:35 | XMS_ITS | Encounter Summary ---
Author Organization [facility] and [facility] Address [address] [place] [address] Care Team Providers Care Crt Name Role Phone Caitlyn Bowie MD Primary Care Provider +1- [phone] Encounter Details Date Type Department Care Team (Late st Contact Info) Description 09/09/2015 Scanned Document [facility] Health Information Management [address] [place] [address] External, Provider Social History Tobacco Use Types [...] External LAB BLOOD ORDERABLES Final Res ult [facility] [place], [place], [facility] documented in this encounter Visit Diagnoses Not on filedocumented in this encounter Additional Health Concerns Infection Onset Date Last Indicated Resolved Time COVID-19 03/05/2022 03/05/2022 03/15/2022 7:18 PM EDT documented as of this encounter Care Teams Crt Relationship Specialty Start Date End Date Caitlyn Bowie MD 3400 [facility] 1 [place] [address] PCP - General Internal Medicine 05/06/21 Henry Kelly MD Pulmonary Department 175 [facility], [address] [place] [address] Physician Pulmonary Disease 09/06/17 06/22/20 documented as of this encounter
--- OUTSIDE RECORDS SUMMARY | 2025-05-08 17:35 | XMS_ITS | Encounter Summary ---
Author Organization [facility] and [facility] Address [address] [place] [address] Care Team Providers Care It Risk Advisor Name Role Phone Caitlyn Bowie MD Primary Care Provider +1- [phone] Encounter Details Date Type Department Care Team (Late st Contact Info) Description 12/06/2018 Scanned Document [facility] Health Information Management [address] [place] [address] External, Provider Social History Tobacco Use Types [...] as of this encounter Care Teams It Risk Advisor Relationship Specialty Start Date End Date Caitlyn Bowie MD 3400 [facility] 1 [place] [address] PCP - General Internal Medicine 05/06/21 Henry Kelly MD Pulmonary Department 175 [facility], [address] [place] [address] Physician Pulmonary Disease 09/06/17 06/22/20 documented as of this encounter
--- OUTSIDE RECORDS SUMMARY | 2025-05-08 17:35 | XMS_ITS | Encounter Summary ---
Author Organization [facility] and [facility] Address [address] [place] [address] Care Team Providers Care Customer Engineer Name Role Phone Caitlyn Bowie MD Primary Care Provider +1- [phone] Encounter Details Date Type Department Care Team ([facility] st Contact Info) Description 01/30/2019 Scanned Document [facility] Health Information Management [address] [place] [address] External, Provider Social History Tobacco Use Types [...] End Date Caitlyn Bowie MD [address] [address] PCP - General Internal Medicine 05/06/21 Henry Kelly MD Pulmonary Department [address] [place] [address], [address] [place] [address] Physician Pulmonary Disease 09/06/17 06/22/20 documented as of this encounter
--- OUTSIDE RECORDS SUMMARY | 2025-05-08 17:35 | XMS_ITS | Encounter Summary ---
Author Organization [facility] Address [address] [place] [address] Care Team Providers Care Outside Sales Consultant Name Role Phone Caitlyn Bowie MD Primary Care Provider +1- [phone] Encounter Details Date Type Department Care Team (Late st Contact Info) Description 01/28/2019 Scanned Document Cardiovascular Medicine at [address] [place] [address] Cristian Arreguin MBBS [address] [place] [address] Social History Tobacco Use [...] as of this encounter Care Teams Outside Sales Consultant Relationship Specialty Start Date End Date Caitlyn Bowie MD 3400 [facility] 1 [place] [address] PCP - General Internal Medicine 05/06/21 Henry Kelly MD Pulmonary Department 175 [facility], [address] [place] [address] Physician Pulmonary Disease 09/06/17 06/22/20 documented as of this encounter
--- OUTSIDE RECORDS SUMMARY | 2025-05-08 17:35 | XMS_ITS | Encounter Summary ---
Author Organization [facility] and [facility] Address [address] [place] [address] Care Team Providers Care News Department Intern Name Role Phone Caitlyn Bowie MD Primary Care Provider +1- [phone] Encounter Details Date Type Department Care Team ([facility] st Contact Info) Description 04/16/2022 Scanned Document INTERFACE DEFAULT [address] [place] [address] System, Provider Not In Social History Tobacco [...] as of this encounter Care Teams News Department Intern Relationship Specialty Start Date End Date Caitlyn Bowie MD [address] [address] PCP - General Internal Medicine 05/06/21 documented as of this encounter
--- OUTSIDE RECORDS SUMMARY | 2025-05-08 17:35 | XMS_ITS | Encounter Summary ---
Author Organization [facility] Address [address] [place] [address] Care Team Providers Care Weapons Officer Naval Activity Name Role Phone Caitlyn Bowie MD Primary Care Provider +1- [phone] Encounter Details Date Type Department Care Team (Late st Contact Info) Description 03/20/2023 Scanned Document [facility] Radiology [address] [place] [address] Caitlyn Bowie MD [address]00 [place] [address] Social History Tobacco Use Types Packs/Day Years [...] on filedocumented in this encounter Care Teams Weapons Officer [employer] Relationship Specialty Start Date End Date Caitlyn Bowie MD 3400 [place] [address] PCP - General Internal Medicine 03/20/23 documented as of this encounter
--- OUTSIDE RECORDS SUMMARY | 2025-05-08 17:35 | XMS_ITS | Encounter Summary ---
Author Organization [facility] and [facility] Address [address] [place] [address] Care Team Providers Care Child And Family Services Specialist Name Role Phone Caitlyn Bowie MD Primary Care Provider +1- [phone] Encounter Details Date Type Department Care Team ([facility] st Contact Info) Description 04/28/2022 Scanned Document INTERFACE DEFAULT [address] [place] [address] System, Provider Not In Social History Tobacco [...] as of this encounter Care Teams Child And Family Services Specialist Relationship Specialty Start Date End Date Caitlyn Bowie MD [address] [address] PCP - General Internal Medicine 05/06/21 documented as of this encounter
--- OUTSIDE RECORDS SUMMARY | 2025-05-08 17:35 | XMS_ITS | Encounter Summary ---
Author Organization [facility] and [facility] Address [address] [place] [address] Care Team Providers Care Sheet Metal Insulator Name Role Phone Caitlyn Bowie MD Primary Care Provider +1- [phone] Encounter Details Date Type Department Care Team (Late st Contact Info) Description 11/04/2015 Scanned Document [facility] Health Information Management [address] [place] [address] External, Provider Social History Tobacco Use Types [...] REPORTS Edited Result - Final [facility] [place], [place], [facility] documented in this encounter Visit Diagnoses Not on filedocumented in this encounter Additional Health Concerns Infection Onset Date Last Indicated Resolved Time COVID-19 03/05/2022 03/05/2022 03/15/2022 7:18 PM EDT documented as of this encounter Care Teams Sheet Metal Insulator Relationship Specialty Start Date End Date Caitlyn Bowie MD 3400 [facility] 1 [place] [address] PCP - General Internal Medicine 05/06/21 Henry Kelly MD Pulmonary Department 175 [facility], [address] [place] [address] Physician Pulmonary Disease 09/06/17 06/22/20 documented as of this encounter
--- OUTSIDE RECORDS SUMMARY | 2025-05-08 17:35 | XMS_ITS | Encounter Summary ---
Author Organization [facility] and [facility] Address [address] [place] [address] Care Team Providers Care Assembly Machine Offbearer Name Role Phone Caitlyn Bowie MD Primary Care Provider +1- [phone] Encounter Details Date Type Department Care Team (Late st Contact Info) Description 04/18/2022 Scanned Document INTERFACE DEFAULT [address] [place] [address] System, Provider Not In Social History Tobacco [...] of this encounter Care Teams Assembly Machine Offbearer Relationship Specialty Start Date End Date Caitlyn Bowie MD [address] [address] PCP - General Internal Medicine 05/06/21 documented as of this encounter
--- OUTSIDE RECORDS SUMMARY | 2025-05-08 17:35 | XMS_ITS | Encounter Summary ---
Author Organization [facility] and [facility] Address [address] [place] [address] Care Team Providers Care Alarm Installation Technician Name Role Phone Caitlyn Bowie MD Primary Care Provider +1- [phone] Encounter Details Date Type Department Care Team ([facility] st Contact Info) Description 01/08/2022 Scanned Document INTERFACE DEFAULT [address] [place] [address] System, Provider Not In Social History Tobacco [...] as of this encounter Care Teams Alarm Installation Technician Relationship Specialty Start Date End Date Caitlyn Bowie MD [address] [address] PCP - General Internal Medicine 05/06/21 documented as of this encounter
--- OUTSIDE RECORDS SUMMARY | 2025-05-08 17:35 | XMS_ITS | Encounter Summary ---
Author Organization [facility] and [facility] Address [address] [place] [address] Care Team Providers Care Seed Technician Name Role Phone Caitlyn Bowie MD Primary Care Provider +1- [phone] Reason for Visit * Reason Comments Results Encounter Details Date Type Department Care Team (Late st Contact Info) Description 03/15/2022 Telephone [facility] at [address] [address] Ronald Mills MD [address] [place] [phone] Results Social History Tobacco Use Types [...] as of this encounter Care Teams Seed Technician Relationship Specialty Start Date End Date Caitlyn Bowie MD [address] [address] PCP - General Internal Medicine 05/06/21 documented as of this encounter
--- OUTSIDE RECORDS SUMMARY | 2025-05-08 17:35 | XMS_ITS | Encounter Summary ---
Author Organization [facility] and [facility] Address [address] [place] [address] Care Team Providers Care Operating Cost Clerk Name Role Phone Caitlyn Bowie MD Primary Care Provider +1- [phone] Encounter Details Date Type Department Care Team (Late st Contact Info) Description 01/26/2019 Scanned Document [facility] Health Information Management [address] [place] [address] External, Provider Social History Tobacco Use Types [...] as of this encounter Care Teams Operating Cost Clerk Relationship Specialty Start Date End Date Caitlyn Bowie MD 3400 [facility] 1 [place] [address] PCP - General Internal Medicine 05/06/21 Henry Kelly MD Pulmonary Department 175 [facility], [address] [place] [address] Physician Pulmonary Disease 09/06/17 06/22/20 documented as of this encounter
--- OUTSIDE RECORDS SUMMARY | 2025-05-08 17:35 | XMS_ITS | Encounter Summary ---
Author Organization [facility] and [facility] Address [address] [place] [address] Care Team Providers Care Medical Appliance Maker Name Role Phone Caitlyn Bowie MD Primary Care Provider +1- [phone] Encounter Details Date Type Department Care Team (Late st Contact Info) Description 12/01/2015 Scanned Document [facility] Health Information Management [address] [place] [address] External, Provider Social History Tobacco Use Types [...] Result - Final [facility] [place], [place], [facility] documented in this encounter Visit Diagnoses Not on filedocumented in this encounter Additional Health Concerns Infection Onset Date Last Indicated Resolved Time COVID-19 03/05/2022 03/05/2022 03/15/2022 7:18 PM EDT documented as of this encounter Care Teams Medical Appliance Maker Relationship Specialty Start Date End Date Caitlyn Bowie MD [address] [address] PCP - General Internal Medicine 05/06/21 Henry Kelly MD Pulmonary Department 175 [facility], [address] [place] [address] Physician Pulmonary Disease 09/06/17 06/22/20 documented as of this encounter
--- OUTSIDE RECORDS SUMMARY | 2025-05-08 17:35 | XMS_ITS | Encounter Summary ---
Author Organization [facility] and [facility] Address [address] [place] [address] Care Team Providers Care Music Copyist Name Role Phone Caitlyn Bowie MD Primary Care Provider +1- [phone] Encounter Details Date Type Department Care Team ([facility] st Contact Info) Description 05/02/2022 Scanned Document INTERFACE DEFAULT [address] [place] [address] System, Provider Not In Social History Tobacco [...] End Date Caitlyn Bowie MD [address] [address] PCP - General Internal Medicine 05/06/21 documented as of this encounter
--- OUTSIDE RECORDS SUMMARY | 2025-05-08 17:35 | XMS_ITS | Encounter Summary ---
Author Organization [facility] Address [address] [place] [address] Care Team Providers Care Commissary Representative Name Role Phone Caitlyn Bowie MD Primary Care Provider +1- [phone] Encounter Details Date Type Department Care Team (Late st Contact Info) Description 05/10/2022 Scanned Document Cardiovascular Medicine at [facility] THIRD [place], [place] [address] Norma Renee MD [address] [place] [phone] Social History Tobacco Use Types Packs/Day Years [...] End Date Caitlyn Bowie MD [address] [address] PCP - General Internal Medicine 05/06/21 documented as of this encounter
--- OUTSIDE RECORDS SUMMARY | 2025-05-08 17:35 | XMS_ITS | Encounter Summary ---
Author Organization [facility] and [facility] Address [address] [place] [address] Care Team Providers Care Page Makeup System Operator Name Role Phone Caitlyn Bowie MD Primary Care Provider +1- [phone] Encounter Details Date Type Department Care Team ([facility] st Contact Info) Description 09/28/2015 Scanned Document [facility] Health Information Management [address] [place] [address] External, Provider Social History Tobacco Use Types [...] External LAB BLOOD ORDERABLES Final Res ult [facility] [place], [place], [facility] documented in this encounter Visit Diagnoses Not on filedocumented in this encounter Additional Health Concerns Infection Onset Date Last Indicated Resolved Time COVID-19 03/05/2022 03/05/2022 03/15/2022 7:18 PM EDT documented as of this encounter Care Teams Page Makeup System Operator Relationship Specialty Start Date End Date Caitlyn Bowie MD 3400 [facility] 1 [place] [address] PCP - General Internal Medicine 05/06/21 Henry Kelly MD Pulmonary Department 175 [facility], [address] [place] [address] Physician Pulmonary Disease 09/06/17 06/22/20 documented as of this encounter
--- OUTSIDE RECORDS SUMMARY | 2025-05-08 17:35 | XMS_ITS | Encounter Summary ---
Author Organization [facility] and [facility] Address [address] [place] [address] Care Team Providers Care Administrative Support Associate Name Role Phone Caitlyn Bowie MD Primary Care Provider +1- [phone] Encounter Details Date Type Department Care Team ([facility] st Contact Info) Description 04/12/2022 Scanned Document [facility] Health Information Management [address] [place] [address] External, Provider Social History Tobacco Use Types [...] End Date Caitlyn Bowie MD [address] [address] PCP - General Internal Medicine 05/06/21 documented as of this encounter
--- OUTSIDE RECORDS SUMMARY | 2025-05-08 17:35 | XMS_ITS | Encounter Summary ---
Author Organization [facility] and [facility] Address [address] [place] [address] Care Team Providers Care Landfill Grader Name Role Phone Caitlyn Bowie MD Primary Care Provider +1- [phone] Encounter Details Date Type Department Care Team ([facility] st Contact Info) Description 04/13/2022 Scanned Document INTERFACE DEFAULT [address] [place] [address] System, Provider Not In Social History Tobacco [...] as of this encounter Care Teams Landfill Grader Relationship Specialty Start Date End Date Caitlyn Bowie MD [address] [address] PCP - General Internal Medicine 05/06/21 documented as of this encounter
--- OUTSIDE RECORDS SUMMARY | 2025-05-08 17:35 | XMS_ITS | Encounter Summary ---
Author Organization [facility] and [facility] Address [address] [place] [address] Care Team Providers Care Construction Technology Instructor Name Role Phone Caitlyn Bowie MD Primary Care Provider +1- [phone] Encounter Details Date Type Department Care Team ([facility] st Contact Info) Description 10/23/2018 Scanned Document [facility] Health Information Management [address] [place] [address] External, Provider Social History Tobacco Use Types [...] as of this encounter Care Teams Construction Technology Instructor Relationship Specialty Start Date End Date Caitlyn Bowie MD [address] [address] PCP - General Internal Medicine 05/06/21 Henry Kelly MD Pulmonary Department 175 [facility], [address] [place] [address] Physician Pulmonary Disease 09/06/17 06/22/20 documented as of this encounter
--- OUTSIDE RECORDS SUMMARY | 2025-05-08 17:35 | XMS_ITS | Encounter Summary ---
Author Organization [facility] and [facility] Address [address] [place] [address] Care Team Providers Care Fermenter Helper Name Role Phone Caitlyn Bowie MD Primary Care Provider +1- [phone] Encounter Details Date Type Department Care Team (Late st Contact Info) Description 05/04/2022 Scanned Document INTERFACE DEFAULT [address] [place] [address] System, Provider Not In Social History Tobacco [...] as of this encounter Care Teams Fermenter Helper Relationship Specialty Start Date End Date Caitlyn Bowie MD [address] [address] PCP - General Internal Medicine 05/06/21 documented as of this encounter
--- OUTSIDE RECORDS SUMMARY | 2025-05-08 17:35 | XMS_ITS | Encounter Summary ---
Author Organization [facility] and [facility] Address [address] [place] [address] Care Team Providers Care Glassblower Name Role Phone Caitlyn Bowie MD Primary Care Provider +1- [phone] Encounter Details Date Type Department Care Team (Late st Contact Info) Description 11/03/2015 Scanned Document [facility] Health Information Management [address] [place] [phone] External, Provider Social History Tobacco Use Types [...] Result - Final [facility] [place], [place], [facility] documented in this encounter Visit Diagnoses Not on filedocumented in this encounter Additional Health Concerns Infection Onset Date Last Indicated Resolved Time COVID-19 03/05/2022 03/05/2022 03/15/2022 7:18 PM EDT documented as of this encounter Care Teams Glassblower Relationship Specialty Start Date End Date Caitlyn Bowie MD [address] [address] PCP - General Internal Medicine 05/06/21 Henry Kelly MD Pulmonary Department 175 [facility], [address] [place] [address] Physician Pulmonary Disease 09/06/17 06/22/20 documented as of this encounter
--- OUTSIDE RECORDS SUMMARY | 2025-05-08 17:35 | XMS_ITS | Encounter Summary ---
Author Organization [facility] and [facility] Address [address] [place] [address] Care Team Providers Care Major Assembly Lineman Name Role Phone Caitlyn Bowie MD Primary Care Provider +1- [phone] Encounter Details Date Type Department Care Team (Late st Contact Info) Description 09/09/2015 Scanned Document [facility] Health Information Management [address] [place] [address] External, Provider Social History Tobacco Use Types [...] BLOOD ORDERABLES Final Res ult [facility] [place], [place], [place] documented in this encounter Visit Diagnoses Not on filedocumented in this encounter Additional Health Concerns Infection Onset Date Last Indicated Resolved Time COVID-19 03/05/2022 03/05/2022 03/15/2022 7:18 PM EDT documented as of this encounter Care Teams Major Assembly Lineman Relationship Specialty Start Date End Date Caitlyn Bowie MD 3400 [facility] 1 [place] [address] PCP - General Internal Medicine 05/06/21 Henry Kelly MD Pulmonary Department 175 [facility], [address] [place] [address] Physician Pulmonary Disease 09/06/17 06/22/20 documented as of this encounter
--- OUTSIDE RECORDS SUMMARY | 2025-05-08 17:35 | XMS_ITS | Encounter Summary ---
Author Organization [facility] and [facility] Address [address] [place] [address] Care Team Providers Care Shoeshiner Name Role Phone Caitlyn Bowie MD Primary Care Provider +1- [phone] Encounter Details Date Type Department Care Team (Late st Contact Info) Description 12/03/2015 Scanned Document [facility] Health Information Management [address] [place] [address] External, Provider Social History Tobacco Use Types [...] BLOOD ORDERABLES Edited Re sult - Final [facility] [place], [facility] documented in this encounter Visit Diagnoses Not on filedocumented in this encounter Additional Health Concerns Infection Onset Date Last Indicated Resolved Time COVID-19 03/05/2022 03/05/2022 03/15/2022 7:18 PM EDT documented as of this encounter Care Teams Shoeshiner Relationship Specialty Start Date End Date Caitlyn Bowie MD 3400 [facility] 1 [place] [address] PCP - General Internal Medicine 05/06/21 Henry Kelly MD Pulmonary Department [address] [place] [address], [address] [place] [address] Physician Pulmonary Disease 09/06/17 06/22/20 documented as of this encounter
--- OUTSIDE RECORDS SUMMARY | 2025-05-08 17:35 | XMS_ITS | Encounter Summary ---
Author Organization [facility] and [facility] Address [address] [place] [address] Care Team Providers Care Timber Hewer Name Role Phone Caitlyn Bowie MD Primary Care Provider +1- [phone] Encounter Details Date Type Department Care Team (Late st Contact Info) Description 04/25/2022 Scanned Document INTERFACE DEFAULT [address] [place] [address] System, Provider Not In Social History Tobacco [...] as of this encounter Care Teams Timber Hewer Relationship Specialty Start Date End Date Caitlyn Bowie MD [address] [address] PCP - General Internal Medicine 05/06/21 documented as of this encounter
--- OUTSIDE RECORDS SUMMARY | 2025-05-08 17:35 | XMS_ITS | Encounter Summary ---
Author Organization [facility] and [facility] Address [address] [place] [address] Care Team Providers Care Dry Ice Maker Name Role Phone Caitlyn Bowie MD Primary Care Provider +1- [phone] Encounter Details Date Type Department Care Team (Late st Contact Info) Description 03/02/2022 Scanned Document [facility] Health Information Management [address] [place] [address] External, Provider Social History Tobacco Use Types [...] as of this encounter Care Teams Dry Ice Maker Relationship Specialty Start Date End Date Caitlyn Bowie MD [address] [address] PCP - General Internal Medicine 05/06/21 documented as of this encounter
--- OUTSIDE RECORDS SUMMARY | 2025-05-08 17:35 | XMS_ITS | Encounter Summary ---
Author Organization [facility] and [facility] Address [address] [place] [address] Care Team Providers Care Tumbling Barrel Painter Name Role Phone Caitlyn Bowie MD Primary Care Provider +1- [phone] Encounter Details Date Type Department Care Team (Late st Contact Info) Description 12/04/2018 Scanned Document [facility] Health Information Management [address] [place] [address] External, Provider Social History Tobacco Use Types [...] documented as of this encounter Care Teams Tumbling Barrel Painter Relationship Specialty Start Date End Date Caitlyn Bowie MD [address] [address] PCP - General Internal Medicine 05/06/21 Henry Kelly MD Pulmonary Department [address] [place] [address], [address] [place] [address] Physician Pulmonary Disease 09/06/17 06/22/20 documented as of this encounter
--- OUTSIDE RECORDS SUMMARY | 2025-05-08 17:35 | XMS_ITS | Encounter Summary ---
Author Organization [facility] and [facility] Address [address] [place] [address] Care Team Providers Care Clinical Laboratory Aides Teacher Name Role Phone Caitlyn Bowie MD Primary Care Provider +1- [phone] Encounter Details Date Type Department Care Team (Late st Contact Info) Description 09/09/2015 Scanned Document [facility] Health Information Management [address] [place] [address] External, Provider Social History Tobacco Use Types [...] External LAB BLOOD ORDERABLES Final Res ult [facility] [place], [place], [place] documented in this encounter Visit Diagnoses Not on filedocumented in this encounter Additional Health Concerns Infection Onset Date Last Indicated Resolved Time COVID-19 03/05/2022 03/05/2022 03/15/2022 7:18 PM EDT documented as of this encounter Care Teams Clinical Laboratory Aides Teacher Relationship Specialty Start Date End Date Caitlyn Bowie MD 3400 [facility] 1 [place] [address] PCP - General Internal Medicine 05/06/21 Henry Kelly MD Pulmonary Department 175 [facility], [address] [place] [address] Physician Pulmonary Disease 09/06/17 06/22/20 documented as of this encounter
--- OUTSIDE RECORDS SUMMARY | 2025-05-08 17:35 | XMS_ITS | Encounter Summary ---
Author Organization [facility] and [facility] Address [address] [place] [address] Care Team Providers Care Talent Recruiter Name Role Phone Caitlyn Bowie MD Primary Care Provider +1- [phone] Encounter Details Date Type Department Care Team ([facility] st Contact Info) Description 04/19/2023 Scanned Document INTERFACE DEFAULT [address] [place] [phone] System, Provider Not In Social History Tobacco [...] Caitlyn Bowie MD [address] [address] PCP - General Internal Medicine 05/06/21 documented as of this encounter
--- OUTSIDE RECORDS SUMMARY | 2025-05-08 17:35 | XMS_ITS | Encounter Summary ---
Author Organization [facility] and [facility] Address [address] [place] [address] Care Team Providers Care Oil And Gas Well Treatment Operator Name Role Phone Caitlyn Bowie MD Primary Care Provider +1- [phone] Encounter Details Date Type Department Care Team (Late st Contact Info) Description 12/31/2015 Scanned Document [facility] [address] [place] [phone] External, Provider Social History Tobacco Use Types [...] LAB BLOOD ORDERABLES Final Res ult [facility] [place], [place], [facility] documented in this encounter Visit Diagnoses Not on filedocumented in this encounter Additional Health Concerns Infection Onset Date Last Indicated Resolved Time COVID-19 03/05/2022 03/05/2022 03/15/2022 7:18 PM EDT documented as of this encounter Care Teams Oil And Gas Well Treatment Operator Relationship Specialty Start Date End Date Caitlyn Bowie MD 3400 [facility] 1 [place] [address] PCP - General Internal Medicine 05/06/21 Henry Kelly MD Pulmonary Department [address] [place] [address], [address] [place] [address] Physician Pulmonary Disease 09/06/17 06/22/20 documented as of this encounter
--- OUTSIDE RECORDS SUMMARY | 2025-05-08 17:35 | XMS_ITS | Encounter Summary ---
Author Organization [facility] and [facility] Address [address] [place] [address] Care Team Providers Care Sales Service Manager Name Role Phone Caitlyn Bowie MD Primary Care Provider +1- [phone] Encounter Details Date Type Department Care Team (Late st Contact Info) Description 12/16/2015 Scanned Document [facility] Health Information Management [address] [place] [address] External, Provider Social History Tobacco Use Types [...] IMG SCAN REPORTS Edited Result - Final [facility] [place], [place], [facility] documented in this encounter Visit Diagnoses Not on filedocumented in this encounter Additional Health Concerns Infection Onset Date Last Indicated Resolved Time COVID-19 03/05/2022 03/05/2022 03/15/2022 7:18 PM EDT documented as of this encounter Care Teams Sales Service Manager Relationship Specialty Start Date End Date Caitlyn Bowie MD [address] [address] PCP - General Internal Medicine 05/06/21 Henry Kelly MD Pulmonary Department 175 [facility], [address] [place] [address] Physician Pulmonary Disease 09/06/17 06/22/20 documented as of this encounter
--- OUTSIDE RECORDS SUMMARY | 2025-05-08 17:35 | XMS_ITS | Encounter Summary ---
Author Organization [facility] and [facility] Address [address] [place] [address] Care Team Providers Care Chief Embalmer Name Role Phone Caitlyn Bowie MD Primary Care Provider +1- [phone] Encounter Details Date Type Department Care Team ([facility] st Contact Info) Description 03/12/2019 Scanned Document [facility] Health Information Management [address] [place] [address] External, Provider Social History Tobacco Use Types [...] as of this encounter Care Teams Chief Embalmer Relationship Specialty Start Date End Date Caitlyn Bowie MD [address] [address] PCP - General Internal Medicine 05/06/21 Henry Kelly MD Pulmonary Department [address] [place] [address], [address] [place] [address] Physician Pulmonary Disease 09/06/17 06/22/20 documented as of this encounter
--- OUTSIDE RECORDS SUMMARY | 2025-05-08 17:35 | XMS_ITS | Encounter Summary ---
Author Organization [facility] and [facility] Address [address] [place] [address] Care Team Providers Care Cup Machine Operator Name Role Phone Caitlyn Bowie MD Primary Care Provider +1- [phone] Encounter Details Date Type Department Care Team ([facility] st Contact Info) Description 04/18/2025 Scanned Document INTERFACE DEFAULT [address] [place] [address] System, Provider Not In Social History Tobacco [...] EDT LAB SCAN 04/18/2025 12:00 AM EDT documented in this encounter Results * Lab Scan (04/18/2025 12:00 AM EDT) us Provider Not In System LAB BLOOD ORDERABLES Carmina l Result * Lab Scan (04/18/2025 12:00 AM EDT) us Provider Not In System LAB BLOOD ORDERABLES Carmina l Result documented in this encounter Visit Diagnoses Not on filedocumented in this encounter Additional Health Concerns Assessment Noted Time PHQ-9 Depression Total Score: 2 11/07/19 19 2:06 PM EDT documented as of this encounter Care Teams Cup Machine Operator Relationship Specialty Start Date End Date Caitlyn Bowie MD [address] [address] PCP - General Internal Medicine 05/06/21 documented as of this encounter
--- OUTSIDE RECORDS SUMMARY | 2025-05-08 17:35 | XMS_ITS | Encounter Summary ---
Author Organization [facility] and [facility] Address [address] [place] [address] Care Team Providers Care Welt Slasher Name Role Phone Caitlyn Bowie MD Primary Care Provider +1- [phone] Encounter Details Date Type Department Care Team ([facility] st Contact Info) Description 04/19/2022 Scanned Document INTERFACE DEFAULT [address] [place] [phone] System, Provider Not In Social History Tobacco [...] as of this encounter Care Teams Welt Slasher Relationship Specialty Start Date End Date Caitlyn Bowie MD [address] [address] PCP - General Internal Medicine 05/06/21 documented as of this encounter
--- OUTSIDE RECORDS SUMMARY | 2025-05-08 17:35 | XMS_ITS | Encounter Summary ---
Author Organization [facility] and [facility] Address [address] [place] [address] Care Team Providers Care Dough Scaler And Mixer Name Role Phone Caitlyn Bowie MD Primary Care Provider +1- [phone] Encounter Details Date Type Department Care Team ([facility] st Contact Info) Description 04/11/2019 Scanned Document [facility] Health Information Management [address] [place] [address] External, Provider Social History Tobacco Use Types [...] as of this encounter Care Teams Dough Scaler And Mixer Relationship Specialty Start Date End Date Caitlyn Bowie MD [address] [address] PCP - General Internal Medicine 05/06/21 Henry Kelly MD Pulmonary Department [address] [place] [address], [address] [place] [address] Physician Pulmonary Disease 09/06/17 06/22/20 documented as of this encounter
--- OUTSIDE RECORDS SUMMARY | 2025-05-08 17:35 | XMS_ITS | Encounter Summary ---
Author Organization [facility] and [facility] Address [address] [place] [address] Care Team Providers Care Administrator Name Role Phone Caitlyn Bowie MD Primary Care Provider +1- [phone] Encounter Details Date Type Department Care Team (Late st Contact Info) Description 04/22/2019 Scanned Document [facility] Health Information Management [address] [place] [phone] External, Provider Social History Tobacco Use Types [...] documented as of this encounter Care Teams Administrator Relationship Specialty Start Date End Date Caitlyn Bowie MD [address] [address] PCP - General Internal Medicine 05/06/21 Henry Kelly MD Pulmonary Department [address] [place] [address], [address] [place] [address] Physician Pulmonary Disease 09/06/17 06/22/20 documented as of this encounter
--- OUTSIDE RECORDS SUMMARY | 2025-05-08 17:35 | XMS_ITS | Encounter Summary ---
Author Organization [facility] Address [address] [place] [address] Care Team Providers Care Recreational Vehicle Resort Manager Name Role Phone Caitlyn Bowie MD Primary Care Provider +1- [phone] Encounter Details Date Type Department Care Team (Late st Contact Info) Description 12/29/2021 Telephone [facility] at [address] - [address] [address] Ronald Mills MD [address] [place] [phone] Social History Tobacco Use Types Packs/Day [...] encounter Miscellaneous Notes * Telephone Encounter - Tyaa Nuno RN - 12/29/2021 3:33 PM EDT [...] not sure where the blood's coming from. [phone] documented in this encounter Plan of Treatment Not on file documented as of this encounter Visit Diagnoses Not on filedocumented in this encounter Additional Health Concerns Infection Onset Date Last Indicated Resolved Time COVID-19 03/05/2022 03/05/2022 03/15/2022 7:18 PM EDT Assessment Noted Time PHQ-9 Depression Total Score: 2 11/07/19 19 2:06 PM EDT documented as of this encounter Care Teams Recreational Vehicle Resort Manager Relationship Specialty Start Date End Date Caitlyn Bowie MD [facility] [address] [address] PCP - General Internal Medicine 05/06/21 documented as of this encounter
--- OUTSIDE RECORDS SUMMARY | 2025-05-08 17:35 | XMS_ITS | Encounter Summary ---
Author Organization [facility] Address [address] [place] [address] Care Team Providers Care Supervisor Telephone Information Name Role Phone Caitlyn Bowie MD Primary Care Provider +1- [phone] Encounter Details Date Type Department Care Team ([facility] st Contact Info) Description 08/28/2015 Scanned Document [facility] Health Information Management [address] [place] [address] External, Provider Social History Tobacco Use Types [...] of this encounter Care Teams Supervisor Telephone Information Relationship Specialty Start Date End Date Caitlyn Bowie MD [address] [address] PCP - General Internal Medicine 05/06/21 Henry Kelly MD Pulmonary Department 175 [facility], [address] [place] [address] Physician Pulmonary Disease 09/06/17 06/22/20 documented as of this encounter
--- OUTSIDE RECORDS SUMMARY | 2025-05-08 17:35 | XMS_ITS | Encounter Summary ---
Author Organization [facility] and [facility] Address [address] [place] [address] Care Team Providers Care Text Transcriber Name Role Phone Caitlyn Bowie MD Primary Care Provider +1- [phone] Encounter Details Date Type Department Care Team (Late st Contact Info) Description 01/28/2019 Scanned Document [facility] Health Information Management [address] [place] [address] External, Provider Social History Tobacco Use Types [...] documented as of this encounter Care Teams Text Transcriber Relationship Specialty Start Date End Date Caitlyn Bowie MD [address] [address] PCP - General Internal Medicine 05/06/21 Henry Kelly MD Pulmonary Department [address] [place] [address], [address] [place] [address] Physician Pulmonary Disease 09/06/17 06/22/20 documented as of this encounter
--- OUTSIDE RECORDS SUMMARY | 2025-05-08 17:35 | XMS_ITS | Encounter Summary ---
Author Organization [facility] and [facility] Address [address] [place] [address] Care Team Providers Care Program Writer Name Role Phone Caitlyn Bowie MD Primary Care Provider +1- [phone] Encounter Details Date Type Department Care Team (Late st Contact Info) Description 04/14/2022 Scanned Document INTERFACE DEFAULT [address] [place] [address] System, Provider Not In Social History Tobacco [...] as of this encounter Care Teams Program Writer Relationship Specialty Start Date End Date Caitlyn Bowie MD [address] [address] PCP - General Internal Medicine 05/06/21 documented as of this encounter
--- OUTSIDE RECORDS SUMMARY | 2025-05-08 17:35 | XMS_ITS | Encounter Summary ---
Author Organization [facility] and [facility] Address [address] [place] [address] Care Team Providers Care Washing Machine Installer Name Role Phone Caitlyn Bowie MD Primary Care Provider +1- [phone] Encounter Details Date Type Department Care Team ([facility] st Contact Info) Description 04/12/2022 Scanned Document INTERFACE DEFAULT [address] [place] [address] System, Provider Not In Social History Tobacco [...] documented as of this encounter Care Teams Washing Machine Installer Relationship Specialty Start Date End Date Caitlyn Bowie MD [address] [address] PCP - General Internal Medicine 05/06/21 documented as of this encounter
--- OUTSIDE RECORDS SUMMARY | 2025-05-08 17:35 | XMS_ITS | Encounter Summary ---
Author Organization [facility] Address [address] [place] [address] Care Team Providers Care Senior Premium Auditor Name Role Phone Caitlyn Bowie MD Primary Care Provider +1- [phone] Encounter Details Date Type Department Care Team ([facility] st Contact Info) Description 02/06/2019 Scanned Document [facility] Health Information Management [address] [place] [address] External, Provider Social History Tobacco Use Types [...] End Date Caitlyn Bowie MD [address] [address] PCP - General Internal Medicine 05/06/21 Henry Kelly MD Pulmonary Department [address] [place] [address], [address] [place] [address] Physician Pulmonary Disease 09/06/17 06/22/20 documented as of this encounter
--- OUTSIDE RECORDS SUMMARY | 2025-05-08 17:35 | XMS_ITS | Encounter Summary ---
Author Organization [facility] Address [address] [place] [address] Care Team Providers Care Prosthetic Aide Name Role Phone Caitlyn Bowie MD Primary Care Provider +1- [phone] Encounter Details Date Type Department Care Team ([facility] st Contact Info) Description 04/13/2023 Scanned Document INTERFACE DEFAULT [address] [place] [address] System, Provider Not In Social History Tobacco [...] as of this encounter Care Teams Prosthetic Aide Relationship Specialty Start Date End Date Caitlyn Bowie MD [address] [address] PCP - General Internal Medicine 05/06/21 documented as of this encounter
--- OUTSIDE RECORDS SUMMARY | 2025-05-08 17:35 | XMS_ITS | Encounter Summary ---
Author Organization [facility] Address [address] [place] [address] Care Team Providers Care Emergency Medical Service Coordinator Name Role Phone Pcp, No Primary Care Provider Brennan Mario MD Primary Care Provider [phone] Caitlyn Bowie MD Primary Care Provider +1- [phone] Encounter Details Date Type Department Care Team (Late st Contact Info) Description 01/04/[address] [facility] Neurology Ophthalmology [address] [address] Yary Whitten DO [address] [place] [address] Social History Tobacco Use Types Packs/Day [...] on filedocumented in this encounter Care Teams Emergency Medical Service Coordinator Relationship Specialty Start Date End Date Pcp, No PCP - General General Medicine 10/04/21 07/18/22 Brennan Burnett MD [address] [place] [address] PCP - General 07/19/22 03/19/23 Caitlyn Bowie MD [address] [place] [address] PCP - General Internal Medicine 03/20/23 documented as of this encounter
--- OUTSIDE RECORDS SUMMARY | 2025-05-08 17:35 | XMS_ITS | Encounter Summary ---
Author Organization [facility] Address [address] [place] [address] Care Team Providers Care Dry Ice Maker Name Role Phone Caitlyn Bowie MD Primary Care Provider +1- [phone] Encounter Details Date Type Department Care Team (Latest Contact Info) Description 12/25/2015 Transcribed Orders [facility] [address] [place] [address] [place] [address] Osmel Briscoe MD Other abnormality of red [...] * Free kappa lambda with ratio, serum (BH GH Q YH) (12/25/2015 10:09 AM EDT) Ig Canby Free Light Chain 1.84 0.33 - 1.94 mg/dL [facility] Ig Lambda Free Light Chain 1.96 0.57 - 2.63 mg/dL [facility] Canby/Lambda FLC Ratio 0.94 0.26 - 1.65 [facility] Blood specimen (specimen) 12/25/2015 10:09 AM EDT Osmel Briscoe MD LAB BLOOD ORDERABLES Final R esult Performing Organization Address [facility] Co de Phone Number [facility] [address] [place] [address] * Immunofixation, serum (GH L Q YH) (12/25/2015 10:09 AM EDT) Immunofixation Electrophoresis Gel See below See Interp. [facility] Comment: INTERPRETATION: Normal immunofixation electrophoresis. No evidence of a serum monoclonal component. SIGNED BY:Keyur KAYE MD ON 12/29/2015 14:56:04 INTERPRETATION REVIEW : I have reviewed these results and agree with this interpretation. Blood specimen (specimen) 12/25/2015 10:09 AM EDT Osmel Briscoe MD LAB BLOOD ORDERABLES Final R esult Performing Organization Address [facility] Co de Phone Number [facility] [address] [place] [address] * (ABNORMAL) Protein electrophoresis, serum (BH GH L YH) (12/25/2015 10:09 AM EDT) Albumin Electrophoresis 3.45(L) 3.50 - 4.70 g/dL [facility] Eqkti-0-Bupmlsat 0.16 0.10 - 0.30 g/dL [facility] Ysurj-2-Zyiurjse 0.81 0.60 - 1.00 g/dL [facility] [...] Final R esult Performing Organization Address [facility] Co de Phone Number [facility] [address] [place] [address] * Reticulocytes (GH L Q YH) (12/25/2015 10:09 AM EDT) Reticulocyte Count 2.1 0.6 - 2.7 % [facility] Blood specimen (specimen) 12/25/2015 10:09 AM EDT Osmel Briscoe MD LAB BLOOD ORDERABLES Final R esult Performing Organization Address [facility] Co de Phone Number [facility] [address] [place] [address] * (ABNORMAL) Sedimentation rate (ESR) (12/25/2015 10:09 AM EDT) Sed Rate 27(H) 0 - 20 mm/hr [facility] Blood specimen (specimen) 12/25/2015 10:09 AM EDT Osmel Briscoe MD LAB BLOOD ORDERABLES Final R esult Performing Organization Address [facility] Co de Phone Number [facility] [address] [place] [address] * Ferritin (12/25/2015 10:09 AM EDT) Ferritin 68 9 - 120 ng/mL [facility] Blood specimen (specimen) 12/25/2015 10:09 AM EDT us Osmel Briscoe MD LAB BLOOD ORDERABLES Final R esult Performing Organization Address [facility] de Phone Number [facility] [address] [place] [address] * Iron and TIBC (12/25/2015 10:09 AM EDT) Iron 110 50 - 170 ug/dL [facility] TIBC 290 250 - 450 ug/dL [facility] Iron Saturation 38 15 - 50 [facility] Blood specimen (specimen) 12/25/2015 10:09 AM EDT Osmel Briscoe MD LAB BLOOD ORDERABLES Final R esult Performing Organization Address [facility] de Phone Number [facility] [address] [place] [address] * Vitamin D 25 hydroxy (BH L [...] R esult Performing Organization Address [facility] Co de Phone Number [facility] [address] [place] [address] * TSH (BH L YH) (12/25/2015 10:09 AM EDT) TSH cancelled 0.3 - 4.2 uU/mL [facility] TSH 1.62 0.3 - 4.2 uU/mL [facility] Comment:This test is a third generation TSH assay. Blood specimen (specimen) 12/25/2015 10:09 AM EDT us Osmel Briscoe MD LAB BLOOD ORDERABLES Final R esult [facility] [address] [place] [address] * (ABNORMAL) CBC and differential (12/25/2015 10:09 AM EDT) Pathologist [facility] CBC with Differential See Below [facility] Monocytes 10 2 - 15 % [facility] Eosinophils 1 0 - 5 % [facility] Basophils 0 0 - 2 % [facility] ANC (Abs Neutrophil Count) 8.1 1.0 - 9.0 x 1000/uL [facility] Absolute Lymphocyte Count 0.7 0.6 - 4.6 x 1000/uL [facility] Blood specimen (specimen) ARM NEC / Unknown 12/25/2015 10:09 AM EDT us Osmel Briscoe MD LAB BLOOD ORDERABLES Final R esult [facility] [address] [place] [address] documented in this encounter Visit Diagnoses Diagnosis [...] Bowie MD 3400 [facility] 1 [place] [address] PCP - General Internal Medicine 05/06/21 Henry Kelly MD Pulmonary Department 175 [facility], [address] [place] [address] Physician Pulmonary Disease 09/06/17 06/22/20 documented as of this encounter
--- OUTSIDE RECORDS SUMMARY | 2025-05-08 17:35 | XMS_ITS | Encounter Summary ---
Author Organization [facility] Address [address] [place] [address] Care Team Providers Care Scout Leaser Name Role Phone Caitlyn Bowie MD Primary Care Provider +1- [phone] Encounter Details Date Type Department Care Team (Late st Contact Info) Description 09/24/2015 Scanned Document [facility] [address] [phone] Kevin Espinoza MD [address] [place] [phone] Social History Tobacco Use Types Packs/Day [...] documented as of this encounter Care Teams Scout Leaser Relationship Specialty Start Date End Date Caitlyn Bowie MD [address] [address] PCP - General Internal Medicine 05/06/21 Henry Kelly MD Pulmonary Department [address] [place] [address], [address] [place] [address] Physician Pulmonary Disease 09/06/17 06/22/20 documented as of this encounter
--- OUTSIDE RECORDS SUMMARY | 2025-05-08 17:36 | XMS_ITS | Clinical Summary ---
Author Organization Counts include 234 beds at the [facility] Address [address] [place] [address] Care Team Providers Care Automatic Glove Turner And Former Name Role Phone Caitlyn Bowie Primary Care Provider [phone] Allergies Active Allergy Reactions Criticality Noted Date [...] Throat tightness Throat tightness Throat tightness Ipratropium [place] Unknown Medium 12/18/2021 Isosorbide Mononitrate 11/23/2020 Other [...] topic Insurance MEDICARE PART A & [facility] Care Teams Automatic Glove Turner And Former Relationship Specialty Start Date End Date Caitlyn Bowie [address] [place] [address] PCP - General Internal Medicine 07/18/22
--- OUTSIDE RECORDS SUMMARY | 2025-05-08 17:36 | XMS_ITS | Encounter Summary ---
Author Organization [facility] Address [address] [place] [address] Care Team Providers Care Wound Care Technician Name Role Phone Caitlyn Bowie MD Primary Care Provider +1- [phone] Encounter Details Date Type Department Care Team ([facility] st Contact Info) Description 06/17/2016 Scanned Document [facility] Health Information Management [address] [place] [address] External, Provider Social History Tobacco Use Types [...] as of this encounter Care Teams Wound Care Technician Relationship Specialty Start Date End Date Caitlyn Bowie MD [address] [address] PCP - General Internal Medicine 05/06/21 Henry Kelly MD Pulmonary Department 175 [facility], [address] [place] [address] Physician Pulmonary Disease 09/06/17 06/22/20 documented as of this encounter
--- OUTSIDE RECORDS SUMMARY | 2025-05-08 17:36 | XMS_ITS | Encounter Summary ---
Author Organization [facility] Address [address] [place] [address] Care Team Providers Care Photographic Printer Name Role Phone Caitlyn Bowie MD Primary Care Provider +1- [phone] Encounter Details Date Type Department Care Team (Late st Contact Info) Description 12/16/2016 Scanned Document [facility] Health Information Management [address] [place] [address] External, Provider Social History Tobacco Use Types [...] as of this encounter Care Teams Photographic Printer Relationship Specialty Start Date End Date Caitlyn Bowie MD [address] [place] [facility] [address] [place] [address] PCP - General Internal Medicine 05/06/21 Henry Kelly MD Pulmonary Department 175 [facility], [address] [place] [address] Physician Pulmonary Disease 09/06/17 06/22/20 documented as of this encounter
--- OUTSIDE RECORDS SUMMARY | 2025-05-08 17:36 | XMS_ITS | Encounter Summary ---
Author Organization [facility] Address [address] [place] [address] Care Team Providers Care French Edge Operator Name Role Phone Caitlyn Bowie MD Primary Care Provider +1- [phone] Encounter Details Date Type Department Care Team (Late st Contact Info) Description 04/04/2016 Scanned Document [facility] Health Information Management [address] [place] [address] External, Provider Social History Tobacco Use Types [...] LAB BLOOD ORDERABLES Final Res ult [facility] [place], [place], [facility] documented in this encounter Visit Diagnoses Not on filedocumented in this encounter Additional Health Concerns Infection Onset Date Last Indicated Resolved Time COVID-19 03/05/2022 03/05/2022 03/15/2022 7:18 PM EDT documented as of this encounter Care Teams French Edge Operator Relationship Specialty Start Date End Date Caitlyn Bowie MD 3400 [facility] 1 [place] [address] PCP - General Internal Medicine 05/06/21 Henry Kelly MD Pulmonary Department 175 [facility], [address] [place] [address] Physician Pulmonary Disease 09/06/17 06/22/20 documented as of this encounter
--- OUTSIDE RECORDS SUMMARY | 2025-05-08 17:36 | XMS_ITS | Encounter Summary ---
Author Organization [facility] Address [address] [place] [address] Care Team Providers Care Podiatric Foot And Ankle Specialist Name Role Phone Caitlyn Bowie MD Primary Care Provider +1- [phone] Encounter Details Date Type Department Care Team (Late st Contact Info) Description 06/17/2016 Scanned Document [facility] Health Information Management [address] [place] [address] External, Provider Social History Tobacco Use Types [...] Provider External IMG SCAN REPORTS Final Result [facility] [place], [place], [facility] documented in this encounter Visit Diagnoses Not on filedocumented in this encounter Additional Health Concerns Infection Onset Date Last Indicated Resolved Time COVID-19 03/05/2022 03/05/2022 03/15/2022 7:18 PM EDT documented as of this encounter Care Teams Podiatric Foot And Ankle Specialist Relationship Specialty Start Date End Date Caitlyn Bowie MD [address] [facility] 1 [place] [address] PCP - General Internal Medicine 05/06/21 Henry Kelly MD Pulmonary Department 175 [facility], [address] [place] [address] Physician Pulmonary Disease 09/06/17 06/22/20 documented as of this encounter
--- OUTSIDE RECORDS SUMMARY | 2025-05-08 17:36 | XMS_ITS | Encounter Summary ---
Author Organization [facility] Address [address] [place] [address] Care Team Providers Care Returned Case Inspector Name Role Phone Caitlyn Bowie MD Primary Care Provider +1- [phone] Encounter Details Date Type Department Care Team (Late st Contact Info) Description 12/16/2016 Scanned Document [facility] Health Information Management [address] [place] [address] External, Provider Social History Tobacco Use Types [...] documented as of this encounter Care Teams Returned Case Inspector Relationship Specialty Start Date End Date Caitlyn Bowie MD 34[address] [facility] 1 [place] [address] PCP - General Internal Medicine 05/06/21 Henry Kelly MD Pulmonary Department 175 [facility], [address] [place] [address] Physician Pulmonary Disease 09/06/17 06/22/20 documented as of this encounter
--- OUTSIDE RECORDS SUMMARY | 2025-05-08 17:36 | XMS_ITS | Encounter Summary ---
Author Organization [facility] Address [address] [place] [address] Care Team Providers Care Certified Lactation Educator Name Role Phone Caitlyn Bowie MD Primary Care Provider +1- [phone] Encounter Details Date Type Department Care Team ([facility] st Contact Info) Description 12/27/2018 Scanned Document [facility] Health Information Management [address] [place] [address] External, Provider Social History Tobacco Use Types [...] encounter Results * Xray Result Scan (12/27/2018) Provider External IMG SCAN REPORTS Final Result documented in this encounter Visit Diagnoses Not on filedocumented in this encounter Additional Health Concerns Infection Onset Date Last Indicated Resolved Time COVID-19 03/05/2022 03/05/2022 03/15/2022 7:18 PM EDT Assessment Noted Time PHQ-9 Depression Total Score: 2 11/07/19 19 2:06 PM EDT documented as of this encounter Care Teams Certified Lactation Educator Relationship Specialty Start Date End Date Caitlyn Bowie MD 3400 [facility] 1 [place] [address] PCP - General Internal Medicine 05/06/21 eHnry Kelly MD Pulmonary Department 175 [facility], [address] [place] [address] Physician Pulmonary Disease 09/06/17 06/22/20 documented as of this encounter
--- OUTSIDE RECORDS SUMMARY | 2025-05-08 17:36 | XMS_ITS | Encounter Summary ---
Author Organization [facility] Address [address] [place] [address] Care Team Providers Care Service Clerk Name Role Phone Caitlyn Bowie MD Primary Care Provider +1- [phone] Encounter Details Date Type Department Care Team ([facility] st Contact Info) Description 02/08/2016 Scanned Document [facility] Health Information Management [address] [place] [address] External, Provider Social History Tobacco Use Types [...] as of this encounter Care Teams Service Clerk Relationship Specialty Start Date End Date Caitlyn Bowie MD [address] [address] PCP - General Internal Medicine 05/06/21 Henry Kelly MD Pulmonary Department 175 [facility], [address] [place] [address] Physician Pulmonary Disease 09/06/17 06/22/20 documented as of this encounter
--- OUTSIDE RECORDS SUMMARY | 2025-05-08 17:36 | XMS_ITS | Encounter Summary ---
Author Organization [facility] and [facility] Address [address] [place] [address] Care Team Providers Care Wallpaperer Name Role Phone Caitlyn Bowie MD Primary Care Provider +1- [phone] Encounter Details Date Type Department Care Team ([facility] st Contact Info) Description 09/15/2024 Scanned Document INTERFACE DEFAULT [address] [place] [address] System, Provider Not In Social History Tobacco [...] documented as of this encounter Care Teams Wallpaperer Relationship Specialty Start Date End Date Caitlyn Bowie MD [address] [address] PCP - General Internal Medicine 05/06/21 documented as of this encounter
--- OUTSIDE RECORDS SUMMARY | 2025-05-08 17:36 | XMS_ITS | Encounter Summary ---
Author Organization [facility] and [facility] Address [address] [place] [address] Care Team Providers Care Site Administrator Name Role Phone Caitlyn Bowie MD Primary Care Provider +1- [phone] Encounter Details Date Type Department Care Team ([facility] st Contact Info) Description 07/08/2016 Scanned Document [facility] Health Information Management [address] [place] [address] External, Provider Social History Tobacco Use Types [...] LAB BLOOD ORDERABLES Final Res ult [facility] [place], [place], [facility] documented in this encounter Visit Diagnoses Not on filedocumented in this encounter Additional Health Concerns Infection Onset Date Last Indicated Resolved Time COVID-19 03/05/2022 03/05/2022 03/15/2022 7:18 PM EDT documented as of this encounter Care Teams Site Administrator Relationship Specialty Start Date End Date Caitlyn Bowie MD 3400 [facility] 1 [place] [address] PCP - General Internal Medicine 05/06/21 Henry Kelly MD Pulmonary Department 175 [facility], [address] [place] [address] Physician Pulmonary Disease 09/06/17 06/22/20 documented as of this encounter
--- OUTSIDE RECORDS SUMMARY | 2025-05-08 17:36 | XMS_ITS | Encounter Summary ---
Author Organization [facility] and [facility] Address [address] [place] [address] Care Team Providers Care Social Services Manager Name Role Phone Caitlyn Bowie MD Primary Care Provider +1- [phone] Encounter Details Date Type Department Care Team ([facility] st Contact Info) Description 09/23/2024 Scanned Document INTERFACE DEFAULT [address] [place] [address] System, Provider Not In Social History Tobacco [...] as of this encounter Care Teams Social Services Manager Relationship Specialty Start Date End Date Caitlyn Bowie MD [address] [address] PCP - General Internal Medicine 05/06/21 documented as of this encounter
--- OUTSIDE RECORDS SUMMARY | 2025-05-08 17:36 | XMS_ITS | Encounter Summary ---
Author Organization [facility] and [facility] Address [address] [place] [address] Care Team Providers Care Pricing Analyst Name Role Phone Caitlyn Bowie MD Primary Care Provider +1- [phone] Encounter Details Date Type Department Care Team (Late st Contact Info) Description 07/27/2016 Scanned Document Thoracic Oncology Program at [facility] [address] [address] Suzy Kong MD 6 [place] [address] Social History Tobacco Use Types [...] End Date Caitlyn Bowie MD [address] [address] PCP - General Internal Medicine 05/06/21 Henry Kelly MD Pulmonary Department [address] [place] [address], [address] [place] [address] Physician Pulmonary Disease 09/06/17 06/22/20 documented as of this encounter
--- OUTSIDE RECORDS SUMMARY | 2025-05-08 17:36 | XMS_ITS | Encounter Summary ---
Author Organization [facility] and [facility] Address [address] [place] [address] Care Team Providers Care Ecology Teacher Name Role Phone Caitlyn Bowie MD Primary Care Provider +1- [phone] Encounter Details Date Type Department Care Team (Late st Contact Info) Description 04/08/2024 Scanned Document INTERFACE DEFAULT [address] [place] [address] System, Provider Not In Social History Tobacco [...] documented as of this encounter Care Teams Ecology Teacher Relationship Specialty Start Date End Date Caitlyn Bowie MD [address] [address] PCP - General Internal Medicine 05/06/21 documented as of this encounter
--- OUTSIDE RECORDS SUMMARY | 2025-05-08 17:36 | XMS_ITS | Clinical Summary ---
Author Organization [facility] Address [address] [place] [address] [place] [address] Phone Care Team Providers Care Sewer And Drain Technician Name Role Phone Caitlyn Bowie MD Primary Care Provider +1- [phone] Allergies Active Allergy Reactions Criticality Noted Date [...] [facility] [address] [place] [address] Marina Abdi 03/17/2025 Documentation Only [facility] [address] [place] [address] Marina Abdi 03/17/2025 Orders Only [facility] [address] [place] [address] Marina Abdi Smells of urine (Primary [...] Visit [facility] [address] [place] [phone] Rubén Ashraf MD [address] [place] [address] Health Maintenance Due Date Last Done Comments Influenza Vaccine (#1) 2025 0, 04/22/2019, 04/18/2016 Pneumococcal Vaccine: 50+ Years Completed 08/31/2021, 03/25/2016, 09/17/2015, Additional history exists Hepatitis B Vaccine Aged Out No longe r eligible based on patient's age to complete this topic Insurance Medicare [facility] Care Teams Sewer And Drain Technician Relationship Specialty Start Date End Date Caitlyn Bowie MD [address]00 [place], [place] PCP - General Internal Medicine 09/24/24
--- OUTSIDE RECORDS SUMMARY | 2025-05-08 17:36 | XMS_ITS | Clinical Summary ---
Author Organization [facility] Address [address] [place] [address] Phone Care Team Providers Care Application Development Team Lead Name Role Phone Caitlyn Bowie MD [...] (12/25/2021 4:22 PM EDT): Followed closely by subsurface augmentee operator-Dr. Ronald Mills at [facility]- advised to continue Coumadin anticoagulation at [...] (09/09/2021 10:42 PM EST): Followed closely by subsurface augmentee operator-Dr. Ronald Mills at [facility]- last seen on 08/05/2021 and advised [...] anticoagulation clinic to keep INR at 1.5-2.0. 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 Daily [...] alternating low dosing as prescribed by her associate programmer analyst and consider gentle taper when ready. Daily [...] AM EST Office Visit [facility] [address] [place] [address] [place] [address] Anna Ellis MD [address] [place] [address] [address] [facility] [place] [address] Health Maintenance Due Date Last Done Comments [...] MD LAB BLOOD ORDERABLES F inal Result [facility] [address] [place] [address] from Last 3 Months or Most Recently Relevant to Health Maintenance Insurance MEDICARE PART A & B [facility] MEDEX SUPPLEMENT HEALTH SAFETY [facility] MEDICARE PART A & B [facility] MEDEX SUPPLEMENT HEALTH SAFET[facility] MEDIC[facility] PART A & B [facility] MEDEX SUPPLEMENT HEALTH SAFETY [facility] MEDICARE PART A & B Member Subscriber Plan / Payer (Ef fective 1999-Present) Name:Jovana Malik Member ID:[id number] Relation to Subscriber:Self Name:Jovana Malik Subscriber ID:[id number] Payer ID:[id number] Group ID:Not on file Type:Medicare Address: [facility] [employer] [facility] [address] [place] [address] [facility] MEDEX SUPPLEMENT [facility] SAFETY [facility] MEDIC[facility] PART A & B [facility] MEDEX SUPPLEMENT HEALTH SAFETY [facility] MEDICARE PART A & B [facility] MEDEX SUPPLEMENT [facility] MEDICARE PART A & B [facility] MEDEX SUPPLEMENT HEALTH SAFETY [facility] MEDICARE PART A & B [facility] MEDEX SUPPLEMENT [facility] MEDICARE PART A & B [facility] MEDEX SUPPLEMENT [facility] SAFETY [facility] Care Teams Application Development Team Lead Relationship Specialty Start Date End Date Caitlyn Bowie MD 3400 [place] [address] PCP - General Internal Medicine 09/09/21 Additional Source Comments The information contained in this document represents components of the legal health record. It is not the complete legal health record.[facility]
--- OUTSIDE RECORDS SUMMARY | 2025-05-08 17:36 | XMS_ITS | Encounter Summary ---
Author Organization [facility] and [facility] Address [address] [place] [address] Care Team Providers Care Male Infertility Specialist Name Role Phone Caitlyn Bowie MD Primary Care Provider +1- [phone] Encounter Details Date Type Department Care Team ([facility] st Contact Info) Description 06/17/2016 Scanned Document [facility] Health Information Management [address] [place] [address] External, Provider Social History Tobacco Use Types [...] End Date Caitlyn Bowie MD [address] [address] PCP - General Internal Medicine 05/06/21 Henry Kelly MD Pulmonary Department 175 [facility], [address] [place] [address] Physician Pulmonary Disease 09/06/17 06/22/20 documented as of this encounter
--- OUTSIDE RECORDS SUMMARY | 2025-05-08 17:36 | XMS_ITS | Encounter Summary ---
Author Organization [facility] and [facility] Address [address] [place] [address] Care Team Providers Care Management Coordinator Name Role Phone Caitlyn Bowie MD Primary Care Provider +1- [phone] Encounter Details Date Type Department Care Team ([facility] st Contact Info) Description 01/09/2019 Scanned Document [facility] Health Information Management [address] [place] [address] External, Provider Social History Tobacco Use Types [...] encounter Results * Xray Result Scan (01/09/2019) Provider External IMG SCAN REPORTS Final Result documented in this encounter Visit Diagnoses Not on filedocumented in this encounter Additional Health Concerns Infection Onset Date Last Indicated Resolved Time COVID-19 03/05/2022 03/05/2022 03/15/2022 7:18 PM EDT Assessment Noted Time PHQ-9 Depression Total Score: 2 11/07/19 19 2:06 PM EDT documented as of this encounter Care Teams Management Coordinator Relationship Specialty Start Date End Date Caitlyn Bowie MD 3400 [facility] [address] [place] [address] PCP - General Internal Medicine 05/06/21 Henry Kelly MD Pulmonary Department 175 [facility], [address] [place] [address] Physician Pulmonary Disease 09/06/17 06/22/20 documented as of this encounter
--- OUTSIDE RECORDS SUMMARY | 2025-05-08 17:36 | XMS_ITS | Encounter Summary ---
Author Organization [facility] Address [address] [place] [address] Care Team Providers Care Medium Cycle Salesperson Name Role Phone Caitlyn Bowie MD Primary Care Provider +1- [phone] Encounter Details Date Type Department Care Team ([facility] st Contact Info) Description 10/10/2016 Scanned Document [facility] Health Information Management [address] [place] [address] External, Provider Social History Tobacco Use Types [...] documented as of this encounter Care Teams Medium Cycle Salesperson Relationship Specialty Start Date End Date Caitlyn Bowie MD [address] [address] PCP - General Internal Medicine 05/06/21 Henry Kelly MD Pulmonary Department 175 [facility], [address] [place] [address] Physician Pulmonary Disease 09/06/17 06/22/20 documented as of this encounter
--- OUTSIDE RECORDS SUMMARY | 2025-05-08 17:36 | XMS_ITS | Encounter Summary ---
Author Organization [facility] and [facility] Address [address] [place] [address] Care Team Providers Care Dietitian Research Name Role Phone Caitlyn Bowie MD Primary Care Provider +1- [phone] Encounter Details Date Type Department Care Team ([facility] st Contact Info) Description 08/08/2024 Scanned Document INTERFACE DEFAULT [address] [place] [address] System, Provider Not In Social History Tobacco [...] documented as of this encounter Care Teams Dietitian Research Relationship Specialty Start Date End Date Caitlyn Bowie MD [address] [address] PCP - General Internal Medicine 05/06/21 documented as of this encounter
--- OUTSIDE RECORDS SUMMARY | 2025-05-08 17:36 | XMS_ITS | Encounter Summary ---
Author Organization [facility] Address [address] [place] [address] Care Team Providers Care Disability Benefits Specialist Name Role Phone Caitlyn Bowie MD Primary Care Provider +1- [phone] Encounter Details Date Type Department Care Team ([facility] st Contact Info) Description 09/09/2024 Scanned Document INTERFACE DEFAULT [address] [place] [address] System, Provider Not In Social History Tobacco [...] as of this encounter Care Teams Disability Benefits Specialist Relationship Specialty Start Date End Date Caitlyn Bowie MD [address] [address] PCP - General Internal Medicine 05/06/21 documented as of this encounter
--- OUTSIDE RECORDS SUMMARY | 2025-05-08 17:36 | XMS_ITS | Encounter Summary ---
Author Organization [facility] and [facility] Address [address] [place] [address] Care Team Providers Care Blue Crabber Name Role Phone Caitlyn Bowie MD Primary Care Provider +1- [phone] Encounter Details Date Type Department Care Team ([facility] st Contact Info) Description 04/23/2024 Scanned Document INTERFACE DEFAULT [address] [place] [address] System, Provider Not In Social History Tobacco [...] documented as of this encounter Care Teams Blue Crabber Relationship Specialty Start Date End Date Caitlyn Bowie MD [address] [address] PCP - General Internal Medicine 05/06/21 documented as of this encounter
--- OUTSIDE RECORDS SUMMARY | 2025-05-08 17:36 | XMS_ITS | Encounter Summary ---
Author Organization [facility] Address [address] [place] [address] Care Team Providers Care Dialysis Rn Name Role Phone Caitlyn Bowie MD Primary Care Provider +1- [phone] Encounter Details Date Type Department Care Team (Late st Contact Info) Description 12/14/2016 Scanned Document [facility] Health Information Management [address] [place] [address] External, Provider Social History Tobacco Use Types [...] documented as of this encounter Care Teams Dialysis Rn Relationship Specialty Start Date End Date Caitlyn Bowie MD 3400 [facility] [address] [place] [address] PCP - General Internal Medicine 05/06/21 Henry Kelly MD Pulmonary Department 175 [facility], [address] [place] [address] Physician Pulmonary Disease 09/06/17 06/22/20 documented as of this encounter
--- OUTSIDE RECORDS SUMMARY | 2025-05-08 17:36 | XMS_ITS | Encounter Summary ---
Author Organization [facility] and [facility] Address [address] [place] [address] Care Team Providers Care Animal Husbandry Manager Name Role Phone Caitlyn Bowie MD Primary Care Provider +1- [phone] Reason for Referral * Imaging (Routine) - Closed Specialty Diagnoses / Procedures Referred By Arthur dobbs Referred To Contact Procedures NM Lung Ventilation Perfusion ([facility]) External, Provider Referral ID Status Reason Start Date Expiration Date Visits Re quested Visits Authorized [id number] Closed 08/22/2016 08/22/2017 4 4 Encounter Details Date Type Department Care Team (Late st Contact Info) Description 08/22/2016 Scanned Document Thoracic Oncology Program at [address] [address] External, Provider Social History Tobacco Use Types [...] SCAN REPORTS Final Result Performing Organization Address [facility] Co de Phone Number [facility] * CT Result Scan (07/27/2016) us Provider External IMG SCAN REPORTS Final Result Performing Organization Address [facility] Co de Phone Number [facility] * Cardiac EKG Result Scan (07/27/2016) us Provider External CV CARDIAC REPORT (CVR) Final Result Performing Organization Address [facility] Co de Phone Number [facility] * CT Result Scan (07/27/2016) us Provider External IMG SCAN REPORTS Final Result Performing Organization Address [facility] de Phone Number [facility] * Lab Scan (07/27/2016) Blood specimen (specimen) us Provider External LAB BLOOD ORDERABLES Final Res ult Performing Organization Address [facility] Co de Phone Number [facility] * NM Lung Ventilation Perfusion ([facility] [...] of this encounter Care Teams Animal Husbandry Manager Relationship Specialty Start Date End Date Caitlyn Bowie MD 3400 [facility] [address] [place] [address] PCP - General Internal Medicine 05/06/21 Henry Kelly MD Pulmonary Department 175 [facility], [address] [place] [address] Physician Pulmonary Disease 09/06/17 06/22/20 documented as of this encounter
--- OUTSIDE RECORDS SUMMARY | 2025-05-08 17:36 | XMS_ITS | Encounter Summary ---
Author Organization [facility] and [facility] Address [address] [place] [address] Care Team Providers Care Rn Mds Coordinator Name Role Phone Caitlyn Bowie MD Primary Care Provider +1- [phone] Encounter Details Date Type Department Care Team ([facility] st Contact Info) Description 10/23/2024 Scanned Document INTERFACE DEFAULT [address] [place] [address] System, Provider Not In Social History Tobacco [...] as of this encounter Care Teams Rn Mds Coordinator Relationship Specialty Start Date End Date Caitlyn Bowie MD [address] [address] PCP - General Internal Medicine 05/06/21 documented as of this encounter
--- OUTSIDE RECORDS SUMMARY | 2025-05-08 17:36 | XMS_ITS | Encounter Summary ---
Author Organization [facility] and [facility] Address [address] [place] [address] Care Team Providers Care Sales Ledger Administrator Name Role Phone Caitlyn Bowie MD Primary Care Provider +1- [phone] Encounter Details Date Type Department Care Team ([facility] st Contact Info) Description 01/17/2019 Scanned Document [facility] Health Information Management [address] [place] [address] External, Provider Social History Tobacco Use Types [...] as of this encounter Care Teams Sales Ledger Administrator Relationship Specialty Start Date End Date Caitlyn Bowie MD 3400 [facility] 1 [place] [address] PCP - General Internal Medicine 05/06/21 Henry Kelly MD Pulmonary Department 175 [facility], [address] [place] [address] Physician Pulmonary Disease 09/06/17 06/22/20 documented as of this encounter
--- OUTSIDE RECORDS SUMMARY | 2025-05-08 17:36 | XMS_ITS | Encounter Summary ---
Author Organization [facility] Address [address] [place] [address] Care Team Providers Care Pharmacist In Charge Name Role Phone Caitlyn Bowie MD Primary Care Provider +1- [phone] Encounter Details Date Type Department Care Team ([facility] st Contact Info) Description 01/13/2019 Scanned Document [facility] Health Information Management [address] [place] [address] External, Provider Social History Tobacco Use Types [...] as of this encounter Care Teams Pharmacist In Charge Relationship Specialty Start Date End Date Caitlyn Bowie MD 3400 [facility] 1 [place] [address] PCP - General Internal Medicine 05/06/21 Henry Kelly MD Pulmonary Department 175 [facility], [address] [place] [address] Physician Pulmonary Disease 09/06/17 06/22/20 documented as of this encounter
--- OUTSIDE RECORDS SUMMARY | 2025-05-08 17:36 | XMS_ITS | Encounter Summary ---
Author Organization [facility] Address [address] [place] [address] Care Team Providers Care Wheel Adjuster Name Role Phone Caitlyn Bowie MD Primary Care Provider +1- [phone] Encounter Details Date Type Department Care Team (Late st Contact Info) Description 07/27/2016 Scanned Document Thoracic Oncology Program at [facility] [address] [address] Suzy Kong MD 6 [place] [address] Social History Tobacco Use Types [...] as of this encounter Care Teams Wheel Adjuster Relationship Specialty Start Date End Date Caitlyn Bowie MD [address] [address] PCP - General Internal Medicine 05/06/21 Henry Kelly MD Pulmonary Department [address] [place] [address], [address] [place] [address] Physician Pulmonary Disease 09/06/17 06/22/20 documented as of this encounter
--- OUTSIDE RECORDS SUMMARY | 2025-05-08 17:36 | XMS_ITS | Encounter Summary ---
Author Organization [facility] and [facility] Address [address] [place] [address] Care Team Providers Care Sap Pi Architect Name Role Phone Caitlyn Bowie MD Primary Care Provider +1- [phone] Encounter Details Date Type Department Care Team ([facility] st Contact Info) Description 01/08/2019 Scanned Document [facility] Health Information Management [address] [place] [address] External, Provider Social History Tobacco Use Types [...] as of this encounter Care Teams Sap Pi Architect Relationship Specialty Start Date End Date Caitlyn Bowie MD [address] [address] PCP - General Internal Medicine 05/06/21 Henry Kelly MD Pulmonary Department [address] [place] [address], [address] [place] [address] Physician Pulmonary Disease 09/06/17 06/22/20 documented as of this encounter
--- OUTSIDE RECORDS SUMMARY | 2025-05-08 17:36 | XMS_ITS | Encounter Summary ---
Author Organization [facility] and [facility] Address [address] [place] [phone] Care Team Providers Care Animal Humane Agent Supervisor Name Role Phone Caitlyn Bowie MD Primary Care Provider +1- [phone] Encounter Details Date Type Department Care Team ([facility] st Contact Info) Description 04/19/2024 Scanned Document INTERFACE DEFAULT [address] [place] [phone] System, Provider Not In Social History Tobacco [...] as of this encounter Care Teams Animal Humane Agent Supervisor Relationship Specialty Start Date End Date Caitlyn Bowie MD [address] [address] PCP - General Internal Medicine 05/06/21 documented as of this encounter
--- OUTSIDE RECORDS SUMMARY | 2025-05-08 17:36 | XMS_ITS | Encounter Summary ---
Author Organization [facility] Address [address] [place] [phone] Care Team Providers Care Bedspread Inspector Name Role Phone Caitlyn Bowie MD Primary Care Provider +1- [phone] Encounter Details Date Type Department Care Team ([facility] st Contact Info) Description 01/02/2019 Scanned Document [facility] Health Information Management [address] [place] [phone] External, Provider Social History Tobacco Use Types [...] documented as of this encounter Care Teams Bedspread Inspector Relationship Specialty Start Date End Date Caitlyn Bowie MD [address] [facility] 1 [place] [address] PCP - General Internal Medicine 05/06/21 Henry Kelly MD Pulmonary Department [address] [facility], [address] [place] [address] Physician Pulmonary Disease 09/06/17 06/22/20 documented as of this encounter
--- OUTSIDE RECORDS SUMMARY | 2025-05-08 17:36 | XMS_ITS | Encounter Summary ---
Author Organization [facility] Address [address] [place] [phone] Care Team Providers Care Washhouse Worker Name Role Phone Caitlyn Bowie MD Primary Care Provider +1- [phone] Encounter Details Date Type Department Care Team ([facility] st Contact Info) Description 12/28/2018 Scanned Document [facility] Health Information Management [address] [place] [phone] External, Provider Social History Tobacco Use Types [...] documented as of this encounter Care Teams Washhouse Worker Relationship Specialty Start Date End Date Caitlyn Bowie MD [address] [facility] 1 [place] [address] PCP - General Internal Medicine 05/06/21 Henry Kelly MD Pulmonary Department [address] [facility], [address] [place] [address] Physician Pulmonary Disease 09/06/17 06/22/20 documented as of this encounter
--- OUTSIDE RECORDS SUMMARY | 2025-05-08 17:36 | XMS_ITS | Encounter Summary ---
Author Organization [facility] and [facility] Address [address] [place] [address] Care Team Providers Care Law Office Receptionist Name Role Phone Caitlyn Bowie MD Primary Care Provider +1- [phone] Encounter Details Date Type Department Care Team (Late st Contact Info) Description 07/27/2016 Scanned Document [facility] [address] [address] Suzy Kong MD 6 [place] [address] Social History Tobacco Use Types [...] as of this encounter Care Teams Law Office Receptionist Relationship Specialty Start Date End Date Caitlyn Bowie MD [address] [phone] PCP - General Internal Medicine 05/06/21 Henry Kelly MD Pulmonary Department [address] [place] [address], [address] [place] [address] Physician Pulmonary Disease 09/06/17 06/22/20 documented as of this encounter
--- OUTSIDE RECORDS SUMMARY | 2025-05-08 17:36 | XMS_ITS | Encounter Summary ---
Author Organization [facility] Address [address] [place] [phone] Care Team Providers Care Instrument Maker Apprentice Name Role Phone Caitlyn Bowie MD Primary Care Provider +1- [phone] Encounter Details Date Type Department Care Team ([facility] st Contact Info) Description 12/14/2016 Scanned Document [facility] Health Information Management [address] [place] [phone] External, Provider Social History Tobacco Use Types [...] of this encounter Care Teams Instrument Maker Apprentice Relationship Specialty Start Date End Date Caitlyn Bowie MD [address] [phone] PCP - General Internal Medicine 05/06/21 Henry Kelly MD Pulmonary Department 175 [facility], [address] [place] [address] Physician Pulmonary Disease 09/06/17 06/22/20 documented as of this encounter
--- OUTSIDE RECORDS SUMMARY | 2025-05-08 17:36 | XMS_ITS | Encounter Summary ---
Author Organization [facility] Address [address] [place] [address] Phone Care Team Providers Care Service Establishment Attendant Name Role Phone Caitlyn Bowie MD Primary Care Provider +1- [phone] Encounter Details Date Type Department Care Team (Late st Contact Info) Description 10/01/2024 Documentation Only [facility] [address] [place] [address] Ron Taylor [place] [address] [place] [address] Social History Tobacco Use Types [...] [facility] [address] [place] [address] Rubén Ashraf MD [address] [place] [address] [place] [address] documented as of this encounter Visit Diagnoses Not on filedocumented in this encounter Care Teams Service Establishment Attendant Relationship Specialty Start Date End Date Caitlyn Bowie MD [address] [place], [place] PCP - General Internal Medicine 09/24/24 documented as of this encounter
== END 2025-05-08 15:12 | disposition home or self-care (01) ==
LOC: HO.HPS 14:28
PROVIDERS: PCP Internal Medicine; Visit Provider Hospitalist
DX: J41.0 Simple chronic bronchitis (principal); J96.12 Chronic respiratory failure with hypercapnia; I27.20 Pulmonary hypertension, unspecified; R91.8 Other nonspecific abnormal finding of lung field; J96.11 Chronic respiratory failure with hypoxia; J70.1 Chronic and other pulmonary manifestations due to radiation; I50.32 Chronic diastolic (congestive) heart failure; C34.12 Malignant neoplasm of upper lobe, left bronchus or lung; J90 Pleural effusion, not elsewhere classified; G47.33 Obstructive sleep apnea (adult) (pediatric)
CPT/HCPCS: 99214; G2211

== ENCOUNTER 2025-05-16 15:19 | Outpatient (AMB) | payer MEDICARE, SELFPAY ==
--- NOTE | 2025-05-16 15:23 | MHC.OFFVIS ---
Vital Signs 05/16/25 15:24 Height 5 ft 2 in Weight 127 lb BMI 23.2 BP 108/54 L Blood Pressure Location Lt brachial Position Sitting Pulse 91 Pulse Source Pulse Oximeter Pulse Oximetry (%) 94 Oxygen Delivery Method Nasal Cannula Oxygen Flow Rate 2 Intake Visit Reasons: O2 sat decreased with exertion 86-92 on 2lpm cont Allergies morphine Allergy (Severe, Verified 05/18/25 08:18) Itching avocado (AVOCADO) Allergy (Mild, Verified 05/18/25 08:18) ITCHY THROAT, RASH azithromycin (AZITHROMYCIN) Allergy (Mild, Verified 05/18/25 08:18) ITCHY THROAT, RASH barium iodide (BARIUM IODIDE) Allergy (Mild, Verified 05/18/25 08:18) ITCHY THROAT, RASH barium sulfate Allergy (Mild, Verified 05/18/25 08:18) Itch bee pollen (BEE STINGS) Allergy (Mild, Verified 05/18/25 08:18) ITCHY THROAT, RASH ciprofloxacin (From CIPRO) Allergy (Mild, Verified 05/18/25 08:18) ITCHY THROAT, RASH clarithromycin (From BIAXIN) Allergy (Mild, Verified 05/18/25 08:18) ITCHY THROAT, RASH diatrizoate meglumine (From GASTROGRAFIN) Allergy (Mild, Verified 05/18/25 08:18) ITCHY THROAT, RASH diatrizoate sodium (From GASTROGRAFIN) Allergy (Mild, Verified 05/18/25 08:18) ITCHY THROAT, RASH diclofenac (From VOLTAREN) Allergy (Mild, Verified 05/18/25 08:18) ITCHY THROAT, RASH erythromycin base (ERYTHROMYCIN BASE) Allergy (Mild, Verified 05/18/25 08:18) ITCHY THROAT, RASH gentamicin (GENTAMICIN) Allergy (Mild, Verified 05/18/25 08:18) ITCHY THROAT, RASH Iodinated Contrast Media (IVP DYE) Allergy (Mild, Verified 05/18/25 08:18) ITCHY THROAT, RASH levofloxacin (From LEVAQUIN) Allergy (Mild, Verified 05/18/25 08:18) ITCHY THROAT, RASH metronidazole (From FLAGYL) Allergy (Mild, Verified 05/18/25 08:18) ITCHY THROAT, RASH moxifloxacin (From AVELOX) Allergy (Mild, Verified 05/18/25 08:18) ITCHY THROAT, RASH Penicillins (PENICILLINS) Allergy (Mild, Verified 05/18/25 08:18) ITCHY THROAT, RASH shrimp (SHRIMP) Allergy (Mild, Verified 05/18/25 08:18) ITCHY THROAT, RASH Sulfa (Sulfonamide Antibiotics) (SULFA (SULFONAMIDE ANTIBIOTICS)) Allergy (Mild, Verified 05/18/25 08:18) ITCHY THROAT, RASH vancomycin (VANCOMYCIN) Allergy (Mild, Verified 05/18/25 08:18) ITCHY THROAT, RASH clindamycin Adverse Reaction (Intermediate, Verified 05/18/25 08:18) Unknown spironolactone Adverse Reaction (Intermediate, Verified 05/18/25 08:18) diarrhea HPI Comments Details: The patient is a 80 y/o woman with a complicated history which includes: COPD, KANDY, pulmonary HTN, history pulmonary emboli on chronic anticoagulation, lung CA Stage IIIA s/o neoadjuvant chemoradiation and Left upper lobe lobectomy. She did have a CT scan today that I personally reviewed. Has not been personally read by the radiologist. Based on my reading she has some pulmonary nodules some that are new 4 mm in the right major fissure area. Other nodules are stable. Other post operative and pulmonary fibrotic changes stable. The patient should get a CT scan in 6 months. Also to note, she did not tolerate the Incruse nor budesonide. Will consider Daliresp. She was admitted to [facility] with diverticulitis. She was placed on IV antibiotics but she left against medical advice because she did not like the antibiotic options. In the meantime she was having some issues with coughing up some blood. She is also concerned because on her visit to [facility] she did have a CT scan of the chest and she was told that she had significant scarring of her lungs in addition to lung volume loss. I have not looked at the CT scan back in reassured her that she has had this radiation fibrosis for long time and volume loss due to the scarring was present before. We did review her perfusion scan demonstrating no defects to suggest any blood clots. Interestingly in the quantitative study the patient did have 81% of the blood flow going to her right lung and 18% going to the left. This is likely due to her previous surgery and also radiation changes. 03/21/2024 the patient is here for pulmonary follow-up visit. She has multiple complaints. She is entirely seems any physicians. She is still dealing with the wound getting plenty of wound care 4. Still getting debrided. In addition to that she has had a productive cough. The phlegm is now clear but thick difficult to expectorate. Sometimes feel like it is dripping for nasal passages down like a postnasal drip. The patient is currently on cefpodoxime. She is finishing a course. We did try to get sputum in the office but she was not able to do so. I did give her a cup in order for her to be doing her own time. We will be able to look for both Gram stain culture and also AFB. The patient also had a chest x-ray which I personally reviewed and also compared to her previous x-rays. It appears that she has worsening left-sided pleural effusion. Hard to know that is long as very affected on that side there is any active disease otherwise. She has not had a CT scan since October. In view of the worsening chest x-ray in the ongoing symptoms will go ahead and request a CT scan time. The patient also could try some Mucomyst. I will send some to the pharmacy to see if we can get it. She understands that is hard to get. When she gets she can use it twice a day for CPT to see if this helps clear the secretions that gets that within her airways. In addition to that the patient has been using the BiPAP. The BiPAP therapy has been affecting beneficial. She does use it for more than 4 hours a night. However, she does have a component of hypercarbia and she would do better with the noninvasive ventilator. Currently she is set up for sleep study at [facility] coming up. Hopefully they can do a split study and try titrate her figure out what her best form of therapy it is. At some point though if she continues on the BiPAP will need to replace it because his older than 5 years. 05/09/2024 the patient is here for a pulmonary follow-up visit. Overall she is doing well from a respiratory status. She recently did have a CT scan of the chest that at [facility]. I did personally reviewed. Appears to be stable. She does have the chronic effusion in the parenchymal disease. This is all stable. She does have a small compression fracture though. Has significant osteopenia. She did have blood work with her forge operator recently. Her antiphospholipid antibodies and anticardiolipin antibodies continue antiphospholipid antibody elevated. Her homocystine that was also elevated. She is going to start folic acid. She is concerned because her D-dimer was significantly elevated. Although she did have trauma to the legs. She had lower extremity Dopplers which were negative for any clots which is reassuring. Previous he Q scans have been reassuring. Will go ahead and repeat her blood test to see make sure that the D-dimer is coming down. If the D-dimer continues to be elevated then will do additional testing for potential occult clots. She continues on the Coumadin with a goal level 1.5-2. I do believe that she should stay on it based on the fact that she has significant symptoms and coming off the medicine may result in more security of the results specially since the Coumadin has been working for her chronic thromboembolic disease. From the wound standpoint the patient is doing better from the wound healing on her right lower extremity although she recently had another the trauma to the left. She is also dealing with a boil or a growth on the perineal area. She is going to be seeing child and youth program assistant for that. 08/08/2024 the patient is here for a pulmonary follow-up visit. Overall she is doing okay. She does have issues with her balance and also issues with dysuria. The patient has been also having issues with her oxygen that was at nighttime. She has been noticing worsening hypoxia. She has been using her BiPAP 16/10. She does use it with her oxygen. The patient did have a download recently and her AHI is up to 10 cm. She also had a blood gas demonstrating elevations in her CO2. Therefore, will go ahead and increase her BiPAP settings from 16-10 to 18/12. This BiPAP is about 6 years old now. The patient likely needs a replacement. Will go ahead and refer her to sleep in [place] in order for her to undergo a split study in order to get her a new PAP therapy. During the titration study component will be helpful to see if she is better off with AVAPS versus BiPAP. We did try her underlying AVAP but she could not tolerate it. She followed she did not have enough teaching. Therefore, will go ahead and increase the pressures of her BiPAP monitor her AHI and recheck a venous gas while we wait for her to see a certified sleep specialist in [place]. In the meantime she continues with her diuresis. Will go ahead and check a blood work. The patient also had a CT scan of the chest back in 03/29/2024 demonstrating no acute disease just a chronic changes. Will plan to talk about any additional imaging during her next visit. She will continue with current respiratory regimen for now. 09/11/2024 the patient is here for hospital follow-up visit. Apparently she was in the ER with worsening shortness of breath and cough. She was at [facility]. There she did have blood work. Her brain atretic peptide was significantly elevated at 100. She also did have a CT scan of the chest which I personally reviewed. She does have just chronic findings which include her radiation fibrosis decreased lung volume on the left along with the small pleural effusion on the left with the heart shifted Leftward as well volume loss. She was diagnosed with bronchitis and the patient was discharged. We did review further blood work and her sedimentation rate has been climbing slowly now at 51. in addition to that she does have a history of positive CLARA and now she is complaining of some pleuritic chest discomfort bringing up the question of underlying connective tissue disease resulting in some pleuritis. In addition to that she has been feeling episodes of increased heart rate and shortness of breath. I suspect that is likely a pulmonary vascular component. Her last echocardiogram demonstrating moderate degree of pulmonary hypertension. Unfortunately, she did not tolerate pulmonary vasodilators because if the significant amount of increase in the volume to the left ventricle then ultimately resulting in congestive heart failure. Therefore hold off on that. The patient is also anxious. She is not sleeping well. She feels that she is going to fall asleep and not wake up. She is willing to try small dose of Ambien. This will help her fall asleep and I explained to her that is not going to suppress her respiratory drive. We also did look at her blood gas that she had initially when she showed up and she had a severe case of respiratory alkalosis and she was able to breathe down her pCO2 down to 24 which is pretty significant. In addition to that she is willing to try small dose of Plaquenil to treat her for underlying pleuritis and pain and see if this can provide some relief as we repeat her blood work. She will be following up with Hematology. 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 I did print out the blood work so she can talk to her forge operator in the meantime will go ahead and repeat her blood work as well. She continues to be on high dose of diuretics. Volume status seems to be better at this time. She continues use the oxygen with good effect. Sometimes her oxygen drops because of her cardiopulmonary disease. She does not have much pulmonary reserve. In with the pulmonary hypertension along with diastolic dysfunction this quit quickly result in hypoxia. She can take breaks though when she is sitting as lungs are oxygens above 90%. 11/04/2024 the patient is here for a pulmonary follow-up visit. Since we last spoke she started developing abdominal pain. She did go to the ER where she was diagnosed with diverticulitis based on a CAT scan showing fat stranding close to the areas of diverticulosis in the left descending colon. The patient was not given any antibiotics because of all her allergies. She then followed up with the GI doctor called and it was recommended that she go back to the ER. She has not started any therapy for this. She has been feeling a little dehydrated from the lack of p.o. intake as she is doing significant amount of bowel rest. She has tolerated cephalosporins in the past. I will go ahead and send her Vantin to the pharmacy that she can use. She has also tolerated ceftriaxone in the hospital that has also been helpful for her. She does not tolerate clindamycin anymore and unfortunately she does not call tolerate the Flagyl either so we can not provide her with any anaerobic coverage. Still though Vantin has a broad spectrum coverage and should help. If her symptoms worsen though she should definitely go to the ER specially she is getting dehydrated or for abdominal comfort is worse or if she started developing fevers or chills or any other concerning symptoms. As far as her sleep apnea the patient did undergo a sleep study. This was done in [place]. It was recommended that based on her sleep apnea noted on his study that she start CPAP therapy. I did not see that they checked the end-tidal CO2 but at this point I think is reasonable for her to start CPAP on 2 L of oxygen and if she does not tolerate that if she fails CPAP we can quickly switch over to BiPAP anyway. Will go ahead and request a replacement APAP through [employer], [place]. And therefore she can get her supplies as well. If she has a machine prior to her next appointment she can always bring it in so we can review with her. From a respiratory status she is okay she is using her oxygen with good effect. The patient continues on the Lasix as well she is taking 160 mg daily total. Because of her significant weight loss decreased p.o. intake I did have her only take half the dose for couple days in order for her to read a Barkley very and then go back to the full dose when she is able to take by mouth. 11/21/2024 the patient is here for pulmonary follow-up visit. The patient overall has been feeling better from the diverticulitis. She did complete the Vantin. She still has some on hold in case her symptoms worsened again. She will be following up with Dr. Fang soon. In the meantime respiratory status is stable. She does have bowel some dyspnea and hypoxia. She is already on high dose of diuretics. She is going to be following up a heart failure specialist. I do believe that is Jardiance may be a potential option for her. In the meantime she continues use her respiratory therapy with good effect. She continues use her oxygen did effect. She also continues use the BiPAP every night. BiPAP therapy has been affecting beneficial. She does use it for more than 4 hours a night. She is complaining of a dry mouth. I did increase the humidity a little bit. She can always increase in more from home. In the meantime her BiPAP is very old. Will request a replacement BiPAP at this time with a local [employer] [facility]. Otherwise patient follow-up in 2-3 months. If she has any issues prior to this she will call for an earlier assessment. 12/26/2024 the patient is here for sick visit. The patient had a an event at home where she was exposed to a smoke due to vinegar and also baking soda as she was trying to clean a pot. She did develop some difficulty breathing and a significant cough. She did call the office and we had increased her prednisone to 20 mg. Seems that she is getting better although she has a still barky cough. Still feels like she has a very sore trachea. Likely from respiratory dysfunction syndrome from the initial exposure to the fumes and smoke. She is having hard time sleeping having some chest discomfort. Will try some cough medication with codeine to try to alleviate her symptoms. She is going to wean down to the baseline prednisone of 5 mg. In the meantime she continues have daytime drowsiness. She has been using just oxygen though. She has had 2 sleep studies demonstrating no evidence of any significant sleep apnea. Therefore, will hold off on CPAP therapy at this time. Will go ahead and check a blood gas to see if her CO2 is elevated. If her CO2 is elevated then we have to consider treatment for chronic hypercarbic respiratory failure. The patient also has been complaining of dyspnea on exertion. Moderate severity. Will go ahead and start her on PFTs and pulmonary rehabilitation. 01/02/2025 the patient is here for a pulmonary follow-up visit. The patient has been using the BiPAP. The BiPAP therapy appears to be affecting beneficial by though she is swallowing a lot of air and getting some bloating. I did decrease the pressures were 18/12 to 16/8. She also had a blood gas demonstrating a pCO2 of 59 mmHg. The patient therefore benefits from the BiPAP. The machine now is older and needs to be replaced. We will go ahead and request an overnight oximetry to see if we can have her qualify for BiPAP again with [facility]. Otherwise we may have to stay with [facility] about getting a replacement BiPAP through them. The patient did have pulmonary function studies and I did personally reviewed him. Appears to have interval worsening overall with now moderate obstruction consistent with moderate COPD and also moderate restrictive ventilatory defect which is also worse. In addition to the severe diffusion impairment likely secondary to the above findings and her underlying pulmonary vascular disease. This all explained the need for unconfirmed Ingrid for the oxygen supplementation. She continues to use a nebulizer. Her machine is no longer working correctly therefore we will request a replacement. And I do feel strongly about her performing pulmonary rehabilitation. In the meantime she did have a twisting of her ankle and she is having some right ankle pain and bruising so therefore will have her get an x-ray of that before she starts rehab. 02/18/2025 the patient is here for a pulmonary follow-up visit. She is still struggling with her respiratory symptoms. Sometimes developing chest tightness and not sure if his cardiac or pulmonary. The last time she was in the hospital was back in early February. She had an x-ray which was without any acute issues just a chronic left-sided pleural effusion. Her blood work was okay except for slightly elevated troponins which have been elevated since October. The patient has been on the diuretics. She seems to be tolerating them well in her volume status is overall better. Recently though she was having issues with her left eye having some eye pain and blurriness and she went to see the test facility engineer and she was diagnosed with optic neuritis. She does have a history of connective tissue conditions and question of multiple sclerosis when she was very young. Therefore, is not clear at this point but she did have increased dose of prednisone given. And she is going to taper it down. I did encourage her to make sure she follows up with ophthalmology to make sure that the neuritis subsides. In the meantime the patient is been using the BiPAP. Unfortunately though we did an overnight oximetry which still showing significant hypoxia and she will need to have increased oxygen needs with the BiPAP and also she had a blood gas demonstrating an elevated pCO2 of 61 mmHg suggesting that she is failing BiPAP. The patient needs to go on a noninvasive ventilator. She does not have obstructive sleep apnea. The patient does have chronic hypoxic and hypercarbic respiratory failure due to her COPD. And at this point she carries a poor prognosis and high risk so hospitalizations. Therefore, she needs to be on a noninvasive ventilator to improve her gas exchange decrease her hospitalizations and improve her prognosis. 03/28/2025 the patient is here for sick visit. She has been developing worsening cough chest tightness pleuritic chest pain primarily on the left side. Moderate severity. She also complains of a sore throat. The cough itself is been croupy in nature. Difficult to expectorate. The patient did call we start her on doxycycline in addition to increase her prednisone baseline. She did have a chest x-ray in addition to a sinus x-ray. Sinuses were clear and the chest x-ray demonstrates a persistent left-sided pleural effusion which appears to be just a slight increased. The patient also had blood work. She does have an elevated white count with a decreasing the lymphocyte count suggesting the possibility of a viral syndrome. We did test her for flu RSV and COVID in the there were all negative. The patient does have some wheezing on the left lung which is asymmetrical. Likely has a component of tracheobronchitis with a croupy cough. The patient will continue on the doxycycline. In the meantime will go ahead and increase the prednisone to 20 mg and slowly taper it down. The patient also will provide cough syrup. Will plan to do a CAT scan once she is better to follow-up with her nodular densities and history of cancer in the abnormal chest x-ray. 04/10/2025 the patient is here for a pulmonary follow-up visit. Overall she is feeling little better from the respiratory status. Her chest tightness has subsided and the cough has a sinus. She is tapering down on the prednisone. The patient continues use her respiratory therapy with partial improvement. She is also struggling with her sleep. The patient does have significant history of sleep apnea and also chronic hypercarbic respiratory failure. Unfortunately she had a sleep study recently but it did not measure her end-tidal CO2 is therefore it is suboptimal and nondiagnostic. Will request a repeat sleep study at [facility] in order to follow her end-tidal CO2 and assess her for iVAPS were AVAP therapy. She has had 2 episodes of chest heaviness along with dizziness with a near syncopal type of reaction. The symptoms last sec but are pretty significant. She did try to get a Holter monitoring the past but she had an allergic reaction to the tape. She will follow-up with Cardiology regarding any other alternative testing that she can have done to assess for cardiac arrhythmias. The patient follow-up in 6-8 weeks. 05/08/2025 the patient is here for hospital follow-up visit. She was admitted to the hospital with congestive heart failure. During the hospital stay she did have a chest x-ray demonstrating slightly worsening left-sided pleural effusion which is very chronic issue for her and likely worsen with the increased volume overload status. The patient did have an echocardiogram demonstrating diastolic dysfunction. In addition to that the mitral clip seems to be working just fine. Her pulmonary pressures were stated to be normal. The patient did get diuresed. She was started recently on Jardiance but she has not picked up the prescription. She will be starting it tomorrow. I do believe this would be a very good option for her. As far as her respiratory status seems to be stable. She seems to be using the oxygen with good effect. She understands that when she goes into heart failure her oxygen levels will decrease specially because she has no pulmonary reserve. In addition to that she continues have daytime drowsiness. She did undergo a sleep study at [facility] although she has a hard time sleeping. Her report she will be coming up in the next week. Will have her come back in 1-2 weeks and we can review those results. In the meantime she is going to continue with the current respiratory therapy. Continue with the oxygen therapy and using her BiPAP at nighttime. 05/16/2025 the patient is here for sick visit. She is started developing chest tightness shortness of breath tachycardia and hypoxia. She was at the supermarket and her oxygen dropped about 86%. She was very nervous and anxious about it. Ultimately she went home and she had her friend listen to her lungs and she was wheezy. The patient received albuterol treatment and did improve her symptoms. She does have her oxygen that she uses regularly. We did perform a 6 minute walk test here and she actually did previously maintaining a pulse ox between 94-90% with activity. The patient does have some wheezing rhonchi on exam. As far as exposure, there is a child that she indirectly had contact with RSV. We are going to test her today but we do not have 2 kids. If she does develop any worsening symptoms we can always have her get swab or she can go to the ER. For now though she does have wheezing and tightness so she is going to start the albuterol therapy follow up with the incentive spirometer follow up with the Acapella valve twice a day. In addition to that she will increase her prednisone from 2.5 mg to 15 mg with a taper start Vantin. She does take Coumadin so she needs to make sure she let the Coumadin clinic note so they can follow her levels closely. Her last INR was 1.5. The patient feels very tired and weak. We did talk about considering stimulant therapy but since she is having a likely ongoing respiratory illness will hold off as she may be just having symptoms of fatigue from a an ongoing illness. She did have a sleep study done at [facility]. I have not gotten the results. Will send review them. In addition to that she is scheduled to have a repeat CAT scan coming up. [facility] Medical History (Updated 05/18/25 @ 14:49 by Louie Ly MD) Anti-phospholipid antibody syndrome Chest pain Chest pain Ankle pain Chronic hypercapnic respiratory failure KANDY treated with BiPAP COPD (chronic obstructive pulmonary disease) Open wound Warfarin anticoagulation Complex sleep apnea syndrome Leg pain Anemia Tachycardia DVT (deep venous thrombosis) Compression fracture of body of thoracic vertebra ASD (atrial septal defect) Pleuritic chest pain History of COVID-19 Chronic anticoagulation Hypothyroidism GERD (gastroesophageal reflux disease) Hyperlipidemia Hypertension Factor 5 Leiden mutation, heterozygous History of non-ST elevation myocardial infarction (NSTEMI) Hypoxia Anxiety PTSD (post-traumatic stress disorder) Hemoptysis Dyspnea Tracheobronchitis CLARA positive Diverticulitis Allergic bronchitis (HFpEF) heart failure with preserved ejection fraction Subarachnoid bleed Insomnia Hypogammaglobulinemia Chronic respiratory failure Arterial insufficiency of lower extremity Complex regional pain syndrome i of right lower limb Post herpetic neuralgia Pulmonary hypertension Pericardial effusion Pulmonary emboli Pleural effusion Radiation fibrosis of lung Pneumonitis Pulmonary nodules Lung cancer Surgical History History of colonoscopy History of lung surgery History of tonsillectomy History of hysterectomy S/P mitral valve clip implantation History of cardiac cath Family History Sister No problems noted. Mother Cardiovascular disease Daughter Tachycardia Other KANDY (obstructive sleep apnea) Social History Household Members: None Housing: House Do you presently have visiting nurse or other home services: No Alcohol intake: never Comment: stand by assist with ambulation Patient Tobacco Use Status: Never used Tobacco e-Cigarette/Vaping Use: Never Used Second Hand Smoke Exposure: No Advance Directives Date on File: 06/15/22 service: No Current occupational status: retired Review of Systems Const Denies chills, Reports fatigue, Denies fever(s), Denies weight gain and Denies weight loss Eyes Denies change in vision ENT Denies dizziness Card Reports chest pain, Reports leg edema, Denies lightheadedness, Reports palpitations, Reports dyspnea on exertion, Denies orthopnea and Denies other Resp Reports cough and Reports dyspnea on exertion GI Denies hematochezia and Denies change in stool character Musc Denies abnormal gait, Denies muscle weakness, Denies numbness, Denies radiating pain into limb and Denies tingling Skin/Breast Reports change in pigmentation, Reports skin swelling and Reports unusual bruising Neuro Denies abnormal gait, Denies dizziness, Denies numbness and Denies tingling Psych Reports depression Endo Reports fatigue and Reports palpitations Physical Exam Vital Signs: Last Vital Signs Pulse 91 05/16/25 15:24 BP 108/54 L 11/07/25 15:24 Pulse Ox 94 05/16/25 15:24 Oxygen Delivery Method Nasal Cannula 05/16/25 15:24 Oxygen Flow Rate 2 05/16/25 15:24 BMI result Body Mass Index 23.2 Assessment & Plan Assessment & Plan (1) COPD (chronic obstructive pulmonary disease): Code(s): J44.9 - Chronic obstructive pulmonary disease, unspecified Category: Medical Qualifiers: COPD type: chronic bronchitis Chronic bronchitis type: simple Qualified Code(s): J41.0 - Simple chronic bronchitis (2) Cough: Code(s): R05.9 - Cough, unspecified Category: Medical Qualifiers: Cough type: subacute Qualified Code(s): R05.2 - Subacute cough (3) Chronic hypercapnic respiratory failure: Code(s): J96.12 - Chronic respiratory failure with hypercapnia Category: Medical (4) Pulmonary hypertension: Comment: severe based on RHC, moderate based on recent echo Code(s): I27.20 - Pulmonary hypertension, unspecified Category: Medical (5) Pulmonary nodules: Code(s): R91.8 - Other nonspecific abnormal finding of lung field Category: Medical (6) Chronic respiratory failure: Code(s): J96.10 - Chronic respiratory failure, unspecified whether with hypoxia or hypercapnia Category: Medical Qualifiers: Respiratory failure complication: hypoxia and hypercapnia Qualified Code(s): J96.11 - Chronic respiratory failure with hypoxia; J96.12 - Chronic respiratory failure with hypercapnia (7) Radiation fibrosis of lung: Code(s): J70.1 - Chronic and other pulmonary manifestations due to radiation Category: Medical (8) (HFpEF) heart failure with preserved ejection fraction: Code(s): I50.30 - Unspecified diastolic (congestive) heart failure Category: Medical Qualifiers: Heart failure chronicity: chronic Qualified Code(s): I50.32 - Chronic diastolic (congestive) heart failure (9) Lung cancer: Code(s): C34.90 - Malignant neoplasm of unspecified part of unspecified bronchus or lung Category: Medical Qualifiers: Laterality: left Lung location: upper lobe of lung Qualified Code(s): C34.12 - Malignant neoplasm of upper lobe, left bronchus or lung (10) Pleural effusion: Code(s): J90 - Pleural effusion, not elsewhere classified Category: Medical (11) KANDY (obstructive sleep apnea): Code(s): G47.33 - Obstructive sleep apnea (adult) (pediatric) Category: Medical Plan prednisone taper 15mg-->2.5mg QOD start vantin, monitor INR cough medicine Ambien for sleep continue Advair ASHA as needed continue ASHA (xopenex) as needed CPT with acapella valve fluticasone Oxygen 2L/pulse with activity and sleep. POC Damián G5 in lab PSG at [facility], pending results duiresis as tolerated, started Jardience declined Ohtuvayre F/U 1-2 weeks Medications: New cefpodoxime must administer with a meal/food 100 mg PO BID 20 tabs 0RF 10 days prednisone orally daily; Take 3 tabs daily x 3 days, then 2 tabs daily x 3 days, then 1 tab daily x 3 days 18 tabs 0RF 9 days Coding Level of Care Code Tele Est Pt Level 5 (84328) Complex EM visit Add On G2211 Diagnoses Simple chronic bronchitis J41.0 COPD type: chronic bronchitis Chronic bronchitis type: simple Subacute cough R05.2 Cough type: subacute Chronic hypercapnic respiratory failure J96.12 Pulmonary hypertension I27.20 Pulmonary nodules R91.8 Chronic respiratory failure with hypoxia and hypercapnia J96.11; J96.12 Respiratory failure complication: hypoxia and hypercapnia Radiation fibrosis of lung J70.1 Chronic heart failure with preserved ejection fraction I50.32 Heart failure chronicity: chronic Malignant neoplasm of upper lobe of left lung C34.12 Laterality: left Lung location: upper lobe of lung Pleural effusion J90 KANDY (obstructive sleep apnea) G47.33 Time Spent (min) 45
[2025-05-16 15:24] VITALS: BP 108/54; PULSE 91; O2SAT 94; BMI 23.2
--- OUTSIDE RECORDS SUMMARY | 2025-05-16 16:25 | XMS_ITS | Encounter Summary ---
Author Organization [facility] and [facility] Address [address] [place] [address] Care Team Providers Care Service Attendant Cafeteria Name Role Phone Caitlyn Bowie MD Primary Care Provider +1- [phone] Encounter Details Date Type Department Care Team (Late st Contact Info) Description 04/18/2025 Telephone [facility] [address] [place] [address] [id number] Ronald Mills MD [address] [address] Social History Tobacco Use Types [...] as of this encounter Care Teams Service Attendant Cafeteria Relationship Specialty Start Date End Date Caitlyn Bowie MD [address] [address] PCP - General Internal Medicine 05/06/21 documented as of this encounter
--- OUTSIDE RECORDS SUMMARY | 2025-05-16 16:25 | XMS_ITS | Encounter Summary ---
Author Organization [facility] and [facility] Address [address] [place] [address] Care Team Providers Care Die Out Worker Name Role Phone Caitlyn Bowie MD Primary Care Provider +1- [phone] Encounter Details Date Type Department Care Team ([facility] st Contact Info) Description 02/02/2017 Scanned Document [facility] Health Information Management [address] [place] [address] External, Provider Social History Tobacco Use Types [...] as of this encounter Care Teams Die Out Worker Relationship Specialty Start Date End Date Caitlyn Bowie MD [address] [address] PCP - General Internal Medicine 05/06/21 Henry Kelly MD Pulmonary Department 175 [facility], [address] [place] [address] Physician Pulmonary Disease 09/06/17 06/22/20 documented as of this encounter
--- OUTSIDE RECORDS SUMMARY | 2025-05-16 16:25 | XMS_ITS | Encounter Summary ---
Author Organization [facility] Address [address] [place] [address] Care Team Providers Care Team Leader Surgery Name Role Phone Caitlyn Bowie MD Primary Care Provider +1- [phone] Encounter Details Date Type Department Care Team (Late st Contact Info) Description 02/20/2017 Scanned Document [facility] Health Information Management [address] [place] [address] External, Provider Social History Tobacco Use Types [...] MD 3400 [facility] 1 [place] [address] PCP - General Internal Medicine 05/06/21 Henry Kelly MD Pulmonary Department 175 [facility], [address] [place] [address] Physician Pulmonary Disease 09/06/17 06/22/20 documented as of this encounter
--- OUTSIDE RECORDS SUMMARY | 2025-05-16 16:25 | XMS_ITS | Encounter Summary ---
Author Organization [facility] and [facility] Address [address] [place] [address] Care Team Providers Care Wheel Inspector Name Role Phone Caitlyn Bowie MD Primary Care Provider +1- [phone] Encounter Details Date Type Department Care Team ([facility] st Contact Info) Description 07/08/2020 Scanned Document [facility] Health Information Management [address] [place] [address] External, Provider Social History Tobacco Use Types [...] as of this encounter Care Teams Wheel Inspector Relationship Specialty Start Date End Date Caitlyn Bowie MD [address] [address] PCP - General Internal Medicine 05/06/21 documented as of this encounter
--- OUTSIDE RECORDS SUMMARY | 2025-05-16 16:25 | XMS_ITS | Encounter Summary ---
Author Organization [facility] and [facility] Address [address] [place] [address] Care Team Providers Care Insurance Policy Clerk Name Role Phone Caitlyn Bowie MD Primary Care Provider +1- [phone] Encounter Details Date Type Department Care Team (Late st Contact Info) Description 05/14/2020 Documentation [facility] [address] [address] Taya Nuno RN Social History Tobacco Use [...] as of this encounter Care Teams Insurance Policy Clerk Relationship Specialty Start Date End Date Caitlyn Bowie MD [address] [address] PCP - General Internal Medicine 05/06/21 Henry Kelly MD Pulmonary Department [address] [place] [address], [address] [place] [address] Physician Pulmonary Disease 09/06/17 06/22/20 documented as of this encounter
--- OUTSIDE RECORDS SUMMARY | 2025-05-16 16:25 | XMS_ITS | Encounter Summary ---
Author Organization [facility] and [facility] Address [address] [place] [address] Care Team Providers Care Soil Surveyor Name Role Phone Caitlyn Bowie MD Primary Care Provider +1- [phone] Encounter Details Date Type Department Care Team (Late st Contact Info) Description 02/20/2017 Scanned Document [facility] Health Information Management [address] [place] [address] External, Provider Social History Tobacco Use Types [...] Date End Date Caitlyn Bowie MD 3400 [facility] [address] [place] [address] PCP - General Internal Medicine 05/06/21 Henry Kelly MD Pulmonary Department 175 [facility], [address] [place] [address] Physician Pulmonary Disease 09/06/17 06/22/20 documented as of this encounter
--- OUTSIDE RECORDS SUMMARY | 2025-05-16 16:25 | XMS_ITS | Encounter Summary ---
Author Organization [facility] and [facility] Address [address] [place] [address] Care Team Providers Care Mantel Craftsman Name Role Phone Caitlyn Bowie MD Primary Care Provider +1- [phone] Encounter Details Date Type Department Care Team (Late st Contact Info) Description 05/19/2020 Scanned Document [facility] at [address] [address] External, Provider Social History Tobacco Use Types [...] documented as of this encounter Care Teams Mantel Craftsman Relationship Specialty Start Date End Date Caitlyn Bowie MD 3400 [facility] 1 [place] [address] PCP - General Internal Medicine 05/06/21 Henry Kelly MD Pulmonary Department 175 [facility], [address] [place] [address] Physician Pulmonary Disease 09/06/17 06/22/20 documented as of this encounter
--- OUTSIDE RECORDS SUMMARY | 2025-05-16 16:26 | XMS_ITS | Encounter Summary ---
Author Organization [facility] and [facility] Address [address] [place] [address] Care Team Providers Care Medical Representative Name Role Phone Caitlyn Bowie MD Primary Care Provider +1- [phone] Encounter Details Date Type Department Care Team (Late st Contact Info) Description 12/16/2016 Scanned Document [facility] Health Information Management [address] [place] [address] External, Provider Social History Tobacco Use Types [...] as of this encounter Care Teams Medical Representative Relationship Specialty Start Date End Date Caitlyn Bowie MD 3400 [facility] 1 [place] [address] PCP - General Internal Medicine 05/06/21 Henry Kelly MD Pulmonary Department 175 [facility], [address] [place] [address] Physician Pulmonary Disease 09/06/17 06/22/20 documented as of this encounter
--- OUTSIDE RECORDS SUMMARY | 2025-05-16 16:26 | XMS_ITS | Clinical Summary ---
Author Organization [facility] Address [address] [place] [address] Care Team Providers Care Named Account Executive Name Role Phone Brennan Burnett MD Primary Care Provider [phone] Allergies Active Allergy Reactions Criticality Noted Date [...] age to complete this topic Care Teams Named Account Executive Relationship Specialty Start Date End Date Brennan Burnett MD [address] [place] [address] PCP - General Internal Medicine 07/06/20
--- OUTSIDE RECORDS SUMMARY | 2025-05-16 16:26 | XMS_ITS | Encounter Summary ---
Author Organization [facility] and [facility] Address [address] [place] [address] Care Team Providers Care Cartridge Filler Name Role Phone Caitlyn Bowie MD Primary Care Provider +1- [phone] Encounter Details Date Type Department Care Team ([facility] st Contact Info) Description 09/16/2020 Scanned Document [facility] Health Information Management [address] [place] [address] External, Provider Social History Tobacco Use Types [...] documented as of this encounter Care Teams Cartridge Filler Relationship Specialty Start Date End Date Caitlyn Bowie MD [address] [address] PCP - General Internal Medicine 05/06/21 documented as of this encounter
--- OUTSIDE RECORDS SUMMARY | 2025-05-16 16:26 | XMS_ITS | Encounter Summary ---
Author Organization [facility] Address [address] [place] [address] Care Team Providers Care Web Graphic Designer Name Role Phone Caitlyn Bowie MD Primary Care Provider +1- [phone] Encounter Details Date Type Department Care Team ([facility] st Contact Info) Description 09/17/2020 Scanned Document [facility] Health Information Management [address] [place] [address] External, Provider Social History Tobacco Use Types [...] as of this encounter Care Teams Web Graphic Designer Relationship Specialty Start Date End Date Caitlyn Bowie MD [facility] [address] [address] PCP - General Internal Medicine 05/06/21 documented as of this encounter
--- OUTSIDE RECORDS SUMMARY | 2025-05-16 16:26 | XMS_ITS | Encounter Summary ---
Author Organization [facility] and [facility] Address [address] [place] [address] Care Team Providers Care Revenue Settlements Administrator Name Role Phone Caitlyn Bowie MD Primary Care Provider +1- [phone] Encounter Details Date Type Department Care Team (Late st Contact Info) Description 12/16/2016 Scanned Document [facility] Health Information Management [address] [place] [address] External, Provider Social History Tobacco Use Types [...] 3400 [facility] [address] 1 [place] [address] PCP - General Internal Medicine 05/06/21 Henry Kelly MD Pulmonary Department 175 [facility], [address] [place] [address] Physician Pulmonary Disease 09/06/17 06/22/20 documented as of this encounter
--- OUTSIDE RECORDS SUMMARY | 2025-05-16 16:26 | XMS_ITS | Encounter Summary ---
Author Organization [facility] Address [address] [place] [address] Care Team Providers Care Safety Pin Assembling Machine Operator Name Role Phone Caitlyn Bowie MD Primary Care Provider +1- [phone] Encounter Details Date Type Department Care Team (Late st Contact Info) Description 08/29/2019 Scanned Document [facility] at [address] [address] External, Provider Social History Tobacco Use Types [...] as of this encounter Care Teams Safety Pin Assembling Machine Operator Relationship Specialty Start Date End Date Caitlyn Bowie MD 3400 [facility] 1 [place] [address] PCP - General Internal Medicine 05/06/21 Henry Kelly MD Pulmonary Department 175 [facility], [address] [place] [address] Physician Pulmonary Disease 09/06/17 06/22/20 documented as of this encounter
--- OUTSIDE RECORDS SUMMARY | 2025-05-16 16:26 | XMS_ITS | Encounter Summary ---
Author Organization [facility] and [facility] Address [address] [place] [address] Care Team Providers Care Medical Fee Clerk Name Role Phone Caitlyn Bowie MD Primary Care Provider +1- [phone] Encounter Details Date Type Department Care Team (Late st Contact Info) Description 12/16/2016 Scanned Document [facility] Health Information Management [address] [place] [address] External, Provider Social History Tobacco Use Types [...] as of this encounter Care Teams Medical Fee Clerk Relationship Specialty Start Date End Date Caitlyn Bowie MD 3400 [facility] 1 [place] [address] PCP - General Internal Medicine 05/06/21 Henry Kelly MD Pulmonary Department [address] [place] [address], [address] [place] [address] Physician Pulmonary Disease 09/06/17 06/22/20 documented as of this encounter
--- OUTSIDE RECORDS SUMMARY | 2025-05-16 16:26 | XMS_ITS | Encounter Summary ---
Author Organization [facility] and [facility] Address [address] [place] [address] Care Team Providers Care Bridal Sales Consultant Name Role Phone Caitlyn Bowie MD Primary Care Provider +1- [phone] Encounter Details Date Type Department Care Team (Late st Contact Info) Description 09/15/2020 Scanned Document INTERFACE DEFAULT [address] [place] [address] System, Provider Not In Social History Tobacco [...] End Date Caitlyn Bowie MD [address] [address] PCP - General Internal Medicine 05/06/21 documented as of this encounter
--- OUTSIDE RECORDS SUMMARY | 2025-05-16 16:26 | XMS_ITS | Encounter Summary ---
Author Organization [facility] and [facility] Address [address] [place] [address] Care Team Providers Care Advertising Statistical Clerk Name Role Phone Caitlyn Bowie MD Primary Care Provider +1- [phone] Encounter Details Date Type Department Care Team (Late st Contact Info) Description 01/22/2020 Scanned Document [facility] [address] [place] [address] Kerwin Menjivar MD 260 [facility] 3 [place] [address] Social History Tobacco Use Types [...] as of this encounter Care Teams Advertising Statistical Clerk Relationship Specialty Start Date End Date Caitlyn Bowie MD 3400 [facility] 1 [place] [address] PCP - General Internal Medicine 05/06/21 Henry Kelly MD Pulmonary Department 175 [facility], [address] [place] [address] Physician Pulmonary Disease 09/06/17 06/22/20 documented as of this encounter
--- OUTSIDE RECORDS SUMMARY | 2025-05-16 16:26 | XMS_ITS | Encounter Summary ---
Author Organization [facility] and [facility] Address [address] [place] [address] Care Team Providers Care Leak Detection Engineer Name Role Phone Caitlyn Bowie MD Primary Care Provider +1- [phone] Encounter Details Date Type Department Care Team ([facility] st Contact Info) Description 11/29/2019 Scanned Document [facility] Health Information Management [address] [place] [address] External, Provider Social History Tobacco Use Types [...] documented as of this encounter Care Teams Leak Detection Engineer Relationship Specialty Start Date End Date Caitlyn Bowie MD [address] [address] PCP - General Internal Medicine 05/06/21 Henry Kelly MD Pulmonary Department [address] [place] [address], [address] [place] [address] Physician Pulmonary Disease 09/06/17 06/22/20 documented as of this encounter
--- OUTSIDE RECORDS SUMMARY | 2025-05-16 16:26 | XMS_ITS | Encounter Summary ---
Author Organization [facility] and [facility] Address [address] [place] [address] Care Team Providers Care Paramedic Name Role Phone Caitlyn Bowie MD Primary Care Provider +1- [phone] Encounter Details Date Type Department Care Team (Late st Contact Info) Description 07/12/2019 Scanned Document [facility] at [address] [place] [address] Norma Renee MD [address] [place] [address] 2 [place] [phone] Social History Tobacco Use Types Packs/Day Years [...] as of this encounter Care Teams Paramedic Relationship Specialty Start Date End Date Caitlyn Bowie MD 3400 [facility] 1 [place] [address] PCP - General Internal Medicine 05/06/21 Henry Kelly MD Pulmonary Department 175 [facility], [address] [place] [address] Physician Pulmonary Disease 09/06/17 06/22/20 documented as of this encounter
--- OUTSIDE RECORDS SUMMARY | 2025-05-16 16:26 | XMS_ITS | Encounter Summary ---
Author Organization [facility] and [facility] Address [address] [place] [address] Care Team Providers Care Communication Center Coordinator Name Role Phone Caitlyn Bowie MD Primary Care Provider +1- [phone] Encounter Details Date Type Department Care Team (Late st Contact Info) Description 08/29/2019 Scanned Document [facility] at [address] [address] External, Provider Social History Tobacco Use Types [...] documented as of this encounter Care Teams Communication Center Coordinator Relationship Specialty Start Date End Date Caitlyn Bowie MD 3400 [facility] 1 [place] [address] PCP - General Internal Medicine 05/06/21 Henry Kelly MD Pulmonary Department 175 [facility], [address] [place] [address] Physician Pulmonary Disease 09/06/17 06/22/20 documented as of this encounter
--- OUTSIDE RECORDS SUMMARY | 2025-05-16 16:26 | XMS_ITS | Encounter Summary ---
Author Organization [facility] and [facility] Address [address] [place] [address] Care Team Providers Care Hide Mill Worker Name Role Phone Caitlyn Bowie MD Primary Care Provider +1- [phone] Encounter Details Date Type Department Care Team ([facility] st Contact Info) Description 04/18/2013 Documentation [facility] at [address] [address] Isis Ragland RN Social History Tobacco Use [...] as of this encounter Care Teams Hide Mill Worker Relationship Specialty Start Date End Date Caitlyn Bowie MD [address] [address] PCP - General Internal Medicine 05/06/21 Henry Kelly MD Pulmonary Department [address] [place] [address] [address] [place] [address] Physician Pulmonary Disease 09/06/17 06/22/20 documented as of this encounter
--- OUTSIDE RECORDS SUMMARY | 2025-05-16 16:26 | XMS_ITS | Encounter Summary ---
Author Organization [facility] and [facility] Address [address] [place] [address] Care Team Providers Care It Telecom Technician Name Role Phone Caitlyn Bowie MD Primary Care Provider +1- [phone] Encounter Details Date Type Department Care Team (Late st Contact Info) Description 07/01/2019 Scanned Document [facility] at [address] [place] [address] Norma Renee MD [address] [place] [address] 2 [place] [phone] Social History Tobacco Use Types Packs/Day Years [...] 3400 [facility] 1 [place] [address] PCP - General Internal Medicine 05/06/21 Henry Kelly MD Pulmonary Department 175 [facility], [address] [place] [address] Physician Pulmonary Disease 09/06/17 06/22/20 documented as of this encounter
--- OUTSIDE RECORDS SUMMARY | 2025-05-16 16:26 | XMS_ITS | Encounter Summary ---
Author Organization [facility] and [facility] Address [address] [place] [address] Care Team Providers Care Family Resource Management Professor Name Role Phone Caitlyn Bowie MD Primary Care Provider +1- [phone] Encounter Details Date Type Department Care Team (Late st Contact Info) Description 12/19/2016 Scanned Document [facility] Health Information Management [address] [place] [phone] External, Provider Social History Tobacco Use Types [...] as of this encounter Care Teams Family Resource Management Professor Relationship Specialty Start Date End Date Caitlyn Bowie MD [address] [facility] 1 [place] [address] PCP - General Internal Medicine 05/06/21 Henry Kelly MD Pulmonary Department 175 [facility], [address] [place] [address] Physician Pulmonary Disease 09/06/17 06/22/20 documented as of this encounter
--- OUTSIDE RECORDS SUMMARY | 2025-05-16 16:26 | XMS_ITS | Encounter Summary ---
Author Organization [facility] and [facility] Address [address] [place] [address] Care Team Providers Care Bank Boss Name Role Phone Caitlyn Bowie MD Primary Care Provider +1- [phone] Encounter Details Date Type Department Care Team ([facility] st Contact Info) Description 09/16/2020 Scanned Document [facility] Health Information Management [address] [place] [address] External, Provider Social History Tobacco Use [...] as of this encounter Care Teams Bank Boss Relationship Specialty Start Date End Date Caitlyn Bowie MD [address] [address] PCP - General Internal Medicine 05/06/21 documented as of this encounter
--- OUTSIDE RECORDS SUMMARY | 2025-05-16 16:26 | XMS_ITS | Encounter Summary ---
Author Organization [facility] and [facility] Address [address] [place] [address] Care Team Providers Care Upper Shaper Name Role Phone Caitlyn Bowie MD Primary Care Provider +1- [phone] Encounter Details Date Type Department Care Team ([facility] st Contact Info) Description 09/18/2020 Scanned Document [facility] Health Information Management [address] [place] [address] External, Provider Social History Tobacco Use Types [...] as of this encounter Care Teams Upper Shaper Relationship Specialty Start Date End Date Caitlyn Bowie MD [address] [address] PCP - General Internal Medicine 05/06/21 documented as of this encounter
--- OUTSIDE RECORDS SUMMARY | 2025-05-16 16:26 | XMS_ITS | Encounter Summary ---
Author Organization [facility] and [facility] Address [address] [place] [address] Care Team Providers Care Laborer Turkey Farm Name Role Phone Caitlyn Bowie MD Primary Care Provider +1- [phone] Encounter Details Date Type Department Care Team (Late st Contact Info) Description 06/27/2019 Scanned Document [facility] at [address] [place] [address] Norma Renee MD [address] [place] [address] 2 [place] [phone] Social History Tobacco Use Types Packs/Day Years [...] as of this encounter Care Teams Laborer Turkey Farm Relationship Specialty Start Date End Date Caitlyn Bowie MD 3400 [facility] 1 [place] [address] PCP - General Internal Medicine 05/06/21 Henry Kelly MD Pulmonary Department 175 [facility], [address] [place] [address] Physician Pulmonary Disease 09/06/17 06/22/20 documented as of this encounter
--- OUTSIDE RECORDS SUMMARY | 2025-05-16 16:26 | XMS_ITS | Encounter Summary ---
Author Organization [facility] Address [address] [place] [address] Care Team Providers Care Active Directory Systems Administrator Name Role Phone Caitlyn Bowie MD Primary Care Provider +1- [phone] Encounter Details Date Type Department Care Team ([facility] st Contact Info) Description 07/26/2012 Abstract [facility] Health Information Management [address] [place] [address] [place], Primary Care [address] [place] [phone] Social History Tobacco Use Types Packs/Day Years [...] documented as of this encounter Care Teams Active Directory Systems Administrator Relationship Specialty Start Date End Date Caitlyn Bowie MD 3400 [facility] 1 [place] [address] PCP - General Internal Medicine 05/06/21 Henry Kelly MD Pulmonary Department [address] [place] [address], [address] [place] [address] Physician Pulmonary Disease 09/06/17 06/22/20 documented as of this encounter
--- OUTSIDE RECORDS SUMMARY | 2025-05-16 16:26 | XMS_ITS | Encounter Summary ---
Author Organization [facility] and [facility] Address [address] [place] [address] Care Team Providers Care Acid Painter Name Role Phone Caitlyn Bowie MD Primary Care Provider +1- [phone] Encounter Details Date Type Department Care Team ([facility] st Contact Info) Description 08/16/2012 Abstract [facility] Health Information Management [address] [place] [address] [place], Primary Care [address] [place] [address] Social History Tobacco Use Types Packs/Day Years [...] as of this encounter Care Teams Acid Painter Relationship Specialty Start Date End Date Caitlyn Bowie MD [address] [facility] 1 [place] [address] PCP - General Internal Medicine 05/06/21 Henry Kelly MD Pulmonary Department [address] [place] [address], [address] [place] [address] Physician Pulmonary Disease 09/06/17 06/22/20 documented as of this encounter
--- OUTSIDE RECORDS SUMMARY | 2025-05-16 16:26 | XMS_ITS | Encounter Summary ---
Author Organization [facility] and [facility] Address [address] [place] [address] Care Team Providers Care Lockstitch Collar Setter Name Role Phone Caitlyn Bowie MD Primary Care Provider +1- [phone] Encounter Details Date Type Department Care Team (Late st Contact Info) Description 06/21/2012 Abstract [facility] at [address] [address] Mikel Lloyd MD [address] [place] [phone] Social History Tobacco Use Types Packs/Day Years [...] as of this encounter Care Teams Lockstitch Collar Setter Relationship Specialty Start Date End Date Caitlyn Bowie MD [address] [address] PCP - General Internal Medicine 05/06/21 Henry Kelly MD Pulmonary Department 175 [facility], [address] [place] [address] Physician Pulmonary Disease 09/06/17 06/22/20 documented as of this encounter
--- OUTSIDE RECORDS SUMMARY | 2025-05-16 16:26 | XMS_ITS | Encounter Summary ---
Author Organization [facility] and [facility] Address [address] [place] [address] Care Team Providers Care Strickler Attendant Name Role Phone Caitlyn Bowie MD Primary Care Provider +1- [phone] Encounter Details Date Type Department Care Team (Latest Contact Info) Description 04/15/2013 Transcribed Orders [facility] [address] [place] [address] Tian Atwood MD [address] [place] [phone] Unspecified hypothyroidism (Primary Dx) Social History [...] EDT) Copper, Serum Total SEE BELOW [facility] Comment: Test Result Flag Unit RefValue Copper, S 1.35 mcg/mL 0.75-1.45 04/15/2013 4:31 PM EDT us Tian Atwood MD LAB BLOOD ORDERABLES Final R esult Performing Organization Address City/State/[facility] Co de Phone Number [facility] [address] [place] [address] documented in this encounter Visit Diagnoses Diagnosis Unspecified hypothyroidism- Primary documented in this encounter Additional Health Concerns Infection Onset Date Last Indicated Resolved Time COVID-19 03/05/2022 03/05/2022 03/15/2022 7:18 PM EDT documented as of this encounter Care Teams Strickler Attendant Relationship Specialty Start Date End Date Caitlyn Bowie MD 3400 [facility] 1 [place] [address] PCP - General Internal Medicine 05/06/21 Henry Kelly MD Pulmonary Department 175 [facility], [address] [place] [address] Physician Pulmonary Disease 09/06/17 06/22/20 documented as of this encounter
--- OUTSIDE RECORDS SUMMARY | 2025-05-16 16:26 | XMS_ITS | Encounter Summary ---
Author Organization [facility] and [facility] Address [address] [place] [address] Care Team Providers Care Supervisor Wall Mirror Department Name Role Phone Caitlyn Bowie MD Primary Care Provider +1- [phone] Encounter Details Date Type Department Care Team (Late st Contact Info) Description 06/27/2019 Scanned Document [facility] at [address] [place] [address] Norma Renee MD [address] [place] [address] 2 [place] [phone] Social History Tobacco Use Types Packs/Day Years [...] as of this encounter Care Teams Supervisor Wall Mirror Department Relationship Specialty Start Date End Date Caitlyn Bowie MD 3400 [facility] 1 [place] [address] PCP - General Internal Medicine 05/06/21 Henry Kelly MD Pulmonary Department 175 [facility], [address] [place] [address] Physician Pulmonary Disease 09/06/17 06/22/20 documented as of this encounter
--- OUTSIDE RECORDS SUMMARY | 2025-05-16 16:26 | XMS_ITS | Encounter Summary ---
Author Organization [facility] and [facility] Address [address] [place] [address] Care Team Providers Care Cumulative Effects Analyst Name Role Phone Caitlyn Bowie MD Primary Care Provider +1- [phone] Encounter Details Date Type Department Care Team (Late st Contact Info) Description 12/16/2016 Scanned Document [facility] Health Information Management [address] [place] [address] External, Provider Social History Tobacco Use Types [...] documented as of this encounter Care Teams Cumulative Effects Analyst Relationship Specialty Start Date End Date Caitlyn Bowie MD 3400 [facility] 1 [place] [address] PCP - General Internal Medicine 05/06/21 Henry Kelly MD Pulmonary Department [address] [place] [address], [address] [place] [address] Physician Pulmonary Disease 09/06/17 06/22/20 documented as of this encounter
--- OUTSIDE RECORDS SUMMARY | 2025-05-16 16:26 | XMS_ITS | Encounter Summary ---
Author Organization [facility] and [facility] Address [address] [place] [address] Care Team Providers Care Supervisor Dyer Name Role Phone Caitlyn Bowie MD Primary Care Provider +1- [phone] Encounter Details Date Type Department Care Team ([facility] st Contact Info) Description 09/15/2020 Scanned Document [facility] Health Information Management [address] [place] [address] External, Provider Social History Tobacco Use Types [...] as of this encounter Care Teams Supervisor Dyer Relationship Specialty Start Date End Date Caitlyn Bowie MD [address] [address] PCP - General Internal Medicine 05/06/21 documented as of this encounter
--- OUTSIDE RECORDS SUMMARY | 2025-05-16 16:26 | XMS_ITS | Encounter Summary ---
Author Organization [facility] and [facility] Address [address] [place] [address] Care Team Providers Care Promotional Marketing Analyst Name Role Phone Caitlyn Bowie MD Primary Care Provider +1- [phone] Encounter Details Date Type Department Care Team (Late st Contact Info) Description 12/16/2016 Scanned Document [facility] Health Information Management [address] [place] [address] External, Provider Social History Tobacco Use Types [...] as of this encounter Care Teams Promotional Marketing Analyst Relationship Specialty Start Date End Date Caitlyn Bowie MD 3400 [facility] 1 [place] [address] PCP - General Internal Medicine 05/06/21 Henry Kelly MD Pulmonary Department 175 [facility], [address] [place] [address] Physician Pulmonary Disease 09/06/17 06/22/20 documented as of this encounter
--- OUTSIDE RECORDS SUMMARY | 2025-05-16 16:26 | XMS_ITS | Encounter Summary ---
Author Organization [facility] and [facility] Address [address] [place] [address] Care Team Providers Care Asphalt Machine Operator Name Role Phone Caitlyn Bowie MD Primary Care Provider +1- [phone] Encounter Details Date Type Department Care Team (Late st Contact Info) Description 01/28/2013 Scanned Document Thoracic Oncology Program at [address] [address] Solo Henry MD [address] [place] [phone] Social History Tobacco Use Types Packs/Day [...] Start Date End Date Caitlyn Bowie MD [address] [address] PCP - General Internal Medicine 05/06/21 Henry Kelly MD Pulmonary Department [address] [place] [address], [address] [place] [address] Physician Pulmonary Disease 09/06/17 06/22/20 documented as of this encounter
--- OUTSIDE RECORDS SUMMARY | 2025-05-16 16:26 | XMS_ITS | Encounter Summary ---
Author Organization [facility] and [facility] Address [address] [place] [address] Care Team Providers Care Residential Mental Health Worker Name Role Phone Caitlyn Bowie MD Primary Care Provider +1- [phone] Encounter Details Date Type Department Care Team (Late st Contact Info) Description 06/27/2019 Scanned Document [facility] at [address] [place] [address] Norma Renee MD [address] [place] [address] 2 [place] [phone] Social History Tobacco Use Types Packs/Day Years [...] as of this encounter Care Teams Residential Mental Health Worker Relationship Specialty Start Date End Date Caitlyn Bowie MD 3400 [facility] 1 [place] [address] PCP - General Internal Medicine 05/06/21 Henry Kelly MD Pulmonary Department 175 [facility], [address] [place] [address] Physician Pulmonary Disease 09/06/17 06/22/20 documented as of this encounter
--- OUTSIDE RECORDS SUMMARY | 2025-05-16 16:26 | XMS_ITS | Encounter Summary ---
Author Organization [facility] Address [address] [place] [address] Care Team Providers Care Senior Packaging Engineer Name Role Phone Caitlyn Bowie MD Primary Care Provider +1- [phone] Encounter Details Date Type Department Care Team ([facility] st Contact Info) Description 12/16/2016 Scanned Document [facility] Health Information Management [address] [place] [phone] External, Provider Social History Tobacco Use Types [...] as of this encounter Care Teams Senior Packaging Engineer Relationship Specialty Start Date End Date Caitlyn Bowie MD [address] [address] PCP - General Internal Medicine 05/06/21 Henry Kelly MD Pulmonary Department 175 [facility], [address] [place] [address] Physician Pulmonary Disease 09/06/17 06/22/20 documented as of this encounter
--- OUTSIDE RECORDS SUMMARY | 2025-05-16 16:26 | XMS_ITS | Encounter Summary ---
Author Organization [facility] Address [address] [place] [address] Care Team Providers Care Weight Tester Name Role Phone Caitlyn Bowie MD Primary Care Provider +1- [phone] Encounter Details Date Type Department Care Team (Late st Contact Info) Description 01/28/2013 Scanned Document Thoracic Oncology Program at [address] [address] Solo Henry MD [address] [place] [phone] Social History Tobacco Use Types Packs/Day [...] as of this encounter Care Teams Weight Tester Relationship Specialty Start Date End Date Caitlyn Bowie MD [address] [address] PCP - General Internal Medicine 05/06/21 Henry Kelly MD Pulmonary Department [address] [place] [address], [address] [place] [address] Physician Pulmonary Disease 09/06/17 06/22/20 documented as of this encounter
--- OUTSIDE RECORDS SUMMARY | 2025-05-16 16:26 | XMS_ITS | Encounter Summary ---
Author Organization [facility] and [facility] Address [address] [place] [address] Care Team Providers Care Metal Or Wood Blocker Name Role Phone Caitlyn Bowie MD Primary Care Provider +1- [phone] Encounter Details Date Type Department Care Team (Late st Contact Info) Description 09/09/2020 Scanned Document [facility] Health Information Management [address] [place] [phone] External, Provider Social History Tobacco Use Types [...] as of this encounter Care Teams Metal Or Wood Blocker Relationship Specialty Start Date End Date Caitlyn Bowie MD [address] [address] PCP - General Internal Medicine 05/06/21 documented as of this encounter
--- OUTSIDE RECORDS SUMMARY | 2025-05-16 16:26 | XMS_ITS | Encounter Summary ---
Author Organization [facility] and [facility] Address [address] [place] [address] Care Team Providers Care Boat Driver Name Role Phone Caitlyn Bowie MD Primary Care Provider +1- [phone] Encounter Details Date Type Department Care Team (Late st Contact Info) Description 09/07/2020 Scanned Document Cardiovascular Medicine at 175 [facility] 175 [facility] THIRD [place], [place] [address] Norma Renee MD [address] [place] [phone] Social History Tobacco Use Types Packs/Day Years [...] as of this encounter Care Teams Boat Driver Relationship Specialty Start Date End Date Caitlyn Bowie MD [address] [address] PCP - General Internal Medicine 05/06/21 documented as of this encounter
--- OUTSIDE RECORDS SUMMARY | 2025-05-16 16:26 | XMS_ITS | Encounter Summary ---
Author Organization [facility] and [facility] Address [address] [place] [address] Care Team Providers Care Visual Basic Developer Name Role Phone Caitlyn Bowie MD Primary Care Provider +1- [phone] Encounter Details Date Type Department Care Team (Late st Contact Info) Description 04/26/2017 Scanned Document Cardiovascular Medicine at [address] [place], [place] [address] Norma Renee MD [address] [place] [phone] Social History Tobacco Use Types Packs/Day [...] as of this encounter Care Teams Visual Basic Developer Relationship Specialty Start Date End Date Caitlyn Bowie MD [address] [address] PCP - General Internal Medicine 05/06/21 Henry Kelly MD Pulmonary Department [address] [place] [address], [address] [place] [address] Physician Pulmonary Disease 09/06/17 06/22/20 documented as of this encounter
--- OUTSIDE RECORDS SUMMARY | 2025-05-16 16:26 | XMS_ITS | Encounter Summary ---
Author Organization [facility] Address [address] [place] [address] Care Team Providers Care Machine Printer Hose Name Role Phone Caitlyn Bowie MD Primary Care Provider +1- [phone] Encounter Details Date Type Department Care Team (Late st Contact Info) Description 11/26/2019 Scanned Document [facility] Center at [address] [address] External, Provider Social History Tobacco Use Types [...] as of this encounter Care Teams Machine Printer Hose Relationship Specialty Start Date End Date Caitlyn Bowie MD 3400 [facility] 1 [place] [address] PCP - General Internal Medicine 05/06/21 Henry Kelly MD Pulmonary Department 175 [facility], [address] [place] [address] Physician Pulmonary Disease 09/06/17 06/22/20 documented as of this encounter
--- OUTSIDE RECORDS SUMMARY | 2025-05-16 16:26 | XMS_ITS | Encounter Summary ---
Author Organization [facility] and [facility] Address [address] [place] [address] Care Team Providers Care Domestic Travel Consultant Name Role Phone Caitlyn Bowie MD Primary Care Provider +1- [phone] Encounter Details Date Type Department Care Team (Late st Contact Info) Description 09/15/2020 Scanned Document [facility] Center at [address] [address] External, Provider Social History Tobacco Use Types [...] as of this encounter Care Teams Domestic Travel Consultant Relationship Specialty Start Date End Date Caitlyn Bowie MD [address] [address] PCP - General Internal Medicine 05/06/21 documented as of this encounter
--- OUTSIDE RECORDS SUMMARY | 2025-05-16 16:26 | XMS_ITS | Encounter Summary ---
Author Organization [facility] and [facility] Address [address] [place] [address] Care Team Providers Care Cooker Syrup Name Role Phone Caitlyn Bowie MD Primary Care Provider +1- [phone] Encounter Details Date Type Department Care Team (Late st Contact Info) Description 12/03/2019 Scanned Document [facility] Health Information Management [address] [place] [address] External, Provider Social History Tobacco Use Types [...] documented as of this encounter Care Teams Cooker Syrup Relationship Specialty Start Date End Date Caitlyn Bowie MD [address] [address] PCP - General Internal Medicine 05/06/21 Henry Kelly MD Pulmonary Department [address] [place] [address], [address] [place] [address] Physician Pulmonary Disease 09/06/17 06/22/20 documented as of this encounter
--- OUTSIDE RECORDS SUMMARY | 2025-05-16 16:26 | XMS_ITS | Encounter Summary ---
Author Organization [facility] and [facility] Address [address] [place] [address] Care Team Providers Care City Superintendent Of Schools Name Role Phone Caitlyn Bowie MD Primary Care Provider +1- [phone] Encounter Details Date Type Department Care Team (Late st Contact Info) Description 12/16/2016 Scanned Document [facility] Health Information Management [address] [place] [address] External, Provider Social History Tobacco Use Types [...] as of this encounter Care Teams City Superintendent Of Schools Relationship Specialty Start Date End Date Caitlyn Bowie MD 3400 [facility] 1 [place] [address] PCP - General Internal Medicine 05/06/21 Henry Kelly MD Pulmonary Department 175 [facility], [address] [place] [address] Physician Pulmonary Disease 09/06/17 06/22/20 documented as of this encounter
--- OUTSIDE RECORDS SUMMARY | 2025-05-16 16:26 | XMS_ITS | Encounter Summary ---
Author Organization [facility] and [facility] Address [address] [place] [address] Care Team Providers Care Justowriter Operator Name Role Phone Caitlyn Bowie MD Primary Care Provider +1- [phone] Encounter Details Date Type Department Care Team ([facility] st Contact Info) Description 04/27/2017 Scanned Document [facility] Health Information Management [address] [place] [address] External, Provider Social History Tobacco Use Types [...] documented as of this encounter Care Teams Justowriter Operator Relationship Specialty Start Date End Date Caitlyn Bowie MD [address] [address] PCP - General Internal Medicine 05/06/21 Henry Kelly MD Pulmonary Department 175 [facility], [address] [place] [address] Physician Pulmonary Disease 09/06/17 06/22/20 documented as of this encounter
--- OUTSIDE RECORDS SUMMARY | 2025-05-16 16:27 | XMS_ITS | Encounter Summary ---
Author Organization [facility] and [facility] Address [address] [place] [address] Care Team Providers Care Special Assets Officer Name Role Phone Caitlyn Bowie MD Primary Care Provider +1- [phone] Encounter Details Date Type Department Care Team ([facility] st Contact Info) Description 04/13/2021 Scanned Document INTERFACE DEFAULT [address] [place] [address] System, Provider Not In Social History Tobacco [...] as of this encounter Care Teams Special Assets Officer Relationship Specialty Start Date End Date Caitlyn Bowie MD [address] [address] PCP - General Internal Medicine 05/06/21 documented as of this encounter
--- OUTSIDE RECORDS SUMMARY | 2025-05-16 16:27 | XMS_ITS | Encounter Summary ---
Author Organization [facility] and [facility] Address [address] [place] [address] Care Team Providers Care Cad Intern Name Role Phone Caitlyn Bowie MD Primary Care Provider +1- [phone] Encounter Details Date Type Department Care Team (Late st Contact Info) Description 03/22/2021 Scanned Document INTERFACE DEFAULT [address] [place] [address] System, Provider Not In Social History Tobacco [...] as of this encounter Care Teams Cad Intern Relationship Specialty Start Date End Date Caitlyn oBwie MD [address] [address] PCP - General Internal Medicine 05/06/21 documented as of this encounter
--- OUTSIDE RECORDS SUMMARY | 2025-05-16 16:27 | XMS_ITS | Encounter Summary ---
Author Organization [facility] and [facility] Address [address] [place] [address] Care Team Providers Care Wardrobe Custodian Name Role Phone Caitlyn Bowie MD Primary Care Provider +1- [phone] Encounter Details Date Type Department Care Team (Late st Contact Info) Description 04/02/2021 Scanned Document INTERFACE DEFAULT [address] [place] [address] System, Provider Not In Social History Tobacco [...] End Date Caitlyn Bowie MD [address] [address] PCP - General Internal Medicine 05/06/21 documented as of this encounter
--- OUTSIDE RECORDS SUMMARY | 2025-05-16 16:27 | XMS_ITS | Encounter Summary ---
Author Organization [facility] and [facility] Address [address] [place] [address] Care Team Providers Care Lean Coach Name Role Phone Caitlyn Bowie MD Primary Care Provider +1- [phone] Encounter Details Date Type Department Care Team ([facility] st Contact Info) Description 03/08/2021 Scanned Document INTERFACE DEFAULT [address] [place] [address] System, Provider Not In Social History Tobacco [...] as of this encounter Care Teams Lean Coach Relationship Specialty Start Date End Date Caitlyn Bowie MD [address] [address] PCP - General Internal Medicine 05/06/21 documented as of this encounter
--- OUTSIDE RECORDS SUMMARY | 2025-05-16 16:27 | XMS_ITS | Encounter Summary ---
Author Organization [facility] and [facility] Address [address] [place] [address] Care Team Providers Care Electric Organ Inspector And Repairer Name Role Phone Caitlyn Bowie MD Primary Care Provider +1- [phone] Encounter Details Date Type Department Care Team (Late st Contact Info) Description 03/16/2021 Scanned Document INTERFACE DEFAULT [address] [place] [address] System, Provider Not In Social History Tobacco [...] as of this encounter Care Teams Electric Organ Inspector And Repairer Relationship Specialty Start Date End Date Caitlyn Bowie MD [address] [address] PCP - General Internal Medicine 05/06/21 documented as of this encounter
--- OUTSIDE RECORDS SUMMARY | 2025-05-16 16:27 | XMS_ITS | Encounter Summary ---
Author Organization [facility] and [facility] Address [address] [place] [address] Care Team Providers Care Internal Security Manager Name Role Phone Caitlyn Bowie MD Primary Care Provider +1- [phone] Encounter Details Date Type Department Care Team ([facility] st Contact Info) Description 03/23/2021 Scanned Document INTERFACE DEFAULT [address] [place] [address] System, Provider Not In Social History Tobacco [...] End Date Caitlyn Bowie MD [address] [address] PCP - General Internal Medicine 05/06/21 documented as of this encounter
--- OUTSIDE RECORDS SUMMARY | 2025-05-16 16:27 | XMS_ITS | Encounter Summary ---
Author Organization [facility] Address [address] [place] [address] Care Team Providers Care Deputy Sheriff Civil Division Name Role Phone Caitlyn Bowie MD Primary Care Provider +1- [phone] Encounter Details Date Type Department Care Team (Late st Contact Info) Description 08/09/2017 Scanned Document [facility] at [address] [place] [address] System, Provider Not In Social History Tobacco [...] of this encounter Care Teams Deputy Sheriff Civil Division Relationship Specialty Start Date End Date Caitlyn Bowie MD 3400 [facility] 1 [place] [address] PCP - General Internal Medicine 05/06/21 Henry Kelly MD Pulmonary Department 175 [facility], [address] [place] [address] Physician Pulmonary Disease 09/06/17 06/22/20 documented as of this encounter
--- OUTSIDE RECORDS SUMMARY | 2025-05-16 16:27 | XMS_ITS | Encounter Summary ---
Author Organization [facility] and [facility] Address [address] [place] [address] Care Team Providers Care Finance Lead Name Role Phone Caitlyn Bowie MD Primary Care Provider +1- [phone] Encounter Details Date Type Department Care Team ([facility] st Contact Info) Description 01/26/2018 Scanned Document [facility] Health Information Management [address] [place] [address] External, Provider Social History Tobacco Use Types [...] as of this encounter Care Teams Finance Lead Relationship Specialty Start Date End Date Caitlyn Bowie MD [address] [address] PCP - General Internal Medicine 05/06/21 Henry Kelly MD Pulmonary Department 175 [facility], [address] [place] [address] Physician Pulmonary Disease 09/06/17 06/22/20 documented as of this encounter
--- OUTSIDE RECORDS SUMMARY | 2025-05-16 16:27 | XMS_ITS | Encounter Summary ---
Author Organization [facility] and [facility] Address [address] [place] [address] Care Team Providers Care Table Hand Name Role Phone Caitlyn Bowie MD Primary Care Provider +1- [phone] Encounter Details Date Type Department Care Team (Late st Contact Info) Description 09/18/2020 Scanned Document INTERFACE DEFAULT [address] [place] [address] System, Provider Not In Social History Tobacco [...] as of this encounter Care Teams Table Hand Relationship Specialty Start Date End Date Caitlyn Bowie MD [address] [address] PCP - General Internal Medicine 05/06/21 documented as of this encounter
--- OUTSIDE RECORDS SUMMARY | 2025-05-16 16:27 | XMS_ITS | Encounter Summary ---
Author Organization [facility] and [facility] Address [address] [place] [address] Care Team Providers Care Failure Analysis Technician Name Role Phone Caitlyn Bowie MD Primary Care Provider +1- [phone] Encounter Details Date Type Department Care Team ([facility] st Contact Info) Description 06/07/2017 Scanned Document [facility] Health Information Management [address] [place] [address] External, Provider Social History Tobacco Use Types [...] documented as of this encounter Care Teams Failure Analysis Technician Relationship Specialty Start Date End Date Caitlyn Bowie MD 3400 [facility] 1 [place] [address] PCP - General Internal Medicine 05/06/21 Henry Kelly MD Pulmonary Department 175 [facility], [address] [place] [address] Physician Pulmonary Disease 09/06/17 06/22/20 documented as of this encounter
--- OUTSIDE RECORDS SUMMARY | 2025-05-16 16:27 | XMS_ITS | Encounter Summary ---
Author Organization [facility] and [facility] Address [address] [place] [phone] Care Team Providers Care Fundraising Specialist Name Role Phone Caitlyn Bowie MD Primary Care Provider +1- [phone] Encounter Details Date Type Department Care Team ([facility] st Contact Info) Description 04/11/2021 Scanned Document INTERFACE DEFAULT [address] [place] [address] System, Provider Not In Social History Tobacco [...] as of this encounter Care Teams Fundraising Specialist Relationship Specialty Start Date End Date Caitlyn Bowie MD [address] [address] PCP - General Internal Medicine 05/06/21 documented as of this encounter
--- OUTSIDE RECORDS SUMMARY | 2025-05-16 16:27 | XMS_ITS | Encounter Summary ---
Author Organization [facility] and [facility] Address [address] [place] [address] Care Team Providers Care Rehabilitation Therapist Name Role Phone Caitlyn Bowie MD Primary Care Provider +1- [phone] Encounter Details Date Type Department Care Team ([facility] st Contact Info) Description 02/25/2021 Scanned Document INTERFACE DEFAULT [address] [place] [address] System, Provider Not In Social History Tobacco [...] End Date Caitlyn Bowie MD [address] [address] PCP - General Internal Medicine 05/06/21 documented as of this encounter
--- OUTSIDE RECORDS SUMMARY | 2025-05-16 16:27 | XMS_ITS | Encounter Summary ---
Author Organization [facility] and [facility] Address [address] [place] [address] Care Team Providers Care Community Nurse Name Role Phone Caitlyn Bowie MD Primary Care Provider +1- [phone] Encounter Details Date Type Department Care Team ([facility] st Contact Info) Description 02/28/2021 Scanned Document INTERFACE DEFAULT [address] [place] [address] System, Provider Not In Social History Tobacco [...] End Date Caitlyn Bowie MD [address] [address] PCP - General Internal Medicine 05/06/21 documented as of this encounter
--- OUTSIDE RECORDS SUMMARY | 2025-05-16 16:27 | XMS_ITS | Encounter Summary ---
Author Organization [facility] and [facility] Address [address] [place] [address] Care Team Providers Care Pressure Dispatcher Name Role Phone Caitlyn Bowie MD Primary Care Provider +1- [phone] Encounter Details Date Type Department Care Team (Late st Contact Info) Description 03/11/2021 Scanned Document INTERFACE DEFAULT [address] [place] [address] System, Provider Not In Social History Tobacco [...] as of this encounter Care Teams Pressure Dispatcher Relationship Specialty Start Date End Date Caitlyn Bowie MD [address] [address] PCP - General Internal Medicine 05/06/21 documented as of this encounter
--- OUTSIDE RECORDS SUMMARY | 2025-05-16 16:27 | XMS_ITS | Encounter Summary ---
Author Organization [facility] and [facility] Address [address] [place] [address] Care Team Providers Care Housekeeping Staff Name Role Phone Caitlyn Bowie MD Primary Care Provider +1- [phone] Encounter Details Date Type Department Care Team ([facility] st Contact Info) Description 11/29/2017 Scanned Document [facility] Health Information Management [address] [place] [address] External, Provider Social History Tobacco Use Types [...] as of this encounter Care Teams Housekeeping Staff Relationship Specialty Start Date End Date Caitlyn Bowie MD 3400 [facility] 1 [place] [address] PCP - General Internal Medicine 05/06/21 Henry Kelly MD Pulmonary Department 175 [facility], [address] [place] [address] Physician Pulmonary Disease 09/06/17 06/22/20 documented as of this encounter
--- OUTSIDE RECORDS SUMMARY | 2025-05-16 16:27 | XMS_ITS | Encounter Summary ---
Author Organization [facility] and [facility] Address [address] [place] [address] Care Team Providers Care Software Development Test Engineer Name Role Phone Caitlyn Bowie MD Primary Care Provider +1- [phone] Encounter Details Date Type Department Care Team (Late st Contact Info) Description 03/01/2021 Scanned Document INTERFACE DEFAULT [address] [place] [address] System, Provider Not In Social History Tobacco [...] as of this encounter Care Teams Software Development Test Engineer Relationship Specialty Start Date End Date Caitlyn Bowie MD [address] [phone] PCP - General Internal Medicine 05/06/21 documented as of this encounter
--- OUTSIDE RECORDS SUMMARY | 2025-05-16 16:27 | XMS_ITS | Clinical Summary ---
Author Organization [address] Address [address] [place] [address] Phone Care Team Providers Care Mems Integration Engineer Name Role Phone Caitlyn Bowie MD Primary Care Provider +1- [phone] Allergies Active Allergy Reactions Criticality Noted Date [...] Team Description 05/06/2025 Telephone Hematology Program at [address] [address] Ronald Mills MD Appointment 04/24/2025 Telephone Hematology Program at [address] [address] Ronald Mills MD Triage 04/18/2025 Scanned Document INTERFACE DEFAULT [address] [place] [address] System, Provider Not In 04/18/2025 Telephone Hematology Program at [address] [address] Ronald Mills MD 04/11/2025 Documentation Cancer [facility] at [address] [place] [address] Taya Nuno RN 04/11/2025 Orders Only Cancer Center at [address] [place] [address] Ronald Mills MD VTE (venous thromboembolism) (Primary Dx); Elevated homocysteine; Antiphospholipid antibody syndrome (HC Code); Feeding difficulties, unspecified 04/05/2025 Telephone OFFICE HELPER [address] [facility] [address] [place] [address] Mary Pan MD Advice Only from Last [...] - 144 mmol/L 04/05/2022 1:43 PM EDT [facility] DEPARTMENT OF LABORATORY [facility] Potassium 4.7 3.3 - 5.3 mmol/L 04/05/2022 1:43 PM EDT [facility] DEPARTMENT [facility] Chloride 100 98 - 107 mmol/L 04/05/2022 1:43 PM EDT [facility] CO2 30 20 - 30 mmol/L 04/05/2022 1:43 PM EDT [facility] DEPARTMENT LAB[facility] Anion Gap 8 7 - 17 04/05/2022 1:43 PM EDT [facility] DEPARTMENT LABORATORY [facility] Glucose 115(H) 70 - 100 mg/dL 04/05/2022 1:43 PM EDT [facility] DEPARTMENT LABORATORY MEDICINE [facility] BUN 16 8 - 23 mg/dL 04/05/2022 1:43 PM EDT [facility] DEPARTMENT LABORATORY [facility] Creatinine 0.89 0.40 - 1.30 mg/dL 04/05/2022 1:43 PM EDT [facility] DEPARTMENT LABORATORY MEDICINE [facility] Calcium 10.5(H) 8.8 - 10.2 mg/dL 04/05/2022 1:43 PM EDT [facility] DEPARTMENT LABORATORY [facility] BUN/Creatinine Ratio 18.0 8.0 - 23.0 03/11 1:43 PM EDT [facility] DEPARTMENT LABORATORY MEDICINE [facility] Total Protein 7.0 6.6 - 8.7 g/dL 04/05/2022 1:43 PM EDT [facility] DEPARTMENT LABORATORY [facility] Albumin 4.2 3.6 - 4.9 g/dL 04/05/2022 1:43 PM T [facility]IC[facility] Total Bilirubin 0.6 <=1.2 mg/dL 04/05/2022 1:43 PM [facility] LABORATORY MEDICINE [facility] Alkaline Phosphatase 58 9 - 122 U/L 04/05/2022 1:43 PM [facility] Alanine Aminotransferase (ALT) 19 10 - 35 U/L 04/05/2022 1:43 PM T [facility] LABORATORY MEDICINE [facility] Comment:Calcium dobesilate c an cause artificially low ALT results at therapeutic concentrations Aspartate Aminotransferase (AST) 26 10 - 35 U/L 04/05/2022 1:43 PM [facility] LABORATORY [facility] Globulin 2.8 2.3 - 3.5 g/dL 04/05/2022 1:43 PM [facility] A/G Ratio 1.5 1.0 - 2.2 04/05/2022 1:43 PM [facility] AST/ALT Ratio 1.4 See Comment 04/05/2022 1:43 PM [facility] DEPARTMENT LABORATORY MEDICINE [facility] Comment: Adult with mild elevations of transaminases (< 5 times upper limit of normal): AST/ALT > 2 suggests alcoholic liver injury AST/ALT < 1 suggests non-alcoholic fatty liver disease (NAFLD) [place] (healthy): AST/ALT can be > 3 on day 0 AST/ALT < 2 by day 5 The thresholds provided focus on the most common etiologies of elevated serum transaminase levels and the associated alteration of AST:ALT ratios; they are not intended to exclude other feasible and clinically appropriate possibilities eGFR (Creatinine) >60 >=60 mL/min/1.7 3m2 04/05/2022 1:43 PM [facility] Comment:Estimated glomerular filtration rate [...] MD LAB BLOOD ORDERABLES Final Resul t [facility] DEPARTMENT OF LABORATORY MEDICINE [facility] [address] [place] [address] * Bone Density Result Scan (05/10/2017) Historical [...] [facility] [address] [place] [address], [facility] [phone] * MAMMOGRAPHY REPORT (04/25/2013 6:47 AM EDT) 04/25/2013 6:47 AM EDT us Provider Not In System IMG SCAN REPORTS Final Re sult from Last 3 Months or Most Recently Relevant to Health Maintenance Insurance MEDICARE [facility] MEDICARE [facility] MEDICARE [facility] MEDICARE MEDICARE [facility] Advance Directives * Full ACLS (Latest Code Status on File) Date Activated Date Inactivated Comments 12/15/2018 7:13 PM 12/16/2018 6:09 PM * Full Interventions Date Activated Date Inactivated Comments 03/18/2016 6:34 PM 03/19/2016 6:40 PM Care Teams Mems Integration Engineer Relationship Specialty Start Date End Date Caitlyn Bowie MD [address] [address] PCP - General Internal Medicine 05/06/21
--- OUTSIDE RECORDS SUMMARY | 2025-05-16 16:27 | XMS_ITS | Encounter Summary ---
Author Organization [facility] and [facility] Address [address] [place] [address] Care Team Providers Care Freelance Operator Name Role Phone Caitlyn Bowie MD Primary Care Provider +1- [phone] Encounter Details Date Type Department Care Team (Late st Contact Info) Description 09/01/2017 Scanned Document [facility] Health Information Management [address] [place] [phone] External, Provider Social History Tobacco Use Types [...] as of this encounter Care Teams Freelance Operator Relationship Specialty Start Date End Date Caitlyn Bowie MD 3400 [facility] 1 [place] [address] PCP - General Internal Medicine 05/06/21 Henry Kelly MD Pulmonary Department 175 [facility], [address] [place] [address] Physician Pulmonary Disease 09/06/17 06/22/20 documented as of this encounter
--- OUTSIDE RECORDS SUMMARY | 2025-05-16 16:27 | XMS_ITS | Encounter Summary ---
Author Organization [facility] and [facility] Address [address] [place] [address] Care Team Providers Care Leasing Director Name Role Phone Caitlyn Bowie MD Primary Care Provider +1- [phone] Encounter Details Date Type Department Care Team (Late st Contact Info) Description 03/01/2017 Scanned Document [facility] at [address] [place] [address] Norma Renee MD [address] [place] [address] 2 [place] [id number] Social History Tobacco Use Types Packs/Day Years [...] as of this encounter Care Teams Leasing Director Relationship Specialty Start Date End Date Caitlyn Bowie MD [address] [address] PCP - General Internal Medicine 05/06/21 Henry Kelly MD Pulmonary Department [address] [place] [address], [address] [place] [address] Physician Pulmonary Disease 09/06/17 06/22/20 documented as of this encounter
--- OUTSIDE RECORDS SUMMARY | 2025-05-16 16:27 | XMS_ITS | Encounter Summary ---
Author Organization [facility] and [facility] Address [address] [place] [address] Care Team Providers Care Miner Placer Name Role Phone Caitlyn Bowie MD Primary Care Provider +1- [phone] Encounter Details Date Type Department Care Team ([facility] st Contact Info) Description 08/23/2017 Scanned Document [facility] Health Information Management [address] [place] [address] External, Provider Social History Tobacco Use Types [...] documented as of this encounter Care Teams Miner Placer Relationship Specialty Start Date End Date Ciatlyn Bowie MD 3400 [facility] 1 [place] [address] PCP - General Internal Medicine 05/06/21 Henry Kelly MD Pulmonary Department 175 [facility], [address] [place] [address] Physician Pulmonary Disease 09/06/17 06/22/20 documented as of this encounter
--- OUTSIDE RECORDS SUMMARY | 2025-05-16 16:27 | XMS_ITS | Encounter Summary ---
Author Organization [facility] and [facility] Address [address] [place] [address] Care Team Providers Care Rehabilitation Psychologist Name Role Phone Caitlyn Bowie MD Primary Care Provider +1- [phone] Encounter Details Date Type Department Care Team ([facility] st Contact Info) Description 08/21/2017 Scanned Document [facility] Health Information Management [address] [place] [address] External, Provider Social History Tobacco Use Types [...] as of this encounter Care Teams Rehabilitation Psychologist Relationship Specialty Start Date End Date Caitlyn Bowie MD 3400 [facility] 1 [place] [address] PCP - General Internal Medicine 05/06/21 Henry Kelly MD Pulmonary Department 175 [facility], [address] [place] [address] Physician Pulmonary Disease 09/06/17 06/22/20 documented as of this encounter
--- OUTSIDE RECORDS SUMMARY | 2025-05-16 16:27 | XMS_ITS | Encounter Summary ---
Author Organization [facility] and [facility] Address [address] [place] [address] Care Team Providers Care Group Insurance Specialist Name Role Phone Caitlyn Bowie MD Primary Care Provider +1- [phone] Encounter Details Date Type Department Care Team (Late st Contact Info) Description 03/14/2021 Scanned Document INTERFACE DEFAULT [address] [place] [address] System, Provider Not In Social History Tobacco [...] as of this encounter Care Teams Group Insurance Specialist Relationship Specialty Start Date End Date Caitlyn Bowie MD [address] [address] PCP - General Internal Medicine 05/06/21 documented as of this encounter
--- OUTSIDE RECORDS SUMMARY | 2025-05-16 16:27 | XMS_ITS | Encounter Summary ---
Author Organization [facility] and [facility] Address [address] [place] [address] Care Team Providers Care Sales Incentive Analyst Name Role Phone Caitlyn Bowie MD Primary Care Provider +1- [phone] Encounter Details Date Type Department Care Team (Late st Contact Info) Description 03/24/2021 Scanned Document INTERFACE DEFAULT [address] [place] [address] System, Provider Not In Social History Tobacco [...] as of this encounter Care Teams Sales Incentive Analyst Relationship Specialty Start Date End Date Caitlyn Bowie MD [address] [address] PCP - General Internal Medicine 05/06/21 documented as of this encounter
--- OUTSIDE RECORDS SUMMARY | 2025-05-16 16:27 | XMS_ITS | Encounter Summary ---
Author Organization [facility] Address [address] [place] [address] Care Team Providers Care Supervisor Hospitality House Name Role Phone Caitlyn Bowie MD Primary Care Provider +1- [phone] Encounter Details Date Type Department Care Team (Late st Contact Info) Description 04/26/2017 Scanned Document Cardi[facility] Medicine at [address] [address] System, Provider Not In Social History Tobacco [...] [address] [facility] 1 [place] [address] PCP - General Internal Medicine 05/06/21 Henry Kelly MD Pulmonary Department 175 [facility], [address] [place] [address] Physician Pulmonary Disease 09/06/17 06/22/20 documented as of this encounter
--- OUTSIDE RECORDS SUMMARY | 2025-05-16 16:27 | XMS_ITS | Encounter Summary ---
Author Organization [facility] and [facility] Address [address] [place] [address] Care Team Providers Care Superintendent Meter Tests Name Role Phone Caitlyn Bowie MD Primary Care Provider +1- [phone] Encounter Details Date Type Department Care Team ([facility] st Contact Info) Description 02/24/2021 Scanned Document INTERFACE DEFAULT [address] [place] [address] System, Provider Not In Social History Tobacco [...] as of this encounter Care Teams Superintendent Meter Tests Relationship Specialty Start Date End Date Caitlyn Bowie MD [facility] [address] [address] PCP - General Internal Medicine 05/06/21 documented as of this encounter
--- OUTSIDE RECORDS SUMMARY | 2025-05-16 16:27 | XMS_ITS | Encounter Summary ---
Author Organization [facility] Address [address] [place] [address] Care Team Providers Care Rinkman Name Role Phone Caitlyn Bowie MD Primary Care Provider +1- [phone] Encounter Details Date Type Department Care Team ([facility] st Contact Info) Description 01/26/2018 Scanned Document [facility] Health Information Management [address] [place] [address] External, Provider Social History Tobacco Use Types [...] documented as of this encounter Care Teams Rinkman Relationship Specialty Start Date End Date Caitlyn Bowie MD 3400 [facility] 1 [place] [address] PCP - General Internal Medicine 05/06/21 Henry Kelly MD Pulmonary Department 175 [facility], [address] [place] [address] Physician Pulmonary Disease 09/06/17 06/22/20 documented as of this encounter
--- OUTSIDE RECORDS SUMMARY | 2025-05-16 16:27 | XMS_ITS | Encounter Summary ---
Author Organization [facility] and [facility] Address [address] [place] [address] Care Team Providers Care Tractor Mechanic Apprentice Name Role Phone Caitlyn Bowie MD Primary Care Provider +1- [phone] Encounter Details Date Type Department Care Team (Late st Contact Info) Description 03/15/2021 Scanned Document INTERFACE DEFAULT [address] [place] [address] System, Provider Not In Social History Tobacco [...] as of this encounter Care Teams Tractor Mechanic Apprentice Relationship Specialty Start Date End Date Caitlyn Bowie MD [address] [address] PCP - General Internal Medicine 05/06/21 documented as of this encounter
--- OUTSIDE RECORDS SUMMARY | 2025-05-16 16:27 | XMS_ITS | Encounter Summary ---
Author Organization [facility] and [facility] Address [address] [place] [address] Care Team Providers Care Mechanical Engineering Manager Name Role Phone Caitlyn Bowie MD Primary Care Provider +1- [phone] Encounter Details Date Type Department Care Team ([facility] st Contact Info) Description 04/21/2021 Scanned Document INTERFACE DEFAULT [address] [place] [address] System, Provider Not In Social History [...] as of this encounter Care Teams Mechanical Engineering Manager Relationship Specialty Start Date End Date Caitlyn Bowie MD [address] [address] PCP - General Internal Medicine 05/06/21 documented as of this encounter
--- OUTSIDE RECORDS SUMMARY | 2025-05-16 16:27 | XMS_ITS | Encounter Summary ---
Author Organization [facility] and [facility] Address [address] [place] [address] Care Team Providers Care Cook Cold Meat Name Role Phone Caitlyn Bowie MD Primary Care Provider +1- [phone] Encounter Details Date Type Department Care Team (Late st Contact Info) Description 02/15/2021 Scanned Document INTERFACE DEFAULT [address] [place] [address] System, Provider Not In Social History Tobacco [...] as of this encounter Care Teams Cook Cold Meat Relationship Specialty Start Date End Date Caitlyn Bowie MD [address] [address] PCP - General Internal Medicine 05/06/21 documented as of this encounter
--- OUTSIDE RECORDS SUMMARY | 2025-05-16 16:27 | XMS_ITS | Encounter Summary ---
Author Organization [facility] and [facility] Address [address] [place] [address] Care Team Providers Care Security And Compliance Project Manager Name Role Phone Caitlyn Bowie MD Primary Care Provider +1- [phone] Encounter Details Date Type Department Care Team ([facility] st Contact Info) Description 04/10/2021 Scanned Document INTERFACE DEFAULT [address] [place] [address] System, Provider Not In Social History Tobacco [...] as of this encounter Care Teams Security And Compliance Project Manager Relationship Specialty Start Date End Date Caitlyn Bowie MD [facility] [address] [address] PCP - General Internal Medicine 05/06/21 documented as of this encounter
--- OUTSIDE RECORDS SUMMARY | 2025-05-16 16:27 | XMS_ITS | Encounter Summary ---
Author Organization [facility] and [facility] Address [address] [place] [address] Care Team Providers Care Management Aide Name Role Phone Caitlyn Bowie MD Primary Care Provider +1- [phone] Encounter Details Date Type Department Care Team (Late st Contact Info) Description 02/21/2017 Scanned Document [facility] Health Information Management [address] [place] [address] External, Provider Social History Tobacco Use Types [...] as of this encounter Care Teams Management Aide Relationship Specialty Start Date End Date Caitlyn Bowie MD 3400 [facility] 1 [place] [address] PCP - General Internal Medicine 05/06/21 Henry Kelly MD Pulmonary Department 175 [facility], [address] [place] [address] Physician Pulmonary Disease 09/06/17 06/22/20 documented as of this encounter
--- OUTSIDE RECORDS SUMMARY | 2025-05-16 16:27 | XMS_ITS | Encounter Summary ---
Author Organization [facility] and [facility] Address [address] [place] [address] Care Team Providers Care Woodworking Machine Operator Name Role Phone Caitlyn Bowie MD Primary Care Provider +1- [phone] Encounter Details Date Type Department Care Team ([facility] st Contact Info) Description 04/12/2021 Scanned Document INTERFACE DEFAULT [address] [place] [address] System, Provider Not In Social History Tobacco [...] as of this encounter Care Teams Woodworking Machine Operator Relationship Specialty Start Date End Date Caitlyn Bowie MD [address] [address] PCP - General Internal Medicine 05/06/21 documented as of this encounter
--- OUTSIDE RECORDS SUMMARY | 2025-05-16 16:27 | XMS_ITS | Encounter Summary ---
Author Organization [facility] and [facility] Address [address] [place] [address] Care Team Providers Care Search Marketing Specialist Name Role Phone Caitlyn Bowie MD Primary Care Provider +1- [phone] Encounter Details Date Type Department Care Team (Late st Contact Info) Description 04/11/2021 Scanned Document [facility] Health Information Management [address] [place] [address] External, Provider Social History Tobacco Use Types [...] as of this encounter Care Teams Search Marketing Specialist Relationship Specialty Start Date End Date Caitlyn Bowie MD [address] [address] PCP - General Internal Medicine 05/06/21 documented as of this encounter
--- OUTSIDE RECORDS SUMMARY | 2025-05-16 16:27 | XMS_ITS | Encounter Summary ---
Author Organization [facility] and [facility] Address [address] [place] [address] Care Team Providers Care Laboratory Secretary Name Role Phone Caitlyn Bowie MD Primary Care Provider +1- [phone] Encounter Details Date Type Department Care Team ([facility] st Contact Info) Description 04/22/2021 Scanned Document INTERFACE DEFAULT [address] [place] [address] System, Provider Not In Social History Tobacco [...] as of this encounter Care Teams Laboratory Secretary Relationship Specialty Start Date End Date Caitlyn Bowie MD [address] [address] PCP - General Internal Medicine 05/06/21 documented as of this encounter
--- OUTSIDE RECORDS SUMMARY | 2025-05-16 16:27 | XMS_ITS | Encounter Summary ---
Author Organization [facility] and [facility] Address [address] [place] [address] Care Team Providers Care Test Analyst Name Role Phone Caitlyn Bowie MD Primary Care Provider +1- [phone] Encounter Details Date Type Department Care Team ([facility] st Contact Info) Description 04/16/2021 Scanned Document INTERFACE DEFAULT [address] [place] [address] System, Provider Not In Social History Tobacco [...] End Date Caitlyn Bowie MD [address] [address] PCP - General Internal Medicine 05/06/21 documented as of this encounter
--- OUTSIDE RECORDS SUMMARY | 2025-05-16 16:28 | XMS_ITS | Encounter Summary ---
Author Organization [facility] and [facility] Address [address] [place] [address] Care Team Providers Care Hydrogenation Still Operator Name Role Phone Caitlyn Bowie MD Primary Care Provider +1- [phone] Encounter Details Date Type Department Care Team ([facility] st Contact Info) Description 02/02/2018 Scanned Document [facility] Health Information Management [address] [place] [address] External, Provider Social History Tobacco Use Types [...] documented as of this encounter Care Teams Hydrogenation Still Operator Relationship Specialty Start Date End Date Caitlyn Bowie MD 3400 [facility] 1 [place] [address] PCP - General Internal Medicine 05/06/21 Henry Kelly MD Pulmonary Department 175 [facility], [address] [place] [address] Physician Pulmonary Disease 09/06/17 06/22/20 documented as of this encounter
--- OUTSIDE RECORDS SUMMARY | 2025-05-16 16:28 | XMS_ITS | Encounter Summary ---
Author Organization [facility] and [facility] Address [address] [place] [address] Care Team Providers Care School Supervisor Name Role Phone Caitlyn Bowie MD Primary Care Provider +1- [phone] Encounter Details Date Type Department Care Team ([facility] st Contact Info) Description 02/02/2021 Scanned Document INTERFACE DEFAULT [address] [place] [address] System, Provider Not In Social History Tobacco [...] as of this encounter Care Teams School Supervisor Relationship Specialty Start Date End Date Caitlyn Bowie MD [address] [address] PCP - General Internal Medicine 05/06/21 documented as of this encounter
--- OUTSIDE RECORDS SUMMARY | 2025-05-16 16:28 | XMS_ITS | Encounter Summary ---
Author Organization [facility] and [facility] Address [address] [place] [address] Care Team Providers Care Globe Cleaner Name Role Phone Caitlyn Bowie MD Primary Care Provider +1- [phone] Encounter Details Date Type Department Care Team ([facility] st Contact Info) Description 11/09/2014 Scanned Document [facility] Health Information Management [address] [place] [address] External, Provider Social History Tobacco Use Types [...] documented as of this encounter Care Teams Globe Cleaner Relationship Specialty Start Date End Date Caitlyn Bowie MD [address] [address] PCP - General Internal Medicine 05/06/21 Henry Kelly MD Pulmonary Department 175 [facility], [address] [place] [address] Physician Pulmonary Disease 09/06/17 06/22/20 documented as of this encounter
--- OUTSIDE RECORDS SUMMARY | 2025-05-16 16:28 | XMS_ITS | Encounter Summary ---
Author Organization [facility] and [facility] Address [address] [place] [address] Care Team Providers Care Salesperson Books Name Role Phone Caitlyn Bowie MD Primary Care Provider +1- [phone] Encounter Details Date Type Department Care Team (Late st Contact Info) Description 11/09/2020 Scanned Document INTERFACE DEFAULT [address] [place] [address] System, Provider Not In Social History [...] End Date Caitlyn Bowie MD [address] [address] PCP - General Internal Medicine 05/06/21 documented as of this encounter
--- OUTSIDE RECORDS SUMMARY | 2025-05-16 16:28 | XMS_ITS | Encounter Summary ---
Author Organization [facility] and [facility] Address [address] [place] [address] Care Team Providers Care Director Museum Or Zoo Name Role Phone Caitlyn Bowie MD Primary Care Provider +1- [phone] Encounter Details Date Type Department Care Team (Late st Contact Info) Description 01/28/2018 Scanned Document [facility] Health Information Management [address] [place] [address] External, Provider Social History Tobacco Use Types [...] as of this encounter Care Teams Director Museum Or Zoo Relationship Specialty Start Date End Date Caitlyn Bowie MD 3400 [facility] 1 [place] [address] PCP - General Internal Medicine 05/06/21 Henry Kelly MD Pulmonary Department [address] [place] [address], [address] [place] [address] Physician Pulmonary Disease 09/06/17 06/22/20 documented as of this encounter
--- OUTSIDE RECORDS SUMMARY | 2025-05-16 16:28 | XMS_ITS | Encounter Summary ---
Author Organization [facility] Address [address] [place] [address] Care Team Providers Care Director Telehealth Name Role Phone Caitlyn Bowie MD Primary Care Provider +1- [phone] Encounter Details Date Type Department Care Team ([facility] st Contact Info) Description 08/26/2014 Documentation [facility] [address] [place] [address] Shilpi Ibarra [address] [place] [address] Social History Tobacco Use Types Packs/Day Years [...] as of this encounter Care Teams Director Telehealth Relationship Specialty Start Date End Date Caitlyn Bowie MD 3400 [facility] 1 [place] [address] PCP - General Internal Medicine 05/06/21 Henry Kelly MD Pulmonary Department 175 [facility], [address] [place] [address] Physician Pulmonary Disease 09/06/17 06/22/20 documented as of this encounter
--- OUTSIDE RECORDS SUMMARY | 2025-05-16 16:28 | XMS_ITS | Encounter Summary ---
Author Organization [facility] and [facility] Address [address] [place] [address] Care Team Providers Care Concrete Block Mason Name Role Phone Caitlyn Bowie MD Primary Care Provider +1- [phone] Encounter Details Date Type Department Care Team ([facility] st Contact Info) Description 02/02/2018 Scanned Document [facility] Health Information Management [address] [place] [address] External, Provider Social History Tobacco Use Types [...] End Date Caitlyn Bowie MD [address] [address] PCP - General Internal Medicine 05/06/21 Henry Kelly MD Pulmonary Department 175 [facility], [address] [place] [address] Physician Pulmonary Disease 09/06/17 06/22/20 documented as of this encounter
--- OUTSIDE RECORDS SUMMARY | 2025-05-16 16:28 | XMS_ITS | Encounter Summary ---
Author Organization [facility] and [facility] Address [address] [place] [address] Care Team Providers Care Defense Travel Administrator Name Role Phone Caitlyn Bowie MD Primary Care Provider +1- [phone] Encounter Details Date Type Department Care Team (Late st Contact Info) Description 01/13/2021 Scanned Document [facility] at [address] [address] External, Provider Social History Tobacco Use Types [...] documented as of this encounter Care Teams Defense Travel Administrator Relationship Specialty Start Date End Date Caitlyn Bowie MD [address] [address] PCP - General Internal Medicine 05/06/21 documented as of this encounter
--- OUTSIDE RECORDS SUMMARY | 2025-05-16 16:28 | XMS_ITS | Encounter Summary ---
Author Organization [facility] and [facility] Address [address] [place] [address] Care Team Providers Care Director Of Materials Management Name Role Phone Caitlyn Bowie MD Primary Care Provider +1- [phone] Encounter Details Date Type Department Care Team ([facility] st Contact Info) Description 01/27/2018 Scanned Document [facility] Health Information Management [address] [place] [address] External, Provider Social History Tobacco Use Types [...] of this encounter Care Teams Director Of Materials Management Relationship Specialty Start Date End Date Caitlyn Bowie MD [address] [address] PCP - General Internal Medicine 05/06/21 Henry Kelly MD Pulmonary Department 175 [facility], [address] [place] [address] Physician Pulmonary Disease 09/06/17 06/22/20 documented as of this encounter
--- OUTSIDE RECORDS SUMMARY | 2025-05-16 16:28 | XMS_ITS | Encounter Summary ---
Author Organization [facility] and [facility] Address [address] [place] [address] Care Team Providers Care Commercial Manager Name Role Phone Caitlyn Bowie MD Primary Care Provider +1- [phone] Encounter Details Date Type Department Care Team (Late st Contact Info) Description 02/11/2021 Scanned Document INTERFACE DEFAULT [address] [place] [address] System, Provider Not In Social History Tobacco [...] as of this encounter Care Teams Commercial Manager Relationship Specialty Start Date End Date Caitlyn Bowie MD [address] [address] PCP - General Internal Medicine 05/06/21 documented as of this encounter
--- OUTSIDE RECORDS SUMMARY | 2025-05-16 16:28 | XMS_ITS | Encounter Summary ---
Author Organization [facility] and [facility] Address [address] [place] [address] Care Team Providers Care Staff Midwife Name Role Phone Caitlyn Bowie MD Primary Care Provider +1- [phone] Encounter Details Date Type Department Care Team ([facility] st Contact Info) Description 01/28/2018 Scanned Document COUNT INCLUDES [facility] Health Information Management [address] [place] [address] External, Provider Social History Tobacco Use Types [...] as of this encounter Care Teams Staff Midwife Relationship Specialty Start Date End Date Caitlyn Bowie MD [address] [address] PCP - General Internal Medicine 05/06/21 Henry Kelly MD Pulmonary Department 175 [facility], [address] [place] [address] Physician Pulmonary Disease 09/06/17 06/22/20 documented as of this encounter
--- OUTSIDE RECORDS SUMMARY | 2025-05-16 16:28 | XMS_ITS | Encounter Summary ---
Author Organization [facility] and [facility] Address [address] [place] [address] Care Team Providers Care Nurse Sane Name Role Phone Caitlyn Bowie MD Primary Care Provider +1- [phone] Encounter Details Date Type Department Care Team (Late st Contact Info) Description 01/27/2021 Scanned Document [facility] at [address] [address] External, Provider Social History Tobacco Use Types [...] as of this encounter Care Teams Nurse Sane Relationship Specialty Start Date End Date Caitlyn Bowie MD [address] [address] PCP - General Internal Medicine 05/06/21 documented as of this encounter
--- OUTSIDE RECORDS SUMMARY | 2025-05-16 16:28 | XMS_ITS | Encounter Summary ---
Author Organization [facility] and [facility] Address [address] [place] [address] Care Team Providers Care Coater Carbon Paper Name Role Phone Caitlyn Bowie MD Primary Care Provider +1- [phone] Encounter Details Date Type Department Care Team (Late st Contact Info) Description 10/07/2013 Scanned Document Thoracic Oncology Program at [facility] 35 [facility] [place] [address] Suzy Kong MD [address] [place] [address] Social History Tobacco Use Types [...] documented as of this encounter Care Teams Coater Carbon Paper Relationship Specialty Start Date End Date Caitlyn Bowie MD [address] [address] PCP - General Internal Medicine 05/06/21 Henry Kelly MD Pulmonary Department [address] [place] [address], [address] [place] [address] Physician Pulmonary Disease 09/06/17 06/22/20 documented as of this encounter
--- OUTSIDE RECORDS SUMMARY | 2025-05-16 16:28 | XMS_ITS | Encounter Summary ---
Author Organization [facility] and [facility] Address [address] [place] [address] Care Team Providers Care Lettuce Cutter Name Role Phone Caitlyn Bowie MD Primary Care Provider +1- [phone] Encounter Details Date Type Department Care Team ([facility] st Contact Info) Description 02/01/2018 Scanned Document [facility] Health Information Management [address] [place] [address] External, Provider Social History Tobacco Use Types [...] documented as of this encounter Care Teams Lettuce Cutter Relationship Specialty Start Date End Date Caitlyn Bowie MD 3400 [facility] 1 [place] [address] PCP - General Internal Medicine 05/06/21 Henry Kelly MD Pulmonary Department 175 [facility], [address] [place] [address] Physician Pulmonary Disease 09/06/17 06/22/20 documented as of this encounter
--- OUTSIDE RECORDS SUMMARY | 2025-05-16 16:28 | XMS_ITS | Encounter Summary ---
Author Organization [facility] and [facility] Address [address] [place] [address] Care Team Providers Care Educational Technician Name Role Phone Caitlyn Bowie MD Primary Care Provider +1- [phone] Encounter Details Date Type Department Care Team (Late st Contact Info) Description 01/30/2018 Scanned Document [facility] Health Information Management [address] [place] [address] External, Provider Social History Tobacco Use Types [...] as of this encounter Care Teams Educational Technician Relationship Specialty Start Date End Date Caitlyn Bowie MD 3400 [facility] 1 [place] [address] PCP - General Internal Medicine 05/06/21 Henry Kelly MD Pulmonary Department [address] [place] [address], [address] [place] [address] Physician Pulmonary Disease 09/06/17 06/22/20 documented as of this encounter
--- OUTSIDE RECORDS SUMMARY | 2025-05-16 16:28 | XMS_ITS | Encounter Summary ---
Author Organization [facility] and [facility] Address [address] [place] [address] Care Team Providers Care Expert Witness Name Role Phone Caitlyn Bowie MD Primary Care Provider +1- [phone] Encounter Details Date Type Department Care Team (Late st Contact Info) Description 01/13/2021 Scanned Document [facility] at [address] [phone] Ronald Mills MD [address] [place] [phone] Social History Tobacco Use Types Packs/Day [...] documented as of this encounter Care Teams Expert Witness Relationship Specialty Start Date End Date Caitlyn Bowie MD [address] [address] PCP - General Internal Medicine 05/06/21 documented as of this encounter
--- OUTSIDE RECORDS SUMMARY | 2025-05-16 16:28 | XMS_ITS | Encounter Summary ---
Author Organization [facility] Address [address] [place] [address] Care Team Providers Care Technical Publications Writer Name Role Phone Caitlyn Bowie MD Primary Care Provider +1- [phone] Encounter Details Date Type Department Care Team (Late st Contact Info) Description 10/16/2013 Scanned Document [facility] [address] [place] [address], 2nd floor [facility], [address] [place], [place] [address] Suzy Kong MD [address] [place] [phone] Social History Tobacco Use Types Packs/Day [...] as of this encounter Care Teams Technical Publications Writer Relationship Specialty Start Date End Date Caitlyn Bowie MD [address] [address] PCP - General Internal Medicine 05/06/21 Henry Kelly MD Pulmonary Department [address] [place] [address], [address] [place] [address] Physician Pulmonary Disease 09/06/17 06/22/20 documented as of this encounter
--- OUTSIDE RECORDS SUMMARY | 2025-05-16 16:28 | XMS_ITS | Encounter Summary ---
Author Organization [facility] and [facility] Address [address] [place] [address] Care Team Providers Care Clinical Informatics Spec Name Role Phone Caitlyn Bowie MD Primary Care Provider +1- [phone] Encounter Details Date Type Department Care Team ([facility] st Contact Info) Description 01/26/2018 Scanned Document [facility] Health Information Management [address] [place] [address] External, Provider Social History Tobacco Use Types [...] as of this encounter Care Teams Clinical Informatics Spec Relationship Specialty Start Date End Date Caitlyn Bowie MD 3400 [facility] 1 [place] [address] PCP - General Internal Medicine 05/06/21 Henry Kelly MD Pulmonary Department 175 [facility], [address] [place] [address] Physician Pulmonary Disease 09/06/17 06/22/20 documented as of this encounter
--- OUTSIDE RECORDS SUMMARY | 2025-05-16 16:28 | XMS_ITS | Encounter Summary ---
Author Organization [facility] Address [address] [place] [address] Care Team Providers Care College Instructor Name Role Phone Caitlyn Bowie MD Primary Care Provider +1- [phone] Encounter Details Date Type Department Care Team (Late st Contact Info) Description 03/14/2025 Scanned Document [facility] Neurology Ophthalmology [address] [place] [address] Shirley Chaidez PA-C [address] [address] Social History Tobacco Use Types Packs/Day Years [...] filedocumented in this encounter Care Teams College Instructor Relationship Specialty Start Date End Date Caitlyn Bowie MD [address] [place] [address] PCP - General Internal Medicine 03/20/23 documented as of this encounter
--- OUTSIDE RECORDS SUMMARY | 2025-05-16 16:28 | XMS_ITS | Encounter Summary ---
Author Organization [facility] Address [address] [place] [address] Care Team Providers Care Coal And Ash Supervisor Name Role Phone Caitlyn Bowie MD Primary Care Provider +1- [phone] Encounter Details Date Type Department Care Team ([facility] st Contact Info) Description 02/07/2021 Scanned Document INTERFACE DEFAULT [address] [place] [address] System, Provider Not In Social History Tobacco [...] as of this encounter Care Teams Coal And Ash Supervisor Relationship Specialty Start Date End Date Caitlyn Bowie MD [address] [address] PCP - General Internal Medicine 05/06/21 documented as of this encounter
--- OUTSIDE RECORDS SUMMARY | 2025-05-16 16:28 | XMS_ITS | Encounter Summary ---
Author Organization [facility] and [facility] Address [address] [place] [address] Care Team Providers Care Sow Farm Barn Technician Name Role Phone Caitlyn Bowie MD Primary Care Provider +1- [phone] Encounter Details Date Type Department Care Team ([facility] st Contact Info) Description 07/31/2015 Scanned Document [facility] Health Information Management [address] [place] [address] External, Provider Social History Tobacco Use Types [...] IMG SCAN REPORTS Edited Result - Final [facility] [place], [place], [facility] documented in this encounter Visit Diagnoses Not on filedocumented in this encounter Additional Health Concerns Infection Onset Date Last Indicated Resolved Time COVID-19 03/05/2022 03/05/2022 03/15/2022 7:18 PM EDT documented as of this encounter Care Teams Sow Farm Barn Technician Relationship Specialty Start Date End Date Caitlyn Bowie MD 3400 [facility] 1 [place] [address] PCP - General Internal Medicine 05/06/21 Henry Kelly MD Pulmonary Department 175 [facility], [address] [place] [address] Physician Pulmonary Disease 09/06/17 06/22/20 documented as of this encounter
--- OUTSIDE RECORDS SUMMARY | 2025-05-16 16:28 | XMS_ITS | Encounter Summary ---
Author Organization [facility] and [facility] Address [address] [place] [address] Care Team Providers Care Sql Etl Developer Name Role Phone Caitlyn Bowie MD Primary Care Provider +1- [phone] Encounter Details Date Type Department Care Team ([facility] st Contact Info) Description 04/28/2015 Scanned Document [facility] Health Information Management [address] [place] [address] External, Provider Social History Tobacco Use Types [...] as of this encounter Care Teams Sql Etl Developer Relationship Specialty Start Date End Date Caitlyn Bowie MD [address] [address] PCP - General Internal Medicine 05/06/21 Henry Kelly MD Pulmonary Department 175 [facility], [address] [place] [address] Physician Pulmonary Disease 09/06/17 06/22/20 documented as of this encounter
--- OUTSIDE RECORDS SUMMARY | 2025-05-16 16:28 | XMS_ITS | Encounter Summary ---
Author Organization [facility] Address [address] [place] [address] Care Team Providers Care Rider Ticket Worker Name Role Phone Caitlyn Bowie MD Primary Care Provider +1- [phone] Encounter Details Date Type Department Care Team (Late st Contact Info) Description 12/21/2020 Scanned Document INTERFACE DEFAULT [address] [place] [address] System, Provider Not In Social History Tobacco [...] documented as of this encounter Care Teams Rider Ticket Worker Relationship Specialty Start Date End Date Caitlyn Bowie MD [address] [address] PCP - General Internal Medicine 05/06/21 documented as of this encounter
--- OUTSIDE RECORDS SUMMARY | 2025-05-16 16:28 | XMS_ITS | Encounter Summary ---
Author Organization [facility] Address [address] [place] [address] Care Team Providers Care Lifter Driver Name Role Phone Caitlyn Bowie MD Primary Care Provider +1- [phone] Encounter Details Date Type Department Care Team ([facility] st Contact Info) Description 06/25/2015 Scanned Document [facility] Health Information Management [address] [place] [address] External, Provider Social History Tobacco Use Types [...] documented as of this encounter Care Teams Lifter Driver Relationship Specialty Start Date End Date Caitlyn Bowie MD [address] [address] PCP - General Internal Medicine 05/06/21 Henry Kelly MD Pulmonary Department 175 [facility], [address] [place] [address] Physician Pulmonary Disease 09/06/17 06/22/20 documented as of this encounter
--- OUTSIDE RECORDS SUMMARY | 2025-05-16 16:28 | XMS_ITS | Encounter Summary ---
Author Organization [facility] and [facility] Address [address] [place] [address] Care Team Providers Care Stull Installer Name Role Phone Caitlyn Bowie MD Primary Care Provider +1- [phone] Encounter Details Date Type Department Care Team ([facility] st Contact Info) Description 01/26/2018 Scanned Document [facility] Health Information Management [address] [place] [address] External, Provider Social History Tobacco Use Types [...] documented as of this encounter Care Teams Stull Installer Relationship Specialty Start Date End Date Caitlyn Bowie MD [address] [facility] 1 [place] [address] PCP - General Internal Medicine 05/06/21 Henry Kelly MD Pulmonary Department 175 [facility], [address] [place] [address] Physician Pulmonary Disease 09/06/17 06/22/20 documented as of this encounter
--- OUTSIDE RECORDS SUMMARY | 2025-05-16 16:28 | XMS_ITS | Encounter Summary ---
Author Organization [facility] and [facility] Address [address] [address] Care Team Providers Care Network Program Manager Name Role Phone Caitlyn Bowie MD Primary Care Provider +1- [phone] Encounter Details Date Type Department Care Team (Late st Contact Info) Description 01/07/2014 Documentation [facility] [address] [place] [address] Shilpi Ibarra [address] [place] [address] Social History Tobacco Use Types Packs/Day Years [...] [facility] is a [facility] [...] as of this encounter Care Teams Network Program Manager Relationship Specialty Start Date End Date Caitlyn Bowie MD 3400 [facility] 1 [place] [address] PCP - General Internal Medicine 05/06/21 Henry Kelly MD Pulmonary Department 175 [facility], [address] [place] [address] Physician Pulmonary Disease 09/06/17 06/22/20 documented as of this encounter
--- OUTSIDE RECORDS SUMMARY | 2025-05-16 16:28 | XMS_ITS | Encounter Summary ---
Author Organization [facility] Address [address] [place] [address] Care Team Providers Care Interpreter Deaf Name Role Phone Caitlyn Bowie MD Primary Care Provider +1- [phone] Encounter Details Date Type Department Care Team ([facility] st Contact Info) Description 01/26/2018 Scanned Document [facility] Health Information Management [address] [place] [phone] External, Provider Social History Tobacco Use Types [...] as of this encounter Care Teams Interpreter Deaf Relationship Specialty Start Date End Date Caitlyn Bowie MD 3400 [facility] Max 1 [place] [address] PCP - General Internal Medicine 05/06/21 Henry Kelly MD Pulmonary Department 175 [facility], [address] [place] [address] Physician Pulmonary Disease 09/06/17 06/22/20 documented as of this encounter
--- OUTSIDE RECORDS SUMMARY | 2025-05-16 16:28 | XMS_ITS | Encounter Summary ---
Author Organization [facility] Address [address] [place] [address] Care Team Providers Care Day Care Home Mother Name Role Phone Caitlyn Bowie MD Primary Care Provider +1- [phone] Encounter Details Date Type Department Care Team (Late st Contact Info) Description 01/27/2018 Scanned Document [facility] Health Information Management [address] [place] [address] External, Provider Social History Tobacco Use Types [...] documented as of this encounter Care Teams Day Care Home Mother Relationship Specialty Start Date End Date Caitlyn Bowie MD 3400 [facility] 1 [place] [address] PCP - General Internal Medicine 05/06/21 Henry Kelly MD Pulmonary Department 175 [facility], [address] [place] [address] Physician Pulmonary Disease 09/06/17 06/22/20 documented as of this encounter
--- OUTSIDE RECORDS SUMMARY | 2025-05-16 16:28 | XMS_ITS | Encounter Summary ---
Author Organization [facility] and [facility] Address [address] [place] [address] Care Team Providers Care Sustainability Project Coordinator Name Role Phone Caitlyn Bowie MD Primary Care Provider +1- [phone] Encounter Details Date Type Department Care Team ([facility] st Contact Info) Description 02/03/2021 Scanned Document [facility] Health Information Management [address] [place] [address] External, Provider Social History Tobacco Use Types [...] as of this encounter Care Teams Sustainability Project Coordinator Relationship Specialty Start Date End Date Caitlyn Bowie MD [address] [address] PCP - General Internal Medicine 05/06/21 documented as of this encounter
--- OUTSIDE RECORDS SUMMARY | 2025-05-16 16:28 | XMS_ITS | Encounter Summary ---
Author Organization [facility] and [facility] Address [address] [place] [address] Care Team Providers Care Bill Adjuster Name Role Phone Caitlyn Bowie MD Primary Care Provider +1- [phone] Reason for Visit * Reason Comments Other Encounter Details Date Type Department Care Team (Late st Contact Info) Description 01/12/2021 Telephone [facility] at [address] - [address] [phone] Ronald Mills MD [address] [place] [address] Other Social History Tobacco Use Types [...] AM EDT Lab orders were faxed to [facility] @ [phone]. Patient notified by phone. * Telephone Encounter - Kathleen Nasima - 01/12/2021 8:46 AM EDT Pt called looking to speak with Kirstin RE: lab orders sent to lab [facility] lab Looking to have labs [...] as of this encounter Care Teams Bill Adjuster Relationship Specialty Start Date End Date Caitlyn Bowie MD [address] [address] PCP - General Internal Medicine 05/06/21 documented as of this encounter
--- OUTSIDE RECORDS SUMMARY | 2025-05-16 16:28 | XMS_ITS | Encounter Summary ---
Author Organization [facility] and [facility] Address [address] [place] [address] Care Team Providers Care Lease Purchase Truck Driver Name Role Phone Caitlyn Bowie MD Primary Care Provider +1- [phone] Encounter Details Date Type Department Care Team (Late st Contact Info) Description 03/13/2015 Scanned Document [facility] Health Information Management [address] [place] [address] External, Provider Social History Tobacco Use Types [...] External LAB BLOOD ORDERABLES Final Res ult [facility] [place], [place], [place] * Lab Scan (02/16/2015) Blood specimen (specimen) us Provider External LAB BLOOD ORDERABLES Final Res ult Performing Organization Address City/State/[facility] Co de Phone Number [facility] documented in this encounter Visit Diagnoses Not on filedocumented in this encounter Additional Health Concerns Infection Onset Date Last Indicated Resolved Time COVID-19 03/05/2022 03/05/2022 03/15/2022 7:1 8 PM EDT documented as of this encounter Care Teams Lease Purchase Truck Driver Relationship Specialty Start Date End Date Caitlyn Bowie MD 3400 [facility] 1 [place] [address] PCP - General Internal Medicine 05/06/21 Henry Kelly MD Pulmonary Department 175 [facility], [address] [place] [address] Physician Pulmonary Disease 09/06/17 06/22/20 documented as of this encounter
--- OUTSIDE RECORDS SUMMARY | 2025-05-16 16:28 | XMS_ITS | Encounter Summary ---
Author Organization [facility] Address [address] [place] [address] Care Team Providers Care Fence Erector Supervisor Name Role Phone Caitlyn Bowie MD Primary Care Provider +1- [phone] Encounter Details Date Type Department Care Team (Late st Contact Info) Description 02/03/2021 Scanned Document INTERFACE DEFAULT [address] [place] [address] System, Provider Not In Social History Tobacco [...] as of this encounter Care Teams Fence Erector Supervisor Relationship Specialty Start Date End Date Caitlyn Bowie MD [address] [address] PCP - General Internal Medicine 05/06/21 documented as of this encounter
--- OUTSIDE RECORDS SUMMARY | 2025-05-16 16:28 | XMS_ITS | Encounter Summary ---
Author Organization [facility] and [facility] Address [address] [place] [address] Care Team Providers Care Toilet Products Molder Name Role Phone Caitlyn Bowie MD Primary Care Provider +1- [phone] Encounter Details Date Type Department Care Team (Late st Contact Info) Description 02/08/2021 Scanned Document INTERFACE DEFAULT [address] [place] [address] System, Provider Not In Social History Tobacco [...] as of this encounter Care Teams Toilet Products Molder Relationship Specialty Start Date End Date Caitlyn Bowie MD [address] [address] PCP - General Internal Medicine 05/06/21 documented as of this encounter
--- OUTSIDE RECORDS SUMMARY | 2025-05-16 16:28 | XMS_ITS | Encounter Summary ---
Author Organization [facility] and [facility] Address [address] [place] [address] Care Team Providers Care Refinery Operator Coking Name Role Phone Caitlyn Bowie MD Primary Care Provider +1- [phone] Encounter Details Date Type Department Care Team (Late st Contact Info) Description 05/01/2015 Scanned Document [facility] Health Information Management [address] [place] [address] External, Provider Social History Tobacco Use Types [...] documented as of this encounter Care Teams Refinery Operator Coking Relationship Specialty Start Date End Date Caitlyn Bowie MD 3400 [facility] 1 [place] [address] PCP - General Internal Medicine 05/06/21 Henry Kelly MD Pulmonary Department 175 [facility], [address] [place] [address] Physician Pulmonary Disease 09/06/17 06/22/20 documented as of this encounter
--- OUTSIDE RECORDS SUMMARY | 2025-05-16 16:28 | XMS_ITS | Encounter Summary ---
Author Organization [facility] and [facility] Address [address] [place] [phone] Care Team Providers Care Tube And Manifold Builder Name Role Phone Caitlyn Bowie MD Primary Care Provider +1- [phone] Encounter Details Date Type Department Care Team ([facility] st Contact Info) Description 04/28/2015 Scanned Document [facility] Health Information Management [address] [place] [address] External, Provider Social History Tobacco Use Types [...] Edited Re sult - Final [facility] [place], [place], [facility] documented in this encounter Visit Diagnoses Not on filedocumented in this encounter Additional Health Concerns Infection Onset Date Last Indicated Resolved Time COVID-19 03/05/2022 03/05/2022 03/15/2022 7:18 PM EDT documented as of this encounter Care Teams Tube And Manifold Builder Relationship Specialty Start Date End Date Caitlyn Bowie MD 3400 [facility] 1 [place] [address] PCP - General Internal Medicine 05/06/21 Henry Kelly MD Pulmonary Department [address] [place] [address], [address] [place] [address] Physician Pulmonary Disease 09/06/17 06/22/20 documented as of this encounter
--- OUTSIDE RECORDS SUMMARY | 2025-05-16 16:28 | XMS_ITS | Encounter Summary ---
Author Organization [facility] and [facility] Address [address] [place] [address] Care Team Providers Care Advanced Practice Provider Name Role Phone Caitlyn Bowie MD Primary Care Provider +1- [phone] Encounter Details Date Type Department Care Team (Late st Contact Info) Description 02/02/2021 Scanned Document [facility] Health Information Management [address] [place] [address] External, Provider Social History Tobacco Use Types [...] of this encounter Care Teams Advanced Practice Provider Relationship Specialty Start Date End Date Caitlyn Bowie MD [address] [address] PCP - General Internal Medicine 05/06/21 documented as of this encounter
--- OUTSIDE RECORDS SUMMARY | 2025-05-16 16:28 | XMS_ITS | Encounter Summary ---
Author Organization [facility] and [facility] Address [address] [place] [address] Care Team Providers Care Digital Media Strategist Name Role Phone Caitlyn Bowie MD Primary Care Provider +1- [phone] Encounter Details Date Type Department Care Team ([facility] st Contact Info) Description 11/07/2014 Scanned Document [facility] Health Information Management [address] [place] [address] External, Provider Social History Tobacco Use Types [...] of this encounter Care Teams Digital Media Strategist Relationship Specialty Start Date End Date Caitlyn Bowie MD [address] [address] PCP - General Internal Medicine 05/06/21 Henry Kelly MD Pulmonary Department 175 [facility], [address] [place] [address] Physician Pulmonary Disease 09/06/17 06/22/20 documented as of this encounter
--- OUTSIDE RECORDS SUMMARY | 2025-05-16 16:28 | XMS_ITS | Encounter Summary ---
Author Organization [facility] and [facility] Address [address] [place] [address] Care Team Providers Care Lpn Instructor Name Role Phone Caitlyn Bowie MD Primary Care Provider +1- [phone] Encounter Details Date Type Department Care Team ([facility] st Contact Info) Description 05/14/2015 Scanned Document [facility] Health Information Management [address] [place] [address] External, Provider Social History Tobacco Use Types [...] as of this encounter Care Teams Lpn Instructor Relationship Specialty Start Date End Date Caitlyn Bowie MD [address] [address] PCP - General Internal Medicine 05/06/21 Henry Kelly MD Pulmonary Department 175 [facility], [address] [place] [address] Physician Pulmonary Disease 09/06/17 06/22/20 documented as of this encounter
--- OUTSIDE RECORDS SUMMARY | 2025-05-16 16:29 | XMS_ITS | Encounter Summary ---
Author Organization [facility] and [facility] Address [address] [place] [address] Care Team Providers Care Car Inspection And Repair Manager Name Role Phone Caitlyn Bowie MD Primary Care Provider +1- [phone] Encounter Details Date Type Department Care Team (Late st Contact Info) Description 06/07/2021 Scanned Document [facility] at [address] [address] External, Provider Social History Tobacco Use Types [...] as of this encounter Care Teams Car Inspection And Repair Manager Relationship Specialty Start Date End Date Caitlyn Bowie MD [address] [address] PCP - General Internal Medicine 05/06/21 documented as of this encounter
--- OUTSIDE RECORDS SUMMARY | 2025-05-16 16:29 | XMS_ITS | Encounter Summary ---
Author Organization [facility] and [facility] Address [address] [place] [address] Care Team Providers Care Ladle Patcher Name Role Phone Caitlyn Bowie MD Primary Care Provider +1- [phone] Reason for Visit * Reason Comments Triage Encounter Details Date Type Department Care Team (Late st Contact Info) Description 10/18/2021 Telephone [facility] [address] - [address] [phone] Ronald Mills MD [address] [place] [phone] Triage Social History Tobacco Use Types [...] as of this encounter Care Teams Ladle Patcher Relationship Specialty Start Date End Date Caitlyn Bowie MD [address] [address] PCP - General Internal Medicine 05/06/21 documented as of this encounter
--- OUTSIDE RECORDS SUMMARY | 2025-05-16 16:29 | XMS_ITS | Encounter Summary ---
Author Organization [facility] and [facility] Address [address] [place] [address] Care Team Providers Care Dumpcart Driver Name Role Phone Caitlyn Bowie MD Primary Care Provider +1- [phone] Encounter Details Date Type Department Care Team (Late st Contact Info) Description 03/11/2015 Scanned Document [facility] Health Information Management [address] [place] [address] External, Provider Social History Tobacco Use Types [...] Final [facility] [place], [place], [facility] documented in this encounter Visit Diagnoses Not on filedocumented in this encounter Additional Health Concerns Infection Onset Date Last Indicated Resolved Time COVID-19 03/05/2022 03/05/2022 03/15/2022 7:18 PM EDT documented as of this encounter Care Teams Dumpcart Driver Relationship Specialty Start Date End Date Caitlyn Bowie MD 3400 [facility] 1 [place] [address] PCP - General Internal Medicine 05/06/21 Henry Kelly MD Pulmonary Department [address] [place] [address], [address] [place] [address] Physician Pulmonary Disease 09/06/17 06/22/20 documented as of this encounter
--- OUTSIDE RECORDS SUMMARY | 2025-05-16 16:29 | XMS_ITS | Encounter Summary ---
Author Organization [facility] Address [address] [place] [address] Care Team Providers Care Mixer Attendant Name Role Phone Caitlyn Bowie MD Primary Care Provider +1- [phone] Encounter Details Date Type Department Care Team ([facility] st Contact Info) Description 04/16/2018 Scanned Document [facility] Health Information Management [address] [place] [phone] External, Provider Social History Tobacco Use Types [...] documented as of this encounter Care Teams Mixer Attendant Relationship Specialty Start Date End Date Caitlyn Bowie MD [address] [address] PCP - General Internal Medicine 05/06/21 Henry Kelly MD Pulmonary Department 175 [facility], [address] [place] [address] Physician Pulmonary Disease 09/06/17 06/22/20 documented as of this encounter
--- OUTSIDE RECORDS SUMMARY | 2025-05-16 16:29 | XMS_ITS | Encounter Summary ---
Author Organization [facility] Address [address] [place] [address] Care Team Providers Care Auto Damage Adjuster Name Role Phone Caitlyn Bowie MD Primary Care Provider +1- [phone] Encounter Details Date Type Department Care Team ([facility] st Contact Info) Description 04/29/2021 Scanned Document INTERFACE DEFAULT [address] [place] [address] System, Provider Not In Social History Tobacco [...] as of this encounter Care Teams Auto Damage Adjuster Relationship Specialty Start Date End Date Caitlyn Bowie MD [address] [address] PCP - General Internal Medicine 05/06/21 documented as of this encounter
--- OUTSIDE RECORDS SUMMARY | 2025-05-16 16:29 | XMS_ITS | Encounter Summary ---
Author Organization [facility] and [facility] Address [address] [place] [address] Care Team Providers Care Microsoft Dynamics Ax Consultant Name Role Phone Caitlyn Bowie MD Primary Care Provider +1- [phone] Encounter Details Date Type Department Care Team ([facility] st Contact Info) Description 10/29/2021 Scanned Document [facility] Health Information Management [address] [place] [address] External, Provider Social History Tobacco Use Types [...] of this encounter Care Teams Microsoft Dynamics Ax Consultant Relationship Specialty Start Date End Date Caitlyn Bowie MD [address] [address] PCP - General Internal Medicine 05/06/21 documented as of this encounter
--- OUTSIDE RECORDS SUMMARY | 2025-05-16 16:29 | XMS_ITS | Encounter Summary ---
Author Organization [facility] and [facility] Address [address] [place] [address] Care Team Providers Care Music Ministries Director Name Role Phone Caitlyn Bowie MD Primary Care Provider +1- [phone] Encounter Details Date Type Department Care Team (Late st Contact Info) Description 11/18/2021 Scanned Document INTERFACE DEFAULT [address] [place] [phone] System, Provider Not In Social History Tobacco [...] as of this encounter Care Teams Music Ministries Director Relationship Specialty Start Date End Date Caitlyn Bowie MD [address] [address] PCP - General Internal Medicine 05/06/21 documented as of this encounter
--- OUTSIDE RECORDS SUMMARY | 2025-05-16 16:29 | XMS_ITS | Encounter Summary ---
Author Organization [facility] and [facility] Address [address] [place] [address] Care Team Providers Care Compressed Air Pile Driver Operator Name Role Phone Caitlyn Bowie MD Primary Care Provider +1- [phone] Encounter Details Date Type Department Care Team ([facility] st Contact Info) Description 10/08/2021 Scanned Document INTERFACE DEFAULT [address] [place] [address] System, Provider Not In Social History Tobacco [...] as of this encounter Care Teams Compressed Air Pile Driver Operator Relationship Specialty Start Date End Date Caitlyn Bowie MD [address] [address] PCP - General Internal Medicine 05/06/21 documented as of this encounter
--- OUTSIDE RECORDS SUMMARY | 2025-05-16 16:29 | XMS_ITS | Encounter Summary ---
Author Organization [facility] and [facility] Address [address] [place] [address] Care Team Providers Care Strategic Consultant Name Role Phone Caitlyn Bowie MD Primary Care Provider +1- [phone] Encounter Details Date Type Department Care Team ([facility] st Contact Info) Description 07/26/2018 Scanned Document [facility] Health Information Management [address] [place] [address] External, Provider Social History Tobacco Use Types [...] as of this encounter Care Teams Strategic Consultant Relationship Specialty Start Date End Date Caitlyn Bowie MD 3400 [facility] 1 [place] [address] PCP - General Internal Medicine 05/06/21 Henry Kelly MD Pulmonary Department 175 [facility], [address] [place] [address] Physician Pulmonary Disease 09/06/17 06/22/20 documented as of this encounter
--- OUTSIDE RECORDS SUMMARY | 2025-05-16 16:29 | XMS_ITS | Encounter Summary ---
Author Organization [facility] Address [address] [place] [address] Care Team Providers Care Speech Correction Consultant Name Role Phone Caitlyn Bowie MD Primary Care Provider +1- [phone] Encounter Details Date Type Department Care Team (Late st Contact Info) Description 05/17/2021 Scanned Document [facility] at [address] [address] External, Provider Social History Tobacco Use Types [...] of this encounter Care Teams Speech Correction Consultant Relationship Specialty Start Date End Date Caitlyn Bowie MD [address] [address] PCP - General Internal Medicine 05/06/21 documented as of this encounter
--- OUTSIDE RECORDS SUMMARY | 2025-05-16 16:29 | XMS_ITS | Encounter Summary ---
Author Organization [facility] Address [address] [place] [address] Care Team Providers Care Customs Guard Name Role Phone Caitlyn Bowie MD Primary Care Provider +1- [phone] Encounter Details Date Type Department Care Team (Late st Contact Info) Description 05/27/2021 Telephone [facility] at [address] [address] Ronald Mills MD [address] [place] [phone] Social History Tobacco Use Types Packs/Day [...] as of this encounter Care Teams Customs Guard Relationship Specialty Start Date End Date Caitlyn Bowie MD [address] [address] PCP - General Internal Medicine 05/06/21 documented as of this encounter
--- OUTSIDE RECORDS SUMMARY | 2025-05-16 16:29 | XMS_ITS | Encounter Summary ---
Author Organization [facility] Address [address] [place] [address] Care Team Providers Care Cupola Tender Name Role Phone Caitlyn Bowie MD Primary Care Provider +1- [phone] Encounter Details Date Type Department Care Team (Late st Contact Info) Description 11/18/2021 Scanned Document [facility] Health Information Management [address] [place] [address] External, Provider Social History Tobacco Use Types [...] as of this encounter Care Teams Cupola Tender Relationship Specialty Start Date End Date Caitlyn Bowie MD [address] [address] PCP - General Internal Medicine 05/06/21 documented as of this encounter
--- OUTSIDE RECORDS SUMMARY | 2025-05-16 16:29 | XMS_ITS | Encounter Summary ---
Author Organization [facility] Address [address] [place] [address] Care Team Providers Care Locket Maker Name Role Phone Caitlyn Bowie MD Primary Care Provider +1- [phone] Encounter Details Date Type Department Care Team ([facility] st Contact Info) Description 04/27/2021 Scanned Document INTERFACE DEFAULT [address] [place] [address] System, Provider Not In Social History Tobacco [...] Date Caitlyn Bowie MD [facility] [address] [address] PCP - General Internal Medicine 05/06/21 documented as of this encounter
--- OUTSIDE RECORDS SUMMARY | 2025-05-16 16:29 | XMS_ITS | Encounter Summary ---
Author Organization [facility] and [facility] Address [address] [place] [address] Care Team Providers Care Collar Separator Name Role Phone Caitlyn Bowie MD Primary Care Provider +1- [phone] Encounter Details Date Type Department Care Team ([facility] st Contact Info) Description 03/14/2018 Scanned Document [facility] Health Information Management [address] [place] [address] External, Provider Social History Tobacco Use Types [...] as of this encounter Care Teams Collar Separator Relationship Specialty Start Date End Date Caitlyn Bowie MD 3400 [facility] 1 [place] [address] PCP - General Internal Medicine 05/06/21 Henry Kelly MD Pulmonary Department 175 [facility], [address] [place] [address] Physician Pulmonary Disease 09/06/17 06/22/20 documented as of this encounter
--- OUTSIDE RECORDS SUMMARY | 2025-05-16 16:29 | XMS_ITS | Encounter Summary ---
Author Organization [facility] Address [address] [place] [address] Care Team Providers Care Brake Lining Driller Name Role Phone Caitlyn Bowie MD Primary Care Provider +1- [phone] Encounter Details Date Type Department Care Team (Late st Contact Info) Description 06/07/2021 Scanned Document [facility] at [address] [place] [address] Norma Renee MD [address] [place] [address] 2 [place] [phone] Social History Tobacco Use Types Packs/Day Years [...] as of this encounter Care Teams Brake Lining Driller Relationship Specialty Start Date End Date Caitlyn Bowie MD [address] [address] PCP - General Internal Medicine 05/06/21 documented as of this encounter
--- OUTSIDE RECORDS SUMMARY | 2025-05-16 16:29 | XMS_ITS | Encounter Summary ---
Author Organization [facility] and [facility] Address [address] [place] [address] Care Team Providers Care Emergency Vehicle Technician Name Role Phone Caitlyn Bowie MD Primary Care Provider +1- [phone] Encounter Details Date Type Department Care Team (Late st Contact Info) Description 12/28/2021 Scanned Document INTERFACE DEFAULT [address] [place] [address] System, Provider Not In Social History Tobacco [...] as of this encounter Care Teams Emergency Vehicle Technician Relationship Specialty Start Date End Date Caitlyn Bowie MD [address] [address] PCP - General Internal Medicine 05/06/21 documented as of this encounter
--- OUTSIDE RECORDS SUMMARY | 2025-05-16 16:29 | XMS_ITS | Encounter Summary ---
Author Organization [facility] and [facility] Address [address] [place] [address] Care Team Providers Care Budget Officer Name Role Phone Caitlyn Bowie MD Primary Care Provider +1- [phone] Encounter Details Date Type Department Care Team (Late st Contact Info) Description 11/19/2021 Scanned Document [facility] at [address] [place] [address] Norma Renee MD [address] [place] [phone] Social History Tobacco Use Types Packs/Day [...] documented as of this encounter Care Teams Budget Officer Relationship Specialty Start Date End Date Caitlyn Bowie MD [address] [address] PCP - General Internal Medicine 05/06/21 documented as of this encounter
--- OUTSIDE RECORDS SUMMARY | 2025-05-16 16:29 | XMS_ITS | Encounter Summary ---
Author Organization [facility] and [facility] Address [address] [place] [address] Care Team Providers Care Fleece Tier Name Role Phone Caitlyn Bowie MD Primary Care Provider +1- [phone] Reason for Visit * Reason Comments Advice Only Encounter Details Date Type Department Care Team ([facility] st Contact Info) Description 06/01/2021 Telephone [facility] at [address] [phone] Ronald Mills MD [address] [place] [phone] Advice Only Social History Tobacco Use [...] added that she's called before and sent [employer] messages but hasn't received a reply,[phone]. documented in this encounter Plan of Treatment Not on file documented as of this encounter Visit Diagnoses Not on filedocumented in this encounter Additional Health Concerns Infection Onset Date Last Indicated Resolved Time COVID-19 03/05/2022 03/05/2022 03/15/2022 7:18 PM EDT Assessment Noted Time PHQ-9 Depression Total Score: 2 11/07/19 19 2:06 PM EDT documented as of this encounter Care Teams Fleece Tier Relationship Specialty Start Date End Date Caitlyn Bowie MD [facility] [address] [address] PCP - General Internal Medicine 05/06/21 documented as of this encounter
--- OUTSIDE RECORDS SUMMARY | 2025-05-16 16:29 | XMS_ITS | Encounter Summary ---
Author Organization [facility] and [facility] Address [address] [place] [address] Care Team Providers Care Customer Success Intern Name Role Phone Caitlyn Bowie MD Primary Care Provider +1- [phone] Encounter Details Date Type Department Care Team ([facility] st Contact Info) Description 05/05/2021 Scanned Document INTERFACE DEFAULT [address] [place] [address] System, Provider Not In Social History Tobacco [...] End Date Caitlyn Bowie MD [address] [address] PCP - General Internal Medicine 05/06/21 documented as of this encounter
--- OUTSIDE RECORDS SUMMARY | 2025-05-16 16:29 | XMS_ITS | Encounter Summary ---
Author Organization [facility] Address [address] [place] [address] Care Team Providers Care Product Mgr Name Role Phone Caitlyn Bowie MD Primary Care Provider +1- [phone] Encounter Details Date Type Department Care Team ([facility] st Contact Info) Description 10/15/[address] [facility] Health Information Management [address] [place] [address] External, Provider Social History Tobacco Use Types [...] as of this encounter Care Teams Product Mgr Relationship Specialty Start Date End Date Caitlyn Bowie MD [address] [address] PCP - General Internal Medicine 05/06/21 Henry Kelly MD Pulmonary Department 175 [facility], [address] [place] [address] Physician Pulmonary Disease 09/06/17 06/22/20 documented as of this encounter
--- OUTSIDE RECORDS SUMMARY | 2025-05-16 16:29 | XMS_ITS | Encounter Summary ---
Author Organization [facility] Address [address] [place] [address] Care Team Providers Care Nurse General Duty Name Role Phone Caitlyn Bowie MD Primary Care Provider +1- [phone] Encounter Details Date Type Department Care Team ([facility] st Contact Info) Description 04/18/2018 Scanned Document [facility] Health Information Management [address] [place] [address] External, Provider Social History Tobacco Use Types [...] as of this encounter Care Teams Nurse General Duty Relationship Specialty Start Date End Date Caitlyn Bowie MD 3400 [facility] 1 [place] [address] PCP - General Internal Medicine 05/06/21 Henry Kelly MD Pulmonary Department 175 [facility], [address] [place] [address] Physician Pulmonary Disease 09/06/17 06/22/20 documented as of this encounter
--- OUTSIDE RECORDS SUMMARY | 2025-05-16 16:29 | XMS_ITS | Encounter Summary ---
Author Organization [facility] and [facility] Address [address] [place] [address] Care Team Providers Care Top Lifter Name Role Phone Caitlyn Bowie MD Primary Care Provider +1- [phone] Encounter Details Date Type Department Care Team ([facility] st Contact Info) Description 08/07/2018 Scanned Document [facility] Health Information Management [address] [place] [phone] External, Provider Social History Tobacco Use Types [...] as of this encounter Care Teams Top Lifter Relationship Specialty Start Date End Date Caitlyn Bowie MD [address] [phone] PCP - General Internal Medicine 05/06/21 Henry Kelly MD Pulmonary Department 175 [facility], [address] [place] [address] Physician Pulmonary Disease 09/06/17 06/22/20 documented as of this encounter
--- OUTSIDE RECORDS SUMMARY | 2025-05-16 16:29 | XMS_ITS | Encounter Summary ---
Author Organization [facility] Address [address] [place] [address] Care Team Providers Care Information Security Engineer Name Role Phone Caitlyn Bowie MD Primary Care Provider +1- [phone] Encounter Details Date Type Department Care Team ([facility] st Contact Info) Description 09/24/2021 Scanned Document INTERFACE DEFAULT [address] [place] [phone] System, Provider Not In Social History Tobacco [...] of this encounter Care Teams Information Security Engineer Relationship Specialty Start Date End Date Caitlyn Bowie MD [address] [address] PCP - General Internal Medicine 05/06/21 documented as of this encounter
--- OUTSIDE RECORDS SUMMARY | 2025-05-16 16:29 | XMS_ITS | Encounter Summary ---
Author Organization [facility] Address [address] [place] [address] Care Team Providers Care Fretted Instruments Inspector Name Role Phone Caitlyn Bowie MD Primary Care Provider +1- [phone] Encounter Details Date Type Department Care Team ([facility] st Contact Info) Description 04/28/2021 Scanned Document INTERFACE DEFAULT [address] [place] [address] System, Provider Not In Social History Tobacco [...] documented as of this encounter Care Teams Fretted Instruments Inspector Relationship Specialty Start Date End Date Caitlyn Bowie MD [address] [address] PCP - General Internal Medicine 05/06/21 documented as of this encounter
--- OUTSIDE RECORDS SUMMARY | 2025-05-16 16:29 | XMS_ITS | Encounter Summary ---
Author Organization [facility] and [facility] Address [address] [place] [phone] Care Team Providers Care Rail Car Repair Carman Name Role Phone Caitlyn Bowie MD Primary Care Provider +1- [phone] Encounter Details Date Type Department Care Team (Late st Contact Info) Description 07/30/2018 Scanned Document [facility] Health Information Management [address] [place] [phone] External, Provider Social History Tobacco Use Types [...] documented as of this encounter Care Teams Rail Car Repair Carman Relationship Specialty Start Date End Date Caitlyn Bowie MD 3400 [facility] 1 [place] [address] PCP - General Internal Medicine 05/06/21 Henry Kelly MD Pulmonary Department [address] [place] [address], [address] [place] [address] Physician Pulmonary Disease 09/06/17 06/22/20 documented as of this encounter
--- OUTSIDE RECORDS SUMMARY | 2025-05-16 16:29 | XMS_ITS | Encounter Summary ---
Author Organization [facility] and [facility] Address [address] [place] [address] Care Team Providers Care Lockstitch Front Edge Tape Sewer Name Role Phone Caitlyn Bowie MD Primary Care Provider +1- [phone] Encounter Details Date Type Department Care Team (Late st Contact Info) Description 12/04/2014 Scanned Document [facility] Health Information Management [address] [place] [phone] External, Provider Social History Tobacco Use Types [...] BLOOD ORDERABLES Final Res ult [facility] [place], [place], [facility] documented in this encounter Visit Diagnoses Not on filedocumented in this encounter Additional Health Concerns Infection Onset Date Last Indicated Resolved Time COVID-19 03/05/2022 03/05/2022 03/15/2022 7:18 PM EDT documented as of this encounter Care Teams Lockstitch Front Edge Tape Sewer Relationship Specialty Start Date End Date Caitlyn Bowie MD 3400 [facility] 1 [place] [address] PCP - General Internal Medicine 05/06/21 Henry Kelly MD Pulmonary Department 175 [facility], [address] [place] [address] Physician Pulmonary Disease 09/06/17 06/22/20 documented as of this encounter
--- OUTSIDE RECORDS SUMMARY | 2025-05-16 16:29 | XMS_ITS | Encounter Summary ---
Author Organization [facility] and [facility] Address [address] [place] [address] Care Team Providers Care Fruit Shipper Name Role Phone Caitlyn Bowie MD Primary Care Provider +1- [phone] Encounter Details Date Type Department Care Team (Late st Contact Info) Description 02/19/2015 Scanned Document [facility] Health Information Management [address] [place] [phone] External, Provider Social History Tobacco Use Types [...] ult [facility] [place], [place], [facility] documented in this encounter Visit Diagnoses Not on filedocumented in this encounter Additional Health Concerns Infection Onset Date Last Indicated Resolved Time COVID-19 03/05/2022 03/05/2022 03/15/2022 7:18 PM EDT documented as of this encounter Care Teams Fruit Shipper Relationship Specialty Start Date End Date Caitlyn Bowie MD 3400 [facility] 1 [place] [address] PCP - General Internal Medicine 05/06/21 Henry Kelly MD Pulmonary Department 175 [facility], [address] [place] [address] Physician Pulmonary Disease 09/06/17 06/22/20 documented as of this encounter
--- OUTSIDE RECORDS SUMMARY | 2025-05-16 16:29 | XMS_ITS | Encounter Summary ---
Author Organization [facility] and [facility] Address [address] [place] [address] Care Team Providers Care Sleeping Room Cleaner Name Role Phone Caitlyn Bwoie MD Primary Care Provider +1- [phone] Encounter Details Date Type Department Care Team ([facility] st Contact Info) Description 04/24/2021 Scanned Document INTERFACE DEFAULT [address] [place] [phone] System, Provider Not In Social History Tobacco [...] documented as of this encounter Care Teams Sleeping Room Cleaner Relationship Specialty Start Date End Date Caitlyn Bowie MD [address] [address] PCP - General Internal Medicine 05/06/21 documented as of this encounter
--- OUTSIDE RECORDS SUMMARY | 2025-05-16 16:29 | XMS_ITS | Encounter Summary ---
Author Organization [facility] Address [address] [place] [address] Care Team Providers Care Environmental Science Program Director Name Role Phone Caitlyn Bowie MD Primary Care Provider +1- [phone] Encounter Details Date Type Department Care Team ([facility] st Contact Info) Description 06/26/2018 Scanned Document [facility] Health Information Management [address] [place] [phone] External, Provider Social History Tobacco Use Types [...] as of this encounter Care Teams Environmental Science Program Director Relationship Specialty Start Date End Date Caitlyn Bowie MD [address] [address] PCP - General Internal Medicine 05/06/21 Henry Kelly MD Pulmonary Department 175 [facility], [address] [place] [address] Physician Pulmonary Disease 09/06/17 06/22/20 documented as of this encounter
--- OUTSIDE RECORDS SUMMARY | 2025-05-16 16:29 | XMS_ITS | Encounter Summary ---
Author Organization [facility] and [facility] Address [address] [place] [phone] Care Team Providers Care Decontamination Technician Name Role Phone Caitlyn Bowie MD Primary Care Provider +1- [phone] Encounter Details Date Type Department Care Team (Late st Contact Info) Description 06/07/2021 Scanned Document [facility] [address] [place] [address] Noram Renee MD [address] [place] [address] 2 [place] [phone] Social History Tobacco Use Types Packs/Day Years [...] documented as of this encounter Care Teams Decontamination Technician Relationship Specialty Start Date End Date Caitlyn Bowie MD [address] [address] PCP - General Internal Medicine 05/06/21 documented as of this encounter
--- OUTSIDE RECORDS SUMMARY | 2025-05-16 16:29 | XMS_ITS | Encounter Summary ---
Author Organization [facility] Address [address] [place] [phone] Care Team Providers Care Undergraduate Advisor Name Role Phone Caitlyn Bowie MD Primary Care Provider +1- [phone] Encounter Details Date Type Department Care Team ([facility] st Contact Info) Description 04/26/2021 Scanned Document INTERFACE DEFAULT [address] [place] [address] System, Provider Not In Social History Tobacco [...] documented as of this encounter Care Teams Undergraduate Advisor Relationship Specialty Start Date End Date Caitlyn Bowie MD [address] [address] PCP - General Internal Medicine 05/06/21 documented as of this encounter
--- OUTSIDE RECORDS SUMMARY | 2025-05-16 16:29 | XMS_ITS | Encounter Summary ---
Author Organization [facility] and [facility] Address [address] [place] [address] Care Team Providers Care Hydraulic Press Operator Name Role Phone Caitlyn Bowie MD Primary Care Provider +1- [phone] Encounter Details Date Type Department Care Team ([facility] st Contact Info) Description 04/25/2021 Scanned Document INTERFACE DEFAULT [address] [place] [phone] System, Provider Not In Social History Tobacco [...] as of this encounter Care Teams Hydraulic Press Operator Relationship Specialty Start Date End Date Caitlyn Bowie MD [address] [address] PCP - General Internal Medicine 05/06/21 documented as of this encounter
--- OUTSIDE RECORDS SUMMARY | 2025-05-16 16:29 | XMS_ITS | Encounter Summary ---
Author Organization [facility] Address [address] [place] [address] Care Team Providers Care Book Jacket Cover Machine Operator Name Role Phone Caitlyn Bowie MD Primary Care Provider +1- [phone] Encounter Details Date Type Department Care Team (Late st Contact Info) Description 07/28/2018 Scanned Document [facility] Health Information Management [address] [place] [phone] External, Provider Social History Tobacco Use Types [...] Bowie MD 3400 [facility] 1 [place] [address] PCP - General Internal Medicine 05/06/21 Henry Kelly MD Pulmonary Department [address] [place] [address], [address] [place] [address] Physician Pulmonary Disease 09/06/17 06/22/20 documented as of this encounter
--- OUTSIDE RECORDS SUMMARY | 2025-05-16 16:29 | XMS_ITS | Clinical Summary ---
Author Organization [facility] Address [address] [place] [address] Care Team Providers Care Sales And Operations Trainee Name Role Phone Caitlyn Bowie MD Primary Care Provider +1- [phone] Allergies Active Allergy Reactions Criticality Noted Date [...] Breath High 05/09/2008 Bronchospasm or Wheezing Ipratropium [place] Unknown/Patient and Family Unable to Define Medium [...] 1 capsule by mouth daily. Active B Qguuxnu-D-Dfxcq Acid (STRESS 500 B-COMPLEX PO) Take 1 [...] Department Care Team Description 03/14/2025 Scanned Document [facility] Neurology Ophthalmology [address] [address] Shirley Chaidez PA-C from Last 3 Months Family History Medical [...] , 05/13/2022, Additional history exists COVID-19 Vaccine ( season) 2025 09/03/2020, 08/06/2020 Hepatitis B Vaccines Aged Out No long er eligible based on patient's age to complete this topic Insurance MEDICARE PART A & B MEDICARE PART A & B [facility] Care Teams Sales And Operations Trainee Relationship Specialty Start Date End Date Caitlyn Bowie MD [address]00 [place] [address] PCP - General Internal Medicine 03/20/23
--- OUTSIDE RECORDS SUMMARY | 2025-05-16 16:29 | XMS_ITS | Encounter Summary ---
Author Organization [facility] and [facility] Address [address] [place] [phone] Care Team Providers Care Splicing Machine Operator Automatic Name Role Phone Caitlyn Bowie MD Primary Care Provider +1- [phone] Encounter Details Date Type Department Care Team (Late st Contact Info) Description 04/03/2018 Scanned Document [facility] [address] [place] [address] Provider, Historical . Social History Tobacco Use [...] documented as of this encounter Care Teams Splicing Machine Operator Automatic Relationship Specialty Start Date End Date Caitlyn Bowie MD 3400 [facility] 1 [place] [address] PCP - General Internal Medicine 05/06/21 Henry Kelly MD Pulmonary Department 175 [facility], [address] [place] [address] Physician Pulmonary Disease 09/06/17 06/22/20 documented as of this encounter
--- OUTSIDE RECORDS SUMMARY | 2025-05-16 16:29 | XMS_ITS | Encounter Summary ---
Author Organization [facility] and [facility] Address [address] [place] [address] Care Team Providers Care Biodiesel Production Technician Name Role Phone Caitlyn Bowie MD Primary Care Provider +1- [phone] Encounter Details Date Type Department Care Team (Late st Contact Info) Description 03/26/2015 Scanned Document Cardiovascular Medicine at [address] [place], [place] [address] Norma Renee MD [address] [place] [phone] Social History Tobacco Use Types Packs/Day [...] as of this encounter Care Teams Biodiesel Production Technician Relationship Specialty Start Date End Date Caitlyn Bowie MD [address] [address] PCP - General Internal Medicine 05/06/21 Henry Kelly MD Pulmonary Department [address] [place] [address], [address] [place] [address] Physician Pulmonary Disease 09/06/17 06/22/20 documented as of this encounter
--- OUTSIDE RECORDS SUMMARY | 2025-05-16 16:29 | XMS_ITS | Encounter Summary ---
Author Organization [facility] and [facility] Address [address] [place] [address] Care Team Providers Care Windscreen Fitter Name Role Phone Caitlyn Bowie MD Primary Care Provider +1- [phone] Encounter Details Date Type Department Care Team (Late st Contact Info) Description 09/23/2021 Scanned Document INTERFACE DEFAULT [address] [place] [phone] System, Provider Not In Social History Tobacco [...] documented as of this encounter Care Teams Windscreen Fitter Relationship Specialty Start Date End Date Caitlyn Bowie MD [address] [address] PCP - General Internal Medicine 05/06/21 documented as of this encounter
--- OUTSIDE RECORDS SUMMARY | 2025-05-16 16:29 | XMS_ITS | Encounter Summary ---
Author Organization [facility] Address [address] [place] [address] Care Team Providers Care Bag Checker Name Role Phone Caitlyn Bowie MD Primary Care Provider +1- [phone] Encounter Details Date Type Department Care Team ([facility] st Contact Info) Description 06/08/2021 Scanned Document INTERFACE DEFAULT [address] [place] [address] System, Provider Not In Social History Tobacco [...] as of this encounter Care Teams Bag Checker Relationship Specialty Start Date End Date Caitlyn Bowie MD [address] [address] PCP - General Internal Medicine 05/06/21 documented as of this encounter
--- OUTSIDE RECORDS SUMMARY | 2025-05-16 16:30 | XMS_ITS | Encounter Summary ---
Author Organization [facility] and [facility] Address [address] [place] [address] Care Team Providers Care Optical Engineering Technician Name Role Phone Caitlyn Bowie MD Primary Care Provider +1- [phone] Encounter Details Date Type Department Care Team (Late st Contact Info) Description 07/08/2022 Scanned Document Cardiovascular Medicine at 175 [facility] 175 [facility] THIRD FLOOR [place], [place] [address] Norma Renee MD [address] [place] [phone] Social History Tobacco Use Types Packs/Day Years [...] End Date Caitlyn Bowie MD [address] [address] PCP - General Internal Medicine 05/06/21 documented as of this encounter
--- OUTSIDE RECORDS SUMMARY | 2025-05-16 16:30 | XMS_ITS | Data Portability ---
Author Organization [place] [facility] Address [address] [place] [address] Care Team Providers Care Cnc Machine Operator Name Role Phone DEVENDRA EVELIN Primary Care Provider [phone] SHANTI YBARRA OTHER Assessment Encounter Date Assessment [...] 911 activated Plan/Discussion: EMS handoff given to [facility] In order to obtain further information and compare any laboratory results/values, I have accessed old patient records. This information was pertinent in my medical decision making today. [email or web address] Not available 03/14/2021 13:20:46 07/18/2021 07/18/2021 Overview/History [...] I have accessed patient records on the [facility] [employer] and old patient records. This [...] after care of this patient according to [facility] infection prevention protocols. Time On Scene [...] noting blood on her pillow approximately 3 chipewwa when she woke this morning. She has [...] of this patient according to [facility]'s infection prevention protocols. [email or web address] Not available 12/29/2021 14:43:37 Plan of Treatment Reminders Order Date Submit Date Provider Last Modified By Organization Details Last Modified Time Details Appointments None recorded. Lab None recorded. Referral None recorded. Procedures None recorded. Surgeries None recorded. Imaging None recorded. Medication Orders docusate sodium 100 mg capsule 2021 022 lnovia [facility], [address] [facility], [place], [address], 19:28:14 Patient TargetsNo targets recorded. Patient Instructions Encounter Date Encounter Id Patient Instructions Last Modified By Organization Details Last Modified Time 03/14/2021 [id number] Thank you for yo ur visit with [facility] today. You were seen today for abdominal [...] in your condition between 8am-10pm, please call [facility] at [phone] to help navigate your care. [email or web address] Not available 03/14/2021 12:46:32 10/18/2021 [id number] It was great to see you today! Thank you for letting [employer] [facility] assist you in your medical needs today. [...] follow up with your PCP please contact [facility] for re-evaluation. Please present to [...] 1.2 0.9-1. 2 Not Available [facility] [address] [facility], [place], [address], 02/11/2021 16:58:14 02/12/20 21 02/11/2021 , sylvia vance lower extre mity No observ ation record ed. [address] (Imaging) [address] [place], [address], 02/12/2021 08:19:41 Result Notes None recorded. Problems Name Problem SNOMED Code Status Onset Date Resolution Date Notes Provider Name and Address Organization Details Recorded Time Chronic obstructive pulmonary disease 95210258 Active 2018 ARCELIA PATELALON WINSTON [address], [facility] [place], [address], [place] [facility] 9 12:59:21 Problem Notes None recorded. Procedures Surgical History Date Name Laterality Status Provider Name and Address Organization Details Recorded Time Total Hysterectomy completed Cristine Sidhu, ALON [address], [place], [address], [place] [facility] 10/18/2021 19:39:45 lobectomy of lung completed Cristine frazier, [employer]CTION[employer]ST [address], [place], [address], [place] [facility] 10/18/2021 19:40:05 Remove tonsils and adenoids completed Cristine Sidhu, ALON [address], [place], [address], [place] [facility] 10/18/2021 19:40:22 Imaging Results None recorded. Procedure Notes None recorded. Medical Equipment None Reported. Allergies Allergen ID Allergen Name Allergen Category Reaction Reaction Severity Criticality Documentation Date Start Date Code Code System Note Provider Name and Address Organization Details Recorded Time 87614 Product containin g penicilli n (product) medicatio n Not available Not available Not available 06/15/2019 06780 8001 SNOMED ARCELIA AMANDAALON WINSTON [address], [facility] [place], [address], [place] [facility] 9 12:56:48 68330 Substance with sulfonami de structure and antibacte rial mechanism of action (substanc e) medicatio n Not available Not available Not available 06/15/2019 04263 8003 SNOMED ARCELIA AMANDAALON WINSTON [address], [facility] [place], [address], [place] [facility] 9 12:56:54 46790 Voltaren medicatio n Not available Not available Not available 06/15/201999392 6 RxNorm ARCELIA FAJARDO , [employer] [address], [place], [address], [place] [facility] 9 12:57:01 69780 Iodinated contrast media (substanc e) medicatio n Not available Not available Not available 06/15/2019 16630 2004 SNOMED ARCELIA FAJARDO , [employer] [address], [place], [address], [place] [facility] 9 12:57:07 78217 vancomyci n medicatio n Not available Not available Not available 06/15/2019 96653 RxNorm ARCELIA FAJARDO , [employer] [address], [place], [address], [place] [facility] 9 12:57:14 52877 gentamici n medicatio n Not available Not available Not available 06/15/2019 78023 50 RxNorm ARCELIA FAJARDO , [employer]ST [address], [place], [address], [place] [facility] 9 12:57:20 96511 Biaxin medicatio n Not available Not available Not available 06/15/201921080 9 RxNorm ARCELIA FAJARDO , [employer] [address], [place], [address], [place] [facility] 9 12:57:27 83503 Avelox medicatio n Not available Not available Not available 06/15/2019 63748 6 RxNorm ARCELIA FAJARDO , [employer] [address], [place], [address], [place] [facility] 9 12:57:34 26635 erythromy jaylon medicatio n Not available Not available Not available 06/15/2019 4053 RxNorm ARCELIA FAJARDO , [employer] [address], [place], [address], [place] [facility] 9 12:57:41 86844 Zithromax medicatio n Not available Not available Not available 06/15/2019 77097 4 RxNorm ARCELIA FAJARDO , [employer] [address], [place], [address], [place] [facility] 9 12:57:51 16492 Levaquin medicatio n Not available Not available Not available 06/15/2019 93026 2 RxNorm ARCELIA FAJARDO , [employer] [address], [place], [address], [place] [facility] 9 12:58:02 82990 Cipro medicatio n Not available Not available Not available 06/15/2019 75517 3 RxNorm ARCELIA FAJARDO , [employer] [address], [place], [address], [place] [facility] 9 12:58:08 50587 morphine medicatio n Not available Not available Not available 06/15/2019 7052 RxNorm ARCELIA FAJARDO , [employer]ST [address], [place], [address], [place] [facility] 9 12:58:20 95831 procaine hydrochlo ride medicatio n Not available Not available Not available 06/15/2019 79341 8 RxNorm ARCELIA FAJARDO , [employer]ST [address], [place], [address], [place] [facility] 9 12:58:42 28270 barium sulfate medicatio n Not available Not available Not available 06/15/2019 1331 RxNorm ARCELIA FAJARDO , [employer]ST [address], [place], [address], [place] [facility] 9 12:58:54 06313 Gastrogra fin medicatio n Not available Not available Not available 06/15/2019 14830 5 RxNorm ARCELIA FAJARDO , [employer]ST [address], [place], [address], [place] [facility] 9 12:59:01 04009 Flagyl medicatio n Not available Not available Not available 06/15/2019 00129 6 RxNorm ARCELIA FAJARDO , [employer] A[employer]LYST [address], [place], [place], [address], [place] [facility] 9 12:59:06 00285 shrimp allergeni c extract food Not available Not available Not available 06/15/2019 36161 2 RxNorm ARCELIA FAJARDO , [employer] ANALYST [address], [place], [place], [address], [place] [facility] [...] /min 98.9 [degF] 112/58 mm[Hg] Not Available [facility] 11:16:01 Date Recorded Heart rate Oxygen saturation Oxygen saturation in Arterial blood by Pulse oximetry Respiratory rate Body temperature Systolic And Diastolic Systolic And Diastolic Provider Name and Address Organization Details Last Updated DateTime 2 80 /min 96 % 96 % 18 /min 98.9 [degF] 142/66 mm[Hg] 128/60 mm[Hg] Not Available [facility] 2 20:16:17 Date Recorded Oxygen saturation Oxygen saturation in Arterial blood by Pulse oximetry Heart rate Respiratory rate Body temperature Systolic And Diastolic Provider Name and Address Organization Details Last Updated DateTime 2 96 % 96 % 77 /min 18 /min 98.6 [degF] 122/60 mm[Hg] Not Available [facility] 2 13:41:00 Date Recorded Heart rate Respiratory rate Oxygen saturation Oxygen saturation in Arterial blood by Pulse oximetry Body temperature Systolic And Diastolic Provider Name and Address Organization Details Last Updated DateTime 1 76 /min 16 /min 97 % 97 % 99 [degF] 114/62 mm[Hg] Not Available [facility] 1 12:53:01 Social History Question Answer Notes LastModified by Organizat ion Details LastModified Time Tobacco Smoking Status Never Smoker ARCELIA FAJARDO, ALON [address] [place], [address], [place] [facility] 06/15/2019 13:05:25 Do You [...] ICD10 Code Diagnosis IMO Codes Diagnosis Note [id number] ARCELIA FAJARDO NP [facility] [address] [facility] [place] [address] 06/15/2019 12:54:37 06/17/2019 13:06:33 Excoriation of skin 591692910 T14.8XXA [id number] JANIS GILBERT NP [facility] [address] [facility] [place] [address] 11/13/2019 16:03:00 11/18/2019 14:53:37 Pain in lower limb 90727616 M79.661 [id number] ARCELIA FAJARDO NP [facility] [address] [facility] [place] [address] 03/14/2020 20:02:43 03/18/2020 21:30:46 Traumatic hematoma 381672824 T14.8XXA Long-term current use of anticoagulant 776153924 Z79.01 Pain in left foot 144333 6519 76064 M79.672 [id number] EMELIA TOMPKINS [facility] [address] [facility] [place] [address] 03/20/2020 12:50:59 03/23/2020 17:54:28 Contusion of lower leg 31994776 S80.10XA Swelling of lower leg 44 5426654 R22.42 [id number] JAMES GARCIA NP [facility] [address] [place] [address] 09/29/2020 11:41:21 09/29/2020 12:38:57 Pain of intercostal space 055639848 R07.82 Exposure t o communicable disease 658327532 Z20.822 [id number] Waleska Matos NP [facility] [address] [place] [address] 02/11/2021 16:34:32 02/12/2021 11:08:44 Hematoma of lower leg 675482099 S80.11XA [id number] JAMES GARCIA NP [facility] [address] [facility] [place] [address] 03/14/2021 12:45:30 03/19/2021 14:09:43 Abdominal pain 51439915 R10.9 [id number] EMELIA Alfonso [facility] [address] [facility] [place] [address] 07/18/2021 10:56:56 07/22/2021 23:43:22 Constipation 40887069 K59.00 Left lower quadrant pain 747046754 R10.32 [id number] Cristine Sidhu NP [facility] [address] [facility] [place] [address] 10/18/2021 19:17:00 11/10/2021 16:33:03 Left sided abdominal pain 484748982 R10.9 Hematoma of lower leg 44 6694562 S80.10XA Long-term current use of anticoagulant 730943522 Z79.01 [id number] Cristine Sidhu NP [facility] [address] [facility] [place] [address] 12/29/2021 13:36:24 12/30/2021 10:20:27 Blood coagulation disorder 01620176 D68.61 D68.2 [id number] Olivia Goldberg NP [facility] [address] [facility] [place] [address] 01/18/2023 14:00:39 01/18/2023 15:01:49 Health Concerns Section Related Observation LastModified by Organization Detai ls LastModified Time None Recorded Concern Status LastModified by Organization Details LastModified Time None Recorded Advance Directives Directive Y: Payers Insurance Date Sequence Insurance Name Policy Number Policy Pettit Covered Member ID Pettit Member ID Guarantor Name 01/18/2023 2 [place] [id number] Jovana Malik [id number] Jovana Malik 10/18/2021 1 *SELF PAY* Jovana Malik [id number] Jovana Malik 10/18/2021 2 [place] Jovana Malik [id number] Jovana Steinino 01/17/2023 2 [place] [id number] Jovana Malik [id number] Jovana Malik 10/18/2021 1 [place] [facility] Jovana Malik [id number] Jovana Malik 01/18/2023 1 [place] [facility] Jovana Malik [id number] Jovana Malik Notes Date Note Type Note Provider Name and Address Organization Details Recorded Time 1 text/html General HPI Template - DHReported by Patient This is a 75-year-old female, known to [facility], who calls with concerns for severe abdominal [...] fair fluid intake. JAMES GARCIA, ALON [address], [place], [address], [place] [facility] 03/14/2021 13:21:32 2 text/html 76 YO F [...] asscociated sx's. EMELIA Ni [address], [place], [address], [place] [facility] 07/18/2021 12:04:00 2 text/html [...] evaluated. Cristine Sidhu NP [address], [place], [address], [place] [facility] 11/09/2021 02:11:05 2 text/html [...] supernatural. Cristine Sidhu NP [address], [place], [address], [place] [facility] 12/29/2021 14:43:53 3 text/html pt did not answer, visit canceled Olivia Goldberg NP [address], [place], [address], [place] [facility] 01/18/2023 19:34:36 OBGyn Episode No OBEpisode recorded.
--- OUTSIDE RECORDS SUMMARY | 2025-05-16 16:30 | XMS_ITS | Encounter Summary ---
Author Organization [facility] Address [address] [place] [address] Care Team Providers Care Hogshead Opener Name Role Phone Caitlyn Bowie MD Primary Care Provider +1- [phone] Encounter Details Date Type Department Care Team (Late st Contact Info) Description 07/28/2022 Scanned Document [facility] at [address] [place] [address] Norma Renee MD [address] [place] [address] 2 [place] [phone] Social History Tobacco Use Types Packs/Day Years [...] as of this encounter Care Teams Hogshead Opener Relationship Specialty Start Date End Date Caitlyn Bowie MD [address] [address] PCP - General Internal Medicine 05/06/21 documented as of this encounter
--- OUTSIDE RECORDS SUMMARY | 2025-05-16 16:30 | XMS_ITS | Encounter Summary ---
Author Organization [facility] and [facility] Address [address] [place] [address] Care Team Providers Care Top Former Name Role Phone Caitlyn Bowie MD Primary Care Provider +1- [phone] Encounter Details Date Type Department Care Team (Late st Contact Info) Description 06/23/2022 Scanned Document INTERFACE DEFAULT [address] [place] [address] System, Provider Not In Social History Tobacco [...] End Date Caitlyn Bowie MD [address] [address] PCP - General Internal Medicine 05/06/21 documented as of this encounter
--- OUTSIDE RECORDS SUMMARY | 2025-05-16 16:30 | XMS_ITS | Encounter Summary ---
Author Organization [facility] and [facility] Address [address] [place] [address] Care Team Providers Care Aviculturist Name Role Phone Caitlyn Bowie MD Primary Care Provider +1- [phone] Encounter Details Date Type Department Care Team ([facility] st Contact Info) Description 04/20/2023 Scanned Document INTERFACE DEFAULT [address] [place] [address] System, Provider Not In Social History Tobacco [...] documented as of this encounter Care Teams Aviculturist Relationship Specialty Start Date End Date Caitlyn Bowie MD [address] [address] PCP - General Internal Medicine 05/06/21 documented as of this encounter
--- OUTSIDE RECORDS SUMMARY | 2025-05-16 16:30 | XMS_ITS | Encounter Summary ---
Author Organization [facility] and [facility] Address [address] [place] [address] Care Team Providers Care Histological Illustrator Name Role Phone Caitlyn Bowie MD Primary Care Provider +1- [phone] Encounter Details Date Type Department Care Team (Late st Contact Info) Description 08/23/2022 Abstract [facility] at [address] [facility] [address] [facility] [address]nd [place] [address] Norma Renee MD [address] [place] [phone] Social History Tobacco Use Types Packs/Day Years [...] documented as of this encounter Care Teams Histological Illustrator Relationship Specialty Start Date End Date Caitlyn Bowie MD NPI: [id number] [place] [address] PCP - General Internal Medicine 05/06/21 documented as of this encounter
--- OUTSIDE RECORDS SUMMARY | 2025-05-16 16:30 | XMS_ITS | Encounter Summary ---
Author Organization [facility] and [facility] Address [address] [place] [address] Care Team Providers Care Police Worker Name Role Phone Caitlyn Bowie MD Primary Care Provider +1- [phone] Encounter Details Date Type Department Care Team ([facility] st Contact Info) Description 06/24/2022 Scanned Document INTERFACE DEFAULT [address] [place] [address] System, Provider Not In Social History Tobacco [...] as of this encounter Care Teams Police Worker Relationship Specialty Start Date End Date Caitlyn Bowie MD [address] [address] PCP - General Internal Medicine 05/06/21 documented as of this encounter
--- OUTSIDE RECORDS SUMMARY | 2025-05-16 16:30 | XMS_ITS | Encounter Summary ---
Author Organization [facility] and [facility] Address [address] [place] [address] Care Team Providers Care News Agent Name Role Phone Caitlyn Bowie MD Primary Care Provider +1- [phone] Reason for Visit * Reason Comments Advice Only mass Encounter Details Date Type Department Care Team (Late st Contact Info) Description 09/06/2021 Telephone [facility] at [address] [address] Ronald Mills MD [address] [place] [phone] Advice Only (mass) Social History Tobacco [...] as of this encounter Care Teams News Agent Relationship Specialty Start Date End Date Caitlyn Bowie MD [facility] [address] [address] PCP - General Internal Medicine 05/06/21 documented as of this encounter
--- OUTSIDE RECORDS SUMMARY | 2025-05-16 16:30 | XMS_ITS | Encounter Summary ---
Author Organization [facility] and [facility] Address [address] [place] [address] Care Team Providers Care Artistic Director Name Role Phone Caitlyn Bowie MD Primary Care Provider +1- [phone] Encounter Details Date Type Department Care Team ([facility] st Contact Info) Description 06/27/2022 Scanned Document INTERFACE DEFAULT [address] [place] [address] System, Provider Not In Social History Tobacco [...] documented as of this encounter Care Teams Artistic Director Relationship Specialty Start Date End Date Caitlyn Bowie MD [address] [address] PCP - General Internal Medicine 05/06/21 documented as of this encounter
--- OUTSIDE RECORDS SUMMARY | 2025-05-16 16:30 | XMS_ITS | Encounter Summary ---
Author Organization [facility] and [facility] Address [address] [place] [address] Care Team Providers Care Combatant Diver Officer Name Role Phone Caitlyn Bowie MD Primary Care Provider +1- [phone] Encounter Details Date Type Department Care Team ([facility] st Contact Info) Description 05/16/2023 Scanned Document INTERFACE DEFAULT [address] [place] [address] System, Provider Not In Social History Tobacco [...] documented as of this encounter Care Teams Combatant Diver Officer Relationship Specialty Start Date End Date Caitlyn Bowie MD [address] [address] PCP - General Internal Medicine 05/06/21 documented as of this encounter
--- OUTSIDE RECORDS SUMMARY | 2025-05-16 16:30 | XMS_ITS | Encounter Summary ---
Author Organization [facility] Address [address] [place] [address] Care Team Providers Care Plate Put In Worker Name Role Phone Caitlyn Bowie MD Primary Care Provider +1- [phone] Encounter Details Date Type Department Care Team ([facility] st Contact Info) Description 07/06/2021 Scanned Document INTERFACE DEFAULT [address] [place] [address] System, Provider Not In Social History Tobacco [...] as of this encounter Care Teams Plate Put In Worker Relationship Specialty Start Date End Date Caitlyn Bowie MD [address] [address] PCP - General Internal Medicine 05/06/21 documented as of this encounter
--- OUTSIDE RECORDS SUMMARY | 2025-05-16 16:30 | XMS_ITS | Encounter Summary ---
Author Organization [facility] Address [address] [place] [address] [address] [place] [address] Phone Care Team Providers Care Vamp Marker Name Role Phone Caitlyn Bowie MD Primary Care Provider +1- [phone] Encounter Details Date Type Department Care Team (Late st Contact Info) Description 08/30/2024 Abstract [facility] [address] [place] [address] [address] [place] [address] Adalgisa Whitney MD [address] [place] [address] [address] [place] [address] Social History Tobacco Use Types [...] as of this encounter Care Teams Vamp Marker Relationship Specialty Start Date End Date Caitlyn Bowie MD [address] [address] PCP - General Internal Medicine 05/06/21 documented as of this encounter
--- OUTSIDE RECORDS SUMMARY | 2025-05-16 16:30 | XMS_ITS | Encounter Summary ---
Author Organization [facility] and [facility] Address [address] [place] [address] Care Team Providers Care Hadoop Java Developer Name Role Phone Caitlyn Bowie MD Primary Care Provider +1- [phone] Encounter Details Date Type Department Care Team ([facility] st Contact Info) Description 07/07/2021 Scanned Document INTERFACE DEFAULT [address] [place] [address] System, Provider Not In Social History Tobacco [...] as of this encounter Care Teams Hadoop Java Developer Relationship Specialty Start Date End Date Caitlyn Bowie MD [address] [address] PCP - General Internal Medicine 05/06/21 documented as of this encounter
--- OUTSIDE RECORDS SUMMARY | 2025-05-16 16:30 | XMS_ITS | Encounter Summary ---
Author Organization [facility] and [facility] Address [address] [place] [address] Care Team Providers Care Vehicle Body Maker Name Role Phone Caitlyn Bowie MD Primary Care Provider +1- [phone] Encounter Details Date Type Department Care Team ([facility] st Contact Info) Description 07/22/2021 Scanned Document INTERFACE DEFAULT [address] [place] [address] System, Provider Not In Social History Tobacco [...] as of this encounter Care Teams Vehicle Body Maker Relationship Specialty Start Date End Date Caitlyn Bowie MD [address] [address] PCP - General Internal Medicine 05/06/21 documented as of this encounter
--- OUTSIDE RECORDS SUMMARY | 2025-05-16 16:30 | XMS_ITS | Encounter Summary ---
Author Organization [facility] and [facility] Address [address] [place] [address] Care Team Providers Care Quality Control Inspector Name Role Phone Caitlyn Bowie MD Primary Care Provider +1- [phone] Encounter Details Date Type Department Care Team ([facility] st Contact Info) Description 10/24/2022 Scanned Document INTERFACE DEFAULT [address] [place] [address] System, Provider Not In Social History Tobacco [...] of this encounter Care Teams Quality Control Inspector Relationship Specialty Start Date End Date Caitlyn Bowie MD [address] [address] PCP - General Internal Medicine 05/06/21 documented as of this encounter
--- OUTSIDE RECORDS SUMMARY | 2025-05-16 16:30 | XMS_ITS | Encounter Summary ---
Author Organization [facility] and [facility] Address [address] [place] [address] Care Team Providers Care Hoop Coiling Machine Operator Name Role Phone Caitlyn Bowie MD Primary Care Provider +1- [phone] Encounter Details Date Type Department Care Team ([facility] st Contact Info) Description 01/02/2024 Scanned Document INTERFACE DEFAULT [address] [place] [address] System, Provider Not In Social History Tobacco [...] documented as of this encounter Care Teams Hoop Coiling Machine Operator Relationship Specialty Start Date End Date Caitlyn Bowie MD [address] [address] PCP - General Internal Medicine 05/06/21 documented as of this encounter
--- OUTSIDE RECORDS SUMMARY | 2025-05-16 16:30 | XMS_ITS | Encounter Summary ---
Author Organization [facility] and [facility] Address [address] [place] [address] Care Team Providers Care Television Production Technician Name Role Phone Caitlyn Bowie MD Primary Care Provider +1- [phone] Encounter Details Date Type Department Care Team ([facility] st Contact Info) Description 05/17/2023 Scanned Document INTERFACE DEFAULT [address] [place] [address] System, Provider Not In Social History Tobacco [...] Not In System LAB BLOOD ORDERABLES Carmina mcdonald Result * LAB SCAN (05/17/2023 12:00 AM [...] as of this encounter Care Teams Television Production Technician Relationship Specialty Start Date End Date Caitlyn Bowie MD [facility] [address] [address] PCP - General Internal Medicine 05/06/21 documented as of this encounter
--- OUTSIDE RECORDS SUMMARY | 2025-05-16 16:30 | XMS_ITS | Encounter Summary ---
Author Organization [facility] and [facility] Address [address] [place] [address] Care Team Providers Care Senior Administrator Support Name Role Phone Caitlyn Bowie MD Primary Care Provider +1- [phone] Encounter Details Date Type Department Care Team (Late st Contact Info) Description 09/10/2021 Scanned Document Cardiovascular Medicine at 175 [facility] 175 [facility] THIRD FLOOR [place], [place] [address] Norma Renee MD [address] [place] [phone] Social History Tobacco Use Types Packs/Day Years [...] as of this encounter Care Teams Senior Administrator Support Relationship Specialty Start Date End Date Caitlyn Bowie MD [address] [address] PCP - General Internal Medicine 05/06/21 documented as of this encounter
--- OUTSIDE RECORDS SUMMARY | 2025-05-16 16:30 | XMS_ITS | Encounter Summary ---
Author Organization [facility] and [facility] Address [address] [place] [address] Care Team Providers Care Auto Vinyl Top Installer Name Role Phone Caitlyn Bowie MD Primary Care Provider +1- [phone] Encounter Details Date Type Department Care Team ([facility] st Contact Info) Description 06/28/2022 Scanned Document INTERFACE DEFAULT [address] [place] [address] System, Provider Not In Social History Tobacco [...] as of this encounter Care Teams Auto Vinyl Top Installer Relationship Specialty Start Date End Date Caitlyn Bowie MD [address] [address] PCP - General Internal Medicine 05/06/21 documented as of this encounter
--- OUTSIDE RECORDS SUMMARY | 2025-05-16 16:30 | XMS_ITS | Encounter Summary ---
Author Organization [facility] and [facility] Address [address] [place] [address] Care Team Providers Care Mixer Operator Name Role Phone Caitlyn Bowie MD Primary Care Provider +1- [phone] Encounter Details Date Type Department Care Team ([facility] st Contact Info) Description 09/02/2021 Scanned Document INTERFACE DEFAULT [address] [place] [address] System, Provider Not In Social History Tobacco [...] as of this encounter Care Teams Mixer Operator Relationship Specialty Start Date End Date Caitlyn Bowie MD [address] [address] PCP - General Internal Medicine 05/06/21 documented as of this encounter
--- OUTSIDE RECORDS SUMMARY | 2025-05-16 16:30 | XMS_ITS | Encounter Summary ---
Author Organization [facility] and [facility] Address [address] [place] [address] Care Team Providers Care Senior Patrol Agent Name Role Phone Caitlyn Bowie MD Primary Care Provider +1- [phone] Encounter Details Date Type Department Care Team (Late st Contact Info) Description 12/23/2022 Scanned Document INTERFACE DEFAULT [address] [place] [address] System, Provider Not In Social History Tobacco [...] as of this encounter Care Teams Senior Patrol Agent Relationship Specialty Start Date End Date Caitlyn Bowie MD [address] [address] PCP - General Internal Medicine 05/06/21 documented as of this encounter
--- OUTSIDE RECORDS SUMMARY | 2025-05-16 16:30 | XMS_ITS | Encounter Summary ---
Author Organization [facility] and [facility] Address [address] [place] [address] Care Team Providers Care Electrician Helper Automotive Name Role Phone Caitlyn Bowie MD Primary Care Provider +1- [phone] Encounter Details Date Type Department Care Team ([facility] st Contact Info) Description 09/07/2021 Scanned Document INTERFACE DEFAULT [address] [place] [address] System, Provider Not In Social History Tobacco [...] as of this encounter Care Teams Electrician Helper Automotive Relationship Specialty Start Date End Date Caitlyn Bowie MD [address] [address] PCP - General Internal Medicine 05/06/21 documented as of this encounter
--- OUTSIDE RECORDS SUMMARY | 2025-05-16 16:30 | XMS_ITS | Encounter Summary ---
Author Organization [facility] and [facility] Address [address] [place] [address] Care Team Providers Care Legislative Director Name Role Phone Caitlyn Bowie MD Primary Care Provider +1- [phone] Encounter Details Date Type Department Care Team ([facility] st Contact Info) Description 06/08/2022 Scanned Document INTERFACE DEFAULT [address] [place] [address] System, Provider Not In Social History Tobacco [...] documented as of this encounter Care Teams Legislative Director Relationship Specialty Start Date End Date Caitlyn Bowie MD [address] [address] PCP - General Internal Medicine 05/06/21 documented as of this encounter
--- OUTSIDE RECORDS SUMMARY | 2025-05-16 16:30 | XMS_ITS | Encounter Summary ---
Author Organization [facility] and [facility] Address [address] [place] [address] Care Team Providers Care Sheet Fed Printer Name Role Phone Caitlyn Bowie MD Primary Care Provider +1- [phone] Encounter Details Date Type Department Care Team ([facility] st Contact Info) Description 01/31/2023 Abstract [facility] 35 [facility] NP8 [place] [address] Shilpi Romero RN Social History Tobacco Use [...] Start Date End Date Caitlyn Bowie MD [address] [address] PCP - General Internal Medicine 05/06/21 documented as of this encounter
--- OUTSIDE RECORDS SUMMARY | 2025-05-16 16:30 | XMS_ITS | Encounter Summary ---
Author Organization [facility] and [facility] Address [address] [place] [address] Care Team Providers Care Quality Systems Engineer Name Role Phone Caitlyn Bowie MD Primary Care Provider +1- [phone] Encounter Details Date Type Department Care Team ([facility] st Contact Info) Description 06/21/2022 Scanned Document INTERFACE DEFAULT [address] [place] [address] System, Provider Not In Social History Tobacco [...] of this encounter Care Teams Quality Systems Engineer Relationship Specialty Start Date End Date Caitlyn Bowie MD [address] [address] PCP - General Internal Medicine 05/06/21 documented as of this encounter
--- OUTSIDE RECORDS SUMMARY | 2025-05-16 16:30 | XMS_ITS | Encounter Summary ---
Author Organization [facility] and [facility] Address [address] [place] [address] Care Team Providers Care Customer Trainer Name Role Phone Caitlyn Bowie MD Primary Care Provider +1- [phone] Encounter Details Date Type Department Care Team ([facility] st Contact Info) Description 04/19/2023 Scanned Document INTERFACE DEFAULT [address] [place] [address] System, Provider Not In Social History Tobacco [...] as of this encounter Care Teams Customer Trainer Relationship Specialty Start Date End Date Caitlyn Bowie MD [address] [address] PCP - General Internal Medicine 05/06/21 documented as of this encounter
--- OUTSIDE RECORDS SUMMARY | 2025-05-16 16:30 | XMS_ITS | Encounter Summary ---
Author Organization [facility] Address [address] [place] [address] Care Team Providers Care Tree Inspector Name Role Phone Pcp, No Primary Care Provider Brennan Mario MD Primary Care Provider [phone] Caitlyn Bowie MD Primary Care Provider +1- [phone] Encounter Details Date Type Department Care Team (Late st Contact Info) Description 01/04/2022 Scanned Document [facility] Neurology Ophthalmology [address] [address] Yary Whitten DO [address] [place] [address] Social History Tobacco Use Types Packs/Day [...] on filedocumented in this encounter Care Teams Tree Inspector Relationship Specialty Start Date End Date Pcp, No PCP - General General Medicine 10/04/21 07/18/22 Brennan Burnett MD [address] [place] [address] PCP - General 07/19/22 03/19/23 Caitlyn Bowie MD [address] [place] [address] PCP - General Internal Medicine 03/20/23 documented as of this encounter
--- OUTSIDE RECORDS SUMMARY | 2025-05-16 16:30 | XMS_ITS | Encounter Summary ---
Author Organization [facility] and [facility] Address [address] [place] [address] Care Team Providers Care Home Appliance Washing Machine Mechanic Name Role Phone Caitlyn Boiwe MD Primary Care Provider +1- [phone] Encounter Details Date Type Department Care Team ([facility] st Contact Info) Description 04/13/2023 Scanned Document INTERFACE DEFAULT [address] [place] [address] System, Provider Not In Social History Tobacco [...] as of this encounter Care Teams Home Appliance Washing Machine Mechanic Relationship Specialty Start Date End Date Caitlyn Bowie MD [address] [address] PCP - General Internal Medicine 05/06/21 documented as of this encounter
--- OUTSIDE RECORDS SUMMARY | 2025-05-16 16:30 | XMS_ITS | Encounter Summary ---
Author Organization [facility] and [facility] Address [address] [place] [address] Care Team Providers Care Personal Lines Advisor Name Role Phone Caitlyn Bowie MD Primary Care Provider +1- [phone] Encounter Details Date Type Department Care Team (Late st Contact Info) Description 09/09/2021 Scanned Document INTERFACE DEFAULT [address] [place] [address] System, Provider Not In Social History Tobacco [...] of this encounter Care Teams Personal Lines Advisor Relationship Specialty Start Date End Date Caitlyn Bowie MD [address] [address] PCP - General Internal Medicine 05/06/21 documented as of this encounter
--- OUTSIDE RECORDS SUMMARY | 2025-05-16 16:30 | XMS_ITS | Encounter Summary ---
Author Organization [facility] and [facility] Address [address] [place] [address] Care Team Providers Care Teacher Citizenship Name Role Phone Caitlyn Bowie MD Primary Care Provider +1- [phone] Encounter Details Date Type Department Care Team (Late st Contact Info) Description 09/01/2023 Scanned Document INTERFACE DEFAULT [address] [place] [address] System, Provider Not In Social History Tobacco [...] as of this encounter Care Teams Teacher Citizenship Relationship Specialty Start Date End Date Caitlyn Bowie MD [address] [address] PCP - General Internal Medicine 05/06/21 documented as of this encounter
--- OUTSIDE RECORDS SUMMARY | 2025-05-16 16:30 | XMS_ITS | Encounter Summary ---
Author Organization [facility] and [facility] Address [address] [place] [address] Care Team Providers Care Plaster Mold Maker Name Role Phone Caitlyn Bowie MD Primary Care Provider +1- [phone] Encounter Details Date Type Department Care Team ([facility] st Contact Info) Description 06/20/2022 Scanned Document INTERFACE DEFAULT [address] [place] [address] System, Provider Not In Social History Tobacco [...] documented as of this encounter Care Teams Plaster Mold Maker Relationship Specialty Start Date End Date Caitlyn Bowie MD [address] [address] PCP - General Internal Medicine 05/06/21 documented as of this encounter
--- OUTSIDE RECORDS SUMMARY | 2025-05-16 16:31 | XMS_ITS | Encounter Summary ---
Author Organization [facility] Address [address] [place] [address] Care Team Providers Care Housekeeping Cleaner Name Role Phone Caitlyn Bowie MD Primary Care Provider +1- [phone] Encounter Details Date Type Department Care Team ([facility] st Contact Info) Description 10/23/2018 Scanned Document [facility] Health Information Management [address] [place] [address] External, Provider Social History Tobacco Use Types [...] as of this encounter Care Teams Housekeeping Cleaner Relationship Specialty Start Date End Date Caitlyn Bowie MD [address] [address] PCP - General Internal Medicine 05/06/21 Henry Kelly MD Pulmonary Department 175 [facility], [address] [place] [address] Physician Pulmonary Disease 09/06/17 06/22/20 documented as of this encounter
--- OUTSIDE RECORDS SUMMARY | 2025-05-16 16:31 | XMS_ITS | Encounter Summary ---
Author Organization [facility] and [facility] Address [address] [place] [address] Care Team Providers Care Guide Name Role Phone Caitlyn Bowie MD Primary Care Provider +1- [phone] Encounter Details Date Type Department Care Team (Late st Contact Info) Description 04/25/2022 Scanned Document INTERFACE DEFAULT [address] [place] [address] System, Provider Not In Social History Tobacco [...] End Date Caitlyn Bowie MD [address] [address] PCP - General Internal Medicine 05/06/21 documented as of this encounter
--- OUTSIDE RECORDS SUMMARY | 2025-05-16 16:31 | XMS_ITS | Encounter Summary ---
Author Organization [facility] and [facility] Address [address] [place] [address] Care Team Providers Care Senior Software Test Engineer Name Role Phone Caitlyn Bowie MD Primary Care Provider +1- [phone] Encounter Details Date Type Department Care Team ([facility] st Contact Info) Description 04/28/2022 Scanned Document INTERFACE DEFAULT [address] [place] [address] System, Provider Not In Social History Tobacco [...] as of this encounter Care Teams Senior Software Test Engineer Relationship Specialty Start Date End Date Caitlyn Bowie MD [address] [address] PCP - General Internal Medicine 05/06/21 documented as of this encounter
--- OUTSIDE RECORDS SUMMARY | 2025-05-16 16:31 | XMS_ITS | Encounter Summary ---
Author Organization [facility] and [facility] Address [address] [place] [address] Care Team Providers Care Commercial Construction Estimator Name Role Phone Caitlyn Bowie MD Primary Care Provider +1- [phone] Reason for Visit * Reason Comments Results Encounter Details Date Type Department Care Team (Late st Contact Info) Description 03/15/2022 Telephone [facility] at [address] [address] Ronald Milsl MD [address] [place] [address] Results Social History Tobacco Use Types [...] as of this encounter Care Teams Commercial Construction Estimator Relationship Specialty Start Date End Date Caitlyn Bowie MD [address] [address] PCP - General Internal Medicine 05/06/21 documented as of this encounter
--- OUTSIDE RECORDS SUMMARY | 2025-05-16 16:31 | XMS_ITS | Encounter Summary ---
Author Organization [facility] and [facility] Address [address] [place] [address] Care Team Providers Care Copy Center Specialist Name Role Phone Caitlyn Bowie MD Primary Care Provider +1- [phone] Encounter Details Date Type Department Care Team ([facility] st Contact Info) Description 04/12/2022 Scanned Document [facility] Health Information Management [address] [place] [address] External, Provider Social History Tobacco Use Types [...] of this encounter Care Teams Copy Center Specialist Relationship Specialty Start Date End Date Caitlyn Bowie MD [address] [address] PCP - General Internal Medicine 05/06/21 documented as of this encounter
--- OUTSIDE RECORDS SUMMARY | 2025-05-16 16:31 | XMS_ITS | Encounter Summary ---
Author Organization [facility] and [facility] Address [address] [place] [address] Care Team Providers Care Chief Relay Tester Name Role Phone Caitlyn Bowie MD Primary Care Provider +1- [phone] Encounter Details Date Type Department Care Team (Late st Contact Info) Description 12/01/2015 Scanned Document [facility] Health Information Management [address] [place] [address] External, Provider Social History Tobacco Use Types [...] IMG SCAN REPORTS Edited Result - Final [facility] [place], [place], [facility] documented in this encounter Visit Diagnoses Not on filedocumented in this encounter Additional Health Concerns Infection Onset Date Last Indicated Resolved Time COVID-19 03/05/2022 03/05/2022 03/15/2022 7:18 PM EDT documented as of this encounter Care Teams Chief Relay Tester Relationship Specialty Start Date End Date Caitlyn Bowie MD [address] [address] PCP - General Internal Medicine 05/06/21 Henry Kelly MD Pulmonary Department 175 [facility], [address] [place] [address] Physician Pulmonary Disease 09/06/17 06/22/20 documented as of this encounter
--- OUTSIDE RECORDS SUMMARY | 2025-05-16 16:31 | XMS_ITS | Encounter Summary ---
Author Organization [facility] and [facility] Address [address] [place] [address] Care Team Providers Care Production Broaching Machine Operator Name Role Phone Caitlyn Bowie MD Primary Care Provider +1- [phone] Encounter Details Date Type Department Care Team (Late st Contact Info) Description 04/18/2022 Scanned Document INTERFACE DEFAULT [address] [place] [address] System, Provider Not In Social History Tobacco [...] as of this encounter Care Teams Production Broaching Machine Operator Relationship Specialty Start Date End Date Caitlyn Bowie MD [address] [address] PCP - General Internal Medicine 05/06/21 documented as of this encounter
--- OUTSIDE RECORDS SUMMARY | 2025-05-16 16:31 | XMS_ITS | Encounter Summary ---
Author Organization [facility] and [facility] Address [address] [place] [address] Care Team Providers Care Winder Fixer Name Role Phone Caitlyn Bowie MD Primary Care Provider +1- [phone] Encounter Details Date Type Department Care Team (Late st Contact Info) Description 12/03/2015 Scanned Document [facility] Health Information Management [address] [place] [phone] External, Provider Social History Tobacco Use Types [...] BLOOD ORDERABLES Edited Re sult - Final [facility] [place], [place], [facility] documented in this encounter Visit Diagnoses Not on filedocumented in this encounter Additional Health Concerns Infection Onset Date Last Indicated Resolved Time COVID-19 03/05/2022 03/05/2022 03/15/2022 7:18 PM EDT documented as of this encounter Care Teams Winder Fixer Relationship Specialty Start Date End Date Caitlyn oBwie MD 3400 [facility] [address] [place] [address] PCP - General Internal Medicine 05/06/21 Henry Kelly MD Pulmonary Department [address] [place] [address], [address] [place] [address] Physician Pulmonary Disease 09/06/17 06/22/20 documented as of this encounter
--- OUTSIDE RECORDS SUMMARY | 2025-05-16 16:31 | XMS_ITS | Encounter Summary ---
Author Organization [facility] Address [address] [place] [address] Care Team Providers Care Education Instructor Name Role Phone Caityln Bowie MD Primary Care Provider +1- [phone] Encounter Details Date Type Department Care Team (Late st Contact Info) Description 01/28/2019 Scanned Document Cardiovascular Medicine at [address] [place] [address] Cristian Arreguin MBBS [address] [place] [address] Social History Tobacco Use Types [...] as of this encounter Care Teams Education Instructor Relationship Specialty Start Date End Date Caitlyn Bowie MD 3400 [facility] [address] [place] [address] PCP - General Internal Medicine 05/06/21 Henry Kelly MD Pulmonary Department 175 [facility], [address] [place] [address] Physician Pulmonary Disease 09/06/17 06/22/20 documented as of this encounter
--- OUTSIDE RECORDS SUMMARY | 2025-05-16 16:31 | XMS_ITS | Encounter Summary ---
Author Organization [facility] Address [address] [place] [address] Care Team Providers Care Unit Director Name Role Phone Caitlyn Bowie MD Primary Care Provider +1- [phone] Encounter Details Date Type Department Care Team (Late st Contact Info) Description 03/02/2022 Scanned Document [facility] Health Information Management [address] [place] [address] External, Provider Social History Tobacco Use Types [...] as of this encounter Care Teams Unit Director Relationship Specialty Start Date End Date Caitlyn Bowie MD [address] [address] PCP - General Internal Medicine 05/06/21 documented as of this encounter
--- OUTSIDE RECORDS SUMMARY | 2025-05-16 16:31 | XMS_ITS | Encounter Summary ---
Author Organization [facility] and [facility] Address [address] [place] [address] Care Team Providers Care Cognos Administrator Name Role Phone Caitlyn Bowie MD Primary Care Provider +1- [phone] Encounter Details Date Type Department Care Team (Late st Contact Info) Description 11/03/2015 Scanned Document [facility] Health Information Management [address] [place] [address] External, Provider Social History Tobacco Use Types [...] REPORTS Edited Result - Final [facility] [place], [place], [facility] documented in this encounter Visit Diagnoses Not on filedocumented in this encounter Additional Health Concerns Infection Onset Date Last Indicated Resolved Time COVID-19 03/05/2022 03/05/2022 03/15/2022 7:18 PM EDT documented as of this encounter Care Teams Cognos Administrator Relationship Specialty Start Date End Date Caitlyn Bowie MD [address] [address] PCP - General Internal Medicine 05/06/21 Henry Kelly MD Pulmonary Department 175 [facility], [address] [place] [address] Physician Pulmonary Disease 09/06/17 06/22/20 documented as of this encounter
--- OUTSIDE RECORDS SUMMARY | 2025-05-16 16:31 | XMS_ITS | Encounter Summary ---
Author Organization [facility] and [facility] Address [address] [place] [address] Care Team Providers Care Cutting Pressman Name Role Phone Caitlyn Bowie MD Primary Care Provider +1- [phone] Encounter Details Date Type Department Care Team (Late st Contact Info) Description 04/22/2019 Scanned Document [facility] Health Information Management [address] [place] [address] External, Provider Social History Tobacco Use Types [...] as of this encounter Care Teams Cutting Pressman Relationship Specialty Start Date End Date Caitlyn Bowie MD [address] [address] PCP - General Internal Medicine 05/06/21 Henry Kelly MD Pulmonary Department [address] [place] [address], [address] [place] [address] Physician Pulmonary Disease 09/06/17 06/22/20 documented as of this encounter
--- OUTSIDE RECORDS SUMMARY | 2025-05-16 16:31 | XMS_ITS | Encounter Summary ---
Author Organization [facility] and [facility] Address [address] [place] [address] Care Team Providers Care Senior Marketing Engineer Name Role Phone Caitlyn Bowie MD Primary Care Provider +1- [phone] Encounter Details Date Type Department Care Team ([facility] st Contact Info) Description 01/30/2019 Scanned Document [facility] Health Information Management [address] [place] [address] External, Provider Social History Tobacco Use Types [...] as of this encounter Care Teams Senior Marketing Engineer Relationship Specialty Start Date End Date Caitlyn Bowie MD [address] [address] PCP - General Internal Medicine 05/06/21 Henry Kelly MD Pulmonary Department [address] [place] [address], [address] [place] [address] Physician Pulmonary Disease 09/06/17 06/22/20 documented as of this encounter
--- OUTSIDE RECORDS SUMMARY | 2025-05-16 16:31 | XMS_ITS | Encounter Summary ---
Author Organization [facility] and [facility] Address [address] [place] [address] Care Team Providers Care Crisis Intervention Specialist Name Role Phone Caitlyn Bowie MD Primary Care Provider +1- [phone] Encounter Details Date Type Department Care Team ([facility] st Contact Info) Description 03/12/2019 Scanned Document [facility] Health Information Management [address] [place] [address] External, Provider Social History Tobacco Use Types [...] documented as of this encounter Care Teams Crisis Intervention Specialist Relationship Specialty Start Date End Date Caitlyn Bowie MD [address] [address] PCP - General Internal Medicine 05/06/21 Henry Kelly MD Pulmonary Department [address] [place] [address], [address] [place] [address] Physician Pulmonary Disease 09/06/17 06/22/20 documented as of this encounter
--- OUTSIDE RECORDS SUMMARY | 2025-05-16 16:31 | XMS_ITS | Encounter Summary ---
Author Organization [facility] Address [address] [place] [address] Care Team Providers Care Drum Tester Name Role Phone Caitlyn Bowie MD Primary Care Provider +1- [phone] Encounter Details Date Type Department Care Team (Late st Contact Info) Description 04/14/2022 Scanned Document INTERFACE DEFAULT [address] [place] [address] System, Provider Not In Social History Tobacco [...] as of this encounter Care Teams Drum Tester Relationship Specialty Start Date End Date Caitlyn Bowie MD [address] [address] PCP - General Internal Medicine 05/06/21 documented as of this encounter
--- OUTSIDE RECORDS SUMMARY | 2025-05-16 16:31 | XMS_ITS | Encounter Summary ---
Author Organization [facility] and [facility] Address [address] [place] [address] Care Team Providers Care Agronomy Instructor Name Role Phone Caitlyn Bowie MD Primary Care Provider +1- [phone] Encounter Details Date Type Department Care Team (Late st Contact Info) Description 12/16/2015 Scanned Document [facility] Health Information Management [address] [place] [phone] External, Provider Social History Tobacco Use Types [...] SCAN REPORTS Edited Result - Final [facility] [place], [place], [facility] documented in this encounter Visit Diagnoses Not on filedocumented in this encounter Additional Health Concerns Infection Onset Date Last Indicated Resolved Time COVID-19 03/05/2022 03/05/2022 03/15/2022 7:18 PM EDT documented as of this encounter Care Teams Agronomy Instructor Relationship Specialty Start Date End Date Caitlyn Bowie MD [address] [address] PCP - General Internal Medicine 05/06/21 Henry Kelly MD Pulmonary Department 175 [facility], [address] [place] [address] Physician Pulmonary Disease 09/06/17 06/22/20 documented as of this encounter
--- OUTSIDE RECORDS SUMMARY | 2025-05-16 16:31 | XMS_ITS | Encounter Summary ---
Author Organization [facility] Address [address] [place] [address] Care Team Providers Care Online Community Manager Name Role Phone Caitlyn Bowie MD Primary Care Provider +1- [phone] Encounter Details Date Type Department Care Team (Latest Contact Info) Description 12/25/2015 Transcribed Orders [facility] [address] [place] [address] [place] [address] Osmel Briscoe MD Other abnormality of red [...] Q YH) (12/25/2015 10:09 AM EDT) Ig [place] Free Light Chain 1.84 0.33 - 1.94 mg/dL [facility] Ig Lambda Free Light Chain 1.96 0.57 - 2.63 mg/dL [facility] [place]/Lambda FLC Ratio 0.94 0.26 - 1.65 [facility] Blood specimen (specimen) 12/25/2015 10:09 AM EDT Osmel Briscoe MD LAB BLOOD ORDERABLES Final R esult Performing Organization Address [facility] Co de Phone Number [facility] [address] [place] [address] * Immunofixation, serum (GH L Q YH) (12/25/2015 10:09 AM EDT) Immunofixation Electrophoresis Gel See below See Interp. [facility] Comment: INTERPRETATION: Normal immunofixation electrophoresis. No evidence of a serum monoclonal component. SIGNED BY:Keyur KAYE MD ON 12/29/2015 14:56:04 INTERPRETATION REVIEW : I have reviewed these results and agree with this interpretation. Blood specimen (specimen) 12/25/2015 10:09 AM EDT Osmel Briscoe MD LAB BLOOD ORDERABLES Final R esult Performing Organization Address [facility] Co de Phone Number [facility] [address] [place] [address] * (ABNORMAL) Protein electrophoresis, serum (BH GH L YH) (12/25/2015 10:09 AM EDT) Albumin Electrophoresis 3.45(L) 3.50 - 4.70 g/dL [facility] Zlxtm-5-Klgeiuzr 0.16 0.10 - 0.30 g/dL [facility] Awdlh-9-Vdtlcioq 0.81 0.60 - 1.00 g/dL [facility] Beta Globulin 0.86 0.70 - 1.20 g/dL [facility] Gamma Globulin 0.92 0.70 - 1.50 g/dL [facility] SPEP Interpretation See below See Interp. [facility] Comment: INTERPRETATION: No discrete abnormal bands. [...] ORDERABLES Final R esult Performing Organization Address [facility] Co de Phone Number [facility] [address] [place] [phone] * Reticulocytes (GH L Q YH) (12/25/2015 10:09 AM EDT) Reticulocyte Count 2.1 0.6 - 2.7 % [facility] Blood specimen (specimen) 12/25/2015 10:09 AM EDT Osmel Briscoe MD LAB BLOOD ORDERABLES Final R esult Performing Organization Address [facility] Co de Phone Number [facility] [address] [place] [address] * (ABNORMAL) Sedimentation rate (ESR) (12/25/2015 10:09 AM EDT) Sed Rate 27(H) 0 - 20 mm/hr [facility] Blood specimen (specimen) 12/25/2015 10:09 AM EDT Osmel Briscoe MD LAB BLOOD ORDERABLES Final R esult Performing Organization Address [facility] Co de Phone Number [facility] [address] [place] [address] * Ferritin (12/25/2015 10:09 AM EDT) Ferritin 68 9 - 120 ng/mL [facility] Blood specimen (specimen) 12/25/2015 10:09 AM EDT us Omsel Briscoe MD LAB BLOOD ORDERABLES Final R esult Performing Organization Address [facility] de Phone Number [facility] [address] [place] [address] * Iron and TIBC (12/25/2015 10:09 AM EDT) Iron 110 50 - 170 ug/dL [facility] TIBC 290 250 - 450 ug/dL [facility] Iron Saturation 38 15 - 50 [facility] Blood specimen (specimen) 12/25/2015 10:09 AM EDT Osmel Briscoe MD LAB BLOOD ORDERABLES Final R esult Performing Organization Address [facility] de Phone Number [facility] [address] [place] [address] * Vitamin D 25 hydroxy (BH L YH) (12/25/2015 10:09 AM EDT) Vit D, 25-Hydroxy 43 20 - 50 ng/mL [facility] Comment: A serum 25(OH) vitamin D [...] ORDERABLES Final R esult Performing Organization Address [facility] Co de Phone Number [facility] [address] [place] [address] * TSH (BH L YH) (12/25/2015 10:09 AM EDT) TSH cancelled 0.3 - 4.2 uU/mL [facility] TSH 1.62 0.3 - 4.2 uU/mL [facility] Comment:This test is a third generation TSH assay. Blood specimen (specimen) 12/25/2015 10:09 AM EDT us Osmel Briscoe MD LAB BLOOD ORDERABLES Final R esult [facility] [address] [place] [address] * (ABNORMAL) CBC and differential (12/25/2015 10:09 AM EDT) Pathologist [facility] CBC with Differential See Below [facility] WBC 9.9 4.0 - 10.0 x 1000/uL [facility] RBC 4.0 3.8 - 5.2 M/uL [facility] Hemoglobin 13.4 12.0 - 16.0 g/dL [facility] Hematocrit 41.0 37.0 - 47.0 % [facility] MCV 101(H) 78 - 94 fL [facility] MCH 33.2(H) 27.0 - 33.0 pg [facility] MCHC 32.8(L) 33.0 - 37.0 g/dL [facility] RDW 12.5 10.8 - 14.5 % [facility] Platelets 265 150 - 350 x 1000/uL [facility] MPV 7.2 6.0 - 10.0 fL [facility] Neutrophils 82(H) 38 - 71 % [facility] Lymphocytes 7(L) 14 - 46 % [facility] Monocytes 10 2 - 15 % [facility] Eosinophils 1 0 - 5 % [facility] Basophils 0 0 - 2 % [facility] ANC (Abs Neutrophil Count) 8.1 1.0 - 9.0 x 1000/uL [facility] Absolute Lymphocyte Count 0.7 0.6 - 4.6 x 1000/uL [facility] Blood specimen (specimen) ARM NEC / Unknown 12/25/2015 10:09 AM EDT us Osmel Briscoe MD LAB BLOOD ORDERABLES Final R esult [facility] [address] [place] [address] documented in this encounter Visit Diagnoses Diagnosis [...] as of this encounter Care Teams Online Community Manager Relationship Specialty Start Date End Date Caitlyn Bowie MD 3400 [facility] 1 [place] [address] PCP - General Internal Medicine 05/06/21 Henry Kelly MD Pulmonary Department 175 [facility], [address] [place] [address] Physician Pulmonary Disease 09/06/17 06/22/20 documented as of this encounter
--- OUTSIDE RECORDS SUMMARY | 2025-05-16 16:31 | XMS_ITS | Encounter Summary ---
Author Organization [facility] and [facility] Address [address] [place] [address] Care Team Providers Care Video Game Tester Name Role Phone Caitlyn Bowie MD Primary Care Provider +1- [phone] Encounter Details Date Type Department Care Team ([facility] st Contact Info) Description 04/22/2022 Scanned Document INTERFACE DEFAULT [address] [place] [address] System, Provider Not In Social History Tobacco [...] of this encounter Care Teams Video Game Tester Relationship Specialty Start Date End Date Caitlyn Bowie MD [address] [address] PCP - General Internal Medicine 05/06/21 documented as of this encounter
--- OUTSIDE RECORDS SUMMARY | 2025-05-16 16:31 | XMS_ITS | Encounter Summary ---
Author Organization [facility] and [facility] Address [address] [place] [address] Care Team Providers Care Apprentice Painter Hand Name Role Phone Caitlyn Bowie MD Primary Care Provider +1- [phone] Encounter Details Date Type Department Care Team ([facility] st Contact Info) Description 04/19/2022 Scanned Document INTERFACE DEFAULT [address] [place] [address] System, Provider Not In Social History Tobacco [...] of this encounter Care Teams Apprentice Painter Hand Relationship Specialty Start Date End Date Caitlyn Bowie MD [address] [address] PCP - General Internal Medicine 05/06/21 documented as of this encounter
--- OUTSIDE RECORDS SUMMARY | 2025-05-16 16:31 | XMS_ITS | Encounter Summary ---
Author Organization [facility] and [facility] Address [address] [place] [address] Care Team Providers Care Heel Sander Rubber Name Role Phone Caitlyn Bowie MD Primary Care Provider +1- [phone] Encounter Details Date Type Department Care Team (Late st Contact Info) Description 05/10/2022 Scanned Document Cardiovascular Medicine at 175 [facility] 175 [facility] THIRD F[place], [place] [address] Norma Renee MD [address] [place] [phone] Social History Tobacco Use Types Packs/Day Years [...] as of this encounter Care Teams Heel Sander Rubber Relationship Specialty Start Date End Date Caitlyn Bowie MD [address] [address] PCP - General Internal Medicine 05/06/21 documented as of this encounter
--- OUTSIDE RECORDS SUMMARY | 2025-05-16 16:31 | XMS_ITS | Encounter Summary ---
Author Organization [facility] Address [address] [place] [address] Care Team Providers Care Curb Worker Name Role Phone Caitlyn Bowie MD Primary Care Provider +1- [phone] Encounter Details Date Type Department Care Team ([facility] st Contact Info) Description 02/06/2019 Scanned Document [facility] Health Information Management [address] [place] [address] External, Provider Social History Tobacco Use Types [...] as of this encounter Care Teams Curb Worker Relationship Specialty Start Date End Date Caitlyn Bowie MD [address] [address] PCP - General Internal Medicine 05/06/21 Henry Kelly MD Pulmonary Department [address] [place] [address], [address] [place] [address] Physician Pulmonary Disease 09/06/17 06/22/20 documented as of this encounter
--- OUTSIDE RECORDS SUMMARY | 2025-05-16 16:31 | XMS_ITS | Encounter Summary ---
Author Organization [facility] Address [address] [place] [address] Care Team Providers Care Owner/Photographer Name Role Phone Caitlyn Bowie MD Primary Care Provider +1- [phone] Encounter Details Date Type Department Care Team (Late st Contact Info) Description 03/20/2023 Scanned Document [facility] [address] [place] [address] Caitlyn Bowie MD [address] [place] [address] Social History Tobacco Use Types Packs/Day Years [...] on filedocumented in this encounter Care Teams Owner/Photographer Relationship Specialty Start Date End Date Caitlyn Bowie MD [address]00 [place] [address] PCP - General Internal Medicine 03/20/23 documented as of this encounter
--- OUTSIDE RECORDS SUMMARY | 2025-05-16 16:31 | XMS_ITS | Encounter Summary ---
Author Organization [facility] and [facility] Address [address] [place] [address] Care Team Providers Care Rehab Tech Name Role Phone Caitlyn Bowie MD Primary Care Provider +1- [phone] Encounter Details Date Type Department Care Team (Late st Contact Info) Description 09/09/2015 Scanned Document [facility] Health Information Management [address] [place] [address] External, Provider Social History Tobacco Use [...] BLOOD ORDERABLES Final Res ult [facility] [place], [place], [facility] documented in this encounter Visit Diagnoses Not on filedocumented in this encounter Additional Health Concerns Infection Onset Date Last Indicated Resolved Time COVID-19 03/05/2022 03/05/2022 03/15/2022 7:18 PM EDT documented as of this encounter Care Teams Rehab Tech Relationship Specialty Start Date End Date Caitlyn Bowie MD 3400 [facility] 1 [place] [address] PCP - General Internal Medicine 05/06/21 Henry Kelly MD Pulmonary Department 175 [facility], [address] [place] [address] Physician Pulmonary Disease 09/06/17 06/22/20 documented as of this encounter
--- OUTSIDE RECORDS SUMMARY | 2025-05-16 16:31 | XMS_ITS | Encounter Summary ---
Author Organization [facility] and [facility] Address [address] [place] [address] Care Team Providers Care Tie Up Worker Name Role Phone Caitlyn Bowie MD Primary Care Provider +1- [phone] Encounter Details Date Type Department Care Team (Late st Contact Info) Description 01/26/2019 Scanned Document [facility] Health Information Management [address] [place] [address] External, Provider Social History Tobacco Use Types [...] as of this encounter Care Teams Tie Up Worker Relationship Specialty Start Date End Date Caitlyn Bowie MD 3400 [facility] [place] [address] PCP - General Internal Medicine 05/06/21 Henry Kelly MD Pulmonary Department 175 [facility], [address] [place] [address] Physician Pulmonary Disease 09/06/17 06/22/20 documented as of this encounter
--- OUTSIDE RECORDS SUMMARY | 2025-05-16 16:31 | XMS_ITS | Encounter Summary ---
Author Organization [facility] and [facility] Address [address] [place] [address] Care Team Providers Care Plasterer Stucco Name Role Phone Caitlyn Bowie MD Primary Care Provider +1- [phone] Encounter Details Date Type Department Care Team ([facility] st Contact Info) Description 08/28/2015 Scanned Document [facility] Health Information Management [address] [place] [address] External, Provider Social History Tobacco Use Types [...] as of this encounter Care Teams Plasterer Stucco Relationship Specialty Start Date End Date Caitlyn Bowie MD [address] [address] PCP - General Internal Medicine 05/06/21 Henry Kelly MD Pulmonary Department 175 [facility], [address] [place] [address] Physician Pulmonary Disease 09/06/17 06/22/20 documented as of this encounter
--- OUTSIDE RECORDS SUMMARY | 2025-05-16 16:31 | XMS_ITS | Encounter Summary ---
Author Organization [facility] and [facility] Address [address] [place] [address] Care Team Providers Care Airport Tower Controller Name Role Phone Caitlyn Bowie MD Primary Care Provider +1- [phone] Encounter Details Date Type Department Care Team ([facility] st Contact Info) Description 04/11/2019 Scanned Document [facility] Health Information Management [address] [place] [address] External, Provider Social History Tobacco Use Types [...] as of this encounter Care Teams Airport Tower Controller Relationship Specialty Start Date End Date Caitlyn Bowie MD [address] [address] PCP - General Internal Medicine 05/06/21 Henry Kelly MD Pulmonary Department [address] [place] [address], [address] [place] [address] Physician Pulmonary Disease 09/06/17 06/22/20 documented as of this encounter
--- OUTSIDE RECORDS SUMMARY | 2025-05-16 16:31 | XMS_ITS | Encounter Summary ---
Author Organization [facility] and [facility] Address [address] [place] [address] Care Team Providers Care Ms Sql Server Developer Name Role Phone Caitlyn Bowie MD Primary Care Provider +1- [phone] Encounter Details Date Type Department Care Team (Late st Contact Info) Description 09/09/2015 Scanned Document [facility] Health Information Management [address] [place] [address] External, Provider Social History Tobacco Use Types [...] BLOOD ORDERABLES Final Res ult [facility] [place], [place], [place] documented in this encounter Visit Diagnoses Not on filedocumented in this encounter Additional Health Concerns Infection Onset Date Last Indicated Resolved Time COVID-19 03/05/2022 03/05/2022 03/15/2022 7:18 PM EDT documented as of this encounter Care Teams Ms Sql Server Developer Relationship Specialty Start Date End Date Caitlyn Bowie MD 3400 [facility] 1 [place] [address] PCP - General Internal Medicine 05/06/21 Henry Kelly MD Pulmonary Department 175 [facility], [address] [place] [address] Physician Pulmonary Disease 09/06/17 06/22/20 documented as of this encounter
--- OUTSIDE RECORDS SUMMARY | 2025-05-16 16:31 | XMS_ITS | Encounter Summary ---
Author Organization [facility] and [facility] Address [address] [place] [address] Care Team Providers Care Linderman Operator Name Role Phone Caitlyn Bowie MD Primary Care Provider +1- [phone] Encounter Details Date Type Department Care Team (Late st Contact Info) Description 01/28/2019 Scanned Document [facility] Health Information Management [address] [place] [address] External, Provider Social History Tobacco Use Types [...] documented as of this encounter Care Teams Linderman Operator Relationship Specialty Start Date End Date Caitlyn Bowie MD [address] [phone] PCP - General Internal Medicine 05/06/21 Henry Kelly MD Pulmonary Department [address] [place] [address], [address] [place] [address] Physician Pulmonary Disease 09/06/17 06/22/20 documented as of this encounter
--- OUTSIDE RECORDS SUMMARY | 2025-05-16 16:31 | XMS_ITS | Encounter Summary ---
Author Organization [facility] and [facility] Address [address] [place] [address] Care Team Providers Care Mortarman Name Role Phone Caitlyn Bowie MD Primary Care Provider +1- [phone] Encounter Details Date Type Department Care Team (Late st Contact Info) Description 12/04/2018 Scanned Document [facility] Health Information Management [address] [place] [address] External, Provider Social History Tobacco Use Types [...] documented as of this encounter Care Teams Mortarman Relationship Specialty Start Date End Date Caitlyn Bowie MD [address] [address] PCP - General Internal Medicine 05/06/21 Henry Kelly MD Pulmonary Department [address] [place] [address], [address] [place] [address] Physician Pulmonary Disease 09/06/17 06/22/20 documented as of this encounter
--- OUTSIDE RECORDS SUMMARY | 2025-05-16 16:31 | XMS_ITS | Encounter Summary ---
Author Organization [facility] and [facility] Address [address] [place] [address] Care Team Providers Care Lathe Puller Name Role Phone Caitlyn Bowie MD Primary Care Provider +1- [phone] Encounter Details Date Type Department Care Team ([facility] st Contact Info) Description 01/08/2022 Scanned Document INTERFACE DEFAULT [address] [place] [address] System, Provider Not In Social History Tobacco [...] as of this encounter Care Teams Lathe Puller Relationship Specialty Start Date End Date Caitlyn Bowie MD [address] [address] PCP - General Internal Medicine 05/06/21 documented as of this encounter
--- OUTSIDE RECORDS SUMMARY | 2025-05-16 16:31 | XMS_ITS | Encounter Summary ---
Author Organization [facility] and [facility] Address [address] [place] [address] Care Team Providers Care Hotel Or Motel Receptionist Name Role Phone Caitlyn Bowie MD Primary Care Provider +1- [phone] Encounter Details Date Type Department Care Team (Late st Contact Info) Description 09/09/2015 Scanned Document [facility] Health Information Management [address] [place] [address] External, Provider Social History Tobacco Use Types [...] BLOOD ORDERABLES Final Res ult [facility] [place], [place], [facility] documented in this encounter Visit Diagnoses Not on filedocumented in this encounter Additional Health Concerns Infection Onset Date Last Indicated Resolved Time COVID-19 03/05/2022 03/05/2022 03/15/2022 7:18 PM EDT documented as of this encounter Care Teams Hotel Or Motel Receptionist Relationship Specialty Start Date End Date Caitlyn Bowie MD 3400 [facility] 1 [place] [address] PCP - General Internal Medicine 05/06/21 Henry Kelly MD Pulmonary Department 175 [facility], [address] [place] [address] Physician Pulmonary Disease 09/06/17 06/22/20 documented as of this encounter
--- OUTSIDE RECORDS SUMMARY | 2025-05-16 16:31 | XMS_ITS | Encounter Summary ---
Author Organization [facility] and [facility] Address [address] [place] [address] Care Team Providers Care Medical And Health Services Manager Name Role Phone Caitlyn Bowie MD Primary Care Provider +1- [phone] Encounter Details Date Type Department Care Team ([facility] st Contact Info) Description 04/18/2025 Scanned Document INTERFACE DEFAULT [address] [place] [address] System, Provider Not In Social History Tobacco [...] as of this encounter Care Teams Medical And Health Services Manager Relationship Specialty Start Date End Date Caitlyn Bowie MD [address] [address] PCP - General Internal Medicine 05/06/21 documented as of this encounter
--- OUTSIDE RECORDS SUMMARY | 2025-05-16 16:31 | XMS_ITS | Encounter Summary ---
Author Organization [facility] and [facility] Address [address] [place] [address] Care Team Providers Care Registered Nurse Nursery Name Role Phone Caitlyn Bowie MD Primary Care Provider +1- [phone] Encounter Details Date Type Department Care Team (Late st Contact Info) Description 09/24/2015 Scanned Document [facility] [address] [phone] Kevin Espinoza MD [address] [place] [phone] Social History Tobacco Use Types Packs/Day [...] of this encounter Care Teams Registered Nurse Nursery Relationship Specialty Start Date End Date Catilyn Bowie MD [address] [address] PCP - General Internal Medicine 05/06/21 Henry Kelly MD Pulmonary Department [address] [place] [address], [address] [place] [address] Physician Pulmonary Disease 09/06/17 06/22/20 documented as of this encounter
--- OUTSIDE RECORDS SUMMARY | 2025-05-16 16:31 | XMS_ITS | Encounter Summary ---
Author Organization [facility] and [facility] Address [address] [place] [address] Care Team Providers Care Field Nurse Name Role Phone Caitlyn Bowie MD Primary Care Provider +1- [phone] Encounter Details Date Type Department Care Team ([facility] st Contact Info) Description 09/28/2015 Scanned Document [facility] Health Information Management [address] [place] [address] External, Provider Social History Tobacco Use Types [...] Res ult [facility] [place], [place], [facility] documented in this encounter Visit Diagnoses Not on filedocumented in this encounter Additional Health Concerns Infection Onset Date Last Indicated Resolved Time COVID-19 03/05/2022 03/05/2022 03/15/2022 7:18 PM EDT documented as of this encounter Care Teams Field Nurse Relationship Specialty Start Date End Date Caitlyn Bowie MD 3400 [facility] 1 [place] [address] PCP - General Internal Medicine 05/06/21 Henry Kelly MD Pulmonary Department 175 [facility], [address] [place] [address] Physician Pulmonary Disease 09/06/17 06/22/20 documented as of this encounter
--- OUTSIDE RECORDS SUMMARY | 2025-05-16 16:31 | XMS_ITS | Encounter Summary ---
Author Organization [facility] and [facility] Address [address] [place] [address] Care Team Providers Care Boiler Tester Name Role Phone Caitlyn Bowie MD Primary Care Provider +1- [phone] Encounter Details Date Type Department Care Team ([facility] st Contact Info) Description 04/13/2022 Scanned Document INTERFACE DEFAULT [address] [place] [address] System, Provider Not In Social History Tobacco [...] as of this encounter Care Teams Boiler Tester Relationship Specialty Start Date End Date Caitlyn Bowie MD [address] [address] PCP - General Internal Medicine 05/06/21 documented as of this encounter
--- OUTSIDE RECORDS SUMMARY | 2025-05-16 16:31 | XMS_ITS | Encounter Summary ---
Author Organization [facility] Address [address] [place] [address] Care Team Providers Care Firer Glost Kiln Name Role Phone Pcp, No Primary Care Provider Brennan Mario MD Primary Care Provider Caitlyn Bowie MD Primary Care Provider +1- [phone] Encounter Details Date Type Department Care Team (Late st Contact Info) Description 01/04/2022 Scanned Document [facility] Neu[facility] Ophthalmology [address] [address] Yary Whitten DO [address] [place] [address] Social History Tobacco Use Types Packs/Day [...] filedocumented in this encounter Care Teams Firer Glost Kiln Relationship Specialty Start Date End Date Pcp, No PCP - General General Medicine 10/04/21 07/18/22 Brennan Burnett MD [address] [place] [address] PCP - General 07/19/22 03/19/23 Caitlyn Bowie MD [address]00 [place] [address] PCP - General Internal Medicine 03/20/23 documented as of this encounter
--- OUTSIDE RECORDS SUMMARY | 2025-05-16 16:31 | XMS_ITS | Encounter Summary ---
Author Organization [facility] and [facility] Address [address] [place] [address] Care Team Providers Care Business Loan Processor Name Role Phone Caitlyn Bowie MD Primary Care Provider +1- [phone] Encounter Details Date Type Department Care Team (Late st Contact Info) Description 05/04/2022 Scanned Document INTERFACE DEFAULT [address] [place] [address] System, Provider Not In Social History Tobacco [...] as of this encounter Care Teams Business Loan Processor Relationship Specialty Start Date End Date Caitlyn Bwoie MD [address] [address] PCP - General Internal Medicine 05/06/21 documented as of this encounter
--- OUTSIDE RECORDS SUMMARY | 2025-05-16 16:31 | XMS_ITS | Encounter Summary ---
Author Organization [facility] and [facility] Address [address] [place] [address] Care Team Providers Care Paintless Dent Repair Technician Name Role Phone Caitlyn Bowie MD Primary Care Provider +1- [phone] Encounter Details Date Type Department Care Team ([facility] st Contact Info) Description 05/02/2022 Scanned Document INTERFACE DEFAULT [address] [place] [address] System, Provider Not In Social History Tobacco [...] documented as of this encounter Care Teams Paintless Dent Repair Technician Relationship Specialty Start Date End Date Caitlyn Bowie MD [address] [address] PCP - General Internal Medicine 05/06/21 documented as of this encounter
--- OUTSIDE RECORDS SUMMARY | 2025-05-16 16:31 | XMS_ITS | Encounter Summary ---
Author Organization [facility] Address [address] [place] [address] Care Team Providers Care Clinical Engineer Name Role Phone Caitlyn Bowie MD Primary Care Provider +1- [phone] Encounter Details Date Type Department Care Team (Late st Contact Info) Description 12/31/2015 Scanned Document [facility] [address] [place] [address] External, Provider Social History Tobacco Use Types [...] Final Res ult [facility] [place] [facility] [place], [place], [facility] documented in this encounter Visit Diagnoses Not on filedocumented in this encounter Additional Health Concerns Infection Onset Date Last Indicated Resolved Time COVID-19 03/05/2022 03/05/2022 03/15/2022 7:18 PM EDT documented as of this encounter Care Teams Clinical Engineer Relationship Specialty Start Date End Date Caitlyn Bowie MD 3400 [facility] 1 [place] [address] PCP - General Internal Medicine 05/06/21 Henry Kelly MD Pulmonary Department [address] [place] [address], [address] [place] [address] Physician Pulmonary Disease 09/06/17 06/22/20 documented as of this encounter
--- OUTSIDE RECORDS SUMMARY | 2025-05-16 16:31 | XMS_ITS | Encounter Summary ---
Author Organization [facility] Address [address] [place] [address] Care Team Providers Care Flight Communications Officer Name Role Phone Caitlyn Bowie MD Primary Care Provider +1- [phone] Encounter Details Date Type Department Care Team (Late st Contact Info) Description 12/29/2021 Telephone [facility] [address] - [address] [address] Ronald Mills MD [address] [place] [phone] Social History Tobacco Use Types Packs/Day [...] not sure where the blood's coming from. [phone] documented in this encounter Plan of Treatment Not on file documented as of this encounter Visit Diagnoses Not on filedocumented in this encounter Additional Health Concerns Infection Onset Date Last Indicated Resolved Time COVID-19 03/05/2022 03/05/2022 03/15/2022 7:18 PM EDT Assessment Noted Time PHQ-9 Depression Total Score: 2 11/07/19 19 2:06 PM EDT documented as of this encounter Care Teams Flight Communications Officer Relationship Specialty Start Date End Date Caitlyn Bowie MD [facility] [address] [address] PCP - General Internal Medicine 05/06/21 documented as of this encounter
--- OUTSIDE RECORDS SUMMARY | 2025-05-16 16:31 | XMS_ITS | Encounter Summary ---
Author Organization [facility] and [facility] Address [address] [place] [address] Care Team Providers Care Hospital Scientist Name Role Phone Caitlyn Bowie MD Primary Care Provider +1- [phone] Encounter Details Date Type Department Care Team (Late st Contact Info) Description 11/04/2015 Scanned Document [facility] Health Information Management [address] [place] [address] External, Provider Social History Tobacco Use Types [...] IMG SCAN REPORTS Edited Result - Final [facility] [place], [facility] documented in this encounter Visit Diagnoses Not on filedocumented in this encounter Additional Health Concerns Infection Onset Date Last Indicated Resolved Time COVID-19 03/05/2022 03/05/2022 03/15/2022 7:18 PM EDT documented as of this encounter Care Teams Hospital Scientist Relationship Specialty Start Date End Date Caitlyn Bowie MD 3400 [facility] 1 [place] [address] PCP - General Internal Medicine 05/06/21 Henry Kelly MD Pulmonary Department 175 [facility], [address] [place] [address] Physician Pulmonary Disease 09/06/17 06/22/20 documented as of this encounter
--- OUTSIDE RECORDS SUMMARY | 2025-05-16 16:31 | XMS_ITS | Encounter Summary ---
Author Organization [facility] and [facility] Address [address] [place] [address] Care Team Providers Care Tour Bus Driver Name Role Phone Caitlyn Bowie MD Primary Care Provider +1- [phone] Encounter Details Date Type Department Care Team ([facility] st Contact Info) Description 04/12/2022 Scanned Document INTERFACE DEFAULT [address] [place] [address] System, Provider Not In Social History Tobacco [...] as of this encounter Care Teams Tour Bus Driver Relationship Specialty Start Date End Date Caitlyn Bowie MD [address] [address] PCP - General Internal Medicine 05/06/21 documented as of this encounter
--- OUTSIDE RECORDS SUMMARY | 2025-05-16 16:31 | XMS_ITS | Encounter Summary ---
Author Organization [facility] Address [address] [place] [address] Care Team Providers Care Director Security Risk Management Name Role Phone Caitlyn Bowie MD Primary Care Provider +1- [phone] Encounter Details Date Type Department Care Team (Late st Contact Info) Description 12/06/2018 Scanned Document [facility] Health Information Management [address] [place] [address] External, Provider Social History Tobacco Use Types [...] [facility] 1 [place] [address] PCP - General Internal Medicine 05/06/21 Henry Kelly MD Pulmonary Department 175 [facility], [address] [place] [address] Physician Pulmonary Disease 09/06/17 06/22/20 documented as of this encounter
--- OUTSIDE RECORDS SUMMARY | 2025-05-16 16:31 | XMS_ITS | Encounter Summary ---
Author Organization [facility] and [facility] Address [address] [place] [address] Care Team Providers Care Experimental Worker Name Role Phone Caitlyn Bowie MD Primary Care Provider +1- [phone] Encounter Details Date Type Department Care Team ([facility] st Contact Info) Description 04/16/2022 Scanned Document INTERFACE DEFAULT [address] [place] [address] System, Provider Not In Social History Tobacco [...] as of this encounter Care Teams Experimental Worker Relationship Specialty Start Date End Date Caitlyn Bowie MD [address] [address] PCP - General Internal Medicine 05/06/21 documented as of this encounter
--- OUTSIDE RECORDS SUMMARY | 2025-05-16 16:32 | XMS_ITS | Encounter Summary ---
Author Organization [facility] Address [address] [place] [address] Care Team Providers Care Dust Box Worker Name Role Phone Caitlyn Bowie MD Primary Care Provider +1- [phone] Encounter Details Date Type Department Care Team (Late st Contact Info) Description 07/27/2016 Scanned Document [facility] at [facility] [address] [address] Suzy Kong MD 6 [place] [address] Social History Tobacco Use Types [...] as of this encounter Care Teams Dust Box Worker Relationship Specialty Start Date End Date Caitlyn Bowie MD [address] [address] PCP - General Internal Medicine 05/06/21 Henry Kelly MD Pulmonary Department [address] [place] [address], [address] [place] [address] Physician Pulmonary Disease 09/06/17 06/22/20 documented as of this encounter
--- OUTSIDE RECORDS SUMMARY | 2025-05-16 16:32 | XMS_ITS | Encounter Summary ---
Author Organization [facility] Address [address] [place] [address] Care Team Providers Care Clinical Application Manager Name Role Phone Caitlyn Bowie MD Primary Care Provider +1- [phone] Encounter Details Date Type Department Care Team ([facility] st Contact Info) Description 12/14/2016 Scanned Document [facility] Health Information Management [address] [place] [address] External, Provider Social History Tobacco Use Types [...] as of this encounter Care Teams Clinical Application Manager Relationship Specialty Start Date End Date Caitlyn Bowie MD [address] [address] PCP - General Internal Medicine 05/06/21 Henry Kelly MD Pulmonary Department 175 [facility], [address] [place] [address] Physician Pulmonary Disease 09/06/17 06/22/20 documented as of this encounter
--- OUTSIDE RECORDS SUMMARY | 2025-05-16 16:32 | XMS_ITS | Encounter Summary ---
Author Organization [facility] and [facility] Address [address] [place] [address] Care Team Providers Care Starch Dumper Name Role Phone Caitlyn Bowie MD Primary Care Provider +1- [phone] Encounter Details Date Type Department Care Team ([facility] st Contact Info) Description 12/27/2018 Scanned Document [facility] Health Information Management [address] [place] [address] External, Provider Social History Tobacco Use Types [...] documented as of this encounter Care Teams Starch Dumper Relationship Specialty Start Date End Date Caitlyn Bowie MD 3400 [facility] 1 [place] [address] PCP - General Internal Medicine 05/06/21 Henry Kelly MD Pulmonary Department 175 [facility], [address] [place] [address] Physician Pulmonary Disease 09/06/17 06/22/20 documented as of this encounter
--- OUTSIDE RECORDS SUMMARY | 2025-05-16 16:32 | XMS_ITS | Encounter Summary ---
Author Organization [facility] Address [address] [place] [address] Care Team Providers Care Manager Drilling Name Role Phone Caitlyn Bowie MD Primary Care Provider +1- [phone] Encounter Details Date Type Department Care Team ([facility] st Contact Info) Description 12/28/2018 Scanned Document [facility] Health Information Management [address] [place] [address] External, Provider Social History Tobacco Use Types [...] as of this encounter Care Teams Manager Drilling Relationship Specialty Start Date End Date Caitlyn Bowie MD 3400 [facility] 1 [place] [address] PCP - General Internal Medicine 05/06/21 Henry Kelly MD Pulmonary Department 175 [facility], [address] [place] [address] Physician Pulmonary Disease 09/06/17 06/22/20 documented as of this encounter
--- OUTSIDE RECORDS SUMMARY | 2025-05-16 16:32 | XMS_ITS | Encounter Summary ---
Author Organization [facility] and [facility] Address [address] [place] [address] Care Team Providers Care Dyslexia Teacher Name Role Phone Caitlyn Bowie MD Primary Care Provider +1- [phone] Encounter Details Date Type Department Care Team ([facility] st Contact Info) Description 01/17/2019 Scanned Document [facility] Health Information Management [address] [place] [address] External, Provider Social History Tobacco Use Types [...] documented as of this encounter Care Teams Dyslexia Teacher Relationship Specialty Start Date End Date Caitlyn Bowie MD 3400 [facility] 1 [place] [address] PCP - General Internal Medicine 05/06/21 Henry Kelly MD Pulmonary Department 175 [facility], [address] [place] [address] Physician Pulmonary Disease 09/06/17 06/22/20 documented as of this encounter
--- OUTSIDE RECORDS SUMMARY | 2025-05-16 16:32 | XMS_ITS | Encounter Summary ---
Author Organization [facility] and [facility] Address [address] [place] [address] Care Team Providers Care Laborer Orchard Name Role Phone Caitlyn Bowie MD Primary Care Provider +1- [phone] Encounter Details Date Type Department Care Team (Late st Contact Info) Description 12/16/2016 Scanned Document [facility] Health Information Management [address] [place] [address] External, Provider Social History Tobacco Use Types [...] as of this encounter Care Teams Laborer Orchard Relationship Specialty Start Date End Date Caitlyn Bowie MD 3400 [facility] 1 [place] [address] PCP - General Internal Medicine 05/06/21 Henry Kelly MD Pulmonary Department 175 [facility], [address] [place] [address] Physician Pulmonary Disease 09/06/17 06/22/20 documented as of this encounter
--- OUTSIDE RECORDS SUMMARY | 2025-05-16 16:32 | XMS_ITS | Encounter Summary ---
Author Organization [facility] Address [address] [place] [address] Care Team Providers Care Placer Miner Name Role Phone Caitlyn Bowie MD Primary Care Provider +1- [phone] Reason for Referral * Imaging (Routine) - Closed Specialty Diagnoses / Procedures Referred By Arthur dobbs Referred To Contact Procedures NM Lung Ventilation Perfusion ([facility]) External, Provider Referral ID Status Reason Start Date Expiration Date Visits Re quested Visits Authorized [id number] Closed 08/22/2016 08/22/2017 4 4 Encounter Details Date Type Department Care Team (Late st Contact Info) Description 08/22/2016 Scanned Document Thoracic Oncology Program at [address] [address] External, Provider Social History Tobacco Use Types [...] Address [facility] Co de Phone Number [facility] * CT Result Scan (07/27/2016) us Provider External IMG SCAN REPORTS Final Result Performing Organization Address [facility] Co de Phone Number [facility] * Cardiac EKG Result Scan (07/27/2016) us Provider External CV CARDIAC REPORT (CVR) Final Result Performing Organization Address [facility] Co de Phone Number [facility] * CT Result Scan (07/27/2016) us Provider External IMG SCAN REPORTS Final Result Performing Organization Address [facility] de Phone Number [facility] * Lab Scan (07/27/2016) Blood specimen (specimen) us Provider External LAB BLOOD ORDERABLES Final Res ult Performing Organization Address [facility] Co de Phone Number [facility] * NM Lung Ventilation Perfusion ([facility]) (07/27/2016) Anatomical Region Laterality Modality Chest, Lung Nuclear Medicine us Provider External IMG NM ORDERABLES Final Result documented in this encounter Visit Diagnoses Not on filedocumented in this encounter Additional Health Concerns Infection Onset Date Last Indicated Resolved Time COVID-19 03/05/2022 03/05/2022 03/15/2022 7:1 8 PM EDT documented as of this encounter Care Teams Placer Miner Relationship Specialty Start Date End Date Caitlyn Bowie MD 3400 [facility] [address] [place] [address] PCP - General Internal Medicine 05/06/21 Henry Kelly MD Pulmonary Department 175 [facility], [address] [place] [address] Physician Pulmonary Disease 09/06/17 06/22/20 documented as of this encounter
--- OUTSIDE RECORDS SUMMARY | 2025-05-16 16:32 | XMS_ITS | Encounter Summary ---
Author Organization [facility] Address [address] [place] [address] Care Team Providers Care Material Combiner Name Role Phone Caitlyn Bowie MD Primary Care Provider +1- [phone] Encounter Details Date Type Department Care Team (Late st Contact Info) Description 04/08/2024 Scanned Document INTERFACE DEFAULT [address] [place] [address] System, Provider Not In Social History Tobacco [...] as of this encounter Care Teams Material Combiner Relationship Specialty Start Date End Date Caitlyn Bowie MD [address] [address] PCP - General Internal Medicine 05/06/21 documented as of this encounter
--- OUTSIDE RECORDS SUMMARY | 2025-05-16 16:32 | XMS_ITS | Clinical Summary ---
Author Organization [facility] Address [address] [place] [address] Phone Care Team Providers Care Coke Burner Name Role Phone Caitlyn Bowie MD [...] (12/25/2021 4:22 PM EDT): Followed closely by practicing md anesthesiologist-Dr. Ronald Mills at [facility]- advised to continue Coumadin anticoagulation at [...] (09/09/2021 10:42 PM EST): Followed closely by practicing md anesthesiologist-Dr. Ronald Mills at [facility]- last seen on 08/05/2021 and advised [...] anticoagulation clinic to keep INR at 1.5-2.0. 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 Daily [...] alternating low dosing as prescribed by her manager quality systems and consider gentle taper when ready. Daily [...] 11:40 AM EST Office Visit [facility] [address] [place] [address] [place] [address] Anna Ellis MD [address] [place] [address] [address] [place] [address] [email or web address] Health Maintenance Due Date Last Done Comments [...] Blood us Anna Ellis MD LAB BLOOD BKR ORDERABL ES Final Result [facility] [address] [place] [address] from Last 3 Months or Most Recently Relevant to Health Maintenance Insurance MEDICARE PART A & B [facility] MEDEX SUPPLEMENT HEALTH SAFETY [facility] MEDICARE PART A & B [facility] MEDEX SUPPLEMENT [facility] MEDICARE PART A & B [facility] MEDEX SUPPLEMENT HEALTH SAFETY [facility] MEDICARE PART A & B [facility] MEDEX SUPPLEMENT [facility]ICARE PART A & B [facility] MEDEX SUPPLEMENT HEALTH SAFETY [facility] MEDICARE PART A & B [facility] MEDEX SUPPLEMENT [facility] MEDICARE PART A & B [facility] MEDEX SUPPLEMENT HEALTH SAFETY [facility] MEDICARE PART A & B [facility] MEDEX SUPPLEMENT [facility] SAFETY [facility] MEDICARE PART A & B [facility] MEDEX SUPPLEMENT [facility] NET [facility] Care Teams Coke Burner Relationship Specialty Start Date End Date Caitlyn Bowie MD PCP - General Internal Medicine 09/09/21 Additional Source Comments The information contained in this document represents components of the legal health record. It is not the complete legal health record.[facility]
--- OUTSIDE RECORDS SUMMARY | 2025-05-16 16:32 | XMS_ITS | Encounter Summary ---
Author Organization [facility] Address [address] [place] [address] Care Team Providers Care Edge Sander Name Role Phone Caitlyn Bowie MD Primary Care Provider +1- [phone] Encounter Details Date Type Department Care Team ([facility] st Contact Info) Description 02/08/2016 Scanned Document [facility] Health Information Management [address] [place] [address] External, Provider Social History Tobacco Use [...] as of this encounter Care Teams Edge Sander Relationship Specialty Start Date End Date Caitlyn Bowie MD [address] [address] PCP - General Internal Medicine 05/06/21 Henry Kelly MD Pulmonary Department 175 [facility], [address] [place] [address] Physician Pulmonary Disease 09/06/17 06/22/20 documented as of this encounter
--- OUTSIDE RECORDS SUMMARY | 2025-05-16 16:32 | XMS_ITS | Encounter Summary ---
Author Organization [facility] Address [address] [place] [address] Care Team Providers Care Nutritionists Name Role Phone Caitlyn Bowie MD Primary Care Provider +1- [phone] Encounter Details Date Type Department Care Team ([facility] st Contact Info) Description 06/17/2016 Scanned Document [facility] Health Information Management [address] [place] [address] External, Provider Social History Tobacco Use Types [...] documented as of this encounter Care Teams Nutritionists Relationship Specialty Start Date End Date Caitlyn Bowie MD [address] [address] PCP - General Internal Medicine 05/06/21 Henry Kelly MD Pulmonary Department 175 [facility], [address] [place] [address] Physician Pulmonary Disease 09/06/17 06/22/20 documented as of this encounter
--- OUTSIDE RECORDS SUMMARY | 2025-05-16 16:32 | XMS_ITS | Encounter Summary ---
Author Organization [facility] Address [address] [place] [address] Care Team Providers Care Commodity Manager Name Role Phone Caitlyn Bowie MD Primary Care Provider +1- [phone] Encounter Details Date Type Department Care Team (Late st Contact Info) Description 07/27/2016 Scanned Document Thoracic Oncology Program at [facility] [address] [address] Suzy Kong MD [address] [place] [address] Social History Tobacco Use Types [...] as of this encounter Care Teams Commodity Manager Relationship Specialty Start Date End Date Caitlyn Bowie MD [address] [address] PCP - General Internal Medicine 05/06/21 Henry Kelly MD Pulmonary Department [address] [place] [address], [address] [place] [address] Physician Pulmonary Disease 09/06/17 06/22/20 documented as of this encounter
--- OUTSIDE RECORDS SUMMARY | 2025-05-16 16:32 | XMS_ITS | Encounter Summary ---
Author Organization [facility] Address [address] [place] [address] Care Team Providers Care Type Inspector Name Role Phone Caitlyn Bowie MD Primary Care Provider +1- [phone] Encounter Details Date Type Department Care Team ([facility] st Contact Info) Description 04/23/2024 Scanned Document INTERFACE DEFAULT [address] [place] [address] System, Provider Not In Social History Tobacco [...] as of this encounter Care Teams Type Inspector Relationship Specialty Start Date End Date Caitlyn Bowie MD [address] [address] PCP - General Internal Medicine 05/06/21 documented as of this encounter
--- OUTSIDE RECORDS SUMMARY | 2025-05-16 16:32 | XMS_ITS | Encounter Summary ---
Author Organization [facility] and [facility] Address [address] [place] [address] Care Team Providers Care Stockroom Helper Name Role Phone Caitlyn Bowie MD Primary Care Provider +1- [phone] Encounter Details Date Type Department Care Team ([facility] st Contact Info) Description 06/17/2016 Scanned Document [facility] Health Information Management [address] [place] [address] External, Provider Social History Tobacco Use Types [...] as of this encounter Care Teams Stockroom Helper Relationship Specialty Start Date End Date Caitlyn Bowie MD [address] [address] PCP - General Internal Medicine 05/06/21 Henry Kelly MD Pulmonary Department 175 [facility], [address] [place] [address] Physician Pulmonary Disease 09/06/17 06/22/20 documented as of this encounter
--- OUTSIDE RECORDS SUMMARY | 2025-05-16 16:32 | XMS_ITS | Encounter Summary ---
Author Organization [facility] Address [address] [place] [address] Care Team Providers Care Cable Respooler Name Role Phone Caitlyn Bowie MD Primary Care Provider +1- [phone] Encounter Details Date Type Department Care Team (Late st Contact Info) Description 04/04/2016 Scanned Document [facility] Health Information Management [address] [place] [address] External, Provider Social History Tobacco Use Types [...] Final Res ult [facility] [place], [place], [facility] documented in this encounter Visit Diagnoses Not on filedocumented in this encounter Additional Health Concerns Infection Onset Date Last Indicated Resolved Time COVID-19 03/05/2022 03/05/2022 03/15/2022 7:18 PM EDT documented as of this encounter Care Teams Cable Respooler Relationship Specialty Start Date End Date Caitlyn Bowie MD 3400 [facility] 1 [place] [address] PCP - General Internal Medicine 05/06/21 Henry Kelly MD Pulmonary Department 175 [facility], [address] [place] [address] Physician Pulmonary Disease 09/06/17 06/22/20 documented as of this encounter
--- OUTSIDE RECORDS SUMMARY | 2025-05-16 16:32 | XMS_ITS | Encounter Summary ---
Author Organization [facility] Address [address] [place] [address] Care Team Providers Care Agriculture Department Chair Name Role Phone Caitlyn Bowie MD Primary Care Provider +1- [phone] Encounter Details Date Type Department Care Team (Late st Contact Info) Description 07/27/2016 Scanned Document [facility] [address] [address] Suzy Kong MD [address] [place] [address] Social History Tobacco Use Types [...] as of this encounter Care Teams Agriculture Department Chair Relationship Specialty Start Date End Date Caitlyn Bowie MD [address] [address] PCP - General Internal Medicine 05/06/21 Henry Kelly MD Pulmonary Department [address] [place] [address], [address] [place] [address] Physician Pulmonary Disease 09/06/17 06/22/20 documented as of this encounter
--- OUTSIDE RECORDS SUMMARY | 2025-05-16 16:32 | XMS_ITS | Encounter Summary ---
Author Organization [facility] and [facility] Address [address] [place] [address] Care Team Providers Care Rehabilitation Nurse Name Role Phone Caitlyn Bowie MD Primary Care Provider +1- [phone] Encounter Details Date Type Department Care Team (Late st Contact Info) Description 06/17/2016 Scanned Document [facility] Health Information Management [address] [place] [address] External, Provider Social History Tobacco Use Types [...] External IMG SCAN REPORTS Final Result [facility] [place], [place], [facility] documented in this encounter Visit Diagnoses Not on filedocumented in this encounter Additional Health Concerns Infection Onset Date Last Indicated Resolved Time COVID-19 03/05/2022 03/05/2022 03/15/2022 7:18 PM EDT documented as of this encounter Care Teams Rehabilitation Nurse Relationship Specialty Start Date End Date Caitlyn Bowie MD 3400 [facility] [address] [place] [address] PCP - General Internal Medicine 05/06/21 Henry Kelly MD Pulmonary Department 175 [facility], [address] [place] [address] Physician Pulmonary Disease 09/06/17 06/22/20 documented as of this encounter
--- OUTSIDE RECORDS SUMMARY | 2025-05-16 16:32 | XMS_ITS | Encounter Summary ---
Author Organization [facility] and [facility] Address [address] [place] [address] Care Team Providers Care Coat Operator Insulator Name Role Phone Caitlyn Bowie MD Primary Care Provider +1- [phone] Encounter Details Date Type Department Care Team ([facility] st Contact Info) Description 01/13/2019 Scanned Document [facility] Health Information Management [address] [place] [address] External, Provider Social History Tobacco Use [...] as of this encounter Care Teams Coat Operator Insulator Relationship Specialty Start Date End Date Caitlyn Bowie MD 3400 [facility] 1 [place] [address] PCP - General Internal Medicine 05/06/21 Henry Kelly MD Pulmonary Department 175 [facility], [address] [place] [address] Physician Pulmonary Disease 09/06/17 06/22/20 documented as of this encounter
--- OUTSIDE RECORDS SUMMARY | 2025-05-16 16:32 | XMS_ITS | Encounter Summary ---
Author Organization [facility] and [facility] Address [address] [place] [address] Care Team Providers Care Hand Knitter Name Role Phone Caitlyn Bowie MD Primary Care Provider +1- [phone] Encounter Details Date Type Department Care Team ([facility] st Contact Info) Description 01/09/2019 Scanned Document [facility] Health Information Management [address] [place] [address] External, Provider Social History Tobacco Use Types [...] as of this encounter Care Teams Hand Knitter Relationship Specialty Start Date End Date Caitlyn Bowie MD 3400 [facility] 1 [place] [address] PCP - General Internal Medicine 05/06/21 Henry Kelly MD Pulmonary Department 175 [facility], [address] [place] [address] Physician Pulmonary Disease 09/06/17 06/22/20 documented as of this encounter
--- OUTSIDE RECORDS SUMMARY | 2025-05-16 16:32 | XMS_ITS | Encounter Summary ---
Author Organization [facility] and [facility] Address [address] [place] [address] Care Team Providers Care Can Labeler Name Role Phone Caitlyn Bowie MD Primary Care Provider +1- [phone] Encounter Details Date Type Department Care Team ([facility] st Contact Info) Description 01/02/2019 Scanned Document [facility] Health Information Management [address] [place] [address] External, Provider Social History Tobacco Use Types [...] as of this encounter Care Teams Can Labeler Relationship Specialty Start Date End Date Caitlyn Bowie MD 3400 [facility] 1 [place] [address] PCP - General Internal Medicine 05/06/21 Henry Kelly MD Pulmonary Department 175 [facility], [address] [place] [address] Physician Pulmonary Disease 09/06/17 06/22/20 documented as of this encounter
--- OUTSIDE RECORDS SUMMARY | 2025-05-16 16:32 | XMS_ITS | Encounter Summary ---
Author Organization [facility] Address [address] [place] [address] Care Team Providers Care Cargo Trimmer Name Role Phone Caitlyn Bowie MD Primary Care Provider +1- [phone] Encounter Details Date Type Department Care Team (Late st Contact Info) Description 12/14/2016 Scanned Document [facility] Health Information Management [address] [place] [address] External, Provider Social History Tobacco Use [...] documented as of this encounter Care Teams Cargo Trimmer Relationship Specialty Start Date End Date Caitlyn Bowie MD 3400 [facility] [address] [place] [address] PCP - General Internal Medicine 05/06/21 Henry Kelly MD Pulmonary Department 175 [facility], [address] [place] [address] Physician Pulmonary Disease 09/06/17 06/22/20 documented as of this encounter
--- OUTSIDE RECORDS SUMMARY | 2025-05-16 16:32 | XMS_ITS | Clinical Summary ---
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
--- OUTSIDE RECORDS SUMMARY | 2025-05-16 16:32 | XMS_ITS | Encounter Summary ---
Author Organization [facility] and [facility] Address [address] [place] [address] Care Team Providers Care Hotel Controller Name Role Phone Caitlyn Bowie MD Primary Care Provider +1- [phone] Encounter Details Date Type Department Care Team ([facility] st Contact Info) Description 10/10/2016 Scanned Document [facility] Health Information Management [address] [place] [address] External, Provider Social History Tobacco Use Types [...] as of this encounter Care Teams Hotel Controller Relationship Specialty Start Date End Date Caitlyn Bowie MD [address] [address] PCP - General Internal Medicine 05/06/21 Henry Kelly MD Pulmonary Department 175 [facility], [address] [place] [address] Physician Pulmonary Disease 09/06/17 06/22/20 documented as of this encounter
--- OUTSIDE RECORDS SUMMARY | 2025-05-16 16:32 | XMS_ITS | Encounter Summary ---
Author Organization [facility] and [facility] Address [address] [place] [address] Care Team Providers Care Control Clerk Head Name Role Phone Caitlyn Bowie MD Primary Care Provider +1- [phone] Encounter Details Date Type Department Care Team ([facility] st Contact Info) Description 07/08/2016 Scanned Document [facility] Health Information Management [address] [place] [address] External, Provider Social History Tobacco Use Types [...] ORDERABLES Final Res ult [facility] [place], [place], [facility] documented in this encounter Visit Diagnoses Not on filedocumented in this encounter Additional Health Concerns Infection Onset Date Last Indicated Resolved Time COVID-19 03/05/2022 03/05/2022 03/15/2022 7:18 PM EDT documented as of this encounter Care Teams Control Clerk Head Relationship Specialty Start Date End Date Caitlyn Bowie MD 3400 [facility] 1 [place] [address] PCP - General Internal Medicine 05/06/21 Henry Kelly MD Pulmonary Department 175 [facility], [address] [place] [address] Physician Pulmonary Disease 09/06/17 06/22/20 documented as of this encounter
--- OUTSIDE RECORDS SUMMARY | 2025-05-16 16:32 | XMS_ITS | Encounter Summary ---
Author Organization [facility] and [facility] Address [address] [place] [address] Care Team Providers Care Laborer Plumbing Name Role Phone Caitlyn Bowie MD Primary Care Provider +1- [phone] Encounter Details Date Type Department Care Team (Late st Contact Info) Description 12/16/2016 Scanned Document [facility] Health Information Management [address] [place] [address] External, Provider Social History Tobacco Use Types [...] as of this encounter Care Teams Laborer Plumbing Relationship Specialty Start Date End Date Caitlyn Bowie MD 3400 [facility] [address] [place] [address] PCP - General Internal Medicine 05/06/21 Henry Kelly MD Pulmonary Department 175 [facility], [address] [place] [address] Physician Pulmonary Disease 09/06/17 06/22/20 documented as of this encounter
--- OUTSIDE RECORDS SUMMARY | 2025-05-16 16:32 | XMS_ITS | Encounter Summary ---
Author Organization [facility] and [facility] Address [address] [place] [address] Care Team Providers Care Athletic Monitor Name Role Phone Caitlyn Bowie MD Primary Care Provider +1- [phone] Encounter Details Date Type Department Care Team ([facility] st Contact Info) Description 04/19/2024 Scanned Document INTERFACE DEFAULT [address] [place] [address] System, Provider Not In Social History Tobacco [...] documented as of this encounter Care Teams Athletic Monitor Relationship Specialty Start Date End Date Caitlyn Bowie MD [address] [address] PCP - General Internal Medicine 05/06/21 documented as of this encounter
--- OUTSIDE RECORDS SUMMARY | 2025-05-16 16:32 | XMS_ITS | Encounter Summary ---
Author Organization [facility] and [facility] Address [address] [place] [id number] Care Team Providers Care Brine Tank Separator Operator Name Role Phone Caitlyn Bowie MD Primary Care Provider +1- [phone] Encounter Details Date Type Department Care Team ([facility] st Contact Info) Description 09/09/2024 Scanned Document INTERFACE DEFAULT [address] [place] [id number] System, Provider Not In Social History Tobacco [...] as of this encounter Care Teams Brine Tank Separator Operator Relationship Specialty Start Date End Date Caitlyn Bowie MD [address] [address] PCP - General Internal Medicine 05/06/21 documented as of this encounter
--- OUTSIDE RECORDS SUMMARY | 2025-05-16 16:32 | XMS_ITS | Encounter Summary ---
Author Organization [facility] and [facility] Address [address] [place] [phone] Care Team Providers Care Regulator Operator Name Role Phone Caitlyn Bowie MD Primary Care Provider +1- [phone] Encounter Details Date Type Department Care Team ([facility] st Contact Info) Description 01/08/2019 Scanned Document [facility] Health Information Management [address] [place] [id number] External, Provider Social History Tobacco Use Types [...] documented as of this encounter Care Teams Regulator Operator Relationship Specialty Start Date End Date Caitlyn Bowie MD [address] [address] PCP - General Internal Medicine 05/06/21 Henry Kelly MD Pulmonary Department [address] [place] [address], [address] [place] [address] Physician Pulmonary Disease 09/06/17 06/22/20 documented as of this encounter
--- OUTSIDE RECORDS SUMMARY | 2025-05-16 16:32 | XMS_ITS | Encounter Summary ---
Author Organization [facility] and [facility] Address [address] [place] [phone] Care Team Providers Care Hr Systems Analyst Name Role Phone Caitlyn Bowie MD Primary Care Provider +1- [phone] Encounter Details Date Type Department Care Team ([facility] st Contact Info) Description 09/23/2024 Scanned Document INTERFACE DEFAULT [address] [place] [address] System, Provider Not In Social History Tobacco [...] as of this encounter Care Teams Hr Systems Analyst Relationship Specialty Start Date End Date Caitlyn Bowie MD [address] [phone] PCP - General Internal Medicine 05/06/21 documented as of this encounter
--- OUTSIDE RECORDS SUMMARY | 2025-05-16 16:32 | XMS_ITS | Encounter Summary ---
Author Organization [facility] and [facility] Address [address] [place] [phone] Care Team Providers Care Jewel Hole Driller Name Role Phone Caitlyn Bowie MD Primary Care Provider +1- [phone] Encounter Details Date Type Department Care Team ([facility] st Contact Info) Description 09/15/2024 Scanned Document INTERFACE DEFAULT [address] [place] [address] System, Provider Not In Social History Tobacco [...] as of this encounter Care Teams Jewel Hole Driller Relationship Specialty Start Date End Date Caitlyn Bowie MD [address] [phone] PCP - General Internal Medicine 05/06/21 documented as of this encounter
--- OUTSIDE RECORDS SUMMARY | 2025-05-16 16:32 | XMS_ITS | Encounter Summary ---
Author Organization [facility] and [facility] Address [address] [place] [address] Care Team Providers Care Tree Trimmer Name Role Phone Caitlyn Bowie MD Primary Care Provider +1- [phone] Encounter Details Date Type Department Care Team ([facility] st Contact Info) Description 08/08/2024 Scanned Document INTERFACE DEFAULT [address] [place] [address] System, Provider Not In Social History Tobacco [...] as of this encounter Care Teams Tree Trimmer Relationship Specialty Start Date End Date Caitlyn Bowie MD [address] [phone] PCP - General Internal Medicine 05/06/21 documented as of this encounter
--- OUTSIDE RECORDS SUMMARY | 2025-05-16 16:32 | XMS_ITS | Encounter Summary ---
Author Organization [facility] and [facility] Address [address] [place] [phone] Care Team Providers Care Net Software Developer Name Role Phone Caitlyn Bowie MD Primary Care Provider +1- [phone] Encounter Details Date Type Department Care Team ([facility] st Contact Info) Description 10/23/2024 Scanned Document INTERFACE DEFAULT [address] [place] [phone] System, Provider Not In Social History Tobacco [...] as of this encounter Care Teams Net Software Developer Relationship Specialty Start Date End Date Caitlyn Bowie MD [address] [address] PCP - General Internal Medicine 05/06/21 documented as of this encounter
== END 2025-05-16 16:05 | disposition home or self-care (01) ==
LOC: HO.HPS 15:20
PROVIDERS: PCP Internal Medicine; Visit Provider Hospitalist
DX: J41.0 Simple chronic bronchitis (principal); J96.12 Chronic respiratory failure with hypercapnia; I27.20 Pulmonary hypertension, unspecified; R91.8 Other nonspecific abnormal finding of lung field; J96.11 Chronic respiratory failure with hypoxia; J70.1 Chronic and other pulmonary manifestations due to radiation; I50.32 Chronic diastolic (congestive) heart failure; C34.12 Malignant neoplasm of upper lobe, left bronchus or lung; J90 Pleural effusion, not elsewhere classified; G47.33 Obstructive sleep apnea (adult) (pediatric)
CPT/HCPCS: 99215; G2211

== ENCOUNTER → 2025-05-16 15:19 | Outpatient (BNVA) | payer MEDICARE, SELFPAY | PROVIDERS: PCP Internal Medicine; Visit Provider Hospitalist | DX: J41.0 Simple chronic bronchitis (principal); R50.2 Drug induced fever; J96.12 Chronic respiratory failure with hypercapnia; I27.20 Pulmonary hypertension, unspecified; R91.8 Other nonspecific abnormal finding of lung field; J96.11 Chronic respiratory failure with hypoxia; J70.1 Chronic and other pulmonary manifestations due to radiation; I50.32 Chronic diastolic (congestive) heart failure; C34.12 Malignant neoplasm of upper lobe, left bronchus or lung; J90 Pleural effusion, not elsewhere classified; G47.33 Obstructive sleep apnea (adult) (pediatric) | CPT/HCPCS: 99212 ==

== ENCOUNTER 2025-05-18 07:55 | Emergency (ER) | payer MEDICARE, SELFPAY ==
--- OUTSIDE RECORDS SUMMARY | 2025-05-14 09:45 | XMS_ITS | Encounter Summary ---
Author Organization [facility] Address [address] [place] [address] Care Team Providers Care Corporate Account Executive Name Role Phone Caitlyn Bowie MD Primary Care Provider +1- [phone] Reason for Visit * Consultation (Routine) - Authorized Specialty Diagnoses / Procedures Referred By Arthur dobbs Referred To Contact Physical Therapy Diagnoses Gait abnormality White matter lesion of central nervous system Shirley Chaidez PA [address] [place] [phone] Phone: tel: fax: Referral ID Status Reason Start Date Expiration Date Visits Requested Visits Authorized [id number] Authorized Specialty Services Required 03/06/2025 03/06/2026 10 20 Encounter Details Date Type Department Care Team ([facility] st Contact Info) Description 05/14/2025 9:45 AM EST Treatment [facility] Out[facility] [address] [address] Bruno Moreno, PT [address] [place] [address] Gait abnormality (Primary Dx); Cerebral lesion Social History Tobacco Use Types Packs/Day Years [...] Assessment Author No 02/23/2025 2:36 PM EDT Dolgraciela, As baljit Quiroz RN * Because of [...] Date Author No 02/23/2025 2:36 PM EDT Dolgraciela, As baljit Quiroz RN documented in this encounter Progress Notes * Bruno Moreno, PT - 05/14/2025 9:45 AM EST [facility] - Outpatient PHYSICAL THERAPY DAILY TREATMENT NOTE - OP Date: 05/14/2025 Visit Number: [id number] Patient Name: Jovana Malik : 1945 Age: 80 y.o. Gender: female Diagnosis: ICD-10-CM ICD-9-CM 1. Gait abnormality R26.9 781.2 2. Cerebral lesion G93.9 348.89 Date of Onset/Surgery: 03/06/2025 Referring Provider: Shirley Chaidez PA Insurance: Payor: MEDICARE / Plan: MEDICARE PART A & B / Product Type: Medicare / Patient Identified by: Bruno Moreno, PT Language: Speaks and understands Swedish as preferred language with no cloth weigher required Medications: Medications Ordered Prior to Encounter[1] Allergies: is allergic to avanafil, avocado, avocado (laurus persea), barium iodide, clarithromycin, diatrizoate meglumine, diclofenac, erythromycin, gentamicin, iodinated contrast media, metronidazole, mold, moxifloxacin, penicillins, sulfa (sulfonamide antibiotics), vancomycin, amlodipine, levoflo xacin, morphine, shrimp, azithromycin, barium sulfate, bee pollen, bee venom protein (honey bee), ciprofloxacin, diatrizoate isadora-diatrizoat sod, diclofenac sodium, isosorbide mononitrate, other, procaine, and sulfur. Precautions: Osteoporosis Restricted lung disease Fibromyalgia Voltaren Optic neuropathy CPRS B LE--sensitive Fall risk: No SUBJECTIVE Subjective Report: Patient reports I'm sore everywhere. I think it might rain . When asked how shewas after the first treatment visit, pt reports some mm soreness, but no increase in overall pain. Chart Reviewed: Yes ambulates with O2 cart. (On 2 L of O2) 100% HR 85 pre treat After 5 min NuStep %100, 78 BPM, 123/55 mmgh Pain: 6/10 over TREATMENT INTERVENTION: NuStep x 5 mins LE on y L 3 Calf stretching on slant board 3 x 20 sec hold STS from chair with 1 air ex cushion 2 x 10 Standing Toe raises 10 reps 5 sec hold standing heel raises 10 reps x 5 sec hold Seated knee ext with yellow theraband resistance around ankles decreased ext ROM L greater than R LE, C/O pain L lower back but able to complete 10 reps Side stepping 5 laps outside of // bars ap pro 6 ft NEW: hip rotations 2x15 with ball between knees NEW: resisted clamshells 2 x 10 5 sec hold ASSESSMENT/Response to Treatment Good although reported experiencing global pain when arriving, pt able to perform all exercises without C/O net increase in pain Patient Education: Education Provided To: Patient utilizing Explanation mode(s) of education Response to Education: Verbal Understanding PLAN POC Development/Review: No Change in the Plan of Care; Participants: Patient Interventions Time Entry: Modalities: Therapeutic procedures: Therapeutic Exercise Time Entry: 45 Total Treatment Time: 40 mins Documentation completed by Bruno Moreno PT [1] Current Outpatient Medications on File Prior to Visit Medication Sig Dispense Refill albuterol HFA (PROAIR [...] tab daily 2 tabs Sat. And Sun magnesium oxide (MAG-OX) 400 mg magnesium tablet Take 1 tablet (400 mg total) by mouth 1 (one) timeeach day. 30 tablet 2 meclizine (ANTIVERT) 25 mg tablet Take 25 [...] change dietary habits. No current facility-administered medications on file prior to visit. documented in this encounter Plan of Treatment Upcoming Encounters Date Type Department Care Team (Late st Contact Info) Description 05/19/2025 10:30 AM EST Treatment [address] [address] Bruno Moreno, PT [address] [place] [address] 05/21/2025 10:15 AM EST Treatment [address] [phone] Gene Marshall, APPLICATION PACKAGER 05/26/2025 10:30 AM EST Treatment [address] [phone] Bruno Moreno, PT [address] [place] [address] 05/28/2025 1:30 PM EST Treatment [address] [phone] Gene Marshall, APPLICATION PACKAGER 05/29/2025 3:00 PM EST Office Visit [address] [phone] Ayanna Jaffe MD [address] [place] [address] 06/02/2025 10:30 AM EST Treatment [address] [phone] Bruno Moreno, PT [address] [place] [address] 06/04/2025 10:15 AM EST Treatment [facility] [place] [address] [phone] Bruno Moreno, PT [address] [place] [address] documented as of this encounter Goals Goal Patient Goal Type Associated Problems Recent Progress Patient-Stated? Author feel better. Improve balance General Yes Bruno Moreno, PT PT STG x 8 visis from [facility] on 04/14/2025 General No Bruno Moreno, PT [...] 4/5 L PT LTG 16 visits from [facility] on 04/14/2025 General No Bruno Moreno, PT Note: [x] = goal MET [] = goal NOT MET [] Pt will be able to negotiate one flight of stair reciprocally [] Pt will be able to perform car transfers without UE support [] Pt will improve LOZOYA balance score to 52/26 documented as of this encounter Visit Diagnoses Diagnosis Gait abnormality- Primary Abnormality of gait Cerebral lesion Other conditions of brain documented in this encounter Care Teams Corporate Account Executive Relationship Specialty Start Date End Date Caitlyn Bowie MD [address] [place] [address] PCP - General Internal Medicine 12/10/24 documented as of this encounter
--- OUTSIDE RECORDS SUMMARY | 2025-05-17 23:59 | XMS_ITS | Continuity of Care Document ---
Author Organization [facility] Jana Andres ns [facility] Address [address] [facility], [address] [place] [address]- Care Team Providers Care Regional Education Coordinator Name Role Phone Not on Staff, PCP Primary Care Physician Unavail able En[facility] Date(s): [facility]/17/[facility] [facility] [address] [facility] [place] [address]- Attending Physician: Melissa Morrison Admitting Physician: Melissa Morrison Referring Physician: Melissa Morrison Encounter Type: Triage Allergies, Adverse Reactions, Alerts Substance Criticality Severity Reaction Reaction Severity Status ciprofloxacin Active gentamicin Active clindamycin throat tightening Active erythromycin Active penicillin 1 can tolerate amoxicillin Active vancomycin Active busPIRone Feeling of thro at tightness Headache Dizziness Active ipratropium Active morphine Active barium sulfate Activ e sulfa drugs Active iodinated radiocontrast dyes Active Voltaren Active Zithromax Active Flagyl Active Novocain Active Biaxin Active Gastrografin Active Levaquin Avocado Active Avelox Active Bee Stings Active Contrast Dye Active Mold Active Shrimp Active Avocado Active 1Allergy testing doen 09/26 was negative so unlikely she is allergic to this Immunizations Given and Recorded Vaccine Date Status Refusal Reason influenza virus vaccine, inactivated 06/12/24 Luis rded influenza virus vaccine, inactivated 05/13/23 Luis rded [...] a day Start Date: 09/06/19 Status: Ordered Medication Dispense Status: Completed Total Allowed Fills: 1 Fills Dispensed: 0 albuterol 0.083% inhalation solution 3 mL = 2.5 mg, Inhalation, Every 6 hours, PRN for wheezing, 0 Refills, Maintenance, 01/26/18 4:35:05PM EDT, Solution Start Date: 01/26/18 Status: Ordered Medication Dispense Status: Completed Total Allowed Fills: 1 Fills Dispensed: 0 chlorhexidine topical 0.12% liquid SWISH 10ML 2 TEASPOONFULS) IN MOUTH 3 TIMES DAILY THEN SPIT OUT. Start Date: 12/03/24 Status: Ordered Medication Dispense Status: Completed Total Allowed Fills: 1 Fills Dispensed: 0 ciclopirox 0.77% topical cream APPLY ONE APPLICATION EXTERNAL TWICE A DAY Start Date: 12/03/24 Status: Ordered Medication Dispense Status: Completed Total Allowed Fills: 1 Fills Dispensed: 0 diazepam 5 mg oral tablet See Instructions, TAKE ONE-HALF TABLET BY MOUTH FOUR TIMES A DAY NEEDED FOR ANXIETY AND SLEEP, #60 tablet, Refills 5, Tot. Refills 5, Maintenance, 06/29/24 2:59:00 PM EST, Instructions Replace Required Details, Route to Pharmacy Electronically, [facility], 160, cm, 05/17/23 14:04:00 EST, Height, 56.5, kg, 05/09/23 19:54:00 EDT, Dry Weight Start Date: 06/29/24 Status: Ordered Medication Dispense Status: Completed Quantity: 60.0 Unit: tablet Total Allowed Fills: 6 Fills Dispensed: 0 docusate sodium 100 mg oral tablet 2 tablet = 200 mg, By Mouth, 2 times a day, 0 Refills, Maintenance, 12/03/24 4:10:00 PM EDT, Tablet,Partial fill upon patient request if the prescription is for a schedule II opioid drug. Start Date: 12/03/24 Status: Ordered Medication Dispense Status: Completed Total Allowed Fills: 1 Fills Dispensed: 0 elderberry oral liquid 15 mL, By Mouth, Daily, 0 Refills, Maintenance, 03/22/22 10:25:00 AM EDT, ; Start Date: 03/22/22 Status: Ordered Medication Dispense Status: Completed Total Allowed Fills: 1 Fills Dispensed: 0 EPINEPHrine 0.3 mg injectable solution = 0.3 mg, Intramuscular, Once, PRN Anaphylactic Reaction Start Date: 04/21/21 Status: Ordered Medication Dispense Status: Completed Total Allowed Fills: 1 Fills Dispensed: 0 ferrous gluconate 324 mg oral tablet See Instructions, TAKE ONE TABLET BY MOUTH EVERY DAY WITH BREAKFAST, # 90 tablet, 2 Refills, Maintenance, 03/06/24 12:20:00 PM EDT, [facility], 158, cm, 12/28/23 11:04:00 EDT, Height, 60, kg, 12/19/23 11:49:00 EDT, Dry Weight Start Date: 03/06/24 Status: Ordered Medication Dispense Status: Completed Quantity: 90.0 Unit: tablet Total Allowed Fills: 1 Fills Dispensed: 0 fluticasone 50 mcg/inh nasal spray USE 2 SPRAYS INTRANALLY ONCE DAILY DIRECTED Start Date: 12/03/24 Status: Ordered Medication Dispense Status: Completed Total Allowed Fills: 1 Fills Dispensed: 0 folic acid 1 mg oral tablet 1 mg, 1, tablet, By Mouth, Daily, # 30 tablet, Refills 0, Maintenance, 06/20/24 11:31:00 AM EST, Partial fill upon patient request if the prescription is for a schedule II opioid drug. Start Date: 06/20/24 Status: Ordered Medication Dispense Status: Completed Quantity: 30.0 Unit: tablet Total Allowed Fills: 1 Fills Dispensed: 0 furosemide 40 mg oral tablet 80 mg, 2, tablet, By Mouth, 2 times a day Start Date: 12/03/24 Status: Ordered Medication Dispense Status: Completed Total Allowed Fills: 1 Fills Dispensed: 0 levothyroxine 25 mcg (0.025 mg) oral capsule 1 capsule = 25 mcg, By Mouth, Daily, Monday through Monday, Maintenance, 05/16/22 11:23:00 AM EST, Capsule, ; Start Date: 05/16/22 Status: Ordered Medication Dispense Status: Completed Total Allowed Fills: 1 Fills Dispensed: 0 levothyroxine 50 mcg (0.05 mg) oral capsule 1 capsule = 50 mcg, By Mouth, Daily, Monday & Monday's, Maintenance, 05/16/22 11:23:00 AM EST,; Start Date: 05/16/22 Status: Ordered Medication Dispense Status: Completed Total Allowed Fills: 1 Fills Dispensed: 0 Metoprolol Succinate ER 50 mg oral tablet, extended release 50 mg, 1, tablet, By Mouth, 2 times a day Start Date: 12/03/24 Status: Ordered Medication Dispense Status: Completed Total Allowed Fills: 1 Fills Dispensed: 0 Orthotics See Instructions, # 1 each, Maintenance, Molded orthotics for bilateral feet. Diagnosis: Arthritis of feet with pain, 10/20/22 4:39:00 PM EDT, Supply Start Date: 10/20/22 Status: Ordered Medication Dispense Status: Completed Quantity: 1.0 Unit: each Total Allowed Fills: 1 Fills Dispensed: 0 predniSONE 5 mg oral tablet = 2.5 mg, By Mouth, Every other day, 0 Refills, Maintenance, 04/20/23 8:55:00 AM EDT, Tablet, Partial fill upon patient request if the prescription is for a schedule II opioid drug. Start Date: 04/20/23 Status: Ordered Medication Dispense Status: Completed Total Allowed Fills: 1 Fills Dispensed: 0 rosuvastatin 10 mg oral tablet 1 tablet = 10 mg, By Mouth, Every Monday, Monday and Monday, Maintenance, 07/29/22 11:16:00 AM EST, Tablet, Partial fill upon patient request if the prescription is for a schedule II opioid drug. Start Date: 07/29/22 Status: Ordered Medication Dispense Status: Completed Total Allowed Fills: 1 Fills Dispensed: 0 Singulair 10 mg oral tablet 10 mg, 1, tablet, By Mouth, Daily in PM, Dr. Kelly, Refills 0, Maintenance, 08/24/17 1:50:25 PM EST Start Date: 08/24/17 Status: Ordered Medication Dispense Status: Completed Total Allowed Fills: 1 Fills Dispensed: 0 traZODone 50 mg oral tablet 100 mg, 2, tablet, By Mouth, Daily at bedtime, Dr. Kelly, # 30 tablet, Refills 0, Tot. Refills 0, Maintenance, 06/28/22 2:15:00 PM EST, Do Not Route, Partial fill upon patient request if the prescription is for a schedule II opioid drug. Start Date: 06/28/22 Status: Ordered Medication Dispense Status: Completed Quantity: 30.0 Unit: tablet Total Allowed Fills: 1 Fills Dispensed: 0 Triamcinolone Once, 0 Refills, Maintenance, 09/01/23 11:53:00 AM EST, Partial fill upon patient request if the prescription is for a schedule II opioid drug. Start Date: 09/01/23 Status: Ordered Medication Dispense Status: Completed Total Allowed Fills: 1 Fills Dispensed: 0 Ventolin HFA 108 mcg/inh inhalation aerosol with adapter 2 puffs, Inhalation, Every 6 hours, PRN Wheezing/Shortness of Breath, 0 Refills, Maintenance, 01/26/18 4:34:30 PM EDT, Aerosol Start Date: 01/26/18 Status: Ordered Medication Dispense Status: Completed Total Allowed Fills: 1 Fills Dispensed: 0 Vitamin C By Mouth, Daily, 0 Refills, Maintenance, 09/01/23 11:53:00 AM EST, Partial fill upon patient requestif the prescription is for a schedule II opioid drug. Start Date: 09/01/23 Status: Ordered Medication Dispense Status: Completed Total Allowed Fills: 1 Fills Dispensed: 0 warfarin 1 mg oral tablet See Instructions, TAKE 1 - 3 TABLETS BY MOUTH DAILY DIRECTED BY [facility], # 90 tablet, 11Refills, Maintenance, 07/30/24 4:36:00 PM EST, [facility], Partial fill upon patient request if the prescription is for a schedule II opioid drug., 158, cm, 07/16/24 13:20:00 EST, Height, 59, kg, 03/28/24 11:19:00 EDT, Dry Weight Start Date: 07/30/24 Status: Ordered Medication Dispense Status: Completed Quantity: 90.0 Unit: tablet Total Allowed Fills: 12 Fills Dispensed: 0 Zinc 0 Refills, Maintenance, 06/20/24 11:30:00 AM EST, Partial fill upon patient request if the prescription is for a schedule II opioid drug. Start Date: 06/20/24 Status: Ordered Medication Dispense Status: Completed Total Allowed Fills: 1 Fills Dispensed: 0 Problem List Condition Confirmation Course Effective Dates [...] with preserved ejection fraction (HFpEF) Confirmed Active Heterozygous Factor V Leiden mutation Confirmed Active S/P mitral valve clip implantation Confirmed Active Hyperlipidemia Confirmed Active HTN (hypertension) Confirmed Active Hypothyroidism Confirmed Active Insomnia Confirmed Active Mitral valve prolapse Confirmed Active Mitral regurgitation Confirmed Active Obstructive sleep apnea treated with BiPAP Confirmed Active Optic neuritis 1 Confirmed Active Osteoporosis Confirmed Active Platelet function defect Confirmed Active Radiation pneumonitis Confirmed Active SVT (supraventricular tachycardia) Confirmed Active 1left eye Social History Social History Type Response Smoking Status Never smoker; Tobacc o user in household: No entered on: 04/05/17 Sexual Orientation Self described orien tation: ; Straight or heterosexual Sex Sex Representation Female (finding) Patient Care team information Care Team Personnel Name: Val Wynne Position: [facility] Onco RN Member Role: Primary Care Nurse Name: Shilpi Mattson Position: Reference Physician Member Role: Primary Care Nurse Address: [address] [place] [address] Telecom: Name: Eben Hernandez NP Position: [facility] Associate Professional Member Role: Lifetime Consulting Provider Address: [address] [place] [address] [place]G Telecom: Name: Alejandrina Turner RN Position: [facility] RN Member Role: Primary Care Nurse Name: Zoraida Felix RN Position: [facility] ED RN W/OE and Tasks Member Role: Primary Care Nurse Name: Jaye Harley Position: [facility] MA Head Correction Officer Member Role: Order Desk Clerk Name: Daphne Hooker RN Position: [facility] RN Member Role: Primary Care Nurse Name: Marina Abdi Position: [facility] Outreach Member Role: Lifetime Consulting Physician Name: Kiki Abdi RN Position: [facility] RN Member Role: Primary Care Nurse Name: Marry Reza Position: [facility] RN Member Role: Primary Care Nurse Name: Veronica Hurst [place] Position: [facility] JAY Office Staff Member Role: Lifetime Consulting Physician Name: Maddie Herrera RN Position: [facility] SN RN Member Role: Primary Care Nurse Name: Yudith Herrera RN Position: [facility] Onco RN Member Role: Primary Care Nurse Name: Raegan Baptiste RN Position: [facility] RN Member Role: Primary Care Nurse Name: Svitlana Marcum RN Position: [facility] RN Member Role: Primary Care Nurse Name: Rubén Ashraf MD Position: [facility] Renal MD Member Role: Lifetime Consulting Physician Address: [address] [place] [address] [address] [facility] [place] [address]- Telecom: Name: She Pool RN Position: [facility] ED RN W/OE and Tasks Member Role: Primary Care Nurse Name: Kaila Latham RN Position: [facility] RN Member Role: Primary Care Nurse Name: Julio C Bahena RN Position: [facility] RN Member Role: Primary Care Nurse Name: Nasima Heredia RN Position: [facility] RN Member Role: Primary Care Nurse Name: Daphne Smiley RN Position: [facility] RN Member Role: Primary Care Nurse Name: Katherine Long RN Position: [facility] RN Member Role: Primary Care Nurse Name: Not on Staff, PCP Position: [facility] Physician (General Medicine) Member Role: PCP Name: Seven Kelly RN Position: [facility] RN Member Role: Primary Care Nurse Name: Fani Perez RN Position: [facility] RN Member Role: Primary Care Nurse Name: Hattie Brewster RN Position: [facility] RN Member Role: Primary Care Nurse Name: Kelly Hernandez RN Position: [facility] RN Member Role: Primary Care Nurse Name: Pallavi Wylie LPN Position: [facility] RN Member Role: Primary Care Nurse Care Team Related Persons Name: ZENAIDA FLORES Name: TIA RIVERS Name: JOHANN RETANA Insurance Providers Guarantor name: CINDA SHIRLEY [employer] Plan Information #: 1 Payer: MEDICARE B Payer Identifier: ANDER Member Number: [id number] Group Number: NA Subscriber Identifier: NA Relationship to Subscriber: self Coverage Type: NA Coverage Verification Date: NA Telecom: NA Address: [facility] Plan Information #: 2 Payer: MEDEX SECONDARY ONLY Payer Identifier: NA Member Number: [id number] Group Number: NA Subscriber Identifier: NA Relationship to Subscriber: self Coverage Type: Medicare Other Coverage Verification Date: NA Telecom: Address:
--- OUTSIDE RECORDS SUMMARY | 2025-05-17 23:59 | XMS_ITS | Continuity of Care Document ---
Author Organization [facility] Jana Andres ns [facility] Address [address] [facility] [place] [address]- Care Team Providers Care Cake Knocker Name Role Phone Not on Staff, PCP Primary Care Physician Unavail able [place] [facility] [place] [facility] [address] [facility] [place] [address]- Attending Physician: Arianna Sullivan Admitting Physician: Arianna Sullivan Referring Physician: Not on Staff, Referring MD Encounter Type: Pre-OutPatient One Time Allergies, Adverse Reactions, Alerts Substance Criticality Severity Reaction Reaction Severity Status ciprofloxacin Active ipratropium Active barium sulfate Activ e gentamicin Active clindamycin throat tightening Active erythromycin Active penicillin 1 can tolerate amoxicillin Active vancomycin Active busPIRone Feeling of thro at tightness Headache Dizziness Active morphine Active Biaxin Active sulfa drugs [...] Replace Required Details, Route to Pharmacy Electronically, [facility], 160, cm, 05/17/23 14:04:00 EST, [...] 2 Refills, Maintenance, 03/06/24 12:20:00 PM EDT, [facility], 158, cm, 12/28/23 11:04:00 EDT, [...] Physician Member Role: Primary Care Nurse Address: [address] [place] [address]- Telecom: Name: Eben Hernandez NP Position: [facility] Associate Professional Member Role: Lifetime Consulting Provider Address: [address] [place] [address]- Telecom: Name: Alejandrina Turner RN Position: [facility] RN Member Role: Primary Care Nurse Name: Zoraida Felix RN Position: [facility] ED RN W/OE and Tasks Member Role: Primary Care Nurse Name: Jaye Harley Position: [facility] Full Service Vending Driver Member Role: Presser And Blocker Knitted Goods Name: Daphne Hooker RN Position: [facility] RN Member Role: Primary Care Nurse Name: Marina Abdi Position: [facility] Outreach Member Role: Lifetime Consulting Physician Name: Kiki Abdi RN Position: [facility] RN Member Role: Primary Care Nurse Name: Marry Reza Position: [facility] RN Member Role: Primary Care Nurse Name: Veronica Hurst [place] Position: [facility] JAY Office Staff Member Role: Lifetime Consulting Physician Name: Maddie Herrera RN Position: [facility] SN RN Member Role: Primary Care Nurse Name: Yudith Herrera RN Position: [facility] Onco RN Member Role: Primary Care Nurse Name: Raegan Baptiste RN Position: [facility] RN Member Role: Primary Care Nurse Name: Svitlana Marcum RN Position: [facility] RN Member Role: Primary Care Nurse Name: Rubén Ashraf MD Position: [facility] Renal MD Member Role: Lifetime Consulting Physician Address: [address] [place], [place] [address] [place] [address]- Telecom: Name: She Pool RN Position: [facility] ED RN W/OE and Tasks Member Role: Primary Care Nurse Name: Kaila Latham RN Position: [facility] RN Member Role: Primary Care Nurse Name: Julio C Bahena RN Position: [facility] RN Member Role: Primary Care Nurse Name: Nasima Heredia RN Position: [facility] RN Member Role: Primary Care Nurse Name: Daphne Smiley RN Position: [facility] RN Member Role: Primary Care Nurse Name: Katherine Long RN Position: [facility] RN Member Role: Primary Care Nurse Name: Not on Staff, PCP Position: [facility] Physician (General Medicine) Member Role: PCP Name: Seven Kelly RN Position: [facility] RN Member Role: Primary Care Nurse Name: Fani Perez RN Position: [facility] RN Member Role: Primary Care Nurse Name: Hattie Brewster RN Position: [facility] RN Member Role: Primary Care Nurse Name: Kelly Hernandez RN Position: [facility] RN Member Role: Primary Care Nurse Name: Pallavi Wylie LPN Position: [facility] RN Member Role: Primary Care Nurse Care Team Related Persons Name: MARKZENAIDA Name: TIA RIVERS Name: JOHANN RETANA Insurance Providers Guarantor name: CINDA SHIRLEY [employer] [facility] Information #: 1 Payer: MEDICARE B Payer Identifier: ANDER Member Number: [id number] Group Number: NA Subscriber Identifier: [id number] Relationship to Subscriber: self Coverage Type: NA Coverage Verification Date: Telecom: Address: [facility] Information #: 2 Payer: MEDEX SECONDARY ONLY Payer Identifier: ANDER Member Number: [id number] Group Number: NA Subscriber Identifier: [id number] Relationship to Subscriber: self Coverage Type: Medicare Other Coverage Verification Date: Telecom: Address:
--- NOTE | ~2025-05-18 | XR_ITS ---
CLINICAL HISTORY: Chest pain, shortness of breath, rule out pneumoni 1 view chest x-ray Comparison: CR/SR - XR CHEST 2 VIEWS - 04/28/2025 01:24 PM EDT Findings: In addition to chronic changes within the left lung and diffuse interstitial prominence, there is new patchy right upper lobe opacity. Cardiac and mediastinal contours are stable. No acute fracture. IMPRESSION: Probable right upper lobe pneumonia. Additional chronic changes. This document has been electronically signed by: Srinivas Shaikh MD on 05/18/2025 10:55:09
--- NOTE | 2025-05-18 07:59 | ECG_ITS ---
Test Reason : CP Blood Pressure : */* mmHG Vent. Rate : 82 BPM Atrial Rate : 82 BPM P-R Int : 160 ms QRS Dur : 144 ms QT Int : 418 ms P-R-T Axes : 56 -55 57 degrees QTcB Int : 488 ms Normal sinus rhythm Right bundle branch block Left anterior fascicular block Bifascicular block Minimal voltage criteria for LVH, may be normal variant ( R in aVL ) Abnormal ECG When compared with ECG of 28-Apr-2025 12:08, No significant change was found Referred By: Generic ED Physician Electronically Signed By: Luis Eduardo Cadet
[2025-05-18 08:14] VITALS: BP 125/67; BP 130/62; PULSE 81; RESP 16; TEMP 36.8; O2SAT 99; BMI 25.3
--- NOTE | 2025-05-18 08:28 | ED.GENADULT ---
HPI - General Adult General Chief complaint: General Medical Stated complaint: SOB CHEST PAIN Time Seen by Provider: 05/18/25 08:27 Source: patient Mode of arrival: EMS Limitations: no limitations History of Present Illness ED Provider: Dr. Louie Ly HPI narrative: 80-year-old female with a history of antiphospholipid antibody syndrome on warfarin, chest pain, obstructive sleep apnea, COPD O2 dependent, complex regional pain syndrome, coronary artery disease, congestive heart failure anemia, DVT, PE, hypothyroidism, GERD, hypertension, tracheobronchitis, who presents emergency department for evaluation chest and back pain. Patient states she has been having right upper back pain for 3-4 days. She was seen by her staff reporter Dr. Kelly who started her on a prednisone taper and cefpodoxime 100 mg b.i.d. times 10 days. The patient states that despite taking these medications she is not feeling better. At 04:00 hours today the pain got worse. The patient points to her right upper back when asked to localize the pain She states that the pain is a constant pain which is worse with movement and worse with breathing. She states she has a chronic cough but she had 2 episodes of coughing up pink phlegm last week. She states she has chronic shortness of breath and dyspnea on exertion, but no worse than usual. She denied fever, chills, rhinorrhea, sore throat, nausea, vomiting, diarrhea. Patient states she has been compliant with her warfarin in her other medications. Related Data Home Medications ?Medication ?Instructions ?Recorded ?Confirmed CPAP (CPAP Machine/Device) 06/30/22 05/07/25 Oxygen Home Use 06/30/22 05/07/25 nebulizers 06/30/22 05/07/25 epinephrine 0.3 mg/0.3 mL 0.3 mg IM USEASDIRECTD PRN 07/14/22 05/07/25 injection, auto-injector Allergic Reaction levothyroxine 25 mcg tablet 50 mcg PO SUSA@0600 01/05/24 05/07/25 (Synthroid) docusate sodium 100 mg capsule 100 mg PO BID 01/14/24 05/07/25 ferrous gluconate 324 mg (38 mg 324 mg PO DAILY 01/16/25 05/07/25 iron) tablet folic acid 1 mg tablet 1 mg PO DAILY 01/16/25 05/07/25 levothyroxine 25 mcg tablet 25 mcg PO MOTUWETHFR@0600 01/16/25 05/07/25 (Synthroid) rosuvastatin 10 mg tablet 10 mg PO MOWEFR@2100 01/16/25 05/07/25 warfarin 1 mg tablet (Jantoven) See Rx Instructions .Route .COMPLEX 01/16/25 05/07/25 ascorbic acid (vitamin C) 250 mg 250 mg PO DAILY 04/23/25 05/07/25 tablet cetirizine 10 mg tablet (Zyrtec) 10 mg PO DAILY 04/23/25 05/07/25 cyanocobalamin (vitamin B-12) 50 50 mcg PO DAILY 04/23/25 05/07/25 mcg tablet (Vitamin B-12) riboflavin (vitamin B2) 25 mg 25 mg PO DAILY 04/23/25 05/06/25 tablet simethicone 80 mg chewable tablet 80 mg PO QIDWMHS PRN Abdominal 04/23/25 05/07/25 (Gas Relief (simethicone)) Discomfort zinc 50 mg capsule 50 mg PO DAILY 04/23/25 05/07/25 Previous Rx's ?Medication ?Instructions ?Recorded Advair HFA 230 mcg-21 2 puff inhalation BID 90 days #36 03/13/24 mcg/actuation aerosol inhaler grams (fluticasone propion-salmeterol) trazodone 50 mg tablet 100 mg (2 x 50 mg) PO BEDTIME #180 07/01/24 tabs meclizine 25 mg tablet 25 mg PO Q8H PRN dizziness 10 days 07/22/24 #30 tabs montelukast 10 mg tablet 10 mg PO DAILY #90 tabs 08/24/24 albuterol sulfate 90 mcg/actuation 2 inh inhalation Q6H PRN shortness 11/05/24 aerosol inhaler of breath or wheezing 90 days #3 ea fluticasone propionate 50 2 spray intranasal DAILY 90 days 11/05/24 mcg/actuation nasal #3 ea spray,suspension potassium chloride 20 mEq oral 20 meq PO DAILY 90 days #180 04/01/25 packet packets metoprolol succinate 50 mg 50 mg PO BID #180 tabs 04/08/25 tablet,extended release 24 hr (Toprol XL) furosemide 40 mg tablet 80 mg (2 x 40 mg) PO BID #360 tabs 10/02/25 prednisone 2.5 mg tablet 2.5 mg PO Q OTHER DAY #90 tabs 04/22/25 calcium carbonate (Antacid Ext Str 2.5 tab PO Q4H PRN Heartburn #14 04/26/25 (calcium carb)) tabs empagliflozin 10 mg tablet 10 mg PO DAILY #90 tabs 05/06/25 (Jardiance) diazepam 5 mg tablet 2.5 mg (1/2 x 5 mg) PO BID PRN 05/08/25 anxiety 15 days #30 tabs albuterol sulfate 2.5 mg/3 mL 2.5 mg (3 mL) inhalation BID 30 05/13/25 (0.083 %) solution for nebulization days #180 mL cefpodoxime 100 mg tablet 100 mg PO BID 10 days #20 tabs 05/16/25 prednisone 5 mg tablet See Rx Instructions PO DAILY 9 05/16/25 days #18 tabs oxycodone 5 mg tablet 5 mg PO Q6H PRN pain #10 tabs 05/18/25 Allergies Allergy/AdvReac Type Severity Reaction Status Date / Time morphine Allergy Severe Itching Verified 05/18/25 08:18 avocado (AVOCADO) Allergy Mild ITCHY Verified 05/18/25 08:18 THROAT, RASH azithromycin (AZITHROMYCIN) Allergy Mild ITCHY Verified 05/18/25 08:18 THROAT, RASH barium iodide (BARIUM IODIDE) Allergy Mild ITCHY Verified 05/18/25 08:18 THROAT, RASH barium sulfate Allergy Mild Itch Verified 05/18/25 08:18 bee pollen (BEE STINGS) Allergy Mild ITCHY Verified 05/18/25 08:18 THROAT, RASH ciprofloxacin (From CIPRO) Allergy Mild ITCHY Verified 05/18/25 08:18 THROAT, RASH clarithromycin (From BIAXIN) Allergy Mild ITCHY Verified 05/18/25 08:18 THROAT, RASH diatrizoate meglumine (From Allergy Mild ITCHY Verified 05/18/25 08:18 GASTROGRAFIN) THROAT, RASH diatrizoate sodium (From Allergy Mild ITCHY Verified 05/18/25 08:18 GASTROGRAFIN) THROAT, RASH diclofenac (From VOLTAREN) Allergy Mild ITCHY Verified 05/18/25 08:18 THROAT, RASH erythromycin base Allergy Mild ITCHY Verified 05/18/25 08:18 (ERYTHROMYCIN BASE) THROAT, RASH gentamicin (GENTAMICIN) Allergy Mild ITCHY Verified 05/18/25 08:18 THROAT, RASH Iodinated Contrast Media Allergy Mild ITCHY Verified 05/18/25 08:18 (IVP DYE) THROAT, RASH levofloxacin (From LEVAQUIN) Allergy Mild ITCHY Verified 05/18/25 08:18 THROAT, RASH metronidazole (From FLAGYL) Allergy Mild ITCHY Verified 05/18/25 08:18 THROAT, RASH moxifloxacin (From AVELOX) Allergy Mild ITCHY Verified 05/18/25 08:18 THROAT, RASH Penicillins (PENICILLINS) Allergy Mild ITCHY Verified 05/18/25 08:18 THROAT, RASH shrimp (SHRIMP) Allergy Mild ITCHY Verified 05/18/25 08:18 THROAT, RASH Sulfa (Sulfonamide Allergy Mild ITCHY Verified 05/18/25 08:18 Antibiotics) (SULFA THROAT, (SULFONAMIDE ANTIBIOTICS)) RASH vancomycin (VANCOMYCIN) Allergy Mild ITCHY Verified 05/18/25 08:18 THROAT, RASH clindamycin AdvReac Intermediate Unknown Verified 05/18/25 08:18 spironolactone AdvReac Intermediate diarrhea Verified 05/18/25 08:18 Review of Systems Review of Systems: Yes all other systems are reviewed and are negative PMFSH Past Medical History Medical History (Updated 05/19/25 @ 10:34 by Louie Ly MD) Anti-phospholipid antibody syndrome Chest pain Chest pain Ankle pain Chronic hypercapnic respiratory failure KANDY treated with BiPAP COPD (chronic obstructive pulmonary disease) Open wound Warfarin anticoagulation Complex sleep apnea syndrome Leg pain Anemia Tachycardia DVT (deep venous thrombosis) Compression fracture of body of thoracic vertebra ASD (atrial septal defect) Pleuritic chest pain History of COVID-19 Chronic anticoagulation Hypothyroidism GERD (gastroesophageal reflux disease) Hyperlipidemia Hypertension Factor 5 Leiden mutation, heterozygous History of non-ST elevation myocardial infarction (NSTEMI) Hypoxia Anxiety PTSD (post-traumatic stress disorder) Hemoptysis Dyspnea Tracheobronchitis CLARA positive Diverticulitis Allergic bronchitis (HFpEF) heart failure with preserved ejection fraction Subarachnoid bleed Insomnia Hypogammaglobulinemia Chronic respiratory failure Arterial insufficiency of lower extremity Complex regional pain syndrome i of right lower limb Post herpetic neuralgia Pulmonary hypertension Pericardial effusion Pulmonary emboli Pleural effusion Radiation fibrosis of lung Pneumonitis Pulmonary nodules Lung cancer Surgical History History of colonoscopy History of lung surgery History of tonsillectomy History of hysterectomy S/P mitral valve clip implantation History of cardiac cath Family History Family History Sister No problems noted. Mother Cardiovascular disease Daughter Tachycardia Other KANDY (obstructive sleep apnea) Social History Social History Household Members: None Housing: House Do you presently have visiting nurse or other home services: No Alcohol intake: never Comment: stand by assist with ambulation Patient Tobacco Use Status: Never used Tobacco e-Cigarette/Vaping Use: Never Used Second Hand Smoke Exposure: No Advance Directives Date on File: 06/15/22 service: No Current occupational status: retired Physical Exam ED Vital Signs: Vital Signs - 24 hr 05/18/25 13:10 05/18/25 13:12 05/18/25 15:09 Temperature 98.2 F Pulse Rate 87 87 Respiratory Rate 15 15 Blood Pressure 108/51 L 108/51 L 108/51 L Pulse Oximetry 96 96 Oxygen Delivery Method Nasal Cannula Nasal Cannula Oxygen Flow Rate 2 2 BMI result Body Mass Index 25.3 Vital signs were normal. Exam: General: Awake, alert in no distress Head: Normocephalic, atraumatic EENT: PERRL, sclera and conjunctiva are normal, mouth with no erythema or exudates Neck: Supple, no adenopathy Lung: breath sounds symmetric, no wheezing, no rales and no rhonchi Chest: symmetric movement, nontender Heart: regular rate and rhythm, normal S1, S2 no murmurs or rubs Abdomen: soft, non-tender, nondistended, normal bowel sounds Back: no vertebral tenderness, tenderness palpation of her right upper back paraspinal muscles, no CVAT Extremities: no deformities, moves all extremities symmetrically, no edema Neuro: Awake, alert, oriented, normal speech, cranial nerves 2-12 intact, moves all extremities symmetrically Psych: Pleasant, cooperative Medications Administered Discontinued Medications Generic Name Dose Route Start Last Admin Trade Name Freq PRN Reason Stop Dose Admin Furosemide 80 mg 05/18/25 12:14 05/18/25 13:12 Furosemide 40 Mg Tablet PO 05/18/25 12:15 80 mg ONCE ONE Administration Protocol Pat Own (Cefpodoxime 100 mg 05/18/25 12:30 05/18/25 13:12 100 Mg Tablet) PO 100 mg BID MATHEW Administration Oxycodone HCl 5 mg 05/18/25 12:14 05/18/25 13:11 Oxycodone Hcl Immed Release 5 Mg Tablet PO 05/18/25 12:15 5 mg ONCE STA Administration Potassium Chloride 20 meq 05/18/25 12:14 05/18/25 13:11 Potassium Chloride Er 20 Meq Tab.Er.Prt PO 05/18/25 12:15 20 meq ONCE ONE Administration Medical Decision Making Medical Decision Making MDM Narrative: 80-year-old female with a history of antiphospholipid antibody syndrome on warfarin, chest pain, obstructive sleep apnea, COPD O2 dependent, complex regional pain syndrome, coronary artery disease, congestive heart failure anemia, DVT, PE, hypothyroidism, GERD, hypertension, tracheobronchitis, who presents emergency department for evaluation chest and back pain. Patient states she has been having right upper back pain for 3-4 days. She was seen by her staff reporter Dr. Kelly who started her on a prednisone taper and cefpodoxime 100 mg b.i.d. times 10 days. The patient states that despite taking these medications she is not feeling better. At 04:00 hours today the pain got worse. The patient points to her right upper back when asked to localize the pain She states that the pain is a constant pain which is worse with movement and worse with breathing. She states she has a chronic cough but she had 2 episodes of coughing up pink phlegm last week. She states she has chronic shortness of breath and dyspnea on exertion, but no worse than usual. She denied fever, chills, rhinorrhea, sore throat, nausea, vomiting, diarrhea. Vital signs were normal. Physical examination was unremarkable except for tenderness palpation of her right upper thoracic back. Differential diagnosis: ?Includes but is not limited to musculoskeletal, costochondritis, pain, pleurisy, pulmonary embolism pneumonia, anemia, electrolyte abnormalities Course: My independent interpretation patient's laboratory evaluation is as follows: WBC elevated 19,000-patient just started prednisone. Chronic microcytic anemia with an H&H of 11.4 and 35.6 with a MCV of 102.3. INR is therapeutic at 1.5-patient , reports that her provider tries to keep her in the therapeutic range of 1.5-2.0 therefore I do not think that she has a pulmonary embolism. Potassium was low 3.0. BUN elevated 22 with a normal creatinine. Glucose elevated 119. BNP is elevated 1224. PH elevated 7.68 with a low pCO2 of 26 consistent with respiratory alkalosis. Patient's chest x-ray did reveal a very subtle right upper lobe infiltrate compared to a previous x-ray. I do not think that this has a significant pneumonia and the patient is on cefpodoxime 100 mg b.i.d. times 10 days which should cover typical and atypical pneumonias. I did discuss this with the patient. Patient takes potassium chloride extended release 20 mEq daily and she was given a dose of this here in the emergency department advised to continue taking your medications as prescribed. Patient missed her morning dose of furosemide therefore she was given 80 mg orally here in the emergency department. Patient was allowed to take her own cefpodoxime orally since this has non formulary here. The patient's pain most likely is related to her pneumonia and she was given oxycodone 10 mg orally. She was given a prescription for oxycodone 10 mg every 6 hours as needed for pain. She was given a dose of oxycodone here in the emergency department with improvement of her discomfort. The patient is oxygen dependent and will need to be transferred back home via ambulance. Differential Diagnosis Differential Diagnoses: The differential diagnosis associated with the presentation includes (See above) Admission/Observation Consideration of admission/observation: Escalation of care including admission/observation considered (Yes) Lab Data MDM Lab Attestation statement: I reviewed the patient's lab results. 05/18/25 09:09 05/18/25 09:09 Labs: Lab Results 05/18/25 05/18/25 Range/Units 09:09 09:15 WBC 19.0 H (4.8-10.8) X10*3/uL RBC 3.48 L (4.20-5.50) X10*6/uL Hgb 11.4 L (12.0-16.0) g/dl Hct 35.6 L (37.0-47.0) % MCV 102.3 H (80.0-98.0) fL MCH 32.8 (27.0-33.0) pg MCHC 32.0 (31.0-35.0) g/dl RDW 13.9 (11.0-16.0) % Plt Count 207 (160-400) X10*3/uL MPV 11.0 (9.4-12.3) fL Immature Gran % (Auto) 0.9 H (0.0-0.4) % Neut % (Auto) 89.2 H (45-73) % Lymph % (Auto) 3.4 L (20-40) % [place] % (Auto) 5.8 (2-11) % Eos % (Auto) 0.3 (0-4) % Baso % (Auto) 0.4 (0-2) % Lymph # (Auto) 0.7 L (1.2-4.9) X10*3/uL [place] # (Auto) 1.1 (0.1-1.2) X10*3/uL Eos # (Auto) 0.1 (0.0-0.4) X10*3/uL Baso # (Auto) 0.1 (0.0-0.2) X10*3/uL Abs Immat Gran (auto) 0.17 H (0.00-0.03) X10*3/uL Absolute Neuts (auto) 16.9 H (2.0-8.3) x10*3/uL Absolute Nucleated RBC 0.000 (0.0-0.012) X10*3/uL Nucleated RBC % (auto) 0.0 (0.0-0.2) /100WBC PT 18.3 H (11.2-13.5) SEC INR 1.5 H (0.9-1.1) APTT 37.6 H (26.7-34.1) SEC VBG pH 7.68 H* (7.32-7.43) VBG pCO2 26 mmHg VBG pO2 139 mmHg VBG HCO3 31 H (22-26) mmol/L VBG O2 Saturation 99.0 % VBG Base Excess 11.4 mmol/L Sodium 138 (135-145) mmol/L Potassium 3.0 L D (3.3-5.1) mmol/L Chloride 100 (96-108) mmol/L Carbon Dioxide 27 (22-29) mmol/L Anion Gap 14 (12-20) BUN 22 H (9-16) mg/dL Creatinine 0.80 (0.5-1.4) mg/dL Estim Creat Clear Calc 45.3 Estimated GFR > 60 Random Glucose 119 H (60-115) mg/dL Lactic Acid 1.0 (0.5-2.0) mmol/L Calcium 10.2 (8.4-10.2) mg/dL Magnesium 2.9 H (1.6-2.6) mg/dL Total Bilirubin 0.6 (0.0-1.0) mg/dL AST 27 (5-31) U/L ALT 19 (0-31) U/L Alkaline Phosphatase 64 (39-117) U/L Troponin I High Sens 15.1 (<3.5-17.0) ng/L NT-Pro-B Natriuret Pep 1224.0 H (<300) pg/mL Total Protein 6.9 (6.5-8.0) g/dL Albumin 3.9 (3.5-5.0) g/dL Lipase 23 (8-78) U/L Influenza Type A (PCR) NEGATIVE (Negative) Influenza Type B (PCR) NEGATIVE (Negative) RSV RNA Qual (PCR) NEGATIVE (Negative) SARS-CoV-2 RNA (RT-PCR) NEGATIVE (Negative) Independent Interpretation I performed an independent interpretation of an: EKG and Plain X-Ray Interpretation: One-view chest x-ray concerning for possible right upper lobe infiltrate-very subtle but new compared to previous chest x-ray 12 EKG revealed a normal sinus rhythm rate of 82, normal IL interval, prolonged QRS duration of 144 milliseconds, prolonged QTC of 488 milliseconds, right bundle-branch block, no ST segment elevation, no ST segment depression, inverted T-waves V1 and V2. Compared to EKG dated 04/28/2025 no significant change. Compared to EKG dated 04/28/2025 at 12:08 hours, no significant change Radiology Impression Discussion of test interpretation with radiology: I have reviewed the radiologist's reading. Radiologist Impression: 1 view chest x-ray Comparison: CR/SR - XR CHEST 2 VIEWS - 04/28/2025 01:24 PM EDT Findings: In addition to chronic changes within the left lung and diffuse interstitial prominence, there is new patchy right upper lobe opacity. Cardiac and mediastinal contours are stable. No acute fracture. IMPRESSION: Probable right upper lobe pneumonia. Additional chronic changes. This document has been electronically signed by: Srinivas Shaikh MD on 05/18/2025 10:55:09 External Record Review External record reviewed: Inpatient record and Office record Prescription Management I considered prescription management with: Pain Medication (Prescribed oxycodone) Chronic Conditions Patient?s care impacted by: Other (COPD, congestive heart failure, anti phospholipid antibody syndrome) Discharge Plan Discharge Clinical Impression: Diuretic-induced hypokalemia Pneumonia Qualifiers: Pneumonia type: due to unspecified organism Laterality: right Lung location: upper lobe of lung Qualified Code(s): J18.9 - Pneumonia, unspecified organism Chest pain Qualifiers: Chest pain type: unspecified Qualified Code(s): R07.9 - Chest pain, unspecified Patient Disposition: Home, Self-Care Instructions: Community Acquired Pneumonia (ED) Additional Instructions: Your INR was therapeutic at 1.5. Your chest x-ray revealed a very subtle pneumonia in the right upper lobe of your lung, this may explain your chest pain. At this time I do not think that you have a pulmonary embolism as the cause of your chest pain since your INR is therapeutic. Your potassium was slightly low at 3.0. You were given potassium here in the emergency department, continue taking your potassium as prescribed. Continue taking your cefpodoxime and prednisone as prescribed by Dr. Kelly and finish the whole course. Take oxycodone 5 mg pills, 1 pill every 4 hours as needed for pain. Do not drive or work while taking this medication since they can cause sleepiness. Oxycodone is a narcotic medication that can be addicting. If you are concerned about addiction you can ask the pharmacist for less pills or do not get this prescription filled. Follow-up with your doctor in 2 days. Please return to the emergency department if your symptoms get worse or if you develop any symptoms that are concerning to you. Prescriptions: New oxycodone 5 mg tablet 5 mg PO Q6H PRN (Reason: pain) Qty: 10 0RF Rx Instructions: Partial Fill upon patient request. No Action Advair HFA 230-21 mcg/actuation HFA aerosol inhaler 2 puff inhalation BID 90 Days Qty: 36 4RF trazodone 50 mg tablet 100 mg PO BEDTIME Qty: 180 3RF meclizine 25 mg tablet 25 mg PO Q8H PRN (Reason: dizziness) 10 Days Qty: 30 0RF montelukast 10 mg tablet 10 mg PO DAILY Qty: 90 3RF albuterol sulfate 90 mcg/actuation HFA aerosol inhaler 2 inh inhalation Q6H PRN (Reason: shortness of breath or wheezing) 90 Days Qty: 3 3RF fluticasone propionate 50 mcg/actuation spray,suspension 2 spray intranasal DAILY 90 Days Qty: 3 3RF potassium chloride 20 mEq packet 20 meq PO DAILY 90 Days Qty: 180 3RF metoprolol succinate [Toprol XL] 50 mg tablet extended release 24 hr 50 mg PO BID Qty: 180 3RF furosemide 40 mg tablet 80 mg PO BID Qty: 360 3RF prednisone 2.5 mg tablet 2.5 mg PO Q OTHER DAY Qty: 90 3RF diazepam 5 mg tablet 2.5 mg PO BID PRN (Reason: anxiety) 15 Days Qty: 30 3RF albuterol sulfate 2.5 mg /3 mL (0.083 %) solution for nebulization 2.5 mg inhalation BID 30 Days Qty: 180 11RF levothyroxine [Synthroid] 25 mcg Tablet 50 mcg PO SUSA@0600 docusate sodium 100 mg Capsule 100 mg PO BID levothyroxine [Synthroid] 25 mcg tablet 25 mcg PO MOTUWETHFR@0600 folic acid 1 mg tablet 1 mg PO DAILY rosuvastatin 10 mg tablet 10 mg PO MOWEFR@2100 warfarin [Jantoven] 1 mg tablet See Rx Instructions .ROUTE .COMPLEX Rx Instructions: 1mg tablet, take 1 - 3 tabs daily depending on clinic instructions and INR checks ferrous gluconate 324 mg (38 mg iron) tablet 324 mg PO DAILY riboflavin (vitamin B2) 25 mg Tablet 25 mg PO DAILY Vitamin B-12 50 mcg Tablet 50 mcg PO DAILY ascorbic acid (vitamin C) 250 mg Tablet 250 mg PO DAILY zinc 50 mg Capsule 50 mg PO DAILY simethicone [Gas Relief (simethicone)] 80 mg tablet,chewable 80 mg PO QIDWMHS PRN (Reason: Abdominal Discomfort) cetirizine [Zyrtec] 10 mg Tablet 10 mg PO DAILY Antacid Ext Str (calcium carb) 300 mg (750 mg) Tablet,Chewable 2.5 tab PO Q4H PRN (Reason: Heartburn) Qty: 14 0RF (DME) nebulizers Misc See Rx Instructions .Route Rx Instructions: As directed (DME) CPAP Machine/Device Device See Rx Instructions .Route Rx Instructions: As directed (DME) Oxygen Home Use Kit See Rx Instructions .Route Rx Instructions: As directed epinephrine 0.3 mg/0.3 mL auto-injector 0.3 mg IM USEASDIRECTD PRN (Reason: Allergic Reaction) Jardiance 10 mg tablet 10 mg PO DAILY Qty: 90 1RF cefpodoxime 100 mg tablet 100 mg PO BID 10 Days Qty: 20 0RF Rx Instructions: must administer with a meal/food prednisone 5 mg tablet See Rx Instructions PO DAILY 9 Days Qty: 18 0RF Rx Instructions: orally daily; Take 3 tabs daily x 3 days, then 2 tabs daily x 3 days, then 1 tab daily x 3 days Interventions: ED Discharge Assessment Last Done: 05/18/25 15:09 Discharge Date/Time: 05/18/25 15:10 Print Language: Setswana
--- OUTSIDE RECORDS SUMMARY | 2025-05-18 08:29 | XMS_ITS | Encounter Summary ---
Author Organization [facility] Address [address] [place] [address] Phone Care Team Providers Care Event Management Consultant Name Role Phone Caitlyn Bowie MD Primary Care Provider [phone]- [phone] Encounter Details Date Type Department Care Team (Late Contact Info) Description 03/17/2025 Documentation Only [facility] [address] [place] [address] Marina Abdi [address] [place] [address] Social History Tobacco Use Types [...] Visit [facility] [address] [place] [address] Rubén Ashraf MD [address] [place] [address] [place] [address] documented as of this encounter Visit Diagnoses Not on filedocumented in this encounter Care Teams Event Management Consultant Relationship Specialty Start Date End Date Caitlyn Bowie MD [address] [place], [place] PCP - General Internal Medicine 09/24/24 documented as of this encounter
--- OUTSIDE RECORDS SUMMARY | 2025-05-18 08:29 | XMS_ITS | Clinical Summary ---
Author Organization [facility] Address [address] [place] [address] Care Team Providers Care Tumor Registrar Name Role Phone Caitlyn Bowie MD Primary Care Provider [phone]- [phone] Allergies Active Allergy Reactions Criticality Noted Date [...] Breath High 05/09/2008 Bronchospasm or Wheezing Ipratropium [place] Unknown/Patient and Family Unable to Define Medium [...] 1 capsule by mouth daily. Active B Mkxynho-C-Woqwt Acid (STRESS 500 B-COMPLEX PO) Take 1 [...] Department Care Team Description 03/14/2025 Scanned Document [facility] [address] [id number] Shirley Chaidez PA-C from Last 3 Months [...] & B MEDICARE PART A & B [facility] Care Teams Tumor Registrar Relationship Specialty Start Date End Date Caitlyn Bowie MD [address] [place] [address] PCP - General Internal Medicine 03/20/23
--- OUTSIDE RECORDS SUMMARY | 2025-05-18 08:30 | XMS_ITS | Data Portability ---
Author Organization [place] [facility] Address [address] [place] [address] Care Team Providers Care Data Entry Representative Name Role Phone DEVENDRA EVELIN Primary Care [...] 911 activated Plan/Discussion: EMS handoff given to [facility] In order to obtain further information and compare any laboratory results/values, I have accessed old patient records. This information was pertinent in my medical decision making today. [email or web address] Not available 03/14/2021 13:20:46 07/18/2021 07/18/2021 Overview/History [...] as of yet. -She is educated to pickle cutter stool softeners to help promote BM -She [...] I have accessed patient records on the [employer] and old patient records. This [...] after care of this [facility]. Time On Scene [...] noting blood on her pillow approximately [address] [place] when she woke this morning. She has [...] after care of this patient according to [facility]'s infection prevention protocols. [email or web address] Not available 12/29/2021 14:43:37 Plan of Treatment Reminders Order Date Submit Date Provider Last Modified By Organization Details Last Modified Time Details Appointments None recorded. Lab None recorded. Referral None recorded. Procedures None recorded. Surgeries None recorded. Imaging None recorded. Medication Orders docusate sodium 100 mg capsule 2021 022 lnovia [id number], [address] [facility], [place], [address], 19:28:14 Patient TargetsNo targets recorded. Patient Instructions Encounter Date Encounter Id Patient Instructions Last Modified By Organization Details Last Modified Time 03/14/2021 [id number] Thank you for yo ur visit with [facility] today. You were seen today for abdominal [...] in your condition between 8am-10pm, please [facility] at [phone] to help navigate your care. [email or web address] Not available 03/14/2021 12:46:32 10/18/2021 [id number] It was great to see you today! Thank you for letting [facility] assist [...] follow up with your PCP please contact [facility] for re-evaluation. Please present to the [...] 1.2 0.9-1. 2 Not Available [facility] [address] [facility], [place], [address], 02/11/2021 16:58:14 02/12/20 21 02/11/2021 , sylvia vance lower extre mity No observ ation record ed. [address] (Imaging) [address] [place], [address], 02/12/2021 08:19:41 Result Notes None recorded. Problems Name Problem SNOMED Code Status Onset Date Resolution Date Notes Provider Name and Address Organization Details Recorded Time Chronic obstructive pulmonary disease 50841617 Active 2018 ARCELIA PATELALON WINSTON [address], [place], [address], [place] [facility] 9 12:59:21 Problem Notes None recorded. Procedures Surgical History Date Name Laterality Status Provider Name and Address Organization Details Recorded Time Total Hysterectomy completed Cristine Sidhu, ALON [address], [place], [address], [place] [facility] 10/18/2021 19:39:45 lobectomy of lung completed Cristine frazier, INTERNAL COMMUNICATIONS WRITER [address], [place], [address], [place] [facility] 10/18/2021 19:40:05 Remove tonsils and adenoids completed Cristine Sidhu, ALON [address], [place], [address], [place] [facility] 10/18/2021 19:40:22 Imaging Results None recorded. Procedure Notes None recorded. Medical Equipment None Reported. Allergies Allergen ID Allergen Name Allergen Category Reaction Reaction Severity Criticality Documentation Date Start Date Code Code System Note Provider Name and Address Organization Details Recorded Time 92235 Product containin g penicilli n (product) medicatio n Not available Not available Not available 06/15/2019 46544 8001 SNOMED ARCELIA AMANDAALON WINSTON [address], [place], [address], [place] [facility] 9 12:56:48 71875 Substance with sulfonami de structure and antibacte rial mechanism of action (substanc e) medicatio n Not available Not available Not available 06/15/2019 64057 8003 SNOMED ARCELIA AMANDAALON WINSTON [address], [place], [address], [place] [facility] 9 12:56:54 29685 Voltaren medicatio n Not available Not available Not available 06/15/201969519 6 RxNorm ARCELIA FAJARDO , INTERNAL COMMUNICATIONS WRITER [address], [place], [address], [place] [facility] 9 12:57:01 89089 Iodinated contrast media (substanc e) medicatio n Not available Not available Not available 06/15/2019 67157 2004 SNOMED ARCELIA FAJARDO , INTERNAL COMMUNICATIONS WRITER [address], [place], [address], [place] [facility] 9 12:57:07 10531 vancomyci n medicatio n Not available Not available Not available 06/15/2019 02898 RxNorm ARCELIA FAJARDO , INTERNAL COMMUNICATIONS WRITER [address], [place], [address], [place] [facility] 9 12:57:14 21575 gentamici n medicatio n Not available Not available Not available 06/15/2019 41701 50 RxNorm ARCELIA FAJARDO , INTERNAL COMMUNICATIONS WRITER [address], [place], [address], [place] [facility] 9 12:57:20 54405 Biaxin medicatio n Not available Not available Not available 06/15/201990262 9 RxNorm ARCELIA FAJARDO , INTERNAL COMMUNICATIONS WRITER [address], [place], [address], [place] [facility] 9 12:57:27 65675 Avelox medicatio n Not available Not available Not available 06/15/2019 60958 6 RxNorm ARCELIA FAJARDO , INTERNAL COMMUNICATIONS WRITER [address], [place], [address], [place] [facility] 9 12:57:34 91837 erythromy jaylon medicatio n Not available Not available Not available 06/15/2019 4053 RxNorm ARCELIA FAJARDO , INTERNAL COMMUNICATIONS WRITER [address], [place], [address], [place] [facility] 9 12:57:41 99179 Zithromax medicatio n Not available Not available Not available 06/15/2019 84813 4 RxNorm ARCELIA FAJARDO , INTERNAL COMMUNICATIONS WRITER [address], [place], [address], [place] [facility] 9 12:57:51 27863 Levaquin medicatio n Not available Not available Not available 06/15/2019 90194 2 RxNorm ARCELIA FAJARDO , INTERNAL COMMUNICATIONS WRITER [address], [place], [address], [place] [facility] 9 12:58:02 65195 Cipro medicatio n Not available Not available Not available 06/15/2019 12146 3 RxNorm ARCELIA FAJARDO , INTERNAL COMMUNICATIONS WRITER [address], [place], [address], [place] [facility] 9 12:58:08 50298 morphine medicatio n Not available Not available Not available 06/15/2019 7052 RxNorm ARCELIA FAJARDO , INTERNAL COMMUNICATIONS WRITER [address], [place], [address], [place] [facility] 9 12:58:20 86760 procaine hydrochlo ride medicatio n Not available Not available Not available 06/15/2019 00515 8 RxNorm ARCELIA FAJARDO , INTERNAL COMMUNICATIONS WRITER [address], [place], [address], [place] [facility] 9 12:58:42 56771 barium sulfate medicatio n Not available Not available Not available 06/15/2019 1331 RxNorm ARCELIA FAJARDO , INTERNAL COMMUNICATIONS WRITER [address], [place], [address], [place] [facility] 9 12:58:54 28410 Gastrogra fin medicatio n Not available Not available Not available 06/15/2019 19620 5 RxNorm ARCELIA FAJARDO , INTERNAL COMMUNICATIONS WRITER [address], [place], [address], [place] [facility] 9 12:59:01 23546 Flagyl medicatio n Not available Not available Not available 06/15/2019 47902 6 RxNorm ARCELIA FAJARDO , INTERNAL COMMUNICATIONS WRITER [address], [place], [place], [address], [place] [facility] 9 12:59:06 42071 shrimp allergeni c extract food Not available Not available Not available 06/15/2019 35608 2 RxNorm ARCELIA FAJARDO , INTERNAL COMMUNICATIONS WRITER [address], [place], [place], [address], [place] [facility] [...] /min 98.9 [degF] 112/58 mm[Hg] Not Available [facility] 11:16:01 Date Recorded Heart rate Oxygen saturation Oxygen saturation in Arterial blood by Pulse oximetry Respiratory rate Body temperature Systolic And Diastolic Systolic And Diastolic Provider Name and Address Organization Details Last Updated DateTime 2 80 /min 96 % 96 % 18 /min 98.9 [degF] 142/66 mm[Hg] 128/60 mm[Hg] Not Available [facility] 20:16:17 Date Recorded Oxygen saturation Oxygen saturation in Arterial blood by Pulse oximetry Heart rate Respiratory rate Body temperature Systolic And Diastolic Provider Name and Address Organization Details Last Updated DateTime 2 96 % 96 % 77 /min 18 /min 98.6 [degF] 122/60 mm[Hg] Not Available [facility] 2 13:41:00 Date Recorded Heart rate Respiratory rate Oxygen saturation Oxygen saturation in Arterial blood by Pulse oximetry Body temperature Systolic And Diastolic Provider Name and Address Organization Details Last Updated DateTime 1 76 /min 16 /min 97 % 97 % 99 [degF] 114/62 mm[Hg] Not Available [facility] 1 12:53:01 Social History Question Answer Notes LastModified by Organizat ion Details LastModified Time Tobacco Smoking Status Never Smoker ARCELIA FAJARDO, ALON [address] [place], [address], [place] [facility] 06/15/2019 13:05:25 Do You [...] ICD10 Code Diagnosis IMO Codes Diagnosis Note [id number] ARCELIA FAJARDO NP [facility] [address] [place] [address] 06/15/2019 12:54:37 06/17/2019 13:06:33 Excoriation of skin 754361652 T14.8XXA [id number] JANIS GILBERT NP [facility] [address] [place] [address] 11/13/2019 16:03:00 11/18/2019 14:53:37 Pain in lower limb 33754508 M79.661 [id number] ARCELIA FAJARDO NP [facility] [address] [place] [address] 03/14/2020 20:02:43 03/18/2020 21:30:46 Traumatic hematoma 967518222 T14.8XXA Long-term current use of anticoagulant 873672943 Z79.01 Pain in left foot 587255 9531 72843 M79.672 [id number] EMELIA TOMPKINS [facility] [address] [place] [address] 03/20/2020 12:50:59 03/23/2020 17:54:28 Contusion of lower leg 96535176 S80.10XA Swelling of lower leg 44 9509352 R22.42 [id number] JAMES GARCIA NP [facility] [address] [place] [address] 09/29/2020 11:41:21 09/29/2020 12:38:57 Pain of intercostal space 310502624 R07.82 Exposure t o communicable disease 965920880 Z20.822 [id number] Waleska Matos NP [facility] [address] [place] [address] 02/11/2021 16:34:32 02/12/2021 11:08:44 Hematoma of lower leg 910556594 S80.11XA [id number] JAMES GARCIA NP [facility] [address] [place] [address] 03/14/2021 12:45:30 03/19/2021 14:09:43 Abdominal pain 94226778 R10.9 [id number] EMELIA Alfonso [facility] [address] [place] [address] 07/18/2021 10:56:56 07/22/2021 23:43:22 Constipation 35688855 K59.00 Left lower quadrant pain 018068617 R10.32 [id number] Cristine Sidhu NP [facility] [address] [place] [address] 10/18/2021 19:17:00 11/10/2021 16:33:03 Left sided abdominal pain 365687242 R10.9 Hematoma of lower leg 44 9097400 S80.10XA Long-term current use of anticoagulant 356188766 Z79.01 [id number] Cristine Sidhu NP [facility] [address] [place] [address] 12/29/2021 13:36:24 12/30/2021 10:20:27 Blood coagulation disorder 12821812 D68.61 D68.2 [id number] Olivia Goldberg NP [facility] [address] [place] [address] 01/18/2023 14:00:39 01/18/2023 15:01:49 Health Concerns Section Related Observation LastModified by Organization Detai ls LastModified Time None Recorded Concern Status LastModified by Organization Details LastModified Time None Recorded Advance Directives Directive Y: Payers Insurance Date Sequence Insurance Name Policy Number Policy Pettit Covered Member ID Pettit Member ID Guarantor Name 01/18/2023 2 [place] [id number] Jovana Malik [id number] Jovana Malik 10/18/2021 1 *SELF PAY* Jovana Malik [id number] Jovana Malik 10/18/2021 2 [place] Jovana Malik [id number] Jovana Steinino 01/17/2023 2 [place] [id number] Jovana Malik [id number] Jovana Malik 10/18/2021 1 MEDICARE [place]: [facility] Jovana Malik [id number] Jovana Malik 01/18/2023 1 [place] [facility] Jovana Malik [id number] Jovana Malik Notes Date Note Type Note Provider Name and Address Organization Details Recorded Time 1 text/html General HPI Template - DHReported by Patient This is a 75-year-old female, known to [employer], who calls with concerns for severe abdominal [...] fair fluid intake. JAMES GARCIA, ALON [address], [place], [address], [place] [facility] 03/14/2021 13:21:32 2 text/html 76 YO F [...] asscociated sx's. EMELIA Ni [address], [place], [address], [place] [facility] 07/18/2021 12:04:00 2 text/html [...] evaluated. Cristine Sidhu NP [address], [place], [address], [place] [facility] 11/09/2021 02:11:05 2 text/html [...] supernatural. Cristine Sidhu NP [address], [place], [address], [place] [facility] 12/29/2021 14:43:53 3 text/html pt did not answer, visit canceled Olivia Goldberg NP [address], [place], [address], [place] [facility] 01/18/2023 19:34:36 OBGyn Episode No OBEpisode recorded.
--- OUTSIDE RECORDS SUMMARY | 2025-05-18 08:30 | XMS_ITS | Encounter Summary ---
Author Organization [facility] Address [address] [place] [address] Phone Care Team Providers Care Handkerchief Cutter Name Role Phone Caitlyn Bowie MD Primary Care Provider [phone]- [phone] Encounter Details Date Type Department Care Team (Late Contact Info) Description 12/12/2024 Documentation Only [facility] [address] [place] [address] Marina Abdi [address] [place] [address] Social History Tobacco Use Types [...] [facility] [address] [place] [address] Rubén Ashraf MD [address] [place] [address] [place] [address] documented as of this encounter Visit Diagnoses Not on filedocumented in this encounter Care Teams Handkerchief Cutter Relationship Specialty Start Date End Date Caityln Bowie MD [address] [place], [place] PCP - General Internal Medicine 09/24/24 documented as of this encounter
--- OUTSIDE RECORDS SUMMARY | 2025-05-18 08:30 | XMS_ITS | Clinical Summary ---
Author Organization [facility] Address [address] [place] [address] Care Team Providers Care Leather Softener Name Role Phone Brennan Burnett MD Primary Care Provider [phone] Allergies Active Allergy Reactions Criticality Noted Date [...] age to complete this topic Care Teams Leather Softener Relationship Specialty Start Date End Date Brennan Burnett MD [address] [place] [address] PCP - General Internal Medicine 07/06/20
--- OUTSIDE RECORDS SUMMARY | 2025-05-18 08:30 | XMS_ITS | Encounter Summary ---
Author Organization [facility] Address [address] [place] [address] Phone Care Team Providers Care Residential Child Care Counselor Name Role Phone Caitlyn Bowie MD Primary Care Provider [phone]- [phone] Encounter Details Date Type Department Care Team (Late Contact Info) Description 03/24/2025 Documentation Only [facility] [address] [place] [address] Marina Abdi [address] [place] [address] Social History Tobacco Use Types [...] [facility] [address] [place] [address] Rubén Ashraf MD [address] [place] [address] [place] [address] documented as of this encounter Visit Diagnoses Not on filedocumented in this encounter Care Teams Residential Child Care Counselor Relationship Specialty Start Date End Date Caitlyn Bowie MD [address] [place], [place] PCP - General Internal Medicine 09/24/24 documented as of this encounter
--- OUTSIDE RECORDS SUMMARY | 2025-05-18 08:30 | XMS_ITS | Clinical Summary ---
Author Organization [facility] Address [address] [place] [address] Care Team Providers Care Charging Plug Placer Name Role Phone Caitlyn Bowie Primary Care Provider [phone] Allergies Active Allergy Reactions Criticality Noted Date [...] Throat tightness Throat tightness Throat tightness Ipratropium [place] Unknown Medium 12/18/2021 Isosorbide Mononitrate 11/23/2020 Other [...] topic Insurance MEDICARE PART A & B [facility] Care Teams Charging Plug Placer Relationship Specialty Start Date End Date Caitlyn Bowie [address] [place] [address] PCP - General Internal Medicine 07/18/22
--- OUTSIDE RECORDS SUMMARY | 2025-05-18 08:30 | XMS_ITS | Patient Health Record ---
Author Organization [facility] Address [address] [place] [address] Care Team Providers Care Nursing Associate Name Role Phone Shruti Bowieberly Primary Care Provider Cristian Fountain Unavailable [phone] Allergies Allergen (clinical drug ingredient) Drug/Non Drug [...] Active azithromycin zithromycin (uncoded) Unknown Allergy Active ivp dye (uncoded) Unknown [...] Status W/U Status Risk Notes Problem Diverticulitis (31187694) Diverticulitis (K57.92) Active confirmed Problem Irritable bowel syndrome characterized by constipation (640937541) Irritable bowel syndrome with constipation (K58.9) Active confirmed Problem Gastroesophageal reflux disease (914810253) GERD (gastroesophageal reflux disease) (K21.9) Active confirmed Plan Of Treatment No Information Insurance Providers Payer Name Payer Address Payer Phone Subscriber Number Group Number Insured Name Patient Relationship to Insured Coverage Start Date Coverage End Date MEDICARE OF [place] [address] [place] [address] [id number] DANIEL WATSONE Self - patient is the insured [employer] ATTN CLAIMS [address] [place] [address] [id number] DANIEL WATSONE Self - patient is the insured Medical (General) History Medical History History ICD Code HI-04/2021-sees Dr. 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 Hogan at [facility] GERD-has had EGD's with Dr. Gomes Pneumomias Hypothyroidism Surgical History Surgery Date(Month/Year) Tonsils and adenoids BOLA Lung cancer-Left lower lobectomy at [facility], XRT, Chemo 2008
--- OUTSIDE RECORDS SUMMARY | 2025-05-18 08:30 | XMS_ITS | Encounter Summary ---
Author Organization [facility] Address [address] [place] [address] Phone Care Team Providers Care Separator Operator Name Role Phone Caitlyn Bowie MD Primary Care Provider [phone]- [phone] Encounter Details Date Type Department Care Team (Late Contact Info) Description 12/12/2024 Documentation Only [facility] [address] [place] [address] Marina Abdi [address] [place], [...] [facility] [address] [place] [address] Rubén Ashraf MD [address] [place] [address] [place] [address] documented as of this encounter Visit Diagnoses Not on filedocumented in this encounter Care Teams Separator Operator Relationship Specialty Start Date End Date Caitlyn Bowie MD [address] [place], [place] PCP - General Internal Medicine 09/24/24 documented as of this encounter
--- OUTSIDE RECORDS SUMMARY | 2025-05-18 08:30 | XMS_ITS | Encounter Summary ---
Author Organization [facility] Address [address] [place] [address] Phone Care Team Providers Care Architectural Technician Name Role Phone Caitlyn Bowie MD Primary Care Provider [phone]- [phone] Encounter Details Date Type Department Care Team (Late st Contact Info) Description 10/01/2024 Documentation Only [facility] [address] [place] [address] Ron [place] [address] [place] [address] Social History Tobacco Use Types [...] [facility] [address] [place] [address] Rubén Ashraf MD [address] [place] [address] Dr. Re[place] [address] documented as of this encounter Visit Diagnoses Not on filedocumented in this encounter Care Teams Architectural Technician Relationship Specialty Start Date End Date Caitlyn Bowie MD [address] [place], [place] PCP - General Internal Medicine 09/24/24 documented as of this encounter
--- OUTSIDE RECORDS SUMMARY | 2025-05-18 08:31 | XMS_ITS | Clinical Summary ---
Author Organization [facility] [place], Address [address] [place] [address] [place] [address] Phone Care Team Providers Care Finishing Area Supervisor Name Role Phone Caitlyn Bowie MD Primary Care Provider +1- [phone] Allergies Active Allergy Reactions Criticality Noted Date [...] [facility] [address] [place] [address] Marina Abdi 03/17/2025 Documentation Only [facility] [address] [place] [address] Marina Abdi 03/17/2025 Orders Only [facility] [address] [place] [address] Marina Abdi Smells of urine (Primary [...] Visit [facility] [address] [place] [address] Rubén Ashraf MD [address] [facility] [place] [address] Health Maintenance Due Date Last Done Comments Influenza Vaccine (#1) 2025 0, 04/22/2019, 04/18/2016 Pneumococcal Vaccine: 50+ Years Completed 08/31/2021, 03/25/2016, 09/17/2015, Additional history exists Hepatitis B Vaccine Aged Out No longe r eligible based on patient's age to complete this topic Insurance Medicare [facility] Care Teams Finishing Area Supervisor Relationship Specialty Start Date End Date Caitlyn Bowie MD [address] [place], [place] PCP - General Internal Medicine 09/24/24
--- OUTSIDE RECORDS SUMMARY | 2025-05-18 08:31 | XMS_ITS | Encounter Summary ---
Author Organization [facility] Address [address] [place] [address] Care Team Providers Care Shale Processing Technician Name Role Phone Caitlyn Bowie MD Primary Care Provider +1- [phone] Encounter Details Date Type Department Care Team (Late st Contact Info) Description 03/14/2025 Scanned Document [facility] Neurology Ophthalmology [address] [place] [address] Shirley Chaidez PA-C [address] [address] Social History Tobacco Use Types Packs/Day Years [...] on filedocumented in this encounter Care Teams Shale Processing Technician Relationship Specialty Start Date End Date Caitlyn Bowie MD [address] [place] [address] PCP - General Internal Medicine 03/20/23 documented as of this encounter
--- OUTSIDE RECORDS SUMMARY | 2025-05-18 08:31 | XMS_ITS | Encounter Summary ---
Author Organization [facility] Address [address] [place] [address] Phone Care Team Providers Care Learning Designer Name Role Phone Caitlyn Bowie MD Primary Care Provider [phone]- [phone] Encounter Details Date Type Department Care Team (Late Contact Info) Description 12/10/2024 Documentation Only [facility] [address] [place] [address] Marina Abdi [address] [place] [address] Social History Tobacco Use Types [...] [facility] [address] [place] [address] Rubén Ashraf MD [address] [place] [address] [place] [address] documented as of this encounter Visit Diagnoses Not on filedocumented in this encounter Care Teams Learning Designer Relationship Specialty Start Date End Date Caitlyn Bowie MD [address] [place], [place] PCP - General Internal Medicine 09/24/24 documented as of this encounter
--- OUTSIDE RECORDS SUMMARY | 2025-05-18 08:31 | XMS_ITS | Encounter Summary ---
Author Organization [facility] Address [address] [place] [address] Care Team Providers Care Civil Cad Tech Name Role Phone Caitlyn Bowie MD Primary Care Provider [phone]- [phone] Encounter Details Date Type Department Care Team (Late st Contact Info) Description 03/20/2023 Scanned Document [facility] Radiology [address] [place] [address] Caitlyn Bowie MD [address] [place] [address] Social History Tobacco Use Types Packs/Day Years [...] filedocumented in this encounter Care Teams Civil Cad Tech Relationship Specialty Start Date End Date Caitlyn Bowie MD [address] [place] [address] PCP - General Internal Medicine 03/20/23 documented as of this encounter
--- OUTSIDE RECORDS SUMMARY | 2025-05-18 08:31 | XMS_ITS | Encounter Summary ---
Author Organization [facility] Address [address] [place] [address] Phone Care Team Providers Care Coil Winder Hand Name Role Phone Caitlyn Bowie MD Primary Care Provider [phone]- [phone] Encounter Details Date Type Department Care Team (Late Contact Info) Description 12/10/2024 Documentation Only [facility] [address] [place] [address] Marina Abdi [address] [place] [address] Social History Tobacco Use Types [...] [facility] [address] [place] [address] Rubén Ashraf MD [address] [place] [address] [place] [address] documented as of this encounter Visit Diagnoses Not on filedocumented in this encounter Care Teams Coil Winder Hand Relationship Specialty Start Date End Date Caitlyn Bowie MD [address] [place], [place] PCP - General Internal Medicine 09/24/24 documented as of this encounter
--- OUTSIDE RECORDS SUMMARY | 2025-05-18 08:31 | XMS_ITS | Encounter Summary ---
Author Organization [facility] Address [address] [place] [address] Phone Care Team Providers Care Physical Therapy Aide Name Role Phone Caitlyn Bowie MD Primary Care Provider [phone]- [phone] Encounter Details Date Type Department Care Team (Late Contact Info) Description 12/10/2024 Documentation Only [facility] [address] [place] [address] Marina Abdi [address] [place] [address] Social History Tobacco Use Types [...] [facility] [address] [place] [address] Rubén Ashraf MD [address] [place] [address] [place] [address] documented as of this encounter Visit Diagnoses Not on filedocumented in this encounter Care Teams Physical Therapy Aide Relationship Specialty Start Date End Date Caitlyn Bowie MD [address] [place], [place] PCP - General Internal Medicine 09/24/24 documented as of this encounter
--- OUTSIDE RECORDS SUMMARY | 2025-05-18 08:31 | XMS_ITS | Encounter Summary ---
Author Organization [facility] Address [address] [place] [address] Care Team Providers Care Boring Machine Operator Name Role Phone Pcp, No Primary Care Provider Brennan Mario MD Primary Care Provider [phone] Caitlyn Bowie MD Primary Care Provider [phone]- [phone] Encounter Details Date Type Department Care Team (Late st Contact Info) Description 01/04/2022 Scanned Document [facility] Neurology Ophthalmology [address] [address] Yary Whitten DO [address] [place] [address] Social History Tobacco Use Types Packs/Day [...] on filedocumented in this encounter Care Teams Boring Machine Operator Relationship Specialty Start Date End Date Pcp, No PCP - General General Medicine 10/04/21 07/18/22 Brennan Burnett MD [address] [place] [address] PCP - General 07/19/22 03/19/23 Caitlyn Bowie MD [address] [place] [address] PCP - General Internal Medicine 03/20/23 documented as of this encounter
--- OUTSIDE RECORDS SUMMARY | 2025-05-18 08:31 | XMS_ITS | Encounter Summary ---
Author Organization [facility] Address [address] [place] [address] Care Team Providers Care Inside Sales Territory Manager Name Role Phone Pcp, No Primary Care Provider Brennan Mario MD Primary Care Provider [phone] Caitlyn Bowie MD Primary Care Provider [phone]- [phone] Encounter Details Date Type Department Care Team (Late st Contact Info) Description 01/04/2022 Scanned Document [facility] Neurology Ophthalmology [address] [address] Yary Whitten DO [address] [place] [address] Social History Tobacco Use Types Packs/Day [...] on filedocumented in this encounter Care Teams Inside Sales Territory Manager Relationship Specialty Start Date End Date Pcp, No PCP - General General Medicine 10/04/21 07/18/22 Brennan Burnett MD [address] [place] [address] PCP - General 07/19/22 03/19/23 Caitlyn Bowie MD [address] [place] [address] PCP - General Internal Medicine 03/20/23 documented as of this encounter
--- OUTSIDE RECORDS SUMMARY | 2025-05-18 08:31 | XMS_ITS | Encounter Summary ---
Author Organization [facility] Address [address] [place] [address] Phone Care Team Providers Care Prepress Stripper Name Role Phone Caitlyn Bowie MD Primary Care Provider [phone]- [phone] Encounter Details Date Type Department Care Team (Late Contact Info) Description 12/10/2024 Documentation Only [facility] [address] [place] [address] Marina Abdi [address] [place] [address] Social History Tobacco Use Types [...] Visit [facility] [address] [place] [address] Rubén Ashraf MD [address] [place] [address] [place] [address] documented as of this encounter Visit Diagnoses Not on filedocumented in this encounter Care Teams Prepress Stripper Relationship Specialty Start Date End Date Caitlyn Bowie MD [address] [place], [place] PCP - General Internal Medicine 09/24/24 documented as of this encounter
--- OUTSIDE RECORDS SUMMARY | 2025-05-18 08:31 | XMS_ITS | Encounter Summary ---
Author Organization [facility] Address [address] [place] [address] Phone Care Team Providers Care Cell Plasterer Name Role Phone Caitlyn Bowie MD Primary Care Provider [phone]- [phone] Encounter Details Date Type Department Care Team (Late Contact Info) Description 12/10/2024 Documentation Only [facility] [address] [place] [address] Marina Abdi [address] [place] [address] Social History Tobacco Use Types [...] [facility] [address] [place] [address] Rubén Ashraf MD [address] [place] [address] [place] [address] documented as of this encounter Visit Diagnoses Not on filedocumented in this encounter Care Teams Cell Plasterer Relationship Specialty Start Date End Date Caitlyn Bowie MD [address] [place], [place] PCP - General Internal Medicine 09/24/24 documented as of this encounter
--- OUTSIDE RECORDS SUMMARY | 2025-05-18 08:31 | XMS_ITS | Patient Health Record ---
Author Organization [facility] Address [address] [facility] [address] [place] [address] Care Team Providers Care Moisture Conditioner Operator Name Role Phone EVELIN RAMSAY Primary Care Provider Yenny Hou Unavailable [phone] Allergies Allergen (clinical drug ingredient) Drug/Non Drug [...] Status Risk Notes Problem Postmenopausal atrophic vaginitis (54829667) Postmenopausal atrophic vaginitis (N95.2) Active confirmed Problem Age-related osteoporosis (830357069) Age-related osteoporosis without current pathological fracture (M81.0) Active confirmed Problem Urgent desire to urinate (42744267) Urgency of urination (R39.15) Active confirmed Problem 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 Problem Chronic systolic heart failure (552674335) Chronic systolic (congestive) heart failure (I50.22) Active confirmed Problem Chronic obstructive pulmonary disease (47056739) Chronic obstructive pulmonary disease, unspecified (J44.9) Active confirmed Problem Functional urinary incontinence (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) Functional 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) Active confirmed Problem Personal history of primary malignant neoplasm of bronchus (249481144) 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) Active confirmed Vital Signs Temperature 97.7 degrees Fahrenheit 07/18/2024 Blood pressure diastolic 62 mm Hg 07/18/2024 Height 63 in 07/18/2024 Blood pressure systolic 102 mm Hg 07/18/2024 Weight 126 lbs 07/18/2024 BMI 22.32 kg/m2 07/18/2024 Encounters Encounter Location Date Provider Diagnosis [employer] [facility] [address] [address] 07/09/2024 Yenny Elizalde Urgency of urination R39.15 ; Acute vaginitis N76.0 and Postmenopausal atrophic vaginitis N95.2 [place] [address] [address] 07/18/2024 Yenny Elizalde Encounter for screening mammogram for malignant neoplasm of breast Z12.31 and Mastodynia N64.4 [place] [address] [address] [address] 06/11/2024 Yenny Elizalde Assessments Encounter Date Diagnosis (ICD Code) Assessment Notes Treatment Notes Treatment Clinical Notes Section Notes 07/09/2024 Urgency of urination (ICD-10 - R39.15) 07/18/2024 Encounter for screening mammogram for malignant neoplasm of breast (ICD-10 - Z12.31) REGULAR MAMMOGRAMS AND SBE'S WERE RECOMMENDED. 07/09/2024 Acute vaginitis (ICD-10 - N76.0) DISCUSSED FINDINGS, DX AND TX OPTIONS. DOYLE [...] EMPHASIZED. 07/18/2024 Mastodynia (ICD-10 - N64.4) REASSURED DOYLE THAT BREAST EXAM TODAY WAS ENTIRELY NORMAL. [...] Coverage End Date MEDICARE [address] [place] [id number] SHIRLEY CINDA Self - patient is the insured [employer] [address] [place] [address] [phone] [id number] DANIEL WATSONE Self - patient is [...]
--- OUTSIDE RECORDS SUMMARY | 2025-05-18 08:31 | XMS_ITS | Clinical Summary ---
Author Organization [facility] Address [address] [place] [address] Phone Care Team Providers Care Jet Aircraft Servicer Name Role Phone Caitlyn Bowie MD [...] (12/25/2021 4:22 PM EDT): Followed closely by beam house inspector-Dr. Ronald Mills at [facility] hematology- advised to continue Coumadin [...] (09/09/2021 10:42 PM EST): Followed closely by beam house inspector-Dr. Ronald Mills at [facility] hematology- last seen on 08/05/2021 [...] anticoagulation clinic to keep INR at 1.5-2.0. 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 Daily [...] alternating low dosing as prescribed by her knitted cloth examiner and consider gentle taper when ready. Daily [...] 11:40 AM EST Office Visit [facility] [address] [place] [address] [place] [address] Anna Ellis MD [address] [place] [address] [address] [facility] [place] [address] [email or web address] Health Maintenance Due Date Last Done Comments [...] LAB BLOOD BKR ORDERABL ES Final Result [facility] [address] [place] [address] from Last 3 Months or Most Recently Relevant to Health Maintenance Insurance MEDICARE PART A & B [facility] MEDEX SUPPLEMENT HEALTH SAFETY NET [facility] MEDICARE PART A & B [facility] MEDEX SUPPLEMENT [facility] F[facility] MEDICARE PART A & B [facility] MEDEX SUPPLEMENT HEALTH SAFETY [facility] MEDICARE PART A & B [facility] MEDEX SUPPLEMENT [facility] MEDICARE PART A & B [facility] MEDEX SUPPLEMENT HEALTH SAFETY [facility] MEDICARE PART A & B [facility] MEDEX SUPPLEMENT [facility] MEDICARE PART A & B [facility] MEDEX SUPPLEMENT HEALTH [facility]AFETY [facility] MEDICARE PART A & B [facility] MEDEX SUPPLEMENT [facility] SAFETY NET FULL [facility] MEDICARE PART A & B [facility] MEDEX SUPPLEMENT [facility] NET [facility] Care Teams Jet Aircraft Servicer Relationship Specialty Start Date End Date Caitlyn Bowie MD PCP - General Internal Medicine 09/09/21 Additional Source Comments The information contained in this document represents components of the legal health record. It is not the complete legal health record.[facility]
--- OUTSIDE RECORDS SUMMARY | 2025-05-18 08:31 | XMS_ITS | Clinical Summary ---
Author Organization [address] [facility] Address [address] [place] [address] Phone Care Team Providers Care Reflexologist Name Role Phone Caitlyn Bowie MD Primary Care Provider [phone] Allergies Active Allergy Reactions Criticality Noted Date [...] 20 mg as needed by her previous human performance technologist which she has taken sporadically. I have asked her to take this daily to see if this improves her symptoms and she has a follow-up appointment with Dr. Shah on September 16 which she will keep. We also had a long conversation regarding the fact that she is seeing 3 different human performance technologist for the same problems. We informed her [...] continues to see Dr. Avalos or her human performance technologist at [facility]. She [...] antibody syndrome (CMS/HCC V24) 12/24/2018 Adrenal insufficiency ([facility] V24) 08/23/2018 Allergic rhinitis 08/23/2018 Hyperparathyroidism ([facility] V24) 08/23/2018 MRSA infection 08/23/2018 Overview (05/16/2024): 06/2009, s/p thoracotomy infection Osteoarthritis 08/23/2018 Radiation-induced pulmonary fibrosis ([facility] V2 4) 11/13/2017 Bronchiectasis ([facility] V24, [facility] V28) 2017 Leg edema 08/08/2017 Restrictive lung disease 08/08/2017 Chronic obstructive pulmonar y disease ([facility] V24, [facility] V28) 04/13/2017 Fibromyalgia 04/13/2017 Congestive heart failure ([facility] V24, [facility] V 28) 04/04/2017 Heterozygous factor V Leiden mutation ([facility] V 24) 04/04/2017 Obstructive sleep apnea syndrome 04/04/2017 Overview (05/16/2024): CPAP Pleural effusion 04/04/2017 Pulmonary hypertension ([facility] V24, [facility] V28 ) 04/04/2017 Multiple pulmonary [...] Encounters Date Type Department Care Team Description 05/14/2025 9:45 AM EST Treatment [address] [phone] Bruno Moreno, PT Gait abnormality (Primary Dx); Cerebral lesion 05/12/2025 1:45 PM EST Treatment [address] [phone] Gene Marshall, AUTOMOTIVE SERVICE MANAGEMENT TEACHER Gait abnormality (Primary Dx); Cerebral lesion 05/12/2025 Telephone [facility] [address] [phone] Ayanna Jaffe MD 04/14/2025 10:00 AM EDT Evaluation [address] [phone] Bruno Moreno, PT Gait abnormality (Primary Dx); Cerebral lesion 04/14/2025 Plan of Care Documentation [address] [phone] 04/11/2025 Telephone Gastroenterology - [address] [phone] Tim Gomes MD 03/20/2025 11:40 AM EDT Office Visit [address] [phone] Ayanna Jaffe MD Optic neuritis (Primary Dx); White matter lesion of central nervous system; Blurry vision 02/24/2025 Telephone Gastroenterology - [address] [phone] Tim Gomes MD 02/23/2025 11:40 AM EDT - 02/23/2025 4:22 PM EDT Emergency [facility] Emergency [address] [place] [phone] Celia Snider DO Diverticulitis (Primary Dx) Discharge Disposition: Home or Self Care 02/21/2025 4:30 PM EDT Office Visit [address] [phone] Shirley Chaidez PA Optic neuritis (Primary Dx) [...] PROCEDURE: HISTORICAL TONSILLECTOMY OTHER SURGICAL HISTORY PROCEDURE: WY RMVL LUNG XCP TOT PNEUMONECTOMY SLEEVE LOBECTOMY; [...] pathology report UPPER GASTROINTESTINAL ENDOSCOPY 05/03/2015 PROCEDURE: WY UPPER GI ENDOSCOPY PERFORMED MITRAL CLIP PROCEDURE Medical History Medical History Date Comments Akathisia 04/15/2013 DX:Akathisia Anxiety 12/07/2016 DX:Anxiety Bronchiectasis ([facility] V24, [facility] V28) 08/08/2017 DX:Bronchiectasis (HCC) Cataract 08/26/2014 DX:Cataract Chronic obstructive pulmonar y disease ([facility] V24, [facility] V28) 04/13/2017 DX:Chronic obstructive pulm onary disease (HCC) 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 DX:Complica cole migraine Congestive heart failure ( [facility] V24, [facility] V28) 04/04/2017 DX:Congestive heart failure (HCC) History of deep vein thrombosis 04/04/2017 DX:History of deep vein thrombosis Diverticulitis of sigmoid colon 12/15/2016 DX:Diverticulitis of sigmoid colon Elevated liver enzymes 09/23/2015 DX:Elevat ed liver enzymes Fibromyalgia 04/13/2017 DX:Fibromyalgia Gastroesophageal reflux disease 11/17/2016 DX:Gastroesophageal reflux disease Glaucoma suspect 08/26/2014 DX:Glaucoma dori pect Heterozygous factor V Leiden mutation ([facility] V24) 04/04/2017 DX:Heterozygous factor [...] Pulmonary hypertension ([facility] V24, [facility] V28) 04/04/2017 DX:Pulmonary hypertension (H CC) Restrictive lung disease 08/08/2017 DX:Rest rictive lung disease 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 DX:Zinc deficien cy Obstructive sleep apnea syndrome 04/04/2017 DX:Obstructive sleep apnea syndrome; COMMENT: CPAP Radiation-induced pulmonary fibrosis ([facility] V24) 11/13/2017 DX:Radiation-induced pulmona ry fibrosis (HCC) Adrenal insufficiency ([facility] V24) 08/23/2018 DX:Adrenal insufficiency (HCC) Hyperparathyroidism ([facility] V24) 08/23/2018 DX:Hyperparathyroidism (HCC) [...] Mx LLL resection, Chemo, RT, Cisplatin, Vinorelbine [phone] Antiphospholipid antibody sy ndrome ([facility] V24) 12/24/2018 DX:Antiphospholipid antibody syndrome (HCC) 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 Hyperparathyroidism ([facility] V24) DX:Hyperparathyroidism (HCC) Adrenal insufficiency ([facility] V24) DX:Adrenal insufficiency (HCC) [...] Info) Description 05/19/2025 10:30 AM EST Treatment [facility] [address] [phone] Bruno Moreno, PT [address] [place] [address] 05/21/2025 10:15 AM EST Treatment [address] [phone] Gene Marshall, AUTOMOTIVE SERVICE MANAGEMENT TEACHER 05/26/2025 10:30 AM EST Treatment [address] [phone] Bruno Moreno, PT [address] [place] [address] 05/28/2025 1:30 PM EST Treatment [address] [phone] Gene Marshall, AUTOMOTIVE SERVICE MANAGEMENT TEACHER 05/29/2025 3:00 PM EST Office Visit [address] [phone] Ayanna Jaffe MD [address] [place] [address] 06/02/2025 10:30 AM EST Treatment [address] [phone] Bruno Moreno, PT [address] [place] [address] 06/04/2025 10:15 AM EST Treatment [address] [phone] Bruno Moreno, PT [address] [place] [address] Health Maintenance Due Date Last Done Comments [...] feel better. Improve balance General Yes Bruno Moreno M, PT PT STG x 8 visis from [...] [facility]14[facility]2025 General No Bruno Moreno, [...] central nervous system Blurry vision NEUROMYELITIS OPTICA, [id number] Routine 03/20/2025 12:31 PM EDT Optic neuritis [...] reflex to titer (03/20/2025 12:31 PM EDT) [facility] MOG Antibody, Cell-based IFA Negative Negative 03/25/2025 1:05 AM EDT [facility] Blood Venous blood specimen / Unknown Venipuncture / Unknown 03/20/2025 12:31 PM EDT 03/20/2025 12:31 PM EDT Narrative [facility] - 03/25/2025 1:05 AM EDT Test(s) 399131-DVT Antibody, Cell-based IFA was developed and its performance characteristics determined by [facility]. It has not been cleared or approved by the Food and Drug Administration. Performed at: [address] [place] [id number] Art Consultant: Melissa Wetzel MD, Phone: [phone] Ayanna Jaffe MD LAB BLOOD ORDERABLES Fin al Result Performing Organization Address [facility] Co de Phone Number [facility] * Neuromyelitis optica, [id number] (03/20/2025 12:31 PM EDT) [facility] NMO IgG Autoantibodies <1.5 0.0 - 3.0 U/mL 03/24/2025 3:05 PM EDT [facility] Comment: Negative: 0.0 - 3.0 Positive: >3.0 Blood Venous blood specimen / Unknown Venipuncture / Unknown 03/20/2025 12:31 PM EDT 03/20/2025 12:31 PM EDT [facility] - 03/24/2025 3:05 PM EDT Performed at: [address] [place] [id number] Art Consultant: Melissa Wetzel MD, Phone: [phone] Ayanna Jaffe MD LAB BLOOD ORDERABLES Fin al Result Performing Organization Address [facility]/ZIP Co de Phone Number [facility] * (ABNORMAL) CBC auto differential (03/20/2025 12:31 PM EDT) Only the most recent of2 resultswithin the time period is included. [facility] WBC 11.0(H) 4.8 - 10.8 K/mcL LAB HEMETOLOGY METHOD 03/20/2025 2:23 PM EDT [facility] RBC 3.50(L) 3.80 - 4.80 M/mcL LAB HEMETOLOGY METHOD 03/20/2025 2:23 PM EDT [facility] Hemoglobin 11.5 11.5 - 16.0 g/dL LAB HEMETOLOGY METHOD 03/20/2025 2:23 PM [facility] Hematocrit 36.7 35.0 - 47.0 % LAB HEMETOLOGY METHOD 03/20/2025 2:23 PM [facility] MCV 105.2(H) 79.0 - 98.0 FL LAB HEMETOLOGY METHOD 03/20/2025 2:23 PM [facility] MCH 33.0(H) 27.0 - 32.0 pcg LAB HEMETOLOGY METHOD 03/20/2025 2:23 PM [facility] MCHC 31.3(L) 32.0 - 37.0 g/dL LAB HEMETOLOGY METHOD 03/20/2025 2:23 PM [facility] RDW 14.1 11.0 - 15.0 % LAB HEMETOLOGY METHOD 03/20/2025 2:23 PM [facility] Platelets 243 130 - 400 K/mcL LAB HEMETOLOGY METHOD 03/20/2025 2:23 PM [facility] MPV 11.3(H) 7.0 - 11.0 FL LAB HEMETOLOGY METHOD 03/20/2025 2:23 PM [facility] NRBC 0.2 <1.0 % LAB HEMETOLOGY METHOD 03/20/2025 2:23 PM [facility] NRBC Absolute 0.02 <0.10 K/mcL LAB HEMETOLOGY METHOD 03/20/2025 2:23 PM [facility] Neutrophils Relative 75.9 % LAB HEMETOLOGY METHOD 03/20/2025 2:23 PM [facility] Lymphocytes Relative 8.7 % LAB HEMETOLOGY METHOD 03/20/2025 2:23 PM EDT [facility] Monocytes Relative 12.2 % LAB HEMETOLOGY METHOD 03/20/2025 2:23 PM [facility] Eosinophils Relative 0.7 % LAB HEMETOLOGY METHOD 03/20/2025 2:23 PM [facility] Basophils Relative 0.7 % LAB HEMETOLOGY METHOD 03/20/2025 2:23 PM [facility] Immature Granulocytes Relative 1.8 % LAB HEMETOLOGY METHOD 03/20/2025 2:23 PM T [facility] Neutrophils Absolute 8.36(H) 1.50 - 7.00 K/mcL LAB HEMETOLOGY METHOD 03/20/2025 2:23 PM [facility] Lymphocytes Absolute 0.96(L) 1.00 - 5.00 K/mcL LAB HEMETOLOGY METHOD 03/20/2025 2:23 PM [facility] Monocytes Absolute 1.34(H) 0.20 - 1.00 K/mcL LAB HEMETOLOGY METHOD 03/20/2025 2:23 PM [facility] Eosinophils Absolute 0.08 0.00 - 0.50 K/mcL LAB HEMETOLOGY METHOD 03/20/2025 2:23 PM EDT [facility] Basophils Absolute 0.08 0.00 - 0.20 K/mcL LAB HEMETOLOGY METHOD 03/20/2025 2:23 PM [facility] Immature Granulocytes Absolute 0.20(H) 0.00 - 0.03 K/mcL LAB HEMETOLOGY METHOD 03/20/2025 2:23 PM [facility] Blood Venous blood specimen / Unknown Venipuncture / Unknown 03/20/2025 12:31 PM EDT 03/20/2025 12:31 PM EDT Ayanna Jaffe MD LAB BLOOD ORDERABLES Fin al Result Performing Organization Address City/[facility]/ZIP Co de Phone Number [facility] [address] [place] [address], [place] [phone] * Sedimentation rate (03/20/2025 12:31 PM EDT) Sed Rate 25 0 - 30 mm/hr LAB HEMETOLOGY METHOD 03/20/2025 2:14 PM EDT [facility] Blood Venous blood specimen / Unknown Venipuncture / Unknown 03/20/2025 12:31 PM EDT 03/20/2025 12:31 PM EDT Ayanna Jaffe MD LAB BLOOD ORDERABLES Fin al Result Performing Organization Address [facility] Co de Phone Number [facility] [address] [place] [address], [place] [phone] * ECG-Annotated (02/24/2025) Provider Onbase ECG ORDERABLES Final Result * CT Head wo Contrast (02/23/2025 2:53 PM EDT) Anatomical Region Laterality Modality Head and Neck Computed Tomogra phy 02/23/2025 2:57 PM EDT Impressions 02/23/2025 3:01 PM EDT Impression: No acute hemorrhage or intracranial mass effect. No significant change. Telerad EMELIA ([id number]) -------- FINAL REPORT -------- Dictated By: Fawn Levin Dictated Date: 02/23/2025 14:57 ET Assigned Physician: Fawn Levin Reviewed and Electronically Signed By: Fawn Levin Signed Date: 02/23/2025 15:01 ET Workstation ID: [id number] Transcribed By: Self Edit Transcribed Date: 02/23/2025 [...] without intravenous contrast. DLP: 808.85 mGy/cm [employer]ed VCT Iterative reconstruction technique Findings: Moderate generalized [...] or intracranial mass effect. No significant change. Melon #[email or web address] EMELIA ([id number]) -------- FINAL REPORT -------- Dictated By: Fawn Levin Dictated Date: 02/23/2025 14:57 ET Assigned Physician: Fawn Levin Reviewed and Electronically Signed By: Fawn Levin Signed Date: 02/23/2025 15:01 ET Workstation ID: [id number] Transcribed By: Self Edit Transcribed Date: 02/23/2025 [...] when clinically appropriate, to exclude this possibility. SnapHealthkarla KAPOOR ([id number]) -------- FINAL REPORT -------- Dictated By: Fawn Levin Dictated Date: 02/23/2025 15:01 ET Assigned Physician: Fawn Levin Reviewed and Electronically Signed By: Fawn Levin Signed Date: 02/23/2025 15:05 ET Workstation ID: [id number] Transcribed By: Self Edit Transcribed Date: 02/23/2025 15:01 ET Narrative 02/23/2025 3:05 PM EDT History: Left lower quadrant abdominal pain. Comparison: 08/23/23 Technique: Helical volumetric imaging of the abdomen and pelvis was performed without intravenous or oral contrast. DLP: 480.07 mGy/cm VantageILMpeIntroNet VCT Iterative reconstruction technique Findings: Chronic pleural-parenchymal [...] intravenous or oral contrast. DLP: 480.07 mGy/cm ngmoco VCT Iterative reconstruction technique Findings: Chronic pleural-parenchymal [...] recommended, whenclinically appropriate, to exclude this possibility. Romi KAPOOR ([id number]) -------- FINAL REPORT -------- Dictated By: Fawn Levin Dictated Date: 02/23/2025 15:01 ET Assigned Physician: Fawn Levin Reviewed and Electronically Signed By: aFwn Levin Signed Date: 02/23/2025 15:05 ET Workstation ID: [id number] Transcribed By: Self Edit Transcribed Date: 02/23/2025 [...] City/[facility]/ZIP Co de Phone Number [facility] [address] [place] [address], [place] [phone] * Blood Culture, Peripheral Draw #2 (02/23/2025 2:25 PM EDT) Only the most recent of2 resultswithin the time period is included. Pathologist [facility] Culture, Blood No growth at 5 days 02/28/2025 3:01 PM EDT [facility] Blood Venous blood specimen / Unknown Venipuncture / Unknown 02/23/2025 2:25 PM EDT 02/23/2025 2:35 PM EDT us Afsaneh KAPOOR LAB MICROBIOLOGY - GENERAL O RDERABLES Final Result [facility] [address] [place] [address], [place] [phone] * XR Chest 1 View (02/23/2025 2:15 PM EDT) Anatomical Region Laterality Modality Body Radiographic Monserrat ging 02/23/2025 2:33 PM EDT Impressions 02/23/2025 2:37 PM EDT Impression: Stable radiographic appearance of the chest, including volume loss and chronic pleural-parenchymal opacity in the left hemithorax consistent with previously treated lung carcinoma. No acute process identified. Telekarla KAPOOR ([id number]) -------- FINAL REPORT -------- Dictated By: Fawn Levin Dictated Date: 02/23/2025 14:33 ET Assigned Physician: Fawn Levin Reviewed and Electronically Signed By: Fawn Levin Signed Date: 02/23/2025 14:37 ET Workstation ID: [id number] Transcribed By: Self Edit Transcribed Date: 02/23/2025 14:33 ET Narrative 02/23/2025 2:37 PM EDT History: Dyspnea. Personal history of lung carcinoma. Comparison: 07/30/23, thoracic CT 09/09/24 [place], [place] Findings: Portable AP upright chest at [...] lung carcinoma. Comparison: 07/30/23, thoracic CT 09/09/24 [place], [place] Findings: Portable AP upright chest at [...] carcinoma. No acute process identified. Telekarla KAPOOR ([id number]) -------- FINAL REPORT -------- Dictated By: Fawn Levin Dictated Date: 02/23/2025 14:33 ET Assigned Physician: Fawn Levin Reviewed and Electronically Signed By: Fawn Levin Signed Date: 02/23/2025 14:37 ET Workstation ID: [id number] Transcribed By: Self Edit Transcribed Date: 02/23/2025 14:33 ET Afsaneh KAPOOR IMG XR PROCEDURES Final Resu lt * Urinalysis with reflex microscopic and culture (02/23/2025 2:04 PM EDT) Specific Barney Urine 1.006 1.003 - 1.030 LAB URINALYSIS - AUTOMATED METHOD 02/23/2025 2:17 PM [facility] pH, Urine 7.5 5.0 - 8.0 pH LAB URINALYSIS - AUTOMATED METHOD 02/23/2025 2:17 PM [facility] Leukocytes, Urine Negative Negative LAB URINALYSIS - AUTOMATED METHOD 02/23/2025 2:17 PM [facility] Nitrite, Urine Negative Negative LAB URINALYSIS - AUTOMATED METHOD 02/23/2025 2:17 PM [facility] Protein, Urine Negative <=Trace mg/dL LAB URINALYSIS - AUTOMATED METHOD 02/23/2025 2:17 PM [facility] Glucose, Urine Negative Negative mg/dL LAB URINALYSIS - AUTOMATED METHOD 02/23/2025 2:17 PM [facility] Ketones, Urine Negative Negative mg/dL LAB URINALYSIS - AUTOMATED METHOD 02/23/2025 2:17 PM [facility] Urobilinogen, Urine 0.2 0.2 - 1.0 mg/dL LAB URINALYSIS - AUTOMATED METHOD 02/23/2025 2:17 PM [facility] Bilirubin, Urine Negative Negative LAB URINALYSIS - AUTOMATED METHOD 02/23/2025 2:17 PM EDT [facility] Blood, Urine Negative Negative LAB URINALYSIS - AUTOMATED METHOD 02/23/2025 2:17 PM EDT [facility] Urine Urine specimen obtained by clean catch procedure / Unknown Non-blood Collection / Unknown 02/23/2025 2:04 PM EDT 02/23/2025 2:05 PM EDT A[facility] LAB URINE ORDERABLES Final R esult Performing Organization Address City/[facility]/ZIP Co de Phone Number [facility] [address] [place] [address], [place] [phone] * Martinez urine culture tube (02/23/2025 2:04 PM EDT) Pathologist [facility] Extra Tube Hold for add-ons. 02/23/2025 4:01 PM EDT [facility] Comment:Auto resulted. Urine Urine specimen obtained by clean catch procedure / Unknown Non-blood Collection / Unknown 02/23/2025 2:04 PM EDT 02/23/2025 2:05 PM EDT [facility] LAB URINE ORDERABLES Final R esult Performing Organization Address City/[facility]/ZIP Co de Phone Number [facility] [address] [place] [address], [place] [phone] * Troponin I high sensitivity (02/23/2025 1:15 [...] City/[facility]/ZIP Co de Phone Number [facility] [address] [place] [address], [place] [phone] * (ABNORMAL) Prothrombin time with INR (02/23/2025 [...] R esult Performing Organization Address City/[facility] Co de Phone Number [facility] [address] [place] [address], [place] [phone] * Type and screen (02/23/2025 1:15 PM [...] [facility] [address] [place] [address], * (ABNORMAL) Comprehensive Metabolic Panel (CMP) (02/23/2025 1:15 PM EDT) Sodium 136 133 - 145 mmol/L LAB CHEMISTRY METHOD 02/23/2025 2:13 PM EDT [facility] Potassium 3.5 3.5 - 5.5 mmol/L LAB CHEMISTRY METHOD 02/23/2025 2:13 PM [facility] Chloride 97 96 - 110 mmol/L LAB CHEMISTRY METHOD 02/23/2025 2:13 PM [facility] CO2 33(H) 21 - 32 mmol/L LAB CHEMISTRY METHOD 02/23/2025 2:13 PM [facility] Anion Gap 6 3 - 11 LAB CHEMISTRY METHOD 02/23/2025 2:13 PM [facility] Glucose 100 70 - 100 mg/dL LAB CHEMISTRY METHOD 02/23/2025 2:13 PM [facility] BUN 23 5 - 25 mg/dL LAB CHEMISTRY METHOD 02/23/2025 2:13 PM EDT [facility] Creatinine 0.83 0.50 - 1.10 mg/dL LAB CHEMISTRY METHOD 02/23/2025 2:13 PM [facility] eGFR 71 >=60 mL/min/1. 73m2 LAB CHEMISTRY METHOD 02/23/2025 2:13 PM [facility] Comment:Calculation based on the Chronic Kidney Disease Epidemiology Collaboration (CKD-EPI) equation refit without adjustment for race. 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
--- OUTSIDE RECORDS SUMMARY | 2025-05-18 08:31 | XMS_ITS | Encounter Summary ---
Author Organization [facility] Address [address] [place] [address] Phone Care Team Providers Care Steam Press Operator Name Role Phone Caitlyn Bowie MD Primary Care Provider [phone]- [phone] Encounter Details Date Type Department Care Team (Late st Contact Info) Description 10/10/2024 Documentation Only [facility] [address] [place] [address] Ron Taylor [place] [address] [place] [address] Social History Tobacco Use Types [...] [facility] [address] [place] [address] Rubén Ashraf MD [address] [place] [address] [place] [address] documented as of this encounter Visit Diagnoses Not on filedocumented in this encounter Care Teams Steam Press Operator Relationship Specialty Start Date End Date Caitlyn Bowie MD [address] [place], [place] PCP - General Internal Medicine 09/24/24 documented as of this encounter
--- OUTSIDE RECORDS SUMMARY | 2025-05-18 08:31 | XMS_ITS | Encounter Summary ---
Author Organization [facility] Address [address] [place] [address] Phone Care Team Providers Care Watch Repair Person Name Role Phone Caitlyn Bowie MD Primary Care Provider +1- [phone] Encounter Details Date Type Department Care Team (Late Contact Info) Description 12/10/2024 Documentation Only [facility] [address] [place] [address] Marina Abdi [address] [place] [address] Social History Tobacco Use Types [...] [facility] [address] [place] [address] Rubén Ashraf MD [address] [place] [address] [place] [address] documented as of this encounter Visit Diagnoses Not on filedocumented in this encounter Care Teams Watch Repair Person Relationship Specialty Start Date End Date Caitlyn Bowie MD [address] [place], [place] PCP - General Internal Medicine 09/24/24 documented as of this encounter
[2025-05-18 09:16] LABS: MANUAL DIFF FLAG NO
[2025-05-18 09:19] LABS: Hematocrit 35.6 % (37.0-47.0); Hemoglobin 11.4 g/dl (12.0-16.0); Imm Gran Abs Auto 0.17 X10*3/uL (0.00-0.03); Imm Gran Pct Auto 0.9 % (0.0-0.4); Lymphocytes Absolute Auto 0.7 X10*3/uL (1.2-4.9); Mean Corpuscular HGB Conc 32.0 g/dl (31.0-35.0); Mean Corpuscular Hemoglobin 32.8 pg (27.0-33.0); Mean Corpuscular Volume 102.3 fL (80.0-98.0); NRBC Abs Auto 0.000 X10*3/uL (0.0-0.012); NRBC Pct Auto 0.0 /100WBC (0.0-0.2); Platelet Count 207 X10*3/uL (160-400); Red Blood Count 3.48 X10*6/uL (4.20-5.50); White Blood Count 19.0 X10*3/uL (4.8-10.8)
[2025-05-18 09:21] LABS: VBG HCO3 31 mmol/L (22-26); VBG O2 % Saturation 99.0 %
[2025-05-18 09:22] LABS: Venous Blood Gas Refer to POC result
[2025-05-18 09:25] LABS: INTERNATIONAL NORM RATIO 1.5 (0.9-1.1); Prothrombin Time 18.3 SEC (11.2-13.5)
[2025-05-18 09:28] LABS: Partial Thromboplastin Time 37.6 SEC (26.7-34.1)
--- NOTE | 2025-05-18 09:30 | PC.NURSE ---
Pt ambulatory to and from bathroom with steady gait independently.
[2025-05-18 09:42] LABS: Alanine Aminotransferase 19 U/L (0-31); Albumin Level 3.9 g/dL (3.5-5.0); Alkaline Phosphatase 64 U/L (39-117); Anion Gap 14 (12-20); Aspartate Amino Transferase 27 U/L (5-31); Blood Urea Nitrogen 22 mg/dL (9-16); Calcium 10.2 mg/dL (8.4-10.2); Carbon Dioxide 27 mmol/L (22-29); Chloride 100 mmol/L (96-108); Creatinine Clr Calc Pharmacy 45.3; Estimated Glomerular Filt Rate > 60; Lipase 23 U/L (8-78); Magnesium 2.9 mg/dL (1.6-2.6); Potassium 3.0 mmol/L (3.3-5.1); Sodium 138 mmol/L (135-145); Total Protein 6.9 g/dL (6.5-8.0)
[2025-05-18 09:52] LABS: NT Pro B Type Natriuretic Pept 1224.0 pg/mL (<300); Troponin-I High Sensitivity 15.1 ng/L (<3.5-17.0)
[2025-05-18 10:30] LABS: Resp Syncy Virus RNA Qual PCR NEGATIVE (Negative); SARS COV2 PCR INHOUSE NEGATIVE (Negative)
[2025-05-18 13:10] VITALS: BP 108/51; PULSE 87; RESP 15; O2SAT 96
[2025-05-18] MEDS: Potassium Chloride ER 20 MEQ TAB.ER.PRT PO (13:11)
[2025-05-18] MEDS: oxyCODONE HCl Immed Release 5 MG TABLET PO (13:11)
[2025-05-18 13:12] VITALS: BP 108/51
[2025-05-18 15:09] VITALS: BP 108/51; PULSE 87; RESP 15; TEMP 36.8; O2SAT 96
== END 2025-05-18 15:10 | disposition home or self-care (01) ==
PROVIDERS: Emergency Provider Emergency Medicine Emergency Medical Services; PCP Internal Medicine
DX: E23.2 Diabetes insipidus (principal); J18.9 Pneumonia, unspecified organism; R06.02 Shortness of breath; R07.89 Other chest pain; J44.9 Chronic obstructive pulmonary disease, unspecified; Z03.818 Encounter for observation for suspected exposure to other biological agents ruled out; Z99.81 Dependence on supplemental oxygen; Z79.899 Other long term (current) drug therapy
CPT/HCPCS: 36415; 71045; 80053; 82803; 83605; 83690; 83735; 83880; 84484; 85025; 85610; 85730; 87637; 93005; 99283; 99285

== ENCOUNTER → 2025-05-18 07:59 | Outpatient (BNV) | payer MEDICARE, SELFPAY | PROVIDERS: Emergency Provider Emergency Medicine Emergency Medical Services; PCP Internal Medicine; Visit Provider Internal Medicine Cardiovascular Disease | DX: I45.2 Bifascicular block (principal) | CPT/HCPCS: 93010 ==

== ENCOUNTER → 2025-05-18 08:33 | Outpatient (BNV) | payer MEDICARE, SELFPAY | PROVIDERS: Emergency Provider Emergency Medicine Emergency Medical Services; PCP Internal Medicine; Visit Provider Radiology Vascular & Interventional Radiology | DX: R07.9 Chest pain, unspecified (principal); R06.02 Shortness of breath | CPT/HCPCS: 71045 ==

== ENCOUNTER 2025-05-21 13:50 | Outpatient (REF) | payer MEDICARE, SELFPAY ==
--- NOTE | ~2025-05-21 | US_ITS ---
CLINICAL HISTORY: M79.89 - Other specified soft tissue disorders Arterial duplex ultrasound left lower extremity Comparison: None provided Findings: Continuous, pulsatile flow with normal waveforms from common femoral through the posterior tibial and dorsalis pedis arteries. No focal stenosis, aneurysm or occlusion identified. Velocities are within normal range. The left peroneal artery is not visualized on the current study. IMPRESSION: No hemodynamically significant stenoses on left lower extremity arterial duplex. This document has been electronically signed by: Kevin Wang MD on 05/22/2025 10:39:24
--- OUTSIDE RECORDS SUMMARY | 2025-05-21 16:55 | XMS_ITS | Encounter Summary ---
Author Organization [facility] Address [address] [place] [address] Care Team Providers Care Merchandising Lead Name Role Phone Caitlyn Bowie MD Primary Care Provider +1- [phone] Encounter Details Date Type Department Care Team (Late st Contact Info) Description 05/14/2020 Documentation [facility] [address] [address] Taya Nuno RN Social History Tobacco Use [...] as of this encounter Care Teams Merchandising Lead Relationship Specialty Start Date End Date Caitlyn Bowie MD [address] [address] PCP - General Internal Medicine 05/06/21 Henry Kelly MD Pulmonary Department [address] [place] [address], [address] [place] [address] Physician Pulmonary Disease 09/06/17 06/22/20 documented as of this encounter
--- OUTSIDE RECORDS SUMMARY | 2025-05-21 16:55 | XMS_ITS | Encounter Summary ---
Author Organization [facility] Address [address] [place] [address] Care Team Providers Care Pbx Installer Name Role Phone Caitlyn Bowie MD Primary Care Provider +1- [phone] Encounter Details Date Type Department Care Team ([facility] st Contact Info) Description 09/09/2020 Scanned Document [facility] Health Information Management [address] [place] [address] External, Provider Social History Tobacco Use Types [...] as of this encounter Care Teams Pbx Installer Relationship Specialty Start Date End Date Caitlyn Bowie MD [address] [address] PCP - General Internal Medicine 05/06/21 documented as of this encounter
--- OUTSIDE RECORDS SUMMARY | 2025-05-21 16:55 | XMS_ITS | Encounter Summary ---
Author Organization [facility] Address [address] [place] [address] Care Team Providers Care Sucker Machine Operator Name Role Phone Ciatlyn Bowie MD Primary Care Provider +1- [phone] Encounter Details Date Type Department Care Team (Late st Contact Info) Description 12/16/2016 Scanned Document [facility] Health Information Management [address] [place] [address] External, Provider Social History Tobacco Use Types [...] documented as of this encounter Care Teams Sucker Machine Operator Relationship Specialty Start Date End Date Caitlyn Bowie MD 3400 [facility] 1 [place] [address] PCP - General Internal Medicine 05/06/21 Henry Kelly MD Pulmonary Department 175 [facility], [address] [place] [address] Physician Pulmonary Disease 09/06/17 06/22/20 documented as of this encounter
--- OUTSIDE RECORDS SUMMARY | 2025-05-21 16:55 | XMS_ITS | Encounter Summary ---
Author Organization [facility] Address [address] [place] [address] Care Team Providers Care Mortuary Beautician Name Role Phone Caitlyn Bowie MD Primary Care Provider +1- [phone] Encounter Details Date Type Department Care Team (Late st Contact Info) Description 02/20/2017 Scanned Document [facility] Health Information Management [address] [place] [address] External, Provider Social History Tobacco Use Types [...] documented as of this encounter Care Teams Mortuary Beautician Relationship Specialty Start Date End Date Caitlyn Bowie MD 3400 [facility] [address] 1 [place] [address] PCP - General Internal Medicine 05/06/21 Henry Kelly MD Pulmonary Department 175 [facility], [address] [place] [address] Physician Pulmonary Disease 09/06/17 06/22/20 documented as of this encounter
--- OUTSIDE RECORDS SUMMARY | 2025-05-21 16:55 | XMS_ITS | Encounter Summary ---
Author Organization [facility] and [facility] Address [address] [place] [address] Care Team Providers Care Econometrics Professor Name Role Phone Caitlyn Bowie MD Primary Care Provider +1- [phone] Encounter Details Date Type Department Care Team ([facility] st Contact Info) Description 09/17/2020 Scanned Document [facility] Health Information Management [address] [place] [address] External, Provider Social History Tobacco Use Types [...] documented as of this encounter Care Teams Econometrics Professor Relationship Specialty Start Date End Date Caitlyn Bowie MD [facility] [address] [address] PCP - General Internal Medicine 05/06/21 documented as of this encounter
--- OUTSIDE RECORDS SUMMARY | 2025-05-21 16:55 | XMS_ITS | Encounter Summary ---
Author Organization [facility] Address [address] [place] [address] Care Team Providers Care Personnel Worker Name Role Phone Caitlyn Bowie MD Primary Care Provider +1- [phone] Encounter Details Date Type Department Care Team (Late st Contact Info) Description 12/16/2016 Scanned Document [facility] Health Information Management [address] [place] [address] External, Provider Social History Tobacco Use Types [...] documented as of this encounter Care Teams Personnel Worker Relationship Specialty Start Date End Date Caitlyn Bowie MD 3400 [facility] 1 [place] [address] PCP - General Internal Medicine 05/06/21 Henry Kelly MD Pulmonary Department 175 [facility], [address] [place] [address] Physician Pulmonary Disease 09/06/17 06/22/20 documented as of this encounter
--- OUTSIDE RECORDS SUMMARY | 2025-05-21 16:55 | XMS_ITS | Patient Health Record ---
Author Organization [facility] Address [address] [place] [address] Care Team Providers Care Ballistics Laboratory Gunsmith Name Role Phone Shruti Bowieberly Primary Care Provider Cristian Fountain Unavailable [phone] Allergies Allergen (clinical drug ingredient) Drug/Non Drug [...] Status W/U Status Risk Notes Problem Diverticulitis (73245133) Diverticulitis (K57.92) Active confirmed Problem Irritable bowel syndrome characterized by constipation (246202535) Irritable bowel syndrome with constipation (K58.9) Active confirmed Problem Gastroesophageal reflux disease (924812997) GERD (gastroesophageal reflux disease) (K21.9) Active confirmed Plan Of Treatment No Information Insurance Providers Payer Name Payer Address Payer Phone Subscriber Number Group Number Insured Name Patient Relationship to Insured Coverage Start Date Coverage End Date MEDICARE OF [place] [address] [place] [address] [phone] [id number] DANIEL WATSONE Self - patient is the insured [employer] ATTN CLAIMS [address] [place] [address] [id number] DANIEL WATSONE Self - patient is the insured Medical (General) History Medical History History ICD Code PA-04/2021-sees Dr. 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 Hogan at [facility] GERD-has had EGD's with Dr. Gomes Pneumomias Hypothyroidism Surgical History Surgery Date(Month/Year) Tonsils and adenoids BOLA Lung cancer-Left lower lobectomy at [facility], XRT, Chemo 2008
--- OUTSIDE RECORDS SUMMARY | 2025-05-21 16:55 | XMS_ITS | Encounter Summary ---
Author Organization [facility] Address [address] [place] [address] Care Team Providers Care Manager Package Name Role Phone Caitlyn Bowie MD Primary Care Provider +1- [phone] Encounter Details Date Type Department Care Team (Late st Contact Info) Description 05/19/2020 Scanned Document [facility] at [address] [address] External, Provider Social History Tobacco Use Types [...] as of this encounter Care Teams Manager Package Relationship Specialty Start Date End Date Caitlyn Bowie MD 3400 [facility] 1 [place] [address] PCP - General Internal Medicine 05/06/21 Henry Kelly MD Pulmonary Department 175 [facility], [address] [place] [address] Physician Pulmonary Disease 09/06/17 06/22/20 documented as of this encounter
--- OUTSIDE RECORDS SUMMARY | 2025-05-21 16:55 | XMS_ITS | Encounter Summary ---
Author Organization [facility] and [facility] Address [address] [place] [address] Care Team Providers Care Memorial Adviser Name Role Phone Caitlyn Bowie MD Primary Care Provider +1- [phone] Encounter Details Date Type Department Care Team (Late st Contact Info) Description 09/15/2020 Scanned Document INTERFACE DEFAULT [address] [place] [address] System, Provider Not In Social History Tobacco [...] as of this encounter Care Teams Memorial Adviser Relationship Specialty Start Date End Date Caitlyn Bowie MD [address] [address] PCP - General Internal Medicine 05/06/21 documented as of this encounter
--- OUTSIDE RECORDS SUMMARY | 2025-05-21 16:55 | XMS_ITS | Encounter Summary ---
Author Organization [facility] Address [address] [place] [address] Care Team Providers Care Partition Notcher Name Role Phone Caitlyn Bowie MD Primary Care Provider +1- [phone] Encounter Details Date Type Department Care Team (Late st Contact Info) Description 04/18/2025 Telephone [facility] [address] [place] [phone] Ronald Mills MD [address] [address] Social History Tobacco Use Types [...] documented as of this encounter Care Teams Partition Notcher Relationship Specialty Start Date End Date Caitlyn Bowie MD [address] [address] PCP - General Internal Medicine 05/06/21 documented as of this encounter
--- OUTSIDE RECORDS SUMMARY | 2025-05-21 16:55 | XMS_ITS | Encounter Summary ---
Author Organization [facility] Address [address] [place] [address] Care Team Providers Care Coffee Maker Servicer Name Role Phone Caitlyn Bowie MD Primary Care Provider +1- [phone] Encounter Details Date Type Department Care Team ([facility] st Contact Info) Description 02/02/2017 Scanned Document [facility] Health Information Management [address] [place] [address] External, Provider Social History Tobacco Use Types [...] as of this encounter Care Teams Coffee Maker Servicer Relationship Specialty Start Date End Date Caitlyn Bowie MD [address] [address] PCP - General Internal Medicine 05/06/21 Henry Kelly MD Pulmonary Department 175 [facility], [address] [place] [address] Physician Pulmonary Disease 09/06/17 06/22/20 documented as of this encounter
--- OUTSIDE RECORDS SUMMARY | 2025-05-21 16:55 | XMS_ITS | Encounter Summary ---
Author Organization [facility] Address [address] [place] [address] Care Team Providers Care Deputy Juvenile Officer Name Role Phone Caitlyn Bowie MD Primary Care Provider +1- [phone] Encounter Details Date Type Department Care Team ([facility] st Contact Info) Description 09/16/2020 Scanned Document [facility] Health Information Management [address] [place] [address] External, Provider Social History Tobacco Use Types [...] End Date Caitlyn Bowie MD [address] [address] PCP - General Internal Medicine 05/06/21 documented as of this encounter
--- OUTSIDE RECORDS SUMMARY | 2025-05-21 16:55 | XMS_ITS | Encounter Summary ---
Author Organization [facility] Address [address] [place] [address] Care Team Providers Care Drafting Technician Name Role Phone Caitlyn Bowie MD Primary Care Provider +1- [phone] Encounter Details Date Type Department Care Team (Late st Contact Info) Description 09/15/2020 Scanned Document [facility] at [address] [address] External, Provider Social History Tobacco Use Types [...] as of this encounter Care Teams Drafting Technician Relationship Specialty Start Date End Date Caitlyn Bowie MD [address] [address] PCP - General Internal Medicine 05/06/21 documented as of this encounter
--- OUTSIDE RECORDS SUMMARY | 2025-05-21 16:55 | XMS_ITS | Encounter Summary ---
Author Organization [facility] and [facility] Address [address] [place] [address] Care Team Providers Care Transport Aide Name Role Phone Caitlyn Bowie MD Primary Care Provider +1- [phone] Encounter Details Date Type Department Care Team ([facility] st Contact Info) Description 12/16/2016 Scanned Document [facility] Health Information Management [address] [place] [address] External, Provider Social History Tobacco Use Types [...] documented as of this encounter Care Teams Transport Aide Relationship Specialty Start Date End Date Caitlyn Bowie MD [address] [address] PCP - General Internal Medicine 05/06/21 Henry Kelly MD Pulmonary Department 175 [facility], [address] [place] [address] Physician Pulmonary Disease 09/06/17 06/22/20 documented as of this encounter
--- OUTSIDE RECORDS SUMMARY | 2025-05-21 16:55 | XMS_ITS | Encounter Summary ---
Author Organization [facility] and [facility] Address [address] [place] [address] Care Team Providers Care Residential Sales Executive Name Role Phone Caitlyn Bowie MD Primary Care Provider +1- [phone] Encounter Details Date Type Department Care Team ([facility] st Contact Info) Description 09/15/2020 Scanned Document [facility] Health Information Management [address] [place] [address] External, Provider Social History Tobacco Use Types [...] of this encounter Care Teams Residential Sales Executive Relationship Specialty Start Date End Date Caitlyn Bowie MD [address] [address] PCP - General Internal Medicine 05/06/21 documented as of this encounter
--- OUTSIDE RECORDS SUMMARY | 2025-05-21 16:55 | XMS_ITS | Encounter Summary ---
Author Organization [facility] and [facility] Address [address] [place] [address] Care Team Providers Care Factory Worker Name Role Phone Caitlyn Bowie MD Primary Care Provider +1- [phone] Encounter Details Date Type Department Care Team (Late st Contact Info) Description 12/16/2016 Scanned Document [facility] Health Information Management [address] [place] [address] External, Provider Social History Tobacco Use Types [...] documented as of this encounter Care Teams Factory Worker Relationship Specialty Start Date End Date Caitlyn Bowie MD 3400 [facility] 1 [place] [address] PCP - General Internal Medicine 05/06/21 Henry Kelly MD Pulmonary Department [address] [place] [address], [address] [place] [address] Physician Pulmonary Disease 09/06/17 06/22/20 documented as of this encounter
--- OUTSIDE RECORDS SUMMARY | 2025-05-21 16:55 | XMS_ITS | Encounter Summary ---
Author Organization [facility] and [facility] Address [address] [place] [address] Care Team Providers Care Rechecker Name Role Phone Caitlyn Bowie MD Primary Care Provider +1- [phone] Encounter Details Date Type Department Care Team (Late st Contact Info) Description 12/16/2016 Scanned Document [facility] Health Information Management [address] [place] [address] External, Provider Social History Tobacco Use Types [...] documented as of this encounter Care Teams Rechecker Relationship Specialty Start Date End Date Caitlyn Bowie MD 3400 [facility] 1 [place] [address] PCP - General Internal Medicine 05/06/21 Henry Kelly MD Pulmonary Department [address] [place] [address], [address] [place] [address] Physician Pulmonary Disease 09/06/17 06/22/20 documented as of this encounter
--- OUTSIDE RECORDS SUMMARY | 2025-05-21 16:55 | XMS_ITS | Encounter Summary ---
Author Organization [facility] and [facility] Address [address] [place] [address] Care Team Providers Care Software Quality Test Engineer Name Role Phone Caitlyn Bowie MD Primary Care Provider +1- [phone] Encounter Details Date Type Department Care Team (Late st Contact Info) Description 12/16/2016 Scanned Document [facility] Health Information Management [address] [place] [address] External, Provider Social History Tobacco Use Types [...] of this encounter Care Teams Software Quality Test Engineer Relationship Specialty Start Date End Date Caitlyn Bowie MD 3400 [facility] Max 1 [place] [address] PCP - General Internal Medicine 05/06/21 Henry Kelly MD Pulmonary Department 175 [facility], [address] [place] [address] Physician Pulmonary Disease 09/06/17 06/22/20 documented as of this encounter
--- OUTSIDE RECORDS SUMMARY | 2025-05-21 16:55 | XMS_ITS | Encounter Summary ---
Author Organization [facility] Address [address] [place] [address] Care Team Providers Care Security Advisor Name Role Phone Caitlyn Bowie MD Primary Care Provider +1- [phone] Encounter Details Date Type Department Care Team ([facility] st Contact Info) Description 09/16/2020 Scanned Document [facility] Health Information Management [address] [place] [address] External, Provider Social History Tobacco Use Types [...] End Date Caitlyn Bowie MD [address] [address] PCP - General Internal Medicine 05/06/21 documented as of this encounter
--- OUTSIDE RECORDS SUMMARY | 2025-05-21 16:55 | XMS_ITS | Encounter Summary ---
Author Organization [facility] and [facility] Address [address] [place] [address] Care Team Providers Care Briquette Molder Name Role Phone Caitlyn Bowie MD Primary Care Provider +1- [phone] Encounter Details Date Type Department Care Team (Late st Contact Info) Description 02/20/2017 Scanned Document [facility] Health Information Management [address] [place] [address] External, Provider Social History Tobacco Use Types [...] documented as of this encounter Care Teams Briquette Molder Relationship Specialty Start Date End Date Caitlyn Bowie MD 3400 [facility] 1 [place] [address] PCP - General Internal Medicine 05/06/21 Henry Kelly MD Pulmonary Department 175 [facility], [address] [place] [address] Physician Pulmonary Disease 09/06/17 06/22/20 documented as of this encounter
--- OUTSIDE RECORDS SUMMARY | 2025-05-21 16:55 | XMS_ITS | Encounter Summary ---
Author Organization [facility] and [facility] Address [address] [place] [address] Care Team Providers Care Datawarehouse Developer Name Role Phone Caitlyn Bowie MD Primary Care Provider +1- [phone] Encounter Details Date Type Department Care Team (Late st Contact Info) Description 12/19/2016 Scanned Document [facility] Health Information Management [address] [place] [address] External, Provider Social History Tobacco Use Types [...] documented as of this encounter Care Teams Datawarehouse Developer Relationship Specialty Start Date End Date Caitlyn Bowie MD 3400 [facility] 1 [place] [address] PCP - General Internal Medicine 05/06/21 Henry Kelly MD Pulmonary Department 175 [facility], [address] [place] [address] Physician Pulmonary Disease 09/06/17 06/22/20 documented as of this encounter
--- OUTSIDE RECORDS SUMMARY | 2025-05-21 16:55 | XMS_ITS | Encounter Summary ---
Author Organization [facility] Address [address] [place] [address] Care Team Providers Care Groundskeeper Supervisor Name Role Phone Caitlyn Bowie MD Primary Care Provider +1- [phone] Encounter Details Date Type Department Care Team (Late st Contact Info) Description 09/07/2020 Scanned Document [facility] at 175 [facility] 175 [facility] THIRD [place], [place] [address] Norma Renee MD [address] [place] [phone] Social History Tobacco Use Types Packs/Day Years [...] documented as of this encounter Care Teams Groundskeeper Supervisor Relationship Specialty Start Date End Date Caitlyn Bowie MD [address] [address] PCP - General Internal Medicine 05/06/21 documented as of this encounter
--- OUTSIDE RECORDS SUMMARY | 2025-05-21 16:55 | XMS_ITS | Encounter Summary ---
Author Organization [facility] and [facility] Address [address] [place] [address] Care Team Providers Care Sidewalk Inspector Name Role Phone Caitlyn Bowie MD Primary Care Provider +1- [phone] Encounter Details Date Type Department Care Team ([facility] st Contact Info) Description 07/08/2020 Scanned Document [facility] Health Information Management [address] [place] [address] External, Provider Social History Tobacco Use Types [...] documented as of this encounter Care Teams Sidewalk Inspector Relationship Specialty Start Date End Date Caitlyn Bowie MD [address] [address] PCP - General Internal Medicine 05/06/21 documented as of this encounter
--- OUTSIDE RECORDS SUMMARY | 2025-05-21 16:55 | XMS_ITS | Encounter Summary ---
Author Organization [facility] and [facility] Address [address] [place] [address] Care Team Providers Care Cytotechnologist/Cytology Supervisor Name Role Phone Caitlyn Bowie MD Primary Care Provider +1- [phone] Encounter Details Date Type Department Care Team ([facility] st Contact Info) Description 09/18/2020 Scanned Document [facility] Health Information Management [address] [place] [address] External, Provider Social History Tobacco Use Types [...] documented as of this encounter Care Teams Cytotechnologist/Cytology Supervisor Relationship Specialty Start Date End Date Caitlyn Bowie MD [address] [address] PCP - General Internal Medicine 05/06/21 documented as of this encounter
--- OUTSIDE RECORDS SUMMARY | 2025-05-21 16:56 | XMS_ITS | Encounter Summary ---
Author Organization [facility] and [facility] Address [address] [place] [address] Care Team Providers Care Business Development Specialist Name Role Phone Caitlyn Bowie MD Primary Care Provider +1- [phone] Encounter Details Date Type Department Care Team ([facility] st Contact Info) Description 04/18/2013 Documentation [facility] at [address] [address] Isis Ragland RN Social History Tobacco Use [...] End Date Caitlyn Bowie MD [address] [address] PCP - General Internal Medicine 05/06/21 Henry Kelly MD Pulmonary Department [address] [place] [address] [address] [place] [address] Physician Pulmonary Disease 09/06/17 06/22/20 documented as of this encounter
--- OUTSIDE RECORDS SUMMARY | 2025-05-21 16:56 | XMS_ITS | Encounter Summary ---
Author Organization [facility] Address [address] [place] [address] Care Team Providers Care Childcare Center Administrator Name Role Phone Caitlyn Bowie MD Primary Care Provider +1- [phone] Encounter Details Date Type Department Care Team ([facility] st Contact Info) Description 07/26/2012 Abstract [facility] Health Information Management [address] [place] [address] [place], Primary Care [address] [place] [phone] Social History Tobacco Use Types Packs/Day Years [...] documented as of this encounter Care Teams Childcare Center Administrator Relationship Specialty Start Date End Date Caitlyn Bowie MD 3400 [facility] 1 [place] [address] PCP - General Internal Medicine 05/06/21 Henry Kelly MD Pulmonary Department [address] [place] [address], [address] [place] [address] Physician Pulmonary Disease 09/06/17 06/22/20 documented as of this encounter
--- OUTSIDE RECORDS SUMMARY | 2025-05-21 16:56 | XMS_ITS | Encounter Summary ---
Author Organization [facility] and [facility] Address [address] [place] [address] Care Team Providers Care Lock Corner Machine Operator Name Role Phone Caitlyn Bowie MD Primary Care Provider +1- [phone] Encounter Details Date Type Department Care Team ([facility] st Contact Info) Description 04/27/2017 Scanned Document [facility] Health Information Management [address] [place] [address] External, Provider Social History Tobacco Use Types [...] documented as of this encounter Care Teams Lock Corner Machine Operator Relationship Specialty Start Date End Date Caitlyn Bowie MD [address] [address] PCP - General Internal Medicine 05/06/21 Henry Kelly MD Pulmonary Department 175 [facility], [address] [place] [address] Physician Pulmonary Disease 09/06/17 06/22/20 documented as of this encounter
--- OUTSIDE RECORDS SUMMARY | 2025-05-21 16:56 | XMS_ITS | Encounter Summary ---
Author Organization [facility] and [facility] Address [address] [place] [address] Care Team Providers Care Air Compressor Operator Name Role Phone Caitlyn Bowie MD Primary Care Provider +1- [phone] Encounter Details Date Type Department Care Team (Late st Contact Info) Description 04/26/2017 Scanned Document Cardiovascular Medicine at [address] [place], [place] [phone] Norma Renee MD [address] [place] [address] Social History Tobacco Use Types Packs/Day [...] as of this encounter Care Teams Air Compressor Operator Relationship Specialty Start Date End Date Caitlyn Bowie MD [address] [address] PCP - General Internal Medicine 05/06/21 Henry Kelly MD Pulmonary Department [address] [place] [address], [address] [place] [address] Physician Pulmonary Disease 09/06/17 06/22/20 documented as of this encounter
--- OUTSIDE RECORDS SUMMARY | 2025-05-21 16:56 | XMS_ITS | Encounter Summary ---
Author Organization [facility] and [facility] Address [address] [place] [address] Care Team Providers Care Gusset Folder Name Role Phone Caitlyn Bowie MD Primary Care Provider +1- [phone] Encounter Details Date Type Department Care Team (Late st Contact Info) Description 06/21/2012 Abstract [facility] at [address] [address] Mikel Lloyd MD [address] [place] [phone] Social History Tobacco Use Types Packs/Day Years [...] documented as of this encounter Care Teams Gusset Folder Relationship Specialty Start Date End Date Caitlyn Bowie MD [address] [address] PCP - General Internal Medicine 05/06/21 Henry Kelly MD Pulmonary Department 175 [facility], [address] [place] [address] Physician Pulmonary Disease 09/06/17 06/22/20 documented as of this encounter
--- OUTSIDE RECORDS SUMMARY | 2025-05-21 16:56 | XMS_ITS | Encounter Summary ---
Author Organization [facility] [place] [facility] and [facility] Address [address] [place] [address] Care Team Providers Care Hotel Front Desk Clerk Name Role Phone Caitlyn Bowie MD Primary Care Provider +1- [phone] Encounter Details Date Type Department Care Team ([facility] st Contact Info) Description 08/16/2012 Abstract [facility] Health Information Management [address] [place] [address] [place], Primary Care [address] [place] [address] Social History Tobacco Use Types Packs/Day Years [...] of this encounter Care Teams Hotel Front Desk Clerk Relationship Specialty Start Date End Date Caitlny Bowie MD 3400 [facility] 1 [place] [address] PCP - General Internal Medicine 05/06/21 Henry Kelly MD Pulmonary Department [address] [place] [address], [address] [place] [address] Physician Pulmonary Disease 09/06/17 06/22/20 documented as of this encounter
--- OUTSIDE RECORDS SUMMARY | 2025-05-21 16:56 | XMS_ITS | Encounter Summary ---
Author Organization [facility] and [facility] Address [address] [place] [address] Care Team Providers Care Incident Manager Name Role Phone Caitlyn Bowie MD Primary Care Provider +1- [phone] Encounter Details Date Type Department Care Team (Late st Contact Info) Description 04/26/2017 Scanned Document Cardiovascular Medicine at [address] [address] System, Provider Not In Social History Tobacco [...] as of this encounter Care Teams Incident Manager Relationship Specialty Start Date End Date Catilyn Bowie MD 3400 [facility] 1 [place] [address] PCP - General Internal Medicine 05/06/21 Henry Kelly MD Pulmonary Department 175 [facility], [address] [place] [address] Physician Pulmonary Disease 09/06/17 06/22/20 documented as of this encounter
--- OUTSIDE RECORDS SUMMARY | 2025-05-21 16:56 | XMS_ITS | Encounter Summary ---
Author Organization [facility] Address [address] [place] [address] Phone Care Team Providers Care Community Outreach Specialist Name Role Phone Caitlyn Bowie MD Primary Care Provider +1- [phone] Encounter Details Date Type Department Care Team (Late Contact Info) Description 12/10/2024 Documentation Only [facility] [address] [place] [address] Marina Abdi 2150 [place] [address] Social History Tobacco Use [...] [facility] [address] [place] [address] Rubén Ashraf MD [address] [place] [address] [place] [address] documented as of this encounter Visit Diagnoses Not on filedocumented in this encounter Care Teams Community Outreach Specialist Relationship Specialty Start Date End Date Caitlyn Bowie MD 3400 [place], [place] PCP - General Internal Medicine 09/24/24 documented as of this encounter
--- OUTSIDE RECORDS SUMMARY | 2025-05-21 16:56 | XMS_ITS | Encounter Summary ---
Author Organization [facility] Address [address] [place] [address] Phone Care Team Providers Care Crew Clerk Name Role Phone Caitlyn Bowie MD Primary Care Provider +1- [phone] Encounter Details Date Type Department Care Team (Late Contact Info) Description 12/10/2024 Documentation Only [facility] [address] [place] [address] Marina Abdi 2150 [place] [address] Social History Tobacco Use Types [...] [facility] [address] [place] [address] Rubén Ashraf MD [address] [place] [address] [place] [address] documented as of this encounter Visit Diagnoses Not on filedocumented in this encounter Care Teams Crew Clerk Relationship Specialty Start Date End Date Caitlyn Bowie MD 3400 [place], [place] PCP - General Internal Medicine 09/24/24 documented as of this encounter
--- OUTSIDE RECORDS SUMMARY | 2025-05-21 16:56 | XMS_ITS | Encounter Summary ---
Author Organization [facility] and [facility] Address 20 [place] [address] Care Team Providers Care Campus Security Director Name Role Phone Caitlyn Bowie MD Primary Care Provider +1- [phone] Encounter Details Date Type Department Care Team (Late st Contact Info) Description 01/28/2013 Scanned Document Thoracic Oncology Program at [address] [address] Solo Henry MD [address] [place] [address] Social History Tobacco Use Types Packs/Day [...] as of this encounter Care Teams Campus Security Director Relationship Specialty Start Date End Date Caitlyn Bowie MD [address] [address] PCP - General Internal Medicine 05/06/21 Henry Kelly MD Pulmonary Department [address] [place] [address], [address] [place] [address] Physician Pulmonary Disease 09/06/17 06/22/20 documented as of this encounter
--- OUTSIDE RECORDS SUMMARY | 2025-05-21 16:56 | XMS_ITS | Encounter Summary ---
Author Organization [facility] and [facility] Address [address] [place] [address] Care Team Providers Care Community Health Advocate Name Role Phone Caitlyn Bowie MD Primary Care Provider +1- [phone] Encounter Details Date Type Department Care Team (Late st Contact Info) Description 07/01/2019 Scanned Document [facility] at [address] [place] [address] Norma Renee MD [address] [place] [address] 2 [place] [phone] Social History Tobacco Use Types Packs/Day Years [...] Bowie MD 3400 [facility] 1 [place] [address] PCP - General Internal Medicine 05/06/21 Henry Kelly MD Pulmonary Department 175 [facility], [address] [place] [address] Physician Pulmonary Disease 09/06/17 06/22/20 documented as of this encounter
--- OUTSIDE RECORDS SUMMARY | 2025-05-21 16:56 | XMS_ITS | Encounter Summary ---
Author Organization [facility] Address [address] [place] [address] Phone Care Team Providers Care Manager Media Relations Name Role Phone Caitlyn Bowie MD Primary Care Provider +1- [phone] Encounter Details Date Type Department Care Team (Late Contact Info) Description 12/10/2024 Documentation Only [facility] [address] [place] [address] Marina Abdi 2150 [place] [address] Social History Tobacco Use Types [...] [facility] [address] [place] [address] Rubén Ashraf MD [address] [place] [address] [place] [address] documented as of this encounter Visit Diagnoses Not on filedocumented in this encounter Care Teams Manager Media Relations Relationship Specialty Start Date End Date Caitlyn Bowie MD 3400 [place], [place] PCP - General Internal Medicine 09/24/24 documented as of this encounter
--- OUTSIDE RECORDS SUMMARY | 2025-05-21 16:56 | XMS_ITS | Encounter Summary ---
Author Organization [facility] Address [address] [place] [address] Care Team Providers Care Manager Wholesale Name Role Phone Caitlyn Bowie MD Primary Care Provider +1- [phone] Encounter Details Date Type Department Care Team (Late st Contact Info) Description 01/28/2013 Scanned Document Thoracic Oncology Program at [address] [address] Solo Henry MD [address] [place] [address] Social History Tobacco Use Types Packs/Day [...] as of this encounter Care Teams Manager Wholesale Relationship Specialty Start Date End Date Caitlyn Bowie MD [address] [address] PCP - General Internal Medicine 05/06/21 Henry Kelly MD Pulmonary Department [address] [place] [address], [address] [place] [address] Physician Pulmonary Disease 09/06/17 06/22/20 documented as of this encounter
--- OUTSIDE RECORDS SUMMARY | 2025-05-21 16:56 | XMS_ITS | Encounter Summary ---
Author Organization [facility] Address [address] [place] [address] Care Team Providers Care Hydro Plant Site Manager Name Role Phone Caitlyn Bowie MD Primary Care Provider +1- [phone] Encounter Details Date Type Department Care Team (Late st Contact Info) Description 06/27/2019 Scanned Document [facility] at [address] [place] [address] Norma Renee MD [address] [place] [address] 2 [place] [phone] Social History Tobacco Use Types Packs/Day Years [...] as of this encounter Care Teams Hydro Plant Site Manager Relationship Specialty Start Date End Date Caitlyn Bowie MD 3400 [facility] 1 [place] [address] PCP - General Internal Medicine 05/06/21 Henry Kelly MD Pulmonary Department 175 [facility], [address] [place] [address] Physician Pulmonary Disease 09/06/17 06/22/20 documented as of this encounter
--- OUTSIDE RECORDS SUMMARY | 2025-05-21 16:56 | XMS_ITS | Encounter Summary ---
Author Organization [facility] and [facility] Address [address] [place] [address] Care Team Providers Care Roll Forming Supervisor Name Role Phone Caitlyn Bowie MD Primary Care Provider +1- [phone] Encounter Details Date Type Department Care Team (Late st Contact Info) Description 12/16/2016 Scanned Document [facility] Health Information Management [address] [place] [address] External, Provider Social History Tobacco Use Types [...] as of this encounter Care Teams Roll Forming Supervisor Relationship Specialty Start Date End Date Caitlyn Bowie MD 3400 [facility] 1 [place] [address] PCP - General Internal Medicine 05/06/21 Henry Kelly MD Pulmonary Department 175 [facility], [address] [place] [address] Physician Pulmonary Disease 09/06/17 06/22/20 documented as of this encounter
--- OUTSIDE RECORDS SUMMARY | 2025-05-21 16:56 | XMS_ITS | Encounter Summary ---
Author Organization [facility] Address [address] [place] [address] Phone Care Team Providers Care Children'S Court Magistrate Name Role Phone Caitlyn Bowie MD Primary Care Provider +1- [phone] Encounter Details Date Type Department Care Team (Late Contact Info) Description 12/10/2024 Documentation Only [facility] [address] [address] Marina Abdi 2150 [place] [address] Social History Tobacco Use Types [...] [facility] [address] [place] [place] [address] Rubén Ashraf MD [address] [place] [address] [place] [address] documented as of this encounter Visit Diagnoses Not on filedocumented in this encounter Care Teams Children'S Court Magistrate Relationship Specialty Start Date End Date Caitlyn Bowie MD 3400 [place], [place] PCP - General Internal Medicine 09/24/24 documented as of this encounter
--- OUTSIDE RECORDS SUMMARY | 2025-05-21 16:56 | XMS_ITS | Clinical Summary ---
Author Organization [address] Address [address] [place] [address] Phone Care Team Providers Care Waste Baler Name Role Phone Caitlyn Bowie MD Primary Care Provider +1- [phone] Allergies Active Allergy Reactions Criticality Noted Date [...] Team Description 05/06/2025 Telephone Hematology Program at [address] [address] Ronald Mills MD Appointment 04/24/2025 Telephone Hematology Program at [address] [address] Ronald Mills MD Triage 04/18/2025 Scanned Document INTERFACE DEFAULT [address] [place] [address] System, Provider Not In 04/18/2025 Telephone Hematology Program at [address] [address] Ronald Mills MD 04/11/2025 Documentation Cancer [facility] at [address] [place] [address] Taya Nuno RN 04/11/2025 Orders Only Cancer Center at [address] [place] [address] Ronald Mills MD VTE (venous thromboembolism) (Primary Dx); Elevated homocysteine; Antiphospholipid antibody syndrome (HC Code); Feeding difficulties, unspecified 04/05/2025 Telephone GROUP EXERCISE MANAGER [address] [facility] [address] [place] [address] Mary Pan MD Advice Only from Last [...] 144 mmol/L 04/05/2022 1:43 PM EDT [facility] DEPARTMENT OF LABORATORY [facility]IC[facility] Potassium 4.7 3.3 - 5.3 mmol/L 04/05/2022 1:43 PM EDT [facility]PART[facility] LAB[facility]ORY [facility] Chloride 100 98 - 107 mmol/L 04/05/2022 1:43 PM EDT [facility] DEPARTMENT LABORATORY [facility] CO2 30 20 - 30 mmol/L 04/05/2022 1:43 PM EDT [facility] DEPARTMENT LABORATORY [facility] Anion Gap 8 7 - 17 04/05/2022 1:43 PM EDT [facility] DEPARTMENT LABORATORY [facility] Glucose 115(H) 70 - 100 mg/dL 04/05/2022 1:43 PM EDT [facility] DEPARTMENT LABORATORY MEDIC[facility] BUN 16 8 - 23 mg/dL 04/05/2022 1:43 PM EDT [facility] DEPARTMENT LABORATORY [facility] Creatinine 0.89 0.40 - 1.30 mg/dL 04/05/2022 1:43 PM EDT [facility] DEPARTMENT LABORATORY [facility] Calcium 10.5(H) 8.8 - 10.2 mg/dL 04/05/2022 1:43 PM EDT [facility] DEPARTMENT LABORATORY [facility] BUN/Creatinine Ratio 18.0 8.0 - 23.0 03/11 1:43 PM EDT [facility] DEPARTMENT LABORATORY MEDIC[facility] Total Protein 7.0 6.6 - 8.7 g/dL 04/05/2022 1:43 PM EDT [facility] DEPARTMENT LABORATORY [facility] Albumin 4.2 3.6 - 4.9 g/dL 04/05/2022 1:43 PM T [facility] LABORATORY MEDICINE [facility] Total Bilirubin 0.6 <=1.2 mg/dL 04/05/2022 1:[address] [facility]ORY MEDICINE [facility] Alkaline Phosphatase 58 9 - 122 U/L 04/05/2022 1:[address] [facility] Alanine Aminotransferase (ALT) 19 10 - 35 U/L 04/05/2022 1:43 PM T [facility]ORATORY MEDICINE [facility] Comment:Calcium dobesilate c an cause artificially low ALT results at therapeutic concentrations Aspartate Aminotransferase (AST) 26 10 - 35 U/L 04/05/2022 1:[address] [facility] Globulin 2.8 2.3 - 3.5 g/dL 04/05/2022 1:[address] [facility] A/G Ratio 1.5 1.0 - 2.2 04/05/2022 1:[address] [facility] AST/ALT Ratio 1.4 See Comment 04/05/2022 1:43 PM [facility] DEPARTMENT LABORATORY MEDICINE [facility] Comment: Adult with mild elevations [...] >60 >=60 mL/min/1.7 3m2 04/05/2022 1:[address] [facility] Comment:Estimated glomerular filtration rate [...] LAB BLOOD ORDERABLES Final Resul t [facility] DEPARTMENT OF LABORATORY MEDICINE [facility] [address] [place] [address] * Bone Density Result Scan (05/10/2017) Historical [...] MD LAB BLOOD ORDERABLES Fin al Result [facility] [address] [place] [address], [facility] [phone] * MAMMOGRAPHY REPORT (04/25/2013 6:47 AM EDT) 04/25/2013 6:47 AM EDT us Provider Not In System IMG SCAN REPORTS Final Re sult from Last 3 Months or Most Recently Relevant to Health Maintenance Insurance MEDICARE [facility] MEDICARE [facility] MEDICARE [facility] MEDICARE MEDICARE [facility] Advance Directives * Full ACLS (Latest Code Status on File) Date Activated Date Inactivated Comments 12/15/2018 7:13 PM 12/16/2018 6:09 PM * Full Interventions Date Activated Date Inactivated Comments 03/18/2016 6:34 PM 03/19/2016 6:40 PM Care Teams Waste Baler Relationship Specialty Start Date End Date Caitlyn Bowie MD [address] [address] PCP - General Internal Medicine 05/06/21
--- OUTSIDE RECORDS SUMMARY | 2025-05-21 16:56 | XMS_ITS | Encounter Summary ---
Author Organization [facility] and [facility] Address [address] [place] [address] Care Team Providers Care Screen Vent Binder Name Role Phone Caitlyn Bowie MD Primary Care Provider +1- [phone] Encounter Details Date Type Department Care Team (Late st Contact Info) Description 02/21/2017 Scanned Document [facility] Health Information Management [address] [place] [address] External, Provider Social History Tobacco Use Types [...] MD 3400 [facility] 1 [place] [address] PCP - General Internal Medicine 05/06/21 Henry Kelly MD Pulmonary Department 175 [facility], [address] [place] [address] Physician Pulmonary Disease 09/06/17 06/22/20 documented as of this encounter
--- OUTSIDE RECORDS SUMMARY | 2025-05-21 16:56 | XMS_ITS | Clinical Summary ---
Author Organization [facility] Address [address] [place] [address] Care Team Providers Care Radiographer Mammographer Name Role Phone Brennan Burnett MD Primary [...] age to complete this topic Care Teams Radiographer Mammographer Relationship Specialty Start Date End Date Brennan Burnett MD [address] [place] [address] PCP - General Internal Medicine 07/06/20
--- OUTSIDE RECORDS SUMMARY | 2025-05-21 16:56 | XMS_ITS | Encounter Summary ---
Author Organization [facility] Address [address] [place] [address] Care Team Providers Care Dryer Feeder Name Role Phone Caitlyn Bowie MD Primary Care Provider +1- [phone] Encounter Details Date Type Department Care Team (Late st Contact Info) Description 08/29/2019 Scanned Document [facility] at [address] [address] External, Provider Social History Tobacco Use Types [...] documented as of this encounter Care Teams Dryer Feeder Relationship Specialty Start Date End Date Caitlyn Bowie MD 3400 [facility] 1 [place] [address] PCP - General Internal Medicine 05/06/21 Henry Kelly MD Pulmonary Department 175 [facility], [address] [place] [address] Physician Pulmonary Disease 09/06/17 06/22/20 documented as of this encounter
--- OUTSIDE RECORDS SUMMARY | 2025-05-21 16:56 | XMS_ITS | Encounter Summary ---
Author Organization [facility] Address [address] [place] [address] Care Team Providers Care Laundry Assistant Name Role Phone Caitlyn Bowie MD Primary Care Provider +1- [phone] Encounter Details Date Type Department Care Team (Late st Contact Info) Description 08/29/2019 Scanned Document [facility] at [address] [address] External, Provider Social History Tobacco Use Types [...] as of this encounter Care Teams Laundry Assistant Relationship Specialty Start Date End Date Caitlyn Bowie MD 3400 [facility] 1 [place] [address] PCP - General Internal Medicine 05/06/21 Henry Kelly MD Pulmonary Department 175 [facility], [address] [place] [address] Physician Pulmonary Disease 09/06/17 06/22/20 documented as of this encounter
--- OUTSIDE RECORDS SUMMARY | 2025-05-21 16:56 | XMS_ITS | Encounter Summary ---
Author Organization [facility] Address [address] [place] [address] Care Team Providers Care Director It Name Role Phone Caitlyn Bowie MD Primary Care Provider +1- [phone] Encounter Details Date Type Department Care Team (Late st Contact Info) Description 12/03/2019 Scanned Document [facility] Health Information Management [address] [place] [address] External, Provider Social History Tobacco Use Types [...] as of this encounter Care Teams Director It Relationship Specialty Start Date End Date Caitlyn Bowie MD [address] [address] PCP - General Internal Medicine 05/06/21 Henry Kelly MD Pulmonary Department [address] [place] [address], [address] [place] [address] Physician Pulmonary Disease 09/06/17 06/22/20 documented as of this encounter
--- OUTSIDE RECORDS SUMMARY | 2025-05-21 16:56 | XMS_ITS | Encounter Summary ---
Author Organization [facility] Address [address] [place] [address] Phone Care Team Providers Care Junior Legal Secretary Name Role Phone Caitlyn Bowie MD Primary Care Provider +1- [phone] Encounter Details Date Type Department Care Team (Late Contact Info) Description 12/10/2024 Documentation Only [facility] [address] [place] [address] Marina Abdi [address] [place] [address] Social History Tobacco Use Types [...] [facility] [address] [place] [address] Rubén Ashraf MD [address] [place] [address] [place] [address] documented as of this encounter Visit Diagnoses Not on filedocumented in this encounter Care Teams Junior Legal Secretary Relationship Specialty Start Date End Date Caitlyn Bowie MD [address] [place], [place] PCP - General Internal Medicine 09/24/24 documented as of this encounter
--- OUTSIDE RECORDS SUMMARY | 2025-05-21 16:56 | XMS_ITS | Encounter Summary ---
Author Organization [facility] Address [address] [place] [address] Care Team Providers Care Safety And Health Manager Name Role Phone Caitlyn Bowie MD Primary Care Provider +1- [phone] Encounter Details Date Type Department Care Team ([facility] st Contact Info) Description 11/29/2019 Scanned Document [facility] Health Information Management [address] [place] [address] External, Provider Social History Tobacco Use Types [...] this encounter Care Teams Safety And Health Manager Relationship Specialty Start Date End Date Caitlyn Bowie MD [address] [address] PCP - General Internal Medicine 05/06/21 Henry Kelly MD Pulmonary Department [address] [place] [address], [address] [place] [address] Physician Pulmonary Disease 09/06/17 06/22/20 documented as of this encounter
--- OUTSIDE RECORDS SUMMARY | 2025-05-21 16:56 | XMS_ITS | Encounter Summary ---
Author Organization [facility] Address [address] [place] [address] Care Team Providers Care Weigher Bulker Name Role Phone Caitlyn Bowie MD Primary Care Provider +1- [phone] Encounter Details Date Type Department Care Team (Late st Contact Info) Description 11/26/2019 Scanned Document [facility] at [address] [address] External, Provider Social History Tobacco Use Types [...] as of this encounter Care Teams Weigher Bulker Relationship Specialty Start Date End Date Caitlyn Bowie MD 3400 [facility] 1 [place] [address] PCP - General Internal Medicine 05/06/21 Henry Kelly MD Pulmonary Department 175 [facility], [address] [place] [address] Physician Pulmonary Disease 09/06/17 06/22/20 documented as of this encounter
--- OUTSIDE RECORDS SUMMARY | 2025-05-21 16:56 | XMS_ITS | Encounter Summary ---
Author Organization [facility] Address [address] [place] [address] Care Team Providers Care Ambulance Attendant Name Role Phone Caitlyn Bowie MD Primary Care Provider +1- [phone] Encounter Details Date Type Department Care Team (Late st Contact Info) Description 07/12/2019 Scanned Document [facility] [address] [place] [address] Norma Renee MD [address] [place] [address] 2 [place] [phone] Social History Tobacco Use Types Packs/Day Years [...] documented as of this encounter Care Teams Ambulance Attendant Relationship Specialty Start Date End Date Caitlyn Bowie MD 3400 [facility] 1 [place] [address] PCP - General Internal Medicine 05/06/21 Henry Kelly MD Pulmonary Department 175 [facility], [address] [place] [address] Physician Pulmonary Disease 09/06/17 06/22/20 documented as of this encounter
--- OUTSIDE RECORDS SUMMARY | 2025-05-21 16:56 | XMS_ITS | Encounter Summary ---
Author Organization [facility] and [facility] Address [address] [place] [address] Care Team Providers Care Associate Marketing Manager Name Role Phone Caitlyn Bowie MD Primary Care Provider +1- [phone] Encounter Details Date Type Department Care Team (Late st Contact Info) Description 01/22/2020 Scanned Document [facility] [address] [place] [address] Kerwin Menjivar MD 260 [facility] 3 [place] [address] Social History Tobacco Use Types [...] as of this encounter Care Teams Associate Marketing Manager Relationship Specialty Start Date End Date Caitlyn Bowie MD 3400 [facility] 1 [place] [address] PCP - General Internal Medicine 05/06/21 Henry Kelly MD Pulmonary Department 175 [facility], [address] [place] [address] Physician Pulmonary Disease 09/06/17 06/22/20 documented as of this encounter
--- OUTSIDE RECORDS SUMMARY | 2025-05-21 16:56 | XMS_ITS | Encounter Summary ---
Author Organization [facility] Address [address] [place] [address] Care Team Providers Care Electrical And Electronic Assembler Name Role Phone Caitlyn Bowie MD Primary Care Provider +1- [phone] Encounter Details Date Type Department Care Team (Late st Contact Info) Description 06/27/2019 Scanned Document [facility] [address] [place] [address] Norma Renee MD [address] [place] [address] 2 [place] [phone] Social History Tobacco Use Types Packs/Day Years [...] as of this encounter Care Teams Electrical And Electronic Assembler Relationship Specialty Start Date End Date Caitlyn Bowie MD [address] [facility] 1 [place] [address] PCP - General Internal Medicine 05/06/21 Henry Kelly MD Pulmonary Department 175 [facility], [address] [place] [address] Physician Pulmonary Disease 09/06/17 06/22/20 documented as of this encounter
--- OUTSIDE RECORDS SUMMARY | 2025-05-21 16:56 | XMS_ITS | Encounter Summary ---
Author Organization [facility] Address [address] [place] [address] Care Team Providers Care Grounds Foreman Name Role Phone Caitlyn Bowie MD Primary Care Provider +1- [phone] Encounter Details Date Type Department Care Team (Latest Contact Info) Description 04/15/2013 Transcribed Orders [facility] [address] [place] [address] Tian Atwood MD [address] [place] [address] Unspecified hypothyroidism (Primary Dx) Social History [...] [facility] Comment: Test Result Flag Unit RefValue Copper, S 1.35 mcg/mL 0.75-1.45 04/15/2013 4:31 PM EDT us Tian Atwood MD LAB BLOOD ORDERABLES Final R esult Performing Organization Address City/State/[facility] Co de Phone Number [facility] [address] [place] [address] documented in this encounter Visit Diagnoses Diagnosis Unspecified hypothyroidism- Primary documented in this encounter Additional Health Concerns Infection Onset Date Last Indicated Resolved Time COVID-19 03/05/2022 03/05/2022 03/15/2022 7:18 PM EDT documented as of this encounter Care Teams Grounds Foreman Relationship Specialty Start Date End Date Caitlyn Bowie MD 3400 [facility] 1 [place] [address] PCP - General Internal Medicine 05/06/21 Henry Kelly MD Pulmonary Department 175 [facility], [address] [place] [address] Physician Pulmonary Disease 09/06/17 06/22/20 documented as of this encounter
--- OUTSIDE RECORDS SUMMARY | 2025-05-21 16:56 | XMS_ITS | Encounter Summary ---
Author Organization [facility] Address [address] [place] [address] Phone Care Team Providers Care Sales Training Representative Name Role Phone Caitlyn Bowie MD Primary Care Provider +1- [phone] Encounter Details Date Type Department Care Team (Late Contact Info) Description 03/24/2025 Documentation Only [facility] [address] [place] [address] Marina Abdi [address] [place] [address] Social History Tobacco Use Types [...] [facility] [address] [place] [address] Rubén Ashraf MD [address] [place] [address] Dr. [place] [address] documented as of this encounter Visit Diagnoses Not on filedocumented in this encounter Care Teams Sales Training Representative Relationship Specialty Start Date End Date Caitlyn Bowie MD [address] [place], [place] PCP - General Internal Medicine 09/24/24 documented as of this encounter
--- OUTSIDE RECORDS SUMMARY | 2025-05-21 16:56 | XMS_ITS | Encounter Summary ---
Author Organization [facility] Address [address] [place] [address] Care Team Providers Care Lining Repairer Name Role Phone Caitlyn Bowie MD Primary Care Provider +1- [phone] Encounter Details Date Type Department Care Team (Late st Contact Info) Description 03/01/2017 Scanned Document [facility] at [address] [place] [address] Norma Renee MD [address] [place] [address] 2 [place] [phone] Social History Tobacco Use Types Packs/Day Years [...] as of this encounter Care Teams Lining Repairer Relationship Specialty Start Date End Date Caitlyn Bowie MD [address] [address] PCP - General Internal Medicine 05/06/21 Henry Kelly MD Pulmonary Department [address] [place] [address], [address] [place] [address] Physician Pulmonary Disease 09/06/17 06/22/20 documented as of this encounter
--- OUTSIDE RECORDS SUMMARY | 2025-05-21 16:56 | XMS_ITS | Clinical Summary ---
Author Organization 175 [facility] Address [address] [place] [address] Phone Care Team Providers Care Jigger Machine Operator Name Role Phone Caitlyn Bowie MD Primary Care Provider [phone] Allergies Active Allergy Reactions Criticality Noted Date [...] 20 mg as needed by her previous property custodian which she has taken sporadically. I have asked her to take this daily to see if this improves her symptoms and she has a follow-up appointment with Dr. Shah on September 16 which she will keep. We also had a long conversation regarding the fact that she is seeing 3 different property custodian for the same problems. We informed [...] continues to see Dr. Avalos or her property custodian at [facility]. She verbalized understanding of this and [...] right lower leg 03/06/2019 Antiphospholipid antibody syndrome ([facility] V24) 12/24/2018 Adrenal insufficiency ([facility] V24) 08/23/2018 Allergic rhinitis 08/23/2018 Hyperparathyroidism ([facility] V24) 08/23/2018 MRSA infection 08/23/2018 Overview (05/16/2024): 06/2009, s/p thoracotomy infection Osteoarthritis 08/23/2018 Radiation-induced pulmonary fibrosis ([facility] V2 4) 11/13/2017 Bronchiectasis ([facility] V24, [facility] V28) 2017 Leg edema 08/08/2017 Restrictive lung disease 08/08/2017 Chronic obstructive pulmonar y disease ([facility] V24, [facility] V28) 04/13/2017 Fibromyalgia 04/13/2017 Congestive heart failure ([facility] V24, [facility] V 28) 04/04/2017 Heterozygous factor V Leiden mutation ([facility] V 24) 04/04/2017 Obstructive sleep apnea syndrome 04/04/2017 Overview (05/16/2024): CPAP Pleural effusion 04/04/2017 Pulmonary hypertension ([facility] V24, [facility] V28 ) 04/04/2017 Multiple pulmonary nodules 03/17/2017 [...] Team Description 05/14/2025 9:45 AM EST Treatment [address] [phone] Bruno Moreno M, PT Gait abnormality (Primary Dx); Cerebral lesion 05/12/2025 1:45 PM EST Treatment [address] [phone] Gene Marshall PTA Gait abnormality (Primary Dx); Cerebral lesion 05/12/2025 Telephone [facility] [address] [phone] Ayanna Jaffe MD 04/14/2025 10:00 AM EDT Evaluation [address] [phone] Bruno Moreno, PT Gait abnormality (Primary Dx); Cerebral lesion 04/14/2025 Plan of Care Documentation [address] [phone] 04/11/2025 Telephone Gastroenterology - [address] [place] [phone] Tim Gomes MD 03/20/2025 11:40 AM EDT Office Visit [address] [phone] Ayanna Jaffe MD Optic neuritis (Primary Dx); White matter lesion of central nervous system; Blurry vision 02/24/2025 Telephone Gastroenterology - [address] [phone] Tim Gomes MD 02/23/2025 11:40 AM EDT - 02/23/2025 4:22 PM EDT Emergency [facility] Emergency [address] [place] [phone] Celia Snider DO Diverticulitis (Primary Dx) Discharge Disposition: Home or Self Care 02/21/2025 4:30 PM EDT Office Visit [address] [phone] Shirley Chaidez PA Optic neuritis (Primary Dx) [...] PROCEDURE: HISTORICAL TONSILLECTOMY OTHER SURGICAL HISTORY PROCEDURE: WI RMVL LUNG XCP TOT PNEUMONECTOMY SLEEVE LOBECTOMY; [...] pathology report UPPER GASTROINTESTINAL ENDOSCOPY 05/03/2015 PROCEDURE: WI UPPER GI ENDOSCOPY PERFORMED MITRAL CLIP PROCEDURE Medical History Medical History Date Comments Akathisia 04/15/2013 DX:Akathisia Anxiety 12/07/2016 DX:Anxiety Bronchiectasis ([facility] V24, [facility] V28) 08/08/2017 DX:Bronchiectasis (HCC) Cataract 08/26/2014 DX:Cataract Chronic obstructive pulmonar y disease ([facility] V24, [facility] V28) 04/13/2017 DX:Chronic obstructive pulm onary disease (HCC) 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 DX:Complica cole migraine Congestive heart failure (CM S/HCC V24, [facility] V28) 04/04/2017 DX:Congestive heart failure (HCC) History of deep vein thrombosis 04/04/2017 DX:History of deep vein thrombosis Diverticulitis of sigmoid colon 12/15/2016 DX:Diverticulitis of sigmoid colon Elevated liver enzymes 09/23/2015 DX:Elevat ed liver enzymes Fibromyalgia 04/13/2017 DX:Fibromyalgia Gastroesophageal reflux disease 11/17/2016 DX:Gastroesophageal reflux disease Glaucoma suspect 08/26/2014 DX:Glaucoma dori pect Heterozygous factor V Leiden mutation ([facility] V24) 04/04/2017 DX:Heterozygous factor V [...] syndrome 02/18/2013 DX:Postc oncussion syndrome Pulmonary hypertension ([facility]/ [facility] V24, [facility] V28) 04/04/2017 DX:Pulmonary hypertension (H CC) Restrictive lung disease 08/08/2017 DX:Rest rictive lung disease 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 DX:Zinc deficien cy Obstructive sleep apnea syndrome 04/04/2017 DX:Obstructive sleep apnea syndrome; COMMENT: CPAP Radiation-induced pulmonary fibrosis ([facility] V24) 11/13/2017 DX:Radiation-induced pulmona ry fibrosis (HCC) Adrenal insufficiency ([facility] V24) 08/23/2018 DX:Adrenal insufficiency (HCC) Hyperparathyroidism ([facility] V24) 08/23/2018 DX:Hyperparathyroidism (HCC) Osteoporosis [...] Mx LLL resection, Chemo, RT, Cisplatin, Vinorelbine [phone] Antiphospholipid antibody sy ndrome ([facility] V24) 12/24/2018 DX:Antiphospholipid antibody syndrome (HCC) 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 Hyperparathyroidism (CMS/HCC V24) DX:Hyperparathyroidism (HCC) Adrenal insufficiency (CMS/HCC V24) DX:Adrenal insufficiency (HCC) Family History Medical [...] Care Team (Late st Contact Info) Description 05/26/2025 10:30 AM EST Treatment [facility] [address] [phone] Bruno Moreno, PT 175 [place] [address] 05/28/2025 1:30 PM EST Treatment [facility] [address] [phone] Gene Marshall PTA 05/29/2025 3:00 PM EST Office Visit [facility] [address] [phone] Ayanna Jaffe MD 175 [place] [address] 06/02/2025 10:30 AM EST Treatment [address] [phone] Bruno Moreno, PT [address] [place] [address] 06/04/2025 10:15 AM EST Treatment [address] [phone] Bruno Moreno, PT [address] [place] [address] Health Maintenance Due Date Last Done Comments [...] PT PT STG x 8 visis from [facility] on 04/14/2025 General No Bruno Moreno, [...] 4/5 L PT LTG 16 visits from [facility] on 04/14/2025 General No Bruno Moreno, [...] central nervous system Blurry vision NEUROMYELITIS OPTICA, [id number] Routine 03/20/2025 12:31 PM EDT Optic neuritis [...] reflex to titer (03/20/2025 12:31 PM EDT) [facility] MOG Antibody, Cell-based IFA Negative Negative 03/25/2025 1:05 AM EDT [facility] Blood Venous blood specimen / Unknown Venipuncture / Unknown 03/20/2025 12:31 PM EDT 03/20/2025 12:31 PM EDT Narrative [facility] - 03/25/2025 1:05 AM EDT Test(s) [id number] Antibody, Cell-based IFA was developed and its performance characteristics determined by [facility]. It has not been cleared or approved by the Food and Drug Administration. Performed at: 01 - [address] [id number] [employer] Manager: Melissa Wetzel MD, Phone: [phone] Ayanna Jaffe MD LAB BLOOD ORDERABLES Fin al Result [facility] * Neuromyelitis optica, [id number] (03/20/2025 12:31 PM EDT) [facility] NMO IgG Autoantibodies <1.5 0.0 - 3.0 U/mL 03/24/2025 3:05 PM EDT [facility] Comment: Negative: 0.0 - 3.0 Positive: >3.0 Blood Venous blood specimen / Unknown Venipuncture / Unknown 03/20/2025 12:31 PM EDT 03/20/2025 12:31 PM EDT Narrative [facility] - 03/24/2025 3:05 PM EDT Performed at: 01 - [facility] [id number] [employer] Manager: Melissa Wetzel MD, Phone: [phone] Ayanna Jaffe MD LAB BLOOD ORDERABLES Fin al Result [facility] * (ABNORMAL) CBC auto differential (03/20/2025 12:31 PM EDT) Only the most recent of2 resultswithin the time period is included. [facility] WBC 11.0(H) 4.8 - 10.8 K/mcL LAB HEMETOLOGY METHOD 03/20/2025 2:23 PM EDT [facility] RBC 3.50(L) 3.80 - 4.80 M/mcL LAB HEMETOLOGY METHOD 03/20/2025 2:23 PM EDT [facility] Hemoglobin 11.5 11.5 - 16.0 g/dL LAB HEMETOLOGY METHOD 03/20/2025 2:23 PM EDT [facility] Hematocrit 36.7 35.0 - 47.0 % LAB HEMETOLOGY METHOD 03/20/2025 2:23 PM EDT [facility] MCV 105.2(H) 79.0 - 98.0 FL LAB HEMETOLOGY METHOD 03/20/2025 2:23 PM EDT [facility] MCH 33.0(H) 27.0 - 32.0 pcg LAB HEMETOLOGY [facility]/20[facility] MCHC 31.3(L) 32.0 - 37.0 g/dL LAB HEMETOLOGY METHOD 03/20/2025 [facility] RDW 14.1 11.0 - 15.0 % LAB HEMETOLOGY METHOD 03/20/2025 2:23 PM EDT [facility] Platelets 243 130 - 400 K/mcL LAB HEMETOLOGY METHOD 03/20/2025 2:23 PM [facility] MPV 11.3(H) 7.0 - 11.0 FL LAB HEMETOLOGY METHOD 03/20/2025 [facility] NRBC 0.2 <1.0 % LAB HEMETOLOGY METHOD 03/20/2025 2:[facility] NRBC Absolute 0.02 <0.10 K/mcL LAB HEMETOLOGY METHOD 03/20/2025 2:23 PM [facility] Neutrophils Relative 75.9 % LAB HEMETOLOGY METHOD 03/20/2025 2:23 PM [facility] Lymphocytes Relative 8.7 % LAB HEMETOLOGY METHOD 03/20/2025 2:23 PM [facility] Monocytes Relative 12.2 % LAB HEMETOLOGY METHOD 03/20/2025 2:23 PM [facility] Eosinophils Relative 0.7 % LAB HEMETOLOGY METHOD 03/20/2025 2:[facility] Basophils Relative 0.7 % LAB HEMETOLOGY METHOD 03/20/2025 2:23 PM [facility] Immature Granulocytes Relative 1.8 % LAB HEMETOLOGY METHOD 03/20/2025 2:[facility] Neutrophils Absolute 8.36(H) 1.50 - 7.00 K/mcL LAB HEMETOLOGY METHOD 03/20/2025 2:23 PM EDT [facility] Lymphocytes Absolute 0.96(L) 1.00 - 5.00 K/mcL LAB HEMETOLOGY METHOD 03/20/2025 2:23 PM EDT [facility] Monocytes Absolute 1.34(H) 0.20 - 1.00 K/mcL LAB HEMETOLOGY METHOD 03/20/2025 2:23 PM EDT [facility] Eosinophils Absolute 0.08 0.00 [...] al Result [facility] [address] [place] [address], * Sedimentation rate (03/20/2025 12:31 PM EDT) Sed Rate 25 0 - 30 mm/hr LAB HEMETOLOGY METHOD 03/20/2025 2:14 PM EDT [facility] Blood Venous blood specimen / Unknown Venipuncture / Unknown 03/20/2025 12:31 PM EDT 03/20/2025 12:31 PM EDT Ayanna Jaffe MD LAB BLOOD ORDERABLES Fin al Result [facility]ER[facility] [place] [facility] [address] [place] [address], [place] [phone] * ECG-Annotated (02/24/2025) Provider Onbase MD ECG ORDERABLES Final Result * CT Head wo Contrast (02/23/2025 2:53 PM EDT) Anatomical Region Laterality Modality Head and Neck Computed Tomogra phy 02/23/2025 2:57 PM EDT Impressions 02/23/2025 3:01 PM EDT Impression: No acute hemorrhage or intracranial mass effect. No significant change. Telerad PA ([id number]) -------- FINAL REPORT -------- Dictated By: Fawn Levin Dictated Date: 02/23/2025 14:57 ET Assigned Physician: Fawn Levin Reviewed and Electronically Signed By: Fawn Levin Signed Date: 02/23/2025 15:01 ET Workstation ID: [id number] Transcribed By: Self Edit Transcribed Date: 02/23/2025 14:57 ET Narrative 02/23/2025 3:01 PM EDT History: Headache. Comparison: 12/10/24 Technique: Contiguous axial images were obtained at 2.5 mm intervals through the posterior fossa and at 5 mm intervals through the remainder of the brain without intravenous contrast. DLP: 808.85 mGy/cm [employer] Ltdpedoggyloot VCT Iterative reconstruction technique Findings: Moderate generalized [...] brain without intravenous contrast. DLP: 808.85 mGy/cm [employer]ogg[employer] VCT Iterative reconstruction technique Findings: Moderate generalized [...] mass effect. No significant change. Telerad EMELIA ([id number]) -------- FINAL REPORT -------- Dictated By: Fawn Levin Dictated Date: 02/23/2025 14:57 ET Assigned Physician: Fawn Levin Reviewed and Electronically Signed By: Fawn Levin Signed Date: 02/23/2025 15:01 ET Workstation ID: [id number] Transcribed By: Self Edit Transcribed Date: 02/23/2025 [...] appropriate, to exclude this possibility. Telerad PA ([id number]) -------- FINAL REPORT -------- Dictated By: Fawn Levin Dictated Date: 02/23/2025 15:01 ET Assigned Physician: Fawn Levin Reviewed and Electronically Signed By: Fawn Levin Signed Date: 02/23/2025 15:05 ET Workstation ID: [id number] Transcribed By: Self Edit Transcribed Date: 02/23/2025 15:01 ET Narrative 02/23/2025 3:05 PM EDT History: Left lower quadrant abdominal pain. Comparison: 08/23/23 Technique: Helical volumetric imaging of the abdomen and pelvis was performed without intravenous or oral contrast. DLP: 480.07 mGy/cm GE [employer]zymeRxpeed VCT Iterative reconstruction technique Findings: Chronic pleural-parenchymal [...] or oral contrast. DLP: 480.07 mGy/cm GE [employer] VCT Iterative reconstruction technique Findings: Chronic pleural-parenchymal [...] appropriate, to exclude this possibility. Telekarla KAPOOR ([id number]) -------- FINAL REPORT -------- Dictated By: Fawn Levin Dictated Date: 02/23/2025 15:01 ET Assigned Physician: Fawn Levin Reviewed and Electronically Signed By: Fawn Levin Signed Date: 02/23/2025 15:05 ET Workstation ID: [id number] Transcribed By: Self Edit Transcribed Date: 02/23/2025 15:01 ET Afsaneh KAPOOR IMG CT PROCEDURES Final Resu lt * Lactate, with reflex (02/23/2025 2:25 PM EDT) LACTIC ACID 1.1 0.4 - 2.0 mmol/L LAB CHEMISTRY METHOD 02/23/2025 3:25 PM EDT [facility] Blood Venous blood specimen / Unknown Venipuncture / Unknown 02/23/2025 2:25 PM EDT 02/23/2025 2:35 PM EDT Afsaneh KAPOOR LAB BLOOD ORDERABLES Final R esult Performing Organization Address City/[facility]/ZIP Co de Phone Number [facility] [address] [place] [address], [place] [phone] * Blood Culture, Peripheral Draw #2 (02/23/2025 [...] O RDERABLES Final Result Performing Organization Address [facility]/ZIP Co de Phone Number [facility] [address] [place] [address], [place] [phone] * XR Chest 1 View (02/23/2025 2:15 PM EDT) Anatomical Region Laterality Modality Body Radiographic Monserrat ging 02/23/2025 2:33 PM EDT Impressions 02/23/2025 2:37 PM EDT Impression: Stable radiographic appearance of the chest, including volume loss and chronic pleural-parenchymal opacity in the left hemithorax consistent with previously treated lung carcinoma. No acute process identified. Telerad EMELIA ([id number]) -------- FINAL REPORT -------- Dictated By: Fawn Levin Dictated Date: 02/23/2025 14:33 ET Assigned Physician: Fawn Levin Reviewed and Electronically Signed By: Fawn Levin Signed Date: 02/23/2025 14:37 ET Workstation ID: [id number] Transcribed By: Self Edit Transcribed Date: 02/23/2025 14:33 ET Narrative 02/23/2025 2:37 PM EDT History: Dyspnea. Personal history of lung carcinoma. Comparison: 07/30/23, thoracic CT 09/09/24 [place], [place] Findings: Portable AP upright chest at [...] lung carcinoma. Comparison: 07/30/23, thoracic CT 09/09/24 [place], [place] Findings: Portable AP upright chest at [...] treated lung carcinoma. No acute process identified. Adomoskarla KAPOOR ([id number]) -------- FINAL REPORT -------- Dictated By: Fawn Levin Dictated Date: 02/23/2025 14:33 ET Assigned Physician: Fawn Levin Reviewed and Electronically Signed By: Fawn Levin Signed Date: 02/23/2025 14:37 ET Workstation ID: [id number] Transcribed By: Self Edit Transcribed Date: 02/23/2025 14:33 ET us Afsaneh KAPOOR IMG XR PROCEDURES Final Resu lt * Urinalysis with reflex microscopic and culture (02/23/2025 2:04 PM EDT) Specific [place] Urine 1.006 1.003 - 1.030 LAB URINALYSIS - AUTOMATED METHOD 02/23/2025 2:17 PM EDT [facility] pH, Urine 7.5 5.0 - 8.0 pH LAB URINALYSIS - AUTOMATED METHOD 02/23/2025 2:17 PM [facility] Leukocytes, Urine Negative Negative LAB URINALYSIS - AUTOMATED METHOD 02/23/2025 2:17 PM [facility] Nitrite, Urine Negative Negative LAB URINALYSIS - AUTOMATED METHOD 02/23/2025 2:17 PM T [facility] Protein, Urine Negative <=Trace mg/dL LAB URINALYSIS - AUTOMATED METHOD 02/23/2025 2:17 PM [facility] Glucose, Urine Negative Negative mg/dL LAB URINALYSIS - AUTOMATED METHOD 02/23/2025 2:17 PM [facility] Ketones, Urine Negative Negative mg/dL LAB URINALYSIS - AUTOMATED METHOD 02/23/2025 2:17 PM T [facility] Urobilinogen, Urine 0.2 0.2 - 1.0 mg/dL LAB URINALYSIS - AUTOMATED METHOD 02/23/2025 2:17 PM [facility] Bilirubin, Urine Negative Negative LAB URINALYSIS - AUTOMATED METHOD 02/23/2025 2:17 PM EDT [facility] Blood, Urine Negative Negative LAB URINALYSIS - AUTOMATED METHOD 02/23/2025 2:17 PM [facility] Urine Urine specimen obtained by clean catch procedure / Unknown Non-blood Collection / Unknown 02/23/2025 2:04 PM EDT 02/23/2025 2:05 PM EDT us Afsaneh KAPOOR LAB URINE ORDERABLES Final R esult [facility] [address] [place] [address], [place] [phone] * Martinez urine culture tube (02/23/2025 2:04 PM EDT) [facility] Extra Tube Hold for add-ons. 02/23/2025 4:01 PM EDT [facility] Comment:Auto resulted. Urine Urine specimen obtained by clean catch procedure / Unknown Non-blood Collection / Unknown 02/23/2025 2:04 PM EDT 02/23/2025 2:05 PM EDT Afsaneh KAPOOR LAB URINE ORDERABLES Final R esult Performing Organization Address City/[facility]/ZIP Co de Phone Number [facility] [address] [place] [address], [place] [phone] * Troponin I high sensitivity (02/23/2025 1:15 PM EDT) [facility] High Sensitivity Troponin I 25 <=54 ng/L [...] ORDERABLES Final R esult Performing Organization Address City/[facility]/ZIP Co de Phone Number [facility] [address] [place] [address], [place] [phone] * (ABNORMAL) Prothrombin time with INR (02/23/2025 1:15 PM EDT) [facility] Protime 14.9(H) 10.6 - 13.9 sec LAB COAGULATION METHOD 02/23/2025 1:52 PM EDT [facility] INR 1.2 LAB COAGULATION METHOD 02/23/2025 1:52 PM EDT [facility] Blood Venous blood specimen / Unknown Venipuncture / Unknown 02/23/2025 1:15 PM EDT 02/23/2025 1:40 PM EDT Afsaneh KAPOOR LAB BLOOD ORDERABLES Final R esult [facility] [address] [place] [address], [place] [phone] * Type and screen (02/23/2025 1:15 PM EDT) [facility] ABO Group A 02/23/2025 2:47 PM EDT [facility] Rh Type Positive 02/23/2025 2:47 PM EDT [facility] Antibody Screen Negative 02/23/2025 2:47 PM EDT [facility] Blood Venous blood specimen / Unknown Venipuncture / Unknown 02/23/2025 1:15 PM EDT 02/23/2025 1:40 PM EDT Afsaneh KAPOOR LAB BLOOD BANK TEST ORDERABL ES Final Result [facility] [address] [place] [address], [place] [phone] * (ABNORMAL) Comprehensive Metabolic Panel (CMP) (02/23/2025 1:15 PM EDT) [facility] Sodium 136 133 - 145 mmol/L LAB CHEMISTRY METHOD 02/23/2025 2:13 PM EDT [facility] Potassium 3.5 3.5 - 5.5 mmol/L LAB CHEMISTRY METHOD 02/23/2025 2:13 PM [facility] Chloride 97 96 - 110 mmol/L LAB CHEMISTRY METHOD 02/23/2025 2:13 PM [facility] CO2 33(H) 21 - 32 mmol/L LAB CHEMISTRY METHOD 02/23/2025 2:13 PM [facility] Anion Gap 6 3 - 11 LAB CHEMISTRY METHOD 02/23/2025 2:13 PM [facility] Glucose 100 70 - 100 mg/dL LAB CHEMISTRY METHOD 02/23/2025 2:13 PM [facility] BUN 23 5 - 25 mg/dL LAB CHEMISTRY METHOD 02/23/2025 2:13 PM [facility] Creatinine 0.83 0.50 - 1.10 mg/dL LAB CHEMISTRY METHOD 02/23/2025 2:13 PM [facility] eGFR 71 >=60 mL/min/1. 73m2 LAB CHEMISTRY METHOD 02/23/2025 2:13 PM [facility] Comment:Calculation based on the Chronic Kidney Disease Epidemiology Collaboration (CKD-EPI) equation refit without adjustment for race. BUN/Creatinine Ratio 27.7 LAB CHEMISTRY METHOD 02/23/2025 2:13 PM [facility] Calcium 10.0 8.5 - 10.5 mg/dL LAB CHEMISTRY METHOD 02/23/2025 2:13 PM [facility] AST (SGOT) 29 10 - 42 unit/L LAB CHEMISTRY METHOD 02/23/2025 2:13 PM [facility] ALT (SGPT) 24 10 - 60 unit/L LAB CHEMISTRY METHOD 02/23/2025 2:13 PM [facility] Alkaline Phosphatase 72 42 - 121 unit/L LAB CHEMISTRY METHOD 02/23/2025 2:13 PM [facility] Total Protein 6.9 6.0 - 8.0 g/dL LAB CHEMISTRY METHOD 02/23/2025 2:13 PM EDT [facility] Albumin 3.5 3.2 - 5.0 g/dL LAB CHEMISTRY METHOD 02/23/2025 2:13 PM EDT [facility] Total Bilirubin 0.5 0.0 - 1.4 mg/dL LAB CHEMISTRY METHOD 02/23/2025 2:13 PM EDT [facility] Blood Venous blood specimen / Unknown Venipuncture / Unknown 02/23/2025 1:15 PM EDT 02/23/2025 1:39 PM EDT Afsaneh KAPOOR LAB BLOOD ORDERABLES Final R esult [facility] [address] [place] [address], * 12-Lead ECG (02/23/2025 1:05 PM EDT) Ventricular Rate ECG 79 BPM GEMUSE Atrial Rate 79 BPM GEMUSE P-R Interval 164 ms GEMUSE QRS Duration 138 ms GEMUSE Q-T Interval 422 ms GEMUSE QTc 483 ms GEMUSE P Wave [place] 68 degrees GEMUSE R [place] -59 degrees GEMUSE T [place] 62 degrees GEMUSE ECG Interpretation Normal sinus [...] GEMUSE from Last 3 Months Insurance MEDICARE [place] Advance Directives Documents on File Type Date Recorded Patient Induction Machine Setter Expl anation Health Care Decision (hx) 10/18/2013 [...] (hx) 10/04/2013 AD LACEY DIRECTIVE Care Teams Jigger Machine Operator Relationship Specialty [place] [address] [place] [id number] PCP - General Internal Medicine 12/10/24
--- OUTSIDE RECORDS SUMMARY | 2025-05-21 16:56 | XMS_ITS | Encounter Summary ---
Author Organization [facility] Address [address] [place] [address] Care Team Providers Care Nursery Technician Name Role Phone Caitlyn Bowie MD Primary Care Provider +1- [phone] Encounter Details Date Type Department Care Team (Late st Contact Info) Description 06/27/2019 Scanned Document [facility] [address] [place] [address] Norma Renee MD [address] [place] [address] 2 [place] [phone] Social History Tobacco Use Types Packs/Day Years [...] as of this encounter Care Teams Nursery Technician Relationship Specialty Start Date End Date Caitlyn Bowie MD 34[address] [facility] 1 [place] [address] PCP - General Internal Medicine 05/06/21 Henry Kelly MD Pulmonary Department 175 [facility], [address] [place] [address] Physician Pulmonary Disease 09/06/17 06/22/20 documented as of this encounter
--- OUTSIDE RECORDS SUMMARY | 2025-05-21 16:56 | XMS_ITS | Encounter Summary ---
Author Organization [facility] Address [address] [place] [address] Phone Care Team Providers Care Pruner Name Role Phone Caitlyn Bowie MD Primary Care Provider +1- [phone] Encounter Details Date Type Department Care Team (Late Contact Info) Description 12/10/2024 Documentation Only [facility] [address] [place] [address] Marina Abdi [address] [place] [address] Social History Tobacco [...] [facility] [address] [place] [address] Rubén Ashraf MD [address] [place] [address] [place] [address] documented as of this encounter Visit Diagnoses Not on filedocumented in this encounter Care Teams Pruner Relationship Specialty Start Date End Date Caitlyn Bowie MD [address] [place], [place] PCP - General Internal Medicine 09/24/24 documented as of this encounter
--- OUTSIDE RECORDS SUMMARY | 2025-05-21 16:57 | XMS_ITS | Encounter Summary ---
Author Organization [facility] Address [address] [place] [address] Care Team Providers Care Supervisor Transferring And Boxing Name Role Phone Caitlyn Bowie MD Primary Care Provider +1- [phone] Encounter Details Date Type Department Care Team ([facility] st Contact Info) Description 08/21/2017 Scanned Document [facility] Health Information Management [address] [place] [address] External, Provider Social History Tobacco Use Types [...] as of this encounter Care Teams Supervisor Transferring And Boxing Relationship Specialty Start Date End Date Caitlyn Bowie MD 3400 [facility] 1 [place] [address] PCP - General Internal Medicine 05/06/21 Henry Kelly MD Pulmonary Department 175 [facility], [address] [place] [address] Physician Pulmonary Disease 09/06/17 06/22/20 documented as of this encounter
--- OUTSIDE RECORDS SUMMARY | 2025-05-21 16:57 | XMS_ITS | Encounter Summary ---
Author Organization [facility] Address [address] [place] [address] Care Team Providers Care Playground Worker Name Role Phone Caitlyn Bowie MD Primary Care Provider +1- [phone] Encounter Details Date Type Department Care Team (Late st Contact Info) Description 04/02/2021 Scanned Document INTERFACE DEFAULT [address] [place] [address] System, Provider Not In Social History Tobacco [...] documented as of this encounter Care Teams Playground Worker Relationship Specialty Start Date End Date Caitlyn Bowie MD [address] [address] PCP - General Internal Medicine 05/06/21 documented as of this encounter
--- OUTSIDE RECORDS SUMMARY | 2025-05-21 16:57 | XMS_ITS | Encounter Summary ---
Author Organization [facility] and [facility] Address [address] [place] [address] Care Team Providers Care Shipping Receiving Clerk Name Role Phone Caitlyn Bowie MD Primary Care Provider +1- [phone] Encounter Details Date Type Department Care Team (Late st Contact Info) Description 04/11/2021 Scanned Document [facility] Health Information Management [address] [place] [address] External, Provider Social History Tobacco Use Types [...] as of this encounter Care Teams Shipping Receiving Clerk Relationship Specialty Start Date End Date Caitlyn Bowie MD [address] [address] PCP - General Internal Medicine 05/06/21 documented as of this encounter
--- OUTSIDE RECORDS SUMMARY | 2025-05-21 16:57 | XMS_ITS | Encounter Summary ---
Author Organization [facility] Address [address] [place] [address] Care Team Providers Care Profiler Hand Name Role Phone Caitlyn Bowie MD Primary Care Provider +1- [phone] Encounter Details Date Type Department Care Team ([facility] st Contact Info) Description 02/25/2021 Scanned Document INTERFACE DEFAULT [address] [place] [address] System, Provider Not In Social History Tobacco [...] documented as of this encounter Care Teams Profiler Hand Relationship Specialty Start Date End Date Caitlyn Bowie MD [address] [address] PCP - General Internal Medicine 05/06/21 documented as of this encounter
--- OUTSIDE RECORDS SUMMARY | 2025-05-21 16:57 | XMS_ITS | Encounter Summary ---
Author Organization [facility] Address [address] [place] [address] Care Team Providers Care Chemistry Associate Name Role Phone Caitlyn Bowie MD Primary Care Provider +1- [phone] Encounter Details Date Type Department Care Team ([facility] st Contact Info) Description 04/10/2021 Scanned Document INTERFACE DEFAULT [address] [place] [address] System, Provider Not In Social History Tobacco [...] as of this encounter Care Teams Chemistry Associate Relationship Specialty Start Date End Date Caitlyn Bowie MD [facility] [address] [address] PCP - General Internal Medicine 05/06/21 documented as of this encounter
--- OUTSIDE RECORDS SUMMARY | 2025-05-21 16:57 | XMS_ITS | Encounter Summary ---
Author Organization [facility] Address [address] [place] [address] Care Team Providers Care Neurosurgical Nurse Practitioner Name Role Phone Caitlyn Bowie MD Primary Care Provider +1- [phone] Encounter Details Date Type Department Care Team ([facility] st Contact Info) Description 03/08/2021 Scanned Document INTERFACE DEFAULT [address] [place] [address] System, Provider Not In Social History Tobacco [...] documented as of this encounter Care Teams Neurosurgical Nurse Practitioner Relationship Specialty Start Date End Date Caitlyn Bowie MD [address] [address] PCP - General Internal Medicine 05/06/21 documented as of this encounter
--- OUTSIDE RECORDS SUMMARY | 2025-05-21 16:57 | XMS_ITS | Encounter Summary ---
Author Organization [facility] Address [address] [place] [address] Care Team Providers Care Insole Buffer Name Role Phone Caitlyn Bowie MD Primary Care Provider +1- [phone] Encounter Details Date Type Department Care Team ([facility] st Contact Info) Description 03/23/2021 Scanned Document INTERFACE DEFAULT [address] [place] [address] System, Provider Not In Social History Tobacco [...] as of this encounter Care Teams Insole Buffer Relationship Specialty Start Date End Date Caitlyn Bowie MD [address] [address] PCP - General Internal Medicine 05/06/21 documented as of this encounter
--- OUTSIDE RECORDS SUMMARY | 2025-05-21 16:57 | XMS_ITS | Encounter Summary ---
Author Organization [facility] Address [address] [place] [address] Care Team Providers Care Pc Tech Name Role Phone Caitlyn Bowie MD Primary Care Provider +1- [phone] Encounter Details Date Type Department Care Team ([facility] st Contact Info) Description 02/24/2021 Scanned Document INTERFACE DEFAULT [address] [place] [address] System, Provider Not In Social History Tobacco [...] documented as of this encounter Care Teams Pc Tech Relationship Specialty Start Date End Date Caitlyn Bowie MD [facility] [address] [address] PCP - General Internal Medicine 05/06/21 documented as of this encounter
--- OUTSIDE RECORDS SUMMARY | 2025-05-21 16:57 | XMS_ITS | Encounter Summary ---
Author Organization [facility] Address [address] [place] [address] Care Team Providers Care Dispute Coordinator Name Role Phone Caitlyn Bowie MD Primary Care Provider +1- [phone] Encounter Details Date Type Department Care Team ([facility] st Contact Info) Description 04/12/2021 Scanned Document INTERFACE DEFAULT [address] [place] [address] System, Provider Not In Social History Tobacco [...] documented as of this encounter Care Teams Dispute Coordinator Relationship Specialty Start Date End Date Caitlyn Bowie MD [address] [address] PCP - General Internal Medicine 05/06/21 documented as of this encounter
--- OUTSIDE RECORDS SUMMARY | 2025-05-21 16:57 | XMS_ITS | Encounter Summary ---
Author Organization [facility] Address [address] [place] [address] Care Team Providers Care Director Of Finance Name Role Phone Caitlyn Bowie MD Primary Care Provider +1- [phone] Encounter Details Date Type Department Care Team ([facility] st Contact Info) Description 04/22/2021 Scanned Document INTERFACE DEFAULT [address] [place] [address] System, Provider Not In Social History Tobacco [...] of this encounter Care Teams Director Of Finance Relationship Specialty Start Date End Date Caitlny Bowie MD [address] [address] PCP - General Internal Medicine 05/06/21 documented as of this encounter
--- OUTSIDE RECORDS SUMMARY | 2025-05-21 16:57 | XMS_ITS | Encounter Summary ---
Author Organization [facility] and [facility] Address [address] [place] [address] Care Team Providers Care Bicycle I Assembler Name Role Phone Caitlyn Bowie MD Primary Care Provider +1- [phone] Encounter Details Date Type Department Care Team (Late st Contact Info) Description 03/01/2021 Scanned Document INTERFACE DEFAULT [address] [place] [place] [address] System, Provider Not In Social History Tobacco [...] as of this encounter Care Teams Bicycle I Assembler Relationship Specialty Start Date End Date Caitlyn Bowie MD [address] [address] PCP - General Internal Medicine 05/06/21 documented as of this encounter
--- OUTSIDE RECORDS SUMMARY | 2025-05-21 16:57 | XMS_ITS | Encounter Summary ---
Author Organization [facility] and [facility] Address [address] [place] [address] Care Team Providers Care Director Of Curriculum And Instruction Name Role Phone Caitlyn Bowie MD Primary Care Provider +1- [phone] Encounter Details Date Type Department Care Team ([facility] st Contact Info) Description 04/11/2021 Scanned Document INTERFACE DEFAULT [address] [place] [address] System, Provider Not In Social History Tobacco [...] End Date Caitlyn Bowie MD [address] [address] PCP - General Internal Medicine 05/06/21 documented as of this encounter
--- OUTSIDE RECORDS SUMMARY | 2025-05-21 16:57 | XMS_ITS | Encounter Summary ---
Author Organization [facility] and [facility] Address [address] [place] [address] Care Team Providers Care Brazer Furnace Name Role Phone Caitlyn Bowie MD Primary Care Provider +1- [phone] Encounter Details Date Type Department Care Team (Late st Contact Info) Description 03/16/2021 Scanned Document INTERFACE DEFAULT [address] [place] [address] System, Provider Not In Social History Tobacco [...] as of this encounter Care Teams Brazer Furnace Relationship Specialty Start Date End Date Caitlyn Bowie MD [address] [address] PCP - General Internal Medicine 05/06/21 documented as of this encounter
--- OUTSIDE RECORDS SUMMARY | 2025-05-21 16:57 | XMS_ITS | Encounter Summary ---
Author Organization [facility] Address [address] [place] [address] Care Team Providers Care Railroad Car Cleaning Supervisor Name Role Phone Caitlyn Bowie MD Primary Care Provider +1- [phone] Encounter Details Date Type Department Care Team (Late st Contact Info) Description 08/09/2017 Scanned Document [facility] at [address] [place] [address] System, Provider Not In Social History Tobacco [...] as of this encounter Care Teams Railroad Car Cleaning Supervisor Relationship Specialty Start Date End Date Caitlyn Bowie MD 3400 [facility] 1 [place] [address] PCP - General Internal Medicine 05/06/21 Henry Kelly MD Pulmonary Department 175 [facility], [address] [place] [address] Physician Pulmonary Disease 09/06/17 06/22/20 documented as of this encounter
--- OUTSIDE RECORDS SUMMARY | 2025-05-21 16:57 | XMS_ITS | Encounter Summary ---
Author Organization [facility] Address [address] [place] [address] Care Team Providers Care Transportation Supervisor Name Role Phone Caitlyn Bowie MD Primary Care Provider +1- [phone] Encounter Details Date Type Department Care Team (Late st Contact Info) Description 03/22/2021 Scanned Document INTERFACE DEFAULT [address] [place] [address] System, Provider Not In Social History Tobacco [...] as of this encounter Care Teams Transportation Supervisor Relationship Specialty Start Date End Date Caitlyn Bowie MD [address] [address] PCP - General Internal Medicine 05/06/21 documented as of this encounter
--- OUTSIDE RECORDS SUMMARY | 2025-05-21 16:57 | XMS_ITS | Encounter Summary ---
Author Organization [facility] Address [address] [place] [address] Care Team Providers Care Outsole Cutter Machine Name Role Phone Caitlyn Bowie MD Primary Care Provider +1- [phone] Encounter Details Date Type Department Care Team (Late st Contact Info) Description 03/14/2021 Scanned Document INTERFACE DEFAULT [address] [place] [address] System, Provider Not In Social History Tobacco [...] as of this encounter Care Teams Outsole Cutter Machine Relationship Specialty Start Date End Date Caityln Bowie MD [address] [address] PCP - General Internal Medicine 05/06/21 documented as of this encounter
--- OUTSIDE RECORDS SUMMARY | 2025-05-21 16:57 | XMS_ITS | Encounter Summary ---
Author Organization [facility] Address [address] [place] [address] Care Team Providers Care Rat Culturist Name Role Phone Caitlyn Bowie MD Primary Care Provider +1- [phone] Encounter Details Date Type Department Care Team ([facility] st Contact Info) Description 06/07/2017 Scanned Document [facility] Health Information Management [address] [place] [address] External, Provider Social History Tobacco Use Types [...] 3400 [facility] 1 [place] [address] PCP - General Internal Medicine 05/06/21 Henry Kelly MD Pulmonary Department 175 [facility], [address] [place] [address] Physician Pulmonary Disease 09/06/17 06/22/20 documented as of this encounter
--- OUTSIDE RECORDS SUMMARY | 2025-05-21 16:57 | XMS_ITS | Encounter Summary ---
Author Organization [facility] Address [address] [place] [address] Care Team Providers Care Incendiary Powder Mixer Name Role Phone Caitlyn Bowie MD Primary Care Provider +1- [phone] Encounter Details Date Type Department Care Team ([facility] st Contact Info) Description 04/16/2021 Scanned Document INTERFACE DEFAULT [address] [place] [address] System, Provider Not In Social History Tobacco [...] documented as of this encounter Care Teams Incendiary Powder Mixer Relationship Specialty Start Date End Date Caitlyn Bowie MD [address] [address] PCP - General Internal Medicine 05/06/21 documented as of this encounter
--- OUTSIDE RECORDS SUMMARY | 2025-05-21 16:57 | XMS_ITS | Encounter Summary ---
Author Organization [facility] and [facility] Address [address] [place] [address] Care Team Providers Care Trial Management Associate Name Role Phone Caitlyn Bowie MD Primary Care Provider +1- [phone] Encounter Details Date Type Department Care Team ([facility] st Contact Info) Description 02/28/2021 Scanned Document INTERFACE DEFAULT [address] [place] [address] System, Provider Not In Social History Tobacco [...] documented as of this encounter Care Teams Trial Management Associate Relationship Specialty Start Date End Date Caitlyn Bowie MD [address] [address] PCP - General Internal Medicine 05/06/21 documented as of this encounter
--- OUTSIDE RECORDS SUMMARY | 2025-05-21 16:57 | XMS_ITS | Encounter Summary ---
Author Organization [facility] Address [address] [place] [address] Care Team Providers Care Restrooms Or Lounges Maid Name Role Phone Caitlyn Bowie MD Primary Care Provider +1- [phone] Encounter Details Date Type Department Care Team (Late st Contact Info) Description 03/11/2021 Scanned Document INTERFACE DEFAULT [address] [place] [address] System, Provider Not In Social History Tobacco [...] documented as of this encounter Care Teams Restrooms Or Lounges Maid Relationship Specialty Start Date End Date Caitlyn Bowie MD [address] [address] PCP - General Internal Medicine 05/06/21 documented as of this encounter
--- OUTSIDE RECORDS SUMMARY | 2025-05-21 16:57 | XMS_ITS | Encounter Summary ---
Author Organization [facility] Address [address] [place] [address] Care Team Providers Care Burnisher Name Role Phone Caitlyn Bowie MD Primary Care Provider +1- [phone] Encounter Details Date Type Department Care Team ([facility] st Contact Info) Description 04/13/2021 Scanned Document INTERFACE DEFAULT [address] [place] [address] System, Provider Not In Social History Tobacco [...] documented as of this encounter Care Teams Burnisher Relationship Specialty Start Date End Date Caitlyn Bowie MD [address] [address] PCP - General Internal Medicine 05/06/21 documented as of this encounter
--- OUTSIDE RECORDS SUMMARY | 2025-05-21 16:57 | XMS_ITS | Encounter Summary ---
Author Organization [facility] Address [address] [place] [address] Care Team Providers Care Ship Rigger Name Role Phone Caitlyn Bowie MD Primary Care Provider +1- [phone] Encounter Details Date Type Department Care Team ([facility] st Contact Info) Description 04/21/2021 Scanned Document INTERFACE DEFAULT [address] [place] [address] System, Provider Not In Social History Tobacco [...] as of this encounter Care Teams Ship Rigger Relationship Specialty Start Date End Date Caitlyn Bowie MD [address] [address] PCP - General Internal Medicine 05/06/21 documented as of this encounter
--- OUTSIDE RECORDS SUMMARY | 2025-05-21 16:57 | XMS_ITS | Encounter Summary ---
Author Organization [facility] Address [address] [place] [address] Care Team Providers Care Research Administrator Name Role Phone Caitlyn Bowie MD Primary Care Provider +1- [phone] Encounter Details Date Type Department Care Team (Late st Contact Info) Description 03/15/2021 Scanned Document INTERFACE DEFAULT [address] [place] [address] System, Provider Not In Social History Tobacco [...] as of this encounter Care Teams Research Administrator Relationship Specialty Start Date End Date Caitlyn Bowie MD [address] [address] PCP - General Internal Medicine 05/06/21 documented as of this encounter
--- OUTSIDE RECORDS SUMMARY | 2025-05-21 16:57 | XMS_ITS | Encounter Summary ---
Author Organization [facility] and [facility] Address [address] [place] [address] Care Team Providers Care Drop Forge Operator Name Role Phone Caitlyn Bowie MD Primary Care Provider +1- [phone] Encounter Details Date Type Department Care Team (Late st Contact Info) Description 03/24/2021 Scanned Document INTERFACE DEFAULT [address] [place] [address] System, Provider Not In Social History Tobacco [...] as of this encounter Care Teams Drop Forge Operator Relationship Specialty Start Date End Date Caitlyn Bowie MD [address] [address] PCP - General Internal Medicine 05/06/21 documented as of this encounter
--- OUTSIDE RECORDS SUMMARY | 2025-05-21 16:57 | XMS_ITS | Patient Health Record ---
Author Organization [facility] Address [address] [facility] [address] [place] [address] Care Team Providers Care Phonograph Needle Tip Maker Name Role Phone EVELIN RAMSAY Primary Care Provider Yenny Hou Unavailable [phone] Allergies Allergen (clinical drug ingredient) Drug/Non Drug [...] 25MCG 1 ORAL daily; Durati on: -3 [facility] 06/10/2014 Active ZyrTEC Allergy 10MG 1 [...] 50MG 1 ORAL at bedtime; Duration: -3 [facility] 06/10/2014 Active Meclizine HCl 25 MG 1 tablet as needed Orally [facility] 06/10/2014 Active Albuterol Sulfate (2.5 MG/3ML)0.083% Inhalation 4 x a day prn 06/10/2014 Active Valium 5MG 1 tablet as needed O RAL at bedtime, 1/2 tab prn during the day [facility] 06/10/2014 Active Social History Tobacco Use: [...] Status Risk Notes Problem Postmenopausal atrophic vaginitis (71615303) Postmenopausal atrophic vaginitis (N95.2) Active confirmed Problem Age-related osteoporosis (717590881) Age-related osteoporosis without current pathological fracture (M81.0) Active confirmed Problem Urgent desire to urinate (87028569) Urgency of urination (R39.15) Active confirmed 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 Problem Chronic systolic heart failure (429945061) Chronic systolic (congestive) heart failure (I50.22) Active confirmed Problem Chronic obstructive pulmonary disease (95579105) Chronic obstructive pulmonary disease, unspecified (J44.9) Active confirmed Problem Functional urinary incontinence (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) Functional 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) Active confirmed Problem Personal history of primary malignant neoplasm of bronchus (072431331) 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) Active confirmed Vital Signs Temperature 97.7 degrees Fahrenheit 07/18/2024 Blood pressure diastolic 62 mm Hg 07/18/2024 Height 63 in 07/18/2024 Blood pressure systolic 102 mm Hg 07/18/2024 Weight 126 lbs 07/18/2024 BMI 22.32 kg/m2 07/18/2024 Encounters Encounter Location Date Provider Diagnosis Total [employer] [facility] [address] [address] 07/09/2024 Yenny Elizalde Urgency of urination R39.15 ; Acute vaginitis N76.0 and Postmenopausal atrophic vaginitis N95.2 [place] [address] [employer] [address] [address] 07/18/2024 Yenny Elizalde Encounter for screening mammogram for malignant neoplasm of breast Z12.31 and Mastodynia N64.4 [place] [address] [employer] [address] [address] 06/11/2024 Yenny Elizalde Assessments Encounter Date Diagnosis [...] MEDICARE [address] [place] [id number] SHIRLEY CINDA Self - patient is the insured [employer] [address] [place] [address] [phone] [id number] DANIEL AWTSONE Self - patient is the insured Medical [...]
--- OUTSIDE RECORDS SUMMARY | 2025-05-21 16:58 | XMS_ITS | Encounter Summary ---
Author Organization [facility] and [facility] Address [address] [place] [address] Care Team Providers Care Crm Technical Lead Name Role Phone Caitlyn Bowie MD Primary Care Provider +1- [phone] Encounter Details Date Type Department Care Team ([facility] st Contact Info) Description 01/26/2018 Scanned Document [facility] Health Information Management [address] [place] [address] External, Provider Social History Tobacco Use Types [...] documented as of this encounter Care Teams Crm Technical Lead Relationship Specialty Start Date End Date Caitlyn Bowie MD 3400 [facility] [address] 1 [place] [address] PCP - General Internal Medicine 05/06/21 Henry Kelly MD Pulmonary Department 175 [facility], [address] [place] [address] Physician Pulmonary Disease 09/06/17 06/22/20 documented as of this encounter
--- OUTSIDE RECORDS SUMMARY | 2025-05-21 16:58 | XMS_ITS | Encounter Summary ---
Author Organization [facility] Address [address] [place] [address] Care Team Providers Care Strip Mill Operator Name Role Phone Caitlyn Bowie MD Primary Care Provider +1- [phone] Encounter Details Date Type Department Care Team ([facility] st Contact Info) Description 01/26/2018 Scanned Document [facility] Health Information Management [address] [place] [address] External, Provider Social History Tobacco Use Types [...] documented as of this encounter Care Teams Strip Mill Operator Relationship Specialty Start Date End Date Caitlyn Bowie MD [address] [address] PCP - General Internal Medicine 05/06/21 Henry Kelly MD Pulmonary Department 175 [facility], [address] [place] [address] Physician Pulmonary Disease 09/06/17 06/22/20 documented as of this encounter
--- OUTSIDE RECORDS SUMMARY | 2025-05-21 16:58 | XMS_ITS | Encounter Summary ---
Author Organization [facility] and [facility] Address [address] [place] [address] Care Team Providers Care Radiology Director Name Role Phone Caitlyn Bowie MD Primary Care Provider +1- [phone] Encounter Details Date Type Department Care Team (Late st Contact Info) Description 02/11/2021 Scanned Document INTERFACE DEFAULT [address] [place] [address] System, Provider Not In Social History Tobacco [...] as of this encounter Care Teams Radiology Director Relationship Specialty Start Date End Date Caitlyn Bowie MD [address] [address] PCP - General Internal Medicine 05/06/21 documented as of this encounter
--- OUTSIDE RECORDS SUMMARY | 2025-05-21 16:58 | XMS_ITS | Encounter Summary ---
Author Organization [facility] and [facility] Address [address] [place] [address] Care Team Providers Care Environmental Services Attendant Name Role Phone Caitlyn Bowie MD Primary Care Provider +1- [phone] Encounter Details Date Type Department Care Team ([facility] st Contact Info) Description 02/02/2018 Scanned Document [facility] Health Information Management [address] [place] [address] External, Provider Social History Tobacco Use Types [...] as of this encounter Care Teams Environmental Services Attendant Relationship Specialty Start Date End Date Caitlyn Bowie MD [address] [address] PCP - General Internal Medicine 05/06/21 Henry Kelly MD Pulmonary Department 175 [facility], [address] [place] [address] Physician Pulmonary Disease 09/06/17 06/22/20 documented as of this encounter
--- OUTSIDE RECORDS SUMMARY | 2025-05-21 16:58 | XMS_ITS | Encounter Summary ---
Author Organization [facility] and [facility] Address [address] [place] [address] Care Team Providers Care Tray Delivery Aide Name Role Phone Caitlyn Bowie MD Primary Care Provider +1- [phone] Encounter Details Date Type Department Care Team ([facility] st Contact Info) Description 06/25/2015 Scanned Document [facility] Health Information Management [address] [place] [address] External, Provider Social History Tobacco Use Types [...] as of this encounter Care Teams Tray Delivery Aide Relationship Specialty Start Date End Date Caitlyn Bowie MD [address] [address] PCP - General Internal Medicine 05/06/21 Henry Kelly MD Pulmonary Department 175 [facility], [address] [place] [address] Physician Pulmonary Disease 09/06/17 06/22/20 documented as of this encounter
--- OUTSIDE RECORDS SUMMARY | 2025-05-21 16:58 | XMS_ITS | Encounter Summary ---
Author Organization [facility] and [facility] Address [address] [place] [address] Care Team Providers Care Precast Concrete Products Installer Name Role Phone Caitlyn Bowie MD Primary Care Provider +1- [phone] Encounter Details Date Type Department Care Team ([facility] st Contact Info) Description 01/26/2018 Scanned Document [facility] Health Information Management [address] [place] [address] External, Provider Social History Tobacco Use Types [...] MD 3400 [facility] 1 [place] [address] PCP - General Internal Medicine 05/06/21 Henry Kelly MD Pulmonary Department 175 [facility], [address] [place] [address] Physician Pulmonary Disease 09/06/17 06/22/20 documented as of this encounter
--- OUTSIDE RECORDS SUMMARY | 2025-05-21 16:58 | XMS_ITS | Encounter Summary ---
Author Organization [facility] Address [address] [place] [address] Care Team Providers Care Roving Can Tender Name Role Phone Caitlyn Bowie MD Primary Care Provider +1- [phone] Reason for Visit * Reason Comments Other Encounter Details Date Type Department Care Team (Late st Contact Info) Description 01/12/2021 Telephone [facility] [address] - [address] [id number] Ronald Mills MD [address] [place] [address] Other Social History Tobacco Use Types [...] were faxed to [facility] @ [phone]. Patient notified by phone. * Telephone Encounter - Kathleen Nasima - 01/12/2021 8:46 AM EDT Pt called looking to speak with Kirstin RE: lab orders sent to lab [facility] lab Looking to have labs sent [...] as of this encounter Care Teams Roving Can Tender Relationship Specialty Start Date End Date Caitlyn Bowie MD [address] [address] PCP - General Internal Medicine 05/06/21 documented as of this encounter
--- OUTSIDE RECORDS SUMMARY | 2025-05-21 16:58 | XMS_ITS | Encounter Summary ---
Author Organization [facility] and [facility] Address [address] [place] [address] Care Team Providers Care Preassembler And Inspector Name Role Phone Caitlyn Bowie MD Primary Care Provider +1- [phone] Encounter Details Date Type Department Care Team ([facility] st Contact Info) Description 04/28/2015 Scanned Document [facility] Health Information Management [address] [place] [address] External, Provider Social History Tobacco Use Types [...] documented as of this encounter Care Teams Preassembler And Inspector Relationship Specialty Start Date End Date Caitlyn Bowie MD [address] [address] PCP - General Internal Medicine 05/06/21 Henry Kelly MD Pulmonary Department 175 [facility], [address] [place] [address] Physician Pulmonary Disease 09/06/17 06/22/20 documented as of this encounter
--- OUTSIDE RECORDS SUMMARY | 2025-05-21 16:58 | XMS_ITS | Encounter Summary ---
Author Organization [facility] and [facility] Address [address] [place] [address] Care Team Providers Care Commercial Shrimping Captain Name Role Phone Caitlyn Bowie MD Primary Care Provider +1- [phone] Encounter Details Date Type Department Care Team (Late st Contact Info) Description 09/01/2017 Scanned Document [facility] Health Information Management [address] [place] [address] External, Provider Social History Tobacco Use Types [...] as of this encounter Care Teams Commercial Shrimping Captain Relationship Specialty Start Date End Date Caitlyn Bowie MD 3400 [facility] 1 [place] [address] PCP - General Internal Medicine 05/06/21 Henry Kelly MD Pulmonary Department 175 [facility], [address] [place] [address] Physician Pulmonary Disease 09/06/17 06/22/20 documented as of this encounter
--- OUTSIDE RECORDS SUMMARY | 2025-05-21 16:58 | XMS_ITS | Encounter Summary ---
Author Organization [facility] and [facility] Address [address] [place] [address] Care Team Providers Care Wine Cellar Worker Name Role Phone Caitlyn Bowie MD Primary Care Provider +1- [phone] Encounter Details Date Type Department Care Team ([facility] st Contact Info) Description 08/26/2014 Documentation [facility] [address] [place] [address] Shilpi Ibarra [address] [place] [address] Social History Tobacco Use Types Packs/Day Years [...] 3400 [facility] [address] 1 [place] [address] PCP - General Internal Medicine 05/06/21 Henry Kelly MD Pulmonary Department 175 [facility], [address] [place] [address] Physician Pulmonary Disease 09/06/17 06/22/20 documented as of this encounter
--- OUTSIDE RECORDS SUMMARY | 2025-05-21 16:58 | XMS_ITS | Encounter Summary ---
Author Organization [facility] and [facility] Address [address] [place] [address] Care Team Providers Care Diesel Motor Mechanic Name Role Phone Caitlyn Bowie MD Primary Care Provider +1- [phone] Encounter Details Date Type Department Care Team (Late st Contact Info) Description 11/09/2020 Scanned Document INTERFACE DEFAULT [address] [place] [address] System, Provider Not In Social History Tobacco [...] as of this encounter Care Teams Diesel Motor Mechanic Relationship Specialty Start Date End Date Caitlyn Bowie MD [address] [address] PCP - General Internal Medicine 05/06/21 documented as of this encounter
--- OUTSIDE RECORDS SUMMARY | 2025-05-21 16:58 | XMS_ITS | Encounter Summary ---
Author Organization [facility] and [facility] Address [address] [place] [address] Care Team Providers Care Sheet Metal Erector Name Role Phone Caitlyn Bowie MD Primary Care Provider +1- [phone] Encounter Details Date Type Department Care Team ([facility] st Contact Info) Description 11/07/2014 Scanned Document [facility] Health Information Management [address] [place] [address] External, Provider Social History Tobacco Use [...] Caitlyn Bowie MD [address] [address] PCP - General Internal Medicine 05/06/21 Henry Kelly MD Pulmonary Department 175 [facility], [address] [place] [address] Physician Pulmonary Disease 09/06/17 06/22/20 documented as of this encounter
--- OUTSIDE RECORDS SUMMARY | 2025-05-21 16:58 | XMS_ITS | Encounter Summary ---
Author Organization [facility] and [facility] Address [address] [place] [address] Care Team Providers Care Manager Medicaid Name Role Phone Caitlyn Bowie MD Primary Care Provider +1- [phone] Encounter Details Date Type Department Care Team (Late st Contact Info) Description 01/07/2014 Documentation [facility] [address] [place] [address] Shilpi Ibarra [address] [place] [address] Social History Tobacco Use Types Packs/Day Years [...] from the original note were not included. [facility] Progress Note This is a 70 [...] as of this encounter Care Teams Manager Medicaid Relationship Specialty Start Date End Date Caitlyn Bowie MD 3400 [facility] 1 [place] [address] PCP - General Internal Medicine 05/06/21 Henry Kelly MD Pulmonary Department 175 [facility], [address] [place] [address] Physician Pulmonary Disease 09/06/17 06/22/20 documented as of this encounter
--- OUTSIDE RECORDS SUMMARY | 2025-05-21 16:58 | XMS_ITS | Encounter Summary ---
Author Organization [facility] Address [address] [place] [address] Care Team Providers Care Electronics Repair Technician Name Role Phone Caitlyn Bowie MD Primary Care Provider +1- [phone] Encounter Details Date Type Department Care Team ([facility] st Contact Info) Description 02/03/2021 Scanned Document [facility] Health Information Management [address] [place] [address] External, Provider Social History Tobacco Use Types [...] as of this encounter Care Teams Electronics Repair Technician Relationship Specialty Start Date End Date Caitlyn Bowie MD [address] [address] PCP - General Internal Medicine 05/06/21 documented as of this encounter
--- OUTSIDE RECORDS SUMMARY | 2025-05-21 16:58 | XMS_ITS | Encounter Summary ---
Author Organization [facility] and [facility] Address [address] [place] [address] Care Team Providers Care Blower Insulator Name Role Phone Caitlyn Bowie MD Primary Care Provider +1- [phone] Encounter Details Date Type Department Care Team (Late st Contact Info) Description 10/16/2013 Scanned Document [facility] [address] [place] [address], 2nd floor [facility], [address] [place], [place] [address] Suzy Kong MD [address] [place] [phone] Social History Tobacco Use Types Packs/Day [...] documented as of this encounter Care Teams Blower Insulator Relationship Specialty Start Date [place] [address] [address] PCP - General Internal Medicine 05/06/21 Henry Kelly MD Pulmonary Department [address] [place] [address], [address] [place] [address] Physician Pulmonary Disease 09/06/17 06/22/20 documented as of this encounter
--- OUTSIDE RECORDS SUMMARY | 2025-05-21 16:58 | XMS_ITS | Encounter Summary ---
Author Organization [facility] and [facility] Address [address] [place] [address] Care Team Providers Care Shredding Floor Equipment Operator Name Role Phone Caitlyn Bowie MD Primary Care Provider +1- [phone] Encounter Details Date Type Department Care Team ([facility] st Contact Info) Description 11/29/2017 Scanned Document [facility] Health Information Management [address] [place] [address] External, Provider Social History Tobacco Use Types [...] documented as of this encounter Care Teams Shredding Floor Equipment Operator Relationship Specialty Start Date End Date Caitlyn Bowie MD 3400 [facility] 1 [place] [address] PCP - General Internal Medicine 05/06/21 Henry Kelly MD Pulmonary Department 175 [facility], [address] [place] [address] Physician Pulmonary Disease 09/06/17 06/22/20 documented as of this encounter
--- OUTSIDE RECORDS SUMMARY | 2025-05-21 16:58 | XMS_ITS | Encounter Summary ---
Author Organization [facility] Address [address] [place] [address] Phone Care Team Providers Care Duster Tender Name Role Phone Caitlyn Bowie MD Primary Care Provider +1- [phone] Encounter Details Date Type Department Care Team (Late Contact Info) Description 12/12/2024 Documentation Only [facility] [address] [place] [address] Marina Abdi [address] [place] [address] Social History Tobacco Use Types [...] Visit [facility] [address] [place] [address] Rubén Ashraf MD [address] [place] [address] [place] [address] documented as of this encounter Visit Diagnoses Not on filedocumented in this encounter Care Teams Duster Tender Relationship Specialty Start Date End Date Caitlyn Bowie MD 3400 [place], [place] PCP - General Internal Medicine 09/24/24 documented as of this encounter
--- OUTSIDE RECORDS SUMMARY | 2025-05-21 16:58 | XMS_ITS | Encounter Summary ---
Author Organization [facility] and [facility] Address [address] [place] [address] Care Team Providers Care Kiln Stacker Name Role Phone Caitlyn Bwoie MD Primary Care Provider +1- [phone] Encounter Details Date Type Department Care Team ([facility] st Contact Info) Description 05/14/2015 Scanned Document [facility] Health Information Management [address] [place] [address] External, Provider Social History Tobacco Use Types [...] as of this encounter Care Teams Kiln Stacker Relationship Specialty Start Date End Date Caitlyn Bowie MD [address] [address] PCP - General Internal Medicine 05/06/21 Henry Kelly MD Pulmonary Department 175 [facility], [address] [place] [address] Physician Pulmonary Disease 09/06/17 06/22/20 documented as of this encounter
--- OUTSIDE RECORDS SUMMARY | 2025-05-21 16:58 | XMS_ITS | Encounter Summary ---
Author Organization [facility] and [facility] Address [address] [place] [address] Care Team Providers Care Yield Loss Inspector Name Role Phone Caitlyn Bowie MD Primary Care Provider +1- [phone] Encounter Details Date Type Department Care Team (Late st Contact Info) Description 12/21/2020 Scanned Document INTERFACE DEFAULT [address] [place] [address] System, Provider Not In Social History Tobacco [...] documented as of this encounter Care Teams Yield Loss Inspector Relationship Specialty Start Date End Date Caitlyn Bowie MD [address] [address] PCP - General Internal Medicine 05/06/21 documented as of this encounter
--- OUTSIDE RECORDS SUMMARY | 2025-05-21 16:58 | XMS_ITS | Encounter Summary ---
Author Organization [facility] Address [address] [place] [address] Care Team Providers Care Clerk Cashier Name Role Phone Caitlyn Bowie MD Primary Care Provider +1- [phone] Encounter Details Date Type Department Care Team (Late st Contact Info) Description 02/08/2021 Scanned Document INTERFACE DEFAULT [address] [place] [address] System, Provider Not In Social History Tobacco [...] as of this encounter Care Teams Clerk Cashier Relationship Specialty Start Date End Date Caitlyn Bowie MD [address] [address] PCP - General Internal Medicine 05/06/21 documented as of this encounter
--- OUTSIDE RECORDS SUMMARY | 2025-05-21 16:58 | XMS_ITS | Encounter Summary ---
Author Organization [facility] Address [address] [place] [address] Care Team Providers Care Fur Scraper Name Role Phone Caitlyn Bowie MD Primary Care Provider +1- [phone] Encounter Details Date Type Department Care Team ([facility] st Contact Info) Description 04/28/2015 Scanned Document [facility] Health Information Management [address] [place] [address] External, Provider Social History Tobacco Use Types [...] sult - Final [facility] [place], [place], [facility] documented in this encounter Visit Diagnoses Not on filedocumented in this encounter Additional Health Concerns Infection Onset Date Last Indicated Resolved Time COVID-19 03/05/2022 03/05/2022 03/15/2022 7:18 PM EDT documented as of this encounter Care Teams Fur Scraper Relationship Specialty Start Date End Date Caitlyn Bowie MD 3400 [facility] 1 [place] [address] PCP - General Internal Medicine 05/06/21 Henry Kelly MD Pulmonary Department [address] [place] [address], [address] [place] [address] Physician Pulmonary Disease 09/06/17 06/22/20 documented as of this encounter
--- OUTSIDE RECORDS SUMMARY | 2025-05-21 16:58 | XMS_ITS | Encounter Summary ---
Author Organization [facility] and [facility] Address [address] [place] [address] Care Team Providers Care Hvac Journeyman Name Role Phone Caitlyn Bowie MD Primary Care Provider +1- [phone] Encounter Details Date Type Department Care Team ([facility] st Contact Info) Description 01/26/2018 Scanned Document [facility] Health Information Management [address] [place] [address] External, Provider Social History Tobacco Use Types [...] as of this encounter Care Teams Hvac Journeyman Relationship Specialty Start Date End Date Caitlyn Bowie MD 3400 [facility] [address] 1 [place] [address] PCP - General Internal Medicine 05/06/21 Henry Kelly MD Pulmonary Department 175 [facility], [address] [place] [address] Physician Pulmonary Disease 09/06/17 06/22/20 documented as of this encounter
--- OUTSIDE RECORDS SUMMARY | 2025-05-21 16:58 | XMS_ITS | Encounter Summary ---
Author Organization [facility] and [facility] Address [address] [place] [address] Care Team Providers Care Barrel Builder Name Role Phone Caitlyn Bowie MD Primary Care Provider +1- [phone] Encounter Details Date Type Department Care Team ([facility] st Contact Info) Description 11/09/2014 Scanned Document [facility] Health Information Management [address] [place] [address] External, Provider Social History Tobacco Use Types [...] End Date Caitlyn Bowie MD [address] [address] PCP - General Internal Medicine 05/06/21 Henry Kelly MD Pulmonary Department 175 [facility], [address] [place] [address] Physician Pulmonary Disease 09/06/17 06/22/20 documented as of this encounter
--- OUTSIDE RECORDS SUMMARY | 2025-05-21 16:58 | XMS_ITS | Encounter Summary ---
Author Organization [facility] and [facility] Address [address] [place] [address] Care Team Providers Care Lacing Cutter Name Role Phone Caitlyn Bowie MD Primary Care Provider +1- [phone] Encounter Details Date Type Department Care Team ([facility] st Contact Info) Description 07/31/2015 Scanned Document [facility] Health Information Management [address] [place] [address] External, Provider Social History Tobacco Use Types [...] IMG SCAN REPORTS Edited Result - Final [facility] [place], [place], [facility] documented in this encounter Visit Diagnoses Not on filedocumented in this encounter Additional Health Concerns Infection Onset Date Last Indicated Resolved Time COVID-19 03/05/2022 03/05/2022 03/15/2022 7:18 PM EDT documented as of this encounter Care Teams Lacing Cutter Relationship Specialty Start Date End Date Caitlyn Bowie MD 3400 [facility] 1 [place] [address] PCP - General Internal Medicine 05/06/21 Henry Kelly MD Pulmonary Department 175 [facility], [address] [place] [address] Physician Pulmonary Disease 09/06/17 06/22/20 documented as of this encounter
--- OUTSIDE RECORDS SUMMARY | 2025-05-21 16:58 | XMS_ITS | Encounter Summary ---
Author Organization [facility] Address [address] [place] [address] Phone Care Team Providers Care Folder Inspector Name Role Phone Caitlyn Bowie MD Primary Care Provider +1- [phone] Encounter Details Date Type Department Care Team (Late Contact Info) Description 12/12/2024 Documentation Only [facility] [address] [place] [address] Marina Abdi [address] [place] [address] Social History Tobacco Use Types [...] [facility] [address] [place] [address] Rubén Ashraf MD [address] [place] [address] [place] [address] documented as of this encounter Visit Diagnoses Not on filedocumented in this encounter Care Teams Folder Inspector Relationship Specialty Start Date End Date Caitlyn Bowie MD [address] [place], [place] PCP - General Internal Medicine 09/24/24 documented as of this encounter
--- OUTSIDE RECORDS SUMMARY | 2025-05-21 16:58 | XMS_ITS | Encounter Summary ---
Author Organization [facility] Address [address] [place] [address] Care Team Providers Care Hris Specialist Name Role Phone Caitlyn Bowie MD Primary Care Provider +1- [phone] Encounter Details Date Type Department Care Team ([facility] st Contact Info) Description 02/02/2021 Scanned Document INTERFACE DEFAULT [address] [place] [address] System, Provider Not In Social History Tobacco [...] as of this encounter Care Teams Hris Specialist Relationship Specialty Start Date End Date Caitlyn Bowie MD [address] [address] PCP - General Internal Medicine 05/06/21 documented as of this encounter
--- OUTSIDE RECORDS SUMMARY | 2025-05-21 16:58 | XMS_ITS | Encounter Summary ---
Author Organization [facility] and [facility] Address [address] [place] [address] Care Team Providers Care Indian Blanket Weaver Name Role Phone Caitlyn Bowie MD Primary Care Provider +1- [phone] Encounter Details Date Type Department Care Team (Late st Contact Info) Description 02/03/2021 Scanned Document INTERFACE DEFAULT [address] [place] [address] System, Provider Not In Social History Tobacco [...] documented as of this encounter Care Teams Indian Blanket Weaver Relationship Specialty Start Date End Date Caitlyn Bowie MD [address] [address] PCP - General Internal Medicine 05/06/21 documented as of this encounter
--- OUTSIDE RECORDS SUMMARY | 2025-05-21 16:58 | XMS_ITS | Encounter Summary ---
Author Organization [facility] Address [address] [place] [address] Care Team Providers Care Naval Marine Engineer Name Role Phone Caitlyn Bowie MD Primary Care Provider +1- [phone] Encounter Details Date Type Department Care Team (Late st Contact Info) Description 03/14/2025 Scanned Document [facility] Neurology Ophthalmology [address] [place] [address] Shirley Chaidez PA-C [address] [address] Social History Tobacco Use Types Packs/Day Years [...] filedocumented in this encounter Care Teams Naval Marine Engineer Relationship Specialty Start Date End Date Caitlyn Bowie MD [address] [place] [address] PCP - General Internal Medicine 03/20/23 documented as of this encounter
--- OUTSIDE RECORDS SUMMARY | 2025-05-21 16:58 | XMS_ITS | Encounter Summary ---
Author Organization [facility] Address [address] [place] [address] Care Team Providers Care Plastics Engineering Teacher Name Role Phone Caitlyn Bowie MD Primary Care Provider +1- [phone] Encounter Details Date Type Department Care Team ([facility] st Contact Info) Description 02/07/2021 Scanned Document INTERFACE DEFAULT [address] [place] [address] System, Provider Not In Social History Tobacco [...] documented as of this encounter Care Teams Plastics Engineering Teacher Relationship Specialty Start Date End Date Caitlyn Bowie MD [address] [address] PCP - General Internal Medicine 05/06/21 documented as of this encounter
--- OUTSIDE RECORDS SUMMARY | 2025-05-21 16:58 | XMS_ITS | Encounter Summary ---
Author Organization [facility] and [facility] Address [address] [place] [address] Care Team Providers Care Airport Baggage Screener Name Role Phone Caitlyn Bowie MD Primary Care Provider +1- [phone] Encounter Details Date Type Department Care Team ([facility] st Contact Info) Description 01/28/2018 Scanned Document [facility] Health Information Management [address] [place] [address] External, Provider Social History Tobacco Use Types [...] as of this encounter Care Teams Airport Baggage Screener Relationship Specialty Start Date End Date Caitlyn Bowie MD [address] [address] PCP - General Internal Medicine 05/06/21 Henry Kelly MD Pulmonary Department 175 [facility], [address] [place] [address] Physician Pulmonary Disease 09/06/17 06/22/20 documented as of this encounter
--- OUTSIDE RECORDS SUMMARY | 2025-05-21 16:58 | XMS_ITS | Encounter Summary ---
Author Organization [facility] Address [address] [place] [address] Care Team Providers Care Business Technology Analyst Name Role Phone Caitlyn Bowie MD Primary Care Provider +1- [phone] Encounter Details Date Type Department Care Team (Late st Contact Info) Description 10/07/2013 Scanned Document [facility] Oncology [facility] at [facility] [address] [facility] [place] [address] Suzy Kong MD 6 [place] [address] Social History Tobacco Use Types [...] as of this encounter Care Teams Business Technology Analyst Relationship Specialty Start Date End Date Caitlyn Bowie MD [address] [address] PCP - General Internal Medicine 05/06/21 Henry Kelly MD Pulmonary Department [address] [place] [address], [address] [place] [address] Physician Pulmonary Disease 09/06/17 06/22/20 documented as of this encounter
--- OUTSIDE RECORDS SUMMARY | 2025-05-21 16:58 | XMS_ITS | Encounter Summary ---
Author Organization [facility] Address [address] [place] [address] Care Team Providers Care Wrecking Mechanic Name Role Phone Caitlyn Bowie MD Primary Care Provider +1- [phone] Encounter Details Date Type Department Care Team ([facility] st Contact Info) Description 01/27/2018 Scanned Document [facility] Health Information Management [address] [place] [address] External, Provider Social History Tobacco Use Types [...] documented as of this encounter Care Teams Wrecking Mechanic Relationship Specialty Start Date End Date Caitlyn Bowie MD [address] [address] PCP - General Internal Medicine 05/06/21 Henry Kelly MD Pulmonary Department 175 [facility], [address] [place] [address] Physician Pulmonary Disease 09/06/17 06/22/20 documented as of this encounter
--- OUTSIDE RECORDS SUMMARY | 2025-05-21 16:58 | XMS_ITS | Encounter Summary ---
Author Organization [facility] and [facility] Address [address] [place] [address] Care Team Providers Care Manager Personnel Selection Name Role Phone Caitlyn Bowie MD Primary Care Provider +1- [phone] Encounter Details Date Type Department Care Team (Late st Contact Info) Description 02/15/2021 Scanned Document INTERFACE DEFAULT [address] [place] [address] System, Provider Not In Social History Tobacco [...] as of this encounter Care Teams Manager Personnel Selection Relationship Specialty Start Date End Date Caitlyn Bowie MD [address] [address] PCP - General Internal Medicine 05/06/21 documented as of this encounter
--- OUTSIDE RECORDS SUMMARY | 2025-05-21 16:58 | XMS_ITS | Encounter Summary ---
Author Organization [facility] Address [address] [place] [address] Care Team Providers Care Evaluation Assistant Name Role Phone Caitlyn Bowie MD Primary Care Provider +1- [phone] Encounter Details Date Type Department Care Team (Late st Contact Info) Description 05/01/2015 Scanned Document [facility] Health Information Management [address] [place] [address] External, Provider Social History Tobacco Use Types [...] documented as of this encounter Care Teams Evaluation Assistant Relationship Specialty Start Date End Date Caitlyn Bowie MD 3400 [facility] 1 [place] [address] PCP - General Internal Medicine 05/06/21 Henry Kelly MD Pulmonary Department 175 [facility], [address] [place] [address] Physician Pulmonary Disease 09/06/17 06/22/20 documented as of this encounter
--- OUTSIDE RECORDS SUMMARY | 2025-05-21 16:58 | XMS_ITS | Encounter Summary ---
Author Organization [facility] Address [address] [place] [address] Care Team Providers Care Cylinder Checker Name Role Phone Caitlyn Bowie MD Primary Care Provider +1- [phone] Encounter Details Date Type Department Care Team (Late st Contact Info) Description 02/02/2021 Scanned Document [facility] Health Information Management [address] [place] [address] External, Provider Social History Tobacco Use Types [...] as of this encounter Care Teams Cylinder Checker Relationship Specialty Start Date End Date Caitlyn Bowie MD [address] [address] PCP - General Internal Medicine 05/06/21 documented as of this encounter
--- OUTSIDE RECORDS SUMMARY | 2025-05-21 16:58 | XMS_ITS | Encounter Summary ---
Author Organization [facility] Address [address] [place] [address] Care Team Providers Care Template Worker Name Role Phone Caitlyn Bowie MD Primary Care Provider +1- [phone] Encounter Details Date Type Department Care Team (Late st Contact Info) Description 01/28/2018 Scanned Document [facility] Health Information Management [address] [place] [address] External, Provider Social History Tobacco Use Types [...] as of this encounter Care Teams Template Worker Relationship Specialty Start Date End Date Caitlyn Bowie MD 3400 [facility] 1 [place] [address] PCP - General Internal Medicine 05/06/21 Henry Kelly MD Pulmonary Department [address] [place] [address], [address] [place] [address] Physician Pulmonary Disease 09/06/17 06/22/20 documented as of this encounter
--- OUTSIDE RECORDS SUMMARY | 2025-05-21 16:58 | XMS_ITS | Encounter Summary ---
Author Organization [facility] and [facility] Address [address] [place] [address] Care Team Providers Care Interpretive Naturalist Name Role Phone Caitlyn Bowie MD Primary Care Provider +1- [phone] Encounter Details Date Type Department Care Team ([facility] st Contact Info) Description 08/23/2017 Scanned Document [facility] Health Information Management [address] [place] [address] External, Provider Social History Tobacco Use Types [...] documented as of this encounter Care Teams Interpretive Naturalist Relationship Specialty Start Date End Date Caitlyn Bowie MD 3400 [facility] 1 [place] [address] PCP - General Internal Medicine 05/06/21 Henry Kelly MD Pulmonary Department 175 [facility], [address] [place] [address] Physician Pulmonary Disease 09/06/17 06/22/20 documented as of this encounter
--- OUTSIDE RECORDS SUMMARY | 2025-05-21 16:58 | XMS_ITS | Encounter Summary ---
Author Organization [facility] Address [address] [place] [address] Care Team Providers Care Calender Operator Helper Name Role Phone Caitlyn Bowie MD Primary Care Provider +1- [phone] Encounter Details Date Type Department Care Team (Late st Contact Info) Description 01/13/2021 Scanned Document [facility] at [address] [address] External, Provider Social History Tobacco Use Types [...] documented as of this encounter Care Teams Calender Operator Helper Relationship Specialty Start Date End Date Caitlyn Bowie MD [address] [address] PCP - General Internal Medicine 05/06/21 documented as of this encounter
--- OUTSIDE RECORDS SUMMARY | 2025-05-21 16:58 | XMS_ITS | Encounter Summary ---
Author Organization [facility] and [facility] Address [address] [place] [address] Care Team Providers Care Cryolite Recovery Operator Name Role Phone Caitlyn Bowie MD Primary Care Provider +1- [phone] Encounter Details Date Type Department Care Team (Late st Contact Info) Description 01/13/2021 Scanned Document [facility] at [address] [id number] Ronald Mills MD [address] [place] [address] Social History Tobacco Use Types Packs/Day [...] documented as of this encounter Care Teams Cryolite Recovery Operator Relationship Specialty Start Date End Date Caitlyn Bowie MD [address] [address] PCP - General Internal Medicine 05/06/21 documented as of this encounter
--- OUTSIDE RECORDS SUMMARY | 2025-05-21 16:58 | XMS_ITS | Encounter Summary ---
Author Organization [facility] and [facility] Address [address] [place] [address] Care Team Providers Care Chief Psychology Name Role Phone Caitlyn Bowie MD Primary Care Provider +1- [phone] Encounter Details Date Type Department Care Team ([facility] st Contact Info) Description 02/02/2018 Scanned Document [facility] Health Information Management [address] [place] [address] External, Provider Social History Tobacco Use Types [...] as of this encounter Care Teams Chief Psychology Relationship Specialty Start Date End Date Caitlyn Bowie MD 3400 [facility] 1 [place] [address] PCP - General Internal Medicine 05/06/21 Henry Kelly MD Pulmonary Department 175 [facility], [address] [place] [address] Physician Pulmonary Disease 09/06/17 06/22/20 documented as of this encounter
--- OUTSIDE RECORDS SUMMARY | 2025-05-21 16:58 | XMS_ITS | Encounter Summary ---
Author Organization [facility] and [facility] Address [address] [place] [address] Care Team Providers Care Communication Signals Intelligence Name Role Phone Caitlyn Bowie MD Primary Care Provider +1- [phone] Encounter Details Date Type Department Care Team (Late st Contact Info) Description 01/30/2018 Scanned Document [facility] Health Information Management [address] [place] [address] External, Provider Social History Tobacco Use Types [...] as of this encounter Care Teams Communication Signals Intelligence Relationship Specialty Start Date End Date Caitlyn Bowie MD 3400 [facility] 1 [place] [address] PCP - General Internal Medicine 05/06/21 Henry Kelly MD Pulmonary Department [address] [place] [address], [address] [place] [address] Physician Pulmonary Disease 09/06/17 06/22/20 documented as of this encounter
--- OUTSIDE RECORDS SUMMARY | 2025-05-21 16:58 | XMS_ITS | Encounter Summary ---
Author Organization [facility] and [facility] Address [address] [place] [address] Care Team Providers Care Tinsel Machine Operator Name Role Phone Caitlyn Bowie MD Primary Care Provider +1- [phone] Encounter Details Date Type Department Care Team (Late st Contact Info) Description 09/18/2020 Scanned Document INTERFACE DEFAULT [address] [place] [address] System, Provider Not In Social History Tobacco [...] documented as of this encounter Care Teams Tinsel Machine Operator Relationship Specialty Start Date End Date Caitlyn Bowie MD [address] [address] PCP - General Internal Medicine 05/06/21 documented as of this encounter
--- OUTSIDE RECORDS SUMMARY | 2025-05-21 16:58 | XMS_ITS | Encounter Summary ---
Author Organization [facility] and [facility] Address [address] [place] [address] Care Team Providers Care Feed Preparation Operator Name Role Phone Caitlyn Bowie MD Primary Care Provider +1- [phone] Encounter Details Date Type Department Care Team (Late st Contact Info) Description 01/27/2018 Scanned Document [facility] Health Information Management [address] [place] [address] External, Provider Social History Tobacco Use Types [...] documented as of this encounter Care Teams Feed Preparation Operator Relationship Specialty Start Date End Date Caitlyn Bowie MD 3400 [facility] [address] 1 [place] [address] PCP - General Internal Medicine 05/06/21 Hnery Kelly MD Pulmonary Department 175 [facility], [address] [place] [address] Physician Pulmonary Disease 09/06/17 06/22/20 documented as of this encounter
--- OUTSIDE RECORDS SUMMARY | 2025-05-21 16:58 | XMS_ITS | Encounter Summary ---
Author Organization [facility] Address [address] [place] [address] Care Team Providers Care Lumber Grader Name Role Phone Caitlyn Bowie MD Primary Care Provider +1- [phone] Encounter Details Date Type Department Care Team (Late st Contact Info) Description 01/27/2021 Scanned Document [facility] at [address] [address] External, Provider Social History Tobacco Use Types [...] as of this encounter Care Teams Lumber Grader Relationship Specialty Start Date End Date Caitlyn Bowie MD [address] [address] PCP - General Internal Medicine 05/06/21 documented as of this encounter
--- OUTSIDE RECORDS SUMMARY | 2025-05-21 16:58 | XMS_ITS | Encounter Summary ---
Author Organization [facility] Address [address] [place] [address] Care Team Providers Care Teacher [employer] Name Role Phone Caitlyn Bowie MD Primary Care Provider +1- [phone] Encounter Details Date Type Department Care Team ([facility] st Contact Info) Description 02/01/2018 Scanned Document [facility] Health Information Management [address] [place] [address] External, Provider Social History Tobacco Use Types [...] as of this encounter Care Teams Teacher [employer] Relationship Specialty Start Date End Date Caitlyn Bowie MD 3400 [facility] 1 [place] [address] PCP - General Internal Medicine 05/06/21 Henry Kelly MD Pulmonary Department 175 [facility], [address] [place] [address] Physician Pulmonary Disease 09/06/17 06/22/20 documented as of this encounter
--- OUTSIDE RECORDS SUMMARY | 2025-05-21 16:59 | XMS_ITS | Encounter Summary ---
Author Organization [facility] and [facility] Address [address] [place] [address] Care Team Providers Care Rental Sales Representative Name Role Phone Caitlyn Bowie MD Primary Care Provider +1- [phone] Encounter Details Date Type Department Care Team ([facility] st Contact Info) Description 04/27/2021 Scanned Document INTERFACE DEFAULT [address] [place] [address] System, Provider Not In Social History Tobacco [...] Caitlyn Bowie MD [facility] [address] [address] PCP - General Internal Medicine 05/06/21 documented as of this encounter
--- OUTSIDE RECORDS SUMMARY | 2025-05-21 16:59 | XMS_ITS | Encounter Summary ---
Author Organization [facility] and [facility] Address [address] [place] [address] Care Team Providers Care Computer Artist Name Role Phone Caitlyn Bowie MD Primary Care Provider +1- [phone] Encounter Details Date Type Department Care Team (Late st Contact Info) Description 06/07/2021 Scanned Document [facility] at [address] [place] [address] Norma Renee MD [address] [place] [address] 2 [place] [phone] Social History Tobacco Use Types Packs/Day Years [...] as of this encounter Care Teams Computer Artist Relationship Specialty Start Date End Date Caitlyn Bowie MD [address] [address] PCP - General Internal Medicine 05/06/21 documented as of this encounter
--- OUTSIDE RECORDS SUMMARY | 2025-05-21 16:59 | XMS_ITS | Encounter Summary ---
Author Organization [facility] and [facility] Address [address] [place] [address] Care Team Providers Care Neurobiologist Name Role Phone Caitlyn Bowie MD Primary Care Provider +1- [phone] Encounter Details Date Type Department Care Team ([facility] st Contact Info) Description 01/26/2018 Scanned Document [facility] Health Information Management [address] [place] [address] External, Provider Social History Tobacco Use Types [...] documented as of this encounter Care Teams Neurobiologist Relationship Specialty Start Date End Date Caitlyn Bowie MD 3400 [facility] 1 [place] [address] PCP - General Internal Medicine 05/06/21 Henry Kelly MD Pulmonary Department 175 [facility], [address] [place] [address] Physician Pulmonary Disease 09/06/17 06/22/20 documented as of this encounter
--- OUTSIDE RECORDS SUMMARY | 2025-05-21 16:59 | XMS_ITS | Encounter Summary ---
Author Organization [facility] and [facility] Address [address] [place] [address] Care Team Providers Care Cripple Cutter Name Role Phone Caitlyn Bowie MD Primary Care Provider +1- [phone] Encounter Details Date Type Department Care Team (Late st Contact Info) Description 07/30/2018 Scanned Document [facility] Health Information Management [address] [place] [address] External, Provider Social History Tobacco Use Types [...] documented as of this encounter Care Teams Cripple Cutter Relationship Specialty Start Date End Date Caitlyn Bowie MD [address] [facility] 1 [place] [address] PCP - General Internal Medicine 05/06/21 Henry Kelly MD Pulmonary Department [address] [place] [address], [address] [place] [address] Physician Pulmonary Disease 09/06/17 06/22/20 documented as of this encounter
--- OUTSIDE RECORDS SUMMARY | 2025-05-21 16:59 | XMS_ITS | Encounter Summary ---
Author Organization [facility] and [facility] Address [address] [place] [address] Care Team Providers Care Physical Therapy Supervisor Name Role Phone Caitlyn Bowie MD Primary Care Provider +1- [phone] Reason for Visit * Reason Comments Advice Only Encounter Details Date Type Department Care Team ([facility] st Contact Info) Description 06/01/2021 Telephone [facility] at [address] [phone] Ronald Mills MD [address] [place] [phone] Advice Only Social History Tobacco Use [...] added that she's called before and sent [employer] messages but hasn't received a reply,[phone]. documented in this encounter Plan of Treatment Not on file documented as of this encounter Visit Diagnoses Not on filedocumented in this encounter Additional Health Concerns Infection Onset Date Last Indicated Resolved Time COVID-19 03/05/2022 03/05/2022 03/15/2022 7:18 PM EDT Assessment Noted Time PHQ-9 Depression Total Score: 2 11/07/19 19 2:06 PM EDT documented as of this encounter Care Teams Physical Therapy Supervisor Relationship Specialty Start Date End Date Caitlyn Bowie MD [facility] [address] [address] PCP - General Internal Medicine 05/06/21 documented as of this encounter
--- OUTSIDE RECORDS SUMMARY | 2025-05-21 16:59 | XMS_ITS | Encounter Summary ---
Author Organization [facility] and [facility] Address [address] [place] [address] Care Team Providers Care Booking Agent Name Role Phone Caitlyn Bowie MD Primary Care Provider +1- [phone] Encounter Details Date Type Department Care Team (Late st Contact Info) Description 03/11/2015 Scanned Document [facility] Health Information Management [address] [place] [address] External, Provider Social History Tobacco Use Types [...] BLOOD ORDERABLES Edited Re sult - Final [facility] [place], [place], [facility] documented in this encounter Visit Diagnoses Not on filedocumented in this encounter Additional Health Concerns Infection Onset Date Last Indicated Resolved Time COVID-19 03/05/2022 03/05/2022 03/15/2022 7:18 PM EDT documented as of this encounter Care Teams Booking Agent Relationship Specialty Start Date End Date Caitlyn Bowie MD 3400 [facility] 1 [place] [address] PCP - General Internal Medicine 05/06/21 Henry Kelly MD Pulmonary Department [address] [place] [address], [address] [place] [address] Physician Pulmonary Disease 09/06/17 06/22/20 documented as of this encounter
--- OUTSIDE RECORDS SUMMARY | 2025-05-21 16:59 | XMS_ITS | Encounter Summary ---
Author Organization [facility] and [facility] Address [address] [place] [address] Care Team Providers Care Unit Secretary Name Role Phone Caitlyn Bowie MD Primary Care Provider +1- [phone] Encounter Details Date Type Department Care Team (Late st Contact Info) Description 11/18/2021 Scanned Document [facility] Health Information Management [address] [place] [address] External, Provider Social History Tobacco Use Types [...] as of this encounter Care Teams Unit Secretary Relationship Specialty Start Date End Date Caitlyn Bowie MD [address] [address] PCP - General Internal Medicine 05/06/21 documented as of this encounter
--- OUTSIDE RECORDS SUMMARY | 2025-05-21 16:59 | XMS_ITS | Encounter Summary ---
Author Organization [facility] and [facility] Address [address] [place] [address] Care Team Providers Care Director Stage Name Role Phone Caitlyn Bowie MD Primary Care Provider +1- [phone] Encounter Details Date Type Department Care Team (Late st Contact Info) Description 12/04/2014 Scanned Document [facility] Health Information Management [address] [place] [address] External, Provider Social History Tobacco Use Types [...] ult [facility] [place], [place], [facility] documented in this encounter Visit Diagnoses Not on filedocumented in this encounter Additional Health Concerns Infection Onset Date Last Indicated Resolved Time COVID-19 03/05/2022 03/05/2022 03/15/2022 7:18 PM EDT documented as of this encounter Care Teams Director Stage Relationship Specialty Start Date End Date Caitlyn Bowie MD 3400 [facility] 1 [place] [address] PCP - General Internal Medicine 05/06/21 Henry Kelly MD Pulmonary Department 175 [facility], [address] [place] [address] Physician Pulmonary Disease 09/06/17 06/22/20 documented as of this encounter
--- OUTSIDE RECORDS SUMMARY | 2025-05-21 16:59 | XMS_ITS | Encounter Summary ---
Author Organization [facility] and [facility] Address [address] [place] [address] Care Team Providers Care Clinical Documentation Clerk Name Role Phone Caitlyn Bowie MD Primary Care Provider +1- [phone] Encounter Details Date Type Department Care Team ([facility] st Contact Info) Description 09/24/2021 Scanned Document INTERFACE DEFAULT [address] [place] [address] System, Provider Not In Social History Tobacco [...] of this encounter Care Teams Clinical Documentation Clerk Relationship Specialty Start Date End Date Caitlyn Bowie MD [address] [address] PCP - General Internal Medicine 05/06/21 documented as of this encounter
--- OUTSIDE RECORDS SUMMARY | 2025-05-21 16:59 | XMS_ITS | Encounter Summary ---
Author Organization [facility] and [facility] Address [address] [place] [address] Care Team Providers Care Director Export Name Role Phone Caitlyn Bowie MD Primary Care Provider +1- [phone] Encounter Details Date Type Department Care Team (Late st Contact Info) Description 11/18/2021 Scanned Document INTERFACE DEFAULT [address] [place] [address] System, Provider Not In Social History Tobacco [...] as of this encounter Care Teams Director Export Relationship Specialty Start Date End Date Caitlny Bowie MD [address] [address] PCP - General Internal Medicine 05/06/21 documented as of this encounter
--- OUTSIDE RECORDS SUMMARY | 2025-05-21 16:59 | XMS_ITS | Encounter Summary ---
Author Organization [facility] and [facility] Address [address] [place] [address] Care Team Providers Care Bilingual Recruiter Name Role Phone Caitlyn Bowie MD Primary Care Provider +1- [phone] Encounter Details Date Type Department Care Team ([facility] st Contact Info) Description 04/16/2018 Scanned Document [facility] Health Information Management [address] [place] [address] External, Provider Social History Tobacco Use Types [...] as of this encounter Care Teams Bilingual Recruiter Relationship Specialty Start Date End Date Caitlyn Bowie MD [address] [address] PCP - General Internal Medicine 05/06/21 Henry Kelly MD Pulmonary Department 175 [facility], [address] [place] [address] Physician Pulmonary Disease 09/06/17 06/22/20 documented as of this encounter
--- OUTSIDE RECORDS SUMMARY | 2025-05-21 16:59 | XMS_ITS | Encounter Summary ---
Author Organization [facility] and [facility] Address [address] [place] [address] Care Team Providers Care Asphalt Paver Operator Name Role Phone Caitlyn Bowie MD Primary Care Provider +1- [phone] Encounter Details Date Type Department Care Team ([facility] st Contact Info) Description 06/26/2018 Scanned Document [facility] Health Information Management [address] [place] [address] External, Provider Social History Tobacco Use Types [...] as of this encounter Care Teams Asphalt Paver Operator Relationship Specialty Start Date End Date Caitlyn Bowie MD [address] [address] PCP - General Internal Medicine 05/06/21 Henry Kelly MD Pulmonary Department 175 [facility], [address] [place] [address] Physician Pulmonary Disease 09/06/17 06/22/20 documented as of this encounter
--- OUTSIDE RECORDS SUMMARY | 2025-05-21 16:59 | XMS_ITS | Encounter Summary ---
Author Organization [facility] and [facility] Address [address] [place] [address] Care Team Providers Care Sales Project Manager Name Role Phone Caitlyn Bowie MD Primary Care Provider +1- [phone] Encounter Details Date Type Department Care Team (Late st Contact Info) Description 06/07/2021 Scanned Document [facility] at [address] [place] [address] Norma Renee MD [address] [place] [address] 2 [place] [phone] Social History Tobacco Use Types Packs/Day Years [...] of this encounter Care Teams Sales Project Manager Relationship Specialty Start Date End Date Caitlyn Bowie MD [address] [address] PCP - General Internal Medicine 05/06/21 documented as of this encounter
--- OUTSIDE RECORDS SUMMARY | 2025-05-21 16:59 | XMS_ITS | Encounter Summary ---
Author Organization [facility] and [facility] Address [address] [place] [address] Care Team Providers Care Pneumatic Systems Operator Name Role Phone Caitlyn Bowie MD Primary Care Provider +1- [phone] Encounter Details Date Type Department Care Team (Late st Contact Info) Description 03/26/2015 Scanned Document Cardiovascular Medicine at [address] [place], [place] [address] Norma Renee MD [address] [place] [phone] Social History Tobacco Use Types Packs/Day [...] as of this encounter Care Teams Pneumatic Systems Operator Relationship Specialty Start Date End Date Caitlyn Bowie MD [address] [address] PCP - General Internal Medicine 05/06/21 Henry Kelly MD Pulmonary Department [address] [place] [address], [address] [place] [address] Physician Pulmonary Disease 09/06/17 06/22/20 documented as of this encounter
--- OUTSIDE RECORDS SUMMARY | 2025-05-21 16:59 | XMS_ITS | Clinical Summary ---
Author Organization [facility] Address [address] [place] [address] Care Team Providers Care Carpenter General Name Role Phone Caitlyn Bowie MD Primary Care Provider +1- [phone] Allergies Active Allergy Reactions Criticality Noted Date [...] High 05/09/2008 Bronchospasm or Wheezing Ipratropium Point [place] Unknown/Patient and Family Unable to Define Medium [...] 1 capsule by mouth daily. Active B Yrtjxub-M-Ksxvg Acid (STRESS 500 B-COMPLEX PO) Take 1 [...] Department Care Team Description 03/14/2025 Scanned Document [facility] Ophthalmology [address] [phone] Shirley Chaidez PA-C from Last 3 Months [...] & B [facility] Care Teams Carpenter General Relationship Specialty Start Date End Date Caitlyn Bowie MD 3400 [place] [address] PCP - General Internal Medicine 03/20/23
--- OUTSIDE RECORDS SUMMARY | 2025-05-21 16:59 | XMS_ITS | Encounter Summary ---
Author Organization [facility] and [facility] Address [address] [place] [address] Care Team Providers Care Dip Filler Name Role Phone Caitlyn Bowie MD Primary Care Provider +1- [phone] Encounter Details Date Type Department Care Team (Late st Contact Info) Description 02/19/2015 Scanned Document [facility] Health Information Management [address] [place] [address] External, Provider Social History Tobacco Use Types [...] BLOOD ORDERABLES Final Res ult [facility] [place], [place], [facility] documented in this encounter Visit Diagnoses Not on filedocumented in this encounter Additional Health Concerns Infection Onset Date Last Indicated Resolved Time COVID-19 03/05/2022 03/05/2022 03/15/2022 7:18 PM EDT documented as of this encounter Care Teams Dip Filler Relationship Specialty Start Date End Date Caitlyn Bowie MD 3400 [facility] 1 [place] [address] PCP - General Internal Medicine 05/06/21 Henry Kelly MD Pulmonary Department 175 [facility], [address] [place] [address] Physician Pulmonary Disease 09/06/17 06/22/20 documented as of this encounter
--- OUTSIDE RECORDS SUMMARY | 2025-05-21 16:59 | XMS_ITS | Encounter Summary ---
Author Organization [facility] and [facility] Address [address] [place] [address] Care Team Providers Care Cranberry Bog Supervisor Name Role Phone Caitlyn Bowie MD Primary Care Provider +1- [phone] Encounter Details Date Type Department Care Team (Late st Contact Info) Description 09/10/2021 Scanned Document Cardiovascular Medicine at 175 [facility] 175 [facility] THIRD FLOOR [place], [place] [address] Norma Renee MD [address] [place] [phone] Social History Tobacco Use Types Packs/Day Years [...] documented as of this encounter Care Teams Cranberry Bog Supervisor Relationship Specialty Start Date End Date Caitlyn Bowie MD [address] [address] PCP - General Internal Medicine 05/06/21 documented as of this encounter
--- OUTSIDE RECORDS SUMMARY | 2025-05-21 16:59 | XMS_ITS | Encounter Summary ---
Author Organization [facility] and [facility] Address [address] [place] [address] Care Team Providers Care Spinner Fixer Name Role Phone Caitlyn Bowie MD Primary Care Provider +1- [phone] Encounter Details Date Type Department Care Team (Late st Contact Info) Description 07/28/2018 Scanned Document [facility] Health Information Management [address] [place] [address] External, Provider Social History Tobacco Use Types [...] documented as of this encounter Care Teams Spinner Fixer Relationship Specialty Start Date End Date Caitlyn Bowie MD 3400 [facility] 1 [place] [address] PCP - General Internal Medicine 05/06/21 Henry Kelly MD Pulmonary Department [address] [place] [address], [address] [place] [address] Physician Pulmonary Disease 09/06/17 06/22/20 documented as of this encounter
--- OUTSIDE RECORDS SUMMARY | 2025-05-21 16:59 | XMS_ITS | Encounter Summary ---
Author Organization [facility] and [facility] Address [address] [place] [address] Care Team Providers Care Store Shopper Name Role Phone Caitlyn Bowie MD Primary Care Provider +1- [phone] Encounter Details Date Type Department Care Team ([facility] st Contact Info) Description 03/14/2018 Scanned Document [facility] Health Information Management [address] [place] [address] External, Provider Social History Tobacco Use Types [...] as of this encounter Care Teams Store Shopper Relationship Specialty Start Date End Date Caitlyn Bowie MD 3400 [facility] 1 [place] [address] PCP - General Internal Medicine 05/06/21 Henry Kelly MD Pulmonary Department 175 [facility], [address] [place] [address] Physician Pulmonary Disease 09/06/17 06/22/20 documented as of this encounter
--- OUTSIDE RECORDS SUMMARY | 2025-05-21 16:59 | XMS_ITS | Encounter Summary ---
Author Organization [facility] and [facility] Address [address] [place] [address] Care Team Providers Care Hand Salter Name Role Phone Caitlyn Bowie MD Primary Care Provider +1- [phone] Encounter Details Date Type Department Care Team (Late st Contact Info) Description 04/03/2018 Scanned Document [facility] [address] [place] [address] Provider, Historical . Social History Tobacco Use [...] as of this encounter Care Teams Hand Salter Relationship Specialty Start Date End Date Caitlyn Bowie MD 3400 [facility] 1 [place] [address] PCP - General Internal Medicine 05/06/21 Henry Kelly MD Pulmonary Department 175 [facility], [address] [place] [address] Physician Pulmonary Disease 09/06/17 06/22/20 documented as of this encounter
--- OUTSIDE RECORDS SUMMARY | 2025-05-21 16:59 | XMS_ITS | Encounter Summary ---
Author Organization [facility] and [facility] Address [address] [place] [address] Care Team Providers Care Computer Artist Name Role Phone Caitlyn Bowie MD Primary Care Provider +1- [phone] Encounter Details Date Type Department Care Team (Late st Contact Info) Description 05/27/2021 Telephone [facility] at [address] [address] Ronald Mills MD [address] [place] [phone] Social History Tobacco Use Types Packs/Day [...] End Date Caitlyn Bowie MD [address] [address] PCP - General Internal Medicine 05/06/21 documented as of this encounter
--- OUTSIDE RECORDS SUMMARY | 2025-05-21 16:59 | XMS_ITS | Encounter Summary ---
Author Organization [facility] and [facility] Address [address] [place] [address] Care Team Providers Care Artifacts Conservator Name Role Phone Caitlyn Bowie MD Primary Care Provider +1- [phone] Encounter Details Date Type Department Care Team ([facility] st Contact Info) Description 10/29/2021 Scanned Document [facility] Health Information Management [address] [place] [address] External, Provider Social History Tobacco Use Types [...] documented as of this encounter Care Teams Artifacts Conservator Relationship Specialty Start Date End Date Caitlyn Bowie MD [address] [address] PCP - General Internal Medicine 05/06/21 documented as of this encounter
--- OUTSIDE RECORDS SUMMARY | 2025-05-21 16:59 | XMS_ITS | Encounter Summary ---
Author Organization [facility] Address [address] [place] [address] Care Team Providers Care Model Dresser Name Role Phone Caitlyn Bowie MD Primary Care Provider +1- [phone] Encounter Details Date Type Department Care Team (Late st Contact Info) Description 11/19/2021 Scanned Document Cardiovascular Medicine at [address] [place] [address] Norma Renee MD [address] [place] [phone] Social History Tobacco Use Types Packs/Day [...] as of this encounter Care Teams Model Dresser Relationship Specialty Start Date End Date Caitlyn Bowie MD [address] [address] PCP - General Internal Medicine 05/06/21 documented as of this encounter
--- OUTSIDE RECORDS SUMMARY | 2025-05-21 16:59 | XMS_ITS | Encounter Summary ---
Author Organization [facility] and [facility] Address [address] [place] [address] Care Team Providers Care Editor & Co Founder Name Role Phone Caitlyn Bowie MD Primary Care Provider +1- [phone] Encounter Details Date Type Department Care Team ([facility] st Contact Info) Description 10/08/2021 Scanned Document INTERFACE DEFAULT [address] [place] [address] System, Provider Not In Social History Tobacco [...] as of this encounter Care Teams Editor & Co Founder Relationship Specialty Start Date End Date Caitlyn Bowie MD [address] [address] PCP - General Internal Medicine 05/06/21 documented as of this encounter
--- OUTSIDE RECORDS SUMMARY | 2025-05-21 16:59 | XMS_ITS | Encounter Summary ---
Author Organization [facility] Address [address] [place] [address] Care Team Providers Care Patient Case Coordinator Name Role Phone Caitlyn Bowie MD Primary Care Provider +1- [phone] Encounter Details Date Type Department Care Team (Late st Contact Info) Description 05/17/2021 Scanned Document [facility] at [address] [address] External, Provider Social History Tobacco Use Types [...] End Date Caitlyn Bowie MD [address] [address] PCP - General Internal Medicine 05/06/21 documented as of this encounter
--- OUTSIDE RECORDS SUMMARY | 2025-05-21 16:59 | XMS_ITS | Encounter Summary ---
Author Organization [facility] and [facility] Address [address] [place] [address] Care Team Providers Care Carbonation Equipment Tender Name Role Phone Caitlyn Bowie MD Primary Care Provider +1- [phone] Encounter Details Date Type Department Care Team ([facility] st Contact Info) Description 04/26/2021 Scanned Document INTERFACE DEFAULT [address] [place] [address] System, Provider Not In Social History Tobacco [...] documented as of this encounter Care Teams Carbonation Equipment Tender Relationship Specialty Start Date End Date Caitlyn Bowie MD [address] [address] PCP - General Internal Medicine 05/06/21 documented as of this encounter
--- OUTSIDE RECORDS SUMMARY | 2025-05-21 16:59 | XMS_ITS | Encounter Summary ---
Author Organization [facility] and [facility] Address [address] [place] [address] Care Team Providers Care Winery Cellar Hand Name Role Phone Caitlyn Bowie MD Primary Care Provider +1- [phone] Encounter Details Date Type Department Care Team ([facility] st Contact Info) Description 04/18/2018 Scanned Document [facility] Health Information Management [address] [place] [address] External, Provider Social History Tobacco Use Types [...] documented as of this encounter Care Teams Winery Cellar Hand Relationship Specialty Start Date End Date Caitlyn Bowie MD 3400 [facility] 1 [place] [address] PCP - General Internal Medicine 05/06/21 Henry Kelly MD Pulmonary Department 175 [facility], [address] [place] [address] Physician Pulmonary Disease 09/06/17 06/22/20 documented as of this encounter
--- OUTSIDE RECORDS SUMMARY | 2025-05-21 16:59 | XMS_ITS | Encounter Summary ---
Author Organization [facility] Address [address] [place] [address] Care Team Providers Care Hand Striper Name Role Phone Caitlyn Bowie MD Primary Care Provider +1- [phone] Encounter Details Date Type Department Care Team ([facility] st Contact Info) Description 05/05/2021 Scanned Document INTERFACE DEFAULT [address] [place] [address] System, Provider Not In Social History Tobacco [...] as of this encounter Care Teams Hand Striper Relationship Specialty Start Date End Date Caitlyn Bowie MD [address] [address] PCP - General Internal Medicine 05/06/21 documented as of this encounter
--- OUTSIDE RECORDS SUMMARY | 2025-05-21 16:59 | XMS_ITS | Encounter Summary ---
Author Organization [facility] and [facility] Address [address] [place] [address] Care Team Providers Care Ore Puncher Name Role Phone Caitlyn Bowie MD Primary Care Provider +1- [phone] Reason for Visit * Reason Comments Triage Encounter Details Date Type Department Care Team (Late st Contact Info) Description 10/18/2021 Telephone [facility] [address] - [address] [phone] Ronald Mills MD [address] [place] [phone] Triage Social History Tobacco Use Types [...] documented as of this encounter Care Teams Ore Puncher Relationship Specialty Start Date End Date Caitlyn Bowie MD [address] [address] PCP - General Internal Medicine 05/06/21 documented as of this encounter
--- OUTSIDE RECORDS SUMMARY | 2025-05-21 16:59 | XMS_ITS | Encounter Summary ---
Author Organization [facility] and [facility] Address [address] [place] [address] Care Team Providers Care Fruit Tester Name Role Phone Caitlyn Bowie MD Primary Care Provider +1- [phone] Encounter Details Date Type Department Care Team (Late st Contact Info) Description 09/23/2021 Scanned Document INTERFACE DEFAULT [address] [place] [address] System, Provider Not In Social History Tobacco [...] as of this encounter Care Teams Fruit Tester Relationship Specialty Start Date End Date Caitlyn Bowie MD [address] [address] PCP - General Internal Medicine 05/06/21 documented as of this encounter
--- OUTSIDE RECORDS SUMMARY | 2025-05-21 16:59 | XMS_ITS | Encounter Summary ---
Author Organization [facility] and [facility] Address [address] [place] [address] Care Team Providers Care Fisher Trot Line Name Role Phone Caitlyn Bowie MD Primary Care Provider +1- [phone] Encounter Details Date Type Department Care Team (Late st Contact Info) Description 06/07/2021 Scanned Document [facility] at [address] [address] External, Provider Social History Tobacco Use Types [...] as of this encounter Care Teams Fisher Trot Line Relationship Specialty Start Date End Date Caitlyn Bowie MD [address] [address] PCP - General Internal Medicine 05/06/21 documented as of this encounter
--- OUTSIDE RECORDS SUMMARY | 2025-05-21 16:59 | XMS_ITS | Encounter Summary ---
Author Organization [facility] Address [address] [place] [address] Care Team Providers Care Digital Marketing Lead Name Role Phone Caitlyn Bowie MD Primary Care Provider +1- [phone] Encounter Details Date Type Department Care Team ([facility] st Contact Info) Description 04/29/2021 Scanned Document INTERFACE DEFAULT [address] [place] [address] System, Provider Not In Social History Tobacco [...] of this encounter Care Teams Digital Marketing Lead Relationship Specialty Start Date End Date Caitlyn Bowie MD [address] [address] PCP - General Internal Medicine 05/06/21 documented as of this encounter
--- OUTSIDE RECORDS SUMMARY | 2025-05-21 16:59 | XMS_ITS | Encounter Summary ---
Author Organization [facility] and [facility] Address [address] [place] [address] Care Team Providers Care Frame Stripper And Crusher Name Role Phone Caitlyn Bowie MD Primary Care Provider +1- [phone] Encounter Details Date Type Department Care Team (Late st Contact Info) Description 03/13/2015 Scanned Document [facility] Health Information Management [address] [place] [address] External, Provider Social History Tobacco Use Types [...] Res ult [facility] [place], [place], [place] * Lab Scan (02/16/2015) Blood specimen (specimen) us Provider External LAB BLOOD ORDERABLES Final Res ult Performing Organization Address City/State/[facility] Co de Phone Number [facility] documented in this encounter Visit Diagnoses Not on filedocumented in this encounter Additional Health Concerns Infection Onset Date Last Indicated Resolved Time COVID-19 03/05/2022 03/05/2022 03/15/2022 7:18 PM EDT documented as of this encounter Care Teams Frame Stripper And Crusher Relationship Specialty Start Date End Date Caitlyn Bowie MD 3400 [facility] 1 [place] [address] PCP - General Internal Medicine 05/06/21 Henry Kelly MD Pulmonary Department 175 [facility], [address] [place] [address] Physician Pulmonary Disease 09/06/17 06/22/20 documented as of this encounter
--- OUTSIDE RECORDS SUMMARY | 2025-05-21 16:59 | XMS_ITS | Encounter Summary ---
Author Organization [facility] Address [address] [place] [address] Care Team Providers Care Fire Control Technician Name Role Phone Caitlyn Bowie MD Primary Care Provider +1- [phone] Encounter Details Date Type Department Care Team ([facility] st Contact Info) Description 10/15/2018 Scanned Document [facility] Health Information Management [address] [place] [address] External, Provider Social History Tobacco Use Types [...] End Date Caitlyn Bowie MD [address] [address] PCP - General Internal Medicine 05/06/21 Henry Kelly MD Pulmonary Department 175 [facility], [address] [place] [address] Physician Pulmonary Disease 09/06/17 06/22/20 documented as of this encounter
--- OUTSIDE RECORDS SUMMARY | 2025-05-21 16:59 | XMS_ITS | Encounter Summary ---
Author Organization [facility] Address [address] [place] [address] Care Team Providers Care Line Lead Name Role Phone Caitlyn Bowie MD Primary Care Provider +1- [phone] Encounter Details Date Type Department Care Team ([facility] st Contact Info) Description 06/08/2021 Scanned Document INTERFACE DEFAULT [address] [place] [address] System, Provider Not In Social History Tobacco [...] as of this encounter Care Teams Line Lead Relationship Specialty Start Date End Date Caitlyn Bowie MD [address] [address] PCP - General Internal Medicine 05/06/21 documented as of this encounter
--- OUTSIDE RECORDS SUMMARY | 2025-05-21 16:59 | XMS_ITS | Encounter Summary ---
Author Organization [facility] and [facility] Address [address] [place] [address] Care Team Providers Care Asphalt Mixing Machine Operator Name Role Phone Caitlyn Bowie MD Primary Care Provider +1- [phone] Encounter Details Date Type Department Care Team (Late st Contact Info) Description 09/09/2021 Scanned Document INTERFACE DEFAULT [address] [place] [address] System, Provider Not In Social History Tobacco [...] as of this encounter Care Teams Asphalt Mixing Machine Operator Relationship Specialty Start Date End Date Caitlyn Bowie MD [address] [address] PCP - General Internal Medicine 05/06/21 documented as of this encounter
--- OUTSIDE RECORDS SUMMARY | 2025-05-21 16:59 | XMS_ITS | Encounter Summary ---
Author Organization [facility] and [facility] Address [address] [place] [address] Care Team Providers Care Coal Shooter Name Role Phone Caitlyn Bowie MD Primary Care Provider +1- [phone] Encounter Details Date Type Department Care Team ([facility] st Contact Info) Description 04/24/2021 Scanned Document INTERFACE DEFAULT [address] [place] [address] System, Provider Not In Social History Tobacco [...] as of this encounter Care Teams Coal Shooter Relationship Specialty Start Date End Date Caitlyn Bowie MD [address] [address] PCP - General Internal Medicine 05/06/21 documented as of this encounter
--- OUTSIDE RECORDS SUMMARY | 2025-05-21 16:59 | XMS_ITS | Encounter Summary ---
Author Organization [facility] and [facility] Address [address] [place] [address] Care Team Providers Care Sorting Livestock Worker Name Role Phone Caitlyn Bowie MD Primary Care Provider +1- [phone] Encounter Details Date Type Department Care Team ([facility] st Contact Info) Description 07/26/2018 Scanned Document [facility] Health Information Management [address] [place] [address] External, Provider Social History Tobacco Use Types [...] documented as of this encounter Care Teams Sorting Livestock Worker Relationship Specialty Start Date End Date Caitlyn Bowie MD 3400 [facility] 1 [place] [address] PCP - General Internal Medicine 05/06/21 Henry Kelly MD Pulmonary Department 175 [facility], [address] [place] [address] Physician Pulmonary Disease 09/06/17 06/22/20 documented as of this encounter
--- OUTSIDE RECORDS SUMMARY | 2025-05-21 16:59 | XMS_ITS | Encounter Summary ---
Author Organization [facility] and [facility] Address [address] [place] [address] Care Team Providers Care Behavioral Health Director Name Role Phone Caitlyn Bowie MD Primary Care Provider +1- [phone] Encounter Details Date Type Department Care Team ([facility] st Contact Info) Description 08/07/2018 Scanned Document [facility] Health Information Management [address] [place] [address] External, Provider Social History Tobacco Use Types [...] of this encounter Care Teams Behavioral Health Director Relationship Specialty Start Date End Date aCitlyn Bowie MD [address] [address] PCP - General Internal Medicine 05/06/21 Henry Kelly MD Pulmonary Department 175 [facility], [address] [place] [address] Physician Pulmonary Disease 09/06/17 06/22/20 documented as of this encounter
--- OUTSIDE RECORDS SUMMARY | 2025-05-21 16:59 | XMS_ITS | Encounter Summary ---
Author Organization [facility] and [facility] Address [address] [place] [address] Care Team Providers Care Solar Project Engineer Name Role Phone Caitlyn Bowie MD Primary Care Provider +1- [phone] Encounter Details Date Type Department Care Team ([facility] st Contact Info) Description 04/28/2021 Scanned Document INTERFACE DEFAULT [address] [place] [address] System, Provider Not In Social History Tobacco [...] End Date Caitlyn Bowie MD [address] [address] PCP - General Internal Medicine 05/06/21 documented as of this encounter
--- OUTSIDE RECORDS SUMMARY | 2025-05-21 16:59 | XMS_ITS | Encounter Summary ---
Author Organization [facility] and [facility] Address [address] [place] [address] Care Team Providers Care Windows Systems Admin Name Role Phone Caitlyn Bowie MD Primary Care Provider +1- [phone] Encounter Details Date Type Department Care Team (Late st Contact Info) Description 12/28/2021 Scanned Document INTERFACE DEFAULT [address] [place] [address] System, Provider Not In Social History Tobacco [...] as of this encounter Care Teams Windows Systems Admin Relationship Specialty Start Date End Date Caitlyn Bowie MD [address] [address] PCP - General Internal Medicine 05/06/21 documented as of this encounter
--- OUTSIDE RECORDS SUMMARY | 2025-05-21 16:59 | XMS_ITS | Encounter Summary ---
Author Organization [facility] and [facility] Address [address] [place] [address] Care Team Providers Care Sales Review Clerk Name Role Phone Caitlyn Bowie MD Primary Care Provider +1- [phone] Encounter Details Date Type Department Care Team ([facility] st Contact Info) Description 04/25/2021 Scanned Document INTERFACE DEFAULT [address] [place] [address] System, Provider Not In Social History Tobacco [...] as of this encounter Care Teams Sales Review Clerk Relationship Specialty Start Date End Date Caitlyn Bowie MD [address] [address] PCP - General Internal Medicine 05/06/21 documented as of this encounter
--- OUTSIDE RECORDS SUMMARY | 2025-05-21 16:59 | XMS_ITS | Encounter Summary ---
Author Organization [facility] Address [address] [place] [address] Phone Care Team Providers Care Furnace Installer Name Role Phone Caitlyn Bowie MD Primary Care Provider +1- [phone] Encounter Details Date Type Department Care Team (Late Contact Info) Description 03/17/2025 Documentation Only [facility] [address] [place] [address] Marina Abdi [address] [place] [address] Social History Tobacco Use Types [...] [facility] [address] [place] [address] Rubén Ashraf MD [address] [place] [address] [place] [address] documented as of this encounter Visit Diagnoses Not on filedocumented in this encounter Care Teams Furnace Installer Relationship Specialty Start Date End Date Caitlyn Bowie MD 3400 [place], [place] PCP - General Internal Medicine 09/24/24 documented as of this encounter
--- OUTSIDE RECORDS SUMMARY | 2025-05-21 17:00 | XMS_ITS | Encounter Summary ---
Author Organization [facility] Address [address] [place] [address] Care Team Providers Care Circle Cutting Saw Operator Name Role Phone Caitlyn Bowie MD Primary Care Provider +1- [phone] Encounter Details Date Type Department Care Team (Late st Contact Info) Description 09/09/2015 Scanned Document [facility] Health Information Management [address] [place] [address] External, Provider Social History Tobacco Use Types [...] Final Res ult [facility] [place], [place], [facility] documented in this encounter Visit Diagnoses Not on filedocumented in this encounter Additional Health Concerns Infection Onset Date Last Indicated Resolved Time COVID-19 03/05/2022 03/05/2022 03/15/2022 7:18 PM EDT documented as of this encounter Care Teams Circle Cutting Saw Operator Relationship Specialty Start Date End Date Caitlyn Bowie MD 3400 [facility] 1 [place] [address] PCP - General Internal Medicine 05/06/21 Henry Kelly MD Pulmonary Department 175 [facility], [address] [place] [address] Physician Pulmonary Disease 09/06/17 06/22/20 documented as of this encounter
--- OUTSIDE RECORDS SUMMARY | 2025-05-21 17:00 | XMS_ITS | Encounter Summary ---
Author Organization [facility] Address [address] [place] [address] Care Team Providers Care Supervisor Warping Department Name Role Phone Pcp, No Primary Care Provider Brennan Mario MD Primary Care Provider [phone] Caitlyn Bowie MD Primary Care Provider +1- [phone] Encounter Details Date Type Department Care Team (Late st Contact Info) Description 01/04/2022 Scanned Document [facility] Ophthalmology [address] [address] Yary Whitten DO [address] [place] [address] Social History Tobacco Use Types Packs/Day [...] filedocumented in this encounter Care Teams Supervisor Warping Department Relationship Specialty Start Date End Date Pcp, No PCP - General General Medicine 10/04/21 07/18/22 Brennan Burnett MD [address] [place] [address] PCP - General 07/19/22 03/19/23 Caitlyn Bowie MD 3400 [place] [address] PCP - General Internal Medicine 03/20/23 documented as of this encounter
--- OUTSIDE RECORDS SUMMARY | 2025-05-21 17:00 | XMS_ITS | Encounter Summary ---
Author Organization [facility] and [facility] Address [address] [place] [address] Care Team Providers Care Desk Top Publisher Name Role Phone Caitlyn Bowie MD Primary Care Provider +1- [phone] Encounter Details Date Type Department Care Team (Late st Contact Info) Description 07/08/2022 Scanned Document Cardiovascular Medicine at 175 [facility] 175 [facility] THIRD FLOOR [place], [place] [phone] Norma Renee MD [address] [place] [phone] Social History Tobacco Use Types Packs/Day Years [...] documented as of this encounter Care Teams Desk Top Publisher Relationship Specialty Start Date End Date Caitlyn Bowie MD [address] [address] PCP - General Internal Medicine 05/06/21 documented as of this encounter
--- OUTSIDE RECORDS SUMMARY | 2025-05-21 17:00 | XMS_ITS | Encounter Summary ---
Author Organization [facility] and [facility] Address [address] [place] [address] Care Team Providers Care Staking Technician Name Role Phone Caitlyn Bowie MD Primary Care Provider +1- [phone] Encounter Details Date Type Department Care Team ([facility] st Contact Info) Description 04/20/2023 Scanned Document INTERFACE DEFAULT [address] [place] [address] System, Provider Not In Social History Tobacco [...] as of this encounter Care Teams Staking Technician Relationship Specialty Start Date End Date Caitlyn Bowie MD [address] [address] PCP - General Internal Medicine 05/06/21 documented as of this encounter
--- OUTSIDE RECORDS SUMMARY | 2025-05-21 17:00 | XMS_ITS | Encounter Summary ---
Author Organization [facility] Address [address] [place] [address] Care Team Providers Care Manager Loss Prevention Name Role Phone Caitlyn Bowie MD Primary Care Provider +1- [phone] Encounter Details Date Type Department Care Team ([facility] st Contact Info) Description 08/28/2015 Scanned Document [facility] Health Information Management [address] [place] [address] External, Provider Social History Tobacco Use Types [...] as of this encounter Care Teams Manager Loss Prevention Relationship Specialty Start Date End Date Caitlyn Bowie MD [address] [address] PCP - General Internal Medicine 05/06/21 Henry Kelly MD Pulmonary Department 175 [facility], [address] [place] [address] Physician Pulmonary Disease 09/06/17 06/22/20 documented as of this encounter
--- OUTSIDE RECORDS SUMMARY | 2025-05-21 17:00 | XMS_ITS | Encounter Summary ---
Author Organization [facility] and [facility] Address [address] [place] [address] Care Team Providers Care Programming Specialist Name Role Phone Caitlyn Bowie MD Primary Care Provider +1- [phone] Encounter Details Date Type Department Care Team ([facility] st Contact Info) Description 07/06/2021 Scanned Document INTERFACE DEFAULT [address] [place] [address] System, Provider Not In Social History Tobacco [...] as of this encounter Care Teams Programming Specialist Relationship Specialty Start Date End Date Caitlyn Bowie MD [address] [address] PCP - General Internal Medicine 05/06/21 documented as of this encounter
--- OUTSIDE RECORDS SUMMARY | 2025-05-21 17:00 | XMS_ITS | Encounter Summary ---
Author Organization [facility] and [facility] Address [address] [place] [address] Care Team Providers Care Medical Assisting Instructor Name Role Phone Caitlyn Bowie MD Primary Care Provider +1- [phone] Encounter Details Date Type Department Care Team ([facility] st Contact Info) Description 01/02/2024 Scanned Document INTERFACE DEFAULT [address] [place] [address] System, Provider Not In Social History Tobacco [...] System LAB BLOOD ORDERABLES Acrmina l Result * LAB SCAN (01/02/2024 12:00 AM EDT) us Provider Not In System LAB BLOOD ORDERABLES Carmina l Result documented in this encounter Visit Diagnoses Not on filedocumented in this encounter Additional Health Concerns Assessment Noted Time PHQ-9 Depression Total Score: 2 11/07/19 19 2:06 PM EDT documented as of this encounter Care Teams Medical Assisting Instructor Relationship Specialty Start Date End Date Caitlyn Bowie MD [address] [address] PCP - General Internal Medicine 05/06/21 documented as of this encounter
--- OUTSIDE RECORDS SUMMARY | 2025-05-21 17:00 | XMS_ITS | Encounter Summary ---
Author Organization [facility] Address [address] [place] [address] Care Team Providers Care Primary Class Teacher Name Role Phone Caitlyn Bowie MD Primary Care Provider +1- [phone] Encounter Details Date Type Department Care Team (Late st Contact Info) Description 08/23/2022 Abstract [facility] at [address] [facility] 2nd [place] [address] Norma Renee MD [address] [place] [phone] Social History Tobacco Use Types Packs/Day Years [...] as of this encounter Care Teams Primary Class Teacher Relationship Specialty Start Date End Date Caitlyn Bowie MD NPI: [id number] [place] [phone] PCP - General Internal Medicine 05/06/21 documented as of this encounter
--- OUTSIDE RECORDS SUMMARY | 2025-05-21 17:00 | XMS_ITS | Encounter Summary ---
Author Organization [facility] and [facility] Address [address] [place] [address] Care Team Providers Care Fraud Prevention Analyst Name Role Phone Caitlyn Bowie MD Primary Care Provider +1- [phone] Encounter Details Date Type Department Care Team ([facility] st Contact Info) Description 04/13/2023 Scanned Document INTERFACE DEFAULT [address] [place] [address] System, Provider Not In Social History Tobacco [...] as of this encounter Care Teams Fraud Prevention Analyst Relationship Specialty Start Date End Date Caitlyn Bowie MD [address] [address] PCP - General Internal Medicine 05/06/21 documented as of this encounter
--- OUTSIDE RECORDS SUMMARY | 2025-05-21 17:00 | XMS_ITS | Encounter Summary ---
Author Organization [facility] and [facility] Address [address] [place] [address] Care Team Providers Care Addressograph Operator Name Role Phone Caitlyn Bowie MD Primary Care Provider +1- [phone] Encounter Details Date Type Department Care Team ([facility] st Contact Info) Description 04/19/2023 Scanned Document INTERFACE DEFAULT [address] [place] [address] System, Provider Not In Social History Tobacco [...] documented as of this encounter Care Teams Addressograph Operator Relationship Specialty Start Date End Date Caitlyn Bowie MD [address] [address] PCP - General Internal Medicine 05/06/21 documented as of this encounter
--- OUTSIDE RECORDS SUMMARY | 2025-05-21 17:00 | XMS_ITS | Encounter Summary ---
Author Organization [facility] and [facility] Address [address] [place] [address] Care Team Providers Care Wood Room Hand Name Role Phone Caitlyn Bowie MD Primary Care Provider +1- [phone] Encounter Details Date Type Department Care Team (Late st Contact Info) Description 09/01/2023 Scanned Document INTERFACE DEFAULT [address] [place] [address] System, Provider Not In Social History Tobacco [...] as of this encounter Care Teams Wood Room Hand Relationship Specialty Start Date End Date Caitlyn Bowie MD [address] [address] PCP - General Internal Medicine 05/06/21 documented as of this encounter
--- OUTSIDE RECORDS SUMMARY | 2025-05-21 17:00 | XMS_ITS | Encounter Summary ---
Author Organization [facility] Address [address] [place] [address] Care Team Providers Care Machine Technician Name Role Phone Caitlyn Bowie MD Primary Care Provider +1- [phone] Encounter Details Date Type Department Care Team ([facility] st Contact Info) Description 10/23/2018 Scanned Document [facility] Health Information Management [address] [place] [address] External, Provider Social History Tobacco Use Types [...] as of this encounter Care Teams Machine Technician Relationship Specialty Start Date End Date Caitlyn Bowie MD [address] [address] PCP - General Internal Medicine 05/06/21 Henry Kelly MD Pulmonary Department [address] [facility], [address] [place] [address] Physician Pulmonary Disease 09/06/17 06/22/20 documented as of this encounter
--- OUTSIDE RECORDS SUMMARY | 2025-05-21 17:00 | XMS_ITS | Encounter Summary ---
Author Organization [facility] Address [address] [place] [phone] Care Team Providers Care Time Lock Expert Name Role Phone Caitlyn Bowie MD Primary Care Provider +1- [phone] Encounter Details Date Type Department Care Team (Late st Contact Info) Description 09/09/2015 Scanned Document [facility] Health Information Management [address] [place] [address] External, Provider Social History Tobacco Use Types [...] BLOOD ORDERABLES Final Res ult [facility] [place], [place], [place] documented in this encounter Visit Diagnoses Not on filedocumented in this encounter Additional Health Concerns Infection Onset Date Last Indicated Resolved Time COVID-19 03/05/2022 03/05/2022 03/15/2022 7:18 PM EDT documented as of this encounter Care Teams Time Lock Expert Relationship Specialty Start Date End Date Caitlyn Bowie MD 3400 [facility] 1 [place] [address] PCP - General Internal Medicine 05/06/21 Henry Kelly MD Pulmonary Department [address] [facility], [address] [place] [address] Physician Pulmonary Disease 09/06/17 06/22/20 documented as of this encounter
--- OUTSIDE RECORDS SUMMARY | 2025-05-21 17:00 | XMS_ITS | Encounter Summary ---
Author Organization [facility] and [facility] Address [address] [place] [address] Care Team Providers Care Juvenile Detention Officer Name Role Phone Caitlyn Bowie MD Primary Care Provider +1- [phone] Encounter Details Date Type Department Care Team ([facility] st Contact Info) Description 06/08/2022 Scanned Document INTERFACE DEFAULT [address] [place] [address] System, Provider Not In Social History Tobacco [...] documented as of this encounter Care Teams Juvenile Detention Officer Relationship Specialty Start Date End Date Caitlyn Bowie MD [address] [address] PCP - General Internal Medicine 05/06/21 documented as of this encounter
--- OUTSIDE RECORDS SUMMARY | 2025-05-21 17:00 | XMS_ITS | Encounter Summary ---
Author Organization [facility] and [facility] Address [address] [place] [address] Care Team Providers Care Cleaning Attendant Name Role Phone Caitlyn Bowie MD Primary Care Provider +1- [phone] Encounter Details Date Type Department Care Team (Late st Contact Info) Description 06/23/2022 Scanned Document INTERFACE DEFAULT [address] [place] [address] System, Provider Not In Social History Tobacco [...] as of this encounter Care Teams Cleaning Attendant Relationship Specialty Start Date End Date Caitlyn Bowie MD [address] [address] PCP - General Internal Medicine 05/06/21 documented as of this encounter
--- OUTSIDE RECORDS SUMMARY | 2025-05-21 17:00 | XMS_ITS | Encounter Summary ---
Author Organization [facility] Address [address] [place] [address] Care Team Providers Care Junk Removal Specialist Name Role Phone Caitlyn Bowie MD Primary Care Provider +1- [phone] Encounter Details Date Type Department Care Team ([facility] st Contact Info) Description 09/28/2015 Scanned Document [facility] Health Information Management [address] [place] [address] External, Provider Social History Tobacco Use Types [...] Res ult [facility] [place], [place], [facility] documented in this encounter Visit Diagnoses Not on filedocumented in this encounter Additional Health Concerns Infection Onset Date Last Indicated Resolved Time COVID-19 03/05/2022 03/05/2022 03/15/2022 7:18 PM EDT documented as of this encounter Care Teams Junk Removal Specialist Relationship Specialty Start Date End Date Caitlyn Bowie MD 3400 [facility] 1 [place] [address] PCP - General Internal Medicine 05/06/21 Henry Kelly MD Pulmonary Department [address] [facility], [address] [place] [address] Physician Pulmonary Disease 09/06/17 06/22/20 documented as of this encounter
--- OUTSIDE RECORDS SUMMARY | 2025-05-21 17:00 | XMS_ITS | Encounter Summary ---
Author Organization [facility] and [facility] Address [address] [place] [address] Care Team Providers Care Pile Driver Operator Barge Mounted Name Role Phone Caitlyn Bowie MD Primary Care Provider +1- [phone] Encounter Details Date Type Department Care Team ([facility] st Contact Info) Description 07/22/2021 Scanned Document INTERFACE DEFAULT [address] [place] [address] System, Provider Not In Social History Tobacco [...] as of this encounter Care Teams Pile Driver Operator Barge Mounted Relationship Specialty Start Date End Date Caitlyn Bowie MD [address] [address] PCP - General Internal Medicine 05/06/21 documented as of this encounter
--- OUTSIDE RECORDS SUMMARY | 2025-05-21 17:00 | XMS_ITS | Encounter Summary ---
Author Organization [facility] and [facility] Address [address] [place] [address] Care Team Providers Care Director Of Financial Aid Name Role Phone Caitlyn Bowie MD Primary Care Provider +1- [phone] Encounter Details Date Type Department Care Team ([facility] st Contact Info) Description 05/17/2023 Scanned Document INTERFACE DEFAULT [address] [place] [address] System, Provider Not In Social History Tobacco [...] this encounter Care Teams Director Of Financial Aid Relationship Specialty Start Date End Date Caitlyn Bowie MD [facility] [address] [address] PCP - General Internal Medicine 05/06/21 documented as of this encounter
--- OUTSIDE RECORDS SUMMARY | 2025-05-21 17:00 | XMS_ITS | Encounter Summary ---
Author Organization [facility] and [facility] Address [address] [place] [address] Care Team Providers Care Office Communication Professor Name Role Phone Caitlyn Bowie MD Primary Care Provider +1- [phone] Reason for Visit * Reason Comments Advice Only mass Encounter Details Date Type Department Care Team (Late st Contact Info) Description 09/06/2021 Telephone [facility] [address] [phone] Ronald Mills MD [address] [place] [phone] Advice Only (mass) Social History Tobacco [...] as of this encounter Care Teams Office Communication Professor Relationship Specialty Start Date End Date Caitlyn Bowie MD [facility] [address] [address] PCP - General Internal Medicine 05/06/21 documented as of this encounter
--- OUTSIDE RECORDS SUMMARY | 2025-05-21 17:00 | XMS_ITS | Encounter Summary ---
Author Organization [facility] Address [address] [place] [address] Care Team Providers Care Public Transit Bus Driver Name Role Phone Caitlyn Bowie MD Primary Care Provider +1- [phone] Encounter Details Date Type Department Care Team ([facility] st Contact Info) Description 06/20/2022 Scanned Document INTERFACE DEFAULT [address] [place] [address] System, Provider Not In Social History Tobacco [...] as of this encounter Care Teams Public Transit Bus Driver Relationship Specialty Start Date End Date Caitlyn Bowie MD [address] [address] PCP - General Internal Medicine 05/06/21 documented as of this encounter
--- OUTSIDE RECORDS SUMMARY | 2025-05-21 17:00 | XMS_ITS | Encounter Summary ---
Author Organization [facility] and [facility] Address [address] [place] [address] Care Team Providers Care Hydroelectric Plant Operator Name Role Phone Caitlyn Bowie MD Primary Care Provider +1- [phone] Encounter Details Date Type Department Care Team ([facility] st Contact Info) Description 06/27/2022 Scanned Document INTERFACE DEFAULT [address] [place] [address] System, Provider Not In Social History Tobacco [...] of this encounter Care Teams Hydroelectric Plant Operator Relationship Specialty Start Date End Date Caitlyn oBwie MD [address] [address] PCP - General Internal Medicine 05/06/21 documented as of this encounter
--- OUTSIDE RECORDS SUMMARY | 2025-05-21 17:00 | XMS_ITS | Encounter Summary ---
Author Organization [facility] and [facility] Address [address] [place] [address] Care Team Providers Care Warehouse Inventory Clerk Name Role Phone Caitlyn Bowie MD Primary Care Provider +1- [phone] Encounter Details Date Type Department Care Team (Late st Contact Info) Description 07/28/2022 Scanned Document [facility] at [address] [place] [address] Norma Renee MD [address] [place] [address] 2 [place] [phone] Social History Tobacco Use Types Packs/Day Years [...] as of this encounter Care Teams Warehouse Inventory Clerk Relationship Specialty Start Date End Date Caitlyn Bowie MD [address] [address] PCP - General Internal Medicine 05/06/21 documented as of this encounter
--- OUTSIDE RECORDS SUMMARY | 2025-05-21 17:00 | XMS_ITS | Encounter Summary ---
Author Organization [facility] and [facility] Address [address] [place] [address] Care Team Providers Care Typists Supervisor Name Role Phone Caitlyn Bowie MD Primary Care Provider +1- [phone] Encounter Details Date Type Department Care Team ([facility] st Contact Info) Description 09/07/2021 Scanned Document INTERFACE DEFAULT [address] [place] [address] System, Provider Not In Social History Tobacco [...] documented as of this encounter Care Teams Typists Supervisor Relationship Specialty Start Date End Date Caitlyn Bowie MD [address] [address] PCP - General Internal Medicine 05/06/21 documented as of this encounter
--- OUTSIDE RECORDS SUMMARY | 2025-05-21 17:00 | XMS_ITS | Encounter Summary ---
Author Organization [facility] and [facility] Address [address] [place] [address] Care Team Providers Care Electromechanical Assembly Technician Name Role Phone Caitlyn Bowie MD Primary Care Provider +1- [phone] Encounter Details Date Type Department Care Team (Late st Contact Info) Description 12/23/2022 Scanned Document INTERFACE DEFAULT [address] [place] [address] System, Provider Not In Social History Tobacco [...] as of this encounter Care Teams Electromechanical Assembly Technician Relationship Specialty Start Date End Date Caitlyn Bowie MD [address] [address] PCP - General Internal Medicine 05/06/21 documented as of this encounter
--- OUTSIDE RECORDS SUMMARY | 2025-05-21 17:00 | XMS_ITS | Encounter Summary ---
Author Organization [facility] and [facility] Address [address] [place] [address] Care Team Providers Care Retail Clerk Name Role Phone Caitlyn Bowie MD Primary Care Provider +1- [phone] Encounter Details Date Type Department Care Team ([facility] st Contact Info) Description 09/02/2021 Scanned Document INTERFACE DEFAULT [address] [place] [address] System, Provider Not In Social History Tobacco [...] as of this encounter Care Teams Retail Clerk Relationship Specialty Start Date End Date Caitlyn Bowie MD [address] [address] PCP - General Internal Medicine 05/06/21 documented as of this encounter
--- OUTSIDE RECORDS SUMMARY | 2025-05-21 17:00 | XMS_ITS | Encounter Summary ---
Author Organization [facility] and [facility] Address [address] [place] [address] Care Team Providers Care Dining Room Host Name Role Phone Caitlyn Bowie MD Primary Care Provider +1- [phone] Encounter Details Date Type Department Care Team ([facility] st Contact Info) Description 06/28/2022 Scanned Document INTERFACE DEFAULT [address] [place] [address] System, Provider Not In Social History Tobacco [...] as of this encounter Care Teams Dining Room Host Relationship Specialty Start Date End Date Caitlyn Bowie MD [address] [address] PCP - General Internal Medicine 05/06/21 documented as of this encounter
--- OUTSIDE RECORDS SUMMARY | 2025-05-21 17:00 | XMS_ITS | Encounter Summary ---
Author Organization [facility] Address [address] [place] [address] Care Team Providers Care Shingle Trimmer Name Role Phone Caitlyn Bowie MD Primary Care Provider +1- [phone] Encounter Details Date Type Department Care Team (Late st Contact Info) Description 09/09/2015 Scanned Document [facility] Health Information Management [address] [place] [address] External, Provider Social History Tobacco Use Types [...] ORDERABLES Final Res ult [facility] [place], [place], [facility] documented in this encounter Visit Diagnoses Not on filedocumented in this encounter Additional Health Concerns Infection Onset Date Last Indicated Resolved Time COVID-19 03/05/2022 03/05/2022 03/15/2022 7:18 PM EDT documented as of this encounter Care Teams Shingle Trimmer Relationship Specialty Start Date End Date Caitlyn Bowie MD 3400 [facility] 1 [place] [address] PCP - General Internal Medicine 05/06/21 Henry Kelly MD Pulmonary Department [address] [facility], [address] [place] [address] Physician Pulmonary Disease 09/06/17 06/22/20 documented as of this encounter
--- OUTSIDE RECORDS SUMMARY | 2025-05-21 17:00 | XMS_ITS | Encounter Summary ---
Author Organization [facility] Address [address] [place] [address] Phone Care Team Providers Care Attendant Coin Operated Laundry Name Role Phone Caitlyn Bowie MD Primary Care Provider +1- [phone] Encounter Details Date Type Department Care Team (Late st Contact Info) Description 10/10/2024 Documentation Only [facility] [address] [place] [address] [place] [address] [place] [address] Social History Tobacco Use Types [...] [facility] [address] [place] [address] Rubén Ashraf MD [address] [place] [address] [place] [address] documented as of this encounter Visit Diagnoses Not on filedocumented in this encounter Care Teams Attendant Coin Operated Laundry Relationship Specialty Start Date End Date Caitlyn Bowie MD 3400 [place], [place] PCP - General Internal Medicine 09/24/24 documented as of this encounter
--- OUTSIDE RECORDS SUMMARY | 2025-05-21 17:00 | XMS_ITS | Encounter Summary ---
Author Organization [facility] Address [address] [place] [address] Care Team Providers Care Warehouse Operations Manager Name Role Phone Caitlyn Bowie MD Primary Care Provider +1- [phone] Encounter Details Date Type Department Care Team ([facility] st Contact Info) Description 10/24/2022 Scanned Document INTERFACE DEFAULT [address] [place] [address] System, Provider Not In Social History Tobacco [...] as of this encounter Care Teams Warehouse Operations Manager Relationship Specialty Start Date End Date Caitlyn Bowie MD [address] [address] PCP - General Internal Medicine 05/06/21 documented as of this encounter
--- OUTSIDE RECORDS SUMMARY | 2025-05-21 17:00 | XMS_ITS | Encounter Summary ---
Author Organization [facility] and [facility] Address [address] [place] [address] Care Team Providers Care Pompom Maker Name Role Phone Caitlyn Bowie MD Primary Care Provider +1- [phone] Encounter Details Date Type Department Care Team (Late st Contact Info) Description 12/04/2018 Scanned Document [facility] Health Information Management [address] [place] [address] External, Provider Social History Tobacco Use Types [...] documented as of this encounter Care Teams Pompom Maker Relationship Specialty Start Date End Date Caitlyn Bowie MD [address] [address] PCP - General Internal Medicine 05/06/21 Henry Kelly MD Pulmonary Department [address] [place] [address], [address] [place] [address] Physician Pulmonary Disease 09/06/17 06/22/20 documented as of this encounter
--- OUTSIDE RECORDS SUMMARY | 2025-05-21 17:00 | XMS_ITS | Encounter Summary ---
Author Organization [facility] and [facility] Address [address] [place] [address] Care Team Providers Care Retail Gift Card Merchandising Name Role Phone Caitlyn Bowie MD Primary Care Provider +1- [phone] Encounter Details Date Type Department Care Team (Late st Contact Info) Description 12/06/2018 Scanned Document [facility] Health Information Management [address] [place] [address] External, Provider Social History Tobacco Use Types [...] as of this encounter Care Teams Retail Gift Card Merchandising Relationship Specialty Start Date End Date Caitlyn Bowie MD 3400 [facility] 1 [place] [address] PCP - General Internal Medicine 05/06/21 Henry Kelly MD Pulmonary Department [address] [facility], [address] [place] [address] Physician Pulmonary Disease 09/06/17 06/22/20 documented as of this encounter
--- OUTSIDE RECORDS SUMMARY | 2025-05-21 17:00 | XMS_ITS | Encounter Summary ---
Author Organization [facility] and [facility] Address [address] [place] [address] Care Team Providers Care Cook Pressure Name Role Phone Caitlyn Bowie MD Primary Care Provider +1- [phone] Encounter Details Date Type Department Care Team ([facility] st Contact Info) Description 06/21/2022 Scanned Document INTERFACE DEFAULT [address] [place] [address] System, Provider Not In Social History Tobacco [...] as of this encounter Care Teams Cook Pressure Relationship Specialty Start Date End Date Caitlyn Bowie MD [address] [address] PCP - General Internal Medicine 05/06/21 documented as of this encounter
--- OUTSIDE RECORDS SUMMARY | 2025-05-21 17:00 | XMS_ITS | Data Portability ---
Author Organization [place] [facility] Address [address] [place] [address] Care Team Providers Care Tie Hacker Name Role Phone DEVENDRA EVELIN Primary Care [...] 911 activated Plan/Discussion: EMS handoff given to [facility] In order to obtain further information and compare any laboratory results/values, I have accessed old patient records. This information was pertinent in my medical decision making today. [email or web address] Not available 03/14/2021 13:20:46 07/18/2021 07/18/2021 Overview/History [...] as of yet. -She is educated to fiber picker stool softeners to help promote BM [...] I have accessed patient records on the [employer] and old patient records. This [...] [facility]. Time On Scene [...] noting blood on her pillow approximately 3 [address] [place] when she woke this morning. She has [...] after care of this patient according to [facility]'s infection prevention protocols. [email or web address] Not available 12/29/2021 14:43:37 Plan of Treatment Reminders Order Date Submit Date Provider Last Modified By Organization Details Last Modified Time Details Appointments None recorded. Lab None recorded. Referral None recorded. Procedures None recorded. Surgeries None recorded. Imaging None recorded. Medication Orders docusate sodium 100 mg capsule 2021 022 lnovia [id number], [address] [facility], [place], [address], 19:28:14 Patient TargetsNo targets recorded. Patient Instructions Encounter Date Encounter Id Patient Instructions Last Modified By Organization Details Last Modified Time 03/14/2021 [id number] Thank you for yo ur visit with [facility] today. You were seen today for [...] in your condition between 8am-10pm, [facility] at [phone] to help navigate your care. [email or web address] Not available 03/14/2021 12:46:32 10/18/2021 [id number] It was great to see you today! Thank you for letting [facility] assist you in your medical needs [...] follow up with your PCP [facility]. Please present to the [...] 1.2 0.9-1. 2 Not Available [facility] [address] [facility], [place], [address], 02/11/2021 16:58:14 02/12/20 21 02/11/2021 , sylvia vance lower extre mity No observ ation record ed. [address] (Imaging) [address] [place], [address], 02/12/2021 08:19:41 Result Notes None recorded. Problems Name Problem SNOMED Code Status Onset Date Resolution Date Notes Provider Name and Address Organization Details Recorded Time Chronic obstructive pulmonary disease 57517484 Active 2018 ARCELIA PATELALON WINSTON [address], [facility] [place], [address], [place] [facility] 9 12:59:21 Problem Notes None recorded. Procedures Surgical History Date Name Laterality Status Provider Name and Address Organization Details Recorded Time Total Hysterectomy completed Cristine Sidhu, ALON [address], [place], [address], [place] [facility] 10/18/2021 19:39:45 lobectomy of lung completed Cristine frazier, FRY COOK [address], [place], [address], [place] [facility] 10/18/2021 19:40:05 Remove tonsils and adenoids completed Cristine Sidhu, ALON [address], [place], [address], [place] [facility] 10/18/2021 19:40:22 Imaging Results None recorded. Procedure Notes None recorded. Medical Equipment None Reported. Allergies Allergen ID Allergen Name Allergen Category Reaction Reaction Severity Criticality Documentation Date Start Date Code Code System Note Provider Name and Address Organization Details Recorded Time 01827 Product containin g penicilli n (product) medicatio n Not available Not available Not available 06/15/2019 68821 8001 SNOMED ARCELIA AMANDAALON WINSTON [address], [facility] [place], [address], [place] [facility] 9 12:56:48 23414 Substance with sulfonami de structure and antibacte rial mechanism of action (substanc e) medicatio n Not available Not available Not available 06/15/2019 32093 8003 SNOMED ARCELIA AMANDAALON WINSTON [address], [facility] [place], [address], [place] [facility] 9 12:56:54 87257 Voltaren medicatio n Not available Not available Not available 06/15/201912680 6 RxNorm ARCELIA FAJARDO , FRY COOK [address], [place], [address], [place] [facility] 9 12:57:01 05971 Iodinated contrast media (substanc e) medicatio n Not available Not available Not available 06/15/2019 46526 2004 SNOMED ARCELIA FAJARDO , FRY COOK [address], [place], [address], [place] [facility] 9 12:57:07 85887 vancomyci n medicatio n Not available Not available Not available 06/15/2019 22687 RxNorm ARCELIA FAJARDO , FRY COOK [address], [place], [address], [place] [facility] 9 12:57:14 23027 gentamici n medicatio n Not available Not available Not available 06/15/2019 03909 50 RxNorm ARCELIA FAJARDO , FRY COOK [address], [place], [address], [place] [facility] 9 12:57:20 23602 Biaxin medicatio n Not available Not available Not available 06/15/201943205 9 RxNorm ARCELIA FAJARDO , FRY COOK [address], [place], [address], [place] [facility] 9 12:57:27 33036 Avelox medicatio n Not available Not available Not available 06/15/2019 39060 6 RxNorm ARCELIA FAJARDO , FRY COOK [address], [place], [address], [place] [facility] 9 12:57:34 49265 erythromy jaylon medicatio n Not available Not available Not available 06/15/2019 4053 RxNorm ARCELIA FAJARDO , FRY COOK [address], [place], [address], [place] [facility] 9 12:57:41 53802 Zithromax medicatio n Not available Not available Not available 06/15/2019 71144 4 RxNorm ARCELIA FAJARDO , FRY COOK [address], [place], [address], [place] [facility] 9 12:57:51 75445 Levaquin medicatio n Not available Not available Not available 06/15/2019 06719 2 RxNorm ARCELIA FAJARDO , FRY COOK [address], [place], [address], [place] [facility] 9 12:58:02 21060 Cipro medicatio n Not available Not available Not available 06/15/2019 62323 3 RxNorm ARCELIA FAJARDO , FRY COOK [address], [place], [address], [place] [facility] 9 12:58:08 50108 morphine medicatio n Not available Not available Not available 06/15/2019 7052 RxNorm ARCELIA FAJARDO , FRY COOK [address], [place], [address], [place] [facility] 9 12:58:20 20445 procaine hydrochlo ride medicatio n Not available Not available Not available 06/15/2019 48894 8 RxNorm ARCELIA FAJARDO , FRY COOK [address], [place], [address], [place] [facility] 9 12:58:42 39439 barium sulfate medicatio n Not available Not available Not available 06/15/2019 1331 RxNorm ARCELIA FAJARDO , FRY COOK [address], [place], [address], [place] [facility] 9 12:58:54 99574 Gastrogra fin medicatio n Not available Not available Not available 06/15/2019 82801 5 RxNorm ARCELIA FAJARDO , FRY COOK [address], [place], [address], [place] [facility] 9 12:59:01 12991 Flagyl medicatio n Not available Not available Not available 06/15/2019 24291 6 RxNorm ARCELIA FAJARDO , FRY COOK [address], [place], [place], [address], [place] [facility] 9 12:59:06 66390 shrimp allergeni c extract food Not available Not available Not available 06/15/2019 38032 2 RxNorm ARCELIA FAJARDO , FRY COOK [address], [place], [place], [address], [place] [facility] [...] /min 98.9 [degF] 112/58 mm[Hg] Not Available [facility] 2 11:16:01 Date Recorded Heart rate Oxygen saturation Oxygen saturation in Arterial blood by Pulse oximetry Respiratory rate Body temperature Systolic And Diastolic Systolic And Diastolic Provider Name and Address Organization Details Last Updated DateTime 2 80 /min 96 % 96 % 18 /min 98.9 [degF] 142/66 mm[Hg] 128/60 mm[Hg] Not Available [facility] 2 20:16:17 Date Recorded Oxygen saturation Oxygen saturation in Arterial blood by Pulse oximetry Heart rate Respiratory rate Body temperature Systolic And Diastolic Provider Name and Address Organization Details Last Updated DateTime 2 96 % 96 % 77 /min 18 /min 98.6 [degF] 122/60 mm[Hg] Not Available [facility] 2 13:41:00 Date Recorded Heart rate Respiratory rate Oxygen saturation Oxygen saturation in Arterial blood by Pulse oximetry Body temperature Systolic And Diastolic Provider Name and Address Organization Details Last Updated DateTime 1 76 /min 16 /min 97 % 97 % 99 [degF] 114/62 mm[Hg] Not Available [facility] 1 12:53:01 Social History Question Answer Notes LastModified by Organizat ion Details LastModified Time Tobacco Smoking Status Never Smoker ARCELIA FAJARDO, ALON [address] [place], [address], [place] [facility] 06/15/2019 13:05:25 Do You [...] available 2021 19:35:02 Medical History Condition Response COPD Y Hypothyroidism Y Cancer Y Stroke N High Cholesterol Y Kidney Disease N Diabetes N Pulmonary Embolism Y Hypertension N Gynecological HistoryNo gynecological history recorded. Obstetrics History GPAL:G 0 P 0 0 0 0 Past Encounters Encounter ID Performer Location Encounter Start Date Encounter Closed Date Diagnosis/Indication Diagnosis SNOMED-CT Code Diagnosis ICD10 Code Diagnosis IMO Codes Diagnosis Note [id number] ARCELIA FAJARDO [facility] [address] [place] [address] 06/15/2019 12:54:37 06/17/2019 13:06:33 Excoriation of skin 272474517 T14.8XXA [id number] JANIS GILBERT NP [facility] [address] [place] [address] 11/13/2019 16:03:00 11/18/2019 14:53:37 Pain in lower limb 64091305 M79.661 [id number] ARCELIA FAJARDO NP [facility] [address] [place] [address] 03/14/2020 20:02:43 03/18/2020 21:30:46 Traumatic hematoma 029749531 T14.8XXA Long-term current use of anticoagulant 281572603 Z79.01 Pain in left foot 873348 6374 70740 M79.672 [id number] EMELIA TOMPKINS [facility] [address] [place] [address] 03/20/2020 12:50:59 03/23/2020 17:54:28 Contusion of lower leg 73095260 S80.10XA Swelling of lower leg 44 4249545 R22.42 [id number] JAMES GARCIA NP [facility] [address] [place] [address] 09/29/2020 11:41:21 09/29/2020 12:38:57 Pain of intercostal space 697927221 R07.82 Exposure t o communicable disease 312246093 Z20.822 [id number] Waleska Matos NP [facility] [address] [place] [address] 02/11/2021 16:34:32 02/12/2021 11:08:44 Hematoma of lower leg 809952751 S80.11XA [id number] JAMES GARCIA NP [facility] [address] [place] [address] 03/14/2021 12:45:30 03/19/2021 14:09:43 Abdominal pain 32780675 R10.9 [id number] EMELIA Alfonso [facility] [address] [facility] [place] [address] 07/18/2021 10:56:56 07/22/2021 23:43:22 Constipation 50838481 K59.00 Left lower quadrant pain 719165024 R10.32 [id number] Cristine Sidhu NP [facility] [address] [place] [address] 10/18/2021 19:17:00 11/10/2021 16:33:03 Left sided abdominal pain 423020533 R10.9 Hematoma of lower leg 44 6344734 S80.10XA Long-term current use of anticoagulant 237145524 Z79.01 [id number] Cristine Sidhu NP [facility] [address] [place] [address] 12/29/2021 13:36:24 12/30/2021 10:20:27 Blood coagulation disorder 14556205 D68.61 D68.2 [id number] Olivia Goldberg NP [facility] [address] [place] [address] 01/18/2023 14:00:39 01/18/2023 15:01:49 Health Concerns Section Related Observation LastModified by Organization Detai ls LastModified Time None Recorded Concern Status LastModified by Organization Details LastModified Time None Recorded Advance Directives Directive Y: Payers Insurance Date Sequence Insurance Name Policy Number Policy Pettit Covered Member ID Pettit Member ID Guarantor Name 01/18/2023 2 [place] [id number] Jovana Malik [id number] Jovana Malik 10/18/2021 1 *SELF PAY* Jovana Malik [id number] Jovana Malik 10/18/2021 2 [place] Jovana Malik [id number] Jovana Steinino 01/17/2023 2 [place] [id number] Jovana Malik [id number] Jovana Malik 10/18/2021 1 [place] [facility] Jovana Malik [id number] Jovana Malik 01/18/2023 1 [place] [facility] Jovana Malik [id number] Jovana Malik Notes Date Note Type Note Provider Name and Address Organization Details Recorded Time 1 text/html General HPI Template - DHReported by Patient This is a 75-year-old female, known to [employer], who calls with concerns for severe abdominal [...] fair fluid intake. JAMES GARCIA, ALON [address], [place], [address], [place] [facility] 03/14/2021 13:21:32 2 text/html 76 YO [...] asscociated sx's. EMELIA Ni [address], [place], [address], [place] [facility] 07/18/2021 12:04:00 2 text/html [...] evaluated. Cristine Sidhu NP [address], [place], [address], [place] [facility] 11/09/2021 02:11:05 2 text/html [...] supernatural. Cristine Sidhu NP [address], [place], [address], [place] [facility] 12/29/2021 14:43:53 3 text/html pt did not answer, visit canceled Olivia Goldberg NP [address], [place], [address], [place] [facility] 01/18/2023 19:34:36 OBGyn Episode No OBEpisode recorded.
--- OUTSIDE RECORDS SUMMARY | 2025-05-21 17:00 | XMS_ITS | Encounter Summary ---
Author Organization [facility] and [facility] Address [address] [place] [address] Care Team Providers Care Inside Plant Supervisor Name Role Phone Caitlyn Bowie MD Primary Care Provider +1- [phone] Encounter Details Date Type Department Care Team ([facility] st Contact Info) Description 06/24/2022 Scanned Document INTERFACE DEFAULT [address] [place] [address] System, Provider Not In Social History Tobacco [...] as of this encounter Care Teams Inside Plant Supervisor Relationship Specialty Start Date End Date Caitlyn Bowie MD [address] [address] PCP - General Internal Medicine 05/06/21 documented as of this encounter
--- OUTSIDE RECORDS SUMMARY | 2025-05-21 17:00 | XMS_ITS | Encounter Summary ---
Author Organization [facility] and [facility] Address [address] [place] [address] Care Team Providers Care Railroad Police Name Role Phone Caitlyn Bowie MD Primary Care Provider +1- [phone] Encounter Details Date Type Department Care Team ([facility] st Contact Info) Description 05/16/2023 Scanned Document INTERFACE DEFAULT [address] [place] [address] System, Provider Not In Social History Tobacco [...] as of this encounter Care Teams Railroad Police Relationship Specialty Start Date End Date Caitlyn Bowie MD [address] [address] PCP - General Internal Medicine 05/06/21 documented as of this encounter
--- OUTSIDE RECORDS SUMMARY | 2025-05-21 17:00 | XMS_ITS | Encounter Summary ---
Author Organization [facility] Address [address] [place] [address] Care Team Providers Care Sex Crimes Detective Name Role Phone Caitlyn Bowie MD Primary Care Provider +1- [phone] Encounter Details Date Type Department Care Team ([facility] st Contact Info) Description 01/31/2023 Abstract [facility] [address] [facility] [address] [place] [address] Shilpi Romero RN Social History Tobacco Use [...] Start Date End Date Caitlyn Bowie MD [address] [address] PCP - General Internal Medicine 05/06/21 documented as of this encounter
--- OUTSIDE RECORDS SUMMARY | 2025-05-21 17:00 | XMS_ITS | Encounter Summary ---
Author Organization [facility] Address [address] [place] [address] [address] [place] [address] Phone Care Team Providers Care Air Brush Decorator Name Role Phone Caitlyn Bowie MD Primary Care Provider +1- [phone] Encounter Details Date Type Department Care Team (Late st Contact Info) Description 08/30/2024 Abstract [facility] [address] [place] [address] [address] [place] [address] Adalgisa Whitney MD [address] [place] [address] [address] [place] [address] Social History Tobacco Use Types [...] as of this encounter Care Teams Air Brush Decorator Relationship Specialty Start Date End Date Caitlyn Bowie MD [address] [address] PCP - General Internal Medicine 05/06/21 documented as of this encounter
--- OUTSIDE RECORDS SUMMARY | 2025-05-21 17:00 | XMS_ITS | Encounter Summary ---
Author Organization [facility] and [facility] Address [address] [place] [address] Care Team Providers Care Maintenance Shop Technician Name Role Phone Caitlyn Bowie MD Primary Care Provider +1- [phone] Encounter Details Date Type Department Care Team (Late st Contact Info) Description 09/24/2015 Scanned Document [facility] [address] [id number] Kevin Espinoza MD [address] [place] [address] Social History Tobacco Use Types Packs/Day [...] as of this encounter Care Teams Maintenance Shop Technician Relationship Specialty Start Date End Date Caitlyn Bowie MD [address] [address] PCP - General Internal Medicine 05/06/21 Henry Kelly MD Pulmonary Department [address] [place] [address], [address] [place] [address] Physician Pulmonary Disease 09/06/17 06/22/20 documented as of this encounter
--- OUTSIDE RECORDS SUMMARY | 2025-05-21 17:00 | XMS_ITS | Encounter Summary ---
Author Organization [facility] and [facility] Address [address] [place] [address] Care Team Providers Care Individualized Education Plan Aide Name Role Phone Caitlyn Bowie MD Primary Care Provider +1- [phone] Encounter Details Date Type Department Care Team ([facility] st Contact Info) Description 07/07/2021 Scanned Document INTERFACE DEFAULT [address] [place] [address] System, Provider Not In Social History Tobacco [...] documented as of this encounter Care Teams Individualized Education Plan Aide Relationship Specialty Start Date End Date Caitlyn Bowie MD [address] [address] PCP - General Internal Medicine 05/06/21 documented as of this encounter
--- OUTSIDE RECORDS SUMMARY | 2025-05-21 17:01 | XMS_ITS | Encounter Summary ---
Author Organization [facility] Address [address] [place] [address] Care Team Providers Care Superintendent Maintenance Name Role Phone Caitlyn Bowie MD Primary Care Provider +1- [phone] Encounter Details Date Type Department Care Team (Late st Contact Info) Description 03/20/2023 Scanned Document [facility]iology [address] [place] [address] Caitlyn Bowie MD [address] [place] [address] Social History Tobacco Use Types Packs/Day Years [...] on filedocumented in this encounter Care Teams Superintendent Maintenance Relationship Specialty Start Date End Date Caitlyn Bowie MD [address] [place] [address] PCP - General Internal Medicine 03/20/23 documented as of this encounter
--- OUTSIDE RECORDS SUMMARY | 2025-05-21 17:01 | XMS_ITS | Encounter Summary ---
Author Organization [facility] and [facility] Address [address] [place] [address] Care Team Providers Care Plaster Die Maker Name Role Phone Caitlyn Bowie MD Primary Care Provider +1- [phone] Encounter Details Date Type Department Care Team (Late st Contact Info) Description 01/28/2019 Scanned Document [facility] Health Information Management [address] [place] [address] External, Provider Social History Tobacco Use [...] as of this encounter Care Teams Plaster Die Maker Relationship Specialty Start Date End Date Caitlyn Bowie MD [address] [address] PCP - General Internal Medicine 05/06/21 Henry Kelly MD Pulmonary Department [address] [place] [address], [address] [place] [address] Physician Pulmonary Disease 09/06/17 06/22/20 documented as of this encounter
--- OUTSIDE RECORDS SUMMARY | 2025-05-21 17:01 | XMS_ITS | Encounter Summary ---
Author Organization [facility] and [facility] Address [address] [place] [address] Care Team Providers Care Landscape Specialist Name Role Phone Caitlyn Bowie MD Primary Care Provider +1- [phone] Encounter Details Date Type Department Care Team ([facility] st Contact Info) Description 03/12/2019 Scanned Document [facility] Health Information Management [address] [place] [address] External, Provider Social History Tobacco Use Types [...] as of this encounter Care Teams Landscape Specialist Relationship Specialty Start Date End Date Caitlyn Bowie MD [address] [address] PCP - General Internal Medicine 05/06/21 Henry Kelly MD Pulmonary Department [address] [place] [address], [address] [place] [address] Physician Pulmonary Disease 09/06/17 06/22/20 documented as of this encounter
--- OUTSIDE RECORDS SUMMARY | 2025-05-21 17:01 | XMS_ITS | Encounter Summary ---
Author Organization [facility] Address [address] [place] [address] Care Team Providers Care Storm Window Installer Name Role Phone Caitlyn Bowie MD Primary Care Provider +1- [phone] Encounter Details Date Type Department Care Team (Late st Contact Info) Description 11/04/2015 Scanned Document [facility] Health Information Management [address] [place] [address] External, Provider Social History Tobacco Use Types [...] SCAN REPORTS Edited Result - Final [facility] [place], [place], [facility] documented in this encounter Visit Diagnoses Not on filedocumented in this encounter Additional Health Concerns Infection Onset Date Last Indicated Resolved Time COVID-19 03/05/2022 03/05/2022 03/15/2022 7:18 PM EDT documented as of this encounter Care Teams Storm Window Installer Relationship Specialty Start Date End Date Caitlyn Bowie MD [address] [facility] [address] [place] [address] PCP - General Internal Medicine 05/06/21 Henry Kelly MD Pulmonary Department [address] [facility], [address] [place] [address] Physician Pulmonary Disease 09/06/17 06/22/20 documented as of this encounter
--- OUTSIDE RECORDS SUMMARY | 2025-05-21 17:01 | XMS_ITS | Encounter Summary ---
Author Organization [facility] and [facility] Address [address] [place] [address] Care Team Providers Care Personal Lines Agent Name Role Phone Caitlyn Bowie MD Primary Care Provider +1- [phone] Encounter Details Date Type Department Care Team ([facility] st Contact Info) Description 05/02/2022 Scanned Document INTERFACE DEFAULT [address] [place] [address] System, Provider Not In Social History Tobacco [...] of this encounter Care Teams Personal Lines Agent Relationship Specialty Start Date End Date Caitlyn Bowie MD [address] [address] PCP - General Internal Medicine 05/06/21 documented as of this encounter
--- OUTSIDE RECORDS SUMMARY | 2025-05-21 17:01 | XMS_ITS | Encounter Summary ---
Author Organization [facility] and [facility] Address [address] [place] [address] Care Team Providers Care Email Designer Name Role Phone Caitlyn Bowie MD Primary Care Provider +1- [phone] Reason for Visit * Reason Comments Results Encounter Details Date Type Department Care Team (Late st Contact Info) Description 03/15/2022 Telephone [facility] at [address] [address] Ronald Mills MD [address] [place] [phone] Results Social History Tobacco Use Types [...] as of this encounter Care Teams Email Designer Relationship Specialty Start Date End Date Caitlyn Bowie MD [address] [address] PCP - General Internal Medicine 05/06/21 documented as of this encounter
--- OUTSIDE RECORDS SUMMARY | 2025-05-21 17:01 | XMS_ITS | Encounter Summary ---
Author Organization [facility] and [facility] Address [address] [place] [address] Care Team Providers Care Broom Machine Operator Name Role Phone Caitlyn Bowie MD Primary Care Provider +1- [phone] Encounter Details Date Type Department Care Team ([facility] st Contact Info) Description 12/28/2018 Scanned Document [facility] Health Information Management [address] [place] [address] External, Provider Social History Tobacco Use Types [...] documented as of this encounter Care Teams Broom Machine Operator Relationship Specialty Start Date End Date Caitlyn Bowie MD 3400 [facility] 1 [place] [address] PCP - General Internal Medicine 05/06/21 Henry Kelly MD Pulmonary Department 175 [facility], [address] [place] [address] Physician Pulmonary Disease 09/06/17 06/22/20 documented as of this encounter
--- OUTSIDE RECORDS SUMMARY | 2025-05-21 17:01 | XMS_ITS | Encounter Summary ---
Author Organization [facility] and [facility] Address [address] [place] [address] Care Team Providers Care Spirits Model Name Role Phone Caitlyn Bowie MD Primary Care Provider +1- [phone] Encounter Details Date Type Department Care Team ([facility] st Contact Info) Description 04/28/2022 Scanned Document INTERFACE DEFAULT [address] [place] [address] System, Provider Not In Social History Tobacco [...] documented as of this encounter Care Teams Spirits Model Relationship Specialty Start Date End Date Caitlyn Bowie MD [address] [address] PCP - General Internal Medicine 05/06/21 documented as of this encounter
--- OUTSIDE RECORDS SUMMARY | 2025-05-21 17:01 | XMS_ITS | Encounter Summary ---
Author Organization [facility] and [facility] Address [address] [place] [address] Care Team Providers Care Piping Supervisor Name Role Phone Caitlyn Bowie MD Primary Care Provider +1- [phone] Encounter Details Date Type Department Care Team (Late st Contact Info) Description 03/02/2022 Scanned Document [facility] Health Information Management [address] [place] [address] External, Provider Social History Tobacco Use Types [...] as of this encounter Care Teams Piping Supervisor Relationship Specialty Start Date End Date Caitlyn Bowie MD [address] [address] PCP - General Internal Medicine 05/06/21 documented as of this encounter
--- OUTSIDE RECORDS SUMMARY | 2025-05-21 17:01 | XMS_ITS | Encounter Summary ---
Author Organization [facility] and [facility] Address [address] [place] [address] Care Team Providers Care Sliver Lap Tender Name Role Phone Caitlyn Bowie MD Primary Care Provider +1- [phone] Encounter Details Date Type Department Care Team ([facility] st Contact Info) Description 02/06/2019 Scanned Document [facility] Health Information Management [address] [place] [address] External, Provider Social History Tobacco Use Types [...] of this encounter Care Teams Sliver Lap Tender Relationship Specialty Start Date End Date Caitlyn Bowie MD [address] [address] PCP - General Internal Medicine 05/06/21 Henry Kelly MD Pulmonary Department [address] [place] [address], [address] [place] [address] Physician Pulmonary Disease 09/06/17 06/22/20 documented as of this encounter
--- OUTSIDE RECORDS SUMMARY | 2025-05-21 17:01 | XMS_ITS | Encounter Summary ---
Author Organization [facility] and [facility] Address [address] [place] [address] Care Team Providers Care Rehabilitation Consultant Name Role Phone Caitlyn Bowie MD Primary Care Provider +1- [phone] Encounter Details Date Type Department Care Team (Late st Contact Info) Description 04/18/2022 Scanned Document INTERFACE DEFAULT [address] [place] [address] System, Provider Not In Social History Tobacco [...] as of this encounter Care Teams Rehabilitation Consultant Relationship Specialty Start Date End Date Caitlyn Bowie MD [address] [address] PCP - General Internal Medicine 05/06/21 documented as of this encounter
--- OUTSIDE RECORDS SUMMARY | 2025-05-21 17:01 | XMS_ITS | Encounter Summary ---
Author Organization [facility] and [facility] Address [address] [place] [address] Care Team Providers Care Release Engineer Name Role Phone Caitlyn Bowie MD Primary Care Provider +1- [phone] Encounter Details Date Type Department Care Team ([facility] st Contact Info) Description 04/13/2022 Scanned Document INTERFACE DEFAULT [address] [place] [address] System, Provider Not In Social History Tobacco [...] as of this encounter Care Teams Release Engineer Relationship Specialty Start Date End Date Caitlyn Bowie MD [address] [address] PCP - General Internal Medicine 05/06/21 documented as of this encounter
--- OUTSIDE RECORDS SUMMARY | 2025-05-21 17:01 | XMS_ITS | Encounter Summary ---
Author Organization [facility] and [facility] Address [address] [place] [address] Care Team Providers Care Ross Lift Operator Name Role Phone Caitlyn Bowie MD Primary Care Provider +1- [phone] Encounter Details Date Type Department Care Team (Late st Contact Info) Description 12/16/2015 Scanned Document [facility] Health Information Management [address] [place] [address] External, Provider Social History Tobacco Use Types [...] IMG SCAN REPORTS Edited Result - Final [facility] [place], [place], [facility] documented in this encounter Visit Diagnoses Not on filedocumented in this encounter Additional Health Concerns Infection Onset Date Last Indicated Resolved Time COVID-19 03/05/2022 03/05/2022 03/15/2022 7:18 PM EDT documented as of this encounter Care Teams Ross Lift Operator Relationship Specialty Start Date End Date Caitlyn Bowie MD [address] [address] PCP - General Internal Medicine 05/06/21 Henry Kelly MD Pulmonary Department 175 [facility], [address] [place] [address] Physician Pulmonary Disease 09/06/17 06/22/20 documented as of this encounter
--- OUTSIDE RECORDS SUMMARY | 2025-05-21 17:01 | XMS_ITS | Encounter Summary ---
Author Organization [facility] Address [address] [place] [address] Care Team Providers Care Communications Tower Climber Name Role Phone Caitlyn Bowie MD Primary Care Provider +1- [phone] Encounter Details Date Type Department Care Team ([facility] st Contact Info) Description 01/17/2019 Scanned Document [facility] Health Information Management [address] [place] [address] External, Provider Social History Tobacco Use Types [...] as of this encounter Care Teams Communications Tower Climber Relationship Specialty Start Date End Date Caitlyn Bowie MD 3400 [facility] 1 [place] [address] PCP - General Internal Medicine 05/06/21 Henry Kelly MD Pulmonary Department 175 [facility], [address] [place] [address] Physician Pulmonary Disease 09/06/17 06/22/20 documented as of this encounter
--- OUTSIDE RECORDS SUMMARY | 2025-05-21 17:01 | XMS_ITS | Encounter Summary ---
Author Organization [facility] and [facility] Address [address] [place] [address] Care Team Providers Care Behavioral Health Therapist Name Role Phone Caitlyn Bowie MD Primary Care Provider +1- [phone] Encounter Details Date Type Department Care Team ([facility] st Contact Info) Description 02/08/2016 Scanned Document [facility] Health Information Management [address] [place] [address] External, Provider Social History Tobacco Use Types [...] of this encounter Care Teams Behavioral Health Therapist Relationship Specialty Start Date End Date Caitlyn Bowie MD [address] [address] PCP - General Internal Medicine 05/06/21 Henry Kelly MD Pulmonary Department 175 [facility], [address] [place] [address] Physician Pulmonary Disease 09/06/17 06/22/20 documented as of this encounter
--- OUTSIDE RECORDS SUMMARY | 2025-05-21 17:01 | XMS_ITS | Encounter Summary ---
Author Organization [facility] and [facility] Address [address] [place] [address] Care Team Providers Care Fur Sorter Name Role Phone Caitlyn Bowie MD Primary Care Provider +1- [phone] Encounter Details Date Type Department Care Team ([facility] st Contact Info) Description 12/27/2018 Scanned Document [facility] Health Information Management [address] [place] [address] External, Provider Social History Tobacco Use Types [...] as of this encounter Care Teams Fur Sorter Relationship Specialty Start Date End Date Caitlyn Bowie MD 3400 [facility] 1 [place] [address] PCP - General Internal Medicine 05/06/21 Henry Kelly MD Pulmonary Department 175 [facility], [address] [place] [address] Physician Pulmonary Disease 09/06/17 06/22/20 documented as of this encounter
--- OUTSIDE RECORDS SUMMARY | 2025-05-21 17:01 | XMS_ITS | Encounter Summary ---
Author Organization [facility] and [facility] Address [address] [place] [address] Care Team Providers Care Chocolate Packer Name Role Phone Caitlyn Bowie MD Primary Care Provider +1- [phone] Encounter Details Date Type Department Care Team ([facility] st Contact Info) Description 04/12/2022 Scanned Document [facility] Health Information Management [address] [place] [address] External, Provider Social History Tobacco Use Types [...] as of this encounter Care Teams Chocolate Packer Relationship Specialty Start Date End Date Caitlyn Bowie MD [address] [address] PCP - General Internal Medicine 05/06/21 documented as of this encounter
--- OUTSIDE RECORDS SUMMARY | 2025-05-21 17:01 | XMS_ITS | Encounter Summary ---
Author Organization [facility] and [facility] Address [address] [place] [address] Care Team Providers Care Tin Flipper Name Role Phone Caitlyn Bowie MD Primary Care Provider +1- [phone] Encounter Details Date Type Department Care Team (Latest Contact Info) Description 12/25/2015 Transcribed Orders [facility] [place] [address] [place] [address] [place] [address] Osmel Briscoe MD Other abnormality of red [...] Q YH) (12/25/2015 10:09 AM EDT) Ig [place] Free Light Chain 1.84 0.33 - 1.94 mg/dL [facility] Ig Lambda Free Light Chain 1.96 0.57 - 2.63 mg/dL [facility] [place]/Lambda FLC Ratio 0.94 0.26 - 1.65 [facility] Blood specimen (specimen) 12/25/2015 10:09 AM EDT Osmel Briscoe MD LAB BLOOD ORDERABLES Final R esult Performing Organization Address [facility] Co de Phone Number [facility] [address] [place] [address] * Immunofixation, serum (GH L Q YH) [...] R esult Performing Organization Address [facility] Co de Phone Number [facility] [address] [place] [address] * (ABNORMAL) Protein electrophoresis, serum (BH GH L YH) (12/25/2015 10:09 AM EDT) Albumin Electrophoresis 3.45(L) 3.50 - 4.70 g/dL [facility] Tapbz-8-Rpsruamp 0.16 0.10 - 0.30 g/dL [facility] Ualua-2-Tkkcpcge 0.81 0.60 - 1.00 g/dL [facility] [place] [...] R esult Performing Organization Address [facility] Co de Phone Number [facility] [address] [place] [address] * Reticulocytes (GH L Q YH) (12/25/2015 10:09 AM EDT) Reticulocyte Count 2.1 0.6 - 2.7 % [facility] Blood specimen (specimen) 12/25/2015 10:09 AM EDT Osmel Briscoe MD LAB BLOOD ORDERABLES Final R esult Performing Organization Address [facility] Co de Phone Number [facility] [address] [place] [phone] * (ABNORMAL) Sedimentation rate (ESR) (12/25/2015 10:09 AM EDT) Sed Rate 27(H) 0 - 20 mm/hr [facility] Blood specimen (specimen) 12/25/2015 10:09 AM EDT Osmel Briscoe MD LAB BLOOD ORDERABLES Final R esult Performing Organization Address [facility] Co de Phone Number [facility] [address] [place] [address] * Ferritin (12/25/2015 10:09 AM EDT) Ferritin 68 9 - 120 ng/mL [facility] Blood specimen (specimen) 12/25/2015 10:09 AM EDT us Osmel Briscoe MD LAB BLOOD ORDERABLES Final R esult Performing Organization Address [facility] de Phone Number [facility] [address] [place] [address] * Iron and TIBC (12/25/2015 10:09 AM EDT) Iron 110 50 - 170 ug/dL [facility] TIBC 290 250 - 450 ug/dL [facility] Iron Saturation 38 15 - 50 [facility] Blood specimen (specimen) 12/25/2015 10:09 AM EDT Osmel Briscoe MD LAB BLOOD ORDERABLES Final R esult Performing Organization Address [facility] de Phone Number [facility] [address] [place] [address] * Vitamin D 25 hydroxy (BH L [...] ORDERABLES Final R esult Performing Organization Address [facility] Co de Phone Number [facility] [address] [place] [address] * TSH (BH L YH) (12/25/2015 10:09 AM EDT) TSH cancelled 0.3 - 4.2 uU/mL [facility] TSH 1.62 0.3 - 4.2 uU/mL [facility] Comment:This test is a third generation TSH assay. Blood specimen (specimen) 12/25/2015 10:09 AM EDT us Osmel Briscoe MD LAB BLOOD ORDERABLES Final R esult [facility] [address] [place] [address] * (ABNORMAL) CBC and differential (12/25/2015 10:09 AM EDT) Pathologist [facility] CBC with Differential See Below [facility] [place] [...] Final R esult [facility] [address] [place] [address] documented in this encounter Visit Diagnoses Diagnosis [...] as of this encounter Care Teams Tin Flipper Relationship Specialty Start Date End Date Caitlyn Bowie MD 3400 [facility] 1 [place] [address] PCP - General Internal Medicine 05/06/21 Henry Kelly MD Pulmonary Department 175 [facility], [address] [place] [address] Physician Pulmonary Disease 09/06/17 06/22/20 documented as of this encounter
--- OUTSIDE RECORDS SUMMARY | 2025-05-21 17:01 | XMS_ITS | Encounter Summary ---
Author Organization [facility] Address [address] [place] [address] Care Team Providers Care Roofing Technician Name Role Phone Pcp, No Primary Care Provider Brennan Mario MD Primary Care Provider [phone] Caitlyn Bowie MD Primary Care Provider +1- [phone] Encounter Details Date Type Department Care Team (Late st Contact Info) Description 01/04/2022 Scanned Document [facility] Neurology Ophthalmology [address] [address] Yary Whitten DO [address] [place] [address] Social History Tobacco Use Types Packs/Day [...] filedocumented in this encounter Care Teams Roofing Technician Relationship Specialty Start Date End Date Pcp, No PCP - General General Medicine 10/04/21 07/18/22 Brennan Burnett MD [address] [place] [address] PCP - General 07/19/22 03/19/23 Caitlyn Bowie MD 3400 [place] [address] PCP - General Internal Medicine 03/20/23 documented as of this encounter
--- OUTSIDE RECORDS SUMMARY | 2025-05-21 17:01 | XMS_ITS | Encounter Summary ---
Author Organization [facility] and [facility] Address [address] [place] [address] Care Team Providers Care Mixer Slagman Name Role Phone Caitlyn Bowie MD Primary Care Provider +1- [phone] Encounter Details Date Type Department Care Team ([facility] st Contact Info) Description 04/12/2022 Scanned Document INTERFACE DEFAULT [address] [place] [address] System, Provider Not In Social History Tobacco [...] as of this encounter Care Teams Mixer Slagman Relationship Specialty Start Date End Date Caitlyn Bowie MD [address] [address] PCP - General Internal Medicine 05/06/21 documented as of this encounter
--- OUTSIDE RECORDS SUMMARY | 2025-05-21 17:01 | XMS_ITS | Encounter Summary ---
Author Organization [facility] Address [address] [place] [address] Care Team Providers Care Snake Charmer Name Role Phone Caitlyn Bowie MD Primary Care Provider +1- [phone] Encounter Details Date Type Department Care Team (Late st Contact Info) Description 12/03/2015 Scanned Document [facility] Health Information Management [address] [place] [address] External, Provider Social History Tobacco Use Types [...] [facility] [place], [place], [facility] documented in this encounter Visit Diagnoses Not on filedocumented in this encounter Additional Health Concerns Infection Onset Date Last Indicated Resolved Time COVID-19 03/05/2022 03/05/2022 03/15/2022 7:18 PM EDT documented as of this encounter Care Teams Snake Charmer Relationship Specialty Start Date End Date Caitlyn Bowie MD 3400 [facility] 1 [place] [address] PCP - General Internal Medicine 05/06/21 Henry Kelly MD Pulmonary Department [address] [place] [address], [address] [place] [address] Physician Pulmonary Disease 09/06/17 06/22/20 documented as of this encounter
--- OUTSIDE RECORDS SUMMARY | 2025-05-21 17:01 | XMS_ITS | Encounter Summary ---
Author Organization [facility] Address [address] [place] [address] Care Team Providers Care Cabinetmaker Apprentice Name Role Phone Caitlyn Bowie MD Primary Care Provider +1- [phone] Encounter Details Date Type Department Care Team ([facility] st Contact Info) Description 04/11/2019 Scanned Document [facility] Health Information Management [address] [place] [phone] External, Provider Social History Tobacco Use Types [...] documented as of this encounter Care Teams Cabinetmaker Apprentice Relationship Specialty Start Date End Date Caitlyn Bowie MD [address] [address] PCP - General Internal Medicine 05/06/21 Henry Kelly MD Pulmonary Department [address] [place] [address], [address] [place] [address] Physician Pulmonary Disease 09/06/17 06/22/20 documented as of this encounter
--- OUTSIDE RECORDS SUMMARY | 2025-05-21 17:01 | XMS_ITS | Encounter Summary ---
Author Organization [facility] and [facility] Address [address] [place] [address] Care Team Providers Care Hoop Coiling Machine Operator Name Role Phone aCitlyn Bowie MD Primary Care Provider +1- [phone] Encounter Details Date Type Department Care Team ([facility] st Contact Info) Description 04/22/2022 Scanned Document INTERFACE DEFAULT [address] [place] [address] System, Provider Not In Social History Tobacco [...] End Date Caitlyn Bowie MD [address] [address] PCP - General Internal Medicine 05/06/21 documented as of this encounter
--- OUTSIDE RECORDS SUMMARY | 2025-05-21 17:01 | XMS_ITS | Encounter Summary ---
Author Organization [facility] and [facility] Address [address] [place] [address] Care Team Providers Care Grades 7 And 8 Teacher Name Role Phone Caitlyn Bowie MD Primary Care Provider +1- [phone] Encounter Details Date Type Department Care Team (Late st Contact Info) Description 05/04/2022 Scanned Document INTERFACE DEFAULT [address] [place] [address] System, Provider Not In Social History Tobacco [...] as of this encounter Care Teams Grades 7 And 8 Teacher Relationship Specialty Start Date End Date Caitlyn Bowie MD [address] [address] PCP - General Internal Medicine 05/06/21 documented as of this encounter
--- OUTSIDE RECORDS SUMMARY | 2025-05-21 17:01 | XMS_ITS | Encounter Summary ---
Author Organization [facility] and [facility] Address [address] [place] [address] Care Team Providers Care Web Search Evaluator Name Role Phone Caitlyn Bowie MD Primary Care Provider +1- [phone] Encounter Details Date Type Department Care Team (Late st Contact Info) Description 01/28/2019 Scanned Document [facility] at [address] [place] [address] Cristian Arreguin MBBS [address] [place] [address] Social History Tobacco Use Types [...] as of this encounter Care Teams Web Search Evaluator Relationship Specialty Start Date End Date Caitlyn Bowie MD 3400 [facility] 1 [place] [address] PCP - General Internal Medicine 05/06/21 Henry Kelly MD Pulmonary Department 175 [facility], [address] [place] [address] Physician Pulmonary Disease 09/06/17 06/22/20 documented as of this encounter
--- OUTSIDE RECORDS SUMMARY | 2025-05-21 17:01 | XMS_ITS | Encounter Summary ---
Author Organization [facility] and [facility] Address [address] [place] [address] Care Team Providers Care Computational Sciences Professor Name Role Phone Caitlyn Bowie MD Primary Care Provider +1- [phone] Encounter Details Date Type Department Care Team (Late st Contact Info) Description 04/22/2019 Scanned Document [facility] Health Information Management [address] [place] [address] External, Provider Social History Tobacco Use Types [...] End Date Caitlyn Bowie MD [address] [address] PCP - General Internal Medicine 05/06/21 Henry Kelly MD Pulmonary Department [address] [place] [address], [address] [place] [address] Physician Pulmonary Disease 09/06/17 06/22/20 documented as of this encounter
--- OUTSIDE RECORDS SUMMARY | 2025-05-21 17:01 | XMS_ITS | Encounter Summary ---
Author Organization [facility] Address [address] [place] [address] Care Team Providers Care Wire Brusher Name Role Phone Caitlyn Bowie MD Primary Care Provider +1- [phone] Encounter Details Date Type Department Care Team ([facility] st Contact Info) Description 01/08/2019 Scanned Document [facility] Health Information Management [address] [place] [address] External, Provider Social History Tobacco Use Types [...] as of this encounter Care Teams Wire Brusher Relationship Specialty Start Date End Date Caitlyn Bowie MD [address] [address] PCP - General Internal Medicine 05/06/21 Henry Kelly MD Pulmonary Department [address] [place] [address], [address] [place] [address] Physician Pulmonary Disease 09/06/17 06/22/20 documented as of this encounter
--- OUTSIDE RECORDS SUMMARY | 2025-05-21 17:01 | XMS_ITS | Encounter Summary ---
Author Organization [facility] Address [address] [place] [address] Care Team Providers Care Mainframe Systems Engineer Name Role Phone Caitlyn Bowie MD Primary Care Provider +1- [phone] Encounter Details Date Type Department Care Team (Late st Contact Info) Description 01/26/2019 Scanned Document [facility] Health Information Management [address] [place] [address] External, Provider Social History Tobacco Use [...] documented as of this encounter Care Teams Mainframe Systems Engineer Relationship Specialty Start Date End Date Caitlyn Bowie MD 3400 [facility] 1 [place] [address] PCP - General Internal Medicine 05/06/21 Henry Kelly MD Pulmonary Department 175 [facility], [address] [place] [address] Physician Pulmonary Disease 09/06/17 06/22/20 documented as of this encounter
--- OUTSIDE RECORDS SUMMARY | 2025-05-21 17:01 | XMS_ITS | Encounter Summary ---
Author Organization [facility] and [facility] Address [address] [place] [address] Care Team Providers Care Building Rigger Name Role Phone Caitlyn Bowie MD Primary Care Provider +1- [phone] Encounter Details Date Type Department Care Team (Late st Contact Info) Description 12/31/2015 Scanned Document [facility] Program [address] [place] [address] External, Provider Social History Tobacco Use Types [...] External LAB BLOOD ORDERABLES Final Res ult [facility] [place], [place], [facility] documented in this encounter Visit Diagnoses Not on filedocumented in this encounter Additional Health Concerns Infection Onset Date Last Indicated Resolved Time COVID-19 03/05/2022 03/05/2022 03/15/2022 7:18 PM EDT documented as of this encounter Care Teams Building Rigger Relationship Specialty Start Date End Date Caitlyn Bowie MD 3400 [facility] 1 [place] [address] PCP - General Internal Medicine 05/06/21 Henry Kelly MD Pulmonary Department [address] [place] [address], [address] [place] [address] Physician Pulmonary Disease 09/06/17 06/22/20 documented as of this encounter
--- OUTSIDE RECORDS SUMMARY | 2025-05-21 17:01 | XMS_ITS | Encounter Summary ---
Author Organization [facility] and [facility] Address [address] [place] [address] Care Team Providers Care Enterprise Manager Name Role Phone Caitlyn Bowie MD Primary Care Provider +1- [phone] Encounter Details Date Type Department Care Team (Late st Contact Info) Description 12/01/2015 Scanned Document [facility] Health Information Management [address] [place] [address] External, Provider Social History Tobacco Use Types [...] IMG SCAN REPORTS Edited Result - Final [facility] [place], [place], [facility] documented in this encounter Visit Diagnoses Not on filedocumented in this encounter Additional Health Concerns Infection Onset Date Last Indicated Resolved Time COVID-19 03/05/2022 03/05/2022 03/15/2022 7:18 PM EDT documented as of this encounter Care Teams Enterprise Manager Relationship Specialty Start Date End Date Caitlyn Bowie MD [address] [address] PCP - General Internal Medicine 05/06/21 Henry Kelly MD Pulmonary Department 175 [facility], [address] [place] [address] Physician Pulmonary Disease 09/06/17 06/22/20 documented as of this encounter
--- OUTSIDE RECORDS SUMMARY | 2025-05-21 17:01 | XMS_ITS | Encounter Summary ---
Author Organization [facility] Address [address] [place] [address] Care Team Providers Care Material Yard Clerk Name Role Phone Caitlyn Bowie MD Primary Care Provider +1- [phone] Encounter Details Date Type Department Care Team (Late st Contact Info) Description 12/29/2021 Telephone [facility] at [address] - [address] [address] Ronald Mills MD [address] [place] [phone] Social History Tobacco Use Types Packs/Day [...] not sure where the blood's coming from. [phone] documented in this encounter Plan of Treatment Not on file documented as of this encounter Visit Diagnoses Not on filedocumented in this encounter Additional Health Concerns Infection Onset Date Last Indicated Resolved Time COVID-19 03/05/2022 03/05/2022 03/15/2022 7:18 PM EDT Assessment Noted Time PHQ-9 Depression Total Score: 2 11/07/19 19 2:06 PM EDT documented as of this encounter Care Teams Material Yard Clerk Relationship Specialty Start Date End Date Caitlyn Bowie MD [facility] [address] [address] PCP - General Internal Medicine 05/06/21 documented as of this encounter
--- OUTSIDE RECORDS SUMMARY | 2025-05-21 17:01 | XMS_ITS | Encounter Summary ---
Author Organization [facility] and [facility] Address [address] [place] [address] Care Team Providers Care Waste Reclaimer Name Role Phone Caitlyn Bowie MD Primary Care Provider +1- [phone] Encounter Details Date Type Department Care Team (Late st Contact Info) Description 11/03/2015 Scanned Document [facility] Health Information Management [address] [place] [address] External, Provider Social History Tobacco Use Types [...] [facility] [place], [facility] documented in this encounter Visit Diagnoses Not on filedocumented in this encounter Additional Health Concerns Infection Onset Date Last Indicated Resolved Time COVID-19 03/05/2022 03/05/2022 03/15/2022 7:18 PM EDT documented as of this encounter Care Teams Waste Reclaimer Relationship Specialty Start Date End Date Caitlyn Bowie MD [address] [address] PCP - General Internal Medicine 05/06/21 Henry Kelly MD Pulmonary Department 175 [facility], [address] [place] [address] Physician Pulmonary Disease 09/06/17 06/22/20 documented as of this encounter
--- OUTSIDE RECORDS SUMMARY | 2025-05-21 17:01 | XMS_ITS | Encounter Summary ---
Author Organization [facility] Address [address] [place] [address] Care Team Providers Care Questioned Documents Examiner Name Role Phone Caitlyn Bowie MD Primary Care Provider +1- [phone] Encounter Details Date Type Department Care Team (Late st Contact Info) Description 04/25/2022 Scanned Document INTERFACE DEFAULT [address] [place] [address] System, Provider Not In Social History Tobacco [...] documented as of this encounter Care Teams Questioned Documents Examiner Relationship Specialty Start Date End Date Caitlyn Bowie MD [address] [address] PCP - General Internal Medicine 05/06/21 documented as of this encounter
--- OUTSIDE RECORDS SUMMARY | 2025-05-21 17:01 | XMS_ITS | Encounter Summary ---
Author Organization [facility] and [facility] Address [address] [place] [address] Care Team Providers Care Shade Cutter Name Role Phone Caitlyn Bowie MD Primary Care Provider +1- [phone] Encounter Details Date Type Department Care Team ([facility] st Contact Info) Description 01/30/2019 Scanned Document [facility] Health Information Management [address] [place] [address] External, Provider Social History Tobacco Use Types [...] documented as of this encounter Care Teams Shade Cutter Relationship Specialty Start Date End Date Caitlyn Bowie MD [address] [address] PCP - General Internal Medicine 05/06/21 Henry Kelly MD Pulmonary Department [address] [place] [address], [address] [place] [address] Physician Pulmonary Disease 09/06/17 06/22/20 documented as of this encounter
--- OUTSIDE RECORDS SUMMARY | 2025-05-21 17:01 | XMS_ITS | Encounter Summary ---
Author Organization [facility] Address [address] [place] [address] Care Team Providers Care Roll Hand Name Role Phone Caitlyn Bowie MD Primary Care Provider +1- [phone] Encounter Details Date Type Department Care Team ([facility] st Contact Info) Description 04/18/2025 Scanned Document INTERFACE DEFAULT [address] [place] [address] System, Provider Not In Social History Tobacco [...] as of this encounter Care Teams Roll Hand Relationship Specialty Start Date End Date Caitlyn Bowie MD [address] [address] PCP - General Internal Medicine 05/06/21 documented as of this encounter
--- OUTSIDE RECORDS SUMMARY | 2025-05-21 17:01 | XMS_ITS | Encounter Summary ---
Author Organization [facility] and [facility] Address 20 [place] [address] Care Team Providers Care Cook Specialty Foreign Food Name Role Phone Caitlyn Bowie MD Primary Care Provider +1- [phone] Encounter Details Date Type Department Care Team (Late st Contact Info) Description 05/10/2022 Scanned Document Cardiovascular Medicine at 175 [facility] 175 [facility] THIRD [place], [place] [address] Norma Renee MD [address] [place] [phone] Social History Tobacco Use Types Packs/Day Years [...] of this encounter Care Teams Cook Specialty Foreign Food Relationship Specialty Start Date End Date Caitlyn Bowie MD [address] [address] PCP - General Internal Medicine 05/06/21 documented as of this encounter
--- OUTSIDE RECORDS SUMMARY | 2025-05-21 17:01 | XMS_ITS | Encounter Summary ---
Author Organization [facility] Address [address] [place] [address] Care Team Providers Care Manufacturing Plant Technician Name Role Phone Caitlyn Bowie MD Primary Care Provider +1- [phone] Encounter Details Date Type Department Care Team ([facility] st Contact Info) Description 01/02/2019 Scanned Document [facility] Health Information Management [address] [place] [phone] External, Provider Social History Tobacco Use Types [...] as of this encounter Care Teams Manufacturing Plant Technician Relationship Specialty Start Date End Date Caitlyn Bowie MD 3400 [facility] 1 [place] [address] PCP - General Internal Medicine 05/06/21 Henry Kelly MD Pulmonary Department 175 [facility], [address] [place] [address] Physician Pulmonary Disease 09/06/17 06/22/20 documented as of this encounter
--- OUTSIDE RECORDS SUMMARY | 2025-05-21 17:01 | XMS_ITS | Encounter Summary ---
Author Organization [facility] and [facility] Address [address] [place] [address] Care Team Providers Care Java Software Name Role Phone Caitlyn Bowie MD Primary Care Provider +1- [phone] Encounter Details Date Type Department Care Team (Late st Contact Info) Description 04/14/2022 Scanned Document INTERFACE DEFAULT [address] [place] [phone] System, Provider Not In Social History Tobacco [...] of this encounter Care Teams Java Software Relationship Specialty Start Date End Date Caitlyn Bowie MD [address] [address] PCP - General Internal Medicine 05/06/21 documented as of this encounter
--- OUTSIDE RECORDS SUMMARY | 2025-05-21 17:01 | XMS_ITS | Encounter Summary ---
Author Organization [facility] Address [address] [place] [address] Care Team Providers Care Leather Dresser Name Role Phone Caitlyn Bowie MD Primary Care Provider +1- [phone] Encounter Details Date Type Department Care Team ([facility] st Contact Info) Description 01/13/2019 Scanned Document [facility] Health Information Management [address] [place] [address] External, Provider Social History Tobacco Use Types [...] as of this encounter Care Teams Leather Dresser Relationship Specialty Start Date End Date Caitlyn Bowie MD 3400 [facility] 1 [place] [address] PCP - General Internal Medicine 05/06/21 Henry Kelly MD Pulmonary Department 175 [facility], [address] [place] [address] Physician Pulmonary Disease 09/06/17 06/22/20 documented as of this encounter
--- OUTSIDE RECORDS SUMMARY | 2025-05-21 17:01 | XMS_ITS | Encounter Summary ---
Author Organization [facility] Address [address] [place] [address] Phone Care Team Providers Care Channel Business Manager Name Role Phone Caitlyn Bowie MD Primary Care Provider +1- [phone] Encounter Details Date Type Department Care Team (Late st Contact Info) Description 10/01/2024 Documentation Only [facility] [address] [place] [address] Ron Taylor [place] [address] [place] [address] Social History Tobacco Use Types [...] [facility] [address] [place] [address] Rubén Ashraf MD [address] [place] [address] [place] [address] documented as of this encounter Visit Diagnoses Not on filedocumented in this encounter Care Teams Channel Business Manager Relationship Specialty Start Date End Date Caitlyn Bowie MD 3400 [place], [place] PCP - General Internal Medicine 09/24/24 documented as of this encounter
--- OUTSIDE RECORDS SUMMARY | 2025-05-21 17:01 | XMS_ITS | Encounter Summary ---
Author Organization [facility] Address [address] [place] [address] Care Team Providers Care Costume Designer Name Role Phone Caitlyn Bowie MD Primary Care Provider +1- [phone] Encounter Details Date Type Department Care Team ([facility] st Contact Info) Description 01/08/2022 Scanned Document INTERFACE DEFAULT [address] [place] [address] System, Provider Not In Social History Tobacco [...] as of this encounter Care Teams Costume Designer Relationship Specialty Start Date End Date Caitlyn Bowie MD [address] [address] PCP - General Internal Medicine 05/06/21 documented as of this encounter
--- OUTSIDE RECORDS SUMMARY | 2025-05-21 17:01 | XMS_ITS | Encounter Summary ---
Author Organization [facility] Address [address] [place] [address] Care Team Providers Care Pediatric Physical Therapist Name Role Phone Caitlyn Bowie MD Primary Care Provider +1- [phone] Encounter Details Date Type Department Care Team ([facility] st Contact Info) Description 01/09/2019 Scanned Document [facility] Health Information Management [address] [place] [address] External, Provider Social History Tobacco Use Types [...] as of this encounter Care Teams Pediatric Physical Therapist Relationship Specialty Start Date End Date Caitlyn Bowie MD 3400 [facility] 1 [place] [address] PCP - General Internal Medicine 05/06/21 Hnery Kelly MD Pulmonary Department 175 [facility], [address] [place] [address] Physician Pulmonary Disease 09/06/17 06/22/20 documented as of this encounter
--- OUTSIDE RECORDS SUMMARY | 2025-05-21 17:01 | XMS_ITS | Encounter Summary ---
Author Organization [facility] Address [address] [place] [address] Care Team Providers Care Pantry Goods Worker Name Role Phone Caitlyn Bowie MD Primary Care Provider +1- [phone] Encounter Details Date Type Department Care Team ([facility] st Contact Info) Description 04/19/2022 Scanned Document INTERFACE DEFAULT [address] [place] [address] System, Provider Not In Social History Tobacco [...] documented as of this encounter Care Teams Pantry Goods Worker Relationship Specialty Start Date End Date Caitlyn Bowie MD [address] [address] PCP - General Internal Medicine 05/06/21 documented as of this encounter
--- OUTSIDE RECORDS SUMMARY | 2025-05-21 17:01 | XMS_ITS | Encounter Summary ---
Author Organization [facility] Address [address] [place] [address] Care Team Providers Care International Account Manager Name Role Phone Caitlyn Bowie MD Primary Care Provider +1- [phone] Encounter Details Date Type Department Care Team ([facility] st Contact Info) Description 04/16/2022 Scanned Document INTERFACE DEFAULT [address] [place] [address] System, Provider Not In Social History Tobacco [...] as of this encounter Care Teams International Account Manager Relationship Specialty Start Date End Date Caitlyn Bowie MD [address] [address] PCP - General Internal Medicine 05/06/21 documented as of this encounter
--- OUTSIDE RECORDS SUMMARY | 2025-05-21 17:02 | XMS_ITS | Encounter Summary ---
Author Organization [facility] Address [address] [place] [address] Care Team Providers Care Customer Solutions Teammate Name Role Phone Caitlyn Bowie MD Primary Care Provider +1- [phone] Encounter Details Date Type Department Care Team ([facility] st Contact Info) Description 07/08/2016 Scanned Document [facility] Health Information Management [address] [place] [address] External, Provider Social History Tobacco Use Types [...] BLOOD ORDERABLES Final Res ult [facility] [place], [place], [place] documented in this encounter Visit Diagnoses Not on filedocumented in this encounter Additional Health Concerns Infection Onset Date Last Indicated Resolved Time COVID-19 03/05/2022 03/05/2022 03/15/2022 7:18 PM EDT documented as of this encounter Care Teams Customer Solutions Teammate Relationship Specialty Start Date End Date Caitlyn Bowie MD 3400 [facility] 1 [place] [address] PCP - General Internal Medicine 05/06/21 Henry Kelly MD Pulmonary Department 175 [facility], [address] [place] [address] Physician Pulmonary Disease 09/06/17 06/22/20 documented as of this encounter
--- OUTSIDE RECORDS SUMMARY | 2025-05-21 17:02 | XMS_ITS | Encounter Summary ---
Author Organization [facility] Address [address] [place] [address] Care Team Providers Care Field Adjuster Name Role Phone Caitlyn Bowie MD Primary Care Provider +1- [phone] Encounter Details Date Type Department Care Team (Late st Contact Info) Description 12/16/2016 Scanned Document [facility] Health Information Management [address] [place] [address] External, Provider Social History Tobacco Use Types [...] as of this encounter Care Teams Field Adjuster Relationship Specialty Start Date End Date Caitlyn Bowie MD 3400 [facility] 1 [place] [address] PCP - General Internal Medicine 05/06/21 Henry Kelly MD Pulmonary Department 175 [facility], [address] [place] [address] Physician Pulmonary Disease 09/06/17 06/22/20 documented as of this encounter
--- OUTSIDE RECORDS SUMMARY | 2025-05-21 17:02 | XMS_ITS | Encounter Summary ---
Author Organization [facility] Address [address] [place] [address] Care Team Providers Care Surgical Elastic Knitter Name Role Phone Caitlyn Bowie MD Primary Care Provider +1- [phone] Encounter Details Date Type Department Care Team ([facility] st Contact Info) Description 09/09/2024 Scanned Document INTERFACE DEFAULT [address] [place] [address] System, Provider Not In Social History Tobacco [...] End Date Caitlyn Bowie MD [address] [address] PCP - General Internal Medicine 05/06/21 documented as of this encounter
--- OUTSIDE RECORDS SUMMARY | 2025-05-21 17:02 | XMS_ITS | Encounter Summary ---
Author Organization [facility] Address [address] [place] [address] Care Team Providers Care Strategic Marketing Leader Name Role Phone Caitlyn Bowie MD Primary Care Provider +1- [phone] Encounter Details Date Type Department Care Team ([facility] st Contact Info) Description 06/17/2016 Scanned Document [facility] Health Information Management [address] [place] [address] External, Provider Social History Tobacco Use Types [...] as of this encounter Care Teams Strategic Marketing Leader Relationship Specialty Start Date End Date Caitlyn Bowie MD [address] [address] PCP - General Internal Medicine 05/06/21 Henry Kelly MD Pulmonary Department 175 [facility], [address] [place] [address] Physician Pulmonary Disease 09/06/17 06/22/20 documented as of this encounter
--- OUTSIDE RECORDS SUMMARY | 2025-05-21 17:02 | XMS_ITS | Encounter Summary ---
Author Organization [facility] Address [address] [place] [address] Care Team Providers Care Property Adjuster Name Role Phone Caitlyn Bowie MD Primary Care Provider +1- [phone] Encounter Details Date Type Department Care Team ([facility] st Contact Info) Description 08/08/2024 Scanned Document INTERFACE DEFAULT [address] [place] [phone] System, Provider Not In Social History Tobacco [...] as of this encounter Care Teams Property Adjuster Relationship Specialty Start Date End Date Caitlyn Bowie MD [address] [address] PCP - General Internal Medicine 05/06/21 documented as of this encounter
--- OUTSIDE RECORDS SUMMARY | 2025-05-21 17:02 | XMS_ITS | Encounter Summary ---
Author Organization [facility] Address [address] [place] [address] Care Team Providers Care Merchandise Flow Team Member Name Role Phone Caitlyn Bowie MD Primary Care Provider +1- [phone] Encounter Details Date Type Department Care Team (Late st Contact Info) Description 07/27/2016 Scanned Document [facility] On[facility] at [facility] [address] [address] Suzy Kong MD 6 [place] [address] Social History Tobacco Use Types [...] as of this encounter Care Teams Merchandise Flow Team Member Relationship Specialty Start Date End Date Caitlyn Bowie MD [address] [address] PCP - General Internal Medicine 05/06/21 Henry Kelly MD Pulmonary Department [address] [place] [address], [address] [place] [address] Physician Pulmonary Disease 09/06/17 06/22/20 documented as of this encounter
--- OUTSIDE RECORDS SUMMARY | 2025-05-21 17:02 | XMS_ITS | Encounter Summary ---
Author Organization [facility] and [facility] Address [address] [place] [address] Care Team Providers Care Package Wrapper Name Role Phone Caitlyn Bowie MD Primary Care Provider +1- [phone] Encounter Details Date Type Department Care Team ([facility] st Contact Info) Description 10/23/2024 Scanned Document INTERFACE DEFAULT [address] [place] [address] System, Provider Not In Social History Tobacco [...] documented as of this encounter Care Teams Package Wrapper Relationship Specialty Start Date End Date aCitlyn Bowie MD [address] [address] PCP - General Internal Medicine 05/06/21 documented as of this encounter
--- OUTSIDE RECORDS SUMMARY | 2025-05-21 17:02 | XMS_ITS | Encounter Summary ---
Author Organization [facility] and [facility] Address [address] [place] [address] Care Team Providers Care Service Center Coordinator Name Role Phone Caitlyn Bowie MD Primary Care Provider +1- [phone] Encounter Details Date Type Department Care Team ([facility] st Contact Info) Description 09/23/2024 Scanned Document INTERFACE DEFAULT [address] [place] [address] System, Provider Not In Social History Tobacco [...] as of this encounter Care Teams Service Center Coordinator Relationship Specialty Start Date End Date Caitlyn Bowie MD [address] [address] PCP - General Internal Medicine 05/06/21 documented as of this encounter
--- OUTSIDE RECORDS SUMMARY | 2025-05-21 17:02 | XMS_ITS | Encounter Summary ---
Author Organization [facility] and [facility] Address [address] [place] [address] Care Team Providers Care Cue Worker Name Role Phone Caitlyn Bowie MD Primary Care Provider +1- [phone] Encounter Details Date Type Department Care Team ([facility] st Contact Info) Description 12/14/2016 Scanned Document [facility] Health Information Management [address] [place] [address] External, Provider Social History Tobacco Use Types [...] documented as of this encounter Care Teams Cue Worker Relationship Specialty Start Date End Date Caitlyn Bowie MD [address] [address] PCP - General Internal Medicine 05/06/21 Henry Kelly MD Pulmonary Department 175 [facility], [address] [place] [address] Physician Pulmonary Disease 09/06/17 06/22/20 documented as of this encounter
--- OUTSIDE RECORDS SUMMARY | 2025-05-21 17:02 | XMS_ITS | Encounter Summary ---
Author Organization [facility] and [facility] Address [address] [place] [address] Care Team Providers Care Guest Services Agent Name Role Phone Caitlyn Bowie MD Primary Care Provider +1- [phone] Encounter Details Date Type Department Care Team (Late st Contact Info) Description 04/08/2024 Scanned Document INTERFACE DEFAULT [address] [place] [address] System, Provider Not In Social History Tobacco [...] of this encounter Care Teams Guest Services Agent Relationship Specialty Start Date End Date Caitlyn Bowie MD [address] [address] PCP - General Internal Medicine 05/06/21 documented as of this encounter
--- OUTSIDE RECORDS SUMMARY | 2025-05-21 17:02 | XMS_ITS | Encounter Summary ---
Author Organization [facility] and [facility] Address [address] [place] [address] Care Team Providers Care Recovery Agent Name Role Phone Caitlyn Bowie MD Primary Care Provider +1- [phone] Encounter Details Date Type Department Care Team ([facility] st Contact Info) Description 04/19/2024 Scanned Document INTERFACE DEFAULT [address] [place] [address] System, Provider Not In Social History Tobacco [...] as of this encounter Care Teams Recovery Agent Relationship Specialty Start Date End Date Caitlyn Bowie MD [address] [address] PCP - General Internal Medicine 05/06/21 documented as of this encounter
--- OUTSIDE RECORDS SUMMARY | 2025-05-21 17:02 | XMS_ITS | Encounter Summary ---
Author Organization [facility] Address [address] [place] [address] Care Team Providers Care Tie Maker Name Role Phone Caitlyn Bowie MD Primary Care Provider +1- [phone] Encounter Details Date Type Department Care Team (Late st Contact Info) Description 12/16/2016 Scanned Document [facility] Health Information Management [address] [place] [address] External, Provider Social History Tobacco Use Types [...] as of this encounter Care Teams Tie Maker Relationship Specialty Start Date End Date Caitlyn Bowie MD 3400 [facility] [address] [place] [address] PCP - General Internal Medicine 05/06/21 Henry Kelly MD Pulmonary Department 175 [facility], [address] [place] [address] Physician Pulmonary Disease 09/06/17 06/22/20 documented as of this encounter
--- OUTSIDE RECORDS SUMMARY | 2025-05-21 17:02 | XMS_ITS | Encounter Summary ---
Author Organization [facility] and [facility] Address [address] [place] [address] Care Team Providers Care Tree Scout Name Role Phone Caitlyn Bowie MD Primary Care Provider +1- [phone] Encounter Details Date Type Department Care Team (Late st Contact Info) Description 04/04/2016 Scanned Document [facility] Health Information Management [address] [place] [address] External, Provider Social History Tobacco Use Types [...] Final Res ult [facility] [place], [place], [facility] documented in this encounter Visit Diagnoses Not on filedocumented in this encounter Additional Health Concerns Infection Onset Date Last Indicated Resolved Time COVID-19 03/05/2022 03/05/2022 03/15/2022 7:18 PM EDT documented as of this encounter Care Teams Tree Scout Relationship Specialty Start Date End Date Caitlyn Bowie MD 3400 [facility] [address] [place] [address] PCP - General Internal Medicine 05/06/21 Henry Kelly MD Pulmonary Department 175 [facility], [address] [place] [address] Physician Pulmonary Disease 09/06/17 06/22/20 documented as of this encounter
--- OUTSIDE RECORDS SUMMARY | 2025-05-21 17:02 | XMS_ITS | Encounter Summary ---
Author Organization [facility] Address [address] [place] [address] Care Team Providers Care Pan Tank Worker Name Role Phone Caitlyn Bowie MD Primary Care Provider +1- [phone] Reason for Referral * Imaging (Routine) - Closed Specialty Diagnoses / Procedures Referred By Arthur dobbs Referred To Contact Procedures NM Lung Ventilation Perfusion ([facility]) External, Provider Referral ID Status Reason Start Date Expiration Date Visits Re quested Visits Authorized [id number] Closed 08/22/2016 08/22/2017 4 4 Encounter Details Date Type Department Care Team (Late st Contact Info) Description 08/22/2016 Scanned Document Thoracic Oncology Program at [address] [address] External, Provider Social History Tobacco Use Types [...] SCAN REPORTS Final Result Performing Organization Address [facility] Co de Phone Number [facility] * CT Result Scan (07/27/2016) us Provider External IMG SCAN REPORTS Final Result Performing Organization Address [facility] Co de Phone Number [facility] * Cardiac EKG Result Scan (07/27/2016) us Provider External CV CARDIAC REPORT (CVR) Final Result Performing Organization Address [facility] Co de Phone Number [facility] * CT Result Scan (07/27/2016) us Provider External IMG SCAN REPORTS Final Result Performing Organization Address [facility] de Phone Number [facility] * Lab Scan (07/27/2016) Blood specimen (specimen) us Provider External LAB BLOOD ORDERABLES Final Res ult Performing Organization Address [facility] Co de Phone Number [facility] * NM Lung Ventilation Perfusion ([facility]) (07/27/2016) Anatomical Region Laterality Modality Chest, Lung Nuclear Medicine us Provider External IMG NM ORDERABLES Final Result documented in this encounter Visit Diagnoses Not on filedocumented in this encounter Additional Health Concerns Infection Onset Date Last Indicated Resolved Time COVID-19 03/05/2022 03/05/2022 03/15/2022 7:18 PM EDT documented as of this encounter Care Teams Pan Tank Worker Relationship Specialty Start Date End Date Caitlyn Bowie MD 3400 [facility] [address] [place] [address] PCP - General Internal Medicine 05/06/21 Henry Kelly MD Pulmonary Department 175 [facility], [address] [place] [address] Physician Pulmonary Disease 09/06/17 06/22/20 documented as of this encounter
--- OUTSIDE RECORDS SUMMARY | 2025-05-21 17:02 | XMS_ITS | Clinical Summary ---
Author Organization [facility], Address [address] [place] [address] [place] [address] Phone Care Team Providers Care Surgical Tech Name Role Phone Caitlyn Bowie MD Primary Care Provider +1- [phone] Allergies Active Allergy Reactions Criticality Noted Date [...] [facility] [address] [place] [address] Marina Abdi 03/17/2025 Documentation Only [facility] [address] [place] [address] Marina Abdi 03/17/2025 Orders Only [facility] [address] [place] [address] Marina Abdi Smells of urine (Primary [...] Visit [facility] [address] [place] [phone] Rubén Ashraf MD [address] [facility] [place] [address] Health Maintenance Due Date Last Done Comments Influenza Vaccine (#1) 2025 0, 04/22/2019, 04/18/2016 Pneumococcal Vaccine: 50+ Years Completed 08/31/2021, 03/25/2016, 09/17/2015, Additional history exists Hepatitis B Vaccine Aged Out No longe r eligible based on patient's age to complete this topic Insurance Medicare [facility] Care Teams Surgical Tech Relationship Specialty Start Date End Date Caitlyn Bowie MD [address] [place], [place] PCP - General Internal Medicine 09/24/24
--- OUTSIDE RECORDS SUMMARY | 2025-05-21 17:02 | XMS_ITS | Encounter Summary ---
Author Organization [facility] Address [address] [place] [address] Care Team Providers Care Machine Filler Name Role Phone Caitlyn Bowie MD Primary Care Provider +1- [phone] Encounter Details Date Type Department Care Team ([facility] st Contact Info) Description 06/17/2016 Scanned Document [facility] Health Information Management [address] [place] [address] External, Provider Social History Tobacco Use Types [...] as of this encounter Care Teams Machine Filler Relationship Specialty Start Date End Date Caitlyn Bowie MD [address] [address] PCP - General Internal Medicine 05/06/21 Henry Kelly MD Pulmonary Department 175 [facility], [address] [place] [address] Physician Pulmonary Disease 09/06/17 06/22/20 documented as of this encounter
--- OUTSIDE RECORDS SUMMARY | 2025-05-21 17:02 | XMS_ITS | Encounter Summary ---
Author Organization [facility] Address [address] [place] [address] Care Team Providers Care Elementary Substitute Teacher Name Role Phone Caitlyn Bowie MD Primary Care Provider +1- [phone] Encounter Details Date Type Department Care Team ([facility] st Contact Info) Description 09/15/2024 Scanned Document INTERFACE DEFAULT [address] [place] [address] System, Provider Not In Social History Tobacco [...] as of this encounter Care Teams Elementary Substitute Teacher Relationship Specialty Start Date End Date Caitlyn Bowie MD [address] [address] PCP - General Internal Medicine 05/06/21 documented as of this encounter
--- OUTSIDE RECORDS SUMMARY | 2025-05-21 17:02 | XMS_ITS | Encounter Summary ---
Author Organization [facility] and [facility] Address [address] [place] [address] Care Team Providers Care Coconut Boiler Name Role Phone Caitlyn Bowie MD Primary Care Provider +1- [phone] Encounter Details Date Type Department Care Team (Late st Contact Info) Description 06/17/2016 Scanned Document [facility] Health Information Management [address] [place] [address] External, Provider Social History Tobacco Use Types [...] Provider External IMG SCAN REPORTS Final Result [facility] [place], [place], [facility] documented in this encounter Visit Diagnoses Not on filedocumented in this encounter Additional Health Concerns Infection Onset Date Last Indicated Resolved Time COVID-19 03/05/2022 03/05/2022 03/15/2022 7:18 PM EDT documented as of this encounter Care Teams Coconut Boiler Relationship Specialty Start Date End Date Caitlyn Bowie MD 3400 [facility] [address] [place] [address] PCP - General Internal Medicine 05/06/21 Henry Kelly MD Pulmonary Department 175 [facility], [address] [place] [address] Physician Pulmonary Disease 09/06/17 06/22/20 documented as of this encounter
--- OUTSIDE RECORDS SUMMARY | 2025-05-21 17:02 | XMS_ITS | Encounter Summary ---
Author Organization [facility] and [facility] Address [address] [place] [address] Care Team Providers Care Program And Research Coordinator Name Role Phone Caitlyn Bowie MD Primary Care Provider +1- [phone] Encounter Details Date Type Department Care Team ([facility] st Contact Info) Description 10/10/2016 Scanned Document [facility] Health Information Management [address] [place] [address] External, Provider Social History Tobacco Use Types [...] as of this encounter Care Teams Program And Research Coordinator Relationship Specialty Start Date End Date Caitlyn Bowie MD [address] [address] PCP - General Internal Medicine 05/06/21 Henry Kelly MD Pulmonary Department 175 [facility], [address] [place] [address] Physician Pulmonary Disease 09/06/17 06/22/20 documented as of this encounter
--- OUTSIDE RECORDS SUMMARY | 2025-05-21 17:02 | XMS_ITS | Encounter Summary ---
Author Organization [facility] Address [address] [place] [address] Care Team Providers Care Handle Rounder Operator Name Role Phone Caitlyn Bowie MD Primary Care Provider +1- [phone] Encounter Details Date Type Department Care Team (Late st Contact Info) Description 07/27/2016 Scanned Document Thoracic Oncology Program at [facility] [address] [address] Suzy Kong MD [address] [place] [address] Social History Tobacco Use Types [...] as of this encounter Care Teams Handle Rounder Operator Relationship Specialty Start Date End Date Caitlyn Bowie MD [address] [address] PCP - General Internal Medicine 05/06/21 Henry Kelly MD Pulmonary Department [address] [place] [address], [address] [place] [address] Physician Pulmonary Disease 09/06/17 06/22/20 documented as of this encounter
--- OUTSIDE RECORDS SUMMARY | 2025-05-21 17:02 | XMS_ITS | Encounter Summary ---
Author Organization [facility] Address [address] [place] [address] Care Team Providers Care Missile Pad Mechanic Name Role Phone Caitlyn Bowie MD Primary Care Provider +1- [phone] Encounter Details Date Type Department Care Team ([facility] st Contact Info) Description 04/23/2024 Scanned Document INTERFACE DEFAULT [address] [place] [address] System, Provider Not In Social History Tobacco [...] as of this encounter Care Teams Missile Pad Mechanic Relationship Specialty Start Date End Date Caitlyn Bowie MD [address] [address] PCP - General Internal Medicine 05/06/21 documented as of this encounter
--- OUTSIDE RECORDS SUMMARY | 2025-05-21 17:02 | XMS_ITS | Encounter Summary ---
Author Organization [facility] and [facility] Address [address] [place] [address] Care Team Providers Care Bread Stacker Name Role Phone Caitlyn Bowie MD Primary Care Provider +1- [phone] Encounter Details Date Type Department Care Team (Late st Contact Info) Description 07/27/2016 Scanned Document Thoracic Oncology Program at [facility] [address] [address] Suzy Kong MD [address] [place] [address] Social History Tobacco Use Types [...] as of this encounter Care Teams Bread Stacker Relationship Specialty Start Date End Date Caitlyn Bowie MD [address] [address] PCP - General Internal Medicine 05/06/21 Henry Kelly MD Pulmonary Department [address] [place] [address], [address] [place] [address] Physician Pulmonary Disease 09/06/17 06/22/20 documented as of this encounter
--- OUTSIDE RECORDS SUMMARY | 2025-05-21 17:02 | XMS_ITS | Encounter Summary ---
Author Organization [facility] and [facility] Address [address] [place] [address] Care Team Providers Care Superintendent Meter Tests Name Role Phone Caitlyn Bowie MD Primary Care Provider +1- [phone] Encounter Details Date Type Department Care Team (Late st Contact Info) Description 12/14/2016 Scanned Document [facility] Health Information Management [address] [place] [phone] External, Provider Social History Tobacco Use Types [...] MD 3400 [facility] [address] [place] [address] PCP - General Internal Medicine 05/06/21 Henry Kelly MD Pulmonary Department 175 [facility], [address] [place] [address] Physician Pulmonary Disease 09/06/17 06/22/20 documented as of this encounter
--- OUTSIDE RECORDS SUMMARY | 2025-05-21 17:02 | XMS_ITS | Clinical Summary ---
Author Organization [facility] Address [address] [place] [address] Phone Care Team Providers Care Rib Cloth Knitter Name Role Phone Caitlyn Bowie MD [...] (12/25/2021 4:22 PM EDT): Followed closely by banking teacher-Dr. Ronald Mills at [facility] hematology- advised to continue Coumadin anticoagulation at [...] (09/09/2021 10:42 PM EST): Followed closely by banking teacher-Dr. Ronald Mills at [facility] hematology- last seen on 08/05/2021 and advised [...] anticoagulation clinic to keep INR at 1.5-2.0. USP current use of systemic steroids 09/09 Assessment & Plan (12/10/2021 10:38 AM EDT): Carefully continue alternating low dosing as prescribed by her town manager and consider gentle taper when ready. [...] alternating low dosing as prescribed by her town manager and consider gentle taper when ready. [...] 11:40 AM EST Office Visit [facility] [address] [place] [address] [place] [address] Anna Ellis MD [address] [place] [address] [address] [facility] [place] [address] [email or web address] Health Maintenance Due Date Last Done Comments [...] patient's age to complete this topic IPV VACCINES Aged Out No longer eligi ble [...] LAB BLOOD BKR ORDERABL ES Final Result [facility] [address] [place] [address] from Last 3 Months or Most Recently Relevant to Health Maintenance Insurance MEDICARE PART A & B [facility] MEDEX SUPPLEMENT HEALTH SAFETY [place] MEDICARE PART A & B [facility] MEDEX SUPPLEMENT HEALTH SAFET[facility] & B [facility] MEDEX SUPPLEMENT HEALTH SAFETY NET [facility] PART A & B [facility] MEDEX SUPPLEMENT HEALTH SAFETY [facility]IC[facility] PART A & B [facility] MEDEX SUPPLEMENT HEALTH SAFETY [facility] MEDICARE PART A & B [facility] MEDEX SUPPLEMENT [facility] SAFETY [facility]IC[facility] PART A & B [facility] MEDEX SUPPLEMENT [facility]ICARE PART A & B [facility] MEDEX SUPPLEMENT HEALTH SAFETY [facility] MEDICARE PART A & B [facility] MEDEX SUPPLEMENT HEALTH SAFETY NET [facility] Care Teams Rib Cloth Knitter Relationship Specialty Start Date End Date Caitlyn Bowie MD PCP - General Internal Medicine 09/09/21 Additional Source Comments The information contained in this document represents components of the legal health record. It is not the complete legal health record.Loc[facility]
== END 2025-05-21 13:51 | disposition home or self-care (01) ==
LOC: HO.US 13:50
PROVIDERS: PCP Internal Medicine
DX: R60.0 Localized edema (principal); M79.605 Pain in left leg; M79.89 Other specified soft tissue disorders
CPT/HCPCS: 93926

== ENCOUNTER → 2025-05-21 13:52 | Outpatient (BNV) | payer MEDICARE, SELFPAY | PROVIDERS: PCP Internal Medicine; Visit Provider Specialist | DX: M79.89 Other specified soft tissue disorders (principal) | CPT/HCPCS: 93926 ==

== ENCOUNTER 2025-05-22 10:17 | Outpatient (REF) | payer MEDICARE, SELFPAY ==
--- NOTE | ~2025-05-22 | CT_ITS ---
EXAMINATION: CT ANGIOGRAM CHEST CLINICAL INFORMATION: R07.81 - Pleurodynia According to the EMR: History of lung cancer, status post left lower lobectomy at [facility] in 2008. COMPARISON: Chest CT on September 09, 2024. Chest radiograph on May 18, 2025. Abdomen/pelvis CT on April 24, 2025. TECHNIQUE: Multiple axial images were obtained through the chest after the administration of 65 ml of Omnipaque 350 intravenous contrast. Extensive vascular post-processing including two-dimensional and three-dimensional reformatted images were created and reviewed on an independent workstation. This CT examination was performed using dose optimization techniques as appropriate, variously including the following: *Automated exposure control *Adjustment of mA and/or kV according to patient size (this includes techniques or standardized protocols for targeted exams where dose is matched to indication/reason for exam; i.e. extremities or head) *Use of iterative reconstruction technique FINDINGS: Pulmonary angiogram: Technical quality: Adequate opacification of the pulmonary arteries. No filling defects to suggest pulmonary embolism. Pulmonary trunk measures 3.0 cm, top normal. Lungs: Left lower lobectomy changes. Chronic linear fibrotic changes in the left lung. Patchy airspace opacity in the anterolateral aspect of the right lower lobe correlates to the abnormal findings described on the recent chest radiograph. Linear fibrotic changes in the posterior aspect of the right lung base. Pleura: Chronic [id number] left pleural effusion, mildly increased from September 2024, but mildly decreased from April 2025. Left pleural thickening and focal calcification posteriorly (6:50/148) are probably similar. No right pleural effusion. No pneumothorax. Mediastinum: No thyroid nodules. Similar moderate cardiomegaly. Small pericardial effusion, mildly increased from April 2025. Lymph nodes: No bulky adenopathy. Upper abdomen: Hypodense left renal lesions measuring 1.6 cm (6:129/148) and 1.0 cm (6:141/148) are similar to April 2025 and may represent cysts. Bones: No acute findings. Chronic compression deformity of T5 vertebral body. CT/CT angio chest PE protocol IMPRESSION: 1. No evidence of pulmonary embolism. 2. Focal air space disease in the anterolateral aspect of the right upper lobe. 3. Chronic changes of left lower lobectomy. 4. Chronic small to moderate left pleural effusion, mildly decreased from April 2025. 5. Small pericardial effusion, mildly increased from April 2025. Electronically signed by: Uyen Rodriguez MD 05/22/2025 12:01 PM [facility]
[2025-05-22] MEDS: iohexoL 350 MG/ML 100 ML INFUS..BTL 65 ML IV (11:13)
--- OUTSIDE RECORDS SUMMARY | 2025-05-22 12:23 | XMS_ITS | Encounter Summary ---
Author Organization [facility] Address [address] [place] [address] Care Team Providers Care Grease Maker Head Name Role Phone Caitlyn Bowie MD Primary Care Provider +1- [phone] Encounter Details Date Type Department Care Team ([facility] st Contact Info) Description 09/15/2020 Scanned Document [facility] Health Information Management [address] [place] [address] External, Provider Social History Tobacco Use Types [...] documented as of this encounter Care Teams Grease Maker Head Relationship Specialty Start Date End Date Caitlyn Bowie MD [address] [address] PCP - General Internal Medicine 05/06/21 documented as of this encounter
--- OUTSIDE RECORDS SUMMARY | 2025-05-22 12:23 | XMS_ITS | Encounter Summary ---
Author Organization [facility] Address [address] [place] [address] Care Team Providers Care Residential Framing Carpenter Name Role Phone Caitlyn Bowie MD Primary Care Provider +1- [phone] Encounter Details Date Type Department Care Team ([facility] st Contact Info) Description 02/02/2017 Scanned Document [facility] Health Information Management [address] [place] [address] External, Provider Social History Tobacco Use Types [...] as of this encounter Care Teams Residential Framing Carpenter Relationship Specialty Start Date End Date Caitlyn Bowie MD [address] [phone] PCP - General Internal Medicine 05/06/21 Henry Kelly MD Pulmonary Department 175 [facility], [address] [place] [address] Physician Pulmonary Disease 09/06/17 06/22/20 documented as of this encounter
--- OUTSIDE RECORDS SUMMARY | 2025-05-22 12:23 | XMS_ITS | Encounter Summary ---
Author Organization [facility] Address [address] [place] [address] Care Team Providers Care Sample Stitcher Name Role Phone Caitlyn Bowie MD Primary Care Provider +1- [phone] Encounter Details Date Type Department Care Team ([facility] st Contact Info) Description 09/16/2020 Scanned Document [facility] Health Information Management [address] [place] [address] External, Provider Social History Tobacco Use Types [...] as of this encounter Care Teams Sample Stitcher Relationship Specialty Start Date End Date Caitlyn Bowie MD [address] [address] PCP - General Internal Medicine 05/06/21 documented as of this encounter
--- OUTSIDE RECORDS SUMMARY | 2025-05-22 12:23 | XMS_ITS | Encounter Summary ---
Author Organization [facility] and [facility] Address [address] [place] [address] Care Team Providers Care Saturator Name Role Phone Caitlyn Bowie MD Primary Care Provider +1- [phone] Encounter Details Date Type Department Care Team (Late st Contact Info) Description 09/15/2020 Scanned Document INTERFACE DEFAULT [address] [place] [address] System, Provider Not In Social History Tobacco [...] End Date Caitlyn Bowie MD [address] [address] PCP - General Internal Medicine 05/06/21 documented as of this encounter
--- OUTSIDE RECORDS SUMMARY | 2025-05-22 12:23 | XMS_ITS | Patient Health Record ---
Author Organization [facility] Address [address] [place] [address] Care Team Providers Care Balance Recesser Name Role Phone Shruti Bowieberly Primary Care Provider Cristian Fountain Unavailable [phone] Allergies Allergen (clinical drug ingredient) Drug/Non Drug [...] Status W/U Status Risk Notes Problem Diverticulitis (29598642) Diverticulitis (K57.92) Active confirmed Problem Irritable bowel syndrome characterized by constipation (343237386) Irritable bowel syndrome with constipation (K58.9) Active confirmed Problem Gastroesophageal reflux disease (664173300) GERD (gastroesophageal reflux disease) (K21.9) Active confirmed Plan Of Treatment No Information Insurance Providers Payer Name Payer Address Payer Phone Subscriber Number Group Number Insured Name Patient Relationship to Insured Coverage Start Date Coverage End Date MEDICARE OF [place] [address] [place] [address] [id number] DANIEL WATSONE Self - patient is the insured [employer] ATTN CLAIMS [address] [place] [address] [id number] DANIEL WATSONE Self - patient is the insured Medical (General) History Medical History History ICD Code LA-04/2021-sees Dr. 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 Gomes Pneumomias Hypothyroidism Surgical History Surgery Date(Month/Year) Tonsils and adenoids BOLA Lung cancer-Left lower lobectomy at [facility], XRT, Chemo 2008
--- OUTSIDE RECORDS SUMMARY | 2025-05-22 12:23 | XMS_ITS | Encounter Summary ---
Author Organization [facility] and [facility] Address [address] [place] [address] Care Team Providers Care Energy Advisor Name Role Phone Caitlyn Bowie MD Primary Care Provider +1- [phone] Encounter Details Date Type Department Care Team (Late st Contact Info) Description 02/20/2017 Scanned Document [facility] Health Information Management [address] [place] [address] External, Provider Social History Tobacco Use Types [...] as of this encounter Care Teams Energy Advisor Relationship Specialty Start Date End Date Caitlyn Bowie MD 3400 [facility] 1 [place] [address] PCP - General Internal Medicine 05/06/21 Henry Kelly MD Pulmonary Department 175 [facility], [address] [place] [address] Physician Pulmonary Disease 09/06/17 06/22/20 documented as of this encounter
--- OUTSIDE RECORDS SUMMARY | 2025-05-22 12:23 | XMS_ITS | Encounter Summary ---
Author Organization [facility] and [facility] Address [address] [place] [address] Care Team Providers Care Production Control Coordinating Clerk Name Role Phone Caitlyn Bowie MD Primary Care Provider +1- [phone] Encounter Details Date Type Department Care Team ([facility] st Contact Info) Description 07/08/2020 Scanned Document [facility] Health Information Management [address] [place] [address] External, Provider Social History Tobacco Use Types [...] of this encounter Care Teams Production Control Coordinating Clerk Relationship Specialty Start Date End Date Caitlyn Bowie MD [address] [address] PCP - General Internal Medicine 05/06/21 documented as of this encounter
--- OUTSIDE RECORDS SUMMARY | 2025-05-22 12:23 | XMS_ITS | Encounter Summary ---
Author Organization [facility] and [facility] Address [address] [place] [address] Care Team Providers Care Donation Worker Name Role Phone Caitlyn Bowie MD Primary Care Provider +1- [phone] Encounter Details Date Type Department Care Team ([facility] st Contact Info) Description 09/17/2020 Scanned Document [facility] Health Information Management [address] [place] [address] External, Provider Social History Tobacco Use Types [...] documented as of this encounter Care Teams Donation Worker Relationship Specialty Start Date End Date Caitlyn Bowie MD [facility] [address] [address] PCP - General Internal Medicine 05/06/21 documented as of this encounter
--- OUTSIDE RECORDS SUMMARY | 2025-05-22 12:23 | XMS_ITS | Encounter Summary ---
Author Organization [facility] and [facility] Address [address] [place] [address] Care Team Providers Care Car Audio Installer Name Role Phone Caitlyn Bowie MD Primary Care Provider +1- [phone] Encounter Details Date Type Department Care Team (Late st Contact Info) Description 02/20/2017 Scanned Document [facility] Health Information Management [address] [place] [address] External, Provider Social History Tobacco Use Types [...] as of this encounter Care Teams Car Audio Installer Relationship Specialty Start Date End Date Caitlyn Bowie MD 3400 [facility] 1 [place] [address] PCP - General Internal Medicine 05/06/21 Henry Kelly MD Pulmonary Department 175 [facility], [address] [place] [address] Physician Pulmonary Disease 09/06/17 06/22/20 documented as of this encounter
--- OUTSIDE RECORDS SUMMARY | 2025-05-22 12:23 | XMS_ITS | Encounter Summary ---
Author Organization [facility] and [facility] Address [address] [place] [address] Care Team Providers Care Foam Rubber Curer Name Role Phone Caitlyn Bowie MD Primary Care Provider +1- [phone] Encounter Details Date Type Department Care Team (Late st Contact Info) Description 09/15/2020 Scanned Document [facility] at [address] [address] External, Provider Social History Tobacco Use Types [...] as of this encounter Care Teams Foam Rubber Curer Relationship Specialty Start Date End Date Caitlyn Bowie MD [address] [address] PCP - General Internal Medicine 05/06/21 documented as of this encounter
--- OUTSIDE RECORDS SUMMARY | 2025-05-22 12:23 | XMS_ITS | Encounter Summary ---
Author Organization [facility] and [facility] Address [address] [place] [address] Care Team Providers Care Industrial Gas Servicer Name Role Phone Caitlyn Bowie MD Primary Care Provider +1- [phone] Encounter Details Date Type Department Care Team ([facility] st Contact Info) Description 09/16/2020 Scanned Document [facility] Health Information Management [address] [place] [address] External, Provider Social History Tobacco Use Types [...] as of this encounter Care Teams Industrial Gas Servicer Relationship Specialty Start Date End Date Caitlyn Bowie MD [address] [address] PCP - General Internal Medicine 05/06/21 documented as of this encounter
--- OUTSIDE RECORDS SUMMARY | 2025-05-22 12:23 | XMS_ITS | Encounter Summary ---
Author Organization [facility] and [place] [facility] Address [address] [place] [address] Care Team Providers Care Picker / Packer Name Role Phone Caitlyn Bowie MD Primary Care Provider +1- [phone] Encounter Details Date Type Department Care Team (Late st Contact Info) Description 04/18/2025 Telephone [facility] [address] [place] [address] Ronald Mills MD [address] [address] Social History Tobacco Use Types [...] as of this encounter Care Teams Picker / Packer Relationship Specialty Start Date End Date Caitlyn Bowie MD [address] [address] PCP - General Internal Medicine 05/06/21 documented as of this encounter
--- OUTSIDE RECORDS SUMMARY | 2025-05-22 12:23 | XMS_ITS | Encounter Summary ---
Author Organization [facility] and [facility] Address [address] [place] [address] Care Team Providers Care News Reporter Name Role Phone Caitlyn Bowie MD Primary Care Provider +1- [phone] Encounter Details Date Type Department Care Team (Late st Contact Info) Description 05/19/2020 Scanned Document [facility] at [address] [address] External, Provider Social History Tobacco Use Types [...] as of this encounter Care Teams News Reporter Relationship Specialty Start Date End Date Caitlyn Bowie MD 3400 [facility] 1 [place] [address] PCP - General Internal Medicine 05/06/21 Henry Kelly MD Pulmonary Department 175 [facility], [address] [place] [address] Physician Pulmonary Disease 09/06/17 06/22/20 documented as of this encounter
--- OUTSIDE RECORDS SUMMARY | 2025-05-22 12:23 | XMS_ITS | Encounter Summary ---
Author Organization [facility] Address [address] [place] [address] Care Team Providers Care Furniture Removalist'S Assistant Name Role Phone Caitlyn Bowie MD Primary Care Provider +1- [phone] Encounter Details Date Type Department Care Team ([facility] st Contact Info) Description 09/18/2020 Scanned Document [facility] Health Information Management [address] [place] [address] External, Provider Social History Tobacco Use Types [...] as of this encounter Care Teams Furniture Removalist'S Assistant Relationship Specialty Start Date End Date Caitlyn Bowie MD [address] [address] PCP - General Internal Medicine 05/06/21 documented as of this encounter
--- OUTSIDE RECORDS SUMMARY | 2025-05-22 12:23 | XMS_ITS | Encounter Summary ---
Author Organization [facility] and [facility] Address [address] [place] [address] Care Team Providers Care Computer Analyst Supervisor Name Role Phone Caitlyn Bowie MD Primary Care Provider +1- [phone] Encounter Details Date Type Department Care Team (Late st Contact Info) Description 05/14/2020 Documentation [facility] [address] [address] Taya Nuno RN Social History Tobacco Use [...] as of this encounter Care Teams Computer Analyst Supervisor Relationship Specialty Start Date End Date Caitlyn Bowie MD [address] [address] PCP - General Internal Medicine 05/06/21 Henry Kelly MD Pulmonary Department [address] [place] [address], [address] [place] [address] Physician Pulmonary Disease 09/06/17 06/22/20 documented as of this encounter
--- OUTSIDE RECORDS SUMMARY | 2025-05-22 12:24 | XMS_ITS | Encounter Summary ---
Author Organization [facility] Address [address] [place] [address] Care Team Providers Care Merchandising Specialist Name Role Phone Caitlyn Bowie MD Primary Care Provider +1- [phone] Encounter Details Date Type Department Care Team (Late st Contact Info) Description 12/16/2016 Scanned Document [facility] Health Information Management [address] [place] [address] External, Provider Social History Tobacco Use Types [...] 3400 [facility] 1 [place] [address] PCP - General Internal Medicine 05/06/21 Henry Kelly MD Pulmonary Department 175 [facility], [address] [place] [address] Physician Pulmonary Disease 09/06/17 06/22/20 documented as of this encounter
--- OUTSIDE RECORDS SUMMARY | 2025-05-22 12:24 | XMS_ITS | Encounter Summary ---
Author Organization [facility] and [facility] Address [address] [place] [address] Care Team Providers Care Mash Filter Press Operator Name Role Phone Caitlyn Bowie MD Primary Care Provider +1- [phone] Encounter Details Date Type Department Care Team (Late st Contact Info) Description 06/27/2019 Scanned Document [facility] at [address] [place] [address] Norma Renee MD [address] [place] [address] 2 [place] [phone] Social History Tobacco Use Types Packs/Day Years [...] documented as of this encounter Care Teams Mash Filter Press Operator Relationship Specialty Start Date End Date Caitlyn Bowie MD 3400 [facility] 1 [place] [address] PCP - General Internal Medicine 05/06/21 Henry Kelly MD Pulmonary Department 175 [facility], [address] [place] [address] Physician Pulmonary Disease 09/06/17 06/22/20 documented as of this encounter
--- OUTSIDE RECORDS SUMMARY | 2025-05-22 12:24 | XMS_ITS | Encounter Summary ---
Author Organization [facility] Address [address] [place] [address] Care Team Providers Care Leather Scraper Name Role Phone Caitlyn Bowie MD Primary Care Provider +1- [phone] Encounter Details Date Type Department Care Team ([facility] st Contact Info) Description 07/26/2012 Abstract [facility] Health Information Management [address] [place] [address] [place], Primary Care [address] [place] [address] Social History Tobacco Use Types Packs/Day Years [...] as of this encounter Care Teams Leather Scraper Relationship Specialty Start Date End Date Caitlyn Bowie MD 3400 [facility] 1 [place] [address] PCP - General Internal Medicine 05/06/21 Henry Kelly MD Pulmonary Department [address] [place] [address], [address] [place] [address] Physician Pulmonary Disease 09/06/17 06/22/20 documented as of this encounter
--- OUTSIDE RECORDS SUMMARY | 2025-05-22 12:24 | XMS_ITS | Encounter Summary ---
Author Organization [facility] and [facility] Address [address] [place] [address] Care Team Providers Care Career Law Clerk Name Role Phone Caitlyn Bowie MD Primary Care Provider +1- [phone] Encounter Details Date Type Department Care Team (Late st Contact Info) Description 08/29/2019 Scanned Document [facility] at [address] [address] External, Provider Social History Tobacco Use Types [...] as of this encounter Care Teams Career Law Clerk Relationship Specialty Start Date End Date Caitlyn Bowie MD 3400 [facility] 1 [place] [address] PCP - General Internal Medicine 05/06/21 Henry Kelly MD Pulmonary Department 175 [facility], [address] [place] [address] Physician Pulmonary Disease 09/06/17 06/22/20 documented as of this encounter
--- OUTSIDE RECORDS SUMMARY | 2025-05-22 12:24 | XMS_ITS | Encounter Summary ---
Author Organization [facility] and [facility] Address [address] [place] [address] Care Team Providers Care Television And Radio Repairer Name Role Phone Caitlyn Bowie MD Primary Care Provider +1- [phone] Encounter Details Date Type Department Care Team (Late st Contact Info) Description 09/09/2020 Scanned Document [facility] Health Information Management [address] [place] [address] External, Provider Social History Tobacco Use Types [...] as of this encounter Care Teams Television And Radio Repairer Relationship Specialty Start Date End Date Caitlyn Bowie MD [address] [address] PCP - General Internal Medicine 05/06/21 documented as of this encounter
--- OUTSIDE RECORDS SUMMARY | 2025-05-22 12:24 | XMS_ITS | Clinical Summary ---
Author Organization [facility] Address [address] [place] [address] Care Team Providers Care Superintendent Production Name Role Phone Brennan Bunrett MD Primary Care Provider [phone] Allergies Active Allergy Reactions Criticality Noted Date [...] age to complete this topic Care Teams Superintendent Production Relationship Specialty Start Date End Date Brennan Burnett MD [address] [place] [address] PCP - General Internal Medicine 07/06/20
--- OUTSIDE RECORDS SUMMARY | 2025-05-22 12:24 | XMS_ITS | Encounter Summary ---
Author Organization [facility] and [place] [facility] Address [address] [place] [address] Care Team Providers Care Trail Construction Worker Name Role Phone Caitlyn Bowie MD Primary Care Provider +1- [phone] Encounter Details Date Type Department Care Team (Late st Contact Info) Description 07/01/2019 Scanned Document [facility] at [address] [place] [address] Norma Renee MD [address] [place] [address] 2 [place] [phone] Social History Tobacco Use Types Packs/Day Years [...] documented as of this encounter Care Teams Trail Construction Worker Relationship Specialty Start Date End Date Caitlyn Bowie MD 3400 [facility] 1 [place] [address] PCP - General Internal Medicine 05/06/21 Henry Kelly MD Pulmonary Department 175 [facility], [address] [place] [address] Physician Pulmonary Disease 09/06/17 06/22/20 documented as of this encounter
--- OUTSIDE RECORDS SUMMARY | 2025-05-22 12:24 | XMS_ITS | Encounter Summary ---
Author Organization [facility] and [facility] Address [address] [place] [address] Care Team Providers Care Appeals Representative Name Role Phone Caitlyn Bowie MD Primary Care Provider +1- [phone] Encounter Details Date Type Department Care Team (Late st Contact Info) Description 09/07/2020 Scanned Document [facility]ovascular Medicine at 175 [facility] 175 [facility] THIRD FLO[place], [place] [address] Norma Renee MD [address] [place] [phone] Social History Tobacco Use Types Packs/Day Years [...] End Date Caitlyn Bowie MD [address] [address] PCP - General Internal Medicine 05/06/21 documented as of this encounter
--- OUTSIDE RECORDS SUMMARY | 2025-05-22 12:24 | XMS_ITS | Encounter Summary ---
Author Organization [facility] Address [address] [place] [address] Care Team Providers Care Glass Driller Name Role Phone Caitlyn Bowie MD Primary Care Provider +1- [phone] Encounter Details Date Type Department Care Team ([facility] st Contact Info) Description 04/27/2017 Scanned Document [facility] Health Information Management [address] [place] [address] External, Provider Social History Tobacco Use Types [...] as of this encounter Care Teams Glass Driller Relationship Specialty Start Date End Date Caitlyn Bowie MD [address] [address] PCP - General Internal Medicine 05/06/21 Henry Kelly MD Pulmonary Department 175 [facility], [address] [place] [address] Physician Pulmonary Disease 09/06/17 06/22/20 documented as of this encounter
--- OUTSIDE RECORDS SUMMARY | 2025-05-22 12:24 | XMS_ITS | Encounter Summary ---
Author Organization [facility] and [facility] Address [address] [place] [address] Care Team Providers Care Supervisor Underwriting Clerks Name Role Phone Caitlyn Bowie MD Primary Care Provider +1- [phone] Encounter Details Date Type Department Care Team (Late st Contact Info) Description 07/12/2019 Scanned Document [facility] at [address] [place] [address] Norma Renee MD [address] [place] [address] 2 [place] [phone] Social History Tobacco Use Types Packs/Day Years [...] as of this encounter Care Teams Supervisor Underwriting Clerks Relationship Specialty Start Date End Date Caitlyn Bowie MD 3400 [facility] 1 [place] [address] PCP - General Internal Medicine 05/06/21 Henry Kelly MD Pulmonary Department 175 [facility], [address] [place] [address] Physician Pulmonary Disease 09/06/17 06/22/20 documented as of this encounter
--- OUTSIDE RECORDS SUMMARY | 2025-05-22 12:24 | XMS_ITS | Encounter Summary ---
Author Organization [facility] Address [address] [place] [address] Care Team Providers Care Sugar Cane Planter Machine Operator Name Role Phone Caitlyn Bowie MD Primary Care Provider +1- [phone] Encounter Details Date Type Department Care Team (Late st Contact Info) Description 08/29/2019 Scanned Document [facility] at [address] [address] External, Provider Social History Tobacco Use Types [...] documented as of this encounter Care Teams Sugar Cane Planter Machine Operator Relationship Specialty Start Date End Date Caitlyn Bowie MD 3400 [facility] 1 [place] [address] PCP - General Internal Medicine 05/06/21 Henry Kelly MD Pulmonary Department 175 [facility], [address] [place] [address] Physician Pulmonary Disease 09/06/17 06/22/20 documented as of this encounter
--- OUTSIDE RECORDS SUMMARY | 2025-05-22 12:24 | XMS_ITS | Encounter Summary ---
Author Organization [facility] and [facility] Address [address] [place] [address] Care Team Providers Care Exhauster Name Role Phone Caitlyn Bowie MD Primary Care Provider +1- [phone] Encounter Details Date Type Department Care Team (Late st Contact Info) Description 12/16/2016 Scanned Document [facility] Health Information Management [address] [place] [address] External, Provider Social History Tobacco Use Types [...] documented as of this encounter Care Teams Exhauster Relationship Specialty Start Date End Date Caitlyn Bowie MD 3400 [facility] 1 [place] [address] PCP - General Internal Medicine 05/06/21 Henry Kelly MD Pulmonary Department 175 [facility], [address] [place] [address] Physician Pulmonary Disease 09/06/17 06/22/20 documented as of this encounter
--- OUTSIDE RECORDS SUMMARY | 2025-05-22 12:24 | XMS_ITS | Encounter Summary ---
Author Organization [facility] Address [address] [place] [address] Phone Care Team Providers Care Cooker Loader Name Role Phone Caitlyn Bowie MD Primary Care Provider +1- [phone] Encounter Details Date Type Department Care Team (Late Contact Info) Description 03/24/2025 Documentation Only [facility] [address] [place] [address] Marina Abdi 2150 [place] [address] Social History Tobacco Use Types [...] Visit [facility] [address] [place] [address] Rubén Ashraf MD [address] [place] [address] [place] [address] documented as of this encounter Visit Diagnoses Not on filedocumented in this encounter Care Teams Cooker Loader Relationship Specialty Start Date End Date Caitlyn Bowie MD 3400 [place], [place] PCP - General Internal Medicine 09/24/24 documented as of this encounter
--- OUTSIDE RECORDS SUMMARY | 2025-05-22 12:24 | XMS_ITS | Encounter Summary ---
Author Organization [facility] and [facility] Address [address] [place] [address] Care Team Providers Care Airfreight Operations Agent Name Role Phone Caitlyn Bowie MD Primary Care Provider +1- [phone] Encounter Details Date Type Department Care Team (Late st Contact Info) Description 01/28/2013 Scanned Document Thoracic Oncology Program at [address] [address] Solo Henry MD [address] [place] [address] Social History Tobacco Use Types Packs/Day [...] documented as of this encounter Care Teams Airfreight Operations Agent Relationship Specialty Start Date End Date Caitlyn Bowie MD [address] [address] PCP - General Internal Medicine 05/06/21 Henry Kelly MD Pulmonary Department [address] [place] [address], [address] [place] [address] Physician Pulmonary Disease 09/06/17 06/22/20 documented as of this encounter
--- OUTSIDE RECORDS SUMMARY | 2025-05-22 12:24 | XMS_ITS | Encounter Summary ---
Author Organization [facility] and [facility] Address [address] [place] [address] Care Team Providers Care Vice President Of Talent Acquisition Name Role Phone Caitlyn Bowie MD Primary Care Provider +1- [phone] Encounter Details Date Type Department Care Team (Late st Contact Info) Description 12/19/2016 Scanned Document [facility] Health Information Management [address] [place] [address] External, Provider Social History Tobacco Use Types [...] this encounter Care Teams Vice President Of Talent Acquisition Relationship Specialty Start Date End Date Caitlyn Bowie MD 3400 [facility] 1 [place] [address] PCP - General Internal Medicine 05/06/21 Henry Kelly MD Pulmonary Department [address] [facility], [address] [place] [address] Physician Pulmonary Disease 09/06/17 06/22/20 documented as of this encounter
--- OUTSIDE RECORDS SUMMARY | 2025-05-22 12:24 | XMS_ITS | Encounter Summary ---
Author Organization [facility] and [facility] Address [address] [place] [address] Care Team Providers Care Manager Council Name Role Phone Caitlyn Bowie MD Primary Care Provider +1- [phone] Encounter Details Date Type Department Care Team ([facility] st Contact Info) Description 11/29/2019 Scanned Document [facility] Health Information Management [address] [place] [address] External, Provider Social History Tobacco Use Types [...] as of this encounter Care Teams Manager Council Relationship Specialty Start Date End Date Caitlyn Bowie MD [address] [address] PCP - General Internal Medicine 05/06/21 Henry Kelly MD Pulmonary Department [address] [place] [address], [address] [place] [address] Physician Pulmonary Disease 09/06/17 06/22/20 documented as of this encounter
--- OUTSIDE RECORDS SUMMARY | 2025-05-22 12:24 | XMS_ITS | Encounter Summary ---
Author Organization [facility] Address [address] [place] [address] Phone Care Team Providers Care Leather Stitcher Name Role Phone Caitlyn Bowie MD Primary Care Provider +1- [phone] Encounter Details Date Type Department Care Team (Late Contact Info) Description 12/10/2024 Documentation Only [facility] [address] [place] [address] Marina Abdi [address] [place] [address] Social History Tobacco Use Types [...] [facility] [address] [place] [address] Rubén Ashraf MD [address] [place] [address] [place] [address] documented as of this encounter Visit Diagnoses Not on filedocumented in this encounter Care Teams Leather Stitcher Relationship Specialty Start Date End Date Caitlyn Bowie MD 3400 [place], [place] PCP - General Internal Medicine 09/24/24 documented as of this encounter
--- OUTSIDE RECORDS SUMMARY | 2025-05-22 12:24 | XMS_ITS | Encounter Summary ---
Author Organization [facility] and [facility] Address [address] [place] [address] Care Team Providers Care Poker In Name Role Phone Caitlyn Bowie MD Primary Care Provider +1- [phone] Encounter Details Date Type Department Care Team (Late st Contact Info) Description 12/16/2016 Scanned Document [facility] Health Information Management [address] [place] [address] External, Provider Social History Tobacco Use Types [...] documented as of this encounter Care Teams Poker In Relationship Specialty Start Date End Date Caitlyn Bowie MD 3400 [facility] 1 [place] [address] PCP - General Internal Medicine 05/06/21 Henry Kelly MD Pulmonary Department [address] [place] [address], [address] [place] [address] Physician Pulmonary Disease 09/06/17 06/22/20 documented as of this encounter
--- OUTSIDE RECORDS SUMMARY | 2025-05-22 12:24 | XMS_ITS | Encounter Summary ---
Author Organization [facility] and [facility] Address [address] [place] [address] Care Team Providers Care Emergency Specialist Name Role Phone Caitlyn Bowie MD Primary Care Provider +1- [phone] Encounter Details Date Type Department Care Team (Late st Contact Info) Description 06/21/2012 Abstract [facility] at [address] [address] Mikel Lloyd MD [address] [place] [phone] Social History Tobacco Use Types Packs/Day Years [...] as of this encounter Care Teams Emergency Specialist Relationship Specialty Start Date End Date Caitlyn Bowie MD [address] [address] PCP - General Internal Medicine 05/06/21 Henry Kelly MD Pulmonary Department [address] [facility], [address] [place] [address] Physician Pulmonary Disease 09/06/17 06/22/20 documented as of this encounter
--- OUTSIDE RECORDS SUMMARY | 2025-05-22 12:24 | XMS_ITS | Encounter Summary ---
Author Organization [facility] Address [address] [place] [address] Care Team Providers Care Tube Coater Name Role Phone Caitlyn Bowie MD Primary Care Provider +1- [phone] Encounter Details Date Type Department Care Team (Late st Contact Info) Description 12/16/2016 Scanned Document [facility] Health Information Management [address] [place] [address] External, Provider Social History Tobacco Use Types [...] as of this encounter Care Teams Tube Coater Relationship Specialty Start Date End Date Caitlyn Bowie MD 3400 [facility] 1 [place] [address] PCP - General Internal Medicine 05/06/21 Henry Kelly MD Pulmonary Department [address] [place] [address], [address] [place] [address] Physician Pulmonary Disease 09/06/17 06/22/20 documented as of this encounter
--- OUTSIDE RECORDS SUMMARY | 2025-05-22 12:24 | XMS_ITS | Encounter Summary ---
Author Organization [facility] Address [address] [place] [address] Phone Care Team Providers Care Mfg Assoc Name Role Phone Caitlyn Bowie MD Primary Care Provider +1- [phone] Encounter Details Date Type Department Care Team (Late Contact Info) Description 12/10/2024 Documentation Only [facility] [address] [place] [address] Marina Abdi [address] [place] [address] Social History Tobacco Use Types [...] [facility] [address] [place] [address] Rubén Ashraf MD [address] [place] [address] [place] [address] documented as of this encounter Visit Diagnoses Not on filedocumented in this encounter Care Teams Mfg Assoc Relationship Specialty Start Date End Date Caitlyn Bowie MD 3400 [place], [place] PCP - General Internal Medicine 09/24/24 documented as of this encounter
--- OUTSIDE RECORDS SUMMARY | 2025-05-22 12:24 | XMS_ITS | Encounter Summary ---
Author Organization [facility] and [facility] Address [address] [place] [address] Care Team Providers Care Bowling Floor Desk Clerk Name Role Phone Caitlyn Bowie MD Primary Care Provider +1- [phone] Encounter Details Date Type Department Care Team (Late st Contact Info) Description 11/26/2019 Scanned Document [facility] at [address] [address] External, Provider Social History Tobacco Use Types [...] as of this encounter Care Teams Bowling Floor Desk Clerk Relationship Specialty Start Date End Date Caitlyn Bowie MD 3400 [facility] 1 [place] [address] PCP - General Internal Medicine 05/06/21 Henry Kelly MD Pulmonary Department 175 [facility], [address] [place] [address] Physician Pulmonary Disease 09/06/17 06/22/20 documented as of this encounter
--- OUTSIDE RECORDS SUMMARY | 2025-05-22 12:24 | XMS_ITS | Encounter Summary ---
Author Organization [facility] Address [address] [place] [address] Care Team Providers Care Supervisor Plastics Name Role Phone Caitlyn Bowie MD Primary Care Provider +1- [phone] Encounter Details Date Type Department Care Team ([facility] st Contact Info) Description 08/16/2012 Abstract [facility] Health Information Management [address] [place] [address] [place], Primary Care [address] [place] [address] Social History Tobacco Use Types Packs/Day Years [...] as of this encounter Care Teams Supervisor Plastics Relationship Specialty Start Date End Date Caitlyn Bowie MD 3400 [facility] 1 [place] [address] PCP - General Internal Medicine 05/06/21 Henry Kelly MD Pulmonary Department [address] [place] [address], [address] [place] [address] Physician Pulmonary Disease 09/06/17 06/22/20 documented as of this encounter
--- OUTSIDE RECORDS SUMMARY | 2025-05-22 12:24 | XMS_ITS | Encounter Summary ---
Author Organization [facility] Address [address] [place] [address] Phone Care Team Providers Care Concrete Tester Name Role Phone Caitlyn Bowie MD Primary Care Provider +1- [phone] Encounter Details Date Type Department Care Team (Late Contact Info) Description 12/10/2024 Documentation Only [facility] [address] [place] [address] Marina Abdi 2[address] [place] [address] Social History Tobacco Use [...] [facility] [address] [place] [address] Rubén Ashraf MD [address] [place] [address] [place] [address] documented as of this encounter Visit Diagnoses Not on filedocumented in this encounter Care Teams Concrete Tester Relationship Specialty Start Date End Date Caitlyn Bowie MD 3400 [place], [place] PCP - General Internal Medicine 09/24/24 documented as of this encounter
--- OUTSIDE RECORDS SUMMARY | 2025-05-22 12:24 | XMS_ITS | Encounter Summary ---
Author Organization [facility] and [facility] Address [address] [place] [address] Care Team Providers Care Academic Vice President Name Role Phone Caitlyn Bowie MD Primary Care Provider +1- [phone] Encounter Details Date Type Department Care Team ([facility] st Contact Info) Description 12/16/2016 Scanned Document [facility] Health Information Management [address] [place] [address] External, Provider Social History Tobacco Use Types [...] as of this encounter Care Teams Academic Vice President Relationship Specialty Start Date End Date Caitlyn Bowie MD [address] [address] PCP - General Internal Medicine 05/06/21 Henry Kelly MD Pulmonary Department 175 [facility], [address] [place] [address] Physician Pulmonary Disease 09/06/17 06/22/20 documented as of this encounter
--- OUTSIDE RECORDS SUMMARY | 2025-05-22 12:24 | XMS_ITS | Encounter Summary ---
Author Organization [facility] Address [address] [place] [address] Care Team Providers Care Scrap Hooker Name Role Phone Caitlyn Bowie MD Primary Care Provider +1- [phone] Encounter Details Date Type Department Care Team (Late st Contact Info) Description 12/03/2019 Scanned Document [facility] Health Information Management [address] [place] [phone] External, Provider Social History Tobacco Use Types [...] as of this encounter Care Teams Scrap Hooker Relationship Specialty Start Date End Date Caitlyn Bowie MD [address] [address] PCP - General Internal Medicine 05/06/21 Henry Kelly MD Pulmonary Department [address] [place] [address], [address] [place] [address] Physician Pulmonary Disease 09/06/17 06/22/20 documented as of this encounter
--- OUTSIDE RECORDS SUMMARY | 2025-05-22 12:24 | XMS_ITS | Encounter Summary ---
Author Organization [facility] Address [address] [place] [address] Phone Care Team Providers Care Cell Stripper Final Name Role Phone Caitlyn Bowie MD Primary Care Provider +1- [phone] Encounter Details Date Type Department Care Team (Late Contact Info) Description 12/10/2024 Documentation Only [facility] [address] [place] [address] Marina Abdi [address] [place] [address] Social History Tobacco Use Types [...] [facility] [address] [place] [address] Rubén Ashraf MD [address] [place] [address] [place] [address] documented as of this encounter Visit Diagnoses Not on filedocumented in this encounter Care Teams Cell Stripper Final Relationship Specialty Start Date End Date Caitlyn Bowie MD [address] [place], [place] PCP - General Internal Medicine 09/24/24 documented as of this encounter
--- OUTSIDE RECORDS SUMMARY | 2025-05-22 12:24 | XMS_ITS | Encounter Summary ---
Author Organization [facility] Address [address] [place] [address] Phone Care Team Providers Care Returned Goods Repairer Name Role Phone Caitlyn Bowie MD Primary Care Provider +1- [phone] Encounter Details Date Type Department Care Team (Late Contact Info) Description 12/10/2024 Documentation Only [facility] [address] [place] [address] Marina Abdi 2[address] [place] [address] Social History Tobacco Use Types [...] [facility] [address] [place] [address] Rubén Ashraf MD [address] [place] [address] [place] [address] documented as of this encounter Visit Diagnoses Not on filedocumented in this encounter Care Teams Returned Goods Repairer Relationship Specialty Start Date End Date Caitlyn Bowie MD 3400 [place], [place] PCP - General Internal Medicine 09/24/24 documented as of this encounter
--- OUTSIDE RECORDS SUMMARY | 2025-05-22 12:24 | XMS_ITS | Encounter Summary ---
Author Organization [facility] and [facility] Address [address] [place] [address] Care Team Providers Care Belt Cleaner Name Role Phone Caitlyn Bowie MD Primary Care Provider +1- [phone] Encounter Details Date Type Department Care Team ([facility] st Contact Info) Description 04/18/2013 Documentation [facility] at [address] [address] Isis Ragland RN Social History Tobacco Use [...] as of this encounter Care Teams Belt Cleaner Relationship Specialty Start Date End Date Caitlyn Bowie MD [address] [address] PCP - General Internal Medicine 05/06/21 Henry Kelly MD Pulmonary Department [address] [place] [address] [address] [place] [address] Physician Pulmonary Disease 09/06/17 06/22/20 documented as of this encounter
--- OUTSIDE RECORDS SUMMARY | 2025-05-22 12:24 | XMS_ITS | Encounter Summary ---
Author Organization [facility] Address [address] [place] [address] Phone Care Team Providers Care Trade Show Coordinator Name Role Phone Caitlyn Bowie MD Primary Care Provider +1- [phone] Encounter Details Date Type Department Care Team (Late Contact Info) Description 12/10/2024 Documentation Only [facility] [address] [place] [address] Marina Abdi 2[address] [place], [...] [facility] [address] [place] [address] Rubén Ashraf MD [address] [place] [address] [place] [address] documented as of this encounter Visit Diagnoses Not on filedocumented in this encounter Care Teams Trade Show Coordinator Relationship Specialty Start Date End Date Caitlyn Bowie MD 3400 [place], [place] PCP - General Internal Medicine 09/24/24 documented as of this encounter
--- OUTSIDE RECORDS SUMMARY | 2025-05-22 12:24 | XMS_ITS | Encounter Summary ---
Author Organization [facility] and [facility] Address [address] [place] [address] Care Team Providers Care Tanbark Peeler Name Role Phone Caitlyn Bowie MD Primary Care Provider +1- [phone] Encounter Details Date Type Department Care Team (Late st Contact Info) Description 06/27/2019 Scanned Document [facility] at [address] [place] [address] Norma Renee MD [address] [place] [address] 2 [place] [phone] Social History Tobacco Use Types Packs/Day Years [...] documented as of this encounter Care Teams Tanbark Peeler Relationship Specialty Start Date End Date Caitlyn Bowie MD 3400 [facility] 1 [place] [address] PCP - General Internal Medicine 05/06/21 Henry Kelly MD Pulmonary Department 175 [facility], [address] [place] [address] Physician Pulmonary Disease 09/06/17 06/22/20 documented as of this encounter
--- OUTSIDE RECORDS SUMMARY | 2025-05-22 12:24 | XMS_ITS | Encounter Summary ---
Author Organization [facility] and [facility] Address [address] [place] [address] Care Team Providers Care Remote Encoding Operations Supervisor Name Role Phone Caitlyn Bowie MD Primary Care Provider +1- [phone] Encounter Details Date Type Department Care Team (Latest Contact Info) Description 04/15/2013 Transcribed Orders [facility] [address] [place] [address] Tian Atwood MD [address] [place] [address] Unspecified hypothyroidism (Primary Dx) Social History [...] PM EDT) Copper, Serum Total SEE BELOW [facility] Comment: Test Result Flag Unit RefValue Copper, S 1.35 mcg/mL 0.75-1.45 04/15/2013 4:31 PM EDT us Tian Atwood MD LAB BLOOD ORDERABLES Final R esult Performing Organization Address City/State/[facility] Co de Phone Number [facility] [address] [place] [address] documented in this encounter Visit Diagnoses Diagnosis Unspecified hypothyroidism- Primary documented in this encounter Additional Health Concerns Infection Onset Date Last Indicated Resolved Time COVID-19 03/05/2022 03/05/2022 03/15/2022 7:18 PM EDT documented as of this encounter Care Teams Remote Encoding Operations Supervisor Relationship Specialty Start Date End Date Caitlyn Bowie MD 3400 [facility] 1 [place] [address] PCP - General Internal Medicine 05/06/21 Henry Kelly MD Pulmonary Department 175 [facility], [address] [place] [address] Physician Pulmonary Disease 09/06/17 06/22/20 documented as of this encounter
--- OUTSIDE RECORDS SUMMARY | 2025-05-22 12:24 | XMS_ITS | Encounter Summary ---
Author Organization [facility] and [facility] Address [address] [place] [address] Care Team Providers Care Deckhand Sponge Boat Name Role Phone Caitlyn Bowie MD Primary Care Provider +1- [phone] Encounter Details Date Type Department Care Team (Late st Contact Info) Description 01/22/2020 Scanned Document [facility] [address] [place] [address] Kerwin Menjivar MD [address] [facility] 3 [place] [address] Social History Tobacco Use Types [...] documented as of this encounter Care Teams Deckhand Sponge Boat Relationship Specialty Start Date End Date Caitlyn Bowie MD [address] [facility] 1 [place] [address] PCP - General Internal Medicine 05/06/21 Henry Kelly MD Pulmonary Department 175 [facility], [address] [place] [address] Physician Pulmonary Disease 09/06/17 06/22/20 documented as of this encounter
--- OUTSIDE RECORDS SUMMARY | 2025-05-22 12:24 | XMS_ITS | Encounter Summary ---
Author Organization [facility] and [facility] Address [address] [place] [address] Care Team Providers Care Mortgage Manager Name Role Phone Caitlyn Bowie MD Primary Care Provider +1- [phone] Encounter Details Date Type Department Care Team (Late st Contact Info) Description 06/27/2019 Scanned Document [facility] at [address] [place] [address] Norma Renee MD [address] [place] [address] 2 [place] [phone] Social History Tobacco Use Types Packs/Day Years [...] as of this encounter Care Teams Mortgage Manager Relationship Specialty Start Date End Date Caitlyn Bowie MD 3400 [facility] 1 [place] [address] PCP - General Internal Medicine 05/06/21 Henry Kelly MD Pulmonary Department 175 [facility], [address] [place] [address] Physician Pulmonary Disease 09/06/17 06/22/20 documented as of this encounter
--- OUTSIDE RECORDS SUMMARY | 2025-05-22 12:24 | XMS_ITS | Encounter Summary ---
Author Organization [facility] Address [address] [place] [address] Care Team Providers Care Machine Guide Base Winder Name Role Phone Caitlyn Bowie MD Primary Care Provider +1- [phone] Encounter Details Date Type Department Care Team (Late st Contact Info) Description 12/16/2016 Scanned Document [facility] Health Information Management [address] [place] [address] External, Provider Social History Tobacco Use Types [...] as of this encounter Care Teams Machine Guide Base Winder Relationship Specialty Start Date End Date Caitlyn Bowie MD [address] [facility] [address] 1 [place] [address] PCP - General Internal Medicine 05/06/21 Henry Kelly MD Pulmonary Department [address] [facility], [address] [place] [address] Physician Pulmonary Disease 09/06/17 06/22/20 documented as of this encounter
--- OUTSIDE RECORDS SUMMARY | 2025-05-22 12:24 | XMS_ITS | Encounter Summary ---
Author Organization [facility] and [facility] Address [address] [place] [address] Care Team Providers Care Angiography Nurse Name Role Phone Caitlyn Bowie MD Primary Care Provider +1- [phone] Encounter Details Date Type Department Care Team (Late st Contact Info) Description 01/28/2013 Scanned Document Thoracic Oncology Program at [address] [address] Solo Henry MD [address] [place] [address] Social History Tobacco Use Types Packs/Day [...] documented as of this encounter Care Teams Angiography Nurse Relationship Specialty Start Date End Date Caitlyn Bowie MD [address] [address] PCP - General Internal Medicine 05/06/21 Henry Kelly MD Pulmonary Department [address] [place] [address], [address] [place] [address] Physician Pulmonary Disease 09/06/17 06/22/20 documented as of this encounter
--- OUTSIDE RECORDS SUMMARY | 2025-05-22 12:24 | XMS_ITS | Encounter Summary ---
Author Organization [facility] and [facility] Address [address] [place] [address] Care Team Providers Care Legal Services Manager Name Role Phone Caitlyn Bowie MD Primary Care Provider +1- [phone] Encounter Details Date Type Department Care Team (Late st Contact Info) Description 12/16/2016 Scanned Document [facility] Health Information Management [address] [place] [address] External, Provider Social History Tobacco Use [...] 3400 [facility] 1 [place] [address] PCP - General Internal Medicine 05/06/21 Henry Kelly MD Pulmonary Department 175 [facility], [address] [place] [address] Physician Pulmonary Disease 09/06/17 06/22/20 documented as of this encounter
--- OUTSIDE RECORDS SUMMARY | 2025-05-22 12:25 | XMS_ITS | Encounter Summary ---
Author Organization [facility] and [facility] Address [address] [place] [address] Care Team Providers Care Retail Cosmetics Sales Counter Manager Name Role Phone Caitlyn Bowie MD Primary Care Provider +1- [phone] Encounter Details Date Type Department Care Team ([facility] st Contact Info) Description 08/21/2017 Scanned Document [facility] Health Information Management [address] [place] [address] External, Provider Social History Tobacco Use Types [...] as of this encounter Care Teams Retail Cosmetics Sales Counter Manager Relationship Specialty Start Date End Date Caitlyn Bowie MD 3400 [facility] 1 [place] [address] PCP - General Internal Medicine 05/06/21 Henry Kelly MD Pulmonary Department 175 [facility], [address] [place] [address] Physician Pulmonary Disease 09/06/17 06/22/20 documented as of this encounter
--- OUTSIDE RECORDS SUMMARY | 2025-05-22 12:25 | XMS_ITS | Encounter Summary ---
Author Organization [facility] and [facility] Address [address] [place] [address] Care Team Providers Care Hatchery Worker Name Role Phone Caitlyn Bowie MD Primary Care Provider +1- [phone] Encounter Details Date Type Department Care Team ([facility] st Contact Info) Description 04/12/2021 Scanned Document INTERFACE DEFAULT [address] [place] [address] System, Provider Not In Social History Tobacco [...] documented as of this encounter Care Teams Hatchery Worker Relationship Specialty Start Date End Date Caitlyn Bowie MD [address] [address] PCP - General Internal Medicine 05/06/21 documented as of this encounter
--- OUTSIDE RECORDS SUMMARY | 2025-05-22 12:25 | XMS_ITS | Encounter Summary ---
Author Organization [facility] Address [address] [place] [address] Care Team Providers Care Tape Recording Machine Operator Name Role Phone Caitlyn Bowie MD Primary Care Provider +1- [phone] Encounter Details Date Type Department Care Team (Late st Contact Info) Description 03/15/2021 Scanned Document INTERFACE DEFAULT [address] [place] [address] System, Provider Not In Social History Tobacco [...] as of this encounter Care Teams Tape Recording Machine Operator Relationship Specialty Start Date End Date Caitlyn Bowie MD [address] [address] PCP - General Internal Medicine 05/06/21 documented as of this encounter
--- OUTSIDE RECORDS SUMMARY | 2025-05-22 12:25 | XMS_ITS | Encounter Summary ---
Author Organization [facility] and [facility] Address [address] [place] [address] Care Team Providers Care Chief Radiologic Technologist Name Role Phone Caitlyn Bowie MD Primary Care Provider +1- [phone] Encounter Details Date Type Department Care Team ([facility] st Contact Info) Description 04/13/2021 Scanned Document INTERFACE DEFAULT [address] [place] [address] System, Provider Not In Social History Tobacco [...] as of this encounter Care Teams Chief Radiologic Technologist Relationship Specialty Start Date End Date Caitlyn Bowie MD [address] [address] PCP - General Internal Medicine 05/06/21 documented as of this encounter
--- OUTSIDE RECORDS SUMMARY | 2025-05-22 12:25 | XMS_ITS | Encounter Summary ---
Author Organization [facility] and [facility] Address [address] [place] [address] Care Team Providers Care Core Checker Name Role Phone Caitlyn Bowie MD Primary Care Provider +1- [phone] Encounter Details Date Type Department Care Team (Late st Contact Info) Description 03/16/2021 Scanned Document INTERFACE DEFAULT [address] [place] [address] System, Provider Not In Social History Tobacco [...] as of this encounter Care Teams Core Checker Relationship Specialty Start Date End Date Caitlyn Bowie MD [address] [address] PCP - General Internal Medicine 05/06/21 documented as of this encounter
--- OUTSIDE RECORDS SUMMARY | 2025-05-22 12:25 | XMS_ITS | Encounter Summary ---
Author Organization [facility] and [facility] Address [address] [place] [address] Care Team Providers Care Metal Hanging Helper Name Role Phone Caitlyn Bowie MD Primary Care Provider +1- [phone] Encounter Details Date Type Department Care Team (Late st Contact Info) Description 04/26/2017 Scanned Document Cardiovascular Medicine at [address] [address] System, Provider Not In Social History Tobacco [...] as of this encounter Care Teams Metal Hanging Helper Relationship Specialty Start Date End Date Caitlyn Bowie MD 3400 [facility] 1 [place] [address] PCP - General Internal Medicine 05/06/21 Henry Kelly MD Pulmonary Department 175 [facility], [address] [place] [address] Physician Pulmonary Disease 09/06/17 06/22/20 documented as of this encounter
--- OUTSIDE RECORDS SUMMARY | 2025-05-22 12:25 | XMS_ITS | Encounter Summary ---
Author Organization [facility] and [facility] Address [address] [place] [address] Care Team Providers Care Manager Statistics Name Role Phone Caitlyn Bowie MD Primary Care Provider +1- [phone] Encounter Details Date Type Department Care Team (Late st Contact Info) Description 03/11/2021 Scanned Document INTERFACE DEFAULT [address] [place] [address] System, Provider Not In Social History Tobacco [...] as of this encounter Care Teams Manager Statistics Relationship Specialty Start Date End Date Caitlyn Bowie MD [address] [address] PCP - General Internal Medicine 05/06/21 documented as of this encounter
--- OUTSIDE RECORDS SUMMARY | 2025-05-22 12:25 | XMS_ITS | Encounter Summary ---
Author Organization [facility] Address [address] [place] [address] Care Team Providers Care Stripping Machine Operator Name Role Phone Caitlyn Bowie MD Primary Care Provider +1- [phone] Encounter Details Date Type Department Care Team (Late st Contact Info) Description 03/24/2021 Scanned Document INTERFACE DEFAULT [address] [place] [address] System, Provider Not In Social History Tobacco [...] documented as of this encounter Care Teams Stripping Machine Operator Relationship Specialty Start Date End Date Caitlyn Bowie MD [address] [address] PCP - General Internal Medicine 05/06/21 documented as of this encounter
--- OUTSIDE RECORDS SUMMARY | 2025-05-22 12:25 | XMS_ITS | Patient Health Record ---
Author Organization [facility] Address [address] [facility] [address] [place] [address] Care Team Providers Care Animal Therapist Name Role Phone EVELIN RAMSAY Primary Care Provider Yenny Hou Unavailable [phone] Allergies Allergen (clinical drug ingredient) Drug/Non Drug [...] Status Risk Notes Problem Postmenopausal atrophic vaginitis (82321039) Postmenopausal atrophic vaginitis (N95.2) Active confirmed Problem Age-related osteoporosis (753731151) Age-related osteoporosis without current pathological fracture (M81.0) Active confirmed Problem Urgent desire to urinate (79916913) Urgency of urination (R39.15) Active confirmed Problem 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 Problem Chronic systolic heart failure (697023885) Chronic systolic (congestive) heart failure (I50.22) Active confirmed Problem Chronic obstructive pulmonary disease (98282411) Chronic obstructive pulmonary disease, unspecified (J44.9) Active confirmed Problem Functional urinary incontinence (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) Functional 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) Active confirmed Problem Personal history of primary malignant neoplasm of bronchus (061605372) 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) Active confirmed Vital Signs Temperature 97.7 degrees Fahrenheit 07/18/2024 Blood pressure diastolic 62 mm Hg 07/18/2024 Height 63 in 07/18/2024 Blood pressure systolic 102 mm Hg 07/18/2024 Weight 126 lbs 07/18/2024 BMI 22.32 kg/m2 07/18/2024 Encounters Encounter Location Date Provider Diagnosis [employer] [facility] [employer] [address] [address] 07/09/2024 Yenny Elizalde Urgency of urination R39.15 ; Acute vaginitis N76.0 and Postmenopausal atrophic vaginitis N95.2 [place] [address] [employer] [address] [address] 07/18/2024 Yenny Elizalde Encounter for screening mammogram for malignant neoplasm of breast Z12.31 and Mastodynia N64.4 [employer] [place] [address] [employer] [address] [address] 06/11/2024 Yenny Elizalde Assessments Encounter Date Diagnosis [...] MEDICARE [address] [place] [id number] SHIRLEY CINDA Self - patient is the insured [employer] [address] [place] [address] [id number] DANIEL WATSONE Self - patient is [...]
--- OUTSIDE RECORDS SUMMARY | 2025-05-22 12:25 | XMS_ITS | Encounter Summary ---
Author Organization [facility] and [facility] Address [address] [place] [address] Care Team Providers Care Director Critical Care Name Role Phone Caitlyn Bowie MD Primary Care Provider +1- [phone] Encounter Details Date Type Department Care Team ([facility] st Contact Info) Description 04/11/2021 Scanned Document INTERFACE DEFAULT [address] [place] [address] System, Provider Not In Social History Tobacco [...] as of this encounter Care Teams Director Critical Care Relationship Specialty Start Date End Date Caitlyn Bowie MD [address] [address] PCP - General Internal Medicine 05/06/21 documented as of this encounter
--- OUTSIDE RECORDS SUMMARY | 2025-05-22 12:25 | XMS_ITS | Encounter Summary ---
Author Organization [facility] Address [address] [place] [address] Care Team Providers Care Washing Machine Installer Name Role Phone Caitlyn Bowie MD Primary Care Provider +1- [phone] Encounter Details Date Type Department Care Team ([facility] st Contact Info) Description 04/22/2021 Scanned Document INTERFACE DEFAULT [address] [place] [address] System, Provider Not In Social History Tobacco [...] End Date Caitlyn Bowie MD [address] [address] PCP - General Internal Medicine 05/06/21 documented as of this encounter
--- OUTSIDE RECORDS SUMMARY | 2025-05-22 12:25 | XMS_ITS | Encounter Summary ---
Author Organization [facility] and [facility] Address [address] [place] [address] Care Team Providers Care Teacher Of The Emotionally Disturbed Name Role Phone Caitlyn Bowie MD Primary Care Provider +1- [phone] Encounter Details Date Type Department Care Team (Late st Contact Info) Description 03/01/2017 Scanned Document [facility] at [address] [place] [address] Norma Renee MD [address] [place] [address] 2 [place] [phone] Social History Tobacco Use Types Packs/Day Years [...] of this encounter Care Teams Teacher Of The Emotionally Disturbed Relationship Specialty Start Date End Date Caitlyn Bowie MD [address] [address] PCP - General Internal Medicine 05/06/21 Henry Kelly MD Pulmonary Department [address] [place] [address], [address] [place] [address] Physician Pulmonary Disease 09/06/17 06/22/20 documented as of this encounter
--- OUTSIDE RECORDS SUMMARY | 2025-05-22 12:25 | XMS_ITS | Encounter Summary ---
Author Organization [facility] and [facility] Address [address] [place] [address] Care Team Providers Care Applications Programmer Analyst Name Role Phone Caitlyn Bowie MD Primary Care Provider +1- [phone] Encounter Details Date Type Department Care Team ([facility] st Contact Info) Description 06/07/2017 Scanned Document [facility] Health Information Management [address] [place] [address] External, Provider Social History Tobacco Use Types [...] as of this encounter Care Teams Applications Programmer Analyst Relationship Specialty Start Date End Date Caitlyn Bowie MD 3400 [facility] 1 [place] [address] PCP - General Internal Medicine 05/06/21 Henry Kelly MD Pulmonary Department [address] [facility], [address] [place] [address] Physician Pulmonary Disease 09/06/17 06/22/20 documented as of this encounter
--- OUTSIDE RECORDS SUMMARY | 2025-05-22 12:25 | XMS_ITS | Encounter Summary ---
Author Organization [facility] and [facility] Address [address] [place] [address] Care Team Providers Care Chicken Fancier Name Role Phone Caitlyn Bowie MD Primary Care Provider +1- [phone] Encounter Details Date Type Department Care Team ([facility] st Contact Info) Description 04/16/2021 Scanned Document INTERFACE DEFAULT [address] [place] [address] System, Provider Not In Social History Tobacco [...] as of this encounter Care Teams Chicken Fancier Relationship Specialty Start Date End Date Caitlyn Bowie MD [address] [address] PCP - General Internal Medicine 05/06/21 documented as of this encounter
--- OUTSIDE RECORDS SUMMARY | 2025-05-22 12:25 | XMS_ITS | Encounter Summary ---
Author Organization [facility] Address [address] [place] [address] Care Team Providers Care Houseman Name Role Phone Caitlyn Bowie MD Primary Care Provider +1- [phone] Encounter Details Date Type Department Care Team ([facility] st Contact Info) Description 04/21/2021 Scanned Document INTERFACE DEFAULT [address] [place] [address] System, Provider Not In Social History Tobacco [...] documented as of this encounter Care Teams Houseman Relationship Specialty Start Date End Date Caitlyn Bowie MD [address] [address] PCP - General Internal Medicine 05/06/21 documented as of this encounter
--- OUTSIDE RECORDS SUMMARY | 2025-05-22 12:25 | XMS_ITS | Clinical Summary ---
Author Organization 175 [facility] Address [address] [place] [address] Phone Care Team Providers Care Level Vial Grinder Name Role Phone Caitlyn Bowie MD Primary Care Provider +1- [phone] Allergies Active Allergy Reactions Criticality Noted Date [...] 20 mg as needed by her previous biomass plant manager which she has taken sporadically. I have asked her to take this daily to see if this improves her symptoms and she has a follow-up appointment with Dr. Shah on September 16 which she will keep. We also had a long conversation regarding the fact that she is seeing 3 different biomass plant manager for the same problems. We informed [...] continues to see Dr. Avalos or her biomass plant manager at [facility]. She verbalized understanding of this and [...] right lower leg 03/06/2019 Antiphospholipid antibody syndrome ([facility] V24) 12/24/2018 Adrenal insufficiency ([facility] V24) 08/23/2018 Allergic rhinitis 08/23/2018 Hyperparathyroidism ([facility] V24) 08/23/2018 MRSA infection 08/23/2018 Overview (05/16/2024): 06/2009, s/p thoracotomy infection Osteoarthritis 08/23/2018 Radiation-induced pulmonary fibrosis ([facility] V2 4) 11/13/2017 Bronchiectasis ([facility] V24, [facility] V28) 2017 Leg edema 08/08/2017 Restrictive lung disease 08/08/2017 Chronic obstructive pulmonar y disease ([facility] V24, [facility] V28) 04/13/2017 Fibromyalgia 04/13/2017 Congestive heart failure ([facility] V24, [facility] V 28) 04/04/2017 Heterozygous factor V Leiden mutation ([facility] V 24) 04/04/2017 Obstructive sleep apnea syndrome 04/04/2017 Overview (05/16/2024): CPAP Pleural effusion 04/04/2017 Pulmonary hypertension ([facility] V24, [facility] V28 ) 04/04/2017 Multiple pulmonary nodules 03/17/2017 [...] Team Description 05/14/2025 9:45 AM EST Treatment [address] [phone] Bruno Moreno M, PT Gait abnormality (Primary Dx); Cerebral lesion 05/12/2025 1:45 PM EST Treatment [address] [phone] Gene Marshall PTA Gait abnormality (Primary Dx); Cerebral lesion 05/12/2025 Telephone [facility] [address] [phone] Ayanna Jaffe MD 04/14/2025 10:00 AM EDT Evaluation [address] [phone] Bruno Moreno, PT Gait abnormality (Primary Dx); Cerebral lesion 04/14/2025 Plan of Care Documentation [address] [phone] 04/11/2025 Telephone Gastroenterology - [address] [place] [phone] Tim Gomes MD 03/20/2025 11:40 AM EDT Office Visit [address] [phone] Ayanna Jaffe MD Optic neuritis (Primary Dx); White matter lesion of central nervous system; Blurry vision 02/24/2025 Telephone Gastroenterology - [address] [phone] Tim Gomes MD 02/23/2025 11:40 AM EDT - 02/23/2025 4:22 PM EDT Emergency [facility] Emergency [address] [place] [phone] Celia Snider DO Diverticulitis (Primary Dx) Discharge Disposition: Home or Self Care 02/21/2025 4:30 PM EDT Office Visit [address] [phone] Shirley Chaidez PA Optic neuritis (Primary Dx) [...] Akathisia 04/15/2013 DX:Akathisia Anxiety 12/07/2016 DX:Anxiety Bronchiectasis ([facility] V24, [facility] V28) 08/08/2017 DX:Bronchiectasis (HCC) Cataract 08/26/2014 DX:Cataract Chronic obstructive pulmonar y disease ([facility] V24, [facility] V28) 04/13/2017 DX:Chronic obstructive pulm onary disease (HCC) 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 DX:Complica cole migraine Congestive heart failure ([facility] V24, [facility] V28) 04/04/2017 DX:Congestive heart failure (HCC) History of deep vein thrombosis 04/04/2017 DX:History of deep vein thrombosis Diverticulitis of sigmoid colon 12/15/2016 DX:Diverticulitis of sigmoid colon Elevated liver enzymes 09/23/2015 DX:Elevat ed liver enzymes Fibromyalgia 04/13/2017 DX:Fibromyalgia Gastroesophageal reflux disease 11/17/2016 DX:Gastroesophageal reflux disease Glaucoma suspect 08/26/2014 DX:Glaucoma dori pect Heterozygous factor V Leiden mutation ([facility] V24) 04/04/2017 DX:Heterozygous factor V [...] syndrome 02/18/2013 DX:Postc oncussion syndrome Pulmonary hypertension ([facility] V24, [facility] V28) 04/04/2017 DX:Pulmonary hypertension (H CC) Restrictive lung disease 08/08/2017 DX:Rest rictive lung disease 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 DX:Zinc deficien cy Obstructive sleep apnea syndrome 04/04/2017 DX:Obstructive sleep apnea syndrome; COMMENT: CPAP Radiation-induced pulmonary fibrosis ([facility] V24) 11/13/2017 DX:Radiation-induced pulmona ry fibrosis (HCC) Adrenal insufficiency ([facility] V24) 08/23/2018 DX:Adrenal insufficiency (HCC) Hyperparathyroidism ([facility] V24) 08/23/2018 DX:Hyperparathyroidism (HCC) Osteoporosis [...] Mx LLL resection, Chemo, RT, Cisplatin, Vinorelbine [phone] Antiphospholipid antibody sy ndrome ([facility] V24) 12/24/2018 DX:Antiphospholipid antibody syndrome [...] Info) Description 05/26/2025 10:30 AM EST Treatment [facility] [address] [phone] Bruno Moreno, PT 175 [place] [address] 05/28/2025 1:30 PM EST Treatment [facility] [address] [phone] Gene Marshall PTA 05/29/2025 3:00 PM EST Office Visit [facility] [address] [phone] Ayanna Jaffe MD 175 [place] [address] 06/02/2025 10:30 AM EST Treatment [address] [phone] Bruno Moreno, PT 175 [place] [address] 06/04/2025 10:15 AM EST Treatment [address] [phone] Bruno Moreno, PT 175 [place] [address] Health Maintenance Due Date Last Done Comments [...] PT PT STG x [address] [facility] on 04/14/2025 General No Bruno Moreno, PT [...] 4/5 L PT LTG [address] [facility] on 04/14/2025 General No Bruno Moreno, PT Note: [x] = goal MET [] = goal NOT MET [] Pt will be able to negotiate one flight of stair reciprocally [] Pt will be able to perform car transfers without UE support [] Pt will improve LOOZYA balance score to 52/26 Procedures Procedure Name [...] central nervous system Blurry vision NEUROMYELITIS OPTICA, [id number] Routine 03/20/2025 12:31 PM EDT Optic neuritis [...] reflex to titer (03/20/2025 12:31 PM EDT) [facility] MOG Antibody, Cell-based IFA Negative Negative 03/25/2025 1:05 AM EDT [facility] Blood Venous blood specimen / Unknown Venipuncture / Unknown 03/20/2025 12:31 PM EDT 03/20/2025 12:31 PM EDT Narrative [facility] - 03/25/2025 1:05 AM EDT Test(s) [id number] Antibody, Cell-based IFA was developed and its performance characteristics determined by [facility]. It has not been cleared or approved by the Food and Drug Administration. Performed at: 01 - [address] [id number] Desk Officer: Melissa Wetzel MD, Phone: [phone] Ayanna Jaffe MD LAB BLOOD ORDERABLES Fin al Result [facility] * Neuromyelitis optica, [id number] (03/20/2025 12:31 PM EDT) [facility] NMO IgG Autoantibodies <1.5 0.0 - 3.0 U/mL 03/24/2025 3:05 PM EDT [facility] Comment: Negative: 0.0 - 3.0 Positive: >3.0 Blood Venous blood specimen / Unknown Venipuncture / Unknown 03/20/2025 12:31 PM EDT 03/20/2025 12:31 PM EDT Narrative [facility] - 03/24/2025 3:05 PM EDT Performed at: 01 - [facility] [id number] Desk Officer: Melissa Wetzel MD, Phone: [phone] Ayanna Jaffe MD LAB BLOOD ORDERABLES Fin [...] pcg LAB [facility] MCHC 31.3(L) 32.0 - 37.0 g/dL LAB HEMETOLOGY METHOD 03/20/2025 [facility] RDW 14.1 11.0 - 15.0 % LAB HEMETOLOGY METHOD 03/20/2025 2:23 PM EDT [facility] Platelets 243 130 - 400 K/mcL LAB HEMETOLOGY METHOD 03/20/2025 2:23 PM [facility] MPV 11.3(H) 7.0 - 11.0 FL LAB HEMETOLOGY METHOD 03/20/2025 2:[facility] NRBC 0.2 <1.0 % LAB HEMETOLOGY METHOD 03/20/2025 2:[facility] NRBC Absolute 0.02 <0.10 K/mcL LAB HEMETOLOGY METHOD 03/20/2025 2:23 PM [facility] Neutrophils Relative 75.9 % LAB HEMETOLOGY METHOD 03/20/2025 2:23 PM [facility] Lymphocytes Relative 8.7 % LAB HEMETOLOGY METHOD 03/20/2025 2:23 PM [facility] Monocytes Relative 12.2 % LAB HEMETOLOGY METHOD 03/20/2025 2:23 PM [facility] Eosinophils Relative 0.7 % LAB HEMETOLOGY METHOD 03/20[facility]2025 [facility] Basophils Relative 0.7 % LAB HEMETOLOGY METHOD 03/20/2025 2:23 PM [facility] Immature Granulocytes Relative 1.8 % LAB HEMETOLOGY METHOD 03/20/2025 2[facility] Neutrophils Absolute 8.36(H) 1.50 [...] al Result [facility] [address] [place] [address], * Sedimentation rate (03/20/2025 12:31 PM EDT) Sed Rate 25 0 - 30 mm/hr LAB HEMETOLOGY METHOD 03/20/2025 2:14 PM EDT [facility] Blood Venous blood specimen / Unknown Venipuncture / Unknown 03/20/2025 12:31 PM EDT 03/20/2025 12:31 PM EDT Ayanna Jaffe MD LAB BLOOD ORDERABLES Fin al Result EMILEE MUKHERJEE ND ([facility] [address] [place] [address], [place] [phone] * ECG-Annotated (02/24/2025) Provider Onbase MD ECG ORDERABLES Final Result * CT Head wo Contrast (02/23/2025 2:53 PM EDT) Anatomical Region Laterality Modality Head and Neck Computed Tomogra phy 02/23/2025 2:57 PM EDT Impressions 02/23/2025 3:01 PM EDT Impression: No acute hemorrhage or intracranial mass effect. No significant change. Telerad PA ([id number]) -------- FINAL REPORT -------- Dictated By: Fawn Levin Dictated Date: 02/23/2025 14:57 ET Assigned Physician: Fawn Levin Reviewed and Electronically Signed By: Fawn Levin Signed Date: 02/23/2025 15:01 ET Workstation ID: [id number] Transcribed By: Self Edit Transcribed Date: 02/23/2025 14:57 ET Narrative 02/23/2025 3:01 PM EDT History: Headache. Comparison: 12/10/24 Technique: Contiguous axial images were obtained at 2.5 mm intervals through the posterior fossa and at 5 mm intervals through the remainder of the brain without intravenous contrast. DLP: 808.85 mGy/cm [place] [employer] VCT Iterative reconstruction technique Findings: Moderate generalized [...] brain without intravenous contrast. DLP: 808.85 mGy/cm [place] [employer] VCT Iterative reconstruction technique Findings: Moderate generalized [...] mass effect. No significant change. Telerad EMELIA ([id number]) -------- FINAL REPORT -------- Dictated By: Fawn Levin Dictated Date: 02/23/2025 14:57 ET Assigned Physician: Fawn Levin Reviewed and Electronically Signed By: Fawn Levin Signed Date: 02/23/2025 15:01 ET Workstation ID: [id number] Transcribed By: Self Edit Transcribed Date: 02/23/2025 [...] appropriate, to exclude this possibility. Telerad PA ([id number]) -------- FINAL REPORT -------- Dictated By: Fawn Levin Dictated Date: 02/23/2025 15:01 ET Assigned Physician: Fawn Levin Reviewed and Electronically Signed By: Fawn Levin Signed Date: 02/23/2025 15:05 ET Workstation ID: [id number] Transcribed By: Self Edit Transcribed Date: 02/23/2025 15:01 ET Narrative 02/23/2025 3:05 PM EDT History: Left lower quadrant abdominal pain. Comparison: 08/23/23 Technique: Helical volumetric imaging of the abdomen and pelvis was performed without intravenous or oral contrast. DLP: 480.07 mGy/cm [place] [employer]todoriapeed VCT Iterative reconstruction technique Findings: Chronic pleural-parenchymal [...] or oral contrast. DLP: 480.07 mGy/cm [place] [employer]oriapeed VCT Iterative reconstruction technique Findings: Chronic pleural-parenchymal [...] appropriate, to exclude this possibility. Telekarla KAPOOR ([id number]) -------- FINAL REPORT -------- Dictated By: Fawn Levin Dictated Date: 02/23/2025 15:01 ET Assigned Physician: Fawn Levin Reviewed and Electronically Signed By: Fawn Levin Signed Date: 02/23/2025 15:05 ET Workstation ID: [id number] Transcribed By: Self Edit Transcribed Date: 02/23/2025 15:01 ET Afsaneh KAPOOR IMG CT PROCEDURES Final Resu lt * Lactate, with reflex (02/23/2025 2:25 PM EDT) LACTIC ACID 1.1 0.4 - 2.0 mmol/L LAB CHEMISTRY METHOD 02/23/2025 3:25 PM EDT [facility] ([facility]) [facility] Blood Venous blood specimen / Unknown Venipuncture / Unknown 02/23/2025 2:25 PM EDT 02/23/2025 2:35 PM EDT Afsaneh KAPOOR LAB BLOOD ORDERABLES Final R esult Performing Organization Address City/[facility]/ZIP Co de Phone Number [facility] [address] [place] [address], [place] [phone] * Blood Culture, Peripheral Draw #2 (02/23/2025 [...] O RDERABLES Final Result Performing Organization Address [facility]/ZIP Co de Phone Number [facility] [address] [place] [address], [place] [phone] * XR Chest 1 View (02/23/2025 2:15 PM EDT) Anatomical Region Laterality Modality Body Radiographic Monserrat ging 02/23/2025 2:33 PM EDT Impressions 02/23/2025 2:37 PM EDT Impression: Stable radiographic appearance of the chest, including volume loss and chronic pleural-parenchymal opacity in the left hemithorax consistent with previously treated lung carcinoma. No acute process identified. Telerad EMLEIA ([id number]) -------- FINAL REPORT -------- Dictated By: Fawn Levin Dictated Date: 02/23/2025 14:33 ET Assigned Physician: Fawn Levin Reviewed and Electronically Signed By: Fawn Levin Signed Date: 02/23/2025 14:37 ET Workstation ID: [id number] Transcribed By: Self Edit Transcribed Date: 02/23/2025 14:33 ET Narrative 02/23/2025 2:37 PM EDT History: Dyspnea. Personal history of lung carcinoma. Comparison: 07/30/23, thoracic CT 09/09/24 [place], [place] Findings: Portable AP upright chest at [...] lung carcinoma. Comparison: 07/30/23, thoracic CT 09/09/24 [place], [place] Findings: Portable AP upright chest at [...] treated lung carcinoma. No acute process identified. OptiWi-fikarla KAPOOR ([id number]) -------- FINAL REPORT -------- Dictated By: Fawn Levin Dictated Date: 02/23/2025 14:33 ET Assigned Physician: Fawn Levin Reviewed and Electronically Signed By: Fawn Levin Signed Date: 02/23/2025 14:37 ET Workstation ID: [id number] Transcribed By: Self Edit Transcribed Date: 02/23/2025 14:33 ET us Afsaneh KAPOOR IMG XR PROCEDURES Final Resu lt * Urinalysis with reflex microscopic and culture (02/23/2025 2:04 PM EDT) Specific [place] Urine 1.006 1.003 - 1.030 LAB URINALYSIS - AUTOMATED METHOD 02/23/2025 2:17 PM EDT [facility] pH, Urine 7.5 5.0 - 8.0 pH LAB URINALYSIS - AUTOMATED METHOD 02/23/2025 2:17 PM [facility] Leukocytes, Urine Negative Negative LAB URINALYSIS - AUTOMATED METHOD 02/23/2025 2:17 PM [facility] Nitrite, Urine Negative Negative LAB URINALYSIS - AUTOMATED METHOD 02/23/2025 2:17 PM T [facility] Protein, Urine Negative <=Trace mg/dL LAB URINALYSIS - AUTOMATED METHOD 02/23/2025 2:17 PM [facility] Glucose, Urine Negative Negative mg/dL LAB URINALYSIS - AUTOMATED METHOD 02/23/2025 2:17 PM [facility] Ketones, Urine Negative Negative mg/dL LAB URINALYSIS - AUTOMATED METHOD 02/23/2025 2:17 PM T [facility] Urobilinogen, Urine 0.2 0.2 - 1.0 mg/dL LAB URINALYSIS - AUTOMATED METHOD 02/23/2025 2:17 PM [facility] Bilirubin, Urine Negative Negative LAB URINALYSIS - AUTOMATED METHOD 02/23/2025 2:17 PM EDT [facility] Blood, Urine Negative Negative LAB URINALYSIS - AUTOMATED METHOD 02/23/2025 2:17 PM [facility] Urine Urine specimen obtained by clean catch procedure / Unknown Non-blood Collection / Unknown 02/23/2025 2:04 PM EDT 02/23/2025 2:05 PM EDT us Afsaneh KAPOOR LAB URINE ORDERABLES Final R esult [facility] [address] [place] [address], [place] [phone] * Martinez urine culture tube (02/23/2025 2:04 PM EDT) [facility] Extra Tube Hold for add-ons. 02/23/2025 4:01 PM EDT [facility] Comment:Auto resulted. Urine Urine specimen obtained by clean catch procedure / Unknown Non-blood Collection / Unknown 02/23/2025 2:04 PM EDT 02/23/2025 2:05 PM EDT Afsaneh KAPOOR LAB URINE ORDERABLES Final R esult Performing Organization Address City/[facility]/ZIP Co de Phone Number [facility] [address] [place] [address], [place] [phone] * Troponin I high sensitivity (02/23/2025 1:15 [...] ORDERABLES Final R esult Performing Organization Address City/[facility]/ZIP Co de Phone Number [facility] [address] [place] [address], [place] [phone] * (ABNORMAL) Prothrombin time with INR (02/23/2025 [...] R esult [facility] [address] [place] [address], [place] [phone] * Type and screen (02/23/2025 1:15 PM [...] Final Result [facility] [address] [place] [address], [place] [phone] * (ABNORMAL) Comprehensive Metabolic Panel (CMP) (02/23/2025 1:15 PM EDT) [facility] Sodium 136 133 - 145 mmol/L LAB CHEMISTRY METHOD 02/23/2025 2:13 PM EDT [facility] Potassium 3.5 3.5 - 5.5 mmol/L LAB CHEMISTRY METHOD 02/23/2025 2:13 PM [facility] Chloride 97 96 - 110 mmol/L LAB CHEMISTRY METHOD 02/23/2025 2:13 PM [facility] CO2 33(H) 21 - 32 mmol/L LAB CHEMISTRY METHOD 02/23/2025 2:13 PM [facility] Anion Gap 6 3 - 11 LAB CHEMISTRY METHOD 02/23/2025 2:13 PM [facility] Glucose 100 70 - 100 mg/dL LAB CHEMISTRY METHOD 02/23/2025 2:13 PM [facility] BUN 23 5 - 25 mg/dL LAB CHEMISTRY METHOD 02/23/2025 2:13 PM [facility] Creatinine 0.83 0.50 - 1.10 mg/dL LAB CHEMISTRY METHOD 02/23/2025 2:13 PM [facility] eGFR 71 >=60 mL/min/1. 73m2 LAB CHEMISTRY METHOD 02/23/2025 2:13 PM [facility] Comment:Calculation based on the Chronic Kidney Disease Epidemiology Collaboration (CKD-EPI) equation refit without adjustment for race. BUN/Creatinine Ratio 27.7 LAB CHEMISTRY METHOD 02/23/2025 2:13 PM [facility] Calcium 10.0 8.5 - 10.5 mg/dL LAB CHEMISTRY METHOD 02/23/2025 2:13 PM [facility] AST (SGOT) 29 10 - 42 unit/L LAB CHEMISTRY METHOD 02/23/2025 2:13 PM [facility] ALT (SGPT) 24 10 - 60 unit/L LAB CHEMISTRY METHOD 02/23/2025 2:13 PM [facility] Alkaline Phosphatase 72 42 - 121 unit/L LAB CHEMISTRY METHOD 02/23/2025 2:13 PM [facility] Total Protein 6.9 6.0 - [...] R esult [facility] [address] [place] [address], * 12-Lead ECG (02/23/2025 1:05 PM EDT) Ventricular Rate ECG 79 BPM GEMUSE Atrial Rate 79 BPM GEMUSE P-R Interval 164 ms GEMUSE QRS Duration 138 ms GEMUSE Q-T Interval 422 ms GEMUSE QTc 483 ms GEMUSE P Wave [place] 68 degrees GEMUSE R [place] -59 degrees GEMUSE T [place] 62 degrees GEMUSE ECG Interpretation Normal sinus [...] Documents on File Type Date Recorded Patient Spa Consultant Expl anation Health Care Decision (hx) 10/18/2013 [...] (hx) 10/04/2013 AD LACEY DIRECTIVE Care Teams Level Vial Grinder Relationship Specialty [place] [address] [place] [address] PCP - General Internal Medicine 12/10/24
--- OUTSIDE RECORDS SUMMARY | 2025-05-22 12:25 | XMS_ITS | Encounter Summary ---
Author Organization [facility] and [facility] Address [address] [place] [phone] Care Team Providers Care Taping Supervisor Name Role Phone Caitlyn Bowie MD Primary Care Provider +1- [phone] Encounter Details Date Type Department Care Team (Late st Contact Info) Description 08/09/2017 Scanned Document Cardiovascular Medicine at [address] [place] [address] System, Provider Not In Social History Tobacco [...] documented as of this encounter Care Teams Taping Supervisor Relationship Specialty Start Date End Date Caitlyn Bowie MD [address] [facility] [address] [place] [address] PCP - General Internal Medicine 05/06/21 Henry Kelly MD Pulmonary Department 175 [facility], [address] [place] [address] Physician Pulmonary Disease 09/06/17 06/22/20 documented as of this encounter
--- OUTSIDE RECORDS SUMMARY | 2025-05-22 12:25 | XMS_ITS | Encounter Summary ---
Author Organization [facility] and [facility] Address [address] [place] [address] Care Team Providers Care Research Computing Specialist Name Role Phone Caitlyn Bowie MD Primary Care Provider +1- [phone] Encounter Details Date Type Department Care Team (Late st Contact Info) Description 04/26/2017 Scanned Document Cardiovascular Medicine at [address] [place], [place] [id number] Norma Renee MD [address] [place] [phone] Social History Tobacco Use Types Packs/Day [...] as of this encounter Care Teams Research Computing Specialist Relationship Specialty Start Date End Date Caitlyn Bowie MD [address] [phone] PCP - General Internal Medicine 05/06/21 Henry Kelly MD Pulmonary Department [address] [place] [address], [address] [place] [address] Physician Pulmonary Disease 09/06/17 06/22/20 documented as of this encounter
--- OUTSIDE RECORDS SUMMARY | 2025-05-22 12:25 | XMS_ITS | Clinical Summary ---
Author Organization [address] Address [address] [place] [address] Phone Care Team Providers Care Traffic Maintenance Supervisor Name Role Phone Caitlyn Bowie MD Primary Care Provider +1- [phone] Allergies Active Allergy Reactions Criticality Noted Date [...] Team Description 05/06/2025 Telephone Hematology Program at [address] [address] Ronald Mills MD Appointment 04/24/2025 Telephone Hematology Program at [address] [address] Ronald Mills MD Triage 04/18/2025 Scanned Document INTERFACE DEFAULT [address] [place] [address] System, Provider Not In 04/18/2025 Telephone Hematology Program at [address] [address] Ronald Mills MD 04/11/2025 Documentation [facility] at [address] [place] [address] Taya Nuno RN 04/11/2025 Orders Only [facility] at [address] [place] [address] Ronald Mills MD VTE (venous thromboembolism) (Primary Dx); Elevated homocysteine; Antiphospholipid antibody syndrome (HC Code); Feeding difficulties, unspecified 04/05/2025 Telephone RESIDENT CAREGIVER [facility] [address] [place] [address] Mary Pan MD Advice Only from Last [...] mmol/L 04/05/2022 1:43 PM EDT [facility] Potassium 4.7 3.3 - 5.3 mmol/L 04/05/2022 1:43 PM EDT [facility] Chloride 100 98 - 107 mmol/L 04/05/2022 1:43 PM EDT [facility] CO2 30 20 - 30 mmol/L 04/05/2022 1:43 PM EDT [facility] Anion Gap 8 7 - 17 04/05/2022 1:43 PM EDT [facility] Glucose 115(H) 70 - 100 mg/dL 04/05/2022 1:43 PM EDT [facility] BUN 16 8 - 23 mg/dL 04/05/2022 1:43 PM EDT [facility] Creatinine 0.89 0.40 - 1.30 mg/dL 04/05/2022 1:43 PM EDT [facility] Calcium 10.5(H) 8.8 - 10.2 mg/dL 04/05/2022 1:43 PM EDT [facility] BUN/Creatinine Ratio 18.0 8.0 - 23.0 03/11 1:43 PM EDT [facility] Total Protein 7.0 6.6 - 8.7 g/dL 04/05/2022 1:43 PM EDT [facility] Albumin 4.2 3.6 - 4.9 g/dL 04/05/2022 1:43 PM T [facility] Total Bilirubin 0.6 <=1.2 mg/dL 04/05/2022 1:43 PM [facility] Alkaline Phosphatase 58 9 - 122 U/L 04/05/2022 1:43 PM [facility] Alanine Aminotransferase (ALT) 19 10 - 35 U/L 04/05/2022 1:43 PM T [facility] Comment:Calcium dobesilate c an cause artificially low ALT results at therapeutic concentrations Aspartate Aminotransferase (AST) 26 10 - 35 U/L 04/05/2022 1:43 PM [facility] Globulin 2.8 2.3 - 3.5 g/dL 04/05/2022 1:43 PM [facility] A/G Ratio 1.5 1.0 - 2.2 04/05/2022 1:43 PM [facility] AST/ALT Ratio 1.4 See Comment 04/05/2022 1:43 PM [facility]PART[facility] Comment: Adult with mild elevations [...] >60 >=60 mL/min/1.7 3m2 04/05/2022 1:43 PM [facility] Comment:Estimated glomerular filtration rate (eGFR) [...] BLOOD ORDERABLES Final Resul t [facility] [address] [place] [address] * Bone Density Result Scan (05/10/2017) Historical Provider IMG SCAN REPORTS Final Resul t * (ABNORMAL) Lipid panel (03/18/2016 2:55 PM EDT) Cholesterol 229(H) 115 - 199 mg/dL 03/18/2016 8:11 PM EDT [facility] HDL 83 >=40 mg/dL 03/18/2016 8:11 PM EDT [facility] Triglycerides 71 30 - 150 mg/dL 03/18/2016 8:11 PM EDT [facility] Chol/HDL Ratio 2.8 <=5 03/18/2016 8:11 PM EDT [facility] Comment:Cholesterol/HDL rati o cannot be calculated. LDL Calculated 132 See Comment mg/dL 03/18/2016 8:11 PM EDT [facility] Comment: <100: Optimal 100-129: Near optimal/above optimal 130-159: Borderline high risk 160-189: High risk >=190: Very high risk Blood specimen (specimen) Venipuncture / Unknown 03/18/2016 2:55 PM EDT 03/18/2016 3:17 PM EDT Narrative [facility] - 03/18/2016 8:11 PM EDT $18.27 us Sangeeta Garces MD LAB BLOOD ORDERABLES Fin al Result [facility] [address] [place] [address], [facility] [phone] * MAMMOGRAPHY REPORT (04/25/2013 6:47 AM EDT) 04/25/2013 6:47 AM EDT us Provider Not In System IMG SCAN REPORTS Final Re sult from Last 3 Months or Most Recently Relevant to Health Maintenance Insurance MEDICARE [facility] MEDICARE [facility] MEDICARE [facility] MEDICARE MEDICARE [facility] Advance Directives * Full ACLS (Latest Code Status on File) Date Activated Date Inactivated Comments 12/15/2018 7:13 PM 12/16/2018 6:09 PM * Full Interventions Date Activated Date Inactivated Comments 03/18/2016 6:34 PM 03/19/2016 6:40 PM Care Teams Traffic Maintenance Supervisor Relationship Specialty Start Date End Date Caitlyn Bowie MD [address] [address] PCP - General Internal Medicine 05/06/21
--- OUTSIDE RECORDS SUMMARY | 2025-05-22 12:25 | XMS_ITS | Encounter Summary ---
Author Organization [facility] Address [address] [place] [address] Care Team Providers Care Solderer Production Line Name Role Phone Caitlyn Bowie MD Primary Care Provider +1- [phone] Encounter Details Date Type Department Care Team (Late st Contact Info) Description 03/22/2021 Scanned Document INTERFACE DEFAULT [address] [place] [address] System, Provider Not In Social History Tobacco [...] documented as of this encounter Care Teams Solderer Production Line Relationship Specialty Start Date End Date Caitlyn Bowie MD [address] [address] PCP - General Internal Medicine 05/06/21 documented as of this encounter
--- OUTSIDE RECORDS SUMMARY | 2025-05-22 12:25 | XMS_ITS | Encounter Summary ---
Author Organization [facility] Address [address] [place] [address] Care Team Providers Care Assembly Machine Offbearer Name Role Phone Caitlyn Bowie MD Primary Care Provider +1- [phone] Encounter Details Date Type Department Care Team ([facility] st Contact Info) Description 04/10/2021 Scanned Document INTERFACE DEFAULT [address] [place] [address] System, Provider Not In Social History Tobacco [...] Start Date End Date Caitlyn Bowie MD [facility] [address] [address] PCP - General Internal Medicine 05/06/21 documented as of this encounter
--- OUTSIDE RECORDS SUMMARY | 2025-05-22 12:25 | XMS_ITS | Encounter Summary ---
Author Organization [facility] and [facility] Address [address] [place] [address] Care Team Providers Care Fire Hazard Inspector Name Role Phone Caitlyn Bowie MD Primary Care Provider +1- [phone] Encounter Details Date Type Department Care Team (Late st Contact Info) Description 03/14/2021 Scanned Document INTERFACE DEFAULT [address] [place] [address] System, Provider Not In Social History Tobacco [...] as of this encounter Care Teams Fire Hazard Inspector Relationship Specialty Start Date End Date Caitlyn Bowie MD [address] [address] PCP - General Internal Medicine 05/06/21 documented as of this encounter
--- OUTSIDE RECORDS SUMMARY | 2025-05-22 12:25 | XMS_ITS | Encounter Summary ---
Author Organization [facility] Address [address] [place] [address] Care Team Providers Care Drying Room Supervisor Name Role Phone Caitlyn Bowie MD Primary Care Provider +1- [phone] Encounter Details Date Type Department Care Team (Late st Contact Info) Description 04/11/2021 Scanned Document [facility] Health Information Management [address] [place] [address] External, Provider Social History Tobacco Use Types [...] as of this encounter Care Teams Drying Room Supervisor Relationship Specialty Start Date End Date Caitlny Bowie MD [address] [address] PCP - General Internal Medicine 05/06/21 documented as of this encounter
--- OUTSIDE RECORDS SUMMARY | 2025-05-22 12:25 | XMS_ITS | Encounter Summary ---
Author Organization [facility] Address [address] [place] [address] Care Team Providers Care Oracle Applications Developer Name Role Phone Caitlyn Bowie MD Primary Care Provider +1- [phone] Encounter Details Date Type Department Care Team (Late st Contact Info) Description 02/21/2017 Scanned Document [facility] Health Information Management [address] [place] [address] External, Provider Social History Tobacco Use Types [...] of this encounter Care Teams Oracle Applications Developer Relationship Specialty Start Date End Date Caitlyn Bowie MD 3400 [facility] 1 [place] [address] PCP - General Internal Medicine 05/06/21 Henry Kelly MD Pulmonary Department [address] [facility], [address] [place] [address] Physician Pulmonary Disease 09/06/17 06/22/20 documented as of this encounter
--- OUTSIDE RECORDS SUMMARY | 2025-05-22 12:25 | XMS_ITS | Encounter Summary ---
Author Organization [facility] and [facility] Address [address] [place] [address] Care Team Providers Care Stranner Name Role Phone Caitlyn Bowie MD Primary Care Provider +1- [phone] Encounter Details Date Type Department Care Team (Late st Contact Info) Description 04/02/2021 Scanned Document INTERFACE DEFAULT [address] [place] [address] System, Provider Not In Social History Tobacco [...] documented as of this encounter Care Teams Stranner Relationship Specialty Start Date End Date Caitlyn Bowie MD [address] [address] PCP - General Internal Medicine 05/06/21 documented as of this encounter
--- OUTSIDE RECORDS SUMMARY | 2025-05-22 12:25 | XMS_ITS | Encounter Summary ---
Author Organization [facility] and [facility] Address [address] [place] [address] Care Team Providers Care Branch Administrator Name Role Phone Caitlyn Bowie MD Primary Care Provider +1- [phone] Encounter Details Date Type Department Care Team ([facility] st Contact Info) Description 03/23/2021 Scanned Document INTERFACE DEFAULT [address] [place] [address] System, Provider Not In Social History Tobacco [...] as of this encounter Care Teams Branch Administrator Relationship Specialty Start Date End Date Caitlyn Bowie MD [address] [address] PCP - General Internal Medicine 05/06/21 documented as of this encounter
--- OUTSIDE RECORDS SUMMARY | 2025-05-22 12:26 | XMS_ITS | Encounter Summary ---
Author Organization [facility] Address [address] [place] [address] Care Team Providers Care Automation Design Engineer Name Role Phone Caitlyn Bowie MD Primary Care Provider +1- [phone] Encounter Details Date Type Department Care Team ([facility] st Contact Info) Description 02/24/2021 Scanned Document INTERFACE DEFAULT [address] [place] [address] System, Provider Not In Social History Tobacco [...] as of this encounter Care Teams Automation Design Engineer Relationship Specialty Start Date End Date Caitlyn Bowie MD [facility] [address] [address] PCP - General Internal Medicine 05/06/21 documented as of this encounter
--- OUTSIDE RECORDS SUMMARY | 2025-05-22 12:26 | XMS_ITS | Encounter Summary ---
Author Organization [facility] and [facility] Address [address] [place] [address] Care Team Providers Care Hr Generalist Name Role Phone Caitlyn Bowie MD Primary Care Provider +1- [phone] Encounter Details Date Type Department Care Team ([facility] st Contact Info) Description 02/25/2021 Scanned Document INTERFACE DEFAULT [address] [place] [address] System, Provider Not In Social History Tobacco [...] as of this encounter Care Teams Hr Generalist Relationship Specialty Start Date End Date Caitlyn Bowie MD [address] [address] PCP - General Internal Medicine 05/06/21 documented as of this encounter
--- OUTSIDE RECORDS SUMMARY | 2025-05-22 12:26 | XMS_ITS | Encounter Summary ---
Author Organization [facility] Address [address] [place] [address] Care Team Providers Care Dispatcher Chief Coal Slurry Name Role Phone Caitlyn Bowie MD Primary Care Provider +1- [phone] Encounter Details Date Type Department Care Team (Late st Contact Info) Description 09/01/2017 Scanned Document [facility] Health Information Management [address] [place] [address] External, Provider Social History Tobacco Use Types [...] as of this encounter Care Teams Dispatcher Chief Coal Slurry Relationship Specialty Start Date End Date Caitlyn Bowie MD [address] [facility] 1 [place] [address] PCP - General Internal Medicine 05/06/21 Henry Kelly MD Pulmonary Department [address] [facility], [address] [place] [address] Physician Pulmonary Disease 09/06/17 06/22/20 documented as of this encounter
--- OUTSIDE RECORDS SUMMARY | 2025-05-22 12:26 | XMS_ITS | Encounter Summary ---
Author Organization [facility] and [facility] Address [address] [place] [address] Care Team Providers Care Machinery Mechanic Name Role Phone Caitlyn Bowie MD Primary Care Provider +1- [phone] Encounter Details Date Type Department Care Team ([facility] st Contact Info) Description 11/29/2017 Scanned Document [facility] Health Information Management [address] [place] [address] External, Provider Social History Tobacco Use Types [...] documented as of this encounter Care Teams Machinery Mechanic Relationship Specialty Start Date End Date Caitlyn Bowie MD 3400 [facility] 1 [place] [address] PCP - General Internal Medicine 05/06/21 Henry Kelly MD Pulmonary Department [address] [facility], [address] [place] [address] Physician Pulmonary Disease 09/06/17 06/22/20 documented as of this encounter
--- OUTSIDE RECORDS SUMMARY | 2025-05-22 12:26 | XMS_ITS | Encounter Summary ---
Author Organization [facility] and [facility] Address [address] [place] [address] Care Team Providers Care Home Care Aide Name Role Phone Caitlyn Bowie MD Primary Care Provider +1- [phone] Encounter Details Date Type Department Care Team (Late st Contact Info) Description 10/16/2013 Scanned Document [facility] [address] [place] [address], 2nd floor [facility], [address] [place], [place] [address] Suzy Kong MD [address] [place] [address] Social History Tobacco Use Types Packs/Day [...] of this encounter Care Teams Home Care Aide Relationship Specialty Start Date End Date Caitlyn Bowie MD [address] [address] PCP - General Internal Medicine 05/06/21 Henry Kelly MD Pulmonary Department [address] [place] [address], [address] [place] [address] Physician Pulmonary Disease 09/06/17 06/22/20 documented as of this encounter
--- OUTSIDE RECORDS SUMMARY | 2025-05-22 12:26 | XMS_ITS | Encounter Summary ---
Author Organization [facility] and [facility] Address [address] [place] [address] Care Team Providers Care Supervisor Lead Burning Name Role Phone Caitlyn Bowie MD Primary Care Provider +1- [phone] Encounter Details Date Type Department Care Team (Late st Contact Info) Description 10/07/2013 Scanned Document [facility] On[facility] at [facility] [address] [facility] [address] [place] [address] Suzy Kong MD 6 [place] [address] Social History Tobacco Use Types [...] as of this encounter Care Teams Supervisor Lead Burning Relationship Specialty Start Date End Date Caitlyn Bowie MD [address] [phone] PCP - General Internal Medicine 05/06/21 Henry Kelly MD Pulmonary Department [address] [place] [address], [address] [place] [address] Physician Pulmonary Disease 09/06/17 06/22/20 documented as of this encounter
--- OUTSIDE RECORDS SUMMARY | 2025-05-22 12:26 | XMS_ITS | Encounter Summary ---
Author Organization [facility] and [facility] Address [address] [place] [address] Care Team Providers Care Box Turner Name Role Phone Caitlyn Bowie MD Primary Care Provider +1- [phone] Encounter Details Date Type Department Care Team ([facility] st Contact Info) Description 02/02/2021 Scanned Document INTERFACE DEFAULT [address] [place] [address] System, Provider Not In Social History Tobacco [...] as of this encounter Care Teams Box Turner Relationship Specialty Start Date End Date Caitlyn Bowie MD [address] [address] PCP - General Internal Medicine 05/06/21 documented as of this encounter
--- OUTSIDE RECORDS SUMMARY | 2025-05-22 12:26 | XMS_ITS | Encounter Summary ---
Author Organization [facility] Address [address] [place] [address] Care Team Providers Care Claims Manager Name Role Phone Caitlyn Bowie MD Primary Care Provider +1- [phone] Encounter Details Date Type Department Care Team ([facility] st Contact Info) Description 01/26/2018 Scanned Document [facility] Health Information Management [address] [place] [address] External, Provider Social History Tobacco Use Types [...] as of this encounter Care Teams Claims Manager Relationship Specialty Start Date End Date Caitlyn Bowie MD [address] [facility] 1 [place] [address] PCP - General Internal Medicine 05/06/21 Henry Kelly MD Pulmonary Department [address] [facility], [address] [place] [address] Physician Pulmonary Disease 09/06/17 06/22/20 documented as of this encounter
--- OUTSIDE RECORDS SUMMARY | 2025-05-22 12:26 | XMS_ITS | Encounter Summary ---
Author Organization [facility] and [facility] Address [address] [place] [address] Care Team Providers Care Microsoft Dynamics Manager Architect Name Role Phone Caitlyn Bowie MD Primary Care Provider +1- [phone] Encounter Details Date Type Department Care Team (Late st Contact Info) Description 02/03/2021 Scanned Document INTERFACE DEFAULT [address] [place] [address] System, Provider Not In Social History Tobacco [...] End Date Caitlyn Bowie MD [address] [address] PCP - General Internal Medicine 05/06/21 documented as of this encounter
--- OUTSIDE RECORDS SUMMARY | 2025-05-22 12:26 | XMS_ITS | Encounter Summary ---
Author Organization [facility] and [facility] Address [address] [place] [address] Care Team Providers Care Manager Documentation Name Role Phone Caitlyn Bowie MD Primary Care Provider +1- [phone] Encounter Details Date Type Department Care Team ([facility] st Contact Info) Description 01/26/2018 Scanned Document [facility] Health Information Management [address] [place] [address] External, Provider Social History Tobacco Use Types [...] as of this encounter Care Teams Manager Documentation Relationship Specialty Start Date End Date Caitlyn Bowie MD [address] [address] PCP - General Internal Medicine 05/06/21 Henry Kelly MD Pulmonary Department 175 [facility], [address] [place] [address] Physician Pulmonary Disease 09/06/17 06/22/20 documented as of this encounter
--- OUTSIDE RECORDS SUMMARY | 2025-05-22 12:26 | XMS_ITS | Encounter Summary ---
Author Organization [facility] Address [address] [place] [address] Phone Care Team Providers Care Pack Operator Name Role Phone Caitlyn Bowie MD Primary Care Provider +1- [phone] Encounter Details Date Type Department Care Team (Late Contact Info) Description 12/12/2024 Documentation Only [facility] [address] [place] [address] Marina Abdi [address] [place] [address] Social History Tobacco Use Types [...] Visit [facility] [address] [place] [address] Rubén Ashraf MD [address] [place] [address] [place] [address] documented as of this encounter Visit Diagnoses Not on filedocumented in this encounter Care Teams Pack Operator Relationship Specialty Start Date End Date Caitlyn Bowie MD [address] [place], [place] PCP - General Internal Medicine 09/24/24 documented as of this encounter
--- OUTSIDE RECORDS SUMMARY | 2025-05-22 12:26 | XMS_ITS | Encounter Summary ---
Author Organization [facility] and [facility] Address [address] [place] [address] Care Team Providers Care Doctor Of Radiology Name Role Phone Caitlyn Bowie MD Primary Care Provider +1- [phone] Encounter Details Date Type Department Care Team ([facility] st Contact Info) Description 08/23/2017 Scanned Document [facility] Health Information Management [address] [place] [address] External, Provider Social History Tobacco Use Types [...] of this encounter Care Teams Doctor Of Radiology Relationship Specialty Start Date End Date Caitlyn Bowie MD 3400 [facility] 1 [place] [address] PCP - General Internal Medicine 05/06/21 Henry Kelly MD Pulmonary Department [address] [facility], [address] [place] [address] Physician Pulmonary Disease 09/06/17 06/22/20 documented as of this encounter
--- OUTSIDE RECORDS SUMMARY | 2025-05-22 12:26 | XMS_ITS | Encounter Summary ---
Author Organization [facility] and [facility] Address [address] [place] [address] Care Team Providers Care Heat And Frost Insulator Helper Name Role Phone Caitlyn Bowie MD Primary Care Provider +1- [phone] Encounter Details Date Type Department Care Team (Late st Contact Info) Description 02/02/2021 Scanned Document [facility] Health Information Management [address] [place] [address] External, Provider Social History Tobacco Use Types [...] as of this encounter Care Teams Heat And Frost Insulator Helper Relationship Specialty Start Date End Date Caitlyn Bowie MD [address] [address] PCP - General Internal Medicine 05/06/21 documented as of this encounter
--- OUTSIDE RECORDS SUMMARY | 2025-05-22 12:26 | XMS_ITS | Encounter Summary ---
Author Organization [facility] and [facility] Address [address] [place] [address] Care Team Providers Care Civil Clerk Name Role Phone Caitlyn Bowie MD Primary Care Provider +1- [phone] Encounter Details Date Type Department Care Team (Late st Contact Info) Description 09/18/2020 Scanned Document INTERFACE DEFAULT [address] [place] [address] System, Provider Not In Social History Tobacco [...] as of this encounter Care Teams Civil Clerk Relationship Specialty Start Date End Date Caitlyn Bowie MD [address] [address] PCP - General Internal Medicine 05/06/21 documented as of this encounter
--- OUTSIDE RECORDS SUMMARY | 2025-05-22 12:26 | XMS_ITS | Encounter Summary ---
Author Organization [facility] Address [address] [place] [address] Care Team Providers Care Behavioral Sciences Instructor Name Role Phone Caitlyn Bowie MD Primary Care Provider +1- [phone] Encounter Details Date Type Department Care Team (Late st Contact Info) Description 01/27/2021 Scanned Document [facility] [address] [address] External, Provider Social History Tobacco Use [...] as of this encounter Care Teams Behavioral Sciences Instructor Relationship Specialty Start Date End Date Caitlyn Bowie MD [address] [address] PCP - General Internal Medicine 05/06/21 documented as of this encounter
--- OUTSIDE RECORDS SUMMARY | 2025-05-22 12:26 | XMS_ITS | Encounter Summary ---
Author Organization [facility] and [facility] Address [address] [place] [address] Care Team Providers Care Cotton Gin Yard Supervisor Name Role Phone Caitlyn Bowie MD Primary Care Provider +1- [phone] Encounter Details Date Type Department Care Team (Late st Contact Info) Description 01/07/2014 Documentation [facility] [address] [place] [address] Shilpi Ibarra [address] [place] [address] Social History Tobacco Use Types Packs/Day Years [...] as of this encounter Care Teams Cotton Gin Yard Supervisor Relationship Specialty Start Date End Date Caitlyn Bowie MD 3400 [facility] 1 [place] [address] PCP - General Internal Medicine 05/06/21 Henry Kelly MD Pulmonary Department 175 [facility], [address] [place] [address] Physician Pulmonary Disease 09/06/17 06/22/20 documented as of this encounter
--- OUTSIDE RECORDS SUMMARY | 2025-05-22 12:26 | XMS_ITS | Encounter Summary ---
Author Organization [facility] Address [address] [place] [address] Phone Care Team Providers Care Core Piler Name Role Phone Caitlyn Bowie MD Primary Care Provider +1- [phone] Encounter Details Date Type Department Care Team (Late Contact Info) Description 12/12/2024 Documentation Only [facility] [address] [place] [address] Marina Abdi [address] [place] [address] Social History Tobacco Use Types [...] [facility] [address] [place] [address] Rubén Ashraf MD [address] [place] [address] [place] [address] documented as of this encounter Visit Diagnoses Not on filedocumented in this encounter Care Teams Core Piler Relationship Specialty Start Date End Date Caitlyn Bowie MD [address]00 [place], [place] PCP - General Internal Medicine 09/24/24 documented as of this encounter
--- OUTSIDE RECORDS SUMMARY | 2025-05-22 12:26 | XMS_ITS | Encounter Summary ---
Author Organization [facility] Address [address] [place] [address] Care Team Providers Care Catering Associate Name Role Phone Caitlyn Bowie MD Primary Care Provider +1- [phone] Encounter Details Date Type Department Care Team (Late st Contact Info) Description 02/11/2021 Scanned Document INTERFACE DEFAULT [address] [place] [address] System, Provider Not In Social History Tobacco [...] as of this encounter Care Teams Catering Associate Relationship Specialty Start Date End Date Caitlyn Bowie MD [address] [address] PCP - General Internal Medicine 05/06/21 documented as of this encounter
--- OUTSIDE RECORDS SUMMARY | 2025-05-22 12:26 | XMS_ITS | Encounter Summary ---
Author Organization [facility] and [facility] Address [address] [place] [address] Care Team Providers Care Chief Transfer And Pumphouse Operator Name Role Phone Caitlyn Bowie MD Primary Care Provider +1- [phone] Encounter Details Date Type Department Care Team ([facility] st Contact Info) Description 02/28/2021 Scanned Document INTERFACE DEFAULT [address] [place] [address] System, Provider Not In Social History Tobacco [...] as of this encounter Care Teams Chief Transfer And Pumphouse Operator Relationship Specialty Start Date End Date Caitlyn Bowie MD [address] [address] PCP - General Internal Medicine 05/06/21 documented as of this encounter
--- OUTSIDE RECORDS SUMMARY | 2025-05-22 12:26 | XMS_ITS | Encounter Summary ---
Author Organization [facility] and [facility] Address [address] [place] [address] Care Team Providers Care Supervisor Cold Rolling Name Role Phone Caitlyn Bowie MD Primary Care Provider +1- [phone] Encounter Details Date Type Department Care Team (Late st Contact Info) Description 01/13/2021 Scanned Document [facility] at [address] [phone] Ronald Mills MD [address] [place] [address] Social History Tobacco Use Types Packs/Day [...] as of this encounter Care Teams Supervisor Cold Rolling Relationship Specialty Start Date End Date Caitlyn Bowie MD [address] [address] PCP - General Internal Medicine 05/06/21 documented as of this encounter
--- OUTSIDE RECORDS SUMMARY | 2025-05-22 12:26 | XMS_ITS | Encounter Summary ---
Author Organization [facility] Address [address] [place] [address] Care Team Providers Care Tax Accountant Name Role Phone Caitlyn Bowie MD Primary Care Provider +1- [phone] Encounter Details Date Type Department Care Team (Late st Contact Info) Description 03/01/2021 Scanned Document INTERFACE DEFAULT [address] [place] [address] System, Provider Not In Social History Tobacco [...] as of this encounter Care Teams Tax Accountant Relationship Specialty Start Date End Date Caitlyn Bowie MD [address] [address] PCP - General Internal Medicine 05/06/21 documented as of this encounter
--- OUTSIDE RECORDS SUMMARY | 2025-05-22 12:26 | XMS_ITS | Encounter Summary ---
Author Organization [facility] and [facility] Address [address] [place] [address] Care Team Providers Care Security System Technician Name Role Phone Caitlyn Bowie MD Primary Care Provider +1- [phone] Encounter Details Date Type Department Care Team ([facility] st Contact Info) Description 03/08/2021 Scanned Document INTERFACE DEFAULT [address] [place] [address] System, Provider Not In Social History Tobacco [...] End Date Caitlyn Bowie MD [address] [address] PCP - General Internal Medicine 05/06/21 documented as of this encounter
--- OUTSIDE RECORDS SUMMARY | 2025-05-22 12:26 | XMS_ITS | Encounter Summary ---
Author Organization [facility] Address [address] [place] [address] Care Team Providers Care Account Collector Name Role Phone Caitlyn Bowie MD Primary Care Provider +1- [phone] Encounter Details Date Type Department Care Team (Late st Contact Info) Description 02/15/2021 Scanned Document INTERFACE DEFAULT [address] [place] [address] System, Provider Not In Social History Tobacco [...] as of this encounter Care Teams Account Collector Relationship Specialty Start Date End Date Caitlyn Bowie MD [address] [address] PCP - General Internal Medicine 05/06/21 documented as of this encounter
--- OUTSIDE RECORDS SUMMARY | 2025-05-22 12:26 | XMS_ITS | Encounter Summary ---
Author Organization [facility] and [facility] Address [address] [place] [address] Care Team Providers Care Acetylene Gas Compressor Name Role Phone Caitlyn Bowie MD Primary Care Provider +1- [phone] Encounter Details Date Type Department Care Team ([facility] st Contact Info) Description 02/03/2021 Scanned Document [facility] Health Information Management [address] [place] [address] External, Provider Social History Tobacco Use Types [...] documented as of this encounter Care Teams Acetylene Gas Compressor Relationship Specialty Start Date End Date Caitlyn Bowei MD [address] [address] PCP - General Internal Medicine 05/06/21 documented as of this encounter
--- OUTSIDE RECORDS SUMMARY | 2025-05-22 12:26 | XMS_ITS | Encounter Summary ---
Author Organization [facility] and [facility] Address [address] [place] [address] Care Team Providers Care Principal Associate Name Role Phone Caitlyn Bowie MD Primary Care Provider +1- [phone] Encounter Details Date Type Department Care Team ([facility] st Contact Info) Description 02/07/2021 Scanned Document INTERFACE DEFAULT [address] [place] [address] System, Provider Not In Social History Tobacco [...] as of this encounter Care Teams Principal Associate Relationship Specialty Start Date End Date Caitlyn Bowie MD [address] [address] PCP - General Internal Medicine 05/06/21 documented as of this encounter
--- OUTSIDE RECORDS SUMMARY | 2025-05-22 12:26 | XMS_ITS | Encounter Summary ---
Author Organization [facility] Address [address] [place] [address] Care Team Providers Care Adult Educator Name Role Phone Caitlyn Bowie MD Primary Care Provider +1- [phone] Encounter Details Date Type Department Care Team (Late st Contact Info) Description 02/08/2021 Scanned Document INTERFACE DEFAULT [address] [place] [address] System, Provider Not In Social History Tobacco [...] as of this encounter Care Teams Adult Educator Relationship Specialty Start Date End Date Caitlyn Bowie MD [address] [address] PCP - General Internal Medicine 05/06/21 documented as of this encounter
--- OUTSIDE RECORDS SUMMARY | 2025-05-22 12:27 | XMS_ITS | Encounter Summary ---
Author Organization [facility] Address [address] [place] [address] Care Team Providers Care Hyperion Essbase Developer Name Role Phone Caitlyn Bowie MD Primary Care Provider +1- [phone] Encounter Details Date Type Department Care Team (Late st Contact Info) Description 05/01/2015 Scanned Document [facility] Health Information Management [address] [place] [address] External, Provider Social History Tobacco Use Types [...] as of this encounter Care Teams Hyperion Essbase Developer Relationship Specialty Start Date End Date Caitlyn Bowie MD 3400 [facility] 1 [place] [address] PCP - General Internal Medicine 05/06/21 Henry Kelly MD Pulmonary Department 175 [facility], [address] [place] [address] Physician Pulmonary Disease 09/06/17 06/22/20 documented as of this encounter
--- OUTSIDE RECORDS SUMMARY | 2025-05-22 12:27 | XMS_ITS | Encounter Summary ---
Author Organization [facility] Address [address] [place] [address] Care Team Providers Care Chairman And Ceo Name Role Phone Caitlyn Bowie MD Primary Care Provider +1- [phone] Encounter Details Date Type Department Care Team (Late st Contact Info) Description 03/13/2015 Scanned Document [facility] Health Information Management [address] [place] [address] External, Provider Social History Tobacco Use Types [...] ult [facility] [place], [place], [place] * Lab Scan (02/16/2015) Blood specimen (specimen) us Provider External LAB BLOOD ORDERABLES Final Res ult Performing Organization Address City/State/[facility] Co de Phone Number [facility] documented in this encounter Visit Diagnoses Not on filedocumented in this encounter Additional Health Concerns Infection Onset Date Last Indicated Resolved Time COVID-19 03/05/2022 03/05/2022 03/15/2022 7:18 PM EDT documented as of this encounter Care Teams Chairman And Ceo Relationship Specialty Start Date End Date Caitlyn Bowie MD 3400 [facility] 1 [place] [address] PCP - General Internal Medicine 05/06/21 Henry Kelly MD Pulmonary Department 175 [facility], [address] [place] [address] Physician Pulmonary Disease 09/06/17 06/22/20 documented as of this encounter
--- OUTSIDE RECORDS SUMMARY | 2025-05-22 12:27 | XMS_ITS | Encounter Summary ---
Author Organization [facility] Address [address] [place] [address] Care Team Providers Care Printing Worker Supervisor Name Role Phone Caitlyn Bowie MD Primary Care Provider +1- [phone] Encounter Details Date Type Department Care Team ([facility] st Contact Info) Description 02/02/2018 Scanned Document [facility] Health Information Management [address] [place] [address] External, Provider Social History Tobacco Use Types [...] as of this encounter Care Teams Printing Worker Supervisor Relationship Specialty Start Date End Date Caitlyn Bowie MD 3400 [facility] 1 [place] [address] PCP - General Internal Medicine 05/06/21 Henry Kelly MD Pulmonary Department 175 [facility], [address] [place] [address] Physician Pulmonary Disease 09/06/17 06/22/20 documented as of this encounter
--- OUTSIDE RECORDS SUMMARY | 2025-05-22 12:27 | XMS_ITS | Encounter Summary ---
Author Organization [facility] Address [address] [place] [address] Care Team Providers Care Immunohematologist Name Role Phone Caitlyn Bowie MD Primary Care Provider +1- [phone] Encounter Details Date Type Department Care Team (Late st Contact Info) Description 11/18/2021 Scanned Document [facility] Health Information Management [address] [place] [address] External, Provider Social History Tobacco Use Types [...] documented as of this encounter Care Teams Immunohematologist Relationship Specialty Start Date End Date Caitlyn Bowie MD [address] [address] PCP - General Internal Medicine 05/06/21 documented as of this encounter
--- OUTSIDE RECORDS SUMMARY | 2025-05-22 12:27 | XMS_ITS | Encounter Summary ---
Author Organization [facility] and [facility] Address [address] [place] [address] Care Team Providers Care Restaurant Lead Name Role Phone Caitlyn Bowie MD Primary Care Provider +1- [phone] Encounter Details Date Type Department Care Team (Late st Contact Info) Description 01/28/2018 Scanned Document [facility] Health Information Management [address] [place] [address] External, Provider Social History Tobacco Use Types [...] as of this encounter Care Teams Restaurant Lead Relationship Specialty Start Date End Date Caitlyn Bowie MD 3400 [facility] 1 [place] [address] PCP - General Internal Medicine 05/06/21 Henry Kelly MD Pulmonary Department [address] [place] [address], [address] [place] [address] Physician Pulmonary Disease 09/06/17 06/22/20 documented as of this encounter
--- OUTSIDE RECORDS SUMMARY | 2025-05-22 12:27 | XMS_ITS | Encounter Summary ---
Author Organization [facility] Address [address] [place] [address] Care Team Providers Care Boat Driver Name Role Phone Caitlyn Bowie MD Primary Care Provider +1- [phone] Encounter Details Date Type Department Care Team ([facility] st Contact Info) Description 01/28/2018 Scanned Document [facility] Health Information Management [address] [place] [address] External, Provider Social History Tobacco Use Types [...] Caitlyn Bowie MD [address] [address] PCP - General Internal Medicine 05/06/21 Henry Kelly MD Pulmonary Department 175 [facility], [address] [place] [address] Physician Pulmonary Disease 09/06/17 06/22/20 documented as of this encounter
--- OUTSIDE RECORDS SUMMARY | 2025-05-22 12:27 | XMS_ITS | Encounter Summary ---
Author Organization [facility] and [facility] Address [address] [place] [address] Care Team Providers Care Information Operator Name Role Phone Caitlyn Bowie MD Primary Care Provider +1- [phone] Encounter Details Date Type Department Care Team ([facility] st Contact Info) Description 02/19/2015 Scanned Document [facility] Health Information Management [address] [place] [address] External, Provider Social History Tobacco Use Types [...] LAB BLOOD ORDERABLES Final Res ult [facility] [place], [place], [facility] documented in this encounter Visit Diagnoses Not on filedocumented in this encounter Additional Health Concerns Infection Onset Date Last Indicated Resolved Time COVID-19 03/05/2022 03/05/2022 03/15/2022 7:18 PM EDT documented as of this encounter Care Teams Information Operator Relationship Specialty Start Date End Date Caitlyn Bowie MD 3400 [facility] 1 [place] [address] PCP - General Internal Medicine 05/06/21 Henry Kelly MD Pulmonary Department 175 [facility], [address] [place] [address] Physician Pulmonary Disease 09/06/17 06/22/20 documented as of this encounter
--- OUTSIDE RECORDS SUMMARY | 2025-05-22 12:27 | XMS_ITS | Encounter Summary ---
Author Organization [facility] Address [address] [place] [address] Care Team Providers Care Sugar Plantation Manager Name Role Phone Caitlyn Bowie MD Primary Care Provider +1- [phone] Encounter Details Date Type Department Care Team (Late st Contact Info) Description 01/13/2021 Scanned Document [facility] at [address] [address] External, Provider Social History Tobacco Use Types [...] as of this encounter Care Teams Sugar Plantation Manager Relationship Specialty Start Date End Date Caitlyn Bowie MD [address] [address] PCP - General Internal Medicine 05/06/21 documented as of this encounter
--- OUTSIDE RECORDS SUMMARY | 2025-05-22 12:27 | XMS_ITS | Encounter Summary ---
Author Organization [facility] Address [address] [place] [address] Care Team Providers Care Search Director Name Role Phone Caitlyn Bowie MD Primary Care Provider +1- [phone] Encounter Details Date Type Department Care Team ([facility] st Contact Info) Description 11/09/[address] [facility] Health Information Management [address] [place] [address] External, Provider Social History Tobacco Use [...] as of this encounter Care Teams Search Director Relationship Specialty Start Date End Date Caitlyn Bowie MD [address] [address] PCP - General Internal Medicine 05/06/21 Henry Kelly MD Pulmonary Department 175 [facility], [address] [place] [address] Physician Pulmonary Disease 09/06/17 06/22/20 documented as of this encounter
--- OUTSIDE RECORDS SUMMARY | 2025-05-22 12:27 | XMS_ITS | Encounter Summary ---
Author Organization [facility] and [facility] Address [address] [place] [address] Care Team Providers Care Order Expediter Name Role Phone Caitlyn Bowie MD Primary Care Provider +1- [phone] Encounter Details Date Type Department Care Team ([facility] st Contact Info) Description 02/02/2018 Scanned Document [facility] Health Information Management [address] [place] [address] External, Provider Social History Tobacco Use Types [...] as of this encounter Care Teams Order Expediter Relationship Specialty Start Date End Date Caitlyn Bowie MD [address] [address] PCP - General Internal Medicine 05/06/21 Henry Kelly MD Pulmonary Department 175 [facility], [address] [place] [address] Physician Pulmonary Disease 09/06/17 06/22/20 documented as of this encounter
--- OUTSIDE RECORDS SUMMARY | 2025-05-22 12:27 | XMS_ITS | Encounter Summary ---
Author Organization [facility] and [facility] Address [address] [place] [address] Care Team Providers Care Track Grinder Name Role Phone Caitlyn Bowie MD Primary Care Provider +1- [phone] Encounter Details Date Type Department Care Team (Late st Contact Info) Description 12/28/2021 Scanned Document INTERFACE DEFAULT [address] [place] [address] System, Provider Not In Social History Tobacco [...] as of this encounter Care Teams Track Grinder Relationship Specialty Start Date End Date Caitlyn Bowie MD [address] [address] PCP - General Internal Medicine 05/06/21 documented as of this encounter
--- OUTSIDE RECORDS SUMMARY | 2025-05-22 12:27 | XMS_ITS | Encounter Summary ---
Author Organization [facility] and [facility] Address [address] [place] [address] Care Team Providers Care Paradi Operator Name Role Phone Caitlyn Bowie MD Primary Care Provider +1- [phone] Encounter Details Date Type Department Care Team ([facility] st Contact Info) Description 11/07/2014 Scanned Document [facility] Health Information Management [address] [place] [address] External, Provider Social History Tobacco Use Types [...] documented as of this encounter Care Teams Paradi Operator Relationship Specialty Start Date End Date Caitlyn Bowie MD [address] [address] PCP - General Internal Medicine 05/06/21 Henry Kelly MD Pulmonary Department 175 [facility], [address] [place] [address] Physician Pulmonary Disease 09/06/17 06/22/20 documented as of this encounter
--- OUTSIDE RECORDS SUMMARY | 2025-05-22 12:27 | XMS_ITS | Encounter Summary ---
Author Organization [facility] and [facility] Address [address] [place] [address] Care Team Providers Care Single Pass Soil Stabilizer Operator Name Role Phone Caitlyn Bowie MD Primary Care Provider +1- [phone] Encounter Details Date Type Department Care Team ([facility] st Contact Info) Description 05/14/2015 Scanned Document [facility] Health Information Management [address] [place] [address] External, Provider Social History Tobacco Use Types [...] as of this encounter Care Teams Single Pass Soil Stabilizer Operator Relationship Specialty Start Date End Date Caitlyn Bowie MD [address] [address] PCP - General Internal Medicine 05/06/21 Henry Kelly MD Pulmonary Department 175 [facility], [address] [place] [address] Physician Pulmonary Disease 09/06/17 06/22/20 documented as of this encounter
--- OUTSIDE RECORDS SUMMARY | 2025-05-22 12:27 | XMS_ITS | Encounter Summary ---
Author Organization [facility] and [facility] Address [address] [place] [address] Care Team Providers Care Utility Manager Name Role Phone Caitlyn Bowie MD Primary Care Provider +1- [phone] Encounter Details Date Type Department Care Team ([facility] st Contact Info) Description 07/31/2015 Scanned Document [facility] Health Information Management [address] [place] [address] External, Provider Social History Tobacco Use Types [...] Edited Result - Final [facility] [place], [place], [facility] documented in this encounter Visit Diagnoses Not on filedocumented in this encounter Additional Health Concerns Infection Onset Date Last Indicated Resolved Time COVID-19 03/05/2022 03/05/2022 03/15/2022 7:18 PM EDT documented as of this encounter Care Teams Utility Manager Relationship Specialty Start Date End Date Caitlyn Bowie MD 3400 [facility] 1 [place] [address] PCP - General Internal Medicine 05/06/21 Henry Kelly MD Pulmonary Department 175 [facility], [address] [place] [address] Physician Pulmonary Disease 09/06/17 06/22/20 documented as of this encounter
--- OUTSIDE RECORDS SUMMARY | 2025-05-22 12:27 | XMS_ITS | Encounter Summary ---
Author Organization [facility] and [facility] Address [address] [place] [address] Care Team Providers Care Shipping Processor Name Role Phone Caitlyn Bowie MD Primary Care Provider +1- [phone] Encounter Details Date Type Department Care Team ([facility] st Contact Info) Description 04/28/2015 Scanned Document [facility] Health Information Management [address] [place] [address] External, Provider Social History Tobacco Use Types [...] as of this encounter Care Teams Shipping Processor Relationship Specialty Start Date End Date Caitlyn Bowie MD [address] [address] PCP - General Internal Medicine 05/06/21 Henry Kelly MD Pulmonary Department 175 [facility], [address] [place] [address] Physician Pulmonary Disease 09/06/17 06/22/20 documented as of this encounter
--- OUTSIDE RECORDS SUMMARY | 2025-05-22 12:27 | XMS_ITS | Encounter Summary ---
Author Organization [facility] and [facility] Address [address] [place] [address] Care Team Providers Care Mail Processing Equipment Mechanic Name Role Phone Caitlyn Bowie MD Primary Care Provider +1- [phone] Encounter Details Date Type Department Care Team (Late st Contact Info) Description 03/26/2015 Scanned Document Cardiovascular Medicine at [address] [place], [place] [address] Norma Renee MD [address] [place] [address] Social History Tobacco Use Types Packs/Day [...] as of this encounter Care Teams Mail Processing Equipment Mechanic Relationship Specialty Start Date End Date Caitlyn Bowie MD [address] [address] PCP - General Internal Medicine 05/06/21 Henry Kelly MD Pulmonary Department [address] [place] [address], [address] [place] [address] Physician Pulmonary Disease 09/06/17 06/22/20 documented as of this encounter
--- OUTSIDE RECORDS SUMMARY | 2025-05-22 12:27 | XMS_ITS | Encounter Summary ---
Author Organization [facility] and [facility] Address [address] [place] [address] Care Team Providers Care Cable Rigger Name Role Phone Caitlyn Bowie MD Primary Care Provider +1- [phone] Encounter Details Date Type Department Care Team ([facility] st Contact Info) Description 04/18/2018 Scanned Document [facility] Health Information Management [address] [place] [address] External, Provider Social History Tobacco Use Types [...] as of this encounter Care Teams Cable Rigger Relationship Specialty Start Date End Date Caitlyn Bowie MD 3400 [facility] 1 [place] [address] PCP - General Internal Medicine 05/06/21 Henry Kelly MD Pulmonary Department 175 [facility], [address] [place] [address] Physician Pulmonary Disease 09/06/17 06/22/20 documented as of this encounter
--- OUTSIDE RECORDS SUMMARY | 2025-05-22 12:27 | XMS_ITS | Encounter Summary ---
Author Organization [facility] Address [address] [place] [address] Care Team Providers Care Test Manager Name Role Phone Caitlyn Bowie MD Primary Care Provider +1- [phone] Encounter Details Date Type Department Care Team (Late st Contact Info) Description 11/09/2020 Scanned Document INTERFACE DEFAULT [address] [place] [address] System, Provider Not In Social History Tobacco [...] as of this encounter Care Teams Test Manager Relationship Specialty Start Date End Date Caitlyn Bowie MD [address] [address] PCP - General Internal Medicine 05/06/21 documented as of this encounter
--- OUTSIDE RECORDS SUMMARY | 2025-05-22 12:27 | XMS_ITS | Encounter Summary ---
Author Organization [facility] and [facility] Address [address] [place] [address] Care Team Providers Care Carbon Dioxide Operator Name Role Phone Caitlyn Bowie MD Primary Care Provider +1- [phone] Encounter Details Date Type Department Care Team ([facility] st Contact Info) Description 02/01/2018 Scanned Document [facility] Health Information Management [address] [place] [address] External, Provider Social History Tobacco Use Types [...] as of this encounter Care Teams Carbon Dioxide Operator Relationship Specialty Start Date End Date Caitlyn Bowie MD 3400 [facility] 1 [place] [address] PCP - General Internal Medicine 05/06/21 Henry Kelly MD Pulmonary Department 175 [facility], [address] [place] [address] Physician Pulmonary Disease 09/06/17 06/22/20 documented as of this encounter
--- OUTSIDE RECORDS SUMMARY | 2025-05-22 12:27 | XMS_ITS | Encounter Summary ---
Author Organization [facility] and [facility] Address [address] [place] [address] Care Team Providers Care Clerk Carrier Name Role Phone Caitlyn Bowie MD Primary Care Provider +1- [phone] Encounter Details Date Type Department Care Team ([facility] st Contact Info) Description 04/16/2018 Scanned Document [facility] Health Information Management [address] [place] [address] External, Provider Social History Tobacco Use Types [...] as of this encounter Care Teams Clerk Carrier Relationship Specialty Start Date End Date Caitlyn Bowie MD [address] [address] PCP - General Internal Medicine 05/06/21 Henry Kelly MD Pulmonary Department 175 [facility], [address] [place] [address] Physician Pulmonary Disease 09/06/17 06/22/20 documented as of this encounter
--- OUTSIDE RECORDS SUMMARY | 2025-05-22 12:27 | XMS_ITS | Encounter Summary ---
Author Organization [facility] and [facility] Address [address] [place] [address] Care Team Providers Care Php Software Engineer Name Role Phone Caitlyn Bowie MD Primary Care Provider +1- [phone] Encounter Details Date Type Department Care Team (Late st Contact Info) Description 04/03/2018 Scanned Document [facility] [address] [place] [address] Provider, Historical . Social History Tobacco Use [...] Bowie MD 3400 [facility] 1 [place] [address] PCP - General Internal Medicine 05/06/21 Henry Kelly MD Pulmonary Department 175 [facility], [address] [place] [address] Physician Pulmonary Disease 09/06/17 06/22/20 documented as of this encounter
--- OUTSIDE RECORDS SUMMARY | 2025-05-22 12:27 | XMS_ITS | Encounter Summary ---
Author Organization [facility] and [facility] Address [address] [place] [address] Care Team Providers Care Residence Hall Director Name Role Phone Caitlyn Bowie MD Primary Care Provider +1- [phone] Encounter Details Date Type Department Care Team ([facility] st Contact Info) Description 03/14/2018 Scanned Document [facility] Health Information Management [address] [place] [address] External, Provider Social History Tobacco Use Types [...] Bowie MD 3400 [facility] 1 [place] [address] PCP - General Internal Medicine 05/06/21 Henry Kelly MD Pulmonary Department 175 [facility], [address] [place] [address] Physician Pulmonary Disease 09/06/17 06/22/20 documented as of this encounter
--- OUTSIDE RECORDS SUMMARY | 2025-05-22 12:27 | XMS_ITS | Clinical Summary ---
Author Organization [facility] Address [address] [place] [address] Care Team Providers Care Microfilm Equipment Inspector Name Role Phone Caitlyn Bowie MD Primary Care Provider +1- [phone] Allergies Active Allergy Reactions Criticality Noted Date [...] Breath High 05/09/2008 Bronchospasm or Wheezing Ipratropium [place] Unknown/Patient and Family Unable to Define Medium [...] 1 capsule by mouth daily. Active B Zgpjcoy-V-Vzqxn Acid (STRESS 500 B-COMPLEX PO) Take 1 [...] Department Care Team Description 03/14/2025 Scanned Document [facility] Neurology Ophthalmology [address] [address] Shirley Chaidez PA-C from Last 3 Months [...] & B MEDICARE PART A & B [facility] Care Teams Microfilm Equipment Inspector Relationship Specialty Start Date End Date Caitlyn Bowie MD 3400 [place] [address] PCP - General Internal Medicine 03/20/23
--- OUTSIDE RECORDS SUMMARY | 2025-05-22 12:27 | XMS_ITS | Encounter Summary ---
Author Organization [facility] and [facility] Address [address] [place] [address] Care Team Providers Care Child Specialist Name Role Phone Caitlyn Bowie MD Primary Care Provider +1- [phone] Reason for Visit * Reason Comments Other Encounter Details Date Type Department Care Team (Late st Contact Info) Description 01/12/2021 Telephone [facility] at [address] - [address] [id number] Ronald Mills MD [address] [place] [phone] Other Social History Tobacco Use Types [...] AM EDT Lab orders were faxed to [facility] @ [phone]. Patient notified by phone. * Telephone Encounter - Kathleen Nasima - 01/12/2021 8:46 AM EDT Pt called looking to speak with Kirstin RE: lab orders sent to lab [facility] lab Looking to have labs sent [...] as of this encounter Care Teams Child Specialist Relationship Specialty Start Date End Date Caitlyn Bowie MD [address] [address] PCP - General Internal Medicine 05/06/21 documented as of this encounter
--- OUTSIDE RECORDS SUMMARY | 2025-05-22 12:27 | XMS_ITS | Encounter Summary ---
Author Organization [facility] and [facility] Address [address] [place] [address] Care Team Providers Care Die Trimmer Name Role Phone Caitlyn Bowie MD Primary Care Provider +1- [phone] Encounter Details Date Type Department Care Team ([facility] st Contact Info) Description 04/28/2015 Scanned Document [facility] Health Information Management [address] [place] [address] External, Provider Social History Tobacco Use Types [...] Edited Re sult - Final [facility] [place], [place], [facility] documented in this encounter Visit Diagnoses Not on filedocumented in this encounter Additional Health Concerns Infection Onset Date Last Indicated Resolved Time COVID-19 03/05/2022 03/05/2022 03/15/2022 7:18 PM EDT documented as of this encounter Care Teams Die Trimmer Relationship Specialty Start Date End Date Cailtyn Bowie MD 3400 [facility] 1 [place] [address] PCP - General Internal Medicine 05/06/21 Henry Kelly MD Pulmonary Department [address] [place] [address], [address] [place] [address] Physician Pulmonary Disease 09/06/17 06/22/20 documented as of this encounter
--- OUTSIDE RECORDS SUMMARY | 2025-05-22 12:27 | XMS_ITS | Encounter Summary ---
Author Organization [facility] Address [address] [place] [address] Care Team Providers Care Hardwood Sawyer Name Role Phone Caitlyn Bowie MD Primary Care Provider +1- [phone] Encounter Details Date Type Department Care Team (Late st Contact Info) Description 03/14/2025 Scanned Document [facility] Neurology Ophthalmology [address] [place] [address] Shirley Chaidez PA-C [address] [address] Social History Tobacco Use Types Packs/Day Years [...] on filedocumented in this encounter Care Teams Hardwood Sawyer Relationship Specialty Start Date End Date Caitlyn Bowie MD [address] [place] [address] PCP - General Internal Medicine 03/20/23 documented as of this encounter
--- OUTSIDE RECORDS SUMMARY | 2025-05-22 12:27 | XMS_ITS | Encounter Summary ---
Author Organization [facility] and [facility] Address [address] [place] [address] Care Team Providers Care Brine Mixer Operator Name Role Phone Caitlyn Bowie MD Primary Care Provider +1- [phone] Encounter Details Date Type Department Care Team ([facility] st Contact Info) Description 01/27/2018 Scanned Document [facility] IN[facility] 234 BEDS AT [facility] Health Information Management [address] [place] [address] External, Provider Social History Tobacco Use Types [...] as of this encounter Care Teams Brine Mixer Operator Relationship Specialty Start Date End Date Caitlyn Bowie MD [address] [address] PCP - General Internal Medicine 05/06/21 Henry Kelly MD Pulmonary Department 175 [facility], [address] [place] [address] Physician Pulmonary Disease 09/06/17 06/22/20 documented as of this encounter
--- OUTSIDE RECORDS SUMMARY | 2025-05-22 12:27 | XMS_ITS | Encounter Summary ---
Author Organization [facility] and [facility] Address [address] [place] [address] Care Team Providers Care Bookmobile Clerk Name Role Phone Caitlyn Bowie MD Primary Care Provider +1- [phone] Encounter Details Date Type Department Care Team ([facility] st Contact Info) Description 01/26/2018 Scanned Document [facility] Health Information Management [address] [place] [address] External, Provider Social History Tobacco Use Types [...] documented as of this encounter Care Teams Bookmobile Clerk Relationship Specialty Start Date End Date Caitlyn Bowie MD 3400 [facility] 1 [place] [address] PCP - General Internal Medicine 05/06/21 Henry Kelly MD Pulmonary Department 175 [facility], [address] [place] [address] Physician Pulmonary Disease 09/06/17 06/22/20 documented as of this encounter
--- OUTSIDE RECORDS SUMMARY | 2025-05-22 12:27 | XMS_ITS | Encounter Summary ---
Author Organization [facility] Address [address] [place] [address] Care Team Providers Care Motor Vehicle Light Assembler Name Role Phone Caitlyn Bowie MD Primary Care Provider +1- [phone] Encounter Details Date Type Department Care Team (Late st Contact Info) Description 12/21/2020 Scanned Document INTERFACE DEFAULT [address] [place] [address] System, Provider Not In Social History Tobacco [...] as of this encounter Care Teams Motor Vehicle Light Assembler Relationship Specialty Start Date End Date Caitlyn Bowie MD [address] [address] PCP - General Internal Medicine 05/06/21 documented as of this encounter
--- OUTSIDE RECORDS SUMMARY | 2025-05-22 12:27 | XMS_ITS | Encounter Summary ---
Author Organization [facility] and [facility] Address [address] [place] [address] Care Team Providers Care Ship Purser Name Role Phone Caitlyn Bowie MD Primary Care Provider +1- [phone] Encounter Details Date Type Department Care Team ([facility] st Contact Info) Description 06/25/2015 Scanned Document [facility] Health Information Management [address] [place] [address] External, Provider Social History Tobacco Use Types [...] as of this encounter Care Teams Ship Purser Relationship Specialty Start Date End Date Caitlyn Bowie MD [address] [address] PCP - General Internal Medicine 05/06/21 Henry Kelly MD Pulmonary Department 175 [facility], [address] [place] [address] Physician Pulmonary Disease 09/06/17 06/22/20 documented as of this encounter
--- OUTSIDE RECORDS SUMMARY | 2025-05-22 12:27 | XMS_ITS | Encounter Summary ---
Author Organization [facility] and [facility] Address [address] [place] [address] Care Team Providers Care Statistical Machine Servicer Name Role Phone Caitlyn Bowie MD Primary Care Provider +1- [phone] Encounter Details Date Type Department Care Team (Late st Contact Info) Description 01/30/2018 Scanned Document [facility] Health Information Management [address] [place] [address] External, Provider Social History Tobacco Use Types [...] as of this encounter Care Teams Statistical Machine Servicer Relationship Specialty Start Date End Date Caitlyn Bowie MD 3400 [facility] 1 [place] [address] PCP - General Internal Medicine 05/06/21 Henry Kelly MD Pulmonary Department [address] [place] [address], [address] [place] [address] Physician Pulmonary Disease 09/06/17 06/22/20 documented as of this encounter
--- OUTSIDE RECORDS SUMMARY | 2025-05-22 12:27 | XMS_ITS | Encounter Summary ---
Author Organization [facility] Address [address] [place] [address] Care Team Providers Care Instructional Support Assistant Name Role Phone Caitlyn Bowie MD Primary Care Provider +1- [phone] Encounter Details Date Type Department Care Team (Late st Contact Info) Description 12/04/2014 Scanned Document [facility] Health Information Management [address] [place] [address] External, Provider Social History Tobacco Use Types [...] Final Res ult [facility] [place], [place], [facility] documented in this encounter Visit Diagnoses Not on filedocumented in this encounter Additional Health Concerns Infection Onset Date Last Indicated Resolved Time COVID-19 03/05/2022 03/05/2022 03/15/2022 7:18 PM EDT documented as of this encounter Care Teams Instructional Support Assistant Relationship Specialty Start Date End Date Caitlyn Bowie MD 3400 [facility] 1 [place] [address] PCP - General Internal Medicine 05/06/21 Henry Kelly MD Pulmonary Department 175 [facility], [address] [place] [address] Physician Pulmonary Disease 09/06/17 06/22/20 documented as of this encounter
--- OUTSIDE RECORDS SUMMARY | 2025-05-22 12:27 | XMS_ITS | Encounter Summary ---
Author Organization [facility] and [facility] Address [address] [place] [address] Care Team Providers Care Program Management Intern Name Role Phone Caitlyn Bowie MD Primary Care Provider +1- [phone] Encounter Details Date Type Department Care Team ([facility] st Contact Info) Description 01/26/2018 Scanned Document [facility] Health Information Management [address] [place] [address] External, Provider Social History Tobacco Use Types [...] of this encounter Care Teams Program Management Intern Relationship Specialty Start Date End Date Caitlyn Bowie MD 3400 [facility] 1 [place] [address] PCP - General Internal Medicine 05/06/21 Henry Kelly MD Pulmonary Department 175 [facility], [address] [place] [address] Physician Pulmonary Disease 09/06/17 06/22/20 documented as of this encounter
--- OUTSIDE RECORDS SUMMARY | 2025-05-22 12:27 | XMS_ITS | Encounter Summary ---
Author Organization [facility] Address [address] [place] [address] Care Team Providers Care Goggles Assembler Name Role Phone Caitlyn Bowie MD Primary Care Provider +1- [phone] Encounter Details Date Type Department Care Team (Late st Contact Info) Description 01/27/2018 Scanned Document [facility] Health Information Management [address] [place] [address] External, Provider Social History Tobacco Use Types [...] documented as of this encounter Care Teams Goggles Assembler Relationship Specialty Start Date End Date Caitlyn Bowie MD 3400 [facility] 1 [place] [address] PCP - General Internal Medicine 05/06/21 Henry Kelly MD Pulmonary Department 175 [facility], [address] [place] [address] Physician Pulmonary Disease 09/06/17 06/22/20 documented as of this encounter
--- OUTSIDE RECORDS SUMMARY | 2025-05-22 12:27 | XMS_ITS | Encounter Summary ---
Author Organization [facility] and [facility] Address [address] [place] [address] Care Team Providers Care Product Development Coordinator Name Role Phone Caitlyn Bowie MD Primary Care Provider +1- [phone] Encounter Details Date Type Department Care Team ([facility] st Contact Info) Description 01/26/2018 Scanned Document [facility] Health Information Management [address] [place] [address] External, Provider Social History Tobacco Use Types [...] of this encounter Care Teams Product Development Coordinator Relationship Specialty Start Date End Date Caitlyn Bowie MD [address] [facility] 1 [place] [address] PCP - General Internal Medicine 05/06/21 Henry Kelly MD Pulmonary Department 175 [facility], [address] [place] [address] Physician Pulmonary Disease 09/06/17 06/22/20 documented as of this encounter
--- OUTSIDE RECORDS SUMMARY | 2025-05-22 12:27 | XMS_ITS | Encounter Summary ---
Author Organization [facility] and [facility] Address [address] [place] [address] Care Team Providers Care Supervisor Grading Name Role Phone Caitlyn Bowie MD Primary Care Provider +1- [phone] Encounter Details Date Type Department Care Team ([facility] st Contact Info) Description 08/26/2014 Documentation [facility] [address] [place] [address] Shilpi Ibarra [address] [place] [address] Social History Tobacco Use Types Packs/Day Years [...] note were not included. [facility] Progress Note This is a 69 [...] as of this encounter Care Teams Supervisor Grading Relationship Specialty Start Date End Date Caitlyn Bowie MD 3400 [facility] 1 [place] [address] PCP - General Internal Medicine 05/06/21 Henry Kelly MD Pulmonary Department 175 [facility], [address] [place] [address] Physician Pulmonary Disease 09/06/17 06/22/20 documented as of this encounter
--- OUTSIDE RECORDS SUMMARY | 2025-05-22 12:27 | XMS_ITS | Encounter Summary ---
Author Organization [facility] and [facility] Address [address] [place] [address] Care Team Providers Care Director Database Name Role Phone Caitlyn Bowie MD Primary Care Provider +1- [phone] Encounter Details Date Type Department Care Team (Late st Contact Info) Description 03/11/2015 Scanned Document [facility] Health Information Management [address] [place] [address] External, Provider Social History Tobacco Use Types [...] - Final [facility] [place], [place], [place] documented in this encounter Visit Diagnoses Not on filedocumented in this encounter Additional Health Concerns Infection Onset Date Last Indicated Resolved Time COVID-19 03/05/2022 03/05/2022 03/15/2022 7:18 PM EDT documented as of this encounter Care Teams Director Database Relationship Specialty Start Date End Date Caitlyn Bowie MD 3400 [facility] 1 [place] [address] PCP - General Internal Medicine 05/06/21 Henry Kelly MD Pulmonary Department [address] [place] [address], [address] [place] [address] Physician Pulmonary Disease 09/06/17 06/22/20 documented as of this encounter
--- OUTSIDE RECORDS SUMMARY | 2025-05-22 12:28 | XMS_ITS | Encounter Summary ---
Author Organization [facility] and [facility] Address [address] [place] [address] Care Team Providers Care Jig Grinder Set Up Operator Name Role Phone Caitlyn Bowie MD Primary Care Provider +1- [phone] Reason for Visit * Reason Comments Advice Only Encounter Details Date Type Department Care Team ([facility] st Contact Info) Description 06/01/2021 Telephone [facility] [address] [id number] Ronald Mills MD [address] [place] [phone] Advice Only Social History Tobacco Use [...] added that she's called before and sent [employer] messages but hasn't received a reply,[phone]. documented in this encounter Plan of Treatment Not on file documented as of this encounter Visit Diagnoses Not on filedocumented in this encounter Additional Health Concerns Infection Onset Date Last Indicated Resolved Time COVID-19 03/05/2022 03/05/2022 03/15/2022 7:18 PM EDT Assessment Noted Time PHQ-9 Depression Total Score: 2 11/07/19 19 2:06 PM EDT documented as of this encounter Care Teams Jig Grinder Set Up Operator Relationship Specialty Start Date End Date Caitlyn Bowie MD [facility] [address] [address] PCP - General Internal Medicine 05/06/21 documented as of this encounter
--- OUTSIDE RECORDS SUMMARY | 2025-05-22 12:28 | XMS_ITS | Encounter Summary ---
Author Organization [facility] and [facility] Address [address] [place] [address] Care Team Providers Care Kardex Clerk Name Role Phone Caitlyn Bowie MD Primary Care Provider +1- [phone] Encounter Details Date Type Department Care Team (Late st Contact Info) Description 09/09/2021 Scanned Document INTERFACE DEFAULT [address] [place] [address] System, Provider Not In Social History [...] documented as of this encounter Care Teams Kardex Clerk Relationship Specialty Start Date End Date Caitlyn Bowie MD [address] [address] PCP - General Internal Medicine 05/06/21 documented as of this encounter
--- OUTSIDE RECORDS SUMMARY | 2025-05-22 12:28 | XMS_ITS | Encounter Summary ---
Author Organization [facility] and [facility] Address [address] [place] [address] Care Team Providers Care Demonstrator Sewing Techniques Name Role Phone Caitlyn Bowie MD Primary Care Provider +1- [phone] Encounter Details Date Type Department Care Team ([facility] st Contact Info) Description 09/24/2021 Scanned Document INTERFACE DEFAULT [address] [place] [address] System, Provider Not In Social History Tobacco [...] documented as of this encounter Care Teams Demonstrator Sewing Techniques Relationship Specialty Start Date End Date Caitlyn Bowie MD [address] [address] PCP - General Internal Medicine 05/06/21 documented as of this encounter
--- OUTSIDE RECORDS SUMMARY | 2025-05-22 12:28 | XMS_ITS | Encounter Summary ---
Author Organization [facility] and [facility] Address [address] [place] [address] Care Team Providers Care Tetryl Dissolver Operator Name Role Phone Caitlyn Bowie MD Primary Care Provider +1- [phone] Encounter Details Date Type Department Care Team (Late st Contact Info) Description 09/10/2021 Scanned Document Cardiovascular Medicine at 175 [facility] 175 [facility] THIRD [place], [place] [address] Norma Renee MD [address] [place] [phone] Social History Tobacco Use Types Packs/Day Years [...] as of this encounter Care Teams Tetryl Dissolver Operator Relationship Specialty Start Date End Date Caitlyn Bowie MD [address] [address] PCP - General Internal Medicine 05/06/21 documented as of this encounter
--- OUTSIDE RECORDS SUMMARY | 2025-05-22 12:28 | XMS_ITS | Encounter Summary ---
Author Organization [facility] and [facility] Address [address] [place] [address] Care Team Providers Care General Warehouse Worker Name Role Phone Caitlyn Bowie MD Primary Care Provider +1- [phone] Encounter Details Date Type Department Care Team (Late st Contact Info) Description 11/19/2021 Scanned Document Cardiovascular Medicine at [address] [place] [address] Norma Renee MD [address] [place] [phone] Social History Tobacco Use Types Packs/Day [...] End Date Caitlyn Bowie MD [address] [address] PCP - General Internal Medicine 05/06/21 documented as of this encounter
--- OUTSIDE RECORDS SUMMARY | 2025-05-22 12:28 | XMS_ITS | Encounter Summary ---
Author Organization [facility] and [facility] Address [address] [place] [address] Care Team Providers Care Industrial Relations Specialist Name Role Phone Caitlyn Bowie MD Primary Care Provider +1- [phone] Encounter Details Date Type Department Care Team (Late st Contact Info) Description 07/30/2018 Scanned Document [facility] Health Information Management [address] [place] [address] External, Provider Social History Tobacco Use Types [...] as of this encounter Care Teams Industrial Relations Specialist Relationship Specialty Start Date End Date Caitlyn Bowie MD 3400 [facility] 1 [place] [address] PCP - General Internal Medicine 05/06/21 Henry Kelly MD Pulmonary Department [address] [place] [address], [address] [place] [address] Physician Pulmonary Disease 09/06/17 06/22/20 documented as of this encounter
--- OUTSIDE RECORDS SUMMARY | 2025-05-22 12:28 | XMS_ITS | Encounter Summary ---
Author Organization [facility] and [facility] Address [address] [place] [address] Care Team Providers Care Inside Meter Tester Name Role Phone Caitlyn Bowie MD Primary Care Provider +1- [phone] Encounter Details Date Type Department Care Team ([facility] st Contact Info) Description 04/25/2021 Scanned Document INTERFACE DEFAULT [address] [place] [address] System, Provider Not In Social History Tobacco [...] as of this encounter Care Teams Inside Meter Tester Relationship Specialty Start Date End Date Caitlyn Bowie MD [address] [address] PCP - General Internal Medicine 05/06/21 documented as of this encounter
--- OUTSIDE RECORDS SUMMARY | 2025-05-22 12:28 | XMS_ITS | Encounter Summary ---
Author Organization [facility] and [facility] Address [address] [place] [address] Care Team Providers Care Sugar Drier Name Role Phone Caitlyn Bowie MD Primary Care Provider +1- [phone] Encounter Details Date Type Department Care Team ([facility] st Contact Info) Description 10/29/2021 Scanned Document [facility] Health Information Management [address] [place] [address] External, Provider Social History Tobacco Use Types [...] as of this encounter Care Teams Sugar Drier Relationship Specialty Start Date End Date Caitlyn Bowie MD [address] [address] PCP - General Internal Medicine 05/06/21 documented as of this encounter
--- OUTSIDE RECORDS SUMMARY | 2025-05-22 12:28 | XMS_ITS | Encounter Summary ---
Author Organization [facility] and [facility] Address [address] [place] [address] Care Team Providers Care Campground Caretaker Name Role Phone Caitlyn Bowie MD Primary Care Provider +1- [phone] Encounter Details Date Type Department Care Team (Late st Contact Info) Description 11/18/2021 Scanned Document INTERFACE DEFAULT [address] [place] [address] System, Provider Not In Social History Tobacco [...] End Date Caitlyn Bowie MD [address] [address] PCP - General Internal Medicine 05/06/21 documented as of this encounter
--- OUTSIDE RECORDS SUMMARY | 2025-05-22 12:28 | XMS_ITS | Encounter Summary ---
Author Organization [facility] and [facility] Address [address] [place] [address] Care Team Providers Care Marketing Account Executive Name Role Phone Caitlyn Bowie MD Primary Care Provider +1- [phone] Encounter Details Date Type Department Care Team (Late st Contact Info) Description 07/28/2018 Scanned Document [facility] Health Information Management [address] [place] [address] External, Provider Social History Tobacco Use Types [...] Bowie MD 3400 [facility] 1 [place] [address] PCP - General Internal Medicine 05/06/21 Henry Kelly MD Pulmonary Department [address] [place] [address], [address] [place] [address] Physician Pulmonary Disease 09/06/17 06/22/20 documented as of this encounter
--- OUTSIDE RECORDS SUMMARY | 2025-05-22 12:28 | XMS_ITS | Encounter Summary ---
Author Organization [facility] and [facility] Address [address] [place] [address] Care Team Providers Care Buncher Operator Name Role Phone Caitlyn Bowie MD Primary Care Provider +1- [phone] Encounter Details Date Type Department Care Team ([facility] st Contact Info) Description 07/26/2018 Scanned Document [facility] Health Information Management [address] [place] [address] External, Provider Social History Tobacco Use Types [...] as of this encounter Care Teams Buncher Operator Relationship Specialty Start Date End Date Caitlyn Bowie MD 3400 [facility] 1 [place] [address] PCP - General Internal Medicine 05/06/21 Henry Kelly MD Pulmonary Department 175 [facility], [address] [place] [address] Physician Pulmonary Disease 09/06/17 06/22/20 documented as of this encounter
--- OUTSIDE RECORDS SUMMARY | 2025-05-22 12:28 | XMS_ITS | Encounter Summary ---
Author Organization [facility] Address [address] [place] [address] Care Team Providers Care Operations Lead Name Role Phone Caitlyn Bowie MD Primary Care Provider +1- [phone] Reason for Visit * Reason Comments Triage Encounter Details Date Type Department Care Team (Late st Contact Info) Description 10/18/2021 Telephone [facility] at [address] - [address] [phone] Ronald Mills MD [address] [place] [phone] Triage Social History Tobacco Use Types [...] pt, pt notified. * Telephone Encounter - aNsima Wang - 10/18/2021 1:52 PM EDT Pt [...] as of this encounter Care Teams Operations Lead Relationship Specialty Start Date End Date Caitlyn Bowie MD [address] [place] [address] [address] PCP - General Internal Medicine 05/06/21 documented as of this encounter
--- OUTSIDE RECORDS SUMMARY | 2025-05-22 12:28 | XMS_ITS | Encounter Summary ---
Author Organization [facility] and [facility] Address [address] [place] [address] Care Team Providers Care Curtain Cutter Name Role Phone Caitlyn Bowie MD Primary Care Provider +1- [phone] Encounter Details Date Type Department Care Team ([facility] st Contact Info) Description 04/24/2021 Scanned Document INTERFACE DEFAULT [address] [place] [address] System, Provider Not In Social History Tobacco [...] as of this encounter Care Teams Curtain Cutter Relationship Specialty Start Date End Date Caitlyn Bowie MD [address] [address] PCP - General Internal Medicine 05/06/21 documented as of this encounter
--- OUTSIDE RECORDS SUMMARY | 2025-05-22 12:28 | XMS_ITS | Encounter Summary ---
Author Organization [facility] and [facility] Address [address] [place] [address] Care Team Providers Care Power Tong Operator Name Role Phone Caitlyn Bowie MD Primary Care Provider +1- [phone] Encounter Details Date Type Department Care Team (Late st Contact Info) Description 05/17/2021 Scanned Document [facility] at [address] [address] External, Provider Social History Tobacco Use Types [...] as of this encounter Care Teams Power Tong Operator Relationship Specialty Start Date End Date Caitlyn Bowie MD [address] [address] PCP - General Internal Medicine 05/06/21 documented as of this encounter
--- OUTSIDE RECORDS SUMMARY | 2025-05-22 12:28 | XMS_ITS | Encounter Summary ---
Author Organization [facility] Address [address] [place] [address] Care Team Providers Care Nurse Informaticist Name Role Phone Caitlyn Bowie MD Primary Care Provider +1- [phone] Encounter Details Date Type Department Care Team ([facility] st Contact Info) Description 06/26/2018 Scanned Document [facility] Health Information Management [address] [place] [address] External, Provider Social History Tobacco Use Types [...] as of this encounter Care Teams Nurse Informaticist Relationship Specialty Start Date End Date Caitlyn Bowie MD [address] [address] PCP - General Internal Medicine 05/06/21 Henry Kelly MD Pulmonary Department 175 [facility], [address] [place] [address] Physician Pulmonary Disease 09/06/17 06/22/20 documented as of this encounter
--- OUTSIDE RECORDS SUMMARY | 2025-05-22 12:28 | XMS_ITS | Encounter Summary ---
Author Organization [facility] and [facility] Address [address] [place] [address] Care Team Providers Care Explosive Ordnance Disposal Specialist Name Role Phone Caitlyn Bowie MD Primary Care Provider +1- [phone] Encounter Details Date Type Department Care Team (Late st Contact Info) Description 06/07/2021 Scanned Document [facility] at [address] [place] [address] Norma Renee MD [address] [place] [address] 2 [place] [phone] Social History Tobacco Use Types Packs/Day Years [...] as of this encounter Care Teams Explosive Ordnance Disposal Specialist Relationship Specialty Start Date End Date Caitlyn Bowie MD [address] [address] PCP - General Internal Medicine 05/06/21 documented as of this encounter
--- OUTSIDE RECORDS SUMMARY | 2025-05-22 12:28 | XMS_ITS | Encounter Summary ---
Author Organization [facility] Address [address] [place] [address] Phone Care Team Providers Care Drug Regulatory Affairs Specialist Name Role Phone Caitlyn Bowie MD Primary Care Provider +1- [phone] Encounter Details Date Type Department Care Team (Late Contact Info) Description 03/17/2025 Documentation Only [facility] [address] [place] [address] Marina Abdi [address] [place], [place] [...] [facility] [address] [place] [address] Rubén Ashraf MD [address] [place] [address] [place] [address] documented as of this encounter Visit Diagnoses Not on filedocumented in this encounter Care Teams Drug Regulatory Affairs Specialist Relationship Specialty Start Date End Date Caitlyn Bowie MD 3400 [place], [place] PCP - General Internal Medicine 09/24/24 documented as of this encounter
--- OUTSIDE RECORDS SUMMARY | 2025-05-22 12:28 | XMS_ITS | Encounter Summary ---
Author Organization [facility] Address [address] [place] [address] Care Team Providers Care Charter Driver Name Role Phone Caitlyn Bowie MD Primary Care Provider +1- [phone] Encounter Details Date Type Department Care Team ([facility] st Contact Info) Description 10/08/2021 Scanned Document INTERFACE DEFAULT [address] [place] [address] System, Provider Not In Social History Tobacco [...] End Date Caitlyn Bowie MD [address] [address] PCP - General Internal Medicine 05/06/21 documented as of this encounter
--- OUTSIDE RECORDS SUMMARY | 2025-05-22 12:28 | XMS_ITS | Encounter Summary ---
Author Organization [facility] Address [address] [place] [address] Care Team Providers Care Interim Controller Name Role Phone Caitlyn Bowie MD Primary Care Provider +1- [phone] Encounter Details Date Type Department Care Team ([facility] st Contact Info) Description 05/05/2021 Scanned Document INTERFACE DEFAULT [address] [place] [address] System, Provider Not In Social History Tobacco [...] documented as of this encounter Care Teams Interim Controller Relationship Specialty Start Date End Date Caitlyn Bowie MD [address] [address] PCP - General Internal Medicine 05/06/21 documented as of this encounter
--- OUTSIDE RECORDS SUMMARY | 2025-05-22 12:28 | XMS_ITS | Encounter Summary ---
Author Organization [facility] and [facility] Address [address] [place] [address] Care Team Providers Care Pet Food Deboner Name Role Phone Caitlyn Bowie MD Primary Care Provider +1- [phone] Encounter Details Date Type Department Care Team (Late st Contact Info) Description 09/23/2021 Scanned Document INTERFACE DEFAULT [address] [place] [address] System, Provider Not In Social History Tobacco [...] End Date Caitlyn Bowie MD [address] [address] PCP - General Internal Medicine 05/06/21 documented as of this encounter
--- OUTSIDE RECORDS SUMMARY | 2025-05-22 12:28 | XMS_ITS | Encounter Summary ---
Author Organization [facility] and [facility] Address [address] [place] [address] Care Team Providers Care Cloth Worker Name Role Phone Caitlyn Bowie MD Primary Care Provider +1- [phone] Encounter Details Date Type Department Care Team ([facility] st Contact Info) Description 10/15/2018 Scanned Document [facility] Health Information Management [address] [place] [address] External, Provider Social History Tobacco Use Types [...] as of this encounter Care Teams Cloth Worker Relationship Specialty Start Date End Date Caitlyn Bowie MD [address] [address] PCP - General Internal Medicine 05/06/21 Henry Kelly MD Pulmonary Department 175 [facility], [address] [place] [address] Physician Pulmonary Disease 09/06/17 06/22/20 documented as of this encounter
--- OUTSIDE RECORDS SUMMARY | 2025-05-22 12:28 | XMS_ITS | Encounter Summary ---
Author Organization [facility] Address [address] [place] [address] Care Team Providers Care Outbound Telemarketing Representative Name Role Phone Caitlyn Bowie MD Primary Care Provider +1- [phone] Encounter Details Date Type Department Care Team ([facility] st Contact Info) Description 09/07/2021 Scanned Document INTERFACE DEFAULT [address] [place] [address] System, Provider Not In Social History Tobacco [...] as of this encounter Care Teams Outbound Telemarketing Representative Relationship Specialty Start Date End Date Caitlyn Bowie MD [address] [address] PCP - General Internal Medicine 05/06/21 documented as of this encounter
--- OUTSIDE RECORDS SUMMARY | 2025-05-22 12:28 | XMS_ITS | Encounter Summary ---
Author Organization [facility] Address [address] [place] [address] Care Team Providers Care Eyelet Punch Operator Name Role Phone Caitlyn Bowie MD Primary Care Provider +1- [phone] Encounter Details Date Type Department Care Team (Late st Contact Info) Description 06/07/2021 Scanned Document [facility] at [address] [address] External, Provider Social History Tobacco Use Types [...] as of this encounter Care Teams Eyelet Punch Operator Relationship Specialty Start Date End Date Caitlyn Bowie MD [address] [address] PCP - General Internal Medicine 05/06/21 documented as of this encounter
--- OUTSIDE RECORDS SUMMARY | 2025-05-22 12:28 | XMS_ITS | Encounter Summary ---
Author Organization [facility] Address [address] [place] [address] Care Team Providers Care Play Back Operator Name Role Phone Caitlyn Bowie MD Primary Care Provider +1- [phone] Encounter Details Date Type Department Care Team ([facility] st Contact Info) Description 04/28/2021 Scanned Document INTERFACE DEFAULT [address] [place] [address] System, Provider Not In Social History Tobacco [...] documented as of this encounter Care Teams Play Back Operator Relationship Specialty Start Date End Date Caitlyn Bowie MD [address] [address] PCP - General Internal Medicine 05/06/21 documented as of this encounter
--- OUTSIDE RECORDS SUMMARY | 2025-05-22 12:28 | XMS_ITS | Encounter Summary ---
Author Organization [facility] and [facility] Address [address] [place] [address] Care Team Providers Care Pony Roll Finisher Name Role Phone Caitlyn Bowie MD Primary Care Provider +1- [phone] Encounter Details Date Type Department Care Team (Late st Contact Info) Description 06/07/2021 Scanned Document [facility] at [address] [place] [address] Norma Renee MD [address] [place] [address] 2 [place] [phone] Social History Tobacco Use Types Packs/Day Years [...] as of this encounter Care Teams Pony Roll Finisher Relationship Specialty Start Date End Date Caitlyn Bowie MD [address] [address] PCP - General Internal Medicine 05/06/21 documented as of this encounter
--- OUTSIDE RECORDS SUMMARY | 2025-05-22 12:28 | XMS_ITS | Encounter Summary ---
Author Organization [facility] and [facility] Address [address] [place] [address] Care Team Providers Care Dumper Central Concrete Mixing Plant Name Role Phone Caitlyn Bowie MD Primary Care Provider +1- [phone] Encounter Details Date Type Department Care Team ([facility] st Contact Info) Description 04/27/2021 Scanned Document INTERFACE DEFAULT [address] [place] [address] System, Provider Not In Social History Tobacco [...] documented as of this encounter Care Teams Dumper [employer] Mixing [employer] Relationship Specialty Start Date End Date Caitlyn Bowie MD [facility] [address] [address] PCP - General Internal Medicine 05/06/21 documented as of this encounter
--- OUTSIDE RECORDS SUMMARY | 2025-05-22 12:28 | XMS_ITS | Encounter Summary ---
Author Organization [facility] and [facility] Address [address] [place] [address] Care Team Providers Care Digital Media Analyst Name Role Phone Caitlyn Bowie MD Primary Care Provider +1- [phone] Encounter Details Date Type Department Care Team ([facility] st Contact Info) Description 08/07/2018 Scanned Document [facility] Health Information Management [address] [place] [address] External, Provider Social History Tobacco Use Types [...] of this encounter Care Teams Digital Media Analyst Relationship Specialty Start Date End Date Caitlyn Bowie MD [address] [phone] PCP - General Internal Medicine 05/06/21 Henry Kelly MD Pulmonary Department 175 [facility], [address] [place] [address] Physician Pulmonary Disease 09/06/17 06/22/20 documented as of this encounter
--- OUTSIDE RECORDS SUMMARY | 2025-05-22 12:28 | XMS_ITS | Encounter Summary ---
Author Organization [place] [facility] Address [address] [place] [address] Care Team Providers Care Assistant Corporation Counsel Name Role Phone Caitlyn Bowie MD Primary Care Provider +1- [phone] Encounter Details Date Type Department Care Team (Late st Contact Info) Description 05/27/2021 Telephone [facility] at [address] [address] Ronald Mills MD [address] [place] [phone] Social History Tobacco Use Types Packs/Day [...] as of this encounter Care Teams Assistant Corporation Counsel Relationship Specialty Start Date End Date Caitlyn Bowie MD [address] [address] PCP - General Internal Medicine 05/06/21 documented as of this encounter
--- OUTSIDE RECORDS SUMMARY | 2025-05-22 12:28 | XMS_ITS | Encounter Summary ---
Author Organization [facility] and [facility] Address [address] [place] [address] Care Team Providers Care Summer Child Caregiver Name Role Phone Caitlyn Bowie MD Primary Care Provider +1- [phone] Encounter Details Date Type Department Care Team ([facility] st Contact Info) Description 06/08/2021 Scanned Document INTERFACE DEFAULT [address] [place] [address] System, Provider Not In Social History Tobacco [...] as of this encounter Care Teams Summer Child Caregiver Relationship Specialty Start Date End Date Caitlyn Bowie MD [address] [address] PCP - General Internal Medicine 05/06/21 documented as of this encounter
--- OUTSIDE RECORDS SUMMARY | 2025-05-22 12:28 | XMS_ITS | Encounter Summary ---
Author Organization [facility] and [facility] Address [address] [place] [address] Care Team Providers Care Furnace Cleaner Name Role Phone Caitlyn Bowie MD Primary Care Provider +1- [phone] Encounter Details Date Type Department Care Team ([facility] st Contact Info) Description 04/29/2021 Scanned Document INTERFACE DEFAULT [address] [place] [address] System, Provider Not In Social History Tobacco [...] documented as of this encounter Care Teams Furnace Cleaner Relationship Specialty Start Date End Date Caitlyn Bowie MD [address] [address] PCP - General Internal Medicine 05/06/21 documented as of this encounter
--- OUTSIDE RECORDS SUMMARY | 2025-05-22 12:28 | XMS_ITS | Encounter Summary ---
Author Organization [facility] and [facility] Address [address] [place] [address] Care Team Providers Care Laminator Hand Name Role Phone Caitlyn Bowie MD Primary Care Provider +1- [phone] Encounter Details Date Type Department Care Team ([facility] st Contact Info) Description 04/26/2021 Scanned Document INTERFACE DEFAULT [address] [place] [address] System, Provider Not In Social History Tobacco [...] End Date Caitlyn Bowie MD [address] [address] PCP - General Internal Medicine 05/06/21 documented as of this encounter
--- OUTSIDE RECORDS SUMMARY | 2025-05-22 12:29 | XMS_ITS | Encounter Summary ---
Author Organization [facility] and [facility] Address [address] [place] [address] Care Team Providers Care Bulbs Farmworker Name Role Phone Caitlyn Bowie MD Primary Care Provider +1- [phone] Encounter Details Date Type Department Care Team ([facility] st Contact Info) Description 07/06/2021 Scanned Document INTERFACE DEFAULT [address] [place] [address] System, Provider Not In Social History Tobacco [...] documented as of this encounter Care Teams Bulbs Farmworker Relationship Specialty Start Date End Date Caitlyn Bowie MD [address] [address] PCP - General Internal Medicine 05/06/21 documented as of this encounter
--- OUTSIDE RECORDS SUMMARY | 2025-05-22 12:29 | XMS_ITS | Encounter Summary ---
Author Organization [facility] Address [address] [place] [address] Phone Care Team Providers Care Store Team Member Name Role Phone Caitlyn Bowie MD Primary Care Provider +1- [phone] Encounter Details Date Type Department Care Team (Late st Contact Info) Description 10/10/2024 Documentation Only [facility] [address] [place] [address] Ron [place] [address] [place] [address] Social History Tobacco Use Types [...] [facility] [address] [place] [address] Rubén Ashraf MD [address] [place] [address] [place] [address] documented as of this encounter Visit Diagnoses Not on filedocumented in this encounter Care Teams Store Team Member Relationship Specialty Start Date End Date Caitlyn Bowie MD [address] [place] PCP - General Internal Medicine 09/24/24 documented as of this encounter
--- OUTSIDE RECORDS SUMMARY | 2025-05-22 12:29 | XMS_ITS | Encounter Summary ---
Author Organization [facility] and [facility] Address [address] [place] [address] Care Team Providers Care Supervisor Sign Shop Name Role Phone Caitlyn Bowie MD Primary Care Provider +1- [phone] Encounter Details Date Type Department Care Team (Late st Contact Info) Description 09/24/2015 Scanned Document [facility] [address] [phone] Kevin Espinoza MD [address] [place] [phone] Social History Tobacco Use Types Packs/Day [...] as of this encounter Care Teams Supervisor Sign Shop Relationship Specialty Start Date End Date Caitlyn Bowie MD [address] [address] PCP - General Internal Medicine 05/06/21 Henry Kelly MD Pulmonary Department [address] [place] [address], [address] [place] [address] Physician Pulmonary Disease 09/06/17 06/22/20 documented as of this encounter
--- OUTSIDE RECORDS SUMMARY | 2025-05-22 12:29 | XMS_ITS | Encounter Summary ---
Author Organization [facility] Address [address] [place] [address] Care Team Providers Care Senior Mechanical Project Manager Name Role Phone Caitlyn Bowie MD Primary Care Provider +1- [phone] Encounter Details Date Type Department Care Team ([facility] st Contact Info) Description 05/17/2023 Scanned Document INTERFACE DEFAULT [address] [place] [address] System, Provider Not In Social History Tobacco [...] this encounter Care Teams Senior Mechanical Project Manager Relationship Specialty Start Date End Date Caitlyn Bowie MD [facility] [address] [address] PCP - General Internal Medicine 05/06/21 documented as of this encounter
--- OUTSIDE RECORDS SUMMARY | 2025-05-22 12:29 | XMS_ITS | Encounter Summary ---
Author Organization [facility] and [facility] Address [address] [place] [address] Care Team Providers Care Hammer Fitter Name Role Phone Caitlyn Bowie MD Primary Care Provider +1- [phone] Encounter Details Date Type Department Care Team (Late st Contact Info) Description 07/08/2022 Scanned Document Cardiovascular Medicine at 175 [facility] 175 [facility] THIRD [place], [place] [address] Norma Renee MD [address] [place] [phone] Social History Tobacco Use Types Packs/Day Years [...] as of this encounter Care Teams Hammer Fitter Relationship Specialty Start Date End Date Caitlyn Bowie MD [address] [address] PCP - General Internal Medicine 05/06/21 documented as of this encounter
--- OUTSIDE RECORDS SUMMARY | 2025-05-22 12:29 | XMS_ITS | Encounter Summary ---
Author Organization [facility] Address [address] [place] [address] Care Team Providers Care Auto Washer Name Role Phone Caitlyn Bowie MD Primary Care Provider +1- [phone] Encounter Details Date Type Department Care Team ([facility] st Contact Info) Description 04/20/2023 Scanned Document INTERFACE DEFAULT [address] [place] [address] System, Provider Not In Social History Tobacco [...] as of this encounter Care Teams Auto Washer Relationship Specialty Start Date End Date Caitlyn Bowie MD [address] [address] PCP - General Internal Medicine 05/06/21 documented as of this encounter
--- OUTSIDE RECORDS SUMMARY | 2025-05-22 12:29 | XMS_ITS | Encounter Summary ---
Author Organization [facility] and [facility] Address [address] [place] [address] Care Team Providers Care Slip Caster Name Role Phone Caitlyn Bowie MD Primary Care Provider +1- [phone] Encounter Details Date Type Department Care Team (Late st Contact Info) Description 12/23/2022 Scanned Document INTERFACE DEFAULT [address] [place] [address] System, Provider Not In Social History [...] as of this encounter Care Teams Slip Caster Relationship Specialty Start Date End Date Caitlyn Bowie MD [address] [address] PCP - General Internal Medicine 05/06/21 documented as of this encounter
--- OUTSIDE RECORDS SUMMARY | 2025-05-22 12:29 | XMS_ITS | Encounter Summary ---
Author Organization [facility] and [facility] Address [address] [place] [address] Care Team Providers Care Publishing Specialist Name Role Phone Caitlyn Bowie MD Primary Care Provider +1- [phone] Encounter Details Date Type Department Care Team (Late st Contact Info) Description 07/28/2022 Scanned Document [facility] at [address] [place] [address] Norma Renee MD [address] [place] [address] 2 [place] [phone] Social History Tobacco Use Types Packs/Day Years [...] documented as of this encounter Care Teams Publishing Specialist Relationship Specialty Start Date End Date Caitlyn Bowie MD [address] [address] PCP - General Internal Medicine 05/06/21 documented as of this encounter
--- OUTSIDE RECORDS SUMMARY | 2025-05-22 12:29 | XMS_ITS | Encounter Summary ---
Author Organization [facility] Address [address] [place] [address] Care Team Providers Care Storage Worker Name Role Phone Caitlyn Bowie MD Primary Care Provider +1- [phone] Encounter Details Date Type Department Care Team ([facility] st Contact Info) Description 06/21/2022 Scanned Document INTERFACE DEFAULT [address] [place] [address] System, Provider Not In Social History Tobacco [...] documented as of this encounter Care Teams Storage Worker Relationship Specialty Start Date End Date Caitlyn Bowie MD [address] [address] PCP - General Internal Medicine 05/06/21 documented as of this encounter
--- OUTSIDE RECORDS SUMMARY | 2025-05-22 12:29 | XMS_ITS | Encounter Summary ---
Author Organization [facility] Address [address] [place] [address] Care Team Providers Care Health And Safety Instructor Name Role Phone Caitlyn Bowie MD Primary Care Provider +1- [phone] Encounter Details Date Type Department Care Team ([facility] st Contact Info) Description 05/16/2023 Scanned Document INTERFACE DEFAULT [address] [place] [address] System, Provider Not In Social History Tobacco [...] of this encounter Care Teams Health And Safety Instructor Relationship Specialty Start Date End Date Caitlyn Bowie MD [address] [address] PCP - General Internal Medicine 05/06/21 documented as of this encounter
--- OUTSIDE RECORDS SUMMARY | 2025-05-22 12:29 | XMS_ITS | Encounter Summary ---
Author Organization [facility] Address [address] [place] [address] Care Team Providers Care Train Brakeman Name Role Phone Caitlyn Bowie MD Primary Care Provider +1- [phone] Encounter Details Date Type Department Care Team (Late st Contact Info) Description 06/23/2022 Scanned Document INTERFACE DEFAULT [address] [place] [address] System, Provider Not In Social History Tobacco [...] as of this encounter Care Teams Train Brakeman Relationship Specialty Start Date End Date Caitlyn Bowie MD [address] [address] PCP - General Internal Medicine 05/06/21 documented as of this encounter
--- OUTSIDE RECORDS SUMMARY | 2025-05-22 12:29 | XMS_ITS | Encounter Summary ---
Author Organization [facility] and [facility] Address [address] [place] [address] Care Team Providers Care Conditioning Coach Name Role Phone Caitlyn Bowie MD Primary Care Provider +1- [phone] Encounter Details Date Type Department Care Team (Late st Contact Info) Description 12/04/2018 Scanned Document [facility] Health Information Management [address] [place] [address] External, Provider Social History Tobacco Use Types [...] documented as of this encounter Care Teams Conditioning Coach Relationship Specialty Start Date End Date Caitlyn Bowie MD [address] [address] PCP - General Internal Medicine 05/06/21 Henry Kelly MD Pulmonary Department [address] [place] [address], [address] [place] [address] Physician Pulmonary Disease 09/06/17 06/22/20 documented as of this encounter
--- OUTSIDE RECORDS SUMMARY | 2025-05-22 12:29 | XMS_ITS | Encounter Summary ---
Author Organization [facility] and [facility] Address [address] [place] [address] Care Team Providers Care Jewelry Internship Name Role Phone Caitlyn Bowie MD Primary Care Provider +1- [phone] Encounter Details Date Type Department Care Team (Late st Contact Info) Description 08/23/2022 Abstract [facility] at [address] [facility] 800 [facility] 2nd [place] [address] Norma Renee MD [address] [place] [phone] Social History Tobacco Use Types Packs/Day Years [...] as of this encounter Care Teams Jewelry Internship Relationship Specialty Start Date End Date Caitlyn Bowie MD NPI: [id number] [place] [phone] PCP - General Internal Medicine 05/06/21 documented as of this encounter
--- OUTSIDE RECORDS SUMMARY | 2025-05-22 12:29 | XMS_ITS | Encounter Summary ---
Author Organization [facility] and [facility] Address [address] [place] [address] Care Team Providers Care Orthotic Assistant Name Role Phone Caitlyn Bowie MD Primary Care Provider +1- [phone] Encounter Details Date Type Department Care Team ([facility] st Contact Info) Description 07/22/2021 Scanned Document INTERFACE DEFAULT [address] [place] [address] System, Provider Not In Social History Tobacco [...] documented as of this encounter Care Teams Orthotic Assistant Relationship Specialty Start Date End Date Caitlyn Bowie MD [address] [address] PCP - General Internal Medicine 05/06/21 documented as of this encounter
--- OUTSIDE RECORDS SUMMARY | 2025-05-22 12:29 | XMS_ITS | Encounter Summary ---
Author Organization [facility] Address [address] [place] [address] Care Team Providers Care Store Hand Name Role Phone Caitlyn Bowie MD Primary Care Provider +1- [phone] Encounter Details Date Type Department Care Team ([facility] st Contact Info) Description 01/02/2024 Scanned Document INTERFACE DEFAULT [address] [place] [address] System, Provider Not In Social History Tobacco [...] as of this encounter Care Teams Store Hand Relationship Specialty Start Date End Date Caitlyn Bowie MD [address] [address] PCP - General Internal Medicine 05/06/21 documented as of this encounter
--- OUTSIDE RECORDS SUMMARY | 2025-05-22 12:29 | XMS_ITS | Encounter Summary ---
Author Organization [facility] Address [address] [place] [address] Care Team Providers Care Supervisor Shipping Room Name Role Phone Caitlyn Bowie MD Primary Care Provider +1- [phone] Encounter Details Date Type Department Care Team ([facility] st Contact Info) Description 06/20/2022 Scanned Document INTERFACE DEFAULT [address] [place] [address] System, Provider Not In Social History Tobacco [...] as of this encounter Care Teams Supervisor Shipping Room Relationship Specialty Start Date End Date Caitlyn Bowie MD [address] [address] PCP - General Internal Medicine 05/06/21 documented as of this encounter
--- OUTSIDE RECORDS SUMMARY | 2025-05-22 12:29 | XMS_ITS | Encounter Summary ---
Author Organization [facility] Address [address] [place] [address] Care Team Providers Care Head Pastry Chef Name Role Phone Caitlyn Bowie MD Primary Care Provider +1- [phone] Reason for Visit * Reason Comments Advice Only mass Encounter Details Date Type Department Care Team (Late st Contact Info) Description 09/06/2021 Telephone [facility] at [address] [address] Ronald Mills MD [address] [place] [phone] Advice Only (mass) Social History Tobacco [...] as of this encounter Care Teams Head Pastry Chef Relationship Specialty Start Date End Date Caitlyn Bowie MD [facility] [address] [address] PCP - General Internal Medicine 05/06/21 documented as of this encounter
--- OUTSIDE RECORDS SUMMARY | 2025-05-22 12:29 | XMS_ITS | Encounter Summary ---
Author Organization [facility] Address [address] [place] [address] Care Team Providers Care Rocket Test Fire Worker Name Role Phone Caitlyn Bowie MD Primary Care Provider +1- [phone] Encounter Details Date Type Department Care Team ([facility] st Contact Info) Description 04/19/2023 Scanned Document INTERFACE DEFAULT [address] [place] [address] System, Provider Not In Social History Tobacco [...] documented as of this encounter Care Teams Rocket Test Fire Worker Relationship Specialty Start Date End Date Caitlyn Bowie MD [address] [address] PCP - General Internal Medicine 05/06/21 documented as of this encounter
--- OUTSIDE RECORDS SUMMARY | 2025-05-22 12:29 | XMS_ITS | Encounter Summary ---
Author Organization [facility] Address [address] [place] [address] Care Team Providers Care Offset Platemaker Name Role Phone Caitlyn Bowie MD Primary Care Provider +1- [phone] Encounter Details Date Type Department Care Team (Late st Contact Info) Description 09/09/2015 Scanned Document [facility] Health Information Management [address] [place] [address] External, Provider Social History Tobacco Use Types [...] External LAB BLOOD ORDERABLES Final Res ult [facility] [place], [place], [facility] documented in this encounter Visit Diagnoses Not on filedocumented in this encounter Additional Health Concerns Infection Onset Date Last Indicated Resolved Time COVID-19 03/05/2022 03/05/2022 03/15/2022 7:18 PM EDT documented as of this encounter Care Teams Offset Platemaker Relationship Specialty Start Date End Date Caitlyn Bowie MD 3400 [facility] 1 [place] [address] PCP - General Internal Medicine 05/06/21 Henry Kelly MD Pulmonary Department 175 [facility], [address] [place] [address] Physician Pulmonary Disease 09/06/17 06/22/20 documented as of this encounter
--- OUTSIDE RECORDS SUMMARY | 2025-05-22 12:29 | XMS_ITS | Encounter Summary ---
Author Organization [facility] and [facility] Address [address] [place] [address] Care Team Providers Care Asset Protection Assistant Name Role Phone Caitlyn Bowie MD Primary Care Provider +1- [phone] Encounter Details Date Type Department Care Team ([facility] st Contact Info) Description 01/31/2023 Abstract [facility] 35 [facility] [address] [place] [address] Shilpi Romero RN Social History Tobacco Use [...] Start Date End Date Caitlyn Bowie MD [address] [address] PCP - General Internal Medicine 05/06/21 documented as of this encounter
--- OUTSIDE RECORDS SUMMARY | 2025-05-22 12:29 | XMS_ITS | Encounter Summary ---
Author Organization [facility] Address [address] [place] [address] [address] [place] [address] Phone Care Team Providers Care Compliance Nurse Name Role Phone Caitlyn Bowie MD Primary Care Provider +1- [phone] Encounter Details Date Type Department Care Team (Late st Contact Info) Description 08/30/2024 [facility] [address] [place] [address] [address] [place] [address] Adaglisa Whitney MD [address] [place] [address] [address] [place] [address] Social History Tobacco Use Types [...] as of this encounter Care Teams Compliance Nurse Relationship Specialty Start Date End Date Caitlyn Bowie MD [address] [address] PCP - General Internal Medicine 05/06/21 documented as of this encounter
--- OUTSIDE RECORDS SUMMARY | 2025-05-22 12:29 | XMS_ITS | Encounter Summary ---
Author Organization [facility] Address [address] [place] [address] Care Team Providers Care Graphics Production Specialist Name Role Phone Caitlyn Bowie MD Primary Care Provider +1- [phone] Encounter Details Date Type Department Care Team (Late st Contact Info) Description 09/01/2023 Scanned Document INTERFACE DEFAULT [address] [place] [address] System, Provider Not In Social History Tobacco [...] documented as of this encounter Care Teams Graphics Production Specialist Relationship Specialty Start Date End Date Caitlyn Bowie MD [address] [address] PCP - General Internal Medicine 05/06/21 documented as of this encounter
--- OUTSIDE RECORDS SUMMARY | 2025-05-22 12:29 | XMS_ITS | Encounter Summary ---
Author Organization [facility] Address [address] [place] [address] Care Team Providers Care Senior Research Project Manager Name Role Phone Caitlyn Bowie MD Primary Care Provider +1- [phone] Encounter Details Date Type Department Care Team (Late st Contact Info) Description 09/09/2015 Scanned Document [facility] Health Information Management [address] [place] [address] External, Provider Social History Tobacco Use Types [...] External LAB BLOOD ORDERABLES Final Res ult [facility] [place], [place], [place] documented in this encounter Visit Diagnoses Not on filedocumented in this encounter Additional Health Concerns Infection Onset Date Last Indicated Resolved Time COVID-19 03/05/2022 03/05/2022 03/15/2022 7:18 PM EDT documented as of this encounter Care Teams Senior Research Project Manager Relationship Specialty Start Date End Date Caitlyn Bowie MD 3400 [facility] 1 [place] [address] PCP - General Internal Medicine 05/06/21 Henry Kelly MD Pulmonary Department 175 [facility], [address] [place] [address] Physician Pulmonary Disease 09/06/17 06/22/20 documented as of this encounter
--- OUTSIDE RECORDS SUMMARY | 2025-05-22 12:29 | XMS_ITS | Encounter Summary ---
Author Organization [facility] Address [address] [place] [address] Care Team Providers Care Fence Laborer Name Role Phone Caitlyn Bowie MD Primary Care Provider +1- [phone] Encounter Details Date Type Department Care Team ([facility] st Contact Info) Description 06/27/2022 Scanned Document INTERFACE DEFAULT [address] [place] [address] System, Provider Not In Social History Tobacco [...] as of this encounter Care Teams Fence Laborer Relationship Specialty Start Date End Date Caitlyn Bowie MD [address] [address] PCP - General Internal Medicine 05/06/21 documented as of this encounter
--- OUTSIDE RECORDS SUMMARY | 2025-05-22 12:29 | XMS_ITS | Encounter Summary ---
Author Organization [facility] Address [address] [place] [address] Care Team Providers Care Mill Hand Name Role Phone Caitlyn Bowie MD Primary Care Provider +1- [phone] Encounter Details Date Type Department Care Team (Late st Contact Info) Description 09/09/2015 Scanned Document [facility] Health Information Management [address] [place] [address] External, Provider Social History Tobacco Use Types [...] External LAB BLOOD ORDERABLES Final Res ult [facility] [place], [place], [facility] documented in this encounter Visit Diagnoses Not on filedocumented in this encounter Additional Health Concerns Infection Onset Date Last Indicated Resolved Time COVID-19 03/05/2022 03/05/2022 03/15/2022 7:18 PM EDT documented as of this encounter Care Teams Mill Hand Relationship Specialty Start Date End Date Caitlyn Bowie MD 3400 [facility] 1 [place] [address] PCP - General Internal Medicine 05/06/21 Henry Kelly MD Pulmonary Department 175 [facility], [address] [place] [address] Physician Pulmonary Disease 09/06/17 06/22/20 documented as of this encounter
--- OUTSIDE RECORDS SUMMARY | 2025-05-22 12:29 | XMS_ITS | Encounter Summary ---
Author Organization [facility] Address [address] [place] [address] Care Team Providers Care Garden Equipment Mechanic Name Role Phone Caitlyn Bowei MD Primary Care Provider +1- [phone] Encounter Details Date Type Department Care Team ([facility] st Contact Info) Description 06/24/2022 Scanned Document INTERFACE DEFAULT [address] [place] [address] System, Provider Not In Social History Tobacco [...] as of this encounter Care Teams Garden Equipment Mechanic Relationship Specialty Start Date End Date Caitlyn Bowie MD [address] [address] PCP - General Internal Medicine 05/06/21 documented as of this encounter
--- OUTSIDE RECORDS SUMMARY | 2025-05-22 12:29 | XMS_ITS | Encounter Summary ---
Author Organization [facility] Address [address] [place] [address] Care Team Providers Care Branch Banker Name Role Phone Caitlyn Bowie MD Primary Care Provider +1- [phone] Encounter Details Date Type Department Care Team ([facility] st Contact Info) Description 06/08/2022 Scanned Document INTERFACE DEFAULT [address] [place] [address] System, Provider Not In Social History Tobacco [...] as of this encounter Care Teams Branch Banker Relationship Specialty Start Date End Date Caitlyn Bowie MD [address] [address] PCP - General Internal Medicine 05/06/21 documented as of this encounter
--- OUTSIDE RECORDS SUMMARY | 2025-05-22 12:29 | XMS_ITS | Encounter Summary ---
Author Organization [facility] Address [address] [place] [address] Care Team Providers Care Community Aide Name Role Phone Caitlyn Bowie MD Primary Care Provider +1- [phone] Encounter Details Date Type Department Care Team ([facility] st Contact Info) Description 09/02/2021 Scanned Document INTERFACE DEFAULT [address] [place] [address] System, Provider Not In Social History Tobacco [...] as of this encounter Care Teams Community Aide Relationship Specialty Start Date End Date Caitlyn Bowie MD [address] [address] PCP - General Internal Medicine 05/06/21 documented as of this encounter
--- OUTSIDE RECORDS SUMMARY | 2025-05-22 12:29 | XMS_ITS | Encounter Summary ---
Author Organization [facility] Address [address] [place] [address] Care Team Providers Care Office Worker Name Role Phone Caitlyn Bowie MD Primary Care Provider +1- [phone] Encounter Details Date Type Department Care Team ([facility] st Contact Info) Description 04/13/2023 Scanned Document INTERFACE DEFAULT [address] [place] [address] System, Provider Not In Social History Tobacco [...] as of this encounter Care Teams Office Worker Relationship Specialty Start Date End Date Caitlyn Bowie MD [address] [address] PCP - General Internal Medicine 05/06/21 documented as of this encounter
--- OUTSIDE RECORDS SUMMARY | 2025-05-22 12:29 | XMS_ITS | Encounter Summary ---
Author Organization [facility] and [facility] Address [address] [place] [address] Care Team Providers Care Sap Enterprise Portal Consultant Name Role Phone Caitlyn Bowie MD Primary Care Provider +1- [phone] Encounter Details Date Type Department Care Team ([facility] st Contact Info) Description 09/28/2015 Scanned Document [facility] Health Information Management [address] [place] [address] External, Provider Social History Tobacco Use Types [...] External LAB BLOOD ORDERABLES Final Res ult [facility] [place], [place], [facility] documented in this encounter Visit Diagnoses Not on filedocumented in this encounter Additional Health Concerns Infection Onset Date Last Indicated Resolved Time COVID-19 03/05/2022 03/05/2022 03/15/2022 7:18 PM EDT documented as of this encounter Care Teams Sap Enterprise Portal Consultant Relationship Specialty Start Date End Date Caitlyn Bowie MD 3400 [facility] 1 [place] [address] PCP - General Internal Medicine 05/06/21 Henry Kelly MD Pulmonary Department 175 [facility], [address] [place] [address] Physician Pulmonary Disease 09/06/17 06/22/20 documented as of this encounter
--- OUTSIDE RECORDS SUMMARY | 2025-05-22 12:29 | XMS_ITS | Encounter Summary ---
Author Organization [facility] Address [address] [place] [address] Care Team Providers Care Electric Tool Repairer Name Role Phone Caitlyn Bowie MD Primary Care Provider +1- [phone] Encounter Details Date Type Department Care Team (Late st Contact Info) Description 12/06/2018 Scanned Document [facility] Health Information Management [address] [place] [address] External, Provider Social History Tobacco Use Types [...] as of this encounter Care Teams Electric Tool Repairer Relationship Specialty Start Date End Date Caitlyn Bowie MD 3400 [facility] 1 [place] [address] PCP - General Internal Medicine 05/06/21 Henry Kelly MD Pulmonary Department 175 [facility], [address] [place] [address] Physician Pulmonary Disease 09/06/17 06/22/20 documented as of this encounter
--- OUTSIDE RECORDS SUMMARY | 2025-05-22 12:29 | XMS_ITS | Encounter Summary ---
Author Organization [facility] and [facility] Address [address] [place] [address] Care Team Providers Care Diamond Sizer Name Role Phone Caitlyn Bowie MD Primary Care Provider +1- [phone] Encounter Details Date Type Department Care Team ([facility] st Contact Info) Description 10/24/2022 Scanned Document INTERFACE DEFAULT [address] [place] [address] System, Provider Not In Social History Tobacco [...] as of this encounter Care Teams Diamond Sizer Relationship Specialty Start Date End Date Caitlyn Bowie MD [address] [address] PCP - General Internal Medicine 05/06/21 documented as of this encounter
--- OUTSIDE RECORDS SUMMARY | 2025-05-22 12:29 | XMS_ITS | Encounter Summary ---
Author Organization [facility] Address [address] [place] [address] Care Team Providers Care Yarn Sizer Name Role Phone Pcp, No Primary Care Provider Brennan Mario MD Primary Care Provider [phone] Caitlyn Bowie MD Primary Care Provider +1- [phone] Encounter Details Date Type Department Care Team (Late st Contact Info) Description 01/04/2022 Scanned Document [facility] Neurology Ophthalmology [address] [address] Yary Whitten DO [address] [place] [address] Social History Tobacco Use Types Packs/Day [...] 07/18/22 Brennan Burnett MD [address] [place] [address] PCP - General 07/19/22 03/19/23 Caitlyn Bowie MD 3400 [place] [address] PCP - General Internal Medicine 03/20/23 documented as of this encounter
--- OUTSIDE RECORDS SUMMARY | 2025-05-22 12:29 | XMS_ITS | Encounter Summary ---
Author Organization [facility] Address [address] [place] [address] Care Team Providers Care Disabilities Caregiver Name Role Phone Caitlyn Bowie MD Primary Care Provider +1- [phone] Encounter Details Date Type Department Care Team ([facility] st Contact Info) Description 06/28/2022 Scanned Document INTERFACE DEFAULT [address] [place] [address] System, Provider Not In Social History Tobacco [...] documented as of this encounter Care Teams Disabilities Caregiver Relationship Specialty Start Date End Date Caitlyn Bowie MD [address] [address] PCP - General Internal Medicine 05/06/21 documented as of this encounter
--- OUTSIDE RECORDS SUMMARY | 2025-05-22 12:29 | XMS_ITS | Encounter Summary ---
Author Organization [facility] and [facility] Address [address] [place] [address] Care Team Providers Care Egg Candler Name Role Phone Caitlyn Bowie MD Primary Care Provider +1- [phone] Encounter Details Date Type Department Care Team ([facility] st Contact Info) Description 08/28/2015 Scanned Document [facility] Health Information Management [address] [place] [address] External, Provider Social History Tobacco Use Types [...] as of this encounter Care Teams Egg Candler Relationship Specialty Start Date End Date Caitlyn Bowie MD [address] [address] PCP - General Internal Medicine 05/06/21 Henry Kelly MD Pulmonary Department 175 [facility], [address] [place] [address] Physician Pulmonary Disease 09/06/17 06/22/20 documented as of this encounter
--- OUTSIDE RECORDS SUMMARY | 2025-05-22 12:29 | XMS_ITS | Encounter Summary ---
Author Organization [facility] Address [address] [place] [address] Care Team Providers Care Armament Installer Name Role Phone Caitlyn Bowie MD Primary Care Provider +1- [phone] Encounter Details Date Type Department Care Team ([facility] st Contact Info) Description 07/07/2021 Scanned Document INTERFACE DEFAULT [address] [place] [address] System, Provider Not In Social History Tobacco [...] documented as of this encounter Care Teams Armament Installer Relationship Specialty Start Date End Date Caitlyn Bowie MD [address] [address] PCP - General Internal Medicine 05/06/21 documented as of this encounter
--- OUTSIDE RECORDS SUMMARY | 2025-05-22 12:30 | XMS_ITS | Encounter Summary ---
Author Organization [facility] Address [address] [place] [address] Care Team Providers Care All Source Intelligence Name Role Phone Caitlyn Bowie MD Primary Care Provider +1- [phone] Encounter Details Date Type Department Care Team (Late st Contact Info) Description 12/01/2015 Scanned Document [facility] Health Information Management [address] [place] [address] External, Provider Social History Tobacco Use Types [...] - Final [facility] [place], [place], [facility] documented in this encounter Visit Diagnoses Not on filedocumented in this encounter Additional Health Concerns Infection Onset Date Last Indicated Resolved Time COVID-19 03/05/2022 03/05/2022 03/15/2022 7:18 PM EDT documented as of this encounter Care Teams All Source Intelligence Relationship Specialty Start Date End Date Caitlyn Bowie MD [address] [address] PCP - General Internal Medicine 05/06/21 Henry Kelly MD Pulmonary Department 175 [facility], [address] [place] [address] Physician Pulmonary Disease 09/06/17 06/22/20 documented as of this encounter
--- OUTSIDE RECORDS SUMMARY | 2025-05-22 12:30 | XMS_ITS | Encounter Summary ---
Author Organization [facility] Address [address] [place] [address] Care Team Providers Care Insecticide Mixer Name Role Phone Caitlyn Bowie MD Primary Care Provider +1- [phone] Encounter Details Date Type Department Care Team (Late st Contact Info) Description 04/14/2022 Scanned Document INTERFACE DEFAULT [address] [place] [address] System, Provider Not In Social History Tobacco [...] documented as of this encounter Care Teams Insecticide Mixer Relationship Specialty Start Date End Date Caitlyn Bowie MD [address] [address] PCP - General Internal Medicine 05/06/21 documented as of this encounter
--- OUTSIDE RECORDS SUMMARY | 2025-05-22 12:30 | XMS_ITS | Encounter Summary ---
Author Organization [facility] Address [address] [place] [address] Care Team Providers Care Border Police Name Role Phone Caitlyn Bowie MD Primary Care Provider +1- [phone] Encounter Details Date Type Department Care Team (Late st Contact Info) Description 11/03/2015 Scanned Document [facility] Health Information Management [address] [place] [address] External, Provider Social History Tobacco Use Types [...] IMG SCAN REPORTS Edited Result - Final [facility] [place], [place], [facility] documented in this encounter Visit Diagnoses Not on filedocumented in this encounter Additional Health Concerns Infection Onset Date Last Indicated Resolved Time COVID-19 03/05/2022 03/05/2022 03/15/2022 7:18 PM EDT documented as of this encounter Care Teams Border Police Relationship Specialty Start Date End Date Caitlyn Bowie MD [address] [address] PCP - General Internal Medicine 05/06/21 Henry Kelly MD Pulmonary Department 175 [facility], [address] [place] [address] Physician Pulmonary Disease 09/06/17 06/22/20 documented as of this encounter
--- OUTSIDE RECORDS SUMMARY | 2025-05-22 12:30 | XMS_ITS | Encounter Summary ---
Author Organization [facility] Address [address] [place] [address] Care Team Providers Care Beater Engineer Helper Name Role Phone Caitlyn Bowie MD Primary Care Provider +1- [phone] Encounter Details Date Type Department Care Team (Late st Contact Info) Description 04/22/2019 Scanned Document [facility] Health Information Management [address] [place] [address] External, Provider Social History Tobacco Use Types [...] as of this encounter Care Teams Beater Engineer Helper Relationship Specialty Start Date End Date Caitlyn Bowie MD [address] [address] PCP - General Internal Medicine 05/06/21 Henry Kelly MD Pulmonary Department [address] [place] [address], [address] [place] [address] Physician Pulmonary Disease 09/06/17 06/22/20 documented as of this encounter
--- OUTSIDE RECORDS SUMMARY | 2025-05-22 12:30 | XMS_ITS | Encounter Summary ---
Author Organization [facility] and [facility] Address [address] [place] [address] Care Team Providers Care Braille Proofreader Name Role Phone Caitlyn Bowie MD Primary Care Provider +1- [phone] Encounter Details Date Type Department Care Team (Latest Contact Info) Description 12/25/2015 Transcribed Orders [facility] Draw Station [address] [place] [address] [place] [address] Osmel Briscoe MD Other abnormality of red [...] Q YH) (12/25/2015 10:09 AM EDT) Ig [place] Free Light Chain 1.84 0.33 - 1.94 mg/dL [facility] Ig Lambda Free Light Chain 1.96 0.57 - 2.63 mg/dL [facility] [place]/Lambda FLC Ratio 0.94 0.26 - 1.65 [facility] Blood specimen (specimen) 12/25/2015 10:09 AM EDT Osmel Briscoe MD LAB BLOOD ORDERABLES Final R esult Performing Organization Address [facility] Co de Phone Number [facility] [address] [place] [address] * Immunofixation, serum (GH L Q YH) [...] ORDERABLES Final R esult Performing Organization Address [facility] Co de Phone Number [facility] [address] [place] [address] * (ABNORMAL) Protein electrophoresis, serum (BH GH L YH) (12/25/2015 10:09 AM EDT) Albumin Electrophoresis 3.45(L) 3.50 - 4.70 g/dL [facility] Ghboe-1-Ltbvzdce 0.16 0.10 - 0.30 g/dL [facility] Ntqzw-8-Svzmoqqk 0.81 0.60 - 1.00 g/dL [facility] [...] ORDERABLES Final R esult Performing Organization Address [facility] Co de Phone Number [facility] [address] [place] [phone] * Reticulocytes (GH L Q YH) (12/25/2015 10:09 AM EDT) Reticulocyte Count 2.1 0.6 - 2.7 % [facility] Blood specimen (specimen) 12/25/2015 10:09 AM EDT Osmel Briscoe MD LAB BLOOD ORDERABLES Final R esult Performing Organization Address [facility] Co de Phone Number [facility] [address] [place] [phone] * (ABNORMAL) Sedimentation rate (ESR) (12/25/2015 10:09 AM EDT) Sed Rate 27(H) 0 - 20 mm/hr [facility] Blood specimen (specimen) 12/25/2015 10:09 AM EDT Osmel Briscoe MD LAB BLOOD ORDERABLES Final R esult Performing Organization Address [facility] Co de Phone Number [facility] [address] [place] [phone] * Ferritin (12/25/2015 10:09 AM EDT) Ferritin 68 9 - 120 ng/mL [facility] Blood specimen (specimen) 12/25/2015 10:09 AM EDT us Osmel Briscoe MD LAB BLOOD ORDERABLES Final R esult Performing Organization Address [facility] de Phone Number [facility] [address] [place] [address] * Iron and TIBC (12/25/2015 10:09 AM EDT) Iron 110 50 - 170 ug/dL [facility] TIBC 290 250 - 450 ug/dL [facility] Iron Saturation 38 15 - 50 [facility] Blood specimen (specimen) 12/25/2015 10:09 AM EDT Osmel Briscoe MD LAB BLOOD ORDERABLES Final R esult Performing Organization Address [facility] de Phone Number [facility] [address] [place] [phone] * Vitamin D 25 hydroxy (BH L [...] ORDERABLES Final R esult Performing Organization Address [facility] Co de Phone Number [facility] [address] [place] [phone] * TSH (BH L YH) (12/25/2015 10:09 AM EDT) TSH cancelled 0.3 - 4.2 uU/mL [facility] TSH 1.62 0.3 - 4.2 uU/mL [facility] Comment:This test is a third generation TSH assay. Blood specimen (specimen) 12/25/2015 10:09 AM EDT us Osmel Briscoe MD LAB BLOOD ORDERABLES Final R esult [facility] [address] [place] [address] * (ABNORMAL) CBC and differential (12/25/2015 10:09 AM EDT) Pathologist [facility] CBC with Differential See Below [facility] [...] Final R esult [facility] [address] [place] [address] documented in this encounter Visit Diagnoses Diagnosis [...] documented as of this encounter Care Teams Braille Proofreader Relationship Specialty Start Date End Date Caitlyn Bowie MD [address] [facility] 1 [place] [address] PCP - General Internal Medicine 05/06/21 Henry Kelly MD Pulmonary Department [address] [facility], [address] [place] [address] Physician Pulmonary Disease 09/06/17 06/22/20 documented as of this encounter
--- OUTSIDE RECORDS SUMMARY | 2025-05-22 12:30 | XMS_ITS | Encounter Summary ---
Author Organization [facility] and [facility] Address [address] [place] [address] Care Team Providers Care Inspection Manager Name Role Phone Caitlyn Bowie MD Primary Care Provider +1- [phone] Encounter Details Date Type Department Care Team (Late st Contact Info) Description 12/16/2015 Scanned Document [facility] Health Information Management [address] [place] [address] External, Provider Social History Tobacco Use Types [...] IMG SCAN REPORTS Edited Result - Final [facility] [place], [place], [facility] documented in this encounter Visit Diagnoses Not on filedocumented in this encounter Additional Health Concerns Infection Onset Date Last Indicated Resolved Time COVID-19 03/05/2022 03/05/2022 03/15/2022 7:18 PM EDT documented as of this encounter Care Teams Inspection Manager Relationship Specialty Start Date End Date Caitlyn Bowie MD [address] [address] PCP - General Internal Medicine 05/06/21 Henry Kelly MD Pulmonary Department [address] [facility], [address] [place] [address] Physician Pulmonary Disease 09/06/17 06/22/20 documented as of this encounter
--- OUTSIDE RECORDS SUMMARY | 2025-05-22 12:30 | XMS_ITS | Encounter Summary ---
Author Organization [facility] and [facility] Address [address] [place] [address] Care Team Providers Care Medical Librarian Name Role Phone Caitlyn Bowie MD Primary Care Provider +1- [phone] Encounter Details Date Type Department Care Team ([facility] st Contact Info) Description 04/13/2022 Scanned Document INTERFACE DEFAULT [address] [place] [address] System, Provider Not In Social History Tobacco [...] as of this encounter Care Teams Medical Librarian Relationship Specialty Start Date End Date Caitlyn Bowie MD [address] [address] PCP - General Internal Medicine 05/06/21 documented as of this encounter
--- OUTSIDE RECORDS SUMMARY | 2025-05-22 12:30 | XMS_ITS | Encounter Summary ---
Author Organization [facility] and [facility] Address [address] [place] [address] Care Team Providers Care Advertising Columnist Name Role Phone Caitlyn Bowie MD Primary Care Provider +1- [phone] Encounter Details Date Type Department Care Team (Late st Contact Info) Description 04/25/2022 Scanned Document INTERFACE DEFAULT [address] [place] [address] System, Provider Not In Social History Tobacco [...] as of this encounter Care Teams Advertising Columnist Relationship Specialty Start Date End Date Caitlyn Bowie MD [address] [address] PCP - General Internal Medicine 05/06/21 documented as of this encounter
--- OUTSIDE RECORDS SUMMARY | 2025-05-22 12:30 | XMS_ITS | Encounter Summary ---
Author Organization [facility] and [facility] Address [address] [place] [address] Care Team Providers Care Dredge Pipeman Name Role Phone Caitlyn Bowie MD Primary Care Provider +1- [phone] Encounter Details Date Type Department Care Team (Late st Contact Info) Description 05/10/2022 Scanned Document Cardiovascular Medicine at [facility] THIRD FLOOR [place], [place] [phone] Norma Renee MD [address] [place] [phone] Social History Tobacco Use Types Packs/Day Years [...] documented as of this encounter Care Teams Dredge Pipeman Relationship Specialty Start Date End Date Caitlyn Bowie MD [address] [address] PCP - General Internal Medicine 05/06/21 documented as of this encounter
--- OUTSIDE RECORDS SUMMARY | 2025-05-22 12:30 | XMS_ITS | Encounter Summary ---
Author Organization [facility] Address [address] [place] [address] Care Team Providers Care Naturopath Name Role Phone Pcp, No Primary Care Provider Brennan Mario MD Primary Care Provider [phone] Caitlyn Bowie MD Primary Care Provider +1- [phone] Encounter Details Date Type Department Care Team (Late st Contact Info) Description 01/04/2022 Scanned Document [facility] Neurology Ophthalmology [address] [address] Yary Whitten DO [address] [place] [address] Social History Tobacco Use Types Packs/Day [...] on filedocumented in this encounter Care Teams Naturopath Relationship Specialty Start Date End Date Pcp, No PCP - General General Medicine 10/04/21 07/18/22 Brennan Burnett MD [address] [place] [address] PCP - General 07/19/22 03/19/23 Caitlyn Bowie MD [address] [place] [address] PCP - General Internal Medicine 03/20/23 documented as of this encounter
--- OUTSIDE RECORDS SUMMARY | 2025-05-22 12:30 | XMS_ITS | Encounter Summary ---
Author Organization [facility] and [facility] Address [address] [place] [address] Care Team Providers Care Tube Turner Name Role Phone Caitlyn Bowie MD Primary Care Provider +1- [phone] Reason for Visit * Reason Comments Results Encounter Details Date Type Department Care Team (Late st Contact Info) Description 03/15/2022 Telephone [facility] at [address] [address] Ronald Mills MD [address] [place] [phone] Results Social History Tobacco Use Types [...] as of this encounter Care Teams Tube Turner Relationship Specialty Start Date End Date Caitlyn Bowie MD [address] [address] PCP - General Internal Medicine 05/06/21 documented as of this encounter
--- OUTSIDE RECORDS SUMMARY | 2025-05-22 12:30 | XMS_ITS | Encounter Summary ---
Author Organization [facility] and [facility] Address [address] [place] [address] Care Team Providers Care Control Valve Mechanic Name Role Phone Caitlyn Bowie MD Primary Care Provider +1- [phone] Encounter Details Date Type Department Care Team (Late st Contact Info) Description 04/18/2022 Scanned Document INTERFACE DEFAULT [address] [place] [address] System, Provider Not In Social History Tobacco [...] as of this encounter Care Teams Control Valve Mechanic Relationship Specialty Start Date End Date Caitlyn Bowie MD [address] [address] PCP - General Internal Medicine 05/06/21 documented as of this encounter
--- OUTSIDE RECORDS SUMMARY | 2025-05-22 12:30 | XMS_ITS | Encounter Summary ---
Author Organization [facility] and [facility] Address [address] [place] [address] Care Team Providers Care Skin Care Specialist Name Role Phone Caitlyn Bowie MD Primary Care Provider +1- [phone] Encounter Details Date Type Department Care Team (Late st Contact Info) Description 12/29/2021 Telephone [facility] at [address] - [address] [address] Ronald Mills MD [address] [place] [address] Social History Tobacco Use Types Packs/Day [...] not sure where the blood's coming from. [phone] documented in this encounter Plan of Treatment Not on file documented as of this encounter Visit Diagnoses Not on filedocumented in this encounter Additional Health Concerns Infection Onset Date Last Indicated Resolved Time COVID-19 03/05/2022 03/05/2022 03/15/2022 7:18 PM EDT Assessment Noted Time PHQ-9 Depression Total Score: 2 11/07/19 19 2:06 PM EDT documented as of this encounter Care Teams Skin Care Specialist Relationship Specialty Start Date End Date Caitlyn Bowie MD [facility] [address] [address] PCP - General Internal Medicine 05/06/21 documented as of this encounter
--- OUTSIDE RECORDS SUMMARY | 2025-05-22 12:30 | XMS_ITS | Encounter Summary ---
Author Organization [facility] and [facility] Address [address] [place] [address] Care Team Providers Care Agronomy Manager Name Role Phone Caitlyn Bowie MD Primary Care Provider +1- [phone] Encounter Details Date Type Department Care Team ([facility] st Contact Info) Description 01/08/2022 Scanned Document INTERFACE DEFAULT [address] [place] [address] System, Provider Not In Social History Tobacco [...] as of this encounter Care Teams Agronomy Manager Relationship Specialty Start Date End Date Caitlyn Bowie MD [address] [address] PCP - General Internal Medicine 05/06/21 documented as of this encounter
--- OUTSIDE RECORDS SUMMARY | 2025-05-22 12:30 | XMS_ITS | Encounter Summary ---
Author Organization [facility] and [facility] Address [address] [place] [address] Care Team Providers Care Resource Center Teacher Name Role Phone Caitlyn Bowie MD Primary Care Provider +1- [phone] Encounter Details Date Type Department Care Team (Late st Contact Info) Description 12/31/2015 Scanned Document [facility] Program [address] [place] [address] External, Provider Social History Tobacco Use Types [...] LAB BLOOD ORDERABLES Final Res ult [facility] [place], [place], [facility] documented in this encounter Visit Diagnoses Not on filedocumented in this encounter Additional Health Concerns Infection Onset Date Last Indicated Resolved Time COVID-19 03/05/2022 03/05/2022 03/15/2022 7:18 PM EDT documented as of this encounter Care Teams Resource Center Teacher Relationship Specialty Start Date End Date Caitlyn Bowie MD 3400 [facility] 1 [place] [address] PCP - General Internal Medicine 05/06/21 Henry Kelly MD Pulmonary Department [address] [place] [address], [address] [place] [address] Physician Pulmonary Disease 09/06/17 06/22/20 documented as of this encounter
--- OUTSIDE RECORDS SUMMARY | 2025-05-22 12:30 | XMS_ITS | Encounter Summary ---
Author Organization [facility] and [facility] Address [address] [place] [address] Care Team Providers Care Acetylene Burner Name Role Phone Caitlyn Bowie MD Primary Care Provider +1- [phone] Encounter Details Date Type Department Care Team (Late st Contact Info) Description 03/02/2022 Scanned Document [facility] Health Information Management [address] [place] [address] External, Provider Social History Tobacco Use Types [...] as of this encounter Care Teams Acetylene Burner Relationship Specialty Start Date End Date Caitlyn Bowie MD [address] [address] PCP - General Internal Medicine 05/06/21 documented as of this encounter
--- OUTSIDE RECORDS SUMMARY | 2025-05-22 12:30 | XMS_ITS | Encounter Summary ---
Author Organization [facility] and [facility] Address [address] [place] [address] Care Team Providers Care E Learning Coordinator Name Role Phone Caitlyn Bowie MD Primary Care Provider +1- [phone] Encounter Details Date Type Department Care Team ([facility] st Contact Info) Description 04/22/2022 Scanned Document INTERFACE DEFAULT [address] [place] [address] System, Provider Not In Social History Tobacco [...] End Date Caitlyn Bowie MD [address] [address] PCP - General Internal Medicine 05/06/21 documented as of this encounter
--- OUTSIDE RECORDS SUMMARY | 2025-05-22 12:30 | XMS_ITS | Encounter Summary ---
Author Organization [facility] and [facility] Address [address] [place] [address] Care Team Providers Care Smoke Chaser Name Role Phone Caitlyn Bowie MD Primary Care Provider +1- [phone] Encounter Details Date Type Department Care Team (Late st Contact Info) Description 11/04/2015 Scanned Document [facility] Health Information Management [address] [place] [address] External, Provider Social History Tobacco Use Types [...] SCAN REPORTS Edited Result - Final [facility] [place], [place], [facility] documented in this encounter Visit Diagnoses Not on filedocumented in this encounter Additional Health Concerns Infection Onset Date Last Indicated Resolved Time COVID-19 03/05/2022 03/05/2022 03/15/2022 7:18 PM EDT documented as of this encounter Care Teams Smoke Chaser Relationship Specialty Start Date End Date Caitlyn Bowie MD 3400 [facility] 1 [place] [address] PCP - General Internal Medicine 05/06/21 Henry Kelly MD Pulmonary Department 175 [facility], [address] [place] [address] Physician Pulmonary Disease 09/06/17 06/22/20 documented as of this encounter
--- OUTSIDE RECORDS SUMMARY | 2025-05-22 12:30 | XMS_ITS | Encounter Summary ---
Author Organization [facility] Address [address] [place] [address] Care Team Providers Care Green Chain Off Bearer Name Role Phone Caitlyn Bowie MD Primary Care Provider +1- [phone] Encounter Details Date Type Department Care Team ([facility] st Contact Info) Description 04/19/2022 Scanned Document INTERFACE DEFAULT [address] [place] [address] System, Provider Not In Social History Tobacco [...] as of this encounter Care Teams Green Chain Off Bearer Relationship Specialty Start Date End Date Caitlyn Bowie MD [address] [address] PCP - General Internal Medicine 05/06/21 documented as of this encounter
--- OUTSIDE RECORDS SUMMARY | 2025-05-22 12:30 | XMS_ITS | Encounter Summary ---
Author Organization [facility] and [facility] Address [address] [place] [address] Care Team Providers Care Skiing Teacher Name Role Phone Caitlyn Bowie MD Primary Care Provider +1- [phone] Encounter Details Date Type Department Care Team ([facility] st Contact Info) Description 04/12/2022 Scanned Document INTERFACE DEFAULT [address] [place] [address] System, Provider Not In Social History Tobacco [...] documented as of this encounter Care Teams Skiing Teacher Relationship Specialty Start Date End Date Caitlyn Bowie MD [address] [address] PCP - General Internal Medicine 05/06/21 documented as of this encounter
--- OUTSIDE RECORDS SUMMARY | 2025-05-22 12:30 | XMS_ITS | Encounter Summary ---
Author Organization [facility] and [facility] Address [address] [place] [address] Care Team Providers Care Councilman Name Role Phone Caitlyn Bowie MD Primary Care Provider +1- [phone] Encounter Details Date Type Department Care Team ([facility] st Contact Info) Description 04/16/2022 Scanned Document INTERFACE DEFAULT [address] [place] [phone] System, Provider Not In Social History Tobacco [...] documented as of this encounter Care Teams Councilman Relationship Specialty Start Date End Date Caitlyn Bowie MD [address] [address] PCP - General Internal Medicine 05/06/21 documented as of this encounter
--- OUTSIDE RECORDS SUMMARY | 2025-05-22 12:30 | XMS_ITS | Encounter Summary ---
Author Organization [facility] Address [address] [place] [address] Care Team Providers Care Janitorial Assistant Name Role Phone Caitlyn Bowie MD Primary Care Provider +1- [phone] Encounter Details Date Type Department Care Team (Late st Contact Info) Description 03/20/2023 Scanned Document [facility] Radiology [address] [place] [address] Caitlyn Bowie MD [address] [place] [address] Social History Tobacco Use Types Packs/Day Years [...] on filedocumented in this encounter Care Teams Janitorial Assistant Relationship Specialty Start Date End Date Caitlyn Bowie MD [address] [place] [address] PCP - General Internal Medicine 03/20/23 documented as of this encounter
--- OUTSIDE RECORDS SUMMARY | 2025-05-22 12:30 | XMS_ITS | Encounter Summary ---
Author Organization [facility] Address [address] [place] [address] Care Team Providers Care Nursing Center Tutor Name Role Phone Caitlyn Bowie MD Primary Care Provider +1- [phone] Encounter Details Date Type Department Care Team ([facility] st Contact Info) Description 04/28/2022 Scanned Document INTERFACE DEFAULT [address] [place] [address] System, Provider Not In Social History Tobacco [...] as of this encounter Care Teams Nursing Center Tutor Relationship Specialty Start Date End Date Caitlyn Bowie MD [address] [address] PCP - General Internal Medicine 05/06/21 documented as of this encounter
--- OUTSIDE RECORDS SUMMARY | 2025-05-22 12:30 | XMS_ITS | Encounter Summary ---
Author Organization [facility] and [facility] Address [address] [place] [address] Care Team Providers Care Waistband Setter Name Role Phone Caitlyn Bowie MD Primary Care Provider +1- [phone] Encounter Details Date Type Department Care Team ([facility] st Contact Info) Description 10/23/2018 Scanned Document [facility] Health Information Management [address] [place] [address] External, Provider Social History Tobacco Use Types [...] documented as of this encounter Care Teams Waistband Setter Relationship Specialty Start Date End Date Caitlyn Bowie MD [address] [address] PCP - General Internal Medicine 05/06/21 Henry Kelly MD Pulmonary Department 175 [facility], [address] [place] [address] Physician Pulmonary Disease 09/06/17 06/22/20 documented as of this encounter
--- OUTSIDE RECORDS SUMMARY | 2025-05-22 12:30 | XMS_ITS | Encounter Summary ---
Author Organization [facility] and [facility] Address [address] [place] [address] Care Team Providers Care Vice President Sales And Marketing Name Role Phone Caitlyn Bowie MD Primary Care Provider +1- [phone] Encounter Details Date Type Department Care Team (Late st Contact Info) Description 05/04/2022 Scanned Document INTERFACE DEFAULT [address] [place] [address] System, Provider Not In Social History Tobacco [...] of this encounter Care Teams Vice President Sales And Marketing Relationship Specialty Start Date End Date Caitlyn Bowie MD [address] [address] PCP - General Internal Medicine 05/06/21 documented as of this encounter
--- OUTSIDE RECORDS SUMMARY | 2025-05-22 12:30 | XMS_ITS | Encounter Summary ---
Author Organization [facility] and [facility] Address [address] [place] [address] Care Team Providers Care Machine Cloth Trimmer Name Role Phone Caitlyn Bowie MD Primary Care Provider +1- [phone] Encounter Details Date Type Department Care Team ([facility] st Contact Info) Description 12/03/2015 Scanned Document [facility] Health Information Management [address] [place] [address] External, Provider Social History Tobacco Use Types [...] BLOOD ORDERABLES Edited Re sult - Final [facility] [place], [place], [facility] documented in this encounter Visit Diagnoses Not on filedocumented in this encounter Additional Health Concerns Infection Onset Date Last Indicated Resolved Time COVID-19 03/05/2022 03/05/2022 03/15/2022 7:18 PM EDT documented as of this encounter Care Teams Machine Cloth Trimmer Relationship Specialty Start Date End Date Caitlyn Bowie MD 3400 [facility] 1 [place] [address] PCP - General Internal Medicine 05/06/21 Henry Kelly MD Pulmonary Department [address] [place] [address], [address] [place] [address] Physician Pulmonary Disease 09/06/17 06/22/20 documented as of this encounter
--- OUTSIDE RECORDS SUMMARY | 2025-05-22 12:30 | XMS_ITS | Encounter Summary ---
Author Organization [facility] and [facility] Address [address] [place] [address] Care Team Providers Care Security Systems Manager Name Role Phone Caitlyn Bowie MD Primary Care Provider +1- [phone] Encounter Details Date Type Department Care Team ([facility] st Contact Info) Description 04/18/2025 Scanned Document INTERFACE DEFAULT [address] [place] [address] System, Provider Not In Social History Tobacco [...] as of this encounter Care Teams Security Systems Manager Relationship Specialty Start Date End Date Caitlyn Bowie MD [address] [address] PCP - General Internal Medicine 05/06/21 documented as of this encounter
--- OUTSIDE RECORDS SUMMARY | 2025-05-22 12:30 | XMS_ITS | Encounter Summary ---
Author Organization [facility] and [facility] Address [address] [place] [address] Care Team Providers Care Buttonhole Machine Operator Name Role Phone Caitlyn Bowie MD Primary Care Provider +1- [phone] Encounter Details Date Type Department Care Team ([facility] st Contact Info) Description 05/02/2022 Scanned Document INTERFACE DEFAULT [address] [place] [address] System, Provider Not In Social History Tobacco [...] as of this encounter Care Teams Buttonhole Machine Operator Relationship Specialty Start Date End Date Caitlyn Bowie MD [address] [address] PCP - General Internal Medicine 05/06/21 documented as of this encounter
--- OUTSIDE RECORDS SUMMARY | 2025-05-22 12:30 | XMS_ITS | Encounter Summary ---
Author Organization [facility] Address [address] [place] [address] Care Team Providers Care Hide Mill Man Name Role Phone Caitlyn Bowie MD Primary Care Provider +1- [phone] Encounter Details Date Type Department Care Team ([facility] st Contact Info) Description 04/12/2022 Scanned Document [facility] Health Information Management [address] [place] [address] External, Provider Social History Tobacco Use Types [...] of this encounter Care Teams Hide Mill Man Relationship Specialty Start Date End Date Caitlyn Bowie MD [address] [address] PCP - General Internal Medicine 05/06/21 documented as of this encounter
--- OUTSIDE RECORDS SUMMARY | 2025-05-22 12:31 | XMS_ITS | Encounter Summary ---
Author Organization [facility] and [facility] Address [address] [place] [address] Care Team Providers Care Residential Specialist Name Role Phone Caitlyn Bowie MD Primary Care Provider +1- [phone] Encounter Details Date Type Department Care Team ([facility] st Contact Info) Description 01/09/2019 Scanned Document [facility] Health Information Management [address] [place] [address] External, Provider Social History Tobacco Use Types [...] as of this encounter Care Teams Residential Specialist Relationship Specialty Start Date End Date Caitlyn Bowie MD 3400 [facility] 1 [place] [address] PCP - General Internal Medicine 05/06/21 Henry Kelly MD Pulmonary Department 175 [facility], [address] [place] [address] Physician Pulmonary Disease 09/06/17 06/22/20 documented as of this encounter
--- OUTSIDE RECORDS SUMMARY | 2025-05-22 12:31 | XMS_ITS | Encounter Summary ---
Author Organization [facility] and [facility] Address [address] [place] [address] Care Team Providers Care Parcel Post Weigher Name Role Phone Caitlyn Bowie MD Primary Care Provider +1- [phone] Encounter Details Date Type Department Care Team ([facility] st Contact Info) Description 08/08/2024 Scanned Document INTERFACE DEFAULT [address] [place] [address] System, Provider Not In Social History Tobacco [...] End Date Caitlyn Bowie MD [address] [address] PCP - General Internal Medicine 05/06/21 documented as of this encounter
--- OUTSIDE RECORDS SUMMARY | 2025-05-22 12:31 | XMS_ITS | Encounter Summary ---
Author Organization [facility] and [facility] Address [address] [place] [address] Care Team Providers Care Tentmaker Name Role Phone Caitlyn Bowie MD Primary Care Provider +1- [phone] Encounter Details Date Type Department Care Team ([facility] st Contact Info) Description 02/08/2016 Scanned Document [facility] Health Information Management [address] [place] [address] External, Provider Social History Tobacco Use Types [...] documented as of this encounter Care Teams Tentmaker Relationship Specialty Start Date End Date Caitlyn Bowie MD [address] [address] PCP - General Internal Medicine 05/06/21 Henry Kelly MD Pulmonary Department 175 [facility], [address] [place] [address] Physician Pulmonary Disease 09/06/17 06/22/20 documented as of this encounter
--- OUTSIDE RECORDS SUMMARY | 2025-05-22 12:31 | XMS_ITS | Encounter Summary ---
Author Organization [facility] Address [address] [place] [address] Care Team Providers Care Marketing Finance Specialist Name Role Phone Caitlyn Bowie MD Primary Care Provider +1- [phone] Encounter Details Date Type Department Care Team (Late st Contact Info) Description 04/08/2024 Scanned Document INTERFACE DEFAULT [address] [place] [address] System, Provider Not In Social History Tobacco [...] as of this encounter Care Teams Marketing Finance Specialist Relationship Specialty Start Date End Date Caitlyn Bowie MD [address] [address] PCP - General Internal Medicine 05/06/21 documented as of this encounter
--- OUTSIDE RECORDS SUMMARY | 2025-05-22 12:31 | XMS_ITS | Encounter Summary ---
Author Organization [facility] and [facility] Address [address] [place] [address] Care Team Providers Care Assembler Aircraft Power Plant Name Role Phone Caitlyn Bowie MD Primary Care Provider +1- [phone] Encounter Details Date Type Department Care Team ([facility] st Contact Info) Description 12/27/2018 Scanned Document [facility] Health Information Management [address] [place] [address] External, Provider Social History Tobacco Use Types [...] as of this encounter Care Teams Assembler Aircraft Power Plant Relationship Specialty Start Date End Date Caitlyn Bowie MD 3400 [facility] 1 [place] [address] PCP - General Internal Medicine 05/06/21 Henry Kelly MD Pulmonary Department 175 [facility], [address] [place] [address] Physician Pulmonary Disease 09/06/17 06/22/20 documented as of this encounter
--- OUTSIDE RECORDS SUMMARY | 2025-05-22 12:31 | XMS_ITS | Encounter Summary ---
Author Organization [facility] Address [address] [place] [address] Care Team Providers Care Gang Boss Name Role Phone Caitlyn Bowie MD Primary Care Provider +1- [phone] Encounter Details Date Type Department Care Team ([facility] st Contact Info) Description 09/15/2024 Scanned Document INTERFACE DEFAULT [address] [place] [address] System, Provider Not In Social History Tobacco [...] as of this encounter Care Teams Gang Boss Relationship Specialty Start Date End Date Caitlyn Bowie MD [address] [address] PCP - General Internal Medicine 05/06/21 documented as of this encounter
--- OUTSIDE RECORDS SUMMARY | 2025-05-22 12:31 | XMS_ITS | Encounter Summary ---
Author Organization [facility] and [facility] Address [address] [place] [address] Care Team Providers Care Primary Care Pediatrician Name Role Phone Caitlyn Bowie MD Primary Care Provider +1- [phone] Encounter Details Date Type Department Care Team ([facility] st Contact Info) Description 12/28/2018 Scanned Document [facility] Health Information Management [address] [place] [address] External, Provider Social History Tobacco Use Types [...] of this encounter Care Teams Primary Care Pediatrician Relationship Specialty Start Date End Date Caitlyn Bowie MD 3400 [facility] 1 [place] [address] PCP - General Internal Medicine 05/06/21 Henry Kelly MD Pulmonary Department 175 [facility], [address] [place] [address] Physician Pulmonary Disease 09/06/17 06/22/20 documented as of this encounter
--- OUTSIDE RECORDS SUMMARY | 2025-05-22 12:31 | XMS_ITS | Encounter Summary ---
Author Organization [facility] Address [address] [place] [address] Care Team Providers Care Cement Fittings Maker Name Role Phone Caitlyn Bowie MD Primary Care Provider +1- [phone] Encounter Details Date Type Department Care Team ([facility] st Contact Info) Description 02/06/2019 Scanned Document [facility] Health Information Management [address] [place] [address] External, Provider Social History Tobacco Use Types [...] as of this encounter Care Teams Cement Fittings Maker Relationship Specialty Start Date End Date Caitlyn Bowie MD [address] [address] PCP - General Internal Medicine 05/06/21 Henry Kelly MD Pulmonary Department [address] [place] [address], [address] [place] [address] Physician Pulmonary Disease 09/06/17 06/22/20 documented as of this encounter
--- OUTSIDE RECORDS SUMMARY | 2025-05-22 12:31 | XMS_ITS | Encounter Summary ---
Author Organization [facility] Address [address] [place] [address] Phone Care Team Providers Care Pocket Grinder Operator Name Role Phone Caitlyn Bowie MD Primary Care Provider +1- [phone] Encounter Details Date Type Department Care Team (Late st Contact Info) Description 10/01/2024 Documentation Only [facility] [address] [address] Ron Taylor [place] [address] [place] [address] Social History Tobacco Use Types [...] [facility] [address] [place] [address] Rubén Ashraf MD [address] [place] [address] [place] [address] documented as of this encounter Visit Diagnoses Not on filedocumented in this encounter Care Teams Pocket Grinder Operator Relationship Specialty Start Date End Date Caitlyn Bowie MD 3400 [place], [place] PCP - General Internal Medicine 09/24/24 documented as of this encounter
--- OUTSIDE RECORDS SUMMARY | 2025-05-22 12:31 | XMS_ITS | Encounter Summary ---
Author Organization [facility] Address [address] [place] [address] Care Team Providers Care Carcass Splitter Name Role Phone Caitlyn Bowie MD Primary Care Provider +1- [phone] Encounter Details Date Type Department Care Team ([facility] st Contact Info) Description 06/17/2016 Scanned Document [facility] Health Information Management [address] [place] [address] External, Provider Social History Tobacco Use Types [...] documented as of this encounter Care Teams Carcass Splitter Relationship Specialty Start Date End Date Caitlyn Bowie MD [address] [address] PCP - General Internal Medicine 05/06/21 Henry Kelly MD Pulmonary Department 175 [facility], [address] [place] [address] Physician Pulmonary Disease 09/06/17 06/22/20 documented as of this encounter
--- OUTSIDE RECORDS SUMMARY | 2025-05-22 12:31 | XMS_ITS | Encounter Summary ---
Author Organization [facility] and [facility] Address [address] [place] [address] Care Team Providers Care Deburring Machine Operator Name Role Phone Caitlyn Bowie MD Primary Care Provider +1- [phone] Encounter Details Date Type Department Care Team (Late st Contact Info) Description 12/16/2016 Scanned Document [facility] Health Information Management [address] [place] [phone] External, Provider Social History Tobacco Use Types [...] documented as of this encounter Care Teams Deburring Machine Operator Relationship Specialty Start Date End Date Caitlyn Bowie MD [address] [facility] 1 [place] [address] PCP - General Internal Medicine 05/06/21 Henry Kelly MD Pulmonary Department 175 [facility], [address] [place] [address] Physician Pulmonary Disease 09/06/17 06/22/20 documented as of this encounter
--- OUTSIDE RECORDS SUMMARY | 2025-05-22 12:31 | XMS_ITS | Encounter Summary ---
Author Organization [facility] and [facility] Address [address] [place] [address] Care Team Providers Care Supervisor Winter Name Role Phone Caitlyn Bowie MD Primary Care Provider +1- [phone] Encounter Details Date Type Department Care Team ([facility] st Contact Info) Description 01/08/2019 Scanned Document [facility] Health Information Management [address] [place] [address] External, Provider Social History Tobacco Use Types [...] as of this encounter Care Teams Supervisor Winter Relationship Specialty Start Date End Date Caitlyn Bowie MD [address] [address] PCP - General Internal Medicine 05/06/21 Henry Kelly MD Pulmonary Department [address] [place] [address], [address] [place] [address] Physician Pulmonary Disease 09/06/17 06/22/20 documented as of this encounter
--- OUTSIDE RECORDS SUMMARY | 2025-05-22 12:31 | XMS_ITS | Encounter Summary ---
Author Organization [facility] Address [address] [place] [address] Care Team Providers Care Supervisor Chemical Name Role Phone Caitlyn Bowie MD Primary Care Provider +1- [phone] Encounter Details Date Type Department Care Team (Late st Contact Info) Description 04/04/2016 Scanned Document [facility] 234 [facility]EDS AT [facility] Health Information Management [address] [place] [address] External, Provider Social History Tobacco Use Types [...] BLOOD ORDERABLES Final Res ult [facility] [place], [place], [facility] documented in this encounter Visit Diagnoses Not on filedocumented in this encounter Additional Health Concerns Infection Onset Date Last Indicated Resolved Time COVID-19 03/05/2022 03/05/2022 03/15/2022 7:18 PM EDT documented as of this encounter Care Teams Supervisor Chemical Relationship Specialty Start Date End Date Caitlyn Bowie MD 3400 [facility] 1 [place] [address] PCP - General Internal Medicine 05/06/21 Henry Kelly MD Pulmonary Department 175 [facility], [address] [place] [address] Physician Pulmonary Disease 09/06/17 06/22/20 documented as of this encounter
--- OUTSIDE RECORDS SUMMARY | 2025-05-22 12:31 | XMS_ITS | Encounter Summary ---
Author Organization [facility] Address [address] [place] [address] Care Team Providers Care Nutrition Intern Name Role Phone Caitlyn Bowie MD Primary Care Provider +1- [phone] Encounter Details Date Type Department Care Team ([facility] st Contact Info) Description 01/17/2019 Scanned Document [facility] Health Information Management [address] [place] [phone] External, Provider Social History Tobacco Use Types [...] as of this encounter Care Teams Nutrition Intern Relationship Specialty Start Date End Date Caitlyn Bowie MD 3400 [facility] 1 [place] [address] PCP - General Internal Medicine 05/06/21 Henry Kelly MD Pulmonary Department 175 [facility], [address] [place] [address] Physician Pulmonary Disease 09/06/17 06/22/20 documented as of this encounter
--- OUTSIDE RECORDS SUMMARY | 2025-05-22 12:31 | XMS_ITS | Clinical Summary ---
Author Organization [facility] Address [address] [place] [phone] Phone Care Team Providers Care Supervising Librarian Name Role Phone Caitlyn Bowie MD [...] (12/25/2021 4:22 PM EDT): Followed closely by linux system engineer-Dr. Ronald [place] at [facility]- advised to continue Coumadin anticoagulation [...] (09/09/2021 10:42 PM EST): Followed closely by linux system engineer-Dr. Ronald [place] at [facility] hemat[facility]- last seen on 08/05/2021 and [...] anticoagulation clinic to keep INR at 1.5-2.0. intermediate current use of systemic steroids 09/09 Assessment & Plan (12/10/2021 10:38 AM EDT): Carefully continue alternating low dosing as prescribed by her human resources operations coordinator and consider gentle taper when ready. Daily [...] alternating low dosing as prescribed by her human resources operations coordinator and consider gentle taper when ready. Daily [...] 11:40 AM EST Office Visit [facility] [address] [place] [address] [place] [id number] Anna Ellis MD [address] [place] [address] [address] [facility] [place] [address] [email or web address] Health Maintenance Due Date Last Done Comments [...] LAB BLOOD BKR ORDERABL ES Final Result [facility] [address] [place] [address] from Last 3 Months or Most Recently Relevant to Health Maintenance Insurance MEDICARE PART A & B [facility] MEDEX SUPPLEMENT HEALTH SAFETY NET [place] MEDICARE PART A & B [facility] MEDEX SUPPLEMENT HEALTH SAFETY NET [facility] PART A & B [facility] MEDEX SUPPLEMENT HEALTH SAFETY NET FULL [facility] PART A & B [facility] MEDEX SUPPLEMENT HEALTH SAFETY NET FULL [facility]IC[facility] PART A & B [facility] MEDEX SUPPLEMENT HEALTH SAFETY NET FULL [facility] MEDIC[facility] PART A & B [facility] MEDEX SUPPLEMENT [facility] SAFETY NET FULL [facility]IC[facility] PART A & B [facility] MEDEX SUPPLEMENT [facility] NET FULL [facility]IC[facility] PART A & B [facility] MEDEX SUPPLEMENT HEALTH SAFETY NET FULL [facility] MEDICARE PART A & B [facility] MEDEX SUPPLEMENT HEALTH SAFETY NET FULL [facility] Care Teams Supervising Librarian Relationship Specialty Start Date End Date Caitlyn Bowie MD PCP - General Internal Medicine 09/09/21 Additional Source Comments The information contained in this document represents components of the legal health record. It is not the complete legal health record.[facility]
--- OUTSIDE RECORDS SUMMARY | 2025-05-22 12:31 | XMS_ITS | Encounter Summary ---
Author Organization [facility] and [facility] Address [address] [place] [address] Care Team Providers Care Termite Helper Name Role Phone Caitlyn Bowie MD Primary Care Provider +1- [phone] Encounter Details Date Type Department Care Team ([facility] st Contact Info) Description 04/19/2024 Scanned Document INTERFACE DEFAULT [address] [place] [address] System, Provider Not In Social History Tobacco [...] documented as of this encounter Care Teams Termite Helper Relationship Specialty Start Date End Date Caitlyn Bowie MD [address] [address] PCP - General Internal Medicine 05/06/21 documented as of this encounter
--- OUTSIDE RECORDS SUMMARY | 2025-05-22 12:31 | XMS_ITS | Encounter Summary ---
Author Organization [facility] Address [address] [place] [address] Care Team Providers Care Dynamo Repairer Name Role Phone Caitlyn Bowie MD Primary Care Provider +1- [phone] Encounter Details Date Type Department Care Team ([facility] st Contact Info) Description 01/30/2019 Scanned Document [facility] Health Information Management [address] [place] [phone] External, Provider Social History Tobacco Use Types [...] documented as of this encounter Care Teams Dynamo Repairer Relationship Specialty Start Date End Date Caitlyn Bowie MD [address] [address] PCP - General Internal Medicine 05/06/21 Henry Kelly MD Pulmonary Department [address] [place] [address], [address] [place] [address] Physician Pulmonary Disease 09/06/17 06/22/20 documented as of this encounter
--- OUTSIDE RECORDS SUMMARY | 2025-05-22 12:31 | XMS_ITS | Encounter Summary ---
Author Organization [facility] Address [address] [place] [address] Care Team Providers Care Physicist Solid State Name Role Phone Caitlyn Bowie MD Primary Care Provider +1- [phone] Encounter Details Date Type Department Care Team ([facility] st Contact Info) Description 04/11/2019 Scanned Document [facility] Health Information Management [address] [place] [address] External, Provider Social History Tobacco Use Types [...] Caitlyn Bowie MD [address] [address] PCP - General Internal Medicine 05/06/21 Henry Kelly MD Pulmonary Department [address] [place] [address], [address] [place] [address] Physician Pulmonary Disease 09/06/17 06/22/20 documented as of this encounter
--- OUTSIDE RECORDS SUMMARY | 2025-05-22 12:31 | XMS_ITS | Encounter Summary ---
Author Organization [facility] and [facility] Address [address] [place] [address] Care Team Providers Care Fuel Efficient Aircraft Designer Name Role Phone Caitlyn Bowie MD Primary Care Provider +1- [phone] Encounter Details Date Type Department Care Team ([facility] st Contact Info) Description 09/09/2024 Scanned Document INTERFACE DEFAULT [address] [place] [address] System, Provider Not In Social History Tobacco [...] as of this encounter Care Teams Fuel Efficient Aircraft Designer Relationship Specialty Start Date End Date Caitlyn Bowie MD [address] [address] PCP - General Internal Medicine 05/06/21 documented as of this encounter
--- OUTSIDE RECORDS SUMMARY | 2025-05-22 12:31 | XMS_ITS | Clinical Summary ---
Author Organization [facility], Address [address] [place] [address] [place] [address] Phone Care Team Providers Care Lna Name Role Phone Caitlyn Bowie MD Primary Care Provider +1- [phone] Allergies Active Allergy Reactions Criticality Noted Date [...] [facility] [address] [place] [address] Marina Abdi 03/17/2025 Documentation Only [facility] [address] [place] [address] Marina Abdi 03/17/2025 Orders Only [facility] [address] [place] [address] Marina Abdi Smells of urine (Primary [...] Visit [facility] [address] [place] [phone] Rubén Ashraf MD [address] [facility] [place] [address] Health Maintenance Due Date Last Done Comments Influenza Vaccine (#1) 2025 0, 04/22/2019, 04/18/2016 Pneumococcal Vaccine: 50+ Years Completed 08/31/2021, 03/25/2016, 09/17/2015, Additional history exists Hepatitis B Vaccine Aged Out No longe r eligible based on patient's age to complete this topic Insurance [place] Care Teams Lna Relationship Specialty Start Date End Date Caitlyn Bowie MD 3400 [place], [place] PCP - General Internal Medicine 09/24/24
--- OUTSIDE RECORDS SUMMARY | 2025-05-22 12:31 | XMS_ITS | Encounter Summary ---
Author Organization [facility] and [facility] Address [address] [place] [address] Care Team Providers Care Desk Operator Name Role Phone Caitlyn Bowie MD Primary Care Provider +1- [phone] Encounter Details Date Type Department Care Team ([facility] st Contact Info) Description 12/14/2016 Scanned Document [facility] Health Information Management [address] [place] [address] External, Provider Social History Tobacco Use Types [...] as of this encounter Care Teams Desk Operator Relationship Specialty Start Date End Date Caitlyn Bowie MD [address] [address] PCP - General Internal Medicine 05/06/21 Henry Kelly MD Pulmonary Department [address] [facility], [address] [place] [address] Physician Pulmonary Disease 09/06/17 06/22/20 documented as of this encounter
--- OUTSIDE RECORDS SUMMARY | 2025-05-22 12:31 | XMS_ITS | Encounter Summary ---
Author Organization [facility] and [facility] Address [address] [place] [address] Care Team Providers Care Garnett Room Worker Name Role Phone Caitlyn Bowie MD Primary Care Provider +1- [phone] Encounter Details Date Type Department Care Team (Late st Contact Info) Description 12/16/2016 Scanned Document [facility] Health Information Management [address] [place] [address] External, Provider Social History Tobacco Use Types [...] documented as of this encounter Care Teams Garnett Room Worker Relationship Specialty Start Date End Date Caitlyn Bowie MD 3400 [facility] [address] [place] [address] PCP - General Internal Medicine 05/06/21 Henry Kelly MD Pulmonary Department 175 [facility], [address] [place] [address] Physician Pulmonary Disease 09/06/17 06/22/20 documented as of this encounter
--- OUTSIDE RECORDS SUMMARY | 2025-05-22 12:31 | XMS_ITS | Encounter Summary ---
Author Organization [facility] and [facility] Address [address] [place] [address] Care Team Providers Care Hall Tender Name Role Phone Caitlyn Bowie MD Primary Care Provider +1- [phone] Encounter Details Date Type Department Care Team (Late st Contact Info) Description 01/28/2019 Scanned Document [facility] Health Information Management [address] [place] [address] External, Provider Social History Tobacco Use Types [...] documented as of this encounter Care Teams Hall Tender Relationship Specialty Start Date End Date Caitlyn Bowie MD [address] [address] PCP - General Internal Medicine 05/06/21 Henry Kelly MD Pulmonary Department [address] [place] [address], [address] [place] [address] Physician Pulmonary Disease 09/06/17 06/22/20 documented as of this encounter
--- OUTSIDE RECORDS SUMMARY | 2025-05-22 12:31 | XMS_ITS | Encounter Summary ---
Author Organization [facility] and [facility] Address [address] [place] [address] Care Team Providers Care Care Aid Name Role Phone Caitlyn Bowie MD Primary Care Provider +1- [phone] Encounter Details Date Type Department Care Team ([facility] st Contact Info) Description 01/02/2019 Scanned Document [facility] Health Information Management [address] [place] [address] External, Provider Social History Tobacco Use [...] as of this encounter Care Teams Care Aid Relationship Specialty Start Date End Date Caitlyn Bowie MD 3400 [facility] 1 [place] [address] PCP - General Internal Medicine 05/06/21 Henry Kelly MD Pulmonary Department 175 [facility], [address] [place] [address] Physician Pulmonary Disease 09/06/17 06/22/20 documented as of this encounter
--- OUTSIDE RECORDS SUMMARY | 2025-05-22 12:31 | XMS_ITS | Clinical Summary ---
Author Organization [facility] Address [address] [place] [address] Care Team Providers Care Supervisor Rubber Covering Name Role Phone Caitlyn Bowie Primary Care Provider [phone] Allergies Active Allergy Reactions Criticality Noted Date [...] Throat tightness Throat tightness Throat tightness Ipratropium [place] Unknown Medium 12/18/2021 Isosorbide Mononitrate 11/23/2020 Other [...] A & B [facility] Care Teams Supervisor Rubber Covering Relationship Specialty Start Date End Date Caitlyn Bowie [address] [place] [address] PCP - General Internal Medicine 07/18/22
--- OUTSIDE RECORDS SUMMARY | 2025-05-22 12:31 | XMS_ITS | Encounter Summary ---
Author Organization [facility] and [facility] Address [address] [place] [address] Care Team Providers Care Proof Press Operator Name Role Phone Caitlyn Bowie MD Primary Care Provider +1- [phone] Encounter Details Date Type Department Care Team (Late st Contact Info) Description 01/26/2019 Scanned Document [facility] Health Information Management [address] [place] [address] External, Provider Social History Tobacco Use Types [...] as of this encounter Care Teams Proof Press Operator Relationship Specialty Start Date End Date Caitlyn Bowie MD 3400 [facility] 1 [place] [address] PCP - General Internal Medicine 05/06/21 Henry Kelly MD Pulmonary Department 175 [facility], [address] [place] [address] Physician Pulmonary Disease 09/06/17 06/22/20 documented as of this encounter
--- OUTSIDE RECORDS SUMMARY | 2025-05-22 12:31 | XMS_ITS | Encounter Summary ---
Author Organization [facility] Address [address] [place] [address] Care Team Providers Care Harpsichord Maker Name Role Phone Caitlyn Bowie MD Primary Care Provider +1- [phone] Encounter Details Date Type Department Care Team ([facility] st Contact Info) Description 09/23/2024 Scanned Document INTERFACE DEFAULT [address] [place] [address] System, Provider Not In Social History Tobacco [...] documented as of this encounter Care Teams Harpsichord Maker Relationship Specialty Start Date End Date Caitlyn Bowie MD [address] [address] PCP - General Internal Medicine 05/06/21 documented as of this encounter
--- OUTSIDE RECORDS SUMMARY | 2025-05-22 12:31 | XMS_ITS | Encounter Summary ---
Author Organization [facility] and [facility] Address [address] [place] [address] Care Team Providers Care Mails Supervisor Name Role Phone Caitlyn Bowie MD Primary Care Provider +1- [phone] Encounter Details Date Type Department Care Team ([facility] st Contact Info) Description 01/13/2019 Scanned Document [facility] Health Information Management [address] [place] [address] External, Provider Social History Tobacco Use Types [...] MD 3400 [facility] 1 [place] [address] PCP - General Internal Medicine 05/06/21 Henry Kelly MD Pulmonary Department 175 [facility], [address] [place] [address] Physician Pulmonary Disease 09/06/17 06/22/20 documented as of this encounter
--- OUTSIDE RECORDS SUMMARY | 2025-05-22 12:31 | XMS_ITS | Encounter Summary ---
Author Organization [facility] and [facility] Address [address] [place] [address] Care Team Providers Care Clothes Separator Name Role Phone Caitlyn Bowie MD Primary Care Provider +1- [phone] Encounter Details Date Type Department Care Team ([facility] st Contact Info) Description 04/23/2024 Scanned Document INTERFACE DEFAULT [address] [place] [address] System, Provider Not In Social History Tobacco [...] documented as of this encounter Care Teams Clothes Separator Relationship Specialty Start Date End Date Caitlyn Bowie MD [address] [address] PCP - General Internal Medicine 05/06/21 documented as of this encounter
--- OUTSIDE RECORDS SUMMARY | 2025-05-22 12:31 | XMS_ITS | Encounter Summary ---
Author Organization [facility] and [facility] Address [address] [place] [address] Care Team Providers Care Book Critic Name Role Phone Caitlyn Bowie MD Primary Care Provider +1- [phone] Encounter Details Date Type Department Care Team (Late st Contact Info) Description 01/28/2019 Scanned Document [facility] at [address] [place] [address] Cristian Arreguin MBBS [address] [place] [address] Social History Tobacco Use Types [...] as of this encounter Care Teams Book Critic Relationship Specialty Start Date End Date Caitlyn Bowie MD 3400 [facility] [address] 1 [place] [address] PCP - General Internal Medicine 05/06/21 Henry Kelly MD Pulmonary Department 175 [facility], [address] [place] [address] Physician Pulmonary Disease 09/06/17 06/22/20 documented as of this encounter
--- OUTSIDE RECORDS SUMMARY | 2025-05-22 12:31 | XMS_ITS | Encounter Summary ---
Author Organization [facility] Address [address] [place] [address] Care Team Providers Care Electric Spot Welder Name Role Phone Caitlyn Bowie MD Primary Care Provider +1- [phone] Encounter Details Date Type Department Care Team ([facility] st Contact Info) Description 03/12/2019 Scanned Document [facility] Health Information Management [address] [place] [address] External, Provider Social History Tobacco Use Types [...] as of this encounter Care Teams Electric Spot Welder Relationship Specialty Start Date End Date Caitlyn Bowie MD [address] [address] PCP - General Internal Medicine 05/06/21 Henry Kelly MD Pulmonary Department [address] [place] [address], [address] [place] [address] Physician Pulmonary Disease 09/06/17 06/22/20 documented as of this encounter
--- OUTSIDE RECORDS SUMMARY | 2025-05-22 12:32 | XMS_ITS | Encounter Summary ---
Author Organization [facility] and [facility] Address [address] [place] [address] Care Team Providers Care Can Closing Machine Operator Name Role Phone Caitlyn Bowie MD Primary Care Provider +1- [phone] Encounter Details Date Type Department Care Team (Late st Contact Info) Description 12/14/2016 Scanned Document [facility] Health Information Management [address] [place] [address] External, Provider Social History Tobacco Use Types [...] as of this encounter Care Teams Can Closing Machine Operator Relationship Specialty Start Date End Date Caitlyn Bowie MD 3400 [facility] [address] 1 [place] [address] PCP - General Internal Medicine 05/06/21 Henry Kelly MD Pulmonary Department [address] [facility], [address] [place] [address] Physician Pulmonary Disease 09/06/17 06/22/20 documented as of this encounter
--- OUTSIDE RECORDS SUMMARY | 2025-05-22 12:32 | XMS_ITS | Encounter Summary ---
Author Organization [facility] and [facility] Address [address] [place] [address] Care Team Providers Care Museum Host/Hostess Name Role Phone Caitlyn Bowie MD Primary Care Provider +1- [phone] Encounter Details Date Type Department Care Team (Late st Contact Info) Description 07/27/2016 Scanned Document Thoracic Oncology Program at [facility] [address] [address] Suzy Kong MD 6 [place] [address] Social History Tobacco Use Types [...] as of this encounter Care Teams Museum Host/Hostess Relationship Specialty Start Date End Date Caitlyn Bowie MD [address] [address] PCP - General Internal Medicine 05/06/21 Henry Kelly MD Pulmonary Department [address] [place] [address], [address] [place] [address] Physician Pulmonary Disease 09/06/17 06/22/20 documented as of this encounter
--- OUTSIDE RECORDS SUMMARY | 2025-05-22 12:32 | XMS_ITS | Encounter Summary ---
Author Organization [facility] and [facility] Address [address] [place] [address] Care Team Providers Care Outside Sales Account Manager Name Role Phone Caitlyn Bowie MD Primary Care Provider +1- [phone] Encounter Details Date Type Department Care Team ([facility] st Contact Info) Description 10/23/2024 Scanned Document INTERFACE DEFAULT [address] [place] [address] System, Provider Not In Social History Tobacco [...] of this encounter Care Teams Outside Sales Account Manager Relationship Specialty Start Date End Date Caitlyn Bowie MD [address] [address] PCP - General Internal Medicine 05/06/21 documented as of this encounter
--- OUTSIDE RECORDS SUMMARY | 2025-05-22 12:32 | XMS_ITS | Encounter Summary ---
Author Organization [facility] and [facility] Address [address] [place] [address] Care Team Providers Care Towel Cabinet Repairer Name Role Phone Caitlyn Bowie MD Primary Care Provider +1- [phone] Encounter Details Date Type Department Care Team ([facility] st Contact Info) Description 07/08/2016 Scanned Document [facility] Health Information Management [address] [place] [address] External, Provider Social History Tobacco Use Types [...] [facility] [place], [place], [facility] documented in this encounter Visit Diagnoses Not on filedocumented in this encounter Additional Health Concerns Infection Onset Date Last Indicated Resolved Time COVID-19 03/05/2022 03/05/2022 03/15/2022 7:18 PM EDT documented as of this encounter Care Teams Towel Cabinet Repairer Relationship Specialty Start Date End Date Caitlyn Bowie MD 3400 [facility] 1 [place] [address] PCP - General Internal Medicine 05/06/21 Henry Kelly MD Pulmonary Department 175 [facility], [address] [place] [address] Physician Pulmonary Disease 09/06/17 06/22/20 documented as of this encounter
--- OUTSIDE RECORDS SUMMARY | 2025-05-22 12:32 | XMS_ITS | Encounter Summary ---
Author Organization [facility] Address [address] [place] [address] Care Team Providers Care Medical Records Analyst Name Role Phone Caitlyn Bowie MD Primary Care Provider +1- [phone] Encounter Details Date Type Department Care Team ([facility] st Contact Info) Description 10/10/2016 Scanned Document [facility] Health Information Management [address] [place] [address] External, Provider Social History Tobacco Use Types [...] as of this encounter Care Teams Medical Records Analyst Relationship Specialty Start Date End Date Caitlyn Bowie MD [address] [address] PCP - General Internal Medicine 05/06/21 Herny Kelly MD Pulmonary Department 175 [facility], [address] [place] [address] Physician Pulmonary Disease 09/06/17 06/22/20 documented as of this encounter
--- OUTSIDE RECORDS SUMMARY | 2025-05-22 12:32 | XMS_ITS | Encounter Summary ---
Author Organization [facility] Address [address] [place] [address] Care Team Providers Care Oil Well Logging Engineer Name Role Phone Caitlyn Bowie MD Primary Care Provider +1- [phone] Encounter Details Date Type Department Care Team (Late st Contact Info) Description 07/27/2016 Scanned Document Thoracic Oncology Program at [facility] [address] [address] Suzy Kong MD 6 [place] [address] Social History Tobacco Use Types [...] of this encounter Care Teams Oil Well Logging Engineer Relationship Specialty Start Date End Date Caitlyn Bowie MD [address] [address] PCP - General Internal Medicine 05/06/21 Henry Kelly MD Pulmonary Department [address] [place] [address], [address] [place] [address] Physician Pulmonary Disease 09/06/17 06/22/20 documented as of this encounter
--- OUTSIDE RECORDS SUMMARY | 2025-05-22 12:32 | XMS_ITS | Encounter Summary ---
Author Organization [facility] and [facility] Address [address] [place] [address] Care Team Providers Care Shirt Maker Name Role Phone Caitlyn Bowie MD Primary Care Provider +1- [phone] Encounter Details Date Type Department Care Team (Late st Contact Info) Description 06/17/2016 Scanned Document [facility] Health Information Management [address] [place] [address] External, Provider Social History Tobacco Use Types [...] IMG SCAN REPORTS Final Result [facility] [place], [place], [facility] documented in this encounter Visit Diagnoses Not on filedocumented in this encounter Additional Health Concerns Infection Onset Date Last Indicated Resolved Time COVID-19 03/05/2022 03/05/2022 03/15/2022 7:18 PM EDT documented as of this encounter Care Teams Shirt Maker Relationship Specialty Start Date End Date Caitlyn Bowie MD 3400 [facility] [address] 1 [place] [address] PCP - General Internal Medicine 05/06/21 Henry Kelly MD Pulmonary Department 175 [facility], [address] [place] [address] Physician Pulmonary Disease 09/06/17 06/22/20 documented as of this encounter
--- OUTSIDE RECORDS SUMMARY | 2025-05-22 12:32 | XMS_ITS | Encounter Summary ---
Author Organization [facility] and [facility] Address [address] [place] [address] Care Team Providers Care Metal Numerical Tool Programmer Name Role Phone Caitlyn Bowie MD Primary Care Provider +1- [phone] Encounter Details Date Type Department Care Team ([facility] st Contact Info) Description 06/17/2016 Scanned Document [facility] Health Information Management [address] [place] [address] External, Provider Social History Tobacco Use Types [...] End Date Caitlyn Bowie MD [address] [address] PCP - General Internal Medicine 05/06/21 Henry Kelly MD Pulmonary Department 175 [facility], [address] [place] [address] Physician Pulmonary Disease 09/06/17 06/22/20 documented as of this encounter
--- OUTSIDE RECORDS SUMMARY | 2025-05-22 12:32 | XMS_ITS | Encounter Summary ---
Author Organization [facility] and [facility] Address [address] [place] [address] Care Team Providers Care Bluing Oven Tender Name Role Phone Caitlyn Bowie MD Primary Care Provider +1- [phone] Reason for Referral * Imaging (Routine) - Closed Specialty Diagnoses / Procedures Referred By Arthur dobbs Referred To Contact Procedures [place] Lung Ventilation Perfusion ([facility]) External, Provider Referral ID Status Reason Start Date Expiration Date Visits Re quested Visits Authorized [id number] Closed 08/22/2016 08/22/2017 4 4 Encounter Details Date Type Department Care Team (Late st Contact Info) Description 08/22/2016 Scanned Document Thoracic Oncology Program at [address] [address] External, Provider Social History Tobacco Use Types [...] SCAN REPORTS Final Result Performing Organization Address [facility] Co de Phone Number [facility] * CT Result Scan (07/27/2016) us Provider External IMG SCAN REPORTS Final Result Performing Organization Address [facility] Co de Phone Number [facility] * Cardiac EKG Result Scan (07/27/2016) us Provider External CV CARDIAC REPORT (CVR) Final Result Performing Organization Address [facility] Co de Phone Number [facility] * CT Result Scan (07/27/2016) us Provider External IMG SCAN REPORTS Final Result Performing Organization Address [facility] de Phone Number [facility] * Lab Scan (07/27/2016) Blood specimen (specimen) us Provider External LAB BLOOD ORDERABLES Final Res ult Performing Organization Address [facility] Co de Phone Number [facility] * [place] Lung Ventilation Perfusion ([facility]) (07/27/2016) Anatomical Region Laterality Modality Chest, [...] [facility] Max 1 [place] [address] PCP - General Internal Medicine 05/06/21 Henry Kelly MD Pulmonary Department 175 [facility], [address] [place] [address] Physician Pulmonary Disease 09/06/17 06/22/20 documented as of this encounter
--- OUTSIDE RECORDS SUMMARY | 2025-05-22 12:32 | XMS_ITS | Encounter Summary ---
Author Organization [facility] and [facility] Address [address] [place] [address] Care Team Providers Care Advertising Internship Name Role Phone Caitlyn Bowie MD Primary Care Provider [phone]- [phone] Encounter Details Date Type Department Care Team (Late st Contact Info) Description 07/27/2016 Scanned Document Thoracic Oncology Program at [facility] [address] [address] Suzy Kong MD [address] [place] [address] Social History Tobacco Use Types [...] as of this encounter Care Teams Advertising Internship Relationship Specialty Start Date End Date Caitlyn Bowie MD [address] [id number] PCP - General Internal Medicine 05/06/21 Henry Kelly MD Pulmonary Department [address] [place] [address], [address] [place] [address] Physician Pulmonary Disease 09/06/17 06/22/20 documented as of this encounter
== END 2025-05-22 10:18 | disposition home or self-care (01) ==
LOC: HO.CT 10:17
PROVIDERS: PCP Internal Medicine; Visit Provider Hospitalist
DX: R07.81 Pleurodynia (principal); R93.89 Abnormal findings on diagnostic imaging of other specified body structures
CPT/HCPCS: 71275; Q9967

== ENCOUNTER → 2025-05-22 10:19 | Outpatient (BNV) | payer MEDICARE, SELFPAY | PROVIDERS: PCP Internal Medicine; Visit Provider Radiology Body Imaging | DX: J90 Pleural effusion, not elsewhere classified (principal); I31.39 Other pericardial effusion (noninflammatory); Z90.2 Acquired absence of lung [part of] | CPT/HCPCS: 71275 ==

== ENCOUNTER 2025-05-29 11:23 | Outpatient (AMB) | payer MEDICARE, SELFPAY ==
--- NOTE | 2025-05-29 11:25 | A.OFFVIS_ITS ---
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: No Allergies morphine Allergy (Severe, Verified 05/29/25 11:35) Itching avocado (AVOCADO) Allergy (Mild, Verified 05/29/25 11:35) ITCHY THROAT, RASH azithromycin (AZITHROMYCIN) Allergy (Mild, Verified 05/29/25 11:35) ITCHY THROAT, RASH barium iodide (BARIUM IODIDE) Allergy (Mild, Verified 05/29/25 11:35) ITCHY THROAT, RASH barium sulfate Allergy (Mild, Verified 05/29/25 11:35) Itch bee pollen (BEE STINGS) Allergy (Mild, Verified 05/29/25 11:35) ITCHY THROAT, RASH ciprofloxacin (From CIPRO) Allergy (Mild, Verified 05/29/25 11:35) ITCHY THROAT, RASH clarithromycin (From BIAXIN) Allergy (Mild, Verified 05/29/25 11:35) ITCHY THROAT, RASH diatrizoate meglumine (From GASTROGRAFIN) Allergy (Mild, Verified 05/29/25 11:35) ITCHY THROAT, RASH diatrizoate sodium (From GASTROGRAFIN) Allergy (Mild, Verified 05/29/25 11:35) ITCHY THROAT, RASH diclofenac (From VOLTAREN) Allergy (Mild, Verified 05/29/25 11:35) ITCHY THROAT, RASH erythromycin base (ERYTHROMYCIN BASE) Allergy (Mild, Verified 05/29/25 11:35) ITCHY THROAT, RASH gentamicin (GENTAMICIN) Allergy (Mild, Verified 05/29/25 11:35) ITCHY THROAT, RASH Iodinated Contrast Media (IVP DYE) Allergy (Mild, Verified 05/29/25 11:35) ITCHY THROAT, RASH levofloxacin (From LEVAQUIN) Allergy (Mild, Verified 05/29/25 11:35) ITCHY THROAT, RASH metronidazole (From FLAGYL) Allergy (Mild, Verified 05/29/25 11:35) ITCHY THROAT, RASH moxifloxacin (From AVELOX) Allergy (Mild, Verified 05/29/25 11:35) ITCHY THROAT, RASH Penicillins (PENICILLINS) Allergy (Mild, Verified 05/29/25 11:35) ITCHY THROAT, RASH shrimp (SHRIMP) Allergy (Mild, Verified 05/29/25 11:35) ITCHY THROAT, RASH Sulfa (Sulfonamide Antibiotics) (SULFA (SULFONAMIDE ANTIBIOTICS)) Allergy (Mild, Verified 05/29/25 11:35) ITCHY THROAT, RASH vancomycin (VANCOMYCIN) Allergy (Mild, Verified 05/29/25 11:35) ITCHY THROAT, RASH clindamycin Adverse Reaction (Intermediate, Verified 05/29/25 11:35) Unknown spironolactone Adverse Reaction (Intermediate, Verified 05/29/25 11:35) diarrhea HPI Comments Details: The patient is a 80 y/o woman with a complicated history which includes: COPD, KANDY, pulmonary HTN, history pulmonary emboli on chronic anticoagulation, lung CA Stage IIIA s/o neoadjuvant chemoradiation and Left upper lobe lobectomy. She did have a CT scan today that I personally reviewed. Has not been personally read by the radiologist. Based on my reading she has some pulmonary nodules some that are new 4 mm in the right major fissure area. Other nodules are stable. Other post operative and pulmonary fibrotic changes stable. The patient should get a CT scan in 6 months. Also to note, she did not tolerate the Incruse nor budesonide. Will consider Daliresp. She was admitted to [facility] with diverticulitis. She was placed on IV antibiotics but she left against medical advice because she did not like the antibiotic options. In the meantime she was having some issues with coughing up some blood. She is also concerned because on her visit to [facility] she did have a CT scan of the chest and she was told that she had significant scarring of her lungs in addition to lung volume loss. I have not looked at the CT scan back in reassured her that she has had this radiation fibrosis for long time and volume loss due to the scarring was present before. We did review her perfusion scan demonstrating no defects to suggest any blood clots. Interestingly in the quantitative study the patient did have 81% of the blood flow going to her right lung and 18% going to the left. This is likely due to her previous surgery and also radiation changes. 11/04/2024 the patient is here for a pulmonary follow-up visit. Since we last spoke she started developing abdominal pain. She did go to the ER where she was diagnosed with diverticulitis based on a CAT scan showing fat stranding close to the areas of diverticulosis in the left descending colon. The patient was not given any antibiotics because of all her allergies. She then followed up with the GI doctor called and it was recommended that she go back to the ER. She has not started any therapy for this. She has been feeling a little dehydrated from the lack of p.o. intake as she is doing significant amount of bowel rest. She has tolerated cephalosporins in the past. I will go ahead and send her Vantin to the pharmacy that she can use. She has also tolerated ceftriaxone in the hospital that has also been helpful for her. She does not tolerate clindamycin anymore and unfortunately she does not call tolerate the Flagyl either so we can not provide her with any anaerobic coverage. Still though Vantin has a broad spectrum coverage and should help. If her symptoms worsen though she should definitely go to the ER specially she is getting dehydrated or for abdominal comfort is worse or if she started developing fevers or chills or any other concerning symptoms. As far as her sleep apnea the patient did undergo a sleep study. This was done in [place]. It was recommended that based on her sleep apnea noted on his study that she start CPAP therapy. I did not see that they checked the end-tidal CO2 but at this point I think is reasonable for her to start CPAP on 2 L of oxygen and if she does not tolerate that if she fails CPAP we can quickly switch over to BiPAP anyway. Will go ahead and request a replacement APAP through [employer], [employer]. And therefore she can get her supplies as well. If she has a machine prior to her next appointment she can always bring it in so we can review with her. From a respiratory status she is okay she is using her oxygen with good effect. The patient continues on the Lasix as well she is taking 160 mg daily total. Because of her significant weight loss decreased p.o. intake I did have her only take half the dose for couple days in order for her to read a Barkley very and then go back to the full dose when she is able to take by mouth. 11/21/2024 the patient is here for pulmonary follow-up visit. The patient overall has been feeling better from the diverticulitis. She did complete the Vantin. She still has some on hold in case her symptoms worsened again. She will be following up with Dr. Fang soon. In the meantime respiratory status i s stable. She does have bowel some dyspnea and hypoxia. She is already on high dose of diuretics. She is going to be following up a heart failure specialist. I do believe that is Jardiance may be a potential option for her. In the meantime she continues use her respiratory therapy with good effect. She continues use her oxygen did effect. She also continues use the BiPAP every night. BiPAP therapy has been affecting beneficial. She does use it for more than 4 hours a night. She is complaining of a dry mouth. I did increase the humidity a little bit. She can always increase in more from home. In the meantime her BiPAP is very old. Will request a replacement BiPAP at this time with a local [employer] company, [employer]. Otherwise patient follow-up in 2-3 months. If she has any issues prior to this she will call for an earlier assessment. 12/26/2024 the patient is here for sick visit. The patient had a an event at home where she was exposed to a smoke due to vinegar and also baking soda as she was trying to clean a pot. She did develop some difficulty breathing and a significant cough. She did call the office and we had increased her prednisone to 20 mg. Seems that she is getting better although she has a still barky cough. Still feels like she has a very sore trachea. Likely from respiratory dysfunction syndrome from the initial exposure to the fumes and smoke. She is having hard time sleeping having some chest discomfort. Will try some cough medication with codeine to try to alleviate her symptoms. She is going to wean down to the baseline prednisone of 5 mg. In the meantime she continues have daytime drowsiness. She has been using just oxygen though. She has had 2 sleep studies demonstrating no evidence of any significant sleep apnea. Therefore, will hold off on CPAP therapy at this time. Will go ahead and check a blood gas to see if her CO2 is elevated. If her CO2 is elevated then we have to consider treatment for chronic hypercarbic respiratory failure. The patient also has been complaining of dyspnea on exertion. Moderate severity. Will go ahead and start her on PFTs and pulmonary rehabilitation. 01/02/2025 the patient is here for a pulmonary follow-up visit. The patient has been using the BiPAP. The BiPAP therapy appears to be affecting beneficial by though she is swallowing a lot of air and getting some bloating. I did decrease the pressures were 18/12 to 16/8. She also had a blood gas demonstrating a pCO2 of 59 mmHg. The patient therefore benefits from the BiPAP. The machine now is older and needs to be replaced. We will go ahead and request an overnight oximetry to see if we can have her qualify for BiPAP again with [facility]. Otherwise we may have to stay with [facility] about getting a replacement BiPAP through them. The patient did have pulmonary function studies and I did personally reviewed him. Appears to have interval worsening overall with now moderate obstruction consistent with moderate COPD and also moderate restrictive ventilatory defect which is also worse. In addition to the severe diffusion impairment likely secondary to the above findings and her underlying pulmonary vascular disease. This all explained the need for unconfirmed Ingrid for the oxygen supplementation. She continues to use a nebulizer. Her machine is no longer working correctly therefore we will request a replacement. And I do feel strongly about her performing pulmonary rehabilitation. In the meantime she did have a twisting of her ankle and she is having some right ankle pain and bruising so therefore will have her get an x-ray of that before she starts rehab. 02/18/2025 the patient is here for a pulmonary follow-up visit. She is still struggling with her respiratory symptoms. Sometimes developing chest tightness and not sure if his cardiac or pulmonary. The last time she was in the hospital was back in early February. She had an x-ray which was without any acute issues just a chronic left-sided pleural effusion. Her blood work was okay except for slightly elevated troponins which have been elevated since October. The patient has been on the diuretics. She seems to be tolerating them well in her volume status is overall better. Recently though she was having issues with her left eye having some eye pain and blurriness and she went to see the taker off drying kiln and she was diagnosed with optic neuritis. She does have a history of connective tissue conditions and question of multiple sclerosis when she was very young. Therefore, is not clear at this point but she did have increased dose of prednisone given. And she is going to taper it down. I did encourage her to make sure she follows up with ophthalmology to make sure that the neuritis subsides. In the meantime the patient is been using the BiPAP. Unfortunately though we did an overnight oximetry which still showing significant hypoxia and she will need to have increased oxygen needs with the BiPAP and also she had a blood gas demonstrating an elevated pCO2 of 61 mmHg suggesting that she is failing BiPAP. The patient needs to go on a noninvasive ventilator. She does not have obstructive sleep apnea. The patient does have chronic hypoxic and hypercarbic respiratory failure due to her COPD. And at this point she carries a poor prognosis and high risk so hospitalizations. Therefore, she needs to be on a noninvasive ventilator to improve her gas exchange decrease her hospitalizations and improve her prognosis. 03/28/2025 the patient is here for sick visit. She has been developing worsening cough chest tightness pleuritic chest pain primarily on the left side. Moderate severity. She also complains of a sore throat. The cough itself is been croupy in nature. Difficult to expectorate. The patient did call we start her on doxycycline in addition to increase her prednisone baseline. She did have a chest x-ray in addition to a sinus x-ray. Sinuses were clear and the chest x- ray demonstrates a persistent left-sided pleural effusion which appears to be just a slight increased. The patient also had blood work. She does have an elevated white count with a decreasing the lymphocyte count suggesting the possi bility of a viral syndrome. We did test her for flu RSV and COVID in the there were all negative. The patient does have some wheezing on the left lung which is asymmetrical. Likely has a component of tracheobronchitis with a croupy cough. The patient will continue on the doxycycline. In the meantime will go ahead and increase the prednisone to 20 mg and slowly taper it down. The patient also will provide cough syrup. Will plan to do a CAT scan once she is better to follow-up with her nodular densities and history of cancer in the abnormal chest x-ray. 04/10/2025 the patient is here for a pulmonary follow-up visit. Overall she is feeling little better from the respiratory status. Her chest tightness has subsided and the cough has a sinus. She is tapering down on the prednisone. T he patient continues use her respiratory therapy with partial improvement. She is also struggling with her sleep. The patient does have significant history of sleep apnea and also chronic hypercarbic respiratory failure. Unfortunately she had a sleep study recently but it did not measure her end-tidal CO2 is therefore it is suboptimal and nondiagnostic. Will request a repeat sleep study at [facility] in order to follow her end-tidal CO2 and assess her for iVAPS were AVAP therapy. She has had 2 episodes of chest heaviness along with dizziness with a near syncopal type of reaction. The symptoms last sec but are pretty significant. She did try to get a Holter monitoring the past but she had an allergic reaction to the tape. She will follow-up with Cardiology regarding any other alternative testing that she can have done to assess for cardiac arrhythmias. The patient follow-up in 6-8 weeks. 05/08/2025 the patient is here for hospital follow-up visit. She was admitted to the hospital with congestive heart failure. During the hospital stay she did have a chest x-ray demonstrating slightly worsening left-sided pleural effusion which is very chronic issue for her and likely worsen with the increased volume overload status. The patient did have an echocardiogram demonstrating diastolic dysfunction. In addition to that the mitral clip seems to be working just fine. Her pulmonary pressures were stated to be normal. The patient did get diuresed. She was started recently on Jardiance but she has not picked up the prescription. She will be starting it tomorrow. I do believe this would be a very good option for her. As far as her respiratory status seems to be stable. She seems to be using the oxygen with good effect. She understands that when she goes into heart failure her oxygen levels will decrease specially because she has no pulmonary reserve. In addition to that she continues have daytime drowsiness. She did undergo a sleep study at [facility] although she has a hard time sleeping. Her report she will be coming up in the next week. Will have her come back in 1-2 weeks and we can review those results. In the meantime she is going to continue with the current respiratory therapy. Continue with the oxygen therapy and using her BiPAP at nighttime. 05/16/2025 the patient is here for sick visit. She is started developing chest tightness shortness of breath tachycardia and hypoxia. She was at the supermarket and her oxygen dropped about 86%. She was very nervous and anxious about it. Ultimately she went home and she had her friend listen to her lungs and she was wheezy. The patient received albuterol treatment and did improve her symptoms. She does have her oxygen that she uses regularly. We did perform a 6 minute walk test here and she actually did previously maintaining a pulse ox between 94-90% with activity. The patient does have some wheezing rhonchi on exam. As far as exposure, there is a child that she indirectly had contact with RSV. We are going to test her today but we do not have 2 kids. If she does develop any worsening symptoms we can always have her get swab or she can go to the ER. For now though she does have wheezing and tightness so she is going to start the albuterol therapy follow up with the incentive spirometer follow up with the Acapella valve twice a day. In addition to that she will increase her prednisone from 2.5 mg to 15 mg with a taper start Vantin. She does take Coumadin so she needs to make sure she let the Coumadin clinic note so they can follow her levels closely. Her last INR was 1.5. The patient feels very tired and weak. We did talk about considering stimulant therapy but since she is having a likely ongoing respiratory illness will hold off as she may be just having symptoms of fatigue from a an ongoing illness. She did have a sleep study done at [facility]. I have not gotten the results. Will send review them. In addition to that she is scheduled to have a repeat CAT scan coming up. 05/29/2025 the patient is here for a follow-up visit. Overall she is doing okay from a respiratory status. She did stop the cephalosporin after around 7 days because of some swelling of her glands. Therefore she stopped it. She did call. And she is now completing the doxycycline. She has not know the day left. We did review her CT scan of the chest that she had recently was a CTA that ruled out PE. The patient still had some slight remnants of a pneumonia from the right lower lobe area. In addition to that a dilated esophagus with some debris suggesting the possibility of micro aspirations. I did request that she sleeps elevated. She is going to have some body lift up the head of the bed for her. In the meantime the patient can not have a barium swallow nor a Gastrografin study because of significant allergic reactions. She may have some dysmotility issues that is resulting in his so therefore will request a gastric emptying study to assess for dysmotility. If she does have dysmotility that we can consider a promotility agent. She does continue back on the 2.5 mg of prednisone. She is tolerating that well. She continues with respiratory therapy. The patient continues to have daytime drowsiness. Hilton score is elevated 06/02. She has also has a history of chronic hypoxic respiratory failure. She had been on BiPAP before. The patient did undergo a sleep study at [facility] which I personally reviewed. The patient did have evidence of sleep apnea as expected with a history. In addition to that she was titrated on PAP therapy. She was placed on CPAP and then titrated to BiPAP. She did a lot better on the BiPAP. Will go ahead and request a BiPAP a 06/16 based on their recommendations. She also has been stating some diaphoretic episodes. She is wondering if it could be the Jardiance. She feels like it is mainly related to hypoglycemia. I did reach out to Cardiology to see if they can give her lower dose of Jardiance. I did advise her not to stop the medicine appropriately. [facility] Medical History (Updated 05/29/25 @ 11:58 by Henry Kelly MD) Dysphagia Anti-phospholipid antibody syndrome Chest pain Chest pain Ankle pain Chronic hypercapnic respiratory failure KANDY treated with BiPAP COPD (chronic obstructive pulmonary disease) Open wound Warfarin anticoagulation Complex sleep apnea syndrome Leg pain Anemia Tachycardia DVT (deep venous thrombosis) Compression fracture of body of thoracic vertebra ASD (atrial septal defect) Pleuritic chest pain History of COVID-19 Chronic anticoagulation Hypothyroidism GERD (gastroesophageal reflux disease) Hyperlipidemia Hypertension Factor 5 Leiden mutation, heterozygous History of non-ST elevation myocardial infarction (NSTEMI) Hypoxia Anxiety PTSD (post-traumatic stress disorder) Hemoptysis Dyspnea Tracheobronchitis CLARA positive Diverticulitis Allergic bronchitis (HFpEF) heart failure with preserved ejection fraction Subarachnoid bleed Insomnia Hypogammaglobulinemia Chronic respiratory failure Arterial insufficiency of lower extremity Complex regional pain syndrome i of right lower limb Post herpetic neuralgia Pulmonary hypertension Pericardial effusion Pulmonary emboli Pleural effusion Radiation fibrosis of lung Pneumonitis Pulmonary nodules Lung cancer Surgical History History of colonoscopy History of lung surgery History of tonsillectomy History of hysterectomy S/P mitral valve clip implantation History of cardiac cath Family History Sister No problems noted. Mother Cardiovascular disease Daughter Tachycardia Other KANDY (obstructive sleep apnea) Social History Household Members: None Housing: House Do you presently have visiting nurse or other home services: No Alcohol intake: never Comment: stand by assist with ambulation Patient Tobacco Use Status: Never used Tobacco e-Cigarette/Vaping Use: Never Used Second Hand Smoke Exposure: No Advance Directives Date on File: 06/15/22 service: No Current occupational status: retired Review of Systems Const Denies chills, Reports fatigue, Denies fever(s), Denies weight gain and Denies weight loss Eyes Denies change in vision ENT Denies dizziness Card Denies chest pain, Reports leg edema, Denies lightheadedness, Reports palpitations, Reports dyspnea on exertion, Denies orthopnea and Denies other Resp Reports cough, Reports dyspnea on exertion and Reports wheezing GI Denies hematochezia and Denies change in stool character Musc Denies abnormal gait, Denies muscle weakness, Denies numbness, Denies radiating pain into limb and Denies tingling Skin/Breast Reports change in pigmentation, Reports skin swelling and Reports unusual bruising Neuro Denies abnormal gait, Denies dizziness, Denies numbness and Denies tingling Psych Reports depression Endo Reports fatigue and Reports palpitations Casey/Lymph Reports easy bruising Aller/Immun Reports wheezing Physical Exam Vital Signs: Last Vital Signs Pulse 81 05/29/25 11:26 BP 120/54 L 05/29/25 11:26 Pulse Ox 97 05/29/25 11:26 Oxygen Delivery Method Room Air 05/29/25 11:26 Last Vital Signs Temp 97.7 F 06/20/22 08:00 Pulse 90 06/20/22 08:00 Resp 16 06/20/22 08:00 BP 137/60 06/20/22 08:00 Pulse Ox 93 06/20/22 08:00 O2 Del Method 06/20/22 08:00 O2 Flow Rate 2 06/20/22 08:00 FiO2 45 06/14/22 11:07 BMI result Body Mass Index 23.0 Const General: cooperative, comfortable, alert and awake Orientation/consciousness: patient oriented x3 HEENT Head: Yes atraumatic Eyes General: appearance normal, both eyes and all related structures Neck Neck: Yes trachea midline, Yes supple and Yes no JVD Chest Chest palpation & inspection: tenderness rib (right side) Resp Effort & Inspection: normal respiratory effort and No prolonged expiratory phase Auscultation: no rales, no rhonchi, wheezes and diminished lung sounds Cardio Rate: regular rate Rhythm: regular rhythm Heart sounds: S1 normal heart sound present and S2 normal heart sound present GI Palpation (GI): Soft to palpation and Tenderness to palpation present (GI) in the LLQ Auscultation: normal bowel sounds Skin General skin exam: purpura and scars Neuro General: patient oriented x3 and no focal motor deficits Extrem Right lower extremity: edema Assessment & Plan Assessment & Plan (1) COPD (chronic obstructive pulmonary disease): Code(s): J44.9 - Chronic obstructive pulmonary disease, unspecified Category: Medical Qualifiers: COPD type: chronic bronchitis Chronic bronchitis type: simple Qualified Code(s): J41.0 - Simple chronic bronchitis (2) Cough: Code(s): R05.9 - Cough, unspecified Category: Medical Qualifiers: Cough type: subacute Qualified Code(s): R05.2 - Subacute cough (3) Chronic hypercapnic respiratory failure: Code(s): J96.12 - Chronic respiratory failure with hypercapnia Category: Medical (4) Pulmonary hypertension: Comment: severe based on RHC, moderate based on recent echo Code(s): I27.20 - Pulmonary hypertension, unspecified Category: Medical (5) Pulmonary nodules: Code(s): R91.8 - Other nonspecific abnormal finding of lung field Category: Medical (6) Chronic respiratory failure: Code(s): J96.10 - Chronic respiratory failure, unspecified whether with hypoxia or hypercapnia Category: Medical Qualifiers: Respiratory failure complication: hypoxia and hypercapnia Qualified Code(s): J96.11 - Chronic respiratory failure with hypoxia; J96.12 - Chronic respiratory failure with hypercapnia (7) Radiation fibrosis of lung: Code(s): J70.1 - Chronic and other pulmonary manifestations due to radiation Category: Medical (8) (HFpEF) heart failure with preserved ejection fraction: Code(s): I50.30 - Unspecified diastolic (congestive) heart failure Category: Medical Qualifiers: Heart failure chronicity: chronic Qualified Code(s): I50.32 - Chronic diastolic (congestive) heart failure (9) Lung cancer: Code(s): C34.90 - Malignant neoplasm of unspecified part of unspecified bronchus or lung Category: Medical Qualifiers: Laterality: left Lung location: upper lobe of lung Qualified Code(s): C34.12 - Malignant neoplasm of upper lobe, left bronchus or lung (10) Pleural effusion: Code(s): J90 - Pleural effusion, not elsewhere classified Category: Medical (11) KANDY (obstructive sleep apnea): Code(s): G47.33 - Obstructive sleep apnea (adult) (pediatric) Category: Medical (12) Dysphagia: Code(s): R13.10 - Dysphagia, unspecified Category: Medical Plan prednisone 2.5mg QOD cough medicine Ambien for sleep continue Advair ASHA as needed continue ASHA (xopenex) as needed CPT with acapella valve fluticasone Oxygen 2L/pulse with activity and sleep. POC Inogen G5 start BIPAP 12/8 based on PSG [facility] duiresis as tolerated, started Jardience. Pt concerned about side effects ?lower dose declined Ohtuvayre gastric emptying study F/U 3-6 weeks Orders: Orders NM gastric emptying study Today I50.33 - Acute on chronic diastolic (congestive) heart failure, R13.10 - Dysphagia, unspecified Coding Level of Care Code Complex visit Add On G2211 Diagnoses Simple chronic bronchitis J41.0 COPD type: chronic bronchitis Chronic bronchitis type: simple Subacute cough R05.2 Cough type: subacute Chronic hypercapnic respiratory failure J96.12 Pulmonary hypertension I27.20 Pulmonary nodules R91.8 Chronic respiratory failure with hypoxia and hypercapnia J96.11; J96.12 Respiratory failure complication: hypoxia and hypercapnia Radiation fibrosis of lung J70.1 Chronic heart failure with preserved ejection fraction I50.32 Heart failure chronicity: chronic Malignant neoplasm of upper lobe of left lung C34.12 Laterality: left Lung location: upper lobe of lung Pleural effusion J90 KANDY (obstructive sleep apnea) G47.33 Dysphagia R13.10 Time Spent (min) 60
[2025-05-29 11:26] VITALS: BP 120/54; PULSE 81; O2SAT 97
== END 2025-05-29 12:06 | disposition home or self-care (01) ==
LOC: HO.HPS 11:24
PROVIDERS: PCP Internal Medicine; Visit Provider Hospitalist
DX: J41.0 Simple chronic bronchitis (principal); R05.2 Subacute cough; J96.12 Chronic respiratory failure with hypercapnia; I27.20 Pulmonary hypertension, unspecified; R91.8 Other nonspecific abnormal finding of lung field; J96.11 Chronic respiratory failure with hypoxia; J70.1 Chronic and other pulmonary manifestations due to radiation; I50.32 Chronic diastolic (congestive) heart failure; C34.12 Malignant neoplasm of upper lobe, left bronchus or lung; J90 Pleural effusion, not elsewhere classified; G47.33 Obstructive sleep apnea (adult) (pediatric); R13.10 Dysphagia, unspecified
CPT/HCPCS: 99214; G2211

== ENCOUNTER → 2025-05-29 11:23 | Outpatient (BNVA) | payer MEDICARE, SELFPAY | PROVIDERS: PCP Internal Medicine; Visit Provider Hospitalist | DX: J44.1 Chronic obstructive pulmonary disease with (acute) exacerbation (principal); R05.2 Subacute cough; J96.12 Chronic respiratory failure with hypercapnia; J96.11 Chronic respiratory failure with hypoxia; R91.8 Other nonspecific abnormal finding of lung field; C34.12 Malignant neoplasm of upper lobe, left bronchus or lung; J70.1 Chronic and other pulmonary manifestations due to radiation; G47.33 Obstructive sleep apnea (adult) (pediatric); Z99.89 Dependence on other enabling machines and devices; Z79.01 Long term (current) use of anticoagulants; I27.20 Pulmonary hypertension, unspecified | CPT/HCPCS: 99212 ==

== ENCOUNTER 2025-06-12 14:42 | Outpatient (REF) | payer MEDICARE, SELFPAY ==
[2025-06-12 15:43] LABS: Appearance Urine Clear; Glucose Urine UA >=1000 mg/dL (Negative); PH 7.0 (5.0-9.0); Specific Gravity - Urine 1.015 (1.005-1.025); UMIC TRIGGER UACC YES
== END 2025-06-12 14:43 | disposition home or self-care (01) ==
LOC: HO.LAB 14:42
PROVIDERS: PCP Internal Medicine; Visit Provider Internal Medicine Cardiovascular Disease
DX: R39.9 Unspecified symptoms and signs involving the genitourinary system (principal)
CPT/HCPCS: 81001; 81003

== ENCOUNTER 2025-06-18 10:59 | Outpatient (AMB) | payer MEDICARE, SELFPAY ==
--- NOTE | 2025-06-18 11:05 | A.OFFPC_ITS ---
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 Required: No Accompanied by: Self / Same As Patient Allergies morphine Allergy (Severe, Verified 06/18/25 11:06) Itching avocado (AVOCADO) Allergy (Mild, Verified 06/18/25 11:06) ITCHY THROAT, RASH azithromycin (AZITHROMYCIN) Allergy (Mild, Verified 06/18/25 11:06) ITCHY THROAT, RASH barium iodide (BARIUM IODIDE) Allergy (Mild, Verified 06/18/25 11:06) ITCHY THROAT, RASH barium sulfate Allergy (Mild, Verified 06/18/25 11:06) Itch bee pollen (BEE STINGS) Allergy (Mild, Verified 06/18/25 11:06) ITCHY THROAT, RASH ciprofloxacin (From CIPRO) Allergy (Mild, Verified 06/18/25 11:06) ITCHY THROAT, RASH clarithromycin (From BIAXIN) Allergy (Mild, Verified 06/18/25 11:06) ITCHY THROAT, RASH diatrizoate meglumine (From GASTROGRAFIN) Allergy (Mild, Verified 06/18/25 11:06) ITCHY THROAT, RASH diatrizoate sodium (From GASTROGRAFIN) Allergy (Mild, Verified 06/18/25 11:06) ITCHY THROAT, RASH diclofenac (From VOLTAREN) Allergy (Mild, Verified 06/18/25 11:06) ITCHY THROAT, RASH erythromycin base (ERYTHROMYCIN BASE) Allergy (Mild, Verified 06/18/25 11:06) ITCHY THROAT, RASH gentamicin (GENTAMICIN) Allergy (Mild, Verified 06/18/25 11:06) ITCHY THROAT, RASH Iodinated Contrast Media (IVP DYE) Allergy (Mild, Verified 06/18/25 11:06) ITCHY THROAT, RASH levofloxacin (From LEVAQUIN) Allergy (Mild, Verified 06/18/25 11:06) ITCHY THROAT, RASH metronidazole (From FLAGYL) Allergy (Mild, Verified 06/18/25 11:06) ITCHY THROAT, RASH moxifloxacin (From AVELOX) Allergy (Mild, Verified 06/18/25 11:06) ITCHY THROAT, RASH Penicillins (PENICILLINS) Allergy (Mild, Verified 06/18/25 11:06) ITCHY THROAT, RASH shrimp (SHRIMP) Allergy (Mild, Verified 06/18/25 11:06) ITCHY THROAT, RASH Sulfa (Sulfonamide Antibiotics) (SULFA (SULFONAMIDE ANTIBIOTICS)) Allergy (Mild, Verified 06/18/25 11:06) ITCHY THROAT, RASH vancomycin (VANCOMYCIN) Allergy (Mild, Verified 06/18/25 11:06) ITCHY THROAT, RASH clindamycin Adverse Reaction (Intermediate, Verified 06/18/25 11:06) Unknown empagliflozin (From Jardiance) Adverse Reaction (Intermediate, Verified 06/18/25 11:29) hypoglycemic episodes, vaginal itching spironolactone Adverse Reaction (Intermediate, Verified 06/18/25 11:06) diarrhea Medication List - Last Reconciled 06/18/25 by Caitlyn Bowie MD Advair HFA 230-21 mcg/actuation (fluticasone propion-salmeterol) 2 puffs inhalation BID NS albuterol sulfate 90 mcg/actuation 2 inhalations inhalation Q6H PRN 90 days albuterol sulfate 2.5 mg inhalation BID PRN ascorbic acid (vitamin C) 250 mg PO DAILY cetirizine (Zyrtec) 10 mg PO DAILY CPAP (CPAP Machine/Device) As directed cyanocobalamin (vitamin B-12) (Vitamin B-12) 50 mcg PO DAILY diazepam 2.5 mg (1/2 x 5 mg) PO BID PRN 15 days docusate sodium 100 mg PO BID epinephrine 0.3 mg IM USEASDIRECTD PRN ferrous gluconate 324 mg PO DAILY fluticasone propionate 50 mcg/actuation 2 sprays intranasal DAILY PRN folic acid 1 mg PO DAILY furosemide 80 mg (2 x 40 mg) PO BID levothyroxine (Synthroid) 25 mcg PO MOTUWETHFR@0600 levothyroxine (Synthroid) 50 mcg PO SUSA@0600 meclizine 25 mg PO Q8H PRN 10 days metoprolol succinate ER (Toprol XL) 50 mg PO BID montelukast 10 mg PO DAILY nebulizers As directed Oxygen Home Use As directed potassium chloride 20 mEq PO DAILY 90 days prednisone 2.5 mg PO Q OTHER DAY riboflavin (vitamin B2) 25 mg PO DAILY rosuvastatin 10 mg PO MOWEFR@2100 simethicone (Gas Relief (simethicone)) 80 mg PO QIDWMHS PRN trazodone 100 mg (2 x 50 mg) PO BEDTIME warfarin (Jantoven) 1mg tablet, take 1 - 3 tabs daily depending on clinic instructions and INR checks zinc 50 mg PO DAILY Tobacco use date assessed: 05/07/25 Fall risk assessment: No Falls in past year Last assessed Fall Risk: 06/18/25 Dental Screening Dental Screen Date: 05/07/25 HPI HPI Comments History of Present Illness Details The patient is an 80 year old female presenting for evaluation of worsening cough symptoms. Productive cough: The patient reports a cough productive of thick, white mucus that has been present for over a week, possibly two weeks. The sputum production is most sig nificant in the morning, and she denies any associated fevers or chills. She has a history of pneumonia about three - four weeks ago, for which a CT scan was done to rule out a pulmonary embolism. She has a known allergy to cefpodoxime and is limited to doxycycline for antibiotic treatment. Chronic Lower Extremity Edema: The patient reports chronic and persistent swelling in one leg and foot that occurs daily and has recently become more intense. She is currently taking furosemide 80 mg twice daily for this condition. She has a history of congestive heart failure and is established with cardiology. Abnormal Odor: The patient reports a distressing and persistent anal and vaginal odor that develops by the afternoon despite showering in the morning. She saw a colorectal specialist last year for the anal odor without resolution. She has an upcoming appointment with a urogynecologist to address this issue. This symptom was also associated with a rash when she was taking Jardiance. Irritable Bowel Syndrome with Constipation (IBS-C): The patient endorses issues with constipation, which is exacerbated by anxiety. She reports bright red blood on the toilet paper when wiping, which is att ributed to straining. She currently takes two tablets of docusate in the morning and two at night, totaling 400 mg daily, but still experiences constipation. Her diet is low in fiber as she avoids greens due to her anticoagulation therapy. She notes iron supplements can worsen her constipation. Gastroparesis and Reflux: A gastric emptying study has been ordered by internal auditor, which the patient has postponed. She was advised to use bed risers to elevate her head while sleeping to manage acid reflux, but found 6-inch risers too high and now uses 3- inch risers and props herself with pillows. Adverse Drug Reactions: The patient reports multiple medication sensitivities. She experienced a racing heart with a Preparation H product containing epinephrine. She recently discontinued Jardiance 10 mg due to symptoms of hypoglycemia, a rash, and dehydration with peeling lips, despite it helping with chest pain and pressure. The patient had a significant reaction to cefpodoxime with hand swelling, leading to an ER visit several months ago. She also reports developing severe chest pain after starting a medication prescribed by a congestive heart failure specialist, which resolved upon discontinuation. [facility] Medical History (Updated 06/18/25 @ 17:06 by Caitlyn Bowie MD) Swelling of both lower extremities Dysphagia Anti-phospholipid antibody syndrome Chest pain Chest pain Ankle pain Chronic hypercapnic respiratory failure KANDY treated with BiPAP COPD (chronic obstructive pulmonary disease) Open wound Warfarin anticoagulation Complex sleep apnea syndrome Leg pain Anemia Tachycardia DVT (deep venous thrombosis) Compression fracture of body of thoracic vertebra ASD (atrial septal defect) Pleuritic chest pain History of COVID-19 Chronic anticoagulation Hypothyroidism GERD (gastroesophageal reflux disease) Hyperlipidemia Hypertension Factor 5 Leiden mutation, heterozygous History of non-ST elevation myocardial infarction (NSTEMI) Hypoxia Anxiety PTSD (post-traumatic stress disorder) Hemoptysis Dyspnea Tracheobronchitis CLARA positive Diverticulitis Allergic bronchitis (HFpEF) heart failure with preserved ejection fraction Subarachnoid bleed Insomnia Hypogammaglobulinemia Chronic respiratory failure Arterial insufficiency of lower extremity Complex regional pain syndrome i of right lower limb Post herpetic neuralgia Pulmonary hypertension Pericardial effusion Pulmonary emboli Pleural effusion Radiation fibrosis of lung Pneumonitis Pulmonary nodules Lung cancer Surgical History History of colonoscopy History of lung surgery History of tonsillectomy History of hysterectomy S/P mitral valve clip implantation History of cardiac cath Family History Sister No problems noted. Mother Cardiovascular disease Daughter Tachycardia Other KANDY (obstructive sleep apnea) Social History Household Members: None Housing: House Do you presently have visiting nurse or other home services: No Alcohol intake: never Comment: stand by assist with ambulation Patient Tobacco Use Status: Never used Tobacco e-Cigarette/Vaping Use: Never Used Second Hand Smoke Exposure: No Advance Directives Date on File: 06/15/22 service: No Current occupational status: retired Questionnaire Thrive Questionnaire Date Thrive assessed: 04/23/25 AUDIT C Alcohol Use Questionnaire (AUDIT-C) 1. How often do you have a drink containing alcohol?: Never 3. How often do you have six or more drinks on one occasion?: Never Total Score: 0 Review of Systems Narrative Review of Systems - Constitutional: Reports fatigue. - Respiratory: Reports cough productive of thick white sputum for 1-2 weeks. - Cardiovascular: Reports chronic lower extremity edema, which has recently worsened. - Cardiovascular: Reports history of chronic chest pain. - Gastrointestinal: Reports abdominal distention , hematochezia upon wiping, constipation, and epigastric pain on deep inspiration. - Genitourinary: Reports vaginal and anal odor. - Integumentary: Reports an itchy, dry, scaly patch on her back that she has had for 20 years; also notes peeling lips from dehydration. - Musculoskeletal: Reports persistent pain over a rib/bone area consistent with costochondritis. - Psychiatric: Reports feeling very anxious about her health. Physical exam (Primary Care) Vital Signs: Last Vital Signs Temp 96.9 F 06/18/25 11:08 Pulse 80 06/18/25 11:08 Resp 16 06/18/25 11:08 BP 98/50 L 06/18/25 11:08 Pulse Ox 98 06/18/25 11:08 Oxygen Delivery Method Nasal Cannula 06/18/25 11:08 Oxygen Flow Rate 2 06/18/25 11:08 BMI result Body Mass Index 24.3 Tobacco/Smoking Status: Tobacco use Status Tobacco use date assessed 05/07/25 06/18/25 11:06 Patient Tobacco Use Status Never used Tobacco 06/18/25 11:06 e-Cigarette/Vaping Use Never Used 06/18/25 11:06 Thrive Assessment: Date of Thrive Assessment Date Thrive assessed 04/23/25 06/18/25 11:06 Narrative Physical Exam - Lungs: Minimal wheezing heard in the left lung field. - Abdomen: Soft with normal bowel sounds; mild tenderness to palpation in the epigastric region. - Chest Wall: Tenderness noted along the T6-7 intercostal space, consistent with history of costochondritis. - Skin: Examination of the back reveals an area of dryness and scaling consistent with scratching; no discoloration or raised lesions noted. - Edema: Chronic lower extremity edema 1+ Coding Level of Care Code Est Pt Level 4 (65884) Add On Problem Visit Only Diagnoses Swelling of both lower extremities M79.89 Chronic diastolic congestive heart failure I50.32 Heart failure chronicity: chronic Productive cough R05.8 Assessment & Plan Assessment & Plan (1) Swelling of both lower extremities: Code(s): M79.89 - Other specified soft tissue disorders Category: Medical (2) Diastolic CHF: Code(s): I50.30 - Unspecified diastolic (congestive) heart failure Category: Medical Qualifiers: Heart failure chronicity: chronic Qualified Code(s): I50.32 - Chronic diastolic (congestive) heart failure (3) Productive cough: Code(s): R05.8 - Other specified cough Category: Medical Plan Assessment and Plan 1. Follow-up Pneumonia/Bronchitis - The patient reports a productive cough for over a week following a recent bout of pneumonia. - The plan is to obtain a follow-up chest x-ray today to assess for resolution and check labs including a BMP and BNP to evaluate her volume status and cardiac function. 2. Abnormal Odor (Vaginal/Anal) - The patient is very distressed by this symptom. - She has an appointment with a urogynecologist tomorrow. 3. Adverse Drug Reaction to Jardiance - Her symptoms of hypoglycemia and rash are noted. - We discussed that the significant glucosuria was an expected effect of the medication but understand why she stopped it given her other symptoms and anxiety. 4. Constipation with Hematochezia - Her constipation is likely multifactorial (IBS, iron supplements, low-fiber diet). - She is on a high dose of docusate with minimal relief. - We discussed management and she will continue to monitor symptoms. 5. Potential Gastroparesis - I reinforced the rationale for the test, explaining it relates to her reflux and epigastric discomfort. 6. Congestive Heart Failure and Lower Extremity Edema - Her edema is a chronic issue. - We will monitor this. - A BNP will be checked today to assess her current cardiac status. 7. Iron Deficiency Anemia - Endorses fatigue. - We will check her iron levels with today's blood work. 8. Lab and Imaging Orders - Orders were placed for a chest x-ray, BNP, chemistry panel (electrolytes), and iron studies to be done today. Plan - Order a chest x-ray to be completed today to evaluate for resolution of pneumonia. - Order lab work to be completed today, including A1c, electrolytes, BNP, magnesium, and iron studies. - Patient will continue to monitor her chronic lower extremity edema. - Follow up in a couple of weeks as scheduled Patient Instructions - Please go to the hospital today to have a chest x-ray and blood work done. - Keep your urogynecology appointment tomorrow to discuss the odor issue you are experiencing. - Contact your small arms artillery repairer's office at [address] and ask them to send a copy of your recent visit notes to my office. Orders: Orders Complete Blood Count Auto Diff Today Caitlyn Bowie MD D64.9 - Anemia, unspecified, E87.6 - Hypokalemia, I50.32 - Chronic diastolic (congestive) heart failure IRON PROFILE Today Caitlyn Bowie MD D64.9 - Anemia, unspecified, E87.6 - Hypokalemia, I50.32 - Chronic diastolic (congestive) heart failure NT Pro B Type Natriuretic Pept Today Caitlyn Bowie MD D64.9 - Anemia, unspecified, E87.6 - Hypokalemia, I50.32 - Chronic diastolic (congestive) heart failure Comprehensive Met. Panel Today Caitlyn Bowie MD D64.9 - Anemia, unspecified, E87.6 - Hypokalemia, I50.32 - Chronic diastolic (congestive) heart failure Ferritin Today Caitlyn Bowie MD D64.9 - Anemia, unspecified, E87.6 - Hypokalemia, I50.32 - Chronic diastolic (congestive) heart failure Magnesium Today Caitlyn Bowie MD D64.9 - Anemia, unspecified, E87.6 - Hypokalemia, I50.32 - Chronic diastolic (congestive) heart failure XR chest 2V Today Caitlyn Bowie MD R05.8 - Other specified cough Medications: Changed From fluticasone propionate 50 mcg/actuation 2 sprays intranasal DAILY 90 days 3 ea 3RF To fluticasone propionate 50 mcg/actuation 2 sprays intranasal DAILY PRN Henry Kelly MD From albuterol sulfate 2.5 mg (3 mL) inhalation BID 30 days 180 mL 11RF J41.0 - Simple chronic bronchitis To albuterol sulfate 2.5 mg inhalation BID PRN J41.0 - Simple chronic bronchitis Henry Kelly MD
[2025-06-18 11:08] VITALS: BP 98/50; PULSE 80; RESP 16; TEMP 36.1; O2SAT 98; BMI 24.3
== END 2025-06-18 11:55 | disposition home or self-care (01) ==
LOC: HO.HMCHD 11:00
PROVIDERS: PCP Internal Medicine; Visit Provider Internal Medicine
DX: M79.89 Other specified soft tissue disorders (principal); I50.32 Chronic diastolic (congestive) heart failure; R05.8 Other specified cough

== ENCOUNTER 2025-06-18 10:59 | Outpatient (REF) | payer MEDICARE, SELFPAY ==
--- NOTE | ~2025-06-18 | XR_ITS ---
EXAMINATION: XR CHEST CLINICAL INFORMATION: R05.8 - Other specified cough COMPARISON: May 18, 2025. TECHNIQUE: PA and lateral views. FINDINGS: Hyperinflated lungs. Pulmonary reticular nodular pattern. Shifted cardiomediastinal silhouette to the left hemithorax with volume loss left lung. Haziness in the mid to lower left hemithorax with associated linear opacities. No gross pneumothorax. Calcified plaque aorta. Vascular clips overlapping the lower cardiomediastinal silhouette. Osteopenia versus osteoporosis. XR/XR chest 2V IMPRESSION: Chronic interstitial lung disease with persistent probably loculated left-sided pleural effusion and pulse surgical changes left lung. Superimposed airspace disease versus malignancy cannot be excluded. Electronically signed by: Kt Millan MD 06/18/2025 12:31 PM EST GENIE
[2025-06-18 12:40] LABS: MANUAL DIFF FLAG NO
[2025-06-18 13:34] LABS: Hematocrit 36.7 % (37.0-47.0); Hemoglobin 11.8 g/dl (12.0-16.0); Imm Gran Abs Auto 0.22 X10*3/uL (0.00-0.03); Imm Gran Pct Auto 1.9 % (0.0-0.4); Lymphocytes Absolute Auto 0.9 X10*3/uL (1.2-4.9); Mean Corpuscular HGB Conc 32.2 g/dl (31.0-35.0); Mean Corpuscular Hemoglobin 33.0 pg (27.0-33.0); Mean Corpuscular Volume 102.5 fL (80.0-98.0); NRBC Abs Auto 0.000 X10*3/uL (0.0-0.012); NRBC Pct Auto 0.0 /100WBC (0.0-0.2); Platelet Count 226 X10*3/uL (160-400); Red Blood Count 3.58 X10*6/uL (4.20-5.50); White Blood Count 11.8 X10*3/uL (4.8-10.8)
[2025-06-18 14:50] LABS: Alanine Aminotransferase 25 U/L (0-31); Albumin Level 3.9 g/dL (3.5-5.0); Alkaline Phosphatase 68 U/L (39-117); Anion Gap 8 (12-20); Aspartate Amino Transferase 30 U/L (5-31); Blood Urea Nitrogen 25 mg/dL (9-16); Calcium 10.1 mg/dL (8.4-10.2); Carbon Dioxide 39 mmol/L (22-29); Chloride 96 mmol/L (96-108); Estimated Glomerular Filt Rate > 60; Iron 83 mcg/dL (30-160); Magnesium 2.8 mg/dL (1.6-2.6); Percent Iron Saturation 33 % (15-50); Potassium 3.2 mmol/L (3.3-5.1); Sodium 140 mmol/L (135-145); Total Iron Binding Capacity 252 mcg/dL (228-428); Total Protein 6.8 g/dL (6.5-8.0); Unsaturated Iron Binding 169 ug/dL
[2025-06-18 14:53] LABS: NT Pro B Type Natriuretic Pept 872.4 pg/mL (<300)
[2025-06-18 15:11] LABS: Ferritin 89 ng/mL (10-250)
== END 2025-06-18 11:00 | disposition home or self-care (01) ==
LOC: HO.XRAY 10:59
PROVIDERS: PCP Internal Medicine; Visit Provider Internal Medicine
DX: R05.8 Other specified cough (principal); R81 Glycosuria; E87.6 Hypokalemia; D64.9 Anemia, unspecified; I50.32 Chronic diastolic (congestive) heart failure; M79.89 Other specified soft tissue disorders
CPT/HCPCS: 36415; 71046; 80053; 82728; 83036; 83540; 83735; 83880; 85025; 99212

== ENCOUNTER → 2025-06-18 12:11 | Outpatient (BNV) | payer MEDICARE, SELFPAY | PROVIDERS: PCP Internal Medicine; Visit Provider Radiology Diagnostic Radiology | DX: J84.9 Interstitial pulmonary disease, unspecified (principal) | CPT/HCPCS: 71046 ==

== ENCOUNTER → 2025-06-25 09:13 | Outpatient (BNVA) | payer MEDICARE, SELFPAY | PROVIDERS: PCP Internal Medicine | DX: R35.0 Frequency of micturition (principal); N39.41 Urge incontinence; Z13.9 Encounter for screening, unspecified | CPT/HCPCS: 51798; 81003; 99202 ==

== ENCOUNTER 2025-06-25 15:17 | Outpatient (AMB) | payer MEDICARE, SELFPAY ==
--- NOTE | 2025-06-25 15:23 | A.OFFVIS_ITS ---
Intake Visit Reasons: Urinary incontinence/PVR/UA(SET) Intake Note: Patient is present for URINARY INCONTINENCE/PVR/UA Urology Medication:POTASSIUM CHLORIDE,VITAMIN B2,VITAMIN B12,VITAMIN C Antibiotic Allergy: AZITHROMYCIN,CIPROFLOXACIN,ERYTHROMYCIN,GENTAMICIN,LEVOFLOXACIN,MOXIFLAXACIN,PEN ICILLINS,SULFAVANCOMYCIN,CLINDAMYCIN,EMPAGLIFLOZIN Blood Thinner:WARFARIN TODAY'S PVR:0ML'S Demolition Specialist Required: No Allergies morphine Allergy (Severe, Verified 06/25/25 20:50) Itching avocado (AVOCADO) Allergy (Mild, Verified 06/25/25 20:50) ITCHY THROAT, RASH azithromycin (AZITHROMYCIN) Allergy (Mild, Verified 06/25/25 20:50) ITCHY THROAT, RASH barium iodide (BARIUM IODIDE) Allergy (Mild, Verified 06/25/25 20:50) ITCHY THROAT, RASH barium sulfate Allergy (Mild, Verified 06/25/25 20:50) Itch bee pollen (BEE STINGS) Allergy (Mild, Verified 06/25/25 20:50) ITCHY THROAT, RASH ciprofloxacin (From CIPRO) Allergy (Mild, Verified 06/25/25 20:50) ITCHY THROAT, RASH clarithromycin (From BIAXIN) Allergy (Mild, Verified 06/25/25 20:50) ITCHY THROAT, RASH diatrizoate meglumine (From GASTROGRAFIN) Allergy (Mild, Verified 06/25/25 20:50) ITCHY THROAT, RASH diatrizoate sodium (From GASTROGRAFIN) Allergy (Mild, Verified 06/25/25 20:50) ITCHY THROAT, RASH diclofenac (From VOLTAREN) Allergy (Mild, Verified 06/25/25 20:50) ITCHY THROAT, RASH erythromycin base (ERYTHROMYCIN BASE) Allergy (Mild, Verified 06/25/25 20:50) ITCHY THROAT, RASH gentamicin (GENTAMICIN) Allergy (Mild, Verified 06/25/25 20:50) ITCHY THROAT, RASH Iodinated Contrast Media (IVP DYE) Allergy (Mild, Verified 06/25/25 20:50) ITCHY THROAT, RASH levofloxacin (From LEVAQUIN) Allergy (Mild, Verified 06/25/25 20:50) ITCHY THROAT, RASH metronidazole (From FLAGYL) Allergy (Mild, Verified 06/25/25 20:50) ITCHY THROAT, RASH moxifloxacin (From AVELOX) Allergy (Mild, Verified 06/25/25 20:50) ITCHY THROAT, RASH Penicillins (PENICILLINS) Allergy (Mild, Verified 06/25/25 20:50) ITCHY THROAT, RASH shrimp (SHRIMP) Allergy (Mild, Verified 06/25/25 20:50) ITCHY THROAT, RASH Sulfa (Sulfonamide Antibiotics) (SULFA (SULFONAMIDE ANTIBIOTICS)) Allergy (Mild, Verified 06/25/25 20:50) ITCHY THROAT, RASH vancomycin (VANCOMYCIN) Allergy (Mild, Verified 06/25/25 20:50) ITCHY THROAT, RASH clindamycin Adverse Reaction (Intermediate, Verified 06/25/25 20:50) Unknown empagliflozin (From Jardiance) Adverse Reaction (Intermediate, Verified 06/25/25 20:50) hypoglycemic episodes, vaginal itching spironolactone Adverse Reaction (Intermediate, Verified 06/25/25 20:50) diarrhea Medication List - Last Reconciled 06/25/25 by CHRISTOPHER Howell Advair HFA 230-21 mcg/actuation (fluticasone propion-salmeterol) 2 puffs inhalation BID NS albuterol sulfate 90 mcg/actuation 2 inhalations inhalation Q6H PRN 90 days albuterol sulfate 2.5 mg inhalation BID PRN ascorbic acid (vitamin C) 250 mg PO DAILY cetirizine (Zyrtec) 10 mg PO DAILY CPAP (CPAP Machine/Device) As directed cyanocobalamin (vitamin B-12) (Vitamin B-12) 50 mcg PO DAILY diazepam 2.5 mg (1/2 x 5 mg) PO BID PRN 15 days docusate sodium 100 mg PO BID doxycycline monohydrate 100 mg PO BID 7 days epinephrine 0.3 mg IM USEASDIRECTD PRN ferrous gluconate 324 mg PO DAILY fluticasone propionate 50 mcg/actuation 2 sprays intranasal DAILY PRN folic acid 1 mg PO DAILY furosemide 80 mg (2 x 40 mg) PO BID levocetirizine 5 mg PO DAILY 90 days levothyroxine (Synthroid) 25 mcg PO MOTUWETHFR@0600 levothyroxine (Synthroid) 50 mcg PO SUSA@0600 meclizine 25 mg PO Q8H PRN 10 days metoprolol succinate ER (Toprol XL) 50 mg PO BID montelukast 10 mg PO DAILY nebulizers As directed Oxygen Home Use As directed potassium chloride 20 mEq PO DAILY 90 days prednisone 2.5 mg PO Q OTHER DAY riboflavin (vitamin B2) 25 mg PO DAILY rosuvastatin 10 mg PO MOWEFR@2100 simethicone (Gas Relief (simethicone)) 80 mg PO QIDWMHS PRN trazodone 100 mg (2 x 50 mg) PO BEDTIME warfarin (Jantoven) 1mg tablet, take 1 - 3 tabs daily depending on clinic instructions and INR checks zinc 50 mg PO DAILY HPI Comments Details: Jovana is a very pleasant 80-year-old female patient of Dr. Bowie. She has a past medical history of dysphagia, obstructive sleep apnea treated with BiPAP, COPD, chronic hypercapnic respiratory failure, anemia, complex sleep apnea syndrome, DVT, compression fracture of thoracic vertebrae, atrial septal defect, hypothyroidism, GERD, hyperlipidemia, hypertension, factor 5 Leiden mutation, non in semi myocardial infarction 04/29 and 06/30, PTSD, anxiety, diverticulitis, heart failure with preserved ejection fracture, subarachnoid bleed, insomnia, atrial insufficiency of lower extremity, complex regional pain syndrome, post herpetic neuralgia, pulmonary hypertension (severe based on recent echo), pleural effusions, pericardial effusion, pulmonary emboli, pneumonitis, and lung cancer. She presents to the office today as a new patient for urinary urgency and urinary frequency. She reports typically she experiences these lower urinary tract symptoms after taking her Lasix 80 mg b.i.d. as prescribed. She reports her main concern is her foul-smelling vaginal odor. She reports she was going to cancel today's appointment as she has recently followed up with a urogynecology and plans to undergo pelvic floor therapy. She reports having had physical assessment and no foul smell was noted to her vaginal area. She also reports noting anal leakage. We did discussed potential causes of lower urinary tract symptoms patient experiences status post administration of her Lasix. We did discussed further treatment options and risks and benefits of these treatment options. In office urinalysis results reviewed with the patient today. PVR 0 mL. All questions were answered. She denies hematuria, dysuria, foul smelling urine, changes to urinary stream, flank pain, fever, and or chills. She otherwise offers no other issues or concerns at this time [facility] Medical History Swelling of both lower extremities Dysphagia Anti-phospholipid antibody syndrome Chest pain Chest pain Ankle pain Chronic hypercapnic respiratory failure KANDY treated with BiPAP COPD (chronic obstructive pulmonary disease) Open wound Warfarin anticoagulation Complex sleep apnea syndrome Leg pain Anemia Tachycardia DVT (deep venous thrombosis) Compression fracture of body of thoracic vertebra ASD (atrial septal defect) Pleuritic chest pain History of COVID-19 Chronic anticoagulation Hypothyroidism GERD (gastroesophageal reflux disease) Hyperlipidemia Hypertension Factor 5 Leiden mutation, heterozygous History of non-ST elevation myocardial infarction (NSTEMI) Hypoxia Anxiety PTSD (post-traumatic stress disorder) Hemoptysis Dyspnea Tracheobronchitis CLARA positive Diverticulitis Allergic bronchitis (HFpEF) heart failure with preserved ejection fraction Subarachnoid bleed Insomnia Hypogammaglobulinemia Chronic respiratory failure Arterial insufficiency of lower extremity Complex regional pain syndrome i of right lower limb Post herpetic neuralgia Pulmonary hypertension Pericardial effusion Pulmonary emboli Pleural effusion Radiation fibrosis of lung Pneumonitis Pulmonary nodules Lung cancer Surgical History History of colonoscopy History of lung surgery History of tonsillectomy History of hysterectomy S/P mitral valve clip implantation History of cardiac cath Family History Sister No problems noted. Mother Cardiovascular disease Daughter Tachycardia Other KANDY (obstructive sleep apnea) Social History Household Members: None Housing: House Do you presently have visiting nurse or other home services: No Alcohol intake: never Comment: stand by assist with ambulation Patient Tobacco Use Status: Never used Tobacco e-Cigarette/Vaping Use: Never Used Second Hand Smoke Exposure: No Advance Directives Date on File: 06/15/22 service: No Current occupational status: retired Review of Systems Const All systems reviewed & are unremarkable except as noted in HPI and below Physical Exam Const General: cooperative, comfortable, no acute distress, well developed, alert and awake Orientation/consciousness: patient oriented x3 HEENT Head: Yes normal to inspection, Yes normocephalic and Yes atraumatic Ears: hearing grossly normal bilaterally Eyes General: appearance normal, both eyes and all related structures Neck Neck: Yes normal visual inspection and Yes trachea midline Chest Chest palpation & inspection: normal inspection of the chest Resp Other: Patient with portable O2 tank however was not wearing oxygen throughout today's visit Effort & Inspection: normal respiratory effort and able to speak in complete sentences Cardio Rate: regular rate GI Inspection: Yes normal to inspection General: Yes no CVA tenderness Back/Spine/Pelvis Back: no CVA tenderness Skin General skin exam: no rashes or lesions noted Neuro General: patient oriented x3 Extrem General: Yes normal to inspection Psych Appearance: grossly normal and well kempt Mental Status: mental status grossly normal Speech and movement: Normal speech and movement present and Clear speech present Affect: normal affect Attitude: cooperative Thought process: Normal thought process present Thought content: Normal thought content present Insight: Fair insight present (Psych) Judgement: Fair judgement present (Psych) Office Procedures Post Void Residual Post Residual Void Post Void Residual (PVR): 0 [id number] Void Residual by ultrasound Results AMB Urinalysis, Automated UA Leukoctes 0 Jered/uL Last Edit by MALGORZATA Nathan on 06/25/25 15:41 UA Nitrite Negative Last Edit by MALGORZATA Nathan on 06/25/25 15:41 UA Urobilinogen 0.2 mg/dL Last Edit by MALGORZATA Nathan on 06/25/25 15:4 1 UA Protein 0 mg/dL Last Edit by MALGORZATA Nathan on 06/25/25 15:41 UA pH 6.0 Last Edit by MALGORZATA Nathan on 06/25/25 15:41 UA Blood 0 Pillo/uL Last Edit by MALGORZATA Nathan on 06/25/25 15:41 UA Specific [place] 1.015 Last Edit by MALGORZATA Nathan on 06/25/25 15: 41 UA Ketone Negative Last Edit by MALGORZATA Nathan on 06/25/25 15:41 UA Bilirubin 0 mg/dL Last Edit by MALGORZATA Nathan on 06/25/25 15:41 UA Glucose 0 mg/dL Last Edit by MALGORZATA Nathan on 06/25/25 15:41 Results Reviewed Results Reviewed: Laboratory Last Values Urine pH (Auto) 6.0 06/25/25 15:33 Specific [place] (Auto) 1.015 06/25/25 15:33 Urine Protein (Auto) 0 mg/dL 06/25/25 15:33 Glucose (UA)(Auto) 0 mg/dL 06/25/25 15:33 Urine Ketones (Auto) Negative 06/25/25 15:33 Urine Blood (Auto) 0 Pillo/uL 06/25/25 15:33 Urine Nitrite (Auto) Negative 06/25/25 15:33 Urine Bilirubin (Auto) 0 mg/dL 06/25/25 15:33 Urine Urobilinogen (Auto) 0.2 mg/dL 06/25/25 15:33 Leukocyte Esterase (Auto) 0 Jered/uL 06/25/25 15:33 Assessment & Plan Assessment & Plan (1) Urinary frequency with urgency: Code(s): R35.0 - Frequency of micturition; R39.15 - Urgency of urination Category: Medical (2) Urinary incontinence, urge: Code(s): N39.41 - Urge incontinence Category: Medical Plan In office urinalysis results with the patient today; as noted above. PVR 0 mL. We did discuss further treatment options of lower urinary tract symptoms as well as risks and benefits of these treatment options. She will continue to follow-up with urogynecology at this time. All questions were answered. Follow-up PRN; or sooner with any issues, concerns, and or questions. Orders: Orders AMB Urinalysis Automated Today Z13.9 - Encounter for screening, unspecified Coding Level of Care Code New Pt Level 3 (61929) Diagnoses Urinary frequency with urgency R35.0; R39.15 Urinary incontinence, urge N39.41 CPT Codes Post Residual Void - PVR CPT Code: 81375-Pith Void Residual by ultrasound ([id number])
--- OUTSIDE RECORDS SUMMARY | 2025-06-25 20:21 | XMS_ITS | Encounter Summary ---
Author Organization [facility] Address [address] [place] [address] Care Team Providers Care Iuss Master Analyst Name Role Phone Pcp, No Primary Care Provider Brennan Mario MD Primary Care Provider [phone] Caitlyn Bowie MD Primary Care Provider [phone] Encounter Details Date Type Department Care Team (Late st Contact Info) Description 01/04/2022 Scanned Document [facility] Neurology Ophthalmology [address] [address] Yary Whitten DO [address] [place] [address] Social History Tobacco Use Types Packs/Day [...] on filedocumented in this encounter Care Teams Iuss Master Analyst Relationship Specialty Start Date End Date Pcp, No PCP - General General Medicine 10/04/21 07/18/22 Brennan Burnett MD [address] [place] [address] PCP - General 07/19/22 03/19/23 Caitlyn Bowie MD [address] [place] [address] PCP - General Internal Medicine 03/20/23 documented as of this encounter
--- OUTSIDE RECORDS SUMMARY | 2025-06-25 20:21 | XMS_ITS | Encounter Summary ---
Author Organization [facility] Address [address] [place] [address] Care Team Providers Care Compensation Vice President Name Role Phone Caitlyn Bowie MD Primary Care Provider [phone] Encounter Details Date Type Department Care Team (Late st Contact Info) Description 03/20/2023 Scanned Document [facility] Radiology [address] [place] [address] Caitlyn Bowie MD [address] [place] [address] Social History Tobacco Use Types Packs/Day Years [...] on filedocumented in this encounter Care Teams Compensation Vice President Relationship Specialty Start Date End Date Caitlyn Bowie MD [address] [place] [address] PCP - General Internal Medicine 03/20/23 documented as of this encounter
--- OUTSIDE RECORDS SUMMARY | 2025-06-25 20:21 | XMS_ITS | Encounter Summary ---
Author Organization [facility] Address [address] [place] [address] Care Team Providers Care Technical Assistance Consultant Name Role Phone Caitlyn Bowie MD Primary Care Provider [phone] Encounter Details Date Type Department Care Team (Late st Contact Info) Description 03/14/2025 Scanned Document [facility] Neurology Ophthalmology [address] [place] [address] Shirley Chaidez PA-C [address] [address] Social History Tobacco Use Types Packs/Day Years [...] filedocumented in this encounter Care Teams Technical Assistance Consultant Relationship Specialty Start Date End Date Caitlyn Bowie MD [address] [place] [address] PCP - General Internal Medicine 03/20/23 documented as of this encounter
--- OUTSIDE RECORDS SUMMARY | 2025-06-25 20:21 | XMS_ITS | Clinical Summary ---
Author Organization [facility] Address [address] [place] [address] Care Team Providers Care Mail Agent Name Role Phone Caitlyn Bowie Primary Care Provider [phone] Allergies Active Allergy Reactions Criticality Noted Date [...] Throat tightness Throat tightness Throat tightness Ipratropium [place] Unknown Medium 12/18/2021 Isosorbide Mononitrate 11/23/2020 Other [...] topic Insurance MEDICARE PART A & B [facility] Care Teams Mail Agent Relationship Specialty Start Date End Date Caitlyn Bowie [address] [place] [address] PCP - General Internal Medicine 07/18/22
--- OUTSIDE RECORDS SUMMARY | 2025-06-25 20:21 | XMS_ITS | Clinical Summary ---
Author Organization [facility] Address [address] [place] [address] Care Team Providers Care Education General Manager Name Role Phone Caitlyn Bowie MD Primary Care Provider [phone] Allergies Active Allergy Reactions Criticality Noted Date [...] Breath High 05/09/2008 Bronchospasm or Wheezing Ipratropium [place] Unknown/Patient and Family Unable to Define Medium [...] 1 capsule by mouth daily. Active B Uvafxkl-A-Qdioo Acid (STRESS 500 B-COMPLEX PO) Take 1 [...] & B MEDICARE PART A & B [facility] Care Teams Education General Manager Relationship Specialty Start Date End Date Caitlyn Bowie MD [address] [place] [address] PCP - General Internal Medicine 03/20/23
--- OUTSIDE RECORDS SUMMARY | 2025-06-25 20:21 | XMS_ITS | Clinical Summary ---
Author Organization [facility] Prior to 12/07/[address] [place] [address] Care Team Providers Care Casting Room Operator Name Role Phone Brennan Burnett MD Primary Care Provider [phone] Allergies Active Allergy Reactions Criticality Noted Date [...] age to complete this topic Care Teams Casting Room Operator Relationship Specialty Start Date End Date Brennan Burnett MD [address] [place] [address] PCP - General Internal Medicine 07/06/20
--- OUTSIDE RECORDS SUMMARY | 2025-06-25 20:21 | XMS_ITS | Encounter Summary ---
Author Organization [facility] Address [address] [place] [address] Care Team Providers Care Data Center Engineer Name Role Phone Pcp, No Primary Care Provider Brennan Mario MD Primary Care Provider [phone] Caitlyn Bowie MD Primary Care Provider [phone] Encounter Details Date Type Department Care Team (Late st Contact Info) Description 01/04/2022 Scanned Document [facility] Neurology Ophthalmology [address] [address] Yary Whitten DO [address] [place] [address] Social History Tobacco Use Types Packs/Day [...] filedocumented in this encounter Care Teams Data Center Engineer Relationship Specialty Start Date End Date Pcp, No PCP - General General Medicine 10/04/21 07/18/22 Brennan Burnett MD [address] [place] [address] PCP - General 07/19/22 03/19/23 Caitlyn Bowie MD [address] [place] [address] PCP - General Internal Medicine 03/20/23 documented as of this encounter
== END 2025-06-25 16:03 | disposition home or self-care (01) ==
LOC: HO.HUSH 15:17
PROVIDERS: PCP Internal Medicine; Visit Provider Nurse Practitioner Family
DX: R35.0 Frequency of micturition (principal); R39.15 Urgency of urination; N39.41 Urge incontinence; Z13.9 Encounter for screening, unspecified
CPT/HCPCS: 99203

== ENCOUNTER 2025-06-26 12:30 | Outpatient (REF) | payer MEDICARE, SELFPAY ==
--- OUTSIDE RECORDS SUMMARY | 2025-06-16 03:40 | XMS_ITS ---
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 Name Role Phone EVELIN RAMSAY Primary Care Provider Yenny Hou Unavailable [phone] Allergies Allergen (clinical drug ingredient) Drug/Non Drug [...] Rash Drug Allergy Active REASON FOR VISIT DISCHARGE & BUMBS AROUND ANUS Social History Tobacco Use: Social History Observation [...] (Standard) Question Answer Notes Tobacco use: Nonsmoker Encounters Encounter Location Date Provider Diagnosis [facility] [employer] [facility] [address] [place] [address] 06/16/2025 Yenny Elizalde Plan Of Treatment No Information Progress Notes * TONIE WATSONOB:1945 (80 yo F)Acc No.[id number]:06/16/2025 PROGRESS NOTES Patient: CINDA ALVAREZ Appointment Provider: Donna Elizalde M.D. :1945 A ge:80 Y S ex:Female Date:06/16/2025 Address:[address] [place] [address] Pcp:EVELIN RAMSAY Subjective: * Chief Complaints: * 1 . DISCHARGE & BUMBS AROUND ANUS. * Medical History: O ther asthma, Cardiac murmur, unspecified, Epilepsy, unspecified, intractable, without status epilepticus, Right Breast Fibroid, Lung Cancer 2008, Postmenopausal atrophic vaginitis, Age-related osteoporosis without current pathological fracture, Functional urinary incontinence, Cutaneous abscess of buttock, Hereditary deficiency of other clotting factors, Cutaneous abscess of buttock, Sebaceous cyst, Pelvic Pain, Urgency of urination, Frequency of micturition, Essential (primary) hypertension, Chronic systolic (congestive) heart failure, Chronic obstructive pulmonary disease, unspecified, Abscess of vulva, Mastodynia. * Concrete Block Layer History: G ravida/ Para 2 /2. S exual activity n ot currently sexually active. L ast Pap Smear: 2 002. M ammogram: < 50% density, 08/18/23 < 50% density, 07/08/22 < 50% density, 05/25/20 < 50% density, 05/23/19 < 50% density, 05/11/18 < 50% density, 04/2017. L MP and menses H yst at 31. H istory of STD's: H SV2 07/23/19. C olonoscopy 2 013. B one Density: 1 , 05/25/20, 05/10/17. * OB History: T otal pregnancies 2 . T otal living children 2 . N VD 2 . * Social History: T obacco Use: T obacco Control (Standard) T obacco use: N onsmoker S exual History: S exual History H ad sex in the past 12 months (vaginal, oral, or anal)? N o Details of Sexual History A re you sexually active? N o D rugs/Alcohol: D rugs H ave you used drugs other than those for medical reasons in the past 12 months? N o M iscellaneous: C hildren: yes, 2. Exercise: no. Home smoke detector use: yes. Living with: alone. Marital status: . Natural support system: yes. Occupation: Retired. Sexually active: no. D rug/Alcohol: A JANETT-C (Standard) D id you have a drink containing alcohol in the past year? N o P oints 0 I nterpretation N egative * Allergies: I CAKE FROSTER DYE: Shock - Allergy, MUSCLE RELAXERS: Shock - Allergy, BIAXIN: Shock - Allergy, ERYTHROMYCIN: Shock - Allergy, GENTAMICIN SULFATE: Shock - Allergy, LEVAQUIN: MALAISE - Allergy, VANCOMYCIN HCL: Shock - Allergy, VOLTAREN: Shock - Allergy, ZITHROMAX: Shock - Allergy, Gastrografin: Allergy, Avelox: Shock - Allergy, Cipro: Allergy, Flagyl: Allergy, Sulfa Antibiotics: Skin Rash - Allergy, Penicillin: Shock - Allergy, Avanafil: Shock - Allergy, Novocain: Increased Heart Rate - Allergy. Objective: * Vitals: Assessment: Plan: * Treatment: * Images: Billing Information: * Visit Code: * Procedure Codes: * Electronic signature of Brigido Elizalde MD on 06/26/2025 at 04:22 PM EST Sign off status: Pending * Appointment Provider: Donna Elizalde M.D. Date: 08/17/2024 Generated for Arely paige/Sebastian/Brandonsmitting on: 08/27/2024 04:22 PM EST
[2025-06-26 14:26] LABS: Anion Gap 11 (12-20); Blood Urea Nitrogen 25 mg/dL (9-16); Calcium 10.4 mg/dL (8.4-10.2); Carbon Dioxide 32 mmol/L (22-29); Chloride 98 mmol/L (96-108); Estimated Glomerular Filt Rate 60; Potassium 3.4 mmol/L (3.3-5.1); Sodium 138 mmol/L (135-145)
--- OUTSIDE RECORDS SUMMARY | 2025-06-26 16:21 | XMS_ITS | Encounter Summary ---
Author Organization [facility] Address [address] [place] [address] Phone Care Team Providers Care Asbestos Pipe Supervisor Name Role Phone Caitlyn Bowie MD Primary Care Provider [phone] Encounter Details Date Type Department Care Team (Late Contact Info) Description 12/10/2024 Documentation Only [facility] [address] [place] [address] Marina Abdi [address] [place] [address] Social History Tobacco Use Types [...] Care Team (Late st Contact Info) Description 07/18/2025 3:15 PM EST Office Visit [facility] [address] [place] [address] Rubén Ashraf MD [address] [place] [address] [place] [address] documented as of this encounter Visit Diagnoses Not on filedocumented in this encounter Care Teams Asbestos Pipe Supervisor Relationship Specialty Start Date End Date Caitlyn Bowie MD [address] [place], [place] PCP - General Internal Medicine 09/24/24 documented as of this encounter
--- OUTSIDE RECORDS SUMMARY | 2025-06-26 16:21 | XMS_ITS | Encounter Summary ---
Author Organization [facility] Address [address] [place] [address] Phone Care Team Providers Care Metal Furniture Repairer Name Role Phone Caitlyn Bowie MD Primary Care Provider [phone] Encounter Details Date Type Department Care Team (Late Contact Info) Description 12/12/2024 Documentation Only [facility] [address] [place] [address] Marina Abdi [address] [place] [address] Social History Tobacco Use Types [...] [facility] [address] [place] [address] Rubén Ashraf MD [address] [place] [address] [place] [address] documented as of this encounter Visit Diagnoses Not on filedocumented in this encounter Care Teams Metal Furniture Repairer Relationship Specialty Start Date End Date Caitlyn Bowie MD [address] [place], [place] PCP - General Internal Medicine 09/24/24 documented as of this encounter
--- OUTSIDE RECORDS SUMMARY | 2025-06-26 16:21 | XMS_ITS | Encounter Summary ---
Author Organization [facility] Address [address] [place] [address] Phone Care Team Providers Care Director Of Social Media Marketing Name Role Phone Caitlyn Bowie MD Primary Care Provider [phone] Encounter Details Date Type Department Care Team (Late st Contact Info) Description 10/01/2024 Documentation Only [facility] [address] [place] [address] Ron Taylor DC [address] [place] [address] Social History Tobacco Use Types [...] Visit [facility] [address] [place] [address] Rubén Ashraf MD [address] [place] [address] [place] [address] documented as of this encounter Visit Diagnoses Not on filedocumented in this encounter Care Teams Director Of Social Media Marketing Relationship Specialty Start Date End Date Caitlyn Bowie MD [address] [place], [place] PCP - General Internal Medicine 09/24/24 documented as of this encounter
--- OUTSIDE RECORDS SUMMARY | 2025-06-26 16:21 | XMS_ITS | Encounter Summary ---
Author Organization [facility] Address [address] [place] [address] Phone Care Team Providers Care Poker Manager Name Role Phone Caitlyn Bowie MD Primary Care Provider [phone] Encounter Details Date Type Department Care Team (Late Contact Info) Description 12/10/2024 Documentation Only [facility] [address] [place] [address] Marina Abdi [address] [place] [address] Social History Tobacco Use Types [...] [facility] [address] [place] [address] Rubén Ashraf MD [address] [place] [address] [place] [address] documented as of this encounter Visit Diagnoses Not on filedocumented in this encounter Care Teams Poker Manager Relationship Specialty Start Date End Date Caitlyn Bowie MD [address] [place], [place] PCP - General Internal Medicine 09/24/24 documented as of this encounter
--- OUTSIDE RECORDS SUMMARY | 2025-06-26 16:21 | XMS_ITS | Encounter Summary ---
Author Organization [facility] Address [address] [place] [address] Phone Care Team Providers Care Floriculture Teacher Name Role Phone Caitlyn Bowie MD Primary Care Provider [phone] Encounter Details Date Type Department Care Team (Late st Contact Info) Description 10/10/2024 Documentation Only [facility] [address] [place] [address] Ron Taylor SC [address] [place] [address] Social History Tobacco Use Types [...] [facility] [address] [place] [address] Rubén Ashraf MD [address] [place] [address] [place] [address] documented as of this encounter Visit Diagnoses Not on filedocumented in this encounter Care Teams Floriculture Teacher Relationship Specialty Start Date End Date Caitlyn Bowie MD [address] [place], [place] PCP - General Internal Medicine 09/24/24 documented as of this encounter
--- OUTSIDE RECORDS SUMMARY | 2025-06-26 16:21 | XMS_ITS | Clinical Summary ---
Author Organization [facility] Address [address] [place] [address] Care Team Providers Care Batch Maker Name Role Phone Caitlyn Bowie Primary Care Provider [phone] Allergies Active Allergy Reactions Criticality Noted Date [...] Throat tightness Throat tightness Throat tightness Ipratropium [place] Unknown Medium 12/18/2021 Isosorbide Mononitrate 11/23/2020 Other [...] topic Insurance MEDICARE PART A & B [facility] Care Teams Batch Maker Relationship Specialty Start Date End Date Caitlyn Bowie [address] [place] [address] PCP - General Internal Medicine 07/18/22
--- OUTSIDE RECORDS SUMMARY | 2025-06-26 16:21 | XMS_ITS | Clinical Summary ---
Author Organization [facility] Address [address] [place] [address] Care Team Providers Care Garden Worker Name Role Phone Caitlyn Bowie MD Primary Care Provider +1- [phone] Allergies Active Allergy Reactions Criticality Noted Date [...] High 05/09/2008 Bronchospasm or Wheezing Ipratropium [place] Unknown/Patient and Family Unable to Define Medium [...] 1 capsule by mouth daily. Active B Ieonjxe-A-Esczz Acid (STRESS 500 B-COMPLEX PO) Take 1 [...] & B MEDICARE PART A & B [facility] Care Teams Garden Worker Relationship Specialty Start Date End Date Caitlyn Bowie MD [address] [place] [address] PCP - General Internal Medicine 03/20/23
--- OUTSIDE RECORDS SUMMARY | 2025-06-26 16:21 | XMS_ITS | Encounter Summary ---
Author Organization [facility] Address [address] [place] [address] Phone Care Team Providers Care Director Dietetics Department Name Role Phone Caitlyn Bowie MD Primary Care Provider +1- [phone] Encounter Details Date Type Department Care Team (Late Contact Info) Description 12/10/2024 Documentation Only [facility] [address] [place] [address] Marina Abdi [address] [place] [address] Social History Tobacco Use Types [...] [facility] [address] [place] [address] Rubén Ashraf MD [address] [place] [address] [place]. [place] [address] documented as of this encounter Visit Diagnoses Not on filedocumented in this encounter Care Teams Director Dietetics Department Relationship Specialty Start Date End Date Caitlyn Bowie MD [address] [place], [place] PCP - General Internal Medicine 09/24/24 documented as of this encounter
--- OUTSIDE RECORDS SUMMARY | 2025-06-26 16:21 | XMS_ITS | Encounter Summary ---
Author Organization [facility] Address [address] [place] [address] Phone Care Team Providers Care Ink Grinder Name Role Phone Caitlyn Bowie MD Primary Care Provider +1- [phone] Encounter Details Date Type Department Care Team (Late Contact Info) Description 03/17/2025 Documentation Only [facility] [address] [place] [address] Marina Abdi [address] [place] [address] Social History Tobacco Use Types [...] [facility] [address] [place] [address] Rubén Ashraf MD [address] [place] [address] [place] [address] documented as of this encounter Visit Diagnoses Not on filedocumented in this encounter Care Teams Ink Grinder Relationship Specialty Start Date End Date Caitlyn Bowie MD [address] [place], [place] PCP - General Internal Medicine 09/24/24 documented as of this encounter
--- OUTSIDE RECORDS SUMMARY | 2025-06-26 16:21 | XMS_ITS | Encounter Summary ---
Author Organization [facility] Address [address] [place] [address] Phone Care Team Providers Care Scroll Saw Operator Name Role Phone Caitlyn Bowie MD Primary Care Provider +1- [phone] Encounter Details Date Type Department Care Team (Late Contact Info) Description 12/10/2024 Documentation Only [facility] [address] [place] [address] Marina Abdi [address] [place] [address] Social History Tobacco Use Types [...] [facility] [address] [place] [address] Rubén Ashraf MD [address] [place] [address] [place] [address] documented as of this encounter Visit Diagnoses Not on filedocumented in this encounter Care Teams Scroll Saw Operator Relationship Specialty Start Date End Date Caitlyn Bowie MD [address] [place], [place] PCP - General Internal Medicine 09/24/24 documented as of this encounter
--- OUTSIDE RECORDS SUMMARY | 2025-06-26 16:21 | XMS_ITS | Patient Health Record ---
Author Organization [facility] Address [address] [place] [address] Care Team Providers Care Certified Registered Dental Assistant Name Role Phone Shruti Bowieberly Primary Care Provider Cristian Fountain [phone] Allergies Allergen (clinical drug ingredient) Drug/Non Drug Allergy documented on EMR Reaction Allergy Type Onset Date Status gentamicin gentomycin (uncoded) Unknown Allergy Active ipitromium bromide (uncoded) Unknown Allergy Active ivp dye (uncoded) Unknown Allergy Ac tive novacain (uncoded) Unknown Allergy A ctive some muscle relaxers (uncoded) Unknown Allergy Active voltarin (uncoded) Unknown Allergy A ctive azithromycin zithromycin (uncoded) Unknown Allergy Active moxifloxacin Avelox Unknown Drug Allergy Acti ve Biaxin Unknown Drug Allergy Active ciprofloxacin Cipro Unknown Drug Allergy Act esmer metronidazole Flagyl Unknown Drug Allergy Act esmer Gastrografin Unknown Drug Allergy Acti ve Levaquin Unknown Drug Allergy Active Voltaren Unknown Drug Allergy Active shrimp allergenic extract Shrimp (Diagnostic) Unknown Drug Allergy Active barium sulfate Barium Sulfate Unknown Drug Allergy Active Bee Sting Unknown Allergy Active Substance with sulfonamide structure and antibacterial mechanism of action (substance) Sulfa Antibiotics Unknown Drug Allergy Active erythromycin Erythromycin Unknown Drug Allergy A ctive Penicillin Unknown Drug Allergy Active vancomycin Vancomycin Unknown Drug Allergy Activ e Avocado Avocado Unknown Allergy Active Reason For Referral No Information Medications Medication SIG (Take, Route, Frequency, Duration) Notes Start Date End Date Status Tussin Active Zinc 50 MG Tablet 1 tablet Orally Once a day; Duration: 30 day(s) Active Vitamin B 12 100 MCG Lozenge as directed Orally Active Vitamin D-3 125 MCG (5000 UT) Tablet as directed Orally Active Elderberry 500 MG Capsule as directed Orally Active Stool Softener 100 MG Capsule 1 capsule as needed Orally Once a day; Duration: 30 day(s) Active Probiotic - Tablet Chewable as directed Orally Active ZyrTEC Allergy 10 MG Tablet 1 tablet Ora lly Once a day; Duration: 30 day(s) Active Vitamin C 500 MG Capsule as directed Orally Active Singulair 10 MG Tablet 1 tablet Orally O nce a day; Duration: 30 day(s) Active Montelukast Sodium 10 MG Tablet 1 tablet Orally Once a day; Duration: 30 day(s) Active Metoprolol Succinate ER 25 MG Tablet Extended Release 24 Hour 1 tablet Orally Once a day; Duration: 30 day(s) Active Magnesium 300 MG Capsule 1 capsule with a meal Orally Once a day; Duration: 30 day(s) Active Coumadin 1 MG Tablet 1 tablet Orally Onc e a day; Duration: 30 day(s) Active traZODone HCl 100 MG Tablet 1 tablet at bedtime Orally Once a day; Duration: 30 day(s) Active Azelastine HCl 137 MCG/SPRAY Solution 1 puff in each nostril Nasally Twice a day; Duration: 30 day(s) Active Valium 5 MG Tablet 1 tablet as needed O rally Once a day Active Albuterol Sulfate (2.5 MG/3ML) 0.083% Nebulization Solution 3 ml as needed Inhalation every 6 hrs Active Synthroid 25 MCG Tablet 1 tablet in the morning on an empty stomach Orally Once a day; Duration: 30 day(s) Active Advair HFA 230-21 MCG/ACT Aerosol 2 puffs Inhalation Twice a day Active Furosemide 20 MG Tablet 1 tablet Orally Once a day; Duration: 30 day(s) Active Meclizine HCl 25 MG Tablet Chewable 1 tablet as needed Orally Once a day; Duration: 30 day(s) Active Omeprazole 40 MG Capsule Delayed Release 1 capsule 30 minutes before morning meal Orally Once a day; Duration: 30 day(s) Active Immunizations Vaccine Route Administration Date Status Comme nts Influenza Unknown 04/27/2021 Administered Social History Tobacco Use: Social History Observation Description Date Details (start date - stop date) Never Smoker NA - NA Social History Drugs/Alcohol: Social Info Question Answer Notes Alcohol Screen Did you have a drink containing alcohol in the past year? No Points 0 Interpretation Negative Tobacco Use: Social Info Question Answer Notes Tobacco Use/Smoking Patient is a nonsmoker Additional Details Category Social Info Options Details Miscellaneous: Marital status: Occupation: retired Section Notes: Nonsmoker; no alcohol Problems Problem Type SNOMED Code ICD Code Onset Dates Problem Status W/U Status Risk Notes Problem Diverticulitis (03495306) Diverticulitis (K57.92) Active confirmed Problem Irritable bowel syndrome characterized by constipation (651947051) Irritable bowel syndrome with constipation (K58.9) Active confirmed Problem Gastroesophageal reflux disease (094707210) GERD (gastroesophageal reflux disease) (K21.9) Active confirmed Plan Of Treatment No Information Insurance Providers Payer Name Payer Address Payer Phone Subscriber Number Group Number Insured Name Patient Relationship to Insured Coverage Start Date Coverage End Date MEDICARE OF [place] [address] [facility] [place] [address] [phone] [id number] SHIRLEYCINDA CHEN Self - patient is the insured [employer] ATT[employer] CLAIMS [address] [place] [phone] [id number] SHIRLEY CINDA Self - patient is the insured Medical (General) History Medical History History ICD Code RI-04/2021-sees Dr. [...] a nd Antiphospholipid antibody--has had DVT's and PE's---[employer] at [place] and Dr. Hogan at [facility]-has had EGD's with Dr. Gomes Pneumomias Hypothyroidism Surgical History Surgery Date(Month/Year) Tonsils and adenoids BOLA Lung cancer-Left lower lobectomy at [facility], XRT, Chemo 2008
--- OUTSIDE RECORDS SUMMARY | 2025-06-26 16:21 | XMS_ITS | Encounter Summary ---
Author Organization [facility] Address [address] [place] [address] Phone Care Team Providers Care Expeller Operator Name Role Phone Caitlyn Bowie MD Primary Care Provider +1- [phone] Encounter Details Date Type Department Care Team (Late Contact Info) Description 12/12/2024 Documentation Only [facility] [address] [place] [address] Marina Abdi [address] [place] [address] Social History Tobacco Use Types [...] Visit [facility] [address] [place] [address] Rubén Ashraf MD [address] [place] [address] [place] [address] documented as of this encounter Visit Diagnoses Not on filedocumented in this encounter Care Teams Expeller Operator Relationship Specialty Start Date End Date Caitlyn Bowie MD [address] [place], [place] PCP - General Internal Medicine 09/24/24 documented as of this encounter
--- OUTSIDE RECORDS SUMMARY | 2025-06-26 16:21 | XMS_ITS | Encounter Summary ---
Author Organization [facility] Address [address] [place] [address] Phone Care Team Providers Care Adult Daycare Coordinator Name Role Phone Caitlyn Bowie MD Primary Care Provider +1- [phone] Encounter Details Date Type Department Care Team (Late Contact Info) Description 12/10/2024 Documentation Only [facility] [address] [place] [address] Marina Abdi [address] [place] [address] Social History Tobacco Use Types [...] [facility] [address] [place] [address] Rubén Ashraf MD [address] [place] [address] [place] [address] documented as of this encounter Visit Diagnoses Not on filedocumented in this encounter Care Teams Adult Daycare Coordinator Relationship Specialty Start Date End Date Caitlyn Bowie MD [address] [place], [place] PCP - General Internal Medicine 09/24/24 documented as of this encounter
--- OUTSIDE RECORDS SUMMARY | 2025-06-26 16:21 | XMS_ITS | Encounter Summary ---
Author Organization [facility] Address [address] [place] [address] Phone Care Team Providers Care Orthotist/Prosthetist Name Role Phone Caitlyn Bowie MD Primary Care Provider +1- [phone] Encounter Details Date Type Department Care Team (Late Contact Info) Description 12/10/2024 Documentation Only [facility] [address] [place] [address] Marina Abdi [address] [place] [address] Social History Tobacco Use Types [...] [facility] [address] [place] [address] Rubén Ashraf MD [address] [place] [address] [place] [address] documented as of this encounter Visit Diagnoses Not on filedocumented in this encounter Care Teams Orthotist/Prosthetist Relationship Specialty Start Date End Date Caitlyn Bowie MD [address] [place], [place] PCP - General Internal Medicine 09/24/24 documented as of this encounter
--- OUTSIDE RECORDS SUMMARY | 2025-06-26 16:21 | XMS_ITS | Encounter Summary ---
Author Organization [facility] Address [address] [place] [address] Phone Care Team Providers Care Personalized Living Assistant Name Role Phone Caitlyn Bowie MD Primary Care Provider +1- [phone] Encounter Details Date Type Department Care Team (Late Contact Info) Description 03/24/2025 Documentation Only [facility] [address] [place] [address] Marina Abdi [address] [place] [address] Social History Tobacco Use Types [...] [facility] [address] [place] [address] Rubén Ashraf MD [address] [place] [address] [place] [address] documented as of this encounter Visit Diagnoses Not on filedocumented in this encounter Care Teams Personalized Living Assistant Relationship Specialty Start Date End Date Caitlyn Bowie MD [address] [place], [place] PCP - General Internal Medicine 09/24/24 documented as of this encounter
--- OUTSIDE RECORDS SUMMARY | 2025-06-26 16:21 | XMS_ITS | Clinical Summary ---
Author Organization [facility] Prior to 12/07/[address] [place] [address] Care Team Providers Care Yard Hostler Name Role Phone Brennan Burnett MD Primary Care Provider [phone] Allergies Active Allergy Reactions Criticality Noted Date [...] age to complete this topic Care Teams Yard Hostler Relationship Specialty Start Date End Date Brennan Burnett MD [address] [place] [address] PCP - General Internal Medicine 07/06/20
--- OUTSIDE RECORDS SUMMARY | 2025-06-26 16:22 | XMS_ITS | Clinical Summary ---
Author Organization [facility] Address [address] [place] [address] Phone Care Team Providers Care Marketing Teacher Name Role Phone Caitlyn Bowie MD Primary Care Provider +1- [phone] Allergies Active Allergy Reactions Criticality Noted Date Comments Amlodipine Other Medium 11/23/2020 flushing Other reaction(s): Other (See Comments) flushing Other reaction(s): Other (See Comments) flushing flushing Avanafil Anaphylaxis,Unknown High 07/27/2022 Other reaction(s): Unknown Avocado High 04/15/2013 Other reaction(s): Resp Distress Avocado (Laurus Persea) Anaphylaxis,Shor tnes s of breath,Unknown High 04/15/2013 Other reaction(s): Resp Distress Other reaction(s): Resp Distress Other reaction(s): Resp Distress Other reaction(s): Resp Distress Other reaction(s): Resp Distress Azithromycin 03/05/2013 Barium Iodide Unknown,Anaphylaxis, Other,Rash High 01/19/2016 Other Reaction(s): Rash/Dermatitis Other reaction(s): Throat Closes Other reaction(s): Throat Closes Other reaction(s): Throat Closes Other reaction(s): Throat Closes Barium Sulfate Unknown 09/16/2016 Bee Pollen 04/15/2013 Other reaction(s): Resp Distress Allergic to bee stings Bee Venom Protein (Honey Bee) 09/06/2021 Buspirone Anaphylaxis High 01/04/2022 CAUSES DIZZINESS, HEADACHE AND FEELING OF THROAT TIGHTNESS Ciprofloxacin 08/26/2014 Patient reported that she couldn't walk Clarithromycin Wheezing High 11/07/2012 Other Reaction(s): Rash/Dermatitis Clindamycin 12/10/2024 CAUSES THROAT TIGHTENING Colistin Unknown Medium 12/18/2021 Diatrizoate Shiloh-Diatrizoat Sod 09/16/2016 Diatrizoate Meglumine Swelling High 09/23/2015 Throat tightness Diclofenac Anaphylaxis,Wheezing High 11/07/2012 Other Reaction(s): Rash/Dermatitis Diclofenac Sodium 09/26/2014 Erythromycin Anaphylaxis,Wheezing High 11/07/2012 Other Reaction(s): Rash/Dermatitis Gentamicin Anaphylaxis,Wheezing High 11/07/2012 Other Reaction(s): Rash/Dermatitis Iodinated Contrast Media Swelling,Wheezing High 11/07/2012 Other Reaction(s): Rash/Dermatitis Ipratropium 12/10/2024 Ipratropium Embarrass Unknown Medium 12/18/2021 Isosorbide Mononitrate Headache 11/23/2020 Levofloxacin Nausea And [...] Anaphylaxis,Wheezing High 11/07/2012 Other Reaction(s): Rash/Dermatitis Medications ASCORBIC [...] each day. 30 tablet 2 5 Active Jardiance 10 mg tablet Take 1 tablet (10 mg total) by mouth 1 (one) time each day. 5 Active furosemide (LASIX) 40 mg tablet Take 2 tablets (80 mg total) by mouth 2 (two) times a day. 5 Active riboflavin (VITAMIN B2) 400 mg [...] 20 mg as needed by her previous sugar sampler which she has taken sporadically. I have asked her to take this daily to see if this improves her symptoms and she has a follow-up appointment with Dr. Shah on September 16 which she will keep. We also had a long conversation regarding the fact that she is seeing 3 different sugar sampler for the same problems. We informed her [...] continues to see Dr. Avalos or her sugar sampler at [facility]. 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); Optic neuritis; Gait abnormality 05/14/2025 9:45 AM EST Treatment [address] [address] JoshBruno de anda M, PT Gait abnormality (Primary Dx); Cerebral lesion 05/12/2025 1:45 PM EST Treatment [address] [address] Gene Marshall PTA Gait abnormality (Primary Dx); Cerebral lesion 05/12/[address] [address] Ayanna Jaffe MD 04/14/2025 10:00 AM EDT Evaluation [address] [address] Bruno Moreno, PT Gait abnormality (Primary Dx); Cerebral lesion 04/14/2025 Plan of Care Documentation [address] [address] 04/11/2025 Telephone Gastroenterology - [address] [phone] Tim Gomes MD from Last 3 Months Immunizations Immunization Administration [...] DX:Akathisia Anxiety 12/07/2016 DX:Anxiety Bronchiectasis (CMS/HCC V24, [facility]/HCC V28) 08/08/2017 DX:Bronchiectasis (HCC) Cataract 08/26/2014 DX:Cataract Chronic obstructive pulmonar y disease (CMS/HCC V24, [facility]/HCC V28) 04/13/2017 DX:Chronic obstructive pulm onary [...] dori pect Heterozygous factor V Leiden mutation ([facility]/HCC V24) 04/04/2017 DX:Heterozygous factor V Lei [...] syndrome 02/18/2013 DX:Postc oncussion syndrome Pulmonary hypertension ([facility] V24, [facility] V28) 04/04/2017 DX:Pulmonary hypertension (H CC) Restrictive lung disease 08/08/2017 DX:Rest rictive lung disease 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 DX:Zinc deficien cy Obstructive sleep apnea syndrome 04/04/2017 DX:Obstructive sleep apnea syndrome; COMMENT: CPAP Radiation-induced pulmonary fibrosis ([facility] V24) 11/13/2017 DX:Radiation-induced pulmona ry fibrosis (HCC) Adrenal insufficiency ([facility] V24) 08/23/2018 DX:Adrenal insufficiency (HCC) Hyperparathyroidism ([facility] V24) 08/23/2018 DX:Hyperparathyroidism (HCC) [...] Mx LLL resection, Chemo, RT, Cisplatin, Vinorelbine [phone] Antiphospholipid antibody sy ndrome ([facility] V24) 12/24/2018 DX:Antiphospholipid antibody syndrome (HCC) 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 Hyperparathyroidism ([facility] V24) DX:Hyperparathyroidism (HCC) Adrenal insufficiency ([facility] V24) DX:Adrenal insufficiency (HCC) [...] Orientation Straight 06/15/2024 3: 38 PM EST Last Filed Vital Signs Vital Sign Reading Time Taken Comments Blood Pressure 124/56 05/29/2025 3:09 PM EST Pulse 68 05/29/2025 3:09 PM EST Temperature 36.8 C (98.2 F) 02/23/2025 12:44 PM EDT Respiratory Rate 18 02/23/2025 12:44 PM EDT Oxygen Saturation 95% 05/29/2025 3:09 PM EST Inhaled Oxygen Concentration - - Weight 57.6 kg (127 lb) 05/29/2025 3:09 PM EST Height 157.5 cm (5' 2 ) 05/29/2025 3:09 PM EST Body Mass Index 23.23 05/29/2025 3:09 PM EST Plan of Treatment Upcoming Encounters Date Type Department Care Team (Late st Contact Info) Description 11/27/2025 1:00 PM EDT Office Visit [facility] [address] [facility] [address] [place] [address] Ayanna Jaffe MD [address] [place], [place] [id number] Health Maintenance Due Date Last Done Comments [...] 4/5 L PT LTG 16 visits from [facility] on 04/14/2025 General No Bruno Moreno, PT Note: [x] = goal MET [] = goal NOT MET [] Pt will be able to negotiate one flight of stair reciprocally [] Pt will be able to perform car transfers without UE support [] Pt will improve LOZOYA balance score to 52/26 Procedures Procedure Name Priority Date/Time Associated Diagnosis Comments COMPREHENSIVE METABOLIC PANEL STAT 02/23/2025 1:15 PM EDT from Last 3 Months or Most Recently Relevant to Health Maintenance Results * (ABNORMAL) Comprehensive Metabolic Panel (CMP) (02/23/2025 1:15 PM EDT) Sodium 136 133 - 145 mmol/L LAB CHEMISTRY METHOD 02/23/2025 2:13 PM [facility] Potassium 3.5 3.5 - 5.5 mmol/L LAB CHEMISTRY METHOD 02/23/2025 2:13 PM [facility] Chloride 97 96 - 110 mmol/L LAB CHEMISTRY METHOD 02/23/2025 2:13 PM [facility] CO2 33(H) 21 - 32 mmol/L LAB CHEMISTRY METHOD 02/23/2025 2:13 PM [facility] Anion Gap 6 3 - 11 LAB CHEMISTRY METHOD 02/23/2025 2:13 PM [facility] Glucose 100 70 - 100 mg/dL LAB CHEMISTRY METHOD 02/23/2025 2:13 PM [facility] BUN 23 5 - 25 mg/dL LAB CHEMISTRY METHOD 02/23/2025 2:13 PM [facility] Creatinine 0.83 0.50 - 1.10 mg/dL LAB CHEMISTRY METHOD 02/23/2025 2:13 PM EDT [facility] eGFR 71 >=60 mL/min/1. 73m2 LAB CHEMISTRY METHOD 02/23/2025 2:13 PM EDT [facility] Comment:Calculation based on the Chronic Kidney Disease Epidemiology Collaboration (CKD-EPI) equation refit without adjustment for race. BUN/Creatinine Ratio 27.7 LAB CHEMISTRY METHOD 02/23/2025 2:13 PM EDT [facility] Calcium 10.0 8.5 - 10.5 mg/dL LAB CHEMISTRY METHOD 02/23/2025 2:13 PM T [facility] AST (SGOT) 29 10 - 42 unit/L LAB CHEMISTRY METHOD 02/23/2025 2:13 PM [facility] ALT (SGPT) 24 10 - 60 unit/L LAB CHEMISTRY METHOD 02/23/2025 2:13 PM T [facility] Alkaline Phosphatase 72 42 - 121 unit/L LAB CHEMISTRY METHOD 02/23/2025 2:13 PM EDT [facility] Total Protein 6.9 6.0 - 8.0 g/dL LAB CHEMISTRY METHOD 02/23/2025 2:13 PM [facility] Albumin 3.5 3.2 - 5.0 g/dL LAB CHEMISTRY METHOD 02/23/2025 2:13 PM T [facility] Total Bilirubin 0.5 0.0 - 1.4 mg/dL LAB CHEMISTRY METHOD 02/23/2025 2:13 PM [facility] Blood Venous blood specimen / Unknown Venipuncture / Unknown 02/23/2025 1:15 PM EDT 02/23/2025 1:39 PM EDT us Afsaneh [facility] LAB BLOOD ORDERABLES Final R esult [facility] [place] [facility] [address] [place] [address], from Last 3 Months or Most Recently Relevant to Health Maintenance Insurance MEDICARE [facility] Advance Directives Documents on File Type Date Recorded 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
--- OUTSIDE RECORDS SUMMARY | 2025-06-26 16:22 | XMS_ITS | Encounter Summary ---
Author Organization [facility] Address [address] [place] [address] Phone Care Team Providers Care Neuropsychiatric Aide Name Role Phone Caitlyn Bowie MD Primary Care Provider +1- [phone] Encounter Details Date Type Department Care Team (Late Contact Info) Description 06/11/2025 Documentation Only [facility] [address] [place] [address] Marina Abdi [address] [place] [address] Social History Tobacco Use Types [...] [facility] [address] [place] [address] Rubén Ashraf MD [address] [place] [address] [place] [address] documented as of this encounter Visit Diagnoses Not on filedocumented in this encounter Care Teams Neuropsychiatric Aide Relationship Specialty Start Date End Date Caitlyn Bowie MD [address] [place], [place] PCP - General Internal Medicine 09/24/24 documented as of this encounter
--- OUTSIDE RECORDS SUMMARY | 2025-06-26 16:22 | XMS_ITS | Encounter Summary ---
Author Organization [facility] Address [address] [place] [address] Care Team Providers Care Project Development Director Name Role Phone Caitlyn Bowie MD Primary Care Provider +1- [phone] Encounter Details Date Type Department Care Team (Late st Contact Info) Description 03/14/2025 Scanned Document [facility] Neurology Ophthalmology [address] [place] [address] Shirley Chaidez PA-C [address] [address] Social History Tobacco Use Types Packs/Day Years [...] filedocumented in this encounter Care Teams Project Development Director Relationship Specialty Start Date End Date Caitlyn Bowie MD [address] [place] [address] PCP - General Internal Medicine 03/20/23 documented as of this encounter
--- OUTSIDE RECORDS SUMMARY | 2025-06-26 16:22 | XMS_ITS | Encounter Summary ---
Author Organization [facility] Address [address] [place] [address] Phone Care Team Providers Care Echo Vasc Tech Name Role Phone Caitlyn Bowie MD Primary Care Provider +1- [phone] Encounter Details Date Type Department Care Team (Late Contact Info) Description 06/11/2025 Documentation Only [facility] [address] [place] [address] Marina Abdi [address] [place] [address] Social History Tobacco Use Types [...] [facility] [address] [place] [address] Rubén Ashraf MD [address] [place] [address] [place] [address] documented as of this encounter Visit Diagnoses Not on filedocumented in this encounter Care Teams Echo Vasc Tech Relationship Specialty Start Date End Date Caitlyn Bowie MD [address] [place], [place] PCP - General Internal Medicine 09/24/24 documented as of this encounter
--- OUTSIDE RECORDS SUMMARY | 2025-06-26 16:22 | XMS_ITS | Patient Health Record ---
Author Organization [facility] Address [address] [place] [address] Care Team Providers Care Material Hauler Name Role Phone EVELIN ARMSAY Primary Care Provider Yenny Hou Unavailable [phone] Allergies Allergen (clinical drug ingredient) Drug/Non Drug [...] 25MCG 1 ORAL daily; Durati on: -3 [facility] 06/10/2014 Active ZyrTEC Allergy 10MG 1 [...] 50MG 1 ORAL at bedtime; Duration: -3 [facility] 06/10/2014 Active Meclizine HCl 25 MG 1 tablet as needed Orally [facility] 06/10/2014 Active Albuterol Sulfate (2.5 MG/3ML)0.083% Inhalation 4 x a day prn 06/10/2014 Active Valium 5MG 1 tablet as needed O RAL at bedtime, 1/2 tab prn during the day [facility] 06/10/2014 Active Social History Tobacco Use: [...] Status Risk Notes Problem Postmenopausal atrophic vaginitis (10924751) Postmenopausal atrophic vaginitis (N95.2) Active confirmed Problem Age-related osteoporosis (680273141) Age-related osteoporosis without current pathological fracture (M81.0) Active confirmed Problem Urgent desire to urinate (68318706) Urgency of urination (R39.15) Active confirmed Problem 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 Problem Chronic systolic heart failure (807630834) Chronic systolic (congestive) heart failure (I50.22) Active confirmed Problem Chronic obstructive pulmonary disease (21722263) Chronic obstructive pulmonary disease, unspecified (J44.9) Active confirmed Problem Functional urinary incontinence (581494348) Functional 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) Active confirmed Problem Personal history of primary malignant neoplasm of bronchus (339697716) 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) Active confirmed Vital Signs Temperature 97.7 degrees Fahrenheit 07/18/2024 Blood pressure diastolic 62 mm Hg 07/18/2024 Height 63 in 07/18/2024 Blood pressure systolic 102 mm Hg 07/18/2024 Weight 126 lbs 07/18/2024 BMI 22.32 kg/m2 07/18/2024 Encounters Encounter Location Date Provider Diagnosis Total [address] [address] 07/09/2024 Yenny Elizalde Urgency of urination R39.15 ; Acute vaginitis N76.0 and Postmenopausal atrophic vaginitis N95.2 [facility] [address] [address] 07/18/2024 Yenny Elizalde Encounter for screening mammogram [...] Date MEDICARE [address] VEDA NIEVES [id number] CINDA WATSON Self - patient is the insured MEDEX [address] [place] [address] [id number] CINDA WATSON Self - patient is [...] Hereditary deficiency of other clotting factors D68.2 Cutaneous abscess of buttock L02.31 Sebaceous cyst L72.3 Pelvic Pain R10.2 Urgency of urination R39.15 Frequency of micturition R35.0 Essential (primary) hypertension I10 Chronic systolic (congestive) heart fail ure I50.22 Chronic obstructive pulmonary disease, u nspecified J44.9 Abscess of vulva N76.4 Mastodynia N64.4 Surgical History Surgery Date(Month/Year) Hysterectomy 1977 Tonsillectomy/Adendoidectomy Colonoscopy Right Breast Fibroid Removed Left Lower Lung Lobectomy, Lung Cancer 2 009 Excise Hematoma, Adrenal Issues Hospitalization History Reason Date(Month/Year) See Surgical Hx Pneumonia, Hematosis, Blood Clots Respiratory Failure 2 Vaginal Deliveries DVT at 33
--- OUTSIDE RECORDS SUMMARY | 2025-06-26 16:22 | XMS_ITS | Encounter Summary ---
Author Organization [facility] Address [address] [place] [address] Phone Care Team Providers Care Instrumentation Fitter Name Role Phone Caitlyn Bowie MD Primary Care Provider +1- [phone] Encounter Details Date Type Department Care Team (Late Contact Info) Description 06/11/2025 Documentation Only [facility] [address] [place] [address] Marina Abdi [address] [place] [address] Social History Tobacco Use Types [...] [facility] [address] [place] [place] [address] Rubén Ashraf MD [address] [place] [address] [place] [address] documented as of this encounter Visit Diagnoses Not on filedocumented in this encounter Care Teams Instrumentation Fitter Relationship Specialty Start Date End Date Caitlyn Bowie MD [address] [place], [place] PCP - General Internal Medicine 09/24/24 documented as of this encounter
--- OUTSIDE RECORDS SUMMARY | 2025-06-26 16:22 | XMS_ITS | Encounter Summary ---
Author Organization [facility] Address [address] [place] [address] Care Team Providers Care Distillery Miller Name Role Phone Pcp, No Primary Care Provider Brennan Mario MD Primary Care Provider [phone] Caitlyn Bowie MD Primary Care Provider [phone]- [phone] Encounter Details Date Type Department Care Team (Late st Contact Info) Description 01/04/2022 Scanned Document [facility] Neurology Ophthalmology [address] [address] Yary Whitten DO [address] [place] [address] Social History Tobacco Use Types Packs/Day [...] on filedocumented in this encounter Care Teams Distillery Miller Relationship Specialty Start Date End Date Pcp, No PCP - General General Medicine 10/04/21 07/18/22 Brennan Burnett MD [address] [place] [address] PCP - General 07/19/22 03/19/23 Caitlyn Bowie MD [address] [place] [address] PCP - General Internal Medicine 03/20/23 documented as of this encounter
--- OUTSIDE RECORDS SUMMARY | 2025-06-26 16:22 | XMS_ITS | Data Portability ---
Author Organization [place] [facility] Address [address] [place] [address] Care Team Providers Care Audiology Doctor Name Role Phone DEVENDRA EVELIN Primary Care Provider [phone] SHANTI YBARRA OTHER Assessment Encounter Date Assessment [...] 911 activated Plan/Discussion: EMS handoff given to [facility] In order to obtain further information and compare any laboratory results/values, I have accessed old patient records. This information was pertinent in my medical decision making today. [email or web address] Not available 03/14/2021 13:20:46 07/18/2021 07/18/2021 Overview/History [...] of yet. -She is educated to orange picker machine operator stool softeners to help promote BM -She [...] I have accessed patient records on the [employer] and old patient records. This [...] after care of this [facility]. Time On Scene [...] noting blood on her pillow approximately 3 kiowa tribe when she woke this morning. She has [...] after care of this patient according to [facility]'s infection prevention protocols. [email or web address] Not available 12/29/2021 14:43:37 Plan of Treatment Reminders Order Date Submit Date Provider Last Modified By Organization Details Last Modified Time Details Appointments None recorded. Lab None recorded. Referral None recorded. Procedures None recorded. Surgeries None recorded. Imaging None recorded. Medication Orders docusate sodium 100 mg capsule 2021 022 lnovia [id number], [address] [facility], [place], [address], 19:28:14 Patient TargetsNo targets recorded. Patient Instructions Encounter Date Encounter Id Patient Instructions Last Modified By Organization Details Last Modified Time 03/14/2021 [id number] Thank you for yo ur visit with [facility] today. You were seen today for abdominal [...] in your condition between 8am-10pm, please call [facility] at [phone] to help navigate your care. [email or web address] Not available 03/14/2021 12:46:32 10/18/2021 [id number] It was great to see you today! Thank you for letting [facility] assist you in your medical needs today. [...] follow up with your PCP please [facility] for [facility]uation. Please present to [...] 1.2 0.9-1. 2 Not Available [facility] [address] [facility], [place], [address], 02/11/2021 16:58:14 02/12/20 21 02/11/2021 , sylvia vance lower extre mity No observ ation record ed. [address] (Imaging) [address] [place], [address], 02/12/2021 08:19:41 Result Notes None recorded. Problems Name Problem SNOMED Code Status Onset Date Resolution Date Notes Provider Name and Address Organization Details Recorded Time Chronic obstructive pulmonary disease 75267283 Active 2018 ARCELIA PATELALON WINSTON [address], [place], [address], [place] [facility] 9 12:59:21 Problem Notes None recorded. Procedures Surgical History Date Name Laterality Status Provider Name and Address Organization Details Recorded Time Total Hysterectomy completed Cristine Sidhu, ALON [address], [place], [address], [place] [facility] 10/18/2021 19:39:45 lobectomy of lung completed Cristine frazier, DIESEL PILE HAMMER OPERATOR [address], [place], [address], [place] [facility] 10/18/2021 19:40:05 Remove tonsils and adenoids completed Cristine Sidhu, ALON [address], [place], [address], [place] [facility] 10/18/2021 19:40:22 Imaging Results None recorded. Procedure Notes None recorded. Medical Equipment None Reported. Allergies Allergen ID Allergen Name Allergen Category Reaction Reaction Severity Criticality Documentation Date Start Date Code Code System Note Provider Name and Address Organization Details Recorded Time 68783 Product containin g penicilli n (product) medicatio n Not available Not available Not available 06/15/2019 95449 8001 SNOMED ARCELIA AMANDAALON WINSTON [address], [place], [address], [place] [facility] 9 12:56:48 42688 Substance with sulfonami de structure and antibacte rial mechanism of action (substanc e) medicatio n Not available Not available Not available 06/15/2019 55905 8003 SNOMED ARCELIA AMANDAALON WINSTON [address], [place], [address], [place] [facility] 9 12:56:54 17647 Voltaren medicatio n Not available Not available Not available 06/15/201920373 6 RxNorm ARCELIA FAJARDO , DIESEL PILE HAMMER OPERATOR [address], [place], [address], [place] [facility] 9 12:57:01 74043 Iodinated contrast media (substanc e) medicatio n Not available Not available Not available 06/15/2019 01473 2004 SNOMED ARCELIA FAJARDO , DIESEL PILE HAMMER OPERATOR [address], [place], [address], [place] [facility] 9 12:57:07 79928 vancomyci n medicatio n Not available Not available Not available 06/15/2019 31605 RxNorm ARCELIA FAJARDO , DIESEL PILE HAMMER OPERATOR [address], [place], [address], [place] [facility] 9 12:57:14 40542 gentamici n medicatio n Not available Not available Not available 06/15/2019 08235 50 RxNorm ARCELIA FAJARDO , DIESEL PILE HAMMER OPERATOR [address], [place], [address], [place] [facility] 9 12:57:20 96189 Biaxin medicatio n Not available Not available Not available 06/15/201966489 9 RxNorm ARCELIA FAJARDO , DIESEL PILE HAMMER OPERATOR [address], [place], [address], [place] [facility] 9 12:57:27 79035 Avelox medicatio n Not available Not available Not available 06/15/2019 33329 6 RxNorm ARCELIA FAJARDO , DIESEL PILE HAMMER OPERATOR [address], [place], [address], [place] [facility] 9 12:57:34 68979 erythromy jaylon medicatio n Not available Not available Not available 06/15/2019 4053 RxNorm ARCELIA FAJARDO , DIESEL PILE HAMMER OPERATOR [address], [place], [address], [place] [facility] 9 12:57:41 71559 Zithromax medicatio n Not available Not available Not available 06/15/2019 92984 4 RxNorm ARCELIA FAJARDO , DIESEL PILE HAMMER OPERATOR [address], [place], [address], [place] [facility] 9 12:57:51 26053 Levaquin medicatio n Not available Not available Not available 06/15/2019 58927 2 RxNorm ARCELIA FAJARDO , DIESEL PILE HAMMER OPERATOR [address], [place], [address], [place] [facility] 9 12:58:02 95109 Cipro medicatio n Not available Not available Not available 06/15/2019 45796 3 RxNorm ARCELIA FAJARDO , DIESEL PILE HAMMER OPERATOR [address], [place], [address], [place] [facility] 9 12:58:08 38969 morphine medicatio n Not available Not available Not available 06/15/2019 7052 RxNorm ARCELIA FAJARDO , DIESEL PILE HAMMER OPERATOR [address], [place], [address], [place] [facility] 9 12:58:20 79838 procaine hydrochlo ride medicatio n Not available Not available Not available 06/15/2019 68129 8 RxNorm ARCELIA FAJARDO , DIESEL PILE HAMMER OPERATOR [address], [place], [address], [place] [facility] 9 12:58:42 54223 barium sulfate medicatio n Not available Not available Not available 06/15/2019 1331 RxNorm ARCELIA FAJARDO , DIESEL PILE HAMMER OPERATOR [address], [place], [address], [place] [facility] 9 12:58:54 89070 Gastrogra fin medicatio n Not available Not available Not available 06/15/2019 13788 5 RxNorm ARCELIA FAJARDO , DIESEL PILE HAMMER OPERATOR [address], [place], [address], [place] [facility] 9 12:59:01 13451 Flagyl medicatio n Not available Not available Not available 06/15/2019 92475 6 RxNorm ARCELIA FAJARDO , DIESEL PILE HAMMER OPERATOR [address], [place], [place], [address], [place] [facility] 9 12:59:06 59391 shrimp allergeni c extract food Not available Not available Not available 06/15/2019 62708 2 RxNorm ARCELIA FAJARDO , DIESEL PILE HAMMER OPERATOR [address], [place], [place], [address], [place] [facility] [...] Vitals Date Recorded Respiratory rate Oxygen saturation Heart rate Body temperature Systolic And Diastolic Provider Name and Address Organization Details Last Updated DateTime 2 18 /min 98 % 84 /min 98.9 [degF] 112/58 mm[Hg] Not Available [facility] 2 11:16:01 Date Recorded Heart rate Oxygen saturation Respiratory rate Body temperature Systolic And Diastolic Systolic And Diastolic Provider Name and Address Organization Details Last Updated DateTime 2 80 /min 96 % 18 /min 98.9 [degF] 142/66 mm[Hg] 128/60 mm[Hg] Not Available [facility] 2 20:16:17 Date Recorded Oxygen saturation Heart rate Respiratory rate Body temperature Systolic And Diastolic Provider Name and Address Organization Details Last Updated DateTime 2 96 % 77 /min 18 /min 98.6 [degF] 122/60 mm[Hg] Not Available [facility] 2 13:41:00 Date Recorded Heart rate Respiratory rate Oxygen saturation Body temperature Systolic And Diastolic Provider Name and Address Organization Details Last Updated DateTime 1 76 /min 16 /min 97 % 99 [degF] 114/62 mm[Hg] Not Available [facility] 1 12:53:01 Social History Question Answer Notes LastModified by Organizat ion Details LastModified Time Tobacco Smoking Status Never Smoker ARCELIA FAJARDO, ALON [address] [place], [address], [place] [facility] 06/15/2019 13:05:25 Do You [...] Feel Unsteady When Standing Or Walking? Yes [email or web address] Information not available 06/15/2019 Excessive Alcohol Or [...] None Information not available 10/18/2021 Marital Status Informatio n not available 06/15/2019 What Was [...] ICD10 Code Diagnosis IMO Codes Diagnosis Note [id number] ARCELIA PATELANDERSONRANDI, DIESEL PILE HAMMER OPERATOR [facility] [address] [place] [address] 06/15/2019 12:54:37 06/17/2019 13:06:33 Excoriation of skin 442057429 T14.8XXA [id number] JANIS YARBROUGHHER DIESEL PILE HAMMER OPERATOR [facility] [address] [place] [address] 11/13/2019 16:03:00 11/18/2019 14:53:37 Pain in lower limb 65562773 M79.661 [id number] ARCELIA PATELANDERSONRANDI, DIESEL PILE HAMMER OPERATOR [facility] [address] [place] [address] 03/14/2020 20:02:43 03/18/2020 21:30:46 Traumatic hematoma 699894753 T14.8XXA Long-term current use of anticoagulant 211301813 Z79.01 Pain in left foot 826677 0688 99604 M79.672 [id number] EMELIA TOMPKINS [facility] [address] [place] [address] 03/20/2020 12:50:59 03/23/2020 17:54:28 Contusion of lower leg 94663880 S80.10XA Swelling of lower leg 44 0865009 R22.42 [id number] JAMES GARCIA NP [facility] [address] [place] [address] 09/29/2020 11:41:21 09/29/2020 12:38:57 Pain of intercostal space 522120416 R07.82 Exposure t o communicable disease 103175384 Z20.822 [id number] Waleska Matos NP [facility] [address] [place] [address] 02/11/2021 16:34:32 02/12/2021 11:08:44 Hematoma of lower leg 339190773 S80.11XA [id number] JAMES GARCIA NP [facility] [address] [place] [address] 03/14/2021 12:45:30 03/19/2021 14:09:43 Abdominal pain 39438202 R10.9 [id number] EMELIA Alfonso [facility] [address] [place] [address] 07/18/2021 10:56:56 07/22/2021 23:43:22 Constipation 73497788 K59.00 Left lower quadrant pain 799488159 R10.32 [id number] Cristine Sidhu DIESEL PILE HAMMER OPERATOR [facility] [address] [place] [address] 10/18/2021 19:17:00 11/10/2021 16:33:03 Left sided abdominal pain 450605011 R10.9 Hematoma of lower leg 44 9439352 S80.10XA Long-term current use of anticoagulant 654082452 Z79.01 [id number] Cristine JadonALON prieto [facility] [address] [place] [address] 12/29/2021 13:36:24 12/30/2021 10:20:27 Blood coagulation disorder 40907056 D68.61 D68.2 [id number] Olivia Goldberg NP [facility] [address] [place] [address] 01/18/2023 14:00:39 01/18/2023 15:01:49 Health Concerns Section Related Observation LastModified by Organization Detai ls LastModified Time None Recorded Concern Status LastModified by Organization Details LastModified Time None Recorded Advance Directives Directive Y: Payers Insurance Date Sequence Insurance Name Policy Number Policy Pettit Covered Member ID Pettit Member ID Guarantor Name 01/18/2023 2 [place] [id number] Jovana Malik [id number] Jovana Malik 10/18/2021 1 *SELF PAY* Jovana Malik [id number] Jovana Malik 10/18/2021 2 [place] Jovana Malik [id number] Jovana Malik 01/17/2023 2 [place] [id number] Jovana Malik [id number] Jovana Malik 10/18/2021 1 [place] Jovana Malik [id number] Jovana Malik 01/18/2023 1 [place] Jovana Malik [id number] Jovana Malik Notes Date Note Type Note Provider Name and Address Organization Details Recorded Time 1 text/html General HPI Template - DHReported by Patient This is a 75-year-old female, known to [employer], who calls with concerns for severe [...] fair fluid intake. JAMES GARCIA NP [address], [place], [address], [place] [facility] 03/14/2021 13:21:32 2 text/html 76 YO F [...] asscociated sx's. EMELIA Ni [address], [place], [address], [place] [facility] 07/18/2021 12:04:00 2 text/html [...] evaluated. Cristine Sidhu NP [address], [place], [address], [place] [facility] 11/09/2021 02:11:05 2 text/html [...] supernatural. Cristine Sidhu NP [address], [place], [address], [place] [facility] 12/29/2021 14:43:53 3 text/html pt did not answer, visit canceled Olivia Goldberg NP [address], [place], [address], [place] [facility] 01/18/2023 19:34:36 OBGyn Episode No OBEpisode recorded.
--- OUTSIDE RECORDS SUMMARY | 2025-06-26 16:22 | XMS_ITS | Encounter Summary ---
Author Organization [facility], [facility] Address [address] [place] [address] Care Team Providers Care Supervisor Counseling And Guidance Name Role Phone Caitlyn Bowie MD Primary Care Provider +1- [phone] Encounter Details Date Type Department Care Team (Late st Contact Info) Description 03/20/2023 Scanned Document [facility] Radiology [address] [place] [address] Caitlyn Bowie MD [address] [place] [address] Social History Tobacco Use Types Packs/Day Years [...] filedocumented in this encounter Care Teams Supervisor Counseling And Guidance Relationship Specialty Start Date End Date Caitlyn Bowie MD [address] [place] [address] PCP - General Internal Medicine 03/20/23 documented as of this encounter
--- OUTSIDE RECORDS SUMMARY | 2025-06-26 16:22 | XMS_ITS | Encounter Summary ---
Author Organization [facility] Address [address] [place] [address] Phone Care Team Providers Care Senior Ui Designer Name Role Phone Caitlyn Bowie MD Primary Care Provider +1- [phone] Encounter Details Date Type Department Care Team (Late Contact Info) Description 06/11/2025 Documentation Only [facility] [address] [place] [address] Marina Abdi [address] [place] [address] Social History Tobacco Use Types [...] [facility] [address] [place] [address] Rubén Ashraf MD [address] [place] [address] [place] [place] [address] documented as of this encounter Visit Diagnoses Not on filedocumented in this encounter Care Teams Senior Ui Designer Relationship Specialty Start Date End Date Caitlyn Bowie MD [address] [place], [place] PCP - General Internal Medicine 09/24/24 documented as of this encounter
--- OUTSIDE RECORDS SUMMARY | 2025-06-26 16:22 | XMS_ITS | Encounter Summary ---
Author Organization [facility] Address [address] [place] [address] Phone Care Team Providers Care Drop Wire Operator Name Role Phone Caitlyn Bowie MD Primary Care Provider +1- [phone] Encounter Details Date Type Department Care Team (Late Contact Info) Description 06/11/2025 Documentation Only [facility] [address] [place] [address] Marina Abdi [address] [place] [address] Social History Tobacco Use Types [...] [facility] [address] [place] [address] Rubén Ashraf MD [address] [place] [address] [place] [address] documented as of this encounter Visit Diagnoses Not on filedocumented in this encounter Care Teams Drop Wire Operator Relationship Specialty Start Date End Date Caitlyn Bowie MD [address] [place], [place] PCP - General Internal Medicine 09/24/24 documented as of this encounter
--- OUTSIDE RECORDS SUMMARY | 2025-06-26 16:22 | XMS_ITS | Encounter Summary ---
Author Organization [facility] Address [address] [place] [address] Phone Care Team Providers Care Travel Pt Name Role Phone Caitlyn Bowie MD Primary Care Provider +1- [phone] Encounter Details Date Type Department Care Team (Late Contact Info) Description 06/11/2025 Documentation Only [facility] [address] [place] [address] Marina Abdi [address] [place] [address] Social History Tobacco Use Types [...] [facility] [address] [place] [address] Rubén Ashraf MD [address] [place] [address] [place] [address] documented as of this encounter Visit Diagnoses Not on filedocumented in this encounter Care Teams Travel Pt Relationship Specialty Start Date End Date Caitlyn Bowie MD [address] [place], [place] PCP - General Internal Medicine 09/24/24 documented as of this encounter
--- OUTSIDE RECORDS SUMMARY | 2025-06-26 16:22 | XMS_ITS | Clinical Summary ---
Author Organization [facility] [place] [facility], Address [address] [place] [address] [place] [address] Phone Care Team Providers Care Curriculum Consultant Name Role Phone Caitlyn Bowie MD Primary Care Provider +1- [phone] Allergies Active Allergy Reactions Criticality Noted Date Comments Amlodipine Other (see comments) Medium 11/23/2020 flushing Avanafil Anaphylaxis High 07/27/2022 Other reaction(s): Unknown Pt stated that she never taken this medication and do not have a allergy to it Moxifloxacin 12/10/2024 Avocado 12/10/2024 Barium Sulfate 12/10/2024 Bee Pollen Other (see comments) 02/18/2013 Allergic to bee stings Bee Venom 12/10/2024 Clarithromycin 12/10/2024 Buspirone 12/10/2024 CAUSES DIZZINESS, HEADACHE AND FEELING OF THROAT TIGHTNESS Ciprofloxacin 12/10/2024 Clindamycin 12/10/2024 CAUSES THROAT TIGHTENING Iodinated Contrast Media 12/10/2024 Erythromycin 12/10/2024 Metronidazole 12/10/2024 Diatrizoate 12/10/2024 Gentamicin 12/10/2024 Ipratropium 12/10/2024 Isosorbide Nitrate Other (see comments) 11/23/2020 Levofloxacin 12/10/2024 Molds & Smuts Other (see comments) High 04/15/2013 Morphine 12/10/2024 Procaine 12/10/2024 Other 12/10/2024 PATIENT [...] Date Chronic kidney disease, stage 2 (mild) Antiphospholipid syndrome Hypothyroidism Hypertension Hyperlipidemia Encounters Date Type Department Care Team Description 06/11/2025 Documentation Only [facility] [place], [address] [place] [address] Jin, Marina 06/11/2025 Documentation Only [facility] [address] [facility] [address] Jin, Marina 06/11/2025 Documentation Only [facility] [address] [place] [address] Jin, Marina 06/11/2025 Documentation Only [facility] [address] [place] [address] Jin, Marina 06/11/2025 Documentation Only [facility] [address] [place] [address] Jin, Marina 06/11/2025 Documentation Only [facility] [address] [place] [address] Marina Abdi from Last 3 Months Immunizations Immunization Administration [...] Visit [facility] [address] [place] [address] Rubén Ashraf MD [address] [facility] [place] [address] Health Maintenance Due Date Last Done Comments Influenza Vaccine (#1) 2025 0, 04/22/2019, 04/18/2016 Pneumococcal Vaccine: 50+ Years Completed 08/31/2021, 03/25/2016, 09/17/2015, Additional history exists Hepatitis B Vaccine Aged Out No longe r eligible based on patient's age to complete this topic Insurance Medicare [facility] Care Teams Curriculum Consultant Relationship Specialty Start Date End Date Caitlyn Bowie MD [address] [place], [place] PCP - General Internal Medicine 09/24/24
--- OUTSIDE RECORDS SUMMARY | 2025-06-26 16:22 | XMS_ITS | Clinical Summary ---
Author Organization [facility] Address [address] [place] [id number] Phone Care Team Providers Care Automotive Sales Representative [...] (12/25/2021 4:22 PM EDT): Followed closely by supervisor frame assembly-Dr. Ronald Mills at [facility] hematology- advised to continue Coumadin anticoagulation [...] (09/09/2021 10:42 PM EST): Followed closely by supervisor frame assembly-Dr. Ronald Mills at [facility] hematology- last seen on 08/05/2021 and [...] anticoagulation clinic to keep INR [facility] 1[facility]2.0. [facility] current use of systemic steroids 09/09 Assessment & Plan (12/10/2021 10:38 AM EDT): Carefully continue alternating low dosing as prescribed by her poultice machine operator and consider gentle taper when ready. Daily [...] alternating low dosing as prescribed by her poultice machine operator and consider gentle taper when ready. Daily [...] Encounters Date Type Department Care Team Description 06/04/[address] [facility] [address] [place] [address] Anna Ellis MD from Last 3 Months Immunizations Immunization [...] Description 09/03/2025 11:40 AM EST Office Visit [facility] Endocrinology Clinic [address] [place] [phone] Anna Ellis MD [address] [place] [id number] [email or web address] Health Maintenance Due Date Last Done Comments [...] LAB BLOOD BKR ORDERABL ES Final Result [address] [id number] from Last 3 Months or Most Recently Relevant to Health Maintenance Insurance MEDICARE PART A & B [facility] MEDEX SUPPLEMENT [facility] [place]: [facility] [facility] [id number] [place] [address] [facility] MEDIC[facility] PART A & B [facility] MEDEX SUPPLEMENT [facility] MED[facility] PART A & B [facility] MEDEX SUPPLEMENT [facility] PART A & B [facility] MEDEX SUPPLEMENT [facility] & B [facility]EX SUPPLEMENT [facility] & B [facility] MEDEX SUPPLEMENT HEALTH SAFETY [facility] MEDICARE PART A & B [facility] MEDEX SUPPLEMENT HEALTH SAFETY [facility] MEDICARE PART A & B [facility] MEDEX SUPPLEMENT [facility]ALTH SAFETY [facility] MEDICARE PART A & B [facility] MEDEX SUPPLEMENT [facility] SAFETY [facility] Care Teams Automotive Sales Representative Relationship Specialty Start Date End Date Caitlyn Bowie MD PCP - General Internal Medicine 09/09/21 Additional Source Comments The information contained in this document represents components of the legal health record. It is not the complete legal health record.[facility]
--- OUTSIDE RECORDS SUMMARY | 2025-06-26 16:22 | XMS_ITS | Encounter Summary ---
Author Organization [facility] Address [address] [place] [address] Care Team Providers Care Supervisor Publications Name Role Phone Pcp, No Primary Care Provider Brennan Mario MD Primary Care Provider [phone] Caitlyn Bowie MD Primary Care Provider [phone] Encounter Details Date Type Department Care Team (Late st Contact Info) Description 01/04/2022 Scanned Document [facility] Neurology Ophthalmology [address] [id number] Yary Whitten DO [address] [place] [id number] Social History Tobacco Use Types Packs/Day [...] filedocumented in this encounter Care Teams Supervisor Publications Relationship Specialty Start Date End Date Pcp, No PCP - General General Medicine 10/04/21 07/18/22 Brennan Burnett MD [address] [place] [address] PCP - General 07/19/22 03/19/23 Caitlyn Bowie MD [address] [place] [address] PCP - General Internal Medicine 03/20/23 documented as of this encounter
== END 2025-06-26 12:31 | disposition home or self-care (01) ==
LOC: HO.LAB 12:30
PROVIDERS: Absent Provider Internal Medicine Cardiovascular Disease; PCP Internal Medicine; Referring Provider Hospitalist; Visit Provider Internal Medicine
DX: Z01.84 Encounter for antibody response examination (principal); J96.12 Chronic respiratory failure with hypercapnia; J41.0 Simple chronic bronchitis; R07.81 Pleurodynia; R91.1 Solitary pulmonary nodule; D80.9 Immunodeficiency with predominantly antibody defects, unspecified
CPT/HCPCS: 36415; 80048; 82784; 87070; 87205